=== PATIENT | female | born 1980 | race Caucasian/White ===

== ENCOUNTER 2023-03-17 10:43 | Outpatient (OUT) | payer BC, SELFPAY ==
--- NOTE | 2023-03-17 10:52 | XR_ITS ---
The [address] [address] Patient Name: CHASTITY GASPAR MRN: [id number] date: 1980 Sex: F Assigned Patient Location: [facility] Current Patient Location: [facility] Accession/Order Number: [id number] Exam Date: 03/17/2023 10:52 Report Date: 03/17/2023 15:25 At the request of: DAMON LINDER Procedure: XR foot LT min 3V EXAM: XR ankle LT min 3V, XR foot LT min 3V HISTORY: LEFT ANKLE PAIN COMPARISON: 02/04/2023. 01/28/2023. TECHNIQUE: 3 views left ankle. 4 views left foot. FINDINGS: 4 mm wire-like curvilinear metallic foreign body over the medial distal lower leg and similar. Diffuse edema left distal lower leg and ankle with no acute fracture or dislocation. There is mild to moderate degenerative change of the tibiotalar joint. 14 mm metallic wire-like foreign body over the second interspace at the level of the metatarsal shafts is present and similar to prior. Diffuse soft tissue swelling and edema of the left foot. Severe Charcot arthropathy of the left foot is again seen with disruption of the Lisfranc ligament and collapse of the midfoot arch. Findings are overall similar compared to prior. Mild to moderate degenerative change of the great toe MTP joint. IMPRESSION: Marked Charcot arthropathy changes of the foot are similar compared to January and February 2023. Metallic foreign bodies of the foot and distal lower leg similar to prior. Diffuse soft tissue swelling and edema. Electronically authenticated by: KARYN ANTHONY Date: 03/17/2023 15:25
--- NOTE | 2023-03-17 10:53 | XR_ITS ---
The [address] [address] Patient Name: CHASTITY GASPAR MRN: [id number] date: 1980 Sex: F Assigned Patient Location: [facility] Current Patient Location: [facility] Accession/Order Number: [id number] Exam Date: 03/17/2023 10:52 Report Date: 03/17/2023 15:25 At the request of: DAMON LINDER Procedure: XR ankle LT min 3V EXAM: XR ankle LT min 3V, XR foot LT min 3V HISTORY: LEFT ANKLE PAIN COMPARISON: 02/04/2023. 01/28/2023. TECHNIQUE: 3 views left ankle. 4 views left foot. FINDINGS: 4 mm wire-like curvilinear metallic foreign body over the medial distal lower leg and similar. Diffuse edema left distal lower leg and ankle with no acute fracture or dislocation. There is mild to moderate degenerative change of the tibiotalar joint. 14 mm metallic wire-like foreign body over the second interspace at the level of the metatarsal shafts is present and similar to prior. Diffuse soft tissue swelling and edema of the left foot. Severe Charcot arthropathy of the left foot is again seen with disruption of the Lisfranc ligament and collapse of the midfoot arch. Findings are overall similar compared to prior. Mild to moderate degenerative change of the great toe MTP joint. IMPRESSION: Marked Charcot arthropathy changes of the foot are similar compared to January and February 2023. Metallic foreign bodies of the foot and distal lower leg similar to prior. Diffuse soft tissue swelling and edema. Electronically authenticated by: KARYN ANTHONY Date: 03/17/2023 15:25
== END 2023-03-17 10:44 ==
LOC: RAD 10:43
PROVIDERS: PCP Physician Assistant; Visit Provider Physician Assistant
DX: M14.672 Charcot's joint, left ankle and foot (principal)
CPT/HCPCS: 73610; 73630

== ENCOUNTER 2023-04-15 12:53 | Outpatient (OUT) | payer BC, SELFPAY ==
--- NOTE | 2023-04-15 | XR_ITS ---
The [address] [address] Patient Name: CHASTITY GASPAR MRN: [id number] date: 1980 Sex: F Assigned Patient Location: [facility] Current Patient Location: Accession/Order Number: [id number] Exam Date: 04/15/2023 13:10 Report Date: 04/16/2023 07:15 At the request of: FRANCES HARRIS Procedure: XR foot LT min 3V PROCEDURE: XR foot LT min 3V HISTORY: LEFT FOOT PAIN COMPARISON: XR foot left 03/17/2023 FINDINGS: BONES:Advanced degenerative changes the midfoot with fracture or partial obstruction of the navicular bone along with marked widening of the interspace between the medial and middle cuneiforms and the first and second metatarsals seen with Lisfranc fractures. Collapse of the midfoot arch. SOFT TISSUES:Soft tissue swelling surrounding the foot and ankle. Stable thin wire-like metallic foreign body in the soft tissues between the second and third metatarsals. EFFUSION:None visible. OTHER: Negative. XR/XR foot LT min 3V IMPRESSION: 1. Grossly stable advanced degenerative changes consistent with Charcot joint and Lisfranc fracture. Electronically authenticated by: PIPER MERCEDES Date: 04/16/2023 07:15
== END 2023-04-15 12:54 | disposition home or self-care (01) ==
LOC: RAD 12:53
PROVIDERS: Visit Provider Podiatrist Foot & Ankle Surgery
DX: M14.672 Charcot's joint, left ankle and foot (principal)
CPT/HCPCS: 73630

== ENCOUNTER 2023-05-20 13:41 | Outpatient (OUT) | payer BC, SELFPAY ==
--- NOTE | 2023-05-20 | XR_ITS ---
The [address] [address] Patient Name: CHASTITY GASPAR MRN: [id number] date: 1980 Sex: F Assigned Patient Location: [facility] Current Patient Location: [facility] Accession/Order Number: [id number] Exam Date: 05/20/2023 13:57 Report Date: 05/20/2023 22:16 At the request of: FRANCES HARRIS Procedure: XR foot LT min 3V PROCEDURE: XR foot LT min 3V COMPARISON: 04/15/2023 HISTORY: LEFT FOOT PAIN FINDINGS: BONES:Severe degenerative changes of the midfoot extending into the forefoot. Periosteal reaction noted along the diaphysis of the third through fifth metatarsals. Enthesopathic spurring plantar calcaneus. Stable lateral subluxation of the second through fifth metatarsals in relation to the tarsal bones, Lisfranc type dislocation SOFT TISSUES:Soft tissue swelling EFFUSION:None visible. OTHER: Negative. XR/XR foot LT min 3V IMPRESSION: Stable severe degenerative changes of the midfoot consistent with neuropathic osteoarthropathy Electronically authenticated by: EMILY ELY Date: 05/20/2023 22:16
== END 2023-05-20 13:42 | disposition home or self-care (01) ==
LOC: RAD 13:41
PROVIDERS: Visit Provider Podiatrist Foot & Ankle Surgery
DX: M79.672 Pain in left foot (principal)
CPT/HCPCS: 73630

== ENCOUNTER 2023-07-29 14:27 | Outpatient (OUT) | payer BC, SELFPAY ==
--- NOTE | 2023-07-29 | XR_ITS ---
The [address] [address] Patient Name: CHASTITY GASPAR MRN: [id number] date: 1980 Sex: F Assigned Patient Location: [facility] Current Patient Location: Accession/Order Number: [id number] Exam Date: 07/29/2023 14:36 Report Date: 07/30/2023 15:05 At the request of: FRANCES HARRIS Procedure: XR foot LT min 3V PROCEDURE: XR foot LT min 3V HISTORY: LEFT FOOT PAIN COMPARISON: XR foot left 05/20/2023 FINDINGS: BONES:Advanced degenerative changes the midfoot with osseous destruction and stable separate fracture fragments. Collapse of plantar arch. SOFT TISSUES:Stable Thin wire-like metallic foreign body within soft tissues between the second third metatarsals. EFFUSION:None visible. OTHER: Negative. XR/XR foot LT min 3V IMPRESSION: 1. Stable advanced degenerative changes consistent with neuropathic joint. Electronically authenticated by: PIPER MERCEDES Date: 07/30/2023 15:05
== END 2023-07-29 14:28 | disposition home or self-care (01) ==
LOC: RAD 14:27
PROVIDERS: Visit Provider Podiatrist Foot & Ankle Surgery
DX: M14.672 Charcot's joint, left ankle and foot (principal)
CPT/HCPCS: 73630

== ENCOUNTER 2023-09-30 15:04 | Outpatient (OUT) | payer BC, SELFPAY ==
--- NOTE | 2023-09-30 | XR_ITS ---
The [address] [address] Patient Name: CHASTITY GASPAR MRN: [id number] date: 1980 Sex: F Assigned Patient Location: [facility] Current Patient Location: Accession/Order Number: [id number] Exam Date: 09/30/2023 15:40 Report Date: 10/02/2023 07:22 At the request of: FRANCES HARRIS Procedure: XR foot LT min 3V PROCEDURE: XR foot LT min 3V HISTORY: LEFT FOOT PAIN COMPARISON: XR foot left 07/29/2023 FINDINGS: BONES:Advanced degenerative and destructive changes of the bones of the midfoot. Complete loss of plantar arch. SOFT TISSUES:Soft tissue swelling surrounding the ankle and proximal foot. Thin wire-like metallic foreign body within soft tissues between the second third metatarsals, unchanged. EFFUSION:None visible. OTHER: Negative. XR/XR foot LT min 3V IMPRESSION: 1. Stable advanced midfoot degenerative changes compatible with neuropathic joint. Electronically authenticated by: PIPER MERCEDES Date: 10/02/2023 07:22
== END 2023-09-30 15:05 | disposition home or self-care (01) ==
LOC: RAD 15:04
PROVIDERS: Visit Provider Podiatrist Foot & Ankle Surgery
DX: M14.672 Charcot's joint, left ankle and foot (principal)
CPT/HCPCS: 73630

== ENCOUNTER 2023-12-01 10:02 | Outpatient (OUT) | payer BC, SELFPAY ==
--- NOTE | 2023-12-01 | XR_ITS ---
The [address] [address] Patient Name: CHASTITY GASPAR MRN: [id number] date: 1980 Sex: F Assigned Patient Location: Current Patient Location: Accession/Order Number: [id number] Exam Date: 12/01/2023 10:05 Report Date: 12/01/2023 10:50 At the request of: FRANCES HARRIS Procedure: XR foot LT min 3V PROCEDURE: XR foot LT min 3V COMPARISON: 09/30/2023 HISTORY: LEFT FOOT PAIN FINDINGS: BONES:Marked destructive changes of the midfoot and midfoot forefoot junction with bony remodeling and lateral subluxation of the metatarsals in relation to the tarsal bones, grossly stable. Fracture of the medial cuneiform. Moderate enthesopathic spurring plantar calcaneus SOFT TISSUES:Linear radiopaque foreign body projects over the medial third metatarsal EFFUSION:None visible. OTHER: Negative. XR/XR foot LT min 3V IMPRESSION: Severe degenerative changes of the midfoot with bony remodeling consistent with neuropathic osteoarthropathy Electronically authenticated by: EMILY ELY Date: 12/01/2023 10:50
--- OUTSIDE RECORDS SUMMARY | 2023-12-01 10:08 | XMS_ITS | CCD ---
Author Name Unknown Address [address] [place] [address] Organization [facility] Care Team Providers [facility] Manager Name Role Phone Back, Felipe Unavailable Unavailable DAKSHA KING Unavailable Unavailable SHANICE JUARES Unavailable Unava ilable GHAZOUL, GAYE Unavailable Unavailable GHAZOUL, GAYE Unavailable Unavailable GHAZOUL, GAYE Unavailable Unavailable GHAZOUL, GAYE Unavailable Unavailable Back, Bill Unavailable SYSTEM, PROVIDER NOT IN Unavailable Unavaila ble HARTMAN, GOSIA Unavailable Unavailable SYSTEM, PROVIDER NOT IN Unavailable Unavaila ble HARTMAN, GOSIA Unavailable Unavailable GHAZOUL, GAYE Unavailable Unavailable SELF, SELF Unavailable Unavailable GHAZOUL, GAYE Unavailable Unavailable GHAZOUL, GAYE Unavailable Unavailable GHAZOUL, GAYE Unavailable Unavailable GHAZOUL, GAYE Unavailable Unavailable BACK, BILL Unavailable Unavailable HARTMAN, GOSIA Unavailable Unavailable HARTMAN, GOSIA Unavailable Unavailable GHAZOUL, GAYE Unavailable Unavailable BACK, BILL Unavailable Unavailable Hartman, Gosia Unavailable Unavailable Hartman, Gosia Unavailable Unavailable Hartman, Gosia Unavailable Unavailable Hartman, Gosia Unavailable Unavailable Hartman, Gosia Unavailable Unavailable Hartman, Gosia Unavailable Unavailable JV APPLE Admitting Unavailable CURT SUMMERS Referring Unavailable BACK, FELIPE Primary Care Unavailable MORGAN LUIS Consulting Unavailable NANY HOLLIS Attending Unavailable KIERA TERRY Consulting Unavailable LITA MCCRAY Consulting Unavailable Hartman, Dav Admitting Unavailable Hartman, Dav Attending Unavailable Andrey Early Admitting Unavailable Andrey Early Attending Unavailable Mor, Shanice Admitting Unavailable Mor, Shanice Attending Unavailable Melchor Calderon Admitting Unavailable Melchor Calderon Attending Unavailable TIFFANIE CASAS Attending Unavailable TIFFANIE CASAS Referring Unavailable BACK, FELIPE Primary Care Unavailable Back, Felipe Primary Care Provider Back, Felipe Primary Care Provider [phone] Back, Felipe Primary Care Provider Unavailabl e Back , Felipe Primary Care Provider Back , Felipe Primary Care Provider Back , Felipe Primary Care Provider [phone] BACK, FELIPE Primary Care Unavailable MUTNAL, AMAR Admitting Unavailable MUTNAL, AMAR Attending Unavailable Back , Felipe Primary Care Provider [phone] NON STAFF Primary Care Provider UnavailMD Tiffanie Mixon. Attending Provider Back , Felipe Primary Care Provider [phone] YOON COBB Referring Unavailable BACK, FELIPE Primary Care Unavailable Back , Felipe Primary Care Provider KALPESH ARENAS Attending Unavail able BACK, FELIPE Primary Care Unavailable Back , Felipe Primary Care Provider [phone] FRANCES HARRIS Admitting Unavailable FRANCES HARRIS Attending Unavailable FRANCES HARRIS Consulting Unavailable HIGHLFRANCES HERNANDEZ Admitting Unavailable HIGHLFRANCES HERNANDEZ Attending Unavailable [facility], DR PIPER Ackerman Consulting Unavailable HIGHLANDERFRANCES Consulting Unavailable HIGHLANDERFRANCES Admitting Unavailable HIGHLANDERFRANCES Attending Unavailable MARKHAM, DR EMILY Riojas Consulting Unavailable HIGHLFRANCES HERNANDEZ Consulting Unavailable Back , Felipe Primary Care Provider [phone] ROBBIN SHOOK II Admitting Un available HASSMANN II, ROBBIN DAHL Referring Un available BACK, FELIPE Primary Care Unavailable HASSMANN II, ROBBIN DAHL Attending Un available BACK, FELIPE Primary Care Unavailable BACK, FELIPE Primary Care Unavailable HASSMANN II, ROBBIN DAHL Attending Un available Back Felipe MELENDREZ Primary Care Provider [phone] BACKFELIPE Referring Unavailable BACK, FELIPE Primary Care Unavailable BACK, FELIPE Primary Care Unavailable TIFFANIE CASAS Referring Unavailable BACK, FELIPE Primary Care Unavailable ERIK LYMAN Referring Unavailable TIFFANIE CASAS Referring Unavailable BACK, FELIPE Primary Care Unavailable BACK, FELIPE Primary Care Unavailable JERICA KRISHNAMURTHY Referring Unavailable BACK, FELIPE Referring Unavailable BACK, FELIPE Primary Care Unavailable TIFFANIE CASAS Attending Unavailable TIFFANIE CASAS Attending Unavailable Allergies Allergy Classification Reported Allergen(s) Allergy Type Date of Onset Reaction(s) Facility (3 sources) Chlorhexidine; Translations: [CHLORHEXIDINE] Drug Allergy 03-03-2023 Rash [facility] Medications Current Medications Medication Drug Class(es) Dates Sig (Normalized) Sig (Original) acetaminophen 325 mg / HYDROcodone bitartrate 5 mg oral tablet (10 sources) Opioid Agonist Start: 03-12-2019 HYDROcodone-acetam inophen (NORCO) 5-325 MG per tablet take 1 tablet by prabhjot every eight hours as needed hydroCODone-acetaminophen 5-325 MG Tab t ablet take 1 tablet by mouth every 8 hours as needed. Active amoxicillin 875 mg / clavulanate 125 mg oral tablet (1 source) Penicillin-class Antibacterial Start: 08-08-2020 End: 08-15-2020 take 1 tablet by mouth twice daily amoxicillin-clavulanate (AUGMENTIN) 875-125 MG per tablet Indications: Bacterial sinusitis Take 1 tablet by mouth 2 times daily for 7 days 14 tablet 0 08/08/2020 08/15/2020 Active 24 hr amphetamine aspartate 5 mg / amphetamine sulfate 5 mg / dextroamphetamine saccharate 5 mg / dextroamphetamine sulfate 5 mg extended release oral capsule (2 sources) Central Nervous System Stimulant Start: 02-25-2023 dextroamphetamine-ampheta mine (ADDERALL XR) 20 MG 24 hr capsule Start: 01-14-2023 take 1 capsule by mo uth once daily in the morning amphetamine-dextroamphetamine (ADDERALL XR) 20 MG extended release capsule Take 1 capsule by mouth every morning. 0 01/14/2023 Active b complex vitamins (Vitamins B Complex) capsule (1 source) take 1 capsule by mouth once daily b complex vitamins (Vitamins B Complex) capsule Take 1 (one) capsule by mouth daily . 0 Active b complex vitamins capsule (20 sources) take 1 capsule by mouth once daily b complex vitamins capsule Take 1 capsule by mouth daily 0 Active baclofen 10 mg oral tablet (9 sources) gamma-Aminobutyric Acid-ergic Agonist Start: 02-26-2023 take 2 tablets by mouth at bedtime baclofen (LIORESAL) 10 MG tablet TAKE 2 TABLETS BY MOUTH AT BEDTIME FOR 30 DAYS 0 02/26/2023 Active Start: 04-19-2022 baclofen (DORA ESAL) 10 MG tablet biotin 1 mg oral tablet (9 sources) Start: 02-26-2022 Biotin 1000 MC G TABS busPIRone hydrochloride 10 mg oral tablet (6 sources) take 1 tablet by mouth three times daily busPIRone (BUSPAR) 10 MG tablet Take 10 mg by mouth 3 times daily 0 Active calcium carbonate 500 mg oral tablet (3 sources) take 1 tablet by mouth twice daily calcium carbonate (OSCAL) 500 MG TABS tablet Take 1 tablet by mouth 2 times daily 0 Active calcium carbonat e (CALCIUM 500 ORAL) Take by mouth . 0 Active cephalexin 250 mg oral capsule (2 sources) Cephalosporin Antibacterial Start: 08-07-2022 take 1 capsule by mouth once daily as needed for urinary tract infection cephALEXin (KEFLEX) 250 MG capsule Indications: Frequent UTI Take 1 capsule by mouth daily as needed (post-coital UTI prophylaxis) 30 capsule 1 08/07/2022 Active cholecalciferol 0.05 mg oral capsule (20 sources) Vitamin D Start: 09-11-2014 take 1 capsule by mouth once daily Cholecalciferol (VITAMIN D) 2000 UNITS CAPS capsule Indications: Vitamin D deficiency Take 1 capsule by mouth daily. 30 capsule 12 09/11/2014 Active cholecalciferol, vitamin D3, (VITAMIN D3) 2,000 unit Tab Take by mouth. 0 Active ciprofloxacin 250 mg oral tablet (1 source) Quinolone Antimicrobial Start: 04-13-2021 End: 04-16-2021 take 1 tablet by mouth twice daily ciprofloxacin (CIPRO) 250 MG tablet Indications: Acute cystitis with hematuria Take 1 tablet by mouth 2 times daily for 3 days 6 tablet 0 04/13/2021 04/16/2021 Active clindamycin 150 mg oral capsule (6 sources) Lincosamide Antibacterial Start: 07-26-2019 clindamycin (CLEOCIN) 150 MG capsule cyclobenzaprine hydrochloride 5 mg oral tablet (16 sources) Muscle Relaxant take 0.5 tablet by mouth once daily cyclobenzaprine (FLEXERIL) 5 MG tablet Take 5 mg by mouth nightly 1/2 tablet every night 0 Active 24 hr desvenlafaxine succinate 25 mg extended release oral tablet (1 source) Serotonin and Norepinephrine Reuptake Inhibitor Start: 07-29-2021 desvenlafaxine succinate (PRISTIQ) 25 MG TB24 extended release tablet 25 mg daily 0 07/29/2021 Active dextromethorphan hydrobromide 15 mg / guaiFENesin 400 mg / pseudoephedrine hydrochloride 60 mg oral tablet (1 source) alpha-Adrenergic Agonist, Uncompetitive C-zrbujm-[id number]-aspartat e Receptor Antagonist, Sigma-1 Agonist Start: 02-13-2021 End: 02-20-2021 take 1 tablet by mouth every six hours as needed Pseudoephedrine-DM- GG (CAPMIST DM) 60-15-400 MG TABS Take 1 tablet by mouth every 6 hours as needed (Sinus pressure) 28 tablet 0 02/13/2021 02/20/2021 Active diclofenac sodium 0.01 mg/mg topical gel (20 sources) Nonsteroidal Anti-inflammatory Drug Start: 01-06-2023 diclofenac sodium (VOLTAREN) 1 % GEL Start: 05-19-2019 diclofenac sod ium 1 % GEL doxycycline hyclate 100 mg oral capsule (15 sources) Tetracycline-class Drug Start: 09-20-2018 End: 12-12-2020 take 1 capsule by mouth twice daily doxycycline hyclate (VIBRAMYCIN) 100 MG capsule Indications: MRSA (methicillin resistant Staphylococcus aureus) septicemia (HCC) Take 1 capsule by mouth 2 times daily 180 capsule 3 07/28/2019 07/27/2020 Active DULoxetine 30 mg delayed release oral capsule (6 sources) Serotonin and Norepinephrine Reuptake Inhibitor Start: 04-19-2022 DULoxetine (CYMBALTA) 30 MG extended release capsule take 1 capsule by mouth once allen ly DULoxetine (CYMBALTA) 60 MG capsule Take 60 mg by mouth daily. 0 Active erythromycin 0.005 mg/mg ophthalmic ointment (2 sources) Macrolide, Macrolide Antimicrobial Start: 08-19-2017 erythromycin 5 MG/GM Ointment ophthalmic ointment Apply to eye incisions 2 x a day 1 Tube 0 08/19/2017 Active famotidine 20 mg oral tablet (6 sources) Histamine-2 Receptor Antagonist Start: 05-26-2023 take 1 tablet by mouth twice daily famotidine (PEPCID) 20 MG tablet Indications: Gastroesophageal reflux disease without esophagitis Take 1 tablet by mouth 2 times daily 60 tablet 5 05/26/2023 Active Start: 2022 take 1 tablet by prabhjot th twice daily famotidine (PEPCID) 20 MG tablet Indications: Gastroesophageal reflux disease without esophagitis Take 1 tablet by mouth 2 times daily 60 tablet 3 2022 Active fluconazole 150 mg oral tablet (1 source) Azole Antifungal Start: 06-06-2021 fluconazole (DIFLUCAN) 150 MG tablet Indications: Antibiotic-induced yeast infection Take 1 tablet by mouth at first sign of yeast infection and repeat in 72 hours for severe infection. 2 tablet 0 06/06/2021 Active fluticasone propionate 0.05 mg/actuat metered dose nasal spray (20 sources) Corticosteroid Start: 09-22-2022 take 2 spray(s) nasal route once daily fluticasone (FLONASE) 50 MCG/ACT nasal spray Indications: Seasonal allergies USE 2 SPRAYS IN EACH NOSTRIL DAILY 48 g 3 09/22/2022 Active Start: 04-11-2022 take 2 spray(s) nasa l route once daily fluticasone (FLONASE) 50 MCG/ACT nasal spray Indications: Seasonal allergies 2 sprays by Each Nostril route daily 3 each 1 04/11/2022 Active Start: 02-13-2021 take 2 spray(s) nasa l route once daily fluticasone (FLONASE) 50 MCG/ACT nasal spray 2 sprays by Each Nostril route daily 3 Bottle 1 02/13/2021 Active fluticasone 50 M CG/ACT Suspension nasal spray 2 sprays by Nasal route daily. Active gabapentin 600 mg oral tablet (2 sources) Anti-epileptic Agent Start: 06-09-2017 take 1 tablet by mouth twice daily gabapentin 600 MG Tab take 600 mg by mouth 2 times daily. 06/09/2017 Active gemfibrozil 600 mg oral tablet (20 sources) Peroxisome Proliferator Receptor alpha Agonist Start: 02-12-2023 gemfibrozil (LOPID) 600 MG tablet Indications: Mixed hyperlipidemia TAKE 1 TABLET TWICE A DAY 30 MINUTES BEFORE BREAKFAST AND SUPPER 180 tablet 3 02/12/2023 Active Start: 04-11-2022 gemfibrozil (L OPID) 600 MG tablet Indications: Mixed hyperlipidemia TAKE 1 TABLET TWICE A DAY 30 MINUTES BEFORE BREAKFAST AND SUPPER 180 tablet 1 04/11/2022 Active Start: 01-02-2022 gemfibrozil (L OPID) 600 MG tablet Indications: Mixed hyperlipidemia TAKE 1 TABLET TWICE A DAY 30 MINUTES BEFORE BREAKFAST AND SUPPER 180 tablet 1 01/02/2022 Active Start: 10-09-2020 gemfibrozil (L OPID) 600 MG tablet Indications: Mixed hyperlipidemia TAKE 1 TABLET TWICE A DAY 30 MINUTES BEFORE BREAKFAST AND SUPPER 180 tablet 1 10/09/2020 Active Start: 01-31-2020 gemfibrozil (L OPID) 600 MG tablet Indications: Mixed hyperlipidemia TAKE 1 TABLET TWICE A DAY 30 MINUTES BEFORE BREAKFAST AND SUPPER 180 tablet 1 01/31/2020 Active Start: 06-09-2017 gemfibrozil (L OPID) 600 MG tablet Indications: Mixed hyperlipidemia TAKE 1 TABLET TWICE A DAY 30 MINUTES BEFORE BREAKFAST AND SUPPER 180 tablet 1 05/18/2019 Active lansoprazole 30 mg delayed release oral capsule (5 sources) Proton Pump Inhibitor take 1 capsule by mouth once daily lansoprazole (PREVACID) 30 MG capsule Take 30 mg by mouth daily. 0 Active lisdexamfetamine dimesylate 40 mg oral capsule (20 sources) Central Nervous System Stimulant Start: 03-04-20 VYVANSE 40 MG CAPS Start: 05-06-2021 VYVANSE 40 MG CAPS daily. 0 05/06/2021 Active Start: 01-10-2021 VYVANSE 20 MG CAPS loperamide hydrochloride 2 mg oral capsule (1 source) Opioid Agonist Start: 01-21-2021 End: 01-26-2021 take 1 capsule by mouth four times daily as needed for diarrhea loperamide (RA ANTI-DIARRHEAL) 2 MG capsule Indications: Diarrhea in adult patient Take 1 capsule by mouth 4 times daily as needed for Diarrhea 20 capsule 0 01/21/2021 01/26/2021 Active melatonin 3 mg oral tablet (15 sources) melatonin 3 mg T ab Take by mouth nightly. 0 Active methocarbamol 500 mg oral tablet (2 sources) Muscle Relaxant Start: 02-08-2019 methocarbamol (ROBAXIN) 500 MG tablet montelukast 10 mg oral tablet (20 sources) Leukotriene Receptor Antagonist Start: 09-22-2022 montelukast (SINGULAIR) 10 MG tablet Indications: Seasonal allergies TAKE 1 TABLET NIGHTLY 90 tablet 3 09/22/2022 Active Start: 04-11-2022 take 1 tablet by prabhjot th once daily montelukast (SINGULAIR) 10 MG tablet Indications: Seasonal allergies Take 1 tablet by mouth nightly 90 tablet 1 04/11/2022 Active Start: 02-22-2020 montelukast (S INGULAIR) 10 MG tablet nitrofurantoin, macrocrystals 25 mg / nitrofurantoin, monohydrate 75 mg oral capsule (1 source) Nitrofuran Antibacterial Start: 06-11-2021 End: 06-16-2021 take 1 capsule by mouth twice daily nitrofurantoin, macrocrystal-monohydrate, (MACROBID) 100 MG capsule Indications: Acute cystitis with hematuria Take 1 capsule by mouth 2 times daily for 5 days 10 capsule 0 06/11/2021 06/16/2021 Active PARoxetine hydrochloride 20 mg oral tablet (5 sources) Serotonin Reuptake Inhibitor Start: 06-09-2017 take 1 tablet by mouth once daily paroxetine 20 MG Tab take 20 mg by mouth daily. 06/09/2017 Active phentermine hydrochloride 37.5 mg oral tablet (3 sources) Sympathomimetic Amine Anorectic Start: 05-26-2023 End: 06-25-2023 take 1 tablet by mouth once daily before breakfast phentermine (ADIPEX-P) 37.5 MG tablet Indications: Class 2 severe obesity due to excess calories with serious comorbidity and body mass index (BMI) of 38.0 to 38.9 in adult ([facility]) Take 1 tablet by mouth every morning (before breakfast) for 30 days. Max Daily Amount: 37.5 mg 30 tablet 0 05/26/2023 06/25/2023 Active Start: 05-27-2019 End: 06-26-2019 take 40-44.9 capsules by mouth once daily in the morning phentermine (ADIPEX-P) 37.5 MG capsule Indications: Class 3 severe obesity due to excess calories without serious comorbidity with body mass index (BMI) of 40.0 to 44.9 in adult ([facility]) Take 1 capsule by mouth every morning for 30 days. 30 capsule 0 05/27/2019 06/26/2019 Active predniSONE 20 mg oral tablet (1 source) Start: 09-16-2020 End: 09-21-2020 take 3 tablets by mouth once daily predniSONE (DELTASONE) 20 MG tablet Take 3 tablets by mouth daily for 5 days 15 tablet 0 09/16/2020 09/21/2020 Active pregabalin 300 mg oral capsule (19 sources) Start: 02-20-2022 take 1 capsule by mouth twice daily pregabalin (LYRICA) 300 MG capsule Take 1 capsule by mouth 2 times daily. 0 02/20/2022 Active Start: 08-25-2018 take 1 capsule by mo [facility] three times daily pregabalin (LYRICA) 150 MG capsule Indications: Epidural abscess , Discitis of thoracic region , Infection of thoracic spine (HCC) , Peripheral polyneuropathy Take 1 capsule by mouth 3 times daily for 30 days.. 90 capsule 0 08/25/2018 Active raNITIdine 150 mg oral tablet (1 source) Histamine-2 Receptor Antagonist Start: 12-09-2019 take 1 tablet by mouth twice daily raNITIdine (ZANTAC) 150 MG tablet Indications: Epigastric abdominal pain Take 1 tablet by mouth 2 times daily 60 tablet 3 12/09/2019 Active rimegepant 75 mg disintegrating oral tablet (9 sources) Start: 01-02-[address] 1 TABLET ON OR UNDER THE TONGUE EVERY OTHER DAY 0 01/02/2022 Active rOPINIRole 0.5 mg oral tablet (20 sources) Nonergot Dopamine Agonist Start: 02-10-2023 rOPINIRole (REQUIP) 0.5 MG tablet Start: 04-02-2021 take 1 tablet by prabhjot th three times daily rOPINIRole (REQUIP) 1 MG tablet Take 1 tablet by mouth 3 times daily 0 04/02/2021 Active Start: 12-26-2020 rOPINIRole (RE QUIP) 0.5 MG tablet take 1 tablet by prabhjot twice daily rOPINIRole (REQUIP) 0.5 MG tablet Take 0.5 mg by mouth 2 times daily 0 Active sertraline 100 mg oral tablet (20 sources) Serotonin Reuptake Inhibitor Start: 02-25-2023 sertraline (ZOLOFT) 100 MG tablet Start: 07-30-2020 take 2 tablets by mo ut once daily sertraline (ZOLOFT) 100 MG tablet Take 2 tablets by mouth daily Currently decreasing this medication 0 07/30/2020 Active Start: 07-30-2020 take 1 tablet by prabhjot th once daily sertraline (ZOLOFT) 100 MG tablet Take 100 mg by mouth daily Currently decreasing this medication 0 07/30/2020 Active Start: 07-06-2019 take 2 tablets by mo dch once daily sertraline (ZOLOFT) 50 MG tablet Take 100 mg by mouth daily 2 QD 0 07/06/2019 Active Start: 07-06-2019 sertraline (ZO LOFT) 50 MG tablet sucralfate 1000 mg oral tablet (1 source) Aluminum Complex Start: 12-09-2019 take 1 tablet by mouth four times daily before mealtime sucralfate (CARAFATE) 1 GM tablet Indications: Epigastric abdominal pain Take 1 tablet by mouth 4 times daily (before meals and nightly) 120 tablet 0 12/09/2019 Active sulfamethoxazole 800 mg / trimethoprim 160 mg oral tablet (5 sources) Dihydrofolate Reductase Inhibitor Antibacterial, Sulfonamide Antimicrobial Start: 04-28-2022 End: 05-05-2022 take 1 tablet by mouth once in the morning, then take 1 tablet by mouth once at bedtime sulfamethoxazole- trimethoprim (BACTRIM DS) 800-160 MG per tablet Indications: Acute cystitis with hematuria Take 1 tablet by mouth in the morning and 1 tablet before bedtime. Do all this for 7 days. 14 tablet 0 04/28/2022 05/05/2022 Active Start: 01-22-2022 End: 01-29-2022 take 1 tablet by mouth twice daily sulfamethoxazole-trimethoprim (BACTRIM DS;SEPTRA DS) 800-160 MG per tablet Take 1 tablet by mouth 2 times daily for 7 days 14 tablet 0 01/22/2022 01/29/2022 Active Start: 08-01-2021 End: 10-30-2021 take 1 tablet by mouth once daily sulfamethoxazole-trimethoprim (BACTRIM) 400-80 MG per tablet Indications: Frequent UTI , Urinary urgency , Urinary frequency Take 1 tablet by mouth daily Take one tablet after intercourse 30 tablet 2 08/01/2021 10/30/2021 Active tiZANidine 4 mg oral tablet (14 sources) Central alpha-2 Adrenergic Agonist Start: 05-05-2020 tiZANidine (ZANAFLEX) 4 MG tablet Take by mouth nightly 0 05/05/2020 Active topiramate 25 mg oral tablet (6 sources) Start: 06-27-2019 topiramate (TOPAMAX) 25 MG tablet vilazodone hydrochloride 40 mg oral tablet (8 sources) Start: 05-27-2019 take 1 tablet by mouth once daily vilazodone HCl (VIIBRYD) 40 MG TABS Indications: Depression with anxiety Take 1 tablet by mouth daily 30 tablet 3 05/27/2019 Active Completed/Discontinued Medications Medication Drug Class(es) Dates Sig (Normalized) Sig (Original) cetirizine hydrochloride 10 mg oral capsule (18 sources) Histamine-1 Receptor Antagonist Start: 06-09-2017 End: 03-03-2023 cetirizine 10 mg cap Start: 06-09-2017 Cetirizine HCl (ALL DAY ALLERGY) 10 MG Cap Start: 02-11-2016 take 1 tablet by prabhjot th once daily cetirizine (ZYRTEC) 10 MG tablet TAKE 1 TABLET BY MOUTH DAILY. 30 tablet 4 02/11/2016 Active gadobenate dimeglumine (MULTIHANCE) injection 10 mL (1 source) Start: 06-25-2022 End: 06-25-2022 gadobenate dimeglumine (MULTIHANCE) injection 10 mL icosapent ethyl 1000 mg oral capsule (15 sources) Start: 05-17-2019 End: 09-16-2020 take 2 capsules by mouth twice daily, then take 1 capsule by mouth Icosapent Ethyl (VASCEPA) 1 g CAPS capsule Indications: Mixed hyperlipidemia Take 2 capsules by mouth 2 times daily 120 capsule 5 05/17/2019 09/16/2020 Discontinued (LIST CLEANUP) methylPREDNISolone 125 mg injection (1 source) Corticosteroid Start: 09-16-2020 End: 09-16-2020 methylPREDNISolone sodium (SOLU-MEDROL) injection 125 mg Start: 09-16-2020 End: 09-16-2020 methylPREDNISolone sodium (S RON-MEDROL) injection 125 mg 2 ml orphenadrine citrate 30 mg/ml injection (1 source) Muscle Relaxant Start: 09-16-2020 End: 09-16-2020 orphenadrine (NORFLEX) injection 30 mg Problems Active Problems Problem Classification Problem Date Documented Date Episodic/Chronic Anxiety disorders (20 sources) Anxiety; Translations: [Mixed anxiety and depressive disorder] Onset: 3 08-15-2018 Chronic Chronic kidney disease (20 sources) Chronic kidney disease stage 3; Translations: [Chronic renal insufficiency] Onset: 4 07-05-2019 Chronic Chronic kidney disease (15 sources) Chronic renal insufficiency; Translations: [Chronic kidney disease] Onset: 4 10-25-2013 Disorders of lipid metabolism (20 sources) Mixed hypercholesterolemia and hypertriglyceridemia; Translations: [Mixed hyperlipidemia] Onset: 3 Resolved: 7 03-19-2017 Chronic Esophageal disorders (20 sources) Gastroesophageal reflux disease; Translations: [Gastro-esophageal reflux disease without esophagitis] Onset: 4 09-08-2014 Chronic Fracture of lower limb (2 sources) Closed fracture of second metatarsal bone; Translations: [Nondisplaced fracture of second metatarsal bone, left foot, initial encounter for closed fracture] Episodic Genitourinary symptoms and ill-defined conditions (5 sources) Dysuria; Translations: [Dysuria] Episodic Immunizations and screening for infectious disease (2 sources) Suspected disease caused by 2019-nCoV; Translations: [Suspected COVID-19 virus infection] Episodic Infective arthritis and osteomyelitis (except that caused by tuberculosis or sexually transmitted disease) (20 sources) Osteomyelitis, unspecified; Translations: [Infection of thoracic spine] Onset: 8 08-24-2018 Chronic Malaise and fatigue (20 sources) Fatigue; Translations: [Chronic fatigue, unspecified] Onset: 2 07-20-2012 Chronic Nephritis; nephrosis; renal sclerosis (20 sources) Chronic glomerulonephritis; Translations: [Chronic nephritic syndrome with unspecified morphologic changes] Onset: 4 07-05-2019 Chronic Nutritional deficiencies (20 sources) Vitamin D deficiency; Translations: [Vitamin D deficiency, unspecified] Onset: 4 08-15-2018 Chronic Other acquired deformities (1 source) Deformity of lower limb; Translations: [Other specified acquired deformities of unspecified lower leg] 03-03-2023 Episodic Other acquired deformities (2 sources) Other specified acquired deformities of unspecified lower leg; Translations: [Other specified acquired deformities of unspecified lower leg] Onset: 05-30-202 3 Episodic Other circulatory disease (4 sources) Other specified symptoms and signs involving the circulatory and respiratory systems; Translations: [OTH SPEC SX SIGNS INVLV CIRC RS] Onset: 3 Episodic Other connective tissue disease (2 sources) Other muscle spasm; Translations: [Other muscle spasm] Onset: 9 Episodic Other connective tissue disease (1 source) Foot pain; Translations: [Pain in unspecified foot] Episodic Other connective tissue disease (1 source) Foreign body; Translations: [Residual foreign body in soft tissue] Episodic Other connective tissue disease (2 sources) Pain in left leg; Translations: [Pain in left leg] Onset: 3 Episodic Other connective tissue disease (7 sources) Pain in left foot; Translations: [PAIN IN LEFT FOOT] Onset: 3 Episodic Other connective tissue disease (1 source) Pain in left foot; Translations: [Pain in left foot] 03-03-2023 Episodic Other hereditary and degenerative nervous system conditions (20 sources) Restless legs; Translations: [Restless legs syndrome] Onset: 1 05-13-2021 Chronic Other lower respiratory disease (1 source) Dyspnea; Translations: [SOB (shortness of breath)] Episodic Other nervous system disorders (3 sources) Polyneuropathy, unspecified; Translations: [Polyneuropathy, unspecified] Onset: 8 Chronic Other nervous system disorders (20 sources) Peripheral nerve disease ; Translations: [Polyneuropathy, unspecified] Onset: 8 12-01-2017 Chronic Other nervous system disorders (20 sources) Carpal tunnel syndrome of right wrist; Translations: [Carpal tunnel syndrome, right upper limb] Onset: 7 03-05-2017 Chronic Other nervous system disorders (13 sources) Carpal tunnel syndrome of right wrist; Translations: [Carpal tunnel syndrome on right] Onset: 7 03-05-2017 Other non-epithelial cancer of skin (15 sources) Basal cell carcinoma of face; Translations: [Basal cell carcinoma of skin of face] Onset: 7 09-16-2017 Chronic Other non-traumatic joint disorders (4 sources) Charcot's joint, left ankle and foot; Translations: [CHARCOTS JOINT LEFT ANKLE AND FO] Onset: 3 Chronic Other non-traumatic joint disorders (1 source) Charcot arthropathy of midfoot; Translations: [Charcot's joint, unspecified ankle and foot] 03-03-2023 Chronic Other non-traumatic joint disorders (2 sources) Charcot's joint, unspecified ankle and foot; Translations: [Charcot's joint, unspecified ankle and foot] Onset: 3 Chronic Other non-traumatic joint disorders (1 source) Pain in left ankle and joints of left foot; Translations: [PAIN IN LEFT ANKLE] Onset: 3 Episodic Other non-traumatic joint disorders (2 sources) Pain in right wrist; Translations: [Pain in right wrist] Onset: 3 Episodic Other screening for suspected conditions (not mental disorders or infectious disease) (20 sources) Elevated C-reactive protein; Translations: [Elevated C-reactive protein (CRP)] 08-18-2018 Episodic Other screening for suspected conditions (not mental disorders or infectious disease) (13 sources) Elevated C-reactive protein; Translations: [Elevated C-reactive protein (CRP)] 08-18-2018 Other skin disorders (1 source) Mass of neck; Translations: [Localized swelling, mass and lump, neck] Episodic Other upper respiratory disease (20 sources) Seasonal allergy; Translations: [Other seasonal allergic rhinitis] Onset: 4 08-15-2018 Chronic Residual codes; unclassified (20 sources) Obstructive sleep apnea syndrome; Translations: [Obstructive sleep apnea (adult) (pediatric)] Onset: 0 05-11-2020 Chronic Residual codes; unclassified (2 sources) Localized edema; Translations: [Localized edema] Onset: 3 Episodic Residual codes; unclassified (1 source) Pain, unspecified; Translations: [Pain, unspecified] Onset: 3 Episodic Septicemia (except in labor) (20 sources) Sepsis; Translations: [Methicillin resistant Staphylococcus aureus infection] Onset: 8 Resolved: 0 08-15-2018 Episodic Spondylosis; intervertebral disc disorders; other back problems (20 sources) Discitis, unspecified, thoracic region; Translations: [Degeneration of thoracic intervertebral disc] Onset: 4 08-15-2018 Chronic Spondylosis; intervertebral disc disorders; other back problems (4 sources) Radiculopathy, cervical region; Translations: [Acute thoracic back pain] Onset: 9 Episodic Thyroid disorders (8 sources) Thyroid nodule; Translations: [Nontoxic single thyroid nodule] Onset: 2 05-27-2022 Chronic Viral infection (1 source) Viral disease; Translations: [Viral infection, unspecified] Episodic Past or Other Problems Problem Classification Problem Date Documented Date Episodic/Chronic Abdominal pain (2 sources) Female genital organ symptoms; Translations: [Pelvic and perineal pain] Onset: 02-05-2023 Episodic Bacterial infection; unspecified site (20 sources) Methicillin resistant Staphylococcus aureus infection; Translations: [Bacteremia due to Methicillin resistant Staphylococcus aureus] Resolved: 05-11-2020 08-18-2018 Episodic Deficiency and other anemia (7 sources) Anemia; Translations: [Anemia, unspecified] Onset: 2022 2022 Episodic Diabetes mellitus without complication (20 sources) Hyperglycemia; Translations: [Hyperglycemia, unspecified] Onset: 06-24-2013 06-24-2013 Episodic Fluid and electrolyte disorders (20 sources) Lactic acidosis; Translations: [Acidosis] Onset: 08-15-2018 Resolved: 05-11-2020 08-15-2018 Episodic Infective arthritis and osteomyelitis (except that caused by tuberculosis or sexually transmitted disease) (20 sources) Suppurative arthritis; Translations: [Infective arthritis] Onset: 08-20-2018 08-20-2018 Episodic Malaise and fatigue (20 sources) Fatigue; Translations: [Other fatigue] Onset: 07-20-2012 07-20-2012 Episodic Medical examination/evaluatio n (2 sources) Encounter for general adult medical examination without abnormal findings; Translations: [Encounter for general adult medical examination without abnormal findings] Onset: 10-20-2017 Episodic Mood disorders (20 sources) Depressive disorder; Translations: [Major depressive disorder, single episode, unspecified] Onset: 07-20-2012 Resolved: 06-24-2013 06-24-2013 Chronic Neoplasms of unspecified nature or uncertain behavior (20 sources) Neoplasm of uncertain behavior of skin; Translations: [Neoplasm of uncertain behavior of skin] Onset: 02-05-2018 08-03-2017 Episodic Other 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 infection and poliomyelitis (20 sources) Extradural and subdural abscess, unspecified; Translations: [Epidural abscess] Onset: 08-20-2018 08-20-2018 Episodic Other connective tissue disease (1 source) Spasm; Translations: [Spasm of muscle] Episodic Other nervous system disorders (20 sources) Metabolic encephalopathy; Translations: [Metabolic encephalopathy] Resolved: 05-11-2020 08-16-2018 Chronic Other non-epithelial cancer of skin (20 sources) Basal cell carcinoma of skin; Translations: [Basal cell carcinoma of skin, unspecified] Onset: 09-16-2017 09-29-2017 Episodic Urinary tract infections (8 sources) Acute cystitis; Translations: [Acute cystitis with hematuria] Onset: 05-17-2023 Episodic Results Test Name Value Interpretation Reference Range Facility XR WRIST RIGHT (MIN 3 VIEWS) on 08-24-2023 XR WRIST RIGHT (MIN 3 VIEWS) EXAM: XR WRIST RIGHT (MIN 3 VIEWS) HISTORY: Pain COMPARISON: None. IMPRESSION: FINDINGS/IMPRESSION: 1. For age there is moderate degenerative change at the STT joint. 2. Otherwise normal for age. 3. No chondrocalcinosis. 4. Early degenerative change at the 1st metacarpophalangeal joint (thumb). Interpreted by: Micky Lauren Jr., MD Signed by: Micky Lauren Jr., MD 08/24/23 Final result Normal [facility] Lipid Panelon 06-15-2023 Cholesterol [Mass/Vol] 174 mg/dL NINF - 200 mg/dL [facility] Comment on above: Cholesterol Guidelines: <200 Desirable 200-240 Borderline >240 Undesirable Cholesterol in HDL [Mass/Vol] 30 mg/dL Low 40 - PINF mg/dL [facility] Comment on above: HDL Guidelines: <40 Undesirable 40-59 Borderline >59 Desirable Cholesterol in LDL [Mass/Vol] 77 mg/dL 0 - 130 mg/dL [facility] [employer] Comment on above: LDL Guidelines: <100 Desirable 100-129 Near to/above Desirable 130-159 Borderline >159 Undesirable Direct (measured) LDL and calculated LDL are not interchangeable tests. Cholesterol.total/Cho lesterol in HDL [Mass ratio] 5.8 {ratio} High NINF - 5 [facility] [employer] Interpretation and review of laboratory results Abnormal [facility] Triglyceride [Mass/Vol] 334 mg/dL High NINF - 150 mg/dL [facility] Comment on above: Triglyceride Guidelines: <150 Desirable 150-199 Borderline 200-499 High >499 Very high Based on AHA Guidelines for fasting triglyceride, July 2012. [facility] Lipid Profileon 06-15-2023 Cholesterol [Mass/Vol] 174 mg/dL Normal <200 [facility] Comment on above: Result Comment: Cholesterol Guidelines: <200 Desirable 200-240 Borderline >240 Undesirable Performed By: #### L IPR #### [employer] [address] [place] [id number] Parking Garage Manager: Placido Pierce MD Cholesterol in HDL [Mass/Vol] 30 mg/dL Low >40 [facility] Comment on above: Result Comment: HDL Guidelines: <40 Undesirable 40-59 Borderline >59 Desirable Performed By: #### L IPR #### [employer] [address] [place] [address] [id number] Parking Garage Manager: Placido Pierce MD Cholesterol in LDL [Mass/Vol] 77 mg/dL Normal 0-130 [facility] Comment on above: Result Comment: LDL Guidelines: <100 Desirable 100-129 Near to/above Desirable 130-159 Borderline >159 Undesirable Direct (measured) LDL and calculated LDL are not interchangeable tests. Performed By: #### L IPR #### [employer] [address] [place] [address] Parking Garage Manager: Placido Pierce MD Cholesterol.total/Cho lesterol in HDL [Mass ratio] 5.8 {ratio} High <5 [facility] Comment on above: Performed By: #### L IPR #### [employer] [address] [place] [address] Parking Garage Manager: Placido Pierce MD Triglyceride [Mass/Vol] 334 mg/dL High <150 [facility] Comment on above: Result Comment: Triglyceride Guidelines: <150 Desirable 150-199 Borderline 200-499 High >499 Very high Based on AHA Guidelines for fasting triglyceride, July 2012. Performed By: #### L IPR #### [employer] [address] [place] [address] [place] [phone] Parking Garage Manager: Placido Pierce MD US THYROIDon 06-15-2023 US THYROID EXAM: US THYROID HISTORY: Thyroid nodule COMPARISON: 05/27/2022 thyroid ultrasound. FINDINGS: The hypoechoic nodule with macrocalcification, taller than wide in the right lobe measures 6 x 6 x 5 mm and is stable. TI-RADS 5. A benign nodule in the inferior left lobe, solid, wider than tall, nearly isoechoic is stable. Right lobe: 4.9 x 1.3 x 1.7 cm. Isthmus: 4 mm. Left lobe: 4.9 x 1.2 x 1.4 cm. IMPRESSION: Stable subcentimeter right thyroid nodule (less than 1 cm diameter-meets criteria for follow-up, not biopsy). Continued yearly follow-up is recommended. Interpreted by: Micky Lauren Jr., MD Signed by: Micky Lauren Jr., MD 06/15/23 Final result Normal [facility] PTH, Intacton 05-17-2023 PTH, Intact 47.1 pg/mL Normal 14.0-72.0 [facility] Comment on above: Result Comment: SAMP LES FROM PATIENTS ROUTINELY RECEIVING HIGH DOSE BIOTIN THERAPY MAY SHOW FALSELY DEPRESSED RESULTS. ADDITIONAL INFORMATION MAY BE REQUIRED FOR DIAGNOSIS. Performed By: #### B UNCRT, K, NA, GLU, CL, CDP #### [facility] [address] [place] [address] Parking Garage Manager: Emily George MD #### GLYHGB #### [facility] [address] [place], [place] [phone] Parking Garage Manager: Placido Pierce MD Protein,Tot,[place] 2022 Creatinine [Mass/Vol] 146.1 mg/dL Normal 28.0-217.0 [facility] Comment on above: Performed By: #### B UNCRT, K, NA, GLU, CL, CDP #### [facility] [address] [place] [address] Parking Garage Manager: Emily George MD #### GLYHGB #### [address] [address] Parking Garage Manager: Placido Pierce MD Tot Prot. Conc. 10 mg/dL Normal [facility] Comment on above: Result Comment: No n ormal range established. Performed By: #### B UNCRT, K, NA, GLU, CL, CDP #### [facility] [address] [place] [address] Parking Garage Manager: Emily George MD #### GLYHGB #### [address] [address] Parking Garage Manager: Placido Pierce MD TP/Cre Ratio 0.07 Normal 0.00-0.20 [facility] Comment on above: Performed By: #### B UNCRT, K, NA, GLU, CL, CDP #### [facility] [address] [place] [phone] ( Parking Garage Manager: Emily George MD #### GLYHGB #### [address] [phone] Parking Garage Manager: Placido Pierce MD Renal Function Panelon 05-17 Albumin [Mass/Vol] 4.1 g/dL Normal 3.5-5.2 [facility] Comment on above: Performed By: #### B UNCRT, K, NA, GLU, CL, CDP #### [facility] [address] [place] [phone] Parking Garage Manager: Emily George MD #### GLYHGB #### [address] [phone] Parking Garage Manager: Placido Pierce MD Anion gap [Moles/Vol] 7 mmol/L Low 9-17 [facility] Comment on above: Performed By: #### B UNCRT, K, NA, GLU, CL, CDP #### [facility] [address] [place] [address] ( Parking Garage Manager: Emily George MD #### GLYHGB #### [address] [phone] Parking Garage Manager: Placido Pierce MD BUN/CRE Ratio 15 Normal 9-20 [facility] Comment on above: Performed By: #### B UNCRT, K, NA, GLU, CL, CDP #### [facility] [address] [place] [phone] ( Parking Garage Manager: Emily George MD #### GLYHGB #### [place] [phone] Parking Garage Manager: Placido Pierce MD Calcium [Mass/Vol] 9.5 mg/dL Normal 8.6-10.4 [facility] Comment on above: Performed By: #### B UNCRT, K, NA, GLU, CL, CDP #### [facility] [address] [place] [address] Parking Garage Manager: Emily George MD #### GLYHGB #### [address] [phone] Parking Garage Manager: Placido Pierce MD Chloride [Moles/Vol] 101 mmol/L Normal 98-107 [facility] Comment on above: Performed By: #### B UNCRT, K, NA, GLU, CL, CDP #### [facility] [address] [place] [address] Parking Garage Manager: Emily George MD #### GLYHGB #### [address] [phone] Parking Garage Manager: Placido Pierce MD CO2 [Moles/Vol] 29 mmol/L Normal 20-31 [facility] Comment on above: Performed By: #### B UNCRT, K, NA, GLU, CL, CDP #### [facility] [address] [place], [place] [phone] Parking Garage Manager: Emily George MD #### GLYHGB #### [place] [id number] [place], [place] [phone] Parking Garage Manager: Placido Pierce MD Creatinine [Mass/Vol] 1.1 mg/dL High 0.5-0.9 [facility] Comment on above: Performed By: #### B UNCRT, K, NA, GLU, CL, CDP #### [facility] [address] [place] [address] Parking Garage Manager: Emily George MD #### GLYHGB #### [place] [address] [place] [address] Parking Garage Manager: Placido Pierce MD GFR/1.73 sq M.predicted among non-blacks MDRD (S/P/Bld) [Vol rate/Area] mL/min/{1.73_m2} Normal >60 [facility] Comment on above: Result Comment: These results are not intended for use in patients <18 years of age. eGFR results are calculated without a race factor using the 2020 CKD-EPI equation. Careful clinical correlation is recommended, particularly when comparing to results calculated using previous equations. The CKD-EPI equation is less accurate in patients with extremes of muscle mass, extra-renal metabolism of creatine, excessive creatine ingestion, or following therapy that affects renal tubular secretion. Performed By: #### B UNCRT, K, NA, GLU, CL, CDP #### [facility] [address] [place], [place] [phone] Parking Garage Manager: Emily George MD #### GLYHGB #### [place] [address] [place], [place] [phone] Parking Garage Manager: Placido Pierce MD Glucose [Mass/Vol] 105 mg/dL High 70-99 [facility] Comment on above: Performed By: #### B UNCRT, K, NA, GLU, CL, CDP #### [facility] [address] [place], [place] [phone] Parking Garage Manager: Emily George MD #### GLYHGB #### [address] [phone] Parking Garage Manager: Placido Pierce MD Phosphorus, Inorg. 3.0 mg/dL Normal 2.6-4.5 [facility] Comment on above: Performed By: #### B UNCRT, K, NA, GLU, CL, CDP #### [facility] [address] [place] [address] Parking Garage Manager: Emily George MD #### GLYHGB #### [address] [phone] Parking Garage Manager: Placido Pierce MD Potassium [Moles/Vol] 4.3 mmol/L Normal 3.7-5.3 [facility] Comment on above: Performed By: #### B UNCRT, K, NA, GLU, CL, CDP #### [facility] [address] [place] [address] Parking Garage Manager: Emily George MD #### GLYHGB #### [address] [phone] Parking Garage Manager: Placido Pierce MD Sodium [Moles/Vol] 137 mmol/L Normal 135-144 [facility] Comment on above: Performed By: #### B UNCRT, K, NA, GLU, CL, CDP #### [facility] [address] [place] [address] Parking Garage Manager: Emily George MD #### GLYHGB #### [address] [phone] Parking Garage Manager: Placido Pierce MD Urea nitrogen [Mass/Vol] 17 mg/dL Normal 6-20 [facility] Comment on above: Performed By: #### B UNCRT, K, NA, GLU, CL, CDP #### [facility] [address] [place], [place] [phone] Parking Garage Manager: Emily George MD #### GLYHGB #### [facility] [address] [place], [place] [phone] Parking Garage Manager: Placido Pierce MD Vitamin D 25 OHon 05-17-2023 Vitamin D 25 [place] 53.1 ng/mL Normal >29.9 [facility] Comment on above: Result Comment: Reference Range: Vitamin D status Range Deficiency <20 ng/mL Mild Deficiency 20-30 ng/mL Sufficiency 30-100 ng/mL Toxicity >100 ng/mL Performed By: #### B UNCRT, K, NA, GLU, CL, CDP #### [facility] [address] [place] [address] Parking Garage Manager: Emily George MD #### GLYHGB #### [facility] [employer] [address] [place], [place] [phone] Parking Garage Manager: Placido Pierce MD XR ORTHO FOOT LEFTon 023 XR ORTHO FOOT LEFT 3 views of the left foot reviewed today AP MO and lateral. 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 Collapse at the naviculocuneiform joint. Decrease in calcaneal inclination angle and extremely negative Meary's angle. Patient does have some plantar prominence noted that appears to be the cuboid. Dorsal fragmentation present within the space. Also there is a foreign body that appears to be in the second intermetatarsal space close to the third metatarsal that lies deep within the central aspect of the foot. Dictated by: MASSIMO SHOOK on ThuMarch 04, 2023 4:22:25 PM EDT Transcribed by: MASSIMO SHOOK on ThuMarch 04, 2023 4:22:25 PM EDT Finalized by: MASSIMO SHOOK on ThuMarch 04, 2023 4:22:25 PM EDT Normal [facility] Comment on above: Order Comment: Injur y/Trauma or Illness?:Illness/Other How long have you had these symptoms (acute/chronic)?:Chronic Reason for exam?:Left foot charcot History of cancer?:Unknown Surgeries, chemotherapy, or radiation?:Unknown Type of Exam?:Initial Additional signs and symptoms?:Left foot charcot Cult,Urineon 02-07-2023 Cult,Urine Specimen Description .CLEAN CATCH URINE Culture ESCHERICHIA COLI >[id number] CFU/ML Report Status FINAL 02/07/2023 SUSCEPTIBILITY Organism ESCHERICHIA COLI Method SONIA Ampicillin >=32 RESISTANT Cefazolin <=4 SUSCEPTIBLE Cefazolin sensitivity results can be used to predict the effectiveness of oral cephalosporins (eg. Cephalexin) in uncomplicated Urinary Tract Infections due to E. coli, K. pneumoniae, and P. mirabilis Ceftriaxone <=0.25 SUSCEPTIBLE ESBL NEGATIVE Gentamicin <=1 SUSCEPTIBLE Levofloxacin >=8 RESISTANT Nitrofurantoin <=16 SUSCEPTIBLE Piperacillin/Tazobact am <=4 SUSCEPTIBLE Tobramycin <=1 SUSCEPTIBLE Trimethoprim/Sulfa >=320 RESISTANT Resistant [facility] Comment on above: Performed By: #### B UNCRT, K, NA, GLU, CL, CDP #### [facility] [address] [place] [address] Parking Garage Manager: Emily George MD #### GLYHGB #### [facility] [employer] [facility] [place], [place] [phone] Parking Garage Manager: Placdio Pierce MD Hemoglobin A1Con 02-06-2023 Glucose [Mass/Vol] 103 mg/dL Normal [facility] Comment on above: Result Comment: The ADA and AACC recommend providing the estimated average glucose result to permit better patient understanding of their HBA1c result. Performed By: #### B UNCRT, K, NA, GLU, CL, CDP #### [facility] [address] [place] [address] Parking Garage Manager: Emily George MD #### GLYHGB #### [facility] [employer] [facility] [place], [place] [phone] Parking Garage Manager: Placido Pierce MD HbA1c (Bld) [Mass fraction] 5.2 % Normal 4.0-6.0 [facility] Comment on above: Performed By: #### B UNCRT, K, NA, GLU, CL, CDP #### [facility] [address] [place] [address] Parking Garage Manager: Emily George MD #### GLYHGB #### [facility] [address] [place] [address] Parking Garage Manager: Placido Pierce MD BUN & Creatinineon 3 Creatinine [Mass/Vol] 1.08 mg/dL High 0.50 - 0.90 mg/dL [facility] GFR/1.73 sq M.predicted MDRD (S/P/Bld) [Vol rate/Area] - PINF [facility] Comment on above: These results are not intended for use in patients <18 years of age. eGFR results are calculated without a race factor using the 2020 CKD-EPI equation. Careful clinical correlation is recommended, particularly when comparing to results calculated using previous equations. The CKD-EPI equation is less accurate in patients with extremes of muscle mass, extra-renal metabolism of creatine, excessive creatine ingestion, or following therapy that affects renal tubular secretion. Urea nitrogen [Mass/Vol] 21 mg/dL High 6 - 20 mg/dL [facility] BUN + Creatinineon 3 Creatinine [Mass/Vol] 1.08 mg/dL High 0.50-0.90 [facility] Comment on above: Performed By: #### B UNCRT, K, NA, GLU, CL, CDP #### [facility] [address] [place] [address] Parking Garage Manager: Emily George MD #### GLYHGB #### [facility] [address] [place] [address] Parking Garage Manager: Placido Pierce MD GFR/1.73 sq M.predicted among non-blacks MDRD (S/P/Bld) [Vol rate/Area] mL/min/{1.73_m2} Normal >60 [facility] Comment on above: Result Comment: These results are not intended for use in patients <18 years of age. eGFR results are calculated without a race factor using the 2020 CKD-EPI equation. Careful clinical correlation is recommended, particularly when comparing to results calculated using previous equations. The CKD-EPI equation is less accurate in patients with extremes of muscle mass, extra-renal metabolism of creatine, excessive creatine ingestion, or following therapy that affects renal tubular secretion. Performed By: #### B UNCRT, K, NA, GLU, CL, CDP #### [facility] [address] [place], [place] [phone] Parking Garage Manager: Emily George MD #### GLYHGB #### [facility] [address] [place], [place] [phone] Parking Garage Manager: Placido Pierce MD Urea nitrogen [Mass/Vol] 21 mg/dL High 6-20 [facility] Comment on above: Performed By: #### B UNCRT, K, NA, GLU, CL, CDP #### [facility] [address] [place] [address] Parking Garage Manager: Emily George MD #### GLYHGB #### [facility] [address] [place], [place] [phone] Parking Garage Manager: Placido Pierce MD CBC with Auto Differentialon 02-05-2023 Absolute Eos # 0.10 [place] [facility] Absolute Lymph [facility] 1.70 [facility] Absolute [place] # 0.50 [facility] RS [facility] Basophils (Bld) [#/Vol] 0.00 10*3/uL [facility] Basophils/100 WBC (Bld) 1 % 0 - 2 % [facility] Differential Type YES [facility] Eosinophils/100 WBC (Bld) 1 % 0 - 5 % [facility] Hematocrit (Bld) [Volume fraction] 36.2 % 36 - 46 % [facility] Hemoglobin (Bld) [Mass/Vol] 12.2 g/dL 12.0 - 16.0 g/dL [facility] Interpretation and review of laboratory results Abnormal [facility] Lymphocytes/100 WBC (Bld) 23 % 15 - 40 % [facility] MCH (RBC) [Entitic mass] 28.7 pg 26 - 34 pg [facility] MCHC (RBC) [Mass/Vol] 33.7 g/dL 31 - 37 g/dL B [facility] MCV (RBC) [Entitic vol] 85.3 fL 80 - 100 fL [facility] Monocytes/100 WBC (Bld) 7 % 4 - 8 % [facility] Platelet distribution width (Bld) [Ratio] 18.1 % High 12.1 - 15.2 % [facility] Platelets (Bld) [#/Vol] 150 10*3/uL [facility] RBC (Bld) [#/Vol] 4.25 10*6/uL 4.0 - 5.2 m/uL [facility] Segmented neutrophils/100 WBC (Bld) 68 % 47 - 75 % [facility] Segs Absolute 5.30 [facility] WBC (Bld) [#/Vol] 7.6 10*3/uL [facility] SE [facility] CBC with Diffon 02-05-2023 Abs. Basophil 0.00 k/uL Normal 0.0-0.2 [facility] Comment on above: Performed By: #### B UNCRT, K, NA, GLU, CL, CDP #### [facility] [address] [place] [address] Parking Garage Manager: Emily George MD #### GLYHGB #### [facility] [employer] [address] [place] [id number] Parking Garage Manager: Placido Pierce MD Abs.Neutrophil (Seg) 5.30 k/uL Normal 2.5-7.0 [facility] Comment on above: Performed By: #### B UNCRT, K, NA, GLU, CL, CDP #### [facility] [address] [place] [address] Parking Garage Manager: Emily George MD #### GLYHGB #### [facility] [employer] [address] [place] [address] Parking Garage Manager: Placido Pierce MD Auto Diff Performed YES Normal [facility] Comment on above: Performed By: #### B UNCRT, K, NA, GLU, CL, CDP #### [facility] [address] [place], [place] [phone] Parking Garage Manager: Emily George MD #### GLYHGB #### [address] [phone] Parking Garage Manager: Placido Pierce MD Basophils/100 WBC (Bld) 1 % Normal 0-2 [facility] Comment on above: Performed By: #### B UNCRT, K, NA, GLU, CL, CDP #### [facility] [address] [place], [place] [phone] Parking Garage Manager: Emily George MD #### GLYHGB #### [address] [phone] Parking Garage Manager: Placido Pierce MD Eosinophils (Bld) [#/Vol] 0.10 10*3/uL Normal 0.0-0.4 [facility] Comment on above: Performed By: #### B UNCRT, K, NA, GLU, CL, CDP #### [facility] [address] [place], [place] [phone] Parking Garage Manager: Emily George MD #### GLYHGB #### [address] [address] Parking Garage Manager: Placido Pierce MD Eosinophils/100 WBC (Bld) 1 % Normal 0-5 [facility] Comment on above: Performed By: #### B UNCRT, K, NA, GLU, CL, CDP #### [facility] [address] [place], [place] [phone] Parking Garage Manager: Emily George MD #### GLYHGB #### [address] [phone] Parking Garage Manager: Placido Pierce MD Erythrocyte distribution width (RBC) [Ratio] 18.1 % High 12.1-15.2 [facility] Comment on above: Performed By: #### B UNCRT, K, NA, GLU, CL, CDP #### [facility] [address] [place], [place] [phone] Parking Garage Manager: Emily George MD #### GLYHGB #### [address] [phone] Parking Garage Manager: Placido Pierce MD Hematocrit (Bld) [Volume fraction] 36.2 % Normal 36-46 [facility] Comment on above: Performed By: #### B UNCRT, K, NA, GLU, CL, CDP #### [facility] [address] [place] [phone] Parking Garage Manager: Emliy George MD #### GLYHGB #### [address] [phone] Parking Garage Manager: Placido Pierce MD Hemoglobin (Bld) [Mass/Vol] 12.2 g/dL Normal 12.0-16.0 [facility] Comment on above: Performed By: #### B UNCRT, K, NA, GLU, CL, CDP #### [facility] [address] [place] [phone] Parking Garage Manager: Emily George MD #### GLYHGB #### [address] [phone] Parking Garage Manager: Placido Pierce MD Lymphocytes (Bld) [#/Vol] 1.70 10*3/uL Normal 1.0-4.8 [facility] Comment on above: Performed By: #### B UNCRT, K, NA, GLU, CL, CDP #### [facility] [address] [place] [phone] Parking Garage Manager: Emily George MD #### GLYHGB #### [place] [id number] [place], [place] [phone] Parking Garage Manager: Placido Pierce MD Lymphocytes/100 WBC (Bld) 23 % Normal 15-40 [facility] Comment on above: Performed By: #### B UNCRT, K, NA, GLU, CL, CDP #### [facility] [address] [place] [address] ( Parking Garage Manager: Emily George MD #### GLYHGB #### [place] [phone] Parking Garage Manager: Placido Pierce MD MCH (RBC) [Entitic mass] 28.7 pg Normal 26-34 [facility] Comment on above: Performed By: #### B UNCRT, K, NA, GLU, CL, CDP #### [facility] [address] [place] [phone] ( Parking Garage Manager: Emily George MD #### GLYHGB #### [place] [phone] Parking Garage Manager: Placido Pierce MD MCHC (RBC) [Mass/Vol] 33.7 g/dL Normal 31-37 [facility] Comment on above: Performed By: #### B UNCRT, K, NA, GLU, CL, CDP #### [facility] [address] [place] [address] ( Parking Garage Manager: Emily George MD #### GLYHGB #### [place] [phone] Parking Garage Manager: Placido Pierce MD MCV (RBC) [Entitic vol] 85.3 fL Normal 80-100 [facility] Comment on above: Performed By: #### B UNCRT, K, NA, GLU, CL, CDP #### [facility] [address] [place] [address] ( Parking Garage Manager: Emily George MD #### GLYHGB #### [place] [phone] Parking Garage Manager: Placido Pierce MD Monocytes (Bld) [#/Vol] 0.50 10*3/uL Normal 0.0-1.0 [facility] Comment on above: Performed By: #### B UNCRT, K, NA, GLU, CL, CDP #### [facility] [address] [place] [address] ( Parking Garage Manager: Emily George MD #### GLYHGB #### [place] [phone] Parking Garage Manager: Placido Pierce MD Monocytes/100 WBC (Bld) 7 % Normal 4-8 [facility] Comment on above: Performed By: #### B UNCRT, K, NA, GLU, CL, CDP #### [facility] [address] [place] [phone] ( Parking Garage Manager: Emily George MD #### GLYHGB #### [place] [address] Parking Garage Manager: Placido Pierce MD Neutrophil (Seg) 68 % Normal 47-75 [facility] Comment on above: Performed By: #### B UNCRT, K, NA, GLU, CL, CDP #### [facility] [address] [place] [address] Parking Garage Manager: Emily George MD #### GLYHGB #### [place] [address] Parking Garage Manager: Placido Pierce MD Platelets (Bld) [#/Vol] 150 10*3/uL Normal 140-450 [facility] Comment on above: Performed By: #### B UNCRT, K, NA, GLU, CL, CDP #### [facility] [address] [place], [place] [phone] Parking Garage Manager: Emily George MD #### GLYHGB #### [address] [phone] Parking Garage Manager: Placido Pierce MD RBC (Bld) [#/Vol] 4.25 10*6/uL Normal 4.0-5.2 [facility] Comment on above: Performed By: #### B UNCRT, K, NA, GLU, CL, CDP #### [facility] [address] [place], [place] [phone] Parking Garage Manager: Emily George MD #### GLYHGB #### [address] [address] Parking Garage Manager: Placido Pierce MD WBC (Bld) [#/Vol] 7.6 10*3/uL Normal 3.5-11.0 [facility] Comment on above: Performed By: #### B UNCRT, K, NA, GLU, CL, CDP #### [facility] [address] [place], [place] [phone] Parking Garage Manager: Emily George MD #### GLYHGB #### [address] [address] Parking Garage Manager: Placido Pierce MD Chlorideon 02-05-2023 Chloride [Moles/Vol] 99 mmol/L Normal 98-107 [facility] Comment on above: Performed By: #### B UNCRT, K, NA, GLU, CL, CDP #### [facility] [address] [place], [place] [phone] Parking Garage Manager: Emily George MD #### GLYHGB #### [address] [address] Parking Garage Manager: Placido Pierce MD Chloride [Moles/Vol] 99 mmol/L 98 - 10 7 mmol/L [facility] Glucoseon 02-05-2023 Glucose [Mass/Vol] 107 mg/dL High 70-99 [facility] Comment on above: Performed By: #### B UNCRT, K, NA, GLU, CL, CDP #### [facility] [address] [place] [address] Parking Garage Manager: Emily George MD #### GLYHGB #### [facility] [employer] [address] [place] [address] Parking Garage Manager: Placido Pierce MD Glucose, Randomon 02-05-2023 Glucose [Mass/Vol] 107 mg/dL High 70 - 99 mg/dL [facility] K (Potassium)on 02-05-2023 Potassium [Moles/Vol] 4.6 mmol/L Normal 3.7-5.3 [facility] Comment on above: Performed By: #### B UNCRT, K, NA, GLU, CL, CDP #### [facility] [address] [place] [address] Parking Garage Manager: Emily George MD #### GLYHGB #### [facility] [employer] [facility] [place] [address] Parking Garage Manager: Placido Pierce MD NA (Sodium)on 02-05-2023 Sodium [Moles/Vol] 134 mmol/L Low 135-144 [facility] Comment on above: Performed By: #### B UNCRT, K, NA, GLU, CL, CDP #### [facility] [address] [place] [address] Parking Garage Manager: Emily George MD #### GLYHGB #### [facility] [employer] [facility] [place] [address] Parking Garage Manager: Placido Pierce MD No Panel Informationon 02-05 Interpretation and review of laboratory results Abnormal [facility] Potassiumon 02-05-2023 Potassium [Moles/Vol] 4.6 mmol/L 3.7 - 5.3 mmol/L [facility] Sodiumon 02-05-2023 Sodium [Moles/Vol] 134 mmol/L Low 135 - 144 mmol/L [facility] [employer] Trichomonas/Wet Prepon 02-05 Trichomonas/Wet Prep Specimen Descriptio n .VAGINA Direct Exam FEW WBC MODERATE EPITHELIAL CELLS MODERATE BACTERIA NO TRICHOMONAS SEEN NO FUNGAL ELEMENTS SEEN NO CLUECELL SEEN Report Status FINAL 02/05/2023 Normal [facility] Comment on above: Performed By: #### B UNCRT, K, NA, GLU, CL, CDP #### [facility] [address] [place] [address] Parking Garage Manager: Emily George MD #### GLYHGB #### [facility] [employer] [address] [place], [place] [phone] Parking Garage Manager: Placido Pierce MD Wet Prep, Genitalon 02-06-20 Interpretation and review of laboratory results Abnormal [facility] [employer] Microorganism or agent identified Nom (Unsp spec) FEW WBC Abnormal [facility] [employer] Microorganism or agent identified Nom (Unsp spec) MODERATE EPITHELIAL CELLS Abnormal [facility] [employer] Microorganism or agent identified Nom (Unsp spec) MODERATE BACTERIA Abnormal [facility] [employer] Microorganism or agent identified Nom (Unsp spec) NO TRICHOMONAS SEEN [facility] [employer] Microorganism or agent identified Nom (Unsp spec) NO FUNGAL ELEMENTS SEEN [facility] [employer] Microorganism or agent identified Nom (Unsp spec) NO CLUECELL SEEN [facility] [employer] Specimen Description .VAGINA [facility] [employer] CT FOOT LT WO CONon 02-05-[address] FOOT LT WO CON EXAMINATION: CT FOOT LT WO CON HISTORY: Charcot arthropathy of joint of ankle COMPARISON: No relevant comparison available. TECHNIQUE: Multi-planar CT images were created without IV contrast. Dose reduction techniques were achieved by using automated exposure control and/or adjustment of mA and/or kV according to patient size and/or use of iterative reconstruction technique. Multiplanar reformats performed on the local workstation FINDINGS: BONES: Severe lytic destructive changes of the midfoot involving the navicular cuboid and tarsal bones extending into the base of the metatarsals. There is lateral subluxation of the fifth metatarsal relation to the cuboid. SOFT TISSUES: Extensive soft tissue swelling centered at the midfoot EFFUSION: None visible. OTHER: Negative. IMPRESSION: Lytic destructive changes of the midfoot extending into the base of the metatarsals of unknown etiology. 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 Electronically authenticated by: EMILY ELY Date: 2023-02-04 20:14 Normal [facility] XR ANKLE LEFT 3+ VIEWS (ABDOULAYE GALVAN)on 01-06-2023 XR ANKLE LEFT 3+ VIEWS (STANDARD) EXAMINATION: XR ANKLE LEFT 3+ VIEWS (STANDARD) 01/06/2023 4:49 pm HISTORY: ORDERING SYSTEM PROVIDED HISTORY: Pain, injury, TECHNOLOGIST PROVIDED HISTORY: Injury/Trauma Reason for exam: left lateral ankle pain Cancer History: Surgery, RadiationHistory: Encounter Type: Initial Mechanism of injury: rolled ankle 4 days ago ORDERING SYSTEM PROVIDED DIAGNOSIS CODES: IMPRESSION: FINDINGS/ There is collapse of the midfoot which should be better evaluated with dedicated foot radiographs. No ankle fracture identified. 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 [facility] RIS CONSOLIDATED EXAM: MRI FOOT LEFT W WO CONTRAST 10 mL MultiHance. HISTORY: The patient is a 42-year-old female. COMPARISON: Radiographs from 11:17 AM. TECHNIQUE: Sagittal T1, STIR; long axis T1, STIR, postcontrast T1; short axis T1, T2, postcontrast T1. FINDINGS: The metallic foreign body between the second and third metatarsals seen on the accompanying radiographs causes considerable susceptibility artifacts obscuring visualization of the second and third metatarsals. There is fragmentation of the navicular bone as well as of all 3 cuneiforms, particularly the medial cuneiform. This is perhaps better demonstrated on the radiographs and on the current MRI scan. There is mild edema within all of the bones of the midfoot, and the appearance is more that of Charcot neuropathy rather than of osteomyelitis. No abnormal bone marrow signal or edema is seen within the distal tibia, distal fibula, all within the talus or calcaneus indicate the presence of a fracture, stress fracture, bone contusion, or osteomyelitis. No nonenhancing abscess pockets are identified. [facility] Mike Montgomery M D - 06/25/2022 EXAM: MRI FOOT LEFT W WO CONTRAST 10 mL MultiHance. HISTORY: The patient is a 42-year-old female. COMPARISON: Radiographs from 11:17 AM. TECHNIQUE: Sagittal T1, STIR; long axis T1, STIR, postcontrast T1; short axis T1, T2, postcontrast T1. FINDINGS: The metallic foreign body between the second and third metatarsals seen on the accompanying radiographs causes considerable susceptibility artifacts obscuring visualization of the second and third metatarsals. There is fragmentation of the navicular bone as well as of all 3 cuneiforms, particularly the medial cuneiform. This is perhaps better demonstrated on the radiographs and on the current MRI scan. There is mild edema within all of the bones of the midfoot, and the appearance is more that of Charcot neuropathy rather than of osteomyelitis. No abnormal bone marrow signal or edema is seen within the distal tibia, distal fibula, all within the talus or calcaneus indicate the presence of a fracture, stress fracture, bone contusion, or osteomyelitis. No nonenhancing abscess pockets are identified. IMPRESSION: Combined with the accompanying radiographs, 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 [facility] Work Phone: Radiology Study observation (narrative) [employer] Phone: MRI FOOT LEFT W WO CONTRASTO rdered By: Mike Villavicencio on 06-25-2022 [employer] Phone: XR FOOT LEFT (2 VIEWS)on There is a linear metallic foreign body projecting between the second and third metatarsals. There is also a metallic foreign body within the lower leg. There is fragmentation of the navicular as well as of all 3 cuneiforms. The appearance is consistent with the patient's history of neuropathy. [facility] CONSOLIDATED EXAM: XR FOOT LEFT ( 2 VIEWS) HISTORY: M79.5. The patient is a 42-year-old female. Evaluate for foreign body. COMPARISON: None. [facility] CONSOLIDATED Mike Villavicencio M D - 06/25/2022 EXAM: XR FOOT LEFT (2 VIEWS) HISTORY: M79.5. The patient is a 42-year-old female. Evaluate for foreign body. COMPARISON: None. IMPRESSION: There is a linear metallic foreign body projecting between the second and third metatarsals. There is also a metallic foreign body within the lower leg. There is fragmentation of the navicular as well as of all 3 cuneiforms. The appearance is consistent with the patient's history of neuropathy. [employer] Phone: Radiology Study observation (narrative) [employer] Phone: XR FOOT LEFT (2 VIEWS)Ordere d By: Mike Villavicencio on 06-25-2022 [employer] Phone: US HEAD NECK SOFT TISSUE THY ROIDon 05-27-2022 Likely lipoma base of the neck on the right. Clinical follow up recommended. Subcentimeter highly suspicious nodule in the right thyroid lobe 7 mm in greatest dimension. This meets criteria for annual follow up for 5 years. It does not meet criteria for FNA. [facility] CONSOLIDATED EXAM: US HEAD NECK SOFT TISSUE THYROID HISTORY: 41-year-old female palpable lump inferior right neck, 3 weeks. COMPARISON: None. TECHNIQUE: Soft tissue neck/thyroid ultrasound. FINDINGS: Right lobe thyroid: 5.1 x 1.7 x 1.7 cm. A small hypoechoic, solid, nodule in the mid right thyroid lobe measures 7 x 7 x 6 mm with a small amount of macroscopic calcification. Meets criteria for yearly follow up for 5 years. Isthmus: 3 mm. Left lobe: 5.3 x 1.5 x 1.5 cm. Inferior left thyroid lobe nodule, isoechoic with no echogenic foci, wider than tall with smooth margins, solid 1.1 x 1.0 x 0.7 cm. No follow up needed. Scanning over the palpable area of concern shows a 2.2 x 1.6 x 0.9 cm wider than tall smoothly marginated solid nodule, isoechoic to adjacent subcutaneous fat without shadowing, suggestive of a lipoma. [facility] RIS CONSOLIDATED Micky Lauren Jr., MD - 05/27/2022 EXAM: US HEAD NECK SOFT TISSUE THYROID HISTORY: 41-year-old female palpable lump inferior right neck, 3 weeks. COMPARISON: None. TECHNIQUE: Soft tissue neck/thyroid ultrasound. FINDINGS: Right lobe thyroid: 5.1 x 1.7 x 1.7 cm. A small hypoechoic, solid, nodule in the mid right thyroid lobe measures 7 x 7 x 6 mm with a small amount of macroscopic calcification. Meets criteria for yearly follow up for 5 years. Isthmus: 3 mm. Left lobe: 5.3 x 1.5 x 1.5 cm. Inferior left thyroid lobe nodule, isoechoic with no echogenic foci, wider than tall with smooth margins, solid 1.1 x 1.0 x 0.7 cm. No follow up needed. Scanning over the palpable area of concern shows a 2.2 x 1.6 x 0.9 cm wider than tall smoothly marginated solid nodule, isoechoic to adjacent subcutaneous fat without shadowing, suggestive of a lipoma. IMPRESSION: Likely lipoma base of the neck on the right. Clinical follow up recommended. Subcentimeter highly suspicious nodule in the right thyroid lobe 7 mm in greatest dimension. This meets criteria for annual follow up for 5 years. It does not meet criteria for FNA. [employer] Phone: Radiology Study observation (narrative) [facility] [employer] Work Phone: US HEAD NECK SOFT TISSUE THY ROIDOrdered By: Micky Lauren on 05-27-2022 [facility] [employer] Work Phone: Rejection Notificationon Reason see below [facility] Comment on above: Result Comment: Unab le to perform testing; no specimen received. To perform testing the specimen will need to be recollected. No spec Performed By: #### R EJEC #### [facility] [address] [facility] [address] Rejected Test CXURN Normal [facility] Comment on above: Performed By: #### R EJEC #### [facility] [address] [facility] [address] LDL Cholesterol, Directon Cholesterol in LDL [Mass/Vol] 84 mg/dL <100 [facility] CBC with Auto Differentialon 04-12-2022 Absolute E[facility] # 0.[facility] Absolute Lymph # 1.40 [facility] Absolute [place] # 0.30 [facility] RS [facility] Basophils (Bld) [#/Vol] 0.00 10*3/uL [facility] Basophils/100 WBC (Bld) 1 % 0 - 2 % [facility] Differential Type YES [facility] Eosinophils/100 WBC (Bld) 1 % 0 - 5 % [facility] Hematocrit (Bld) [Volume fraction] 35.7 % Low 36 - 46 % [facility] Hemoglobin (Bld) [Mass/Vol] 12.0 g/dL 12.0 - 16.0 g/dL [facility] Interpretation and review of laboratory results Abnormal [facility] Lymphocytes/100 WBC (Bld) 25 % 15 - 40 % [facility] MCH (RBC) [Entitic mass] 28.0 pg 26 - 34 pg [facility] MCHC (RBC) [Mass/Vol] 33.7 g/dL 31 - 37 g/dL [facility] MCV (RBC) [Entitic vol] 83.3 fL 80 - 100 fL [facility] Monocytes/100 WBC (Bld) 5 % 4 - 8 % [facility] Platelet distribution width (Bld) [Ratio] 16.4 % High 12.1 - 15.2 % [facility] Platelets (Bld) [#/Vol] 168 10*3/uL [facility] RBC (Bld) [#/Vol] 4.29 10*6/uL 4.0 - 5.2 m/uL [facility] Segmented neutrophils/100 WBC (Bld) 68 % 47 - 75 % [facility] Segs Absolute 3.90 [facility] WBC (Bld) [#/Vol] 5.7 10*3/uL [facility] Comprehensive Metabolic Pane lyn 04-12-2022 Albumin [Mass/Vol] 4.2 g/dL 3.5 - 5.2 g/dL [facility] ALP (Bld) [Catalytic activity/Vol] 88 U/L 35 - 104 U/L [facility] ALT [Catalytic activity/Vol] 29 U/L 5 - 33 U/L [facility] Anion gap [Moles/Vol] 11 mmol/L 9 - 17 mmol/L [facility] AST [Catalytic activity/Vol] 27 U/L <32 [facility] Bilirubin [Mass/Vol] 0.65 mg/dL 0.30 - 1.20 mg/dL [facility] Calcium [Mass/Vol] 9.1 mg/dL 8.6 - 10. 4 mg/dL [facility] Chloride [Moles/Vol] 101 mmol/L 98 - 10 7 mmol/L [facility] CO2 [Moles/Vol] 28 mmol/L 20 - 31 mmol/L [facility] Creatinine [Mass/Vol] 1.04 mg/dL High 0.50 - 0.90 mg/dL [facility] Free PSA/Total PSA [Mass fraction] 6.8 g/dL 6.4 - 8.3 g/dL [facility] GFR >60 >60 mL/min [facility] GFR Non- 58 mL/min Low >60 [facility] GFR/1.73 sq M.predicted MDRD (S/P/Bld) [Vol rate/Area] [facility] Comment on above: Average GFR for 40-4 9 years old: 99 mL/min/1.73sq m Chronic Kidney Disease: <60 mL/min/1.73sq m Kidney failure: <15 mL/min/1.73sq m eGFR calculated using average adult body mass. Additional eGFR calculator available at: http://www.GHash.IO/multiple_crcl_2012.htm Glucose [Mass/Vol] 103 mg/dL High 70 - 99 mg/dL [facility] Interpretation and review of laboratory results Abnormal [facility] Potassium [Moles/Vol] 3.9 mmol/L 3.7 - 5.3 mmol/L [facility] Sodium [Moles/Vol] 140 mmol/L 135 - 144 mmol/L [facility] Urea nitrogen (BldV) [Mass/Vol] 13 mg/dL 6 - 20 mg/dL [facility] Urea nitrogen/Creatinine (Bld) [Mass ratio] 13 [facility] HIV Screenon 04-12-2022 HIV Ag/Ab Non-Reactive NONREACTIVE [facility] [facility] Comment on above: No laboratory eviden ce of HIV infection. If acute HIV infection is suspected, consider testing for HIV-1 RNA. [facility] Lipid Panelon 04-12-2022 Cholesterol [Mass/Vol] 184 mg/dL <200 [facility] Comment on above: Cholesterol Guidelines: <200 Desirable 200-240 Borderline >240 Undesirable Cholesterol in HDL [Mass/Vol] 30 mg/dL Low >40 [facility] Comment on above: HDL Guidelines: <40 Undesirable 40-59 Borderline >59 Desirable Cholesterol.total/Cho lesterol in HDL [Mass ratio] 6.1 {ratio} High <5 [facility] Interpretation and review of laboratory results Abnormal [facility] LDL Cholesterol 0 - 130 mg/dL [facility] Comment on above: Calculation not jacqueline d for Triglyceride value greater than 400 mg/dL. Direct LDL reflexed LDL Guidelines: <100 Desirable 100-129 Near to/above Desirable 130-159 Borderline >159 Undesirable Direct (measured) LDL and calculated LDL are not interchangeable tests. Triglyceride [Mass/Vol] 460 mg/dL High <150 Appear Comment on above: Triglyceride Guidelines: <150 Desirable 150-199 Borderline 200-499 High >499 Very high Based on AHA Guidelines for fasting triglyceride, July 2012. Appear No Panel Informationon 04-12 Appear TSH with Reflexon 04-12-2022 TSH Qn 0.99 m[IU]/L Appear XR pre/post mri xrayon 02-04 XR pre/post mri xray [facility] Main [place] [address] [place] [address] MRI Report Signed Patient: Celina Gaspar MR#: [id number] 90 : 1980 Acct:[id number] Age/Sex: 41 / F ADM Date: 02/04/22 Loc: [facility] Room: Type: [facility] Attending Dr: Tiffanie Casas MD Ordering Provider: Tiffanie Casas MD Date of Service: 02/04/22 MR/MR lumbar spine wo con: M54.16, M79.10, M79.609, R20.9 ([id number]) XR/XR pre/post mri xray: M54.16, M79.10, M79.609, R20.9 Copies to: Tiffanie Casas MD MR lumbar spine wo con, XR pre/post mri xray 02/04/2022 8:49 AM SIGNS AND SYMPTOMS: Chronic low back pain with bilateral lower extremity weakness PROTOCOL: Multiplanar multisequence MR images of the lumbar spine were obtained without IV contrast. Frontal and lateral radiograph the lumbar spine were obtained. COMPARISON: 04/06/2017 FINDINGS: Radiographs of the lumbar spine: The bones are in anatomic alignment. There is preservation of vertebral body heights and intervertebral discs. There is no fracture or subluxation. Surgical clips are present in the right upper quadrant consistent with prior cholecystectomy. MRI lumbar spine: The bones of the lumbar spine are in anatomic alignment. There is preservation of vertebral body heights and intervertebral disc spaces. The marrow signal is within normal limits. The conus terminates at the T12-L1 intervertebral disc level. No epidural or paraspinous fluid collection is appreciated. At T12-L1: There is a normal disc, central canal, and neural foramen. At L1-L2: There is a normal disc, central canal, and neural foramen. At L2-L3: There is a normal disc, central canal, and neural foramen. At L3-L4: There is a normal disc, central canal, and neural foramen. At L4-L5: There is a normal disc, central canal, and neural foramen. There is a mild right-sided facet effusion. At L5-S1: There is a normal disc, central canal, and neural foramen. MR/MR lumbar spine wo con IMPRESSION: Mild facet degenerative changes are noted with a right-sided facet effusion at L4-5. This is similar to the prior exam. No significant spinal canal or neural foraminal narrowing. Impression dictated by: Nash Doyle M.D.02/04/2022 11:43 AM Dictation Location: [place] [address] Transcribed By: [facility] 02/04/22 1143 Dictated By: Nash Doyle II, MD 02/04/22 1136 Signed By: 02/04/22 1143 [facility] Urinalysis with MicroscopicO rdered By: Lita Weeks on 08-01-2021 - [employer] Work Phone: Amorphous, UA NOT REPORTED None [employer] Work Phone: Bacteria, UA RARE Abnormal None [employer] Work Phone: Bilirubin Urine Negative NEGATIVE [employer] Work Phone: Casts UA NOT REPORTED /LPF [employer] Work Phone: Color, UA Yellow Yellow [employer] Work Phone: Crystals, UA NOT REPORTED None /HPF [employer] [facility] Work Phone: Epithelial Cells UA 2 TO 5 /HPF [employer] Work Phone: Glucose, Ur Negative NEGATIVE [employer] Work Phone: Interpretation and review of laboratory results Abnormal [facility] Work Phone: Ketones Ql (U) Negative NEGATIVE [facility] Work Phone: Leukocyte esterase Test strip Ql (U) Negative NEGATIVE [facility] [employer] Work Phone: Mucus, UA NOT REPORTED None [facility] Work Phone: Nitrite, Urine Negative NEGATIVE [facility] Work Phone: Other Observations UA NOT REPORTED NOT REQ. M [facility] [employer] Work Phone: pH, UA 6.0 [facility] [employer] Work Phone: Protein, UA Negative NEGATIVE [facility] [employer] Work Phone: RBC, UA NOT REPORTED [facility] [employer] Phone: Renal Epithelial, UA NOT REPORTED 0 /HPF [facility] [employer] Work Phone: Specific [place], UA 1.[address] [facility] [employer] Work Phone: Trichomonas, UA NOT REPORTED None [facility] CenterCapt[facility] Media H ealt Work Phone: Turbidity UA Clear Clear [facility] Work Phone: Urinalysis Comments [facility] Work Phone: Urine Hgb Negative NEGATIVE [facility] CenterDailyDigital Phone: Urobilinogen, Urine Normal Normal [facility] [employer] Phone: WBC, UA NOT REPORTED 0 /HPF [facility] Work Phone: Yeast, UA NOT REPORTED None [facility] CenterDaily[facility] Phone: [facility] Work Phone: Urinalysis with MicroscopicO rdered By: Lita Weeks on 07-11-2021 - [facility] Work Phone: Amorphous, UA NOT REPORTED None [employer] [facility] Work Phone: Bacteria, UA 3+ Abnormal None [facility] Work Phone: Bilirubin Urine Negative NEGATIVE [facility] Work Phone: Casts UA NOT REPORTED /LPF [facility] Work Phone: Color, UA Yellow Yellow [facility] Work Phone: Crystals, UA NOT REPORTED None /HPF [facility] Work Phone: Epithelial Cells UA 2 TO 5 /HPF [facility] Work Phone: Glucose, Ur Negative NEGATIVE [facility] [employer] Work Phone: Interpretation and review of laboratory results Abnormal [facility] Work Phone: Ketones Ql (U) Negative NEGATIVE [facility] Work Phone: Leukocyte esterase Test strip Ql (U) 2+ Abnormal NEGATIVE [facility] [employer] Work Phone: Mucus, UA NOT REPORTED None [facility] [employer] Work Phone: Nitrite, Urine Positive Abnormal NEGATIVE [facility] Work Phone: Other Observations UA NOT REPORTED NOT REQ. M [facility] [employer] Work Phone: pH, UA 6.0 [facility] [employer] Work Phone: Protein, UA Negative NEGATIVE [facility] [employer] Work Phone: RBC, UA NOT REPORTED [facility] Work Phone: Renal Epithelial, UA NOT REPORTED 0 /HPF [facility] Work Phone: Specific [place], UA 1.025 [facility] Work Phone: Trichomonas, UA NOT REPORTED None [facility] H ealth Work Phone: Turbidity UA Hazy Abnormal Clear [facility] [employer] Work Phone: Urinalysis Comments [facility] Work Phone: Urine Hgb Negative NEGATIVE [facility] Work Phone: Urobilinogen, Urine Normal Normal [employer] Phone: WBC, UA 20 TO 50 0 /HPF [employer] Phone: Yeast, UA NOT REPORTED None [employer] Phone: [employer] Phone: AlbuminOrdered By: Gregory stevens on 05-20-2021 Albumin [Mass/Vol] 4.2 g/dL 3.5 - 5.2 g/dL [employer] Phone: BUN & CreatinineOrdered By: Gregory Forbes on 05-20-2021 Creatinine [Mass/Vol] 1.18 mg/dL High 0.50 - 0.90 mg/dL [employer] Phone: GFR >60 >60 mL/min [employer] Phone: GFR Non- 50 mL/min Low >60 [employer] Phone: GFR/1.73 sq M.predicted MDRD (S/P/Bld) [Vol rate/Area] [employer] Phone: Comment on above: Average GFR for 40-4 9 years old: 99 mL/min/1.73sq m Chronic Kidney Disease: <60 mL/min/1.73sq m Kidney failure: <15 mL/min/1.73sq m eGFR calculated using average adult body mass. Additional eGFR calculator available at: http://www.ProPlan.Mangia/multiple_crcl_2012.htm GFR/1.73 sq M.predicted MDRD (S/P/Bld) [Vol rate/Area] NOT REPORTED [employer] Phone: Interpretation and review of laboratory results Abnormal [employer] Phone: Urea nitrogen (BldV) [Mass/Vol] 19 mg/dL 6 - 20 mg/dL [employer] Phone: CalciumOrdered By: Gregory stevens on 05-20-2021 Calcium [Mass/Vol] 9.2 mg/dL 8.6 - 10. 4 mg/dL [facility] CenterDailyDigital Phone: Electrolyte PanelOrdered By: Gregory Forbes on 05-20-2021 Anion gap [Moles/Vol] 10 mmol/L 9 - 17 mmol/L [facility] CenterDaily[facility] Phone: Chloride [Moles/Vol] 103 mmol/L 98 - 10 7 mmol/L [facility] Work Phone: CO2 [Moles/Vol] 25 mmol/L 20 - 31 mmol/L [facility] CenterDaily[facility] Phone: Potassium [Moles/Vol] 4.2 mmol/L 3.7 - 5.3 mmol/L [facility] CenterDailyDigital Phone: Sodium [Moles/Vol] 138 mmol/L 135 - 144 mmol/L [facility] CenterDaily[facility] Phone: MagnesiumOrdered By: Gregory high on 05-20-2021 Magnesium [Mass/Vol] 2.2 mg/dL 1.6 - 2 .6 mg/dL [facility] CenterDailyDigital Phone: No Panel InformationOrdered By: Gregory Forbes on 05-20-[address] [facility] CenterDaily[facility] Phone: PhosphorusOrdered By: Gregory Forbes on 05-20-2021 Phosphate [Mass/Vol] 3.7 mg/dL 2.6 - 4 .5 mg/dL [facility] CenterDaily[facility] Phone: UrinalysisOrdered By: Gregory Forbes on 05-20-2021 Bilirubin Urine Negative NEGATIVE [facility] CenterCaptive Media [facility] Work Phone: Color, UA YELLOW YELLOW [facility] Center[facility] Work Phone: Glucose, Ur Negative NEGATIVE [facility] CenterDailyDigital Phone: Interpretation and review of laboratory results Abnormal [facility] Work Phone: Ketones Ql (U) Negative NEGATIVE [employer] Work Phone: Leukocyte esterase Test strip Ql (U) Negative NEGATIVE [employer] Phone: Nitrite, Urine Negative NEGATIVE [employer] Work Phone: pH, UA 5.0 [employer] Phone: Protein, UA TRACE Abnormal NEGATIVE [employer] Phone: Specific [place], UA 1.020 [facility] Work Phone: Turbidity UA CLEAR CLEAR [employer] Work Phone: Urinalysis Comments [employer] Phone: Urine Hgb Negative NEGATIVE [employer] Phone: Urobilinogen, Urine Normal Normal [employer] Phone: [employer] Phone: COVID-19Ordered By: Pattie smith on 01-22-2021 SARS-CoV-2 (COVID-19) RNA SHARMIN+probe Ql (Unsp spec) [employer] Phone: SARS-CoV-2 (COVID-19) RNA SHARMIN+probe Ql (Unsp spec) Not detected Not Detected [employer] Phone: Comment on above: The specimen is NEGATIVE for SARS-CoV-2, the novel coronavirus associated with COVID-19. A negative result does not rule out COVID-19. Twin SARS-CoV-2 for use on the Twin [employer] is a real-time RT-PCR test intended for the qualitative detection of nucleic acids from SARS-CoV-2 in clinician-collected nasal, nasopharyngeal, and oropharyngeal swab specimens from individuals who meet COVID-19 clinical and/or epidemiological criteria. Twin SARS-CoV-2 is for use only under Emergency Use Authorization (EUA) in laboratories certified under Clinical Laboratory Improvement Amendments of 1988 (CLIA), 42 U.S.C. 263a, that meet requirements to perform high or moderate complexity tests. An individual without symptoms of COVID-19 and who is not shedding SARS-CoV-2 virus would expect to have a negative (not detected) result in this assay. Fact sheet for Healthcare Providers: https://www.[employer].gov/media/161623/download Fact sheet for Patients: https://www.[employer].gov/media/919717/download METHODOLOGY: RT-PCR Source .THROAT [facility] [employer] Phone: COVID-19, PCRon 11-15-2020 SARS-CoV-2, Rapid Not Detected Not Detected [facility] [employer] Phone: Comment on above: Rapid NAAT: The specimen is NEGATIVE for SARS-CoV-2, the novel coronavirus associated with COVID-19. The Somewhere NOW COVID-19 assay is designed to detect the virus that causes COVID-19 in patients with signs and symptoms of infection who are suspected of COVID-19. An individual without symptoms of COVID-19 and who is not shedding SARS-CoV-2 virus would expect to have a negative (not detected) result in this assay. Negative results should be treated as presumptive and, if inconsistent with clinical signs and symptoms or necessary for patient management, should be tested with an alternative molecular assay. Negative results do not preclude SARS-CoV-2 infection and should not be used as the sole basis for patient management decisions. Fact sheet for Healthcare Providers: https://www.[employer].gov/media/909263/download Fact sheet for Patients: https://www.fda.gov/media/934165/download Methodology: Isothermal Nucleic Acid Amplification Source .THROAT [facility] [employer] Phone: Otheron 11-15-2020 SARS-CoV-2 [facility] [employer] Phone: CBC Auto Differentialon - Basophils (Bld) [#/Vol] 0.10 10*3/uL [facility], [place] Basophils/100 WBC (Bld) 1 % 0 - 2 % [facility] [place] Differential Type YES [facility] [place] Eosinophils (Bld) [#/Vol] 0.10 10*3/uL [place] Eosinophils/100 WBC (Bld) 1 % 0 - 5 % [place] Erythrocyte distribution width (RBC) [Ratio] 16.3 % High 12.1 - 15.2 % [place] Hematocrit (Bld) [Volume fraction] 36.5 % 36 - 46 % [place] Hemoglobin (Bld) [Mass/Vol] 12.5 g/dL 12 - 16 g/dL [place] Interpretation and review of laboratory results Abnormal [place] Lymphocytes (Bld) [#/Vol] 1.90 10*3/uL [place] Lymphocytes/100 WBC (Bld) 25 % 15 - 40 % [place] MCH (RBC) [Entitic mass] 28.8 pg 26 - 34 pg [place] MCHC (RBC) [Mass/Vol] 34.3 g/dL 31 - 37 g/dL M [place] MCV (RBC) [Entitic vol] 84.0 fL 80 - 100 fL [place] Monocytes (Bld) [#/Vol] 0.40 10*3/uL [place] Monocytes/100 WBC (Bld) 5 % 4 - 8 % [place] Platelet mean volume (Bld) [Entitic vol] NOT REPORTED 6 - 12 fL [place] Platelets (Bld) [#/Vol] 167 10*3/uL [place] Platelets (Bld) [#/Vol] NOT REPORTED [place] RBC (Bld) [#/Vol] 4.35 10*6/uL 4 - 5.2 m/uL [place] RBC morphology finding Nom (Bld) NOT REPORTED [place] Segmented neutrophils/100 WBC (Bld) 68 % 47 - 75 % [place] Segs Absolute 5.40 [place] WBC (Bld) [#/Vol] 7.8 10*3/uL [place] WBC (Bld) [#/Vol] NOT REPORTED per 100 WBC [place] WBC Morphology NOT REPORTED [place] Comprehensive Metabolic Pane l w/ Reflex to MGon 09-16-2020 Albumin [Mass/Vol] 4.4 g/dL 3.5 - 5.2 g/dL [place] Albumin/Globulin [Mass ratio] NOT REPORTED [place] ALP [Catalytic activity/Vol] 117 U/L High 35 - 104 U/L [place] ALT [Catalytic activity/Vol] 41 U/L High 5 - 33 U/L [place] Anion gap [Moles/Vol] 10 mmol/L 9 - 17 mmol/L [place] AST [Catalytic activity/Vol] 39 U/L High <32 [place] Bilirubin Ql (U) 0.52 mg/dL 0.3 - 1.2 mg/dL [place] Bun/Cre Ratio 11 [place] Calcium [Mass/Vol] 9.0 mg/dL 8.6 - 10. 4 mg/dL [place] Chloride [Moles/Vol] 101 mmol/L 98 - 10 7 mmol/L [place] CO2 [Moles/Vol] 26 mmol/L 20 - 31 mmol/L [place] Creatinine [Mass/Vol] 1.32 mg/dL High 0.5 - 0.9 mg/dL [place] GFR 54 mL/min Low >60 [place] GFR Non- 44 mL/min Low >60 [place] GFR/1.73 sq M predicted among non-blacks MDRD (S/P/Bld) [Vol rate/Area] [place] Comment on above: Average GFR for 40-4 9 years old: 99 mL/min/1.73sq m Chronic Kidney Disease: <60 mL/min/1.73sq m Kidney failure: <15 mL/min/1.73sq m eGFR calculated using average adult body mass. Additional eGFR calculator available at: http://www.GHash.IO/multiple_crcl_2012.htm GFR/1.73 sq M predicted among non-blacks MDRD (S/P/Bld) [Vol rate/Area] NOT REPORTED [place] Glucose [Mass/Vol] 173 mg/dL High 70 - 99 mg/dL [place] Interpretation and review of laboratory results Abnormal [place] Potassium [Moles/Vol] 3.9 mmol/L 3.7 - 5.3 mmol/L [place] Protein [Mass/Vol] 7.3 g/dL 6.4 - 8.3 g/dL [place] Sodium [Moles/Vol] 137 mmol/L 135 - 144 mmol/L [place] Urea nitrogen [Mass/Vol] 15 mg/dL 6 - 20 mg/dL [place] Otheron 09-16-2020 Immature granulocytes (Bld) [#/Vol] NOT REPORTED [place] Sedimentation Rateon 020 Sed Rate 15 mm 0 - 20 mm [place] Urinalysis, reflex to micros copicon 09-16-2020 Bilirubin Urine Negative NEGATIVE [place] Color, UA YELLOW YELLOW [place] Glucose, Ur Negative NEGATIVE [place] Interpretation and review of laboratory results Abnormal [place] Ketones Ql (U) Negative NEGATIVE [place] Leukocyte esterase Test strip Ql (U) Negative NEGATIVE [place] Nitrite, Urine Negative NEGATIVE [place] pH, UA 5.0 [place] Protein (U) [Mass/Vol] TRACE Abnormal NEGATIVE [place] Specific [place], UA 1.025 [place] Turbidity UA CLEAR CLEAR [place] Urinalysis Comments [place] Urine Hgb Negative NEGATIVE [place] Urobilinogen, Urine Normal Normal [place] C-Reactive Proteinon 020 CRP [Mass/Vol] 6 mg/L High 0 - 5 mg/L [place] Interpretation and review of laboratory results Abnormal [place] CBC With Auto Differentialon 08-24-2020 Basophils (Bld) [#/Vol] 0.00 10*3/uL [place] Basophils/100 WBC (Bld) 1 % 0 - 2 % [place] Differential Type YES [place] Eosinophils (Bld) [#/Vol] 0.10 10*3/uL [place] Eosinophils/100 WBC (Bld) 1 % 0 - 5 % [place] Erythrocyte distribution width (RBC) [Ratio] 16.2 % High 12.1 - 15.2 % [place] Hematocrit (Bld) [Volume fraction] 35.4 % Low 36 - 46 % [place] Hemoglobin (Bld) [Mass/Vol] 12.2 g/dL 12 - 16 g/dL [place] Interpretation and review of laboratory results Abnormal [place] Lymphocytes (Bld) [#/Vol] 1.60 10*3/uL [place] Lymphocytes/100 WBC (Bld) 28 % 15 - 40 % [place] MCH (RBC) [Entitic mass] 29.1 pg 26 - 34 pg [place] MCHC (RBC) [Mass/Vol] 34.5 g/dL 31 - 37 g/dL M [place] MCV (RBC) [Entitic vol] 84.2 fL 80 - 100 fL [place] Monocytes (Bld) [#/Vol] 0.40 10*3/uL [place] Monocytes/100 WBC (Bld) 6 % 4 - 8 % [place] Platelet mean volume (Bld) [Entitic vol] NOT REPORTED 6 - 12 fL [place] Platelets (Bld) [#/Vol] 160 10*3/uL [place] Platelets (Bld) [#/Vol] NOT REPORTED [place] RBC (Bld) [#/Vol] 4.20 10*6/uL 4 - 5.2 m/uL [place] RBC morphology finding Nom (Bld) NOT REPORTED [place] Segmented neutrophils/100 WBC (Bld) 64 % 47 - 75 % [place] Segs Absolute 3.80 [place] WBC (Bld) [#/Vol] 5.8 10*3/uL [place] WBC (Bld) [#/Vol] NOT REPORTED per 100 WBC [place] WBC Morphology NOT REPORTED [place] Otheron 08-24-2020 Immature granulocytes (Bld) [#/Vol] NOT REPORTED 0 % [place] Sedimentation Rateon 020 Sed Rate 10 mm 0 - 20 mm [place] C-Reactive Proteinon 020 CRP [Mass/Vol] 2 mg/L 0 - 5 mg/L [place] CBC With Auto Differentialon 07-24-2020 Basophils (Bld) [#/Vol] 0.10 10*3/uL [place] Basophils/100 WBC (Bld) 1 % 0 - 2 % [place] Differential Type YES [place] Eosinophils (Bld) [#/Vol] 0.10 10*3/uL [place] Eosinophils/100 WBC (Bld) 1 % 0 - 5 % [place] Erythrocyte distribution width (RBC) [Ratio] 16.8 % High 12.1 - 15.2 % [place] Hematocrit (Bld) [Volume fraction] 40.0 % 36 - 46 % [place] Hemoglobin (Bld) [Mass/Vol] 13.5 g/dL 12 - 16 g/dL [place] Interpretation and review of laboratory results Abnormal [place] Lymphocytes (Bld) [#/Vol] 1.70 10*3/uL [place] Lymphocytes/100 WBC (Bld) 17 % 15 - 40 % [place] MCH (RBC) [Entitic mass] 29.1 pg 26 - 34 pg [place] MCHC (RBC) [Mass/Vol] 33.8 g/dL 31 - 37 g/dL [place] MCV (RBC) [Entitic vol] 86.0 fL 80 - 100 fL [place] Monocytes (Bld) [#/Vol] 0.50 10*3/uL [place] Monocytes/100 WBC (Bld) 5 % 4 - 8 % [place] Platelet mean volume (Bld) [Entitic vol] NOT REPORTED 6 - 12 fL [place] Platelets (Bld) [#/Vol] NOT REPORTED [place] Platelets (Bld) [#/Vol] 208 10*3/uL [place] RBC (Bld) [#/Vol] 4.65 10*6/uL 4 - 5.2 m/uL [place] RBC morphology finding Nom (Bld) NOT REPORTED [place] Segmented neutrophils/100 WBC (Bld) 76 % High 47 - 75 % [place] Segs Absolute 7.70 High [place] WBC (Bld) [#/Vol] NOT REPORTED per 100 WBC [place] WBC (Bld) [#/Vol] 10.0 10*3/uL [place] WBC Morphology NOT REPORTED [place] Otheron 07-24-2020 Immature granulocytes (Bld) [#/Vol] NOT REPORTED 0 % [place] Sedimentation Rateon 020 Sed Rate 6 mm 0 - 20 mm [place] Protein / creatinine ratio, urineon 06-07-2020 Creatinine, Ur 101.2 mg/dL 28 - 217 mg/dL [place] Protein (U) [Mass/Vol] 8 mg/dL [place] Comment on above: No normal range esta blished. Urine Total Protein Creatinine Ratio 0.08 [place] Urinalysison 06-07-2020 Bilirubin Urine Negative NEGATIVE [place] Color, UA YELLOW YELLOW [place] Glucose, Ur 100 mg/dL Abnormal NEGATIVE [place] Interpretation and review of laboratory results Abnormal [place] Ketones Ql (U) Negative NEGATIVE [place] Leukocyte esterase Test strip Ql (U) Negative NEGATIVE [place] Nitrite, Urine Negative NEGATIVE [place] pH, UA 6.0 [place] Protein (U) [Mass/Vol] Negative NEGATIVE [place] Specific [place], UA 1.020 [place] Turbidity UA CLEAR CLEAR [place] Urinalysis Comments [place] Urine Hgb Negative NEGATIVE [place] Urobilinogen, Urine Normal Normal [place] Comprehensive Metabolic Pane lyn 05-25-2020 Albumin [Mass/Vol] 4.4 g/dL 3.5 - 5.2 g/dL [place] Albumin/Globulin [Mass ratio] NOT REPORTED [place] ALP [Catalytic activity/Vol] 87 U/L 35 - 104 U/L [place] ALT [Catalytic activity/Vol] 21 U/L 5 - 33 U/L [place] Anion gap [Moles/Vol] 10 mmol/L 9 - 17 mmol/L [place] AST [Catalytic activity/Vol] 22 U/L <32 [place] Bilirubin Ql (U) 0.32 mg/dL 0.3 - 1.2 mg/dL [place] Bun/Cre Ratio 18 [place] Calcium [Mass/Vol] 10.1 mg/dL 8.6 - 10. 4 mg/dL [place] Chloride [Moles/Vol] 104 mmol/L 98 - 10 7 mmol/L [place] CO2 [Moles/Vol] 26 mmol/L 20 - 31 mmol/L [place] Creatinine [Mass/Vol] 1.37 mg/dL High 0.5 - 0.9 mg/dL [place] GFR 52 mL/min Low >60 [place] GFR Non- 43 mL/min Low >60 [place] GFR/1.73 sq M predicted among non-blacks MDRD (S/P/Bld) [Vol rate/Area] NOT REPORTED [place] GFR/1.73 sq M predicted among non-blacks MDRD (S/P/Bld) [Vol rate/Area] [place] Comment on above: Average GFR for 40-4 9 years old: 99 mL/min/1.73sq m Chronic Kidney Disease: <60 mL/min/1.73sq m Kidney failure: <15 mL/min/1.73sq m eGFR calculated using average adult body mass. Additional eGFR calculator available at: http://www.GHash.IO/multiple_crcl_2012.htm Glucose [Mass/Vol] 160 mg/dL High 70 - 99 mg/dL [place] Interpretation and review of laboratory results Abnormal [place] Potassium [Moles/Vol] 4.6 mmol/L 3.7 - 5.3 mmol/L [place] Protein [Mass/Vol] 7.4 g/dL 6.4 - 8.3 g/dL [place] Sodium [Moles/Vol] 140 mmol/L 135 - 144 mmol/L [place] Urea nitrogen [Mass/Vol] 24 mg/dL High 6 - 20 mg/dL [place] Hemoglobin A1Con 05-25-2020 Glucose [Mass/Vol] 123 mg/dL [place] Comment on above: The ADA and AACC rec ommend providing the estimated average glucose result to permit better patient understanding of their HBA1c result. HbA1c (Bld) [Mass fraction] 5.9 % 4 - 6 % [place] LDL Cholesterol, Directon Cholesterol in LDL [Mass/Vol] 58 mg/dL <100 [place] Lipid Panelon 05-25-2020 Cholesterol [Mass/Vol] 194 mg/dL <200 [place] Comment on above: Cholesterol Guidelines: <200 Desirable 200-240 Borderline >240 Undesirable Cholesterol in HDL [Mass/Vol] 27 mg/dL Low >40 [place] Comment on above: HDL Guidelines: <40 Undesirable 40-59 Borderline >59 Desirable Cholesterol in LDL [Mass/Vol] 0 - 130 mg/dL [place] Comment on above: Calculation not jacqueline d for Triglyceride value greater than 400 mg/dL. Direct LDL reflexed LDL Guidelines: <100 Desirable 100-129 Near to/above Desirable 130-159 Borderline >159 Undesirable Direct (measured) LDL and calculated LDL are not interchangeable tests. Cholesterol in VLDL [Mass/Vol] NOT REPORTED 1 - 30 mg/dL [place], [place] Cholesterol.total/Cho lesterol in HDL [Mass ratio] 7.2 {ratio} High <5 [place] Interpretation and review of laboratory results Abnormal [place] Triglyceride [Mass/Vol] 1112 mg/dL High <150 [place] Comment on above: Triglyceride Guidelines: <150 Desirable 150-199 Borderline 200-499 High >499 Very high Based on AHA Guidelines for fasting triglyceride, July 2012. Patient Fasting?on 0 Patient Fasting? YES [place] Vitamin D 25 Hydroxyon 05-25 Vit D, 25-Hydroxy 30.2 ng/mL 30 - 100 ng/mL [place] Comment on above: Reference Range: Vitamin D status Range Deficiency <20 ng/mL Mild Deficiency 20-30 ng/mL Sufficiency 30-100 ng/mL Toxicity >100 ng/mL C-Reactive Proteinon 020 CRP [Mass/Vol] 6.2 mg/L High 0 - 5 mg/L [place] Interpretation and review of laboratory results Abnormal [place] Hemoglobin [id number] By: Kevin Allen on 09-24-2019 Glucose [Mass/Vol] 108 mg/dL [facility] [employer] Phone: Comment on above: The ADA and AACC rec ommend providing the estimated average glucose result to permit better patient understanding of their HBA1c result. HbA1c (Bld) [Mass fraction] 5.4 % 4.8 - 5.9 % [employer] Phone: Homocysteine, SerumOrdered B y: Janel Allen on 09-24-2019 Homocysteine 9 umol/L <15.0 [employer] Phone: TSH without ReflexOrdered By : Janel Allen on 09-24-2019 TSH Qn 1.03 m[IU]/L [facility]: Vitamin B12 & FolateOrdered By: Janel Allen on 09-24-2019 Cobalamin (Vitamin B12) [Mass/Vol] 292 pg/mL 232 - 1245 pg/mL [employer] Work Phone: Folate 13.8 ng/mL >4.8 [employer] Phone: XR CERVICAL SPINE (4-5 VIEWS )on 07-29-2019 Mild degenerative changes cervical spine not unusual for age. Refer to the [facility] services 02/03/2019 with some of the findings discussed above. [place] EXAM: XR CERVICAL SPINE (4-5 VIEWS) HISTORY: Reason for exam:->history MRSA discitis of thoracic region. New tingling and numbness of fingers COMPARISON: MRI cervical spine [facility] 02/03/2019, cervical spine series 04/03/2010. The MRI 02/03/2019 demonstrated multilevel disc-osteophyte complexes most prominently at C6-C7. Central disc protrusion at C6-C7 with disc-osteophyte complex caused mild canal stenosis with possible myelomalacia or cord edema at C6-C7. TECHNIQUE: Cervical spine series 6 views, 7 images. FINDINGS: Mild degenerative change at C5-C6 and C6-C7 unchanged. No fracture, lytic or blastic lesion. No bony foraminal narrowing. The odontoid is normal. Swimmer's lateral view shows no additional abnormality. 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 New tingling and numbness of fingers COMPARISON: MRI cervical spine [facility] 02/03/2019, cervical spine series 04/03/2010. The MRI 02/03/2019 demonstrated multilevel disc-osteophyte complexes most prominently at C6-C7. Central disc protrusion at C6-C7 with disc-osteophyte complex caused mild canal stenosis with possible myelomalacia or cord edema at C6-C7. TECHNIQUE: Cervical spine series 6 views, 7 images. FINDINGS: Mild degenerative change at C5-C6 and C6-C7 unchanged. No fracture, lytic or blastic lesion. No bony foraminal narrowing. The odontoid is normal. Swimmer's lateral view shows no additional abnormality. IMPRESSION: Mild degenerative changes cervical spine not unusual for age. Refer to the [facility] services 02/03/2019 with some of the findings discussed above. [place] C-Reactive ProteinOrdered By : Azalea Knight on 07-28-2019 CRP [Mass/Vol] 6.4 mg/L High 0 - 5 mg/L [place] Interpretation and review of laboratory results Abnormal [place] CBC With Auto DifferentialOr dered By: Azalea Knight on 07-28-2019 Absolute Eos # 0.10 [place] Absolute Immature Granulocyte NOT REPORTED [place] Absolute Lymph # 2.10 [place] Absolute [place] # 0.50 [place] Basophils (Bld) [#/Vol] 0.00 10*3/uL [place] Basophils/100 WBC (Bld) 1 % 0 - 2 % [place] Differential Type YES [place] Eosinophils/100 WBC (Bld) 1 % 0 - 5 % [place] Erythrocyte distribution width (RBC) [Ratio] 14.5 % 12.1 - 15.2 % [place] Hematocrit (Bld) [Volume fraction] 38.1 % 36 - 46 % [place] Hemoglobin (Bld) [Mass/Vol] 12.9 g/dL 12 - 16 g/dL [place] Immature Granulocytes NOT REPORTED 0 % M [place] Lymphocytes/100 WBC (Bld) 34 % 15 - 40 % [place] MCH (RBC) [Entitic mass] 29.5 pg 26 - 34 pg [place] MCHC (RBC) [Mass/Vol] 33.9 g/dL 31 - 37 g/dL M [place] MCV (RBC) [Entitic vol] 87.1 fL 80 - 100 fL [place] Monocytes/100 WBC (Bld) 8 % 4 - 8 % [place] MPV NOT REPORTED 6 - 12 fL [place] NRBC Automated NOT REPORTED per 100 WBC [place] Platelet Estimate NOT REPORTED [place] Platelets (Bld) [#/Vol] 222 10*3/uL [place] RBC (Bld) [#/Vol] 4.38 10*6/uL 4 - 5.2 m/uL [place] RBC morphology finding Nom (Bld) NOT REPORTED [place] Segmented neutrophils/100 WBC (Bld) 56 % 47 - 75 % [place] Segs Absolute 3.50 [place] WBC (Bld) [#/Vol] 6.2 10*3/uL [place] WBC Morphology NOT REPORTED [place] Sedimentation RateOrdered By : Azalea Knight on 07-28-2019 Sed Rate 19 mm 0 - 30 mm [place] C-Reactive Proteinon 019 CRP [Mass/Vol] 7.3 mg/L High 0 - 5 mg/L [place] Interpretation and review of laboratory results Abnormal [place] Albuminon 06-17-2019 Albumin [Mass/Vol] 4.3 g/dL 3.5 - 5.2 g/dL [place], [place] BUN & Creatinineon 9 Creatinine [Mass/Vol] 1.27 mg/dL High 0.5 - 0.9 mg/dL [place] GFR 56 mL/min Low >60 [place] GFR Non- 47 mL/min Low >60 [place] GFR/1.73 sq M predicted among non-blacks MDRD (S/P/Bld) [Vol rate/Area] NOT REPORTED [place] GFR/1.73 sq M predicted among non-blacks MDRD (S/P/Bld) [Vol rate/Area] [place], [place] Comment on above: Average GFR for 40-4 9 years old: 99 mL/min/1.73sq m Chronic Kidney Disease: <60 mL/min/1.73sq m Kidney failure: <15 mL/min/1.73sq m eGFR calculated using average adult body mass. Additional eGFR calculator available at: http://www.ProPlan.Mangia/multiple_crcl_2011.htm Interpretation and review of laboratory results Abnormal [place] Urea nitrogen [Mass/Vol] 18 mg/dL 6 - 20 mg/dL [place] Calciumon 06-17-2019 Calcium [Mass/Vol] 10.4 mg/dL 8.6 - 10. 4 mg/dL [place] Electrolyte Panelon 06-17-20 19 Anion gap [Moles/Vol] 13 mmol/L 9 - 17 mmol/L [place] Chloride [Moles/Vol] 103 mmol/L 98 - 10 7 mmol/L [place] CO2 [Moles/Vol] 24 mmol/L 20 - 31 mmol/L [place] Potassium [Moles/Vol] 3.8 mmol/L 3.7 - 5.3 mmol/L [place] Sodium [Moles/Vol] 140 mmol/L 135 - 144 mmol/L [place] Hemoglobin and Hematocrit, B loodon 06-17-2019 Hematocrit (Bld) [Volume fraction] 35.4 % Low 36 - 46 % [place] Hemoglobin (Bld) [Mass/Vol] 12.1 g/dL 12 - 16 g/dL [place] Interpretation and review of laboratory results Abnormal [place] Magnesiumon 06-17-2019 Magnesium [Mass/Vol] 2.3 mg/dL 1.6 - 2 .6 mg/dL [place] Microscopic Urinalysison Amorphous, UA NOT REPORTED None [place], [place] Bacteria, UA 1+ Abnormal None [place] Casts UA NOT REPORTED /LPF [place] Crystals UA NOT REPORTED None /HPF [place] Epithelial Cells UA 2 TO 5 /HPF [place] Interpretation and review of laboratory results Abnormal [place] Mucus, UA NOT REPORTED None [place] Other Observations UA NOT REPORTED NOT REQ. M [place] RBC (U) [#/Vol] NOT REPORTED [facility] [place] Renal Epithelial, Urine NOT REPORTED 0 /HPF [place] Trichomonas, UA NOT REPORTED None [place] WBC, UA 0 TO 2 0 /HPF [place] Yeast, UA NOT REPORTED None [place], [place] - [place] Phosphoruson 06-17-2019 Phosphate [Mass/Vol] 3.0 mg/dL 2.6 - 4 .5 mg/dL [place] Protein / creatinine ratio, urineon 06-17-2019 Creatinine, Ur 228.2 mg/dL High 28 - 217 mg/dL [place] Interpretation and review of laboratory results Abnormal [place] Protein (U) [Mass/Vol] 18 mg/dL [place] Comment on above: No normal range esta blished. Urine Total Protein Creatinine Ratio 0.08 [place], [place] Sedimentation Rateon 019 Sed Rate 24 mm 0 - 30 mm [place] Urinalysison 06-17-2019 Bilirubin Urine Negative NEGATIVE [place] Color, UA YELLOW YELLOW [place], [place] Glucose, Ur Negative NEGATIVE [place] Interpretation and review of laboratory results Abnormal [place] Ketones Ql (U) Negative NEGATIVE [place] Leukocyte esterase Test strip Ql (U) Negative NEGATIVE [place] Nitrite, Urine Negative NEGATIVE [place] pH, UA 6.0 [place], [place] Protein (U) [Mass/Vol] TRACE Abnormal NEGATIVE [place] Specific [place], UA 1.025 [place] Turbidity UA HAZY Abnormal CLEAR [place] Urinalysis Comments [place] Urine Hgb Negative NEGATIVE [place] Urobilinogen, Urine Normal Normal [place] MR CERVICAL SPINE WITHOUT CO NTRASTon 02-03-2019 Motion artifact on essentially all of the sequences, somewhat degrading evaluation, particularly fine osseous and soft tissue detail. Disc-osteophyte complexes at C4-C5, C5-C6 and most prominently at C6-C7. At C6-C7, there is a disc-osteophyte complex with central disc protrusion creating effacement of the ventral aspect of the thecal sac, overall mild spinal canal stenosis and probable mild mass effect/impression on the ventral spinal cord. There is possible focal hyperintense intramedullary STIR/T2 signal at the C6-C7 level which may be due to myelomalacia or cord edema. /[facility] Workstation ID: [id number] [facility] EXAMINATION: MR CERVICAL SPINE WITHOUT CONTRAST HISTORY: ORDERING SYSTEM PROVIDED HISTORY: Brachial neuritis, TECHNOLOGIST PROVIDED HISTORY: Reason for exam: neck pain Illness/Other Encounter Type: Initial Additional signs and symptoms: neck pain, chronic hx of multiple old injuries ORDERING SYSTEM PROVIDED DIAGNOSIS CODES: M54.12 Brachial neuritis G62.9 Peripheral nerve disorder M62.838 Spasm of muscle COMPARISON: Cervical spine radiographs from April 03, 2010. TECHNIQUE: Multiplanar, multisequential MR images were performed of the cervical spine without intravenous contrast. FINDINGS: There is motion artifact on essentially all of the sequences, somewhat degrading evaluation. Limited visualization of the structures of the posterior fossa are unremarkable. The craniocervical junction is unremarkable. The vertebral bodies and facets are anatomically aligned. The disc spaces appear relatively maintained. No acute fracture is present. At C2-C3, there is no significant spinal canal or neural foraminal stenosis. At C3-C4, there is no significant spinal canal or neural foraminal stenosis. At C4-C5, there appears to be a disc-osteophyte complex, partially effacing the ventral aspect of the thecal sac without significant spinal canal or neural foraminal stenosis. At C5-C6, there is a disc-osteophyte complex creating effacement of the ventral aspect of the thecal sac and overall mild spinal canal stenosis. It is difficult to definitively characterize whether there is mild impression on the ventral aspect of the spinal cord given the degree of motion artifact. There is left-sided uncovertebral joint and facet hypertrophy creating mild left neural foraminal stenosis. At C6-C7, there is a disc-osteophyte complex with central disc protrusion creating effacement of the ventral aspect of the thecal sac, overall mild spinal canal stenosis and probable mass effect/impression on the ventral spinal cord (series 5, image 8 and series 7, image 18). There is mild bilateral uncovertebral joint and facet hypertrophy creating mild bilateral neural foraminal stenosis. There may be focal hyperintense intramedullary STIR/T2 signal at the C6-C7 level as on series 8, image 9 and series 10 images 18-21). At C7-T1, there is no significant spinal canal stenosis. There is left-sided uncovertebral joint and facet hypertrophy creating probable mild left-sided neural foraminal stenosis. [facility], Prasad In Aric Mohanq - 02/03/2019 11:02 AM EDT EXAMINATION: MR CERVICAL SPINE WITHOUT CONTRAST HISTORY: ORDERING SYSTEM PROVIDED HISTORY: Brachial neuritis, TECHNOLOGIST PROVIDED HISTORY: Reason for exam: neck pain Illness/Other Encounter Type: Initial Additional signs and symptoms: neck pain, chronic hx of multiple old injuries ORDERING SYSTEM PROVIDED DIAGNOSIS CODES: M54.12 Brachial neuritis G62.9 Peripheral nerve disorder M62.838 Spasm of muscle COMPARISON: Cervical spine radiographs from April 03, 2010. TECHNIQUE: Multiplanar, multisequential MR images were performed of the cervical spine without intravenous contrast. FINDINGS: There is motion artifact on essentially all of the sequences, somewhat degrading evaluation. Limited visualization of the structures of the posterior fossa are unremarkable. The craniocervical junction is unremarkable. The vertebral bodies and facets are anatomically aligned. The disc spaces appear relatively maintained. No acute fracture is present. At C2-C3, there is no significant spinal canal or neural foraminal stenosis. At C3-C4, there is no significant spinal canal or neural foraminal stenosis. At C4-C5, there appears to be a disc-osteophyte complex, partially effacing the ventral aspect of the thecal sac without significant spinal canal or neural foraminal stenosis. At C5-C6, there is a disc-osteophyte complex creating effacement of the ventral aspect of the thecal sac and overall mild spinal canal stenosis. It is difficult to definitively characterize whether there is mild impression on the ventral aspect of the spinal cord given the degree of motion artifact. There is left-sided uncovertebral joint and facet hypertrophy creating mild left neural foraminal stenosis. At C6-C7, there is a disc-osteophyte complex with central disc protrusion creating effacement of the ventral aspect of the thecal sac, overall mild spinal canal stenosis and probable mass effect/impression on the ventral spinal cord (series 5, image 8 and series 7, image 18). There is mild bilateral uncovertebral joint and facet hypertrophy creating mild bilateral neural foraminal stenosis. There may be focal hyperintense intramedullary STIR/T2 signal at the C6-C7 level as on series 8, image 9 and series 10 images 18-21). At C7-T1, there is no significant spinal canal stenosis. There is left-sided uncovertebral joint and facet hypertrophy creating probable mild left-sided neural foraminal stenosis. IMPRESSION: Motion artifact on essentially all of the sequences, somewhat degrading evaluation, particularly fine osseous and soft tissue detail. Disc-osteophyte complexes at C4-C5, C5-C6 and most prominently at C6-C7. At C6-C7, there is a disc-osteophyte complex with central disc protrusion creating effacement of the ventral aspect of the thecal sac, overall mild spinal canal stenosis and probable mild mass effect/impression on the ventral spinal cord. There is possible focal hyperintense intramedullary STIR/T2 signal at the C6-C7 level which may be due to myelomalacia or cord edema. /[employer] Workstation ID: [id number] [facility] MR CERVICAL SPINE WITHOUT CONTRAST EXAMINATION: MR CERVICAL SPINE WITHOUT CONTRAST HISTORY: ORDERING SYSTEM PROVIDED HISTORY: Brachial neuritis, TECHNOLOGIST PROVIDED HISTORY: Reason for exam: neck pain Illness/Other Encounter Type: Initial Additional signs and symptoms: neck pain, chronic hx of multiple old injuries ORDERING SYSTEM PROVIDED DIAGNOSIS CODES: M54.12 Brachial neuritis G62.9 Peripheral nerve disorder M62.838 Spasm of muscle COMPARISON: Cervical spine radiographs from April 03, 2010. TECHNIQUE: Multiplanar, multisequential MR images were performed of the cervical spine without intravenous contrast. FINDINGS: There is motion artifact on essentially all of the sequences, somewhat degrading evaluation. Limited visualization of the structures of the posterior fossa are unremarkable. The craniocervical junction is unremarkable. The vertebral bodies and facets are anatomically aligned. The disc spaces appear relatively maintained. No acute fracture is present. At C2-C3, there is no significant spinal canal or neural foraminal stenosis. At C3-C4, there is no significant spinal canal or neural foraminal stenosis. At C4-C5, there appears to be a disc-osteophyte complex, partially effacing the ventral aspect of the thecal sac without significant spinal canal or neural foraminal stenosis. At C5-C6, there is a disc-osteophyte complex creating effacement of the ventral aspect of the thecal sac and overall mild spinal canal stenosis. It is difficult to definitively characterize whether there is mild impression on the ventral aspect of the spinal cord given the degree of motion artifact. There is left-sided uncovertebral joint and facet hypertrophy creating mild left neural foraminal stenosis. At C6-C7, there is a disc-osteophyte complex with central disc protrusion creating effacement of the ventral aspect of the thecal sac, overall mild spinal canal stenosis and probable mass effect/impression on the ventral spinal cord (series 5, image 8 and series 7, image 18). There is mild bilateral uncovertebral joint and facet hypertrophy creating mild bilateral neural foraminal stenosis. There may be focal hyperintense intramedullary STIR/T2 signal at the C6-C7 level as on series 8, image 9 and series 10 images 18-21). At C7-T1, there is no significant spinal canal stenosis. There is left-sided uncovertebral joint and facet hypertrophy creating probable mild left-sided neural foraminal stenosis. IMPRESSION: Motion artifact on essentially all of the sequences, somewhat degrading evaluation, particularly fine osseous and soft tissue detail. Disc-osteophyte complexes at C4-C5, C5-C6 and most prominently at C6-C7. At C6-C7, there is a disc-osteophyte complex with central disc protrusion creating effacement of the ventral aspect of the thecal sac, overall mild spinal canal stenosis and probable mild mass effect/impression on the ventral spinal cord. There is possible focal hyperintense intramedullary STIR/T2 signal at the C6-C7 level which may be due to myelomalacia or cord edema. /[facility] Workstation ID: [id number] Dictated by: RONALD MCCRAY on ThuFebruary 03, 2019 10:34:16 AM EDT Transcribed by: FELICITY DE JESUS on ThuFebruary 03, 2019 10:58:51 AM EDT Finalized by: RONALD MCCRAY on ThuFebruary 03, 2019 10:59:35 AM EDT [facility] Comment on above: Order Comment: Reaso n for exam?:neck pain Injury/Trauma or Illness?:Illness/Other How long have you had these symptoms (acute/chronic)?:Chronic Type of Exam?:Initial Additional signs and symptoms?:neck pain, chronic hx of multiple old injuries Cult,Mycobacteriaon 10-11-19 19 Cult,Mycobacteria Specimen Description .TISSUE EPIDURAL TISSUE Special Requests NOT REPORTED Direct Exam NO ACID FAST BACILLI SEEN (DIRECT SMEAR) Culture NO GROWTH 48 DAYS Report Status FINAL 10/11/2018 [facility] Comment on above: Performed By: #### T ROPI #### [facility] [address] [place] [address] Cult,Mycobacteria Specimen Description .SPINE .TISSUE T4 LAMINA Special Requests NOT REPORTED Direct Exam NO ACID FAST BACILLI SEEN (DIRECT SMEAR) Culture NO GROWTH 48 DAYS Report Status FINAL 10/11/2018 [facility] Comment on above: Performed By: #### L ACWB #### [id number] [place] [address] Cult,Funguson 09-27-2018 Cult,Fungus Specimen Description .TISSUE EPIDURAL TISSUE Special Requests NOT REPORTED Culture NO GROWTH 34 DAYS Report Status FINAL 09/27/2018 [facility] Comment on above: Performed By: #### L ACWB #### [address] [address] Cult,Fungus Specimen Description .SPINE .TISSUE T4 LAMINA Special Requests NOT REPORTED Culture NO GROWTH 34 DAYS Report Status FINAL 09/27/2018 [facility] Comment on above: Performed By: #### L ACWB #### [address] [address] BUNon 09-23-2018 Urea nitrogen mass conc 20 mg/dL Normal - [facility] Comment on above: Performed By: #### 2 [id number] ####[id number] [place] [address] Creatinineon 09-23-2018 Creatinine mass conc 1.3 mg/dL High 0.5-1.1 [facility] Comment on above: Performed By: #### 2 [id number] ####[id number] [place] [address] eGFRon 09-23-2018 eGFR AA 54 mL/min/1.73 m2 Normal [facility] Comment on above: Order Comment: Order added by Discern Expert. Performed By: #### 2 [id number] ####[id number] [place] [address] GFR/1.73 sq M predicted among non-blacks MDRD vol rate/area (S/P/Bld) 45 mL/min/1.73 m2 Normal [facility] Comment on above: Order Comment: Order added by Discern Expert. Performed By: #### 2 [id number] ####[id number] [place] [address] Auto Diffon 09-20-2018 Basophils Auto #/vol (Bld) 0.0 E3/mcL Normal 0.0-0.2 [facility] Comment on above: Order Comment: Order Added by Discern Expert. Performed By: #### 2 [id number] ####[id number] [place] [address] Basophils/100 WBC Auto (Bld) 1.1 % Normal 0.0-2.0 [facility] Comment on above: Order Comment: Order Added by Discern Expert. Performed By: #### 2 [id number] ####[id number] [place] [address] Eos Absolute 0.0 E3/mcL Normal 0.0-0.7 [facility] Comment on above: Order Comment: Order Added by Discern Expert. Performed By: #### 2 [id number] ####[id number] [place] [address] Eosinophils/100 WBC Auto (Bld) 0.3 % Normal 0.0-11.0 [facility] Comment on above: Order Comment: Order Added by Discern Expert. Performed By: #### 2 [id number] ####[id number] [place] [address] Lymphocytes Auto #/vol (Bld) 1.2 E3/mcL Normal 1.2-3.4 [facility] Comment on above: Order Comment: Order Added by Discern Expert. Performed By: #### 2 [id number] ####[id number] [place] [address] Lymphocytes/100 WBC Auto (Bld) 30.6 % Normal 20.0-55.0 [facility] Comment on above: Order Comment: Order Added by Discern Expert. Performed By: #### 2 [id number] ####[id number] [place] [address] [place] Absolute 0.4 E3/mcL Normal 0.0-0.7 [facility] Comment on above: Order Comment: Order Added by Discern Expert. Performed By: #### 2 [id number] ####[id number] [place] [address] Monocytes/100 WBC Auto (Bld) 10.2 % High 0.0-10.0 [facility] Comment on above: Order Comment: Order Added by Discern Expert. Performed By: #### 2 [id number] ####OVIDIO [address] [place] [address] Neutro Absolute 2.3 E3/mcL Normal 1.4-6.5 [facility] Comment on above: Order Comment: Order Added by Discern Expert. Performed By: #### 2 [id number] ####OVIDIO [address] [place] [address] Neutro Auto 57.8 % Normal 37.0-75.0 [facility] Comment on above: Order Comment: Order Added by Discern Expert. Performed By: #### 2 [id number] ####OVIDIO [address] [place] [id number] CBC w/ Auto Diffon 8 Erythrocyte distribution width Auto Ratio (RBC) 19.9 % High 11.5-14.5 [facility] Comment on above: Performed By: #### 2 [id number] ####OVIDIO [address] [place] [id number] Hematocrit Auto Volume Fraction (Bld) 26.5 % Low 36.0-48.0 [facility] Comment on above: Performed By: #### 2 [id number] ####OVIDIO [address] [place] [address] Hemoglobin mass conc (Bld) 8.7 g/dL Low 12.0-16.0 [facility] Comment on above: Performed By: #### 2 [id number] ####OVIDIO [address] [place] [address] MCH Auto Entitic mass (RBC) 29.6 pg Normal 27.0-31.0 [facility] Comment on above: Performed By: #### 2 [id number] ####OVID[address] [place] [address] MCHC Auto mass conc (RBC) 32.9 g/dL Low 33.0-37.0 [facility] Comment on above: Performed By: #### 2 [id number] ####OVIDIO [address] [place] [id number] MCV Auto Entitic volume (RBC) 89.8 fL Normal 78.0-100.0 [facility] Comment on above: Performed By: #### 2 [id number] ####OVIDIO [address] [place] [id number] Platelet mean volume Auto Entitic volume (Bld) 10.5 fL Normal 7.4-11.0 [facility] Comment on above: Performed By: #### 2 [id number] ####OVIDIO [address] [place] [address] Platelets Auto #/vol (Bld) 117 E3/mcL Low 130-400 [facility] Comment on above: Performed By: #### 2 [id number] ####OVIDIO [address] [place] [address] RBC Auto #/vol (Bld) 2.95 E6/mcL Low 3.90-5.40 [facility] Comment on above: Performed By: #### 2 [id number] ####OVIDIO [address] [place] [id number] WBC Auto #/vol (Bld) 4.0 E3/mcL Normal 3.6-11.0 [facility] Comment on above: Performed By: #### 2 [id number] ####OVIDIO [address] [place] [id number] CRPon 09-20-2018 CRP mass conc 0.83 mg/dL Normal 0.00-1.00 [facility] Comment on above: Performed By: #### 2 [id number] ####OVIDIO [address] [place] [id number] Morphon 09-20-2018 Anisocytosis Auto Ql (Bld) 1+ Normal [facility] Comment on above: Order Comment: Order Added by Discern Expert. Performed By: #### 1 [id number] ####OVIDIO [address] [place] [id number] Hypochromasia 1+ Normal [facility] Comment on above: Order Comment: Order Added by Discern Expert. Performed By: #### 1 [id number] ####OVIDIO [address] [place] [id number] RBC morphology finding Nom (Bld) SEE MORPHOLOGY Normal [facility] Comment on above: Order Comment: Order Added by Discern Expert. Performed By: #### 1 [id number] ####OVIDIO [address] [place] [address] Sed Rate Automatedon 018 Sed Rate Automated 15 mm/hr Normal [facility] Comment on above: Result Comment: AGE- SPECIFIC REFERENCE RANGES FOR SEDIMENTATION RATE AUTOMATED REFERENCE RANGE - MM/HR AGE MEN WOMEN 0-2 0-2 - PUBERTY 3-13 3-13 PUBERTY - 50 YRS 0-15 0-20 > 50 YRS 0-20 0-30 Performed By: #### 1 [id number] ####OVIDIO Hematology Manual [address] [place] [id number] zzplt morphon 09-20-2018 Platelet morphology finding Nom (Bld) NORMAL Normal [facility] Comment on above: Performed By: #### 9 [id number] ####OVIDIO [address] [place] [id number] Platelets Auto #/vol (Bld) NORMAL Normal [facility] Comment on above: Performed By: #### 9 [id number] ####OVIDIO [address] [place] [address] BLOOD UREA NITROGENon 2017 Urea nitrogen mass conc (Bld) 19 mg/dL Normal 7-20 [facility] Comment on above: Performed By: #### A CBC, ESR, BUN, CREAT, CREACT, FX ####Testing performed at [address] [address] C REACTIVE PROTEINon 018 CRP mass conc 18.5 mg/L High 0-10.0 [facility] Comment on above: Performed By: #### A CBC, ESR, BUN, CREAT, CREACT, FX ####Testing performed at [address] [address] CBCon 09-13-2018 ABSOLUTE BAS 0.1 X10 Normal [facility] Comment on above: Performed By: #### A CBC, ESR, BUN, CREAT, CREACT, FX ####Testing performed at [address] [address] ABSOLUTE EOS 0.20 X10 Normal [facility] Comment on above: Performed By: #### A CBC, ESR, BUN, CREAT, CREACT, FX ####Testing performed at [address] [address] ABSOLUTE NEUTROPHIL COUNT 2.5 x10 Normal 1.0-7.0 [facility] Comment on above: Performed By: #### A CBC, ESR, BUN, CREAT, CREACT, FX ####Testing performed at [address] [address] Basophils/100 WBC Auto (Bld) 1.4 % Normal 0.0-2.0 [facility] Comment on above: Performed By: #### A CBC, ESR, BUN, CREAT, CREACT, FX ####Testing performed at [address] [address] DTYPE AUTO DIFF Normal [facility] Comment on above: Performed By: #### A CBC, ESR, BUN, CREAT, CREACT, FX ####Testing performed at [address] [address] Eosinophils/100 WBC Auto (Bld) 3.5 % Normal 0.0-11.0 [facility] Comment on above: Performed By: #### A CBC, ESR, BUN, CREAT, CREACT, FX ####Testing performed at [address] [address] Lymphocytes Auto #/vol (Bld) 1.10 X10 Normal [facility] Comment on above: Performed By: #### A CBC, ESR, BUN, CREAT, CREACT, FX ####Testing performed at [address] [address] Lymphocytes/100 WBC Auto (Bld) 27.0 % Normal 20.0-55.0 [facility] Comment on above: Performed By: #### A CBC, ESR, BUN, CREAT, CREACT, FX ####[place] [address] Monocytes Auto #/vol (Bld) 0.4 X10 Normal [facility] Comment on above: Performed By: #### A CBC, ESR, BUN, CREAT, CREACT, FX ####[place] [address] Monocytes/100 WBC Auto (Bld) 9.4 % Normal 0.0-10.0 [facility] Comment on above: Performed By: #### A CBC, ESR, BUN, CREAT, CREACT, FX ####[place] [address] Neutrophils/100 WBC Auto (Bld) 58.7 % Normal 37.0-75.0 [facility] Comment on above: Performed By: #### A CBC, ESR, BUN, CREAT, CREACT, FX ####[place] [address] Erythrocyte distribution width Auto Ratio (RBC) 17.6 % High 11.5-14.5 [facility] Comment on above: Performed By: #### A CBC, ESR, BUN, CREAT, CREACT, FX ####[place] [address] Hematocrit Auto Volume Fraction (Bld) 26.2 % Low 36.0-48.0 [facility] Comment on above: Performed By: #### A CBC, ESR, BUN, CREAT, CREACT, FX ####[place] [address] Hemoglobin mass conc (Bld) 8.8 g/dL Low 12.0-16.0 [facility] Comment on above: Performed By: #### A CBC, ESR, BUN, CREAT, CREACT, FX ####[place] [address] MCH Auto Entitic mass (RBC) 29.3 pg Normal 26.0-35.0 [facility] Comment on above: Performed By: #### A CBC, ESR, BUN, CREAT, CREACT, FX ####[place] [address] MCHC Auto mass conc (RBC) 33.7 g/dL Normal 27.0-37.0 [facility] Comment on above: Performed By: #### A CBC, ESR, BUN, CREAT, CREACT, FX ####[place] [address] MCV Auto Entitic volume (RBC) 86.9 fL Normal 80.0-100.0 [facility] Comment on above: Performed By: #### A CBC, ESR, BUN, CREAT, CREACT, FX ####[place] [address] Platelet mean volume Auto Entitic volume (Bld) 10.1 fL Normal 7.4-11.0 [facility] Comment on above: Performed By: #### A CBC, ESR, BUN, CREAT, CREACT, FX ####[place] [address] Platelets Auto #/vol (Bld) 130 /cmm Normal 130.0-400.0 [facility] Comment on above: Performed By: #### A CBC, ESR, BUN, CREAT, CREACT, FX ####[place] [address] RBC Auto #/vol (Bld) 3.01 /cmm Low 4.0-5.4 [facility] Comment on above: Performed By: #### A CBC, ESR, BUN, CREAT, CREACT, FX ####[place] [address] WBC Auto #/vol (Bld) 4.2 /cmm Normal 3.6-11.0 [facility] Comment on above: Performed By: #### A CBC, ESR, BUN, CREAT, CREACT, FX ####[place] [address] CREATININE,SERUMon 8 Creatinine mass conc 1.5 mg/dL High 0.52-1.04 [facility] Comment on above: Performed By: #### A CBC, ESR, BUN, CREAT, CREACT, FX ####[place] [address] EST. GFR, 50 ml/min/1.73sq.m [facility] Comment on above: Performed By: #### A CBC, ESR, BUN, CREAT, CREACT, FX ####Testing performed at [place] [id number] EST. GFR,Non 41 ml/min/1.73sq.m [facility] Comment on above: Performed By: #### A CBC, ESR, BUN, CREAT, CREACT, FX ####[place] [address] GFR/1.73 sq M predicted among non-blacks MDRD vol rate/area (S/P/Bld) Average GFR for 30-39 years old = 109. [facility] Comment on above: Result Comment: Culinary Arts Instructor vasu Kidney disease, GFR = <60.Kidney failure, GFR = <15.The GFR estimate is not adjusted for extreme body surface area or acute process, nor has it been validated for women or ethnic groups other than and . Performed By: #### A CBC, ESR, BUN, CREAT, CREACT, FX ####[place] [address] ESRon 09-13-2018 ESR Velocity (Bld) 49 mm/h High 0-15 [facility] Comment on above: Performed By: #### A CBC, ESR, BUN, CREAT, CREACT, FX ####Testing performed at [place] [id number] FAX REQUESTon 09-13-2018 FAX TO FAX TO DR DEVAN Bernal [phone] AND TO [facility] AT [phone] [facility] Comment on above: Performed By: #### P HY, BUN, CREAT, FX ####Testing performed at [place] [id number] FAX REQUESTon 09-06-2018 FAX TO [phone] [facility] Comment on above: Performed By: #### F X ####Testing performed at [address] [address] BLOOD UREA NITROGENon 2017 Urea nitrogen mass conc (Bld) 21 mg/dL High 7-20 [facility] Comment on above: Performed By: #### P HY, BUN, CREAT, FX ####Testing performed at [place] [id number] CREATININE,SERUMon 8 Creatinine mass conc 1.4 mg/dL High 0.52-1.04 [facility] Comment on above: Performed By: #### P HY, BUN, CREAT, FX ####Testing performed at [place] [id number] EST. GFR, 54 ml/min/1.73sq.m [facility] Comment on above: Performed By: #### P HY, BUN, CREAT, FX ####Testing performed at [place] [id number] EST. GFR,Non 44 ml/min/1.73sq.m [facility] Comment on above: Performed By: #### P HY, BUN, CREAT, FX ####[place] [address] GFR/1.73 sq M predicted among non-blacks MDRD vol rate/area (S/P/Bld) Average GFR for 30-39 years old = 109. [facility] Comment on above: Result Comment: Culinary Arts Instructor vasu Kidney disease, GFR = <60.Kidney failure, GFR = <15.The GFR estimate is not adjusted for extreme body surface area or acute process, nor has it been validated for women or ethnic groups other than and . Performed By: #### P HY, BUN, CREAT, FX ####Testing performed at [address] [address] FAX REQUESTon 08-31-2018 FAX TO [phone] [facility] Comment on above: Performed By: #### P HY, BUN, CREAT, FX ####Testing performed at [address] [address] GAL NEW PHYSICIANon 08-31-20 18 GAL [facility] PH[facility]IC[facility] DEVAN UP [facility] Comment on above: Performed By: #### P HY, BUN, CREAT, FX ####Testing performed at [address] [address] BUNon 08-27-2018 Urea nitrogen mass conc 24 mg/dL High 03-27 [facility] Comment on above: Performed By: #### 2 [id number] ####OVIDIO [address] [place] [address] Creatinineon 08-27-2018 Creatinine mass conc 1.6 mg/dL High 0.5-1.1 [facility] Comment on above: Performed By: #### 2 [id number] ####VOIDIO [address] [place] [address] eGFRon 08-27-2018 eGFR AA 43 mL/min/1.73 m2 [facility] Comment on above: Order Comment: Order added by Discern Expert. Performed By: #### 1 [id number] ####OVIDIO [address] [place] [id number] GFR/1.73 sq M predicted among non-blacks MDRD vol rate/area (S/P/Bld) 36 mL/min/1.73 m2 [facility] Comment on above: Order Comment: Order added by Discern Expert. Performed By: #### 1 [id number] ####OVIDIO [address] [place] [address] Cult,Tissueon 08-26-2018 Cult,Tissue Specimen Description .TISSUE EPIDURAL TISSUE Special Requests NOT REPORTED Direct Exam RARE NEUTROPHILS NO BACTERIA SEEN Culture METHICILLIN RESISTANT STAPHYLOCOCCUS AUREUS LIGHT GROWTH NO ANAEROBIC ORGANISMS ISOLATED AT 5 DAYS Report Status FINAL 08/29/2018 SUSCEPTIBILITY Organism METHICILLIN RESISTANT STAPHYLOCOCCUS AUREUS Method SONIA Penicillin >=0.5 RESISTANT Cefoxitin Screen NOT REPORTED Ciprofloxacin NOT REPORTED Clindamycin <=0.25 SUSCEPTIBLE Erythromycin >=8 RESISTANT Gentamicin <=0.5 SUSCEPTIBLE Induced Clind Resist NEGATIVE Levofloxacin 4 INTERMEDIATE Linezolid NOT REPORTED Moxifloxacin NOT REPORTED Nitrofurantoin NOT REPORTED Oxacillin >=4 RESISTANT Synercid NOT REPORTED Rifampin NOT REPORTED Tetracycline <=1 SUSCEPTIBLE Tigecycline NOT REPORTED Trimethoprim/Sulfa <=10 SUSCEPTIBLE Vancomycin <=0.5 SUSCEPTIBLE Normal [facility] Comment on above: Performed By: #### L ACWB #### [facility] [employer] [address] [place] [address] [id number] Cult,Tissue Specimen Description .SPINE .TISSUE T4 LAMINA Special Requests NOT REPORTED Direct Exam RARE NEUTROPHILS NO BACTERIA SEEN Culture METHICILLIN RESISTANT STAPHYLOCOCCUS AUREUS SCANT GROWTH NO ANAEROBIC ORGANISMS ISOLATED AT 5 DAYS Report Status FINAL 08/29/2018 SUSCEPTIBILITY Organism METHICILLIN RESISTANT STAPHYLOCOCCUS AUREUS Method SONIA Penicillin >=0.5 RESISTANT Cefoxitin Screen NOT REPORTED Ciprofloxacin NOT REPORTED Clindamycin <=0.25 SUSCEPTIBLE Erythromycin >=8 RESISTANT Gentamicin <=0.5 SUSCEPTIBLE Induced Clind Resist NEGATIVE Levofloxacin 4 INTERMEDIATE Linezolid NOT REPORTED Moxifloxacin NOT REPORTED Nitrofurantoin NOT REPORTED Oxacillin >=4 RESISTANT Synercid NOT REPORTED Rifampin NOT REPORTED Tetracycline <=1 SUSCEPTIBLE Tigecycline NOT REPORTED Trimethoprim/Sulfa <=10 SUSCEPTIBLE Vancomycin <=0.5 SUSCEPTIBLE Normal [facility] Comment on above: Performed By: #### L ACWB #### [address] [id number] Basic Metabolic Profon 08-25 (cont.) Normal [facility] Comment on above: Result Comment: Aver age GFR for 30-39 years old: 107 mL/min/1.73sq m Chronic Kidney Disease: <60 mL/min/1.73sq m Kidney failure: <15 mL/min/1.73sq m eGFR calculated using average adult body mass. Additional eGFR calculator available at: http://www.ProPlan.com/multiple_crcl_2012.htm Performed By: #### L ACWB #### [facility] [employer] [address] [place] [address] [id number] Anion gap molar conc 14 mmol/L Normal -17 [facility] Comment on above: Performed By: #### L ACWB #### [address] [place] [address] Calcium mass conc 9.1 mg/dL Normal 8.6-10.4 [facility] Comment on above: Performed By: #### L ACWB #### [facility] [address] [place] [address] Chloride molar conc 96 mmol/L Low 98-107 [facility] Comment on above: Performed By: #### L ACWB #### [facility] [address] [place] [address] CO2 molar conc 23 mmol/L Normal 20-31 [facility] Comment on above: Performed By: #### L ACWB #### [facility] [address] [place] [address] Creatinine mass conc 1.52 mg/dL High 0.50-0.90 [facility] Comment on above: Performed By: #### L ACWB #### [facility] [employer] [address] [place] [address] GFR, Amer 46 mL/min Low >60 [facility] Comment on above: Performed By: #### L ACWB #### [facility] [address] [place] [address] GFR,non Amer 38 mL/min Low >60 [facility] Comment on above: Performed By: #### L ACWB #### [facility] [address] [place] [address] Glucose mass conc 95 mg/dL Normal 70-99 [facility] Comment on above: Performed By: #### L ACWB #### [facility] [address] [place] [address] Potassium molar conc 4.5 mmol/L Normal 3.7-5.3 [facility] Comment on above: Performed By: #### L ACWB #### [facility] [employer] [address] [place] [address] Sodium molar conc 133 mmol/L Low 135-144 [facility] Comment on above: Performed By: #### L ACWB #### [facility] [employer] [address] [place] [address] Urea nitrogen mass conc 43 mg/dL High 6-20 [facility] Comment on above: Performed By: #### L ACWB #### [facility] [employer] [address] [place] [address] BUN/CRE Ratio NOT REPORTED Normal - [facility] Comment on above: Performed By: #### L ACWB #### [facility] [employer] [address] [place] [address] Staging: NOT REPORTED Normal [facility] Comment on above: Performed By: #### L ACWB #### [facility] [employer] [address] [place] [address] CBC with Diffon 08-25-2018 Abs. Basophil 0.07 k/uL Normal 0.00-0.20 [facility] Comment on above: Performed By: #### L ACWB #### [facility] [employer] [address] [place] [address] Abs.Imm.Granulocyte 0.08 k/uL Normal 0.00-0.30 [facility] Comment on above: Performed By: #### L ACWB #### [facility] [employer] [address] [place] [address] Abs.Neutrophil (Seg) 5.77 k/uL Normal 1.50-8.10 [facility] Comment on above: Performed By: #### L ACWB #### [facility] [employer] [address] [place] [address] Basophils/100 WBC (Bld) 1 % Normal 0-2 [facility] Comment on above: Performed By: #### L ACWB #### [address] [address] Eosinophils #/vol (Bld) 0.12 10*3/uL Normal 0.00-0.44 [facility] Comment on above: Performed By: #### L ACWB #### [address] [address] Eosinophils/100 WBC (Bld) 1 % Normal 1-4 [facility] Comment on above: Performed By: #### L ACWB #### [address] [address] Immature granulocytes #/vol (Bld) 1 % High 0 [facility] Comment on above: Performed By: #### L ACWB #### [address] [address] Lymphocytes #/vol (Bld) 1.83 10*3/uL Normal 1.10-3.70 [facility] Comment on above: Performed By: #### L ACWB #### [address] [address] Lymphocytes/100 WBC (Bld) 21 % Low 24-43 [facility] Comment on above: Performed By: #### L ACWB #### [address] [address] Monocytes #/vol (Bld) 0.92 10*3/uL Normal 0.10-1.20 [facility] Comment on above: Performed By: #### L ACWB #### [address] [address] Monocytes/100 WBC (Bld) 11 % Normal 3-12 [facility] Comment on above: Performed By: #### L ACWB #### [facility] [employer] [address] [place] [address] Neutrophil (Seg) 66 % High 36-65 [facility] Comment on above: Performed By: #### L ACWB #### [facility] [employer] [address] [place] [address] Erythrocyte distribution width Ratio (RBC) 14.6 % High 11.8-14.4 [facility] Comment on above: Performed By: #### L ACWB #### [facility] [employer] [address] [place] [address] Hematocrit Volume Fraction (Bld) 32.6 % Low 36.3-47.1 [facility] Comment on above: Performed By: #### L ACWB #### [facility] [employer] [address] [place] [address] Hemoglobin mass conc (Bld) 10.0 g/dL Low 11.9-15.1 [facility] Comment on above: Performed By: #### L ACWB #### [address] [address] MCH Entitic mass (RBC) 28.2 pg Normal 25.2-33.5 [facility] Comment on above: Performed By: #### L ACWB #### [facility] [employer] [address] [place] [address] MCHC mass conc (RBC) 30.7 g/dL Normal 28.4-34.8 [facility] Comment on above: Performed By: #### L ACWB #### [facility] [employer] [address] [place] [address] MCV Entitic volume (RBC) 91.8 fL Normal 82.6-102.9 [facility] Comment on above: Performed By: #### L ACWB #### [facility] [employer] [address] [place] [address] NRBC Automated 0.0 per 100 WBC Normal 0.0 [facility] Comment on above: Performed By: #### L ACWB #### [address] [address] Platelet mean volume Entitic volume (Bld) 10.4 fL Normal 8.1-13.5 [facility] Comment on above: Performed By: #### L ACWB #### [address] [address] Platelets #/vol (Bld) 292 10*3/uL Normal 138-453 [facility] Comment on above: Performed By: #### L ACWB #### [address] [address] RBC #/vol (Bld) 3.55 10*6/uL Low 3.95-5.11 [facility] Comment on above: Performed By: #### L ACWB #### [address] [address] RBC morphology finding Nom (Bld) ANISOCYTOSIS PRESENT Normal [facility] Comment on above: Performed By: #### L ACWB #### [address] [address] WBC #/vol (Bld) 8.8 10*3/uL Normal 3.5-11.3 [facility] Comment on above: Performed By: #### L ACWB #### [address] [address] Auto Diff Performed NOT REPORTED Normal [facility] Comment on above: Performed By: #### L ACWB #### [address] [address] Platelets #/vol (Bld) NOT REPORTED Normal [facility] Comment on above: Performed By: #### L ACWB #### [place] [address] [place] [address] WBC Morphology NOT REPORTED Normal [facility] Comment on above: Performed By: #### L ACWB #### [place] [address] [place] [address] Fungi,Direct Examon 08-25-20 18 Fungi,Direct Exam Specimen Description .SPINE .TISSUE T4 LAMINA Special Requests NOT REPORTED Direct Exam NO FUNGAL ELEMENTS SEEN Report Status FINAL 08/25/2018 Normal [facility] Comment on above: Performed By: #### L ACWB #### [address] [address] Magnesiumon 08-25-2018 Magnesium mass conc 2.4 mg/dL Normal 1.6-2.6 [facility] Comment on above: Performed By: #### L ACWB #### [address] [address] Procalcitoninon 08-25-2018 Protein mass conc 0.13 ng/mL High <0.09 [facility] Comment on above: Result Comment: Suspected Sepsis: 0.09-0.49 ng/mL Low likelihood of sepsis. 0.50-2.00 ng/mL Increased likelihood of sepsis. Antibiotics encouraged. >2.00 ng/mL High risk of sepsis/shock. Antibiotics strongly encouraged. Suspected Lower Resp Tract Infections: 0.09-0.24 ng/mL Low likelihood of bacterial infection. >0.24 ng/mL Increased likelihood of bacterial infection. Antibiotics encouraged. With successful antibiotic therapy, PCT levels should decrease rapidly. (Half-life of 24 to 36 hours.) Procalcitonin values from samples collected within the first 6 hours of systemic infection may still be low. Retesting may be indicated. Values from day 1 and day 4 can be entered into the Change in Procalcitonin Calculator (www.irdkjh-mft-ssyzztsbvp.com) to determine the patient's Mortality Risk Prognosis Performed By: #### L ACWB #### [address] [address] Cult,Aerobe/Anaerobeon 08-24 Cult,Aerobe/Anaerobe Specimen Descriptio n .SPINE Special Requests NOT REPORTED Direct Exam DUPLICATE ORDER SEE RESULTS FOR TISSUE CULTURE Culture NOT REPORTED Report Status FINAL 08/24/2018 Normal [facility] Comment on above: Performed By: #### S PAG #### [address] [address] Cult,Aerobe/Anaerobe Specimen Descriptio n .SPINE Special Requests NOT REPORTED Direct Exam DUPLICATE ORDER SEE RESUULTS FOR TISSUE CULTURE Culture NOT REPORTED Report Status FINAL 08/24/2018 Normal [facility] Comment on above: Performed By: #### S PAG #### [address] [address] FLUORO FOR SURGICAL PROCEDUR ESon 08-24-2018 FLUORO FOR SURGICAL PROCEDURES Radiology exam is complete. No Radiologist dictation. Please follow up with ordering provider. Final result Normal [facility] OPERATIVE REPORTon 8 OPERATIVE REPORT [address] [id number] OPERATIVE REPORT PATIENT NAME: CELINA GASPAR : 1980 MED REC NO: [id number] ROOM: [facility] ACCOUNT NO: [id number] ADMIT DATE: 08/15/2018 PROVIDER: Lita Mccray MD DATE OF PROCEDURE: 08/23/2018 SURGEON: Lita Mccray MD [employer] INSTRUCTOR: Eliel Larios DO PREOPERATIVE DIAGNOSIS: Epidural abscess, T3, T4, T5. POSTOPERATIVE DIAGNOSES: Epidural abscess, T3, T4, T5 with chronic granulation, T3, T4, T5. OPERATIONS/PROCEDURES : Decompressive laminectomy, T4, with partial T3 and T5 and decompression of spinal cord and evacuation of chronic inflammatory mass. 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 Due to her significant neural compression, pain across that segment with radiating rib pain, and numbness and tingling across the lower extremities, concern for epidural abscess with posterior fluid collection. Significant edema on MRI imaging identified the mass and counseled her on surgical decompression. The procedure, risks, benefits, and complications were discussed with good comprehension and informed consent obtained. NARRATIVE OF PROCEDURE: The patient was brought into the operating room, placed under appropriate general anesthesia; turned prone onto the Jovanni frame and stabilized and secured. Bony prominences, axilla, and eyes were all protected. Perioperative antibiotics were given prior to incision time. VTE prophylaxis was done intraoperatively through SCD cuffs. The back was prepped and draped in the usual fashion. Time-out was performed. We did a localization x-ray, identifying the level proximally along the T4 segment. This was marked. Skin was incised and down across the segment. We dissected down to the spinous processes, identifying the T3 and T4 spinous processes and the lamina at that space. We placed our Ale retractor. We then elevated on both sides and then did a laminotomy at the T4-T5 interval. This would get us to the bulk of the mass based on imaging. As we burred down with the 3-mm bur, we took the ligamentum flavum down across the segment, and we got to a very fibrous scarred granulation-type mass with no purulence. So, due to the thickened nature, this could not be flushed or irrigated out, so we then did a complete laminectomy of T4. We did an inferior laminotomy of T3 and superior laminectomy of T5. This got us down to the epidural space. We found normal fat proximal up at T3 and then distally got normal dura below. We then were able to gently tease off and peel the fibrous peel off of the dura, continually freeing that up. Epidural bleeders were coagulated with bipolar cautery. There was a significant vascular response in that segment showing more chronic subacute process. So, at this point, all that tissue was sent for cultures along some of the necrotic-appearing bone on T4. We did cut down along the facets at T4 to send that off also as it appeared to show some inflammatory change. Once that was well opened up, we placed a Gelfoam lee over the dura to minimize any scarring. We placed a drain, brought out through proximal stab incision on the right. We then closed the fascia directly in the midline using #1 Vicryl interrupted sutures. Subcutaneous sutures were closed using 0 and 2-0 Vicryl and traci in the skin. The drain was attached. The patient was then transferred to the bed, awoken from anesthesia, and brought to the recovery room in satisfactory condition. LITA MCCRAY MD [id number] Doc#: [id number] CC: Lita Mccray MD [facility] Procalcitoninon 08-24-2018 Protein mass conc 0.16 ng/mL High <0.09 [facility] Comment on above: Result Comment: Suspected Sepsis: 0.09-0.49 ng/mL Low likelihood of sepsis. 0.50-2.00 ng/mL Increased likelihood of sepsis. Antibiotics encouraged. >2.00 ng/mL High risk of sepsis/shock. Antibiotics strongly encouraged. Suspected Lower Resp Tract Infections: 0.09-0.24 ng/mL Low likelihood of bacterial infection. >0.24 ng/mL Increased likelihood of bacterial infection. Antibiotics encouraged. With successful antibiotic therapy, PCT levels should decrease rapidly. (Half-life of 24 to 36 hours.) Procalcitonin values from samples collected within the first 6 hours of systemic infection may still be low. Retesting may be indicated. Values from day 1 and day 4 can be entered into the Change in Procalcitonin Calculator (www.nkfxfs-mqj-iodbgvpnzb.Mangia) to determine the patient's Mortality Risk Prognosis Performed By: #### S PAG #### [facility] [address] [place] [address] Basic Metab w/rfx MGon 08-23 (cont.) [facility] Comment on above: Result Comment: Aver age GFR for 30-39 years old: 107 mL/min/1.73sq m Chronic Kidney Disease: <60 mL/min/1.73sq m Kidney failure: <15 mL/min/1.73sq m eGFR calculated using average adult body mass. Additional eGFR calculator available at: http://www.ProPlan.Mangia/multiple_crcl_2012.htm Performed By: #### S PAG #### [facility] [employer] [address] [place] [address] Anion gap molar conc 14 mmol/L Normal 9-17 [facility] Comment on above: Performed By: #### S PAG #### [facility] [employer] [address] [place] [address] Calcium mass conc 9.9 mg/dL Normal 8.6-10.4 [facility] Comment on above: Performed By: #### S PAG #### [facility] [employer] [address] [place] [address] Chloride molar conc 99 mmol/L Normal 98-107 [facility] Comment on above: Performed By: #### S PAG #### [facility] [employer] [address] [place] [address] CO2 molar conc 26 mmol/L Normal 20-31 [facility] Comment on above: Performed By: #### S PAG #### [facility] [employer] [address] [place] [address] Creatinine mass conc 1.42 mg/dL High 0.50-0.90 [facility] Comment on above: Performed By: #### S PAG #### [facility] [employer] [address] [place] [address] GFR, Amer 50 mL/min Low >60 [facility] Comment on above: Performed By: #### S PAG #### [facility] [employer] [address] [place] [address] GFR,non Amer 41 mL/min Low >60 [facility] Comment on above: Performed By: #### S PAG #### [facility] [employer] [address] [place] [address] Glucose mass conc 95 mg/dL Normal 70-99 [facility] Comment on above: Performed By: #### S PAG #### [facility] [employer] [facility] [place] [address] Potassium molar conc 4.9 mmol/L Normal 3.7-5.3 [facility] Comment on above: Result Comment: SPEC IMEN SLIGHTLY HEMOLYZED, RESULTS MAY BE ADVERSELY AFFECTED. Performed By: #### S PAG #### [facility] [employer] [address] [place] [address] Sodium molar conc 139 mmol/L Normal 135-144 [facility] Comment on above: Performed By: #### S PAG #### [facility] [employer] [address] [place] [address] Urea nitrogen mass conc 31 mg/dL High - [facility] Comment on above: Performed By: #### S PAG #### [address] [address] BUN/CRE Ratio NOT REPORTED Normal - [facility] Comment on above: Performed By: #### S PAG #### [address] [address] Staging: NOT REPORTED Normal [facility] Comment on above: Performed By: #### S PAG #### [address] [address] CBC with Diffon 08-23-2018 Abs. Basophil 0.06 k/uL Normal 0.00-0.20 [facility] Comment on above: Performed By: #### S PAG #### [facility] [employer] [address] [place] [address] Abs.Imm.Granulocyte 0.22 k/uL Normal 0.00-0.30 [facility] Comment on above: Performed By: #### S PAG #### [address] [address] Abs.Neutrophil (Seg) 4.43 k/uL Normal 1.50-8.10 [facility] Comment on above: Performed By: #### S PAG #### [address] [address] Basophils/100 WBC (Bld) 1 % Normal 0-2 [facility] Comment on above: Performed By: #### S PAG #### [address] [address] Eosinophils #/vol (Bld) 0.15 10*3/uL Normal 0.00-0.44 [facility] Comment on above: Performed By: #### S PAG #### [address] [address] Eosinophils/100 WBC (Bld) 2 % Normal 1-4 [facility] Comment on above: Performed By: #### S PAG #### [address] [address] Erythrocyte distribution width Ratio (RBC) 14.4 % Normal 11.8-14.4 [facility] Comment on above: Performed By: #### S PAG #### [address] [address] Hematocrit Volume Fraction (Bld) 33.2 % Low 36.3-47.1 [facility] Comment on above: Performed By: #### S PAG #### [address] [address] Hemoglobin mass conc (Bld) 10.4 g/dL Low 11.9-15.1 [facility] Comment on above: Performed By: #### S PAG #### [address] [address] Immature granulocytes #/vol (Bld) 3 % High 0 [facility] Comment on above: Performed By: #### S PAG #### [address] [address] Lymphocytes #/vol (Bld) 2.22 10*3/uL Normal 1.10-3.70 [facility] Comment on above: Performed By: #### S PAG #### [address] [address] Lymphocytes/100 WBC (Bld) 29 % Normal 24-43 [facility] Comment on above: Performed By: #### S PAG #### [address] [address] MCH Entitic mass (RBC) 27.7 pg Normal 25.2-33.5 [facility] Comment on above: Performed By: #### S PAG #### [address] [address] MCHC mass conc (RBC) 31.3 g/dL Normal 28.4-34.8 [facility] Comment on above: Performed By: #### S PAG #### [address] [address] MCV Entitic volume (RBC) 88.3 fL Normal 82.6-102.9 [facility] Comment on above: Performed By: #### S PAG #### [address] [address] Monocytes #/vol (Bld) 0.63 10*3/uL Normal 0.10-1.20 [facility] Comment on above: Performed By: #### S PAG #### [address] [address] Monocytes/100 WBC (Bld) 8 % Normal 3-12 [facility] Comment on above: Performed By: #### S PAG #### [address] [address] Neutrophil (Seg) 57 % Normal 36-65 [facility] Comment on above: Performed By: #### S PAG #### [address] [address] NRBC Automated 0.0 per 100 WBC Normal 0.0 [facility] Comment on above: Performed By: #### S PAG #### [address] [address] Platelets #/vol (Bld) See Reflexed IPF Result Normal 138-453 [facility] Comment on above: Performed By: #### S PAG #### [address] [address] RBC #/vol (Bld) 3.76 10*6/uL Low 3.95-5.11 [facility] Comment on above: Performed By: #### S PAG #### [address] [address] WBC #/vol (Bld) 7.7 10*3/uL Normal 3.5-11.3 [facility] Comment on above: Performed By: #### S PAG #### [address] [address] Auto Diff Performed NOT REPORTED Normal [facility] Comment on above: Performed By: #### S PAG #### [address] [address] Platelet mean volume Entitic volume (Bld) NOT REPORTED Normal 8.1-13.5 [facility] Comment on above: Performed By: #### S PAG #### [address] [address] Platelets #/vol (Bld) NOT REPORTED Normal [facility] Comment on above: Performed By: #### S PAG #### [address] [address] RBC morphology finding Nom (Bld) NOT REPORTED Normal [facility] Comment on above: Performed By: #### S PAG #### [address] [address] WBC Morphology NOT REPORTED Normal [facility] Comment on above: Performed By: #### S PAG #### [address] [address] Cult,Bloodon 08-23-2018 Cult,Blood Specimen Description .BLOOD Special Requests L AC 6ML Culture NO GROWTH 6 DAYS Report Status FINAL 08/23/2018 Normal [facility] Comment on above: Performed By: #### S PAG #### [address] [address] Cult,Blood Specimen Description .BLOOD Special Requests L FOREARM 6ML Culture NO GROWTH 6 DAYS Report Status FINAL 08/23/2018 Normal [facility] Comment on above: Performed By: #### S PAG #### [address] [address] PLT, Immature Fract.on 08-23 Platelet, Fluoresc. 113 k/uL Low 138-453 [facility] Comment on above: Performed By: #### S PAG #### [address] [address] PLT, Immature Fract. 3.7 % Normal 1.1-10.3 [facility] Comment on above: Performed By: #### S PAG #### [address] [address] CBC with Diffon 08-22-2018 Abs. Basophil 0.00 k/uL Normal 0.0-0.2 [facility] Comment on above: Performed By: #### U LAG #### [address] [address] Abs.Imm.Granulocyte 0.30 k/uL Normal 0.00-0.30 [facility] Comment on above: Performed By: #### U LAG #### [address] [address] Abs.Neutrophil (Seg) 4.87 k/uL Normal 1.8-7.7 [facility] Comment on above: Performed By: #### U LAG #### [address] [address] Basophils/100 WBC (Bld) 0 % Normal 0-2 [facility] Comment on above: Performed By: #### U LAG #### [address] [address] Eosinophils #/vol (Bld) 0.00 10*3/uL Normal 0.0-0.4 [facility] Comment on above: Performed By: #### U LAG #### [address] [address] Eosinophils/100 WBC (Bld) 0 % Low 1-4 [facility] Comment on above: Performed By: #### U LAG #### [address] [address] Immature granulocytes #/vol (Bld) 4 % High 0 [facility] Comment on above: Performed By: #### U LAG #### [address] [address] Lymphocytes #/vol (Bld) 1.88 10*3/uL Normal 1.0-4.8 [facility] Comment on above: Performed By: #### U LAG #### [address] [address] Lymphocytes/100 WBC (Bld) 25 % Normal 24-44 [facility] Comment on above: Performed By: #### U LAG #### [address] [address] Monocytes #/vol (Bld) 0.45 10*3/uL Normal 0.1-0.8 [facility] Comment on above: Performed By: #### U LAG #### [facility] [employer] [address] [place] [address] Monocytes/100 WBC (Bld) 6 % Normal 1-7 [facility] Comment on above: Performed By: #### U LAG #### [facility] [employer] [address] [place] [address] Morphology Interp Rehan (Bld) ANISOCYTOSIS PRESENT Normal [facility] Comment on above: Performed By: #### U LAG #### [facility] [employer] [address] [place] [address] Neutrophil (Seg) 65 % Normal 36-66 [facility] Comment on above: Performed By: #### U LAG #### [facility] [employer] [address] [place] [address] Erythrocyte distribution width Ratio (RBC) 14.5 % High 11.8-14.4 [facility] Comment on above: Performed By: #### U LAG #### [facility] [employer] [address] [place] [address] Hematocrit Volume Fraction (Bld) 38.1 % Normal 36.3-47.1 [facility] Comment on above: Performed By: #### U LAG #### [facility] [employer] [address] [place] [address] Hemoglobin mass conc (Bld) 11.5 g/dL Low 11.9-15.1 [facility] Comment on above: Performed By: #### U LAG #### [facility] [employer] [address] [place] [address] MCH Entitic mass (RBC) 28.3 pg Normal 25.2-33.5 [facility] Comment on above: Performed By: #### U LAG #### [address] [address] MCHC mass conc (RBC) 30.2 g/dL Normal 28.4-34.8 [facility] Comment on above: Performed By: #### U LAG #### [address] [address] MCV Entitic volume (RBC) 93.6 fL Normal 82.6-102.9 [facility] Comment on above: Performed By: #### U LAG #### [address] [address] NRBC Automated 0.0 per 100 WBC Normal 0.0 [facility] Comment on above: Performed By: #### U LAG #### [address] [address] Platelet mean volume Entitic volume (Bld) 10.7 fL Normal 8.1-13.5 [facility] Comment on above: Performed By: #### U LAG #### [address] [address] Platelets #/vol (Bld) 265 10*3/uL Normal 138-453 [facility] Comment on above: Performed By: #### U LAG #### [address] [address] RBC #/vol (Bld) 4.07 10*6/uL Normal 3.95-5.11 [facility] Comment on above: Performed By: #### U LAG #### [address] [address] WBC #/vol (Bld) 7.5 10*3/uL Normal 3.5-11.3 [facility] Comment on above: Performed By: #### U LAG #### [address] [address] Auto Diff Performed NOT REPORTED Normal [facility] Comment on above: Performed By: #### U LAG #### [address] [address] Platelets #/vol (Bld) NOT REPORTED Normal [facility] Comment on above: Performed By: #### U LAG #### [facility] [employer] [address] [place] [address] RBC morphology finding Nom (Bld) NOT REPORTED Normal [facility] Comment on above: Performed By: #### U LAG #### [facility] [employer] [address] [place] [address] WBC Morphology NOT REPORTED Normal [facility] Comment on above: Performed By: #### U LAG #### [address] [address] Comp Metabolic Pr/rfx MGon 1 10-22-2017 Albumin mass conc 3.2 g/dL Low 3.5-5.2 [facility] Comment on above: Performed By: #### U LAG #### [facility] [employer] [address] [place] [address] Albumin/Globulin mass ratio 0.8 {ratio} Low 1.0-2.5 [facility] Comment on above: Performed By: #### U LAG #### [facility] [employer] [address] [place] [address] Alkaline Phos 90 U/L Normal 35-104 [facility] Comment on above: Performed By: #### U LAG #### [facility] [employer] [address] [place] [address] ALT enzyme act/vol 18 U/L Normal 5-33 [facility] Comment on above: Performed By: #### U LAG #### [facility] [employer] [address] [place] [address] AST enzyme act/vol 16 U/L Normal <32 [facility] Comment on above: Performed By: #### U LAG #### [employer] [facility] [place] [address] Protein mass conc 7.0 g/dL Normal 6.4-8.3 [facility] Comment on above: Performed By: #### U LAG #### [employer] [address] [place] [address] (cont.) Normal [facility] Comment on above: Result Comment: Aver age GFR for 30-39 years old: 107 mL/min/1.73sq m Chronic Kidney Disease: <60 mL/min/1.73sq m Kidney failure: <15 mL/min/1.73sq m eGFR calculated using average adult body mass. Additional eGFR calculator available at: http://www.GHash.IO/multiple_crcl_2012.htm Performed By: #### U LAG #### [employer] [address] [place] [address] Anion gap molar conc 15 mmol/L Normal 9-17 [facility] Comment on above: Performed By: #### U LAG #### [employer] [address] [place] [address] Bilirubin Ql (U) 0.34 mg/dL Normal 0.3-1.2 [facility] Comment on above: Performed By: #### U LAG #### [employer] [address] [place] [address] Calcium mass conc 9.7 mg/dL Normal 8.6-10.4 [facility] Comment on above: Performed By: #### U LAG #### [employer] [address] [place] [address] Chloride molar conc 100 mmol/L Normal 98-107 [facility] Comment on above: Performed By: #### U LAG #### [employer] [facility] [place] [address] CO2 molar conc 24 mmol/L Normal 20-31 [facility] Comment on above: Performed By: #### U LAG #### [facility] [employer] [address] [place] [address] Creatinine mass conc 1.02 mg/dL High 0.50-0.90 [facility] Comment on above: Performed By: #### U LAG #### [facility] [employer] [address] [place] [address] GFR, Amer >60 Normal >60 [facility] Comment on above: Performed By: #### U LAG #### [facility] [employer] [address] [place] [address] GFR,non Amer >60 Normal >60 [facility] Comment on above: Performed By: #### U LAG #### [facility] [employer] [address] [place] [address] Glucose mass conc 101 mg/dL High 70-99 [facility] Comment on above: Performed By: #### U LAG #### [facility] [employer] [address] [place] [address] Potassium molar conc 4.5 mmol/L Normal 3.7-5.3 [facility] Comment on above: Performed By: #### U LAG #### [facility] [employer] [address] [place] [address] Sodium molar conc 139 mmol/L Normal 135-144 [facility] Comment on above: Performed By: #### U LAG #### [facility] [employer] [address] [place] [address] Urea nitrogen mass conc 19 mg/dL Normal 6-20 [facility] Comment on above: Performed By: #### U LAG #### [facility] [employer] [address] [place] [address] BUN/CRE Ratio NOT REPORTED Normal - [facility] Comment on above: Performed By: #### U LAG #### [address] [address] Staging: NOT REPORTED Normal [facility] Comment on above: Performed By: #### U LAG #### [facility] [employer] [address] [place] [address] Magnesiumon 08-22-2018 Magnesium mass conc 2.4 mg/dL Normal 1.6-2.6 [facility] Comment on above: Performed By: #### U LAG #### [facility] [employer] [address] [place] [address] Vancomycin Troughon 08-22-20 18 Vancomycin Trough 20.2 ug/mL Critically high 10.0-20.0 [facility] Comment on above: Result Comment: High er trough serum vancomycin concentrations of 15-20 ug/mL are recommended for complicated infections such as bacteremia, endocarditis, osteomyelitis, meningitis, and hospital acquired pneumonia. ADDED ON Performed By: #### U LAG #### [facility] [employer] [address] [place] [address] Date last dose, NOT REPORTED Normal [facility] Comment on above: Performed By: #### U LAG #### [facility] [employer] [address] [place] [address] Dose amount, NOT REPORTED Normal [facility] Comment on above: Performed By: #### U LAG #### [facility] [employer] [address] [place] [address] Time last dose, NOT REPORTED Normal [facility] Comment on above: Performed By: #### U LAG #### [facility] [employer] [address] [place] [address] CBC with Diffon 08-21-2018 Abs. Basophil 0.08 k/uL Normal 0.00-0.20 [facility] Comment on above: Performed By: #### U LAG #### [address] [address] Abs.Imm.Granulocyte 0.50 k/uL High 0.00-0.30 [facility] Comment on above: Performed By: #### U LAG #### [address] [address] Abs.Neutrophil (Seg) 4.73 k/uL Normal 1.50-8.10 [facility] Comment on above: Performed By: #### U LAG #### [address] [address] Basophils/100 WBC (Bld) 1 % Normal 0-2 [facility] Comment on above: Performed By: #### U LAG #### [address] [address] Eosinophils #/vol (Bld) 0.17 10*3/uL Normal 0.00-0.44 [facility] Comment on above: Performed By: #### U LAG #### [address] [address] Eosinophils/100 WBC (Bld) 2 % Normal 1-4 [facility] Comment on above: Performed By: #### U LAG #### [address] [address] Immature granulocytes #/vol (Bld) 6 % High 0 [facility] Comment on above: Performed By: #### U LAG #### [address] [address] Lymphocytes #/vol (Bld) 2.24 10*3/uL Normal 1.10-3.70 [facility] Comment on above: Performed By: #### U LAG #### [address] [address] Lymphocytes/100 WBC (Bld) 27 % Normal 24-43 [facility] Comment on above: Performed By: #### U LAG #### [facility] [employer] [address] [place] [address] 55612 Monocytes #/vol (Bld) 0.58 10*3/uL Normal 0.10-1.20 [facility] Comment on above: Performed By: #### U LAG #### [facility] [employer] [address] [place] [address] 85584 Monocytes/100 WBC (Bld) 7 % Normal 3-12 [facility] Comment on above: Performed By: #### U LAG #### [facility] [employer] [address] [place] [address] 07172 Morphology Interp Rehan (Bld) ANISOCYTOSIS PRESENT Normal [facility] Comment on above: Performed By: #### U LAG #### [facility] [employer] [address] [place] [address] 65459 Neutrophil (Seg) 57 % Normal 36-65 [facility] Comment on above: Performed By: #### U LAG #### [facility] [employer] [address] [place] [address] 45718 Erythrocyte distribution width Ratio (RBC) 14.6 % High 11.8-14.4 [facility] Comment on above: Performed By: #### U LAG #### [facility] [employer] [address] [place] [address] 82716 Hematocrit Volume Fraction (Bld) 38.5 % Normal 36.3-47.1 [facility] Comment on above: Performed By: #### U LAG #### [facility] [employer] [address] [place] [address] 17530 Hemoglobin mass conc (Bld) 11.5 g/dL Low 11.9-15.1 [facility] Comment on above: Performed By: #### U LAG #### [address] [address] MCH Entitic mass (RBC) 28.2 pg Normal 25.2-33.5 [facility] Comment on above: Performed By: #### U LAG #### [address] 11387 MCHC mass conc (RBC) 29.9 g/dL Normal 28.4-34.8 [facility] Comment on above: Performed By: #### U LAG #### [address] [address]455 MCV Entitic volume (RBC) 94.4 fL Normal 82.6-102.9 [facility] Comment on above: Performed By: #### U LAG #### [address] [address] NRBC Automated 0.0 per 100 WBC Normal 0.0 [facility] Comment on above: Performed By: #### U LAG #### [address] [address] Platelet mean volume Entitic volume (Bld) 10.5 fL Normal 8.1-13.5 [facility] Comment on above: Performed By: #### U LAG #### [address] 67969 Platelets #/vol (Bld) 264 10*3/uL Normal 138-453 [facility] Comment on above: Performed By: #### U LAG #### [address] [address] RBC #/vol (Bld) 4.08 10*6/uL Normal 3.95-5.11 [facility] Comment on above: Performed By: #### U LAG #### [address] [address] WBC #/vol (Bld) 8.3 10*3/uL Normal 3.5-11.3 [facility] Comment on above: Performed By: #### U LAG #### [facility] [employer] [address] [place] [address] 77736 Auto Diff Performed NOT REPORTED Normal [facility] Comment on above: Performed By: #### U LAG #### [facility] [employer] [address] [place] [address] 08114 Platelets #/vol (Bld) NOT REPORTED Normal [facility] Comment on above: Performed By: #### U LAG #### [facility] [employer] [address] [place] [address] 15933 RBC morphology finding Nom (Bld) NOT REPORTED Normal [facility] Comment on above: Performed By: #### U LAG #### [facility] [employer] [address] [place] [address] 45518 WBC Morphology NOT REPORTED Normal [facility] Comment on above: Performed By: #### U LAG #### [facility] [employer] [address] [place] [address] 92687 Comp Metabolic Pr/rfx MGon 1 10-21-2017 (cont.) Normal [facility] Comment on above: Result Comment: Aver age GFR for 30-39 years old: 107 mL/min/1.73sq m Chronic Kidney Disease: <60 mL/min/1.73sq m Kidney failure: <15 mL/min/1.73sq m eGFR calculated using average adult body mass. Additional eGFR calculator available at: http://www.ProPlan.com/multiple_crcl_2012.htm Performed By: #### U LAG #### [facility] [employer] [address] [place] [address] 13640 Albumin mass conc 2.9 g/dL Low 3.5-5.2 [facility] Comment on above: Performed By: #### U LAG #### [employer] [address] [place] [address] Albumin/Globulin mass ratio 0.7 {ratio} Low 1.0-2.5 [facility] Comment on above: Performed By: #### U LAG #### [employer] [address] [place] [address] Alkaline Phos 98 U/L Normal 35-104 [facility] Comment on above: Performed By: #### U LAG #### [employer] [facility] [place] [address] ALT enzyme act/vol 19 U/L Normal 5-33 [facility] Comment on above: Performed By: #### U LAG #### [facility] [place] [address] Anion gap molar conc 14 mmol/L Normal 9-17 [facility] Comment on above: Performed By: #### U LAG #### [employer] [facility] [place] [address] AST enzyme act/vol 21 U/L Normal <32 [facility] Comment on above: Performed By: #### U LAG #### [facility] [place] [address] Bilirubin Ql (U) 0.32 mg/dL Normal 0.3-1.2 [facility] Comment on above: Performed By: #### U LAG #### [employer] [facility] [place] [address] Calcium mass conc 9.1 mg/dL Normal 8.6-10.4 [facility] Comment on above: Performed By: #### U LAG #### [employer] [facility] [place] [address] Chloride molar conc 102 mmol/L Normal 98-107 [facility] Comment on above: Performed By: #### U LAG #### [employer] [facility] [place] [address] CO2 molar conc 23 mmol/L Normal 20-31 [facility] Comment on above: Performed By: #### U LAG #### [facility] [address] [place] [address] 07359 Creatinine mass conc 0.90 mg/dL Normal 0.50-0.90 [facility] Comment on above: Performed By: #### U LAG #### [facility] [address] [place] [address] 95083 GFR, Amer >60 Normal >60 [facility] Comment on above: Performed By: #### U LAG #### [facility] [address] [place] [address] 17407 GFR,non Amer >60 Normal >60 [facility] Comment on above: Performed By: #### U LAG #### [facility] [employer] [address] [place] [address] 08969 Glucose mass conc 108 mg/dL High 70-99 [facility] Comment on above: Performed By: #### U LAG #### [facility] [employer] [address] [place] [address] 29561 Potassium molar conc 4.6 mmol/L Normal 3.7-5.3 [facility] Comment on above: Performed By: #### U LAG #### [facility] [address] [place] [address] 86554 Protein mass conc 6.9 g/dL Normal 6.4-8.3 [facility] Comment on above: Performed By: #### U LAG #### [facility] [employer] [address] [place] [address] 31884 Sodium molar conc 139 mmol/L Normal 135-144 [facility] Comment on above: Performed By: #### U LAG #### [facility] [address] [place] [address] 64398 Urea nitrogen mass conc 17 mg/dL Normal 6-20 [facility] Comment on above: Performed By: #### U LAG #### [facility] [employer] [address] [place] [address] 38592 BUN/CRE Ratio NOT REPORTED Normal 9-20 [facility] Comment on above: Performed By: #### U LAG #### [employer] [address] [place] [address] 74662 Staging: NOT REPORTED Normal [facility] Comment on above: Performed By: #### U LAG #### [facility] [employer] [address] [place] [address] 81995 Cult,Bloodon 08-21-2018 Cult,Blood Specimen Description .BLOOD Special Requests L AC 20ML Culture POSITIVE Blood Culture CALLED TO MIS Medina [phone] [id number] DIRECT GRAM STAIN FROM BOTTLE: GRAM POSITIVE COCCI IN CLUSTERS METHICILLIN RESISTANT STAPHYLOCOCCUS AUREUS For susceptibility, refer to previous culture. Report Status FINAL 08/21/2018 Normal [facility] Comment on above: Performed By: #### U LAG #### [address] [address] MRI FOOT LEFT W WO CONTRASTo n 08-21-2018 MRI FOOT LEFT W WO CONTRAST EXAMINATION: MRI OF THE LEFT FOOT WITH AND WITHOUT CONTRAST, 08/21/2018 10:35 am TECHNIQUE: Multiplanar multisequence MRI of the left foot was performed with and without the administration of intravenous contrast. COMPARISON: Left foot plain radiographs from 08/20/2018. HISTORY: ORDERING SYSTEM PROVIDED HISTORY: BONE PAIN, FOOT 38-year-old female with left foot pain. FINDINGS: LISFRANC JOINT: Lisfranc ligament complex appears grossly intact. BONE MARROW: Osseous alignment is normal. No marginal erosions. No acute fracture or gross dislocation. Marrow edema is seen within the proximal 2nd through 5th metatarsals, cuboid, middle and lateral cuneiforms centered about the tarsal metatarsal joints. Mild marrow edema is seen in the inferior navicular. There is mild corresponding low T1 signal and postcontrast enhancement in these areas of high STIR signal. No aggressive osseous destruction is evident. GREATER AND LESSER MTP JOINTS: Mild degenerative change at the 1st MTP/MTS joints. SOFT TISSUES: Mild to moderate diffuse edema throughout the visualized intertarsal musculature. Moderate edema throughout the dorsal/lateral aspect of the left forefoot. There is post contrast enhancement in the soft tissues surrounding the tarsal metatarsal joints primarily the 2nd through 5th tarsal metatarsal joints. No soft tissue ulceration is identified. Preservation of the sinus tarsi fat. No discrete organized fluid collection or abscess formation identified within the visualized soft tissues. TENDONS: Visualized peroneal, flexor, and extensor tendons appear grossly intact without evidence of tearing or tenosynovitis. IMPRESSION: 1. No discrete abscess formation identified. 2. Signal changes in post contrast enhancement in the soft tissues and centered about the 2nd through 5th tarsal metatarsal joints can be seen with infection/osteomyelit is from a hematogenous source in the appropriate clinical setting. No adjacent ulceration is identified to suggest a direct contiguous source. 3. Avid myositis of the soft tissues surrounding the 2nd through 5th tarsal metatarsal joints. Myositis of the remaining intertarsal musculature also noted. 4. Moderate cellulitis of the forefoot primarily at the dorsal/lateral left forefoot. 5. Mild degenerative changes of the 1st MTP/MTS joints. The findings were sent to the Radiology Results Communication Center at 10:52 am on 08/21/2018to be communicated to a licensed caregiver. Interpreted by: Murali Goff MD Signed by: Murali Goff MD 08/21/18 Final result Normal [facility] Magnesiumon 08-21-2018 Magnesium mass conc 2.4 mg/dL Normal 1.6-2.6 [facility] Comment on above: Performed By: #### U LAG #### [facility] [employer] [address] [place], [place] [phone] Procalcitoninon 08-21-2018 Protein mass conc 0.27 ng/mL High <0.09 [facility] Comment on above: Result Comment: Suspected Sepsis: 0.09-0.49 ng/mL Low likelihood of sepsis. 0.50-2.00 ng/mL Increased likelihood of sepsis. Antibiotics encouraged. >2.00 ng/mL High risk of sepsis/shock. Antibiotics strongly encouraged. Suspected Lower Resp Tract Infections: 0.09-0.24 ng/mL Low likelihood of bacterial infection. >0.24 ng/mL Increased likelihood of bacterial infection. Antibiotics encouraged. With successful antibiotic therapy, PCT levels should decrease rapidly. (Half-life of 24 to 36 hours.) Procalcitonin values from samples collected within the first 6 hours of systemic infection may still be low. Retesting may be indicated. Values from day 1 and day 4 can be entered into the Change in Procalcitonin Calculator ([email or web address]) to determine the patient's Mortality Risk Prognosis Performed By: #### U LAG #### [facility] [employer] [address] [place] [address] 36168 C-Reactive Proteinon 018 CRP mass conc 50.4 mg/L High 0.0-5.0 [facility] Comment on above: Performed By: #### L ACDS, TROPI, PRCAL, MYCM #### [employer] [address] [place] [address] 68163 CBC with Diffon 08-20-2018 Abs. Basophil 0.08 k/uL Normal 0.0-0.2 [facility] Comment on above: Performed By: #### L ACDS, TROPI, PRCAL, MYCM #### [employer] [address] [place] [address] 31463 Abs.Imm.Granulocyte 0.42 k/uL High 0.00-0.30 [facility] Comment on above: Performed By: #### L ACDS, TROPI, PRCAL, MYCM #### [employer] [address] [place] [address] 18246 Abs.Neutrophil (Seg) 4.57 k/uL Normal 1.8-7.7 [facility] Comment on above: Performed By: #### L ACDS, TROPI, PRCAL, MYCM #### [employer] [address] [place] [address] 03537 Basophils/100 WBC (Bld) 1 % Normal 0-2 [facility] Comment on above: Performed By: #### L ACDS, TROPI, PRCAL, MYCM #### [address] [address] Eosinophils #/vol (Bld) 0.25 10*3/uL Normal 0.0-0.4 [facility] Comment on above: Performed By: #### L ACDS, TROPI, PRCAL, MYCM #### [facility] [employer] [address] [place] [address] 08489 Eosinophils/100 WBC (Bld) 3 % Normal 1-4 [facility] Comment on above: Performed By: #### L ACDS, TROPI, PRCAL, MYCM #### [address] [address] Immature granulocytes #/vol (Bld) 5 % High 0 [facility] Comment on above: Performed By: #### L ACDS, TROPI, PRCAL, MYCM #### [address] 8[address] Lymphocytes #/vol (Bld) 2.32 10*3/uL Normal 1.0-4.8 [facility] Comment on above: Performed By: #### L ACDS, TROPI, PRCAL, MYCM #### [address] 47097 Lymphocytes/100 WBC (Bld) 28 % Normal 24-44 [facility] Comment on above: Performed By: #### L ACDS, TROPI, PRCAL, MYCM #### [address] [address] Monocytes #/vol (Bld) 0.66 10*3/uL Normal 0.1-0.8 [facility] Comment on above: Performed By: #### L ACDS, TROPI, PRCAL, MYCM #### [facility] [employer] [address] [place] [address] 75830 Monocytes/100 WBC (Bld) 8 % High 1-7 [facility] Comment on above: Performed By: #### L ACDS, TROPI, PRCAL, MYCM #### [facility] [employer] [address] [place] [address] 49671 Morphology Interp Rehan (Bld) ANISOCYTOSIS PRESENT Normal [facility] Comment on above: Performed By: #### L ACDS, TROPI, PRCAL, MYCM #### [facility] [employer] [address] [place] [address] 23780 Neutrophil (Seg) 55 % Normal 36-66 [facility] Comment on above: Performed By: #### L ACDS, TROPI, PRCAL, MYCM #### [facility] [employer] [address] [place] [address] 09631 Erythrocyte distribution width Ratio (RBC) 14.6 % High 11.8-14.4 [facility] Comment on above: Performed By: #### L ACDS, TROPI, PRCAL, MYCM #### [facility] [employer] [address] [place] [address] 37109 Hematocrit Volume Fraction (Bld) 33.5 % Low 36.3-47.1 [facility] Comment on above: Performed By: #### L ACDS, TROPI, PRCAL, MYCM #### [facility] [employer] [address] [place] [address] 98916 Hemoglobin mass conc (Bld) 10.2 g/dL Low 11.9-15.1 [facility] Comment on above: Performed By: #### L ACDS, TROPI, PRCAL, MYCM #### [facility] [employer] [address] [place] [address] 43295 MCH Entitic mass (RBC) 27.9 pg Normal 25.2-33.5 [facility] Comment on above: Performed By: #### L ACDS, TROPI, PRCAL, MYCM #### [address] [address]854 MCHC mass conc (RBC) 30.4 g/dL Normal 28.4-34.8 [facility] Comment on above: Performed By: #### L ACDS, TROPI, PRCAL, MYCM #### [address] [address]182 MCV Entitic volume (RBC) 91.5 fL Normal 82.6-102.9 [facility] Comment on above: Performed By: #### L ACDS, TROPI, PRCAL, MYCM #### [address] [address] NRBC Automated 0.0 per 100 WBC Normal 0.0 [facility] Comment on above: Performed By: #### L ACDS, TROPI, PRCAL, MYCM #### [address] [address]498 Platelet mean volume Entitic volume (Bld) 11.0 fL Normal 8.1-13.5 [facility] Comment on above: Performed By: #### L ACDS, TROPI, PRCAL, MYCM #### [address] 9[address]27 Platelets #/vol (Bld) 211 10*3/uL Normal 138-453 [facility] Comment on above: Performed By: #### L ACDS, TROPI, PRCAL, MYCM #### [address] [address] RBC #/vol (Bld) 3.66 10*6/uL Low 3.95-5.11 [facility] Comment on above: Performed By: #### L ACDS, TROPI, PRCAL, MYCM #### [address] [address] WBC #/vol (Bld) 8.3 10*3/uL Normal 3.5-11.3 [facility] Comment on above: Performed By: #### L ACDS, TROPI, PRCAL, MYCM #### [address] 29908 Auto Diff Performed NOT REPORTED Normal [facility] Comment on above: Performed By: #### L ACDS, TROPI, PRCAL, MYCM #### [address] [address] Platelets #/vol (Bld) NOT REPORTED Normal [facility] Comment on above: Performed By: #### L ACDS, TROPI, PRCAL, MYCM #### [address] [address] RBC morphology finding Nom (Bld) NOT REPORTED Normal [facility] Comment on above: Performed By: #### L ACDS, TROPI, PRCAL, MYCM #### [address] [address] WBC Morphology NOT REPORTED Normal [facility] Comment on above: Performed By: #### L ACDS, TROPI, PRCAL, MYCM #### [address] [address] Comp Metabolic Pr/rfx MGon 1 10-20-2017 (cont.) Normal [facility] Comment on above: Result Comment: Aver age GFR for 30-39 years old: 107 mL/min/1.73sq m Chronic Kidney Disease: <60 mL/min/1.73sq m Kidney failure: <15 mL/min/1.73sq m eGFR calculated using average adult body mass. Additional eGFR calculator available at: http://www.ProPlan.Mangia/multiple_crcl_2011.htm Performed By: #### L ACDS, TROPI, PRCAL, MYCM #### [facility] [employer] [address] [place] [address] 87672 Albumin mass conc 3.1 g/dL Low 3.5-5.2 [facility] Comment on above: Performed By: #### L ACDS, TROPI, PRCAL, MYCM #### [facility] [employer] [address] [place] [address] 70223 Albumin/Globulin mass ratio 0.9 {ratio} Low 1.0-2.5 [facility] Comment on above: Performed By: #### L ACDS, TROPI, PRCAL, MYCM #### [facility] [employer] [address] [place] [address] 22164 Alkaline Phos 83 U/L Normal 35-104 [facility] Comment on above: Performed By: #### L ACDS, TROPI, PRCAL, MYCM #### [facility] [employer] [address] [place] [address] 04273 ALT enzyme act/vol 17 U/L Normal 5-33 [facility] Comment on above: Performed By: #### L ACDS, TROPI, PRCAL, MYCM #### [facility] [employer] [address] [place] [address] 76085 Anion gap molar conc 11 mmol/L Normal 9-17 [facility] Comment on above: Performed By: #### L ACDS, TROPI, PRCAL, MYCM #### [facility] [employer] [address] [place] [address] 06052 AST enzyme act/vol 18 U/L Normal <32 [facility] Comment on above: Performed By: #### L ACDS, TROPI, PRCAL, MYCM #### [facility] [employer] [address] [place] [address] 87751 Bilirubin Ql (U) 0.29 mg/dL Low 0.3-1.2 [facility] Comment on above: Performed By: #### L ACDS, TROPI, PRCAL, MYCM #### [facility] [employer] [address] [place] [address] 90521 Calcium mass conc 9.0 mg/dL Normal 8.6-10.4 [facility] Comment on above: Performed By: #### L ACDS, TROPI, PRCAL, MYCM #### [facility] [employer] [address] [place] [address] 30900 Chloride molar conc 101 mmol/L Normal 98-107 [facility] Comment on above: Performed By: #### L ACDS, TROPI, PRCAL, MYCM #### [facility] [employer] [address] [place] [address] 72551 CO2 molar conc 27 mmol/L Normal 20-31 [facility] Comment on above: Performed By: #### L ACDS, TROPI, PRCAL, MYCM #### [facility] [employer] [address] [place] [address] 85279 Creatinine mass conc 0.97 mg/dL High 0.50-0.90 [facility] Comment on above: Performed By: #### L ACDS, TROPI, PRCAL, MYCM #### [facility] [address] [place] [address] 88786 GFR, Amer >60 Normal >60 [facility] Comment on above: Performed By: #### L ACDS, TROPI, PRCAL, MYCM #### [facility] [address] [place] [address] 74144 GFR,non Amer >60 Normal >60 [facility] Comment on above: Performed By: #### L ACDS, TROPI, PRCAL, MYCM #### [facility] [address] [place] [address] 06689 Glucose mass conc 105 mg/dL High 70-99 [facility] Comment on above: Performed By: #### L ACDS, TROPI, PRCAL, MYCM #### [facility] [employer] [address] [place] [address] 23991 Potassium molar conc 4.4 mmol/L Normal 3.7-5.3 [facility] Comment on above: Performed By: #### L ACDS, TROPI, PRCAL, MYCM #### [facility] [employer] [address] [place] [address] 65120 Protein mass conc 6.6 g/dL Normal 6.4-8.3 [facility] Comment on above: Performed By: #### L ACDS, TROPI, PRCAL, MYCM #### [facility] [employer] [address] [place] [address] 24915 Sodium molar conc 139 mmol/L Normal 135-144 [facility] Comment on above: Performed By: #### L ACDS, TROPI, PRCAL, MYCM #### [facility] [employer] [address] [place] [address] 80679 Urea nitrogen mass conc 15 mg/dL Normal 6-20 [facility] Comment on above: Performed By: #### L ACDS, TROPI, PRCAL, MYCM #### [facility] [employer] [address] [place] [address] 77142 BUN/CRE Ratio NOT REPORTED Normal -20 [facility] Comment on above: Performed By: #### L ACDS, TROPI, PRCAL, MYCM #### [facility] [employer] [address] [place] [address] 88433 Staging: NOT REPORTED Normal [facility] Comment on above: Performed By: #### L ACDS, TROPI, PRCAL, MYCM #### [facility] [employer] [address] [place] [address] 89330 Magnesiumon 08-20-2018 Magnesium mass conc 2.2 mg/dL Normal 1.6-2.6 [facility] Comment on above: Performed By: #### L ACDS, TROPI, PRCAL, MYCM #### [facility] [employer] [address] [place] [address] 83648 Sedimentation Rateon 018 Sedimentation Rate 100 mm High 0-20 [facility] Comment on above: Performed By: #### L ACDS, TROPI, PRCAL, MYCM #### [address] [address] XR FOOT LEFT (MIN 3 VIEWS)on 08-20-2018 XR FOOT LEFT (MIN 3 VIEWS) EXAMINATION: 3 XRAY VIEWS OF THE LEFT FOOT 08/20/2018 6:08 pm COMPARISON: None. HISTORY: ORDERING SYSTEM PROVIDED HISTORY: Foot pain and swelling TECHNOLOGIST PROVIDED HISTORY: Foot pain and swelling FINDINGS: There is no evidence of acute fracture. There is normal alignment of the tarsometatarsal joints. No acute joint abnormality. No focal osseous lesion. No focal soft tissue abnormality. IMPRESSION: No acute osseous abnormality. Interpreted by: Andrey Angelo MD Signed by: Andrey Angelo MD 08/20/18 Final result Normal [facility] CBC with Diffon 08-19-2018 Abs. Basophil 0.00 k/uL Normal 0.0-0.2 [facility] Comment on above: Performed By: #### L ACDS, TROPI, PRCAL, MYCM #### [facility] [employer] [address] [place] [address] 98059 Abs.Imm.Granulocyte 0.42 k/uL High 0.00-0.30 [facility] Comment on above: Performed By: #### L ACDS, TROPI, PRCAL, MYCM #### [facility] [employer] [address] [place] [address] 67163 Abs.Neutrophil (Seg) 2.70 k/uL Normal 1.8-7.7 [facility] Comment on above: Performed By: #### L ACDS, TROPI, PRCAL, MYCM #### [facility] [employer] [address] [place] [address] 57527 Basophils/100 WBC (Bld) 0 % Normal 0-2 [facility] Comment on above: Performed By: #### L ACDS, TROPI, PRCAL, MYCM #### [address] [address] Eosinophils #/vol (Bld) 0.30 10*3/uL Normal 0.0-0.4 [facility] Comment on above: Performed By: #### L ACDS, TROPI, PRCAL, MYCM #### [address] [address] Eosinophils/100 WBC (Bld) 5 % High 1-4 [facility] Comment on above: Performed By: #### L ACDS, TROPI, PRCAL, MYCM #### [address] [address] Immature granulocytes #/vol (Bld) 7 % High 0 [facility] Comment on above: Performed By: #### L ACDS, TROPI, PRCAL, MYCM #### [address] [address] Lymphocytes #/vol (Bld) 2.22 10*3/uL Normal 1.0-4.8 [facility] Comment on above: Performed By: #### L ACDS, TROPI, PRCAL, MYCM #### [address] [address] Lymphocytes/100 WBC (Bld) 37 % Normal 24-44 [facility] Comment on above: Performed By: #### L ACDS, TROPI, PRCAL, MYCM #### [address] [address] Monocytes #/vol (Bld) 0.36 10*3/uL Normal 0.1-0.8 [facility] Comment on above: Performed By: #### L ACDS, TROPI, PRCAL, MYCM #### [facility] [employer] [address] [place] [address] 23532 Monocytes/100 WBC (Bld) 6 % Normal 1-7 [facility] Comment on above: Performed By: #### L ACDS, TROPI, PRCAL, MYCM #### [facility] [employer] [address] [place] [address] 31741 Morphology Interp Rehan (Bld) ANISOCYTOSIS PRESENT Normal [facility] Comment on above: Performed By: #### L ACDS, TROPI, PRCAL, MYCM #### [facility] [employer] [address] [place] [address] 47455 Neutrophil (Seg) 45 % Normal 36-66 [facility] Comment on above: Performed By: #### L ACDS, TROPI, PRCAL, MYCM #### [facility] [employer] [address] [place] [address] 48685 Erythrocyte distribution width Ratio (RBC) 14.6 % High 11.8-14.4 [facility] Comment on above: Performed By: #### L ACDS, TROPI, PRCAL, MYCM #### [facility] [employer] [address] [place] [address] 18163 Hematocrit Volume Fraction (Bld) 34.4 % Low 36.3-47.1 [facility] Comment on above: Performed By: #### L ACDS, TROPI, PRCAL, MYCM #### [facility] [employer] [address] [place] [address] 51142 Hemoglobin mass conc (Bld) 10.4 g/dL Low 11.9-15.1 [facility] Comment on above: Performed By: #### L ACDS, TROPI, PRCAL, MYCM #### [facility] [employer] [address] [place] [address] 79769 MCH Entitic mass (RBC) 28.0 pg Normal 25.2-33.5 [facility] Comment on above: Performed By: #### L ACDS, TROPI, PRCAL, MYCM #### [address] [address] MCHC mass conc (RBC) 30.2 g/dL Normal 28.4-34.8 [facility] Comment on above: Performed By: #### L ACDS, TROPI, PRCAL, MYCM #### [address] [address] MCV Entitic volume (RBC) 92.7 fL Normal 82.6-102.9 [facility] Comment on above: Performed By: #### L ACDS, TROPI, PRCAL, MYCM #### [address] [address] NRBC Automated 0.3 per 100 WBC High 0.0 [facility] Comment on above: Performed By: #### L ACDS, TROPI, PRCAL, MYCM #### [address] [address] Platelet mean volume Entitic volume (Bld) 10.5 fL Normal 8.1-13.5 [facility] Comment on above: Performed By: #### L ACDS, TROPI, PRCAL, MYCM #### [address] [address] Platelets #/vol (Bld) 168 10*3/uL Normal 138-453 [facility] Comment on above: Performed By: #### L ACDS, TROPI, PRCAL, MYCM #### [address] [address] RBC #/vol (Bld) 3.71 10*6/uL Low 3.95-5.11 [facility] Comment on above: Performed By: #### L ACDS, TROPI, PRCAL, MYCM #### [address] [address] WBC #/vol (Bld) 6.0 10*3/uL Normal 3.5-11.3 [facility] Comment on above: Performed By: #### L ACDS, TROPI, PRCAL, MYCM #### [address] [address] Auto Diff Performed NOT REPORTED Normal [facility] Comment on above: Performed By: #### L ACDS, TROPI, PRCAL, MYCM #### [address] [address] Platelets #/vol (Bld) NOT REPORTED Normal [facility] Comment on above: Performed By: #### L ACDS, TROPI, PRCAL, MYCM #### [facility] [employer] [address] [place] [address] 70483 RBC morphology finding Nom (Bld) NOT REPORTED Normal [facility] Comment on above: Performed By: #### L ACDS, TROPI, PRCAL, MYCM #### [address] [address] WBC Morphology NOT REPORTED Normal [facility] Comment on above: Performed By: #### L ACDS, TROPI, PRCAL, MYCM #### [facility] [employer] [address] [place] [address]291 Comp Metabolic Pr/rfx MGon 1 10-19-2017 (cont.) Normal [facility] Comment on above: Result Comment: Aver age GFR for 30-39 years old: 107 mL/min/1.73sq m Chronic Kidney Disease: <60 mL/min/1.73sq m Kidney failure: <15 mL/min/1.73sq m eGFR calculated using average adult body mass. Additional eGFR calculator available at: http://www.ProPlan.Mangia/multiple_crcl_2011.htm Performed By: #### L ACDS, TROPI, PRCAL, MYCM #### [facility] [employer] [address] [place] [address] 34965 Albumin mass conc 2.7 g/dL Low 3.5-5.2 [facility] Comment on above: Performed By: #### L ACDS, TROPI, PRCAL, MYCM #### [facility] [employer] [address] [place] [address] Albumin/Globulin mass ratio 0.8 {ratio} Low 1.0-2.5 [facility] Comment on above: Performed By: #### L ACDS, TROPI, PRCAL, MYCM #### [facility] [employer] [address] [place] [address] 03200 Alkaline Phos 78 U/L Normal 35-104 [facility] Comment on above: Performed By: #### L ACDS, TROPI, PRCAL, MYCM #### [facility] [employer] [address] [place] [address] 35605 ALT enzyme act/vol 16 U/L Normal 5-33 [facility] Comment on above: Performed By: #### L ACDS, TROPI, PRCAL, MYCM #### [facility] [employer] [address] [place] [address] 16623 Anion gap molar conc 10 mmol/L Normal 9-17 [facility] Comment on above: Performed By: #### L ACDS, TROPI, PRCAL, MYCM #### [facility] [employer] [address] [place] [address] 56531 AST enzyme act/vol 16 U/L Normal <32 [facility] Comment on above: Performed By: #### L ACDS, TROPI, PRCAL, MYCM #### [facility] [employer] [address] [place] [address] 26028 Bilirubin Ql (U) 0.21 mg/dL Low 0.3-1.2 [facility] Comment on above: Performed By: #### L ACDS, TROPI, PRCAL, MYCM #### [facility] [employer] [address] [place] [address] 54592 Calcium mass conc 8.5 mg/dL Low 8.6-10.4 [facility] Comment on above: Performed By: #### L ACDS, TROPI, PRCAL, MYCM #### [facility] [employer] [address] [place] [address]37 Chloride molar conc 103 mmol/L Normal 98-107 [facility] Comment on above: Performed By: #### L ACDS, TROPI, PRCAL, MYCM #### [facility] [employer] [address] [place] [address] 90085 CO2 molar conc 24 mmol/L Normal 20-31 [facility] Comment on above: Performed By: #### L ACDS, TROPI, PRCAL, MYCM #### [facility] [employer] [address] [place] [address]182 Creatinine mass conc 0.88 mg/dL Normal 0.50-0.90 [facility] Comment on above: Performed By: #### L ACDS, TROPI, PRCAL, MYCM #### [facility] [employer] [address] [place] [address]1781 GFR, Amer >60 Normal >60 [facility] Comment on above: Performed By: #### L ACDS, TROPI, PRCAL, MYCM #### [facility] [employer] [address] [place] [address] 29955 GFR,non Amer >60 Normal >60 [facility] Comment on above: Performed By: #### L ACDS, TROPI, PRCAL, MYCM #### [facility] [employer] [address] [place] [address]1792 Glucose mass conc 104 mg/dL High 70-99 [facility] Comment on above: Performed By: #### L ACDS, TROPI, PRCAL, MYCM #### [facility] [employer] [address] [place] [address] 30417 Potassium molar conc 4.0 mmol/L Normal 3.7-5.3 [facility] Comment on above: Performed By: #### L ACDS, TROPI, PRCAL, MYCM #### [facility] [employer] [address] [place] [address]8434 Protein mass conc 6.3 g/dL Low 6.4-8.3 [facility] Comment on above: Performed By: #### L ACDS, TROPI, PRCAL, MYCM #### [facility] [employer] [address] [place] [address]64 Sodium molar conc 137 mmol/L Normal 135-144 [facility] Comment on above: Performed By: #### L ACDS, TROPI, PRCAL, MYCM #### [facility] [employer] [address] [place] [address] 13787 Urea nitrogen mass conc 16 mg/dL Normal -20 [facility] Comment on above: Performed By: #### L ACDS, TROPI, PRCAL, MYCM #### [facility] [employer] [address] [place] [address] BUN/CRE Ratio NOT REPORTED Normal -20 [facility] Comment on above: Performed By: #### L ACDS, TROPI, PRCAL, MYCM #### [facility] [address] [place] [address] Staging: NOT REPORTED Normal [facility] Comment on above: Performed By: #### L ACDS, TROPI, PRCAL, MYCM #### [facility] [address] [place] [address] Cult, Bloodon 08-19-2018 Cult, Blood Specimen Description .BLOOD Special Requests L HAND 6ML Culture POSITIVE BLOOD CULTURE, RN NOTIFIED: ELMER Lino ON 08/17/18 AT 1107 DIRECT GRAM STAIN FROM BOTTLE: GRAM POSITIVE COCCI IN CLUSTERS ID by PNAFISH: STAPHYLOCOCCUS AUREUS METHICILLIN RESISTANT STAPHYLOCOCCUS AUREUS Report Status FINAL 08/18/2018 SUSCEPTIBILITY Organism METHICILLIN RESISTANT STAPHYLOCOCCUS AUREUS Method SONIA Penicillin >=0.5 RESISTANT Cefoxitin Screen NOT REPORTED Ciprofloxacin NOT REPORTED Clindamycin <=0.25 SUSCEPTIBLE Erythromycin >=8 RESISTANT Gentamicin <=0.5 SUSCEPTIBLE Induced Clind Resist NEGATIVE Levofloxacin 4 RESISTANT Linezolid NOT REPORTED Moxifloxacin NOT REPORTED Nitrofurantoin NOT REPORTED Oxacillin >=4 RESISTANT Synercid NOT REPORTED Rifampin NOT REPORTED Tetracycline <=1 SUSCEPTIBLE Tigecycline NOT REPORTED Trimethoprim/Sulfa <=10 SUSCEPTIBLE Vancomycin 1 SUSCEPTIBLE Normal [facility] Comment on above: Performed By: #### L ACDS, TROPI, PRCAL, MYCM #### [employer] [facility] [place] [address] MRI CERVICAL SPINE W WO CONT RASTon 08-19-2018 MRI CERVICAL SPINE W WO CONTRAST EXAMINATION: MRI OF THE THORACIC SPINE WITHOUT AND WITH CONTRAST; MRI OF THE CERVICAL SPINE WITHOUT AND WITH CONTRAST; MRI OF THE LUMBAR SPINE WITHOUT AND WITH CONTRAST 08/19/2018 3:13 pm TECHNIQUE: Multiplanar multisequence MRI of the thoracic spine was performed without and with the administration of intravenous contrast.; Multiplanar multisequence MRI of the cervical spine was performed without and with the administration of intravenous contrast.; Multiplanar multisequence MRI of the lumbar spine was performed without and with the administration of intravenous contrast. COMPARISON: None HISTORY: ORDERING SYSTEM PROVIDED HISTORY: MYELOPATHY, INFECTIOUS ETIOL SUSPECTED TECHNOLOGIST PROVIDED HISTORY: Ordering Physician Provided Reason for Exam: r/o abcess in spine Acuity: Unknown Type of Exam: Unknown; ORDERING SYSTEM PROVIDED HISTORY: SPINE INFECTION FINDINGS: MRI cervical spine: There is a normal cervical lordosis. No acute fracture or traumatic subluxation is identified. The images are degraded by motion artifact but there is no conclusive evidence of osteodiscitis within the cervical spine. There is mild degenerative disc disease of the lower cervical spine characterized by disc desiccation, disc height loss and osteophyte formation. Normal expected signal voids are present within the vertebral arteries. No abnormal enhancement of the cervical spine is identified after contrast administration. The cervical cord is grossly normal in size and signal. MRI thoracic spine: There is a normal thoracic curvature. No acute fracture or traumatic subluxation is identified. A rounded T1 and T2 bright lesion within the T5 vertebral body suppresses on STIR and is compatible with an osseous hemangioma. There is no imaging evidence of osteodiscitis. There is mild multilevel degenerative disc disease characterized by disc desiccation, disc height loss, and osteophyte formation. There is fluid within the facet joints at T4-T5 bilaterally with adjacent marrow edema, worse on the left hand side and best seen on STIR, worrisome for septic arthritis. There is also a collection within the posterior epidural space measuring up to 8 mm in AP thickness and spanning a length of approximately 7.9 cm in length, consistent with epidural abscess/phlegmon. This results in significant focal narrowing of the thecal sac with mild mass-effect on the cord. No definite associated cord signal abnormality is identified at this time. There is a moderate left pleural effusion. MRI lumbar spine: There is a normal lumbar lordosis. No acute fracture or traumatic subluxation is identified. There is no imaging evidence of osteodiscitis. No epidural collection or mass is identified within the lumbar spine. There is mild facet hypertrophy at L4-5 and L5-S1. IMPRESSION: Epidural phlegmon/abscess within the posterior aspect of the thoracic canal with suggestion of adjacent septic arthritis. Moderate left pleural effusion. The findings were sent to the Radiology Results Communication Center at 3:42 pm on 08/19/2018to be communicated to a licensed caregiver. RECOMMENDATIONS: Noncontrast CT of the thoracic spine could be helpful in further characterization. Interpreted by: Bo Rodrigues MD Signed by: Bo Rodrigues MD 08/19/18 Final result Normal [facility] MRI LUMBAR SPINE W WO CONTRA STon 08-19-2018 MRI LUMBAR SPINE W WO CONTRAST EXAMINATION: MRI OF THE THORACIC SPINE WITHOUT AND WITH CONTRAST; MRI OF THE CERVICAL SPINE WITHOUT AND WITH CONTRAST; MRI OF THE LUMBAR SPINE WITHOUT AND WITH CONTRAST 08/19/2018 3:13 pm TECHNIQUE: Multiplanar multisequence MRI of the thoracic spine was performed without and with the administration of intravenous contrast.; Multiplanar multisequence MRI of the cervical spine was performed without and with the administration of intravenous contrast.; Multiplanar multisequence MRI of the lumbar spine was performed without and with the administration of intravenous contrast. COMPARISON: None HISTORY: ORDERING SYSTEM PROVIDED HISTORY: MYELOPATHY, INFECTIOUS ETIOL SUSPECTED TECHNOLOGIST PROVIDED HISTORY: Ordering Physician Provided Reason for Exam: r/o abcess in spine Acuity: Unknown Type of Exam: Unknown; ORDERING SYSTEM PROVIDED HISTORY: SPINE INFECTION FINDINGS: MRI cervical spine: There is a normal cervical lordosis. No acute fracture or traumatic subluxation is identified. The images are degraded by motion artifact but there is no conclusive evidence of osteodiscitis within the cervical spine. There is mild degenerative disc disease of the lower cervical spine characterized by disc desiccation, disc height loss and osteophyte formation. Normal expected signal voids are present within the vertebral arteries. No abnormal enhancement of the cervical spine is identified after contrast administration. The cervical cord is grossly normal in size and signal. MRI thoracic spine: There is a normal thoracic curvature. No acute fracture or traumatic subluxation is identified. A rounded T1 and T2 bright lesion within the T5 vertebral body suppresses on STIR and is compatible with an osseous hemangioma. There is no imaging evidence of osteodiscitis. There is mild multilevel degenerative disc disease characterized by disc desiccation, disc height loss, and osteophyte formation. There is fluid within the facet joints at T4-T5 bilaterally with adjacent marrow edema, worse on the left hand side and best seen on STIR, worrisome for septic arthritis. There is also a collection within the posterior epidural space measuring up to 8 mm in AP thickness and spanning a length of approximately 7.9 cm in length, consistent with epidural abscess/phlegmon. This results in significant focal narrowing of the thecal sac with mild mass-effect on the cord. No definite associated cord signal abnormality is identified at this time. There is a moderate left pleural effusion. MRI lumbar spine: There is a normal lumbar lordosis. No acute fracture or traumatic subluxation is identified. There is no imaging evidence of osteodiscitis. No epidural collection or mass is identified within the lumbar spine. There is mild facet hypertrophy at L4-5 and L5-S1. IMPRESSION: Epidural phlegmon/abscess within the posterior aspect of the thoracic canal with suggestion of adjacent septic arthritis. Moderate left pleural effusion. The findings were sent to the Radiology Results Communication Center at 3:42 pm on 08/19/2018to be communicated to a licensed caregiver. RECOMMENDATIONS: Noncontrast CT of the thoracic spine could be helpful in further characterization. Interpreted by: Bo Rodrigues MD Signed by: Bo Rodrigues MD 08/19/18 Final result Normal [facility] MRI THORACIC SPINE W WO CONT Arianna 08-19-2018 MRI THORACIC SPINE W WO CONTRAST EXAMINATION: MRI OF THE THORACIC SPINE WITHOUT AND WITH CONTRAST; MRI OF THE CERVICAL SPINE WITHOUT AND WITH CONTRAST; MRI OF THE LUMBAR SPINE WITHOUT AND WITH CONTRAST 08/19/2018 3:13 pm TECHNIQUE: Multiplanar multisequence MRI of the thoracic spine was performed without and with the administration of intravenous contrast.; Multiplanar multisequence MRI of the cervical spine was performed without and with the administration of intravenous contrast.; Multiplanar multisequence MRI of the lumbar spine was performed without and with the administration of intravenous contrast. COMPARISON: None HISTORY: ORDERING SYSTEM PROVIDED HISTORY: MYELOPATHY, INFECTIOUS ETIOL SUSPECTED TECHNOLOGIST PROVIDED HISTORY: Ordering Physician Provided Reason for Exam: r/o abcess in spine Acuity: Unknown Type of Exam: Unknown; ORDERING SYSTEM PROVIDED HISTORY: SPINE INFECTION FINDINGS: MRI cervical spine: There is a normal cervical lordosis. No acute fracture or traumatic subluxation is identified. The images are degraded by motion artifact but there is no conclusive evidence of osteodiscitis within the cervical spine. There is mild degenerative disc disease of the lower cervical spine characterized by disc desiccation, disc height loss and osteophyte formation. Normal expected signal voids are present within the vertebral arteries. No abnormal enhancement of the cervical spine is identified after contrast administration. The cervical cord is grossly normal in size and signal. MRI thoracic spine: There is a normal thoracic curvature. No acute fracture or traumatic subluxation is identified. A rounded T1 and T2 bright lesion within the T5 vertebral body suppresses on STIR and is compatible with an osseous hemangioma. There is no imaging evidence of osteodiscitis. There is mild multilevel degenerative disc disease characterized by disc desiccation, disc height loss, and osteophyte formation. There is fluid within the facet joints at T4-T5 bilaterally with adjacent marrow edema, worse on the left hand side and best seen on STIR, worrisome for septic arthritis. There is also a collection within the posterior epidural space measuring up to 8 mm in AP thickness and spanning a length of approximately 7.9 cm in length, consistent with epidural abscess/phlegmon. This results in significant focal narrowing of the thecal sac with mild mass-effect on the cord. No definite associated cord signal abnormality is identified at this time. There is a moderate left pleural effusion. MRI lumbar spine: There is a normal lumbar lordosis. No acute fracture or traumatic subluxation is identified. There is no imaging evidence of osteodiscitis. No epidural collection or mass is identified within the lumbar spine. There is mild facet hypertrophy at L4-5 and L5-S1. IMPRESSION: Epidural phlegmon/abscess within the posterior aspect of the thoracic canal with suggestion of adjacent septic arthritis. Moderate left pleural effusion. The findings were sent to the Radiology Results Communication Center at 3:42 pm on 08/19/2018to be communicated to a licensed caregiver. RECOMMENDATIONS: Noncontrast CT of the thoracic spine could be helpful in further characterization. Interpreted by: Bo Rodrigues MD Signed by: Bo Rodrigues MD 08/19/18 Final result Normal [facility] Magnesiumon 08-19-2018 Magnesium mass conc 2.3 mg/dL Normal 1.6-2.6 [facility] Comment on above: Performed By: #### L ACDS, TROPI, PRCAL, MYCM #### [employer] [address] [place] [address] Procalcitoninon 08-19-2018 Protein mass conc 0.57 ng/mL High <0.09 [facility] Comment on above: Result Comment: Suspected Sepsis: 0.09-0.49 ng/mL Low likelihood of sepsis. 0.50-2.00 ng/mL Increased likelihood of sepsis. Antibiotics encouraged. >2.00 ng/mL High risk of sepsis/shock. Antibiotics strongly encouraged. Suspected Lower Resp Tract Infections: 0.09-0.24 ng/mL Low likelihood of bacterial infection. >0.24 ng/mL Increased likelihood of bacterial infection. Antibiotics encouraged. With successful antibiotic therapy, PCT levels should decrease rapidly. (Half-life of 24 to 36 hours.) Procalcitonin values from samples collected within the first 6 hours of systemic infection may still be low. Retesting may be indicated. Values from day 1 and day 4 can be entered into the Change in Procalcitonin Calculator (www.xsxban-lkg-hxepsviwnr.com) to determine the patient's Mortality Risk Prognosis Performed By: #### L ACDS, TROPI, PRCAL, MYCM #### [address] [address] CBC with Diffon 08-18-2018 Abs. Basophil <0.03 Normal 0.00-0.20 [facility] Comment on above: Performed By: #### L ACDS, TROPI, PRCAL, MYCM #### [facility] [employer] [address] [place] [address] 13245 Abs.Imm.Granulocyte 0.28 k/uL Normal 0.00-0.30 [facility] Comment on above: Performed By: #### L ACDS, TROPI, PRCAL, MYCM #### [facility] [employer] [address] [place] [address]245 Abs.Neutrophil (Seg) 3.23 k/uL Normal 1.50-8.10 [facility] Comment on above: Performed By: #### L ACDS, TROPI, PRCAL, MYCM #### [facility] [employer] [address] [place] [address] 06767 Basophils/100 WBC (Bld) 0 % Normal 0-2 [facility] Comment on above: Performed By: #### L ACDS, TROPI, PRCAL, MYCM #### [facility] [employer] [address] [place] [address] 94037 Eosinophils #/vol (Bld) 0.15 10*3/uL Normal 0.00-0.44 [facility] Comment on above: Performed By: #### L ACDS, TROPI, PRCAL, MYCM #### [facility] [employer] [address] [place] [address] 45921 Eosinophils/100 WBC (Bld) 3 % Normal 1-4 [facility] Comment on above: Performed By: #### L ACDS, TROPI, PRCAL, MYCM #### [facility] [employer] [address] [place] [address] 21299 Erythrocyte distribution width Ratio (RBC) 14.7 % High 11.8-14.4 [facility] Comment on above: Performed By: #### L ACDS, TROPI, PRCAL, MYCM #### [address] [address] Hematocrit Volume Fraction (Bld) 32.7 % Low 36.3-47.1 [facility] Comment on above: Performed By: #### L ACDS, TROPI, PRCAL, MYCM #### [facility] [employer] [address] [place] [address] 11074 Hemoglobin mass conc (Bld) 10.1 g/dL Low 11.9-15.1 [facility] Comment on above: Performed By: #### L ACDS, TROPI, PRCAL, MYCM #### [address] [address] Immature granulocytes #/vol (Bld) 5 % High 0 [facility] Comment on above: Performed By: #### L ACDS, TROPI, PRCAL, MYCM #### [address] [address] Lymphocytes #/vol (Bld) 1.58 10*3/uL Normal 1.10-3.70 [facility] Comment on above: Performed By: #### L ACDS, TROPI, PRCAL, MYCM #### [address] [address] Lymphocytes/100 WBC (Bld) 28 % Normal 24-43 [facility] Comment on above: Performed By: #### L ACDS, TROPI, PRCAL, MYCM #### [facility] [employer] [address] [place] [address] 23359 MCH Entitic mass (RBC) 28.2 pg Normal 25.2-33.5 [facility] Comment on above: Performed By: #### L ACDS, TROPI, PRCAL, MYCM #### [address] [address] MCHC mass conc (RBC) 30.9 g/dL Normal 28.4-34.8 [facility] Comment on above: Performed By: #### L ACDS, TROPI, PRCAL, MYCM #### [address] [address] MCV Entitic volume (RBC) 91.3 fL Normal 82.6-102.9 [facility] Comment on above: Performed By: #### L ACDS, TROPI, PRCAL, MYCM #### [address] [address] Monocytes #/vol (Bld) 0.47 10*3/uL Normal 0.10-1.20 [facility] Comment on above: Performed By: #### L ACDS, TROPI, PRCAL, MYCM #### [address] [address] Monocytes/100 WBC (Bld) 8 % Normal 3-12 [facility] Comment on above: Performed By: #### L ACDS, TROPI, PRCAL, MYCM #### [address] [address] Neutrophil (Seg) 56 % Normal 36-65 [facility] Comment on above: Performed By: #### L ACDS, TROPI, PRCAL, MYCM #### [address] [address] NRBC Automated 0.0 per 100 WBC Normal 0.0 [facility] Comment on above: Performed By: #### L ACDS, TROPI, PRCAL, MYCM #### [facility] [employer] [address] [place] [address] 26571 Platelet mean volume Entitic volume (Bld) 11.4 fL Normal 8.1-13.5 [facility] Comment on above: Performed By: #### L ACDS, TROPI, PRCAL, MYCM #### [address] [address] Platelets #/vol (Bld) 153 10*3/uL Normal 138-453 [facility] Comment on above: Performed By: #### L ACDS, TROPI, PRCAL, MYCM #### [address] [address] RBC #/vol (Bld) 3.58 10*6/uL Low 3.95-5.11 [facility] Comment on above: Performed By: #### L ACDS, TROPI, PRCAL, MYCM #### [address] [address] RBC morphology finding Nom (Bld) ANISOCYTOSIS PRESENT Normal [facility] Comment on above: Performed By: #### L ACDS, TROPI, PRCAL, MYCM #### [address] [address] WBC #/vol (Bld) 5.7 10*3/uL Normal 3.5-11.3 [facility] Comment on above: Performed By: #### L ACDS, TROPI, PRCAL, MYCM #### [address] [address] Auto Diff Performed NOT REPORTED Normal [facility] Comment on above: Performed By: #### L ACDS, TROPI, PRCAL, MYCM #### [address] [address] Platelets #/vol (Bld) NOT REPORTED Normal [facility] Comment on above: Performed By: #### L ACDS, TROPI, PRCAL, MYCM #### [address] [id number] WBC Morphology NOT REPORTED Normal [facility] Comment on above: Performed By: #### L ACDS, TROPI, PRCAL, MYCM #### [facility] [address] [place] [address]93 Comp Metabolic Pr/rfx MGon 1 10-18-2017 (cont.) Normal [facility] Comment on above: Result Comment: Aver age GFR for 30-39 years old: 107 mL/min/1.73sq m Chronic Kidney Disease: <60 mL/min/1.73sq m Kidney failure: <15 mL/min/1.73sq m eGFR calculated using average adult body mass. Additional eGFR calculator available at: http://www.GHash.IO/multiple_crcl_2011.htm Performed By: #### L ACDS, TROPI, PRCAL, MYCM #### [employer] [address] [place] [address] 62474 Albumin mass conc 2.7 g/dL Low 3.5-5.2 [facility] Comment on above: Performed By: #### L ACDS, TROPI, PRCAL, MYCM #### [employer] [address] [place] [address] [phone] Albumin/Globulin mass ratio 0.8 {ratio} Low 1.0-2.5 [facility] Comment on above: Performed By: #### L ACDS, TROPI, PRCAL, MYCM #### [employer] [address] [place] [address] 73245 Alkaline Phos 82 U/L Normal 35-104 [facility] Comment on above: Performed By: #### L ACDS, TROPI, PRCAL, MYCM #### [employer] [address] [place] [address] [id number] ALT enzyme act/vol 19 U/L Normal 5-33 [facility] Comment on above: Performed By: #### L ACDS, TROPI, PRCAL, MYCM #### [facility] [employer] [address] [place] [address] 19495 Anion gap molar conc 8 mmol/L Low 9-17 [facility] Comment on above: Performed By: #### L ACDS, TROPI, PRCAL, MYCM #### [facility] [employer] [address] [place] [address] 60862 AST enzyme act/vol 17 U/L Normal <32 [facility] Comment on above: Performed By: #### L ACDS, TROPI, PRCAL, MYCM #### [facility] [employer] [address] [place] [address] 60252 Bilirubin Ql (U) 0.24 mg/dL Low 0.3-1.2 [facility] Comment on above: Performed By: #### L ACDS, TROPI, PRCAL, MYCM #### [facility] [employer] [address] [place] [address] 91614 Calcium mass conc 8.2 mg/dL Low 8.6-10.4 [facility] Comment on above: Performed By: #### L ACDS, TROPI, PRCAL, MYCM #### [facility] [employer] [address] [place] [address] Chloride molar conc 103 mmol/L Normal 98-107 [facility] Comment on above: Performed By: #### L ACDS, TROPI, PRCAL, MYCM #### [facility] [employer] [address] [place] [address] 33297 CO2 molar conc 25 mmol/L Normal 20-31 [facility] Comment on above: Performed By: #### L ACDS, TROPI, PRCAL, MYCM #### [facility] [employer] [address] [place] [address] 08891 Creatinine mass conc 0.94 mg/dL High 0.50-0.90 [facility] Comment on above: Performed By: #### L ACDS, TROPI, PRCAL, MYCM #### [facility] [employer] [address] [place] [address]291 GFR, Amer >60 Normal >60 [facility] Comment on above: Performed By: #### L ACDS, TROPI, PRCAL, MYCM #### [facility] [employer] [address] [place] [address] 03846 GFR,non Amer >60 Normal >60 [facility] Comment on above: Performed By: #### L ACDS, TROPI, PRCAL, MYCM #### [address] [address] Glucose mass conc 107 mg/dL High 70-99 [facility] Comment on above: Performed By: #### L ACDS, TROPI, PRCAL, MYCM #### [address] [address] Potassium molar conc 4.1 mmol/L Normal 3.7-5.3 [facility] Comment on above: Performed By: #### L ACDS, TROPI, PRCAL, MYCM #### [address] [address] Protein mass conc 6.2 g/dL Low 6.4-8.3 [facility] Comment on above: Performed By: #### L ACDS, TROPI, PRCAL, MYCM #### [facility] [employer] [address] [place] [address] 97791 Sodium molar conc 136 mmol/L Normal 135-144 [facility] Comment on above: Performed By: #### L ACDS, TROPI, PRCAL, MYCM #### [facility] [employer] [address] [place] [address] 31905 Urea nitrogen mass conc 14 mg/dL Normal 6-20 [facility] Comment on above: Performed By: #### L ACDS, TROPI, PRCAL, MYCM #### [facility] [address] [place] [address] 21298 BUN/CRE Ratio NOT REPORTED Normal 06-24 [facility] Comment on above: Performed By: #### L ACDS, TROPI, PRCAL, MYCM #### [employer] [address] [place] [address] 29769 Staging: NOT REPORTED Normal [facility] Comment on above: Performed By: #### L ACDS, TROPI, PRCAL, MYCM #### [facility] [address] [place] [address] Magnesiumon 08-18-2018 Magnesium mass conc 2.3 mg/dL Normal 1.6-2.6 [facility] Comment on above: Performed By: #### L ACDS, TROPI, PRCAL, MYCM #### [facility] [address] [place] [address] 11894 Vancomycin Troughon 08-18-20 18 Vancomycin Trough 14.7 ug/mL Normal 10.0-20.0 [facility] Comment on above: Result Comment: High er trough serum vancomycin concentrations of 15-20 ug/mL are recommended for complicated infections such as bacteremia, endocarditis, osteomyelitis, meningitis, and hospital acquired pneumonia. Performed By: #### L ACDS, TROPI, PRCAL, MYCM #### [employer] [address] [place] [address] 48124 Date last dose, NOT REPORTED Normal [facility] Comment on above: Performed By: #### L ACDS, TROPI, PRCAL, MYCM #### [employer] [address] [place] [address] 57624 Dose amount, NOT REPORTED Normal [facility] Comment on above: Performed By: #### L ACDS, TROPI, PRCAL, MYCM #### [employer] [address] [place] [address] Time last dose, NOT REPORTED Normal [facility] Comment on above: Performed By: #### L ACDS, TROPI, PRCAL, MYCM #### [address] [address] C-Reactive Proteinon 018 CRP mass conc 188.1 mg/L High 0.0-5.0 [facility] Comment on above: Performed By: #### L ACDS, TROPI, PRCAL, MYCM #### [address] [address] CBC with Diffon 08-17-2018 Abs. Basophil 0.00 k/uL Normal 0.0-0.2 [facility] Comment on above: Performed By: #### L ACDS, TROPI, PRCAL, MYCM #### [address] [address] Abs.Imm.Granulocyte 0.13 k/uL Normal 0.00-0.30 [facility] Comment on above: Performed By: #### L ACDS, TROPI, PRCAL, MYCM #### [address] [address] Abs.Neutrophil (Seg) 4.35 k/uL Normal 1.8-7.7 [facility] Comment on above: Performed By: #### L ACDS, TROPI, PRCAL, MYCM #### [facility] [employer] [address] [place] [address]2311 Basophils/100 WBC (Bld) 0 % Normal 0-2 [facility] Comment on above: Performed By: #### L ACDS, TROPI, PRCAL, MYCM #### [facility] [employer] [address] [place] [address] 62521 Eosinophils #/vol (Bld) 0.06 10*3/uL Normal 0.0-0.4 [facility] Comment on above: Performed By: #### L ACDS, TROPI, PRCAL, MYCM #### [address] [address] Eosinophils/100 WBC (Bld) 1 % Normal 1-4 [facility] Comment on above: Performed By: #### L ACDS, TROPI, PRCAL, MYCM #### [address] [address] Immature granulocytes #/vol (Bld) 2 % High 0 [facility] Comment on above: Performed By: #### L ACDS, TROPI, PRCAL, MYCM #### [address] [address] Lymphocytes #/vol (Bld) 1.32 10*3/uL Normal 1.0-4.8 [facility] Comment on above: Performed By: #### L ACDS, TROPI, PRCAL, MYCM #### [address] [address] Lymphocytes/100 WBC (Bld) 21 % Low 24-44 [facility] Comment on above: Performed By: #### L ACDS, TROPI, PRCAL, MYCM #### [address] [address] Monocytes #/vol (Bld) 0.44 10*3/uL Normal 0.1-0.8 [facility] Comment on above: Performed By: #### L ACDS, TROPI, PRCAL, MYCM #### [address] [address] Monocytes/100 WBC (Bld) 7 % Normal 1-7 [facility] Comment on above: Performed By: #### L ACDS, TROPI, PRCAL, MYCM #### [address] [address] Morphology Interp Rehan (Bld) ANISOCYTOSIS PRESENT Normal [facility] Comment on above: Result Comment: INCR EASED BANDS PRESENT 1+ TEARDROPS Performed By: #### L ACDS, TROPI, PRCAL, MYCM #### [facility] [employer] [address] [place] [address] Neutrophil (Seg) 69 % High 36-66 [facility] Comment on above: Performed By: #### L ACDS, TROPI, PRCAL, MYCM #### [facility] [employer] [address] [place] [address]10 Erythrocyte distribution width Ratio (RBC) 14.8 % High 11.8-14.4 [facility] Comment on above: Performed By: #### L ACDS, TROPI, PRCAL, MYCM #### [facility] [employer] [address] [place] [address] 66083 Hematocrit Volume Fraction (Bld) 33.3 % Low 36.3-47.1 [facility] Comment on above: Performed By: #### L ACDS, TROPI, PRCAL, MYCM #### [facility] [employer] [address] [place] [address]85 Hemoglobin mass conc (Bld) 10.2 g/dL Low 11.9-15.1 [facility] Comment on above: Performed By: #### L ACDS, TROPI, PRCAL, MYCM #### [facility] [employer] [address] [place] [address] 28420 MCH Entitic mass (RBC) 28.3 pg Normal 25.2-33.5 [facility] Comment on above: Performed By: #### L ACDS, TROPI, PRCAL, MYCM #### [facility] [employer] [address] [place] [address]347 MCHC mass conc (RBC) 30.6 g/dL Normal 28.4-34.8 [facility] Comment on above: Performed By: #### L ACDS, TROPI, PRCAL, MYCM #### [address] [address] MCV Entitic volume (RBC) 92.2 fL Normal 82.6-102.9 [facility] Comment on above: Performed By: #### L ACDS, TROPI, PRCAL, MYCM #### [address] [address] NRBC Automated 0.0 per 100 WBC Normal 0.0 [facility] Comment on above: Performed By: #### L ACDS, TROPI, PRCAL, MYCM #### [address] [address] Platelet mean volume Entitic volume (Bld) 11.5 fL Normal 8.1-13.5 [facility] Comment on above: Performed By: #### L ACDS, TROPI, PRCAL, MYCM #### [address] [address] Platelets #/vol (Bld) 149 10*3/uL Normal 138-453 [facility] Comment on above: Performed By: #### L ACDS, TROPI, PRCAL, MYCM #### [address] [address] RBC #/vol (Bld) 3.61 10*6/uL Low 3.95-5.11 [facility] Comment on above: Performed By: #### L ACDS, TROPI, PRCAL, MYCM #### [address] [address] WBC #/vol (Bld) 6.3 10*3/uL Normal 3.5-11.3 [facility] Comment on above: Performed By: #### L ACDS, TROPI, PRCAL, MYCM #### [address] [address] Auto Diff Performed NOT REPORTED Normal [facility] Comment on above: Performed By: #### L ACDS, TROPI, PRCAL, MYCM #### [address] [address] Platelets #/vol (Bld) NOT REPORTED Normal [facility] Comment on above: Performed By: #### L ACDS, TROPI, PRCAL, MYCM #### [address] [address] RBC morphology finding Nom (Bld) NOT REPORTED Normal [facility] Comment on above: Performed By: #### L ACDS, TROPI, PRCAL, MYCM #### [address] [address] WBC Morphology NOT REPORTED Normal [facility] Comment on above: Performed By: #### L ACDS, TROPI, PRCAL, MYCM #### [address] [address] Comp Metabolic Pr/rfx MGon 1 10-17-2017 (cont.) Normal [facility] Comment on above: Result Comment: Aver age GFR for 30-39 years old: 107 mL/min/1.73sq m Chronic Kidney Disease: <60 mL/min/1.73sq m Kidney failure: <15 mL/min/1.73sq m eGFR calculated using average adult body mass. Additional eGFR calculator available at: http://www.ProPlan.Mangia/multiple_crcl_2012.htm Performed By: #### L ACDS, TROPI, PRCAL, MYCM #### [address] [address] Albumin mass conc 2.4 g/dL Low 3.5-5.2 [facility] Comment on above: Performed By: #### L ACDS, TROPI, PRCAL, MYCM #### [address] [address] Albumin/Globulin mass ratio 0.7 {ratio} Low 1.0-2.5 [facility] Comment on above: Performed By: #### L ACDS, TROPI, PRCAL, MYCM #### [facility] [address] [place] [address]24 Alkaline Phos 76 U/L Normal 35-104 [facility] Comment on above: Performed By: #### L ACDS, TROPI, PRCAL, MYCM #### [facility] [employer] [address] [place] [address] 14658 ALT enzyme act/vol 25 U/L Normal 5-33 [facility] Comment on above: Performed By: #### L ACDS, TROPI, PRCAL, MYCM #### [facility] [employer] [address] [place] [address]20 Anion gap molar conc 8 mmol/L Low 9-17 [facility] Comment on above: Performed By: #### L ACDS, TROPI, PRCAL, MYCM #### [facility] [employer] [address] [place] [address] 40235 AST enzyme act/vol 26 U/L Normal <32 [facility] Comment on above: Performed By: #### L ACDS, TROPI, PRCAL, MYCM #### [facility] [employer] [address] [place] [address] 41303 Bilirubin Ql (U) 0.34 mg/dL Normal 0.3-1.2 [facility] Comment on above: Performed By: #### L ACDS, TROPI, PRCAL, MYCM #### [facility] [employer] [address] [place] [address]492 Calcium mass conc 7.8 mg/dL Low 8.6-10.4 [facility] Comment on above: Performed By: #### L ACDS, TROPI, PRCAL, MYCM #### [address] [address] Chloride molar conc 99 mmol/L Normal 98-107 [facility] Comment on above: Performed By: #### L ACDS, TROPI, PRCAL, MYCM #### [address] [address] CO2 molar conc 23 mmol/L Normal 20-31 [facility] Comment on above: Performed By: #### L ACDS, TROPI, PRCAL, MYCM #### [address] [address] Creatinine mass conc 1.04 mg/dL High 0.50-0.90 [facility] Comment on above: Performed By: #### L ACDS, TROPI, PRCAL, MYCM #### [address] [address] GFR, Amer >60 Normal >60 [facility] Comment on above: Performed By: #### L ACDS, TROPI, PRCAL, MYCM #### [address] [address] GFR,non Amer 59 mL/min Low >60 [facility] Comment on above: Performed By: #### L ACDS, TROPI, PRCAL, MYCM #### [address] [address] Glucose mass conc 109 mg/dL High 70-99 [facility] Comment on above: Performed By: #### L ACDS, TROPI, PRCAL, MYCM #### [address] [address] Potassium molar conc 3.8 mmol/L Normal 3.7-5.3 [facility] Comment on above: Performed By: #### L ACDS, TROPI, PRCAL, MYCM #### [address] [address] Protein mass conc 5.8 g/dL Low 6.4-8.3 [facility] Comment on above: Performed By: #### L ACDS, TROPI, PRCAL, MYCM #### [facility] [employer] [address] [place] [address]994 Sodium molar conc 130 mmol/L Low 135-144 [facility] Comment on above: Performed By: #### L ACDS, TROPI, PRCAL, MYCM #### [facility] [employer] [address] [place] [address] 08853 Urea nitrogen mass conc 15 mg/dL Normal - [facility] Comment on above: Performed By: #### L ACDS, TROPI, PRCAL, MYCM #### [facility] [employer] [address] [place] [address] 26339 BUN/CRE Ratio NOT REPORTED Normal 06-24 [facility] Comment on above: Performed By: #### L ACDS, TROPI, PRCAL, MYCM #### [facility] [employer] [address] [place] [address] 64118 Staging: NOT REPORTED Normal [facility] Comment on above: Performed By: #### L ACDS, TROPI, PRCAL, MYCM #### [facility] [employer] [address] [place] [address] 94828 Magnesiumon 08-17-2018 Magnesium mass conc 2.2 mg/dL Normal 1.6-2.6 [facility] Comment on above: Performed By: #### L ACDS, TROPI, PRCAL, MYCM #### [facility] [employer] [address] [place] [address] 39818 Procalcitoninon 08-17-2018 Protein mass conc 1.48 ng/mL High <0.09 [facility] Comment on above: Result Comment: Suspected Sepsis: 0.09-0.49 ng/mL Low likelihood of sepsis. 0.50-2.00 ng/mL Increased likelihood of sepsis. Antibiotics encouraged. >2.00 ng/mL High risk of sepsis/shock. Antibiotics strongly encouraged. Suspected Lower Resp Tract Infections: 0.09-0.24 ng/mL Low likelihood of bacterial infection. >0.24 ng/mL Increased likelihood of bacterial infection. Antibiotics encouraged. With successful antibiotic therapy, PCT levels should decrease rapidly. (Half-life of 24 to 36 hours.) Procalcitonin values from samples collected within the first 6 hours of systemic infection may still be low. Retesting may be indicated. Values from day 1 and day 4 can be entered into the Change in Procalcitonin Calculator (www.azptbk-mlt-nhexejwvhp.com) to determine the patient's Mortality Risk Prognosis Performed By: #### L ACDS, TROPI, PRCAL, MYCM #### [facility] [employer] [address] [place] [address] 76810 Sedimentation Rateon 018 Sedimentation Rate 97 mm High 0-20 [facility] Comment on above: Performed By: #### L ACDS, TROPI, PRCAL, MYCM #### [employer] [address] [place] [address] CBC with Diffon 08-16-2018 Abs. Basophil 0.00 k/uL Normal 0.00-0.20 [facility] Comment on above: Performed By: #### L ACDS, TROPI, PRCAL, MYCM #### [employer] [address] [place] [address] 57045 Abs.Imm.Granulocyte 0.11 k/uL Normal 0.00-0.30 [facility] Comment on above: Performed By: #### L ACDS, TROPI, PRCAL, MYCM #### [employer] [address] [place] [address] 97745 Abs.Neutrophil (Seg) 4.60 k/uL Normal 1.50-8.10 [facility] Comment on above: Performed By: #### L ACDS, TROPI, PRCAL, MYCM #### [facility] [employer] [address] [place] [address] 71261 Basophils/100 WBC (Bld) 0 % Normal 0-2 [facility] Comment on above: Performed By: #### L ACDS, TROPI, PRCAL, MYCM #### [address] [address] Eosinophils #/vol (Bld) 0.00 10*3/uL Normal 0.00-0.44 [facility] Comment on above: Performed By: #### L ACDS, TROPI, PRCAL, MYCM #### [address] [address] Eosinophils/100 WBC (Bld) 0 % Low 1-4 [facility] Comment on above: Performed By: #### L ACDS, TROPI, PRCAL, MYCM #### [address] [address] Immature granulocytes #/vol (Bld) 2 % High 0 [facility] Comment on above: Performed By: #### L ACDS, TROPI, PRCAL, MYCM #### [address] [address] Lymphocytes #/vol (Bld) 0.67 10*3/uL Low 1.10-3.70 [facility] Comment on above: Performed By: #### L ACDS, TROPI, PRCAL, MYCM #### [facility] [employer] [address] [place] [address] 19229 Lymphocytes/100 WBC (Bld) 12 % Low 24-43 [facility] Comment on above: Performed By: #### L ACDS, TROPI, PRCAL, MYCM #### [address] [address] Monocytes #/vol (Bld) 0.22 10*3/uL Normal 0.10-1.20 [facility] Comment on above: Performed By: #### L ACDS, TROPI, PRCAL, MYCM #### [facility] [employer] [address] [place] [address] 62747 Monocytes/100 WBC (Bld) 4 % Normal 3-12 [facility] Comment on above: Performed By: #### L ACDS, TROPI, PRCAL, MYCM #### [facility] [employer] [address] [place] [address] 20907 Morphology Interp Rehan (Bld) ANISOCYTOSIS PRESENT Normal [facility] Comment on above: Result Comment: INCR EASED BANDS PRESENT 1+ TEARDROPS Performed By: #### L ACDS, TROPI, PRCAL, MYCM #### [facility] [employer] [address] [place] [address] 24881 Neutrophil (Seg) 82 % High 36-65 [facility] Comment on above: Performed By: #### L ACDS, TROPI, PRCAL, MYCM #### [address] [address] Erythrocyte distribution width Ratio (RBC) 15.1 % High 11.8-14.4 [facility] Comment on above: Performed By: #### L ACDS, TROPI, PRCAL, MYCM #### [facility] [employer] [address] [place] [address] 47108 Hematocrit Volume Fraction (Bld) 34.1 % Low 36.3-47.1 [facility] Comment on above: Performed By: #### L ACDS, TROPI, PRCAL, MYCM #### [facility] [employer] [address] [place] [address] 05727 Hemoglobin mass conc (Bld) 10.0 g/dL Low 11.9-15.1 [facility] Comment on above: Performed By: #### L ACDS, TROPI, PRCAL, MYCM #### [address] [address] MCH Entitic mass (RBC) 28.7 pg Normal 25.2-33.5 [facility] Comment on above: Performed By: #### L ACDS, TROPI, PRCAL, MYCM #### [address] [address] MCHC mass conc (RBC) 29.3 g/dL Normal 28.4-34.8 [facility] Comment on above: Performed By: #### L ACDS, TROPI, PRCAL, MYCM #### [address] [address] MCV Entitic volume (RBC) 98.0 fL Normal 82.6-102.9 [facility] Comment on above: Performed By: #### L ACDS, TROPI, PRCAL, MYCM #### [address] [address] NRBC Automated 0.0 per 100 WBC Normal 0.0 [facility] Comment on above: Performed By: #### L ACDS, TROPI, PRCAL, MYCM #### [address] [address] Platelet mean volume Entitic volume (Bld) 11.1 fL Normal 8.1-13.5 [facility] Comment on above: Performed By: #### L ACDS, TROPI, PRCAL, MYCM #### [address] [address] Platelets #/vol (Bld) 119 10*3/uL Low 138-453 [facility] Comment on above: Performed By: #### L ACDS, TROPI, PRCAL, MYCM #### [address] [address] RBC #/vol (Bld) 3.48 10*6/uL Low 3.95-5.11 [facility] Comment on above: Performed By: #### L ACDS, TROPI, PRCAL, MYCM #### [address] [address] WBC #/vol (Bld) 5.6 10*3/uL Normal 3.5-11.3 [facility] Comment on above: Performed By: #### L ACDS, TROPI, PRCAL, MYCM #### [facility] [employer] [address] [place] [address] Auto Diff Performed NOT REPORTED Normal [facility] Comment on above: Performed By: #### L ACDS, TROPI, PRCAL, MYCM #### [facility] [employer] [address] [place] [address] Platelets #/vol (Bld) NOT REPORTED Normal [facility] Comment on above: Performed By: #### L ACDS, TROPI, PRCAL, MYCM #### [facility] [employer] [address] [place] [address] RBC morphology finding Nom (Bld) NOT REPORTED Normal [facility] Comment on above: Performed By: #### L ACDS, TROPI, PRCAL, MYCM #### [address] [address] WBC Morphology NOT REPORTED Normal [facility] Comment on above: Performed By: #### L ACDS, TROPI, PRCAL, MYCM #### [facility] [employer] [address] [place] [address] HEAD WO CONTRASTon 2017 CT HEAD WO CONTRAST EXAMINATION: CT OF THE HEAD WITHOUT CONTRAST 08/16/2018 8:48 am TECHNIQUE: CT of the head was performed without the administration of intravenous contrast. Dose modulation, iterative reconstruction, and/or weight based adjustment of the mA/kV was utilized to reduce the radiation dose to as low as reasonably achievable. COMPARISON: None. HISTORY: ORDERING SYSTEM PROVIDED HISTORY: encephalopathy TECHNOLOGIST PROVIDED HISTORY: FINDINGS: BRAIN/VENTRICLES: There is no acute intracranial hemorrhage, mass effect or midline shift. No abnormal extra-axial fluid collection. The padilla-white differentiation is maintained without evidence of an acute infarct. There is no evidence of hydrocephalus. ORBITS: The visualized portion of the orbits demonstrate no acute abnormality. SINUSES: The visualized paranasal sinuses and mastoid air cells demonstrate no acute abnormality. Mild mucoperiosteal thickening along the dillon of the sphenoid sinus. SOFT TISSUES/SKULL: No acute abnormality of the visualized skull or soft tissues. IMPRESSION: No acute intracranial abnormality. Interpreted by: Erica Angeles MD Signed by: Erica Angeles MD 08/16/18 Final result Normal [facility] Calcium, Ionicon 08-16-2018 Calcium mass conc 0.99 mmol/L Low 1.13-1.33 [facility] Comment on above: Performed By: #### L ACDS, TROPI, PRCAL, MYCM #### [facility] [employer] [address] [place] [address] [id number] Comp Metabolic Pr/rfx MGon 1 10-16-2017 (cont.) Normal [facility] Comment on above: Result Comment: Aver age GFR for 30-39 years old: 107 mL/min/1.73sq m Chronic Kidney Disease: <60 mL/min/1.73sq m Kidney failure: <15 mL/min/1.73sq m eGFR calculated using average adult body mass. Additional eGFR calculator available at: http://www.ProPlan.Mangia/multiple_crcl_2012.htm Performed By: #### P T, CMPX, MG, CDP #### [employer] [address] [place] [address] Albumin mass conc 2.3 g/dL Low 3.5-5.2 [facility] Comment on above: Performed By: #### P T, CMPX, MG, CDP #### [facility] [employer] [address] [place] [address] Albumin/Globulin mass ratio 0.7 {ratio} Low 1.0-2.5 [facility] Comment on above: Performed By: #### P T, CMPX, MG, CDP #### [address] [address] Alkaline Phos 67 U/L Normal 35-104 [facility] Comment on above: Performed By: #### P T, CMPX, MG, CDP #### [address] [address] ALT enzyme act/vol 33 U/L Normal 5-33 [facility] Comment on above: Performed By: #### P T, CMPX, MG, CDP #### [facility] [employer] [address] [place] [address] Anion gap molar conc 11 mmol/L Normal 9-17 [facility] Comment on above: Performed By: #### P T, CMPX, MG, CDP #### [facility] [employer] [address] [place] [address]48 AST enzyme act/vol 41 U/L High <32 [facility] Comment on above: Performed By: #### P T, CMPX, MG, CDP #### [facility] [employer] [address] [place] [address] Bilirubin Ql (U) 0.40 mg/dL Normal 0.3-1.2 [facility] Comment on above: Performed By: #### P T, CMPX, MG, CDP #### [facility] [employer] [address] [place] [address] Calcium mass conc 7.3 mg/dL Low 8.6-10.4 [facility] Comment on above: Performed By: #### P T, CMPX, MG, CDP #### [facility] [employer] [address] [place] [address] Chloride molar conc 105 mmol/L Normal 98-107 [facility] Comment on above: Performed By: #### P T, CMPX, MG, CDP #### [address] [address] CO2 molar conc 18 mmol/L Low 20-31 [facility] Comment on above: Performed By: #### P T, CMPX, MG, CDP #### [facility] [employer] [address] [place] [address] Creatinine mass conc 1.09 mg/dL High 0.50-0.90 [facility] Comment on above: Performed By: #### P T, CMPX, MG, CDP #### [facility] [employer] [address] [place] [address] GFR, Amer >60 Normal >60 [facility] Comment on above: Performed By: #### P T, CMPX, MG, CDP #### [facility] [employer] [address] [place] [address] GFR,non Amer 56 mL/min Low >60 [facility] Comment on above: Performed By: #### P T, CMPX, MG, CDP #### [facility] [employer] [address] [place] [address] Glucose mass conc 128 mg/dL High 70-99 [facility] Comment on above: Performed By: #### P T, CMPX, MG, CDP #### [facility] [employer] [address] [place] [address] Potassium molar conc 3.6 mmol/L Low 3.7-5.3 [facility] Comment on above: Performed By: #### P T, CMPX, MG, CDP #### [facility] [employer] [address] [place] [address] Protein mass conc 5.5 g/dL Low 6.4-8.3 [facility] Comment on above: Performed By: #### P T, CMPX, MG, CDP #### [employer] [address] [place] [address] Sodium molar conc 134 mmol/L Low 135-144 [facility] Comment on above: Performed By: #### P T, CMPX, MG, CDP #### [facility] [address] [place] [address] Urea nitrogen mass conc 17 mg/dL Normal 6-20 [facility] Comment on above: Performed By: #### P T, CMPX, MG, CDP #### [facility] [employer] [address] [place] [address] BUN/CRE Ratio NOT REPORTED Normal - [facility] Comment on above: Performed By: #### P T, CMPX, MG, CDP #### [facility] [employer] [address] [place] [address] Staging: NOT REPORTED Normal [facility] Comment on above: Performed By: #### P T, CMPX, MG, CDP #### [facility] [employer] [address] [place] [address] Lactic Acid,Whole Blon 08-16 Lactic Acid,Whole Bl 1.2 mmol/L Normal 0.7-2.1 [facility] Comment on above: Performed By: #### L ACDS, TROPI, PRCAL, MYCM #### [facility] [employer] [address] [place] [address] Lactic Acid,Whole Bl 1.2 mmol/L Normal 0.7-2.1 [facility] Comment on above: Performed By: #### L ACWB #### [facility] [employer] [address] [place] [address] Magnesiumon 08-16-2018 Magnesium mass conc 2.0 mg/dL Normal 1.6-2.6 [facility] Comment on above: Performed By: #### L ACDS, TROPI, PRCAL, MYCM #### [address] [phone] Mycoplasma Ab,IgMon 08-16-20 18 Mycoplasma Ab,IgM 0.22 Normal <0.91 [facility] Comment on above: Result Comment: Reference Range: <=0.90 Negative 0.91-1.09 Equivocal >=1.10 Positive Performed By: #### L ACDS, TROPI, PRCAL, MYCM #### [address] [id number] PTon 08-16-2018 INR Coag RelTime (PPP) 1.0 {INR} Normal [facility] Comment on above: Result Comment: Therapeutic Range: Moderate Anticoagulant Intensity: INR = 2.0-3.0 High Anticoagulant Intensity: INR = 2.5-3.5 Performed By: #### P T, CMPX, MG, CDP #### [address] [phone] Prothrombin time (PT) Coag time (PPP) 11.0 s Normal 9.0-12.0 [facility] Comment on above: Performed By: #### P T, CMPX, MG, CDP #### [address] [id number] Troponinon 08-16-2018 Troponin I.cardiac mass conc Normal [facility] Comment on above: Result Comment: Refe rence Range: <0.03 Within reference range. 0.03-0.09 Possible myocardial damage. Repeat at appropriate intervals to rule out chronic elevation. >= 0.10 Indicative of myocardial damage. Patients with high levels of Biotin oral intake (i.e >5mg/day) may have falsely decreased Troponin T levels. Samples collected within 8 hours of biotin intake may require additional information for diagnosis. Performed By: #### T ROPI #### [address] [phone] Troponin I.cardiac mass conc ng/mL Normal <0.03 [facility] Comment on above: Result Comment: Trop onin T results cannot be compared to Troponin-I results. Performed By: #### T ROPI #### [address] [phone] XR CHEST (2 VW)on 08-16-2018 XR CHEST (2 VW) EXAMINATION: TWO VIEWS OF THE CHEST 08/16/2018 8:35 am COMPARISON: 08/05/2018 HISTORY: ORDERING SYSTEM PROVIDED HISTORY: cough TECHNOLOGIST PROVIDED HISTORY: cough FINDINGS: Cardiac silhouette is normal in size. Generalized interstitial prominence, at least partially due to hypoaeration. No definite superimposed focal airspace consolidation or pleural effusion, or pneumothorax. Trachea is midline. IMPRESSION: Generalized interstitial prominence. No focal airspace consolidation. Interpreted by: Noe Mitchell MD Signed by: Noe Mitchell MD 08/16/18 Final result Normal [facility] Lactate, Sepsison 08-15-2018 Lactic Acid,Sep Wbld 3.5 mmol/L High 0.5-1.9 [facility] Comment on above: Performed By: #### L ACDS, TROPI, PRCAL, MYCM #### [address] [phone] Lactic Acid, Sepsis NOT REPORTED Normal 0.5-1.9 [facility] Comment on above: Performed By: #### L ACDS, TROPI, PRCAL, MYCM #### [address] [phone] Legionella Ag, Uron 08-15-20 Legionella Ag, Ur Specimen Description .CLEAN CATCH URINE Special Requests NOT REPORTED Direct Exam Urine negative for L. pneumophilia serogroup 1 antigen. Infection due to Legionella cannot be ruled out since (1) other L. pneumophilia serogroups and other Legionella species may cause disease, (2) antigen may not be present in early infection (<3 days). and (3) the level of antigen present in the urine may be below the detectable levels of this test. Report Status FINAL 08/15/2018 Normal [facility] Comment on above: Performed By: #### U LAG #### [address] [place] [address] Procalcitoninon 08-15-2018 Protein mass conc 3.39 ng/mL High <0.09 [facility] Comment on above: Result Comment: Suspected Sepsis: 0.09-0.49 ng/mL Low likelihood of sepsis. 0.50-2.00 ng/mL Increased likelihood of sepsis. Antibiotics encouraged. >2.00 ng/mL High risk of sepsis/shock. Antibiotics strongly encouraged. Suspected Lower Resp Tract Infections: 0.09-0.24 ng/mL Low likelihood of bacterial infection. >0.24 ng/mL Increased likelihood of bacterial infection. Antibiotics encouraged. With successful antibiotic therapy, PCT levels should decrease rapidly. (Half-life of 24 to 36 hours.) Procalcitonin values from samples collected within the first 6 hours of systemic infection may still be low. Retesting may be indicated. Values from day 1 and day 4 can be entered into the Change in Procalcitonin Calculator (www.flirhn-quu-xhxnziwjty.Mangia) to determine the patient's Mortality Risk Prognosis Performed By: #### L ACDS, TROPI, PRCAL, MYCM #### [facility] [employer] [address] [place] [address] Strep pneum Ag,CSF/Uron 08-05 Strep pneum Ag,CSF/Ur Specimen Descripti on .CLEAN CATCH URINE Special Requests NOT REPORTED Direct Exam NEGATIVE: Strep pneumoniae antigen not detected Report Status FINAL 08/15/2018 Normal [facility] Comment on above: Performed By: #### S PAG #### [facility] [employer] [address] [place] [address] Troponinon 08-15-2018 Troponin I.cardiac mass conc ng/mL Normal <0.03 [facility] Comment on above: Result Comment: Trop onin T results cannot be compared to Troponin-I results. Performed By: #### L ACDS, TROPI, PRCAL, MYCM #### [facility] [employer] [address] [place] [address] Troponin I.cardiac mass conc Normal [facility] Comment on above: Result Comment: Refe rence Range: <0.03 Within reference range. 0.03-0.09 Possible myocardial damage. Repeat at appropriate intervals to rule out chronic elevation. >= 0.10 Indicative of myocardial damage. Patients with high levels of Biotin oral intake (i.e >5mg/day) may have falsely decreased Troponin T levels. Samples collected within 8 hours of biotin intake may require additional information for diagnosis. Performed By: #### L ACDS, TROPI, PRCAL, MYCM #### [employer] [facility] [place] [address] Urinalysison 11-18-2017 Bilirubin, Urine Negative Invalid Interpretation Code NEG;NEGATIVE [facility] Blood, Urine Moderate Abnormal NEG;NEGATIVE [facility] Interpretation and review of laboratory results Abnormal Invalid Interpretation Code [facility] Nitrite, Urine Negative Invalid Interpretation Code NEG;NEGATIVE [facility] Protein, Urine Negative Invalid Interpretation Code NEG;NEGATIVE mg/dL [facility] RBCs, Urine 1 /HPF Invalid Interpretation Code 0 - 5 [facility] Squamous Epithelial < 1 Invalid Interpretation Code 0 - 40 /HPF [facility] Urine, bacteria in sediment Rare Invalid Interpretation Code NS;RARE /HPF [facility] Urine, character Hazy Invalid Interpretation Code [facility] Urine, color Yellow Invalid Interpretation Code [facility] Urine, glucose presence Negative Invalid Interpretation Code NEG;NEGATIVE mg/dL [facility] Urine, ketones presence Negative Invalid Interpretation Code NEG;NEGATIVE mg/dL [facility] Urine, leukocyte esterase presence Small Abnormal Negative [facility] Urine, pH 6.0 [pH] Invalid Interpretation Code 4.5 - 8.0 [facility] Urine, specific gravity 1.014 1 Invalid Interpretation Code 1.003 - 1.029 [facility] Urobilinogen, Urine < 2.0 Invalid Interpretation Code <2 mg/dL [facility] WBCs, Urine 6 /HPF High 0 - 5 [facility] CBC and Differentialon 11-17 Basophils 0.7 % Invalid Interpretation Code [facility] Basophils 0.1 K/mcL Invalid Interpretation Code 0 - 0.2 [facility] Eosinophils 0.2 K/mcL Invalid Interpretation Code 0 - 0.5 [facility] Erythrocytes (RBC) 3.97 M/mcL Invalid Interpretation Code 3.7 - 5.0 [facility] Hematocrit (HCT) 35.7 % Invalid Interpretation Code 34.4 - 44.8 % [facility] Hemoglobin (HGB) 12.2 g/dL Invalid Interpretation Code 11.6 - 15.4 g/dL [facility] Interpretation and review of laboratory results Abnormal Invalid Interpretation Code [facility] Lymphocytes 2.1 K/mcL Invalid Interpretation Code 1.0 - 3.7 [facility] MCH 30.6 pg Invalid Interpretation Code 27.9 - 33.9 pg [facility] MCHC 34.0 g/dL Invalid Interpretation Code 33.1 - 35.1 g/dL [facility] MCV 89.8 fL Invalid Interpretation Code 82.6 - 98.9 [facility] Monocytes 0.6 K/mcL Invalid Interpretation Code 0.1 - 0.6 [facility] Neutrophils 6.6 K/mcL Invalid Interpretation Code 1.2 - 6.9 [facility] Platelet mean volume (PMV) 8.6 fL Invalid Interpretation Code 7.0 - 10.6 [facility] Platelets 196 K/mcL Invalid Interpretation Code 162 - 402 [facility] RDW-CA 15.0 % High 10 - 14.4 % [facility] Segmented Neut 69.6 % Invalid Interpretation Code [facility] T8 suppressor/100 cells 1.8 10*3/uL Invalid Interpretation Code [facility] T8 suppressor/100 cells 21.8 10*3/uL Invalid Interpretation Code [facility] T8 suppressor/100 cells 6.1 10*3/uL Invalid Interpretation Code [facility] WBC (Leukocytes) 9.5 K/mcL Invalid Interpretation Code 3.4 - 10.6 [facility] Comprehensive Metabolic Pane lyn 11-17-2017 Alanine aminotransferase (ALT) 18 U/L Invalid Interpretation Code 14 - 65 U/L [facility] Albumin 3.1 g/dL Low 3.2 - 5.2 g/dL [facility] Alkaline phosphatase (ALP) 78 U/L Invalid Interpretation Code 40 - 140 U/L [facility] Aspartate aminotransferase (AST) 7 U/L Invalid Interpretation Code 0 - 45 U/L [facility] Calcium 8.6 mg/dL Invalid Interpretation Code 8.4 - 10.2 mg/dL [facility] Chloride 106 mmol/L Invalid Interpretation Code 98 - 108 mmol/L [facility] CO2 27 mmol/L Invalid Interpretation Code 21 - 32 mmol/L [facility] Creatinine 1.13 mg/dL High 0.4 - 1.1 mg/dL [facility] eGFR (black) mL/min/{1.73_m2} Invalid Interpretation Code ml/min/1.73sq .m [facility] eGFR (non-black) 54 mL/min/{1.73_m2} Low >60 [facility] Glucose 113 mg/dL High 70 - 99 mg/dL [facility] Interpretation and review of laboratory results Abnormal Invalid Interpretation Code [facility] Potassium 3.7 mmol/L Invalid Interpretation Code 3.5 - 5.1 mmol/L [facility] Protein 6.8 g/dL Invalid Interpretation Code 6 - 8 g/dL [facility] Sodium 140 mmol/L Invalid Interpretation Code 135 - 145 mmol/L [facility] Urea nitrogen 17 mg/dL Invalid Interpretation Code 8 - 25 mg/dL [facility] Urine, bilirubin presence 0.4 mg/dL Invalid Interpretation Code 0.3 - 1.2 mg/dL [facility] Lipaseon 11-17-2017 Lipase 167 U/L Invalid Interpretation Code 73 - 393 U/L [facility] Vital Signs Date Time Vital Sign Value Performing Clinician Yovani wolfey 03-03-2023 14:44-0400 Body temperature 98.49 [degF] MASSIMO Shook DPM Work Phone: [facility] 03-03-2023 14:44-0400 Diastolic blood pressure 87 mm[Hg] MASSIMO Shook DPM Work Phone: [facility] 03-03-2023 14:44-0400 Heart rate 94 /min MASSIMO Shook DPM Work Phone: [facility] 03-03-2023 14:44-0400 Systolic blood pressure 139 mm[Hg] MASSIMO Shook DPM Work Phone: [facility] 07-02-2022 09:36-0400 Body height 157.5 cm [employer] Work Phone: [facility] 07-02-2022 09:36-0400 Body mass index (BMI) [Ratio] 38.67 kg/m2 [employer] Work Phone: [facility] 07-02-2022 09:36-0400 Body weight 95.89 kg [employer] Work Phone: [facility] 09-16-2020 20:53-0500 BMI (Body Mass Index) 39.32 kg/m2 [place] 09-16-2020 20:53-0500 Body Temperature 99.5 [degF] [place] 09-16-2020 20:53-0500 Body weight 97.52 kg [place] 09-16-2020 20:53-0500 BP Diastolic 109 mm[Hg] [place] 09-16-2020 20:53-0500 BP Systolic 189 mm[Hg] [place] 09-16-2020 20:53-0500 Height 157.5 cm [place] 09-16-2020 20:53-0500 Pulse (Heart Rate) 99 /min [place], [place] 09-16-2020 20:53-0500 Pulse Oximetry 96 % [place] 09-16-2020 20:53-0500 Respiratory Rate 18 /min [place] Encounters Encounter Date Encounter Type Care Provider Facility Start: 10-29-2023 End: 10-29-2023 ambulatory TIFFANIE CASAS Not Available Start: 08-23-2023 End: 08-26-2023 [facility] Start: 08-20-2023 End: 08-20-2023 ambulatory TIFFANIE CASAS Not Available Start: 06-15-2023 End: 06-18-2023 ambulatory [facility] Start: 06-15-2023 End: 06-15-2023 Subsequent hospital visit by physician Felipe Adam MD Work Phone: [facility] Laboratory Comment on above: Mixed hyperlipidemia Start: 05-17-2023 End: 05-18-2023 ambulatory [facility] Start: 04-03-2023 ambulatory FELIPE BACK [facility] Start: 03-03-2023 End: 03-07-2023 ambulatory ROBBIN SHOOK [facility] Start: 03-03-2023 End: 03-03-2023 Office outpatient new 45 minutes MASSIMO Shook DPM Work Phone: [facility] Comment on above: Charcot arthropathy of midfoot (Primary Dx); Gastrocnemius equinus, unspecified laterality; Foot pain, left Start: 02-11-2023 End: 02-12-2023 ambulatory [facility] Facility: Start: 02-05-2023 End: 02-06-2023 ambulatory [facility] Start: 02-05-2023 End: 02-05-2023 Subsequent hospital visit by physician Felipe Adam MD Work Phone: [facility] Laboratory Comment on above: Pelvic pressure in f emale Start: 02-04-2023 End: 02-05-2023 ambulatory [facility] Facility:H1 Start: 01-28-2023 End: 01-29-2023 ambulatory [facility] Facility:[facility]1 Start: 01-06-2023 End: 01-06-2023 Emergency department patient visit [facility] Start: 07-09-2022 End: 07-09-2022 Subsequent hospital visit by physician Samantha Lino RD, LD Work Phone: [facility] Diet and Nutrition Comment on above: Arrived Start: 07-02-2022 End: 07-02-2022 Subsequent hospital visit by physician [facility] Work Phone: [facility] Diabetic Education Start: 06-25-2022 End: 06-27-2022 Subsequent hospital visit by physician Se[facility] Additional Xray [facility] Comment on above: Foreign body (FB) in soft tissue Start: 06-25-2022 End: 06-27-2022 Subsequent hospital visit by physician [facility]ri [facility]anner [facility] Comment on above: Pain of foot, unspec ified laterality; Closed nondisplaced fracture of second metatarsal bone of left foot, initial encounter; Closed nondisplaced fracture of lateral cuneiform of left foot, initial encounter Start: 05-27-2022 End: 2022 Subsequent hospital visit by physician [facility] Ultrasound Room [facility] Comment on above: Neck mass Start: 04-28-2022 End: 04-29-2022 ambulatory [facility] Start: 04-28-2022 End: 04-28-2022 Subsequent hospital visit by physician Felipe Adam MD Work Phone: [facility] Comment on above: Acute cystitis with hematuria Start: 04-12-2022 End: 04-12-2022 Subsequent hospital visit by physician Felipe Adam MD Work Phone: [facility] Comment on above: Fatigue, unspecified type; Encounter for screening for HIV; Mixed hyperlipidemia; Hyperglycemia; Chronic renal impairment, stage 3b (HCC) Start: 02-05-2022 End: 02-05-2022 Subsequent hospital visit by physician Christel Donohue PT [facility] Start: 02-04-2022 End: 02-04-2022 Patient encounter procedure [facility] [address] Start: 02-03-2022 End: 02-03-2022 Subsequent hospital visit by physician Hilaria Trujillo [facility] Start: 01-29-2022 End: 01-29-2022 Subsequent hospital visit by physician Beverly Rangel [employer] [facility] Comment on above: Arrived Start: 01-27-2022 End: 01-27-2022 Subsequent hospital visit by physician Christel Donohue PT [facility] Comment on above: Arrived Start: 01-24-2022 End: 01-24-2022 Subsequent hospital visit by physician Vanessa Garcia PT [facility] Comment on above: Arrived Start: 01-22-2022 End: 01-22-2022 Subsequent hospital visit by physician Beverly Rangel [employer] [facility] Start: 01-17-2022 End: 01-17-2022 Subsequent hospital visit by physician Beverly Rangel [employer] [facility] Comment on above: Arrived Start: 01-13-2022 End: 01-13-2022 Subsequent hospital visit by physician Christel Donohue PT [facility] Start: 01-03-2022 End: 01-03-2022 Subsequent hospital visit by physician Beverly Rangel [employer] [facility] Comment on above: Arrived Start: 12-31-2021 End: 12-31-2021 Subsequent hospital visit by physician Cheryl Herman OT [facility] Comment on above: Arrived Start: 12-30-2021 End: 12-30-2021 Subsequent hospital visit by physician Cheryl Herman OT [facility] Comment on above: Arrived Start: 12-23-2021 End: 12-23-2021 Subsequent hospital visit by physician Cheryl Herman OT [facility] Comment on above: Arrived Start: 11-29-2021 End: 11-29-2021 ambulatory FELIPE ADAM [facility] Start: 08-01-2021 End: 08-01-2021 Subsequent hospital visit by physician Felipe Adam MD Work Phone: [facility] Comment on above: Frequent UTI; Urinary urgency; Urinary frequency Start: 07-11-2021 End: 07-11-2021 Subsequent hospital visit by physician Felipe Adam MD Work Phone: [facility] Comment on above: Frequent UTI; Urinary urgency; Urinary frequency Start: 06-11-2021 End: 06-11-2021 Subsequent hospital visit by physician Felipe Adam MD Work Phone: [facility] Comment on above: Acute cystitis with hematuria; Recurrent UTI Start: 05-27-2021 End: 05-27-2021 Subsequent hospital visit by physician Felipe Adam MD Work Phone: [facility] Comment on above: Difficult or painful urination Start: 05-20-2021 End: 05-20-2021 Subsequent hospital visit by physician Felipe Adam MD Work Phone: [facility] Start: 04-13-2021 End: 04-13-2021 Subsequent hospital visit by physician Felipe Adam MD Work Phone: [facility] Comment on above: Acute cystitis with hematuria Start: 02-13-2021 End: 02-13-2021 Subsequent hospital visit by physician [facility] Covid19 Pat Screening Schedule [facility] Comment on above: Suspected COVID-19 v irus infection Start: 01-21-2021 End: 01-21-2021 Subsequent hospital visit by physician [facility] Covid19 Pat Screening Schedule [facility] Comment on above: Viral illness Start: 11-15-2020 End: 11-15-2020 Subsequent hospital visit by physician [facility] Covid19 Pat Screening Schedule [facility] Comment on above: Arrived Start: 09-16-2020 End: 09-16-2020 Emergency department patient visit Robbin Sales Toribio Work Phone: [facility] ED Comment on above: Acute thoracic back pain, unspecified back pain laterality (Primary Dx) Start: 08-24-2020 End: 08-24-2020 Subsequent hospital visit by physician Felipe Adam [facility] Comment on above: Epidural abscess Start: 08-08-2020 End: 08-08-2020 Subsequent hospital visit by physician Felipe Adam [facility] Comment on above: SOB (shortness of br eath) Start: 07-24-2020 End: 07-24-2020 Subsequent hospital visit by physician Felipe Back [facility] Comment on above: Epidural abscess Start: 06-07-2020 End: 06-07-2020 Subsequent hospital visit by physician Felipe Back [facility] Start: 05-25-2020 End: 05-25-2020 Subsequent hospital visit by physician Felipe Adam [facility] Comment on above: Vitamin D deficiency ; Mixed hyperlipidemia; Hyperglycemia Start: 12-14-2019 End: 12-14-2019 Subsequent hospital visit by physician Felipe Back [facility] Comment on above: MRSA (methicillin re sistant Staphylococcus aureus) septicemia (HCC) Start: 09-24-2019 End: 09-24-2019 Subsequent hospital visit by physician Felipe Adam MD Work Phone: [facility] Start: 09-12-2019 End: 09-12-2019 Subsequent hospital visit by physician Felipe Adam MD Work Phone: [facility] Start: 08-29-2019 End: 08-29-2019 Subsequent hospital visit by physician [facility] Schedule [facility] Comment on above: Arrived Start: 07-28-2019 End: 07-30-2019 Subsequent hospital visit by physician Tennille Additional Xray At [facility] Radiology Comment on above: MRSA (methicillin re sistant Staphylococcus aureus) septicemia (HCC) Start: 06-17-2019 End: 06-17-2019 Subsequent hospital visit by physician Felipe Adam [facility] Laboratory Comment on above: MRSA (methicillin re sistant Staphylococcus aureus) infection Start: 02-03-2019 End: 02-04-2019 Patient encounter procedure TIFFANIE CASAS [facility] Start: 02-03-2019 End: 02-03-2019 Subsequent hospital visit by physician Tiffanie Casas Work Phone: [facility] MRI Comment on above: Brachial neuritis; Peripheral nerve disorder; Spasm of muscle Start: 11-10-2018 End: 11-10-2018 Patient encounter procedure Andrey Early Facility:[facility] Start: 10-18-2018 End: 10-18-2018 Patient encounter procedure Andrey Early Work Phone: [facility] Start: 10-03-2018 Patient encounter procedure Dav Hartman Facility:[facility] Start: 10-03-2018 End: 10-03-2018 Patient encounter procedure [facility] Start: 09-20-2018 End: 09-21-2018 Patient encounter procedure Gosia Hartman Facility:[facility] Start: 09-20-2018 Patient encounter procedure Facility:[id number] Start: 09-13-2018 Patient encounter procedure GOSIA HARTMAN [facility] Start: 09-06-2018 End: 09-06-2018 Patient encounter procedure Historical Provider [facility] Start: 08-31-2018 End: 08-31-2018 Patient encounter procedure Historical Provider [facility] Start: 08-27-2018 End: 08-28-2018 Patient encounter procedure Gosia Hartman Facility:[facility] Start: 08-27-2018 Patient encounter procedure Facility:[id number] Start: 08-15-2018 End: 08-25-2018 Evaluation and management of inpatient [facility] Start: 04-02-2018 End: 04-02-2018 Patient encounter procedure Melchor Kvng Facility:[facility] Start: 03-23-2018 Patient encounter procedure Shanice Juares Facility:[facility] Start: 02-04-2018 End: 02-04-2018 Ambulatory Melchor Weston Kvng [facility] Start: 11-24-[address] [facility] Start: 11-17-2017 End: 11-17-2017 Ambulatory Ceferino Jory Work Phone: [facility] Start: 10-20-2017 End: 10-20-2017 Ambulatory DAKSHA BETANCOURT [facility] Start: 10-20-[address] [facility] Start: 10-09-2017 Ambulatory [facility] Start: 10-09-2017 End: 10-09-[address] [facility] Start: 09-16-[address] [facility] Start: 08-03-2017 Ambulatory [facility] Start: 03-31-2017 End: 03-31-2017 Ambulatory SHANICE GOLDSTEIN M[facility] Procedures Date Procedure Procedure Detail Performing Clinician Start: 06-15-2023 Lipid panel Felipe Adam MD Work Phone: Start: 02-05-2023 Chloride bld Erik Lyman DPM Work Phone: Start: 02-05-2023 Smr prim src wet prabhjot nt nfct agt Luis Mclean PA-C Work Phone: Start: 06-25-2022 Mri lower extrem oth /thn jt w/o & w/contr matr Robbin Sánchez DPM Work Phone: Start: 06-25-2022 Radiologic examinati on foot 2 views Micky Lauren MD Work Phone: Start: 05-27-2022 Us soft tissue head & neck real time imge docm Felipe Adam MD Work Phone: Start: 04-12-2022 Comprehensive metabo lic panel Felipe Adam MD Work Phone: Start: 04-12-2022 Lipid panel Felipe Adam MD Work Phone: Start: 02-04-2022 MR lumbar spine wo con Start: 02-04-2022 XR pre/post mri xray Start: 09-24-2021 Microscopic observat ion [Identifier] in Cervix by Cyto stain [facility] Work Phone: Start: 08-01-2021 Urnls dip stick/tabl et reagent auto microscopy Lita Weeks MD Work Phone: Start: 07-11-2021 Urnls dip stick/tabl et reagent auto microscopy Lita Weeks MD Work Phone: Start: 05-20-2021 Electrolyte panel Gregory Forbes MD Work Phone: Start: 05-20-2021 Urnls dip stick/tabl et rgnt auto w/o microscopy Gregory Forbes MD Work Phone: Start: 01-21-2021 COVID-19 Pattiesebastian Tafoya lliams HELICOPTER ENGINEER - CLINICAL MICROBIOLOGIST Work Phone: Start: 11-15-2020 COVID-19 Gosia Kevinu garcíaui Work Phone: Start: 09-16-2020 Urnls dip stick/tabl et rgnt auto w/o microscopy Robbin Rooney Work Phone: Start: 09-16-2020 End: 09-16-2020 Blood count complete auto&auto difrntl wbc Robbin Rooney Work Phone: Start: 09-16-2020 Sedimentation rate r bc automated Robbin Rooney Work Phone: Start: 08-24-2020 Blood count complete auto&auto difrntl wbc Gosia Hartman Work Phone: Start: 08-24-2020 C-reactive protein Gosia Hartman Work Phone: Start: 08-24-2020 Sedimentation rate r bc automated Gosia Hartman Work Phone: Start: 07-24-2020 Blood count complete auto&auto difrntl wbc GosiaTae Pembertoni Work Phone: Start: 07-24-2020 C-reactive protein GosiaTae NunnHartman Work Phone: Start: 07-24-2020 Sedimentation rate r bc automated Gosia Hartman Work Phone: Start: 06-07-2020 Protein total xcpt refractometry urine Heather Forbes Work Phone: Start: 06-07-2020 Urnls dip stick/tabl et rgnt auto w/o microscopy Heather Forbes Work Phone: Start: 05-25-2020 25 hydroxy includes fractions if performed Felipe Back Work Phone: Start: 05-25-2020 Comprehensive metabo lic panel Felipe Back Work Phone: Start: 05-25-2020 Hemoglobin glycosyla jamia a1c Felipe Back Work Phone: Start: 05-25-2020 Lipid panel Felipe Back Work Phone: Start: 05-25-2020 Lipoprotein direct measurement ldl cholesterol Felipe Back Work Phone: Start: 05-25-2020 PATIENT FASTING? Felipe Back Work Phone: Start: 12-14-2019 C-reactive protein Azalea Longthorne Work Phone: Start: 09-24-2019 Hemoglobin glycosyla jamia a1c Janel Allen HELICOPTER ENGINEER - CLINICAL MICROBIOLOGIST Work Phone: Start: 09-24-2019 VITAMIN B12 & FOLATE Ja danny Allen HELICOPTER ENGINEER - CLINICAL MICROBIOLOGIST Work Phone: Start: 07-28-2019 Radex spine cervical 4 or 5 views Azalea Longthorne Work Phone: Start: 07-28-2019 Blood count complete auto&auto difrntl wbc Azalea Longthorne HELICOPTER ENGINEER - CLINICAL MICROBIOLOGIST Work Phone: Start: 07-28-2019 C-reactive protein Azalea Knight HELICOPTER ENGINEER - CLINICAL MICROBIOLOGIST Work Phone: Start: 06-17-2019 Albumin serum plasma /whole blood Heather Forbes Work Phone: Start: 06-17-2019 Assay of magnesium Soumyaap na Andrei Work Phone: Start: 06-17-2019 Assay of phosphorus inorganic Heather Andrei Work Phone: Start: 06-17-2019 Assay of urea nitrog en quantitative Heather Andrei Work Phone: Start: 06-17-2019 Blood count hemoglobin Heather Forbes Work Phone: Start: 06-17-2019 Calcium total Heather Mark king Work Phone: Start: 06-17-2019 Electrolyte panel Ashelyn a Andrei Work Phone: Start: 06-17-2019 Protein total xcpt refractometry urine Heather Forbes Work Phone: Start: 06-17-2019 Urinalysis microscop ic only Heather Forbes Work Phone: Start: 06-17-2019 Urnls dip stick/tabl et rgnt auto w/o microscopy Heather Forbes Work Phone: Start: 06-17-2019 C-reactive protein Gosia Hartman Work Phone: Start: 06-17-2019 Sedimentation rate r bc automated Gosia Hartman Work Phone: Start: 02-03-2019 MRI of cervical spin e without contrast External Transcribed Start: 10-03-2018 End: 10-03-2018 Microscopic examination of blood, culture Dav Hartman Comment on above: Performed By: #### B C #### Unless otherwise noted, all testing performed by [place] [address] [address] [place] [address] CLIA: [id number] [employer] Engine Operator: Harshad Solano M.D. Start: 09-06-2018 End: 09-06-2018 LABS (OUTSIDE) Historical Provider Start: 08-31-2018 End: 08-31-2018 LABS (OUTSIDE) Historical Provider Start: 08-25-2018 IP CONSULT TO HOME C ARE NEEDS [facility] Start: 08-25-2018 Assay of magnesium WASTae APPLE Start: 08-25-2018 Basic metabolic pane l calcium total JVMARISABEL APPLE Start: 08-25-2018 Blood count complete auto&auto difrntl wbc JV AP[facility] Start: 08-25-2018 Procalcitonin (pct) WAS MARISABEL CASASAN Start: 08-25-2018 DISCHARGE PATIENT JUJU APPLE Start: 08-25-2018 PULSE OXIMETRY, CONTINUOUS JVMARISABEL APPLE Start: 08-25-2018 INSERT PICC LINE JV CASASAN Start: 08-25-2018 MISCELLANEOUS NURSIN G CARE ORDER (SPECIFY) JV CASASAN Start: 08-25-2018 DME ORDER FOR WALKER OP JVMARISABEL APPLE Start: 08-25-2018 PULSE OXIMETRY, CONTINUOUS JVMARISABEL APPLE Start: 08-25-2018 NOTIFY PHYSICIAN (SPECIFY) JV AP[facility] Start: 08-25-2018 NURSING COMMUNICATION W MITCHEL APPLE Start: 08-25-2018 NASAL CANNULA OXYGEN BRITTA APPLE Start: 08-25-2018 INCENTIVE SPIROMETRY RT JV APPLE Start: 08-25-2018 INITIATE OXYGEN THER APY PROTOCOL JV CASASAN Start: 08-25-2018 PULSE OXIMETRY, CONTINUOUS JVMARISABEL APPLE Start: 08-25-2018 Assay of magnesium WASTae APPLE Start: 08-25-2018 Basic metabolic pane l calcium total JVMARISABEL APPLE Start: 08-25-2018 Blood count complete auto&auto difrntl wbc JV APPLE Start: 08-25-2018 PULSE OXIMETRY, CONTINUOUS JVMARISABEL APPLE Start: 08-25-2018 PULSE OXIMETRY, CONTINUOUS JVMARISABEL APPLE Start: 08-24-2018 PULSE OXIMETRY, CONTINUOUS JVMARISABEL APPLE Start: 08-24-2018 DIET GENERAL JV EDWARD N Start: 08-24-2018 OT EVAL AND TREAT WASSAMIR APPLE Start: 08-24-2018 PT EVAL AND TREAT JUJU APPLE Start: 08-24-2018 PULSE OXIMETRY, CONTINUOUS JV APPLE Start: 08-24-2018 PULSE OXIMETRY, CONTINUOUS JV APPLE Start: 08-24-2018 INCENTIVE SPIROMETRY RT JV APPLE Start: 08-24-2018 INITIATE OXYGEN THER APY PROTOCOL JV APPLE Start: 08-24-2018 PULSE OXIMETRY, CONTINUOUS JV APPLE Start: 08-24-2018 ACID FAST CULTURE WI TH SMEAR JV APPLE Start: 08-24-2018 FUNGAL STAIN JV Carreon Start: 08-24-2018 TISSUE CULTURE JV LANG Start: 08-24-2018 FUNGUS CULTURE JV LANG Start: 08-24-2018 PULSE OXIMETRY, CONTINUOUS JV APPLE Start: 08-24-2018 Procalcitonin (pct) WAS MARISABEL APPLE Start: 08-24-2018 PULSE OXIMETRY, CONTINUOUS JV APPLE Start: 08-24-2018 DRAIN CARE JV LEON Velma Start: 08-24-2018 MISCELLANEOUS NURSIN G CARE ORDER (SPECIFY) JV APPLE Start: 08-24-2018 TRANSFER PATIENT JV APPLE Start: 08-24-2018 FLUORO FOR SURGICAL PROCEDURES JV APPLE Start: 08-23-2018 ANAEROBIC AND AEROBI C CULTURE JV APPLE Start: 08-23-2018 PULSE OXIMETRY, CONTINUOUS JV APPLE Start: 08-23-2018 PULSE OXIMETRY, CONTINUOUS JV APPLE Start: 08-23-2018 PULSE OXIMETRY, CONTINUOUS JV APPLE Start: 08-23-2018 IP CONSULT TO IV TEAM Jone APPLE Start: 08-23-2018 INCENTIVE SPIROMETRY RT JV APPLE Start: 08-23-2018 INITIATE OXYGEN THER APY PROTOCOL JV APPLE Start: 08-23-2018 PULSE OXIMETRY, CONTINUOUS JV APPLE Start: 08-23-2018 Blood count complete auto&auto difrntl wbc JV APPLE Start: 08-23-2018 Comprehensive metabo lic panel JV APPLE Start: 08-23-2018 Reticulated platelet assay JV APPLE Start: 08-23-2018 PULSE OXIMETRY, CONTINUOUS JV APPLE Start: 08-23-2018 PULSE OXIMETRY, CONTINUOUS JVMARISABEL APPLE Start: 08-22-2018 PULSE OXIMETRY, CONTINUOUS JVMARISABEL APPLE Start: 08-22-2018 PULSE OXIMETRY, CONTINUOUS JVMARISABEL APPLE Start: 08-22-2018 PULSE OXIMETRY, CONTINUOUS JVMARISABEL APPLE Start: 08-22-2018 INCENTIVE SPIROMETRY RT JVMARISABEL APPLE Start: 08-22-2018 INITIATE OXYGEN THER APY PROTOCOL JVMARISAEBL APPLE Start: 08-22-2018 PULSE OXIMETRY, CONTINUOUS JVMARISABEL APPLE Start: 08-22-2018 Assay of magnesium SHOAIB APPLE Start: 08-22-2018 Blood count complete auto&auto difrntl wbc JV APPLE Start: 08-22-2018 VANCOMYCIN, TROUGH SHOAIB APPLE Start: 08-22-2018 PULSE OXIMETRY, CONTINUOUS JV APPLE Start: 08-22-2018 PULSE OXIMETRY, CONTINUOUS JVMARISABEL APPLE Start: 08-21-2018 PULSE OXIMETRY, CONTINUOUS JV APPLE Start: 08-21-2018 Procalcitonin (pct) WAS MARISABEL APPLE Start: 08-21-2018 PULSE OXIMETRY, CONTINUOUS JV APPLE Start: 08-21-2018 PULSE OXIMETRY, CONTINUOUS JV APPLE Start: 08-21-2018 Mri lower extrem oth /thn jt w/o & w/contr matr JVMARISABEL APPLE Start: 08-21-2018 INCENTIVE SPIROMETRY RT JV APPLE Start: 08-21-2018 INITIATE OXYGEN THER APY PROTOCOL JV APPLE Start: 08-21-2018 PULSE OXIMETRY, CONTINUOUS JV APPLE Start: 08-21-2018 Assay of magnesium SHOAIB APPLE Start: 08-21-2018 Blood count complete auto&auto difrntl wbc VJ APPLE Start: 08-21-2018 PULSE OXIMETRY, CONTINUOUS VJMARISABEL APPLE Start: 08-21-2018 PULSE OXIMETRY, CONTINUOUS JV APPLE Start: 08-20-2018 PULSE OXIMETRY, CONTINUOUS JVMARISABEL APPLE Start: 08-20-2018 MISCELLANEOUS NURSIN G CARE ORDER (SPECIFY) JV APPLE Start: 08-20-2018 Radex foot complete minimum 3 views JVMARISABEL APPLE Start: 08-20-2018 PULSE OXIMETRY, CONTINUOUS JVMARISABEL APPLE Start: 08-20-2018 C-reactive protein SHOAIB APPLE Start: 08-20-2018 SEDIMENTATION RATE SHOAIB APPLE Start: 08-20-2018 PULSE OXIMETRY, CONTINUOUS JV APPLE Start: 08-20-2018 INCENTIVE SPIROMETRY RT JV APPLE Start: 08-20-2018 INITIATE OXYGEN THER APY PROTOCOL JV APPLE Start: 08-20-2018 PULSE OXIMETRY, CONTINUOUS JV APPLE Start: 08-20-2018 Assay of magnesium SHOAIB APPLE Start: 08-20-2018 Blood count complete auto&auto difrntl wbc JV APPLE Start: 08-20-2018 PULSE OXIMETRY, CONTINUOUS JV APPLE Start: 08-20-2018 PULSE OXIMETRY, CONTINUOUS JV APPLE Start: 08-19-2018 PULSE OXIMETRY, CONTINUOUS JV APPLE Start: 08-19-2018 IP CONSULT TO ORTHOP EDIC SURGERY JV APPLE Start: 08-19-2018 Procalcitonin (pct) WAS MARISABEL APPLE Start: 08-19-2018 PULSE OXIMETRY, CONTINUOUS JV APPLE Start: 08-19-2018 Mri spinal canal cer vical w/o & w/contr matrl JV APPLE Start: 08-19-2018 Mri spinal canal lum bar w/o & w/contr matrl JV APPLE Start: 08-19-2018 Mri spinal canal tho racic w/o & w/contr matrl JV APPLE Start: 08-19-2018 PULSE OXIMETRY, CONTINUOUS JV APPLE Start: 08-19-2018 INCENTIVE SPIROMETRY RT JV APPLE Start: 08-19-2018 INITIATE OXYGEN THER APY PROTOCOL JV APPLE Start: 08-19-2018 PULSE OXIMETRY, CONTINUOUS JV APPLE Start: 08-19-2018 IP CONSULT TO IV TEAM W MITCHEL APPLE Start: 08-19-2018 Assay of magnesium SHOAIB APPLE Start: 08-19-2018 Blood count complete auto&auto difrntl wbc JV APPLE Start: 08-19-2018 PULSE OXIMETRY, CONTINUOUS JV APPLE Start: 08-19-2018 PULSE OXIMETRY, CONTINUOUS JV APPLE Start: 08-18-2018 PULSE OXIMETRY, CONTINUOUS JV APPLE Start: 08-18-2018 PULSE OXIMETRY, CONTINUOUS JV APPLE Start: 08-18-2018 PULSE OXIMETRY, CONTINUOUS JV APPLE Start: 08-18-2018 TELEMETRY MONITORING NM BRENDA APPLE Start: 08-18-2018 INCENTIVE SPIROMETRY RT JV APPLE Start: 08-18-2018 INITIATE OXYGEN THER APY PROTOCOL JV APPLE Start: 08-18-2018 PULSE OXIMETRY, CONTINUOUS JV APPLE Start: 08-18-2018 Assay of magnesium SHOAIB APPLE Start: 08-18-2018 Blood count complete auto&auto difrntl wbc JV APPLE Start: 08-18-2018 VANCOMYCIN, TROUGH SHOAIB APPLE Start: 08-18-2018 PULSE OXIMETRY, CONTINUOUS JV APPLE Start: 08-18-2018 PULSE OXIMETRY, CONTINUOUS JV APPLE Start: 08-17-2018 PULSE OXIMETRY, CONTINUOUS JV APPLE Start: 08-17-2018 Procalcitonin (pct) WAS MARISABEL APPLE Start: 08-17-2018 PULSE OXIMETRY, CONTINUOUS JV APPLE Start: 08-17-2018 CULTURE BLOOD #1 JV APPLE Start: 08-17-2018 PULSE OXIMETRY, CONTINUOUS JV APPLE Start: 08-17-2018 Echo tthrc r-t 2d w/wom-mode compl spec&colr d JV APPLE Start: 08-17-2018 INCENTIVE SPIROMETRY RT JV APPLE Start: 08-17-2018 INITIATE OXYGEN THER APY PROTOCOL JV APPLE Start: 08-17-2018 PULSE OXIMETRY, CONTINUOUS JV APPLE Start: 08-17-2018 Assay of magnesium SHOAIB APPLE Start: 08-17-2018 Blood count complete auto&auto difrntl wbc JV APPLE Start: 08-17-2018 C-reactive protein SHOAIB APPLE Start: 08-17-2018 SEDIMENTATION RATE SHOAIB APPLE Start: 08-17-2018 PULSE OXIMETRY, CONTINUOUS JV APPLE Start: 08-17-2018 Echo tthrc r-t 2d w/wom-mode compl spec&colr d JV APPLE Start: 08-17-2018 PULSE OXIMETRY, CONTINUOUS JV APPLE Start: 08-16-2018 PULSE OXIMETRY, CONTINUOUS JV APPLE Start: 08-16-2018 PULSE OXIMETRY, CONTINUOUS JV APPLE Start: 08-16-2018 PULSE OXIMETRY, CONTINUOUS JV APPLE Start: 08-16-2018 Dup-scan xtr veins complete bilateral study JV APPLE Start: 08-16-2018 Echo tthrc r-t 2d w/wom-mode compl spec&colr d JV APPLE Start: 08-16-2018 Ct head/brain w/o co ntrast material JV APPLE Start: 08-16-2018 Radiologic exam ches t 2 views JV APPLE Start: 08-16-2018 INCENTIVE SPIROMETRY RT JV APPLE Start: 08-16-2018 INITIATE OXYGEN THER APY PROTOCOL JV APPLE Start: 08-16-2018 PULSE OXIMETRY, CONTINUOUS JV APPLE Start: 08-16-2018 CONTACT ISOLATION JUJU APPLE Start: 08-16-2018 Assay of lactate JV APPLE Start: 08-16-2018 CALCIUM, IONIZED JV APPLE Start: 08-16-2018 IP CONSULT TO IV TEAM W MITCHEL APPLE Start: 08-16-2018 Assay of magnesium SHOAIB APPLE Start: 08-16-2018 Blood count complete auto&auto difrntl wbc JV APPLE Start: 08-16-2018 Prothrombin time JV APPLE Start: 08-16-2018 PULSE OXIMETRY, CONTINUOUS JV APPLE Start: 08-16-2018 DAILY WEIGHTS JV CANTRELL Start: 08-16-2018 PULSE OXIMETRY, CONTINUOUS JV APPLE Start: 08-16-2018 EKG 12-LEAD JV LEON N Start: 08-16-2018 Assay of lactate JV APPLE Start: 08-16-2018 Troponin I.cardiac m ass conc JV APPLE Start: 08-15-2018 PULSE OXIMETRY, CONTINUOUS JV APPLE Start: 08-15-2018 INITIATE RT PROTOCOL BRITTA GUTIERREZ APPLE Start: 08-15-2018 LEGIONELLA ANTIGEN, URINE JV APPLE Start: 08-15-2018 STREP PNEUMONIAE ANTIGEN JV APPLE Start: 08-15-2018 IP CONSULT TO NEUROLOGY JV APPLE Start: 08-15-2018 Assay of lactate JV APPLE Start: 08-15-2018 Culture bacterial bl ood aerobic w/id isolates JV APPLE Start: 08-15-2018 CULTURE BLOOD #1 JV APPLE Start: 08-15-2018 MYCOPLASMA PNEUMONIA E ANTIBODY, IGM JV APPLE Start: 08-15-2018 Procalcitonin (pct) WAS MARISABEL APPLE Start: 08-15-2018 Troponin I.cardiac m ass conc JV APPLE Start: 08-15-2018 BATHROOM PRIVILEGES WITH ASSISTANCE JV APPLE Start: 08-15-2018 TELEMETRY MONITORING BRITTA APPLE Start: 08-15-2018 Cul bact xcpt urine blood/stool aerobic isol JV APPLE Start: 08-15-2018 ENCOURAGE DEEP BREAT KIERRA AND COUGHING JV APPLE Start: 08-15-2018 FULL CODE JV LEON Velma Start: 08-15-2018 INCENTIVE SPIROMETRY RT JV APPLE Start: 08-15-2018 INITIATE OXYGEN THER APY PROTOCOL JV APPLE Start: 08-15-2018 INTAKE AND OUTPUT JUJU APPLE Start: 08-15-2018 IP CONSULT TO INFECT IOUS DISEASES JV APPLE Start: 08-15-2018 Microscopic observat ion Gram stain Nom (Unsp spec) JV APPLE Start: 08-15-2018 NOTIFY PHYSICIAN (SPECIFY) JV APPLE Start: 08-15-2018 PHARMACY TO DOSE VANCOMYCIN JV AP[facility] Start: 08-15-2018 PLACE INTERMITTENT PNEUMATIC COMPRESSION DEVICE JV AP[facility] Start: 08-15-2018 PULSE OXIMETRY, CONTINUOUS JV APPLE Start: 08-15-2018 VITAL SIGNS JV LEON Velma Start: 08-15-2018 PATIENT STATUS (DIRECT) JV APPLE Start: 03-20-2017 Microscopic observat ion [Identifier] in Cervix by Cyto stain Tiffanie Casas Plan of Treatment Date Care Activity Detail Author Start: 2029 Shingles Vaccine (1 of 2) Shingles Vaccine (1 of 2) [facility] [place] Start: 04-12-2027 Lipid panel Lipids [facility] [employer] Start: 05-14-2026 Lipid panel [employer] Start: 05-25-2025 Lipid panel Lipid screen [facility] [place] Start: 09-24-2024 Screening for malignant neoplasm of cervix [facility] Start: 09-08-2024 DTaP/Tdap/Td vaccine (2 - Td or Tdap) DTaP/Tdap/Td vaccine (2 - Td or Tdap) [facility] Start: 09-08-2024 DTaP/Tdap/Td vaccine (2 - Td) DTaP/Tdap/Td vaccine (2 - Td) [place], [place] Start: 09-08-2024 Tetanus vaccination [facility] Start: 05-17-2024 GFR test (Diabetes, CKD 3-4, OR last GFR 15-59) GFR test (Diabetes, CKD 3-4, OR last GFR 15-59) [facility] Start: 05-14-2024 Diabetes screen Diabetes screen [facility] Start: 05-11-2024 Lipid panel Lipid screen [place], [place] Start: 05-11-2024 Lipid screen Lipid screen [place], [place] Start: 03-23-2024 Depression Monitoring Depression Monitoring [facility] Start: 02-06-2024 GFR test (Diabetes, CKD 3-4, OR last GFR 15-59) GFR test (Diabetes, CKD 3-4, OR last GFR 15-59) [facility] Start: 02-06-2024 Hemoglobin A1c measurement A1C test (Diabetic or Prediabetic) [facility] Start: 08-13-2023 End: 08-13-2023 Patient encounter procedure [facility] Start: 06-22-2023 End: 06-22-2023 Patient encounter procedure 06/22/2023 11:15 AM EDT Office Visit [facility] [address] [place] [id number] Felipe Adam MD [address] [place] [address] [facility] Start: 06-05-2023 Influenza vaccination Sequential Influenza Vaccine (Season Ended) [facility] Start: 05-05-2023 Influenza vaccination [facility] Start: 04-14-2023 End: 04-14-2023 Patient encounter procedure 04/14/2023 Office Visit Family Medicine Felipe Adam MD [address] [place] [id number] [facility] Start: 04-12-2023 Hemoglobin A1c measurement A1C test (Diabetic or Prediabetic) [facility] [employer] Start: 04-11-2023 Depression Monitoring Depression Monitoring [facility] [employer] Start: 04-11-2023 History and physical examination, annual for health maintenance Wellness Visit [facility] Start: 12-25-2022 End: 12-25-2022 Patient encounter procedure 12/25/2022 Office Visit Infectious Diseases Dav Hartman MD [address] [facility] [place] [address] [facility]. Start: 09-24-2022 Diabetes screen Diabetes screen [place], [place] Start: 08-07-2022 End: 08-07-2022 Patient encounter procedure 08/07/2022 Office Visit Urology Luis Mclean, PA-C [address] [facility] [address] [address] [facility] Start: 07-15-2022 End: 07-15-2022 Nursing evaluation of patient and report 07/15/2022 Nurse Only Family Medicine [facility] Start: 07-09-2022 End: 07-09-2022 Patient encounter procedure 07/09/2022 Appointment IP Unit Samantha Lino RD, LD [facility] Diet and Nutrition Start: 06-05-2022 Influenza vaccination [facility] Start: 05-20-2022 Creatinine measurement [facility] [email or web address] Start: 05-20-2022 Potassium [Moles/volume] in Serum or Plasma Potassium [employer] Start: 05-20-2022 Potassium monitoring Potassium monitoring [employer] Start: 05-14-2022 Creatinine measurement [facility] Work [facility]: Start: 05-14-2022 Potassium monitoring Potassium monitoring [employer] Work Phone: Start: 05-05-2022 Influenza vaccination Flu vaccine (#1) [facility] Start: 02-05-2022 End: 02-05-2022 Patient encounter procedure 02/05/2022 Appointment Physical Therapy Christel Donohue, PT [facility] Start: 02-03-2022 End: 02-03-2022 Patient encounter procedure [facility] Start: 01-30-2022 End: 01-30-2022 Patient encounter procedure [facility] Start: 01-29-2022 End: 01-29-2022 Patient encounter procedure 01/29/2022 Appointment Physical Therapy Beverly Rangel [employer] [facility] Start: 01-27-2022 End: 01-27-2022 Patient encounter procedure 01/27/2022 Appointment Physical Therapy Christel Donohue, PT [facility] Start: 01-24-2022 End: 01-24-2022 Patient encounter procedure 01/24/2022 Appointment Physical Therapy Vanessa Garcia, PT [facility] Start: 01-22-2022 End: 01-22-2022 Patient encounter procedure 01/22/2022 Appointment Physical Therapy Beverly Rangel, [employer] [facility] Start: 01-17-2022 End: 01-17-2022 Patient encounter procedure 01/17/2022 Appointment Physical Therapy Beverly Rangel [employer] [facility] Start: 01-10-2022 End: 01-10-2022 Patient encounter procedure 01/10/2022 Appointment Physical Therapy Christel Donohue PT [facility] Start: 01-08-2022 End: 01-08-2022 Patient encounter procedure 01/08/2022 Appointment Physical Therapy Beverly Rangel [employer] [facility] Start: 01-02-2022 End: 01-02-2022 Patient encounter procedure 01/02/2022 Appointment Occupational Therapy Judi Marie OTA [address] [place] [address] [facility] Start: 12-31-2021 Diabetes screen Diabetes screen [facility] [place], [place] Start: 12-31-2021 End: 12-31-2021 Patient encounter procedure [facility] Start: 12-30-2021 End: 12-30-2021 Patient encounter procedure 12/30/2021 Appointment Occupational Therapy Cheryl Herman OT [facility] Start: 12-27-2021 End: 12-27-2021 Patient encounter procedure 12/27/2021 Appointment Occupational Therapy Eve Gaspar OTA [facility] Start: 11-14-2021 End: 11-14-2021 Patient encounter procedure 11/14/2021 Office Visit Felipe Hampton MD [address] [place] [address] [phone] [facility] Start: 10-29-2021 Depression Monitoring Depression Monitoring [employer] Start: 09-16-2021 Creatinine measurement Creatinine monitoring [employer] Phone: Start: 09-16-2021 Potassium monitoring Potassium monitoring [employer] Phone: Start: 08-01-2021 End: 08-01-2021 Patient encounter procedure 08/01/2021 Office Visit Urology Lita Weeks MD [address] [place] [address], [address] [place] [address] [employer] [facility] Start: 06-05-2021 Influenza vaccination [employer] Start: 05-25-2021 Creatinine measurement Creatinine monitoring [facility] [place] Start: 05-25-2021 HbA1c (Bld) [Mass fraction] A1C test (Diabetic or Prediabetic) [facility] [place], [place] Start: 05-25-2021 Hemoglobin A1c measurement A1C test (Diabetic or Prediabetic) [employer] Phone: Start: 05-25-2021 Potassium monitoring Potassium monitoring [facility] [place], [place] Start: 11-13-2020 End: 11-13-2020 Office Visit 11/13/2020 Office Visit Felipe Hampton MD [address] [place] [address] [phone] [facility] Start: 11-02-2020 Potassium monitoring Potassium monitoring [facility] [place], [place] Start: 10-23-2020 End: 10-23-2020 Office Visit 10/23/2020 Office Visit Infectious Diseases Dav Hartman MD [address] [place], [place] [id number] [facility] Start: 09-24-2020 HbA1c (Bld) [Mass fraction] A1C test (Diabetic or Prediabetic) [place], [place] Start: 06-17-2020 Creatinine measurement Creatinine monitoring [place], [place] Start: 06-17-2020 Creatinine monitoring Creatinine monitoring [place], [place] Start: 06-17-2020 Potassium monitoring Potassium monitoring [place], [place] Start: 06-12-2020 End: 06-12-2020 Office Visit 06/12/2020 Office Visit Infectious Diseases Dav Hartman MD [address] [place] [address] [phone] [facility] Start: 06-05-2020 Influenza vaccination Flu vaccine (#1) [place], [place] Start: 03-20-2020 Cervical cancer screen Cervical cancer screen [place], [place] Start: 03-20-2020 Screening for malignant neoplasm of cervix [facility] Start: 11-01-2019 End: 11-01-2019 Office Visit 11/01/2019 Office Visit Infectious Diseases Dav Hartman MD [address] [place], [place] [id number] [facility] Start: 07-28-2019 End: 07-28-2019 Office Visit 07/28/2019 Office Visit Infectious Dav Beaver MD [address] [place], [place] [id number] [facility] [place]. Start: 06-27-2019 End: 06-27-2019 Nurse Only 06/27/2019 Nurse Only Family Medicine [facility] Start: 06-05-2019 Influenza vaccination Flu vaccine (#1) [place], [place] Start: 06-05-2019 Influenza vaccination given SEQUENTIAL INFLUENZA VACCINE (Season Ended) [facility] Start: 2019 Screening for malignant neoplasm of breast Mammogram [facility] Start: 06-05-2018 Influenza vaccination INFLUENZA VACCINE (#1) [facility] Work Phone: Start: 03-23-2018 End: 03-23-2018 Ambulatory [facility] Start: 2009 Screening for malignant neoplasm of cervix HPV (without or with Pap) [facility] Start: 2000 Screening for malignant neoplasm of cervix PAP SMEAR DISCUSSION [facility] Work Phone: Start: 1998 Third diphtheria, tetanus and acellular pertussis (DTaP) vaccination TDAP (ADULT) [facility] Work Phone: Start: 1997 Hepatitis C screening Hepatitis C Screening [facility] Start: [address] [facility] Work Phone: Start: 1995 COVID-19 Vaccine (1) COVID-19 Vaccine (1) [facility] Work Phone: Start: 1994 HIV screen HIV screen [place], [place] Start: 1994 HIV screening HIV screen [facility] Start: 1992 HIV screening HIV SCREENING DISCUSSION [facility] Work Phone: Start: 1991 COVID-19 Vaccine (1) COVID-19 Vaccine (1) [facility] Work Phone: Start: 1991 Depression Monitoring Depression Monitoring [facility] Start: 1991 Depression screening using PHQ-9 (Patient Health Questionnaire 9) score Depression Screening (PHQ-2/9) [facility] Start: 1989 Urine screening for protein Urine Microalbumin [facility] Start: 1985 Pneumococcal Vaccine: Ped or At-Risk (1 - PCV) Pneumococcal Vaccine: Ped or At-Risk (1 - PCV) [facility] Start: 1984 COVID-19 Vaccine (1) COVID-19 Vaccine (1) [employer] Start: 1982 History and physical examination, annual for health maintenance Wellness Visit [facility] Start: 1979 COVID-19 Vaccine (#1) COVID-19 Vaccine (#1) [facility] [employer] Start: 1979 Hepatitis B vaccine (1 of 3 - 3-dose series) Hepatitis B vaccine (1 of 3 - 3-dose series) [facility] End: 02-13-2021 COVID-19 COVID-19 Lab Routine Suspected COVID-19 virus infection 1 Occurrences starting 02/13/2021 until 02/13/2021 [employer] Phone: Comment on above: 1 Occurrences starting 02/13/2021 until 02/13/2021 COVID-19 COVID-19 Lab Rou luis Suspected COVID-19 virus infection 02/13/2021 3:06 PM EDT [employer] Phone: End: 08-08-2020 COVID-19 Ambulatory COVID-19 Ambulatory Lab Routine SOB (shortness of breath) 1 Occurrences starting 08/08/2020 until 08/08/2020 [facility] [employer] [place] Comment on above: 1 Occurrences starting 08/08/2020 until 08/08/2020 COVID-19 Ambulatory COVID-19 Amb ulatory Lab Routine SOB (shortness of breath) 08/08/2020 4:02 PM [facility] End: 05-20-2021 Creatinine [Mass/volume] in Urine Creatinine, Random Urine Lab Routine Once for 1 Occurrences starting 05/20/2021 until 05/20/2021 [employer] Phone: Comment on above: Once for 1 Occurrences starting 05/20/20 21 until 05/20/2021 Creatinine [Mass/vol ume] in Urine Creatinine, Random Urine Lab Routine 05/20/2021 7:57 PM EDT [employer] Phone: End: 04-13-2021 Culture, Urine Culture, Urine Microbiology Routine Acute cystitis with hematuria 1 Occurrences starting 04/13/2021 until 04/13/2021 [employer] Phone: Comment on above: 1 Occurrences starting 04/13/2021 until 04/13/2021 Culture, Urine [employer] Phone: End: 05-27-2021 Culture, Urine Culture, Urine Microbiology Routine Difficult or painful urination 1 Occurrences starting 05/27/2021 until 05/27/2021 [employer] Phone: Comment on above: 1 Occurrences starting 05/27/2021 until 05/27/2021 End: 06-11-2021 Culture, Urine Culture, Urine Microbiology Routine Acute cystitis with hematuria Recurrent UTI 1 Occurrences starting 06/11/2021 until 06/11/2021 [employer] Phone: Comment on above: 1 Occurrences starting 06/11/2021 until 06/11/2021 End: 07-11-2021 Culture, Urine Culture, Urine Microbiology Routine Frequent UTI Urinary urgency Urinary frequency 1 Occurrences starting 07/11/2021 until 07/11/2021 [employer] Phone: Comment on above: 1 Occurrences starting 07/11/2021 until 07/11/2021 End: 08-01-2021 Culture, Urine Culture, Urine Microbiology Routine Frequent UTI Urinary urgency Urinary frequency 1 Occurrences starting 08/01/2021 until 08/01/2021 [employer] Phone: Comment on above: 1 Occurrences starting 08/01/2021 until 08/01/2021 End: 04-28-2022 Culture, Urine Culture, Urine Microbiology Routine Acute cystitis with hematuria 1 Occurrences starting 04/28/2022 until 04/28/2022 [employer] Phone: Comment on above: 1 Occurrences starting 04/28/2022 until 04/28/2022 End: 02-05-2023 Culture, Urine [employer] Phone: Comment on above: 1 Occurrences starting 02/05/2023 until 02/05/2023 End: 04-12-2022 Hemoglobin A1c/Hemoglobin.total in Blood [employer] Phone: Comment on above: 1 Occurrences starting 04/12/2022 until 04/12/2022 End: 02-05-2023 Hemoglobin A1c/Hemoglobin.total in Blood [facility] [employer] Phone: Comment on above: Once for 1 Occurrences starting 02/06/20 until 02/05/2023 End: 08-29-2019 Home Sleep Study Home Sleep Study Sleep Center Routine One Time for 1 Occurrences starting 08/29/2019 until 08/29/2019 [facility] [place] Comment on above: One Time for 1 Occurrences starting 08/06 until 08/29/2019 End: 09-24-2019 Methylmalonic Acid, Serum Methylmalonic Acid, Serum Lab Routine Once for 1 Occurrences starting 09/24/2019 until 09/24/2019 [employer] Phone: Comment on above: Once for 1 Occurrences starting 09/24/20 until 09/24/2019 Methylmalonic Acid, Serum Methyl malonic Acid, Serum Lab Routine 09/24/2019 9:33 AM [employer] Phone: End: 09-24-2019 Nuclear Ab [Titer] in Serum by Immunofluorescence ALICJA Lab Routine Once for 1 Occurrences starting 09/24/2019 until 09/24/2019 [employer] Phone: Comment on above: Once for 1 Occurrences starting 09/24/20 until 09/24/2019 Nuclear Ab [Titer] i n Serum by Immunofluorescence [facility] Lab Routine 09/24/2019 9:33 AM [employer] Phone: End: 05-20-2021 Protein, urine, random Protein, urine, random Lab Routine Once for 1 Occurrences starting 05/20/2021 until 05/20/2021 [employer] Phone: Comment on above: Once for 1 Occurrences starting 05/20/20 until 05/20/2021 Protein, urine, random Protein, urine, random Lab Routine 05/20/2021 7:57 PM EDT [employer] Phone: End: 12-14-2019 Sedimentation Rate Sedimentation Rate Lab Routine MRSA (methicillin resistant Staphylococcus aureus) septicemia (HCC) 1 Occurrences starting 12/14/2019 until 12/14/2019 [employer] [place] Comment on above: 1 Occurrences starting 12/14/2019 until 12/14/2019 Sedimentation Rate Sedimentation Rate Lab Routine MRSA (methicillin resistant Staphylococcus aureus) septicemia (HCC) 12/14/2019 12:39 PM EDT [facility] End: 09-24-2019 Sjogrens syndrome-A extractable nuclear antibody Sjogrens syndrome-A extractable nuclear antibody Lab Routine Once for 1 Occurrences starting 09/24/2019 until 09/24/2019 [employer] Phone: Comment on above: Once for 1 Occurrences starting 09/24/20 until 09/24/2019 Sjogrens syndrome-A extractable nuclear antibody Sjogrens syndrome-A extractable nuclear antibody Lab Routine 09/24/2019 9:33 AM [employer] Phone: End: 09-24-2019 Sjogrens syndrome-B extractable nuclear antibody Sjogrens syndrome-B extractable nuclear antibody Lab Routine Once for 1 Occurrences starting 09/24/2019 until 09/24/2019 [employer] Phone: Comment on above: Once for 1 Occurrences starting 09/24/20 until 09/24/2019 Sjogrens syndrome-B extractable nuclear antibody Sjogrens syndrome-B extractable nuclear antibody Lab Routine 09/24/2019 9:33 AM [employer] Phone: End: 09-12-2019 Sleep Study with PAP Titration Sleep Study with PAP Titration Sleep Center Routine One Time for 1 Occurrences starting 09/12/2019 until 09/12/2019 [employer] Phone: Comment on above: One Time for 1 Occurrences starting 06/2019 until 09/12/2019 End: 09-24-2019 Vitamin B6 Vitamin B6 Lab Routine Once for 1 Occurrences starting 09/24/2019 until 09/24/2019 [employer] Phone: Comment on above: Once for 1 Occurrences starting 09/24/20 19 until 09/24/2019 Vitamin B6 Vitamin B6 Lab R outine 09/24/2019 9:33 AM [employer] Phone: Immunizations Immunization Date Immunization Notes Care Provider Yair dai 09-08-2014 tetanus toxoid, redu gaby diphtheria toxoid, and acellular pertussis vaccine, [facility] [place] [place] Payers Date Payer Category Payer Unknown 2016 Unknown [id number] 2016 Unknown xxxxxxxxxxxxxxx [id number] 2014 Medicaid [id number] 2014 Medicaid [employer] xxxxxxxxxxx 2014-Present xxxxxxxxxxx [id number] 1979 Unknown [id number] 2.16.840.1.090434.3.579.2.356 1979 Unknown [id number] 2.16.840.1.418902.3.579.2.356 1979 Unknown [id number] 2.16.840.1.677593.3.579.2.717 1979 Unknown [id number] 2.16.840.1.613898.3.579.2.717 1979 Unknown [id number] 2.16.840.1.419955.3.579.2.175 1979 Unknown [id number] 2.16.840.1.929589.3.579.2.903 1979 Unknown [id number] 2.16.840.1.798203.3.579.2.182 1979 Unknown [id number] 2.16.840.1.185313.3.579.2.185 1979 Unknown [id number] 2.16.840.1.375121.3.579.2.903 1979 Unknown [id number] 2.16.840.1.259314.3.579.2.593 1979 Unknown [id number] 2.16.840.1.237887.3.579.2.593 1979 Unknown [id number] 2.16.840.1.381987.3.579.2.593 1979 Unknown [id number] 2.16.840.1.152048.3.579.2.903 1979 Unknown [id number] 2.16.840.1.300672.3.579.2.903 1979 Unknown [id number] 2.16.840.1.735177.3.579.2.903 1979 Unknown [id number] 2.16.840.1.410789.3.579.2.174 1979 Unknown [id number] 2.16.840.1.568220.3.579.2.174 1979 Unknown [id number] 2.16.840.1.504876.3.579.2.174 1979 Unknown [id number] 2.16.840.1.607068.3.579.2.174 1979 Unknown [id number] 2.16.840.1.789773.3.579.2.174 1979 Unknown [id number] 2.16.840.1.075102.3.579.2.174 1979 Unknown [id number] 2.16.840.1.126551.3.579.2.1259 1979 Unknown [id number] 2.16.840.1.143454.3.579.2.1259 1959 Unknown [id number] [id number] Self-pay Self Pay [id number] Unknown [id number] Social History Date Type Detail Facility Start: 05-01-2015 End: 04-28-2022 Tobacco smoking status NHIS Never smoker [facility] Work Phone: Start: 1980 Sex Assigned At Not on file [facility] Work Phone: Start: 05-27-2019 End: 03-23-2023 Alcohol intake No [place], [place] Start: 12-13-2019 End: 05-26-2023 Alcohol intake Current non-drinker of alcohol (finding) [facility], [place] Start: 12-09-2019 End: 05-13-2021 History SDOH Financial 4 [facility], [place] Start: 12-09-2019 End: 05-20-2022 History SDOH Food Worry 1 [facility] [place] , [place] Start: 12-09-2019 History SDOH Transport Med 2 [facility] [place] Start: 05-11-2020 End: 04-28-2022 Tobacco use and exposure Never used [employer] [place], [place] Start: 10-30-2021 End: 03-02-2023 Exposure to SARS-CoV-2 (event) Not sure [facility] [place], [place] Start: 1980 Sex Assigned At Female [facility] Start: 05-20-2022 History SDOH Financial 3 [employer] Work Phone: Start: 01-06-2023 End: 03-23-2023 History of Social function [facility] How hard is it for y ou to pay for the very basics like food, housing, medical care, and heating Not very hard [facility] Patient Health Questionnaire 9 item (PHQ-9) total score [Reported] 0 Appear (I/We) worried wheth er (my/our) food would run out before (I/we) got money to buy more. Never true [facility] [employer] At any time in the p ast 12 months, were you homeless or living in [place] [facility] [including now]? No [facility] Start: 10-09-2020 Gender identity Identifies as female gender (finding) [facility] Start: 10-09-2020 Sexual orientation Heterosexual (finding) [facility] Clinical Notes 12-23-2021 to 03-03-2023 MASSIMO Shook DPM - 03/03/2023 3:[address], LD - 07/09/2022 10:00 AM Ajit Donohue, PT - 02/05/2022 9:45 AM Ajit Donohue, PT - 02/05/2022 9:45 AM EDT Note Date & Type Note Facility 03-03-2023 History of Present illness Narrative Images from the original note were not included. NEW Patient Visit MASSIMO Shook DPM Patient Name: Celina Gaspar. . Date of : 1980, 42 y.o.. Gender: female. Subjective: Patient is a pleasant 42-year-old female who presents to clinic today with complaints of left foot pain. 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 She follows with an outside provider in [place] and was immobilized for an extended period of time. When patient started ambulating in the boot she was found to have increased deformity throughout the midfoot with almost essentially complete collapse. She has not had ulceration of the foot nor is it ever been open. Patient is here for a second opinion. Patient is a nondiabetic. She has been neuropathic for over 10 years and does not know why. She does have have multiple back issues with pinched nerves. Patient denies any current fever, chills, nausea vomiting or chest pain or shortness of breath. Patient with no acute complaints this time. Past Medical History: Diagnosis Date GERD (gastroesophageal reflux disease) Gout Hyperlipidemia Past Surgical History: Procedure Laterality Date CHOLECYSTECTOMY 2005 COLONOSCOPY February 2014 TONSILLECTOMY 1985 Social History Socioeconomic History Marital status: Tobacco Use Smoking status: Never Smokeless tobacco: Never Substance and Sexual Activity Alcohol use: No Drug use: Yes Types: Marijuana Physical Examination: BP 139/87 (BP Location: Left arm, Patient Position: Sitting, BP Cuff Size: Adult) Pulse 94 Temp 98.5 F (36.9 C) (Infrared) General Appearance: Alert, cooperative, no distress, appears stated age. Podiatric Exam Vascular: DP and PT pulses are easily palpable, 2/4. Capillary refill time is brisk to distal digits, less than 3 seconds. Skin temperature is warm to warm from proximal tibial tuberosity to distal digits. No dependent rubor. Neurological: Epicritic and protopathic sensation grossly diminished to bilateral lower extremities. Dermatologic: Skin is overall supple. No hyperkeratotic lesions or hyperpigmented lesions of note. No breakdown noted to the plantar aspect of the foot. Musculoskeletal: Right foot and ankle overall rectus alignment. Left ankle is overall rectus with foot in a somewhat rocker-bottom appearance of the foot. Ankle joint range of motion limited with knee extended and slightly increased with knee flexed. Subtalar joint and midtarsal joint on the right overall within normal limits. Overall somewhat limited subtalar joint on the left and absent midtarsal joint range of motion. Midfoot is overall fairly stable. Pain on palpation diffusely to the dorsal lateral aspect of the left foot overlying the lesser TMT's. Mild discomfort to the plantar aspect of the foot. Diagnoses: 1. Charcot arthropathy of midfoot [facility] Bilateral 2. Gastrocnemius equinus, unspecified laterality [facility] Bilateral 3. Foot pain, left [facility] Bilateral Imagin views of the left foot reviewed today AP [place] and lateral. 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 Collapse at the naviculocuneiform joint. Decrease in calcaneal inclination angle and extremely negative Meary's angle. Patient does have some plantar prominence noted that appears to be the cuboid. Dorsal fragmentation present within the space. Also there is a foreign body that appears to be in the second intermetatarsal space close to the third metatarsal that lies deep within the central aspect of the foot. Assessment/Plan: Patient was seen and evaluated. Discussed all clinical and radiographic findings. Extensive discussion today with patient with regards to status of the foot. Educated patient on etiology and pathophysiology associated with Charcot neuroarthropathy. Discussed various conservative and surgical interventions with this patient. Discussed with patient the high risk associated with any type of Charcot reconstruction. Patient currently has a plantigrade foot that is not ulcerated and I believe this to be continuing to remodel. Patient does have mild pain on occasion with ambulation. Rx for 3 pairs of accommodative inserts. Patient is a nondiabetic but would benefit from multiple pairs of accommodative orthotics secondary to the severe deformity of her foot. This would be integral in preventing any type of ulceration or amputation. Discussed with patient that any type of formal Charcot reconstruction should be held to the last resort as there is a 50-50 chance for worsening of pain and potential infection and amputation. Being that patient is a nondiabetic and hemoglobin A1c is within normal limits would likely put this patient in a more favorable category should she need any type of formal reconstruction. Should patient have any issues or need intervention she can call to make an appointment. Patient to follow-up in 6 months or as needed at this point. This note was partially created using voice recognition software and is inherently subject to errors including those of syntax and sound-alike substitutions which may escape proofreading. In such instances, original meaning may be extrapolated by contextual derivation. MASSIMO Shook DPM Podiatric Foot & Ankle Surgery documented in this encounter [facility] 01-29-2023 Note PROCEDURE: XR ANKLE LT MIN 3 V, XR FOOT LT MIN 3 VIEWS HISTORY: Pain ; left foot and ankle pain for one month; no known injury COMPARISON: XR ankle left 01/06/2023 FINDINGS: BONES:Advanced degenerative changes the midfoot and complete collapse of plantar arch. No significant degenerative changes of the metatarsophalangeal or the interphalangeal joints. Calcaneal plantar spur. SOFT TISSUES:Moderate soft tissue swelling surrounding the ankle and proximal foot. EFFUSION:None visible. OTHER: Negative. IMPRESSION: 1. Stable advanced degenerative changes the midfoot consistent with Charcot joint. 2. No appreciable acute abnormality. Electronically authenticated by: PIPER MERCEDES Date: 2023-01-29 07:05 [facility] 01-29-2023 Note PROCEDURE: XR ANKLE LT MIN 3 V, XR FOOT LT MIN 3 VIEWS HISTORY: Pain ; left foot and ankle pain for one month; no known injury COMPARISON: XR ankle left 01/06/2023 FINDINGS: BONES:Advanced degenerative changes the midfoot and complete collapse of plantar arch. No significant degenerative changes of the metatarsophalangeal or the interphalangeal joints. Calcaneal plantar spur. SOFT TISSUES:Moderate soft tissue swelling surrounding the ankle and proximal foot. EFFUSION:None visible. OTHER: Negative. IMPRESSION: 1. Stable advanced degenerative changes the midfoot consistent with Charcot joint. 2. No appreciable acute abnormality. Electronically authenticated by: PIPER MERCEDES Date: 2023-01-29 07:05 [facility] 07-09-2022 History of Present illness Narrative MNT provided for Prediabetes Food and nutrition-related knowledge deficit related to Lack of previous MNT/currently undergoing MNT as evidenced by Conditions associated with a diagnosis or treatment: prediabetes, Lab Results Component Value Date/Time LABA1C 6.0 04/12/2022 02:09 PM Client data Ht: 5'2 Wt: 211# 6.4 oz BMI: 38.67 (obesity class II) Weight changes: 9# weight loss x 2 months CBW: 95.9 kg BMR: 1573 calories Est. total calorie needs: ~0127-3319 Lab Results Component Value Date/Time TRIG 460 04/12/2022 02:09 PM HDL 30 04/12/2022 02:09 PM LDLCALC 102 08/07/2016 12:00 AM LDLDIRECT 84 04/12/2022 02:09 PM Client overall goal for weight is for weight loss trend towards a healthier diet. Current eating pattern is with errors in meal timing, skips breakfast at times, did not have breakfast this morning. Celina reports she has been trying to not skip meals.. Use of whole grains, whole fruits and vegetables appear less than recommended quantities. Celina has been trying to incorporate more fruits and vegetables into her diet. A barrier for her is she hates to cook. There is an excess of carbohydrates (used to drink regular Pepsi, states she has been drinking it since she was a baby-family put it in her sippy cup, likes carbs per recall. She switched to natural peanut butter. States she tried the Keto diet. Activity is limited with boot and knee cart due to foot Fx Client presents for MNT today with herself. Celina is interested in a meal plan to help guide her. Food recall Breakfast: sweetened cereal or peanut butter toast or Keto pancakes Lunch: ham or turkey sandwich on wheat bread Supper: pork chop or chicken, homemade welsh fries, mashed, or baked potato with broccoli HS snack: strawberries, cantaloupe, or left over from supper such as baked potato Client was educated on carbohydrate counting with the following goals at meals and snacks: Breakfast: 45 grams Lunch: 45 grams Afternoon snack: 15 grams Supper: 45 grams Bedtime Snack: 15 grams Client received information on limiting fat in diet to lessen heart disease risk, with goals of: Total Fat: 48 grams Saturated Fat: 10 grams Trans Fat: 0 grams daily Discussed and provided literature on: Reading food labels, carbohydrate counting, importance of consistency of meal timing (eating meals every 4.5-5 hours), importance of carbohydrate consistency (carbohydrate recommendations as noted above), importance of physical activity with a minimum goal of 30 minutes 5 days per week, healthy snack options (fruit, vegetables, lite popcorn, wheat thins, etc.), plate method (half of 9 plate with non starchy vegetables such as broccoli or cauliflower, with protein item such as chicken and ,starch option such as a potato sharing a quarter of the plate each) importance of consuming protein and carbohydrate foods together (for meal and snack satiety), cooking methods (baking broiling, grilling), importance of eating meals slowly, and importance of not eating in front of a TV or computer were discussed with Celina. Celina asked numerous questions during appointment which were answered. She was engaged in conversation and attentive to discussions. Celina is interested in making diet and lifestyle modifications. Reports she is drinking more water. Celina received the following diet instruction materials: Choose Your Foods, Diabetes Food Label, Between Meal Snack Ideas, Choose MyPlate, 1200 calorie meal plan for 7 days, and a refrigerator paper. Client goals: Eat 3 well balanced meals with a variety of lean meats, fresh fruits, vegetables, whole grains and low fat dairy. Have meals at consistent times, with a consistent amount of carbohydrate. Read food labels and measure food portions. Include 150 minutes of PA weekly/21 minutes daily. Increase fruits and vegetables in daily diet. Expected compliance: good Client appears to be in a contemplative phase of change. Recommend follow up as needed. RD name and phone number provided. Thank you for the referral. Education session duration: 55 minutes. documented in this encounter [facility] [employer] Phone: 02-05-2022 History of Present illness Narrative [facility] Date: 02/05/2022 Patient Name: Celina Gaspar : 1980 Pt No Showed Appt- Follow up call, left message on voicemail that patient discharged, but to call if has questions or concerns. Christel Donohue, PT Date: 02/05/2022 documented in this encounter [employer] Phone: 02-05-2022 Hospital course Narrative Images from the original note were not included. [facility] Discharge Summary Patient: Celina Gaspar : 1980 Referring Practitioner: Liliane Sawyer APRN, CNP Referral Date : 12/19/21 Diagnosis: Lumbar radiculopathy Treatment Diagnosis: Back Pain Onset Date: 12/19/21 (Referral) PT Insurance Information: BCBS Total # of Visits Approved: 10 Per Physician Order Total # of Visits to Date: 8 No Show / Canceled Appointment: 3 Date Treatment Initiated: 12/31/21 Date of Last Treatment: 01/29/22 Frequency/Duration 2 times per week 5 weeks Treatment Received Patient Education/HEP, Back Education, Therapeutic Exercise, Manual Therapy: Myofacial Release/Cupping and Manual Therapy: Mobilization/Manipulation Assessment Patient rates pain in back at 5/10 with c/o neuropathy in foot causing minor limp. Trunk ROM left rotation 25% limited; R rotation WFL. Strength B hip abd 4+/5. Patient educated on HEP. Reason for Discharge Completion of Prescribed visits and Optimal Function Achieved Comments: Thank you for this referral Christel Donohue, PT Date: 02/05/2022 documented in this encounter [employer] Phone: 02-03-2022 History of Present illness Narrative [facility] Date: 02/03/2022 Patient Name: Celina Gaspar : 1980 Pt Cancelled Appt due to no reason for cancel. Jerica Melgar Date: 02/03/2022 documented in this encounter [employer] Phone: 01-29-2022 History of Present illness Narrative Images from the original note were not included. [facility] Daily Note Date: 01/29/2022 Patient Name: Celina Gaspar : 1980 (41 y.o.) Referring Practitioner: Liliane Sawyer APRN, CNP Referral Date : 12/19/21 Diagnosis: Lumbar radiculopathy Treatment Diagnosis: Back Pain Onset Date: 12/19/21 (Referral) PT Insurance Information: BCBS Total # of Visits Approved: 10 Per Physician Order Total # of Visits to Date: 8 No Show: 0 Canceled Appointment: 0 Plan of Care/Certification Expiration Date: 02/07/22 Pre-Treatment Pain: 5/10 Assessment Assessment: Patient rates pain in back at 5/10 with c/o neuropathy in foot causing minor limp. Pt reports on good day pain 4/10 and has c/o constant stiffness and soreness. Pt completed exercises per log, added planks of side of plinth to promote core strength to support back. Ended session with manual therapy for muscle tightness. Pt with 2 more visits scheduled then plan to discharge to home program. Chart Reviewed: Yes Plan Exercises/Modalities/Manual: See DocFlow Sheet Education: Goals (Total # of Visits to Date: 8) Short Term Goals - Time Frame for Short term goals: 6 Short Term Goals Time Frame for Short term goals: 6 Short term goal 1: Patient to be independent with HEP=Met Short term goal 2: Decrease pain low back 4/10 at worst x3 days-Not Met Short term goal 3: Increase strength L hip abd 4+/5 for good pelvic stability-Met Short term goal 4: Increase trunk ROM B rotation WFL-Not Met Dietitian Teaching Goals - Time Frame for termite inspector goals : 10 Penitentiary Goals Time Frame for correction goals : 10 termite inspector goal 1: Decrease pain low back 2/10 at worst x3 days for completing normal activities correction goal 2: Patient to report 50% decrease in radicular symptoms L LE Post Treatment Pain: 10 Time In: 0859 Time Out: 0947 Timed Code Treatment Minutes: 48 Minutes Total Treatment Time: 48 Minutes Beverly Rangel, JENNIFER Date: 01/29/2022 documented in this encounter [facility] [employer] Phone: 01-27-2022 History of Present illness Narrative Images from the original note were not included. [facility] Daily Note Date: 01/27/2022 Patient Name: Celina Gaspar : 1980 (41 y.o.) Referring Practitioner: Liliane Sawyer APRN, CLINICAL MICROBIOLOGIST Referral Date : 12/19/21 Diagnosis: Lumbar radiculopathy Treatment Diagnosis: Back Pain Onset Date: 12/19/21 (Referral) PT Insurance Information: BCBS Total # of Visits Approved: 10 Per Physician Order Total # of Visits to Date: 7 No Show: 0 Canceled Appointment: 0 Plan of Care/Certification Expiration Date: 02/07/22 Pre-Treatment Pain: 3/10 Assessment Assessment: Pain 3/10 low back today, but has been sedantary today. Pain fluctuates 3-6/10. Completed therex and manual therapy per Doc Flow. Trunk ROM left rotation 25% limited; R rotation WFL. Strength B hip abd 4+/5. Gait WFL. Continue per plan for remaining 3 visits. Chart Reviewed: Yes Plan Plan: Continue with current plan Exercises/Modalities/Manual: See DocFlow Sheet Education: Goals (Total # of Visits to Date: 7) Short Term Goals - Time Frame for Short term goals: 6 Short Term Goals Time Frame for Short term goals: 6 Short term goal 1: Patient to be independent with HEP=Met Short term goal 2: Decrease pain low back 4/10 at worst x3 days-Not Met Short term goal 3: Increase strength L hip abd 4+/5 for good pelvic stability-Met Short term goal 4: Increase trunk ROM B rotation WFL-Not Met Penitentiary Goals - Time Frame for correction goals : 10 Penitentiary Goals Time Frame for correction goals : 10 termite inspector goal 1: Decrease pain low back 2/10 at worst x3 days for completing normal activities correction goal 2: Patient to report 50% decrease in radicular symptoms L LE Post Treatment Pain: 4/10 Time In: 15:50 Time Out : 16:19 Timed Code Treatment Minutes: 34 Minutes Total Treatment Time: 34 Minutes Christel Donohue PT Date: 01/27/2022 documented in this encounter [employer] Phone: 01-24-2022 History of Present illness Narrative Images from the original note were not included. [facility] Daily Note Date: 01/24/2022 Patient Name: Celina Gaspar : 1980 (41 y.o.) Referring Practitioner: Liliane Sawyer APRN CLINICAL MICROBIOLOGIST Referral Date : 12/19/21 Diagnosis: Lumbar radiculopathy Treatment Diagnosis: Back Pain Onset Date: 12/19/21 (Referral) PT Insurance Information: BCBS Total # of Visits Approved: 10 Per Physician Order Total # of Visits to Date: 6 No Show: 0 Canceled Appointment: 0 Plan of Care/Certification Expiration Date: 02/07/22 Pre-Treatment Pain: 3-4/10 Assessment Assessment: Pt arrives this AM with 3-4/10 pain. Pt states she does not feel a stretch in her lumbar with Qped Ex's, pt did not mention this until post ther ex. Plan to modify stretches to try and encorporate lumbar stretch. Pt with decreased thoracic mobility throughtout. Pt reports at this time no sig change noted with regard to pain. Chart Reviewed: Yes Plan Plan: Continue with current plan Exercises/Modalities/Manual: See DocFlow Sheet Education: Pt educated to use heating pad post session to reduce discomfort and muscle soreness. Goals (Total # of Visits to Date: 6) Short Term Goals - Time Frame for Short term goals: 6 Short Term Goals Time Frame for Short term goals: 6 Short term goal 1: Patient to be independent with HEP=Met Short term goal 2: Decrease pain low back 4/10 at worst x3 days Short term goal 3: Increase strength L hip abd 4+/5 for good pelvic stability Short term goal 4: Increase trunk ROM B rotation WFL Dietitian Teaching Goals - Time Frame for correction goals : 10 Dietitian Teaching Goals Time Frame for termite inspector goals : 10 correction goal 1: Decrease pain low back 2/10 at worst x3 days for completing normal activities correction goal 2: Patient to report 50% decrease in radicular symptoms L LE Post Treatment Pain: 5/10 Time In: 0952 Time Out: 1030 Timed Code Treatment Minutes: 38 Minutes Total Treatment Time: 38 Minutes Vanessa Garcia, PT Date: 01/24/2022 documented in this encounter [employer] Phone: 01-22-2022 History of Present illness Narrative [facility] Date: 01/22/2022 Patient Name: Celina Gaspar : 1980 Patient did not show up for her appointment. Message left on answering machine with a reminder of her next appointment on Thursday. Beverly Rangel, MATRIX DRIER TENDER Date: 01/22/2022 documented in this encounter [employer] Phone: 01-17-2022 History of Present illness Narrative Images from the original note were not included. [facility] Daily Note Date: 01/17/2022 Patient Name: Celina Gaspar : 1980 (41 y.o.) Referring Practitioner: Liliane Sawyer APRN, CNP Referral Date : 12/19/21 Diagnosis: Lumbar radiculopathy Treatment Diagnosis: Back Pain Onset Date: 12/19/21 (Referral) PT Insurance Information: BCBS Total # of Visits Approved: 10 Per Physician Order Total # of Visits to Date: 5 Plan of Care/Certification Expiration Date: 02/07/22 Pre-Treatment Pain: 5/10 Assessment Assessment: Patient arrives with pain 5/10. Pt on lifting restriction d/t carpal tunnel surgery so did not initiate crate lifts today. Pt reports she continues to have increased pain when completing chores and or long terp sitting. Pt reports she can stand for 30 minutes on a good day. Chart Reviewed: Yes Plan Plan: Continue with current plan Exercises/Modalities/Manual: See DocFlow Sheet Education: Goals (Total # of Visits to Date: 5) Short Term Goals - Time Frame for Short term goals: 6 Short term goal 1: Patient to be independent with HEP=Met Short term goal 2: Decrease pain low back 4/10 at worst x3 days Short term goal 3: Increase strength L hip abd 4+/5 for good pelvic stability Short term goal 4: Increase trunk ROM B rotation WFL Penitentiary Goals - Time Frame for termite inspector goals : 10 termite inspector goal 1: Decrease pain low back 2/10 at worst x3 days for completing normal activities correction goal 2: Patient to report 50% decrease in radicular symptoms L LE Post Treatment Pain: 5/10 Time In: 1037 Time Out: 1107 Timed Code Treatment Minutes: 30 Minutes Total Treatment Time: 30 Minutes Beverly Rangel PTA Date: 01/17/2022 documented in this encounter [employer] Phone: 01-13-2022 History of Present illness Narrative [facility] Date: 01/13/2022 Patient Name: Celina Gaspar : 1980 Pt Cancelled Appt due to no reason given. PRESTON Metzger/Matthew Date: 01/13/2022 documented in this encounter [employer] Phone: 01-03-2022 History of Present illness Narrative Images from the original note were not included. [facility] Daily Note Date: 01/03/2022 Patient Name: Celina Gaspar : 1980 (41 y.o.) Referring Practitioner: Liliane Sawyer APRN, CNP Referral Date : 12/19/21 Diagnosis: Lumbar radiculopathy Treatment Diagnosis: Back Pain Onset Date: 12/19/21 (Referral) PT Insurance Information: BCBS Total # of Visits Approved: 10 Per Physician Order Total # of Visits to Date: 2 Plan of Care/Certification Expiration Date: 02/07/22 Pre-Treatment Pain: 7/10 Assessment Assessment: Patient arrived reporting pain 7/10 with c/o icreased soreness post last session. Pt repoorts completing HEP with good understanding and demonstrated in clinic with proper form. Pt educated on proper form when transitioning from supine to sit to stand. Plan to continue with current POC. Chart Reviewed: Yes Plan Plan: Continue with current plan Exercises/Modalities/Manual: See DocFlow Sheet Education: Goals (Total # of Visits to Date: 2) Short Term Goals - Time Frame for Short term goals: 6 Short term goal 1: Patient to be independent with HEP Short term goal 2: Decrease pain low back 4/10 at worst x3 days Short term goal 3: Increase strength L hip abd 4+/5 for good pelvic stability Short term goal 4: Increase trunk ROM B rotation WFL Dietitian Teaching Goals - Time Frame for termite inspector goals : 10 termite inspector goal 1: Decrease pain low back 2/10 at worst x3 days for completing normal activities correction goal 2: Patient to report 50% decrease in radicular symptoms L LE Post Treatment Pain: /10 Time In: 0948 Time Out: 1028 Timed Code Treatment Minutes: 40 Minutes Total Treatment Time: 40 Minutes Beverly Rangel, MATRIX DRIER TENDER Date: 01/03/2022 documented in this encounter [facility] [employer] Phone: 12-31-2021 History of Present illness Narrative Images from the original note were not included. [facility] Daily Note Date: 12/31/2021 Patient: Celina Gaspar : 1980 Referring Practitioner: Keenan Lozano MD Diagnosis: Rt Carpal Tunnel Release Onset Date: 12/23/21 Total # of Visits Approved: 12 Per Physician Order Total # of Visits to Date: 4 No Show: 0 Canceled Appointment: 0 Pre-Treament Pain: 0 Subjective: Pt states she feels her hand is back to normal function galindo Assessment Assessment: Last OT session. Tolerates session well. Encouraged to continue to complete HEP handouts and scar massage to incision site, pt v/u. D/C from OT at this time. Prognosis: Fair Post Treatment Pain: 0 Goals Short Term Goals Time Frame for Short term goals: STG=LTG Penitentiary Goals Time Frame for correction goals : 12 visits (01/24/2022) correction goal 1: pt to be indepenent in HEP-MET correction goal 2: Pt to demonstrate R wrist flexion to 65 degrees or more in order to engage in daily tasks-MET correction goal 3: Pt to demonstrate R wrist extension to 60 degrees or more in order to engage in daily tasks-MET correction goal 4: Pt to be educated on carpal tunnel do's & dont's in order to prevent further repetitive injury to wrist-MET Timed Code Treatment Minutes: 30 Minutes Time In: 915 Time Out: 945 Timed Coded Minutes: 30 Total Treatment Time: 30 THERESA Houser, OTR/L Date: 12/31/2021 documented in this encounter [employer] Phone: 12-31-2021 Hospital course Narrative Images from the original note were not included. [facility] Discharge Summary Patient: Celina Gaspar : 1980 Referring Practitioner: Keenan Lozano MD Diagnosis: Rt Carpal Tunnel Release Date Treatment Initiated: 12/23/2021 Date of Last Treatment: 12/31/2021 Frequency: 2-3 times/wk Duration: 12 visits Onset Date: 12/23/21 Total # of Visits Approved: 12 Per Physician Order Current Treatment: [x] HP/CP [] Electrical Stimulation [x] Strengthening [x] Active/Passive ROM [] Muscle Re-education [x] Fine Motor Coordination [] Ultrasound [] Splinting [] Developmental Therapy [] Sensory Integration [x] Patient Education/HEP [] Visual Perception Retraining [] ADL Training [] Cognitive Retraining [] Fluidotherapy [x] Paraffin [x] Therapeutic Exercise [x] Therapeutic Activity [] Other: Objective RUE AROM (degrees) R Wrist Flexion 0-80: 0-65 R Wrist Extension 0-70: 0-60 Assessment Comment: Pt presented with minimal deficits at evaluation. Pt's only deficit was decreased R wrist ROM when compared to L wrist. Pt's ROM improved after heat, stretching & STM. Currently, pt has met all OT goals and demonstrates no further deficits. Plan to D/C OT at this time. Pt has been provided w/ HEP for continued pinch/sash finisher strengthening & stretching. Therapist provided pt with handout on Carpal Tunnel Dos & Dont's to avoid re-injury. Prognosis: Fair Goals Short Term Goals Time Frame for Short term goals: STG=LTG Dietitian Teaching Goals Time Frame for correction goals : 12 visits (01/24/2022) correction goal 1: pt to be indepenent in HEP-MET correction goal 2: Pt to demonstrate R wrist flexion to 65 degrees or more in order to engage in daily tasks-MET correction goal 3: Pt to demonstrate R wrist extension to 60 degrees or more in order to engage in daily tasks-MET termite inspector goal 4: Pt to be educated on carpal tunnel do's & dont's in order to prevent further repetitive injury to wrist-MET Reason for Discharge [] Poor Follow Through [] Completion of Prescribed Sessions [x] Optimal Function Achieved [] Patient Discharged Self [x] Goals Achieved Comments: Thank you for this referral THERESA Houser, OTR/L Date: 12/31/2021 [facility]: 12-31-[facility]21 History of Present illness Narrative Images from the original note were not included. [facility] Evaluation Date: 12/31/2021 Patient: Celina Gaspar : 1980 Referring Practitioner: Liliane Sawyer APRN, CNP Referral Date : 12/19/21 Diagnosis: Lumbar radiculopathy Treatment Diagnosis: Back Pain Onset Date: 12/19/21 (Referral) PT Insurance Information: BCBS Total # of Visits Approved: 10 Per Physician Order Total # of Visits to Date: 1 Subjective Additional Pertinent Hx: Patient c/o low back pain for at least 5 years. Patient had Pt in past, nerve block that worked fro about 9 months. Pain radiates down left leg intermittent. Pain 7/10 low back.Unemployed, applying for disability. Hx- bilateral carpal tunnel surgery and therapy on wrist, neuropathy in both hands and feet, tonsils removed, MRSA (hospitalized 2 weeks), had surgery upper thoracic to remove scar tissue. Patient c/o decreased balance and several falls. Pain Screening Patient Currently in Pain: Yes Pain Assessment Pain Assessment: 0-10 Pain Level: 7 Pain Location: Back,Leg,Neck Social/Functional History Lives With: Spouse Occupation: Unemployed Objective Spine Lumbar: Limited 25% all planes Joint Mobility Spine: tightness in muscles across low back, decrease mobility in mid thoracic spine Strength RLE Strength RLE: WFL AROM RLE (degrees) RLE AROM: WFL Strength LLE Strength LLE: Exception L Hip Flexion: 4-/5 L Hip ADduction: 4-/5 L Knee Flexion: 5/5 L Knee Extension: 5/5 L Ankle Dorsiflexion: 5/5 AROM LLE (degrees) LLE AROM : WFL AROM RLE (degrees) RLE AROM: WFL AROM LLE (degrees) LLE AROM : WFL PROM LLE (degrees) LLE PROM: WFL PROM RLE (degrees) RLE PROM: WFL Additional Measures Special Tests: SLR- positive on L LE Ambulation 1 Quality of Gait: WFL Assessment Body structures, Functions, Activity limitations: Decreased functional mobility ,Decreased ROM,Decreased strength,Increased pain,Decreased posture Assessment: Patient presents with chronic back pain, radiculopathy L LE. Completed manual therapy and therex per Doc Flow. Educated patient on and issued HEP handout. Plan for therex, HEP, back ed, manual therapy. Prognosis: Good Decision Making: Medium Complexity History: as above Clinical Presentation: Evolving The Following Comorbities will impact the patient s progression and Plan of Care: Obesity, Previous Orthopedic Injury/Surgery and Neuropathy Education: On POC and HEP handout Goals Short term goals Time Frame for Short term goals: 6 Short term goal 1: Patient to be independent with HEP Short term goal 2: Decrease pain low back 4/10 at worst x3 days Short term goal 3: Increase strength L hip abd 4+/5 for good pelvic stability Short term goal 4: Increase trunk ROM B rotation WFL correction goals Time Frame for correction goals : 10 correction goal 1: Decrease pain low back 2/10 at worst x3 days for completing normal activities correction goal 2: Patient to report 50% decrease in radicular symptoms L LE Patient's Goal: Decrease back pain to complete normal activities Timed Code Treatment Minutes: 15 Minutes Total Treatment Time: 45 Time In: 8:30 Time Out: 9:15 Christel Donohue PT Date: 12/31/2021 documented in this encounter [employer] Phone: 12-30-2021 History of Present illness Narrative Images from the original note were not included. [facility] Outpatient Occupational Therapy Daily Note Date: 12/30/2021 Patient: Celina Gaspar : 1980 Referring Practitioner: Keenan Lozano MD Diagnosis: Rt Carpal Tunnel Release Onset Date: 12/23/21 Total # of Visits Approved: 12 Per Physician Order Total # of Visits to Date: 3 No Show: 0 Canceled Appointment: 0 Pre-Treament Pain: 0 Subjective: Pt c/o achy feeling at incision site Objective RUE AROM (degrees) R Wrist Flexion 0-80: 0-65 R Wrist Extension 0-70: 0-60 Assessment Comment: Continued w/ heat/scar massage & P/AROM. Reassessed pt's wrist ROM this date. Pt demo's improvement with both flexion & extension as compared to evaluation date. Currently, pt has met all OT goals and demonstrates no further deficits. Plan to see pt for 1 additional session then D/C OT. Pt & therapist agreeable. Prognosis: Fair Post Treatment Pain: 0 Goals Short Term Goals Time Frame for Short term goals: STG=LTG Dietitian Teaching Goals Time Frame for termite inspector goals : 12 visits (01/24/2022) termite inspector goal 1: pt to be indepenent in HEP-MET termite inspector goal 2: Pt to demonstrate R wrist flexion to 65 degrees or more in order to engage in daily tasks-MET correction goal 3: Pt to demonstrate R wrist extension to 60 degrees or more in order to engage in daily tasks-MET correction goal 4: Pt to be educated on carpal tunnel do's & dont's in order to prevent further repetitive injury to wrist-MET Time In: 835 Time Out: 915 Timed Coded Minutes: 40 Total Treatment Time: 40 THERESA Houser, OTR/L Date: 12/30/2021 documented in this encounter [employer] Phone: 12-23-2021 History of Present illness Narrative Images from the original note were not included. [facility] Outpatient Occupational Therapy Evaluation Date: 12/23/2021 Patient: Celina Gaspar : 1980 Referring Practitioner: Keenan Lozano MD Diagnosis: Rt Carpal Tunnel Release Additional Pertinent Hx: Pt had Rt Carpal Tunnel Release on 11/29/2021- this was pt's revision surgery. The first surgery was approx 4-5 years ago and went well but over time the symptoms came back and she had another surgery 11/29/2021. - Pt's incision became infected w/ MRSA this time around and still has an open area on the incision site so pt is keeping it covered. Pt still wearing splint at night. Treatment Diagnosis: Lt CTR Onset Date: 12/23/21 Total # of Visits Approved: 12 Per Physician Order Total # of Visits to Date: 1 Subjective Subjective: Pt states an overall feeling of stiffness/tightness in R hand and states that now she is noticing the buring & tingling she had post surgery has returned. Hand Dominance: Right Comments: Pt has follow up appt w/ surgeon within the next month- Around the middle of January Objective Fine Motor Skills Left 9 Hole Peg Test Time (secs): 27 Right 9 Hole Peg Test Time (secs): 24 LUE AROM (degrees) L Forearm Pron 0-90: 0-85 L Forearm Supination 0-90: 0-90 L Wrist Flexion 0-80: 0-65 L Wrist Extension 0-70: 0-60 L Wrist Radial Deviation 0-20: 0-25 L Wrist Ulnar Deviation 0-45: 0-30 Left Hand AROM (degrees) Left Hand General AROM: Pt can make full fist, touch all digits to DPC & complete thumb opposition to each digit RUE AROM (degrees) R Forearm Pron 0-90: 0-85 R Forearm Supination 0-90: 0-75 R Wrist Flexion 0-80: 0-60 R Wrist Extension 0-70: 0-55 R Wrist Radial Deviation 0-20: 0-25 R Wrist Ulnar Deviation 0-45: 0-30 Right Hand AROM (degrees) Right Hand General AROM: Pt can make full fist, touch all digits to DPC & complete thumb opposition to each digit- Does state some tightness/stiffness when completing these mvmts Left Hand Strength - Health Data Administrator (lbs) Handle Setting 2: 54#, 50#, 53# (52.3# ave) Left Hand Strength - Pinch (lbs) Lateral: 13.5# Tip: 8# Palmar 3 point: 11# Right Hand Strength - Health Data Administrator (lbs) Handle Setting 2: 53#, 54#, 53# (53.3# ave) Right Hand Strength - Pinch (lbs) Lateral: 14# Tip: 9.5# Palmar 3 point: 12.5# Assessment Performance deficits / Impairments: Decreased ROM,Decreased high-level IADLs Assessment: OT evaluation completed. Pt demonstrates the above deficits regarding L wrist ROM. Overall, pt presents with very limited deficits s/p CTR surgery. No strength or dexerity deficits noted, pts only deficits w/ ROM involved wrist flexion & extension. Pt does c/o overall stiffness/tightness of L hand but also states she feels that in R hand as well- pt may have some sx of arthritis in the joints of the hand. Pt also states she feels burning/tingling sensations in both hands s/p CTR surgeries as pt has had R CTR surgery as well a few years ago. Pt feels sx are being to come back in SHAHEEN hands despite having a revision done on Lt hand a month ago. Pt would benefit from short outpatient OT intervention to address identified ROM goals. Prognosis: Fair Short term goals Time Frame for Short term goals: STG=LTG termite inspector goals Time Frame for termite inspector goals : 12 visits (01/24/2022) termite inspector goal 1: pt to be indepenent in HEP termite inspector goal 2: Pt to demonstrate R wrist flexion to 65 degrees or more in order to engage in daily tasks correction goal 3: Pt to demonstrate R wrist extension to 60 degrees or more in order to engage in daily tasks correction goal 4: Pt to be educated on carpal tunnel do's & dont's in order to prevent further repetitive injury to wrist Patient's Goal: pt wishes to return to prior function Time In: 830 Time Out: 924 Timed Coded Minutes: 0 Total Treatment Time: 54 THERESA Houser, OTR/L 12/23/2021 documented in this encounter [employer] Phone: Evaluation note Diagnosis Viral illness Unspecified viral infection, in conditions classified elsewhere and of unspecified site documented in this encounter [employer] Phone: evaluation note* Diagnosis Suspected COVID-19 virus infection documented in this encounter [employer] Phone: evalvzdwlh note* Diagnosis Acute cystitis with hematuria Acute cystitis documented in this encounter [employer] Phone: evaluation note* Diagnosis Difficult or painful urination Dysuria documented in this encounter [employer] Phone: evalnmxyvt note* Diagnosis Acute cystitis with hematuria Acute cystitis Recurrent UTI Urinary tract infection, site not specified documented in this encounter [employer] Phone: evaliabyzp note* Diagnosis Frequent UTI Urinary tract infection, site not specified Urinary urgency Urgency of urination Urinary frequency documented in this encounter [employer] Phone: evaluation note* Diagnosis Frequent UTI Urinary tract infection, site not specified Urinary urgency Urgency of urination Urinary frequency documented in this encounter [employer] Phone: evaldvpeuo note* Diagnosis MRSA (methicillin resistant Staphylococcus aureus) septicemia ([facility]) Methicillin resistant staphylococcus aureus septicemia documented in this encounter [facility] noteNo assessment information availableWyandot [facility] Hospital Work Phone: Evaluation note* Diagnosis Fatigue, unspecified type Encounter for screening for HIV Mixed hyperlipidemia Hyperglycemia Other abnormal glucose Chronic renal impairment, stage 3b (HCC) documented in this encounter [employer] Phone: evaluation note* Diagnosis Acute cystitis with hematuria Acute cystitis documented in this encounter [employer] Phone: evallcmrcv note* Diagnosis Neck mass Swelling, mass, or lump in head and neck documented in this encounter [employer] Phone: evaluation note* Diagnosis Pain of foot, unspecified laterality Closed nondisplaced fracture of second metatarsal bone of left foot, initial encounter Closed nondisplaced fracture of lateral cuneiform of left foot, initial encounter documented in this encounter [employer] Phone: evallfkgds note* Diagnosis Foreign body (FB) in soft tissue Residual foreign body in soft tissue documented in this encounter [employer] Phone: evaluation note* Diagnosis Pelvic pressure in female Other specified symptom associated with female genital organs documented in this encounter [employer] Phone: evaluation note* Diagnosis Charcot arthropathy of midfoot- Primary Gastrocnemius equinus, unspecified laterality Foot pain, left Pain in soft tissues of limb [facility] Diagnosis Mixed hyperlipidemia documented in this encounter [employer] Summary Purpose Family History No Family History Records FoundNo Family History Records FoundNo Family History Records FoundNo Family History Records FoundNo Family History Records FoundNo Family History Records FoundNo Family History Records FoundNo Family History Records FoundNo Family History Records FoundNo Family History Records FoundNo Family History Records FoundNo Family History Records FoundNo Family History Records FoundNo Family History Records FoundNo Family History Records FoundNo Family History Records FoundNo Family History Records FoundNo Family History Records Found Advance Directives No Advanced Directives Records FoundDocuments on File Type Date Recorded 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 Advance Directives and Living Will Power of Fire Captain Marine Latest Code Status on File Code Status Date Activated Date Inactivated Comments Full Code 08/15/2018 4:17 PM 08/25/2018 8:55 PM Full Code 03/19/2017 1:37 PM 03/19/2017 4:32 PM Full Code 03/19/2017 10:57 AM 03/19/2017 1:37 PM Full Code 03/05/2017 12:56 PM 03/05/2017 3:55 PM Full Code 03/05/2017 10:05 AM 03/05/2017 12:56 PM Documents on File Type Date Recorded 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 ACP-Advance Directive ACP-Power of Fire Captain Marine Documents on File Type Date Recorded 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 ACP-Advance Directive ACP-Power of Fire Captain Marine Latest Code Status on File Code Status Date Activated Date Inactivated Comments Full Code 08/15/2018 4:17 PM 08/25/2018 8:55 PM Full Code 03/19/2017 1:37 PM 03/19/2017 4:32 PM Full Code 03/19/2017 10:57 AM 03/19/2017 1:37 PM Full Code 03/05/2017 12:56 PM 03/05/2017 3:55 PM Full Code 03/05/2017 10:05 AM 03/05/2017 12:56 PM Advance Directive Response Recorded Date/ Time Advance Directives No January 24, 2 022 10:40am Latest Code Status on File Code Status Date Activated Date Inactivated Comments Full Code 08/15/2018 4:17 PM 08/25/2018 8:55 PM Code Status History Code Status Date Activated Date Inactivated Comments Full Code 03/19/2017 1:37 PM 03/19/2017 4:32 PM Full Code 03/19/2017 10:57 AM 03/19/2017 1:37 PM Full Code 03/05/2017 12:56 PM 03/05/2017 3:55 PM Full Code 03/05/2017 10:05 AM 03/05/2017 12:56 PM Assessments Diagnosis MRSA (methicillin resistant Staphylococcus aureus) septicemia (HCC) Methicillin resistant staphylococcus aureus septicemia Diagnosis Vitamin D deficiency Unspecified vitamin D deficiency Mixed hyperlipidemia Hyperglycemia Other abnormal glucose 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 Diagnosis SOB (shortness of breath) Shortness of breath Diagnosis Acute thoracic back pain, unspecified back pain laterality- Primary Diagnosis MRSA (methicillin resistant Staphylococcus aureus) infection Methicillin resistant Staphylococcus aureus in conditions classified elsewhere and of unspecified site Diagnosis MRSA (methicillin resistant Staphylococcus aureus) septicemia (HCC) Methicillin resistant staphylococcus aureus septicemia 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 * Back Care Basics: General Info (Nepalese) * Back: Preventing Injuries (Nepalese) documented in this encounter Reason for Referral Status Reason Specialty Diagnoses / Procedures Referre d By Contact Referred To Contact Closed Radiology Diagnoses Brachial neuritis Peripheral nerve disorder Spasm of muscle Procedures MR Cervical Spine Without Contrast Tiffanie Casas MD [address] [place] [address] Specialty Diagnoses / Procedures Referred By Contac t Referred To Contact Radiology Diagnoses Neck mass Procedures US HEAD NECK SOFT TISSUE THYROID Felipe Adam MD [address] [place] [address] Referral ID Status Reason Start Date Expiration Date Visits Re quested Visits Authorized [id number] Closed 05/27/2022 05/27/2023 1 1 Chief Complaint and Reason for Visit Chief Complaint M54.16 M79.10 M79.60 9 R20.9 Additional Source Comments INFORMATION SOURCE (unrecogn ized section and content) DATE CREATED AUTHOR 03/30/2018 [facility] DATE CREATED AUTHOR AUTHOR'S ORGANIZ ATION 03/30/2018 [facility] DATE CREATED AUTHOR AUTHOR'S ORGANIZ ATION 09/15/2018 [facility] DATE CREATED AUTHOR AUTHOR'S ORGANIZ ATION 09/23/2018 [facility] DATE CREATED AUTHOR AUTHOR'S ORGANIZ ATION 09/26/2018 [facility] DATE CREATED AUTHOR AUTHOR'S ORGANIZ ATION 12/10/2018 [facility] DATE CREATED AUTHOR AUTHOR'S ORGANIZ ATION 12/18/2018 [facility] DATE CREATED AUTHOR AUTHOR'S ORGANIZ ATION 02/11/2019 [facility] DATE CREATED AUTHOR AUTHOR'S ORGANIZ ATION 11/30/2021 [facility] DATE CREATED AUTHOR AUTHOR'S ORGANIZ ATION 02/21/2022 [facility] DATE CREATED AUTHOR AUTHOR'S ORGANIZ ATION 05/01/2022 [facility] DATE CREATED AUTHOR AUTHOR'S ORGANIZ ATION 08/22/2022 [facility] DATE CREATED AUTHOR AUTHOR'S ORGANIZ ATION 01/12/2023 [facility] DATE CREATED AUTHOR AUTHOR'S ORGANIZ ATION 02/15/2023 [facility] DATE CREATED AUTHOR AUTHOR'S ORGANIZ ATION 03/14/2023 [facility] DATE CREATED AUTHOR AUTHOR'S ORGANIZ ATION 04/04/2023 [facility] DATE CREATED AUTHOR AUTHOR'S ORGANIZ ATION 08/26/2023 [facility] DATE CREATED AUTHOR AUTHOR'S ORGANIZ ATION 10/30/2023 [facility] EPIC Reason for Visit (unrecogniz ed section and content) Status Reason Specialty Diagnoses / Procedures Referre d By Contact Referred To Contact Closed Radiology Diagnoses Brachial neuritis Peripheral nerve disorder Spasm of muscle Procedures MR Cervical Spine Without Contrast Tiffanie Casas MD [address] [place] [id number] Specialty Diagnoses / Procedures Referred By Contac t Referred To Contact Occupational Therapy Diagnoses Carpal tunnel syndrome Carpal Tunnel Syndrome Procedures Eval and treat Keenan Lozano MD [address] [address] [facility] [address] [place] [address] Referral ID Status Reason Start Date Expiration Date Visits Re quested Visits Authorized [id number] Open 12/19/2021 12/19/2022 1 1 Specialty Diagnoses / Procedures Referred By Contac t Referred To Contact Physical Therapy Diagnoses Radiculopathy, lumbar region Lumbar Radiculopathy Procedures Eval and treat Janel Allen, HELICOPTER ENGINEER - CLINICAL MICROBIOLOGIST [address] [place] [address] [facility] [address] [place] [address] Referral ID Status Reason Start Date Expiration Date Visits Re quested Visits Authorized [id number] Open 12/19/2021 12/19/2022 1 1 Specialty Diagnoses / Procedures Referred By Contac t Referred To Contact Radiology Diagnoses Neck mass Procedures US HEAD NECK SOFT TISSUE THYROID Back, MD Felipe [address] [place] [address] Referral ID Status Reason Start Date Expiration Date Visits Re quested Visits Authorized [id number] Closed 05/27/2022 05/27/2023 1 1 Specialty Diagnoses / Procedures Referred By Thor t Referred To Contact Radiology Diagnoses Pain of foot, unspecified laterality Closed nondisplaced fracture of lateral cuneiform of left foot, initial encounter Procedures MRI FOOT LEFT W WO CONTRAST MRI FOOT LEFT W WO CONTRAST Robbin Sánchez, DPM [address] [facility] [place], [address] [place] [id number] Referral ID Status Reason Start Date Expiration Date Visits Re quested Visits Authorized [id number] Closed 06/20/2022 06/20/2023 1 1 Reason Comments Education Class Specialty Diagnoses / Procedures Referred By Thor bernal Referred To Contact Diabetes Services Diagnoses Pre-diabetes Felipe Adam MD [address] [place] [address] [facility] [address] [place] [phone] Referral ID Status Reason Start Date Expiration Date V isits Requested Visits Authorized [id number] Open Specialty Services Required 06/30/2022 06/30/2023 2 2 Specialty Diagnoses / Procedures Referred By Thor bernal Referred To Contact Diabetes Services Diagnoses Pre-diabetes Felipe Adam MD [address] [place] [address] [facility] [address] [place] [address] Reason Comments Other Left foot charcot on -going since 06/2022. New x-rays today. 2nd of opinion. Care Teams (unrecognized sec tion and content) Garden Center Manager Relationship Specialty Start Date End Date Felipe Adam MD [address] [place] [address] PCP - General Internal Medicine 11/14/11 Garden Center Manager Relationship Specialty Start Date End Date Felipe Adam MD [address] [place] [address] PCP - General Internal Medicine 11/14/11 Garden Center Manager Relationship Specialty Start Date End Date Back, MD Felipe [address] [place] [id number] PCP - General Internal Medicine 11/14/11 Garden Center Manager Relationship Specialty Start Date End Date Back, MD Felipe [address] [place] [address] PCP - General Internal Medicine 11/14/11 Garden Center Manager Relationship Specialty Start Date End Date Back, MD Felipe [address] [place] [id number] PCP - General Internal Medicine 11/14/11 Garden Center Manager Relationship Specialty Start Date End Date Back, MD Felipe [address] [place] [address] PCP - General Internal Medicine 11/14/11 Garden Center Manager Relationship Specialty Start Date End Date Back, MD Felipe [address] [place] [id number] PCP - General Internal Medicine 11/14/11 Team Status: Inactive Member Role Status Dates NON STAFF Primary Care Provider Active Tiffanie Casas MD Attending Provider Active Team Status: Active Member Role Status Dates NON STAFF Primary Care Provider Active Garden Center Manager Relationship Specialty Start Date End Date Back, MD Felipe [address] [place] [id number] PCP - General Internal Medicine 11/14/11 Garden Center Manager Relationship Specialty Start Date End Date Back, MD Felipe [address] [place] [id number] PCP - General Internal Medicine 11/14/11 Garden Center Manager Relationship Specialty Start Date End Date Back, MD Felipe [address] [place] [id number] PCP - General Internal Medicine 11/14/11 Garden Center Manager Relationship Specialty Start Date End Date Back, MD Felipe [address] [id number] PCP - General Internal Medicine 11/14/11 Garden Center Manager Relationship Specialty Start Date End Date Back, MD Felipe [address] [place] [facility] [place] [address] PCP - General Internal Medicine 11/14/11 Garden Center Manager Relationship Specialty Start Date End Date Back, MD Felipe [address] [place] [facility] [place] [address] PCP - General Internal Medicine 11/14/11 Garden Center Manager Relationship Specialty Start Date End Date Back, MD Felipe [address] [place] [facility] [place] [address] PCP - General Internal Medicine 11/14/11 Garden Center Manager Relationship Specialty Start Date End Date Back, MD Felipe [address] [place] [address] PCP - General Internal Medicine 11/14/11 Garden Center Manager Relationship Specialty Start Date End Date Back, MD Felipe [address] [place] [id number] PCP - General Internal Medicine 03/26/15 Garden Center Manager Relationship Specialty Start Date End Date Back, MD Felipe [address] [place] [id number] PCP - General Internal Medicine 11/14/11 Goals (unrecognized section and content) Goals may be documented in a n alternate section FOR RECORDS PERTAINING TO PATIENTS WHO ARE OR HAVE BEEN ENROLLED IN A CHEMICAL DEPENDENCY/SUBSTANCEABUSE PROGRAM, SOME INFORMATION MAY BE OMITTED. This clinical summary was aggregated from multiple sources. Caution should be exercised in using it in the provision of clinical care. This summary normalizes information from multiple sources, and as a consequence, information in this document may materially change the coding, format and clinical context of patient data. In addition, data may be omitted in some cases. CLINICAL DECISIONS SHOULD BE BASED ON THE PRIMARY CLINICAL RECORDS. [facility] [employer] [facility] provides no warranty or guarantee of the accuracy or completeness of information in this document.
== END 2023-12-01 10:03 | disposition home or self-care (01) ==
LOC: EC 10:02
PROVIDERS: Visit Provider Podiatrist Foot & Ankle Surgery
DX: M14.672 Charcot's joint, left ankle and foot (principal)
CPT/HCPCS: 73630

== ENCOUNTER 2023-12-10 12:41 | Outpatient (OUT) | payer BC, SELFPAY ==
--- NOTE | 2023-12-10 12:49 | CT_ITS ---
[address] [address] Patient Name: CHASTITY GASPAR MRN: [id number] date: 1980 Sex: F Assigned Patient Location: CT Current Patient Location: CT Accession/Order Number: [id number] Exam Date: 12/10/2023 12:55 Report Date: 12/12/2023 06:33 At the request of: FRANCES HARRIS Procedure: CT foot LT wo con EXAMINATION: CT foot LT wo con HISTORY: Charcot Midfoot COMPARISON: No relevant comparison available. TECHNIQUE: Multi-planar CT images were created without and/or with IV contrast according to examination type. Dose reduction techniques were achieved by using automated exposure control and/or adjustment of mA and/or kV according to patient size and/or use of iterative reconstruction technique. FINDINGS: BONES: Advanced degenerative and erosive changes of the bones the midfoot with subsequent loss of plantar arch. No acute fracture. SOFT TISSUES: Soft tissue swelling surrounding the bones of the midfoot. Generalized subcutaneous edema of the foot and ankle. EFFUSION: None visible. OTHER: Negative. CT/CT foot LT wo con IMPRESSION: 1. Advanced degenerative changes of the midfoot compatible with Charcot joint. 2. No appreciable acute abnormality. Electronically authenticated by: PIPER MECREDES Date: 12/12/2023 06:33
--- OUTSIDE RECORDS SUMMARY | 2023-12-10 12:56 | XMS_ITS | CCD ---
Author Name Unknown Address [id number] [place] [address] Organization [facility] Care Team Providers Care Audio Visual Tech Name Role Phone Back, Felipe Unavailable Unavailable [...] Care Unavailable Back, Felipe Primary Care Provider [phone] Back, Felipe Primary Care Provider [phone] Back, Felipe Primary Care Provider Unavailabl e Back , Felipe Primary Care Provider Back , Felipe Primary Care Provider Back , Felipe Primary Care Provider [phone] BACK, FELIPE Primary Care Unavailable MUTNAL, AMAR Admitting Unavailable MUTNAL, AMAR Attending Unavailable Back , Felipe Primary Care Provider [phone] NON STAFF Primary Care Provider UnavailMD Tiffanie Mixon. Attending Provider Back , Felipe Primary Care Provider [phone] YOON COBB Referring Unavailable BACK, FELIPE Primary Care Unavailable Back , Felipe Primary Care Provider [phone] [employer] Attending Unavail able BACK, FELIPE Primary Care Unavailable Back , Felipe Primary Care Provider [phone] FRANCES HARRIS Admitting Unavailable FRANCES HARRIS Attending Unavailable FRANCES HARRIS Consulting Unavailable HIGHLFRANCES HERNANDEZ Admitting Unavailable HIGHLFRANCES HERNANDEZ Attending Unavailable [facility], DR PIPER Ackerman Consulting Unavailable HIGHLANDERFRANCES Consulting Unavailable HIGHLANDERFRANCES Admitting Unavailable HIGHLANDERFRANCES Attending Unavailable COLLINS, DR EMILY Riojas Consulting Unavailable HIGHLFRANCES HERNANDEZ Consulting Unavailable Back , Felipe Primary Care Provider ROBBIN SHOOK II Admitting Un available HASSMANN II, ROBBIN DAHL Referring Un available BACK, FELIPE Primary Care Unavailable HASSMANN II, ROBBIN DAHL Attending Un available BACK, FELIPE Primary Care Unavailable BACK, FELIPE Primary Care Unavailable HASSMANN II, ROBBIN DAHL Attending Un available Back Felipe MELENDREZ Primary Care Provider [phone] BACKFELIPE Referring Unavailable BACK, FELIPE Primary Care [...] Chlorhexidine; Translations: [CHLORHEXIDINE] Drug Allergy 03-03-2023 Rash [facility] Medications Current Medications Medication Drug Class(es) Dates [...] oral tablet (1 source) alpha-Adrenergic Agonist, Uncompetitive O-npvemg-L-aspartat e Receptor Antagonist, Sigma-1 Agonist Start: 02-13-2021 [...] 38.0 to 38.9 in adult ([facility]) Take 1 tablet by mouth [...] 40.0 to 44.9 in adult ([facility]) Take 1 capsule by mouth [...] 08-25-2018 take 1 capsule by mo [facility] three times daily pregabalin (LYRICA) 150 MG [...] Start: 07-06-2019 take 2 tablets by mo [facility] once daily sertraline (ZOLOFT) 50 MG tablet [...] of skin] Onset: 02-05-2018 08-03-2017 Episodic 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 infection and poliomyelitis (20 sources) Extradural and [...] Lauren Jr., MD 08/24/23 Final result Normal [facility] Lipid Panelon 06-15-2023 Cholesterol [Mass/Vol] 174 mg/dL NINF - 200 mg/dL [facility] Comment on above: Cholesterol Guidelines: <200 Desirable 200-240 Borderline >240 Undesirable Cholesterol in HDL [Mass/Vol] 30 mg/dL Low 40 - PINF mg/dL [facility] Comment on above: HDL Guidelines: <40 Undesirable 40-59 Borderline >59 Desirable Cholesterol in LDL [Mass/Vol] 77 mg/dL 0 - 130 mg/dL [facility] [employer] Comment on above: LDL Guidelines: <100 Desirable 100-129 Near to/above Desirable 130-159 Borderline >159 Undesirable Direct (measured) LDL and calculated LDL are not interchangeable tests. Cholesterol.total/Cho lesterol in HDL [Mass ratio] 5.8 {ratio} High NINF - 5 [facility] [employer] Interpretation and review of laboratory results Abnormal [facility] Triglyceride [Mass/Vol] 334 mg/dL High NINF - 150 mg/dL [facility] Comment on above: Triglyceride Guidelines: <150 Desirable 150-199 Borderline 200-499 High >499 Very high Based on AHA Guidelines for fasting triglyceride, July 2012. [facility] Lipid Profileon 06-15-2023 Cholesterol [Mass/Vol] 174 mg/dL Normal <200 [facility] Comment on above: Result Comment: Cholesterol Guidelines: <200 Desirable 200-240 Borderline >240 Undesirable Performed By: #### L IPR #### [employer] [address] [place] [phone] [employer] Operator: Placido Pierce MD Cholesterol in HDL [Mass/Vol] 30 mg/dL Low >40 [facility] Comment on above: Result Comment: HDL Guidelines: <40 Undesirable 40-59 Borderline >59 Desirable Performed By: #### L IPR #### [email or web address] [facility] [address] [place] [address] [phone] [employer] Operator: Placido Pierce MD Cholesterol in LDL [Mass/Vol] 77 mg/dL Normal 0-130 [facility] Comment on above: Result Comment: LDL Guidelines: <100 Desirable 100-129 Near to/above Desirable 130-159 Borderline >159 Undesirable Direct (measured) LDL and calculated LDL are not interchangeable tests. Performed By: #### L IPR #### [employer] [facility] [address] [place] [address] [employer] Operator: Placido Pierce MD Cholesterol.total/Cho lesterol in HDL [Mass ratio] 5.8 {ratio} High <5 [facility] Comment on above: Performed By: #### L IPR #### [employer] [address] [place] [phone] [employer] Operator: Placido Pierce MD Triglyceride [Mass/Vol] 334 mg/dL High <150 [facility] Comment on above: Result Comment: Triglyceride Guidelines: <150 Desirable 150-199 Borderline 200-499 High >499 Very high Based on AHA Guidelines for fasting triglyceride, July 2012. Performed By: #### L IPR #### [employer] [address] [place] [address] [place] [phone] [employer] Operator: Placido Pierce MD US THYROIDon 06-15-2023 US [...] Lauren Jr., MD 06/15/23 Final result Normal [facility] PTH, Intacton 05-17-2023 PTH, Intact 47.1 pg/mL Normal 14.0-72.0 [facility] Comment on above: Result Comment: SAMP LES FROM PATIENTS ROUTINELY RECEIVING HIGH DOSE BIOTIN THERAPY MAY SHOW FALSELY DEPRESSED RESULTS. ADDITIONAL INFORMATION MAY BE REQUIRED FOR DIAGNOSIS. Performed By: #### B UNCRT, K, NA, GLU, CL, CDP #### [facility] [address] [place] [address] [employer] Operator: Emily George MD #### GLYHGB #### [facility] [address] [place], [place] [phone] [employer] Operator: Placido Pierce MD Protein,Tot,[place] [employer] 2022 Creatinine [Mass/Vol] 146.1 mg/dL Normal 28.0-217.0 [facility] Comment on above: Performed By: #### B UNCRT, K, NA, GLU, CL, CDP #### [facility] [address] [place] [address] [employer] Operator: Emily George MD #### GLYHGB #### [address] [address] [employer] Operator: Placido Pierce MD Tot Prot. Conc. 10 mg/dL Normal [facility] Comment on above: Result Comment: No n ormal range established. Performed By: #### B UNCRT, K, NA, GLU, CL, CDP #### [facility] [address] [place] [address] [employer] Operator: Emily George MD #### GLYHGB #### [address] [address] [employer] Operator: Placido Pierce MD TP/Cre Ratio 0.07 Normal 0.00-0.20 [facility] Comment on above: Performed By: #### B UNCRT, K, NA, GLU, CL, CDP #### [facility] [address] [place] [phone] ( [employer] Operator: Emily George MD #### GLYHGB #### [address] [phone] [employer] Operator: Placido Pierce MD Renal Function Panelon 05-17 Albumin [Mass/Vol] 4.1 g/dL Normal 3.5-5.2 [facility] Comment on above: Performed By: #### B UNCRT, K, NA, GLU, CL, CDP #### [facility] [address] [place] [phone] [employer] Operator: Emily George MD #### GLYHGB #### [address] [phone] [employer] Operator: Placido Pierce MD Anion gap [Moles/Vol] 7 mmol/L Low 9-17 [facility] Comment on above: Performed By: #### B UNCRT, K, NA, GLU, CL, CDP #### [facility] [address] [place] [address] ( [employer] Operator: Emily George MD #### GLYHGB #### [address] [phone] [employer] Operator: Placido Pierce MD BUN/CRE Ratio 15 Normal 9-20 [facility] Comment on above: Performed By: #### B UNCRT, K, NA, GLU, CL, CDP #### [facility] [address] [place] [phone] ( [employer] Operator: Emily George MD #### GLYHGB #### [place] [phone] [employer] Operator: Placido Pierce MD Calcium [Mass/Vol] 9.5 mg/dL Normal 8.6-10.4 [facility] Comment on above: Performed By: #### B UNCRT, K, NA, GLU, CL, CDP #### [facility] [address] [place] [address] [employer] Operator: Emily George MD #### GLYHGB #### [address] [phone] [employer] Operator: Placido Pierce MD Chloride [Moles/Vol] 101 mmol/L Normal 98-107 [facility] Comment on above: Performed By: #### B UNCRT, K, NA, GLU, CL, CDP #### [facility] [address] [place] [address] [employer] Operator: Emily George MD #### GLYHGB #### [address] [phone] [employer] Operator: Placido Pierce MD CO2 [Moles/Vol] 29 mmol/L Normal 20-31 [facility] Comment on above: Performed By: #### B UNCRT, K, NA, GLU, CL, CDP #### [facility] [address] [place], [place] [phone] [employer] Operator: Emily George MD #### GLYHGB #### [address] [place], [place] 3050008 [employer] Operator: Placido Pierce MD Creatinine [Mass/Vol] 1.1 mg/dL High 0.5-0.9 [facility] Comment on above: Performed By: #### B UNCRT, K, NA, GLU, CL, CDP #### [facility] [address] [place] [address] [employer] Operator: Emily George MD #### GLYHGB #### [address] [place] [address] [employer] Operator: Placido Pierce MD GFR/1.73 sq M.predicted among non-blacks MDRD (S/P/Bld) [Vol rate/Area] mL/min/{1.73_m2} Normal >60 [facility] Comment on above: Result Comment: These results [...] UNCRT, K, NA, GLU, CL, CDP #### [facility] [address] [place], [place] [phone] [employer] Operator: Emily George MD #### GLYHGB #### [address] [place], [place] [phone] [employer] Operator: Placido Pierce MD Glucose [Mass/Vol] 105 mg/dL High 70-99 [facility] Comment on above: Performed By: #### B UNCRT, K, NA, GLU, CL, CDP #### [facility] [address] [place], [place] [phone] [employer] Operator: Emily George MD #### GLYHGB #### [address] [phone] [employer] Operator: Placido Pierce MD Phosphorus, Inorg. 3.0 mg/dL Normal 2.6-4.5 [facility] Comment on above: Performed By: #### B UNCRT, K, NA, GLU, CL, CDP #### [facility] [address] [place] [address] [employer] Operator: Emily George MD #### GLYHGB #### [address] [phone] [employer] Operator: Placido Pierce MD Potassium [Moles/Vol] 4.3 mmol/L Normal 3.7-5.3 [facility] Comment on above: Performed By: #### B UNCRT, K, NA, GLU, CL, CDP #### [facility] [address] [place] [address] [employer] Operator: Emily George MD #### GLYHGB #### [address] [phone] [employer] Operator: Placido Pierce MD Sodium [Moles/Vol] 137 mmol/L Normal 135-144 [facility] Comment on above: Performed By: #### B UNCRT, K, NA, GLU, CL, CDP #### [facility] [address] [place] [address] [employer] Operator: Emily George MD #### GLYHGB #### [address] [phone] [employer] Operator: Placido Pierce MD Urea nitrogen [Mass/Vol] 17 mg/dL Normal 6-20 [facility] Comment on above: Performed By: #### B UNCRT, K, NA, GLU, CL, CDP #### [facility] [address] [place], [place] [phone] [employer] Operator: Emily George MD #### GLYHGB #### [facility] [employer] [address] [place], [place] [phone] [employer] Operator: Placido Pierce MD Vitamin D 25 OHon 05-17-2023 Vitamin D 25 [place] 53.1 ng/mL Normal >29.9 [facility] Comment on above: Result Comment: Reference Range: Vitamin D status Range Deficiency <20 ng/mL Mild Deficiency 20-30 ng/mL Sufficiency 30-100 ng/mL Toxicity >100 ng/mL Performed By: #### B UNCRT, K, NA, GLU, CL, CDP #### [facility] [address] [place] [address] [employer] Operator: Emily George MD #### GLYHGB #### [facility] [facility] [address] [place], [place] [phone] [employer] Operator: Placido Pierce MD XR ORTHO FOOT LEFTon [...] ThuMarch 04, 2023 4:22:25 PM EDT Normal [facility] Comment on above: Order Comment: Injur y/Trauma or Illness?:Illness/Other How long have you had these symptoms (acute/chronic)?:Chronic Reason for exam?:Left foot charcot History of cancer?:Unknown Surgeries, chemotherapy, or radiation?:Unknown Type of Exam?:Initial Additional signs and symptoms?:Left foot charcot Cult,Urineon 02-07-2023 Cult,Urine Specimen Description .CLEAN CATCH URINE Culture ESCHERICHIA COLI >[id number] CFU/ML Report Status FINAL 02/07/2023 SUSCEPTIBILITY Organism [...] Tobramycin <=1 SUSCEPTIBLE Trimethoprim/Sulfa >=320 RESISTANT Resistant [facility] Comment on above: Performed By: #### B UNCRT, K, NA, GLU, CL, CDP #### [facility] [address] [place] [address] [employer] Operator: Emily George MD #### GLYHGB #### [facility] [place], [place] 2475108 [employer] Operator: Placido Pierce MD Hemoglobin A1Con 02-06-2023 Glucose [Mass/Vol] 103 mg/dL Normal [facility] Comment on above: Result Comment: The ADA and AACC recommend providing the estimated average glucose result to permit better patient understanding of their HBA1c result. Performed By: #### B UNCRT, K, NA, GLU, CL, CDP #### [facility] [address] [place] [address] [employer] Operator: Emily George MD #### GLYHGB #### [facility] [place], [place] [phone] [employer] Operator: Placido Pierce MD HbA1c (Bld) [Mass fraction] 5.2 % Normal 4.0-6.0 [facility] Comment on above: Performed By: #### B UNCRT, K, NA, GLU, CL, CDP #### [facility] [address] [place] [address] [employer] Operator: Emily George MD #### GLYHGB #### [facility] [address] [place] [address] [employer] Operator: Placido Pierce MD BUN & Creatinineon 3 Creatinine [Mass/Vol] 1.08 mg/dL High 0.50 - 0.90 mg/dL [facility] GFR/1.73 sq M.predicted MDRD (S/P/Bld) [Vol rate/Area] - PINF [facility] Comment on above: These results are not [...] 21 mg/dL High 6 - 20 mg/dL [facility] BUN + Creatinineon 3 Creatinine [Mass/Vol] 1.08 mg/dL High 0.50-0.90 [facility] Comment on above: Performed By: #### B UNCRT, K, NA, GLU, CL, CDP #### [facility] [address] [place] [address] [employer] Operator: Emily George MD #### GLYHGB #### [facility] [address] [place] [address] [employer] Operator: Placido Pierce MD GFR/1.73 sq M.predicted among non-blacks MDRD (S/P/Bld) [Vol rate/Area] mL/min/{1.73_m2} Normal >60 [facility] Comment on above: Result Comment: These results [...] UNCRT, K, NA, GLU, CL, CDP #### [facility] [address] [place], [place] [phone] [employer] Operator: Emily George MD #### GLYHGB #### [facility] [address] [place], [place] [phone] [employer] Operator: Placido Pierce MD Urea nitrogen [Mass/Vol] 21 mg/dL High 6-20 [facility] Comment on above: Performed By: #### B UNCRT, K, NA, GLU, CL, CDP #### [facility] [address] [place] [address] [employer] Operator: Emily George MD #### GLYHGB #### [facility] [address] [place], [place] [phone] [employer] Operator: Placido Pierce MD CBC with Auto Differentialon 02-05-2023 Absolute Eos # 0.10 [facility] Absolute Lymph # 1.70 [facility] Absolute [place] # 0.50 [facility] Basophils (Bld) [#/Vol] 0.00 10*3/uL [facility] Basophils/100 WBC (Bld) 1 % 0 - 2 % [facility] Differential Type YES [facility] Eosinophils/100 WBC (Bld) 1 % 0 - 5 % [facility] Hematocrit (Bld) [Volume fraction] 36.2 % 36 - 46 % [facility] Hemoglobin (Bld) [Mass/Vol] 12.2 g/dL 12.0 - 16.0 g/dL [facility] Interpretation and review of laboratory results Abnormal [facility] Lymphocytes/100 WBC (Bld) 23 % 15 - 40 % [facility] MCH (RBC) [Entitic mass] 28.7 pg 26 - 34 pg [facility] MCHC (RBC) [Mass/Vol] 33.7 g/dL 31 - 37 g/dL B [facility] MCV (RBC) [Entitic vol] 85.3 fL 80 - 100 fL [facility] Monocytes/100 WBC (Bld) 7 % 4 - 8 % [facility] Platelet distribution width (Bld) [Ratio] 18.1 % High 12.1 - 15.2 % [facility] Platelets (Bld) [#/Vol] 150 10*3/uL [facility] RBC (Bld) [#/Vol] 4.25 10*6/uL 4.0 - 5.2 m/uL [facility] Segmented neutrophils/100 WBC (Bld) 68 % 47 - 75 % [facility] Segs Absolute 5.30 [facility] WBC (Bld) [#/Vol] 7.6 10*3/uL [facility] CBC with Diffon 02-05-2023 Abs. Basophil 0.00 k/uL Normal 0.0-0.2 [facility] Comment on above: Performed By: #### B UNCRT, K, NA, GLU, CL, CDP #### [facility] [address] [place] [address] [employer] Operator: Emily George MD #### GLYHGB #### [facility] [address] [place] [address] [employer] Operator: Placido Pierce MD Abs.Neutrophil (Seg) 5.30 k/uL Normal 2.5-7.0 [facility] Comment on above: Performed By: #### B UNCRT, K, NA, GLU, CL, CDP #### [facility] [address] [place] [address] [employer] Operator: Emily George MD #### GLYHGB #### [facility] [address] [place] [address] [employer] Operator: Placido Pierce MD Auto Diff Performed YES Normal [facility] Comment on above: Performed By: #### B UNCRT, K, NA, GLU, CL, CDP #### [facility] [address] [place], [place] [phone] [employer] Operator: Emily George MD #### GLYHGB #### [address] [phone] [employer] Operator: Placido Pierce MD Basophils/100 WBC (Bld) 1 % Normal 0-2 [facility] Comment on above: Performed By: #### B UNCRT, K, NA, GLU, CL, CDP #### [facility] [address] [place], [place] [phone] [employer] Operator: Emily George MD #### GLYHGB #### [address] [phone] [employer] Operator: Placido Pierce MD Eosinophils (Bld) [#/Vol] 0.10 10*3/uL Normal 0.0-0.4 [facility] Comment on above: Performed By: #### B UNCRT, K, NA, GLU, CL, CDP #### [facility] [address] [place], [place] [phone] [employer] Operator: Emily George MD #### GLYHGB #### [address] [address] [employer] Operator: Placido Pierce MD Eosinophils/100 WBC (Bld) 1 % Normal 0-5 [facility] Comment on above: Performed By: #### B UNCRT, K, NA, GLU, CL, CDP #### [facility] [address] [place], [place] [phone] [employer] Operator: Emily George MD #### GLYHGB #### [address] [phone] [employer] Operator: Placido Pierce MD Erythrocyte distribution width (RBC) [Ratio] 18.1 % High 12.1-15.2 [facility] Comment on above: Performed By: #### B UNCRT, K, NA, GLU, CL, CDP #### [facility] [address] [place], [place] [phone] [employer] Operator: Emily George MD #### GLYHGB #### [address] [phone] [employer] Operator: Placido Pierce MD Hematocrit (Bld) [Volume fraction] 36.2 % Normal 36-46 [facility] Comment on above: Performed By: #### B UNCRT, K, NA, GLU, CL, CDP #### [facility] [address] [place] [phone] [employer] Operator: Emily George MD #### GLYHGB #### [address] [phone] [employer] Operator: Placido Pierce MD Hemoglobin (Bld) [Mass/Vol] 12.2 g/dL Normal 12.0-16.0 [facility] Comment on above: Performed By: #### B UNCRT, K, NA, GLU, CL, CDP #### [facility] [address] [place] [phone] [employer] Operator: Emily George MD #### GLYHGB #### [address] [phone] [employer]: Placido Pierce MD Lymphocytes (Bld) [#/Vol] 1.70 10*3/uL Normal 1.0-4.8 [facility] Comment on above: Performed By: #### B UNCRT, K, NA, GLU, CL, CDP #### [facility] [address] [place] [phone] [employer] Operator: Emily George MD #### GLYHGB #### [address] [place], [place] 5022408 [employer] Operator: Placido Pierce MD Lymphocytes/100 WBC (Bld) 23 % Normal 15-40 [facility] Comment on above: Performed By: #### B UNCRT, K, NA, GLU, CL, CDP #### [facility] [address] [place] [address] ( [employer] Operator: Emily George MD #### GLYHGB #### [place] [phone] [employer] Operator: Placido Pierce MD MCH (RBC) [Entitic mass] 28.7 pg Normal 26-34 [facility] Comment on above: Performed By: #### B UNCRT, K, NA, GLU, CL, CDP #### [facility] [address] [place] [id number] ( [employer] Operator: Emily George MD #### GLYHGB #### [place] [id number] [employer] Operator: Placido Pierce MD MCHC (RBC) [Mass/Vol] 33.7 g/dL Normal 31-37 [facility] Comment on above: Performed By: #### B UNCRT, K, NA, GLU, CL, CDP #### [facility] [address] [place] [address] ( [employer] Operator: Emily George MD #### GLYHGB #### [place] [id number] [employer] Operator: Placido Pierce MD MCV (RBC) [Entitic vol] 85.3 fL Normal 80-100 [facility] Comment on above: Performed By: #### B UNCRT, K, NA, GLU, CL, CDP #### [facility] [address] [place] [address] ( [employer] Operator: Emily George MD #### GLYHGB #### [place] [id number] [employer] Operator: Placido Pierce MD Monocytes (Bld) [#/Vol] 0.50 10*3/uL Normal 0.0-1.0 [facility] Comment on above: Performed By: #### B UNCRT, K, NA, GLU, CL, CDP #### [facility] [address] [place] [address] ( [employer] Operator: Emily George MD #### GLYHGB #### [place] [id number] [employer] Operator: Placido Pierce MD Monocytes/100 WBC (Bld) 7 % Normal 4-8 [facility] Comment on above: Performed By: #### B UNCRT, K, NA, GLU, CL, CDP #### [facility] [address] [place] [id number] ( [employer] Operator: Emily George MD #### GLYHGB #### [place] [address] [employer] Operator: Placido Pierce MD Neutrophil (Seg) 68 % Normal 47-75 [facility] Comment on above: Performed By: #### B UNCRT, K, NA, GLU, CL, CDP #### [facility] [address] [place] [address] [employer] Operator: Emily George MD #### GLYHGB #### [place] [address] [employer] Operator: Placido Pierce MD Platelets (Bld) [#/Vol] 150 10*3/uL Normal 140-450 [facility] Comment on above: Performed By: #### B UNCRT, K, NA, GLU, CL, CDP #### [facility] [address] [place], [place] [id number] [employer] Operator: Emily George MD #### GLYHGB #### [address] [id number] [employer] Operator: Placido Pierce MD RBC (Bld) [#/Vol] 4.25 10*6/uL Normal 4.0-5.2 [facility] Comment on above: Performed By: #### B UNCRT, K, NA, GLU, CL, CDP #### [facility] [address] [place], [place] [phone] [employer] Operator: Emily George MD #### GLYHGB #### [address] [address] [employer] Operator: Placido Pierce MD WBC (Bld) [#/Vol] 7.6 10*3/uL Normal 3.5-11.0 [facility] Comment on above: Performed By: #### B UNCRT, K, NA, GLU, CL, CDP #### [facility] [address] [place], [place] [phone] [employer] Operator: Emily George MD #### GLYHGB #### [address] [address] [employer] Operator: Placido Pierce MD Chlorideon 02-05-2023 Chloride [Moles/Vol] 99 mmol/L Normal 98-107 [facility] Comment on above: Performed By: #### B UNCRT, K, NA, GLU, CL, CDP #### [facility] [address] [place], [place] [id number] [employer] Operator: Emily George MD #### GLYHGB #### [address] [address] [employer] Operator: Placido Pierce MD Chloride [Moles/Vol] 99 mmol/L 98 - 10 7 mmol/L [facility] Glucoseon 02-05-2023 Glucose [Mass/Vol] 107 mg/dL High 70-99 [facility] Comment on above: Performed By: #### B UNCRT, K, NA, GLU, CL, CDP #### [facility] [address] [place] [address] [employer] Operator: Emily George MD #### GLYHGB #### [facility] [address] [place] [address] [employer] Operator: Placido Pierce MD Glucose, Randomon 02-05-2023 Glucose [Mass/Vol] 107 mg/dL High 70 - 99 mg/dL [facility] K (Potassium)on 02-05-2023 Potassium [Moles/Vol] 4.6 mmol/L Normal 3.7-5.3 [facility] Comment on above: Performed By: #### B UNCRT, K, NA, GLU, CL, CDP #### [facility] [address] [place] [address] [employer] Operator: Emily George MD #### GLYHGB #### [facility] [place] [address] [employer] Operator: Placido Pierce MD NA (Sodium)on 02-05-2023 Sodium [Moles/Vol] 134 mmol/L Low 135-144 [facility] Comment on above: Performed By: #### B UNCRT, K, NA, GLU, CL, CDP #### [facility] [address] [place] [address] [employer] Operator: Emily George MD #### GLYHGB #### [facility] [place] [address] [employer] Operator: Placido Pierce MD No Panel Informationon 02-05 Interpretation and review of laboratory results Abnormal [facility] Potassiumon 02-05-2023 Potassium [Moles/Vol] 4.6 mmol/L 3.7 - 5.3 mmol/L [facility] Sodiumon 02-05-2023 Sodium [Moles/Vol] 134 mmol/L Low 135 - 144 mmol/L [facility] [employer] Trichomonas/Wet Prepon 02-05 Trichomonas/Wet Prep Specimen Descriptio n .VAGINA Direct Exam FEW WBC MODERATE EPITHELIAL CELLS MODERATE BACTERIA NO TRICHOMONAS SEEN NO FUNGAL ELEMENTS SEEN NO CLUECELL SEEN Report Status FINAL 02/05/2023 Normal [facility] Comment on above: Performed By: #### B UNCRT, K, NA, GLU, CL, CDP #### [facility] [address] [place] [address] [employer] Operator: Emily George MD #### GLYHGB #### [facility] [address] [place], [place] [phone] [employer] Operator: Placido Pierce MD Wet Prep, Genitalon 02-06-20 Interpretation and review of laboratory results Abnormal [facility] [employer] Microorganism or agent identified Nom (Unsp spec) FEW WBC Abnormal [facility] [employer] Microorganism or agent identified Nom (Unsp spec) MODERATE EPITHELIAL CELLS Abnormal [facility] [employer] Microorganism or agent identified Nom (Unsp spec) MODERATE BACTERIA Abnormal [facility] [employer] Microorganism or agent identified Nom (Unsp spec) NO TRICHOMONAS SEEN [facility] [employer] Microorganism or agent identified Nom (Unsp spec) NO FUNGAL ELEMENTS SEEN [facility] [employer] Microorganism or agent identified Nom (Unsp spec) NO CLUECELL SEEN [facility] [employer] Specimen Description .VAGINA [facility] CT FOOT LT WO CONon 02-05-20 23 [...] by: EMILY ELY Date: 2023-02-04 20:14 Normal [facility] XR ANKLE LEFT 3+ VIEWS (ABDOULAYE GALVAN)on [...] ThuJan 06, 2023 6:11:26 PM EDT Normal 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 [facility] RIS CONSOLIDATED EXAM: MRI FOOT LEFT [...] osteomyelitis. No nonenhancing abscess pockets are identified. [facility] Mike Montgomery M D - 06/25/2022 [...] fragmentation of the navicular and cuneiform bones. [facility] Work Phone: Radiology Study observation (narrative) [employer] Phone: MRI FOOT LEFT W WO CONTRASTO rdered By: Mike Villavicencio on 06-25-2022 [employer] Phone: XR FOOT LEFT (2 VIEWS)on There is a linear metallic foreign body projecting between the second and third metatarsals. There is also a metallic foreign body within the lower leg. There is fragmentation of the navicular as well as of all 3 cuneiforms. The appearance is consistent with the patient's history of neuropathy. [facility] CONSOLIDATED EXAM: XR FOOT LEFT ( 2 VIEWS) HISTORY: M79.5. The patient is a 42-year-old female. Evaluate for foreign body. COMPARISON: None. [facility] CONSOLIDATED Mike Villavicencio M D - 06/25/2022 [...] consistent with the patient's history of neuropathy. 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 Clinical follow up recommended. Subcentimeter highly suspicious nodule in the right thyroid lobe 7 mm in greatest dimension. This meets criteria for annual follow up for 5 years. It does not meet criteria for FNA. [facility] CONSOLIDATED EXAM: US HEAD NECK SOFT TISSUE [...] fat without shadowing, suggestive of a lipoma. [facility]IS CONSOLIDATED Micky Lauren Jr., MD [...] It does not meet criteria for FNA. [employer] Phone: Radiology Study observation (narrative) [facility] [employer] Work Phone: US HEAD NECK SOFT TISSUE THY ROIDOrdered By: Micky Lauren on 05-27-2022 [facility] [employer] Work Phone: Rejection Notificationon Reason see below [facility] Comment on above: Result Comment: Unab le to perform testing; no specimen received. To perform testing the specimen will need to be recollected. No spec Performed By: #### R EJEC #### [facility] [address] [facility] [address] Rejected Test CXURN Normal [facility] Comment on above: Performed By: #### R EJEC #### [facility] [address] [facility] [address] LDL Cholesterol, Directon Cholesterol in LDL [Mass/Vol] 84 mg/dL <100 [facility] CBC with Auto Differentialon 04-12-2022 Absolute Eos # 0.10 [facility] Absolute Lymph # 1.40 [facility] Absolute [place] # 0.30 [facility] RS [facility] Basophils (Bld) [#/Vol] 0.00 10*3/uL [facility] Basophils/100 WBC (Bld) 1 % 0 - 2 % [facility] Differential Type YES [facility] Eosinophils/100 WBC (Bld) 1 % 0 - 5 % [facility] Hematocrit (Bld) [Volume fraction] 35.7 % Low 36 - 46 % [facility] Hemoglobin (Bld) [Mass/Vol] 12.0 g/dL 12.0 - 16.0 g/dL [facility] Interpretation and review of laboratory results Abnormal [facility] Lymphocytes/100 WBC (Bld) 25 % 15 - 40 % [facility] MCH (RBC) [Entitic mass] 28.0 pg 26 - 34 pg [facility] MCHC (RBC) [Mass/Vol] 33.7 g/dL 31 - 37 g/dL [facility] MCV (RBC) [Entitic vol] 83.3 fL 80 - 100 fL [facility] Monocytes/100 WBC (Bld) 5 % 4 - 8 % [facility] Platelet distribution width (Bld) [Ratio] 16.4 % High 12.1 - 15.2 % [facility] Platelets (Bld) [#/Vol] 168 10*3/uL [facility] RBC (Bld) [#/Vol] 4.29 10*6/uL 4.0 - 5.2 m/uL [facility] Segmented neutrophils/100 WBC (Bld) 68 % 47 - 75 % [facility] Segs Absolute 3.90 [facility] WBC (Bld) [#/Vol] 5.7 10*3/uL [facility] Comprehensive Metabolic Pane lyn 04-12-2022 Albumin [Mass/Vol] 4.2 g/dL 3.5 - 5.2 g/dL [facility] ALP (Bld) [Catalytic activity/Vol] 88 U/L 35 - 104 U/L [facility] ALT [Catalytic activity/Vol] 29 U/L 5 - 33 U/L [facility] Anion gap [Moles/Vol] 11 mmol/L 9 - 17 mmol/L [facility] AST [Catalytic activity/Vol] 27 U/L <32 [facility] Bilirubin [Mass/Vol] 0.65 mg/dL 0.30 - 1.20 mg/dL [facility] Calcium [Mass/Vol] 9.1 mg/dL 8.6 - 10. 4 mg/dL [facility] Chloride [Moles/Vol] 101 mmol/L 98 - 10 7 mmol/L [facility] CO2 [Moles/Vol] 28 mmol/L 20 - 31 mmol/L [facility] Creatinine [Mass/Vol] 1.04 mg/dL High 0.50 - 0.90 mg/dL [facility] Free PSA/Total PSA [Mass fraction] 6.8 g/dL 6.4 - 8.3 g/dL [facility] GFR >60 >60 mL/min [facility] GFR Non- 58 mL/min Low >60 [facility] GFR/1.73 sq M.predicted MDRD (S/P/Bld) [Vol rate/Area] [facility] Comment on above: Average GFR for 40-4 9 years old: 99 mL/min/1.73sq m Chronic Kidney Disease: <60 mL/min/1.73sq m Kidney failure: <15 mL/min/1.73sq m eGFR calculated using average adult body mass. Additional eGFR calculator available at: http://www.Sabesim/multiple_crcl_2012.htm Glucose [Mass/Vol] 103 mg/dL High 70 - 99 mg/dL [facility] Interpretation and review of laboratory results Abnormal [facility] Potassium [Moles/Vol] 3.9 mmol/L 3.7 - 5.3 mmol/L [facility] Sodium [Moles/Vol] 140 mmol/L 135 - 144 mmol/L [facility] Urea nitrogen (BldV) [Mass/Vol] 13 mg/dL 6 - 20 mg/dL [facility] Urea nitrogen/Creatinine (Bld) [Mass ratio] 13 [facility] HIV Screenon 04-12-2022 HIV Ag/Ab Non-Reactive NONREACTIVE [facility] Comment on above: No laboratory eviden ce of HIV infection. If acute HIV infection is suspected, consider testing for HIV-1 RNA. [facility] Lipid Panelon 04-12-2022 Cholesterol [Mass/Vol] 184 mg/dL <200 [facility]ITALBasho TechnologiesK[facility] Comment on above: Cholesterol Guidelines: <200 Desirable 200-240 Borderline >240 Undesirable Cholesterol in HDL [Mass/Vol] 30 mg/dL Low >40 [facility] Comment on above: HDL Guidelines: <40 Undesirable 40-59 Borderline >59 Desirable Cholesterol.total/Cho lesterol in HDL [Mass ratio] 6.1 {ratio} High <5 [facility]ITALFeedgen [facility]ITALMetooo [facility] Interpretation and review of laboratory results Abnormal [facility] [employer] GmbHKETTERING HEALTH PREBLE LDL Cholesterol 0 - 130 mg/dL [facility] Comment on above: Calculation not jacqueline d for Triglyceride value greater than 400 mg/dL. Direct LDL reflexed LDL Guidelines: <100 Desirable 100-129 Near to/above Desirable 130-159 Borderline >159 Undesirable Direct (measured) LDL and calculated LDL are not interchangeable tests. Triglyceride [Mass/Vol] 460 mg/dL High <150 [employer] Comment on above: Triglyceride Guidelines: <150 Desirable 150-199 Borderline 200-499 High >499 Very high Based on AHA Guidelines for fasting triglyceride, July 2012. [facility] No Panel Informationon 04-12 [facility] TSH with Reflexon 04-12-2022 TSH Qn 0.99 m[IU]/L [facility] XR pre/post mri xrayon 02-04 XR pre/post mri xray [facility] [place] [address] [place] [address] MRI Report Signed Patient: Celina Gaspar MR#: [id number] 90 : 1980 Acct:[id number] Age/Sex: 41 / F ADM Date: 02/04/22 Loc: [facility] Room: Type: [facility] Attending Dr: Tiffanie Casas MD Ordering Provider: Tiffanie Casas MD Date of Service: 02/04/22 MR/MR lumbar spine wo con: M54.16, M79.10, M79.609, R20.9 ([id number]) XR/XR pre/post mri xray: M54.16, M79.10, M79.609, [...] Nash Doyle M.D.02/04/2022 11:43 AM Dictation Location: [place] [address] Transcribed By: [facility] 02/04/22 1143 Dictated By: Nash Doyle II, MD 02/04/22 1136 Signed By: 02/04/22 1143 [facility] Urinalysis with MicroscopicO rdered By: Lita Weeks on 08-01-2021 - [employer] Work Phone: Amorphous, UA NOT REPORTED None [employer] Work Phone: Bacteria, UA RARE Abnormal None [employer] Work Phone: Bilirubin Urine Negative NEGATIVE [employer] Work Phone: Casts UA NOT REPORTED /LPF [employer] Work Phone: Color, UA Yellow Yellow [employer] Work Phone: Crystals, UA NOT REPORTED None /HPF [employer] [facility] Work Phone: Epithelial Cells UA 2 TO 5 /HPF [employer] Work Phone: Glucose, Ur Negative NEGATIVE [employer] Work Phone: Interpretation and review of laboratory results Abnormal [facility] Work Phone: Ketones Ql (U) Negative NEGATIVE [facility] Hospital[facility] Work Phone: Leukocyte esterase Test strip Ql (U) Negative NEGATIVE [facility] [employer] Work Phone: Mucus, UA NOT REPORTED None [facility] Work Phone: Nitrite, Urine Negative NEGATIVE [facility] Work Phone: Other Observations UA NOT REPORTED NOT REQ. [facility] [employer] Work Phone: pH, UA 6.0 [facility] [employer] Work Phone: Protein, UA Negative NEGATIVE [facility] [employer] Work Phone: RBC, UA NOT REPORTED [facility] [employer] Phone: Renal Epithelial, UA NOT REPORTED 0 /HPF Me [facility] [employer] Work Phone: Specific [place], UA 1.020 [facility] [employer] Work Phone: Trichomonas, UA NOT REPORTED None [facility] Hospital[facility] Work Phone: Turbidity UA Clear Clear [facility] Work Phone: Urinalysis Comments [facility] Work Phone: Urine Hgb Negative NEGATIVE [facility] HospitalDale[facility] Phone: Urobilinogen, Urine Normal Normal [facility] [employer] Phone: WBC, UA NOT REPORTED 0 /HPF [facility] Work Phone: Yeast, UA NOT REPORTED None [facility] Hospital[facility] Phone: [facility] Work Phone: Urinalysis with MicroscopicO rdered By: Lita Weeks on 07-11-2021 - [facility] Work Phone: Amorphous, UA NOT REPORTED None [employer] [facility] Work Phone: Bacteria, UA 3+ Abnormal None [facility] Work Phone: Bilirubin Urine Negative NEGATIVE [facility] Hea lth Work Phone: Casts UA NOT REPORTED /LPF [facility] Work Phone: Color, UA Yellow Yellow [facility] Work Phone: Crystals, UA NOT REPORTED None /HPF [facility] Work Phone: Epithelial Cells UA 2 TO 5 /HPF [facility] Work Phone: Glucose, Ur Negative NEGATIVE [facility] [employer] Work Phone: Interpretation and review of laboratory results Abnormal [facility] Work Phone: Ketones Ql (U) Negative NEGATIVE [facility] Work Phone: Leukocyte esterase Test strip Ql (U) 2+ Abnormal NEGATIVE [facility] [employer] Work Phone: Mucus, UA NOT REPORTED None [facility] [employer] Work Phone: Nitrite, Urine Positive Abnormal NEGATIVE [facility] Work Phone: Other Observations UA NOT REPORTED NOT REQ. [facility] [employer] Work Phone: pH, UA 6.0 [facility] [employer] Work Phone: Protein, UA Negative NEGATIVE [facility] [employer] Work Phone: RBC, UA NOT REPORTED [facility] Health Work Phone: Renal Epithelial, UA NOT REPORTED 0 /HPF Me [facility] Health Work Phone: Specific [place], UA 1.025 [facility] Work Phone: Trichomonas, UA NOT REPORTED None [facility] H ealth Work Phone: Turbidity UA Hazy Abnormal Clear [facility] [employer] Work Phone: Urinalysis Comments [facility] Work Phone: Urine Hgb Negative NEGATIVE [facility] Work Phone: Urobilinogen, Urine Normal Normal [employer] Phone: WBC, UA 20 TO 50 0 /HPF [employer] Phone: Yeast, UA NOT REPORTED None [employer] Phone: [employer] Phone: AlbuminOrdered By: Gregory stevens on 05-20-2021 Albumin [Mass/Vol] 4.2 g/dL 3.5 - 5.2 g/dL [employer] Phone: BUN & CreatinineOrdered By: Gregory Forbes on 05-20-2021 Creatinine [Mass/Vol] 1.18 mg/dL High 0.50 - 0.90 mg/dL [employer] Phone: GFR >60 >60 mL/min [employer] Phone: GFR Non- 50 mL/min Low >60 [employer] Phone: GFR/1.73 sq M.predicted MDRD (S/P/Bld) [Vol rate/Area] [employer] Phone: Comment on above: Average GFR for 40-4 9 years old: 99 mL/min/1.73sq m Chronic Kidney Disease: <60 mL/min/1.73sq m Kidney failure: <15 mL/min/1.73sq m eGFR calculated using average adult body mass. Additional eGFR calculator available at: http://www.We R Interactive.S[employer] Systems/multiple_crcl_2012.htm GFR/1.73 sq M.predicted MDRD (S/P/Bld) [Vol rate/Area] NOT REPORTED [employer] Phone: Interpretation and review of laboratory results Abnormal [employer] Phone: Urea nitrogen (BldV) [Mass/Vol] 19 mg/dL 6 - 20 mg/dL [employer] Phone: CalciumOrdered By: Gregory stevens on 05-20-2021 Calcium [Mass/Vol] 9.2 mg/dL 8.6 - 10. 4 mg/dL [facility] Phone: Electrolyte PanelOrdered By: Gregory Forbes on 05-20-2021 Anion gap [Moles/Vol] 10 mmol/L 9 - 17 mmol/L [facility] Phone: Chloride [Moles/Vol] 103 mmol/L 98 - 10 7 mmol/L [facility] Work Phone: CO2 [Moles/Vol] 25 mmol/L 20 - 31 mmol/L [facility] Phone: Potassium [Moles/Vol] 4.2 mmol/L 3.7 - 5.3 mmol/L [facility] Phone: Sodium [Moles/Vol] 138 mmol/L 135 - 144 mmol/L [facility] Phone: MagnesiumOrdered By: Gregory high on 05-20-2021 Magnesium [Mass/Vol] 2.2 mg/dL 1.6 - 2 .6 mg/dL [facility] Phone: No Panel InformationOrdered By: Gregory Forbes on 05-20-2021 [facility] Phone: PhosphorusOrdered By: Gregory Forbes on 05-20-2021 Phosphate [Mass/Vol] 3.7 mg/dL 2.6 - 4 .5 mg/dL [facility] Phone: UrinalysisOrdered By: Gregory Forbes on 05-20-2021 Bilirubin Urine Negative NEGATIVE [facility] HospitalPlanet Payment [facility] Work Phone: Color, UA YELLOW YELLOW [facility] HospitalF[facility] Work Phone: Glucose, Ur Negative NEGATIVE [facility] HospitalDale[facility] Phone: Interpretation and review of laboratory results [facility]normal [facility] Phone: Ketones Ql (U) Negative NEGATIVE [employer] Work Phone: Leukocyte esterase Test strip Ql (U) Negative NEGATIVE [employer] Phone: Nitrite, Urine Negative NEGATIVE [employer] Work Phone: pH, UA 5.0 [employer] Phone: Protein, UA TRACE Abnormal NEGATIVE [employer] Phone: Specific [place], UA 1.020 [employer] Work Phone: Turbidity UA CLEAR CLEAR [employer] Work Phone: Urinalysis Comments [employer] Phone: Urine Hgb Negative NEGATIVE [employer] Phone: Urobilinogen, Urine Normal Normal [employer] Phone: [employer] Phone: COVID-19Ordered By: Pattie smith on 01-22-2021 SARS-CoV-2 (COVID-19) RNA SHARMIN+probe Ql (Unsp spec) [employer] Phone: SARS-CoV-2 (COVID-19) RNA SHARMIN+probe Ql (Unsp spec) Not detected Not Detected [employer] Phone: Comment on above: The specimen is NEGATIVE for SARS-CoV-2, the novel coronavirus associated with COVID-19. A negative result does not rule out COVID-19. Twin SARS-CoV-2 for use on the Twin Munetrix0/8800 Systems is a real-time RT-PCR test intended [...] this assay. Fact sheet for Healthcare Providers: https://www.[employer].gov/media/733622/download Fact sheet for Patients: https://www.[employer].gov/media/934119/download METHODOLOGY: RT-PCR Source .THROAT [facility] [employer] Phone: COVID-19, PCRon 11-15-2020 SARS-CoV-2, Rapid Not Detected Not Detected [facility] [employer] Phone: Comment on above: Rapid NAAT: The specimen is NEGATIVE for SARS-CoV-2, the novel coronavirus associated with COVID-19. The [employer] NOW COVID-19 assay is designed to detect [...] management decisions. Fact sheet for Healthcare Providers: https://www.[employer].gov/media/260663/download Fact sheet for Patients: https://www.fda.gov/media/226192/download Methodology: Isothermal Nucleic Acid Amplification Source .THROAT [facility] [employer] Phone: Otheron 11-15-2020 SARS-CoV-2 [facility] [employer] Phone: CBC Auto Differentialon - Basophils (Bld) [#/Vol] 0.10 10*3/uL [facility], [place] Basophils/100 WBC (Bld) 1 % 0 - 2 % [facility], [place] Differential Type YES [facility] [employer], [place] Eosinophils (Bld) [#/Vol] 0.10 10*3/uL [place] Eosinophils/100 WBC (Bld) 1 % 0 - 5 % [place] Erythrocyte distribution width (RBC) [Ratio] 16.3 % High 12.1 - 15.2 % [place] Hematocrit (Bld) [Volume fraction] 36.5 % 36 - 46 % [place] Hemoglobin (Bld) [Mass/Vol] 12.5 g/dL 12 - 16 g/dL [place] Interpretation and review of laboratory results Abnormal [place] Lymphocytes (Bld) [#/Vol] 1.90 10*3/uL [place] Lymphocytes/100 WBC (Bld) 25 % 15 - 40 % [place] MCH (RBC) [Entitic mass] 28.8 pg 26 - 34 pg [place] MCHC (RBC) [Mass/Vol] 34.3 g/dL 31 - 37 g/dL [place] MCV (RBC) [Entitic vol] 84.0 fL 80 - 100 fL [place] Monocytes (Bld) [#/Vol] 0.40 10*3/uL [place] Monocytes/100 WBC (Bld) 5 % 4 - 8 % [place] Platelet mean volume (Bld) [Entitic vol] NOT REPORTED 6 - 12 fL [place] Platelets (Bld) [#/Vol] 167 10*3/uL [place] Platelets (Bld) [#/Vol] NOT REPORTED [place] RBC (Bld) [#/Vol] 4.35 10*6/uL 4 - 5.2 m/uL [place], [place] RBC morphology finding Nom (Bld) NOT REPORTED [place] Segmented neutrophils/100 WBC (Bld) 68 % 47 - 75 % [place] Segs Absolute 5.40 [place] WBC (Bld) [#/Vol] 7.8 10*3/uL [place] WBC (Bld) [#/Vol] NOT REPORTED per 100 WBC [place] WBC Morphology NOT REPORTED [place], [place] Comprehensive Metabolic Pane l w/ Reflex to MGon 09-16-2020 Albumin [Mass/Vol] 4.4 g/dL 3.5 - 5.2 g/dL [place] Albumin/Globulin [Mass ratio] NOT REPORTED [place] ALP [Catalytic activity/Vol] 117 U/L High 35 - 104 U/L [place] ALT [Catalytic activity/Vol] 41 U/L High 5 - 33 U/L [place] Anion gap [Moles/Vol] 10 mmol/L 9 - 17 mmol/L [place] AST [Catalytic activity/Vol] 39 U/L High <32 [place] Bilirubin Ql (U) 0.52 mg/dL 0.3 - 1.2 mg/dL [place] Bun/Cre Ratio 11 [place], [place] Calcium [Mass/Vol] 9.0 mg/dL 8.6 - 10. 4 mg/dL [place] Chloride [Moles/Vol] 101 mmol/L 98 - 10 7 mmol/L [place] CO2 [Moles/Vol] 26 mmol/L 20 - 31 mmol/L [place] Creatinine [Mass/Vol] 1.32 mg/dL High 0.5 - 0.9 mg/dL [place] GFR 54 mL/min Low >60 [place] GFR Non- 44 mL/min Low >60 [place] GFR/1.73 sq M predicted among non-blacks MDRD (S/P/Bld) [Vol rate/Area] [place], [place] Comment on above: Average GFR for 40-4 9 years old: 99 mL/min/1.73sq m Chronic Kidney Disease: <60 mL/min/1.73sq m Kidney failure: <15 mL/min/1.73sq m eGFR calculated using average adult body mass. Additional eGFR calculator available at: http://www.[employer]ab[employer]im/multiple_crcl_2012.htm GFR/1.73 sq M predicted among non-blacks MDRD (S/P/Bld) [Vol rate/Area] NOT REPORTED [place] Glucose [Mass/Vol] 173 mg/dL High 70 - 99 mg/dL [place], [place] Interpretation and review of laboratory results Abnormal [place], [place] Potassium [Moles/Vol] 3.9 mmol/L 3.7 - 5.3 mmol/L [place] Protein [Mass/Vol] 7.3 g/dL 6.4 - 8.3 g/dL [place] Sodium [Moles/Vol] 137 mmol/L 135 - 144 mmol/L [place], [place] Urea nitrogen [Mass/Vol] 15 mg/dL 6 - 20 mg/dL [place] Otheron 09-16-2020 Immature granulocytes (Bld) [#/Vol] NOT REPORTED [place] Sedimentation Rateon 020 Sed Rate 15 mm 0 - 20 mm [place] Urinalysis, reflex to micros copicon 09-16-2020 Bilirubin Urine Negative NEGATIVE [place], [place] Color, UA YELLOW YELLOW [place] Glucose, Ur Negative NEGATIVE [place] Interpretation and review of laboratory results Abnormal [place] Ketones Ql (U) Negative NEGATIVE [place] Leukocyte esterase Test strip Ql (U) Negative NEGATIVE [place] Nitrite, Urine Negative NEGATIVE [place] pH, UA 5.0 [place], [place] Protein (U) [Mass/Vol] TRACE Abnormal NEGATIVE [place] Specific [place], UA 1.025 [place], [place] Turbidity UA CLEAR CLEAR [place] Urinalysis Comments [place] Urine Hgb Negative NEGATIVE [place] Urobilinogen, Urine Normal Normal [place], [place] C-Reactive Proteinon 020 CRP [Mass/Vol] 6 mg/L High 0 - 5 mg/L [place], [place] Interpretation and review of laboratory results Abnormal [place], [place] CBC With Auto Differentialon 08-24-2020 Basophils (Bld) [#/Vol] 0.00 10*3/uL [place] Basophils/100 WBC (Bld) 1 % 0 - 2 % [place], [place] Differential Type YES [place] Eosinophils (Bld) [#/Vol] 0.10 10*3/uL [place] Eosinophils/100 WBC (Bld) 1 % 0 - 5 % [place] Erythrocyte distribution width (RBC) [Ratio] 16.2 % High 12.1 - 15.2 % [place] Hematocrit (Bld) [Volume fraction] 35.4 % Low 36 - 46 % [place] Hemoglobin (Bld) [Mass/Vol] 12.2 g/dL 12 - 16 g/dL [place] Interpretation and review of laboratory results Abnormal [place] Lymphocytes (Bld) [#/Vol] 1.60 10*3/uL [place] Lymphocytes/100 WBC (Bld) 28 % 15 - 40 % [place] MCH (RBC) [Entitic mass] 29.1 pg 26 - 34 pg [place] MCHC (RBC) [Mass/Vol] 34.5 g/dL 31 - 37 g/dL [place] MCV (RBC) [Entitic vol] 84.2 fL 80 - 100 fL [place], [place] Monocytes (Bld) [#/Vol] 0.40 10*3/uL [place] Monocytes/100 WBC (Bld) 6 % 4 - 8 % [place] Platelet mean volume (Bld) [Entitic vol] NOT REPORTED 6 - 12 fL [place] Platelets (Bld) [#/Vol] 160 10*3/uL [place] Platelets (Bld) [#/Vol] NOT REPORTED [place] RBC (Bld) [#/Vol] 4.20 10*6/uL 4 - 5.2 m/uL [place], [place] RBC morphology finding Nom (Bld) NOT REPORTED [place] Segmented neutrophils/100 WBC (Bld) 64 % 47 - 75 % [place] Segs Absolute 3.80 [place] WBC (Bld) [#/Vol] 5.8 10*3/uL [place] WBC (Bld) [#/Vol] NOT REPORTED per 100 WBC [place] WBC Morphology NOT REPORTED [place], [place] Otheron 08-24-2020 Immature granulocytes (Bld) [#/Vol] NOT REPORTED 0 % [place], [place] Sedimentation Rateon 020 Sed Rate 10 mm 0 - 20 mm [place] C-Reactive Proteinon 020 CRP [Mass/Vol] 2 mg/L 0 - 5 mg/L [place], [place] CBC With Auto Differentialon 07-24-2020 Basophils (Bld) [#/Vol] 0.10 10*3/uL [place] Basophils/100 WBC (Bld) 1 % 0 - 2 % [place], [place] Differential Type YES [place] Eosinophils (Bld) [#/Vol] 0.10 10*3/uL [place] Eosinophils/100 WBC (Bld) 1 % 0 - 5 % [place] Erythrocyte distribution width (RBC) [Ratio] 16.8 % High 12.1 - 15.2 % [place] Hematocrit (Bld) [Volume fraction] 40.0 % 36 - 46 % [place] Hemoglobin (Bld) [Mass/Vol] 13.5 g/dL 12 - 16 g/dL [place] Interpretation and review of laboratory results Abnormal [place] Lymphocytes (Bld) [#/Vol] 1.70 10*3/uL [place] Lymphocytes/100 WBC (Bld) 17 % 15 - 40 % [place] MCH (RBC) [Entitic mass] 29.1 pg 26 - 34 pg [place] MCHC (RBC) [Mass/Vol] 33.8 g/dL 31 - 37 g/dL [place] MCV (RBC) [Entitic vol] 86.0 fL 80 - 100 fL [place], [place] Monocytes (Bld) [#/Vol] 0.50 10*3/uL [place], [place] Monocytes/100 WBC (Bld) 5 % 4 - 8 % [place] Platelet mean volume (Bld) [Entitic vol] NOT REPORTED 6 - 12 fL [place], [place] Platelets (Bld) [#/Vol] NOT REPORTED [place] Platelets (Bld) [#/Vol] 208 10*3/uL [place] RBC (Bld) [#/Vol] 4.65 10*6/uL 4 - 5.2 m/uL [place], [place] RBC morphology finding Nom (Bld) NOT REPORTED [place] Segmented neutrophils/100 WBC (Bld) 76 % High 47 - 75 % [place] Segs Absolute 7.70 High [place] WBC (Bld) [#/Vol] NOT REPORTED per 100 WBC [place] WBC (Bld) [#/Vol] 10.0 10*3/uL [place] WBC Morphology NOT REPORTED [place], [place] Otheron 07-24-2020 Immature granulocytes (Bld) [#/Vol] NOT REPORTED 0 % [place], [place] Sedimentation Rateon 020 Sed Rate 6 mm 0 - 20 mm [place] Protein / creatinine ratio, urineon 06-07-2020 Creatinine, Ur 101.2 mg/dL 28 - 217 mg/dL [place] Protein (U) [Mass/Vol] 8 mg/dL [place], [place] Comment on above: No normal range esta blished. Urine Total Protein Creatinine Ratio 0.08 [place] Urinalysison 06-07-2020 Bilirubin Urine Negative NEGATIVE [place], [place] Color, UA YELLOW YELLOW [place], [place] Glucose, Ur 100 mg/dL Abnormal NEGATIVE [place] Interpretation and review of laboratory results Abnormal [place] Ketones Ql (U) Negative NEGATIVE [place] Leukocyte esterase Test strip Ql (U) Negative NEGATIVE [place] Nitrite, Urine Negative NEGATIVE [place] pH, UA 6.0 [place], [place] Protein (U) [Mass/Vol] Negative NEGATIVE [place] Specific [place], UA 1.020 [place], [place] Turbidity UA CLEAR CLEAR [place] Urinalysis Comments [place] Urine Hgb Negative NEGATIVE [place] Urobilinogen, Urine Normal Normal [place] Comprehensive Metabolic Pane lyn 05-25-2020 Albumin [Mass/Vol] 4.4 g/dL 3.5 - 5.2 g/dL [place] Albumin/Globulin [Mass ratio] NOT REPORTED [place] ALP [Catalytic activity/Vol] 87 U/L 35 - 104 U/L [place] ALT [Catalytic activity/Vol] 21 U/L 5 - 33 U/L [place] Anion gap [Moles/Vol] 10 mmol/L 9 - 17 mmol/L [place] AST [Catalytic activity/Vol] 22 U/L <32 [place] Bilirubin Ql (U) 0.32 mg/dL 0.3 - 1.2 mg/dL [place] Bun/Cre Ratio 18 [place], [place] Calcium [Mass/Vol] 10.1 mg/dL 8.6 - 10. 4 mg/dL [place] Chloride [Moles/Vol] 104 mmol/L 98 - 10 7 mmol/L [place] CO2 [Moles/Vol] 26 mmol/L 20 - 31 mmol/L [place] Creatinine [Mass/Vol] 1.37 mg/dL High 0.5 - 0.9 mg/dL [place] GFR 52 mL/min Low >60 [place] GFR Non- 43 mL/min Low >60 [place] GFR/1.73 sq M predicted among non-blacks MDRD (S/P/Bld) [Vol rate/Area] NOT REPORTED [place] GFR/1.73 sq M predicted among non-blacks MDRD (S/P/Bld) [Vol rate/Area] [place] Comment on above: Average GFR for 40-4 9 years old: 99 mL/min/1.73sq m Chronic Kidney Disease: <60 mL/min/1.73sq m Kidney failure: <15 mL/min/1.73sq m eGFR calculated using average adult body mass. Additional eGFR calculator available at: http://www.Sab[employer]im/multiple_crcl_2012.htm Glucose [Mass/Vol] 160 mg/dL High 70 - 99 mg/dL [place], [place] Interpretation and review of laboratory results Abnormal [place] Potassium [Moles/Vol] 4.6 mmol/L 3.7 - 5.3 mmol/L [place] Protein [Mass/Vol] 7.4 g/dL 6.4 - 8.3 g/dL [place] Sodium [Moles/Vol] 140 mmol/L 135 - 144 mmol/L [place] Urea nitrogen [Mass/Vol] 24 mg/dL High 6 - 20 mg/dL [place] Hemoglobin A1Con 05-25-2020 Glucose [Mass/Vol] 123 mg/dL [place], [place] Comment on above: The ADA and AACC rec ommend providing the estimated average glucose result to permit better patient understanding of their HBA1c result. HbA1c (Bld) [Mass fraction] 5.9 % 4 - 6 % [place] LDL Cholesterol, Directon Cholesterol in LDL [Mass/Vol] 58 mg/dL <100 [place] Lipid Panelon 05-25-2020 Cholesterol [Mass/Vol] 194 mg/dL <200 [place], [place] Comment on above: Cholesterol Guidelines: <200 Desirable 200-240 Borderline >240 Undesirable Cholesterol in HDL [Mass/Vol] 27 mg/dL Low >40 [place], [place] Comment on above: HDL Guidelines: <40 Undesirable 40-59 Borderline >59 Desirable Cholesterol in LDL [Mass/Vol] 0 - 130 mg/dL [place] Comment on above: Calculation not jacqueline d for Triglyceride value greater than 400 mg/dL. Direct LDL reflexed LDL Guidelines: <100 Desirable 100-129 Near to/above Desirable 130-159 Borderline >159 Undesirable Direct (measured) LDL and calculated LDL are not interchangeable tests. Cholesterol in VLDL [Mass/Vol] NOT REPORTED 1 - 30 mg/dL [place] Cholesterol.total/Cho lesterol in HDL [Mass ratio] 7.2 {ratio} High <5 [place] Interpretation and review of laboratory results Abnormal [place] Triglyceride [Mass/Vol] 1112 mg/dL High <150 [place], [place] Comment on above: Triglyceride Guidelines: <150 Desirable 150-199 Borderline 200-499 High >499 Very high Based on AHA Guidelines for fasting triglyceride, July 2012. Patient Fasting?on 0 Patient Fasting? YES [place], [place] Vitamin D 25 Hydroxyon 05-25 Vit D, 25-Hydroxy 30.2 ng/mL 30 - 100 ng/mL [place] Comment on above: Reference Range: Vitamin D status Range Deficiency <20 ng/mL Mild Deficiency 20-30 ng/mL Sufficiency 30-100 ng/mL Toxicity >100 ng/mL C-Reactive Proteinon 020 CRP [Mass/Vol] 6.2 mg/L High 0 - 5 mg/L [place] Interpretation and review of laboratory results Abnormal [place] Hemoglobin [id number] By: Kevin Allen on 09-24-2019 Glucose [Mass/Vol] 108 mg/dL [facility] [employer] Phone: Comment on above: The ADA and AACC rec ommend providing the estimated average glucose result to permit better patient understanding of their HBA1c result. HbA1c (Bld) [Mass fraction] 5.4 % 4.8 - 5.9 % [employer] Phone: Homocysteine, SerumOrdered B y: Janel Allen on 09-24-2019 Homocysteine 9 umol/L <15.0 [employer] Phone: TSH without ReflexOrdered By : Janel Allen on 09-24-2019 TSH Qn 1.03 m[IU]/L [facility] Phone: Vitamin B12 & FolateOrdered By: Janel Allen on 09-24-2019 Cobalamin (Vitamin B12) [Mass/Vol] 292 pg/mL 232 - 1245 pg/mL [employer] Work Phone: Folate 13.8 ng/mL >4.8 [employer] Phone: XR CERVICAL SPINE (4-5 VIEWS )on 07-29-2019 Mild degenerative changes cervical spine not unusual for age. Refer to the [facility] Imaging services 02/03/2019 with some of the findings discussed above. [place] EXAM: XR CERVICAL SPINE (4-5 VIEWS) HISTORY: Reason for exam:->history MRSA discitis of thoracic region. New tingling and numbness of fingers COMPARISON: MRI cervical spine [facility] 02/03/2019, cervical spine series 04/03/2010. The [...] Swimmer's lateral view shows no additional abnormality. [place], [place] Lior, pn Incoming Radiant Results From [facility] - 07/29/2019 10:05 AM EDT EXAM: XR CERVICAL SPINE (4-5 VIEWS) HISTORY: Reason for exam:->history MRSA discitis of thoracic region. New tingling and numbness of fingers COMPARISON: MRI cervical spine [facility] 02/03/2019, cervical spine series 04/03/2010. The [...] not unusual for age. Refer to the [facility] Imaging services 02/03/2019 with some of the findings discussed above. [place] C-Reactive ProteinOrdered By : Azalea Knight on 07-28-2019 CRP [Mass/Vol] 6.4 mg/L High 0 - 5 mg/L [place] Interpretation and review of laboratory results Abnormal [place] CBC With Auto DifferentialOr dered By: Azalea Knight on 07-28-2019 Absolute Eos # 0.10 [place], [place] Absolute Immature Granulocyte NOT REPORTED [place] Absolute Lymph # 2.10 [place], [place] Absolute [place] # 0.50 [place], [place] Basophils (Bld) [#/Vol] 0.00 10*3/uL [place] Basophils/100 WBC (Bld) 1 % 0 - 2 % [place], [place] Differential Type YES [place] Eosinophils/100 WBC (Bld) 1 % 0 - 5 % [place] Erythrocyte distribution width (RBC) [Ratio] 14.5 % 12.1 - 15.2 % [place] Hematocrit (Bld) [Volume fraction] 38.1 % 36 - 46 % [place] Hemoglobin (Bld) [Mass/Vol] 12.9 g/dL 12 - 16 g/dL [place] Immature Granulocytes NOT REPORTED 0 % [place] Lymphocytes/100 WBC (Bld) 34 % 15 - 40 % [place] MCH (RBC) [Entitic mass] 29.5 pg 26 - 34 pg [place] MCHC (RBC) [Mass/Vol] 33.9 g/dL 31 - 37 g/dL [place] MCV (RBC) [Entitic vol] 87.1 fL 80 - 100 fL [place] Monocytes/100 WBC (Bld) 8 % 4 - 8 % [place] MPV NOT REPORTED 6 - 12 fL [place] NRBC Automated NOT REPORTED per 100 WBC [place] Platelet Estimate NOT REPORTED [place] Platelets (Bld) [#/Vol] 222 10*3/uL [place] RBC (Bld) [#/Vol] 4.38 10*6/uL 4 - 5.2 m/uL [place], [place] RBC morphology finding Nom (Bld) NOT REPORTED [place] Segmented neutrophils/100 WBC (Bld) 56 % 47 - 75 % [place] Segs Absolute 3.50 [place] WBC (Bld) [#/Vol] 6.2 10*3/uL [place] WBC Morphology NOT REPORTED [place], [place] Sedimentation RateOrdered By : Azalea Knight on 07-28-2019 Sed Rate 19 mm 0 - 30 mm [place] C-Reactive Proteinon 019 CRP [Mass/Vol] 7.3 mg/L High 0 - 5 mg/L [place] Interpretation and review of laboratory results Abnormal [place] Albuminon 06-17-2019 Albumin [Mass/Vol] 4.3 g/dL 3.5 - 5.2 g/dL [place] BUN & Creatinineon 9 Creatinine [Mass/Vol] 1.27 mg/dL High 0.5 - 0.9 mg/dL [place] GFR 56 mL/min Low >60 [place] GFR Non- 47 mL/min Low >60 [place] GFR/1.73 sq M predicted among non-blacks MDRD (S/P/Bld) [Vol rate/Area] NOT REPORTED [place] GFR/1.73 sq M predicted among non-blacks MDRD (S/P/Bld) [Vol rate/Area] [place] Comment on above: Average GFR for 40-4 9 years old: 99 mL/min/1.73sq m Chronic Kidney Disease: <60 mL/min/1.73sq m Kidney failure: <15 mL/min/1.73sq m eGFR calculated using average adult body mass. Additional eGFR calculator available at: http://www.[employer] Systems/multiple_crcl_2011.htm Interpretation and review of laboratory results Abnormal [place] Urea nitrogen [Mass/Vol] 18 mg/dL 6 - 20 mg/dL [place] Calciumon 06-17-2019 Calcium [Mass/Vol] 10.4 mg/dL 8.6 - 10. 4 mg/dL [place] Electrolyte Panelon 06-17-20 19 Anion gap [Moles/Vol] 13 mmol/L 9 - 17 mmol/L [place] Chloride [Moles/Vol] 103 mmol/L 98 - 10 7 mmol/L [place] CO2 [Moles/Vol] 24 mmol/L 20 - 31 mmol/L [place] Potassium [Moles/Vol] 3.8 mmol/L 3.7 - 5.3 mmol/L [place] Sodium [Moles/Vol] 140 mmol/L 135 - 144 mmol/L [place] Hemoglobin and Hematocrit, B loodon 06-17-2019 Hematocrit (Bld) [Volume fraction] 35.4 % Low 36 - 46 % [place] Hemoglobin (Bld) [Mass/Vol] 12.1 g/dL 12 - 16 g/dL [place] Interpretation and review of laboratory results Abnormal [place] Magnesiumon 06-17-2019 Magnesium [Mass/Vol] 2.3 mg/dL 1.6 - 2 .6 mg/dL [place] Microscopic Urinalysison Amorphous, UA NOT REPORTED None [place], [place] Bacteria, UA 1+ Abnormal None [place] Casts UA NOT REPORTED /LPF [place] Crystals UA NOT REPORTED None /HPF [place] Epithelial Cells UA 2 TO 5 /HPF [place] Interpretation and review of laboratory results Abnormal [place] Mucus, UA NOT REPORTED None [place] Other Observations UA NOT REPORTED NOT REQ. [place] RBC (U) [#/Vol] [facility] [place] Renal Epithelial, Urine NOT REPORTED 0 /HPF [place] Trichomonas, UA NOT REPORTED None [place] WBC, UA 0 TO 2 0 /HPF [place] Yeast, UA NOT REPORTED None [place], [place] - [place] Phosphoruson 06-17-2019 Phosphate [Mass/Vol] 3.0 mg/dL 2.6 - 4 .5 mg/dL [place] Protein / creatinine ratio, urineon 06-17-2019 Creatinine, Ur 228.2 mg/dL High 28 - 217 mg/dL [place] Interpretation and review of laboratory results Abnormal [place] Protein (U) [Mass/Vol] 18 mg/dL [place] Comment on above: No normal range esta blished. Urine Total Protein Creatinine Ratio 0.08 [place] Sedimentation Rateon 019 Sed Rate 24 mm 0 - 30 mm [place] Urinalysison 06-17-2019 Bilirubin Urine Negative NEGATIVE [place], [place] Color, UA YELLOW YELLOW [place], [place] Glucose, Ur Negative NEGATIVE [place] Interpretation and review of laboratory results Abnormal [place] Ketones Ql (U) Negative NEGATIVE [place] Leukocyte esterase Test strip Ql (U) Negative NEGATIVE [place] Nitrite, Urine Negative NEGATIVE [place] pH, UA 6.0 [place], [place] Protein (U) [Mass/Vol] TRACE Abnormal NEGATIVE [place] Specific [place], UA 1.025 [place] Turbidity UA HAZY Abnormal CLEAR [place] Urinalysis Comments [place] Urine Hgb Negative NEGATIVE [place] Urobilinogen, Urine Normal Normal [place] MR CERVICAL SPINE WITHOUT CO NTRASTon [...] be due to myelomalacia or cord edema. /[employer] Workstation ID: [id number] [facility] EXAMINATION: MR CERVICAL SPINE WITHOUT CONTRAST HISTORY: [...] creating probable mild left-sided neural foraminal stenosis. [facility], Prasad In Aric Mohanq - 02/03/2019 11:02 [...] be due to myelomalacia or cord edema. /[employer] Workstation ID: [id number] [facility] MR CERVICAL SPINE WITHOUT CONTRAST EXAMINATION: MR [...] be due to myelomalacia or cord edema. /[employer] Workstation ID: [id number] Dictated by: RONALD MCCRAY on ThuFebruary 03, 2019 10:34:16 AM EDT Transcribed by: FELICITY DE JESUS on ThuFebruary 03, 2019 10:58:51 AM EDT Finalized by: RONALD MCCRAY on ThuFebruary 03, 2019 10:59:35 AM EDT [facility] Comment on above: Order Comment: Reaso n [...] GROWTH 48 DAYS Report Status FINAL 10/11/2018 [facility] Comment on above: Performed By: #### T ROPI #### [facility] [address] [place] [address] Cult,Mycobacteria Specimen Description .SPINE .TISSUE T4 LAMINA Special Requests NOT REPORTED Direct Exam NO ACID FAST BACILLI SEEN (DIRECT SMEAR) Culture NO GROWTH 48 DAYS Report Status FINAL 10/11/2018 [facility] Comment on above: Performed By: #### L ACWB #### [id number] [place] [address] Cult,Funguson 09-27-2018 Cult,Fungus Specimen Description .TISSUE EPIDURAL TISSUE Special Requests NOT REPORTED Culture NO GROWTH 34 DAYS Report Status FINAL 09/27/2018 [facility] Comment on above: Performed By: #### L ACWB #### [address] [address] Cult,Fungus Specimen Description .SPINE .TISSUE T4 LAMINA Special Requests NOT REPORTED Culture NO GROWTH 34 DAYS Report Status FINAL 09/27/2018 [facility] Comment on above: Performed By: #### L ACWB #### [address] [address] BUNon 09-23-2018 Urea nitrogen mass conc 20 mg/dL Normal - [facility] Comment on above: Performed By: #### [id number] ####[address] [id number] [place] [address] Creatinineon 09-23-2018 Creatinine mass conc 1.3 mg/dL High 0.5-1.1 [facility] Comment on above: Performed By: #### [id number] ####[employer] [id number] [place] [address] eGFRon 09-23-2018 eGFR AA 54 mL/min/1.73 m2 Normal [facility] Comment on above: Order Comment: Order added by Discern Expert. Performed By: #### [id number] ####OVIDIO [id number] [place] [address] GFR/1.73 sq M predicted among non-blacks MDRD vol rate/area (S/P/Bld) 45 mL/min/1.73 m2 Normal [facility] Comment on above: Order Comment: Order added by Discern Expert. Performed By: #### 2 [id number] ####OVIDIO [id number] [place] [address] Auto Diffon 09-20-2018 Basophils Auto #/vol (Bld) 0.0 E3/mcL Normal 0.0-0.2 [facility] Comment on above: Order Comment: Order Added by Discern Expert. Performed By: #### 2 [id number] ####OVIDIO HnoRfit1029 [place] [address] Basophils/100 WBC Auto (Bld) 1.1 % Normal 0.0-2.0 [facility] Comment on above: Order Comment: Order Added by Discern Expert. Performed By: #### 2 [id number] ####OVIDIO UqbTuqz5915 [place] [address] Eos Absolute 0.0 E3/mcL Normal 0.0-0.7 [facility] Comment on above: Order Comment: Order Added by Discern Expert. Performed By: #### 2 [id number] ####OVIDIO ImjFguw1315 [place] [address] Eosinophils/100 WBC Auto (Bld) 0.3 % Normal 0.0-11.0 [facility] Comment on above: Order Comment: Order Added by Discern Expert. Performed By: #### 2 [id number] ####OVIDIO EruShjr9510 [place] [address] Lymphocytes Auto #/vol (Bld) 1.2 E3/mcL Normal 1.2-3.4 [facility] Comment on above: Order Comment: Order Added by Discern Expert. Performed By: #### 2 [id number] ####OVIDIO XmzYnpf2573 [place] [address] Lymphocytes/100 WBC Auto (Bld) 30.6 % Normal 20.0-55.0 [facility] Comment on above: Order Comment: Order Added by Discern Expert. Performed By: #### 2 [id number] ####OVIDIO VjvJwra0612 [place] [address] [place] Absolute 0.4 E3/mcL Normal 0.0-0.7 [facility] Comment on above: Order Comment: Order Added by Discern Expert. Performed By: #### 2 [id number] ####OVIDIO Valleo1025 [place] [address] Monocytes/100 WBC Auto (Bld) 10.2 % High 0.0-10.0 [facility] Comment on above: Order Comment: Order Added by Discern Expert. Performed By: #### 2 [id number] ####OVIDIO [address] [place] [address] Neutro Absolute 2.3 E3/mcL Normal 1.4-6.5 [facility] Comment on above: Order Comment: Order Added by Discern Expert. Performed By: #### 2 [id number] ####OVIDIO [address] [place] [address] Neutro Auto 57.8 % Normal 37.0-75.0 [facility] Comment on above: Order Comment: Order Added by Discern Expert. Performed By: #### 2 [id number] ####OVIDIO [address] [place] [id number] CBC w/ Auto Diffon 8 Erythrocyte distribution width Auto Ratio (RBC) 19.9 % High 11.5-14.5 [facility] Comment on above: Performed By: #### 2 [id number] ####OVIDIO [address] [place] [id number] Hematocrit Auto Volume Fraction (Bld) 26.5 % Low 36.0-48.0 [facility] Comment on above: Performed By: #### 2 [id number] ####OVIDIO [address] [place] [address] Hemoglobin mass conc (Bld) 8.7 g/dL Low 12.0-16.0 [facility] Comment on above: Performed By: #### 2 [id number] ####OVIDIO [address] [place] [address] MCH Auto Entitic mass (RBC) 29.6 pg Normal 27.0-31.0 [facility] Comment on above: Performed By: #### 2 [id number] ####OVIDIO [address] [place] [address] MCHC Auto mass conc (RBC) 32.9 g/dL Low 33.0-37.0 [facility] Comment on above: Performed By: #### 2 [id number] ####OVIDIO AvalosVqtDrcw5229 [place] [id number] MCV Auto Entitic volume (RBC) 89.8 fL Normal 78.0-100.0 [facility] Comment on above: Performed By: #### 2 [id number] ####OVIDIO AvalosKobCigk0874 [place] [id number] Platelet mean volume Auto Entitic volume (Bld) 10.5 fL Normal 7.4-11.0 [facility] Comment on above: Performed By: #### 2 [id number] ####OVIDIO AvalosUutCpax4364 [place] [address] Platelets Auto #/vol (Bld) 117 E3/mcL Low 130-400 [facility] Comment on above: Performed By: #### 2 [id number] ####OVIDIO A[address]osTldFudi0635 [place] [address] RBC Auto #/vol (Bld) 2.95 E6/mcL Low 3.90-5.40 [facility] Comment on above: Performed By: #### 2 246504 ####OVIDIO AvalosLdiCcbn1827 [place] [id number] WBC Auto #/vol (Bld) 4.0 E3/mcL Normal 3.6-11.0 [facility] Comment on above: Performed By: #### 2 145150 ####OVIDIO A[address]osIhhHtyb2156 [place] [id number] CRPon 09-20-2018 CRP mass conc 0.83 mg/dL Normal 0.00-1.00 [facility] Comment on above: Performed By: #### 2 325186 ####OVIDIO AvalosNbqConn8801 [place] [id number] Morphon 09-20-2018 Anisocytosis Auto Ql (Bld) 1+ Normal [facility] Comment on above: Order Comment: Order Added by Discern Expert. Performed By: #### 1 [id number] ####OVIDIO AvalosOsdGpyp2381 [place] [id number] Hypochromasia 1+ Normal [facility] Comment on above: Order Comment: Order Added by Discern Expert. Performed By: #### 1 [id number] ####OVIDIO ChsNwsq5545 [place] [id number] RBC morphology finding Nom (Bld) SEE MORPHOLOGY Normal [facility] Comment on above: Order Comment: Order Added by Discern Expert. Performed By: #### 1 [id number] ####OVIDIO JhdIuaq5375 [place] [address] Sed Rate Automatedon 018 Sed Rate Automated 15 mm/hr Normal [facility] Comment on above: Result Comment: AGE- SPECIFIC REFERENCE RANGES FOR SEDIMENTATION RATE AUTOMATED REFERENCE RANGE - MM/HR AGE MEN WOMEN 0-2 0-2 - PUBERTY 3-13 3-13 PUBERTY - 50 YRS 0-15 0-20 > 50 YRS 0-20 0-30 Performed By: #### 1 [id number] ####OVIDIO Hematology Manual Pfvicodopy0663 [place] [id number] zzplt morphon 09-20-2018 Platelet morphology finding Nom (Bld) NORMAL Normal [facility] Comment on above: Performed By: #### 9 [id number] ####OVIDIO GvbWzjh6512 [place] [id number] Platelets Auto #/vol (Bld) NORMAL Normal [facility] Comment on above: Performed By: #### 9 [id number] ####OVIDIO SwrZqip9192 [place] [address] BLOOD UREA NITROGENon 2017 Urea nitrogen mass conc (Bld) 19 mg/dL Normal 7-20 [facility] Comment on above: Performed By: #### A CBC, ESR, BUN, CREAT, CREACT, FX ####Testing performed at [address] [address] C REACTIVE PROTEINon 018 CRP mass conc 18.5 mg/L High 0-10.0 [facility] Comment on above: Performed By: #### A CBC, ESR, BUN, CREAT, CREACT, FX ####Testing performed at [address] [address] CBCon 09-13-2018 ABSOLUTE BAS 0.1 X10 Normal [facility] Comment on above: Performed By: #### A CBC, ESR, BUN, CREAT, CREACT, FX ####Testing performed at [address] [address] ABSOLUTE EOS 0.20 X10 Normal [facility] Comment on above: Performed By: #### A CBC, ESR, BUN, CREAT, CREACT, FX ####Testing performed at [address] [address] ABSOLUTE NEUTROPHIL COUNT 2.5 x10 Normal 1.0-7.0 [facility] Comment on above: Performed By: #### A CBC, ESR, BUN, CREAT, CREACT, FX ####Testing performed at [address] [address] Basophils/100 WBC Auto (Bld) 1.4 % Normal 0.0-2.0 [facility] Comment on above: Performed By: #### A CBC, ESR, BUN, CREAT, CREACT, FX ####Testing performed at [address] [address] DTYPE AUTO DIFF Normal [facility] Comment on above: Performed By: #### A CBC, ESR, BUN, CREAT, CREACT, FX ####Testing performed at [address] [address] Eosinophils/100 WBC Auto (Bld) 3.5 % Normal 0.0-11.0 [facility] Comment on above: Performed By: #### A CBC, ESR, BUN, CREAT, CREACT, FX ####Testing performed at [address] [address] Lymphocytes Auto #/vol (Bld) 1.10 X10 Normal [facility] Comment on above: Performed By: #### A CBC, ESR, BUN, CREAT, CREACT, FX ####Testing performed at [address] [address] Lymphocytes/100 WBC Auto (Bld) 27.0 % Normal 20.0-55.0 [facility] Comment on above: Performed By: #### A CBC, ESR, BUN, CREAT, CREACT, FX ####[place] [address] Monocytes Auto #/vol (Bld) 0.4 X10 Normal [facility] Comment on above: Performed By: #### A CBC, ESR, BUN, CREAT, CREACT, FX ####[place] [address] Monocytes/100 WBC Auto (Bld) 9.4 % Normal 0.0-10.0 [facility] Comment on above: Performed By: #### A CBC, ESR, BUN, CREAT, CREACT, FX ####[place] [address] Neutrophils/100 WBC Auto (Bld) 58.7 % Normal 37.0-75.0 [facility] Comment on above: Performed By: #### A CBC, ESR, BUN, CREAT, CREACT, FX ####[place] [address] Erythrocyte distribution width Auto Ratio (RBC) 17.6 % High 11.5-14.5 [facility] Comment on above: Performed By: #### A CBC, ESR, BUN, CREAT, CREACT, FX ####[place] [address] Hematocrit Auto Volume Fraction (Bld) 26.2 % Low 36.0-48.0 [facility] Comment on above: Performed By: #### A CBC, ESR, BUN, CREAT, CREACT, FX ####[place] [address] Hemoglobin mass conc (Bld) 8.8 g/dL Low 12.0-16.0 [facility] Comment on above: Performed By: #### A CBC, ESR, BUN, CREAT, CREACT, FX ####[place] [address] MCH Auto Entitic mass (RBC) 29.3 pg Normal 26.0-35.0 [facility] Comment on above: Performed By: #### A CBC, ESR, BUN, CREAT, CREACT, FX ####[place] [address] MCHC Auto mass conc (RBC) 33.7 g/dL Normal 27.0-37.0 [facility] Comment on above: Performed By: #### A CBC, ESR, BUN, CREAT, CREACT, FX ####[place] [address] MCV Auto Entitic volume (RBC) 86.9 fL Normal 80.0-100.0 [facility] Comment on above: Performed By: #### A CBC, ESR, BUN, CREAT, CREACT, FX ####[place] [address] Platelet mean volume Auto Entitic volume (Bld) 10.1 fL Normal 7.4-11.0 [facility] Comment on above: Performed By: #### A CBC, ESR, BUN, CREAT, CREACT, FX ####[place] [address] Platelets Auto #/vol (Bld) 130 /cmm Normal 130.0-400.0 [facility] Comment on above: Performed By: #### A CBC, ESR, BUN, CREAT, CREACT, FX ####[place] [address] RBC Auto #/vol (Bld) 3.01 /cmm Low 4.0-5.4 [facility] Comment on above: Performed By: #### A CBC, ESR, BUN, CREAT, CREACT, FX ####[place] [address] WBC Auto #/vol (Bld) 4.2 /cmm Normal 3.6-11.0 [facility] Comment on above: Performed By: #### A CBC, ESR, BUN, CREAT, CREACT, FX ####[place] [address] CREATININE,SERUMon 8 Creatinine mass conc 1.5 mg/dL High 0.52-1.04 [facility] Comment on above: Performed By: #### A CBC, ESR, BUN, CREAT, CREACT, FX ####[place] [address] EST. GFR, 50 ml/min/1.73sq.m [facility] Comment on above: Performed By: #### A CBC, ESR, BUN, CREAT, CREACT, FX ####Testing performed at [place] [id number] EST. GFR,Non 41 ml/min/1.73sq.m [facility] Comment on above: Performed By: #### A CBC, ESR, BUN, CREAT, CREACT, FX ####[place] [address] GFR/1.73 sq M predicted among non-blacks MDRD vol rate/area (S/P/Bld) Average GFR for 30-39 years old = 109. [facility] Comment on above: Result Comment: Cardiac Specialist vasu Kidney disease, GFR = <60.Kidney failure, GFR = <15.The GFR estimate is not adjusted for extreme body surface area or acute process, nor has it been validated for women or ethnic groups other than and . Performed By: #### A CBC, ESR, BUN, CREAT, CREACT, FX ####[place] [address] ESRon 09-13-2018 ESR Velocity (Bld) 49 mm/h High 0-15 [facility] Comment on above: Performed By: #### A CBC, ESR, BUN, CREAT, CREACT, FX ####Testing performed at [place] [id number] FAX REQUESTon 09-13-2018 FAX TO FAX TO DR DEVAN Bernal [phone] AND TO [facility] AT [phone] [facility] Comment on above: Performed By: #### P HY, BUN, CREAT, FX ####Testing performed at [place] [id number] FAX REQUESTon 09-06-2018 FAX TO [phone] [facility] Comment on above: Performed By: #### F X ####Testing performed at [address] [address] BLOOD UREA NITROGENon 2017 Urea nitrogen mass conc (Bld) 21 mg/dL High 7-20 [facility] Comment on above: Performed By: #### P HY, BUN, CREAT, FX ####Testing performed at [place] [id number] CREATININE,SERUMon 8 Creatinine mass conc 1.4 mg/dL High 0.52-1.04 [facility] Comment on above: Performed By: #### P HY, BUN, CREAT, FX ####Testing performed at [place] [id number] EST. GFR, 54 ml/min/1.73sq.m [facility] Comment on above: Performed By: #### P HY, BUN, CREAT, FX ####Testing performed at [place] [id number] EST. GFR,Non 44 ml/min/1.73sq.m [facility] Comment on above: Performed By: #### P HY, BUN, CREAT, FX ####[place] [address] GFR/1.73 sq M predicted among non-blacks MDRD vol rate/area (S/P/Bld) Average GFR for 30-39 years old = 109. [facility] Comment on above: Result Comment: Cardiac Specialist vasu Kidney disease, GFR = <60.Kidney failure, GFR = <15.The GFR estimate is not adjusted for extreme body surface area or acute process, nor has it been validated for women or ethnic groups other than and . Performed By: #### P HY, BUN, CREAT, FX ####Testing performed at [address] [address] FAX REQUESTon 08-31-2018 FAX TO [phone] [facility] Comment on above: Performed By: #### P HY, BUN, CREAT, FX ####Testing performed at [address] [address] GAL NEW PHYSICIANon 08-31-20 [address] [facility] PHYSICIAN DEVAN UP [facility] Comment on above: Performed By: #### P HY, BUN, CREAT, FX ####Testing performed at [address] [address] BUNon 08-27-2018 Urea nitrogen mass conc 24 mg/dL High 03-27 [facility] Comment on above: Performed By: #### 2 [id number] ####OVIDIO Icdqkdhv6688 [place] [address] Creatinineon 08-27-2018 Creatinine mass conc 1.6 mg/dL High 0.5-1.1 [facility] Comment on above: Performed By: #### 2 [id number] ####OVIDIO Mdsofhip8786 [place] [address] eGFRon 08-27-2018 eGFR AA 43 mL/min/1.73 m2 [facility] Comment on above: Order Comment: Order added by Discern Expert. Performed By: #### 1 [id number] ####OVIDIO VlgNlgf8020 [place] [id number] GFR/1.73 sq M predicted among non-blacks MDRD vol rate/area (S/P/Bld) 36 mL/min/1.73 m2 [facility] Comment on above: Order Comment: Order added by Discern Expert. Performed By: #### 1 [id number] ####OVIDIO IpxVuek4905 [place] [address] Cult,Tissueon 08-26-2018 Cult,Tissue Specimen Description .TISSUE EPIDURAL [...] Trimethoprim/Sulfa <=10 SUSCEPTIBLE Vancomycin <=0.5 SUSCEPTIBLE Normal [facility] Comment on above: Performed By: #### L ACWB #### [facility] [address] [place] [address] [id number] Cult,Tissue Specimen Description .SPINE .TISSUE T4 LAMINA [...] Trimethoprim/Sulfa <=10 SUSCEPTIBLE Vancomycin <=0.5 SUSCEPTIBLE Normal [facility] Comment on above: Performed By: #### L ACWB #### [address] [id number] Basic Metabolic Profon 08-25 (cont.) Normal [facility] Comment on above: Result Comment: Aver age GFR for 30-39 years old: 107 mL/min/1.73sq m Chronic Kidney Disease: <60 mL/min/1.73sq m Kidney failure: <15 mL/min/1.73sq m eGFR calculated using average adult body mass. Additional eGFR calculator available at: http://www.[employer].com/multiple_crcl_2012.htm Performed By: #### L ACWB #### [facility] [address] [place] [address] [phone] Anion gap molar conc 14 mmol/L Normal -17 [facility] Comment on above: Performed By: #### L ACWB #### [facility] [address] [place] [address] Calcium mass conc 9.1 mg/dL Normal 8.6-10.4 [facility] Comment on above: Performed By: #### L ACWB #### [facility] [address] [place] [address] Chloride molar conc 96 mmol/L Low 98-107 [facility] Comment on above: Performed By: #### L ACWB #### [facility] [address] [place] [address] CO2 molar conc 23 mmol/L Normal 20-31 [facility] Comment on above: Performed By: #### L ACWB #### [facility] [address] [place] [address] Creatinine mass conc 1.52 mg/dL High 0.50-0.90 [facility] Comment on above: Performed By: #### L ACWB #### [facility] [address] [place] [address] GFR, Amer 46 mL/min Low >60 [facility] Comment on above: Performed By: #### L ACWB #### [facility] [address] [place] [address] GFR,non Amer 38 mL/min Low >60 [facility] Comment on above: Performed By: #### L ACWB #### [facility] [address] [place] [address] Glucose mass conc 95 mg/dL Normal 70-99 [facility] Comment on above: Performed By: #### L ACWB #### [facility] [address] [place] [address] Potassium molar conc 4.5 mmol/L Normal 3.7-5.3 [facility] Comment on above: Performed By: #### L ACWB #### [facility] [address] [place] [address] Sodium molar conc 133 mmol/L Low 135-144 [facility] Comment on above: Performed By: #### L ACWB #### [facility] [address] [place] [address] Urea nitrogen mass conc 43 mg/dL High 6-20 [facility] Comment on above: Performed By: #### L ACWB #### [facility] [address] [place] [address] BUN/CRE Ratio NOT REPORTED Normal - [facility] Comment on above: Performed By: #### L ACWB #### [facility] [address] [place] [address] Staging: NOT REPORTED Normal [facility] Comment on above: Performed By: #### L ACWB #### [facility] [address] [place] [address] CBC with Diffon 08-25-2018 Abs. Basophil 0.07 k/uL Normal 0.00-0.20 [facility] Comment on above: Performed By: #### L ACWB #### [facility] [address] [place] [address] Abs.Imm.Granulocyte 0.08 k/uL Normal 0.00-0.30 [facility] Comment on above: Performed By: #### L ACWB #### [facility] [address] [place] [address] Abs.Neutrophil (Seg) 5.77 k/uL Normal 1.50-8.10 [facility] Comment on above: Performed By: #### L ACWB #### [facility] [address] [place] [address] Basophils/100 WBC (Bld) 1 % Normal 0-2 [facility] Comment on above: Performed By: #### L ACWB #### [address] [address] Eosinophils #/vol (Bld) 0.12 10*3/uL Normal 0.00-0.44 [facility] Comment on above: Performed By: #### L ACWB #### [address] [address] Eosinophils/100 WBC (Bld) 1 % Normal 1-4 [facility] Comment on above: Performed By: #### L ACWB #### [address] [address] Immature granulocytes #/vol (Bld) 1 % High 0 [facility] Comment on above: Performed By: #### L ACWB #### [address] [address] Lymphocytes #/vol (Bld) 1.83 10*3/uL Normal 1.10-3.70 [facility] Comment on above: Performed By: #### L ACWB #### [address] [address] Lymphocytes/100 WBC (Bld) 21 % Low 24-43 [facility] Comment on above: Performed By: #### L ACWB #### [address] [address] Monocytes #/vol (Bld) 0.92 10*3/uL Normal 0.10-1.20 [facility] Comment on above: Performed By: #### L ACWB #### [address] [address] Monocytes/100 WBC (Bld) 11 % Normal 3-12 [facility] Comment on above: Performed By: #### L ACWB #### [facility] [address] [place] [address] Neutrophil (Seg) 66 % High 36-65 [facility] Comment on above: Performed By: #### L ACWB #### [facility] [address] [place] [address] Erythrocyte distribution width Ratio (RBC) 14.6 % High 11.8-14.4 [facility] Comment on above: Performed By: #### L ACWB #### [facility] [address] [place] [address] Hematocrit Volume Fraction (Bld) 32.6 % Low 36.3-47.1 [facility] Comment on above: Performed By: #### L ACWB #### [facility] [address] [place] [address] Hemoglobin mass conc (Bld) 10.0 g/dL Low 11.9-15.1 [facility] Comment on above: Performed By: #### L ACWB #### [address] [address] MCH Entitic mass (RBC) 28.2 pg Normal 25.2-33.5 [facility] Comment on above: Performed By: #### L ACWB #### [facility] [address] [place] [address] MCHC mass conc (RBC) 30.7 g/dL Normal 28.4-34.8 [facility] Comment on above: Performed By: #### L ACWB #### [facility] [address] [place] [address] MCV Entitic volume (RBC) 91.8 fL Normal 82.6-102.9 [facility] Comment on above: Performed By: #### L ACWB #### [facility] [address] [place] [address] NRBC Automated 0.0 per 100 WBC Normal 0.0 [facility] Comment on above: Performed By: #### L ACWB #### [address] [address] Platelet mean volume Entitic volume (Bld) 10.4 fL Normal 8.1-13.5 [facility] Comment on above: Performed By: #### L ACWB #### [address] [address] Platelets #/vol (Bld) 292 10*3/uL Normal 138-453 [facility] Comment on above: Performed By: #### L ACWB #### [address] [address] RBC #/vol (Bld) 3.55 10*6/uL Low 3.95-5.11 [facility] Comment on above: Performed By: #### L ACWB #### [address] [address] RBC morphology finding Nom (Bld) ANISOCYTOSIS PRESENT Normal [facility] Comment on above: Performed By: #### L ACWB #### [address] [address] WBC #/vol (Bld) 8.8 10*3/uL Normal 3.5-11.3 [facility] Comment on above: Performed By: #### L ACWB #### [address] [address] Auto Diff Performed NOT REPORTED Normal [facility] Comment on above: Performed By: #### L ACWB #### [address] [address] Platelets #/vol (Bld) NOT REPORTED Normal [facility] Comment on above: Performed By: #### L ACWB #### [place] [address] [place] [address] WBC Morphology NOT REPORTED Normal [facility] Comment on above: Performed By: #### L ACWB #### [place] [address] [place] [address] Fungi,Direct Examon 08-25-20 18 Fungi,Direct Exam Specimen Description .SPINE .TISSUE T4 LAMINA Special Requests NOT REPORTED Direct Exam NO FUNGAL ELEMENTS SEEN Report Status FINAL 08/25/2018 Normal [facility] Comment on above: Performed By: #### L ACWB #### [address] [address] Magnesiumon 08-25-2018 Magnesium mass conc 2.4 mg/dL Normal 1.6-2.6 [facility] Comment on above: Performed By: #### L ACWB #### [address] [address] Procalcitoninon 08-25-2018 Protein mass conc 0.13 ng/mL High <0.09 [facility] Comment on above: Result Comment: Suspected [...] entered into the Change in Procalcitonin Calculator (www.vqzqvx-jll-irrddkbgja.com) to determine the patient's Mortality Risk Prognosis Performed By: #### L ACWB #### [address] [address] Cult,Aerobe/Anaerobeon 08-24 Cult,Aerobe/Anaerobe Specimen Descriptio n .SPINE Special Requests NOT REPORTED Direct Exam DUPLICATE ORDER SEE RESULTS FOR TISSUE CULTURE Culture NOT REPORTED Report Status FINAL 08/24/2018 Normal [facility] Comment on above: Performed By: #### S PAG #### [address] [address] Cult,Aerobe/Anaerobe Specimen Descriptio n .SPINE Special Requests NOT REPORTED Direct Exam DUPLICATE ORDER SEE RESUULTS FOR TISSUE CULTURE Culture NOT REPORTED Report Status FINAL 08/24/2018 Normal [facility] Comment on above: Performed By: #### S PAG #### [address] [address] FLUORO FOR SURGICAL PROCEDUR ESon 08-24-2018 FLUORO FOR SURGICAL PROCEDURES Radiology exam is complete. No Radiologist dictation. Please follow up with ordering provider. Final result Normal [facility] OPERATIVE REPORTon 8 OPERATIVE REPORT [address] [address] OPERATIVE REPORT PATIENT NAME: CELINA GASPAR : 1980 MED REC NO: [id number] ROOM: [facility] ACCOUNT NO: [id number] ADMIT DATE: 08/15/2018 PROVIDER: Lita Mccray MD DATE OF PROCEDURE: 08/23/2018 SURGEON: Lita Mccray MD FAIR[employer] OPERATOR: Eliel Larios DO PREOPERATIVE DIAGNOSIS: Epidural abscess, [...] satisfactory condition. LITA MCCRAY MD [id number] Doc#: [id number] CC: Lita Mccray MD [facility] Procalcitoninon 08-24-2018 Protein mass conc 0.16 ng/mL High <0.09 [facility] Comment on above: Result Comment: Suspected [...] entered into the Change in Procalcitonin Calculator (www.jwjtku-uek-vzowzowhks.Sensity Systems) to determine the patient's Mortality Risk Prognosis Performed By: #### S PAG #### [facility] [address] [place] [address] Basic Metab w/rfx MGon 08-23 (cont.) [facility] Comment on above: Result Comment: Aver age GFR for 30-39 years old: 107 mL/min/1.73sq m Chronic Kidney Disease: <60 mL/min/1.73sq m Kidney failure: <15 mL/min/1.73sq m eGFR calculated using average adult body mass. Additional eGFR calculator available at: http://www.[employer].Sensity Systems/multiple_crcl_2012.htm Performed By: #### S PAG #### [facility] [address] [place] [address] Anion gap molar conc 14 mmol/L Normal 9-17 [facility] Comment on above: Performed By: #### S PAG #### [facility] [address] [place] [address] Calcium mass conc 9.9 mg/dL Normal 8.6-10.4 [facility] Comment on above: Performed By: #### S PAG #### [facility] [address] [place] [address] Chloride molar conc 99 mmol/L Normal 98-107 [facility] Comment on above: Performed By: #### S PAG #### [facility] [address] [place] [address] CO2 molar conc 26 mmol/L Normal 20-31 [facility] Comment on above: Performed By: #### S PAG #### [facility] [address] [place] [address] Creatinine mass conc 1.42 mg/dL High 0.50-0.90 [facility] Comment on above: Performed By: #### S PAG #### [facility] [address] [place] [address] GFR, Amer 50 mL/min Low >60 [facility] Comment on above: Performed By: #### S PAG #### [facility] [address] [place] [address] GFR,non Amer 41 mL/min Low >60 [facility] Comment on above: Performed By: #### S PAG #### [facility] [address] [place] [address] Glucose mass conc 95 mg/dL Normal 70-99 [facility] Comment on above: Performed By: #### S PAG #### [facility] [place] [address] Potassium molar conc 4.9 mmol/L Normal 3.7-5.3 [facility] Comment on above: Result Comment: SPEC IMEN SLIGHTLY HEMOLYZED, RESULTS MAY BE ADVERSELY AFFECTED. Performed By: #### S PAG #### [facility] [address] [place] [address] Sodium molar conc 139 mmol/L Normal 135-144 [facility] Comment on above: Performed By: #### S PAG #### [facility] [address] [place] [address] Urea nitrogen mass conc 31 mg/dL High - [facility] Comment on above: Performed By: #### S PAG #### [address] [address] BUN/CRE Ratio NOT REPORTED Normal - [facility] Comment on above: Performed By: #### S PAG #### [address] [address] Staging: NOT REPORTED Normal [facility] Comment on above: Performed By: #### S PAG #### [address] [address] CBC with Diffon 08-23-2018 Abs. Basophil 0.06 k/uL Normal 0.00-0.20 [facility] Comment on above: Performed By: #### S PAG #### [facility] [address] [place] [address] Abs.Imm.Granulocyte 0.22 k/uL Normal 0.00-0.30 [facility] Comment on above: Performed By: #### S PAG #### [address] [address] Abs.Neutrophil (Seg) 4.43 k/uL Normal 1.50-8.10 [facility] Comment on above: Performed By: #### S PAG #### [address] [address] Basophils/100 WBC (Bld) 1 % Normal 0-2 [facility] Comment on above: Performed By: #### S PAG #### [address] [address] Eosinophils #/vol (Bld) 0.15 10*3/uL Normal 0.00-0.44 [facility] Comment on above: Performed By: #### S PAG #### [address] [address] Eosinophils/100 WBC (Bld) 2 % Normal 1-4 [facility] Comment on above: Performed By: #### S PAG #### [address] [address] Erythrocyte distribution width Ratio (RBC) 14.4 % Normal 11.8-14.4 [facility] Comment on above: Performed By: #### S PAG #### [address] [address] Hematocrit Volume Fraction (Bld) 33.2 % Low 36.3-47.1 [facility] Comment on above: Performed By: #### S PAG #### [address] [address] Hemoglobin mass conc (Bld) 10.4 g/dL Low 11.9-15.1 [facility] Comment on above: Performed By: #### S PAG #### [address] [address] Immature granulocytes #/vol (Bld) 3 % High 0 [facility] Comment on above: Performed By: #### S PAG #### [address] [address] Lymphocytes #/vol (Bld) 2.22 10*3/uL Normal 1.10-3.70 [facility] Comment on above: Performed By: #### S PAG #### [address] [address] Lymphocytes/100 WBC (Bld) 29 % Normal 24-43 [facility] Comment on above: Performed By: #### S PAG #### [address] [address] MCH Entitic mass (RBC) 27.7 pg Normal 25.2-33.5 [facility] Comment on above: Performed By: #### S PAG #### [address] [address] MCHC mass conc (RBC) 31.3 g/dL Normal 28.4-34.8 [facility] Comment on above: Performed By: #### S PAG #### [address] [address] MCV Entitic volume (RBC) 88.3 fL Normal 82.6-102.9 [facility] Comment on above: Performed By: #### S PAG #### [address] [address] Monocytes #/vol (Bld) 0.63 10*3/uL Normal 0.10-1.20 [facility] Comment on above: Performed By: #### S PAG #### [address] [address] Monocytes/100 WBC (Bld) 8 % Normal 3-12 [facility] Comment on above: Performed By: #### S PAG #### [address] [address] Neutrophil (Seg) 57 % Normal 36-65 [facility] Comment on above: Performed By: #### S PAG #### [address] [address] NRBC Automated 0.0 per 100 WBC Normal 0.0 [facility] Comment on above: Performed By: #### S PAG #### [address] [address] Platelets #/vol (Bld) See Reflexed IPF Result Normal 138-453 [facility] Comment on above: Performed By: #### S PAG #### [address] [address] RBC #/vol (Bld) 3.76 10*6/uL Low 3.95-5.11 [facility] Comment on above: Performed By: #### S PAG #### [address] [address] WBC #/vol (Bld) 7.7 10*3/uL Normal 3.5-11.3 [facility] Comment on above: Performed By: #### S PAG #### [address] [address] Auto Diff Performed NOT REPORTED Normal [facility] Comment on above: Performed By: #### S PAG #### [address] [address] Platelet mean volume Entitic volume (Bld) NOT REPORTED Normal 8.1-13.5 [facility] Comment on above: Performed By: #### S PAG #### [address] [address] Platelets #/vol (Bld) NOT REPORTED Normal [facility] Comment on above: Performed By: #### S PAG #### [address] [address] RBC morphology finding Nom (Bld) NOT REPORTED Normal [facility] Comment on above: Performed By: #### S PAG #### [address] [address] WBC Morphology NOT REPORTED Normal [facility] Comment on above: Performed By: #### S PAG #### [address] [address] Cult,Bloodon 08-23-2018 Cult,Blood Specimen Description .BLOOD Special Requests L AC 6ML Culture NO GROWTH 6 DAYS Report Status FINAL 08/23/2018 Normal [facility] Comment on above: Performed By: #### S PAG #### [address] [address] Cult,Blood Specimen Description .BLOOD Special Requests L FOREARM 6ML Culture NO GROWTH 6 DAYS Report Status FINAL 08/23/2018 Normal [facility] Comment on above: Performed By: #### S PAG #### [address] [address] PLT, Immature Fract.on 08-23 Platelet, Fluoresc. 113 k/uL Low 138-453 [facility] Comment on above: Performed By: #### S PAG #### [address] [address] PLT, Immature Fract. 3.7 % Normal 1.1-10.3 [facility] Comment on above: Performed By: #### S PAG #### [address] [address] CBC with Diffon 08-22-2018 Abs. Basophil 0.00 k/uL Normal 0.0-0.2 [facility] Comment on above: Performed By: #### U LAG #### [address] [address] Abs.Imm.Granulocyte 0.30 k/uL Normal 0.00-0.30 [facility] Comment on above: Performed By: #### U LAG #### [address] [address] Abs.Neutrophil (Seg) 4.87 k/uL Normal 1.8-7.7 [facility] Comment on above: Performed By: #### U LAG #### [address] [address] Basophils/100 WBC (Bld) 0 % Normal 0-2 [facility] Comment on above: Performed By: #### U LAG #### [address] [address] Eosinophils #/vol (Bld) 0.00 10*3/uL Normal 0.0-0.4 [facility] Comment on above: Performed By: #### U LAG #### [address] [address] Eosinophils/100 WBC (Bld) 0 % Low 1-4 [facility] Comment on above: Performed By: #### U LAG #### [address] [address] Immature granulocytes #/vol (Bld) 4 % High 0 [facility] Comment on above: Performed By: #### U LAG #### [address] [address] Lymphocytes #/vol (Bld) 1.88 10*3/uL Normal 1.0-4.8 [facility] Comment on above: Performed By: #### U LAG #### [address] [address] Lymphocytes/100 WBC (Bld) 25 % Normal 24-44 [facility] Comment on above: Performed By: #### U LAG #### [address] [address] Monocytes #/vol (Bld) 0.45 10*3/uL Normal 0.1-0.8 [facility] Comment on above: Performed By: #### U LAG #### [facility] [address] [place] [address] Monocytes/100 WBC (Bld) 6 % Normal 1-7 [facility] Comment on above: Performed By: #### U LAG #### [facility] [address] [place] [address] Morphology Interp Rehan (Bld) ANISOCYTOSIS PRESENT Normal [facility] Comment on above: Performed By: #### U LAG #### [facility] [address] [place] [address] Neutrophil (Seg) 65 % Normal 36-66 [facility] Comment on above: Performed By: #### U LAG #### [facility] [address] [place] [address] Erythrocyte distribution width Ratio (RBC) 14.5 % High 11.8-14.4 [facility] Comment on above: Performed By: #### U LAG #### [facility] [address] [place] [address] Hematocrit Volume Fraction (Bld) 38.1 % Normal 36.3-47.1 [facility] Comment on above: Performed By: #### U LAG #### [facility] [address] [place] [address] Hemoglobin mass conc (Bld) 11.5 g/dL Low 11.9-15.1 [facility] Comment on above: Performed By: #### U LAG #### [facility] [address] [place] [address] MCH Entitic mass (RBC) 28.3 pg Normal 25.2-33.5 [facility] Comment on above: Performed By: #### U LAG #### [address] [address] MCHC mass conc (RBC) 30.2 g/dL Normal 28.4-34.8 [facility] Comment on above: Performed By: #### U LAG #### [address] [address] MCV Entitic volume (RBC) 93.6 fL Normal 82.6-102.9 [facility] Comment on above: Performed By: #### U LAG #### [address] [address] NRBC Automated 0.0 per 100 WBC Normal 0.0 [facility] Comment on above: Performed By: #### U LAG #### [address] [address] Platelet mean volume Entitic volume (Bld) 10.7 fL Normal 8.1-13.5 [facility] Comment on above: Performed By: #### U LAG #### [address] [address] Platelets #/vol (Bld) 265 10*3/uL Normal 138-453 [facility] Comment on above: Performed By: #### U LAG #### [address] [address] RBC #/vol (Bld) 4.07 10*6/uL Normal 3.95-5.11 [facility] Comment on above: Performed By: #### U LAG #### [address] [address] WBC #/vol (Bld) 7.5 10*3/uL Normal 3.5-11.3 [facility] Comment on above: Performed By: #### U LAG #### [address] [address] Auto Diff Performed NOT REPORTED Normal [facility] Comment on above: Performed By: #### U LAG #### [address] [address] Platelets #/vol (Bld) NOT REPORTED Normal [facility] Comment on above: Performed By: #### U LAG #### [facility] [address] [place] [address] RBC morphology finding Nom (Bld) NOT REPORTED Normal [facility] Comment on above: Performed By: #### U LAG #### [facility] [address] [place] [address] WBC Morphology NOT REPORTED Normal [facility] Comment on above: Performed By: #### U LAG #### [address] [address] Comp Metabolic Pr/rfx MGon 1 10-22-2017 Albumin mass conc 3.2 g/dL Low 3.5-5.2 [facility] Comment on above: Performed By: #### U LAG #### [facility] [address] [place] [address] Albumin/Globulin mass ratio 0.8 {ratio} Low 1.0-2.5 [facility] Comment on above: Performed By: #### U LAG #### [facility] [address] [place] [address] Alkaline Phos 90 U/L Normal 35-104 [facility] Comment on above: Performed By: #### U LAG #### [facility] [address] [place] [address] 61669 ALT enzyme act/vol 18 U/L Normal 5-33 [facility] Comment on above: Performed By: #### U LAG #### [facility] [address] [place] [address] 19808 AST enzyme act/vol 16 U/L Normal <32 [facility] Comment on above: Performed By: #### U LAG #### [employer] [facility] [place] [address] Protein mass conc 7.0 g/dL Normal 6.4-8.3 [facility] Comment on above: Performed By: #### U LAG #### [employer] [address] [place] [address] (cont.) Normal [facility] Comment on above: Result Comment: Aver age GFR for 30-39 years old: 107 mL/min/1.73sq m Chronic Kidney Disease: <60 mL/min/1.73sq m Kidney failure: <15 mL/min/1.73sq m eGFR calculated using average adult body mass. Additional eGFR calculator available at: http://www.[employer]/multiple_crcl_2012.htm Performed By: #### U LAG #### [employer] [address] [place] [address] Anion gap molar conc 15 mmol/L Normal 9-17 [facility] Comment on above: Performed By: #### U LAG #### [employer] [address] [place] [address] Bilirubin Ql (U) 0.34 mg/dL Normal 0.3-1.2 [facility] Comment on above: Performed By: #### U LAG #### [employer] [address] [place] [address] Calcium mass conc 9.7 mg/dL Normal 8.6-10.4 [facility] Comment on above: Performed By: #### U LAG #### [employer] [address] [place] [address] Chloride molar conc 100 mmol/L Normal 98-107 [facility] Comment on above: Performed By: #### U LAG #### [employer] [facility] [place] [address] CO2 molar conc 24 mmol/L Normal 20-31 [facility] Comment on above: Performed By: #### U LAG #### [facility] [address] [place] [address] Creatinine mass conc 1.02 mg/dL High 0.50-0.90 [facility] Comment on above: Performed By: #### U LAG #### [facility] [address] [place] [address] GFR, Amer >60 Normal >60 [facility] Comment on above: Performed By: #### U LAG #### [facility] [address] [place] [address] GFR,non Amer >60 Normal >60 [facility] Comment on above: Performed By: #### U LAG #### [facility] [address] [place] [address]26 Glucose mass conc 101 mg/dL High 70-99 [facility] Comment on above: Performed By: #### U LAG #### [facility] [address] [place] [address] Potassium molar conc 4.5 mmol/L Normal 3.7-5.3 [facility] Comment on above: Performed By: #### U LAG #### [facility] [address] [place] [address] Sodium molar conc 139 mmol/L Normal 135-144 [facility] Comment on above: Performed By: #### U LAG #### [facility] [address] [place] [address] Urea nitrogen mass conc 19 mg/dL Normal 6-20 [facility] Comment on above: Performed By: #### U LAG #### [facility] [address] [place] [address] 216[address] BUN/CRE Ratio NOT REPORTED Normal - [facility] Comment on above: Performed By: #### U LAG #### [address] [address] Staging: NOT REPORTED Normal [facility] Comment on above: Performed By: #### U LAG #### [facility] [address] [place] [address] Magnesiumon 08-22-2018 Magnesium mass conc 2.4 mg/dL Normal 1.6-2.6 [facility] Comment on above: Performed By: #### U LAG #### [facility] [address] [place] [address] Vancomycin Troughon 08-22-20 18 Vancomycin Trough 20.2 ug/mL Critically high 10.0-20.0 [facility] Comment on above: Result Comment: High er trough serum vancomycin concentrations of 15-20 ug/mL are recommended for complicated infections such as bacteremia, endocarditis, osteomyelitis, meningitis, and hospital acquired pneumonia. ADDED ON Performed By: #### U LAG #### [facility] [address] [place] [address]20 Date last dose, NOT REPORTED Normal [facility] Comment on above: Performed By: #### U LAG #### [facility] [address] [place] [address] Dose amount, NOT REPORTED Normal [facility] Comment on above: Performed By: #### U LAG #### [facility] [address] [place] [address] 9[address]71 Time last dose, NOT REPORTED Normal [facility] Comment on above: Performed By: #### U LAG #### [facility] [address] [place] [address] CBC with Diffon 08-21-2018 Abs. Basophil 0.08 k/uL Normal 0.00-0.20 [facility] Comment on above: Performed By: #### U LAG #### [address] [address] Abs.Imm.Granulocyte 0.50 k/uL High 0.00-0.30 [facility] Comment on above: Performed By: #### U LAG #### [address] [address] Abs.Neutrophil (Seg) 4.73 k/uL Normal 1.50-8.10 [facility] Comment on above: Performed By: #### U LAG #### [address] [address] Basophils/100 WBC (Bld) 1 % Normal 0-2 [facility] Comment on above: Performed By: #### U LAG #### [address] [address] Eosinophils #/vol (Bld) 0.17 10*3/uL Normal 0.00-0.44 [facility] Comment on above: Performed By: #### U LAG #### [address] [address] Eosinophils/100 WBC (Bld) 2 % Normal 1-4 [facility] Comment on above: Performed By: #### U LAG #### [address] [address] Immature granulocytes #/vol (Bld) 6 % High 0 [facility] Comment on above: Performed By: #### U LAG #### [address] [address] Lymphocytes #/vol (Bld) 2.24 10*3/uL Normal 1.10-3.70 [facility] Comment on above: Performed By: #### U LAG #### [address] [address] Lymphocytes/100 WBC (Bld) 27 % Normal 24-43 [facility] Comment on above: Performed By: #### U LAG #### [facility] [address] [place] [address] Monocytes #/vol (Bld) 0.58 10*3/uL Normal 0.10-1.20 [facility] Comment on above: Performed By: #### U LAG #### [facility] [address] [place] [address] 9[address] Monocytes/100 WBC (Bld) 7 % Normal 3-12 [facility] Comment on above: Performed By: #### U LAG #### [facility] [address] [place] [address] Morphology Interp Rehan (Bld) ANISOCYTOSIS PRESENT Normal [facility] Comment on above: Performed By: #### U LAG #### [facility] [address] [place] [address] Neutrophil (Seg) 57 % Normal 36-65 [facility] Comment on above: Performed By: #### U LAG #### [facility] [address] [place] [address] 94808 Erythrocyte distribution width Ratio (RBC) 14.6 % High 11.8-14.4 [facility] Comment on above: Performed By: #### U LAG #### [facility] [address] [place] [address] Hematocrit Volume Fraction (Bld) 38.5 % Normal 36.3-47.1 [facility] Comment on above: Performed By: #### U LAG #### [facility] [address] [place] [address] Hemoglobin mass conc (Bld) 11.5 g/dL Low 11.9-15.1 [facility] Comment on above: Performed By: #### U LAG #### [address] [address] MCH Entitic mass (RBC) 28.2 pg Normal 25.2-33.5 [facility] Comment on above: Performed By: #### U LAG #### [address] [address] MCHC mass conc (RBC) 29.9 g/dL Normal 28.4-34.8 [facility] Comment on above: Performed By: #### U LAG #### [address] [address] MCV Entitic volume (RBC) 94.4 fL Normal 82.6-102.9 [facility] Comment on above: Performed By: #### U LAG #### [address] [address] NRBC Automated 0.0 per 100 WBC Normal 0.0 [facility] Comment on above: Performed By: #### U LAG #### [address] [address] Platelet mean volume Entitic volume (Bld) 10.5 fL Normal 8.1-13.5 [facility] Comment on above: Performed By: #### U LAG #### [address] [address] Platelets #/vol (Bld) 264 10*3/uL Normal 138-453 [facility] Comment on above: Performed By: #### U LAG #### [address] [address] RBC #/vol (Bld) 4.08 10*6/uL Normal 3.95-5.11 [facility] Comment on above: Performed By: #### U LAG #### [address] [address] WBC #/vol (Bld) 8.3 10*3/uL Normal 3.5-11.3 [facility] Comment on above: Performed By: #### U LAG #### [facility] [address] [place] [address] 68265 Auto Diff Performed NOT REPORTED Normal [facility] Comment on above: Performed By: #### U LAG #### [facility] [address] [place] [address] 16909 Platelets #/vol (Bld) NOT REPORTED Normal [facility] Comment on above: Performed By: #### U LAG #### [facility] [address] [place] [address] 85059 RBC morphology finding Nom (Bld) NOT REPORTED Normal [facility] Comment on above: Performed By: #### U LAG #### [facility] [address] [place] [address] 99099 WBC Morphology NOT REPORTED Normal [facility] Comment on above: Performed By: #### U LAG #### [facility] [address] [place] [address] 48348 Comp Metabolic Pr/rfx MGon 1 10-21-2017 (cont.) Normal [facility] Comment on above: Result Comment: Aver age GFR for 30-39 years old: 107 mL/min/1.73sq m Chronic Kidney Disease: <60 mL/min/1.73sq m Kidney failure: <15 mL/min/1.73sq m eGFR calculated using average adult body mass. Additional eGFR calculator available at: http://www.[employer].com/multiple_crcl_2012.htm Performed By: #### U LAG #### [facility] [address] [place] [address] 74771 Albumin mass conc 2.9 g/dL Low 3.5-5.2 [facility] Comment on above: Performed By: #### U LAG #### [employer] [address] [place] [address] Albumin/Globulin mass ratio 0.7 {ratio} Low 1.0-2.5 [facility] Comment on above: Performed By: #### U LAG #### [employer] [address] [place] [address] Alkaline Phos 98 U/L Normal 35-104 [facility] Comment on above: Performed By: #### U LAG #### [employer] [facility] [place] [address] ALT enzyme act/vol 19 U/L Normal 5-33 [facility] Comment on above: Performed By: #### U LAG #### [facility] [place] [address] Anion gap molar conc 14 mmol/L Normal 9-17 [facility] Comment on above: Performed By: #### U LAG #### [employer] [facility] [place] [address] AST enzyme act/vol 21 U/L Normal <32 [facility] Comment on above: Performed By: #### U LAG #### [facility] [place] [address] Bilirubin Ql (U) 0.32 mg/dL Normal 0.3-1.2 [facility] Comment on above: Performed By: #### U LAG #### [employer] [facility] [place] [address] Calcium mass conc 9.1 mg/dL Normal 8.6-10.4 [facility] Comment on above: Performed By: #### U LAG #### [employer] [facility] [place] [address] Chloride molar conc 102 mmol/L Normal 98-107 [facility] Comment on above: Performed By: #### U LAG #### [employer] [facility] [place] [address] CO2 molar conc 23 mmol/L Normal 20-31 [facility] Comment on above: Performed By: #### U LAG #### [facility] [address] [place] [address] 90896 Creatinine mass conc 0.90 mg/dL Normal 0.50-0.90 [facility] Comment on above: Performed By: #### U LAG #### [facility] [address] [place] [address] 77673 GFR, Amer >60 Normal >60 [facility] Comment on above: Performed By: #### U LAG #### [facility] [address] [place] [address] 67223 GFR,non Amer >60 Normal >60 [facility] Comment on above: Performed By: #### U LAG #### [facility] [address] [place] [address] 96628 Glucose mass conc 108 mg/dL High 70-99 [facility] Comment on above: Performed By: #### U LAG #### [facility] [address] [place] [address] 96276 Potassium molar conc 4.6 mmol/L Normal 3.7-5.3 [facility] Comment on above: Performed By: #### U LAG #### [facility] [address] [place] [address] 55527 Protein mass conc 6.9 g/dL Normal 6.4-8.3 [facility] Comment on above: Performed By: #### U LAG #### [facility] [address] [place] [address] 64329 Sodium molar conc 139 mmol/L Normal 135-144 [facility] Comment on above: Performed By: #### U LAG #### [facility] [address] [place] [address] 71330 Urea nitrogen mass conc 17 mg/dL Normal 6-20 [facility] Comment on above: Performed By: #### U LAG #### [facility] [address] [place] [address] 72344 BUN/CRE Ratio NOT REPORTED Normal 9-20 [facility] Comment on above: Performed By: #### U LAG #### [facility] [address] [place] [address]40 Staging: NOT REPORTED Normal [facility] Comment on above: Performed By: #### U LAG #### [facility] [address] [place] [address] 67285 Cult,Bloodon 08-21-2018 Cult,Blood Specimen Description .BLOOD Special Requests L AC 20ML Culture POSITIVE Blood Culture CALLED TO MIS Medina [phone] DIRECT GRAM STAIN FROM BOTTLE: GRAM POSITIVE COCCI IN CLUSTERS METHICILLIN RESISTANT STAPHYLOCOCCUS AUREUS For susceptibility, refer to previous culture. Report Status FINAL 08/21/2018 Normal [facility] Comment on above: Performed By: #### U LAG #### [address] [address] MRI FOOT LEFT W WO CONTRASTo n [...] Murali Goff MD 08/21/18 Final result Normal [facility] Magnesiumon 08-21-2018 Magnesium mass conc 2.4 mg/dL Normal 1.6-2.6 [facility] Comment on above: Performed By: #### U LAG #### [facility] [address] [place], [place] [phone] Procalcitoninon 08-21-2018 Protein mass conc 0.27 ng/mL High <0.09 [facility] Comment on above: Result Comment: Suspected [...] entered into the Change in Procalcitonin Calculator (www.sjhbkj-tcd-kakajijjke.[employer]) to determine the patient's Mortality Risk Prognosis Performed By: #### U LAG #### [facility] [address] [place] [address] 32853 C-Reactive Proteinon 018 CRP mass conc 50.4 mg/L High 0.0-5.0 [facility] Comment on above: Performed By: #### L ACDS, TROPI, PRCAL, MYCM #### [employer] [address] [place] [address] CBC with Diffon 08-20-2018 Abs. Basophil 0.08 k/uL Normal 0.0-0.2 [facility] Comment on above: Performed By: #### L ACDS, TROPI, PRCAL, MYCM #### [employer] [address] [place] [address] 43752 Abs.Imm.Granulocyte 0.42 k/uL High 0.00-0.30 [facility] Comment on above: Performed By: #### L ACDS, TROPI, PRCAL, MYCM #### [employer] [address] [place] [address]157 Abs.Neutrophil (Seg) 4.57 k/uL Normal 1.8-7.7 [facility] Comment on above: Performed By: #### L ACDS, TROPI, PRCAL, MYCM #### [employer] [address] [place] [address] 35297 Basophils/100 WBC (Bld) 1 % Normal 0-2 [facility] Comment on above: Performed By: #### L ACDS, TROPI, PRCAL, MYCM #### [address] [address] Eosinophils #/vol (Bld) 0.25 10*3/uL Normal 0.0-0.4 [facility] Comment on above: Performed By: #### L ACDS, TROPI, PRCAL, MYCM #### [facility] [address] [place] [address] 32841 Eosinophils/100 WBC (Bld) 3 % Normal 1-4 [facility] Comment on above: Performed By: #### L ACDS, TROPI, PRCAL, MYCM #### [address] [address] Immature granulocytes #/vol (Bld) 5 % High 0 [facility] Comment on above: Performed By: #### L ACDS, TROPI, PRCAL, MYCM #### [address] [address] Lymphocytes #/vol (Bld) 2.32 10*3/uL Normal 1.0-4.8 [facility] Comment on above: Performed By: #### L ACDS, TROPI, PRCAL, MYCM #### [address] [address] Lymphocytes/100 WBC (Bld) 28 % Normal 24-44 [facility] Comment on above: Performed By: #### L ACDS, TROPI, PRCAL, MYCM #### [address] [address] Monocytes #/vol (Bld) 0.66 10*3/uL Normal 0.1-0.8 [facility] Comment on above: Performed By: #### L ACDS, TROPI, PRCAL, MYCM #### [facility] [address] [place] [address] 57645 Monocytes/100 WBC (Bld) 8 % High 1-7 [facility] Comment on above: Performed By: #### L ACDS, TROPI, PRCAL, MYCM #### [facility] [address] [place] [address] 80117 Morphology Interp Rehan (Bld) ANISOCYTOSIS PRESENT Normal [facility] Comment on above: Performed By: #### L ACDS, TROPI, PRCAL, MYCM #### [facility] [address] [place] [address] 24859 Neutrophil (Seg) 55 % Normal 36-66 [facility] Comment on above: Performed By: #### L ACDS, TROPI, PRCAL, MYCM #### [facility] [address] [place] [address]134 Erythrocyte distribution width Ratio (RBC) 14.6 % High 11.8-14.4 [facility] Comment on above: Performed By: #### L ACDS, TROPI, PRCAL, MYCM #### [facility] [address] [place] [address]649 Hematocrit Volume Fraction (Bld) 33.5 % Low 36.3-47.1 [facility] Comment on above: Performed By: #### L ACDS, TROPI, PRCAL, MYCM #### [facility] [address] [place] [address]183 Hemoglobin mass conc (Bld) 10.2 g/dL Low 11.9-15.1 [facility] Comment on above: Performed By: #### L ACDS, TROPI, PRCAL, MYCM #### [facility] [address] [place] [address] 33851 MCH Entitic mass (RBC) 27.9 pg Normal 25.2-33.5 [facility] Comment on above: Performed By: #### L ACDS, TROPI, PRCAL, MYCM #### [address] [address] MCHC mass conc (RBC) 30.4 g/dL Normal 28.4-34.8 [facility] Comment on above: Performed By: #### L ACDS, TROPI, PRCAL, MYCM #### [address] [address] MCV Entitic volume (RBC) 91.5 fL Normal 82.6-102.9 [facility] Comment on above: Performed By: #### L ACDS, TROPI, PRCAL, MYCM #### [address] [address] NRBC Automated 0.0 per 100 WBC Normal 0.0 [facility] Comment on above: Performed By: #### L ACDS, TROPI, PRCAL, MYCM #### [address] [address] Platelet mean volume Entitic volume (Bld) 11.0 fL Normal 8.1-13.5 [facility] Comment on above: Performed By: #### L ACDS, TROPI, PRCAL, MYCM #### [address] [address] Platelets #/vol (Bld) 211 10*3/uL Normal 138-453 [facility] Comment on above: Performed By: #### L ACDS, TROPI, PRCAL, MYCM #### [address] [address] RBC #/vol (Bld) 3.66 10*6/uL Low 3.95-5.11 [facility] Comment on above: Performed By: #### L ACDS, TROPI, PRCAL, MYCM #### [address] [address] WBC #/vol (Bld) 8.3 10*3/uL Normal 3.5-11.3 [facility] Comment on above: Performed By: #### L ACDS, TROPI, PRCAL, MYCM #### [address] [address] Auto Diff Performed NOT REPORTED Normal [facility] Comment on above: Performed By: #### L ACDS, TROPI, PRCAL, MYCM #### [address] [address] Platelets #/vol (Bld) NOT REPORTED Normal [facility] Comment on above: Performed By: #### L ACDS, TROPI, PRCAL, MYCM #### [address] [address] RBC morphology finding Nom (Bld) NOT REPORTED Normal [facility] Comment on above: Performed By: #### L ACDS, TROPI, PRCAL, MYCM #### [address] [address] WBC Morphology NOT REPORTED Normal [facility] Comment on above: Performed By: #### L ACDS, TROPI, PRCAL, MYCM #### [address] [address] Comp Metabolic Pr/rfx MGon 1 10-20-2017 (cont.) Normal [facility] Comment on above: Result Comment: Aver age GFR for 30-39 years old: 107 mL/min/1.73sq m Chronic Kidney Disease: <60 mL/min/1.73sq m Kidney failure: <15 mL/min/1.73sq m eGFR calculated using average adult body mass. Additional eGFR calculator available at: http://www.[employer]/multiple_crcl_2011.htm Performed By: #### L ACDS, TROPI, PRCAL, MYCM #### [facility] [address] [place] [address] 61280 Albumin mass conc 3.1 g/dL Low 3.5-5.2 [facility] Comment on above: Performed By: #### L ACDS, TROPI, PRCAL, MYCM #### [facility] [address] [place] [address]1978 Albumin/Globulin mass ratio 0.9 {ratio} Low 1.0-2.5 [facility] Comment on above: Performed By: #### L ACDS, TROPI, PRCAL, MYCM #### [facility] [address] [place] [address] 12449 Alkaline Phos 83 U/L Normal 35-104 [facility] Comment on above: Performed By: #### L ACDS, TROPI, PRCAL, MYCM #### [facility] [address] [place] [address] 99772 ALT enzyme act/vol 17 U/L Normal 5-33 [facility] Comment on above: Performed By: #### L ACDS, TROPI, PRCAL, MYCM #### [facility] [address] [place] [address] 35618 Anion gap molar conc 11 mmol/L Normal 9-17 [facility] Comment on above: Performed By: #### L ACDS, TROPI, PRCAL, MYCM #### [facility] [address] [place] [address] 78477 AST enzyme act/vol 18 U/L Normal <32 [facility] Comment on above: Performed By: #### L ACDS, TROPI, PRCAL, MYCM #### [facility] [address] [place] [address] 11120 Bilirubin Ql (U) 0.29 mg/dL Low 0.3-1.2 [facility] Comment on above: Performed By: #### L ACDS, TROPI, PRCAL, MYCM #### [facility] [address] [place] [address] 33115 Calcium mass conc 9.0 mg/dL Normal 8.6-10.4 [facility] Comment on above: Performed By: #### L ACDS, TROPI, PRCAL, MYCM #### [facility] [address] [place] [address] 04164 Chloride molar conc 101 mmol/L Normal 98-107 [facility] Comment on above: Performed By: #### L ACDS, TROPI, PRCAL, MYCM #### [facility] [address] [place] [address] 62838 CO2 molar conc 27 mmol/L Normal 20-31 [facility] Comment on above: Performed By: #### L ACDS, TROPI, PRCAL, MYCM #### [facility] [address] [place] [address] 20806 Creatinine mass conc 0.97 mg/dL High 0.50-0.90 [facility] Comment on above: Performed By: #### L ACDS, TROPI, PRCAL, MYCM #### [facility] [address] [place] [address] 54735 GFR, Amer >60 Normal >60 [facility] Comment on above: Performed By: #### L ACDS, TROPI, PRCAL, MYCM #### [facility] [address] [place] [address] 94106 GFR,non Amer >60 Normal >60 [facility] Comment on above: Performed By: #### L ACDS, TROPI, PRCAL, MYCM #### [facility] [address] [place] [address] 32136 Glucose mass conc 105 mg/dL High 70-99 [facility] Comment on above: Performed By: #### L ACDS, TROPI, PRCAL, MYCM #### [facility] [address] [place] [address] 22484 Potassium molar conc 4.4 mmol/L Normal 3.7-5.3 [facility] Comment on above: Performed By: #### L ACDS, TROPI, PRCAL, MYCM #### [facility] [address] [place] [address] 47231 Protein mass conc 6.6 g/dL Normal 6.4-8.3 [facility] Comment on above: Performed By: #### L ACDS, TROPI, PRCAL, MYCM #### [facility] [address] [place] [address] 99971 Sodium molar conc 139 mmol/L Normal 135-144 [facility] Comment on above: Performed By: #### L ACDS, TROPI, PRCAL, MYCM #### [facility] [address] [place] [address] 74331 Urea nitrogen mass conc 15 mg/dL Normal 6-20 [facility] Comment on above: Performed By: #### L ACDS, TROPI, PRCAL, MYCM #### [facility] [address] [place] [address] 43396 BUN/CRE Ratio NOT REPORTED Normal -20 [facility] Comment on above: Performed By: #### L ACDS, TROPI, PRCAL, MYCM #### [facility] [address] [place] [address] 38179 Staging: NOT REPORTED Normal [facility] Comment on above: Performed By: #### L ACDS, TROPI, PRCAL, MYCM #### [facility] [address] [place] [address] 93209 Magnesiumon 08-20-2018 Magnesium mass conc 2.2 mg/dL Normal 1.6-2.6 [facility] Comment on above: Performed By: #### L ACDS, TROPI, PRCAL, MYCM #### [facility] [address] [place] [address] 97707 Sedimentation Rateon 018 Sedimentation Rate 100 mm High 0-20 [facility] Comment on above: Performed By: #### L ACDS, TROPI, PRCAL, MYCM #### [address] [address] XR FOOT LEFT (MIN 3 VIEWS)on 08-20-2018 [...] Andrey Angelo MD 08/20/18 Final result Normal [facility] CBC with Diffon 08-19-2018 Abs. Basophil 0.00 k/uL Normal 0.0-0.2 [facility] Comment on above: Performed By: #### L ACDS, TROPI, PRCAL, MYCM #### [facility] [address] [place] [address] 40155 Abs.Imm.Granulocyte 0.42 k/uL High 0.00-0.30 [facility] Comment on above: Performed By: #### L ACDS, TROPI, PRCAL, MYCM #### [facility] [address] [place] [address] 11475 Abs.Neutrophil (Seg) 2.70 k/uL Normal 1.8-7.7 [facility] Comment on above: Performed By: #### L ACDS, TROPI, PRCAL, MYCM #### [facility] [address] [place] [address] 93868 Basophils/100 WBC (Bld) 0 % Normal 0-2 [facility] Comment on above: Performed By: #### L ACDS, TROPI, PRCAL, MYCM #### [address] [address] Eosinophils #/vol (Bld) 0.30 10*3/uL Normal 0.0-0.4 [facility] Comment on above: Performed By: #### L ACDS, TROPI, PRCAL, MYCM #### [address] [address] Eosinophils/100 WBC (Bld) 5 % High 1-4 [facility] Comment on above: Performed By: #### L ACDS, TROPI, PRCAL, MYCM #### [address] [address] Immature granulocytes #/vol (Bld) 7 % High 0 [facility] Comment on above: Performed By: #### L ACDS, TROPI, PRCAL, MYCM #### [address] [address] Lymphocytes #/vol (Bld) 2.22 10*3/uL Normal 1.0-4.8 [facility] Comment on above: Performed By: #### L ACDS, TROPI, PRCAL, MYCM #### [address] [address] Lymphocytes/100 WBC (Bld) 37 % Normal 24-44 [facility] Comment on above: Performed By: #### L ACDS, TROPI, PRCAL, MYCM #### [address] [address] Monocytes #/vol (Bld) 0.36 10*3/uL Normal 0.1-0.8 [facility] Comment on above: Performed By: #### L ACDS, TROPI, PRCAL, MYCM #### [facility] [address] [place] [address] 91906 Monocytes/100 WBC (Bld) 6 % Normal 1-7 [facility] Comment on above: Performed By: #### L ACDS, TROPI, PRCAL, MYCM #### [facility] [address] [place] [address] 37239 Morphology Interp Rehan (Bld) ANISOCYTOSIS PRESENT Normal [facility] Comment on above: Performed By: #### L ACDS, TROPI, PRCAL, MYCM #### [facility] [address] [place] [address] 53348 Neutrophil (Seg) 45 % Normal 36-66 [facility] Comment on above: Performed By: #### L ACDS, TROPI, PRCAL, MYCM #### [facility] [address] [place] [address] 54865 Erythrocyte distribution width Ratio (RBC) 14.6 % High 11.8-14.4 [facility] Comment on above: Performed By: #### L ACDS, TROPI, PRCAL, MYCM #### [facility] [address] [place] [address] 53867 Hematocrit Volume Fraction (Bld) 34.4 % Low 36.3-47.1 [facility] Comment on above: Performed By: #### L ACDS, TROPI, PRCAL, MYCM #### [facility] [address] [place] [address] 86085 Hemoglobin mass conc (Bld) 10.4 g/dL Low 11.9-15.1 [facility] Comment on above: Performed By: #### L ACDS, TROPI, PRCAL, MYCM #### [facility] [address] [place] [address] 43790 MCH Entitic mass (RBC) 28.0 pg Normal 25.2-33.5 [facility] Comment on above: Performed By: #### L ACDS, TROPI, PRCAL, MYCM #### [address] [address] MCHC mass conc (RBC) 30.2 g/dL Normal 28.4-34.8 [facility] Comment on above: Performed By: #### L ACDS, TROPI, PRCAL, MYCM #### [address] [address] MCV Entitic volume (RBC) 92.7 fL Normal 82.6-102.9 [facility] Comment on above: Performed By: #### L ACDS, TROPI, PRCAL, MYCM #### [address] [address] NRBC Automated 0.3 per 100 WBC High 0.0 [facility] Comment on above: Performed By: #### L ACDS, TROPI, PRCAL, MYCM #### [address] [address] Platelet mean volume Entitic volume (Bld) 10.5 fL Normal 8.1-13.5 [facility] Comment on above: Performed By: #### L ACDS, TROPI, PRCAL, MYCM #### [address] [address] Platelets #/vol (Bld) 168 10*3/uL Normal 138-453 [facility] Comment on above: Performed By: #### L ACDS, TROPI, PRCAL, MYCM #### [address] [address] RBC #/vol (Bld) 3.71 10*6/uL Low 3.95-5.11 [facility] Comment on above: Performed By: #### L ACDS, TROPI, PRCAL, MYCM #### [address] [address] WBC #/vol (Bld) 6.0 10*3/uL Normal 3.5-11.3 [facility] Comment on above: Performed By: #### L ACDS, TROPI, PRCAL, MYCM #### [address] [address] Auto Diff Performed NOT REPORTED Normal [facility] Comment on above: Performed By: #### L ACDS, TROPI, PRCAL, MYCM #### [address] [address] Platelets #/vol (Bld) NOT REPORTED Normal [facility] Comment on above: Performed By: #### L ACDS, TROPI, PRCAL, MYCM #### [facility] [address] [place] [address] 85694 RBC morphology finding Nom (Bld) NOT REPORTED Normal [facility] Comment on above: Performed By: #### L ACDS, TROPI, PRCAL, MYCM #### [address] [address] WBC Morphology NOT REPORTED Normal [facility] Comment on above: Performed By: #### L ACDS, TROPI, PRCAL, MYCM #### [facility] [address] [place] [address] 08234 Comp Metabolic Pr/rfx MGon 1 10-19-2017 (cont.) Normal [facility] Comment on above: Result Comment: Aver age GFR for 30-39 years old: 107 mL/min/1.73sq m Chronic Kidney Disease: <60 mL/min/1.73sq m Kidney failure: <15 mL/min/1.73sq m eGFR calculated using average adult body mass. Additional eGFR calculator available at: http://www.[employer]/multiple_crcl_2011.htm Performed By: #### L ACDS, TROPI, PRCAL, MYCM #### [facility] [address] [place] [address] 25775 Albumin mass conc 2.7 g/dL Low 3.5-5.2 [facility] Comment on above: Performed By: #### L ACDS, TROPI, PRCAL, MYCM #### [facility] [address] [place] [address] 06444 Albumin/Globulin mass ratio 0.8 {ratio} Low 1.0-2.5 [facility] Comment on above: Performed By: #### L ACDS, TROPI, PRCAL, MYCM #### [facility] [address] [place] [address] 25473 Alkaline Phos 78 U/L Normal 35-104 [facility] Comment on above: Performed By: #### L ACDS, TROPI, PRCAL, MYCM #### [facility] [address] [place] [address] 53570 ALT enzyme act/vol 16 U/L Normal 5-33 [facility] Comment on above: Performed By: #### L ACDS, TROPI, PRCAL, MYCM #### [facility] [address] [place] [address] 07140 Anion gap molar conc 10 mmol/L Normal 9-17 [facility] Comment on above: Performed By: #### L ACDS, TROPI, PRCAL, MYCM #### [facility] [address] [place] [address] 35253 AST enzyme act/vol 16 U/L Normal <32 [facility] Comment on above: Performed By: #### L ACDS, TROPI, PRCAL, MYCM #### [facility] [address] [place] [address] 10507 Bilirubin Ql (U) 0.21 mg/dL Low 0.3-1.2 [facility] Comment on above: Performed By: #### L ACDS, TROPI, PRCAL, MYCM #### [facility] [address] [place] [address] 17790 Calcium mass conc 8.5 mg/dL Low 8.6-10.4 [facility] Comment on above: Performed By: #### L ACDS, TROPI, PRCAL, MYCM #### [facility] [address] [place] [address] 98902 Chloride molar conc 103 mmol/L Normal 98-107 [facility] Comment on above: Performed By: #### L ACDS, TROPI, PRCAL, MYCM #### [facility] [address] [place] [address] 39154 CO2 molar conc 24 mmol/L Normal 20-31 [facility] Comment on above: Performed By: #### L ACDS, TROPI, PRCAL, MYCM #### [facility] [address] [place] [address] 36872 Creatinine mass conc 0.88 mg/dL Normal 0.50-0.90 [facility] Comment on above: Performed By: #### L ACDS, TROPI, PRCAL, MYCM #### [facility] [address] [place] [address] 47411 GFR, Amer >60 Normal >60 [facility] Comment on above: Performed By: #### L ACDS, TROPI, PRCAL, MYCM #### [facility] [address] [place] [address] 26210 GFR,non Amer >60 Normal >60 [facility] Comment on above: Performed By: #### L ACDS, TROPI, PRCAL, MYCM #### [facility] [address] [place] [address] 60579 Glucose mass conc 104 mg/dL High 70-99 [facility] Comment on above: Performed By: #### L ACDS, TROPI, PRCAL, MYCM #### [facility] [address] [place] [address] 78719 Potassium molar conc 4.0 mmol/L Normal 3.7-5.3 [facility] Comment on above: Performed By: #### L ACDS, TROPI, PRCAL, MYCM #### [facility] [address] [place] [address] 73952 Protein mass conc 6.3 g/dL Low 6.4-8.3 [facility] Comment on above: Performed By: #### L ACDS, TROPI, PRCAL, MYCM #### [facility] [address] [place] [address] 60216 Sodium molar conc 137 mmol/L Normal 135-144 [facility] Comment on above: Performed By: #### L ACDS, TROPI, PRCAL, MYCM #### [facility] [address] [place] [address] 15405 Urea nitrogen mass conc 16 mg/dL Normal -20 [facility] Comment on above: Performed By: #### L ACDS, TROPI, PRCAL, MYCM #### [facility] [address] [place] [address] 17394 BUN/CRE Ratio NOT REPORTED Normal -20 [facility] Comment on above: Performed By: #### L ACDS, TROPI, PRCAL, MYCM #### [facility] [address] [place] [address]120 Staging: NOT REPORTED Normal [facility] Comment on above: Performed By: #### L ACDS, TROPI, PRCAL, MYCM #### [facility] [address] [place] [address] 08553 Cult, Bloodon 08-19-2018 Cult, Blood Specimen Description [...] Trimethoprim/Sulfa <=10 SUSCEPTIBLE Vancomycin 1 SUSCEPTIBLE Normal [facility] Comment on above: Performed By: #### L ACDS, TROPI, PRCAL, MYCM #### [employer] [facility] [place] [address] MRI CERVICAL SPINE W WO CONT RASTon [...] Bo Rodrigues MD 08/19/18 Final result Normal [facility] MRI LUMBAR SPINE W WO CONTRA STon [...] Bo Rodrigues MD 08/19/18 Final result Normal [facility] MRI THORACIC SPINE W WO CONT Arianna [...] Bo Rodrigues MD 08/19/18 Final result Normal [facility] Magnesiumon 08-19-2018 Magnesium mass conc 2.3 mg/dL Normal 1.6-2.6 [facility] Comment on above: Performed By: #### L ACDS, TROPI, PRCAL, MYCM #### [employer] [address] [place] [address] Procalcitoninon 08-19-2018 Protein mass conc 0.57 ng/mL High <0.09 [facility] Comment on above: Result Comment: Suspected [...] entered into the Change in Procalcitonin Calculator ([email or web address]-grs-onynshdsrz.com) to determine the patient's Mortality Risk Prognosis Performed By: #### L ACDS, TROPI, PRCAL, MYCM #### [address] [address] CBC with Diffon 08-18-2018 Abs. Basophil <0.03 Normal 0.00-0.20 [facility] Comment on above: Performed By: #### L ACDS, TROPI, PRCAL, MYCM #### [facility] [address] [place] [address] 16136 Abs.Imm.Granulocyte 0.28 k/uL Normal 0.00-0.30 [facility] Comment on above: Performed By: #### L ACDS, TROPI, PRCAL, MYCM #### [facility] [address] [place] [address] 82668 Abs.Neutrophil (Seg) 3.23 k/uL Normal 1.50-8.10 [facility] Comment on above: Performed By: #### L ACDS, TROPI, PRCAL, MYCM #### [facility] [address] [place] [address] 37554 Basophils/100 WBC (Bld) 0 % Normal 0-2 [facility] Comment on above: Performed By: #### L ACDS, TROPI, PRCAL, MYCM #### [facility] [address] [place] [address] 16852 Eosinophils #/vol (Bld) 0.15 10*3/uL Normal 0.00-0.44 [facility] Comment on above: Performed By: #### L ACDS, TROPI, PRCAL, MYCM #### [facility] [address] [place] [address] 68694 Eosinophils/100 WBC (Bld) 3 % Normal 1-4 [facility] Comment on above: Performed By: #### L ACDS, TROPI, PRCAL, MYCM #### [facility] [address] [place] [address] 37899 Erythrocyte distribution width Ratio (RBC) 14.7 % High 11.8-14.4 [facility] Comment on above: Performed By: #### L ACDS, TROPI, PRCAL, MYCM #### [address] [address] Hematocrit Volume Fraction (Bld) 32.7 % Low 36.3-47.1 [facility] Comment on above: Performed By: #### L ACDS, TROPI, PRCAL, MYCM #### [facility] [address] [place] [address] 10540 Hemoglobin mass conc (Bld) 10.1 g/dL Low 11.9-15.1 [facility] Comment on above: Performed By: #### L ACDS, TROPI, PRCAL, MYCM #### [address] [address] Immature granulocytes #/vol (Bld) 5 % High 0 [facility] Comment on above: Performed By: #### L ACDS, TROPI, PRCAL, MYCM #### [address] [address] Lymphocytes #/vol (Bld) 1.58 10*3/uL Normal 1.10-3.70 [facility] Comment on above: Performed By: #### L ACDS, TROPI, PRCAL, MYCM #### [address] [address] Lymphocytes/100 WBC (Bld) 28 % Normal 24-43 [facility] Comment on above: Performed By: #### L ACDS, TROPI, PRCAL, MYCM #### [facility] [address] [place] [address] 80127 MCH Entitic mass (RBC) 28.2 pg Normal 25.2-33.5 [facility] Comment on above: Performed By: #### L ACDS, TROPI, PRCAL, MYCM #### [address] [address] MCHC mass conc (RBC) 30.9 g/dL Normal 28.4-34.8 [facility] Comment on above: Performed By: #### L ACDS, TROPI, PRCAL, MYCM #### [address] [address] MCV Entitic volume (RBC) 91.3 fL Normal 82.6-102.9 [facility] Comment on above: Performed By: #### L ACDS, TROPI, PRCAL, MYCM #### [address] [address] Monocytes #/vol (Bld) 0.47 10*3/uL Normal 0.10-1.20 [facility] Comment on above: Performed By: #### L ACDS, TROPI, PRCAL, MYCM #### [address] [address] Monocytes/100 WBC (Bld) 8 % Normal 3-12 [facility] Comment on above: Performed By: #### L ACDS, TROPI, PRCAL, MYCM #### [address] [address] Neutrophil (Seg) 56 % Normal 36-65 [facility] Comment on above: Performed By: #### L ACDS, TROPI, PRCAL, MYCM #### [address] [address] NRBC Automated 0.0 per 100 WBC Normal 0.0 [facility] Comment on above: Performed By: #### L ACDS, TROPI, PRCAL, MYCM #### [facility] [address] [place] [address]36 Platelet mean volume Entitic volume (Bld) 11.4 fL Normal 8.1-13.5 [facility] Comment on above: Performed By: #### L ACDS, TROPI, PRCAL, MYCM #### [address] [address] Platelets #/vol (Bld) 153 10*3/uL Normal 138-453 [facility] Comment on above: Performed By: #### L ACDS, TROPI, PRCAL, MYCM #### [address] [address] RBC #/vol (Bld) 3.58 10*6/uL Low 3.95-5.11 [facility] Comment on above: Performed By: #### L ACDS, TROPI, PRCAL, MYCM #### [address] [address] RBC morphology finding Nom (Bld) ANISOCYTOSIS PRESENT Normal [facility] Comment on above: Performed By: #### L ACDS, TROPI, PRCAL, MYCM #### [address] [address] WBC #/vol (Bld) 5.7 10*3/uL Normal 3.5-11.3 [facility] Comment on above: Performed By: #### L ACDS, TROPI, PRCAL, MYCM #### [address] [address] Auto Diff Performed NOT REPORTED Normal [facility] Comment on above: Performed By: #### L ACDS, TROPI, PRCAL, MYCM #### [address] [address] Platelets #/vol (Bld) NOT REPORTED Normal [facility] Comment on above: Performed By: #### L ACDS, TROPI, PRCAL, MYCM #### [address] [id number] WBC Morphology NOT REPORTED Normal [facility] Comment on above: Performed By: #### L ACDS, TROPI, PRCAL, MYCM #### [facility] [address] [place] [address] Comp Metabolic Pr/rfx MGon 1 10-18-2017 (cont.) Normal [facility] Comment on above: Result Comment: Aver age GFR for 30-39 years old: 107 mL/min/1.73sq m Chronic Kidney Disease: <60 mL/min/1.73sq m Kidney failure: <15 mL/min/1.73sq m eGFR calculated using average adult body mass. Additional eGFR calculator available at: http://www.[employer]/multiple_crcl_2011.htm Performed By: #### L ACDS, TROPI, PRCAL, MYCM #### [employer] [address] [place] [address] 34678 Albumin mass conc 2.7 g/dL Low 3.5-5.2 [facility] Comment on above: Performed By: #### L ACDS, TROPI, PRCAL, MYCM #### [employer] [address] [place] [address] [phone] Albumin/Globulin mass ratio 0.8 {ratio} Low 1.0-2.5 [facility] Comment on above: Performed By: #### L ACDS, TROPI, PRCAL, MYCM #### [employer] [address] [place] [address] 35763 Alkaline Phos 82 U/L Normal 35-104 [facility] Comment on above: Performed By: #### L ACDS, TROPI, PRCAL, MYCM #### [employer] [address] [place] [address] [phone] ALT enzyme act/vol 19 U/L Normal 5-33 [facility] Comment on above: Performed By: #### L ACDS, TROPI, PRCAL, MYCM #### [facility] [address] [place] [address] 88670 Anion gap molar conc 8 mmol/L Low 9-17 [facility] Comment on above: Performed By: #### L ACDS, TROPI, PRCAL, MYCM #### [facility] [address] [place] [address] 77321 AST enzyme act/vol 17 U/L Normal <32 [facility] Comment on above: Performed By: #### L ACDS, TROPI, PRCAL, MYCM #### [facility] [address] [place] [address] 69254 Bilirubin Ql (U) 0.24 mg/dL Low 0.3-1.2 [facility] Comment on above: Performed By: #### L ACDS, TROPI, PRCAL, MYCM #### [facility] [address] [place] [address] 96705 Calcium mass conc 8.2 mg/dL Low 8.6-10.4 [facility] Comment on above: Performed By: #### L ACDS, TROPI, PRCAL, MYCM #### [facility] [address] [place] [address] 64727 Chloride molar conc 103 mmol/L Normal 98-107 [facility] Comment on above: Performed By: #### L ACDS, TROPI, PRCAL, MYCM #### [facility] [address] [place] [address] 00871 CO2 molar conc 25 mmol/L Normal 20-31 [facility] Comment on above: Performed By: #### L ACDS, TROPI, PRCAL, MYCM #### [facility] [address] [place] [address] 52385 Creatinine mass conc 0.94 mg/dL High 0.50-0.90 [facility] Comment on above: Performed By: #### L ACDS, TROPI, PRCAL, MYCM #### [facility] [address] [place] [address] 69534 GFR, Amer >60 Normal >60 [facility] Comment on above: Performed By: #### L ACDS, TROPI, PRCAL, MYCM #### [facility] [address] [place] [address] 98470 GFR,non Amer >60 Normal >60 [facility] Comment on above: Performed By: #### L ACDS, TROPI, PRCAL, MYCM #### [address] [address] Glucose mass conc 107 mg/dL High 70-99 [facility] Comment on above: Performed By: #### L ACDS, TROPI, PRCAL, MYCM #### [address] [address] Potassium molar conc 4.1 mmol/L Normal 3.7-5.3 [facility] Comment on above: Performed By: #### L ACDS, TROPI, PRCAL, MYCM #### [address] [address] Protein mass conc 6.2 g/dL Low 6.4-8.3 [facility] Comment on above: Performed By: #### L ACDS, TROPI, PRCAL, MYCM #### [facility] [address] [place] [address] 77887 Sodium molar conc 136 mmol/L Normal 135-144 [facility] Comment on above: Performed By: #### L ACDS, TROPI, PRCAL, MYCM #### [facility] [address] [place] [address] 80553 Urea nitrogen mass conc 14 mg/dL Normal 6-20 [facility] Comment on above: Performed By: #### L ACDS, TROPI, PRCAL, MYCM #### [facility] [address] [place] [address] 51767 BUN/CRE Ratio NOT REPORTED Normal 06-24 [facility] Comment on above: Performed By: #### L ACDS, TROPI, PRCAL, MYCM #### [employer] [address] [place] [address] 07096 Staging: NOT REPORTED Normal [facility] Comment on above: Performed By: #### L ACDS, TROPI, PRCAL, MYCM #### [facility] [address] [place] [address] 58973 Magnesiumon 08-18-2018 Magnesium mass conc 2.3 mg/dL Normal 1.6-2.6 [facility] Comment on above: Performed By: #### L ACDS, TROPI, PRCAL, MYCM #### [facility] [address] [place] [address] 28139 Vancomycin Troughon 08-18-20 18 Vancomycin Trough 14.7 ug/mL Normal 10.0-20.0 [facility] Comment on above: Result Comment: High er trough serum vancomycin concentrations of 15-20 ug/mL are recommended for complicated infections such as bacteremia, endocarditis, osteomyelitis, meningitis, and hospital acquired pneumonia. Performed By: #### L ACDS, TROPI, PRCAL, MYCM #### [employer] [address] [place] [address] 76684 Date last dose, NOT REPORTED Normal [facility] Comment on above: Performed By: #### L ACDS, TROPI, PRCAL, MYCM #### [employer] [address] [place] [address] 95667 Dose amount, NOT REPORTED Normal [facility] Comment on above: Performed By: #### L ACDS, TROPI, PRCAL, MYCM #### [employer] [address] [place] [address] 07654 Time last dose, NOT REPORTED Normal [facility] Comment on above: Performed By: #### L ACDS, TROPI, PRCAL, MYCM #### [address] [address] C-Reactive Proteinon 018 CRP mass conc 188.1 mg/L High 0.0-5.0 [facility] Comment on above: Performed By: #### L ACDS, TROPI, PRCAL, MYCM #### [address] [address] CBC with Diffon 08-17-2018 Abs. Basophil 0.00 k/uL Normal 0.0-0.2 [facility] Comment on above: Performed By: #### L ACDS, TROPI, PRCAL, MYCM #### [address] [address] Abs.Imm.Granulocyte 0.13 k/uL Normal 0.00-0.30 [facility] Comment on above: Performed By: #### L ACDS, TROPI, PRCAL, MYCM #### [address] [address] Abs.Neutrophil (Seg) 4.35 k/uL Normal 1.8-7.7 [facility] Comment on above: Performed By: #### L ACDS, TROPI, PRCAL, MYCM #### [facility] [address] [place] [address] 34642 Basophils/100 WBC (Bld) 0 % Normal 0-2 [facility] Comment on above: Performed By: #### L ACDS, TROPI, PRCAL, MYCM #### [facility] [address] [place] [address] 23063 Eosinophils #/vol (Bld) 0.06 10*3/uL Normal 0.0-0.4 [facility] Comment on above: Performed By: #### L ACDS, TROPI, PRCAL, MYCM #### [address] [address] Eosinophils/100 WBC (Bld) 1 % Normal 1-4 [facility] Comment on above: Performed By: #### L ACDS, TROPI, PRCAL, MYCM #### [address] [address] Immature granulocytes #/vol (Bld) 2 % High 0 [facility] Comment on above: Performed By: #### L ACDS, TROPI, PRCAL, MYCM #### [address] [address] Lymphocytes #/vol (Bld) 1.32 10*3/uL Normal 1.0-4.8 [facility] Comment on above: Performed By: #### L ACDS, TROPI, PRCAL, MYCM #### [address] [address] Lymphocytes/100 WBC (Bld) 21 % Low 24-44 [facility] Comment on above: Performed By: #### L ACDS, TROPI, PRCAL, MYCM #### [address] [address] Monocytes #/vol (Bld) 0.44 10*3/uL Normal 0.1-0.8 [facility] Comment on above: Performed By: #### L ACDS, TROPI, PRCAL, MYCM #### [address] [address] Monocytes/100 WBC (Bld) 7 % Normal 1-7 [facility] Comment on above: Performed By: #### L ACDS, TROPI, PRCAL, MYCM #### [address] [address] Morphology Interp Rehan (Bld) ANISOCYTOSIS PRESENT Normal [facility] Comment on above: Result Comment: INCR EASED BANDS PRESENT 1+ TEARDROPS Performed By: #### L ACDS, TROPI, PRCAL, MYCM #### [facility] [address] [place] [address] 63440 Neutrophil (Seg) 69 % High 36-66 [facility] Comment on above: Performed By: #### L ACDS, TROPI, PRCAL, MYCM #### [facility] [address] [place] [address] 13329 Erythrocyte distribution width Ratio (RBC) 14.8 % High 11.8-14.4 [facility] Comment on above: Performed By: #### L ACDS, TROPI, PRCAL, MYCM #### [facility] [address] [place] [address] 32999 Hematocrit Volume Fraction (Bld) 33.3 % Low 36.3-47.1 [facility] Comment on above: Performed By: #### L ACDS, TROPI, PRCAL, MYCM #### [facility] [facility] [address] [place] [address] 98231 Hemoglobin mass conc (Bld) 10.2 g/dL Low 11.9-15.1 [facility] Comment on above: Performed By: #### L ACDS, TROPI, PRCAL, MYCM #### [facility] [address] [place] [address] 08444 MCH Entitic mass (RBC) 28.3 pg Normal 25.2-33.5 [facility] Comment on above: Performed By: #### L ACDS, TROPI, PRCAL, MYCM #### [facility] [address] [place] [address] 46134 MCHC mass conc (RBC) 30.6 g/dL Normal 28.4-34.8 [facility] Comment on above: Performed By: #### L ACDS, TROPI, PRCAL, MYCM #### [address] [address] MCV Entitic volume (RBC) 92.2 fL Normal 82.6-102.9 [facility] Comment on above: Performed By: #### L ACDS, TROPI, PRCAL, MYCM #### [address] [address] NRBC Automated 0.0 per 100 WBC Normal 0.0 [facility] Comment on above: Performed By: #### L ACDS, TROPI, PRCAL, MYCM #### [address] [address] Platelet mean volume Entitic volume (Bld) 11.5 fL Normal 8.1-13.5 [facility] Comment on above: Performed By: #### L ACDS, TROPI, PRCAL, MYCM #### [address] [address] Platelets #/vol (Bld) 149 10*3/uL Normal 138-453 Me [facility] Comment on above: Performed By: #### L ACDS, TROPI, PRCAL, MYCM #### [address] [address] RBC #/vol (Bld) 3.61 10*6/uL Low 3.95-5.11 [facility] Comment on above: Performed By: #### L ACDS, TROPI, PRCAL, MYCM #### [address] [address] WBC #/vol (Bld) 6.3 10*3/uL Normal 3.5-11.3 [facility] Comment on above: Performed By: #### L ACDS, TROPI, PRCAL, MYCM #### [address] [address] Auto Diff Performed NOT REPORTED Normal [facility] Comment on above: Performed By: #### L ACDS, TROPI, PRCAL, MYCM #### [address] [address] Platelets #/vol (Bld) NOT REPORTED Normal M [facility] Comment on above: Performed By: #### L ACDS, TROPI, PRCAL, MYCM #### [address] [address] RBC morphology finding Nom (Bld) NOT REPORTED Normal [facility] Comment on above: Performed By: #### L ACDS, TROPI, PRCAL, MYCM #### [address] [address] WBC Morphology NOT REPORTED Normal [facility] Comment on above: Performed By: #### L ACDS, TROPI, PRCAL, MYCM #### [address] [address] Comp Metabolic Pr/rfx MGon 1 10-17-2017 (cont.) Normal [facility] Comment on above: Result Comment: Aver age GFR for 30-39 years old: 107 mL/min/1.73sq m Chronic Kidney Disease: <60 mL/min/1.73sq m Kidney failure: <15 mL/min/1.73sq m eGFR calculated using average adult body mass. Additional eGFR calculator available at: http://www.[employer] R Interactive.Sensity Systems/multiple_crcl_2012.htm Performed By: #### L ACDS, TROPI, PRCAL, MYCM #### [address] [address]186 Albumin mass conc 2.4 g/dL Low 3.5-5.2 [facility] Comment on above: Performed By: #### L ACDS, TROPI, PRCAL, MYCM #### [address] [address] Albumin/Globulin mass ratio 0.7 {ratio} Low 1.0-2.5 [facility] Comment on above: Performed By: #### L ACDS, TROPI, PRCAL, MYCM #### [facility] [address] [place] [address] 11442 Alkaline Phos 76 U/L Normal 35-104 [facility] Comment on above: Performed By: #### L ACDS, TROPI, PRCAL, MYCM #### [facility] [address] [place] [address] 41061 ALT enzyme act/vol 25 U/L Normal 5-33 [facility] Comment on above: Performed By: #### L ACDS, TROPI, PRCAL, MYCM #### [facility] [address] [place] [address] 26020 Anion gap molar conc 8 mmol/L Low 9-17 [facility] Comment on above: Performed By: #### L ACDS, TROPI, PRCAL, MYCM #### [facility] [address] [place] [address] 41070 AST enzyme act/vol 26 U/L Normal <32 [facility] Comment on above: Performed By: #### L ACDS, TROPI, PRCAL, MYCM #### [facility] [address] [place] [address] 11078 Bilirubin Ql (U) 0.34 mg/dL Normal 0.3-1.2 [facility] Comment on above: Performed By: #### L ACDS, TROPI, PRCAL, MYCM #### [facility] [address] [place] [address] 07762 Calcium mass conc 7.8 mg/dL Low 8.6-10.4 [facility] Comment on above: Performed By: #### L ACDS, TROPI, PRCAL, MYCM #### [address] [address] Chloride molar conc 99 mmol/L Normal 98-107 [facility] Comment on above: Performed By: #### L ACDS, TROPI, PRCAL, MYCM #### [address] [address] CO2 molar conc 23 mmol/L Normal 20-31 [facility] Comment on above: Performed By: #### L ACDS, TROPI, PRCAL, MYCM #### [address] 24845 Creatinine mass conc 1.04 mg/dL High 0.50-0.90 [facility] Comment on above: Performed By: #### L ACDS, TROPI, PRCAL, MYCM #### [address] [address] GFR, Amer >60 Normal >60 [facility] Comment on above: Performed By: #### L ACDS, TROPI, PRCAL, MYCM #### [address] [address] GFR,non Amer 59 mL/min Low >60 [facility] Comment on above: Performed By: #### L ACDS, TROPI, PRCAL, MYCM #### [address] [address] Glucose mass conc 109 mg/dL High 70-99 [facility] Comment on above: Performed By: #### L ACDS, TROPI, PRCAL, MYCM #### [address] 996[address] Potassium molar conc 3.8 mmol/L Normal 3.7-5.3 [facility] Comment on above: Performed By: #### L ACDS, TROPI, PRCAL, MYCM #### [address] [address] Protein mass conc 5.8 g/dL Low 6.4-8.3 [facility] Comment on above: Performed By: #### L ACDS, TROPI, PRCAL, MYCM #### [facility] [address] [place] [address] 35263 Sodium molar conc 130 mmol/L Low 135-144 [facility] Comment on above: Performed By: #### L ACDS, TROPI, PRCAL, MYCM #### [facility] [address] [place] [address] 80932 Urea nitrogen mass conc 15 mg/dL Normal - [facility] Comment on above: Performed By: #### L ACDS, TROPI, PRCAL, MYCM #### [facility] [address] [place] [address] 36624 BUN/CRE Ratio NOT REPORTED Normal 06-24 [facility] Comment on above: Performed By: #### L ACDS, TROPI, PRCAL, MYCM #### [facility] [address] [place] [address] 75150 Staging: NOT REPORTED Normal [facility] Comment on above: Performed By: #### L ACDS, TROPI, PRCAL, MYCM #### [facility] [address] [place] [address] 31875 Magnesiumon 08-17-2018 Magnesium mass conc 2.2 mg/dL Normal 1.6-2.6 [facility] Comment on above: Performed By: #### L ACDS, TROPI, PRCAL, MYCM #### [facility] [address] [place] [address] 39812 Procalcitoninon 08-17-2018 Protein mass conc 1.48 ng/mL High <0.09 [facility] Comment on above: Result Comment: Suspected [...] entered into the Change in Procalcitonin Calculator (www.wemmal-sbd-lvglwsweue.com) to determine the patient's Mortality Risk Prognosis Performed By: #### L ACDS, TROPI, PRCAL, MYCM #### [facility] [address] [place] [address] 42835 Sedimentation Rateon 018 Sedimentation Rate 97 mm High 0-20 [facility] Comment on above: Performed By: #### L ACDS, TROPI, PRCAL, MYCM #### [employer] [address] [place] [address] CBC with Diffon 08-16-2018 Abs. Basophil 0.00 k/uL Normal 0.00-0.20 [facility] Comment on above: Performed By: #### L ACDS, TROPI, PRCAL, MYCM #### [employer] [address] [place] [address] 24460 Abs.Imm.Granulocyte 0.11 k/uL Normal 0.00-0.30 [facility] Comment on above: Performed By: #### L ACDS, TROPI, PRCAL, MYCM #### [employer] [address] [place] [address] 06744 Abs.Neutrophil (Seg) 4.60 k/uL Normal 1.50-8.10 [facility] Comment on above: Performed By: #### L ACDS, TROPI, PRCAL, MYCM #### [facility] [address] [place] [address] 38041 Basophils/100 WBC (Bld) 0 % Normal 0-2 [facility] Comment on above: Performed By: #### L ACDS, TROPI, PRCAL, MYCM #### [address] [address] Eosinophils #/vol (Bld) 0.00 10*3/uL Normal 0.00-0.44 [facility] Comment on above: Performed By: #### L ACDS, TROPI, PRCAL, MYCM #### [address] [address] Eosinophils/100 WBC (Bld) 0 % Low 1-4 [facility] Comment on above: Performed By: #### L ACDS, TROPI, PRCAL, MYCM #### [address] [address] Immature granulocytes #/vol (Bld) 2 % High 0 [facility] Comment on above: Performed By: #### L ACDS, TROPI, PRCAL, MYCM #### [address] [address] Lymphocytes #/vol (Bld) 0.67 10*3/uL Low 1.10-3.70 [facility] Comment on above: Performed By: #### L ACDS, TROPI, PRCAL, MYCM #### [facility] [address] [place] [address] 37690 Lymphocytes/100 WBC (Bld) 12 % Low 24-43 [facility] Comment on above: Performed By: #### L ACDS, TROPI, PRCAL, MYCM #### [address] [address] Monocytes #/vol (Bld) 0.22 10*3/uL Normal 0.10-1.20 [facility] Comment on above: Performed By: #### L ACDS, TROPI, PRCAL, MYCM #### [facility] [address] [place] [address] 64147 Monocytes/100 WBC (Bld) 4 % Normal 3-12 [facility] Comment on above: Performed By: #### L ACDS, TROPI, PRCAL, MYCM #### [facility] [address] [place] [address] 50174 Morphology Interp Rehan (Bld) ANISOCYTOSIS PRESENT Normal [facility] Comment on above: Result Comment: INCR EASED BANDS PRESENT 1+ TEARDROPS Performed By: #### L ACDS, TROPI, PRCAL, MYCM #### [facility] [address] [place] [address] 82045 Neutrophil (Seg) 82 % High 36-65 [facility] Comment on above: Performed By: #### L ACDS, TROPI, PRCAL, MYCM #### [address] [address] Erythrocyte distribution width Ratio (RBC) 15.1 % High 11.8-14.4 [facility] Comment on above: Performed By: #### L ACDS, TROPI, PRCAL, MYCM #### [facility] [address] [place] [address] 19319 Hematocrit Volume Fraction (Bld) 34.1 % Low 36.3-47.1 [facility] Comment on above: Performed By: #### L ACDS, TROPI, PRCAL, MYCM #### [facility] [address] [place] [address] 80501 Hemoglobin mass conc (Bld) 10.0 g/dL Low 11.9-15.1 [facility] Comment on above: Performed By: #### L ACDS, TROPI, PRCAL, MYCM #### [address] [address]85 MCH Entitic mass (RBC) 28.7 pg Normal 25.2-33.5 [facility] Comment on above: Performed By: #### L ACDS, TROPI, PRCAL, MYCM #### [address] [address] MCHC mass conc (RBC) 29.3 g/dL Normal 28.4-34.8 [facility] Comment on above: Performed By: #### L ACDS, TROPI, PRCAL, MYCM #### [address] 10049 MCV Entitic volume (RBC) 98.0 fL Normal 82.6-102.9 [facility] Comment on above: Performed By: #### L ACDS, TROPI, PRCAL, MYCM #### [address] [address]146 NRBC Automated 0.0 per 100 WBC Normal 0.0 [facility] Comment on above: Performed By: #### L ACDS, TROPI, PRCAL, MYCM #### [address] [address] Platelet mean volume Entitic volume (Bld) 11.1 fL Normal 8.1-13.5 [facility] Comment on above: Performed By: #### L ACDS, TROPI, PRCAL, MYCM #### [address] [address] Platelets #/vol (Bld) 119 10*3/uL Low 138-453 Me [facility] Comment on above: Performed By: #### L ACDS, TROPI, PRCAL, MYCM #### [address] [address] RBC #/vol (Bld) 3.48 10*6/uL Low 3.95-5.11 [facility] Comment on above: Performed By: #### L ACDS, TROPI, PRCAL, MYCM #### [address] [address] WBC #/vol (Bld) 5.6 10*3/uL Normal 3.5-11.3 [facility] Comment on above: Performed By: #### L ACDS, TROPI, PRCAL, MYCM #### [facility] [address] [place] [address] 49375 Auto Diff Performed NOT REPORTED Normal [facility] Comment on above: Performed By: #### L ACDS, TROPI, PRCAL, MYCM #### [facility] [address] [place] [address] 01460 Platelets #/vol (Bld) NOT REPORTED Normal [facility] Comment on above: Performed By: #### L ACDS, TROPI, PRCAL, MYCM #### [facility] [address] [place] [address] 35011 RBC morphology finding Nom (Bld) NOT REPORTED Normal [facility] Comment on above: Performed By: #### L ACDS, TROPI, PRCAL, MYCM #### [address] [address] WBC Morphology NOT REPORTED Normal [facility] Comment on above: Performed By: #### L ACDS, TROPI, PRCAL, MYCM #### [facility] [address] [place] [address] HEAD WO CONTRASTon 2017 CT HEAD [...] Erica Angeles MD 08/16/18 Final result Normal [facility] Calcium, [employer] 08-16-2018 Calcium mass conc 0.99 mmol/L Low 1.13-1.33 [facility] Comment on above: Performed By: #### L ACDS, TROPI, PRCAL, MYCM #### [facility] [address] [place] [address] [phone] Comp Metabolic Pr/rfx MGon 1 10-16-2017 (cont.) Normal [facility] Comment on above: Result Comment: Aver age GFR for 30-39 years old: 107 mL/min/1.73sq m Chronic Kidney Disease: <60 mL/min/1.73sq m Kidney failure: <15 mL/min/1.73sq m eGFR calculated using average adult body mass. Additional eGFR calculator available at: http://www.[employer] Systems/multiple_crcl_2012.htm Performed By: #### P T, CMPX, MG, CDP #### [employer] [address] [place] [address] Albumin mass conc 2.3 g/dL Low 3.5-5.2 [facility] Comment on above: Performed By: #### P T, CMPX, MG, CDP #### [facility] [address] [place] [address] 43608 Albumin/Globulin mass ratio 0.7 {ratio} Low 1.0-2.5 [facility] Comment on above: Performed By: #### P T, CMPX, MG, CDP #### [address] [address] Alkaline Phos 67 U/L Normal 35-104 [facility] Comment on above: Performed By: #### P T, CMPX, MG, CDP #### [address] [address]86[address] ALT enzyme act/vol 33 U/L Normal 5-33 [facility] Comment on above: Performed By: #### P T, CMPX, MG, CDP #### [facility] [address] [place] [address] 85933 Anion gap molar conc 11 mmol/L Normal 9-17 [facility] Comment on above: Performed By: #### P T, CMPX, MG, CDP #### [facility] [address] [place] [address] 85603 AST enzyme act/vol 41 U/L High <32 [facility] Comment on above: Performed By: #### P T, CMPX, MG, CDP #### [facility] [address] [place] [address] 12907 Bilirubin Ql (U) 0.40 mg/dL Normal 0.3-1.2 [facility] Comment on above: Performed By: #### P T, CMPX, MG, CDP #### [facility] [address] [place] [address] 65318 Calcium mass conc 7.3 mg/dL Low 8.6-10.4 [facility] Comment on above: Performed By: #### P T, CMPX, MG, CDP #### [facility] [address] [place] [address] 80389 Chloride molar conc 105 mmol/L Normal 98-107 [facility] Comment on above: Performed By: #### P T, CMPX, MG, CDP #### [address] [address] CO2 molar conc 18 mmol/L Low 20-31 [facility] Comment on above: Performed By: #### P T, CMPX, MG, CDP #### [facility] [address] [place] [address] 88763 Creatinine mass conc 1.09 mg/dL High 0.50-0.90 [facility] Comment on above: Performed By: #### P T, CMPX, MG, CDP #### [facility] [address] [place] [address] 24595 GFR, Amer >60 Normal >60 [facility] Comment on above: Performed By: #### P T, CMPX, MG, CDP #### [facility] [address] [place] [address] 58897 GFR,non Amer 56 mL/min Low >60 [facility] Comment on above: Performed By: #### P T, CMPX, MG, CDP #### [facility] [address] [place] [address] 26033 Glucose mass conc 128 mg/dL High 70-99 [facility] Comment on above: Performed By: #### P T, CMPX, MG, CDP #### [facility] [address] [place] [address] 86978 Potassium molar conc 3.6 mmol/L Low 3.7-5.3 [facility] Comment on above: Performed By: #### P T, CMPX, MG, CDP #### [facility] [address] [place] [address] 00002 Protein mass conc 5.5 g/dL Low 6.4-8.3 [facility] Comment on above: Performed By: #### P T, CMPX, MG, CDP #### [employer] [facility] [address] [place] [address] 59862 Sodium molar conc 134 mmol/L Low 135-144 [facility] Comment on above: Performed By: #### P T, CMPX, MG, CDP #### [facility] [address] [place] [address] 24467 Urea nitrogen mass conc 17 mg/dL Normal 6-20 [facility] Comment on above: Performed By: #### P T, CMPX, MG, CDP #### [facility] [address] [place] [address] 40621 BUN/CRE Ratio NOT REPORTED Normal - [facility] Comment on above: Performed By: #### P T, CMPX, MG, CDP #### [facility] [address] [place] [address] 52771 Staging: NOT REPORTED Normal [facility] Comment on above: Performed By: #### P T, CMPX, MG, CDP #### [facility] [address] [place] [address] 95490 Lactic Acid,Whole Blon 08-16 Lactic Acid,Whole Bl 1.2 mmol/L Normal 0.7-2.1 [facility] Comment on above: Performed By: #### L ACDS, TROPI, PRCAL, MYCM #### [facility] [address] [place] [address] 97765 Lactic Acid,Whole Bl 1.2 mmol/L Normal 0.7-2.1 [facility] Comment on above: Performed By: #### L ACWB #### [facility] [address] [place] [address] 37279 Magnesiumon 08-16-2018 Magnesium mass conc 2.0 mg/dL Normal 1.6-2.6 [facility] Comment on above: Performed By: #### L ACDS, TROPI, PRCAL, MYCM #### [address] [phone] Mycoplasma Ab,IgMon 08-16-20 18 Mycoplasma Ab,IgM 0.22 Normal <0.91 [facility] Comment on above: Result Comment: Reference Range: <=0.90 Negative 0.91-1.09 Equivocal >=1.10 Positive Performed By: #### L ACDS, TROPI, PRCAL, MYCM #### [address] [id number] PTon 08-16-2018 INR Coag RelTime (PPP) 1.0 {INR} Normal [facility] Comment on above: Result Comment: Therapeutic Range: Moderate Anticoagulant Intensity: INR = 2.0-3.0 High Anticoagulant Intensity: INR = 2.5-3.5 Performed By: #### P T, CMPX, MG, CDP #### [address] [id number] Prothrombin time (PT) Coag time (PPP) 11.0 s Normal 9.0-12.0 [facility] Comment on above: Performed By: #### P T, CMPX, MG, CDP #### [address] [phone] Troponinon 08-16-2018 Troponin I.cardiac mass conc Normal [facility] Comment on above: Result Comment: Refe rence [...] diagnosis. Performed By: #### T ROPI #### [address] [id number] Troponin I.cardiac mass conc ng/mL Normal <0.03 [facility] Comment on above: Result Comment: Trop onin T results cannot be compared to Troponin-I results. Performed By: #### T ROPI #### [address] [id number] XR CHEST (2 VW)on 08-16-2018 XR CHEST [...] Noe Mitchell MD 08/16/18 Final result Normal [facility] Lactate, Sepsison 08-15-2018 Lactic Acid,Sep Wbld 3.5 mmol/L High 0.5-1.9 [facility] Comment on above: Performed By: #### L ACDS, TROPI, PRCAL, MYCM #### [address] [id number] Lactic Acid, Sepsis NOT REPORTED Normal 0.5-1.9 [facility] Comment on above: Performed By: #### L ACDS, TROPI, PRCAL, MYCM #### [address] [id number] Legionella Ag, Uron 08-15-20 Legionella Ag, Ur [...] this test. Report Status FINAL 08/15/2018 Normal [facility] Comment on above: Performed By: #### U LAG #### [address] [place] [address] Procalcitoninon 08-15-2018 Protein mass conc 3.39 ng/mL High <0.09 [facility] Comment on above: Result Comment: Suspected [...] entered into the Change in Procalcitonin Calculator (www.onsqgv-ibj-qcxhobwezz.Sensity Systems) to determine the patient's Mortality Risk Prognosis Performed By: #### L ACDS, TROPI, PRCAL, MYCM #### [facility] [address] [place] [address] 91683 Strep pneum Ag,CSF/Uron 08-05 Strep pneum Ag,CSF/Ur Specimen Descripti on .CLEAN CATCH URINE Special Requests NOT REPORTED Direct Exam NEGATIVE: Strep pneumoniae antigen not detected Report Status FINAL 08/15/2018 Normal [facility] Comment on above: Performed By: #### S PAG #### [facility] [address] [place] [address] 89469 Troponinon 08-15-2018 Troponin I.cardiac mass conc ng/mL Normal <0.03 [facility] Comment on above: Result Comment: Trop onin T results cannot be compared to Troponin-I results. Performed By: #### L ACDS, TROPI, PRCAL, MYCM #### [facility] [address] [place] [address] 95497 Troponin I.cardiac mass conc Normal [facility] Comment on above: Result Comment: Refe rence [...] #### L ACDS, TROPI, PRCAL, MYCM #### [employer] [facility] [place] [address] Urinalysison 11-18-2017 Bilirubin, Urine Negative Invalid Interpretation Code NEG;NEGATIVE [facility] Blood, Urine Moderate Abnormal NEG;NEGATIVE [facility] Interpretation and review of laboratory results Abnormal Invalid Interpretation Code [facility] Nitrite, Urine Negative Invalid Interpretation Code NEG;NEGATIVE [facility] Protein, Urine Negative Invalid Interpretation Code NEG;NEGATIVE mg/dL [facility] RBCs, Urine 1 /HPF Invalid Interpretation Code 0 - 5 [facility] Squamous Epithelial < 1 Invalid Interpretation Code 0 - 40 /HPF [facility] Urine, bacteria in sediment Rare Invalid Interpretation Code NS;RARE /HPF [facility] Urine, character Hazy Invalid Interpretation Code [facility] Urine, color Yellow Invalid Interpretation Code [facility] Urine, glucose presence Negative Invalid Interpretation Code NEG;NEGATIVE mg/dL [facility] Urine, ketones presence Negative Invalid Interpretation Code NEG;NEGATIVE mg/dL [facility] Urine, leukocyte esterase presence Small Abnormal Negative [facility] Urine, pH 6.0 [pH] Invalid Interpretation Code 4.5 - 8.0 [facility] Urine, specific gravity 1.014 1 Invalid Interpretation Code 1.003 - 1.029 [facility] Urobilinogen, Urine < 2.0 Invalid Interpretation Code <2 mg/dL [facility] WBCs, Urine 6 /HPF High 0 - 5 [facility] CBC and Differentialon 11-17 Basophils 0.7 % Invalid Interpretation Code [facility] Basophils 0.1 K/mcL Invalid Interpretation Code 0 - 0.2 [facility] Eosinophils 0.2 K/mcL Invalid Interpretation Code 0 - 0.5 [facility] Erythrocytes (RBC) 3.97 M/mcL Invalid Interpretation Code 3.7 - 5.0 [facility] Hematocrit (HCT) 35.7 % Invalid Interpretation Code 34.4 - 44.8 % [facility] Hemoglobin (HGB) 12.2 g/dL Invalid Interpretation Code 11.6 - 15.4 g/dL [facility] Interpretation and review of laboratory results Abnormal Invalid Interpretation Code [facility] Lymphocytes 2.1 K/mcL Invalid Interpretation Code 1.0 - 3.7 [facility] MCH 30.6 pg Invalid Interpretation Code 27.9 - 33.9 pg [facility] MCHC 34.0 g/dL Invalid Interpretation Code 33.1 - 35.1 g/dL [facility] MCV 89.8 fL Invalid Interpretation Code 82.6 - 98.9 [facility] Monocytes 0.6 K/mcL Invalid Interpretation Code 0.1 - 0.6 [facility] Neutrophils 6.6 K/mcL Invalid Interpretation Code 1.2 - 6.9 [facility] Platelet mean volume (PMV) 8.6 fL Invalid Interpretation Code 7.0 - 10.6 [facility] Platelets 196 K/mcL Invalid Interpretation Code 162 - 402 [facility] RDW-CA 15.0 % High 10 - 14.4 % [facility] Segmented Neut 69.6 % Invalid Interpretation Code [facility] T8 suppressor/100 cells 1.8 10*3/uL Invalid Interpretation Code [facility] T8 suppressor/100 cells 21.8 10*3/uL Invalid Interpretation Code [facility] T8 suppressor/100 cells 6.1 10*3/uL Invalid Interpretation Code [facility] WBC (Leukocytes) 9.5 K/mcL Invalid Interpretation Code 3.4 - 10.6 [facility] Comprehensive Metabolic Pane lyn 11-17-2017 Alanine aminotransferase (ALT) 18 U/L Invalid Interpretation Code 14 - 65 U/L [facility] Albumin 3.1 g/dL Low 3.2 - 5.2 g/dL [facility] Alkaline phosphatase (ALP) 78 U/L Invalid Interpretation Code 40 - 140 U/L [facility] Aspartate aminotransferase (AST) 7 U/L Invalid Interpretation Code 0 - 45 U/L [facility] Calcium 8.6 mg/dL Invalid Interpretation Code 8.4 - 10.2 mg/dL [facility] Chloride 106 mmol/L Invalid Interpretation Code 98 - 108 mmol/L [facility] CO2 27 mmol/L Invalid Interpretation Code 21 - 32 mmol/L [facility] Creatinine 1.13 mg/dL High 0.4 - 1.1 mg/dL [facility] eGFR (black) mL/min/{1.73_m2} Invalid Interpretation Code ml/min/1.73sq .m [facility] eGFR (non-black) 54 mL/min/{1.73_m2} Low >60 [facility] Glucose 113 mg/dL High 70 - 99 mg/dL [facility] Interpretation and review of laboratory results Abnormal Invalid Interpretation Code [facility] Potassium 3.7 mmol/L Invalid Interpretation Code 3.5 - 5.1 mmol/L [facility] Protein 6.8 g/dL Invalid Interpretation Code 6 - 8 g/dL [facility] Sodium 140 mmol/L Invalid Interpretation Code 135 - 145 mmol/L [facility] Urea nitrogen 17 mg/dL Invalid Interpretation Code 8 - 25 mg/dL [facility] Urine, bilirubin presence 0.4 mg/dL Invalid Interpretation Code 0.3 - 1.2 mg/dL [facility] Lipaseon 11-17-2017 Lipase 167 U/L Invalid Interpretation Code 73 - 393 U/L [facility] Vital Signs Date Time Vital Sign Value Performing Clinician Yovani wolfey 03-03-2023 14:44-0400 Body temperature 98.49 [degF] MASSIMO Shook DPM Work Phone: [facility] 03-03-2023 14:44-0400 Diastolic blood pressure 87 mm[Hg] MASSIMO Shook DPM Work Phone: [facility] 03-03-2023 14:44-0400 Heart rate 94 /min MASSIMO Shook DPM Work Phone: [facility] 03-03-2023 14:44-0400 Systolic blood pressure 139 mm[Hg] MASSIMO Shook DPM Work Phone: [facility] 07-02-2022 09:36-0400 Body height 157.5 cm [facility] Work Phone: [facility] 07-02-2022 09:36-0400 Body mass index (BMI) [Ratio] 38.67 kg/m2 [facility] Work Phone: [facility] 07-02-2022 09:36-0400 Body weight 95.89 kg [employer] Work Phone: [facility] 09-16-2020 20:53-0500 BMI (Body Mass Index) 39.32 kg/m2 [place] 09-16-2020 20:53-0500 Body Temperature 99.5 [degF] [place] 09-16-2020 20:53-0500 Body weight 97.52 kg [place] 09-16-2020 20:53-0500 BP Diastolic 109 mm[Hg] [place] 09-16-2020 20:53-0500 BP Systolic 189 mm[Hg] [place] 09-16-2020 20:53-0500 Height 157.5 cm [place] 09-16-2020 20:53-0500 Pulse (Heart Rate) 99 /min [place] 09-16-2020 20:53-0500 Pulse Oximetry 96 % [place] 09-16-2020 20:53-0500 Respiratory Rate 18 /min [place] Encounters Encounter Date Encounter Type Care Provider Facility Start: 10-29-2023 End: 10-29-2023 ambulatory TIFFANIE CASAS Not Available Start: 08-23-2023 End: 08-26-2023 amb[facility] Start: 08-20-2023 End: 08-20-2023 ambulatory TIFFANIE CASAS Not Available Start: 06-15-2023 End: 06-18-2023 ambulatory [facility] Start: 06-15-2023 End: 06-15-2023 Subsequent hospital visit by physician Felipe Adam MD Work Phone: [facility] Laboratory Comment on above: Mixed hyperlipidemia Start: 05-17-2023 End: 05-18-2023 ambulatory [facility] Start: 04-03-2023 ambulatory FELIPE BACK [facility] Start: 03-03-2023 End: 03-07-2023 ambulatory ROBBIN SHOOK [facility] Start: 03-03-2023 End: 03-03-2023 Office outpatient new 45 minutes MASSIMO Shook DPM Work Phone: [facility] Comment on above: Charcot arthropathy of midfoot (Primary Dx); Gastrocnemius equinus, unspecified laterality; Foot pain, left Start: 02-11-2023 End: 02-12-2023 ambulatory [facility] Facility: Start: 02-05-2023 End: 02-06-2023 ambulatory [facility] Start: 02-05-2023 End: 02-05-2023 Subsequent hospital visit by physician Felipe Adam MD Work Phone: [facility] Laboratory Comment on above: Pelvic pressure in f emale Start: 02-04-2023 End: 02-05-2023 ambulatory [facility] Facility:H1 Start: 01-28-2023 End: 01-29-2023 ambulatory [facility] Facility:H1 Start: 01-06-2023 End: 01-06-2023 Emergency department patient visit [facility] Start: 07-09-2022 End: 07-09-2022 Subsequent hospital visit by physician Samantha Lino RD, LD Work Phone: [facility] Diet and Nutrition Comment on above: Arrived Start: 07-02-2022 End: 07-02-2022 Subsequent hospital visit by physician [facility] Education Work Phone: [facility] Diabetic Education Start: 06-25-2022 End: 06-27-2022 Subsequent hospital visit by physician Serenity Additional Xray At [facility] Radiology Comment on above: Foreign body (FB) in soft tissue Start: 06-25-2022 End: 06-27-2022 Subsequent hospital visit by physician [facility] Mri Scanner [facility] MRI Comment on above: Pain of foot, unspec ified laterality; Closed nondisplaced fracture of second metatarsal bone of left foot, initial encounter; Closed nondisplaced fracture of lateral cuneiform of left foot, initial encounter Start: 05-27-2022 End: 2022 Subsequent hospital visit by physician [facility] Ultrasound Room [facility] Ultrasound Comment on above: Neck mass Start: 04-28-2022 End: 04-29-2022 amb[address] [facility] Start: 04-28-2022 End: 04-28-2022 Subsequent hospital visit by physician Feilpe Adam MD Work Phone: [facility] Comment [...] Start: 02-04-2022 End: 02-04-2022 Patient encounter procedure [facility] [address] Start: 02-03-2022 End: 02-03-2022 Subsequent hospital visit by physician Hilaria Trujillo [facility] Start: 01-29-2022 End: 01-29-2022 Subsequent hospital visit by physician Beverly Rangel [employer] [facility] Comment on above: Arrived Start: 01-27-2022 End: 01-27-2022 Subsequent hospital visit by physician Christel Donohue PT [facility] Comment on above: Arrived Start: 01-24-2022 End: 01-24-2022 Subsequent hospital visit by physician Vanessa Garcia PT [facility] Comment on above: Arrived Start: 01-22-2022 End: 01-22-2022 Subsequent hospital visit by physician Beverly Rangel [employer] [facility] Start: 01-17-2022 End: 01-17-2022 Subsequent hospital visit by physician Beverly Rangel [employer] [facility] Comment on above: Arrived Start: 01-13-2022 End: 01-13-2022 Subsequent hospital visit by physician Christel Donohue PT [facility] Start: 01-03-2022 End: 01-03-2022 Subsequent hospital visit by physician Beverly Rangel [employer] [facility] Comment on above: Arrived [...] Start: 11-29-2021 End: 11-29-2021 ambulatory FELIPE ADAM [facility] Start: 08-01-2021 End: 08-01-2021 Subsequent hospital visit by physician Felipe Adam MD Work Phone: [facility] Comment on above: Frequent UTI; Urinary urgency; Urinary frequency Start: 07-11-2021 End: 07-11-2021 Subsequent hospital visit by physician Felipe Adam MD Work Phone: [facility] Comment on above: Frequent UTI; Urinary [...] by physician Felipe Adam MD Work Phone: [facility] Start: 04-13-2021 End: 04-13-2021 Subsequent hospital visit by physician Felipe Adam MD Work Phone: [facility] Comment on above: Acute cystitis with hematuria Start: 02-13-2021 End: 02-13-2021 Subsequent hospital visit by physician [facility] Covid19 Pat Screening Schedule [facility] Comment on above: Suspected COVID-19 v irus infection Start: 01-21-2021 End: 01-21-2021 Subsequent hospital visit by physician [facility] Covid19 Pat Screening Schedule [facility] Comment on above: Viral illness Start: 11-15-2020 End: 11-15-2020 Subsequent hospital visit by physician [facility] Covid19 Pat Screening Schedule [facility] Comment on above: Arrived Start: 09-16-2020 End: 09-16-2020 Emergency department patient visit Robbin Sales Toribio Work Phone: [facility] ED Comment on above: Acute thoracic back [...] End: 08-29-2019 Subsequent hospital visit by physician [facility] Schedule [facility]EP [facility] Comment on above: Arrived Start: 07-28-2019 End: 07-30-2019 Subsequent hospital visit by physician Tennille Additional Xray At [facility] Radiology Comment on above: MRSA (methicillin re sistant Staphylococcus aureus) septicemia (HCC) Start: 06-17-2019 End: 06-17-2019 Subsequent hospital visit by physician Felipe Adam [facility] Laboratory Comment on above: MRSA (methicillin re sistant Staphylococcus aureus) infection Start: 02-03-2019 End: 02-04-2019 Patient encounter procedure TIFFANIE CASAS [facility] Start: 02-03-2019 End: 02-03-2019 Subsequent hospital visit by physician Tiffanie Casas Work Phone: [facility] MRI Comment on above: Brachial neuritis; Peripheral nerve disorder; Spasm of muscle Start: 11-10-2018 End: 11-10-2018 Patient encounter procedure Andrey Early Facility:[place] Start: 10-18-2018 End: 10-18-2018 Patient encounter procedure Andrey Early Work Phone: [facility] Start: 10-03-2018 Patient encounter procedure Dav Hartman Facility:[place] Start: 10-03-2018 End: 10-03-2018 Patient encounter procedure [facility] Start: 09-20-2018 End: 09-21-2018 Patient encounter procedure Gosia Hartman Facility:[facility] Start: 09-20-2018 Patient encounter procedure Facility:[id number] Start: 09-13-2018 Patient encounter procedure GOSIA HARTMAN [facility] Start: 09-06-2018 End: 09-06-2018 Patient encounter procedure Historical Provider [facility] Start: 08-31-2018 End: 08-31-2018 Patient encounter procedure Historical Provider [facility] Start: 08-27-2018 End: 08-28-2018 Patient encounter procedure Gosia Hartman Facility:[facility] Start: 08-27-2018 Patient encounter procedure Facility:[id number] Start: 08-15-2018 End: 08-25-2018 Evaluation and management of inpatient [facility] Start: 04-02-2018 End: 04-02-2018 Patient encounter procedure Melchor Kvng Facility:[place] Start: 03-23-2018 Patient encounter procedure Shanice Juares Facility:[place] Start: 02-04-2018 End: 02-04-2018 Ambulatory Melchor Weston Kvng [facility] Start: 11-24-2017 Patient encounter procedure [facility] Start: 11-17-2017 End: 11-17-2017 Ambulatory Ceferino Jory Work Phone: [facility] Start: 10-20-2017 End: 10-20-2017 Ambulatory DAKSHA BETANCOURT [facility] Start: 10-20-2017 Patient encounter procedure [facility] Start: 10-09-2017 Ambulatory [facility] Start: 10-09-2017 End: 10-09-2017 Patient encounter procedure [facility] Start: 09-16-2017 Patient encounter procedure [facility] Start: 08-03-2017 Ambulatory [facility] Start: 03-31-2017 End: 03-31-2017 Ambulatory SHANICE GOLDSTEIN MOR [facility] Procedures Date Procedure Procedure Detail Performing [...] Phone: Start: 01-21-2021 COVID-19 Pattiesebastian Tafoya lliams [employer] Work Phone: Start: 11-15-2020 COVID-19 Gosia Kevinu [...] 09-24-2019 Hemoglobin glycosyla jamia a1c Janel Allen [employer] Work Phone: Start: 09-24-2019 VITAMIN B12 & FOLATE Ja danny Allen [employer] Work Phone: Start: 07-28-2019 Radex spine cervical 4 or 5 views Azalea Longthorne Work Phone: Start: 07-28-2019 Blood count complete auto&auto difrntl wbc Azalea Longthorne [employer] Work Phone: Start: 07-28-2019 C-reactive protein Azalea Knight [employer] Work Phone: Start: 06-17-2019 Albumin serum plasma [...] Unless otherwise noted, all testing performed by [place] [address] [address] [place] [address] CLIA: [id number] [employer] Machine Operator: Harshad Solano M.D. Start: 09-06-2018 End: [...] Start: 08-22-2018 INITIATE OXYGEN THER APY PROTOCOL [facility] Start: 08-22-2018 PULSE OXIMETRY, CONTINUOUS [...] 08-21-2018 Blood count complete auto&auto difrntl wbc [facility] Start: 08-21-2018 PULSE OXIMETRY, CONTINUOUS [facility] Start: 08-21-2018 [...] CONTINUOUS JV [facility] Start: 08-18-2018 TELEMETRY MONITORING [place] [facility] Start: 08-18-2018 INCENTIVE SPIROMETRY RT [...] LEON Velma Start: 08-15-2018 INCENTIVE SPIROMETRY RT [facility]J [facility] Start: 08-15-2018 INITIATE OXYGEN THER APY [...] of 2) Shingles Vaccine (1 of 2) [facility] [place] Start: 04-12-2027 Lipid panel Lipids [facility] [employer] Start: 05-14-2026 Lipid panel [facility] Start: 05-25-2025 Lipid panel Lipid screen [facility] [place] Start: 09-24-2024 Screening for malignant neoplasm of cervix [facility] [employer] [facility] Start: 09-08-2024 DTaP/Tdap/Td vaccine (2 - Td or Tdap) DTaP/Tdap/Td vaccine (2 - Td or Tdap) [facility] Start: 09-08-2024 DTaP/Tdap/Td vaccine (2 - Td) DTaP/Tdap/Td vaccine (2 - Td) [place], [place] Start: 09-08-2024 Tetanus vaccination [facility] Start: 05-17-2024 GFR test (Diabetes, CKD 3-4, OR last GFR 15-59) GFR test (Diabetes, CKD 3-4, OR last GFR 15-59) [facility] Start: 05-14-2024 Diabetes screen Diabetes screen [facility] Start: 05-11-2024 Lipid panel Lipid screen [place], [place] Start: 05-11-2024 Lipid screen Lipid screen [place] Start: 03-23-2024 Depression Monitoring Depression Monitoring [facility] Start: 02-06-2024 GFR test (Diabetes, CKD 3-4, OR last GFR 15-59) GFR test (Diabetes, CKD 3-4, OR last GFR 15-59) [facility] Start: 02-06-2024 Hemoglobin A1c measurement A1C test (Diabetic or Prediabetic) [facility] Start: 08-13-2023 End: 08-13-2023 Patient encounter procedure [facility] Start: 06-22-2023 End: 06-22-2023 Patient encounter procedure 06/22/2023 11:15 AM EDT Office Visit [facility] [address] [place] [id number] Felipe Adam MD [address] [place] [address] [facility] Start: 06-05-2023 Influenza vaccination Sequential Influenza Vaccine (Season Ended) [facility] Start: 05-05-2023 Influenza vaccination [facility] Start: 04-14-2023 End: 04-14-2023 Patient encounter procedure 04/14/2023 Office Visit Family Medicine Felipe Adam MD [address] [place] [id number] [facility] Start: 04-12-2023 Hemoglobin A1c measurement A1C test (Diabetic or Prediabetic) [facility] [employer] Start: 04-11-2023 Depression Monitoring Depression Monitoring [facility] [employer] Start: 04-11-2023 History and physical examination, annual for health maintenance Wellness Visit [facility] Start: 12-25-2022 End: 12-25-2022 Patient encounter procedure 12/25/2022 Office Visit Infectious Diseases Dav Hartman MD [address] [place] [address] [facility] Start: 09-24-2022 Diabetes screen Diabetes screen [place], [place] Start: 08-07-2022 End: 08-07-2022 Patient encounter procedure 08/07/2022 Office Visit Urology Luis Mclean, PA-C [address] [facility] [address] [address] [facility] Start: 07-15-2022 End: 07-15-2022 Nursing evaluation of patient and report 07/15/2022 Nurse Only Family Medicine [facility] Start: 07-09-2022 End: 07-09-2022 Patient encounter procedure 07/09/2022 Appointment IP Unit Samantha Lnio RD, LD [facility] Diet and Nutrition Start: 06-05-2022 Influenza vaccination [facility] Start: 05-20-2022 Creatinine measurement [facility] [employer] Start: 05-20-2022 Potassium [Moles/volume] in Serum or Plasma Potassium [facility] Start: 05-20-2022 Potassium monitoring Potassium monitoring [facility] Start: 05-14-2022 Creatinine measurement [facility] Start: 05-14-2022 Potassium monitoring Potassium monitoring [employer] Work Phone: Start: 05-05-2022 Influenza vaccination Flu vaccine (#1) [employer] Start: 02-05-2022 End: 02-05-2022 Patient encounter procedure 02/05/2022 Appointment Physical Therapy Christel Donohue, PT [facility] Start: 02-03-2022 End: 02-03-2022 Patient encounter procedure [facility] Start: 01-30-2022 End: 01-30-2022 Patient encounter procedure [facility] Start: 01-29-2022 End: 01-29-2022 Patient encounter procedure 01/29/2022 Appointment Physical Therapy Beverly Rangel [employer] [facility] Start: 01-27-2022 End: 01-27-2022 Patient encounter procedure 01/27/2022 Appointment Physical Therapy Christel Donohue, PT [facility] Start: 01-24-2022 End: 01-24-2022 Patient encounter procedure 01/24/2022 Appointment Physical Therapy Vanessa Garcia, PT [facility] Start: 01-22-2022 End: 01-22-2022 Patient encounter procedure 01/22/2022 Appointment Physical Therapy Beverly Rangel, [employer] [facility] Start: 01-17-2022 End: 01-17-2022 Patient encounter procedure 01/17/2022 Appointment Physical Therapy Beverly Rangel [employer] DIRECT[employer] [facility] Start: 01-10-2022 End: 01-10-2022 Patient encounter procedure 01/10/2022 Appointment Physical Therapy Christel Donohue PT [facility] Start: 01-08-2022 End: 01-08-2022 Patient encounter procedure 01/08/2022 Appointment Physical Therapy Beverly Rangel [employer] DIRECT[employer] [facility] Start: 01-02-2022 End: 01-02-2022 Patient encounter procedure 01/02/2022 Appointment Occupational Therapy Judi Marie OTA [address] [place] [address] [facility] Start: 12-31-2021 Diabetes screen Diabetes screen [facility] [place], [place] Start: 12-31-2021 End: 12-31-2021 Patient encounter procedure [facility] Start: 12-30-2021 End: 12-30-2021 Patient encounter procedure 12/30/2021 Appointment Occupational Therapy Cheryl Herman OT [facility] Start: 12-27-2021 End: 12-27-2021 Patient encounter procedure 12/27/2021 Appointment Occupational Therapy vEe Gaspar OTA [facility] Start: 11-14-2021 End: 11-14-2021 Patient encounter procedure 11/14/2021 Office Visit Felipe Hampton MD [address] [place] [address] [phone] [facility] Start: 10-29-2021 Depression Monitoring Depression Monitoring [facility] Start: 09-16-2021 Creatinine measurement Creatinine monitoring [employer] Phone: Start: 09-16-2021 Potassium monitoring Potassium monitoring [employer] Phone: Start: 08-01-2021 End: 08-01-2021 Patient encounter procedure 08/01/2021 Office Visit Urology Lita Weeks MD [address] [place] [address], [address] [place] [address] [facility] Start: 06-05-2021 Influenza vaccination [facility] Start: 05-25-2021 Creatinine measurement Creatinine monitoring [place] Start: 05-25-2021 HbA1c (Bld) [Mass fraction] A1C test (Diabetic or Prediabetic) [employer] [place], [place] Start: 05-25-2021 Hemoglobin A1c measurement A1C test (Diabetic or Prediabetic) [employer] Phone: Start: 05-25-2021 Potassium monitoring Potassium monitoring [employer] [place] Start: 11-13-2020 End: 11-13-2020 Office Visit 11/13/2020 Office Visit Felipe Hampton MD [address] [place] [address] [phone] [facility] Start: 11-02-2020 Potassium monitoring Potassium monitoring [employer] [place] Start: 10-23-2020 End: 10-23-2020 Office Visit 10/23/2020 Office Visit Infectious Diseases Dav Hartman MD [address] [place], [place] [id number] [facility] Start: 09-24-2020 HbA1c (Bld) [Mass fraction] A1C test (Diabetic or Prediabetic) [place] Start: 06-17-2020 Creatinine measurement Creatinine monitoring [place], [place] Start: 06-17-2020 Creatinine monitoring Creatinine monitoring [place], [place] Start: 06-17-2020 Potassium monitoring Potassium monitoring [place] Start: 06-12-2020 End: 06-12-2020 Office Visit 06/12/2020 Office Visit Infectious Diseases Dav Hartman MD [address] [place] [address] [phone] [facility] Start: 06-05-2020 Influenza vaccination Flu vaccine (#1) [place], [place] Start: 03-20-2020 Cervical cancer screen Cervical cancer screen [place], [place] Start: 03-20-2020 Screening for malignant neoplasm of cervix [facility] Start: 11-01-2019 End: 11-01-2019 Office Visit 11/01/2019 Office Visit Infectious Diseases Dav Hartman MD [address] [place], [place] [id number] [facility] Start: 07-28-2019 End: 07-28-2019 Office Visit 07/28/2019 Office Visit Infectious Dav Beaver MD [address] [place], [place] [id number] [facility] [employer]. Start: 06-27-2019 End: 06-27-2019 Nurse Only 06/27/2019 Nurse Only Family Medicine [facility] Start: 06-05-2019 Influenza vaccination Flu vaccine (#1) [place], [place] Start: 06-05-2019 Influenza vaccination given SEQUENTIAL INFLUENZA VACCINE (Season Ended) [facility] Start: 2019 Screening for malignant neoplasm of breast Mammogram [facility] Start: 06-05-2018 Influenza vaccination INFLUENZA VACCINE (#1) [facility] Work Phone: Start: 03-23-2018 End: 03-23-2018 Ambulatory [facility] Start: 2009 Screening for malignant neoplasm of cervix HPV (without or with Pap) [facility] Start: 2000 Screening for malignant neoplasm of cervix PAP SMEAR DISCUSSION [facility] Work Phone: Start: 1998 Third diphtheria, tetanus and acellular pertussis (DTaP) vaccination TDAP (ADULT) [facility] Work Phone: Start: 1997 Hepatitis C screening Hepatitis C Screening [facility] Start: 1997 Tetanus vaccination TETANUS [facility] Work Phone: Start: 1995 COVID-19 Vaccine (1) COVID-19 Vaccine (1) [facility] Work Phone: Start: 1994 HIV screen HIV screen [place], [place] Start: 1994 HIV screening HIV screen [facility] Start: 1992 HIV screening HIV SCREENING DISCUSSION [facility] Work Phone: Start: 1991 COVID-19 Vaccine (1) COVID-19 Vaccine (1) [facility] Work Phone: Start: 1991 Depression Monitoring Depression Monitoring [facility] Start: 1991 Depression screening using PHQ-9 (Patient Health Questionnaire 9) score Depression Screening (PHQ-2/9) [facility] Start: 1989 Urine screening for protein Urine Microalbumin [facility] Start: 1985 Pneumococcal Vaccine: Ped or At-Risk (1 - PCV) Pneumococcal Vaccine: Ped or At-Risk (1 - PCV) [facility] Start: 1984 COVID-19 Vaccine (1) COVID-19 Vaccine (1) [facility] Start: 1982 History and physical examination, annual for health maintenance Wellness Visit [facility] Start: 1979 COVID-19 Vaccine (#1) COVID-19 Vaccine (#1) [facility] [employer] Start: 1979 Hepatitis B vaccine (1 of 3 - 3-dose series) Hepatitis B vaccine (1 of 3 - 3-dose series) [facility] End: 02-13-2021 COVID-19 COVID-19 Lab Routine Suspected COVID-19 virus infection 1 Occurrences starting 02/13/2021 until 02/13/2021 [employer] Phone: Comment on above: 1 Occurrences starting 02/13/2021 until 02/13/2021 COVID-19 COVID-19 Lab Rou luis Suspected COVID-19 virus infection 02/13/2021 3:06 PM EDT [employer] Phone: End: 08-08-2020 COVID-19 Ambulatory COVID-19 Ambulatory Lab Routine SOB (shortness of breath) 1 Occurrences starting 08/08/2020 until 08/08/2020 [facility] [place] Comment on above: 1 Occurrences starting 08/08/2020 until 08/08/2020 COVID-19 Ambulatory COVID-19 Amb ulatory Lab Routine SOB (shortness of breath) 08/08/2020 4:02 PM [facility] [place] End: 05-20-2021 Creatinine [Mass/volume] in Urine Creatinine, Random Urine Lab Routine Once for 1 Occurrences starting 05/20/2021 until 05/20/2021 [employer] Phone: Comment on above: Once for 1 Occurrences starting 05/20/20 21 until 05/20/2021 Creatinine [Mass/vol ume] in Urine Creatinine, Random Urine Lab Routine 05/20/2021 7:57 PM EDT [employer] Phone: End: 04-13-2021 Culture, Urine Culture, Urine Microbiology Routine Acute cystitis with hematuria 1 Occurrences starting 04/13/2021 until 04/13/2021 [employer] Phone: Comment on above: 1 Occurrences starting 04/13/2021 until 04/13/2021 Culture, Urine [employer] Phone: End: 05-27-2021 Culture, Urine Culture, Urine Microbiology Routine Difficult or painful urination 1 Occurrences starting 05/27/2021 until 05/27/2021 [employer] Phone: Comment on above: 1 Occurrences starting 05/27/2021 until 05/27/2021 End: 06-11-2021 Culture, Urine Culture, Urine Microbiology Routine Acute cystitis with hematuria Recurrent UTI 1 Occurrences starting 06/11/2021 until 06/11/2021 [employer] Phone: Comment on above: 1 Occurrences starting 06/11/2021 until 06/11/2021 End: 07-11-2021 Culture, Urine Culture, Urine Microbiology Routine Frequent UTI Urinary urgency Urinary frequency 1 Occurrences starting 07/11/2021 until 07/11/2021 [employer] Phone: Comment on above: 1 Occurrences starting 07/11/2021 until 07/11/2021 End: 08-01-2021 Culture, Urine Culture, Urine Microbiology Routine Frequent UTI Urinary urgency Urinary frequency 1 Occurrences starting 08/01/2021 until 08/01/2021 [employer] Phone: Comment on above: 1 Occurrences starting 08/01/2021 until 08/01/2021 End: 04-28-2022 Culture, Urine Culture, Urine Microbiology Routine Acute cystitis with hematuria 1 Occurrences starting 04/28/2022 until 04/28/2022 [employer] Phone: Comment on above: 1 Occurrences starting 04/28/2022 until 04/28/2022 End: 02-05-2023 Culture, Urine [employer] Phone: Comment on above: 1 Occurrences starting 02/05/2023 until 02/05/2023 End: 04-12-2022 Hemoglobin A1c/Hemoglobin.total in Blood [employer] Phone: Comment on above: 1 Occurrences starting 04/12/2022 until 04/12/2022 End: 02-05-2023 Hemoglobin A1c/Hemoglobin.total in Blood [facility] [employer] Phone: Comment on above: Once for 1 Occurrences starting 02/06/20 until 02/05/2023 End: 08-29-2019 Home Sleep Study Home Sleep Study Sleep Center Routine One Time for 1 Occurrences starting 08/29/2019 until 08/29/[facility] [place] [place] Comment on above: One Time for 1 Occurrences starting 08/06 until 08/29/2019 End: 09-24-2019 Methylmalonic Acid, Serum Methylmalonic Acid, Serum Lab Routine Once for 1 Occurrences starting 09/24/2019 until 09/24/2019 [employer] Phone: Comment on above: Once for 1 Occurrences starting 09/24/20 until 09/24/2019 Methylmalonic Acid, Serum Methyl malonic Acid, Serum Lab Routine 09/24/2019 9:33 AM [employer] Phone: End: 09-24-2019 Nuclear Ab [Titer] in Serum by Immunofluorescence ALICJA Lab Routine Once for 1 Occurrences starting 09/24/2019 until 09/24/2019 [employer] Phone: Comment on above: Once for 1 Occurrences starting 09/24/20 until 09/24/2019 Nuclear Ab [Titer] i n Serum by Immunofluorescence ALICJA Lab Routine 09/24/2019 9:33 AM [employer] Phone: End: 05-20-2021 Protein, urine, random Protein, urine, random Lab Routine Once for 1 Occurrences starting 05/20/2021 until 05/20/2021 [employer] Phone: Comment on above: Once for 1 Occurrences starting 05/20/20 until 05/20/2021 Protein, urine, random Protein, urine, random Lab Routine 05/20/2021 7:57 PM EDT [employer] Phone: End: 12-14-2019 Sedimentation Rate Sedimentation Rate Lab Routine MRSA (methicillin resistant Staphylococcus aureus) septicemia (HCC) 1 Occurrences starting 12/14/2019 until 12/14/2019 [employer] [place] Comment on above: 1 Occurrences starting 12/14/2019 until 12/14/2019 Sedimentation Rate Sedimentation Rate Lab Routine MRSA (methicillin resistant Staphylococcus aureus) septicemia (HCC) 12/14/2019 12:39 PM EDT [facility] [place] End: 09-24-2019 Sjogrens syndrome-A extractable nuclear antibody Sjogrens syndrome-A extractable nuclear antibody Lab Routine Once for 1 Occurrences starting 09/24/2019 until 09/24/2019 [employer] Phone: Comment on above: Once for 1 Occurrences starting 09/24/20 until 09/24/2019 Sjogrens syndrome-A extractable nuclear antibody Sjogrens syndrome-A extractable nuclear antibody Lab Routine 09/24/2019 9:33 AM [employer] Phone: End: 09-24-2019 Sjogrens syndrome-B extractable nuclear antibody Sjogrens syndrome-B extractable nuclear antibody Lab Routine Once for 1 Occurrences starting 09/24/2019 until 09/24/2019 [employer] Phone: Comment on above: Once for 1 Occurrences starting 09/24/20 until 09/24/2019 Sjogrens syndrome-B extractable nuclear antibody Sjogrens syndrome-B extractable nuclear antibody Lab Routine 09/24/2019 9:33 AM [employer] Phone: End: 09-12-2019 Sleep Study with PAP Titration Sleep Study with PAP Titration Sleep Center Routine One Time for 1 Occurrences starting 09/12/2019 until 09/12/2019 [employer] Phone: Comment on above: One Time for 1 Occurrences starting 06/2019 until 09/12/2019 End: 09-24-2019 Vitamin B6 Vitamin B6 Lab Routine Once for 1 Occurrences starting 09/24/2019 until 09/24/2019 [employer] Phone: Comment on above: Once for 1 Occurrences starting 09/24/20 19 until 09/24/2019 Vitamin B6 Vitamin B6 Lab R outine 09/24/2019 9:33 AM [employer] Phone: Immunizations Immunization Date Immunization Notes Care Provider Yair dai 09-08-2014 tetanus toxoid, redu gaby diphtheria toxoid, and acellular pertussis vaccine, [facility] [place] [place] Payers Date Payer Category Payer Unknown 2016 Unknown [id number] 2016 Unknown xxxxxxxxxxxxxxx [id number] 2014 Medicaid [id number] 2014 Medicaid [employer] xxxxxxxxxxx 2014-Present xxxxxxxxxxx [id number] 1979 Unknown [id number] [id number] 1979 Unknown [id number] 2.16.840.1.797289.3.579.2.356 1979 Unknown [id number] 2.16.840.1.250897.3.579.2.717 1979 Unknown [id number] 2.16.840.1.971895.3.579.2.717 1979 Unknown [id number] 2.16.840.1.321761.3.579.2.175 1979 Unknown [id number] 2.16.840.1.931377.3.579.2.903 1979 Unknown [id number] 2.16.840.1.301866.3.579.2.182 1979 Unknown [id number] 2.16.840.1.622377.3.579.2.185 1979 Unknown [id number] 2.16.840.1.942730.3.579.2.903 1979 Unknown [id number] 2.16.840.1.969161.3.579.2.593 1979 Unknown [id number] 2.16.840.1.237055.3.579.2.593 1979 Unknown [id number] 2.16.840.1.159791.3.579.2.593 1979 Unknown [id number] 2.16.840.1.805504.3.579.2.903 1979 Unknown [id number] 2.16.840.1.291902.3.579.2.903 1979 Unknown [id number] 2.16.840.1.101862.3.579.2.903 1979 Unknown [id number] 2.16.840.1.189355.3.579.2.174 1979 Unknown [id number] 2.16.840.1.169556.3.579.2.174 1979 Unknown [id number] 2.16.840.1.402331.3.579.2.174 1979 Unknown [id number] 2.16.840.1.939648.3.579.2.174 1979 Unknown [id number] 2.16.840.1.511819.3.579.2.174 1979 Unknown [id number] 2.16.840.1.251613.3.579.2.174 1979 Unknown [id number] 2.16.840.1.359221.3.579.2.1259 1979 Unknown [id number] 2.16.840.1.151917.3.579.2.1259 1959 Unknown [id number] [id number] Self-pay Self Pay [id number] Unknown [id number] Social History Date Type Detail Facility Start: 05-01-2015 End: 04-28-2022 Tobacco smoking status NHIS Never smoker [facility] Work Phone: Start: 1980 Sex Assigned At Not on file [facility] Work Phone: Start: 05-27-2019 End: 03-23-2023 Alcohol intake No [employer], [place] Start: 12-13-2019 End: 05-26-2023 Alcohol intake Current non-drinker of alcohol (finding) [employer] Start: 12-09-2019 End: 05-13-2021 History SDOH Financial 4 [employer], [place] Start: 12-09-2019 End: 05-20-2022 History SDOH Food Worry 1 [employer] [place] , [place] Start: 12-09-2019 History SDOH Transport Med 2 [employer] [place] Start: 05-11-2020 End: 04-28-2022 Tobacco use and exposure Never used [facility] [place] Start: 10-30-2021 End: 03-02-2023 Exposure to SARS-CoV-2 (event) Not sure [facility] [place] [place] Start: 1980 Sex Assigned At Female [facility] Start: 05-20-2022 History SDOH Financial 3 [employer] Work Phone: Start: 01-06-2023 End: 03-23-2023 History of Social function [facility] How hard is it for y ou to pay for the very basics like food, housing, medical care, and heating Not very hard [employer] Patient Health Questionnaire 9 item (PHQ-9) total score [Reported] 0 [employer] (I/We) worried wheth er (my/our) food would run out before (I/we) got money to buy more. Never true [employer] At any time in the p ast 12 months, were you homeless or living in care home [including now]? No [employer] Start: 10-09-2020 Gender identity Identifies as female gender (finding) [employer] Start: 10-09-2020 Sexual orientation Heterosexual (finding) BON [...] She follows with an outside provider in [place] and was immobilized for an extended period [...] & Ankle Surgery documented in this encounter [facility] 01-29-2023 Note PROCEDURE: XR ANKLE LT MIN [...] authenticated by: PIPER MERCEDES Date: 2023-01-29 07:05 [facility] 01-29-2023 Note PROCEDURE: XR ANKLE LT MIN [...] authenticated by: PIPER MERCEDES Date: 2023-01-29 07:05 [facility] 07-09-2022 History of Present illness Narrative MNT [...] BMR: 1573 calories Est. total calorie needs: ~6269-3262 Lab Results Component Value Date/Time TRIG 460 [...] bread Supper: pork chop or chicken, homemade guamanian fries, mashed, or baked potato with broccoli [...] minutes. documented in this encounter [employer] Phone: 02-05-2022 History of Present illness Narrative [facility] Rehab and Wellness Date: 02/05/2022 Patient Name: Celina Gaspar : 1980 Pt No Showed Appt- Follow up call, left message on voicemail that patient discharged, but to call if has questions or concerns. Christel Donohue, PT Date: 02/05/2022 documented in this encounter [employer] Phone: 02-05-2022 Hospital course Narrative Images from the original note were not included. [facility] Outpatient Physical Therapy Discharge Summary Patient: Celina [...] PT Date: 02/05/2022 documented in this encounter [employer] Phone: 02-03-2022 History of Present illness Narrative [facility] Date: 02/03/2022 Patient Name: Celina Gaspar : 1980 Pt Cancelled Appt due to no reason for cancel. Jerica Melgar Date: 02/03/2022 documented in this encounter [employer] Phone: 01-29-2022 History of Present illness Narrative Images from the original note were not included. 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 [facility] Outpatient Physical Therapy Daily Note Date: 01/27/2022 Patient Name: Celina Gaspar : 1980 (41 y.o.) Referring Practitioner: Liliane Sawyer APRN, OLD COIN DEALER Referral Date : 12/19/21 Diagnosis: Lumbar radiculopathy [...] Met Penitentiary Goals - Time Frame for retirement goals : 10 Penitentiary Goals Time Frame for retirement goals : 10 retirement goal 1: Decrease pain low back 2/10 at worst x3 days for completing normal activities retirement goal 2: Patient to report 50% decrease in radicular symptoms L LE Post Treatment Pain: 4/10 Time In: 15:50 Time Out : 16:19 Timed Code Treatment Minutes: 34 Minutes Total Treatment Time: 34 Minutes Christel Donohue PT Date: 01/27/2022 documented in this encounter [employer] Phone: 01-24-2022 History of Present illness Narrative Images from the original note were not included. 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 1: Decrease pain low back 2/10 at worst x3 days for completing normal activities retirement goal 2: Patient to report 50% decrease in radicular symptoms L LE Post Treatment Pain: 5/10 Time In: 0952 Time Out: 1030 Timed Code Treatment Minutes: 38 Minutes Total Treatment Time: 38 Minutes Vanessa Garcia, PT Date: 01/24/2022 documented in this encounter [employer] Phone: 01-22-2022 History of Present illness Narrative [facility] Re[facility]ness Date: 01/22/2022 Patient Name: Celina Gaspar : 1980 Patient did not show up for her appointment. Message left on answering machine with a reminder of her next appointment on Thursday. Beverly Rangel, DEPUTY DISTRICT CUSTOMS DIRECTOR Date: 01/22/2022 documented in this encounter [employer] Phone: 01-17-2022 History of Present illness Narrative Images from the original note were not included. 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 PRESTON Metzger/Matthew Date: 01/13/2022 documented in this encounter [employer] Phone: 01-03-2022 History of Present illness Narrative Images from the original note were not included. 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 2: Pt to demonstrate R wrist flexion to 65 degrees or more in order to engage in daily tasks-MET retirement goal 3: Pt to demonstrate R wrist extension to 60 degrees or more in order to engage in daily tasks-MET retirement goal 4: Pt to be educated on carpal tunnel do's & dont's in order to prevent further repetitive injury to wrist-MET Timed Code Treatment Minutes: 30 Minutes Time In: 915 Time Out: 945 Timed Coded Minutes: 30 Total Treatment Time: 30 THERESA Houser, OTR/L Date: 12/31/2021 documented in this encounter [employer] Phone: 12-31-2021 Hospital course Narrative Images from the original note were not included. 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 Therapist provided pt with handout on Carpal Tunnel Dos & Dont's to avoid re-injury. 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 2: Pt to demonstrate R wrist flexion to 65 degrees or more in order to engage in daily tasks 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 3: Pt to demonstrate R wrist extension to 60 degrees or more in order to engage in daily tasks retirement goal 4: Pt to be educated on carpal tunnel do's & dont's in order to prevent further repetitive injury to wrist Patient's Goal: pt wishes to return to prior function Time In: 830 Time Out: 924 Timed Coded Minutes: 0 Total Treatment Time: 54 THERESA Houser, OTR/L 12/23/2021 documented in this encounter [employer] Phone: Evaluation note Diagnosis Viral illness Unspecified viral infection, in conditions classified elsewhere and of unspecified site documented in this encounter [employer] Phone: evaluation note* Diagnosis Suspected COVID-19 virus infection documented in this encounter [employer] Phone: [email or web address] note* Diagnosis Acute cystitis with hematuria Acute cystitis documented in this encounter [employer] Phone: evaluation note* Diagnosis Difficult or painful urination Dysuria documented in this encounter [employer] Phone: [email or web address] note* Diagnosis Acute cystitis with hematuria Acute cystitis Recurrent UTI Urinary tract infection, site not specified documented in this encounter [employer] Phone: [email or web address] note* Diagnosis Frequent UTI Urinary tract infection, site not specified Urinary urgency Urgency of urination Urinary frequency documented in this encounter [employer] Phone: evaluation note* Diagnosis Frequent UTI Urinary tract infection, site not specified Urinary urgency Urgency of urination Urinary frequency documented in this encounter [employer] Phone: [email or web address] note* Diagnosis MRSA (methicillin resistant Staphylococcus aureus) septicemia ([facility]) Methicillin resistant staphylococcus aureus septicemia documented in this encounter [facility] [place] noteNo assessment information availableCorey [facility] Work Phone: Evaluation note* Diagnosis Fatigue, unspecified type Encounter for screening for HIV Mixed hyperlipidemia Hyperglycemia Other abnormal glucose Chronic renal impairment, stage 3b (HCC) documented in this encounter [employer] Phone: evaluation note* Diagnosis Acute cystitis with hematuria Acute cystitis documented in this encounter [employer] Phone: [email or web address] note* Diagnosis Neck mass Swelling, mass, or lump in head and neck documented in this encounter [employer] Phone: evaluation note* Diagnosis Pain of foot, unspecified laterality Closed nondisplaced fracture of second metatarsal bone of left foot, initial encounter Closed nondisplaced fracture of lateral cuneiform of left foot, initial encounter documented in this encounter [employer] Phone: evalkkqipl note* Diagnosis Foreign body (FB) in soft tissue Residual foreign body in soft tissue documented in this encounter [employer] Phone: evaluation note* Diagnosis Pelvic pressure in female Other specified symptom associated with female genital organs documented in this encounter [employer] Phone: evaluation note* Diagnosis Charcot arthropathy of midfoot- Primary Gastrocnemius equinus, unspecified laterality Foot pain, left Pain in soft tissues of limb [facility] Mixed hyperlipidemia documented in this encounter [employer] Summary Purpose Family History No Family History [...] FoundDocuments on File Type Date Recorded 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 Advance Directives and Living Will 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 Latest Code Status on File Code Status Date Activated Date Inactivated Comments Full Code 08/15/2018 4:17 PM 08/25/2018 8:55 PM Full Code 03/19/2017 1:37 PM 03/19/2017 4:32 PM Full Code 03/19/2017 10:57 AM 03/19/2017 1:37 PM Full Code 03/05/2017 12:56 PM 03/05/2017 3:55 PM Full Code 03/05/2017 10:05 AM 03/05/2017 12:56 PM Documents on File Type Date Recorded 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 * Back Care Basics: General Info (Sami) * Back: Preventing Injuries (Sami) documented in this encounter Reason for Referral Status Reason Specialty Diagnoses / Procedures Referre d By Contact Referred To Contact Closed Radiology Diagnoses Brachial neuritis Peripheral nerve disorder Spasm of muscle Procedures MR Cervical Spine Without Contrast Tiffanie Casas MD [address] [place] [address] Specialty Diagnoses / Procedures Referred By Contac t Referred To Contact Radiology Diagnoses Neck mass Procedures US HEAD NECK SOFT TISSUE THYROID Felipe Adam MD [address] [place] [address] Referral ID Status Reason Start Date Expiration Date Visits Re quested Visits Authorized [id number] Closed 05/27/2022 05/27/2023 1 1 Chief Complaint and Reason for Visit Chief Complaint M54.16 M79.10 M79.60 9 R20.9 Additional Source Comments INFORMATION SOURCE (unrecogn ized section and content) DATE CREATED AUTHOR 03/30/2018 [facility] DATE CREATED AUTHOR AUTHOR'S ORGANIZ ATION 03/30/2018 [facility] DATE CREATED AUTHOR AUTHOR'S ORGANIZ ATION 09/15/[facility] DATE CREATED AUTHOR AUTHOR'S ORGANIZ ATION 09/23/2018 [facility] DATE CREATED AUTHOR AUTHOR'S ORGANIZ ATION 09/26/2018 [facility] DATE CREATED AUTHOR AUTHOR'S ORGANIZ ATION 12/10/2018 [facility] DATE CREATED AUTHOR AUTHOR'S ORGANIZ ATION 12/18/[address] [facility] DATE CREATED AUTHOR AUTHOR'S ORGANIZ ATION 02/11/2019 [facility] DATE CREATED AUTHOR AUTHOR'S ORGANIZ ATION 11/30/2021 [facility] DATE CREATED AUTHOR AUTHOR'S ORGANIZ ATION 02/21/2022 [facility] DATE CREATED AUTHOR AUTHOR'S ORGANIZ ATION 05/01/2022 [facility] DATE CREATED AUTHOR AUTHOR'S ORGANIZ ATION 08/22/2022 [facility] DATE CREATED AUTHOR AUTHOR'S ORGANIZ ATION 01/12/2023 [facility] DATE CREATED AUTHOR AUTHOR'S ORGANIZ ATION 02/15/2023 [facility] DATE CREATED AUTHOR AUTHOR'S ORGANIZ ATION [facility]20[facility] DATE CREATED AUTHOR AUTHOR'S ORGANIZ ATION 04/04/2023 [facility] DATE CREATED AUTHOR AUTHOR'S ORGANIZ ATION 08/26/2023 [facility] DATE CREATED AUTHOR AUTHOR'S ORGANIZ ATION 10/30/2023 [facility] EPIC Reason for Visit (unrecogniz ed section and content) Status Reason Specialty Diagnoses / Procedures Referre d By Contact Referred To Contact Closed Radiology Diagnoses Brachial neuritis Peripheral nerve disorder Spasm of muscle Procedures MR Cervical Spine Without Contrast Tiffanie Casas MD [address] [place] [id number] Specialty Diagnoses / Procedures Referred By Contac t Referred To Contact Occupational Therapy Diagnoses Carpal tunnel syndrome Carpal Tunnel Syndrome Procedures Eval and treat Keenan Lozano MD [address] [address] [facility] [address] [place] [address] Referral ID Status Reason Start Date Expiration Date Visits Re quested Visits Authorized [id number] Open 12/19/2021 12/19/2022 1 1 Specialty Diagnoses / Procedures Referred By Contac t Referred To Contact Physical Therapy Diagnoses Radiculopathy, lumbar region Lumbar Radiculopathy Procedures Eval and treat Janel Allen, OYSTER FLOATER - OLD COIN DEALER [address] [place] [address] [facility] [address] [place] [address] Referral ID Status Reason Start Date Expiration Date Visits Re quested Visits Authorized [id number] Open 12/19/2021 12/19/2022 1 1 Specialty Diagnoses / Procedures Referred By Contac t Referred To Contact Radiology Diagnoses Neck mass Procedures US HEAD NECK SOFT TISSUE THYROID Back, MD Felipe [address] [place] [address] Referral ID Status Reason Start Date Expiration Date Visits Re quested Visits Authorized [id number] Closed 05/27/2022 05/27/2023 1 1 Specialty Diagnoses / Procedures Referred By Thor t Referred To Contact Radiology Diagnoses Pain of foot, unspecified laterality Closed nondisplaced fracture of lateral cuneiform of left foot, initial encounter Procedures MRI FOOT LEFT W WO CONTRAST MRI FOOT LEFT W WO CONTRAST Robbin Sánchez, DPM [address] [facility], [address] [place] [id number] Referral ID Status Reason Start Date Expiration Date Visits Re quested Visits Authorized [id number] Closed 06/20/2022 06/20/2023 1 1 Reason Comments Education Class Specialty Diagnoses / Procedures Referred By Thor bernal Referred To Contact Diabetes Services Diagnoses Pre-diabetes Felipe Adam MD [address] [place] [address] [facility] [address] [place] [phone] Referral ID Status Reason Start Date Expiration Date V isits Requested Visits Authorized [id number] Open Specialty Services Required 06/30/2022 06/30/2023 2 2 Specialty Diagnoses / Procedures Referred By Thor bernal Referred To Contact Diabetes Services Diagnoses Pre-diabetes Felipe dAam MD [address] [place] [address] [facility] [address] [place] [address] Reason Comments Other Left foot charcot on -going since 06/2022. New x-rays today. 2nd of opinion. Care Teams (unrecognized sec tion and content) Audio Visual Tech Relationship Specialty Start Date End Date Felipe Adam MD [address] [place] [address] PCP - General Internal Medicine 11/14/11 Audio Visual Tech Relationship Specialty Start Date End Date Felipe Adam MD [address] [place] [address] PCP - General Internal Medicine 11/14/11 Audio Visual Tech Relationship Specialty Start Date End Date Back, MD Felipe [address] [place] [phone] PCP - General Internal Medicine 11/14/11 Audio Visual Tech Relationship Specialty Start Date End Date Back, MD Felipe [address] [place] [address] PCP - General Internal Medicine 11/14/11 Audio Visual Tech Relationship Specialty Start Date End Date Back, MD Felipe [address] [place] [phone] PCP - General Internal Medicine 11/14/11 Audio Visual Tech Relationship Specialty Start Date End Date Back, MD Felipe [address] [place] [address] PCP - General Internal Medicine 11/14/11 Audio Visual Tech Relationship Specialty Start Date End Date Back, MD Felipe [address] [place] [phone] PCP - General Internal Medicine 11/14/11 Team Status: Inactive Member Role Status Dates NON STAFF Primary Care Provider Active Tiffanie Casas MD Attending Provider Active Team Status: Active Member Role Status Dates NON STAFF Primary Care Provider Active Audio Visual Tech Relationship Specialty Start Date End Date Back, MD Felipe [address] [place] [phone] PCP - General Internal Medicine 11/14/11 Audio Visual Tech Relationship Specialty Start Date End Date Back, MD Felipe [address] [place] [id number] PCP - General Internal Medicine 11/14/11 Audio Visual Tech Relationship Specialty Start Date End Date Back, MD Felipe [address] [place] [id number] PCP - General Internal Medicine 11/14/11 Audio Visual Tech Relationship Specialty Start Date End Date Back, MD Felipe [address] [id number] PCP - General Internal Medicine 11/14/11 Audio Visual Tech Relationship Specialty Start Date End Date Back, MD Felipe [address] [facility] [place] [address] PCP - General Internal Medicine 11/14/11 Audio Visual Tech Relationship Specialty Start Date End Date Back, MD Felipe [address] [facility] [place] [address] PCP - General Internal Medicine 11/14/11 Audio Visual Tech Relationship Specialty Start Date End Date Back, MD Felipe [address] [facility] [place] [address] PCP - General Internal Medicine 11/14/11 Audio Visual Tech Relationship Specialty Start Date End Date Back, MD Felipe [address] [place] [address] PCP - General Internal Medicine 11/14/11 Audio Visual Tech Relationship Specialty Start Date End Date Back, MD Felipe [address] [place] [id number] PCP - General Internal Medicine 03/26/15 Audio Visual Tech Relationship Specialty Start Date End Date Back, MD Felipe [address] [place] [id number] PCP - General Internal Medicine 11/14/11 Goals [...] BE BASED ON THE PRIMARY CLINICAL RECORDS. [facility] [employer] [facility]. provides no warranty or guarantee of the accuracy or completeness of information in this document.
== END 2023-12-10 12:42 | disposition home or self-care (01) ==
LOC: CT 12:41
PROVIDERS: Visit Provider Podiatrist Foot & Ankle Surgery
DX: A52.16 Charcot's arthropathy (tabetic) (principal)
CPT/HCPCS: 73700

== ENCOUNTER 2023-12-30 13:20 | Outpatient (OUT) | payer BC, SELFPAY ==
--- NOTE | 2023-12-30 | XR_ITS ---
The [address] [address] Patient Name: CHASTITY GASPAR MRN: [id number] date: 1980 Sex: F Assigned Patient Location: Current Patient Location: Accession/Order Number: [id number] Exam Date: 12/30/2023 13:25 Report Date: 12/31/2023 07:14 At the request of: FRANCES HARRIS Procedure: XR foot LT min 3V PROCEDURE: XR foot LT min 3V HISTORY: LEFT FOOT PAIN COMPARISON: XR foot left 12/01/2023 FINDINGS: BONES:Advanced destructive osseous changes of the midfoot, unchanged. No appreciable acute fracture or bone lesion. Small calcaneal plantar spur. SOFT TISSUES:Stable wire-like metallic foreign body projecting between second and third metatarsals. EFFUSION:None visible. OTHER: Negative. XR/XR foot LT min 3V IMPRESSION: 1. No appreciable acute abnormality. 2. Grossly stable advanced degenerative changes of the midfoot suggestive of neuropathic joint. Electronically authenticated by: PIPER MERCEDES Date: 12/31/2023 07:14
== END 2023-12-30 13:21 | disposition home or self-care (01) ==
LOC: EC 13:20
PROVIDERS: Visit Provider Podiatrist Foot & Ankle Surgery
DX: M79.672 Pain in left foot (principal)
CPT/HCPCS: 73630

== ENCOUNTER 2024-02-09 15:20 | Outpatient (OUT) | payer BC, SELFPAY | END 2024-02-09 15:21 | disposition home or self-care (01) | LOC: PST 15:22 → LAB 15:23 | PROVIDERS: Visit Provider Podiatrist Foot & Ankle Surgery | DX: Z01.812 Encounter for preprocedural laboratory examination (principal); M21.172 Varus deformity, not elsewhere classified, left ankle; M14.672 Charcot's joint, left ankle and foot | CPT/HCPCS: 87081; 87150; 87186 ==

== ENCOUNTER 2024-02-11 14:25 | Outpatient (OUT) | payer BC, SELFPAY ==
--- NOTE | 2024-02-11 14:39 | ECG_ITS ---
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
--- NOTE | 2024-02-11 15:13 | P.GSHP_ITS ---
History of Present Illness History of Present Illness Chief complaint: varus deformity left ankle, charcot joint left Narrative: Patient presents for preadmission testing. The patient reports a long history of foot deformity and neuropathy. She states her foot is mostly numb, but after long periods of standing it does feel like she is walking on a rock. She takes several medications and uses cannabis Gummies to help with her pain. Review of Systems ROS Narrative REVIEW OF SYSTEMS: Negative except as stated in HPI, ten or more systems reviewed. Constitutional: No fever , chills, weakness ENT: No sore throat or epistaxis Cardiovascular: No edema, chest pain, palpitations, or activity intolerance Respiratory: No shortness of breath, cough, or wheezing Gastrointestinal: No abdominal pain, constipation, diarrhea, or vomiting Genitourinary: No dysuria or hematuria Neurological: No new numbness, tingling, weakness, or headache Psychiatric: No mood changes. [facility] Medical History (Updated 02/11/24 @ 14:58 by Jerica Moran NP) Arthritis ?M19.90 - Unspecified osteoarthritis, unspecified site (ICD-10) Neck pain ?M54.2 - Cervicalgia (ICD-10) Back pain ?M54.9 - Dorsalgia, unspecified (ICD-10) PTSD (post-traumatic stress disorder) ?F43.10 - Post-traumatic stress disorder, unspecified (ICD-10) Panic attacks ?F41.0 - Panic disorder [episodic paroxysmal anxiety] (ICD-10) Depression ?F32.A - Depression, unspecified (ICD-10) Anxiety ?F41.9 - Anxiety disorder, unspecified (ICD-10) Binge eating disorder ?F50.81 - Binge eating disorder (ICD-10) Snoring ?R06.83 - Snoring (ICD-10) Migraine ?G43.909 - Migraine, unspecified, not intractable, without status migrainosus (ICD-10) Urinary tract infection ?N39.0 - Urinary tract infection, site not specified (ICD-10) GERD (gastroesophageal reflux disease) ?K21.9 - Gastro-esophageal reflux disease without esophagitis (ICD-10) Hypertriglyceridemia, essential ?E78.1 - Pure hyperglyceridemia (ICD-10) Prediabetes ?R73.03 - Prediabetes (ICD-10) Thyroid nodule ?E04.1 - Nontoxic single thyroid nodule (ICD-10) Back pain with history of spinal surgery ?M54.9 - Dorsalgia, unspecified (ICD-10) ?Z98.890 - Other specified postprocedural states (ICD-10) Carpal tunnel syndrome ?G56.00 - Carpal tunnel syndrome, unspecified upper limb (ICD-10) Radiculopathy ?M54.10 - Radiculopathy, site unspecified (ICD-10) Spondylitis ?M46.90 - Unspecified inflammatory spondylopathy, site unspecified (ICD-10) Chronic kidney disease ?N18.9 - Chronic kidney disease, unspecified (ICD-10) Gout ?M10.9 - Gout, unspecified (ICD-10) Diabetic polyneuropathy ?E11.42 - Type 2 diabetes mellitus with diabetic polyneuropathy (ICD-10) Ankle contracture ?M24.573 - Contracture, unspecified ankle (ICD-10) Foot deformity ?M21.969 - Unspecified acquired deformity of unspecified lower leg (ICD-10) Diabetes ?E11.9 - Type 2 diabetes mellitus without complications (ICD-10) Neuropathy ?G62.9 - Polyneuropathy, unspecified (ICD-10) Osteoarthritis of ankle and foot ?M19.079 - Primary osteoarthritis, unspecified ankle and foot (ICD-10) Ankle pain ?M25.579 - Pain in unspecified ankle and joints of unspecified foot (ICD-10) Foot pain ?M79.673 - Pain in unspecified foot (ICD-10) Charcot's joint, left ankle and foot ?M14.672 - Charcot's joint, left ankle and foot (ICD-10) Varus deformity, not elsewhere classified, left ankle ?M21.172 - Varus deformity, not elsewhere classified, left ankle (ICD-10) Surgical History (Updated 02/11/24 @ 14:58 by Jerica Moran NP) S/P epidural steroid injection ?Z92.241 - Personal history of systemic steroid therapy (ICD-10) History of spinal surgery ?Z98.890 - Other specified postprocedural states (ICD-10) History of tonsillectomy ?Z90.89 - Acquired absence of other organs (ICD-10) History of cholecystectomy ?Z90.49 - Acquired absence of other specified parts of digestive tract (ICD- 10) History of hysterectomy ?Z90.710 - Acquired absence of both cervix and uterus (ICD-10) History of carpal tunnel surgery ?Z98.890 - Other specified postprocedural states (ICD-10) Family History (Updated 02/11/24 @ 14:22 by Jerica Moran NP) Other Family history of cancer Family history of diabetes mellitus Family history of hypertension Heart disease Social History (Updated 02/11/24 @ 14:50 by Jerica Moran NP) Within the past year, how often did you have a drink containing alcohol: never Score interpretation: A score less than 3 is consistent with normal alcohol consumption. Smoking status: Never smoker Non-prescribed substance use: cannabis (any form) Highest level of school completed/degree received: high school graduate Meds Home Medications and Allergies Home Medications ?Medication ?Instructions ?Recorded ?Confirmed ?Type baclofen 10 mg tablet 20 mg PO QPM 02/11/24 02/11/24 History biotin 1 mg capsule 1 mg PO DAILY 02/11/24 02/11/24 History calcium 100 mg capsule mg PO 02/11/24 History cephalexin 500 mg capsule 500 mg PO BID PRN UTI 02/11/24 02/11/24 History cholecalciferol (vitamin D3) 10 10 mcg PO DAILY 02/11/24 02/11/24 History mcg (400 unit) capsule famotidine 20 mg tablet 20 mg PO BID 02/11/24 02/11/24 History gemfibrozil 600 mg tablet 600 mg PO BID 02/11/24 02/11/24 History hydroxyzine HCl 25 mg tablet 25 mg PO Q8H PRN anxiety 02/11/24 02/11/24 History lisdexamfetamine 50 mg capsule 50 mg PO DAILY 02/11/24 02/11/24 History montelukast 10 mg tablet 10 mg PO DAILY 02/11/24 02/11/24 History nortriptyline 25 mg capsule 25 mg PO QPM 02/11/24 02/11/24 History pregabalin 300 mg capsule 300 mg PO BID 02/11/24 02/11/24 History propranolol 10 mg tablet 10 mg PO Q12H 02/11/24 02/11/24 History rimegepant 75 mg disintegrating 75 mg PO DAILY PRN migraine 02/11/24 02/11/24 History tablet (Nurtec ODT) headache ropinirole 0.5 mg tablet 0.5 mg PO QPM 02/11/24 02/11/24 History sertraline 100 mg tablet 200 mg PO Q24H 02/11/24 02/11/24 History thiamine mononitrate (vit B1) 100 100 mg PO DAILY 02/11/24 02/11/24 History mg tablet (Vitamin B-1 (mononitrate)) Allergies Allergy/AdvReac Type Severity Reaction Status Date / Time chlorhexidine Allergy Rash Verified 02/11/24 14:40 [From ChloraPrep Clear] isopropyl alcohol Allergy Rash Verified 02/11/24 14:40 [From ChloraPrep Clear] Exam Narrative Exam Narrative: Constitutional: Awake, alert, comfortable, well-appearing, nontoxic, interactive, vital signs as charted Head: Normocephalic, atraumatic Neck: Supple, normal appearance, normal range of motion, no meningeal signs, no lymphadenopathy Respiratory: No respiratory distress, breath sounds clear Cardiovascular: Regular rate and rhythm, strong and regular heart tones Musculoskeletal: Obvious deformity left foot with deformity noted in the plantar aspect, tenderness with palpation to the area, limited range of motion, decreased sensation to the foot and toes Skin: No rashes or induration, no lesions, only visible skin inspected Psychiatric: Oriented ?3, normal affect. Assessment and Plan Assessment and Plan (1) Varus deformity, not elsewhere classified, left ankle: (2) Charcot's joint, left ankle and foot: (3) Foot pain: (4) Ankle pain: (5) Osteoarthritis of ankle and foot: (6) Foot deformity: (7) Ankle contracture: Plan Left midfoot fusion with ostectomy, TNJ fusion, subtalar joint fusion, esperanza rocnemius recession and bone graft as needed scheduled with Dr. Chase February 15, 2024.
[2024-02-11 15:20] LABS: Basophils Absolute Auto 0.1 10^3/uL (0.0-0.1); Basophils Percent Auto 1.1 % (0.2-2.0); Eosinophils Absolute Auto 0.1 10^3/uL (0.0-0.7); Eosinophils Percent Auto 1.4 % (0.9-7.0); Hematocrit 34.3 % (36.0-48.0); Hemoglobin 11.3 g/dL (12.0-16.0); Immature Granulocytes Abs Auto 0.13 10^3/uL (0.00-0.03); Lymphocytes Absolute Auto 1.8 10^3/uL (1.2-3.8); Lymphocytes Percent Auto 27.4 % (20.5-60.0); Mean Corpuscular HGB Conc 32.9 g/dL (29.9-35.2); Mean Corpuscular Volume 84.9 fL (81.0-99.0); Mean Platelet Volume 11.4 fL (9.5-13.5); Monocytes Absolute Auto 0.5 10^3/uL (0.3-0.8); Monocytes Percent Auto 7.3 % (1.7-12.0); Neutrophils Percent Auto 60.8 % (43.0-75.0); Platelet Count 154 10^3/uL (150-450); Red Blood Count 4.04 10^6/uL (4.20-5.40); Red Cell Distribution Width 15.2 % (11.0-15.0); White Blood Count 6.6 10^3/uL (4.0-11.0)
[2024-02-11 16:05] LABS: Anion Gap 13.5; BUN Creatinine Ratio 14.3; Calcium 9.3 mg/dL (8.5-10.1); Carbon Dioxide 27.3 mmol/L (21.0-32.0); Chloride 105 mmol/L (98-107); Estimated GFR (African America 60 (>=60); Estimated GFR (Non-African Ame 49 (>=60); Glucose 104 mg/dL (74-106); Potassium 3.8 mmol/L (3.5-5.1); Sodium 142 mmol/L (136-145)
== END 2024-02-11 14:26 | disposition home or self-care (01) ==
PROVIDERS: Visit Provider Podiatrist Foot & Ankle Surgery
DX: Z01.810 Encounter for preprocedural cardiovascular examination (principal); Z01.812 Encounter for preprocedural laboratory examination; Z01.818 Encounter for other preprocedural examination; M21.172 Varus deformity, not elsewhere classified, left ankle; M14.672 Charcot's joint, left ankle and foot
CPT/HCPCS: 80048; 85025; 93005; G0463

== ENCOUNTER 2024-02-15 13:20 | Inpatient (IN) | payer BC, SELFPAY ==
[2024-02-11 15:07] VITALS: BP 118/78; PULSE 86; TEMP 36.2; O2SAT 96; BMI 38.2
[2024-02-15] VITALS (26 sets, daily range): BP systolic 113–229; BP diastolic 72–184; PULSE 62–104; TEMP 35.9–37.2; O2SAT 91–98; BMI 38.5; BMI 41.6; BMI 37.8
--- NOTE | 2024-02-15 | FL_ITS ---
[address] [address] Patient Name: CHASTITY GASPAR MRN: [id number] date: 1980 Sex: F Assigned Patient Location: SURGOUT Current Patient Location: [facility] Accession/Order Number: [id number] Exam Date: 02/15/2024 08:00 Report Date: 02/17/2024 08:31 At the request of: FRANCES HARRIS Procedure: FL fluoroscopy <1hr NON-READ EXAM: FL fluoroscopy <1hr NON-READ HISTORY: TECHNIQUE: FINDINGS: Please see Operative Report. Electronically authenticated by: RADIOLOGIST NO Date: 02/17/2024 08:31
--- OUTSIDE RECORDS SUMMARY | 2024-02-15 06:06 | XMS_ITS | CCD ---
Author Organization [facility] Care Team Providers Care Dispatcher Service Chief Name Role Phone Back, Felipe Unavailable Unavailable [...] Gosia Unavailable Unavailable Hartman, Gosia Unavailable Unavailable ZECHARIAH JV Admitting Unavailable CURT SUMMERS Referring Unavailable BACK, FELIPE Primary Care Unavailable MORGAN LUIS Consulting Unavailable NANY HOLLIS Attending Unavailable KIERA TERRY Consulting Unavailable LITA MCCRAY Consulting Unavailable Hartman, Dav Admitting Unavailable Hartman, Dav Attending Unavailable Andrey Early Admitting Unavailable Andrey Early Attending Unavailable Shanice Juares Admitting Unavailable Shanice Juares Attending Unavailable Melchor Calderon Admitting Unavailable Melchor Calderon Attending Unavailable TIFFANIE CASAS Attending Unavailable TIFFANIE CASAS Referring Unavailable BACK, FELIPE Primary Care Unavailable Back, Felipe Primary Care Provider Back, Felipe Primary Care Provider Back, Felipe Primary Care Provider Unavailabl e Back , Felipe Primary Care Provider Back , Felipe Primary Care Provider [phone] Back , Felipe Primary Care Provider BACK, FELIPE Primary Care Unavailable MUTNAL, AMAR Admitting Unavailable MUTNAL, AMAR Attending Unavailable Back , Felipe Primary Care Provider [phone] NON STAFF Primary Care Provider UnavailMD Tiffanie Mixon. Attending Provider Back , Felipe Primary Care Provider [phone] YOON COBB Referring Unavailable BACK, FELIPE Primary Care Unavailable Back , Felipe Primary Care Provider KALPESH ARENAS Attending Unavail able BACK, FELIPE Primary Care Unavailable Back , Felipe Primary Care Provider FRANCES HARRIS Admitting Unavailable HIGHLANDER, FRANCES Weston Attending Unavailable HIGHLANDERFRANCES Consulting Unavailable HIGHLANDERFRANCES Admitting Unavailable HIGHLANDER, FRANCES Weston Attending Unavailable [facility], DR PIPER Ackerman Consulting Unavailable HIGHLANDERFRANCES Consulting Unavailable HIGHLANDERFRANCES Admitting Unavailable HIGHLANDER, FRANCES Weston Attending Unavailable [facility], DR EMILY Riojas Consulting Unavailable HIGHLANDERFRANCES Consulting Unavailable Back , Felipe Primary Care Provider [phone] ROBBIN SHOOK II Admitting Un available HASSMANN II, ROBBIN DAHL Referring Un available BACK, FELIPE Primary Care Unavailable HASSMANN II, ROBBIN DAHL Attending Un available BACK, FELIPE Primary Care Unavailable BACK, FELIPE Primary Care Unavailable HASSMANN II, ROBBIN DAHL Attending Un available Back , Felipe Primary Care Provider TIFFANIE CASAS Attending Unavailable TIFFANIE CASAS Attending Unavailable BACK, FELIPE Referring Unavailable BACK, FELIPE Primary Care Unavailable BACK, FELIPE Referring Unavailable BACK, FELIPE Primary Care Unavailable BACK, FELIPE Primary Care Unavailable CASASTIFFANIE Referring Unavailable BACK, FELIPE Primary Care Unavailable BACK, FELIPE Referring Unavailable BACK, FELIPE Primary Care Unavailable BACK, FELIPE Referring Unavailable BACK, FELIPE Primary Care Unavailable CASASTIFFANIE Referring Unavailable JERICA KRISHNAMURTHY Referring Unavailable BACK, FELIPE Primary Care Unavailable Allergies Allergy Classification Reported Allergen(s) Allergy Type Date of Onset Reaction(s) Facility (3 sources) Chlorhexidine; Translations: [CHLORHEXIDINE] Drug Allergy 03-03-2023 Rash [facility] Medications Current Medications Medication Drug Class(es) Dates Sig (Normalized) Sig (Original) acetaminophen 325 mg / HYDROcodone bitartrate 5 mg oral tablet (10 sources) Opioid Agonist Start: 03-12-2019 HYDROcodone-acetam inophen (NORCO) 5-325 MG per tablet take 1 tablet by prabhjot th every eight hours as needed hydroCODone-acetaminophen 5-325 [...] oral tablet (1 source) alpha-Adrenergic Agonist, Uncompetitive M-rmjdpx-V-aspartat e Receptor Antagonist, Sigma-1 Agonist Start: 02-13-2021 [...] Start: 2022 take 1 tablet by prabhjot twice daily famotidine (PEPCID) 20 MG tablet [...] Start: 04-11-2022 take 1 tablet by prabhjot once daily montelukast (SINGULAIR) 10 MG tablet [...] (BMI) of 38.0 to 38.9 in adult ([facility]) Take 1 tablet by mouth every morning [...] (BMI) of 40.0 to 44.9 in adult ([facility]) Take 1 capsule by mouth every morning [...] Start: 08-25-2018 take 1 capsule by mo [facility] three times daily pregabalin (LYRICA) 150 MG [...] Start: 04-02-2021 take 1 tablet by prabhjot three times daily rOPINIRole (REQUIP) 1 MG [...] Start: 07-30-2020 take 2 tablets by mo [facility] once daily sertraline (ZOLOFT) 100 MG tablet Take 2 tablets by mouth daily Currently decreasing this medication 0 07/30/2020 Active Start: 07-30-2020 take 1 tablet by prabhjot once daily sertraline (ZOLOFT) 100 MG tablet Take 100 mg by mouth daily Currently decreasing this medication 0 07/30/2020 Active Start: 07-06-2019 take 2 tablets by mo [facility] once daily sertraline (ZOLOFT) 50 MG tablet [...] Problem Date Documented Date Episodic/Chronic Abdominal pain (1 source) Female genital organ symptoms; Translations: [Pelvic and perineal pain] Episodic Anxiety disorders (20 sources) Anxiety; Translations: [Mixed [...] IN LEFT ANKLE] Onset: 3 Episodic Other screening for suspected [...] Onset: 0 05-11-2020 Chronic Residual codes; unclassified (1 source) Obstructive sleep apnea (adult) (pediatric); Translations: [Obstructive sleep apnea (adult) (pediatric)] Onset: 4 Chronic Residual codes; unclassified (2 sources) Localized edema; Translations: [Localized edema] Onset: 3 Episodic Septicemia (except in labor) [...] Problem Classification Problem Date Documented Date Episodic/Chronic Bacterial infection; unspecified site (20 sources) Methicillin [...] of skin] Onset: 02-05-2018 08-03-2017 Episodic Other SOUND ASSISTANT infection and poliomyelitis (20 sources) Extradural and [...] of skin, unspecified] Onset: 09-16-2017 09-29-2017 Episodic Other non-traumatic joint disorders (2 sources) Pain in right wrist; Translations: [Pain in right wrist] Onset: 08-23-2023 Episodic Residual codes; unclassified (1 source) Pain, unspecified; Translations: [Pain, unspecified] Onset: 08-23-2023 Episodic Urinary tract infections (8 sources) Acute cystitis; Translations: [Acute cystitis with hematuria] Onset: 05-17-2023 Episodic Results Test Name Value Interpretation Reference Range Facility CBC with Diffon 01-29-2024 Abs. Basophil 0.04 k/uL Normal 0.00-0.20 [facility] Comment on above: Performed By: #### L DLDIR, LIPR, GLYHGB #### [place] [address] Management And Budget Analyst: Placido Pierce MD #### NANCY BECERRA ZFAST, TSHX #### [facility] [address] [place] [address] Management And Budget Analyst: Emily George MD Abs.Imm.Granulocyte 0.12 k/uL Normal 0.00-0.30 [facility] Comment on above: Performed By: #### L DLDIR, LIPR, GLYHGB #### [place] [id number] Management And Budget Analyst: Placido Pierce MD #### NANCY BECERRA ZFAST, TSHX #### [facility] [address] [place] [phone] Management And Budget Analyst: Emily George MD Abs.Neutrophil (Seg) 3.26 k/uL Normal 2.5-7.0 [facility] Comment on above: Performed By: #### L DLDIR, LIPR, GLYHGB #### [facility] [address] [place] [address] Management And Budget Analyst: Placido Pierce MD #### CDP, CP, ZFAST, TSHX #### [facility] [address] [place], [place] [phone] Management And Budget Analyst: Emily George MD Basophils/100 WBC (Bld) 1 % Normal 0-2 [facility] Comment on above: Performed By: #### L DLDIR, LIPR, GLYHGB #### [place] [address] [place] [address] Management And Budget Analyst: Placido Pierce MD #### CDP, CP, ZFAST, TSHX #### [facility] [address] [place], [place] [phone] Management And Budget Analyst: Emily George MD Eosinophils (Bld) [#/Vol] 0.06 10*3/uL Normal 0.00-0.40 [facility] Comment on above: Performed By: #### L DLDIR, LIPR, GLYHGB #### [address] [address] Management And Budget Analyst: Placido Pierce MD #### CDP, CP, ZFAST, TSHX #### [facility] [address] [place], [place] [id number] Management And Budget Analyst: Emily George MD Eosinophils/100 WBC (Bld) 1 % Normal 0-5 [facility] Comment on above: Performed By: #### L DLDIR, LIPR, GLYHGB #### [address] [phone] Management And Budget Analyst: Placido Pierce MD #### CDP, CP, ZFAST, TSHX #### [facility] [address] [place], [place] [phone] Management And Budget Analyst: Emily George MD Erythrocyte distribution width (RBC) [Ratio] 15.2 % Normal 12.1-15.2 [facility] Comment on above: Performed By: #### L DLDIR, LIPR, GLYHGB #### [address] [phone] Management And Budget Analyst: Placido Pierce MD #### CDP, CP, ZFAST, TSHX #### [facility] [address] [place] [phone] Management And Budget Analyst: Emily George MD Hematocrit (Bld) [Volume fraction] 35.5 % Low 36.0-46.0 [facility] Comment on above: Performed By: #### L DLDIR, LIPR, GLYHGB #### [address] [id number] Management And Budget Analyst: Placido Pierce MD #### CDP, CP, ZFAST, TSHX #### [facility] [address] [place] [phone] Management And Budget Analyst: Emily George MD Hemoglobin (Bld) [Mass/Vol] 11.9 g/dL Low 12.0-16.0 [facility] Comment on above: Performed By: #### L DLDIR, LIPR, GLYHGB #### [address] [phone] Management And Budget Analyst: Placido Pierce MD #### CDP, CP, ZFAST, TSHX #### [facility] [address] [place] [phone] Management And Budget Analyst: Emily George MD Immature granulocytes/100 WBC (Bld) 2 % Normal 0-5 [facility] Comment on above: Performed By: #### L DLDIR, LIPR, GLYHGB #### [address] [phone] Management And Budget Analyst: Placido Pierce MD #### CDP, CP, ZFAST, TSHX #### [facility] [address] [place], [place] [phone] Management And Budget Analyst: Emily George MD Lymphocytes (Bld) [#/Vol] 1.66 10*3/uL Normal 1.00-4.80 [facility] Comment on above: Performed By: #### L DLDIR, LIPR, GLYHGB #### [address] [phone] Management And Budget Analyst: Placido Pierce MD #### CDP, CP, ZFAST, TSHX #### [facility] [address] [place], [place] [phone] Management And Budget Analyst: Emily George MD Lymphocytes/100 WBC (Bld) 30 % Normal 15-40 [facility] Comment on above: Performed By: #### L DLDIR, LIPR, GLYHGB #### [address] [id number] Management And Budget Analyst: Placido Pierce MD #### CDP, CP, ZFAST, TSHX #### [facility] [address] [place], [place] [phone] Management And Budget Analyst: Emily George MD MCH (RBC) [Entitic mass] 28.4 pg Normal 26.0-34.0 [facility] Comment on above: Performed By: #### L DLDIR, LIPR, GLYHGB #### [address] [phone] Management And Budget Analyst: Placido Pierce MD #### CDP, CP, ZFAST, TSHX #### [facility] [address] [place] [address] Management And Budget Analyst: Emily George MD MCHC (RBC) [Mass/Vol] 33.5 g/dL Normal 31.0-37.0 [facility] Comment on above: Performed By: #### L DLDIR, LIPR, GLYHGB #### [address] [phone] Management And Budget Analyst: Placido Pierce MD #### CDP, CP, ZFAST, TSHX #### [facility] [address] [place] [address] Management And Budget Analyst: Emily George MD MCV (RBC) [Entitic vol] 84.7 fL Normal 80.0-100.0 [facility] Comment on above: Performed By: #### L DLDIR, LIPR, GLYHGB #### [address] [address] Management And Budget Analyst: Placido Pierce MD #### CDP, CP, ZFAST, TSHX #### [facility] [address] [place], [place] [phone] Management And Budget Analyst: Emily George MD Monocytes (Bld) [#/Vol] 0.43 10*3/uL Normal 0.00-1.00 [facility] Comment on above: Performed By: #### L DLDIR, LIPR, GLYHGB #### [address] [address] Management And Budget Analyst: Placido Pierce MD #### CDP, CP, ZFAST, TSHX #### [facility] [address] [place], [place] [phone] Management And Budget Analyst: Emily George MD Monocytes/100 WBC (Bld) 8 % Normal 4-8 [facility] Comment on above: Performed By: #### L DLDIR, LIPR, GLYHGB #### [address] [address] Management And Budget Analyst: Placido Pierce MD #### CDP, CP, ZFAST, TSHX #### [facility] [address] [place], [place] [phone] Management And Budget Analyst: Emily George MD Neutrophil (Seg) 58 % Normal 47-75 [facility] Comment on above: Performed By: #### L DLDIR, LIPR, GLYHGB #### [facility] [address] [place] [address] Management And Budget Analyst: Placido Pierce MD #### CDP, CP, ZFAST, TSHX #### [facility] [address] [place] [address] Management And Budget Analyst: Emily George MD Platelet mean volume (Bld) [Entitic vol] 10.8 fL Normal 6.0-12.0 [facility] Comment on above: Performed By: #### L DLDIR, LIPR, GLYHGB #### [address] [address] Management And Budget Analyst: Placido Pierce MD #### CDP, CP, ZFAST, TSHX #### [facility] [address] [place], [place] [phone] Management And Budget Analyst: Emily George MD Platelets (Bld) [#/Vol] 151 10*3/uL Normal 140-450 [facility] Comment on above: Performed By: #### L DLDIR, LIPR, GLYHGB #### [address] [address] Management And Budget Analyst: Placido Pierce MD #### CDP, CP, ZFAST, TSHX #### [facility] [address] [place], [place] [phone] Management And Budget Analyst: Emily George MD RBC (Bld) [#/Vol] 4.19 10*6/uL Normal 4.00-5.20 [facility] Comment on above: Performed By: #### L DLDIR, LIPR, GLYHGB #### [address] [address] Management And Budget Analyst: Placido Pierce MD #### CDP, CP, ZFAST, TSHX #### [facility] [address] [place], [place] [phone] Management And Budget Analyst: Emily George MD WBC (Bld) [#/Vol] 5.6 10*3/uL Normal 3.5-11.0 [facility] Comment on above: Performed By: #### L DLDIR, LIPR, GLYHGB #### [place] [address] [place], [place] [phone] Management And Budget Analyst: Placido Pierce MD #### CDP, CP, ZFAST, TSHX #### [facility] [address] [place], [place] [phone] Management And Budget Analyst: Emily George MD Comp Metabolic Profon 2023 Albumin [Mass/Vol] 4.4 g/dL Normal 3.5-5.2 [facility] Comment on above: Performed By: #### L DLDIR, LIPR, GLYHGB #### [address] [phone] Management And Budget Analyst: Placido Pierce MD #### CDP, CP, ZFAST, TSHX #### [facility] [address] [place], [place] [phone] Management And Budget Analyst: Emily George MD Alkaline Phos 95 U/L Normal 35-104 [facility] Comment on above: Performed By: #### L DLDIR, LIPR, GLYHGB #### [address] [phone] Management And Budget Analyst: Placido Pierce MD #### CDP, CP, ZFAST, TSHX #### [facility] [address] [place], [place] [phone] Management And Budget Analyst: Emily George MD ALT [Catalytic activity/Vol] 19 U/L Normal 5-33 [facility] Comment on above: Performed By: #### L DLDIR, LIPR, GLYHGB #### [address] [phone] Management And Budget Analyst: Placido Pierce MD #### CDP, CP, ZFAST, TSHX #### [facility] [address] [place], [place] [phone] Management And Budget Analyst: Emily George MD Anion gap [Moles/Vol] 16 mmol/L Normal 9-17 [facility] Comment on above: Performed By: #### L DLDIR, LIPR, GLYHGB #### [address] [phone] Management And Budget Analyst: Placido Pierce MD #### CDP, CP, ZFAST, TSHX #### [facility] [address] [place], [place] [phone] Management And Budget Analyst: Emily George MD AST [Catalytic activity/Vol] 22 U/L Normal <32 [facility] Comment on above: Performed By: #### L DLDIR, LIPR, GLYHGB #### [address] [phone] Management And Budget Analyst: Placido Pierce MD #### CDP, CP, ZFAST, TSHX #### [facility] [address] [place], [place] [phone] Management And Budget Analyst: Emily George MD Bilirubin [Mass/Vol] 0.5 mg/dL Normal 0.3-1.2 [facility] Comment on above: Performed By: #### L DLDIR, LIPR, GLYHGB #### [address] [phone] Management And Budget Analyst: Placido Pierce MD #### CDP, CP, ZFAST, TSHX #### [facility] [address] [place], [place] [phone] Management And Budget Analyst: Emily George MD BUN/CRE Ratio 21 High 9-20 [facility] Comment on above: Performed By: #### L DLDIR, LIPR, GLYHGB #### [address] [phone] Management And Budget Analyst: Placido Pierce MD #### CDP, CP, ZFAST, TSHX #### [facility] [address] [place], [place] [phone] Management And Budget Analyst: Emily George MD Calcium [Mass/Vol] 9.3 mg/dL Normal 8.6-10.4 [facility] Comment on above: Performed By: #### L DLDIR, LIPR, GLYHGB #### [address] [phone] Management And Budget Analyst: Placido Pierce MD #### CDP, CP, ZFAST, TSHX #### [facility] [address] [place], [place] [phone] Management And Budget Analyst: Emily George MD Chloride [Moles/Vol] 99 mmol/L Normal 98-107 [facility] Comment on above: Performed By: #### L DLDIR, LIPR, GLYHGB #### [address] [phone] Management And Budget Analyst: Placido Pierce MD #### CDP, CP, ZFAST, TSHX #### [facility] [address] [place], [place] [phone] Management And Budget Analyst: Emily George MD CO2 [Moles/Vol] 21 mmol/L Normal 20-31 [facility] Comment on above: Performed By: #### L DLDIR, LIPR, GLYHGB #### [address] [phone] Management And Budget Analyst: Placido Pierce MD #### CDP, CP, ZFAST, TSHX #### [facility] [address] [place], [place] [phone] Management And Budget Analyst: Emily George MD Creatinine [Mass/Vol] 1.2 mg/dL High 0.5-0.9 [facility] Comment on above: Performed By: #### L DLDIR, LIPR, GLYHGB #### [facility] [address] [place], [place] [phone] Management And Budget Analyst: Placido Pierce MD #### NANCY BECERRA ZFAST, TSHX #### [facility] [address] [place] [address] Management And Budget Analyst: Emily George MD GFR/1.73 sq M.predicted among non-blacks MDRD (S/P/Bld) [Vol rate/Area] 57 mL/min/{1.73_m2} Low >60 [facility] Comment on above: Result Comment: These results [...] affects renal tubular secretion. Performed By: #### L DLDIR, LIPR, GLYHGB #### [place] [address] [place], [place] [phone] Management And Budget Analyst: Placido Pierce MD #### NANCY BECERRA ZFAST, TSHX #### [facility] [address] [place] [address] Management And Budget Analyst: Emily George MD Glucose [Mass/Vol] 152 mg/dL High 70-99 [facility] Comment on above: Performed By: #### L DLDIR, LIPR, GLYHGB #### [place] [address] [place], [place] [phone] Management And Budget Analyst: Placido Pierce MD #### NANCY BECERRA ZFAST, TSHX #### [facility] [address] [place] [address] Management And Budget Analyst: Emily George MD Potassium [Moles/Vol] 3.6 mmol/L Low 3.7-5.3 [facility] Comment on above: Performed By: #### L VIRGINIAIR, LIPR, GLYHGB #### [facility] [address] [place] [address] Management And Budget Analyst: Placido Pierce MD #### CDP, CP, ZFAST, TSHX #### [facility] [address] [place] [address] Management And Budget Analyst: Emily George MD Protein [Mass/Vol] 7.5 g/dL Normal 6.4-8.3 [facility] Comment on above: Performed By: #### L DLDIR, LIPR, GLYHGB #### [address] [address] Management And Budget Analyst: Placido Pierce MD #### CDP, CP, ZFAST, TSHX #### [facility] [address] [place], [place] [phone] Management And Budget Analyst: Emily George MD Sodium [Moles/Vol] 136 mmol/L Normal 135-144 [facility] Comment on above: Performed By: #### L DLDIR, LIPR, GLYHGB #### [address] [address] Management And Budget Analyst: Placido Pierce MD #### CDP, CP, ZFAST, TSHX #### [facility] [address] [place], [place] [phone] Management And Budget Analyst: Emily George MD Urea nitrogen [Mass/Vol] 25 mg/dL High 6-20 [facility] Comment on above: Performed By: #### L DLDIR, LIPR, GLYHGB #### [address] [address] Management And Budget Analyst: Placido Pierce MD #### CDP, CP, ZFAST, TSHX #### [facility] [address] [place], [place] [phone] Management And Budget Analyst: Emily George MD Hemoglobin A1Con 01-29-2024 Glucose [Mass/Vol] 123 mg/dL Normal [facility] Comment on above: Result Comment: The ADA and AACC recommend providing the estimated average glucose result to permit better patient understanding of their HBA1c result. Performed By: #### L DLDIR, LIPR, GLYHGB #### [address] [address] Management And Budget Analyst: Placido Pierce MD #### CDP, CP, ZFAST, TSHX #### [facility] [address] [place] [address] Management And Budget Analyst: Emily George MD HbA1c (Bld) [Mass fraction] 5.9 % Normal 4.0-6.0 [facility] Comment on above: Performed By: #### L DLDIR, LIPR, GLYHGB #### [address] [phone] Management And Budget Analyst: Placido Pierce MD #### HERNAN, CP, ZFAST, TSHX #### [facility] [address] [place], [place] [phone] Management And Budget Analyst: Emily George MD LDL Chol, Directon LDL Chol, Direct 114 mg/dL Normal [facility] Comment on above: Performed By: #### L DLDIR, LIPR, GLYHGB #### [facility] [address] [place] [id number] Management And Budget Analyst: Placido Pierce MD #### CDP, CP, ZFAST, TSHX #### [facility] [address] [place], [place] [phone] Management And Budget Analyst: Emily George MD Lipid Profileon 01-29-2024 Cholesterol [Mass/Vol] 190 mg/dL Normal 0-199 [facility] Comment on above: Result Comment: Cholesterol Guidelines: <200 Desirable 200-240 Borderline >240 Undesirable Performed By: #### L DLDIR, LIPR, GLYHGB #### [address] [address] Management And Budget Analyst: Placido Pierce MD #### CDP, CP, ZFAST, TSHX #### [facility] [address] [place], [place] [phone] Management And Budget Analyst: Emily George MD Cholesterol in HDL [Mass/Vol] 30 mg/dL Low >40 [facility] Comment on above: Result Comment: HDL Guidelines: <40 Undesirable 40-59 Borderline >59 Desirable Performed By: #### L DLDIR, LIPR, GLYHGB #### [facility] [address] [place] [address] Management And Budget Analyst: Placido Pierce MD #### CDP, CP, ZFAST, TSHX #### [facility] [address] [place], [place] [phone] Management And Budget Analyst: Emily George MD Cholesterol,LDL Can not be calculated Normal 0-100 [facility] Comment on above: Result Comment: LDL Guidelines: <100 Desirable 100-129 Near to/above Desirable 130-159 Borderline >159 Undesirable Direct (measured) LDL and calculated LDL are not interchangeable tests. Performed By: #### L DLDIR, LIPR, GLYHGB #### [place] [address] [place] [address] Management And Budget Analyst: Placido Pierce MD #### CDP, CP, ZFAST, TSHX #### [facility] [address] [place], [place] [id number] Management And Budget Analyst: Emily George MD Cholesterol,VLDL Can not be calculated Normal [facility] Comment on above: Performed By: #### L DLDIR, LIPR, GLYHGB #### [address] [address] Management And Budget Analyst: Placido Pierce MD #### CDP, CP, ZFAST, TSHX #### [facility] Lab [address] [place], [place] [phone] Management And Budget Analyst: Emily George MD Cholesterol.total/Cho lesterol in HDL [Mass ratio] 6.0 {ratio} Normal [facility] Comment on above: Performed By: #### L DLDIR, LIPR, GLYHGB #### [address] [address] Management And Budget Analyst: Placido Pierce MD #### CDP, CP, ZFAST, TSHX #### [facility] Lab [address] [place], [place] [id number] Management And Budget Analyst: Emily George MD Triglyceride [Mass/Vol] 443 mg/dL High <150 [facility] Comment on above: Result Comment: Triglyceride Guidelines: <150 Desirable 150-199 Borderline 200-499 High >499 Very high Based on AHA Guidelines for fasting triglyceride, July 2012. Performed By: #### L DLDIR, LIPR, GLYHGB #### [address] [address] Management And Budget Analyst: Placido Pierce MD #### CDP, CP, ZFAST, TSHX #### [facility] Lab [address] [place], [place] [phone] Management And Budget Analyst: Emily George MD Patient fasting?on 4 Patient fasting? YES Normal [facility] Comment on above: Performed By: #### L DLDIR, LIPR, GLYHGB #### [address] [phone] Management And Budget Analyst: Placido Pierce MD #### CDP, CP, ZFAST, TSHX #### [facility] Lab [address] [place], [place] [phone] Management And Budget Analyst: Emily George MD TSH w/reflex to FT4on 2023 Thyroid Stim. Horm. 1.77 uIU/mL Normal 0.30-5.00 [facility] Comment on above: Performed By: #### L DLDIR, LIPR, GLYHGB #### [address] [address] Management And Budget Analyst: Placido Pierce MD #### CDP, CP, ZFAST, TSHX #### [facility] Lab [address] [place] [address] Management And Budget Analyst: Emily George MD XR WRIST RIGHT (MIN 3 VIEWS) on [...] Lauren Jr., MD 08/24/23 Final result Normal [facility] Lipid Panelon 06-15-2023 Cholesterol [Mass/Vol] 174 mg/dL NINF - 200 mg/dL [facility] Comment on above: Cholesterol Guidelines: <200 Desirable 200-240 Borderline >240 Undesirable Cholesterol in HDL [Mass/Vol] 30 mg/dL Low 40 - PINF mg/dL [facility] Comment on above: HDL Guidelines: <40 Undesirable 40-59 Borderline >59 Desirable Cholesterol in LDL [Mass/Vol] 77 mg/dL 0 - 130 mg/dL [facility] Comment on above: LDL Guidelines: <100 Desirable 100-129 Near to/above Desirable 130-159 Borderline >159 Undesirable Direct (measured) LDL and calculated LDL are not interchangeable tests. Cholesterol.total/Cho lesterol in HDL [Mass ratio] 5.8 {ratio} High NINF - 5 [facility] Interpretation and review of laboratory results Abnormal [facility] Triglyceride [Mass/Vol] 334 mg/dL High NINF - 150 mg/dL [facility] Comment on above: Triglyceride Guidelines: <150 Desirable 150-199 Borderline 200-499 High >499 Very high Based on AHA Guidelines for fasting triglyceride, July 2012. [facility] Lipid Profileon 06-15-2023 Cholesterol [Mass/Vol] 174 mg/dL Normal <200 [facility] Comment on above: Result Comment: Cholesterol Guidelines: <200 Desirable 200-240 Borderline >240 Undesirable Performed By: #### L IPR ####[address] [address] Lab Director: Placido Pierce MD Cholesterol in HDL [Mass/Vol] 30 mg/dL Low >40 [facility] Comment on above: Result Comment: HDL Guidelines: <40 Undesirable 40-59 Borderline >59 Desirable Performed By: #### L IPR ####[address] [address] Lab Director: Placido Pierce MD Cholesterol in LDL [Mass/Vol] 77 mg/dL Normal 0-130 [facility] Comment on above: Result Comment: LDL Guidelines: <100 Desirable 100-129 Near to/above Desirable 130-159 Borderline >159 Undesirable Direct (measured) LDL and calculated LDL are not interchangeable tests. Performed By: #### L IPR ####[address] [address] Lab Director: Placido Pierce MD Cholesterol.total/Cho lesterol in HDL [Mass ratio] 5.8 {ratio} High <5 [facility] Comment on above: Performed By: #### L IPR ####[address] [address] Lab Director: Placido Pierce MD Triglyceride [Mass/Vol] 334 mg/dL High <150 [facility] Comment on above: Result Comment: Triglyceride Guidelines: <150 Desirable 150-199 Borderline 200-499 High >499 Very high Based on AHA Guidelines for fasting triglyceride, July 2012. Performed By: #### L IPR ####[address] [address] Lab Director: Placido Pierce MD US THYROIDon 06-15-2023 US [...] Lauren Jr., MD 06/15/23 Final result Normal [facility] PTH, Intacton 05-17-2023 PTH, Intact 47.1 pg/mL Normal 14.0-72.0 [facility] Comment on above: Result Comment: SAMP LES FROM PATIENTS ROUTINELY RECEIVING HIGH DOSE BIOTIN THERAPY MAY SHOW FALSELY DEPRESSED RESULTS. ADDITIONAL INFORMATION MAY BE REQUIRED FOR DIAGNOSIS. Performed By: #### R ENP ####[facility] [id number] [place], [place] [address])[phone] Director: Emily George MD#### VD25, PTHNCA, URTPRT ####[address] [place] [address] Lab Director: Placido Pierce MD Protein,Tot,[place] Uron 2022 Creatinine [Mass/Vol] 146.1 mg/dL Normal 28.0-217.0 [facility] Comment on above: Performed By: #### R ENP ####[facility] [address] [place] [address] Lab Director: Emily George MD#### VD25, PTHNCA, URTPRT ####[address] [place] [address] Lab Director: Placido Pierce MD Tot Prot. Conc. 10 mg/dL Normal [facility] Comment on above: Result Comment: No n ormal range established. Performed By: #### R ENP ####[facility] [address] [place], [place] [id number] Lab Director: Emily George MD#### VD25, PTHNCA, URTPRT ####[facility] [place], [place] [id number] Lab Director: Placido Pierce MD TP/Cre Ratio 0.07 Normal 0.00-0.20 [facility] Comment on above: Performed By: #### R ENP ####[facility] [address] [place], [place] [phone] Lab Director: Emily George MD#### VD25, PTHNCA, URTPRT ####[address] [place], [place] 8861608 Lab Director: Placido Pierce MD Renal Function Panelon 05-17 Albumin [Mass/Vol] 4.1 g/dL Normal 3.5-5.2 [facility] Comment on above: Performed By: #### R ENP #### [facility] Lab [address] [place], [place] [phone] Management And Budget Analyst: Emily George MD #### VD25, PTHEMILYA, URTPRT #### [address] [place], [place] 9757108 Management And Budget Analyst: Placido Pierce MD Anion gap [Moles/Vol] 7 mmol/L Low 9-17 [facility] Comment on above: Performed By: #### R ENP #### [facility] Lab [address] [place], [place] [phone] Management And Budget Analyst: Emily George MD #### VD25, PTHNCA, URTPRT #### [facility] [address] [place], [place] [phone] Management And Budget Analyst: Placido Pierce MD BUN/CRE Ratio 15 Normal 9-20 [facility] Comment on above: Performed By: #### R ENP #### [facility] Lab [address] [place], [place] [phone] Management And Budget Analyst: Emily George MD #### VD25, PTHNCA, URTPRT #### [address] [place], [place] 6277608 Management And Budget Analyst: Placido Pierce MD Calcium [Mass/Vol] 9.5 mg/dL Normal 8.6-10.4 [facility] Comment on above: Performed By: #### R ENP #### [facility] Lab [address] [place], [place] [phone] Management And Budget Analyst: Emily George MD #### VD25, PTHNCA, URTPRT #### [address] [place], [place] 1639208 Management And Budget Analyst: Placido Pierce MD Chloride [Moles/Vol] 101 mmol/L Normal 98-107 [facility] Comment on above: Performed By: #### R ENP #### [facility] Lab [address] [place], [place] [phone] Management And Budget Analyst: Emily George MD #### JEZ25, PTHNCA, URTPRT #### [address] [place], [place] 7736708 Management And Budget Analyst: Placido Pierce MD CO2 [Moles/Vol] 29 mmol/L Normal 20-31 [facility] Comment on above: Performed By: #### R ENP #### [facility] [address] [place], [place] [phone] Management And Budget Analyst: Emily George MD #### VD25, PTHNCA, URTPRT #### [address] [place], [place] 7549408 Management And Budget Analyst: Placido Pierce MD Creatinine [Mass/Vol] 1.1 mg/dL High 0.5-0.9 [facility] Comment on above: Performed By: #### R ENP #### [facility] Lab [address] [place], [place] [phone] Management And Budget Analyst: Emily George MD #### VD25, PTHEMILYA, URTPRT #### [id number] [place], [place] [id number] Management And Budget Analyst: Placido Pierce MD GFR/1.73 sq M.predicted among non-blacks MDRD (S/P/Bld) [Vol rate/Area] mL/min/{1.73_m2} Normal >60 [facility] Comment on above: Result Comment: These results [...] affects renal tubular secretion. Performed By: #### R ENP #### [facility] Lab [address] [place], [place] [phone] Management And Budget Analyst: Emily George MD #### JOSE, PTHEMILYA, URTPRT #### [address] [address] Management And Budget Analyst: Placido Pierce MD Glucose [Mass/Vol] 105 mg/dL High 70-99 [facility] Comment on above: Performed By: #### R ENP #### [facility] Lab [address] [place], [place] [phone] Management And Budget Analyst: Emily George MD #### VD25, PTHNCA, URTPRT #### [address] [place] [address] Management And Budget Analyst: Placido Pierce MD Phosphorus, Inorg. 3.0 mg/dL Normal 2.6-4.5 [facility] Comment on above: Performed By: #### R ENP #### [facility] Lab [address] [place], [place] [phone] Management And Budget Analyst: Emily George MD #### VD25, PTHNCA, URTPRT #### [address] [place], [place] 4269108 Management And Budget Analyst: Placido Pierce MD Potassium [Moles/Vol] 4.3 mmol/L Normal 3.7-5.3 [facility] Comment on above: Performed By: #### R ENP #### [facility] Lab [address] [place], [place] [phone] Management And Budget Analyst: Emily George MD #### VD25, PTHNCA, URTPRT #### [address] [id number] Management And Budget Analyst: Placido Pierce MD Sodium [Moles/Vol] 137 mmol/L Normal 135-144 [facility] Comment on above: Performed By: #### R ENP #### [facility] Lab [address] [place], [place] [phone] Management And Budget Analyst: Emily George MD #### VD25, PTHEMILYA, URTPRT #### [address] [id number] Management And Budget Analyst: Placido Pierce MD Urea nitrogen [Mass/Vol] 17 mg/dL Normal 6-20 [facility] Comment on above: Performed By: #### R ENP #### [facility] Lab [address] [place], [place] [phone] Management And Budget Analyst: Emily George MD #### VD25, PTHNCA, URTPRT #### [address] [phone] Management And Budget Analyst: Placido Pierce MD Vitamin D 25 OHon 05-17-2023 Vitamin D 25 [place] 53.1 ng/mL Normal >29.9 [facility] Comment on above: Result Comment: Reference Range: Vitamin D status Range Deficiency <20 ng/mL Mild Deficiency 20-30 ng/mL Sufficiency 30-100 ng/mL Toxicity >100 ng/mL Performed By: #### R ENP ####[employer] [facility] [id number] [place] [address] lab Director: Emily George MD#### VD25, PTHNCA, URTPRT ####[facility] [place], [place] 4933708 lab Director: Placido Pierce MD XR ORTHO FOOT LEFTon [...] ThuMarch 04, 2023 4:22:25 PM EDT Normal [facility] Comment on above: Order Comment: Injur y/Trauma or Illness?:Illness/Other How long have you had these symptoms (acute/chronic)?:Chronic Reason for exam?:Left foot charcot History of cancer?:Unknown Surgeries, chemotherapy, or radiation?:Unknown Type of Exam?:Initial Additional signs and symptoms?:Left foot charcot BUN & Creatinineon 3 Creatinine [Mass/Vol] 1.08 mg/dL High 0.50 - 0.90 mg/dL [facility] GFR/1.73 sq M.predicted MDRD (S/P/Bld) [Vol rate/Area] - PINF [facility] [employer] Comment on above: These results are not [...] 21 mg/dL High 6 - 20 mg/dL [facility] CBC with Auto Differentialon 02-05-2023 Absolute Eos # 0.10 [place] [facility] Absolute Lymph # 1.70 [facility] SECO URS [facility] Absolute Sampson # 0.50 [facility] RS [facility] Basophils (Bld) [#/Vol] 0.00 10*3/uL [facility] Basophils/100 WBC (Bld) 1 % 0 - 2 % [facility] Differential Type YES [facility] Eosinophils/100 WBC (Bld) 1 % 0 - 5 % [facility] Hematocrit (Bld) [Volume fraction] 36.2 % 36 - 46 % [facility] Hemoglobin (Bld) [Mass/Vol] 12.2 g/dL 12.0 - 16.0 g/dL [facility] Interpretation and review of laboratory results Abnormal [facility] Lymphocytes/100 WBC (Bld) 23 % 15 - 40 % [facility] MCH (RBC) [Entitic mass] 28.7 pg 26 - 34 pg [facility] MCHC (RBC) [Mass/Vol] 33.7 g/dL 31 - 37 g/dL B [facility] MCV (RBC) [Entitic vol] 85.3 fL 80 - 100 fL [facility] Monocytes/100 WBC (Bld) 7 % 4 - 8 % [facility] Platelet distribution width (Bld) [Ratio] 18.1 % High 12.1 - 15.2 % [facility] Platelets (Bld) [#/Vol] 150 10*3/uL [facility] RBC (Bld) [#/Vol] 4.25 10*6/uL 4.0 - 5.2 m/uL [facility] Segmented neutrophils/100 WBC (Bld) 68 % 47 - 75 % [facility] Segs Absolute 5.30 [facility] WBC (Bld) [#/Vol] 7.6 10*3/uL [facility] Chlorideon 02-05-2023 Chloride [Moles/Vol] 99 mmol/L 98 - 10 7 mmol/L [facility] Glucose, Randomon 02-05-2023 Glucose [Mass/Vol] 107 mg/dL High 70 - 99 mg/dL [facility] No Panel Informationon 02-05 Interpretation and review of laboratory results Abnormal [facility] Potassiumon 02-05-2023 Potassium [Moles/Vol] 4.6 mmol/L 3.7 - 5.3 mmol/L [facility] Sodiumon 02-05-2023 Sodium [Moles/Vol] 134 mmol/L Low 135 - 144 mmol/L [facility] Wet Prep, Genitalon 02-06-20 Interpretation and review of laboratory results Abnormal [facility] Microorganism or agent identified Nom (Unsp spec) FEW WBC Abnormal [facility] Microorganism or agent identified Nom (Unsp spec) MODERATE EPITHELIAL CELLS Abnormal [facility] Microorganism or agent identified Nom (Unsp spec) MODERATE BACTERIA Abnormal [facility] Microorganism or agent identified Nom (Unsp spec) NO TRICHOMONAS SEEN [facility] Microorganism or agent identified Nom (Unsp spec) NO FUNGAL ELEMENTS SEEN [facility] Microorganism or agent identified Nom (Unsp spec) NO CLUECELL SEEN [facility] Specimen Description .VAGINA [facility] CT FOOT LT WO CONon 02-05-20 CT FOOT LT WO CON EXAMINATION: CT [...] by: EMILY ELY Date: 2023-02-04 20:14 Normal [facility] XR ANKLE LEFT 3+ VIEWS (ABDOULAYE GALVAN)on [...] dedicated foot radiographs. No ankle fracture identified. JUNIOR/elena Workstation ID: [id number] Dictated by: KITTY RODRIGUEZ on ThuJan 06, 2023 5:39:58 PM EDT Transcribed by: SHOBHA JEAN on ThuJan 06, 2023 6:06:04 PM EDT Finalized by: KITTY RODRIGUEZ on ThuJan 06, 2023 6:11:26 PM EDT Normal [facility] Comment on above: Order Comment: Injur y/Trauma or Illness?:Injury/Trauma How long have you had these symptoms (acute/chronic)?:Acute Reason for exam?:left lateral ankle pain History of cancer?: Surgeries, chemotherapy, or radiation?: Type of Exam?:Initial Mechanism of injury?:rolled ankle 4 days ago Radiology Outside Office Manager Psychology yon 08-21-2022 Radiology Outside Office Copy [id number]# 1.00CD:127 Normal [facility] MRI FOOT LEFT W WO CONTRASTo n 06-25-2022 Combined with the accompanying radiographs, 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 [facility] RIS CONSOLIDATED EXAM: MRI FOOT LEFT W [...] osteomyelitis. No nonenhancing abscess pockets are identified. [facility] Mike Montgomery M D - 06/25/2022 EXAM: [...] fragmentation of the navicular and cuneiform bones. [facility] [employer] Work Phone: Radiology Study observation (narrative) [employer] Phone: MRI FOOT LEFT W WO CONTRASTO rdered By: Mike Villavicencio on 06-25-2022 [employer] Phone: XR FOOT LEFT (2 VIEWS)on There is a linear metallic foreign body projecting between the second and third metatarsals. There is also a metallic foreign body within the lower leg. There is fragmentation of the navicular as well as of all 3 cuneiforms. The appearance is consistent with the patient's history of neuropathy. [facility] CONSOL[facility] EXAM: XR FOOT LEFT ( 2 VIEWS) HISTORY: M79.5. The patient is a 42-year-old female. Evaluate for foreign body. COMPARISON: None. [facility] Mike Villavicencio M D - 06/25/2022 [...] consistent with the patient's history of neuropathy. 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 Clinical follow up recommended. Subcentimeter highly suspicious nodule in the right thyroid lobe 7 mm in greatest dimension. This meets criteria for annual follow up for 5 years. It does not meet criteria for FNA. [facility] CONSOL[facility] EXAM: US HEAD NECK SOFT TISSUE [...] fat without shadowing, suggestive of a lipoma. [facility] R[facility] Micky Lauren Jr., MD - [...] It does not meet criteria for FNA. [employer] Phone: Radiology Study observation (narrative) [employer] Phone: HEAD NECK SOFT TISSUE THY ROIDOrdered By: Micky Lauren on 05-27-2022 [facility] [employer] Work Phone: Rejection Notificationon Reason see below [facility] Comment on above: Result Comment: Unab le to perform testing; no specimen received. To perform testing the specimen will need to be recollected. No spec Performed By: #### R EJEC #### [facility] [address] [facility] [address] Rejected Test CXURN Normal [facility] Comment on above: Performed By: #### R EJEC #### [facility] [address] [facility] [address] LDL Cholesterol, Directon Cholesterol in LDL [Mass/Vol] 84 mg/dL <100 [facility] CBC with Auto Differentialon 04-12-2022 Absolute Eos # 0.10 [place] [facility] Absolute Lymph # 1.40 [facility] Absolute Sampson # 0.30 [facility] Basophils (Bld) [#/Vol] 0.00 10*3/uL [facility] Basophils/100 WBC (Bld) 1 % 0 - 2 % [facility] Differential Type YES [facility] Eosinophils/100 WBC (Bld) 1 % 0 - 5 % [facility] Hematocrit (Bld) [Volume fraction] 35.7 % Low 36 - 46 % [facility] Hemoglobin (Bld) [Mass/Vol] 12.0 g/dL 12.0 - 16.0 g/dL [facility] Interpretation and review of laboratory results Abnormal [facility] Lymphocytes/100 WBC (Bld) 25 % 15 - 40 % [facility] MCH (RBC) [Entitic mass] 28.0 pg 26 - 34 pg [facility] MCHC (RBC) [Mass/Vol] 33.7 g/dL 31 - 37 g/dL B ON [facility] MCV (RBC) [Entitic vol] 83.3 fL 80 - 100 fL [facility] Monocytes/100 WBC (Bld) 5 % 4 - 8 % [facility] Platelet distribution width (Bld) [Ratio] 16.4 % High 12.1 - 15.2 % [facility] Platelets (Bld) [#/Vol] 168 10*3/uL [facility] RBC (Bld) [#/Vol] 4.29 10*6/uL 4.0 - 5.2 m/uL [facility] Segmented neutrophils/100 WBC (Bld) 68 % 47 - 75 % [facility] Segs Absolute 3.90 [facility] WBC (Bld) [#/Vol] 5.7 10*3/uL [facility] Comprehensive Metabolic Pane lyn 04-12-2022 Albumin [Mass/Vol] 4.2 g/dL 3.5 - 5.2 g/dL [facility] ALP (Bld) [Catalytic activity/Vol] 88 U/L 35 - 104 U/L [facility] ALT [Catalytic activity/Vol] 29 U/L 5 - 33 U/L [facility] Anion gap [Moles/Vol] 11 mmol/L 9 - 17 mmol/L [facility] AST [Catalytic activity/Vol] 27 U/L <32 [facility] Bilirubin [Mass/Vol] 0.65 mg/dL 0.30 - 1.20 mg/dL [facility] Calcium [Mass/Vol] 9.1 mg/dL 8.6 - 10. 4 mg/dL [facility] Chloride [Moles/Vol] 101 mmol/L 98 - 10 7 mmol/L [facility] CO2 [Moles/Vol] 28 mmol/L 20 - 31 mmol/L [facility] Creatinine [Mass/Vol] 1.04 mg/dL High 0.50 - 0.90 mg/dL [facility] Free PSA/Total PSA [Mass fraction] 6.8 g/dL 6.4 - 8.3 g/dL [facility] GFR >60 >60 mL/min [facility] GFR Non- 58 mL/min Low >60 [facility] GFR/1.73 sq M.predicted MDRD (S/P/Bld) [Vol rate/Area] [facility] Comment on above: Average GFR for 40-4 9 years old: 99 mL/min/1.73sq m Chronic Kidney Disease: <60 mL/min/1.73sq m Kidney failure: <15 mL/min/1.73sq m eGFR calculated using average adult body mass. Additional eGFR calculator available at: http://www.[employer]/multiple_crcl_2012.htm Glucose [Mass/Vol] 103 mg/dL High 70 - 99 mg/dL [facility] Interpretation and review of laboratory results Abnormal [facility] [employer] [facility] Potassium [Moles/Vol] 3.9 mmol/L 3.7 - 5.3 mmol/L [facility] [employer] [facility] Sodium [Moles/Vol] 140 mmol/L 135 - 144 mmol/L [facility] Close Urea nitrogen (BldV) [Mass/Vol] 13 mg/dL 6 - 20 mg/dL [facility] Close Urea nitrogen/Creatinine (Bld) [Mass ratio] 13 [facility] HIV Screenon 04-12-2022 HIV Ag/Ab Non-Reactive NONREACTIVE [facility] Comment on above: No laboratory eviden ce of HIV infection. If acute HIV infection is suspected, consider testing for HIV-1 RNA. [facility] Lipid Panelon 04-12-2022 Cholesterol [Mass/Vol] 184 mg/dL <200 [facility] Comment on above: Cholesterol Guidelines: <200 Desirable 200-240 Borderline >240 Undesirable Cholesterol in HDL [Mass/Vol] 30 mg/dL Low >40 [facility] Comment on above: HDL Guidelines: <40 Undesirable 40-59 Borderline >59 Desirable Cholesterol.total/Cho lesterol in HDL [Mass ratio] 6.1 {ratio} High <5 [facility] Interpretation and review of laboratory results Abnormal [facility] LDL Cholesterol 0 - 130 mg/dL [facility] Close Comment on above: Calculation not jacqueline d for Triglyceride value greater than 400 mg/dL. Direct LDL reflexed LDL Guidelines: <100 Desirable 100-129 Near to/above Desirable 130-159 Borderline >159 Undesirable Direct (measured) LDL and calculated LDL are not interchangeable tests. Triglyceride [Mass/Vol] 460 mg/dL High <150 [facility] Comment on above: Triglyceride Guidelines: <150 Desirable 150-199 Borderline 200-499 High >499 Very high Based on AHA Guidelines for fasting triglyceride, July 2012. [facility] No Panel Informationon 04-12 [facility] TSH with Reflexon 04-12-2022 TSH Qn 0.99 m[IU]/L [facility] XR pre/post mri xrayon 02-04 XR pre/post mri xray [facility] [place] [address] [place] [address] MRI Report Signed Patient: Celina Gaspar MR#: [id number] 90 : 1980 Acct:[id number] Age/Sex: 41 / F ADM Date: 02/04/22 Loc: [facility] Room: Type: [facility] Attending Dr: Tiffanie Casas MD Ordering Provider: Tiffanie Casas MD Date of Service: 02/04/22 MR/MR lumbar spine wo con: M54.16, M79.10, M79.609, R20.9 ([id number]) XR/XR pre/post mri xray: M54.16, M79.10, M79.609, [...] Nash Doyle M.D.02/04/2022 11:43 AM Dictation Location: [place] [address] Transcribed By: KERRIE 02/04/22 1143 Dictated By: Nash Doyle II, MD 02/04/22 1136 Signed By: 02/04/22 1143 [facility] Urinalysis with MicroscopicO rdered By: Lita Weeks on 08-01-2021 - [employer] Work Phone: Amorphous, UA NOT REPORTED None [employer] Work Phone: Bacteria, UA RARE Abnormal None [employer] Work Phone: Bilirubin Urine Negative NEGATIVE [employer] Work Phone: Casts UA NOT REPORTED /LPF [employer] Work Phone: Color, UA Yellow Yellow [employer] Work Phone: Crystals, UA NOT REPORTED None /HPF [employer] [facility] Work Phone: Epithelial Cells UA 2 TO 5 /HPF [employer] Work Phone: Glucose, Ur Negative NEGATIVE [employer] Work Phone: Interpretation and review of laboratory results Abnormal [facility] Work Phone: Ketones Ql (U) Negative NEGATIVE [facility] Work Phone: Leukocyte esterase Test strip Ql (U) Negative NEGATIVE [facility] Work Phone: Mucus, UA NOT REPORTED None [facility] Work Phone: Nitrite, Urine Negative NEGATIVE [facility] Work Phone: Other Observations UA NOT REPORTED NOT REQ. [facility] Phone: pH, UA 6.0 [facility] Work Phone: Protein, UA Negative NEGATIVE [facility] Work Phone: RBC, UA NOT REPORTED [facility] Work Phone: Renal Epithelial, UA NOT REPORTED 0 /HPF Me [facility] [employer] Work Phone: Specific [place], UA 1.020 [facility] Work Phone: Trichomonas, UA NOT REPORTED None [facility] Work Phone: Turbidity UA Clear Clear [facility] Work Phone: Urinalysis Comments [facility] Work Phone: Urine Hgb Negative NEGATIVE [facility] Phone: Urobilinogen, Urine Normal Normal [facility] Phone: WBC, UA NOT REPORTED 0 /HPF [facility] Work Phone: Yeast, UA NOT REPORTED None [facility] Work Phone: [facility] Work Phone: Urinalysis with MicroscopicO rdered By: Lita Weeks on 07-11-2021 - [employer]Event Work Phone: Amorphous, UA NOT REPORTED None [employer] [facility] Work Phone: Bacteria, UA 3+ Abnormal None [facility] Work Phone: Bilirubin Urine Negative NEGATIVE [facility] Work Phone: Casts UA NOT REPORTED /LPF [facility] [employer] Work Phone: Color, UA Yellow Yellow [facility] Work Phone: Crystals, UA NOT REPORTED None /HPF [facility] Work Phone: Epithelial Cells UA 2 TO 5 /HPF [facility] Work Phone: Glucose, Ur Negative NEGATIVE [facility] [employer] Work Phone: Interpretation and review of laboratory results Abnormal [facility] Work Phone: Ketones Ql (U) Negative NEGATIVE [facility] Work Phone: Leukocyte esterase Test strip Ql (U) 2+ Abnormal NEGATIVE [facility] [employer] Work Phone: Mucus, UA NOT REPORTED None [facility] [employer] Work Phone: Nitrite, Urine Positive Abnormal NEGATIVE [facility] Work Phone: Other Observations UA NOT REPORTED NOT REQ. M [facility] [employer] Work Phone: pH, UA 6.0 [facility] Work Phone: Protein, UA Negative NEGATIVE [facility] [employer] Work Phone: RBC, UA NOT REPORTED [facility] Work Phone: Renal Epithelial, UA NOT REPORTED 0 /HPF [facility] Work Phone: Specific [place], UA 1.025 [facility] [employer] Work Phone: Trichomonas, UA NOT REPORTED None [facility] Work Phone: Turbidity UA Hazy Abnormal Clear [facility] [employer] Work Phone: Urinalysis Comments [facility] [employer] Work Phone: Urine Hgb Negative NEGATIVE [facility] Work Phone: Urobilinogen, Urine Normal Normal [employer] Phone: WBC, UA 20 TO 50 0 /HPF [employer] Phone: Yeast, UA NOT REPORTED None [employer] Phone: [employer] Phone: AlbuminOrdered By: Gregory stevens on 05-20-2021 Albumin [Mass/Vol] 4.2 g/dL 3.5 - 5.2 g/dL [employer] Phone: BUN & CreatinineOrdered By: Gregory Forbes on 05-20-2021 Creatinine [Mass/Vol] 1.18 mg/dL High 0.50 - 0.90 mg/dL [employer] Phone: GFR >60 >60 mL/min [employer] Phone: GFR Non- 50 mL/min Low >60 [employer] Phone: GFR/1.73 sq M.predicted MDRD (S/P/Bld) [Vol rate/Area] [employer] Phone: Comment on above: Average GFR for 40-4 9 years old: 99 mL/min/1.73sq m Chronic Kidney Disease: <60 mL/min/1.73sq m Kidney failure: <15 mL/min/1.73sq m eGFR calculated using average adult body mass. Additional eGFR calculator available at: http://www.[employer]/multiple_crcl_2012.htm GFR/1.73 sq M.predicted MDRD (S/P/Bld) [Vol rate/Area] NOT REPORTED [employer] Phone: Interpretation and review of laboratory results Abnormal [employer] Phone: Urea nitrogen (BldV) [Mass/Vol] 19 mg/dL 6 - 20 mg/dL [employer] Phone: CalciumOrdered By: Gregory stevens on 05-20-2021 Calcium [Mass/Vol] 9.2 mg/dL 8.6 - 10. 4 mg/dL [employer] Phone: Electrolyte PanelOrdered By: Gregory Forbes on 05-20-2021 Anion gap [Moles/Vol] 10 mmol/L 9 - 17 mmol/L [employer] Phone: Chloride [Moles/Vol] 103 mmol/L 98 - 10 7 mmol/L [facility] Work Phone: CO2 [Moles/Vol] 25 mmol/L 20 - 31 mmol/L [facility] Phone: Potassium [Moles/Vol] 4.2 mmol/L 3.7 - 5.3 mmol/L [employer] Phone: Sodium [Moles/Vol] 138 mmol/L 135 - 144 mmol/L [employer] Phone: MagnesiumOrdered By: Gregory high on 05-20-2021 Magnesium [Mass/Vol] 2.2 mg/dL 1.6 - 2 .6 mg/dL [employer] Phone: No Panel InformationOrdered By: Gregory Forbes on 05-20-2021 [employer]Event Work Phone: PhosphorusOrdered By: Gregory Forbes on 05-20-2021 Phosphate [Mass/Vol] 3.7 mg/dL 2.6 - 4 .5 mg/dL [employer] Phone: UrinalysisOrdered By: Gregory Forbes on 05-20-2021 Bilirubin Urine Negative NEGATIVE [employer] [facility] Work Phone: Color, UA YELLOW YELLOW [facility] Work Phone: Glucose, Ur Negative NEGATIVE [employer] Work Phone: Interpretation and review of laboratory results Abnormal [employer] Work Phone: Ketones Ql (U) Negative NEGATIVE [employer] Work Phone: Leukocyte esterase Test strip Ql (U) Negative NEGATIVE [employer] Phone: Nitrite, Urine Negative NEGATIVE [employer] Work Phone: pH, UA 5.0 [employer] Phone: Protein, UA TRACE Abnormal NEGATIVE [employer] Phone: Specific [place], UA 1.020 [employer] Phone: Turbidity UA CLEAR CLEAR [employer] Work Phone: Urinalysis Comments [employer] Phone: Urine Hgb Negative NEGATIVE [employer] Phone: Urobilinogen, Urine Normal Normal [employer] Phone: [employer] Phone: COVID-19Ordered By: Pattie smith on 01-22-2021 SARS-CoV-2 (COVID-19) RNA SHARMIN+probe Ql (Unsp spec) [employer] Phone: SARS-CoV-2 (COVID-19) RNA SHARMIN+probe Ql (Unsp spec) Not detected Not Detected [employer] Phone: Comment on above: The specimen is NEGATIVE for SARS-CoV-2, the novel coronavirus associated with COVID-19. A negative result does not rule out COVID-19. Twin SARS-CoV-2 for use on the Twin [employer] is a real-time RT-PCR test intended [...] this assay. Fact sheet for Healthcare Providers: https://www.[facility].gov/media/088573/download Fact sheet for Patients: https://www.fda.gov/media/904782/download METHODOLOGY: RT-PCR Source .THROAT [facility] Phone: COVID-19, PCRon 11-15-2020 SARS-CoV-2, Rapid Not Detected Not Detected [facility] [employer] Phone: Comment on above: Rapid NAAT: The specimen is NEGATIVE for SARS-CoV-2, the novel coronavirus associated with COVID-19. The [employer] NOW COVID-19 assay is designed to detect [...] management decisions. Fact sheet for Healthcare Providers: https://www.[employer].gov/media/660864/download Fact sheet for Patients: https://www.fda.gov/media/517472/download Methodology: Isothermal Nucleic Acid Amplification Source .THROAT [facility] [employer] Phone: Otheron 11-15-2020 SARS-CoV-2 [facility] [employer] Phone: CBC Auto Differentialon - Basophils (Bld) [#/Vol] 0.10 10*3/uL [place] Basophils/100 WBC (Bld) 1 % 0 - 2 % [place] Differential Type YES [facility] [place] Eosinophils (Bld) [#/Vol] 0.10 10*3/uL [place] Eosinophils/100 WBC (Bld) 1 % 0 - 5 % [place] Erythrocyte distribution width (RBC) [Ratio] 16.3 % High 12.1 - 15.2 % [place] Hematocrit (Bld) [Volume fraction] 36.5 % 36 - 46 % [place] Hemoglobin (Bld) [Mass/Vol] 12.5 g/dL 12 - 16 g/dL [place] Interpretation and review of laboratory results Abnormal [place] Lymphocytes (Bld) [#/Vol] 1.90 10*3/uL [place] Lymphocytes/100 WBC (Bld) 25 % 15 - 40 % [place] MCH (RBC) [Entitic mass] 28.8 pg 26 - 34 pg [place] MCHC (RBC) [Mass/Vol] 34.3 g/dL 31 - 37 g/dL [place] MCV (RBC) [Entitic vol] 84.0 fL 80 - 100 fL [place] Monocytes (Bld) [#/Vol] 0.40 10*3/uL [place] Monocytes/100 WBC (Bld) 5 % 4 - 8 % [place] Platelet mean volume (Bld) [Entitic vol] NOT REPORTED 6 - 12 fL [place] Platelets (Bld) [#/Vol] 167 10*3/uL [place] Platelets (Bld) [#/Vol] NOT REPORTED [place] RBC (Bld) [#/Vol] 4.35 10*6/uL 4 - 5.2 m/uL [place] RBC morphology finding Nom (Bld) NOT REPORTED [place] Segmented neutrophils/100 WBC (Bld) 68 % 47 - 75 % [place] Segs Absolute 5.40 [place] WBC (Bld) [#/Vol] 7.8 10*3/uL [place] WBC (Bld) [#/Vol] NOT REPORTED per 100 WBC [place] WBC Morphology NOT REPORTED [place], [place] Comprehensive Metabolic Pane l w/ Reflex to MGon 12-13-2020 Albumin [Mass/Vol] 4.4 g/dL 3.5 - 5.2 g/dL [place] Albumin/Globulin [Mass ratio] NOT REPORTED [place] ALP [Catalytic activity/Vol] 117 U/L High 35 - 104 U/L [place] ALT [Catalytic activity/Vol] 41 U/L High 5 - 33 U/L [place] Anion gap [Moles/Vol] 10 mmol/L 9 - 17 mmol/L [place] AST [Catalytic activity/Vol] 39 U/L High <32 [place] Bilirubin Ql (U) 0.52 mg/dL 0.3 - 1.2 mg/dL [place] Bun/Cre Ratio 11 [place], [place] Calcium [Mass/Vol] 9.0 mg/dL 8.6 - 10. 4 mg/dL [place] Chloride [Moles/Vol] 101 mmol/L 98 - 10 7 mmol/L [place] CO2 [Moles/Vol] 26 mmol/L 20 - 31 mmol/L [place] Creatinine [Mass/Vol] 1.32 mg/dL High 0.5 - 0.9 mg/dL [place] GFR 54 mL/min Low >60 [place] GFR Non- 44 mL/min Low >60 [place] GFR/1.73 sq M predicted among non-blacks MDRD (S/P/Bld) [Vol rate/Area] [place] Comment on above: Average GFR for 40-4 9 years old: 99 mL/min/1.73sq m Chronic Kidney Disease: <60 mL/min/1.73sq m Kidney failure: <15 mL/min/1.73sq m eGFR calculated using average adult body mass. Additional eGFR calculator available at: http://www.[employer]/multiple_crcl_2012.htm GFR/1.73 sq M predicted among non-blacks MDRD (S/P/Bld) [Vol rate/Area] NOT REPORTED [place] Glucose [Mass/Vol] 173 mg/dL High 70 - 99 mg/dL [place] Interpretation and review of laboratory results Abnormal [place] Potassium [Moles/Vol] 3.9 mmol/L 3.7 - 5.3 mmol/L [place] Protein [Mass/Vol] 7.3 g/dL 6.4 - 8.3 g/dL [place] Sodium [Moles/Vol] 137 mmol/L 135 - 144 mmol/L [place] Urea nitrogen [Mass/Vol] 15 mg/dL 6 - 20 mg/dL [place] Otheron 09-16-2020 Immature granulocytes (Bld) [#/Vol] NOT REPORTED [place] Sedimentation Rateon 020 Sed Rate 15 mm 0 - 20 mm [place] Urinalysis, reflex to micros copicon 09-16-2020 Bilirubin Urine Negative NEGATIVE [place] Color, UA YELLOW YELLOW [place] Glucose, Ur Negative NEGATIVE [place] Interpretation and review of laboratory results Abnormal [place] Ketones Ql (U) Negative NEGATIVE [place] Leukocyte esterase Test strip Ql (U) Negative NEGATIVE [place] Nitrite, Urine Negative NEGATIVE [place] pH, UA 5.0 [place] Protein (U) [Mass/Vol] TRACE Abnormal NEGATIVE [place] Specific [place], UA 1.025 [place] Turbidity UA CLEAR CLEAR [place] Urinalysis Comments [place] Urine Hgb Negative NEGATIVE [place] Urobilinogen, Urine Normal Normal [place] C-Reactive Proteinon 020 CRP [Mass/Vol] 6 mg/L High 0 - 5 mg/L [place] Interpretation and review of laboratory results Abnormal [place], [place] CBC With Auto Differentialon 08-24-2020 Basophils (Bld) [#/Vol] 0.00 10*3/uL [place] Basophils/100 WBC (Bld) 1 % 0 - 2 % [place] Differential Type YES [place] Eosinophils (Bld) [#/Vol] 0.10 10*3/uL [place] Eosinophils/100 WBC (Bld) 1 % 0 - 5 % [place] Erythrocyte distribution width (RBC) [Ratio] 16.2 % High 12.1 - 15.2 % [place] Hematocrit (Bld) [Volume fraction] 35.4 % Low 36 - 46 % [place] Hemoglobin (Bld) [Mass/Vol] 12.2 g/dL 12 - 16 g/dL [place] Interpretation and review of laboratory results Abnormal [place] Lymphocytes (Bld) [#/Vol] 1.60 10*3/uL [place] Lymphocytes/100 WBC (Bld) 28 % 15 - 40 % [place] MCH (RBC) [Entitic mass] 29.1 pg 26 - 34 pg [place] MCHC (RBC) [Mass/Vol] 34.5 g/dL 31 - 37 g/dL [place] MCV (RBC) [Entitic vol] 84.2 fL 80 - 100 fL [place] Monocytes (Bld) [#/Vol] 0.40 10*3/uL [place] Monocytes/100 WBC (Bld) 6 % 4 - 8 % [place] Platelet mean volume (Bld) [Entitic vol] NOT REPORTED 6 - 12 fL [place] Platelets (Bld) [#/Vol] 160 10*3/uL [place] Platelets (Bld) [#/Vol] NOT REPORTED [place] RBC (Bld) [#/Vol] 4.20 10*6/uL 4 - 5.2 m/uL [place] RBC morphology finding Nom (Bld) NOT REPORTED [place] Segmented neutrophils/100 WBC (Bld) 64 % 47 - 75 % [place] Segs Absolute 3.80 [place] WBC (Bld) [#/Vol] 5.8 10*3/uL [place] WBC (Bld) [#/Vol] NOT REPORTED per 100 WBC [place] WBC Morphology NOT REPORTED [place] Otheron 08-24-2020 Immature granulocytes (Bld) [#/Vol] NOT REPORTED 0 % [place] Sedimentation Rateon 020 Sed Rate 10 mm 0 - 20 mm [place] C-Reactive Proteinon 020 CRP [Mass/Vol] 2 mg/L 0 - 5 mg/L [place] CBC With Auto Differentialon 07-24-2020 Basophils (Bld) [#/Vol] 0.10 10*3/uL [place] Basophils/100 WBC (Bld) 1 % 0 - 2 % [place] Differential Type YES [place] Eosinophils (Bld) [#/Vol] 0.10 10*3/uL [place] Eosinophils/100 WBC (Bld) 1 % 0 - 5 % [place] Erythrocyte distribution width (RBC) [Ratio] 16.8 % High 12.1 - 15.2 % [place] Hematocrit (Bld) [Volume fraction] 40.0 % 36 - 46 % [place] Hemoglobin (Bld) [Mass/Vol] 13.5 g/dL 12 - 16 g/dL [place] Interpretation and review of laboratory results Abnormal [place] Lymphocytes (Bld) [#/Vol] 1.70 10*3/uL [place] Lymphocytes/100 WBC (Bld) 17 % 15 - 40 % [place] MCH (RBC) [Entitic mass] 29.1 pg 26 - 34 pg [place] MCHC (RBC) [Mass/Vol] 33.8 g/dL 31 - 37 g/dL [place] MCV (RBC) [Entitic vol] 86.0 fL 80 - 100 fL [place], [place] Monocytes (Bld) [#/Vol] 0.50 10*3/uL [place] Monocytes/100 WBC (Bld) 5 % 4 - 8 % [place] Platelet mean volume (Bld) [Entitic vol] NOT REPORTED 6 - 12 fL [place] Platelets (Bld) [#/Vol] NOT REPORTED [place] Platelets (Bld) [#/Vol] 208 10*3/uL [place] RBC (Bld) [#/Vol] 4.65 10*6/uL 4 - 5.2 m/uL [place] RBC morphology finding Nom (Bld) NOT REPORTED [place] Segmented neutrophils/100 WBC (Bld) 76 % High 47 - 75 % [place] Segs Absolute 7.70 [place] WBC (Bld) [#/Vol] NOT REPORTED per 100 WBC [place] WBC (Bld) [#/Vol] 10.0 10*3/uL [place] WBC Morphology NOT REPORTED [place] Otheron 07-24-2020 Immature granulocytes (Bld) [#/Vol] NOT REPORTED 0 % [place] Sedimentation Rateon 020 Sed Rate 6 mm 0 - 20 mm [place] Protein / creatinine ratio, urineon 06-07-2020 Creatinine, Ur 101.2 mg/dL 28 - 217 mg/dL [place] Protein (U) [Mass/Vol] 8 mg/dL [place] Comment on above: No normal range esta blished. Urine Total Protein Creatinine Ratio 0.08 [place] Urinalysison 06-07-2020 Bilirubin Urine Negative NEGATIVE [place] Color, UA YELLOW YELLOW [place], [place] Glucose, Ur 100 mg/dL Abnormal NEGATIVE [place] Interpretation and review of laboratory results Abnormal [place] Ketones Ql (U) Negative NEGATIVE [place] Leukocyte esterase Test strip Ql (U) Negative NEGATIVE [place] Nitrite, Urine Negative NEGATIVE [place] pH, UA 6.0 [place] Protein (U) [Mass/Vol] Negative NEGATIVE [place] Specific [place], UA 1.020 [place] Turbidity UA CLEAR CLEAR [place] Urinalysis Comments [place] Urine Hgb Negative NEGATIVE [place] Urobilinogen, Urine Normal Normal [place] Comprehensive Metabolic Pane lyn 05-25-2020 Albumin [Mass/Vol] 4.4 g/dL 3.5 - 5.2 g/dL [place] Albumin/Globulin [Mass ratio] NOT REPORTED [place] ALP [Catalytic activity/Vol] 87 U/L 35 - 104 U/L [place] ALT [Catalytic activity/Vol] 21 U/L 5 - 33 U/L [place] Anion gap [Moles/Vol] 10 mmol/L 9 - 17 mmol/L [place] AST [Catalytic activity/Vol] 22 U/L <32 [place] Bilirubin Ql (U) 0.32 mg/dL 0.3 - 1.2 mg/dL [place] Bun/Cre Ratio 18 [place], [place] Calcium [Mass/Vol] 10.1 mg/dL 8.6 - 10. 4 mg/dL [place] Chloride [Moles/Vol] 104 mmol/L 98 - 10 7 mmol/L [place] CO2 [Moles/Vol] 26 mmol/L 20 - 31 mmol/L [place] Creatinine [Mass/Vol] 1.37 mg/dL High 0.5 - 0.9 mg/dL [place] GFR 52 mL/min Low >60 [place] GFR Non- 43 mL/min Low >60 [place] GFR/1.73 sq M predicted among non-blacks MDRD (S/P/Bld) [Vol rate/Area] NOT REPORTED [place] GFR/1.73 sq M predicted among non-blacks MDRD (S/P/Bld) [Vol rate/Area] [place] Comment on above: Average GFR for 40-4 9 years old: 99 mL/min/1.73sq m Chronic Kidney Disease: <60 mL/min/1.73sq m Kidney failure: <15 mL/min/1.73sq m eGFR calculated using average adult body mass. Additional eGFR calculator available at: http://www.[employer]Union/multiple_crcl_2012.htm Glucose [Mass/Vol] 160 mg/dL High 70 - 99 mg/dL [place] Interpretation and review of laboratory results Abnormal [place] Potassium [Moles/Vol] 4.6 mmol/L 3.7 - 5.3 mmol/L [place] Protein [Mass/Vol] 7.4 g/dL 6.4 - 8.3 g/dL [place] Sodium [Moles/Vol] 140 mmol/L 135 - 144 mmol/L [place] Urea nitrogen [Mass/Vol] 24 mg/dL High 6 - 20 mg/dL [place] Hemoglobin A1Con 05-25-2020 Glucose [Mass/Vol] 123 mg/dL [place] Comment on above: The ADA and AACC rec ommend providing the estimated average glucose result to permit better patient understanding of their HBA1c result. HbA1c (Bld) [Mass fraction] 5.9 % 4 - 6 % [place] LDL Cholesterol, Directon Cholesterol in LDL [Mass/Vol] 58 mg/dL <100 [place] Lipid Panelon 05-25-2020 Cholesterol [Mass/Vol] 194 mg/dL <200 [place], [place] Comment on above: Cholesterol Guidelines: <200 Desirable 200-240 Borderline >240 Undesirable Cholesterol in HDL [Mass/Vol] 27 mg/dL Low >40 [place] Comment on above: HDL Guidelines: <40 Undesirable 40-59 Borderline >59 Desirable Cholesterol in LDL [Mass/Vol] 0 - 130 mg/dL [place] Comment on above: Calculation not jacqueline d for Triglyceride value greater than 400 mg/dL. Direct LDL reflexed LDL Guidelines: <100 Desirable 100-129 Near to/above Desirable 130-159 Borderline >159 Undesirable Direct (measured) LDL and calculated LDL are not interchangeable tests. Cholesterol in VLDL [Mass/Vol] NOT REPORTED 1 - 30 mg/dL [place] Cholesterol.total/Cho lesterol in HDL [Mass ratio] 7.2 {ratio} High <5 [place] Interpretation and review of laboratory results Abnormal [place] Triglyceride [Mass/Vol] 1112 mg/dL High <150 [place], [place] Comment on above: Triglyceride Guidelines: <150 Desirable 150-199 Borderline 200-499 High >499 Very high Based on AHA Guidelines for fasting triglyceride, July 2012. Patient Fasting?on 0 Patient Fasting? YES [place] Vitamin D 25 Hydroxyon 05-25 Vit D, 25-Hydroxy 30.2 ng/mL 30 - 100 ng/mL [place] Comment on above: Reference Range: Vitamin D status Range Deficiency <20 ng/mL Mild Deficiency 20-30 ng/mL Sufficiency 30-100 ng/mL Toxicity >100 ng/mL C-Reactive Proteinon 020 CRP [Mass/Vol] 6.2 mg/L High 0 - 5 mg/L [place] Interpretation and review of laboratory results Abnormal [place] Hemoglobin [id number] By: Kevin Allen on 09-24-2019 Glucose [Mass/Vol] 108 mg/dL [facility] [employer] Phone: Comment on above: The ADA and AACC rec ommend providing the estimated average glucose result to permit better patient understanding of their HBA1c result. HbA1c (Bld) [Mass fraction] 5.4 % 4.8 - 5.9 % [facility] Phone: Homocysteine, SerumOrdered B y: Janel Allen on 09-24-2019 Homocysteine 9 umol/L <15.0 [employer] Phone: TSH without ReflexOrdered By : Janel Allen on 09-24-2019 TSH Qn 1.03 m[IU]/L [facility] Phone: Vitamin B12 & FolateOrdered By: Janel Allen on 09-24-2019 Cobalamin (Vitamin B12) [Mass/Vol] 292 pg/mL 232 - 1245 pg/mL [facility] Work Phone: Folate 13.8 ng/mL >4.8 [employer] Phone: XR CERVICAL SPINE (4-5 VIEWS )on 07-29-2019 Mild degenerative changes cervical spine not unusual for age. Refer to the [facility] Imaging services 02/03/2019 with some of the findings discussed above. [place] EXAM: XR CERVICAL SPINE (4-5 VIEWS) HISTORY: Reason for exam:->history MRSA discitis of thoracic region. New tingling and numbness of fingers COMPARISON: MRI cervical spine [facility] 02/03/2019, cervical spine series 04/03/2010. The [...] Swimmer's lateral view shows no additional abnormality. 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 New tingling and numbness of fingers COMPARISON: MRI cervical spine [facility] 02/03/2019, cervical spine series 04/03/2010. The [...] not unusual for age. Refer to the [facility] Imaging services 02/03/2019 with some of the findings discussed above. [place] C-Reactive ProteinOrdered By : Azalea Knight on 07-28-2019 CRP [Mass/Vol] 6.4 mg/L High 0 - 5 mg/L [place] Interpretation and review of laboratory results Abnormal [place] CBC With Auto DifferentialOr dered By: Azalea Knight on 07-28-2019 Absolute Eos # 0.10 [place] Absolute Immature Granulocyte NOT REPORTED [place] Absolute Lymph # 2.10 [place], [place] Absolute Sampson # 0.50 [place] Basophils (Bld) [#/Vol] 0.00 10*3/uL [place] Basophils/100 WBC (Bld) 1 % 0 - 2 % [place] [place] Differential Type YES [place], [place] Eosinophils/100 WBC (Bld) 1 % 0 - 5 % [place] Erythrocyte distribution width (RBC) [Ratio] 14.5 % 12.1 - 15.2 % [place] Hematocrit (Bld) [Volume fraction] 38.1 % 36 - 46 % [place] Hemoglobin (Bld) [Mass/Vol] 12.9 g/dL 12 - 16 g/dL [place] Immature Granulocytes NOT REPORTED 0 % [place] Lymphocytes/100 WBC (Bld) 34 % 15 - 40 % [place] MCH (RBC) [Entitic mass] 29.5 pg 26 - 34 pg [place] MCHC (RBC) [Mass/Vol] 33.9 g/dL 31 - 37 g/dL [place] MCV (RBC) [Entitic vol] 87.1 fL 80 - 100 fL [place] Monocytes/100 WBC (Bld) 8 % 4 - 8 % [place] MPV NOT REPORTED 6 - 12 fL [place] NRBC Automated NOT REPORTED per 100 WBC [place] Platelet Estimate NOT REPORTED [place] Platelets (Bld) [#/Vol] 222 10*3/uL [place] RBC (Bld) [#/Vol] 4.38 10*6/uL 4 - 5.2 m/uL [place] RBC morphology finding Nom (Bld) NOT REPORTED [place] Segmented neutrophils/100 WBC (Bld) 56 % 47 - 75 % [place] Segs Absolute 3.50 [place], [place] WBC (Bld) [#/Vol] 6.2 10*3/uL [place] WBC Morphology NOT REPORTED [place], [place] Sedimentation RateOrdered By : Azalea Knight on 07-28-2019 Sed Rate 19 mm 0 - 30 mm [place] C-Reactive Proteinon 019 CRP [Mass/Vol] 7.3 mg/L High 0 - 5 mg/L [place] Interpretation and review of laboratory results Abnormal [place] Albuminon 06-17-2019 Albumin [Mass/Vol] 4.3 g/dL 3.5 - 5.2 g/dL [place] BUN & Creatinineon 9 Creatinine [Mass/Vol] 1.27 mg/dL High 0.5 - 0.9 mg/dL [place] GFR 56 mL/min Low >60 [place] GFR Non- 47 mL/min Low >60 [place] GFR/1.73 sq M predicted among non-blacks MDRD (S/P/Bld) [Vol rate/Area] NOT REPORTED [place] GFR/1.73 sq M predicted among non-blacks MDRD (S/P/Bld) [Vol rate/Area] [place] Comment on above: Average GFR for 40-4 9 years old: 99 mL/min/1.73sq m Chronic Kidney Disease: <60 mL/min/1.73sq m Kidney failure: <15 mL/min/1.73sq m eGFR calculated using average adult body mass. Additional eGFR calculator available at: http://www.[employer].Auto Secure/multiple_crcl_2011.htm Interpretation and review of laboratory results Abnormal [place] Urea nitrogen [Mass/Vol] 18 mg/dL 6 - 20 mg/dL [place] Calciumon 06-17-2019 Calcium [Mass/Vol] 10.4 mg/dL 8.6 - 10. 4 mg/dL [place] Electrolyte Panelon 06-17-20 19 Anion gap [Moles/Vol] 13 mmol/L 9 - 17 mmol/L [place] Chloride [Moles/Vol] 103 mmol/L 98 - 10 7 mmol/L [place] CO2 [Moles/Vol] 24 mmol/L 20 - 31 mmol/L [place] Potassium [Moles/Vol] 3.8 mmol/L 3.7 - 5.3 mmol/L [place] Sodium [Moles/Vol] 140 mmol/L 135 - 144 mmol/L [place] Hemoglobin and Hematocrit, B loodon 06-17-2019 Hematocrit (Bld) [Volume fraction] 35.4 % Low 36 - 46 % [place] Hemoglobin (Bld) [Mass/Vol] 12.1 g/dL 12 - 16 g/dL [place] Interpretation and review of laboratory results Abnormal [place] Magnesiumon 06-17-2019 Magnesium [Mass/Vol] 2.3 mg/dL 1.6 - 2 .6 mg/dL [place] Microscopic Urinalysison Amorphous, UA NOT REPORTED None [place], [place] Bacteria, UA 1+ Abnormal None [place] Casts UA NOT REPORTED /LPF [place] Crystals UA NOT REPORTED None /HPF [place] Epithelial Cells UA 2 TO 5 /HPF [place] Interpretation and review of laboratory results Abnormal [place] Mucus, UA NOT REPORTED None [place] Other Observations UA NOT REPORTED NOT REQ. [place] RBC (U) [#/Vol] NOT REPORTED [place], [place] Renal Epithelial, Urine NOT REPORTED 0 /HPF [place] Trichomonas, UA NOT REPORTED None [place], [place] WBC, UA 0 TO 2 0 /HPF [place] Yeast, UA NOT REPORTED None [place] - [place] Phosphoruson 06-17-2019 Phosphate [Mass/Vol] 3.0 mg/dL 2.6 - 4 .5 mg/dL [place] Protein / creatinine ratio, urineon 06-17-2019 Creatinine, Ur 228.2 mg/dL High 28 - 217 mg/dL [place] Interpretation and review of laboratory results Abnormal [place] Protein (U) [Mass/Vol] 18 mg/dL [place], [place] Comment on above: No normal range esta blished. Urine Total Protein Creatinine Ratio 0.08 [place] Sedimentation Rateon 019 Sed Rate 24 mm 0 - 30 mm [place] Urinalysison 06-17-2019 Bilirubin Urine Negative NEGATIVE [place], [place] Color, UA YELLOW YELLOW [place], [place] Glucose, Ur Negative NEGATIVE [place] Interpretation and review of laboratory results Abnormal [place] Ketones Ql (U) Negative NEGATIVE [place] Leukocyte esterase Test strip Ql (U) Negative NEGATIVE [place] Nitrite, Urine Negative NEGATIVE [place] pH, UA 6.0 [place] Protein (U) [Mass/Vol] TRACE Abnormal NEGATIVE [place] Specific [place], UA 1.025 [place], [place] Turbidity UA HAZY Abnormal CLEAR [place] Urinalysis Comments [place] Urine Hgb Negative NEGATIVE [place] Urobilinogen, Urine Normal Normal [place] MR CERVICAL SPINE WITHOUT CO NTRASTon [...] be due to myelomalacia or cord edema. /[facility] Workstation ID: [id number] [facility] EXAMINATION: MR CERVICAL SPINE WITHOUT CONTRAST HISTORY: [...] creating probable mild left-sided neural foraminal stenosis. [facility], Rad In Aric Mohanq - 02/03/2019 11:02 AM [...] be due to myelomalacia or cord edema. /[employer] Workstation ID: [id number] [facility] MR CERVICAL SPINE WITHOUT CONTRAST EXAMINATION: MR [...] be due to myelomalacia or cord edema. /cdr Workstation ID: [id number] Dictated by: RONALD MCCRAY on ThuFebruary 03, 2019 10:34:16 AM EDT Transcribed by: FELICITY DE JESUS on ThuFebruary 03, 2019 10:58:51 AM EDT Finalized by: RONALD MCCRAY on ThuFebruary 03, 2019 10:59:35 AM EDT [facility] Comment on above: Order Comment: Reaso [...] GROWTH 48 DAYS Report Status FINAL 10/11/2018 Normal [facility] Comment on above: Performed By: #### T ROPI #### videoNEXT [address] [place] [address] Cult,Mycobacteria Specimen Description .SPINE .TISSUE T4 LAMINA Special Requests NOT REPORTED Direct Exam NO ACID FAST BACILLI SEEN (DIRECT SMEAR) Culture NO GROWTH 48 DAYS Report Status FINAL 10/11/2018 [facility] Comment on above: Performed By: #### L ACWB #### [address] [address] Cult,Funguson 09-27-2018 Cult,Fungus Specimen Description .TISSUE EPIDURAL TISSUE Special Requests NOT REPORTED Culture NO GROWTH 34 DAYS Report Status FINAL 09/27/2018 [facility] Comment on above: Performed By: #### L ACWB #### [address] [address] Cult,Fungus Specimen Description .SPINE .TISSUE T4 LAMINA Special Requests NOT REPORTED Culture NO GROWTH 34 DAYS Report Status FINAL 09/27/2018 [facility] Comment on above: Performed By: #### L ACWB #### [address] [address] BUNon 09-23-2018 Urea nitrogen mass conc 20 mg/dL Normal - [facility] Comment on above: Performed By: #### 2 [id number] ####OVIDIO ExpYhpx5307 [place] [address] Creatinineon 09-23-2018 Creatinine mass conc 1.3 mg/dL High 0.5-1.1 [facility] Comment on above: Performed By: #### 2 [id number] ####OVIDIO Vmfsdwrt5660 [place] [address] eGFRon 09-23-2018 eGFR AA 54 mL/min/1.73 m2 [facility] Comment on above: Order Comment: Order added by Discern Expert. Performed By: #### 2 [id number] ####OVIDIO Sykuzwyz2816 [place] [address] GFR/1.73 sq M predicted among non-blacks MDRD vol rate/area (S/P/Bld) 45 mL/min/1.73 m2 Normal [facility] Comment on above: Order Comment: Order added by Discern Expert. Performed By: #### 2 [id number] ####OVIDIO Jlyiygre2905 [place] [address] Auto Diffon 09-20-2018 Basophils Auto #/vol (Bld) 0.0 E3/mcL Normal 0.0-0.2 [facility] Comment on above: Order Comment: Order Added by Discern Expert. Performed By: #### 2 [id number] ####OVIDIO HtuVapl3624 [place] [address] Basophils/100 WBC Auto (Bld) 1.1 % Normal 0.0-2.0 [facility] Comment on above: Order Comment: Order Added by Nicole Expert. Performed By: #### 2 [id number] ####OVIDIO ZpuIewe7951 [place] [address] Eos Absolute 0.0 E3/mcL Normal 0.0-0.7 [facility] Comment on above: Order Comment: Order Added by Discern Expert. Performed By: #### 2 [id number] ####OVIDIO JksCjxu6716 [place] [address] Eosinophils/100 WBC Auto (Bld) 0.3 % Normal 0.0-11.0 [facility] Comment on above: Order Comment: Order Added by Nicole Expert. Performed By: #### 2 [id number] ####OVIDIO IxlUzoc6090 [place] [address] Lymphocytes Auto #/vol (Bld) 1.2 E3/mcL Normal 1.2-3.4 [facility] Comment on above: Order Comment: Order Added by Nicole Expert. Performed By: #### 2 [id number] ####OVIDIO ZdoHdjb3361 [place] [address] Lymphocytes/100 WBC Auto (Bld) 30.6 % Normal 20.0-55.0 [facility] Comment on above: Order Comment: Order Added by Nicole Expert. Performed By: #### 2 [id number] ####OVIDIO NggSdhj2673 [place] [address] Sampson Absolute 0.4 E3/mcL Normal 0.0-0.7 [facility] Comment on above: Order Comment: Order Added by Discern Expert. Performed By: #### 2 [id number] ####OVIDIO [address] [place] [address] Monocytes/100 WBC Auto (Bld) 10.2 % High 0.0-10.0 [facility] Comment on above: Order Comment: Order Added by Discern Expert. Performed By: #### 2 [id number] ####OVIDIO [address] [place] [id number] Neutro Absolute 2.3 E3/mcL Normal 1.4-6.5 [facility] Comment on above: Order Comment: Order Added by Discern Expert. Performed By: #### 2 [id number] ####OVIDIO [address] [place] [address] Neutro Auto 57.8 % Normal 37.0-75.0 [facility] Comment on above: Order Comment: Order Added by Discern Expert. Performed By: #### 2 [id number] ####OVIDIO [address] [place] 7125[address] CBC w/ Auto Diffon 8 Erythrocyte distribution width Auto Ratio (RBC) 19.9 % High 11.5-14.5 [facility] Comment on above: Performed By: #### 2 [id number] ####OVIDIO [address] [place] [address]125[address] Hematocrit Auto Volume Fraction (Bld) 26.5 % Low 36.0-48.0 [facility] Comment on above: Performed By: #### 2 [id number] ####OVIDIO [address] [place] [address]125[address] Hemoglobin mass conc (Bld) 8.7 g/dL Low 12.0-16.0 [facility] Comment on above: Performed By: #### 2 [id number] ####OVIDIO [address] [place] [address]125[address] MCH Auto Entitic mass (RBC) 29.6 pg Normal 27.0-31.0 [facility] Comment on above: Performed By: #### 2 [id number] ####OVIDIO [address] [place] [address] MCHC Auto mass conc (RBC) 32.9 g/dL Low 33.0-37.0 [facility] Comment on above: Performed By: #### 2 956805 ####OVIDIO [address]os[address]eiGixu1575 [place] [address] MCV Auto Entitic volume (RBC) 89.8 fL Normal 78.0-100.0 [facility] Comment on above: Performed By: #### 2 [id number] ####OVIDIO [address]os[address]bzXjcf7390 [place] [address] Platelet mean volume Auto Entitic volume (Bld) 10.5 fL Normal 7.4-11.0 [facility] Comment on above: Performed By: #### 2 [id number] ####OVIDIO [address]os[address]fjDgnj3888 [place] [address] Platelets Auto #/vol (Bld) 117 E3/mcL Low 130-400 [facility] Comment on above: Performed By: #### 2 [id number] ####OVIDIO [address]FoaLuef[address]754 [place] [address]125[address] RBC Auto #/vol (Bld) 2.95 E6/mcL Low 3.90-5.40 [facility] Comment on above: Performed By: #### 2 [id number] ####OVIDIO [address]lr[address] [place] [address]125[address] WBC Auto #/vol (Bld) 4.0 E3/mcL Normal 3.6-11.0 [facility] Comment on above: Performed By: #### 2 [id number] ####OVIDIO [address]osRskVwsg6531 [place] [address] CRPon 09-20-2018 CRP mass conc 0.83 mg/dL Normal 0.00-1.00 [facility] Comment on above: Performed By: #### 2 [id number] ####OVIDIO [address]SnnMdkc[address]240 [place] [id number] Morphon 09-20-2018 Anisocytosis Auto Ql (Bld) 1+ Normal [facility] Comment on above: Order Comment: Order Added by Discern Expert. Performed By: #### 1 [id number] ####OVIDIO [address]CodFfxh[address] [place] [address] Hypochromasia 1+ Normal [facility] Comment on above: Order Comment: Order Added by Discern Expert. Performed By: #### 1 [id number] ####OVIDIO ElvYqvz4097 [place] [address] RBC morphology finding Nom (Bld) SEE MORPHOLOGY Normal [facility] Comment on above: Order Comment: Order Added by Discern Expert. Performed By: #### 1 [id number] ####OVIDIO EcgRnky3551 [place] [address] Sed Rate Automatedon 018 Sed Rate Automated 15 mm/hr Normal [facility] Comment on above: Result Comment: AGE- SPECIFIC REFERENCE RANGES FOR SEDIMENTATION RATE AUTOMATED REFERENCE RANGE - MM/HR AGE MEN WOMEN 0-2 0-2 - PUBERTY 3-13 3-13 PUBERTY - 50 YRS 0-15 0-20 > 50 YRS 0-20 0-30 Performed By: #### 1 [id number] ####OVIDIO Hematology Manual Jch[address]eacd4523 [place] [address] zzplt morphon 09-20-2018 Platelet morphology finding Nom (Bld) NORMAL Normal [facility] Comment on above: Performed By: #### 9 [id number] ####OVIDIO QrcNjun6691 [place] [address] Platelets Auto #/vol (Bld) NORMAL Normal [facility] Comment on above: Performed By: #### 9 [id number] ####OVIDIO HtaCdjr0788 [place] [address] BLOOD UREA NITROGENon 2017 Urea nitrogen mass conc (Bld) 19 mg/dL Normal 7-20 [facility] Comment on above: Performed By: #### A CBC, ESR, BUN, CREAT, CREACT, FX ####Testing performed at [address] [address] C REACTIVE PROTEINon 018 CRP mass conc 18.5 mg/L High 0-10.0 [facility] Comment on above: Performed By: #### A CBC, ESR, BUN, CREAT, CREACT, FX ####Testing performed at [address] [address] CBCon 09-13-2018 ABSOLUTE BAS 0.1 X10 Normal [facility] Comment on above: Performed By: #### A CBC, ESR, BUN, CREAT, CREACT, FX ####Testing performed at [address] [address] ABSOLUTE EOS 0.20 X10 Normal [facility] Comment on above: Performed By: #### A CBC, ESR, BUN, CREAT, CREACT, FX ####Testing performed at [address] [address] ABSOLUTE NEUTROPHIL COUNT 2.5 x10 Normal 1.0-7.0 [facility] Comment on above: Performed By: #### A CBC, ESR, BUN, CREAT, CREACT, FX ####Testing performed at [address] [address] Basophils/100 WBC Auto (Bld) 1.4 % Normal 0.0-2.0 [facility] Comment on above: Performed By: #### A CBC, ESR, BUN, CREAT, CREACT, FX ####Testing performed at [address] [place] [address] DTYPE AUTO DIFF Normal [facility] Comment on above: Performed By: #### A CBC, ESR, BUN, CREAT, CREACT, FX ####Testing performed at [address] [address] Eosinophils/100 WBC Auto (Bld) 3.5 % Normal 0.0-11.0 [facility] Comment on above: Performed By: #### A CBC, ESR, BUN, CREAT, CREACT, FX ####Testing performed at [address] [address] Lymphocytes Auto #/vol (Bld) 1.10 X10 Normal [facility] Comment on above: Performed By: #### A CBC, ESR, BUN, CREAT, CREACT, FX ####Testing performed at [address] [address] Lymphocytes/100 WBC Auto (Bld) 27.0 % Normal 20.0-55.0 [facility] Comment on above: Performed By: #### A CBC, ESR, BUN, CREAT, CREACT, FX ####[place] [address] Monocytes Auto #/vol (Bld) 0.4 X10 Normal [facility] Comment on above: Performed By: #### A CBC, ESR, BUN, CREAT, CREACT, FX ####[place] [address] Monocytes/100 WBC Auto (Bld) 9.4 % Normal 0.0-10.0 [facility] Comment on above: Performed By: #### A CBC, ESR, BUN, CREAT, CREACT, FX ####[place] [address] Neutrophils/100 WBC Auto (Bld) 58.7 % Normal 37.0-75.0 [facility] Comment on above: Performed By: #### A CBC, ESR, BUN, CREAT, CREACT, FX ####[place] [address] Erythrocyte distribution width Auto Ratio (RBC) 17.6 % High 11.5-14.5 [facility] Comment on above: Performed By: #### A CBC, ESR, BUN, CREAT, CREACT, FX ####[place] [address] Hematocrit Auto Volume Fraction (Bld) 26.2 % Low 36.0-48.0 [facility] Comment on above: Performed By: #### A CBC, ESR, BUN, CREAT, CREACT, FX ####[place] [address] Hemoglobin mass conc (Bld) 8.8 g/dL Low 12.0-16.0 [facility] Comment on above: Performed By: #### A CBC, ESR, BUN, CREAT, CREACT, FX ####[place] [address] MCH Auto Entitic mass (RBC) 29.3 pg Normal 26.0-35.0 [facility] Comment on above: Performed By: #### A CBC, ESR, BUN, CREAT, CREACT, FX ####[place] [address] MCHC Auto mass conc (RBC) 33.7 g/dL Normal 27.0-37.0 [facility] Comment on above: Performed By: #### A CBC, ESR, BUN, CREAT, CREACT, FX ####[place] [address] MCV Auto Entitic volume (RBC) 86.9 fL Normal 80.0-100.0 [facility] Comment on above: Performed By: #### A CBC, ESR, BUN, CREAT, CREACT, FX ####[place] [address] Platelet mean volume Auto Entitic volume (Bld) 10.1 fL Normal 7.4-11.0 [facility] Comment on above: Performed By: #### A CBC, ESR, BUN, CREAT, CREACT, FX ####[place] [address] Platelets Auto #/vol (Bld) 130 /cmm Normal 130.0-400.0 [facility] Comment on above: Performed By: #### A CBC, ESR, BUN, CREAT, CREACT, FX ####[place] [address] RBC Auto #/vol (Bld) 3.01 /cmm Low 4.0-5.4 [facility] Comment on above: Performed By: #### A CBC, ESR, BUN, CREAT, CREACT, FX ####Testing performed at [place] [id number] WBC Auto #/vol (Bld) 4.2 /cmm Normal 3.6-11.0 [facility] Comment on above: Performed By: #### A CBC, ESR, BUN, CREAT, CREACT, FX ####[place] [address] CREATININE,SERUMon 8 Creatinine mass conc 1.5 mg/dL High 0.52-1.04 [facility] Comment on above: Performed By: #### A CBC, ESR, BUN, CREAT, CREACT, FX ####[place] [address] EST. GFR, 50 ml/min/1.73sq.m [facility] Comment on above: Performed By: #### A CBC, ESR, BUN, CREAT, CREACT, FX ####Testing performed at [place] [id number] EST. GFR,Non 41 ml/min/1.73sq.m [facility] Comment on above: Performed By: #### A CBC, ESR, BUN, CREAT, CREACT, FX ####[place] [address] GFR/1.73 sq M predicted among non-blacks MDRD vol rate/area (S/P/Bld) Average GFR for 30-39 years old = 109. [facility] Comment on above: Result Comment: Unindentured Apprentice vasu Kidney disease, GFR = <60.Kidney failure, GFR = <15.The GFR estimate is not adjusted for extreme body surface area or acute process, nor has it been validated for women or ethnic groups other than and . Performed By: #### A CBC, ESR, BUN, CREAT, CREACT, FX ####[place] [address] ESRon 09-13-2018 ESR Velocity (Bld) 49 mm/h High 0-15 [facility] Comment on above: Performed By: #### A CBC, ESR, BUN, CREAT, CREACT, FX ####Testing performed at [place] [id number] FAX REQUESTon 09-13-2018 FAX TO FAX TO DR DEVAN Perez [phone] AND TO [facility] AT [phone] [facility] Comment on above: Performed By: #### P HY, BUN, CREAT, FX ####Testing performed at [place] [id number] FAX REQUESTon 09-06-[phone] [facility] Comment on above: Performed By: #### F X ####[place] [address] BLOOD UREA NITROGENon 2017 Urea nitrogen mass conc (Bld) 21 mg/dL High 7-20 [facility] Comment on above: Performed By: #### P HY, BUN, CREAT, FX ####[place] [address] CREATININE,SERUMon 8 Creatinine mass conc 1.4 mg/dL High 0.52-1.04 [facility] Comment on above: Performed By: #### P HY, BUN, CREAT, FX ####Testing performed at [place] [id number] EST. GFR, 54 ml/min/1.73sq.m [facility] Comment on above: Performed By: #### P HY, BUN, CREAT, FX ####[place] [address] EST. GFR,Non 44 ml/min/1.73sq.m [facility] Comment on above: Performed By: #### P HY, BUN, CREAT, FX ####[place] [address] GFR/1.73 sq M predicted among non-blacks MDRD vol rate/area (S/P/Bld) Average GFR for 30-39 years old = 109. [facility] Comment on above: Result Comment: Unindentured Apprentice vasu Kidney disease, GFR = <60.Kidney failure, GFR = <15.The GFR estimate is not adjusted for extreme body surface area or acute process, nor has it been validated for women or ethnic groups other than and . Performed By: #### P HY, BUN, CREAT, FX ####[place] [address] FAX REQUESTon 08-31-2018 FAX TO [phone] [facility] Comment on above: Performed By: #### P HY, BUN, CREAT, FX ####Testing performed at [address] [address] GAL NEW PHYSICIANon 08-31-[address] [facility] Comment on above: Performed By: #### P HY, BUN, CREAT, FX ####Testing performed at [address] [address] BUNon 08-27-2018 Urea nitrogen mass conc 24 mg/dL High 03-27 [facility] Comment on above: Performed By: #### 2 [id number] ####OVIDIO [address]xj[address] [place] [address] Creatinineon 08-27-2018 Creatinine mass conc 1.6 mg/dL High 0.5-1.1 [facility] Comment on above: Performed By: #### 2 [id number] ####OVIDIO [address]ccd0[address] [place] [address] eGFRon 08-27-2018 eGFR AA 43 mL/min/1.73 m2 [facility] Comment on above: Order Comment: Order added by Discern Expert. Performed By: #### 1 [id number] ####OVIDIO EnzNlmc[address] [place] [id number] GFR/1.73 sq M predicted among non-blacks MDRD vol rate/area (S/P/Bld) 36 mL/min/1.73 m2 [facility] Comment on above: Order Comment: Order added by Discern Expert. Performed By: #### 1 [id number] ####OVIDIO UyaNcpe[address] [place] [address] Cult,Tissueon 08-26-2018 Cult,Tissue Specimen Description .TISSUE EPIDURAL [...] Trimethoprim/Sulfa <=10 SUSCEPTIBLE Vancomycin <=0.5 SUSCEPTIBLE Normal [facility] Comment on above: Performed By: #### L ACWB #### [address] [id number] Cult,Tissue Specimen Description .SPINE .TISSUE T4 LAMINA [...] Trimethoprim/Sulfa <=10 SUSCEPTIBLE Vancomycin <=0.5 SUSCEPTIBLE Normal [facility] Comment on above: Performed By: #### L ACWB #### [address] [id number] Basic Metabolic Profon 08-25 (cont.) Normal [facility] Comment on above: Result Comment: Aver age GFR for 30-39 years old: 107 mL/min/1.73sq m Chronic Kidney Disease: <60 mL/min/1.73sq m Kidney failure: <15 mL/min/1.73sq m eGFR calculated using average adult body mass. Additional eGFR calculator available at: http://www.[employer].com/multiple_crcl_2012.htm Performed By: #### L ACWB #### [address] [id number] Anion gap molar conc 14 mmol/L Normal 9-17 [facility] Comment on above: Performed By: #### L ACWB #### [facility] [employer] [address] [place] [address] Calcium mass conc 9.1 mg/dL Normal 8.6-10.4 [facility] Comment on above: Performed By: #### L ACWB #### [facility] [address] [place] [address] Chloride molar conc 96 mmol/L Low 98-107 [facility] Comment on above: Performed By: #### L ACWB #### [facility] [address] [place] [address] CO2 molar conc 23 mmol/L Normal 20-31 [facility] Comment on above: Performed By: #### L ACWB #### [facility] [address] [place] [address] Creatinine mass conc 1.52 mg/dL High 0.50-0.90 [facility] Comment on above: Performed By: #### L ACWB #### [facility] [address] [place] [address] GFR, Amer 46 mL/min Low >60 [facility] Comment on above: Performed By: #### L ACWB #### [facility] [place] [address] GFR,non Amer 38 mL/min Low >60 [facility] Comment on above: Performed By: #### L ACWB #### [facility] [address] [place] [address] Glucose mass conc 95 mg/dL Normal 70-99 [facility] Comment on above: Performed By: #### L ACWB #### [facility] [address] [place] [address] Potassium molar conc 4.5 mmol/L Normal 3.7-5.3 [facility] Comment on above: Performed By: #### L ACWB #### [facility] [address] [place] [address] Sodium molar conc 133 mmol/L Low 135-144 [facility] Comment on above: Performed By: #### L ACWB #### [facility] [employer] [address] [place] [address]21 Urea nitrogen mass conc 43 mg/dL High 6-20 [facility] Comment on above: Performed By: #### L ACWB #### [facility] [employer] [address] [place] [address]017 BUN/CRE Ratio NOT REPORTED Normal -20 [facility] Comment on above: Performed By: #### L ACWB #### [facility] [employer] [address] [place] [address]22 Staging: NOT REPORTED Normal [facility] Comment on above: Performed By: #### L ACWB #### [facility] [employer] [address] [place] [address] 42575 CBC with Diffon 08-25-2018 Abs. Basophil 0.07 k/uL Normal 0.00-0.20 [facility] Comment on above: Performed By: #### L ACWB #### [facility] [employer] [address] [place] [address] 80659 Abs.Imm.Granulocyte 0.08 k/uL Normal 0.00-0.30 [facility] Comment on above: Performed By: #### L ACWB #### [facility] [employer] [address] [place] [address] 88388 Abs.Neutrophil (Seg) 5.77 k/uL Normal 1.50-8.10 [facility] Comment on above: Performed By: #### L ACWB #### [facility] [employer] [address] [place] [address] 60678 Basophils/100 WBC (Bld) 1 % Normal 0-2 [facility] Comment on above: Performed By: #### L ACWB #### [address] [address] Eosinophils #/vol (Bld) 0.12 10*3/uL Normal 0.00-0.44 [facility] Comment on above: Performed By: #### L ACWB #### [address] [address] Eosinophils/100 WBC (Bld) 1 % Normal 1-4 [facility] Comment on above: Performed By: #### L ACWB #### [address] [address] Immature granulocytes #/vol (Bld) 1 % High 0 [facility] Comment on above: Performed By: #### L ACWB #### [address] [address] Lymphocytes #/vol (Bld) 1.83 10*3/uL Normal 1.10-3.70 [facility] Comment on above: Performed By: #### L ACWB #### [address] [address] Lymphocytes/100 WBC (Bld) 21 % Low 24-43 [facility] Comment on above: Performed By: #### L ACWB #### [address] [address] Monocytes #/vol (Bld) 0.92 10*3/uL Normal 0.10-1.20 [facility] Comment on above: Performed By: #### L ACWB #### [address] [address] Monocytes/100 WBC (Bld) 11 % Normal 3-12 [facility] Comment on above: Performed By: #### L ACWB #### [address] [place] [address] Neutrophil (Seg) 66 % High 36-65 [facility] Comment on above: Performed By: #### L ACWB #### [facility] [employer] [address] [place] [address] 95987 Erythrocyte distribution width Ratio (RBC) 14.6 % High 11.8-14.4 [facility] Comment on above: Performed By: #### L ACWB #### [facility] [employer] [address] [place] [address] 87781 Hematocrit Volume Fraction (Bld) 32.6 % Low 36.3-47.1 [facility] Comment on above: Performed By: #### L ACWB #### [facility] [employer] [address] [place] [address] 41381 Hemoglobin mass conc (Bld) 10.0 g/dL Low 11.9-15.1 [facility] Comment on above: Performed By: #### L ACWB #### [facility] [employer] [address] [place] [address] 72558 MCH Entitic mass (RBC) 28.2 pg Normal 25.2-33.5 [facility] Comment on above: Performed By: #### L ACWB #### [facility] [employer] [address] [place] [address] 26619 MCHC mass conc (RBC) 30.7 g/dL Normal 28.4-34.8 [facility] Comment on above: Performed By: #### L ACWB #### [facility] [employer] [address] [place] [address] 63020 MCV Entitic volume (RBC) 91.8 fL Normal 82.6-102.9 [facility] Comment on above: Performed By: #### L ACWB #### [facility] [employer] [address] [place] [address] 36375 NRBC Automated 0.0 per 100 WBC Normal 0.0 [facility] Comment on above: Performed By: #### L ACWB #### [address] [address] Platelet mean volume Entitic volume (Bld) 10.4 fL Normal 8.1-13.5 [facility] Comment on above: Performed By: #### L ACWB #### [address] [address] Platelets #/vol (Bld) 292 10*3/uL Normal 138-453 [facility] Comment on above: Performed By: #### L ACWB #### [address] [address] RBC #/vol (Bld) 3.55 10*6/uL Low 3.95-5.11 [facility] Comment on above: Performed By: #### L ACWB #### [address] [address] RBC morphology finding Nom (Bld) ANISOCYTOSIS PRESENT Normal [facility] Comment on above: Performed By: #### L ACWB #### [address] [address] WBC #/vol (Bld) 8.8 10*3/uL Normal 3.5-11.3 [facility] Comment on above: Performed By: #### L ACWB #### [address] [address] Auto Diff Performed NOT REPORTED Normal [facility] Comment on above: Performed By: #### L ACWB #### [address] [address] Platelets #/vol (Bld) NOT REPORTED Normal [facility] Comment on above: Performed By: #### L ACWB #### [place] [place] [address] WBC Morphology NOT REPORTED Normal [facility] Comment on above: Performed By: #### L ACWB #### [facility] [employer] [address] [place] [address] Fungi,Direct Examon 08-25-20 18 Fungi,Direct Exam Specimen Description .SPINE .TISSUE T4 LAMINA Special Requests NOT REPORTED Direct Exam NO FUNGAL ELEMENTS SEEN Report Status FINAL 08/25/2018 Normal [facility] Comment on above: Performed By: #### L ACWB #### [facility] [employer] [facility] [place] [address] Magnesiumon 08-25-2018 Magnesium mass conc 2.4 mg/dL Normal 1.6-2.6 [facility] Comment on above: Performed By: #### L ACWB #### [address] [address] Procalcitoninon 08-25-2018 Protein mass conc 0.13 ng/mL High <0.09 [facility] Comment on above: Result Comment: Suspected [...] entered into the Change in Procalcitonin Calculator (www.nqifrm-gnl-nujahoowmy.com) to determine the patient's Mortality Risk Prognosis Performed By: #### L ACWB #### [facility] [employer] [address] [place] [address] [id number] Cult,Aerobe/Anaerobeon 08-24 Cult,Aerobe/Anaerobe Specimen Descriptio n .SPINE Special Requests NOT REPORTED Direct Exam DUPLICATE ORDER SEE RESULTS FOR TISSUE CULTURE Culture NOT REPORTED Report Status FINAL 08/24/2018 Normal [facility] Comment on above: Performed By: #### S PAG #### [facility] [address] [place], [place] [id number] Cult,Aerobe/Anaerobe Specimen Descriptio n .SPINE Special Requests NOT REPORTED Direct Exam DUPLICATE ORDER SEE RESUULTS FOR TISSUE CULTURE Culture NOT REPORTED Report Status FINAL 08/24/2018 Normal [facility] Comment on above: Performed By: #### S PAG #### [facility] [address] [place] [address] FLUORO FOR SURGICAL PROCEDUR ESon 08-24-2018 FLUORO FOR SURGICAL PROCEDURES Radiology exam is complete. No Radiologist dictation. Please follow up with ordering provider. Final result Normal [facility] OPERATIVE REPORTon 8 OPERATIVE REPORT [facility] [address] [place] [address] OPERATIVE REPORT PATIENT NAME: CELINA GASPAR : 1980 MED REC NO: [id number] ROOM: [facility] ACCOUNT NO: [id number] ADMIT DATE: 08/15/2018 PROVIDER: Lita Mccray MD DATE OF PROCEDURE: 08/23/2018 SURGEON: Lita Mccray MD DELIVERY RN: Eliel Larios DO PREOPERATIVE DIAGNOSIS: Epidural abscess, [...] satisfactory condition. LITA MCCRAY MD [id number] Doc#: [id number] CC: Lita Mccray MD [facility] Procalcitoninon 08-24-2018 Protein mass conc 0.16 ng/mL High <0.09 [facility] Comment on above: Result Comment: Suspected [...] entered into the Change in Procalcitonin Calculator (www.htpkha-bvi-honppvecea.Auto Secure) to determine the patient's Mortality Risk Prognosis Performed By: #### S PAG #### [facility] [address] [place] [address] Basic Metab w/rfx MGon 08-23 (cont.) [facility] Comment on above: Result Comment: Aver age GFR for 30-39 years old: 107 mL/min/1.73sq m Chronic Kidney Disease: <60 mL/min/1.73sq m Kidney failure: <15 mL/min/1.73sq m eGFR calculated using average adult body mass. Additional eGFR calculator available at: http://www.[employer].Auto Secure/multiple_crcl_2012.htm Performed By: #### S PAG #### [facility] [address] [place] [address] Anion gap molar conc 14 mmol/L Normal 9-17 [facility] Comment on above: Performed By: #### S PAG #### [facility] [employer] [address] [place] [address] Calcium mass conc 9.9 mg/dL Normal 8.6-10.4 [facility] Comment on above: Performed By: #### S PAG #### [facility] [employer] [address] [place] [address] 9[address]3 Chloride molar conc 99 mmol/L Normal 98-107 [facility] Comment on above: Performed By: #### S PAG #### [facility] [employer] [address] [place] [address] 79061 CO2 molar conc 26 mmol/L Normal 20-31 [facility] Comment on above: Performed By: #### S PAG #### [facility] [employer] [address] [place] [address] 45163 Creatinine mass conc 1.42 mg/dL High 0.50-0.90 [facility] Comment on above: Performed By: #### S PAG #### [facility] [employer] [facility] [place] [address] GFR, Amer 50 mL/min Low >60 [facility] Comment on above: Performed By: #### S PAG #### [facility] [employer] [address] [place] [address]63 GFR,non Amer 41 mL/min Low >60 [facility] Comment on above: Performed By: #### S PAG #### [facility] [employer] [address] [place] [address] Glucose mass conc 95 mg/dL Normal 70-99 [facility] Comment on above: Performed By: #### S PAG #### [place] [place] [address] Potassium molar conc 4.9 mmol/L Normal 3.7-5.3 [facility] Comment on above: Result Comment: SPEC IMEN SLIGHTLY HEMOLYZED, RESULTS MAY BE ADVERSELY AFFECTED. Performed By: #### S PAG #### [address] [address] Sodium molar conc 139 mmol/L Normal 135-144 [facility] Comment on above: Performed By: #### S PAG #### [address] [address] Urea nitrogen mass conc 31 mg/dL High 03-24 [facility] Comment on above: Performed By: #### S PAG #### [address] [address] BUN/CRE Ratio NOT REPORTED Normal 06-24 [facility] Comment on above: Performed By: #### S PAG #### [address] [address] Staging: NOT REPORTED Normal [facility] Comment on above: Performed By: #### S PAG #### [address] [address] CBC with Diffon 08-23-2018 Abs. Basophil 0.06 k/uL Normal 0.00-0.20 [facility] Comment on above: Performed By: #### S PAG #### [facility] [employer] [address] [place] [address] 07929 Abs.Imm.Granulocyte 0.22 k/uL Normal 0.00-0.30 [facility] Comment on above: Performed By: #### S PAG #### [facility] [employer] [address] [place] [address] Abs.Neutrophil (Seg) 4.43 k/uL Normal 1.50-8.10 [facility] Comment on above: Performed By: #### S PAG #### [address] [address] Basophils/100 WBC (Bld) 1 % Normal 0-2 [facility] Comment on above: Performed By: #### S PAG #### [address] [address] Eosinophils #/vol (Bld) 0.15 10*3/uL Normal 0.00-0.44 [facility] Comment on above: Performed By: #### S PAG #### [address] [address] Eosinophils/100 WBC (Bld) 2 % Normal 1-4 [facility] Comment on above: Performed By: #### S PAG #### [address] [address] Erythrocyte distribution width Ratio (RBC) 14.4 % Normal 11.8-14.4 [facility] Comment on above: Performed By: #### S PAG #### [address] [address] Hematocrit Volume Fraction (Bld) 33.2 % Low 36.3-47.1 [facility] Comment on above: Performed By: #### S PAG #### [address] [address] Hemoglobin mass conc (Bld) 10.4 g/dL Low 11.9-15.1 [facility] Comment on above: Performed By: #### S PAG #### [address] [address] Immature granulocytes #/vol (Bld) 3 % High 0 [facility] Comment on above: Performed By: #### S PAG #### [address] [address] Lymphocytes #/vol (Bld) 2.22 10*3/uL Normal 1.10-3.70 [facility] Comment on above: Performed By: #### S PAG #### [address] [address] Lymphocytes/100 WBC (Bld) 29 % Normal 24-43 [facility] Comment on above: Performed By: #### S PAG #### [address] [address] MCH Entitic mass (RBC) 27.7 pg Normal 25.2-33.5 [facility] Comment on above: Performed By: #### S PAG #### [address] [address] MCHC mass conc (RBC) 31.3 g/dL Normal 28.4-34.8 [facility] Comment on above: Performed By: #### S PAG #### [address] [address] MCV Entitic volume (RBC) 88.3 fL Normal 82.6-102.9 [facility] Comment on above: Performed By: #### S PAG #### [address] [address] Monocytes #/vol (Bld) 0.63 10*3/uL Normal 0.10-1.20 [facility] Comment on above: Performed By: #### S PAG #### [address] [address] Monocytes/100 WBC (Bld) 8 % Normal 3-12 [facility] Comment on above: Performed By: #### S PAG #### [address] [address] Neutrophil (Seg) 57 % Normal 36-65 [facility] Comment on above: Performed By: #### S PAG #### [address] [address] NRBC Automated 0.0 per 100 WBC Normal 0.0 [facility] Comment on above: Performed By: #### S PAG #### [address] [address] Platelets #/vol (Bld) See Reflexed IPF Result Normal 138-453 [facility] Comment on above: Performed By: #### S PAG #### [address] [address] RBC #/vol (Bld) 3.76 10*6/uL Low 3.95-5.11 [facility] Comment on above: Performed By: #### S PAG #### [address] [address] WBC #/vol (Bld) 7.7 10*3/uL Normal 3.5-11.3 [facility] Comment on above: Performed By: #### S PAG #### [address] [address] Auto Diff Performed NOT REPORTED Normal [facility] Comment on above: Performed By: #### S PAG #### [address] [address] Platelet mean volume Entitic volume (Bld) NOT REPORTED Normal 8.1-13.5 [facility] Comment on above: Performed By: #### S PAG #### [address] [address] Platelets #/vol (Bld) NOT REPORTED Normal [facility] Comment on above: Performed By: #### S PAG #### [address] [address] RBC morphology finding Nom (Bld) NOT REPORTED Normal [facility] Comment on above: Performed By: #### S PAG #### [address] [address] WBC Morphology NOT REPORTED Normal [facility] Comment on above: Performed By: #### S PAG #### [address] [address] Cult,Bloodon 08-23-2018 Cult,Blood Specimen Description .BLOOD Special Requests L AC 6ML Culture NO GROWTH 6 DAYS Report Status FINAL 08/23/2018 Normal [facility] Comment on above: Performed By: #### S PAG #### [address] [address] Cult,Blood Specimen Description .BLOOD Special Requests L FOREARM 6ML Culture NO GROWTH 6 DAYS Report Status FINAL 08/23/2018 Normal [facility] Comment on above: Performed By: #### S PAG #### [address] [address] PLT, Immature Fract.on 08-23 Platelet, Fluoresc. 113 k/uL Low 138-453 [facility] Comment on above: Performed By: #### S PAG #### [address] [address] PLT, Immature Fract. 3.7 % Normal 1.1-10.3 [facility] Comment on above: Performed By: #### S PAG #### [address] [address] CBC with Diffon 08-22-2018 Abs. Basophil 0.00 k/uL Normal 0.0-0.2 [facility] Comment on above: Performed By: #### U LAG #### [address] [address] Abs.Imm.Granulocyte 0.30 k/uL Normal 0.00-0.30 [facility] Comment on above: Performed By: #### U LAG #### [address] [address] Abs.Neutrophil (Seg) 4.87 k/uL Normal 1.8-7.7 [facility] Comment on above: Performed By: #### U LAG #### [address] [address] Basophils/100 WBC (Bld) 0 % Normal 0-2 [facility] Comment on above: Performed By: #### U LAG #### [address] [address] Eosinophils #/vol (Bld) 0.00 10*3/uL Normal 0.0-0.4 [facility] Comment on above: Performed By: #### U LAG #### [address] [address] Eosinophils/100 WBC (Bld) 0 % Low 1-4 [facility] Comment on above: Performed By: #### U LAG #### [address] [address] Immature granulocytes #/vol (Bld) 4 % High 0 [facility] Comment on above: Performed By: #### U LAG #### [address] [address] Lymphocytes #/vol (Bld) 1.88 10*3/uL Normal 1.0-4.8 [facility] Comment on above: Performed By: #### U LAG #### [address] [address] Lymphocytes/100 WBC (Bld) 25 % Normal 24-44 [facility] Comment on above: Performed By: #### U LAG #### [address] [address] Monocytes #/vol (Bld) 0.45 10*3/uL Normal 0.1-0.8 [facility] Comment on above: Performed By: #### U LAG #### [facility] [employer] [address] [place] [address] Monocytes/100 WBC (Bld) 6 % Normal 1-7 [facility] Comment on above: Performed By: #### U LAG #### [facility] [employer] [address] [place] [address] Morphology Interp Rehan (Bld) ANISOCYTOSIS PRESENT Normal [facility] Comment on above: Performed By: #### U LAG #### [facility] [employer] [address] [place] [address] 464[address] Neutrophil (Seg) 65 % Normal 36-66 [facility] Comment on above: Performed By: #### U LAG #### [facility] [employer] [address] [place] [address] Erythrocyte distribution width Ratio (RBC) 14.5 % High 11.8-14.4 [facility] Comment on above: Performed By: #### U LAG #### [facility] [employer] [address] [place] [address] Hematocrit Volume Fraction (Bld) 38.1 % Normal 36.3-47.1 [facility] Comment on above: Performed By: #### U LAG #### [facility] [employer] [address] [place] [address] 27[address] Hemoglobin mass conc (Bld) 11.5 g/dL Low 11.9-15.1 [facility] Comment on above: Performed By: #### U LAG #### [facility] [employer] [address] [place] [address] 20984 MCH Entitic mass (RBC) 28.3 pg Normal 25.2-33.5 [facility] Comment on above: Performed By: #### U LAG #### [address] [address] MCHC mass conc (RBC) 30.2 g/dL Normal 28.4-34.8 [facility] Comment on above: Performed By: #### U LAG #### [address] [address] MCV Entitic volume (RBC) 93.6 fL Normal 82.6-102.9 [facility] Comment on above: Performed By: #### U LAG #### [address] [address] NRBC Automated 0.0 per 100 WBC Normal 0.0 [facility] Comment on above: Performed By: #### U LAG #### [address] [address] Platelet mean volume Entitic volume (Bld) 10.7 fL Normal 8.1-13.5 [facility] Comment on above: Performed By: #### U LAG #### [address] [address] Platelets #/vol (Bld) 265 10*3/uL Normal 138-453 [facility] Comment on above: Performed By: #### U LAG #### [address] [address] RBC #/vol (Bld) 4.07 10*6/uL Normal 3.95-5.11 [facility] Comment on above: Performed By: #### U LAG #### [address] [address] WBC #/vol (Bld) 7.5 10*3/uL Normal 3.5-11.3 [facility] Comment on above: Performed By: #### U LAG #### [address] [address] Auto Diff Performed NOT REPORTED Normal [facility] Comment on above: Performed By: #### U LAG #### [address] [address] Platelets #/vol (Bld) NOT REPORTED Normal [facility] Comment on above: Performed By: #### U LAG #### [facility] [employer] [address] [place] [address] RBC morphology finding Nom (Bld) NOT REPORTED Normal [facility] Comment on above: Performed By: #### U LAG #### [address] [address] WBC Morphology NOT REPORTED Normal [facility] Comment on above: Performed By: #### U LAG #### [address] [address] Comp Metabolic Pr/rfx MGon 1 10-22-2017 Albumin mass conc 3.2 g/dL Low 3.5-5.2 [facility] Comment on above: Performed By: #### U LAG #### [address] [address] Albumin/Globulin mass ratio 0.8 {ratio} Low 1.0-2.5 [facility] Comment on above: Performed By: #### U LAG #### [address] [address] Alkaline Phos 90 U/L Normal 35-104 [facility] Comment on above: Performed By: #### U LAG #### [facility] [employer] [address] [place] [address] 87058 ALT enzyme act/vol 18 U/L Normal 5-33 [facility] Comment on above: Performed By: #### U LAG #### [address] [address] AST enzyme act/vol 16 U/L Normal <32 [facility] Comment on above: Performed By: #### U LAG #### [facility] [address] [place] [address]287 Protein mass conc 7.0 g/dL Normal 6.4-8.3 [facility] Comment on above: Performed By: #### U LAG #### [facility] [employer] [address] [place] [address]80 (cont.) Normal [facility] Comment on above: Result Comment: Aver age GFR for 30-39 years old: 107 mL/min/1.73sq m Chronic Kidney Disease: <60 mL/min/1.73sq m Kidney failure: <15 mL/min/1.73sq m eGFR calculated using average adult body mass. Additional eGFR calculator available at: http://www.[employer]/multiple_crcl_2011.htm Performed By: #### U LAG #### [facility] [employer] [address] [place] [address] Anion gap molar conc 15 mmol/L Normal 9-17 [facility] Comment on above: Performed By: #### U LAG #### [facility] [employer] [address] [place] [address]06 Bilirubin Ql (U) 0.34 mg/dL Normal 0.3-1.2 [facility] Comment on above: Performed By: #### U LAG #### [employer] [address] [place] [address] 37821 Calcium mass conc 9.7 mg/dL Normal 8.6-10.4 [facility] Comment on above: Performed By: #### U LAG #### [facility] [employer] [address] [place] [address] 87124 Chloride molar conc 100 mmol/L Normal 98-107 [facility] Comment on above: Performed By: #### U LAG #### [facility] [address] [address] CO2 molar conc 24 mmol/L Normal 20-31 [facility] Comment on above: Performed By: #### U LAG #### [facility] [employer] [address] [place] [address] 89038 Creatinine mass conc 1.02 mg/dL High 0.50-0.90 [facility] Comment on above: Performed By: #### U LAG #### [facility] [employer] [address] [place] [address] 79359 GFR, Amer >60 Normal >60 [facility] Comment on above: Performed By: #### U LAG #### [facility] [employer] [address] [place] [address] 14502 GFR,non Amer >60 Normal >60 [facility] Comment on above: Performed By: #### U LAG #### [facility] [employer] [address] [place] [address] 18773 Glucose mass conc 101 mg/dL High 70-99 [facility] Comment on above: Performed By: #### U LAG #### [facility] [employer] [address] [place] [address] 93006 Potassium molar conc 4.5 mmol/L Normal 3.7-5.3 [facility] Comment on above: Performed By: #### U LAG #### [facility] [employer] [address] [place] [address] 71659 Sodium molar conc 139 mmol/L Normal 135-144 [facility] Comment on above: Performed By: #### U LAG #### [facility] [employer] [address] [place] [address] 46374 Urea nitrogen mass conc 19 mg/dL Normal 6-20 [facility] Comment on above: Performed By: #### U LAG #### [facility] [employer] [address] [place] [address] 72330 BUN/CRE Ratio NOT REPORTED Normal - [facility] Comment on above: Performed By: #### U LAG #### [facility] [employer] [address] [place] [address] 12921 Staging: NOT REPORTED Normal [facility] Comment on above: Performed By: #### U LAG #### [facility] [employer] [address] [place] [address] 91304 Magnesiumon 08-22-2018 Magnesium mass conc 2.4 mg/dL Normal 1.6-2.6 [facility] Comment on above: Performed By: #### U LAG #### [facility] [employer] [address] [place] [address] 52324 Vancomycin Troughon 08-22-20 18 Vancomycin Trough 20.2 ug/mL Critically high 10.0-20.0 [facility] Comment on above: Result Comment: High er trough serum vancomycin concentrations of 15-20 ug/mL are recommended for complicated infections such as bacteremia, endocarditis, osteomyelitis, meningitis, and hospital acquired pneumonia. ADDED ON Performed By: #### U LAG #### [facility] [employer] [address] [place] [address] 55414 Date last dose, NOT REPORTED Normal [facility] Comment on above: Performed By: #### U LAG #### [facility] [employer] [address] [place] [address] 51236 Dose amount, NOT REPORTED Normal [facility] Comment on above: Performed By: #### U LAG #### [facility] [employer] [address] [place] [address] 95356 Time last dose, NOT REPORTED Normal [facility] Comment on above: Performed By: #### U LAG #### [facility] [employer] [address] [place] [address] 54038 CBC with Diffon 08-21-2018 Abs. Basophil 0.08 k/uL Normal 0.00-0.20 [facility] Comment on above: Performed By: #### U LAG #### [address] [address] Abs.Imm.Granulocyte 0.50 k/uL High 0.00-0.30 [facility] Comment on above: Performed By: #### U LAG #### [address] [address] Abs.Neutrophil (Seg) 4.73 k/uL Normal 1.50-8.10 [facility] Comment on above: Performed By: #### U LAG #### [address] [address]120 Basophils/100 WBC (Bld) 1 % Normal 0-2 [facility] Comment on above: Performed By: #### U LAG #### [address] 07124 Eosinophils #/vol (Bld) 0.17 10*3/uL Normal 0.00-0.44 [facility] Comment on above: Performed By: #### U LAG #### [address] 25[address] Eosinophils/100 WBC (Bld) 2 % Normal 1-4 [facility] Comment on above: Performed By: #### U LAG #### [address] 37298 Immature granulocytes #/vol (Bld) 6 % High 0 [facility] Comment on above: Performed By: #### U LAG #### [address] 61047 Lymphocytes #/vol (Bld) 2.24 10*3/uL Normal 1.10-3.70 [facility] Comment on above: Performed By: #### U LAG #### [address] 41622 Lymphocytes/100 WBC (Bld) 27 % Normal 24-43 [facility] Comment on above: Performed By: #### U LAG #### [facility] [employer] [address] [place] [address] 43529 Monocytes #/vol (Bld) 0.58 10*3/uL Normal 0.10-1.20 [facility] Comment on above: Performed By: #### U LAG #### [facility] [employer] [address] [place] [address] 41667 Monocytes/100 WBC (Bld) 7 % Normal 3-12 [facility] Comment on above: Performed By: #### U LAG #### [facility] [employer] [address] [place] [address] 76833 Morphology Interp Rehan (Bld) ANISOCYTOSIS PRESENT Normal [facility] Comment on above: Performed By: #### U LAG #### [facility] [employer] [address] [place] [address] 24279 Neutrophil (Seg) 57 % Normal 36-65 [facility] Comment on above: Performed By: #### U LAG #### [facility] [employer] [address] [place] [address] 82632 Erythrocyte distribution width Ratio (RBC) 14.6 % High 11.8-14.4 [facility] Comment on above: Performed By: #### U LAG #### [facility] [employer] [address] [place] [address] 71986 Hematocrit Volume Fraction (Bld) 38.5 % Normal 36.3-47.1 [facility] Comment on above: Performed By: #### U LAG #### [facility] [employer] [address] [place] [address] 47123 Hemoglobin mass conc (Bld) 11.5 g/dL Low 11.9-15.1 [facility] Comment on above: Performed By: #### U LAG #### [address] [address] MCH Entitic mass (RBC) 28.2 pg Normal 25.2-33.5 [facility] Comment on above: Performed By: #### U LAG #### [address] 32356 MCHC mass conc (RBC) 29.9 g/dL Normal 28.4-34.8 [facility] Comment on above: Performed By: #### U LAG #### [address] 40702 MCV Entitic volume (RBC) 94.4 fL Normal 82.6-102.9 [facility] Comment on above: Performed By: #### U LAG #### [address] [address]176 NRBC Automated 0.0 per 100 WBC Normal 0.0 [facility] Comment on above: Performed By: #### U LAG #### [address] 85083 Platelet mean volume Entitic volume (Bld) 10.5 fL Normal 8.1-13.5 [facility] Comment on above: Performed By: #### U LAG #### [address] 27957 Platelets #/vol (Bld) 264 10*3/uL Normal 138-453 [facility] Comment on above: Performed By: #### U LAG #### [address] [address] RBC #/vol (Bld) 4.08 10*6/uL Normal 3.95-5.11 [facility] Comment on above: Performed By: #### U LAG #### [address] 716[address] WBC #/vol (Bld) 8.3 10*3/uL Normal 3.5-11.3 [facility] Comment on above: Performed By: #### U LAG #### [address] 94774 Auto Diff Performed NOT REPORTED Normal [facility] Comment on above: Performed By: #### U LAG #### [facility] [employer] [address] [place] [address] 25074 Platelets #/vol (Bld) NOT REPORTED Normal [facility] Comment on above: Performed By: #### U LAG #### [address] 10288 RBC morphology finding Nom (Bld) NOT REPORTED Normal [facility] Comment on above: Performed By: #### U LAG #### [address] 18999 WBC Morphology NOT REPORTED Normal [facility] Comment on above: Performed By: #### U LAG #### [address] 85743 Comp Metabolic Pr/rfx MGon 1 10-21-2017 (cont.) Normal [facility] Comment on above: Result Comment: Aver age GFR for 30-39 years old: 107 mL/min/1.73sq m Chronic Kidney Disease: <60 mL/min/1.73sq m Kidney failure: <15 mL/min/1.73sq m eGFR calculated using average adult body mass. Additional eGFR calculator available at: http://www.[employer].com/multiple_crcl_2012.htm Performed By: #### U LAG #### [address] 31427 Albumin mass conc 2.9 g/dL Low 3.5-5.2 [facility] Comment on above: Performed By: #### U LAG #### [address] [place] [address] Albumin/Globulin mass ratio 0.7 {ratio} Low 1.0-2.5 [facility] Comment on above: Performed By: #### U LAG #### [facility] [employer] [address] [place] [address] 36317 Alkaline Phos 98 U/L Normal 35-104 [facility] Comment on above: Performed By: #### U LAG #### [facility] [employer] [address] [place] [address] 25695 ALT enzyme act/vol 19 U/L Normal 5-33 [facility] Comment on above: Performed By: #### U LAG #### [facility] [employer] [address] [place] [address] 61094 Anion gap molar conc 14 mmol/L Normal 9-17 [facility] Comment on above: Performed By: #### U LAG #### [facility] [employer] [address] [place] [address] 03546 AST enzyme act/vol 21 U/L Normal <32 [facility] Comment on above: Performed By: #### U LAG #### [facility] [employer] [address] [place] [address] 67360 Bilirubin Ql (U) 0.32 mg/dL Normal 0.3-1.2 [facility] Comment on above: Performed By: #### U LAG #### [facility] [employer] [address] [place] [address] 29617 Calcium mass conc 9.1 mg/dL Normal 8.6-10.4 [facility] Comment on above: Performed By: #### U LAG #### [facility] [employer] [address] [place] [address] 54336 Chloride molar conc 102 mmol/L Normal 98-107 [facility] Comment on above: Performed By: #### U LAG #### [facility] [employer] [address] [place] [address] 28617 CO2 molar conc 23 mmol/L Normal 20-31 [facility] Comment on above: Performed By: #### U LAG #### [facility] [employer] [address] [place] [address] 29831 Creatinine mass conc 0.90 mg/dL Normal 0.50-0.90 [facility] Comment on above: Performed By: #### U LAG #### [facility] [employer] [address] [place] [address] 02870 GFR, Amer >60 Normal >60 [facility] Comment on above: Performed By: #### U LAG #### [facility] [employer] [address] [place] [address] 76341 GFR,non Amer >60 Normal >60 [facility] Comment on above: Performed By: #### U LAG #### [facility] [employer] [address] [place] [address] 29541 Glucose mass conc 108 mg/dL High 70-99 [facility] Comment on above: Performed By: #### U LAG #### [facility] [employer] [address] [place] [address] 98930 Potassium molar conc 4.6 mmol/L Normal 3.7-5.3 [facility] Comment on above: Performed By: #### U LAG #### [facility] [employer] [address] [place] [address] 28432 Protein mass conc 6.9 g/dL Normal 6.4-8.3 [facility] Comment on above: Performed By: #### U LAG #### [facility] [employer] [address] [place] [address] 72624 Sodium molar conc 139 mmol/L Normal 135-144 [facility] Comment on above: Performed By: #### U LAG #### [facility] [employer] [address] [place] [address] [phone] Urea nitrogen mass conc 17 mg/dL Normal 6-20 [facility] Comment on above: Performed By: #### U LAG #### [facility] [employer] [facility] [place], [place] [phone] BUN/CRE Ratio NOT REPORTED Normal 9-20 [facility] Comment on above: Performed By: #### U LAG #### [employer] [facility] [place] [address] Staging: NOT REPORTED Normal [facility] Comment on above: Performed By: #### U LAG #### [facility] [employer] [address] [place] [address] 02887 Cult,Bloodon 08-21-2018 Cult,Blood Specimen Description .BLOOD Special Requests L AC 20ML Culture POSITIVE Blood Culture CALLED TO MIS Medina [phone] [id number] DIRECT GRAM STAIN FROM BOTTLE: GRAM POSITIVE COCCI IN CLUSTERS METHICILLIN RESISTANT STAPHYLOCOCCUS AUREUS For susceptibility, refer to previous culture. Report Status FINAL 08/21/2018 Normal [facility] Comment on above: Performed By: #### U LAG #### [address] [address] MRI FOOT LEFT W WO CONTRASTo n [...] Murali Goff MD 08/21/18 Final result Normal [facility] Magnesiumon 08-21-2018 Magnesium mass conc 2.4 mg/dL Normal 1.6-2.6 [facility] Comment on above: Performed By: #### U LAG #### [facility] [employer] [address] [place] [address] 61981 Procalcitoninon 08-21-2018 Protein mass conc 0.27 ng/mL High <0.09 [facility] Comment on above: Result Comment: Suspected [...] entered into the Change in Procalcitonin Calculator (www.wjrevc-oxr-tmbpdperpz.Auto Secure) to determine the patient's Mortality Risk Prognosis Performed By: #### U LAG #### [facility] [employer] [address] [place] [address] 38869 C-Reactive Proteinon 018 CRP mass conc 50.4 mg/L High 0.0-5.0 [facility] Comment on above: Performed By: #### L ACDS, TROPI, PRCAL, MYCM #### [employer] [address] [place] [address] 90167 CBC with Diffon 08-20-2018 Abs. Basophil 0.08 k/uL Normal 0.0-0.2 [facility] Comment on above: Performed By: #### L ACDS, TROPI, PRCAL, MYCM #### [employer] [address] [place] [address] 41527 Abs.Imm.Granulocyte 0.42 k/uL High 0.00-0.30 [facility] Comment on above: Performed By: #### L ACDS, TROPI, PRCAL, MYCM #### [facility] [facility] [place] [address] Abs.Neutrophil (Seg) 4.57 k/uL Normal 1.8-7.7 [facility] Comment on above: Performed By: #### L ACDS, TROPI, PRCAL, MYCM #### [employer] [address] [place] [address] 22436 Basophils/100 WBC (Bld) 1 % Normal 0-2 [facility] Comment on above: Performed By: #### L ACDS, TROPI, PRCAL, MYCM #### [address] [address] Eosinophils #/vol (Bld) 0.25 10*3/uL Normal 0.0-0.4 [facility] Comment on above: Performed By: #### L ACDS, TROPI, PRCAL, MYCM #### [address] 93623 Eosinophils/100 WBC (Bld) 3 % Normal 1-4 [facility] Comment on above: Performed By: #### L ACDS, TROPI, PRCAL, MYCM #### [address] [address]889 Immature granulocytes #/vol (Bld) 5 % High 0 [facility] Comment on above: Performed By: #### L ACDS, TROPI, PRCAL, MYCM #### [address] 785[address] Lymphocytes #/vol (Bld) 2.32 10*3/uL Normal 1.0-4.8 [facility] Comment on above: Performed By: #### L ACDS, TROPI, PRCAL, MYCM #### [address] 53462 Lymphocytes/100 WBC (Bld) 28 % Normal 24-44 [facility] Comment on above: Performed By: #### L ACDS, TROPI, PRCAL, MYCM #### [address] [address] Monocytes #/vol (Bld) 0.66 10*3/uL Normal 0.1-0.8 [facility] Comment on above: Performed By: #### L ACDS, TROPI, PRCAL, MYCM #### [facility] [address] [place] [address] 12054 Monocytes/100 WBC (Bld) 8 % High 1-7 [facility] Comment on above: Performed By: #### L ACDS, TROPI, PRCAL, MYCM #### [facility] [employer] [address] [place] [address] 42076 Morphology Interp Rehan (Bld) ANISOCYTOSIS PRESENT Normal [facility] Comment on above: Performed By: #### L ACDS, TROPI, PRCAL, MYCM #### [facility] [employer] [address] [place] [address] 47939 Neutrophil (Seg) 55 % Normal 36-66 [facility] Comment on above: Performed By: #### L ACDS, TROPI, PRCAL, MYCM #### [facility] [employer] [address] [place] [address] 63947 Erythrocyte distribution width Ratio (RBC) 14.6 % High 11.8-14.4 [facility] Comment on above: Performed By: #### L ACDS, TROPI, PRCAL, MYCM #### [facility] [employer] [address] [place] [address] 49487 Hematocrit Volume Fraction (Bld) 33.5 % Low 36.3-47.1 [facility] Comment on above: Performed By: #### L ACDS, TROPI, PRCAL, MYCM #### [facility] [employer] [address] [place] [address] 43452 Hemoglobin mass conc (Bld) 10.2 g/dL Low 11.9-15.1 [facility] Comment on above: Performed By: #### L ACDS, TROPI, PRCAL, MYCM #### [facility] [employer] [address] [place] [address] 89165 MCH Entitic mass (RBC) 27.9 pg Normal 25.2-33.5 [facility] Comment on above: Performed By: #### L ACDS, TROPI, PRCAL, MYCM #### [address] 37540 MCHC mass conc (RBC) 30.4 g/dL Normal 28.4-34.8 [facility] Comment on above: Performed By: #### L ACDS, TROPI, PRCAL, MYCM #### [address] 30017 MCV Entitic volume (RBC) 91.5 fL Normal 82.6-102.9 [facility] Comment on above: Performed By: #### L ACDS, TROPI, PRCAL, MYCM #### [address] 91320 NRBC Automated 0.0 per 100 WBC Normal 0.0 [facility] Comment on above: Performed By: #### L ACDS, TROPI, PRCAL, MYCM #### [address] [address]657 Platelet mean volume Entitic volume (Bld) 11.0 fL Normal 8.1-13.5 [facility] Comment on above: Performed By: #### L ACDS, TROPI, PRCAL, MYCM #### [address] 05633 Platelets #/vol (Bld) 211 10*3/uL Normal 138-453 [facility] Comment on above: Performed By: #### L ACDS, TROPI, PRCAL, MYCM #### [address] [address] RBC #/vol (Bld) 3.66 10*6/uL Low 3.95-5.11 [facility] Comment on above: Performed By: #### L ACDS, TROPI, PRCAL, MYCM #### [address] 78498 WBC #/vol (Bld) 8.3 10*3/uL Normal 3.5-11.3 [facility] Comment on above: Performed By: #### L ACDS, TROPI, PRCAL, MYCM #### [employer] [address] [place] [address] 46883 Auto Diff Performed NOT REPORTED Normal [facility] Comment on above: Performed By: #### L ACDS, TROPI, PRCAL, MYCM #### [employer] [address] [place] [address] 08448 Platelets #/vol (Bld) NOT REPORTED Normal [facility] Comment on above: Performed By: #### L ACDS, TROPI, PRCAL, MYCM #### [facility] [address] [place] [address] 08238 RBC morphology finding Nom (Bld) NOT REPORTED Normal [facility] Comment on above: Performed By: #### L ACDS, TROPI, PRCAL, MYCM #### [facility] [address] [place] [address] 42070 WBC Morphology NOT REPORTED Normal [facility] Comment on above: Performed By: #### L ACDS, TROPI, PRCAL, MYCM #### [facility] [employer] [address] [place] [address] 86927 Comp Metabolic Pr/rfx MGon 1 10-20-2017 (cont.) Normal [facility] Comment on above: Result Comment: Aver age GFR for 30-39 years old: 107 mL/min/1.73sq m Chronic Kidney Disease: <60 mL/min/1.73sq m Kidney failure: <15 mL/min/1.73sq m eGFR calculated using average adult body mass. Additional eGFR calculator available at: http://www.[employer].Auto Secure/multiple_crcl_2012.htm Performed By: #### L ACDS, TROPI, PRCAL, MYCM #### [facility] [employer] [address] [place] [address] 63028 Albumin mass conc 3.1 g/dL Low 3.5-5.2 [facility] Comment on above: Performed By: #### L ACDS, TROPI, PRCAL, MYCM #### [facility] [employer] [address] [place] [address] 06885 Albumin/Globulin mass ratio 0.9 {ratio} Low 1.0-2.5 [facility] Comment on above: Performed By: #### L ACDS, TROPI, PRCAL, MYCM #### [facility] [employer] [address] [place] [address] 05627 Alkaline Phos 83 U/L Normal 35-104 [facility] Comment on above: Performed By: #### L ACDS, TROPI, PRCAL, MYCM #### [facility] [employer] [address] [place] [address] 37620 ALT enzyme act/vol 17 U/L Normal 5-33 [facility] Comment on above: Performed By: #### L ACDS, TROPI, PRCAL, MYCM #### [facility] [employer] [address] [place] [address] 46008 Anion gap molar conc 11 mmol/L Normal 9-17 [facility] Comment on above: Performed By: #### L ACDS, TROPI, PRCAL, MYCM #### [facility] [employer] [address] [place] [address] 00514 AST enzyme act/vol 18 U/L Normal <32 [facility] Comment on above: Performed By: #### L ACDS, TROPI, PRCAL, MYCM #### [facility] [employer] [address] [place] [address] 50039 Bilirubin Ql (U) 0.29 mg/dL Low 0.3-1.2 [facility] Comment on above: Performed By: #### L ACDS, TROPI, PRCAL, MYCM #### [address] [address] Calcium mass conc 9.0 mg/dL Normal 8.6-10.4 [facility] Comment on above: Performed By: #### L ACDS, TROPI, PRCAL, MYCM #### [facility] [employer] [address] [place] [address] 55859 Chloride molar conc 101 mmol/L Normal 98-107 [facility] Comment on above: Performed By: #### L ACDS, TROPI, PRCAL, MYCM #### [facility] [employer] [address] [place] [address] 76753 CO2 molar conc 27 mmol/L Normal 20-31 [facility] Comment on above: Performed By: #### L ACDS, TROPI, PRCAL, MYCM #### [facility] [employer] [address] [place] [address] 09553 Creatinine mass conc 0.97 mg/dL High 0.50-0.90 [facility] Comment on above: Performed By: #### L ACDS, TROPI, PRCAL, MYCM #### [facility] [employer] [address] [place] [address] 34262 GFR, Amer >60 Normal >60 [facility] Comment on above: Performed By: #### L ACDS, TROPI, PRCAL, MYCM #### [facility] [employer] [address] [place] [address] 40399 GFR,non Amer >60 Normal >60 [facility] Comment on above: Performed By: #### L ACDS, TROPI, PRCAL, MYCM #### [facility] [employer] [address] [place] [address] 36671 Glucose mass conc 105 mg/dL High 70-99 [facility] Comment on above: Performed By: #### L ACDS, TROPI, PRCAL, MYCM #### [facility] [employer] [address] [place] [address] 05188 Potassium molar conc 4.4 mmol/L Normal 3.7-5.3 [facility] Comment on above: Performed By: #### L ACDS, TROPI, PRCAL, MYCM #### [facility] [facility] [address] [place] [address] 52104 Protein mass conc 6.6 g/dL Normal 6.4-8.3 [facility] Comment on above: Performed By: #### L ACDS, TROPI, PRCAL, MYCM #### [facility] [address] [place] [address] 36394 Sodium molar conc 139 mmol/L Normal 135-144 [facility] Comment on above: Performed By: #### L ACDS, TROPI, PRCAL, MYCM #### [facility] [address] [place] [address] 70089 Urea nitrogen mass conc 15 mg/dL Normal 6-20 [facility] Comment on above: Performed By: #### L ACDS, TROPI, PRCAL, MYCM #### [facility] [address] [place] [address] 19536 BUN/CRE Ratio NOT REPORTED Normal -20 [facility] Comment on above: Performed By: #### L ACDS, TROPI, PRCAL, MYCM #### [facility] [address] [place] [address] 23394 Staging: NOT REPORTED Normal [facility] Comment on above: Performed By: #### L ACDS, TROPI, PRCAL, MYCM #### [facility] [address] [place] [address] 56985 Magnesiumon 08-20-2018 Magnesium mass conc 2.2 mg/dL Normal 1.6-2.6 [facility] Comment on above: Performed By: #### L ACDS, TROPI, PRCAL, MYCM #### [facility] [place] [address] Sedimentation Rateon 018 Sedimentation Rate 100 mm High 0-20 [facility] Comment on above: Performed By: #### L ACDS, TROPI, PRCAL, MYCM #### [address] [address] XR FOOT LEFT (MIN 3 VIEWS)on 08-20-2018 [...] Andrey Angelo MD 08/20/18 Final result Normal [facility] CBC with Diffon 08-19-2018 Abs. Basophil 0.00 k/uL Normal 0.0-0.2 [facility] Comment on above: Performed By: #### L ACDS, TROPI, PRCAL, MYCM #### [facility] [address] [place] [address] 24679 Abs.Imm.Granulocyte 0.42 k/uL High 0.00-0.30 [facility] Comment on above: Performed By: #### L ACDS, TROPI, PRCAL, MYCM #### [facility] [address] [place] [address] 36987 Abs.Neutrophil (Seg) 2.70 k/uL Normal 1.8-7.7 [facility] Comment on above: Performed By: #### L ACDS, TROPI, PRCAL, MYCM #### [facility] [address] [place] [address] 35751 Basophils/100 WBC (Bld) 0 % Normal 0-2 [facility] Comment on above: Performed By: #### L ACDS, TROPI, PRCAL, MYCM #### [address] [address] Eosinophils #/vol (Bld) 0.30 10*3/uL Normal 0.0-0.4 [facility] Comment on above: Performed By: #### L ACDS, TROPI, PRCAL, MYCM #### [facility] [address] [place] [address] 11442 Eosinophils/100 WBC (Bld) 5 % High 1-4 [facility] Comment on above: Performed By: #### L ACDS, TROPI, PRCAL, MYCM #### [address] [address] Immature granulocytes #/vol (Bld) 7 % High 0 [facility] Comment on above: Performed By: #### L ACDS, TROPI, PRCAL, MYCM #### [address] [address] Lymphocytes #/vol (Bld) 2.22 10*3/uL Normal 1.0-4.8 [facility] Comment on above: Performed By: #### L ACDS, TROPI, PRCAL, MYCM #### [address] [address] Lymphocytes/100 WBC (Bld) 37 % Normal 24-44 [facility] Comment on above: Performed By: #### L ACDS, TROPI, PRCAL, MYCM #### [address] [address] Monocytes #/vol (Bld) 0.36 10*3/uL Normal 0.1-0.8 [facility] Comment on above: Performed By: #### L ACDS, TROPI, PRCAL, MYCM #### [facility] [address] [place] [address] 07074 Monocytes/100 WBC (Bld) 6 % Normal 1-7 [facility] Comment on above: Performed By: #### L ACDS, TROPI, PRCAL, MYCM #### [facility] [address] [place] [address] 66642 Morphology Interp Rehan (Bld) ANISOCYTOSIS PRESENT Normal [facility] Comment on above: Performed By: #### L ACDS, TROPI, PRCAL, MYCM #### [facility] [address] [place] [address] 76870 Neutrophil (Seg) 45 % Normal 36-66 [facility] Comment on above: Performed By: #### L ACDS, TROPI, PRCAL, MYCM #### [facility] [address] [place] [address] 09565 Erythrocyte distribution width Ratio (RBC) 14.6 % High 11.8-14.4 [facility] Comment on above: Performed By: #### L ACDS, TROPI, PRCAL, MYCM #### [facility] [address] [place] [address] 27366 Hematocrit Volume Fraction (Bld) 34.4 % Low 36.3-47.1 [facility] Comment on above: Performed By: #### L ACDS, TROPI, PRCAL, MYCM #### [facility] [address] [place] [address] 09231 Hemoglobin mass conc (Bld) 10.4 g/dL Low 11.9-15.1 [facility] Comment on above: Performed By: #### L ACDS, TROPI, PRCAL, MYCM #### [facility] [address] [place] [address] 79146 MCH Entitic mass (RBC) 28.0 pg Normal 25.2-33.5 [facility] Comment on above: Performed By: #### L ACDS, TROPI, PRCAL, MYCM #### [address] 058[address] MCHC mass conc (RBC) 30.2 g/dL Normal 28.4-34.8 [facility] Comment on above: Performed By: #### L ACDS, TROPI, PRCAL, MYCM #### [address] [address] MCV Entitic volume (RBC) 92.7 fL Normal 82.6-102.9 [facility] Comment on above: Performed By: #### L ACDS, TROPI, PRCAL, MYCM #### [address] 9[address] NRBC Automated 0.3 per 100 WBC High 0.0 [facility] Comment on above: Performed By: #### L ACDS, TROPI, PRCAL, MYCM #### [address] [address] Platelet mean volume Entitic volume (Bld) 10.5 fL Normal 8.1-13.5 [facility] Comment on above: Performed By: #### L ACDS, TROPI, PRCAL, MYCM #### [address] [address]96 Platelets #/vol (Bld) 168 10*3/uL Normal 138-453 [facility] Comment on above: Performed By: #### L ACDS, TROPI, PRCAL, MYCM #### [address] 7[address] RBC #/vol (Bld) 3.71 10*6/uL Low 3.95-5.11 [facility] Comment on above: Performed By: #### L ACDS, TROPI, PRCAL, MYCM #### [address] [address] WBC #/vol (Bld) 6.0 10*3/uL Normal 3.5-11.3 [facility] Comment on above: Performed By: #### L ACDS, TROPI, PRCAL, MYCM #### [address] 18218 Auto Diff Performed NOT REPORTED Normal [facility] Comment on above: Performed By: #### L ACDS, TROPI, PRCAL, MYCM #### [address] [address] Platelets #/vol (Bld) NOT REPORTED Normal [facility] Comment on above: Performed By: #### L ACDS, TROPI, PRCAL, MYCM #### [address] 55143 RBC morphology finding Nom (Bld) NOT REPORTED Normal [facility] Comment on above: Performed By: #### L ACDS, TROPI, PRCAL, MYCM #### [address] [address] WBC Morphology NOT REPORTED Normal [facility] Comment on above: Performed By: #### L ACDS, TROPI, PRCAL, MYCM #### [address] [address] Comp Metabolic Pr/rfx MGon 1 10-19-2017 (cont.) Normal [facility] Comment on above: Result Comment: Aver age GFR for 30-39 years old: 107 mL/min/1.73sq m Chronic Kidney Disease: <60 mL/min/1.73sq m Kidney failure: <15 mL/min/1.73sq m eGFR calculated using average adult body mass. Additional eGFR calculator available at: http://www.[employer]/multiple_crcl_2011.htm Performed By: #### L ACDS, TROPI, PRCAL, MYCM #### [facility] [address] [place] [address] 02721 Albumin mass conc 2.7 g/dL Low 3.5-5.2 [facility] Comment on above: Performed By: #### L ACDS, TROPI, PRCAL, MYCM #### [facility] [address] [place] [address] 59212 Albumin/Globulin mass ratio 0.8 {ratio} Low 1.0-2.5 [facility] Comment on above: Performed By: #### L ACDS, TROPI, PRCAL, MYCM #### [facility] [address] [place] [address] 10967 Alkaline Phos 78 U/L Normal 35-104 [facility] Comment on above: Performed By: #### L ACDS, TROPI, PRCAL, MYCM #### [facility] [address] [place] [address] 33874 ALT enzyme act/vol 16 U/L Normal 5-33 [facility] Comment on above: Performed By: #### L ACDS, TROPI, PRCAL, MYCM #### [facility] [address] [place] [address] 06564 Anion gap molar conc 10 mmol/L Normal 9-17 [facility] Comment on above: Performed By: #### L ACDS, TROPI, PRCAL, MYCM #### [facility] [address] [place] [address] 26355 AST enzyme act/vol 16 U/L Normal <32 [facility] Comment on above: Performed By: #### L ACDS, TROPI, PRCAL, MYCM #### [facility] [address] [place] [address] 19227 Bilirubin Ql (U) 0.21 mg/dL Low 0.3-1.2 [facility] Comment on above: Performed By: #### L ACDS, TROPI, PRCAL, MYCM #### [facility] [address] [place] [address] 03543 Calcium mass conc 8.5 mg/dL Low 8.6-10.4 [facility] Comment on above: Performed By: #### L ACDS, TROPI, PRCAL, MYCM #### [facility] [address] [place] [address] 06147 Chloride molar conc 103 mmol/L Normal 98-107 [facility] Comment on above: Performed By: #### L ACDS, TROPI, PRCAL, MYCM #### [facility] [address] [place] [address] 27379 CO2 molar conc 24 mmol/L Normal 20-31 [facility] Comment on above: Performed By: #### L ACDS, TROPI, PRCAL, MYCM #### [facility] [address] [place] [address] 96586 Creatinine mass conc 0.88 mg/dL Normal 0.50-0.90 [facility] Comment on above: Performed By: #### L ACDS, TROPI, PRCAL, MYCM #### [facility] [address] [place] [address] 75240 GFR, Amer >60 Normal >60 [facility] Comment on above: Performed By: #### L ACDS, TROPI, PRCAL, MYCM #### [facility] [address] [place] [address] 04835 GFR,non Amer >60 Normal >60 [facility] Comment on above: Performed By: #### L ACDS, TROPI, PRCAL, MYCM #### [employer] [address] [place] [address] 03105 Glucose mass conc 104 mg/dL High 70-99 [facility] Comment on above: Performed By: #### L ACDS, TROPI, PRCAL, MYCM #### [address] [address] Potassium molar conc 4.0 mmol/L Normal 3.7-5.3 [facility] Comment on above: Performed By: #### L ACDS, TROPI, PRCAL, MYCM #### [address] [address]405 Protein mass conc 6.3 g/dL Low 6.4-8.3 [facility] Comment on above: Performed By: #### L ACDS, TROPI, PRCAL, MYCM #### [facility] [address] [place] [address] 79342 Sodium molar conc 137 mmol/L Normal 135-144 [facility] Comment on above: Performed By: #### L ACDS, TROPI, PRCAL, MYCM #### [facility] [address] [place] [address] 60583 Urea nitrogen mass conc 16 mg/dL Normal 6-20 [facility] Comment on above: Performed By: #### L ACDS, TROPI, PRCAL, MYCM #### [facility] [address] [place] [address] 42013 BUN/CRE Ratio NOT REPORTED Normal -20 [facility] Comment on above: Performed By: #### L ACDS, TROPI, PRCAL, MYCM #### [facility] [address] [place] [address] 69879 Staging: NOT REPORTED Normal [facility] Comment on above: Performed By: #### L ACDS, TROPI, PRCAL, MYCM #### [facility] [address] [place] [address] 08348 Cult, Bloodon 08-19-2018 Cult, Blood Specimen Description [...] Trimethoprim/Sulfa <=10 SUSCEPTIBLE Vancomycin 1 SUSCEPTIBLE Normal [facility] Comment on above: Performed By: #### L ACDS, TROPI, PRCAL, MYCM #### [facility] [place] [address] MRI CERVICAL SPINE W WO CONT RASTon [...] Bo Rodrigues MD 08/19/18 Final result Normal [facility] MRI LUMBAR SPINE W WO CONTRA STon [...] Bo Rodrigues MD 08/19/18 Final result Normal [facility] MRI THORACIC SPINE W WO CONT Arianna [...] Bo Rodrigues MD 08/19/18 Final result Normal [facility] Magnesiumon 08-19-2018 Magnesium mass conc 2.3 mg/dL Normal 1.6-2.6 [facility] Comment on above: Performed By: #### L ACDS, TROPI, PRCAL, MYCM #### [facility] [place] [address] Procalcitoninon 08-19-2018 Protein mass conc 0.57 ng/mL High <0.09 [facility] Comment on above: Result Comment: Suspected [...] entered into the Change in Procalcitonin Calculator ([email or web address]-hde-cwsjheuzqu.com) to determine the patient's Mortality Risk Prognosis Performed By: #### L ACDS, TROPI, PRCAL, MYCM #### [address] [address] CBC with Diffon 08-18-2018 Abs. Basophil <0.03 Normal 0.00-0.20 [facility] Comment on above: Performed By: #### L ACDS, TROPI, PRCAL, MYCM #### [address] 07034 Abs.Imm.Granulocyte 0.28 k/uL Normal 0.00-0.30 [facility] Comment on above: Performed By: #### L ACDS, TROPI, PRCAL, MYCM #### [address] 6[address] Abs.Neutrophil (Seg) 3.23 k/uL Normal 1.50-8.10 [facility] Comment on above: Performed By: #### L ACDS, TROPI, PRCAL, MYCM #### [address] 9[address]07 Basophils/100 WBC (Bld) 0 % Normal 0-2 [facility] Comment on above: Performed By: #### L ACDS, TROPI, PRCAL, MYCM #### [address] 79919 Eosinophils #/vol (Bld) 0.15 10*3/uL Normal 0.00-0.44 [facility] Comment on above: Performed By: #### L ACDS, TROPI, PRCAL, MYCM #### [facility] [address] [place] [address] 06862 Eosinophils/100 WBC (Bld) 3 % Normal 1-4 [facility] Comment on above: Performed By: #### L ACDS, TROPI, PRCAL, MYCM #### [facility] [address] [place] [address] 18622 Erythrocyte distribution width Ratio (RBC) 14.7 % High 11.8-14.4 [facility] Comment on above: Performed By: #### L ACDS, TROPI, PRCAL, MYCM #### [facility] [address] [place] [address] 52272 Hematocrit Volume Fraction (Bld) 32.7 % Low 36.3-47.1 [facility] Comment on above: Performed By: #### L ACDS, TROPI, PRCAL, MYCM #### [facility] [address] [place] [address] 71459 Hemoglobin mass conc (Bld) 10.1 g/dL Low 11.9-15.1 [facility] Comment on above: Performed By: #### L ACDS, TROPI, PRCAL, MYCM #### [facility] [address] [place] [address] 04518 Immature granulocytes #/vol (Bld) 5 % High 0 [facility] Comment on above: Performed By: #### L ACDS, TROPI, PRCAL, MYCM #### [address] [address] Lymphocytes #/vol (Bld) 1.58 10*3/uL Normal 1.10-3.70 [facility] Comment on above: Performed By: #### L ACDS, TROPI, PRCAL, MYCM #### [address] 62699 Lymphocytes/100 WBC (Bld) 28 % Normal 24-43 [facility] Comment on above: Performed By: #### L ACDS, TROPI, PRCAL, MYCM #### [facility] [address] [place] [address] 25849 MCH Entitic mass (RBC) 28.2 pg Normal 25.2-33.5 [facility] Comment on above: Performed By: #### L ACDS, TROPI, PRCAL, MYCM #### [facility] [address] [place] [address] 13072 MCHC mass conc (RBC) 30.9 g/dL Normal 28.4-34.8 [facility] Comment on above: Performed By: #### L ACDS, TROPI, PRCAL, MYCM #### [address] 40448 MCV Entitic volume (RBC) 91.3 fL Normal 82.6-102.9 [facility] Comment on above: Performed By: #### L ACDS, TROPI, PRCAL, MYCM #### [address] 8[address]76 Monocytes #/vol (Bld) 0.47 10*3/uL Normal 0.10-1.20 [facility] Comment on above: Performed By: #### L ACDS, TROPI, PRCAL, MYCM #### [address] 88565 Monocytes/100 WBC (Bld) 8 % Normal 3-12 [facility] Comment on above: Performed By: #### L ACDS, TROPI, PRCAL, MYCM #### [address] 77856 Neutrophil (Seg) 56 % Normal 36-65 [facility] Comment on above: Performed By: #### L ACDS, TROPI, PRCAL, MYCM #### [address] 9[address]99 NRBC Automated 0.0 per 100 WBC Normal 0.0 [facility] Comment on above: Performed By: #### L ACDS, TROPI, PRCAL, MYCM #### [facility] [address] [place] [address] 31272 Platelet mean volume Entitic volume (Bld) 11.4 fL Normal 8.1-13.5 [facility] Comment on above: Performed By: #### L ACDS, TROPI, PRCAL, MYCM #### [facility] [address] [place] [address] 39999 Platelets #/vol (Bld) 153 10*3/uL Normal 138-453 [facility] Comment on above: Performed By: #### L ACDS, TROPI, PRCAL, MYCM #### [address] 43698 RBC #/vol (Bld) 3.58 10*6/uL Low 3.95-5.11 [facility] Comment on above: Performed By: #### L ACDS, TROPI, PRCAL, MYCM #### [facility] [address] [place] [address] 19329 RBC morphology finding Nom (Bld) ANISOCYTOSIS PRESENT Normal [facility] Comment on above: Performed By: #### L ACDS, TROPI, PRCAL, MYCM #### [address] 9[address]61 WBC #/vol (Bld) 5.7 10*3/uL Normal 3.5-11.3 [facility] Comment on above: Performed By: #### L ACDS, TROPI, PRCAL, MYCM #### [address] [address]75 Auto Diff Performed NOT REPORTED Normal [facility] Comment on above: Performed By: #### L ACDS, TROPI, PRCAL, MYCM #### [facility] [address] [place] [address] 25186 Platelets #/vol (Bld) NOT REPORTED Normal [facility] Comment on above: Performed By: #### L ACDS, TROPI, PRCAL, MYCM #### [address] [address] WBC Morphology NOT REPORTED Normal [facility] Comment on above: Performed By: #### L ACDS, TROPI, PRCAL, MYCM #### [facility] [address] [place] [address] Comp Metabolic Pr/rfx MGon 1 10-18-2017 (cont.) Normal [facility] Comment on above: Result Comment: Aver age GFR for 30-39 years old: 107 mL/min/1.73sq m Chronic Kidney Disease: <60 mL/min/1.73sq m Kidney failure: <15 mL/min/1.73sq m eGFR calculated using average adult body mass. Additional eGFR calculator available at: http://www.[employer]/multiple_crcl_2011.htm Performed By: #### L ACDS, TROPI, PRCAL, MYCM #### [facility] [address] [place] [address] 76454 Albumin mass conc 2.7 g/dL Low 3.5-5.2 [facility] Comment on above: Performed By: #### L ACDS, TROPI, PRCAL, MYCM #### [facility] [address] [place] [address] 57611 Albumin/Globulin mass ratio 0.8 {ratio} Low 1.0-2.5 [facility] Comment on above: Performed By: #### L ACDS, TROPI, PRCAL, MYCM #### [facility] [address] [place] [address] 96763 Alkaline Phos 82 U/L Normal 35-104 [facility] Comment on above: Performed By: #### L ACDS, TROPI, PRCAL, MYCM #### [facility] [address] [place] [address] 13954 ALT enzyme act/vol 19 U/L Normal 5-33 [facility] Comment on above: Performed By: #### L ACDS, TROPI, PRCAL, MYCM #### [employer] [address] [place] [address] 91778 Anion gap molar conc 8 mmol/L Low 9-17 [facility] Comment on above: Performed By: #### L ACDS, TROPI, PRCAL, MYCM #### [facility] [address] [place] [address] 10333 AST enzyme act/vol 17 U/L Normal <32 [facility] Comment on above: Performed By: #### L ACDS, TROPI, PRCAL, MYCM #### [facility] [address] [place] [address] 50545 Bilirubin Ql (U) 0.24 mg/dL Low 0.3-1.2 [facility] Comment on above: Performed By: #### L ACDS, TROPI, PRCAL, MYCM #### [facility] [address] [place] [address] 05922 Calcium mass conc 8.2 mg/dL Low 8.6-10.4 [facility] Comment on above: Performed By: #### L ACDS, TROPI, PRCAL, MYCM #### [facility] [address] [place] [address] 85641 Chloride molar conc 103 mmol/L Normal 98-107 [facility] Comment on above: Performed By: #### L ACDS, TROPI, PRCAL, MYCM #### [facility] [address] [place] [address] 71980 CO2 molar conc 25 mmol/L Normal 20-31 [facility] Comment on above: Performed By: #### L ACDS, TROPI, PRCAL, MYCM #### [facility] [address] [place] [address] 83785 Creatinine mass conc 0.94 mg/dL High 0.50-0.90 [facility] Comment on above: Performed By: #### L ACDS, TROPI, PRCAL, MYCM #### [facility] [address] [place] [address] 05771 GFR, Amer >60 Normal >60 [facility] Comment on above: Performed By: #### L ACDS, TROPI, PRCAL, MYCM #### [facility] [address] [place] [address] 71469 GFR,non Amer >60 Normal >60 [facility] Comment on above: Performed By: #### L ACDS, TROPI, PRCAL, MYCM #### [facility] [address] [place] [address] 50178 Glucose mass conc 107 mg/dL High 70-99 [facility] Comment on above: Performed By: #### L ACDS, TROPI, PRCAL, MYCM #### [facility] [address] [place] [address] 78781 Potassium molar conc 4.1 mmol/L Normal 3.7-5.3 [facility] Comment on above: Performed By: #### L ACDS, TROPI, PRCAL, MYCM #### [facility] [address] [place] [address] 41374 Protein mass conc 6.2 g/dL Low 6.4-8.3 [facility] Comment on above: Performed By: #### L ACDS, TROPI, PRCAL, MYCM #### [facility] [address] [place] [address] 46429 Sodium molar conc 136 mmol/L Normal 135-144 [facility] Comment on above: Performed By: #### L ACDS, TROPI, PRCAL, MYCM #### [facility] [address] [place] [address] 64814 Urea nitrogen mass conc 14 mg/dL Normal 6-20 [facility] Comment on above: Performed By: #### L ACDS, TROPI, PRCAL, MYCM #### [employer] [facility] [address] [place] [address] 26022 BUN/CRE Ratio NOT REPORTED Normal 06-24 [facility] Comment on above: Performed By: #### L ACDS, TROPI, PRCAL, MYCM #### [facility] [address] [place] [address] 82946 Staging: NOT REPORTED Normal [facility] Comment on above: Performed By: #### L ACDS, TROPI, PRCAL, MYCM #### [facility] [address] [place] [address] 13903 Magnesiumon 08-18-2018 Magnesium mass conc 2.3 mg/dL Normal 1.6-2.6 [facility] Comment on above: Performed By: #### L ACDS, TROPI, PRCAL, MYCM #### [facility] [employer] [address] [place] [address] 67782 Vancomycin Troughon 08-18-20 18 Vancomycin Trough 14.7 ug/mL Normal 10.0-20.0 [facility] Comment on above: Result Comment: High er trough serum vancomycin concentrations of 15-20 ug/mL are recommended for complicated infections such as bacteremia, endocarditis, osteomyelitis, meningitis, and hospital acquired pneumonia. Performed By: #### L ACDS, TROPI, PRCAL, MYCM #### [facility] [address] [place] [address] [phone] Date last dose, NOT REPORTED Normal [facility] Comment on above: Performed By: #### L ACDS, TROPI, PRCAL, MYCM #### [facility] [address] [place] [address] 09890 Dose amount, NOT REPORTED Normal [facility] Comment on above: Performed By: #### L ACDS, TROPI, PRCAL, MYCM #### [employer] [address] [place] [address] [phone] Time last dose, NOT REPORTED Normal [facility] Comment on above: Performed By: #### L ACDS, TROPI, PRCAL, MYCM #### [facility] [employer] [address] [place] [address] 03170 C-Reactive Proteinon 018 CRP mass conc 188.1 mg/L High 0.0-5.0 [facility] Comment on above: Performed By: #### L ACDS, TROPI, PRCAL, MYCM #### [facility] [employer] [address] [place] [address] CBC with Diffon 08-17-2018 Abs. Basophil 0.00 k/uL Normal 0.0-0.2 [facility] Comment on above: Performed By: #### L ACDS, TROPI, PRCAL, MYCM #### [facility] [employer] [address] [place] [address] 61532 Abs.Imm.Granulocyte 0.13 k/uL Normal 0.00-0.30 [facility] Comment on above: Performed By: #### L ACDS, TROPI, PRCAL, MYCM #### [facility] [employer] [address] [place] [address] 99509 Abs.Neutrophil (Seg) 4.35 k/uL Normal 1.8-7.7 [facility] Comment on above: Performed By: #### L ACDS, TROPI, PRCAL, MYCM #### [facility] [employer] [address] [place] [address] 75175 Basophils/100 WBC (Bld) 0 % Normal 0-2 [facility] Comment on above: Performed By: #### L ACDS, TROPI, PRCAL, MYCM #### [facility] [employer] [address] [place] [address] 99980 Eosinophils #/vol (Bld) 0.06 10*3/uL Normal 0.0-0.4 [facility] Comment on above: Performed By: #### L ACDS, TROPI, PRCAL, MYCM #### [address] [address] Eosinophils/100 WBC (Bld) 1 % Normal 1-4 [facility] Comment on above: Performed By: #### L ACDS, TROPI, PRCAL, MYCM #### [address] [address] Immature granulocytes #/vol (Bld) 2 % High 0 [facility] Comment on above: Performed By: #### L ACDS, TROPI, PRCAL, MYCM #### [address] 9[address] Lymphocytes #/vol (Bld) 1.32 10*3/uL Normal 1.0-4.8 [facility] Comment on above: Performed By: #### L ACDS, TROPI, PRCAL, MYCM #### [address] 07302 Lymphocytes/100 WBC (Bld) 21 % Low 24-44 [facility] Comment on above: Performed By: #### L ACDS, TROPI, PRCAL, MYCM #### [address] [address] Monocytes #/vol (Bld) 0.44 10*3/uL Normal 0.1-0.8 [facility] Comment on above: Performed By: #### L ACDS, TROPI, PRCAL, MYCM #### [address] 26654 Monocytes/100 WBC (Bld) 7 % Normal 1-7 [facility] Comment on above: Performed By: #### L ACDS, TROPI, PRCAL, MYCM #### [address] 9[address] Morphology Interp Rehan (Bld) ANISOCYTOSIS PRESENT Normal [facility] Comment on above: Result Comment: INCR EASED BANDS PRESENT 1+ TEARDROPS Performed By: #### L ACDS, TROPI, PRCAL, MYCM #### [facility] [employer] [address] [place] [address] 23412 Neutrophil (Seg) 69 % High 36-66 [facility] Comment on above: Performed By: #### L ACDS, TROPI, PRCAL, MYCM #### [facility] [employer] [address] [place] [address] 22287 Erythrocyte distribution width Ratio (RBC) 14.8 % High 11.8-14.4 [facility] Comment on above: Performed By: #### L ACDS, TROPI, PRCAL, MYCM #### [facility] [employer] [address] [place] [address] 38532 Hematocrit Volume Fraction (Bld) 33.3 % Low 36.3-47.1 [facility] Comment on above: Performed By: #### L ACDS, TROPI, PRCAL, MYCM #### [facility] [employer] [address] [place] [address] 60401 Hemoglobin mass conc (Bld) 10.2 g/dL Low 11.9-15.1 [facility] Comment on above: Performed By: #### L ACDS, TROPI, PRCAL, MYCM #### [facility] [employer] [address] [place] [address] 95370 MCH Entitic mass (RBC) 28.3 pg Normal 25.2-33.5 [facility] Comment on above: Performed By: #### L ACDS, TROPI, PRCAL, MYCM #### [facility] [employer] [address] [place] [address] 89187 MCHC mass conc (RBC) 30.6 g/dL Normal 28.4-34.8 [facility] Comment on above: Performed By: #### L ACDS, TROPI, PRCAL, MYCM #### [address] 56851 MCV Entitic volume (RBC) 92.2 fL Normal 82.6-102.9 [facility] Comment on above: Performed By: #### L ACDS, TROPI, PRCAL, MYCM #### [address] 93762 NRBC Automated 0.0 per 100 WBC Normal 0.0 [facility] Comment on above: Performed By: #### L ACDS, TROPI, PRCAL, MYCM #### [address] 72721 Platelet mean volume Entitic volume (Bld) 11.5 fL Normal 8.1-13.5 [facility] Comment on above: Performed By: #### L ACDS, TROPI, PRCAL, MYCM #### [address] 89482 Platelets #/vol (Bld) 149 10*3/uL Normal 138-453 [facility] Comment on above: Performed By: #### L ACDS, TROPI, PRCAL, MYCM #### [address] 8[address] RBC #/vol (Bld) 3.61 10*6/uL Low 3.95-5.11 [facility] Comment on above: Performed By: #### L ACDS, TROPI, PRCAL, MYCM #### [address] 35682 WBC #/vol (Bld) 6.3 10*3/uL Normal 3.5-11.3 [facility] Comment on above: Performed By: #### L ACDS, TROPI, PRCAL, MYCM #### [address] 05192 Auto Diff Performed NOT REPORTED Normal [facility] Comment on above: Performed By: #### L ACDS, TROPI, PRCAL, MYCM #### [facility] [employer] [address] [place] [address] 18493 Platelets #/vol (Bld) NOT REPORTED Normal [facility] Comment on above: Performed By: #### L ACDS, TROPI, PRCAL, MYCM #### [address] 46892 RBC morphology finding Nom (Bld) NOT REPORTED Normal [facility] Comment on above: Performed By: #### L ACDS, TROPI, PRCAL, MYCM #### [address] 83107 WBC Morphology NOT REPORTED Normal [facility] Comment on above: Performed By: #### L ACDS, TROPI, PRCAL, MYCM #### [address] [address] Comp Metabolic Pr/rfx MGon 1 10-17-2017 (cont.) Normal [facility] Comment on above: Result Comment: Aver age GFR for 30-39 years old: 107 mL/min/1.73sq m Chronic Kidney Disease: <60 mL/min/1.73sq m Kidney failure: <15 mL/min/1.73sq m eGFR calculated using average adult body mass. Additional eGFR calculator available at: http://www.[employer].com/multiple_crcl_2012.htm Performed By: #### L ACDS, TROPI, PRCAL, MYCM #### [address] 99461 Albumin mass conc 2.4 g/dL Low 3.5-5.2 [facility] Comment on above: Performed By: #### L ACDS, TROPI, PRCAL, MYCM #### [address] 55268 Albumin/Globulin mass ratio 0.7 {ratio} Low 1.0-2.5 [facility] Comment on above: Performed By: #### L ACDS, TROPI, PRCAL, MYCM #### [facility] [employer] [address] [place] [address] 03197 Alkaline Phos 76 U/L Normal 35-104 [facility] Comment on above: Performed By: #### L ACDS, TROPI, PRCAL, MYCM #### [facility] [employer] [address] [place] [address] 09764 ALT enzyme act/vol 25 U/L Normal 5-33 [facility] Comment on above: Performed By: #### L ACDS, TROPI, PRCAL, MYCM #### [facility] [employer] [address] [place] [address] 80699 Anion gap molar conc 8 mmol/L Low 9-17 [facility] Comment on above: Performed By: #### L ACDS, TROPI, PRCAL, MYCM #### [facility] [employer] [address] [place] [address] 14072 AST enzyme act/vol 26 U/L Normal <32 [facility] Comment on above: Performed By: #### L ACDS, TROPI, PRCAL, MYCM #### [facility] [employer] [address] [place] [address] 10949 Bilirubin Ql (U) 0.34 mg/dL Normal 0.3-1.2 [facility] Comment on above: Performed By: #### L ACDS, TROPI, PRCAL, MYCM #### [facility] [employer] [address] [place] [address] 76875 Calcium mass conc 7.8 mg/dL Low 8.6-10.4 [facility] Comment on above: Performed By: #### L ACDS, TROPI, PRCAL, MYCM #### [facility] [employer] [address] [place] [address] 21285 Chloride molar conc 99 mmol/L Normal 98-107 [facility] Comment on above: Performed By: #### L ACDS, TROPI, PRCAL, MYCM #### [facility] [employer] [address] [place] [address] 63127 CO2 molar conc 23 mmol/L Normal 20-31 [facility] Comment on above: Performed By: #### L ACDS, TROPI, PRCAL, MYCM #### [facility] [employer] [address] [place] [address] 22900 Creatinine mass conc 1.04 mg/dL High 0.50-0.90 [facility] Comment on above: Performed By: #### L ACDS, TROPI, PRCAL, MYCM #### [facility] [employer] [address] [place] [address] 10561 GFR, Amer >60 Normal >60 [facility] Comment on above: Performed By: #### L ACDS, TROPI, PRCAL, MYCM #### [facility] [address] [place] [address] 76156 GFR,non Amer 59 mL/min Low >60 [facility] Comment on above: Performed By: #### L ACDS, TROPI, PRCAL, MYCM #### [address] 02753 Glucose mass conc 109 mg/dL High 70-99 [facility] Comment on above: Performed By: #### L ACDS, TROPI, PRCAL, MYCM #### [facility] [employer] [address] [place] [address] [phone] Potassium molar conc 3.8 mmol/L Normal 3.7-5.3 [facility] Comment on above: Performed By: #### L ACDS, TROPI, PRCAL, MYCM #### [facility] [employer] [address] [place] [address] 03085 Protein mass conc 5.8 g/dL Low 6.4-8.3 [facility] Comment on above: Performed By: #### L ACDS, TROPI, PRCAL, MYCM #### [facility] [address] [place] [address] 33772 Sodium molar conc 130 mmol/L Low 135-144 [facility] Comment on above: Performed By: #### L ACDS, TROPI, PRCAL, MYCM #### [facility] [employer] [address] [place] [address] 67897 Urea nitrogen mass conc 15 mg/dL Normal 03-24 [facility] Comment on above: Performed By: #### L ACDS, TROPI, PRCAL, MYCM #### [facility] [employer] [address] [place] [address] 19156 BUN/CRE Ratio NOT REPORTED Normal 06-24 [facility] Comment on above: Performed By: #### L ACDS, TROPI, PRCAL, MYCM #### [facility] [employer] [address] [place] [address] 28977 Staging: NOT REPORTED Normal [facility] Comment on above: Performed By: #### L ACDS, TROPI, PRCAL, MYCM #### [facility] [employer] [address] [place] [address] 24522 Magnesiumon 08-17-2018 Magnesium mass conc 2.2 mg/dL Normal 1.6-2.6 [facility] Comment on above: Performed By: #### L ACDS, TROPI, PRCAL, MYCM #### [facility] [employer] [address] [place] [address] 75887 Procalcitoninon 08-17-2018 Protein mass conc 1.48 ng/mL High <0.09 [facility] Comment on above: Result Comment: Suspected [...] entered into the Change in Procalcitonin Calculator ([email or web address]-[email or web address]) to determine the patient's Mortality Risk Prognosis Performed By: #### L ACDS, TROPI, PRCAL, MYCM #### [facility] [address] [place] [address] 52696 Sedimentation Rateon 018 Sedimentation Rate 97 mm High 0-20 [facility] Comment on above: Performed By: #### L ACDS, TROPI, PRCAL, MYCM #### [facility] [address] [place] [address] 63834 CBC with Diffon 08-16-2018 Abs. Basophil 0.00 k/uL Normal 0.00-0.20 [facility] Comment on above: Performed By: #### L ACDS, TROPI, PRCAL, MYCM #### [employer] [address] [place] [address] 85526 Abs.Imm.Granulocyte 0.11 k/uL Normal 0.00-0.30 [facility] Comment on above: Performed By: #### L ACDS, TROPI, PRCAL, MYCM #### [employer] [address] [place] [address] 47868 Abs.Neutrophil (Seg) 4.60 k/uL Normal 1.50-8.10 [facility] Comment on above: Performed By: #### L ACDS, TROPI, PRCAL, MYCM #### [address] 04240 Basophils/100 WBC (Bld) 0 % Normal 0-2 [facility] Comment on above: Performed By: #### L ACDS, TROPI, PRCAL, MYCM #### [address] 7[address] Eosinophils #/vol (Bld) 0.00 10*3/uL Normal 0.00-0.44 [facility] Comment on above: Performed By: #### L ACDS, TROPI, PRCAL, MYCM #### [address] 18279 Eosinophils/100 WBC (Bld) 0 % Low 1-4 [facility] Comment on above: Performed By: #### L ACDS, TROPI, PRCAL, MYCM #### [address] 71385 Immature granulocytes #/vol (Bld) 2 % High 0 [facility] Comment on above: Performed By: #### L ACDS, TROPI, PRCAL, MYCM #### [address] 03231 Lymphocytes #/vol (Bld) 0.67 10*3/uL Low 1.10-3.70 [facility] Comment on above: Performed By: #### L ACDS, TROPI, PRCAL, MYCM #### [address] 54061 Lymphocytes/100 WBC (Bld) 12 % Low 24-43 [facility] Comment on above: Performed By: #### L ACDS, TROPI, PRCAL, MYCM #### [address] [address]157 Monocytes #/vol (Bld) 0.22 10*3/uL Normal 0.10-1.20 [facility] Comment on above: Performed By: #### L ACDS, TROPI, PRCAL, MYCM #### [address] 12545 Monocytes/100 WBC (Bld) 4 % Normal 3-12 [facility] Comment on above: Performed By: #### L ACDS, TROPI, PRCAL, MYCM #### [facility] [address] [place] [address] 33072 Morphology Interp Rehan (Bld) ANISOCYTOSIS PRESENT Normal [facility] Comment on above: Result Comment: INCR EASED BANDS PRESENT 1+ TEARDROPS Performed By: #### L ACDS, TROPI, PRCAL, MYCM #### [facility] [address] [place] [address] 10451 Neutrophil (Seg) 82 % High 36-65 [facility] Comment on above: Performed By: #### L ACDS, TROPI, PRCAL, MYCM #### [facility] [employer] [address] [place] [address] 05538 Erythrocyte distribution width Ratio (RBC) 15.1 % High 11.8-14.4 [facility] Comment on above: Performed By: #### L ACDS, TROPI, PRCAL, MYCM #### [facility] [employer] [address] [place] [address] 69346 Hematocrit Volume Fraction (Bld) 34.1 % Low 36.3-47.1 [facility] Comment on above: Performed By: #### L ACDS, TROPI, PRCAL, MYCM #### [facility] [employer] [address] [place] [address] 63873 Hemoglobin mass conc (Bld) 10.0 g/dL Low 11.9-15.1 [facility] Comment on above: Performed By: #### L ACDS, TROPI, PRCAL, MYCM #### [facility] [employer] [address] [place] [address] 03415 MCH Entitic mass (RBC) 28.7 pg Normal 25.2-33.5 [facility] Comment on above: Performed By: #### L ACDS, TROPI, PRCAL, MYCM #### [facility] [address] [place] [address] 51856 MCHC mass conc (RBC) 29.3 g/dL Normal 28.4-34.8 [facility] Comment on above: Performed By: #### L ACDS, TROPI, PRCAL, MYCM #### [facility] [address] [place] [address] 13091 MCV Entitic volume (RBC) 98.0 fL Normal 82.6-102.9 [facility] Comment on above: Performed By: #### L ACDS, TROPI, PRCAL, MYCM #### [facility] [address] [place] [address] 80617 NRBC Automated 0.0 per 100 WBC Normal 0.0 [facility] Comment on above: Performed By: #### L ACDS, TROPI, PRCAL, MYCM #### [facility] [address] [place] [address] 58584 Platelet mean volume Entitic volume (Bld) 11.1 fL Normal 8.1-13.5 [facility] Comment on above: Performed By: #### L ACDS, TROPI, PRCAL, MYCM #### [facility] [address] [place] [address] 37690 Platelets #/vol (Bld) 119 10*3/uL Low 138-453 [facility] Comment on above: Performed By: #### L ACDS, TROPI, PRCAL, MYCM #### [facility] [address] [place] [address] 44451 RBC #/vol (Bld) 3.48 10*6/uL Low 3.95-5.11 [facility] Comment on above: Performed By: #### L ACDS, TROPI, PRCAL, MYCM #### [address] 09331 WBC #/vol (Bld) 5.6 10*3/uL Normal 3.5-11.3 [facility] Comment on above: Performed By: #### L ACDS, TROPI, PRCAL, MYCM #### [address] 98513 Auto Diff Performed NOT REPORTED Normal [facility] Comment on above: Performed By: #### L ACDS, TROPI, PRCAL, MYCM #### [facility] [address] [place] [address] 17611 Platelets #/vol (Bld) NOT REPORTED Normal [facility] Comment on above: Performed By: #### L ACDS, TROPI, PRCAL, MYCM #### [facility] [employer] [address] [place] [address] 59969 RBC morphology finding Nom (Bld) NOT REPORTED Normal [facility] Comment on above: Performed By: #### L ACDS, TROPI, PRCAL, MYCM #### [address] 32300 WBC Morphology NOT REPORTED Normal [facility] Comment on above: Performed By: #### L ACDS, TROPI, PRCAL, MYCM #### [facility] [address] [place] [address] HEAD WO CONTRASTon 2017 CT HEAD [...] Erica Angeles MD 08/16/18 Final result Normal [facility] Calcium, Ionicon 08-16-2018 Calcium mass conc 0.99 mmol/L Low 1.13-1.33 [facility] Comment on above: Performed By: #### L ACDS, TROPI, PRCAL, MYCM #### [facility] [address] [place] [address] [phone] Comp Metabolic Pr/rfx MGon 1 10-16-2017 (cont.) Normal [facility] Comment on above: Result Comment: Aver age GFR for 30-39 years old: 107 mL/min/1.73sq m Chronic Kidney Disease: <60 mL/min/1.73sq m Kidney failure: <15 mL/min/1.73sq m eGFR calculated using average adult body mass. Additional eGFR calculator available at: http://www.[employer]/multiple_crcl_2012.htm Performed By: #### P T, CMPX, MG, CDP #### [facility] [address] [place] [address] Albumin mass conc 2.3 g/dL Low 3.5-5.2 [facility] Comment on above: Performed By: #### P T, CMPX, MG, CDP #### [facility] [address] [place] [address] Albumin/Globulin mass ratio 0.7 {ratio} Low 1.0-2.5 [facility] Comment on above: Performed By: #### P T, CMPX, MG, CDP #### [address] [address]16 Alkaline Phos 67 U/L Normal 35-104 [facility] Comment on above: Performed By: #### P T, CMPX, MG, CDP #### [address] 92529 ALT enzyme act/vol 33 U/L Normal 5-33 [facility] Comment on above: Performed By: #### P T, CMPX, MG, CDP #### [address] 60341 Anion gap molar conc 11 mmol/L Normal 9-17 [facility] Comment on above: Performed By: #### P T, CMPX, MG, CDP #### [facility] [address] [place] [address] 24903 AST enzyme act/vol 41 U/L High <32 [facility] Comment on above: Performed By: #### P T, CMPX, MG, CDP #### [facility] [address] [place] [address] 93816 Bilirubin Ql (U) 0.40 mg/dL Normal 0.3-1.2 [facility] Comment on above: Performed By: #### P T, CMPX, MG, CDP #### [facility] [address] [place] [address] 44822 Calcium mass conc 7.3 mg/dL Low 8.6-10.4 [facility] Comment on above: Performed By: #### P T, CMPX, MG, CDP #### [facility] [address] [place] [address] 41456 Chloride molar conc 105 mmol/L Normal 98-107 [facility] Comment on above: Performed By: #### P T, CMPX, MG, CDP #### [address] 28196 CO2 molar conc 18 mmol/L Low 20-31 [facility] Comment on above: Performed By: #### P T, CMPX, MG, CDP #### [facility] [address] [place] [address] 14688 Creatinine mass conc 1.09 mg/dL High 0.50-0.90 [facility] Comment on above: Performed By: #### P T, CMPX, MG, CDP #### [facility] [address] [place] [address] 41067 GFR, Amer >60 Normal >60 [facility] Comment on above: Performed By: #### P T, CMPX, MG, CDP #### [facility] [address] [place] [address] 50468 GFR,non Amer 56 mL/min Low >60 [facility] Comment on above: Performed By: #### P T, CMPX, MG, CDP #### [address] 50907 Glucose mass conc 128 mg/dL High 70-99 [facility] Comment on above: Performed By: #### P T, CMPX, MG, CDP #### [facility] [address] [place] [address] 46380 Potassium molar conc 3.6 mmol/L Low 3.7-5.3 [facility] Comment on above: Performed By: #### P T, CMPX, MG, CDP #### [facility] [address] [place] [address] 09184 Protein mass conc 5.5 g/dL Low 6.4-8.3 [facility] Comment on above: Performed By: #### P T, CMPX, MG, CDP #### [facility] [address] [place] [address] 06131 Sodium molar conc 134 mmol/L Low 135-144 [facility] Comment on above: Performed By: #### P T, CMPX, MG, CDP #### [employer] [address] [place] [address] 53193 Urea nitrogen mass conc 17 mg/dL Normal 6-20 [facility] Comment on above: Performed By: #### P T, CMPX, MG, CDP #### [facility] [address] [place] [address] 20281 BUN/CRE Ratio NOT REPORTED Normal - [facility] Comment on above: Performed By: #### P T, CMPX, MG, CDP #### [facility] [address] [place] [address] 66365 Staging: NOT REPORTED Normal [facility] Comment on above: Performed By: #### P T, CMPX, MG, CDP #### [facility] [address] [place] [address] 41312 Lactic Acid,Whole Blon 08-16 Lactic Acid,Whole Bl 1.2 mmol/L Normal 0.7-2.1 [facility] Comment on above: Performed By: #### L ACDS, TROPI, PRCAL, MYCM #### [facility] [address] [place] [address] 86748 Lactic Acid,Whole Bl 1.2 mmol/L Normal 0.7-2.1 [facility] Comment on above: Performed By: #### L ACWB #### [facility] [employer] [address] [place] [id number] Magnesiumon 08-16-2018 Magnesium mass conc 2.0 mg/dL Normal 1.6-2.6 [facility] Comment on above: Performed By: #### L ACDS, TROPI, PRCAL, MYCM #### [facility] [address] [place] [address] [id number] Mycoplasma Ab,IgMon 08-16-20 18 Mycoplasma Ab,IgM 0.22 Normal <0.91 [facility] Comment on above: Result Comment: Reference Range: <=0.90 Negative 0.91-1.09 Equivocal >=1.10 Positive Performed By: #### L ACDS, TROPI, PRCAL, MYCM #### [address] [id number] PTon 08-16-2018 INR Coag RelTime (PPP) 1.0 {INR} Normal [facility] Comment on above: Result Comment: Therapeutic Range: Moderate Anticoagulant Intensity: INR = 2.0-3.0 High Anticoagulant Intensity: INR = 2.5-3.5 Performed By: #### P T, CMPX, MG, CDP #### [address] [id number] Prothrombin time (PT) Coag time (PPP) 11.0 s Normal 9.0-12.0 [facility] Comment on above: Performed By: #### P T, CMPX, MG, CDP #### [address] [id number] Troponinon 08-16-2018 Troponin I.cardiac mass conc Normal [facility] Comment on above: Result Comment: Refe rence [...] diagnosis. Performed By: #### T ROPI #### [address] [id number] Troponin I.cardiac mass conc ng/mL Normal <0.03 [facility] Comment on above: Result Comment: Trop onin T results cannot be compared to Troponin-I results. Performed By: #### T ROPI #### [address] [id number] XR CHEST (2 VW)on 08-16-2018 XR CHEST [...] Noe Mitchell MD 08/16/18 Final result Normal [facility] Lactate, Sepsison 08-15-2018 Lactic Acid,Sep Wbld 3.5 mmol/L High 0.5-1.9 [facility] Comment on above: Performed By: #### L ACDS, TROPI, PRCAL, MYCM #### [address] [phone] Lactic Acid, Sepsis NOT REPORTED Normal 0.5-1.[address] [facility] Comment on above: Performed By: #### L ACDS, TROPI, PRCAL, MYCM #### [address] [id number] Legionella Ag, Uron 08-15-20 18 Legionella Ag, Ur Specimen Description .CLEAN CATCH [...] this test. Report Status FINAL 08/15/2018 Normal [facility] Comment on above: Performed By: #### U LAG #### [address] [id number] Procalcitoninon 08-15-2018 Protein mass conc 3.39 ng/mL High <0.09 [facility] Comment on above: Result Comment: Suspected [...] entered into the Change in Procalcitonin Calculator (www.gsdioc-zsc-jcvttrgmlv.Auto Secure) to determine the patient's Mortality Risk Prognosis Performed By: #### L ACDS, TROPI, PRCAL, MYCM #### [employer] [address] [place] [id number] Strep pneum Ag,CSF/Uron 08-05 Strep pneum Ag,CSF/Ur Specimen Descripti on .CLEAN CATCH URINE Special Requests NOT REPORTED Direct Exam NEGATIVE: Strep pneumoniae antigen not detected Report Status FINAL 08/15/2018 Normal [facility] Comment on above: Performed By: #### S PAG #### [employer] [address] [place] [id number] Troponinon 08-15-2018 Troponin I.cardiac mass conc ng/mL Normal <0.03 [facility] Comment on above: Result Comment: Trop onin T results cannot be compared to Troponin-I results. Performed By: #### L ACDS, TROPI, PRCAL, MYCM #### [employer] [address] [place] [id number] Troponin I.cardiac mass conc Normal [facility] Comment on above: Result Comment: Refe rence [...] #### L ACDS, TROPI, PRCAL, MYCM #### [facility] [facility] [place] [address] Urinalysison 11-18-2017 Bilirubin, Urine Negative Invalid Interpretation Code NEG;NEGATIVE [facility] Blood, Urine Moderate Abnormal NEG;NEGATIVE [facility] Interpretation and review of laboratory results Abnormal Invalid Interpretation Code [facility] Nitrite, Urine Negative Invalid Interpretation Code NEG;NEGATIVE [facility] Protein, Urine Negative Invalid Interpretation Code NEG;NEGATIVE mg/dL [facility] RBCs, Urine 1 /HPF Invalid Interpretation Code 0 - 5 [facility] Squamous Epithelial < 1 Invalid Interpretation Code 0 - 40 /HPF [facility] Urine, bacteria in sediment Rare Invalid Interpretation Code NS;RARE /HPF [facility] Urine, character Hazy Invalid Interpretation Code [facility] Urine, color Yellow Invalid Interpretation Code [facility] Urine, glucose presence Negative Invalid Interpretation Code NEG;NEGATIVE mg/dL [facility] Urine, ketones presence Negative Invalid Interpretation Code NEG;NEGATIVE mg/dL [facility] Urine, leukocyte esterase presence Small Abnormal Negative [facility] Urine, pH 6.0 [pH] Invalid Interpretation Code 4.5 - 8.0 [facility] Urine, specific gravity 1.014 1 Invalid Interpretation Code 1.003 - 1.029 [facility] Urobilinogen, Urine < 2.0 Invalid Interpretation Code <2 mg/dL [facility] WBCs, Urine 6 /HPF High 0 - 5 [facility] CBC and Differentialon 11-17 Basophils 0.7 % Invalid Interpretation Code [facility] Basophils 0.1 K/mcL Invalid Interpretation Code 0 - 0.2 [facility] Eosinophils 0.2 K/mcL Invalid Interpretation Code 0 - 0.5 [facility] Erythrocytes (RBC) 3.97 M/mcL Invalid Interpretation Code 3.7 - 5.0 [facility] Hematocrit (HCT) 35.7 % Invalid Interpretation Code 34.4 - 44.8 % [facility] Hemoglobin (HGB) 12.2 g/dL Invalid Interpretation Code 11.6 - 15.4 g/dL [facility] Interpretation and review of laboratory results Abnormal Invalid Interpretation Code [facility] Lymphocytes 2.1 K/mcL Invalid Interpretation Code 1.0 - 3.7 [facility] MCH 30.6 pg Invalid Interpretation Code 27.9 - 33.9 pg [facility] MCHC 34.0 g/dL Invalid Interpretation Code 33.1 - 35.1 g/dL [facility] MCV 89.8 fL Invalid Interpretation Code 82.6 - 98.9 [facility] Monocytes 0.6 K/mcL Invalid Interpretation Code 0.1 - 0.6 [facility] Neutrophils 6.6 K/mcL Invalid Interpretation Code 1.2 - 6.9 [facility] Platelet mean volume (PMV) 8.6 fL Invalid Interpretation Code 7.0 - 10.6 [facility] Platelets 196 K/mcL Invalid Interpretation Code 162 - 402 [facility] RDW-CA 15.0 % High 10 - 14.4 % [facility] Segmented Neut 69.6 % Invalid Interpretation Code [facility] T8 suppressor/100 cells 1.8 10*3/uL Invalid Interpretation Code [facility] T8 suppressor/100 cells 21.8 10*3/uL Invalid Interpretation Code [facility] T8 suppressor/100 cells 6.1 10*3/uL Invalid Interpretation Code [facility] WBC (Leukocytes) 9.5 K/mcL Invalid Interpretation Code 3.4 - 10.6 [facility] Comprehensive Metabolic Pane lyn 11-17-2017 Alanine aminotransferase (ALT) 18 U/L Invalid Interpretation Code 14 - 65 U/L [facility] Albumin 3.1 g/dL Low 3.2 - 5.2 g/dL [facility] Alkaline phosphatase (ALP) 78 U/L Invalid Interpretation Code 40 - 140 U/L [facility] Aspartate aminotransferase (AST) 7 U/L Invalid Interpretation Code 0 - 45 U/L [facility] Calcium 8.6 mg/dL Invalid Interpretation Code 8.4 - 10.2 mg/dL [facility] Chloride 106 mmol/L Invalid Interpretation Code 98 - 108 mmol/L [facility] CO2 27 mmol/L Invalid Interpretation Code 21 - 32 mmol/L [facility] Creatinine 1.13 mg/dL High 0.4 - 1.1 mg/dL [facility] eGFR (black) mL/min/{1.73_m2} Invalid Interpretation Code ml/min/1.73sq .m [facility] eGFR (non-black) 54 mL/min/{1.73_m2} Low >60 [facility] Glucose 113 mg/dL High 70 - 99 mg/dL [facility] Interpretation and review of laboratory results Abnormal Invalid Interpretation Code [facility] Potassium 3.7 mmol/L Invalid Interpretation Code 3.5 - 5.1 mmol/L [facility] Protein 6.8 g/dL Invalid Interpretation Code 6 - 8 g/dL [facility] Sodium 140 mmol/L Invalid Interpretation Code 135 - 145 mmol/L [facility] Urea nitrogen 17 mg/dL Invalid Interpretation Code 8 - 25 mg/dL [facility] Urine, bilirubin presence 0.4 mg/dL Invalid Interpretation Code 0.3 - 1.2 mg/dL [facility] Lipaseon 11-17-2017 Lipase 167 U/L Invalid Interpretation Code 73 - 393 U/L [facility] Vital Signs Date Time Vital Sign Value Performing Clinician Yovani mclaughlin 03-03-2023 14:44-0400 Body temperature 98.49 [degF] MASSIMO Shook DPM Work Phone: [facility] 03-03-2023 14:44-0400 Diastolic blood pressure 87 mm[Hg] MASSIMO Shook DPM Work Phone: [facility] 03-03-2023 14:44-0400 Heart rate 94 /min MASSIMO Shook DPM Work Phone: [facility] 03-03-2023 14:44-0400 Systolic blood pressure 139 mm[Hg] MASSIMO Shook DPM Work Phone: [facility] 07-02-2022 09:36-0400 Body height 157.5 cm [facility] Work Phone: [facility] 07-02-2022 09:36-0400 Body mass index (BMI) [Ratio] 38.67 kg/m2 [facility] Work Phone: [facility] 07-02-2022 09:36-0400 Body weight 95.89 kg [facility] Work Phone: [facility] 09-16-2020 20:53-0500 BMI (Body Mass Index) 39.32 kg/m2 [place] 09-16-2020 20:53-0500 Body Temperature 99.5 [degF] [place] 09-16-2020 20:53-0500 Body weight 97.52 kg [place] 09-16-2020 20:53-0500 BP Diastolic 109 mm[Hg] [place] 09-16-2020 20:53-0500 BP Systolic 189 mm[Hg] [place] 09-16-2020 20:53-0500 Height 157.5 cm [place] 09-16-2020 20:53-0500 Pulse (Heart Rate) 99 /min [facility] [place] 09-16-2020 20:53-0500 Pulse Oximetry 96 % [place] 09-16-2020 20:53-0500 Respiratory Rate 18 /min [place] Encounters Encounter Date Encounter Type Care Provider Facility Start: 02-10-2024 End: 02-11-2024 ambulatory [facility]IPE BACK [facility] Start: 01-29-2024 End: 01-30-2024 ambulatory [facility] Start: 10-29-2023 End: 10-29-2023 ambulatory TIFFANIE CASAS Not Available Start: 08-23-2023 End: 08-26-2023 ambulatory [facility] Start: 08-20-2023 End: 08-20-2023 ambulatory TIFFANIE CASAS Not Available Start: 06-15-2023 End: 06-18-2023 ambulatory [facility] BACK [facility] Start: 06-15-2023 End: 06-15-2023 Subsequent hospital visit by physician Felipe Adam MD Work Phone: [facility] Comment on above: Mixed hyperlipidemia Start: 05-17-2023 End: 05-18-2023 [facility]ulatory [facility] Start: 04-03-2023 ambulatory FELIPE BACK [facility] Start: 03-03-2023 End: 03-07-2023 ambulatory ROBBIN SHOOK [facility] Start: 03-03-2023 End: 03-03-2023 Office outpatient new 45 minutes MASSIMO Shook DP Work Phone: [facility] Comment on above: Charcot arthropathy of midfoot (Primary Dx); Gastrocnemius equinus, unspecified laterality; Foot pain, left Start: 02-11-2023 End: 02-12-2023 ambulatory [facility] Facility:H1 Start: 02-05-2023 End: 02-05-2023 Subsequent hospital visit by physician Felipe Adam MD Work Phone: [facility] Comment on above: Pelvic pressure in f emale Start: 02-04-2023 End: 02-05-2023 ambulatory [facility] Facility:H1 Start: 01-28-2023 End: 01-29-2023 ambulatory [facility] Facility:H1 Start: 01-06-2023 End: 01-06-2023 Emergency department patient visit KALPESH DAKSHA [facility] Start: 07-09-2022 End: 07-09-2022 Subsequent hospital visit by physician JOE Cameron RD Work Phone: [facility] Comment on above: Arrived Start: 07-02-2022 End: 07-02-2022 Subsequent hospital visit by physician [facility] Work Phone: [facility] Start: 06-25-2022 End: 06-27-2022 Subsequent hospital visit by physician Serenity Additional Xray At [facility] Radiology Comment on above: Foreign body (FB) in soft tissue Start: 06-25-2022 End: 06-27-2022 Subsequent hospital visit by physician [facility] Mri Scanner [facility] MRI Comment on above: Pain of foot, unspec ified laterality; Closed nondisplaced fracture of second metatarsal bone of left foot, initial encounter; Closed nondisplaced fracture of lateral cuneiform of left foot, initial encounter Start: 05-27-2022 End: 2022 Subsequent hospital visit by physician [facility] Comment on above: Neck mass Start: 04-28-2022 End: 04-29-2022 ambulatory [facility] Start: 04-28-2022 End: 04-28-2022 Subsequent [...] Start: 02-04-2022 End: 02-04-2022 Patient encounter procedure [facility] [address] Start: 02-03-2022 End: 02-03-2022 Subsequent hospital visit by physician Hilaria Trujillo [facility] Start: 01-29-2022 End: 01-29-2022 Subsequent hospital visit by physician Beverly Rangel PSYCHOLOGIST DEVELOPMENTAL [facility] Comment on above: Arrived Start: 01-27-2022 End: 01-27-2022 Subsequent hospital visit by physician Christel Donohue PT [facility] Comment on above: Arrived Start: 01-24-2022 End: 01-24-2022 Subsequent hospital visit by physician Vanessa Garcia PT [facility] Comment on above: Arrived Start: 01-22-2022 End: 01-22-2022 Subsequent hospital visit by physician Beverly Rangel PSYCHOLOGIST DEVELOPMENTAL [facility] Start: 01-17-2022 End: 01-17-2022 Subsequent hospital visit by physician Beverly Rangel PSYCHOLOGIST DEVELOPMENTAL [facility] Comment on above: Arrived Start: 01-13-2022 End: 01-13-2022 Subsequent hospital visit by physician Christel Donohue PT [facility] Start: 01-03-2022 End: 01-03-2022 Subsequent hospital visit by physician Beverly Rangel PSYCHOLOGIST DEVELOPMENTAL [facility] Comment on above: Arrived [...] 11-29-2021 End: 11-29-2021 ambulatory FELIPE ADAM [facility] Start: 08-01-2021 End: 08-01-2021 Subsequent hospital visit [...] Adam MD Work Phone: [facility] Start: 04-13-2021 End: 04-13-2021 Subsequent hospital visit by physician Felipe Adam MD Work Phone: [facility] Comment on above: Acute cystitis with hematuria Start: 02-13-2021 End: 02-13-2021 Subsequent hospital visit by physician [facility] Covid19 Pat Screening Schedule [facility] Comment on above: Suspected COVID-19 v irus infection Start: 01-21-2021 End: 01-21-2021 Subsequent hospital visit by physician [facility] Covnj19 Pat Screening Schedule [facility] Comment on above: Viral illness Start: 11-15-2020 End: 11-15-2020 Subsequent hospital visit by physician [facility] Comment on above: Arrived Start: 09-16-2020 End: 09-16-2020 Emergency department patient visit Phillipdipak Sales Toribio Work Phone: [facility] ED Comment on above: Acute thoracic back pain, unspecified back pain laterality (Primary Dx) Start: 08-24-2020 End: 08-24-2020 Subsequent hospital visit by physician Felipe Adam [facility] Comment on above: Epidural abscess Start: 08-08-2020 End: 08-08-2020 Subsequent hospital visit by physician Felipe Adam [facility] Comment on above: SOB (shortness of br eath) Start: 07-24-2020 End: 07-24-2020 Subsequent hospital visit by physician Felipe Adam [facility] Comment on above: Epidural abscess Start: 06-07-2020 End: 06-07-2020 Subsequent hospital visit by physician Felipe Adam [facility] Start: 05-25-2020 End: 05-25-2020 Subsequent hospital visit by physician Felipe Adam [facility] Comment on above: Vitamin D deficiency ; Mixed hyperlipidemia; Hyperglycemia Start: 12-14-2019 End: 12-14-2019 Subsequent hospital visit by physician Felipe Adam [facility] Comment on above: MRSA (methicillin re sistant Staphylococcus aureus) septicemia (HCC) Start: 09-24-2019 End: 09-24-2019 Subsequent hospital visit by physician Felipe Adam MD Work Phone: [facility] Start: 09-12-2019 End: 09-12-2019 Subsequent hospital visit by physician Felipe Adam MD Work Phone: [facility] Start: 08-29-2019 End: 08-29-2019 Subsequent hospital visit by physician [facility] Schedule [facility] Comment on above: Arrived Start: 07-28-2019 End: 07-30-2019 Subsequent hospital visit by physician Tennille Additional Xray At [facility] Radiology Comment on above: MRSA (methicillin re sistant Staphylococcus aureus) septicemia (HCC) Start: 06-17-2019 End: 06-17-2019 Subsequent hospital visit by physician Felipe Adam [facility] Laboratory Comment on above: MRSA (methicillin re sistant Staphylococcus aureus) infection Start: 02-03-2019 End: 02-04-2019 Patient encounter procedure TIFFANIE W CASAS [facility] Start: 02-03-2019 End: 02-03-2019 Subsequent hospital visit by physician Tiffanie Casas Work Phone: [facility]ated [facility] MRI Comment on above: Brachial neuritis; Peripheral nerve disorder; Spasm of muscle Start: 11-10-2018 End: 11-10-2018 Patient encounter procedure Andrey Early Facility:[place] [facility] Start: 10-18-2018 End: 10-18-2018 Patient encounter procedure Andrey Early Work Phone: [facility] Start: 10-03-2018 Patient encounter procedure Dav Hartman Facility:[place] [facility] Start: 10-03-2018 End: 10-03-2018 Patient encounter procedure [facility] Start: 09-20-2018 End: 09-21-2018 Patient encounter procedure Gosia Hartman Facility:[facility] Start: 09-20-2018 Patient encounter procedure Facility:[id number] Start: 09-13-2018 Patient encounter procedure GOSIA HARTMAN [facility] Start: 09-06-2018 End: 09-06-2018 Patient encounter procedure [facility] Provider [facility] Start: 08-31-2018 End: 08-31-2018 Patient encounter procedure [facility] Start: 08-27-2018 End: 08-28-2018 Patient encounter procedure Gosia Hartman Facility:[facility] Start: 08-27-2018 Patient encounter procedure Facility:[id number] Start: 08-15-2018 End: 08-25-2018 Evaluation and management of inpatient [facility] Start: 04-02-2018 End: 04-02-2018 Patient encounter procedure Melchor Calderon Facility:[place] Start: 03-23-2018 Patient encounter procedure Shanice Juares Facility:[place] Start: 02-04-2018 End: 02-04-2018 Ambulatory Melchor Weston [facility] Start: 11-24-2017 [facility] Start: 11-17-2017 End: 11-17-2017 Ambulatory Ceferino Jory Work Phone: [facility] Start: 10-20-2017 End: 10-20-2017 Ambulatory DAKSHA BETANCOURT [facility] Start: 10-20-2017 [facility] Start: 10-09-2017 Ambulatory [facility] Start: 10-09-2017 End: 10-09-2017 [facility] Start: 09-16-2017 [facility] Start: 08-03-2017 [facility] Start: 03-31-2017 End: 03-31-2017 Ambulatory SHANICE GOLDSTEIN MOR [facility] [place] [facility] Procedures Date Procedure Procedure Detail Performing Clinician Start: 06-15-2023 Lipid panel Felipe Adam MD Work Phone: Start: 02-05-2023 Chloride bld Nikhil Cassidy DPM Work Phone: Start: 02-05-2023 Smr prim src wet prabhjot nt nfct agt Luis Mclean PA-C Work Phone: Start: 06-25-2022 Mri lower extrem oth /thn jt w/o & w/contr matr Robbin Sánchez DPM Work Phone: Start: 06-25-2022 Radiologic examinati on foot 2 views Micky Lauren MD Work Phone: Start: 05-27-2022 Us soft tissue head & neck real time imge haven Adam MD Work Phone: Start: 04-12-2022 Comprehensive [...] Forbes MD Work Phone: Start: 01-21-2021 COVID-19 Pattie benderms DRUG PURCHASER - PASSENGER LOCOMOTIVE ENGINEER Work Phone: Start: 11-15-2020 COVID-19 Dav flores Work Phone: Start: 09-16-2020 Urnls dip stick/tabl [...] Start: 08-24-2020 Sedimentation rate r bc automated GosiaTae Hartman Work Phone: Start: 07-24-2020 Blood count complete auto&auto difrntl wbc Gosiachasity Hartman Work Phone: Start: 07-24-2020 C-reactive protein GosiaTae Hartman Work Phone: Start: 07-24-2020 Sedimentation rate r bc automated GosiaTae Hartman Work Phone: Start: 06-07-2020 Protein total [...] Work Phone: Start: 12-14-2019 C-reactive protein Azalea Longyaritzaorne Work Phone: Start: 09-24-2019 Hemoglobin glycosyla jamia a1c Janel Allen DRUG PURCHASER - PASSENGER LOCOMOTIVE ENGINEER Work Phone: Start: 09-24-2019 VITAMIN B12 & FOLATE Ja danny Allen DRUG PURCHASER - PASSENGER LOCOMOTIVE ENGINEER Work Phone: Start: 07-28-2019 Radex spine cervical 4 or 5 views Azalea Longthorne Work Phone: Start: 07-28-2019 Blood count complete auto&auto difrntl wbc Azalea Knight DRUG PURCHASER - PASSENGER LOCOMOTIVE ENGINEER Work Phone: Start: 07-28-2019 C-reactive protein Azalea Knight DRUG PURCHASER - PASSENGER LOCOMOTIVE ENGINEER Work Phone: Start: 06-17-2019 Albumin serum plasma /whole blood Heather Forbes Work Phone: Start: 06-17-2019 Assay of magnesium Soumyaap na Andrei Work Phone: Start: 06-17-2019 Assay of phosphorus inorganic Heather Forbes Work Phone: Start: 06-17-2019 Assay of urea nitrog en quantitative Heather Forbes Work Phone: Start: 06-17-2019 Blood count hemoglobin Heather Forbes Work Phone: Start: 06-17-2019 Calcium total Heather king Work Phone: Start: 06-17-2019 Electrolyte panel [...] Unless otherwise noted, all testing performed by [facility] [address] [place], [place] [address] CLIA: [id number] Title Department Manager: Harshad Solano M.D. Start: 09-06-2018 End: 09-06-2018 LABS (OUTSIDE) Historical Provider Start: 08-31-2018 End: 08-31-2018 LABS (OUTSIDE) Historical Provider Start: 08-25-2018 IP CONSULT TO HOME C ARE NEEDS JV APPLE Start: 08-25-2018 Assay of magnesium WASE EM APPLE Start: 08-25-2018 Basic metabolic pane l calcium total JVMARISABEL APPLE Start: 08-25-2018 Blood count complete auto&auto difrntl wbc JV APPLE Start: 08-25-2018 Procalcitonin (pct) WAS MARISABEL APPLE Start: 08-25-2018 DISCHARGE PATIENT WASSAMIR APPLE Start: 08-25-2018 PULSE OXIMETRY, CONTINUOUS JV AP[facility] Start: 08-25-2018 INSERT PICC LINE JV APPLE Start: 08-25-2018 MISCELLANEOUS NURSIN G CARE ORDER (SPECIFY) JV APPLE Start: 08-25-2018 DME ORDER FOR WALKER OP JV APPLE Start: 08-25-2018 PULSE OXIMETRY, CONTINUOUS JVMARISABEL APPLE Start: 08-25-2018 NOTIFY PHYSICIAN (SPECIFY) JV AP[facility] Start: 08-25-2018 NURSING COMMUNICATION W MITCHEL APPLE Start: 08-25-2018 NASAL CANNULA OXYGEN WA BRENDA APPLE Start: 08-25-2018 INCENTIVE SPIROMETRY RT JV ZECHARIAH Start: 08-25-2018 INITIATE OXYGEN THER APY PROTOCOL JV APPLE Start: 08-25-2018 PULSE OXIMETRY, CONTINUOUS JVMARISABEL APPLE Start: 08-25-2018 Assay of magnesium WASE EM APPLE Start: 08-25-2018 Basic metabolic pane l calcium total JV APPLE Start: 08-25-2018 Blood count complete auto&auto difrntl wbc JV AP[facility] Start: 08-25-2018 PULSE OXIMETRY, CONTINUOUS JV APPLE Start: 08-25-2018 PULSE OXIMETRY, CONTINUOUS JV AP[facility] Start: 08-24-2018 PULSE OXIMETRY, CONTINUOUS JV AP[facility] Start: 08-24-2018 DIET GENERAL JV EDWARD Velma Start: 08-24-2018 OT EVAL AND TREAT JUJU APPLE Start: 08-24-2018 PT EVAL AND TREAT JUJU APPLE Start: 08-24-2018 PULSE OXIMETRY, CONTINUOUS JV APPLE Start: 08-24-2018 PULSE OXIMETRY, CONTINUOUS JV APPLE Start: 08-24-2018 INCENTIVE SPIROMETRY RT JV APPLE Start: 08-24-2018 INITIATE OXYGEN THER APY PROTOCOL JV APPLE Start: 08-24-2018 PULSE OXIMETRY, CONTINUOUS JV APPLE Start: 08-24-2018 ACID FAST CULTURE WI TH SMEAR JV APPLE Start: 08-24-2018 FUNGAL STAIN JV CASASBrock Carreon Start: 08-24-2018 TISSUE CULTURE JV LANG Start: 08-24-2018 FUNGUS CULTURE JV LANG Start: 08-24-2018 PULSE OXIMETRY, CONTINUOUS JV APPLE Start: 08-24-2018 Procalcitonin (pct) WAS MARISABEL CASASAN Start: 08-24-2018 PULSE OXIMETRY, CONTINUOUS JV APPLE Start: 08-24-2018 DRAIN CARE JV CASASBrock Carreon Start: 08-24-2018 MISCELLANEOUS NURSIN G CARE ORDER (SPECIFY) JV CASASAN Start: 08-24-2018 TRANSFER PATIENT JV APPLE Start: 08-24-2018 FLUORO FOR SURGICAL PROCEDURES JV APPLE Start: 08-23-2018 ANAEROBIC AND AEROBI C CULTURE JV APPLE Start: 08-23-2018 PULSE OXIMETRY, CONTINUOUS JV APPLE Start: 08-23-2018 PULSE OXIMETRY, CONTINUOUS JV APPLE Start: 08-23-2018 PULSE OXIMETRY, CONTINUOUS JV APPLE Start: 08-23-2018 IP CONSULT TO IV TEAM Jone APPLE Start: 08-23-2018 INCENTIVE SPIROMETRY RT JV CASASAN Start: 08-23-2018 INITIATE OXYGEN THER APY PROTOCOL JV CASASAN Start: 08-23-2018 PULSE OXIMETRY, CONTINUOUS JV APPLE Start: 08-23-2018 Blood count complete auto&auto difrntl wbc JV APPLE Start: 08-23-2018 Comprehensive metabo lic panel JV ZECHARIAH Start: 08-23-2018 Reticulated platelet assay JVMARISABEL APPLE Start: 08-23-2018 PULSE OXIMETRY, CONTINUOUS JVMARISABEL APPLE Start: 08-23-2018 PULSE OXIMETRY, CONTINUOUS JVMARISABEL APPLE Start: 08-22-2018 PULSE OXIMETRY, CONTINUOUS JVMARISABEL APPLE Start: 08-22-2018 PULSE OXIMETRY, CONTINUOUS JVMARISABEL APPLE Start: 08-22-2018 PULSE OXIMETRY, CONTINUOUS JVMARISABEL APPLE Start: 08-22-2018 INCENTIVE SPIROMETRY RT JVMARISABEL APPLE Start: 08-22-2018 INITIATE OXYGEN THER APY PROTOCOL JVMARISABEL APPLE Start: 08-22-2018 PULSE OXIMETRY, CONTINUOUS JVMARISABEL APPLE Start: 08-22-2018 Assay of magnesium WASTae APPLE Start: 08-22-2018 Blood count complete auto&auto difrntl wbc JV APPLE Start: 08-22-2018 VANCOMYCIN, TROUGH WASTae APPLE Start: 08-22-2018 PULSE OXIMETRY, CONTINUOUS JV APPLE Start: 08-22-2018 PULSE OXIMETRY, CONTINUOUS JV APPLE Start: 08-21-2018 PULSE OXIMETRY, CONTINUOUS JVMARISABEL APPLE Start: 08-21-2018 Procalcitonin (pct) WAS MARISABEL APPLE Start: 08-21-2018 PULSE OXIMETRY, CONTINUOUS JV APPLE Start: 08-21-2018 PULSE OXIMETRY, CONTINUOUS JV APPLE Start: 08-21-2018 Mri lower extrem oth /thn jt w/o & w/contr matr JV APPLE Start: 08-21-2018 INCENTIVE SPIROMETRY RT JV APPLE Start: 08-21-2018 INITIATE OXYGEN THER APY PROTOCOL JV APPLE Start: 08-21-2018 PULSE OXIMETRY, CONTINUOUS JV APPLE Start: 08-21-2018 Assay of magnesium SHOAIB APPLE Start: 08-21-2018 Blood count complete auto&auto difrntl wbc JV APPLE Start: 08-21-2018 PULSE OXIMETRY, CONTINUOUS JV APPLE Start: 08-21-2018 PULSE OXIMETRY, CONTINUOUS JVMARISABEL APPLE Start: 08-20-2018 PULSE OXIMETRY, CONTINUOUS JVMARISABEL APPLE Start: 08-20-2018 MISCELLANEOUS NURSIN G CARE ORDER (SPECIFY) JV APPLE Start: 08-20-2018 Radex foot complete minimum 3 views JV APPLE Start: 08-20-2018 PULSE OXIMETRY, CONTINUOUS JV APPLE Start: 08-20-2018 C-reactive protein SHOAIB APPLE [...] Start: 08-19-2018 IP CONSULT TO IV TEAM Jone APPLE Start: 08-19-2018 Assay of magnesium SHOAIB APPLE Start: 08-19-2018 Blood count complete auto&auto difrntl wbc JV APPLE Start: 08-19-2018 PULSE OXIMETRY, CONTINUOUS JV APPLE Start: 08-19-2018 PULSE OXIMETRY, CONTINUOUS JV APPLE Start: 08-18-2018 PULSE OXIMETRY, CONTINUOUS JV APPLE Start: 08-18-2018 PULSE OXIMETRY, CONTINUOUS VJ APPLE Start: 08-18-2018 PULSE OXIMETRY, CONTINUOUS JV APPLE Start: 08-18-2018 TELEMETRY MONITORING NC BRENDA APPLE Start: 08-18-2018 INCENTIVE SPIROMETRY RT [...] CONTINUOUS JV APPLE Start: 08-16-2018 CONTACT ISOLATION TEOSAMIR Mónica APPLE Start: 08-16-2018 Assay of lactate JV APPLE Start: 08-16-2018 CALCIUM, IONIZED JV APPLE Start: 08-16-2018 IP CONSULT TO IV TEAM W MITCHEL APPLE Start: 08-16-2018 Assay of magnesium TEOTae JESUS APPLE Start: 08-16-2018 Blood count complete auto&auto difrntl wbc JV APPLE Start: 08-16-2018 Prothrombin time JV APPLE Start: 08-16-2018 PULSE OXIMETRY, CONTINUOUS JV APPLE Start: 08-16-2018 DAILY WEIGHTS JV KH AN Start: 08-16-2018 PULSE OXIMETRY, CONTINUOUS JV APPLE Start: 08-16-2018 EKG 12-LEAD JV LEON N Start: 08-16-2018 Assay of lactate JV APPLE Start: 08-16-2018 Troponin I.cardiac m ass conc JV APPLE Start: 08-15-2018 PULSE OXIMETRY, CONTINUOUS JV APPLE Start: 08-15-2018 INITIATE RT PROTOCOL BRITTA APPLE Start: 08-15-2018 LEGIONELLA ANTIGEN, URINE JV KHAN Start: 08-15-2018 STREP PNEUMONIAE ANTIGEN JV APPLE Start: 08-15-2018 IP CONSULT TO NEUROLOGY JV ZECHARIAH Start: 08-15-2018 Assay of lactate JV APPLE Start: 08-15-2018 Culture bacterial bl ood aerobic w/id isolates JV APPLE Start: 08-15-2018 CULTURE BLOOD #1 JV APPLE Start: 08-15-2018 MYCOPLASMA PNEUMONIA E ANTIBODY, IGM JV APPLE Start: 08-15-2018 Procalcitonin (pct) WAS MARISABEL APLPE Start: 08-15-2018 Troponin I.cardiac m ass conc JV APPLE Start: 08-15-2018 BATHROOM PRIVILEGES WITH ASSISTANCE JV APPLE Start: 08-15-2018 TELEMETRY MONITORING BRITTA APPLE Start: 08-15-2018 Cul bact xcpt urine blood/stool aerobic isol JV APPLE Start: 08-15-2018 ENCOURAGE DEEP BREAT KIERRA AND COUGHING JV APPLE Start: 08-15-2018 FULL CODE JV Carreon Start: 08-15-2018 INCENTIVE SPIROMETRY RT JV APPLE [...] JV APPLE Start: 08-15-2018 VITAL SIGNS JV Carreon Start: 08-15-2018 PATIENT STATUS (DIRECT) JV APPLE Start: 03-20-2017 Microscopic observat ion [Identifier] in Cervix by Cyto stain Tiffanie Casas Plan of Treatment Date Care Activity Detail Author Start: 2029 Shingles Vaccine (1 of 2) Shingles Vaccine (1 of 2) [facility] [place] Start: 04-12-2027 Lipid panel Lipids [facility] [employer] Start: 05-14-2026 Lipid panel [email or web address] Start: 05-25-2025 Lipid panel Lipid screen [place], [place] Start: 09-24-2024 Screening for malignant neoplasm of cervix [facility] Start: 09-08-2024 DTaP/Tdap/Td vaccine (2 - Td or Tdap) DTaP/Tdap/Td vaccine (2 - Td or Tdap) [facility] Start: 09-08-2024 DTaP/Tdap/Td vaccine (2 - Td) DTaP/Tdap/Td vaccine (2 - Td) [place] Start: 09-08-2024 Tetanus vaccination [facility] Start: 05-17-2024 GFR test (Diabetes, CKD 3-4, OR last GFR 15-59) GFR test (Diabetes, CKD 3-4, OR last GFR 15-59) [facility] Start: 05-14-[address] screen [facility] Start: 05-11-2024 Lipid panel Lipid screen [place] Start: 05-11-2024 Lipid screen Lipid screen [place] Start: 03-23-2024 Depression Monitoring Depression Monitoring [facility] Start: 02-06-2024 GFR test (Diabetes, CKD 3-4, OR last GFR 15-59) GFR test (Diabetes, CKD 3-4, OR last GFR 15-59) [facility] Start: 02-06-2024 Hemoglobin A1c measurement A1C test (Diabetic or Prediabetic) [facility] Start: 08-13-2023 End: 08-13-2023 Patient encounter procedure [facility] Start: 06-22-2023 End: 06-22-2023 Patient encounter procedure 06/22/2023 11:15 AM EDT Office Visit [facility] [address] [place] [address] [place] [address] [facility] Start: 06-05-2023 Influenza vaccination Sequential Influenza Vaccine (Season Ended) [facility] Start: 05-05-2023 Influenza vaccination [facility] Start: 04-14-2023 End: 04-14-2023 Patient encounter procedure 04/14/2023 Office Visit Family Medicine Felipe Adam MD [address] [place] [address] [facility] Start: 04-12-2023 Hemoglobin A1c measurement A1C test (Diabetic or Prediabetic) [facility] Start: 04-11-2023 Depression Monitoring Depression Monitoring [facility] [employer] [facility] Start: 04-11-2023 History and physical examination, annual for health maintenance Wellness Visit [facility] Start: 12-25-2022 End: 12-25-2022 Patient encounter procedure 12/25/2022 Office Visit Infectious Diseases Dav Hartman MD [address] [address] [facility] Start: 09-24-2022 Diabetes screen Diabetes screen [place], [place] Start: 08-07-2022 End: 08-07-2022 Patient encounter procedure 08/07/2022 Office Visit Urology Luis Mclean, PA-C 27 [facility] [address] [address] [facility] Start: 07-15-2022 End: 07-15-2022 Nursing evaluation of patient and report 07/15/2022 Nurse Only Family Medicine [facility] Start: 07-09-2022 End: 07-09-2022 Patient encounter procedure 07/09/2022 Appointment IP Unit Samantha Lino RD, LD [facility] Diet and Nutrition Start: 06-05-[address] [facility] Start: 05-20-2022 Creatinine measurement [email or web address] Start: 05-20-2022 Potassium [Moles/volume] in Serum or [facility] Start: 05-20-2022 Potassium monitoring Potassium monitoring [facility] Start: 05-14-2022 Creatinine measurement Creatinine monitoring [email or web address] Work Phone: Start: 05-14-2022 Potassium monitoring Potassium monitoring [email or web address] Work Phone: Start: 05-05-2022 Influenza vaccination Flu vaccine (#1) [facility] Start: 02-05-2022 End: 02-05-2022 Patient encounter procedure 02/05/2022 Appointment Physical Therapy Christel Donohue, PT [facility] Start: 02-03-2022 End: 02-03-2022 Patient encounter procedure [facility] Start: 01-30-2022 End: 01-30-2022 Patient encounter procedure [facility] Start: 01-29-2022 End: 01-29-2022 Patient encounter procedure 01/29/2022 Appointment Physical Therapy Beverly Rangel PSYCHOLOGIST DEVELOPMENTAL [facility] Start: 01-27-2022 End: 01-27-2022 Patient encounter procedure 01/27/2022 Appointment Physical Therapy Christel Donohue, PT [facility] Start: 01-24-2022 End: 01-24-2022 Patient encounter procedure 01/24/2022 Appointment Physical Therapy Vanessa Garcia PT [facility] Start: 01-22-2022 End: 01-22-2022 Patient encounter procedure 01/22/2022 Appointment Physical Therapy Beverly Rangel, PSYCHOLOGIST DEVELOPMENTAL [facility] Start: 01-17-2022 End: 01-17-2022 Patient encounter procedure 01/17/2022 Appointment Physical Therapy Beverly Rangel, PSYCHOLOGIST DEVELOPMENTAL [facility] Start: 01-10-2022 End: 01-10-2022 Patient encounter procedure 01/10/2022 Appointment Physical Therapy Christel Donohue PT [facility] Start: 01-08-2022 End: 01-08-2022 Patient encounter procedure 01/08/2022 Appointment Physical Therapy Beverly Rangel PSYCHOLOGIST DEVELOPMENTAL [facility] Start: 01-02-2022 End: 01-02-2022 Patient encounter procedure 01/02/2022 Appointment Occupational Therapy Judi Marie OTA [address] [place] [address] [facility] Start: 12-31-[address] [facility] [place], [place] Start: 12-31-2021 End: 12-31-2021 Patient encounter procedure [facility] Start: 12-30-2021 End: 12-30-2021 Patient encounter procedure 12/30/2021 Appointment Occupational Therapy Cheryl Herman OT [facility] Start: 12-27-2021 End: 12-27-2021 Patient encounter procedure 12/27/2021 Appointment Occupational Therapy Eve Gaspar OTA [facility] Start: 11-14-2021 End: 11-14-2021 Patient encounter procedure 11/14/2021 Office Visit Family Felipe Banerjee MD [address] [place] [address] [phone] [facility] Start: 10-29-2021 Depression Monitoring Depression Monitoring [employer] Start: 09-16-2021 Creatinine measurement Creatinine monitoring [employer] Phone: Start: 09-16-2021 Potassium monitoring Potassium monitoring [employer] Phone: Start: 08-01-2021 End: 08-01-2021 Patient encounter procedure 08/01/2021 Office Visit Urology Lita Weeks MD [address] [facility], [address] [place] [address] [employer] [facility] Start: 06-05-2021 Influenza vaccination [employer] Start: 05-25-2021 Creatinine measurement Creatinine monitoring [employer] [place] Start: 05-25-2021 HbA1c (Bld) [Mass fraction] A1C test (Diabetic or Prediabetic) [employer] [place], [place] Start: 05-25-2021 Hemoglobin A1c measurement A1C test (Diabetic or Prediabetic) [employer] Phone: Start: 05-25-2021 Potassium monitoring Potassium monitoring [employer] [place], [place] Start: 11-13-2020 End: 11-13-2020 Office Visit 11/13/2020 Office Visit Felipe Hampton MD [address] [place] [address] [phone] [facility] Start: 11-02-2020 Potassium monitoring Potassium monitoring [place], [place] Start: 10-23-2020 End: 10-23-2020 Office Visit 10/23/2020 Office Visit Infectious Diseases Dav Hartman MD [address] [place], [place] [id number] [facility] Start: 09-24-2020 HbA1c (Bld) [Mass fraction] A1C test (Diabetic or Prediabetic) [place] Start: 06-17-2020 Creatinine measurement Creatinine monitoring [place], [place] Start: 06-17-2020 Creatinine monitoring Creatinine monitoring [place], [place] Start: 06-17-2020 Potassium monitoring Potassium monitoring [place] Start: 06-12-2020 End: 06-12-2020 Office Visit 06/12/2020 Office Visit Infectious Diseases Dav Hartman MD [address] [place] [address] [phone] [facility] Start: 06-05-2020 Influenza vaccination Flu vaccine (#1) [place] Start: 03-20-2020 Cervical cancer screen Cervical cancer screen [place], [place] Start: 03-20-2020 Screening for malignant neoplasm of cervix [facility] Start: 11-01-2019 End: 11-01-2019 Office Visit 11/01/2019 Office Visit Infectious Dav Beaver MD [address] [place] [address] [phone] [facility] Start: 07-28-2019 End: 07-28-2019 Office Visit 07/28/2019 Office Visit Infectious Dav Beaver MD [address] [place] [phone] [facility] Start: 06-27-2019 End: 06-27-2019 Nurse Only 06/27/2019 Nurse Only Family Medicine [facility] Start: 06-05-2019 Influenza vaccination Flu vaccine (#1) [place] Start: 06-05-2019 Influenza vaccination given SEQUENTIAL INFLUENZA VACCINE (Season Ended) [facility] Start: 2019 Screening for malignant neoplasm of breast Mammogram [facility] Start: 06-05-2018 Influenza vaccination INFLUENZA VACCINE (#1) [facility] Work Phone: Start: 03-23-2018 End: 03-23-2018 Ambulatory [facility] Start: 2009 Screening for malignant neoplasm of cervix HPV (without or with Pap) [facility] Start: 2000 Screening for malignant neoplasm of cervix PAP SMEAR DISCUSSION [facility] Work Phone: Start: 1998 Third diphtheria, tetanus and acellular pertussis (DTaP) vaccination TDAP (ADULT) [facility] Work Phone: Start: 1997 Hepatitis C screening Hepatitis C Screening [facility] Start: 1997 Tetanus vaccination TETANUS [facility] Work Phone: Start: 1995 COVID-19 Vaccine (1) COVID-19 Vaccine (1) [facility] Work Phone: Start: 1994 HIV screen HIV screen [place], [place] Start: [address] [facility] Start: 1992 HIV screening HIV SCREENING DISCUSSION [facility] Work Phone: Start: 1991 COVID-19 Vaccine (1) COVID-19 Vaccine (1) [facility] [employer] Phone: Start: 1991 Depression Monitoring Depression Monitoring [facility] Start: 1991 Depression screening using PHQ-9 (Patient Health Questionnaire 9) score Depression Screening (PHQ-2/9) [facility] Start: 1989 Urine screening for protein Urine Microalbumin [facility] Start: 1985 Pneumococcal Vaccine: Ped or At-Risk (1 - PCV) Pneumococcal Vaccine: Ped or At-Risk (1 - PCV) [facility] Start: 1984 COVID-19 Vaccine (1) COVID-19 Vaccine (1) [employer] Start: 1982 History and physical examination, annual for health maintenance Wellness Visit [facility] Start: 1979 COVID-19 Vaccine (#1) COVID-19 Vaccine (#1) [facility] [employer] Start: 1979 Hepatitis B vaccine (1 of 3 - 3-dose series) Hepatitis B vaccine (1 of 3 - 3-dose series) [facility] End: 02-13-2021 COVID-19 COVID-19 Lab Routine Suspected COVID-19 virus infection 1 Occurrences starting 02/13/2021 until 02/13/2021 [employer] Phone: Comment on above: 1 Occurrences starting 02/13/2021 until 02/13/2021 COVID-19 COVID-19 Lab Rou luis Suspected COVID-19 virus infection 02/13/2021 3:06 PM EDT [employer] Phone: End: 08-08-2020 COVID-19 Ambulatory COVID-19 Ambulatory Lab Routine SOB (shortness of breath) 1 Occurrences starting 08/08/2020 until 08/08/2020 [facility] [place] Comment on above: 1 Occurrences starting 08/08/2020 until 08/08/2020 COVID-19 Ambulatory COVID-19 Amb ulatory Lab Routine SOB (shortness of breath) 08/08/2020 4:02 PM EST [place] End: 05-20-2021 Creatinine [Mass/volume] in Urine Creatinine, Random Urine Lab Routine Once for 1 Occurrences starting 05/20/2021 until 05/20/2021 [employer] Phone: Comment on above: Once for 1 Occurrences starting 05/20/20 21 until 05/20/2021 Creatinine [Mass/vol ume] in Urine Creatinine, Random Urine Lab Routine 05/20/2021 7:57 PM EDT [employer] Phone: End: 04-13-2021 Culture, Urine Culture, Urine Microbiology Routine Acute cystitis with hematuria 1 Occurrences starting 04/13/2021 until 04/13/2021 [employer] Phone: Comment on above: 1 Occurrences starting 04/13/2021 until 04/13/2021 Culture, Urine [employer] Phone: End: 05-27-2021 Culture, Urine Culture, Urine Microbiology Routine Difficult or painful urination 1 Occurrences starting 05/27/2021 until 05/27/2021 [employer] Phone: Comment on above: 1 Occurrences starting 05/27/2021 until 05/27/2021 End: 06-11-2021 Culture, Urine Culture, Urine Microbiology Routine Acute cystitis with hematuria Recurrent UTI 1 Occurrences starting 06/11/2021 until 06/11/2021 [employer] Phone: Comment on above: 1 Occurrences starting 06/11/2021 until 06/11/2021 End: 07-11-2021 Culture, Urine Culture, Urine Microbiology Routine Frequent UTI Urinary urgency Urinary frequency 1 Occurrences starting 07/11/2021 until 07/11/2021 [employer] Phone: Comment on above: 1 Occurrences starting 07/11/2021 until 07/11/2021 End: 08-01-2021 Culture, Urine Culture, Urine Microbiology Routine Frequent UTI Urinary urgency Urinary frequency 1 Occurrences starting 08/01/2021 until 08/01/2021 [employer] Phone: Comment on above: 1 Occurrences starting 08/01/2021 until 08/01/2021 End: 04-28-2022 Culture, Urine Culture, Urine Microbiology Routine Acute cystitis with hematuria 1 Occurrences starting 04/28/2022 until 04/28/2022 [employer] Phone: Comment on above: 1 Occurrences starting 04/28/2022 until 04/28/2022 End: 02-05-2023 Culture, Urine [employer] Phone: Comment on above: 1 Occurrences starting 02/05/2023 until 02/05/2023 End: 04-12-2022 Hemoglobin A1c/Hemoglobin.total in Blood [employer] Phone: Comment on above: 1 Occurrences starting 04/12/2022 until 04/12/2022 End: 02-05-2023 Hemoglobin A1c/Hemoglobin.total in Blood [employer] Phone: Comment on above: Once for 1 Occurrences starting 02/06/20 until 02/05/2023 End: 08-29-2019 Home Sleep Study Home Sleep Study Sleep Center Routine One Time for 1 Occurrences starting 08/29/2019 until 08/29/2019 [employer] [place], [place] Comment on above: One Time for 1 Occurrences starting 08/06 until 08/29/2019 End: 09-24-2019 Methylmalonic Acid, Serum Methylmalonic Acid, Serum Lab Routine Once for 1 Occurrences starting 09/24/2019 until 09/24/2019 [employer] Phone: Comment on above: Once for 1 Occurrences starting 09/24/20 until 09/24/2019 Methylmalonic Acid, Serum Methyl malonic Acid, Serum Lab Routine 09/24/2019 9:33 AM [employer] Phone: End: 09-24-2019 Nuclear Ab [Titer] in Serum by Immunofluorescence ALICJA Lab Routine Once for 1 Occurrences starting 09/24/2019 until 09/24/2019 [employer] Phone: Comment on above: Once for 1 Occurrences starting 09/24/20 until 09/24/2019 Nuclear Ab [Titer] i n Serum by Immunofluorescence ALICJA Lab Routine 09/24/2019 9:33 AM [employer] Phone: End: 05-20-2021 Protein, urine, random Protein, urine, random Lab Routine Once for 1 Occurrences starting 05/20/2021 until 05/20/2021 [employer] Phone: Comment on above: Once for 1 Occurrences starting 05/20/20 until 05/20/2021 Protein, urine, random Protein, urine, random Lab Routine 05/20/2021 7:57 PM EDT [employer] Phone: End: 12-14-2019 Sedimentation Rate Sedimentation Rate Lab Routine MRSA (methicillin resistant Staphylococcus aureus) septicemia (HCC) 1 Occurrences starting 12/14/2019 until 12/14/2019 [facility] Comment on above: 1 Occurrences starting 12/14/2019 until 12/14/2019 Sedimentation Rate Sedimentation Rate Lab Routine MRSA (methicillin resistant Staphylococcus aureus) septicemia (HCC) 12/14/2019 12:39 PM EDT [facility] [place] End: 09-24-2019 Sjogrens syndrome-A extractable nuclear antibody Sjogrens syndrome-A extractable nuclear antibody Lab Routine Once for 1 Occurrences starting 09/24/2019 until 09/24/2019 [employer] Phone: Comment on above: Once for 1 Occurrences starting 09/24/20 until 09/24/2019 Sjogrens syndrome-A extractable nuclear antibody Sjogrens syndrome-A extractable nuclear antibody Lab Routine 09/24/2019 9:33 AM EST [employer] Phone: End: 09-24-2019 Sjogrens syndrome-B extractable nuclear antibody Sjogrens syndrome-B extractable nuclear antibody Lab Routine Once for 1 Occurrences starting 09/24/2019 until 09/24/2019 [employer] Phone: Comment on above: Once for 1 Occurrences starting 09/24/20 until 09/24/2019 Sjogrens syndrome-B extractable nuclear antibody Sjogrens syndrome-B extractable nuclear antibody Lab Routine 09/24/2019 9:33 AM EST [employer] Phone: End: 09-12-2019 Sleep Study with PAP Titration Sleep Study with PAP Titration Sleep Center Routine One Time for 1 Occurrences starting 09/12/2019 until 09/12/2019 [employer] Phone: Comment on above: One Time for 1 Occurrences starting 06/2019 until 09/12/2019 End: 09-24-2019 Vitamin B6 Vitamin B6 Lab Routine Once for 1 Occurrences starting 09/24/2019 until 09/24/2019 [employer] Phone: Comment on above: Once for 1 Occurrences starting 09/24/20 19 until 09/24/2019 Vitamin B6 Vitamin B6 Lab R outine 09/24/2019 9:33 AM EST [employer] Work Phone: Immunizations Immunization Date Immunization Notes Care Provider Yair dai 09-08-2014 tetanus toxoid, redu gaby diphtheria toxoid, and acellular pertussis vaccine, adsorbed Felipe Back [employer] [facility] [place], [place] Payers Date Payer Category Payer Unknown 2016 Unknown [id number] 2016 Unknown xxxxxxxxxxxxxxx [id number] 2014 Medicaid [id number] 2014 Medicaid [employer] xxxxxxxxxxx 2014-Present xxxxxxxxxxx [id number] 1979 Unknown [id number] 1979 Unknown [id number] [id number] 1979 Unknown [id number] 1979 Unknown [id number] 1979 Unknown [id number] [id number] 1979 Unknown [id number] [id number] 1979 Unknown [id number] [id number] 1979 Unknown [id number] [id number] 1979 Unknown [id number] [id number] 1979 Unknown [id number] [id number] 1979 Unknown [id number] [id number] 1979 Unknown [id number] [id number] 1979 Unknown [id number] [id number] 1979 Unknown [id number] [id number] 1979 Unknown [id number] 1980 Unknown [id number] 1980 Unknown [id number] 1979 Unknown [id number] 1979 Unknown [id number] 1979 Unknown [id number] 1979 Unknown [id number] 1979 Unknown [id number] 1979 Unknown [id number] 1979 Unknown [id number] 1959 Unknown [id number] Self-pay Self Pay [id number] Unknown [id number] Social History Date Type Detail Facility Start: 05-01-2015 End: 04-28-2022 Tobacco smoking status NHIS Never smoker [facility] Work Phone: Start: 1980 Sex Assigned At Not on file [facility] Work Phone: Start: 05-27-2019 End: 03-23-2023 Alcohol intake No [employer] [place] Start: 12-13-2019 End: 05-26-2023 Alcohol intake Current non-drinker of alcohol (finding) [employer] [place] Start: 12-09-2019 End: 05-13-2021 History SDOH Financial 4 [employer] [place] Start: 12-09-2019 End: 05-20-2022 History SDOH Food Worry 1 [employer] [place] Start: 12-09-2019 History SDOH Transport Med 2 [employer] [facility] [place] Start: 05-11-2020 End: 04-28-2022 Tobacco use and exposure Never used [facility] [place] Start: 10-30-2021 End: 03-02-2023 Exposure to SARS-CoV-2 (event) [facility] sure [facility] [place] Start: 1980 Sex Assigned At Female [facility] Start: 05-20-2022 History SDOH Financial 3 [employer] [employer] Work Phone: Start: 01-06-2023 End: 03-23-2023 History of Social function [facility] How hard is it for y ou to pay for the very basics like food, housing, medical care, and heating Not very hard [facility] Patient Health Questionnaire 9 item (PHQ-9) total score [Reported] 0 [facility] (I/We) worried wheth er (my/our) food would run out before (I/we) got money to buy more. Never true [facility] [employer] At any time in the p ast 12 months, were you homeless or living in group home [including now]? No [facility] Start: 10-09-2020 Gender identity Identifies as female gender (finding) [facility] Start: 10-09-2020 Sexual orientation Heterosexual (finding) [facility] Clinical Notes 12-23-2021 to 03-03-2023 MASSIMO Shook DPM - 03/03/2023 3:[address], LD - 07/09/2022 10:00 AM [...] She follows with an outside provider in [place] and was immobilized for an extended period [...] & Ankle Surgery documented in this encounter [facility] 01-29-2023 Note PROCEDURE: XR ANKLE LT MIN [...] authenticated by: PIPER MERCEDES Date: 2023-01-29 07:05 [facility] 01-29-2023 Note PROCEDURE: XR ANKLE LT [...] authenticated by: PIPER MERCEDES Date: 2023-01-29 07:05 [facility] 07-09-2022 History of Present illness Narrative MNT [...] BMR: 1573 calories Est. total calorie needs: ~4968-4723 Lab Results Component Value Date/Time TRIG 460 [...] bread Supper: pork chop or chicken, homemade liberian fries, mashed, or baked potato with broccoli [...] 55 minutes. documented in this encounter [facility] [employer] Phone: 02-05-2022 History of Present illness Narrative [facility] Date: 02/05/2022 Patient Name: Celina Gaspar : 1980 Pt No Showed Appt- Follow up call, left message on voicemail that patient discharged, but to call if has questions or concerns. Christel Donohue, PT Date: 02/05/2022 documented in this encounter [employer] Phone: 02-05-2022 Hospital course Narrative Images from the original note were not included. [facility] Discharge Summary Patient: Celina [...] PT Date: 02/05/2022 documented in this encounter [employer] Phone: 02-03-2022 History of Present illness Narrative [facility] Date: 02/03/2022 Patient Name: Celina Gaspar : 1980 Pt Cancelled Appt due to no reason for cancel. Jerica Marino Talia Date: 02/03/2022 documented in this encounter [employer] Phone: 01-29-2022 History of Present illness Narrative Images from the original note were not included. [facility] Daily Note Date: 01/29/2022 [...] Increase trunk ROM B rotation WFL-Not Met Care Home Goals - Time Frame for detention goals : 10 Care Home Goals Time Frame for detention goals : 10 detention goal 1: Decrease pain low back 2/10 at worst x3 days for completing normal activities detention goal 2: Patient to report 50% decrease in radicular symptoms L LE Post Treatment Pain: 5/10 Time In: 0859 Time Out: 0947 Timed Code Treatment Minutes: 48 Minutes Total Treatment Time: 48 Minutes Beverly Rangel, JENNIFER Date: 01/29/2022 documented in this encounter [employer] Phone: 01-27-2022 History of Present illness Narrative Images from the original note were not included. [facility] Daily Note Date: 01/27/2022 Patient Name: Celina Gaspar : 1980 (41 y.o.) Referring Practitioner: Liliane Sawyer APRN, PASSENGER LOCOMOTIVE ENGINEER Referral Date : 12/19/21 Diagnosis: Lumbar radiculopathy [...] Increase trunk ROM B rotation WFL-Not Met Care Home Goals - Time Frame for termite control servicer goals : 10 Care Home Goals Time Frame for termite control servicer goals : 10 termite control servicer goal 1: Decrease pain low back 2/10 at worst x3 days for completing normal activities detention goal 2: Patient to report 50% decrease in radicular symptoms L LE Post Treatment Pain: 4/10 Time In: 15:50 Time Out : 16:19 Timed Code Treatment Minutes: 34 Minutes Total Treatment Time: 34 Minutes Christel Donohue PT Date: 01/27/2022 documented in this encounter [employer] Phone: 01-24-2022 History of Present illness Narrative Images from the original note were not included. [facility] Daily Note Date: 01/24/2022 Patient Name: Celina Gaspar : 1980 (41 y.o.) Referring Practitioner: Liliane Sawyer APRN, PASSENGER LOCOMOTIVE ENGINEER Referral Date : 12/19/21 Diagnosis: Lumbar radiculopathy Treatment Diagnosis: Back Pain Onset Date: 12/19/21 (Referral) PT Insurance Information: [facility] Total # of Visits Approved: 10 Per [...] 4: Increase trunk ROM B rotation WFL Real Estate Operations Manager Goals - Time Frame for termite control servicer goals : 10 Real Estate Operations Manager Goals Time Frame for detention goals : 10 detention goal 1: Decrease pain low back 2/10 at worst x3 days for completing normal activities detention goal 2: Patient to report 50% decrease in radicular symptoms L LE Post Treatment Pain: 5/10 Time In: 0952 Time Out: 1030 Timed Code Treatment Minutes: 38 Minutes Total Treatment Time: 38 Minutes Vanessa Garcia, PT Date: 01/24/2022 documented in this encounter [employer] Phone: 01-22-2022 History of Present illness Narrative [facility] Date: 01/22/2022 Patient Name: Celina Sales Gaspar : 1980 Patient did not show up for her appointment. Message left on answering machine with a reminder of her next appointment on Thursday. Beverly Gutiérrez Claire, PSYCHOLOGIST DEVELOPMENTAL Date: 01/22/2022 documented in this encounter [employer] Phone: 01-17-2022 History of Present illness Narrative Images from the original note were not included. [facility] Daily Note Date: 01/17/2022 [...] 4: Increase trunk ROM B rotation WFL Care Home Goals - Time Frame for termite control servicer goals : 10 detention goal 1: Decrease pain low back 2/10 at worst x3 days for completing normal activities termite control servicer goal 2: Patient to report 50% decrease in radicular symptoms L LE Post Treatment Pain: 02/11 Time In: 1037 Time Out: 1107 Timed Code Treatment Minutes: 30 Minutes Total Treatment Time: 30 Minutes Beverly Rangel PTA Date: 01/17/2022 documented in this encounter [employer] Phone: 01-13-2022 History of Present illness Narrative [facility] Date: 01/13/2022 Patient Name: Celina Gaspar : 1980 Pt Cancelled Appt due to no reason given. NABILA Metzger Date: 01/13/2022 documented in this encounter [employer] Phone: 01-03-2022 History of Present illness Narrative Images from the original note were not included. [facility] Daily Note Date: 01/03/2022 [...] of Care/Certification Expiration Date: 02/07/22 Pre-Treatment Pain: 7 Assessment Assessment: Patient arrived reporting pain 10 with c/o icreased soreness post last session. [...] 4: Increase trunk ROM B rotation WFL Care Home Goals - Time Frame for termite control servicer goals : 10 detention goal 1: Decrease pain low back 2/10 at worst x3 days for completing normal activities detention goal 2: Patient to report 50% decrease in radicular symptoms L LE Post Treatment Pain: 5/10 Time In: 0948 Time Out: 1028 Timed Code Treatment Minutes: 40 Minutes Total Treatment Time: 40 Minutes Beverly Rangel PTA Date: 01/03/2022 documented in this encounter [facility] [employer] Phone: 12-31-2021 History of Present illness Narrative Images from the original note were not included. [facility] Daily Note Date: 12/31/2021 [...] Time Frame for Short term goals: STG=LTG Care Home Goals Time Frame for termite control servicer goals : 12 visits (01/24/2022) termite control servicer goal 1: pt to be indepenent in HEP-MET detention goal 2: Pt to demonstrate R wrist flexion to 65 degrees or more in order to engage in daily tasks-MET termite control servicer goal 3: Pt to demonstrate R wrist extension to 60 degrees or more in order to engage in daily tasks-MET termite control servicer goal 4: Pt to be educated on carpal tunnel do's & dont's in order to prevent further repetitive injury to wrist-MET Timed Code Treatment Minutes: 30 Minutes Time In: 915 Time Out: 945 Timed Coded Minutes: 30 Total Treatment Time: 30 THERESA Houser, OTR/L Date: 12/31/2021 documented in this encounter [employer] Phone: 12-31-2021 Hospital course Narrative Images from the original note were not included. 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 Therapist provided pt with handout on Carpal Tunnel Dos & Dont's to avoid re-injury. Prognosis: Fair Goals Short Term Goals Time Frame for Short term goals: STG=LTG Real Estate Operations Manager Goals Time Frame for detention goals : 12 visits (01/24/2022) termite control servicer goal 1: pt to be indepenent in HEP-MET detention goal 2: Pt to demonstrate R wrist flexion to 65 degrees or more in order to engage in daily tasks-MET detention goal 3: Pt to demonstrate R wrist extension to 60 degrees or more in order to engage in daily tasks-MET termite control servicer goal 4: Pt to be educated on carpal tunnel do's & dont's in order to prevent further repetitive injury to wrist-MET Reason for Discharge [] Poor Follow Through [] Completion of Prescribed Sessions [x] Optimal Function Achieved [] Patient Discharged Self [x] Goals Achieved Comments: Thank you for this referral THERESA Houser, OTR/L Date: 12/31/2021 documented in this encounter [employer] Phone: 12-31-2021 History of Present illness Narrative Images from the original note were not included. [facility] Evaluation Date: 12/31/2021 Patient: Celina Gaspar : 1980 Referring Practitioner: Liliane Sawyer APRN, GRETEL Referral Date : 12/19/21 Diagnosis: Lumbar radiculopathy [...] 4: Increase trunk ROM B rotation WFL detention goals Time Frame for detention goals : 10 detention goal 1: Decrease pain low back 2/10 at worst x3 days for completing normal activities detention goal 2: Patient to report 50% decrease in radicular symptoms L EILJAH Patient's Goal: Decrease back pain to complete normal activities Timed Code Treatment Minutes: 15 Minutes Total Treatment Time: 45 Time In: 8:30 Time Out: 9:15 Christel Donohue, PT Date: 12/31/2021 documented in this encounter [facility] Phone: 12-30-2021 History of Present illness Narrative Images from the original note were not included. [facility] Daily Note Date: 12/30/2021 [...] Time Frame for Short term goals: STG=LTG Care Home Goals Time Frame for detention goals : 12 visits (01/24/2022) termite control servicer goal 1: pt to be indepenent in HEP-MET detention goal 2: Pt to demonstrate R wrist flexion to 65 degrees or more in order to engage in daily tasks-MET detention goal 3: Pt to demonstrate R wrist extension to 60 degrees or more in order to engage in daily tasks-MET detention goal 4: Pt to be educated on carpal tunnel do's & dont's in order to prevent further repetitive injury to wrist-MET Time In: 835 Time Out: 915 Timed Coded Minutes: 40 Total Treatment Time: 40 THERESA Houser, OTR/L Date: 12/30/2021 documented in this encounter [employer] Phone: 12-23-2021 History of Present illness Narrative Images from the original note were not included. [facility] Evaluation Date: 12/23/2021 Patient: [...] completing these mvmts Left Hand Strength - Office Asst (lbs) Handle Setting 2: 54#, 50#, 53# (52.3# ave) Left Hand Strength - Pinch (lbs) Lateral: 13.5# Tip: 8# Palmar 3 point: 11# Right Hand Strength - Office Asst (lbs) Handle Setting 2: 53#, 54#, 53# [...] Time Frame for Short term goals: STG=LTG detention goals Time Frame for detention goals : 12 visits (01/24/2022) termite control servicer goal 1: pt to be indepenent in HEP detention goal 2: Pt to demonstrate R wrist flexion to 65 degrees or more in order 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 3: Pt to demonstrate R wrist extension to 60 degrees or more in order 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 4: Pt to be educated on carpal tunnel do's & dont's in order to prevent further repetitive injury to wrist Patient's Goal: pt wishes to return to prior function Time In: 830 Time Out: 924 Timed Coded Minutes: 0 Total Treatment Time: 54 THERESA Houser, OTR/L 12/23/2021 documented in this encounter [employer] Phone: Evaluation note Diagnosis Viral illness Unspecified viral infection, in conditions classified elsewhere and of unspecified site documented in this encounter [employer] Phone: evaluation note* Diagnosis Suspected COVID-19 virus infection documented in this encounter [employer] Phone: evaluation note* Diagnosis Acute cystitis with hematuria Acute cystitis documented in this encounter [employer] Phone: evaluation note* Diagnosis Difficult or painful urination Dysuria documented in this encounter [employer] Phone: evaluation note* Diagnosis Acute cystitis with hematuria Acute cystitis Recurrent UTI Urinary tract infection, site not specified documented in this encounter [employer] Phone: evaluation note* Diagnosis Frequent UTI Urinary tract infection, site not specified Urinary urgency Urgency of urination Urinary frequency documented in this encounter [employer] Phone: evaluation note* Diagnosis Frequent UTI Urinary tract infection, site not specified Urinary urgency Urgency of urination Urinary frequency documented in this encounter [employer] Phone: evaluation note* Diagnosis MRSA (methicillin resistant Staphylococcus aureus) septicemia (HCC) Methicillin resistant staphylococcus aureus septicemia documented [facility] this [facility] noteNo assessment information [facility] Work Phone: Evaluation note* Diagnosis Fatigue, unspecified type Encounter for screening for HIV Mixed hyperlipidemia Hyperglycemia Other abnormal glucose Chronic renal impairment, stage 3b (HCC) documented in this encounter [employer] Phone: evalmqthsw note* Diagnosis Acute cystitis with hematuria Acute cystitis documented in this encounter [employer] Phone: evaliwvhrh note* Diagnosis Neck mass Swelling, mass, or lump in head and neck documented in this encounter [employer] Phone: evalbnxaea note* Diagnosis Pain of foot, unspecified laterality Closed nondisplaced fracture of second metatarsal bone of left foot, initial encounter Closed nondisplaced fracture of lateral cuneiform of left foot, initial encounter documented in this encounter [employer] Phone: evalvzzhkj note* Diagnosis Foreign body (FB) in soft tissue Residual foreign body in soft tissue documented in this encounter [employer] Phone: evaltigyhd note* Diagnosis Pelvic pressure in female Other specified symptom associated with female genital organs documented in this encounter [employer] Phone: evalfdncau note* Diagnosis Charcot arthropathy of midfoot- Primary Gastrocnemius equinus, unspecified laterality Foot pain, left Pain in soft tissues of limb [facility] Diagnosis Mixed hyperlipidemia documented in this encounter [facility] Summary Purpose Family History No Family History [...] FoundDocuments on File Type Date Recorded Patient Spear Fisher Expl anation Advance Directives and Living Will Power of Plate Cutter Latest Code Status on File Code Status Date Activated Date Inactivated Comments Full Code 08/15/2018 4:17 PM 08/25/2018 8:55 PM Full Code 03/19/2017 1:37 PM 03/19/2017 4:32 PM Full Code 03/19/2017 10:57 AM 03/19/2017 1:37 PM Full Code 03/05/2017 12:56 PM 03/05/2017 3:55 PM Full Code 03/05/2017 10:05 AM 03/05/2017 12:56 PM Documents on File Type Date Recorded Patient Spear Fisher Expl anation ACP-Advance Directive ACP-Power of Plate Cutter Documents on File Type Date Recorded Patient Spear Fisher Expl anation ACP-Advance Directive ACP-Power of Plate Cutter Latest Code Status on File Code Status [...] Everywhere. * Back Care Basics: General Info ([place] Ver[place]an) * Back: Preventing Injuries ([place]) documented in this encounter Reason for Referral Status Reason Specialty Diagnoses / Procedures Referre d By Contact Referred To Contact Closed Radiology Diagnoses Brachial neuritis Peripheral nerve disorder Spasm of muscle Procedures MR Cervical Spine Without Contrast Tiffanie Casas MD [address] [address] Specialty Diagnoses / Procedures Referred By Contac t Referred To Contact Radiology Diagnoses Neck mass Procedures US HEAD NECK SOFT TISSUE THYROID Felipe Adam MD [address] [place] [address] Referral ID Status Reason Start Date Expiration Date Visits Re quested Visits Authorized [id number] Closed 05/27/2022 05/27/2023 1 1 Chief Complaint and Reason for Visit Chief Complaint M54.16 M79.10 M79.60 9 R20.9 Additional Source Comments INFORMATION SOURCE (unrecogn ized section and content) DATE CREATED AUTHOR 03/30/2018 [facility] DATE CREATED AUTHOR AUTHOR'S ORGANIZ ATION 03/30/2018 [facility] DATE CREATED AUTHOR AUTHOR'S ORGANIZ ATION 09/15/2018 [facility] DATE CREATED AUTHOR AUTHOR'S ORGANIZ ATION 09/23/2018 [facility] DATE CREATED AUTHOR AUTHOR'S ORGANIZ ATION 09/26/2018 [facility] DATE CREATED AUTHOR AUTHOR'S ORGANIZ ATION 12/10/2018 [facility] DATE CREATED AUTHOR AUTHOR'S ORGANIZ ATION 12/18/2018 [facility] DATE CREATED AUTHOR AUTHOR'S ORGANIZ ATION 02/11/2019 [facility] DATE CREATED AUTHOR AUTHOR'S ORGANIZ ATION 11/30/2021 [facility] DATE CREATED AUTHOR AUTHOR'S ORGANIZ ATION 02/21/2022 [facility] DATE CREATED AUTHOR AUTHOR'S ORGANIZ ATION 05/01/2022 Laurie Arias [facility] DATE CREATED AUTHOR AUTHOR'S ORGANIZ ATION 08/22/2022 [facility] DATE CREATED AUTHOR AUTHOR'S ORGANIZ ATION 01/12/2023 [facility] DATE CREATED AUTHOR AUTHOR'S ORGANIZ ATION 02/15/2023 [facility] DATE CREATED AUTHOR AUTHOR'S ORGANIZ ATION [facility] CREATED AUTHOR AUTHOR'S ORGANIZ ATION 04/04/2023 [facility] DATE CREATED AUTHOR AUTHOR'S ORGANIZ ATION 10/30/2023 [facility] EPIC DATE CREATED AUTHOR AUTHOR'S ORGANIZ ATION 02/12/2024 [facility] Reason for Visit (unrecogniz ed section and content) Status Reason Specialty Diagnoses / Procedures Referre d By Contact Referred To Contact Closed Radiology Diagnoses Brachial neuritis Peripheral nerve disorder Spasm of muscle Procedures MR Cervical Spine Without Contrast Tiffanie Casas MD [address] [place] [address] Specialty Diagnoses / Procedures Referred By Contac t Referred To Contact Occupational Therapy Diagnoses Carpal tunnel syndrome Carpal Tunnel Syndrome Procedures Eval and treat Keenan Lozano MD [address] [place] [id number] [facility] [address] [place] [address] Referral ID Status Reason Start Date Expiration Date Visits Re quested Visits Authorized [id number] Open 12/19/2021 12/19/2022 1 1 Specialty Diagnoses / Procedures Referred By Contac t Referred To Contact Physical Therapy Diagnoses Radiculopathy, lumbar region Lumbar Radiculopathy Procedures Eval and treat Janel Allen, DRUG PURCHASER - PASSENGER LOCOMOTIVE ENGINEER [address] [place] [address] [facility] [address] [place] [address] Referral ID Status Reason Start Date Expiration Date Visits Re quested Visits Authorized [id number] Open 12/19/2021 12/19/2022 1 1 Specialty Diagnoses / Procedures Referred By Contac t Referred To Contact Radiology Diagnoses Neck mass Procedures US HEAD NECK SOFT TISSUE THYROID Felipe Adam MD [address] [place] [phone] Referral ID Status Reason Start Date Expiration Date Visits Re quested Visits Authorized [id number] Closed 05/27/2022 05/27/2023 1 1 Specialty Diagnoses / Procedures Referred By Contac t Referred To Contact Radiology Diagnoses Pain of foot, unspecified laterality Closed nondisplaced fracture of lateral cuneiform of left foot, initial encounter Procedures MRI FOOT LEFT W WO CONTRAST MRI FOOT LEFT W WO CONTRAST Robbin Sánchez, DPM [address] [facility], [place] [address] Referral ID Status Reason Start Date Expiration Date Visits Re quested Visits Authorized [id number] Closed 06/20/2022 06/20/2023 1 1 Reason Comments Education Class Specialty Diagnoses / Procedures Referred By Thor t Referred To Contact Diabetes Services Diagnoses Pre-diabetes Felipe Adam MD [address] [place] [phone] [facility] [address] [place] [address] Referral ID Status Reason Start Date Expiration Date V isits Requested Visits Authorized [id number] Open Specialty Services Required 06/30/2022 06/30/2023 2 2 Specialty Diagnoses / Procedures Referred By Contac t Referred To Contact Diabetes Services Diagnoses Pre-diabetes Felipe Adam MD [address] [place] [address] [facility] [address] [place] [address] Reason Comments Other Left foot charcot on -going since 06/2022. New x-rays today. 2nd of opinion. Care Teams (unrecognized sec tion and content) Dispatcher Service Chief Relationship Specialty Start Date End Date Felipe Adam MD [address] [place] [phone] PCP - General Internal Medicine 11/14/11 Dispatcher Service Chief Relationship Specialty Start Date End Date Back, MD Felipe [address] [place] [address] PCP - General Internal Medicine 11/14/11 Dispatcher Service Chief Relationship Specialty Start Date End Date Back, MD Felipe [address] [place] [address] PCP - General Internal Medicine 11/14/11 Dispatcher Service Chief Relationship Specialty Start Date End Date Back, MD Felipe [address] [place] [phone] PCP - General Internal Medicine 11/14/11 Dispatcher Service Chief Relationship Specialty Start Date End Date Back, MD Felipe [address] [place] [address] PCP - General Internal Medicine 11/14/11 Dispatcher Service Chief Relationship Specialty Start Date End Date Back, MD Felipe [address] [place] [id number] PCP - General Internal Medicine 11/14/11 Dispatcher Service Chief Relationship Specialty Start Date End Date Back, MD Fel[address] [place] [id number] PCP - General Internal Medicine 11/14/11 Team Status: Inactive Member Role Status Dates NON STAFF Primary Care Provider Active Tiffanie Casas MD Attending Provider Active Team Status: Active Member Role Status Dates NON STAFF Primary Care Provider Active Dispatcher Service Chief Relationship Specialty Start Date End Date Back, MD Felipe [address] [place] [id number] PCP - General Internal Medicine 11/14/11 Dispatcher Service Chief Relationship Specialty Start Date End Date Back, MD Felipe [address] [place] [id number] PCP - General Internal Medicine 11/14/11 Dispatcher Service Chief Relationship Specialty Start Date End Date Back, MD [address] [place] [address] PCP - General Internal Medicine 11/14/11 Dispatcher Service Chief Relationship Specialty Start Date End Date Back, MD [address] [place] [address] PCP - General Internal Medicine 11/14/11 Dispatcher Service Chief Relationship Specialty Start Date End Date Back, MD Felipe [address] [facility], [place] [id number] PCP - General Internal Medicine 11/14/11 Dispatcher Service Chief Relationship Specialty Start Date End Date Back, MD [address]ipe [address] [place] [address] PCP - General Internal Medicine 11/14/11 Dispatcher Service Chief Relationship Specialty Start Date End Date Back, MD Felipe [address] [place] [id number] PCP - General Internal Medicine 11/14/11 Dispatcher Service Chief Relationship Specialty Start Date End Date Back, MD Felipe [address] [place] [id number] PCP - General Internal Medicine 11/14/11 Dispatcher Service Chief Relationship Specialty Start Date End Date Back, MD [address]ipe [address] [place] [address] PCP - General Internal Medicine 03/26/15 Dispatcher Service Chief Relationship Specialty Start Date End Date Back, MD Felipe [address] [place] [id number] PCP - General Internal Medicine 11/14/11 Goals [...] BE BASED ON THE PRIMARY CLINICAL RECORDS. [facility] provides no warranty or guarantee of the accuracy or completeness of information in this document.
[2024-02-15 06:13] LABS: Basophils Absolute Auto 0.1 10^3/uL (0.0-0.1); Basophils Percent Auto 0.9 % (0.2-2.0); Eosinophils Absolute Auto 0.1 10^3/uL (0.0-0.7); Eosinophils Percent Auto 1.2 % (0.9-7.0); Hematocrit 34.1 % (36.0-48.0); Hemoglobin 11.2 g/dL (12.0-16.0); Immature Granulocytes Abs Auto 0.12 10^3/uL (0.00-0.03); Immature Granulocytes Pct Auto 2.1 % (0.0-0.5); Lymphocytes Absolute Auto 1.8 10^3/uL (1.2-3.8); Lymphocytes Percent Auto 31.3 % (20.5-60.0); Mean Corpuscular HGB Conc 32.8 g/dL (29.9-35.2); Mean Corpuscular Hemoglobin 28.5 pg (26.7-34.0); Mean Corpuscular Volume 86.8 fL (81.0-99.0); Mean Platelet Volume 11.3 fL (9.5-13.5); Monocytes Absolute Auto 0.5 10^3/uL (0.3-0.8); Monocytes Percent Auto 8.2 % (1.7-12.0); Neutrophils Absolute Auto 3.3 10^3/uL (1.4-6.5); Neutrophils Percent Auto 56.3 % (43.0-75.0); Platelet Count 128 10^3/uL (150-450); Red Blood Count 3.93 10^6/uL (4.20-5.40); Red Cell Distribution Width 15.6 % (11.0-15.0); White Blood Count 5.8 10^3/uL (4.0-11.0)
[2024-02-15 06:22] LABS: Glucometer 143 mg/dL (74-106)
[2024-02-15] MEDS: LACTATED RINGER'S SOLUTION 1,000 ML 50 ML IV ×2 (06:55→10:19)
[2024-02-15] MEDS: VANCOMYCIN HCL 1,500 MG in 0.9 % SODIUM CHLORIDE 500 ML 250 MG IV ×2 (07:38→20:08)
[2024-02-15] MEDS: SURGIFOAM GEL SPONGE SIZE 100 1 EACH TOPICAL (10:20)
[2024-02-15] MEDS: VANCOMYCIN HCL 1,000 MG VIAL 1000 MG TOPICAL (11:25)
--- NOTE | 2024-02-15 11:28 | PM.ORONB ---
Brief Operative Note Date of procedure: 02/15/24 Pre-op diagnosis general: left midfoot Charcot, forefoot varus, rearfoot valgus, equinus, lateral rocker-bottom foot deformity with medial column subluxation Post-op diagnosis: same as pre-op Procedure: PROCEDURES PERFORMED: fusion of left midfoot with osteotomy, talonavicular and subtalar joints, tendo Achilles lengthening, ostectomy of 5th metatarsal base INDICATION FOR PROCEDURE: Patient is a 43-year-old female with idiopathic peripheral neuropathy and history of MRSA infection. She was referred to me for surgical consultation sometime ago at which time it was noted that she had a complex midfoot deformity with slight prominence of the cuboid plantarly. She hope to avoid surgery however her deformity only worsened and she was beginning to have pain on the plantar aspect of the cuboid. Fortunately her skin has remained intact and she did not have any history of ulceration. Most recent radiographs showed dorsal subluxation of the medial column consistent with a bayonet-type deformity as well as significant plantarflexion of the talus and negative cuboid height. Her radiographic findings were all highly concerning for ulceration development in addition to her instability noted clinically along the medial column. I discussed the potential risks and benefits of continued nonsurgical treatment and compared that to surgical treatment. She related to me that ideally she did not want to have to wear a [place] boot for her entire life time therefore elected to undergo the above procedures. Due to her history of MRSA in nares were cultured and were positive therefore Bactroban head and placed into her nostrils for the last four days as well as preoperative antibiotics were changed to vancomycin. She was educated on the postoperative course including timed nonweightbearing which will likely be anywhere from 10-12 weeks. INTRAOPERATIVE FINDINGS: findings consistent with diagnosis. Ankle joint dorsiflexionwas to neutral with the knee flexed and extended. Hindfoot valgus with plantar flexion of the talus and calcaneus. Instability and subluxation of the medial column. Non-plantigrade foot with lateral rocker bottom type deformity due to cuboid subluxation. Portions of the cuneiforms were soft and consistent with Charcot however much of the remaining bone after the biplanar resection had bone of reasonable quality and hardness. There is no signs of infection. PROCEDURE IN DETAIL: Patient was identified in pre op and consent was reviewed. Correct side and site were identified and marked. Pre-op antibiotics were started. Patient was brought to OR suite and place on table in a supine position. General anesthesia was administered. Tourniquet applied. Operative extremity was prepped and draped in usual sterile fashion. Formal time-out was performed and the foot/ankle were exsanguinated and tourniquet inflated. a triple hemisection tendo Achilles lengthening was performed with three separate stab incisions. Starting distal to the insertion stab incision was placed in the mid substance of the Achilles tendon in the medial half of the Achilles was released. Then the central stab incision was placed in the watershed area of the Achilles and the lateral half the Achilles was released. Finally an additional stab incision was placed just proximal to the 2nd and the medial half was released again. Ankle joint is able to be dorsiflexed to ten degrees past neutral. An incision from fibular malleolus to the cuboid was undertaken. Combination of sharp and blunt dissection gained access to the sinus tarsi. All bleeders were tied off or cauterized. EDB muscle was reflected and tagged for later approximation. Sinus tarsectomy was then performed. Hintermann distractor was used to access the subtalar joint which was prepped with curettes, osteotomes, rongeurs and drill with 2.0 mm drill.The posterior and the middle facet was thoroughly prepped. surggical site was irrigated with copious saline then Sparc bone allograft was packing into the joint. A longitudinal incision was placed on the posterior aspect of the calcaneal tuberosity as well as on the plantar central heel. A Steinmann pin was placed into the tuberosity and used as a joystick to reduce the talus and calcaneus. While I held reduction my special event assistant placed another Steinmann pin from the plantar aspect of the calcaneus across the talus and into the distal tibia to hold that the hindfoot out of equinus and valgus. Then the guidepin was placed accordingly under fluoroscopic guidance and an 8.0 mm headless fully threaded was placed according to manufacture's direction noting compression at the subtalar joint. A Steinmann pin that was used as a joystick was removed. incision was placed on the medial aspect of the hindfoot extending the length of the medial column to the 1st metatarsal base taking care to preserve the tibialis anterior tendon insertion. Comminution sharp and blunt dissection gained access to the talonavicular joint in the posterior tibial tendon was excised from the navicular tuberosity. Further dissection allowed all soft tissue to be removed from the medial aspect of the navicular and medial cuneiform. A patient specifically three printed cut guide was provisionally placed to ensure adequate exposure. Then dissection was taken both dorsally and plantarly laterally across the midfoot. The subtalar joint incision was extended past the 4th and 5th metatarsal bases and meticulous dissection was performed bluntly dorsally and plantarly to allow the medial and lateral incisions to communicate. Revision retractors were placed to protect the soft tissues dorsally and plantarly. Cut guide was then placed in the ideal position and was confirmed on preoperative planning. Cut guide was then pinned with K wires all of which were placed bicortically exiting the lateral incision. The cut guide was removed and then a sagittal saw was used to perform an osteotomy along the distal row of wires. Then an additional osteotomy was placed along the proximal row of wires creating a biplanar wedge. The osteotomy was finished with osteotomes. The wedge was then removed and passed the back table to be sent as specimen. The medial and central columns could be now reduced with good bony apposition. there was some remaining cartilage noted on the medial aspect of the talar head which was removed with curettes and osteotomes. The incision along the medial column was then extended over the 1st metatarsal phalangeal joint. Dissection allowed the capsule to be opened and the 1st metatarsal head to be exposed by plantar flexing the great toe. A guidewire was placed from the 1st metatarsal head with fluoroscopic guidance and was drilled proximally through the canal of the 1st metatarsal. I then held the medial and central columns reduced noting plantigrade foot alignment on the table and good bony apposition noted on fluoroscopy at which time my special event assistant advanced the wire into the talus. Then a 6.5 mm partially-threaded double was placed accordingly spanning the entire medial column. Stability was achieved. surgical sites were irrigated with copious saline and the tourniquet was deflated with a prompt hyperemic response. Incisions were temporarily closed with traci. While the limb was reperfusing the Steinmann pin from the plantar heel was removed surgical site was irrigated this incision was closed in a single layer. The subtalar screw was then advanced to void being prominent on the calcaneal tuberosity. The surgical site was also irrigated then closed in a single layer. Next, two stab incisions were placed over the dorsal central and dorsal lateral foot and blunt dissection was taken down to the 2nd and 3rd metatarsal bases respectively. A guidewire was placed from the 2nd met base across the osteotomy and into the talar body and was confirmed on fluoroscopy. A 5.0 mm fully threaded beam was then placed accordingly adding stability to the central column. Similarly an additional 5.0 mm fully threaded beam was placed from the 3rd metatarsal base and into the talar head over the guidewire accordingly. the medial column and central columns were stressed were notably stable. The foot was plantigrade on the table and there is good bony apposition noted on fluoroscopy across the medial and central columns. The stab incisions were irrigated then closed in a single layer. At this point in time adequate time had passed to allow for the tourniquet. Reinflated therefore the extremity was exsanguinated and tourniquet reinflated. D Hanis allow for temporary closure were removed and the surgical sites were irrigated. The 5th metatarsal base was then contoured to avoid any prominence with a sagittal saw. Any remaining bone graft was then packed along the medial head of the talus and over the osteotomy site. Similarly bone graft was packed from the lateral incision into the sinus tarsi and around the osteotomy site. The incisions were then closed in layers and a tourniquet was dropped noting a prompt hyperemic response. The tourniquet was dropped and a prompt hyperemic response was noted. A dry sterile dressing consisting of Xeroform on the incisions followed by 4 x 4 gauze, ABDs, and Kerlix were applied. Multiple layers of cast padding were then applied to ensure all bony prominences were well-padded. A plaster posterior splint was then applied which was held in place by Jose Luis wraps. Capillary refill time to all digits was evaluated and had appropriate response. Patient tolerated the procedure and anesthesia well and was transported to the recovery room with vital signs stable. 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
--- NOTE | 2024-02-15 12:37 | XR_ITS ---
The [address] [address] Patient Name: CHASTITY GASPAR MRN: [id number] date: 1980 Sex: F Assigned Patient Location: [facility] Current Patient Location: [place] Accession/Order Number: [id number] Exam Date: 02/15/2024 12:57 Report Date: 02/15/2024 15:05 At the request of: TAMMI QUIÑONES Procedure: XR foot LT min 3V PROCEDURE: XR ankle LT min 3V, XR foot LT min 3V COMPARISON: 03/17/2023 HISTORY: postop xr pacu FINDINGS: BONES:Marked degenerative changes of the midfoot with extensive bony remodeling consistent with neuropathic osteoarthropathy. Interval subtalar fusion with a single screw. Interval fusion of the first second and third digits with screws extending from the metatarsals into the talus. SOFT TISSUES:Soft tissue swelling. Postsurgical subcutaneous emphysema EFFUSION:None visible. OTHER: Negative. XR/XR foot LT min 3V IMPRESSION: Postsurgical changes Electronically authenticated by: EMILY ELY Date: 02/15/2024 15:05
--- NOTE | 2024-02-15 12:37 | XR_ITS ---
The [address] [address] Patient Name: CHASTITY GASPAR MRN: [id number] date: 1980 Sex: F Assigned Patient Location: [facility] Current Patient Location: [place] Accession/Order Number: [id number] Exam Date: 02/15/2024 12:57 Report Date: 02/15/2024 15:05 At the request of: TAMMI QUIÑONES Procedure: XR ankle LT min 3V PROCEDURE: XR ankle LT min 3V, XR foot LT min 3V COMPARISON: 03/17/2023 HISTORY: postop xr pacu FINDINGS: BONES:Marked degenerative changes of the midfoot with extensive bony remodeling consistent with neuropathic osteoarthropathy. Interval subtalar fusion with a single screw. Interval fusion of the first second and third digits with screws extending from the metatarsals into the talus. SOFT TISSUES:Soft tissue swelling. Postsurgical subcutaneous emphysema EFFUSION:None visible. OTHER: Negative. XR/XR ankle LT min 3V IMPRESSION: Postsurgical changes Electronically authenticated by: EMILY ELY Date: 02/15/2024 15:05
[2024-02-15 12:41] LABS: Glucometer 177 mg/dL (74-106)
[2024-02-15 16:52] LABS: Glucometer 141 mg/dL (74-106)
[2024-02-15] MEDS: NORTRIPTYLINE HCL 25 MG CAPSULE PO (20:07)
[2024-02-15] MEDS: PREGABALIN 100 MG CAPSULE 300 MG PO (20:07)
[2024-02-15] MEDS: BACLOFEN 10 MG TABLET 20 MG PO (20:07)
[2024-02-15] MEDS: ROPINIROLE HCL 0.25 MG TABLET 0.5 MG PO (20:07)
[2024-02-15] MEDS: GEMFIBROZIL 600 MG TABLET PO (20:07)
[2024-02-15] MEDS: CALCIUM CARBONATE 600 MG/VITAMIN D3 400 IU TABLET 1 TAB PO (20:07)
[2024-02-15] MEDS: FAMOTIDINE 20 MG TABLET PO (20:08)
[2024-02-15 20:12] LABS: Glucometer 136 mg/dL (74-106)
[2024-02-15] MEDS: ENOXAPARIN SODIUM 40 MG/0.4 ML SYRINGE SUBQ (21:29)
[2024-02-15] MEDS: PROPRANOLOL HCL 20 MG TABLET 10 MG PO (21:29)
[2024-02-15] MEDS: MONTELUKAST SODIUM 10 MG TABLET PO (21:29)
[2024-02-15] MEDS: SERTRALINE HCL 100 MG TABLET 200 MG PO (21:29)
[2024-02-16 03:50] VITALS: O2SAT 96
[2024-02-16 04:11] VITALS: BP 133/73; PULSE 74; TEMP 36.8; O2SAT 96
[2024-02-16 07:54] LABS: Glucometer 113 mg/dL (74-106)
[2024-02-16 07:59] VITALS: BP 120/80; PULSE 80; TEMP 36.7; O2SAT 96
[2024-02-16] MEDS: VANCOMYCIN HCL 1,500 MG in 0.9 % SODIUM CHLORIDE 500 ML 250 MG IV (08:25)
[2024-02-16] MEDS: OXYCODONE HCL 5 MG TABLET PO ×2 (08:26→14:28)
[2024-02-16] MEDS: GEMFIBROZIL 600 MG TABLET PO (08:26)
[2024-02-16] MEDS: PREGABALIN 100 MG CAPSULE 300 MG PO (08:26)
[2024-02-16] MEDS: FAMOTIDINE 20 MG TABLET PO (08:26)
[2024-02-16] MEDS: CALCIUM CARBONATE 600 MG/VITAMIN D3 400 IU TABLET 1 TAB PO (08:26)
[2024-02-16] MEDS: ROPINIROLE HCL 0.25 MG TABLET 0.5 MG PO (08:26)
[2024-02-16] MEDS: THIAMINE MONONITRATE (VIT B1) 100 MG TABLET PO (08:27)
[2024-02-16] MEDS: ALENDRONATE SODIUM 70 MG TABLET PO (08:29)
--- NOTE | 2024-02-16 09:04 | P.PN_ITS ---
Progress Note: Subjective Subjective Interval history: Patient seen resting comfortably bedside chair this a.m. POD #1 s/p left Charcot reconstruction with midfoot fusion and osteotomy, tendo Achilles lengthening and fifth metatarsal exostectomy, DOS 02/15/2024. Denies any acute events overnight. States her pain was well-controlled, however this morning after getting to the chair she began experiencing increased tenderness to the CARL site, denies pain in the mid or forefoot. Denies any other acute lower extremity complaints denies any constitutional symptoms at time of visit. Exam Narrative Exam Narrative: LLE splint left CDI. CFT intact to digits. No erythema or edema proximal distal dressing. Light touch sensation absent to digits, active range of motion of digits absent. Compartments soft compressible, no pain with calf or thigh compression. Constitutional Vital Signs, click to edit/add: Last Vital Signs Temp 98.1 F 02/16/24 07:59 Pulse 80 02/16/24 07:59 Resp 16 02/16/24 07:59 BP 120/80 02/16/24 07:59 Pulse Ox 96 02/16/24 07:59 O2 Del Method Room Air 02/16/24 07:59 O2 Flow Rate 0.5 02/15/24 20:13 Progress Note: A&P Assessment and Plan (1) Charcot arthropathy of midfoot: (2) History of MRSA infection: (3) Risk for falls: (4) Idiopathic peripheral neuropathy: Plan Patient examined and evaluated. All findings discussed with patient all questions answered to patient's satisfaction. . Pertinent labs and imaging reviewed. Left lower extremity splint left CDI. Leave until follow-up. Continue nonweightbearing left lower extremity. Patient has knee scooter, requesting wheelchair prescription as well. Anticipate DC home. Postop scripts sent to patient's pharmacy on file. Nerve block still appears to be effective, discussed that as the block begins to wear off today, may experience some rebound pain. If her pain is well- controlled with oral medication she may discharge this evening or tomorrow. Rest per primary, please call questions or concerns. Urinary Catheter Management Urinary Catheter Management Urethral: Cath placed during this visit: no
--- NOTE | 2024-02-16 10:05 | PM.PN ---
Progress Note: Subjective Subjective Interval history: Patient seen resting comfortably bedside chair this a.m. POD #1 s/p left Charcot reconstruction with midfoot fusion and osteotomy, tendo Achilles lengthening and fifth metatarsal exostectomy, DOS 02/15/2024. Denies any acute events overnight. States her pain was well-controlled, however this morning after getting to the chair she began experiencing increased tenderness to the CARL site, denies pain in the mid or forefoot. Denies any other acute lower extremity complaints denies any constitutional symptoms at time of visit. Exam Constitutional Vital Signs, click to edit/add: Last Vital Signs Temp 98.1 F 02/16/24 07:59 Pulse 80 02/16/24 07:59 Resp 16 02/16/24 07:59 BP 120/80 02/16/24 07:59 Pulse Ox 96 02/16/24 07:59 O2 Del Method Room Air 02/16/24 07:59 O2 Flow Rate 0.5 02/15/24 20:13 Progress Note: A&P Assessment and Plan (1) History of MRSA infection: (2) Risk for falls: (3) Idiopathic peripheral neuropathy: Urinary Catheter Management Urinary Catheter Management Urethral: Cath placed during this visit: no
--- NOTE | 2024-02-16 10:19 | SWNOTE1 ---
SW received a call from podiatry, Holland Ray, and he asked about a wheelchair for pt and if he should print a script off [employer] or write a script for chart. SW let him know to leave a script and that he will have to document need for wheelchair. He voiced understanding.
--- NOTE | 2024-02-16 10:55 | CM.NOTE ---
Rounds made with Dr. Freeman. Potential discharge later today depending on pain control. Ms. Egan verbalizes understanding.
[2024-02-16 11:15] LABS: Glucometer 121 mg/dL (74-106)
[2024-02-16] MEDS: ACETAMINOPHEN 500 MG TABLET 1000 MG PO (11:20)
--- NOTE | 2024-02-16 11:50 | SWNOTE1 ---
SW met with pt to discuss dc needs. Pt's daughter in room as well. Pt lives at home with her and her 2 kids who are 16 and 19. Pt will be staying on the first floor and has bathroom and bed downstairs. Pt had surgery last year and was NWB as well. She has used knee scooter in past and is familiar with it. SW and pt/daughter spoke about wheelchair. They voiced wheelchair was recommended just to get her in home. SW offered to pt and daughter guidelines from [employer] (pt's insurance) in regards to qualifying for wheelchair and having insurance pay. At this time pt does not qualify for insurance to pay for wheelchair. SW voiced that we can attempt, but it is likely no. Pt and family voiced they do not need SW to do that and they are reaching out to family and friends in regards to wheelchair. Pt's went to [facility] to check and they have reached out to [facility] as well. Pt and daughter stated they would have just used it to get her in and once she is in she will stay inside and family is all going to assist at home. SW did let pt and daughter know that nurse practitioner will be back in later today to re-assess in regards to discharge today. They voiced understanding and had no other needs.
--- NOTE | 2024-02-16 12:19 | P.PN_ITS ---
<Statement entered by Augusto Freeman MD - 02/16/24 21:10> Patient seen and examined, agree with assessment and plan below. Developed Charcot deformity causing increased pain and elected to have surgical repair. Admitted after surgery and did well. Worked with PT and ambualted well. Pain tolerable. Discharged home in stable condition. Resume home medication as directed. Follow up with podiatry in 1-2 weeks. Diagnosis: 1. Charcot deformity left foot 2. Neuropathy 3. Prediabetes 4. CKD 3a 5. History of MRSA 6. Fall risk Progress Note: Subjective Subjective Interval history: 02/16/24 [id number] The patient is resting comfortably in bed at the time of my exam, having just completed working with PT successfully. She is able to use her scooter without difficulty. She has POD #1 after left Charcot reconstruction with midfoot fusion and osteotomy, tendo Achilles lengthening, and fifth metatarsal exostectomy per Dr Chase. She denies any other complaints such as chest pain, shortness of breath, or N/V/D. Her pain is minimal at this time and she notes chronic peripheral neuropathy with little to no sensation of her bilateral feet at baseline. There is still a possibility that a nerve block is not completely worn off. If she remains with well-controlled pain on oral medications this afternoon, she will likely be discharged home. Exam Constitutional Vital Signs, click to edit/add: Last Vital Signs Temp 98.1 F 02/16/24 07:59 Pulse 80 02/16/24 07:59 Resp 16 02/16/24 07:59 BP 120/80 02/16/24 07:59 Pulse Ox 96 02/16/24 07:59 O2 Del Method Room Air 02/16/24 07:59 O2 Flow Rate 0.5 02/15/24 20:13 Common normals: no apparent distress, oriented x3 and alert General appearance: cooperative Orientation/consciousness: Yes awake HENSD Common normals: normocephalic, head/scalp atraumatic and hearing grossly normal bilaterally Eye Common normals: PERRL, EOMs intact bilaterally, conjunctivae normal and no scleral icterus General eye: normal appearance of both eyes Chest Common normals: inspection of chest normal Chest: symmetrical chest wall rise Respiratory Common normals: normal respiratory effort, no use of accessory muscles and clear to auscultation bilaterally Effort & inspection: able to speak in complete sentences Cardio Common normals: regular rate, regular rhythm, S1 normal heart sound, S2 normal heart sound and peripheral pulses 2+ throughout Heart sounds: murmur (HSm 2/6) GI Common normals: Normal to inspection, nondistended, normoactive bowel sounds present, soft to palpation, non-tender and no hepatosplenomegaly Bladder/kidney exam: bladder normal to palpation Extremity Common normals: normal to inspection and no calf tenderness General: no clubbing, no cyanosis and no edema Neuro Common normals: CN's II-XII intact bilaterally, moves all extremities, no focal motor deficits and no sensory deficits noted Sensory exam: extremities (BLE mid patel to toes w/ chronic paresthesias d/t PN) Psych Common normals: mental status grossly normal Progress Note: A&P Assessment and Plan (1) Status post left foot surgery: Assessment and Plan: Acute * Adm inpatient to the hospitalist service * POD #[address] Chase for charcot foot * See operative note and H&P for surgical details and clinical course leading to this operative repair * Defer pain management, PT/OT orders, WB status, post op IVF & ABX to the podiatry team * Possible D/C later today as pt recovering faster than expected and has adequate pain control and mobility (2) Idiopathic peripheral neuropathy: Assessment and Plan: Chronic * Continue home gabapentin (3) GERD (gastroesophageal reflux disease): Assessment and Plan: Chronic * Continue home famotidine (4) Migraine: Assessment and Plan: Chronic * Continue home nortriptyline (5) Back pain with history of spinal surgery: Assessment and Plan: Chronic * Continue home baclofen, tizanidine, requip, propranolol (6) PTSD (post-traumatic stress disorder): Assessment and Plan: Chronic * Continue home sertraline Urinary Catheter Management Urinary Catheter Management Urethral: Cath placed during this visit: no
[2024-02-16 14:27] VITALS: BP 115/79; PULSE 91; TEMP 36.7; O2SAT 93
--- NOTE | 2024-02-17 12:34 | CM.DCFOLLOWU ---
1st attempt, no answer 02/17/24
--- NOTE | 2024-02-18 11:47 | CM.DCFOLLOWU ---
2nd attempt, no answer 02/18/24
--- NOTE | 2024-02-19 15:09 | CM.DCFOLLOWU ---
Person spoke with: patient How are you feeling? well How is your pain? no pain Did you understand your discharge instructions? yes Do you have any questions about your discharge instructions? no Were you given any prescriptions at discharge? yes Were you able to get your prescriptions filled? yes Do you understand how to take your medications as ordered? yes Do you have any questions about your follow up appointment and do you plan to keep your follow up appointment? No questions, Follow up 02/23/[address] Chase Is there anything else that you would like to discuss? no Questions/Comments/Concerns/Other: N/A
== END 2024-02-16 14:40 | disposition home or self-care (01) | DRG 42 ==
LOC: MS 13:31
PROVIDERS: Podiatrist Foot & Ankle Surgery; Admitting Provider Family Medicine; Visit Provider Nurse Practitioner
PROC: 0QBP0ZZ Excision of Left Metatarsal, Open Approach (ICD-10-PCS; principal; 2024-02-15 07:30)
DX: A52.16 Charcot's arthropathy (tabetic) (principal); G60.9 Hereditary and idiopathic neuropathy, unspecified; M21.172 Varus deformity, not elsewhere classified, left ankle; N18.31 Chronic kidney disease, stage 3a; R73.03 Prediabetes; E78.1 Pure hyperglyceridemia; F32.A Depression, unspecified; K21.9 Gastro-esophageal reflux disease without esophagitis; G43.909 Migraine, unspecified, not intractable, without status migrainosus; F43.10 Post-traumatic stress disorder, unspecified; M54.9 Dorsalgia, unspecified; G89.29 Other chronic pain; F41.0 Panic disorder [episodic paroxysmal anxiety]; M19.072 Primary osteoarthritis, left ankle and foot; M24.572 Contracture, left ankle; Z87.440 Personal history of urinary (tract) infections; Z86.14 Personal history of Methicillin resistant Staphylococcus aureus infection; Z83.3 Family history of diabetes mellitus; Z79.899 Other long term (current) drug therapy; Z88.8 Allergy status to other drugs, medicaments and biological substances; Z91.81 History of falling
CPT/HCPCS: 36415; 64445; 64447; 73610; 73630; 76000; 82948; 85025; 88305; 94761; 96365; 96366; 96372; 97162; C1713; J1094; J1170; J2704; J3370

== ENCOUNTER 2024-03-07 13:16 | Outpatient (OUT) | payer BC, SELFPAY ==
--- NOTE | 2024-03-07 | XR_ITS ---
The [address] [address] Patient Name: CHASTITY GASPAR MRN: [id number] date: 1980 Sex: F Assigned Patient Location: Current Patient Location: Accession/Order Number: [id number] Exam Date: 03/07/2024 13:20 Report Date: 03/08/2024 11:57 At the request of: FRANCES HARRIS Procedure: XR foot LT min 3V PROCEDURE: XR foot LT min 3V HISTORY: LEFT FOOT PAIN COMPARISON: XR foot left 02/15/2024 FINDINGS: BONES:Advanced degenerative changes the midfoot with partial resection and subsequent mechanical fusion of the hindfoot and forefoot. No appreciable hardware fracture or loosening. No appreciable change in alignment. SOFT TISSUES:Prominent soft tissue swelling surrounding the foot. EFFUSION:None visible. OTHER: Negative. XR/XR foot LT min 3V IMPRESSION: 1. Stable surgical changes without evidence of hardware failure or change in alignment. 2. Prominent soft tissue swelling. Electronically authenticated by: PIPER MERCEDES Date: 03/08/2024 11:57
== END 2024-03-07 13:17 | disposition home or self-care (01) ==
LOC: EC 13:20
PROVIDERS: Visit Provider Podiatrist Foot & Ankle Surgery
DX: M79.672 Pain in left foot (principal); Z98.890 Other specified postprocedural states; M25.475 Effusion, left foot
CPT/HCPCS: 73630

== ENCOUNTER 2024-03-23 12:57 | Outpatient (OUT) | payer BC, SELFPAY ==
--- NOTE | 2024-03-23 | XR_ITS ---
The [address] [address] Patient Name: CHASTITY GASPAR MRN: [id number] date: 1980 Sex: F Assigned Patient Location: Current Patient Location: Accession/Order Number: [id number] Exam Date: 03/23/2024 13:05 Report Date: 03/28/2024 06:59 At the request of: TAMMI QUIÑONES Procedure: XR foot LT min 3V PROCEDURE: XR foot LT min 3V COMPARISON: 03/07/2024 HISTORY: LEFT FOOT PAIN FINDINGS: BONES:Stable severe degenerative and postsurgical changes of the midfoot with marked bony remodeling. Fusion hardware with screw across the posterior subtalar joint across the first second and third tarsometatarsal joints distally proximal. No change in angulation or evidence of mechanical failure SOFT TISSUES:Negative. No visible soft tissue swelling. EFFUSION:None visible. OTHER: Negative. XR/XR foot LT min 3V IMPRESSION: Stable severe degenerative postsurgical changes Electronically authenticated by: EMILY ELY Date: 03/28/2024 06:59
== END 2024-03-23 12:58 | disposition home or self-care (01) ==
LOC: EC 12:57
PROVIDERS: Visit Provider Podiatrist Foot & Ankle Surgery
DX: M79.672 Pain in left foot (principal); Z98.890 Other specified postprocedural states
CPT/HCPCS: 73630

== ENCOUNTER 2024-04-06 10:30 | Outpatient (OUT) | payer BC, SELFPAY ==
--- NOTE | 2024-04-06 | XR_ITS ---
The [address] [address] Patient Name: CHASTITY GASPAR MRN: [id number] date: 1980 Sex: F Assigned Patient Location: Current Patient Location: Accession/Order Number: [id number] Exam Date: 04/06/2024 10:40 Report Date: 04/08/2024 09:45 At the request of: FRANCES HARRIS Procedure: XR foot LT min 3V PROCEDURE: XR foot LT min 3V HISTORY: LEFT FOOT PAIN COMPARISON: XR foot left 03/23/2024 FINDINGS: BONES:Advanced degenerative changes of the midfoot with prior midfoot and hindfoot fusion. Prominent lucency around the posterior aspect of the calcaneal screw compatible with movement. SOFT TISSUES:No visible soft tissue swelling. EFFUSION:None visible. OTHER: Negative. XR/XR foot LT min 3V IMPRESSION: 1. Stable advanced degenerative changes and stable surgical changes. 2. No appreciable change or increase in lucency surrounding posterior aspect of the calcaneal screw. Electronically authenticated by: PIPER MERCEDES Date: 04/08/2024 09:45
== END 2024-04-06 10:31 | disposition home or self-care (01) ==
LOC: EC 10:30
PROVIDERS: Visit Provider Podiatrist Foot & Ankle Surgery
DX: M79.672 Pain in left foot (principal); Z98.890 Other specified postprocedural states
CPT/HCPCS: 73630

== ENCOUNTER 2024-04-12 15:40 | Outpatient (OUT) | payer BC, SELFPAY | END 2024-04-12 15:41 | disposition home or self-care (01) | LOC: WC 15:40 | PROVIDERS: Visit Provider Podiatrist Foot & Ankle Surgery | DX: E11.622 Type 2 diabetes mellitus with other skin ulcer (principal); L97.325 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 without evidence of necrosis; T81.31XA Disruption of external operation (surgical) wound, not elsewhere classified, initial encounter | CPT/HCPCS: 11043; 29445; G0463 ==

== ENCOUNTER 2024-04-14 08:00 | Outpatient (OUT) | payer BC, SELFPAY | END 2024-04-14 08:01 | disposition home or self-care (01) | LOC: WC 04-19 09:28 | PROVIDERS: Visit Provider Physician Assistant | DX: E11.622 Type 2 diabetes mellitus with other skin ulcer (principal); L97.325 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 without evidence of necrosis; T81.31XA Disruption of external operation (surgical) wound, not elsewhere classified, initial encounter | CPT/HCPCS: 29445 ==

== ENCOUNTER 2024-04-20 15:03 | Outpatient (OUT) | payer BC, SELFPAY | END 2024-04-20 15:04 | disposition home or self-care (01) | LOC: WC 15:04 | PROVIDERS: Visit Provider Podiatrist Foot & Ankle Surgery | DX: E11.622 Type 2 diabetes mellitus with other skin ulcer (principal); L97.325 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 without evidence of necrosis; T81.31XA Disruption of external operation (surgical) wound, not elsewhere classified, initial encounter | CPT/HCPCS: 11043; 29445 ==

== ENCOUNTER 2024-04-27 10:35 | Outpatient (OUT) | payer BC, SELFPAY ==
--- NOTE | 2024-04-27 | XR_ITS ---
The [address] [address] Patient Name: CHASTITY GASPAR MRN: [id number] date: 1980 Sex: F Assigned Patient Location: Current Patient Location: Accession/Order Number: [id number] Exam Date: 04/27/2024 10:35 Report Date: 04/28/2024 07:26 At the request of: FRANCES HARRIS Procedure: XR foot LT min 3V PROCEDURE: XR foot LT min 3V COMPARISON: 04/06/2024 HISTORY: LEFT FOOT PAIN FINDINGS: BONES:Marked degenerative postsurgical changes of the midfoot with bony destruction. Stable fusion with a single screw across the first second and third tarsometatarsal joints with the first metatarsal screw extending into the talus. Subtalar fusion. Plantar enthesopathic spurring of the calcaneus. No significant bone formation is observed SOFT TISSUES:Negative. No visible soft tissue swelling. EFFUSION:None visible. OTHER: Negative. XR/XR foot LT min 3V IMPRESSION: Stable neuropathic osteoarthropathy and postsurgical changes with no interval bone formation Electronically authenticated by: EMILY ELY Date: 04/28/2024 07:26
--- OUTSIDE RECORDS SUMMARY | 2024-04-27 10:50 | XMS_ITS | CCD ---
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 Attending Provider [phone] Back , Felipe Primary Care Provider YOON COBB Referring Unavailable BACK, FELIPE Primary Care Unavailable Back , Felipe Primary Care Provider KALPESH ARENAS Attending Unavail able BACK, FELIPE Primary Care Unavailable Back , Felipe Primary Care Provider FRANCES HARRIS Admitting Unavailable HIGHLFRANCES HERNANDEZ Attending Unavailable FRANCES HARRIS Consulting Unavailable FRANCES HARRIS Admitting Unavailable HIGHLFRANCES HERNANDEZ Attending Unavailable [facility], DR PIPER Ackerman Consulting Unavailable HIGHLANDERFRANCES Consulting Unavailable HIGHLFRANCES HERNANDEZ Admitting Unavailable HIGHLFRANCES HERNANDEZ Attending Unavailable [facility], DR EMILY Riojas Consulting Unavailable HIGHLANDERFRANCES Consulting Unavailable Back , Felipe Primary Care Provider [phone] ROBBIN SHOOK II Admitting Un available HASSMANN II, ROBBIN DAHL Referring Un available BACK, FELIPE Primary Care Unavailable HASSMANN IIROBBIN Attending Un available BACK, FELIPE Primary Care Unavailable BACK, FELIPE Primary Care Unavailable HASSMANN II, ROBBIN DAHL Attending Un available Back , Felipe Primary Care Provider [phone] TIFFANIE CASAS Attending Unavailable TIFFANIE CASAS Attending Unavailable Highlander, INDER Weston Attending Provider [phone] Frances Harris Attending Unavailable Frances Harris Admitting Unavailable CAPO TIFFANIE Referring Unavailable BACK, FELIPE Primary Care Unavailable BACK, FELIPE Referring Unavailable BACK, FELIPE Primary Care Unavailable JERICA KRISHNAMURTHY Referring Unavailable BACK, FELIPE Primary Care Unavailable BACK, FELIPE Referring Unavailable BACK, FELIPE Primary Care Unavailable BACK, FELIPE Referring Unavailable BACK, FELIPE Primary Care Unavailable CASASCLAUDIATIFFANIE Referring Unavailable BACK, FELIPE Primary Care Unavailable BACK, FELIPE Referring Unavailable BACK, FELIPE Primary Care Unavailable BACK, FELIPE Referring Unavailable BACK, FELIPE Primary Care Unavailable Allergies Allergy Classification Reported Allergen(s) Allergy Type Date of Onset Reaction(s) Facility (3 sources) Chlorhexidine; Translations: [CHLORHEXIDINE] Drug Allergy 03-03-2023 Rash [facility] Medications Current Medications Medication Drug Class(es) [...] Start: 01-14-2023 take 1 capsule by mo ut once daily in the morning amphetamine-dextroamphetamine (ADDERALL [...] oral tablet (1 source) alpha-Adrenergic Agonist, Uncompetitive Y-hoflao-C-aspartat e Receptor Antagonist, Sigma-1 Agonist Start: 02-13-2021 [...] Start: 08-25-2018 take 1 capsule by [facility] three times daily pregabalin (LYRICA) 150 MG [...] Start: 07-30-2020 take 2 tablets by [facility] once daily sertraline (ZOLOFT) 100 MG tablet Take 2 tablets by mouth daily Currently decreasing this medication 0 07/30/2020 Active Start: 07-30-2020 [facility] sertraline (ZOLOFT) 100 MG tablet Take 100 mg by mouth daily Currently decreasing this medication 0 07/30/2020 Active Start: 07-06-2019 take 2 tablets by mo [facility] once daily sertraline (ZOLOFT) 50 MG tablet [...] acquired deformities of unspecified lower leg] Onset: 3 Episodic Other circulatory disease (4 sources) [...] of skin] Onset: 02-05-2018 08-03-2017 Episodic 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 infection and poliomyelitis (20 sources) Extradural [...] Test Name Value Interpretation Reference Range Facility [facility] 02-15-2024 L Specimen: [id number] Received: 02/16/24 Status: ARLEN Dumont Num: [id number] Spec Type: Surgical Subm Dr: Frances Harris DPM, MS Tissues: A Soft Tissue/Surgical Margin-Other than Tumor,Mass,Lip or Becka (LT MID FOOT CH Procedures: HE/2, Gross/Micro L4 Age/ Patient Sex Location Account Attending Physician Celina Gaspar 43/F LABELL [id number] Frances Harris DPM, MS SPEC NUM: [id number] RECD: 02/16/24 STATUS: [facility] NUM: [id number] MAYTE: 02/15/[address]: Frances Harris DPM, MS ENTERED: 02/16/24 [facility] DR: Ursula,Lab SPEC TYPE: Surgical DEPT: DEANA YEAGER ORDERED: HE/2, Gross/Micro L4 ORDERED: HE/2, Gross/Micro L4 Pathological Diagnosis Left midfoot, resection: Bone and soft tissue, unremarkable. Gross Description Received in formalin, labeled with the patient's name, date of and left midfoot charcot are 3 fragments of irregularly-shaped bone with adherent diaz-white soft tissue altogether measuring 6.9 x 5.2 x 1.3 cm. The articular cartilage present is unremarkable. Cut sections reveal firm, yellow spongy bone matrix. Plant Operator Helper sections are submitted following decalcification in A1?A2. Clinical history: varus deformity left ankle, charcot join left ankle and foot. CPT Codes 68817 -------- -------- Specimen: [id number] Received: 02/16/24 Status: ARLEN Dumont Num: [id number] Spec Type: Surgical Subm Dr: Frances Harris,DPMónica, MS Tissues: A Soft Tissue/Surgical Margin-Other than Tumor,Mass,Lip or Becka (LT MID FOOT CH Procedures: HE/Stefan, Gross/Micro L4 -------- Patient: Gaspar,Amy M [id number] (Continued) -------- Signed (signature on file) Juan José Yu MD 02/17/24 1549 Normal [facility] CBC with Diffon 01-29-2024 Abs. Basophil 0.04 k/uL Normal 0.00-0.20 [facility] Comment on above: Performed By: #### L DLDIR, LIPR, GLYHGB #### [address] [id number] Operations Manager/Coordinator: Placido Pierce MD #### CDP, CP, ZFAST, TSHX #### [facility] [address] [place] [address] Operations Manager/Coordinator: Emily George MD Abs.Imm.Granulocyte 0.12 k/uL Normal 0.00-0.30 [facility] Comment on above: Performed By: #### L DLDIR, LIPR, GLYHGB #### [place] [id number] Operations Manager/Coordinator: Placido Pierce MD #### CDP, CP, ZFAST, TSHX #### [facility] [address] [place] [address] Operations Manager/Coordinator: Emily George MD Abs.Neutrophil (Seg) 3.26 k/uL Normal 2.5-7.0 [facility] Comment on above: Performed By: #### L DLDIR, LIPR, GLYHGB #### [place] [id number] Operations Manager/Coordinator: Placido Pierce MD #### CDP, CP, ZFAST, TSHX #### [facility] [address] [place] [address] Operations Manager/Coordinator: Emily George MD Basophils/100 WBC (Bld) 1 % Normal 0-2 [facility] Comment on above: Performed By: #### L DLDIR, LIPR, GLYHGB #### [address] [phone] Operations Manager/Coordinator: Placido Pierce MD #### CDP, CP, ZFAST, TSHX #### [facility] [address] [place] [phone] Operations Manager/Coordinator: Emily George MD Eosinophils (Bld) [#/Vol] 0.06 10*3/uL Normal 0.00-0.40 [facility] Comment on above: Performed By: #### L DLDIR, LIPR, GLYHGB #### [address] [id number] Operations Manager/Coordinator: Placido Pierce MD #### CDP, CP, ZFAST, TSHX #### [facility] [address] [place] [id number] Operations Manager/Coordinator: Emily George MD Eosinophils/100 WBC (Bld) 1 % Normal 0-5 [facility] Comment on above: Performed By: #### L DLDIR, LIPR, GLYHGB #### [address] [id number] Operations Manager/Coordinator: Placido Pierce MD #### CDP, CP, ZFAST, TSHX #### [facility] [address] [place] [phone] Operations Manager/Coordinator: Emily George MD Erythrocyte distribution width (RBC) [Ratio] 15.2 % Normal 12.1-15.2 [facility] Comment on above: Performed By: #### L DLDIR, LIPR, GLYHGB #### [address] [id number] Operations Manager/Coordinator: Placido Pierce MD #### CDP, CP, ZFAST, TSHX #### [facility] [address] [place], [place] 0274290 Operations Manager/Coordinator: Emily George MD Hematocrit (Bld) [Volume fraction] 35.5 % Low 36.0-46.0 [facility] Comment on above: Performed By: #### L DLDIR, LIPR, GLYHGB #### [address] [id number] Operations Manager/Coordinator: Placido Pierce MD #### CDP, CP, ZFAST, TSHX #### [facility] [address] [place], [place] [phone] Operations Manager/Coordinator: Emily George MD Hemoglobin (Bld) [Mass/Vol] 11.9 g/dL Low 12.0-16.0 [facility] Comment on above: Performed By: #### L DLDIR, LIPR, GLYHGB #### [address] [id number] Operations Manager/Coordinator: Placido Pierce MD #### CDP, CP, ZFAST, TSHX #### [facility] [address] [place], [place] 3008190 Operations Manager/Coordinator: Emily George MD Immature granulocytes/100 WBC (Bld) 2 % Normal 0-5 [facility] Comment on above: Performed By: #### L DLDIR, LIPR, GLYHGB #### [address] [id number] Operations Manager/Coordinator: Placido Pierce MD #### CDP, CP, ZFAST, TSHX #### [facility] [address] [place], [place] [phone] Operations Manager/Coordinator: Emily George MD Lymphocytes (Bld) [#/Vol] 1.66 10*3/uL Normal 1.00-4.80 [facility] Comment on above: Performed By: #### L DLDIR, LIPR, GLYHGB #### [address] [id number] Operations Manager/Coordinator: Placido Pierce MD #### CDP, CP, ZFAST, TSHX #### [facility] [address] [place] [address] Operations Manager/Coordinator: Emily George MD Lymphocytes/100 WBC (Bld) 30 % Normal 15-40 [facility] Comment on above: Performed By: #### L DLDIR, LIPR, GLYHGB #### [address] [id number] Operations Manager/Coordinator: Placido Pierce MD #### CDP, CP, ZFAST, TSHX #### [facility] [address] [place] [phone] Operations Manager/Coordinator: Emily George MD MCH (RBC) [Entitic mass] 28.4 pg Normal 26.0-34.0 [facility] Comment on above: Performed By: #### L DLDIR, LIPR, GLYHGB #### [address] [phone] Operations Manager/Coordinator: Placido Pierce MD #### CDP, CP, ZFAST, TSHX #### [facility] [address] [place] [phone] Operations Manager/Coordinator: Emily George MD MCHC (RBC) [Mass/Vol] 33.5 g/dL Normal 31.0-37.0 [facility] Comment on above: Performed By: #### L DLDIR, LIPR, GLYHGB #### [address] [phone] Operations Manager/Coordinator: Placido Pierce MD #### CDP, CP, ZFAST, TSHX #### [facility] [address] [place] [phone] Operations Manager/Coordinator: Emily George MD MCV (RBC) [Entitic vol] 84.7 fL Normal 80.0-100.0 [facility] Comment on above: Performed By: #### L DLDIR, LIPR, GLYHGB #### [address] [phone] Operations Manager/Coordinator: Placido Pierce MD #### CDP, CP, ZFAST, TSHX #### [facility] [address] [place], [place] [phone] Operations Manager/Coordinator: Emily George MD Monocytes (Bld) [#/Vol] 0.43 10*3/uL Normal 0.00-1.00 [facility] Comment on above: Performed By: #### L DLDIR, LIPR, GLYHGB #### [address] [address] Operations Manager/Coordinator: Placido Pierce MD #### CDP, CP, ZFAST, TSHX #### [facility] [address] [place] [phone] ( Operations Manager/Coordinator: Emily George MD Monocytes/100 WBC (Bld) 8 % Normal 4-8 [facility] Comment on above: Performed By: #### L DLDIR, LIPR, GLYHGB #### [address] [phone] Operations Manager/Coordinator: Placido Pierce MD #### CDP, CP, ZFAST, TSHX #### [facility] [address] [place] [phone] Operations Manager/Coordinator: Emily Geroge MD Neutrophil (Seg) 58 % Normal 47-75 [facility] Comment on above: Performed By: #### L DLDIR, LIPR, GLYHGB #### [address] [phone] Operations Manager/Coordinator: Placido Pierce MD #### CDP, CP, ZFAST, TSHX #### [facility] [address] [place], [place] 1332390 Operations Manager/Coordinator: Emily George MD Platelet mean volume (Bld) [Entitic vol] 10.8 fL Normal 6.0-12.0 [facility] Comment on above: Performed By: #### L DLDIR, LIPR, GLYHGB #### [address] [address] Operations Manager/Coordinator: Placido Pierce MD #### CDP, CP, ZFAST, TSHX #### [facility] [address] [place], [place] [phone] Operations Manager/Coordinator: Emily George MD Platelets (Bld) [#/Vol] 151 10*3/uL Normal 140-450 [facility] Comment on above: Performed By: #### L DLDIR, LIPR, GLYHGB #### [address] [phone] Operations Manager/Coordinator: Placido Pierce MD #### CDP, CP, ZFAST, TSHX #### [facility] [address] [place], [place] [phone] Operations Manager/Coordinator: Emily George MD RBC (Bld) [#/Vol] 4.19 10*6/uL Normal 4.00-5.20 [facility] Comment on above: Performed By: #### L DLDIR, LIPR, GLYHGB #### [address] [phone] Operations Manager/Coordinator: Placido Pierce MD #### CDP, CP, ZFAST, TSHX #### [facility] [address] [place], [place] [phone] Operations Manager/Coordinator: Emily George MD WBC (Bld) [#/Vol] 5.6 10*3/uL Normal 3.5-11.0 [facility] Comment on above: Performed By: #### L DLDIR, LIPR, GLYHGB #### [address] [id number] Operations Manager/Coordinator: Placido Pierce MD #### CDP, CP, ZFAST, TSHX #### [facility] [address] [place] [address] Operations Manager/Coordinator: Emily George MD Comp Metabolic Profon 2023 Albumin [Mass/Vol] 4.4 g/dL Normal 3.5-5.2 [facility] Comment on above: Performed By: #### L DLDIR, LIPR, GLYHGB #### [address] [phone] Operations Manager/Coordinator: Placido Pierce MD #### CDP, CP, ZFAST, TSHX #### [facility] [address] [place] [address] Operations Manager/Coordinator: Emily George MD Alkaline Phos 95 U/L Normal 35-104 [facility] Comment on above: Performed By: #### L DLDIR, LIPR, GLYHGB #### [address] [phone] Operations Manager/Coordinator: Placido Pierce MD #### HERNAN, CP, ZFAST, TSHX #### [facility] [address] [place] [address] Operations Manager/Coordinator: Emily George MD ALT [Catalytic activity/Vol] 19 U/L Normal 5-33 [facility] Comment on above: Performed By: #### L DLDIR, LIPR, GLYHGB #### [address] [id number] Operations Manager/Coordinator: Placido Pierce MD #### CDP, CP, ZFAST, TSHX #### [facility] [address] [place] [address] Operations Manager/Coordinator: Emily George MD Anion gap [Moles/Vol] 16 mmol/L Normal 9-17 [facility] Comment on above: Performed By: #### L DLDIR, LIPR, GLYHGB #### [address] [place] [address] Operations Manager/Coordinator: Placido Pierce MD #### CDP, CP, ZFAST, TSHX #### [facility] [address] [place], [place] [phone] Operations Manager/Coordinator: Emily George MD AST [Catalytic activity/Vol] 22 U/L Normal <32 [facility] Comment on above: Performed By: #### L DLDIR, LIPR, GLYHGB #### [address] [address] Operations Manager/Coordinator: Placido Pierce MD #### NANCY BECERRA, ZFAST, TSHX #### [facility] [address] [place], [place] [id number] Operations Manager/Coordinator: Emily George MD Bilirubin [Mass/Vol] 0.5 mg/dL Normal 0.3-1.2 [facility] Comment on above: Performed By: #### L DLDIR, LIPR, GLYHGB #### [address] [address] Operations Manager/Coordinator: Placido Pierce MD #### NANCY BECERRA, ZFAST, TSHX #### [facility] [address] [place], [place] 9573290 Operations Manager/Coordinator: Emily George MD BUN/CRE Ratio 21 High 9-20 [facility] Comment on above: Performed By: #### L DLDIR, LIPR, GLYHGB #### [address] [address] Operations Manager/Coordinator: Placido Pierce MD #### CDP, CP, ZFAST, TSHX #### [facility] [address] [place], [place] [phone] Operations Manager/Coordinator: Emily George MD Calcium [Mass/Vol] 9.3 mg/dL Normal 8.6-10.4 [facility] Comment on above: Performed By: #### L DLDIR, LIPR, GLYHGB #### [facility] [address] [place] [address] Operations Manager/Coordinator: Placido Pierce MD #### CDP, CP, ZFAST, TSHX #### [facility] [address] [place] [address] Operations Manager/Coordinator: Emily George MD Chloride [Moles/Vol] 99 mmol/L Normal 98-107 [facility] Comment on above: Performed By: #### L DLDIR, LIPR, GLYHGB #### [address] [address] Operations Manager/Coordinator: Placido Pierce MD #### CDP, CP, ZFAST, TSHX #### [facility] [address] [place], [place] [phone] Operations Manager/Coordinator: Emily George MD CO2 [Moles/Vol] 21 mmol/L Normal 20-31 [facility] Comment on above: Performed By: #### L DLDIR, LIPR, GLYHGB #### [address] [address] Operations Manager/Coordinator: Placido Pierce MD #### CDP, CP, ZFAST, TSHX #### [facility] [address] [place], [place] [phone] Operations Manager/Coordinator: Emily George MD Creatinine [Mass/Vol] 1.2 mg/dL High 0.5-0.9 [facility] Comment on above: Performed By: #### L DLDIR, LIPR, GLYHGB #### [address] [address] Operations Manager/Coordinator: Placido Pierce MD #### CDP, CP, ZFAST, TSHX #### [facility] [address] [place], [place] [phone] Operations Manager/Coordinator: Emily George MD GFR/1.73 sq M.predicted among non-blacks MDRD (S/P/Bld) [Vol rate/Area] 57 mL/min/{1.73_m2} Low >60 [facility] Comment on above: Result Comment: These [...] By: #### L DLDIR, LIPR, GLYHGB #### [address] [id number] Operations Manager/Coordinator: Placido Pierce MD #### CDP, CP, ZFAST, TSHX #### [facility] [address] [place] [address] Operations Manager/Coordinator: Emily George MD Glucose [Mass/Vol] 152 mg/dL High 70-99 [facility] Comment on above: Performed By: #### L DLDIR, LIPR, GLYHGB #### [address] [phone] Operations Manager/Coordinator: Placido Pierce MD #### CDP, CP, ZFAST, TSHX #### [facility] [address] [place] [address] Operations Manager/Coordinator: Emily George MD Potassium [Moles/Vol] 3.6 mmol/L Low 3.7-5.3 [facility] Comment on above: Performed By: #### L DLDIR, LIPR, GLYHGB #### [address] [phone] Operations Manager/Coordinator: Placido Pierce MD #### CDP, CP, ZFAST, TSHX #### [facility] [address] [place] [address] Operations Manager/Coordinator: Emily George MD Protein [Mass/Vol] 7.5 g/dL Normal 6.4-8.3 [facility] Comment on above: Performed By: #### L DLDIR, LIPR, GLYHGB #### [place] [address] [place] [address] Operations Manager/Coordinator: Placido Pierce MD #### CDP, CP, ZFAST, TSHX #### [facility] [address] [place], [place] [phone] Operations Manager/Coordinator: Emily George MD Sodium [Moles/Vol] 136 mmol/L Normal 135-144 [facility] Comment on above: Performed By: #### L DLDIR, LIPR, GLYHGB #### [address] [phone] Operations Manager/Coordinator: Placido Pierce MD #### HERNAN, NANCY, ZFAST, TSHX #### [facility] [address] [place], [place] [phone] Operations Manager/Coordinator: Emily George MD Urea nitrogen [Mass/Vol] 25 mg/dL High 6-20 [facility] Comment on above: Performed By: #### L DLDIR, LIPR, GLYHGB #### [address] [address] Operations Manager/Coordinator: Placido Pierce MD #### CDP, CP, ZFAST, TSHX #### [facility] [address] [place], [place] [phone] Operations Manager/Coordinator: Emily George MD Hemoglobin A1Con 01-29-2024 Glucose [Mass/Vol] 123 mg/dL Normal [facility] Comment on above: Result Comment: The ADA and AACC recommend providing the estimated average glucose result to permit better patient understanding of their HBA1c result. Performed By: #### L DLDIR, LIPR, GLYHGB #### [address] [phone] Operations Manager/Coordinator: Placido Pierce MD #### CDP, CP, ZFAST, TSHX #### [facility] [address] [place] [address] Operations Manager/Coordinator: Emily George MD HbA1c (Bld) [Mass fraction] 5.9 % Normal 4.0-6.0 [facility] Comment on above: Performed By: #### L DLDIR, LIPR, GLYHGB #### [facility] [place] [facility] [place], [place] 8262008 Operations Manager/Coordinator: Placido Pierce MD #### CDP, CP, ZFAST, TSHX #### [facility] [address] [place], [place] [phone] Operations Manager/Coordinator: Emily George MD LDL Chol, Directon LDL Chol, Direct 114 mg/dL Normal [facility] Comment on above: Performed By: #### L DLDIR, LIPR, GLYHGB #### [facility] [address] [place], [place] 9708008 Operations Manager/Coordinator: Placido Pierce MD #### CDP, CP, ZFAST, TSHX #### [facility] [address] [place] [address] Operations Manager/Coordinator: Emily George MD Lipid Profileon 01-29-2024 Cholesterol [Mass/Vol] 190 mg/dL Normal 0-199 [facility] Comment on above: Result Comment: Cholesterol Guidelines: <200 Desirable 200-240 Borderline >240 Undesirable Performed By: #### L DLDIR, LIPR, GLYHGB #### [facility] [address] [place] [address] Operations Manager/Coordinator: Placido Pierce MD #### CDP, CP, ZFAST, TSHX #### [facility] [address] [place] [address] Operations Manager/Coordinator: Emily George MD Cholesterol in HDL [Mass/Vol] 30 mg/dL Low >40 [facility] Comment on above: Result Comment: HDL Guidelines: <40 Undesirable 40-59 Borderline >59 Desirable Performed By: #### L DLDIR, LIPR, GLYHGB #### [address] [address] Operations Manager/Coordinator: Placido Pierce MD #### CDP, CP, ZFAST, TSHX #### [facility] [address] [place], [place] [phone] Operations Manager/Coordinator: Emily George MD Cholesterol,LDL Can not be calculated Normal 0-100 [facility] Comment on above: Result Comment: LDL Guidelines: <100 Desirable 100-129 Near to/above Desirable 130-159 Borderline >159 Undesirable Direct (measured) LDL and calculated LDL are not interchangeable tests. Performed By: #### L DLDIR, LIPR, GLYHGB #### [address] [address] Operations Manager/Coordinator: Placido Pierce MD #### CDP, CP, ZFAST, TSHX #### [facility] [address] [place], [place] 8460090 Operations Manager/Coordinator: Emily George MD Cholesterol,VLDL Can not be calculated Normal [facility] Comment on above: Performed By: #### L DLDIR, LIPR, GLYHGB #### [address] [address] Operations Manager/Coordinator: Placido Pierce MD #### CDP, CP, ZFAST, TSHX #### [facility] [address] [place], [place] [phone] Operations Manager/Coordinator: Emily George MD Cholesterol.total/Cho lesterol in HDL [Mass ratio] 6.0 {ratio} Normal [facility] Comment on above: Performed By: #### L DLDIR, LIPR, GLYHGB #### [address] [address] Operations Manager/Coordinator: Placido Pierce MD #### CDP, CP, ZFAST, TSHX #### [facility] [address] [place], [place] 9663890 Operations Manager/Coordinator: Emily George MD Triglyceride [Mass/Vol] 443 mg/dL High <150 [facility] Comment on above: Result Comment: Triglyceride Guidelines: <150 Desirable 150-199 Borderline 200-499 High >499 Very high Based on AHA Guidelines for fasting triglyceride, July 2012. Performed By: #### L DLDIR, LIPR, GLYHGB #### [address] [phone] Operations Manager/Coordinator: Placido Pierce MD #### CDP, CP, ZFAST, TSHX #### [facility] [address] [place], [place] [phone] Operations Manager/Coordinator: Emily George MD Patient fasting?on 4 Patient fasting? YES Normal [facility] Comment on above: Performed By: #### L DLDIR, LIPR, GLYHGB #### [address] [phone] Operations Manager/Coordinator: Placido Pierce MD #### NANCY BECERRA, ZFAST, TSHX #### [facility] [address] [place], [place] [phone] Operations Manager/Coordinator: Emily George MD TSH w/reflex to FT4on 2023 Thyroid Stim. Horm. 1.77 uIU/mL Normal 0.30-5.00 [facility] Comment on above: Performed By: #### L DLDIR, LIPR, GLYHGB #### [address] [phone] Operations Manager/Coordinator: Placido Pierce MD #### CDP, CP, ZFAST, TSHX #### [facility] [address] [place], [place] [phone] Operations Manager/Coordinator: Emily George MD XR WRIST RIGHT (MIN [...] Lauren Jr., MD 08/24/23 Final result Normal [facility] Lipid Panelon 06-15-2023 Interpretation and review of laboratory results Abnormal [facility] Lipid Profileon 06-15-2023 Cholesterol [Mass/Vol] 174 mg/dL Normal <200 [facility] [facility] Comment on above: Cholesterol Guidelines: <200 Desirable 200-240 Borderline >240 Undesirable Result Comment: Cholesterol Guidelines: <200 Desirable 200-240 Borderline >240 Undesirable Performed By: #### L DLDIR, LIPR, GLYHGB #### [facility] [place] [address] [place] [address] [phone] Operations Manager/Coordinator: Placido Pierce MD #### CDP, CP, ZFAST, TSHX #### [facility] [address] [place], [place] [phone] Operations Manager/Coordinator: Emily George MD Cholesterol in HDL [Mass/Vol] 30 mg/dL Low >40 [facility] Comment on above: HDL Guidelines: <40 Undesirable 40-59 Borderline >59 Desirable Result Comment: HDL Guidelines: <40 Undesirable 40-59 Borderline >59 Desirable Performed By: #### L DLDIR, LIPR, GLYHGB #### [facility] [address] [place], [place] [phone] Operations Manager/Coordinator: Placido Pierce MD #### CDP, CP, ZFAST, TSHX #### [facility] [address] [place] [address] Operations Manager/Coordinator: Emily George MD Cholesterol in LDL [Mass/Vol] 77 mg/dL Normal 0-130 [facility] Comment on above: LDL Guidelines: <100 Desirable 100-129 Near to/above Desirable 130-159 Borderline >159 Undesirable Direct (measured) LDL and calculated LDL are not interchangeable tests. Result Comment: LDL Guidelines: <100 Desirable 100-129 Near to/above Desirable 130-159 Borderline >159 Undesirable Direct (measured) LDL and calculated LDL are not interchangeable tests. Performed By: #### L DLDIR, LIPR, GLYHGB #### [facility] [place] [address] [place] [address] Operations Manager/Coordinator: Placido Pierce MD #### CDP, CP, ZFAST, TSHX #### [facility] [address] [place], [place] [phone] Operations Manager/Coordinator: Emily George MD Cholesterol.total/Cho lesterol in HDL [Mass ratio] 5.8 {ratio} High <5 [facility] Comment on above: Performed By: #### L DLDIR, LIPR, GLYHGB #### [address] [phone] Operations Manager/Coordinator: Placido Pierce MD #### CDP, CP, ZFAST, TSHX #### [facility] [address] [place], [place] [phone] Operations Manager/Coordinator: Emily George MD Triglyceride [Mass/Vol] 334 mg/dL High <150 [facility] Comment on above: Triglyceride Guidelines: <150 Desirable 150-199 Borderline 200-499 High >499 Very high Based on AHA Guidelines for fasting triglyceride, July 2012. Result Comment: Triglyceride Guidelines: <150 Desirable 150-199 Borderline 200-499 High >499 Very high Based on AHA Guidelines for fasting triglyceride, July 2012. Performed By: #### L DLDIR, LIPR, GLYHGB #### [facility] [address] [place] [address] Operations Manager/Coordinator: Placido Pierce MD #### CDP, CP, ZFAST, TSHX #### [facility] [address] [place], [place] [phone] Operations Manager/Coordinator: Emily George MD US THYROIDon 06-15-2023 US THYROID EXAM: [...] Lauren Jr., MD 06/15/23 Final result Normal [facility] PTH, Intacton 05-17-2023 PTH, Intact 47.1 pg/mL Normal 14.0-72.0 [facility] Comment on above: Result Comment: SAMP LES FROM PATIENTS ROUTINELY RECEIVING HIGH DOSE BIOTIN THERAPY MAY SHOW FALSELY DEPRESSED RESULTS. ADDITIONAL INFORMATION MAY BE REQUIRED FOR DIAGNOSIS. Performed By: #### R ENP #### [facility] [address] [place] [address] Operations Manager/Coordinator: Emily George MD #### VD25, PTHNCA, URTPRT #### [id number] [place], [place] [phone] Operations Manager/Coordinator: Placido Pierce MD Protein,Tot,[place] [facility] 2022 Creatinine [Mass/Vol] 146.1 mg/dL Normal 28.0-217.0 [facility] Comment on above: Performed By: #### L DLDIR, LIPR, GLYHGB #### [facility] [address] [place], [place] [phone] Operations Manager/Coordinator: Placido Pierce MD #### CDP, CP, ZFAST, TSHX #### [facility] [address] [place] [address] Operations Manager/Coordinator: Emily George MD Tot Prot. Conc. 10 mg/dL Normal [facility] Comment on above: Result Comment: No n ormal range established. Performed By: #### L DLDIR, LIPR, GLYHGB #### [id number] [place], [place] [phone] Operations Manager/Coordinator: Placido Pierce MD #### NANCY BECERRA, ZFAST, TSHX #### [facility] [address] [place], [place] [phone] Operations Manager/Coordinator: Emily George MD TP/Cre Ratio 0.07 Normal 0.00-0.20 [facility] Comment on above: Performed By: #### L DLDIR, LIPR, GLYHGB #### [address] [phone] Operations Manager/Coordinator: Placido Pierce MD #### NANCY BECERRA, ZFAST, TSHX #### [facility] [address] [place], [place] [phone] Operations Manager/Coordinator: Emily George MD Renal Function Panelon 05-17 Albumin [Mass/Vol] 4.1 g/dL Normal 3.5-5.2 [facility] Comment on above: Performed By: #### R ENP #### [facility] [address] [place], [place] [phone] Operations Manager/Coordinator: Emily George MD #### VD25, PTHNCA, URTPRT #### [address] [phone] Operations Manager/Coordinator: Placido Pierce MD Anion gap [Moles/Vol] 7 mmol/L Low 9-17 [facility] Comment on above: Performed By: #### R ENP #### [facility] [address] [place], [place] [phone] Operations Manager/Coordinator: Emily George MD #### VD25, PTHNCA, URTPRT #### [facility] [address] [place], [place] [phone] Operations Manager/Coordinator: Placido iPerce MD BUN/CRE Ratio 15 Normal 9-20 [facility] Comment on above: Performed By: #### R ENP #### [facility] [address] [place] [address] Operations Manager/Coordinator: Emily George MD #### VD25, PTHNCA, URTPRT #### [facility] [address] [place], [place] [phone] Operations Manager/Coordinator: Placido Pierce MD Calcium [Mass/Vol] 9.5 mg/dL Normal 8.6-10.4 [facility] Comment on above: Performed By: #### R ENP #### [facility] [address] [place], [place] [phone] Operations Manager/Coordinator: Emily George MD #### VD25, PTHNCA, URTPRT #### [address] [place], [place] [phone] Operations Manager/Coordinator: Placido Pierce MD Chloride [Moles/Vol] 101 mmol/L Normal 98-107 [facility] Comment on above: Performed By: #### R ENP #### [facility] [address] [place], [place] [phone] Operations Manager/Coordinator: Emily George MD #### VD25, PTHNCA, URTPRT #### [facility] [address] [place] [address] Operations Manager/Coordinator: Placido Pierce MD CO2 [Moles/Vol] 29 mmol/L Normal 20-31 [facility] Comment on above: Performed By: #### R ENP #### [facility] [address] [place] [address] Operations Manager/Coordinator: Emily George MD #### VD25, PTHNCA, URTPRT #### [address] [place] [address] Operations Manager/Coordinator: Placido Pierce MD Creatinine [Mass/Vol] 1.1 mg/dL High 0.5-0.9 [facility] Comment on above: Performed By: #### R ENP #### [facility] [address] [place] [address] Operations Manager/Coordinator: Emily George MD #### VD25, PTHEMILYA, URTPRT #### [address] [place], [place] [phone] Operations Manager/Coordinator: Placido Pierce MD GFR/1.73 sq M.predicted among non-blacks MDRD (S/P/Bld) [Vol rate/Area] mL/min/{1.73_m2} Normal >60 [facility] Comment on above: Result Comment: These [...] secretion. Performed By: #### R ENP #### [facility] [address] [place] [address] Operations Manager/Coordinator: Emily George MD #### VD25, PTHEMILYA, URTPRT #### [address] [address] Operations Manager/Coordinator: Placido Pierce MD Glucose [Mass/Vol] 105 mg/dL High 70-99 [facility] Comment on above: Performed By: #### R ENP #### [facility] [address] [place], [place] [phone] Operations Manager/Coordinator: Emily George MD #### VD25, PTHEMILYA, URTPRT #### [address] [phone] Operations Manager/Coordinator: Placido Pierce MD Phosphorus, Inorg. 3.0 mg/dL Normal 2.6-4.5 [facility] Comment on above: Performed By: #### R ENP #### [facility] [address] [place], [place] [phone] Operations Manager/Coordinator: Emily George MD #### VD25, PTHEMILYA, URTPRT #### [address] [place], [place] [phone] Operations Manager/Coordinator: Placido Pierce MD Potassium [Moles/Vol] 4.3 mmol/L Normal 3.7-5.3 [facility] Comment on above: Performed By: #### R ENP #### [facility] [address] [place], [place] [phone] Operations Manager/Coordinator: Emily George MD #### VD25, STANTON, URTPRT #### [address] [phone] Operations Manager/Coordinator: Placido Pierce MD Sodium [Moles/Vol] 137 mmol/L Normal 135-144 [facility] Comment on above: Performed By: #### R ENP #### [facility] [address] [place], [place] [phone] Operations Manager/Coordinator: Emily George MD #### VD25, PTHELENA, URTPRT #### [address] [phone] Operations Manager/Coordinator: Placido Pierce MD Urea nitrogen [Mass/Vol] 17 mg/dL Normal 6-20 [facility] Comment on above: Performed By: #### R ENP #### [facility] [address] [place], [place] [phone] Operations Manager/Coordinator: Emily George MD #### VD25, PTHEMILYA, URTPRT #### [address] [phone] Operations Manager/Coordinator: Placido Pierce MD Vitamin D 25 OHon 05-17-2023 Vitamin D 25 [place] 53.1 ng/mL Normal >29.9 [facility] Comment on above: Result Comment: Reference Range: Vitamin D status Range Deficiency <20 ng/mL Mild Deficiency 20-30 ng/mL Sufficiency 30-100 ng/mL Toxicity >100 ng/mL Performed By: #### R ENP #### [facility] [address] [place] [address] Operations Manager/Coordinator: Emily George MD #### VD25, PTHNCA, URTPRT #### [facility] [address] [place] [address] Operations Manager/Coordinator: Placido Pierce MD XR ORTHO FOOT LEFTon [...] ThuMarch 04, 2023 4:22:25 PM EDT Normal [facility] Comment on above: Order Comment: Injur y/Trauma or Illness?:Illness/Other How long have you had these symptoms (acute/chronic)?:Chronic Reason for exam?:Left foot charcot History of cancer?:Unknown Surgeries, chemotherapy, or radiation?:Unknown Type of Exam?:Initial Additional signs and symptoms?:Left foot charcot BUN & Creatinineon 3 Creatinine [Mass/Vol] 1.08 mg/dL High 0.50 - 0.90 mg/dL [facility] GFR/1.73 sq M.predicted MDRD (S/P/Bld) [Vol rate/Area] - PINF [facility] Comment on above: These results are not [...] 21 mg/dL High 6 - 20 mg/dL [facility] CBC with Auto Differentialon 02-05-2023 Absolute Eos # 0.10 [facility] Absolute Lymph # 1.70 [facility] Absolute [place] # 0.50 [facility] RS [facility] Basophils (Bld) [#/Vol] 0.00 10*3/uL [facility] Basophils/100 WBC (Bld) 1 % 0 - 2 % [facility] Differential Type YES [facility] Eosinophils/100 WBC (Bld) 1 % 0 - 5 % [facility] Hematocrit (Bld) [Volume fraction] 36.2 % 36 - 46 % [facility] Hemoglobin (Bld) [Mass/Vol] 12.2 g/dL 12.0 - 16.0 g/dL [facility] Interpretation and review of laboratory results Abnormal [facility] Lymphocytes/100 WBC (Bld) 23 % 15 - 40 % [facility] MCH (RBC) [Entitic mass] 28.7 pg 26 - 34 pg [facility] MCHC (RBC) [Mass/Vol] 33.7 g/dL 31 - 37 g/dL B [facility] MCV (RBC) [Entitic vol] 85.3 fL 80 - 100 fL [facility] Monocytes/100 WBC (Bld) 7 % 4 - 8 % [facility] Platelet distribution width (Bld) [Ratio] 18.1 % High 12.1 - 15.2 % [facility] Platelets (Bld) [#/Vol] 150 10*3/uL [facility] RBC (Bld) [#/Vol] 4.25 10*6/uL 4.0 - 5.2 m/uL [facility] Segmented neutrophils/100 WBC (Bld) 68 % 47 - 75 % [facility] Segs Absolute 5.30 [facility] WBC (Bld) [#/Vol] 7.6 10*3/uL [facility] Chlorideon 02-05-2023 Chloride [Moles/Vol] 99 mmol/L 98 - 10 7 mmol/L [facility] Glucose, Randomon 02-05-2023 Glucose [Mass/Vol] 107 mg/dL High 70 - 99 mg/dL [facility] No Panel Informationon 02-05 Interpretation and review of laboratory results Abnormal [facility] Potassiumon 02-05-2023 Potassium [Moles/Vol] 4.6 mmol/L 3.7 - 5.3 mmol/L [facility] Sodiumon 02-05-2023 Sodium [Moles/Vol] 134 mmol/L Low 135 - 144 mmol/L [facility] Wet Prep, Genitalon 02-06-20 Interpretation and review of laboratory results Abnormal [facility] Microorganism or agent identified Nom (Unsp spec) FEW WBC Abnormal [facility] Microorganism or agent identified Nom (Unsp spec) MODERATE EPITHELIAL CELLS Abnormal [facility] Microorganism or agent identified Nom (Unsp spec) MODERATE BACTERIA Abnormal [facility] Microorganism or agent identified Nom (Unsp spec) NO TRICHOMONAS SEEN [facility] Microorganism or agent identified Nom (Unsp spec) NO FUNGAL ELEMENTS SEEN [facility] Microorganism or agent identified Nom (Unsp spec) NO CLUECELL SEEN [facility] Specimen Description .[facility] CT FOOT LT WO CONon 02-05-20 [...] by: EMILY ELY Date: 2023-02-04 20:14 Normal 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 [facility] EXAM: MRI FOOT LEFT W WO [...] osteomyelitis. No nonenhancing abscess pockets are identified. [facility] Mike Villavicencio M D - 06/25/2022 EXAM: MRI FOOT [...] fragmentation of the navicular and cuneiform bones. [facility] [employer] Phone: Radiology Study observation (narrative) [facility] Phone: MRI FOOT LEFT W WO CONTRASTO rdered By: Mike Villavicencio on 06-25-2022 [facility] Phone: XR FOOT LEFT (2 VIEWS)on There is a linear metallic foreign body projecting between the second and third metatarsals. There is also a metallic foreign body within the lower leg. There is fragmentation of the navicular as well as of all 3 cuneiforms. The appearance is consistent with the patient's history of neuropathy. [facility] EXAM: XR FOOT LEFT ( 2 VIEWS) HISTORY: M79.5. The patient is a 42-year-old female. Evaluate for foreign body. COMPARISON: None. [facility] Mike Villavicencio M D [...] consistent with the patient's history of neuropathy. 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 Clinical follow up recommended. Subcentimeter highly suspicious nodule in the right thyroid lobe 7 mm in greatest dimension. This meets criteria for annual follow up for 5 years. It does not meet criteria for FNA. [facility] EXAM: US HEAD NECK [...] fat without shadowing, suggestive of a lipoma. [facility] Micky Lauren Jr., MD - 05/27/2022 [...] It does not meet criteria for FNA. [facility] [employer] Work Phone: Radiology Study observation (narrative) [facility] [employer] Work Phone: US HEAD NECK SOFT TISSUE THY ROIDOrdered By: Micky Lauren on 05-27-2022 [facility] [employer] Work Phone: Rejection Notificationon Reason see below Normal [facility] Comment on above: Result Comment: Unab le to perform testing; no specimen received. To perform testing the specimen will need to be recollected. No spec Performed By: #### R EJEC #### [facility] ([place], [place]) [address] [id number] Rejected Test CXURN Normal [facility] Comment on above: Performed By: #### R EJEC #### [facility] ([place], [place]) [address] [id number] LDL Cholesterol, Directon Cholesterol in LDL [Mass/Vol] 84 mg/dL <100 [facility] CBC with Auto Differentialon 04-12-2022 Absolute Eos # 0.10 [facility] Absolute Lymph # 1.40 [facility] [employer] Absolute [place] # 0.30 [facility] RS [facility] [employer] Basophils (Bld) [#/Vol] 0.00 10*3/uL [facility] Basophils/100 WBC (Bld) 1 % 0 - 2 % [facility] [employer] Differential Type YES [facility] Eosinophils/100 WBC (Bld) 1 % 0 - 5 % [facility] Hematocrit (Bld) [Volume fraction] 35.7 % Low 36 - 46 % [facility] Hemoglobin (Bld) [Mass/Vol] 12.0 g/dL 12.0 - 16.0 g/dL [facility] [employer] Interpretation and review of laboratory results Abnormal [facility] Lymphocytes/100 WBC (Bld) 25 % 15 - 40 % [facility] MCH (RBC) [Entitic mass] 28.0 pg 26 - 34 pg [facility] MCHC (RBC) [Mass/Vol] 33.7 g/dL 31 - 37 g/dL B ON [facility] MCV (RBC) [Entitic vol] 83.3 fL 80 - 100 fL [facility] Monocytes/100 WBC (Bld) 5 % 4 - 8 % [facility] Platelet distribution width (Bld) [Ratio] 16.4 % High 12.1 - 15.2 % [facility] Platelets (Bld) [#/Vol] 168 10*3/uL [facility] RBC (Bld) [#/Vol] 4.29 10*6/uL 4.0 - 5.2 m/uL [facility] Segmented neutrophils/100 WBC (Bld) 68 % 47 - 75 % [facility] Segs Absolute 3.90 [facility] WBC (Bld) [#/Vol] 5.7 10*3/uL [facility] Comprehensive Metabolic Pane lyn 04-12-2022 Albumin [Mass/Vol] 4.2 g/dL 3.5 - 5.2 g/dL [facility] ALP (Bld) [Catalytic activity/Vol] 88 U/L 35 - 104 U/L [facility] ALT [Catalytic activity/Vol] 29 U/L 5 - 33 U/L [facility] Anion gap [Moles/Vol] 11 mmol/L 9 - 17 mmol/L [facility] AST [Catalytic activity/Vol] 27 U/L <32 [facility] Bilirubin [Mass/Vol] 0.65 mg/dL 0.30 - 1.20 mg/dL [facility] Calcium [Mass/Vol] 9.1 mg/dL 8.6 - 10. 4 mg/dL [facility] Chloride [Moles/Vol] 101 mmol/L 98 - 10 7 mmol/L [facility] CO2 [Moles/Vol] 28 mmol/L 20 - 31 mmol/L [facility] Creatinine [Mass/Vol] 1.04 mg/dL High 0.50 - 0.90 mg/dL [facility] Free PSA/Total PSA [Mass fraction] 6.8 g/dL 6.4 - 8.3 g/dL [facility] GFR >60 >60 mL/min [facility] GFR Non- 58 mL/min Low >60 [facility] GFR/1.73 sq M.predicted MDRD (S/P/Bld) [Vol rate/Area] [facility] Comment on above: Average GFR for 40-4 9 years old: 99 mL/min/1.73sq m Chronic Kidney Disease: <60 mL/min/1.73sq m Kidney failure: <15 mL/min/1.73sq m eGFR calculated using average adult body mass. Additional eGFR calculator available at: http://www.[employer]/multiple_crcl_2012.htm Glucose [Mass/Vol] 103 mg/dL High 70 - 99 mg/dL [facility] Interpretation and review of laboratory results Abnormal [facility] Potassium [Moles/Vol] 3.9 mmol/L 3.7 - 5.3 mmol/L [facility] Sodium [Moles/Vol] 140 mmol/L 135 - 144 mmol/L [facility] Urea nitrogen (BldV) [Mass/Vol] 13 mg/dL 6 - 20 mg/dL [facility] Urea nitrogen/Creatinine (Bld) [Mass ratio] 13 [facility] HIV Screenon 04-12-2022 HIV Ag/Ab Non-Reactive NONREACTIVE [facility] Comment on above: No laboratory eviden ce of HIV infection. If acute HIV infection is suspected, consider testing for HIV-1 RNA. [facility] Lipid Panelon 04-12-2022 Cholesterol [Mass/Vol] 184 mg/dL <200 [facility] Comment on above: Cholesterol Guidelines: <200 Desirable 200-240 Borderline >240 Undesirable Cholesterol in HDL [Mass/Vol] 30 mg/dL Low >40 [facility] Comment on above: HDL Guidelines: <40 Undesirable 40-59 Borderline >59 Desirable Cholesterol.total/Cho lesterol in HDL [Mass ratio] 6.1 {ratio} High <5 [facility] [employer] [facility] Interpretation and review of laboratory results Abnormal [facility] [employer] LDL Cholesterol 0 - 130 mg/dL [facility] [employer] Comment on above: Calculation not jacqueline d for Triglyceride value greater than 400 mg/dL. Direct LDL reflexed LDL Guidelines: <100 Desirable 100-129 Near to/above Desirable 130-159 Borderline >159 Undesirable Direct (measured) LDL and calculated LDL are not interchangeable tests. Triglyceride [Mass/Vol] 460 mg/dL High <150 [facility] [employer] [facility] Comment on above: Triglyceride Guidelines: <150 Desirable 150-199 Borderline 200-499 High >499 Very high Based on AHA Guidelines for fasting triglyceride, July 2012. [facility] [employer] No Panel Informationon 04-12 [facility] TSH with Reflexon 04-12-2022 TSH Qn 0.99 m[IU]/L [facility] [employer] Urinalysis with MicroscopicO rdered By: Lita Weeks on 08-01-2021 - [employer] Work Phone: Amorphous, UA NOT REPORTED None [facility] Work Phone: Bacteria, UA RARE Abnormal None [employer] [facility] Work Phone: Bilirubin Urine Negative NEGATIVE [facility] Work Phone: Casts UA NOT REPORTED /LPF [employer] [facility] Work Phone: Color, UA Yellow Yellow [facility] [employer] Work Phone: Crystals, UA NOT REPORTED None /HPF [facility] Work Phone: Epithelial Cells UA 2 TO 5 /HPF [facility] [facility] Work Phone: Glucose, Ur Negative NEGATIVE [facility] Work Phone: Interpretation and review of laboratory results Abnormal [facility] [facility] Work Phone: Ketones Ql (U) Negative NEGATIVE [facility] Work Phone: Leukocyte esterase Test strip Ql (U) Negative NEGATIVE [facility] Work Phone: Mucus, UA NOT REPORTED None [facility] [facility] Work Phone: Nitrite, Urine Negative NEGATIVE [facility] Work Phone: Other Observations UA NOT REPORTED NOT REQ. M [facility] Work Phone: pH, UA 6.0 [facility] [employer] Work Phone: Protein, UA Negative NEGATIVE [facility] [employer] Work Phone: RBC, UA NOT REPORTED [facility] [employer] Work Phone: Renal Epithelial, UA NOT REPORTED 0 /HPF [facility] Work Phone: Specific [place], UA 1.020 [facility] [employer] Work Phone: Trichomonas, UA NOT REPORTED None [facility] Work Phone: Turbidity UA Clear Clear [facility] [employer] Work Phone: Urinalysis Comments [facility] [employer] Work Phone: Urine Hgb Negative NEGATIVE [facility] [employer] Work Phone: Urobilinogen, Urine Normal Normal [facility] [employer] Work Phone: WBC, UA NOT REPORTED 0 /HPF [facility] [employer] Work Phone: Yeast, UA NOT REPORTED None [facility] [employer] Work Phone: [facility] [employer] Work Phone: Urinalysis with MicroscopicO rdered By: Lita Weeks on 07-11-2021 - [facility] [employer] Work Phone: Amorphous, UA NOT REPORTED None [facility] Work Phone: Bacteria, UA 3+ Abnormal None [facility] [employer] Work Phone: Bilirubin Urine Negative NEGATIVE [facility] Work Phone: Casts UA NOT REPORTED /LPF [facility] [employer] Work Phone: Color, UA Yellow Yellow [facility] [employer] Work Phone: Crystals, UA NOT REPORTED None /HPF [facility] [employer] Work Phone: Epithelial Cells UA 2 TO 5 /HPF [facility] [employer] Work Phone: Glucose, Ur Negative NEGATIVE [facility] [employer] Work Phone: Interpretation and review of laboratory results Abnormal [facility] [employer] Work Phone: Ketones Ql (U) Negative NEGATIVE [employer] Work Phone: Leukocyte esterase Test strip Ql (U) 2+ Abnormal NEGATIVE [facility] [employer] Work Phone: Mucus, UA NOT REPORTED None [facility] [employer] Work Phone: Nitrite, Urine Positive Abnormal NEGATIVE [facility] Work Phone: Other Observations UA NOT REPORTED NOT REQ. [facility] [employer] Work Phone: pH, UA 6.0 [facility] [employer] Work Phone: Protein, UA Negative NEGATIVE [facility] [employer] Work Phone: RBC, UA NOT REPORTED [facility] [employer] Work Phone: Renal Epithelial, UA NOT REPORTED 0 /HPF [facility] [employer] Work Phone: Specific [place], UA 1.025 [place] [employer] Work Phone: Trichomonas, UA NOT REPORTED None [facility] Work Phone: Turbidity UA Hazy Abnormal Clear [facility] [employer] Work Phone: Urinalysis Comments [facility] [employer] Work Phone: Urine Hgb Negative NEGATIVE [facility] [employer] Work Phone: Urobilinogen, Urine Normal Normal [facility] [employer] Work Phone: WBC, UA 20 TO 50 0 /HPF [facility] [employer] Work Phone: Yeast, UA NOT REPORTED None [facility] [employer] Work Phone: [employer] Phone: AlbuminOrdered By: Gregory stevens on 05-20-2021 Albumin [Mass/Vol] 4.2 g/dL 3.5 - 5.2 g/dL [employer] Phone: BUN & CreatinineOrdered By: Gregory Forbes on 05-20-2021 Creatinine [Mass/Vol] 1.18 mg/dL High 0.50 - 0.90 mg/dL [employer] Phone: GFR >60 >60 mL/min [employer] Phone: GFR Non- 50 mL/min Low >60 [employer] Phone: GFR/1.73 sq M.predicted MDRD (S/P/Bld) [Vol rate/Area] [employer] Phone: Comment on above: Average GFR for 40-4 9 years old: 99 mL/min/1.73sq m Chronic Kidney Disease: <60 mL/min/1.73sq m Kidney failure: <15 mL/min/1.73sq m eGFR calculated using average adult body mass. Additional eGFR calculator available at: http://www.[employer]/multiple_crcl_2012.htm GFR/1.73 sq M.predicted MDRD (S/P/Bld) [Vol rate/Area] NOT REPORTED [employer] Phone: Interpretation and review of laboratory results Abnormal [employer] Phone: Urea nitrogen (BldV) [Mass/Vol] 19 mg/dL 6 - 20 mg/dL [employer] Phone: CalciumOrdered By: Gregory stevens on 05-20-2021 Calcium [Mass/Vol] 9.2 mg/dL 8.6 - 10. 4 mg/dL [employer] Phone: Electrolyte PanelOrdered By: Gregory Forbes on 05-20-2021 Anion gap [Moles/Vol] 10 mmol/L 9 - 17 mmol/L [facility] Work Phone: Chloride [Moles/Vol] 103 mmol/L 98 - 10 7 mmol/L [facility] [employer] Work Phone: CO2 [Moles/Vol] 25 mmol/L 20 - 31 mmol/L [facility] [employer] Work Phone: Potassium [Moles/Vol] 4.2 mmol/L 3.7 - 5.3 mmol/L [facility] [employer] Work Phone: Sodium [Moles/Vol] 138 mmol/L 135 - 144 mmol/L [facility] [employer] Work Phone: MagnesiumOrdered By: Gregory high on 05-20-2021 Magnesium [Mass/Vol] 2.2 mg/dL 1.6 - 2 .6 mg/dL [employer] Phone: No Panel InformationOrdered By: Gregory Forbes on 05-20-2021 [facility] [employer] Work Phone: PhosphorusOrdered By: Gregory Forbes on 05-20-2021 Phosphate [Mass/Vol] 3.7 mg/dL 2.6 - 4 .5 mg/dL [facility] [employer] Work Phone: UrinalysisOrdered By: Gregory Forbes on 05-20-2021 Bilirubin Urine Negative NEGATIVE [facility] Work Phone: Color, UA YELLOW YELLOW [facility] [employer] Work Phone: Glucose, Ur Negative NEGATIVE [facility] [facility] Work Phone: Interpretation and review of laboratory results Abnormal [facility] Work Phone: Ketones Ql (U) Negative NEGATIVE [facility] Work Phone: Leukocyte esterase Test strip Ql (U) Negative NEGATIVE [facility] Work Phone: Nitrite, Urine Negative NEGATIVE [facility] Work Phone: pH, UA 5.0 [facility] [employer] Work Phone: Protein, UA TRACE Abnormal NEGATIVE [employer] Phone: Specific [place], UA 1.020 [employer] Phone: Turbidity UA CLEAR CLEAR [employer] Phone: Urinalysis Comments [employer] Phone: Urine Hgb Negative NEGATIVE [employer] Phone: Urobilinogen, Urine Normal Normal [employer] Phone: [employer] Phone: COVID-19Ordered By: Pattie smith on 01-22-2021 SARS-CoV-2 (COVID-19) RNA SHARMIN+probe Ql (Unsp spec) [employer] Phone: SARS-CoV-2 (COVID-19) RNA SHARMIN+probe Ql (Unsp spec) Not detected Not Detected [employer] Phone: Comment on above: The specimen is NEGATIVE for SARS-CoV-2, the novel coronavirus associated with COVID-19. A negative result does not rule out COVID-19. Twin SARS-CoV-2 for use on the [employer]8800 [employer] is a real-time RT-PCR test intended [...] this assay. Fact sheet for Healthcare Providers: https://www.fda.gov/media/693047/download Fact sheet for Patients: https://www.fda.gov/media/718589/download METHODOLOGY: RT-PCR Source .THROAT [place] Phone: COVID-19, PCRon 11-15-2020 SARS-CoV-2, Rapid Not Detected Not Detected [facility] [employer] Phone: Comment on above: Rapid NAAT: The specimen is NEGATIVE for SARS-CoV-2, the novel coronavirus associated with COVID-19. The ID NOW COVID-19 assay is designed to detect [...] management decisions. Fact sheet for Healthcare Providers: https://www.fda.gov/media/035187/download Fact sheet for Patients: https://www.fda.gov/media/858020/download Methodology: Isothermal Nucleic Acid Amplification Source .THROAT [facility] [employer] Phone: Otheron 11-15-2020 SARS-CoV-2 [facility] [employer] Phone: CBC Auto Differentialon 09-04 Basophils (Bld) [#/Vol] 0.10 10*3/uL [place] Basophils/100 WBC (Bld) 1 % 0 - 2 % [place] Differential Type YES [place], [place] Eosinophils (Bld) [#/Vol] 0.10 10*3/uL [place] Eosinophils/100 WBC (Bld) 1 % 0 - 5 % [place] Erythrocyte distribution width (RBC) [Ratio] 16.3 % High 12.1 - 15.2 % [place] Hematocrit (Bld) [Volume fraction] 36.5 % 36 - 46 % [place] Hemoglobin (Bld) [Mass/Vol] 12.5 g/dL 12 - 16 g/dL [place] Interpretation and review of laboratory results Abnormal [place] Lymphocytes (Bld) [#/Vol] 1.90 10*3/uL [place] Lymphocytes/100 WBC (Bld) 25 % 15 - 40 % [place] MCH (RBC) [Entitic mass] 28.8 pg 26 - 34 pg [place] MCHC (RBC) [Mass/Vol] 34.3 g/dL 31 - 37 g/dL M [place] MCV (RBC) [Entitic vol] 84.0 fL 80 - 100 fL [place] Monocytes (Bld) [#/Vol] 0.40 10*3/uL [place] Monocytes/100 WBC (Bld) 5 % 4 - 8 % [place] Platelet mean volume (Bld) [Entitic vol] NOT REPORTED 6 - 12 fL [place], [place] Platelets (Bld) [#/Vol] 167 10*3/uL [place] Platelets (Bld) [#/Vol] NOT REPORTED [place] RBC (Bld) [#/Vol] 4.35 10*6/uL 4 - 5.2 m/uL [place] RBC morphology finding Nom (Bld) NOT REPORTED [place] Segmented neutrophils/100 WBC (Bld) 68 % 47 - 75 % [place] Segs Absolute 5.40 [place] WBC (Bld) [#/Vol] 7.8 10*3/uL [place] WBC (Bld) [#/Vol] NOT REPORTED per 100 WBC [place] WBC Morphology NOT REPORTED [place] Comprehensive Metabolic Pane l w/ Reflex to MGon 09-16-2020 Albumin [Mass/Vol] 4.4 g/dL 3.5 - 5.2 g/dL [place] Albumin/Globulin [Mass ratio] NOT REPORTED [place] ALP [Catalytic activity/Vol] 117 U/L High 35 - 104 U/L [place] ALT [Catalytic activity/Vol] 41 U/L High 5 - 33 U/L [place] Anion gap [Moles/Vol] 10 mmol/L 9 - 17 mmol/L [place] AST [Catalytic activity/Vol] 39 U/L High <32 [place] Bilirubin Ql (U) 0.52 mg/dL 0.3 - 1.2 mg/dL [place] Bun/Cre Ratio 11 [place], [place] Calcium [Mass/Vol] 9.0 mg/dL 8.6 - 10. 4 mg/dL [place] Chloride [Moles/Vol] 101 mmol/L 98 - 10 7 mmol/L [place] CO2 [Moles/Vol] 26 mmol/L 20 - 31 mmol/L [place] Creatinine [Mass/Vol] 1.32 mg/dL High 0.5 - 0.9 mg/dL [place] GFR 54 mL/min Low >60 [place] GFR Non- 44 mL/min Low >60 [place] GFR/1.73 sq M predicted among non-blacks MDRD (S/P/Bld) [Vol rate/Area] [place], [place] Comment on above: Average GFR for 40-4 9 years old: 99 mL/min/1.73sq m Chronic Kidney Disease: <60 mL/min/1.73sq m Kidney failure: <15 mL/min/1.73sq m eGFR calculated using average adult body mass. Additional eGFR calculator available at: http://www.[employer]ogi[employer]/multiple_crcl_2012.htm GFR/1.73 sq M predicted among non-blacks MDRD (S/P/Bld) [Vol rate/Area] NOT REPORTED [place] Glucose [Mass/Vol] 173 mg/dL High 70 - 99 mg/dL [place] Interpretation and review of laboratory results Abnormal [place] Potassium [Moles/Vol] 3.9 mmol/L 3.7 - 5.3 mmol/L [place] Protein [Mass/Vol] 7.3 g/dL 6.4 - 8.3 g/dL [place] Sodium [Moles/Vol] 137 mmol/L 135 - 144 mmol/L [place] Urea nitrogen [Mass/Vol] 15 mg/dL 6 - 20 mg/dL [place] Otheron 09-16-2020 Immature granulocytes (Bld) [#/Vol] NOT REPORTED [place] Sedimentation Rateon 020 Sed Rate 15 mm 0 - 20 mm [place] Urinalysis, reflex to micros copicon 09-16-2020 Bilirubin Urine Negative NEGATIVE [place] Color, UA YELLOW YELLOW [place], [place] Glucose, Ur Negative NEGATIVE [place] Interpretation and review of laboratory results Abnormal [place] Ketones Ql (U) Negative NEGATIVE [place], [place] Leukocyte esterase Test strip Ql (U) Negative NEGATIVE [place] Nitrite, Urine Negative NEGATIVE [place], [place] pH, UA 5.0 [place], [place] Protein (U) [Mass/Vol] TRACE Abnormal NEGATIVE [place] Specific [place], UA 1.025 [place], [place] Turbidity UA CLEAR CLEAR [place], [place] Urinalysis Comments [place] Urine Hgb Negative NEGATIVE [place] Urobilinogen, Urine Normal Normal [place], [place] C-Reactive Proteinon 020 CRP [Mass/Vol] 6 mg/L High 0 - 5 mg/L [place], [place] Interpretation and review of laboratory results Abnormal [place], [place] CBC With Auto Differentialon 08-24-2020 Basophils (Bld) [#/Vol] 0.00 10*3/uL [place], [place] Basophils/100 WBC (Bld) 1 % 0 - 2 % [place] Differential Type YES [place], [place] Eosinophils (Bld) [#/Vol] 0.10 10*3/uL [place] Eosinophils/100 WBC (Bld) 1 % 0 - 5 % [place] Erythrocyte distribution width (RBC) [Ratio] 16.2 % High 12.1 - 15.2 % [place] Hematocrit (Bld) [Volume fraction] 35.4 % Low 36 - 46 % [place] Hemoglobin (Bld) [Mass/Vol] 12.2 g/dL 12 - 16 g/dL [place] Interpretation and review of laboratory results Abnormal [place] Lymphocytes (Bld) [#/Vol] 1.60 10*3/uL [place], [place] Lymphocytes/100 WBC (Bld) 28 % 15 - 40 % [place] MCH (RBC) [Entitic mass] 29.1 pg 26 - 34 pg [place] MCHC (RBC) [Mass/Vol] 34.5 g/dL 31 - 37 g/dL [place] MCV (RBC) [Entitic vol] 84.2 fL 80 - 100 fL [place], [place] Monocytes (Bld) [#/Vol] 0.40 10*3/uL [place], [place] Monocytes/100 WBC (Bld) 6 % 4 - 8 % [place] Platelet mean volume (Bld) [Entitic vol] NOT REPORTED 6 - 12 fL [place], [place] Platelets (Bld) [#/Vol] 160 10*3/uL [place] Platelets (Bld) [#/Vol] NOT REPORTED [place] RBC (Bld) [#/Vol] 4.20 10*6/uL 4 - 5.2 m/uL [place] RBC morphology finding Nom (Bld) NOT REPORTED [place] Segmented neutrophils/100 WBC (Bld) 64 % 47 - 75 % [place] Segs Absolute 3.80 [place], [place] WBC (Bld) [#/Vol] 5.8 10*3/uL [place] WBC (Bld) [#/Vol] NOT REPORTED per 100 WBC [place] WBC Morphology NOT REPORTED [place], [place] Otheron 08-24-2020 Immature granulocytes (Bld) [#/Vol] NOT REPORTED 0 % [place] Sedimentation Rateon 020 Sed Rate 10 mm 0 - 20 mm [place] C-Reactive Proteinon 020 CRP [Mass/Vol] 2 mg/L 0 - 5 mg/L [place], [place] CBC With Auto Differentialon 07-24-2020 Basophils (Bld) [#/Vol] 0.10 10*3/uL [place], [place] Basophils/100 WBC (Bld) 1 % 0 - 2 % [place] Differential Type YES [place], [place] Eosinophils (Bld) [#/Vol] 0.10 10*3/uL [place] Eosinophils/100 WBC (Bld) 1 % 0 - 5 % [place] Erythrocyte distribution width (RBC) [Ratio] 16.8 % High 12.1 - 15.2 % [place] Hematocrit (Bld) [Volume fraction] 40.0 % 36 - 46 % [place] Hemoglobin (Bld) [Mass/Vol] 13.5 g/dL 12 - 16 g/dL [place] Interpretation and review of laboratory results Abnormal [place] Lymphocytes (Bld) [#/Vol] 1.70 10*3/uL [place] Lymphocytes/100 WBC (Bld) 17 % 15 - 40 % [place] MCH (RBC) [Entitic mass] 29.1 pg 26 - 34 pg [place] MCHC (RBC) [Mass/Vol] 33.8 g/dL 31 - 37 g/dL [place] MCV (RBC) [Entitic vol] 86.0 fL 80 - 100 fL [place], [place] Monocytes (Bld) [#/Vol] 0.50 10*3/uL [place], [place] Monocytes/100 WBC (Bld) 5 % 4 - 8 % [place] Platelet mean volume (Bld) [Entitic vol] NOT REPORTED 6 - 12 fL [place], [place] Platelets (Bld) [#/Vol] NOT REPORTED [place] Platelets (Bld) [#/Vol] 208 10*3/uL [place] RBC (Bld) [#/Vol] 4.65 10*6/uL 4 - 5.2 m/uL [place] RBC morphology finding Nom (Bld) NOT REPORTED [place] Segmented neutrophils/100 WBC (Bld) 76 % High 47 - 75 % [place], [place] Segs Absolute 7.70 High [place], [place] WBC (Bld) [#/Vol] NOT REPORTED per 100 WBC [place] WBC (Bld) [#/Vol] 10.0 10*3/uL [place] WBC Morphology NOT REPORTED [place], [place] Otheron 07-24-2020 Immature granulocytes (Bld) [#/Vol] NOT REPORTED 0 % [place] Sedimentation Rateon 020 Sed Rate 6 mm 0 - 20 mm [place], [place] Protein / creatinine ratio, urineon 06-07-2020 Creatinine, Ur 101.2 mg/dL 28 - 217 mg/dL [place] Protein (U) [Mass/Vol] 8 mg/dL [place], [place] Comment on above: No normal range esta blished. Urine Total Protein Creatinine Ratio 0.08 [place] Urinalysison 06-07-2020 Bilirubin Urine Negative NEGATIVE [place] Color, UA YELLOW YELLOW [place] Glucose, Ur 100 mg/dL Abnormal NEGATIVE [place] Interpretation and review of laboratory results Abnormal [place] Ketones Ql (U) Negative NEGATIVE [place], [place] Leukocyte esterase Test strip Ql (U) Negative NEGATIVE [place] Nitrite, Urine Negative NEGATIVE [place], [place] pH, UA 6.0 [place] Protein (U) [Mass/Vol] Negative NEGATIVE [place] Specific [place], UA 1.020 [place], [place] Turbidity UA CLEAR CLEAR [place], [place] Urinalysis Comments [place] Urine Hgb Negative NEGATIVE [place] Urobilinogen, Urine Normal Normal [place] Comprehensive Metabolic Pane lyn 05-25-2020 Albumin [Mass/Vol] 4.4 g/dL 3.5 - 5.2 g/dL [place] Albumin/Globulin [Mass ratio] NOT REPORTED [place] ALP [Catalytic activity/Vol] 87 U/L 35 - 104 U/L [place] ALT [Catalytic activity/Vol] 21 U/L 5 - 33 U/L [place] Anion gap [Moles/Vol] 10 mmol/L 9 - 17 mmol/L [place] AST [Catalytic activity/Vol] 22 U/L <32 [place] Bilirubin Ql (U) 0.32 mg/dL 0.3 - 1.2 mg/dL [place] Bun/Cre Ratio 18 [place], [place] Calcium [Mass/Vol] 10.1 mg/dL 8.6 - 10. 4 mg/dL [place] Chloride [Moles/Vol] 104 mmol/L 98 - 10 7 mmol/L [place] CO2 [Moles/Vol] 26 mmol/L 20 - 31 mmol/L [place] Creatinine [Mass/Vol] 1.37 mg/dL High 0.5 - 0.9 mg/dL [place] GFR 52 mL/min Low >60 [place], [place] GFR Non- 43 mL/min Low >60 [place] GFR/1.73 sq M predicted among non-blacks MDRD (S/P/Bld) [Vol rate/Area] NOT REPORTED [place] GFR/1.73 sq M predicted among non-blacks MDRD (S/P/Bld) [Vol rate/Area] [place], [place] Comment on above: Average GFR for 40-4 9 years old: 99 mL/min/1.73sq m Chronic Kidney Disease: <60 mL/min/1.73sq m Kidney failure: <15 mL/min/1.73sq m eGFR calculated using average adult body mass. Additional eGFR calculator available at: http://www.[employer]ight[employer].Yogiyo/multiple_crcl_2011.htm Glucose [Mass/Vol] 160 mg/dL High 70 - 99 mg/dL [place] Interpretation and review of laboratory results Abnormal [place] Potassium [Moles/Vol] 4.6 mmol/L 3.7 - 5.3 mmol/L [place] Protein [Mass/Vol] 7.4 g/dL 6.4 - 8.3 g/dL [place] Sodium [Moles/Vol] 140 mmol/L 135 - 144 mmol/L [place] Urea nitrogen [Mass/Vol] 24 mg/dL High 6 - 20 mg/dL [place] Hemoglobin A1Con 05-25-2020 Glucose [Mass/Vol] 123 mg/dL [place] Comment on above: The ADA and AACC rec ommend providing the estimated average glucose result to permit better patient understanding of their HBA1c result. HbA1c (Bld) [Mass fraction] 5.9 % 4 - 6 % [place] LDL Cholesterol, Directon Cholesterol in LDL [Mass/Vol] 58 mg/dL <100 [place] Lipid Panelon 05-25-2020 Cholesterol [Mass/Vol] 194 mg/dL <200 [place], [place] Comment on above: Cholesterol Guidelines: <200 Desirable 200-240 Borderline >240 Undesirable Cholesterol in HDL [Mass/Vol] 27 mg/dL Low >40 [place] Comment on above: HDL Guidelines: <40 Undesirable 40-59 Borderline >59 Desirable Cholesterol in LDL [Mass/Vol] 0 - 130 mg/dL [place] Comment on above: Calculation not jacqueline d for Triglyceride value greater than 400 mg/dL. Direct LDL reflexed LDL Guidelines: <100 Desirable 100-129 Near to/above Desirable 130-159 Borderline >159 Undesirable Direct (measured) LDL and calculated LDL are not interchangeable tests. Cholesterol in VLDL [Mass/Vol] NOT REPORTED 1 - 30 mg/dL [place] Cholesterol.total/Cho lesterol in HDL [Mass ratio] 7.2 {ratio} High <5 [place] Interpretation and review of laboratory results Abnormal [place] Triglyceride [Mass/Vol] 1112 mg/dL High <150 [place], [place] Comment on above: Triglyceride Guidelines: <150 Desirable 150-199 Borderline 200-499 High >499 Very high Based on AHA Guidelines for fasting triglyceride, July 2012. Patient Fasting?on 0 Patient Fasting? YES [facility] [facility] TIFF Vitamin D 25 Hydroxyon 05-25 Vit D, 25-Hydroxy 30.2 ng/mL 30 - 100 ng/mL [place] Comment on above: Reference Range: Vitamin D status Range Deficiency <20 ng/mL Mild Deficiency 20-30 ng/mL Sufficiency 30-100 ng/mL Toxicity >100 ng/mL C-Reactive Proteinon 020 CRP [Mass/Vol] 6.2 mg/L High 0 - 5 mg/L [place] Interpretation and review of laboratory results Abnormal [place] Hemoglobin [id number] By: Kevin Allen on 09-24-2019 Glucose [Mass/Vol] 108 mg/dL [employer] Phone: Comment on above: The ADA and AACC rec ommend providing the estimated average glucose result to permit better patient understanding of their HBA1c result. HbA1c (Bld) [Mass fraction] 5.4 % 4.8 - 5.9 % [employer] Phone: Homocysteine, SerumOrdered B y: Janel Allen on 09-24-2019 Homocysteine 9 umol/L <15.0 [employer] Phone: TSH without ReflexOrdered By : Janel Allen on 09-24-2019 TSH Qn 1.03 m[IU]/L [employer] Phone: Vitamin B12 & FolateOrdered By: Janel Allen on 09-24-2019 Cobalamin (Vitamin B12) [Mass/Vol] 292 pg/mL 232 - 1245 pg/mL [employer] Phone: Folate 13.8 ng/mL >4.8 [employer] Phone: XR CERVICAL SPINE (4-5 VIEWS )on 07-29-2019 Mild degenerative changes cervical spine not unusual for age. Refer to the [facility] 02/03/2019 with some of the findings discussed above. [place] EXAM: XR CERVICAL SPINE (4-5 VIEWS) HISTORY: Reason for exam:->history MRSA discitis of thoracic region. New tingling and numbness of fingers COMPARISON: MRI cervical spine [facility] 02/03/2019, cervical spine series 04/03/2010. The [...] Swimmer's lateral view shows no additional abnormality. 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 New tingling and numbness of fingers COMPARISON: MRI cervical spine [facility] 02/03/2019, cervical spine series 04/03/2010. The [...] not unusual for age. Refer to the [facility] services 02/03/2019 with some of the findings discussed above. [place] C-Reactive ProteinOrdered By : Azalea Knight on 07-28-2019 CRP [Mass/Vol] 6.4 mg/L High 0 - 5 mg/L [place] Interpretation and review of laboratory results Abnormal [place] CBC With Auto DifferentialOr dered By: Azalea Knight on 07-28-2019 Absolute Eos # 0.10 [place], [place] Absolute Immature Granulocyte NOT REPORTED [place] Absolute Lymph # 2.10 [place] Absolute [place] # 0.50 [facility] [place] Basophils (Bld) [#/Vol] 0.00 10*3/uL [place] Basophils/100 WBC (Bld) 1 % 0 - 2 % [place] Differential Type YES [place], [place] Eosinophils/100 WBC (Bld) 1 % 0 - 5 % [place] Erythrocyte distribution width (RBC) [Ratio] 14.5 % 12.1 - 15.2 % [place] Hematocrit (Bld) [Volume fraction] 38.1 % 36 - 46 % [place] Hemoglobin (Bld) [Mass/Vol] 12.9 g/dL 12 - 16 g/dL [place] Immature Granulocytes NOT REPORTED 0 % [place] Lymphocytes/100 WBC (Bld) 34 % 15 - 40 % [place] MCH (RBC) [Entitic mass] 29.5 pg 26 - 34 pg [place] MCHC (RBC) [Mass/Vol] 33.9 g/dL 31 - 37 g/dL [place] MCV (RBC) [Entitic vol] 87.1 fL 80 - 100 fL [place] Monocytes/100 WBC (Bld) 8 % 4 - 8 % [place] MPV NOT REPORTED 6 - 12 fL [place] NRBC Automated NOT REPORTED per 100 WBC [place] Platelet Estimate NOT REPORTED [place] Platelets (Bld) [#/Vol] 222 10*3/uL [place] RBC (Bld) [#/Vol] 4.38 10*6/uL 4 - 5.2 m/uL [place] RBC morphology finding Nom (Bld) NOT REPORTED [place] Segmented neutrophils/100 WBC (Bld) 56 % 47 - 75 % [place] Segs Absolute 3.50 [place] WBC (Bld) [#/Vol] 6.2 10*3/uL [place] WBC Morphology NOT REPORTED [place] Sedimentation RateOrdered By : Azalea Knight on 07-28-2019 Sed Rate 19 mm 0 - 30 mm [place] C-Reactive Proteinon 019 CRP [Mass/Vol] 7.3 mg/L High 0 - 5 mg/L [place] Interpretation and review of laboratory results Abnormal [place] Albuminon 06-17-2019 Albumin [Mass/Vol] 4.3 g/dL 3.5 - 5.2 g/dL [place] BUN & Creatinineon 9 Creatinine [Mass/Vol] 1.27 mg/dL High 0.5 - 0.9 mg/dL [place] GFR 56 mL/min Low >60 [place] GFR Non- 47 mL/min Low >60 [place] GFR/1.73 sq M predicted among non-blacks MDRD (S/P/Bld) [Vol rate/Area] NOT REPORTED [place] GFR/1.73 sq M predicted among non-blacks MDRD (S/P/Bld) [Vol rate/Area] [place], [place] Comment on above: Average GFR for 40-4 9 years old: 99 mL/min/1.73sq m Chronic Kidney Disease: <60 mL/min/1.73sq m Kidney failure: <15 mL/min/1.73sq m eGFR calculated using average adult body mass. Additional eGFR calculator available at: http://www.InsightETE.Yogiyo/multiple_crcl_2012.htm Interpretation and review of laboratory results Abnormal [place] Urea nitrogen [Mass/Vol] 18 mg/dL 6 - 20 mg/dL [place] Calciumon 06-17-2019 Calcium [Mass/Vol] 10.4 mg/dL 8.6 - 10. 4 mg/dL [place] Electrolyte Panelon 06-17-20 19 Anion gap [Moles/Vol] 13 mmol/L 9 - 17 mmol/L [place] Chloride [Moles/Vol] 103 mmol/L 98 - 10 7 mmol/L [place] CO2 [Moles/Vol] 24 mmol/L 20 - 31 mmol/L [place] Potassium [Moles/Vol] 3.8 mmol/L 3.7 - 5.3 mmol/L [place] Sodium [Moles/Vol] 140 mmol/L 135 - 144 mmol/L [place] Hemoglobin and Hematocrit, B loodon 06-17-2019 Hematocrit (Bld) [Volume fraction] 35.4 % Low 36 - 46 % [place] Hemoglobin (Bld) [Mass/Vol] 12.1 g/dL 12 - 16 g/dL [place] Interpretation and review of laboratory results Abnormal [place] Magnesiumon 06-17-2019 Magnesium [Mass/Vol] 2.3 mg/dL 1.6 - 2 .6 mg/dL [place] Microscopic Urinalysison Amorphous, UA NOT REPORTED None [place] Bacteria, UA 1+ Abnormal None [place] Casts UA NOT REPORTED /LPF [place] Crystals UA NOT REPORTED None /HPF [place] Epithelial Cells UA 2 TO 5 /HPF [place] Interpretation and review of laboratory results Abnormal [place] Mucus, UA NOT REPORTED None [place] Other Observations UA NOT REPORTED NOT REQ. M [place] RBC (U) [#/Vol] NOT REPORTED [place] Renal Epithelial, Urine NOT REPORTED 0 /HPF [place] Trichomonas, UA NOT REPORTED None [place] WBC, UA 0 TO 2 0 /HPF [place] Yeast, UA NOT REPORTED None [place] Phosphoruson 06-17-2019 Phosphate [Mass/Vol] 3.0 mg/dL 2.6 - 4 .5 mg/dL [place] Protein / creatinine ratio, urineon 06-17-2019 Creatinine, Ur 228.2 mg/dL High 28 - 217 mg/dL [place] Interpretation and review of laboratory results Abnormal [place] Protein (U) [Mass/Vol] 18 mg/dL [place] Comment on above: No normal range esta blished. Urine Total Protein Creatinine Ratio 0.08 [place] Sedimentation Rateon 019 Sed Rate 24 mm 0 - 30 mm [place] Urinalysison 06-17-2019 Bilirubin Urine Negative NEGATIVE [place] Color, UA YELLOW YELLOW [place] Glucose, Ur Negative NEGATIVE [place] Interpretation and review of laboratory results Abnormal [place] Ketones Ql (U) Negative NEGATIVE [place], [place] Leukocyte esterase Test strip Ql (U) Negative NEGATIVE [place] Nitrite, Urine Negative NEGATIVE [place] pH, UA 6.0 [place] Protein (U) [Mass/Vol] TRACE Abnormal NEGATIVE [place] Specific [place], UA 1.025 [place], [place] Turbidity UA HAZY Abnormal CLEAR [place] Urinalysis Comments [place] Urine Hgb Negative NEGATIVE [place] Urobilinogen, Urine Normal Normal [place] MR CERVICAL SPINE WITHOUT CO NTRASTon [...] be due to myelomalacia or cord edema. SS/cdr Workstation ID: [id number] [facility] EXAMINATION: MR CERVICAL SPINE WITHOUT CONTRAST [...] creating probable mild left-sided neural foraminal stenosis. [facility], Rad In [employer] - 02/03/2019 11:02 AM EDT EXAMINATION: MR [...] or cord edema. /cdr Workstation ID: [id number] [facility] MR CERVICAL SPINE WITHOUT CONTRAST EXAMINATION: [...] be due to myelomalacia or cord edema. /[facility] Workstation ID: [id number] Dictated by: ORNALD MCCRAY on ThuFebruary 03, 2019 10:34:16 AM EDT Transcribed by: FELICITY DE JESUS on ThuFebruary 03, 2019 10:58:51 AM EDT Finalized by: RONALD MCCRAY on ThuFebruary 03, 2019 10:59:35 AM EDT [facility] Comment on above: Order Comment: Reaso [...] GROWTH 48 DAYS Report Status FINAL 10/11/2018 [facility] Comment on above: Performed By: #### T FIOR #### [employer] [address] [place] [address] [id number] Cult,Mycobacteria Specimen Description .SPINE .TISSUE T4 LAMINA Special Requests NOT REPORTED Direct Exam NO ACID FAST BACILLI SEEN (DIRECT SMEAR) Culture NO GROWTH 48 DAYS Report Status FINAL 10/11/2018 [facility] Comment on above: Performed By: #### L ACWB #### [place] [address] [place] [address] Cult,Funguson 09-27-2018 Cult,Fungus Specimen Description .TISSUE EPIDURAL TISSUE Special Requests NOT REPORTED Culture NO GROWTH 34 DAYS Report Status FINAL 09/27/2018 Normal [facility] Comment on above: Performed By: #### L ACWB #### [facility] [place] [facility] [place] [address] Cult,Fungus Specimen Description .SPINE .TISSUE T4 LAMINA Special Requests NOT REPORTED Culture NO GROWTH 34 DAYS Report Status FINAL 09/27/2018 Normal [facility] Comment on above: Performed By: #### L ACWB #### [facility] [place] [address] [place] [address] BUNon 09-23-2018 Urea nitrogen mass conc 20 mg/dL Normal 03-27 [facility] Comment on above: Performed By: #### 2 [id number] ####OVID[facility] CmwIizp4008 [place] [address] Creatinineon 09-23-2018 Creatinine mass conc 1.3 mg/dL High 0.5-1.1 [facility] Comment on above: Performed By: #### 2 [id number] ####OVID[facility] [address]segqvjm6941 [place] [address] eGFRon 09-23-2018 eGFR AA 54 mL/min/1.73 m2 [facility] Comment on above: Order Comment: Order added by Discern Expert. Performed By: #### 2 [id number] ####OVIDIO [address]pmobgk1956 [place] [address] GFR/1.73 sq M predicted among non-blacks MDRD vol rate/area (S/P/Bld) 45 mL/min/1.73 m2 [facility] Comment on above: Order Comment: Order added by Discern Expert. Performed By: #### 2 [id number] ####OVID[facility] Dveoagfv4785 [place] [address] Auto Diffon 09-20-2018 Basophils Auto #/vol (Bld) 0.0 E3/mcL Normal 0.0-0.2 [facility] Comment on above: Order Comment: Order Added by Discern Expert. Performed By: #### 2 [id number] ####OVID[facility] [address] [place] [address] Basophils/100 WBC Auto (Bld) 1.1 % Normal 0.0-2.0 [facility] Comment on above: Order Comment: Order Added by Discern Expert. Performed By: #### 2 [id number] ####OVID[facility] [address] [place] [address] Eos Absolute 0.0 E3/mcL Normal 0.0-0.7 [facility] Comment on above: Order Comment: Order Added by Discern Expert. Performed By: #### 2 [id number] ####OVID[facility] [address] [place] [address] Eosinophils/100 WBC Auto (Bld) 0.3 % Normal 0.0-11.0 [facility] Comment on above: Order Comment: Order Added by Nicole Expert. Performed By: #### 2 [id number] ####OVID[facility] NdzJgqg4247 [place] [address] Lymphocytes Auto #/vol (Bld) 1.2 E3/mcL Normal 1.2-3.4 [facility] Comment on above: Order Comment: Order Added by Nicole Expert. Performed By: #### 2 [id number] ####OVID[facility] [address] [place] [address] Lymphocytes/100 WBC Auto (Bld) 30.6 % Normal 20.0-55.0 [facility] Comment on above: Order Comment: Order Added by Discern Expert. Performed By: #### 2 [id number] ####OVIDIO A[address]FdsMmek[address]648 [place] [address] [place] Absolute 0.4 E3/mcL Normal 0.0-0.7 [facility] Comment on above: Order Comment: Order Added by Discern Expert. Performed By: #### 2 [id number] ####OVIDIO [address]QmrVjhs9913 [place] [address] Monocytes/100 WBC Auto (Bld) 10.2 % High 0.0-10.0 [facility] Comment on above: Order Comment: Order Added by Discern Expert. Performed By: #### 2 [id number] ####OVIDIO [address]hrTeaq[address]50 [place] [address] Neutro Absolute 2.3 E3/mcL Normal 1.4-6.5 [facility] Comment on above: Order Comment: Order Added by Discern Expert. Performed By: #### 2 608130 ####[facility] [address] [place] [address] Neutro Auto 57.8 % Normal 37.0-75.0 [facility] Comment on above: Order Comment: Order Added by Discern Expert. Performed By: #### 2 [id number] ####OVID[facility] [address] [place] [address] CBC w/ Auto Diffon 8 Erythrocyte distribution width Auto Ratio (RBC) 19.9 % High 11.5-14.5 [facility] Comment on above: Performed By: #### 2 [id number] ####[address] [place] [address] Hematocrit Auto Volume Fraction (Bld) 26.5 % Low 36.0-48.0 [facility] Comment on above: Performed By: #### 2 832411 ####OVID[address] [place] [address] Hemoglobin mass conc (Bld) 8.7 g/dL Low 12.0-16.0 [facility] Comment on above: Performed By: #### 2 [id number] ####OVID[address] [place] [address] MCH Auto Entitic mass (RBC) 29.6 pg Normal 27.0-31.0 [facility] Comment on above: Performed By: #### 2 [id number] ####OVIDIO [address]caXbfy[address] [place] [address] MCHC Auto mass conc (RBC) 32.9 g/dL Low 33.0-37.0 [facility] Comment on above: Performed By: #### 2 754810 ####OVIDIO [address]CemVvwc3598 [place] [address] MCV Auto Entitic volume (RBC) 89.8 fL Normal 78.0-100.0 [facility] Comment on above: Performed By: #### 2 [id number] ####OVIDIO OvwUckr8711 [place] [address] Platelet mean volume Auto Entitic volume (Bld) 10.5 fL Normal 7.4-11.0 [facility] Comment on above: Performed By: #### 2 [id number] ####OVIDIO BqxTpap9788 [place] [address] Platelets Auto #/vol (Bld) 117 E3/mcL Low 130-400 [facility] Comment on above: Performed By: #### 2 485476 ####OVIDIO FjgCyrd5145 [place] [address] RBC Auto #/vol (Bld) 2.95 E6/mcL Low 3.90-5.40 [facility] Comment on above: Performed By: #### 2 876170 ####OVIDIO [address]gySfik[address] [place] [address] WBC Auto #/vol (Bld) 4.0 E3/mcL Normal 3.6-11.0 [facility] Comment on above: Performed By: #### 2 363534 ####OVIDIO KfaHlfz[address] [place] [address] CRPon 09-20-2018 CRP mass conc 0.83 mg/dL Normal 0.00-1.00 [facility] Comment on above: Performed By: #### 2 [id number] ####OVIDIO [address]qe[address] [place] [address] Morphon 09-20-2018 Anisocytosis Auto Ql (Bld) 1+ Normal [facility] Comment on above: Order Comment: Order Added by Discern Expert. Performed By: #### 1 [id number] ####OVIDIO PngUwlt4593 [place] [address] Hypochromasia 1+ Normal [facility] Comment on above: Order Comment: Order Added by Discern Expert. Performed By: #### 1 [id number] ####OVIDIO TksPvsz3631 [place] [address] RBC morphology finding Nom (Bld) SEE MORPHOLOGY Normal [facility] Comment on above: Order Comment: Order Added by Discern Expert. Performed By: #### 1 [id number] ####OVIDIO XjeUibn4087 [place] [address] Sed Rate Automatedon 018 Sed Rate Automated 15 mm/hr Normal [facility] Comment on above: Result Comment: AGE- SPECIFIC REFERENCE RANGES FOR SEDIMENTATION RATE AUTOMATED REFERENCE RANGE - MM/HR AGE MEN WOMEN 0-2 0-2 - PUBERTY 3-13 3-13 PUBERTY - 50 YRS 0-15 0-20 > 50 YRS 0-20 0-30 Performed By: #### 1 [id number] ####OVIDIO Hematology Manual [address] [place] [address] zzplt morphon 09-20-2018 Platelet morphology finding Nom (Bld) NORMAL [facility] Comment on above: Performed By: #### 9 [id number] ####OVIDIO MspZvny4956 [place] [address] Platelets Auto #/vol (Bld) NORMAL Normal [facility] Comment on above: Performed By: #### 9 [id number] ####OVIDIO GvcAcxb6849 [place] [address] BLOOD UREA NITROGENon 2017 Urea nitrogen mass conc (Bld) 19 mg/dL Normal 7-20 [facility] Comment on above: Performed By: #### A CBC, ESR, BUN, CREAT, CREACT, FX ####Testing performed at [address] [address] C REACTIVE PROTEINon 018 CRP mass conc 18.5 mg/L High 0-10.0 [facility] Comment on above: Performed By: #### A CBC, ESR, BUN, CREAT, CREACT, FX ####Testing performed at [address] [address] CBCon 09-13-2018 ABSOLUTE BAS 0.1 X10 Normal [facility] Comment on above: Performed By: #### A CBC, ESR, BUN, CREAT, CREACT, FX ####Testing performed at [address] [address] ABSOLUTE EOS 0.20 X10 Normal [facility] Comment on above: Performed By: #### A CBC, ESR, BUN, CREAT, CREACT, FX ####Testing performed at [address] [address] ABSOLUTE NEUTROPHIL COUNT 2.5 x10 Normal 1.0-7.0 [facility] Comment on above: Performed By: #### A CBC, ESR, BUN, CREAT, CREACT, FX ####Testing performed at [address] [address] Basophils/100 WBC Auto (Bld) 1.4 % Normal 0.0-2.0 [facility] Comment on above: Performed By: #### A CBC, ESR, BUN, CREAT, CREACT, FX ####Testing performed at [address] [address] DTYPE AUTO DIFF Normal [facility] Comment on above: Performed By: #### A CBC, ESR, BUN, CREAT, CREACT, FX ####Testing performed at [address] [address] Eosinophils/100 WBC Auto (Bld) 3.5 % Normal 0.0-11.0 [facility] Comment on above: Performed By: #### A CBC, ESR, BUN, CREAT, CREACT, FX ####Testing performed at [address] [address] Lymphocytes Auto #/vol (Bld) 1.10 X10 Normal [facility] Comment on above: Performed By: #### A CBC, ESR, BUN, CREAT, CREACT, FX ####Testing performed at [address] [address] Lymphocytes/100 WBC Auto (Bld) 27.0 % Normal 20.0-55.0 [facility] Comment on above: Performed By: #### A CBC, ESR, BUN, CREAT, CREACT, FX ####Testing performed at [address] [address] Monocytes Auto #/vol (Bld) 0.4 X10 Normal [facility] Comment on above: Performed By: #### A CBC, ESR, BUN, CREAT, CREACT, FX ####Testing performed at [place] [id number] Monocytes/100 WBC Auto (Bld) 9.4 % Normal 0.0-10.0 [facility] Comment on above: Performed By: #### A CBC, ESR, BUN, CREAT, CREACT, FX ####Testing performed at [place] [id number] Neutrophils/100 WBC Auto (Bld) 58.7 % Normal 37.0-75.0 [facility] Comment on above: Performed By: #### A CBC, ESR, BUN, CREAT, CREACT, FX ####[place] [address] Erythrocyte distribution width Auto Ratio (RBC) 17.6 % High 11.5-14.5 [facility] Comment on above: Performed By: #### A CBC, ESR, BUN, CREAT, CREACT, FX ####[place] [address] Hematocrit Auto Volume Fraction (Bld) 26.2 % Low 36.0-48.0 [facility] Comment on above: Performed By: #### A CBC, ESR, BUN, CREAT, CREACT, FX ####[place] [address] Hemoglobin mass conc (Bld) 8.8 g/dL Low 12.0-16.0 [facility] Comment on above: Performed By: #### A CBC, ESR, BUN, CREAT, CREACT, FX ####Testing performed at [place] [id number] MCH Auto Entitic mass (RBC) 29.3 pg Normal 26.0-35.0 [facility] Comment on above: Performed By: #### A CBC, ESR, BUN, CREAT, CREACT, FX ####Testing performed at [place] [id number] MCHC Auto mass conc (RBC) 33.7 g/dL Normal 27.0-37.0 [facility] Comment on above: Performed By: #### A CBC, ESR, BUN, CREAT, CREACT, FX ####[place] [address] MCV Auto Entitic volume (RBC) 86.9 fL Normal 80.0-100.0 [facility] Comment on above: Performed By: #### A CBC, ESR, BUN, CREAT, CREACT, FX ####[place] [address] Platelet mean volume Auto Entitic volume (Bld) 10.1 fL Normal 7.4-11.0 [facility] Comment on above: Performed By: #### A CBC, ESR, BUN, CREAT, CREACT, FX ####[place] [address] Platelets Auto #/vol (Bld) 130 /cmm Normal 130.0-400.0 [facility] Comment on above: Performed By: #### A CBC, ESR, BUN, CREAT, CREACT, FX ####[place] [address] RBC Auto #/vol (Bld) 3.01 /cmm Low 4.0-5.4 [facility] Comment on above: Performed By: #### A CBC, ESR, BUN, CREAT, CREACT, FX ####[place] [address] WBC Auto #/vol (Bld) 4.2 /cmm Normal 3.6-11.0 [facility] Comment on above: Performed By: #### A CBC, ESR, BUN, CREAT, CREACT, FX ####[place] [address] CREATININE,SERUMon 8 Creatinine mass conc 1.5 mg/dL High 0.52-1.04 [facility] Comment on above: Performed By: #### A CBC, ESR, BUN, CREAT, CREACT, FX ####[place] [address] EST. GFR, 50 ml/min/1.73sq.m Normal [facility] Comment on above: Performed By: #### A CBC, ESR, BUN, CREAT, CREACT, FX ####Testing performed at [place] [id number] EST. GFR,Non 41 ml/min/1.73sq.m [facility] Comment on above: Performed By: #### A CBC, ESR, BUN, CREAT, CREACT, FX ####[place] [address] GFR/1.73 sq M predicted among non-blacks MDRD vol rate/area (S/P/Bld) Average GFR for 30-39 years old = 109. [facility] Comment on above: Result Comment: Risk And Compliance Analytics Director vasu Kidney disease, GFR = <60.Kidney failure, GFR = <15.The GFR estimate is not adjusted for extreme body surface area or acute process, nor has it been validated for women or ethnic groups other than and . Performed By: #### A CBC, ESR, BUN, CREAT, CREACT, FX ####[place] [address] ESRon 09-13-2018 ESR Velocity (Bld) 49 mm/h High 0-15 [facility] Comment on above: Performed By: #### A CBC, ESR, BUN, CREAT, CREACT, FX ####Testing performed at [place] [id number] FAX REQUESTon 09-13-2018 FAX TO FAX TO DR DEVAN Gutiérrez T [phone] AND TO [facility] AT [phone] [facility] Comment on above: Performed By: #### P HY, BUN, CREAT, FX ####Testing performed at [address] [address] FAX REQUESTon 09-06-2018 FAX TO [phone] [facility] Comment on above: Performed By: #### F X ####Testing performed at [address] [address] BLOOD UREA NITROGENon 2017 Urea nitrogen mass conc (Bld) 21 mg/dL High 7-20 [facility] Comment on above: Performed By: #### P HY, BUN, CREAT, FX ####[place] [address] CREATININE,SERUMon 8 Creatinine mass conc 1.4 mg/dL High 0.52-1.04 [facility] Comment on above: Performed By: #### P HY, BUN, CREAT, FX ####[place] [address] EST. GFR, 54 ml/min/1.73sq.m [facility] Comment on above: Performed By: #### P HY, BUN, CREAT, FX ####[place] [address] EST. GFR,Non 44 ml/min/1.73sq.m [facility] Comment on above: Performed By: #### P HY, BUN, CREAT, FX ####[place] [address] GFR/1.73 sq M predicted among non-blacks MDRD vol rate/area (S/P/Bld) Average GFR for 30-39 years old = 109. [facility] Comment on above: Result Comment: Risk And Compliance Analytics Director vasu Kidney disease, GFR = <60.Kidney failure, GFR = <15.The GFR estimate is not adjusted for extreme body surface area or acute process, nor has it been validated for women or ethnic groups other than and . Performed By: #### P HY, BUN, CREAT, FX ####[place] [address] FAX REQUESTon 08-31-2018 FAX TO [phone] [facility] Comment on above: Performed By: #### P HY, BUN, CREAT, FX ####Testing performed at [place] [id number] GAL MELISA PHYSICIANmateo 08-31-20 18 GAL NEW PHYSICIAN DEVAN UP [facility] Comment on above: Performed By: #### P HY, BUN, CREAT, FX ####Testing performed at [facility] [place] [address] BUNon 08-27-2018 Urea nitrogen mass conc 24 mg/dL High 03-27 [facility] Comment on above: Performed By: #### 2 [id number] ####OVIDIO [address]jh[address] [place] [address] Creatinineon 08-27-2018 Creatinine mass conc 1.6 mg/dL High 0.5-1.1 [facility] Comment on above: Performed By: #### 2 [id number] ####OVIDIO V[address]rcmnc5232 [place] [address] eGFRon 08-27-2018 eGFR AA 43 mL/min/1.73 m2 [facility] Comment on above: Order Comment: Order added by Discern Expert. Performed By: #### 1 [id number] ####OVIDIO PhrCnka6824 [place] [address] GFR/1.73 sq M predicted among non-blacks MDRD vol rate/area (S/P/Bld) 36 mL/min/1.73 m2 [facility] Comment on above: Order Comment: Order added by Discern Expert. Performed By: #### 1 [id number] ####OVIDIO DudGwww2912 [place] [address] Cult,Tissueon 08-26-2018 Cult,Tissue Specimen Description .TISSUE EPIDURAL [...] Trimethoprim/Sulfa <=10 SUSCEPTIBLE Vancomycin <=0.5 SUSCEPTIBLE Normal [facility] Comment on above: Performed By: #### L ACWB #### [facility] [address] [place] [address] Cult,Tissue Specimen Description .SPINE .TISSUE T4 LAMINA [...] Trimethoprim/Sulfa <=10 SUSCEPTIBLE Vancomycin <=0.5 SUSCEPTIBLE Normal [facility] Comment on above: Performed By: #### L ACWB #### [address] [address] Basic Metabolic Profon 08-25 (cont.) Normal [facility] Comment on above: Result Comment: Aver age GFR for 30-39 years old: 107 mL/min/1.73sq m Chronic Kidney Disease: <60 mL/min/1.73sq m Kidney failure: <15 mL/min/1.73sq m eGFR calculated using average adult body mass. Additional eGFR calculator available at: http://www.InsightETE.Yogiyo/multiple_crcl_2012.htm Performed By: #### L ACWB #### [facility] [place] [address] [place] [address] Anion gap molar conc 14 mmol/L Normal 9-17 [facility] Comment on above: Performed By: #### L ACWB #### [facility] [place] [address] [place] [address] Calcium mass conc 9.1 mg/dL Normal 8.6-10.4 [facility] Comment on above: Performed By: #### L ACWB #### [facility] [place] [address] [place] [address] Chloride molar conc 96 mmol/L Low 98-107 [facility] Comment on above: Performed By: #### L ACWB #### [address] [address] CO2 molar conc 23 mmol/L Normal 20-31 [facility] Comment on above: Performed By: #### L ACWB #### [facility] [place] [address] [place] [address] Creatinine mass conc 1.52 mg/dL High 0.50-0.90 [facility] Comment on above: Performed By: #### L ACWB #### [facility] [place] [address] [place] [address] GFR, Amer 46 mL/min Low >60 [facility] Comment on above: Performed By: #### L ACWB #### [facility] [place] [address] [place] [address] GFR,non Amer 38 mL/min Low >60 [facility] Comment on above: Performed By: #### L ACWB #### [address] [address] Glucose mass conc 95 mg/dL Normal 70-99 [facility] Comment on above: Performed By: #### L ACWB #### [facility] [place] [address] [place] [address] Potassium molar conc 4.5 mmol/L Normal 3.7-5.3 [facility] Comment on above: Performed By: #### L ACWB #### [address] [address] Sodium molar conc 133 mmol/L Low 135-144 [facility] Comment on above: Performed By: #### L ACWB #### [facility] [place] [address] [place] [address] Urea nitrogen mass conc 43 mg/dL High 6-20 [facility] Comment on above: Performed By: #### L ACWB #### [address] [address] BUN/CRE Ratio NOT REPORTED Normal 9-20 [facility] Comment on above: Performed By: #### L ACWB #### [address] [address] Staging: NOT REPORTED Normal [facility] Comment on above: Performed By: #### L ACWB #### [address] [address] CBC with Diffon 08-25-2018 Abs. Basophil 0.07 k/uL Normal 0.00-0.20 [facility] Comment on above: Performed By: #### L ACWB #### [address] [address] Abs.Imm.Granulocyte 0.08 k/uL Normal 0.00-0.30 [facility] Comment on above: Performed By: #### L ACWB #### [address] [address] Abs.Neutrophil (Seg) 5.77 k/uL Normal 1.50-8.10 [facility] Comment on above: Performed By: #### L ACWB #### [facility] [facility] [address] [place] [address] 72448 Basophils/100 WBC (Bld) 1 % Normal 0-2 [facility] Comment on above: Performed By: #### L ACWB #### [facility] [address] [place] [address]305 Eosinophils #/vol (Bld) 0.12 10*3/uL Normal 0.00-0.44 [facility] Comment on above: Performed By: #### L ACWB #### [facility] [place] [address] Eosinophils/100 WBC (Bld) 1 % Normal 1-4 [facility] Comment on above: Performed By: #### L ACWB #### [address] [address] Immature granulocytes #/vol (Bld) 1 % High 0 [facility] Comment on above: Performed By: #### L ACWB #### [address] [address] Lymphocytes #/vol (Bld) 1.83 10*3/uL Normal 1.10-3.70 [facility] Comment on above: Performed By: #### L ACWB #### [facility] [address] [place] [address] 61328 Lymphocytes/100 WBC (Bld) 21 % Low 24-43 [facility] Comment on above: Performed By: #### L ACWB #### [address] [address] Monocytes #/vol (Bld) 0.92 10*3/uL Normal 0.10-1.20 [facility] Comment on above: Performed By: #### L ACWB #### [facility] [address] [place] [address] 13887 Monocytes/100 WBC (Bld) 11 % Normal 3-12 [facility] Comment on above: Performed By: #### L ACWB #### [facility] [address] [place] [address] 58982 Neutrophil (Seg) 66 % High 36-65 [facility] Comment on above: Performed By: #### L ACWB #### [facility] [address] [place] [address] 26703 Erythrocyte distribution width Ratio (RBC) 14.6 % High 11.8-14.4 [facility] Comment on above: Performed By: #### L ACWB #### [facility] [address] [place] [address] 16209 Hematocrit Volume Fraction (Bld) 32.6 % Low 36.3-47.1 [facility] Comment on above: Performed By: #### L ACWB #### [facility] [address] [place] [address] 30267 Hemoglobin mass conc (Bld) 10.0 g/dL Low 11.9-15.1 [facility] Comment on above: Performed By: #### L ACWB #### [facility] [address] [place] [address] 77612 MCH Entitic mass (RBC) 28.2 pg Normal 25.2-33.5 [facility] Comment on above: Performed By: #### L ACWB #### [facility] [address] [place] [address] 26066 MCHC mass conc (RBC) 30.7 g/dL Normal 28.4-34.8 [facility] Comment on above: Performed By: #### L ACWB #### [address] [address] MCV Entitic volume (RBC) 91.8 fL Normal 82.6-102.9 [facility] Comment on above: Performed By: #### L ACWB #### [facility] [address] [place] [address] 26269 NRBC Automated 0.0 per 100 WBC Normal 0.0 [facility] Comment on above: Performed By: #### L ACWB #### [facility] [address] [place] [address] 32553 Platelet mean volume Entitic volume (Bld) 10.4 fL Normal 8.1-13.5 [facility] Comment on above: Performed By: #### L ACWB #### [address] [address] Platelets #/vol (Bld) 292 10*3/uL Normal 138-453 [facility] Comment on above: Performed By: #### L ACWB #### [address] [address] RBC #/vol (Bld) 3.55 10*6/uL Low 3.95-5.11 [facility] Comment on above: Performed By: #### L ACWB #### [address] [address] RBC morphology finding Nom (Bld) ANISOCYTOSIS PRESENT Normal [facility] Comment on above: Performed By: #### L ACWB #### [address] [address] WBC #/vol (Bld) 8.8 10*3/uL Normal 3.5-11.3 [facility] Comment on above: Performed By: #### L ACWB #### [address] [address] Auto Diff Performed NOT REPORTED Normal [facility] Comment on above: Performed By: #### L ACWB #### [address] [address] Platelets #/vol (Bld) NOT REPORTED Normal [facility] Comment on above: Performed By: #### L ACWB #### [address] [address] WBC Morphology NOT REPORTED Normal [facility] Comment on above: Performed By: #### L ACWB #### [address] [id number] Fungi,Direct Examon 08-25-20 18 Fungi,Direct Exam Specimen Description .SPINE .TISSUE T4 LAMINA Special Requests NOT REPORTED Direct Exam NO FUNGAL ELEMENTS SEEN Report Status FINAL 08/25/2018 Normal [facility] Comment on above: Performed By: #### L ACWB #### [facility] [address] [place] [address] Magnesiumon 08-25-2018 Magnesium mass conc 2.4 mg/dL Normal 1.6-2.6 [facility] Comment on above: Performed By: #### L ACWB #### [facility] [address] [place], [place] [id number] Procalcitoninon 08-25-2018 Protein mass conc 0.13 ng/mL High <0.09 [facility] Comment on above: Result Comment: Suspected Sepsis: [...] entered into the Change in Procalcitonin Calculator (www.onaboi-xal-pnbwyjglrw.com) to determine the patient's Mortality Risk Prognosis Performed By: #### L ACWB #### [facility] [address] [place], [place] [id number] Cult,Aerobe/Anaerobeon 08-24 Cult,Aerobe/Anaerobe Specimen Descriptio n .SPINE Special Requests NOT REPORTED Direct Exam DUPLICATE ORDER SEE RESULTS FOR TISSUE CULTURE Culture NOT REPORTED Report Status FINAL 08/24/2018 Normal [facility] Comment on above: Performed By: #### S PAG #### [facility] [address] [place] [address] 96528 Cult,Aerobe/Anaerobe Specimen Descriptio n .SPINE Special Requests NOT REPORTED Direct Exam DUPLICATE ORDER SEE RESUULTS FOR TISSUE CULTURE Culture NOT REPORTED Report Status FINAL 08/24/2018 Normal [facility] Comment on above: Performed By: #### S PAG #### [address] [address] FLUORO FOR SURGICAL PROCEDUR ESon 08-24-2018 FLUORO FOR SURGICAL PROCEDURES Radiology exam is complete. No Radiologist dictation. Please follow up with ordering provider. Final result Normal [facility] OPERATIVE REPORTon 8 OPERATIVE REPORT [address] [id number] OPERATIVE REPORT PATIENT NAME: CELINA GASPAR : 1980 MED REC NO: [id number] ROOM: [facility] ACCOUNT NO: [id number] ADMIT DATE: 08/15/2018 PROVIDER: Lita Mccray MD DATE OF PROCEDURE: 08/23/2018 SURGEON: Lita Mccray MD BACKBREAKER: Eliel Larios DO PREOPERATIVE DIAGNOSIS: Epidural abscess, [...] satisfactory condition. LITA MCCRAY MD [id number] Doc#: [id number] CC: Lita Mccray MD [facility] Procalcitoninon 08-24-2018 Protein mass conc 0.16 ng/mL High <0.09 [facility] Comment on above: Result Comment: Suspected Sepsis: [...] entered into the Change in Procalcitonin Calculator (www.ikabhx-eya-kgcsrszzzs.Yogiyo) to determine the patient's Mortality Risk Prognosis Performed By: #### S PAG #### [facility] [address] [place] [address] Basic Metab w/rfx MGon 08-23 (cont.) Normal [facility] Comment on above: Result Comment: Aver age GFR for 30-39 years old: 107 mL/min/1.73sq m Chronic Kidney Disease: <60 mL/min/1.73sq m Kidney failure: <15 mL/min/1.73sq m eGFR calculated using average adult body mass. Additional eGFR calculator available at: http://www.InsightETE.Yogiyo/multiple_crcl_2012.htm Performed By: #### S PAG #### [facility] [address] [place] [address] Anion gap molar conc 14 mmol/L Normal 9-17 [facility] Comment on above: Performed By: #### S PAG #### [facility] [address] [place] [address] Calcium mass conc 9.9 mg/dL Normal 8.6-10.4 [facility] Comment on above: Performed By: #### S PAG #### [facility] [place] [address] Chloride molar conc 99 mmol/L Normal 98-107 [facility] Comment on above: Performed By: #### S PAG #### [facility] [address] [place] [address]26 CO2 molar conc 26 mmol/L Normal 20-31 [facility] Comment on above: Performed By: #### S PAG #### [facility] [address] [place] [address] Creatinine mass conc 1.42 mg/dL High 0.50-0.90 [facility] Comment on above: Performed By: #### S PAG #### [facility] [address] [place] [address] 70031 GFR, Amer 50 mL/min Low >60 [facility] Comment on above: Performed By: #### S PAG #### [facility] [address] [place] [address] GFR,non Amer 41 mL/min Low >60 [facility] Comment on above: Performed By: #### S PAG #### [facility] [address] [place] [address]386 Glucose mass conc 95 mg/dL Normal 70-99 [facility] Comment on above: Performed By: #### S PAG #### [facility] [address] [place] [address]852 Potassium molar conc 4.9 mmol/L Normal 3.7-5.3 [facility] Comment on above: Result Comment: SPEC IMEN SLIGHTLY HEMOLYZED, RESULTS MAY BE ADVERSELY AFFECTED. Performed By: #### S PAG #### [address] [address] Sodium molar conc 139 mmol/L Normal 135-144 [facility] Comment on above: Performed By: #### S PAG #### [address] [address] Urea nitrogen mass conc 31 mg/dL High - [facility] Comment on above: Performed By: #### S PAG #### [address] [address] BUN/CRE Ratio NOT REPORTED Normal - [facility] Comment on above: Performed By: #### S PAG #### [address] [address] Staging: NOT REPORTED Normal [facility] Comment on above: Performed By: #### S PAG #### [address] [address] CBC with Diffon 08-23-2018 Abs. Basophil 0.06 k/uL Normal 0.00-0.20 [facility] Comment on above: Performed By: #### S PAG #### [address] [address] Abs.Imm.Granulocyte 0.22 k/uL Normal 0.00-0.30 [facility] Comment on above: Performed By: #### S PAG #### [address] [address] Abs.Neutrophil (Seg) 4.43 k/uL Normal 1.50-8.10 [facility] Comment on above: Performed By: #### S PAG #### [address] [address] Basophils/100 WBC (Bld) 1 % Normal 0-2 [facility] Comment on above: Performed By: #### S PAG #### [address] [address] Eosinophils #/vol (Bld) 0.15 10*3/uL Normal 0.00-0.44 [facility] Comment on above: Performed By: #### S PAG #### [address] [address] Eosinophils/100 WBC (Bld) 2 % Normal 1-4 [facility] Comment on above: Performed By: #### S PAG #### [address] [address] Erythrocyte distribution width Ratio (RBC) 14.4 % Normal 11.8-14.4 [facility] Comment on above: Performed By: #### S PAG #### [address] [address] Hematocrit Volume Fraction (Bld) 33.2 % Low 36.3-47.1 [facility] Comment on above: Performed By: #### S PAG #### [address] [address] Hemoglobin mass conc (Bld) 10.4 g/dL Low 11.9-15.1 [facility] Comment on above: Performed By: #### S PAG #### [address] [address] Immature granulocytes #/vol (Bld) 3 % High 0 [facility] Comment on above: Performed By: #### S PAG #### [address] [address] Lymphocytes #/vol (Bld) 2.22 10*3/uL Normal 1.10-3.70 [facility] Comment on above: Performed By: #### S PAG #### [address] [address] Lymphocytes/100 WBC (Bld) 29 % Normal 24-43 [facility] Comment on above: Performed By: #### S PAG #### [address] [address] MCH Entitic mass (RBC) 27.7 pg Normal 25.2-33.5 [facility] Comment on above: Performed By: #### S PAG #### [address] [address] MCHC mass conc (RBC) 31.3 g/dL Normal 28.4-34.8 [facility] Comment on above: Performed By: #### S PAG #### [address] [address] MCV Entitic volume (RBC) 88.3 fL Normal 82.6-102.9 [facility] Comment on above: Performed By: #### S PAG #### [address] [address] Monocytes #/vol (Bld) 0.63 10*3/uL Normal 0.10-1.20 [facility] Comment on above: Performed By: #### S PAG #### [address] [address] Monocytes/100 WBC (Bld) 8 % Normal 3-12 [facility] Comment on above: Performed By: #### S PAG #### [facility] [address] [place] [address]226 Neutrophil (Seg) 57 % Normal 36-65 [facility] Comment on above: Performed By: #### S PAG #### [address] [address] NRBC Automated 0.0 per 100 WBC Normal 0.0 [facility] Comment on above: Performed By: #### S PAG #### [address] [place] [address] Platelets #/vol (Bld) See Reflexed IPF Result Normal 138-453 [facility] Comment on above: Performed By: #### S PAG #### [facility] [address] [place] [address] 20773 RBC #/vol (Bld) 3.76 10*6/uL Low 3.95-5.11 [facility] Comment on above: Performed By: #### S PAG #### [facility] [address] [place] [address]84 WBC #/vol (Bld) 7.7 10*3/uL Normal 3.5-11.3 [facility] Comment on above: Performed By: #### S PAG #### [facility] [address] [place] [address] 90457 Auto Diff Performed NOT REPORTED Normal [facility] Comment on above: Performed By: #### S PAG #### [facility] [address] [place] [address] 7[address]45 Platelet mean volume Entitic volume (Bld) NOT REPORTED Normal 8.1-13.5 [facility] Comment on above: Performed By: #### S PAG #### [facility] [address] [place] [address] 47782 Platelets #/vol (Bld) NOT REPORTED Normal [facility] Comment on above: Performed By: #### S PAG #### [facility] [address] [place] [address] 63778 RBC morphology finding Nom (Bld) NOT REPORTED Normal [facility] Comment on above: Performed By: #### S PAG #### [facility] [address] [place] [address] WBC Morphology NOT REPORTED Normal [facility] Comment on above: Performed By: #### S PAG #### [address] [address] Cult,Bloodon 08-23-2018 Cult,Blood Specimen Description .BLOOD Special Requests L AC 6ML Culture NO GROWTH 6 DAYS Report Status FINAL 08/23/2018 Normal [facility] Comment on above: Performed By: #### S PAG #### [address] [address] Cult,Blood Specimen Description .BLOOD Special Requests L FOREARM 6ML Culture NO GROWTH 6 DAYS Report Status FINAL 08/23/2018 Normal [facility] Comment on above: Performed By: #### S PAG #### [address] [address] PLT, Immature Fract.on 08-23 Platelet, Fluoresc. 113 k/uL Low 138-453 [facility] Comment on above: Performed By: #### S PAG #### [address] [address] PLT, Immature Fract. 3.7 % Normal 1.1-10.3 [facility] Comment on above: Performed By: #### S PAG #### [address] [address] CBC with Diffon 08-22-2018 Abs. Basophil 0.00 k/uL Normal 0.0-0.2 [facility] Comment on above: Performed By: #### U LAG #### [address] [address] Abs.Imm.Granulocyte 0.30 k/uL Normal 0.00-0.30 [facility] Comment on above: Performed By: #### U LAG #### [address] [address] Abs.Neutrophil (Seg) 4.87 k/uL Normal 1.8-7.7 [facility] Comment on above: Performed By: #### U LAG #### [address] [address] Basophils/100 WBC (Bld) 0 % Normal 0-2 [facility] Comment on above: Performed By: #### U LAG #### [address] [address] Eosinophils #/vol (Bld) 0.00 10*3/uL Normal 0.0-0.4 [facility] Comment on above: Performed By: #### U LAG #### [address] [address] Eosinophils/100 WBC (Bld) 0 % Low 1-4 [facility] Comment on above: Performed By: #### U LAG #### [address] [address] Immature granulocytes #/vol (Bld) 4 % High 0 [facility] Comment on above: Performed By: #### U LAG #### [address] [address] Lymphocytes #/vol (Bld) 1.88 10*3/uL Normal 1.0-4.8 [facility] Comment on above: Performed By: #### U LAG #### [address] [address] Lymphocytes/100 WBC (Bld) 25 % Normal 24-44 [facility] Comment on above: Performed By: #### U LAG #### [address] [address] Monocytes #/vol (Bld) 0.45 10*3/uL Normal 0.1-0.8 [facility] Comment on above: Performed By: #### U LAG #### [address] [address] Monocytes/100 WBC (Bld) 6 % Normal 1-7 [facility] Comment on above: Performed By: #### U LAG #### [address] [address] Morphology Interp Rehan (Bld) ANISOCYTOSIS PRESENT Normal [facility] Comment on above: Performed By: #### U LAG #### [facility] [address] [place] [address]15 Neutrophil (Seg) 65 % Normal 36-66 [facility] Comment on above: Performed By: #### U LAG #### [address] [address] Erythrocyte distribution width Ratio (RBC) 14.5 % High 11.8-14.4 [facility] Comment on above: Performed By: #### U LAG #### [address] [address] Hematocrit Volume Fraction (Bld) 38.1 % Normal 36.3-47.1 [facility] Comment on above: Performed By: #### U LAG #### [address] [address] Hemoglobin mass conc (Bld) 11.5 g/dL Low 11.9-15.1 [facility] Comment on above: Performed By: #### U LAG #### [facility] [address] [place] [address] 39912 MCH Entitic mass (RBC) 28.3 pg Normal 25.2-33.5 [facility] Comment on above: Performed By: #### U LAG #### [facility] [address] [place] [address] 99049 MCHC mass conc (RBC) 30.2 g/dL Normal 28.4-34.8 [facility] Comment on above: Performed By: #### U LAG #### [address] [address] MCV Entitic volume (RBC) 93.6 fL Normal 82.6-102.9 [facility] Comment on above: Performed By: #### U LAG #### [facility] [address] [place] [address]755 NRBC Automated 0.0 per 100 WBC Normal 0.0 [facility] Comment on above: Performed By: #### U LAG #### [facility] [address] [place] [address]998 Platelet mean volume Entitic volume (Bld) 10.7 fL Normal 8.1-13.5 [facility] Comment on above: Performed By: #### U LAG #### [address] [address] Platelets #/vol (Bld) 265 10*3/uL Normal 138-453 [facility] Comment on above: Performed By: #### U LAG #### [address] [address] RBC #/vol (Bld) 4.07 10*6/uL Normal 3.95-5.11 [facility] Comment on above: Performed By: #### U LAG #### [facility] [address] [place] [address]994 WBC #/vol (Bld) 7.5 10*3/uL Normal 3.5-11.3 [facility] Comment on above: Performed By: #### U LAG #### [address] [address] Auto Diff Performed NOT REPORTED Normal [facility] Comment on above: Performed By: #### U LAG #### [facility] [address] [place] [address] 9[address]88 Platelets #/vol (Bld) NOT REPORTED Normal [facility] Comment on above: Performed By: #### U LAG #### [facility] [facility] [place] [address] RBC morphology finding Nom (Bld) NOT REPORTED Normal [facility] Comment on above: Performed By: #### U LAG #### [facility] [address] [place] [address] WBC Morphology NOT REPORTED Normal [facility] Comment on above: Performed By: #### U LAG #### [facility] [address] [place] [address] Comp Metabolic Pr/rfx MGon 1 10-22-2017 Albumin mass conc 3.2 g/dL Low 3.5-5.2 [facility] Comment on above: Performed By: #### U LAG #### [facility] [address] [place] [address]1477 Albumin/Globulin mass ratio 0.8 {ratio} Low 1.0-2.5 [facility] Comment on above: Performed By: #### U LAG #### [facility] [address] [place] [address]158 Alkaline Phos 90 U/L Normal 35-104 [facility] Comment on above: Performed By: #### U LAG #### [facility] [address] [place] [address] 39878 ALT enzyme act/vol 18 U/L Normal 5-33 [facility] Comment on above: Performed By: #### U LAG #### [facility] [address] [place] [address]12 AST enzyme act/vol 16 U/L Normal <32 [facility] Comment on above: Performed By: #### U LAG #### [facility] [address] [place] [address]84 Protein mass conc 7.0 g/dL Normal 6.4-8.3 [facility] Comment on above: Performed By: #### U LAG #### [facility] [address] [place] [address]37 (cont.) Normal [facility] Comment on above: Result Comment: Aver age GFR for 30-39 years old: 107 mL/min/1.73sq m Chronic Kidney Disease: <60 mL/min/1.73sq m Kidney failure: <15 mL/min/1.73sq m eGFR calculated using average adult body mass. Additional eGFR calculator available at: http://www.InsightETE.Yogiyo/multiple_crcl_2012.htm Performed By: #### U LAG #### [facility] [address] [place] [address] Anion gap molar conc 15 mmol/L Normal 9-17 [facility] Comment on above: Performed By: #### U LAG #### [facility] [address] [place] [address]266 Bilirubin Ql (U) 0.34 mg/dL Normal 0.3-1.2 [facility] Comment on above: Performed By: #### U LAG #### [facility] [address] [place] [address] 06771 Calcium mass conc 9.7 mg/dL Normal 8.6-10.4 [facility] Comment on above: Performed By: #### U LAG #### [facility] [address] [place] [address] Chloride molar conc 100 mmol/L Normal 98-107 [facility] Comment on above: Performed By: #### U LAG #### [facility] [address] [place] [address] 28841 CO2 molar conc 24 mmol/L Normal 20-31 [facility] Comment on above: Performed By: #### U LAG #### [facility] [address] [place] [address]51 Creatinine mass conc 1.02 mg/dL High 0.50-0.90 [facility] Comment on above: Performed By: #### U LAG #### [facility] [address] [place] [address]32 GFR, Amer >60 Normal >60 [facility] Comment on above: Performed By: #### U LAG #### [facility] [address] [place] [address] 01275 GFR,non Amer >60 Normal >60 [facility] Comment on above: Performed By: #### U LAG #### [facility] [address] [place] [address] 6[address]30 Glucose mass conc 101 mg/dL High 70-99 [facility] Comment on above: Performed By: #### U LAG #### [facility] [address] [place] [address] 79868 Potassium molar conc 4.5 mmol/L Normal 3.7-5.3 [facility] Comment on above: Performed By: #### U LAG #### [facility] [address] [place] [address] 14483 Sodium molar conc 139 mmol/L Normal 135-144 [facility] Comment on above: Performed By: #### U LAG #### [facility] [address] [place] [address] Urea nitrogen mass conc 19 mg/dL Normal 6-20 [facility] Comment on above: Performed By: #### U LAG #### [facility] [address] [place] [address]56 BUN/CRE Ratio NOT REPORTED Normal 9-20 [facility] Comment on above: Performed By: #### U LAG #### [facility] [place] [address] [place] [address]804 Staging: NOT REPORTED Normal [facility] Comment on above: Performed By: #### U LAG #### [employer] [address] [place] [address] 33472 Magnesiumon 08-22-2018 Magnesium mass conc 2.4 mg/dL Normal 1.6-2.6 [facility] Comment on above: Performed By: #### U LAG #### [facility] [place] [address] [place] [address] 28858 Vancomycin Troughon 08-22-20 18 Vancomycin Trough 20.2 ug/mL Critically high 10.0-20.0 [facility] Comment on above: Result Comment: High er trough serum vancomycin concentrations of 15-20 ug/mL are recommended for complicated infections such as bacteremia, endocarditis, osteomyelitis, meningitis, and hospital acquired pneumonia. ADDED ON Performed By: #### U LAG #### [employer] [address] [place] [address] 22988 Date last dose, NOT REPORTED Normal [facility] Comment on above: Performed By: #### U LAG #### [place] [address] [place] [address] 83473 Dose amount, NOT REPORTED Normal [facility] Comment on above: Performed By: #### U LAG #### [place] [address] [place] [address] 49799 Time last dose, NOT REPORTED Normal [facility] Comment on above: Performed By: #### U LAG #### [place] [address] [place] [address] 36159 CBC with Diffon 08-21-2018 Abs. Basophil 0.08 k/uL Normal 0.00-0.20 [facility] Comment on above: Performed By: #### U LAG #### [place] [address] [place] [address] 30567 Abs.Imm.Granulocyte 0.50 k/uL High 0.00-0.30 [facility] Comment on above: Performed By: #### U LAG #### [address] [address] Abs.Neutrophil (Seg) 4.73 k/uL Normal 1.50-8.10 [facility] Comment on above: Performed By: #### U LAG #### [address] [address] Basophils/100 WBC (Bld) 1 % Normal 0-2 [facility] Comment on above: Performed By: #### U LAG #### [address] [address] Eosinophils #/vol (Bld) 0.17 10*3/uL Normal 0.00-0.44 [facility] Comment on above: Performed By: #### U LAG #### [address] [address] Eosinophils/100 WBC (Bld) 2 % Normal 1-4 [facility] Comment on above: Performed By: #### U LAG #### [address] [address] Immature granulocytes #/vol (Bld) 6 % High 0 [facility] Comment on above: Performed By: #### U LAG #### [address] [address] Lymphocytes #/vol (Bld) 2.24 10*3/uL Normal 1.10-3.70 [facility] Comment on above: Performed By: #### U LAG #### [address] [address] Lymphocytes/100 WBC (Bld) 27 % Normal 24-43 [facility] Comment on above: Performed By: #### U LAG #### [address] [address] Monocytes #/vol (Bld) 0.58 10*3/uL Normal 0.10-1.20 [facility] Comment on above: Performed By: #### U LAG #### [address] [address] Monocytes/100 WBC (Bld) 7 % Normal 3-12 [facility] Comment on above: Performed By: #### U LAG #### [address] [address] Morphology Interp Rehan (Bld) ANISOCYTOSIS PRESENT Normal [facility] Comment on above: Performed By: #### U LAG #### [address] 13902 Neutrophil (Seg) 57 % Normal 36-65 [facility] Comment on above: Performed By: #### U LAG #### [address] [address] Erythrocyte distribution width Ratio (RBC) 14.6 % High 11.8-14.4 [facility] Comment on above: Performed By: #### U LAG #### [address] [address]51 Hematocrit Volume Fraction (Bld) 38.5 % Normal 36.3-47.1 [facility] Comment on above: Performed By: #### U LAG #### [address] [address] Hemoglobin mass conc (Bld) 11.5 g/dL Low 11.9-15.1 [facility] Comment on above: Performed By: #### U LAG #### [address] [address]60 MCH Entitic mass (RBC) 28.2 pg Normal 25.2-33.5 [facility] Comment on above: Performed By: #### U LAG #### [address] [address]2280 MCHC mass conc (RBC) 29.9 g/dL Normal 28.4-34.8 [facility] Comment on above: Performed By: #### U LAG #### [address] [address]21 MCV Entitic volume (RBC) 94.4 fL Normal 82.6-102.9 [facility] Comment on above: Performed By: #### U LAG #### [facility] [place] [address] [place] [address] 88035 NRBC Automated 0.0 per 100 WBC Normal 0.0 [facility] Comment on above: Performed By: #### U LAG #### [address] 76547 Platelet mean volume Entitic volume (Bld) 10.5 fL Normal 8.1-13.5 [facility] Comment on above: Performed By: #### U LAG #### [address] [address] Platelets #/vol (Bld) 264 10*3/uL Normal 138-453 [facility] Comment on above: Performed By: #### U LAG #### [address] [address] RBC #/vol (Bld) 4.08 10*6/uL Normal 3.95-5.11 [facility] Comment on above: Performed By: #### U LAG #### [address] [address] WBC #/vol (Bld) 8.3 10*3/uL Normal 3.5-11.3 [facility] Comment on above: Performed By: #### U LAG #### [address] [address] Auto Diff Performed NOT REPORTED Normal [facility] Comment on above: Performed By: #### U LAG #### [place] [facility] [place] [address] Platelets #/vol (Bld) NOT REPORTED Normal [facility] Comment on above: Performed By: #### U LAG #### [facility] [place] [address] [place] [address] 62780 RBC morphology finding Nom (Bld) NOT REPORTED Normal [facility] Comment on above: Performed By: #### U LAG #### [facility] [place] [address] [place] [address] 62902 WBC Morphology NOT REPORTED Normal [facility] Comment on above: Performed By: #### U LAG #### [facility] [place] [address] [place] [address] 38940 Comp Metabolic Pr/rfx MGon 1 10-21-2017 (cont.) Normal [facility] Comment on above: Result Comment: Aver age GFR for 30-39 years old: 107 mL/min/1.73sq m Chronic Kidney Disease: <60 mL/min/1.73sq m Kidney failure: <15 mL/min/1.73sq m eGFR calculated using average adult body mass. Additional eGFR calculator available at: http://www.InsightETE.Yogiyo/multiple_crcl_2012.htm Performed By: #### U LAG #### [facility] [address] [place] [address] 81542 Albumin mass conc 2.9 g/dL Low 3.5-5.2 [facility] Comment on above: Performed By: #### U LAG #### [facility] [place] [address] [place] [address] 40301 Albumin/Globulin mass ratio 0.7 {ratio} Low 1.0-2.5 [facility] Comment on above: Performed By: #### U LAG #### [facility] [place] [address] [place] [address] 35605 Alkaline Phos 98 U/L Normal 35-104 [facility] Comment on above: Performed By: #### U LAG #### [facility] [address] [place] [address] 57290 ALT enzyme act/vol 19 U/L Normal 5-33 [facility] Comment on above: Performed By: #### U LAG #### [facility] [place] [address] [place] [address] 78199 Anion gap molar conc 14 mmol/L Normal 9-17 [facility] Comment on above: Performed By: #### U LAG #### [facility] [place] [address] [place] [address] 01958 AST enzyme act/vol 21 U/L Normal <32 [facility] Comment on above: Performed By: #### U LAG #### [facility] [place] [address] [place] [address] 35508 Bilirubin Ql (U) 0.32 mg/dL Normal 0.3-1.2 [facility] Comment on above: Performed By: #### U LAG #### [facility] [place] [address] [place] [address] 20688 Calcium mass conc 9.1 mg/dL Normal 8.6-10.4 [facility] Comment on above: Performed By: #### U LAG #### [facility] [place] [address] [place] [address] 71542 Chloride molar conc 102 mmol/L Normal 98-107 [facility] Comment on above: Performed By: #### U LAG #### [facility] [place] [address] [place] [address] 25515 CO2 molar conc 23 mmol/L Normal 20-31 [facility] Comment on above: Performed By: #### U LAG #### [facility] [place] [address] [place] [address] 86336 Creatinine mass conc 0.90 mg/dL Normal 0.50-0.90 [facility] Comment on above: Performed By: #### U LAG #### [place] [address] [place] [address] 62561 GFR, Amer >60 Normal >60 [facility] Comment on above: Performed By: #### U LAG #### [place] [address] [place] [address] 48279 GFR,non Amer >60 Normal >60 [facility] Comment on above: Performed By: #### U LAG #### [facility] [address] [place] [address] 32979 Glucose mass conc 108 mg/dL High 70-99 [facility] Comment on above: Performed By: #### U LAG #### [facility] [address] [place] [address] 28483 Potassium molar conc 4.6 mmol/L Normal 3.7-5.3 [facility] Comment on above: Performed By: #### U LAG #### [facility] [address] [place] [address] 70339 Protein mass conc 6.9 g/dL Normal 6.4-8.3 [facility] Comment on above: Performed By: #### U LAG #### [facility] [address] [place] [address] 49606 Sodium molar conc 139 mmol/L Normal 135-144 [facility] Comment on above: Performed By: #### U LAG #### [place] [address] [place] [address] 80310 Urea nitrogen mass conc 17 mg/dL Normal 6-20 [facility] Comment on above: Performed By: #### U LAG #### [facility] [address] [place] [address] 78404 BUN/CRE Ratio NOT REPORTED Normal 9-20 [facility] Comment on above: Performed By: #### U LAG #### [facility] [address] [place] [address] Staging: NOT REPORTED Normal [facility] Comment on above: Performed By: #### U LAG #### [facility] [address] [place] [address] Cult,Bloodon 08-21-2018 Cult,Blood Specimen Description .BLOOD Special Requests L AC 20ML Culture POSITIVE Blood Culture CALLED TO MIS Medina [id number] [id number] DIRECT GRAM STAIN FROM BOTTLE: GRAM POSITIVE COCCI IN CLUSTERS METHICILLIN RESISTANT STAPHYLOCOCCUS AUREUS For susceptibility, refer to previous culture. Report Status FINAL 08/21/2018 Normal [facility] Comment on above: Performed By: #### U LAG #### [facility] [address] [place] [address] 46205 MRI FOOT LEFT W WO CONTRASTo n [...] Murali Goff MD 08/21/18 Final result Normal [facility] Magnesiumon 08-21-2018 Magnesium mass conc 2.4 mg/dL Normal 1.6-2.6 [facility] Comment on above: Performed By: #### U LAG #### [place] [address] Procalcitoninon 08-21-2018 Protein mass conc 0.27 ng/mL High <0.09 [facility] Comment on above: Result Comment: Suspected Sepsis: [...] entered into the Change in Procalcitonin Calculator ([email or web address]-ycy-[email or web address].com) to determine the patient's Mortality Risk Prognosis Performed By: #### U LAG #### [address] [address] C-Reactive Proteinon 018 CRP mass conc 50.4 mg/L High 0.0-5.0 [facility] Comment on above: Performed By: #### L ACDS, TROPI, PRCAL, MYCM #### [address] [address] CBC with Diffon 08-20-2018 Abs. Basophil 0.08 k/uL Normal 0.0-0.2 [facility] Comment on above: Performed By: #### L ACDS, TROPI, PRCAL, MYCM #### [address] [address] Abs.Imm.Granulocyte 0.42 k/uL High 0.00-0.30 [facility] Comment on above: Performed By: #### L ACDS, TROPI, PRCAL, MYCM #### [address] [address] Abs.Neutrophil (Seg) 4.57 k/uL Normal 1.8-7.7 [facility] Comment on above: Performed By: #### L ACDS, TROPI, PRCAL, MYCM #### [facility] [address] [place] [address] 23309 Basophils/100 WBC (Bld) 1 % Normal 0-2 [facility] Comment on above: Performed By: #### L ACDS, TROPI, PRCAL, MYCM #### [address] [address] Eosinophils #/vol (Bld) 0.25 10*3/uL Normal 0.0-0.4 [facility] Comment on above: Performed By: #### L ACDS, TROPI, PRCAL, MYCM #### [address] [address]257 Eosinophils/100 WBC (Bld) 3 % Normal 1-4 [facility] Comment on above: Performed By: #### L ACDS, TROPI, PRCAL, MYCM #### [address] [address]66 Immature granulocytes #/vol (Bld) 5 % High 0 [facility] Comment on above: Performed By: #### L ACDS, TROPI, PRCAL, MYCM #### [address] [address] Lymphocytes #/vol (Bld) 2.32 10*3/uL Normal 1.0-4.8 [facility] Comment on above: Performed By: #### L ACDS, TROPI, PRCAL, MYCM #### [address] [address] Lymphocytes/100 WBC (Bld) 28 % Normal 24-44 [facility] Comment on above: Performed By: #### L ACDS, TROPI, PRCAL, MYCM #### [address] [address] Monocytes #/vol (Bld) 0.66 10*3/uL Normal 0.1-0.8 [facility] Comment on above: Performed By: #### L ACDS, TROPI, PRCAL, MYCM #### [address] [address] Monocytes/100 WBC (Bld) 8 % High 1-7 [facility] Comment on above: Performed By: #### L ACDS, TROPI, PRCAL, MYCM #### [address] [place] [address] Morphology Interp Rehan (Bld) ANISOCYTOSIS PRESENT Normal [facility] Comment on above: Performed By: #### L ACDS, TROPI, PRCAL, MYCM #### [facility] [address] [place] [address] 16809 Neutrophil (Seg) 55 % Normal 36-66 [facility] Comment on above: Performed By: #### L ACDS, TROPI, PRCAL, MYCM #### [facility] [address] [place] [address] 19205 Erythrocyte distribution width Ratio (RBC) 14.6 % High 11.8-14.4 [facility] Comment on above: Performed By: #### L ACDS, TROPI, PRCAL, MYCM #### [facility] [address] [place] [address] 36425 Hematocrit Volume Fraction (Bld) 33.5 % Low 36.3-47.1 [facility] Comment on above: Performed By: #### L ACDS, TROPI, PRCAL, MYCM #### [facility] [address] [place] [address] 03242 Hemoglobin mass conc (Bld) 10.2 g/dL Low 11.9-15.1 [facility] Comment on above: Performed By: #### L ACDS, TROPI, PRCAL, MYCM #### [facility] [address] [place] [address] 36446 MCH Entitic mass (RBC) 27.9 pg Normal 25.2-33.5 [facility] Comment on above: Performed By: #### L ACDS, TROPI, PRCAL, MYCM #### [facility] [address] [place] [address] 76807 MCHC mass conc (RBC) 30.4 g/dL Normal 28.4-34.8 [facility] Comment on above: Performed By: #### L ACDS, TROPI, PRCAL, MYCM #### [address] [address] MCV Entitic volume (RBC) 91.5 fL Normal 82.6-102.9 [facility] Comment on above: Performed By: #### L ACDS, TROPI, PRCAL, MYCM #### [address] 8[address]84 NRBC Automated 0.0 per 100 WBC Normal 0.0 [facility] Comment on above: Performed By: #### L ACDS, TROPI, PRCAL, MYCM #### [address] [address]54 Platelet mean volume Entitic volume (Bld) 11.0 fL Normal 8.1-13.5 [facility] Comment on above: Performed By: #### L ACDS, TROPI, PRCAL, MYCM #### [address] [address] Platelets #/vol (Bld) 211 10*3/uL Normal 138-453 [facility] Comment on above: Performed By: #### L ACDS, TROPI, PRCAL, MYCM #### [address] [address] RBC #/vol (Bld) 3.66 10*6/uL Low 3.95-5.11 [facility] Comment on above: Performed By: #### L ACDS, TROPI, PRCAL, MYCM #### [address] [address] WBC #/vol (Bld) 8.3 10*3/uL Normal 3.5-11.3 [facility] Comment on above: Performed By: #### L ACDS, TROPI, PRCAL, MYCM #### [address] [address] Auto Diff Performed NOT REPORTED Normal [facility] Comment on above: Performed By: #### L ACDS, TROPI, PRCAL, MYCM #### [place] [address] [place] [address] 98867 Platelets #/vol (Bld) NOT REPORTED Normal [facility] Comment on above: Performed By: #### L ACDS, TROPI, PRCAL, MYCM #### [place] [address] [place] [address] 12751 RBC morphology finding Nom (Bld) NOT REPORTED Normal [facility] Comment on above: Performed By: #### L ACDS, TROPI, PRCAL, MYCM #### [place] [address] [place] [address] 48464 WBC Morphology NOT REPORTED Normal [facility] Comment on above: Performed By: #### L ACDS, TROPI, PRCAL, MYCM #### [facility] [address] [place] [address] 30367 Comp Metabolic Pr/rfx MGon 1 10-20-2017 (cont.) Normal [facility] Comment on above: Result Comment: Aver age GFR for 30-39 years old: 107 mL/min/1.73sq m Chronic Kidney Disease: <60 mL/min/1.73sq m Kidney failure: <15 mL/min/1.73sq m eGFR calculated using average adult body mass. Additional eGFR calculator available at: http://www.InsightETE.com/multiple_crcl_2012.htm Performed By: #### L ACDS, TROPI, PRCAL, MYCM #### [place] [address] [place] [address] 81315 Albumin mass conc 3.1 g/dL Low 3.5-5.2 [facility] Comment on above: Performed By: #### L ACDS, TROPI, PRCAL, MYCM #### [facility] [address] [place] [address] 54836 Albumin/Globulin mass ratio 0.9 {ratio} Low 1.0-2.5 [facility] Comment on above: Performed By: #### L ACDS, TROPI, PRCAL, MYCM #### [address] [address] Alkaline Phos 83 U/L Normal 35-104 [facility] Comment on above: Performed By: #### L ACDS, TROPI, PRCAL, MYCM #### [facility] [address] [place] [address] 71675 ALT enzyme act/vol 17 U/L Normal 5-33 [facility] Comment on above: Performed By: #### L ACDS, TROPI, PRCAL, MYCM #### [facility] [address] [place] [address] 24343 Anion gap molar conc 11 mmol/L Normal 9-17 [facility] Comment on above: Performed By: #### L ACDS, TROPI, PRCAL, MYCM #### [facility] [address] [place] [address] 51314 AST enzyme act/vol 18 U/L Normal <32 [facility] Comment on above: Performed By: #### L ACDS, TROPI, PRCAL, MYCM #### [facility] [address] [place] [address] 60648 Bilirubin Ql (U) 0.29 mg/dL Low 0.3-1.2 [facility] Comment on above: Performed By: #### L ACDS, TROPI, PRCAL, MYCM #### [facility] [address] [place] [address] 70030 Calcium mass conc 9.0 mg/dL Normal 8.6-10.4 [facility] Comment on above: Performed By: #### L ACDS, TROPI, PRCAL, MYCM #### [address] [address] Chloride molar conc 101 mmol/L Normal 98-107 [facility] Comment on above: Performed By: #### L ACDS, TROPI, PRCAL, MYCM #### [address] [address]51 CO2 molar conc 27 mmol/L Normal 20-31 [facility] Comment on above: Performed By: #### L ACDS, TROPI, PRCAL, MYCM #### [address] [address] Creatinine mass conc 0.97 mg/dL High 0.50-0.90 [facility] Comment on above: Performed By: #### L ACDS, TROPI, PRCAL, MYCM #### [facility] [address] [place] [address] 25707 GFR, Amer >60 Normal >60 [facility] Comment on above: Performed By: #### L ACDS, TROPI, PRCAL, MYCM #### [facility] [address] [place] [address] 12547 GFR,non Amer >60 Normal >60 [facility] Comment on above: Performed By: #### L ACDS, TROPI, PRCAL, MYCM #### [facility] [address] [place] [address] 24186 Glucose mass conc 105 mg/dL High 70-99 [facility] Comment on above: Performed By: #### L ACDS, TROPI, PRCAL, MYCM #### [facility] [address] [place] [address] 68307 Potassium molar conc 4.4 mmol/L Normal 3.7-5.3 [facility] Comment on above: Performed By: #### L ACDS, TROPI, PRCAL, MYCM #### [facility] [address] [place] [address] 70367 Protein mass conc 6.6 g/dL Normal 6.4-8.3 [facility] Comment on above: Performed By: #### L ACDS, TROPI, PRCAL, MYCM #### [facility] [address] [place] [address] 22935 Sodium molar conc 139 mmol/L Normal 135-144 [facility] Comment on above: Performed By: #### L ACDS, TROPI, PRCAL, MYCM #### [facility] [address] [place] [address] 74295 Urea nitrogen mass conc 15 mg/dL Normal 6-20 [facility] Comment on above: Performed By: #### L ACDS, TROPI, PRCAL, MYCM #### [facility] [address] [place] [address] 21525 BUN/CRE Ratio NOT REPORTED Normal - [facility] Comment on above: Performed By: #### L ACDS, TROPI, PRCAL, MYCM #### [facility] [address] [place] [address] 54560 Staging: NOT REPORTED Normal [facility] Comment on above: Performed By: #### L ACDS, TROPI, PRCAL, MYCM #### [facility] [address] [place] [address] 85996 Magnesiumon 08-20-2018 Magnesium mass conc 2.2 mg/dL Normal 1.6-2.6 [facility] Comment on above: Performed By: #### L ACDS, TROPI, PRCAL, MYCM #### [place] [address] [place] [address]508 Sedimentation Rateon 018 Sedimentation Rate 100 mm High 0-20 [facility] Comment on above: Performed By: #### L ACDS, TROPI, PRCAL, MYCM #### [address] [address] XR FOOT LEFT (MIN 3 VIEWS)on 08-20-2018 [...] Andrey Angelo MD 08/20/18 Final result Normal [facility] CBC with Diffon 08-19-2018 Abs. Basophil 0.00 k/uL Normal 0.0-0.2 [facility] Comment on above: Performed By: #### L ACDS, TROPI, PRCAL, MYCM #### [address] [address] Abs.Imm.Granulocyte 0.42 k/uL High 0.00-0.30 [facility] Comment on above: Performed By: #### L ACDS, TROPI, PRCAL, MYCM #### [facility] [address] [place] [address] 43335 Abs.Neutrophil (Seg) 2.70 k/uL Normal 1.8-7.7 [facility] Comment on above: Performed By: #### L ACDS, TROPI, PRCAL, MYCM #### [facility] [address] [place] [address] 36515 Basophils/100 WBC (Bld) 0 % Normal 0-2 [facility] Comment on above: Performed By: #### L ACDS, TROPI, PRCAL, MYCM #### [facility] [address] [place] [address] 49843 Eosinophils #/vol (Bld) 0.30 10*3/uL Normal 0.0-0.4 [facility] Comment on above: Performed By: #### L ACDS, TROPI, PRCAL, MYCM #### [address] [address] Eosinophils/100 WBC (Bld) 5 % High 1-4 [facility] Comment on above: Performed By: #### L ACDS, TROPI, PRCAL, MYCM #### [address] [address] Immature granulocytes #/vol (Bld) 7 % High 0 [facility] Comment on above: Performed By: #### L ACDS, TROPI, PRCAL, MYCM #### [address] [address] Lymphocytes #/vol (Bld) 2.22 10*3/uL Normal 1.0-4.8 [facility] Comment on above: Performed By: #### L ACDS, TROPI, PRCAL, MYCM #### [address] [address] Lymphocytes/100 WBC (Bld) 37 % Normal 24-44 [facility] Comment on above: Performed By: #### L ACDS, TROPI, PRCAL, MYCM #### [address] [address] Monocytes #/vol (Bld) 0.36 10*3/uL Normal 0.1-0.8 [facility] Comment on above: Performed By: #### L ACDS, TROPI, PRCAL, MYCM #### [address] [address] Monocytes/100 WBC (Bld) 6 % Normal 1-7 [facility] Comment on above: Performed By: #### L ACDS, TROPI, PRCAL, MYCM #### [address] [address] Morphology Interp Rehan (Bld) ANISOCYTOSIS PRESENT Normal [facility] Comment on above: Performed By: #### L ACDS, TROPI, PRCAL, MYCM #### [facility] [address] [place] [address] Neutrophil (Seg) 45 % Normal 36-66 [facility] Comment on above: Performed By: #### L ACDS, TROPI, PRCAL, MYCM #### [facility] [address] [place] [address] Erythrocyte distribution width Ratio (RBC) 14.6 % High 11.8-14.4 [facility] Comment on above: Performed By: #### L ACDS, TROPI, PRCAL, MYCM #### [address] [address] Hematocrit Volume Fraction (Bld) 34.4 % Low 36.3-47.1 [facility] Comment on above: Performed By: #### L ACDS, TROPI, PRCAL, MYCM #### [address] [address] Hemoglobin mass conc (Bld) 10.4 g/dL Low 11.9-15.1 [facility] Comment on above: Performed By: #### L ACDS, TROPI, PRCAL, MYCM #### [facility] [address] [place] [address] MCH Entitic mass (RBC) 28.0 pg Normal 25.2-33.5 [facility] Comment on above: Performed By: #### L ACDS, TROPI, PRCAL, MYCM #### [facility] [address] [place] [address] 27794 MCHC mass conc (RBC) 30.2 g/dL Normal 28.4-34.8 [facility] Comment on above: Performed By: #### L ACDS, TROPI, PRCAL, MYCM #### [address] [address] MCV Entitic volume (RBC) 92.7 fL Normal 82.6-102.9 [facility] Comment on above: Performed By: #### L ACDS, TROPI, PRCAL, MYCM #### [address] [address] NRBC Automated 0.3 per 100 WBC High 0.0 [facility] Comment on above: Performed By: #### L ACDS, TROPI, PRCAL, MYCM #### [facility] [address] [place] [address]658 Platelet mean volume Entitic volume (Bld) 10.5 fL Normal 8.1-13.5 [facility] Comment on above: Performed By: #### L ACDS, TROPI, PRCAL, MYCM #### [address] [address] Platelets #/vol (Bld) 168 10*3/uL Normal 138-453 [facility] Comment on above: Performed By: #### L ACDS, TROPI, PRCAL, MYCM #### [address] [address] RBC #/vol (Bld) 3.71 10*6/uL Low 3.95-5.11 [facility] Comment on above: Performed By: #### L ACDS, TROPI, PRCAL, MYCM #### [address] [address] WBC #/vol (Bld) 6.0 10*3/uL Normal 3.5-11.3 [facility] Comment on above: Performed By: #### L ACDS, TROPI, PRCAL, MYCM #### [address] [place] [address] Auto Diff Performed NOT REPORTED Normal [facility] Comment on above: Performed By: #### L ACDS, TROPI, PRCAL, MYCM #### [address] [address] Platelets #/vol (Bld) NOT REPORTED Normal [facility] Comment on above: Performed By: #### L ACDS, TROPI, PRCAL, MYCM #### [facility] [address] [place] [address] RBC morphology finding Nom (Bld) NOT REPORTED Normal [facility] Comment on above: Performed By: #### L ACDS, TROPI, PRCAL, MYCM #### [address] [address] WBC Morphology NOT REPORTED Normal [facility] Comment on above: Performed By: #### L ACDS, TROPI, PRCAL, MYCM #### [address] [address] Comp Metabolic Pr/rfx MGon 1 10-19-2017 (cont.) Normal [facility] Comment on above: Result Comment: Aver age GFR for 30-39 years old: 107 mL/min/1.73sq m Chronic Kidney Disease: <60 mL/min/1.73sq m Kidney failure: <15 mL/min/1.73sq m eGFR calculated using average adult body mass. Additional eGFR calculator available at: http://www.[employer].com/multiple_crcl_2012.htm Performed By: #### L ACDS, TROPI, PRCAL, MYCM #### [facility] [address] [place] [address] Albumin mass conc 2.7 g/dL Low 3.5-5.2 [facility] Comment on above: Performed By: #### L ACDS, TROPI, PRCAL, MYCM #### [facility] [address] [place] [address] Albumin/Globulin mass ratio 0.8 {ratio} Low 1.0-2.5 [facility] Comment on above: Performed By: #### L ACDS, TROPI, PRCAL, MYCM #### [address] [address] Alkaline Phos 78 U/L Normal 35-104 [facility] Comment on above: Performed By: #### L ACDS, TROPI, PRCAL, MYCM #### [facility] [address] [place] [address] ALT enzyme act/vol 16 U/L Normal 5-33 [facility] Comment on above: Performed By: #### L ACDS, TROPI, PRCAL, MYCM #### [facility] [address] [place] [address] Anion gap molar conc 10 mmol/L Normal 9-17 [facility] Comment on above: Performed By: #### L ACDS, TROPI, PRCAL, MYCM #### [facility] [address] [place] [address]353 AST enzyme act/vol 16 U/L Normal <32 [facility] Comment on above: Performed By: #### L ACDS, TROPI, PRCAL, MYCM #### [facility] [address] [place] [address] Bilirubin Ql (U) 0.21 mg/dL Low 0.3-1.2 [facility] Comment on above: Performed By: #### L ACDS, TROPI, PRCAL, MYCM #### [facility] [address] [place] [address] Calcium mass conc 8.5 mg/dL Low 8.6-10.4 [facility] Comment on above: Performed By: #### L ACDS, TROPI, PRCAL, MYCM #### [address] [address] Chloride molar conc 103 mmol/L Normal 98-107 [facility] Comment on above: Performed By: #### L ACDS, TROPI, PRCAL, MYCM #### [address] [address] CO2 molar conc 24 mmol/L Normal 20-31 [facility] Comment on above: Performed By: #### L ACDS, TROPI, PRCAL, MYCM #### [address] [address] Creatinine mass conc 0.88 mg/dL Normal 0.50-0.90 [facility] Comment on above: Performed By: #### L ACDS, TROPI, PRCAL, MYCM #### [address] [address] GFR, Amer >60 Normal >60 [facility] Comment on above: Performed By: #### L ACDS, TROPI, PRCAL, MYCM #### [address] [address] GFR,non Amer >60 Normal >60 [facility] Comment on above: Performed By: #### L ACDS, TROPI, PRCAL, MYCM #### [address] [address] Glucose mass conc 104 mg/dL High 70-99 [facility] Comment on above: Performed By: #### L ACDS, TROPI, PRCAL, MYCM #### [address] [address] Potassium molar conc 4.0 mmol/L Normal 3.7-5.3 [facility] Comment on above: Performed By: #### L ACDS, TROPI, PRCAL, MYCM #### [facility] [place] [address] Protein mass conc 6.3 g/dL Low 6.4-8.3 [facility] Comment on above: Performed By: #### L ACDS, TROPI, PRCAL, MYCM #### [facility] [address] [place] [address] Sodium molar conc 137 mmol/L Normal 135-144 [facility] Comment on above: Performed By: #### L ACDS, TROPI, PRCAL, MYCM #### [facility] [address] [place] [address] Urea nitrogen mass conc 16 mg/dL Normal 6-20 [facility] Comment on above: Performed By: #### L ACDS, TROPI, PRCAL, MYCM #### [facility] [address] [place] [address] BUN/CRE Ratio NOT REPORTED Normal -20 [facility] Comment on above: Performed By: #### L ACDS, TROPI, PRCAL, MYCM #### [facility] [address] [place] [address] Staging: NOT REPORTED Normal [facility] Comment on above: Performed By: #### L ACDS, TROPI, PRCAL, MYCM #### [facility] [address] [place] [address] Cult, Bloodon 08-19-2018 Cult, Blood Specimen Description [...] Trimethoprim/Sulfa <=10 SUSCEPTIBLE Vancomycin 1 SUSCEPTIBLE Normal [facility] Comment on above: Performed By: #### L ACDS, TROPI, PRCAL, MYCM #### [facility] [address] [place] [address] MRI CERVICAL SPINE W WO CONT RASTon [...] Bo Rodrigues MD 08/19/18 Final result Normal [facility] MRI LUMBAR SPINE W WO CONTRA [...] Bo Rodrigues MD 08/19/18 Final result Normal [facility] MRI THORACIC SPINE W WO CONT [...] Bo Rodrigues MD 08/19/18 Final result Normal [facility] Magnesiumon 08-19-2018 Magnesium mass conc 2.3 mg/dL Normal 1.6-2.6 [facility] Comment on above: Performed By: #### L ACDS, TROPI, PRCAL, MYCM #### [facility] [address] [place] [address] Procalcitoninon 08-19-2018 Protein mass conc 0.57 ng/mL High <0.09 [facility] Comment on above: Result Comment: Suspected Sepsis: [...] entered into the Change in Procalcitonin Calculator ([email or web address]-gkq-dboxuaymqn.[email or web address]) to determine the patient's Mortality Risk Prognosis Performed By: #### L ACDS, TROPI, PRCAL, MYCM #### [address] [place] [address] CBC with Diffon 08-18-2018 Abs. Basophil <0.03 Normal 0.00-0.20 [facility] Comment on above: Performed By: #### L ACDS, TROPI, PRCAL, MYCM #### [facility] [address] [place] [address] Abs.Imm.Granulocyte 0.28 k/uL Normal 0.00-0.30 [facility] Comment on above: Performed By: #### L ACDS, TROPI, PRCAL, MYCM #### [address] [address] Abs.Neutrophil (Seg) 3.23 k/uL Normal 1.50-8.10 [facility] Comment on above: Performed By: #### L ACDS, TROPI, PRCAL, MYCM #### [address] [address] Basophils/100 WBC (Bld) 0 % Normal 0-2 [facility] Comment on above: Performed By: #### L ACDS, TROPI, PRCAL, MYCM #### [address] [address] Eosinophils #/vol (Bld) 0.15 10*3/uL Normal 0.00-0.44 [facility] Comment on above: Performed By: #### L ACDS, TROPI, PRCAL, MYCM #### [address] [address] Eosinophils/100 WBC (Bld) 3 % Normal 1-4 [facility] Comment on above: Performed By: #### L ACDS, TROPI, PRCAL, MYCM #### [facility] [address] [place] [address] Erythrocyte distribution width Ratio (RBC) 14.7 % High 11.8-14.4 [facility] Comment on above: Performed By: #### L ACDS, TROPI, PRCAL, MYCM #### [facility] [address] [place] [address] Hematocrit Volume Fraction (Bld) 32.7 % Low 36.3-47.1 [facility] Comment on above: Performed By: #### L ACDS, TROPI, PRCAL, MYCM #### [address] [address] Hemoglobin mass conc (Bld) 10.1 g/dL Low 11.9-15.1 [facility] Comment on above: Performed By: #### L ACDS, TROPI, PRCAL, MYCM #### [address] [address] Immature granulocytes #/vol (Bld) 5 % High 0 [facility] Comment on above: Performed By: #### L ACDS, TROPI, PRCAL, MYCM #### [address] [address] Lymphocytes #/vol (Bld) 1.58 10*3/uL Normal 1.10-3.70 [facility] Comment on above: Performed By: #### L ACDS, TROPI, PRCAL, MYCM #### [address] [address] Lymphocytes/100 WBC (Bld) 28 % Normal 24-43 [facility] Comment on above: Performed By: #### L ACDS, TROPI, PRCAL, MYCM #### [address] [address] MCH Entitic mass (RBC) 28.2 pg Normal 25.2-33.5 [facility] Comment on above: Performed By: #### L ACDS, TROPI, PRCAL, MYCM #### [address] [address] MCHC mass conc (RBC) 30.9 g/dL Normal 28.4-34.8 [facility] Comment on above: Performed By: #### L ACDS, TROPI, PRCAL, MYCM #### [address] [address] MCV Entitic volume (RBC) 91.3 fL Normal 82.6-102.9 [facility] Comment on above: Performed By: #### L ACDS, TROPI, PRCAL, MYCM #### [address] [address] Monocytes #/vol (Bld) 0.47 10*3/uL Normal 0.10-1.20 [facility] Comment on above: Performed By: #### L ACDS, TROPI, PRCAL, MYCM #### [address] [address] Monocytes/100 WBC (Bld) 8 % Normal 3-12 [facility] Comment on above: Performed By: #### L ACDS, TROPI, PRCAL, MYCM #### [address] [address] Neutrophil (Seg) 56 % Normal 36-65 [facility] Comment on above: Performed By: #### L ACDS, TROPI, PRCAL, MYCM #### [address] [address] NRBC Automated 0.0 per 100 WBC Normal 0.0 [facility] Comment on above: Performed By: #### L ACDS, TROPI, PRCAL, MYCM #### [address] [address] Platelet mean volume Entitic volume (Bld) 11.4 fL Normal 8.1-13.5 [facility] Comment on above: Performed By: #### L ACDS, TROPI, PRCAL, MYCM #### [address] [address] Platelets #/vol (Bld) 153 10*3/uL Normal 138-453 [facility] Comment on above: Performed By: #### L ACDS, TROPI, PRCAL, MYCM #### [facility] [address] [place] [address] RBC #/vol (Bld) 3.58 10*6/uL Low 3.95-5.11 [facility] Comment on above: Performed By: #### L ACDS, TROPI, PRCAL, MYCM #### [facility] [address] [place] [address] RBC morphology finding Nom (Bld) ANISOCYTOSIS PRESENT Normal [facility] Comment on above: Performed By: #### L ACDS, TROPI, PRCAL, MYCM #### [facility] [address] [place] [address] WBC #/vol (Bld) 5.7 10*3/uL Normal 3.5-11.3 [facility] Comment on above: Performed By: #### L ACDS, TROPI, PRCAL, MYCM #### [facility] [address] [place] [address] Auto Diff Performed NOT REPORTED Normal [facility] Comment on above: Performed By: #### L ACDS, TROPI, PRCAL, MYCM #### [facility] [address] [place] [address] Platelets #/vol (Bld) NOT REPORTED Normal [facility] Comment on above: Performed By: #### L ACDS, TROPI, PRCAL, MYCM #### [facility] [address] [place] [address] WBC Morphology NOT REPORTED Normal [facility] Comment on above: Performed By: #### L ACDS, TROPI, PRCAL, MYCM #### [facility] [address] [place] [address] Comp Metabolic Pr/rfx MGon 1 10-18-2017 (cont.) Normal [facility] Comment on above: Result Comment: Aver age GFR for 30-39 years old: 107 mL/min/1.73sq m Chronic Kidney Disease: <60 mL/min/1.73sq m Kidney failure: <15 mL/min/1.73sq m eGFR calculated using average adult body mass. Additional eGFR calculator available at: http://www.[employer]/multiple_crcl_2012.htm Performed By: #### L ACDS, TROPI, PRCAL, MYCM #### [facility] [address] [place] [address] Albumin mass conc 2.7 g/dL Low 3.5-5.2 [facility] Comment on above: Performed By: #### L ACDS, TROPI, PRCAL, MYCM #### [facility] [address] [place] [address] Albumin/Globulin mass ratio 0.8 {ratio} Low 1.0-2.5 [facility] Comment on above: Performed By: #### L ACDS, TROPI, PRCAL, MYCM #### [facility] [address] [place] [address] Alkaline Phos 82 U/L Normal 35-104 [facility] Comment on above: Performed By: #### L ACDS, TROPI, PRCAL, MYCM #### [facility] [address] [place] [address] ALT enzyme act/vol 19 U/L Normal 5-33 [facility] Comment on above: Performed By: #### L ACDS, TROPI, PRCAL, MYCM #### [facility] [address] [place] [address] Anion gap molar conc 8 mmol/L Low 9-17 [facility] Comment on above: Performed By: #### L ACDS, TROPI, PRCAL, MYCM #### [facility] [address] [place] [address]43 AST enzyme act/vol 17 U/L Normal <32 [facility] Comment on above: Performed By: #### L ACDS, TROPI, PRCAL, MYCM #### [facility] [address] [place] [address] Bilirubin Ql (U) 0.24 mg/dL Low 0.3-1.2 [facility] Comment on above: Performed By: #### L ACDS, TROPI, PRCAL, MYCM #### [facility] [address] [place] [address]68 Calcium mass conc 8.2 mg/dL Low 8.6-10.4 [facility] Comment on above: Performed By: #### L ACDS, TROPI, PRCAL, MYCM #### [facility] [address] [place] [address] Chloride molar conc 103 mmol/L Normal 98-107 [facility] Comment on above: Performed By: #### L ACDS, TROPI, PRCAL, MYCM #### [facility] [address] [place] [address] CO2 molar conc 25 mmol/L Normal 20-31 [facility] Comment on above: Performed By: #### L ACDS, TROPI, PRCAL, MYCM #### [facility] [address] [place] [address] Creatinine mass conc 0.94 mg/dL High 0.50-0.90 [facility] Comment on above: Performed By: #### L ACDS, TROPI, PRCAL, MYCM #### [facility] [address] [place] [address] GFR, Amer >60 Normal >60 [facility] Comment on above: Performed By: #### L ACDS, TROPI, PRCAL, MYCM #### [facility] [address] [place] [address] GFR,non Amer >60 Normal >60 [facility] Comment on above: Performed By: #### L ACDS, TROPI, PRCAL, MYCM #### [facility] [address] [place] [address] Glucose mass conc 107 mg/dL High 70-99 [facility] Comment on above: Performed By: #### L ACDS, TROPI, PRCAL, MYCM #### [facility] [address] [place] [address] Potassium molar conc 4.1 mmol/L Normal 3.7-5.3 [facility] Comment on above: Performed By: #### L ACDS, TROPI, PRCAL, MYCM #### [facility] [address] [place] [address] Protein mass conc 6.2 g/dL Low 6.4-8.3 [facility] Comment on above: Performed By: #### L ACDS, TROPI, PRCAL, MYCM #### [facility] [address] [place] [address]446 Sodium molar conc 136 mmol/L Normal 135-144 [facility] Comment on above: Performed By: #### L ACDS, TROPI, PRCAL, MYCM #### [facility] [address] [place] [address]121 Urea nitrogen mass conc 14 mg/dL Normal 6-20 [facility] Comment on above: Performed By: #### L ACDS, TROPI, PRCAL, MYCM #### [facility] [address] [place] [address] BUN/CRE Ratio NOT REPORTED Normal 9-20 [facility] Comment on above: Performed By: #### L ACDS, TROPI, PRCAL, MYCM #### [facility] [address] [place] [address]64 Staging: NOT REPORTED Normal [facility] Comment on above: Performed By: #### L ACDS, TROPI, PRCAL, MYCM #### [facility] [address] [place] [address] Magnesiumon 08-18-2018 Magnesium mass conc 2.3 mg/dL Normal 1.6-2.6 [facility] Comment on above: Performed By: #### L ACDS, TROPI, PRCAL, MYCM #### [facility] [address] [place] [address] Vancomycin Troughon 08-18-20 18 Vancomycin Trough 14.7 ug/mL Normal 10.0-20.0 [facility] Comment on above: Result Comment: High er trough serum vancomycin concentrations of 15-20 ug/mL are recommended for complicated infections such as bacteremia, endocarditis, osteomyelitis, meningitis, and hospital acquired pneumonia. Performed By: #### L ACDS, TROPI, PRCAL, MYCM #### [facility] [address] [place] [address]79 Date last dose, NOT REPORTED Normal [facility] Comment on above: Performed By: #### L ACDS, TROPI, PRCAL, MYCM #### [facility] [address] [place] [address]876 Dose amount, NOT REPORTED Normal [facility] Comment on above: Performed By: #### L ACDS, TROPI, PRCAL, MYCM #### [facility] [address] [place] [address]854 Time last dose, NOT REPORTED Normal [facility] Comment on above: Performed By: #### L ACDS, TROPI, PRCAL, MYCM #### [facility] [address] [place] [address] C-Reactive Proteinon 018 CRP mass conc 188.1 mg/L High 0.0-5.0 [facility] Comment on above: Performed By: #### L ACDS, TROPI, PRCAL, MYCM #### [place] [address] CBC with Diffon 08-17-2018 Abs. Basophil 0.00 k/uL Normal 0.0-0.2 [facility] Comment on above: Performed By: #### L ACDS, TROPI, PRCAL, MYCM #### [address] [address] Abs.Imm.Granulocyte 0.13 k/uL Normal 0.00-0.30 [facility] Comment on above: Performed By: #### L ACDS, TROPI, PRCAL, MYCM #### [address] [address] Abs.Neutrophil (Seg) 4.35 k/uL Normal 1.8-7.7 [facility] Comment on above: Performed By: #### L ACDS, TROPI, PRCAL, MYCM #### [address] [address] Basophils/100 WBC (Bld) 0 % Normal 0-2 [facility] Comment on above: Performed By: #### L ACDS, TROPI, PRCAL, MYCM #### [address] [address] Eosinophils #/vol (Bld) 0.06 10*3/uL Normal 0.0-0.4 [facility] Comment on above: Performed By: #### L ACDS, TROPI, PRCAL, MYCM #### [address] [address] Eosinophils/100 WBC (Bld) 1 % Normal 1-4 [facility] Comment on above: Performed By: #### L ACDS, TROPI, PRCAL, MYCM #### [address] [address] Immature granulocytes #/vol (Bld) 2 % High 0 [facility] Comment on above: Performed By: #### L ACDS, TROPI, PRCAL, MYCM #### [address] [address] Lymphocytes #/vol (Bld) 1.32 10*3/uL Normal 1.0-4.8 [facility] Comment on above: Performed By: #### L ACDS, TROPI, PRCAL, MYCM #### [address] [address] Lymphocytes/100 WBC (Bld) 21 % Low 24-44 [facility] Comment on above: Performed By: #### L ACDS, TROPI, PRCAL, MYCM #### [address] [address] Monocytes #/vol (Bld) 0.44 10*3/uL Normal 0.1-0.8 [facility] Comment on above: Performed By: #### L ACDS, TROPI, PRCAL, MYCM #### [address] [address] Monocytes/100 WBC (Bld) 7 % Normal 1-7 [facility] Comment on above: Performed By: #### L ACDS, TROPI, PRCAL, MYCM #### [facility] [address] [place] [address] Morphology Interp Rehan (Bld) ANISOCYTOSIS PRESENT Normal [facility] Comment on above: Result Comment: INCR EASED BANDS PRESENT 1+ TEARDROPS Performed By: #### L ACDS, TROPI, PRCAL, MYCM #### [address] [address] Neutrophil (Seg) 69 % High 36-66 [facility] Comment on above: Performed By: #### L ACDS, TROPI, PRCAL, MYCM #### [address] [address] Erythrocyte distribution width Ratio (RBC) 14.8 % High 11.8-14.4 [facility] Comment on above: Performed By: #### L ACDS, TROPI, PRCAL, MYCM #### [facility] [address] [place] [address] Hematocrit Volume Fraction (Bld) 33.3 % Low 36.3-47.1 [facility] Comment on above: Performed By: #### L ACDS, TROPI, PRCAL, MYCM #### [facility] [address] [place] [address] Hemoglobin mass conc (Bld) 10.2 g/dL Low 11.9-15.1 [facility] Comment on above: Performed By: #### L ACDS, TROPI, PRCAL, MYCM #### [address] [address] MCH Entitic mass (RBC) 28.3 pg Normal 25.2-33.5 [facility] Comment on above: Performed By: #### L ACDS, TROPI, PRCAL, MYCM #### [address] [address] MCHC mass conc (RBC) 30.6 g/dL Normal 28.4-34.8 [facility] Comment on above: Performed By: #### L ACDS, TROPI, PRCAL, MYCM #### [facility] [facility] [address] [place] [address] 31824 MCV Entitic volume (RBC) 92.2 fL Normal 82.6-102.9 [facility] Comment on above: Performed By: #### L ACDS, TROPI, PRCAL, MYCM #### [address] [address] NRBC Automated 0.0 per 100 WBC Normal 0.0 [facility] Comment on above: Performed By: #### L ACDS, TROPI, PRCAL, MYCM #### [address] [address] Platelet mean volume Entitic volume (Bld) 11.5 fL Normal 8.1-13.5 [facility] Comment on above: Performed By: #### L ACDS, TROPI, PRCAL, MYCM #### [address] [address] Platelets #/vol (Bld) 149 10*3/uL Normal 138-453 [facility] Comment on above: Performed By: #### L ACDS, TROPI, PRCAL, MYCM #### [address] [address] RBC #/vol (Bld) 3.61 10*6/uL Low 3.95-5.11 [facility] Comment on above: Performed By: #### L ACDS, TROPI, PRCAL, MYCM #### [address] [address] WBC #/vol (Bld) 6.3 10*3/uL Normal 3.5-11.3 [facility] Comment on above: Performed By: #### L ACDS, TROPI, PRCAL, MYCM #### [address] [address] Auto Diff Performed NOT REPORTED Normal [facility] Comment on above: Performed By: #### L ACDS, TROPI, PRCAL, MYCM #### [address] [address] Platelets #/vol (Bld) NOT REPORTED Normal [facility] Comment on above: Performed By: #### L ACDS, TROPI, PRCAL, MYCM #### [place] [address] [place] [address] 29088 RBC morphology finding Nom (Bld) NOT REPORTED Normal [facility] Comment on above: Performed By: #### L ACDS, TROPI, PRCAL, MYCM #### [facility] [address] [place] [address] 38845 WBC Morphology NOT REPORTED Normal [facility] Comment on above: Performed By: #### L ACDS, TROPI, PRCAL, MYCM #### [facility] [address] [place] [address] 39273 Comp Metabolic Pr/rfx MGon 1 10-17-2017 (cont.) Normal [facility] Comment on above: Result Comment: Aver age GFR for 30-39 years old: 107 mL/min/1.73sq m Chronic Kidney Disease: <60 mL/min/1.73sq m Kidney failure: <15 mL/min/1.73sq m eGFR calculated using average adult body mass. Additional eGFR calculator available at: http://www.[employer]/multiple_crcl_2012.htm Performed By: #### L ACDS, TROPI, PRCAL, MYCM #### [facility] [address] [place] [address] 85818 Albumin mass conc 2.4 g/dL Low 3.5-5.2 [facility] Comment on above: Performed By: #### L ACDS, TROPI, PRCAL, MYCM #### [facility] [address] [place] [address] 71439 Albumin/Globulin mass ratio 0.7 {ratio} Low 1.0-2.5 [facility] Comment on above: Performed By: #### L ACDS, TROPI, PRCAL, MYCM #### [facility] [address] [place] [address] 50462 Alkaline Phos 76 U/L Normal 35-104 [facility] Comment on above: Performed By: #### L ACDS, TROPI, PRCAL, MYCM #### [facility] [address] [place] [address] 67088 ALT enzyme act/vol 25 U/L Normal 5-33 [facility] Comment on above: Performed By: #### L ACDS, TROPI, PRCAL, MYCM #### [facility] [address] [place] [address] 63137 Anion gap molar conc 8 mmol/L Low 9-17 [facility] Comment on above: Performed By: #### L ACDS, TROPI, PRCAL, MYCM #### [facility] [address] [place] [address] 54598 AST enzyme act/vol 26 U/L Normal <32 [facility] Comment on above: Performed By: #### L ACDS, TROPI, PRCAL, MYCM #### [facility] [address] [place] [address] 67838 Bilirubin Ql (U) 0.34 mg/dL Normal 0.3-1.2 [facility] Comment on above: Performed By: #### L ACDS, TROPI, PRCAL, MYCM #### [facility] [address] [place] [address] 57066 Calcium mass conc 7.8 mg/dL Low 8.6-10.4 [facility] Comment on above: Performed By: #### L ACDS, TROPI, PRCAL, MYCM #### [facility] [address] [place] [address] 33598 Chloride molar conc 99 mmol/L Normal 98-107 [facility] Comment on above: Performed By: #### L ACDS, TROPI, PRCAL, MYCM #### [facility] [address] [place] [address] 18060 CO2 molar conc 23 mmol/L Normal 20-31 [facility] Comment on above: Performed By: #### L ACDS, TROPI, PRCAL, MYCM #### [address] [address] Creatinine mass conc 1.04 mg/dL High 0.50-0.90 [facility] Comment on above: Performed By: #### L ACDS, TROPI, PRCAL, MYCM #### [facility] [address] [place] [address] 92876 GFR, Amer >60 Normal >60 [facility] Comment on above: Performed By: #### L ACDS, TROPI, PRCAL, MYCM #### [facility] [address] [place] [address] 13983 GFR,non Amer 59 mL/min Low >60 [facility] Comment on above: Performed By: #### L ACDS, TROPI, PRCAL, MYCM #### [facility] [address] [place] [address] 65138 Glucose mass conc 109 mg/dL High 70-99 [facility] Comment on above: Performed By: #### L ACDS, TROPI, PRCAL, MYCM #### [address] [address] Potassium molar conc 3.8 mmol/L Normal 3.7-5.3 [facility] Comment on above: Performed By: #### L ACDS, TROPI, PRCAL, MYCM #### [facility] [address] [place] [address] 43877 Protein mass conc 5.8 g/dL Low 6.4-8.3 [facility] Comment on above: Performed By: #### L ACDS, TROPI, PRCAL, MYCM #### [facility] [address] [place] [address] 12516 Sodium molar conc 130 mmol/L Low 135-144 [facility] Comment on above: Performed By: #### L ACDS, TROPI, PRCAL, MYCM #### [facility] [address] [place] [address] 88163 Urea nitrogen mass conc 15 mg/dL Normal 6-20 [facility] Comment on above: Performed By: #### L ACDS, TROPI, PRCAL, MYCM #### [facility] [address] [place] [address] 04943 BUN/CRE Ratio NOT REPORTED Normal -20 [facility] Comment on above: Performed By: #### L ACDS, TROPI, PRCAL, MYCM #### [facility] [address] [place] [address] 01090 Staging: NOT REPORTED Normal [facility] Comment on above: Performed By: #### L ACDS, TROPI, PRCAL, MYCM #### [facility] [address] [place] [address]205 Magnesiumon 08-17-2018 Magnesium mass conc 2.2 mg/dL Normal 1.6-2.6 [facility] Comment on above: Performed By: #### L ACDS, TROPI, PRCAL, MYCM #### [place] [address] [place] [address] 23760 Procalcitoninon 08-17-2018 Protein mass conc 1.48 ng/mL High <0.09 [facility] Comment on above: Result Comment: Suspected Sepsis: [...] entered into the Change in Procalcitonin Calculator (www.nehnpc-lnp-krqvpxqoue.Yogiyo) to determine the patient's Mortality Risk Prognosis Performed By: #### L ACDS, TROPI, PRCAL, MYCM #### [facility] [address] [place] [address] 78545 Sedimentation Rateon 018 Sedimentation Rate 97 mm High 0-20 [facility] Comment on above: Performed By: #### L ACDS, TROPI, PRCAL, MYCM #### [facility] [address] [place] [address] 30285 CBC with Diffon 08-16-2018 Abs. Basophil 0.00 k/uL Normal 0.00-0.20 [facility] Comment on above: Performed By: #### L ACDS, TROPI, PRCAL, MYCM #### [facility] [address] [place] [address] 36959 Abs.Imm.Granulocyte 0.11 k/uL Normal 0.00-0.30 [facility] Comment on above: Performed By: #### L ACDS, TROPI, PRCAL, MYCM #### [address] [address] Abs.Neutrophil (Seg) 4.60 k/uL Normal 1.50-8.10 [facility] Comment on above: Performed By: #### L ACDS, TROPI, PRCAL, MYCM #### [facility] [address] [place] [address] 84589 Basophils/100 WBC (Bld) 0 % Normal 0-2 [facility] Comment on above: Performed By: #### L ACDS, TROPI, PRCAL, MYCM #### [facility] [address] [place] [address] 47215 Eosinophils #/vol (Bld) 0.00 10*3/uL Normal 0.00-0.44 [facility] Comment on above: Performed By: #### L ACDS, TROPI, PRCAL, MYCM #### [address] [address] Eosinophils/100 WBC (Bld) 0 % Low 1-4 [facility] Comment on above: Performed By: #### L ACDS, TROPI, PRCAL, MYCM #### [address] [address] Immature granulocytes #/vol (Bld) 2 % High 0 [facility] Comment on above: Performed By: #### L ACDS, TROPI, PRCAL, MYCM #### [address] [address] Lymphocytes #/vol (Bld) 0.67 10*3/uL Low 1.10-3.70 [facility] Comment on above: Performed By: #### L ACDS, TROPI, PRCAL, MYCM #### [address] [address] Lymphocytes/100 WBC (Bld) 12 % Low 24-43 [facility] Comment on above: Performed By: #### L ACDS, TROPI, PRCAL, MYCM #### [address] [address] Monocytes #/vol (Bld) 0.22 10*3/uL Normal 0.10-1.20 [facility] Comment on above: Performed By: #### L ACDS, TROPI, PRCAL, MYCM #### [address] [address] Monocytes/100 WBC (Bld) 4 % Normal 3-12 [facility] Comment on above: Performed By: #### L ACDS, TROPI, PRCAL, MYCM #### [place] [address] [place] [address]403 Morphology Interp Rehan (Bld) ANISOCYTOSIS PRESENT Normal [facility] Comment on above: Result Comment: INCR EASED BANDS PRESENT 1+ TEARDROPS Performed By: #### L ACDS, TROPI, PRCAL, MYCM #### [place] [address] [place] [address] 33850 Neutrophil (Seg) 82 % High 36-65 [facility] Comment on above: Performed By: #### L ACDS, TROPI, PRCAL, MYCM #### [facility] [address] [place] [address] 98842 Erythrocyte distribution width Ratio (RBC) 15.1 % High 11.8-14.4 [facility] Comment on above: Performed By: #### L ACDS, TROPI, PRCAL, MYCM #### [facility] [address] [place] [address] 23362 Hematocrit Volume Fraction (Bld) 34.1 % Low 36.3-47.1 [facility] Comment on above: Performed By: #### L ACDS, TROPI, PRCAL, MYCM #### [place] [address] [place] [address] 03172 Hemoglobin mass conc (Bld) 10.0 g/dL Low 11.9-15.1 [facility] Comment on above: Performed By: #### L ACDS, TROPI, PRCAL, MYCM #### [facility] [address] [place] [address] 36947 MCH Entitic mass (RBC) 28.7 pg Normal 25.2-33.5 [facility] Comment on above: Performed By: #### L ACDS, TROPI, PRCAL, MYCM #### [facility] [address] [place] [address] 06262 MCHC mass conc (RBC) 29.3 g/dL Normal 28.4-34.8 [facility] Comment on above: Performed By: #### L ACDS, TROPI, PRCAL, MYCM #### [facility] [address] [place] [address] 95247 MCV Entitic volume (RBC) 98.0 fL Normal 82.6-102.9 [facility] Comment on above: Performed By: #### L ACDS, TROPI, PRCAL, MYCM #### [address] [address] NRBC Automated 0.0 per 100 WBC Normal 0.0 [facility] Comment on above: Performed By: #### L ACDS, TROPI, PRCAL, MYCM #### [address] [address] Platelet mean volume Entitic volume (Bld) 11.1 fL Normal 8.1-13.5 [facility] Comment on above: Performed By: #### L ACDS, TROPI, PRCAL, MYCM #### [address] [address]349 Platelets #/vol (Bld) 119 10*3/uL Low 138-453 [facility] Comment on above: Performed By: #### L ACDS, TROPI, PRCAL, MYCM #### [address] [address] RBC #/vol (Bld) 3.48 10*6/uL Low 3.95-5.11 [facility] Comment on above: Performed By: #### L ACDS, TROPI, PRCAL, MYCM #### [address] [address] WBC #/vol (Bld) 5.6 10*3/uL Normal 3.5-11.3 [facility] Comment on above: Performed By: #### L ACDS, TROPI, PRCAL, MYCM #### [address] [address] Auto Diff Performed NOT REPORTED Normal [facility] Comment on above: Performed By: #### L ACDS, TROPI, PRCAL, MYCM #### [address] [address] Platelets #/vol (Bld) NOT REPORTED Normal [facility] Comment on above: Performed By: #### L ACDS, TROPI, PRCAL, MYCM #### [address] [address]83 RBC morphology finding Nom (Bld) NOT REPORTED Normal [facility] Comment on above: Performed By: #### L ACDS, TROPI, PRCAL, MYCM #### [facility] [address] [place] [address] 79307 WBC Morphology NOT REPORTED Normal [facility] Comment on above: Performed By: #### L ACDS, TROPI, PRCAL, MYCM #### [address] [address] [address] HEAD WO CONTRASTon 2017 CT HEAD [...] Erica Angeles MD 08/16/18 Final result Normal [facility] Calcium, Ionicon 08-16-2018 Calcium mass conc 0.99 mmol/L Low 1.13-1.33 [facility] Comment on above: Performed By: #### L ACDS, TROPI, PRCAL, MYCM #### [facility] [address] [place] [address] 54593 Comp Metabolic Pr/rfx MGon 1 10-16-2017 (cont.) Normal [facility] Comment on above: Result Comment: Aver age GFR for 30-39 years old: 107 mL/min/1.73sq m Chronic Kidney Disease: <60 mL/min/1.73sq m Kidney failure: <15 mL/min/1.73sq m eGFR calculated using average adult body mass. Additional eGFR calculator available at: http://www.[employer]ogiyo/multiple_crcl_2012.htm Performed By: #### P T, CMPX, MG, CDP #### [facility] [address] [place] [address] 59378 Albumin mass conc 2.3 g/dL Low 3.5-5.2 [facility] Comment on above: Performed By: #### P T, CMPX, MG, CDP #### [place] [address] [place] [address] 17921 Albumin/Globulin mass ratio 0.7 {ratio} Low 1.0-2.5 [facility] Comment on above: Performed By: #### P T, CMPX, MG, CDP #### [place] [address] [place] [address] 86363 Alkaline Phos 67 U/L Normal 35-104 [facility] Comment on above: Performed By: #### P T, CMPX, MG, CDP #### [facility] [address] [place] [address] 17536 ALT enzyme act/vol 33 U/L Normal 5-33 [facility] Comment on above: Performed By: #### P T, CMPX, MG, CDP #### [facility] [address] [place] [address] 34667 Anion gap molar conc 11 mmol/L Normal 9-17 [facility] Comment on above: Performed By: #### P T, CMPX, MG, CDP #### [facility] [address] [place] [address] 34305 AST enzyme act/vol 41 U/L High <32 [facility] Comment on above: Performed By: #### P T, CMPX, MG, CDP #### [facility] [address] [place] [address] 37584 Bilirubin Ql (U) 0.40 mg/dL Normal 0.3-1.2 [facility] Comment on above: Performed By: #### P T, CMPX, MG, CDP #### [facility] [address] [place] [address] 37616 Calcium mass conc 7.3 mg/dL Low 8.6-10.4 [facility] Comment on above: Performed By: #### P T, CMPX, MG, CDP #### [facility] [address] [place] [address] 91801 Chloride molar conc 105 mmol/L Normal 98-107 [facility] Comment on above: Performed By: #### P T, CMPX, MG, CDP #### [facility] [address] [place] [address] 86663 CO2 molar conc 18 mmol/L Low 20-31 [facility] Comment on above: Performed By: #### P T, CMPX, MG, CDP #### [place] [address] [place] [address] 21597 Creatinine mass conc 1.09 mg/dL High 0.50-0.90 [facility] Comment on above: Performed By: #### P T, CMPX, MG, CDP #### [place] [address] [place] [address] 59814 GFR, Amer >60 Normal >60 [facility] Comment on above: Performed By: #### P T, CMPX, MG, CDP #### [place] [address] [place] [address] 47240 GFR,non Amer 56 mL/min Low >60 [facility] Comment on above: Performed By: #### P T, CMPX, MG, CDP #### [facility] [address] [place] [address] 57467 Glucose mass conc 128 mg/dL High 70-99 [facility] Comment on above: Performed By: #### P T, CMPX, MG, CDP #### [place] [address] [place] [address] 30798 Potassium molar conc 3.6 mmol/L Low 3.7-5.3 [facility] Comment on above: Performed By: #### P T, CMPX, MG, CDP #### [place] [address] [place] [address] 25148 Protein mass conc 5.5 g/dL Low 6.4-8.3 [facility] Comment on above: Performed By: #### P T, CMPX, MG, CDP #### [place] [address] [place] [address] 67092 Sodium molar conc 134 mmol/L Low 135-144 [facility] Comment on above: Performed By: #### P T, CMPX, MG, CDP #### [place] [address] [place] [address] 52600 Urea nitrogen mass conc 17 mg/dL Normal - [facility] Comment on above: Performed By: #### P T, CMPX, MG, CDP #### [facility] [address] [place] [address] 59816 BUN/CRE Ratio NOT REPORTED Normal 06-24 [facility] Comment on above: Performed By: #### P T, CMPX, MG, CDP #### [facility] [address] [place] [address] 09945 Staging: NOT REPORTED Normal [facility] Comment on above: Performed By: #### P T, CMPX, MG, CDP #### [facility] [address] [place] [address] 65921 Lactic Acid,Whole Blon 08-16 Lactic Acid,Whole Bl 1.2 mmol/L Normal 0.7-2.1 [facility] Comment on above: Performed By: #### L ACDS, TROPI, PRCAL, MYCM #### [facility] [address] [place] [address] 90574 Lactic Acid,Whole Bl 1.2 mmol/L Normal 0.7-2.1 [facility] Comment on above: Performed By: #### L ACWB #### [facility] [address] [place] [address] 33199 Magnesiumon 08-16-2018 Magnesium mass conc 2.0 mg/dL Normal 1.6-2.6 [facility] Comment on above: Performed By: #### L ACDS, TROPI, PRCAL, MYCM #### [place] [address] [place] [address] 70072 Mycoplasma Ab,IgMon 08-16-20 18 Mycoplasma Ab,IgM 0.22 Normal <0.91 [facility] Comment on above: Result Comment: Reference Range: <=0.90 Negative 0.91-1.09 Equivocal >=1.10 Positive Performed By: #### L ACDS, TROPI, PRCAL, MYCM #### [address] [phone] PTon 08-16-2018 INR Coag RelTime (PPP) 1.0 {INR} Normal [facility] Comment on above: Result Comment: Therapeutic Range: Moderate Anticoagulant Intensity: INR = 2.0-3.0 High Anticoagulant Intensity: INR = 2.5-3.5 Performed By: #### P T, CMPX, MG, CDP #### [facility] [address] [place] [address] 88557 Prothrombin time (PT) Coag time (PPP) 11.0 s Normal 9.0-12.0 [facility] Comment on above: Performed By: #### P T, CMPX, MG, CDP #### [address] [phone] Troponinon 08-16-2018 Troponin I.cardiac mass conc Normal [facility] Comment on above: Result Comment: Refe [...] diagnosis. Performed By: #### T ROPI #### [address] [phone] Troponin I.cardiac mass conc ng/mL Normal <0.03 [facility] Comment on above: Result Comment: Trop onin T results cannot be compared to Troponin-I results. Performed By: #### T ROPI #### [address] [phone] XR CHEST (2 VW)on 08-16-2018 XR CHEST [...] Noe Mitchell MD 08/16/18 Final result Normal [facility] Lactate, Sepsison 08-15-2018 Lactic Acid,Sep Wbld 3.5 mmol/L High 0.5-1.9 [facility] Comment on above: Performed By: #### L ACDS, TROPI, PRCAL, MYCM #### [facility] [address] [place] [address] 1865208 Lactic Acid, Sepsis NOT REPORTED Normal 0.5-1.9 [facility] Comment on above: Performed By: #### L ACDS, TROPI, PRCAL, MYCM #### [place] [address] [place] [address] [phone] Legionella Ag, Uron 08-15-20 18 Legionella Ag, [...] this test. Report Status FINAL 08/15/2018 Normal [facility] Comment on above: Performed By: #### U LAG #### [address] [phone] Procalcitoninon 08-15-2018 Protein mass conc 3.39 ng/mL High <0.09 [facility] Comment on above: Result Comment: Suspected Sepsis: [...] entered into the Change in Procalcitonin Calculator (www.eiakvl-fmp-bpztpcnstd.[email or web address]) to determine the patient's Mortality Risk Prognosis Performed By: #### L ACDS, TROPI, PRCAL, MYCM #### [facility] [address] [place] [address] [phone] Strep pneum Ag,CSF/Uron 08-05 Strep pneum Ag,CSF/Ur Specimen Descripti on .CLEAN CATCH URINE Special Requests NOT REPORTED Direct Exam NEGATIVE: Strep pneumoniae antigen not detected Report Status FINAL 08/15/2018 Normal [facility] Comment on above: Performed By: #### S PAG #### [facility] [address] [place] [address] [phone] Troponinon 08-15-2018 Troponin I.cardiac mass conc ng/mL Normal <0.03 [facility] Comment on above: Result Comment: Trop onin T results cannot be compared to Troponin-I results. Performed By: #### L ACDS, TROPI, PRCAL, MYCM #### [facility] [address] [place] [address] [phone] Troponin I.cardiac mass conc Normal [facility] Comment on above: Result Comment: Refe [...] #### L ACDS, TROPI, PRCAL, MYCM #### [facility] [place] [address] Urinalysison 11-18-2017 Bilirubin, Urine Negative Invalid Interpretation Code NEG;NEGATIVE [facility] Blood, Urine Moderate Abnormal NEG;NEGATIVE [facility] Interpretation and review of laboratory results Abnormal Invalid Interpretation Code [facility] Nitrite, Urine Negative Invalid Interpretation Code NEG;NEGATIVE [facility] Protein, Urine Negative Invalid Interpretation Code NEG;NEGATIVE mg/dL [facility] RBCs, Urine 1 /HPF Invalid Interpretation Code 0 - 5 [facility] Squamous Epithelial < 1 Invalid Interpretation Code 0 - 40 /HPF [facility] Urine, bacteria in sediment Rare Invalid Interpretation Code NS;RARE /HPF [facility] Urine, character Hazy Invalid Interpretation Code [facility] Urine, color Yellow Invalid Interpretation Code [facility] Urine, glucose presence Negative Invalid Interpretation Code NEG;NEGATIVE mg/dL [facility] Urine, ketones presence Negative Invalid Interpretation Code NEG;NEGATIVE mg/dL [facility] Urine, leukocyte esterase presence Small Abnormal Negative [facility] Urine, pH 6.0 [pH] Invalid Interpretation Code 4.5 - 8.0 [facility] Urine, specific gravity 1.014 1 Invalid Interpretation Code 1.003 - 1.029 [facility] Urobilinogen, Urine < 2.0 Invalid Interpretation Code <2 mg/dL [facility] WBCs, Urine 6 /HPF High 0 - 5 [facility] CBC and Differentialon 11-17 Basophils 0.7 % Invalid Interpretation Code [facility] Basophils 0.1 K/mcL Invalid Interpretation Code 0 - 0.2 [facility] Eosinophils 0.2 K/mcL Invalid Interpretation Code 0 - 0.5 [facility] Erythrocytes (RBC) 3.97 M/mcL Invalid Interpretation Code 3.7 - 5.0 [facility] Hematocrit (HCT) 35.7 % Invalid Interpretation Code 34.4 - 44.8 % [facility] Hemoglobin (HGB) 12.2 g/dL Invalid Interpretation Code 11.6 - 15.4 g/dL [facility] Interpretation and review of laboratory results Abnormal Invalid Interpretation Code [facility] Lymphocytes 2.1 K/mcL Invalid Interpretation Code 1.0 - 3.7 [facility] MCH 30.6 pg Invalid Interpretation Code 27.9 - 33.9 pg [facility] MCHC 34.0 g/dL Invalid Interpretation Code 33.1 - 35.1 g/dL [facility] MCV 89.8 fL Invalid Interpretation Code 82.6 - 98.9 [facility] Monocytes 0.6 K/mcL Invalid Interpretation Code 0.1 - 0.6 [facility] Neutrophils 6.6 K/mcL Invalid Interpretation Code 1.2 - 6.9 [facility] Platelet mean volume (PMV) 8.6 fL Invalid Interpretation Code 7.0 - 10.6 [facility] Platelets 196 K/mcL Invalid Interpretation Code 162 - 402 [facility] RDW-CA 15.0 % High 10 - 14.4 % [facility] Segmented Neut 69.6 % Invalid Interpretation Code [facility] T8 suppressor/100 cells 1.8 10*3/uL Invalid Interpretation Code [facility] T8 suppressor/100 cells 21.8 10*3/uL Invalid Interpretation Code [facility] T8 suppressor/100 cells 6.1 10*3/uL Invalid Interpretation Code [facility] WBC (Leukocytes) 9.5 K/mcL Invalid Interpretation Code 3.4 - 10.6 [facility] Comprehensive Metabolic Pane lyn 11-17-2017 Alanine aminotransferase (ALT) 18 U/L Invalid Interpretation Code 14 - 65 U/L [facility] Albumin 3.1 g/dL Low 3.2 - 5.2 g/dL [facility] Alkaline phosphatase (ALP) 78 U/L Invalid Interpretation Code 40 - 140 U/L [facility] Aspartate aminotransferase (AST) 7 U/L Invalid Interpretation Code 0 - 45 U/L [facility] Calcium 8.6 mg/dL Invalid Interpretation Code 8.4 - 10.2 mg/dL [facility] Chloride 106 mmol/L Invalid Interpretation Code 98 - 108 mmol/L [facility] CO2 27 mmol/L Invalid Interpretation Code 21 - 32 mmol/L [facility] Creatinine 1.13 mg/dL High 0.4 - 1.1 mg/dL [facility] eGFR (black) mL/min/{1.73_m2} Invalid Interpretation Code ml/min/1.73sq .m [facility] eGFR (non-black) 54 mL/min/{1.73_m2} Low >60 [facility] Glucose 113 mg/dL High 70 - 99 mg/dL [facility] Interpretation and review of laboratory results Abnormal Invalid Interpretation Code [facility] Potassium 3.7 mmol/L Invalid Interpretation Code 3.5 - 5.1 mmol/L [facility] Protein 6.8 g/dL Invalid Interpretation Code 6 - 8 g/dL [facility] Sodium 140 mmol/L Invalid Interpretation Code 135 - 145 mmol/L [facility] Urea nitrogen 17 mg/dL Invalid Interpretation Code 8 - 25 mg/dL [facility] Urine, bilirubin presence 0.4 mg/dL Invalid Interpretation Code 0.3 - 1.2 mg/dL [facility] Lipaseon 11-17-2017 Lipase 167 U/L Invalid Interpretation Code 73 - 393 U/L [facility] Vital Signs Date Time Vital Sign Value Performing Clinician Faci lity 03-03-2023 14:44-0400 Body temperature 98.49 [degF] Hassmann DPM Work Phone: [facility] 03-03-2023 14:44-0400 Diastolic blood pressure 87 mm[Hg] 2C2P Hassmann DPM Work Phone: [facility] 03-03-2023 14:44-0400 Heart rate 94 /min Hassmann DPM Work Phone: [facility] 03-03-2023 14:44-0400 Systolic blood pressure 139 mm[Hg] Hassmann DPM Work Phone: [facility] 07-02-2022 09:36-0400 Body height 157.5 cm [employer] [employer] Work Phone: [facility] 07-02-2022 09:36-0400 Body mass index (BMI) [Ratio] 38.67 kg/m2 [employer] Work Phone: [facility] 07-02-2022 09:36-0400 Body weight 95.89 kg [employer] Work Phone: [facility] 09-16-2020 20:53-0500 BMI (Body Mass Index) 39.32 kg/m2 [facility] [place] 09-16-2020 20:53-0500 Body Temperature 99.5 [degF] [place], [place] 09-16-2020 20:53-0500 Body weight 97.52 kg [place] 09-16-2020 20:53-0500 BP Diastolic 109 mm[Hg] [facility] 09-16-2020 20:53-0500 BP Systolic 189 mm[Hg] [facility] 09-16-2020 20:53-0500 Height 157.5 cm [place], [place] 09-16-2020 20:53-0500 Pulse (Heart Rate) 99 /min [place], [place] 09-16-2020 20:53-0500 Pulse Oximetry 96 % [facility] 09-16-2020 20:53-0500 Respiratory Rate 18 /min [place] Encounters Encounter Date Encounter Type Care Provider Facility Start: 03-02-2024 End: 03-02-2024 ambulatory [facility] Start: 02-15-2024 End: 02-15-2024 ambulatory Frances Harris Facility:[facility] Start: 02-15-2024 End: 02-15-2024 ambulatory DPM Frances Harris Work Phone: [facility] Work Phone: Start: 02-15-2024 End: 02-15-2024 Departed Referred DPM Frances Harris Work Phone: [facility] Start: 02-10-2024 End: 02-10-2024 ambulatory [facility] Start: 01-29-2024 End: 01-29-2024 ambulatory [facility] Start: 10-29-2023 End: 10-29-2023 ambulatory TIFFANIE CASAS Not Available Start: 08-23-2023 End: 08-25-2023 ambulatory [facility] Start: 08-20-2023 End: 08-20-2023 ambulatory TIFFANIE CASAS Not Available Start: 06-15-2023 End: 06-15-2023 Subsequent hospital visit by physician Felipe Adam MD Work Phone: [facility] Comment on above: Mixed hyperlipidemia Start: 06-15-2023 End: 06-17-2023 ambulatory [facility] Start: 05-17-2023 End: 05-17-2023 [facility] Start: 04-03-2023 ambulatory FELIPE BACK [facility] Start: 03-03-2023 End: 03-07-2023 ambulatory ROBBIN SHOOK [facility] Ambulatory Start: 03-03-2023 End: 03-03-2023 Office outpatient new 45 minutes MASSIMO Shook DPM Work Phone: [facility] Comment on above: Charcot arthropathy of midfoot (Primary Dx); Gastrocnemius equinus, unspecified laterality; Foot pain, left Start: 02-11-2023 End: 02-12-2023 ambulatory FRANCES Weston [facility] Facility:H1 Start: 02-05-2023 End: 02-05-2023 Subsequent hospital visit by physician Felipe Adam MD Work Phone: [facility] Comment on above: Pelvic pressure in f emale Start: 02-04-2023 End: 02-05-2023 ambulatory FRANCES Weston [facility] Facility:H1 Start: 01-28-2023 End: 01-29-2023 ambulatory [facility] Trista [facility] Facility:H1 Start: 01-06-2023 End: 01-06-2023 Emergency department patient visit [facility] Start: 07-09-2022 End: 07-09-2022 Subsequent hospital visit by physician JOE Cameron RD Work Phone: [facility] Comment on above: Arrived Start: 07-02-2022 End: 07-02-2022 Subsequent hospital visit by physician Kendall [facility] Work Phone: [facility] Diabetic Education Start: 06-25-2022 End: 06-27-2022 Subsequent hospital visit by physician Tennille Additional Xray At [facility] Radiology Comment on above: Foreign body (FB) in soft tissue Start: 06-25-2022 End: 06-27-2022 Subsequent hospital visit by [facility] MRI Comment on above: Pain of foot, unspec ified laterality; Closed nondisplaced fracture of second metatarsal bone of left foot, initial encounter; Closed nondisplaced fracture of lateral cuneiform of left foot, initial encounter Start: 05-27-2022 End: 2022 Subsequent hospital visit by physician [facility] Ultrasound Room [facility] Ultrasound Comment on above: Neck mass Start: 04-28-2022 End: 04-29-2022 ambulatory [facility] Start: 04-28-2022 End: 04-28-2022 Subsequent hospital visit by physician Felipe Adam MD Work Phone: [facility] Comment on above: Acute cystitis with hematuria Start: 04-12-2022 End: 04-12-2022 Subsequent hospital visit by physician Felipe Adam MD Work Phone: [facility] Laboratory Comment on above: Fatigue, unspecified type; Encounter for screening for HIV; Mixed hyperlipidemia; Hyperglycemia; Chronic renal impairment, stage 3b (HCC) Start: 02-05-2022 End: 02-05-2022 Subsequent hospital visit by physician Christel Donohue PT [facility] Physical Therapy Start: 02-04-2022 End: 02-04-2022 Patient encounter procedure [facility] [address] Start: 02-03-2022 End: 02-03-2022 Subsequent hospital visit by physician Hilaria Trujillo [facility] Physical Therapy Start: 01-29-2022 End: 01-29-2022 Subsequent hospital visit by physician Beverly Rangel PTA [facility] Physical Therapy Comment on above: Arrived Start: 01-27-2022 End: 01-27-2022 Subsequent hospital visit by physician Christel Donohue PT [facility] Comment on above: Arrived Start: 01-24-2022 End: 01-24-2022 Subsequent hospital visit by physician Vanessa Garcia PT [facility] Comment on above: Arrived Start: 01-22-2022 End: 01-22-2022 Subsequent hospital visit by physician Beverly Rangel VISUALIZATION DEVELOPER [facility] Start: 01-17-2022 End: 01-17-2022 Subsequent hospital visit by physician Beverly Rangel VISUALIZATION DEVELOPER [facility] Therapy Comment on above: Arrived Start: 01-13-2022 End: 01-13-2022 Subsequent hospital visit by physician Christel Donohue PT [facility] Start: 01-03-2022 End: 01-03-2022 Subsequent hospital visit by physician Beverly Rangel VISUALIZATION DEVELOPER [facility] Comment on above: Arrived [...] Start: 11-29-2021 End: 11-29-2021 ambulatory FELIPE ADAM [facility] Start: 08-01-2021 End: 08-01-2021 Subsequent hospital visit by physician Felipe Adam MD Work Phone: [facility] Comment on above: Frequent UTI; Urinary urgency; Urinary frequency Start: 07-11-2021 End: 07-11-2021 Subsequent hospital visit by physician Felipe Adam MD Work Phone: [facility] Comment on above: Frequent UTI; Urinary urgency; Urinary frequency Start: 06-11-2021 End: 06-11-2021 Subsequent hospital visit by physician Felipe Adam MD Work Phone: [facility] Comment on above: Acute cystitis with [...] End: 02-13-2021 Subsequent hospital visit by [facility] Scre[facility] Comment on above: Suspected COVID-19 v irus infection Start: 01-21-2021 End: 01-21-2021 Subsequent hospital visit by physician [facility] Cov[facility] Pat Screening Schedule [facility] Comment on above: Viral illness Start: 11-15-2020 End: 11-15-2020 Subsequent hospital visit by physician [facility] Screening Schedule [facility] Comment on above: Arrived Start: 09-16-2020 End: 09-16-2020 Emergency department patient visit Robbin Rooney Work Phone: [facility] ED Comment on above: Acute thoracic back [...] 05-25-2020 Subsequent hospital visit by physician Felipe Back [facility] Comment on above: Vitamin D deficiency ; Mixed hyperlipidemia; Hyperglycemia Start: 12-14-2019 End: 12-14-2019 Subsequent hospital visit by physician Felipe Back [facility] Comment on above: MRSA (methicillin re sistant Staphylococcus aureus) septicemia (HCC) Start: 09-24-2019 End: 09-24-2019 Subsequent hospital visit by physician Felipe Adam MD Work Phone: [facility] Start: 09-12-2019 End: 09-12-2019 Subsequent hospital visit by physician Felipe Adam MD Work Phone: [facility] Start: 08-29-2019 End: 08-29-2019 Subsequent hospital visit by physician [facility] Schedule [facility] SLEEP LAB Comment on above: Arrived Start: 07-28-2019 End: 07-30-2019 Subsequent hospital visit by physician Tennille Additional Xray At [facility] Radiology Comment on above: MRSA (methicillin re sistant Staphylococcus aureus) septicemia (HCC) Start: 06-17-2019 End: 06-17-2019 Subsequent hospital visit by physician Felipe Adam [facility] Laboratory Comment on above: MRSA (methicillin re sistant Staphylococcus aureus) infection Start: 02-03-2019 End: 02-04-2019 Patient encounter procedure TIFFANIE [facility] Start: 02-03-2019 End: 02-03-2019 Subsequent hospital visit by physician Tiffanie Casas Work Phone: [facility] MRI Comment on above: Brachial neuritis; Peripheral nerve disorder; Spasm of muscle Start: 11-10-2018 End: 11-10-2018 Patient encounter procedure Andrey Early Facility:[place] Start: 10-18-2018 End: 10-18-2018 Patient encounter procedure Andrey Early Work Phone: [facility] Start: 10-03-2018 Patient encounter procedure Dav Pembertoni Facility:[place] Start: 10-03-2018 End: 10-03-2018 Patient encounter procedure Felipe Jair [facility] Start: 09-20-2018 End: 09-21-2018 Patient encounter procedure Gosia Hartman [facility] Start: 09-20-2018 Patient encounter procedure Facility:[id number] Start: 09-13-2018 Patient encounter procedure GOSIA HARTMAN [facility] Start: 09-06-2018 End: 09-06-2018 Patient encounter procedure [facility] Start: 08-31-2018 End: 08-31-2018 Patient encounter procedure Historical Provider [facility] Start: 08-27-2018 End: 08-28-2018 Patient encounter procedure Dav Hartman Facility:[facility] Start: 08-27-2018 Patient encounter procedure Facility:[id number] Start: 08-15-2018 End: 08-25-2018 Evaluation and management of inpatient JV Sullivan [facility] Start: 04-02-2018 End: 04-02-2018 Patient encounter procedure Melchor Calderon Facility:[place] Start: 03-23-2018 Patient encounter procedure Shanice Juares Facility:[place] Start: 02-04-2018 End: 02-04-2018 Ambulatory [facility] Start: 11-24-2017 Patient encounter procedure [facility] Start: 11-17-2017 End: 11-17-2017 Ambulatory Ceferino Jory Work Phone: [facility] Start: 10-20-2017 End: 10-20-2017 Ambulatory [facility] Start: 10-20-2017 Patient encounter procedure [facility] Start: 10-09-2017 Ambulatory [facility] Start: 10-09-2017 End: 10-09-2017 Patient encounter procedure [facility] Start: 09-16-2017 Patient encounter procedure [facility] Start: 08-03-2017 Ambulatory [facility] Start: 03-31-2017 End: 03-31-2017 Ambulatory SHANICE GOLDSTEIN MOR [facility] Procedures Date Procedure Procedure Detail Performing [...] ion [Identifier] in Cervix by Cyto stain [employer] Work Phone: Start: 08-01-2021 Urnls dip stick/tabl et reagent auto microscopy Lita Weeks MD Work Phone: Start: 07-11-2021 Urnls dip stick/tabl et reagent auto microscopy Lita Weeks MD Work Phone: Start: 05-20-2021 Electrolyte panel Gregory Forbes MD Work Phone: Start: 05-20-2021 Urnls dip stick/tabl et rgnt auto w/o microscopy Gregory Forbes MD Work Phone: Start: 01-21-2021 COVID-19 Pattie benderms FEED PREPARATION OPERATOR - POWER DIGGER OPERATOR Work Phone: Start: 11-15-2020 COVID-19 Dav flores [...] 07-24-2020 Blood count complete auto&auto difrntl wbc Gosia Hartman Work Phone: Start: 07-24-2020 C-reactive protein Gosia Hartman Work Phone: Start: 07-24-2020 Sedimentation rate [...] Phone: Start: 05-25-2020 Hemoglobin glycosyla jamia a1c Felpie Back Work Phone: Start: 05-25-2020 Lipid panel Felipe Back Work Phone: Start: 05-25-2020 Lipoprotein direct measurement ldl cholesterol Felipe Back Work Phone: Start: 05-25-2020 PATIENT FASTING? Felipe Back Work Phone: Start: 12-14-2019 C-reactive protein Azalea Longthorne Work Phone: Start: 09-24-2019 Hemoglobin glycosyla jamia a1c Janel Allen FEED PREPARATION OPERATOR - POWER DIGGER OPERATOR Work Phone: Start: 09-24-2019 VITAMIN B12 & FOLATE Kevin delgado Mónica Edendyanharinder FEED PREPARATION OPERATOR - POWER DIGGER OPERATOR Work Phone: Start: 07-28-2019 Radex spine cervical 4 or 5 views Azalea Knight Work Phone: Start: 07-28-2019 Blood count complete auto&auto difrntl wbc Azalea Knight FEED PREPARATION OPERATOR - POWER DIGGER OPERATOR Work Phone: Start: 07-28-2019 C-reactive protein Azalea Knight FEED PREPARATION OPERATOR - POWER DIGGER OPERATOR Work Phone: Start: 06-17-2019 Albumin serum plasma /whole blood Heather Forbes Work Phone: Start: 06-17-2019 Assay of magnesium Soumyaap na Andrei Work Phone: Start: 06-17-2019 Assay of phosphorus inorganic Heather Forbes Work Phone: Start: 06-17-2019 Assay of urea nitrog en quantitative Heatherwoody Forbes Work Phone: Start: 06-17-2019 Blood count hemoglobin Heather Andrei Work Phone: Start: 06-17-2019 Calcium total Heather Ka madalicja Work Phone: Start: 06-17-2019 Electrolyte panel Ashelyn a Andrei Work Phone: Start: 06-17-2019 Protein total xcpt refractometry urine Heather Andrei Work Phone: Start: 06-17-2019 Urinalysis microscop ic only Heather Andrei Work Phone: Start: 06-17-2019 Urnls dip stick/tabl et rgnt auto w/o microscopy Heather Benjaminadawoody Work Phone: Start: 06-17-2019 C-reactive protein Gosia Hartman Work Phone: Start: 06-17-2019 Sedimentation rate r bc automated Gosia Hartman Work Phone: Start: 02-03-2019 MRI of cervical spin e without contrast External Transcribed Start: 10-03-2018 End: 10-03-2018 Microscopic examination of blood, culture Dav Hartman Comment on above: Performed By: #### B C #### Unless otherwise noted, all testing performed by [facility] Piter Ceballos [place] [id number] CLIA: [id number] Youth [address] Judge: Harshad Solano M.D. Start: 09-06-2018 End: 09-06-2018 LABS (OUTSIDE) Historical Provider Start: 08-31-2018 End: 08-31-2018 LABS (OUTSIDE) Historical Provider Start: 08-25-2018 IP CONSULT TO HOME C ARE NEEDS [facility] Start: 08-25-2018 Assay of magnesium SHOAIB AP[facility] Start: 08-25-2018 Basic metabolic pane l calcium total [facility]AR[facility] Start: 08-25-2018 Blood count complete auto&auto difrntl wbc [facility] Start: 08-25-2018 Procalcitonin (pct) WAS MARISABEL APPLE Start: 08-25-2018 DISCHARGE PATIENT WASSAMIR Mónica ZECHARIAH Start: 08-25-2018 PULSE OXIMETRY, CONTINUOUS [facility] Start: 08-25-2018 INSERT PICC LINE [facility] Start: 08-25-2018 MISCELLANEOUS NURSIN G CARE ORDER (SPECIFY) [facility] Start: 08-25-2018 DME ORDER FOR WALKER OP [facility] Start: 08-25-2018 PULSE OXIMETRY, CONTINUOUS [facility] Start: 08-25-2018 NOTIFY PHYSICIAN (SPECIFY) [facility] Start: 08-25-2018 NURSING COMMUNICATION W MITCHEL [facility] Start: 08-25-2018 NASAL CANNULA OXYGEN BRITTA [facility] Start: 08-25-2018 INCENTIVE SPIROMETRY RT [facility] Start: 08-25-2018 INITIATE OXYGEN THER APY PROTOCOL [facility] Start: 08-25-2018 PULSE OXIMETRY, CONTINUOUS [facility] Start: 08-25-2018 Assay of magnesium WASE EDIN [facility] Start: 08-25-2018 Basic metabolic pane l calcium total [facility] Start: 08-25-2018 Blood count complete auto&auto difrntl wbc [facility] Start: 08-25-2018 PULSE OXIMETRY, CONTINUOUS JV [facility] Start: 08-25-2018 PULSE OXIMETRY, CONTINUOUS [facility]V [facility] Start: 08-24-2018 PULSE OXIMETRY, CONTINUOUS [facility]V [facility] Start: 08-24-2018 DIET GENERAL JV Carreon Start: 08-24-2018 OT EVAL AND TREAT JUJU [...] JV [facility] Start: 08-24-2018 FUNGAL STAIN JV LEON Velma Start: 08-24-2018 TISSUE CULTURE JV LANG Start: 08-24-2018 FUNGUS CULTURE JV LANG Start: 08-24-2018 PULSE OXIMETRY, CONTINUOUS [facility]V [facility] Start: 08-24-2018 Procalcitonin (pct) WAS MARISABEL APPLE Start: 08-24-2018 PULSE OXIMETRY, CONTINUOUS [facility]V [facility] Start: 08-24-2018 DRAIN CARE JV Carreon Start: 08-24-2018 MISCELLANEOUS NURSIN G CARE [...] 08-23-2018 PULSE OXIMETRY, CONTINUOUS [facility]V [facility] Start: 08-22-2018 PULSE OXIMETRY, CONTINUOUS [facility] Start: 08-22-2018 PULSE OXIMETRY, CONTINUOUS [facility]V [facility] Start: 08-22-2018 PULSE OXIMETRY, CONTINUOUS JV [facility] Start: 08-22-2018 INCENTIVE SPIROMETRY RT JV [facility] Start: 08-22-2018 INITIATE OXYGEN THER APY PROTOCOL JV [facility] Start: 08-22-2018 PULSE OXIMETRY, CONTINUOUS [facility] Start: 08-22-2018 Assay of magnesium SHOAIB [...] PULSE OXIMETRY, CONTINUOUS [facility] Start: 08-20-2018 MISCELLANEOUS NURSIN G CARE ORDER (SPECIFY) [facility] Start: 08-20-2018 Radex foot complete minimum 3 views JV [facility] Start: 08-20-2018 PULSE OXIMETRY, CONTINUOUS JV [facility] Start: 08-20-2018 C-reactive protein SHOAIB APPLE Start: 08-20-2018 SEDIMENTATION RATE SHOAIB APPLE Start: 08-20-2018 PULSE OXIMETRY, CONTINUOUS JV [facility] Start: 08-20-2018 INCENTIVE SPIROMETRY RT VJ AP[facility] Start: 08-20-2018 INITIATE OXYGEN THER APY [...] JV [facility] Start: 08-19-2018 PULSE OXIMETRY, CONTINUOUS [facility]ARIS[facility]EL [facility] Start: 08-18-2018 PULSE OXIMETRY, CONTINUOUS [facility]V [facility] Start: 08-18-2018 PULSE OXIMETRY, CONTINUOUS JV [facility] Start: 08-18-2018 PULSE OXIMETRY, CONTINUOUS JV [facility] Start: 08-18-2018 TELEMETRY MONITORING BRITTA AP[facility] Start: 08-18-2018 INCENTIVE SPIROMETRY RT JV [...] wbc JV AP[facility] Start: 08-17-2018 C-reactive protein SOHAIB AP[facility] Start: 08-17-2018 SEDIMENTATION RATE SHOAIB AP[facility] [...] 08-16-2018 IP CONSULT TO IV TEAM W MITCHELEDIN APPLE Start: 08-16-2018 Assay of magnesium SHOAIB AP[facility] Start: 08-16-2018 Blood count complete auto&auto difrntl wbc JV [facility] Start: 08-16-2018 Prothrombin time JV [facility] Start: 08-16-2018 PULSE OXIMETRY, CONTINUOUS JV [facility] Start: 08-16-2018 DAILY WEIGHTS JVMARISABEL CANTRELL Start: 08-16-2018 PULSE OXIMETRY, CONTINUOUS JV [facility] Start: 08-16-2018 EKG 12-LEAD JV CASASA N Start: 08-16-2018 Assay of lactate JV [...] Cul bact xcpt urine blood/stool aerobic isol VJ APPLE Start: 08-15-2018 ENCOURAGE DEEP BREAT KIERRA [...] Treatment Date Care Activity Detail Author Start: 08-25-2029 Shingles Vaccine (1 of 2) Shingles Vaccine (1 of 2) [place], [place] Start: 04-12-2027 Lipid panel Lipids [facility] Start: 05-14-2026 Lipid panel [facility] Start: 05-25-2025 Lipid panel Lipid screen [place] Start: 09-24-2024 Screening for malignant neoplasm of cervix [facility] Start: 09-08-2024 DTaP/Tdap/Td vaccine (2 - Td or Tdap) DTaP/Tdap/Td vaccine (2 - Td or Tdap) [facility] Start: 09-08-2024 DTaP/Tdap/Td vaccine (2 - Td) DTaP/Tdap/Td vaccine (2 - Td) [place] Start: 09-08-2024 Tetanus vaccination [facility] Start: 05-17-2024 GFR test (Diabetes, CKD 3-4, OR last GFR 15-59) GFR test (Diabetes, CKD 3-4, OR last GFR 15-59) [facility] Start: 05-14-2024 Diabetes screen Diabetes screen [facility] Start: 05-11-2024 Lipid panel Lipid screen [place] Start: 05-11-2024 Lipid screen Lipid screen [place] Start: 03-23-2024 Depression Monitoring Depression Monitoring [facility] Start: 02-06-2024 GFR test (Diabetes, CKD 3-4, OR last GFR 15-59) GFR test (Diabetes, CKD 3-4, OR last GFR 15-59) [facility] Start: 02-06-2024 Hemoglobin A1c measurement A1C test (Diabetic or Prediabetic) [facility] Start: 08-13-2023 End: 08-13-2023 [facility] Start: 06-22-2023 End: 06-22-2023 Patient encounter procedure 06/22/2023 11:15 AM EDT Office Visit [facility] [address] [place] [address] Felipe Adam MD [address] [place] [address] [facility] Start: 06-05-2023 Influenza vaccination Sequential Influenza Vaccine (Season Ended) [facility] Start: 05-05-2023 Influenza vaccination [facility] Start: 04-14-2023 End: 04-14-2023 Patient encounter procedure 04/14/2023 Office Visit Family Medicine Felipe Adam MD [address] [place] [address] [facility] Start: 04-12-2023 Hemoglobin A1c measurement A1C test (Diabetic or Prediabetic) [facility] Start: 04-11-2023 Depression Monitoring Depression Monitoring [facility] Start: 04-11-2023 History and physical examination, annual for health maintenance Wellness Visit [facility] Start: 12-25-2022 End: 12-25-2022 Patient encounter procedure 12/25/2022 Office Visit Infectious Diseases Dav Hartman MD [address] [address] [facility]. Start: 09-24-2022 Diabetes screen Diabetes screen [place], [place] Start: 08-07-2022 End: 08-07-2022 Patient encounter procedure 08/07/2022 Office Visit Urology Luis Mclean, PACharitoC [facility] [address] [address] [facility] Start: 07-15-2022 End: 07-15-2022 Nursing evaluation of patient and report 07/15/2022 Nurse Only Family Medicine [facility] Start: 07-09-2022 End: 07-09-2022 Patient encounter procedure 07/09/2022 Appointment IP Unit Samantha Lino, RD, LD [facility] Start: 06-05-2022 Influenza vaccination [facility] Start: 05-20-2022 Creatinine measurement [facility] Start: 05-20-2022 Potassium [Moles/volume] in Serum or Plasma Potassium [facility] Start: 05-20-2022 Potassium monitoring Potassium monitoring [facility] Start: 05-14-2022 Creatinine measurement Creatinine monitoring [facility] Work Phone: Start: 05-14-2022 Potassium monitoring Potassium monitoring [facility] Work Phone: Start: 05-05-2022 Influenza vaccination Flu vaccine (#1) [facility] [employer] Start: 02-05-2022 End: 02-05-2022 Patient encounter procedure 02/05/2022 Appointment Physical Therapy Christel Donohue, PT [facility] Start: 02-03-2022 End: 02-03-2022 Patient encounter procedure [facility] Start: 01-30-2022 End: 01-30-2022 Patient encounter procedure [facility] Start: 01-29-2022 End: 01-29-2022 Patient encounter procedure 01/29/2022 Appointment Physical Therapy Beverly Rangel VISUALIZATION DEVELOPER [facility] Start: 01-27-2022 End: 01-27-2022 Patient encounter procedure 01/27/2022 Appointment Physical Therapy Christel Donohue, PT [facility] Start: 01-24-2022 End: 01-24-2022 Patient encounter procedure 01/24/2022 Appointment Physical Therapy Vanessa Garcia PT [facility] Start: 01-22-2022 End: 01-22-2022 Patient encounter procedure 01/22/2022 Appointment Physical Therapy Beverly Rangel VISUALIZATION DEVELOPER [facility] Start: 01-17-2022 End: 01-17-2022 Patient encounter procedure 01/17/2022 Appointment Physical Therapy Beverly Rangel VISUALIZATION DEVELOPER [facility] Start: 01-10-2022 End: 01-10-2022 Patient encounter procedure 01/10/2022 Appointment Physical Therapy Christel Donohue, PT [facility] Start: 01-08-2022 End: 01-08-2022 Patient encounter procedure 01/08/2022 Appointment Physical Therapy Beverly Rangel VISUALIZATION DEVELOPER [facility] Start: 01-02-2022 End: 01-02-2022 Patient encounter procedure 01/02/2022 Appointment Occupational Therapy Judi Marie OTA [address] [place] [address] [facility] Start: 12-31-2021 Diabetes screen Diabetes screen [facility] Start: 12-31-2021 End: 12-31-2021 Patient encounter procedure [facility] Start: 12-30-2021 End: 12-30-2021 Patient encounter procedure 12/30/2021 Appointment Occupational Therapy Cheryl Herman OT [facility] Start: 12-27-2021 End: 12-27-2021 Patient encounter procedure 12/27/2021 Appointment Occupational Therapy Eve Gaspar OTA [facility] Start: 11-14-2021 End: 11-14-2021 Patient encounter procedure 11/14/2021 Office Visit Family [place] [address] [phone] [facility] Start: 10-29-2021 Depression Monitoring Depression Monitoring [facility] Start: 09-16-2021 Creatinine measurement Creatinine monitoring [facility] Phone: Start: 09-16-2021 Potassium monitoring Potassium monitoring [facility] Phone: Start: 08-01-2021 End: 08-01-2021 Patient encounter procedure 08/01/2021 Office Visit Urology Lita Weeks MD [address] [facility], [address] [place] [address] [facility] Start: 06-05-2021 Influenza vaccination [facility] Start: 05-25-2021 Creatinine measurement Creatinine monitoring [place] Start: 05-25-2021 HbA1c (Bld) [Mass fraction] A1C test (Diabetic or Prediabetic) [facility] [employer] [facility] Start: 05-25-2021 Hemoglobin A1c measurement A1C test (Diabetic or Prediabetic) [facility] Phone: Start: 05-25-2021 Potassium monitoring Potassium monitoring [facility] [place] Start: 11-13-2020 End: 11-13-2020 Office Visit 11/13/2020 Office Visit Family Medicine BackFelipe MD [address] [place] [address] [phone] [facility] Start: 11-02-2020 Potassium monitoring Potassium monitoring [place], [place] Start: 10-23-2020 End: 10-23-2020 Office Visit 10/23/2020 Office Visit Infectious Diseases Dav Hartman MD [address] [place], [place] [id number] [facility] Start: 09-24-2020 HbA1c (Bld) [Mass fraction] A1C test (Diabetic or Prediabetic) [place], [place] Start: 06-17-2020 Creatinine measurement Creatinine monitoring [place], [place] Start: 06-17-2020 Creatinine monitoring Creatinine monitoring [place], [place] Start: 06-17-2020 Potassium monitoring Potassium monitoring [place], [place] Start: 06-12-2020 End: 06-12-2020 Office Visit 06/12/2020 Office Visit Infectious Diseases Dav Hartman MD [address] [place], [place] [id number] [facility] Start: 06-05-2020 Influenza vaccination Flu vaccine (#1) [place] Start: 03-20-2020 Cervical cancer screen Cervical cancer screen [place], [place] Start: 03-20-2020 Screening for malignant neoplasm of cervix [facility] Start: 11-01-2019 End: 11-01-2019 Office Visit 11/01/2019 Office Visit Infectious Dav Be[place]re MD [address] [place], [place] [id number] [facility] Start: 07-28-2019 End: 07-28-2019 Office Visit 07/28/2019 Office Visit Infectious Dav [place] MD [address] [place] [address] [phone] [facility] Start: 06-27-2019 End: 06-27-2019 Nurse Only 06/27/2019 Nurse Only Family Medicine [facility] Start: 06-05-2019 Influenza vaccination Flu vaccine (#1) [place], [place] Start: 06-05-2019 Influenza vaccination given SEQUENTIAL INFLUENZA VACCINE (Season Ended) [facility] Start: 2019 Screening for malignant neoplasm of breast Mammogram [facility] Start: 06-05-2018 Influenza vaccination INFLUENZA VACCINE (#1) [facility] Work Phone: Start: 03-23-2018 End: 03-23-2018 Ambulatory [facility] Start: 2009 Screening for malignant neoplasm of cervix HPV (without or with Pap) [facility] Start: 2000 Screening for malignant neoplasm of cervix PAP SMEAR DISCUSSION [facility] Work Phone: Start: 1998 Third diphtheria, tetanus and acellular pertussis (DTaP) vaccination TDAP (ADULT) [facility] Work Phone: Start: 1997 Hepatitis C screening Hepatitis C Screening [facility] Start: 1997 Tetanus vaccination TETANUS [facility] Work Phone: Start: 1995 COVID-19 Vaccine (1) COVID-19 Vaccine (1) [facility] Work Phone: Start: 1994 HIV screen HIV screen [place], [place] Start: 1994 HIV screening HIV screen [facility] Start: 1992 HIV screening HIV SCREENING DISCUSSION [facility] Work Phone: Start: 1991 COVID-19 Vaccine (1) COVID-19 Vaccine (1) [facility] Work Phone: Start: 1991 Depression Monitoring Depression Monitoring [facility] Start: 1991 Depression screening using PHQ-9 (Patient Health Questionnaire 9) score Depression Screening (PHQ-2/9) [facility] Start: 1989 Urine screening for protein Urine Microalbumin [facility] Start: 1985 Pneumococcal Vaccine: Ped or At-Risk (1 - PCV) Pneumococcal Vaccine: Ped or At-Risk (1 - PCV) [facility] Start: 1984 COVID-19 Vaccine (1) COVID-19 Vaccine (1) [facility] Start: 1982 History and physical examination, annual for health maintenance Wellness Visit [facility] Start: 1979 COVID-19 Vaccine (#1) COVID-19 Vaccine (#1) [facility] [employer] Start: 1979 Hepatitis B vaccine (1 of 3 - 3-dose series) Hepatitis B vaccine (1 of 3 - 3-dose series) [facility] [employer] End: 02-13-2021 COVID-19 COVID-19 Lab Routine Suspected COVID-19 virus infection 1 Occurrences starting 02/13/2021 until 02/13/2021 [facility] Phone: Comment on above: 1 Occurrences starting 02/13/2021 until 02/13/2021 COVID-19 COVID-19 Lab Rou luis Suspected COVID-19 virus infection 02/13/2021 3:06 PM EDT [facility] Phone: End: 08-08-2020 COVID-19 Ambulatory COVID-19 Ambulatory Lab Routine SOB (shortness of breath) 1 Occurrences starting 08/08/2020 until 08/08/2020 [place] Comment on above: 1 Occurrences starting 08/08/2020 until 08/08/2020 COVID-19 Ambulatory COVID-19 Amb ulatory Lab Routine SOB (shortness of breath) 08/08/2020 4:02 PM EST [facility] [place] End: 05-20-2021 Creatinine [Mass/volume] in Urine Creatinine, Random Urine Lab Routine Once for 1 Occurrences starting 05/20/2021 until 05/20/2021 [facility] Phone: Comment on above: Once for 1 Occurrences starting 05/20/20 21 until 05/20/2021 Creatinine [Mass/vol ume] in Urine Creatinine, Random Urine Lab Routine 05/20/2021 7:57 PM EDT [facility] Phone: End: 04-13-2021 Culture, Urine Culture, Urine Microbiology Routine Acute cystitis with hematuria 1 Occurrences starting 04/13/2021 until 04/13/2021 [facility] Phone: Comment on above: 1 Occurrences starting 04/13/2021 until 04/13/2021 Culture, Urine [facility] Phone: End: 05-27-2021 Culture, Urine Culture, Urine Microbiology Routine Difficult or painful urination 1 Occurrences starting 05/27/2021 until 05/27/2021 [facility] Phone: Comment on above: 1 Occurrences starting 05/27/2021 until 05/27/2021 End: 06-11-2021 Culture, Urine Culture, Urine Microbiology Routine Acute cystitis with hematuria Recurrent UTI 1 Occurrences starting 06/11/2021 until 06/11/2021 [facility] Phone: Comment on above: 1 Occurrences starting 06/11/2021 until 06/11/2021 End: 07-11-2021 Culture, Urine Culture, Urine Microbiology Routine Frequent UTI Urinary urgency Urinary frequency 1 Occurrences starting 07/11/2021 until 07/11/2021 [facility] Phone: Comment on above: 1 Occurrences starting 07/11/2021 until 07/11/2021 End: 08-01-2021 Culture, Urine Culture, Urine Microbiology Routine Frequent UTI Urinary urgency Urinary frequency 1 Occurrences starting 08/01/2021 until 08/01/2021 [facility] Phone: Comment on above: 1 Occurrences starting 08/01/2021 until 08/01/2021 End: 04-28-2022 Culture, Urine Culture, Urine Microbiology Routine Acute cystitis with hematuria 1 Occurrences starting 04/28/2022 until 04/28/2022 [employer] Phone: Comment on above: 1 Occurrences starting 04/28/2022 until 04/28/2022 End: 02-05-2023 Culture, Urine [employer] Phone: Comment on above: 1 Occurrences starting 02/05/2023 until 02/05/2023 End: 04-12-2022 Hemoglobin A1c/Hemoglobin.total in Blood [facility] Phone: Comment on above: 1 Occurrences starting 04/12/2022 until 04/12/2022 End: 02-05-2023 Hemoglobin A1c/Hemoglobin.total in Blood [facility] Phone: Comment on above: Once for 1 Occurrences starting 02/06/20 until 02/05/2023 End: 08-29-2019 Home Sleep Study Home Sleep Study Sleep Center Routine One Time for 1 Occurrences starting 08/29/2019 until 08/29/2019 [place] Comment on above: One Time for 1 Occurrences starting 08/06 until 08/29/2019 End: 09-24-2019 Methylmalonic Acid, Serum Methylmalonic Acid, Serum Lab Routine Once for 1 Occurrences starting 09/24/2019 until 09/24/2019 [facility] Phone: Comment on above: Once for 1 Occurrences starting 09/24/20 until 09/24/2019 Methylmalonic Acid, Serum Methyl malonic Acid, Serum Lab Routine 09/24/2019 9:33 AM [employer] Phone: End: 09-24-2019 Nuclear Ab [Titer] in Serum by Immunofluorescence [facility] Lab Routine Once for 1 Occurrences starting 09/24/2019 until 09/24/2019 [facility] Phone: Comment on above: Once for 1 Occurrences starting 09/24/20 19 until 09/24/2019 Nuclear Ab [Titer] i n Serum by Immunofluorescence [facility] Lab Routine 09/24/2019 9:33 AM [employer] Phone: End: 05-20-2021 Protein, urine, random Protein, urine, random Lab Routine Once for 1 Occurrences starting 05/20/2021 until 05/20/2021 [employer] Phone: Comment on above: Once for 1 Occurrences starting 05/20/20 21 until 05/20/2021 Protein, urine, random Protein, urine, random Lab Routine 05/20/2021 7:57 PM EDT [facility] Phone: End: 12-14-2019 Sedimentation Rate Sedimentation Rate Lab Routine MRSA (methicillin resistant Staphylococcus aureus) septicemia (HCC) 1 Occurrences starting 12/14/2019 until 12/14/2019 [employer] [place] Comment on above: 1 Occurrences starting 12/14/2019 until 12/14/2019 Sedimentation Rate Sedimentation Rate Lab Routine MRSA (methicillin resistant Staphylococcus aureus) septicemia (HCC) 12/14/2019 12:39 PM EDT [facility] [place] End: 09-24-2019 Sjogrens syndrome-A extractable nuclear antibody Sjogrens syndrome-A extractable nuclear antibody Lab Routine Once for 1 Occurrences starting 09/24/2019 until 09/24/2019 [employer] Phone: Comment on above: Once for 1 Occurrences starting 09/24/20 19 until 09/24/2019 Sjogrens syndrome-A extractable nuclear antibody Sjogrens syndrome-A extractable nuclear antibody Lab Routine 09/24/2019 9:33 AM [employer] Phone: End: 09-24-2019 Sjogrens syndrome-B extractable nuclear antibody Sjogrens syndrome-B extractable nuclear antibody Lab Routine Once for 1 Occurrences starting 09/24/2019 until 09/24/2019 [facility] Phone: Comment on above: Once for 1 Occurrences starting 09/24/20 19 until 09/24/2019 Sjogrens syndrome-B extractable nuclear antibody Sjogrens syndrome-B extractable nuclear antibody Lab Routine 09/24/2019 9:33 AM [employer] Phone: End: 09-12-2019 Sleep Study with PAP Titration Sleep Study with PAP Titration Sleep Center Routine One Time for 1 Occurrences starting 09/12/2019 until 09/12/2019 [facility] Phone: Comment on above: One Time for 1 Occurrences starting 06/2019 until 09/12/2019 End: 09-24-2019 Vitamin B6 Vitamin B6 Lab Routine Once for 1 Occurrences starting 09/24/2019 until 09/24/2019 [employer] Phone: Comment on above: Once for 1 Occurrences starting 09/24/20 19 until 09/24/2019 Vitamin B6 Vitamin B6 Lab R outine 09/24/2019 9:33 AM EST [facility] Phone: Immunizations Immunization Date Immunization Notes Care Provider Fa silviaty 09-08-2014 tetanus toxoid, redu gaby diphtheria toxoid, and acellular pertussis vaccine, adsorbed Felipe Back [facility] [place], [place] Payers Date Payer Category Payer Self-pay [id number] 2017 Unknown 2016 Unknown [id number] 2016 Unknown xxxxxxxxxxxxxxx [id number] 2014 Medicaid [id number] [id number] 2014 Medicaid [facility] MEDICAID [facility] MEDICAID xxxxxxxxxxx 2014-Present xxxxxxxxxxx [id number] 1979 Unknown [id number] 2.16.840.1.065101.3.579.2.356 1979 Unknown [id number] 2.16.840.1.496779.3.579.2.356 1979 Unknown [id number] 2.16.840.1.899630.3.579.2.717 1979 Unknown [id number] 2.16.840.1.084387.3.579.2.717 1979 Unknown [id number] 2.16.840.1.836054.3.579.2.175 1979 Unknown [id number] 2.16.840.1.023811.3.579.2.903 1979 Unknown [id number] 2.16.840.1.010913.3.579.2.182 1979 Unknown [id number] 2.16.840.1.651122.3.579.2.185 1979 Unknown [id number] 2.16.840.1.996498.3.579.2.903 1979 Unknown [id number] 2.16.840.1.574666.3.579.2.593 1979 Unknown [id number] 2.16.840.1.442943.3.579.2.593 1979 Unknown [id number] 2.16.840.1.164277.3.579.2.593 1979 Unknown [id number] 2.16.840.1.912198.3.579.2.903 1979 Unknown [id number] 2.16.840.1.826249.3.579.2.903 1979 Unknown [id number] 2.16.840.1.282945.3.579.2.903 1979 Unknown [id number] 2.16.840.1.968708.3.579.2.1259 1979 Unknown [id number] 2.16.840.1.844190.3.579.2.1259 1979 Unknown [id number] 2.16.840.1.115545.3.579.2.174 1979 Unknown [id number] 2.16.840.1.289711.3.579.2.174 1979 Unknown [id number] 2.16.840.1.175755.3.579.2.174 1979 Unknown [id number] 2.16.840.1.503275.3.579.2.174 1979 Unknown [id number] 2.16.840.1.107514.3.579.2.174 1979 Unknown [id number] 2.16.840.1.511490.3.579.2.174 1979 Unknown [id number] 2.16.840.1.291004.3.579.2.174 1979 Unknown [id number] 2.16.840.1.310445.3.579.2.174 1959 Unknown [id number] 1.2.840.530004.1.13.239.2.7.3.6 [id number] Unknown 114 Unknown [id number] 2.16.840.1.773144.3.579.2.531 Social History Date Type Detail Facility Start: 05-01-2015 End: 04-28-2022 Tobacco smoking status [facility] Never smoker [employer] Phone: Start: 1980 Sex Assigned At Not on file [employer] Phone: Start: 05-27-2019 End: 03-23-2023 Alcohol intake No [place] Start: 12-13-2019 End: 05-26-2023 Alcohol intake Current non-drinker of alcohol (finding) [place] Start: 12-09-2019 End: 05-13-2021 History SDOH Financial 4 [place] Start: 12-09-2019 End: 05-20-2022 History SDOH Food Worry 1 [place] Start: 12-09-2019 History SDOH Transport Med 2 [place] Start: 05-11-2020 End: 04-28-2022 Tobacco use and exposure Never used [place], [place] Start: 10-30-2021 End: 03-02-2023 Exposure to SARS-CoV-2 (event) Not sure [place], [place] Start: 1980 Sex Assigned At Female [facility] Start: 05-20-2022 History SDOH Financial 3 [facility] [employer] Phone: Start: 01-06-2023 End: 03-23-2023 History of Social function [facility] How hard is it for y ou to pay for the very basics like food, housing, medical care, and heating Not very hard [facility] Patient Health Questionnaire 9 item (PHQ-9) total score [Reported] 0 [facility] (I/We) worried wheth er (my/our) food would run out before (I/we) got money to buy more. Never true Thounds At any time in the p ast 12 months, were you homeless or living in fdc [including now]? No [facility] Start: 10-09-2020 Gender identity Identifies as female gender (finding) [facility] Start: 10-09-2020 Sexual orientation Heterosexual (finding) [facility] Clinical Notes 12-23-2021 to 03-03-2023 MASSIMO Shook [...] She follows with an outside provider in [place] and was immobilized for an extended period [...] & Ankle Surgery documented in this encounter [facility] 01-29-2023 Note PROCEDURE: XR ANKLE LT [...] authenticated by: PIPER MERCEDES Date: 2023-01-29 07:05 [facility] 01-29-2023 Note PROCEDURE: XR ANKLE LT MIN [...] authenticated by: PIPER MERCEDES Date: 2023-01-29 07:05 [facility] 07-09-2022 History of Present illness Narrative MNT [...] BMR: 1573 calories Est. total calorie needs: ~4040-2917 Lab Results Component Value Date/Time TRIG 460 [...] bread Supper: pork chop or chicken, homemade uruguayan fries, mashed, or baked potato with broccoli [...] minutes. documented in this encounter [facility] [employer] Phone: 02-05-2022 History of Present illness Narrative [facility] Date: 02/05/2022 Patient Name: Celina Gaspar : 1980 Pt No Showed Appt- Follow up call, left message on voicemail that patient discharged, but to call if has questions or concerns. Christel Donohue, PT Date: 02/05/2022 documented in this encounter [facility] Phone: 02-05-2022 Hospital course Narrative Images from the original note were not included. [facility] Discharge Summary Patient: Celina Gaspar : 1980 Referring Practitioner: Liliane Sawyer APRN, POWER DIGGER OPERATOR Referral Date : 12/19/21 Diagnosis: Lumbar radiculopathy [...] PT Date: 02/05/2022 documented in this encounter [facility] Phone: 02-03-2022 History of Present illness Narrative [facility] Date: 02/03/2022 Patient Name: Celina Gaspar : 1980 Pt Cancelled Appt due to no reason for cancel. Jerica Melgar Date: 02/03/2022 documented in this encounter [facility] Phone: 01-29-2022 History of Present illness Narrative Images from the original note were not included. [facility] Daily Note Date: 01/29/2022 Patient Name: Celina Gaspar : 1980 (41 y.o.) Referring Practitioner: Liliane Sawyer APRN, POWER DIGGER OPERATOR Referral Date : 12/19/21 Diagnosis: Lumbar radiculopathy [...] Increase trunk ROM B rotation WFL-Not Met [facility] Goals - Time Frame for penitentiary goals : 10 [facility] Goals Time Frame for intermission coordinator goals : 10 penitentiary goal 1: Decrease pain low back 2/10 at worst x3 days for completing normal activities intermission coordinator goal 2: Patient to report 50% decrease in radicular symptoms L LE Post Treatment Pain: 5/10 Time In: 0859 Time Out: 0947 Timed Code Treatment Minutes: 48 Minutes Total Treatment Time: 48 Minutes Beverly Rangel, JENNIFER Date: 01/29/2022 documented in this encounter [facility] Phone: 01-27-2022 History of Present illness Narrative Images from the original note were not included. 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 Goals - Time Frame for penitentiary goals : 10 [facility] Goals Time Frame for intermission coordinator goals : 10 intermission coordinator goal 1: Decrease pain low back 2/10 at worst x3 days for completing normal activities penitentiary goal 2: Patient to report 50% decrease in radicular symptoms L LE Post Treatment Pain: 5/10 Time In: 0952 Time Out: 1030 Timed Code Treatment Minutes: 38 Minutes Total Treatment Time: 38 Minutes Vanessa Garcia, PT Date: 01/24/2022 documented in this encounter [facility] Phone: 01-22-2022 History of Present illness Narrative [facility] Date: 01/22/2022 Patient Name: Celina Gaspar : 1980 Patient did not show up for her appointment. Message left on answering machine with a reminder of her next appointment on Thursday. Beverly Rangel, VISUALIZATION DEVELOPER Date: 01/22/2022 documented in this encounter [facility] Phone: 01-17-2022 History of Present illness Narrative Images from the original note were not included. [facility] Daily Note Date: 01/17/2022 Patient Name: Celina Gaspar : 1980 (41 y.o.) Referring Practitioner: Liliane Sawyer APRN, CNP Referral Date : 12/19/21 Diagnosis: Lumbar radiculopathy Treatment Diagnosis: Back Pain Onset Date: 12/19/21 (Referral) PT Insurance Information: BS Total # of Visits Approved: 10 Per Physician Order Total # of Visits to Date: 5 Plan of Care/Certification Expiration Date: 02/07/22 Pre-Treatment Pain: 5/10 Assessment Assessment: Patient arrives with pain 02/11. Pt on lifting restriction d/t carpal tunnel [...] 4: Increase trunk ROM B rotation WFL Usp Goals - Time Frame for penitentiary goals : 10 penitentiary goal 1: Decrease pain low back 2/10 at worst x3 days for completing normal activities intermission coordinator goal 2: Patient to report 50% decrease in radicular symptoms L LE Post Treatment Pain: 5/10 Time In: 1037 Time Out: 1107 Timed Code Treatment Minutes: 30 Minutes Total Treatment Time: 30 Minutes Beverly Rangel PTA Date: 01/17/2022 documented in this encounter [facility] Phone: 01-13-2022 History of Present illness Narrative [facility] Date: 01/13/2022 Patient Name: Celina Gaspar : 1980 Pt Cancelled Appt due to no reason given. NABILA Metzger Date: 01/13/2022 documented in this encounter [facility] Phone: 01-03-2022 History of Present illness Narrative Images from the original note were not included. 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 [facility] Occupational Therapy Daily Note Date: 12/31/2021 [...] Time Frame for Short term goals: STG=LTG Usp Goals Time Frame for intermission coordinator goals : 12 visits (01/24/2022) penitentiary goal 1: pt to be indepenent in HEP-MET intermission coordinator goal 2: Pt to demonstrate R wrist flexion to 65 degrees or more in order to engage in daily tasks-MET intermission coordinator goal 3: Pt to demonstrate R wrist extension to 60 degrees or more in order to engage in daily tasks-MET intermission coordinator goal 4: Pt to be educated on carpal tunnel do's & dont's in order to prevent further repetitive injury to wrist-MET Timed Code Treatment Minutes: 30 Minutes Time In: 915 Time Out: 945 Timed Coded Minutes: 30 Total Treatment Time: 30 THERESA Houser, OTR/L Date: 12/31/2021 documented in this encounter [facility] Phone: 12-31-2021 Hospital course Narrative Images from the original note were not included. [facility] Discharge Summary Patient: Celina [...] has been provided w/ HEP for continued pinch/shoe stitcher odd strengthening & stretching. Therapist provided pt with handout on Carpal Tunnel Dos & Dont's to avoid re-injury. Prognosis: Fair Goals Short Term Goals Time Frame for Short term goals: STG=LTG Usp Goals Time Frame for intermission coordinator goals : 12 visits (01/24/2022) penitentiary goal 1: pt to be indepenent in HEP-MET intermission coordinator goal 2: Pt to demonstrate R wrist flexion to 65 degrees or more in order to engage in daily tasks-MET intermission coordinator goal 3: Pt to demonstrate R wrist extension to 60 degrees or more in order to engage in daily tasks-MET penitentiary goal 4: Pt to be educated on carpal tunnel do's & dont's in order to prevent further repetitive injury to wrist-MET Reason for Discharge [] Poor Follow Through [] Completion of Prescribed Sessions [x] Optimal Function Achieved [] Patient Discharged Self [x] Goals Achieved Comments: Thank you for this referral THERESA Houser, OTR/L Date: 12/31/2021 documented in this encounter [facility] Phone: 12-31-2021 History of Present illness Narrative Images from the original note were not included. [facility] Evaluation Date: 12/31/2021 Patient: [...] 4: Increase trunk ROM B rotation WFL penitentiary goals Time Frame for intermission coordinator goals : 10 penitentiary goal 1: Decrease pain low back 2/10 at worst x3 days for completing normal activities penitentiary goal 2: Patient to report 50% decrease in radicular symptoms L LE Patient's Goal: Decrease back pain to complete normal activities Timed Code Treatment Minutes: 15 Minutes Total Treatment Time: 45 Time In: 8:30 Time Out: 9:15 Christel Donohue PT Date: 12/31/2021 documented in this encounter [facility] Phone: 12-30-2021 History of Present illness Narrative Images from the original note were not included. [facility] Daily Note Date: 12/30/2021 [...] Time Frame for Short term goals: STG=LTG Usp Goals Time Frame for intermission coordinator goals : 12 visits (01/24/2022) intermission coordinator goal 1: pt to be indepenent in HEP-MET penitentiary goal 2: Pt to demonstrate R wrist flexion to 65 degrees or more in order to engage in daily tasks-MET intermission coordinator goal 3: Pt to demonstrate R wrist extension to 60 degrees or more in order to engage in daily tasks-MET intermission coordinator goal 4: Pt to be educated on carpal tunnel do's & dont's in order to prevent further repetitive injury to wrist-MET Time In: 835 Time Out: 915 Timed Coded Minutes: 40 Total Treatment Time: 40 THERESA Houser, OTR/L Date: 12/30/2021 documented in this encounter [facility] Phone: 12-23-2021 History of Present illness Narrative Images from the original note were not included. [facility] Evaluation Date: 12/23/2021 Patient: [...] completing these mvmts Left Hand Strength - Carton Marker Machine (lbs) Handle Setting 2: 54#, 50#, 53# (52.3# ave) Left Hand Strength - Pinch (lbs) Lateral: 13.5# Tip: 8# Palmar 3 point: 11# Right Hand Strength - Carton Marker Machine (lbs) Handle Setting 2: 53#, 54#, 53# [...] Time Frame for Short term goals: STG=LTG intermission coordinator goals Time Frame for penitentiary goals : 12 visits (01/24/2022) penitentiary goal 1: pt to be indepenent in HEP intermission coordinator goal 2: Pt to demonstrate R wrist flexion to 65 degrees or more in order to engage in daily tasks penitentiary goal 3: Pt to demonstrate R wrist extension to 60 degrees or more in order to engage in daily tasks intermission coordinator goal 4: Pt to be educated on carpal tunnel do's & dont's in order to prevent further repetitive injury to wrist Patient's Goal: pt wishes to return to prior function Time In: 830 Time Out: 924 Timed Coded Minutes: 0 Total Treatment Time: 54 THERESA Houser, OTR/L 12/23/2021 documented in this encounter [facility] Phone: Evaluation note Diagnosis Viral illness Unspecified viral infection, in conditions classified elsewhere and of unspecified site documented in this encounter [facility] Phone: evaluation note* Diagnosis Suspected COVID-19 virus infection documented in this encounter [facility] Phone: evaluation note* Diagnosis Acute cystitis with hematuria Acute cystitis documented in this encounter [facility] Phone: evaluation note* Diagnosis Difficult or painful urination Dysuria documented in this encounter [facility] Phone: evaluation note* Diagnosis Acute cystitis with hematuria Acute cystitis Recurrent UTI Urinary tract infection, site not specified documented in this encounter [facility] Phone: evalrlfciw note* Diagnosis Frequent UTI Urinary tract infection, site not specified Urinary urgency Urgency of urination Urinary frequency documented in this encounter [facility] Phone: evaluation note* Diagnosis Frequent UTI Urinary tract infection, site not specified Urinary urgency Urgency of urination Urinary frequency documented in this encounter [employer] Work Phone: evaluation note* Diagnosis MRSA (methicillin resistant Staphylococcus aureus) septicemia ([facility]) Methicillin resistant staphylococcus aureus septicemia documented in this encounter [facility] noteNo assessment information [facility] Work Phone: Evaluation note* Diagnosis Fatigue, unspecified type Encounter for screening for HIV Mixed hyperlipidemia Hyperglycemia Other abnormal glucose Chronic renal impairment, stage 3b (HCC) documented in this encounter [employer] Work Phone: evaluation note* Diagnosis Acute cystitis with hematuria Acute cystitis documented in this encounter [employer] Work Phone: evaluation note* Diagnosis Neck mass Swelling, mass, or lump in head and neck documented in this encounter [facility] Phone: evaluation note* Diagnosis Pain of foot, unspecified laterality Closed nondisplaced fracture of second metatarsal bone of left foot, initial encounter Closed nondisplaced fracture of lateral cuneiform of left foot, initial encounter documented in this encounter [employer] Work Phone: evaluation note* Diagnosis Foreign body (FB) in soft tissue Residual foreign body in soft tissue documented in this encounter [employer] Work Phone: evaluation note* Diagnosis Pelvic pressure in female Other specified symptom associated with female genital organs documented in this encounter [facility] Phone: evaluation note* Diagnosis Charcot arthropathy of midfoot- Primary Gastrocnemius equinus, unspecified laterality Foot pain, left Pain in soft tissues of limb documented in this encounter [facility] note* Diagnosis Mixed hyperlipidemia documented in this encounter [facility] [facility] Purpose Family History No Family History Records [...] FoundDocuments on File Type Date Recorded 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 Advance Directives and Living Will Power of [employer] Latest Code Status on File Code Status Date Activated Date Inactivated Comments Full Code 08/15/2018 4:17 PM 08/25/2018 8:55 PM Full Code 03/19/2017 1:37 PM 03/19/2017 4:32 PM Full Code 03/19/2017 10:57 AM 03/19/2017 1:37 PM Full Code 03/05/2017 12:56 PM 03/05/2017 3:55 PM Full Code 03/05/2017 10:05 AM 03/05/2017 12:56 PM Documents on File Type Date Recorded 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 * Back Care Basics: General Info (Yi) * Back: Preventing Injuries (Yi) documented in this encounter Reason for Referral Status Reason Specialty Diagnoses / Procedures Referre d By Contact Referred To Contact Closed Radiology Diagnoses Brachial neuritis Peripheral nerve disorder Spasm of muscle Procedures MR Cervical Spine Without Contrast Tiffanie Casas MD [address] [id number] Specialty Diagnoses / Procedures Referred By Contac t Referred To Contact Radiology Diagnoses Neck mass Procedures US HEAD NECK SOFT TISSUE THYROID Back, MD [address] [place] [address] Referral ID Status Reason Start Date Expiration Date Visits Re quested Visits Authorized [id number] Closed 05/27/2022 05/27/2023 1 1 Chief Complaint and Reason for Visit Chief Complaint M54.16 M79.10 M79.60 9 R20.9 Chief Complaint Unknown Additional Source Comments INFORMATION SOURCE (unrecogn ized section and content) DATE CREATED AUTHOR 03/30/2018 [facility] DATE CREATED AUTHOR AUTHOR'S ORGANIZ ATION 03/30/2018 [facility] DATE CREATED AUTHOR AUTHOR'S ORGANIZ ATION 09/15/[address] [facility] DATE CREATED AUTHOR AUTHOR'S ORGANIZ ATION 09/23/2018 [facility] DATE CREATED AUTHOR AUTHOR'S ORGANIZ ATION 09/26/2018 [facility] DATE CREATED AUTHOR AUTHOR'S ORGANIZ ATION 12/10/2018 [facility] DATE CREATED AUTHOR AUTHOR'S ORGANIZ ATION 12/18/2018 [facility] DATE CREATED AUTHOR AUTHOR'S ORGANIZ ATION 02/11/2019 [facility] DATE CREATED AUTHOR AUTHOR'S ORGANIZ ATION 11/30/2021 [facility] DATE CREATED AUTHOR AUTHOR'S ORGANIZ ATION 05/01/2022 [facility] DATE CREATED AUTHOR AUTHOR'S ORGANIZ ATION 08/22/2022 [facility] DATE CREATED AUTHOR AUTHOR'S ORGANIZ ATION 01/12/2023 [facility] DATE CREATED AUTHOR AUTHOR'S ORGANIZ ATION 02/15/[address] [facility] DATE CREATED AUTHOR AUTHOR'S ORGANIZ ATION 03/14/2023 [facility] DATE CREATED AUTHOR AUTHOR'S ORGANIZ ATION 04/04/2023 [facility] DATE CREATED AUTHOR AUTHOR'S ORGANIZ ATION 10/30/2023 [facility] DATE CREATED AUTHOR AUTHOR'S ORGANIZ ATION 02/20/2024 [facility] DATE CREATED AUTHOR AUTHOR'S ORGANIZ ATION 03/08/2024 [facility] Reason for Visit (unrecogniz ed section and content) Status Reason Specialty Diagnoses / Procedures Referre d By Contact Referred To Contact Closed Radiology Diagnoses Brachial neuritis Peripheral nerve disorder Spasm of muscle Procedures MR Cervical Spine Without Contrast Tiffanie Casas MD [address] [place] [address] Specialty Diagnoses / Procedures Referred By Contac t Referred To Contact Occupational Therapy Diagnoses Carpal tunnel syndrome Carpal Tunnel Syndrome Procedures Eval and treat Keenan Lozano MD [address] [address] [facility] [address] [place] [address] Referral ID Status Reason Start Date Expiration Date Visits Re quested Visits Authorized [id number] Open 12/19/2021 12/19/2022 1 1 Specialty Diagnoses / Procedures Referred By Contac t Referred To Contact Physical Therapy Diagnoses Radiculopathy, lumbar region Lumbar Radiculopathy Procedures Eval and treat Janel Allen, FEED PREPARATION OPERATOR - POWER DIGGER OPERATOR [address] [id number] [facility] [address] [place] [phone] Referral ID Status Reason Start Date Expiration Date Visits Re quested Visits Authorized [id number] Open 12/19/2021 12/19/2022 1 1 Specialty Diagnoses / Procedures Referred By Contac t Referred To Contact Radiology Diagnoses Neck mass Procedures US HEAD NECK SOFT TISSUE THYROID Back, MD [address] [place] [address] Referral ID Status Reason Start Date Expiration Date Visits Re quested Visits Authorized [id number] Closed 05/27/2022 05/27/2023 1 1 Specialty Diagnoses / Procedures Referred By Contac t Referred To Contact Radiology Diagnoses Pain of foot, unspecified laterality Closed nondisplaced fracture of lateral cuneiform of left foot, initial encounter Procedures MRI FOOT LEFT W WO CONTRAST MRI FOOT LEFT W WO CONTRAST Robbin Sánchez, DPM [address] [facility], [address] [place] [id number] Referral ID Status Reason Start Date Expiration Date Visits Re quested Visits Authorized [id number] Closed 06/20/2022 06/20/2023 1 1 Reason Comments Education Class Specialty Diagnoses / Procedures Referred By Contac t Referred To Contact Diabetes Services Diagnoses Pre-diabetes Jair, MD [address] [place] [address] [facility] [address] [place] [address] Referral ID Status Reason Start Date Expiration Date V isits Requested Visits Authorized [id number] Open Specialty Services Required 06/30/2022 06/30/2023 2 2 Specialty Diagnoses / Procedures Referred By Contac t Referred To Contact Diabetes Services Diagnoses Pre-diabetes Back, MD [address] [phone] [facility] [address] [place] [address] Reason Comments Other Left foot charcot on -going since 06/2022. New x-rays today. 2nd of opinion. Care Teams (unrecognized sec tion and content) Plasterer Spray Gun Relationship Specialty Start Date End Date Back, MD [address] [place] [address] PCP - General Internal Medicine 11/14/11 Plasterer Spray Gun Relationship Specialty Start Date End Date Back, MD [address] [place] [address] PCP - General Internal Medicine 11/14/11 Plasterer Spray Gun Relationship Specialty Start Date End Date Back, MD [address] [place] [address] PCP - General Internal Medicine 11/14/11 Plasterer Spray Gun Relationship Specialty Start Date End Date Back, MD [address] [place] [address] PCP - General Internal Medicine 11/14/11 Plasterer Spray Gun Relationship Specialty Start Date End Date Back, MD [address] [place] [address] PCP - General Internal Medicine 11/14/11 Plasterer Spray Gun Relationship Specialty Start Date End Date Back, MD [address] [place] [address] PCP - General Internal Medicine 11/14/11 Plasterer Spray Gun Relationship Specialty Start Date End Date Back, MD [address] [place] [address] PCP - General Internal Medicine 11/14/11 Team Status: Inactive Member Role Status Dates NON STAFF Primary Care Provider Active Tiffanie Casas MD Attending Provider Active Team Status: Active Member Role Status Dates NON STAFF Primary Care Provider Active Plasterer Spray Gun Relationship Specialty Start Date End Date Back, MD [address] [place] [address] PCP - General Internal Medicine 11/14/11 Plasterer Spray Gun Relationship Specialty Start Date End Date Back, MD [address] [place] [address] PCP - General Internal Medicine 11/14/11 Plasterer Spray Gun Relationship Specialty Start Date End Date Back, MD [address] [place] [address] PCP - General Internal Medicine 11/14/11 Plasterer Spray Gun Relationship Specialty Start Date End Date Back, MD [address] [place] [address] PCP - General Internal Medicine 11/14/11 Plasterer Spray Gun Relationship Specialty Start Date End Date Back, MD [address] [place] [address] PCP - General Internal Medicine 11/14/11 Plasterer Spray Gun Relationship Specialty Start Date End Date Back, MD [address] [place] [address] PCP - General Internal Medicine 11/14/11 Plasterer Spray Gun Relationship Specialty Start Date End Date Back, MD [address] [place] [address] PCP - General Internal Medicine 11/14/11 Plasterer Spray Gun Relationship Specialty Start Date End Date Back, MD [address] [place] [address] PCP - General Internal Medicine 11/14/11 Plasterer Spray Gun Relationship Specialty Start Date End Date Back, MD [address] [place] [address] PCP - General Internal Medicine 03/26/15 Plasterer Spray Gun Relationship Specialty Start Date End Date Jair, MD [address] [place] [address] PCP - General Internal Medicine 11/14/11 Team Status: Inactive Member Role Status Dates Frances Harris DPM MS Attending Provider Active Start: February 15, 2024 End: February 15, 2024 Goals (unrecognized section and content) Goals may be documented in a n alternate sectionGoals may be documented in an alternate section FOR RECORDS PERTAINING TO PATIENTS [...] BE BASED ON THE PRIMARY CLINICAL RECORDS. [employer] provides no warranty or guarantee of the accuracy or completeness of information in this document.
== END 2024-04-27 10:36 | disposition home or self-care (01) ==
LOC: WC 10:35
PROVIDERS: Visit Provider Podiatrist Foot & Ankle Surgery
DX: T81.31XA Disruption of external operation (surgical) wound, not elsewhere classified, initial encounter (principal); L97.428 Non-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 with other specified severity
CPT/HCPCS: 11042; 73630

== ENCOUNTER 2024-05-13 10:50 | Outpatient (OUT) | payer BC, SELFPAY | END 2024-05-13 10:51 | disposition home or self-care (01) | LOC: WC 10:51 | PROVIDERS: Visit Provider Podiatrist Foot & Ankle Surgery | DX: L97.428 Non-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 with other specified severity (principal) | CPT/HCPCS: 11042; 29445 ==

== ENCOUNTER 2024-05-19 13:32 | Outpatient (OUT) | payer BC, SELFPAY ==
--- OUTSIDE RECORDS SUMMARY | 2024-05-19 13:54 | XMS_ITS | CCD ---
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 Name Role Phone Back, Felipe Unavailable Unavailable DAKSHA KING Unavailable Unavailable SHANICE JUARES Unavailable Unava ilable GHAZOUL, GAYE Unavailable Unavailable GHAZOUL, GAYE Unavailable Unavailable GHAZOUL, GAEY Unavailable Unavailable GHAZOUL, GAYE Unavailable Unavailable Back, [...] Care Provider Back, Felipe Primary Care Provider [phone] Back, Felipe Primary Care Provider Unavailabl e Back , Felipe Primary Care Provider Back MD, Felipe Primary Care Provider Back MD, Felipe Primary Care Provider BACK, FELIPE Primary Care Unavailable MUTNAL, AMAR Admitting Unavailable MUTNAL, AMAR Attending Unavailable Back , Felipe Primary Care Provider [phone] NON STAFF Primary Care Provider UnavailMD Tiffanie Mixon. Attending Provider [phone] Back , Felipe Primary Care Provider YOON COBB Referring Unavailable BACK, FELIPE Primary Care Unavailable Back , Felipe Primary Care Provider KALPESH ARENAS Attending Unavail able BACK, FELIPE Primary Care Unavailable Back , Felipe Primary Care Provider [phone] FRANCES HARRIS Admitting Unavailable FRANCES HARRIS Attending Unavailable FRANCES HARRIS Consulting Unavailable FRANCES HARRIS Admitting Unavailable HIGHLFRANCES HERNANDEZ Attending Unavailable [facility], DR PIPER Ackerman Consulting Unavailable HIGHLFRANCES HERNANDEZ Consulting Unavailable HIGHLFRANCES HERNANDEZ Admitting Unavailable HIGHLFRANCES HERNANDEZ Attending Unavailable ROMNEY, DR EMILY Riojas Consulting Unavailable HIGHLANDERFRANCES Consulting Unavailable Back , Felipe Primary Care Provider ROBBIN SHOOK II Admitting Un available HASSMANN IIROBBIN Referring Un available BACK, FELIPE Primary Care Unavailable HASSMANN II, ROBBIN DAHL Attending Un available BACK, FELIPE Primary Care Unavailable BACK, FELIPE Primary Care Unavailable HASSMANN II, ROBBIN DAHL Attending Un available Back , Felipe Primary Care Provider INDER Harris Attending Provider Frances Harris Attending Unavailable Frances Harris Admitting Unavailable TIFFANIE CASAS Attending Unavailable TIFFANIE CASAS Attending Unavailable LORE VARGAS Attending Unavailable BACK, FELIPE Referring Unavailable BACK, FELIPE Primary Care Unavailable TIFFANIE CASAS Referring Unavailable BACK, FELIPE Primary Care Unavailable TAMMI QUIÑONES Referring Unavailabl e BACK, FELIPE Primary Care Unavailable BACK, FELIPE Referring Unavailable BACK, FELIPE Primary Care Unavailable BACK, FELIPE Referring Unavailable BACK, FELIPE Primary Care Unavailable TIFFANIE CASAS Referring Unavailable BACK, FELIPE Primary Care Unavailable BACK, FELIPE Referring Unavailable BACK, FELIPE Primary Care Unavailable BACK, FELIPE Referring Unavailable BACK, FELIPE Primary Care Unavailable JERICA KRISHNAMURTHY Referring Unavailable BACK, FELIPE Primary Care Unavailable JEAN MARIEADANA, HEATHER Referring Unavailable BACK, FELIPE Primary Care Unavailable BACK, FELIPE Referring Unavailable BACK, FELIPE Primary Care Unavailable Allergies Allergy Classification Reported Allergen(s) Allergy Type Date of Onset Reaction(s) Facility (3 sources) Chlorhexidine; Translations: [CHLORHEXIDINE] Drug Allergy 03-03-2023 Rash [facility] (1 source) topiramate Drug Allergy 10-29-2023 [facility] Medications Current Medications Medication Drug Class(es) Dates [...] Start: 01-14-2023 take 1 capsule by mo [facility] once daily in the morning amphetamine-dextroamphetamine (ADDERALL [...] 0 Active baclofen 10 mg oral tablet (10 sources) gamma-Aminobutyric Acid-ergic Agonist Start: 02-26-2023 take 2 tablets by mouth at bedtime baclofen (LIORESAL) 10 MG tablet TAKE 2 TABLETS BY MOUTH AT BEDTIME FOR 30 DAYS 0 02/26/2023 Active Start: 04-19-2022 baclofen (DORA ESAL) 10 MG tablet biotin 1 mg oral tablet (10 sources) Start: 02-26-2022 Biotin 1000 MC G TABS busPIRone hydrochloride 10 mg oral tablet (6 sources) take 1 tablet by mouth three times daily busPIRone (BUSPAR) 10 MG tablet Take 10 mg by mouth 3 times daily 0 Active calcium carbonate 500 mg oral tablet (4 sources) take 1 tablet by mouth twice daily calcium carbonate (OSCAL) 500 MG TABS tablet Take 1 tablet by mouth 2 times daily 0 Active calcium carbonat e (CALCIUM 500 ORAL) Take by mouth . 0 Active cephalexin 250 mg oral capsule (3 sources) Cephalosporin Antibacterial Start: 08-13-2023 take 1 capsule by mouth once daily as needed for urinary tract infection cephALEXin (KEFLEX) 250 MG capsule Indications: Frequent UTI Take 1 capsule by mouth daily as needed (post-coital UTI prophylaxis) 30 capsule 1 08/13/2023 Active Start: 08-07-2022 take 1 capsule by [facility] once daily as needed for urinary tract [...] oral tablet (1 source) alpha-Adrenergic Agonist, Uncompetitive Y-umkwhf-I-aspartat e Receptor Antagonist, Sigma-1 Agonist Start: 02-13-2021 [...] 08/19/2017 Active famotidine 20 mg oral tablet (7 sources) Histamine-2 Receptor Antagonist Start: 03-08-2024 take 1 tablet by mouth twice daily famotidine (PEPCID) 20 MG tablet Indications: Gastroesophageal reflux disease without esophagitis Take 1 tablet by mouth 2 times daily 180 tablet 1 03/08/2024 Active Start: 05-26-2023 take 1 tablet by prabhjot th twice [...] sources) Peroxisome Proliferator Receptor alpha Agonist Start: 03-08-2024 gemfibrozil (LOPID) 600 MG tablet Indications: Mixed hyperlipidemia TAKE 1 TABLET TWICE A DAY 30 MINUTES BEFORE BREAKFAST AND SUPPER 180 tablet 1 03/08/2024 Active Start: 02-12-2023 gemfibrozil (L OPID) 600 MG tablet Indications: [...] SUPPER 180 tablet 1 10/09/2020 Active Start: 06-09-2017 gemfibrozil (L OPID) 600 MG tablet Indications: Mixed hyperlipidemia TAKE 1 TABLET TWICE A DAY 30 MINUTES BEFORE BREAKFAST AND SUPPER 180 tablet 1 01/31/2020 Active lansoprazole 30 mg delayed release oral capsule (5 sources) Proton Pump Inhibitor take 1 capsule by mouth once daily lansoprazole (PREVACID) 30 MG capsule Take 30 mg by mouth daily. 0 Active linaclotide 0.145 mg oral capsule (1 source) Guanylate Cyclase-C Agonist Start: 05-09-20 take 1 capsule by mouth once daily linaclotide (LINZESS) 145 MCG capsule Indications: Drug-induced constipation Take 1 capsule by mouth daily 90 capsule 1 05/09/2024 Active lisdexamfetamine dimesylate 40 mg oral capsule (20 sources) Central Nervous System Stimulant Start: 03-04-20 VYVANSE 40 MG CAPS Take 50 mg by mouth daily. 0 03/04/2023 Active Start: 03-04-2023 VYVANSE 40 MG CAPS Start: 05-06-2021 VYVANSE [...] 38.0 to 38.9 in adult ([facility]) Take 1 tablet by mouth every [...] 40.0 to 44.9 in adult ([facility]) Take 1 capsule by mouth every morning for 30 days. 30 capsule 0 05/27/2019 06/26/2019 Active predniSONE 20 mg oral tablet (1 source) Start: 09-16-2020 End: 09-21-2020 take 3 tablets by mouth once daily predniSONE (DELTASONE) 20 MG tablet Take 3 tablets by mouth daily for 5 days 15 tablet 0 09/16/2020 09/21/2020 Active pregabalin 300 mg oral capsule (20 sources) Start: 02-20-2022 take 1 capsule by mouth twice daily pregabalin (LYRICA) 300 MG capsule Take 1 capsule by mouth 2 times daily. 0 02/20/2022 Active Start: 08-25-2018 take 1 capsule by mo ut three times daily pregabalin (LYRICA) 150 MG [...] Active rimegepant 75 mg disintegrating oral tablet (10 sources) Start: 01-02-[address] 1 TABLET ON OR UNDER THE TONGUE EVERY OTHER DAY 0 01/02/2022 Active rOPINIRole 1 mg oral tablet (20 sources) Nonergot Dopamine Agonist Start: 05-09-2024 take 1 tablet by mouth three times daily rOPINIRole (REQUIP) 1 MG tablet Indications: Restless legs Take 1 tablet by mouth 3 times daily 270 tablet 1 05/09/2024 Active Start: 02-10-2023 rOPINIRole (RE QUIP) 0.5 MG tablet Start: 04-02-2021 take 1 [...] Start: 07-30-2020 take 2 tablets by mo [facility] once daily sertraline (ZOLOFT) 100 MG tablet Take 2 tablets by mouth daily Currently decreasing this medication 0 07/30/2020 Active Start: 07-30-2020 take 1 tablet by prabhjot once daily sertraline (ZOLOFT) 100 MG tablet Take 100 mg by mouth daily Currently decreasing this medication 0 07/30/2020 Active Start: 07-06-2019 take 2 tablets by mo [facility] once daily sertraline (ZOLOFT) 50 MG [...] Onset: 4 07-05-2019 Chronic Chronic kidney disease (17 sources) Chronic renal insufficiency; Translations: [Chronic kidney [...] 7 09-16-2017 Chronic Other non-traumatic joint disorders (5 sources) Charcot's joint, left ankle and foot; [...] back pain] Onset: 9 Episodic Thyroid disorders (9 sources) Thyroid nodule; Translations: [Nontoxic single thyroid nodule] Onset: 2 05-27-2022 Chronic Viral infection (1 source) Viral disease; Translations: [Viral infection, unspecified] Episodic Past or Other Problems Problem Classification Problem Date Documented Date Episodic/Chronic Bacterial infection; unspecified site (20 sources) Methicillin resistant Staphylococcus aureus infection; Translations: [Bacteremia due to Methicillin resistant Staphylococcus aureus] Resolved: 05-11-2020 08-18-2018 Episodic Deficiency and other anemia (8 sources) Anemia; Translations: [Anemia, unspecified] Onset: 2022 [...] of skin] Onset: 02-05-2018 08-03-2017 Episodic Other [employer] OPER[employer] infection and poliomyelitis (20 sources) Extradural [...] Test Name Value Interpretation Reference Range Facility CT FOOT LEFT WO CONTRASTon 0 05-10-2024 CT FOOT LEFT WO CONTRAST EXAMINATION: CT FOOT LEFT WO CONTRAST HISTORY: Charcot's joint of left foot. Charcot arthropathy with reconstruction 12 weeks ago. Midfoot Charcot arthropathy status post midfoot fusion. COMPARISON: Left foot x-rays from 04/27/[address] from 12/10/2023. TECHNIQUE: 2.5 mm thick axial images were obtained through the left foot and ankle without contrast. 2-D reformatted images were created in the coronal and sagittal planes. Dose reduction techniques were achieved by using automated exposure control and/or adjustment of mA and/or kV according to patient size and/or use of iterative reconstruction technique. FINDINGS: Extensive advanced changes of neuropathic joint disease are again identified throughout the midfoot with extensive bony fragmentation and debris with subluxation/dislocati on of multiple joints consistent with Charcot arthropathy. When compared to the prior CT, there has been interval surgery with placement of several screws. There is also a screw track in the distal tibia and a small area of lucency likely related to a screw track within the talar dome anteriorly. There is mild joint space narrowing with the tibiotalar joint more pronounced anteriorly with mild spurring. A screw extends from the posterior aspect of the calcaneus inferiorly through the posterior facet of the subtalar joint. There is partial osseous fusion across the posterior facet of the subtalar joint with suspected osseous fusion across approximately 30% of the posterior facet of the subtalar joint. There is also a screw which extends from the talus into the first metatarsal bone traversing what appears to be a portion of the medial cuneiform bone which is fragmented. The navicular bone is highly fragmented and difficult to confidently visualize in the region of the screw. There is no solid osseous fusion across the first tarsometatarsal joint. There are 2 additional screws which extend from the region of the talus into the base of the second and third metatarsal bones. There is marked irregularity and bony loss along the base of the second through fourth metatarsal bones and to a lesser extent base of the fifth metatarsal. There is likely bone graft material in the region of the midfoot which is difficult to differentiate from adjacent bony fragmentation. Additional screw tracks are present in the calcaneus and talus. There is a curvilinear foreign body within the soft tissues along the medial and plantar margin of the third metatarsal bone also seen on multiple prior x-rays. No new fracture is identified although an acute fracture may be difficult to identify superimposed upon the extensive fragmentation and changes of neuropathic joint disease. There is thickening of the Achilles tendon with at least moderate tendinopathy. There is a vdtbxjux-oz-xboiz plantar calcaneal spur. CT is not sensitive for evaluation of the tendinous and ligamentous structures of the ankle and foot. IMPRESSION: 1. Extensive changes of neuropathic joint disease/Charcot arthropathy are again identified throughout the midfoot with bony fragmentation and debris as well as bony loss in the metatarsal bases. 2. Interval surgery with placement of multiple screws traversing the first through third tarsometatarsal joints extending anteriorly from the talus. No solid osseous fusion is identified across the tarsometatarsal joints. There is extensive fragmentation of the navicular bone and cuneiform bones as well as the cuboid. 3. Surgical fusion of the posterior facet of the subtalar joint with a screw traversing the joint. There is partial fusion across the posterior facet of the subtalar joint estimated at approximately 30%. 4. Postsurgical change with surgical tracks in the distal tibia and talus. There is mild to moderate degenerative change of the tibiotalar joint more pronounced anteriorly. Interpreted by: Robin Mcarthur MD Signed by: Robin Mcarthur MD 05/10/24 Final result Normal [facility] Magnesiumon 05-10-2024 Magnesium [Mass/Vol] 2.2 mg/dL 1.6 - 2 .6 mg/dL [facility] Magnesium [Mass/Vol] 2.2 mg/dL Normal 1.6-2.6 [facility] Comment on above: Performed By: #### U RTPRT #### [facility] [place] [facility] [place] [address] Sales Developer: Placido Pierce MD #### BENJI SPENCER UA #### [facility] [address] [place] [address] Sales Developer: Emily George MD No Panel Informationon 05-10 [facility] Protein / creatinine ratio, urineon 05-10-2024 Creatinine (U) [Mass/Vol] 132.0 mg/dL 28.0 - 217.0 mg/dL [facility] Protein (U) [Mass/Vol] 9 mg/dL [facility] Comment on above: No normal range esta blished. Urine Total Protein Creatinine Ratio 0.07 [facility] Protein,Tot,[place] 2023 Creatinine [Mass/Vol] 132.0 mg/dL Normal 28.0-217.0 [facility] Comment on above: Performed By: #### U RTPRT #### [address] [id number] Sales Developer: Placido Pierce MD #### MG, RENP, UA #### [facility] [address] [place] [address] Sales Developer: Emily George MD Tot Prot. Conc. 9 mg/dL [facility] Comment on above: Result Comment: No n ormal range established. Performed By: #### U RTPRT #### [address] [id number] Sales Developer: Placido Pierce MD #### MG, RENP, UA #### [facility] [address] [place] [address] Sales Developer: Emily George MD TP/Cre Ratio 0.07 [facility] Comment on above: Performed By: #### U RTPRT #### [address] [id number] Sales Developer: Placido Pierce MD #### MG, RENP, UA #### [facility] [address] [place] [address] Sales Developer: Emily George MD Renal Function Panelon 05-10 Albumin [Mass/Vol] 4.2 g/dL 3.5 - 5.2 g/dL [facility] Anion gap [Moles/Vol] 15 mmol/L 9 - 17 mmol/L [facility] Calcium [Mass/Vol] 9.2 mg/dL 8.6 - 10. 4 mg/dL [facility] Chloride [Moles/Vol] 101 mmol/L 98 - 10 7 mmol/L [facility] CO2 [Moles/Vol] 25 mmol/L 20 - 31 mmol/L [facility] Creatinine [Mass/Vol] 1.3 mg/dL High 0.5 - 0.9 mg/dL [facility] Est, Sariah Sonwt Rate 52 Low - [facility] Comment on above: These results are not [...] following therapy that affects renal tubular secretion. Glucose [Mass/Vol] 141 mg/dL High 70 - 99 mg/dL [facility] Interpretation and review of laboratory results Abnormal [facility] Phosphate [Mass/Vol] 3.8 mg/dL 2.6 - 4 .5 mg/dL [facility] Potassium [Moles/Vol] 4.0 mmol/L 3.7 - 5.3 mmol/L [facility] Sodium [Moles/Vol] 141 mmol/L 135 - 144 mmol/L [facility] Urea nitrogen [Mass/Vol] 19 mg/dL 6 - 20 mg/dL [facility] Urea nitrogen/Creatinine [Mass ratio] 15 mg/mg 9 - 20 [facility] Albumin [Mass/Vol] 4.2 g/dL Normal 3.5-5.2 [facility] Comment on above: Performed By: #### U RTPRT #### [address] [address] Sales Developer: Placido Pierce MD #### MGMOREP, UA #### [facility] [address] [place], [place] [phone] Sales Developer: Emily George MD Anion gap [Moles/Vol] 15 mmol/L Normal 9-17 [facility] Comment on above: Performed By: #### U RTPRT #### [address] [address] Sales Developer: Placido Pierce MD #### MGMOREP, UA #### [facility] [address] [place], [place] [id number] Sales Developer: Emily George MD BUN/CRE Ratio 15 Normal 9-20 [facility] Comment on above: Performed By: #### U RTPRT #### [address] [address] Sales Developer: Placido Pierce MD #### MGMOREP, UA #### [facility] [address] [place], [place] [phone] Sales Developer: Emily George MD Calcium [Mass/Vol] 9.2 mg/dL Normal 8.6-10.4 [facility] Comment on above: Performed By: #### U RTPRT #### [address] [address] Sales Developer: Placido Pierce MD #### MG, RENP, UA #### [facility] [address] [place], [place] [phone] Sales Developer: Emily George MD Chloride [Moles/Vol] 101 mmol/L Normal 98-107 [facility] Comment on above: Performed By: #### U RTPRT #### [address] [id number] Sales Developer: Placido Pierce MD #### MG, RENP, UA #### [facility] [address] [place] [address] Sales Developer: Emily George MD CO2 [Moles/Vol] 25 mmol/L Normal 20-31 [facility] Comment on above: Performed By: #### U RTPRT #### [facility] [address] [place], [place] [phone] Sales Developer: Placido Pierce MD #### MG, RENP, UA #### [facility] [address] [place] [address] Sales Developer: Emily George MD Creatinine [Mass/Vol] 1.3 mg/dL High 0.5-0.9 [facility] Comment on above: Performed By: #### U RTPRT #### [facility] [address] [place], [place] [phone] Sales Developer: Placido Pierce MD #### MG, RENP, UA #### [facility] [address] [place] [address] Sales Developer: Emily George MD GFR/1.73 sq M.predicted among non-blacks MDRD (S/P/Bld) [Vol rate/Area] 52 mL/min/{1.73_m2} Low >60 [facility] Comment on above: Result Comment: These results [...] affects renal tubular secretion. Performed By: #### U RTPRT #### [facility] [address] [place], [place] [phone] Sales Developer: Placido Pierce MD #### MG, RENP, UA #### [facility] [address] [place], [place] [phone] Sales Developer: Emily George MD Glucose [Mass/Vol] 141 mg/dL High 70-99 [facility] Comment on above: Performed By: #### U RTPRT #### [id number] [place], [place] [phone] Sales Developer: Placido Pierce MD #### MG, RENP, UA #### [facility] [address] [place], [place] [phone] Sales Developer: Emily George MD Phosphorus, Inorg. 3.8 mg/dL Normal 2.6-4.5 [facility] Comment on above: Performed By: #### U RTPRT #### [address] [phone] Sales Developer: Placido Pierce MD #### MG, RENP, UA #### [facility] [address] [place], [place] [phone] Sales Developer: Emily George MD Potassium [Moles/Vol] 4.0 mmol/L Normal 3.7-5.3 [facility] Comment on above: Performed By: #### U RTPRT #### [address] [phone] Sales Developer: Placido Pierce MD #### MG, RENP, UA #### [facility] [address] [place], [place] [phone] Sales Developer: Emily George MD Sodium [Moles/Vol] 141 mmol/L Normal 135-144 [facility] Comment on above: Performed By: #### U RTPRT #### [address] [address] Sales Developer: Placido Pierce MD #### MG, RENP, UA #### [facility] [address] [place] [address] Sales Developer: Emily George MD Urea nitrogen [Mass/Vol] 19 mg/dL Normal 6-20 [facility] Comment on above: Performed By: #### U RTPRT #### [facility] [place] [address] [place], [place] [phone] Sales Developer: Placido Pierce MD #### MG, RENP, UA #### [facility] [address] [place], [place] [phone] Sales Developer: Emily George MD Urinalysison 05-10-2024 Bilirubin Ql (U) Negative NEGATIVE [facility] Clarity (U) Clear Clear [facility] Color (U) Yellow Yellow [facility] Comment [facility] Glucose Test strip (U) [Mass/Vol] Negative NEGATIVE mg/dL [facility] Hemoglobin Auto test strip Ql (U) Negative NEGATIVE [facility] Interpretation and review of laboratory results Abnormal [facility] Ketones (U) [Mass/Vol] Negative NEGATIVE mg/dL [facility] Leukocyte esterase Test strip Ql (U) Negative NEGATIVE [facility] Nitrite Ql (U) Negative NEGATIVE [facility] pH (U) 5.0 [pH] 5.0 - 8.0 [facility] Protein (U) [Mass/Vol] TRACE Abnormal NEGATIVE mg/dL [facility] Specific gravity (U) [Rel density] 1.020 1.005 - 1.030 [facility] Urobilinogen Qn (U) Normal 0.0 - 1. 0 EU/dL [facility] Urinalysis, Routineon 2023 Bilirubin, SemiQt,Ur Negative Normal NEG [facility] Comment on above: Performed By: #### U RTPRT #### [facility] [place] [address] [place], [place] [phone] Sales Developer: Placido Pierce MD #### MG, RENP, UA #### [facility] [address] [place] [address] Sales Developer: Emily George MD Blood, Urine Negative Normal NEG [facility] Comment on above: Performed By: #### U RTPRT #### [facility] [address] [place] [address] Sales Developer: Placido Pierce MD #### MG, RENP, UA #### [facility] [address] [place] [address] Sales Developer: Emily George MD Clarity (U) Clear Normal CLEAR [facility] Comment on above: Performed By: #### U RTPRT #### [address] [address] Sales Developer: Placido Pierce MD #### MG, RENP, UA #### [facility] [address] [place] [address] Sales Developer: Emily George MD Color (U) Yellow Normal YEL [facility] Comment on above: Performed By: #### U RTPRT #### [address] [address] Sales Developer: Placido Pierce MD #### MG, RENP, UA #### [facility] [address] [place] [address] Sales Developer: Emily George MD Comment Normal [facility] Comment on above: Performed By: #### U RTPRT #### [address] [address] Sales Developer: Placido Pierce MD #### MG, RENP, UA #### [facility] [address] [place] [address] Sales Developer: Emily George MD Glucose Ql (U) Negative Normal NEG [facility] Comment on above: Performed By: #### U RTPRT #### [address] [address] Sales Developer: Placido Pierce MD #### MG, RENP, UA #### [facility] [address] [place] [address] Sales Developer: Emily George MD Ketones Ql (U) Negative Normal NEG [facility] Comment on above: Performed By: #### U RTPRT #### [address] [address] Sales Developer: Placido Pierce MD #### MG, RENP, UA #### [facility] [address] [place] [address] Sales Developer: Emily George MD Leukocyte esterase Test strip Ql (U) Negative Normal NEG [facility] Comment on above: Performed By: #### U RTPRT #### [address] [address] Sales Developer: Placido Pierce MD #### MG, RENP, UA #### [facility] [address] [place] [address] Sales Developer: Emily George MD Nitrite,Ur Negative Normal NEG [facility] Comment on above: Performed By: #### U RTPRT #### [address] [address] Sales Developer: Placido Pierce MD #### MG, RENP, UA #### [facility] [address] [place] [address] Sales Developer: Emily George MD PH,Ur 5.0 Normal 5.0-8.0 [facility] Comment on above: Performed By: #### U RTPRT #### [address] [phone] Sales Developer: Placido Pierce MD #### MG, RENP, UA #### [facility] [address] [place] [address] Sales Developer: Emily George MD Protein Ql (U) TRACE Abnormal NEG [facility] Comment on above: Performed By: #### U RTPRT #### [address] [phone] Sales Developer: Placido Pierce MD #### MG, RENP, UA #### [facility] [address] [place] [address] Sales Developer: Emily George MD Spec. [place],Ur 1.020 Normal 1.005-1.030 [facility] Comment on above: Performed By: #### U RTPRT #### [address] [phone] Sales Developer: Placido Pierce MD #### MG, RENP, UA #### [facility] [address] [place] [address] Sales Developer: Emily George MD Urobilinogen,Ur Normal Normal 0.0-1.0 [facility] Comment on above: Performed By: #### U RTPRT #### [address] [id number] Sales Developer: Placido Pierce MD #### MG, RENP, UA #### [facility] [address] [place] [address] Sales Developer: Emily George MD Basic Metabolic Profon 05-02 Anion gap [Moles/Vol] 11 mmol/L Normal 9-17 [facility] Comment on above: Performed By: #### U RTPRT #### [address] [id number] Sales Developer: Placido Pierce MD #### MG, RENP, UA #### [facility] [address] [place], [place] [phone] Sales Developer: Emily George MD BUN/CRE Ratio 18 Normal 9-20 [facility] Comment on above: Performed By: #### U RTPRT #### [facility] [address] [place], [place] [phone] Sales Developer: Placido Pierce MD #### MG, RENP, UA #### [facility] [address] [place], [place] [phone] Sales Developer: Emily George MD Calcium [Mass/Vol] 9.1 mg/dL Normal 8.6-10.4 [facility] Comment on above: Performed By: #### U RTPRT #### [address] [id number] Sales Developer: Placido Pierce MD #### MG, RENP, UA #### [facility] [address] [place], [place] [phone] Sales Developer: Emily George MD Chloride [Moles/Vol] 103 mmol/L Normal 98-107 [facility] Comment on above: Performed By: #### U RTPRT #### [address] [address] Sales Developer: Placido Pierce MD #### MG, RENP, UA #### [facility] [address] [place], [place] [phone] Sales Developer: Emily George MD CO2 [Moles/Vol] 28 mmol/L Normal 20-31 [facility] Comment on above: Performed By: #### U RTPRT #### [address] [address] Sales Developer: Placido Pierce MD #### MG, RENP, UA #### [facility] [address] [place], [place] [phone] Sales Developer: Emily George MD Creatinine [Mass/Vol] 1.1 mg/dL High 0.5-0.9 [facility] Comment on above: Performed By: #### U RTPRT #### [address] [phone] Sales Developer: Placido Pierce MD #### MG, RENP, UA #### [facility] [address] [place], [place] [phone] Sales Developer: Emily George MD GFR/1.73 sq M.predicted among non-blacks MDRD (S/P/Bld) [Vol rate/Area] 64 mL/min/{1.73_m2} Normal >60 [facility] Comment on above: Result Comment: These results [...] affects renal tubular secretion. Performed By: #### U RTPRT #### [address] [id number] Sales Developer: Placido Pierce MD #### MG, RENP, UA #### [facility] [address] [place], [place] [phone] Sales Developer: Emily George MD Glucose [Mass/Vol] 122 mg/dL High 70-99 [facility] Comment on above: Performed By: #### U RTPRT #### [address] [address] Sales Developer: Placido Pierce MD #### MG, RENP, UA #### [facility] [address] [place], [place] [phone] Sales Developer: Emily George MD Potassium [Moles/Vol] 4.1 mmol/L Normal 3.7-5.3 [facility] Comment on above: Performed By: #### U RTPRT #### [address] [place] [address] Sales Developer: Placido Pierce MD #### MG, RENP, UA #### [facility] [address] [place], [place] [phone] Sales Developer: Emily George MD Sodium [Moles/Vol] 142 mmol/L Normal 135-144 [facility] Comment on above: Performed By: #### U RTPRT #### [address] [phone] Sales Developer: Placido Pierce MD #### MG, RENP, UA #### [facility] [address] [place], [place] [phone] Sales Developer: Emily George MD Urea nitrogen [Mass/Vol] 20 mg/dL Normal 6-20 [facility] Comment on above: Performed By: #### U RTPRT #### [address] [phone] Sales Developer: Placido Pierce MD #### MG, RENP, UA #### [facility] [address] [place], [place] [phone] Sales Developer: Emily George MD Hemoglobin A1Con 05-02-2024 Glucose [Mass/Vol] 105 mg/dL Normal [facility] Comment on above: Result Comment: The ADA and AACC recommend providing the estimated average glucose result to permit better patient understanding of their HBA1c result. Performed By: #### U RTPRT #### [address] [phone] Sales Developer: Placido Pierce MD #### MG, RENP, UA #### [facility] [address] [place], [place] [phone] Sales Developer: Emily George MD HbA1c (Bld) [Mass fraction] 5.3 % Normal 4.0-6.0 [facility] Comment on above: Performed By: #### U RTPRT #### [address] [phone] Sales Developer: Placido Pierce MD #### MG, RENP, UA #### [facility] [address] [place] [address] Sales Developer: Emily George MD Lipid Profileon 05-02-2024 Cholesterol [Mass/Vol] 170 mg/dL Normal 0-199 [facility] Comment on above: Result Comment: Cholesterol Guidelines: <200 Desirable 200-240 Borderline >240 Undesirable Performed By: #### U RTPRT #### [address] [phone] Sales Developer: Placido Pierce MD #### MG, RENP, UA #### [facility] [address] [place] [address] Sales Developer: Emily George MD Cholesterol in HDL [Mass/Vol] 28 mg/dL Low >40 [facility] Comment on above: Result Comment: HDL Guidelines: <40 Undesirable 40-59 Borderline >59 Desirable Performed By: #### U RTPRT #### [address] [phone] Sales Developer: Placido Pierce MD #### MG, RENP, UA #### [facility] [address] [place] [address] Sales Developer: Emily George MD Cholesterol in LDL [Mass/Vol] 77 mg/dL Normal 0-100 [facility] Comment on above: Result Comment: LDL Guidelines: <100 Desirable 100-129 Near to/above Desirable 130-159 Borderline >159 Undesirable Direct (measured) LDL and calculated LDL are not interchangeable tests. Performed By: #### U RTPRT #### [facility] [address] [place] [address] Sales Developer: Placido Pierce MD #### BENJI SPENCER, UA #### [facility] [address] [place] [address] Sales Developer: Emily George MD Cholesterol in VLDL [Mass/Vol] 65 mg/dL Normal [facility] Comment on above: Performed By: #### U RTPRT #### [facility] [address] [place] [address] Sales Developer: Placido Pierce MD #### BENJI SPENCER, UA #### [facility] [address] [place] [address] Sales Developer: Emily George MD Cholesterol.total/Cho lesterol in HDL [Mass ratio] 6.0 {ratio} Normal [facility] Comment on above: Performed By: #### U RTPRT #### [facility] [address] [place] [address] Sales Developer: Placido Pierce MD #### BENJI SPENCER, UA #### [facility] [address] [place] [address] Sales Developer: Emily George MD Triglyceride [Mass/Vol] 323 mg/dL High <150 [facility] Comment on above: Result Comment: Triglyceride Guidelines: <150 Desirable 150-199 Borderline 200-499 High >499 Very high Based on AHA Guidelines for fasting triglyceride, July 2012. Performed By: #### U RTPRT #### [facility] [address] [place] [address] Sales Developer: Placido Pierce MD #### MGMOREP, UA #### [facility] [address] [place] [address] Sales Developer: Emily George MD Ananda 02-15-2024 L Specimen: [id number] Received: 02/16/24 Status: ARLEN So Num: [id number] Spec Type: Surgical Subm Dr: Frances Harris DPM, [place] Tissues: A Soft Tissue/Surgical Margin-Other than Tumor,Mass,Lip or Becka (LT MID FOOT CH Procedures: HE/2, Gross/Micro L4 Age/ Patient Sex Location Account Attending Physician Gaspar,Amy M 43/F [facility] [id number] Frances Harris DPM, MS SPEC NUM: [id number] RECD: 02/16/24 STATUS: ARLEN SO NUM: [id number] MAYTE: 02/15/24 [facility] DR: Frances Harris DPM, MS ENTERED: 02/16/24 [facility] DR: Darwin Vergara SPEC TYPE: Surgical DEPT: DEANA YEAGER ORDERED: [...] sections reveal firm, yellow spongy bone matrix. Manager Supply Chain Planning sections are submitted following decalcification in A1?A2. Clinical history: varus deformity left ankle, charcot join left ankle and foot. CPT Codes 86273 -------- -------- Specimen: [id number] Received: 02/16/24 Status: ARLEN So Num: [id number] Spec Type: Surgical Subm Dr: Frances Harris,DPM, MS Tissues: A Soft Tissue/Surgical Margin-Other than Tumor,Mass,Lip or Becka (LT MID FOOT CH Procedures: HE/2, Gross/Micro L4 -------- Patient: Celina Gaspar [id number] (Continued) -------- Signed (signature on file) Juan José Yu MD 02/17/24 1549 Normal [facility] CBC with Diffon 01-29-2024 Abs. Basophil 0.04 k/uL Normal 0.00-0.20 [facility] Comment on above: Performed By: #### U RTPRT #### [employer] [address] [place] [address] Sales Developer: Placido Pierce MD #### BENJI SPENCER UA #### [facility] [address] [place] [address] Sales Developer: Emily George MD Abs.Imm.Granulocyte 0.12 k/uL Normal 0.00-0.30 [facility] Comment on above: Performed By: #### U RTPRT #### [facility] [address] [place], [place] [phone] Sales Developer: Placido Pierce MD #### MG, RENP, UA #### [facility] [address] [place], [place] [phone] Sales Developer: Emily George MD Abs.Neutrophil (Seg) 3.26 k/uL Normal 2.5-7.0 [facility] Comment on above: Performed By: #### U RTPRT #### [facility] [address] [place], [place] [phone] Sales Developer: Placido Pierce MD #### MG, RENP, UA #### [facility] [address] [place], [place] 8200490 Sales Developer: Emily George MD Basophils/100 WBC (Bld) 1 % Normal 0-2 [facility] Comment on above: Performed By: #### U RTPRT #### [facility] [address] [place], [place] 5378108 Sales Developer: Placido Pierce MD #### MG, RENP, UA #### [facility] [address] [place], [place] [phone] Sales Developer: Emily George MD Eosinophils (Bld) [#/Vol] 0.06 10*3/uL Normal 0.00-0.40 [facility] Comment on above: Performed By: #### U RTPRT #### [facility] [address] [place], [place] [phone] Sales Developer: Placido Pierce MD #### MG, RENP, UA #### [facility] [address] [place], [place] [phone] Sales Developer: Emily George MD Eosinophils/100 WBC (Bld) 1 % Normal 0-5 [facility] Comment on above: Performed By: #### U RTPRT #### [facility] [address] [place], [place] 5179408 Sales Developer: Placido Pierce MD #### MG, MOREP, UA #### [facility] [address] [place], [place] 1312690 Sales Developer: Emily George MD Erythrocyte distribution width (RBC) [Ratio] 15.2 % Normal 12.1-15.2 [facility] Comment on above: Performed By: #### U RTPRT #### [facility] [address] [place], [place] 9188508 Sales Developer: Placido Pierce MD #### MG, MOREP, UA #### [facility] [address] [place] [address] Sales Developer: Emily George MD Hematocrit (Bld) [Volume fraction] 35.5 % Low 36.0-46.0 [facility] Comment on above: Performed By: #### U RTPRT #### [facility] [address] [place], [place] [phone] Sales Developer: Placido Pierce MD #### MG, MOREP, UA #### [facility] [address] [place], [place] 8887090 Sales Developer: Emily George MD Hemoglobin (Bld) [Mass/Vol] 11.9 g/dL Low 12.0-16.0 [facility] Comment on above: Performed By: #### U RTPRT #### [facility] [address] [place], [place] 0377908 Sales Developer: Placido Pierce MD #### MG, RENP, UA #### [facility] [address] [place], [place] 2375390 Sales Developer: Emily George MD Immature granulocytes/100 WBC (Bld) 2 % Normal 0-5 [facility] Comment on above: Performed By: #### U RTPRT #### [facility] [address] [place], [place] 5791808 Sales Developer: Placido Pierce MD #### MG, BENJI, UA #### [facility] [address] [place], [place] [phone] Sales Developer: Emily George MD Lymphocytes (Bld) [#/Vol] 1.66 10*3/uL Normal 1.00-4.80 [facility] Comment on above: Performed By: #### U RTPRT #### [address] [phone] Sales Developer: Placido Pierce MD #### MGBENJI, UA #### [facility] [address] [place] [address] Sales Developer: Emily George MD Lymphocytes/100 WBC (Bld) 30 % Normal 15-40 [facility] Comment on above: Performed By: #### U RTPRT #### [address] [phone] Sales Developer: Placido Pierce MD #### MGBENJI, UA #### [facility] [address] [place], [place] [phone] Sales Developer: Emily George MD MCH (RBC) [Entitic mass] 28.4 pg Normal 26.0-34.0 [facility] Comment on above: Performed By: #### U RTPRT #### [facility] [address] [place], [place] 0519808 Sales Developer: Placido Pierce MD #### MG, MOREP, UA #### [facility] [address] [place], [place] 7108090 Sales Developer: Emily George MD MCHC (RBC) [Mass/Vol] 33.5 g/dL Normal 31.0-37.0 [facility] Comment on above: Performed By: #### U RTPRT #### [address] [place], [place] 9495308 Sales Developer: Placido Pierce MD #### MG, RENP, UA #### [facility] [address] [place], [place] 0307590 Sales Developer: Emily George MD MCV (RBC) [Entitic vol] 84.7 fL Normal 80.0-100.0 [facility] Comment on above: Performed By: #### U RTPRT #### [address] [phone] Sales Developer: Placido Pierce MD #### MG, MOREP, UA #### [facility] [address] [place] [address] ( Sales Developer: Emily George MD Monocytes (Bld) [#/Vol] 0.43 10*3/uL Normal 0.00-1.00 [facility] Comment on above: Performed By: #### U RTPRT #### [place] [address] Sales Developer: Placido Pierce MD #### MG, MOREP, UA #### [facility] [address] [place], [place] 3032090 Sales Developer: Emily George MD Monocytes/100 WBC (Bld) 8 % Normal 4-8 [facility] Comment on above: Performed By: #### U RTPRT #### [address] [phone] Sales Developer: Placido Pierce MD #### MG, RENP, UA #### [facility] [address] [place], [place] [phone] Sales Developer: Emily George MD Neutrophil (Seg) 58 % Normal 47-75 [facility] Comment on above: Performed By: #### U RTPRT #### [facility] [address] [place] [address] Sales Developer: Placido Pierce MD #### MG, MOREP, UA #### [facility] [address] [place], [place] [phone] Sales Developer: Emily George MD Platelet mean volume (Bld) [Entitic vol] 10.8 fL Normal 6.0-12.0 [facility] Comment on above: Performed By: #### U RTPRT #### [address] [phone] Sales Developer: Placido Pierce MD #### MG, MOREP, UA #### [facility] [address] [place], [place] 9950090 Sales Developer: Emily George MD Platelets (Bld) [#/Vol] 151 10*3/uL Normal 140-450 [facility] Comment on above: Performed By: #### U RTPRT #### [address] [address] Sales Developer: Placido Pierce MD #### MGMOREP, UA #### [facility] [address] [place], [place] [phone] Sales Developer: Emily George MD RBC (Bld) [#/Vol] 4.19 10*6/uL Normal 4.00-5.20 [facility] Comment on above: Performed By: #### U RTPRT #### [address] [phone] Sales Developer: Placido Pierce MD #### MG, RENP, UA #### [facility] [address] [place], [place] [phone] Sales Developer: Emily George MD WBC (Bld) [#/Vol] 5.6 10*3/uL Normal 3.5-11.0 [facility] Comment on above: Performed By: #### U RTPRT #### [address] [address] Sales Developer: Placido Pierce MD #### MG, RENP, UA #### [facility] [address] [place], [place] [phone] Sales Developer: Emily George MD Comp Metabolic Profon 2023 Albumin [Mass/Vol] 4.4 g/dL Normal 3.5-5.2 [facility] Comment on above: Performed By: #### U RTPRT #### [address] [address] Sales Developer: Placido Pierce MD #### MG, RENP, UA #### [facility] [address] [place] [phone] ( Sales Developer: Emily George MD Alkaline Phos 95 U/L Normal 35-104 [facility] Comment on above: Performed By: #### U RTPRT #### [address] [address] Sales Developer: Placido Pierce MD #### MG, RENP, UA #### [facility] [address] [place] [phone] Sales Developer: Emily George MD ALT [Catalytic activity/Vol] 19 U/L Normal 5-33 [facility] Comment on above: Performed By: #### U RTPRT #### [address] [address] Sales Developer: Placido Pierce MD #### MG, RENP, UA #### [facility] [address] [place], [place] 1800090 Sales Developer: Emily George MD Anion gap [Moles/Vol] 16 mmol/L Normal 9-17 [facility] Comment on above: Performed By: #### U RTPRT #### [facility] [address] [place] [address] Sales Developer: Placido Pierce MD #### MG, RENP, UA #### [facility] [address] [place] [address] Sales Developer: Emily George MD AST [Catalytic activity/Vol] 22 U/L Normal <32 [facility] Comment on above: Performed By: #### U RTPRT #### [facility] [address] [place] [address] Sales Developer: Placido Pierce MD #### MG, RENP, UA #### [facility] [address] [place], [place] 5225190 Sales Developer: Emily George MD Bilirubin [Mass/Vol] 0.5 mg/dL Normal 0.3-1.2 [facility] Comment on above: Performed By: #### U RTPRT #### [facility] [address] [place] [address] Sales Developer: Placido Pierce MD #### MG, RENP, UA #### [facility] [address] [place], [place] 1419590 Sales Developer: Emily George MD BUN/CRE Ratio 21 High 9-20 [facility] Comment on above: Performed By: #### U RTPRT #### [facility] [address] [place] [address] Sales Developer: Placido Pierce MD #### MG, RENP, UA #### [facility] [address] [place] [address] Sales Developer: Emily George MD Calcium [Mass/Vol] 9.3 mg/dL Normal 8.6-10.4 [facility] Comment on above: Performed By: #### U RTPRT #### [facility] [address] [place] [address] Sales Developer: Placido Pierce MD #### MG, RENP, UA #### [facility] [address] [place], [place] [phone] Sales Developer: Emily George MD Chloride [Moles/Vol] 99 mmol/L Normal 98-107 [facility] Comment on above: Performed By: #### U RTPRT #### [address] [place] [address] Sales Developer: Placido Pierce MD #### MG, RENP, UA #### [facility] [address] [place], [place] 5387390 Sales Developer: Emily George MD CO2 [Moles/Vol] 21 mmol/L Normal 20-31 [facility] Comment on above: Performed By: #### U RTPRT #### [facility] [address] [place] [address] Sales Developer: Placido Pierce MD #### MG, RENP, UA #### [facility] [address] [place], [place] 1408890 Sales Developer: Emily George MD Creatinine [Mass/Vol] 1.2 mg/dL High 0.5-0.9 [facility] Comment on above: Performed By: #### U RTPRT #### [facility] [address] [place] [address] Sales Developer: Placido Pierce MD #### MG, RENP, UA #### [facility] [address] [place], [place] [phone] Sales Developer: Emily George MD GFR/1.73 sq M.predicted among non-blacks MDRD (S/P/Bld) [Vol rate/Area] 57 mL/min/{1.73_m2} Low >60 [facility] Comment on above: Result Comment: These results [...] affects renal tubular secretion. Performed By: #### U RTPRT #### [address] [address] Sales Developer: Placido Pierce MD #### MG, RENP, UA #### [facility] [address] [place], [place] [phone] Sales Developer: Emily George MD Glucose [Mass/Vol] 152 mg/dL High 70-99 [facility] Comment on above: Performed By: #### U RTPRT #### [address] [address] Sales Developer: Placido Pierce MD #### MG, RENP, UA #### [facility] [address] [place] [address] Sales Developer: Emily George MD Potassium [Moles/Vol] 3.6 mmol/L Low 3.7-5.3 [facility] Comment on above: Performed By: #### U RTPRT #### [address] [address] Sales Developer: Placido Pierce MD #### MG, RENP, UA #### [facility] [address] [place] [address] Sales Developer: Emily George MD Protein [Mass/Vol] 7.5 g/dL Normal 6.4-8.3 [facility] Comment on above: Performed By: #### U RTPRT #### [address] [phone] Sales Developer: Placido Pierce MD #### MG, RENP, UA #### [facility] [address] [place], [place] 3325190 Sales Developer: Emily George MD Sodium [Moles/Vol] 136 mmol/L Normal 135-144 [facility] Comment on above: Performed By: #### U RTPRT #### [facility] [address] [place], [place] 4517308 Sales Developer: Placido Pierce MD #### MG, RENP, UA #### [facility] [address] [place], [place] [phone] Sales Developer: Emily George MD Urea nitrogen [Mass/Vol] 25 mg/dL High 6-20 [facility] Comment on above: Performed By: #### U RTPRT #### [address] [place], [place] 1709908 Sales Developer: Placido Pierce MD #### MG, RENP, UA #### [facility] [address] [place], [place] [phone] Sales Developer: Emily George MD Hemoglobin A1Con 01-29-2024 Glucose [Mass/Vol] 123 mg/dL Normal [facility] Comment on above: Result Comment: The ADA and AACC recommend providing the estimated average glucose result to permit better patient understanding of their HBA1c result. Performed By: #### U RTPRT #### [facility] [address] [place], [place] [id number] Sales Developer: Placido Pierce MD #### MG, RENP, UA #### [facility] [address] [place], [place] [phone] Sales Developer: Emily George MD HbA1c (Bld) [Mass fraction] 5.9 % Normal 4.0-6.0 [facility] Comment on above: Performed By: #### U RTPRT #### [facility] [address] [place] [address] Sales Developer: Placido Pierce MD #### MG, RENP, UA #### [facility] [address] [place], [place] [phone] Sales Developer: Emily George MD LDL Chol, Directon LDL Chol, Direct 114 mg/dL Normal [facility] Comment on above: Performed By: #### U RTPRT #### [facility] [address] [place] [address] Sales Developer: Placido Pierce MD #### MG, RENP, UA #### [facility] [address] [place], [place] [phone] Sales Developer: Emily George MD Lipid Profileon 01-29-2024 Cholesterol [Mass/Vol] 190 mg/dL Normal 0-199 [facility] Comment on above: Result Comment: Cholesterol Guidelines: <200 Desirable 200-240 Borderline >240 Undesirable Performed By: #### U RTPRT #### [address] [address] Sales Developer: Placido Pierce MD #### MG, RENP, UA #### [facility] [address] [place], [place] [phone] Sales Developer: Emily George MD Cholesterol in HDL [Mass/Vol] 30 mg/dL Low >40 [facility] Comment on above: Result Comment: HDL Guidelines: <40 Undesirable 40-59 Borderline >59 Desirable Performed By: #### U RTPRT #### [facility] [address] [place] [address] Sales Developer: Placido Pierce MD #### MG, RENP, UA #### [facility] [address] [place], [place] [phone] Sales Developer: Emily George MD Cholesterol,LDL Can not be calculated Normal 0-100 [facility] Comment on above: Result Comment: LDL Guidelines: <100 Desirable 100-129 Near to/above Desirable 130-159 Borderline >159 Undesirable Direct (measured) LDL and calculated LDL are not interchangeable tests. Performed By: #### U RTPRT #### [address] [address] Sales Developer: Placido Pierce MD #### BENJI SPENCER, UA #### [facility] [address] [place], [place] [phone] Sales Developer: Emily George MD Cholesterol,VLDL Can not be calculated Normal [facility] Comment on above: Performed By: #### U RTPRT #### [address] [address] Sales Developer: Placido Pierce MD #### BENJI SPENCER, UA #### [facility] [address] [place], [place] [phone] Sales Developer: Emily George MD Cholesterol.total/Cho lesterol in HDL [Mass ratio] 6.0 {ratio} Normal [facility] Comment on above: Performed By: #### U RTPRT #### [address] [address] Sales Developer: Placido Pierce MD #### BENJI SPENCER, UA #### [facility] [address] [place], [place] [phone] Sales Developer: Emily George MD Triglyceride [Mass/Vol] 443 mg/dL High <150 [facility] Comment on above: Result Comment: Triglyceride Guidelines: <150 Desirable 150-199 Borderline 200-499 High >499 Very high Based on AHA Guidelines for fasting triglyceride, July 2012. Performed By: #### U RTPRT #### [address] [address] Sales Developer: Placido Pierce MD #### BENJI SPENCER, UA #### [facility] [address] [place], [place] [phone] Sales Developer: Emily George MD Patient fasting?on 4 Patient fasting? YES Normal [facility] Comment on above: Performed By: #### U RTPRT #### [facility] [address] [place], [place] [phone] Sales Developer: Placido Pierce MD #### MG, MOREP, UA #### [facility] [address] [place], [place] [phone] Sales Developer: Emily George MD TSH w/reflex to FT4on 2023 Thyroid Stim. Horm. 1.77 uIU/mL Normal 0.30-5.00 [facility] Comment on above: Performed By: #### U RTPRT #### [address] [phone] Sales Developer: Placido Pierce MD #### MG, RENP, UA #### [facility] [address] [place], [place] [phone] Sales Developer: Emily George MD XR WRIST RIGHT (MIN [...] result Normal [facility] Lipid Panelon 06-15-2023 Interpretation and review of laboratory results Abnormal [facility] Lipid Profileon 06-15-2023 Cholesterol [Mass/Vol] 174 mg/dL Normal <200 [facility] Comment on above: Cholesterol Guidelines: <200 Desirable 200-240 Borderline >240 Undesirable Result Comment: Cholesterol Guidelines: <200 Desirable 200-240 Borderline >240 Undesirable Performed By: #### U RTPRT #### [id number] [place], [place] [phone] Sales Developer: Placido Pierce MD #### BENJI SPENCER, UA #### [facility] [address] [place], [place] [phone] Sales Developer: Emily George MD Cholesterol in HDL [Mass/Vol] 30 mg/dL Low >40 [facility] Comment on above: HDL Guidelines: <40 Undesirable 40-59 Borderline >59 Desirable Result Comment: HDL Guidelines: <40 Undesirable 40-59 Borderline >59 Desirable Performed By: #### U RTPRT #### [address] [phone] Sales Developer: Placido Pierce MD #### BENJI SPENCER, UA #### [facility] [address] [place], [place] [phone] Sales Developer: Emily George MD Cholesterol in LDL [Mass/Vol] 77 mg/dL Normal 0-130 [facility] Comment on above: LDL Guidelines: <100 Desirable 100-129 Near to/above Desirable 130-159 Borderline >159 Undesirable Direct (measured) LDL and calculated LDL are not interchangeable tests. Result Comment: LDL Guidelines: <100 Desirable 100-129 Near to/above Desirable 130-159 Borderline >159 Undesirable Direct (measured) LDL and calculated LDL are not interchangeable tests. Performed By: #### U RTPRT #### [address] [phone] Sales Developer: Placido Pierce MD #### BENJI SPENCER, UA #### [facility] [address] [place] [address] Sales Developer: Emily George MD Cholesterol.total/Cho lesterol in HDL [Mass ratio] 5.8 {ratio} High <5 [facility] Comment on above: Performed By: #### U RTPRT #### [facility] [address] [place] [address] Sales Developer: Placido Pierce MD #### BENJI SPENCER UA #### [facility] [address] [place], [place] [phone] Sales Developer: Emily George MD Triglyceride [Mass/Vol] 334 mg/dL High <150 [facility] Comment on above: Triglyceride Guidelines: <150 Desirable 150-199 Borderline 200-499 High >499 Very high Based on AHA Guidelines for fasting triglyceride, July 2012. Result Comment: Triglyceride Guidelines: <150 Desirable 150-199 Borderline 200-499 High >499 Very high Based on AHA Guidelines for fasting triglyceride, July 2012. Performed By: #### U RTPRT #### [facility] [address] [place] [address] Sales Developer: Placido Pierce MD #### BENJI SPENCER UA #### [facility] [address] [place], [place] [phone] Sales Developer: Emily George MD US THYROIDon 06-15-2023 US [...] result Normal [facility] PTH, Intacton 05-17-2023 PTH, Intact 47.1 pg/mL Normal 14.0-72.0 [facility] Comment on above: Result Comment: SAMP LES FROM PATIENTS ROUTINELY RECEIVING HIGH DOSE BIOTIN THERAPY MAY SHOW FALSELY DEPRESSED RESULTS. ADDITIONAL INFORMATION MAY BE REQUIRED FOR DIAGNOSIS. Performed By: #### P THNCA, VD25, URTPRT #### [address] [phone] Sales Developer: Placido Pierce MD #### RENP #### [facility] [address] [place], [place] [phone] Sales Developer: Emily George MD Protein,Tot,[place] 2022 Creatinine [Mass/Vol] 146.1 mg/dL Normal 28.0-217.0 [facility] Comment on above: Performed By: #### U RTPRT #### [address] [phone] Sales Developer: Placido Pierce MD #### BENJI SPENCER, UA #### [facility] [address] [place], [place] [phone] Sales Developer: Emily George MD Tot Prot. Conc. 10 mg/dL Normal [facility] Comment on above: Result Comment: No n ormal range established. Performed By: #### U RTPRT #### [address] [id number] Sales Developer: Placido Pierce MD #### MGBENJI, UA #### [facility] [address] [place], [place] [phone] Sales Developer: Emily George MD TP/Cre Ratio 0.07 Normal 0.00-0.20 [facility] Comment on above: Performed By: #### U RTPRT #### [address] [phone] Sales Developer: Placido Pierce MD #### MG RENP, UA #### [facility] [address] [place], [place] [phone] Sales Developer: Emily George MD Renal Function Panelon 05-17 Albumin [Mass/Vol] 4.1 g/dL Normal 3.5-5.2 [facility] Comment on above: Performed By: #### P THNCA, VD25, URTPRT #### [address] [place], [place] 6495808 Sales Developer: Placido Pierce MD #### RENP #### [facility] [address] [place], [place] [phone] Sales Developer: Emily George MD Anion gap [Moles/Vol] 7 mmol/L Low 9-17 [facility] Comment on above: Performed By: #### P THNCA, VD25, URTPRT #### [address] [phone] Sales Developer: Placido Pierce MD #### RENP #### [facility] [address] [place], [place] [phone] Sales Developer: Emily George MD BUN/CRE Ratio 15 Normal 9-20 [facility] Comment on above: Performed By: #### P THNCA, VD25, URTPRT #### [address] [address] Sales Developer: Placido Pierce MD #### RENP #### [facility] [address] [place], [place] [phone] Sales Developer: Emily George MD Calcium [Mass/Vol] 9.5 mg/dL Normal 8.6-10.4 [facility] Comment on above: Performed By: #### P THNCA, VD25, URTPRT #### [address] [phone] Sales Developer: Placido Pierce MD #### RENP #### [facility] [address] [place], [place] [phone] Sales Developer: Emily George MD Chloride [Moles/Vol] 101 mmol/L Normal 98-107 [facility] Comment on above: Performed By: #### P THNCA, VD25, URTPRT #### [address] [phone] Sales Developer: Placido Pierce MD #### RENP #### [facility] [address] [place], [place] [phone] Sales Developer: Emily George MD CO2 [Moles/Vol] 29 mmol/L Normal 20-31 [facility] Comment on above: Performed By: #### P BIBIA, VD25, URTPRT #### [address] [phone] Sales Developer: Placido Pierce MD #### RENP #### [facility] [address] [place], [place] [phone] Sales Developer: Emily George MD Creatinine [Mass/Vol] 1.1 mg/dL High 0.5-0.9 [facility] Comment on above: Performed By: #### P THNCA, VD25, URTPRT #### [address] [phone] Sales Developer: Placido Pierce MD #### RENP #### [facility] [address] [place], [place] [phone] Sales Developer: Emily George MD GFR/1.73 sq M.predicted among non-blacks MDRD (S/P/Bld) [Vol rate/Area] mL/min/{1.73_m2} Normal >60 [facility] Comment on above: Result Comment: These results [...] affects renal tubular secretion. Performed By: #### P THNCA, VD25, URTPRT #### [address] [phone] Sales Developer: Placido Pierce MD #### RENP #### [facility] [address] [place], [place] [phone] Sales Developer: Emily George MD Glucose [Mass/Vol] 105 mg/dL High 70-99 [facility] Comment on above: Performed By: #### P THEMILYA, VD25, URTPRT #### [address] [phone] Sales Developer: Placido Pierce MD #### RENP #### [facility] [address] [place], [place] [phone] Sales Developer: Emily George MD Phosphorus, Inorg. 3.0 mg/dL Normal 2.6-4.5 [facility] Comment on above: Performed By: #### P BIBIA, VD25, URTPRT #### [address] [phone] Sales Developer: Placido Pierce MD #### RENP #### [facility] [address] [place], [place] [phone] Sales Developer: Emily George MD Potassium [Moles/Vol] 4.3 mmol/L Normal 3.7-5.3 [facility] Comment on above: Performed By: #### P THNCA, VD25, URTPRT #### [address] [phone] Sales Developer: Placido Pierce MD #### RENP #### [facility] [address] [place], [place] [phone] Sales Developer: Emily George MD Sodium [Moles/Vol] 137 mmol/L Normal 135-144 [facility] Comment on above: Performed By: #### P THEMILYA, VD25, URTPRT #### [facility] [address] [place], [place] [phone] Sales Developer: Placido Pierce MD #### RENP #### [facility] [address] [facility] [place], [place] [phone] Sales Developer: Emily George MD Urea nitrogen [Mass/Vol] 17 mg/dL Normal 6-20 [facility] Comment on above: Performed By: #### P FELIPE, VD25, URTPRT #### [address] [place], [place] 8061908 Sales Developer: Placido Pierce MD #### RENP #### [facility] [address] [place], [place] [phone] Sales Developer: Emily George MD Vitamin D 25 OHon 05-17-2023 Vitamin D 25 [place] 53.1 ng/mL Normal >29.9 [facility] Comment on above: Result Comment: Reference Range: Vitamin D status Range Deficiency <20 ng/mL Mild Deficiency 20-30 ng/mL Sufficiency 30-100 ng/mL Toxicity >100 ng/mL Performed By: #### P FELIPE, VD25, URTPRT #### [address] [phone] Sales Developer: Placido Pierce MD #### RENP #### [facility] [address] [facility] [address] Sales Developer: Emily George MD XR ORTHO FOOT LEFTon 023 XR [...] ThuMarch 04, 2023 4:22:25 PM EDT Normal [facility] Comment on above: Order Comment: Injur y/Trauma or Illness?:Illness/Other How long have you had these symptoms (acute/chronic)?:Chronic Reason for exam?:Left foot charcot History of cancer?:Unknown Surgeries, chemotherapy, or radiation?:Unknown Type of Exam?:Initial Additional signs and symptoms?:Left foot charcot BUN & Creatinineon Creatinine [Mass/Vol] 1.08 mg/dL High 0.50 - 0.90 mg/dL [facility] [employer] GFR/1.73 sq M.predicted MDRD (S/P/Bld) [Vol rate/Area] - [facility] Comment on above: These results are not [...] 21 mg/dL High 6 - 20 mg/dL [employer] CBC with Auto Differentialon 02-05-2023 Absolute Eos # 0.10 [facility] [employer] Absolute Lymph # 1.70 [facility] [employer] Absolute Braxton # 0.50 [facility] [employer] Basophils (Bld) [#/Vol] 0.00 10*3/uL [facility] [employer] Basophils/100 WBC (Bld) 1 % 0 - 2 % [facility] Differential Type [facility] Eosinophils/100 WBC (Bld) 1 % 0 - 5 % [facility] Hematocrit (Bld) [Volume fraction] 36.2 % 36 - 46 % [facility] Hemoglobin (Bld) [Mass/Vol] 12.2 g/dL 12.0 - 16.0 g/dL [facility] Interpretation and review of laboratory results Abnormal [facility] Lymphocytes/100 WBC (Bld) 23 % 15 - 40 % [facility] MCH (RBC) [Entitic mass] 28.7 pg 26 - 34 pg [facility] MCHC (RBC) [Mass/Vol] 33.7 g/dL 31 - 37 g/dL B [facility] MCV (RBC) [Entitic vol] 85.3 fL 80 - 100 fL [facility] Monocytes/100 WBC (Bld) 7 % 4 - 8 % [facility] Platelet distribution width (Bld) [Ratio] 18.1 % High 12.1 - 15.2 % [facility] Platelets (Bld) [#/Vol] 150 10*3/uL [facility] RBC (Bld) [#/Vol] 4.25 10*6/uL 4.0 - 5.2 m/uL [facility] Segmented neutrophils/100 WBC (Bld) 68 % 47 - 75 % [facility] Segs Absolute 5.30 [facility] WBC (Bld) [#/Vol] 7.6 10*3/uL [facility] Chlorideon 02-05-2023 Chloride [Moles/Vol] 99 mmol/L 98 - 10 7 mmol/L [facility] Glucose, Randomon 02-05-2023 Glucose [Mass/Vol] 107 mg/dL High 70 - 99 mg/dL [facility] No Panel Informationon 02-05 Interpretation and review of laboratory results Abnormal [facility] Potassiumon 02-05-2023 Potassium [Moles/Vol] 4.6 mmol/L 3.7 - 5.3 mmol/L [facility] Sodiumon 02-05-2023 Sodium [Moles/Vol] 134 mmol/L Low 135 - 144 mmol/L [facility] Wet Prep, Genitalon 02-06-20 Interpretation and review of laboratory results Abnormal [facility] Microorganism or agent identified Nom (Unsp spec) FEW WBC Abnormal [facility] [employer] [facility] Microorganism or agent identified Nom (Unsp spec) MODERATE EPITHELIAL CELLS Abnormal [facility] [facility] Microorganism or agent identified Nom (Unsp spec) MODERATE BACTERIA Abnormal [employer] Microorganism or agent identified Nom (Unsp spec) NO TRICHOMONAS SEEN [facility] [facility] Microorganism or agent identified Nom (Unsp spec) NO FUNGAL ELEMENTS SEEN [facility] Microorganism or agent identified Nom (Unsp spec) NO CLUECELL SEEN [facility] Specimen Description .VAGINA [facility] [facility] FOOT LT WO CONon 02-05-20 CT [...] EMILY ELY Date: 2023-02-04 20:[address] [facility] XR ANKLE LEFT 3+ VIEWS (ABDOULAYE [...] ThuJan 06, 2023 6:11:26 PM EDT Normal [facility] Comment on above: Order Comment: Injur y/Trauma or Illness?:Injury/Trauma How long have you had these symptoms (acute/chronic)?:Acute Reason for exam?:left lateral ankle pain History of cancer?: Surgeries, chemotherapy, or radiation?: Type of Exam?:Initial Mechanism of injury?:rolled ankle 4 days ago Radiology Outside Office [employer] yon 08-21-2022 Radiology Outside Office Copy [id number]# 1.00CD:127 Normal [facility] MRI FOOT LEFT W WO CONTRASTo n 06-25-2022 Combined with the accompanying radiographs, 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 [facility] EXAM: MRI FOOT LEFT [...] osteomyelitis. No nonenhancing abscess pockets are identified. [facility] Mike Villavicencio M D - 06/25/2022 [...] fragmentation of the navicular and cuneiform bones. [employer] Phone: Radiology Study observation (narrative) [employer] Phone: MRI FOOT LEFT W WO CONTRASTO rdered By: Mike Villavicencio on 06-25-2022 [employer] Phone: XR FOOT LEFT (2 VIEWS)on There is a linear metallic foreign body projecting between the second and third metatarsals. There is also a metallic foreign body within the lower leg. There is fragmentation of the navicular as well as of all 3 cuneiforms. The appearance is consistent with the patient's history of neuropathy. [facility] EXAM: XR FOOT LEFT ( 2 VIEWS) HISTORY: M79.5. The patient is a 42-year-old female. Evaluate for foreign body. COMPARISON: None. [facility] Mike Villavicencio M D - 06/25/2022 [...] consistent with the patient's history of neuropathy. 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 Clinical follow up recommended. Subcentimeter highly suspicious nodule in the right thyroid lobe 7 mm in greatest dimension. This meets criteria for annual follow up for 5 years. It does not meet criteria for FNA. [facility] EXAM: US HEAD NECK SOFT TISSUE [...] fat without shadowing, suggestive of a lipoma. [facility] TraMicky espinosa Jr., MD - 05/27/2022 EXAM: US HEAD [...] It does not meet criteria for FNA. [employer] Phone: Radiology Study observation (narrative) [employer] Phone: US HEAD NECK SOFT TISSUE THY ROIDOrdered By: Micky Lauren on 05-27-2022 [facility] [employer] Phone: Rejection Notificationon Reason see below Normal [facility] Comment on above: Result Comment: Unab le to perform testing; no specimen received. To perform testing the specimen will need to be recollected. No spec Performed By: #### R EJEC #### [facility] [address] [facility] [id number] Rejected Test [facility] Comment on above: Performed By: #### R EJEC #### [facility] [address] [facility] [id number] LDL Cholesterol, Directon Cholesterol in LDL [Mass/Vol] 84 mg/dL <100 [facility] CBC with Auto Differentialon 04-12-2022 Absolute Eos # 0.10 [facility] Absolute Lymph # 1.40 [facility] Absolute Braxton # 0.30 [facility] Basophils (Bld) [#/Vol] 0.00 10*3/uL [facility] Basophils/100 WBC (Bld) 1 % 0 - 2 % [facility] Differential Type [facility] Eosinophils/100 WBC (Bld) 1 % 0 - 5 % [facility] Hematocrit (Bld) [Volume fraction] 35.7 % Low 36 - 46 % [facility] Hemoglobin (Bld) [Mass/Vol] 12.0 g/dL 12.0 - 16.0 g/dL [facility] Interpretation and review of laboratory results Abnormal [facility] Lymphocytes/100 WBC (Bld) 25 % 15 - 40 % [facility] MCH (RBC) [Entitic mass] 28.0 pg 26 - 34 pg [facility] MCHC (RBC) [Mass/Vol] 33.7 g/dL 31 - 37 g/dL B ON [facility] MCV (RBC) [Entitic vol] 83.3 fL 80 - 100 fL [facility] Monocytes/100 WBC (Bld) 5 % 4 - 8 % [facility] Platelet distribution width (Bld) [Ratio] 16.4 % High 12.1 - 15.2 % [facility] Platelets (Bld) [#/Vol] 168 10*3/uL [facility] RBC (Bld) [#/Vol] 4.29 10*6/uL 4.0 - 5.2 m/uL [facility] Segmented neutrophils/100 WBC (Bld) 68 % 47 - 75 % [facility] Segs Absolute 3.90 [facility] WBC (Bld) [#/Vol] 5.7 10*3/uL [facility] 04-12-2022 Albumin [Mass/Vol] 4.2 g/dL 3.5 - 5.2 g/dL [facility] ALP (Bld) [Catalytic activity/Vol] 88 U/L 35 - 104 U/L [facility] ALT [Catalytic activity/Vol] 29 U/L 5 - 33 U/L [facility] Anion gap [Moles/Vol] 11 mmol/L 9 - 17 mmol/L [facility] AST [Catalytic activity/Vol] 27 U/L <32 [facility] Bilirubin [Mass/Vol] 0.65 mg/dL 0.30 - 1.20 mg/dL [facility] Calcium [Mass/Vol] 9.1 mg/dL 8.6 - 10. 4 mg/dL [facility] Chloride [Moles/Vol] 101 mmol/L 98 - 10 7 mmol/L [facility] CO2 [Moles/Vol] 28 mmol/L 20 - 31 mmol/L [facility] Creatinine [Mass/Vol] 1.04 mg/dL High 0.50 - 0.90 mg/dL [facility] Free PSA/Total PSA [Mass fraction] 6.8 g/dL 6.4 - 8.3 g/dL [facility] GFR >60 >60 mL/min [facility] GFR Non- 58 mL/min Low >60 [facility] GFR/1.73 sq M.predicted MDRD (S/P/Bld) [Vol rate/Area] [facility] Comment on above: Average GFR for 40-4 9 years old: 99 mL/min/1.73sq m Chronic Kidney Disease: <60 mL/min/1.73sq m Kidney failure: <15 mL/min/1.73sq m eGFR calculated using average adult body mass. Additional eGFR calculator available at: http://www.[employer]/multiple_crcl_2012.htm Glucose [Mass/Vol] 103 mg/dL High 70 - 99 mg/dL [facility] Interpretation and review of laboratory results Abnormal [facility] Potassium [Moles/Vol] 3.9 mmol/L 3.7 - 5.3 mmol/L [facility] Sodium [Moles/Vol] 140 mmol/L 135 - 144 mmol/L [facility] Urea nitrogen (BldV) [Mass/Vol] 13 mg/dL 6 - 20 mg/dL [facility] Urea nitrogen/Creatinine (Bld) [Mass ratio] 13 [facility] HIV Screenon 04-12-2022 HIV Ag/Ab Non-Reactive NONREACTIVE [facility] Comment on above: No laboratory eviden ce of HIV infection. If acute HIV infection is suspected, consider testing for HIV-1 RNA. [facility] Lipid Panelon 04-12-2022 Cholesterol [Mass/Vol] 184 mg/dL <200 [facility] Comment on above: Cholesterol Guidelines: <200 Desirable 200-240 Borderline >240 Undesirable Cholesterol in HDL [Mass/Vol] 30 mg/dL Low >40 [facility] Comment on above: HDL Guidelines: <40 Undesirable 40-59 Borderline >59 Desirable Cholesterol.total/Cho lesterol in HDL [Mass ratio] 6.1 {ratio} High <5 [facility] Interpretation and review of laboratory results Abnormal [facility] LDL Cholesterol 0 - 130 mg/dL [facility] Comment on above: Calculation not jacqueline d for Triglyceride value greater than 400 mg/dL. Direct LDL reflexed LDL Guidelines: <100 Desirable 100-129 Near to/above Desirable 130-159 Borderline >159 Undesirable Direct (measured) LDL and calculated LDL are not interchangeable tests. Triglyceride [Mass/Vol] 460 mg/dL High <150 [facility] Comment on above: Triglyceride Guidelines: <150 Desirable 150-199 Borderline 200-499 High >499 Very high Based on AHA Guidelines for fasting triglyceride, July 2012. [facility] No Panel Informationon 04-12 [facility] TSH with Reflexon 04-12-2022 TSH Qn 0.99 m[IU]/L [facility] Urinalysis with MicroscopicO rdered By: Lita Weeks on 08-01-2021 - [facility] Work Phone: Amorphous, UA NOT REPORTED None [facility] Work Phone: Bacteria, UA RARE Abnormal None [facility] Work Phone: Bilirubin Urine Negative NEGATIVE [facility] Work Phone: Casts UA NOT REPORTED /LPF [facility] [employer] Work Phone: Color, UA Yellow Yellow [facility] Work Phone: Crystals, UA NOT REPORTED None /HPF [facility] Work Phone: Epithelial Cells UA 2 TO 5 /HPF [facility] Work Phone: Glucose, Ur Negative NEGATIVE [facility] [employer] Work Phone: Interpretation and review of laboratory results Abnormal [facility] [employer] Work Phone: Ketones Ql (U) Negative NEGATIVE [facility] Work Phone: Leukocyte esterase Test strip Ql (U) Negative NEGATIVE [facility] [employer] Work Phone: Mucus, UA NOT REPORTED None [facility] [employer] Work Phone: Nitrite, Urine Negative NEGATIVE [facility] Work Phone: Other Observations UA NOT REPORTED NOT REQ. [facility] [employer] Work Phone: pH, UA 6.0 [facility] [employer] Work Phone: Protein, UA Negative NEGATIVE [facility] Work Phone: RBC, UA NOT REPORTED [facility] Work Phone: Renal Epithelial, UA NOT REPORTED 0 /HPF [facility] Work Phone: Specific [place], UA 1.020 [facility] [employer] Work Phone: Trichomonas, UA NOT REPORTED None [facility] Work Phone: Turbidity UA Clear Clear [facility] [employer] Work Phone: Urinalysis Comments [facility] [employer] Work Phone: Urine Hgb Negative NEGATIVE [facility] [employer] Work Phone: Urobilinogen, Urine Normal Normal [facility] Phone: WBC, UA NOT REPORTED 0 /HPF [facility] Work Phone: Yeast, UA NOT REPORTED None [facility] Work Phone: [facility] Work Phone: Urinalysis with MicroscopicO rdered By: Lita Weeks on 07-11-2021 - [employer] Work Phone: Amorphous, UA NOT REPORTED None [facility] Work Phone: Bacteria, UA 3+ Abnormal None [facility] Work Phone: Bilirubin Urine Negative NEGATIVE [facility] Work Phone: Casts UA NOT REPORTED /LPF [facility] Work Phone: Color, UA Yellow Yellow [facility] Work Phone: Crystals, UA NOT REPORTED None /HPF [employer] Work Phone: Epithelial Cells UA 2 TO 5 /HPF [facility] Work Phone: Glucose, Ur Negative NEGATIVE [employer] Phone: Interpretation and review of laboratory results Abnormal [employer] Work Phone: Ketones Ql (U) Negative NEGATIVE [facility] Work Phone: Leukocyte esterase Test strip Ql (U) 2+ Abnormal NEGATIVE [employer] Work Phone: Mucus, UA NOT REPORTED None [facility] Work Phone: Nitrite, Urine Positive Abnormal NEGATIVE [employer] Work Phone: Other Observations UA NOT REPORTED NOT REQ. [facility] Work Phone: pH, UA 6.0 [facility] Work Phone: Protein, UA Negative NEGATIVE [facility] Work Phone: RBC, UA NOT REPORTED [employer] Phone: Renal Epithelial, UA NOT REPORTED 0 /HPF [employer] Work Phone: Specific [place], UA 1.025 [employer] Phone: Trichomonas, UA NOT REPORTED None [facility] Work Phone: Turbidity UA Hazy Abnormal Clear [employer] Work Phone: Urinalysis Comments [employer] Phone: Urine Hgb Negative NEGATIVE [employer] Phone: Urobilinogen, Urine Normal Normal [employer] Phone: WBC, UA 20 TO 50 0 /HPF [facility] Phone: Yeast, UA NOT REPORTED None [facility] Phone: [employer] Phone: AlbuminOrdered By: Gregory stevens on 05-20-2021 Albumin [Mass/Vol] 4.2 g/dL 3.5 - 5.2 g/dL [employer] Phone: BUN & CreatinineOrdered By: Gregory Forbes on 05-20-2021 Creatinine [Mass/Vol] 1.18 mg/dL High 0.50 - 0.90 mg/dL [employer] Phone: GFR >60 >60 mL/min [employer] Phone: GFR Non- 50 mL/min Low >60 [employer] Phone: GFR/1.73 sq M.predicted MDRD (S/P/Bld) [Vol rate/Area] [employer] Phone: Comment on above: Average GFR for 40-4 9 years old: 99 mL/min/1.73sq m Chronic Kidney Disease: <60 mL/min/1.73sq m Kidney failure: <15 mL/min/1.73sq m eGFR calculated using average adult body mass. Additional eGFR calculator available at: http://www.[employer]/multiple_crcl_2012.htm GFR/1.73 sq M.predicted MDRD (S/P/Bld) [Vol rate/Area] NOT REPORTED [employer] Phone: Interpretation and review of laboratory results Abnormal [employer] Phone: Urea nitrogen (BldV) [Mass/Vol] 19 mg/dL 6 - 20 mg/dL [employer] Phone: CalciumOrdered By: Gregory stevens on 05-20-2021 Calcium [Mass/Vol] 9.2 mg/dL 8.6 - 10. 4 mg/dL [employer] Phone: Electrolyte PanelOrdered By: Gregory Forbes on 05-20-2021 Anion gap [Moles/Vol] 10 mmol/L 9 - 17 mmol/L [employer] Phone: Chloride [Moles/Vol] 103 mmol/L 98 - 10 7 mmol/L [employer] Phone: CO2 [Moles/Vol] 25 mmol/L 20 - 31 mmol/L [employer] Phone: Potassium [Moles/Vol] 4.2 mmol/L 3.7 - 5.3 mmol/L [employer] Phone: Sodium [Moles/Vol] 138 mmol/L 135 - 144 mmol/L [employer] Phone: MagnesiumOrdered By: Gregory high on 05-20-2021 Magnesium [Mass/Vol] 2.2 mg/dL 1.6 - 2 .6 mg/dL [employer] Phone: No Panel InformationOrdered By: Gregory Forbes on 05-20-2021 [employer] Phone: PhosphorusOrdered By: Gregory Forbes on 05-20-2021 Phosphate [Mass/Vol] 3.7 mg/dL 2.6 - 4 .5 mg/dL [employer] Phone: UrinalysisOrdered By: Gregory Forbes on 05-20-2021 Bilirubin Urine Negative NEGATIVE [employer] [facility] Work Phone: Color, UA YELLOW YELLOW [employer] Work Phone: Glucose, Ur Negative NEGATIVE [employer] Work Phone: Interpretation and review of laboratory results Abnormal [employer] Work Phone: Ketones Ql (U) Negative NEGATIVE [employer] Work Phone: Leukocyte esterase Test strip Ql (U) Negative NEGATIVE [employer] Phone: Nitrite, Urine Negative NEGATIVE [employer] Work Phone: pH, UA 5.0 [facility] Work Phone: Protein, UA TRACE Abnormal NEGATIVE [employer] Phone: Specific [place], UA 1.020 [employer] Phone: Turbidity UA CLEAR CLEAR [employer] Phone: Urinalysis Comments [employer] Phone: Urine Hgb Negative NEGATIVE [employer] Phone: Urobilinogen, Urine Normal Normal [employer] Phone: [employer] Phone: COVID-19Ordered By: Pattie smith on 01-22-2021 SARS-CoV-2 (COVID-19) RNA SHARMIN+probe Ql (Unsp spec) [employer] Phone: SARS-CoV-2 (COVID-19) RNA SHARMIN+probe Ql (Unsp spec) Not detected Not Detected [employer] Phone: Comment on above: The specimen is NEGATIVE for SARS-CoV-2, the novel coronavirus associated with COVID-19. A negative result does not rule out COVID-19. Twin SARS-CoV-2 for use on the [employer] is a real-time RT-PCR test intended [...] this assay. Fact sheet for Healthcare Providers: https://www.fda.gov/media/533168/download Fact sheet for Patients: https://www.fda.gov/media/313171/download METHODOLOGY: RT-PCR Source .THROAT [facility] [employer] Phone: COVID-19, PCRon 11-15-2020 SARS-CoV-2, Rapid Not Detected Not Detected [facility] [employer] Phone: Comment on above: Rapid NAAT: The [...] management decisions. Fact sheet for Healthcare Providers: https://www.fda.gov/media/142040/download Fact sheet for Patients: https://www.fda.gov/media/076255/download Methodology: Isothermal Nucleic Acid Amplification Source .THROAT [facility] [employer] Work Phone: Otheron 11-15-2020 SARS-CoV-2 [facility] [employer] Work Phone: CBC Auto Differentialon 09-04 Basophils (Bld) [#/Vol] 0.10 10*3/uL [place] Basophils/100 WBC (Bld) 1 % 0 - 2 % [place] Differential Type YES [facility] [place] Eosinophils (Bld) [#/Vol] 0.10 10*3/uL [place] Eosinophils/100 WBC (Bld) 1 % 0 - 5 % [place] Erythrocyte distribution width (RBC) [Ratio] 16.3 % High 12.1 - 15.2 % [place] Hematocrit (Bld) [Volume fraction] 36.5 % 36 - 46 % [place] Hemoglobin (Bld) [Mass/Vol] 12.5 g/dL 12 - 16 g/dL [place] Interpretation and review of laboratory results Abnormal [place] Lymphocytes (Bld) [#/Vol] 1.90 10*3/uL [place] Lymphocytes/100 WBC (Bld) 25 % 15 - 40 % [place] MCH (RBC) [Entitic mass] 28.8 pg 26 - 34 pg [place] MCHC (RBC) [Mass/Vol] 34.3 g/dL 31 - 37 g/dL [place] MCV (RBC) [Entitic vol] 84.0 fL 80 - 100 fL [place] Monocytes (Bld) [#/Vol] 0.40 10*3/uL [place] Monocytes/100 WBC (Bld) 5 % 4 - 8 % [place] Platelet mean volume (Bld) [Entitic vol] NOT REPORTED 6 - 12 fL [place] Platelets (Bld) [#/Vol] 167 10*3/uL [place] Platelets (Bld) [#/Vol] NOT REPORTED [place] RBC (Bld) [#/Vol] 4.35 10*6/uL 4 - 5.2 m/uL [place] RBC morphology finding Nom (Bld) NOT REPORTED [place] Segmented neutrophils/100 WBC (Bld) 68 % 47 - 75 % [place] Segs Absolute 5.40 [place] WBC (Bld) [#/Vol] 7.8 10*3/uL [place] WBC (Bld) [#/Vol] NOT REPORTED per 100 WBC [place] WBC Morphology NOT REPORTED [place] Comprehensive Metabolic Pane l w/ Reflex to MGon 09-16-2020 Albumin [Mass/Vol] 4.4 g/dL 3.5 - 5.2 g/dL [place] Albumin/Globulin [Mass ratio] NOT REPORTED [place] ALP [Catalytic activity/Vol] 117 U/L High 35 - 104 U/L [place] ALT [Catalytic activity/Vol] 41 U/L High 5 - 33 U/L [place] Anion gap [Moles/Vol] 10 mmol/L 9 - 17 mmol/L [place] AST [Catalytic activity/Vol] 39 U/L High <32 [place] Bilirubin Ql (U) 0.52 mg/dL 0.3 - 1.2 mg/dL [place] Bun/Cre Ratio 11 [place] Calcium [Mass/Vol] 9.0 mg/dL 8.6 - 10. 4 mg/dL [place] Chloride [Moles/Vol] 101 mmol/L 98 - 10 7 mmol/L [place] CO2 [Moles/Vol] 26 mmol/L 20 - 31 mmol/L [place] Creatinine [Mass/Vol] 1.32 mg/dL High 0.5 - 0.9 mg/dL [place] GFR 54 mL/min Low >60 [place] GFR Non- 44 mL/min Low >60 [place] GFR/1.73 sq M predicted among non-blacks MDRD (S/P/Bld) [Vol rate/Area] [place] Comment on above: Average GFR for 40-4 9 years old: 99 mL/min/1.73sq m Chronic Kidney Disease: <60 mL/min/1.73sq m Kidney failure: <15 mL/min/1.73sq m eGFR calculated using average adult body mass. Additional eGFR calculator available at: http://www.[employer]/multiple_crcl_2012.htm GFR/1.73 sq M predicted among non-blacks MDRD (S/P/Bld) [Vol rate/Area] NOT REPORTED [place] Glucose [Mass/Vol] 173 mg/dL High 70 - 99 mg/dL [place] Interpretation and review of laboratory results Abnormal [place] Potassium [Moles/Vol] 3.9 mmol/L 3.7 - 5.3 mmol/L [place] Protein [Mass/Vol] 7.3 g/dL 6.4 - 8.3 g/dL [place] Sodium [Moles/Vol] 137 mmol/L 135 - 144 mmol/L [place] Urea nitrogen [Mass/Vol] 15 mg/dL 6 - 20 mg/dL [place] Otheron 09-16-2020 Immature granulocytes (Bld) [#/Vol] NOT REPORTED [place] Sedimentation Rateon 020 Sed Rate 15 mm 0 - 20 mm [place] Urinalysis, reflex to micros copicon 09-16-2020 Bilirubin Urine Negative NEGATIVE [place] Color, UA YELLOW YELLOW [place] Glucose, Ur Negative NEGATIVE [place] Interpretation and review of laboratory results Abnormal [place] Ketones Ql (U) Negative NEGATIVE [place], [place] Leukocyte esterase Test strip Ql (U) Negative NEGATIVE [place] Nitrite, Urine Negative NEGATIVE [place] pH, UA 5.0 [place] Protein (U) [Mass/Vol] TRACE Abnormal NEGATIVE [place] Specific [place], UA 1.025 [place], [place] Turbidity UA CLEAR CLEAR [place] Urinalysis Comments [place] Urine Hgb Negative NEGATIVE [place] Urobilinogen, Urine Normal Normal [place] C-Reactive Proteinon 020 CRP [Mass/Vol] 6 mg/L High 0 - 5 mg/L [place], [place] Interpretation and review of laboratory results Abnormal [place] CBC With Auto Differentialon 08-24-2020 Basophils (Bld) [#/Vol] 0.00 10*3/uL [place] Basophils/100 WBC (Bld) 1 % 0 - 2 % [place] Differential Type YES [place] Eosinophils (Bld) [#/Vol] 0.10 10*3/uL [place] Eosinophils/100 WBC (Bld) 1 % 0 - 5 % [place] Erythrocyte distribution width (RBC) [Ratio] 16.2 % High 12.1 - 15.2 % [place] Hematocrit (Bld) [Volume fraction] 35.4 % Low 36 - 46 % [place] Hemoglobin (Bld) [Mass/Vol] 12.2 g/dL 12 - 16 g/dL [place] Interpretation and review of laboratory results Abnormal [place] Lymphocytes (Bld) [#/Vol] 1.60 10*3/uL [place] Lymphocytes/100 WBC (Bld) 28 % 15 - 40 % [place] MCH (RBC) [Entitic mass] 29.1 pg 26 - 34 pg [place] MCHC (RBC) [Mass/Vol] 34.5 g/dL 31 - 37 g/dL [place] MCV (RBC) [Entitic vol] 84.2 fL 80 - 100 fL [place] Monocytes (Bld) [#/Vol] 0.40 10*3/uL [place] Monocytes/100 WBC (Bld) 6 % 4 - 8 % [place] Platelet mean volume (Bld) [Entitic vol] NOT REPORTED 6 - 12 fL [place] Platelets (Bld) [#/Vol] 160 10*3/uL [place] Platelets (Bld) [#/Vol] NOT REPORTED [place] RBC (Bld) [#/Vol] 4.20 10*6/uL 4 - 5.2 m/uL [place] RBC morphology finding Nom (Bld) NOT REPORTED [place] Segmented neutrophils/100 WBC (Bld) 64 % 47 - 75 % [place] Segs Absolute 3.80 [place] WBC (Bld) [#/Vol] 5.8 10*3/uL [place] WBC (Bld) [#/Vol] NOT REPORTED per 100 WBC [place], [place] WBC Morphology NOT REPORTED [place] Otheron 08-24-2020 Immature granulocytes (Bld) [#/Vol] NOT REPORTED 0 % [place] Sedimentation Rateon 020 Sed Rate 10 mm 0 - 20 mm [place] C-Reactive Proteinon 020 CRP [Mass/Vol] 2 mg/L 0 - 5 mg/L [place], [place] CBC With Auto Differentialon 07-24-2020 Basophils (Bld) [#/Vol] 0.10 10*3/uL [place] Basophils/100 WBC (Bld) 1 % 0 - 2 % [place] Differential Type YES [place] Eosinophils (Bld) [#/Vol] 0.10 10*3/uL [place] Eosinophils/100 WBC (Bld) 1 % 0 - 5 % [place] Erythrocyte distribution width (RBC) [Ratio] 16.8 % High 12.1 - 15.2 % [place] Hematocrit (Bld) [Volume fraction] 40.0 % 36 - 46 % [place] Hemoglobin (Bld) [Mass/Vol] 13.5 g/dL 12 - 16 g/dL [place] Interpretation and review of laboratory results Abnormal [place] Lymphocytes (Bld) [#/Vol] 1.70 10*3/uL [place] Lymphocytes/100 WBC (Bld) 17 % 15 - 40 % [place] MCH (RBC) [Entitic mass] 29.1 pg 26 - 34 pg [place] MCHC (RBC) [Mass/Vol] 33.8 g/dL 31 - 37 g/dL [place] MCV (RBC) [Entitic vol] 86.0 fL 80 - 100 fL [place] Monocytes (Bld) [#/Vol] 0.50 10*3/uL [place] Monocytes/100 WBC (Bld) 5 % 4 - 8 % [place] Platelet mean volume (Bld) [Entitic vol] NOT REPORTED 6 - 12 fL [place] Platelets (Bld) [#/Vol] NOT REPORTED [place] Platelets (Bld) [#/Vol] 208 10*3/uL [place] RBC (Bld) [#/Vol] 4.65 10*6/uL 4 - 5.2 m/uL [place] RBC morphology finding Nom (Bld) NOT REPORTED [place] Segmented neutrophils/100 WBC (Bld) 76 % High 47 - 75 % [place] Segs Absolute 7.70 High [place] WBC (Bld) [#/Vol] NOT REPORTED per 100 WBC [place] WBC (Bld) [#/Vol] 10.0 10*3/uL [place] WBC Morphology NOT REPORTED [place] Otheron 07-24-2020 Immature granulocytes (Bld) [#/Vol] NOT REPORTED 0 % [place] Sedimentation Rateon 020 Sed Rate 6 mm 0 - 20 mm [place] Protein / creatinine ratio, urineon 06-07-2020 Creatinine, Ur 101.2 mg/dL 28 - 217 mg/dL [place] Protein (U) [Mass/Vol] 8 mg/dL [place] Comment on above: No normal range esta blished. Urine Total Protein Creatinine Ratio 0.08 [place] Urinalysison 06-07-2020 Bilirubin Urine Negative NE[facility]IVE [facility] [place] [place] Color, UA YELLOW YELLOW [place] Glucose, Ur 100 mg/dL Abnormal NEGATIVE [place] Interpretation and review of laboratory results Abnormal [place] Ketones Ql (U) Negative NEGATIVE [place], [place] Leukocyte esterase Test strip Ql (U) Negative NEGATIVE [place] Nitrite, Urine Negative NEGATIVE [place] pH, UA 6.0 [place] Protein (U) [Mass/Vol] Negative NEGATIVE [place] Specific [place], UA 1.020 [place], [place] Turbidity UA CLEAR CLEAR [place] Urinalysis Comments [place] Urine Hgb Negative NEGATIVE [place] Urobilinogen, Urine Normal Normal [place] Comprehensive Metabolic Pane ananda 05-25-2020 Albumin [Mass/Vol] 4.4 g/dL 3.5 - 5.2 g/dL [place] Albumin/Globulin [Mass ratio] NOT REPORTED [place] ALP [Catalytic activity/Vol] 87 U/L 35 - 104 U/L [place] ALT [Catalytic activity/Vol] 21 U/L 5 - 33 U/L [place] Anion gap [Moles/Vol] 10 mmol/L 9 - 17 mmol/L [place] AST [Catalytic activity/Vol] 22 U/L <32 [place] Bilirubin Ql (U) 0.32 mg/dL 0.3 - 1.2 mg/dL [place] Bun/Cre Ratio 18 [place] Calcium [Mass/Vol] 10.1 mg/dL 8.6 - 10. 4 mg/dL [place] Chloride [Moles/Vol] 104 mmol/L 98 - 10 7 mmol/L [place] CO2 [Moles/Vol] 26 mmol/L 20 - 31 mmol/L [place] Creatinine [Mass/Vol] 1.37 mg/dL High 0.5 - 0.9 mg/dL [place] GFR 52 mL/min Low >60 [place] GFR Non- 43 mL/min Low >60 [place] GFR/1.73 sq M predicted among non-blacks MDRD (S/P/Bld) [Vol rate/Area] NOT REPORTED [place] GFR/1.73 sq M predicted among non-blacks MDRD (S/P/Bld) [Vol rate/Area] [place] Comment on above: Average GFR for 40-4 9 years old: 99 mL/min/1.73sq m Chronic Kidney Disease: <60 mL/min/1.73sq m Kidney failure: <15 mL/min/1.73sq m eGFR calculated using average adult body mass. Additional eGFR calculator available at: http://www.[employer]/multiple_crcl_2012.htm Glucose [Mass/Vol] 160 mg/dL High 70 - 99 mg/dL [place] Interpretation and review of laboratory results Abnormal [place] Potassium [Moles/Vol] 4.6 mmol/L 3.7 - 5.3 mmol/L [place] Protein [Mass/Vol] 7.4 g/dL 6.4 - 8.3 g/dL [place] Sodium [Moles/Vol] 140 mmol/L 135 - 144 mmol/L [place] Urea nitrogen [Mass/Vol] 24 mg/dL High 6 - 20 mg/dL [place] Hemoglobin A1Con 05-25-2020 Glucose [Mass/Vol] 123 mg/dL [place] Comment on above: The ADA and AACC rec ommend providing the estimated average glucose result to permit better patient understanding of their HBA1c result. HbA1c (Bld) [Mass fraction] 5.9 % 4 - 6 % [place] LDL Cholesterol, Directon Cholesterol in LDL [Mass/Vol] 58 mg/dL <100 [place] Lipid Panelon 05-25-2020 Cholesterol [Mass/Vol] 194 mg/dL <200 [place] Comment on above: Cholesterol Guidelines: <200 Desirable 200-240 Borderline >240 Undesirable Cholesterol in HDL [Mass/Vol] 27 mg/dL Low >40 [place] Comment on above: HDL Guidelines: <40 Undesirable 40-59 Borderline >59 Desirable Cholesterol in LDL [Mass/Vol] 0 - 130 mg/dL [place] Comment on above: Calculation not jacqueline d for Triglyceride value greater than 400 mg/dL. Direct LDL reflexed LDL Guidelines: <100 Desirable 100-129 Near to/above Desirable 130-159 Borderline >159 Undesirable Direct (measured) LDL and calculated LDL are not interchangeable tests. Cholesterol in VLDL [Mass/Vol] NOT REPORTED 1 - 30 mg/dL [place] Cholesterol.total/Cho lesterol in HDL [Mass ratio] 7.2 {ratio} High <5 [place] Interpretation and review of laboratory results Abnormal [place] Triglyceride [Mass/Vol] 1112 mg/dL High <150 [place] Comment on above: Triglyceride Guidelines: <150 Desirable 150-199 Borderline 200-499 High >499 Very high Based on AHA Guidelines for fasting triglyceride, July 2012. Patient Fasting?on 0 Patient Fasting? YES [place] Vitamin D 25 Hydroxyon 05-25 Vit D, 25-Hydroxy 30.2 ng/mL 30 - 100 ng/mL [place] Comment on above: Reference Range: Vitamin D status Range Deficiency <20 ng/mL Mild Deficiency 20-30 ng/mL Sufficiency 30-100 ng/mL Toxicity >100 ng/mL C-Reactive Proteinon 020 CRP [Mass/Vol] 6.2 mg/L High 0 - 5 mg/L [place] Interpretation and review of laboratory results Abnormal [place] Hemoglobin [id number] By: Kevin Allen on 09-24-2019 Glucose [Mass/Vol] 108 mg/dL [facility] Work Phone: Comment on above: The ADA and AACC rec ommend providing the estimated average glucose result to permit better patient understanding of their HBA1c result. HbA1c (Bld) [Mass fraction] 5.4 % 4.8 - 5.9 % [employer] Phone: Homocysteine, SerumOrdered B y: Janel Allen on 09-24-2019 Homocysteine 9 umol/L <15.0 [employer] Phone: TSH without ReflexOrdered By : Janel Allen on 09-24-2019 TSH Qn 1.03 m[IU]/L [employer] Phone: Vitamin B12 & FolateOrdered By: Janel Allen on 09-24-2019 Cobalamin (Vitamin B12) [Mass/Vol] 292 pg/mL 232 - 1245 pg/mL [employer] Phone: Folate 13.8 ng/mL >4.8 [employer] Phone: XR CERVICAL SPINE (4-5 VIEWS )on 07-29-2019 Mild degenerative changes cervical spine not unusual for age. Refer to the MRI [facility] 02/03/2019 with some of the findings discussed above. [facility] [place] [place] EXAM: XR CERVICAL SPINE (4-5 VIEWS) HISTORY: Reason for exam:->history MRSA discitis of thoracic region. New tingling and numbness of fingers COMPARISON: MRI cervical spine [facility] 02/03/2019, cervical spine series 04/03/2010. The [...] Swimmer's lateral view shows no additional abnormality. 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 New tingling and numbness of fingers COMPARISON: MRI cervical spine [facility] 02/03/2019, cervical spine series 04/03/2010. The MRI [...] unusual for age. Refer to the MRI [facility] 02/03/2019 with some of the findings discussed above. [place] C-Reactive ProteinOrdered By : Azalea Knight on 07-28-2019 CRP [Mass/Vol] 6.4 mg/L High 0 - 5 mg/L [place] Interpretation and review of laboratory results Abnormal [place] CBC With Auto DifferentialOr dered By: Azalea Knight on 07-28-2019 Absolute Eos # 0.10 [place], [place] Absolute Immature Granulocyte NOT REPORTED [place] Absolute Lymph # 2.10 [place] Absolute Braxton # 0.50 [place] Basophils (Bld) [#/Vol] 0.00 10*3/uL [place] Basophils/100 WBC (Bld) 1 % 0 - 2 % [place] Differential Type YES [facility] [place] Eosinophils/100 WBC (Bld) 1 % 0 - 5 % [place] Erythrocyte distribution width (RBC) [Ratio] 14.5 % 12.1 - 15.2 % [place] Hematocrit (Bld) [Volume fraction] 38.1 % 36 - 46 % [place] Hemoglobin (Bld) [Mass/Vol] 12.9 g/dL 12 - 16 g/dL [place] Immature Granulocytes NOT REPORTED 0 % [place] Lymphocytes/100 WBC (Bld) 34 % 15 - 40 % [place] MCH (RBC) [Entitic mass] 29.5 pg 26 - 34 pg [place] MCHC (RBC) [Mass/Vol] 33.9 g/dL 31 - 37 g/dL [place] MCV (RBC) [Entitic vol] 87.1 fL 80 - 100 fL [place] Monocytes/100 WBC (Bld) 8 % 4 - 8 % [place] MPV NOT REPORTED 6 - 12 fL [place] NRBC Automated NOT REPORTED per 100 WBC [place] Platelet Estimate NOT REPORTED [place] Platelets (Bld) [#/Vol] 222 10*3/uL [place] RBC (Bld) [#/Vol] 4.38 10*6/uL 4 - 5.2 m/uL [place] RBC morphology finding Nom (Bld) NOT REPORTED [place] Segmented neutrophils/100 WBC (Bld) 56 % 47 - 75 % [place] Segs Absolute 3.50 [place] WBC (Bld) [#/Vol] 6.2 10*3/uL [place] WBC Morphology NOT REPORTED [place] Sedimentation RateOrdered By : Azalea Knight on 07-28-2019 Sed Rate 19 mm 0 - 30 [place] C-Reactive Proteinon 019 CRP [Mass/Vol] 7.3 mg/L High 0 - 5 mg/L [place] Interpretation and review of laboratory results Abnormal [place] Albuminon 06-17-2019 Albumin [Mass/Vol] 4.3 g/dL 3.5 - 5.2 g/dL [place] BUN & Creatinineon 9 Creatinine [Mass/Vol] 1.27 mg/dL High 0.5 - 0.9 mg/dL [place] GFR 56 mL/min Low >60 [place] GFR Non- 47 mL/min Low >60 [place] GFR/1.73 sq M predicted among non-blacks MDRD (S/P/Bld) [Vol rate/Area] NOT REPORTED [place] GFR/1.73 sq M predicted among non-blacks MDRD (S/P/Bld) [Vol rate/Area] [place] Comment on above: Average GFR for 40-4 9 years old: 99 mL/min/1.73sq m Chronic Kidney Disease: <60 mL/min/1.73sq m Kidney failure: <15 mL/min/1.73sq m eGFR calculated using average adult body mass. Additional eGFR calculator available at: http://www.[employer]/multiple_crcl_2012.htm Interpretation and review of laboratory results [place] Urea nitrogen [Mass/Vol] 18 mg/dL 6 - 20 mg/dL [place] Calciumon 06-17-2019 Calcium [Mass/Vol] 10.4 mg/dL 8.6 - 10. 4 mg/dL [place] Electrolyte Panelon 06-17-20 19 Anion gap [Moles/Vol] 13 mmol/L 9 - 17 mmol/L [place] Chloride [Moles/Vol] 103 mmol/L 98 - 10 7 mmol/L [place] CO2 [Moles/Vol] 24 mmol/L 20 - 31 mmol/L [place] Potassium [Moles/Vol] 3.8 mmol/L 3.7 - 5.3 mmol/L [place] Sodium [Moles/Vol] 140 mmol/L 135 - 144 mmol/L [place] Hemoglobin and Hematocrit, B loodon 06-17-2019 Hematocrit (Bld) [Volume fraction] 35.4 % Low 36 - 46 % [place] Hemoglobin (Bld) [Mass/Vol] 12.1 g/dL 12 - 16 g/dL [place] Interpretation and review of laboratory results [place]normal [place] Magnesiumon 06-17-2019 Magnesium [Mass/Vol] 2.3 mg/dL 1.6 - 2 .6 mg/dL [place] Microscopic Urinalysison Amorphous, UA NOT REPORTED None [place] Bacteria, UA 1+ Abnormal None [place] Casts UA NOT REPORTED /LPF [place] Crystals UA NOT REPORTED None /HPF [place] Epithelial Cells UA 2 TO 5 /HPF [place] Interpretation and review of laboratory results [place]normal [place] Mucus, UA NOT REPORTED None [place] Other Observations UA NOT REPORTED NOT REQ. [place] RBC (U) [#/Vol] NOT REPORTED [place] Renal Epithelial, Urine NOT REPORTED 0 /HPF [place] Trichomonas, UA NOT REPORTED None [place] WBC, UA 0 TO 2 0 /HPF [place] Yeast, UA NOT REPORTED None [place] - [place] Phosphoruson 06-17-2019 Phosphate [Mass/Vol] 3.0 mg/dL 2.6 - 4 .5 mg/dL [place] Protein / creatinine ratio, urineon 06-17-2019 Creatinine, Ur 228.2 mg/dL High 28 - 217 mg/dL [place] Interpretation and review of laboratory results [place]normal [place] Protein (U) [Mass/Vol] 18 mg/dL [place] Comment on above: No normal range esta blished. Urine Total Protein Creatinine Ratio 0.08 [place] Sedimentation Rateon 019 Sed Rate 24 mm 0 - 30 mm [place] Urinalysison 06-17-2019 Bilirubin Urine Negative NEGATIVE [place] Color, UA YELLOW YELLOW [place] Glucose, Ur Negative NEGATIVE [place] Interpretation and review of laboratory results Abnormal [place] Ketones Ql (U) Negative NEGATIVE [place], [place] Leukocyte esterase Test strip Ql (U) Negative NEGATIVE [place] Nitrite, Urine Negative NEGATIVE [place], [place] pH, UA 6.0 [place] Protein (U) [Mass/Vol] TRACE Abnormal NEGATIVE [place] Specific [place], UA 1.025 [place], [place] Turbidity UA HAZY Abnormal CLEAR [place] Urinalysis Comments [place] Urine Hgb Negative NEGATIVE [place] Urobilinogen, Urine Normal [place] MR CERVICAL SPINE WITHOUT CO NTRASTon [...] be due to myelomalacia or cord edema. [employer] Workstation ID: [id number] [facility] EXAMINATION: MR CERVICAL SPINE WITHOUT CONTRAST HISTORY: [...] creating probable mild left-sided neural foraminal stenosis. [facility], Rad In Aric Speechq - 02/03/2019 11:02 AM EDT EXAMINATION: [...] be due to myelomalacia or cord edema. /[facility] Workstation ID: [id number] [facility] MR CERVICAL SPINE WITHOUT CONTRAST EXAMINATION: MR [...] be due to myelomalacia or cord edema. /[facility] Workstation ID: [id number] Dictated by: RONALD MCCRAY on ThuFebruary 03, 2019 10:34:16 AM EDT Transcribed by: FELICITY DE JESUS on ThuFebruary 03, 2019 10:58:51 AM EDT Finalized by: RONALD MCCRAY on ThuFebruary 03, 2019 10:59:35 AM EDT [facility] Comment on above: Order Comment: Reaso n [...] GROWTH 48 DAYS Report Status FINAL 10/11/2018 [facility] Comment on above: Performed By: #### T ROPI #### [address] [address] Cult,Mycobacteria Specimen Description .SPINE .TISSUE T4 LAMINA Special Requests NOT REPORTED Direct Exam NO ACID FAST BACILLI SEEN (DIRECT SMEAR) Culture NO GROWTH 48 DAYS Report Status FINAL 10/11/2018 [facility] Comment on above: Performed By: #### L ACWB #### [facility] [place] [address] [place] [address] Cult,Funguson 09-27-2018 Cult,Fungus Specimen Description .TISSUE EPIDURAL TISSUE Special Requests NOT REPORTED Culture NO GROWTH 34 DAYS Report Status FINAL 09/27/2018 [facility] Comment on above: Performed By: #### L ACWB #### [facility] [place] [address] [place] [address] Cult,Fungus Specimen Description .SPINE .TISSUE T4 LAMINA Special Requests NOT REPORTED Culture NO GROWTH 34 DAYS Report Status FINAL 09/27/2018 [facility] Comment on above: Performed By: #### L ACWB #### [facility] [place] [address] [place] [address] BUNon 09-23-2018 Urea nitrogen mass conc 20 mg/dL Normal 6- [facility] Comment on above: Performed By: #### 2 [id number] ####[facility] VenEyqf4240 [place] [address] Creatinineon 09-23-2018 Creatinine mass conc 1.3 mg/dL High 0.5-1.1 [facility] Comment on above: Performed By: #### 2 [id number] ####[facility] Zsamtjif9080 [place] [address] eGFRon 09-23-2018 eGFR AA 54 mL/min/1.73 m2 Normal [facility] Comment on above: Order Comment: Order added by Discern Expert. Performed By: #### 2 [id number] ####[facility] Pjwysdtr5461 [place] [address] GFR/1.73 sq M predicted among non-blacks MDRD vol rate/area (S/P/Bld) 45 mL/min/1.73 m2 Normal [facility] Comment on above: Order Comment: Order added by Discern Expert. Performed By: #### 2 [id number] ####[facility] Ycuncaom8736 [place] [address] Auto Diffon 09-20-2018 Basophils Auto #/vol (Bld) 0.0 E3/mcL Normal 0.0-0.2 [facility] Comment on above: Order Comment: Order Added by Nicole Expert. Performed By: #### 2 [id number] ####[facility] XeyKepo0896 [place] [address] Basophils/100 WBC Auto (Bld) 1.1 % Normal 0.0-2.0 [facility] Comment on above: Order Comment: Order Added by Discern Expert. Performed By: #### 2 [id number] ####[facility] VcoPjtc0620 [place] [address] Eos Absolute 0.0 E3/mcL Normal 0.0-0.7 [facility] Comment on above: Order Comment: Order Added by Nicole Expert. Performed By: #### 2 [id number] ####[facility] KilAnsl[address] [place] [address] Eosinophils/100 WBC Auto (Bld) 0.3 % Normal 0.0-11.0 [facility] Comment on above: Order Comment: Order Added by Discern Expert. Performed By: #### 2 [id number] ####OVIDIO[facility]rock AvalosIwqHvwc1210 [place] [address] Lymphocytes Auto #/vol (Bld) 1.2 E3/mcL Normal 1.2-3.4 [facility] Comment on above: Order Comment: Order Added by Discern Expert. Performed By: #### 2 [id number] ####[facility] Valleo[address]25 [place] [address] Lymphocytes/100 WBC Auto (Bld) 30.6 % Normal 20.0-55.0 [facility] Comment on above: Order Comment: Order Added by Discern Expert. Performed By: #### 2 [id number] ####[facility]IO AvalosRqgQahd7466 [place] [address] Braxton Absolute 0.4 E3/mcL Normal 0.0-0.7 [facility] Comment on above: Order Comment: Order Added by Nicole Expert. Performed By: #### 2 [id number] ####[facility] [address] [place] [address] Monocytes/100 WBC Auto (Bld) 10.2 % High 0.0-10.0 [facility] Comment on above: Order Comment: Order Added by Discern Expert. Performed By: #### 2 858832 ####[facility] [address] [place] [address] Neutro Absolute 2.3 E3/mcL Normal 1.4-6.5 [facility] Comment on above: Order Comment: Order Added by Nicole Expert. Performed By: #### 2 873792 ####[facility] [address] [place] [address] Neutro Auto 57.8 % Normal 37.0-75.0 [facility] Comment on above: Order Comment: Order Added by Discern Expert. Performed By: #### 2 [id number] ####[facility] [address] [place] [address] CBC w/ Auto Diffon 8 Erythrocyte distribution width Auto Ratio (RBC) 19.9 % High 11.5-14.5 [facility] Comment on above: Performed By: #### 2 [id number] ####[facility] [address] [place] [address] Hematocrit Auto Volume Fraction (Bld) 26.5 % Low 36.0-48.0 [facility] Comment on above: Performed By: #### 2 209133 ####[address] A[address]osNxvPlqk0151 [place] [address] Hemoglobin mass conc (Bld) 8.7 g/dL Low 12.0-16.0 [facility] Comment on above: Performed By: #### 2 856058 ####[facility] AvalosXtmZgzp4410 [place] [address] MCH Auto Entitic mass (RBC) 29.6 pg Normal 27.0-31.0 [facility] Comment on above: Performed By: #### 2 [id number] ####[facility] AvalosJdpZulm2355 [place] [address] MCHC Auto mass conc (RBC) 32.9 g/dL Low 33.0-37.0 [facility] Comment on above: Performed By: #### 2 451681 ####[facility] AvalosZaoVpwv3486 [place] [address] MCV Auto Entitic volume (RBC) 89.8 fL Normal 78.0-100.0 [facility] Comment on above: Performed By: #### 2 113383 ####OVID[facility] PxtXooc9114 [place] [address] Platelet mean volume Auto Entitic volume (Bld) 10.5 fL Normal 7.4-11.0 [facility] Comment on above: Performed By: #### 2 133851 ####OVID[facility] AbwBsdz7569 [place] [address] Platelets Auto #/vol (Bld) 117 E3/mcL Low 130-400 [facility] Comment on above: Performed By: #### 2 [id number] ####OVID[facility] DhkJvbs8415 [place] [address] RBC Auto #/vol (Bld) 2.95 E6/mcL Low 3.90-5.40 [facility] Comment on above: Performed By: #### 2 589041 ####[facility] BmsOvgx4130 [place] [address] WBC Auto #/vol (Bld) 4.0 E3/mcL Normal 3.6-11.0 [facility] Comment on above: Performed By: #### 2 174714 ####OVID[facility] SliBccj6750 [place] [address] CRPon 09-20-2018 CRP mass conc 0.83 mg/dL Normal 0.00-1.00 [facility] Comment on above: Performed By: #### 2 [id number] ####OVID[facility] GbiQmhw1960 [place] [address] Morphon 09-20-2018 Anisocytosis Auto Ql (Bld) 1+ Normal [facility] Comment on above: Order Comment: Order Added by Discern Expert. Performed By: #### 1 [id number] ####OVIDIO NaaQcic0959 [place] 1413005 Hypochromasia 1+ Normal [facility] Comment on above: Order Comment: Order Added by Discern Expert. Performed By: #### 1 [id number] ####OVID[facility] NthTdpj3400 [place] 1413005 RBC morphology finding Nom (Bld) SEE MORPHOLOGY Normal [facility] Comment on above: Order Comment: Order Added by Discern Expert. Performed By: #### 1 [id number] ####OVIDIO OqcJpzl4886 [place] [address] Sed Rate Automatedon 018 Sed Rate Automated 15 mm/hr Normal [facility] Comment on above: Result Comment: AGE- SPECIFIC REFERENCE RANGES FOR SEDIMENTATION RATE AUTOMATED REFERENCE RANGE - MM/HR AGE MEN WOMEN 0-2 0-2 - PUBERTY 3-13 3-13 PUBERTY - 50 YRS 0-15 0-20 > 50 YRS 0-20 0-30 Performed By: #### 1 [id number] ####OVIDIO Hematology Manual Wkitobkksy4292 [place] [address] zzplt morphon 09-20-2018 Platelet morphology finding Nom (Bld) NORMAL Normal [facility] Comment on above: Performed By: #### 9 [id number] ####[facility] ImgFlka7740 [place] [address] Platelets Auto #/vol (Bld) NORMAL Normal [facility] Comment on above: Performed By: #### 9 [id number] ####OVIDIO CftNazs5557 [place] [address] BLOOD UREA NITROGENon 2017 Urea nitrogen mass conc (Bld) 19 mg/dL Normal 7-20 [facility] Comment on above: Performed By: #### A CBC, ESR, BUN, CREAT, CREACT, FX ####Testing performed at [address] [address] C REACTIVE PROTEINon 018 CRP mass conc 18.5 mg/L High 0-10.0 [facility] Comment on above: Performed By: #### A CBC, ESR, BUN, CREAT, CREACT, FX ####Testing performed at [address] [address] CBCon 09-13-2018 ABSOLUTE BAS 0.1 X10 Normal [facility] Comment on above: Performed By: #### A CBC, ESR, BUN, CREAT, CREACT, FX ####Testing performed at [address] [address] ABSOLUTE EOS 0.20 X10 Normal [facility] Comment on above: Performed By: #### A CBC, ESR, BUN, CREAT, CREACT, FX ####Testing performed at [address] [address] ABSOLUTE NEUTROPHIL COUNT 2.5 x10 Normal 1.0-7.0 [facility] Comment on above: Performed By: #### A CBC, ESR, BUN, CREAT, CREACT, FX ####Testing performed at [address] [address] Basophils/100 WBC Auto (Bld) 1.4 % Normal 0.0-2.0 [facility] Comment on above: Performed By: #### A CBC, ESR, BUN, CREAT, CREACT, FX ####Testing performed at [address] [address] DTYPE AUTO DIFF Normal [facility] Comment on above: Performed By: #### A CBC, ESR, BUN, CREAT, CREACT, FX ####Testing performed at [address] [address] Eosinophils/100 WBC Auto (Bld) 3.5 % Normal 0.0-11.0 [facility] Comment on above: Performed By: #### A CBC, ESR, BUN, CREAT, CREACT, FX ####Testing performed at [address] [address] Lymphocytes Auto #/vol (Bld) 1.10 X10 Normal [facility] Comment on above: Performed By: #### A CBC, ESR, BUN, CREAT, CREACT, FX ####Testing performed at [address] [address] Lymphocytes/100 WBC Auto (Bld) 27.0 % Normal 20.0-55.0 [facility] Comment on above: Performed By: #### A CBC, ESR, BUN, CREAT, CREACT, FX ####Testing performed at [address] [address] Monocytes Auto #/vol (Bld) 0.4 X10 Normal [facility] Comment on above: Performed By: #### A CBC, ESR, BUN, CREAT, CREACT, FX ####Testing performed at [address] [address] Monocytes/100 WBC Auto (Bld) 9.4 % Normal 0.0-10.0 [facility] Comment on above: Performed By: #### A CBC, ESR, BUN, CREAT, CREACT, FX ####Testing performed at [address] [address] Neutrophils/100 WBC Auto (Bld) 58.7 % Normal 37.0-75.0 [facility] Comment on above: Performed By: #### A CBC, ESR, BUN, CREAT, CREACT, FX ####Testing performed at [address] [address] Erythrocyte distribution width Auto Ratio (RBC) 17.6 % High 11.5-14.5 [facility] Comment on above: Performed By: #### A CBC, ESR, BUN, CREAT, CREACT, FX ####Testing performed at [address] [address] Hematocrit Auto Volume Fraction (Bld) 26.2 % Low 36.0-48.0 [facility] Comment on above: Performed By: #### A CBC, ESR, BUN, CREAT, CREACT, FX ####[place] [address] Hemoglobin mass conc (Bld) 8.8 g/dL Low 12.0-16.0 [facility] Comment on above: Performed By: #### A CBC, ESR, BUN, CREAT, CREACT, FX ####[place] [address] MCH Auto Entitic mass (RBC) 29.3 pg Normal 26.0-35.0 [facility] Comment on above: Performed By: #### A CBC, ESR, BUN, CREAT, CREACT, FX ####[place] [address] MCHC Auto mass conc (RBC) 33.7 g/dL Normal 27.0-37.0 [facility] Comment on above: Performed By: #### A CBC, ESR, BUN, CREAT, CREACT, FX ####[place] [address] MCV Auto Entitic volume (RBC) 86.9 fL Normal 80.0-100.0 [facility] Comment on above: Performed By: #### A CBC, ESR, BUN, CREAT, CREACT, FX ####[place] [address] Platelet mean volume Auto Entitic volume (Bld) 10.1 fL Normal 7.4-11.0 [facility] Comment on above: Performed By: #### A CBC, ESR, BUN, CREAT, CREACT, FX ####[place] [address] Platelets Auto #/vol (Bld) 130 /cmm Normal 130.0-400.0 [facility] Comment on above: Performed By: #### A CBC, ESR, BUN, CREAT, CREACT, FX ####[place] [address] RBC Auto #/vol (Bld) 3.01 /cmm Low 4.0-5.4 [facility] Comment on above: Performed By: #### A CBC, ESR, BUN, CREAT, CREACT, FX ####[place] [address] WBC Auto #/vol (Bld) 4.2 /cmm Normal 3.6-11.0 [facility] Comment on above: Performed By: #### A CBC, ESR, BUN, CREAT, CREACT, FX ####[place] [address] CREATININE,SERUMon 8 Creatinine mass conc 1.5 mg/dL High 0.52-1.04 [facility] Comment on above: Performed By: #### A CBC, ESR, BUN, CREAT, CREACT, FX ####[place] [address] EST. GFR, 50 ml/min/1.73sq.m [facility] Comment on above: Performed By: #### A CBC, ESR, BUN, CREAT, CREACT, FX ####[place] [address] EST. GFR,Non 41 ml/min/1.73sq.m [facility] Comment on above: Performed By: #### A CBC, ESR, BUN, CREAT, CREACT, FX ####[place] [address] GFR/1.73 sq M predicted among non-blacks MDRD vol rate/area (S/P/Bld) Average GFR for 30-39 years old = 109. [facility] Comment on above: Result Comment: Continuous Drier Operator vasu Kidney disease, GFR = <60.Kidney failure, GFR = <15.The GFR estimate is not adjusted for extreme body surface area or acute process, nor has it been validated for women or ethnic groups other than and . Performed By: #### A CBC, ESR, BUN, CREAT, CREACT, FX ####[place] [address] ESRon 12-10-2018 ESR Velocity (Bld) 49 mm/h High 0-15 [facility] Comment on above: Performed By: #### A CBC, ESR, BUN, CREAT, CREACT, FX ####Testing performed at [address] [address] FAX REQUESTon 09-13-2018 FAX TO FAX TO DR DEVAN Gutiérrez T [phone] [facility] AT [phone] [facility] Comment on above: Performed By: #### P HY, BUN, CREAT, FX ####Testing performed at [address] [address] FAX REQUESTon 09-06-2018 FAX TO [phone] [facility] Comment on above: Performed By: #### F X ####Testing performed at [place] [id number] BLOOD UREA NITROGENon 2017 Urea nitrogen mass conc (Bld) 21 mg/dL High 7-20 [facility] Comment on above: Performed By: #### P HY, BUN, CREAT, FX ####Testing performed at [place] [id number] CREATININE,SERUMon 8 Creatinine mass conc 1.4 mg/dL High 0.52-1.04 [facility] Comment on above: Performed By: #### P HY, BUN, CREAT, FX ####Testing performed at [place] [id number] EST. GFR, 54 ml/min/1.73sq.m [facility] Comment on above: Performed By: #### P HY, BUN, CREAT, FX ####Testing performed at [place] [id number] EST. GFR,Non 44 ml/min/1.73sq.m [facility] Comment on above: Performed By: #### P HY, BUN, CREAT, FX ####Testing performed at [place] [id number] GFR/1.73 sq M predicted among non-blacks MDRD vol rate/area (S/P/Bld) Average GFR for 30-39 years old = 109. [facility] Comment on above: Result Comment: Continuous Drier Operator vasu Kidney disease, GFR = <60.Kidney failure, GFR = <15.The GFR estimate is not adjusted for extreme body surface area or acute process, nor has it been validated for women or ethnic groups other than and . Performed By: #### P HY, BUN, CREAT, FX ####Testing performed at [address] [address] FAX REQUESTon 08-31-2018 FAX TO [phone] [facility] Comment on above: Performed By: #### P HY, BUN, CREAT, FX ####Testing performed at [address] [address] GAL NEW PHYSICIANon 08-31-20 18 [facility] PHYSICIAN DEVAN UP [facility] Comment on above: Performed By: #### P HY, BUN, CREAT, FX ####Testing performed at [address] [address] BUNon 08-27-2018 Urea nitrogen mass conc 24 mg/dL High 03-27 [facility] Comment on above: Performed By: #### 2 [id number] ####OVIDIO Eumuwndq4263 [place] [address] Creatinineon 08-27-2018 Creatinine mass conc 1.6 mg/dL High 0.5-1.1 [facility] Comment on above: Performed By: #### 2 [id number] ####OVIDIO Agyuetiy4257 [place] [address] eGFRon 08-27-2018 eGFR AA 43 mL/min/1.73 m2 [facility] Comment on above: Order Comment: Order added by Nicole Expert. Performed By: #### 1 [id number] ####OVIDIO AfhGoqo2892 [place] [address] GFR/1.73 sq M predicted among non-blacks MDRD vol rate/area (S/P/Bld) 36 mL/min/1.[address] [facility] Comment on above: Order Comment: Order added by Discern Expert. Performed By: #### 1 [id number] ####OVIDIO HsjSqdz6611 [place] [address] Cult,Tissueon 08-26-2018 Cult,Tissue Specimen Description .TISSUE EPIDURAL [...] REPORTED Trimethoprim/Sulfa <=10 SUSCEPTIBLE Vancomycin <=0.5 SUSCEPTIBLE [facility] Comment on above: Performed By: #### L ACWB #### [employer] [address] [place] [address] Cult,Tissue Specimen Description .SPINE .TISSUE T4 LAMINA [...] REPORTED Trimethoprim/Sulfa <=10 SUSCEPTIBLE Vancomycin <=0.5 SUSCEPTIBLE [facility] Comment on above: Performed By: #### L ACWB #### [employer] [address] [place], [place] [id number] Basic Metabolic Profon 08-25 (cont.) [facility] Comment on above: Result Comment: Aver age GFR for 30-39 years old: 107 mL/min/1.73sq m Chronic Kidney Disease: <60 mL/min/1.73sq m Kidney failure: <15 mL/min/1.73sq m eGFR calculated using average adult body mass. Additional eGFR calculator available at: http://www.[employer]/multiple_crcl_2012.htm Performed By: #### L ACWB #### [facility] [address] [place] [address] Anion gap molar conc 14 mmol/L Normal 9-17 [facility] Comment on above: Performed By: #### L ACWB #### [facility] [place] [address] [place] [address] Calcium mass conc 9.1 mg/dL Normal 8.6-10.4 [facility] Comment on above: Performed By: #### L ACWB #### [facility] [place] [address] [place] [address] Chloride molar conc 96 mmol/L Low 98-107 [facility] Comment on above: Performed By: #### L ACWB #### [facility] [address] [place] [address] CO2 molar conc 23 mmol/L Normal 20-31 [facility] Comment on above: Performed By: #### L ACWB #### [facility] [place] [address] [place] [address] Creatinine mass conc 1.52 mg/dL High 0.50-0.90 [facility] Comment on above: Performed By: #### L ACWB #### [facility] [address] [place] [address] GFR, Amer 46 mL/min Low >60 [facility] Comment on above: Performed By: #### L ACWB #### [facility] [place] [address] [place] [address] GFR,non Amer 38 mL/min Low >60 [facility] Comment on above: Performed By: #### L ACWB #### [facility] [place] [address] [place] [address] Glucose mass conc 95 mg/dL Normal 70-99 [facility] Comment on above: Performed By: #### L ACWB #### [facility] [place] [address] [place] [address] Potassium molar conc 4.5 mmol/L Normal 3.7-5.3 [facility] Comment on above: Performed By: #### L ACWB #### [facility] [place] [address] [place] [address] Sodium molar conc 133 mmol/L Low 135-144 [facility] Comment on above: Performed By: #### L ACWB #### [facility] [place] [address] [place] [address] 75941 Urea nitrogen mass conc 43 mg/dL High 6-20 [facility] Comment on above: Performed By: #### L ACWB #### [facility] [place] [address] [place] [address] 40475 BUN/CRE Ratio NOT REPORTED Normal 9-20 [facility] Comment on above: Performed By: #### L ACWB #### [facility] [place] [address] [place] [address] 98109 Staging: NOT REPORTED Normal [facility] Comment on above: Performed By: #### L ACWB #### [facility] [place] [address] [place] [address] 22253 CBC with Diffon 08-25-2018 Abs. Basophil 0.07 k/uL Normal 0.00-0.20 [facility] Comment on above: Performed By: #### L ACWB #### [facility] [place] [address] [place] [address] 40168 Abs.Imm.Granulocyte 0.08 k/uL Normal 0.00-0.30 [facility] Comment on above: Performed By: #### L ACWB #### [address] [address] Abs.Neutrophil (Seg) 5.77 k/uL Normal 1.50-8.10 [facility] Comment on above: Performed By: #### L ACWB #### [address] [address] Basophils/100 WBC (Bld) 1 % Normal 0-2 [facility] Comment on above: Performed By: #### L ACWB #### [address] [address] Eosinophils #/vol (Bld) 0.12 10*3/uL Normal 0.00-0.44 [facility] Comment on above: Performed By: #### L ACWB #### [address] [address] Eosinophils/100 WBC (Bld) 1 % Normal 1-4 [facility] Comment on above: Performed By: #### L ACWB #### [address] [address]66 Immature granulocytes #/vol (Bld) 1 % High 0 [facility] Comment on above: Performed By: #### L ACWB #### [address] [address] Lymphocytes #/vol (Bld) 1.83 10*3/uL Normal 1.10-3.70 [facility] Comment on above: Performed By: #### L ACWB #### [address] [address] Lymphocytes/100 WBC (Bld) 21 % Low 24-43 [facility] Comment on above: Performed By: #### L ACWB #### [address] [address] Monocytes #/vol (Bld) 0.92 10*3/uL Normal 0.10-1.20 [facility] Comment on above: Performed By: #### L ACWB #### [address] [address] Monocytes/100 WBC (Bld) 11 % Normal 3-12 [facility] Comment on above: Performed By: #### L ACWB #### [address] 34941 Neutrophil (Seg) 66 % High 36-65 [facility] Comment on above: Performed By: #### L ACWB #### [address] [address] Erythrocyte distribution width Ratio (RBC) 14.6 % High 11.8-14.4 [facility] Comment on above: Performed By: #### L ACWB #### [address] 96420 Hematocrit Volume Fraction (Bld) 32.6 % Low 36.3-47.1 [facility] Comment on above: Performed By: #### L ACWB #### [address] 077[address] Hemoglobin mass conc (Bld) 10.0 g/dL Low 11.9-15.1 [facility] Comment on above: Performed By: #### L ACWB #### [address] [address]55 MCH Entitic mass (RBC) 28.2 pg Normal 25.2-33.5 [facility] Comment on above: Performed By: #### L ACWB #### [address] [address] MCHC mass conc (RBC) 30.7 g/dL Normal 28.4-34.8 [facility] Comment on above: Performed By: #### L ACWB #### [address] 81973 MCV Entitic volume (RBC) 91.8 fL Normal 82.6-102.9 [facility] Comment on above: Performed By: #### L ACWB #### [address] [address]49 NRBC Automated 0.0 per 100 WBC Normal 0.0 [facility] Comment on above: Performed By: #### L ACWB #### [address] [address] Platelet mean volume Entitic volume (Bld) 10.4 fL Normal 8.1-13.5 [facility] Comment on above: Performed By: #### L ACWB #### [address] 8[address] Platelets #/vol (Bld) 292 10*3/uL Normal 138-453 [facility] Comment on above: Performed By: #### L ACWB #### [address] [address] RBC #/vol (Bld) 3.55 10*6/uL Low 3.95-5.11 [facility] Comment on above: Performed By: #### L ACWB #### [facility] [place] [address] [place] [address] 60304 RBC morphology finding Nom (Bld) ANISOCYTOSIS PRESENT Normal [facility] Comment on above: Performed By: #### L ACWB #### [address] [address] WBC #/vol (Bld) 8.8 10*3/uL Normal 3.5-11.3 [facility] Comment on above: Performed By: #### L ACWB #### [address] 9[address] Auto Diff Performed NOT REPORTED Normal [facility] Comment on above: Performed By: #### L ACWB #### [address] [address] Platelets #/vol (Bld) NOT REPORTED Normal [facility] Comment on above: Performed By: #### L ACWB #### [address] [address]402 WBC Morphology NOT REPORTED Normal [facility] Comment on above: Performed By: #### L ACWB #### [address] [address] Fungi,Direct Examon 08-25-20 18 Fungi,Direct Exam Specimen Description .SPINE .TISSUE T4 LAMINA Special Requests NOT REPORTED Direct Exam NO FUNGAL ELEMENTS SEEN Report Status FINAL 08/25/2018 Normal [facility] Comment on above: Performed By: #### L ACWB #### [address] [address] Magnesiumon 08-25-2018 Magnesium mass conc 2.4 mg/dL Normal 1.6-2.6 [facility] Comment on above: Performed By: #### L ACWB #### [address] [address] Procalcitoninon 08-25-2018 Protein mass conc 0.13 ng/mL High <0.09 [facility] Comment on above: Result Comment: Suspected Sepsis: [...] entered into the Change in Procalcitonin Calculator (www.kdsvgd-kjr-fecwwaihww.TheBlogTV) to determine the patient's Mortality Risk Prognosis Performed By: #### L ACWB #### [address] [id number] Cult,Aerobe/Anaerobeon 08-24 Cult,Aerobe/Anaerobe Specimen Descriptio n .SPINE Special Requests NOT REPORTED Direct Exam DUPLICATE ORDER SEE RESULTS FOR TISSUE CULTURE Culture NOT REPORTED Report Status FINAL 08/24/2018 [facility] Comment on above: Performed By: #### S PAG #### [address] [id number] Cult,Aerobe/Anaerobe Specimen Descriptio n .SPINE Special Requests NOT REPORTED Direct Exam DUPLICATE ORDER SEE RESUULTS FOR TISSUE CULTURE Culture NOT REPORTED Report Status FINAL 08/24/2018 [facility] Comment on above: Performed By: #### S PAG #### [address] [id number] FLUORO FOR SURGICAL PROCEDUR ESon 08-24-2018 FLUORO FOR SURGICAL PROCEDURES Radiology exam is complete. No Radiologist dictation. Please follow up with ordering provider. Final result Normal [facility] OPERATIVE REPORTon 8 OPERATIVE REPORT [address] [address] OPERATIVE REPORT PATIENT NAME: CELINA GASPAR : 1980 MED REC NO: [id number] ROOM: 0431 ACCOUNT NO: [id number] ADMIT DATE: 08/15/2018 PROVIDER: Lita Mccray MD DATE OF PROCEDURE: 08/23/2018 SURGEON: Lita Mccray MD GREEN MARKETER: Eliel Larios DO PREOPERATIVE DIAGNOSIS: Epidural abscess, [...] room in satisfactory condition. LITA MCCRAY MD CAT/[id number] Doc#: [id number] CC: Lita Mccray MD Normal [facility] Procalcitoninon 08-24-2018 Protein mass conc 0.16 ng/mL High <0.09 [facility] Comment on above: Result Comment: Suspected Sepsis: [...] entered into the Change in Procalcitonin Calculator (www.wwswid-sbb-vyxwhdkchv.com) to determine the patient's Mortality Risk Prognosis Performed By: #### S PAG #### [facility] [place] [address] [place] [address] 84074 Basic Metab w/rfx MGon 08-23 (cont.) Normal [facility] Comment on above: Result Comment: Aver age GFR for 30-39 years old: 107 mL/min/1.73sq m Chronic Kidney Disease: <60 mL/min/1.73sq m Kidney failure: <15 mL/min/1.73sq m eGFR calculated using average adult body mass. Additional eGFR calculator available at: http://www.Traction.TheBlogTV/multiple_crcl_2011.htm Performed By: #### S PAG #### [facility] [place] [address] [place] [address] 78998 Anion gap molar conc 14 mmol/L Normal 9-17 [facility] Comment on above: Performed By: #### S PAG #### [facility] [place] [address] [place] [address] 83334 Calcium mass conc 9.9 mg/dL Normal 8.6-10.4 [facility] Comment on above: Performed By: #### S PAG #### [facility] [place] [address] [place] [address] 29309 Chloride molar conc 99 mmol/L Normal 98-107 [facility] Comment on above: Performed By: #### S PAG #### [facility] [place] [address] [place] [address] 58264 CO2 molar conc 26 mmol/L Normal 20-31 [facility] Comment on above: Performed By: #### S PAG #### [facility] [place] [address] [place] [address] 72793 Creatinine mass conc 1.42 mg/dL High 0.50-0.90 [facility] Comment on above: Performed By: #### S PAG #### [facility] [place] [address] [place] [address] 61621 GFR, Amer 50 mL/min Low >60 [facility] Comment on above: Performed By: #### S PAG #### [facility] [place] [address] [place] [address] 47970 GFR,non Amer 41 mL/min Low >60 [facility] Comment on above: Performed By: #### S PAG #### [facility] [place] [address] [place] [address] 50547 Glucose mass conc 95 mg/dL Normal 70-99 [facility] Comment on above: Performed By: #### S PAG #### [facility] [place] [address] [place] [address] 55529 Potassium molar conc 4.9 mmol/L Normal 3.7-5.3 [facility] Comment on above: Result Comment: SPEC IMEN SLIGHTLY HEMOLYZED, RESULTS MAY BE ADVERSELY AFFECTED. Performed By: #### S PAG #### [facility] [place] [address] [place] [address] 98633 Sodium molar conc 139 mmol/L Normal 135-144 [facility] Comment on above: Performed By: #### S PAG #### [facility] [place] [address] [place] [address] 95830 Urea nitrogen mass conc 31 mg/dL High 6-20 [facility] Comment on above: Performed By: #### S PAG #### [facility] [place] [address] [place] [address] 52766 BUN/CRE Ratio NOT REPORTED Normal 9-20 [facility] Comment on above: Performed By: #### S PAG #### [facility] [place] [address] [place] [address] 24243 Staging: NOT REPORTED Normal [facility] Comment on above: Performed By: #### S PAG #### [facility] [place] [address] [place] [address] 72322 CBC with Diffon 08-23-2018 Abs. Basophil 0.06 k/uL Normal 0.00-0.20 [facility] Comment on above: Performed By: #### S PAG #### [address] [address] Abs.Imm.Granulocyte 0.22 k/uL Normal 0.00-0.30 [facility] Comment on above: Performed By: #### S PAG #### [address] [address] Abs.Neutrophil (Seg) 4.43 k/uL Normal 1.50-8.10 [facility] Comment on above: Performed By: #### S PAG #### [address] [address] Basophils/100 WBC (Bld) 1 % Normal 0-2 [facility] Comment on above: Performed By: #### S PAG #### [address] [address]89 Eosinophils #/vol (Bld) 0.15 10*3/uL Normal 0.00-0.44 [facility] Comment on above: Performed By: #### S PAG #### [address] [address] Eosinophils/100 WBC (Bld) 2 % Normal 1-4 [facility] Comment on above: Performed By: #### S PAG #### [address] [address] Erythrocyte distribution width Ratio (RBC) 14.4 % Normal 11.8-14.4 [facility] Comment on above: Performed By: #### S PAG #### [address] [address] Hematocrit Volume Fraction (Bld) 33.2 % Low 36.3-47.1 [facility] Comment on above: Performed By: #### S PAG #### [address] 82531 Hemoglobin mass conc (Bld) 10.4 g/dL Low 11.9-15.1 [facility] Comment on above: Performed By: #### S PAG #### [address] [address] Immature granulocytes #/vol (Bld) 3 % High 0 [facility] Comment on above: Performed By: #### S PAG #### [address] 9[address] Lymphocytes #/vol (Bld) 2.22 10*3/uL Normal 1.10-3.70 [facility] Comment on above: Performed By: #### S PAG #### [address] [address] Lymphocytes/100 WBC (Bld) 29 % Normal 24-43 [facility] Comment on above: Performed By: #### S PAG #### [address] [address] MCH Entitic mass (RBC) 27.7 pg Normal 25.2-33.5 [facility] Comment on above: Performed By: #### S PAG #### [address] [address]205 MCHC mass conc (RBC) 31.3 g/dL Normal 28.4-34.8 [facility] Comment on above: Performed By: #### S PAG #### [address] [address]682 MCV Entitic volume (RBC) 88.3 fL Normal 82.6-102.9 [facility] Comment on above: Performed By: #### S PAG #### [address] [address] Monocytes #/vol (Bld) 0.63 10*3/uL Normal 0.10-1.20 [facility] Comment on above: Performed By: #### S PAG #### [facility] [place] [address] [place] [address] 25869 Monocytes/100 WBC (Bld) 8 % Normal 3-12 [facility] Comment on above: Performed By: #### S PAG #### [facility] [place] [address] [place] [address] 39681 Neutrophil (Seg) 57 % Normal 36-65 [facility] Comment on above: Performed By: #### S PAG #### [address] [address] NRBC Automated 0.0 per 100 WBC Normal 0.0 [facility] Comment on above: Performed By: #### S PAG #### [address] [address] Platelets #/vol (Bld) See Reflexed IPF Result Normal 138-453 [facility] Comment on above: Performed By: #### S PAG #### [facility] [place] [address] [place] [address] 59145 RBC #/vol (Bld) 3.76 10*6/uL Low 3.95-5.11 [facility] Comment on above: Performed By: #### S PAG #### [facility] [place] [address] [place] [address] 62889 WBC #/vol (Bld) 7.7 10*3/uL Normal 3.5-11.3 [facility] Comment on above: Performed By: #### S PAG #### [address] [address] Auto Diff Performed NOT REPORTED Normal [facility] Comment on above: Performed By: #### S PAG #### [address] [address] Platelet mean volume Entitic volume (Bld) NOT REPORTED Normal 8.1-13.5 [facility] Comment on above: Performed By: #### S PAG #### [address] [address] Platelets #/vol (Bld) NOT REPORTED Normal [facility] Comment on above: Performed By: #### S PAG #### [address] [address]807 RBC morphology finding Nom (Bld) NOT REPORTED Normal [facility] Comment on above: Performed By: #### S PAG #### [address] [address] WBC Morphology NOT REPORTED Normal [facility] Comment on above: Performed By: #### S PAG #### [address] [address] Cult,Bloodon 08-23-2018 Cult,Blood Specimen Description .BLOOD Special Requests L AC 6ML Culture NO GROWTH 6 DAYS Report Status FINAL 08/23/2018 [facility] Comment on above: Performed By: #### S PAG #### [address] [address] Cult,Blood Specimen Description .BLOOD Special Requests L FOREARM 6ML Culture NO GROWTH 6 DAYS Report Status FINAL 08/23/2018 [facility] Comment on above: Performed By: #### S PAG #### [address] [address] PLT, Immature Fract.on 08-23 Platelet, Fluoresc. 113 k/uL Low 138-453 [facility] Comment on above: Performed By: #### S PAG #### [address] [address] PLT, Immature Fract. 3.7 % Normal 1.1-10.3 [facility] Comment on above: Performed By: #### S PAG #### [address] [address] CBC with Diffon 08-22-2018 Abs. Basophil 0.00 k/uL Normal 0.0-0.2 [facility] Comment on above: Performed By: #### U LAG #### [address] [address] Abs.Imm.Granulocyte 0.30 k/uL Normal 0.00-0.30 [facility] Comment on above: Performed By: #### U LAG #### [address] [address] Abs.Neutrophil (Seg) 4.87 k/uL Normal 1.8-7.7 [facility] Comment on above: Performed By: #### U LAG #### [address] [address]702 Basophils/100 WBC (Bld) 0 % Normal 0-2 [facility] Comment on above: Performed By: #### U LAG #### [address] 140[address] Eosinophils #/vol (Bld) 0.00 10*3/uL Normal 0.0-0.4 [facility] Comment on above: Performed By: #### U LAG #### [address] [address] Eosinophils/100 WBC (Bld) 0 % Low 1-4 [facility] Comment on above: Performed By: #### U LAG #### [address] 816[address] Immature granulocytes #/vol (Bld) 4 % High 0 [facility] Comment on above: Performed By: #### U LAG #### [address] 068[address] Lymphocytes #/vol (Bld) 1.88 10*3/uL Normal 1.0-4.8 [facility] Comment on above: Performed By: #### U LAG #### [address] [address] Lymphocytes/100 WBC (Bld) 25 % Normal 24-44 [facility] Comment on above: Performed By: #### U LAG #### [address] [address] Monocytes #/vol (Bld) 0.45 10*3/uL Normal 0.1-0.8 [facility] Comment on above: Performed By: #### U LAG #### [address] [address] Monocytes/100 WBC (Bld) 6 % Normal 1-7 [facility] Comment on above: Performed By: #### U LAG #### [address] [address] Morphology Interp Rehan (Bld) ANISOCYTOSIS PRESENT Normal [facility] Comment on above: Performed By: #### U LAG #### [address] [address] Neutrophil (Seg) 65 % Normal 36-66 [facility] Comment on above: Performed By: #### U LAG #### [address] [address] Erythrocyte distribution width Ratio (RBC) 14.5 % High 11.8-14.4 [facility] Comment on above: Performed By: #### U LAG #### [address] [address] Hematocrit Volume Fraction (Bld) 38.1 % Normal 36.3-47.1 [facility] Comment on above: Performed By: #### U LAG #### [address] [address] Hemoglobin mass conc (Bld) 11.5 g/dL Low 11.9-15.1 [facility] Comment on above: Performed By: #### U LAG #### [address] 18234 MCH Entitic mass (RBC) 28.3 pg Normal 25.2-33.5 [facility] Comment on above: Performed By: #### U LAG #### [address] [address]448 MCHC mass conc (RBC) 30.2 g/dL Normal 28.4-34.8 [facility] Comment on above: Performed By: #### U LAG #### [address] [address] MCV Entitic volume (RBC) 93.6 fL Normal 82.6-102.9 [facility] Comment on above: Performed By: #### U LAG #### [address] 9[address] NRBC Automated 0.0 per 100 WBC Normal 0.0 [facility] Comment on above: Performed By: #### U LAG #### [address] [address] Platelet mean volume Entitic volume (Bld) 10.7 fL Normal 8.1-13.5 [facility] Comment on above: Performed By: #### U LAG #### [address] [address] Platelets #/vol (Bld) 265 10*3/uL Normal 138-453 [facility] Comment on above: Performed By: #### U LAG #### [address] [address] RBC #/vol (Bld) 4.07 10*6/uL Normal 3.95-5.11 [facility] Comment on above: Performed By: #### U LAG #### [address] [address] WBC #/vol (Bld) 7.5 10*3/uL Normal 3.5-11.3 [facility] Comment on above: Performed By: #### U LAG #### [address] [address] Auto Diff Performed NOT REPORTED Normal [facility] Comment on above: Performed By: #### U LAG #### [address] [address] Platelets #/vol (Bld) NOT REPORTED Normal [facility] Comment on above: Performed By: #### U LAG #### [facility] [place] [address] [place] [address] 74627 RBC morphology finding Nom (Bld) NOT REPORTED Normal [facility] Comment on above: Performed By: #### U LAG #### [facility] [place] [address] [place] [address] WBC Morphology NOT REPORTED Normal [facility] Comment on above: Performed By: #### U LAG #### [address] [address] Comp Metabolic Pr/rfx MGon 1 10-22-2017 Albumin mass conc 3.2 g/dL Low 3.5-5.2 [facility] Comment on above: Performed By: #### U LAG #### [facility] [place] [address] [place] [address] 20195 Albumin/Globulin mass ratio 0.8 {ratio} Low 1.0-2.5 [facility] Comment on above: Performed By: #### U LAG #### [facility] [place] [facility] [place] [address] Alkaline Phos 90 U/L Normal 35-104 [facility] Comment on above: Performed By: #### U LAG #### [facility] [place] [facility] [place] [address] ALT enzyme act/vol 18 U/L Normal 5-33 [facility] Comment on above: Performed By: #### U LAG #### [facility] [place] [address] [place] [address] 23754 AST enzyme act/vol 16 U/L Normal <32 [facility] Comment on above: Performed By: #### U LAG #### [facility] [place] [address] [place] [address] 10850 Protein mass conc 7.0 g/dL Normal 6.4-8.3 [facility] Comment on above: Performed By: #### U LAG #### [address] [address] (cont.) Normal [facility] Comment on above: Result Comment: Aver age GFR for 30-39 years old: 107 mL/min/1.73sq m Chronic Kidney Disease: <60 mL/min/1.73sq m Kidney failure: <15 mL/min/1.73sq m eGFR calculated using average adult body mass. Additional eGFR calculator available at: http://www.Traction.TheBlogTV/multiple_crcl_2012.htm Performed By: #### U LAG #### [address] [address] Anion gap molar conc 15 mmol/L Normal 9-17 [facility] Comment on above: Performed By: #### U LAG #### [facility] [place] [facility] [place] [address] Bilirubin Ql (U) 0.34 mg/dL Normal 0.3-1.2 [facility] Comment on above: Performed By: #### U LAG #### [facility] [address] [place] [address] 6[address] Calcium mass conc 9.7 mg/dL Normal 8.6-10.4 [facility] Comment on above: Performed By: #### U LAG #### [employer] [address] [place] [address] 58857 Chloride molar conc 100 mmol/L Normal 98-107 [facility] Comment on above: Performed By: #### U LAG #### [facility] [place] [address] [place] [address] 67671 CO2 molar conc 24 mmol/L Normal 20-31 [facility] Comment on above: Performed By: #### U LAG #### [facility] [address] [place] [address] 42498 Creatinine mass conc 1.02 mg/dL High 0.50-0.90 [facility] Comment on above: Performed By: #### U LAG #### [employer] [address] [place] [address] 97880 GFR, Amer >60 Normal >60 [facility] Comment on above: Performed By: #### U LAG #### [employer] [address] [place] [address] 18667 GFR,non Amer >60 Normal >60 [facility] [facility] Comment on above: Performed By: #### U LAG #### [employer] [address] [place] [address] 25512 Glucose mass conc 101 mg/dL High 70-99 [facility] Comment on above: Performed By: #### U LAG #### [facility] [address] [place] [address] 70373 Potassium molar conc 4.5 mmol/L Normal 3.7-5.3 [facility] Comment on above: Performed By: #### U LAG #### [facility] [address] [place] [address] 03210 Sodium molar conc 139 mmol/L Normal 135-144 [facility] Comment on above: Performed By: #### U LAG #### [facility] [address] [place] [address] 00883 Urea nitrogen mass conc 19 mg/dL Normal - [facility] Comment on above: Performed By: #### U LAG #### [facility] [address] [place] [address] 61543 BUN/CRE Ratio NOT REPORTED Normal 06-24 [facility] Comment on above: Performed By: #### U LAG #### [facility] [address] [place] [address] 58206 Staging: NOT REPORTED Normal [facility] Comment on above: Performed By: #### U LAG #### [facility] [address] [place] [address] 15645 Magnesiumon 08-22-2018 Magnesium mass conc 2.4 mg/dL Normal 1.6-2.6 [facility] Comment on above: Performed By: #### U LAG #### [facility] [address] [place] [address] 10167 Vancomycin Troughon 08-22-20 18 Vancomycin Trough 20.2 ug/mL Critically high 10.0-20.0 [facility] Comment on above: Result Comment: High er trough serum vancomycin concentrations of 15-20 ug/mL are recommended for complicated infections such as bacteremia, endocarditis, osteomyelitis, meningitis, and hospital acquired pneumonia. ADDED ON Performed By: #### U LAG #### [facility] [address] [place] [address] 38092 Date last dose, NOT REPORTED Normal [facility] Comment on above: Performed By: #### U LAG #### [facility] [address] [place] [address] 26045 Dose amount, NOT REPORTED Normal [facility] Comment on above: Performed By: #### U LAG #### [address] [address] Time last dose, NOT REPORTED Normal [facility] Comment on above: Performed By: #### U LAG #### [address] [address] CBC with Diffon 08-21-2018 Abs. Basophil 0.08 k/uL Normal 0.00-0.20 [facility] Comment on above: Performed By: #### U LAG #### [address] 04418 Abs.Imm.Granulocyte 0.50 k/uL High 0.00-0.30 [facility] Comment on above: Performed By: #### U LAG #### [address] 73496 Abs.Neutrophil (Seg) 4.73 k/uL Normal 1.50-8.10 [facility] Comment on above: Performed By: #### U LAG #### [address] 75007 Basophils/100 WBC (Bld) 1 % Normal 0-2 [facility] Comment on above: Performed By: #### U LAG #### [address] 90[address] Eosinophils #/vol (Bld) 0.17 10*3/uL Normal 0.00-0.44 [facility] Comment on above: Performed By: #### U LAG #### [address] 33136 Eosinophils/100 WBC (Bld) 2 % Normal 1-4 [facility] Comment on above: Performed By: #### U LAG #### [address] 20774 Immature granulocytes #/vol (Bld) 6 % High 0 [facility] Comment on above: Performed By: #### U LAG #### [address] 81297 Lymphocytes #/vol (Bld) 2.24 10*3/uL Normal 1.10-3.70 [facility] Comment on above: Performed By: #### U LAG #### [address] 40197 Lymphocytes/100 WBC (Bld) 27 % Normal 24-43 [facility] Comment on above: Performed By: #### U LAG #### [address] 93548 Monocytes #/vol (Bld) 0.58 10*3/uL Normal 0.10-1.20 [facility] Comment on above: Performed By: #### U LAG #### [address] 17971 Monocytes/100 WBC (Bld) 7 % Normal 3-12 [facility] Comment on above: Performed By: #### U LAG #### [address] 78609 Morphology Interp Rehan (Bld) ANISOCYTOSIS PRESENT Normal [facility] Comment on above: Performed By: #### U LAG #### [address] 91961 Neutrophil (Seg) 57 % Normal 36-65 [facility] Comment on above: Performed By: #### U LAG #### [address] 77497 Erythrocyte distribution width Ratio (RBC) 14.6 % High 11.8-14.4 [facility] Comment on above: Performed By: #### U LAG #### [address] 63027 Hematocrit Volume Fraction (Bld) 38.5 % Normal 36.3-47.1 [facility] Comment on above: Performed By: #### U LAG #### [address] 72652 Hemoglobin mass conc (Bld) 11.5 g/dL Low 11.9-15.1 [facility] Comment on above: Performed By: #### U LAG #### [address] 39371 MCH Entitic mass (RBC) 28.2 pg Normal 25.2-33.5 [facility] Comment on above: Performed By: #### U LAG #### [address] 39806 MCHC mass conc (RBC) 29.9 g/dL Normal 28.4-34.8 [facility] Comment on above: Performed By: #### U LAG #### [address] 04852 MCV Entitic volume (RBC) 94.4 fL Normal 82.6-102.9 [facility] Comment on above: Performed By: #### U LAG #### [address] 05751 NRBC Automated 0.0 per 100 WBC Normal 0.0 [facility] Comment on above: Performed By: #### U LAG #### [address] 11937 Platelet mean volume Entitic volume (Bld) 10.5 fL Normal 8.1-13.5 [facility] Comment on above: Performed By: #### U LAG #### [address] [place] [address] Platelets #/vol (Bld) 264 10*3/uL Normal 138-453 [facility] Comment on above: Performed By: #### U LAG #### [address] 57340 RBC #/vol (Bld) 4.08 10*6/uL Normal 3.95-5.11 [facility] Comment on above: Performed By: #### U LAG #### [facility] [address] [place] [address] 47890 WBC #/vol (Bld) 8.3 10*3/uL Normal 3.5-11.3 [facility] Comment on above: Performed By: #### U LAG #### [address] 039[address] Auto Diff Performed NOT REPORTED Normal [facility] Comment on above: Performed By: #### U LAG #### [facility] [address] [place] [address] 39914 Platelets #/vol (Bld) NOT REPORTED Normal [facility] Comment on above: Performed By: #### U LAG #### [facility] [address] [place] [address] 05605 RBC morphology finding Nom (Bld) NOT REPORTED Normal [facility] Comment on above: Performed By: #### U LAG #### [facility] [address] [place] [address] 85501 WBC Morphology NOT REPORTED Normal [facility] Comment on above: Performed By: #### U LAG #### [address] [address] Comp Metabolic Pr/rfx MGon 1 10-21-2017 (cont.) Normal [facility] Comment on above: Result Comment: Aver age GFR for 30-39 years old: 107 mL/min/1.73sq m Chronic Kidney Disease: <60 mL/min/1.73sq m Kidney failure: <15 mL/min/1.73sq m eGFR calculated using average adult body mass. Additional eGFR calculator available at: http://www.[employer]/multiple_crcl_2012.htm Performed By: #### U LAG #### [facility] [address] [place] [address] 53152 Albumin mass conc 2.9 g/dL Low 3.5-5.2 [facility] Comment on above: Performed By: #### U LAG #### [facility] [address] [place] [address] 77568 Albumin/Globulin mass ratio 0.7 {ratio} Low 1.0-2.5 [facility] Comment on above: Performed By: #### U LAG #### [facility] [address] [place] [address] 03675 Alkaline Phos 98 U/L Normal 35-104 [facility] Comment on above: Performed By: #### U LAG #### [facility] [address] [place] [address] 16557 ALT enzyme act/vol 19 U/L Normal 5-33 [facility] Comment on above: Performed By: #### U LAG #### [facility] [place] [address] [place] [address] 43408 Anion gap molar conc 14 mmol/L Normal 9-17 [facility] Comment on above: Performed By: #### U LAG #### [facility] [address] [place] [address] 81226 AST enzyme act/vol 21 U/L Normal <32 [facility] Comment on above: Performed By: #### U LAG #### [facility] [address] [place] [address] 99523 Bilirubin Ql (U) 0.32 mg/dL Normal 0.3-1.2 [facility] Comment on above: Performed By: #### U LAG #### [employer] [address] [place] [address] 79699 Calcium mass conc 9.1 mg/dL Normal 8.6-10.4 [facility] Comment on above: Performed By: #### U LAG #### [employer] [address] [place] [address] 80401 Chloride molar conc 102 mmol/L Normal 98-107 [facility] Comment on above: Performed By: #### U LAG #### [facility] [address] [place] [address] 89033 CO2 molar conc 23 mmol/L Normal 20-31 [facility] Comment on above: Performed By: #### U LAG #### [facility] [address] [place] [address] 41880 Creatinine mass conc 0.90 mg/dL Normal 0.50-0.90 [facility] Comment on above: Performed By: #### U LAG #### [employer] [address] [place] [address] 86557 GFR, Amer >60 Normal >60 [facility] Comment on above: Performed By: #### U LAG #### [employer] [address] [place] [address] 35156 GFR,non Amer >60 Normal >60 [facility] Comment on above: Performed By: #### U LAG #### [employer] [address] [place] [address] 71897 Glucose mass conc 108 mg/dL High 70-99 [facility] Comment on above: Performed By: #### U LAG #### [employer] [place] [address] [place] [address] 09132 Potassium molar conc 4.6 mmol/L Normal 3.7-5.3 [facility] Comment on above: Performed By: #### U LAG #### [employer] [facility] [place] [address] Protein mass conc 6.9 g/dL Normal 6.4-8.3 [facility] Comment on above: Performed By: #### U LAG #### [facility] [address] [place] [address] 69676 Sodium molar conc 139 mmol/L Normal 135-144 [facility] Comment on above: Performed By: #### U LAG #### [employer] [address] [place] [address] 16628 Urea nitrogen mass conc 17 mg/dL Normal - [facility] Comment on above: Performed By: #### U LAG #### [employer] [address] [place] [address] 27005 BUN/CRE Ratio NOT REPORTED Normal 06-24 [facility] Comment on above: Performed By: #### U LAG #### [employer] [address] [place] [address] 72809 Staging: NOT REPORTED Normal [facility] Comment on above: Performed By: #### U LAG #### [employer] [address] [place] [address] 22195 Cult,Bloodon 08-21-2018 Cult,Blood Specimen Description .BLOOD Special Requests L AC 20ML Culture POSITIVE Blood Culture CALLED TO MIS Medina [phone] DIRECT GRAM STAIN FROM BOTTLE: GRAM POSITIVE COCCI IN CLUSTERS METHICILLIN RESISTANT STAPHYLOCOCCUS AUREUS For susceptibility, refer to previous culture. Report Status FINAL 08/21/2018 Normal [facility] Comment on above: Performed By: #### U LAG #### [employer] [address] [place] [address] 31154 MRI FOOT LEFT W WO CONTRASTo n [...] Murali Goff MD 08/21/18 Final result Normal [facility] Magnesiumon 08-21-2018 Magnesium mass conc 2.4 mg/dL Normal 1.6-2.6 [facility] Comment on above: Performed By: #### U LAG #### [facility] [place] [address] [place] [address] 19078 Procalcitoninon 08-21-2018 Protein mass conc 0.27 ng/mL High <0.09 [facility] Comment on above: Result Comment: Suspected Sepsis: [...] entered into the Change in Procalcitonin Calculator ([email or web address]-hwm-ntftwbfgak.TheBlogTV) to determine the patient's Mortality Risk Prognosis Performed By: #### U LAG #### [facility] [address] [place] [address] 35193 C-Reactive Proteinon 018 CRP mass conc 50.4 mg/L High 0.0-5.0 [facility] Comment on above: Performed By: #### L ACDS, TROPI, PRCAL, MYCM #### [employer] [address] [place] [address] 18026 CBC with Diffon 08-20-2018 Abs. Basophil 0.08 k/uL Normal 0.0-0.2 [facility] Comment on above: Performed By: #### L ACDS, TROPI, PRCAL, MYCM #### [employer] [address] [place] [address] 34103 Abs.Imm.Granulocyte 0.42 k/uL High 0.00-0.30 [facility] Comment on above: Performed By: #### L ACDS, TROPI, PRCAL, MYCM #### [address] [address] Abs.Neutrophil (Seg) 4.57 k/uL Normal 1.8-7.7 [facility] Comment on above: Performed By: #### L ACDS, TROPI, PRCAL, MYCM #### [address] 68735 Basophils/100 WBC (Bld) 1 % Normal 0-2 [facility] Comment on above: Performed By: #### L ACDS, TROPI, PRCAL, MYCM #### [place] [address] Eosinophils #/vol (Bld) 0.25 10*3/uL Normal 0.0-0.4 [facility] Comment on above: Performed By: #### L ACDS, TROPI, PRCAL, MYCM #### [place] [address] Eosinophils/100 WBC (Bld) 3 % Normal 1-4 [facility] Comment on above: Performed By: #### L ACDS, TROPI, PRCAL, MYCM #### [address] 21489 Immature granulocytes #/vol (Bld) 5 % High 0 [facility] Comment on above: Performed By: #### L ACDS, TROPI, PRCAL, MYCM #### [address] [address] Lymphocytes #/vol (Bld) 2.32 10*3/uL Normal 1.0-4.8 [facility] Comment on above: Performed By: #### L ACDS, TROPI, PRCAL, MYCM #### [address] 55288 Lymphocytes/100 WBC (Bld) 28 % Normal 24-44 [facility] Comment on above: Performed By: #### L ACDS, TROPI, PRCAL, MYCM #### [address] 8[address]43 Monocytes #/vol (Bld) 0.66 10*3/uL Normal 0.1-0.8 [facility] Comment on above: Performed By: #### L ACDS, TROPI, PRCAL, MYCM #### [address] 93767 Monocytes/100 WBC (Bld) 8 % High 1-7 [facility] Comment on above: Performed By: #### L ACDS, TROPI, PRCAL, MYCM #### [address] [address] Morphology Interp Rehan (Bld) ANISOCYTOSIS PRESENT Normal [facility] Comment on above: Performed By: #### L ACDS, TROPI, PRCAL, MYCM #### [address] [address]39 Neutrophil (Seg) 55 % Normal 36-66 [facility] Comment on above: Performed By: #### L ACDS, TROPI, PRCAL, MYCM #### [address] 02503 Erythrocyte distribution width Ratio (RBC) 14.6 % High 11.8-14.4 [facility] Comment on above: Performed By: #### L ACDS, TROPI, PRCAL, MYCM #### [facility] [address] [place] [address] 07133 Hematocrit Volume Fraction (Bld) 33.5 % Low 36.3-47.1 [facility] Comment on above: Performed By: #### L ACDS, TROPI, PRCAL, MYCM #### [facility] [address] [place] [address] 61056 Hemoglobin mass conc (Bld) 10.2 g/dL Low 11.9-15.1 [facility] Comment on above: Performed By: #### L ACDS, TROPI, PRCAL, MYCM #### [facility] [address] [place] [address] 33798 MCH Entitic mass (RBC) 27.9 pg Normal 25.2-33.5 [facility] Comment on above: Performed By: #### L ACDS, TROPI, PRCAL, MYCM #### [facility] [address] [place] [address] 10241 MCHC mass conc (RBC) 30.4 g/dL Normal 28.4-34.8 [facility] Comment on above: Performed By: #### L ACDS, TROPI, PRCAL, MYCM #### [facility] [address] [place] [address] 77953 MCV Entitic volume (RBC) 91.5 fL Normal 82.6-102.9 [facility] Comment on above: Performed By: #### L ACDS, TROPI, PRCAL, MYCM #### [address] [address]52 NRBC Automated 0.0 per 100 WBC Normal 0.0 [facility] Comment on above: Performed By: #### L ACDS, TROPI, PRCAL, MYCM #### [facility] [address] [place] [address] 12391 Platelet mean volume Entitic volume (Bld) 11.0 fL Normal 8.1-13.5 [facility] Comment on above: Performed By: #### L ACDS, TROPI, PRCAL, MYCM #### [facility] [address] [place] [address] 81657 Platelets #/vol (Bld) 211 10*3/uL Normal 138-453 [facility] Comment on above: Performed By: #### L ACDS, TROPI, PRCAL, MYCM #### [facility] [address] [place] [address] 33056 RBC #/vol (Bld) 3.66 10*6/uL Low 3.95-5.11 [facility] Comment on above: Performed By: #### L ACDS, TROPI, PRCAL, MYCM #### [address] [address] WBC #/vol (Bld) 8.3 10*3/uL Normal 3.5-11.3 [facility] Comment on above: Performed By: #### L ACDS, TROPI, PRCAL, MYCM #### [facility] [address] [place] [address] 50066 Auto Diff Performed NOT REPORTED Normal [facility] Comment on above: Performed By: #### L ACDS, TROPI, PRCAL, MYCM #### [address] 7[address] Platelets #/vol (Bld) NOT REPORTED Normal [facility] Comment on above: Performed By: #### L ACDS, TROPI, PRCAL, MYCM #### [facility] [address] [place] [address] 27182 RBC morphology finding Nom (Bld) NOT REPORTED Normal [facility] Comment on above: Performed By: #### L ACDS, TROPI, PRCAL, MYCM #### [facility] [address] [place] [address] 32887 WBC Morphology NOT REPORTED Normal [facility] Comment on above: Performed By: #### L ACDS, TROPI, PRCAL, MYCM #### [address] 91238 Comp Metabolic Pr/rfx MGon 1 10-20-2017 (cont.) Normal [facility] Comment on above: Result Comment: Aver age GFR for 30-39 years old: 107 mL/min/1.73sq m Chronic Kidney Disease: <60 mL/min/1.73sq m Kidney failure: <15 mL/min/1.73sq m eGFR calculated using average adult body mass. Additional eGFR calculator available at: http://www.[employer]/multiple_crcl_2012.htm Performed By: #### L ACDS, TROPI, PRCAL, MYCM #### [address] 16657 Albumin mass conc 3.1 g/dL Low 3.5-5.2 [facility] Comment on above: Performed By: #### L ACDS, TROPI, PRCAL, MYCM #### [facility] [address] [place] [address] 24887 Albumin/Globulin mass ratio 0.9 {ratio} Low 1.0-2.5 [facility] Comment on above: Performed By: #### L ACDS, TROPI, PRCAL, MYCM #### [facility] [address] [place] [address] 98412 Alkaline Phos 83 U/L Normal 35-104 [facility] Comment on above: Performed By: #### L ACDS, TROPI, PRCAL, MYCM #### [facility] [address] [place] [address] 81684 ALT enzyme act/vol 17 U/L Normal 5-33 [facility] Comment on above: Performed By: #### L ACDS, TROPI, PRCAL, MYCM #### [facility] [address] [place] [address] 55454 Anion gap molar conc 11 mmol/L Normal 9-17 [facility] Comment on above: Performed By: #### L ACDS, TROPI, PRCAL, MYCM #### [facility] [address] [place] [address] 63470 AST enzyme act/vol 18 U/L Normal <32 [facility] Comment on above: Performed By: #### L ACDS, TROPI, PRCAL, MYCM #### [facility] [address] [place] [address] 03281 Bilirubin Ql (U) 0.29 mg/dL Low 0.3-1.2 [facility] Comment on above: Performed By: #### L ACDS, TROPI, PRCAL, MYCM #### [facility] [address] [place] [address] 71736 Calcium mass conc 9.0 mg/dL Normal 8.6-10.4 [facility] Comment on above: Performed By: #### L ACDS, TROPI, PRCAL, MYCM #### [facility] [address] [place] [address] 29519 Chloride molar conc 101 mmol/L Normal 98-107 [facility] Comment on above: Performed By: #### L ACDS, TROPI, PRCAL, MYCM #### [facility] [address] [place] [address] 12806 CO2 molar conc 27 mmol/L Normal 20-31 [facility] Comment on above: Performed By: #### L ACDS, TROPI, PRCAL, MYCM #### [facility] [address] [place] [address] 29482 Creatinine mass conc 0.97 mg/dL High 0.50-0.90 [facility] Comment on above: Performed By: #### L ACDS, TROPI, PRCAL, MYCM #### [facility] [address] [place] [address] 48885 GFR, Amer >60 Normal >60 [facility] Comment on above: Performed By: #### L ACDS, TROPI, PRCAL, MYCM #### [facility] [address] [place] [address] 35582 GFR,non Amer >60 Normal >60 [facility] Comment on above: Performed By: #### L ACDS, TROPI, PRCAL, MYCM #### [facility] [address] [place] [address] 37316 Glucose mass conc 105 mg/dL High 70-99 [facility] Comment on above: Performed By: #### L ACDS, TROPI, PRCAL, MYCM #### [facility] [address] [place] [address] 62396 Potassium molar conc 4.4 mmol/L Normal 3.7-5.3 [facility] Comment on above: Performed By: #### L ACDS, TROPI, PRCAL, MYCM #### [facility] [address] [place] [address] 85905 Protein mass conc 6.6 g/dL Normal 6.4-8.3 [facility] Comment on above: Performed By: #### L ACDS, TROPI, PRCAL, MYCM #### [facility] [address] [place] [address] 27006 Sodium molar conc 139 mmol/L Normal 135-144 [facility] Comment on above: Performed By: #### L ACDS, TROPI, PRCAL, MYCM #### [facility] [address] [place] [address] 44352 Urea nitrogen mass conc 15 mg/dL Normal 6-20 [facility] Comment on above: Performed By: #### L ACDS, TROPI, PRCAL, MYCM #### [facility] [address] [place] [address] 83758 BUN/CRE Ratio NOT REPORTED Normal 9-20 [facility] Comment on above: Performed By: #### L ACDS, TROPI, PRCAL, MYCM #### [facility] [place] [facility] [place] [address] Staging: NOT REPORTED Normal [facility] Comment on above: Performed By: #### L ACDS, TROPI, PRCAL, MYCM #### [facility] [place] [facility] [place] [address] Magnesiumon 08-20-2018 Magnesium mass conc 2.2 mg/dL Normal 1.6-2.6 [facility] Comment on above: Performed By: #### L ACDS, TROPI, PRCAL, MYCM #### [facility] [place] [address] [place] [address] 96574 Sedimentation Rateon 018 Sedimentation Rate 100 mm High 0-20 [facility] Comment on above: Performed By: #### L ACDS, TROPI, PRCAL, MYCM #### [facility] [place] [address] [place] [address] [id number] XR FOOT LEFT (MIN 3 VIEWS)on 08-20-2018 [...] Andrey Angelo MD 08/20/18 Final result Normal [facility] CBC with Diffon 08-19-2018 Abs. Basophil 0.00 k/uL Normal 0.0-0.2 [facility] Comment on above: Performed By: #### L ACDS, TROPI, PRCAL, MYCM #### [facility] [place] [address] [place] [address] 47180 Abs.Imm.Granulocyte 0.42 k/uL High 0.00-0.30 [facility] Comment on above: Performed By: #### L ACDS, TROPI, PRCAL, MYCM #### [address] [address] Abs.Neutrophil (Seg) 2.70 k/uL Normal 1.8-7.7 [facility] Comment on above: Performed By: #### L ACDS, TROPI, PRCAL, MYCM #### [facility] [place] [address] [place] [address] 02513 Basophils/100 WBC (Bld) 0 % Normal 0-2 [facility] Comment on above: Performed By: #### L ACDS, TROPI, PRCAL, MYCM #### [address] [address] Eosinophils #/vol (Bld) 0.30 10*3/uL Normal 0.0-0.4 [facility] Comment on above: Performed By: #### L ACDS, TROPI, PRCAL, MYCM #### [address] [address] Eosinophils/100 WBC (Bld) 5 % High 1-4 [facility] Comment on above: Performed By: #### L ACDS, TROPI, PRCAL, MYCM #### [address] [address] Immature granulocytes #/vol (Bld) 7 % High 0 [facility] Comment on above: Performed By: #### L ACDS, TROPI, PRCAL, MYCM #### [address] [address] Lymphocytes #/vol (Bld) 2.22 10*3/uL Normal 1.0-4.8 [facility] Comment on above: Performed By: #### L ACDS, TROPI, PRCAL, MYCM #### [address] [address] Lymphocytes/100 WBC (Bld) 37 % Normal 24-44 [facility] Comment on above: Performed By: #### L ACDS, TROPI, PRCAL, MYCM #### [address] [address] Monocytes #/vol (Bld) 0.36 10*3/uL Normal 0.1-0.8 [facility] Comment on above: Performed By: #### L ACDS, TROPI, PRCAL, MYCM #### [address] [address] Monocytes/100 WBC (Bld) 6 % Normal 1-7 [facility] Comment on above: Performed By: #### L ACDS, TROPI, PRCAL, MYCM #### [address] [address] Morphology Interp Rehan (Bld) ANISOCYTOSIS PRESENT Normal [facility] Comment on above: Performed By: #### L ACDS, TROPI, PRCAL, MYCM #### [address] [address] Neutrophil (Seg) 45 % Normal 36-66 [facility] Comment on above: Performed By: #### L ACDS, TROPI, PRCAL, MYCM #### [facility] [place] [address] [place] [address] 76464 Erythrocyte distribution width Ratio (RBC) 14.6 % High 11.8-14.4 [facility] Comment on above: Performed By: #### L ACDS, TROPI, PRCAL, MYCM #### [facility] [place] [address] [place] [address] 00605 Hematocrit Volume Fraction (Bld) 34.4 % Low 36.3-47.1 [facility] Comment on above: Performed By: #### L ACDS, TROPI, PRCAL, MYCM #### [address] [address] Hemoglobin mass conc (Bld) 10.4 g/dL Low 11.9-15.1 [facility] Comment on above: Performed By: #### L ACDS, TROPI, PRCAL, MYCM #### [address] [address] MCH Entitic mass (RBC) 28.0 pg Normal 25.2-33.5 [facility] Comment on above: Performed By: #### L ACDS, TROPI, PRCAL, MYCM #### [address] [address] MCHC mass conc (RBC) 30.2 g/dL Normal 28.4-34.8 [facility] Comment on above: Performed By: #### L ACDS, TROPI, PRCAL, MYCM #### [address] [address] MCV Entitic volume (RBC) 92.7 fL Normal 82.6-102.9 [facility] Comment on above: Performed By: #### L ACDS, TROPI, PRCAL, MYCM #### [address] [address] NRBC Automated 0.3 per 100 WBC High 0.0 [facility] Comment on above: Performed By: #### L ACDS, TROPI, PRCAL, MYCM #### [address] [address] Platelet mean volume Entitic volume (Bld) 10.5 fL Normal 8.1-13.5 [facility] Comment on above: Performed By: #### L ACDS, TROPI, PRCAL, MYCM #### [address] [address] Platelets #/vol (Bld) 168 10*3/uL Normal 138-453 [facility] Comment on above: Performed By: #### L ACDS, TROPI, PRCAL, MYCM #### [facility] [place] [address] [place] [address] RBC #/vol (Bld) 3.71 10*6/uL Low 3.95-5.11 [facility] Comment on above: Performed By: #### L ACDS, TROPI, PRCAL, MYCM #### [address] [address] WBC #/vol (Bld) 6.0 10*3/uL Normal 3.5-11.3 [facility] Comment on above: Performed By: #### L ACDS, TROPI, PRCAL, MYCM #### [facility] [place] [address] [place] [address] 04206 Auto Diff Performed NOT REPORTED Normal [facility] Comment on above: Performed By: #### L ACDS, TROPI, PRCAL, MYCM #### [facility] [place] [address] [place] [address] Platelets #/vol (Bld) NOT REPORTED Normal [facility] Comment on above: Performed By: #### L ACDS, TROPI, PRCAL, MYCM #### [facility] [place] [address] [place] [address] 53624 RBC morphology finding Nom (Bld) NOT REPORTED Normal [facility] Comment on above: Performed By: #### L ACDS, TROPI, PRCAL, MYCM #### [facility] [place] [address] [place] [address] 94189 WBC Morphology NOT REPORTED Normal [facility] Comment on above: Performed By: #### L ACDS, TROPI, PRCAL, MYCM #### [facility] [place] [address] [place] [address] 87380 Comp Metabolic Pr/rfx MGon 1 10-19-2017 (cont.) Normal [facility] Comment on above: Result Comment: Aver age GFR for 30-39 years old: 107 mL/min/1.73sq m Chronic Kidney Disease: <60 mL/min/1.73sq m Kidney failure: <15 mL/min/1.73sq m eGFR calculated using average adult body mass. Additional eGFR calculator available at: http://www.[employer]/multiple_crcl_2012.htm Performed By: #### L ACDS, TROPI, PRCAL, MYCM #### [facility] [place] [address] [place] [address] 32971 Albumin mass conc 2.7 g/dL Low 3.5-5.2 [facility] Comment on above: Performed By: #### L ACDS, TROPI, PRCAL, MYCM #### [facility] [place] [address] [place] [address] 44783 Albumin/Globulin mass ratio 0.8 {ratio} Low 1.0-2.5 [facility] Comment on above: Performed By: #### L ACDS, TROPI, PRCAL, MYCM #### [facility] [place] [address] [place] [address] 00427 Alkaline Phos 78 U/L Normal 35-104 [facility] Comment on above: Performed By: #### L ACDS, TROPI, PRCAL, MYCM #### [facility] [place] [facility] [place] [address] ALT enzyme act/vol 16 U/L Normal 5-33 [facility] Comment on above: Performed By: #### L ACDS, TROPI, PRCAL, MYCM #### [facility] [place] [address] [place] [address] 14811 Anion gap molar conc 10 mmol/L Normal 9-17 [facility] Comment on above: Performed By: #### L ACDS, TROPI, PRCAL, MYCM #### [facility] [place] [address] [place] [address] 55174 AST enzyme act/vol 16 U/L Normal <32 [facility] Comment on above: Performed By: #### L ACDS, TROPI, PRCAL, MYCM #### [address] [address] Bilirubin Ql (U) 0.21 mg/dL Low 0.3-1.2 [facility] Comment on above: Performed By: #### L ACDS, TROPI, PRCAL, MYCM #### [facility] [place] [address] [place] [address] 52312 Calcium mass conc 8.5 mg/dL Low 8.6-10.4 [facility] Comment on above: Performed By: #### L ACDS, TROPI, PRCAL, MYCM #### [facility] [place] [address] [place] [address] 87854 Chloride molar conc 103 mmol/L Normal 98-107 [facility] Comment on above: Performed By: #### L ACDS, TROPI, PRCAL, MYCM #### [address] [address] CO2 molar conc 24 mmol/L Normal 20-31 [facility] Comment on above: Performed By: #### L ACDS, TROPI, PRCAL, MYCM #### [facility] [place] [address] [place] [address] 82169 Creatinine mass conc 0.88 mg/dL Normal 0.50-0.90 [facility] Comment on above: Performed By: #### L ACDS, TROPI, PRCAL, MYCM #### [facility] [place] [address] [place] [address] 56116 GFR, Amer >60 Normal >60 [facility] Comment on above: Performed By: #### L ACDS, TROPI, PRCAL, MYCM #### [facility] [place] [address] [place] [address] 33636 GFR,non Amer >60 Normal >60 [facility] Comment on above: Performed By: #### L ACDS, TROPI, PRCAL, MYCM #### [facility] [place] [address] [place] [address] 01976 Glucose mass conc 104 mg/dL High 70-99 [facility] Comment on above: Performed By: #### L ACDS, TROPI, PRCAL, MYCM #### [facility] [place] [address] [place] [address] 14845 Potassium molar conc 4.0 mmol/L Normal 3.7-5.3 [facility] Comment on above: Performed By: #### L ACDS, TROPI, PRCAL, MYCM #### [facility] [place] [address] [place] [address] 87971 Protein mass conc 6.3 g/dL Low 6.4-8.3 [facility] Comment on above: Performed By: #### L ACDS, TROPI, PRCAL, MYCM #### [facility] [place] [address] [place] [address] 46926 Sodium molar conc 137 mmol/L Normal 135-144 [facility] Comment on above: Performed By: #### L ACDS, TROPI, PRCAL, MYCM #### [facility] [address] [place] [address] Urea nitrogen mass conc 16 mg/dL Normal 6-20 [facility] Comment on above: Performed By: #### L ACDS, TROPI, PRCAL, MYCM #### [facility] [place] [address] [place] [address] 90326 BUN/CRE Ratio NOT REPORTED Normal 9-20 [facility] Comment on above: Performed By: #### L ACDS, TROPI, PRCAL, MYCM #### [employer] [facility] [place], [place] [id number] Staging: NOT REPORTED Normal [facility] Comment on above: Performed By: #### L ACDS, TROPI, PRCAL, MYCM #### [employer] [address] [place] [address] [id number] Cult, Bloodon 08-19-2018 Cult, Blood Specimen Description .BLOOD Special Requests L HAND 6ML Culture POSITIVE BLOOD CULTURE, RN NOTIFIED: ELMRE Lino ON 08/17/18 AT 1107 DIRECT GRAM [...] Trimethoprim/Sulfa <=10 SUSCEPTIBLE Vancomycin 1 SUSCEPTIBLE Normal [facility] Comment on above: Performed By: #### L ACDS, TROPI, PRCAL, MYCM #### [employer] [address] [place] [address] [id number] MRI CERVICAL SPINE W WO CONT RASTon [...] Bo Rodrigues MD 08/19/18 Final result Normal [facility] MRI LUMBAR SPINE W WO ALEXY [place] 08-19-2018 MRI LUMBAR SPINE W WO CONTRAST [...] Bo Rodrigues MD 08/19/18 Final result Normal [facility] MRI THORACIC SPINE W WO CONT [...] Bo Rodrigues MD 08/19/18 Final result Normal [facility] Magnesiumon 08-19-2018 Magnesium mass conc 2.3 mg/dL Normal 1.6-2.6 [facility] Comment on above: Performed By: #### L ACDS, TROPI, PRCAL, MYCM #### [facility] [place] [address] Procalcitoninon 08-19-2018 Protein mass conc 0.57 ng/mL High <0.09 [facility] Comment on above: Result Comment: Suspected Sepsis: [...] entered into the Change in Procalcitonin Calculator (www.damfux-zlh-eqwsjewdlx.[employer]Blog[employer]) to determine the patient's Mortality Risk Prognosis Performed By: #### L ACDS, TROPI, PRCAL, MYCM #### [facility] [place] [address] [place] [address] CBC with Diffon 08-18-2018 Abs. Basophil <0.03 Normal 0.00-0.20 [facility] Comment on above: Performed By: #### L ACDS, TROPI, PRCAL, MYCM #### [facility] [place] [address] [place] [address] 92430 Abs.Imm.Granulocyte 0.28 k/uL Normal 0.00-0.30 [facility] Comment on above: Performed By: #### L ACDS, TROPI, PRCAL, MYCM #### [facility] [place] [address] [place] [address]239 Abs.Neutrophil (Seg) 3.23 k/uL Normal 1.50-8.10 [facility] Comment on above: Performed By: #### L ACDS, TROPI, PRCAL, MYCM #### [facility] [place] [address] [place] [address] 57694 Basophils/100 WBC (Bld) 0 % Normal 0-2 [facility] Comment on above: Performed By: #### L ACDS, TROPI, PRCAL, MYCM #### [facility] [place] [address] [place] [address] 78326 Eosinophils #/vol (Bld) 0.15 10*3/uL Normal 0.00-0.44 [facility] Comment on above: Performed By: #### L ACDS, TROPI, PRCAL, MYCM #### [address] [address] Eosinophils/100 WBC (Bld) 3 % Normal 1-4 [facility] Comment on above: Performed By: #### L ACDS, TROPI, PRCAL, MYCM #### [facility] [place] [address] [place] [address]370 Erythrocyte distribution width Ratio (RBC) 14.7 % High 11.8-14.4 [facility] Comment on above: Performed By: #### L ACDS, TROPI, PRCAL, MYCM #### [address] [address] Hematocrit Volume Fraction (Bld) 32.7 % Low 36.3-47.1 [facility] Comment on above: Performed By: #### L ACDS, TROPI, PRCAL, MYCM #### [address] [address] Hemoglobin mass conc (Bld) 10.1 g/dL Low 11.9-15.1 [facility] Comment on above: Performed By: #### L ACDS, TROPI, PRCAL, MYCM #### [address] [address] Immature granulocytes #/vol (Bld) 5 % High 0 [facility] Comment on above: Performed By: #### L ACDS, TROPI, PRCAL, MYCM #### [facility] [place] [address] [place] [address] 64676 Lymphocytes #/vol (Bld) 1.58 10*3/uL Normal 1.10-3.70 [facility] Comment on above: Performed By: #### L ACDS, TROPI, PRCAL, MYCM #### [address] [address] Lymphocytes/100 WBC (Bld) 28 % Normal 24-43 [facility] Comment on above: Performed By: #### L ACDS, TROPI, PRCAL, MYCM #### [address] [address] MCH Entitic mass (RBC) 28.2 pg Normal 25.2-33.5 [facility] Comment on above: Performed By: #### L ACDS, TROPI, PRCAL, MYCM #### [address] [address] MCHC mass conc (RBC) 30.9 g/dL Normal 28.4-34.8 [facility] Comment on above: Performed By: #### L ACDS, TROPI, PRCAL, MYCM #### [address] [address] MCV Entitic volume (RBC) 91.3 fL Normal 82.6-102.9 [facility] Comment on above: Performed By: #### L ACDS, TROPI, PRCAL, MYCM #### [address] [address] Monocytes #/vol (Bld) 0.47 10*3/uL Normal 0.10-1.20 [facility] Comment on above: Performed By: #### L ACDS, TROPI, PRCAL, MYCM #### [address] [address] Monocytes/100 WBC (Bld) 8 % Normal 3-12 [facility] Comment on above: Performed By: #### L ACDS, TROPI, PRCAL, MYCM #### [address] [address] Neutrophil (Seg) 56 % Normal 36-65 [facility] Comment on above: Performed By: #### L ACDS, TROPI, PRCAL, MYCM #### [address] [address] NRBC Automated 0.0 per 100 WBC Normal 0.0 [facility] Comment on above: Performed By: #### L ACDS, TROPI, PRCAL, MYCM #### [address] [address] Platelet mean volume Entitic volume (Bld) 11.4 fL Normal 8.1-13.5 [facility] Comment on above: Performed By: #### L ACDS, TROPI, PRCAL, MYCM #### [address] [address] Platelets #/vol (Bld) 153 10*3/uL Normal 138-453 [facility] Comment on above: Performed By: #### L ACDS, TROPI, PRCAL, MYCM #### [address] [address] RBC #/vol (Bld) 3.58 10*6/uL Low 3.95-5.11 [facility] Comment on above: Performed By: #### L ACDS, TROPI, PRCAL, MYCM #### [address] [address] RBC morphology finding Nom (Bld) ANISOCYTOSIS PRESENT Normal [facility] Comment on above: Performed By: #### L ACDS, TROPI, PRCAL, MYCM #### [address] [address] WBC #/vol (Bld) 5.7 10*3/uL Normal 3.5-11.3 [facility] Comment on above: Performed By: #### L ACDS, TROPI, PRCAL, MYCM #### [address] [place] [address] Auto Diff Performed NOT REPORTED Normal [facility] Comment on above: Performed By: #### L ACDS, TROPI, PRCAL, MYCM #### [address] [address] Platelets #/vol (Bld) NOT REPORTED Normal [facility] Comment on above: Performed By: #### L ACDS, TROPI, PRCAL, MYCM #### [facility] [place] [address] [place] [address] 12852 WBC Morphology NOT REPORTED Normal [facility] Comment on above: Performed By: #### L ACDS, TROPI, PRCAL, MYCM #### [address] [address] Comp Metabolic Pr/rfx MGon 1 10-18-2017 (cont.) Normal [facility] Comment on above: Result Comment: Aver age GFR for 30-39 years old: 107 mL/min/1.73sq m Chronic Kidney Disease: <60 mL/min/1.73sq m Kidney failure: <15 mL/min/1.73sq m eGFR calculated using average adult body mass. Additional eGFR calculator available at: http://www.[employer]TV/multiple_crcl_2012.htm Performed By: #### L ACDS, TROPI, PRCAL, MYCM #### [facility] [place] [address] [place] [address] 9[address]12 Albumin mass conc 2.7 g/dL Low 3.5-5.2 [facility] Comment on above: Performed By: #### L ACDS, TROPI, PRCAL, MYCM #### [facility] [place] [address] [place] [address] 14265 Albumin/Globulin mass ratio 0.8 {ratio} Low 1.0-2.5 [facility] Comment on above: Performed By: #### L ACDS, TROPI, PRCAL, MYCM #### [facility] [place] [address] [place] [address] 23778 Alkaline Phos 82 U/L Normal 35-104 [facility] Comment on above: Performed By: #### L ACDS, TROPI, PRCAL, MYCM #### [facility] [place] [address] [place] [address] 79047 ALT enzyme act/vol 19 U/L Normal 5-33 [facility] Comment on above: Performed By: #### L ACDS, TROPI, PRCAL, MYCM #### [facility] [place] [address] [place] [address] 68487 Anion gap molar conc 8 mmol/L Low 9-17 [facility] Comment on above: Performed By: #### L ACDS, TROPI, PRCAL, MYCM #### [facility] [place] [address] [place] [address] 67920 AST enzyme act/vol 17 U/L Normal <32 [facility] Comment on above: Performed By: #### L ACDS, TROPI, PRCAL, MYCM #### [facility] [place] [address] [place] [address] 56911 Bilirubin Ql (U) 0.24 mg/dL Low 0.3-1.2 [facility] Comment on above: Performed By: #### L ACDS, TROPI, PRCAL, MYCM #### [facility] [place] [address] [place] [address] 54364 Calcium mass conc 8.2 mg/dL Low 8.6-10.4 [facility] Comment on above: Performed By: #### L ACDS, TROPI, PRCAL, MYCM #### [facility] [place] [address] [place] [address] 15837 Chloride molar conc 103 mmol/L Normal 98-107 [facility] Comment on above: Performed By: #### L ACDS, TROPI, PRCAL, MYCM #### [facility] [place] [address] [place] [address] 15914 CO2 molar conc 25 mmol/L Normal 20-31 [facility] Comment on above: Performed By: #### L ACDS, TROPI, PRCAL, MYCM #### [facility] [place] [address] [place] [address] 39925 Creatinine mass conc 0.94 mg/dL High 0.50-0.90 [facility] Comment on above: Performed By: #### L ACDS, TROPI, PRCAL, MYCM #### [facility] [place] [address] [place] [address] 16665 GFR, Amer >60 Normal >60 [facility] Comment on above: Performed By: #### L ACDS, TROPI, PRCAL, MYCM #### [facility] [place] [address] [place] [address] 27588 GFR,non Amer >60 Normal >60 [facility] Comment on above: Performed By: #### L ACDS, TROPI, PRCAL, MYCM #### [facility] [place] [address] [place] [address] 12018 Glucose mass conc 107 mg/dL High 70-99 [facility] Comment on above: Performed By: #### L ACDS, TROPI, PRCAL, MYCM #### [facility] [place] [address] [place] [address] 97090 Potassium molar conc 4.1 mmol/L Normal 3.7-5.3 [facility] Comment on above: Performed By: #### L ACDS, TROPI, PRCAL, MYCM #### [facility] [place] [address] [place] [address] 99346 Protein mass conc 6.2 g/dL Low 6.4-8.3 [facility] Comment on above: Performed By: #### L ACDS, TROPI, PRCAL, MYCM #### [facility] [address] [place] [address] 55577 Sodium molar conc 136 mmol/L Normal 135-144 [facility] Comment on above: Performed By: #### L ACDS, TROPI, PRCAL, MYCM #### [facility] [address] [place] [address] 35746 Urea nitrogen mass conc 14 mg/dL Normal -20 [facility] Comment on above: Performed By: #### L ACDS, TROPI, PRCAL, MYCM #### [facility] [address] [place] [address] 75191 BUN/CRE Ratio NOT REPORTED Normal 06-24 [facility] Comment on above: Performed By: #### L ACDS, TROPI, PRCAL, MYCM #### [facility] [address] [place] [address] 38500 Staging: NOT REPORTED Normal [facility] Comment on above: Performed By: #### L ACDS, TROPI, PRCAL, MYCM #### [facility] [address] [place] [address] 24576 Magnesiumon 08-18-2018 Magnesium mass conc 2.3 mg/dL Normal 1.6-2.6 [facility] Comment on above: Performed By: #### L ACDS, TROPI, PRCAL, MYCM #### [employer] [address] [place] [address] 27492 Vancomycin Troughon 08-18-20 18 Vancomycin Trough 14.7 ug/mL Normal 10.0-20.0 [facility] [facility] Comment on above: Result Comment: High er trough serum vancomycin concentrations of 15-20 ug/mL are recommended for complicated infections such as bacteremia, endocarditis, osteomyelitis, meningitis, and hospital acquired pneumonia. Performed By: #### L ACDS, TROPI, PRCAL, MYCM #### [employer] [address] [place] [address] 91323 Date last dose, NOT REPORTED Normal [facility] Comment on above: Performed By: #### L ACDS, TROPI, PRCAL, MYCM #### [address] [address] Dose amount, NOT REPORTED Normal [facility] Comment on above: Performed By: #### L ACDS, TROPI, PRCAL, MYCM #### [facility] [address] [place] [address] 80979 Time last dose, NOT REPORTED Normal [facility] Comment on above: Performed By: #### L ACDS, TROPI, PRCAL, MYCM #### [facility] [address] [place] [address] 39949 C-Reactive Proteinon 018 CRP mass conc 188.1 mg/L High 0.0-5.0 [facility] Comment on above: Performed By: #### L ACDS, TROPI, PRCAL, MYCM #### [address] [address] CBC with Diffon 08-17-2018 Abs. Basophil 0.00 k/uL Normal 0.0-0.2 [facility] Comment on above: Performed By: #### L ACDS, TROPI, PRCAL, MYCM #### [facility] [address] [place] [address] 27787 Abs.Imm.Granulocyte 0.13 k/uL Normal 0.00-0.30 [facility] Comment on above: Performed By: #### L ACDS, TROPI, PRCAL, MYCM #### [facility] [address] [place] [address] 46810 Abs.Neutrophil (Seg) 4.35 k/uL Normal 1.8-7.7 [facility] Comment on above: Performed By: #### L ACDS, TROPI, PRCAL, MYCM #### [facility] [address] [place] [address] 47574 Basophils/100 WBC (Bld) 0 % Normal 0-2 [facility] Comment on above: Performed By: #### L ACDS, TROPI, PRCAL, MYCM #### [address] [address] Eosinophils #/vol (Bld) 0.06 10*3/uL Normal 0.0-0.4 [facility] Comment on above: Performed By: #### L ACDS, TROPI, PRCAL, MYCM #### [facility] [address] [place] [address] 40820 Eosinophils/100 WBC (Bld) 1 % Normal 1-4 [facility] Comment on above: Performed By: #### L ACDS, TROPI, PRCAL, MYCM #### [address] [address] Immature granulocytes #/vol (Bld) 2 % High 0 [facility] Comment on above: Performed By: #### L ACDS, TROPI, PRCAL, MYCM #### [facility] [address] [place] [address] 32619 Lymphocytes #/vol (Bld) 1.32 10*3/uL Normal 1.0-4.8 [facility] Comment on above: Performed By: #### L ACDS, TROPI, PRCAL, MYCM #### [facility] [address] [place] [address] 41096 Lymphocytes/100 WBC (Bld) 21 % Low 24-44 [facility] Comment on above: Performed By: #### L ACDS, TROPI, PRCAL, MYCM #### [facility] [address] [place] [address] 50367 Monocytes #/vol (Bld) 0.44 10*3/uL Normal 0.1-0.8 [facility] Comment on above: Performed By: #### L ACDS, TROPI, PRCAL, MYCM #### [address] [address] Monocytes/100 WBC (Bld) 7 % Normal 1-7 [facility] Comment on above: Performed By: #### L ACDS, TROPI, PRCAL, MYCM #### [address] [address] Morphology Interp Rehan (Bld) ANISOCYTOSIS PRESENT Normal [facility] Comment on above: Result Comment: INCR EASED BANDS PRESENT 1+ TEARDROPS Performed By: #### L ACDS, TROPI, PRCAL, MYCM #### [address] [address] Neutrophil (Seg) 69 % High 36-66 [facility] Comment on above: Performed By: #### L ACDS, TROPI, PRCAL, MYCM #### [address] [address] Erythrocyte distribution width Ratio (RBC) 14.8 % High 11.8-14.4 [facility] Comment on above: Performed By: #### L ACDS, TROPI, PRCAL, MYCM #### [address] [address] Hematocrit Volume Fraction (Bld) 33.3 % Low 36.3-47.1 [facility] Comment on above: Performed By: #### L ACDS, TROPI, PRCAL, MYCM #### [facility] [address] [place] [address] 43385 Hemoglobin mass conc (Bld) 10.2 g/dL Low 11.9-15.1 [facility] Comment on above: Performed By: #### L ACDS, TROPI, PRCAL, MYCM #### [address] [address] MCH Entitic mass (RBC) 28.3 pg Normal 25.2-33.5 [facility] Comment on above: Performed By: #### L ACDS, TROPI, PRCAL, MYCM #### [address] [address] MCHC mass conc (RBC) 30.6 g/dL Normal 28.4-34.8 [facility] Comment on above: Performed By: #### L ACDS, TROPI, PRCAL, MYCM #### [address] [address] MCV Entitic volume (RBC) 92.2 fL Normal 82.6-102.9 [facility] Comment on above: Performed By: #### L ACDS, TROPI, PRCAL, MYCM #### [address] [address] NRBC Automated 0.0 per 100 WBC Normal 0.0 [facility] Comment on above: Performed By: #### L ACDS, TROPI, PRCAL, MYCM #### [address] [address] Platelet mean volume Entitic volume (Bld) 11.5 fL Normal 8.1-13.5 [facility] Comment on above: Performed By: #### L ACDS, TROPI, PRCAL, MYCM #### [address] [address] Platelets #/vol (Bld) 149 10*3/uL Normal 138-453 [facility] Comment on above: Performed By: #### L ACDS, TROPI, PRCAL, MYCM #### [address] [address] RBC #/vol (Bld) 3.61 10*6/uL Low 3.95-5.11 [facility] Comment on above: Performed By: #### L ACDS, TROPI, PRCAL, MYCM #### [address] [address] WBC #/vol (Bld) 6.3 10*3/uL Normal 3.5-11.3 [facility] Comment on above: Performed By: #### L ACDS, TROPI, PRCAL, MYCM #### [facility] [address] [place] [address] 28791 Auto Diff Performed NOT REPORTED Normal [facility] Comment on above: Performed By: #### L ACDS, TROPI, PRCAL, MYCM #### [facility] [address] [place] [address] 08126 Platelets #/vol (Bld) NOT REPORTED Normal [facility] Comment on above: Performed By: #### L ACDS, TROPI, PRCAL, MYCM #### [facility] [address] [place] [address] 93696 RBC morphology finding Nom (Bld) NOT REPORTED Normal [facility] Comment on above: Performed By: #### L ACDS, TROPI, PRCAL, MYCM #### [address] [address] WBC Morphology NOT REPORTED Normal [facility] Comment on above: Performed By: #### L ACDS, TROPI, PRCAL, MYCM #### [facility] [address] [place] [address] 75510 Comp Metabolic Pr/rfx MGon 1 10-17-2017 (cont.) Normal [facility] Comment on above: Result Comment: Aver age GFR for 30-39 years old: 107 mL/min/1.73sq m Chronic Kidney Disease: <60 mL/min/1.73sq m Kidney failure: <15 mL/min/1.73sq m eGFR calculated using average adult body mass. Additional eGFR calculator available at: http://www.Traction.TheBlogTV/multiple_crcl_2011.htm Performed By: #### L ACDS, TROPI, PRCAL, MYCM #### [facility] [address] [place] [address] 47629 Albumin mass conc 2.4 g/dL Low 3.5-5.2 [facility] Comment on above: Performed By: #### L ACDS, TROPI, PRCAL, MYCM #### [facility] [address] [place] [address] 11826 Albumin/Globulin mass ratio 0.7 {ratio} Low 1.0-2.5 [facility] Comment on above: Performed By: #### L ACDS, TROPI, PRCAL, MYCM #### [facility] [address] [place] [address] 53333 Alkaline Phos 76 U/L Normal 35-104 [facility] Comment on above: Performed By: #### L ACDS, TROPI, PRCAL, MYCM #### [facility] [address] [place] [address] 21204 ALT enzyme act/vol 25 U/L Normal 5-33 [facility] Comment on above: Performed By: #### L ACDS, TROPI, PRCAL, MYCM #### [facility] [address] [place] [address] 04433 Anion gap molar conc 8 mmol/L Low 9-17 [facility] Comment on above: Performed By: #### L ACDS, TROPI, PRCAL, MYCM #### [facility] [address] [place] [address] 97347 AST enzyme act/vol 26 U/L Normal <32 [facility] Comment on above: Performed By: #### L ACDS, TROPI, PRCAL, MYCM #### [facility] [address] [place] [address] 58304 Bilirubin Ql (U) 0.34 mg/dL Normal 0.3-1.2 [facility] Comment on above: Performed By: #### L ACDS, TROPI, PRCAL, MYCM #### [facility] [address] [place] [address] 52269 Calcium mass conc 7.8 mg/dL Low 8.6-10.4 [facility] Comment on above: Performed By: #### L ACDS, TROPI, PRCAL, MYCM #### [facility] [address] [place] [address] 68974 Chloride molar conc 99 mmol/L Normal 98-107 [facility] Comment on above: Performed By: #### L ACDS, TROPI, PRCAL, MYCM #### [facility] [address] [place] [address] 53565 CO2 molar conc 23 mmol/L Normal 20-31 [facility] Comment on above: Performed By: #### L ACDS, TROPI, PRCAL, MYCM #### [facility] [address] [place] [address] 12648 Creatinine mass conc 1.04 mg/dL High 0.50-0.90 [facility] Comment on above: Performed By: #### L ACDS, TROPI, PRCAL, MYCM #### [facility] [address] [place] [address] 75128 GFR, Amer >60 Normal >60 [facility] Comment on above: Performed By: #### L ACDS, TROPI, PRCAL, MYCM #### [facility] [address] [place] [address] 86190 GFR,non Amer 59 mL/min Low >60 [facility] Comment on above: Performed By: #### L ACDS, TROPI, PRCAL, MYCM #### [facility] [address] [place] [address] 45990 Glucose mass conc 109 mg/dL High 70-99 [facility] Comment on above: Performed By: #### L ACDS, TROPI, PRCAL, MYCM #### [facility] [address] [place] [address] 68463 Potassium molar conc 3.8 mmol/L Normal 3.7-5.3 [facility] Comment on above: Performed By: #### L ACDS, TROPI, PRCAL, MYCM #### [facility] [address] [place] [address] 91290 Protein mass conc 5.8 g/dL Low 6.4-8.3 [facility] Comment on above: Performed By: #### L ACDS, TROPI, PRCAL, MYCM #### [facility] [address] [place] [address] 53257 Sodium molar conc 130 mmol/L Low 135-144 [facility] Comment on above: Performed By: #### L ACDS, TROPI, PRCAL, MYCM #### [address] [address] Urea nitrogen mass conc 15 mg/dL Normal 6-20 [facility] Comment on above: Performed By: #### L ACDS, TROPI, PRCAL, MYCM #### [facility] [address] [place] [address] 12205 BUN/CRE Ratio NOT REPORTED Normal 9-20 [facility] Comment on above: Performed By: #### L ACDS, TROPI, PRCAL, MYCM #### [facility] [address] [place] [address] 20749 Staging: NOT REPORTED Normal [facility] Comment on above: Performed By: #### L ACDS, TROPI, PRCAL, MYCM #### [facility] [address] [place] [address] 55133 Magnesiumon 08-17-2018 Magnesium mass conc 2.2 mg/dL Normal 1.6-2.6 [facility] Comment on above: Performed By: #### L ACDS, TROPI, PRCAL, MYCM #### [facility] [address] [place] [address] 43830 Procalcitoninon 08-17-2018 Protein mass conc 1.48 ng/mL High <0.09 [facility] Comment on above: Result Comment: Suspected Sepsis: [...] entered into the Change in Procalcitonin Calculator (www.wnqtpt-ucc-gmawgabssb.TheBlogTV) to determine the patient's Mortality Risk Prognosis Performed By: #### L ACDS, TROPI, PRCAL, MYCM #### [facility] [address] [place] [address] 69761 Sedimentation Rateon 018 Sedimentation Rate 97 mm High 0-20 [facility] Comment on above: Performed By: #### L ACDS, TROPI, PRCAL, MYCM #### [facility] [address] [place] [address] 63283 CBC with Diffon 08-16-2018 Abs. Basophil 0.00 k/uL Normal 0.00-0.20 [facility] Comment on above: Performed By: #### L ACDS, TROPI, PRCAL, MYCM #### [address] [address] Abs.Imm.Granulocyte 0.11 k/uL Normal 0.00-0.30 [facility] Comment on above: Performed By: #### L ACDS, TROPI, PRCAL, MYCM #### [address] [address] Abs.Neutrophil (Seg) 4.60 k/uL Normal 1.50-8.10 [facility] Comment on above: Performed By: #### L ACDS, TROPI, PRCAL, MYCM #### [address] [address] Basophils/100 WBC (Bld) 0 % Normal 0-2 [facility] Comment on above: Performed By: #### L ACDS, TROPI, PRCAL, MYCM #### [address] [address] Eosinophils #/vol (Bld) 0.00 10*3/uL Normal 0.00-0.44 [facility] Comment on above: Performed By: #### L ACDS, TROPI, PRCAL, MYCM #### [address] [address] Eosinophils/100 WBC (Bld) 0 % Low 1-4 [facility] Comment on above: Performed By: #### L ACDS, TROPI, PRCAL, MYCM #### [address] [address] Immature granulocytes #/vol (Bld) 2 % High 0 [facility] Comment on above: Performed By: #### L ACDS, TROPI, PRCAL, MYCM #### [address] [address] Lymphocytes #/vol (Bld) 0.67 10*3/uL Low 1.10-3.70 [facility] Comment on above: Performed By: #### L ACDS, TROPI, PRCAL, MYCM #### [address] [address] Lymphocytes/100 WBC (Bld) 12 % Low 24-43 [facility] Comment on above: Performed By: #### L ACDS, TROPI, PRCAL, MYCM #### [address] [address] Monocytes #/vol (Bld) 0.22 10*3/uL Normal 0.10-1.20 [facility] Comment on above: Performed By: #### L ACDS, TROPI, PRCAL, MYCM #### [address] [address]86 Monocytes/100 WBC (Bld) 4 % Normal 3-12 [facility] Comment on above: Performed By: #### L ACDS, TROPI, PRCAL, MYCM #### [address] [address] Morphology Interp Rehan (Bld) ANISOCYTOSIS PRESENT Normal [facility] Comment on above: Result Comment: INCR EASED BANDS PRESENT 1+ TEARDROPS Performed By: #### L ACDS, TROPI, PRCAL, MYCM #### [address] [address] Neutrophil (Seg) 82 % High 36-65 [facility] Comment on above: Performed By: #### L ACDS, TROPI, PRCAL, MYCM #### [facility] [address] [place] [address] 31010 Erythrocyte distribution width Ratio (RBC) 15.1 % High 11.8-14.4 [facility] Comment on above: Performed By: #### L ACDS, TROPI, PRCAL, MYCM #### [address] [address] Hematocrit Volume Fraction (Bld) 34.1 % Low 36.3-47.1 [facility] Comment on above: Performed By: #### L ACDS, TROPI, PRCAL, MYCM #### [facility] [address] [place] [address] 75521 Hemoglobin mass conc (Bld) 10.0 g/dL Low 11.9-15.1 [facility] Comment on above: Performed By: #### L ACDS, TROPI, PRCAL, MYCM #### [facility] [address] [place] [address] 30573 MCH Entitic mass (RBC) 28.7 pg Normal 25.2-33.5 [facility] Comment on above: Performed By: #### L ACDS, TROPI, PRCAL, MYCM #### [facility] [address] [place] [address] 47669 MCHC mass conc (RBC) 29.3 g/dL Normal 28.4-34.8 [facility] Comment on above: Performed By: #### L ACDS, TROPI, PRCAL, MYCM #### [facility] [address] [place] [address] 55271 MCV Entitic volume (RBC) 98.0 fL Normal 82.6-102.9 [facility] Comment on above: Performed By: #### L ACDS, TROPI, PRCAL, MYCM #### [facility] [address] [place] [address] 45399 NRBC Automated 0.0 per 100 WBC Normal 0.0 [facility] Comment on above: Performed By: #### L ACDS, TROPI, PRCAL, MYCM #### [facility] [address] [place] [address] 74846 Platelet mean volume Entitic volume (Bld) 11.1 fL Normal 8.1-13.5 [facility] Comment on above: Performed By: #### L ACDS, TROPI, PRCAL, MYCM #### [facility] [address] [place] [address] 54299 Platelets #/vol (Bld) 119 10*3/uL Low 138-453 [facility] Comment on above: Performed By: #### L ACDS, TROPI, PRCAL, MYCM #### [address] [address] RBC #/vol (Bld) 3.48 10*6/uL Low 3.95-5.11 [facility] Comment on above: Performed By: #### L ACDS, TROPI, PRCAL, MYCM #### [facility] [address] [place] [address] 06359 WBC #/vol (Bld) 5.6 10*3/uL Normal 3.5-11.3 [facility] Comment on above: Performed By: #### L ACDS, TROPI, PRCAL, MYCM #### [address] [address]992 Auto Diff Performed NOT REPORTED Normal [facility] Comment on above: Performed By: #### L ACDS, TROPI, PRCAL, MYCM #### [address] [address] Platelets #/vol (Bld) NOT REPORTED Normal [facility] Comment on above: Performed By: #### L ACDS, TROPI, PRCAL, MYCM #### [facility] [address] [place] [address] 33315 RBC morphology finding Nom (Bld) NOT REPORTED Normal [facility] Comment on above: Performed By: #### L ACDS, TROPI, PRCAL, MYCM #### [facility] [address] [place] [address] 93734 WBC Morphology NOT REPORTED Normal [facility] Comment on above: Performed By: #### L ACDS, TROPI, PRCAL, MYCM #### [employer] [address] [place] [address] CT HEAD WO CONTRASTon 2017 CT HEAD [...] Erica Angeles MD 08/16/18 Final result Normal [facility] Calcium, [employer] 08-16-2018 Calcium mass conc 0.99 mmol/L Low 1.13-1.33 [facility] Comment on above: Performed By: #### L ACDS, TROPI, PRCAL, MYCM #### [employer] [address] [place] [address] Comp Metabolic Pr/rfx MGon 1 10-16-2017 (cont.) Normal [facility] Comment on above: Result Comment: Aver age GFR for 30-39 years old: 107 mL/min/1.73sq m Chronic Kidney Disease: <60 mL/min/1.73sq m Kidney failure: <15 mL/min/1.73sq m eGFR calculated using average adult body mass. Additional eGFR calculator available at: http://www.globalrph.TheBlogTV/multiple_crcl_2012.htm Performed By: #### P T, CMPX, MG, CDP #### [facility] [address] [place] [address] 42637 Albumin mass conc 2.3 g/dL Low 3.5-5.2 [facility] Comment on above: Performed By: #### P T, CMPX, MG, CDP #### [facility] [address] [place] [address] 93868 Albumin/Globulin mass ratio 0.7 {ratio} Low 1.0-2.5 [facility] Comment on above: Performed By: #### P T, CMPX, MG, CDP #### [facility] [address] [place] [address] 92528 Alkaline Phos 67 U/L Normal 35-104 [facility] Comment on above: Performed By: #### P T, CMPX, MG, CDP #### [facility] [address] [place] [address] 88972 ALT enzyme act/vol 33 U/L Normal 5-33 [facility] Comment on above: Performed By: #### P T, CMPX, MG, CDP #### [facility] [address] [place] [address] 65329 Anion gap molar conc 11 mmol/L Normal 9-17 [facility] Comment on above: Performed By: #### P T, CMPX, MG, CDP #### [facility] [address] [place] [address] 79546 AST enzyme act/vol 41 U/L High <32 [facility] Comment on above: Performed By: #### P T, CMPX, MG, CDP #### [facility] [address] [place] [address] 04793 Bilirubin Ql (U) 0.40 mg/dL Normal 0.3-1.2 [facility] Comment on above: Performed By: #### P T, CMPX, MG, CDP #### [facility] [address] [place] [address] 75228 Calcium mass conc 7.3 mg/dL Low 8.6-10.4 [facility] Comment on above: Performed By: #### P T, CMPX, MG, CDP #### [address] [address] Chloride molar conc 105 mmol/L Normal 98-107 [facility] Comment on above: Performed By: #### P T, CMPX, MG, CDP #### [facility] [address] [place] [address] 92587 CO2 molar conc 18 mmol/L Low 20-31 [facility] Comment on above: Performed By: #### P T, CMPX, MG, CDP #### [facility] [address] [place] [address] 74288 Creatinine mass conc 1.09 mg/dL High 0.50-0.90 [facility] Comment on above: Performed By: #### P T, CMPX, MG, CDP #### [facility] [address] [place] [address] 66294 GFR, Amer >60 Normal >60 [facility] Comment on above: Performed By: #### P T, CMPX, MG, CDP #### [facility] [address] [place] [address] 04430 GFR,non Amer 56 mL/min Low >60 [facility] Comment on above: Performed By: #### P T, CMPX, MG, CDP #### [facility] [address] [place] [address] 53603 Glucose mass conc 128 mg/dL High 70-99 [facility] Comment on above: Performed By: #### P T, CMPX, MG, CDP #### [facility] [address] [place] [address] 23251 Potassium molar conc 3.6 mmol/L Low 3.7-5.3 [facility] Comment on above: Performed By: #### P T, CMPX, MG, CDP #### [facility] [address] [place] [address] 13495 Protein mass conc 5.5 g/dL Low 6.4-8.3 [facility] Comment on above: Performed By: #### P T, CMPX, MG, CDP #### [facility] [address] [place] [address] 22691 Sodium molar conc 134 mmol/L Low 135-144 [facility] Comment on above: Performed By: #### P T, CMPX, MG, CDP #### [facility] [address] [place] [address] 27280 Urea nitrogen mass conc 17 mg/dL Normal 6-20 [facility] Comment on above: Performed By: #### P T, CMPX, MG, CDP #### [facility] [address] [place] [address] 35733 BUN/CRE Ratio NOT REPORTED Normal -20 [facility] Comment on above: Performed By: #### P T, CMPX, MG, CDP #### [facility] [place] [address] [place] [id number] Staging: NOT REPORTED Normal [facility] Comment on above: Performed By: #### P T, CMPX, MG, CDP #### [facility] [place] [address] [place] [address] Lactic Acid,Whole Blon 08-16 Lactic Acid,Whole Bl 1.2 mmol/L Normal 0.7-2.1 [facility] Comment on above: Performed By: #### L ACDS, TROPI, PRCAL, MYCM #### [address] [address] Lactic Acid,Whole Bl 1.2 mmol/L Normal 0.7-2.1 [facility] Comment on above: Performed By: #### L ACWB #### [address] [address] Magnesiumon 08-16-2018 Magnesium mass conc 2.0 mg/dL Normal 1.6-2.6 [facility] Comment on above: Performed By: #### L ACDS, TROPI, PRCAL, MYCM #### [address] [address] Mycoplasma Ab,IgMon 08-16-20 18 Mycoplasma Ab,IgM 0.22 Normal <0.91 [facility] Comment on above: Result Comment: Reference Range: <=0.90 Negative 0.91-1.09 Equivocal >=1.10 Positive Performed By: #### L ACDS, TROPI, PRCAL, MYCM #### [address] [address] PTon 08-16-2018 INR Coag RelTime (PPP) 1.0 {INR} Normal [facility] Comment on above: Result Comment: Therapeutic Range: Moderate Anticoagulant Intensity: INR = 2.0-3.0 High Anticoagulant Intensity: INR = 2.5-3.5 Performed By: #### P T, CMPX, MG, CDP #### [address] [address] Prothrombin time (PT) Coag time (PPP) 11.0 s Normal 9.0-12.0 [facility] Comment on above: Performed By: #### P T, CMPX, MG, CDP #### [address] [address] Troponinon 08-16-2018 Troponin I.cardiac mass conc Normal [facility] Comment on above: Result Comment: Refe [...] diagnosis. Performed By: #### T ROPI #### [facility] [place] [address] [place] [address] Troponin I.cardiac mass conc ng/mL Normal <0.03 [facility] Comment on above: Result Comment: Trop onin T results cannot be compared to Troponin-I results. Performed By: #### T ROPI #### [address] [id number] XR CHEST (2 VW)on 08-16-2018 XR CHEST [...] Noe Mitchell MD 08/16/18 Final result Normal [facility] Lactate, Sepsison 08-15-2018 Lactic Acid,Sep Wbld 3.5 mmol/L High 0.5-1.9 [facility] Comment on above: Performed By: #### L ACDS, TROPI, PRCAL, MYCM #### [facility] [place] [address] [place] [address] Lactic Acid, Sepsis NOT REPORTED Normal 0.5-1.9 [facility] Comment on above: Performed By: #### L ACDS, TROPI, PRCAL, MYCM #### [facility] [place] [address] [place] [address] [id number] Legionella Ag, Uron 08-15-20 18 Legionella Ag, [...] this test. Report Status FINAL 08/15/2018 Normal [facility] Comment on above: Performed By: #### U LAG #### [employer] [address] [place] [address] Procalcitoninon 08-15-2018 Protein mass conc 3.39 ng/mL High <0.09 [facility] Comment on above: Result Comment: Suspected Sepsis: [...] entered into the Change in Procalcitonin Calculator ([email or web address]) to determine the patient's Mortality Risk Prognosis Performed By: #### L ACDS, TROPI, PRCAL, MYCM #### [employer] [facility] [place] [address] Strep pneum Ag,CSF/Uron 08-05 Strep pneum Ag,CSF/Ur Specimen Descripti on .CLEAN CATCH URINE Special Requests NOT REPORTED Direct Exam NEGATIVE: Strep pneumoniae antigen not detected Report Status FINAL 08/15/2018 Normal [facility] Comment on above: Performed By: #### S PAG #### [facility] [address] [place], [place] [id number] Troponinon 08-15-2018 Troponin I.cardiac mass conc ng/mL Normal <0.03 [facility] Comment on above: Result Comment: Trop onin T results cannot be compared to Troponin-I results. Performed By: #### L ACDS, TROPI, PRCAL, MYCM #### [employer] [address] [place], [place] [id number] Troponin I.cardiac mass conc Normal [facility] Comment on above: Result Comment: Refe [...] #### L ACDS, TROPI, PRCAL, MYCM #### [facility] [address] [place], [place] [phone] Urinalysison 11-18-2017 Bilirubin, Urine Negative Invalid Interpretation Code NEG;NEGATIVE [facility] Blood, Urine Moderate Abnormal NEG;NEGATIVE [facility] Interpretation and review of laboratory results Abnormal Invalid Interpretation Code [facility] Nitrite, Urine Negative Invalid Interpretation Code NEG;NEGATIVE [facility] Protein, Urine Negative Invalid Interpretation Code NEG;NEGATIVE mg/dL [facility] RBCs, Urine 1 /HPF Invalid Interpretation Code 0 - 5 [facility] Squamous Epithelial < 1 Invalid Interpretation Code 0 - 40 /HPF [facility] Urine, bacteria in sediment Rare Invalid Interpretation Code NS;RARE /HPF [facility] Urine, character Hazy Invalid Interpretation Code [facility] Urine, color Yellow Invalid Interpretation Code [facility] Urine, glucose presence Negative Invalid Interpretation Code NEG;NEGATIVE mg/dL [facility] Urine, ketones presence Negative Invalid Interpretation Code NEG;NEGATIVE mg/dL [facility] Urine, leukocyte esterase presence Small Abnormal Negative [facility] Urine, pH 6.0 [pH] Invalid Interpretation Code 4.5 - 8.0 [facility] Urine, specific gravity 1.014 1 Invalid Interpretation Code 1.003 - 1.029 [facility] Urobilinogen, Urine < 2.0 Invalid Interpretation Code <2 mg/dL [facility] WBCs, Urine 6 /HPF High 0 - 5 [facility] CBC and Differentialon 11-17 Basophils 0.7 % Invalid Interpretation Code [facility] Basophils 0.1 K/mcL Invalid Interpretation Code 0 - 0.2 [facility] Eosinophils 0.2 K/mcL Invalid Interpretation Code 0 - 0.5 [facility] Erythrocytes (RBC) 3.97 M/mcL Invalid Interpretation Code 3.7 - 5.0 [facility] Hematocrit (HCT) 35.7 % Invalid Interpretation Code 34.4 - 44.8 % [facility] Hemoglobin (HGB) 12.2 g/dL Invalid Interpretation Code 11.6 - 15.4 g/dL [facility] Interpretation and review of laboratory results Abnormal Invalid Interpretation Code [facility] Lymphocytes 2.1 K/mcL Invalid Interpretation Code 1.0 - 3.7 [facility] MCH 30.6 pg Invalid Interpretation Code 27.9 - 33.9 pg [facility] MCHC 34.0 g/dL Invalid Interpretation Code 33.1 - 35.1 g/dL [facility] MCV 89.8 fL Invalid Interpretation Code 82.6 - 98.9 [facility] Monocytes 0.6 K/mcL Invalid Interpretation Code 0.1 - 0.6 [facility] Neutrophils 6.6 K/mcL Invalid Interpretation Code 1.2 - 6.9 [facility] Platelet mean volume (PMV) 8.6 fL Invalid Interpretation Code 7.0 - 10.6 [facility] Platelets 196 K/mcL Invalid Interpretation Code 162 - 402 [facility] RDW-CA 15.0 % High 10 - 14.4 % [facility] Segmented Neut 69.6 % Invalid Interpretation Code [facility] T8 suppressor/100 cells 1.8 10*3/uL Invalid Interpretation Code [facility] T8 suppressor/100 cells 21.8 10*3/uL Invalid Interpretation Code [facility] T8 suppressor/100 cells 6.1 10*3/uL Invalid Interpretation Code [facility] WBC (Leukocytes) 9.5 K/mcL Invalid Interpretation Code 3.4 - 10.6 [facility] Comprehensive Metabolic Pane ananda 11-17-2017 Alanine aminotransferase (ALT) 18 U/L Invalid Interpretation Code 14 - 65 U/L [facility] Albumin 3.1 g/dL Low 3.2 - 5.2 g/dL [facility] Alkaline phosphatase (ALP) 78 U/L Invalid Interpretation Code 40 - 140 U/L [facility] Aspartate aminotransferase (AST) 7 U/L Invalid Interpretation Code 0 - 45 U/L [facility] Calcium 8.6 mg/dL Invalid Interpretation Code 8.4 - 10.2 mg/dL [facility] Chloride 106 mmol/L Invalid Interpretation Code 98 - 108 mmol/L [facility] CO2 27 mmol/L Invalid Interpretation Code 21 - 32 mmol/L [facility] Creatinine 1.13 mg/dL High 0.4 - 1.1 mg/dL [facility] eGFR (black) mL/min/{1.73_m2} Invalid Interpretation Code ml/min/1.73sq .m [facility] eGFR (non-black) 54 mL/min/{1.73_m2} Low >60 [facility] Glucose 113 mg/dL High 70 - 99 mg/dL [facility] Interpretation and review of laboratory results Abnormal Invalid Interpretation Code [facility] Potassium 3.7 mmol/L Invalid Interpretation Code 3.5 - 5.1 mmol/L [facility] Protein 6.8 g/dL Invalid Interpretation Code 6 - 8 g/dL [facility] Sodium 140 mmol/L Invalid Interpretation Code 135 - 145 mmol/L [facility] Urea nitrogen 17 mg/dL Invalid Interpretation Code 8 - 25 mg/dL [facility] Urine, bilirubin presence 0.4 mg/dL Invalid Interpretation Code 0.3 - 1.2 mg/dL [facility] Lipaseon 11-17-2017 Lipase 167 U/L Invalid Interpretation Code 73 - 393 U/L [facility] Vital Signs Date Time Vital Sign Value Performing Clinician Faci lity 03-03-2023 14:44-0400 Body temperature 98.49 [degF] MASSIMO Shook DPM Work Phone: [facility] 03-03-2023 14:44-0400 Diastolic blood pressure 87 mm[Hg] MASSIMO Shook DPM Work Phone: [facility] 03-03-2023 14:44-0400 Heart rate 94 /min MASSIMO Shook DPM Work Phone: [facility] 03-03-2023 14:44-0400 Systolic blood pressure 139 mm[Hg] MASSIMO Shook DPM Work Phone: [facility] 07-02-2022 09:36-0400 Body height 157.5 cm [employer] Work Phone: [facility] 07-02-2022 09:36-0400 Body mass index (BMI) [Ratio] 38.67 kg/m2 [employer] Work Phone: [facility] 07-02-2022 09:36-0400 Body weight 95.89 kg [employer] Work Phone: [facility] 09-16-2020 20:53-0500 BMI (Body Mass Index) 39.32 kg/m2 [facility] [place] 09-16-2020 20:53-0500 Body Temperature 99.5 [degF] [place], [place] 09-16-2020 20:53-0500 Body weight 97.52 kg [facility] 09-16-2020 20:53-0500 BP Diastolic 109 mm[Hg] [facility] 09-16-2020 20:53-0500 BP Systolic 189 mm[Hg] [facility] [place] 09-16-2020 20:53-0500 Height 157.5 cm [facility] [place] 09-16-2020 20:53-0500 Pulse (Heart Rate) 99 /min [facility] 09-16-2020 20:53-0500 Pulse Oximetry 96 % [facility] [place] 09-16-2020 20:53-0500 Respiratory Rate 18 /min [facility] [place] [place] Encounters Encounter Date Encounter Type Care Provider Facility Start: 05-10-2024 End: 05-10-2024 ambulatory HEATHER [facility] Start: 05-10-2024 End: 05-10-2024 Subsequent hospital visit by physician Felipe Adam MD Work Phone: [facility] Start: 05-10-2024 End: 05-10-2024 ambulatory LORE VARGAS Not Available Start: 05-06-2024 End: 05-08-2024 ambulatory [facility] Start: 05-02-2024 End: 05-02-2024 ambulatory [facility]ELIPE BACK [facility] Start: 03-02-2024 End: 03-02-2024 ambulatory [facility] Start: 02-15-2024 End: 02-15-2024 ambulatory Frances Harris Facility:[facility] Start: 02-15-2024 End: 02-15-2024 ambulatory DPM Frances [facility] Work Phone: [facility] Work Phone: Start: 02-15-2024 End: 02-15-2024 Departed Referred DPM Frances [facility] Work Phone: [facility] Start: 02-10-2024 End: 02-10-2024 ambulatory [facility]ELIPE BACK [facility] Start: 01-29-2024 End: 01-29-2024 ambulatory [facility]ELIPE BACK [facility] Start: 10-29-2023 End: 10-29-2023 ambulatory TIFFANIE CASAS Not Available Start: 08-23-2023 End: 08-25-2023 ambulatory TIFFANIE CASAS [facility] Start: 08-20-2023 End: 08-20-2023 ambulatory TIFFANIE CASAS Not Available Start: 06-15-2023 End: 06-15-2023 Subsequent hospital visit by physician Felipe Adam MD Work Phone: [facility] Comment on above: Mixed hyperlipidemia Start: 06-15-2023 End: 06-17-2023 ambulatory [facility] Start: 05-17-2023 End: 05-17-2023 ambulatory [facility] Start: 04-03-2023 ambulatory FELIPE BACK [facility] Start: 03-03-2023 End: 03-07-2023 ambulatory ROBBIN SHOOK [facility] Ambulatory Start: 03-03-2023 End: 03-03-2023 Office outpatient new 45 minutes MASSIMO Shook DPM Work Phone: [facility] Comment on above: Charcot arthropathy of midfoot (Primary Dx); Gastrocnemius equinus, unspecified laterality; Foot pain, left Start: 02-11-2023 End: 02-12-2023 ambulatory FRANCES Weston [facility] Facility:[facility]1 Start: 02-05-2023 End: 02-05-2023 Subsequent hospital visit by physician Felipe Adam MD Work Phone: [facility] Laboratory Comment on above: Pelvic pressure in f emale Start: 02-04-2023 End: 02-05-2023 ambulatory FRANCES [facility] Facility:[facility]1 Start: 01-28-2023 End: 01-29-2023 ambulatory [facility] Facility:H1 Start: 01-06-2023 End: 01-06-2023 Emergency department patient visit [facility] Start: 07-09-2022 End: 07-09-2022 Subsequent hospital visit by physician Samantha Lino RD, LD Work Phone: [facility] Diet and Nutrition Comment on above: Arrived Start: 07-02-2022 End: 07-02-2022 Subsequent hospital visit by physician [facility] Work Phone: [facility] Diabetic Education Start: 06-25-2022 End: 06-27-2022 Subsequent hospital visit by physician [facility] Additional Xray [facility] Comment on above: Foreign body (FB) in soft tissue Start: 06-25-2022 End: 06-27-2022 Subsequent hospital visit by physician [facility] MRI Comment on above: Pain of foot, unspec ified laterality; Closed nondisplaced fracture of second metatarsal bone of left foot, initial encounter; Closed nondisplaced fracture of lateral cuneiform of left foot, initial encounter Start: 05-27-2022 End: 2022 Subsequent hospital visit by physician [facility] Comment on above: Neck mass Start: 04-28-2022 End: 04-29-2022 ambulatory [facility] Start: 04-28-2022 End: 04-28-2022 Subsequent hospital [...] Start: 02-04-2022 End: 02-04-2022 Patient encounter procedure [facility] [address] Start: 02-03-2022 End: 02-03-2022 Subsequent hospital visit by physician Hilaria Trujillo [facility] Start: 01-29-2022 End: 01-29-2022 Subsequent hospital visit by physician Beverly Rangel [employer] [facility] Comment on above: Arrived Start: 01-27-2022 End: 01-27-2022 Subsequent hospital visit by physician Christel Donohue PT [facility] Comment on above: Arrived Start: 01-24-2022 End: 01-24-2022 Subsequent hospital visit by physician Vanessa Garcia PT [facility] Comment on above: Arrived Start: 01-22-2022 End: 01-22-2022 Subsequent hospital visit by physician Beverly Rangel [facility] [employer] Start: 01-17-2022 End: 01-17-2022 Subsequent hospital visit by physician Beverly Rangel [facility] [facility] Comment on above: Arrived Start: 01-13-2022 End: 01-13-2022 Subsequent hospital visit by physician Christel Donohue PT [facility] Start: 01-03-2022 End: 01-03-2022 Subsequent hospital visit by physician Beverly Rangel [employer] [facility] Comment on above: Arrived Start: 12-31-2021 End: 12-31-2021 Subsequent hospital visit by physician Lore Herman OT [facility] Comment on above: Arrived Start: 12-30-2021 End: 12-30-2021 Subsequent hospital visit by physician Lore Herman OT [facility] Comment on above: Arrived Start: 12-23-2021 End: 12-23-2021 Subsequent hospital visit by physician Lore Herman OT [facility] Comment on above: Arrived Start: 11-29-2021 End: 11-29-2021 ambulatory FELIPE [facility] Start: 08-01-2021 End: 08-01-2021 Subsequent hospital visit by physician Felipe Adam MD Work Phone: [facility] Comment on above: Frequent UTI; Urinary urgency; Urinary frequency Start: 07-11-2021 End: 07-11-2021 Subsequent hospital visit by physician Felipe Adam MD Work Phone: [facility] Comment on above: Frequent UTI; Urinary urgency; Urinary frequency Start: 06-11-2021 End: 06-11-2021 Subsequent hospital visit by physician Felipe Adam MD Work Phone: [facility] Comment on above: Acute cystitis with hematuria; Recurrent UTI Start: 05-27-2021 End: 05-27-2021 Subsequent hospital visit by physician Felipe Adam MD Work Phone: [facility] Comment on above: Difficult or painful urination Start: 05-20-2021 End: 05-20-2021 Subsequent hospital visit by physician Felipe Adam MD Work Phone: [facility] Start: 04-13-2021 End: 04-13-2021 Subsequent hospital visit by physician Felipe Adam MD Work Phone: [facility] Comment on above: Acute cystitis with hematuria Start: 02-13-2021 End: 02-13-2021 Subsequent hospital visit by physician [facility] Andriy19 Pat Screening Schedule [facility] Comment on above: Suspected COVID-19 v irus infection Start: 01-21-2021 End: 01-21-2021 Subsequent hospital visit by physician [facility] Bryantpr19 Pat Screening Schedule [facility] Comment on above: Viral illness Start: 11-15-2020 End: 11-15-2020 Subsequent hospital visit by physician [place] [id number] Pat Screening Schedule [facility] Comment on above: Arrived Start: 09-16-2020 End: 09-16-2020 Emergency department patient visit Robbin Rooney Work Phone: [facility] ED Comment on above: Acute thoracic back pain, unspecified back pain laterality (Primary Dx) Start: 08-24-2020 End: 08-24-2020 Subsequent hospital visit by physician Felipe Adam [facility] Comment on above: Epidural abscess Start: 08-08-2020 End: 08-08-2020 Subsequent hospital visit by physician Felipe Adam [facility] Comment on above: SOB (shortness of br eath) Start: 07-24-2020 End: 07-24-2020 Subsequent hospital visit by physician Felipe Adam [facility] Comment on above: Epidural abscess Start: 06-07-2020 End: 06-07-2020 Subsequent hospital visit by physician Felipe Adam [facility] Start: 05-25-2020 End: 05-25-2020 Subsequent hospital visit by physician Felipe Adam [facility] Comment on above: Vitamin D deficiency ; Mixed hyperlipidemia; Hyperglycemia Start: 12-14-2019 End: 12-14-2019 Subsequent hospital visit by physician Felipe Adam [facility] Comment on above: MRSA (methicillin re sistant Staphylococcus aureus) septicemia ([facility]) Start: 09-24-2019 End: 09-24-2019 Subsequent hospital visit by physician Feliep Adam MD Work Phone: [facility] Start: 09-12-2019 End: 09-12-2019 Subsequent hospital visit by physician Felipe Adam MD Work Phone: [facility] Start: 08-29-2019 End: 08-29-2019 Subsequent hospital visit by physician [facility] Schedule [facility] Comment on above: Arrived Start: 07-28-2019 End: 07-30-2019 Subsequent hospital visit by physician [place] Additional [facility] Comment on above: MRSA (methicillin re sistant Staphylococcus aureus) septicemia (HCC) Start: 06-17-2019 End: 06-17-2019 Subsequent hospital visit by physician Felipe Adam [facility] Laboratory Comment on above: MRSA (methicillin re sistant Staphylococcus aureus) infection Start: 02-03-2019 End: 02-04-2019 Patient encounter procedure TIFFANIE CASAS [facility] Start: 02-03-2019 End: 02-03-2019 Subsequent hospital visit by physician Tiffanie Casas Work Phone: [facility] MRI Comment on above: Brachial neuritis; Peripheral nerve disorder; Spasm of muscle Start: 11-10-2018 End: 11-10-2018 Patient encounter procedure Andrey Early Facility:[facility] Start: 10-18-2018 End: 10-18-2018 Patient encounter procedure Andrey Early Work Phone: [facility] Start: 10-03-2018 Patient encounter procedure Dav [place] Facility:[facility] Start: 10-03-2018 End: 10-03-2018 Patient encounter procedure [facility] Start: 09-20-2018 End: 09-21-2018 Patient encounter procedure Gosia [place] Facility:[facility] Start: 09-20-2018 Patient encounter procedure Facility:[id number] Start: 09-13-2018 Patient encounter procedure GOSIA H[place]MAN [facility] Start: 09-06-2018 End: 09-06-2018 Patient encounter procedure Historical Provider [facility] Start: 08-31-2018 End: 08-31-2018 Patient encounter procedure Historical [facility] Start: 08-27-2018 End: 08-28-2018 Patient encounter procedure Gosia [place] Facility:[facility] Start: 08-27-2018 Patient encounter procedure Facility:[id number] Start: 08-15-2018 End: 08-25-2018 Evaluation and management of inpatient JV APPLE [facility] Start: 04-02-2018 End: 04-02-2018 Patient encounter procedure Melchor Calderon Facility:[facility] Start: 03-23-2018 Patient encounter procedure Shanice Juares Facility:[facility] Start: 02-04-2018 End: 02-04-2018 Ambulatory Melchor Weston [facility] Start: 11-24-2017 Patient encounter procedure [facility] Start: 11-17-2017 End: 11-17-2017 Ambulatory Ceferino Corley Work Phone: [facility] Start: 10-20-2017 End: 10-20-2017 Ambulatory [facility] Start: 10-20-2017 Patient encounter procedure [facility] Start: 10-09-2017 Ambulatory [facility] Start: 10-09-2017 End: 10-09-2017 Patient encounter procedure [facility] Start: 09-16-2017 Patient encounter procedure [facility] Start: 08-03-2017 Ambulatory [facility] Start: 03-31-2017 End: 03-31-2017 Ambulatory SHANICE GOLDSTEIN MOR [facility] Procedures Date Procedure Procedure Detail Performing Clinician Start: 05-10-2024 Renal function panel Soumya Forbes MD Work Phone: Start: 05-10-2024 Urnls dip stick/tabl et rgnt auto w/o microscopy Heather Forbes MD Work Phone: Start: 06-15-2023 Lipid panel Felipe Adam MD [...] MD Work Phone: Start: 01-21-2021 COVID-19 Pattie Tafoya lliams [employer] - [employer] DES[employer] Work Phone: Start: 11-15-2020 COVID-19 GosiaTae flores Work Phone: Start: 09-16-2020 Urnls dip [...] [place] Work Phone: Start: 09-24-2019 Hemoglobin glycosyla jmaia a1c Janel Allen [employer]AF[employer] TE[employer]ER - [employer] DES[employer] Work Phone: Start: 09-24-2019 VITAMIN B12 & FOLATE Kevin Allen [employer]AF[employer] TE[employer]ER - [employer] DES[employer]ER Work Phone: Start: 07-28-2019 Radex spine cervical 4 or 5 views Azalea Knight Work Phone: Start: 07-28-2019 Blood count complete auto&auto difrntl wbc Azalea Knight [employer]AF[employer] TE[employer]ER - [employer] DES[employer]ER Work Phone: Start: 07-28-2019 C-reactive protein Azalea Knight [employer]AF[employer] TE[employer]ER - [employer] DES[employer]ER Work Phone: Start: 06-17-2019 Albumin serum plasma [...] Unless otherwise noted, all testing performed by [facility] [address] [place], [place] [address] CLIA: [id number] [employer] Inspector: Harshad Solano M.D. Start: 09-06-2018 End: 09-06-2018 LABS (OUTSIDE) Historical Provider Start: 08-31-2018 End: 08-31-2018 LABS (OUTSIDE) Historical Provider Start: 08-25-2018 IP CONSULT TO HOME C ARE NEEDS JVMARISABEL APPLE Start: 08-25-2018 Assay of magnesium WASE EM APPLE Start: 08-25-2018 Basic metabolic pane l calcium total JV APPLE Start: 08-25-2018 Blood count complete auto&auto difrntl wbc JV APPLE Start: 08-25-2018 Procalcitonin (pct) WAS MARISABEL CASASAN Start: 08-25-2018 DISCHARGE PATIENT WASSAMIR APPLE Start: 08-25-2018 PULSE OXIMETRY, CONTINUOUS JVMARISABEL [...] JV ZECHARIAH Start: 08-23-2018 Reticulated platelet assay JV APPLE Start: 08-23-2018 PULSE OXIMETRY, CONTINUOUS JV APPLE Start: 08-23-2018 PULSE OXIMETRY, CONTINUOUS JVMARISABEL APPLE Start: 08-22-2018 PULSE OXIMETRY, CONTINUOUS JV APPLE Start: 08-22-2018 PULSE OXIMETRY, CONTINUOUS JVMARISABEL APPLE Start: 08-22-2018 PULSE OXIMETRY, CONTINUOUS JVMARISABEL APPLE Start: 08-22-2018 INCENTIVE SPIROMETRY RT JV ZECHARIAH Start: 08-22-2018 INITIATE OXYGEN THER APY PROTOCOL JV ZECHARIAH Start: 08-22-2018 PULSE OXIMETRY, CONTINUOUS JV APPLE Start: 08-22-2018 Assay of magnesium SHOAIB APPLE Start: 08-22-2018 Blood count complete auto&auto difrntl wbc JV ZECHARIAH Start: 08-22-2018 VANCOMYCIN, TROUGH SHOAIB APPLE Start: 08-22-2018 PULSE OXIMETRY, CONTINUOUS JV APPLE Start: 08-22-2018 PULSE OXIMETRY, CONTINUOUS JV APPLE Start: 08-21-2018 PULSE OXIMETRY, CONTINUOUS JV APPLE Start: 08-21-2018 Procalcitonin (pct) WAS [facility] ZECHARIAH Start: 08-21-2018 PULSE OXIMETRY, CONTINUOUS JV ZECHARIAH Start: 08-21-2018 PULSE OXIMETRY, CONTINUOUS JV ZECHARIAH Start: 08-21-2018 Mri lower extrem oth /thn jt w/o & w/contr matr JV ZECHARIAH Start: 08-21-2018 INCENTIVE SPIROMETRY RT JV ZECHARIAH Start: 08-21-2018 INITIATE OXYGEN THER APY PROTOCOL JV ZECHARIAH Start: 08-21-2018 PULSE OXIMETRY, CONTINUOUS JV ZECHARIAH Start: 08-21-2018 Assay of magnesium SHOAIB APPLE Start: 08-21-2018 Blood count complete auto&auto difrntl wbc JV ZECHARIAH Start: 08-21-2018 PULSE OXIMETRY, CONTINUOUS JV APPLE [...] canal lum bar w/o & w/contr matrl VJ APPLE Start: 08-19-2018 Mri spinal canal tho racic w/o & w/contr matrl JV APPLE Start: 08-19-2018 PULSE OXIMETRY, CONTINUOUS JV APPLE Start: 08-19-2018 INCENTIVE SPIROMETRY RT JV APPLE Start: 08-19-2018 INITIATE OXYGEN THER APY PROTOCOL JV APPLE Start: 08-19-2018 PULSE OXIMETRY, CONTINUOUS JV APPLE Start: 08-19-2018 IP CONSULT TO IV TEAM W MITCHEL APPLE Start: 08-19-2018 Assay of magnesium SHOAIB CASASAN Start: 08-19-2018 Blood count complete auto&auto difrntl wbc JV APPLE Start: 08-19-2018 PULSE OXIMETRY, CONTINUOUS JV APPLE Start: 08-19-2018 PULSE OXIMETRY, CONTINUOUS JV APPLE Start: 08-18-2018 PULSE OXIMETRY, CONTINUOUS JV APPLE Start: 08-18-2018 PULSE OXIMETRY, CONTINUOUS JV APPLE Start: 08-18-2018 PULSE OXIMETRY, CONTINUOUS JV APPLE Start: 08-18-2018 TELEMETRY MONITORING ME BRENDA APPLE Start: 08-18-2018 INCENTIVE SPIROMETRY RT [...] Start: 08-16-2018 IP CONSULT TO IV TEAM Jone APPLE Start: 08-16-2018 Assay of magnesium SHOAIB [...] JV Carreon Start: 08-15-2018 INCENTIVE SPIROMETRY RT JVMARISABEL APPLE Start: 08-15-2018 INITIATE OXYGEN THER APY [...] of 2) Shingles Vaccine (1 of 2) [facility] [place] Start: 05-02-2029 Lipid panel Lipids [facility] Start: 04-12-2027 Lipid panel Lipids [facility] Start: 05-14-2026 Lipid panel [facility] Start: 05-25-2025 Lipid panel Lipid screen [place] Start: 05-10-2025 GFR test (Diabetes, CKD 3-4, OR last GFR 15-59) GFR test (Diabetes, CKD 3-4, OR last GFR 15-59) [facility] Start: 05-02-2025 Hemoglobin A1c measurement A1C test (Diabetic or Prediabetic) [facility] Start: 01-27-2025 Depression Monitoring Depression Monitoring [facility] Start: 11-11-2024 End: 11-11-2024 Patient encounter procedure 11/11/2024 1:00 PM EST Office Visit [address] [address] Felipe Adam MD [address] [place] [id number] 6 mo [facility] Comment on above: 6 mo Start: 09-24-2024 Screening for malignant neoplasm of cervix [facility] Start: 09-08-2024 DTaP/Tdap/Td vaccine (2 - Td or Tdap) DTaP/Tdap/Td vaccine (2 - Td or Tdap) [facility] Start: 09-08-2024 DTaP/Tdap/Td vaccine (2 - Td) DTaP/Tdap/Td vaccine (2 - Td) [place] Start: 09-08-2024 Tetanus vaccination [facility] Start: 08-18-2024 End: 08-18-2024 Patient encounter procedure 08/18/2024 1:30 PM EST Office Visit [facility] [address] [facility] [address] [place] [address] Luis Mclean, PA-C [address] [place] [address] [place] [address] 1 yr med chk [facility] Comment on above: 1 yr med chk Start: 05-17-2024 GFR test (Diabetes, CKD 3-4, OR last GFR 15-59) GFR test (Diabetes, CKD 3-4, OR last GFR 15-59) [facility] Start: 05-14-2024 Diabetes screen Diabetes screen [facility] Start: 05-12-2024 End: 05-12-2024 Patient encounter procedure 05/12/2024 11:00 AM EDT Office Visit [facility] Part of [address] [address] Lina Echols MD [address] [address] BUCK (obstructive sleep apnea) [facility] Part of [facility] Comment on above: BUCK (obstructive sleep apnea) Start: 05-11-2024 Lipid panel Lipid screen [place] Start: 05-11-2024 Lipid screen Lipid screen [place] Start: 05-05-2024 Influenza vaccination Flu vaccine (#1) [facility] Start: 03-23-2024 Depression Monitoring Depression Monitoring [facility] Start: 02-06-2024 GFR test (Diabetes, CKD 3-4, OR last GFR 15-59) GFR test (Diabetes, CKD 3-4, OR last GFR 15-59) [facility] Start: 02-06-2024 Hemoglobin A1c measurement A1C test (Diabetic or Prediabetic) [facility] Start: 08-13-2023 End: 08-13-2023 [facility] Start: 06-22-2023 End: 06-22-2023 Patient encounter procedure 06/22/2023 11:15 AM EDT Office Visit [facility] [address] [place] [address] Felipe Adam MD [address] [place] [address] [facility] Start: 06-05-2023 Influenza vaccination Sequential Influenza Vaccine (Season Ended) [facility] Start: 05-05-2023 Influenza vaccination [facility] Start: 04-14-2023 End: 04-14-2023 Patient encounter procedure 04/14/2023 Office Visit Family Medicine Felipe Adam MD [address] [place] [address] [facility] Start: 04-12-2023 Hemoglobin A1c measurement A1C test (Diabetic or Prediabetic) [facility] Start: 04-11-2023 Depression Monitoring Depression Monitoring [facility] Start: 04-11-2023 History and physical examination, annual for health maintenance Wellness Visit [facility] Start: 12-25-2022 End: 12-25-2022 Patient encounter procedure 12/25/2022 Office Visit Infectious Diseases Dav Hartman MD [address] [address] [facility], [facility]. Start: 09-24-2022 Diabetes screen Diabetes screen [place] Start: 08-07-2022 End: 08-07-2022 Patient encounter procedure 08/07/2022 Office Visit Urology Luis Mclean, PA-C [address] [place] [address] [facility] [place] [address] [facility] Start: 07-15-2022 End: 07-15-2022 Nursing evaluation of patient and report 07/15/2022 Nurse Only Family Medicine [facility] Start: 07-09-2022 End: 07-09-2022 Patient encounter procedure 07/09/2022 Appointment IP Unit Samantha Lino RD, LD [facility] Diet and Nutrition Start: 06-05-2022 Influenza vaccination [facility] Start: 05-20-2022 Creatinine measurement [facility] Start: 05-20-2022 Potassium [Moles/volume] in Serum or Plasma Potassium [facility] Start: 05-20-2022 Potassium monitoring Potassium monitoring [facility] Start: 05-14-2022 Creatinine measurement Creatinine monitoring [facility] Work Phone: Start: 05-14-2022 Potassium monitoring Potassium monitoring [facility] Work Phone: Start: 05-05-2022 Influenza vaccination Flu vaccine (#1) [facility] Start: 02-05-2022 End: 02-05-2022 Patient encounter procedure 02/05/2022 Appointment Physical Therapy Christel Donohue, PT [facility] Start: 02-03-2022 End: 02-03-2022 Patient encounter procedure [facility] Start: 01-30-2022 End: 01-30-2022 Patient encounter procedure [facility] Start: 01-29-2022 End: 01-29-2022 Patient encounter procedure 01/29/2022 Appointment Physical Therapy Bevelry Rangel MALE MODEL [facility] Start: 01-27-2022 End: 01-27-2022 Patient encounter procedure 01/27/2022 Appointment Physical Therapy Christel Donohue, PT [facility] Start: 01-24-2022 End: 01-24-2022 Patient encounter procedure 01/24/2022 Appointment Physical Therapy Vanessa Garcia, PT [facility] Start: 01-22-2022 End: 01-22-2022 Patient encounter procedure 01/22/2022 Appointment Physical Therapy Beverly Rangel, MALE [employer]DEL [facility] Start: 01-17-2022 End: 01-17-2022 Patient encounter procedure 01/17/2022 Appointment Physical Therapy Beverly Rangel [facility] [facility] Start: 01-10-2022 End: 01-10-2022 Patient encounter procedure 01/10/2022 Appointment Physical Therapy Christel Donohue, PT [facility] Start: 01-08-2022 End: 01-08-2022 Patient encounter procedure 01/08/2022 Appointment Physical Therapy Beverly Rangel, MALE [employer]DEL [facility] Start: 01-02-2022 End: 01-02-2022 Patient encounter procedure 01/02/2022 Appointment Occupational Therapy Judi Marie OTA [address] [place] [address] [facility] Start: 12-31-2021 Diabetes screen [facility] screen [facility] Start: 12-31-2021 End: 12-31-2021 Patient encounter procedure [facility] Start: 12-30-2021 End: 12-30-2021 Patient encounter procedure 12/30/2021 Appointment Occupational Therapy Lore Herman OT [facility] Start: 12-27-2021 End: 12-27-2021 Patient encounter procedure 12/27/2021 Appointment Occupational Therapy Eve Gaspar OTA [facility] Start: 11-14-2021 End: 11-14-2021 Patient encounter procedure 11/14/2021 Office Visit Felipe Hampton MD [address] [place] [address] [facility] Start: 10-29-2021 Depression Monitoring Depression Monitoring [employer] Start: 09-16-2021 Creatinine measurement Creatinine monitoring [employer] Phone: Start: 09-16-2021 Potassium monitoring Potassium monitoring [employer] Phone: Start: 08-01-2021 End: 08-01-2021 Patient encounter procedure 08/01/2021 Office Visit Urology Lita Weeks MD [address] [place] [address], [facility] [address] [place] [address] [facility] Start: 06-05-2021 Influenza vaccination [employer] Start: 05-25-2021 Creatinine measurement Creatinine monitoring [facility] [place] Start: 05-25-2021 HbA1c (Bld) [Mass fraction] A1C test (Diabetic or Prediabetic) [facility], [place] Start: 05-25-2021 Hemoglobin A1c measurement A1C test (Diabetic or Prediabetic) [employer] Phone: Start: 05-25-2021 Pot[facility] Start: 11-13-2020 End: 11-13-2020 Office Visit 11/13/2020 Office Visit Felipe Hampton MD [address] [place] [address] [phone] [facility] Start: 11-02-2020 Potassium monitoring Potassium monitoring [place] Start: 10-23-2020 End: 10-23-2020 Office Visit 10/23/2020 Office Visit Infectious Diseases Dav Hartman MD [address] [place], [place] [id number] [facility], [employer]. Start: 09-24-2020 HbA1c (Bld) [Mass fraction] A1C test (Diabetic or Prediabetic) [place] Start: 06-17-2020 Creatinine measurement Creatinine monitoring [place], [place] Start: 06-17-2020 Creatinine monitoring Creatinine monitoring [place], [place] Start: 06-17-2020 Potassium monitoring Potassium monitoring [place] Start: 06-12-2020 End: 06-12-2020 Office Visit 06/12/2020 Office Visit Infectious Diseases Dav Hartman MD [address] [place] [address] [phone] [facility] Start: 06-05-2020 Influenza vaccination Flu vaccine (#1) [place] Start: 03-20-2020 Cervical cancer screen Cervical cancer screen [place] Start: 03-20-2020 Screening for malignant neoplasm of cervix [facility] Start: 11-01-2019 End: 11-01-2019 Office Visit 11/01/2019 Office Visit Infectious Diseases Dav Hartman MD [address] [place] [address] [phone] [facility] Start: 07-28-2019 End: 07-28-2019 Office Visit 07/28/2019 Office Visit Dav Gay MD [address] [place], [place] [id number] [facility] Start: 06-27-2019 End: 06-27-2019 Nurse Only 06/27/2019 Nurse Only Family Medicine [facility] Start: 06-05-2019 Influenza vaccination Flu vaccine (#1) [place] Start: 06-05-2019 Influenza vaccination given SEQUENTIAL INFLUENZA VACCINE (Season Ended) [facility] Start: 2019 Screening for malignant neoplasm of breast [facility] Start: 06-05-2018 Influenza vaccination INFLUENZA VACCINE (#1) [facility] Work Phone: Start: 03-23-2018 End: 03-23-2018 Ambulatory [facility] Start: 2009 Screening for malignant neoplasm of cervix HPV (without or with Pap) [facility] Start: 2000 Screening for malignant neoplasm of cervix PAP SMEAR DISCUSSION [facility] Work Phone: Start: 1998 Third diphtheria, tetanus and acellular pertussis (DTaP) vaccination TDAP (ADULT) [facility] Work Phone: Start: 1997 Hepatitis C screening Hepatitis C Screening [facility] Start: 1997 Tetanus vaccination TETANUS [facility] Work Phone: Start: 1995 COVID-19 Vaccine (1) COVID-19 Vaccine (1) [facility] Work Phone: Start: 1994 HIV screen HIV screen [place] Start: 1994 HIV screening HIV screen [facility] Start: 1992 HIV screening HIV SCREENING DISCUSSION [facility] Work Phone: Start: 1991 COVID-19 Vaccine (1) COVID-19 Vaccine (1) [facility] Work Phone: Start: 1991 Depression Monitoring Depression Monitoring [facility] Start: 1991 Depression screening using PHQ-9 (Patient Health Questionnaire 9) score Depression Screening (PHQ-2/9) [facility] Start: 1989 Urine screening for protein Urine Microalbumin [facility] Start: 1985 Pneumococcal Vaccine: Ped or At-Risk (1 - PCV) Pneumococcal Vaccine: Ped or At-Risk (1 - PCV) [facility] Start: 1984 COVID-19 Vaccine (1) COVID-19 Vaccine (1) [facility] [employer] Start: 1982 History and physical examination, annual for health maintenance Wellness Visit [facility] Start: 1979 COVID-19 Vaccine (#1) COVID-19 Vaccine (#1) [facility] Start: 1979 Hepatitis B vaccine (1 of 3 - 3-dose series) Hepatitis B vaccine (1 of 3 - 3-dose series) [facility] [employer] End: 02-13-2021 COVID-19 COVID-19 Lab Routine Suspected COVID-19 virus infection 1 Occurrences starting 02/13/2021 until 02/13/2021 [employer] Phone: Comment on above: 1 Occurrences starting 02/13/2021 until 02/13/2021 COVID-19 COVID-19 Lab Rou luis Suspected COVID-19 virus infection 02/13/2021 3:06 PM EDT [employer] Phone: End: 08-08-2020 COVID-19 Ambulatory COVID-19 Ambulatory Lab Routine SOB (shortness of breath) 1 Occurrences starting 08/08/2020 until 08/08/2020 [facility] [employer] [place] Comment on above: 1 Occurrences starting 08/08/2020 until 08/08/2020 COVID-19 Ambulatory COVID-19 Amb ulatory Lab Routine SOB (shortness of breath) 08/08/2020 4:02 PM EST [facility] [place] End: 05-20-2021 Creatinine [Mass/volume] in Urine Creatinine, Random Urine Lab Routine Once for 1 Occurrences starting 05/20/2021 until 05/20/2021 [employer] Phone: Comment on above: Once for 1 Occurrences starting 05/20/20 21 until 05/20/2021 Creatinine [Mass/vol ume] in Urine Creatinine, Random Urine Lab Routine 05/20/2021 7:57 PM EDT [employer] Phone: End: 04-13-2021 Culture, Urine Culture, Urine Microbiology Routine Acute cystitis with hematuria 1 Occurrences starting 04/13/2021 until 04/13/2021 [employer] Phone: Comment on above: 1 Occurrences starting 04/13/2021 until 04/13/2021 Culture, Urine [employer] Phone: End: 05-27-2021 Culture, Urine Culture, Urine Microbiology Routine Difficult or painful urination 1 Occurrences starting 05/27/2021 until 05/27/2021 [employer] Phone: Comment on above: 1 Occurrences starting 05/27/2021 until 05/27/2021 End: 06-11-2021 Culture, Urine Culture, Urine Microbiology Routine Acute cystitis with hematuria Recurrent UTI 1 Occurrences starting 06/11/2021 until 06/11/2021 [employer] Phone: Comment on above: 1 Occurrences starting 06/11/2021 until 06/11/2021 End: 07-11-2021 Culture, Urine Culture, Urine Microbiology Routine Frequent UTI Urinary urgency Urinary frequency 1 Occurrences starting 07/11/2021 until 07/11/2021 [employer] Phone: Comment on above: 1 Occurrences starting 07/11/2021 until 07/11/2021 End: 08-01-2021 Culture, Urine Culture, Urine Microbiology Routine Frequent UTI Urinary urgency Urinary frequency 1 Occurrences starting 08/01/2021 until 08/01/2021 [employer] Phone: Comment on above: 1 Occurrences starting 08/01/2021 until 08/01/2021 End: 04-28-2022 Culture, Urine Culture, Urine Microbiology Routine Acute cystitis with hematuria 1 Occurrences starting 04/28/2022 until 04/28/2022 [employer] Phone: Comment on above: 1 Occurrences starting 04/28/2022 until 04/28/2022 End: 02-05-2023 Culture, Urine [employer] Phone: Comment on above: 1 Occurrences starting 02/05/2023 until 02/05/2023 End: 04-12-2022 Hemoglobin A1c/Hemoglobin.total in Blood [employer] Phone: Comment on above: 1 Occurrences starting 04/12/2022 until 04/12/2022 End: 02-05-2023 Hemoglobin A1c/Hemoglobin.total in Blood [employer] Phone: Comment on above: Once for 1 Occurrences starting 02/06/20 until 02/05/2023 End: 08-29-2019 Home Sleep Study Home Sleep Study Sleep Center Routine One Time for 1 Occurrences starting 08/29/2019 until 08/29/[address] [facility] [address] [place] Comment on above: One Time for 1 Occurrences starting 08/06 until 08/29/2019 End: 09-24-2019 Methylmalonic Acid, Serum Methylmalonic Acid, Serum Lab Routine Once for 1 Occurrences starting 09/24/2019 until 09/24/2019 [employer] Phone: Comment on above: Once for 1 Occurrences starting 09/24/20 until 09/24/2019 Methylmalonic Acid, Serum Methyl malonic Acid, Serum Lab Routine 09/24/2019 9:33 AM [employer] Phone: End: 09-24-2019 Nuclear Ab [Titer] in Serum by Immunofluorescence ALICJA Lab Routine Once for 1 Occurrences starting 09/24/2019 until 09/24/2019 [employer] Phone: Comment on above: Once for 1 Occurrences starting 09/24/20 until 09/24/2019 Nuclear Ab [Titer] i n Serum by Immunofluorescence ALICJA Lab Routine 09/24/2019 9:33 AM [employer] Phone: End: 05-20-2021 Protein, urine, random Protein, urine, random Lab Routine Once for 1 Occurrences starting 05/20/2021 until 05/20/2021 [employer] Phone: Comment on above: Once for 1 Occurrences starting 05/20/20 until 05/20/2021 Protein, urine, random Protein, urine, random Lab Routine 05/20/2021 7:57 PM EDT [employer] Phone: End: 12-14-2019 Sedimentation Rate Sedimentation Rate Lab Routine MRSA (methicillin resistant Staphylococcus aureus) septicemia (HCC) 1 Occurrences starting 12/14/2019 until 12/14/2019 [employer] Comment on above: 1 Occurrences starting 12/14/2019 until 12/14/2019 Sedimentation Rate Sedimentation Rate Lab Routine MRSA (methicillin resistant Staphylococcus aureus) septicemia (HCC) 12/14/2019 12:39 PM EDT [employer] End: 09-24-2019 Sjogrens syndrome-A extractable nuclear antibody Sjogrens syndrome-A extractable nuclear antibody Lab Routine Once for 1 Occurrences starting 09/24/2019 until 09/24/2019 [employer] Phone: Comment on above: Once for 1 Occurrences starting 09/24/20 19 until 09/24/2019 Sjogrens syndrome-A extractable nuclear antibody Sjogrens syndrome-A extractable nuclear antibody Lab Routine 09/24/2019 9:33 AM [employer] Phone: End: 09-24-2019 Sjogrens syndrome-B extractable nuclear antibody Sjogrens syndrome-B extractable nuclear antibody Lab Routine Once for 1 Occurrences starting 09/24/2019 until 09/24/2019 [employer] Phone: Comment on above: Once for 1 Occurrences starting 09/24/20 19 until 09/24/2019 Sjogrens syndrome-B extractable nuclear antibody Sjogrens syndrome-B extractable nuclear antibody Lab Routine 09/24/2019 9:33 AM [employer] Phone: End: 09-12-2019 Sleep Study with PAP Titration Sleep Study with PAP Titration Sleep Center Routine One Time for 1 Occurrences starting 09/12/2019 until 09/12/2019 [employer] Phone: Comment on above: One Time for 1 Occurrences starting 06/2019 until 09/12/2019 End: 09-24-2019 Vitamin B6 Vitamin B6 Lab Routine Once for 1 Occurrences starting 09/24/2019 until 09/24/2019 [employer] Phone: Comment on above: Once for 1 Occurrences starting 09/24/20 19 until 09/24/2019 Vitamin B6 Vitamin B6 Lab R outine 09/24/2019 9:33 AM EST [employer] Phone: Immunizations Immunization Date Immunization Notes Care Provider Yair dai 09-08-2014 tetanus toxoid, redu gaby diphtheria toxoid, and acellular pertussis vaccine, adsorbed Felipe Back [employer] [place], [place] Payers Date Payer Category Payer Self-pay [id number] [phone] 2017 Unknown 2016 Unknown [id number] 2016 Unknown xxxxxxxxxxxxxxx [id number] 2014 Medicaid [id number] [id number] 2014 Medicaid [facility] MEDICAID [employer] xxxxxxxxxxx 2014-Present xxxxxxxxxxx [id number] 1979 Unknown [id number] 2.16.840.1.201517.3.579.2.356 1979 Unknown [id number] 2.16840.1.732405.3.579.2.356 1979 Unknown [id number] 2.16.840.1.004955.3.579.2.717 1979 Unknown [id number] 2.16.840.1.836275.3.579.2.717 1979 Unknown [id number] 2.16.840.1.775212.3.579.2.175 1979 Unknown [id number] 2.16.840.1.886097.3.579.2.903 1979 Unknown [id number] 2.16.840.1.723301.3.579.2.182 1979 Unknown [id number] 2.16.840.1.286774.3.579.2.185 1979 Unknown [id number] 2.16.840.1.608723.3.579.2.903 1979 Unknown [id number] 2.16.840.1.967084.3.579.2.593 1979 Unknown [id number] 2.16.840.1.896192.3.579.2.593 1979 Unknown [id number] 2.16.840.1.178869.3.579.2.593 1979 Unknown [id number] 2.16.840.1.383259.3.579.2.903 1979 Unknown [id number] 2.16.840.1.289346.3.579.2.903 1979 Unknown [id number] 2.16.840.1.503134.3.579.2.903 1979 Unknown [id number] 2.16.840.1.118488.3.579.2.1259 1979 Unknown [id number] 2.16.840.1.319545.3.579.2.1259 1979 Unknown [id number] 2.16.840.1.008681.3.579.2.1259 1979 Unknown [id number] 2.16.840.1.322196.3.579.2.174 1979 Unknown [id number] 2.16.840.1.370636.3.579.2.174 1979 Unknown [id number] 2.16.840.1.726446.3.579.2.174 1979 Unknown [id number] 2.16.840.1.135002.3.579.2.174 1979 Unknown [id number] 2.16.840.1.291056.3.579.2.174 1979 Unknown [id number] 2.16.840.1.027421.3.579.2.174 1979 Unknown [id number] 1980 Unknown [id number] 1980 Unknown [id number] 1980 Unknown [id number] 1980 Unknown [id number] 1960 Unknown [id number] Unknown 114 Unknown [id number] Social History Date Type Detail Facility Start: 05-01-2015 End: 08-13-2023 Tobacco smoking status UTIS Never smoker [facility] Work Phone: Start: 1980 Sex Assigned At Not on file O [facility] Work Phone: Start: 05-27-2019 End: 05-08-2024 Alcohol intake [place] Start: 12-13-2019 End: 05-09-2024 Alcohol intake Current non-drinker of alcohol (finding) [place] Start: 12-09-2019 End: 05-13-2021 History SDOH Financial 4 [place] Start: 12-09-2019 End: 05-20-2022 History SDOH Food Worry 1 [place], [place] Start: 12-09-2019 History SDOH Transpo rt Med 2 [place] Start: 05-11-2020 End: 08-13-2023 Tobacco use and exposure Never used [employer] [employer] [facility] [place] Start: 10-30-2021 End: 03-02-2023 Exposure to SARS-CoV-2 (event) Not sure [employer] [place], [place] Start: 1980 Sex Assigned At Female F [facility] Start: 05-20-2022 History SDOH Financial 3 [employer] Work Phone: Start: 01-06-2023 End: 05-08-2024 History of Social function [facility] How hard is it for y ou to pay for the very basics like food, housing, medical care, and heating Not very hard [employer] Patient Health Questionnaire 9 item (PHQ-9) total score [Reported] 0 [employer] (I/We) worried wheyaritza er (my/our) food would run out before (I/we) got money to buy more. Never true [employer] At any time in the p ast 12 months, were you homeless or living in [facility] [including now]? No [facility] Start: 10-09-2020 Gender identity Identifies as female gender (finding) [employer] Start: 10-09-2020 Sexual orientation Heterosexual (fin ding) [employer] How hard is it for y ou to pay for the very basics like food, housing, medical care, and heating Somewhat hard [employer] NEGATED: Highlighted rowStart: NINF History of tobacco use Passive smoker [employer] Clinical Notes 12-23-2021 to 03-03-2023 MASSIMO Shook [...] She follows with an outside provider in [place] and was immobilized for an extended period [...] Date CHOLECYSTECTOMY 2005 COLONOSCOPY February 2014 TONSILLECTOMY 1984 Social History Socioeconomic History Marital status: Tobacco [...] & Ankle Surgery documented in this encounter [facility] 01-29-2023 Note PROCEDURE: XR ANKLE LT MIN [...] by: PIPER MERCEDES Date: 2023-01-29 07:05 [facility] 01-29-2023 Note PROCEDURE: XR ANKLE LT [...] by: PIPER MERCEDES Date: 2023-01-29 07:05 [facility] 07-09-2022 History of Present illness Narrative [...] BMR: 1573 calories Est. total calorie needs: ~4507-1683 Lab Results Component Value Date/Time TRIG 460 [...] bread Supper: pork chop or chicken, homemade serbian fries, mashed, or baked potato with broccoli [...] minutes. documented in this encounter [facility] [employer] Phone: 02-05-2022 History of Present illness Narrative [facility] Date: 02/05/2022 Patient Name: Celina Gaspar : 1980 Pt No Showed Appt- Follow up call, left message on voicemail that patient discharged, but to call if has questions or concerns. Christel Donohue, PT Date: 02/05/2022 documented in this encounter [employer] Phone: 02-05-2022 Hospital course Narrative Images from the original note were not included. [facility] Discharge Summary Patient: Celina [...] PT Date: 02/05/2022 [facility]22 History of Present illness Narrative [facility] Date: 02/03/2022 Patient Name: Celina Gaspar : 1980 Pt Cancelled Appt due to no reason for cancel. Jerica Melgar Date: 02/03/2022 [facility]: 01-29-2022 History of Present illness Narrative Images from the original note were not included. [facility] Daily Note Date: 01/29/2022 [...] Increase trunk ROM B rotation WFL-Not Met Failure Analysis Engineer Goals - Time Frame for [facility] goals : 10 Failure Analysis Engineer Goals Time Frame for [facility] goals : 10 intermediate designer goal 1: Decrease pain low back 2/10 at worst x3 days for completing normal activities [facility] goal 2: Patient to report 50% decrease in radicular symptoms L LE Post Treatment Pain: 5/10 Time In: 0859 Time Out: 09 Timed Code Treatment Minutes: 48 Minutes Total Treatment Time: 48 Minutes Beverlyglimar Rangel, MALE MODEL Date: 01/29/2022 documented in this encounter [employer] Phone: 01-27-2022 History of Present illness Narrative Images from the original note were not included. [facility] Daily Note Date: 01/27/2022 [...] Increase trunk ROM B rotation WFL-Not Met [facility] Goals - Time Frame for intermediate designer goals : 10 Failure Analysis Engineer Goals Time Frame for intermediate designer goals : 10 intermediate designer goal 1: Decrease pain low back 2/10 at worst x3 days for completing normal activities [facility] goal 2: Patient to report 50% decrease in radicular symptoms L LE Post Treatment Pain: 4/10 Time In: 15:50 Time Out : 16:19 Timed Code Treatment Minutes: 34 Minutes Total Treatment Time: 34 Minutes Christel Donohue PT Date: 01/27/2022 documented in this encounter [facility] [employer] Phone: 01-24-2022 History of Present illness Narrative Images from the original note were not included. [facility] Daily Note Date: 01/24/2022 [...] 4: Increase trunk ROM B rotation WFL Failure Analysis Engineer Goals - Time Frame for [facility] goals : 10 [facility] Goals Time Frame for intermediate designer goals : 10 [facility] goal 1: Decrease pain low back 2/10 at worst x3 days for completing normal activities intermediate designer goal 2: Patient to report 50% decrease in radicular symptoms L LE Post Treatment Pain: 5/10 Time In: 0952 Time Out: 1030 Timed Code Treatment Minutes: 38 Minutes Total Treatment Time: 38 Minutes Vanessa Garcia, PT Date: 01/24/2022 documented in this encounter [employer] Phone: 01-22-2022 History of Present illness Narrative [facility] Date: 01/22/2022 Patient Name: Celina Gaspar : 1980 Patient did not show up for her appointment. Message left on answering machine with a reminder of her next appointment on Thursday. Beverly Rangel, JENNIFER Date: 01/22/2022 documented in this encounter [employer] Phone: 01-17-2022 History of Present illness Narrative Images from the original note were not included. [facility] Daily Note Date: 01/17/2022 Patient Name: Celina Gaspar : 1980 (41 y.o.) Referring Practitioner: Liliane Sawyer APRN, PCB DESIGNER Referral Date : 12/19/21 Diagnosis: Lumbar radiculopathy [...] 4: Increase trunk ROM B rotation WFL [facility] Goals - Time Frame for intermediate designer goals : 10 intermediate designer goal 1: Decrease pain low back 2/10 at worst x3 days for completing normal activities [facility] goal 2: Patient to report 50% decrease in radicular symptoms L LE Post Treatment Pain: 5/10 Time In: 1037 Time Out: 1107 Timed Code Treatment Minutes: 30 Minutes Total Treatment Time: 30 Minutes Beverly Rangel PTA Date: 01/17/2022 documented in this encounter [employer] Phone: 01-13-2022 History of Present illness Narrative [facility] Date: 01/13/2022 Patient Name: Celina Phand : 1980 Pt Cancelled Appt due to no reason given. NABILA Metzger Date: 01/13/2022 documented in this encounter [employer] Phone: 01-03-2022 History of Present illness Narrative Images from the original note were not included. [facility] Daily Note Date: 01/03/2022 [...] 4: Increase trunk ROM B rotation WFL [facility] Goals - Time Frame for [facility] goals : 10 [facility] goal 1: Decrease pain low back 2/10 at worst x3 days for completing normal activities [facility] goal 2: Patient to report 50% decrease in radicular symptoms L LE Post Treatment Pain: 5/10 Time In: 0948 Time Out: 1028 Timed Code Treatment Minutes: 40 Minutes Total Treatment Time: 40 Minutes Beverly Rangel, JENNIFER Date: 01/03/2022 documented in this encounter [employer] Phone: 12-31-2021 History of Present illness Narrative Images from the original note were not included. [facility] Therapy Daily Note Date: 12/31/2021 [...] Time Frame for Short term goals: STG=LTG Failure Analysis Engineer Goals Time Frame for intermediate designer goals : 12 visits (01/24/2022) intermediate designer goal 1: pt to be indepenent in HEP-MET intermediate designer goal 2: Pt to demonstrate R wrist flexion to 65 degrees or more in order to engage in daily tasks-MET [facility] goal 3: Pt to demonstrate R wrist extension to 60 degrees or more in order to engage in daily tasks-MET intermediate designer goal 4: Pt to be educated on carpal tunnel do's & dont's in order to prevent further repetitive injury to wrist-MET Timed Code Treatment Minutes: 30 Minutes Time In: 915 Time Out: 945 Timed Coded Minutes: 30 Total Treatment Time: 30 THERESA Houser, OTR/L Date: 12/31/2021 documented in this encounter [employer] Phone: 12-31-2021 Hospital course Narrative Images from the original note were not included. [facility] Discharge Summary Patient: Celina [...] has been provided w/ HEP for continued pinch/dust collector treater strengthening & stretching. Therapist provided pt with handout on Carpal Tunnel Dos & Dont's to avoid re-injury. Prognosis: Fair Goals Short Term Goals Time Frame for Short term goals: STG=LTG [facility] Goals Time Frame for intermediate designer goals : 12 visits (01/24/2022) intermediate designer goal 1: pt to be indepenent in HEP-MET intermediate designer goal 2: Pt to demonstrate R wrist flexion to 65 degrees or more in order to engage in daily tasks-MET [facility] goal 3: Pt to demonstrate R wrist extension to 60 degrees or more in order to engage in daily tasks-MET [facility] goal 4: Pt to be educated on carpal tunnel do's & dont's in order to prevent further repetitive injury to wrist-MET Reason for Discharge [] Poor Follow Through [] Completion of Prescribed Sessions [x] Optimal Function Achieved [] Patient Discharged Self [x] Goals Achieved Comments: Thank you for this referral THERESA Houser, OTR/L Date: 12/31/2021 documented in this encounter [employer] Phone: 12-31-2021 History of Present illness Narrative Images from the original note were not included. [facility] Evaluation Date: 12/31/2021 Patient: [...] 4: Increase trunk ROM B rotation WFL intermediate designer goals Time Frame for intermediate designer goals : 10 [facility] goal 1: Decrease pain low back 2/10 at worst x3 days for completing normal activities [facility] goal 2: Patient to report 50% decrease in radicular symptoms L LE Patient's Goal: Decrease back pain to complete normal activities Timed Code Treatment Minutes: 15 Minutes Total Treatment Time: 45 Time In: 8:30 Time Out: 9:15 Christel Donohue, PT Date: 12/31/2021 documented in this encounter [employer] Phone: 12-30-2021 History of Present illness Narrative Images from the original note were not included. [facility] Daily Note Date: 12/30/2021 [...] Time Frame for Short term goals: STG=LTG [facility] Goals Time Frame for intermediate designer goals : 12 visits (01/24/2022) intermediate designer goal 1: pt to be indepenent in HEP-MET [facility] goal 2: Pt to demonstrate R wrist flexion to 65 degrees or more in order to engage in daily tasks-MET [facility] goal 3: Pt to demonstrate R wrist extension to 60 degrees or more in order to engage in daily tasks-MET intermediate designer goal 4: Pt to be educated on carpal tunnel do's & dont's in order to prevent further repetitive injury to wrist-MET Time In: 835 Time Out: 915 Timed Coded Minutes: 40 Total Treatment Time: 40 THERESA Houser, OTR/L Date: 12/30/2021 documented in this encounter [employer] Phone: 12-23-2021 History of Present illness Narrative Images from the original note were not included. [facility] Evaluation Date: 12/23/2021 [facility]: [facility] 1980 [id number] Referring Practitioner: Keenan Lozano MD Diagnosis: Rt [...] completing these mvmts Left Hand Strength - Dairy Farm Operator (lbs) Handle Setting 2: 54#, 50#, 53# (52.3# ave) Left Hand Strength - Pinch (lbs) Lateral: 13.5# Tip: 8# Palmar 3 point: 11# Right Hand Strength - Dairy Farm Operator (lbs) Handle Setting 2: 53#, 54#, 53# [...] Time Frame for Short term goals: STG=LTG [facility] goals Time Frame for [facility] goals : 12 visits (01/24/2022) [facility] goal 1: pt to be indepenent in HEP [facility] goal 2: Pt to demonstrate R wrist flexion to 65 degrees or more in order to engage in daily tasks [facility] goal 3: Pt to demonstrate R wrist extension to 60 degrees or more in order to engage in daily tasks [facility] goal 4: Pt to be educated on carpal tunnel do's & dont's in order to prevent further repetitive injury to wrist Patient's Goal: pt wishes to return to prior function Time In: 830 Time Out: 924 Timed Coded Minutes: 0 Total Treatment Time: 54 THERESA Houser, OTR/Matthew 12/23/2021 documented in this encounter [employer] Phone: Evaluation note Diagnosis Viral illness Unspecified viral infection, in conditions classified elsewhere and of unspecified site documented in this encounter [employer] Phone: [email or web address] note* Diagnosis Suspected COVID-19 virus infection documented in this encounter [employer] Phone: evaluation note* Diagnosis Acute cystitis with hematuria Acute cystitis documented in this encounter [employer] Phone: evaluation note* Diagnosis Difficult or painful urination Dysuria documented in this encounter [employer] Phone: evaluation note* Diagnosis Acute cystitis with hematuria Acute cystitis Recurrent UTI Urinary tract infection, site not specified documented in this encounter [employer] Phone: evaluation note* Diagnosis Frequent UTI Urinary tract infection, site not specified Urinary urgency Urgency of urination Urinary frequency documented in this encounter [employer] Phone: evaluation note* Diagnosis Frequent UTI Urinary tract infection, site not specified Urinary urgency Urgency of urination Urinary frequency documented in this encounter [employer] Phone: evaluation note* Diagnosis MRSA (methicillin resistant Staphylococcus aureus) septicemia ([facility]) Methicillin resistant staphylococcus aureus septicemia [facility]No assessment information [facility] Work Phone: Evaluation note* Diagnosis Fatigue, unspecified type Encounter for screening for HIV Mixed hyperlipidemia Hyperglycemia Other abnormal glucose Chronic renal impairment, stage 3b (HCC) documented in this encounter [employer] Phone: evaluation note* Diagnosis Acute cystitis with hematuria Acute cystitis documented in this encounter [employer] Phone: evaluation note* Diagnosis Neck mass Swelling, mass, or lump in head and neck documented in this encounter [employer] Phone: evalveisws note* Diagnosis Pain of foot, unspecified laterality Closed nondisplaced fracture of second metatarsal bone of left foot, initial encounter Closed nondisplaced fracture of lateral cuneiform of left foot, initial encounter documented in this encounter [employer] Phone: evaluation note* Diagnosis Foreign body (FB) in soft tissue Residual foreign body in soft tissue documented in this encounter [employer] Phone: evaluation note* Diagnosis Pelvic pressure in female Other specified symptom associated with female genital organs documented in this encounter [employer] Phone: evaluation note* Diagnosis Charcot arthropathy of midfoot- Primary Gastrocnemius equinus, unspecified laterality Foot pain, left Pain in soft tissues of limb [facility] Mixed hyperlipidemia documented in this encounter [employer] Summary Purpose Family History No Family History [...] FoundDocuments on File Type Date Recorded Patient Manager Supply Chain Planning Expl anation Advance Directives and Living Will Power of Bicycle Courier Latest Code Status on File Code Status Date Activated Date Inactivated Comments Full Code 08/15/2018 4:17 PM 08/25/2018 8:55 PM Full Code 03/19/2017 1:37 PM 03/19/2017 4:32 PM Full Code 03/19/2017 10:57 AM 03/19/2017 1:37 PM Full Code 03/05/2017 12:56 PM 03/05/2017 3:55 PM Full Code 03/05/2017 10:05 AM 03/05/2017 12:56 PM Documents on File Type Date Recorded Patient Manager Supply Chain Planning Expl anation ACP-Advance Directive ACP-Power of Bicycle Courier Documents on File Type Date Recorded Patient Manager Supply Chain Planning Expl anation ACP-Advance Directive ACP-Power of Bicycle Courier Latest Code Status on File Code Status [...] Everywhere. * Back Care Basics: General Info ([place]) * Back: Preventing Injuries ([place]) documented in this encounter Reason for Referral Status Reason Specialty Diagnoses / Procedures Referre d By Contact Referred To Contact Closed Radiology Diagnoses Brachial neuritis Peripheral nerve disorder Spasm of muscle Procedures MR Cervical Spine Without Contrast Tiffanie Casas MD [address] [place] [address] Specialty Diagnoses / Procedures Referred By Thor bernal Referred To Contact Radiology Diagnoses Neck mass Procedures US HEAD NECK SOFT TISSUE THYROID Felipe Adam MD [address] [place] [address] Referral ID Status Reason Start Date Expiration Date Visits Re quested Visits Authorized [id number] Closed 05/27/2022 05/27/2023 1 1 Chief Complaint and Reason for Visit Chief Complaint M54.16 M79.10 M79.60 9 R20.9 Chief Complaint Unknown Additional Source Comments INFORMATION SOURCE (unrecogn ized section and content) DATE CREATED AUTHOR 03/30/2018 [facility] DATE CREATED AUTHOR AUTHOR'S ORGANIZ ATION 03/30/2018 [facility] DATE CREATED AUTHOR AUTHOR'S ORGANIZ ATION 09/15/2018 [facility] DATE CREATED AUTHOR AUTHOR'S ORGANIZ ATION 09/23/2018 [facility] DATE CREATED AUTHOR AUTHOR'S ORGANIZ ATION 09/26/2018 [facility] DATE CREATED AUTHOR AUTHOR'S ORGANIZ ATION 12/10/2018 [facility] DATE CREATED AUTHOR AUTHOR'S ORGANIZ ATION 12/18/2018 [facility] DATE CREATED AUTHOR AUTHOR'S ORGANIZ ATION 02/11/2019 [facility] DATE CREATED AUTHOR AUTHOR'S ORGANIZ ATION 11/30/2021 [facility] DATE CREATED AUTHOR AUTHOR'S ORGANIZ ATION 05/01/2022 [facility] DATE CREATED AUTHOR AUTHOR'S ORGANIZ ATION 08/22/2022 [facility] DATE CREATED AUTHOR AUTHOR'S ORGANIZ ATION 01/12/2023 [facility] DATE CREATED AUTHOR AUTHOR'S ORGANIZ ATION 02/15/2023 [facility] DATE CREATED AUTHOR AUTHOR'S ORGANIZ ATION 03/14/2023 [facility] DATE CREATED AUTHOR AUTHOR'S ORGANIZ ATION 04/04/2023 [facility] DATE CREATED AUTHOR AUTHOR'S ORGANIZ ATION 02/20/2024 [facility] DATE CREATED AUTHOR AUTHOR'S ORGANIZ ATION 05/12/2024 [facility] DATE CREATED AUTHOR AUTHOR'S ORGANIZ ATION 05/12/2024 [facility] Reason for Visit (unrecogniz ed section and content) Status Reason Specialty Diagnoses / Procedures Referre d By Contact Referred To Contact Closed Radiology Diagnoses Brachial neuritis Peripheral nerve disorder Spasm of muscle Procedures MR Cervical Spine Without Contrast Tiffanie Casas MD [address] [place] [address] Specialty Diagnoses / Procedures Referred By Contac t Referred To Contact Occupational Therapy Diagnoses Carpal tunnel syndrome Carpal Tunnel Syndrome Procedures Eval and treat Keenan Lozano MD [address] [place] [address] [facility] [address] [place] [address] Referral ID Status Reason Start Date Expiration Date Visits Re quested Visits Authorized [id number] Open 12/19/2021 12/19/2022 1 1 Specialty Diagnoses / Procedures Referred By Contac t Referred To Contact Physical Therapy Diagnoses Radiculopathy, lumbar region Lumbar Radiculopathy Procedures Eval and treat Janel Allen, TAFE TEACHER - PCB DESIGNER [address] [place] [id number] [facility] [address] [place] [address] Referral ID Status Reason Start Date Expiration Date Visits Re quested Visits Authorized [id number] Open 12/19/2021 12/19/2022 1 1 Specialty Diagnoses / Procedures Referred By Contac t Referred To Contact Radiology Diagnoses Neck mass Procedures US HEAD NECK SOFT TISSUE THYROID Back, MD Felipe [address] [place] [address] Referral ID Status Reason Start Date Expiration Date Visits Re quested Visits Authorized [id number] Closed 05/27/2022 05/27/2023 1 1 Specialty Diagnoses / Procedures Referred By Contac t Referred To Contact Radiology Diagnoses Pain of foot, unspecified laterality Closed nondisplaced fracture of lateral cuneiform of left foot, initial encounter Procedures MRI FOOT LEFT W WO CONTRAST MRI FOOT LEFT W WO CONTRAST Robbin Sánchez, DPM [address], [place] [address] Referral ID Status Reason Start Date Expiration Date Visits Re quested Visits Authorized [id number] Closed 06/20/2022 06/20/2023 1 1 Reason Comments Education Class Specialty Diagnoses / Procedures Referred By Thor bernal Referred To Contact Diabetes Services Diagnoses Pre-diabetes Felipe Adam MD [address] [place] [phone] [facility] [address] [place] [address] Referral ID Status Reason Start Date Expiration Date V isits Requested Visits Authorized [id number] Open Specialty Services Required 06/30/2022 06/30/2023 2 2 Specialty Diagnoses / Procedures Referred By Thor bernal Referred To Contact Diabetes Services Diagnoses Pre-diabetes Felipe Adam MD [address] [place] [address] [facility] [address] [place] [address] Reason Comments Other Left foot charcot on -going since 06/2022. New x-rays today. 2nd of opinion. Care Teams (unrecognized sec tion and content) Ceramics Engineer Relationship Specialty Start Date End Date Back, MD Fel[place] [address] [place] [address] PCP - General Internal Medicine 11/14/11 Ceramics Engineer Relationship Specialty Start Date End Date Back, MD Felipe [address] [place] [address] PCP - General Internal Medicine 11/14/11 Ceramics Engineer Relationship Specialty Start Date End Date Back, MD Felipe [address] [phone] PCP - General Internal Medicine 11/14/11 Ceramics Engineer Relationship Specialty Start Date End Date Back, MD Felipe [address] [id number] PCP - General Internal Medicine 11/14/11 Ceramics Engineer Relationship Specialty Start Date End Date Back, MD Felipe [address] [place] [id number] PCP - General Internal Medicine 11/14/11 Ceramics Engineer Relationship Specialty Start Date End Date Back, MD Felipe [address] [place] [id number] PCP - General Internal Medicine 11/14/11 Ceramics Engineer Relationship Specialty Start Date End Date Back, MD Felipe [address] [place] [address] PCP - General Internal Medicine 11/14/11 Team Status: Inactive Member Role Status Dates NON STAFF Primary Care Provider Active Tiffanie Casas MD Attending Provider Active Team Status: Active Member Role Status Dates NON STAFF Primary Care Provider Active Ceramics Engineer Relationship Specialty Start Date End Date Back, MD Felipe [address] [place] [id number] PCP - General Internal Medicine 11/14/11 Ceramics Engineer Relationship Specialty Start Date End Date Back, MD Felipe [address] [place] [address] PCP - General Internal Medicine 11/14/11 Ceramics Engineer Relationship Specialty Start Date End Date Back, MD Felipe [address] [place] [address] PCP - General Internal Medicine 11/14/11 Ceramics Engineer Relationship Specialty Start Date End Date Back, MD Felipe [address] [place] [address] PCP - General Internal Medicine 11/14/11 Ceramics Engineer Relationship Specialty Start Date End Date Back, MD Felipe [address] [place] [address] PCP - General Internal Medicine 11/14/11 Ceramics Engineer Relationship Specialty Start Date End Date Back, MD Felipe [address] [place] [address] PCP - General Internal Medicine 11/14/11 Ceramics Engineer Relationship Specialty Start Date End Date Back, MD Felipe [address] [facility] [place] [id number] PCP - General Internal Medicine 11/14/11 Ceramics Engineer Relationship Specialty Start Date End Date Back, MD Felipe [address] [facility] [place] [address] PCP - General Internal Medicine 11/14/11 Ceramics Engineer Relationship Specialty Start Date End Date Back, MD Felipe [address] [facility] [place] [address] PCP - General Internal Medicine 03/26/15 Ceramics Engineer Relationship Specialty Start Date End Date Back, MD Felipe [address] [facility] [place] [address] PCP - General Internal Medicine 11/14/11 Team Status: Inactive Member Role Status Dates Frances Harris DPM MS Attending Provider Active Start: February 15, 2024 End: February 15, 2024 Ceramics Engineer Relationship Specialty Start Date End Date Back, MD Felipe [address] [place] [address] PCP - General Internal Medicine 11/14/11 Goals [...] BE BASED ON THE PRIMARY CLINICAL RECORDS. [facility]. provides no warranty or guarantee of the accuracy or completeness of information in this document.
== END 2024-05-19 13:33 | disposition home or self-care (01) ==
LOC: WC 13:33
PROVIDERS: Visit Provider Podiatrist Foot & Ankle Surgery
DX: L97.428 Non-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 with other specified severity (principal)
CPT/HCPCS: 29445

== ENCOUNTER 2024-05-27 10:49 | Outpatient (OUT) | payer BC, SELFPAY ==
--- NOTE | 2024-05-27 | XR_ITS ---
The [address] [address] Patient Name: CHASTITY GASPAR MRN: [id number] date: 1980 Sex: F Assigned Patient Location: Current Patient Location: Accession/Order Number: [id number] Exam Date: 05/27/2024 10:54 Report Date: 05/29/2024 20:43 At the request of: FRANCES HARRIS Procedure: XR foot LT min 3V PROCEDURE: XR foot LT min 3V COMPARISON: 04/27/2024 HISTORY: LEFT FOOT PAIN FINDINGS: BONES:Marked degenerative changes of the foot with fusion of the first second and third tarsometatarsal joints. There appears to be significant resection of the midfoot. Subtalar fusion. No significant bony bridging is observed. Subchondral cystic changes likely represent osteopenia. SOFT TISSUES:Soft tissue swelling EFFUSION:None visible. OTHER: Negative. XR/XR foot LT min 3V IMPRESSION: Stable neuropathic osteoarthropathy and postsurgical changes with no significant bony bridging Electronically authenticated by: EMILY ELY Date: 05/29/2024 20:43
--- OUTSIDE RECORDS SUMMARY | 2024-05-27 11:04 | XMS_ITS | CCD ---
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 Name Role Phone Back, Felipe Unavailable Unavailable [...] Juares Admitting Unavailable Shanice Juares Attending Unavailable eMlchor Calderon Admitting Unavailable Melchor Calderon Attending Unavailable TIFFANIE CASAS Attending Unavailable TIFFANIE CASAS Referring Unavailable BACK, FELIPE Primary Care Unavailable Back, Felipe Primary Care Provider [phone] Back, Felipe Primary Care Provider [phone] Back, Felipe Primary Care Provider Unavailabl e Back , Felipe Primary Care Provider Back MD, Felipe Primary Care Provider [phone] Back MD, Felipe Primary Care Provider [phone] BACK, FELIPE Primary Care Unavailable MUTNAL, AMAR Admitting Unavailable MUTNAL, AMAR Attending Unavailable Back , Felipe Primary Care Provider NON STAFF Primary Care Provider UnavailMD Tiffanie Mixon. Attending Provider Back , Felipe Primary Care Provider [phone] YOON COBB Referring Unavailable BACK, FELIPE Primary Care Unavailable Back , Felipe Primary Care Provider KALPESH ARENAS Attending Unavail able BACK, FELIPE Primary Care Unavailable Back , Felipe Primary Care Provider FRANCES HARRIS Admitting Unavailable FRANCES HARRIS Attending Unavailable FRANCES HARRIS Consulting Unavailable FRANCES HARRIS Admitting Unavailable HIGHLFRANCES HERNANDEZ Attending Unavailable [facility], DR PIPER Ackerman Consulting Unavailable HIGHLFRANCES HERNANDEZ Consulting Unavailable HIGHLFRANCES HERNANDEZ Admitting Unavailable HIGHLFRANCES HERNANDEZ Attending Unavailable [place], DR EMILY Riojas Consulting Unavailable HIGHLANDERFRANCES Consulting Unavailable Back , Felipe Primary Care Provider [phone] ROBBIN SHOOK II Admitting Un available HASSMANN IIROBBIN Referring Un available BACK, FELIPE Primary Care Unavailable HASSMANN II, ROBBIN DAHL Attending Un available BACK, FELIPE Primary Care Unavailable BACK, FELIPE Primary Care Unavailable HASSMANN II, ROBBIN DAHL Attending Un available Back , Felipe Primary Care Provider [phone] INDER Harris Attending Provider Frances Harris Attending [...] Chlorhexidine; Translations: [CHLORHEXIDINE] Drug Allergy 03-03-2023 Rash [facility] (1 source) topiramate Drug Allergy 10-29-2023 [facility] Medications Current Medications Medication Drug Class(es) Dates [...] Start: 01-14-2023 take 1 capsule by mo [facility] once daily in the morning amphetamine-dextroamphetamine (ADDERALL [...] Active Start: 08-07-2022 take 1 capsule by [facility] once daily as needed for urinary tract [...] oral tablet (1 source) alpha-Adrenergic Agonist, Uncompetitive R-fmkixr-Z-aspartat e Receptor Antagonist, Sigma-1 Agonist Start: 02-13-2021 [...] (BMI) of 38.0 to 38.9 in adult ([facility]) Take 1 tablet by mouth every [...] (BMI) of 40.0 to 44.9 in adult ([facility]) Take 1 capsule by mouth every [...] Start: 07-30-2020 take 2 tablets by mo [facility] once daily sertraline (ZOLOFT) 100 MG tablet Take 2 tablets by mouth daily Currently decreasing this medication 0 07/30/2020 Active Start: 07-30-2020 take 1 tablet by prabhjot once daily sertraline (ZOLOFT) 100 MG tablet Take 100 mg by mouth daily Currently decreasing this medication 0 07/30/2020 Active Start: 07-06-2019 take 2 tablets by mo [facility] once daily sertraline (ZOLOFT) 50 MG tablet [...] of skin] Onset: 02-05-2018 08-03-2017 Episodic Other 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 There is a lrpgflbq-lu-givee plantar calcaneal spur. CT is not sensitive [...] Robin Mcarthur MD 05/10/24 Final result Normal [facility] Magnesiumon 05-10-2024 Magnesium [Mass/Vol] 2.2 mg/dL 1.6 - 2 .6 mg/dL [facility] Magnesium [Mass/Vol] 2.2 mg/dL Normal 1.6-2.6 [facility] Comment on above: Performed By: #### U RTPRT #### [facility] [employer] [facility] [place] [address] Binitrotoluene Operator: Placido Pierce MD #### BENJI SPENCER UA #### [facility] [address] [place] [address] Binitrotoluene Operator: Emily George MD No Panel Informationon 05-10 [facility] Protein / creatinine ratio, urineon 05-10-2024 Creatinine (U) [Mass/Vol] 132.0 mg/dL 28.0 - 217.0 mg/dL [facility] Protein (U) [Mass/Vol] 9 mg/dL [facility] Comment on above: No normal range esta blished. Urine Total Protein Creatinine Ratio 0.07 [facility] Protein,Tot,[place] 2023 Creatinine [Mass/Vol] 132.0 mg/dL Normal 28.0-217.0 [facility] Comment on above: Performed By: #### U RTPRT #### [address] [id number] Binitrotoluene Operator: Placido Pierce MD #### MG, RENP, UA #### [facility] [address] [place] [address] Binitrotoluene Operator: Emily George MD Tot Prot. Conc. 9 mg/dL [facility] Comment on above: Result Comment: No n ormal range established. Performed By: #### U RTPRT #### [address] [id number] Binitrotoluene Operator: Placido Pierce MD #### MG, RENP, UA #### [facility] [address] [place] [address] Binitrotoluene Operator: Emily George MD TP/Cre Ratio 0.07 [facility] Comment on above: Performed By: #### U RTPRT #### [address] [id number] Binitrotoluene Operator: Placido Pierce MD #### MG, RENP, UA #### [facility] [address] [place] [address] Binitrotoluene Operator: Emily George MD Renal Function Panelon 05-10 Albumin [Mass/Vol] 4.2 g/dL 3.5 - 5.2 g/dL [facility] Anion gap [Moles/Vol] 15 mmol/L 9 - 17 mmol/L [facility] Calcium [Mass/Vol] 9.2 mg/dL 8.6 - 10. 4 mg/dL [facility] Chloride [Moles/Vol] 101 mmol/L 98 - 10 7 mmol/L [facility] CO2 [Moles/Vol] 25 mmol/L 20 - 31 mmol/L [facility] Creatinine [Mass/Vol] 1.3 mg/dL High 0.5 - 0.9 mg/dL [facility] Est, Sariah Snowt Rate 52 Low - [facility] Comment on above: These results are [...] 141 mg/dL High 70 - 99 mg/dL [facility] Interpretation and review of laboratory results Abnormal [facility] Phosphate [Mass/Vol] 3.8 mg/dL 2.6 - 4 .5 mg/dL [facility] Potassium [Moles/Vol] 4.0 mmol/L 3.7 - 5.3 mmol/L [facility] Sodium [Moles/Vol] 141 mmol/L 135 - 144 mmol/L [facility] Urea nitrogen [Mass/Vol] 19 mg/dL 6 - 20 mg/dL [facility] Urea nitrogen/Creatinine [Mass ratio] 15 mg/mg 9 - 20 [facility] Albumin [Mass/Vol] 4.2 g/dL Normal 3.5-5.2 [facility] Comment on above: Performed By: #### U RTPRT #### [address] [address] Binitrotoluene Operator: Placido Pierce MD #### MGMOREP, UA #### [facility] [address] [place], [place] [id number] Binitrotoluene Operator: Emily George MD Anion gap [Moles/Vol] 15 mmol/L Normal 9-17 [facility] Comment on above: Performed By: #### U RTPRT #### [address] [address] Binitrotoluene Operator: Placido Pierce MD #### MGMOREP, UA #### [facility] [address] [place], [place] [phone] Binitrotoluene Operator: Emily George MD BUN/CRE Ratio 15 Normal 9-[address] [facility] Comment on above: Performed By: #### U RTPRT #### [address] [address] Binitrotoluene Operator: Placido Pierce MD #### MGMOREP, UA #### [facility] [address] [place], [place] [id number] Binitrotoluene Operator: Emily George MD Calcium [Mass/Vol] 9.2 mg/dL Normal 8.6-10.4 [facility] Comment on above: Performed By: #### U RTPRT #### [address] [address] Binitrotoluene Operator: Placido Pierce MD #### MG, RENP, UA #### [facility] [address] [place], [place] [id number] Binitrotoluene Operator: Emily George MD Chloride [Moles/Vol] 101 mmol/L Normal 98-107 [facility] Comment on above: Performed By: #### U RTPRT #### [address] [id number] Binitrotoluene Operator: Placido Pierce MD #### MG, RENP, UA #### [facility] [address] [place] [address] Binitrotoluene Operator: Emily George MD CO2 [Moles/Vol] 25 mmol/L Normal 20-31 [facility] Comment on above: Performed By: #### U RTPRT #### [facility] [address] [place], [place] [id number] Binitrotoluene Operator: Placido Pierce MD #### MG, RENP, UA #### [facility] [address] [place] [address] Binitrotoluene Operator: Emily George MD Creatinine [Mass/Vol] 1.3 mg/dL High 0.5-0.9 [facility] Comment on above: Performed By: #### U RTPRT #### [facility] [address] [place], [place] [phone] Binitrotoluene Operator: Placido Pierce MD #### MG, RENP, UA #### [facility] [address] [place] [address] Binitrotoluene Operator: Emily George MD GFR/1.73 sq M.predicted among non-blacks MDRD (S/P/Bld) [Vol rate/Area] 52 mL/min/{1.73_m2} Low >60 [facility] Comment on above: Result Comment: These results [...] secretion. Performed By: #### U RTPRT #### [facility] [address] [place], [place] [id number] Binitrotoluene Operator: Placido Pierce MD #### MG, RENP, UA #### [facility] [address] [place], [place] [phone] Binitrotoluene Operator: Emily George MD Glucose [Mass/Vol] 141 mg/dL High 70-99 [facility] Comment on above: Performed By: #### U RTPRT #### [address] [place], [place] 7420[address] Binitrotoluene Operator: Placido Pirece MD #### MG, RENP, UA #### [facility] [address] [place], [place] 0367[address] Binitrotoluene Operator: Emily George MD Phosphorus, Inorg. 3.8 mg/dL Normal 2.6-4.5 [facility] Comment on above: Performed By: #### U RTPRT #### [address] [id number] Binitrotoluene Operator: Placido Pierce MD #### MG, RENP, UA #### [facility] [address] [place], [place] [phone] Binitrotoluene Operator: Emily George MD Potassium [Moles/Vol] 4.0 mmol/L Normal 3.7-5.3 [facility] Comment on above: Performed By: #### U RTPRT #### [address] [id number] Binitrotoluene Operator: Placido Pierce MD #### MG, RENP, UA #### [facility] [address] [place], [place] [phone] Binitrotoluene Operator: Emily George MD Sodium [Moles/Vol] 141 mmol/L Normal 135-144 [facility] Comment on above: Performed By: #### U RTPRT #### [address] [address] Binitrotoluene Operator: Placido Pierce MD #### MG, RENP, UA #### [facility] [address] [place] [address] Binitrotoluene Operator: Emily George MD Urea nitrogen [Mass/Vol] 19 mg/dL Normal 6-20 [facility] Comment on above: Performed By: #### U RTPRT #### [facility] [employer] [address] [place], [place] [phone] Binitrotoluene Operator: Placido Pierce MD #### MG, RENP, UA #### [facility] [address] [place], [place] 14[address] Binitrotoluene Operator: Emily George MD Urinalysison 05-10-2024 Bilirubin Ql (U) Negative NEGATIVE [facility] Clarity (U) Clear Clear [facility] Color (U) Yellow Yellow [facility] Comment [facility] Glucose Test strip (U) [Mass/Vol] Negative NEGATIVE mg/dL [facility] Hemoglobin Auto test strip Ql (U) Negative NEGATIVE [facility] Interpretation and review of laboratory results Abnormal [facility] Ketones (U) [Mass/Vol] Negative NEGATIVE mg/dL [facility] Leukocyte esterase Test strip Ql (U) Negative NEGATIVE [facility] Nitrite Ql (U) Negative NEGATIVE [facility] pH (U) 5.0 [pH] 5.0 - 8.0 [facility] Protein (U) [Mass/Vol] TRACE Abnormal NEGATIVE mg/dL [facility] Specific gravity (U) [Rel density] 1.020 1.005 - 1.030 [facility] Urobilinogen Qn (U) Normal 0.0 - 1. 0 EU/dL [facility] Urinalysis, Routineon 2023 Bilirubin, SemiQt,Ur Negative Normal NEG [facility] Comment on above: Performed By: #### U RTPRT #### [facility] [employer] [address] [place], [place] [phone] Binitrotoluene Operator: Placido Pierce MD #### MG, RENP, UA #### [facility] [address] [place] [address] Binitrotoluene Operator: Emily George MD Blood, Urine Negative Normal NEG [facility] Comment on above: Performed By: #### U RTPRT #### [facility] [address] [place] [address] Binitrotoluene Operator: Placido Pierce MD #### MG, RENP, UA #### [facility] [address] [place] [address] Binitrotoluene Operator: Emily George MD Clarity (U) Clear Normal CLEAR [facility] Comment on above: Performed By: #### U RTPRT #### [address] [address] Binitrotoluene Operator: Placido Pierce MD #### MG, RENP, UA #### [facility] [address] [place] [address] Binitrotoluene Operator: Emily George MD Color (U) Yellow Normal YEL [facility] Comment on above: Performed By: #### U RTPRT #### [address] [address] Binitrotoluene Operator: Placido Pierce MD #### MG, RENP, UA #### [facility] [address] [place] [address] Binitrotoluene Operator: Emily George MD Comment Normal [facility] Comment on above: Performed By: #### U RTPRT #### [address] [address] Binitrotoluene Operator: Placido Pierce MD #### MG, RENP, UA #### [facility] [address] [place] [address] Binitrotoluene Operator: Emily George MD Glucose Ql (U) Negative Normal NEG [facility] Comment on above: Performed By: #### U RTPRT #### [address] [address] Binitrotoluene Operator: Placido Pierce MD #### MG, RENP, UA #### [facility] [address] [place] [address] Binitrotoluene Operator: Emily George MD Ketones Ql (U) Negative Normal NEG [facility] Comment on above: Performed By: #### U RTPRT #### [address] [address] Binitrotoluene Operator: Placido Pierce MD #### MG, RENP, UA #### [facility] [address] [place] [address] Binitrotoluene Operator: Emily George MD Leukocyte esterase Test strip Ql (U) Negative Normal NEG [facility] Comment on above: Performed By: #### U RTPRT #### [address] [address] Binitrotoluene Operator: Placido Pierce MD #### MG, RENP, UA #### [facility] [address] [place] [address] Binitrotoluene Operator: Emily George MD Nitrite,Ur Negative Normal NEG [facility] Comment on above: Performed By: #### U RTPRT #### [address] [address] Binitrotoluene Operator: Placido Pierce MD #### MG, RENP, UA #### [facility] [address] [place] [address] Binitrotoluene Operator: Emily eGorge MD PH,Ur 5.0 Normal 5.0-8.0 [facility] Comment on above: Performed By: #### U RTPRT #### [address] [id number] Binitrotoluene Operator: Placido Pierce MD #### MG, RENP, UA #### [facility] [address] [place] [address] Binitrotoluene Operator: Emily George MD Protein Ql (U) TRACE Abnormal NEG [facility] Comment on above: Performed By: #### U RTPRT #### [address] [id number] Binitrotoluene Operator: Placido Pierce MD #### MG, RENP, UA #### [facility] [address] [place] [address] Binitrotoluene Operator: Emily George MD Spec. [place],Ur 1.020 Normal 1.005-1.030 [facility] Comment on above: Performed By: #### U RTPRT #### [address] [id number] Binitrotoluene Operator: Placido Pierce MD #### MG, RENP, UA #### [facility] [address] [place] [address] Binitrotoluene Operator: Emily George MD Urobilinogen,Ur Normal Normal 0.0-1.0 [facility] Comment on above: Performed By: #### U RTPRT #### [address] [id number] Binitrotoluene Operator: Placido Pierce MD #### MG, RENP, UA #### [facility] [address] [place] [address] Binitrotoluene Operator: Emily George MD Basic Metabolic Profon 05-02 Anion gap [Moles/Vol] 11 mmol/L Normal 9-17 [facility] Comment on above: Performed By: #### U RTPRT #### [address] [id number] Binitrotoluene Operator: Placido Pierce MD #### MG, RENP, UA #### [facility] [address] [place], [place] [address] Binitrotoluene Operator: Emily George MD BUN/CRE Ratio 18 Normal 9-[address] [facility] Comment on above: Performed By: #### U RTPRT #### [facility] [address] [place], [place] 2754[address] Binitrotoluene Operator: Placido Pierce MD #### MG, RENP, UA #### [facility] [address] [place], [place] 27[address] Binitrotoluene Operator: Emily George MD Calcium [Mass/Vol] 9.1 mg/dL Normal 8.6-10.4 [facility] Comment on above: Performed By: #### U RTPRT #### [address] [id number] Binitrotoluene Operator: Placido Pierce MD #### MG, RENP, UA #### [facility] [address] [place], [place] 0[address] Binitrotoluene Operator: Emily George MD Chloride [Moles/Vol] 103 mmol/L Normal 98-107 [facility] Comment on above: Performed By: #### U RTPRT #### [address] [address] Binitrotoluene Operator: Placido Pierce MD #### MG, RENP, UA #### [facility] [address] [place], [place] 30044[address] Binitrotoluene Operator: Emily George MD CO2 [Moles/Vol] 28 mmol/L Normal 20-31 [facility] Comment on above: Performed By: #### U RTPRT #### [address] [address] Binitrotoluene Operator: Placido Pierce MD #### MG, RENP, UA #### [facility] [address] [place], [place] [address]158[address] Binitrotoluene Operator: Emily George MD Creatinine [Mass/Vol] 1.1 mg/dL High 0.5-0.9 [facility] Comment on above: Performed By: #### U RTPRT #### [address] 1884908 Binitrotoluene Operator: Placido Pierce MD #### MG, RENP, UA #### [facility] [address] [place], [place] 9[address] Binitrotoluene Operator: Emily George MD GFR/1.73 sq M.predicted among non-blacks MDRD (S/P/Bld) [Vol rate/Area] 64 mL/min/{1.73_m2} Normal >60 [facility] Comment on above: Result Comment: These results [...] secretion. Performed By: #### U RTPRT #### [address] [id number] Binitrotoluene Operator: Placido Pierce MD #### MG, RENP, UA #### [facility] [address] [place], [place] 2736[address] Binitrotoluene Operator: Emily George MD Glucose [Mass/Vol] 122 mg/dL High 70-99 [facility] Comment on above: Performed By: #### U RTPRT #### [address] [address] Binitrotoluene Operator: Placido Pierce MD #### MG, RENP, UA #### [facility] [address] [place], [place] 29[address] Binitrotoluene Operator: Emily George MD Potassium [Moles/Vol] 4.1 mmol/L Normal 3.7-5.3 [facility] Comment on above: Performed By: #### U RTPRT #### [address] [place] [address] Binitrotoluene Operator: Placido Pierce MD #### MG, RENP, UA #### [facility] [address] [place], [place] 1588690 Binitrotoluene Operator: Emily George MD Sodium [Moles/Vol] 142 mmol/L Normal 135-144 [facility] Comment on above: Performed By: #### U RTPRT #### [address] 9056508 Binitrotoluene Operator: Placido Pierce MD #### MG, RENP, UA #### [facility] [address] [place], [place] 429[address] Binitrotoluene Operator: Emily George MD Urea nitrogen [Mass/Vol] 20 mg/dL Normal 6-20 [facility] Comment on above: Performed By: #### U RTPRT #### [address] [id number] Binitrotoluene Operator: Placido Pierce MD #### MG, RENP, UA #### [facility] [address] [place], [place] 8046[address] Binitrotoluene Operator: Emily George MD Hemoglobin A1Con 05-02-2024 Glucose [Mass/Vol] 105 mg/dL Normal [facility] Comment on above: Result Comment: The ADA and AACC recommend providing the estimated average glucose result to permit better patient understanding of their HBA1c result. Performed By: #### U RTPRT #### [address] [id number] Binitrotoluene Operator: Placido Pierce MD #### MG, RENP, UA #### [facility] [address] [place], [place] 5566[address] Binitrotoluene Operator: Emily George MD HbA1c (Bld) [Mass fraction] 5.3 % Normal 4.0-6.0 [facility] Comment on above: Performed By: #### U RTPRT #### [address] [id number] Binitrotoluene Operator: Placido Pierce MD #### MG, RENP, UA #### [facility] [address] [place] [address] Binitrotoluene Operator: Emily George MD Lipid Profileon 05-02-2024 Cholesterol [Mass/Vol] 170 mg/dL Normal 0-199 [facility] Comment on above: Result Comment: Cholesterol Guidelines: <200 Desirable 200-240 Borderline >240 Undesirable Performed By: #### U RTPRT #### [address] [id number] Binitrotoluene Operator: Placido Pierce MD #### MG, RENP, UA #### [facility] [address] [place] [address] Binitrotoluene Operator: Emily George MD Cholesterol in HDL [Mass/Vol] 28 mg/dL Low >40 [facility] Comment on above: Result Comment: HDL Guidelines: <40 Undesirable 40-59 Borderline >59 Desirable Performed By: #### U RTPRT #### [address] [id number] Binitrotoluene Operator: Placido Pierce MD #### MG, RENP, UA #### [facility] [address] [place] [address] Binitrotoluene Operator: Emily George MD Cholesterol in LDL [Mass/Vol] 77 mg/dL Normal 0-100 [facility] Comment on above: Result Comment: LDL Guidelines: <100 Desirable 100-129 Near to/above Desirable 130-159 Borderline >159 Undesirable Direct (measured) LDL and calculated LDL are not interchangeable tests. Performed By: #### U RTPRT #### [facility] [address] [place] [address] Binitrotoluene Operator: Placido Pierce MD #### BENJI SPENCER, UA #### [facility] [address] [place] [address] Binitrotoluene Operator: Emily George MD Cholesterol in VLDL [Mass/Vol] 65 mg/dL Normal [facility] Comment on above: Performed By: #### U RTPRT #### [facility] [address] [place] [address] Binitrotoluene Operator: Placido Pierce MD #### BENJI SPENCER, UA #### [facility] [address] [place] [address] Binitrotoluene Operator: Emily George MD Cholesterol.total/Cho lesterol in HDL [Mass ratio] 6.0 {ratio} Normal [facility] Comment on above: Performed By: #### U RTPRT #### [facility] [address] [place] [address] Binitrotoluene Operator: Placido Pierce MD #### BENJI SPENCER, UA #### [facility] [address] [place] [address] Binitrotoluene Operator: Emily George MD Triglyceride [Mass/Vol] 323 mg/dL High <150 [facility] Comment on above: Result Comment: Triglyceride Guidelines: <150 Desirable 150-199 Borderline 200-499 High >499 Very high Based on AHA Guidelines for fasting triglyceride, July 2012. Performed By: #### U RTPRT #### [facility] [address] [place] [address] Binitrotoluene Operator: Placido Pierce MD #### MGMOREP, UA #### [facility] [address] [place] [address] Binitrotoluene Operator: Emily George MD Ananda 02-15-2024 L Specimen: [id number] Received: 02/16/24 Status: ARLEN So Num: [id number] Spec Type: Surgical Subm Dr: Frances Harris DPM, MS Tissues: A Soft Tissue/Surgical Margin-Other than Tumor,Mass,Lip or Becka (LT MID FOOT CH Procedures: HE/2, Gross/Micro L4 Age/ Patient Sex Location Account Attending Physician Gaspar,Amy M 43/F [facility] [id number] Frances Harris DPM, MS SPEC NUM: [id number] RECD: 02/16/24 STATUS: ARLEN SO NUM: [id number] MAYTE: 02/15/[address] [facility] [address]: Frances Harris DPM, MS ENTERED: 02/16/[address] [facility] [address]: Darwin Vergara SPEC TYPE: Surgical DEPT: [...] sections reveal firm, yellow spongy bone matrix. Warehouse Operator sections are submitted following decalcification in A1?A2. Clinical history: varus deformity left ankle, charcot join left ankle and foot. CPT Codes 06871 -------- -------- Specimen: [id number] Received: 02/16/24 Status: ARLEN So Num: [id number] Spec Type: Surgical Subm Dr: Frances Harris,DPM, MS Tissues: A Soft Tissue/Surgical Margin-Other than Tumor,Mass,Lip or Becka (LT MID FOOT CH Procedures: HE/2, Gross/Micro L4 -------- Patient: Celina Gaspar [id number] (Continued) -------- Signed (signature on file) Juan José Yu MD 02/17/24 1549 Normal [facility] CBC with Diffon 01-29-2024 Abs. Basophil 0.04 k/uL Normal 0.00-0.[address] [facility] Comment on above: Performed By: #### U RTPRT #### [address] [place] [address] Binitrotoluene Operator: Placido Pierce MD #### BENJI SPENCER UA #### [facility] [address] [place] [address] Binitrotoluene Operator: Emily George MD Abs.Imm.Granulocyte 0.12 k/uL Normal 0.00-0.30 [facility] Comment on above: Performed By: #### U RTPRT #### [facility] [address] [place], [place] [id number] Binitrotoluene Operator: Placido Pierce MD #### MG, RENP, UA #### [facility] [address] [place], [place] [phone] Binitrotoluene Operator: Emily George MD Abs.Neutrophil (Seg) 3.26 k/uL Normal 2.5-7.0 [facility] Comment on above: Performed By: #### U RTPRT #### [facility] [address] [place], [place] [id number] Binitrotoluene Operator: Placido Pierce MD #### MG, RENP, UA #### [facility] [address] [place], [place] [phone] Binitrotoluene Operator: Emily George MD Basophils/100 WBC (Bld) 1 % Normal 0-2 [facility] Comment on above: Performed By: #### U RTPRT #### [facility] [address] [place], [place] 5362808 Binitrotoluene Operator: Placido Pierce MD #### MG, RENP, UA #### [facility] [address] [place], [place] [phone] Binitrotoluene Operator: Emily George MD Eosinophils (Bld) [#/Vol] 0.06 10*3/uL Normal 0.00-0.40 [facility] Comment on above: Performed By: #### U RTPRT #### [facility] [address] [place], [place] 0640008 Binitrotoluene Operator: Placido Pierce MD #### MG, RENP, UA #### [facility] [address] [place], [place] [phone] Binitrotoluene Operator: Emily George MD Eosinophils/100 WBC (Bld) 1 % Normal 0-5 [facility] Comment on above: Performed By: #### U RTPRT #### [facility] [address] [place], [place] 0085208 Binitrotoluene Operator: Placido Pierce MD #### MG, MOREP, UA #### [facility] [address] [place], [place] [phone] Binitrotoluene Operator: Emily George MD Erythrocyte distribution width (RBC) [Ratio] 15.2 % Normal 12.1-15.2 [facility] Comment on above: Performed By: #### U RTPRT #### [facility] [address] [place], [place] 2533208 Binitrotoluene Operator: Placido Pierce MD #### MG, MOREP, UA #### [facility] [address] [place] [address] Binitrotoluene Operator: Emily George MD Hematocrit (Bld) [Volume fraction] 35.5 % Low 36.0-46.0 [facility] Comment on above: Performed By: #### U RTPRT #### [facility] [address] [place], [place] 5940108 Binitrotoluene Operator: Placido Pierce MD #### MG, MOREP, UA #### [facility] [address] [place], [place] 7263890 Binitrotoluene Operator: Emily George MD Hemoglobin (Bld) [Mass/Vol] 11.9 g/dL Low 12.0-16.0 [facility] Comment on above: Performed By: #### U RTPRT #### [facility] [address] [place], [place] 5501408 Binitrotoluene Operator: Placdio Pierce MD #### MG, RENP, UA #### [facility] [address] [place], [place] 7882890 Binitrotoluene Operator: Emily George MD Immature granulocytes/100 WBC (Bld) 2 % Normal 0-5 [facility] Comment on above: Performed By: #### U RTPRT #### [facility] [address] [place], [place] 1599708 Binitrotoluene Operator: Placido Pierce MD #### MG, BENJI, UA #### [facility] [address] [place], [place] 0082190 Binitrotoluene Operator: Emily George MD Lymphocytes (Bld) [#/Vol] 1.66 10*3/uL Normal 1.00-4.80 [facility] Comment on above: Performed By: #### U RTPRT #### [address] [id number] Binitrotoluene Operator: Placido Pierce MD #### MGBENJI, UA #### [facility] [address] [place] [address] Binitrotoluene Operator: Emily George MD Lymphocytes/100 WBC (Bld) 30 % Normal 15-40 [facility] Comment on above: Performed By: #### U RTPRT #### [address] 1696108 Binitrotoluene Operator: Placido Pierce MD #### MGBENJI, UA #### [facility] [address] [place], [place] 3336690 Binitrotoluene Operator: Emily George MD MCH (RBC) [Entitic mass] 28.4 pg Normal 26.0-34.0 [facility] Comment on above: Performed By: #### U RTPRT #### [facility] [address] [place], [place] 4542008 Binitrotoluene Operator: Placido Pierce MD #### MG, MOREP, UA #### [facility] [address] [place], [place] 4326290 Binitrotoluene Operator: Emily George MD MCHC (RBC) [Mass/Vol] 33.5 g/dL Normal 31.0-37.0 [facility] Comment on above: Performed By: #### U RTPRT #### [address] [place], [place] 3808208 Binitrotoluene Operator: Placido Pierce MD #### MG, RENP, UA #### [facility] [address] [place], [place] 7802790 Binitrotoluene Operator: Emily George MD MCV (RBC) [Entitic vol] 84.7 fL Normal 80.0-100.0 [facility] Comment on above: Performed By: #### U RTPRT #### [address] [phone] Binitrotoluene Operator: Placido Pierce MD #### MG, MOREP, UA #### [facility] [address] [place] [address] ( Binitrotoluene Operator: Emily George MD Monocytes (Bld) [#/Vol] 0.43 10*3/uL Normal 0.00-1.00 [facility] Comment on above: Performed By: #### U RTPRT #### [place] [address] Binitrotoluene Operator: Placido Pierce MD #### MG, MOREP, UA #### [facility] [address] [place], [place] 6685190 Binitrotoluene Operator: Emily George MD Monocytes/100 WBC (Bld) 8 % Normal 4-8 [facility] Comment on above: Performed By: #### U RTPRT #### [address] [id number] Binitrotoluene Operator: Placido Pierce MD #### MG, RENP, UA #### [facility] [address] [place], [place] 0626290 Binitrotoluene Operator: Emily George MD Neutrophil (Seg) 58 % Normal 47-75 [facility] Comment on above: Performed By: #### U RTPRT #### [facility] [address] [place] [address] Binitrotoluene Operator: Placido Pierce MD #### MG, MOREP, UA #### [facility] [address] [place], [place] 1428890 Binitrotoluene Operator: Emily George MD Platelet mean volume (Bld) [Entitic vol] 10.8 fL Normal 6.0-12.0 [facility] Comment on above: Performed By: #### U RTPRT #### [address] [phone] Binitrotoluene Operator: Placido Pierce MD #### MG, MOREP, UA #### [facility] [address] [place], [place] 5442190 Binitrotoluene Operator: Emily George MD Platelets (Bld) [#/Vol] 151 10*3/uL Normal 140-450 [facility] Comment on above: Performed By: #### U RTPRT #### [address] [address] Binitrotoluene Operator: Placido Pierce MD #### MGMOREP, UA #### [facility] [address] [place], [place] 8187690 Binitrotoluene Operator: Emily George MD RBC (Bld) [#/Vol] 4.19 10*6/uL Normal 4.00-5.20 [facility] Comment on above: Performed By: #### U RTPRT #### [address] [phone] Binitrotoluene Operator: Placido Pierce MD #### MG, RENP, UA #### [facility] [address] [place], [place] 1491190 Binitrotoluene Operator: Emily George MD WBC (Bld) [#/Vol] 5.6 10*3/uL Normal 3.5-11.0 [facility] Comment on above: Performed By: #### U RTPRT #### [address] [address] Binitrotoluene Operator: Placido Pierce MD #### MG, RENP, UA #### [facility] [address] [place], [place] 4879190 Binitrotoluene Operator: Emily George MD Comp Metabolic Profon 2023 Albumin [Mass/Vol] 4.4 g/dL Normal 3.5-5.2 [facility] Comment on above: Performed By: #### U RTPRT #### [address] [address] Binitrotoluene Operator: Placido Pierce MD #### MG, RENP, UA #### [facility] [address] [place] [phone] ( Binitrotoluene Operator: Emily George MD Alkaline Phos 95 U/L Normal 35-[address] [facility] Comment on above: Performed By: #### U RTPRT #### [address] [address] Binitrotoluene Operator: Placido Pierce MD #### MG, RENP, UA #### [facility] [address] [place] [phone] Binitrotoluene Operator: Emily George MD ALT [Catalytic activity/Vol] 19 U/L Normal 5-33 [facility] Comment on above: Performed By: #### U RTPRT #### [address] [address] Binitrotoluene Operator: Placido Pierce MD #### MG, RENP, UA #### [facility] [address] [place], [place] 1772890 Binitrotoluene Operator: Emily George MD Anion gap [Moles/Vol] 16 mmol/L Normal 9-17 [facility] Comment on above: Performed By: #### U RTPRT #### [facility] [address] [place] [address] Binitrotoluene Operator: Placido Pierce MD #### MG, RENP, UA #### [facility] [address] [place] [address] Binitrotoluene Operator: Emily George MD AST [Catalytic activity/Vol] 22 U/L Normal <32 [facility] Comment on above: Performed By: #### U RTPRT #### [facility] [address] [place] [address] Binitrotoluene Operator: Placido Pierce MD #### MG, RENP, UA #### [facility] [address] [place], [place] 2998990 Binitrotoluene Operator: Emily George MD Bilirubin [Mass/Vol] 0.5 mg/dL Normal 0.3-1.2 [facility] Comment on above: Performed By: #### U RTPRT #### [facility] [address] [place] [address] Binitrotoluene Operator: Placido Pierce MD #### MG, RENP, UA #### [facility] [address] [place], [place] 6954990 Binitrotoluene Operator: Emily George MD BUN/CRE Ratio 21 High 9-[address] [facility] Comment on above: Performed By: #### U RTPRT #### [facility] [address] [place] [address] Binitrotoluene Operator: Placido Pierce MD #### MG, RENP, UA #### [facility] [address] [place] [address] Binitrotoluene Operator: Emily George MD Calcium [Mass/Vol] 9.3 mg/dL Normal 8.6-10.4 [facility] Comment on above: Performed By: #### U RTPRT #### [facility] [address] [place] [address] Binitrotoluene Operator: Placido Pierce MD #### MG, RENP, UA #### [facility] [address] [place], [place] 1884390 Binitrotoluene Operator: Emily George MD Chloride [Moles/Vol] 99 mmol/L Normal 98-107 [facility] Comment on above: Performed By: #### U RTPRT #### [address] [place] [address] Binitrotoluene Operator: Placido Pierce MD #### MG, RENP, UA #### [facility] [address] [place], [place] 5398790 Binitrotoluene Operator: Emily George MD CO2 [Moles/Vol] 21 mmol/L Normal 20-31 [facility] Comment on above: Performed By: #### U RTPRT #### [facility] [address] [place] [address] Binitrotoluene Operator: Placido Pierce MD #### MG, RENP, UA #### [facility] [address] [place], [place] 3100390 Binitrotoluene Operator: Emily George MD Creatinine [Mass/Vol] 1.2 mg/dL High 0.5-0.9 [facility] Comment on above: Performed By: #### U RTPRT #### [facility] [address] [place] [address] Binitrotoluene Operator: Placido Pierce MD #### MG, RENP, UA #### [facility] [address] [place], [place] 6195190 Binitrotoluene Operator: Emily George MD GFR/1.73 sq M.predicted among non-blacks MDRD (S/P/Bld) [Vol rate/Area] 57 mL/min/{1.73_m2} Low >60 [facility] Comment on above: Result Comment: These results [...] secretion. Performed By: #### U RTPRT #### [address] [address] Binitrotoluene Operator: Placido Pierce MD #### MG, RENP, UA #### [facility] [address] [place], [place] 0642490 Binitrotoluene Operator: Emily George MD Glucose [Mass/Vol] 152 mg/dL High 70-99 [facility] Comment on above: Performed By: #### U RTPRT #### [address] [address] Binitrotoluene Operator: Placido Pierce MD #### MG, RENP, UA #### [facility] [address] [place] [address] Binitrotoluene Operator: Emily George MD Potassium [Moles/Vol] 3.6 mmol/L Low 3.7-5.3 [facility] Comment on above: Performed By: #### U RTPRT #### [address] [address] Binitrotoluene Operator: Placido Pierce MD #### MG, RENP, UA #### [facility] [address] [place] [address] Binitrotoluene Operator: Emily George MD Protein [Mass/Vol] 7.5 g/dL Normal 6.4-8.3 [facility] Comment on above: Performed By: #### U RTPRT #### [address] [phone] Binitrotoluene Operator: Placido Pierce MD #### MG, RENP, UA #### [facility] [address] [place], [place] 5750490 Binitrotoluene Operator: Emily George MD Sodium [Moles/Vol] 136 mmol/L Normal 135-144 [facility] Comment on above: Performed By: #### U RTPRT #### [facility] [address] [place], [place] 2985008 Binitrotoluene Operator: Placido Pierce MD #### MG, RENP, UA #### [facility] [address] [place], [place] 6081990 Binitrotoluene Operator: Emily George MD Urea nitrogen [Mass/Vol] 25 mg/dL High 6-20 [facility] Comment on above: Performed By: #### U RTPRT #### [address] [place], [place] 9141408 Binitrotoluene Operator: Placido Pierce MD #### MG, RENP, UA #### [facility] [address] [place], [place] 6847490 Binitrotoluene Operator: Emily George MD Hemoglobin A1Con 01-29-2024 Glucose [Mass/Vol] 123 mg/dL Normal [facility] Comment on above: Result Comment: The ADA and AACC recommend providing the estimated average glucose result to permit better patient understanding of their HBA1c result. Performed By: #### U RTPRT #### [facility] [address] [place], [place] 8129708 Binitrotoluene Operator: Placido Pierce MD #### MG, RENP, UA #### [facility] [address] [place], [place] 2854290 Binitrotoluene Operator: Emily George MD HbA1c (Bld) [Mass fraction] 5.9 % Normal 4.0-6.0 [facility] Comment on above: Performed By: #### U RTPRT #### [facility] [address] [place] [address] Binitrotoluene Operator: Placido Pierce MD #### MG, RENP, UA #### [facility] [address] [place], [place] 1014290 Binitrotoluene Operator: Emily George MD LDL Chol, Directon LDL Chol, Direct 114 mg/dL Normal [facility] Comment on above: Performed By: #### U RTPRT #### [facility] [address] [place] [address] Binitrotoluene Operator: Placido Pierce MD #### MG, RENP, UA #### [facility] [address] [place], [place] 7400190 Binitrotoluene Operator: Emily George MD Lipid Profileon 01-29-2024 Cholesterol [Mass/Vol] 190 mg/dL Normal 0-199 [facility] Comment on above: Result Comment: Cholesterol Guidelines: <200 Desirable 200-240 Borderline >240 Undesirable Performed By: #### U RTPRT #### [address] [address] Binitrotoluene Operator: Placido Pierce MD #### MG, RENP, UA #### [facility] [address] [place], [place] 4833490 Binitrotoluene Operator: Emily George MD Cholesterol in HDL [Mass/Vol] 30 mg/dL Low >40 [facility] Comment on above: Result Comment: HDL Guidelines: <40 Undesirable 40-59 Borderline >59 Desirable Performed By: #### U RTPRT #### [facility] [address] [place] [address] Binitrotoluene Operator: Placido Pierce MD #### MG, RENP, UA #### [facility] [address] [place], [place] 6428890 Binitrotoluene Operator: Emily George MD Cholesterol,LDL Can not be calculated Normal 0-100 [facility] Comment on above: Result Comment: LDL Guidelines: <100 Desirable 100-129 Near to/above Desirable 130-159 Borderline >159 Undesirable Direct (measured) LDL and calculated LDL are not interchangeable tests. Performed By: #### U RTPRT #### [address] [address] Binitrotoluene Operator: Placido Pierce MD #### BENJI SPENCER, UA #### [facility] [address] [place], [place] 0643290 Binitrotoluene Operator: Emily George MD Cholesterol,VLDL Can not be calculated Normal [facility] Comment on above: Performed By: #### U RTPRT #### [address] [address] Binitrotoluene Operator: Placido Pierce MD #### BENJI SPENCER, UA #### [facility] [address] [place], [place] 0485590 Binitrotoluene Operator: Emily George MD Cholesterol.total/Cho lesterol in HDL [Mass ratio] 6.0 {ratio} Normal [facility] Comment on above: Performed By: #### U RTPRT #### [address] [address] Binitrotoluene Operator: Placido Pierce MD #### BENJI SPENCER, UA #### [facility] [address] [place], [place] 6048890 Binitrotoluene Operator: Emily George MD Triglyceride [Mass/Vol] 443 mg/dL High <150 [facility] Comment on above: Result Comment: Triglyceride Guidelines: <150 Desirable 150-199 Borderline 200-499 High >499 Very high Based on AHA Guidelines for fasting triglyceride, July 2012. Performed By: #### U RTPRT #### [address] [address] Binitrotoluene Operator: Placido Pierce MD #### BENJI SPENCER, UA #### [facility] [address] [place], [place] 4869590 Binitrotoluene Operator: Emily George MD Patient fasting?on 4 Patient fasting? YES Normal [facility] Comment on above: Performed By: #### U RTPRT #### [facility] [address] [place], [place] 8702308 Binitrotoluene Operator: Placido Pierce MD #### MG, MOREP, UA #### [facility] [address] [place], [place] 1884190 Binitrotoluene Operator: Emily George MD TSH w/reflex to FT4on 2023 Thyroid Stim. Horm. 1.77 uIU/mL Normal 0.30-5.00 [facility] Comment on above: Performed By: #### U RTPRT #### [address] [id number] Binitrotoluene Operator: Placido Pierce MD #### MG, RENP, UA #### [facility] [address] [place], [place] 4557390 Binitrotoluene Operator: Emily George MD XR WRIST RIGHT (MIN [...] Lauren Jr., MD 08/24/23 Final result Normal [facility] Lipid Panelon 06-15-2023 Interpretation and review of laboratory results Abnormal [facility] Lipid Profileon 06-15-2023 Cholesterol [Mass/Vol] 174 mg/dL Normal <200 [facility] Comment on above: Cholesterol Guidelines: <200 Desirable 200-240 Borderline >240 Undesirable Result Comment: Cholesterol Guidelines: <200 Desirable 200-240 Borderline >240 Undesirable Performed By: #### U RTPRT #### [address] [place], [place] 0075108 Binitrotoluene Operator: Placido Pierce MD #### BENJI SPENCER, UA #### [facility] [address] [place], [place] 6823790 Binitrotoluene Operator: Emily George MD Cholesterol in HDL [Mass/Vol] 30 mg/dL Low >40 [facility] Comment on above: HDL Guidelines: <40 Undesirable 40-59 Borderline >59 Desirable Result Comment: HDL Guidelines: <40 Undesirable 40-59 Borderline >59 Desirable Performed By: #### U RTPRT #### [address] [id number] Binitrotoluene Operator: Placido Pierce MD #### BENJI SPENCER, UA #### [facility] [address] [place], [place] 1972490 Binitrotoluene Operator: Emily George MD Cholesterol in LDL [Mass/Vol] 77 mg/dL Normal 0-130 [facility] Comment on above: LDL Guidelines: <100 Desirable 100-129 Near to/above Desirable 130-159 Borderline >159 Undesirable Direct (measured) LDL and calculated LDL are not interchangeable tests. Result Comment: LDL Guidelines: <100 Desirable 100-129 Near to/above Desirable 130-159 Borderline >159 Undesirable Direct (measured) LDL and calculated LDL are not interchangeable tests. Performed By: #### U RTPRT #### [address] [id number] Binitrotoluene Operator: Placido Pierce MD #### BENJI PSENCER, UA #### [facility] [address] [place] [address] Binitrotoluene Operator: Emily George MD Cholesterol.total/Cho lesterol in HDL [Mass ratio] 5.8 {ratio} High <5 [facility] Comment on above: Performed By: #### U RTPRT #### [facility] [address] [place] [address] Binitrotoluene Operator: Placido Pierce MD #### BENJI SPENCER UA #### [facility] [address] [place], [place] 3684890 Binitrotoluene Operator: Emily George MD Triglyceride [Mass/Vol] 334 mg/dL High <150 [facility] Comment on above: Triglyceride Guidelines: <150 Desirable 150-199 Borderline 200-499 High >499 Very high Based on AHA Guidelines for fasting triglyceride, July 2012. Result Comment: Triglyceride Guidelines: <150 Desirable 150-199 Borderline 200-499 High >499 Very high Based on AHA Guidelines for fasting triglyceride, July 2012. Performed By: #### U RTPRT #### [facility] [address] [place] [address] Binitrotoluene Operator: Placido Pierce MD #### BENJI SPENCER UA #### [facility] [address] [place], [place] 0612[address] Binitrotoluene Operator: Emily George MD US THYROIDon 06-15-2023 US [...] Lauren Jr., MD 06/15/23 Final result Normal [facility] PTH, Intacton 05-17-2023 PTH, Intact 47.1 pg/mL Normal 14.0-72.0 [facility] Comment on above: Result Comment: SAMP LES FROM PATIENTS ROUTINELY RECEIVING HIGH DOSE BIOTIN THERAPY MAY SHOW FALSELY DEPRESSED RESULTS. ADDITIONAL INFORMATION MAY BE REQUIRED FOR DIAGNOSIS. Performed By: #### P THNCA, VD25, URTPRT #### [address] [id number] Binitrotoluene Operator: Placido Pierce MD #### RENP #### [facility] [address] [place], [place] 1494590 Binitrotoluene Operator: Emily George MD Protein,Tot,[place] 2022 Creatinine [Mass/Vol] 146.1 mg/dL Normal 28.0-217.0 [facility] Comment on above: Performed By: #### U RTPRT #### [address] [id number] Binitrotoluene Operator: Placido Pierce MD #### BENJI SPENCER, UA #### [facility] [address] [place], [place] 6197190 Binitrotoluene Operator: Emily George MD Tot Prot. Conc. 10 mg/dL Normal [facility] Comment on above: Result Comment: No n ormal range established. Performed By: #### U RTPRT #### [address] [id number] Binitrotoluene Operator: Placido Pierce MD #### MGBENJI, UA #### [facility] [address] [place], [place] 9985290 Binitrotoluene Operator: Emily George MD TP/Cre Ratio 0.07 Normal 0.00-0.20 [facility] Comment on above: Performed By: #### U RTPRT #### [address] [id number] Binitrotoluene Operator: Placido Pierce MD #### MG RENP, UA #### [facility] [address] [place], [place] 1972090 Binitrotoluene Operator: Emily George MD Renal Function Panelon 05-17 Albumin [Mass/Vol] 4.1 g/dL Normal 3.5-5.2 [facility] Comment on above: Performed By: #### P THNCA, VD25, URTPRT #### [address] [place], [place] 0751708 Binitrotoluene Operator: Placido Pierce MD #### RENP #### [facility] [address] [place], [place] 3815190 Binitrotoluene Operator: Emily George MD Anion gap [Moles/Vol] 7 mmol/L Low 9-17 [facility] Comment on above: Performed By: #### P THNCA, VD25, URTPRT #### [address] 0327608 Binitrotoluene Operator: Placido Pierce MD #### RENP #### [facility] [address] [place], [place] 2043990 Binitrotoluene Operator: Emily George MD BUN/CRE Ratio 15 Normal 9-[address] [facility] Comment on above: Performed By: #### P THNCA, VD25, URTPRT #### [address] [address] Binitrotoluene Operator: Placido Pierce MD #### RENP #### [facility] [address] [place], [place] 9912490 Binitrotoluene Operator: Emily George MD Calcium [Mass/Vol] 9.5 mg/dL Normal 8.6-10.4 [facility] Comment on above: Performed By: #### P THNCA, VD25, URTPRT #### [address] 1109508 Binitrotoluene Operator: Placido Pierce MD #### RENP #### [facility] [address] [place], [place] 4947990 Binitrotoluene Operator: Emily George MD Chloride [Moles/Vol] 101 mmol/L Normal 98-107 [facility] Comment on above: Performed By: #### P THNCA, VD25, URTPRT #### [address] [id number] Binitrotoluene Operator: Placido Pierce MD #### RENP #### [facility] [address] [place], [place] 8724190 Binitrotoluene Operator: Emily George MD CO2 [Moles/Vol] 29 mmol/L Normal 20-31 [facility] Comment on above: Performed By: #### P BIBIA, VD25, URTPRT #### [address] [id number] Binitrotoluene Operator: Placido Pierce MD #### RENP #### [facility] [address] [place], [place] 7417690 Binitrotoluene Operator: Emily George MD Creatinine [Mass/Vol] 1.1 mg/dL High 0.5-0.9 [facility] Comment on above: Performed By: #### P THNCA, VD25, URTPRT #### [address] [phone] Binitrotoluene Operator: Placido Pierce MD #### RENP #### [facility] [address] [place], [place] 7095390 Binitrotoluene Operator: Emily George MD GFR/1.73 sq M.predicted among non-blacks MDRD (S/P/Bld) [Vol rate/Area] mL/min/{1.73_m2} Normal >60 [facility] Comment on above: Result Comment: These [...] By: #### P THNCA, VD25, URTPRT #### [address] [id number] Binitrotoluene Operator: Placido Pierce MD #### RENP #### [facility] [address] [place], [place] [id number] Binitrotoluene Operator: Emily George MD Glucose [Mass/Vol] 105 mg/dL High 70-99 [facility] Comment on above: Performed By: #### P THEMILYA, VD25, URTPRT #### [address] [id number] Binitrotoluene Operator: Placido Pierce MD #### RENP #### [facility] [address] [place], [place] [id number] Binitrotoluene Operator: Emily George MD Phosphorus, Inorg. 3.0 mg/dL Normal 2.6-4.5 [facility] Comment on above: Performed By: #### P BIBIA, VD25, URTPRT #### [address] [id number] Binitrotoluene Operator: Placido Pierce MD #### RENP #### [facility] [address] [place], [place] [id number] Binitrotoluene Operator: Emily George MD Potassium [Moles/Vol] 4.3 mmol/L Normal 3.7-5.3 [facility] Comment on above: Performed By: #### P THNCA, VD25, URTPRT #### [address] [id number] Binitrotoluene Operator: Placido Pierce MD #### RENP #### [facility] [address] [place], [place] [id number] Binitrotoluene Operator: Emily George MD Sodium [Moles/Vol] 137 mmol/L Normal 135-144 [facility] Comment on above: Performed By: #### P THEMILYA, VD25, URTPRT #### [facility] [address] [place], [place] [id number] Binitrotoluene Operator: Placido Pierce MD #### RENP #### [facility] [address] [facility] [place], [place] [id number] Binitrotoluene Operator: Emiyl George MD Urea nitrogen [Mass/Vol] 17 mg/dL Normal 6-20 [facility] Comment on above: Performed By: #### P FELIPE, VD25, URTPRT #### [address] [place], [place] [id number] Binitrotoluene Operator: Placido Pierce MD #### RENP #### [facility] [address] [place], [place] [id number] Binitrotoluene Operator: Emily George MD Vitamin D 25 OHon 05-17-2023 Vitamin D 25 [place] 53.1 ng/mL Normal >29.9 [facility] Comment on above: Result Comment: Reference Range: Vitamin D status Range Deficiency <20 ng/mL Mild Deficiency 20-30 ng/mL Sufficiency 30-100 ng/mL Toxicity >100 ng/mL Performed By: #### P FELIPE, VD25, URTPRT #### [address] [id number] Binitrotoluene Operator: Placido Pierec MD #### RENP #### [facility] [address] [facility] [place] [address] Binitrotoluene Operator: Emily George MD XR ORTHO FOOT LEFTon [...] ThuMarch 04, 2023 4:22:25 PM EDT Normal [facility] Comment on above: Order Comment: Injur y/Trauma or Illness?:Illness/Other How long have you had these symptoms (acute/chronic)?:Chronic Reason for exam?:Left foot charcot History of cancer?:Unknown Surgeries, chemotherapy, or radiation?:Unknown Type of Exam?:Initial Additional signs and symptoms?:Left foot charcot BUN & Creatinineon Creatinine [Mass/Vol] 1.08 mg/dL High 0.50 - 0.90 mg/dL [facility] [employer] GFR/1.73 sq M.predicted MDRD (S/P/Bld) [Vol rate/Area] - [facility] Comment on above: These results are not [...] 21 mg/dL High 6 - 20 mg/dL [employer] CBC with Auto Differentialon 02-05-2023 Absolute Eos # 0.10 [facility] [employer] Absolute Lymph # 1.70 [facility] [employer] [employer] Absolute [place] # 0.50 [facility] Basophils (Bld) [#/Vol] 0.00 10*3/uL [facility] [employer] Basophils/100 WBC (Bld) 1 % 0 - 2 % [facility] Differential Type YES [facility] Eosinophils/100 WBC (Bld) 1 % 0 - 5 % [facility] Hematocrit (Bld) [Volume fraction] 36.2 % 36 - 46 % [facility] Hemoglobin (Bld) [Mass/Vol] 12.2 g/dL 12.0 - 16.0 g/dL [facility] Interpretation and review of laboratory results Abnormal [facility] Lymphocytes/100 WBC (Bld) 23 % 15 - 40 % [facility] MCH (RBC) [Entitic mass] 28.7 pg 26 - 34 pg [facility] MCHC (RBC) [Mass/Vol] 33.7 g/dL 31 - 37 g/dL [facility] MCV (RBC) [Entitic vol] 85.3 fL 80 - 100 fL [facility] Monocytes/100 WBC (Bld) 7 % 4 - 8 % [facility] Platelet distribution width (Bld) [Ratio] 18.1 % High 12.1 - 15.2 % [facility] Platelets (Bld) [#/Vol] 150 10*3/uL [facility] RBC (Bld) [#/Vol] 4.25 10*6/uL 4.0 - 5.2 m/uL [facility] Segmented neutrophils/100 WBC (Bld) 68 % 47 - 75 % [facility] Segs Absolute 5.30 [facility] WBC (Bld) [#/Vol] 7.6 10*3/uL [facility] Chlorideon 02-05-2023 Chloride [Moles/Vol] 99 mmol/L 98 - 10 7 mmol/L [facility] Glucose, Randomon 02-05-2023 Glucose [Mass/Vol] 107 mg/dL High 70 - 99 mg/dL [facility] No Panel Informationon 02-05 Interpretation and review of laboratory results Abnormal [facility] Potassiumon 02-05-2023 Potassium [Moles/Vol] 4.6 mmol/L 3.7 - 5.3 mmol/L [facility] Sodiumon 02-05-2023 Sodium [Moles/Vol] 134 mmol/L Low 135 - 144 mmol/L [facility] Wet Prep, Genitalon 02-06-20 Interpretation and review of laboratory results Abnormal [facility] Microorganism or agent identified Nom (Unsp spec) FEW WBC Abnormal [facility] [employer] Microorganism or agent identified Nom (Unsp spec) MODERATE EPITHELIAL CELLS Abnormal [facility] [employer] Microorganism or agent identified Nom (Unsp spec) MODERATE BACTERIA Abnormal [facility] Microorganism or agent identified Nom (Unsp spec) NO TRICHOMONAS SEEN [facility] [employer] Microorganism or agent identified Nom (Unsp spec) NO FUNGAL ELEMENTS SEEN [facility] Microorganism or agent identified Nom (Unsp spec) NO CLUECELL SEEN [facility] Specimen Description .VAGINA [facility] FOOT LT WO CONon 02-05-20 CT [...] ELY Date: 2023-02-04 20:[address] [facility] XR ANKLE LEFT 3+ VIEWS (ABDOULAYE [...] ThuJan 06, 2023 6:11:26 PM EDT Normal [facility] Comment on above: Order Comment: Injur y/Trauma or Illness?:Injury/Trauma How long have you had these symptoms (acute/chronic)?:Acute Reason for exam?:left lateral ankle pain History of cancer?: Surgeries, chemotherapy, or radiation?: Type of Exam?:Initial Mechanism of injury?:rolled ankle 4 days ago Radiology Outside Office Clinical Rehabilitation Liaison yon 08-21-2022 Radiology Outside Office Copy [id number]# 1.00CD:127 Normal [facility] MRI FOOT LEFT W WO CONTRASTo n 06-25-2022 Combined with the accompanying radiographs, 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 [facility] RIS CONSOLIDATED EXAM: MRI [...] osteomyelitis. No nonenhancing abscess pockets are identified. [facility] CONSOLIDATED Mike Villavicencio M D - [...] fragmentation of the navicular and cuneiform bones. [email or web address] Phone: Radiology Study observation (narrative) [email or web address] Phone: MRI FOOT LEFT W WO CONTRASTO rdered By: Mike Villavicencio on 06-25-2022 [email or web address] Phone: XR FOOT LEFT (2 VIEWS)on There is a linear metallic foreign body projecting between the second and third metatarsals. There is also a metallic foreign body within the lower leg. There is fragmentation of the navicular as well as of all 3 cuneiforms. The appearance is consistent with the patient's history of neuropathy. [facility] CONSOLIDATED EXAM: XR FOOT LEFT ( 2 VIEWS) HISTORY: M79.5. The patient is a 42-year-old female. Evaluate for foreign body. COMPARISON: None. [facility] CONSOLID[facility] Mike Villavicencio M D - [...] consistent with the patient's history of neuropathy. 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 Clinical follow up recommended. Subcentimeter highly suspicious nodule in the right thyroid lobe 7 mm in greatest dimension. This meets criteria for annual follow up for 5 years. It does not meet criteria for FNA. [facility] CONSOLIDATED EXAM: US HEAD NECK SOFT [...] fat without shadowing, suggestive of a lipoma. [facility] CONSOLID[facility] TraMicky espinosa Jr., MD - 05/27/2022 [...] It does not meet criteria for FNA. [email or web address] Phone: Radiology Study observation (narrative) [email or web address] Phone: US HEAD NECK SOFT TISSUE THY ROIDOrdered By: Micky Lauren on 05-27-2022 [facility] [email or web address] Phone: Rejection Notificationon Reason see below Normal [facility] Comment on above: Result Comment: Unab le to perform testing; no specimen received. To perform testing the specimen will need to be recollected. No spec Performed By: #### R EJEC #### [facility] [address] [facility] [id number] Rejected Test CXURN [facility] Comment on above: Performed By: #### R EJEC #### [facility] [address] [facility] [id number] LDL Cholesterol, Directon Cholesterol in LDL [Mass/Vol] 84 mg/dL <100 [facility] CBC with Auto Differentialon 04-12-2022 Absolute Eos # 0.10 [facility] SECOUR S [facility] Absolute Lymph # 1.40 [facility] Absolute [place] # 0.30 [facility] Basophils (Bld) [#/Vol] 0.00 10*3/uL [facility] Basophils/100 WBC (Bld) 1 % 0 - 2 % [facility] Differential Type YES [facility] Eosinophils/100 WBC (Bld) 1 % 0 - 5 % [facility] Hematocrit (Bld) [Volume fraction] 35.7 % Low 36 - 46 % [facility] Hemoglobin (Bld) [Mass/Vol] 12.0 g/dL 12.0 - 16.0 g/dL [facility] Interpretation and review of laboratory results Abnormal [facility] Lymphocytes/100 WBC (Bld) 25 % 15 - 40 % [facility] MCH (RBC) [Entitic mass] 28.0 pg 26 - 34 pg [facility] MCHC (RBC) [Mass/Vol] 33.7 g/dL 31 - 37 g/dL [facility] MCV (RBC) [Entitic vol] 83.3 fL 80 - 100 fL [facility] Monocytes/100 WBC (Bld) 5 % 4 - 8 % [facility] Platelet distribution width (Bld) [Ratio] 16.4 % High 12.1 - 15.2 % [facility] Platelets (Bld) [#/Vol] 168 10*3/uL [facility] RBC (Bld) [#/Vol] 4.29 10*6/uL 4.0 - 5.2 m/uL [facility] Segmented neutrophils/100 WBC (Bld) 68 % 47 - 75 % [facility] Segs Absolute 3.90 [facility] WBC (Bld) [#/Vol] 5.7 10*3/uL [facility] 04-12-2022 Albumin [Mass/Vol] 4.2 g/dL 3.5 - 5.2 g/dL [facility] ALP (Bld) [Catalytic activity/Vol] 88 U/L 35 - 104 U/L [facility] ALT [Catalytic activity/Vol] 29 U/L 5 - 33 U/L [facility] Anion gap [Moles/Vol] 11 mmol/L 9 - 17 mmol/L [facility] AST [Catalytic activity/Vol] 27 U/L <32 [facility] Bilirubin [Mass/Vol] 0.65 mg/dL 0.30 - 1.20 mg/dL [facility] Calcium [Mass/Vol] 9.1 mg/dL 8.6 - 10. 4 mg/dL [facility] Chloride [Moles/Vol] 101 mmol/L 98 - 10 7 mmol/L [facility] CO2 [Moles/Vol] 28 mmol/L 20 - 31 mmol/L [facility] Creatinine [Mass/Vol] 1.04 mg/dL High 0.50 - 0.90 mg/dL [facility] Free PSA/Total PSA [Mass fraction] 6.8 g/dL 6.4 - 8.3 g/dL [facility] GFR >60 >60 mL/min [facility] GFR Non- 58 mL/min Low >60 [facility] GFR/1.73 sq M.predicted MDRD (S/P/Bld) [Vol rate/Area] [facility] Comment on above: Average GFR for 40-4 9 years old: 99 mL/min/1.73sq m Chronic Kidney Disease: <60 mL/min/1.73sq m Kidney failure: <15 mL/min/1.73sq m eGFR calculated using average adult body mass. Additional eGFR calculator available at: http://www.Roomixer/multiple_crcl_2012.htm Glucose [Mass/Vol] 103 mg/dL High 70 - 99 mg/dL [facility] Interpretation and review of laboratory results Abnormal [facility] Potassium [Moles/Vol] 3.9 mmol/L 3.7 - 5.3 mmol/L [facility] Sodium [Moles/Vol] 140 mmol/L 135 - 144 mmol/L [facility] Urea nitrogen (BldV) [Mass/Vol] 13 mg/dL 6 - 20 mg/dL [facility] Urea nitrogen/Creatinine (Bld) [Mass ratio] 13 [facility] HIV Screenon 04-12-2022 HIV Ag/Ab Non-Reactive NONREACTIVE [facility] Comment on above: No laboratory eviden ce of HIV infection. If acute HIV infection is suspected, consider testing for HIV-1 RNA. [facility] Lipid Panelon 04-12-2022 Cholesterol [Mass/Vol] 184 mg/dL <200 [facility] Comment on above: Cholesterol Guidelines: <200 Desirable 200-240 Borderline >240 Undesirable Cholesterol in HDL [Mass/Vol] 30 mg/dL Low >40 [facility] Comment on above: HDL Guidelines: <40 Undesirable 40-59 Borderline >59 Desirable Cholesterol.total/Cho lesterol in HDL [Mass ratio] 6.1 {ratio} High <5 [facility] Interpretation and review of laboratory results Abnormal [facility] LDL Cholesterol 0 - 130 mg/dL [facility] Comment on above: Calculation not jacqueline d for Triglyceride value greater than 400 mg/dL. Direct LDL reflexed LDL Guidelines: <100 Desirable 100-129 Near to/above Desirable 130-159 Borderline >159 Undesirable Direct (measured) LDL and calculated LDL are not interchangeable tests. Triglyceride [Mass/Vol] 460 mg/dL High <150 [facility] Comment on above: Triglyceride Guidelines: <150 Desirable 150-199 Borderline 200-499 High >499 Very high Based on AHA Guidelines for fasting triglyceride, July 2012. [facility] No Panel Informationon 04-12 [facility] TSH with Reflexon 04-12-2022 TSH Qn 0.99 m[IU]/L [facility] Urinalysis with MicroscopicO rdered By: Lita Weeks on 08-01-2021 - [facility] Work Phone: Amorphous, UA NOT REPORTED None [facility] Work Phone: Bacteria, UA RARE Abnormal None [facility] Work Phone: Bilirubin Urine Negative NEGATIVE [facility] Work Phone: Casts UA NOT REPORTED /LPF [facility] [employer] Work Phone: Color, UA Yellow Yellow [facility] Work Phone: Crystals, UA NOT REPORTED None /HPF [facility] Work Phone: Epithelial Cells UA 2 TO 5 /HPF [facility] Work Phone: Glucose, Ur Negative NEGATIVE [facility] [employer] Work Phone: Interpretation and review of laboratory results Abnormal [facility] [employer] Work Phone: Ketones Ql (U) Negative NEGATIVE [facility] Work Phone: Leukocyte esterase Test strip Ql (U) Negative NEGATIVE [facility] [employer] Work Phone: Mucus, UA NOT REPORTED None [facility] [employer] Work Phone: Nitrite, Urine Negative NEGATIVE [facility] Work Phone: Other Observations UA NOT REPORTED NOT REQ. M [facility] [employer] Work Phone: pH, UA 6.0 [facility] [employer] Work Phone: Protein, UA Negative NEGATIVE [facility] Work Phone: RBC, UA NOT REPORTED [facility] Work Phone: Renal Epithelial, UA NOT REPORTED 0 /HPF [facility] Work Phone: Specific [place], UA 1.020 [facility] [employer] Work Phone: Trichomonas, UA NOT REPORTED None [facility] Work Phone: Turbidity UA Clear Clear [facility] [employer] Work Phone: Urinalysis Comments [facility] [employer] Work Phone: Urine Hgb Negative NEGATIVE [facility] [employer] Work Phone: Urobilinogen, Urine Normal Normal [facility] Phone: WBC, UA NOT REPORTED 0 /HPF [facility] Work Phone: Yeast, UA NOT REPORTED None [facility] Work Phone: [facility] Work Phone: Urinalysis with MicroscopicO rdered By: Lita Weeks on 07-11-2021 - [employer] Work Phone: Amorphous, UA NOT REPORTED None [facility] Work Phone: Bacteria, UA 3+ Abnormal None [facility] Work Phone: Bilirubin Urine Negative NEGATIVE [facility] Work Phone: Casts UA NOT REPORTED /LPF [facility] Work Phone: Color, UA Yellow Yellow [facility] Work Phone: Crystals, UA NOT REPORTED None /HPF [facility] Work Phone: Epithelial Cells UA 2 TO 5 /HPF [facility] Work Phone: Glucose, Ur Negative NEGATIVE [employer] Phone: Interpretation and review of laboratory results Abnormal [employer] Work Phone: Ketones Ql (U) Negative NEGATIVE [facility] Work Phone: Leukocyte esterase Test strip Ql (U) 2+ Abnormal NEGATIVE [employer] Work Phone: Mucus, UA NOT REPORTED None [facility] Work Phone: Nitrite, Urine Positive Abnormal NEGATIVE [facility] Work Phone: Other Observations UA NOT REPORTED NOT REQ. [facility] Work Phone: pH, UA 6.0 [facility] Work Phone: Protein, UA Negative NEGATIVE [facility] Work Phone: RBC, UA NOT REPORTED [employer] Phone: Renal Epithelial, UA NOT REPORTED 0 /HPF [facility] [employer] Work Phone: Specific [place], UA 1.025 [employer] Phone: Trichomonas, UA NOT REPORTED None [employer] [facility] Work Phone: Turbidity UA Hazy Abnormal Clear [employer] Work Phone: Urinalysis Comments [employer] Phone: Urine Hgb Negative NEGATIVE [employer] Phone: Urobilinogen, Urine Normal Normal [employer] Phone: WBC, UA 20 TO 50 0 /HPF [facility] Phone: Yeast, UA NOT REPORTED None [facility] Phone: [employer] Phone: AlbuminOrdered By: Gregory stevens on 05-20-2021 Albumin [Mass/Vol] 4.2 g/dL 3.5 - 5.2 g/dL [employer] Phone: BUN & CreatinineOrdered By: Gregory Forbes on 05-20-2021 Creatinine [Mass/Vol] 1.18 mg/dL High 0.50 - 0.90 mg/dL [employer] Phone: GFR >60 >60 mL/min [employer] Phone: GFR Non- 50 mL/min Low >60 [employer] Phone: GFR/1.73 sq M.predicted MDRD (S/P/Bld) [Vol rate/Area] [employer] Phone: Comment on above: Average GFR for 40-4 9 years old: 99 mL/min/1.73sq m Chronic Kidney Disease: <60 mL/min/1.73sq m Kidney failure: <15 mL/min/1.73sq m eGFR calculated using average adult body mass. Additional eGFR calculator available at: http://www.Parudi.CloSys/multiple_crcl_2012.htm GFR/1.73 sq M.predicted MDRD (S/P/Bld) [Vol rate/Area] NOT REPORTED [employer] Phone: Interpretation and review of laboratory results Abnormal [employer] Phone: Urea nitrogen (BldV) [Mass/Vol] 19 mg/dL 6 - 20 mg/dL [employer] Phone: CalciumOrdered By: Gregory stevens on 05-20-2021 Calcium [Mass/Vol] 9.2 mg/dL 8.6 - 10. 4 mg/dL [employer] Phone: Electrolyte PanelOrdered By: Gregory Forbes on 05-20-2021 Anion gap [Moles/Vol] 10 mmol/L 9 - 17 mmol/L [employer] Phone: Chloride [Moles/Vol] 103 mmol/L 98 - 10 7 mmol/L [employer] Phone: CO2 [Moles/Vol] 25 mmol/L 20 - 31 mmol/L [employer] Phone: Potassium [Moles/Vol] 4.2 mmol/L 3.7 - 5.3 mmol/L [employer] Phone: Sodium [Moles/Vol] 138 mmol/L 135 - 144 mmol/L [employer] Phone: MagnesiumOrdered By: Gregory high on 05-20-2021 Magnesium [Mass/Vol] 2.2 mg/dL 1.6 - 2 .6 mg/dL [employer] Phone: No Panel InformationOrdered By: Gregory Forbes on 05-20-2021 [employer] Phone: PhosphorusOrdered By: Gregory Forbes on 05-20-2021 Phosphate [Mass/Vol] 3.7 mg/dL 2.6 - 4 .5 mg/dL [employer] Phone: UrinalysisOrdered By: Gregory Forbes on 05-20-2021 Bilirubin Urine Negative NEGATIVE [employer] [facility] Work Phone: Color, UA YELLOW YELLOW [employer] Work Phone: Glucose, Ur Negative NEGATIVE [employer] Work Phone: Interpretation and review of laboratory results Abnormal [employer] Work Phone: Ketones Ql (U) Negative NEGATIVE [facility] Work Phone: Leukocyte esterase Test strip Ql (U) Negative NEGATIVE [employer] Phone: Nitrite, Urine Negative NEGATIVE [facility] Work Phone: pH, UA 5.0 [facility] Work Phone: Protein, UA TRACE Abnormal NEGATIVE [employer] Phone: Specific [place], UA 1.020 [employer] Phone: Turbidity UA CLEAR CLEAR [employer] Phone: Urinalysis Comments [employer] Phone: Urine Hgb Negative NEGATIVE [employer] Phone: Urobilinogen, Urine Normal Normal [employer] Phone: [employer] Phone: COVID-19Ordered By: Pattie smith on 01-22-2021 SARS-CoV-2 (COVID-19) RNA SHARMIN+probe Ql (Unsp spec) [employer] Phone: SARS-CoV-2 (COVID-19) RNA SHARMIN+probe Ql (Unsp spec) Not detected Not Detected [employer] Phone: Comment on above: The specimen is NEGATIVE for SARS-CoV-2, the novel coronavirus associated with COVID-19. A negative result does not rule out COVID-19. Twin SARS-CoV-2 for use on the Twin [employer] is a real-time RT-PCR test intended [...] this assay. Fact sheet for Healthcare Providers: https://www.fda.gov/media/866128/download Fact sheet for Patients: https://www.fda.gov/media/611340/download METHODOLOGY: RT-PCR Source .THROAT [facility] [employer] Phone: COVID-19, PCRon 11-15-2020 SARS-CoV-2, Rapid Not Detected Not Detected [facility] [employer] Phone: Comment on above: Rapid NAAT: The [...] management decisions. Fact sheet for Healthcare Providers: https://www.fda.gov/media/863938/download Fact sheet for Patients: https://www.fda.gov/media/285360/download Methodology: Isothermal Nucleic Acid Amplification Source .THROAT [facility] [employer] Work Phone: Otheron 11-15-2020 SARS-CoV-2 [facility] [employer] Work Phone: CBC Auto Differentialon 09-04 Basophils (Bld) [#/Vol] 0.10 10*3/uL [place], [place] Basophils/100 WBC (Bld) 1 % 0 - 2 % [place] Differential Type YES [facility] [place] Eosinophils (Bld) [#/Vol] 0.10 10*3/uL [place] Eosinophils/100 WBC (Bld) 1 % 0 - 5 % [place] Erythrocyte distribution width (RBC) [Ratio] 16.3 % High 12.1 - 15.2 % [place] Hematocrit (Bld) [Volume fraction] 36.5 % 36 - 46 % [place] Hemoglobin (Bld) [Mass/Vol] 12.5 g/dL 12 - 16 g/dL [place] Interpretation and review of laboratory results Abnormal [place] Lymphocytes (Bld) [#/Vol] 1.90 10*3/uL [place] Lymphocytes/100 WBC (Bld) 25 % 15 - 40 % [place] MCH (RBC) [Entitic mass] 28.8 pg 26 - 34 pg [place] MCHC (RBC) [Mass/Vol] 34.3 g/dL 31 - 37 g/dL [place] MCV (RBC) [Entitic vol] 84.0 fL 80 - 100 fL [place] Monocytes (Bld) [#/Vol] 0.40 10*3/uL [place] Monocytes/100 WBC (Bld) 5 % 4 - 8 % [place] Platelet mean volume (Bld) [Entitic vol] NOT REPORTED 6 - 12 fL [place], [place] Platelets (Bld) [#/Vol] 167 10*3/uL [place] Platelets (Bld) [#/Vol] NOT REPORTED [place] RBC (Bld) [#/Vol] 4.35 10*6/uL 4 - 5.2 m/uL [place], [place] RBC morphology finding Nom (Bld) NOT REPORTED [place] Segmented neutrophils/100 WBC (Bld) 68 % 47 - 75 % [place] Segs Absolute 5.40 [place] WBC (Bld) [#/Vol] 7.8 10*3/uL [place] WBC (Bld) [#/Vol] NOT REPORTED per 100 WBC [place], [place] WBC Morphology NOT REPORTED [place], [place] Comprehensive Metabolic Pane l w/ Reflex to MGon 09-16-2020 Albumin [Mass/Vol] 4.4 g/dL 3.5 - 5.2 g/dL [place] Albumin/Globulin [Mass ratio] NOT REPORTED [place] ALP [Catalytic activity/Vol] 117 U/L High 35 - 104 U/L [place] ALT [Catalytic activity/Vol] 41 U/L High 5 - 33 U/L [place] Anion gap [Moles/Vol] 10 mmol/L 9 - 17 mmol/L [place] AST [Catalytic activity/Vol] 39 U/L High <32 [place] Bilirubin Ql (U) 0.52 mg/dL 0.3 - 1.2 mg/dL [place] Bun/Cre Ratio 11 [place] Calcium [Mass/Vol] 9.0 mg/dL 8.6 - 10. 4 mg/dL [place] Chloride [Moles/Vol] 101 mmol/L 98 - 10 7 mmol/L [place] CO2 [Moles/Vol] 26 mmol/L 20 - 31 mmol/L [place] Creatinine [Mass/Vol] 1.32 mg/dL High 0.5 - 0.9 mg/dL [place] GFR 54 mL/min Low >60 [place] GFR Non- 44 mL/min Low >60 [place] GFR/1.73 sq M predicted among non-blacks MDRD (S/P/Bld) [Vol rate/Area] [place], [place] Comment on above: Average GFR for 40-4 9 years old: 99 mL/min/1.73sq m Chronic Kidney Disease: <60 mL/min/1.73sq m Kidney failure: <15 mL/min/1.73sq m eGFR calculated using average adult body mass. Additional eGFR calculator available at: http://www.Roomixer/multiple_crcl_2012.htm GFR/1.73 sq M predicted among non-blacks MDRD (S/P/Bld) [Vol rate/Area] NOT REPORTED [place], [place] Glucose [Mass/Vol] 173 mg/dL High 70 - 99 mg/dL [place] Interpretation and review of laboratory results Abnormal [place], [place] Potassium [Moles/Vol] 3.9 mmol/L 3.7 - 5.3 mmol/L [place] Protein [Mass/Vol] 7.3 g/dL 6.4 - 8.3 g/dL [place] Sodium [Moles/Vol] 137 mmol/L 135 - 144 mmol/L [place] Urea nitrogen [Mass/Vol] 15 mg/dL 6 - 20 mg/dL [place] Otheron 09-16-2020 Immature granulocytes (Bld) [#/Vol] NOT REPORTED [place] Sedimentation Rateon 020 Sed Rate 15 mm 0 - 20 mm [place] Urinalysis, reflex to micros copicon 09-16-2020 Bilirubin Urine Negative NEGATIVE [place] Color, UA YELLOW YELLOW [place], [place] Glucose, Ur Negative NEGATIVE [place] Interpretation and review of laboratory results Abnormal [place], [place] Ketones Ql (U) Negative NEGATIVE [place] Leukocyte esterase Test strip Ql (U) Negative NEGATIVE [place] Nitrite, Urine Negative NEGATIVE [place] pH, UA 5.0 [place], [place] Protein (U) [Mass/Vol] TRACE Abnormal NEGATIVE [place] Specific [place], UA 1.025 [place], [place] Turbidity UA CLEAR CLEAR [place] Urinalysis Comments [place] Urine Hgb Negative NEGATIVE [place] Urobilinogen, Urine Normal Normal [place] C-Reactive Proteinon 020 CRP [Mass/Vol] 6 mg/L High 0 - 5 mg/L [place] Interpretation and review of laboratory results Abnormal [place], [place] CBC With Auto Differentialon 08-24-2020 Basophils (Bld) [#/Vol] 0.00 10*3/uL [place] Basophils/100 WBC (Bld) 1 % 0 - 2 % [place] Differential Type YES [place] Eosinophils (Bld) [#/Vol] 0.10 10*3/uL [place] Eosinophils/100 WBC (Bld) 1 % 0 - 5 % [place] Erythrocyte distribution width (RBC) [Ratio] 16.2 % High 12.1 - 15.2 % [place] Hematocrit (Bld) [Volume fraction] 35.4 % Low 36 - 46 % [place] Hemoglobin (Bld) [Mass/Vol] 12.2 g/dL 12 - 16 g/dL [place] Interpretation and review of laboratory results Abnormal [place] Lymphocytes (Bld) [#/Vol] 1.60 10*3/uL [place] Lymphocytes/100 WBC (Bld) 28 % 15 - 40 % [place] MCH (RBC) [Entitic mass] 29.1 pg 26 - 34 pg [place] MCHC (RBC) [Mass/Vol] 34.5 g/dL 31 - 37 g/dL [place] MCV (RBC) [Entitic vol] 84.2 fL 80 - 100 fL [place] Monocytes (Bld) [#/Vol] 0.40 10*3/uL [place] Monocytes/100 WBC (Bld) 6 % 4 - 8 % [place] Platelet mean volume (Bld) [Entitic vol] NOT REPORTED 6 - 12 fL [place] Platelets (Bld) [#/Vol] 160 10*3/uL [place] Platelets (Bld) [#/Vol] NOT REPORTED [place] RBC (Bld) [#/Vol] 4.20 10*6/uL 4 - 5.2 m/uL [place] RBC morphology finding Nom (Bld) NOT REPORTED [place] Segmented neutrophils/100 WBC (Bld) 64 % 47 - 75 % [place] Segs Absolute 3.80 [place] WBC (Bld) [#/Vol] 5.8 10*3/uL [place] WBC (Bld) [#/Vol] NOT REPORTED per 100 WBC [place] WBC Morphology NOT REPORTED [place] Otheron 08-24-2020 Immature granulocytes (Bld) [#/Vol] NOT REPORTED 0 % [place] Sedimentation Rateon 020 Sed Rate 10 mm 0 - 20 mm [place] C-Reactive Proteinon 020 CRP [Mass/Vol] 2 mg/L 0 - 5 mg/L [place], [place] CBC With Auto Differentialon 07-24-2020 Basophils (Bld) [#/Vol] 0.10 10*3/uL [place] Basophils/100 WBC (Bld) 1 % 0 - 2 % [place] Differential Type YES [place] Eosinophils (Bld) [#/Vol] 0.10 10*3/uL [place] Eosinophils/100 WBC (Bld) 1 % 0 - 5 % [place] Erythrocyte distribution width (RBC) [Ratio] 16.8 % High 12.1 - 15.2 % [place] Hematocrit (Bld) [Volume fraction] 40.0 % 36 - 46 % [place] Hemoglobin (Bld) [Mass/Vol] 13.5 g/dL 12 - 16 g/dL [place] Interpretation and review of laboratory results Abnormal [place] Lymphocytes (Bld) [#/Vol] 1.70 10*3/uL [place] Lymphocytes/100 WBC (Bld) 17 % 15 - 40 % [place] MCH (RBC) [Entitic mass] 29.1 pg 26 - 34 pg [place] MCHC (RBC) [Mass/Vol] 33.8 g/dL 31 - 37 g/dL [place] MCV (RBC) [Entitic vol] 86.0 fL 80 - 100 fL [place] Monocytes (Bld) [#/Vol] 0.50 10*3/uL [place] Monocytes/100 WBC (Bld) 5 % 4 - 8 % [place] Platelet mean volume (Bld) [Entitic vol] NOT REPORTED 6 - 12 fL [place] Platelets (Bld) [#/Vol] NOT REPORTED [place] Platelets (Bld) [#/Vol] 208 10*3/uL [place] RBC (Bld) [#/Vol] 4.65 10*6/uL 4 - 5.2 m/uL [place] RBC morphology finding Nom (Bld) NOT REPORTED [place] Segmented neutrophils/100 WBC (Bld) 76 % High 47 - 75 % [place] Segs Absolute 7.70 [place] WBC (Bld) [#/Vol] NOT REPORTED per 100 WBC [place] WBC (Bld) [#/Vol] 10.0 10*3/uL [place] WBC Morphology NOT REPORTED [place] Otheron 07-24-2020 Immature granulocytes (Bld) [#/Vol] NOT REPORTED 0 % [place] Sedimentation Rateon 020 Sed Rate 6 mm 0 - 20 mm [place] Protein / creatinine ratio, urineon 06-07-2020 Creatinine, Ur 101.2 mg/dL 28 - 217 mg/dL [place] Protein (U) [Mass/Vol] 8 mg/dL [place] Comment on above: No normal range esta blished. Urine Total Protein Creatinine Ratio 0.08 [place] Urinalysison 06-07-2020 Bilirubin Urine Negative NEGATIVE [facility] [place] Color, UA YELLOW YELLOW [place], [place] Glucose, Ur 100 mg/dL Abnormal NEGATIVE [place] Interpretation and review of laboratory results Abnormal [place] Ketones Ql (U) Negative NEGATIVE [place] Leukocyte esterase Test strip Ql (U) Negative NEGATIVE [place] Nitrite, Urine Negative NEGATIVE [place] pH, UA 6.0 [place], [place] Protein (U) [Mass/Vol] Negative NEGATIVE [place] Specific [place], UA 1.020 [place], [place] Turbidity UA CLEAR CLEAR [place] Urinalysis Comments [place] Urine Hgb Negative NEGATIVE [place] Urobilinogen, Urine Normal Normal [place], [place] Comprehensive Metabolic Pane ananda 05-25-2020 Albumin [Mass/Vol] 4.4 g/dL 3.5 - 5.2 g/dL [place] Albumin/Globulin [Mass ratio] NOT REPORTED [place] ALP [Catalytic activity/Vol] 87 U/L 35 - 104 U/L [place] ALT [Catalytic activity/Vol] 21 U/L 5 - 33 U/L [place] Anion gap [Moles/Vol] 10 mmol/L 9 - 17 mmol/L [place] AST [Catalytic activity/Vol] 22 U/L <32 [place] Bilirubin Ql (U) 0.32 mg/dL 0.3 - 1.2 mg/dL [place] Bun/Cre Ratio 18 [place] Calcium [Mass/Vol] 10.1 mg/dL 8.6 - 10. 4 mg/dL [place] Chloride [Moles/Vol] 104 mmol/L 98 - 10 7 mmol/L [place] CO2 [Moles/Vol] 26 mmol/L 20 - 31 mmol/L [place] Creatinine [Mass/Vol] 1.37 mg/dL High 0.5 - 0.9 mg/dL [place] GFR 52 mL/min Low >60 [place], [place] GFR Non- 43 mL/min Low >60 [place] GFR/1.73 sq M predicted among non-blacks MDRD (S/P/Bld) [Vol rate/Area] NOT REPORTED [place] GFR/1.73 sq M predicted among non-blacks MDRD (S/P/Bld) [Vol rate/Area] [place] Comment on above: Average GFR for 40-4 9 years old: 99 mL/min/1.73sq m Chronic Kidney Disease: <60 mL/min/1.73sq m Kidney failure: <15 mL/min/1.73sq m eGFR calculated using average adult body mass. Additional eGFR calculator available at: http://www.Roomixer/multiple_crcl_2012.htm Glucose [Mass/Vol] 160 mg/dL High 70 - 99 mg/dL [place] Interpretation and review of laboratory results Abnormal [place] Potassium [Moles/Vol] 4.6 mmol/L 3.7 - 5.3 mmol/L [place] Protein [Mass/Vol] 7.4 g/dL 6.4 - 8.3 g/dL [place] Sodium [Moles/Vol] 140 mmol/L 135 - 144 mmol/L [place] Urea nitrogen [Mass/Vol] 24 mg/dL High 6 - 20 mg/dL [place] Hemoglobin A1Con 05-25-2020 Glucose [Mass/Vol] 123 mg/dL [place] Comment on above: The ADA and AACC rec ommend providing the estimated average glucose result to permit better patient understanding of their HBA1c result. HbA1c (Bld) [Mass fraction] 5.9 % 4 - 6 % [place] LDL Cholesterol, Directon Cholesterol in LDL [Mass/Vol] 58 mg/dL <100 [place] Lipid Panelon 05-25-2020 Cholesterol [Mass/Vol] 194 mg/dL <200 [place], [place] Comment on above: Cholesterol Guidelines: <200 Desirable 200-240 Borderline >240 Undesirable Cholesterol in HDL [Mass/Vol] 27 mg/dL Low >40 [place] Comment on above: HDL Guidelines: <40 Undesirable 40-59 Borderline >59 Desirable Cholesterol in LDL [Mass/Vol] 0 - 130 mg/dL [place] Comment on above: Calculation not jacqueline d for Triglyceride value greater than 400 mg/dL. Direct LDL reflexed LDL Guidelines: <100 Desirable 100-129 Near to/above Desirable 130-159 Borderline >159 Undesirable Direct (measured) LDL and calculated LDL are not interchangeable tests. Cholesterol in VLDL [Mass/Vol] NOT REPORTED 1 - 30 mg/dL [place] Cholesterol.total/Cho lesterol in HDL [Mass ratio] 7.2 {ratio} High <5 [place] Interpretation and review of laboratory results Abnormal [place] Triglyceride [Mass/Vol] 1112 mg/dL High <150 [place], [place] Comment on above: Triglyceride Guidelines: <150 Desirable 150-199 Borderline 200-499 High >499 Very high Based on AHA Guidelines for fasting triglyceride, July 2012. Patient Fasting?on 0 Patient Fasting? YES [place] Vitamin D 25 Hydroxyon 05-25 Vit D, 25-Hydroxy 30.2 ng/mL 30 - 100 ng/mL [place] Comment on above: Reference Range: Vitamin D status Range Deficiency <20 ng/mL Mild Deficiency 20-30 ng/mL Sufficiency 30-100 ng/mL Toxicity >100 ng/mL C-Reactive Proteinon 020 CRP [Mass/Vol] 6.2 mg/L High 0 - 5 mg/L [place] Interpretation and review of laboratory results Abnormal [place] Hemoglobin [id number] By: Kevin Allen on 09-24-2019 Glucose [Mass/Vol] 108 mg/dL [facility] Work Phone: Comment on above: The ADA and AACC rec ommend providing the estimated average glucose result to permit better patient understanding of their HBA1c result. HbA1c (Bld) [Mass fraction] 5.4 % 4.8 - 5.9 % [employer] Phone: Homocysteine, SerumOrdered B y: Janel Allen on 09-24-2019 Homocysteine 9 umol/L <15.0 [employer] Phone: TSH without ReflexOrdered By : Janel Allen on 09-24-2019 TSH Qn 1.03 m[IU]/L [employer] Phone: Vitamin B12 & FolateOrdered By: Janel Allen on 09-24-2019 Cobalamin (Vitamin B12) [Mass/Vol] 292 pg/mL 232 - 1245 pg/mL [employer] Phone: Folate 13.8 ng/mL >4.8 [employer] Phone: XR CERVICAL SPINE (4-5 VIEWS )on 07-29-2019 Mild degenerative changes cervical spine not unusual for age. Refer to the MRI [facility] 02/03/2019 with some of the findings discussed above. [facility] [place] EXAM: XR CERVICAL SPINE (4-5 VIEWS) HISTORY: Reason for exam:->history MRSA discitis of thoracic region. New tingling and numbness of fingers COMPARISON: MRI cervical spine [facility] 02/03/2019, cervical spine series 04/03/2010. The [...] Swimmer's lateral view shows no additional abnormality. [place] [facility], [facility] Incoming Radiant Results From [facility] - 07/29/2019 10:05 AM EDT EXAM: XR CERVICAL SPINE (4-5 VIEWS) HISTORY: Reason for exam:->history MRSA discitis of thoracic region. New tingling and numbness of fingers COMPARISON: MRI cervical spine [facility] 02/03/2019, cervical spine series 04/03/2010. The MRI [...] unusual for age. Refer to the MRI [facility] services 02/03/2019 with some of the findings discussed above. [place] C-Reactive ProteinOrdered By : Azalea Knight on 07-28-2019 CRP [Mass/Vol] 6.4 mg/L High 0 - 5 mg/L [place] Interpretation and review of laboratory results Abnormal [place] CBC With Auto DifferentialOr dered By: Azalea Knight on 07-28-2019 Absolute Eos # 0.10 [place], [place] Absolute Immature Granulocyte NOT REPORTED [place], [place] Absolute Lymph # 2.10 [place] Absolute [place] # 0.50 [place] Basophils (Bld) [#/Vol] 0.00 10*3/uL [place] Basophils/100 WBC (Bld) 1 % 0 - 2 % [place] Differential Type YES [facility] [place] Eosinophils/100 WBC (Bld) 1 % 0 - 5 % [place] Erythrocyte distribution width (RBC) [Ratio] 14.5 % 12.1 - 15.2 % [place] Hematocrit (Bld) [Volume fraction] 38.1 % 36 - 46 % [place] Hemoglobin (Bld) [Mass/Vol] 12.9 g/dL 12 - 16 g/dL [place] Immature Granulocytes NOT REPORTED 0 % [place] Lymphocytes/100 WBC (Bld) 34 % 15 - 40 % [place] MCH (RBC) [Entitic mass] 29.5 pg 26 - 34 pg [place] MCHC (RBC) [Mass/Vol] 33.9 g/dL 31 - 37 g/dL [place] MCV (RBC) [Entitic vol] 87.1 fL 80 - 100 fL [place] Monocytes/100 WBC (Bld) 8 % 4 - 8 % [place] MPV NOT REPORTED 6 - 12 fL [place] NRBC Automated NOT REPORTED per 100 WBC [place], [place] Platelet Estimate NOT REPORTED [place] Platelets (Bld) [#/Vol] 222 10*3/uL [place] RBC (Bld) [#/Vol] 4.38 10*6/uL 4 - 5.2 m/uL [place] RBC morphology finding Nom (Bld) NOT REPORTED [place] Segmented neutrophils/100 WBC (Bld) 56 % 47 - 75 % [place] Segs Absolute 3.50 [place] WBC (Bld) [#/Vol] 6.2 10*3/uL [place] WBC Morphology NOT REPORTED [place] Sedimentation RateOrdered By : Azalea Knight on 07-28-2019 Sed Rate 19 mm 0 - 30 mm [place] C-Reactive Proteinon 019 CRP [Mass/Vol] 7.3 mg/L High 0 - 5 mg/L [place] Interpretation and review of laboratory results Abnormal [place] Albuminon 06-17-2019 Albumin [Mass/Vol] 4.3 g/dL 3.5 - 5.2 g/dL [place], [place] BUN & Creatinineon 9 Creatinine [Mass/Vol] 1.27 mg/dL High 0.5 - 0.9 mg/dL [place] GFR 56 mL/min Low >60 [place] GFR Non- 47 mL/min Low >60 [place] GFR/1.73 sq M predicted among non-blacks MDRD (S/P/Bld) [Vol rate/Area] NOT REPORTED [place] GFR/1.73 sq M predicted among non-blacks MDRD (S/P/Bld) [Vol rate/Area] [place] Comment on above: Average GFR for 40-4 9 years old: 99 mL/min/1.73sq m Chronic Kidney Disease: <60 mL/min/1.73sq m Kidney failure: <15 mL/min/1.73sq m eGFR calculated using average adult body mass. Additional eGFR calculator available at: http://www.Roomixer/multiple_crcl_2012.htm Interpretation and review of laboratory results Abnormal [place] Urea nitrogen [Mass/Vol] 18 mg/dL 6 - 20 mg/dL [place] Calciumon 06-17-2019 Calcium [Mass/Vol] 10.4 mg/dL 8.6 - 10. 4 mg/dL [place] Electrolyte Panelon 06-17-20 19 Anion gap [Moles/Vol] 13 mmol/L 9 - 17 mmol/L [place] Chloride [Moles/Vol] 103 mmol/L 98 - 10 7 mmol/L [place] CO2 [Moles/Vol] 24 mmol/L 20 - 31 mmol/L [place] Potassium [Moles/Vol] 3.8 mmol/L 3.7 - 5.3 mmol/L [place] Sodium [Moles/Vol] 140 mmol/L 135 - 144 mmol/L [place] Hemoglobin and Hematocrit, B loodon 06-17-2019 Hematocrit (Bld) [Volume fraction] 35.4 % Low 36 - 46 % [place] Hemoglobin (Bld) [Mass/Vol] 12.1 g/dL 12 - 16 g/dL [place] Interpretation and review of laboratory results Abnormal [place] Magnesiumon 06-17-2019 Magnesium [Mass/Vol] 2.3 mg/dL 1.6 - 2 .6 mg/dL [place] Microscopic Urinalysison Amorphous, UA NOT REPORTED None [place], [place] Bacteria, UA 1+ Abnormal None [place], [place] Casts UA NOT REPORTED /LPF [place] Crystals UA NOT REPORTED None /HPF [place] Epithelial Cells UA 2 TO 5 /HPF [place] Interpretation and review of laboratory results Abnormal [place] Mucus, UA NOT REPORTED None [place], [place] Other Observations UA NOT REPORTED NOT REQ. [place] RBC (U) [#/Vol] NOT REPORTED [place], [place] Renal Epithelial, Urine NOT REPORTED 0 /HPF [place], [place] Trichomonas, UA NOT REPORTED None [place], [place] WBC, UA 0 TO 2 0 /HPF [place] Yeast, UA NOT REPORTED None [place], [place] - [place] Phosphoruson 06-17-2019 Phosphate [Mass/Vol] 3.0 mg/dL 2.6 - 4 .5 mg/dL [place] Protein / creatinine ratio, urineon 06-17-2019 Creatinine, Ur 228.2 mg/dL High 28 - 217 mg/dL [place] Interpretation and review of laboratory results Abnormal [place] Protein (U) [Mass/Vol] 18 mg/dL [place], [place] Comment on above: No normal range esta blished. Urine Total Protein Creatinine Ratio 0.08 [place], [place] Sedimentation Rateon 019 Sed Rate 24 mm 0 - 30 mm [place] Urinalysison 06-17-2019 Bilirubin Urine Negative NEGATIVE [place] Color, UA YELLOW YELLOW [place], [place] Glucose, Ur Negative NEGATIVE [place] Interpretation and review of laboratory results Abnormal [place], [place] Ketones Ql (U) Negative NEGATIVE [place] Leukocyte esterase Test strip Ql (U) Negative NEGATIVE [place], [place] Nitrite, Urine Negative NEGATIVE [place], [place] pH, UA 6.0 [place], [place] Protein (U) [Mass/Vol] TRACE Abnormal NEGATIVE [place] Specific [place], UA 1.025 [place], [place] Turbidity UA HAZY Abnormal CLEAR [place] Urinalysis Comments [place] Urine Hgb Negative NEGATIVE [place] Urobilinogen, Urine Normal Normal [place] MR CERVICAL SPINE WITHOUT CO NTRASTon [...] be due to myelomalacia or cord edema. [employer] Workstation ID: [id number] [facility] EXAMINATION: MR CERVICAL SPINE WITHOUT CONTRAST HISTORY: [...] creating probable mild left-sided neural foraminal stenosis. [facility], Rad In [employer] - 02/03/2019 11:02 [...] be due to myelomalacia or cord edema. /[facility] Workstation ID: [id number] [facility] MR CERVICAL SPINE WITHOUT CONTRAST EXAMINATION: MR [...] be due to myelomalacia or cord edema. /[facility] Workstation ID: [id number] Dictated by: RONALD MCCRAY on ThuFebruary 03, 2019 10:34:16 AM EDT Transcribed by: FELICITY DE JESUS on ThuFebruary 03, 2019 10:58:51 AM EDT Finalized by: RONALD MCCRAY on ThuFebruary 03, 2019 10:59:35 AM EDT [facility] Comment on above: Order Comment: Reaso n [...] GROWTH 48 DAYS Report Status FINAL 10/11/2018 [facility] Comment on above: Performed By: #### T ROPI #### [address] [address] Cult,Mycobacteria Specimen Description .SPINE .TISSUE T4 LAMINA Special Requests NOT REPORTED Direct Exam NO ACID FAST BACILLI SEEN (DIRECT SMEAR) Culture NO GROWTH 48 DAYS Report Status FINAL 10/11/2018 [facility] Comment on above: Performed By: #### L ACWB #### [facility] [employer] [address] [place] [id number] Cult,Funguson 09-27-2018 Cult,Fungus Specimen Description .TISSUE EPIDURAL TISSUE Special Requests NOT REPORTED Culture NO GROWTH 34 DAYS Report Status FINAL 09/27/2018 [facility] Comment on above: Performed By: #### L ACWB #### [facility] [employer] [address] [place] [id number] Cult,Fungus Specimen Description .SPINE .TISSUE T4 LAMINA Special Requests NOT REPORTED Culture NO GROWTH 34 DAYS Report Status FINAL 09/27/2018 [facility] Comment on above: Performed By: #### L ACWB #### [facility] [employer] [address] [place] [id number] BUNon 09-23-2018 Urea nitrogen mass conc 20 mg/dL Normal 6- [facility] Comment on above: Performed By: #### 2 [id number] ####OVIDIO [id number] [place] [address] Creatinineon 09-23-2018 Creatinine mass conc 1.3 mg/dL High 0.5-1.1 [facility] Comment on above: Performed By: #### 2 [id number] ####OVIDIO [id number] [place] [address] eGFRon 09-23-2018 eGFR AA 54 mL/min/1.73 m2 Normal [facility] Comment on above: Order Comment: Order added by Discern Expert. Performed By: #### 2 [id number] ####OVIDIO [id number] [place] [address] GFR/1.73 sq M predicted among non-blacks MDRD vol rate/area (S/P/Bld) 45 mL/min/1.73 m2 Normal [facility] Comment on above: Order Comment: Order added by Discern Expert. Performed By: #### 2 [id number] ####OVIDIO [id number] [place] [address] Auto Diffon 09-20-2018 Basophils Auto #/vol (Bld) 0.0 E3/mcL Normal 0.0-0.2 [facility] Comment on above: Order Comment: Order Added by Nicole Expert. Performed By: #### 2 [id number] ####OVIDIO [id number] [place] [address] Basophils/100 WBC Auto (Bld) 1.1 % Normal 0.0-2.0 [facility] Comment on above: Order Comment: Order Added by Discern Expert. Performed By: #### 2 [id number] ####OVIDIO [id number] [place] [address] Eos Absolute 0.0 E3/mcL Normal 0.0-0.7 [facility] Comment on above: Order Comment: Order Added by Nicole Expert. Performed By: #### 2 [id number] ####OVIDIO [id number] [place] [address] Eosinophils/100 WBC Auto (Bld) 0.3 % Normal 0.0-11.0 [facility] Comment on above: Order Comment: Order Added by Discern Expert. Performed By: #### 2 [id number] ####OVIDIOBrock A[address]osEvxSjgg3212 [place] [address] Lymphocytes Auto #/vol (Bld) 1.2 E3/mcL Normal 1.2-3.4 [facility] Comment on above: Order Comment: Order Added by Discern Expert. Performed By: #### 2 [id number] ####OVIDIO [address] [place] [address] Lymphocytes/100 WBC Auto (Bld) 30.6 % Normal 20.0-55.0 [facility] Comment on above: Order Comment: Order Added by Discern Expert. Performed By: #### 2 [id number] ####OVIDIO [address]oyRnes[address] [place] [address] [place] Absolute 0.4 E3/mcL Normal 0.0-0.7 [facility] Comment on above: Order Comment: Order Added by Nicole Expert. Performed By: #### 2 [id number] ####OVIDIO [address] [place] [address] Monocytes/100 WBC Auto (Bld) 10.2 % High 0.0-10.0 [facility] Comment on above: Order Comment: Order Added by Discern Expert. Performed By: #### 2 [id number] ####OVIDIO [address] [place] [address] Neutro Absolute 2.3 E3/mcL Normal 1.4-6.5 [facility] Comment on above: Order Comment: Order Added by Nicole Expert. Performed By: #### 2 [id number] ####OVIDIO [address] [place] [address] Neutro Auto 57.8 % Normal 37.0-75.0 [facility] Comment on above: Order Comment: Order Added by Discern Expert. Performed By: #### 2 [id number] ####OVIDIO [address] [place] [address] CBC w/ Auto Diffon 8 Erythrocyte distribution width Auto Ratio (RBC) 19.9 % High 11.5-14.5 [facility] Comment on above: Performed By: #### 2 [id number] ####OVIDIO [address] [place] [address] Hematocrit Auto Volume Fraction (Bld) 26.5 % Low 36.0-48.0 [facility] Comment on above: Performed By: #### 2 [id number] ####OVIDIO [address]znDbxn7425 [place] [address] Hemoglobin mass conc (Bld) 8.7 g/dL Low 12.0-16.0 [facility] Comment on above: Performed By: #### 2 [id number] ####OVIDIO [address]MbdZmku2926 [place] [address] MCH Auto Entitic mass (RBC) 29.6 pg Normal 27.0-31.0 [facility] Comment on above: Performed By: #### 2 [id number] ####OVIDIO [address]olYyos[address]708 [place] [address] MCHC Auto mass conc (RBC) 32.9 g/dL Low 33.0-37.0 [facility] Comment on above: Performed By: #### 2 [id number] ####OVIDIO [address]irPiyx[address] [place] [address] MCV Auto Entitic volume (RBC) 89.8 fL Normal 78.0-100.0 [facility] Comment on above: Performed By: #### 2 [id number] ####OVIDIO QetRskk2597 [place] [address] Platelet mean volume Auto Entitic volume (Bld) 10.5 fL Normal 7.4-11.0 [facility] Comment on above: Performed By: #### 2 [id number] ####OVIDIO UkrQqlv4745 [place] [address] Platelets Auto #/vol (Bld) 117 E3/mcL Low 130-400 [facility] Comment on above: Performed By: #### 2 [id number] ####OVIDIO ZljQvpp9568 [place] [address] RBC Auto #/vol (Bld) 2.95 E6/mcL Low 3.90-5.40 [facility] Comment on above: Performed By: #### 2 [id number] ####OVIDIO EzyPihq4477 [place] [address] WBC Auto #/vol (Bld) 4.0 E3/mcL Normal 3.6-11.0 [facility] Comment on above: Performed By: #### 2 [id number] ####OVIDIO [id number] [place] [id number] CRPon 09-20-2018 CRP mass conc 0.83 mg/dL Normal 0.00-1.00 [facility] Comment on above: Performed By: #### 2 [id number] ####OVIDIO [id number] [place] [address] Morphon 09-20-2018 Anisocytosis Auto Ql (Bld) 1+ Normal [facility] Comment on above: Order Comment: Order Added by Discern Expert. Performed By: #### 1 [id number] ####OVIDIO [id number] [place] [id number] Hypochromasia 1+ Normal [facility] Comment on above: Order Comment: Order Added by Discern Expert. Performed By: #### 1 [id number] ####OVIDIO [id number] [place] [id number] RBC morphology finding Nom (Bld) SEE MORPHOLOGY Normal [facility] Comment on above: Order Comment: Order Added by Discern Expert. Performed By: #### 1 [id number] ####OVIDIO [id number] [place] [address] Sed Rate Automatedon 018 Sed Rate Automated 15 mm/hr Normal [facility] Comment on above: Result Comment: AGE- SPECIFIC REFERENCE RANGES FOR SEDIMENTATION RATE AUTOMATED REFERENCE RANGE - MM/HR AGE MEN WOMEN 0-2 0-2 - PUBERTY 3-13 3-13 PUBERTY - 50 YRS 0-15 0-20 > 50 YRS 0-20 0-30 Performed By: #### 1 [id number] ####OVIDIO Hematology Manual [id number] [place] [address] zzplt morphon 09-20-2018 Platelet morphology finding Nom (Bld) NORMAL Normal [facility] Comment on above: Performed By: #### 9 [id number] ####OVIDIO [id number] [place] [address] Platelets Auto #/vol (Bld) NORMAL Normal [facility] Comment on above: Performed By: #### 9 [id number] ####OVIDIO [id number] [place] [address] BLOOD UREA NITROGENon 2017 Urea nitrogen mass conc (Bld) 19 mg/dL Normal 7-20 [facility] Comment on above: Performed By: #### A CBC, ESR, BUN, CREAT, CREACT, FX ####Testing performed at [address] [address] C REACTIVE PROTEINon 018 CRP mass conc 18.5 mg/L High 0-10.0 [facility] Comment on above: Performed By: #### A CBC, ESR, BUN, CREAT, CREACT, FX ####Testing performed at [address] [address] CBCon 09-13-2018 ABSOLUTE BAS 0.1 X10 Normal [facility] Comment on above: Performed By: #### A CBC, ESR, BUN, CREAT, CREACT, FX ####Testing performed at [address] [address] ABSOLUTE EOS 0.20 X10 Normal [facility] Comment on above: Performed By: #### A CBC, ESR, BUN, CREAT, CREACT, FX ####Testing performed at [address] [address] ABSOLUTE NEUTROPHIL COUNT 2.5 x10 Normal 1.0-7.0 [facility] Comment on above: Performed By: #### A CBC, ESR, BUN, CREAT, CREACT, FX ####Testing performed at [address] [address] Basophils/100 WBC Auto (Bld) 1.4 % Normal 0.0-2.0 [facility] Comment on above: Performed By: #### A CBC, ESR, BUN, CREAT, CREACT, FX ####Testing performed at [address] [address] DTYPE AUTO DIFF Normal [facility] Comment on above: Performed By: #### A CBC, ESR, BUN, CREAT, CREACT, FX ####Testing performed at [address] [address] Eosinophils/100 WBC Auto (Bld) 3.5 % Normal 0.0-11.0 [facility] Comment on above: Performed By: #### A CBC, ESR, BUN, CREAT, CREACT, FX ####Testing performed at [address] [address] Lymphocytes Auto #/vol (Bld) 1.10 X10 Normal [facility] Comment on above: Performed By: #### A CBC, ESR, BUN, CREAT, CREACT, FX ####Testing performed at [address] [address] Lymphocytes/100 WBC Auto (Bld) 27.0 % Normal 20.0-55.0 [facility] Comment on above: Performed By: #### A CBC, ESR, BUN, CREAT, CREACT, FX ####Testing performed at [address] [address] Monocytes Auto #/vol (Bld) 0.4 X10 Normal [facility] Comment on above: Performed By: #### A CBC, ESR, BUN, CREAT, CREACT, FX ####Testing performed at [address] [address] Monocytes/100 WBC Auto (Bld) 9.4 % Normal 0.0-10.0 [facility] Comment on above: Performed By: #### A CBC, ESR, BUN, CREAT, CREACT, FX ####Testing performed at [address] [address] Neutrophils/100 WBC Auto (Bld) 58.7 % Normal 37.0-75.0 [facility] Comment on above: Performed By: #### A CBC, ESR, BUN, CREAT, CREACT, FX ####Testing performed at [address] [address] Erythrocyte distribution width Auto Ratio (RBC) 17.6 % High 11.5-14.5 [facility] Comment on above: Performed By: #### A CBC, ESR, BUN, CREAT, CREACT, FX ####Testing performed at [address] [address] Hematocrit Auto Volume Fraction (Bld) 26.2 % Low 36.0-48.0 [facility] Comment on above: Performed By: #### A CBC, ESR, BUN, CREAT, CREACT, FX ####[place] [address] Hemoglobin mass conc (Bld) 8.8 g/dL Low 12.0-16.0 [facility] Comment on above: Performed By: #### A CBC, ESR, BUN, CREAT, CREACT, FX ####[place] [address] MCH Auto Entitic mass (RBC) 29.3 pg Normal 26.0-35.0 [facility] Comment on above: Performed By: #### A CBC, ESR, BUN, CREAT, CREACT, FX ####[place] [address] MCHC Auto mass conc (RBC) 33.7 g/dL Normal 27.0-37.0 [facility] Comment on above: Performed By: #### A CBC, ESR, BUN, CREAT, CREACT, FX ####[place] [address] MCV Auto Entitic volume (RBC) 86.9 fL Normal 80.0-100.0 [facility] Comment on above: Performed By: #### A CBC, ESR, BUN, CREAT, CREACT, FX ####[place] [address] Platelet mean volume Auto Entitic volume (Bld) 10.1 fL Normal 7.4-11.0 [facility] Comment on above: Performed By: #### A CBC, ESR, BUN, CREAT, CREACT, FX ####[place] [address] Platelets Auto #/vol (Bld) 130 /cmm Normal 130.0-400.0 [facility] Comment on above: Performed By: #### A CBC, ESR, BUN, CREAT, CREACT, FX ####[place] [address] RBC Auto #/vol (Bld) 3.01 /cmm Low 4.0-5.4 [facility] Comment on above: Performed By: #### A CBC, ESR, BUN, CREAT, CREACT, FX ####[place] [address] WBC Auto #/vol (Bld) 4.2 /cmm Normal 3.6-11.0 [facility] Comment on above: Performed By: #### A CBC, ESR, BUN, CREAT, CREACT, FX ####[place] [address] CREATININE,SERUMon 8 Creatinine mass conc 1.5 mg/dL High 0.52-1.04 [facility] Comment on above: Performed By: #### A CBC, ESR, BUN, CREAT, CREACT, FX ####[place] [address] EST. GFR, 50 ml/min/1.73sq.m [facility] Comment on above: Performed By: #### A CBC, ESR, BUN, CREAT, CREACT, FX ####[place] [address] EST. GFR,Non 41 ml/min/1.73sq.m [facility] Comment on above: Performed By: #### A CBC, ESR, BUN, CREAT, CREACT, FX ####[place] [address] GFR/1.73 sq M predicted among non-blacks MDRD vol rate/area (S/P/Bld) Average GFR for 30-39 years old = 109. [facility] Comment on above: Result Comment: Insurance Examining Clerk vasu Kidney disease, GFR = <60.Kidney failure, GFR = <15.The GFR estimate is not adjusted for extreme body surface area or acute process, nor has it been validated for women or ethnic groups other than and . Performed By: #### A CBC, ESR, BUN, CREAT, CREACT, FX ####[place] [address] ESRon 12-10-2018 ESR Velocity (Bld) 49 mm/h High 0-15 [facility] Comment on above: Performed By: #### A CBC, ESR, BUN, CREAT, CREACT, FX ####Testing performed at [address] [address] FAX REQUESTon 09-13-2018 FAX TO FAX TO DR DEVAN Gutiérrez T [phone] AND TO [facility] AT [phone] [facility] Comment on above: Performed By: #### P HY, BUN, CREAT, FX ####Testing performed at [address] [address] FAX REQUESTon 09-06-2018 FAX TO [phone] [facility] Comment on above: Performed By: #### F X ####Testing performed at [place] [id number] BLOOD UREA NITROGENon 2017 Urea nitrogen mass conc (Bld) 21 mg/dL High 7-20 [facility] Comment on above: Performed By: #### P HY, BUN, CREAT, FX ####Testing performed at [place] [id number] CREATININE,SERUMon 8 Creatinine mass conc 1.4 mg/dL High 0.52-1.04 [facility] Comment on above: Performed By: #### P HY, BUN, CREAT, FX ####Testing performed at [place] [id number] EST. GFR, 54 ml/min/1.73sq.m [facility] Comment on above: Performed By: #### P HY, BUN, CREAT, FX ####Testing performed at [place] [id number] EST. GFR,Non 44 ml/min/1.73sq.m [facility] Comment on above: Performed By: #### P HY, BUN, CREAT, FX ####Testing performed at [place] [id number] GFR/1.73 sq M predicted among non-blacks MDRD vol rate/area (S/P/Bld) Average GFR for 30-39 years old = 109. [facility] Comment on above: Result Comment: Insurance Examining Clerk vasu Kidney disease, GFR = <60.Kidney failure, GFR = <15.The GFR estimate is not adjusted for extreme body surface area or acute process, nor has it been validated for women or ethnic groups other than and . Performed By: #### P HY, BUN, CREAT, FX ####Testing performed at [address] [address] FAX REQUESTon 08-31-2018 FAX TO [phone] [facility] Comment on above: Performed By: #### P HY, BUN, CREAT, FX ####Testing performed at [address] [address] GAL NEW PHYSICIANon 08-31-20 18 [facility] PHYSICIAN DEVAN UP [facility] Comment on above: Performed By: #### P HY, BUN, CREAT, FX ####Testing performed at [address] [address] BUNon 08-27-2018 Urea nitrogen mass conc 24 mg/dL High 03-27 [facility] Comment on above: Performed By: #### 2 [id number] ####OVIDIO [id number] [place] [address] Creatinineon 08-27-2018 Creatinine mass conc 1.6 mg/dL High 0.5-1.1 [facility] Comment on above: Performed By: #### 2 [id number] ####OVIDIO [id number] [place] [address] eGFRon 08-27-2018 eGFR AA 43 mL/min/1.73 m2 [facility] Comment on above: Order Comment: Order added by Nicole Expert. Performed By: #### 1 [id number] ####OVIDIO WozVduc1106 [place] [address] GFR/1.73 sq M predicted among non-blacks MDRD vol rate/area (S/P/Bld) 36 mL/min/1.73 m2 [facility] Comment on above: Order Comment: Order added by Discern Expert. Performed By: #### 1 [id number] ####OVIDIO [id number] [place] [address] Cult,Tissueon 08-26-2018 Cult,Tissue Specimen Description .TISSUE EPIDURAL [...] REPORTED Trimethoprim/Sulfa <=10 SUSCEPTIBLE Vancomycin <=0.5 SUSCEPTIBLE [facility] Comment on above: Performed By: #### L ACWB #### [employer] [address] [place] [address] Cult,Tissue Specimen Description .SPINE .TISSUE T4 [...] REPORTED Trimethoprim/Sulfa <=10 SUSCEPTIBLE Vancomycin <=0.5 SUSCEPTIBLE [facility] Comment on above: Performed By: #### L ACWB #### [employer] [address] [place], [place] [id number] Basic Metabolic Profon 08-25 (cont.) [facility] Comment on above: Result Comment: Aver age GFR for 30-39 years old: 107 mL/min/1.73sq m Chronic Kidney Disease: <60 mL/min/1.73sq m Kidney failure: <15 mL/min/1.73sq m eGFR calculated using average adult body mass. Additional eGFR calculator available at: http://www.Parudi.CloSys/multiple_crcl_2012.htm Performed By: #### L ACWB #### [facility] [address] [place] [address] Anion gap molar conc 14 mmol/L Normal 9-17 [facility] Comment on above: Performed By: #### L ACWB #### [facility] [employer] [address] [place] [address] Calcium mass conc 9.1 mg/dL Normal 8.6-10.4 [facility] Comment on above: Performed By: #### L ACWB #### [facility] [employer] [address] [place] [address] Chloride molar conc 96 mmol/L Low 98-107 [facility] Comment on above: Performed By: #### L ACWB #### [facility] [address] [place] [address] CO2 molar conc 23 mmol/L Normal 20-31 [facility] Comment on above: Performed By: #### L ACWB #### [facility] [employer] [address] [place] [address] Creatinine mass conc 1.52 mg/dL High 0.50-0.90 [facility] Comment on above: Performed By: #### L ACWB #### [facility] [address] [place] [address] GFR, Amer 46 mL/min Low >60 [facility] Comment on above: Performed By: #### L ACWB #### [facility] [employer] [address] [place] [address] GFR,non Amer 38 mL/min Low >60 [facility] Comment on above: Performed By: #### L ACWB #### [facility] [employer] [address] [place] [address] Glucose mass conc 95 mg/dL Normal 70-99 [facility] Comment on above: Performed By: #### L ACWB #### [facility] [employer] [address] [place] [address] Potassium molar conc 4.5 mmol/L Normal 3.7-5.3 [facility] Comment on above: Performed By: #### L ACWB #### [facility] [employer] [address] [place] [address] Sodium molar conc 133 mmol/L Low 135-144 [facility] Comment on above: Performed By: #### L ACWB #### [facility] [employer] [address] [place] [address] Urea nitrogen mass conc 43 mg/dL High 6-20 [facility] Comment on above: Performed By: #### L ACWB #### [facility] [employer] [address] [place] [address] BUN/CRE Ratio NOT REPORTED Normal 9-20 [facility] Comment on above: Performed By: #### L ACWB #### [facility] [employer] [address] [place] [address] Staging: NOT REPORTED Normal [facility] Comment on above: Performed By: #### L ACWB #### [facility] [employer] [address] [place] [address] CBC with Diffon 08-25-2018 Abs. Basophil 0.07 k/uL Normal 0.00-0.20 [facility] Comment on above: Performed By: #### L ACWB #### [facility] [employer] [address] [place] [address] Abs.Imm.Granulocyte 0.08 k/uL Normal 0.00-0.30 [facility] Comment on above: Performed By: #### L ACWB #### [address] [address] Abs.Neutrophil (Seg) 5.77 k/uL Normal 1.50-8.10 [facility] Comment on above: Performed By: #### L ACWB #### [address] [address] Basophils/100 WBC (Bld) 1 % Normal 0-2 [facility] Comment on above: Performed By: #### L ACWB #### [address] [address] Eosinophils #/vol (Bld) 0.12 10*3/uL Normal 0.00-0.44 [facility] Comment on above: Performed By: #### L ACWB #### [address] [address] Eosinophils/100 WBC (Bld) 1 % Normal 1-4 [facility] Comment on above: Performed By: #### L ACWB #### [address] [address] Immature granulocytes #/vol (Bld) 1 % High 0 [facility] Comment on above: Performed By: #### L ACWB #### [address] [address] Lymphocytes #/vol (Bld) 1.83 10*3/uL Normal 1.10-3.70 [facility] Comment on above: Performed By: #### L ACWB #### [address] [address] Lymphocytes/100 WBC (Bld) 21 % Low 24-43 [facility] Comment on above: Performed By: #### L ACWB #### [address] [address] Monocytes #/vol (Bld) 0.92 10*3/uL Normal 0.10-1.20 [facility] Comment on above: Performed By: #### L ACWB #### [address] [address] Monocytes/100 WBC (Bld) 11 % Normal 3-12 [facility] Comment on above: Performed By: #### L ACWB #### [address] [address] Neutrophil (Seg) 66 % High 36-65 [facility] Comment on above: Performed By: #### L ACWB #### [address] [address] Erythrocyte distribution width Ratio (RBC) 14.6 % High 11.8-14.4 [facility] Comment on above: Performed By: #### L ACWB #### [address] [address] Hematocrit Volume Fraction (Bld) 32.6 % Low 36.3-47.1 [facility] Comment on above: Performed By: #### L ACWB #### [address] [address] Hemoglobin mass conc (Bld) 10.0 g/dL Low 11.9-15.1 [facility] Comment on above: Performed By: #### L ACWB #### [address] [address] MCH Entitic mass (RBC) 28.2 pg Normal 25.2-33.5 [facility] Comment on above: Performed By: #### L ACWB #### [address] [address] MCHC mass conc (RBC) 30.7 g/dL Normal 28.4-34.8 [facility] Comment on above: Performed By: #### L ACWB #### [address] [address] MCV Entitic volume (RBC) 91.8 fL Normal 82.6-102.9 [facility] Comment on above: Performed By: #### L ACWB #### [address] [address] NRBC Automated 0.0 per 100 WBC Normal 0.0 [facility] Comment on above: Performed By: #### L ACWB #### [address] [address] Platelet mean volume Entitic volume (Bld) 10.4 fL Normal 8.1-13.5 [facility] Comment on above: Performed By: #### L ACWB #### [address] [address] Platelets #/vol (Bld) 292 10*3/uL Normal 138-453 Me [facility] Comment on above: Performed By: #### L ACWB #### [address] [address] RBC #/vol (Bld) 3.55 10*6/uL Low 3.95-5.11 [facility] Comment on above: Performed By: #### L ACWB #### [facility] [employer] [address] [place] [address] RBC morphology finding Nom (Bld) ANISOCYTOSIS PRESENT Normal [facility] Comment on above: Performed By: #### L ACWB #### [address] [address] WBC #/vol (Bld) 8.8 10*3/uL Normal 3.5-11.3 [facility] Comment on above: Performed By: #### L ACWB #### [address] [address] Auto Diff Performed NOT REPORTED Normal [facility] Comment on above: Performed By: #### L ACWB #### [address] [address] Platelets #/vol (Bld) NOT REPORTED Normal [facility] Comment on above: Performed By: #### L ACWB #### [address] [address] WBC Morphology NOT REPORTED Normal [facility] Comment on above: Performed By: #### L ACWB #### [address] [address] Fungi,Direct Examon 08-25-20 18 Fungi,Direct Exam Specimen Description .SPINE .TISSUE T4 LAMINA Special Requests NOT REPORTED Direct Exam NO FUNGAL ELEMENTS SEEN Report Status FINAL 08/25/2018 Normal [facility] Comment on above: Performed By: #### L ACWB #### [address] [address] Magnesiumon 08-25-2018 Magnesium mass conc 2.4 mg/dL Normal 1.6-2.6 [facility] Comment on above: Performed By: #### L ACWB #### [address] [address] Procalcitoninon 08-25-2018 Protein mass conc 0.13 ng/mL High <0.09 [facility] Comment on above: Result Comment: Suspected Sepsis: [...] entered into the Change in Procalcitonin Calculator (www.znpwve-ktq-hrzdmyyjbi.CloSys) to determine the patient's Mortality Risk Prognosis Performed By: #### L ACWB #### [address] [id number] Cult,Aerobe/Anaerobeon 08-24 Cult,Aerobe/Anaerobe Specimen Descriptio n .SPINE Special Requests NOT REPORTED Direct Exam DUPLICATE ORDER SEE RESULTS FOR TISSUE CULTURE Culture NOT REPORTED Report Status FINAL 08/24/2018 [facility] Comment on above: Performed By: #### S PAG #### [address] [id number] Cult,Aerobe/Anaerobe Specimen Descriptio n .SPINE Special Requests NOT REPORTED Direct Exam DUPLICATE ORDER SEE RESUULTS FOR TISSUE CULTURE Culture NOT REPORTED Report Status FINAL 08/24/2018 [facility] Comment on above: Performed By: #### S PAG #### [address] [id number] FLUORO FOR SURGICAL PROCEDUR ESon 08-24-2018 FLUORO FOR SURGICAL PROCEDURES Radiology exam is complete. No Radiologist dictation. Please follow up with ordering provider. Final result Normal [facility] OPERATIVE REPORTon 8 OPERATIVE REPORT [address] [address] OPERATIVE REPORT PATIENT NAME: CELINA GASPAR : 1980 MED REC NO: [id number] ROOM: 0431 ACCOUNT NO: [id number] ADMIT DATE: 08/15/2018 PROVIDER: Lita Mccray MD DATE OF PROCEDURE: 08/23/2018 SURGEON: Lita Mccray MD HYBRID POWERTRAIN DEVELOPMENT ENGINEER: Eliel Larios DO PREOPERATIVE DIAGNOSIS: Epidural abscess, [...] satisfactory condition. LITA MCCRAY MD CAT/[id number] Doc#: [id number] CC: Lita Mccray MD Normal [facility] Procalcitoninon 08-24-2018 Protein mass conc 0.16 ng/mL High <0.09 [facility] Comment on above: Result Comment: Suspected Sepsis: [...] entered into the Change in Procalcitonin Calculator (www.zuoiwn-lqq-bynfzgwtyw.com) to determine the patient's Mortality Risk Prognosis Performed By: #### S PAG #### [facility] [employer] [address] [place] [address] Basic Metab w/rfx MGon 08-23 (cont.) Normal [facility] Comment on above: Result Comment: Aver age GFR for 30-39 years old: 107 mL/min/1.73sq m Chronic Kidney Disease: <60 mL/min/1.73sq m Kidney failure: <15 mL/min/1.73sq m eGFR calculated using average adult body mass. Additional eGFR calculator available at: http://www.Parudi.CloSys/multiple_crcl_2011.htm Performed By: #### S PAG #### [facility] [employer] [address] [place] [address] Anion gap molar conc 14 mmol/L Normal 9-17 [facility] Comment on above: Performed By: #### S PAG #### [facility] [employer] [address] [place] [address] Calcium mass conc 9.9 mg/dL Normal 8.6-10.4 [facility] Comment on above: Performed By: #### S PAG #### [facility] [employer] [address] [place] [address] Chloride molar conc 99 mmol/L Normal 98-107 [facility] Comment on above: Performed By: #### S PAG #### [facility] [employer] [address] [place] [address] CO2 molar conc 26 mmol/L Normal 20-31 [facility] Comment on above: Performed By: #### S PAG #### [facility] [employer] [address] [place] [address] Creatinine mass conc 1.42 mg/dL High 0.50-0.90 [facility] Comment on above: Performed By: #### S PAG #### [facility] [employer] [address] [place] [address] GFR, Amer 50 mL/min Low >60 [facility] Comment on above: Performed By: #### S PAG #### [facility] [employer] [address] [place] [address] GFR,non Amer 41 mL/min Low >60 [facility] Comment on above: Performed By: #### S PAG #### [facility] [employer] [address] [place] [address] Glucose mass conc 95 mg/dL Normal 70-99 [facility] Comment on above: Performed By: #### S PAG #### [facility] [employer] [address] [place] [address] Potassium molar conc 4.9 mmol/L Normal 3.7-5.3 [facility] Comment on above: Result Comment: SPEC IMEN SLIGHTLY HEMOLYZED, RESULTS MAY BE ADVERSELY AFFECTED. Performed By: #### S PAG #### [facility] [employer] [address] [place] [address]199 Sodium molar conc 139 mmol/L Normal 135-144 [facility] Comment on above: Performed By: #### S PAG #### [facility] [employer] [address] [place] [address] 99290 Urea nitrogen mass conc 31 mg/dL High 6-20 [facility] Comment on above: Performed By: #### S PAG #### [facility] [employer] [address] [place] [address] 50008 BUN/CRE Ratio NOT REPORTED Normal 9-20 [facility] Comment on above: Performed By: #### S PAG #### [facility] [employer] [address] [place] [address] 88175 Staging: NOT REPORTED Normal [facility] Comment on above: Performed By: #### S PAG #### [facility] [employer] [address] [place] [address] 89122 CBC with Diffon 08-23-2018 Abs. Basophil 0.06 k/uL Normal 0.00-0.20 [facility] Comment on above: Performed By: #### S PAG #### [address] [address] Abs.Imm.Granulocyte 0.22 k/uL Normal 0.00-0.30 [facility] Comment on above: Performed By: #### S PAG #### [address] [address] Abs.Neutrophil (Seg) 4.43 k/uL Normal 1.50-8.10 [facility] Comment on above: Performed By: #### S PAG #### [address] 79383 Basophils/100 WBC (Bld) 1 % Normal 0-2 [facility] Comment on above: Performed By: #### S PAG #### [address] 29099 Eosinophils #/vol (Bld) 0.15 10*3/uL Normal 0.00-0.44 [facility] Comment on above: Performed By: #### S PAG #### [address] 90984 Eosinophils/100 WBC (Bld) 2 % Normal 1-4 [facility] Comment on above: Performed By: #### S PAG #### [address] 58325 Erythrocyte distribution width Ratio (RBC) 14.4 % Normal 11.8-14.4 [facility] Comment on above: Performed By: #### S PAG #### [address] 20168 Hematocrit Volume Fraction (Bld) 33.2 % Low 36.3-47.1 [facility] Comment on above: Performed By: #### S PAG #### [address] 70618 Hemoglobin mass conc (Bld) 10.4 g/dL Low 11.9-15.1 [facility] Comment on above: Performed By: #### S PAG #### [address] 85852 Immature granulocytes #/vol (Bld) 3 % High 0 [facility] Comment on above: Performed By: #### S PAG #### [address] 82316 Lymphocytes #/vol (Bld) 2.22 10*3/uL Normal 1.10-3.70 [facility] Comment on above: Performed By: #### S PAG #### [address] 95185 Lymphocytes/100 WBC (Bld) 29 % Normal 24-43 [facility] Comment on above: Performed By: #### S PAG #### [address] 55405 MCH Entitic mass (RBC) 27.7 pg Normal 25.2-33.5 [facility] Comment on above: Performed By: #### S PAG #### [address] 24142 MCHC mass conc (RBC) 31.3 g/dL Normal 28.4-34.8 [facility] Comment on above: Performed By: #### S PAG #### [address] 14669 MCV Entitic volume (RBC) 88.3 fL Normal 82.6-102.9 [facility] Comment on above: Performed By: #### S PAG #### [address] [address] Monocytes #/vol (Bld) 0.63 10*3/uL Normal 0.10-1.20 [facility] Comment on above: Performed By: #### S PAG #### [facility] [employer] [address] [place] [address] 16725 Monocytes/100 WBC (Bld) 8 % Normal 3-12 [facility] Comment on above: Performed By: #### S PAG #### [facility] [employer] [address] [place] [address] 67631 Neutrophil (Seg) 57 % Normal 36-65 [facility] Comment on above: Performed By: #### S PAG #### [address] [address]84 NRBC Automated 0.0 per 100 WBC Normal 0.0 [facility] Comment on above: Performed By: #### S PAG #### [address] 30790 Platelets #/vol (Bld) See Reflexed IPF Result Normal 138-453 [facility] Comment on above: Performed By: #### S PAG #### [facility] [employer] [address] [place] [address] 39195 RBC #/vol (Bld) 3.76 10*6/uL Low 3.95-5.11 [facility] Comment on above: Performed By: #### S PAG #### [facility] [employer] [address] [place] [address] 75488 WBC #/vol (Bld) 7.7 10*3/uL Normal 3.5-11.3 [facility] Comment on above: Performed By: #### S PAG #### [address] 60221 Auto Diff Performed NOT REPORTED Normal [facility] Comment on above: Performed By: #### S PAG #### [address] [address]128 Platelet mean volume Entitic volume (Bld) NOT REPORTED Normal 8.1-13.5 [facility] Comment on above: Performed By: #### S PAG #### [address] 74651 Platelets #/vol (Bld) NOT REPORTED Normal [facility] Comment on above: Performed By: #### S PAG #### [address] 85951 RBC morphology finding Nom (Bld) NOT REPORTED Normal [facility] Comment on above: Performed By: #### S PAG #### [address] 53625 WBC Morphology NOT REPORTED Normal [facility] Comment on above: Performed By: #### S PAG #### [address] [address]507 Cult,Bloodon 08-23-2018 Cult,Blood Specimen Description .BLOOD Special Requests L AC 6ML Culture NO GROWTH 6 DAYS Report Status FINAL 08/23/2018 [facility] Comment on above: Performed By: #### S PAG #### [address] [address]678 Cult,Blood Specimen Description .BLOOD Special Requests L FOREARM 6ML Culture NO GROWTH 6 DAYS Report Status FINAL 08/23/2018 [facility] Comment on above: Performed By: #### S PAG #### [address] 86056 PLT, Immature Fract.on 08-23 Platelet, Fluoresc. 113 k/uL Low 138-453 [facility] Comment on above: Performed By: #### S PAG #### [address] [address]497 PLT, Immature Fract. 3.7 % Normal 1.1-10.3 [facility] Comment on above: Performed By: #### S PAG #### [address] 21687 CBC with Diffon 08-22-2018 Abs. Basophil 0.00 k/uL Normal 0.0-0.2 [facility] Comment on above: Performed By: #### U LAG #### [address] 52572 Abs.Imm.Granulocyte 0.30 k/uL Normal 0.00-0.30 [facility] Comment on above: Performed By: #### U LAG #### [address] 03408 Abs.Neutrophil (Seg) 4.87 k/uL Normal 1.8-7.7 [facility] Comment on above: Performed By: #### U LAG #### [address] 90319 Basophils/100 WBC (Bld) 0 % Normal 0-2 [facility] Comment on above: Performed By: #### U LAG #### [address] 28169 Eosinophils #/vol (Bld) 0.00 10*3/uL Normal 0.0-0.4 [facility] Comment on above: Performed By: #### U LAG #### [address] 49084 Eosinophils/100 WBC (Bld) 0 % Low 1-4 [facility] Comment on above: Performed By: #### U LAG #### [address] 05223 Immature granulocytes #/vol (Bld) 4 % High 0 [facility] Comment on above: Performed By: #### U LAG #### [address] [address]33 Lymphocytes #/vol (Bld) 1.88 10*3/uL Normal 1.0-4.8 [facility] Comment on above: Performed By: #### U LAG #### [address] 70286 Lymphocytes/100 WBC (Bld) 25 % Normal 24-44 [facility] Comment on above: Performed By: #### U LAG #### [address] 53734 Monocytes #/vol (Bld) 0.45 10*3/uL Normal 0.1-0.8 [facility] Comment on above: Performed By: #### U LAG #### [address] 76569 Monocytes/100 WBC (Bld) 6 % Normal 1-7 [facility] Comment on above: Performed By: #### U LAG #### [address] 75740 Morphology Interp Rehan (Bld) ANISOCYTOSIS PRESENT Normal [facility] Comment on above: Performed By: #### U LAG #### [address] 27866 Neutrophil (Seg) 65 % Normal 36-66 [facility] Comment on above: Performed By: #### U LAG #### [address] [address]79 Erythrocyte distribution width Ratio (RBC) 14.5 % High 11.8-14.4 [facility] Comment on above: Performed By: #### U LAG #### [address] 78231 Hematocrit Volume Fraction (Bld) 38.1 % Normal 36.3-47.1 [facility] Comment on above: Performed By: #### U LAG #### [address] 21685 Hemoglobin mass conc (Bld) 11.5 g/dL Low 11.9-15.1 [facility] Comment on above: Performed By: #### U LAG #### [address] 04381 MCH Entitic mass (RBC) 28.3 pg Normal 25.2-33.5 [facility] Comment on above: Performed By: #### U LAG #### [address] 48861 MCHC mass conc (RBC) 30.2 g/dL Normal 28.4-34.8 [facility] Comment on above: Performed By: #### U LAG #### [address] 08583 MCV Entitic volume (RBC) 93.6 fL Normal 82.6-102.9 [facility] Comment on above: Performed By: #### U LAG #### [address] [address]87 NRBC Automated 0.0 per 100 WBC Normal 0.0 [facility] Comment on above: Performed By: #### U LAG #### [address] 00116 Platelet mean volume Entitic volume (Bld) 10.7 fL Normal 8.1-13.5 [facility] Comment on above: Performed By: #### U LAG #### [address] [address]38 Platelets #/vol (Bld) 265 10*3/uL Normal 138-453 [facility] Comment on above: Performed By: #### U LAG #### [address] 05875 RBC #/vol (Bld) 4.07 10*6/uL Normal 3.95-5.11 [facility] Comment on above: Performed By: #### U LAG #### [address] 75928 WBC #/vol (Bld) 7.5 10*3/uL Normal 3.5-11.3 [facility] Comment on above: Performed By: #### U LAG #### [address] 08840 Auto Diff Performed NOT REPORTED Normal [facility] Comment on above: Performed By: #### U LAG #### [address] 83624 Platelets #/vol (Bld) NOT REPORTED Normal [facility] Comment on above: Performed By: #### U LAG #### [facility] [employer] [address] [place] [address] 19652 RBC morphology finding Nom (Bld) NOT REPORTED Normal [facility] Comment on above: Performed By: #### U LAG #### [facility] [employer] [address] [place] [address] 83947 WBC Morphology NOT REPORTED Normal [facility] Comment on above: Performed By: #### U LAG #### [address] [address] Comp Metabolic Pr/rfx MGon 1 10-22-2017 Albumin mass conc 3.2 g/dL Low 3.5-5.2 [facility] Comment on above: Performed By: #### U LAG #### [facility] [employer] [address] [place] [address] 05370 Albumin/Globulin mass ratio 0.8 {ratio} Low 1.0-2.5 [facility] Comment on above: Performed By: #### U LAG #### [facility] [employer] [facility] [place] [address] Alkaline Phos 90 U/L Normal 35-104 [facility] Comment on above: Performed By: #### U LAG #### [facility] [employer] [facility] [place] [address] ALT enzyme act/vol 18 U/L Normal 5-33 [facility] Comment on above: Performed By: #### U LAG #### [facility] [employer] [address] [place] [address] 17236 AST enzyme act/vol 16 U/L Normal <32 [facility] Comment on above: Performed By: #### U LAG #### [facility] [employer] [address] [place] [address] 48677 Protein mass conc 7.0 g/dL Normal 6.4-8.3 [facility] Comment on above: Performed By: #### U LAG #### [address] [address] (cont.) Normal [facility] Comment on above: Result Comment: Aver age GFR for 30-39 years old: 107 mL/min/1.73sq m Chronic Kidney Disease: <60 mL/min/1.73sq m Kidney failure: <15 mL/min/1.73sq m eGFR calculated using average adult body mass. Additional eGFR calculator available at: http://[email or web address].CloSys/multiple_crcl_2012.htm Performed By: #### U LAG #### [address] 6[address] Anion gap molar conc 15 mmol/L Normal 9-17 [facility] Comment on above: Performed By: #### U LAG #### [facility] [employer] [facility] [place] [address] Bilirubin Ql (U) 0.34 mg/dL Normal 0.3-1.2 [facility] Comment on above: Performed By: #### U LAG #### [facility] [address] [place] [address] 82433 Calcium mass conc 9.7 mg/dL Normal 8.6-10.4 [facility] Comment on above: Performed By: #### U LAG #### [employer] [address] [place] [address] 62606 Chloride molar conc 100 mmol/L Normal 98-107 [facility] Comment on above: Performed By: #### U LAG #### [facility] [employer] [address] [place] [address] 15240 CO2 molar conc 24 mmol/L Normal 20-31 [facility] Comment on above: Performed By: #### U LAG #### [facility] [address] [place] [address] 92525 Creatinine mass conc 1.02 mg/dL High 0.50-0.90 [facility] Comment on above: Performed By: #### U LAG #### [employer] [address] [place] [address] 14573 GFR, Amer >60 Normal >60 [facility] Comment on above: Performed By: #### U LAG #### [employer] [address] [place] [address] 48113 GFR,non Amer >60 Normal >60 [facility] Comment on above: Performed By: #### U LAG #### [employer] [address] [place] [address] 44737 Glucose mass conc 101 mg/dL High 70-99 [facility] Comment on above: Performed By: #### U LAG #### [facility] [address] [place] [address] 51683 Potassium molar conc 4.5 mmol/L Normal 3.7-5.3 [facility] Comment on above: Performed By: #### U LAG #### [facility] [employer] [address] [place] [address] 13764 Sodium molar conc 139 mmol/L Normal 135-144 [facility] Comment on above: Performed By: #### U LAG #### [facility] [employer] [address] [place] [address] 28663 Urea nitrogen mass conc 19 mg/dL Normal - [facility] Comment on above: Performed By: #### U LAG #### [facility] [employer] [address] [place] [address] 96773 BUN/CRE Ratio NOT REPORTED Normal 06-24 [facility] Comment on above: Performed By: #### U LAG #### [facility] [employer] [address] [place] [address] 28954 Staging: NOT REPORTED Normal [facility] Comment on above: Performed By: #### U LAG #### [facility] [employer] [address] [place] [address] 70772 Magnesiumon 08-22-2018 Magnesium mass conc 2.4 mg/dL Normal 1.6-2.6 [facility] Comment on above: Performed By: #### U LAG #### [facility] [employer] [address] [place] [address] 54582 Vancomycin Troughon 08-22-20 18 Vancomycin Trough 20.2 ug/mL Critically high 10.0-20.0 [facility] Comment on above: Result Comment: High er trough serum vancomycin concentrations of 15-20 ug/mL are recommended for complicated infections such as bacteremia, endocarditis, osteomyelitis, meningitis, and hospital acquired pneumonia. ADDED ON Performed By: #### U LAG #### [facility] [employer] [address] [place] [address] 14813 Date last dose, NOT REPORTED Normal [facility] Comment on above: Performed By: #### U LAG #### [facility] [employer] [address] [place] [address] 88422 Dose amount, NOT REPORTED Normal [facility] Comment on above: Performed By: #### U LAG #### [address] [address] Time last dose, NOT REPORTED Normal [facility] Comment on above: Performed By: #### U LAG #### [address] [address]62 CBC with Diffon 08-21-2018 Abs. Basophil 0.08 k/uL Normal 0.00-0.20 [facility] Comment on above: Performed By: #### U LAG #### [address] 11552 Abs.Imm.Granulocyte 0.50 k/uL High 0.00-0.30 [facility] Comment on above: Performed By: #### U LAG #### [address] [address] Abs.Neutrophil (Seg) 4.73 k/uL Normal 1.50-8.10 [facility] Comment on above: Performed By: #### U LAG #### [address] 89030 Basophils/100 WBC (Bld) 1 % Normal 0-2 [facility] Comment on above: Performed By: #### U LAG #### [address] 82909 Eosinophils #/vol (Bld) 0.17 10*3/uL Normal 0.00-0.44 [facility] Comment on above: Performed By: #### U LAG #### [address] 26263 Eosinophils/100 WBC (Bld) 2 % Normal 1-4 [facility] Comment on above: Performed By: #### U LAG #### [address] 5[address] Immature granulocytes #/vol (Bld) 6 % High 0 [facility] Comment on above: Performed By: #### U LAG #### [address] [address]93 Lymphocytes #/vol (Bld) 2.24 10*3/uL Normal 1.10-3.70 [facility] Comment on above: Performed By: #### U LAG #### [address] 24546 Lymphocytes/100 WBC (Bld) 27 % Normal 24-43 [facility] Comment on above: Performed By: #### U LAG #### [address] [address]145 Monocytes #/vol (Bld) 0.58 10*3/uL Normal 0.10-1.20 [facility] Comment on above: Performed By: #### U LAG #### [address] 18621 Monocytes/100 WBC (Bld) 7 % Normal 3-12 [facility] Comment on above: Performed By: #### U LAG #### [address] [address]87 Morphology Interp Rehan (Bld) ANISOCYTOSIS PRESENT Normal [facility] Comment on above: Performed By: #### U LAG #### [address] 95658 Neutrophil (Seg) 57 % Normal 36-65 [facility] Comment on above: Performed By: #### U LAG #### [address] 03367 Erythrocyte distribution width Ratio (RBC) 14.6 % High 11.8-14.4 [facility] Comment on above: Performed By: #### U LAG #### [address] 23989 Hematocrit Volume Fraction (Bld) 38.5 % Normal 36.3-47.1 [facility] Comment on above: Performed By: #### U LAG #### [address] [address]95 Hemoglobin mass conc (Bld) 11.5 g/dL Low 11.9-15.1 [facility] Comment on above: Performed By: #### U LAG #### [address] 03297 MCH Entitic mass (RBC) 28.2 pg Normal 25.2-33.5 [facility] Comment on above: Performed By: #### U LAG #### [address] [address]36 MCHC mass conc (RBC) 29.9 g/dL Normal 28.4-34.8 [facility] Comment on above: Performed By: #### U LAG #### [address] 28270 MCV Entitic volume (RBC) 94.4 fL Normal 82.6-102.9 [facility] Comment on above: Performed By: #### U LAG #### [address] 35761 NRBC Automated 0.0 per 100 WBC Normal 0.0 [facility] Comment on above: Performed By: #### U LAG #### [address] 87598 Platelet mean volume Entitic volume (Bld) 10.5 fL Normal 8.1-13.5 [facility] Comment on above: Performed By: #### U LAG #### [address] [place] [address] Platelets #/vol (Bld) 264 10*3/uL Normal 138-453 [facility] Comment on above: Performed By: #### U LAG #### [address] 9[address]20 RBC #/vol (Bld) 4.08 10*6/uL Normal 3.95-5.11 [facility] Comment on above: Performed By: #### U LAG #### [facility] [employer] [address] [place] [address] 91998 WBC #/vol (Bld) 8.3 10*3/uL Normal 3.5-11.3 [facility] Comment on above: Performed By: #### U LAG #### [address] [address]387 Auto Diff Performed NOT REPORTED Normal [facility] Comment on above: Performed By: #### U LAG #### [facility] [employer] [address] [place] [address] 25151 Platelets #/vol (Bld) NOT REPORTED Normal [facility] Comment on above: Performed By: #### U LAG #### [facility] [employer] [address] [place] [address] 25453 RBC morphology finding Nom (Bld) NOT REPORTED Normal [facility] Comment on above: Performed By: #### U LAG #### [facility] [employer] [address] [place] [address] 67653 WBC Morphology NOT REPORTED Normal [facility] Comment on above: Performed By: #### U LAG #### [address] [address] Comp Metabolic Pr/rfx MGon 1 10-21-2017 (cont.) Normal [facility] Comment on above: Result Comment: Aver age GFR for 30-39 years old: 107 mL/min/1.73sq m Chronic Kidney Disease: <60 mL/min/1.73sq m Kidney failure: <15 mL/min/1.73sq m eGFR calculated using average adult body mass. Additional eGFR calculator available at: http://[email or web address]/multiple_crcl_2012.htm Performed By: #### U LAG #### [facility] [address] [place] [address] 38001 Albumin mass conc 2.9 g/dL Low 3.5-5.2 [facility] Comment on above: Performed By: #### U LAG #### [facility] [employer] [address] [place] [address] 24863 Albumin/Globulin mass ratio 0.7 {ratio} Low 1.0-2.5 [facility] Comment on above: Performed By: #### U LAG #### [facility] [employer] [address] [place] [address] 70230 Alkaline Phos 98 U/L Normal 35-104 [facility] Comment on above: Performed By: #### U LAG #### [facility] [employer] [address] [place] [address] 90930 ALT enzyme act/vol 19 U/L Normal 5-33 [facility] Comment on above: Performed By: #### U LAG #### [facility] [employer] [address] [place] [address] 14954 Anion gap molar conc 14 mmol/L Normal 9-17 [facility] Comment on above: Performed By: #### U LAG #### [facility] [employer] [address] [place] [address] 02984 AST enzyme act/vol 21 U/L Normal <32 [facility] Comment on above: Performed By: #### U LAG #### [facility] [employer] [address] [place] [address] 78783 Bilirubin Ql (U) 0.32 mg/dL Normal 0.3-1.2 [facility] Comment on above: Performed By: #### U LAG #### [employer] [address] [place] [address] 10380 Calcium mass conc 9.1 mg/dL Normal 8.6-10.4 [facility] Comment on above: Performed By: #### U LAG #### [employer] [address] [place] [address] 62294 Chloride molar conc 102 mmol/L Normal 98-107 [facility] Comment on above: Performed By: #### U LAG #### [facility] [employer] [address] [place] [address] 34399 CO2 molar conc 23 mmol/L Normal 20-31 [facility] Comment on above: Performed By: #### U LAG #### [facility] [address] [place] [address] 35949 Creatinine mass conc 0.90 mg/dL Normal 0.50-0.90 [facility] Comment on above: Performed By: #### U LAG #### [employer] [address] [place] [address] 87364 GFR, Amer >60 Normal >60 [facility] Comment on above: Performed By: #### U LAG #### [employer] [address] [place] [address] 50504 GFR,non Amer >60 Normal >60 [facility] Comment on above: Performed By: #### U LAG #### [employer] [address] [place] [address] 43656 Glucose mass conc 108 mg/dL High 70-99 [facility] Comment on above: Performed By: #### U LAG #### [employer] [address] [place] [address] 46318 Potassium molar conc 4.6 mmol/L Normal 3.7-5.3 [facility] Comment on above: Performed By: #### U LAG #### [employer] [facility] [place] [address] Protein mass conc 6.9 g/dL Normal 6.4-8.3 [facility] Comment on above: Performed By: #### U LAG #### [facility] [address] [place] [address] 17560 Sodium molar conc 139 mmol/L Normal 135-144 [facility] Comment on above: Performed By: #### U LAG #### [employer] [address] [place] [address] 09056 Urea nitrogen mass conc 17 mg/dL Normal - [facility] Comment on above: Performed By: #### U LAG #### [employer] [address] [place] [address] 37140 BUN/CRE Ratio NOT REPORTED Normal 06-24 [facility] Comment on above: Performed By: #### U LAG #### [employer] [address] [place] [address] 61103 Staging: NOT REPORTED Normal [facility] Comment on above: Performed By: #### U LAG #### [employer] [address] [place] [address] 36819 Cult,Bloodon 08-21-2018 Cult,Blood Specimen Description .BLOOD Special Requests L AC 20ML Culture POSITIVE Blood Culture CALLED TO MIS Medina [phone] DIRECT GRAM STAIN FROM BOTTLE: GRAM POSITIVE COCCI IN CLUSTERS METHICILLIN RESISTANT STAPHYLOCOCCUS AUREUS For susceptibility, refer to previous culture. Report Status FINAL 08/21/2018 Normal [facility] Comment on above: Performed By: #### U LAG #### [employer] [address] [place] [address] 00335 MRI FOOT LEFT W WO CONTRASTo n [...] Murali Goff MD 08/21/18 Final result Normal [facility] Magnesiumon 08-21-2018 Magnesium mass conc 2.4 mg/dL Normal 1.6-2.6 [facility] Comment on above: Performed By: #### U LAG #### [facility] [employer] [address] [place] [address] 85119 Procalcitoninon 08-21-2018 Protein mass conc 0.27 ng/mL High <0.09 [facility] Comment on above: Result Comment: Suspected Sepsis: [...] entered into the Change in Procalcitonin Calculator (www.ocnhzu-cjq-ugstcrdyzr.CloSys) to determine the patient's Mortality Risk Prognosis Performed By: #### U LAG #### [facility] [address] [place] [address] 01332 C-Reactive Proteinon 018 CRP mass conc 50.4 mg/L High 0.0-5.0 [facility] Comment on above: Performed By: #### L ACDS, TROPI, PRCAL, MYCM #### [employer] [address] [place] [address] 90752 CBC with Diffon 08-20-2018 Abs. Basophil 0.08 k/uL Normal 0.0-0.2 [facility] Comment on above: Performed By: #### L ACDS, TROPI, PRCAL, MYCM #### [employer] [address] [place] [address] 92353 Abs.Imm.Granulocyte 0.42 k/uL High 0.00-0.30 [facility] Comment on above: Performed By: #### L ACDS, TROPI, PRCAL, MYCM #### [address] [address] Abs.Neutrophil (Seg) 4.57 k/uL Normal 1.8-7.7 [facility] Comment on above: Performed By: #### L ACDS, TROPI, PRCAL, MYCM #### [address] 764[address] Basophils/100 WBC (Bld) 1 % Normal 0-2 [facility] Comment on above: Performed By: #### L ACDS, TROPI, PRCAL, MYCM #### [place] [address] Eosinophils #/vol (Bld) 0.25 10*3/uL Normal 0.0-0.4 [facility] Comment on above: Performed By: #### L ACDS, TROPI, PRCAL, MYCM #### [place] [address] Eosinophils/100 WBC (Bld) 3 % Normal 1-4 [facility] Comment on above: Performed By: #### L ACDS, TROPI, PRCAL, MYCM #### [address] [address] Immature granulocytes #/vol (Bld) 5 % High 0 [facility] Comment on above: Performed By: #### L ACDS, TROPI, PRCAL, MYCM #### [address] 835[address] Lymphocytes #/vol (Bld) 2.32 10*3/uL Normal 1.0-4.8 [facility] Comment on above: Performed By: #### L ACDS, TROPI, PRCAL, MYCM #### [address] 399[address] Lymphocytes/100 WBC (Bld) 28 % Normal 24-44 [facility] Comment on above: Performed By: #### L ACDS, TROPI, PRCAL, MYCM #### [address] [address] Monocytes #/vol (Bld) 0.66 10*3/uL Normal 0.1-0.8 [facility] Comment on above: Performed By: #### L ACDS, TROPI, PRCAL, MYCM #### [address] [address] Monocytes/100 WBC (Bld) 8 % High 1-7 [facility] Comment on above: Performed By: #### L ACDS, TROPI, PRCAL, MYCM #### [address] [address] Morphology Interp Rehan (Bld) ANISOCYTOSIS PRESENT Normal [facility] Comment on above: Performed By: #### L ACDS, TROPI, PRCAL, MYCM #### [address] 07499 Neutrophil (Seg) 55 % Normal 36-66 [facility] Comment on above: Performed By: #### L ACDS, TROPI, PRCAL, MYCM #### [address] 815[address] Erythrocyte distribution width Ratio (RBC) 14.6 % High 11.8-14.4 [facility] Comment on above: Performed By: #### L ACDS, TROPI, PRCAL, MYCM #### [facility] [employer] [address] [place] [address] 71291 Hematocrit Volume Fraction (Bld) 33.5 % Low 36.3-47.1 [facility] Comment on above: Performed By: #### L ACDS, TROPI, PRCAL, MYCM #### [facility] [employer] [address] [place] [address] 64661 Hemoglobin mass conc (Bld) 10.2 g/dL Low 11.9-15.1 [facility] Comment on above: Performed By: #### L ACDS, TROPI, PRCAL, MYCM #### [facility] [employer] [address] [place] [address] 23955 MCH Entitic mass (RBC) 27.9 pg Normal 25.2-33.5 [facility] Comment on above: Performed By: #### L ACDS, TROPI, PRCAL, MYCM #### [facility] [employer] [address] [place] [address] 88146 MCHC mass conc (RBC) 30.4 g/dL Normal 28.4-34.8 [facility] Comment on above: Performed By: #### L ACDS, TROPI, PRCAL, MYCM #### [facility] [employer] [address] [place] [address] 45545 MCV Entitic volume (RBC) 91.5 fL Normal 82.6-102.9 [facility] Comment on above: Performed By: #### L ACDS, TROPI, PRCAL, MYCM #### [address] [address] NRBC Automated 0.0 per 100 WBC Normal 0.0 [facility] Comment on above: Performed By: #### L ACDS, TROPI, PRCAL, MYCM #### [facility] [employer] [address] [place] [address] 24433 Platelet mean volume Entitic volume (Bld) 11.0 fL Normal 8.1-13.5 [facility] Comment on above: Performed By: #### L ACDS, TROPI, PRCAL, MYCM #### [facility] [employer] [address] [place] [address] 85409 Platelets #/vol (Bld) 211 10*3/uL Normal 138-453 [facility] Comment on above: Performed By: #### L ACDS, TROPI, PRCAL, MYCM #### [facility] [employer] [address] [place] [address] 90245 RBC #/vol (Bld) 3.66 10*6/uL Low 3.95-5.11 [facility] Comment on above: Performed By: #### L ACDS, TROPI, PRCAL, MYCM #### [address] [address] WBC #/vol (Bld) 8.3 10*3/uL Normal 3.5-11.3 [facility] Comment on above: Performed By: #### L ACDS, TROPI, PRCAL, MYCM #### [facility] [employer] [address] [place] [address] 29058 Auto Diff Performed NOT REPORTED Normal [facility] Comment on above: Performed By: #### L ACDS, TROPI, PRCAL, MYCM #### [address] [address] Platelets #/vol (Bld) NOT REPORTED Normal [facility] Comment on above: Performed By: #### L ACDS, TROPI, PRCAL, MYCM #### [facility] [employer] [address] [place] [address] 75812 RBC morphology finding Nom (Bld) NOT REPORTED Normal [facility] Comment on above: Performed By: #### L ACDS, TROPI, PRCAL, MYCM #### [facility] [employer] [address] [place] [address] 43155 WBC Morphology NOT REPORTED Normal [facility] Comment on above: Performed By: #### L ACDS, TROPI, PRCAL, MYCM #### [address] [address] Comp Metabolic Pr/rfx MGon 1 10-20-2017 (cont.) Normal [facility] Comment on above: Result Comment: Aver age GFR for 30-39 years old: 107 mL/min/1.73sq m Chronic Kidney Disease: <60 mL/min/1.73sq m Kidney failure: <15 mL/min/1.73sq m eGFR calculated using average adult body mass. Additional eGFR calculator available at: http://www.Roomixer/multiple_crcl_2012.htm Performed By: #### L ACDS, TROPI, PRCAL, MYCM #### [address] [address]85 Albumin mass conc 3.1 g/dL Low 3.5-5.2 [facility] Comment on above: Performed By: #### L ACDS, TROPI, PRCAL, MYCM #### [facility] [employer] [address] [place] [address] 98569 Albumin/Globulin mass ratio 0.9 {ratio} Low 1.0-2.5 [facility] Comment on above: Performed By: #### L ACDS, TROPI, PRCAL, MYCM #### [facility] [employer] [address] [place] [address] 99850 Alkaline Phos 83 U/L Normal 35-104 [facility] Comment on above: Performed By: #### L ACDS, TROPI, PRCAL, MYCM #### [facility] [employer] [address] [place] [address] 55404 ALT enzyme act/vol 17 U/L Normal 5-33 [facility] Comment on above: Performed By: #### L ACDS, TROPI, PRCAL, MYCM #### [facility] [employer] [address] [place] [address] 61244 Anion gap molar conc 11 mmol/L Normal 9-17 [facility] Comment on above: Performed By: #### L ACDS, TROPI, PRCAL, MYCM #### [facility] [employer] [address] [place] [address] 65728 AST enzyme act/vol 18 U/L Normal <32 [facility] Comment on above: Performed By: #### L ACDS, TROPI, PRCAL, MYCM #### [facility] [employer] [address] [place] [address] 20844 Bilirubin Ql (U) 0.29 mg/dL Low 0.3-1.2 [facility] Comment on above: Performed By: #### L ACDS, TROPI, PRCAL, MYCM #### [facility] [employer] [address] [place] [address] 80694 Calcium mass conc 9.0 mg/dL Normal 8.6-10.4 [facility] Comment on above: Performed By: #### L ACDS, TROPI, PRCAL, MYCM #### [facility] [employer] [address] [place] [address] 49369 Chloride molar conc 101 mmol/L Normal 98-107 [facility] Comment on above: Performed By: #### L ACDS, TROPI, PRCAL, MYCM #### [facility] [employer] [address] [place] [address] 19078 CO2 molar conc 27 mmol/L Normal 20-31 [facility] Comment on above: Performed By: #### L ACDS, TROPI, PRCAL, MYCM #### [facility] [employer] [address] [place] [address] 68689 Creatinine mass conc 0.97 mg/dL High 0.50-0.90 [facility] Comment on above: Performed By: #### L ACDS, TROPI, PRCAL, MYCM #### [facility] [employer] [address] [place] [address] 20843 GFR, Amer >60 Normal >60 [facility] Comment on above: Performed By: #### L ACDS, TROPI, PRCAL, MYCM #### [facility] [employer] [address] [place] [address] 99056 GFR,non Amer >60 Normal >60 [facility] Comment on above: Performed By: #### L ACDS, TROPI, PRCAL, MYCM #### [facility] [employer] [address] [place] [address] 45958 Glucose mass conc 105 mg/dL High 70-99 [facility] Comment on above: Performed By: #### L ACDS, TROPI, PRCAL, MYCM #### [facility] [employer] [address] [place] [address] 36049 Potassium molar conc 4.4 mmol/L Normal 3.7-5.3 [facility] Comment on above: Performed By: #### L ACDS, TROPI, PRCAL, MYCM #### [facility] [employer] [address] [place] [address] 46855 Protein mass conc 6.6 g/dL Normal 6.4-8.3 [facility] Comment on above: Performed By: #### L ACDS, TROPI, PRCAL, MYCM #### [facility] [employer] [address] [place] [address] 96248 Sodium molar conc 139 mmol/L Normal 135-144 [facility] Comment on above: Performed By: #### L ACDS, TROPI, PRCAL, MYCM #### [facility] [employer] [address] [place] [address] 83763 Urea nitrogen mass conc 15 mg/dL Normal 6-20 [facility] Comment on above: Performed By: #### L ACDS, TROPI, PRCAL, MYCM #### [facility] [employer] [address] [place] [address] 16630 BUN/CRE Ratio NOT REPORTED Normal 9-20 [facility] Comment on above: Performed By: #### L ACDS, TROPI, PRCAL, MYCM #### [facility] [employer] [facility] [place] [address] Staging: NOT REPORTED Normal [facility] Comment on above: Performed By: #### L ACDS, TROPI, PRCAL, MYCM #### [facility] [employer] [facility] [place] [address] Magnesiumon 08-20-2018 Magnesium mass conc 2.2 mg/dL Normal 1.6-2.6 [facility] Comment on above: Performed By: #### L ACDS, TROPI, PRCAL, MYCM #### [facility] [employer] [address] [place] [address] 81764 Sedimentation Rateon 018 Sedimentation Rate 100 mm High 0-20 [facility] Comment on above: Performed By: #### L ACDS, TROPI, PRCAL, MYCM #### [facility] [employer] [address] [place] [address] [phone] XR FOOT LEFT (MIN 3 VIEWS)on 08-20-2018 [...] Andrey Angelo MD 08/20/18 Final result Normal [facility] CBC with Diffon 08-19-2018 Abs. Basophil 0.00 k/uL Normal 0.0-0.2 [facility] Comment on above: Performed By: #### L ACDS, TROPI, PRCAL, MYCM #### [facility] [employer] [address] [place] [address] 87827 Abs.Imm.Granulocyte 0.42 k/uL High 0.00-0.30 [facility] Comment on above: Performed By: #### L ACDS, TROPI, PRCAL, MYCM #### [address] [address] Abs.Neutrophil (Seg) 2.70 k/uL Normal 1.8-7.7 [facility] Comment on above: Performed By: #### L ACDS, TROPI, PRCAL, MYCM #### [facility] [employer] [address] [place] [address] 28473 Basophils/100 WBC (Bld) 0 % Normal 0-2 [facility] Comment on above: Performed By: #### L ACDS, TROPI, PRCAL, MYCM #### [address] [address] Eosinophils #/vol (Bld) 0.30 10*3/uL Normal 0.0-0.4 [facility] Comment on above: Performed By: #### L ACDS, TROPI, PRCAL, MYCM #### [address] [address] Eosinophils/100 WBC (Bld) 5 % High 1-4 [facility] Comment on above: Performed By: #### L ACDS, TROPI, PRCAL, MYCM #### [address] [address]66 Immature granulocytes #/vol (Bld) 7 % High 0 [facility] Comment on above: Performed By: #### L ACDS, TROPI, PRCAL, MYCM #### [address] [address]841 Lymphocytes #/vol (Bld) 2.22 10*3/uL Normal 1.0-4.8 [facility] Comment on above: Performed By: #### L ACDS, TROPI, PRCAL, MYCM #### [address] 18165 Lymphocytes/100 WBC (Bld) 37 % Normal 24-44 [facility] Comment on above: Performed By: #### L ACDS, TROPI, PRCAL, MYCM #### [address] [address] Monocytes #/vol (Bld) 0.36 10*3/uL Normal 0.1-0.8 [facility] Comment on above: Performed By: #### L ACDS, TROPI, PRCAL, MYCM #### [address] 98312 Monocytes/100 WBC (Bld) 6 % Normal 1-7 [facility] Comment on above: Performed By: #### L ACDS, TROPI, PRCAL, MYCM #### [address] [address]244 Morphology Interp Rehan (Bld) ANISOCYTOSIS PRESENT Normal [facility] Comment on above: Performed By: #### L ACDS, TROPI, PRCAL, MYCM #### [address] [address]138 Neutrophil (Seg) 45 % Normal 36-66 [facility] Comment on above: Performed By: #### L ACDS, TROPI, PRCAL, MYCM #### [facility] [employer] [address] [place] [address] 73047 Erythrocyte distribution width Ratio (RBC) 14.6 % High 11.8-14.4 [facility] Comment on above: Performed By: #### L ACDS, TROPI, PRCAL, MYCM #### [facility] [employer] [address] [place] [address] 56513 Hematocrit Volume Fraction (Bld) 34.4 % Low 36.3-47.1 [facility] Comment on above: Performed By: #### L ACDS, TROPI, PRCAL, MYCM #### [address] [address] Hemoglobin mass conc (Bld) 10.4 g/dL Low 11.9-15.1 [facility] Comment on above: Performed By: #### L ACDS, TROPI, PRCAL, MYCM #### [address] 66167 MCH Entitic mass (RBC) 28.0 pg Normal 25.2-33.5 [facility] Comment on above: Performed By: #### L ACDS, TROPI, PRCAL, MYCM #### [address] 01017 MCHC mass conc (RBC) 30.2 g/dL Normal 28.4-34.8 [facility] Comment on above: Performed By: #### L ACDS, TROPI, PRCAL, MYCM #### [address] 03946 MCV Entitic volume (RBC) 92.7 fL Normal 82.6-102.9 [facility] Comment on above: Performed By: #### L ACDS, TROPI, PRCAL, MYCM #### [address] [address]279 NRBC Automated 0.3 per 100 WBC High 0.0 [facility] Comment on above: Performed By: #### L ACDS, TROPI, PRCAL, MYCM #### [address] [address]145 Platelet mean volume Entitic volume (Bld) 10.5 fL Normal 8.1-13.5 [facility] Comment on above: Performed By: #### L ACDS, TROPI, PRCAL, MYCM #### [address] [address]223 Platelets #/vol (Bld) 168 10*3/uL Normal 138-453 [facility] Comment on above: Performed By: #### L ACDS, TROPI, PRCAL, MYCM #### [facility] [employer] [address] [place] [address] 07919 RBC #/vol (Bld) 3.71 10*6/uL Low 3.95-5.11 [facility] Comment on above: Performed By: #### L ACDS, TROPI, PRCAL, MYCM #### [address] [address]65 WBC #/vol (Bld) 6.0 10*3/uL Normal 3.5-11.3 [facility] Comment on above: Performed By: #### L ACDS, TROPI, PRCAL, MYCM #### [facility] [employer] [address] [place] [address] 65876 Auto Diff Performed NOT REPORTED Normal [facility] Comment on above: Performed By: #### L ACDS, TROPI, PRCAL, MYCM #### [facility] [employer] [address] [place] [address] 34096 Platelets #/vol (Bld) NOT REPORTED Normal [facility] Comment on above: Performed By: #### L ACDS, TROPI, PRCAL, MYCM #### [facility] [employer] [address] [place] [address] 55375 RBC morphology finding Nom (Bld) NOT REPORTED Normal [facility] Comment on above: Performed By: #### L ACDS, TROPI, PRCAL, MYCM #### [facility] [employer] [address] [place] [address] 98457 WBC Morphology NOT REPORTED Normal [facility] Comment on above: Performed By: #### L ACDS, TROPI, PRCAL, MYCM #### [facility] [employer] [address] [place] [address] 22266 Comp Metabolic Pr/rfx MGon 1 10-19-2017 (cont.) Normal [facility] Comment on above: Result Comment: Aver age GFR for 30-39 years old: 107 mL/min/1.73sq m Chronic Kidney Disease: <60 mL/min/1.73sq m Kidney failure: <15 mL/min/1.73sq m eGFR calculated using average adult body mass. Additional eGFR calculator available at: http://www.[employer]/multiple_crcl_2012.htm Performed By: #### L ACDS, TROPI, PRCAL, MYCM #### [facility] [employer] [address] [place] [address] 80207 Albumin mass conc 2.7 g/dL Low 3.5-5.2 [facility] Comment on above: Performed By: #### L ACDS, TROPI, PRCAL, MYCM #### [facility] [employer] [address] [place] [address] 57917 Albumin/Globulin mass ratio 0.8 {ratio} Low 1.0-2.5 [facility] Comment on above: Performed By: #### L ACDS, TROPI, PRCAL, MYCM #### [facility] [employer] [address] [place] [address] 91093 Alkaline Phos 78 U/L Normal 35-104 [facility] Comment on above: Performed By: #### L ACDS, TROPI, PRCAL, MYCM #### [facility] [employer] [facility] [place] [address] ALT enzyme act/vol 16 U/L Normal 5-33 [facility] Comment on above: Performed By: #### L ACDS, TROPI, PRCAL, MYCM #### [facility] [employer] [address] [place] [address] 91279 Anion gap molar conc 10 mmol/L Normal 9-17 [facility] Comment on above: Performed By: #### L ACDS, TROPI, PRCAL, MYCM #### [facility] [employer] [address] [place] [address] 08777 AST enzyme act/vol 16 U/L Normal <32 [facility] Comment on above: Performed By: #### L ACDS, TROPI, PRCAL, MYCM #### [address] [address] Bilirubin Ql (U) 0.21 mg/dL Low 0.3-1.2 [facility] Comment on above: Performed By: #### L ACDS, TROPI, PRCAL, MYCM #### [facility] [employer] [address] [place] [address] 64240 Calcium mass conc 8.5 mg/dL Low 8.6-10.4 [facility] Comment on above: Performed By: #### L ACDS, TROPI, PRCAL, MYCM #### [facility] [employer] [address] [place] [address] 09581 Chloride molar conc 103 mmol/L Normal 98-107 [facility] Comment on above: Performed By: #### L ACDS, TROPI, PRCAL, MYCM #### [address] [address]19 CO2 molar conc 24 mmol/L Normal 20-31 [facility] Comment on above: Performed By: #### L ACDS, TROPI, PRCAL, MYCM #### [facility] [employer] [address] [place] [address] 60077 Creatinine mass conc 0.88 mg/dL Normal 0.50-0.90 [facility] Comment on above: Performed By: #### L ACDS, TROPI, PRCAL, MYCM #### [facility] [employer] [address] [place] [address] 60302 GFR, Amer >60 Normal >60 [facility] Comment on above: Performed By: #### L ACDS, TROPI, PRCAL, MYCM #### [facility] [employer] [address] [place] [address] 82970 GFR,non Amer >60 Normal >60 [facility] Comment on above: Performed By: #### L ACDS, TROPI, PRCAL, MYCM #### [facility] [employer] [address] [place] [address] 01313 Glucose mass conc 104 mg/dL High 70-99 [facility] Comment on above: Performed By: #### L ACDS, TROPI, PRCAL, MYCM #### [facility] [employer] [address] [place] [address] 22492 Potassium molar conc 4.0 mmol/L Normal 3.7-5.3 [facility] Comment on above: Performed By: #### L ACDS, TROPI, PRCAL, MYCM #### [facility] [employer] [address] [place] [address] 20347 Protein mass conc 6.3 g/dL Low 6.4-8.3 [facility] Comment on above: Performed By: #### L ACDS, TROPI, PRCAL, MYCM #### [facility] [employer] [address] [place] [address] 09634 Sodium molar conc 137 mmol/L Normal 135-144 [facility] Comment on above: Performed By: #### L ACDS, TROPI, PRCAL, MYCM #### [facility] [address] [place] [address] 39949 Urea nitrogen mass conc 16 mg/dL Normal 6-20 [facility] Comment on above: Performed By: #### L ACDS, TROPI, PRCAL, MYCM #### [facility] [employer] [address] [place] [address] 34412 BUN/CRE Ratio NOT REPORTED Normal 9-20 [facility] Comment on above: Performed By: #### L ACDS, TROPI, PRCAL, MYCM #### [facility] [place], [place] [id number] Staging: NOT REPORTED Normal [facility] Comment on above: Performed By: #### L ACDS, TROPI, PRCAL, MYCM #### [employer] [address] [place] [address] [id number] Cult, Bloodon 08-19-2018 Cult, Blood Specimen Description [...] Trimethoprim/Sulfa <=10 SUSCEPTIBLE Vancomycin 1 SUSCEPTIBLE Normal [facility] Comment on above: Performed By: #### L ACDS, TROPI, PRCAL, MYCM #### [employer] [address] [place] [address] [phone] MRI CERVICAL SPINE W WO CONT RASTon [...] Bo Rodrigues MD 08/19/18 Final result Normal [facility] MRI LUMBAR SPINE W WO ALEXY [...] Bo Rodrigues MD 08/19/18 Final result Normal [facility] MRI THORACIC SPINE W WO CONT [...] Bo Rodrigues MD 08/19/18 Final result Normal [facility] Magnesiumon 08-19-2018 Magnesium mass conc 2.3 mg/dL Normal 1.6-2.6 [facility] Comment on above: Performed By: #### L ACDS, TROPI, PRCAL, MYCM #### [facility] [place] [address] Procalcitoninon 08-19-2018 Protein mass conc 0.57 ng/mL High <0.09 [facility] Comment on above: Result Comment: Suspected Sepsis: [...] entered into the Change in Procalcitonin Calculator (www.wqhyok-ofe-uluznrjuqw.CloSys) to determine the patient's Mortality Risk Prognosis Performed By: #### L ACDS, TROPI, PRCAL, MYCM #### [facility] [employer] [address] [place] [address] CBC with Diffon 08-18-2018 Abs. Basophil <0.03 Normal 0.00-0.20 [facility] Comment on above: Performed By: #### L ACDS, TROPI, PRCAL, MYCM #### [facility] [employer] [address] [place] [address] 90564 Abs.Imm.Granulocyte 0.28 k/uL Normal 0.00-0.30 [facility] Comment on above: Performed By: #### L ACDS, TROPI, PRCAL, MYCM #### [facility] [employer] [address] [place] [address] 28659 Abs.Neutrophil (Seg) 3.23 k/uL Normal 1.50-8.10 [facility] Comment on above: Performed By: #### L ACDS, TROPI, PRCAL, MYCM #### [facility] [employer] [address] [place] [address] 29000 Basophils/100 WBC (Bld) 0 % Normal 0-2 [facility] Comment on above: Performed By: #### L ACDS, TROPI, PRCAL, MYCM #### [facility] [employer] [address] [place] [address] 17221 Eosinophils #/vol (Bld) 0.15 10*3/uL Normal 0.00-0.44 [facility] Comment on above: Performed By: #### L ACDS, TROPI, PRCAL, MYCM #### [address] [address] Eosinophils/100 WBC (Bld) 3 % Normal 1-4 [facility] Comment on above: Performed By: #### L ACDS, TROPI, PRCAL, MYCM #### [facility] [employer] [address] [place] [address] 62896 Erythrocyte distribution width Ratio (RBC) 14.7 % High 11.8-14.4 [facility] Comment on above: Performed By: #### L ACDS, TROPI, PRCAL, MYCM #### [address] [address] Hematocrit Volume Fraction (Bld) 32.7 % Low 36.3-47.1 [facility] Comment on above: Performed By: #### L ACDS, TROPI, PRCAL, MYCM #### [address] 644[address] Hemoglobin mass conc (Bld) 10.1 g/dL Low 11.9-15.1 [facility] Comment on above: Performed By: #### L ACDS, TROPI, PRCAL, MYCM #### [address] 969[address] Immature granulocytes #/vol (Bld) 5 % High 0 [facility] Comment on above: Performed By: #### L ACDS, TROPI, PRCAL, MYCM #### [facility] [employer] [address] [place] [address] 41696 Lymphocytes #/vol (Bld) 1.58 10*3/uL Normal 1.10-3.70 [facility] Comment on above: Performed By: #### L ACDS, TROPI, PRCAL, MYCM #### [address] 27830 Lymphocytes/100 WBC (Bld) 28 % Normal 24-43 [facility] Comment on above: Performed By: #### L ACDS, TROPI, PRCAL, MYCM #### [address] [address] MCH Entitic mass (RBC) 28.2 pg Normal 25.2-33.5 [facility] Comment on above: Performed By: #### L ACDS, TROPI, PRCAL, MYCM #### [address] [address]84 MCHC mass conc (RBC) 30.9 g/dL Normal 28.4-34.8 [facility] Comment on above: Performed By: #### L ACDS, TROPI, PRCAL, MYCM #### [address] [address] MCV Entitic volume (RBC) 91.3 fL Normal 82.6-102.9 [facility] Comment on above: Performed By: #### L ACDS, TROPI, PRCAL, MYCM #### [address] [address] Monocytes #/vol (Bld) 0.47 10*3/uL Normal 0.10-1.20 [facility] Comment on above: Performed By: #### L ACDS, TROPI, PRCAL, MYCM #### [address] [address]271 Monocytes/100 WBC (Bld) 8 % Normal 3-12 [facility] Comment on above: Performed By: #### L ACDS, TROPI, PRCAL, MYCM #### [address] [address]27 Neutrophil (Seg) 56 % Normal 36-65 [facility] Comment on above: Performed By: #### L ACDS, TROPI, PRCAL, MYCM #### [address] [address] NRBC Automated 0.0 per 100 WBC Normal 0.0 [facility] Comment on above: Performed By: #### L ACDS, TROPI, PRCAL, MYCM #### [address] [address] Platelet mean volume Entitic volume (Bld) 11.4 fL Normal 8.1-13.5 [facility] Comment on above: Performed By: #### L ACDS, TROPI, PRCAL, MYCM #### [address] [address] Platelets #/vol (Bld) 153 10*3/uL Normal 138-453 [facility] Comment on above: Performed By: #### L ACDS, TROPI, PRCAL, MYCM #### [address] [address] RBC #/vol (Bld) 3.58 10*6/uL Low 3.95-5.11 [facility] Comment on above: Performed By: #### L ACDS, TROPI, PRCAL, MYCM #### [address] [address] RBC morphology finding Nom (Bld) ANISOCYTOSIS PRESENT Normal [facility] Comment on above: Performed By: #### L ACDS, TROPI, PRCAL, MYCM #### [address] [address] WBC #/vol (Bld) 5.7 10*3/uL Normal 3.5-11.3 [facility] Comment on above: Performed By: #### L ACDS, TROPI, PRCAL, MYCM #### [address] [place] [address] Auto Diff Performed NOT REPORTED Normal [facility] Comment on above: Performed By: #### L ACDS, TROPI, PRCAL, MYCM #### [address] [address] Platelets #/vol (Bld) NOT REPORTED Normal [facility] Comment on above: Performed By: #### L ACDS, TROPI, PRCAL, MYCM #### [facility] [employer] [address] [place] [address] 11522 WBC Morphology NOT REPORTED Normal [facility] Comment on above: Performed By: #### L ACDS, TROPI, PRCAL, MYCM #### [address] [address] Comp Metabolic Pr/rfx MGon 1 10-18-2017 (cont.) Normal [facility] Comment on above: Result Comment: Aver age GFR for 30-39 years old: 107 mL/min/1.73sq m Chronic Kidney Disease: <60 mL/min/1.73sq m Kidney failure: <15 mL/min/1.73sq m eGFR calculated using average adult body mass. Additional eGFR calculator available at: http://www.Parudi.CloSys/multiple_crcl_2012.htm Performed By: #### L ACDS, TROPI, PRCAL, MYCM #### [facility] [employer] [address] [place] [address] 72510 Albumin mass conc 2.7 g/dL Low 3.5-5.2 [facility] Comment on above: Performed By: #### L ACDS, TROPI, PRCAL, MYCM #### [facility] [employer] [address] [place] [address] 77727 Albumin/Globulin mass ratio 0.8 {ratio} Low 1.0-2.5 [facility] Comment on above: Performed By: #### L ACDS, TROPI, PRCAL, MYCM #### [facility] [employer] [address] [place] [address] 23689 Alkaline Phos 82 U/L Normal 35-104 [facility] Comment on above: Performed By: #### L ACDS, TROPI, PRCAL, MYCM #### [facility] [employer] [address] [place] [address] 54668 ALT enzyme act/vol 19 U/L Normal 5-33 [facility] Comment on above: Performed By: #### L ACDS, TROPI, PRCAL, MYCM #### [facility] [employer] [address] [place] [address] 31957 Anion gap molar conc 8 mmol/L Low 9-17 [facility] Comment on above: Performed By: #### L ACDS, TROPI, PRCAL, MYCM #### [facility] [employer] [address] [place] [address] 65529 AST enzyme act/vol 17 U/L Normal <32 [facility] Comment on above: Performed By: #### L ACDS, TROPI, PRCAL, MYCM #### [facility] [employer] [address] [place] [address] 00203 Bilirubin Ql (U) 0.24 mg/dL Low 0.3-1.2 [facility] Comment on above: Performed By: #### L ACDS, TROPI, PRCAL, MYCM #### [facility] [employer] [address] [place] [address] 82411 Calcium mass conc 8.2 mg/dL Low 8.6-10.4 [facility] Comment on above: Performed By: #### L ACDS, TROPI, PRCAL, MYCM #### [facility] [employer] [address] [place] [address] 39298 Chloride molar conc 103 mmol/L Normal 98-107 [facility] Comment on above: Performed By: #### L ACDS, TROPI, PRCAL, MYCM #### [facility] [employer] [address] [place] [address] 10016 CO2 molar conc 25 mmol/L Normal 20-31 [facility] Comment on above: Performed By: #### L ACDS, TROPI, PRCAL, MYCM #### [facility] [employer] [address] [place] [address] 39871 Creatinine mass conc 0.94 mg/dL High 0.50-0.90 [facility] Comment on above: Performed By: #### L ACDS, TROPI, PRCAL, MYCM #### [facility] [employer] [address] [place] [address] 88775 GFR, Amer >60 Normal >60 [facility] Comment on above: Performed By: #### L ACDS, TROPI, PRCAL, MYCM #### [facility] [employer] [address] [place] [address] 57287 GFR,non Amer >60 Normal >60 [facility] Comment on above: Performed By: #### L ACDS, TROPI, PRCAL, MYCM #### [facility] [employer] [address] [place] [address] 66358 Glucose mass conc 107 mg/dL High 70-99 [facility] Comment on above: Performed By: #### L ACDS, TROPI, PRCAL, MYCM #### [facility] [employer] [address] [place] [address] 90365 Potassium molar conc 4.1 mmol/L Normal 3.7-5.3 [facility] Comment on above: Performed By: #### L ACDS, TROPI, PRCAL, MYCM #### [facility] [employer] [address] [place] [address] 70306 Protein mass conc 6.2 g/dL Low 6.4-8.3 [facility] Comment on above: Performed By: #### L ACDS, TROPI, PRCAL, MYCM #### [facility] [address] [place] [address] 60594 Sodium molar conc 136 mmol/L Normal 135-144 [facility] Comment on above: Performed By: #### L ACDS, TROPI, PRCAL, MYCM #### [facility] [address] [place] [address] 45689 Urea nitrogen mass conc 14 mg/dL Normal -20 [facility] Comment on above: Performed By: #### L ACDS, TROPI, PRCAL, MYCM #### [facility] [address] [place] [address] 78143 BUN/CRE Ratio NOT REPORTED Normal 06-24 [facility] Comment on above: Performed By: #### L ACDS, TROPI, PRCAL, MYCM #### [facility] [address] [place] [address] 52611 Staging: NOT REPORTED Normal [facility] Comment on above: Performed By: #### L ACDS, TROPI, PRCAL, MYCM #### [facility] [address] [place] [address] 04605 Magnesiumon 08-18-2018 Magnesium mass conc 2.3 mg/dL Normal 1.6-2.6 [facility] Comment on above: Performed By: #### L ACDS, TROPI, PRCAL, MYCM #### [employer] [address] [place] [address] 61645 Vancomycin Troughon 08-18-20 18 Vancomycin Trough 14.7 ug/mL Normal 10.0-20.0 [facility] Comment on above: Result Comment: High er trough serum vancomycin concentrations of 15-20 ug/mL are recommended for complicated infections such as bacteremia, endocarditis, osteomyelitis, meningitis, and hospital acquired pneumonia. Performed By: #### L ACDS, TROPI, PRCAL, MYCM #### [employer] [address] [place] [address] 35692 Date last dose, NOT REPORTED Normal [facility] Comment on above: Performed By: #### L ACDS, TROPI, PRCAL, MYCM #### [address] [address] Dose amount, NOT REPORTED Normal [facility] Comment on above: Performed By: #### L ACDS, TROPI, PRCAL, MYCM #### [facility] [employer] [address] [place] [address] 93186 Time last dose, NOT REPORTED Normal [facility] Comment on above: Performed By: #### L ACDS, TROPI, PRCAL, MYCM #### [facility] [employer] [address] [place] [address] 45740 C-Reactive Proteinon 018 CRP mass conc 188.1 mg/L High 0.0-5.0 [facility] Comment on above: Performed By: #### L ACDS, TROPI, PRCAL, MYCM #### [address] [address] CBC with Diffon 08-17-2018 Abs. Basophil 0.00 k/uL Normal 0.0-0.2 [facility] Comment on above: Performed By: #### L ACDS, TROPI, PRCAL, MYCM #### [facility] [employer] [address] [place] [address] 56782 Abs.Imm.Granulocyte 0.13 k/uL Normal 0.00-0.30 [facility] Comment on above: Performed By: #### L ACDS, TROPI, PRCAL, MYCM #### [facility] [employer] [address] [place] [address] 71794 Abs.Neutrophil (Seg) 4.35 k/uL Normal 1.8-7.7 [facility] Comment on above: Performed By: #### L ACDS, TROPI, PRCAL, MYCM #### [facility] [employer] [address] [place] [address] 07710 Basophils/100 WBC (Bld) 0 % Normal 0-2 [facility] Comment on above: Performed By: #### L ACDS, TROPI, PRCAL, MYCM #### [address] [address] Eosinophils #/vol (Bld) 0.06 10*3/uL Normal 0.0-0.4 [facility] Comment on above: Performed By: #### L ACDS, TROPI, PRCAL, MYCM #### [facility] [employer] [address] [place] [address] 84087 Eosinophils/100 WBC (Bld) 1 % Normal 1-4 [facility] Comment on above: Performed By: #### L ACDS, TROPI, PRCAL, MYCM #### [address] [address] Immature granulocytes #/vol (Bld) 2 % High 0 [facility] Comment on above: Performed By: #### L ACDS, TROPI, PRCAL, MYCM #### [facility] [employer] [address] [place] [address] 80090 Lymphocytes #/vol (Bld) 1.32 10*3/uL Normal 1.0-4.8 [facility] Comment on above: Performed By: #### L ACDS, TROPI, PRCAL, MYCM #### [facility] [employer] [address] [place] [address] 50967 Lymphocytes/100 WBC (Bld) 21 % Low 24-44 [facility] Comment on above: Performed By: #### L ACDS, TROPI, PRCAL, MYCM #### [facility] [employer] [address] [place] [address] 73579 Monocytes #/vol (Bld) 0.44 10*3/uL Normal 0.1-0.8 [facility] Comment on above: Performed By: #### L ACDS, TROPI, PRCAL, MYCM #### [address] [address] Monocytes/100 WBC (Bld) 7 % Normal 1-7 [facility] Comment on above: Performed By: #### L ACDS, TROPI, PRCAL, MYCM #### [address] [address] Morphology Interp Rehan (Bld) ANISOCYTOSIS PRESENT Normal [facility] Comment on above: Result Comment: INCR EASED BANDS PRESENT 1+ TEARDROPS Performed By: #### L ACDS, TROPI, PRCAL, MYCM #### [address] [address] Neutrophil (Seg) 69 % High 36-66 [facility] Comment on above: Performed By: #### L ACDS, TROPI, PRCAL, MYCM #### [address] 84072 Erythrocyte distribution width Ratio (RBC) 14.8 % High 11.8-14.4 [facility] Comment on above: Performed By: #### L ACDS, TROPI, PRCAL, MYCM #### [address] [address]69 Hematocrit Volume Fraction (Bld) 33.3 % Low 36.3-47.1 [facility] Comment on above: Performed By: #### L ACDS, TROPI, PRCAL, MYCM #### [facility] [employer] [address] [place] [address] 98542 Hemoglobin mass conc (Bld) 10.2 g/dL Low 11.9-15.1 [facility] Comment on above: Performed By: #### L ACDS, TROPI, PRCAL, MYCM #### [address] [address]1997 MCH Entitic mass (RBC) 28.3 pg Normal 25.2-33.5 [facility] Comment on above: Performed By: #### L ACDS, TROPI, PRCAL, MYCM #### [address] 93925 MCHC mass conc (RBC) 30.6 g/dL Normal 28.4-34.8 [facility] Comment on above: Performed By: #### L ACDS, TROPI, PRCAL, MYCM #### [address] [address]12 MCV Entitic volume (RBC) 92.2 fL Normal 82.6-102.9 [facility] Comment on above: Performed By: #### L ACDS, TROPI, PRCAL, MYCM #### [address] [address]37 NRBC Automated 0.0 per 100 WBC Normal 0.0 [facility] Comment on above: Performed By: #### L ACDS, TROPI, PRCAL, MYCM #### [address] [address]63 Platelet mean volume Entitic volume (Bld) 11.5 fL Normal 8.1-13.5 [facility] Comment on above: Performed By: #### L ACDS, TROPI, PRCAL, MYCM #### [address] [address] Platelets #/vol (Bld) 149 10*3/uL Normal 138-453 [facility] Comment on above: Performed By: #### L ACDS, TROPI, PRCAL, MYCM #### [address] [address] RBC #/vol (Bld) 3.61 10*6/uL Low 3.95-5.11 [facility] Comment on above: Performed By: #### L ACDS, TROPI, PRCAL, MYCM #### [address] [address] WBC #/vol (Bld) 6.3 10*3/uL Normal 3.5-11.3 [facility] Comment on above: Performed By: #### L ACDS, TROPI, PRCAL, MYCM #### [facility] [employer] [address] [place] [address] 08694 Auto Diff Performed NOT REPORTED Normal [facility] Comment on above: Performed By: #### L ACDS, TROPI, PRCAL, MYCM #### [facility] [employer] [address] [place] [address] 22078 Platelets #/vol (Bld) NOT REPORTED Normal [facility] Comment on above: Performed By: #### L ACDS, TROPI, PRCAL, MYCM #### [facility] [employer] [address] [place] [address] 28061 RBC morphology finding Nom (Bld) NOT REPORTED Normal [facility] Comment on above: Performed By: #### L ACDS, TROPI, PRCAL, MYCM #### [address] [address] WBC Morphology NOT REPORTED Normal [facility] Comment on above: Performed By: #### L ACDS, TROPI, PRCAL, MYCM #### [facility] [employer] [address] [place] [address] 97454 Comp Metabolic Pr/rfx MGon 1 10-17-2017 (cont.) Normal [facility] Comment on above: Result Comment: Aver age GFR for 30-39 years old: 107 mL/min/1.73sq m Chronic Kidney Disease: <60 mL/min/1.73sq m Kidney failure: <15 mL/min/1.73sq m eGFR calculated using average adult body mass. Additional eGFR calculator available at: http://www.Parudi.CloSys/multiple_crcl_2011.htm Performed By: #### L ACDS, TROPI, PRCAL, MYCM #### [facility] [employer] [address] [place] [address] 74195 Albumin mass conc 2.4 g/dL Low 3.5-5.2 [facility] Comment on above: Performed By: #### L ACDS, TROPI, PRCAL, MYCM #### [facility] [employer] [address] [place] [address] 33507 Albumin/Globulin mass ratio 0.7 {ratio} Low 1.0-2.5 [facility] Comment on above: Performed By: #### L ACDS, TROPI, PRCAL, MYCM #### [facility] [employer] [address] [place] [address] 36576 Alkaline Phos 76 U/L Normal 35-104 [facility] Comment on above: Performed By: #### L ACDS, TROPI, PRCAL, MYCM #### [facility] [employer] [address] [place] [address] 63137 ALT enzyme act/vol 25 U/L Normal 5-33 [facility] Comment on above: Performed By: #### L ACDS, TROPI, PRCAL, MYCM #### [facility] [employer] [address] [place] [address] 64466 Anion gap molar conc 8 mmol/L Low 9-17 [facility] Comment on above: Performed By: #### L ACDS, TROPI, PRCAL, MYCM #### [facility] [employer] [address] [place] [address] 69602 AST enzyme act/vol 26 U/L Normal <32 [facility] Comment on above: Performed By: #### L ACDS, TROPI, PRCAL, MYCM #### [facility] [employer] [address] [place] [address] 64619 Bilirubin Ql (U) 0.34 mg/dL Normal 0.3-1.2 [facility] Comment on above: Performed By: #### L ACDS, TROPI, PRCAL, MYCM #### [facility] [employer] [address] [place] [address] 83726 Calcium mass conc 7.8 mg/dL Low 8.6-10.4 [facility] Comment on above: Performed By: #### L ACDS, TROPI, PRCAL, MYCM #### [facility] [employer] [address] [place] [address] 55465 Chloride molar conc 99 mmol/L Normal 98-107 [facility] Comment on above: Performed By: #### L ACDS, TROPI, PRCAL, MYCM #### [facility] [employer] [address] [place] [address] 59874 CO2 molar conc 23 mmol/L Normal 20-31 [facility] Comment on above: Performed By: #### L ACDS, TROPI, PRCAL, MYCM #### [facility] [employer] [address] [place] [address] 49099 Creatinine mass conc 1.04 mg/dL High 0.50-0.90 [facility] Comment on above: Performed By: #### L ACDS, TROPI, PRCAL, MYCM #### [facility] [employer] [address] [place] [address] 17036 GFR, Amer >60 Normal >60 [facility] Comment on above: Performed By: #### L ACDS, TROPI, PRCAL, MYCM #### [facility] [employer] [address] [place] [address] 78795 GFR,non Amer 59 mL/min Low >60 [facility] Comment on above: Performed By: #### L ACDS, TROPI, PRCAL, MYCM #### [facility] [employer] [address] [place] [address] 22586 Glucose mass conc 109 mg/dL High 70-99 [facility] Comment on above: Performed By: #### L ACDS, TROPI, PRCAL, MYCM #### [facility] [employer] [address] [place] [address] 90993 Potassium molar conc 3.8 mmol/L Normal 3.7-5.3 [facility] Comment on above: Performed By: #### L ACDS, TROPI, PRCAL, MYCM #### [facility] [employer] [address] [place] [address] 33767 Protein mass conc 5.8 g/dL Low 6.4-8.3 [facility] Comment on above: Performed By: #### L ACDS, TROPI, PRCAL, MYCM #### [facility] [address] [place] [address] 77418 Sodium molar conc 130 mmol/L Low 135-144 [facility] Comment on above: Performed By: #### L ACDS, TROPI, PRCAL, MYCM #### [address] [address] Urea nitrogen mass conc 15 mg/dL Normal 6-20 [facility] Comment on above: Performed By: #### L ACDS, TROPI, PRCAL, MYCM #### [facility] [employer] [address] [place] [address] 97788 BUN/CRE Ratio NOT REPORTED Normal 9-20 [facility] Comment on above: Performed By: #### L ACDS, TROPI, PRCAL, MYCM #### [facility] [employer] [address] [place] [address] 84493 Staging: NOT REPORTED Normal [facility] Comment on above: Performed By: #### L ACDS, TROPI, PRCAL, MYCM #### [facility] [address] [place] [address] 40803 Magnesiumon 08-17-2018 Magnesium mass conc 2.2 mg/dL Normal 1.6-2.6 [facility] Comment on above: Performed By: #### L ACDS, TROPI, PRCAL, MYCM #### [facility] [address] [place] [address] 64835 Procalcitoninon 08-17-2018 Protein mass conc 1.48 ng/mL High <0.09 [facility] Comment on above: Result Comment: Suspected Sepsis: [...] entered into the Change in Procalcitonin Calculator (www.jiuzug-udf-bgbmauxtle.CloSys) to determine the patient's Mortality Risk Prognosis Performed By: #### L ACDS, TROPI, PRCAL, MYCM #### [facility] [address] [place] [address] 42919 Sedimentation Rateon 018 Sedimentation Rate 97 mm High 0-20 [facility] Comment on above: Performed By: #### L ACDS, TROPI, PRCAL, MYCM #### [facility] [address] [place] [address] 04700 CBC with Diffon 08-16-2018 Abs. Basophil 0.00 k/uL Normal 0.00-0.20 [facility] Comment on above: Performed By: #### L ACDS, TROPI, PRCAL, MYCM #### [address] [address] Abs.Imm.Granulocyte 0.11 k/uL Normal 0.00-0.30 [facility] Comment on above: Performed By: #### L ACDS, TROPI, PRCAL, MYCM #### [address] [address] Abs.Neutrophil (Seg) 4.60 k/uL Normal 1.50-8.10 [facility] Comment on above: Performed By: #### L ACDS, TROPI, PRCAL, MYCM #### [address] [address] Basophils/100 WBC (Bld) 0 % Normal 0-2 [facility] Comment on above: Performed By: #### L ACDS, TROPI, PRCAL, MYCM #### [address] [address] Eosinophils #/vol (Bld) 0.00 10*3/uL Normal 0.00-0.44 [facility] Comment on above: Performed By: #### L ACDS, TROPI, PRCAL, MYCM #### [address] 93068 Eosinophils/100 WBC (Bld) 0 % Low 1-4 [facility] Comment on above: Performed By: #### L ACDS, TROPI, PRCAL, MYCM #### [address] [address] Immature granulocytes #/vol (Bld) 2 % High 0 [facility] Comment on above: Performed By: #### L ACDS, TROPI, PRCAL, MYCM #### [address] [address] Lymphocytes #/vol (Bld) 0.67 10*3/uL Low 1.10-3.70 [facility] Comment on above: Performed By: #### L ACDS, TROPI, PRCAL, MYCM #### [address] [address] Lymphocytes/100 WBC (Bld) 12 % Low 24-43 [facility] Comment on above: Performed By: #### L ACDS, TROPI, PRCAL, MYCM #### [address] [address] Monocytes #/vol (Bld) 0.22 10*3/uL Normal 0.10-1.20 [facility] Comment on above: Performed By: #### L ACDS, TROPI, PRCAL, MYCM #### [address] [address] Monocytes/100 WBC (Bld) 4 % Normal 3-12 [facility] Comment on above: Performed By: #### L ACDS, TROPI, PRCAL, MYCM #### [address] [address] Morphology Interp Rehan (Bld) ANISOCYTOSIS PRESENT Normal [facility] Comment on above: Result Comment: INCR EASED BANDS PRESENT 1+ TEARDROPS Performed By: #### L ACDS, TROPI, PRCAL, MYCM #### [address] [address] Neutrophil (Seg) 82 % High 36-65 [facility] Comment on above: Performed By: #### L ACDS, TROPI, PRCAL, MYCM #### [facility] [employer] [address] [place] [address] 97414 Erythrocyte distribution width Ratio (RBC) 15.1 % High 11.8-14.4 [facility] Comment on above: Performed By: #### L ACDS, TROPI, PRCAL, MYCM #### [address] [address] Hematocrit Volume Fraction (Bld) 34.1 % Low 36.3-47.1 [facility] Comment on above: Performed By: #### L ACDS, TROPI, PRCAL, MYCM #### [facility] [address] [place] [address] 54046 Hemoglobin mass conc (Bld) 10.0 g/dL Low 11.9-15.1 [facility] Comment on above: Performed By: #### L ACDS, TROPI, PRCAL, MYCM #### [facility] [address] [place] [address] 91277 MCH Entitic mass (RBC) 28.7 pg Normal 25.2-33.5 [facility] Comment on above: Performed By: #### L ACDS, TROPI, PRCAL, MYCM #### [facility] [address] [place] [address] 32210 MCHC mass conc (RBC) 29.3 g/dL Normal 28.4-34.8 [facility] Comment on above: Performed By: #### L ACDS, TROPI, PRCAL, MYCM #### [facility] [address] [place] [address] 07144 MCV Entitic volume (RBC) 98.0 fL Normal 82.6-102.9 [facility] Comment on above: Performed By: #### L ACDS, TROPI, PRCAL, MYCM #### [facility] [address] [place] [address] 44908 NRBC Automated 0.0 per 100 WBC Normal 0.0 [facility] Comment on above: Performed By: #### L ACDS, TROPI, PRCAL, MYCM #### [facility] [address] [place] [address] 11702 Platelet mean volume Entitic volume (Bld) 11.1 fL Normal 8.1-13.5 [facility] Comment on above: Performed By: #### L ACDS, TROPI, PRCAL, MYCM #### [facility] [address] [place] [address] 26335 Platelets #/vol (Bld) 119 10*3/uL Low 138-453 [facility] Comment on above: Performed By: #### L ACDS, TROPI, PRCAL, MYCM #### [address] [address] RBC #/vol (Bld) 3.48 10*6/uL Low 3.95-5.11 [facility] Comment on above: Performed By: #### L ACDS, TROPI, PRCAL, MYCM #### [facility] [address] [place] [address] 87528 WBC #/vol (Bld) 5.6 10*3/uL Normal 3.5-11.3 [facility] Comment on above: Performed By: #### L ACDS, TROPI, PRCAL, MYCM #### [address] [address] Auto Diff Performed NOT REPORTED Normal [facility] Comment on above: Performed By: #### L ACDS, TROPI, PRCAL, MYCM #### [address] [address] Platelets #/vol (Bld) NOT REPORTED Normal [facility] Comment on above: Performed By: #### L ACDS, TROPI, PRCAL, MYCM #### [facility] [address] [place] [address] 87522 RBC morphology finding Nom (Bld) NOT REPORTED Normal [facility] Comment on above: Performed By: #### L ACDS, TROPI, PRCAL, MYCM #### [facility] [address] [place] [address] 91485 WBC Morphology NOT REPORTED Normal [facility] Comment on above: Performed By: #### L ACDS, TROPI, PRCAL, MYCM #### [facility] [address] [place] [address] CT HEAD WO CONTRASTon 2017 CT HEAD [...] IMPRESSION: No acute intracranial abnormality. Interpreted by: Eriac Angeles MD Signed by: Erica Angeles MD 08/16/18 Final result Normal [facility] Calcium, Ionicon 08-16-2018 Calcium mass conc 0.99 mmol/L Low 1.13-1.33 [facility] Comment on above: Performed By: #### L ACDS, TROPI, PRCAL, MYCM #### [facility] [address] [place] [address] Comp Metabolic Pr/rfx MGon 1 10-16-2017 (cont.) Normal [facility] Comment on above: Result Comment: Aver age GFR for 30-39 years old: 107 mL/min/1.73sq m Chronic Kidney Disease: <60 mL/min/1.73sq m Kidney failure: <15 mL/min/1.73sq m eGFR calculated using average adult body mass. Additional eGFR calculator available at: http://www.globalrph.CloSys/multiple_crcl_2012.htm Performed By: #### P T, CMPX, MG, CDP #### [facility] [address] [place] [address] 75574 Albumin mass conc 2.3 g/dL Low 3.5-5.2 [facility] Comment on above: Performed By: #### P T, CMPX, MG, CDP #### [facility] [address] [place] [address] 20167 Albumin/Globulin mass ratio 0.7 {ratio} Low 1.0-2.5 [facility] Comment on above: Performed By: #### P T, CMPX, MG, CDP #### [facility] [address] [place] [address] 56832 Alkaline Phos 67 U/L Normal 35-104 [facility] Comment on above: Performed By: #### P T, CMPX, MG, CDP #### [facility] [address] [place] [address] 72923 ALT enzyme act/vol 33 U/L Normal 5-33 [facility] Comment on above: Performed By: #### P T, CMPX, MG, CDP #### [facility] [address] [place] [address] 87446 Anion gap molar conc 11 mmol/L Normal 9-17 [facility] Comment on above: Performed By: #### P T, CMPX, MG, CDP #### [facility] [address] [place] [address] 09139 AST enzyme act/vol 41 U/L High <32 [facility] Comment on above: Performed By: #### P T, CMPX, MG, CDP #### [facility] [address] [place] [address] 42873 Bilirubin Ql (U) 0.40 mg/dL Normal 0.3-1.2 [facility] Comment on above: Performed By: #### P T, CMPX, MG, CDP #### [facility] [address] [place] [address] 83728 Calcium mass conc 7.3 mg/dL Low 8.6-10.4 [facility] Comment on above: Performed By: #### P T, CMPX, MG, CDP #### [address] [address] Chloride molar conc 105 mmol/L Normal 98-107 [facility] Comment on above: Performed By: #### P T, CMPX, MG, CDP #### [facility] [address] [place] [address] 06941 CO2 molar conc 18 mmol/L Low 20-31 [facility] Comment on above: Performed By: #### P T, CMPX, MG, CDP #### [facility] [address] [place] [address] 30513 Creatinine mass conc 1.09 mg/dL High 0.50-0.90 [facility] Comment on above: Performed By: #### P T, CMPX, MG, CDP #### [facility] [address] [place] [address] 53870 GFR, Amer >60 Normal >60 [facility] Comment on above: Performed By: #### P T, CMPX, MG, CDP #### [facility] [address] [place] [address] 59777 GFR,non Amer 56 mL/min Low >60 [facility] Comment on above: Performed By: #### P T, CMPX, MG, CDP #### [facility] [address] [place] [address] 70763 Glucose mass conc 128 mg/dL High 70-99 [facility] Comment on above: Performed By: #### P T, CMPX, MG, CDP #### [facility] [address] [place] [address] 24346 Potassium molar conc 3.6 mmol/L Low 3.7-5.3 [facility] Comment on above: Performed By: #### P T, CMPX, MG, CDP #### [facility] [address] [place] [address] 35532 Protein mass conc 5.5 g/dL Low 6.4-8.3 [facility] Comment on above: Performed By: #### P T, CMPX, MG, CDP #### [facility] [address] [place] [address] 76664 Sodium molar conc 134 mmol/L Low 135-144 [facility] Comment on above: Performed By: #### P T, CMPX, MG, CDP #### [facility] [address] [place] [address] 32812 Urea nitrogen mass conc 17 mg/dL Normal 6-20 [facility] Comment on above: Performed By: #### P T, CMPX, MG, CDP #### [facility] [address] [place] [address] 48636 BUN/CRE Ratio NOT REPORTED Normal -20 [facility] Comment on above: Performed By: #### P T, CMPX, MG, CDP #### [facility] [address] [place] [address] 31942 Staging: NOT REPORTED Normal [facility] Comment on above: Performed By: #### P T, CMPX, MG, CDP #### [facility] [address] [place] [address] 34530 Lactic Acid,Whole Blon 08-16 Lactic Acid,Whole Bl 1.2 mmol/L Normal 0.7-2.1 [facility] Comment on above: Performed By: #### L ACDS, TROPI, PRCAL, MYCM #### [address] [address] Lactic Acid,Whole Bl 1.2 mmol/L Normal 0.7-2.1 [facility] Comment on above: Performed By: #### L ACWB #### [address] [address] Magnesiumon 08-16-2018 Magnesium mass conc 2.0 mg/dL Normal 1.6-2.6 [facility] Comment on above: Performed By: #### L ACDS, TROPI, PRCAL, MYCM #### [address] [address] Mycoplasma Ab,IgMon 08-16-20 18 Mycoplasma Ab,IgM 0.22 Normal <0.91 [facility] Comment on above: Result Comment: Reference Range: <=0.90 Negative 0.91-1.09 Equivocal >=1.10 Positive Performed By: #### L ACDS, TROPI, PRCAL, MYCM #### [address] [address] PTon 08-16-2018 INR Coag RelTime (PPP) 1.0 {INR} Normal [facility] Comment on above: Result Comment: Therapeutic Range: Moderate Anticoagulant Intensity: INR = 2.0-3.0 High Anticoagulant Intensity: INR = 2.5-3.5 Performed By: #### P T, CMPX, MG, CDP #### [address] [address] Prothrombin time (PT) Coag time (PPP) 11.0 s Normal 9.0-12.0 [facility] Comment on above: Performed By: #### P T, CMPX, MG, CDP #### [address] [address] Troponinon 08-16-2018 Troponin I.cardiac mass conc Normal [facility] Comment on above: Result Comment: Refe [...] diagnosis. Performed By: #### T ROPI #### [facility] [address] [place] [address] 16723 Troponin I.cardiac mass conc ng/mL Normal <0.03 [facility] Comment on above: Result Comment: Trop onin T results cannot be compared to Troponin-I results. Performed By: #### T ROPI #### [address] [id number] XR CHEST (2 VW)on 08-16-2018 XR CHEST [...] Noe Mitchell MD 08/16/18 Final result Normal [facility] Lactate, Sepsison 08-15-2018 Lactic Acid,Sep Wbld 3.5 mmol/L High 0.5-1.9 [facility] Comment on above: Performed By: #### L ACDS, TROPI, PRCAL, MYCM #### [facility] [address] [place] [address] 34320 Lactic Acid, Sepsis NOT REPORTED Normal 0.5-1.9 [facility] Comment on above: Performed By: #### L ACDS, TROPI, PRCAL, MYCM #### [facility] [address] [place] [address] [id number] Legionella Ag, Uron 08-15-20 18 Legionella Ag, [...] this test. Report Status FINAL 08/15/2018 Normal [facility] Comment on above: Performed By: #### U LAG #### [facility] [address] [place] [address]608 Procalcitoninon 08-15-2018 Protein mass conc 3.39 ng/mL High <0.09 [facility] Comment on above: Result Comment: Suspected Sepsis: [...] entered into the Change in Procalcitonin Calculator (www.xcklsz-hud-rbwzruulay.com) to determine the patient's Mortality Risk Prognosis Performed By: #### L ACDS, TROPI, PRCAL, MYCM #### [facility] [place] [address] Strep pneum Ag,CSF/Uron 08-05 Strep pneum Ag,CSF/Ur Specimen Descripti on .CLEAN CATCH URINE Special Requests NOT REPORTED Direct Exam NEGATIVE: Strep pneumoniae antigen not detected Report Status FINAL 08/15/2018 Normal [facility] Comment on above: Performed By: #### S PAG #### [facility] [address] [place], [place] [id number] Troponinon 08-15-2018 Troponin I.cardiac mass conc ng/mL Normal <0.03 [facility] Comment on above: Result Comment: Trop onin T results cannot be compared to Troponin-I results. Performed By: #### L ACDS, TROPI, PRCAL, MYCM #### [facility] [address] [place], [place] [phone] Troponin I.cardiac mass conc Normal [facility] Comment on above: Result Comment: Refe [...] #### L ACDS, TROPI, PRCAL, MYCM #### [facility] [address] [place], [place] [id number] Urinalysison 11-18-2017 Bilirubin, Urine Negative Invalid Interpretation Code NEG;NEGATIVE [facility] Blood, Urine Moderate Abnormal NEG;NEGATIVE [facility] Interpretation and review of laboratory results Abnormal Invalid Interpretation Code [facility] Nitrite, Urine Negative Invalid Interpretation Code NEG;NEGATIVE [facility] Protein, Urine Negative Invalid Interpretation Code NEG;NEGATIVE mg/dL [facility] RBCs, Urine 1 /HPF Invalid Interpretation Code 0 - 5 [facility] Squamous Epithelial < 1 Invalid Interpretation Code 0 - 40 /HPF [facility] Urine, bacteria in sediment Rare Invalid Interpretation Code NS;RARE /HPF [facility] Urine, character Hazy Invalid Interpretation Code [facility] Urine, color Yellow Invalid Interpretation Code [facility] Urine, glucose presence Negative Invalid Interpretation Code NEG;NEGATIVE mg/dL [facility] Urine, ketones presence Negative Invalid Interpretation Code NEG;NEGATIVE mg/dL [facility] Urine, leukocyte esterase presence Small Abnormal Negative [facility] Urine, pH 6.0 [pH] Invalid Interpretation Code 4.5 - 8.0 [facility] Urine, specific gravity 1.014 1 Invalid Interpretation Code 1.003 - 1.029 [facility] Urobilinogen, Urine < 2.0 Invalid Interpretation Code <2 mg/dL [facility] WBCs, Urine 6 /HPF High 0 - 5 [facility] CBC and Differentialon 11-17 Basophils 0.7 % Invalid Interpretation Code [facility] Basophils 0.1 K/mcL Invalid Interpretation Code 0 - 0.2 [facility] Eosinophils 0.2 K/mcL Invalid Interpretation Code 0 - 0.5 [facility] Erythrocytes (RBC) 3.97 M/mcL Invalid Interpretation Code 3.7 - 5.0 [facility] Hematocrit (HCT) 35.7 % Invalid Interpretation Code 34.4 - 44.8 % [facility] Hemoglobin (HGB) 12.2 g/dL Invalid Interpretation Code 11.6 - 15.4 g/dL [facility] Interpretation and review of laboratory results Abnormal Invalid Interpretation Code [facility] Lymphocytes 2.1 K/mcL Invalid Interpretation Code 1.0 - 3.7 [facility] MCH 30.6 pg Invalid Interpretation Code 27.9 - 33.9 pg [facility] MCHC 34.0 g/dL Invalid Interpretation Code 33.1 - 35.1 g/dL [facility] MCV 89.8 fL Invalid Interpretation Code 82.6 - 98.9 [facility] Monocytes 0.6 K/mcL Invalid Interpretation Code 0.1 - 0.6 [facility] Neutrophils 6.6 K/mcL Invalid Interpretation Code 1.2 - 6.9 [facility] Platelet mean volume (PMV) 8.6 fL Invalid Interpretation Code 7.0 - 10.6 [facility] Platelets 196 K/mcL Invalid Interpretation Code 162 - 402 [facility] RDW-CA 15.0 % High 10 - 14.4 % [facility] Segmented Neut 69.6 % Invalid Interpretation Code [facility] T8 suppressor/100 cells 1.8 10*3/uL Invalid Interpretation Code [facility] T8 suppressor/100 cells 21.8 10*3/uL Invalid Interpretation Code [facility] T8 suppressor/100 cells 6.1 10*3/uL Invalid Interpretation Code [facility] WBC (Leukocytes) 9.5 K/mcL Invalid Interpretation Code 3.4 - 10.6 [facility] Comprehensive Metabolic Pane ananda 11-17-2017 Alanine aminotransferase (ALT) 18 U/L Invalid Interpretation Code 14 - 65 U/L [facility] Albumin 3.1 g/dL Low 3.2 - 5.2 g/dL [facility] Alkaline phosphatase (ALP) 78 U/L Invalid Interpretation Code 40 - 140 U/L [facility] Aspartate aminotransferase (AST) 7 U/L Invalid Interpretation Code 0 - 45 U/L [facility] Calcium 8.6 mg/dL Invalid Interpretation Code 8.4 - 10.2 mg/dL [facility] Chloride 106 mmol/L Invalid Interpretation Code 98 - 108 mmol/L [facility] CO2 27 mmol/L Invalid Interpretation Code 21 - 32 mmol/L [facility] Creatinine 1.13 mg/dL High 0.4 - 1.1 mg/dL [facility] eGFR (black) mL/min/{1.73_m2} Invalid Interpretation Code ml/min/1.73sq .m [facility] eGFR (non-black) 54 mL/min/{1.73_m2} Low >60 [facility] Glucose 113 mg/dL High 70 - 99 mg/dL [facility] Interpretation and review of laboratory results Abnormal Invalid Interpretation Code [facility] Potassium 3.7 mmol/L Invalid Interpretation Code 3.5 - 5.1 mmol/L [facility] Protein 6.8 g/dL Invalid Interpretation Code 6 - 8 g/dL [facility] Sodium 140 mmol/L Invalid Interpretation Code 135 - 145 mmol/L [facility] Urea nitrogen 17 mg/dL Invalid Interpretation Code 8 - 25 mg/dL [facility] Urine, bilirubin presence 0.4 mg/dL Invalid Interpretation Code 0.3 - 1.2 mg/dL [facility] Lipaseon 11-17-2017 Lipase 167 U/L Invalid Interpretation Code 73 - 393 U/L [facility] Vital Signs Date Time Vital Sign Value Performing Clinician Faci lity 03-03-2023 14:44-0400 Body temperature 98.49 [degF] MASSIMO Shook DPM Work Phone: [facility] 03-03-2023 14:44-0400 Diastolic blood pressure 87 mm[Hg] MASSIMO Shook DPM Work Phone: [facility] 03-03-2023 14:44-0400 Heart rate 94 /min MASSIMO Shook DPM Work Phone: [facility] 03-03-2023 14:44-0400 Systolic blood pressure 139 mm[Hg] MASSIMO Shook DPM Work Phone: [facility] 07-02-2022 09:36-0400 Body height 157.5 cm [facility] Work Phone: [facility] 07-02-2022 09:36-0400 Body mass index (BMI) [Ratio] 38.67 kg/m2 [facility] Work Phone: [facility] 07-02-2022 09:36-0400 Body weight 95.89 kg [facility] Work Phone: [facility] 09-16-2020 20:53-0500 BMI (Body Mass Index) 39.32 kg/m2 [facility] 09-16-2020 20:53-0500 Body Temperature 99.5 [degF] [place], [place] 09-16-2020 20:53-0500 Body weight 97.52 kg [facility] 09-16-2020 20:53-0500 BP Diastolic 109 mm[Hg] [facility] 09-16-2020 20:53-0500 BP Systolic 189 mm[Hg] [facility] 09-16-2020 20:53-0500 Height 157.5 cm [facility] 09-16-2020 20:53-0500 Pulse (Heart Rate) 99 /min [facility], [place] 09-16-2020 20:53-0500 Pulse Oximetry 96 % [facility] 09-16-2020 20:53-0500 Respiratory Rate 18 /min Robbin [facility] [place], [place] Encounters Encounter Date Encounter Type Care Provider Facility Start: 05-10-2024 End: 05-10-2024 ambulatory HEATHER [facility] Start: 05-10-2024 End: 05-10-2024 Subsequent hospital visit by physician Felipe Adam MD Work Phone: [facility] Start: 05-10-2024 End: 05-10-2024 ambulatory LORE VARGAS Not Available Start: 05-06-2024 End: 05-08-2024 ambulatory [facility] Start: 05-02-2024 End: 05-02-2024 ambulatory [facility]IPE BACK [facility] Start: 03-02-2024 End: 03-02-2024 ambulatory [facility] Start: 02-15-2024 End: 02-15-2024 ambulatory Frances Harris Facility:[facility] Start: 02-15-2024 End: 02-15-2024 ambulatory DPM Frances [facility] Work Phone: [facility] Work Phone: Start: 02-15-2024 End: 02-15-2024 Departed Referred DPM Frances [facility] Work Phone: [facility] Start: 02-10-2024 End: 02-10-2024 ambulatory [facility]IPE BACK [facility] Start: 01-29-2024 End: 01-29-2024 ambulatory [facility]IPE BACK [facility] Start: 10-29-2023 End: 10-29-2023 ambulatory TIFFANIE CASAS Not Available Start: 08-23-2023 End: 08-25-2023 ambulatory TIFFANIE CASAS [facility] Start: 08-20-2023 End: 08-20-2023 ambulatory TIFFANIE CASAS Not Available Start: 06-15-2023 End: 06-15-2023 Subsequent hospital visit by physician Felipe Adam MD Work Phone: [facility] Comment on above: Mixed hyperlipidemia Start: 06-15-2023 End: 06-17-2023 ambulatory [facility] Start: 05-17-2023 End: 05-17-2023 ambulatory [facility]ER[facility] Start: 04-03-2023 ambulatory FELIPE BACK [facility] Start: 03-03-2023 End: 03-07-2023 ambulatory ROBBIN SHOOK [facility] Ambulatory Start: 03-03-2023 End: 03-03-2023 Office outpatient new 45 minutes MASSIMO Shook DPM Work Phone: [facility] Comment on above: Charcot arthropathy of midfoot (Primary Dx); Gastrocnemius equinus, unspecified laterality; Foot pain, left Start: 02-11-2023 End: 02-12-2023 ambulatory FRANCES Weston [facility] Facility:H1 Start: 02-05-2023 End: 02-05-2023 Subsequent hospital visit by physician Felipe Adam MD Work Phone: [facility] Laboratory Comment on above: Pelvic pressure in f emale Start: 02-04-2023 End: 02-05-2023 ambulatory [facility]ES [facility] Facility:H1 Start: 01-28-2023 End: 01-29-2023 ambulatory [facility] Facility:H1 Start: 01-06-2023 End: 01-06-2023 Emergency department patient visit [facility] Start: 07-09-2022 End: 07-09-2022 Subsequent hospital visit by physician Samantha Lino RD, LD Work Phone: [facility] Diet and Nutrition Comment on above: Arrived Start: 07-02-2022 End: 07-02-2022 Subsequent hospital visit by physician [facility] Education Work Phone: [facility] Diabetic Education Start: 06-25-2022 End: 06-27-2022 Subsequent hospital visit by [facility] Additional Xray At [facility] Radiology Comment on above: Foreign body (FB) in soft tissue Start: 06-25-2022 End: 06-27-2022 Subsequent hospital visit by physician [facility] Mri Scanner [facility] MRI Comment on above: Pain of foot, unspec ified laterality; Closed nondisplaced fracture of second metatarsal bone of left foot, initial encounter; Closed nondisplaced fracture of lateral cuneiform of left foot, initial encounter Start: 05-27-2022 End: 2022 Subsequent hospital visit by physician [facility] Comment on above: Neck mass [...] Start: 02-04-2022 End: 02-04-2022 Patient encounter procedure [facility] [address] Start: 02-03-2022 End: 02-03-2022 Subsequent hospital visit by physician Hilaria Trujillo [facility] Start: 01-29-2022 End: 01-29-2022 Subsequent hospital visit by physician Beverly Rangel SAND MOLDER [facility] Comment on above: Arrived Start: 01-27-2022 End: 01-27-2022 Subsequent hospital visit by physician Christel Donohue PT [facility] Comment on above: Arrived Start: 01-24-2022 End: 01-24-2022 Subsequent hospital visit by physician Vanessa Garcia PT [facility] Comment on above: Arrived Start: 01-22-2022 End: 01-22-2022 Subsequent hospital visit by physician Beverly Rangel S[facility] MOLDER [facility] Start: 01-17-2022 End: 01-17-2022 Subsequent hospital visit by physician Beverly Rangel S[facility] MOLDER [facility] Comment on above: Arrived Start: 01-13-2022 End: 01-13-2022 Subsequent hospital visit by physician Christel Donohue PT [facility] Start: 01-03-2022 End: 01-03-2022 Subsequent hospital visit by physician Beverly Rangel S[facility] MOLDER [facility] Comment on above: Arrived [...] Arrived Start: 11-29-2021 End: 11-29-2021 ambulatory FELIPE [facility] Start: 08-01-2021 End: 08-01-2021 Subsequent hospital visit by physician Felipe Adam MD Work Phone: [facility] Comment on above: Frequent UTI; Urinary urgency; Urinary frequency Start: 07-11-2021 End: 07-11-2021 Subsequent hospital visit by physician Felipe Adam MD Work Phone: [facility] Comment on above: Frequent UTI; Urinary urgency; Urinary frequency Start: 06-11-2021 End: 06-11-2021 Subsequent hospital visit by physician Felipe Adam MD Work Phone: [facility] Comment on above: Acute cystitis with hematuria; Recurrent UTI Start: 05-27-2021 End: 05-27-2021 Subsequent hospital visit by physician Felipe Adam MD Work Phone: [facility] Comment on above: Difficult or painful urination Start: 05-20-2021 End: 05-20-2021 Subsequent hospital visit by physician Felipe Adam MD Work Phone: [facility] Start: 04-13-2021 End: 04-13-2021 Subsequent hospital visit by physician Felipe Adam MD Work Phone: [facility] Comment on above: Acute cystitis with hematuria Start: 02-13-2021 End: 02-13-2021 Subsequent hospital visit by physician [facility] Andriy19 Pat Screening Schedule [facility] Comment on above: Suspected COVID-19 v irus infection Start: 01-21-2021 End: 01-21-2021 Subsequent hospital visit by physician [facility] Bryantco19 Pat Screening Schedule [facility] Comment on above: Viral illness Start: 11-15-2020 End: 11-15-2020 Subsequent hospital visit by physician [place] [id number] Pat Screening Schedule [facility] Comment on above: Arrived Start: 09-16-2020 End: 09-16-2020 Emergency department patient visit Robbin Rooney Work Phone: [facility] ED Comment on above: Acute thoracic [...] MRSA (methicillin re sistant Staphylococcus aureus) septicemia ([facility]) Start: 09-24-2019 End: 09-24-2019 Subsequent hospital visit by physician Felipe Adam MD Work Phone: [facility] Start: 09-12-2019 End: 09-12-2019 Subsequent hospital visit by physician Felipe Aadm MD Work Phone: [facility] Start: 08-29-2019 End: 08-29-2019 Subsequent hospital visit by physician [facility] Schedule [facility] Comment on above: Arrived Start: 07-28-2019 End: 07-30-2019 Subsequent hospital visit by physician [place] Additional Xray [facility] Radiology Comment on above: MRSA (methicillin re sistant Staphylococcus aureus) septicemia (HCC) Start: 06-17-2019 End: 06-17-2019 Subsequent hospital visit by physician Felipe Adam [facility] Laboratory Comment on above: MRSA (methicillin re sistant Staphylococcus aureus) infection Start: 02-03-2019 End: 02-04-2019 Patient encounter procedure TIFFANIE CASAS [facility] Start: 02-03-2019 End: 02-03-2019 Subsequent hospital visit by physician Tiffanie Casas Work Phone: [facility] MRI Comment on above: Brachial neuritis; Peripheral nerve disorder; Spasm of muscle Start: 11-10-2018 End: 11-10-2018 Patient encounter procedure Andrey Early Facility:[facility] Start: 10-18-2018 End: 10-18-2018 Patient encounter procedure Andrey Early Work Phone: [facility] Start: 10-03-2018 Patient encounter procedure Dav Hartman Facility:[facility] Start: 10-03-2018 End: 10-03-2018 Patient encounter procedure [facility] Start: 09-20-2018 End: 09-21-2018 Patient encounter procedure Gosia Hartman Facility:[facility] Start: 09-20-2018 Patient encounter procedure Facility:[id number] Start: 09-13-2018 Patient encounter procedure GOSIA HARTMAN [facility] Start: 09-06-2018 End: 09-06-2018 Patient encounter procedure Historical Provider [facility] Start: 08-31-2018 End: 08-31-2018 Patient encounter procedure Historical [facility] Start: 08-27-2018 End: 08-28-2018 Patient encounter procedure Gosia Hartman Facility:[facility] Start: 08-27-2018 Patient encounter procedure Facility:[id number] Start: 08-15-2018 End: 08-25-2018 Evaluation and management of inpatient JV APPLE [facility] Start: 04-02-2018 End: 04-02-2018 Patient encounter procedure Melchor Calderon Facility:[facility] Start: 03-23-2018 Patient encounter procedure Shanice Juares Facility:[facility] Start: 02-04-2018 End: 02-04-2018 Ambulatory Melchor Weston K[facility] Start: 11-24-2017 Patient encounter procedure [facility] Start: 11-17-2017 End: 11-17-2017 Ambulatory Ceferino Corley Work Phone: [facility] Start: 10-20-2017 End: 10-20-2017 [facility] Start: 10-20-2017 Patient encounter procedure [facility] Start: 10-09-2017 Ambulatory [facility] Start: 10-09-2017 End: 10-09-2017 Patient encounter procedure [facility] Start: 09-16-2017 Patient encounter procedure [facility] Start: 08-03-2017 Ambulatory [facility] Start: 03-31-2017 End: 03-31-2017 Ambulatory SHANICE GOLDSTEIN MOR [facility] Procedures Date Procedure Procedure Detail [...] stick/tabl et rgnt auto w/o microscopy Gregory Fobres MD Work Phone: Start: 01-21-2021 COVID-19 Pattie Tafoya lliams MANAGER HOSPICE - FLIGHT ATTENDANT Work Phone: Start: 11-15-2020 COVID-19 GosiaTae flores [...] 09-24-2019 Hemoglobin glycosyla jamia a1c Janel Allen MANAGER HOSPICE - FLIGHT ATTENDANT Work Phone: Start: 09-24-2019 VITAMIN B12 & FOLATE Kevin Allen MANAGER HOSPICE - FLIGHT ATTENDANT Work Phone: Start: 07-28-2019 Radex spine cervical 4 or 5 views Azalea Knight Work Phone: Start: 07-28-2019 Blood count complete auto&auto difrntl wbc Azalea Knight MANAGER HOSPICE - FLIGHT ATTENDANT Work Phone: Start: 07-28-2019 C-reactive protein Azalea Knight MANAGER HOSPICE - FLIGHT ATTENDANT Work Phone: Start: 06-17-2019 Albumin serum plasma [...] Unless otherwise noted, all testing performed by [facility] Laboratories [facility] [address] [place], [place] [address] CLIA: [id number] [employer]: Harshad Solano M.D. Start: 09-06-2018 End: 09-06-2018 LABS (OUTSIDE) Historical Provider Start: 08-31-2018 End: 08-31-2018 LABS (OUTSIDE) Historical Provider Start: 08-25-2018 IP CONSULT TO HOME C ARE NEEDS JVMARISABEL APPLE Start: 08-25-2018 Assay of magnesium WASE EM APPLE Start: 08-25-2018 Basic metabolic pane l calcium total JV APPEL Start: 08-25-2018 Blood count complete auto&auto difrntl [...] APPLE Start: 08-22-2018 INCENTIVE SPIROMETRY RT JV EZCHARIAH Start: 08-22-2018 INITIATE OXYGEN THER APY PROTOCOL [...] JV APPLE Start: 08-21-2018 Procalcitonin (pct) WAS [facility] ZECHARIAH Start: 08-21-2018 PULSE OXIMETRY, CONTINUOUS JV [...] CONTINUOUS JV APPLE Start: 08-18-2018 TELEMETRY MONITORING [place] BRENDA APPLE Start: 08-18-2018 INCENTIVE SPIROMETRY RT [...] of 2) Shingles Vaccine (1 of 2) [facility] [place] [place] Start: 05-02-2029 Lipid panel Lipids [facility] Start: 04-12-2027 Lipid panel Lipids [facility] Start: 05-14-2026 Lipid panel [facility] Start: 05-25-2025 Lipid panel Lipid screen [place], [place] Start: 05-10-2025 GFR test (Diabetes, CKD 3-4, OR last GFR 15-59) GFR test (Diabetes, CKD 3-4, OR last GFR 15-59) [facility] Start: 05-02-2025 Hemoglobin A1c measurement A1C test (Diabetic or Prediabetic) [facility] Start: 01-27-2025 Depression Monitoring Depression Monitoring [facility] Start: 11-11-2024 End: 11-11-2024 Patient encounter procedure 11/11/2024 1:00 PM EST Office Visit [address] [phone] Felipe Adam MD [address] [place] [phone] [facility] Comment on above: 6 mo Start: 09-24-2024 Screening for malignant neoplasm of cervix [facility] Start: 09-08-2024 DTaP/Tdap/Td vaccine (2 - Td or Tdap) DTaP/Tdap/Td vaccine (2 - Td or Tdap) [facility] Start: 09-08-2024 DTaP/Tdap/Td vaccine (2 - Td) DTaP/Tdap/Td vaccine (2 - Td) [place], [place] Start: 09-08-2024 Tetanus vaccination [facility] Start: 08-18-2024 End: 08-18-2024 Patient encounter procedure 08/18/2024 1:30 PM EST Office Visit [facility] [address] [facility] [address] [place] [address] Luis Mclean, PA-C [address] [place] [address] [place] [address] 1 yr med chk [facility] Comment on above: 1 yr med chk Start: 05-17-2024 GFR test (Diabetes, CKD 3-4, OR last GFR 15-59) GFR test (Diabetes, CKD 3-4, OR last GFR 15-59) [facility] Start: 05-14-2024 Diabetes screen Diabetes screen [facility] Start: 05-12-2024 End: 05-12-2024 Patient encounter procedure 05/12/2024 11:00 AM EDT Office Visit [facility] Part of [address] [address] Lina Echols MD [address] [address] BUCK (obstructive sleep apnea) [facility] Part of [facility] Comment on above: BUCK (obstructive sleep apnea) Start: 05-11-2024 Lipid panel Lipid screen [place], [place] Start: 05-11-2024 Lipid screen Lipid screen [place], [place] Start: 05-05-2024 Influenza vaccination Flu vaccine (#1) [facility] Start: 03-23-2024 Depression Monitoring Depression Monitoring [facility] Start: 02-06-2024 GFR test (Diabetes, CKD 3-4, OR last GFR 15-59) GFR test (Diabetes, CKD 3-4, OR last GFR 15-59) [facility] Start: 02-06-2024 Hemoglobin A1c measurement A1C test (Diabetic or Prediabetic) [facility] Start: 08-13-2023 End: 08-13-2023 [facility] Start: 06-22-2023 End: 06-22-2023 Patient encounter procedure 06/22/2023 11:15 AM EDT Office Visit [facility] [address] [place] [address] Felipe Adam MD [address] [place] [address] [facility] Start: 06-05-2023 Influenza vaccination Sequential Influenza Vaccine (Season Ended) [facility] Start: 05-05-2023 Influenza vaccination [facility] Start: 04-14-2023 End: 04-14-2023 Patient encounter procedure 04/14/2023 Office Visit Family Medicine Felipe Adam MD [address] [place] [address] [facility] Start: 04-12-2023 Hemoglobin A1c measurement A1C test (Diabetic or Prediabetic) [facility] Start: 04-11-2023 Depression Monitoring Depression Monitoring [facility] Start: 04-11-2023 History and physical examination, annual for health maintenance Wellness Visit [facility] Start: 12-25-2022 End: 12-25-2022 Patient encounter procedure 12/25/2022 Office Visit Infectious Diseases Dav Hartman MD [address] [address] [facility]. Start: 09-24-2022 Diabetes screen Diabetes screen [place], [place] Start: 08-07-2022 End: 08-07-2022 Patient encounter procedure 08/07/2022 Office Visit Urology Luis Mclean, PA-C [address] [place] [address] [facility] [place] [address] [facility] Start: 07-15-2022 End: 07-15-2022 Nursing evaluation of patient and report 07/15/2022 Nurse Only Family Medicine [facility] Start: 07-09-2022 End: 07-09-2022 Patient encounter procedure 07/09/2022 Appointment IP Unit Samantha Lino RD, LD [facility] Diet and Nutrition Start: 06-05-2022 Influenza vaccination [facility] Start: 05-20-2022 Creatinine measurement [facility] Start: 05-20-2022 Potassium [Moles/volume] in Serum or Plasma Potassium [facility] Start: 05-20-2022 Potassium monitoring Potassium monitoring [facility] Start: 05-14-2022 Creatinine measurement Creatinine monitoring [facility] Work Phone: Start: 05-14-2022 Potassium monitoring Potassium monitoring [facility] Work Phone: Start: 05-05-2022 Influenza vaccination Flu vaccine (#1) [facility] Start: 02-05-2022 End: 02-05-2022 Patient encounter procedure 02/05/2022 Appointment Physical Therapy Christel Donohue, PT [facility] Start: 02-03-2022 End: 02-03-2022 Patient encounter procedure [facility] Start: 01-30-2022 End: 01-30-2022 Patient encounter procedure [facility] Start: 01-29-2022 End: 01-29-2022 Patient encounter procedure 01/29/2022 Appointment Physical Therapy Beverly Rangel SAND MOLDER [facility] Start: 01-27-2022 End: 01-27-2022 Patient encounter procedure 01/27/2022 Appointment Physical Therapy Christel Donohue, PT [facility] Start: 01-24-2022 End: 01-24-2022 Patient encounter procedure 01/24/2022 Appointment Physical Therapy Vanessa Garcia, PT [facility] Start: 01-22-2022 End: 01-22-2022 Patient encounter procedure 01/22/2022 Appointment Physical Therapy Beverly Rangel, SAND MOLDER [facility] Start: 01-17-2022 End: 01-17-2022 Patient encounter procedure 01/17/2022 Appointment Physical Therapy Beverly Rangel S[facility] MOLDER [facility] Start: 01-10-2022 End: 01-10-2022 Patient encounter procedure 01/10/2022 Appointment Physical Therapy Christel Donohue, PT [facility] Start: 01-08-2022 End: 01-08-2022 Patient encounter procedure 01/08/2022 Appointment Physical Therapy Beverly Rangel, SAND MOLDER [facility] Start: 01-02-2022 End: 01-02-2022 Patient encounter procedure 01/02/2022 Appointment Occupational Therapy Judi Marie OTA [address] [place] [address] [facility] Start: 12-31-2021 Diabetes screen Diabetes screen [facility] Start: 12-31-2021 End: 12-31-2021 Patient encounter procedure [facility] Physica l Therapy Start: 12-30-2021 End: 12-30-2021 Patient encounter procedure 12/30/2021 Appointment Occupational Therapy Lore Herman OT [facility] Start: 12-27-2021 End: 12-27-2021 Patient encounter procedure 12/27/2021 Appointment Occupational Therapy Eve Gaspar OTA [facility] Start: 11-14-2021 End: 11-14-2021 Patient encounter procedure 11/14/2021 Office Visit Felipe Hampton MD [address] [place] [address] [facility] Start: 10-29-2021 Depression Monitoring Depression Monitoring [employer] Start: 09-16-2021 Creatinine measurement Creatinine monitoring [employer] Phone: Start: 09-16-2021 Potassium monitoring Potassium monitoring [employer] Phone: Start: 08-01-2021 End: 08-01-2021 Patient encounter procedure 08/01/2021 Office Visit Urology Lita Weeks MD [address] [place] [address], [facility] [address] [place] [address] [facility] Start: 06-05-2021 Influenza vaccination [employer] Start: 05-25-2021 Creatinine measurement Creatinine monitoring [email or web address] [place] Start: 05-25-2021 HbA1c (Bld) [Mass fraction] A1C test (Diabetic or Prediabetic) [email or web address] [place], [place] Start: 05-25-2021 Hemoglobin A1c measurement A1C test (Diabetic or Prediabetic) [employer] Phone: Start: 05-25-2021 Potassium monitoring Potassium monitoring [facility] [place], [place] Start: 11-13-2020 End: 11-13-2020 Office Visit 11/13/2020 Office Visit Felipe Hampton MD [address] [place] [address] [phone] [facility] Start: 11-02-2020 Potassium monitoring Potassium monitoring [place], [place] Start: 10-23-2020 End: 10-23-2020 Office Visit 10/23/2020 Office Visit Infectious Diseases Dav Hartman MD [address] [place], [place] [id number] [facility], [employer] [facility]. Start: 09-24-2020 HbA1c (Bld) [Mass fraction] A1C test (Diabetic or Prediabetic) [place], [place] Start: 06-17-2020 Creatinine measurement Creatinine monitoring [place], [place] Start: 06-17-2020 Creatinine monitoring Creatinine monitoring [place], [place] Start: 06-17-2020 Potassium monitoring Potassium monitoring [place], [place] Start: 06-12-2020 End: 06-12-2020 Office Visit 06/12/2020 Office Visit Infectious Diseases Dav Hartman MD [address] [place] [address] [phone] [facility] Start: 06-05-2020 Influenza vaccination Flu vaccine (#1) [place] Start: 03-20-2020 Cervical cancer screen Cervical cancer screen [place], [place] Start: 03-20-2020 Screening for malignant neoplasm of cervix [facility] Start: 11-01-2019 End: 11-01-2019 Office Visit 11/01/2019 Office Visit Infectious Diseases Dav Hartman MD [address] [place] [address] [phone] [facility] Start: 07-28-2019 End: 07-28-2019 Office Visit 07/28/2019 Office Visit Dav Gay MD [address] [place], [place] [id number] [facility] Start: 06-27-2019 End: 06-27-2019 Nurse Only 06/27/2019 Nurse Only Family Medicine [facility] Start: 06-05-2019 Influenza vaccination Flu vaccine (#1) [place], [place] Start: 06-05-2019 Influenza vaccination given SEQUENTIAL INFLUENZA VACCINE (Season Ended) [facility] Start: 2019 Screening for malignant neoplasm of breast [facility] Start: 06-05-2018 Influenza vaccination INFLUENZA VACCINE (#1) [facility] Work Phone: Start: 03-23-2018 End: 03-23-2018 Ambulatory [facility] Start: 2009 Screening for malignant neoplasm of cervix HPV (without or with Pap) [facility] Start: 2000 Screening for malignant neoplasm of cervix PAP SMEAR DISCUSSION [facility] Work Phone: Start: 1998 Third diphtheria, tetanus and acellular pertussis (DTaP) vaccination TDAP (ADULT) [facility] Work Phone: Start: 1997 Hepatitis C screening [facility]atitis C Screening [facility] [facility] Start: 1997 Tetanus vaccination TETANUS [facility] Work Phone: Start: 1995 COVID-19 Vaccine (1) COVID-19 Vaccine (1) [facility] Work Phone: Start: 1994 HIV screen HIV screen [place], [place] Start: 1994 HIV screening HIV screen [facility] Start: 1992 HIV screening HIV SCREENING DISCUSSION [facility] Work Phone: Start: 1991 COVID-19 Vaccine (1) COVID-19 Vaccine (1) [facility] Work Phone: Start: 1991 Depression Monitoring Depression Monitoring [facility] Start: 1991 Depression screening using PHQ-9 (Patient Health Questionnaire 9) score Depression Screening (PHQ-2/9) [facility] Start: 1989 Urine screening for protein Urine Microalbumin [facility] Start: 1985 Pneumococcal Vaccine: Ped or At-Risk (1 - PCV) Pneumococcal Vaccine: Ped or At-Risk (1 - PCV) [facility] Start: 1984 COVID-19 Vaccine (1) COVID-19 Vaccine (1) [facility] [employer] Start: 1982 History and physical examination, annual for health maintenance Wellness Visit [facility] Start: 1979 COVID-19 Vaccine (#1) COVID-19 [facility]ine (#1) [facility]: [facility] Hepatitis B vaccine (1 of 3 - 3-dose series) Hepatitis B vaccine (1 of 3 - 3-dose series) [facility] [employer] End: 02-13-2021 COVID-19 COVID-19 Lab Routine Suspected COVID-19 virus infection 1 Occurrences starting 02/13/2021 until 02/13/2021 [employer] Phone: Comment on above: 1 Occurrences starting 02/13/2021 until 02/13/2021 COVID-19 COVID-19 Lab Rou luis Suspected COVID-19 virus infection 02/13/2021 3:06 PM EDT [employer] Phone: End: 08-08-2020 COVID-19 Ambulatory COVID-19 Ambulatory Lab Routine SOB (shortness of breath) 1 Occurrences starting 08/08/2020 until 08/08/2020 [facility] [place] Comment on above: 1 Occurrences starting 08/08/2020 until 08/08/2020 COVID-19 Ambulatory COVID-19 Amb ulatory Lab Routine SOB (shortness of breath) 08/08/2020 4:02 PM EST [facility] [place] [place] End: 05-20-2021 Creatinine [Mass/volume] in Urine Creatinine, Random Urine Lab Routine Once for 1 Occurrences starting 05/20/2021 until 05/20/2021 [employer] Phone: Comment on above: Once for 1 Occurrences starting 05/20/20 21 until 05/20/2021 Creatinine [Mass/vol ume] in Urine Creatinine, Random Urine Lab Routine 05/20/2021 7:57 PM EDT [employer] Phone: End: 04-13-2021 Culture, Urine Culture, Urine Microbiology Routine Acute cystitis with hematuria 1 Occurrences starting 04/13/2021 until 04/13/2021 [employer] Phone: Comment on above: 1 Occurrences starting 04/13/2021 until 04/13/2021 Culture, Urine [employer] Phone: End: 05-27-2021 Culture, Urine Culture, Urine Microbiology Routine Difficult or painful urination 1 Occurrences starting 05/27/2021 until 05/27/2021 [employer] Phone: Comment on above: 1 Occurrences starting 05/27/2021 until 05/27/2021 End: 06-11-2021 Culture, Urine Culture, Urine Microbiology Routine Acute cystitis with hematuria Recurrent UTI 1 Occurrences starting 06/11/2021 until 06/11/2021 [employer] Phone: Comment on above: 1 Occurrences starting 06/11/2021 until 06/11/2021 End: 07-11-2021 Culture, Urine Culture, Urine Microbiology Routine Frequent UTI Urinary urgency Urinary frequency 1 Occurrences starting 07/11/2021 until 07/11/2021 [employer] Phone: Comment on above: 1 Occurrences starting 07/11/2021 until 07/11/2021 End: 08-01-2021 Culture, Urine Culture, Urine Microbiology Routine Frequent UTI Urinary urgency Urinary frequency 1 Occurrences starting 08/01/2021 until 08/01/2021 [employer] Phone: Comment on above: 1 Occurrences starting 08/01/2021 until 08/01/2021 End: 04-28-2022 Culture, Urine Culture, Urine Microbiology Routine Acute cystitis with hematuria 1 Occurrences starting 04/28/2022 until 04/28/2022 [email or web address] Phone: Comment on above: 1 Occurrences starting 04/28/2022 until 04/28/2022 End: 02-05-2023 Culture, Urine [email or web address] Phone: Comment on above: 1 Occurrences starting 02/05/2023 until 02/05/2023 End: 04-12-2022 Hemoglobin A1c/Hemoglobin.total in Blood [email or web address] Phone: Comment on above: 1 Occurrences starting 04/12/2022 until 04/12/2022 End: 02-05-2023 Hemoglobin A1c/Hemoglobin.total in Blood [email or web address] Phone: Comment on above: Once for 1 Occurrences starting 02/06/20 until 02/05/2023 End: 08-29-2019 Home Sleep Study Home Sleep Study Sleep Center Routine One Time for 1 Occurrences starting 08/29/2019 until 08/29/2019 [email or web address] Comment on above: One Time for 1 Occurrences starting 08/06 until 08/29/2019 End: 09-24-2019 Methylmalonic Acid, Serum Methylmalonic Acid, Serum Lab Routine Once for 1 Occurrences starting 09/24/2019 until 09/24/2019 [employer] Phone: Comment on above: Once for 1 Occurrences starting 09/24/20 until 09/24/2019 Methylmalonic Acid, Serum Methyl malonic Acid, Serum Lab Routine 09/24/2019 9:33 AM [employer] Phone: End: 09-24-2019 Nuclear Ab [Titer] in Serum by Immunofluorescence ALICJA Lab Routine Once for 1 Occurrences starting 09/24/2019 until 09/24/2019 [employer] Phone: Comment on above: Once for 1 Occurrences starting 09/24/20 until 09/24/2019 Nuclear Ab [Titer] i n Serum by Immunofluorescence ALICJA Lab Routine 09/24/2019 9:33 AM [employer] Phone: End: 05-20-2021 Protein, urine, random Protein, urine, random Lab Routine Once for 1 Occurrences starting 05/20/2021 until 05/20/2021 [employer] Phone: Comment on above: Once for 1 Occurrences starting 05/20/20 until 05/20/2021 Protein, urine, random Protein, urine, random Lab Routine 05/20/2021 7:57 PM EDT [employer] Phone: End: 12-14-2019 Sedimentation Rate Sedimentation Rate Lab Routine MRSA (methicillin resistant Staphylococcus aureus) septicemia (HCC) 1 Occurrences starting 12/14/2019 until 12/14/2019 [employer] Comment on above: 1 Occurrences starting 12/14/2019 until 12/14/2019 Sedimentation Rate Sedimentation Rate Lab Routine MRSA (methicillin resistant Staphylococcus aureus) septicemia (HCC) 12/14/2019 12:39 PM EDT [employer] [place] End: 09-24-2019 Sjogrens syndrome-A extractable nuclear antibody Sjogrens syndrome-A extractable nuclear antibody Lab Routine Once for 1 Occurrences starting 09/24/2019 until 09/24/2019 [employer] Phone: Comment on above: Once for 1 Occurrences starting 09/24/20 19 until 09/24/2019 Sjogrens syndrome-A extractable nuclear antibody Sjogrens syndrome-A extractable nuclear antibody Lab Routine 09/24/2019 9:33 AM [employer] Phone: End: 09-24-2019 Sjogrens syndrome-B extractable nuclear antibody Sjogrens syndrome-B extractable nuclear antibody Lab Routine Once for 1 Occurrences starting 09/24/2019 until 09/24/2019 [employer] Phone: Comment on above: Once for 1 Occurrences starting 09/24/20 19 until 09/24/2019 Sjogrens syndrome-B extractable nuclear antibody Sjogrens syndrome-B extractable nuclear antibody Lab Routine 09/24/2019 9:33 AM [employer] Phone: End: 09-12-2019 Sleep Study with PAP Titration Sleep Study with PAP Titration Sleep Center Routine One Time for 1 Occurrences starting 09/12/2019 until 09/12/2019 [employer] Phone: Comment on above: One Time for 1 Occurrences starting 06/2019 until 09/12/2019 End: 09-24-2019 Vitamin B6 Vitamin B6 Lab Routine Once for 1 Occurrences starting 09/24/2019 until 09/24/2019 [employer] Phone: Comment on above: Once for 1 Occurrences starting 09/24/20 19 until 09/24/2019 Vitamin B6 Vitamin B6 Lab R outine 09/24/2019 9:33 AM EST [employer] Phone: Immunizations Immunization Date Immunization Notes Care Provider Yair dai 09-08-2014 tetanus toxoid, redu gaby diphtheria toxoid, and acellular pertussis vaccine, adsorbed Felipe Back [employer] [place] Payers Date Payer Category Payer Self-pay [id number] 2017 Unknown 2016 Unknown [id number] 2016 Unknown xxxxxxxxxxxxxxx [id number] 2014 Medicaid [id number] [id number] 2014 Medicaid [employer] [facility] MEDICA[facility] [employer] xxxxxxxxxxx 2014-Present xxxxxxxxxxx [id number] [id number] 1979 Unknown [id number] 2.16.840.1.216046.3.579.2.356 1979 Unknown [id number] 2.16840.1.555684.3.579.2.356 1979 Unknown [id number] 2.16.840.1.960500.3.579.2.717 1979 Unknown [id number] 2.16.840.1.754182.3.579.2.717 1979 Unknown [id number] 2.16.840.1.558632.3.579.2.175 1979 Unknown [id number] 2.16.840.1.741663.3.579.2.903 1979 Unknown [id number] 2.16.840.1.975847.3.579.2.182 1979 Unknown [id number] 2.16.840.1.582260.3.579.2.185 1979 Unknown [id number] 2.16.840.1.547267.3.579.2.903 1979 Unknown [id number] 2.16.840.1.838101.3.579.2.593 1979 Unknown [id number] 2.16.840.1.015035.3.579.2.593 1979 Unknown [id number] 2.16.840.1.322356.3.579.2.593 1979 Unknown [id number] 2.16.840.1.968562.3.579.2.903 1979 Unknown [id number] 2.16.840.1.244146.3.579.2.903 1979 Unknown [id number] 2.16.840.1.833889.3.579.2.903 1979 Unknown [id number] 2.16.840.1.275213.3.579.2.1259 1979 Unknown [id number] 2.16.840.1.301960.3.579.2.1259 1979 Unknown [id number] 2.16.840.1.549090.3.579.2.1259 1979 Unknown [id number] 2.16.840.1.066629.3.579.2.174 1979 Unknown [id number] 2.16.840.1.905596.3.579.2.174 1979 Unknown [id number] 2.16.840.1.141471.3.579.2.174 1979 Unknown [id number] 2.16.840.1.533062.3.579.2.174 1979 Unknown [id number] 2.16.840.1.324499.3.579.2.174 1979 Unknown [id number] 2.16.840.1.787877.3.579.2.174 1979 Unknown [id number] 2.16.840.1.848808.3.579.2.174 1979 Unknown [id number] 2.16.840.1.207385.3.579.2.174 1979 Unknown [id number] 2.16.840.1.445240.3.579.2.174 1979 Unknown [id number] 2.16.840.1.462402.3.579.2.174 1979 Unknown [id number] 2.16.840.1.501842.3.579.2.174 1959 Unknown [id number] 1.2.840.687145.1.13.239.2.7.3.6 [id number] Unknown 114 Unknown [id number] 2.16.840.1.342834.3.579.2.531 Social History Date Type Detail Facility Start: 05-01-2015 End: 08-13-2023 Tobacco smoking status MEIS Never smoker [employer] Work Phone: Start: 1980 Sex Assigned At Not on file O [facility] Work Phone: Start: 05-27-2019 End: 05-08-2024 Alcohol intake No [place], [place] Start: 12-13-2019 End: 05-09-2024 Alcohol intake Current non-drinker of alcohol (finding) [place], [place] Start: 12-09-2019 End: 05-13-2021 History SDOH Financial 4 [place], [place] Start: 12-09-2019 End: 05-20-2022 History SDOH Food Worry 1 [place], [place] Start: 12-09-2019 History SDOH Transpo rt Med 2 [place], [place] Start: 05-11-2020 End: 08-13-2023 Tobacco use and exposure Never used [employer] [place] [place] Start: 10-30-2021 End: 03-02-2023 Exposure to SARS-CoV-2 (event) Not sure [employer] [place] Start: 1980 Sex Assigned At Female F [facility] Start: 05-20-2022 History SDOH Financial 3 [facility] Work Phone: Start: 01-06-2023 End: 05-08-2024 History of Social function [facility] How hard is it for y ou to pay for the very basics like food, housing, medical care, and heating Not very hard [facility] Patient Health Questionnaire 9 item (PHQ-9) total score [Reported] 0 [facility] (I/We) worried wheyaritza er (my/our) food would run out before (I/we) got money to buy more. Never true [facility] At any time in the p ast 12 months, were you homeless or living in correction [including now]? No [facility] Start: 10-09-2020 Gender identity Identifies as female gender (finding) [facility] Start: 10-09-2020 Sexual orientation Heterosexual (fin ding) [facility] How hard is it for y ou to pay for the very basics like food, housing, medical care, and heating Somewhat hard [facility] NEGATED: Highlighted rowStart: NINF History of tobacco use Passive smoker [facility] Clinical Notes 12-23-2021 to 03-03-2023 MASSIMO Shook [...] She follows with an outside provider in [place] and was immobilized for an extended period [...] & Ankle Surgery documented in this encounter [facility] 01-29-2023 Note PROCEDURE: XR ANKLE LT [...] authenticated by: PIPER MERCEDES Date: 2023-01-29 07:05 [facility] 01-29-2023 Note PROCEDURE: XR ANKLE LT MIN [...] authenticated by: PIPER MERCEDES Date: 2023-01-29 07:05 [facility] 07-09-2022 History of Present illness Narrative MNT [...] BMR: 1573 calories Est. total calorie needs: ~5073-0995 Lab Results Component Value Date/Time TRIG 460 [...] minutes. documented in this encounter [employer] Phone: 02-05-2022 History of Present illness Narrative [facility] Date: 02/05/2022 Patient Name: Celina Gaspar : 1980 Pt No Showed Appt- Follow up call, left message on voicemail that patient discharged, but to call if has questions or concerns. Christel Donohue, PT Date: 02/05/2022 documented in this encounter [employer] Phone: 02-05-2022 Hospital course Narrative Images from the original note were not included. [facility] Discharge Summary Patient: [...] PT Date: 02/05/2022 [facility] Phone: 02-03-2022 History of Present illness Narrative [facility] Date: 02/03/2022 Patient Name: Celina Gaspar : 1980 Pt Cancelled Appt due to no reason for cancel. Jerica Melgar Date: 02/03/2022 documented [facility] this encounter [facility] Phone: 01-29-2022 History of Present illness Narrative Images from the original note were not included. 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 Message left on answering machine with a reminder of her next appointment on Thursday. Beverly Rangel, JENNIFER Date: 01/22/2022 documented in this encounter [employer] Phone: 01-17-2022 History of Present illness Narrative Images from the original note were not included. [facility] Daily Note Date: 01/17/2022 Patient Name: Celina Gaspar : 1980 (41 y.o.) Referring Practitioner: Liliane Sawyer APRN, FLIGHT ATTENDANT Referral Date : 12/19/21 Diagnosis: Lumbar radiculopathy [...] 4: Increase trunk ROM B rotation WFL Halfway Goals - Time Frame for terminal clerk goals : 10 terminal clerk goal 1: Decrease pain low back 2/10 at worst x3 days for completing normal activities alf goal 2: Patient to report 50% decrease in radicular symptoms L LE Post Treatment Pain: 5/10 Time In: 1037 Time Out: 1107 Timed Code Treatment Minutes: 30 Minutes Total Treatment Time: 30 Minutes Beverly Rangel PTA Date: 01/17/2022 documented in this encounter [employer] Phone: 01-13-2022 History of Present illness Narrative [facility] Date: 01/13/2022 Patient Name: Celina Phand : 1980 Pt Cancelled Appt due to no reason given. NABILA Metzger Date: 01/13/2022 documented in this encounter [employer] Phone: 01-03-2022 History of Present illness Narrative Images from the original note were not included. [facility] Daily Note Date: [...] 4: Increase trunk ROM B rotation WFL Halfway Goals - Time Frame for alf goals : 10 alf goal 1: Decrease pain low back 2/10 at worst x3 days for completing normal activities alf goal 2: Patient to report 50% decrease in radicular symptoms L LE Post Treatment Pain: 5/10 Time In: 0948 Time Out: 1028 Timed Code Treatment Minutes: 40 Minutes Total Treatment Time: 40 Minutes Beverly Rangel, JENNIFER Date: 01/03/2022 documented in this encounter [employer] Phone: 12-31-2021 History of Present illness Narrative Images from the original note were not included. 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 Time Frame for terminal clerk goals : 12 visits (01/24/2022) terminal clerk goal 1: pt to be indepenent in HEP-MET terminal clerk goal 2: Pt to demonstrate R wrist flexion to 65 degrees or more in order to engage in daily tasks-MET alf goal 3: Pt to demonstrate R wrist extension to 60 degrees or more in order to engage in daily tasks-MET terminal clerk goal 4: Pt to be educated on carpal tunnel do's & dont's in order to prevent further repetitive injury to wrist-MET Timed Code Treatment Minutes: 30 Minutes Time In: 915 Time Out: 945 Timed Coded Minutes: 30 Total Treatment Time: 30 THERESA Houser, OTR/L Date: 12/31/2021 documented in this encounter [employer] Phone: 12-31-2021 Hospital course Narrative Images from the original note were not included. 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 Therapist provided pt with handout on Carpal Tunnel Dos & Dont's to avoid re-injury. Prognosis: Fair Goals Short Term Goals Time Frame for Short term goals: STG=LTG Halfway Goals Time Frame for terminal clerk goals : 12 visits (01/24/2022) terminal clerk goal 1: pt to be indepenent in HEP-MET terminal clerk goal 2: Pt to demonstrate R wrist flexion to 65 degrees or more in order to engage in daily tasks-MET alf goal 3: Pt to demonstrate R wrist extension to 60 degrees or more in order to engage in daily tasks-MET alf goal 4: Pt to be educated on carpal tunnel do's & dont's in order to prevent further repetitive injury to wrist-MET Reason for Discharge [] Poor Follow Through [] Completion of Prescribed Sessions [x] Optimal Function Achieved [] Patient Discharged Self [x] Goals Achieved Comments: Thank you for this referral THERESA Houser, OTR/L Date: 12/31/2021 documented in this encounter [employer] Phone: 12-31-2021 History of Present illness Narrative Images from the original note were not included. [facility] Evaluation Date: 12/31/2021 [...] 4: Increase trunk ROM B rotation WFL terminal clerk goals Time Frame for terminal clerk goals : 10 alf goal 1: Decrease pain low back 2/10 at worst x3 days for completing normal activities alf goal 2: Patient to report 50% decrease in radicular symptoms L LE Patient's Goal: Decrease back pain to complete normal activities Timed Code Treatment Minutes: 15 Minutes Total Treatment Time: 45 Time In: 8:30 Time Out: 9:15 Christel Donohue, PT Date: 12/31/2021 documented in this encounter [employer] Phone: 12-30-2021 History of Present illness Narrative Images from the original note were not included. [facility] Daily Note Date: [...] Time Frame for Short term goals: STG=LTG Halfway Goals Time Frame for terminal clerk goals : 12 visits (01/24/2022) terminal clerk goal 1: pt to be indepenent in HEP-MET alf goal 2: Pt to demonstrate R wrist flexion to 65 degrees or more in order to engage in daily tasks-MET alf goal 3: Pt to demonstrate R wrist extension to 60 degrees or more in order to engage in daily tasks-MET terminal clerk goal 4: Pt to be educated on carpal tunnel do's & dont's in order to prevent further repetitive injury to wrist-MET Time In: 835 Time Out: 915 Timed Coded Minutes: 40 Total Treatment Time: 40 THERESA Houser, OTR/L Date: 12/30/2021 documented in this encounter [employer] Phone: 12-23-2021 History of Present illness Narrative Images from the original note were not included. [facility] Evaluation Date: 12/23/2021 [facility] 1980 [id number] Referring Practitioner: Keenan Lozano MD Diagnosis: Rt [...] completing these mvmts Left Hand Strength - Grain Buyer (lbs) Handle Setting 2: 54#, 50#, 53# (52.3# ave) Left Hand Strength - Pinch (lbs) Lateral: 13.5# Tip: 8# Palmar 3 point: 11# Right Hand Strength - Grain Buyer (lbs) Handle Setting 2: 53#, 54#, 53# [...] Time Frame for Short term goals: STG=LTG alf goals Time Frame for alf goals : 12 visits (01/24/2022) alf goal 1: pt to be indepenent in HEP alf goal 2: Pt to demonstrate R wrist flexion to 65 degrees or more in order to engage in daily tasks alf goal 3: Pt to demonstrate R wrist extension to 60 degrees or more in order to engage in daily tasks alf goal 4: Pt to be educated on carpal tunnel do's & dont's in order to prevent further repetitive injury to wrist Patient's Goal: pt wishes to return to prior function Time In: 830 Time Out: 924 Timed Coded Minutes: 0 Total Treatment Time: 54 THERESA Houser, OTR/Matthew 12/23/2021 documented in this encounter [employer] Phone: Evaluation note Diagnosis Viral illness Unspecified viral infection, in conditions classified elsewhere and of unspecified site documented in this encounter [employer] Phone: evalsqwzej note* Diagnosis Suspected COVID-19 virus infection documented in this encounter [employer] Phone: evaluation note* Diagnosis Acute cystitis with hematuria Acute cystitis documented in this encounter [employer] Phone: evaluation note* Diagnosis Difficult or painful urination Dysuria documented in this encounter [employer] Phone: evaluation note* Diagnosis Acute cystitis with hematuria Acute cystitis Recurrent UTI Urinary tract infection, site not specified documented in this encounter [employer] Phone: evaluation note* Diagnosis Frequent UTI Urinary tract infection, site not specified Urinary urgency Urgency of urination Urinary frequency documented in this encounter [employer] Phone: evaluation note* Diagnosis Frequent UTI Urinary tract infection, site not specified Urinary urgency Urgency of urination Urinary frequency documented in this encounter [employer] Phone: evaluation note* Diagnosis MRSA (methicillin resistant Staphylococcus aureus) septicemia ([facility]) Methicillin resistant staphylococcus aureus septicemia [facility]No assessment [facility] Work Phone: Evaluation note* Diagnosis Fatigue, unspecified type Encounter for screening for HIV Mixed hyperlipidemia Hyperglycemia Other abnormal glucose Chronic renal impairment, stage 3b (HCC) documented in this encounter [email or web address] Phone: evaluation note* Diagnosis Acute cystitis with hematuria Acute cystitis documented in this encounter [email or web address] Phone: evaluation note* Diagnosis Neck mass Swelling, mass, or lump in head and neck documented in this encounter [email or web address] Phone: evalrfrckm note* Diagnosis Pain of foot, unspecified laterality Closed nondisplaced fracture of second metatarsal bone of left foot, initial encounter Closed nondisplaced fracture of lateral cuneiform of left foot, initial encounter documented in this encounter [email or web address] Phone: evaluation note* Diagnosis Foreign body (FB) in soft tissue Residual foreign body in soft tissue documented in this encounter [email or web address] Phone: evaluation note* Diagnosis Pelvic pressure in female Other specified symptom associated with female genital organs documented in this encounter [email or web address] Phone: evaluation note* Diagnosis Charcot arthropathy of midfoot- Primary Gastrocnemius equinus, unspecified laterality Foot pain, left Pain in soft tissues of limb [facility] Mixed hyperlipidemia documented in this encounter [facility] Summary Purpose Family History No Family History [...] FoundDocuments on File Type Date Recorded 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 Advance Directives and Living Will Power of Milled Lumber Grader Latest Code Status on File Code Status Date Activated Date Inactivated Comments Full Code 08/15/2018 4:17 PM 08/25/2018 8:55 PM Full Code 03/19/2017 1:37 PM 03/19/2017 4:32 PM Full Code 03/19/2017 10:57 AM 03/19/2017 1:37 PM Full Code 03/05/2017 12:56 PM 03/05/2017 3:55 PM Full Code 03/05/2017 10:05 AM 03/05/2017 12:56 PM Documents on File Type Date Recorded 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 * Back Care Basics: General Info (Lao) * Back: Preventing Injuries (Lao) documented in this encounter Reason for Referral Status Reason Specialty Diagnoses / Procedures Referre d By Contact Referred To Contact Closed Radiology Diagnoses Brachial neuritis Peripheral nerve disorder Spasm of muscle Procedures MR Cervical Spine Without Contrast Tiffanie Casas MD [address] [place] [address] Specialty Diagnoses / Procedures Referred By Thor bernal Referred To Contact Radiology Diagnoses Neck mass Procedures US HEAD NECK SOFT TISSUE THYROID Felipe Adam MD [address] [place] [address] Referral ID Status Reason Start Date Expiration Date Visits Re quested Visits Authorized [id number] Closed 05/27/2022 05/27/2023 1 1 Chief Complaint and Reason for Visit Chief Complaint M54.16 M79.10 M79.60 9 R20.9 Chief Complaint Unknown Additional Source Comments INFORMATION SOURCE (unrecogn ized section and content) DATE CREATED AUTHOR 03/30/2018 [facility] DATE CREATED AUTHOR AUTHOR'S ORGANIZ ATION 03/30/2018 [facility] DATE CREATED AUTHOR AUTHOR'S ORGANIZ ATION 09/15/2018 [facility] DATE CREATED AUTHOR AUTHOR'S ORGANIZ ATION 09/23/2018 [facility] DATE CREATED AUTHOR AUTHOR'S ORGANIZ ATION 09/26/2018 [facility] DATE CREATED AUTHOR AUTHOR'S ORGANIZ ATION 12/10/2018 [facility] DATE CREATED AUTHOR AUTHOR'S ORGANIZ ATION 12/18/2018 [facility] DATE CREATED AUTHOR AUTHOR'S ORGANIZ ATION 02/11/2019 [facility] DATE CREATED AUTHOR AUTHOR'S ORGANIZ ATION 11/30/2021 [facility] DATE CREATED AUTHOR AUTHOR'S ORGANIZ ATION 05/01/2022 [facility] DATE CREATED AUTHOR AUTHOR'S ORGANIZ ATION 08/22/2022 [facility] DATE CREATED AUTHOR AUTHOR'S ORGANIZ ATION 01/12/2023 [facility] DATE CREATED AUTHOR AUTHOR'S ORGANIZ ATION 02/15/2023 [facility] DATE CREATED AUTHOR AUTHOR'S ORGANIZ ATION 03/14/2023 [facility] DATE CREATED AUTHOR AUTHOR'S ORGANIZ ATION 04/04/2023 [facility] DATE CREATED AUTHOR AUTHOR'S ORGANIZ ATION 02/20/2024 [facility] DATE CREATED AUTHOR AUTHOR'S ORGANIZ ATION 05/12/2024 [facility] DATE CREATED AUTHOR AUTHOR'S ORGANIZ ATION 05/12/2024 [facility] Reason for Visit (unrecogniz ed section and content) Status Reason Specialty Diagnoses / Procedures Referre d By Contact Referred To Contact Closed Radiology Diagnoses Brachial neuritis Peripheral nerve disorder Spasm of muscle Procedures MR Cervical Spine Without Contrast Tiffanie Casas MD [address] [place] [address] Specialty Diagnoses / Procedures Referred By Contac t Referred To Contact Occupational Therapy Diagnoses Carpal tunnel syndrome Carpal Tunnel Syndrome Procedures Eval and treat Keenan Lozano MD [address] [place] [address] [facility] [address] [place] [address] Referral ID Status Reason Start Date Expiration Date Visits Re quested Visits Authorized [id number] Open 12/19/2021 12/19/2022 1 1 Specialty Diagnoses / Procedures Referred By Contac t Referred To Contact Physical Therapy Diagnoses Radiculopathy, lumbar region Lumbar Radiculopathy Procedures Eval and treat Janel Allen, MANAGER HOSPICE - FLIGHT ATTENDANT [address] [place] [id number] [facility] [address] [place] [address] Referral ID Status Reason Start Date Expiration Date Visits Re quested Visits Authorized [id number] Open 12/19/2021 12/19/2022 1 1 Specialty Diagnoses / Procedures Referred By Contac t Referred To Contact Radiology Diagnoses Neck mass Procedures US HEAD NECK SOFT TISSUE THYROID Back, MD Felipe [address] [place] [address] Referral ID Status Reason Start Date Expiration Date Visits Re quested Visits Authorized [id number] Closed 05/27/2022 05/27/2023 1 1 Specialty Diagnoses / Procedures Referred By Contac t Referred To Contact Radiology Diagnoses Pain of foot, unspecified laterality Closed nondisplaced fracture of lateral cuneiform of left foot, initial encounter Procedures MRI FOOT LEFT W WO CONTRAST MRI FOOT LEFT W WO CONTRAST Robbin Sánchez, DPM [address] [facility], [place] [address] Referral ID Status Reason Start Date Expiration Date Visits Re quested Visits Authorized [id number] Closed 06/20/2022 06/20/2023 1 1 Reason Comments Education Class Specialty Diagnoses / Procedures Referred By Thor bernal Referred To Contact Diabetes Services Diagnoses Pre-diabetes Felipe Adam MD [address] [place] [id number] [facility] [address] [place] [address] Referral ID Status Reason Start Date Expiration Date V isits Requested Visits Authorized [id number] Open Specialty Services Required 06/30/2022 06/30/2023 2 2 Specialty Diagnoses / Procedures Referred By Thor bernal Referred To Contact Diabetes Services Diagnoses Pre-diabetes Felipe Adam MD [address] [place] [address] [facility] [address] [place] [address] Reason Comments Other Left foot charcot on -going since 06/2022. New x-rays today. 2nd of opinion. Care Teams (unrecognized sec tion and content) Asphalt Worker Relationship Specialty Start Date End Date Back, MD Felipe [address] [place] [address] PCP - General Internal Medicine 11/14/11 Asphalt Worker Relationship Specialty Start Date End Date Back, MD Felipe [address] [place] [address] PCP - General Internal Medicine 11/14/11 Asphalt Worker Relationship Specialty Start Date End Date Back, MD Felipe [address] [place] [id number] PCP - General Internal Medicine 11/14/11 Asphalt Worker Relationship Specialty Start Date End Date Back, MD Felipe [address] [place] [id number] PCP - General Internal Medicine 11/14/11 Asphalt Worker Relationship Specialty Start Date End Date Back, MD Felipe [address] [place] [address] PCP - General Internal Medicine 11/14/11 Asphalt Worker Relationship Specialty Start Date End Date Back, MD Felipe [address] [place] [address] PCP - General Internal Medicine 11/14/11 Asphalt Worker Relationship Specialty Start Date End Date Back, MD Felipe [address] [place] [address] PCP - General Internal Medicine 11/14/11 Team Status: Inactive Member Role Status Dates NON STAFF Primary Care Provider Active Tiffanie Casas MD Attending Provider Active Team Status: Active Member Role Status Dates NON STAFF Primary Care Provider Active Asphalt Worker Relationship Specialty Start Date End Date Back, MD Felipe [address] [place] [address] PCP - General Internal Medicine 11/14/11 Asphalt Worker Relationship Specialty Start Date End Date Back, MD Felipe [address] [place] [address] PCP - General Internal Medicine 11/14/11 Asphalt Worker Relationship Specialty Start Date End Date Back, MD Felipe [address] [place] [address] PCP - General Internal Medicine 11/14/11 Asphalt Worker Relationship Specialty Start Date End Date Back, MD Felipe [address] [place] [address] PCP - General Internal Medicine 11/14/11 Asphalt Worker Relationship Specialty Start Date End Date Back, MD Felipe [address] [place] [address] PCP - General Internal Medicine 11/14/11 Asphalt Worker Relationship Specialty Start Date End Date Back, MD Felipe [address] [place] [address] PCP - General Internal Medicine 11/14/11 Asphalt Worker Relationship Specialty Start Date End Date Back, MD Felipe [address] [facility] [place] [address] PCP - General Internal Medicine 11/14/11 Asphalt Worker Relationship Specialty Start Date End Date Back, MD Felipe [address] [facility] [place] [address] PCP - General Internal Medicine 11/14/11 Asphalt Worker Relationship Specialty Start Date End Date Back, MD Felipe [address] [place] [facility] [place] [address] PCP - General Internal Medicine 03/26/15 Asphalt Worker Relationship Specialty Start Date End Date Back, MD Felipe [address] [facility] [place] [address] PCP - General Internal Medicine 11/14/11 Team Status: Inactive Member Role Status Dates Frances Harris DPM MS Attending Provider Active Start: February 15, 2024 End: February 15, 2024 Asphalt Worker Relationship Specialty Start Date End Date Back, MD Felipe [address] [place] [address] PCP - General Internal Medicine 11/14/11 Goals [...] BE BASED ON THE PRIMARY CLINICAL RECORDS. [employer] [facility]. provides no warranty or guarantee of the accuracy or completeness of information in this document.
== END 2024-05-27 10:50 | disposition home or self-care (01) ==
LOC: WC 10:49
PROVIDERS: Visit Provider Podiatrist Foot & Ankle Surgery
DX: M79.672 Pain in left foot (principal); L97.428 Non-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 with other specified severity
CPT/HCPCS: 11042; 73630

== ENCOUNTER 2024-07-01 10:56 | Outpatient (OUT) | payer BC, SELFPAY ==
--- NOTE | 2024-07-01 | XR_ITS ---
The [address] [address] Patient Name: CHASTITY GASPAR MRN: [id number] date: 1980 Sex: F Assigned Patient Location: Current Patient Location: Accession/Order Number: [id number] Exam Date: 07/01/2024 10:58 Report Date: 07/02/2024 06:09 At the request of: FRANCES HARRIS Procedure: XR foot LT min 3V PROCEDURE: XR foot LT min 3V HISTORY: LEFT FOOT PAIN COMPARISON: XR foot left 05/27/2024 FINDINGS: BONES:Stable partial resection of the cuneiforms and cuboid. Fusion of the midfoot and hindfoot via multiple screws. Lucency adjacent the posterior aspect of the calcaneal screw may indicate some movement. SOFT TISSUES:Distal dorsal soft tissue swelling. EFFUSION:None visible. OTHER: Negative. XR/XR foot LT min 3V IMPRESSION: 1. Stable surgical changes without evidence of hardware fracture. 2. Artifact versus movement creating lucency adjacent the posterior aspect of the calcaneal screw. 3. New dorsal soft tissue swelling. Electronically authenticated by: PIPER MERCEDES Date: 07/02/2024 06:09
== END 2024-07-01 10:57 | disposition home or self-care (01) ==
LOC: WC 10:56
PROVIDERS: Visit Provider Podiatrist Foot & Ankle Surgery
DX: M79.672 Pain in left foot (principal); L97.428 Non-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 with other specified severity; M14.672 Charcot's joint, left ankle and foot
CPT/HCPCS: 73630; G0463

== ENCOUNTER 2024-07-27 10:46 | Outpatient (OUT) | payer BC, SELFPAY ==
--- NOTE | 2024-07-27 | XR_ITS ---
The [address] [address] Patient Name: CHASTITY GASPAR MRN: [id number] date: 1980 Sex: F Assigned Patient Location: [facility] Current Patient Location: Accession/Order Number: [id number] Exam Date: 07/27/2024 10:48 Report Date: 07/31/2024 07:19 At the request of: FRANCES HARRIS Procedure: XR foot LT min 3V PROCEDURE: XR foot LT min 3V HISTORY: LEFT FOOT PAIN COMPARISON: XR foot left 07/01/2024 FINDINGS: BONES:Stable Charcot joints with mechanical fusion via multiple screws. Stable lateral subluxation and complete loss of plantar arch. Stable separate small fracture fragments along anterior margin of the tibial plafond. SOFT TISSUES:Mild-moderate soft tissue swelling; stable to slightly improved. EFFUSION:None visible. OTHER: Negative. XR/XR foot LT min 3V IMPRESSION: 1. Stable surgical changes and advanced degenerative changes. Electronically authenticated by: PIPER MERCEDES Date: 07/31/2024 07:19
== END 2024-07-27 10:47 | disposition home or self-care (01) ==
LOC: RAD 10:46
PROVIDERS: Visit Provider Podiatrist Foot & Ankle Surgery
DX: M79.672 Pain in left foot (principal); M24.675 Ankylosis, left foot; Z98.890 Other specified postprocedural states
CPT/HCPCS: 73630

== ENCOUNTER 2024-08-23 10:37 | Outpatient (OUT) | payer BC, SELFPAY ==
--- NOTE | 2024-08-23 | XR_ITS ---
The [address] [address] Patient Name: CHASTITY GASPAR MRN: [id number] date: 1980 Sex: F Assigned Patient Location: [facility] Current Patient Location: Accession/Order Number: [id number] Exam Date: 08/23/2024 10:38 Report Date: 08/25/2024 06:14 At the request of: FRANCES HARRIS Procedure: XR foot LT min 3V PROCEDURE: XR foot LT min 3V HISTORY: LEFT FOOT PAIN ; recent fall COMPARISON: XR foot left 07/27/2024 FINDINGS: BONES:Stable advanced degenerative changes the midfoot and surgical resection of several mid foot bones and mechanical fusion of the talocalcaneal and medial aspect of the midfoot. No appreciable hardware fracture loosening. No bone fracture dislocation. SOFT TISSUES:Mild soft tissue swelling. EFFUSION:None visible. OTHER: Negative. XR/XR foot LT min 3V IMPRESSION: 1. Grossly stable advanced degenerative changes consistent with Charcot joint. 2. Stable surgical changes without evidence of hardware failure or change in alignment. Electronically authenticated by: PIPER MERCEDES Date: 08/25/2024 06:14
== END 2024-08-23 10:38 | disposition home or self-care (01) ==
LOC: RAD 10:37
PROVIDERS: Visit Provider Podiatrist Foot & Ankle Surgery
DX: M79.672 Pain in left foot (principal); M14.672 Charcot's joint, left ankle and foot; M24.675 Ankylosis, left foot
CPT/HCPCS: 73630

== ENCOUNTER 2024-09-20 10:32 | Outpatient (OUT) | payer OTHER, SELFPAY ==
--- NOTE | 2024-09-20 10:35 | XR_ITS ---
The [address] [address] Patient Name: CHASTITY GASPAR MRN: [id number] date: 1980 Sex: F Assigned Patient Location: [facility] Current Patient Location: Accession/Order Number: [id number] Exam Date: 09/20/2024 10:45 Report Date: 09/21/2024 06:56 At the request of: FRANCES HARRIS Procedure: XR foot LT min 3V PROCEDURE: XR foot LT min 3V HISTORY: Left Foot Pain COMPARISON: XR foot left 08/23/2024 FINDINGS: BONES:Stable midfoot surgical changes and fusion of the midfoot and hindfoot. No appreciable hardware fracture or loosening or change in alignment. SOFT TISSUES:Mild soft tissue swelling. EFFUSION:None visible. OTHER: Negative. XR/XR foot LT min 3V IMPRESSION: 1. Stable chronic changes of Charcot joint and subsequent osseous resections and fusion. No appreciable hardware failure or change in alignment. Electronically authenticated by: PIPER MERCEDES Date: 09/21/2024 06:56
== END 2024-09-20 10:33 | disposition home or self-care (01) ==
LOC: RAD 10:32
PROVIDERS: Visit Provider Podiatrist Foot & Ankle Surgery
DX: M79.672 Pain in left foot (principal); M24.675 Ankylosis, left foot; M14.672 Charcot's joint, left ankle and foot
CPT/HCPCS: 73630

== ENCOUNTER 2024-11-01 10:35 | Outpatient (OUT) | payer OTHER, SELFPAY ==
--- OUTSIDE RECORDS SUMMARY | 2024-11-01 10:45 | XMS_ITS | CCD ---
Author Organization [facility] Care Team Providers Care Junior Analyst Name Role Phone Back, Felipe Unavailable Unavailable DAKSHA KING Unavailable Unavailable SHANICE JUARES Unavailable Unava ilable GHAZOUL, GAYE Unavailable Unavailable GHAZOUL, AGYE Unavailable Unavailable GHAZOUL, GAYE Unavailable Unavailable GHAZOUL, [...] Provider Back , Felipe Primary Care Provider [phone] BACK, FELIPE Primary Care Unavailable MUTNAL, AMAR Admitting Unavailable MUTNAL, AMAR Attending Unavailable Back , Felipe Primary Care Provider NON STAFF Primary Care Provider UnavailMD Tiffanie Mixon. Attending Provider Back , Felipe Primary Care Provider [phone] YOON COBB Referring Unavailable BACK, FELIPE Primary Care Unavailable Back , Felipe Primary Care Provider [phone] [address] Attending Unavail able BACK, FELIPE Primary Care Unavailable Back , Felipe Primary Care Provider FRANCES HARRIS Admitting Unavailable FRANCES HARRIS Attending Unavailable FRANCES HARRIS Consulting Unavailable FRANCES HARRIS Admitting Unavailable HIGHLFRANCES HERNANDEZ Attending Unavailable [facility], DR PIPER Ackerman Consulting Unavailable HIGHLFRANCES HERNANDEZ Consulting Unavailable HIGHLFRANCES HERNANDEZ Admitting Unavailable FRANCES HARRIS Attending Unavailable [place], DR EMILY Riojas Consulting Unavailable FRANCES HARRIS Consulting Unavailable Back , Felipe Primary Care Provider [phone] BACK, FELIPE Primary Care Unavailable ROBBIN SHOOK II Attending Un available Back , Felipe Primary Care Provider INDER Harris Attending Provider [phone] Frances Harris Attending Unavailable Frances Harris Admitting Unavailable Unavailable Primary Care Provider Unavailabl e BACK, FELIPE Referring Unavailable BACK, FELIPE Attending Unavailable BACK, FELIPE Primary Care Unavailable KAMADANA, HEATHER Referring Unavailable BACK, FELIPE Primary Care Unavailable BACK, FELIPE Referring Unavailable BACK, FELIPE Primary Care Unavailable BACK, FELIPE Referring Unavailable BACK, FELIPE Primary Care Unavailable BACK, FELIPE Referring Unavailable BACK, FELIPE Primary Care Unavailable BACK, FELIPE Primary Care Unavailable BACK, FELIPE Referring Unavailable TAMMI QUIÑONES Referring Unavailabl e BACK, FELIPE Primary Care Unavailable TIFFANIE CASAS Attending Unavailable LORE MILES Attending Unavailable TIFFANIE CASAS Attending Unavailable FOZIA MENG Attending Unavailable BACK, FELIPE Referring Unavailable BACK, FELIPE Primary Care Unavailable BACK, FELIPE Admitting Unavailable SHERMAN ADAIR Attending Unavailable Allergies Allergy Classification Reported Allergen(s) Allergy Type Date of Onset Reaction(s) Facility (16 sources) Chlorhexidine; Translations: [CHLORHEXIDINE] Drug Allergy 3 Rash [facility] (4 sources) topiramate; Translations: [TOPIRAMATE] Drug Allergy 4 Other (See Comments) [facility] (11 sources) Topiramate Propensity to adverse reactions 4 [facility] Medications Current Medications Medication Drug Class(es) Dates [...] sulfate 5 mg extended release oral capsule (4 sources) Central Nervous System Stimulant Start: 02-25-2023 End: 10-11-2024 dextroamphetamine-ampheta mine (ADDERALL XR) 20 MG 24 hr capsule 02/25/2023 10/11/2024 Discontinued (Patient Discharge) Start: 01-14-2023 take 1 capsule by mo uth once daily in the morning amphetamine-dextroamphetamine (ADDERALL XR) 20 MG extended release capsule Take 1 capsule by mouth every morning. 0 01/14/2023 Active b complex vitamins (Vitamins B Complex) capsule (3 sources) take 1 capsule by mo uth once daily b complex vitamins (Vitamins B Complex) capsule Take 1 (one) capsule by mouth daily . Active take 1 capsule by mouth once [place]en [place] b complex vitamins (Vitamins B Complex) capsule Take 1 (one) capsule by mouth daily . 0 Active b complex vitamins capsule (20 sources) take 1 capsule by mo uth once daily b complex vitamins capsule Take 1 capsule by mouth daily Active take 1 capsule by mouth in the m orning b complex vitamins capsule Take 1 capsule by mouth in the morning. Active take 1 capsule by mouth once [place] [address] b complex vitamins capsule Take 1 capsule by mouth daily 0 Active baclofen 10 mg oral tablet (20 sources) gamma-Aminobutyric Acid-ergic Agonist Start: 02-26-2023 take 2 tablets by mouth at bedtime baclofen (LIORESAL) 10 MG tablet TAKE 2 TABLETS BY MOUTH AT BEDTIME FOR 30 DAYS 02/26/2023 Active Start: 04-19-2022 baclofen (DORA ESAL) 10 MG tablet 04/19/2022 Active biotin 1 mg oral tablet (20 sources) Start: 02-26-2022 Biotin 1000 MC G TABS 02/26/2022 Active biotin 10 MG tab let 1 (one) time each day at the same time. Active busPIRone hydrochloride 10 mg oral tablet (6 sources) take 1 tablet by mouth three times daily busPIRone (BUSPAR) 10 MG tablet Take 10 mg by mouth 3 times daily 0 Active Calcium (11 sources) Phosphate Binder, Calcium take 1 tablet by mouth in the morning calcium 500 MG tablet Take 1 tablet by mouth in the morning and 1 tablet before bedtime. Active Calcium Carbonate (7 sources) calcium carbonat e (CALCIUM 500 ORAL) Take by mouth . Active take 1 tablet by mouth twice allen ly calcium carbonate (OSCAL) 500 MG TABS tablet Take 1 tablet by mouth 2 times daily Active calcium carbonat e (CALCIUM 500 ORAL) Take by mouth . 0 Active cephalexin 250 mg oral capsule (9 sources) Cephalosporin Antibacterial Start: 08-13-2023 End: 06-10-2024 take 1 capsule by mouth once daily as needed for urinary tract infection cephALEXin (KEFLEX) 250 MG capsule Indications: Frequent UTI Take 1 capsule by mouth daily as needed (post-coital UTI prophylaxis) 30 capsule 1 08/13/2023 Active Start: 08-07-2022 take 1 capsule by mo uth once daily as needed for urinary tract [...] D3) 2,000 unit Tab Take by mouth. Active cholecalciferol (Vitamin D-3) 50 MCG (2000 UT) tablet Take by mouth. Active ciprofloxacin 250 mg oral tablet (1 [...] oral tablet (1 source) alpha-Adrenergic Agonist, Uncompetitive B-xuazva-Z-aspartat e Receptor Antagonist, Sigma-1 Agonist Start: 02-13-2021 End: 02-20-2021 take 1 tablet by mouth every six hours as needed Pseudoephedrine-DM- GG (CAPMIST DM) 60-15-400 MG TABS Take 1 tablet by mouth every 6 hours as needed (Sinus pressure) 28 tablet 0 02/13/2021 02/20/2021 Active diclofenac sodium 0.01 mg/mg topical gel (20 sources) Nonsteroidal Anti-inflammatory Drug Start: 01-06-2023 diclofenac sodium 1 % gel 01/06/2023 Active Start: 05-19-2019 diclofenac sod ium 1 % [...] 08/19/2017 Active famotidine 20 mg oral tablet (19 sources) Histamine-2 Receptor Antagonist Start: 07-13-2023 take 1 tablet by mouth in the morning famotidine (Pepcid) 20 MG tablet Take 20 mg by mouth in the morning and 20 mg before bedtime. 07/13/2023 Active Start: 05-26-2023 take 1 tablet by [...] Start: 09-22-2022 take 2 spray(s) nasal route in the morning fluticasone (Flonase) 50 MCG/ACT nasal spray Administer 2 sprays into each nostril in the morning. 09/22/2022 Active Start: 09-22-2022 take 2 spray(s) nasa l route once [...] sources) Peroxisome Proliferator Receptor alpha Agonist Start: 06-09-2017 gemfibrozil (Lopid) 600 MG tablet TAKE 1 TABLET TWICE A DAY 30 MINUTES BEFORE BREAKFAST AND SUPPER 02/12/2023 Active hydrOXYzine pamoate 50 mg oral capsule (10 sources) Antihistamine Start: 03-06-2023 hydrOXYzine pamoate (Vistaril) 50 MG capsule Indications: Allergy, subsequent encounter Take 1 capsule (50 mg) by mouth as needed at bedtime for itching. 90 capsule 1 03/06/2023 Active lansoprazole 30 mg delayed release oral capsule (5 sources) Proton Pump Inhibitor take 1 capsule by mouth once daily lansoprazole (PREVACID) 30 MG capsule Take 30 mg by mouth daily. 0 Active linaclotide 0.145 mg oral capsule (2 sources) Guanylate Cyclase-C Agonist Start: 05-09-2024 take 1 capsule by mouth once daily linaclotide (LINZESS) 145 MCG capsule Indications: Drug-induced constipation Take 1 capsule by mouth daily 90 capsule 1 05/09/2024 Active lisdexamfetamine dimesylate 40 mg oral capsule (20 sources) Central Nervous System Stimulant Start: 03-04-2023 VYVANSE 40 MG CAPS Take 50 mg by mouth daily. 03/04/2023 Active Start: 03-04-2023 VYVANSE 40 MG CAPS Start: 05-06-2021 VYVANSE 40 MG CAPS daily. 0 05/06/2021 Active Start: 01-10-2021 VYVANSE 20 MG CAPS End: 09-14-2024 take 1 capsule by mouth in the morning lisdexamfetamine (Vyvanse) 50 MG capsule Take 50 mg by mouth in the morning. 09/14/2024 Discontinued (Ineffective) loperamide hydrochloride 2 mg oral capsule (1 source) Opioid Agonist Start: 01-21-2021 End: 01-26-2021 take 1 capsule by mouth four times daily as needed for diarrhea loperamide (RA ANTI-DIARRHEAL) 2 MG capsule Indications: Diarrhea in adult patient Take 1 capsule by mouth 4 times daily as needed for Diarrhea 20 capsule 0 01/21/2021 01/26/2021 Active melatonin 3 mg oral tablet (17 sources) End: 10-11-2024 melatonin 3 mg Tab Take by mouth nightly. 10/11/2024 Discontinued (Patient Discharge) methocarbamol 500 mg oral tablet (2 sources) Muscle Relaxant Start: 02-08-2019 methocarbamol (ROBAXIN) 500 MG tablet montelukast 10 mg oral tablet (20 sources) Leukotriene Receptor Antagonist Start: 09-22-2022 End: 10-28-2024 take 1 tablet by mouth once daily montelukast (SINGULAIR) 10 mg tablet Take 1 (one) tablet (10 mg total) by mouth nightly . 09/22/2022 Active Start: 04-11-2022 take 1 tablet by once daily montelukast (SINGULAIR) 10 MG tablet [...] days 10 capsule 0 06/11/2021 06/16/2021 Active nortriptyline 50 mg oral capsule (15 sources) Tricyclic Antidepressant Start: 09-14-2024 End: 12-13-2024 take 2 capsules by mouth at bedtime nortriptyline (Pamelor) 50 MG capsule Indications: Idiopathic progressive polyneuropathy , Intractable 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 (CMS/HCC) Take 2 capsules (100 mg) by mouth at bedtime Take two capsules by mouth at bedtime. Total of 50 mg. 60 capsule 2 09/14/2024 12/13/2024 Active Start: 06-10-2024 End: 09-14-2024 take 2 capsules by mouth at bedtime nortriptyline (Pamelor) 25 MG capsule Indications: Idiopathic progressive polyneuropathy , Bilateral carpal tunnel syndrome , Restless legs , Intractable 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 (CMS/HCC) Take two capsules by mouth at bedtime. Total of 50 mg. 90 capsule 3 06/10/2024 09/14/2024 Discontinued (Reorder) Start: 11-12-2023 End: 06-10-2024 take 1 capsule by mouth at bedtime nortriptyline (Pamelor) 25 MG capsule Indications: Idiopathic progressive polyneuropathy , Bilateral carpal tunnel syndrome , Restless legs , Intractable 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 (CMS/HCC) Take 1 capsule (25 mg) by mouth at bedtime 90 capsule 3 11/12/2023 06/10/2024 Discontinued (Reorder) PARoxetine hydrochloride 20 mg oral tablet (5 [...] (BMI) of 38.0 to 38.9 in adult (HCC) Take 1 tablet by mouth every morning [...] (BMI) of 40.0 to 44.9 in adult (HCC) Take 1 capsule by mouth every morning for 30 days. 30 capsule 0 05/27/2019 06/26/2019 Active predniSONE 20 mg oral tablet (1 source) Start: 09-16-2020 End: 09-21-2020 take 3 tablets by mouth once daily predniSONE (DELTASONE) 20 MG tablet Take 3 tablets by mouth daily for 5 days 15 tablet 0 09/16/2020 09/21/2020 Active raNITIdine 150 mg oral tablet (1 source) Histamine-2 Receptor Antagonist Start: 12-09-2019 take 1 tablet by mouth twice daily raNITIdine (ZANTAC) 150 MG tablet Indications: Epigastric abdominal pain Take 1 tablet by mouth 2 times daily 60 tablet 3 12/09/2019 Active rimegepant 75 mg disintegrating oral tablet (20 sources) Start: 09-07-2024 Rimegepant Sulfate (Nurtec) 75 MG tablet dispersible Indications: Intractable 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 (CMS/HCC) Take 75 mg by mouth See administration instructions Take 1- 75mg tablet by mouth as needed at the onset of migraine. 16 tablet 11 09/07/2024 Active Start: 08-20-2023 Rimegepant Sul fate (Nurtec) 75 MG tablet dispersible Indications: Intractable 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 (CMS/HCC) Take 75 mg by mouth See administration instructions. Take 1- 75mg tablet by mouth as needed at the onset of migraine. 16 tablet 11 08/20/2023 Active Start: 01-02-2022 [address]EC [address] 1 TABLET ON OR UNDER THE TONGUE EVERY OTHER DAY 01/02/2022 Active rOPINIRole 0.5 mg oral tablet (20 sources) Nonergot Dopamine Agonist Start: 08-24-2023 rOPINIRole (Requip) 0.5 MG tablet Indications: Restless legs TAKE 1 TABLET THREE TIMES A DAY 270 tablet 3 08/24/2023 Active Start: 02-10-2023 rOPINIRole (RE QUIP) 0.5 MG tablet Start: 04-02-2021 take 1 tablet by prabhjot three times daily rOPINIRole (REQUIP) 1 MG tablet Take 1 (one) tablet (1 mg total) by mouth 3 (three) times a day . 04/02/2021 Active Start: 12-26-2020 rOPINIRole (RE QUIP) 0.5 MG tablet take 1 tablet by prabhjot twice daily rOPINIRole (REQUIP) 0.5 MG tablet Take 0.5 mg by mouth 2 times daily 0 Active sertraline 100 mg oral tablet (20 sources) Serotonin Reuptake Inhibitor Start: 02-25-2023 sertraline (ZOLOFT) 100 MG tablet 02/25/2023 Active Start: 07-30-2020 take 2 tablets by mo [facility] once daily sertraline (ZOLOFT) 100 MG tablet Take 2 tablets by mouth daily Currently decreasing this medication 07/30/2020 Active Start: 07-30-2020 take 1 tablet by prabhjot once daily sertraline (ZOLOFT) 100 MG tablet Take 100 mg by mouth daily Currently decreasing this medication 0 07/30/2020 Active Start: 07-06-2019 take 2 tablets by mo [facility] once daily sertraline (ZOLOFT) 50 MG [...] intercourse 30 tablet 2 08/01/2021 10/30/2021 Active thiamine 100 mg oral tablet (6 sources) Start: 08-20-2023 End: 08-19-2024 take 1 tablet by mouth in the morning thiamine (Vitamin B-1) 100 MG tablet Indications: Bilateral carpal tunnel syndrome , Idiopathic progressive polyneuropathy , Restless legs Take 1 tablet (100 mg) by mouth in the morning. 30 tablet 11 08/20/2023 08/19/2024 Active tiZANidine 4 mg oral tablet (14 sources) Central alpha-2 Adrenergic Agonist Start: 05-05-2020 tiZANidine (ZANAFLEX) 4 MG tablet Take by mouth nightly 0 05/05/2020 Active topiramate 50 mg oral tablet (15 sources) Start: 09-22-2023 End: 09-14-2024 topiramate 50 MG tablet 09/22/2023 09/14/2024 Discontinued (Side effects) Start: 06-27-2019 topiramate (TO PAMAX) 25 MG tablet vilazodone hydrochloride 40 mg oral tablet (8 sources) Start: 05-27-2019 take 1 tablet by mouth once daily vilazodone HCl (VIIBRYD) 40 MG TABS Indications: Depression with anxiety Take 1 tablet by mouth daily 30 tablet 3 05/27/2019 Active Completed/Discontinued Medications Medication Drug Class(es) Dates Sig (Normalized) Sig (Original) cetirizine hydrochloride 10 mg oral capsule (20 sources) Histamine-1 Receptor Antagonist Start: 06-09-2017 End: [...] End: 09-16-2020 orphenadrine (NORFLEX) injection 30 mg pregabalin 300 mg oral capsule (20 sources) Start: 02-20-2022 End: 01-11-2025 take 1 capsule by mouth in the morning pregabalin (Lyrica) 300 MG capsule Indications: Idiopathic progressive polyneuropathy , Non-seasonal allergic rhinitis due to pollen Take 1 capsule (300 mg) by mouth in the morning and 1 capsule (300 mg) before bedtime. 60 capsule 2 09/07/2024 10/05/2024 Discontinued (Reorder) Start: 08-25-2018 take 1 capsule by mo ut three times daily pregabalin (LYRICA) 150 MG capsule Indications: Epidural abscess , Discitis of thoracic region , Infection of thoracic spine (HCC) , Peripheral polyneuropathy Take 1 capsule by mouth 3 times daily for 30 days.. 90 capsule 0 08/25/2018 Active Problems Active Problems Problem Classification Problem Date Documented Date Episodic/Chronic Anxiety disorders (20 sources) Anxiety; Translations: [Mixed anxiety and depressive disorder] Onset: 3 08-15-2018 Chronic Chronic kidney disease (20 sources) Chronic kidney disease stage 3; Translations: [Chronic renal insufficiency] Onset: 4 07-05-2019 Chronic Chronic kidney disease (17 sources) Chronic renal insufficiency; Translations: [Chronic kidney disease] Onset: 4 10-25-2013 Diabetes mellitus with complications (20 sources) Polyneuropathy due to type 2 diabetes mellitus; Translations: [Type 2 diabetes mellitus with diabetic polyneuropathy] Onset: 3 03-08-2023 Chronic Disorders of lipid metabolism (20 sources) Mixed hypercholesterolemia and hypertriglyceridemia; Translations: [Mixed hyperlipidemia] Onset: 3 Resolved: 7 03-19-2017 Chronic Esophageal disorders (20 sources) Gastroesophageal reflux disease; Translations: [Gastro-esophageal reflux disease without esophagitis] Onset: 4 09-08-2014 Chronic Genitourinary symptoms and ill-defined conditions (5 sources) Dysuria; Translations: [Dysuria] Episodic Headache; including migraine (20 sources) Migraine without aura, not refractory ; Translations: [Chronic migraine without aura, not intractable, without status migrainosus] Onset: 3 03-08-2023 Chronic Immunizations and screening for infectious disease (2 [...] D deficiency, unspecified] Onset: 4 08-15-2018 Chronic Osteoarthritis (11 sources) Degenerative joint disease of ankle AND/OR foot; Translations: [Primary osteoarthritis, unspecified ankle and foot] Onset: 3 03-08-2023 Chronic Other acquired deformities (11 sources) Contracture of joint of left ankle; Translations: [Contracture, left ankle] Onset: 3 03-08-2023 Chronic Other acquired deformities (1 source) Deformity of lower limb; Translations: [Other specified acquired deformities of unspecified lower leg] 03-03-2023 Episodic Other and unspecified benign neoplasm (1 source) Lipoma of skin and subcutaneous tissue of neck; Translations: [Benign lipomatous neoplasm of skin and subcutaneous tissue of head, face and neck] 10-11-2024 Episodic Other and unspecified benign neoplasm (2 sources) Benign lipomatous neoplasm of skin and subcutaneous tissue of head, face and neck; Translations: [Benign lipomatous neoplasm of skin and subcutaneous tissue of head, face and neck] Onset: 5 Episodic Other circulatory disease (4 sources) Other [...] Onset: 3 Episodic Other connective tissue disease (5 sources) Pain in left foot; Translations: [PAIN IN LEFT FOOT] Onset: 3 Episodic Other hereditary and degenerative nervous system conditions (20 sources) Restless legs; Translations: [Restless legs syndrome] Onset: 1 05-13-2021 Chronic Other lower respiratory disease (1 source) Dyspnea; Translations: [SOB (shortness of breath)] Episodic Other lower respiratory disease (2 sources) Snoring; Translations: [Snoring] 06-13-2024 Episodic Other nervous system disorders (3 sources) Polyneuropathy, unspecified; Translations: [Polyneuropathy, unspecified] Onset: 8 Chronic Other nervous system disorders (20 sources) Peripheral nerve disease ; Translations: [Polyneuropathy, unspecified] Onset: 8 12-01-2017 Chronic Other nervous system disorders (20 sources) Carpal tunnel syndrome of right wrist; Translations: [Carpal tunnel syndrome, right upper limb] Onset: 7 03-05-2017 Chronic Other nervous system disorders (17 sources) Idiopathic progressive polyneuropathy; Translations: [Idiopathic progressive neuropathy] Onset: 3 08-11-2024 Chronic Other nervous system disorders (15 sources) Bilateral carpal tunnel syndrome; Translations: [Carpal tunnel syndrome, bilateral upper limbs] Onset: 3 03-08-2023 Chronic Other nervous system disorders (11 sources) Carpal tunnel syndrome of left wrist; Translations: [Carpal tunnel syndrome, left upper limb] Onset: 3 03-08-2023 Chronic Other nervous system disorders (11 sources) Inattention; Translations: [Attention and concentration deficit] Onset: 3 03-08-2023 Chronic Other nervous system disorders (11 sources) Disorder of the peripheral nervous system; Translations: [Hereditary and idiopathic neuropathy, unspecified] Onset: 3 03-08-2023 Chronic Other nervous system disorders (11 sources) Tarsal tunnel syndrome; Translations: [Tarsal tunnel syndrome, unspecified lower limb] Onset: 3 03-08-2023 Chronic Other nervous system disorders (13 sources) [...] foot] 03-03-2023 Chronic Other non-traumatic joint disorders (11 sources) Acute arthropathy; Translations: [Arthropathy, unspecified] Onset: 3 03-08-2023 Chronic Other non-traumatic joint disorders (11 sources) Charcot's arthropathy; Translations: [Charcot's joint, left ankle and foot] Onset: 3 03-08-2023 Chronic Other non-traumatic joint disorders (1 source) Pain in left ankle and joints of left foot; Translations: [PAIN IN LEFT ANKLE] Onset: 3 Episodic Other nutritional; endocrine; and metabolic disorders (2 sources) Obesity caused by energy imbalance; Translations: [Other obesity due to excess calories] 06-13-2024 Chronic Other screening for suspected conditions (not mental disorders or infectious disease) (13 sources) Elevated C-reactive protein; Translations: [Elevated C-reactive protein (CRP)] 08-18-2018 Other skin disorders (1 source) Mass of neck; Translations: [Localized swelling, mass and lump, neck] Episodic Other upper respiratory disease (20 sources) Seasonal allergy; Translations: [Other seasonal allergic rhinitis] Onset: 4 08-15-2018 Chronic Other upper respiratory disease (2 sources) Allergic rhinitis due to pollen; Translations: [Allergic rhinitis due to pollen] 08-11-2024 Chronic Residual codes; unclassified (20 sources) Obstructive sleep apnea syndrome; Translations: [Obstructive sleep apnea (adult) (pediatric)] Onset: 0 05-11-2020 Chronic Residual codes; unclassified (13 sources) Hypersomnia; Translations: [Hypersomnia, unspecified] Onset: 3 05-20-2023 Chronic Residual codes; unclassified (1 source) Obstructive sleep apnea (adult) (pediatric); Translations: [Obstructive sleep apnea (adult) (pediatric)] Onset: 4 Chronic Residual codes; unclassified (2 sources) Localized edema; Translations: [Localized edema] Onset: 3 Episodic Spondylosis; intervertebral disc disorders; other back problems (20 sources) Discitis, unspecified, thoracic region; Translations: [Degeneration of thoracic intervertebral disc] Onset: 4 08-15-2018 Chronic Thyroid disorders (20 sources) Thyroid nodule; Translations: [Nontoxic single thyroid nodule] Onset: 2 05-27-2022 Chronic Viral infection (1 source) Viral disease; Translations: [Viral infection, unspecified] Episodic Past or Other Problems Problem Classification Problem Date Documented Date Episodic/Chronic Abdominal pain (12 sources) Female genital organ symptoms; Translations: [Pelvic and perineal pain] Onset: 05-04-2018 Episodic Bacterial infection; unspecified site (20 sources) Methicillin resistant Staphylococcus aureus infection; Translations: [Bacteremia due to Methicillin resistant Staphylococcus aureus] Resolved: 05-11-2020 08-18-2018 Episodic Deficiency and other anemia (20 sources) Anemia; Translations: [Anemia, unspecified] Onset: 2022 2022 Episodic Diabetes mellitus without complication (20 sources) Hyperglycemia; Translations: [Hyperglycemia, unspecified] Onset: 06-24-2013 06-24-2013 Episodic Fluid and electrolyte disorders (20 sources) Lactic acidosis; Translations: [Acidosis] Onset: 08-15-2018 Resolved: 05-11-2020 08-15-2018 Episodic Fracture of lower limb (20 sources) Closed fracture of second metatarsal bone; Translations: [Nondisplaced fracture of second metatarsal bone, left foot, initial encounter for closed fracture] Onset: 03-08-2023 Episodic Infective arthritis and osteomyelitis (except that [...] of skin] Onset: 02-05-2018 08-03-2017 Episodic Other COORDINATING PRODUCER infection and poliomyelitis (20 sources) Extradural and subdural abscess, unspecified; Translations: [Epidural abscess] Onset: 08-20-2018 08-20-2018 Episodic Other connective tissue disease (1 source) Spasm; Translations: [Spasm of muscle] Episodic Other connective tissue disease (12 sources) Pain in left foot; Translations: [Pain in left foot] Onset: 05-19-2023 03-03-2023 Episodic Other connective tissue disease (11 sources) Pain in limb; Translations: [Pain in unspecified limb] Onset: 03-08-2023 03-08-2023 Episodic Other connective tissue disease (11 sources) Muscle pain; Translations: [Myalgia, unspecified site] Onset: 03-08-2023 03-08-2023 Episodic Other connective tissue disease (11 sources) Spasm of cervical paraspinous muscle; Translations: [Other muscle spasm] Onset: 05-20-2023 05-20-2023 Episodic Other connective tissue disease (11 sources) Bilateral trochanteric bursitis; Translations: [Trochanteric bursitis, right hip] Onset: 08-24-2023 08-24-2023 Episodic Other nervous system disorders (20 sources) Metabolic encephalopathy; Translations: [Metabolic encephalopathy] Resolved: 05-11-2020 08-16-2018 Chronic Other nervous system disorders (11 sources) Skin sensation disturbance; Translations: [Unspecified disturbances of skin sensation] Onset: 03-08-2023 03-08-2023 Episodic Other non-epithelial cancer of skin (20 sources) Basal cell carcinoma of skin; Translations: [Basal cell carcinoma of skin, unspecified] Onset: 09-16-2017 09-29-2017 Episodic Other screening for suspected conditions (not mental disorders or infectious disease) (20 sources) Elevated C-reactive protein; Translations: [Elevated C-reactive protein (CRP)] Onset: 03-08-2023 08-18-2018 Episodic Residual codes; unclassified (11 sources) Insomnia; Translations: [Insomnia, unspecified] Onset: 03-08-2023 03-08-2023 Episodic Septicemia (except in labor) (20 sources) Sepsis; Translations: [Methicillin resistant Staphylococcus aureus infection] Onset: 08-15-2018 Resolved: 05-11-2020 08-15-2018 Episodic Spondylosis; intervertebral disc disorders; other back problems (15 sources) Radiculopathy, cervical region; Translations: [Acute thoracic back pain] Onset: 02-03-2019 03-08-2023 Episodic Urinary tract infections (17 sources) Acute cystitis; Translations: [Acute cystitis with hematuria] Onset: 05-04-2018 Episodic Results Test Name Value Interpretation Reference Range Facility US THYROIDon 09-07-2024 US THYROID EXAM: US THYROID HISTORY: Thyroid nodule COMPARISON: Prior ultrasounds 05/27/2022, 06/15/2023. FINDINGS: The hypoechoic 7 mm in greatest diameter nodule in the middle one-third right lobe, slightly posteriorly, wider than tall with echogenic foci is stable. An isoechoic nodule 10 x 5 x 7 mm in the inferior left lobe is stable. Right lobe: 4.4 x 1.5 x 1.7 cm. Left lobe: 5.0 x 1.7 x 1.3 cm. Isthmus: 0.2 cm IMPRESSION: TI-RADS 5, highly suspicious subcentimeter nodule in the right lobe remains stable. (Follow if greater than or equal to 0.5 cm annually until 5 years according to ACR TI-RADS recommendations). Continued follow-up annually is recommended through 2026. Interpreted by: Micky Lauren Jr., MD Signed by: Micky Lauren Jr., MD 09/07/24 Final result Normal [facility] US Thyroid glandon TI-RADS 5, highly suspicious subcentimeter nodule in the right lobe remains stable. (Follow if greater than or equal to 0.5 cm annually until 5 years according to ACR TI-RADS recommendations). Continued follow-up annually is recommended through 2026. [facility] EXAM: US THYROID HISTORY: Thyroid nodule COMPARISON: Prior ultrasounds 05/27/2022, 06/15/2023. FINDINGS: The hypoechoic 7 mm in greatest diameter nodule in the middle one-third right lobe, slightly posteriorly, wider than tall with echogenic foci is stable. An isoechoic nodule 10 x 5 x 7 mm in the inferior left lobe is stable. Right lobe: 4.4 x 1.5 x 1.7 cm. Left lobe: 5.0 x 1.7 x 1.3 cm. Isthmus: 0.2 cm [facility] Micky Lauren Jr., MD - 09/07/2024 EXAM: US THYROID HISTORY: Thyroid nodule COMPARISON: Prior ultrasounds 05/27/2022, 06/15/2023. FINDINGS: The hypoechoic 7 mm in greatest diameter nodule in the middle one-third right lobe, slightly posteriorly, wider than tall with echogenic foci is stable. An isoechoic nodule 10 x 5 x 7 mm in the inferior left lobe is stable. Right lobe: 4.4 x 1.5 x 1.7 cm. Left lobe: 5.0 x 1.7 x 1.3 cm. Isthmus: 0.2 cm IMPRESSION: TI-RADS 5, highly suspicious subcentimeter nodule in the right lobe remains stable. (Follow if greater than or equal to 0.5 cm annually until 5 years according to ACR TI-RADS recommendations). Continued follow-up annually is recommended through 2026. [facility] US Thyroid glandOrdered By: Micky Lauren on 09-07-2024 [facility] Work Phone: US Thyroid glandon Radiology Study observation (narrative) [facility] [facility] CT FOOT LEFT WO CONTRASTon 0 05-10-2024 [...] with extensive bony fragmentation and debris with subluxation/disloca tion of multiple joints consistent with Charcot arthropathy. [...] at least moderate tendinopathy. There is a [id number] plantar calcaneal spur. CT is not sensitive [...] tibiotalar joint more pronounced anteriorly. Interpreted by: Hesham Mcarthur MD Signed by: Hesham Mcarthur MD 05/10/24 Final result Normal [facility] Magnesiumon 05-10-2024 Magnesium [Mass/Vol] 2.2 mg/dL 1.6 - 2 .6 mg/dL [facility] Magnesium [Mass/Vol] 2.2 mg/dL Normal 1.6-2.6 [facility] Comment on above: Performed By: #### U BENJI Gutiérrez, MG #### [facility] [address] [place] [address] Distance Education Director: Emily George MD #### URTPRT #### [facility] [address] [place] [address] Distance Education Director: Placido Pierce MD No Panel Informationon 05-10 [facility] Protein / creatinine ratio, urineon 05-10-2024 Creatinine (U) [Mass/Vol] 132.0 mg/dL 28.0 - 217.0 mg/dL [facility] Protein (U) [Mass/Vol] 9 mg/dL [facility] Comment on above: No normal range esta blished. Urine Total Protein Creatinine Ratio 0.07 [facility] Protein,Tot,[place] Uron 2023 Creatinine [Mass/Vol] 132.0 mg/dL Normal 28.0-217.0 [facility] Comment on above: Performed By: #### U A, RENP, MG #### [facility] [address] [place] [address] Distance Education Director: Emily George MD #### URTPRT #### [address] [id number] Distance Education Director: Placido Pierce MD Tot Prot. Conc. 9 mg/dL Normal [facility] Comment on above: Result Comment: No n ormal range established. Performed By: #### U A, RENP, MG #### [facility] [address] [place] [address] Distance Education Director: Emily George MD #### URTPRT #### [id number] [place], [place] [id number] Distance Education Director: Placido Pierce MD TP/Cre Ratio 0.07 Normal [facility] Comment on above: Performed By: #### U A, RENP, MG #### [facility] [address] [place] [address] Distance Education Director: Emily George MD #### URTPRT #### [address] [id number] Distance Education Director: Placido Pierce MD Renal Function Panelon 05-10 Albumin [Mass/Vol] 4.2 g/dL 3.5 - 5.2 g/dL [facility] Anion gap [Moles/Vol] 15 mmol/L 9 - 17 mmol/L [facility] Calcium [Mass/Vol] 9.2 mg/dL 8.6 - 10. 4 mg/dL [facility] Chloride [Moles/Vol] 101 mmol/L 98 - 10 7 mmol/L [facility] CO2 [Moles/Vol] 25 mmol/L 20 - 31 mmol/L [facility] Creatinine [Mass/Vol] 1.3 mg/dL High 0.5 - 0.9 mg/dL [facility] Sariah Hahn Rate 52 Low - PIN[facility] Comment on above: These results are [...] 141 mg/dL High 70 - 99 mg/dL [facility] Interpretation and review of laboratory results Abnormal [facility] Phosphate [Mass/Vol] 3.8 mg/dL 2.6 - 4 .5 mg/dL [facility] Potassium [Moles/Vol] 4.0 mmol/L 3.7 - 5.3 mmol/L [facility] Sodium [Moles/Vol] 141 mmol/L 135 - 144 mmol/L [facility] Urea nitrogen [Mass/Vol] 19 mg/dL 6 - 20 mg/dL [facility] Urea nitrogen/Creatinine [Mass ratio] 15 mg/mg 9 - 20 [facility] Albumin [Mass/Vol] 4.2 g/dL Normal 3.5-5.2 [facility] Comment on above: Performed By: #### U BENJI Gutiérrez MG #### [facility] [address] [place] [address] Distance Education Director: Emily George MD #### URTPRT #### [facility] [address] [place] [address] Distance Education Director: Placido Pierce MD Anion gap [Moles/Vol] 15 mmol/L Normal 9-17 [facility] Comment on above: Performed By: #### U BENJI Gutiérrez MG #### [facility] [address] [place], [place] [id number] Distance Education Director: Emily George MD #### URTPRT #### [address] [id number] Distance Education Director: Placido Pierce MD BUN/CRE Ratio 15 Normal 9-20 [facility] Comment on above: Performed By: #### BENJI Garcia, MG #### [facility] [address] [place], [place] [phone] Distance Education Director: Emily George MD #### URTPRT #### [address] [phone] Distance Education Director: Placido Pierce MD Calcium [Mass/Vol] 9.2 mg/dL Normal 8.6-10.4 [facility] Comment on above: Performed By: #### BENJI Garcia, MG #### [facility] [address] [place], [place] [id number] Distance Education Director: Emily George MD #### URTPRT #### [address] [address] Distance Education Director: Placido Pierce MD Chloride [Moles/Vol] 101 mmol/L Normal 98-107 [facility] Comment on above: Performed By: #### BENJI Garcia, MG #### [facility] [address] [place] [address] Distance Education Director: Emily George MD #### URTPRT #### [address] [address] Distance Education Director: Placido Pierce MD CO2 [Moles/Vol] 25 mmol/L Normal 20-31 [facility] Comment on above: Performed By: #### BENJI Garcia, MG #### [facility] [address] [place] [address] Distance Education Director: Emily George MD #### URTPRT #### [facility] [address] [place], [place] [phone] Distance Education Director: Placido Pierce MD Creatinine [Mass/Vol] 1.3 mg/dL High 0.5-0.9 [facility] Comment on above: Performed By: #### U A, RENP, MG #### [facility] [address] [place], [place] [phone] Distance Education Director: Emily George MD #### URTPRT #### [address] [place], [place] [phone] Distance Education Director: Placido Pierce MD GFR/1.73 sq M.predicted among non-blacks MDRD (S/P/Bld) [Vol rate/Area] 52 mL/min/{1.73_m2} Low >60 [facility] [...] renal tubular secretion. Performed By: #### U A, RENP, MG #### [facility] [address] [place] [address] Distance Education Director: Emily George MD #### URTPRT #### [facility] [address] [place], [place] [phone] Distance Education Director: Placido Pierce MD Glucose [Mass/Vol] 141 mg/dL High 70-99 [facility] Comment on above: Performed By: #### U A, RENP, MG #### [facility] [address] [facility] [place], [place] [phone] Distance Education Director: Emily George MD #### URTPRT #### [facility] [address] [place], [place] [phone] Distance Education Director: Placido Pierce MD Phosphorus, Inorg. 3.8 mg/dL Normal 2.6-4.5 [facility] Comment on above: Performed By: #### U A, RENP, MG #### [facility] [address] [place], [place] [id number] Distance Education Director: Emily George MD #### URTPRT #### [address] [phone] Distance Education Director: Placido Pierce MD Potassium [Moles/Vol] 4.0 mmol/L Normal 3.7-5.3 [facility] Comment on above: Performed By: #### U A, RENP, MG #### [facility] [address] [place], [place] [phone] Distance Education Director: Emily George MD #### URTPRT #### [address] [phone] Distance Education Director: Placido Pierce MD Sodium [Moles/Vol] 141 mmol/L Normal 135-144 [facility] Comment on above: Performed By: #### U A, RENP, MG #### [facility] [address] [place], [place] [phone] Distance Education Director: Emily George MD #### URTPRT #### [address] [id number] Distance Education Director: Placido Pierce MD Urea nitrogen [Mass/Vol] 19 mg/dL Normal 6-20 [facility] Comment on above: Performed By: #### U A, RENP, MG #### [facility] [address] [place], [place] [phone] Distance Education Director: Emily George MD #### URTPRT #### [address] [place], [place] [phone] Distance Education Director: Placido Pierce MD Urinalysison 05-10-2024 Bilirubin Ql (U) Negative NEGATIVE [facility] Clarity (U) Clear Clear [facility] Color (U) Yellow Yellow [facility] Comment [facility] Glucose Test strip (U) [Mass/Vol] Negative NEGATIVE mg/dL [facility] Hemoglobin Auto test strip Ql (U) Negative NEGATIVE [facility] Interpretation and review of laboratory results Abnormal [facility] Ketones (U) [Mass/Vol] Negative NEGAT BEATRIZ mg/dL [facility] Leukocyte esterase Test strip Ql (U) Negative NEGATIVE [facility] Nitrite Ql (U) Negative NEGATIVE [facility] pH (U) 5.0 [pH] 5.0 - 8.0 [facility] Protein (U) [Mass/Vol] TRACE Abnormal NEGAT BEATRIZ mg/dL [facility] Specific gravity (U) [Rel density] 1.020 1.005 - 1.030 [facility] Urobilinogen Qn (U) Normal 0.0 - 1. 0 EU/dL [facility] Urinalysis, Routineon 2023 Bilirubin, SemiQt,Ur Negative Normal NEG [facility] Comment on above: Performed By: #### U A, RENP, MG #### [facility] [address] [place] [address] Distance Education Director: Emily George MD #### URTPRT #### [facility] [address] [place], [place] [phone] Distance Education Director: Placido Pierce MD Blood, Urine Negative Normal NEG [facility] Comment on above: Performed By: #### U A, RENP, MG #### [facility] [address] [place] [address] Distance Education Director: Emily George MD #### URTPRT #### [facility] [address] [place] [address] Distance Education Director: Placido Pierce MD Clarity (U) Clear Normal CLEAR [facility] Comment on above: Performed By: #### U A, RENP, MG #### [facility] [address] [place] [address] Distance Education Director: Emily George MD #### URTPRT #### [facility] [address] [place] [phone] Distance Education Director: Placido Pierce MD Color (U) Yellow Normal YEL [facility] Comment on above: Performed By: #### U A, RENP, MG #### [facility] [address] [place] [address] Distance Education Director: Emily George MD #### URTPRT #### [address] [address] Distance Education Director: Placido Pierce MD Comment Normal [facility] Comment on above: Performed By: #### U A, RENP, MG #### [facility] [address] [place] [address] Distance Education Director: Emily George MD #### URTPRT #### [address] [address] Distance Education Director: Placido Pierce MD Glucose Ql (U) Negative Normal NEG [facility] Comment on above: Performed By: #### U A, RENP, MG #### [facility] [address] [place] [address] Distance Education Director: Emily George MD #### URTPRT #### [address] [address] Distance Education Director: Placido Pierce MD Ketones Ql (U) Negative Normal NEG [facility] Comment on above: Performed By: #### U A, RENP, MG #### [facility] [address] [place], [place] [phone] Distance Education Director: Emily George MD #### URTPRT #### [address] 1936208 Distance Education Director: Placido Pierce MD Leukocyte esterase Test strip Ql (U) Negative Normal NEG [facility] Comment on above: Performed By: #### U A, RENP, MG #### [facility] [address] [place], [place] [phone] Distance Education Director: Emiyl George MD #### URTPRT #### [address] [phone] Distance Education Director: Placido Pierce MD Nitrite,Ur Negative Normal NEG [facility] Comment on above: Performed By: #### U A, RENP, MG #### [facility] [address] [place], [place] [phone] Distance Education Director: Emily George MD #### URTPRT #### [address] [phone] Distance Education Director: Placido Pierce MD PH,Ur 5.0 Normal 5.0-8.0 [facility] Comment on above: Performed By: #### U A, RENP, MG #### [facility] [address] [place], [place] [phone] Distance Education Director: Emily George MD #### URTPRT #### [address] [phone] Distance Education Director: Placido Pierce MD Protein Ql (U) TRACE Abnormal NEG [facility] Comment on above: Performed By: #### U A, RENP, MG #### [facility] [address] [place], [place] 2100490 Distance Education Director: Emily eGorge MD #### URTPRT #### [facility] [address] [place], [place] [phone] Distance Education Director: Placido Pierce MD Spec. [place],Ur 1.020 Normal 1.005-1.030 [facility] Comment on above: Performed By: #### U A, RENP, MG #### [facility] [address] [place] [address] Distance Education Director: Emily George MD #### URTPRT #### [facility] [address] [place], [place] [phone] Distance Education Director: Placido Pierce MD Urobilinogen,Ur Normal Normal 0.0-1.0 [facility] Comment on above: Performed By: #### U A, RENP, MG #### [facility] [address] [place] [address] Distance Education Director: Emily George MD #### URTPRT #### [address] [place], [place] [id number] Distance Education Director: Placido Pierce MD Basic Metabolic Profon 05-02 Anion gap [Moles/Vol] 11 mmol/L Normal 9-17 [facility] Comment on above: Performed By: #### U A, RENP, MG #### [facility] [address] [place] [address] Distance Education Director: Emily George MD #### URTPRT #### [facility] [address] [place], [place] [phone] Distance Education Director: Placido Pierce MD BUN/CRE Ratio 18 Normal 9- [facility] Comment on above: Performed By: #### U A, RENP, MG #### [facility] [address] [place] [address] Distance Education Director: Emily George MD #### URTPRT #### [facility] [address] [place] [address] Distance Education Director: Placido Pierce MD Calcium [Mass/Vol] 9.1 mg/dL Normal 8.6-10.4 [facility] Comment on above: Performed By: #### U A, RENP, MG #### [facility] [address] [place], [place] 2223190 Distance Education Director: Emily George MD #### URTPRT #### [address] [place], [place] 1828608 Distance Education Director: Placido Pierce MD Chloride [Moles/Vol] 103 mmol/L Normal 98-107 [facility] Comment on above: Performed By: #### U A, RENP, MG #### [facility] [address] [place], [place] [phone] Distance Education Director: Emily George MD #### URTPRT #### [address] [place], [place] 2226108 Distance Education Director: Placido Pierce MD CO2 [Moles/Vol] 28 mmol/L Normal 20-31 [facility] Comment on above: Performed By: #### U A, RENP, MG #### [facility] [address] [place], [place] [phone] Distance Education Director: Emily George MD #### URTPRT #### [facility] [address] [place] [address] [phone] Distance Education Director: Placido Pierce MD Creatinine [Mass/Vol] 1.1 mg/dL High 0.5-0.9 [facility] Comment on above: Performed By: #### U A, RENP, MG #### [facility] [address] [place], [place] [phone] Distance Education Director: Emily George MD #### URTPRT #### [address] [phone] Distance Education Director: Placido Pierce MD GFR/1.73 sq M.predicted among non-blacks MDRD (S/P/Bld) [Vol rate/Area] 64 mL/min/{1.73_m2} Normal >60 [facility] Comment on [...] affects renal tubular secretion. Performed By: #### BENJI Garcia, MG #### [facility] [address] [place], [place] [phone] Distance Education Director: Emily George MD #### URTPRT #### [address] [address] Distance Education Director: Placido Pierce MD Glucose [Mass/Vol] 122 mg/dL High 70-99 [facility] Comment on above: Performed By: #### BENJI Garcia, MG #### [facility] [address] [place], [place] 2174690 Distance Education Director: Emily George MD #### URTPRT #### [address] [address] Distance Education Director: Placido Pierce MD Potassium [Moles/Vol] 4.1 mmol/L Normal 3.7-5.3 [facility] Comment on above: Performed By: #### U BENJI Gutiérrez, MG #### [facility] [address] [place], [place] [phone] Distance Education Director: Emily George MD #### URTPRT #### [address] [phone] Distance Education Director: Placido Pierce MD Sodium [Moles/Vol] 142 mmol/L Normal 135-144 [facility] Comment on above: Performed By: #### U A RENP, MG #### [facility] [address] [place], [place] [phone] Distance Education Director: Emily George MD #### URTPRT #### [facility] [address] [place], [place] [phone] Distance Education Director: Placido Pierce MD Urea nitrogen [Mass/Vol] 20 mg/dL Normal 6-20 [facility] Comment on above: Performed By: #### U A RENP, MG #### [facility] [address] [place], [place] [phone] Distance Education Director: Emily George MD #### URTPRT #### [address] [place], [place] [phone] Distance Education Director: Placido Pierce MD Hemoglobin A1Con 05-02-2024 Glucose [Mass/Vol] 105 mg/dL Normal [facility] Comment on above: Result Comment: The ADA and AACC recommend providing the estimated average glucose result to permit better patient understanding of their HBA1c result. Performed By: #### U MORE GutiérrezP, MG #### [facility] [address] [place], [place] [phone] Distance Education Director: Emily George MD #### URTPRT #### [address] [place], [place] [phone] Distance Education Director: Placido Pierce MD HbA1c (Bld) [Mass fraction] 5.3 % Normal 4.0-6.0 [facility] Comment on above: Performed By: #### U A RENP, MG #### [facility] [address] [place], [place] [phone] Distance Education Director: Emily George MD #### URTPRT #### [address] [place], [place] [phone] Distance Education Director: Placido Pierce MD Lipid Profileon 05-02-2024 Cholesterol [Mass/Vol] 170 mg/dL Normal 0-199 [facility] Comment on above: Result Comment: Cholesterol Guidelines: <200 Desirable 200-240 Borderline >240 Undesirable Performed By: #### U A RENP, MG #### [facility] [address] [place] [address] Distance Education Director: Emily George MD #### URTPRT #### [address] [phone] Distance Education Director: Placido Pierce MD Cholesterol in HDL [Mass/Vol] 28 mg/dL Low >40 [facility] Comment on above: Result Comment: HDL Guidelines: <40 Undesirable 40-59 Borderline >59 Desirable Performed By: #### BENJI Garcia, MG #### [facility] [address] [place] [address] Distance Education Director: Emily George MD #### URTPRT #### [address] [phone] Distance Education Director: Placido Pierce MD Cholesterol in LDL [Mass/Vol] 77 mg/dL Normal 0-100 [facility] Comment on above: Result Comment: LDL Guidelines: <100 Desirable 100-129 Near to/above Desirable 130-159 Borderline >159 Undesirable Direct (measured) LDL and calculated LDL are not interchangeable tests. Performed By: #### U A RENP, MG #### [facility] [address] [place], [place] [id number] Distance Education Director: Emily George MD #### URTPRT #### [address] [id number] Distance Education Director: Placido Pierce MD Cholesterol in VLDL [Mass/Vol] 65 mg/dL Normal [facility] Comment on above: Performed By: #### U A, RENP, MG #### [facility] [address] [place], [place] [id number] Distance Education Director: Emily George MD #### URTPRT #### [facility] [address] [place], [place] [id number] Distance Education Director: Placido Pierce MD Cholesterol.total/Chol esterol in HDL [Mass ratio] 6.0 {ratio} Normal [facility] Comment on above: Performed By: #### U A, RENP, MG #### [facility] [address] [place] [address] Distance Education Director: Emily George MD #### URTPRT #### [facility] [address] [place], [place] [id number] Distance Education Director: Placido Pierce MD Triglyceride [Mass/Vol] 323 mg/dL High <150 [facility] Comment on above: Result Comment: Triglyceride Guidelines: <150 Desirable 150-199 Borderline 200-499 High >499 Very high Based on AHA Guidelines for fasting triglyceride, July 2012. Performed By: #### U A, RENP, MG #### [facility] [address] [place], [place] [id number] Distance Education Director: Emily George MD #### URTPRT #### [facility] [address] [place], [place] [id number] Distance Education Director: Placido Pierce MD [facility] 02-15-2024 L Specimen: [id number] Received: 02/16/24 Status: ARLEN Dumont Num: [id number] Spec Type: Surgical Subm Dr: Frances Harris DPM, [place] Tissues: A Soft Tissue/Surgical Margin-Other than Tumor,Mass,Lip or Becka (LT MID FOOT CH Procedures: HE/2, Gross/Micro L4 Age/ Patient Sex Location Account Attending Physician Celina Gaspar 43/F LABELL [id number] Frances Harris DPM, MS SPEC NUM: [id number] RECD: 02/16/24 STATUS: ARLEN LIUZahraa NUM: [id number] MAYTE: 02/15/[address]: Frances Harris,INDER, [place] ENTERED: 02/16/[address] [facility] DR: Darwin Vergara SPEC TYPE: Surgical DEPT: [...] sections reveal firm, yellow spongy bone matrix. Disability Advocate sections are submitted following decalcification in A1?A2. Clinical history: varus deformity left ankle, charcot join left ankle and foot. CPT Codes 01449 Specimen: [id number] Received: 02/16/24 Status: ARLEN Julia Num: [id number] Spec Type: Surgical Subm Dr: Frances Harris,INDER, MS Tissues: A Soft Tissue/Surgical Margin-Other than Tumor,Mass,Lip or Becka (LT MID FOOT CH Procedures: HE/2, Gross/Micro L4 Patient: Celina Gaspar [id number] (Continued) Signed (signatur e on file) Juan José Yu MD 02/17/24 1549 Normal [facility] CBC with Diffon 01-29-2024 Abs. Basophil 0.04 k/uL Normal 0.00-0.20 [facility] Comment on above: Performed By: #### T HERNAN SANDOVAL CP, ZFAST #### [facility] [address] [place] [address] Distance Education Director: Emily George MD #### LDLDIR, LIPR, GLYHGB #### [facility] [place] [address] Distance Education Director: Placido Pierce MD Abs.Imm.Granulocyte 0.12 k/uL Normal 0.00-0.30 [facility] Comment on above: Performed By: #### T HERNAN SANDOVAL CP, ZFAST #### [facility] [address] [place] [address] Distance Education Director: Emily George MD #### LDLDIMeka, LIPR, GLYHGB #### [facility] [place] [address] Distance Education Director: Placido Pierce MD Abs.Neutrophil (Seg) 3.26 k/uL Normal 2.5-7.0 [facility] Comment on above: Performed By: #### T SHX, CDP, CP, ZFAST #### [facility] [address] [place], [place] [phone] Distance Education Director: Emily George MD #### LDLDIR, LIPR, GLYHGB #### [address] [id number] Distance Education Director: Placido Pierce MD Basophils/100 WBC (Bld) 1 % Normal 0-2 [facility] Comment on above: Performed By: #### T SHX, CDP, CP, ZFAST #### [facility] [address] [place] [address] Distance Education Director: Emily George MD #### LDLDIR, LIPR, GLYHGB #### [place] [phone] Distance Education Director: Placido Pierce MD Eosinophils (Bld) [#/Vol] 0.06 10*3/uL Normal 0.00-0.40 [facility] Comment on above: Performed By: #### T SHX, CDP, CP, ZFAST #### [facility] [address] [place] [phone] Distance Education Director: Emily George MD #### LDLDIR, LIPR, GLYHGB #### [address] [id number] Distance Education Director: Placido Pierce MD Eosinophils/100 WBC (Bld) 1 % Normal 0-5 [facility] Comment on above: Performed By: #### T SHX, CDP, CP, ZFAST #### [facility] [address] [place], [place] [phone] Distance Education Director: Emily George MD #### LDLDIR, LIPR, GLYHGB #### [address] [id number] Distance Education Director: Placido Pierce MD Erythrocyte distribution width (RBC) [Ratio] 15.2 % Normal 12.1-15.2 [facility] Comment on above: Performed By: #### T SHX, CDP, CP, ZFAST #### [facility] [address] [place] [phone] Distance Education Director: Emily George MD #### LDLDIR, LIPR, GLYHGB #### [place] [phone] Distance Education Director: Placido Pierce MD Hematocrit (Bld) [Volume fraction] 35.5 % Low 36.0-46.0 [facility] Comment on above: Performed By: #### T SHX, CDP, CP, ZFAST #### [facility] [address] [place] [phone] Distance Education Director: Emily George MD #### LDLDIR, LIPR, GLYHGB #### [place] [address] Distance Education Director: Placido Pierce MD Hemoglobin (Bld) [Mass/Vol] 11.9 g/dL Low 12.0-16.0 [facility] Comment on above: Performed By: #### T SHX, CDP, CP, ZFAST #### [facility] [address] [place] [phone] Distance Education Director: Emily George MD #### LDLDIR, LIPR, GLYHGB #### [place] [phone] Distance Education Director: Placido Pierce MD Immature granulocytes/100 WBC (Bld) 2 % Normal 0-5 [facility] Comment on above: Performed By: #### T SHX, CDP, CP, ZFAST #### [facility] [address] [place] [address] Distance Education Director: Emily George MD #### LDLDIR, LIPR, GLYHGB #### [address] [phone] Distance Education Director: Placido Pierce MD Lymphocytes (Bld) [#/Vol] 1.66 10*3/uL Normal 1.00-4.80 [facility] Comment on above: Performed By: #### T SHX, CDP, CP, ZFAST #### [facility] [address] [place] [address] Distance Education Director: Emily George MD #### LDLDIR, LIPR, GLYHGB #### [address] [phone] Distance Education Director: Placido Pierce MD Lymphocytes/100 WBC (Bld) 30 % Normal 15-40 [facility] Comment on above: Performed By: #### T SHX, CDP, CP, ZFAST #### [facility] [address] [place] [address] Distance Education Director: Emily George MD #### LDLDIR, LIPR, GLYHGB #### [address] [phone] Distance Education Director: Placido Pierce MD MCH (RBC) [Entitic mass] 28.4 pg Normal 26.0-34.0 [facility] Comment on above: Performed By: #### T SHX, CDP, CP, ZFAST #### [facility] [address] [place] [address] Distance Education Director: Emily George MD #### LDLDIR, LIPR, GLYHGB #### [place] [address] [place], [place] [phone] Distance Education Director: Placido Pierce MD MCHC (RBC) [Mass/Vol] 33.5 g/dL Normal 31.0-37.0 [facility] Comment on above: Performed By: #### T SHX, HERNAN, CP, ZFAST #### [facility] [address] [place], [place] [phone] Distance Education Director: Emily George MD #### LDLDIR, LIPR, GLYHGB #### [place] [phone] Distance Education Director: Placido Pierce MD MCV (RBC) [Entitic vol] 84.7 fL Normal 80.0-100.0 [facility] Comment on above: Performed By: #### T SHX, HERNAN, CP, ZFAST #### [facility] [address] [place] [address] Distance Education Director: Emily George MD #### LDLDIR, LIPR, GLYHGB #### [place] [phone] Distance Education Director: Placido Pierce MD Monocytes (Bld) [#/Vol] 0.43 10*3/uL Normal 0.00-1.00 [facility] Comment on above: Performed By: #### T SHX, HERNAN, CP, ZFAST #### [facility] [address] [place] [phone] Distance Education Director: Emily George MD #### LDLDIR, LIPR, GLYHGB #### [place] [phone] Distance Education Director: Placido Pierce MD Monocytes/100 WBC (Bld) 8 % Normal 4-8 [facility] Comment on above: Performed By: #### T SHX, CDP, CP, ZFAST #### [facility] [address] [place] [phone] Distance Education Director: Emily George MD #### LDLDIR, LIPR, GLYHGB #### [facility] [address] [place] [address] Distance Education Director: Placido Pierce MD Neutrophil (Seg) 58 % Normal 47-75 [facility] Comment on above: Performed By: #### T SHX, CDP, CP, ZFAST #### [facility] [address] [place], [place] [phone] Distance Education Director: Emily George MD #### LDLDIR, LIPR, GLYHGB #### [facility] [address] [place], [place] [phone] Distance Education Director: Placido Pirece MD Platelet mean volume (Bld) [Entitic vol] 10.8 fL Normal 6.0-12.0 [facility] Comment on above: Performed By: #### T SHX, CDP, CP, ZFAST #### [facility] [address] [place], [place] 2113890 Distance Education Director: Emily George MD #### LDLDIR, LIPR, GLYHGB #### [facility] [address] [place], [place] [phone] Distance Education Director: Placido Pierce MD Platelets (Bld) [#/Vol] 151 10*3/uL Normal 140-450 [facility] Comment on above: Performed By: #### T SHX, CDP, CP, ZFAST #### [facility] [address] [place], [place] [phone] Distance Education Director: Emily George MD #### LDLDIR, LIPR, GLYHGB #### [facility] [address] [place], [place] 7061408 Distance Education Director: Placido Pierce MD RBC (Bld) [#/Vol] 4.19 10*6/uL Normal 4.00-5.20 [facility] Comment on above: Performed By: #### T SHX, CDP, CP, ZFAST #### [facility] [address] [place], [place] [phone] Distance Education Director: Emily George MD #### LDLDIR, LIPR, GLYHGB #### [facility] [address] [place], [place] 0808508 Distance Education Director: Placido Pierce MD WBC (Bld) [#/Vol] 5.6 10*3/uL Normal 3.5-11.0 [facility] Comment on above: Performed By: #### T SHX, CDP, CP, ZFAST #### [facility] [address] [place], [place] 2175390 Distance Education Director: Emily George MD #### LDLDIR, LIPR, GLYHGB #### [address] [phone] Distance Education Director: Placido Pierce MD Comp Metabolic Profon 2023 Albumin [Mass/Vol] 4.4 g/dL Normal 3.5-5.2 [facility] Comment on above: Performed By: #### T SHX, CDP, CP, ZFAST #### [facility] [address] [place], [place] 6165890 Distance Education Director: Emily George MD #### LDLDIR, LIPR, GLYHGB #### [address] [address] Distance Education Director: Placido Pierce MD Alkaline Phos 95 U/L Normal 35-104 [facility] Comment on above: Performed By: #### T SHX, CDP, CP, ZFAST #### [facility] [address] [place], [place] 2397890 Distance Education Director: Emily George MD #### LDLDIR, LIPR, GLYHGB #### [place] [address] [place] [address] Distance Education Director: Placido Pierce MD ALT [Catalytic activity/Vol] 19 U/L Normal 5-33 [facility] Comment on above: Performed By: #### T SHX, CDP, CP, ZFAST #### [facility] [address] [place], [place] [phone] Distance Education Director: Emily George MD #### LDLDIR, LIPR, GLYHGB #### [address] [phone] Distance Education Director: Placido Pierce MD Anion gap [Moles/Vol] 16 mmol/L Normal 9-17 [facility] Comment on above: Performed By: #### T SHX, CDP, CP, ZFAST #### [facility] [address] [place] [address] Distance Education Director: Emily George MD #### LDLDIR, LIPR, GLYHGB #### [address] [address] Distance Education Director: Placido Pierce MD AST [Catalytic activity/Vol] 22 U/L Normal <32 [facility] Comment on above: Performed By: #### T SHX, CDP, CP, ZFAST #### [facility] [address] [place], [place] [id number] Distance Education Director: Emily George MD #### LDLDIR, LIPR, GLYHGB #### [address] [phone] Distance Education Director: Placido Pierce MD Bilirubin [Mass/Vol] 0.5 mg/dL Normal 0.3-1.2 [facility] Comment on above: Performed By: #### T SHX, CDP, CP, ZFAST #### [facility] [address] [place], [place] [phone] Distance Education Director: Emily George MD #### LDLDIR, LIPR, GLYHGB #### [address] [phone] Distance Education Director: Placido Pierce MD BUN/CRE Ratio 21 High 9-20 [facility] Comment on above: Performed By: #### T SHX, CDP, CP, ZFAST #### [facility] [address] [place] [address] Distance Education Director: Emily George MD #### LDLDIR, LIPR, GLYHGB #### [address] [id number] Distance Education Director: Placido Pierce MD Calcium [Mass/Vol] 9.3 mg/dL Normal 8.6-10.4 [facility] Comment on above: Performed By: #### T SHX, CDP, CP, ZFAST #### [facility] [address] [place], [place] 7177890 Distance Education Director: Emily George MD #### LDLDIR, LIPR, GLYHGB #### [address] [address] Distance Education Director: Placido Pierce MD Chloride [Moles/Vol] 99 mmol/L Normal 98-107 [facility] Comment on above: Performed By: #### T SHX, CDP, CP, ZFAST #### [facility] [address] [place], [place] [phone] Distance Education Director: Emily George MD #### LDLDIR, LIPR, GLYHGB #### [place] [address] [place], [place] 4774908 Distance Education Director: Placido Pierce MD CO2 [Moles/Vol] 21 mmol/L Normal 20-31 [facility] Comment on above: Performed By: #### T SHX, CDP, CP, ZFAST #### [facility] [address] [place], [place] [phone] Distance Education Director: Emily George MD #### LDLDIR, LIPR, GLYHGB #### [facility] [address] [place], [place] 7439508 Distance Education Director: Placido Pierce MD Creatinine [Mass/Vol] 1.2 mg/dL High 0.5-0.9 [facility] Comment on above: Performed By: #### T SHX, CDP, CP, ZFAST #### [facility] [address] [place] [address] Distance Education Director: Emily George MD #### LDLDIR, LIPR, GLYHGB #### [place] [address] [place], [place] [phone] Distance Education Director: Placido Pierce MD GFR/1.73 sq M.predicted among [...] affects renal tubular secretion. Performed By: #### T SHX, CDP, CP, ZFAST #### [facility] [address] [place] [address] Distance Education Director: Emily George MD #### LDLDIR, LIPR, GLYHGB #### [facility] [address] [place], [place] 3365008 Distance Education Director: Placido Pierce MD Glucose [Mass/Vol] 152 mg/dL High 70-99 [facility] Comment on above: Performed By: #### T SHX, CDP, CP, ZFAST #### [facility] [address] [place] [address] Distance Education Director: Emily George MD #### LDLDIR, LIPR, GLYHGB #### [address] [phone] Distance Education Director: Placido Pierce MD Potassium [Moles/Vol] 3.6 mmol/L Low 3.7-5.3 [facility] Comment on above: Performed By: #### T SHX, CDP, CP, ZFAST #### [facility] [address] [place] [address] Distance Education Director: Emily George MD #### LDLDIR, LIPR, GLYHGB #### [address] [phone] Distance Education Director: Placido Pierce MD Protein [Mass/Vol] 7.5 g/dL Normal 6.4-8.3 [facility] Comment on above: Performed By: #### T SHX, CDP, CP, ZFAST #### [facility] [address] [place] [phone] Distance Education Director: Emily George MD #### LDLDIR, LIPR, GLYHGB #### [address] [phone] Distance Education Director: Placido Pierce MD Sodium [Moles/Vol] 136 mmol/L Normal 135-144 [facility] Comment on above: Performed By: #### T SHX, CDP, CP, ZFAST #### [facility] [address] [place], [place] [phone] Distance Education Director: Emily George MD #### LDLDIR, LIPR, GLYHGB #### [address] [phone] Distance Education Director: Placido Pierce MD Urea nitrogen [Mass/Vol] 25 mg/dL High 6-20 [facility] Comment on above: Performed By: #### T SHX, CDP, CP, ZFAST #### [facility] [address] [place], [place] 4491690 Distance Education Director: Emily George MD #### LDLDIR, LIPR, GLYHGB #### [address] [phone] Distance Education Director: Placido Pierce MD Hemoglobin A1Con 01-29-2024 Glucose [Mass/Vol] 123 mg/dL Normal [facility] Comment on above: Result Comment: The ADA and AACC recommend providing the estimated average glucose result to permit better patient understanding of their HBA1c result. Performed By: #### U A, RENP, MG #### [facility] [address] [place] [address] Distance Education Director: Emily George MD #### URTPRT #### [address] [id number] Distance Education Director: Placido Pierce MD HbA1c (Bld) [Mass fraction] 5.9 % Normal 4.0-6.0 [facility] Comment on above: Performed By: #### U A, RENP, MG #### [facility] [address] [place] [address] Distance Education Director: Emily George MD #### URTPRT #### [address] [id number] Distance Education Director: Placido Pierce MD LDL Chol, Directon 4 LDL Chol, Direct 114 mg/dL Normal [facility] Comment on above: Performed By: #### T SHX, CDP, CP, ZFAST #### [facility] [address] [place] [address] Distance Education Director: Emily George MD #### LDLDIR, LIPR, GLYHGB #### [place] [address] [place] [address] Distance Education Director: Placido Pierce MD Lipid Profileon 01-29-2024 Cholesterol [Mass/Vol] 190 mg/dL Normal 0-199 [facility] Comment on above: Result Comment: Cholesterol Guidelines: <200 Desirable 200-240 Borderline >240 Undesirable Performed By: #### T NATHANX, HERNAN, CP, ZFAST #### [facility] [address] [place], [place] 5090390 Distance Education Director: Emily George MD #### LDLDIR, LIPR, GLYHGB #### [facility] [address] [place] [address] [id number] Distance Education Director: Placido Pierce MD Cholesterol in HDL [Mass/Vol] 30 mg/dL Low >40 [facility] Comment on above: Result Comment: HDL Guidelines: <40 Undesirable 40-59 Borderline >59 Desirable Performed By: #### T NATHANX, HERNAN, CP, ZFAST #### [facility] [address] [place] [phone] Distance Education Director: Emily George MD #### LDLDIR, LIPR, GLYHGB #### [address] [phone] Distance Education Director: Placido Pierce MD Cholesterol,LDL Can not be calculated Normal 0-100 [facility] Comment on above: Result Comment: LDL Guidelines: <100 Desirable 100-129 Near to/above Desirable 130-159 Borderline >159 Undesirable Direct (measured) LDL and calculated LDL are not interchangeable tests. Performed By: #### T SHX, HERNAN, CP, ZFAST #### [facility] [address] [place], [place] 1205990 Distance Education Director: Emily George MD #### LDLDIR, LIPR, GLYHGB #### [facility] [address] [place] [address] [phone] Distance Education Director: Placido Pierce MD Cholesterol,VLDL Can not be calculated Normal [facility] Comment on above: Performed By: #### T SHX, HERNAN, CP, ZFAST #### [facility] [address] [place], [place] [phone] Distance Education Director: Emily George MD #### LDLDIR, LIPR, GLYHGB #### [facility] [address] [place], [place] 5142408 Distance Education Director: Placido Pierce MD Cholesterol.total/Chol esterol in HDL [Mass ratio] 6.0 {ratio} Normal [facility] Comment on above: Performed By: #### T HERNAN SANDOVAL CP, ZFAST #### [facility] [address] [place], [place] 0449290 Distance Education Director: Emily George MD #### LDLDIR, LIPR, GLYHGB #### [address] [phone] Distance Education Director: Placido Pierce MD Triglyceride [Mass/Vol] 443 mg/dL High <150 [facility] Comment on above: Result Comment: Triglyceride Guidelines: <150 Desirable 150-199 Borderline 200-499 High >499 Very high Based on AHA Guidelines for fasting triglyceride, July 2012. Performed By: #### T HERNAN SANDOVAL CP, ZFAST #### [facility] [address] [place], [place] [phone] Distance Education Director: Emily George MD #### LDLDIR, LIPR, GLYHGB #### [address] [address] Distance Education Director: Placido Pierce MD Patient fasting?on 4 Patient fasting? YES Normal [facility] Comment on above: Performed By: #### T HERNAN SANDOVAL CP, ZFAST #### [facility] [address] [place], [place] [phone] Distance Education Director: Emily George MD #### LDLDIR, LIPR, GLYHGB #### [address] [phone] Distance Education Director: Placido Pierce MD TSH w/reflex to FT4on 2023 Thyroid Stim. Horm. 1.77 uIU/mL Normal 0.30-5.00 [facility] Comment on above: Performed By: #### T SHX, CDP, CP, ZFAST #### [facility] [address] [place] [address] Distance Education Director: Emily George MD #### LDLDIR, LIPR, GLYHGB #### [facility] [address] [place] [address] Distance Education Director: Placido Pierce MD Lipid Panelon 06-15-2023 Cholesterol [Mass/Vol] 174 mg/dL NINF - 200 mg/dL [facility] Comment on above: Cholesterol Guidelines: <200 Desirable 200-240 Borderline >240 Undesirable Cholesterol in HDL [Mass/Vol] 30 mg/dL Low 40 - PINF mg/dL [facility] Comment on above: HDL Guidelines: <40 Undesirable 40-59 Borderline >59 Desirable Cholesterol in LDL [Mass/Vol] 77 mg/dL 0 - 130 mg/dL [facility] Comment on above: LDL Guidelines: <100 Desirable 100-129 Near to/above Desirable 130-159 Borderline >159 Undesirable Direct (measured) LDL and calculated LDL are not interchangeable tests. Cholesterol.total/Chol esterol in HDL [Mass ratio] 5.8 {ratio} High NINF - 5 [facility] Interpretation and review of laboratory results Abnormal [facility] Triglyceride [Mass/Vol] 334 mg/dL High NINF - 150 mg/dL [facility] Comment on above: Triglyceride Guidelines: <150 Desirable 150-199 Borderline 200-499 High >499 Very high Based on AHA Guidelines for fasting triglyceride, July 2012. [facility] BUN & Creatinineon 3 Creatinine [Mass/Vol] 1.08 mg/dL High 0.50 - 0.90 mg/dL [facility] GFR/1.73 sq M.predicted MDRD (S/P/Bld) [Vol rate/Area] - PINF [facility] Comment on above: These results [...] 21 mg/dL High 6 - 20 mg/dL [facility] CBC with Auto Differentialon 02-05-2023 Absolute Eos # 0.10 [facility] Absolute Lymph # 1.70 [facility] [place] [facility] Absolute [place] # 0.50 [facility] Basophils (Bld) [#/Vol] 0.00 10*3/uL [facility] Basophils/100 WBC (Bld) 1 % 0 - 2 % [facility] Differential Type YES [facility] Eosinophils/100 WBC (Bld) 1 % 0 - 5 % [facility] Hematocrit (Bld) [Volume fraction] 36.2 % 36 - 46 % [facility] Hemoglobin (Bld) [Mass/Vol] 12.2 g/dL 12.0 - 16.0 g/dL [facility] Interpretation and review of laboratory results Abnormal [facility] Lymphocytes/100 WBC (Bld) 23 % 15 - 40 % [facility] MCH (RBC) [Entitic mass] 28.7 pg 26 - 34 pg [facility] MCHC (RBC) [Mass/Vol] 33.7 g/dL 31 - 37 g/dL B [facility] MCV (RBC) [Entitic vol] 85.3 fL 80 - 100 fL [facility] Monocytes/100 WBC (Bld) 7 % 4 - 8 % [facility] Platelet distribution width (Bld) [Ratio] 18.1 % High 12.1 - 15.2 % [facility] Platelets (Bld) [#/Vol] 150 10*3/uL [facility] RBC (Bld) [#/Vol] 4.25 10*6/uL 4.0 - 5.2 m/uL [facility] Segmented neutrophils/100 WBC (Bld) 68 % 47 - 75 % [facility] Segs Absolute 5.30 [facility] WBC (Bld) [#/Vol] 7.6 10*3/uL [facility] Chlorideon 02-05-2023 Chloride [Moles/Vol] 99 mmol/L 98 - 10 7 mmol/L [facility] Glucose, Randomon 02-05-2023 Glucose [Mass/Vol] 107 mg/dL High 70 - 99 mg/dL [facility] No Panel Informationon 02-05 Interpretation and review of laboratory results Abnormal [facility] Potassiumon 02-05-2023 Potassium [Moles/Vol] 4.6 mmol/L 3.7 - 5.3 mmol/L [facility] Sodiumon 02-05-2023 Sodium [Moles/Vol] 134 mmol/L Low 135 - 144 mmol/L [facility] Wet Prep, Genitalon 02-06-20 Interpretation and review of laboratory results Abnormal [facility] Microorganism or agent identified Nom (Unsp spec) FEW WBC Abnormal [facility] Microorganism or agent identified Nom (Unsp spec) MODERATE EPITHELIAL CELLS Abnormal [facility] Microorganism or agent identified Nom (Unsp spec) MODERATE BACTERIA Abnormal [facility] Microorganism or agent identified Nom (Unsp spec) NO TRICHOMONAS SEEN [facility] Microorganism or agent identified Nom (Unsp spec) NO FUNGAL ELEMENTS SEEN [facility] Microorganism or agent identified Nom (Unsp spec) NO CLUECELL SEEN [facility] Specimen Description .VAGINA [facility] CT FOOT LT WO CONon 02-05-20 CT [...] by: EMILY ELY Date: 2023-02-04 20:14 Normal [facility] XR ANKLE LEFT 3+ VIEWS (ABDOULAYE [...] ThuJan 06, 2023 6:11:26 PM EDT Normal [facility] Comment on above: Order Comment: Injur y/Trauma or Illness?:Injury/Trauma How long have you had these symptoms (acute/chronic)?:Acute Reason for exam?:left lateral ankle pain History of cancer?: Surgeries, chemotherapy, or radiation?: Type of Exam?:Initial Mechanism of injury?:rolled ankle 4 days ago Radiology Outside Office Net C Developer yon 08-21-2022 Radiology Outside Office Copy [id number] [id number]#[id number]:127 Normal [facility] MRI FOOT LEFT W WO CONTRASTo n 06-25-2022 Combined with the accompanying radiographs, 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 [facility] RIS CONSOLIDATED EXAM: MRI FOOT [...] osteomyelitis. No nonenhancing abscess pockets are identified. [facility] Mike Montgomery MD - 06/25/2022 EXAM: MRI FOOT LEFT W [...] fragmentation of the navicular and cuneiform bones. [facility] [employer] Work Phone: Radiology Study observation (narrative) [employer] Phone: MRI FOOT LEFT W WO CONTRASTO rdered By: Mike Villavicencio on 06-25-[address]22 [employer] Phone: XR FOOT LEFT (2 VIEWS)on There is a linear metallic foreign body projecting between the second and third metatarsals. There is also a metallic foreign body within the lower leg. There is fragmentation of the navicular as well as of all 3 cuneiforms. The appearance is consistent with the patient's history of neuropathy. [facility] CONSOLIDATED EXAM: XR FOOT LEFT (2 VIEWS) HISTORY: M79.5. The patient is a 42-year-old female. Evaluate for foreign body. COMPARISON: None. [facility] CONSOLIDATED Mike Villavicencio MD - 06/25/2022 EXAM: XR FOOT LEFT (2 [...] consistent with the patient's history of neuropathy. 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 Clinical follow up recommended. Subcentimeter highly suspicious nodule in the right thyroid lobe 7 mm in greatest dimension. This meets criteria for annual follow up for 5 years. It does not meet criteria for FNA. [facility] CONSOLIDATED EXAM: US HEAD NECK [...] fat without shadowing, suggestive of a lipoma. [facility] RIS OMAR Lauren, Micky Felix Jr., MD - 05/27/2022 EXAM: US HEAD [...] It does not meet criteria for FNA. [employer] Phone: Radiology Study observation (narrative) [employer] Phone: HEAD NECK SOFT TISSUE THY ROIDOrdered By: Micky Lauren on 05-27-2022 [facility] [employer] [facility] Work Phone: Rejection Notificationon Reason see below [facility] Comment on above: Result Comment: Unab le to perform testing; no specimen received. To perform testing the specimen will need to be recollected. No spec Performed By: #### R EJEC #### [facility] [address] [place] [address] Rejected Test CXURN Normal [facility] Comment on above: Performed By: #### R EJEC #### [facility] [address] [place] [address] LDL Cholesterol, [employer] Cholesterol in LDL [Mass/Vol] 84 mg/dL <100 [facility] CBC with Auto Differentialon 04-12-2022 Absolute Eos # 0.10 [facility] Absolute Lymph # 1.40 [facility] Absolute [place] # 0.30 [facility] Basophils (Bld) [#/Vol] 0.00 10*3/uL [facility] Basophils/100 WBC (Bld) 1 % 0 - 2 % [facility] Differential Type YES [facility] Eosinophils/100 WBC (Bld) 1 % 0 - 5 % [facility] Hematocrit (Bld) [Volume fraction] 35.7 % Low 36 - 46 % [facility] Hemoglobin (Bld) [Mass/Vol] 12.0 g/dL 12.0 - 16.0 g/dL [facility] Interpretation and review of laboratory results Abnormal [facility] Lymphocytes/100 WBC (Bld) 25 % 15 - 40 % [facility] MCH (RBC) [Entitic mass] 28.0 pg 26 - 34 pg [facility] MCHC (RBC) [Mass/Vol] 33.7 g/dL 31 - 37 g/dL B ON [facility] MCV (RBC) [Entitic vol] 83.3 fL 80 - 100 fL [facility] Monocytes/100 WBC (Bld) 5 % 4 - 8 % [facility] Platelet distribution width (Bld) [Ratio] 16.4 % High 12.1 - 15.2 % [facility] Platelets (Bld) [#/Vol] 168 10*3/uL [facility] RBC (Bld) [#/Vol] 4.29 10*6/uL 4.0 - 5.2 m/uL [facility] Segmented neutrophils/100 WBC (Bld) 68 % 47 - 75 % [facility] Segs Absolute 3.90 [facility] WBC (Bld) [#/Vol] 5.7 10*3/uL [facility] Comprehensive Metabolic Pane lyn 04-12-2022 Albumin [Mass/Vol] 4.2 g/dL 3.5 - 5.2 g/dL [facility] ALP (Bld) [Catalytic activity/Vol] 88 U/L 35 - 104 U/L [facility] ALT [Catalytic activity/Vol] 29 U/L 5 - 33 U/L [facility] Anion gap [Moles/Vol] 11 mmol/L 9 - 17 mmol/L [facility] AST [Catalytic activity/Vol] 27 U/L <32 [facility] Bilirubin [Mass/Vol] 0.65 mg/dL 0.30 - 1.20 mg/dL [facility] Calcium [Mass/Vol] 9.1 mg/dL 8.6 - 10. 4 mg/dL [facility] Chloride [Moles/Vol] 101 mmol/L 98 - 10 7 mmol/L [facility] CO2 [Moles/Vol] 28 mmol/L 20 - 31 mmol/L [facility] Creatinine [Mass/Vol] 1.04 mg/dL High 0.50 - 0.90 mg/dL [facility] Free PSA/Total PSA [Mass fraction] 6.8 g/dL 6.4 - 8.3 g/dL [facility] GFR >60 >60 mL/min [facility] GFR Non- 58 mL/min Low >60 [facility] [employer] [facility] GFR/1.73 sq M.predicted MDRD (S/P/Bld) [Vol rate/Area] [facility] [employer] Comment on above: Average GFR for 40-4 9 years old: 99 mL/min/1.73sq m Chronic Kidney Disease: <60 mL/min/1.73sq m Kidney failure: <15 mL/min/1.73sq m eGFR calculated using average adult body mass. Additional eGFR calculator available at: http://www.Priccut/multiple_crcl_2012.htm Glucose [Mass/Vol] 103 mg/dL High 70 - 99 mg/dL [facility] [employer] Interpretation and review of laboratory results Abnormal [facility] [employer] [facility] Potassium [Moles/Vol] 3.9 mmol/L 3.7 - 5.3 mmol/L [facility] Sodium [Moles/Vol] 140 mmol/L 135 - 144 mmol/L [facility] [employer] [facility] Urea nitrogen (BldV) [Mass/Vol] 13 mg/dL 6 - 20 mg/dL [facility] [employer] [facility] Urea nitrogen/Creatinine (Bld) [Mass ratio] 13 [facility] HIV Screenon 04-12-2022 HIV Ag/Ab Non-Reactive NONREACTIVE [facility] [employer] [facility] Comment on above: No laboratory eviden ce of HIV infection. If acute HIV infection is suspected, consider testing for HIV-1 RNA. [facility] [employer] [facility] Lipid Panelon 04-12-2022 Cholesterol [Mass/Vol] 184 mg/dL <200 [facility] [employer] Comment on above: Cholesterol Guidelines: <200 Desirable 200-240 Borderline >240 Undesirable Cholesterol in HDL [Mass/Vol] 30 mg/dL Low >40 [facility] [employer] Comment on above: HDL Guidelines: <40 Undesirable 40-59 Borderline >59 Desirable Cholesterol.total/Chol esterol in HDL [Mass ratio] 6.1 {ratio} High <5 [facility] Interpretation and review of laboratory results Abnormal [facility] LDL Cholesterol 0 - 130 mg/dL [facility] [employer] Comment on above: Calculation not jacqueline d for Triglyceride value greater than 400 mg/dL. Direct LDL reflexed LDL Guidelines: <100 Desirable 100-129 Near to/above Desirable 130-159 Borderline >159 Undesirable Direct (measured) LDL and calculated LDL are not interchangeable tests. Triglyceride [Mass/Vol] 460 mg/dL High <150 [employer] Comment on above: Triglyceride Guidelines: <150 Desirable 150-199 Borderline 200-499 High >499 Very high Based on AHA Guidelines for fasting triglyceride, July 2012. [employer] No Panel Informationon 04-12 [employer] [facility] TSH with Reflexon 04-12-2022 TSH Qn 0.99 m[IU]/L [employer] [facility] Urinalysis with MicroscopicO rdered By: Lita Weeks on 08-01-2021 - [employer] Work Phone: Amorphous, UA NOT REPORTED None [employer] [facility] Work Phone: Bacteria, UA RARE Abnormal None [facility] Work Phone: Bilirubin Urine Negative NEGATIVE [facility] Work Phone: Casts UA NOT REPORTED /LPF [facility] Work Phone: Color, UA Yellow Yellow [facility] Work Phone: Crystals, UA NOT REPORTED None /HPF [employer] Work Phone: Epithelial Cells UA 2 TO 5 /HPF [employer] Work Phone: Glucose, Ur Negative NEGATIVE [employer] Work Phone: Interpretation and review of laboratory results Abnormal [employer] Work Phone: Ketones Ql (U) Negative NEGATIVE [facility] HospitalSavvySource [facility] Work Phone: Leukocyte esterase Test strip Ql (U) Negative NEGATIVE [employer] Work Phone: Mucus, UA NOT REPORTED None [facility] Work Phone: Nitrite, Urine Negative NEGATIVE [employer] Work Phone: Other Observations UA NOT REPORTED NOT REQ. M [email or web address] Work Phone: pH, UA 6.0 [facility] Work Phone: Protein, UA Negative NEGATIVE [facility] Work Phone: RBC, UA NOT REPORTED [facility] Work Phone: Renal Epithelial, UA NOT REPORTED 0 /HPF Me [facility] Work Phone: Specific [place], UA 1.020 [facility] [employer] Work Phone: Trichomonas, UA NOT REPORTED None [facility] HospitalMarco Pol[facility] [employer] Work Phone: Turbidity UA Clear Clear [facility] Work Phone: Urinalysis Comments [employer] Work Phone: Urine Hgb Negative NEGATIVE [facility] Work Phone: Urobilinogen, Urine Normal Normal [facility] Work Phone: WBC, UA NOT REPORTED 0 /HPF [facility] Work Phone: Yeast, UA NOT REPORTED None [facility] Work Phone: [facility] Work Phone: Urinalysis with MicroscopicO rdered By: Lita Weeks on 07-11-2021 - [employer] Work Phone: Amorphous, UA NOT REPORTED None [employer] [facility] Work Phone: Bacteria, UA 3+ Abnormal None [employer] Work Phone: Bilirubin Urine Negative NEGATIVE [employer] [facility] Work Phone: Casts UA NOT REPORTED /LPF [facility] Work Phone: Color, UA Yellow Yellow [facility] Work Phone: Crystals, UA NOT REPORTED None /HPF [facility] Work Phone: Epithelial Cells UA 2 TO 5 /HPF [facility] Work Phone: Glucose, Ur Negative NEGATIVE [facility] Work Phone: Interpretation and review of laboratory results Abnormal [facility] Work Phone: Ketones Ql (U) Negative NEGATIVE [facility] HospitalSav[facility] Work Phone: Leukocyte esterase Test strip Ql (U) 2+ Abnormal NEGATIVE [facility] Work Phone: Mucus, UA NOT REPORTED None [facility] Work Phone: Nitrite, Urine Positive Abnormal NEGATIVE [facility] Hospital[facility] Work Phone: Other Observations UA NOT REPORTED NOT REQ. [facility] Work Phone: pH, UA 6.0 [facility] Work Phone: Protein, UA Negative NEGATIVE [facility] HospitalJob[facility] Phone: RBC, UA NOT REPORTED [facility] Phone: Renal Epithelial, UA NOT REPORTED 0 /HPF Me [email or web address] Work Phone: Specific [place], UA 1.025 [facility] [employer] Work Phone: Trichomonas, UA NOT REPORTED None [facility] HospitalMarco [facility] [employer] [facility] [employer] Work Phone: Turbidity UA Hazy Abnormal Clear [facility] HospitalJob[facility] Phone: Urinalysis Comments [facility] Phone: Urine Hgb Negative NEGATIVE [facility] Phone: Urobilinogen, Urine Normal Normal [facility] Phone: WBC, UA 20 TO 50 0 /HPF [facility] Work Phone: Yeast, UA NOT REPORTED None [facility] Phone: [facility] Work Phone: AlbuminOrdered By: Gregory stevens on 05-20-2021 Albumin [Mass/Vol] 4.2 g/dL 3.5 - 5.2 g/dL [facility] HospitalJob[facility] Phone: BUN & CreatinineOrdered By: Gregory Forbes on 05-20-2021 Creatinine [Mass/Vol] 1.18 mg/dL High 0.50 - 0.90 mg/dL [employer] Phone: GFR >60 >60 mL/min [employer] Phone: GFR Non- 50 mL/min Low >60 [employer] Phone: GFR/1.73 sq M.predicted MDRD (S/P/Bld) [Vol rate/Area] [employer] Phone: Comment on above: Average GFR for 40-4 9 years old: 99 mL/min/1.73sq m Chronic Kidney Disease: <60 mL/min/1.73sq m Kidney failure: <15 mL/min/1.73sq m eGFR calculated using average adult body mass. Additional eGFR calculator available at: http://www.Priccut/[employer]_crcl_2012.htm GFR/1.73 sq M.predicted MDRD (S/P/Bld) [Vol rate/Area] NOT REPORTED [employer] Phone: Interpretation and review of laboratory results Abnormal [employer] Phone: Urea nitrogen (BldV) [Mass/Vol] 19 mg/dL 6 - 20 mg/dL [employer] Phone: CalciumOrdered By: Gregory stevens on 05-20-2021 Calcium [Mass/Vol] 9.2 mg/dL 8.6 - 10. 4 mg/dL [employer] Phone: Electrolyte PanelOrdered By: Gregory Forbes on 05-20-2021 Anion gap [Moles/Vol] 10 mmol/L 9 - 17 mmol/L [employer] Phone: Chloride [Moles/Vol] 103 mmol/L 98 - 10 7 mmol/L [employer] Phone: CO2 [Moles/Vol] 25 mmol/L 20 - 31 mmol/L [employer] Phone: Potassium [Moles/Vol] 4.2 mmol/L 3.7 - 5.3 mmol/L [email or web address] Work Phone: Sodium [Moles/Vol] 138 mmol/L 135 - 144 mmol/L [email or web address] Work Phone: MagnesiumOrdered By: Gregory high on 05-20-2021 Magnesium [Mass/Vol] 2.2 mg/dL 1.6 - 2 .6 mg/dL [email or web address] Work Phone: No Panel InformationOrdered By: Gregory Forbes on 05-20-2021 [facility] Work Phone: PhosphorusOrdered By: Gregory Forbes on 05-20-2021 Phosphate [Mass/Vol] 3.7 mg/dL 2.6 - 4 .5 mg/dL [email or web address] Work Phone: UrinalysisOrdered By: Gregory Forbes on 05-20-2021 Bilirubin Urine Negative NEGATIVE [facility] Work Phone: Color, UA YELLOW YELLOW [email or web address] Work Phone: Glucose, Ur Negative NEGATIVE [facility] Work Phone: Interpretation and review of laboratory results Abnormal [email or web address] Work Phone: Ketones Ql (U) Negative NEGATIVE [facility] Work Phone: Leukocyte esterase Test strip Ql (U) Negative NEGATIVE [email or web address] Work Phone: Nitrite, Urine Negative NEGATIVE [facility] Work Phone: pH, UA 5.0 [email or web address] Work Phone: Protein, UA TRACE Abnormal NEGATIVE [facility] Work Phone: Specific [place], UA 1.020 [facility] [employer] Work Phone: Turbidity UA CLEAR CLEAR [facility] [email or web address] Work Phone: Urinalysis Comments [employer] Phone: Urine Hgb Negative NEGATIVE [facility] Phone: Urobilinogen, Urine Normal Normal [facility] Phone: [facility] Phone: COVID-19Ordered By: Pattie smith on 01-22-2021 SARS-CoV-2 (COVID-19) RNA SHARMNI+probe Ql (Unsp spec) [employer] Phone: SARS-CoV-2 (COVID-19) RNA SHARMIN+probe Ql (Unsp spec) Not detected Not Detected [facility] Phone: Comment on above: The specimen is NEGATIVE for SARS-CoV-2, the novel coronavirus associated with COVID-19. A negative result does not rule out COVID-19. Twin SARS-CoV-2 for use on the [employer] is a real-time RT-PCR test intended [...] this assay. Fact sheet for Healthcare Providers: https://www.fda.gov/media/718605/download Fact sheet for Patients: https://www.fda.gov/media/521727/download METHODOLOGY: RT-PCR Source .THROAT [facility] Hospital[facility] Phone: COVID-19, PCRon 11-15-2020 SARS-CoV-2, Rapid Not Detected Not Detected [facility] [employer] Phone: Comment on above: Rapid NAAT: The [...] management decisions. Fact sheet for Healthcare Providers: https://www.fda.gov/media/649449/download Fact sheet for Patients: https://www.[employer].gov/media/370932/download Methodology: Isothermal Nucleic Acid Amplification Source .THROAT [facility] [employer] Phone: Otheron 11-15-2020 SARS-CoV-2 [facility] [employer] Phone: CBC Auto Differentialon 09-04 Basophils (Bld) [#/Vol] 0.10 10*3/uL [place] Basophils/100 WBC (Bld) 1 % 0 - 2 % [place] Differential Type YES [place] Eosinophils (Bld) [#/Vol] 0.10 10*3/uL [place] Eosinophils/100 WBC (Bld) 1 % 0 - 5 % [place] Erythrocyte distribution width (RBC) [Ratio] 16.3 % High 12.1 - 15.2 % [place] Hematocrit (Bld) [Volume fraction] 36.5 % 36 - 46 % [place] Hemoglobin (Bld) [Mass/Vol] 12.5 g/dL 12 - 16 g/dL [place] Interpretation and review of laboratory results Abnormal [place] Lymphocytes (Bld) [#/Vol] 1.90 10*3/uL [place] Lymphocytes/100 WBC (Bld) 25 % 15 - 40 % [place] MCH (RBC) [Entitic mass] 28.8 pg 26 - 34 pg [place] MCHC (RBC) [Mass/Vol] 34.3 g/dL 31 - 37 g/dL [place] MCV (RBC) [Entitic vol] 84.0 fL 80 - 100 fL [place] Monocytes (Bld) [#/Vol] 0.40 10*3/uL [place] Monocytes/100 WBC (Bld) 5 % 4 - 8 % [place] Platelet mean volume (Bld) [Entitic vol] NOT REPORTED 6 - 12 fL [place] Platelets (Bld) [#/Vol] 167 10*3/uL [place] Platelets (Bld) [#/Vol] NOT REPORTED [place] RBC (Bld) [#/Vol] 4.35 10*6/uL 4 - 5.2 m/uL [place] RBC morphology finding Nom (Bld) NOT REPORTED [place] Segmented neutrophils/100 WBC (Bld) 68 % 47 - 75 % [place] Segs Absolute 5.40 [place] WBC (Bld) [#/Vol] 7.8 10*3/uL [place] WBC (Bld) [#/Vol] NOT REPORTED per 100 WBC [place] WBC Morphology NOT REPORTED [place] Comprehensive Metabolic Pane l w/ Reflex to MGon 09-16-2020 Albumin [Mass/Vol] 4.4 g/dL 3.5 - 5.2 g/dL [place] Albumin/Globulin [Mass ratio] NOT REPORTED [place] ALP [Catalytic activity/Vol] 117 U/L High 35 - 104 U/L [place] ALT [Catalytic activity/Vol] 41 U/L High 5 - 33 U/L [place] Anion gap [Moles/Vol] 10 mmol/L 9 - 17 mmol/L [place] AST [Catalytic activity/Vol] 39 U/L High <32 [place] Bilirubin Ql (U) 0.52 mg/dL 0.3 - 1.2 mg/dL [place] Bun/Cre Ratio 11 [place] Calcium [Mass/Vol] 9.0 mg/dL 8.6 - 10. 4 mg/dL [place] Chloride [Moles/Vol] 101 mmol/L 98 - 10 7 mmol/L [place] CO2 [Moles/Vol] 26 mmol/L 20 - 31 mmol/L [place] Creatinine [Mass/Vol] 1.32 mg/dL High 0.5 - 0.9 mg/dL [place] GFR 54 mL/min Low >60 [place] GFR Non- 44 mL/min Low >60 [place] GFR/1.73 sq M predicted among non-blacks MDRD (S/P/Bld) [Vol rate/Area] [place] Comment on above: Average GFR for 40-4 9 years old: 99 mL/min/1.73sq m Chronic Kidney Disease: <60 mL/min/1.73sq m Kidney failure: <15 mL/min/1.73sq m eGFR calculated using average adult body mass. Additional eGFR calculator available at: http://www.Priccut/multiple_crcl_2012.htm GFR/1.73 sq M predicted among non-blacks MDRD (S/P/Bld) [Vol rate/Area] NOT REPORTED [place] Glucose [Mass/Vol] 173 mg/dL High 70 - 99 mg/dL [place] Interpretation and review of laboratory results Abnormal [place] Potassium [Moles/Vol] 3.9 mmol/L 3.7 - 5.3 mmol/L [place] Protein [Mass/Vol] 7.3 g/dL 6.4 - 8.3 g/dL [place] Sodium [Moles/Vol] 137 mmol/L 135 - 144 mmol/L [place] Urea nitrogen [Mass/Vol] 15 mg/dL 6 - 20 mg/dL [place] Otheron 09-16-2020 Immature granulocytes (Bld) [#/Vol] NOT REPORTED [place] Sedimentation Rateon 020 Sed Rate 15 mm 0 - 20 mm [place] Urinalysis, reflex to micros copicon 09-16-2020 Bil[facility] [place] Color, UA YELLOW YELLOW [place] Glucose, Ur Negative NEGATIVE [place] Interpretation and review of laboratory results Abnormal [place] Ketones Ql (U) Negative NEGATIVE [place] Leukocyte esterase Test strip Ql (U) Negative NEGATIVE [place] Nitrite, Urine Negative NEGATIVE [place] pH, UA 5.0 [place] Protein (U) [Mass/Vol] TRACE Abnormal NEGATIVE [place], [place] Specific [place], UA 1.025 [place], [place] Turbidity UA CLEAR CLEAR [place] Urinalysis Comments [place] Urine Hgb Negative NEGATIVE [place] Urobilinogen, Urine Normal Normal [place] C-Reactive Proteinon 020 CRP [Mass/Vol] 6 mg/L High 0 - 5 mg/L [place] Interpretation and review of laboratory results Abnormal [place] CBC With Auto Differentialon 08-24-2020 Basophils (Bld) [#/Vol] 0.00 10*3/uL [place] Basophils/100 WBC (Bld) 1 % 0 - 2 % [place] Differential Type YES [place] Eosinophils (Bld) [#/Vol] 0.10 10*3/uL [place] Eosinophils/100 WBC (Bld) 1 % 0 - 5 % [place] Erythrocyte distribution width (RBC) [Ratio] 16.2 % High 12.1 - 15.2 % [place] Hematocrit (Bld) [Volume fraction] 35.4 % Low 36 - 46 % [place] Hemoglobin (Bld) [Mass/Vol] 12.2 g/dL 12 - 16 g/dL [place] Interpretation and review of laboratory results Abnormal [place] Lymphocytes (Bld) [#/Vol] 1.60 10*3/uL [place] Lymphocytes/100 WBC (Bld) 28 % 15 - 40 % [place] MCH (RBC) [Entitic mass] 29.1 pg 26 - 34 pg [place] MCHC (RBC) [Mass/Vol] 34.5 g/dL 31 - 37 g/dL [place] MCV (RBC) [Entitic vol] 84.2 fL 80 - 100 fL [place] Monocytes (Bld) [#/Vol] 0.40 10*3/uL [place] Monocytes/100 WBC (Bld) 6 % 4 - 8 % [place] Platelet mean volume (Bld) [Entitic vol] NOT REPORTED 6 - 12 fL [place] Platelets (Bld) [#/Vol] 160 10*3/uL [place] Platelets (Bld) [#/Vol] NOT REPORTED [place] RBC (Bld) [#/Vol] 4.20 10*6/uL 4 - 5.2 m/uL [place] RBC morphology finding Nom (Bld) NOT REPORTED [place] Segmented neutrophils/100 WBC (Bld) 64 % 47 - 75 % [place] Segs Absolute 3.80 [place] WBC (Bld) [#/Vol] 5.8 10*3/uL [place] WBC (Bld) [#/Vol] NOT REPORTED per 100 WBC [place] WBC Morphology NOT REPORTED [place] Otheron 08-24-2020 Immature granulocytes (Bld) [#/Vol] NOT REPORTED 0 % [place] Sedimentation Rateon 020 Sed Rate 10 mm 0 - 20 mm [place] C-Reactive Proteinon 020 CRP [Mass/Vol] 2 mg/L 0 - 5 mg/L [place] CBC With Auto Differentialon 07-24-2020 Basophils (Bld) [#/Vol] 0.10 10*3/uL [place] Basophils/100 WBC (Bld) 1 % 0 - 2 % [place] Differential Type [facility] [place] Eosinophils (Bld) [#/Vol] 0.10 10*3/uL [place] Eosinophils/100 WBC (Bld) 1 % 0 - 5 % [place] Erythrocyte distribution width (RBC) [Ratio] 16.8 % High 12.1 - 15.2 % [place] Hematocrit (Bld) [Volume fraction] 40.0 % 36 - 46 % [place] Hemoglobin (Bld) [Mass/Vol] 13.5 g/dL 12 - 16 g/dL [place] Interpretation and review of laboratory results Abnormal [place] Lymphocytes (Bld) [#/Vol] 1.70 10*3/uL [place] Lymphocytes/100 WBC (Bld) 17 % 15 - 40 % [place] MCH (RBC) [Entitic mass] 29.1 pg 26 - 34 pg [place] MCHC (RBC) [Mass/Vol] 33.8 g/dL 31 - 37 g/dL [place] MCV (RBC) [Entitic vol] 86.0 fL 80 - 100 fL [place] Monocytes (Bld) [#/Vol] 0.50 10*3/uL [place] Monocytes/100 WBC (Bld) 5 % 4 - 8 % [place] Platelet mean volume (Bld) [Entitic vol] NOT REPORTED 6 - 12 fL [place] Platelets (Bld) [#/Vol] NOT REPORTED [place] Platelets (Bld) [#/Vol] 208 10*3/uL [place] RBC (Bld) [#/Vol] 4.65 10*6/uL 4 - 5.2 m/uL [place] RBC morphology finding Nom (Bld) NOT REPORTED [place] Segmented neutrophils/100 WBC (Bld) 76 % High 47 - 75 % [place] Segs Absolute 7.70 [place] WBC (Bld) [#/Vol] NOT REPORTED per 100 WBC [place] WBC (Bld) [#/Vol] 10.0 10*3/uL [place] WBC Morphology NOT REPORTED [place] Otheron 07-24-2020 Immature granulocytes (Bld) [#/Vol] NOT REPORTED 0 % [place] Sedimentation Rateon 020 Sed Rate 6 mm 0 - 20 mm [place] Protein / creatinine ratio, urineon 06-07-2020 Creatinine, Ur 101.2 mg/dL 28 - 217 mg/dL [place] Protein (U) [Mass/Vol] 8 mg/dL [place], [place] Comment on above: No normal range esta blished. Urine Total Protein Creatinine Ratio 0.08 [place] Urinalysison 06-07-2020 Bilirubin Urine Negative NEGATIVE [place] Color, UA YELLOW YELLOW [place] Glucose, Ur 100 mg/dL Abnormal NEGATIVE [place] Interpretation and review of laboratory results Abnormal [place] Ketones Ql (U) Negative NEGATIVE [place] Leukocyte esterase Test strip Ql (U) Negative NEGATIVE [place] Nitrite, Urine Negative NEGATIVE [place] pH, UA 6.0 [place] Protein (U) [Mass/Vol] Negative NEGATIVE [place], [place] Specific [place], UA 1.020 [place], [place] Turbidity UA CLEAR CLEAR [place] Urinalysis Comments [place] Urine Hgb Negative NEGATIVE [place] Urobilinogen, Urine Normal Normal [place] Comprehensive Metabolic Pane lyn 05-25-2020 Albumin [Mass/Vol] 4.4 g/dL 3.5 - 5.2 g/dL [place] Albumin/Globulin [Mass ratio] NOT REPORTED [place] ALP [Catalytic activity/Vol] 87 U/L 35 - 104 U/L [place] ALT [Catalytic activity/Vol] 21 U/L 5 - 33 U/L [place] Anion gap [Moles/Vol] 10 mmol/L 9 - 17 mmol/L [place] AST [Catalytic activity/Vol] 22 U/L <32 [place] Bilirubin Ql (U) 0.32 mg/dL 0.3 - 1.2 mg/dL [place] Bun/Cre Ratio 18 [place] Calcium [Mass/Vol] 10.1 mg/dL 8.6 - 10. 4 mg/dL [place] Chloride [Moles/Vol] 104 mmol/L 98 - 10 7 mmol/L [place] CO2 [Moles/Vol] 26 mmol/L 20 - 31 mmol/L [place] Creatinine [Mass/Vol] 1.37 mg/dL High 0.5 - 0.9 mg/dL [place] GFR 52 mL/min Low >60 [place] GFR Non- 43 mL/min Low >60 [place] GFR/1.73 sq M predicted among non-blacks MDRD (S/P/Bld) [Vol rate/Area] NOT REPORTED [place] GFR/1.73 sq M predicted among non-blacks MDRD (S/P/Bld) [Vol rate/Area] [place] Comment on above: Average GFR for 40-4 9 years old: 99 mL/min/1.73sq m Chronic Kidney Disease: <60 mL/min/1.73sq m Kidney failure: <15 mL/min/1.73sq m eGFR calculated using average adult body mass. Additional eGFR calculator available at: http://www.Apieron.Medic Trace/multiple_crcl_2012.htm Glucose [Mass/Vol] 160 mg/dL High 70 - 99 mg/dL [place] Interpretation and review of laboratory results Abnormal [place] Potassium [Moles/Vol] 4.6 mmol/L 3.7 - 5.3 mmol/L [place] Protein [Mass/Vol] 7.4 g/dL 6.4 - 8.3 g/dL [place] Sodium [Moles/Vol] 140 mmol/L 135 - 144 mmol/L [place] Urea nitrogen [Mass/Vol] 24 mg/dL High 6 - 20 mg/dL [place] Hemoglobin A1Con 05-25-2020 Glucose [Mass/Vol] 123 mg/dL [place] Comment on above: The ADA and AACC rec ommend providing the estimated average glucose result to permit better patient understanding of their HBA1c result. HbA1c (Bld) [Mass fraction] 5.9 % 4 - 6 % [place] LDL Cholesterol, Directon Cholesterol in LDL [Mass/Vol] 58 mg/dL <100 [place] Lipid Panelon 05-25-2020 Cholesterol [Mass/Vol] 194 mg/dL <200 [place] Comment on above: Cholesterol Guidelines: <200 Desirable 200-240 Borderline >240 Undesirable Cholesterol in HDL [Mass/Vol] 27 mg/dL Low >40 [place] Comment on above: HDL Guidelines: <40 Undesirable 40-59 Borderline >59 Desirable Cholesterol in LDL [Mass/Vol] 0 - 130 mg/dL [place] Comment on above: Calculation not jacqueline d for Triglyceride value greater than 400 mg/dL. Direct LDL reflexed LDL Guidelines: <100 Desirable 100-129 Near to/above Desirable 130-159 Borderline >159 Undesirable Direct (measured) LDL and calculated LDL are not interchangeable tests. Cholesterol in VLDL [Mass/Vol] NOT REPORTED 1 - 30 mg/dL [place] Cholesterol.total/Chol esterol in HDL [Mass ratio] 7.2 {ratio} High <5 [place] Interpretation and review of laboratory results Abnormal [place] Triglyceride [Mass/Vol] 1112 mg/dL High <150 [place] Comment on above: Triglyceride Guidelines: <150 Desirable 150-199 Borderline 200-499 High >499 Very high Based on AHA Guidelines for fasting triglyceride, July 2012. Patient Fasting?on 0 Patient Fasting? YES [place] Vitamin D 25 Hydroxyon 05-25 Vit D, 25-Hydroxy 30.2 ng/mL 30 - 100 ng/mL [place] Comment on above: Reference Range: Vitamin D status Range Deficiency <20 ng/mL Mild Deficiency 20-30 ng/mL Sufficiency 30-100 ng/mL Toxicity >100 ng/mL C-Reactive Proteinon 020 CRP [Mass/Vol] 6.2 mg/L High 0 - 5 mg/L [place] Interpretation and review of laboratory results Abnormal [place] Hemoglobin [id number] By: Kevin delgado Edentemi on 09-24-2019 Glucose [Mass/Vol] 108 mg/dL [employer] Phone: Comment on above: The ADA and AACC rec ommend providing the estimated average glucose result to permit better patient understanding of their HBA1c result. HbA1c (Bld) [Mass fraction] 5.4 % 4.8 - 5.9 % [employer] Phone: Homocysteine, SerumOrdered B y: Janel Allen on 09-24-2019 Homocysteine 9 umol/L <15.0 [employer] Phone: TSH without ReflexOrdered By : Janel Allen on 09-24-2019 TSH Qn 1.03 m[IU]/L [employer] Phone: Vitamin B12 & FolateOrdered By: Janel Tiffany on 09-24-2019 Cobalamin (Vitamin B12) [Mass/Vol] 292 pg/mL 232 - 1245 pg/mL [employer] Phone: Folate 13.8 ng/mL >4.8 [employer] Phone: XR CERVICAL SPINE (4-5 VIEWS )on 07-29-2019 Mild degenerative changes cervical spine not unusual for age. Refer to the MRI [facility] services 02/03/2019 with some of the findings discussed above. [place] EXAM: XR CERVICAL SPINE (4-5 VIEWS) HISTORY: Reason for exam:->history MRSA discitis of thoracic region. New tingling and numbness of fingers COMPARISON: MRI cervical spine [facility] 02/03/2019, cervical spine series 04/03/2010. The [...] Swimmer's lateral view shows no additional abnormality. 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 New tingling and numbness of fingers COMPARISON: MRI cervical spine [facility] 02/03/2019, cervical spine series 04/03/2010. The [...] unusual for age. Refer to the [facility] services 02/03/2019 with some of the findings discussed above. [place] C-Reactive ProteinOrdered By : Azalea Knight on 07-28-2019 CRP [Mass/Vol] 6.4 mg/L High 0 - 5 mg/L [place] Interpretation and review of laboratory results Abnormal [place] CBC With Auto DifferentialOr dered By: Azalea Knight on 07-28-2019 Absolute Eos # 0.10 [place] Absolute Immature Granulocyte NOT REPORTED [place] Absolute Lymph # 2.10 [place] Absolute [place] # 0.50 [place], [place] Basophils (Bld) [#/Vol] 0.00 10*3/uL [place] Basophils/100 WBC (Bld) 1 % 0 - 2 % [place] Differential Type YES [place], [place] Eosinophils/100 WBC (Bld) 1 % 0 - 5 % [place] Erythrocyte distribution width (RBC) [Ratio] 14.5 % 12.1 - 15.2 % [place] Hematocrit (Bld) [Volume fraction] 38.1 % 36 - 46 % [place] Hemoglobin (Bld) [Mass/Vol] 12.9 g/dL 12 - 16 g/dL [place] Immature Granulocytes NOT REPORTED 0 % [place], [place] Lymphocytes/100 WBC (Bld) 34 % 15 - 40 % [place] MCH (RBC) [Entitic mass] 29.5 pg 26 - 34 pg [place] MCHC (RBC) [Mass/Vol] 33.9 g/dL 31 - 37 g/dL [place], [place] MCV (RBC) [Entitic vol] 87.1 fL 80 - 100 fL [place] Monocytes/100 WBC (Bld) 8 % 4 - 8 % [place] MPV NOT REPORTED 6 - 12 fL [place] NRBC Automated NOT REPORTED per 100 WBC [place] Platelet Estimate NOT REPORTED [place] Platelets (Bld) [#/Vol] 222 10*3/uL [place] RBC (Bld) [#/Vol] 4.38 10*6/uL 4 - 5.2 m/uL [place] RBC morphology finding Nom (Bld) NOT REPORTED [place] Segmented neutrophils/100 WBC (Bld) 56 % 47 - 75 % [place] Segs Absolute 3.50 [place] WBC (Bld) [#/Vol] 6.2 10*3/uL [place] WBC Morphology NOT REPORTED [place] Sedimentation RateOrdered By : Azalea Knight on 07-28-2019 Sed Rate 19 mm 0 - 30 mm [place] C-Reactive Proteinon 019 CRP [Mass/Vol] 7.3 mg/L High 0 - 5 mg/L [place] Interpretation and review of laboratory results Abnormal [place] Albuminon 06-17-2019 Albumin [Mass/Vol] 4.3 g/dL 3.5 - 5.2 g/dL [place] BUN & Creatinineon 9 Creatinine [Mass/Vol] 1.27 mg/dL High 0.5 - 0.9 mg/dL [place] GFR 56 mL/min Low >60 [place] GFR Non- 47 mL/min Low >60 [place] GFR/1.73 sq M predicted among non-blacks MDRD (S/P/Bld) [Vol rate/Area] NOT REPORTED [place] GFR/1.73 sq M predicted among non-blacks MDRD (S/P/Bld) [Vol rate/Area] [place] Comment on above: Average GFR for 40-4 9 years old: 99 mL/min/1.73sq m Chronic Kidney Disease: <60 mL/min/1.73sq m Kidney failure: <15 mL/min/1.73sq m eGFR calculated using average adult body mass. Additional eGFR calculator available at: http://www.Priccut/multiple_crcl_2012.htm Interpretation and review of laboratory results Abnormal [place] Urea nitrogen [Mass/Vol] 18 mg/dL 6 - 20 mg/dL [place] Calciumon 06-17-2019 Calcium [Mass/Vol] 10.4 mg/dL 8.6 - 10. 4 mg/dL [place] Electrolyte Panelon 06-17-20 19 Anion gap [Moles/Vol] 13 mmol/L 9 - 17 mmol/L [place] Chloride [Moles/Vol] 103 mmol/L 98 - 10 7 mmol/L [place] CO2 [Moles/Vol] 24 mmol/L 20 - 31 mmol/L [place] Potassium [Moles/Vol] 3.8 mmol/L 3.7 - 5.3 mmol/L [place] Sodium [Moles/Vol] 140 mmol/L 135 - 144 mmol/L [place] Hemoglobin and Hematocrit, B loodon 06-17-2019 Hematocrit (Bld) [Volume fraction] 35.4 % Low 36 - 46 % [place] Hemoglobin (Bld) [Mass/Vol] 12.1 g/dL 12 - 16 g/dL [place] Interpretation and review of laboratory results Abnormal [place] Magnesiumon 06-17-2019 Magnesium [Mass/Vol] 2.3 mg/dL 1.6 - 2 .6 mg/dL [place] Microscopic Urinalysison Amorphous, UA NOT REPORTED None [place] Bacteria, UA 1+ Abnormal None [place] Casts UA NOT REPORTED /LPF [place] Crystals UA NOT REPORTED None /HPF [place] Epithelial Cells UA 2 TO 5 /HPF [place] Interpretation and review of laboratory results Abnormal [place] Mucus, UA NOT REPORTED None [place] Other Observations UA NOT REPORTED NOT REQ. M [place] RBC (U) [#/Vol] NOT REPORTED [place], [place] Renal Epithelial, Urine NOT REPORTED 0 /HPF [place] Trichomonas, UA NOT REPORTED None [place], [place] WBC, UA 0 TO 2 0 /HPF [place] Yeast, UA NOT REPORTED None [place], [place] - [place] Phosphoruson 06-17-2019 Phosphate [Mass/Vol] 3.0 mg/dL 2.6 - 4 .5 mg/dL [place] Protein / creatinine ratio, urineon 06-17-2019 Creatinine, Ur 228.2 mg/dL High 28 - 217 mg/dL [place] Interpretation and review of laboratory results Abnormal [place] Protein (U) [Mass/Vol] 18 mg/dL [place], [place] Comment on above: No normal range esta blished. Urine Total Protein Creatinine Ratio 0.08 [place] Sedimentation Rateon 019 Sed Rate 24 mm 0 - 30 mm [place] Urinalysison 06-17-2019 Bilirubin Urine Negative NEGATIVE [place] Color, UA YELLOW YELLOW [place] Glucose, Ur Negative NEGATIVE [place] Interpretation and review of laboratory results Abnormal [place] Ketones Ql (U) Negative NEGATIVE [place] Leukocyte esterase Test strip Ql (U) Negative NEGATIVE [place] Nitrite, Urine Negative NEGATIVE [place] pH, UA 6.0 [place] Protein (U) [Mass/Vol] TRACE Abnormal NEGATIVE [place] Specific [place], UA 1.025 [place], [place] Turbidity UA HAZY Abnormal CLEAR [place] Urinalysis Comments [place] Urine Hgb Negative NEGATIVE [place] Urobilinogen, Urine Normal Normal [place] MR CERVICAL SPINE WITHOUT CO NTRASTon [...] be due to myelomalacia or cord edema. /[facility] [place] Workstation ID: [id number] [facility] EXAMINATION: MR CERVICAL SPINE WITHOUT CONTRAST HISTORY: [...] creating probable mild left-sided neural foraminal stenosis. [facility] [employer] - 02/03/2019 [...] be due to myelomalacia or cord edema. /[facility] [place] Workstation ID: [id number] [facility] MR CERVICAL SPINE WITHOUT CONTRAST EXAMINATION: MR [...] be due to myelomalacia or cord edema. /[facility] [place] Workstation ID: [id number] Dictated by: RONALD MCCRAY on ThuFebruary 03, 2019 10:34:16 AM EDT Transcribed by: FELICITY DE JESUS on ThuFebruary 03, 2019 10:58:51 AM EDT Finalized by: RONALD MCCRAY on ThuFebruary 03, 2019 10:59:35 AM EDT [facility] Comment on above: Order Comment: Reaso [...] GROWTH 48 DAYS Report Status FINAL 10/11/2018 [facility] Comment on above: Performed By: #### T ROPI #### [employer] [address] [place] [address] [id number] Cult,Mycobacteria Specimen Description .SPINE .TISSUE T4 LAMINA Special Requests NOT REPORTED Direct Exam NO ACID FAST BACILLI SEEN (DIRECT SMEAR) Culture NO GROWTH 48 DAYS Report Status FINAL 10/11/2018 [facility] Comment on above: Performed By: #### L ACWB #### [employer] [address] [place] [address] [id number] Cult,Funguson 09-27-2018 Cult,Fungus Specimen Description .TISSUE EPIDURAL TISSUE Special Requests NOT REPORTED Culture NO GROWTH 34 DAYS Report Status FINAL 09/27/2018 [facility] Comment on above: Performed By: #### L ACWB #### [facility] [address] [place], [place] [id number] Cult,Fungus Specimen Description .SPINE .TISSUE T4 LAMINA Special Requests NOT REPORTED Culture NO GROWTH 34 DAYS Report Status FINAL 09/27/2018 [facility] Comment on above: Performed By: #### L ACWB #### [facility] [address] [place] [address] BUNon 09-23-2018 Urea nitrogen mass conc 20 mg/dL Normal - [facility] Comment on above: Performed By: #### 2 [id number] ####[employer] [id number] [place] [address] Creatinineon 09-23-2018 Creatinine mass conc 1.3 mg/dL High 0.5-1.1 [facility] Comment on above: Performed By: #### 2 [id number] ####[employer] [address] [place] [address] eGFRon 09-23-2018 eGFR AA 54 mL/min/1.73 m2 [facility] Comment on above: Order Comment: Order added by Discern Expert. Performed By: #### 2 [id number] ####[employer] [address] [place] [address] GFR/1.73 sq M predicted among non-blacks MDRD vol rate/area (S/P/Bld) 45 mL/min/1.73 m2 [facility] Comment on above: Order Comment: Order added by Discern Expert. Performed By: #### 2 [id number] ####[employer] [address] [place] [address] Auto Diffon 09-20-2018 Basophils Auto #/vol (Bld) 0.0 E3/mcL Normal 0.0-0.2 [facility] Comment on above: Order Comment: Order Added by Discern Expert. Performed By: #### 2 [id number] ####[employer] [address] [place] [address] Basophils/100 WBC Auto (Bld) 1.1 % Normal 0.0-2.0 [facility] Comment on above: Order Comment: Order Added by Discern Expert. Performed By: #### 2 [id number] ####[employer] [address] [place] [address] Eos Absolute 0.0 E3/mcL Normal 0.0-0.7 [facility] Comment on above: Order Comment: Order Added by Discern Expert. Performed By: #### 2 [id number] ####[employer] [address] [place] [address] Eosinophils/100 WBC Auto (Bld) 0.3 % Normal 0.0-11.0 [facility] Comment on above: Order Comment: Order Added by Discern Expert. Performed By: #### 2 [id number] ####[employer] [address] [place] [address] Lymphocytes Auto #/vol (Bld) 1.2 E3/mcL Normal 1.2-3.4 [facility] Comment on above: Order Comment: Order Added by Discern Expert. Performed By: #### 2 [id number] ####[employer] [address] [place] [address] Lymphocytes/100 WBC Auto (Bld) 30.6 % Normal 20.0-55.0 [facility] Comment on above: Order Comment: Order Added by Discern Expert. Performed By: #### 2 [id number] ####[employer] [address] [place] [address] [place] Absolute 0.4 E3/mcL Normal 0.0-0.7 [facility] Comment on above: Order Comment: Order Added by Discern Expert. Performed By: #### 2 [id number] ####[employer] [address] [place] [address] Monocytes/100 WBC Auto (Bld) 10.2 % High 0.0-10.0 [facility] Comment on above: Order Comment: Order Added by Discern Expert. Performed By: #### 2 [id number] ####[employer] [address] [place] [address] Neutro Absolute 2.3 E3/mcL Normal 1.4-6.5 [facility] Comment on above: Order Comment: Order Added by Discern Expert. Performed By: #### 2 [id number] ####[employer] [address] [place] [address] Neutro Auto 57.8 % Normal 37.0-75.0 [facility] Comment on above: Order Comment: Order Added by Discern Expert. Performed By: #### 2 [id number] ####[employer] [address] [place] [address] CBC w/ Auto Diffon 8 Erythrocyte distribution width Auto Ratio (RBC) 19.9 % High 11.5-14.5 [facility] Comment on above: Performed By: #### 2 [id number] ####[employer] [address] [place] [address] Hematocrit Auto Volume Fraction (Bld) 26.5 % Low 36.0-48.0 [facility] Comment on above: Performed By: #### 2 [id number] ####[employer] [address] [place] [address] Hemoglobin mass conc (Bld) 8.7 g/dL Low 12.0-16.0 [facility] Comment on above: Performed By: #### 2 [id number] ####[employer] [address]msPalt[address] [place] [address] MCH Auto Entitic mass (RBC) 29.6 pg Normal 27.0-31.0 [facility] Comment on above: Performed By: #### 2 [id number] ####[employer] [address] [place] [address] MCHC Auto mass conc (RBC) 32.9 g/dL Low 33.0-37.0 [facility] Comment on above: Performed By: #### 2 [id number] ####[employer] [address] [place] [address] MCV Auto Entitic volume (RBC) 89.8 fL Normal 78.0-100.0 [facility] Comment on above: Performed By: #### 2 [id number] ####[employer] [address] [place] [address] Platelet mean volume Auto Entitic volume (Bld) 10.5 fL Normal 7.4-11.0 [facility] Comment on above: Performed By: #### 2 [id number] ####[employer] [address] [place] [address] Platelets Auto #/vol (Bld) 117 E3/mcL Low 130-400 [facility] Comment on above: Performed By: #### 2 [id number] ####[employer] [address] [place] [address] RBC Auto #/vol (Bld) 2.95 E6/mcL Low 3.90-5.40 [facility] Comment on above: Performed By: #### 2 [id number] ####[employer] [address] [place] [address] WBC Auto #/vol (Bld) 4.0 E3/mcL Normal 3.6-11.0 [facility] Comment on above: Performed By: #### 2 [id number] ####[employer] [address] [place] [address] CRPon 09-20-2018 CRP mass conc 0.83 mg/dL Normal 0.00-1.00 [facility] Comment on above: Performed By: #### 2 [id number] ####[employer] [address] [place] [address] Morphon 09-20-2018 Anisocytosis Auto Ql (Bld) 1+ Normal [facility] Comment on above: Order Comment: Order Added by Discern Expert. Performed By: #### 1 [id number] ####[employer] [address] [place] [address] Hypochromasia 1+ Normal [facility] Comment on above: Order Comment: Order Added by Discern Expert. Performed By: #### 1 [id number] ####[employer] [address] [place] [address] RBC morphology finding Nom (Bld) SEE MORPHOLOGY Normal [facility] Comment on above: Order Comment: Order Added by Discern Expert. Performed By: #### 1 [id number] ####OVIDIO [id number] [place] [address] Sed Rate Automatedon 018 Sed Rate Automated 15 mm/hr Normal [facility] Comment on above: Result Comment: AGE- SPECIFIC REFERENCE RANGES FOR SEDIMENTATION RATE AUTOMATED REFERENCE RANGE - MM/HR AGE MEN WOMEN 0-2 0-2 - PUBERTY 3-13 3-13 PUBERTY - 50 YRS 0-15 0-20 > 50 YRS 0-20 0-30 Performed By: #### 1 [id number] ####OVIDIO Hematology Manual [id number] [place] [address] zzplt morphon 09-20-2018 Platelet morphology finding Nom (Bld) NORMAL Normal [facility] Comment on above: Performed By: #### [id number] ####OVIDIO [id number] [place] [address] Platelets Auto #/vol (Bld) NORMAL Normal [facility] Comment on above: Performed By: #### 9 [id number] ####OVIDIO [id number] [place] [address] BLOOD UREA NITROGENon 2017 Urea nitrogen mass conc (Bld) 19 mg/dL Normal 7-20 [facility] Comment on above: Performed By: #### A CBC, ESR, BUN, CREAT, CREACT, FX ####Testing performed at [address] [address] C REACTIVE PROTEINon 018 CRP mass conc 18.5 mg/L High 0-10.0 [facility] Comment on above: Performed By: #### A CBC, ESR, BUN, CREAT, CREACT, FX ####Testing performed at [address] [address] CBCon 09-13-2018 ABSOLUTE BAS 0.1 X10 Normal [facility] Comment on above: Performed By: #### A CBC, ESR, BUN, CREAT, CREACT, FX ####Testing performed at [address] [address] ABSOLUTE EOS 0.20 X10 Normal [facility] Comment on above: Performed By: #### A CBC, ESR, BUN, CREAT, CREACT, FX ####Testing performed at [address] [address] ABSOLUTE NEUTROPHIL COUNT 2.5 x10 Normal 1.0-7.0 [facility] Comment on above: Performed By: #### A CBC, ESR, BUN, CREAT, CREACT, FX ####Testing performed at [address] [address] Basophils/100 WBC Auto (Bld) 1.4 % Normal 0.0-2.0 [facility] Comment on above: Performed By: #### A CBC, ESR, BUN, CREAT, CREACT, FX ####Testing performed at [address] [address] DTYPE AUTO DIFF Normal [facility] Comment on above: Performed By: #### A CBC, ESR, BUN, CREAT, CREACT, FX ####Testing performed at [address] [address] Eosinophils/100 WBC Auto (Bld) 3.5 % Normal 0.0-11.0 [facility] Comment on above: Performed By: #### A CBC, ESR, BUN, CREAT, CREACT, FX ####Testing performed at [address] [address] Lymphocytes Auto #/vol (Bld) 1.10 X10 Normal [facility] Comment on above: Performed By: #### A CBC, ESR, BUN, CREAT, CREACT, FX ####Testing performed at [address] [address] Lymphocytes/100 WBC Auto (Bld) 27.0 % Normal 20.0-55.0 [facility] Comment on above: Performed By: #### A CBC, ESR, BUN, CREAT, CREACT, FX ####Testing performed at [address] [address] Monocytes Auto #/vol (Bld) 0.4 X10 Normal [facility] Comment on above: Performed By: #### A CBC, ESR, BUN, CREAT, CREACT, FX ####Testing performed at [address] [address] Monocytes/100 WBC Auto (Bld) 9.4 % Normal 0.0-10.0 [facility] Comment on above: Performed By: #### A CBC, ESR, BUN, CREAT, CREACT, FX ####[place] [address] Neutrophils/100 WBC Auto (Bld) 58.7 % Normal 37.0-75.0 [facility] Comment on above: Performed By: #### A CBC, ESR, BUN, CREAT, CREACT, FX ####[place] [address] Erythrocyte distribution width Auto Ratio (RBC) 17.6 % High 11.5-14.5 [facility] Comment on above: Performed By: #### A CBC, ESR, BUN, CREAT, CREACT, FX ####[place] [address] Hematocrit Auto Volume Fraction (Bld) 26.2 % Low 36.0-48.0 [facility] Comment on above: Performed By: #### A CBC, ESR, BUN, CREAT, CREACT, FX ####[place] [address] Hemoglobin mass conc (Bld) 8.8 g/dL Low 12.0-16.0 [facility] Comment on above: Performed By: #### A CBC, ESR, BUN, CREAT, CREACT, FX ####[place] [address] MCH Auto Entitic mass (RBC) 29.3 pg Normal 26.0-35.0 [facility] Comment on above: Performed By: #### A CBC, ESR, BUN, CREAT, CREACT, FX ####[place] [address] MCHC Auto mass conc (RBC) 33.7 g/dL Normal 27.0-37.0 [facility] Comment on above: Performed By: #### A CBC, ESR, BUN, CREAT, CREACT, FX ####[place] [address] MCV Auto Entitic volume (RBC) 86.9 fL Normal 80.0-100.0 [facility] Comment on above: Performed By: #### A CBC, ESR, BUN, CREAT, CREACT, FX ####[place] [address] Platelet mean volume Auto Entitic volume (Bld) 10.1 fL Normal 7.4-11.0 [facility] Comment on above: Performed By: #### A CBC, ESR, BUN, CREAT, CREACT, FX ####[place] [address] Platelets Auto #/vol (Bld) 130 /cmm Normal 130.0-400.0 [facility] Comment on above: Performed By: #### A CBC, ESR, BUN, CREAT, CREACT, FX ####[place] [address] RBC Auto #/vol (Bld) 3.01 /cmm Low 4.0-5.4 [facility] Comment on above: Performed By: #### A CBC, ESR, BUN, CREAT, CREACT, FX ####[place] [address] WBC Auto #/vol (Bld) 4.2 /cmm Normal 3.6-11.0 [facility] Comment on above: Performed By: #### A CBC, ESR, BUN, CREAT, CREACT, FX ####[place] [address] CREATININE,SERUMon 8 Creatinine mass conc 1.5 mg/dL High 0.52-1.04 [facility] Comment on above: Performed By: #### A CBC, ESR, BUN, CREAT, CREACT, FX ####Testing performed at [place] [id number] EST. GFR, 50 ml/min/1.73sq.m [facility] Comment on above: Performed By: #### A CBC, ESR, BUN, CREAT, CREACT, FX ####Testing performed at [place] [id number] EST. GFR,Non 41 ml/min/1.73sq.m [facility] Comment on above: Performed By: #### A CBC, ESR, BUN, CREAT, CREACT, FX ####[place] [address] GFR/1.73 sq M predicted among non-blacks MDRD vol rate/area (S/P/Bld) Average GFR for 30-39 years old = 109. [facility] Comment on above: Result Comment: Mutuel Teller vasu Kidney disease, GFR = <60.Kidney failure, GFR = <15.The GFR estimate is not adjusted for extreme body surface area or acute process, nor has it been validated for women or ethnic groups other than and . Performed By: #### A CBC, ESR, BUN, CREAT, CREACT, FX ####[place] [address] ESRon 09-13-2018 ESR Velocity (Bld) 49 mm/h High 0-15 [facility] Comment on above: Performed By: #### A CBC, ESR, BUN, CREAT, CREACT, FX ####[place] [address] FAX REQUESTon 09-13-2018 FAX TO FAX TO DR HARTMAN AT [phone] AND TO [facility] AT [phone] [facility] Comment on above: Performed By: #### P HY, BUN, CREAT, FX ####Testing performed at [place] [id number] FAX REQUESTon 09-06-2018 FAX TO [phone] [facility] Comment on above: Performed By: #### F X ####Testing performed at [address] [address] BLOOD UREA NITROGENon 2017 Urea nitrogen mass conc (Bld) 21 mg/dL High 7-20 [facility] Comment on above: Performed By: #### P HY, BUN, CREAT, FX ####Testing performed at [address] [address] CREATININE,SERUMon 8 Creatinine mass conc 1.4 mg/dL High 0.52-1.04 [facility] Comment on above: Performed By: #### P HY, BUN, CREAT, FX ####Testing performed at [place] [id number] EST. GFR, 54 ml/min/1.73sq.m [facility] Comment on above: Performed By: #### P HY, BUN, CREAT, FX ####[place] [address] EST. GFR,Non 44 ml/min/1.73sq.m [facility] Comment on above: Performed By: #### P HY, BUN, CREAT, FX ####[place] [address] GFR/1.73 sq M predicted among non-blacks MDRD vol rate/area (S/P/Bld) Average GFR for 30-39 years old = 109. [facility] Comment on above: Result Comment: Mutuel Teller vasu Kidney disease, GFR = <60.Kidney failure, GFR = <15.The GFR estimate is not adjusted for extreme body surface area or acute process, nor has it been validated for women or ethnic groups other than and . Performed By: #### P HY, BUN, CREAT, FX ####Testing performed at [place] [id number] FAX REQUESTon 08-31-2018 FAX TO [phone] [facility] Comment on above: Performed By: #### P HY, BUN, CREAT, FX ####Testing performed at [address] [address] GAL MELISA PHYSICIANon 08-31-20 18 GAL [facility] PHYSICIAN DEVAN UP [facility] Comment on above: Performed By: #### P HY, BUN, CREAT, FX ####Testing performed at [address] [address] BUNon 08-27-2018 Urea nitrogen mass conc 24 mg/dL High - [facility] Comment on above: Performed By: #### 2 [id number] ####OVIDIO [id number] [place] [address] Creatinineon 08-27-2018 Creatinine mass conc 1.6 mg/dL High 0.5-1.1 [facility] Comment on above: Performed By: #### 2 [id number] ####OVIDIO [id number] [place] [address] eGFRon 08-27-2018 eGFR AA 43 mL/min/1.73 m2 [facility] Comment on above: Order Comment: Order added by Discern Expert. Performed By: #### 1 [id number] ####OVIDIO [id number] [place] [address] GFR/1.73 sq M predicted among non-blacks MDRD vol rate/area (S/P/Bld) 36 mL/min/1.73 m2 [facility] Comment on above: Order Comment: Order added by Discern Expert. Performed By: #### 1 [id number] ####OVIDIO [id number] [place] [address] Cult,Tissueon 08-26-2018 Cult,Tissue Specimen Description .TISSUE EPIDURAL [...] Trimethoprim/Sulfa <=10 SUSCEPTIBLE Vancomycin <=0.5 SUSCEPTIBLE Normal [facility] Comment on above: Performed By: #### L ACWB #### [facility] [address] [place] [address] Cult,Tissue Specimen Description .SPINE .TISSUE T4 [...] Trimethoprim/Sulfa <=10 SUSCEPTIBLE Vancomycin <=0.5 SUSCEPTIBLE Normal [facility] Comment on above: Performed By: #### L ACWB #### [address] [address] Basic Metabolic Profon 08-25 (cont.) Normal [facility] Comment on above: Result Comment: Aver age GFR for 30-39 years old: 107 mL/min/1.73sq m Chronic Kidney Disease: <60 mL/min/1.73sq m Kidney failure: <15 mL/min/1.73sq m eGFR calculated using average adult body mass. Additional eGFR calculator available at: http://www.Priccut/multiple_crcl_2012.htm Performed By: #### L ACWB #### [facility] [address] [place] [address] Anion gap molar conc 14 mmol/L Normal 9-17 [facility] Comment on above: Performed By: #### L ACWB #### [facility] [address] [place] [address] Calcium mass conc 9.1 mg/dL Normal 8.6-10.4 [facility] Comment on above: Performed By: #### L ACWB #### [facility] [address] [place] [address] Chloride molar conc 96 mmol/L Low 98-107 [facility] Comment on above: Performed By: #### L ACWB #### [facility] [address] [place] [address] CO2 molar conc 23 mmol/L Normal 20-31 [facility] Comment on above: Performed By: #### L ACWB #### [facility] [address] [place] [address] Creatinine mass conc 1.52 mg/dL High 0.50-0.90 [facility] Comment on above: Performed By: #### L ACWB #### [facility] [address] [place] [address] GFR, Amer 46 mL/min Low >60 [facility] Comment on above: Performed By: #### L ACWB #### [facility] [address] [place] [address] GFR,non Amer 38 mL/min Low >60 [facility] Comment on above: Performed By: #### L ACWB #### [facility] [address] [place] [address] Glucose mass conc 95 mg/dL Normal 70-99 [facility] Comment on above: Performed By: #### L ACWB #### [facility] [address] [place] [address] Potassium molar conc 4.5 mmol/L Normal 3.7-5.3 [facility] Comment on above: Performed By: #### L ACWB #### [facility] [address] [place] [address] Sodium molar conc 133 mmol/L Low 135-144 [facility] Comment on above: Performed By: #### L ACWB #### [facility] [address] [place] [address] Urea nitrogen mass conc 43 mg/dL High 6-20 [facility] Comment on above: Performed By: #### L ACWB #### [facility] [address] [place] [address] BUN/CRE Ratio NOT REPORTED Normal 9- [facility] Comment on above: Performed By: #### L ACWB #### [address] [address] Staging: NOT REPORTED Normal [facility] Comment on above: Performed By: #### L ACWB #### [address] [address] CBC with Diffon 08-25-2018 Abs. Basophil 0.07 k/uL Normal 0.00-0.20 [facility] Comment on above: Performed By: #### L ACWB #### [address] [address] Abs.Imm.Granulocyte 0.08 k/uL Normal 0.00-0.30 [facility] Comment on above: Performed By: #### L ACWB #### [address] [address] Abs.Neutrophil (Seg) 5.77 k/uL Normal 1.50-8.10 [facility] Comment on above: Performed By: #### L ACWB #### [address] [address] Basophils/100 WBC (Bld) 1 % Normal 0-2 [facility] Comment on above: Performed By: #### L ACWB #### [address] [address] Eosinophils #/vol (Bld) 0.12 10*3/uL Normal 0.00-0.44 [facility] Comment on above: Performed By: #### L ACWB #### [address] [address] Eosinophils/100 WBC (Bld) 1 % Normal 1-4 [facility] Comment on above: Performed By: #### L ACWB #### [address] [address] Immature granulocytes #/vol (Bld) 1 % High 0 [facility] Comment on above: Performed By: #### L ACWB #### [address] [address] Lymphocytes #/vol (Bld) 1.83 10*3/uL Normal 1.10-3.70 [facility] Comment on above: Performed By: #### L ACWB #### [facility] [address] [place] [address] Lymphocytes/100 WBC (Bld) 21 % Low 24-43 [facility] Comment on above: Performed By: #### L ACWB #### [address] [address] Monocytes #/vol (Bld) 0.92 10*3/uL Normal 0.10-1.20 [facility] Comment on above: Performed By: #### L ACWB #### [facility] [address] [place] [address] Monocytes/100 WBC (Bld) 11 % Normal 3-12 [facility] Comment on above: Performed By: #### L ACWB #### [facility] [address] [place] [address] Neutrophil (Seg) 66 % High 36-65 [facility] Comment on above: Performed By: #### L ACWB #### [facility] [address] [place] [address] Erythrocyte distribution width Ratio (RBC) 14.6 % High 11.8-14.4 [facility] Comment on above: Performed By: #### L ACWB #### [address] [address] Hematocrit Volume Fraction (Bld) 32.6 % Low 36.3-47.1 [facility] Comment on above: Performed By: #### L ACWB #### [address] [address] Hemoglobin mass conc (Bld) 10.0 g/dL Low 11.9-15.1 [facility] Comment on above: Performed By: #### L ACWB #### [address] [address] MCH Entitic mass (RBC) 28.2 pg Normal 25.2-33.[address] [facility] Comment on above: Performed By: #### L ACWB #### [address] [address] MCHC mass conc (RBC) 30.7 g/dL Normal 28.4-34.8 [facility] Comment on above: Performed By: #### L ACWB #### [address] [address] MCV Entitic volume (RBC) 91.8 fL Normal 82.6-102.9 [facility] Comment on above: Performed By: #### L ACWB #### [address] [address] NRBC Automated 0.0 per 100 WBC Normal 0.0 [facility] Comment on above: Performed By: #### L ACWB #### [address] [address] Platelet mean volume Entitic volume (Bld) 10.4 fL Normal 8.1-13.5 [facility] Comment on above: Performed By: #### L ACWB #### [address] [address] Platelets #/vol (Bld) 292 10*3/uL Normal 138-[address] [facility] Comment on above: Performed By: #### L ACWB #### [address] [address] RBC #/vol (Bld) 3.55 10*6/uL Low 3.95-5.11 [facility] Comment on above: Performed By: #### L ACWB #### [address] [address] RBC morphology finding Nom (Bld) ANISOCYTOSIS PRESENT Normal [facility] Comment on above: Performed By: #### L ACWB #### [address] [address] WBC #/vol (Bld) 8.8 10*3/uL Normal 3.5-11.3 [facility] Comment on above: Performed By: #### L ACWB #### [address] [address] Auto Diff Performed NOT REPORTED Normal [facility] Comment on above: Performed By: #### L ACWB #### [address] [address] Platelets #/vol (Bld) NOT REPORTED Normal [facility] Comment on above: Performed By: #### L ACWB #### [address] [address] WBC Morphology NOT REPORTED Normal [facility] Comment on above: Performed By: #### L ACWB #### [address] [address] Fungi,Direct Examon 08-25-20 18 Fungi,Direct Exam Specimen Description .SPINE .TISSUE T4 LAMINA Special Requests NOT REPORTED Direct Exam NO FUNGAL ELEMENTS SEEN Report Status FINAL 08/25/2018 Normal [facility] Comment on above: Performed By: #### L ACWB #### [facility] [place] [address] Magnesiumon 08-25-2018 Magnesium mass conc 2.4 mg/dL Normal 1.6-2.6 [facility] Comment on above: Performed By: #### L ACWB #### [facility] [address] [place] [address] Procalcitoninon 08-25-2018 Protein mass conc 0.13 ng/mL High <0.09 [facility] Comment on above: Result Comment: Suspected [...] entered into the Change in Procalcitonin Calculator (www.ukdqex-xok-ugfklordyr.Medic Trace) to determine the patient's Mortality Risk Prognosis Performed By: #### L ACWB #### [address] [address] Cult,Aerobe/Anaerobeon 08-24 Cult,Aerobe/Anaerobe Specimen Description .SPINE Special Requests NOT REPORTED Direct Exam DUPLICATE ORDER SEE RESULTS FOR TISSUE CULTURE Culture NOT REPORTED Report Status FINAL 08/24/2018 Normal [facility] Comment on above: Performed By: #### S PAG #### [facility] [address] [place] [address] Cult,Aerobe/Anaerobe Specimen Description .SPINE Special Requests NOT REPORTED Direct Exam DUPLICATE ORDER SEE RESUULTS FOR TISSUE CULTURE Culture NOT REPORTED Report Status FINAL 08/24/2018 Normal [facility] Comment on above: Performed By: #### S PAG #### [facility] [address] [place] [address] FLUORO FOR SURGICAL PROCEDUR ESon 08-24-2018 FLUORO FOR SURGICAL PROCEDURES Radiology exam is complete. No Radiologist dictation. Please follow up with ordering provider. Final result Normal [facility] OPERATIVE REPORTon 8 OPERATIVE REPORT [facility] [address] [place] [address] OPERATIVE REPORT PATIENT NAME: CELINA GASPAR : 1980 MED REC NO: [id number] ROOM: 0431 ACCOUNT NO: [id number] ADMIT DATE: 08/15/2018 PROVIDER: Lita Mccray MD DATE OF PROCEDURE: 08/23/2018 SURGEON: Lita Mccray MD REBAR WORKER: Eliel Larios DO PREOPERATIVE DIAGNOSIS: Epidural abscess, T3, T4, T5. POSTOPERATIVE DIAGNOSES: Epidural abscess, T3, T4, T5 with chronic granulation, T3, T4, T5. OPERATIONS/PROCEDUR ES: Decompressive laminectomy, T4, with partial T3 and [...] room in satisfactory condition. LITA MCCRAY MD CAT/Beulah_SSNCK_I Doc#: [id number] CC: Lita Mccray MD Normal [facility] Procalcitoninon 08-24-2018 Protein mass conc 0.16 ng/mL High <0.09 [facility] Comment on above: Result Comment: Suspected [...] entered into the Change in Procalcitonin Calculator (www.pzxemi-aiu-wtaqpgtbht.Medic Trace) to determine the patient's Mortality Risk Prognosis Performed By: #### S PAG #### [facility] [address] [place] [address] Basic Metab w/rfx MGon 08-23 (cont.) Normal [facility] Comment on above: Result Comment: Aver age GFR for 30-39 years old: 107 mL/min/1.73sq m Chronic Kidney Disease: <60 mL/min/1.73sq m Kidney failure: <15 mL/min/1.73sq m eGFR calculated using average adult body mass. Additional eGFR calculator available at: http://www.Apieron.Medic Trace/multiple_crcl_2012.htm Performed By: #### S PAG #### [employer] [address] [place] [address] Anion gap molar conc 14 mmol/L Normal 9-17 [facility] Comment on above: Performed By: #### S PAG #### [employer] [facility] [place], [place] [id number] Calcium mass conc 9.9 mg/dL Normal 8.6-10.4 [facility] Comment on above: Performed By: #### S PAG #### [employer] [address] [place] [address] Chloride molar conc 99 mmol/L Normal 98-107 [facility] Comment on above: Performed By: #### S PAG #### [address] [address] CO2 molar conc 26 mmol/L Normal 20-31 [facility] Comment on above: Performed By: #### S PAG #### [facility] [address] [place] [address] Creatinine mass conc 1.42 mg/dL High 0.50-0.90 [facility] Comment on above: Performed By: #### S PAG #### [address] [address] GFR, Amer 50 mL/min Low >60 [facility] Comment on above: Performed By: #### S PAG #### [facility] [address] [place] [address] GFR,non Amer 41 mL/min Low >60 [facility] Comment on above: Performed By: #### S PAG #### [address] [address] Glucose mass conc 95 mg/dL Normal 70-99 [facility] Comment on above: Performed By: #### S PAG #### [facility] [address] [place] [address] Potassium molar conc 4.9 mmol/L Normal 3.7-5.3 [facility] Comment on above: Result Comment: SPEC IMEN SLIGHTLY HEMOLYZED, RESULTS MAY BE ADVERSELY AFFECTED. Performed By: #### S PAG #### [address] [address] Sodium molar conc 139 mmol/L Normal 135-144 [facility] Comment on above: Performed By: #### S PAG #### [address] [address] Urea nitrogen mass conc 31 mg/dL High 6-20 [facility] Comment on above: Performed By: #### S PAG #### [address] [address] BUN/CRE Ratio NOT REPORTED Normal 9-20 [facility] Comment on above: Performed By: #### S PAG #### [address] [address] Staging: NOT REPORTED Normal [facility] Comment on above: Performed By: #### S PAG #### [address] [address] CBC with Diffon 08-23-2018 Abs. Basophil 0.06 k/uL Normal 0.00-0.20 [facility] Comment on above: Performed By: #### S PAG #### [address] [address] Abs.Imm.Granulocyte 0.22 k/uL Normal 0.00-0.30 [facility] Comment on above: Performed By: #### S PAG #### [address] [address] Abs.Neutrophil (Seg) 4.43 k/uL Normal 1.50-8.10 [facility] Comment on above: Performed By: #### S PAG #### [address] [address] Basophils/100 WBC (Bld) 1 % Normal 0-2 [facility] Comment on above: Performed By: #### S PAG #### [address] [address] Eosinophils #/vol (Bld) 0.15 10*3/uL Normal 0.00-0.44 [facility] Comment on above: Performed By: #### S PAG #### [address] [address] Eosinophils/100 WBC (Bld) 2 % Normal 1-4 [facility] Comment on above: Performed By: #### S PAG #### [address] [address] Erythrocyte distribution width Ratio (RBC) 14.4 % Normal 11.8-14.4 [facility] Comment on above: Performed By: #### S PAG #### [address] [address] Hematocrit Volume Fraction (Bld) 33.2 % Low 36.3-47.1 [facility] Comment on above: Performed By: #### S PAG #### [address] [address] Hemoglobin mass conc (Bld) 10.4 g/dL Low 11.9-15.1 [facility] Comment on above: Performed By: #### S PAG #### [address] [address] Immature granulocytes #/vol (Bld) 3 % High 0 [facility] Comment on above: Performed By: #### S PAG #### [address] [address] Lymphocytes #/vol (Bld) 2.22 10*3/uL Normal 1.10-3.70 [facility] Comment on above: Performed By: #### S PAG #### [address] [address] Lymphocytes/100 WBC (Bld) 29 % Normal 24-43 [facility] Comment on above: Performed By: #### S PAG #### [address] [address] MCH Entitic mass (RBC) 27.7 pg Normal 25.2-33.[address] [facility] Comment on above: Performed By: #### S PAG #### [address] [address] MCHC mass conc (RBC) 31.3 g/dL Normal 28.4-34.8 [facility] Comment on above: Performed By: #### S PAG #### [address] [address] MCV Entitic volume (RBC) 88.3 fL Normal 82.6-102.9 [facility] Comment on above: Performed By: #### S PAG #### [address] [address] Monocytes #/vol (Bld) 0.63 10*3/uL Normal 0.10-1.20 [facility] Comment on above: Performed By: #### S PAG #### [address] [address] Monocytes/100 WBC (Bld) 8 % Normal 3-12 [facility] Comment on above: Performed By: #### S PAG #### [address] [address] Neutrophil (Seg) 57 % Normal 36-65 [facility] Comment on above: Performed By: #### S PAG #### [address] [address] NRBC Automated 0.0 per 100 WBC Normal 0.0 [facility] Comment on above: Performed By: #### S PAG #### [address] [address] Platelets #/vol (Bld) See Reflexed IPF Result Normal 138-453 [facility] Comment on above: Performed By: #### S PAG #### [address] [address] RBC #/vol (Bld) 3.76 10*6/uL Low 3.95-5.11 [facility] Comment on above: Performed By: #### S PAG #### [address] [address] WBC #/vol (Bld) 7.7 10*3/uL Normal 3.5-11.3 [facility] Comment on above: Performed By: #### S PAG #### [address] [address] Auto Diff Performed NOT REPORTED Normal [facility] Comment on above: Performed By: #### S PAG #### [address] [address] Platelet mean volume Entitic volume (Bld) NOT REPORTED Normal 8.1-13.5 [facility] Comment on above: Performed By: #### S PAG #### [address] [address] Platelets #/vol (Bld) NOT REPORTED Normal [facility] Comment on above: Performed By: #### S PAG #### [address] [address] RBC morphology finding Nom (Bld) NOT REPORTED Normal [facility] Comment on above: Performed By: #### S PAG #### [address] [address] WBC Morphology NOT REPORTED Normal [facility] Comment on above: Performed By: #### S PAG #### [address] [address] Cult,Bloodon 08-23-2018 Cult,Blood Specimen Description .BLOOD Special Requests L AC 6ML Culture NO GROWTH 6 DAYS Report Status FINAL 08/23/2018 Normal [facility] Comment on above: Performed By: #### S PAG #### [address] [address] Cult,Blood Specimen Description .BLOOD Special Requests L FOREARM 6ML Culture NO GROWTH 6 DAYS Report Status FINAL 08/23/2018 Normal [facility] Comment on above: Performed By: #### S PAG #### [address] [address] PLT, Immature Fract.on 08-23 Platelet, Fluoresc. 113 k/uL Low 138-453 [facility] Comment on above: Performed By: #### S PAG #### [address] [address] PLT, Immature Fract. 3.7 % Normal 1.1-10.3 [facility] Comment on above: Performed By: #### S PAG #### [address] [address] CBC with Diffon 08-22-2018 Abs. Basophil 0.00 k/uL Normal 0.0-0.2 [facility] Comment on above: Performed By: #### U LAG #### [address] [address] Abs.Imm.Granulocyte 0.30 k/uL Normal 0.00-0.30 [facility] Comment on above: Performed By: #### U LAG #### [address] [address] Abs.Neutrophil (Seg) 4.87 k/uL Normal 1.8-7.7 [facility] Comment on above: Performed By: #### U LAG #### [address] [address] Basophils/100 WBC (Bld) 0 % Normal 0-2 [facility] Comment on above: Performed By: #### U LAG #### [address] [address] Eosinophils #/vol (Bld) 0.00 10*3/uL Normal 0.0-0.4 [facility] Comment on above: Performed By: #### U LAG #### [address] [address] Eosinophils/100 WBC (Bld) 0 % Low 1-4 [facility] Comment on above: Performed By: #### U LAG #### [address] [address] Immature granulocytes #/vol (Bld) 4 % High 0 [facility] Comment on above: Performed By: #### U LAG #### [address] [address] Lymphocytes #/vol (Bld) 1.88 10*3/uL Normal 1.0-4.8 [facility] Comment on above: Performed By: #### U LAG #### [address] [address] Lymphocytes/100 WBC (Bld) 25 % Normal 24-44 [facility] Comment on above: Performed By: #### U LAG #### [address] [address] Monocytes #/vol (Bld) 0.45 10*3/uL Normal 0.1-0.8 [facility] Comment on above: Performed By: #### U LAG #### [address] [address] Monocytes/100 WBC (Bld) 6 % Normal 1-7 [facility] Comment on above: Performed By: #### U LAG #### [address] [address] Morphology Interp Rehan (Bld) ANISOCYTOSIS PRESENT Normal [facility] Comment on above: Performed By: #### U LAG #### [address] [address] Neutrophil (Seg) 65 % Normal 36-66 [facility] Comment on above: Performed By: #### U LAG #### [address] [address] Erythrocyte distribution width Ratio (RBC) 14.5 % High 11.8-14.4 [facility] Comment on above: Performed By: #### U LAG #### [address] [address] Hematocrit Volume Fraction (Bld) 38.1 % Normal 36.3-47.1 [facility] Comment on above: Performed By: #### U LAG #### [address] [address] Hemoglobin mass conc (Bld) 11.5 g/dL Low 11.9-15.1 [facility] Comment on above: Performed By: #### U LAG #### [address] [address] MCH Entitic mass (RBC) 28.3 pg Normal 25.2-33.[address] [facility] Comment on above: Performed By: #### U LAG #### [address] [address] MCHC mass conc (RBC) 30.2 g/dL Normal 28.4-34.8 [facility] Comment on above: Performed By: #### U LAG #### [address] [address] MCV Entitic volume (RBC) 93.6 fL Normal 82.6-102.9 [facility] Comment on above: Performed By: #### U LAG #### [address] [address] NRBC Automated 0.0 per 100 WBC Normal 0.0 [facility] Comment on above: Performed By: #### U LAG #### [address] [address] Platelet mean volume Entitic volume (Bld) 10.7 fL Normal 8.1-13.5 [facility] Comment on above: Performed By: #### U LAG #### [address] [address] Platelets #/vol (Bld) 265 10*3/uL Normal 138-453 [facility] Comment on above: Performed By: #### U LAG #### [address] [address] RBC #/vol (Bld) 4.07 10*6/uL Normal 3.95-5.11 [facility] Comment on above: Performed By: #### U LAG #### [facility] [address] [place] [address] WBC #/vol (Bld) 7.5 10*3/uL Normal 3.5-11.3 [facility] Comment on above: Performed By: #### U LAG #### [address] [address] Auto Diff Performed NOT REPORTED Normal [facility] Comment on above: Performed By: #### U LAG #### [facility] [address] [place] [address] Platelets #/vol (Bld) NOT REPORTED Normal [facility] Comment on above: Performed By: #### U LAG #### [facility] [address] [place] [address] RBC morphology finding Nom (Bld) NOT REPORTED Normal [facility] Comment on above: Performed By: #### U LAG #### [employer] [address] [place] [address] WBC Morphology NOT REPORTED Normal [facility] Comment on above: Performed By: #### U LAG #### [facility] [address] [place] [address] Comp Metabolic Pr/rfx MGon 1 10-22-2017 Albumin mass conc 3.2 g/dL Low 3.5-5.2 [facility] Comment on above: Performed By: #### U LAG #### [facility] [address] [place] [address] Albumin/Globulin mass ratio 0.8 {ratio} Low 1.0-2.5 [facility] Comment on above: Performed By: #### U LAG #### [facility] [address] [place] [address] Alkaline Phos 90 U/L Normal 35-104 [facility] Comment on above: Performed By: #### U LAG #### [facility] [address] [place] [address] ALT enzyme act/vol 18 U/L Normal 5-33 [facility] Comment on above: Performed By: #### U LAG #### [facility] [address] [place] [address] AST enzyme act/vol 16 U/L Normal <32 [facility] Comment on above: Performed By: #### U LAG #### [facility] [address] [place] [address] Protein mass conc 7.0 g/dL Normal 6.4-8.3 [facility] Comment on above: Performed By: #### U LAG #### [facility] [address] [place] [address] (cont.) Normal [facility] Comment on above: Result Comment: Aver age GFR for 30-39 years old: 107 mL/min/1.73sq m Chronic Kidney Disease: <60 mL/min/1.73sq m Kidney failure: <15 mL/min/1.73sq m eGFR calculated using average adult body mass. Additional eGFR calculator available at: http://www.Priccut/multiple_crcl_2012.htm Performed By: #### U LAG #### [facility] [address] [place] [address] Anion gap molar conc 15 mmol/L Normal 9-17 [facility] Comment on above: Performed By: #### U LAG #### [facility] [address] [place] [address] Bilirubin Ql (U) 0.34 mg/dL Normal 0.3-1.2 [facility] Comment on above: Performed By: #### U LAG #### [facility] [address] [place] [address] Calcium mass conc 9.7 mg/dL Normal 8.6-10.4 [facility] Comment on above: Performed By: #### U LAG #### [facility] [address] [place] [address] Chloride molar conc 100 mmol/L Normal 98-107 [facility] Comment on above: Performed By: #### U LAG #### [facility] [address] [place] [address] CO2 molar conc 24 mmol/L Normal 20-31 [facility] Comment on above: Performed By: #### U LAG #### [employer] [address] [place] [address] Creatinine mass conc 1.02 mg/dL High 0.50-0.90 [facility] Comment on above: Performed By: #### U LAG #### [facility] [address] [place] [address] GFR, Amer >60 Normal >60 [facility] Comment on above: Performed By: #### U LAG #### [facility] [place] [address] GFR,non Amer >60 Normal >60 [facility] Comment on above: Performed By: #### U LAG #### [facility] [address] [place] [address] Glucose mass conc 101 mg/dL High 70-99 [facility] Comment on above: Performed By: #### U LAG #### [facility] [address] [place] [address] Potassium molar conc 4.5 mmol/L Normal 3.7-5.3 [facility] Comment on above: Performed By: #### U LAG #### [facility] [address] [place] [address] Sodium molar conc 139 mmol/L Normal 135-144 [facility] Comment on above: Performed By: #### U LAG #### [facility] [address] [place] [address] Urea nitrogen mass conc 19 mg/dL Normal 6-20 [facility] Comment on above: Performed By: #### U LAG #### [facility] [address] [place] [address] BUN/CRE Ratio NOT REPORTED Normal -20 [facility] Comment on above: Performed By: #### U LAG #### [employer] [address] [place] [address] Staging: NOT REPORTED Normal [facility] Comment on above: Performed By: #### U LAG #### [facility] [address] [place] [address] Magnesiumon 08-22-2018 Magnesium mass conc 2.4 mg/dL Normal 1.6-2.6 [facility] Comment on above: Performed By: #### U LAG #### [facility] [address] [place] [address] Vancomycin Troughon 08-22-20 18 Vancomycin Trough 20.2 ug/mL Critically high 10.0-20.[address] [facility] Comment on above: Result Comment: High er trough serum vancomycin concentrations of 15-20 ug/mL are recommended for complicated infections such as bacteremia, endocarditis, osteomyelitis, meningitis, and hospital acquired pneumonia. ADDED ON Performed By: #### U LAG #### [facility] [address] [place] [address] Date last dose, NOT REPORTED Normal [facility] Comment on above: Performed By: #### U LAG #### [facility] [address] [place] [address] Dose amount, NOT REPORTED Normal [facility] Comment on above: Performed By: #### U LAG #### [facility] [address] [place] [address] Time last dose, NOT REPORTED Normal [facility] Comment on above: Performed By: #### U LAG #### [facility] [address] [place] [address] CBC with Diffon 08-21-2018 Abs. Basophil 0.08 k/uL Normal 0.00-0.20 [facility] Comment on above: Performed By: #### U LAG #### [facility] [address] [place] [address] Abs.Imm.Granulocyte 0.50 k/uL High 0.00-0.30 [facility] Comment on above: Performed By: #### U LAG #### [facility] [address] [place] [address] Abs.Neutrophil (Seg) 4.73 k/uL Normal 1.50-8.10 [facility] Comment on above: Performed By: #### U LAG #### [address] [address] Basophils/100 WBC (Bld) 1 % Normal 0-2 [facility] Comment on above: Performed By: #### U LAG #### [address] [address] Eosinophils #/vol (Bld) 0.17 10*3/uL Normal 0.00-0.44 [facility] Comment on above: Performed By: #### U LAG #### [address] [address] Eosinophils/100 WBC (Bld) 2 % Normal 1-4 [facility] Comment on above: Performed By: #### U LAG #### [address] [address] Immature granulocytes #/vol (Bld) 6 % High 0 [facility] Comment on above: Performed By: #### U LAG #### [address] [address] Lymphocytes #/vol (Bld) 2.24 10*3/uL Normal 1.10-3.70 [facility] Comment on above: Performed By: #### U LAG #### [address] [address] Lymphocytes/100 WBC (Bld) 27 % Normal 24-43 [facility] Comment on above: Performed By: #### U LAG #### [address] [address] Monocytes #/vol (Bld) 0.58 10*3/uL Normal 0.10-1.20 [facility] Comment on above: Performed By: #### U LAG #### [address] [address] Monocytes/100 WBC (Bld) 7 % Normal 3-12 [facility] Comment on above: Performed By: #### U LAG #### [address] [address] Morphology Interp Rehan (Bld) ANISOCYTOSIS PRESENT Normal [facility] Comment on above: Performed By: #### U LAG #### [facility] [address] [place] [address] Neutrophil (Seg) 57 % Normal 36-65 [facility] Comment on above: Performed By: #### U LAG #### [address] [address] Erythrocyte distribution width Ratio (RBC) 14.6 % High 11.8-14.4 [facility] Comment on above: Performed By: #### U LAG #### [address] [address] Hematocrit Volume Fraction (Bld) 38.5 % Normal 36.3-47.1 [facility] Comment on above: Performed By: #### U LAG #### [address] [address] Hemoglobin mass conc (Bld) 11.5 g/dL Low 11.9-15.1 [facility] Comment on above: Performed By: #### U LAG #### [address] [address] MCH Entitic mass (RBC) 28.2 pg Normal 25.2-33.[address] [facility] Comment on above: Performed By: #### U LAG #### [address] [address] MCHC mass conc (RBC) 29.9 g/dL Normal 28.4-34.8 [facility] Comment on above: Performed By: #### U LAG #### [facility] [address] [place] [address] MCV Entitic volume (RBC) 94.4 fL Normal 82.6-102.9 [facility] Comment on above: Performed By: #### U LAG #### [address] [address] NRBC Automated 0.0 per 100 WBC Normal 0.0 [facility] Comment on above: Performed By: #### U LAG #### [address] [address] Platelet mean volume Entitic volume (Bld) 10.5 fL Normal 8.1-13.5 [facility] Comment on above: Performed By: #### U LAG #### [address] [address] Platelets #/vol (Bld) 264 10*3/uL Normal 138-[address] [facility] Comment on above: Performed By: #### U LAG #### [address] [address] RBC #/vol (Bld) 4.08 10*6/uL Normal 3.95-5.11 [facility] Comment on above: Performed By: #### U LAG #### [facility] [address] [place] [address] WBC #/vol (Bld) 8.3 10*3/uL Normal 3.5-11.3 [facility] Comment on above: Performed By: #### U LAG #### [facility] [address] [place] [address]68 Auto Diff Performed NOT REPORTED Normal [facility] Comment on above: Performed By: #### U LAG #### [facility] [address] [place] [address] Platelets #/vol (Bld) NOT REPORTED Normal [facility] Comment on above: Performed By: #### U LAG #### [facility] [place] [address] RBC morphology finding Nom (Bld) NOT REPORTED Normal [facility] Comment on above: Performed By: #### U LAG #### [facility] [place] [address] WBC Morphology NOT REPORTED Normal [facility] Comment on above: Performed By: #### U LAG #### [facility] [address] [place] [address] Comp Metabolic Pr/rfx MGon 1 10-21-2017 (cont.) Normal [facility] Comment on above: Result Comment: Aver age GFR for 30-39 years old: 107 mL/min/1.73sq m Chronic Kidney Disease: <60 mL/min/1.73sq m Kidney failure: <15 mL/min/1.73sq m eGFR calculated using average adult body mass. Additional eGFR calculator available at: http://www.Apieron.Medic Trace/multiple_crcl_2012.htm Performed By: #### U LAG #### [facility] [address] [place] [address] Albumin mass conc 2.9 g/dL Low 3.5-5.2 [facility] Comment on above: Performed By: #### U LAG #### [facility] [address] [place] [address] Albumin/Globulin mass ratio 0.7 {ratio} Low 1.0-2.5 [facility] Comment on above: Performed By: #### U LAG #### [facility] [address] [place] [address] Alkaline Phos 98 U/L Normal 35-104 [facility] Comment on above: Performed By: #### U LAG #### [facility] [address] [place] [address] 49162 ALT enzyme act/vol 19 U/L Normal 5-33 [facility] Comment on above: Performed By: #### U LAG #### [facility] [address] [place] [address] 579[address] Anion gap molar conc 14 mmol/L Normal 9-17 [facility] Comment on above: Performed By: #### U LAG #### [facility] [address] [place] [address] 32704 AST enzyme act/vol 21 U/L Normal <32 [facility] Comment on above: Performed By: #### U LAG #### [facility] [address] [place] [address] 12963 Bilirubin Ql (U) 0.32 mg/dL Normal 0.3-1.2 [facility] Comment on above: Performed By: #### U LAG #### [facility] [address] [place] [address]17 Calcium mass conc 9.1 mg/dL Normal 8.6-10.4 [facility] Comment on above: Performed By: #### U LAG #### [facility] [address] [place] [address] Chloride molar conc 102 mmol/L Normal 98-107 [facility] Comment on above: Performed By: #### U LAG #### [facility] [address] [place] [address] 6[address]86 CO2 molar conc 23 mmol/L Normal 20-31 [facility] Comment on above: Performed By: #### U LAG #### [facility] [address] [place] [address] 80714 Creatinine mass conc 0.90 mg/dL Normal 0.50-0.90 [facility] Comment on above: Performed By: #### U LAG #### [facility] [address] [place] [address] 56583 GFR, Amer >60 Normal >60 [facility] Comment on above: Performed By: #### U LAG #### [facility] [address] [place] [address] GFR,non Amer >60 Normal >60 [facility] Comment on above: Performed By: #### U LAG #### [facility] [address] [place] [address] 10524 Glucose mass conc 108 mg/dL High 70-99 [facility] Comment on above: Performed By: #### U LAG #### [facility] [address] [place] [address] 16106 Potassium molar conc 4.6 mmol/L Normal 3.7-5.3 [facility] Comment on above: Performed By: #### U LAG #### [facility] [address] [place] [address] 52237 Protein mass conc 6.9 g/dL Normal 6.4-8.3 [facility] Comment on above: Performed By: #### U LAG #### [facility] [address] [place] [address] 88964 Sodium molar conc 139 mmol/L Normal 135-144 [facility] Comment on above: Performed By: #### U LAG #### [employer] [address] [place] [address] 58378 Urea nitrogen mass conc 17 mg/dL Normal 6-20 [facility] Comment on above: Performed By: #### U LAG #### [employer] [address] [place] [address]1997 BUN/CRE Ratio NOT REPORTED Normal 9-20 [facility] Comment on above: Performed By: #### U LAG #### [employer] [address] [place] [address] 08667 Staging: NOT REPORTED Normal [facility] Comment on above: Performed By: #### U LAG #### [employer] [address] [place] [address] Cult,Bloodon 08-21-2018 Cult,Blood Specimen Description .BLOOD Special Requests L AC 20ML Culture POSITIVE Blood Culture CALLED TO MIS Medina [phone] [id number] DIRECT GRAM STAIN FROM BOTTLE: GRAM POSITIVE COCCI IN CLUSTERS METHICILLIN RESISTANT STAPHYLOCOCCUS AUREUS For susceptibility, refer to previous culture. Report Status FINAL 08/21/2018 Normal [facility] Comment on above: Performed By: #### U LAG #### [employer] [address] [place] [address] MRI FOOT LEFT W WO CONTRASTo n [...] tarsal metatarsal joints can be seen with infection/osteomyel itis from a hematogenous source in the appropriate [...] Murali Goff MD 08/21/18 Final result Normal [facility] Magnesiumon 08-21-2018 Magnesium mass conc 2.4 mg/dL Normal 1.6-2.6 [facility] Comment on above: Performed By: #### U LAG #### [employer] [address] [place] [address] Procalcitoninon 08-21-2018 Protein mass conc 0.27 ng/mL High <0.09 [facility] Comment on above: Result Comment: Suspected [...] entered into the Change in Procalcitonin Calculator (www.knlcpi-itz-vzkerjmokh.com) to determine the patient's Mortality Risk Prognosis Performed By: #### U LAG #### [employer] [address] [place] [address] C-Reactive Proteinon 018 CRP mass conc 50.4 mg/L High 0.0-5.0 [facility] Comment on above: Performed By: #### L ACDS, TROPI, PRCAL, MYCM #### [facility] [address] [place] [address]174 CBC with Diffon 08-20-2018 Abs. Basophil 0.08 k/uL Normal 0.0-0.2 [facility] Comment on above: Performed By: #### L ACDS, TROPI, PRCAL, MYCM #### [facility] [address] [place] [address] 11556 Abs.Imm.Granulocyte 0.42 k/uL High 0.00-0.30 [facility] Comment on above: Performed By: #### L ACDS, TROPI, PRCAL, MYCM #### [facility] [address] [place] [address] 85367 Abs.Neutrophil (Seg) 4.57 k/uL Normal 1.8-7.7 [facility] Comment on above: Performed By: #### L ACDS, TROPI, PRCAL, MYCM #### [facility] [address] [place] [address] 36740 Basophils/100 WBC (Bld) 1 % Normal 0-2 [facility] Comment on above: Performed By: #### L ACDS, TROPI, PRCAL, MYCM #### [facility] [address] [place] [address] 27182 Eosinophils #/vol (Bld) 0.25 10*3/uL Normal 0.0-0.4 [facility] Comment on above: Performed By: #### L ACDS, TROPI, PRCAL, MYCM #### [facility] [address] [place] [address]291 Eosinophils/100 WBC (Bld) 3 % Normal 1-4 [facility] Comment on above: Performed By: #### L ACDS, TROPI, PRCAL, MYCM #### [address] [address] Immature granulocytes #/vol (Bld) 5 % High 0 [facility] Comment on above: Performed By: #### L ACDS, TROPI, PRCAL, MYCM #### [address] [address] Lymphocytes #/vol (Bld) 2.32 10*3/uL Normal 1.0-4.8 [facility] Comment on above: Performed By: #### L ACDS, TROPI, PRCAL, MYCM #### [address] [address] Lymphocytes/100 WBC (Bld) 28 % Normal 24-44 [facility] Comment on above: Performed By: #### L ACDS, TROPI, PRCAL, MYCM #### [address] [address] Monocytes #/vol (Bld) 0.66 10*3/uL Normal 0.1-0.8 [facility] Comment on above: Performed By: #### L ACDS, TROPI, PRCAL, MYCM #### [address] [address] Monocytes/100 WBC (Bld) 8 % High 1-7 [facility] Comment on above: Performed By: #### L ACDS, TROPI, PRCAL, MYCM #### [address] [address] Morphology Interp Rehan (Bld) ANISOCYTOSIS PRESENT Normal [facility] Comment on above: Performed By: #### L ACDS, TROPI, PRCAL, MYCM #### [facility] [address] [place] [address] 73281 Neutrophil (Seg) 55 % Normal 36-66 [facility] Comment on above: Performed By: #### L ACDS, TROPI, PRCAL, MYCM #### [facility] [address] [place] [address] 74097 Erythrocyte distribution width Ratio (RBC) 14.6 % High 11.8-14.4 [facility] Comment on above: Performed By: #### L ACDS, TROPI, PRCAL, MYCM #### [facility] [address] [place] [address] 15138 Hematocrit Volume Fraction (Bld) 33.5 % Low 36.3-47.1 [facility] Comment on above: Performed By: #### L ACDS, TROPI, PRCAL, MYCM #### [facility] [address] [place] [address] 93460 Hemoglobin mass conc (Bld) 10.2 g/dL Low 11.9-15.1 [facility] Comment on above: Performed By: #### L ACDS, TROPI, PRCAL, MYCM #### [address] [address] MCH Entitic mass (RBC) 27.9 pg Normal 25.2-33.[address] [facility] Comment on above: Performed By: #### L ACDS, TROPI, PRCAL, MYCM #### [facility] [address] [place] [address] 16328 MCHC mass conc (RBC) 30.4 g/dL Normal 28.4-34.8 [facility] Comment on above: Performed By: #### L ACDS, TROPI, PRCAL, MYCM #### [facility] [address] [place] [address] 47484 MCV Entitic volume (RBC) 91.5 fL Normal 82.6-102.9 [facility] Comment on above: Performed By: #### L ACDS, TROPI, PRCAL, MYCM #### [address] [address] NRBC Automated 0.0 per 100 WBC Normal 0.0 [facility] Comment on above: Performed By: #### L ACDS, TROPI, PRCAL, MYCM #### [address] [address] Platelet mean volume Entitic volume (Bld) 11.0 fL Normal 8.1-13.5 [facility] Comment on above: Performed By: #### L ACDS, TROPI, PRCAL, MYCM #### [address] [address] Platelets #/vol (Bld) 211 10*3/uL Normal 138-453 [facility] Comment on above: Performed By: #### L ACDS, TROPI, PRCAL, MYCM #### [address] [address] RBC #/vol (Bld) 3.66 10*6/uL Low 3.95-5.11 [facility] Comment on above: Performed By: #### L ACDS, TROPI, PRCAL, MYCM #### [address] [address] WBC #/vol (Bld) 8.3 10*3/uL Normal 3.5-11.3 [facility] Comment on above: Performed By: #### L ACDS, TROPI, PRCAL, MYCM #### [address] [address] Auto Diff Performed NOT REPORTED Normal [facility] Comment on above: Performed By: #### L ACDS, TROPI, PRCAL, MYCM #### [address] [address] Platelets #/vol (Bld) NOT REPORTED Normal [facility] Comment on above: Performed By: #### L ACDS, TROPI, PRCAL, MYCM #### [facility] [address] [place] [address] 15717 RBC morphology finding Nom (Bld) NOT REPORTED Normal [facility] Comment on above: Performed By: #### L ACDS, TROPI, PRCAL, MYCM #### [facility] [address] [place] [address] WBC Morphology NOT REPORTED Normal [facility] Comment on above: Performed By: #### L ACDS, TROPI, PRCAL, MYCM #### [address] [address] Comp Metabolic Pr/rfx MGon 1 10-20-2017 (cont.) Normal [facility] Comment on above: Result Comment: Aver age GFR for 30-39 years old: 107 mL/min/1.73sq m Chronic Kidney Disease: <60 mL/min/1.73sq m Kidney failure: <15 mL/min/1.73sq m eGFR calculated using average adult body mass. Additional eGFR calculator available at: http://www.Apieron.Medic Trace/multiple_crcl_2012.htm Performed By: #### L ACDS, TROPI, PRCAL, MYCM #### [facility] [address] [place] [address] 02532 Albumin mass conc 3.1 g/dL Low 3.5-5.2 [facility] Comment on above: Performed By: #### L ACDS, TROPI, PRCAL, MYCM #### [facility] [address] [place] [address] 10087 Albumin/Globulin mass ratio 0.9 {ratio} Low 1.0-2.5 [facility] Comment on above: Performed By: #### L ACDS, TROPI, PRCAL, MYCM #### [facility] [address] [place] [address] 93035 Alkaline Phos 83 U/L Normal 35-104 [facility] Comment on above: Performed By: #### L ACDS, TROPI, PRCAL, MYCM #### [facility] [address] [place] [address] 78288 ALT enzyme act/vol 17 U/L Normal 5-33 [facility] Comment on above: Performed By: #### L ACDS, TROPI, PRCAL, MYCM #### [facility] [address] [place] [address] 40542 Anion gap molar conc 11 mmol/L Normal 9-17 [facility] Comment on above: Performed By: #### L ACDS, TROPI, PRCAL, MYCM #### [address] [address] AST enzyme act/vol 18 U/L Normal <32 [facility] Comment on above: Performed By: #### L ACDS, TROPI, PRCAL, MYCM #### [facility] [address] [place] [address] 83048 Bilirubin Ql (U) 0.29 mg/dL Low 0.3-1.2 [facility] Comment on above: Performed By: #### L ACDS, TROPI, PRCAL, MYCM #### [facility] [address] [place] [address] 44520 Calcium mass conc 9.0 mg/dL Normal 8.6-10.4 [facility] Comment on above: Performed By: #### L ACDS, TROPI, PRCAL, MYCM #### [facility] [address] [place] [address] 16157 Chloride molar conc 101 mmol/L Normal 98-107 [facility] Comment on above: Performed By: #### L ACDS, TROPI, PRCAL, MYCM #### [address] [address] CO2 molar conc 27 mmol/L Normal 20-31 [facility] Comment on above: Performed By: #### L ACDS, TROPI, PRCAL, MYCM #### [address] [address] Creatinine mass conc 0.97 mg/dL High 0.50-0.90 [facility] Comment on above: Performed By: #### L ACDS, TROPI, PRCAL, MYCM #### [facility] [address] [place] [address] 27812 GFR, Amer >60 Normal >60 [facility] Comment on above: Performed By: #### L ACDS, TROPI, PRCAL, MYCM #### [facility] [address] [place] [address] 88068 GFR,non Amer >60 Normal >60 [facility] Comment on above: Performed By: #### L ACDS, TROPI, PRCAL, MYCM #### [address] [address] Glucose mass conc 105 mg/dL High 70-99 [facility] Comment on above: Performed By: #### L ACDS, TROPI, PRCAL, MYCM #### [facility] [address] [place] [address] 33526 Potassium molar conc 4.4 mmol/L Normal 3.7-5.3 [facility] Comment on above: Performed By: #### L ACDS, TROPI, PRCAL, MYCM #### [facility] [address] [place] [address] 09928 Protein mass conc 6.6 g/dL Normal 6.4-8.3 [facility] Comment on above: Performed By: #### L ACDS, TROPI, PRCAL, MYCM #### [facility] [address] [place] [address] 99911 Sodium molar conc 139 mmol/L Normal 135-144 [facility] Comment on above: Performed By: #### L ACDS, TROPI, PRCAL, MYCM #### [facility] [address] [place] [address] 24072 Urea nitrogen mass conc 15 mg/dL Normal - [facility] Comment on above: Performed By: #### L ACDS, TROPI, PRCAL, MYCM #### [facility] [address] [place] [address] 89931 BUN/CRE Ratio NOT REPORTED Normal 06-24 [facility] Comment on above: Performed By: #### L ACDS, TROPI, PRCAL, MYCM #### [facility] [address] [place] [address] 32976 Staging: NOT REPORTED Normal [facility] Comment on above: Performed By: #### L ACDS, TROPI, PRCAL, MYCM #### [facility] [address] [place] [address] 84899 Magnesiumon 08-20-2018 Magnesium mass conc 2.2 mg/dL Normal 1.6-2.6 [facility] Comment on above: Performed By: #### L ACDS, TROPI, PRCAL, MYCM #### [facility] [address] [place] [address] 25295 Sedimentation Rateon 018 Sedimentation Rate 100 mm High 0-20 [facility] Comment on above: Performed By: #### L ACDS, TROPI, PRCAL, MYCM #### [facility] [address] [place] [address] 36842 XR FOOT LEFT (MIN 3 VIEWS)on 08-20-2018 [...] Andrey Angelo MD 08/20/18 Final result Normal [facility] CBC with Diffon 08-19-2018 Abs. Basophil 0.00 k/uL Normal 0.0-0.2 [facility] Comment on above: Performed By: #### L ACDS, TROPI, PRCAL, MYCM #### [address] [address] Abs.Imm.Granulocyte 0.42 k/uL High 0.00-0.30 [facility] Comment on above: Performed By: #### L ACDS, TROPI, PRCAL, MYCM #### [address] [address] Abs.Neutrophil (Seg) 2.70 k/uL Normal 1.8-7.7 [facility] Comment on above: Performed By: #### L ACDS, TROPI, PRCAL, MYCM #### [address] [address] Basophils/100 WBC (Bld) 0 % Normal 0-2 [facility] Comment on above: Performed By: #### L ACDS, TROPI, PRCAL, MYCM #### [facility] [address] [place] [address] Eosinophils #/vol (Bld) 0.30 10*3/uL Normal 0.0-0.4 [facility] Comment on above: Performed By: #### L ACDS, TROPI, PRCAL, MYCM #### [facility] [address] [place] [address] 66[address] Eosinophils/100 WBC (Bld) 5 % High 1-4 [facility] Comment on above: Performed By: #### L ACDS, TROPI, PRCAL, MYCM #### [address] [address] Immature granulocytes #/vol (Bld) 7 % High 0 [facility] Comment on above: Performed By: #### L ACDS, TROPI, PRCAL, MYCM #### [address] [address] Lymphocytes #/vol (Bld) 2.22 10*3/uL Normal 1.0-4.8 [facility] Comment on above: Performed By: #### L ACDS, TROPI, PRCAL, MYCM #### [address] [address] Lymphocytes/100 WBC (Bld) 37 % Normal 24-44 [facility] Comment on above: Performed By: #### L ACDS, TROPI, PRCAL, MYCM #### [address] [address] Monocytes #/vol (Bld) 0.36 10*3/uL Normal 0.1-0.8 [facility] Comment on above: Performed By: #### L ACDS, TROPI, PRCAL, MYCM #### [address] [address] Monocytes/100 WBC (Bld) 6 % Normal 1-7 [facility] Comment on above: Performed By: #### L ACDS, TROPI, PRCAL, MYCM #### [facility] [address] [place] [address] 24723 Morphology Interp Rehan (Bld) ANISOCYTOSIS PRESENT Normal [facility] Comment on above: Performed By: #### L ACDS, TROPI, PRCAL, MYCM #### [address] [address] Neutrophil (Seg) 45 % Normal 36-66 [facility] Comment on above: Performed By: #### L ACDS, TROPI, PRCAL, MYCM #### [address] [address] Erythrocyte distribution width Ratio (RBC) 14.6 % High 11.8-14.4 [facility] Comment on above: Performed By: #### L ACDS, TROPI, PRCAL, MYCM #### [address] [address] Hematocrit Volume Fraction (Bld) 34.4 % Low 36.3-47.1 [facility] Comment on above: Performed By: #### L ACDS, TROPI, PRCAL, MYCM #### [address] [address] Hemoglobin mass conc (Bld) 10.4 g/dL Low 11.9-15.1 [facility] Comment on above: Performed By: #### L ACDS, TROPI, PRCAL, MYCM #### [address] [address] MCH Entitic mass (RBC) 28.0 pg Normal 25.2-33.[address] [facility] Comment on above: Performed By: #### L ACDS, TROPI, PRCAL, MYCM #### [facility] [address] [place] [address] 57716 MCHC mass conc (RBC) 30.2 g/dL Normal 28.4-34.8 [facility] Comment on above: Performed By: #### L ACDS, TROPI, PRCAL, MYCM #### [facility] [address] [place] [address]402 MCV Entitic volume (RBC) 92.7 fL Normal 82.6-102.9 [facility] Comment on above: Performed By: #### L ACDS, TROPI, PRCAL, MYCM #### [address] [address] NRBC Automated 0.3 per 100 WBC High 0.0 [facility] Comment on above: Performed By: #### L ACDS, TROPI, PRCAL, MYCM #### [address] [address] Platelet mean volume Entitic volume (Bld) 10.5 fL Normal 8.1-13.5 [facility] Comment on above: Performed By: #### L ACDS, TROPI, PRCAL, MYCM #### [address] [address] Platelets #/vol (Bld) 168 10*3/uL Normal 138-[address] [facility] Comment on above: Performed By: #### L ACDS, TROPI, PRCAL, MYCM #### [address] [address] RBC #/vol (Bld) 3.71 10*6/uL Low 3.95-5.11 [facility] Comment on above: Performed By: #### L ACDS, TROPI, PRCAL, MYCM #### [address] [address] WBC #/vol (Bld) 6.0 10*3/uL Normal 3.5-11.3 [facility] Comment on above: Performed By: #### L ACDS, TROPI, PRCAL, MYCM #### [address] [address] Auto Diff Performed NOT REPORTED Normal [facility] Comment on above: Performed By: #### L ACDS, TROPI, PRCAL, MYCM #### [address] [place] [address] Platelets #/vol (Bld) NOT REPORTED Normal [facility] Comment on above: Performed By: #### L ACDS, TROPI, PRCAL, MYCM #### [address] [address] RBC morphology finding Nom (Bld) NOT REPORTED Normal [facility] Comment on above: Performed By: #### L ACDS, TROPI, PRCAL, MYCM #### [facility] [address] [place] [address] 87449 WBC Morphology NOT REPORTED Normal [facility] Comment on above: Performed By: #### L ACDS, TROPI, PRCAL, MYCM #### [address] [address] Comp Metabolic Pr/rfx MGon 1 10-19-2017 (cont.) Normal [facility] Comment on above: Result Comment: Aver age GFR for 30-39 years old: 107 mL/min/1.73sq m Chronic Kidney Disease: <60 mL/min/1.73sq m Kidney failure: <15 mL/min/1.73sq m eGFR calculated using average adult body mass. Additional eGFR calculator available at: http://www.Apieron.Medic Trace/multiple_crcl_2012.htm Performed By: #### L ACDS, TROPI, PRCAL, MYCM #### [facility] [address] [place] [address] 82351 Albumin mass conc 2.7 g/dL Low 3.5-5.2 [facility] Comment on above: Performed By: #### L ACDS, TROPI, PRCAL, MYCM #### [facility] [address] [place] [address] 70201 Albumin/Globulin mass ratio 0.8 {ratio} Low 1.0-2.5 [facility] Comment on above: Performed By: #### L ACDS, TROPI, PRCAL, MYCM #### [address] [address] Alkaline Phos 78 U/L Normal 35-104 [facility] Comment on above: Performed By: #### L ACDS, TROPI, PRCAL, MYCM #### [facility] [address] [place] [address] 79068 ALT enzyme act/vol 16 U/L Normal 5-33 [facility] Comment on above: Performed By: #### L ACDS, TROPI, PRCAL, MYCM #### [facility] [address] [place] [address] 80431 Anion gap molar conc 10 mmol/L Normal 9-17 [facility] Comment on above: Performed By: #### L ACDS, TROPI, PRCAL, MYCM #### [facility] [address] [place] [address] 51271 AST enzyme act/vol 16 U/L Normal <32 [facility] Comment on above: Performed By: #### L ACDS, TROPI, PRCAL, MYCM #### [facility] [address] [place] [address] 40112 Bilirubin Ql (U) 0.21 mg/dL Low 0.3-1.2 [facility] Comment on above: Performed By: #### L ACDS, TROPI, PRCAL, MYCM #### [facility] [address] [place] [address] 06826 Calcium mass conc 8.5 mg/dL Low 8.6-10.4 [facility] Comment on above: Performed By: #### L ACDS, TROPI, PRCAL, MYCM #### [facility] [address] [place] [address] 85856 Chloride molar conc 103 mmol/L Normal 98-107 [facility] Comment on above: Performed By: #### L ACDS, TROPI, PRCAL, MYCM #### [address] [address] CO2 molar conc 24 mmol/L Normal 20-31 [facility] Comment on above: Performed By: #### L ACDS, TROPI, PRCAL, MYCM #### [address] [address] Creatinine mass conc 0.88 mg/dL Normal 0.50-0.90 [facility] Comment on above: Performed By: #### L ACDS, TROPI, PRCAL, MYCM #### [facility] [address] [place] [address] 78827 GFR, Amer >60 Normal >60 [facility] Comment on above: Performed By: #### L ACDS, TROPI, PRCAL, MYCM #### [facility] [address] [place] [address] 41393 GFR,non Amer >60 Normal >60 [facility] Comment on above: Performed By: #### L ACDS, TROPI, PRCAL, MYCM #### [facility] [address] [place] [address] 56504 Glucose mass conc 104 mg/dL High 70-99 [facility] Comment on above: Performed By: #### L ACDS, TROPI, PRCAL, MYCM #### [facility] [address] [place] [address] 66515 Potassium molar conc 4.0 mmol/L Normal 3.7-5.3 [facility] Comment on above: Performed By: #### L ACDS, TROPI, PRCAL, MYCM #### [facility] [address] [place] [address] 80720 Protein mass conc 6.3 g/dL Low 6.4-8.3 [facility] Comment on above: Performed By: #### L ACDS, TROPI, PRCAL, MYCM #### [employer] [facility] [place] [address] Sodium molar conc 137 mmol/L Normal 135-144 [facility] Comment on above: Performed By: #### L ACDS, TROPI, PRCAL, MYCM #### [employer] [facility] [place] [address] Urea nitrogen mass conc 16 mg/dL Normal - [facility] Comment on above: Performed By: #### L ACDS, TROPI, PRCAL, MYCM #### [facility] [address] [place] [address] 67233 BUN/CRE Ratio NOT REPORTED Normal - [facility] Comment on above: Performed By: #### L ACDS, TROPI, PRCAL, MYCM #### [facility] [address] [place] [address] 43865 Staging: NOT REPORTED Normal [facility] Comment on above: Performed By: #### L ACDS, TROPI, PRCAL, MYCM #### [employer] [address] [place] [address] 96362 Cult, Bloodon 08-19-2018 Cult, Blood Specimen Description [...] Trimethoprim/Sulfa <=10 SUSCEPTIBLE Vancomycin 1 SUSCEPTIBLE Normal [facility] Comment on above: Performed By: #### L ACDS, TROPI, PRCAL, MYCM #### [id number] [place] [address] MRI CERVICAL SPINE W WO CONT Arianna 08-19-2018 MRI CERVICAL SPINE W WO CONTRAST [...] Bo Rodrigues MD 08/19/18 Final result Normal [facility] MRI LUMBAR SPINE W WO CONTRA [...] Bo Rodrigues MD 08/19/18 Final result Normal [facility] MRI THORACIC SPINE W WO CONT [facility] 08-19-2018 MRI THORACIC SPINE W WO CONTRAST [...] Bo Rodrigues MD 08/19/18 Final result Normal [facility] Magnesiumon 08-19-2018 Magnesium mass conc 2.3 mg/dL Normal 1.6-2.6 [facility] Comment on above: Performed By: #### L ACDS, TROPI, PRCAL, MYCM #### [facility] [address] [place] [address] [id number] Procalcitoninon 08-19-2018 Protein mass conc 0.57 ng/mL High <0.09 [facility] Comment on above: Result Comment: Suspected [...] entered into the Change in Procalcitonin Calculator (www.wfbqqi-yiw-zdsiydiwdr.Medic Trace) to determine the patient's Mortality Risk Prognosis Performed By: #### L ACDS, TROPI, PRCKIMBERLI, MYCM #### [facility] [address] [place] [address]13 CBC with Diffon 08-18-2018 Abs. Basophil <0.03 Normal 0.00-0.20 [facility] Comment on above: Performed By: #### L ACDS, TROPI, PRCAL, MYCM #### [facility] [address] [place] [address] 73821 Abs.Imm.Granulocyte 0.28 k/uL Normal 0.00-0.30 [facility] Comment on above: Performed By: #### L ACDS, TROPI, PRCAL, MYCM #### [facility] [address] [place] [address] 61308 Abs.Neutrophil (Seg) 3.23 k/uL Normal 1.50-8.10 [facility] Comment on above: Performed By: #### L ACDS, TROPI, PRCAL, MYCM #### [address] [address] Basophils/100 WBC (Bld) 0 % Normal 0-2 [facility] Comment on above: Performed By: #### L ACDS, TROPI, PRCAL, MYCM #### [address] [address] Eosinophils #/vol (Bld) 0.15 10*3/uL Normal 0.00-0.44 [facility] Comment on above: Performed By: #### L ACDS, TROPI, PRCAL, MYCM #### [address] [address] Eosinophils/100 WBC (Bld) 3 % Normal 1-4 [facility] Comment on above: Performed By: #### L ACDS, TROPI, PRCAL, MYCM #### [facility] [address] [place] [address] 86185 Erythrocyte distribution width Ratio (RBC) 14.7 % High 11.8-14.4 [facility] Comment on above: Performed By: #### L ACDS, TROPI, PRCAL, MYCM #### [facility] [address] [place] [address] 96792 Hematocrit Volume Fraction (Bld) 32.7 % Low 36.3-47.1 [facility] Comment on above: Performed By: #### L ACDS, TROPI, PRCAL, MYCM #### [facility] [address] [place] [address] 97558 Hemoglobin mass conc (Bld) 10.1 g/dL Low 11.9-15.1 [facility] Comment on above: Performed By: #### L ACDS, TROPI, PRCAL, MYCM #### [address] [address] Immature granulocytes #/vol (Bld) 5 % High 0 [facility] Comment on above: Performed By: #### L ACDS, TROPI, PRCAL, MYCM #### [address] [address] Lymphocytes #/vol (Bld) 1.58 10*3/uL Normal 1.10-3.70 [facility] Comment on above: Performed By: #### L ACDS, TROPI, PRCAL, MYCM #### [address] [address] Lymphocytes/100 WBC (Bld) 28 % Normal 24-43 [facility] Comment on above: Performed By: #### L ACDS, TROPI, PRCAL, MYCM #### [address] [address] MCH Entitic mass (RBC) 28.2 pg Normal 25.2-33.[address] [facility] Comment on above: Performed By: #### L ACDS, TROPI, PRCAL, MYCM #### [address] [address] MCHC mass conc (RBC) 30.9 g/dL Normal 28.4-34.8 [facility] Comment on above: Performed By: #### L ACDS, TROPI, PRCAL, MYCM #### [address] [address] MCV Entitic volume (RBC) 91.3 fL Normal 82.6-102.9 [facility] Comment on above: Performed By: #### L ACDS, TROPI, PRCAL, MYCM #### [facility] [address] [place] [address] 34925 Monocytes #/vol (Bld) 0.47 10*3/uL Normal 0.10-1.20 [facility] Comment on above: Performed By: #### L ACDS, TROPI, PRCAL, MYCM #### [address] [address] Monocytes/100 WBC (Bld) 8 % Normal 3-12 [facility] Comment on above: Performed By: #### L ACDS, TROPI, PRCAL, MYCM #### [address] [address] Neutrophil (Seg) 56 % Normal 36-65 [facility] Comment on above: Performed By: #### L ACDS, TROPI, PRCAL, MYCM #### [facility] [address] [place] [address] 58436 NRBC Automated 0.0 per 100 WBC Normal 0.0 [facility] Comment on above: Performed By: #### L ACDS, TROPI, PRCAL, MYCM #### [address] [address] Platelet mean volume Entitic volume (Bld) 11.4 fL Normal 8.1-13.5 [facility] Comment on above: Performed By: #### L ACDS, TROPI, PRCAL, MYCM #### [facility] [address] [place] [address] 69350 Platelets #/vol (Bld) 153 10*3/uL Normal 138-[address] [facility] Comment on above: Performed By: #### L ACDS, TROPI, PRCAL, MYCM #### [facility] [address] [place] [address] 63545 RBC #/vol (Bld) 3.58 10*6/uL Low 3.95-5.11 [facility] Comment on above: Performed By: #### L ACDS, TROPI, PRCAL, MYCM #### [address] [address] RBC morphology finding Nom (Bld) ANISOCYTOSIS PRESENT Normal [facility] Comment on above: Performed By: #### L ACDS, TROPI, PRCAL, MYCM #### [address] [address] WBC #/vol (Bld) 5.7 10*3/uL Normal 3.5-11.3 [facility] Comment on above: Performed By: #### L ACDS, TROPI, PRCAL, MYCM #### [facility] [address] [place] [address] 95314 Auto Diff Performed NOT REPORTED Normal [facility] Comment on above: Performed By: #### L ACDS, TROPI, PRCAL, MYCM #### [facility] [address] [place] [address] 29285 Platelets #/vol (Bld) NOT REPORTED Normal [facility] Comment on above: Performed By: #### L ACDS, TROPI, PRCAL, MYCM #### [facility] [address] [place] [address] 44836 WBC Morphology NOT REPORTED Normal [facility] Comment on above: Performed By: #### L ACDS, TROPI, PRCAL, MYCM #### [facility] [address] [place] [address] 93205 Comp Metabolic Pr/rfx MGon 1 10-18-2017 (cont.) Normal [facility] Comment on above: Result Comment: Aver age GFR for 30-39 years old: 107 mL/min/1.73sq m Chronic Kidney Disease: <60 mL/min/1.73sq m Kidney failure: <15 mL/min/1.73sq m eGFR calculated using average adult body mass. Additional eGFR calculator available at: http://www.Apieron.com/multiple_crcl_2012.htm Performed By: #### L ACDS, TROPI, PRCAL, MYCM #### [facility] [address] [place] [address] 74435 Albumin mass conc 2.7 g/dL Low 3.5-5.2 [facility] Comment on above: Performed By: #### L ACDS, TROPI, PRCAL, MYCM #### [facility] [address] [place] [address] 77688 Albumin/Globulin mass ratio 0.8 {ratio} Low 1.0-2.5 [facility] Comment on above: Performed By: #### L ACDS, TROPI, PRCAL, MYCM #### [facility] [address] [place] [address] 27610 Alkaline Phos 82 U/L Normal 35-104 [facility] Comment on above: Performed By: #### L ACDS, TROPI, PRCAL, MYCM #### [facility] [address] [place] [address] 76674 ALT enzyme act/vol 19 U/L Normal 5-33 [facility] Comment on above: Performed By: #### L ACDS, TROPI, PRCAL, MYCM #### [facility] [address] [place] [address] 50469 Anion gap molar conc 8 mmol/L Low 9-17 [facility] Comment on above: Performed By: #### L ACDS, TROPI, PRCAL, MYCM #### [facility] [address] [place] [address] 10994 AST enzyme act/vol 17 U/L Normal <32 [facility] Comment on above: Performed By: #### L ACDS, TROPI, PRCAL, MYCM #### [facility] [address] [place] [address] 65314 Bilirubin Ql (U) 0.24 mg/dL Low 0.3-1.2 [facility] Comment on above: Performed By: #### L ACDS, TROPI, PRCAL, MYCM #### [facility] [address] [place] [address] 69237 Calcium mass conc 8.2 mg/dL Low 8.6-10.4 [facility] Comment on above: Performed By: #### L ACDS, TROPI, PRCAL, MYCM #### [facility] [address] [place] [address] 76103 Chloride molar conc 103 mmol/L Normal 98-107 [facility] Comment on above: Performed By: #### L ACDS, TROPI, PRCAL, MYCM #### [facility] [address] [place] [address] 02185 CO2 molar conc 25 mmol/L Normal 20-31 [facility] Comment on above: Performed By: #### L ACDS, TROPI, PRCAL, MYCM #### [facility] [address] [place] [address] 23704 Creatinine mass conc 0.94 mg/dL High 0.50-0.90 [facility] Comment on above: Performed By: #### L ACDS, TROPI, PRCAL, MYCM #### [facility] [address] [place] [address] 46710 GFR, Amer >60 Normal >60 [facility] Comment on above: Performed By: #### L ACDS, TROPI, PRCAL, MYCM #### [facility] [address] [place] [address] 85975 GFR,non Amer >60 Normal >60 [facility] Comment on above: Performed By: #### L ACDS, TROPI, PRCAL, MYCM #### [facility] [address] [place] [address] 15136 Glucose mass conc 107 mg/dL High 70-99 [facility] Comment on above: Performed By: #### L ACDS, TROPI, PRCAL, MYCM #### [facility] [address] [place] [address] 24044 Potassium molar conc 4.1 mmol/L Normal 3.7-5.3 [facility] Comment on above: Performed By: #### L ACDS, TROPI, PRCAL, MYCM #### [facility] [address] [place] [address] 28691 Protein mass conc 6.2 g/dL Low 6.4-8.3 [facility] Comment on above: Performed By: #### L ACDS, TROPI, PRCAL, MYCM #### [facility] [address] [place] [address] 53174 Sodium molar conc 136 mmol/L Normal 135-144 [facility] Comment on above: Performed By: #### L ACDS, TROPI, PRCAL, MYCM #### [facility] [address] [place] [address] 06740 Urea nitrogen mass conc 14 mg/dL Normal 6-20 [facility] Comment on above: Performed By: #### L ACDS, TROPI, PRCAL, MYCM #### [facility] [address] [place] [address] 72398 BUN/CRE Ratio NOT REPORTED Normal 9-20 [facility] Comment on above: Performed By: #### L ACDS, TROPI, PRCAL, MYCM #### [facility] [address] [place] [address] 70937 Staging: NOT REPORTED Normal [facility] Comment on above: Performed By: #### L ACDS, TROPI, PRCAL, MYCM #### [facility] [address] [place] [address] 68328 Magnesiumon 08-18-2018 Magnesium mass conc 2.3 mg/dL Normal 1.6-2.6 [facility] Comment on above: Performed By: #### L ACDS, TROPI, PRCAL, MYCM #### [employer] [address] [place] [address] 38569 Vancomycin Troughon 08-18-20 18 Vancomycin Trough 14.7 ug/mL Normal 10.0-20.0 [facility] Comment on above: Result Comment: High er trough serum vancomycin concentrations of 15-20 ug/mL are recommended for complicated infections such as bacteremia, endocarditis, osteomyelitis, meningitis, and hospital acquired pneumonia. Performed By: #### L ACDS, TROPI, PRCAL, MYCM #### [employer] [address] [place] [address] 21276 Date last dose, NOT REPORTED Normal [facility] Comment on above: Performed By: #### L ACDS, TROPI, PRCAL, MYCM #### [employer] [address] [place] [address] 18189 Dose amount, NOT REPORTED Normal [facility] Comment on above: Performed By: #### L ACDS, TROPI, PRCAL, MYCM #### [employer] [address] [place] [address] 68112 Time last dose, NOT REPORTED Normal [facility] Comment on above: Performed By: #### L ACDS, TROPI, PRCAL, MYCM #### [employer] [address] [place] [address] 38011 C-Reactive Proteinon 018 CRP mass conc 188.1 mg/L High 0.0-5.0 [facility] Comment on above: Performed By: #### L ACDS, TROPI, PRCAL, MYCM #### [employer] [address] [place] [address] 67376 CBC with Diffon 11-13-2018 Abs. Basophil 0.00 k/uL Normal 0.0-0.2 [facility] Comment on above: Performed By: #### L ACDS, TROPI, PRCAL, MYCM #### [facility] [address] [place] [address] 85578 Abs.Imm.Granulocyte 0.13 k/uL Normal 0.00-0.30 [facility] Comment on above: Performed By: #### L ACDS, TROPI, PRCAL, MYCM #### [facility] [address] [place] [address] 74331 Abs.Neutrophil (Seg) 4.35 k/uL Normal 1.8-7.7 [facility] Comment on above: Performed By: #### L ACDS, TROPI, PRCAL, MYCM #### [facility] [address] [place] [address] 22750 Basophils/100 WBC (Bld) 0 % Normal 0-2 [facility] Comment on above: Performed By: #### L ACDS, TROPI, PRCAL, MYCM #### [facility] [address] [place] [address] 28584 Eosinophils #/vol (Bld) 0.06 10*3/uL Normal 0.0-0.4 [facility] Comment on above: Performed By: #### L ACDS, TROPI, PRCAL, MYCM #### [facility] [address] [place] [address] 32458 Eosinophils/100 WBC (Bld) 1 % Normal 1-4 [facility] Comment on above: Performed By: #### L ACDS, TROPI, PRCAL, MYCM #### [facility] [address] [place] [address] 97088 Immature granulocytes #/vol (Bld) 2 % High 0 [facility] Comment on above: Performed By: #### L ACDS, TROPI, PRCAL, MYCM #### [employer] [address] [place] [address] 30309 Lymphocytes #/vol (Bld) 1.32 10*3/uL Normal 1.0-4.8 [facility] Comment on above: Performed By: #### L ACDS, TROPI, PRCAL, MYCM #### [address] [address] Lymphocytes/100 WBC (Bld) 21 % Low 24-44 [facility] Comment on above: Performed By: #### L ACDS, TROPI, PRCAL, MYCM #### [address] 48081 Monocytes #/vol (Bld) 0.44 10*3/uL Normal 0.1-0.8 [facility] Comment on above: Performed By: #### L ACDS, TROPI, PRCAL, MYCM #### [facility] [address] [place] [address] 33570 Monocytes/100 WBC (Bld) 7 % Normal 1-7 [facility] Comment on above: Performed By: #### L ACDS, TROPI, PRCAL, MYCM #### [facility] [address] [place] [address] 53837 Morphology Interp Rehan (Bld) ANISOCYTOSIS PRESENT Normal [facility] Comment on above: Result Comment: INCR EASED BANDS PRESENT 1+ TEARDROPS Performed By: #### L ACDS, TROPI, PRCAL, MYCM #### [address] 06311 Neutrophil (Seg) 69 % High 36-66 [facility] Comment on above: Performed By: #### L ACDS, TROPI, PRCAL, MYCM #### [facility] [address] [place] [address] 30169 Erythrocyte distribution width Ratio (RBC) 14.8 % High 11.8-14.4 [facility] Comment on above: Performed By: #### L ACDS, TROPI, PRCAL, MYCM #### [address] 50981 Hematocrit Volume Fraction (Bld) 33.3 % Low 36.3-47.1 [facility] Comment on above: Performed By: #### L ACDS, TROPI, PRCAL, MYCM #### [facility] [address] [place] [address] 73609 Hemoglobin mass conc (Bld) 10.2 g/dL Low 11.9-15.1 [facility] Comment on above: Performed By: #### L ACDS, TROPI, PRCAL, MYCM #### [facility] [address] [place] [address] 86070 MCH Entitic mass (RBC) 28.3 pg Normal 25.2-33.[address] [facility] Comment on above: Performed By: #### L ACDS, TROPI, PRCAL, MYCM #### [address] 79922 MCHC mass conc (RBC) 30.6 g/dL Normal 28.4-34.8 [facility] Comment on above: Performed By: #### L ACDS, TROPI, PRCAL, MYCM #### [address] 37377 MCV Entitic volume (RBC) 92.2 fL Normal 82.6-102.9 [facility] Comment on above: Performed By: #### L ACDS, TROPI, PRCAL, MYCM #### [facility] [address] [place] [address] 42726 NRBC Automated 0.0 per 100 WBC Normal 0.0 [facility] Comment on above: Performed By: #### L ACDS, TROPI, PRCAL, MYCM #### [facility] [address] [place] [address] 96941 Platelet mean volume Entitic volume (Bld) 11.5 fL Normal 8.1-13.5 [facility] Comment on above: Performed By: #### L ACDS, TROPI, PRCAL, MYCM #### [address] 25348 Platelets #/vol (Bld) 149 10*3/uL Normal 138-[address] [facility] Comment on above: Performed By: #### L ACDS, TROPI, PRCAL, MYCM #### [address] 62172 RBC #/vol (Bld) 3.61 10*6/uL Low 3.95-5.11 [facility] Comment on above: Performed By: #### L ACDS, TROPI, PRCAL, MYCM #### [address] 67759 WBC #/vol (Bld) 6.3 10*3/uL Normal 3.5-11.3 [facility] Comment on above: Performed By: #### L ACDS, TROPI, PRCAL, MYCM #### [address] 68679 Auto Diff Performed NOT REPORTED Normal [facility] Comment on above: Performed By: #### L ACDS, TROPI, PRCAL, MYCM #### [facility] [address] [place] [address] 83855 Platelets #/vol (Bld) NOT REPORTED Normal [facility] Comment on above: Performed By: #### L ACDS, TROPI, PRCAL, MYCM #### [facility] [address] [place] [address] 30775 RBC morphology finding Nom (Bld) NOT REPORTED Normal [facility] Comment on above: Performed By: #### L ACDS, TROPI, PRCAL, MYCM #### [employer] [address] [place] [address] 87984 WBC Morphology NOT REPORTED Normal [facility] Comment on above: Performed By: #### L ACDS, TROPI, PRCAL, MYCM #### [facility] [address] [place] [address] 42161 Comp Metabolic Pr/rfx MGon 1 10-17-2017 (cont.) Normal [facility] Comment on above: Result Comment: Aver age GFR for 30-39 years old: 107 mL/min/1.73sq m Chronic Kidney Disease: <60 mL/min/1.73sq m Kidney failure: <15 mL/min/1.73sq m eGFR calculated using average adult body mass. Additional eGFR calculator available at: http://www.Priccut/multiple_crcl_2011.htm Performed By: #### L ACDS, TROPI, PRCAL, MYCM #### [employer] [address] [place] [address] 53483 Albumin mass conc 2.4 g/dL Low 3.5-5.2 [facility] Comment on above: Performed By: #### L ACDS, TROPI, PRCAL, MYCM #### [employer] [address] [place] [address] 71368 Albumin/Globulin mass ratio 0.7 {ratio} Low 1.0-2.5 [facility] Comment on above: Performed By: #### L ACDS, TROPI, PRCAL, MYCM #### [employer] [address] [place] [address] 22956 Alkaline Phos 76 U/L Normal 35-104 [facility] Comment on above: Performed By: #### L ACDS, TROPI, PRCAL, MYCM #### [employer] [address] [place] [address] 73581 ALT enzyme act/vol 25 U/L Normal 5-33 [facility] Comment on above: Performed By: #### L ACDS, TROPI, PRCAL, MYCM #### [facility] [address] [place] [address] 28710 Anion gap molar conc 8 mmol/L Low 9-17 [facility] Comment on above: Performed By: #### L ACDS, TROPI, PRCAL, MYCM #### [facility] [address] [place] [address] 73582 AST enzyme act/vol 26 U/L Normal <32 [facility] Comment on above: Performed By: #### L ACDS, TROPI, PRCAL, MYCM #### [facility] [address] [place] [address] 78462 Bilirubin Ql (U) 0.34 mg/dL Normal 0.3-1.2 [facility] Comment on above: Performed By: #### L ACDS, TROPI, PRCAL, MYCM #### [facility] [address] [place] [address] 54082 Calcium mass conc 7.8 mg/dL Low 8.6-10.4 [facility] Comment on above: Performed By: #### L ACDS, TROPI, PRCAL, MYCM #### [facility] [address] [place] [address] 72445 Chloride molar conc 99 mmol/L Normal 98-107 [facility] Comment on above: Performed By: #### L ACDS, TROPI, PRCAL, MYCM #### [facility] [address] [place] [address] 72655 CO2 molar conc 23 mmol/L Normal 20-31 [facility] Comment on above: Performed By: #### L ACDS, TROPI, PRCAL, MYCM #### [facility] [address] [place] [address] 15190 Creatinine mass conc 1.04 mg/dL High 0.50-0.90 [facility] Comment on above: Performed By: #### L ACDS, TROPI, PRCAL, MYCM #### [facility] [address] [place] [address] 66674 GFR, Amer >60 Normal >60 [facility] Comment on above: Performed By: #### L ACDS, TROPI, PRCAL, MYCM #### [facility] [address] [place] [address] 35671 GFR,non Amer 59 mL/min Low >60 [facility] Comment on above: Performed By: #### L ACDS, TROPI, PRCAL, MYCM #### [facility] [address] [place] [address] 45369 Glucose mass conc 109 mg/dL High 70-99 [facility] Comment on above: Performed By: #### L ACDS, TROPI, PRCAL, MYCM #### [facility] [address] [place] [address] 94236 Potassium molar conc 3.8 mmol/L Normal 3.7-5.3 [facility] Comment on above: Performed By: #### L ACDS, TROPI, PRCAL, MYCM #### [facility] [address] [place] [address] 49990 Protein mass conc 5.8 g/dL Low 6.4-8.3 [facility] Comment on above: Performed By: #### L ACDS, TROPI, PRCAL, MYCM #### [facility] [address] [place] [address] 33021 Sodium molar conc 130 mmol/L Low 135-144 [facility] Comment on above: Performed By: #### L ACDS, TROPI, PRCAL, MYCM #### [facility] [address] [place] [address] 50209 Urea nitrogen mass conc 15 mg/dL Normal 6-20 [facility] Comment on above: Performed By: #### L ACDS, TROPI, PRCAL, MYCM #### [employer] [address] [place] [address] BUN/CRE Ratio NOT REPORTED Normal 9-20 [facility] Comment on above: Performed By: #### L ACDS, TROPI, PRCAL, MYCM #### [employer] [address] [place] [address] Staging: NOT REPORTED Normal [facility] Comment on above: Performed By: #### L ACDS, TROPI, PRCAL, MYCM #### [employer] [address] [place] [address] Magnesiumon 08-17-2018 Magnesium mass conc 2.2 mg/dL Normal 1.6-2.6 [facility] Comment on above: Performed By: #### L ACDS, TROPI, PRCAL, MYCM #### [employer] [address] [place] [address] Procalcitoninon 08-17-2018 Protein mass conc 1.48 ng/mL High <0.09 [facility] Comment on above: Result Comment: Suspected [...] entered into the Change in Procalcitonin Calculator ([email or web address]-kuz-nvztqsvgpu.com) to determine the patient's Mortality Risk Prognosis Performed By: #### L ACDS, TROPI, PRCAL, MYCM #### [place] [address] Sedimentation Rateon 018 Sedimentation Rate 97 mm High 0-20 [facility] Comment on above: Performed By: #### L ACDS, TROPI, PRCAL, MYCM #### [place] [address] CBC with Diffon 08-16-2018 Abs. Basophil 0.00 k/uL Normal 0.00-0.20 [facility] Comment on above: Performed By: #### L ACDS, TROPI, PRCAL, MYCM #### [place] [address] Abs.Imm.Granulocyte 0.11 k/uL Normal 0.00-0.30 [facility] Comment on above: Performed By: #### L ACDS, TROPI, PRCAL, MYCM #### [address] [address] Abs.Neutrophil (Seg) 4.60 k/uL Normal 1.50-8.10 [facility] Comment on above: Performed By: #### L ACDS, TROPI, PRCAL, MYCM #### [address] 46872 Basophils/100 WBC (Bld) 0 % Normal 0-2 [facility] Comment on above: Performed By: #### L ACDS, TROPI, PRCAL, MYCM #### [address] 95188 Eosinophils #/vol (Bld) 0.00 10*3/uL Normal 0.00-0.44 [facility] Comment on above: Performed By: #### L ACDS, TROPI, PRCAL, MYCM #### [address] [address]43 Eosinophils/100 WBC (Bld) 0 % Low 1-4 [facility] Comment on above: Performed By: #### L ACDS, TROPI, PRCAL, MYCM #### [address] 05039 Immature granulocytes #/vol (Bld) 2 % High 0 [facility] Comment on above: Performed By: #### L ACDS, TROPI, PRCAL, MYCM #### [address] [address]36 Lymphocytes #/vol (Bld) 0.67 10*3/uL Low 1.10-3.70 [facility] Comment on above: Performed By: #### L ACDS, TROPI, PRCAL, MYCM #### [address] 69629 Lymphocytes/100 WBC (Bld) 12 % Low 24-43 [facility] Comment on above: Performed By: #### L ACDS, TROPI, PRCAL, MYCM #### [address] 82849 Monocytes #/vol (Bld) 0.22 10*3/uL Normal 0.10-1.20 [facility] Comment on above: Performed By: #### L ACDS, TROPI, PRCAL, MYCM #### [address] [address]91 Monocytes/100 WBC (Bld) 4 % Normal 3-12 [facility] Comment on above: Performed By: #### L ACDS, TROPI, PRCAL, MYCM #### [address] [address]991 Morphology Interp Rehan (Bld) ANISOCYTOSIS PRESENT Normal [facility] Comment on above: Result Comment: INCR EASED BANDS PRESENT 1+ TEARDROPS Performed By: #### L ACDS, TROPI, PRCAL, MYCM #### [address] 74250 Neutrophil (Seg) 82 % High 36-65 [facility] Comment on above: Performed By: #### L ACDS, TROPI, PRCAL, MYCM #### [facility] [address] [place] [address] 55617 Erythrocyte distribution width Ratio (RBC) 15.1 % High 11.8-14.4 [facility] Comment on above: Performed By: #### L ACDS, TROPI, PRCAL, MYCM #### [facility] [address] [place] [address] 39395 Hematocrit Volume Fraction (Bld) 34.1 % Low 36.3-47.1 [facility] Comment on above: Performed By: #### L ACDS, TROPI, PRCAL, MYCM #### [facility] [address] [place] [address] 48527 Hemoglobin mass conc (Bld) 10.0 g/dL Low 11.9-15.1 [facility] Comment on above: Performed By: #### L ACDS, TROPI, PRCAL, MYCM #### [facility] [address] [place] [address] 14957 MCH Entitic mass (RBC) 28.7 pg Normal 25.2-33.[address] [facility] Comment on above: Performed By: #### L ACDS, TROPI, PRCAL, MYCM #### [facility] [address] [place] [address] 06337 MCHC mass conc (RBC) 29.3 g/dL Normal 28.4-34.8 [facility] Comment on above: Performed By: #### L ACDS, TROPI, PRCAL, MYCM #### [address] [address]662 MCV Entitic volume (RBC) 98.0 fL Normal 82.6-102.9 [facility] Comment on above: Performed By: #### L ACDS, TROPI, PRCAL, MYCM #### [address] 37565 NRBC Automated 0.0 per 100 WBC Normal 0.0 [facility] Comment on above: Performed By: #### L ACDS, TROPI, PRCAL, MYCM #### [address] 99138 Platelet mean volume Entitic volume (Bld) 11.1 fL Normal 8.1-13.5 [facility] Comment on above: Performed By: #### L ACDS, TROPI, PRCAL, MYCM #### [address] [address]197 Platelets #/vol (Bld) 119 10*3/uL Low 138-453 [facility] Comment on above: Performed By: #### L ACDS, TROPI, PRCAL, MYCM #### [address] [address] RBC #/vol (Bld) 3.48 10*6/uL Low 3.95-5.11 [facility] Comment on above: Performed By: #### L ACDS, TROPI, PRCAL, MYCM #### [address] [address]25 WBC #/vol (Bld) 5.6 10*3/uL Normal 3.5-11.3 [facility] Comment on above: Performed By: #### L ACDS, TROPI, PRCAL, MYCM #### [address] 7[address]87 Auto Diff Performed NOT REPORTED Normal [facility] Comment on above: Performed By: #### L ACDS, TROPI, PRCAL, MYCM #### [facility] [address] [place] [address] 66629 Platelets #/vol (Bld) NOT REPORTED Normal [facility] Comment on above: Performed By: #### L ACDS, TROPI, PRCAL, MYCM #### [facility] [address] [place] [address] 78601 RBC morphology finding Nom (Bld) NOT REPORTED Normal [facility] Comment on above: Performed By: #### L ACDS, TROPI, PRCAL, MYCM #### [facility] [address] [place] [address] 71552 WBC Morphology NOT REPORTED Normal [facility] Comment on above: Performed By: #### L ACDS, TROPI, PRCAL, MYCM #### [facility] [address] [place] [address] HEAD WO CONTRASTon 2017 CT HEAD [...] Erica Angeles MD 08/16/18 Final result Normal [facility] Calcium, Ionicon 08-16-2018 Calcium mass conc 0.99 mmol/L Low 1.13-1.33 [facility] Comment on above: Performed By: #### L ACDS, TROPI, PRCAL, MYCM #### [address] [address] Comp Metabolic Pr/rfx MGon 1 10-16-2017 (cont.) Normal [facility] Comment on above: Result Comment: Aver age GFR for 30-39 years old: 107 mL/min/1.73sq m Chronic Kidney Disease: <60 mL/min/1.73sq m Kidney failure: <15 mL/min/1.73sq m eGFR calculated using average adult body mass. Additional eGFR calculator available at: http://www.Priccut/multiple_crcl_2012.htm Performed By: #### P T, CMPX, MG, CDP #### [facility] [address] [place] [address] 35477 Albumin mass conc 2.3 g/dL Low 3.5-5.2 [facility] Comment on above: Performed By: #### P T, CMPX, MG, CDP #### [facility] [address] [place] [address] 28870 Albumin/Globulin mass ratio 0.7 {ratio} Low 1.0-2.5 [facility] Comment on above: Performed By: #### P T, CMPX, MG, CDP #### [employer] [address] [place] [address] 77950 Alkaline Phos 67 U/L Normal 35-104 [facility] Comment on above: Performed By: #### P T, CMPX, MG, CDP #### [facility] [address] [place] [address] 57851 ALT enzyme act/vol 33 U/L Normal 5-33 [facility] Comment on above: Performed By: #### P T, CMPX, MG, CDP #### [facility] [address] [place] [address] 00191 Anion gap molar conc 11 mmol/L Normal 9-17 [facility] Comment on above: Performed By: #### P T, CMPX, MG, CDP #### [facility] [address] [place] [address] 68383 AST enzyme act/vol 41 U/L High <32 [facility] Comment on above: Performed By: #### P T, CMPX, MG, CDP #### [facility] [address] [place] [address] 42339 Bilirubin Ql (U) 0.40 mg/dL Normal 0.3-1.2 [facility] Comment on above: Performed By: #### P T, CMPX, MG, CDP #### [facility] [address] [place] [address] 04318 Calcium mass conc 7.3 mg/dL Low 8.6-10.4 [facility] Comment on above: Performed By: #### P T, CMPX, MG, CDP #### [facility] [address] [place] [address] 29974 Chloride molar conc 105 mmol/L Normal 98-107 [facility] Comment on above: Performed By: #### P T, CMPX, MG, CDP #### [facility] [address] [place] [address] 31477 CO2 molar conc 18 mmol/L Low 20-31 [facility] Comment on above: Performed By: #### P T, CMPX, MG, CDP #### [facility] [address] [place] [address] 58319 Creatinine mass conc 1.09 mg/dL High 0.50-0.90 [facility] Comment on above: Performed By: #### P T, CMPX, MG, CDP #### [facility] [address] [place] [address] 07880 GFR, Amer >60 Normal >60 [facility] Comment on above: Performed By: #### P T, CMPX, MG, CDP #### [facility] [address] [place] [address] 02848 GFR,non Amer 56 mL/min Low >60 [facility] Comment on above: Performed By: #### P T, CMPX, MG, CDP #### [facility] [address] [place] [address] 78186 Glucose mass conc 128 mg/dL High 70-99 [facility] Comment on above: Performed By: #### P T, CMPX, MG, CDP #### [facility] [address] [place] [address] 92578 Potassium molar conc 3.6 mmol/L Low 3.7-5.3 [facility] Comment on above: Performed By: #### P T, CMPX, MG, CDP #### [facility] [address] [place] [address] 94529 Protein mass conc 5.5 g/dL Low 6.4-8.3 [facility] Comment on above: Performed By: #### P T, CMPX, MG, CDP #### [facility] [address] [place] [address] 52641 Sodium molar conc 134 mmol/L Low 135-144 [facility] Comment on above: Performed By: #### P T, CMPX, MG, CDP #### [facility] [address] [place] [address] 34478 Urea nitrogen mass conc 17 mg/dL Normal 6-20 [facility] Comment on above: Performed By: #### P T, CMPX, MG, CDP #### [facility] [address] [place] [address] 90470 BUN/CRE Ratio NOT REPORTED Normal 06-24 [facility] Comment on above: Performed By: #### P T, CMPX, MG, CDP #### [address] [address] Staging: NOT REPORTED Normal [facility] Comment on above: Performed By: #### P T, CMPX, MG, CDP #### [address] [address] Lactic Acid,Whole Blon 08-16 Lactic Acid,Whole Bl 1.2 mmol/L Normal 0.7-2.1 [facility] Comment on above: Performed By: #### L ACDS, TROPI, PRCAL, MYCM #### [facility] [address] [place] [address] 37118 Lactic Acid,Whole Bl 1.2 mmol/L Normal 0.7-2.1 [facility] Comment on above: Performed By: #### L ACWB #### [address] [address] Magnesiumon 08-16-2018 Magnesium mass conc 2.0 mg/dL Normal 1.6-2.6 [facility] Comment on above: Performed By: #### L ACDS, TROPI, PRCAL, MYCM #### [address] [address] Mycoplasma Ab,IgMon 08-16-20 18 Mycoplasma Ab,IgM 0.22 Normal <0.91 [facility] Comment on above: Result Comment: Reference Range: <=0.90 Negative 0.91-1.09 Equivocal >=1.10 Positive Performed By: #### L ACDS, TROPI, PRCAL, MYCM #### [facility] [address] [place] [address] 69822 PTon 08-16-2018 INR Coag RelTime (PPP) 1.0 {INR} Normal [facility] Comment on above: Result Comment: Therapeutic Range: Moderate Anticoagulant Intensity: INR = 2.0-3.0 High Anticoagulant Intensity: INR = 2.5-3.5 Performed By: #### P T, CMPX, MG, CDP #### [facility] [address] [place] [address] [phone] Prothrombin time (PT) Coag time (PPP) 11.0 s Normal 9.0-12.0 [facility] Comment on above: Performed By: #### P T, CMPX, MG, CDP #### [facility] [address] [place] [address] 18694 Troponinon 08-16-2018 Troponin I.cardiac mass conc Normal [facility] Comment on above: Result Comment: Refe [...] information for diagnosis. Performed By: #### T ROPJanny #### [facility] [address] [place] [address] [phone] Troponin I.cardiac mass conc ng/mL Normal <0.03 [facility] Comment on above: Result Comment: Trop onin T results cannot be compared to Troponin-I results. Performed By: #### T ROPI #### [facility] [address] [place] [address] [phone] XR CHEST (2 VW)on 08-16-2018 XR CHEST [...] Noe Mitchell MD 08/16/18 Final result Normal [facility] Lactate, Sepsison 08-15-2018 Lactic Acid,Sep Wbld 3.5 mmol/L High 0.5-1.9 [facility] Comment on above: Performed By: #### L ACDS, TROPI, PRCAL, MYCM #### [facility] [address] [place] [address] [phone] Lactic Acid, Sepsis NOT REPORTED Normal 0.5-1.9 [facility] Comment on above: Performed By: #### L ACDS, TROPI, PRCAL, MYCM #### [facility] [address] [place] [address] [phone] Legionella Ag, Uron 08-15-20 18 Legionella Ag, [...] this test. Report Status FINAL 08/15/2018 Normal [facility] Comment on above: Performed By: #### U LAG #### [address] [phone] Procalcitoninon 08-15-2018 Protein mass conc 3.39 ng/mL High <0.09 [facility] Comment on above: Result Comment: Suspected [...] entered into the Change in Procalcitonin Calculator ([email or web address]) to determine the patient's Mortality Risk Prognosis Performed By: #### L ACDS, TROPI, PRCAL, MYCM #### [employer] [address] [place] [address] 72128 Strep pneum Ag,CSF/Uron 08-05 Strep pneum Ag,CSF/Ur Specimen Description .CLEAN CATCH URINE Special Requests NOT REPORTED Direct Exam NEGATIVE: Strep pneumoniae antigen not detected Report Status FINAL 08/15/2018 Normal [facility] Comment on above: Performed By: #### S PAG #### [facility] [address] [place] [address] 33712 Troponinon 08-15-2018 Troponin I.cardiac mass conc ng/mL Normal <0.03 [facility] Comment on above: Result Comment: Trop onin T results cannot be compared to Troponin-I results. Performed By: #### L ACDS, TROPI, PRCAL, MYCM #### [employer] [address] [place] [address] 22419 Troponin I.cardiac mass conc Normal [facility] Comment on above: Result Comment: Refe [...] #### L ACDS, TROPI, PRCAL, MYCM #### [employer] [address] [place] [address] [phone] Urinalysison 11-18-2017 Bilirubin, Urine Negative Invalid Interpretation Code NEG;NEGATIVE [facility] Blood, Urine Moderate Abnormal NEG;NEGATIVE [facility] Interpretation and review of laboratory results Abnormal Invalid Interpretation Code [facility] Nitrite, Urine Negative Invalid Interpretation Code NEG;NEGATIVE [facility] Protein, Urine Negative Invalid Interpretation Code NEG;NEGATIVE mg/dL [facility] RBCs, Urine 1 /HPF Invalid Interpretation Code 0 - 5 [facility] Squamous Epithelial < 1 Invalid Interpretation Code 0 - 40 /HPF [facility] Urine, bacteria in sediment Rare Invalid Interpretation Code NS;RARE /HPF [facility] Urine, character Hazy Invalid Interpretation Code [facility] Urine, color Yellow Invalid Interpretation Code [facility] Urine, glucose presence Negative Invalid Interpretation Code NEG;NEGATIVE mg/dL [facility] Urine, ketones presence Negative Invalid Interpretation Code NEG;NEGATIVE mg/dL [facility] Urine, leukocyte esterase presence Small Abnormal Negative [facility] Urine, pH 6.0 [pH] Invalid Interpretation Code 4.5 - 8.0 [facility] Urine, specific gravity 1.014 1 Invalid Interpretation Code 1.003 - 1.029 [facility] Urobilinogen, Urine < 2.0 Invalid Interpretation Code <2 mg/dL [facility] WBCs, Urine 6 /HPF High 0 - 5 [facility] CBC and Differentialon 11-17 Basophils 0.7 % Invalid Interpretation Code [facility] Basophils 0.1 K/mcL Invalid Interpretation Code 0 - 0.2 [facility] Eosinophils 0.2 K/mcL Invalid Interpretation Code 0 - 0.5 [facility] Erythrocytes (RBC) 3.97 M/mcL Invalid Interpretation Code 3.7 - 5.0 [facility] Hematocrit (HCT) 35.7 % Invalid Interpretation Code 34.4 - 44.8 % [facility] Hemoglobin (HGB) 12.2 g/dL Invalid Interpretation Code 11.6 - 15.4 g/dL [facility] Interpretation and review of laboratory results Abnormal Invalid Interpretation Code [facility] Lymphocytes 2.1 K/mcL Invalid Interpretation Code 1.0 - 3.7 [facility] MCH 30.6 pg Invalid Interpretation Code 27.9 - 33.9 pg [facility] MCHC 34.0 g/dL Invalid Interpretation Code 33.1 - 35.1 g/dL [facility] MCV 89.8 fL Invalid Interpretation Code 82.6 - 98.9 [facility] Monocytes 0.6 K/mcL Invalid Interpretation Code 0.1 - 0.6 [facility] Neutrophils 6.6 K/mcL Invalid Interpretation Code 1.2 - 6.9 [facility] Platelet mean volume (PMV) 8.6 fL Invalid Interpretation Code 7.0 - 10.6 [facility] Platelets 196 K/mcL Invalid Interpretation Code 162 - 402 [facility] RDW-CA 15.0 % High 10 - 14.4 % [facility] Segmented Neut 69.6 % Invalid Interpretation Code [facility] T8 suppressor/100 cells 1.8 10*3/uL Invalid Interpretation Code [facility] T8 suppressor/100 cells 21.8 10*3/uL Invalid Interpretation Code [facility] T8 suppressor/100 cells 6.1 10*3/uL Invalid Interpretation Code [facility] WBC (Leukocytes) 9.5 K/mcL Invalid Interpretation Code 3.4 - 10.6 [facility] Comprehensive Metabolic Pane lyn 11-17-2017 Alanine aminotransferase (ALT) 18 U/L Invalid Interpretation Code 14 - 65 U/L [facility] Albumin 3.1 g/dL Low 3.2 - 5.2 g/dL [facility] Alkaline phosphatase (ALP) 78 U/L Invalid Interpretation Code 40 - 140 U/L [facility] Aspartate aminotransferase (AST) 7 U/L Invalid Interpretation Code 0 - 45 U/L [facility] Calcium 8.6 mg/dL Invalid Interpretation Code 8.4 - 10.2 mg/dL [facility] Chloride 106 mmol/L Invalid Interpretation Code 98 - 108 mmol/L [facility] CO2 27 mmol/L Invalid Interpretation Code 21 - 32 mmol/L [facility] Creatinine 1.13 mg/dL High 0.4 - 1.1 mg/dL [facility] eGFR (black) mL/min/{1.73_m2} Invalid Interpretation Code ml/min/1.73sq .m [facility] eGFR (non-black) 54 mL/min/{1.73_m2} Low >60 [facility] Glucose 113 mg/dL High 70 - 99 mg/dL [facility] Interpretation and review of laboratory results Abnormal Invalid Interpretation Code [facility] Potassium 3.7 mmol/L Invalid Interpretation Code 3.5 - 5.1 mmol/L [facility] Protein 6.8 g/dL Invalid Interpretation Code 6 - 8 g/dL [facility] Sodium 140 mmol/L Invalid Interpretation Code 135 - 145 mmol/L [facility] Urea nitrogen 17 mg/dL Invalid Interpretation Code 8 - 25 mg/dL [facility] Urine, bilirubin presence 0.4 mg/dL Invalid Interpretation Code 0.3 - 1.2 mg/dL [facility] Lipaseon 11-17-2017 Lipase 167 U/L Invalid Interpretation Code 73 - 393 U/L [facility] Vital Signs Date Time Vital Sign Value Performing Clinician Yovani mclaughlin 10-11-2024 09:42-0500 Body height 157.5 cm Sherman Adair MD Work Phone: [facility] 10-11-2024 09:42-0500 Body mass index (BMI) [Ratio] 38.23 kg/m2 Sherman Adair MD Work Phone: [facility] 10-11-2024 09:42-0500 Body temperature 98.29 [degF] Sherman Adair MD Work Phone: [facility] 10-11-2024 09:42-0500 Body weight 94.8 kg Sherman Adair MD Work Phone: [facility] 09-14-2024 11:30-0500 Body height 157.5 cm Fozia Meng [employer] Work Phone: [facility] 09-14-2024 11:30-0500 Body mass index (BMI) [Ratio] 39.91 kg/m2 Fozia Meng [employer] Work Phone: [facility] 09-14-2024 11:30-0500 Body weight 98.97 kg Fozia Meng [employer] Work Phone: [facility] 09-14-2024 11:30-0500 Diastolic blood pressure 70 mm[Hg] Fozia Meng [employer] Work Phone: [facility] 09-14-2024 11:30-0500 Systolic blood pressure 140 mm[Hg] Fozia Meng ONUR Work Phone: [facility] 06-10-2024 10:09-0400 Body height 157.5 cm Tiffanie Casas MD Work Phone: [facility] 06-10-2024 10:09-0400 Body mass index (BMI) [Ratio] 38.96 kg/m2 Tiffanie Casas MD Work Phone: [facility] 06-10-2024 10:09-0400 Body weight 96.62 kg Tiffanie Casas MD Work Phone: [facility] 06-10-2024 10:09-0400 Diastolic blood pressure 84 mm[Hg] Tiffanie Casas MD Work Phone: [facility] 06-10-2024 10:09-0400 Systolic blood pressure 132 mm[Hg] Tiffanie Casas MD Work Phone: [facility] 05-10-2024 14:20-0400 Body height 157.5 cm Lore Ginger DO Work Phone: [facility] 05-10-2024 14:20-0400 Body mass index (BMI) [Ratio] 38.41 kg/m2 Lore Ginger DO Work Phone: [facility] 05-10-2024 14:20-0400 Body weight 95.25 kg Lore Ginger DO Work Phone: [facility] 05-10-2024 14:20-0400 Diastolic blood pressure 74 mm[Hg] Lore Ginger DO Work Phone: [facility] 05-10-2024 14:20-0400 Heart rate 83 /min Lore Ginger DO Work Phone: [facility] 05-10-2024 14:20-0400 SaO2% (BldA) [Mass fraction] 97 % Lore Ginger DO Work Phone: [facility] 05-10-2024 14:20-0400 Systolic blood pressure 118 mm[Hg] Lore Miles DO Work Phone: [facility] 03-03-2023 14:44-0400 Body temperature 98.49 [degF] MASSIMO Moralezmann DPM Work Phone: [facility] 03-03-2023 14:44-0400 Diastolic blood pressure 87 mm[Hg] CJ Hassmann DPM Work Phone: [facility] 03-03-2023 14:44-0400 Heart rate 94 /min CJ Hassmann DPM Work Phone: [facility] 03-03-2023 14:44-0400 Systolic blood pressure 139 mm[Hg] MASSIMO Hassmann DPM Work Phone: [facility] 07-02-2022 09:36-0400 Body height 157.5 cm [employer] Work Phone: [facility] 07-02-2022 09:36-0400 Body mass index (BMI) [Ratio] 38.67 kg/m2 [employer] Work Phone: [facility] 07-02-2022 09:36-0400 Body weight 95.89 kg [employer] Work Phone: [facility] 09-16-2020 20:53-0500 BMI (Body Mass Index) 39.32 kg/m2 [facility] [place] 09-16-2020 20:53-0500 Body Temperature 99.5 [degF] [facility] [place] 09-16-2020 20:53-0500 Body weight 97.52 kg [facility] [place] 09-16-2020 20:53-0500 BP Diastolic 109 mm[Hg] [facility] [place] 09-16-2020 20:53-0500 BP Systolic 189 mm[Hg] [facility] [place] 09-16-2020 20:53-0500 Height 157.5 cm [facility] [place] 09-16-2020 20:53-0500 Pulse (Heart Rate) 99 /min [facility] 09-[facility] 20:53-0500 Pulse Oximetry 96 % Robbin Rooney [place], [place] 09-16-2020 20:53-0500 Respiratory Rate 18 /min Robbin Rooney [place] Encounters Encounter Date Encounter Type Care Provider Facility Start: 10-11-2024 End: 10-11-2024 Office outpatient new 45 minutes Felipe Adam MD Work Phone: [facility] Comment on above: Thyroid nodule (Prim misa Dx); Lipoma of neck Start: 10-11-2024 End: 10-11-2024 ambulatory FELIPE ADAM [facility] Start: 10-05-2024 End: 10-06-2024 Preet Casas MD Work Phone: [facility] Comment on above: Idiopathic progressi ve polyneuropathy; Non-seasonal allergic rhinitis due to pollen Start: 09-14-2024 End: 09-14-2024 Bamboo flowsheet Fozia Jamila Meng [employer] Work Phone: [facility] Start: 09-14-2024 End: 09-14-2024 Bamboo flowsheet Fozia C Windnagel [employer] Work Phone: [facility] Start: 09-14-2024 End: 09-14-2024 Telephone encounter Fozia Meng [employer] Work Phone: [facility] Start: 09-14-2024 End: 09-14-2024 Office outpatient visit 25 minutes Fozia Jamila Meng [employer] Work Phone: [facility] Comment on above: BUCK on CPAP (Primary Dx); Idiopathic progressive polyneuropathy; Intractable 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 (CMS/HCC); Restless legs; Bilateral carpal tunnel syndrome Start: 09-14-2024 End: 09-14-2024 ambulatory FOZIA Jamila MENG Not Available Start: 09-09-2024 End: 09-09-2024 Transcribe Orders Fozia Marcus MA [facility] [place] [facility] Comment on above: Thyroid nodule (Prim misa Dx) Start: 09-06-2024 ambulatory FELIPE ADAM [facility] Start: 09-06-2024 End: 09-08-2024 Subsequent hospital visit by physician Felipe Adam MD Work Phone: [facility] Comment on above: Thyroid nodule Start: 08-11-2024 End: 08-11-2024 Refill Tiffanie Casas MD Work Phone: [facility] Comment on above: Idiopathic progressi ve polyneuropathy; Non-seasonal allergic rhinitis due to pollen Start: 06-10-2024 End: 06-10-2024 Bamhany flowsheet Tiffanie Casas MD Work Phone: [facility] Start: 06-10-2024 End: 06-10-2024 Ashly flowsheet Tiffanie Casas MD Work Phone: [facility] Start: 06-10-2024 End: 06-10-2024 Office outpatient visit 25 minutes Tiffanie Casas MD Work Phone: [facility] Comment on above: Idiopathic progressi ve polyneuropathy (Primary Dx); Bilateral carpal tunnel syndrome; Restless legs; Intractable 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 (CMS/HCC) Start: 06-10-2024 End: 06-10-2024 ambulatory TIFFANIE CASAS Not Available Start: 05-10-2024 End: 05-10-2024 ambulatory HEATHER KAMADANA [facility] Start: 05-10-2024 End: 05-10-2024 Subsequent hospital visit by physician Felipe Adam MD Work Phone: [facility] Start: 05-10-2024 End: 05-10-2024 Office outpatient visit 40 minutes Lore Miles DO Work Phone: [facility] Comment on above: BUCK (obstructive sle ep apnea); Hypersomnia; Snoring; Class 2 obesity due to excess calories with body mass index (BMI) of 38.0 to 38.9 in adult, unspecified whether serious comorbidity present Start: 05-10-2024 End: 05-10-2024 ambulatory LORE MILES Not Available Start: 05-06-2024 End: 05-08-2024 ambulatory [facility] Start: 05-02-2024 End: 05-02-2024 ambulatory FELIPE BACK [facility] Start: 03-02-2024 End: 03-02-2024 ambulatory FELIPE BACK [facility] Start: 02-15-2024 End: 02-15-2024 ambulatory Frances Harris Facility:[facility] Start: 02-15-2024 End: 02-15-2024 ambulatory DPM Frances Harris Work Phone: [facility] Work Phone: Start: 02-15-2024 End: 02-15-2024 Departed Referred DPM rFances Harris Work Phone: [facility] Start: 02-10-2024 End: 02-10-2024 ambulatory FELIPE BACK [facility] Start: 01-29-2024 End: 01-29-2024 ambulatory FELIPE BACK [facility] Start: 10-29-2023 End: 10-29-2023 ambulatory TIFFANIE CASAS Not Available Start: 06-15-2023 End: 06-15-2023 Subsequent hospital visit by physician Felipe Adam MD Work Phone: [facility] Comment on above: Mixed hyperlipidemia Start: 04-03-2023 ambulatory FELIPE BACK [facility] Start: 03-03-2023 End: 03-03-2023 Office outpatient new 45 minutes MASSIMO Shook DPM Work Phone: [facility] Comment on above: Charcot arthropathy of midfoot (Primary Dx); Gastrocnemius equinus, unspecified laterality; Foot pain, left Start: 02-11-2023 End: 02-12-2023 ambulatory FRANCES HARRIS Facility: Start: 02-05-2023 End: 02-05-2023 Subsequent hospital visit by physician Felipe Adam MD Work Phone: [facility] Comment on above: Pelvic pressure in f emale Start: 02-04-2023 End: 02-05-2023 ambulatory [facility] Facility:[facility] Start: 01-28-2023 End: 01-29-2023 ambulatory [facility] Facility:[facility] Start: 01-06-2023 End: 01-06-2023 Emergency department patient visit [facility] Start: 07-09-2022 End: 07-09-2022 Subsequent hospital visit by physician JOE Cameron RD Work Phone: [facility] Comment on above: Arrived Start: 07-02-2022 End: 07-02-2022 Subsequent hospital visit by physician [facility] Work Phone: [facility] Start: 06-25-2022 End: 06-27-2022 Subsequent hospital visit by physician [facility] Additional Xray [facility] Comment on above: Foreign body (FB) in soft tissue Start: 06-25-2022 End: 06-27-2022 Subsequent hospital visit by physician [facility] Mri Scanner [facility] MRI Comment on above: Pain of foot, unspec ified laterality; Closed nondisplaced fracture of second metatarsal bone of left foot, initial encounter; Closed nondisplaced fracture of lateral cuneiform of left foot, initial encounter Start: 05-27-2022 End: 2022 Subsequent hospital visit by physician [facility] Ultrasound Room [facility]trasound Comment on above: Neck mass Start: 04-28-2022 End: 04-29-2022 ambulatory [facility] Start: 04-28-2022 End: 04-28-2022 Subsequent hospital visit by physician Felipe Adam MD Work Phone: [facility] Comment on above: Acute cystitis with hematuria Start: 04-12-2022 End: 04-12-2022 Subsequent hospital visit by physician Felipe Adam MD Work Phone: [facility] Laboratory Comment on above: Fatigue, unspecified type; Encounter for screening for HIV; Mixed hyperlipidemia; Hyperglycemia; Chronic renal impairment, stage 3b (HCC) Start: 02-05-2022 End: 02-05-2022 Subsequent hospital visit by physician Christel Donohue PT [facility] Start: 02-04-2022 End: 02-04-2022 Patient encounter procedure [facility] [address] Start: 02-03-2022 End: 02-03-2022 Subsequent hospital visit by physician Hilaria Trujillo [facility] Start: 01-29-2022 End: 01-29-2022 Subsequent hospital visit by physician Beverly Rangel [employer]IST[employer] TECHNICIAN [facility] Comment on above: Arrived Start: 01-27-2022 End: 01-27-2022 Subsequent hospital visit by physician Christel Donohue PT [facility] Comment on above: Arrived Start: 01-24-2022 End: 01-24-2022 Subsequent hospital visit by physician Vanessa Garcia PT [facility] Comment on above: Arrived Start: 01-22-2022 End: 01-22-2022 Subsequent hospital visit by physician Beverly Rangel VETERINARY ASSISTANT TECHNICIAN [facility] Start: 01-17-2022 End: 01-17-2022 Subsequent hospital visit by physician Beverly Rangel VETERIN[employer] ASSISTANT TECHNICIAN [facility] Comment on above: Arrived Start: 01-13-2022 End: 01-13-2022 Subsequent hospital visit by physician Christel Donohue PT [facility] Start: 01-03-2022 End: 01-03-2022 Subsequent hospital visit by physician Beverly Rangel VETERIN[employer] ASSISTANT TECHNICIAN [facility] Comment on above: Arrived [...] on above: Arrived Start: 11-29-2021 End: 11-29-2021 [facility] Start: 08-01-2021 End: 08-01-2021 Subsequent [...] End: 02-13-2021 Subsequent hospital visit by physician [facility] Andriy19 Pat Screening Schedule [facility] Comment on above: Suspected COVID-19 v irus infection Start: 01-21-2021 End: 01-21-2021 Subsequent hospital visit by physician [facility] Covid19 Pat Screening Schedule [facility] Comment on above: Viral illness Start: 11-15-2020 End: 11-15-2020 Subsequent hospital visit by physician [facility] Covid19 Pat Screening Schedule [facility] Comment on above: Arrived Start: 09-16-2020 End: 09-16-2020 Emergency department patient visit Robbin Rooney Work Phone: [facility] ED Comment on above: Acute thoracic back pain, unspecified back pain laterality (Primary Dx) Start: 08-24-2020 End: 08-24-2020 Subsequent hospital visit by physician Felipe Adam [facility] Laboratory Comment on above: Epidural abscess Start: 08-08-2020 End: 08-08-2020 Subsequent hospital visit by physician Felipe Adam [facility] Laboratory Comment on above: SOB (shortness of br eath) Start: 07-24-2020 End: 07-24-2020 Subsequent hospital visit by physician Felipe Adam [facility] Laboratory Comment on above: Epidural abscess Start: 06-07-2020 End: 06-07-2020 Subsequent hospital visit by physician Felipe Adam [facility] Laboratory Start: 05-25-2020 End: 05-25-2020 Subsequent hospital visit by physician Felipe Adam [facility] Laboratory Comment on above: Vitamin D deficiency ; Mixed hyperlipidemia; Hyperglycemia Start: 12-14-2019 End: 12-14-2019 Subsequent hospital visit by physician Felipe Adam [facility] Laboratory Comment on above: MRSA (methicillin re sistant Staphylococcus aureus) septicemia (HCC) Start: 09-24-2019 End: 09-24-2019 Subsequent hospital visit by physician Felipe Adam MD Work Phone: [facility] Laboratory Start: 09-12-2019 End: 09-12-2019 Subsequent hospital visit by physician Felipe Adam MD Work Phone: [facility] SLEEP [facility] Start: 08-29-2019 End: 08-29-2019 Subsequent hospital visit by physician [facility] Schedule [facility]EP [facility] Comment on above: Arrived Start: 07-28-2019 End: 07-30-2019 Subsequent hospital visit by physician Tennille Additional Xray [facility] Radiology Comment on above: MRSA (methicillin re sistant Staphylococcus aureus) septicemia (HCC) Start: 06-17-2019 End: 06-17-2019 Subsequent hospital visit by physician Felipe Adam [facility] Laboratory Comment on above: MRSA (methicillin re sistant Staphylococcus aureus) infection Start: 02-03-2019 End: 02-04-2019 Patient encounter procedure TIFFANIE CASAS [facility] Start: 02-03-2019 End: 02-03-2019 Subsequent hospital visit by physician Tiffanie Casas Work Phone: [facility] MRI Comment on above: Brachial neuritis; Peripheral nerve disorder; Spasm of muscle Start: 11-10-2018 End: 11-10-2018 Patient encounter procedure Andery Early Facility:[place] Start: 10-18-2018 End: 10-18-2018 Patient encounter procedure Andrey Clarke Sharath Work Phone: [facility] Start: 10-03-2018 Patient encounter procedure Dav Pembertoni Facility:[place] Start: 10-03-2018 End: 10-03-2018 Patient encounter procedure Felipe Adam [facility] Start: 09-20-2018 End: 09-21-2018 Patient encounter procedure Gosia Hartman Facility:[facility] Start: 09-20-2018 Patient encounter procedure Facility:[id number] Start: 09-13-2018 Patient encounter procedure GOSIA HARTMAN [facility] Start: 09-06-2018 End: 09-06-2018 Patient encounter procedure Historical Provider [facility] Start: 08-31-2018 End: 08-31-2018 Patient encounter procedure Historical Provider [facility] Start: 08-27-2018 End: 08-28-2018 Patient encounter procedure Gosia Hartman Facility:[facility] Start: 08-27-2018 Patient encounter procedure Facility:[id number] Start: 08-15-2018 End: 08-25-2018 Evaluation and management of inpatient JV APPLE [facility] Start: 04-02-2018 End: 04-02-2018 Patient encounter procedure Melchortaylor Garcianer Facility:[place] Start: 03-23-2018 Patient encounter procedure Shanice Jose Manuel Facility:[place] Start: 02-04-2018 End: 02-04-2018 Ambulatory Melchor Weston Kvng [facility] Start: 11-24-2017 Patient encounter procedure [facility] Start: 11-17-2017 End: 11-17-2017 Ambulatory Ceferino Corley Work Phone: [facility] Start: 10-20-2017 End: 10-20-2017 Ambulatory DAKSHA BETANCOURT [facility] Start: 10-20-2017 Patient encounter procedure GAYE [facility] Start: 10-09-2017 [facility] Start: 10-09-2017 End: 10-09-2017 Patient encounter procedure GAYE [facility] Start: 09-16-2017 Patient encounter procedure GAYE [facility] Start: 08-03-2017 Ambulatory GAYE [facility] Start: 03-31-2017 End: 03-31-2017 Ambulatory SHANICE JUARES [facility] Procedures Date Procedure Procedure Detail Performing Clinician Start: 09-06-2024 Us soft tissue head & neck real time imge haven Adam MD Work Phone: Start: 05-10-2024 Renal function panel Soumya oFrbes MD Work Phone: Start: 05-10-2024 Urnls dip [...] MD Work Phone: Start: 01-21-2021 COVID-19 Pattie Meka Tafoya lliams MEDICAL ASSISTANT [employer] Work Phone: Start: 11-15-2020 COVID-19 Gosia Jau regui Work Phone: Start: 09-16-2020 Urnls dip stick/tabl [...] 06-07-2020 Protein total xcpt refractometry urine Heather Kamadana Work Phone: Start: 06-07-2020 Urnls dip stick/tabl [...] Start: 09-24-2019 Hemoglobin glycosyla jamia a1c Janel Sales Edeniani MEDICAL ASSISTANT [employer] - [employer] Work Phone: Start: 09-24-2019 VITAMIN B12 & FOLATE Ja danny Sales Graziani MEDICAL ASSISTANT [employer] - [employer] Work Phone: Start: 07-28-2019 Radex spine cervical 4 or 5 views Azalea Longthorne Work Phone: Start: 07-28-2019 Blood count complete auto&auto difrntl wbc Azalea Longthorne MEDICAL ASSISTANT [employer] Work Phone: Start: 07-28-2019 C-reactive protein Azalea Longthorne MEDICAL ASSISTANT [employer] Work Phone: Start: 06-17-2019 Albumin serum plasma /whole blood Heather Forbes Work Phone: Start: 06-17-2019 Assay of magnesium Ashely Forbes Work Phone: Start: 06-17-2019 Assay of phosphorus inorganic Heather Forbes Work Phone: Start: 06-17-2019 Assay of urea nitrog en quantitative Heather Forbes Work Phone: Start: 06-17-2019 Blood count hemoglobin Heather Forbes Work Phone: Start: 06-17-2019 Calcium total Heather king Work Phone: Start: 06-17-2019 Electrolyte panel Polly Forbes Work Phone: Start: 06-17-2019 Protein total xcpt [...] Unless otherwise noted, all testing performed by [facility] [place] [address] [address], [place] [address] CLIA: [id number] [employer]: Harshad Solano M.D. Start: 09-06-2018 End: 09-06-2018 LABS (OUTSIDE) Historical Provider Start: 08-31-2018 End: 08-31-2018 LABS (OUTSIDE) Historical Provider Start: 08-25-2018 IP CONSULT TO HOME C ARE NEEDS JV ZECHARIAH Start: 08-25-2018 Assay of magnesium WASE EM APPLE Start: 08-25-2018 Basic metabolic pane l calcium total JV APPLE Start: 08-25-2018 Blood count complete auto&auto difrntl wbc JV APPLE Start: 08-25-2018 Procalcitonin (pct) WAS MARISABEL APPLE Start: 08-25-2018 DISCHARGE PATIENT JUJU APPLE Start: 08-25-2018 PULSE OXIMETRY, CONTINUOUS JV APPLE Start: 08-25-2018 INSERT PICC LINE JV APPLE Start: 08-25-2018 MISCELLANEOUS NURSIN G CARE ORDER (SPECIFY) JV APPLE Start: 08-25-2018 DME ORDER FOR WALKER OP JV APPLE Start: 08-25-2018 PULSE OXIMETRY, CONTINUOUS JV APPLE Start: 08-25-2018 NOTIFY PHYSICIAN (SPECIFY) JV APPLE Start: 08-25-2018 NURSING COMMUNICATION W MITCHELEDIN APPLE Start: 08-25-2018 NASAL CANNULA OXYGEN BRITTA APPLE Start: 08-25-2018 INCENTIVE SPIROMETRY RT JV APPLE Start: 08-25-2018 INITIATE OXYGEN THER APY PROTOCOL JV APPLE Start: 08-25-2018 PULSE OXIMETRY, CONTINUOUS JV APPLE Start: 08-25-2018 Assay of magnesium SHOAIB APPLE Start: 08-25-2018 Basic metabolic pane l calcium total JV APPLE Start: 08-25-2018 Blood count complete auto&auto difrntl wbc JV APPLE Start: 08-25-2018 PULSE OXIMETRY, CONTINUOUS JV APPLE Start: 08-25-2018 PULSE OXIMETRY, CONTINUOUS JV APPLE Start: 08-24-2018 PULSE OXIMETRY, CONTINUOUS JV APPLE Start: 08-24-2018 DIET GENERAL JV LEON Velma Start: 08-24-2018 OT EVAL AND TREAT [...] Start: 08-23-2018 IP CONSULT TO IV TEAM W MITCHEL APPLE Start: 08-23-2018 INCENTIVE SPIROMETRY RT JV [...] 08-20-2018 PULSE OXIMETRY, CONTINUOUS JVMARISABEL APPLE Start: 08-19-2018 PULSE OXIMETRY, CONTINUOUS JVMARISABEL APPLE Start: 08-19-2018 IP CONSULT TO ORTHOP EDIC SURGERY JV APPLE Start: 08-19-2018 Procalcitonin (pct) WAS EEMónica APPLE Start: 08-19-2018 PULSE OXIMETRY, CONTINUOUS JVMARISABEL APPLE Start: 08-19-2018 Mri spinal canal cer vical w/o & w/contr matrl JVMARISABEL APPLE Start: 08-19-2018 Mri spinal canal lum bar w/o & w/contr matrl JVMARISABEL APPLE Start: 08-19-2018 Mri spinal canal tho racic w/o & w/contr matrl JVMARISABEL APPLE Start: 08-19-2018 PULSE OXIMETRY, CONTINUOUS JV APPLE Start: 08-19-2018 INCENTIVE SPIROMETRY RT JV APPLE Start: 08-19-2018 INITIATE OXYGEN THER APY PROTOCOL VJ APPLE Start: 08-19-2018 PULSE OXIMETRY, CONTINUOUS JV APPLE Start: 08-19-2018 IP CONSULT TO IV TEAM Jone APPLE Start: 08-19-2018 Assay of magnesium TEOTae JESUS APPLE Start: 08-19-2018 Blood count complete auto&auto difrntl wbc JV APPLE Start: 08-19-2018 PULSE OXIMETRY, CONTINUOUS JV APPLE Start: 08-19-2018 PULSE OXIMETRY, CONTINUOUS JV APPLE Start: 08-18-2018 PULSE OXIMETRY, CONTINUOUS JVMARISABEL APPLE Start: 08-18-2018 PULSE OXIMETRY, CONTINUOUS JVMARISABEL APPLE Start: 08-18-2018 PULSE OXIMETRY, CONTINUOUS JVMARISABEL APPLE Start: 08-18-2018 TELEMETRY MONITORING BRITTA APPLE Start: 08-18-2018 INCENTIVE SPIROMETRY RT JVMARISABEL APPLE Start: 08-18-2018 INITIATE OXYGEN THER APY [...] IP CONSULT TO IV TEAM W MITCHEL ZECHARIAH Start: 08-16-2018 Assay of magnesium SHOAIB APPLE [...] JV APPLE Start: 08-15-2018 CULTURE BLOOD #1 JVMARISABEL APPLE Start: 08-15-2018 MYCOPLASMA PNEUMONIA E ANTIBODY, IGM JV APPLE Start: 08-15-2018 Procalcitonin (pct) WAS Mónica APPLE Start: 08-15-2018 Troponin I.cardiac m ass [...] JV APPLE Start: 08-15-2018 PULSE OXIMETRY, CONTINUOUS JVMARISABEL APPLE Start: 08-15-2018 VITAL SIGNS JV Carreon Start: 08-15-2018 PATIENT STATUS (DIRECT) JV APPLE Start: 12-09-2017 Colonoscopy Felipe Adam MD Work Phone: Start: 03-20-2017 Microscopic observat ion [Identifier] in Cervix by Cyto stain Tiffanie Casas Plan of Treatment Date Care Activity Detail Author Start: 2029 Shingles Vaccine (1 of 2) Shingles Vaccine (1 of 2) [facility] [place] Start: 05-02-2029 Lipid [facility] Start: 12-10-2027 [facility]ening for malignant [facility]oplasm [facility] Start: 04-12-2027 Lipid panel Lipids [facility] [employer] Start: 05-14-2026 Lipid panel [employer] Start: 10-12-2025 End: 10-12-2025 Patient encounter procedure 10/12/2025 10:30 AM EST Office Visit [facility] [address] [place] [address] [place] [phone] Sherman Adair MD [address] [place] [id number] [facility] Start: 10-11-2025 End: 10-11-2026 US Head and neck soft tissue US Soft Tissue Neck Imaging Routine Thyroid nodule Expected: 10/11/2025, Expires: 10/11/2026 [facility] Work Phone: Comment on above: Expected: 10/11/2025, Expires: Start: 05-25-2025 Lipid panel Lipid screen [place], [place] Start: 05-10-2025 GFR test (Diabetes, CKD 3-4, OR last GFR 15-59) GFR test (Diabetes, CKD 3-4, OR last GFR 15-59) [facility] Start: 05-02-2025 Hemoglobin A1c measurement A1C test (Diabetic or Prediabetic) [facility] Start: 01-27-2025 Depression Monitoring Depression Monitoring [facility] Start: 11-14-2024 End: 11-14-2024 Patient encounter procedure 11/14/2024 11:20 AM EST Office Visit [facility] [address] [facility] [address] [place] [phone] Fozia Meng, [employer] [address], [address] [phone] [facility] Start: 11-11-2024 End: 11-11-2024 Patient encounter procedure 11/11/2024 1:00 PM EST Office Visit [facility] [address] [place] [address] Felipe Adam MD [address] [place] [address] 6 mo [facility] Comment on above: 6 mo Start: 09-24-2024 Screening for malignant neoplasm of cervix [facility] Start: 09-14-2024 End: 09-14-2024 Patient encounter procedure 09/14/2024 11:20 AM EST Office Visit [facility] [address] [facility] [address] [place] [phone] Fozai Meng [employer] [address], [facility] [address] [place] [phone] Arrived [facility] Comment on above: Arrived Start: 09-08-2024 DTaP/Tdap/Td vaccine (2 - Td or Tdap) DTaP/Tdap/Td vaccine (2 - Td or Tdap) [facility] Start: 09-08-2024 DTaP/Tdap/Td vaccine (2 - Td) DTaP/Tdap/Td vaccine (2 - Td) [place], [place] Start: 09-08-2024 Tetanus vaccination [facility] Start: 09-05-2024 End: 09-05-2024 Patient encounter procedure 09/05/2024 1:00 PM EST Office Visit [facility] [address] [facility] [address] [place] [address] Tiffanie Casas MD [address] [facility] [address] [place], [place] [phone] [facility] Start: 08-18-2024 End: 08-18-2024 Patient encounter procedure 08/18/2024 1:30 PM EST Office Visit [facility] [address] [facility] 2nd [place] [address] Luis Mclean, PA-C [address] [place] [address] [facility] [address] [place] [address] 1 yr med chk [facility] Comment on above: 1 yr med chk Start: 08-02-2024 End: 08-02-2024 Patient encounter procedure 08/02/2024 10:45 AM EDT Office Visit [facility] [address] [place] [phone] Lore Miles DO [address] [place] [address] [facility] Start: 07-11-2024 End: 07-11-2024 Telemedicine consultation with patient 07/11/2024 11:30 AM EDT Telemedicine [facility] [address] [place] [phone] Janel Allen, [employer] [address] [facility] [place] [address] [facility] [address] Start: 06-10-2024 End: 06-10-2024 Patient encounter procedure 06/10/2024 10:20 AM EDT Office Visit [facility] [address] [facility] [address] [place] [address] Tiffanie Casas MD [address], [place] [phone] Arrived [facility] Comment on above: Arrived Start: 06-05-2024 COVID-19 Vaccine ( season) COVID-19 Vaccine ( season) [facility] Start: 06-05-2024 COVID-19 Vaccine ( season) COVID-19 Vaccine ( season) [facility] Start: 06-05-2024 Influenza vaccination Influenza Vaccine (#1) [facility] Start: 2024 Screening for malignant neoplasm of colon [facility] Start: 05-17-2024 GFR test (Diabetes, CKD 3-4, OR last GFR 15-59) GFR test (Diabetes, CKD 3-4, OR last GFR 15-59) [facility] Start: 05-14-2024 Diabetes screen Diabetes screen [facility] Start: 05-12-2024 End: 05-12-2024 Patient encounter procedure 05/12/2024 11:00 AM EDT Office Visit [facility] Part of [address] [address] Lina Echols MD [address] [address] BUCK (obstructive sleep apnea) [facility] Part of [facility] Comment on above: BUCK (obstructive sleep apnea) Start: 05-11-2024 Lipid panel Lipid screen [facility], [place] Start: 05-11-2024 Lipid screen Lipid screen [facility], [place] Start: 05-05-2024 Influenza vaccination Flu vaccine (#1) [facility] Start: 03-23-2024 Depression Monitoring Depression Monitoring [facility] Start: 02-06-2024 GFR test (Diabetes, CKD 3-4, OR last GFR 15-59) GFR test (Diabetes, CKD 3-4, OR last GFR 15-59) [facility] Start: 02-06-2024 Hemoglobin A1c measurement A1C test (Diabetic or Prediabetic) [facility] Start: 08-13-2023 End: 08-13-2023 [facility] Start: 06-22-2023 End: 06-22-2023 Patient encounter procedure 06/22/2023 11:15 AM EDT Office Visit [address] [phone] Felipe Adam MD [address] [place] [address] [facility] Start: 06-05-2023 Influenza vaccination Sequential Influenza Vaccine (Season Ended) [facility] Start: 05-05-2023 Influenza vaccination [facility] Start: 04-14-2023 End: 04-14-2023 Patient encounter procedure 04/14/2023 Office Visit Family Medicine Felipe Adam MD [address] [place] [phone] [facility] Start: 04-12-2023 Hemoglobin A1c measurement A1C test (Diabetic or Prediabetic) [facility] Start: 04-11-2023 Depression Monitoring Depression Monitoring [facility] [employer] [facility] Start: 04-11-2023 History and physical examination, annual for health maintenance Wellness Visit [facility] Start: 12-25-2022 End: 12-25-2022 Patient encounter procedure 12/25/2022 Office Visit Infectious Diseases Dav Hartman MD [address] [facility] [address] [place] [address] [facility]. Start: 09-24-2022 Diabetes screen Diabetes screen [place], [place] Start: 08-07-2022 End: 08-07-2022 Patient encounter procedure 08/07/2022 Office Visit Urology Luis Mclean, PA-C [address] [facility] [address] [address] [facility] Start: 07-15-2022 End: 07-15-2022 Nursing evaluation of patient and report 07/15/2022 Nurse Only Family Medicine [facility] Start: 07-09-2022 End: 07-09-2022 Patient encounter procedure 07/09/2022 Appointment IP Unit Samantha Lino, RD, LD [facility] Start: 06-05-2022 Influenza vaccination [facility] Start: 05-20-2022 Creatinine measurement [facility] Start: 05-20-2022 Potassium [Moles/volume] in Serum or Plasma Potassium [facility] Start: 05-20-2022 Potassium monitoring Potassium monitoring [facility] Start: 05-14-2022 Creatinine measurement Creatinine monitoring [facility] Work Phone: Start: 05-14-2022 Potassium monitoring Potassium monitoring [facility] Work Phone: Start: 05-05-2022 Influenza vaccination Flu vaccine (#1) [facility] Start: 03-20-2022 Screening for malignant neoplasm of cervix [facility] Start: 02-05-2022 End: 02-05-2022 Patient encounter procedure 02/05/2022 Appointment Physical Therapy Christel Donohue, PT [facility] Start: 02-03-2022 End: 02-03-2022 Patient encounter procedure [facility] Start: 01-30-2022 End: 01-30-2022 Patient encounter procedure [facility] Start: 01-29-2022 End: 01-29-2022 Patient encounter procedure 01/29/2022 Appointment Physical Therapy Beverly Rangel VETERINARY ASSISTANT TECHNICIAN [facility] Start: 01-27-2022 End: 01-27-2022 Patient encounter procedure 01/27/2022 Appointment Physical Therapy Christel Donohue, PT [facility] Start: 01-24-2022 End: 01-24-2022 Patient encounter procedure 01/24/2022 Appointment Physical Therapy Vanessa Garcia, PT [facility] Start: 01-22-2022 End: 01-22-2022 Patient encounter procedure 01/22/2022 Appointment Physical Therapy Beverly Rangel VETERINARY ASSISTANT TECHNICIAN [facility] Start: 01-17-2022 End: 01-17-2022 Patient encounter procedure 01/17/2022 Appointment Physical Therapy Beverly Rangel VETERINARY ASSISTANT TECHNICIAN [facility] Start: 01-10-2022 End: 01-10-2022 Patient encounter procedure 01/10/2022 Appointment Physical Therapy Christel Donohue PT [facility] Start: 01-08-2022 End: 01-08-2022 Patient encounter procedure 01/08/2022 Appointment Physical Therapy Beverly Rangel VETERINARY ASSISTANT TECHNICIAN [facility] Start: 01-02-2022 End: 01-02-2022 Patient encounter procedure 01/02/2022 Appointment Occupational Therapy Judi Marie OTA [address] [place] [address] [facility] Start: 12-31-2021 Diabetes screen Diabetes screen [facility], [place] Start: 12-31-2021 End: 12-31-2021 Patient encounter procedure [facility] Start: 12-30-2021 End: 12-30-2021 Patient encounter procedure 12/30/2021 Appointment Occupational Therapy Lore Herman OT [facility] Start: 12-27-2021 End: 12-27-2021 Patient encounter procedure 12/27/2021 Appointment Occupational Therapy Eve Gaspar OTA [facility] Start: 11-14-2021 End: 11-14-2021 Patient encounter procedure 11/14/2021 Office Visit Felipe Hampton MD [address] [place], [place] [phone] [facility] Start: 10-29-2021 Depression Monitoring Depression Monitoring [employer] Start: 09-16-2021 Creatinine measurement Creatinine monitoring [employer] Phone: Start: 09-16-2021 Potassium monitoring Potassium monitoring [employer] Phone: Start: 08-01-2021 End: 08-01-2021 Patient encounter procedure 08/01/2021 Office Visit Urology Lita Weeks MD [address] [facility], [facility] [address] [place] [address] [employer] [facility] Start: 06-05-2021 Influenza vaccination [employer] Start: 05-25-2021 Creatinine measurement Creatinine monitoring [employer], [place] Start: 05-25-2021 HbA1c (Bld) [Mass fraction] A1C test (Diabetic or Prediabetic) [facility] [place] [place] Start: 05-25-2021 Hemoglobin A1c measurement A1C test (Diabetic or Prediabetic) [employer] Phone: Start: 05-25-2021 Potassium monitoring Potassium monitoring [facility] [place] [place] Start: 11-13-2020 End: 11-13-2020 Office Visit 11/13/2020 Office Visit Felipe Hampton MD [address] [place] [address] [phone] [facility] Start: 11-02-2020 Potassium monitoring Potassium monitoring [employer] [place], [place] Start: 10-23-2020 End: 10-23-2020 Office Visit 10/23/2020 Office Visit Infectious Diseases Dav Hartman MD [address] [facility] [address] [place], [place] [phone] [facility] [employer] Start: 09-24-2020 HbA1c (Bld) [Mass fraction] A1C test (Diabetic or Prediabetic) [place] Start: 06-17-2020 Creatinine measurement Creatinine monitoring [facility] [employer] Start: 06-17-2020 Creatinine monitoring Creatinine monitoring [place], [place] Start: 06-17-2020 Potassium monitoring Potassium monitoring [place], [place] Start: 06-12-2020 End: 06-12-2020 Office Visit 06/12/2020 Office Visit Infectious Diseases Dav Hartman MD [address] [place], [place] [address] [facility] [employer] Start: 06-05-2020 Influenza vaccination Flu vaccine (#1) [place], [place] Start: 03-20-2020 Cervical cancer screen Cervical cancer screen [place], [place] Start: 03-20-2020 Screening for malignant neoplasm of cervix [facility] Start: 11-01-2019 End: 11-01-2019 Office Visit 11/01/2019 Office Visit Infectious Diseases Dav Hartman MD [address] [place], [place] [phone] [facility] Start: 07-28-2019 End: 07-28-2019 Office Visit 07/28/2019 Office Visit Infectious Dav Beaver MD [address] [place], [place] [id number] [facility] Start: 06-27-2019 End: 06-27-2019 Nurse Only 06/27/2019 Nurse Only Family Medicine [facility] Start: 06-05-2019 Influenza vaccination Flu vaccine (#1) [place] Start: 06-05-2019 Influenza vaccination given SEQUENTIAL INFLUENZA VACCINE (Season Ended) [facility] Start: 2019 Screening for malignant neoplasm of breast [facility] Start: 06-05-2018 Influenza vaccination INFLUENZA VACCINE (#1) [facility] Work Phone: Start: 03-23-2018 End: 03-23-2018 Ambulatory [facility] Start: 2009 Screening for malignant neoplasm of cervix HPV (without or with Pap) [facility] Start: 2000 Screening for malignant neoplasm of cervix PAP SMEAR DISCUSSION [facility] Work Phone: Start: 1998 Hepatitis B vaccine (1 of 3 - 19+ 3-dose series) Hepatitis B vaccine (1 of 3 - 19+ 3-dose series) [facility] Start: 1998 Third diphtheria, tetanus and acellular pertussis (DTaP) vaccination TDAP (ADULT) [facility] Work Phone: Start: 1997 Hepatitis C screening Hepatitis C Screening [facility] Start: 1997 Tetanus vaccination TETANUS [facility] Work Phone: Start: 1995 COVID-19 Vaccine (1) COVID-19 Vaccine (1) [facility] Work Phone: Start: 1994 HIV screen HIV screen [place] Start: 1994 HIV screening HIV screen [facility] Start: 1992 HIV screening HIV SCREENING DISCUSSION [facility] Work Phone: Start: 1991 COVID-19 Vaccine (1) COVID-19 Vaccine (1) [facility] Work Phone: Start: 1991 Depression Monitoring Depression Monitoring [facility] Start: 1991 Depression screening using PHQ-9 (Patient Health Questionnaire 9) score [facility] Start: 1989 Urine screening for protein Urine Microalbumin [facility] Start: 1985 Pneumococcal Vaccine: Ped or At-Risk (1 - PCV) Pneumococcal Vaccine: Ped or At-Risk (1 - PCV) [facility] Start: 1984 COVID-19 Vaccine (1) COVID-19 Vaccine (1) [facility] Start: 1982 History and physical examination, annual for health maintenance Wellness Visit [facility] Start: 1979 COVID-19 Vaccine (#1) COVID-19 Vaccine (#1) [facility] Start: 1979 Hepatitis B vaccine (1 of 3 - 3-dose series) Hepatitis B vaccine (1 of 3 - 3-dose series) [facility] Start: 1979 Screening for malignant neoplasm of colon [facility] End: 02-13-2021 COVID-19 COVID-19 Lab Routine Suspected COVID-19 virus infection 1 Occurrences starting 02/13/2021 until 02/13/2021 [employer] Phone: Comment on above: 1 Occurrences starting 02/13/2021 until 02/13/2021 COVID-19 COVID-19 Lab Rou luis Suspected COVID-19 virus infection 02/13/2021 3:06 PM EDT [employer] Phone: End: 08-08-2020 COVID-19 Ambulatory COVID-19 Ambulatory Lab Routine SOB (shortness of breath) 1 Occurrences starting 08/08/2020 until 08/08/2020 [facility] [email or web address] Comment on above: 1 Occurrences starting 08/08/2020 until 08/08/2020 COVID-19 Ambulatory COVID-19 Amb ulatory Lab Routine SOB (shortness of breath) 08/08/2020 4:02 PM [facility] [email or web address] End: 05-20-2021 Creatinine [Mass/volume] in Urine Creatinine, Random Urine Lab Routine Once for 1 Occurrences starting 05/20/2021 until 05/20/2021 [employer] Phone: Comment on above: Once for 1 Occurrences starting 05/20/20 21 until 05/20/2021 Creatinine [Mass/vol ume] in Urine Creatinine, Random Urine Lab Routine 05/20/2021 7:57 PM EDT [employer] Phone: End: 04-13-2021 Culture, Urine Culture, Urine Microbiology Routine Acute cystitis with hematuria 1 Occurrences starting 04/13/2021 until 04/13/2021 [employer] Phone: Comment on above: 1 Occurrences starting 04/13/2021 until 04/13/2021 Culture, Urine [employer] Phone: End: 05-27-2021 Culture, Urine Culture, Urine Microbiology Routine Difficult or painful urination 1 Occurrences starting 05/27/2021 until 05/27/2021 [employer] Phone: Comment on above: 1 Occurrences starting 05/27/2021 until 05/27/2021 End: 06-11-2021 Culture, Urine Culture, Urine Microbiology Routine Acute cystitis with hematuria Recurrent UTI 1 Occurrences starting 06/11/2021 until 06/11/2021 [employer] Phone: Comment on above: 1 Occurrences starting 06/11/2021 until 06/11/2021 End: 07-11-2021 Culture, Urine Culture, Urine Microbiology Routine Frequent UTI Urinary urgency Urinary frequency 1 Occurrences starting 07/11/2021 until 07/11/2021 [employer] Phone: Comment on above: 1 Occurrences starting 07/11/2021 until 07/11/2021 End: 08-01-2021 Culture, Urine Culture, Urine Microbiology Routine Frequent UTI Urinary urgency Urinary frequency 1 Occurrences starting 08/01/2021 until 08/01/2021 [employer] Phone: Comment on above: 1 Occurrences starting 08/01/2021 until 08/01/2021 End: 04-28-2022 Culture, Urine Culture, Urine Microbiology Routine Acute cystitis with hematuria 1 Occurrences starting 04/28/2022 until 04/28/[address]22 [employer] Phone: Comment on above: 1 Occurrences starting 04/28/2022 until 04/28/2022 End: 02-05-2023 Culture, Urine [employer] Phone: Comment on above: 1 Occurrences starting 02/05/2023 until 02/05/2023 End: 04-12-2022 Hemoglobin A1c/Hemoglobin.total in Blood [employer] Phone: Comment on above: 1 Occurrences starting 04/12/2022 until 04/12/2022 End: 02-05-2023 Hemoglobin A1c/Hemoglobin.total in Blood [facility] [employer] Phone: Comment on above: Once for 1 Occurrences starting 02/06/20 until 02/05/2023 End: 08-29-2019 Home Sleep Study Home Sleep Study Sleep Center Routine One Time for 1 Occurrences starting 08/29/2019 until 08/29/2019 [employer] Comment on above: One Time for 1 Occurrences starting 08/06 until 08/29/2019 End: 09-24-2019 Methylmalonic Acid, Serum Methylmalonic Acid, Serum Lab Routine Once for 1 Occurrences starting 09/24/2019 until 09/24/2019 [employer] Phone: Comment on above: Once for 1 Occurrences starting 09/24/20 until 09/24/2019 Methylmalonic Acid, Serum Methyl malonic Acid, Serum Lab Routine 09/24/2019 9:33 AM [employer] Phone: End: 09-24-2019 Nuclear Ab [Titer] in Serum by Immunofluorescence ALICJA Lab Routine Once for 1 Occurrences starting 09/24/2019 until 09/24/2019 [employer] Phone: Comment on above: Once for 1 Occurrences starting 09/24/20 until 09/24/2019 Nuclear Ab [Titer] i n Serum by Immunofluorescence ALICJA Lab Routine 09/24/2019 9:33 AM [employer] Phone: End: 05-20-2021 Protein, urine, random Protein, urine, random Lab Routine Once for 1 Occurrences starting 05/20/2021 until 05/20/2021 [employer] Phone: Comment on above: Once for 1 Occurrences starting 05/20/20 until 05/20/2021 Protein, urine, random Protein, urine, random Lab Routine 05/20/2021 7:57 PM EDT [employer] Phone: End: 12-14-2019 Sedimentation Rate Sedimentation Rate Lab Routine MRSA (methicillin resistant Staphylococcus aureus) septicemia (HCC) 1 Occurrences starting 12/14/2019 until 12/14/2019 [employer] Comment on above: 1 Occurrences starting 12/14/2019 until 12/14/2019 Sedimentation Rate Sedimentation Rate Lab Routine MRSA (methicillin resistant Staphylococcus aureus) septicemia ([facility]) 12/14/2019 12:39 PM [facility]T [facility]: 09-24-2019 Sjogrens syndrome-A extractable nuclear antibody Sjogrens syndrome-A extractable nuclear antibody Lab Routine Once for 1 Occurrences starting 09/24/2019 until 09/24/2019 [employer] Phone: Comment on above: Once for 1 Occurrences starting 09/24/20 until 09/24/2019 Sjogrens syndrome-A extractable nuclear antibody Sjogrens syndrome-A extractable nuclear antibody Lab Routine 09/24/2019 9:33 AM [employer] Phone: End: 09-24-2019 Sjogrens syndrome-B extractable nuclear antibody Sjogrens syndrome-B extractable nuclear antibody Lab Routine Once for 1 Occurrences starting 09/24/2019 until 09/24/2019 [employer] Phone: Comment on above: Once for 1 Occurrences starting 09/24/20 until 09/24/2019 Sjogrens syndrome-B extractable nuclear antibody Sjogrens syndrome-B extractable nuclear antibody Lab Routine 09/24/2019 9:33 AM [employer] Phone: End: 09-12-2019 Sleep Study with PAP Titration Sleep Study with PAP Titration Sleep Center Routine One Time for 1 Occurrences starting 09/12/2019 until 09/12/2019 [employer] Phone: Comment on above: One Time for 1 Occurrences starting 06/2019 until 09/12/2019 End: 09-24-2019 Vitamin B6 Vitamin B6 Lab Routine Once for 1 Occurrences starting 09/24/2019 until 09/24/2019 [employer] Phone: Comment on above: Once for 1 Occurrences starting 09/24/20 until 09/24/2019 Vitamin B6 Vitamin B6 Lab R outine 09/24/2019 9:33 AM [employer] Phone: Immunizations Immunization Date Immunization Notes Care Provider Fa cility 09-08-2014 tetanus toxoid, redu gaby diphtheria toxoid, and acellular pertussis vaccine, adsorbed Felipe Back [facility] [place] [place] Payers Date Payer Category Payer Managed Care HMO (unspecified) [facility] HMO/CHOICE PLUS/DULCE/DULCE PLUS [id number] 2024 Private Health Insurance [facility] [id number] 2024 Private Health Insurance [id number] 2024 Self-pay [id number] [phone] [id number] 2017 Blue Cross Blue Shie ld (Indemnity or Managed Care) - Out of State BCBS OUT OF STATE [facility] [id number] 2017 Unknown 2016 Unknown [id number] 2016 Unknown [id number]. [id number] 2014 Medicaid [id number] [id number] 2014 Medicaid [employer] [facility] MED[place] xxxxxxxxxxx 2014-Present xxxxxxxxxxx [id number] 1979 Unknown [id number] 2.16.840.1.771976.3.579.2.35 6 1979 Unknown [id number] 2.16840.1.460415.3.579.2.35 6 1979 Unknown [id number] 2.16.840.1.220686.3.579.2.71 7 1979 Unknown [id number] 2.16.840.1.778035.3.579.2.71 7 1979 Unknown [id number] 2.16.840.1.762566.3.579.2.17 5 1979 Unknown [id number] 2.16.840.1.121972.3.579.2.90 3 1979 Unknown [id number] 2.16.840.1.010469.3.579.2.18 2 1979 Unknown [id number] 2.16.840.1.932021.3.579.2.18 5 1979 Unknown [id number] 2.16.840.1.480960.3.579.2.90 3 1979 Unknown [id number] 2.16.840.1.384071.3.579.2.59 3 1979 Unknown [id number] 2.16.840.1.749844.3.579.2.59 3 1979 Unknown [id number] 2.16.840.1.143574.3.579.2.59 3 1979 Unknown [id number] 2.16.840.1.742783.3.579.2.90 3 1979 Unknown [id number] 2.16.840.1.457291.3.579.2.17 4 1979 Unknown [id number] 2.16.840.1.678895.3.579.2.17 4 1979 Unknown [id number] 2.16.840.1.615760.3.579.2.17 4 1979 Unknown [id number] 2.16.840.1.212380.3.579.2.17 4 1979 Unknown [id number] 2.16.840.1.460148.3.579.2.17 4 1979 Unknown [id number] 2.16.840.1.110744.3.579.2.17 4 1979 Unknown [id number] 2.16.840.1.450388.3.579.2.17 4 1979 Unknown [id number] 2.16.840.1.053159.3.579.2.12 59 1979 Unknown [id number] 2.16.840.1.005441.3.579.2.12 59 1979 Unknown [id number] 2.16.840.1.274608.3.579.2.12 59 1979 Unknown [id number] 2.16.840.1.583435.3.579.2.12 59 1979 Unknown [id number] 2.16.840.1.229641.3.579.2.90 3 1959 Unknown [id number] 1.2.840.280480.1.13.239.2.7. [id number] Unknown 114 Unknown [id number] 2.16.840.1.354061.3.579.2.53 1 Social History Date Type Detail Facility Start: 05-01-2015 End: 03-06-2023 Tobacco smoking status MEIS Never smoker [facility] Work Phone: Start: 1980 Sex Assigned At Not on file O [facility] Work Phone: Start: 05-27-2019 End: 10-11-2024 Alcohol intake No [place] Start: 12-13-2019 End: 10-11-2024 Alcohol intake Current non-drinker of alcohol (finding) [place] Start: 12-09-2019 End: 05-13-2021 History SDOH Financial 4 [place] Start: 12-09-2019 End: 05-20-2022 History SDOH Food Worry 1 [place], [place] Start: 12-09-2019 History SDOH Transpo rt Med 2 [place] Start: 05-11-2020 End: 03-06-2023 Tobacco use and exposure Never used [place] Start: 10-30-2021 End: 03-02-2023 Exposure to SARS-CoV-2 (event) Not sure [place] Start: 1980 Sex Assigned At Female F [facility] Start: 05-20-2022 History SDOH Financial 3 [facility] Work Phone: Start: 01-06-2023 End: 10-11-2024 History of Social function [facility] How hard is it for y ou to pay for the very basics like food, housing, medical care, and heating Not very hard [employer] Patient Health Questionnaire 9 item (PHQ-9) total score [Reported] 0 [employer] (I/We) worried wheyartiza er (my/our) food would run out before (I/we) got money to buy more. Never true [employer] At any time in the p ast 12 months, were you homeless or living in group home [including now]? No [employer] Start: 10-09-2020 Gender identity Identifies as female gender (finding) [employer] Start: 10-09-2020 Sexual orientation Heterosexual (fin ding) [employer] How hard is it for y ou to pay for the very basics like food, housing, medical care, and heating Somewhat hard [employer] Start: 05-10-2024 End: 06-10-2024 Alcoholic beverage intake Lifetime non-drinker (finding) [facility] Start: 08-19-2023 Alcohol Comment Caffeine Intak e: Yes, pop [facility] NEGATED: Highlighted rowStart: NINF History of tobacco use Passive smoker [employer] Clinical Notes 12-23-2021 to 10-11-2024 Sherman Adair MD - 10/11/2024 10:05 AM Oxana Archibald MA - 10/11/2024 9:38 AM ESTTelephone Encounter - Gwen Fan - 09/14/2024 2:18 PM Konstantin Obando MA - 06/10/2024 10:20 AM EDT Note Date & Type Note Facility 10-11-2024 Note [facility] [address] (11) [facility] [address] MEDICAL OFFICE [facility] [address] Dept: [phone] Loc: [phone] MD Celina Browne 44 y.o. female Patient presents with a chief complaint of New Patient (FNA - THYROID NODULE) Temp 98.3 degrees F (36.8 degrees C) (Temporal) Ht 5' 2 Wt 94.8 kg (209 lb) BMI 38.23 kg/m History of Presenting Illness: The patient/caregiver reports a history of complaint with the following features: She presents for evaluation of a suspicious thyroid nodule. There is no neck mass, pain, voice changes noted. There is no family history of thyroid cancer, radiation exposure. This has been followed by ultrasound and has been stable. Her most recent ultrasound identified with as a TR5 lesion and she is sent for consideration of biopsy. Review of systems covering 10 systems is reviewed and pertinent positives and negatives are noted as above. Past Medical History: Diagnosis Date GERD (gastroesophageal reflux disease) Gout Hyperlipidemia Current Outpatient Medications: b complex vitamins (Vitamins B Complex) capsule, Take 1 (one) capsule by mouth daily ., Disp: , Rfl: baclofen (LIORESAL) 10 MG tablet, TAKE 2 TABLETS BY MOUTH AT BEDTIME FOR 30 DAYS, Disp: , Rfl: calcium carbonate (CALCIUM 500 ORAL), Take by mouth ., Disp: , Rfl: cetirizine (ZYRTEC) 10 MG tablet, Take 1 (one) tablet (10 mg total) by mouth daily ., Disp: , Rfl: cholecalciferol, vitamin D3, (VITAMIN D3) 2,000 unit Tab, Take by mouth., Disp: , Rfl: gemfibrozil (LOPID) 600 MG tablet, Take 1 (one) tablet (600 mg total) by mouth 2 (two) times a day before meals ., Disp: , Rfl: montelukast (SINGULAIR) 10 mg tablet, Take 1 (one) tablet (10 mg total) by mouth nightly ., Disp: , Rfl: pregabalin (LYRICA) 300 MG capsule, Take 1 (one) capsule (300 mg total) by mouth 2 (two) times a day ., Disp: , Rfl: rOPINIRole (REQUIP) 1 MG tablet, Take 1 (one) tablet (1 mg total) by mouth 3 (three) times a day ., Disp: , Rfl: sertraline (ZOLOFT) 100 MG tablet, , Disp: , Rfl: dextroamphetamine-amphetamine (ADDERALL XR) 20 MG 24 hr capsule, , Disp: , Rfl: melatonin 3 mg Tab, Take by mouth nightly. (Patient not taking: Reported on 10/11/2024 .), Disp: , Rfl: Allergies Allergen Reactions Topiramate Other (See Comments) Made her feel overly thirsty and caused bad smell and taste. Chlorhexidine Rash Past Surgical History: Procedure Laterality Date CHOLECYSTECTOMY 10/05/2005 COLONOSCOPY 02/02/2014 FOOT SURGERY Left 02/2024 TONSILLECTOMY 10/05/1984 Social History Socioeconomic History Marital status: Tobacco Use Smoking status: Never Smokeless tobacco: Never Substance and Sexual Activity Alcohol use: No Drug use: Yes Types: Marijuana Social Drivers of Health Financial Resource Strain: Medium Risk (05/08/2024) Received from [facility] Overall Financial Resource Strain (CARDIA) Difficulty of Paying Living Expenses: Somewhat hard Food Insecurity: No Food Insecurity (05/08/2024) Re[facility] from [facility] Hunger Vital Sign Worried About Running Out of Food in the Last Year: Never true Ran Out of Food in the Last Year: Never true Transportation Needs: Unknown (05/08/2024) Received from [facility] PRAPARE - Transportation Lack of Transportation (Non-Medical): No Housing Stability: Unknown (05/08/2024) Received from [facility] Housing Stability Vital Sign Unstable Housing in the Last Year: No Family History Problem Relation Age of Onset Hypertension Mother Hyperlipidemia Mother Diabetes Mother Heart disease Mother Irregular heart beat Mother Stroke Mother Asthma Mother Clotting disorder Mother COPD Mother Obesity Mother [place] disease Mother Cancer Mother lung Hyperlipidemia Father Heart disease Father stent, bypass COPD Father PHYSICAL EXAM: The patient was examined today 10/11/2024 with findings as follows: CONSTITUTIONAL: General Appearance: well-appearing, nontoxic, alert, no acute distress Communication: understanding at normal conversational tones, normal voicing, speech intelligible HEAD/FACE: Head: atraumatic, normocephalic, no lesions Facial Inspection: no lesions, healthy skin Facial Strength: motor strength normal, symmetric strength, symmetric movement Sinuses: no sinus tenderness Salivary Glands: no enlargements of parotid glands, no tenderness of parotid glands, no masses of parotid glands, clear salivary flow on palpation from Stensen's ducts, no duct stones of Stensen's duct, no enlargement of submandibular glands, no tenderness of submandibular glands, no masses of submandibular glands, clear salivary flow from Felipe's ducts, no stones of Traverse's ducts Temporomandibular Joint: no crepitus with motion, no tenderness on palpation, no mayo (more content not included)... [facility] 10-11-2024 History of Present illness Narrative [facility] [address] (11) [facility] MED[facility] OFF[facility] [address] Dept: [phone] Loc: [phone] MD Celina Browen 44 y.o. female Patient presents with a chief complaint of New Patient (FNA - THYROID NODULE) Temp 98.3 F (36.8 C) (Temporal) Ht 5' 2 Wt 94.8 kg (209 lb) BMI 38.23 kg/m History of Presenting Illness: The patient/caregiver reports a history of complaint with the following features: She presents for evaluation of a suspicious thyroid nodule. There is no neck mass, pain, voice changes noted. There is no family history of thyroid cancer, radiation exposure. This has been followed by ultrasound and has been stable. Her most recent ultrasound identified with as a TR5 lesion and she is sent for consideration of biopsy. Review of systems covering 10 systems is reviewed and pertinent positives and negatives are noted as above. Past Medical History: Diagnosis Date GERD (gastroesophageal reflux disease) Gout Hyperlipidemia Current Outpatient Medications: b complex vitamins (Vitamins B Complex) capsule, Take 1 (one) capsule by mouth daily ., Disp: , Rfl: baclofen (LIORESAL) 10 MG tablet, TAKE 2 TABLETS BY MOUTH AT BEDTIME FOR 30 DAYS, Disp: , Rfl: calcium carbonate (CALCIUM 500 ORAL), Take by mouth ., Disp: , Rfl: cetirizine (ZYRTEC) 10 MG tablet, Take 1 (one) tablet (10 mg total) by mouth daily ., Disp: , Rfl: cholecalciferol, vitamin D3, (VITAMIN D3) 2,000 unit Tab, Take by mouth., Disp: , Rfl: gemfibrozil (LOPID) 600 MG tablet, Take 1 (one) tablet (600 mg total) by mouth 2 (two) times a day before meals ., Disp: , Rfl: montelukast (SINGULAIR) 10 mg tablet, Take 1 (one) tablet (10 mg total) by mouth nightly ., Disp: , Rfl: pregabalin (LYRICA) 300 MG capsule, Take 1 (one) capsule (300 mg total) by mouth 2 (two) times a day ., Disp: , Rfl: rOPINIRole (REQUIP) 1 MG tablet, Take 1 (one) tablet (1 mg total) by mouth 3 (three) times a day ., Disp: , Rfl: sertraline (ZOLOFT) 100 MG tablet, , Disp: , Rfl: dextroamphetamine-amphetamine (ADDERALL XR) 20 MG 24 hr capsule, , Disp: , Rfl: melatonin 3 mg Tab, Take by mouth nightly. (Patient not taking: Reported on 10/11/2024 .), Disp: , Rfl: Allergies Allergen Reactions Topiramate Other (See Comments) Made her feel overly thirsty and caused bad smell and taste. Chlorhexidine Rash Past Surgical History: Procedure Laterality Date CHOLECYSTECTOMY 10/05/2005 COLONOSCOPY 02/02/2014 FOOT SURGERY Left 02/2024 TONSILLECTOMY 10/05/1984 Social History Socioeconomic History Marital status: Tobacco Use Smoking status: Never Smokeless tobacco: Never Substance and Sexual Activity Alcohol use: No Drug use: Yes Types: Marijuana Social Drivers of Health Financial Resource Strain: Medium Risk (05/08/2024) Received from [facility] Overall Financial Resource Strain (CARDIA) Difficulty of Paying Living Expenses: Somewhat hard Food Insecurity: No Food Insecurity (05/08/2024) Received from [facility] Hunger Vital Sign Worried About Running Out of Food in the Last Year: Never true Ran Out of Food in the Last Year: Never true Transportation Needs: Unknown (05/08/2024) Received from [facility] PRAPARE - Transportation Lack of Transportation (Non-Medical): No Housing Stability: Unknown (05/08/2024) Received from [facility] Housing Stability Vital Sign Unstable Housing in the Last Year: No Family History Problem Relation Age of Onset Hypertension Mother Hyperlipidemia Mother Diabetes Mother Heart disease Mother Irregular heart beat Mother Stroke Mother Asthma Mother Clotting disorder Mother COPD Mother Obesity Mother [place] disease Mother Cancer Mother lung Hyperlipidemia Father Heart disease Father stent, bypass COPD Father PHYSICAL EXAM: The patient was examined today 10/11/2024 with findings as follows: CONSTITUTIONAL: General Appearance: well-appearing, nontoxic, alert, no acute distress Communication: understanding at normal conversational tones, normal voicing, speech intelligible HEAD/FACE: Head: atraumatic, normocephalic, no lesions Facial Inspection: no lesions, healthy skin Facial Strength: motor strength normal, symmetric strength, symmetric movement Sinuses: no sinus tenderness Salivary Glands: no enlargements of parotid glands, no tenderness of parotid glands, no masses of parotid glands, clear salivary flow on palpation from Stensen's ducts, no duct stones of Stensen's duct, no enlargement of submandibular glands, no tenderness of submandibular glands, no masses of submandibular glands, clear salivary flow from Felipe's ducts, no stones of Traverse's ducts Temporomandibular Joint: no crepitus with motion, no tenderness on palpation, no trismus, motion symmetric EYES: Pupils: PERRLA, extra-ocular movements intact, no nystagmus, sclera white, no redness of eyes, no watering of eyes EARS: Bilateral External Ears: no pits, no tags Right External Ear: normally formed, no lesions, no mastoid tenderness Left External Ear: normally formed, no lesions, no mastoid tenderness Right External Auditory Canal: normal, healthy skin, no obstructing cerumen, no discharge Left External Auditory Canal: normal, healthy skin, no obstructing cerumen, no discharge Right Tympanic Membrane: normal landmarks, translucent, mobile to pneumatic otoscopy, no perforation Left Tympanic Membrane: normal landmarks, translucent, mobile to pneumatic otoscopy, no perforation Hearing: intact to spoken voice NOSE: Nasal Skin: no lesions, no lacerations, no scars Nasal Dorsum: symmetric with no visible or palpable deformities Nasal Tip: normal symmetric nasal tip, normal nasal valves Nasal Mucosa: normal, pink and moist Septum: not markedly deformed, midline, no exposed vessels, no bleeding, no septal granuloma Turbinates: normal size and conformation Nasopharynx: normal ORAL CAVITY/MOUTH: Lips, teeth, gums: normal lips, normal gums, dentition intact, no dental pain on palpation Oral Mucosa: normal, moist, no lesions Palate: normal hard palate, normal soft palate, symmetric palatal elevation Floor of Mouth: normal floor of mouth Tongue: normal tongue, no lesions, no edema, no masses, normal mucosa, mobile Tonsils: normal tonsils, symmetric, no lesions Posterior pharynx: normal NECK: Neck: soft mass right supraclavicular area, no masses, trachea midline, normal range of motion, no cysts or pits, no tenderness to palpation Thyroid: normal thyroid, no enlargement, no tenderness, no nodules LYMPH NODES: Cervical: no palpable lymph node enlargement SKIN: General Appearance: no lesions, warm and dry, normal turgor, no bruising NEUROLOGICAL SYSTEM: Orientation: oriented to time, oriented to place, oriented to person Cranial Nerves: Cranial Nerves II-XII intact, normal facial movement PSYCHIATRIC: Mood and affect: normal mood, normal affect Assessment and Plan: She presents with a TR5 7 mm right thyroid nodule. This has been stable on ultrasound with records reviewed form 2021, 2022, and 2023 with no interval growth. TSH is normal at 1.77. It does exhibit features of taller that wide which is an increased risk factor for malignancy. The small size and absence of growth are reassuring. Indications for biopsy would be size over 10 mm, with some studies suggesting irregular borders and hypoechoic features associated with higher malignancy risk in subcentimeter nodules which are not present in this lesion. As the risk of non-diagnostic biopsy is high with very small lesions, ongoing ultrasound surveillance is suggested at this time. She is to notify me for enlargement, new neck nodes, voice change, or ear pain as signs of abnormality. The right supraclavicular mass is consistent with lipoma and prior ultrasound of this area was also consistent with this etiology. No treatment is indicated for this benign lesion. 1. Thyroid nodule Ambulatory referral to ENT US Soft Tissue Neck 2. Lipoma of neck Return in about 1 year (around 10/11/2025). The patient and/or caregiver is to notify the office if no improvement or worsening of symptoms is noted prior to the scheduled follow-up for sooner evaluation. The patient and/or caregiver is able to state an understanding of these recommendations and is agreeable to the treatment plan. --Sherman Adair MD on 10/11/2024 at 10:20 AM An electronic signature was used to authenticate this note. Review of Systems Constitutional: Negative. HENT: Positive for congestion, ear pain, postnasal drip, sinus pressure, sinus pain, tinnitus and trouble swallowing. Eyes: Positive for visual disturbance. Respiratory: Positive for choking. Cardiovascular: Negative. Gastrointestinal: Negative. Endocrine: Negative. Genitourinary: Negative. Musculoskeletal: Negative. Skin: Negative. Allergic/Immunologic: Positive for environmental allergies. Neurological: Positive for dizziness, light-headedness and headaches. Hematological: Negative. Psychiatric/Behavioral: Negative. documented in this encounter [facility] 09-14-2024 Telephone encounter Note Voicemail Received: Our numbers [phone] actually have a question regarding a prescription that was prescribed today, If someone could please call me back. Thank you. Bye. [facility] 09-14-2024 Miscellaneous Notes Voicemail Received: Our numbers [phone] actually have a question regarding a prescription that was prescribed today, If someone could please call me back. Thank you. Bye. documented in this encounter [facility] 08-11-2024 Miscellaneous Notes Patient called and requested refill of Lyrica to be sent to [facility] in [place]. documented in this encounter [facility] 08-11-2024 Telephone encounter Note Patient called and requested refill of Lyrica to be sent to [facility] in [place]. [facility] 06-10-2024 History of Present illness Narrative Images from the original note were not included. CHIEF COMPLAINT REASON FOR VISIT: neuropathy, sleep HPI: Celina Gaspar is a 44 y.o. female who presents for a follow up. 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 She still has boot on. She did see Dr. Miles for sleep consultation. She did get replacement cpap machine. But has not got her sleep mask yet. She states she has called but has not heard anything about it. She states she has not used the machine yet. She wants to be switched back to [place]. She thinks her PCP sent it to Dr. Miles by mistake since she seen her before. She states she still is having neuropathy symptoms since the surgery. She states it has increased. She states she has been burning her hand when she is cooking on accident because she does not even feel it. She states she does get some vertigo episodes. Denies any other concerns. CURRENT MEDICATIONS: ALLERGIES/DISCONTINUE MEDICATIONS Current Outpatient Medications Medication Instructions b complex vitamins capsule 1 capsule, Oral, Daily RT baclofen (Lioresal) 10 MG tablet TAKE 2 TABLETS BY MOUTH AT BEDTIME FOR 30 DAYS biotin 10 MG tablet Every 24 hours calcium 500 MG tablet 1 tablet, Oral, 2 times daily cetirizine (ZYRTEC) 10 mg, Oral, Daily RT cholecalciferol (Vitamin D-3) 50 MCG (1999) tablet Oral diclofenac sodium 1 % gel famotidine (PEPCID) 20 mg, Oral, 2 times daily fluticasone (Flonase) 50 MCG/ACT nasal spray 2 sprays, Each Nostril, Daily gemfibrozil (Lopid) 600 MG tablet TAKE 1 TABLET TWICE A DAY 30 MINUTES BEFORE BREAKFAST AND SUPPER hydrOXYzine pamoate (VISTARIL) 50 mg, Oral, Nightly PRN lisdexamfetamine (VYVANSE) 50 mg, Oral, Every morning montelukast (SINGULAIR) 10 mg, Oral, Nightly nortriptyline (PAMELOR) 25 mg, Oral, Nightly Nurtec 75 mg, Oral, See admin instructions, Take 1- 75mg tablet by mouth as needed at the onset of migraine. pregabalin (LYRICA) 300 mg, Oral, 2 times daily rOPINIRole (REQUIP) 0.5 mg, Oral, 3 times daily sertraline (Zoloft) 100 MG tablet thiamine (VITAMIN B-1) 100 mg, Oral, Daily topiramate 50 MG tablet Allergies Allergen Reactions Topamax [Topiramate] Made her feel overly thirsty and caused bad smell and taste. Chlorhexidine Rash Medications Discontinued During This Encounter Medication Reason cephalexin (Keflex) 250 MG capsule Therapy completed PAST MEDICAL HISTORY: SURGICAL/SOCIAL/FAMILY HISTORY DEPRESSION SCREEN: Past Medical History: Diagnosis Date Back pain Bilateral carpal tunnel syndrome Borderline diabetes Carpal tunnel syndrome Cervical disc displacement Cervical radiculopathy Chronic kidney disease, stage 3 unspecified (HCC) (CMS/HCC) Degenerative disc disease, lumbar Degenerative joint disease of low back Depression (CMS/HCC) GERD (gastroesophageal reflux disease) Gout Hereditary and idiopathic neuropathy, unspecified Idiopathic progressive neuropathy Intractable chronic migraine without aura with status migrainosus (CMS/HCC) Lumbar radiculopathy Lumbosacral spondylosis without myelopathy MRSA infection Muscle spasm Myalgia Neuropathy Numbness BUCK (obstructive sleep apnea) Polyneuropathy associated with underlying disease (CMS/HCC) Primary insomnia Protrusion of cervical intervertebral disc Radiculopathy Restless leg syndrome Spondylosis Tarsal tunnel syndrome of both lower extremities Vitamin B deficiency Vitamin D deficiency Past Surgical History: Procedure Laterality Date CARPAL TUNNEL RELEASE Bilateral once on left, twice on right CHOLECYSTECTOMY 2007 GALLBLADDER SURGERY HYSTERECTOMY TONSILLECTOMY 1985 Social History Tobacco Use Smoking status: Never Smokeless tobacco: Never Substance Use Topics Alcohol use: Never Comment: Caffeine Intake: Yes, pop Drug use: Never Family History Problem Relation Name Age of Onset Hypertension Mother Diabetes Mother Lung disease Mother Lung cancer Mother Stroke Mother Heart disease Mother Hypertension Father Heart attack Father Other (Other) Son Syringomyelia Diabetes Maternal Grandmother Hypertension Maternal Grandmother Heart disease Maternal Grandmother Diabetes Maternal Grandfather Hypertension Maternal Grandfather Heart disease Maternal Grandfather Heart disease Paternal Grandmother Heart disease Paternal Grandfather Depression: At risk (01/28/2024) Received from [facility] PHQ-2 PHQ-9 Total Score: 6 REVIEW OF SYMPTOMS: Review of Systems Constitutional: Negative for chills, diaphoresis, fatigue and fever. HENT: Negative for ear pain, tinnitus and trouble swallowing. Eyes: Negative for photophobia and visual disturbance. Respiratory: Negative for cough and shortness of breath. Cardiovascular: Negative for palpitations and leg swelling. Gastrointestinal: Negative for abdominal pain and nausea. Genitourinary: Negative for difficulty urinating and urgency. Musculoskeletal: Negative for arthralgias, back pain, myalgias, neck pain and neck stiffness. Neurological: Positive for numbness. Negative for tremors, weakness and light-headedness. Psychiatric/Behavioral: Negative for agitation, confusion and suicidal ideas. OBJECTIVE: 06/10/2024 10:09 AM 05/10/2024 2:20 PM 10/29/2023 11:39 AM Vitals BMI 38.96 kg/m2 38.41 kg/m2 37.97 kg/m2 BSA (m2) 2.06 m2 2.04 m2 2.03 m2 Systolic 132 118 125 Diastolic 84 74 80 Heart Rate 83 78 SpO2 97 % Height (in) 5' 2 5' 2 Weight (lb) 213 210 207.6 Visit Report Report Report EXAM: Neurological Exam Mental Status Awake, alert and oriented to person, place and time. Oriented to person, place and time. Recent and remote memory are intact. Speech is normal. Language is fluent with no aphasia. Attention and concentration are normal. Cranial Nerves CN II: Visual acuity is normal. Visual bueno full to confrontation. CN III, IV, : Extraocular movements intact bilaterally. Normal lids and orbits bilaterally. Pupils equal round and reactive to light bilaterally. CN V: Facial sensation is normal. CN VII: Full and symmetric facial movement. CN VIII: Hearing is normal. CN XII: Tongue midline without atrophy or fasciculations. Motor Normal muscle bulk throughout. Normal muscle tone. Right Left Wrist flexion 5 5 Wrist extension 5 5 Right Left Deltoid 5 5 Biceps 5 5 Triceps 5 5 Wrist flexor 5 5 Wrist extensor 5 5 Glutei 5 5 Iliopsoas 5 5 Quadriceps 5 5 Gastrocnemius 5 5 Anterior tibialis 5 5 Posterior tibialis 5 5 Sensory Light touch is normal in upper and lower extremities. Pinprick is normal in upper and lower extremities. Vibration is normal in upper and lower extremities. Reflexes Right Left Brachioradialis 2+ 2+ Biceps 2+ 2+ Patellar 2+ 2+ Achilles 2+ 2+ Right Plantar: downgoing Left Plantar: downgoing Right pathological reflexes: Goyo's absent. Ankle clonus absent. Left pathological reflexes: Goyo's absent. Ankle clonus absent. Coordination [id number], rapid alternating movements and [id number] normal bilaterally without dysmetria. Gait Normal casual, toe, heel and tandem gait. Romberg is absent. PROCEDURE: NONE ASSESSMENT AND PLAN: Diagnoses and all orders for this visit: Idiopathic progressive polyneuropathy Bilateral carpal tunnel syndrome Restless legs Intractable 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 (CMS/HCC) Increase nortriptyline (Pamelor) 25 MG capsule; Take two capsules by mouth at bedtime. Total of 50 mg. Follow up 3 months. documented in this encounter [facility] 05-10-2024 History of Present illness Narrative Images from the original note were not included. Chief Complaint Patient presents with Sleep Apnea Subjective Celina Gaspar, 44 y.o., female Sleep ND 43 year old female being seen in Sleep consultation at the request of Dr. Mitchel Casas for her BUCK. She has a previous diagnosis of BUCK and was using it for a while. She had a recalled machine and was having issues replacing her machine. She was using [employer] and had trouble getting a hold of them. She does have events at night in which she stops breathing. She had a time that her throat closed and she could not talk or get it open for a short time. She has daytime hypersomnia. She does snore. The patient is here to be seen for sleep apnea. She has a cpap machine. She tolerates the machine but is having issues with the cannulas that go into her nose. It comes out of her nose frequently. She has the download with her today. She states since starting the machine she yawns frequently and would like to know if this is normal. Patient Symptoms Snores: YEs Wakes gasping for breath: yes Dozes off if inactive: Sometimes Dozes off with activity: No Wakes a lot through the night: No Witnessed episodes of apnea: No Is sleep restful or restorative: No Bedtime: 12am Is it hard or easy to fall asleep: Easy Takes naps: No Feels better after napping: Yes Sleepwalk: No Sleeptalk: No Vivid Dreams: No Acts out dreams: Yes Sleep related hallucinations: She is unsure Sleep paralysis: No Cataplexy: No Restless Leg: Yes Kicking/Jerking at night: Yes TV on while sleeping: No Smoke before bed: Nonsmoker Caffeine within 3 hours before bed: No She goes to bed around 11:30- 12 am She gets up around 8-9am. She does take the pamelor 25mg at bedtime. She is on Baclofen 2 at bedtime. She does not take it during the day. She has neuropathy, migraines, RLS Past Medical History: Diagnosis Date Back pain Bilateral carpal tunnel syndrome Borderline diabetes Carpal tunnel syndrome Cervical disc displacement Cervical radiculopathy Chronic kidney disease, stage 3 unspecified (HCC) (CMS/HCC) Degenerative disc disease, lumbar Degenerative joint disease of low back Depression (CMS/HCC) GERD (gastroesophageal reflux disease) Gout Hereditary and idiopathic neuropathy, unspecified Idiopathic progressive neuropathy Intractable chronic migraine without aura with status migrainosus (CMS/HCC) Lumbar radiculopathy Lumbosacral spondylosis without myelopathy MRSA infection Muscle spasm Myalgia Neuropathy Numbness BUCK (obstructive sleep apnea) Polyneuropathy associated with underlying disease (CMS/HCC) Primary insomnia Protrusion of cervical intervertebral disc Radiculopathy Restless leg syndrome Spondylosis Tarsal tunnel syndrome of both lower extremities Vitamin B deficiency Vitamin D deficiency Past Surgical History: Procedure Laterality Date CARPAL TUNNEL RELEASE Bilateral once on left, twice on right CHOLECYSTECTOMY 2007 GALLBLADDER SURGERY HYSTERECTOMY TONSILLECTOMY 1985 Family History Problem Relation Name Age of Onset Hypertension Mother Diabetes Mother Lung disease Mother Lung cancer Mother Stroke Mother Heart disease Mother Hypertension Father Heart attack Father Other (Other) Son Syringomyelia Diabetes Maternal Grandmother Hypertension Maternal Grandmother Heart disease Maternal Grandmother Diabetes Maternal Grandfather Hypertension Maternal Grandfather Heart disease Maternal Grandfather Heart disease Paternal Grandmother Heart disease Paternal Grandfather Social History Tobacco Use Smoking status: Never Smokeless tobacco: Never Substance Use Topics Alcohol use: Never Comment: Caffeine Intake: Yes, pop Allergies: Topamax [topiramate] and Chlorhexidine General: No fever or chills HEENT: No nasal congestion or runny nose Pulmonary: No shortness of breath or cough Cardiovascular: No chest pain or palpitations GI: No nausea or vomiting : No dysuria or hematuria Musculoskeletal: No new aches or pains or muscle weakness Infectious: no recurrent fevers or infections Dermatologic: No rashes or skin lesions Neurologic: No new headaches or dizziness Vitals: 05/10/24 1420 BP: 118/74 Pulse: 83 SpO2: 97% Body mass index is 38.41 kg/m . weight: 210 lb Neurologic exam: General: obesity, cooperative, pleasant Mallampati of 3+ with narrow oropharyngeal opening some mild macroglossia Mental status: Awake, alert to person, place and time. Recent and remote memory are intact. Attention and concentration are normal. Fund of knowledge is appropriate for level of education. HEENT: NC/AT Cranial nerves: CN II: Visual bueno full to confrontation. No loss of vision CN III, IV, : pupils equal round and reactive to light. Extraocular movements intact. No ptosis present. CN V: Facial sensation is normal. CN VII: Full and symmetric facial movement. CN VIII: Hearing is normal CN IX and X: Palate elevates symmetrically. CN XI: Shoulder shrug is normal bilaterally. CN XII: Tongue is midline without atrophy or fasciculation. Speech: Clear and fluent no aphasia or dysarthria Pronator drift: Negative bilateral upper extremity Coordination: Intact, no signs of dysmetria Good finger to nose and rapid alternating movements Sensory: Sensation is intact to light, temperature and vibratory touch throughout four extremities. Pinprick intact in all four extremities. Motor: LUE 5/5 RUE 5/5 LLE 5/5 RLE 5/5 Tone: Physiologic, no tremor, bradykinesia or rigidity DTR: Bilateral Biceps 2/4 Bilateral BR 2/4 Bilateral Patellar 2/4 No spasticity Gait: Normal to casual gait Romberg's Negative Review and summary of old records: Assessment/Plan Diagnoses and all orders for this visit: BUCK (obstructive sleep apnea) Hypersomnia Snoring Class 2 obesity due to excess calories with body mass index (BMI) of 38.0 to 38.9 in adult, unspecified whether serious comorbidity present 44-year-old female with an obstructive sleep apnea leading to daytime hypersomnolence and snoring. She previously had obstructive sleep apnea but had recalled machine and was not using it like she should. She got repeat tested in order to get back on treatment. We are trying to track down the results of those studies. She does feel better and benefit from the machine however she is having difficulty with the insert portion that goes into her nares and would like to try a different mask. She may benefit from more of a DreamWear type of mask that does not have the inserts. We do also need to get her compliance download. Obesity would benefit from aggressive weight loss measures. Plan Previous chart was reviewed We are attempting to get her polysomnogram and titration study Tempting to get her compliance data She can try a DreamWear mask and see if that works better for her The patient was counseled on the need for aggressive diet, exercise, and weight loss. The patient was counseled on proper sleep hygiene and adequate hours of sleep. The patient was counseled on the risks of stroke, SC, and sudden with BUCK, along with the need for compliance with the CPAP/BiPAP treatment. The diagnosis was all discussed with the patient. All questions were answered and they agreed with the treatment plan. Patient will call if there are any new issues or questions. Pt has been fully educated on their diagnosis, treatment options, follow up plan, and return instructions Return to clinic: 3-6 months documented in this encounter [facility] 03-03-2023 History of Present illness Narrative Images [...] She follows with an outside provider in [place] and was immobilized for an extended period [...] & Ankle Surgery documented in this encounter [facility] 01-29-2023 Note PROCEDURE: XR ANKLE LT MIN [...] authenticated by: PIPER MERCEDES Date: 2023-01-29 07:05 [facility] 01-29-2023 Note PROCEDURE: XR ANKLE LT [...] authenticated by: PIPER MERCEDES Date: 2023-01-29 07:05 [facility] 07-09-2022 History of Present illness Narrative [...] BMR: 1573 calories Est. total calorie needs: ~9890-6995 Lab Results Component Value Date/Time TRIG 460 [...] bread Supper: pork chop or chicken, homemade solomon islander fries, mashed, or baked potato with broccoli [...] minutes. documented in this encounter [facility] Phone: 02-05-2022 History of Present illness Narrative [facility] Date: 02/05/2022 Patient Name: Celina Gaspar : 1980 Pt No Showed Appt- Follow up call, left message on voicemail that patient discharged, but to call if has questions or concerns. Christel Donohue, PT Date: 02/05/2022 documented in this encounter [employer] Phone: 02-05-2022 Hospital course Narrative Images from the original note were not included. [facility] Discharge Summary Patient: [...] PT Date: 02/05/2022 documented in this encounter [employer] Phone: 02-03-2022 History of Present illness Narrative [facility] Date: 02/03/2022 Patient Name: Celina Gaspar : 1980 Pt Cancelled Appt due to no reason for cancel. Jerica Melgar Date: 02/03/2022 documented in this encounter [employer] Phone: 01-29-2022 History of Present illness Narrative Images from the original note were not included. 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 [employer] Goals - Time Frame for custodial goals : 10 Jail Goals Time Frame for long term care social worker goals : 10 long term care social worker goal 1: Decrease pain low back 2/10 at worst x3 days for completing normal activities custodial goal 2: Patient to report 50% decrease in radicular symptoms L LE Post Treatment Pain: 5/10 Time In: 0859 Time Out: 0947 Timed Code Treatment Minutes: 48 Minutes Total Treatment Time: 48 Minutes Beverly Rangel, VETERINARY ASSISTANT TECHNICIAN Date: 01/29/2022 documented in this encounter [email or web address] Phone: 01-27-2022 History of Present illness Narrative Images from the original note were not included. [facility] Daily Note Date: 01/27/2022 Patient Name: Celina Gaspar : 1980 (41 y.o.) Referring Practitioner: Liliane Sawyer APRN, [employer] Referral Date : 12/19/21 Diagnosis: Lumbar radiculopathy [...] Increase trunk ROM B rotation WFL-Not Met [employer] Goals - Time Frame for long term care social worker goals : 10 [employer] Goals Time Frame for custodial goals : 10 long term care social worker goal 1: Decrease pain low back 2/10 at worst x3 days for completing normal activities long term care social worker goal 2: Patient to report 50% decrease in radicular symptoms L LE Post Treatment Pain: 4/10 Time In: 15:50 Time Out : 16:19 Timed Code Treatment Minutes: 34 Minutes Total Treatment Time: 34 Minutes Christel Donohue, PT Date: 01/27/2022 documented in this encounter [employer] Phone: 01-24-2022 History of Present illness Narrative Images from the original note were not included. 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 Goals Time Frame for long term care social worker goals : 10 custodial goal 1: Decrease pain low back 2/10 at worst x3 days for completing normal activities long term care social worker goal 2: Patient to report 50% decrease in radicular symptoms L LE Post Treatment Pain: 5/10 Time In: 0952 Time Out: 1030 Timed Code Treatment Minutes: 38 Minutes Total Treatment Time: 38 Minutes Vanessa Garcia, PT Date: 01/24/2022 documented in this encounter [employer] Phone: 01-22-2022 History of Present illness Narrative [facility] Date: 01/22/2022 Patient Name: Celina Gaspar : 1980 Patient did not show up for her appointment. Message left on answering machine with a reminder of her next appointment on Thursday. Beverly Rangel, VETERINARY ASSISTANT TECHNICIAN Date: 01/22/2022 documented in this encounter [employer] Phone: 01-17-2022 History of Present illness Narrative Images from the original note were not included. [facility] Outpatient Physical Therapy Daily Note Date: [...] 5/10 Assessment Assessment: Patient arrives with pain /10. 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 Goals - Time Frame for custodial goals : 10 custodial goal 1: Decrease pain low back 2/10 at worst x3 days for completing normal activities custodial goal 2: Patient to report 50% decrease in radicular symptoms L LE Post Treatment Pain: 5/10 Time In: 1037 Time Out: 1107 Timed Code Treatment Minutes: 30 Minutes Total Treatment Time: 30 Minutes Beverly Rangel, JENNIFER Date: 01/17/2022 [facility] 01-13-[facility]22 History of Present illness Narrative [facility] Date: 01/13/2022 Patient Name: Celina Gaspar : 1980 Pt Cancelled Appt due to no reason given. NABILA Metzger Date: 01/13/2022 documented in this encounter [employer] Phone: 01-03-2022 History of Present illness Narrative Images from the original note were not included. 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 [facility] Outpatient Occupational Therapy Daily Note Date: [...] Time Frame for Short term goals: STG=LTG Jail Goals Time Frame for long term care social worker goals : 12 visits (01/24/2022) custodial goal 1: pt to be indepenent in HEP-MET long term care social worker goal 2: Pt to demonstrate R wrist flexion to 65 degrees or more in order to engage in daily tasks-MET long term care social worker goal 3: Pt to demonstrate R wrist extension to 60 degrees or more in order to engage in daily tasks-MET long term care social worker goal 4: Pt to be educated on carpal tunnel do's & dont's in order to prevent further repetitive injury to wrist-MET Timed Code Treatment Minutes: 30 Minutes Time In: 915 Time Out: 945 Timed Coded Minutes: 30 Total Treatment Time: 30 THERESA Houser, OTR/L Date: 12/31/2021 documented in this encounter [employer] Phone: 12-31-2021 Hospital course Narrative Images from the original note were not included. 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 Therapist provided pt with handout on Carpal Tunnel Dos & Dont's to avoid re-injury. Prognosis: Fair Goals Short Term Goals Time Frame for Short term goals: STG=LTG Jail Goals Time Frame for long term care social worker goals : 12 visits (01/24/2022) long term care social worker goal 1: pt to be indepenent in HEP-MET long term care social worker goal 2: Pt to demonstrate R wrist flexion to 65 degrees or more in order to engage in daily tasks-MET long term care social worker goal 3: Pt to demonstrate R wrist extension to 60 degrees or more in order to engage in daily tasks-MET long term care social worker goal 4: Pt to be educated on carpal tunnel do's & dont's in order to prevent further repetitive injury to wrist-MET Reason for Discharge [] Poor Follow Through [] Completion of Prescribed Sessions [x] Optimal Function Achieved [] Patient Discharged Self [x] Goals Achieved Comments: Thank you for this referral THERESA Houser, OTR/L Date: 12/31/2021 documented in this encounter [employer] Phone: 12-31-2021 History of Present illness Narrative Images from the original note were not included. [facility] Therapy Evaluation Date: 12/31/2021 Patient: Celina Gaspar : 1980 Referring Practitioner: Liliane Sawyer APRN, [employer] Referral Date : 12/19/21 Diagnosis: Lumbar radiculopathy Treatment Diagnosis: Back Pain Onset Date: 12/19/21 (Referral) PT Insurance Information: [facility] Total # of Visits Approved: 10 [...] 4: Increase trunk ROM B rotation WFL long term care social worker goals Time Frame for long term care social worker goals : 10 custodial goal 1: Decrease pain low back 2/10 at worst x3 days for completing normal activities custodial goal 2: Patient to report 50% decrease in radicular symptoms L LE Patient's Goal: Decrease back pain to complete normal activities Timed Code Treatment Minutes: 15 Minutes Total Treatment Time: 45 Time In: 8:30 Time Out: 9:15 Christel Donohue PT Date: 12/31/2021 [facility]: 12-30-2021 History of Present illness Narrative Images from the original note were not included. 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 Goals Time Frame for custodial goals : 12 visits (01/24/2022) custodial goal 1: pt to be indepenent in HEP-MET custodial goal 2: Pt to demonstrate R wrist flexion to 65 degrees or more in order to engage in daily tasks-MET long term care social worker goal 3: Pt to demonstrate R wrist extension to 60 degrees or more in order to engage in daily tasks-MET long term care social worker goal 4: Pt to be educated on carpal tunnel do's & dont's in order to prevent further repetitive injury to wrist-MET Time In: 835 Time Out: 915 Timed Coded Minutes: 40 Total Treatment Time: 40 THERESA Houser, OTR/L Date: 12/30/2021 [facility]: 12-23-2021 History of Present illness Narrative Images from the original note were not included. [facility] Out[facility] Occupational Therapy Evaluation Date: 12/23/2021 [...] completing these mvmts Left Hand Strength - Assigner (lbs) Handle Setting 2: 54#, 50#, 53# (52.3# ave) Left Hand Strength - Pinch (lbs) Lateral: 13.5# Tip: 8# Palmar 3 point: 11# Right Hand Strength - Assigner (lbs) Handle Setting 2: 53#, 54#, 53# [...] Time Frame for Short term goals: STG=LTG long term care social worker goals Time Frame for custodial goals : 12 visits (01/24/2022) long term care social worker goal 1: pt to be indepenent in HEP long term care social worker goal 2: Pt to demonstrate R wrist flexion to 65 degrees or more in order to engage in daily tasks long term care social worker goal 3: Pt to demonstrate R wrist extension to 60 degrees or more in order to engage in daily tasks long term care social worker goal 4: Pt to be educated on carpal tunnel do's & dont's in order to prevent further repetitive injury to wrist Patient's Goal: pt wishes to return to prior function Time In: 830 Time Out: 924 Timed Coded Minutes: 0 Total Treatment Time: 54 THERSEA Houser, OTR/L 12/23/2021 documented in this encounter [employer] Phone: Evaluation note Diagnosis Viral illness Unspecified viral infection, in conditions classified elsewhere and of unspecified site documented in this encounter [employer] Phone: evaluation note* Diagnosis Suspected COVID-19 virus infection documented in this encounter [employer] Phone: evaluation note* Diagnosis Acute cystitis with hematuria Acute cystitis documented in this encounter [employer] Phone: evaluation note* Diagnosis Difficult or painful urination Dysuria documented in this encounter [employer] Phone: evaluation note* Diagnosis Acute cystitis with hematuria Acute cystitis Recurrent UTI Urinary tract infection, site not specified documented in this encounter [employer] Phone: evaluation note* Diagnosis Frequent UTI Urinary tract infection, site not specified Urinary urgency Urgency of urination Urinary frequency documented in this encounter [employer] Phone: evaluation note* Diagnosis Frequent UTI Urinary tract infection, site not specified Urinary urgency Urgency of urination Urinary frequency documented in this encounter [employer] Phone: evaluation note* Diagnosis MRSA (methicillin resistant Staphylococcus aureus) septicemia (HCC) Methicillin resistant staphylococcus aureus septicemia [facility] noteNo assessment information availableAden[facility] Work Phone: Evaluation note* Diagnosis Fatigue, unspecified type Encounter for screening for HIV Mixed hyperlipidemia Hyperglycemia Other abnormal glucose Chronic renal impairment, stage 3b (HCC) documented in this encounter [facility] [employer] Phone: evaluation note* Diagnosis Acute cystitis with hematuria Acute cystitis documented in this encounter [employer] Phone: evalnwkpfm note* Diagnosis Neck mass Swelling, mass, or lump in head and neck documented in this encounter [facility] [employer] Phone: evaluation note* Diagnosis Pain of foot, unspecified laterality Closed nondisplaced fracture of second metatarsal bone of left foot, initial encounter Closed nondisplaced fracture of lateral cuneiform of left foot, initial encounter documented in this encounter [employer] Phone: evaluation note* Diagnosis Foreign body (FB) in soft tissue Residual foreign body in soft tissue documented in this encounter [employer] Phone: evaluation note* Diagnosis Pelvic pressure in female Other specified symptom associated with female genital organs documented in this encounter [facility] [employer] Phone: evaluation note* Diagnosis Charcot arthropathy of midfoot- Primary Gastrocnemius equinus, unspecified laterality Foot pain, left Pain in soft tissues of limb [facility] Diagnosis Mixed hyperlipidemia documented in this encounter [facility] [employer] [facility]* Diagnosis Idiopathic progressive polyneuropathy Non-seasonal allergic rhinitis due to pollen [facility] Thyroid nodule Nontoxic uninodular goiter [facility]* Diagnosis Thyroid nodule- Primary Nontoxic uninodular goiter [facility] Diagnosis BUCK on CPAP- Primary 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 (CMS/HCC) Restless legs Restless legs syndrome (RLS) Bilateral carpal tunnel syndrome Carpal tunnel syndrome documented [facility]* Diagnosis Idiopathic progressive polyneuropathy- Primary Bilateral carpal tunnel syndrome Carpal tunnel syndrome Restless legs Restless legs syndrome (RLS) Intractable 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 (CMS/HCC) documented in this encounter [facility]* Diagnosis BUCK (obstructive sleep apnea) Obstructive sleep apnea (adult) (pediatric) Hypersomnia Hypersomnia, unspecified Snoring Other dyspnea and respiratory abnormality Class 2 obesity due to excess calories with body mass index (BMI) of 38.0 to 38.9 in adult, unspecified whether serious comorbidity present documented in this encounter [facility]* Diagnosis Idiopathic progressive polyneuropathy Non-seasonal allergic rhinitis due to pollen documented in this encounter [facility]* Diagnosis Thyroid nodule- Primary Nontoxic uninodular goiter Lipoma of neck documented in this encounter [facility] Purpose Family History No Family History [...] FoundDocuments on File Type Date Recorded Patient Disability Advocate Expl anation Advance Directives and Living Will Power of Automotive Electrician Helper Latest Code Status on File Code Status Date Activated Date Inactivated Comments Full Code 08/15/2018 4:17 PM 08/25/2018 8:55 PM Full Code 03/19/2017 1:37 PM 03/19/2017 4:32 PM Full Code 03/19/2017 10:57 AM 03/19/2017 1:37 PM Full Code 03/05/2017 12:56 PM 03/05/2017 3:55 PM Full Code 03/05/2017 10:05 AM 03/05/2017 12:56 PM Documents on File Type Date Recorded Patient Disability Advocate Expl anation ACP-Advance Directive ACP-Power of Automotive Electrician Helper Documents on File Type Date Recorded Patient Disability Advocate Expl anation ACP-Advance Directive ACP-Power of Automotive Electrician Helper Latest Code Status on File Code Status [...] Code 03/05/2017 10:05 AM 03/05/2017 12:56 PM Date Activated Date Inactivated Comments 08/15/2018 4:17 PM 08/25/2018 8:55 PM Date Activated Date Inactivated Comments 03/19/2017 1:37 PM 03/19/2017 4:32 PM Date Activated Date Inactivated Comments 03/19/2017 10:57 AM 03/19/2017 1:37 PM Date Activated Date Inactivated Comments 03/05/2017 12:56 PM 03/05/2017 3:55 PM Date Activated Date Inactivated Comments 03/05/2017 10:05 AM 03/05/2017 12:56 PM Assessments [...] Everywhere. * Back Care Basics: General Info (Icelandic) * Back: Preventing Injuries (Icelandic) documented in this encounter Reason for Referral Status Reason Specialty Diagnoses / Procedures Referre d By Contact Referred To Contact Closed Radiology Diagnoses Brachial neuritis Peripheral nerve disorder Spasm of muscle Procedures MR Cervical Spine Without Contrast Tiffanie Casas MD [address] [id number] Specialty Diagnoses / Procedures Referred By Contac t Referred To Contact Radiology Diagnoses Neck mass Procedures US HEAD NECK SOFT TISSUE THYROID Felipe Adam MD [address] [place] [address] Referral ID Status Reason Start Date Expiration Date Visits Re quested Visits Authorized [id number] Closed 05/27/2022 05/27/2023 1 1 Specialty Diagnoses / Procedures Referred By Contac t Referred To Contact Radiology Diagnoses Thyroid nodule Procedures US THYROID Back, MD Felipe [address] [place] [address] Referral ID Status Reason Start Date Expiration Date V isits Requested Visits Authorized [id number] Pending Review 09/06/2024 08/26/2025 1 1 Chief Complaint and Reason for Visit Chief Complaint M54.16 M79.10 M79.60 9 R20.9 Chief Complaint Unknown Additional Source Comments INFORMATION SOURCE (unrecogn ized section and content) DATE CREATED AUTHOR 03/30/2018 [facility] DATE CREATED AUTHOR AUTHOR'S ORGANIZ ATION 03/30/2018 [facility] DATE CREATED AUTHOR AUTHOR'S ORGANIZ ATION 09/15/2018 [facility] DATE CREATED AUTHOR AUTHOR'S ORGANIZ ATION 09/23/2018 [facility] DATE CREATED AUTHOR AUTHOR'S ORGANIZ ATION 09/26/2018 [facility] DATE CREATED AUTHOR AUTHOR'S ORGANIZ ATION 12/10/2018 [facility] DATE CREATED AUTHOR AUTHOR'S ORGANIZ ATION 12/18/2018 [facility] DATE CREATED AUTHOR AUTHOR'S ORGANIZ ATION 02/11/2019 [facility] DATE CREATED AUTHOR AUTHOR'S ORGANIZ ATION 11/30/2021 [facility] DATE CREATED AUTHOR AUTHOR'S ORGANIZ ATION 05/01/2022 [facility] DATE CREATED AUTHOR AUTHOR'S ORGANIZ ATION 08/22/2022 [facility] DATE CREATED AUTHOR AUTHOR'S ORGANIZ ATION 01/12/2023 [facility] DATE CREATED AUTHOR AUTHOR'S ORGANIZ ATION 02/15/2023 [facility] DATE CREATED AUTHOR AUTHOR'S ORGANIZ ATION 04/04/2023 [facility] DATE CREATED AUTHOR AUTHOR'S ORGANIZ ATION 02/20/2024 [facility] DATE CREATED AUTHOR AUTHOR'S ORGANIZ ATION 09/08/2024 [facility] DATE CREATED AUTHOR AUTHOR'S ORGANIZ ATION 09/17/2024 [facility] DATE CREATED AUTHOR AUTHOR'S ORGANIZ ATION 10/17/2024 [facility] Reason for Visit (unrecogniz ed section and content) Status Reason Specialty Diagnoses / Procedures Referre d By Contact Referred To Contact Closed Radiology Diagnoses Brachial neuritis Peripheral nerve disorder Spasm of muscle Procedures MR Cervical Spine Without Contrast Tiffanie Casas MD [address] [place] [address] Specialty Diagnoses / Procedures Referred By Contac t Referred To Contact Occupational Therapy Diagnoses Carpal tunnel syndrome Carpal Tunnel Syndrome Procedures Eval and treat Keenan Lozano MD [address] [address] [facility] Therapy [address] [place] [address] Referral ID Status Reason Start Date Expiration Date Visits Re quested Visits Authorized [id number] Open 12/19/2021 12/19/2022 1 1 Specialty Diagnoses / Procedures Referred By Contac t Referred To Contact Physical Therapy Diagnoses Radiculopathy, lumbar region Lumbar Radiculopathy Procedures Eval and treat Janel Allen, MEDICAL ASSISTANT FLOAT - [employer] [address] [facility] [address] [place] [address] [facility] [address] [place] [address] Referral ID Status Reason Start Date Expiration Date Visits Re quested Visits Authorized [id number] Open 12/19/2021 12/19/2022 1 1 Specialty Diagnoses / Procedures Referred By Contac t Referred To Contact Radiology Diagnoses Neck mass Procedures US HEAD NECK SOFT TISSUE THYROID Felipe Adam MD [address] [place] [address] Referral ID Status Reason Start Date Expiration Date Visits Re quested Visits Authorized [id number] Closed 05/27/2022 05/27/2023 1 1 Specialty Diagnoses / Procedures Referred By Contac t Referred To Contact Radiology Diagnoses Pain of foot, unspecified laterality Closed nondisplaced fracture of lateral cuneiform of left foot, initial encounter Procedures MRI FOOT LEFT W WO CONTRAST MRI FOOT LEFT W WO CONTRAST Robbin Sánchez, DPM [address] [facility], [place] [address] Referral ID Status Reason Start Date Expiration Date Visits Re quested Visits Authorized [id number] Closed 06/20/2022 06/20/2023 1 1 Reason Comments Education Class Specialty Diagnoses / Procedures Referred By Contac t Referred To Contact Diabetes Services Diagnoses Pre-diabetes Feilpe Adam MD [address] [place] [address] [facility] [address] [place] [address] Referral ID Status Reason Start Date Expiration Date V isits Requested Visits Authorized [id number] Open Specialty Services Required 06/30/2022 06/30/2023 2 2 Specialty Diagnoses / Procedures Referred By Contac t Referred To Contact Diabetes Services Diagnoses Pre-diabetes Jair, MD Fel[address] [phone] [facility] [address] [place] [address] Reason Comments Other Left foot charcot on -going since 06/2022. New x-rays today. 2nd of opinion. Specialty Diagnoses / Procedures Referred By Thor bernal Referred To Contact Radiology Diagnoses Thyroid nodule Procedures US THYROID Felipe Adam MD [address] [phone] Referral ID Status Reason Start Date Expiration Date V isits Requested Visits Authorized [id number] Pending Review 09/06/2024 08/26/2025 1 1 Reason Comments Sleep Apnea Reason Onset Date Comments Med Refill 10/05/2024 Reason Comments New Patient FNA - THYROID NODULE Specialty Diagnoses / Procedures Referred By Thor bernal Referred To Contact Otolaryngology Diagnoses Thyroid nodule Felipe Adam MD [address] [place] [address] Phone: tel: fax: Sherman Adair MD [address] [phone] Phone: tel: fax: Referral ID Status Reason Start Date Expiration Date V isits Requested Visits Authorized [id number] Pending Review 09/09/2024 09/09/2025 1 1 Care Teams (unrecognized sec tion and content) Junior Analyst Relationship Specialty Start Date End Date Felipe Adam MD [address] [phone] PCP - General Internal Medicine 11/14/11 Junior Analyst Relationship Specialty Start Date End Date Felipe Adam MD [address] [place] [address] PCP - General Internal Medicine 11/14/11 Junior Analyst Relationship Specialty Start Date End Date Felipe Adam MD [address] [place] [address] PCP - General Internal Medicine 11/14/11 Junior Analyst Relationship Specialty Start Date End Date Back, MD Felipe [address] [place] [address] PCP - General Internal Medicine 11/14/11 Junior Analyst Relationship Specialty Start Date End Date Back, MD Felipe [address] [place] [address] PCP - General Internal Medicine 11/14/11 Junior Analyst Relationship Specialty Start Date End Date Back, MD Felipe [address] [place] [address] PCP - General Internal Medicine 11/14/11 Junior Analyst Relationship Specialty Start Date End Date Back, MD Felipe [address] [place] [address] PCP - General Internal Medicine 11/14/11 Team Status: Inactive Member Role Status Dates NON STAFF Primary Care Provider Active Tiffanie Casas MD Attending Provider Active Team Status: Active Member Role Status Dates NON STAFF Primary Care Provider Active Junior Analyst Relationship Specialty Start Date End Date Back, MD Felipe [address] [place] [address] PCP - General Internal Medicine 11/14/11 Junior Analyst Relationship Specialty Start Date End Date Back, MD Felipe [address] [place] [address] PCP - General Internal Medicine 11/14/11 Junior Analyst Relationship Specialty Start Date End Date Back, MD Felipe [address] [place] [address] PCP - General Internal Medicine 11/14/11 Junior Analyst Relationship Specialty Start Date End Date Back, MD Felipe [address] [place] [address] PCP - General Internal Medicine 11/14/11 Junior Analyst Relationship Specialty Start Date End Date Back, MD Felipe [address] [id number] PCP - General Internal Medicine 11/14/11 Junior Analyst Relationship Specialty Start Date End Date Back, MD Felipe [address] [facility], [id number] PCP - General Internal Medicine 11/14/11 Junior Analyst Relationship Specialty Start Date End Date Back, MD eFlipe [address] [facility], [id number] PCP - General Internal Medicine 11/14/11 Junior Analyst Relationship Specialty Start Date End Date Back, MD Felipe [address] [facility], [id number] PCP - General Internal Medicine 11/14/11 Junior Analyst Relationship Specialty Start Date End Date Back, MD Felipe [address] [facility], [id number] PCP - General Internal Medicine 03/26/15 Junior Analyst Relationship Specialty Start Date End Date Back, MD Felipe [address] [facility], [id number] PCP - General Internal Medicine 11/14/11 Team Status: Inactive Member Role Status Dates Frances Harris DPM MS Attending Provider Active Start: February 15, 2024 End: February 15, 2024 Junior Analyst Relationship Specialty Start Date End Date Back, MD Felipe [address] [facility], [id number] PCP - General Internal Medicine 11/14/11 Junior Analyst Relationship Specialty Start Date End Date Back, MD Felipe [address] [place] [id number] PCP - General Internal Medicine 11/14/11 Junior Analyst Relationship Specialty Start Date End Date Back, MD [address] [place] [address] PCP - General Internal Medicine 03/26/15 Junior Analyst Relationship Specialty Start Date End Date Back, MD [address]ipe [address] [place] [address] PCP - General Internal Medicine 03/26/15 Goals (unrecognized section and content) Goals may [...] BE BASED ON THE PRIMARY CLINICAL RECORDS. [employer] provides no warranty or guarantee of the accuracy or completeness of information in this document.
--- NOTE | 2024-11-01 11:00 | XR_ITS ---
The [address] [address] Patient Name: CHASTITY GASPAR MRN: [id number] date: 1980 Sex: F Assigned Patient Location: [facility] Current Patient Location: Accession/Order Number: [id number] Exam Date: 11/01/2024 10:45 Report Date: 11/02/2024 13:09 At the request of: FRANCES HARRIS Procedure: XR foot LT min 3V PROCEDURE: XR foot LT min 3V HISTORY: Left Foot Pain COMPARISON: XR foot left 09/20/2024 FINDINGS: BONES:Prior resection of the majority of the bones of the midfoot with mechanical fusion of the forefoot and hindfoot via multiple screws. Fusion of the posterior talocalcaneal joint with persistent osseous lucencies surrounding the posterior aspect of the calcaneal screw.. SOFT TISSUES:No visible soft tissue swelling. EFFUSION:None visible. OTHER: Negative. XR/XR foot LT min 3V IMPRESSION: 1. Stable surgical resection and fusion of the midfoot and hindfoot. No appreciable hardware failure or change in alignment. Electronically authenticated by: PIPER MERCEDES Date: 11/02/2024 13:09
== END 2024-11-01 10:36 | disposition home or self-care (01) ==
LOC: RAD 10:35
PROVIDERS: Visit Provider Podiatrist Foot & Ankle Surgery
DX: M79.672 Pain in left foot (principal); M24.675 Ankylosis, left foot
CPT/HCPCS: 73630

== ENCOUNTER 2024-11-18 11:06 | Outpatient (OUT) | payer OTHER, SELFPAY ==
--- NOTE | 2024-11-18 | XR_ITS ---
The [address] [address] Patient Name: CHASTITY GASPAR MRN: [id number] date: 1980 Sex: F Assigned Patient Location: Current Patient Location: Accession/Order Number: [id number] Exam Date: 11/18/2024 10:55 Report Date: 11/18/2024 13:44 At the request of: FRANCES HARRIS Procedure: XR foot LT min 3V PROCEDURE: XR foot LT min 3V HISTORY: LEFT FOOT PAIN COMPARISON: XR foot left 11/01/2024 FINDINGS: BONES:Mechanical fusion of the first, second, and third tarsal-metatarsal joints. Fusion of the talocalcaneal and talonavicular joints. No convincing hardware fracture or loosening. Advanced degenerative change of the midfoot and loss of plantar arch. SOFT TISSUES:Mild/moderate soft tissue swelling surrounding the foot. EFFUSION:None visible. OTHER: Negative. XR/XR foot LT min 3V IMPRESSION: 1. Stable surgical changes without evidence of hardware failure or change in alignment. Electronically authenticated by: PIPER MERCEDES Date: 11/18/2024 13:44
--- OUTSIDE RECORDS SUMMARY | 2024-11-18 11:12 | XMS_ITS | CCD ---
Author Organization [facility] Care Team Providers Care Shore Working Supervisor Name Role Phone Back, Felipe Unavailable Unavailable [...] Unavailable Unavailable SELF, SELF Unavailable Unavailable GHAZOUL, GAEY Unavailable Unavailable GHAZOUL, GAYE Unavailable Unavailable GHAZOUL, GAYE Unavailable Unavailable GHAZOUL, GAYE Unavailable Unavailable BACK, BILL Unavailable Unavailable HARTMAN, GOSIA Unavailable Unavailable HARTMAN, GOSIA Unavailable Unavailable GHAZOUL, GAYE Unavailable Unavailable BACK, BILL Unavailable Unavailable Hartman, Gosia Unavailable Unavailable Hartman, Gosia Unavailable Unavailable Hartman, Gosia Unavailable Unavailable Hartman, Gosia Unavailable Unavailable Hartman, Gosia Unavailable Unavailable Hartman, Gosia Unavailable Unavailable ZECHARIAH, JV Admitting Unavailable CURT SUMMERS Referring Unavailable [...] Provider Back , Felipe Primary Care Provider [phone] Back , Felipe Primary Care Provider BACK, FELIPE Primary Care Unavailable MUTNAL, AMAR Admitting Unavailable MUTNAL, AMAR Attending Unavailable Back , Felipe Primary Care Provider NON STAFF Primary Care Provider UnavailMD Tiffanie Mixon. Attending Provider Back , Felipe Primary Care Provider [phone] YOON COBB Referring Unavailable BACK, FELIPE Primary Care Unavailable Back , Felipe Primary Care Provider KALPESH ARENAS Attending Unavail able BACK, FELIPE Primary Care Unavailable Back , Felipe Primary Care Provider FRANCES HARRIS Admitting Unavailable FRANCES HARRIS Attending Unavailable FRANCES HARRIS Consulting Unavailable FRANCES HARRIS Admitting Unavailable HIGHLANDERFRANCES Attending Unavailable [facility], DR PIPER Ackerman Consulting Unavailable HIGHLANDERFRANCES Consulting Unavailable HIGHLFRANCES HERNANDEZ Admitting Unavailable HIGHLFRANCES HERNANDEZ Attending Unavailable [place], DR EMILY Riojas Consulting Unavailable HIGHLFRANCES HERNANDEZ Consulting Unavailable Back , Felipe Primary Care Provider [phone] BACK, FELIPE Primary Care Unavailable ROBBIN SHOOK II Attending Un available Back Felipe MELENDREZ Primary Care Provider INDER Harris Attending Provider Frances Harris Attending Unavailable Frances Harris Admitting Unavailable Unavailable Primary Care Provider Unavailabl e BACK, FELIPE Referring Unavailable BACK, FELIPE Primary Care Unavailable BACK, FELIPE Admitting Unavailable SHERMAN ADAIR Attending Unavailable BACK, FELIPE Attending Unavailable BACK, FELIPE Referring Unavailable BACK, FELIPE Primary Care Unavailable BACK, FELIPE Referring Unavailable BACK, FELIPE Primary Care Unavailable BACK, FELIPE Referring Unavailable BACK, FELIPE Primary Care Unavailable ELLISNA, HEATHER Referring Unavailable BACK, FELIPE Primary Care Unavailable BACK, FELIPE Referring Unavailable BACK, FELIPE Primary Care Unavailable BACK, FELIPE Referring Unavailable BACK, FELIPE Primary Care Unavailable BACK, FELIPE Referring Unavailable BACK, FELIPE Primary Care Unavailable TAMMI QUIÑONES Referring Unavailabl e BACK, FELIPE Primary Care Unavailable FOZIA MENG Attending Unavailable LORE MILES Attending Unavailable TIFFANIE CASAS Attending Unavailable FOZIA MENG Attending Unavailable Allergies Allergy Classification Reported Allergen(s) Allergy Type Date of Onset Reaction(s) Facility (20 sources) Chlorhexidine; Translations: [CHLORHEXIDINE] Drug Allergy 3 Rash [facility] (5 sources) topiramate; Translations: [TOPIRAMATE] Drug Allergy 4 Other (See Comments) [facility] (15 sources) Topiramate Propensity to adverse reactions 4 [...] 2 tablets by mouth at bedtime baclofen (Lioresal) 10 MG tablet Indications: Cervical paraspinal muscle spasm TAKE 2 TABLETS BY MOUTH AT BEDTIME FOR 30 DAYS 60 tablet 3 07/12/2024 Active Start: 04-19-2022 baclofen (DORA ESAL) 10 [...] mouth 3 times daily 0 Active Calcium (15 sources) Phosphate Binder, Calcium take 1 tablet by mouth in the morning calcium 500 MG tablet Take 1 tablet by mouth in the morning and 1 tablet before bedtime. Active calcium carbonate 500 mg oral tablet (8 sources) take 1 tablet by mouth twice daily calcium carbonate (OSCAL) 500 MG TABS tablet Take 1 tablet by mouth 2 times daily Active calcium carbonat e (CALCIUM 500 ORAL) Take by mouth . Active calcium carbonat e (CALCIUM 500 ORAL) Take by mouth . 0 Active cephalexin 250 mg oral capsule (10 sources) Cephalosporin Antibacterial Start: 08-13-2023 End: 06-10-2024 [...] mouth daily. 30 capsule 12 09/11/2014 Active cholecalciferol (Vitamin D-3) 50 MCG (2000 UT) tablet Take by mouth. Active cholecalciferol, vitamin D3, (VITAMIN D3) 2,000 unit Tab Take by mouth. Active ciprofloxacin 250 mg [...] oral tablet (1 source) alpha-Adrenergic Agonist, Uncompetitive C-mlmqjx-A-aspartat e Receptor Antagonist, Sigma-1 Agonist Start: 02-13-2021 [...] 08/19/2017 Active famotidine 20 mg oral tablet (20 sources) Histamine-2 Receptor Antagonist Start: 07-13-2023 famotidine (PEPCID) 20 MG tablet Indications: Gastroesophageal reflux disease without esophagitis TAKE 1 TABLET TWICE A DAY 180 tablet 1 08/17/2024 Active Start: 05-26-2023 take 1 tablet by [...] DAILY 48 g 3 09/22/2022 Active Start: 09-22-2022 take 2 spray(s) nasa l route in the morning fluticasone (Flonase) 50 MCG/ACT nasal spray Administer 2 sprays into each nostril in the morning. 09/22/2022 Active Start: 04-11-2022 take 2 spray(s) [...] Proliferator Receptor alpha Agonist Start: 06-09-2017 gemfibrozil (LOPID) 600 MG tablet Indications: Mixed hyperlipidemia TAKE 1 TABLET TWICE A DAY 30 MINUTES BEFORE BREAKFAST AND SUPPER 180 tablet 1 10/10/2024 Active hydrOXYzine pamoate 50 mg oral capsule (14 sources) Antihistamine Start: 03-06-2023 hydrOXYzine pamoate (Vistaril) [...] 0 Active linaclotide 0.145 mg oral capsule (3 sources) Guanylate Cyclase-C Agonist Start: 05-09-2024 take [...] sources) Leukotriene Receptor Antagonist Start: 09-22-2022 End: 10-31-2025 take 1 tablet by mouth at bedtime montelukast (Singulair) 10 MG tablet Indications: Idiopathic progressive polyneuropathy , Non-seasonal allergic rhinitis due to pollen Take 1 tablet (10 mg) by mouth at bedtime 90 tablet 3 10/31/2024 10/31/2025 Active Start: 04-11-2022 take 1 tablet by [...] 06/16/2021 Active nortriptyline 50 mg oral capsule (20 sources) Tricyclic Antidepressant Start: 09-14-2024 End: 11-02-2025 take 2 capsules by mouth at bedtime nortriptyline (Pamelor) 50 MG capsule Indications: Idiopathic progressive polyneuropathy , Intractable 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 (CMS/HCC) Take 2 capsules (100 mg) by mouth at bedtime 180 capsule 3 11/02/2024 11/02/2025 Active Start: 06-10-2024 End: 09-14-2024 take 2 [...] 38.0 to 38.9 in adult ([facility]) Take 1 tablet by mouth every [...] 40.0 to 44.9 in adult ([facility]) Take 1 capsule by mouth every [...] oral capsule (20 sources) Start: 02-20-2022 End: 10-31-2025 take 1 capsule by mouth twice daily pregabalin (LYRICA) 300 MG capsule Take 1 capsule by mouth 2 times daily. 02/20/2022 Active Start: 08-25-2018 take 1 capsule by [facility] three times daily pregabalin (LYRICA) 150 [...] mg disintegrating oral tablet (20 sources) Start: 10-31-2024 Rimegepant Sulfate (Nurtec) 75 MG tablet dispersible Indications: Intractable 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 (CMS/HCC) Take 75 mg by mouth See administration instructions Take 1- 75mg tablet by mouth as needed at the onset of migraine. 16 tablet 11 10/31/2024 Active Start: 09-07-2024 Rimegepant Sul fate (Nurtec) 75 MG tablet [...] tablet (20 sources) Nonergot Dopamine Agonist Start: 10-31-2024 End: 10-31-2025 take 1 tablet by mouth in the morning, then take 1 tablet by mouth in the evening, then take 1 tablet by mouth at bedtime rOPINIRole (Requip) 0.5 MG tablet Indications: Restless legs Take 1 tablet (0.5 mg) by mouth in the morning and 1 tablet (0.5 mg) in the evening and 1 tablet (0.5 mg) before bedtime. 270 tablet 3 10/31/2024 10/31/2025 Active Start: 08-24-2023 rOPINIRole (Re quip) 0.5 MG tablet Indications: Restless legs TAKE 1 TABLET THREE TIMES A DAY 270 tablet 3 08/24/2023 Active Start: 02-10-2023 rOPINIRole (RE QUIP) 0.5 MG tablet Start: 04-02-2021 take 1 tablet by prabhjot three times daily rOPINIRole (REQUIP) 1 MG tablet Indications: Restless legs Take 1 tablet by mouth 3 times daily 270 tablet 1 10/10/2024 Active Start: 12-26-2020 rOPINIRole (RE QUIP) 0.5 MG tablet take 1 tablet by prabhjot twice daily rOPINIRole (REQUIP) 0.5 MG tablet Take 0.5 mg by mouth 2 times daily 0 Active sertraline 100 mg oral tablet (20 sources) Serotonin Reuptake Inhibitor Start: 02-25-2023 sertraline (Zoloft) 100 MG tablet 02/25/2023 Active Start: 07-30-2020 take [address] [facility] once daily sertraline (ZOLOFT) 100 MG tablet Take 2 tablets by mouth daily Currently decreasing this medication 07/30/2020 Active Start: 07-30-2020 take 1 tablet by prabhjot once daily sertraline (ZOLOFT) 100 MG tablet Take 100 mg by mouth daily Currently decreasing this medication 0 07/30/2020 Active Start: 07-06-2019 take [address] [facility] once daily sertraline (ZOLOFT) 50 MG tablet [...] deficiency, unspecified] Onset: 4 08-15-2018 Chronic Osteoarthritis (15 sources) Degenerative joint disease of ankle AND/OR foot; Translations: [Primary osteoarthritis, unspecified ankle and foot] Onset: 3 03-08-2023 Chronic Other acquired deformities (15 sources) Contracture of joint of left ankle; [...] 7 03-05-2017 Chronic Other nervous system disorders (20 sources) Idiopathic progressive polyneuropathy; Translations: [Idiopathic progressive neuropathy] Onset: 3 08-11-2024 Chronic Other nervous system disorders (19 sources) Bilateral carpal tunnel syndrome; Translations: [Carpal tunnel syndrome, bilateral upper limbs] Onset: 3 03-08-2023 Chronic Other nervous system disorders (15 sources) Carpal tunnel syndrome of left wrist; Translations: [Carpal tunnel syndrome, left upper limb] Onset: 3 03-08-2023 Chronic Other nervous system disorders (15 sources) Inattention; Translations: [Attention and concentration deficit] Onset: 3 03-08-2023 Chronic Other nervous system disorders (15 sources) Disorder of the peripheral nervous system; Translations: [Hereditary and idiopathic neuropathy, unspecified] Onset: 3 03-08-2023 Chronic Other nervous system disorders (15 sources) Tarsal tunnel syndrome; Translations: [Tarsal tunnel [...] foot] 03-03-2023 Chronic Other non-traumatic joint disorders (15 sources) Acute arthropathy; Translations: [Arthropathy, unspecified] Onset: 3 03-08-2023 Chronic Other non-traumatic joint disorders (15 sources) Charcot's arthropathy; Translations: [Charcot's joint, left [...] protein; Translations: [Elevated C-reactive protein (CRP)] Onset: 3 08-18-2018 Episodic Other screening for suspected conditions [...] Onset: 0 05-11-2020 Chronic Residual codes; unclassified (17 sources) Hypersomnia; Translations: [Hypersomnia, unspecified] Onset: 3 [...] Problem Date Documented Date Episodic/Chronic Abdominal pain (16 sources) Female genital organ symptoms; Translations: [Pelvic [...] of skin] Onset: 02-05-2018 08-03-2017 Episodic 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 and poliomyelitis (20 sources) Extradural and subdural abscess, unspecified; Translations: [Epidural abscess] Onset: 08-20-2018 08-20-2018 Episodic Other connective tissue disease (1 source) Spasm; Translations: [Spasm of muscle] Episodic Other connective tissue disease (16 sources) Pain in left foot; Translations: [Pain in left foot] Onset: 05-19-2023 03-03-2023 Episodic Other connective tissue disease (15 sources) Pain in limb; Translations: [Pain in unspecified limb] Onset: 03-08-2023 03-08-2023 Episodic Other connective tissue disease (15 sources) Muscle pain; Translations: [Myalgia, unspecified site] Onset: 03-08-2023 03-08-2023 Episodic Other connective tissue disease (15 sources) Spasm of cervical paraspinous muscle; Translations: [Other muscle spasm] Onset: 05-20-2023 05-20-2023 Episodic Other connective tissue disease (15 sources) Bilateral trochanteric bursitis; Translations: [Trochanteric bursitis, right hip] Onset: 08-24-2023 08-24-2023 Episodic Other nervous system disorders (20 sources) Metabolic encephalopathy; Translations: [Metabolic encephalopathy] Resolved: 05-11-2020 08-16-2018 Chronic Other nervous system disorders (15 sources) Skin sensation disturbance; Translations: [Unspecified disturbances of skin sensation] Onset: 03-08-2023 03-08-2023 Episodic Other non-epithelial cancer of skin (20 sources) Basal cell carcinoma of skin; Translations: [Basal cell carcinoma of skin, unspecified] Onset: 09-16-2017 09-29-2017 Episodic Residual codes; unclassified (15 sources) Insomnia; Translations: [Insomnia, unspecified] Onset: 03-08-2023 03-08-2023 Episodic Spondylosis; intervertebral disc disorders; other back problems (19 sources) Radiculopathy, cervical region; Translations: [Acute thoracic back pain] Onset: 02-03-2019 03-08-2023 Episodic Urinary tract infections (20 sources) Acute cystitis; Translations: [Acute cystitis with hematuria] Onset: 05-04-2018 Episodic Results Test Name Value Interpretation Reference Range Facility Comp Metabolic Profon 2024 Albumin [Mass/Vol] 3.8 g/dL Normal 3.5-5.2 [facility] Comment on above: Performed By: #### G LYHGB, LIPR, LDLDIR #### [facility] [place] [address] Medical Claims Processor: Placido Pierce MD #### CP #### [facility] [address] [place], [place] [id number] Medical Claims Processor: Emily George MD Alkaline Phos 115 U/L High 35-104 [facility] Comment on above: Performed By: #### G LYHGB, LIPR, LDLDIR #### [facility] [address] [place] [address] Medical Claims Processor: Placido Pierce MD #### CP #### [facility] [address] [place], [place] [id number] Medical Claims Processor: Emily George MD ALT [Catalytic activity/Vol] 11 U/L Normal 5-33 [facility] Comment on above: Performed By: #### G LYHGB, LIPR, LDLDIR #### [address] [address] Medical Claims Processor: Placido Pierce MD #### CP #### [facility] [address] [place], [place] [id number] Medical Claims Processor: Emily George MD Anion gap [Moles/Vol] 12 mmol/L Normal 9-17 [facility] Comment on above: Performed By: #### G LYHGB, LIPR, LDLDIR #### [facility] [address] [place] [id number] Medical Claims Processor: Placido Pierce MD #### CP #### [facility] [address] [place], [place] [id number] Medical Claims Processor: Emily George MD AST [Catalytic activity/Vol] 14 U/L Normal <32 [facility] Comment on above: Performed By: #### G LYHGB, LIPR, LDLDIR #### [address] [address] Medical Claims Processor: Placido Pierce MD #### CP #### [facility] [address] [place], [place] [id number] Medical Claims Processor: Emily George MD Bilirubin [Mass/Vol] 0.4 mg/dL Normal 0.3-1.2 [facility] Comment on above: Performed By: #### G LYHGB, LIPR, LDLDIR #### [address] [id number] Medical Claims Processor: Placido Pierce MD #### CP #### [facility] [address] [place], [place] [id number] Medical Claims Processor: Emily George MD BUN/CRE Ratio 19 Normal 9-20 [facility] Comment on above: Performed By: #### G LYHGB, LIPR, LDLDIR #### [address] [id number] Medical Claims Processor: Placido Pierce MD #### CP #### [facility] [address] [place], [place] [id number] Medical Claims Processor: Emily George MD Calcium [Mass/Vol] 9.3 mg/dL Normal 8.6-10.4 [facility] Comment on above: Performed By: #### G LYHGB, LIPR, LDLDIR #### [address] [id number] Medical Claims Processor: Placido Pierce MD #### CP #### [facility] [address] [place], [place] [id number] Medical Claims Processor: Emily George MD Chloride [Moles/Vol] 102 mmol/L Normal 98-107 [facility] Comment on above: Performed By: #### G LYHGB, LIPR, LDLDIR #### [address] [id number] Medical Claims Processor: Placido Pierce MD #### CP #### [facility] [address] [place], [place] [id number] Medical Claims Processor: Emily George MD CO2 [Moles/Vol] 25 mmol/L Normal 20-31 [facility] Comment on above: Performed By: #### G LYHGB, LIPR, LDLDIR #### [facility] [address] [place] [address] Medical Claims Processor: Placido Pierce MD #### CP #### [facility] [address] [place], [place] [id number] Medical Claims Processor: Emily George MD Creatinine [Mass/Vol] 1.1 mg/dL High 0.5-0.9 [facility] Comment on above: Performed By: #### G LYHGB, LIPR, LDLDIR #### [address] [id number] Medical Claims Processor: Placido Pierce MD #### CP #### [facility] [address] [place], [place] [id number] Medical Claims Processor: Emily George MD GFR/1.73 sq M.predicted among non-blacks MDRD (S/P/Bld) [Vol rate/Area] 63 mL/min/{1.73_m2} Normal >60 [facility] Comment on above: Result Comment: [...] affects renal tubular secretion. Performed By: #### G LYHGB, LIPR, LDLDIR #### [facility] [address] [place], [place] [id number] Medical Claims Processor: Placido Pierce MD #### CP #### [facility] [address] [place], [place] [id number] Medical Claims Processor: Emily George MD Glucose [Mass/Vol] 125 mg/dL High 70-99 [facility] Comment on above: Performed By: #### G LYHGB, LIPR, LDLDIR #### [address] [address] Medical Claims Processor: Placido Pierce MD #### CP #### [facility] [address] [place] [address] Medical Claims Processor: Emily George MD Potassium [Moles/Vol] 4.2 mmol/L Normal 3.7-5.3 [facility] Comment on above: Performed By: #### G LYHGB, LIPR, LDLDIR #### [address] [address] Medical Claims Processor: Placido Pierce MD #### CP #### [facility] [address] [place] [address] Medical Claims Processor: Emily George MD Protein [Mass/Vol] 7.2 g/dL Normal 6.4-8.3 [facility] Comment on above: Performed By: #### G LYHGB, LIPR, LDLDIR #### [address] [address] Medical Claims Processor: Placido Pierce MD #### CP #### [facility] [address] [place] [address] Medical Claims Processor: Emily George MD Sodium [Moles/Vol] 139 mmol/L Normal 135-144 [facility] Comment on above: Performed By: #### G LYHGB, LIPR, LDLDIR #### [address] [id number] Medical Claims Processor: Placido Pierce MD #### CP #### [facility] [address] [place] [address] Medical Claims Processor: Emily George MD Urea nitrogen [Mass/Vol] 21 mg/dL High 6-20 [facility] Comment on above: Performed By: #### G LYHGB, LIPR, LDLDIR #### [facility] [address] [place] [address] Medical Claims Processor: Placido Pierce MD #### CP #### [facility] [address] [place] [address] Medical Claims Processor: Emily George MD Comprehensive Metabolic Pane lyn 11-14-2024 Albumin [Mass/Vol] 3.8 g/dL 3.5 - 5.2 g/dL [facility] ALP [Catalytic activity/Vol] 115 U/L High 35 - 104 U/L [facility] ALT [Catalytic activity/Vol] 11 U/L 5 - 33 U/L [facility] Anion gap [Moles/Vol] 12 mmol/L 9 - 17 mmol/L [facility] AST [Catalytic activity/Vol] 14 U/L NINF - 32 U/L [facility] Bilirubin [Mass/Vol] 0.4 mg/dL 0.3 - 1 .2 mg/dL [facility] Calcium [Mass/Vol] 9.3 mg/dL 8.6 - 10. 4 mg/dL [facility] Chloride [Moles/Vol] 102 mmol/L 98 - 10 7 mmol/L [facility] CO2 [Moles/Vol] 25 mmol/L 20 - 31 mmol/L [facility] Creatinine [Mass/Vol] 1.1 mg/dL High 0.5 - 0.9 mg/dL [facility] Est, Glom Filt Rate 63 - PINF [facility] Comment on above: These results are not [...] that affects renal tubular secretion. Glucose [Mass/Vol] 125 mg/dL High 70 - 99 mg/dL [facility] Interpretation and review of laboratory results Abnormal [facility] Potassium [Moles/Vol] 4.2 mmol/L 3.7 - 5.3 mmol/L [facility] Protein [Mass/Vol] 7.2 g/dL 6.4 - 8.3 g/dL [facility] Sodium [Moles/Vol] 139 mmol/L 135 - 144 mmol/L [facility] Urea nitrogen [Mass/Vol] 21 mg/dL High 6 - 20 mg/dL [facility] Urea nitrogen/Creatinine [Mass ratio] 19 mg/mg 9 - 20 [facility] Hemoglobin A1Con 11-14-2024 Average glucose Estimated from glycated hemoglobin (Bld) [Mass/Vol] 103 mg/dL [facility] Comment on above: The ADA and AACC rec ommend providing the estimated average glucose result to permit better patient understanding of their HBA1c result. HbA1c (Bld) [Mass fraction] 5.2 % 4.0 - 6.0 % [facility] Glucose [Mass/Vol] 103 mg/dL Normal [facility] Comment on above: Result Comment: The ADA and AACC recommend providing the estimated average glucose result to permit better patient understanding of their HBA1c result. Performed By: #### G LYHGB, LIPR, LDLDIR #### [facility] [place] [address] Medical Claims Processor: Placido Pierce MD #### CP #### [facility] [address] [place] [address] Medical Claims Processor: Emily George MD HbA1c (Bld) [Mass fraction] 5.2 % Normal 4.0-6.0 [facility] Comment on above: Performed By: #### G LYHGB, LIPR, LDLDIR #### [facility] [address] [place] [id number] Medical Claims Processor: Placido Pierce MD #### CP #### [facility] [address] [place] [address] Medical Claims Processor: Emily George MD LDL Chol, Directon LDL Chol, Direct 94 mg/dL Normal <100 [facility] Comment on above: Performed By: #### U RTPRT #### [facility] [address] [place], [place] [id number] Medical Claims Processor: Placido Pierce MD #### MG, RENP, UA #### [facility] [address] [place] [address] Medical Claims Processor: Emily George MD LDL Cholesterol, Directon Cholesterol in LDL [Mass/Vol] 94 mg/dL NINF - 100 mg/dL [facility] Lipid Panelon 11-14-2024 Cholesterol [Mass/Vol] 179 mg/dL 0 - 199 mg/dL [facility] Comment on above: Cholesterol Guidelines: <200 Desirable 200-240 Borderline >240 Undesirable Cholesterol in HDL [Mass/Vol] 31 mg/dL Low 40 - PINF mg/dL [facility] Comment on above: HDL Guidelines: <40 Undesirable 40-59 Borderline >59 Desirable Cholesterol in LDL [Mass/Vol] Can not be calculated 0 - 100 mg/dL [facility] Comment on above: LDL Guidelines: <100 Desirable 100-129 Near to/above Desirable 130-159 Borderline >159 Undesirable Direct (measured) LDL and calculated LDL are not interchangeable tests. Cholesterol in VLDL [Mass/Vol] Can not be calculated 1 - 30 mg/dL [facility] Cholesterol.total/Chol esterol in HDL [Mass ratio] 5.8 {ratio} [facility] Interpretation and review of laboratory results Abnormal [facility] Triglyceride [Mass/Vol] 407 mg/dL High NINF - 150 mg/dL [facility] Comment on above: Triglyceride Guidelines: <150 Desirable 150-199 Borderline 200-499 High >499 Very high Based on AHA Guidelines for fasting triglyceride, July 2012. [facility] Lipid Profileon 11-14-2024 Cholesterol [Mass/Vol] 179 mg/dL Normal 0-199 [facility] Comment on above: Result Comment: Cholesterol Guidelines: <200 Desirable 200-240 Borderline >240 Undesirable Performed By: #### G LYHGB, LIPR, LDLDIR #### [id number] [place] [address] Medical Claims Processor: Placido Pierce MD #### CP #### [facility] [address] [place], [place] [id number] Medical Claims Processor: Emiyl George MD Cholesterol in HDL [Mass/Vol] 31 mg/dL Low >40 [facility] Comment on above: Result Comment: HDL Guidelines: <40 Undesirable 40-59 Borderline >59 Desirable Performed By: #### G LYHGB, LIPR, LDLDIR #### [address] [address] Medical Claims Processor: Placido Pierce MD #### CP #### [facility] [facility] [address] [place], [place] [id number] Medical Claims Processor: Emily George MD Cholesterol,LDL Can not be calculated Normal 0-100 [facility] Comment on above: Result Comment: LDL Guidelines: <100 Desirable 100-129 Near to/above Desirable 130-159 Borderline >159 Undesirable Direct (measured) LDL and calculated LDL are not interchangeable tests. Performed By: #### G LYHGB, LIPR, LDLDIR #### [address] [address] Medical Claims Processor: Placido Pierce MD #### CP #### [facility] [address] [place], [place] [id number] Medical Claims Processor: Emily George MD Cholesterol,VLDL Can not be calculated Normal 1-30 [facility] Comment on above: Performed By: #### G LYHGB, LIPR, LDLDIR #### [address] [address] Medical Claims Processor: Placido Pierce MD #### CP #### [facility] [address] [place], [place] [id number] Medical Claims Processor: Emily George MD Cholesterol.total/Chol esterol in HDL [Mass ratio] 5.8 {ratio} Normal [facility] Comment on above: Performed By: #### G LYHGB, LIPR, LDLDIR #### [facility] [address] [place], [place] [id number] Medical Claims Processor: Placido Pierce MD #### CP #### [facility] [address] [place], [place] [id number] Medical Claims Processor: Emily George MD Triglyceride [Mass/Vol] 407 mg/dL High <150 [facility] Comment on above: Result Comment: Triglyceride Guidelines: <150 Desirable 150-199 Borderline 200-499 High >499 Very high Based on AHA Guidelines for fasting triglyceride, July 2012. Performed By: #### G LYHGB, LIPR, LDLDIR #### [facility] [address] [place] [address] Medical Claims Processor: Placido Pierce MD #### CP #### [facility] [address] [place], [place] [phone] Medical Claims Processor: Emily George MD US THYROIDon 09-07-2024 US THYROID EXAM: US [...] Lauren Jr., MD 09/07/24 Final result Normal [facility] US Thyroid glandon TI-RADS 5, highly suspicious subcentimeter nodule in the right lobe remains stable. (Follow if greater than or equal to 0.5 cm annually until 5 years according to ACR TI-RADS recommendations). Continued follow-up annually is recommended through 2026. [facility] EXAM: US THYROID HISTORY: Thyroid nodule [...] 1.7 x 1.3 cm. Isthmus: 0.2 cm [facility] Micky Lauren Jr., MD - 09/07/2024 [...] Continued follow-up annually is recommended through 2026. [facility] US Thyroid glandOrdered By: Micky Lauren on 09-07-2024 [facility] Work Phone: US Thyroid glandon Radiology Study observation (narrative) [facility] CT FOOT LEFT WO CONTRASTon 0 05-10-2024 [...] at least moderate tendinopathy. There is a [id number] plantar calcaneal spur. CT is not sensitive [...] Hesham Mcarthur MD 05/10/24 Final result Normal [facility] Magnesiumon 05-10-2024 Magnesium [Mass/Vol] 2.2 mg/dL 1.6 - 2 .6 mg/dL [facility] Magnesium [Mass/Vol] 2.2 mg/dL Normal 1.6-2.6 [facility] Comment on above: Performed By: #### U RTPRT #### [facility] [address] [place] [address] Medical Claims Processor: Placido Pierce MD #### BENJI SPENCER UA #### [facility] [address] [place] [address] Medical Claims Processor: Emily George MD No Panel Informationon 05-10 [facility] Protein / creatinine ratio, urineon 05-10-2024 Creatinine (U) [Mass/Vol] 132.0 mg/dL 28.0 - 217.0 mg/dL [facility] Protein (U) [Mass/Vol] 9 mg/dL [facility] Comment on above: No normal range esta blished. Urine Total Protein Creatinine Ratio 0.07 [facility] Protein,Tot,[place] Uron 2023 Creatinine [Mass/Vol] 132.0 mg/dL Normal 28.0-217.0 [facility] Comment on above: Performed By: #### U RTPRT #### [address] [address] Medical Claims Processor: lPacido Pierce MD #### MG, RENP, UA #### [facility] [address] [place] [address] Medical Claims Processor: Emily George MD Tot Prot. Conc. 9 mg/dL Normal [facility] Comment on above: Result Comment: No n ormal range established. Performed By: #### U RTPRT #### [place] [address] Medical Claims Processor: Placido Pierce MD #### MG, RENP, UA #### [facility] [address] [place] [address] Medical Claims Processor: Emily George MD TP/Cre Ratio 0.07 [facility] Comment on above: Performed By: #### U RTPRT #### [place] [address] Medical Claims Processor: Placido Pierce MD #### MG, RENP, UA #### [facility] [address] [place], [place] [phone] Medical Claims Processor: Emily George MD Renal Function Panelon 05-10 Albumin [Mass/Vol] 4.2 g/dL 3.5 - 5.2 g/dL [facility] Anion gap [Moles/Vol] 15 mmol/L 9 - 17 mmol/L [facility] Calcium [Mass/Vol] 9.2 mg/dL 8.6 - 10. 4 mg/dL [facility] Chloride [Moles/Vol] 101 mmol/L 98 - 10 7 mmol/L [facility] CO2 [Moles/Vol] 25 mmol/L 20 - 31 mmol/L [facility] Creatinine [Mass/Vol] 1.3 mg/dL High 0.5 - 0.9 mg/dL [facility] Est, Glodieudonne Filt Rate 52 Low - [facility] Comment on above: These results are not [...] 141 mg/dL High 70 - 99 mg/dL [facility] Interpretation and review of laboratory results Abnormal [facility] Phosphate [Mass/Vol] 3.8 mg/dL 2.6 - 4 .5 mg/dL [facility] Potassium [Moles/Vol] 4.0 mmol/L 3.7 - 5.3 mmol/L [facility] Sodium [Moles/Vol] 141 mmol/L 135 - 144 mmol/L [facility] Urea nitrogen [Mass/Vol] 19 mg/dL 6 - 20 mg/dL [facility] Urea nitrogen/Creatinine [Mass ratio] 15 mg/mg 9 - 20 [facility] Albumin [Mass/Vol] 4.2 g/dL Normal 3.5-5.2 [facility] Comment on above: Performed By: #### U RTPRT #### [facility] [place] [address] Medical Claims Processor: Placido Pierce MD #### MG, RENP, UA #### [facility] [address] [place], [place] [phone] Medical Claims Processor: Emily George MD Anion gap [Moles/Vol] 15 mmol/L Normal 9-17 [facility] Comment on above: Performed By: #### U RTPRT #### [address] [id number] Medical Claims Processor: Placido Pierce MD #### MG, RENP, UA #### [facility] [address] [place], [place] [phone] Medical Claims Processor: Emily George MD BUN/CRE Ratio 15 Normal 9-20 [facility] Comment on above: Performed By: #### U RTPRT #### [address] [id number] Medical Claims Processor: Placido Pierce MD #### MG, RENP, UA #### [facility] [address] [place], [place] [id number] Medical Claims Processor: Emily George MD Calcium [Mass/Vol] 9.2 mg/dL Normal 8.6-10.4 [facility] Comment on above: Performed By: #### U RTPRT #### [address] [id number] Medical Claims Processor: Placido Pierce MD #### MG, RENP, UA #### [facility] [address] [place], [place] [phone] Medical Claims Processor: Emily George MD Chloride [Moles/Vol] 101 mmol/L Normal 98-107 [facility] Comment on above: Performed By: #### U RTPRT #### [address] [id number] Medical Claims Processor: Placido Pierce MD #### MG, RENP, UA #### [facility] [address] [facility] [place] [phone] Medical Claims Processor: Emily George MD CO2 [Moles/Vol] 25 mmol/L Normal 20-31 [facility] Comment on above: Performed By: #### U RTPRT #### [facility] [address] [place], [place] [phone] Medical Claims Processor: Placido Pierce MD #### MG, RENP, UA #### [facility] [address] [place], [place] [phone] Medical Claims Processor: Emily George MD Creatinine [Mass/Vol] 1.3 mg/dL High 0.5-0.9 [facility] Comment on above: Performed By: #### U RTPRT #### [facility] [address] [place], [place] [id number] Medical Claims Processor: Placido Pierce MD #### MG, RENP, UA #### [facility] [address] [place], [place] [id number] Medical Claims Processor: Emily George MD GFR/1.73 sq M.predicted among non-blacks MDRD (S/P/Bld) [Vol rate/Area] 52 mL/min/{1.73_m2} Low >60 [facility] Comment on above: Result Comment: [...] secretion. Performed By: #### U RTPRT #### [facility] [address] [place], [place] [phone] Medical Claims Processor: Placido Pierce MD #### MG, RENP, UA #### [facility] [address] [place], [place] [phone] Medical Claims Processor: Emily George MD Glucose [Mass/Vol] 141 mg/dL High 70-99 [facility] Comment on above: Performed By: #### U RTPRT #### [address] [id number] Medical Claims Processor: Placido Pierce MD #### MG, RENP, UA #### [facility] [address] [place] [phone] Medical Claims Processor: Emily George MD Phosphorus, Inorg. 3.8 mg/dL Normal 2.6-4.5 [facility] Comment on above: Performed By: #### U RTPRT #### [address] [id number] Medical Claims Processor: Placido Pierce MD #### MG, RENP, UA #### [facility] [address] [place] [phone] Medical Claims Processor: Emily George MD Potassium [Moles/Vol] 4.0 mmol/L Normal 3.7-5.3 [facility] Comment on above: Performed By: #### U RTPRT #### [place] [address] Medical Claims Processor: Placido Pierce MD #### MG, RENP, UA #### [facility] [address] [place] [id number] Medical Claims Processor: Emily George MD Sodium [Moles/Vol] 141 mmol/L Normal 135-144 [facility] Comment on above: Performed By: #### U RTPRT #### [place] [address] Medical Claims Processor: Placido Pierce MD #### MG, RENP, UA #### [facility] [address] [place], [place] [phone] Medical Claims Processor: Emily George MD Urea nitrogen [Mass/Vol] 19 mg/dL Normal 6-20 [facility] Comment on above: Performed By: #### U RTPRT #### [facility] [address] [place], [place] [id number] Medical Claims Processor: Placido Pierce MD #### MG, RENP, UA #### [facility] [address] [place] [address] Medical Claims Processor: Emily George MD Urinalysison 05-10-2024 Bilirubin Ql (U) Negative [facility]GATIVE [facility] Clarity (U) Clear Clear [facility] Color (U) Yellow Yellow [facility] Comment [facility] Glucose Test strip (U) [Mass/Vol] Negative NEGATIVE mg/dL [facility] Hemoglobin Auto test strip Ql (U) Negative NEGATIVE [facility] Interpretation and review of laboratory results Abnormal [facility] Ketones (U) [Mass/Vol] Negative NEGAT BEATRIZ mg/dL [facility] Leukocyte esterase Test strip Ql (U) Negative NEGATIVE [facility] Nitrite Ql (U) Negative NEGATIVE [facility] pH (U) 5.0 [pH] 5.0 - 8.0 [facility] Protein (U) [Mass/Vol] TRACE Abnormal NEGAT BEATRIZ mg/dL [facility] Specific gravity (U) [Rel density] 1.020 1.005 - 1.030 [facility] Urobilinogen Qn (U) Normal 0.0 - 1. 0 EU/dL [facility] Urinalysis, Routineon 2023 Bilirubin, SemiQt,Ur Negative Normal NEG [facility] Comment on above: Performed By: #### U RTPRT #### [facility] [address] [place], [place] [id number] Medical Claims Processor: Placido Pierce MD #### MG, RENP, UA #### [facility] [address] [place] [address] Medical Claims Processor: Emily George MD Blood, Urine Negative Normal NEG [facility] Comment on above: Performed By: #### U RTPRT #### [place] [id number] [place] [address] Medical Claims Processor: Placido Pierce MD #### MG, RENP, UA #### [facility] [address] [place] [address] Medical Claims Processor: Emily George MD Clarity (U) Clear Normal CLEAR [facility] Comment on above: Performed By: #### U RTPRT #### [address] [address] Medical Claims Processor: Placido Pierce MD #### MG, RENP, UA #### [facility] [address] [place] [address] Medical Claims Processor: Emily George MD Color (U) Yellow Normal YEL [facility] Comment on above: Performed By: #### U RTPRT #### [address] [address] Medical Claims Processor: Placido Pierce MD #### MG, RENP, UA #### [facility] [address] [place] [address] Medical Claims Processor: Emily George MD Comment Normal [facility] Comment on above: Performed By: #### U RTPRT #### [address] [address] Medical Claims Processor: Placido Pierce MD #### MG, RENP, UA #### [facility] [address] [place] [address] Medical Claims Processor: mEily George MD Glucose Ql (U) Negative Normal NEG [facility] Comment on above: Performed By: #### U RTPRT #### [address] [address] Medical Claims Processor: Placido Pierce MD #### MG, RENP, UA #### [facility] [address] [place], [place] [id number] Medical Claims Processor: Emily George MD Ketones Ql (U) Negative Normal NEG [facility] Comment on above: Performed By: #### U RTPRT #### [address] [address] Medical Claims Processor: Placido Pierce MD #### MG, RENP, UA #### [facility] [address] [place], [place] [phone] Medical Claims Processor: Emily George MD Leukocyte esterase Test strip Ql (U) Negative Normal NEG [facility] Comment on above: Performed By: #### U RTPRT #### [address] [address] Medical Claims Processor: Placido Pierce MD #### MG, RENP, UA #### [facility] [address] [place], [place] [phone] Medical Claims Processor: Emily George MD Nitrite,Ur Negative Normal NEG [facility] Comment on above: Performed By: #### U RTPRT #### [address] [address] Medical Claims Processor: Placido Pierce MD #### MG, RENP, UA #### [facility] [address] [place], [place] [phone] Medical Claims Processor: Emily George MD PH,Ur 5.0 Normal 5.0-8.0 [facility] Comment on above: Performed By: #### U RTPRT #### [address] [address] Medical Claims Processor: Placido Pierce MD #### MG, RENP, UA #### [facility] [address] [place], [place] [phone] Medical Claims Processor: Emily George MD Protein Ql (U) TRACE Abnormal NEG [facility] Comment on above: Performed By: #### U RTPRT #### [address] [id number] Medical Claims Processor: Placido Pierce MD #### MG, RENP, UA #### [facility] [address] [place], [place] [id number] Medical Claims Processor: Emily George MD Spec. Harrison,Ur 1.020 Normal 1.005-1.030 [facility] Comment on above: Performed By: #### U RTPRT #### [address] [id number] Medical Claims Processor: Placido Pierce MD #### MG, RENP, UA #### [facility] [address] [place], [place] [id number] Medical Claims Processor: Emily George MD Urobilinogen,Ur Normal Normal 0.0-1.0 [facility] Comment on above: Performed By: #### U RTPRT #### [address] [id number] Medical Claims Processor: Placido Pierce MD #### MG, RENP, UA #### [facility] [address] [place], [place] [address] Medical Claims Processor: Emily George MD Basic Metabolic Profon 05-02 Anion gap [Moles/Vol] 11 mmol/L Normal 9-17 [facility] Comment on above: Performed By: #### B MP #### [facility] [address] [place], [place] [id number] Medical Claims Processor: Emily George MD #### GLYHGB, LIPR #### [address] [id number] Medical Claims Processor: Placido Pierce MD BUN/CRE Ratio 18 Normal 9-20 [facility] Comment on above: Performed By: #### B MP #### [facility] [address] [place], [place] [phone] Medical Claims Processor: Emily George MD #### GLYHGB, LIPR #### [address] [id number] Medical Claims Processor: Placido Pierce MD Calcium [Mass/Vol] 9.1 mg/dL Normal 8.6-10.4 [facility] Comment on above: Performed By: #### B MP #### [facility] [address] [place], [place] [id number] Medical Claims Processor: Emily George MD #### GLYHGB, LIPR #### [address] [id number] Medical Claims Processor: Placido Pierce MD Chloride [Moles/Vol] 103 mmol/L Normal 98-107 [facility] Comment on above: Performed By: #### B MP #### [facility] [address] [place], [place] [id number] Medical Claims Processor: Emily George MD #### GLYHGB, LIPR #### [address] [id number] Medical Claims Processor: Placido Pierce MD CO2 [Moles/Vol] 28 mmol/L Normal 20-31 [facility] Comment on above: Performed By: #### B MP #### [facility] [address] [place], [place] [id number] Medical Claims Processor: Emily George MD #### GLYHGB, LIPR #### [address] [id number] Medical Claims Processor: Placido Pierce MD Creatinine [Mass/Vol] 1.1 mg/dL High 0.5-0.9 [facility] Comment on above: Performed By: #### B MP #### [facility] [address] [place] [address] Medical Claims Processor: Emily George MD #### GLYHGMitchel, LIPR #### [address] [id number] Medical Claims Processor: Placido Pierce MD GFR/1.73 sq M.predicted among non-blacks MDRD (S/P/Bld) [Vol rate/Area] 64 mL/min/{1.73_m2} Normal >60 [facility] Comment on above: Result Comment: [...] renal tubular secretion. Performed By: #### B MP #### [facility] [address] [place] [address] Medical Claims Processor: Emily George MD #### KIRILL, LIPR #### [address] [id number] Medical Claims Processor: Placido Pierce MD Glucose [Mass/Vol] 122 mg/dL High 70-99 [facility] Comment on above: Performed By: #### B MP #### [facility] [address] [place], [place] [id number] Medical Claims Processor: Emily George MD #### GLYHGMitchel, LIPR #### [address] [id number] Medical Claims Processor: Placido Pierce MD Potassium [Moles/Vol] 4.1 mmol/L Normal 3.7-5.3 [facility] Comment on above: Performed By: #### B MP #### [facility] [address] [place], [place] [phone] Medical Claims Processor: Emily George MD #### GLYHGB, LIPR #### [facility] [address] [place], [place] [id number] Medical Claims Processor: Placido Pierce MD Sodium [Moles/Vol] 142 mmol/L Normal 135-144 [facility] Comment on above: Performed By: #### B MP #### [facility] [address] [place], [place] [address] Medical Claims Processor: Emily George MD #### GLYHGB, LIPR #### [address] [id number] Medical Claims Processor: Placido Pierce MD Urea nitrogen [Mass/Vol] 20 mg/dL Normal 6-20 [facility] Comment on above: Performed By: #### B MP #### [facility] [address] [place], [place] [phone] Medical Claims Processor: Emily George MD #### GLYHGMitchel, LIPR #### [address] [phone] Medical Claims Processor: Placido Pierce MD Hemoglobin A1Con 05-02-2024 Glucose [Mass/Vol] 105 mg/dL Normal [facility] Comment on above: Result Comment: The ADA and AACC recommend providing the estimated average glucose result to permit better patient understanding of their HBA1c result. Performed By: #### B MP #### [facility] [address] [place], [place] [id number] Medical Claims Processor: Emily George MD #### GLYHGB, LIPR #### [place] [address] [place], [place] 488[address] Medical Claims Processor: Placido Pierce MD HbA1c (Bld) [Mass fraction] 5.3 % Normal 4.0-6.0 [facility] Comment on above: Performed By: #### B MP #### [facility] [address] [place], [place] [id number] Medical Claims Processor: Emily George MD #### GLYHGB, LIPR #### [address] [id number] Medical Claims Processor: Placido Pierce MD Lipid Profileon 05-02-2024 Cholesterol [Mass/Vol] 170 mg/dL Normal 0-199 [facility] Comment on above: Result Comment: Cholesterol Guidelines: <200 Desirable 200-240 Borderline >240 Undesirable Performed By: #### B MP #### [facility] [address] [place], [place] [id number] Medical Claims Processor: Emily George MD #### FEIHGB, LIPR #### [address] [id number] Medical Claims Processor: Placido Pierce MD Cholesterol in HDL [Mass/Vol] 28 mg/dL Low >40 [facility] Comment on above: Result Comment: HDL Guidelines: <40 Undesirable 40-59 Borderline >59 Desirable Performed By: #### B MP #### [facility] [address] [place], [place] [id number] Medical Claims Processor: Emily George MD #### GLYHGMitchel, LIPR #### [address] [id number] Medical Claims Processor: Placido Pierce MD Cholesterol in LDL [Mass/Vol] 77 mg/dL Normal 0-100 [facility] Comment on above: Result Comment: LDL Guidelines: <100 Desirable 100-129 Near to/above Desirable 130-159 Borderline >159 Undesirable Direct (measured) LDL and calculated LDL are not interchangeable tests. Performed By: #### B MP #### [facility] [address] [place], [place] [id number] Medical Claims Processor: Emily George MD #### GLYHGB, LIPR #### [place] [place], [place] [id number] Medical Claims Processor: Placido Pierce MD Cholesterol in VLDL [Mass/Vol] 65 mg/dL Normal [facility] Comment on above: Performed By: #### B MP #### [facility] [address] [place], [place] [id number] Medical Claims Processor: Emily George MD #### GLYHGB, LIPR #### [place] [place], [place] [phone] Medical Claims Processor: Placido Pierce MD Cholesterol.total/Chol esterol in HDL [Mass ratio] 6.0 {ratio} Normal [facility] Comment on above: Performed By: #### B MP #### [facility] [address] [place], [place] [id number] Medical Claims Processor: Emily George MD #### FEIHGMitchel, LIPR #### [facility] [address] [place], [place] [id number] Medical Claims Processor: Placido Pierce MD Triglyceride [Mass/Vol] 323 mg/dL High <150 [facility] Comment on above: Result Comment: Triglyceride Guidelines: <150 Desirable 150-199 Borderline 200-499 High >499 Very high Based on AHA Guidelines for fasting triglyceride, July 2012. Performed By: #### B MP #### [facility] [address] [place], [place] [phone] Medical Claims Processor: Emily George MD #### GLYHGB, LIPR #### [facility] [address] [place], [place] 6[address] Medical Claims Processor: Placido Pierce MD [facility] 02-15-2024 L Specimen: [id number] Received: 02/16/24 Status: ARLEN Liuzahraa Num: [id number] Spec Type: Surgical Subm Dr: Frances Harris,DPM, MS Tissues: A Soft Tissue/Surgical Margin-Other than Tumor,Mass,Lip or Becka (LT MID FOOT CH Procedures: HE/2, Gross/Micro L4 Age/ Patient Sex Location Account Attending Physician JulisaCelina 43/F [place] [id number] Frances Harris DPM, MS SPEC NUM: [id number] RECD: 02/16/24 STATUS: ARLEN LIUZahraa NUM: [id number] MAYTE: 02/15/[address] [facility] DR: Frances Harris DPM, MS ENTERED: 02/16/24 [facility] DR: Ursula,Lab SPEC TYPE: Surgical DEPT: DEANA [...] sections reveal firm, yellow spongy bone matrix. Environmental [employer] sections are submitted following decalcification in A1?A2. Clinical history: varus deformity left ankle, charcot join left ankle and foot. CPT Codes 29876 Specimen: [id number] Received: 02/16/24 Status: ARLEN Julia Num: [id number] Spec Type: Surgical Subm Dr: Frances Harris DPM, MS Tissues: A Soft Tissue/Surgical Margin-Other than Tumor,Mass,Lip or Becka (LT MID FOOT CH Procedures: HE/2, Gross/Micro L4 Patient: Celina Gaspar [id number] (Continued) Signed (signatur e on file) Juan José Yu MD 02/17/24 1549 Normal [facility] CBC with Diffon 01-29-2024 Abs. Basophil 0.04 k/uL Normal 0.00-0.20 [facility] Comment on above: Performed By: #### U RTPRT #### [employer] [facility] [place] [address] Medical Claims Processor: Placido Pierce MD #### BENJI SPENCER UA #### [facility] [address] [place] [address] Medical Claims Processor: Emily George MD Abs.Imm.Granulocyte 0.12 k/uL Normal 0.00-0.30 [facility] Comment on above: Performed By: #### U RTPRT #### [employer] [address] [id number] Medical Claims Processor: Placido Pierce MD #### BENJI SPENCER UA #### [facility] [address] [place] [address] Medical Claims Processor: Emily George MD Abs.Neutrophil (Seg) 3.26 k/uL Normal 2.5-7.0 [facility] Comment on above: Performed By: #### U RTPRT #### [facility] [address] [place], [place] [id number] Medical Claims Processor: Placido Pierce MD #### MGMOREP, UA #### [facility] [address] [place] [address] Medical Claims Processor: Emily George MD Basophils/100 WBC (Bld) 1 % Normal 0-2 [facility] Comment on above: Performed By: #### U RTPRT #### [address] [id number] Medical Claims Processor: Placido Pierce MD #### MGBENJI, UA #### [facility] [address] [place] [address] Medical Claims Processor: Emily George MD Eosinophils (Bld) [#/Vol] 0.06 10*3/uL Normal 0.00-0.40 [facility] Comment on above: Performed By: #### U RTPRT #### [address] [id number] Medical Claims Processor: Placido Pierce MD #### MGMOREP, UA #### [facility] [address] [place], [place] [id number] Medical Claims Processor: Emily George MD Eosinophils/100 WBC (Bld) 1 % Normal 0-5 [facility] Comment on above: Performed By: #### U RTPRT #### [facility] [address] [place] [address] [id number] Medical Claims Processor: Placido Pierce MD #### MGMOREP, UA #### [facility] [address] [place] [address] Medical Claims Processor: Emily George MD Erythrocyte distribution width (RBC) [Ratio] 15.2 % Normal 12.1-15.2 [facility] Comment on above: Performed By: #### U RTPRT #### [address] [id number] Medical Claims Processor: Placido Pierce MD #### MGBENJI, UA #### [facility] [address] [place], [place] [id number] Medical Claims Processor: Emily George MD Hematocrit (Bld) [Volume fraction] 35.5 % Low 36.0-46.0 [facility] Comment on above: Performed By: #### U RTPRT #### [address] [id number] Medical Claims Processor: Placido Pierce MD #### BENJI SPENCER, UA #### [facility] [address] [place] [address] Medical Claims Processor: Emily George MD Hemoglobin (Bld) [Mass/Vol] 11.9 g/dL Low 12.0-16.0 [facility] Comment on above: Performed By: #### U RTPRT #### [address] [id number] Medical Claims Processor: Placido Pierce MD #### MGMOREP, UA #### [facility] [address] [place] [address] Medical Claims Processor: Emily George MD Immature granulocytes/100 WBC (Bld) 2 % Normal 0-5 [facility] Comment on above: Performed By: #### U RTPRT #### [address] [id number] Medical Claims Processor: Placido Pierce MD #### MGMOREP, UA #### [facility] [address] [place] [address] Medical Claims Processor: Emily George MD Lymphocytes (Bld) [#/Vol] 1.66 10*3/uL Normal 1.00-4.80 [facility] Comment on above: Performed By: #### U RTPRT #### [address] [id number] Medical Claims Processor: Placido Pierce MD #### MG, MOREP, UA #### [facility] [address] [place] [address] Medical Claims Processor: Emily George MD Lymphocytes/100 WBC (Bld) 30 % Normal 15-40 [facility] Comment on above: Performed By: #### U RTPRT #### [address] [id number] Medical Claims Processor: Placido Pierce MD #### MGMOREP, UA #### [facility] [address] [place] [address] Medical Claims Processor: Emily George MD MCH (RBC) [Entitic mass] 28.4 pg Normal 26.0-34.0 [facility] Comment on above: Performed By: #### U RTPRT #### [address] [id number] Medical Claims Processor: Placido Pierce MD #### MG, MOREP, UA #### [facility] [address] [place] [address] Medical Claims Processor: Emily George MD MCHC (RBC) [Mass/Vol] 33.5 g/dL Normal 31.0-37.0 [facility] Comment on above: Performed By: #### U RTPRT #### [address] [id number] Medical Claims Processor: Placido Pierce MD #### MG, RENP, UA #### [facility] [address] [place], [place] [id number] Medical Claims Processor: Emily George MD MCV (RBC) [Entitic vol] 84.7 fL Normal 80.0-100.0 [facility] Comment on above: Performed By: #### U RTPRT #### [address] [id number] Medical Claims Processor: Placido Pierce MD #### MG, RENP, UA #### [facility] [address] [place], [place] [phone] Medical Claims Processor: Emily George MD Monocytes (Bld) [#/Vol] 0.43 10*3/uL Normal 0.00-1.00 [facility] Comment on above: Performed By: #### U RTPRT #### [address] [id number] Medical Claims Processor: Placido Pierce MD #### MG, MOREP, UA #### [facility] [address] [place], [place] [id number] Medical Claims Processor: Emily George MD Monocytes/100 WBC (Bld) 8 % Normal 4-8 [facility] Comment on above: Performed By: #### U RTPRT #### [address] [id number] Medical Claims Processor: Placido Pierce MD #### MG, RENP, UA #### [facility] [address] [place], [place] [id number] Medical Claims Processor: Emily George MD Neutrophil (Seg) 58 % Normal 47-75 [facility] Comment on above: Performed By: #### U RTPRT #### [address] [id number] Medical Claims Processor: Placido Pierce MD #### MG, RENP, UA #### [facility] [address] [place] [address] Medical Claims Processor: Emily George MD Platelet mean volume (Bld) [Entitic vol] 10.8 fL Normal 6.0-12.0 [facility] Comment on above: Performed By: #### U RTPRT #### [address] [id number] Medical Claims Processor: Placido Pierce MD #### MGBENJI, UA #### [facility] [address] [place] [address] Medical Claims Processor: Emily George MD Platelets (Bld) [#/Vol] 151 10*3/uL Normal 140-450 [facility] Comment on above: Performed By: #### U RTPRT #### [address] [id number] Medical Claims Processor: Placido Pierce MD #### MGMOREP, UA #### [facility] [address] [place] [address] Medical Claims Processor: Emily George MD RBC (Bld) [#/Vol] 4.19 10*6/uL Normal 4.00-5.20 [facility] Comment on above: Performed By: #### U RTPRT #### [address] [id number] Medical Claims Processor: Placido Pierce MD #### MGMOREP, UA #### [facility] [address] [place] [address] Medical Claims Processor: Emily George MD WBC (Bld) [#/Vol] 5.6 10*3/uL Normal 3.5-11.0 [facility] Comment on above: Performed By: #### U RTPRT #### [address] [id number] Medical Claims Processor: Placido Pierce MD #### MG, RENP, UA #### [facility] [address] [place] [address] Medical Claims Processor: Emily George MD Comp Metabolic Profon 2023 Albumin [Mass/Vol] 4.4 g/dL Normal 3.5-5.2 [facility] Comment on above: Performed By: #### U RTPRT #### [address] [id number] Medical Claims Processor: Placido Pierce MD #### MG, RENP, UA #### [facility] [address] [place] [address] Medical Claims Processor: Emily George MD Alkaline Phos 95 U/L Normal 35-104 [facility] Comment on above: Performed By: #### U RTPRT #### [address] [address] Medical Claims Processor: Placido Pierce MD #### MG, RENP, UA #### [facility] [address] [place], [place] [phone] Medical Claims Processor: Emily George MD ALT [Catalytic activity/Vol] 19 U/L Normal 5-33 [facility] Comment on above: Performed By: #### U RTPRT #### [address] [id number] Medical Claims Processor: Placido Pierce MD #### MG, RENP, UA #### [facility] [address] [place], [place] [phone] Medical Claims Processor: Emily George MD Anion gap [Moles/Vol] 16 mmol/L Normal 9-17 [facility] Comment on above: Performed By: #### U RTPRT #### [address] [id number] Medical Claims Processor: Placido Pierce MD #### MG, RENP, UA #### [facility] [address] [place], [place] [id number] Medical Claims Processor: Emily George MD AST [Catalytic activity/Vol] 22 U/L Normal <32 [facility] Comment on above: Performed By: #### U RTPRT #### [facility] [address] [place], [place] [id number] Medical Claims Processor: Placido Pierce MD #### MG, RENP, UA #### [facility] [address] [place], [place] [id number] Medical Claims Processor: Emily George MD Bilirubin [Mass/Vol] 0.5 mg/dL Normal 0.3-1.2 [facility] Comment on above: Performed By: #### U RTPRT #### [address] [id number] Medical Claims Processor: Placido Pierce MD #### MG, RENP, UA #### [facility] [address] [place], [place] [id number] Medical Claims Processor: Emily George MD BUN/CRE Ratio 21 High 9-20 [facility] Comment on above: Performed By: #### U RTPRT #### [address] [place] [address] Medical Claims Processor: Placido Pierce MD #### MG, RENP, UA #### [facility] [address] [place] [address] Medical Claims Processor: Emily George MD Calcium [Mass/Vol] 9.3 mg/dL Normal 8.6-10.4 [facility] Comment on above: Performed By: #### U RTPRT #### [address] [id number] Medical Claims Processor: Placido Pierce MD #### MG, RENP, UA #### [facility] [address] [place], [place] [id number] Medical Claims Processor: Emily George MD Chloride [Moles/Vol] 99 mmol/L Normal 98-107 [facility] Comment on above: Performed By: #### U RTPRT #### [facility] [address] [place], [place] [id number] Medical Claims Processor: Placido Pierce MD #### MG, RENP, UA #### [facility] [address] [place], [place] [id number] Medical Claims Processor: Emily George MD CO2 [Moles/Vol] 21 mmol/L Normal 20-31 [facility] Comment on above: Performed By: #### U RTPRT #### [facility] [address] [place], [place] [phone] Medical Claims Processor: Placido Pierce MD #### MG, RENP, UA #### [facility] [address] [place], [place] [id number] Medical Claims Processor: Emily George MD Creatinine [Mass/Vol] 1.2 mg/dL High 0.5-0.9 [facility] Comment on above: Performed By: #### U RTPRT #### [facility] [address] [place], [place] [id number] Medical Claims Processor: Placido Pierce MD #### MG, RENP, UA #### [facility] [address] [place], [place] [phone] Medical Claims Processor: Emily George MD GFR/1.73 sq M.predicted among non-blacks MDRD (S/P/Bld) [Vol rate/Area] 57 mL/min/{1.73_m2} Low >60 [facility] Comment on above: Result Comment: [...] secretion. Performed By: #### U RTPRT #### [address] [id number] Medical Claims Processor: Placido Pierce MD #### MG, RENP, UA #### [facility] [address] [place], [place] [phone] Medical Claims Processor: Emily George MD Glucose [Mass/Vol] 152 mg/dL High 70-99 [facility] Comment on above: Performed By: #### U RTPRT #### [address] [id number] Medical Claims Processor: Placido Pierce MD #### MG, RENP, UA #### [facility] [address] [place], [place] [id number] Medical Claims Processor: Emily George MD Potassium [Moles/Vol] 3.6 mmol/L Low 3.7-5.3 [facility] Comment on above: Performed By: #### U RTPRT #### [address] [id number] Medical Claims Processor: Placido Pierce MD #### MG, RENP, UA #### [facility] [address] [place], [place] [id number] Medical Claims Processor: Emily George MD Protein [Mass/Vol] 7.5 g/dL Normal 6.4-8.3 [facility] Comment on above: Performed By: #### U RTPRT #### [address] [phone] Medical Claims Processor: Placido Pierce MD #### MG, RENP, UA #### [facility] [address] [place], [place] [id number] Medical Claims Processor: Emily George MD Sodium [Moles/Vol] 136 mmol/L Normal 135-144 [facility] Comment on above: Performed By: #### U RTPRT #### [address] [place] [address] Medical Claims Processor: Placido Pierce MD #### MG, RENP, UA #### [facility] [address] [place], [place] [id number] Medical Claims Processor: Emily George MD Urea nitrogen [Mass/Vol] 25 mg/dL High 6-20 [facility] Comment on above: Performed By: #### U RTPRT #### [address] [address] Medical Claims Processor: Placido Pierce MD #### MG, RENP, UA #### [facility] [address] [place], [place] [phone] Medical Claims Processor: Emily George MD Hemoglobin A1Con 01-29-2024 Glucose [Mass/Vol] 123 mg/dL Normal [facility] Comment on above: Result Comment: The ADA and AACC recommend providing the estimated average glucose result to permit better patient understanding of their HBA1c result. Performed By: #### U RTPRT #### [address] [id number] Medical Claims Processor: Placido Pierce MD #### MG, RENP, UA #### [facility] [address] [place], [place] [id number] Medical Claims Processor: Emily George MD HbA1c (Bld) [Mass fraction] 5.9 % Normal 4.0-6.0 [facility] Comment on above: Performed By: #### U RTPRT #### [address] [address] Medical Claims Processor: Placido Pierce MD #### MG, RENP, UA #### [facility] [address] [place] [address] Medical Claims Processor: Emily George MD LDL Chol, Directon LDL Chol, Direct 114 mg/dL Normal [facility] Comment on above: Performed By: #### U RTPRT #### [address] [address] Medical Claims Processor: Placido Pierce MD #### MG, MOREP, UA #### [facility] [address] [place], [place] [id number] Medical Claims Processor: Emily George MD Lipid Profileon 01-29-2024 Cholesterol [Mass/Vol] 190 mg/dL Normal 0-199 [facility] Comment on above: Result Comment: Cholesterol Guidelines: <200 Desirable 200-240 Borderline >240 Undesirable Performed By: #### U RTPRT #### [address] [id number] Medical Claims Processor: Placido Pierce MD #### MGMOREP, UA #### [facility] [address] [place], [place] [id number] Medical Claims Processor: Emily George MD Cholesterol in HDL [Mass/Vol] 30 mg/dL Low >40 [facility] Comment on above: Result Comment: HDL Guidelines: <40 Undesirable 40-59 Borderline >59 Desirable Performed By: #### U RTPRT #### [address] [address] Medical Claims Processor: Placido Pierce MD #### MG, RENP, UA #### [facility] [address] [place], [place] [id number] Medical Claims Processor: Emily George MD Cholesterol,LDL Can not be calculated Normal 0-100 [facility] Comment on above: Result Comment: LDL Guidelines: <100 Desirable 100-129 Near to/above Desirable 130-159 Borderline >159 Undesirable Direct (measured) LDL and calculated LDL are not interchangeable tests. Performed By: #### U RTPRT #### [address], [place] [id number] Medical Claims Processor: Placido Pierce MD #### MG, RENP, UA #### [facility] [address] [place], [place] [id number] Medical Claims Processor: Emily George MD Cholesterol,VLDL Can not be calculated Normal [facility] Comment on above: Performed By: #### U RTPRT #### [address] [place] [address] Medical Claims Processor: Placido Pierce MD #### MG, RENP, UA #### [facility] [address] [place], [place] [id number] Medical Claims Processor: Emily George MD Cholesterol.total/Chol esterol in HDL [Mass ratio] 6.0 {ratio} Normal [facility] Comment on above: Performed By: #### U RTPRT #### [address] [address] Medical Claims Processor: Placido Pierce MD #### MG RENP, UA #### [facility] [address] [place], [place] [phone] Medical Claims Processor: Emily George MD Triglyceride [Mass/Vol] 443 mg/dL High <150 [facility] Comment on above: Result Comment: Triglyceride Guidelines: <150 Desirable 150-199 Borderline 200-499 High >499 Very high Based on AHA Guidelines for fasting triglyceride, July 2012. Performed By: #### U RTPRT #### [address] [address] Medical Claims Processor: Placido Pierce MD #### MG, RENP, UA #### [facility] [address] [place], [place] [phone] Medical Claims Processor: Emily George MD Patient fasting?on 4 Patient fasting? YES Normal [facility] Comment on above: Performed By: #### U RTPRT #### [facility] [address] [place], [place] [phone] Medical Claims Processor: Placido Pierce MD #### BENJI SPENCER UA #### [facility] [address] [place], [place] [id number] Medical Claims Processor: Emily George MD TSH w/reflex to FT4on 2023 Thyroid Stim. Horm. 1.77 uIU/mL Normal 0.30-5.00 [facility] Comment on above: Performed By: #### U RTPRT #### [facility] [address] [place], [place] [id number] Medical Claims Processor: Placido Pierce MD #### BENJI SPENCER, UA #### [facility] [address] [place] [address] Medical Claims Processor: Emily George MD Lipid Panelon 06-15-2023 Cholesterol [Mass/Vol] 174 mg/dL NINF - 200 mg/dL [facility] Comment on above: Cholesterol Guidelines: <200 Desirable 200-240 Borderline >240 Undesirable Cholesterol in HDL [Mass/Vol] 30 mg/dL Low 40 - PINF mg/dL [facility] Comment on above: HDL Guidelines: <40 Undesirable 40-59 Borderline >59 Desirable Cholesterol in LDL [Mass/Vol] 77 mg/dL 0 - 130 mg/dL [facility] Comment on above: LDL Guidelines: <100 Desirable 100-129 Near to/above Desirable 130-159 Borderline >159 Undesirable Direct (measured) LDL and calculated LDL are not interchangeable tests. Cholesterol.total/Chol esterol in HDL [Mass ratio] 5.8 {ratio} High NINF - 5 [facility] Interpretation and review of laboratory results Abnormal [facility] Triglyceride [Mass/Vol] 334 mg/dL High NINF - 150 mg/dL [facility] Comment on above: Triglyceride Guidelines: <150 Desirable 150-199 Borderline 200-499 High >499 Very high Based on AHA Guidelines for fasting triglyceride, July 2012. [facility] BUN & Creatinineon Creatinine [Mass/Vol] 1.08 mg/dL High 0.50 - 0.90 mg/dL [facility] GFR/1.73 sq M.predicted MDRD (S/P/Bld) [Vol rate/Area] - PINF [facility] Comment on above: These results [...] 21 mg/dL High 6 - 20 mg/dL [facility] CBC with Auto Differentialon 02-05-2023 Absolute Eos # 0.10 [place] [facility] Absolute [place] # 0.50 [facility] Basophils (Bld) [#/Vol] 0.00 10*3/uL [facility] Basophils/100 WBC (Bld) 1 % 0 - 2 % [facility] Differential Type YES [facility] Eosinophils/100 WBC (Bld) 1 % 0 - 5 % [facility] Hematocrit (Bld) [Volume fraction] 36.2 % 36 - 46 % [facility] Hemoglobin (Bld) [Mass/Vol] 12.2 g/dL 12.0 - 16.0 g/dL [facility] Interpretation and review of laboratory results Abnormal [facility] Lymphocytes/100 WBC (Bld) 23 % 15 - 40 % [facility] MCH (RBC) [Entitic mass] 28.7 pg 26 - 34 pg [facility] MCHC (RBC) [Mass/Vol] 33.7 g/dL 31 - 37 g/dL B [facility] MCV (RBC) [Entitic vol] 85.3 fL 80 - 100 fL [facility] Monocytes/100 WBC (Bld) 7 % 4 - 8 % [facility] Platelet distribution width (Bld) [Ratio] 18.1 % High 12.1 - 15.2 % [facility] Platelets (Bld) [#/Vol] 150 10*3/uL [facility] RBC (Bld) [#/Vol] 4.25 10*6/uL 4.0 - 5.2 m/uL [facility] Segmented neutrophils/100 WBC (Bld) 68 % 47 - 75 % [facility] Segs Absolute 5.30 [facility] WBC (Bld) [#/Vol] 7.6 10*3/uL [facility] Chlorideon 02-05-2023 Chloride [Moles/Vol] 99 mmol/L 98 - 10 7 mmol/L [facility] Glucose, Randomon 02-05-2023 Glucose [Mass/Vol] 107 mg/dL High 70 - 99 mg/dL [facility] No Panel Informationon 02-05 Interpretation and review of laboratory results Abnormal [facility] Potassiumon 02-05-2023 Potassium [Moles/Vol] 4.6 mmol/L 3.7 - 5.3 mmol/L [facility] Sodiumon 02-05-2023 Sodium [Moles/Vol] 134 mmol/L Low 135 - 144 mmol/L [facility] Wet Prep, Genitalon 02-06-20 Interpretation and review of laboratory results Abnormal [facility] Microorganism or agent identified Nom (Unsp spec) FEW WBC Abnormal [facility] Microorganism or agent identified Nom (Unsp spec) MODERATE EPITHELIAL CELLS Abnormal [facility] Microorganism or agent identified Nom (Unsp spec) MODERATE BACTERIA Abnormal [facility] Microorganism or agent identified Nom (Unsp spec) NO TRICHOMONAS SEEN [facility] Microorganism or agent identified Nom (Unsp spec) NO FUNGAL ELEMENTS SEEN [facility] Microorganism or agent identified Nom (Unsp spec) NO CLUECELL SEEN [facility] Specimen Description .[facility] CT FOOT LT WO CONon 02-05-20 23 [...] by: EMILY ELY Date: 2023-02-04 20:14 Normal [facility] XR ANKLE LEFT 3+ VIEWS (ABDOULAYE GALVAN)on [...] on ThuJan 06, 2023 6:11:26 PM EDT [facility] Comment on above: Order Comment: Injur y/Trauma or Illness?:Injury/Trauma How long have you had these symptoms (acute/chronic)?:Acute Reason for exam?:left lateral ankle pain History of cancer?: Surgeries, chemotherapy, or radiation?: Type of Exam?:Initial Mechanism of injury?:rolled ankle 4 days ago Radiology Outside Office Design Assistant yon 08-21-2022 Radiology Outside Office Copy [id number]:[id number] Normal [facility] MRI FOOT LEFT W WO CONTRASTo n 06-25-2022 Combined with the accompanying radiographs, 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 [facility] EXAM: MRI FOOT LEFT W WO [...] No nonenhancing abscess pockets are identified. [facility] Mike Villavicencio MD - 06/25/2022 EXAM: MRI FOOT LEFT [...] fragmentation of the navicular and cuneiform bones. [employer] Phone: Radiology Study observation (narrative) [employer] Phone: MRI FOOT LEFT W WO CONTRASTO rdered By: Mike Villavicencio on 06-25-2022 [employer] Phone: XR FOOT LEFT (2 VIEWS)on There is a linear metallic foreign body projecting between the second and third metatarsals. There is also a metallic foreign body within the lower leg. There is fragmentation of the navicular as well as of all 3 cuneiforms. The appearance is consistent with the patient's history of neuropathy. [facility] EXAM: XR FOOT LEFT (2 VIEWS) HISTORY: M79.5. The patient is a 42-year-old female. Evaluate for foreign body. COMPARISON: None. [facility] Mike Villavicencio MD - 06/25/2022 EXAM: [...] consistent with the patient's history of neuropathy. 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 Clinical follow up recommended. Subcentimeter highly suspicious nodule in the right thyroid lobe 7 mm in greatest dimension. This meets criteria for annual follow up for 5 years. It does not meet criteria for FNA. [facility] EXAM: US HEAD NECK SOFT TISSUE [...] without shadowing, suggestive of a lipoma. [facility] Micky Lauren Jr., MD - 05/27/2022 [...] It does not meet criteria for FNA. [employer] Work Phone: Radiology Study observation (narrative) [facility] [employer] Work Phone: US HEAD NECK SOFT TISSUE THY ROIDOrdered By: Micky Lauren on 05-27-2022 [facility] Work Phone: Rejection Notificationon Reason see below Normal [place] [facility] Comment on above: Result Comment: Unab le to perform testing; no specimen received. To perform testing the specimen will need to be recollected. No spec Performed By: #### R EJEC #### [facility] [address] [facility] [address] Rejected Test CXURN Normal [facility] Comment on above: Performed By: #### R EJEC #### [facility] [address] [facility] [address] LDL Cholesterol, [employer] Cholesterol in LDL [Mass/Vol] 84 mg/dL <100 [facility] CBC with Auto Differentialon 04-12-2022 Absolute Eos # 0.10 [place] [facility] [employer] Absolute Lymph # 1.40 [facility] [employer] Absolute Atlantic # 0.30 [facility] [employer] Basophils (Bld) [#/Vol] 0.00 10*3/uL [facility] Basophils/100 WBC (Bld) 1 % 0 - 2 % [facility] [employer] Differential Type YES [facility] [employer] Eosinophils/100 WBC (Bld) 1 % 0 - 5 % [facility] [employer] [facility] [employer] Hematocrit (Bld) [Volume fraction] 35.7 % Low 36 - 46 % [facility] [employer] Hemoglobin (Bld) [Mass/Vol] 12.0 g/dL 12.0 - 16.0 g/dL [facility] [employer] Interpretation and review of laboratory results Abnormal [facility] [employer] Lymphocytes/100 WBC (Bld) 25 % 15 - 40 % [facility] MCH (RBC) [Entitic mass] 28.0 pg 26 - 34 pg [facility] MCHC (RBC) [Mass/Vol] 33.7 g/dL 31 - 37 g/dL B ON [facility] MCV (RBC) [Entitic vol] 83.3 fL 80 - 100 fL [facility] Monocytes/100 WBC (Bld) 5 % 4 - 8 % [facility] Platelet distribution width (Bld) [Ratio] 16.4 % High 12.1 - 15.2 % [facility] Platelets (Bld) [#/Vol] 168 10*3/uL [facility] RBC (Bld) [#/Vol] 4.29 10*6/uL 4.0 - 5.2 m/uL [facility] Segmented neutrophils/100 WBC (Bld) 68 % 47 - 75 % [facility] Segs Absolute 3.90 [facility] WBC (Bld) [#/Vol] 5.7 10*3/uL [facility] Comprehensive Metabolic Pane lyn 04-12-2022 Albumin [Mass/Vol] 4.2 g/dL 3.5 - 5.2 g/dL [facility] ALP (Bld) [Catalytic activity/Vol] 88 U/L 35 - 104 U/L [facility] ALT [Catalytic activity/Vol] 29 U/L 5 - 33 U/L [facility] Anion gap [Moles/Vol] 11 mmol/L 9 - 17 mmol/L [facility] AST [Catalytic activity/Vol] 27 U/L <32 [facility] Bilirubin [Mass/Vol] 0.65 mg/dL 0.30 - 1.20 mg/dL [facility] Calcium [Mass/Vol] 9.1 mg/dL 8.6 - 10. 4 mg/dL [facility] Chloride [Moles/Vol] 101 mmol/L 98 - 10 7 mmol/L [facility] CO2 [Moles/Vol] 28 mmol/L 20 - 31 mmol/L [facility] Creatinine [Mass/Vol] 1.04 mg/dL High 0.50 - 0.90 mg/dL [facility] Free PSA/Total PSA [Mass fraction] 6.8 g/dL 6.4 - 8.3 g/dL [facility] GFR >60 >60 mL/min [facility] GFR Non- 58 mL/min Low >60 [facility] GFR/1.73 sq M.predicted MDRD (S/P/Bld) [Vol rate/Area] [facility] Comment on above: Average GFR for 40-4 9 years old: 99 mL/min/1.73sq m Chronic Kidney Disease: <60 mL/min/1.73sq m Kidney failure: <15 mL/min/1.73sq m eGFR calculated using average adult body mass. Additional eGFR calculator available at: http://www.Introhive/multiple_crcl_2012.htm Glucose [Mass/Vol] 103 mg/dL High 70 - 99 mg/dL [facility] Interpretation and review of laboratory results Abnormal [facility] Potassium [Moles/Vol] 3.9 mmol/L 3.7 - 5.3 mmol/L [facility] Sodium [Moles/Vol] 140 mmol/L 135 - 144 mmol/L [facility] Urea nitrogen (BldV) [Mass/Vol] 13 mg/dL 6 - 20 mg/dL [facility] Urea nitrogen/Creatinine (Bld) [Mass ratio] 13 [facility] HIV Screenon 04-12-2022 HIV Ag/Ab Non-Reactive NONREACTIVE [facility] Comment on above: No laboratory eviden ce of HIV infection. If acute HIV infection is suspected, consider testing for HIV-1 RNA. [facility] Lipid Panelon 04-12-2022 Cholesterol [Mass/Vol] 184 mg/dL <200 [facility] Comment on above: Cholesterol Guidelines: <200 Desirable 200-240 Borderline >240 Undesirable Cholesterol in HDL [Mass/Vol] 30 mg/dL Low >40 [facility] Comment on above: HDL Guidelines: <40 Undesirable 40-59 Borderline >59 Desirable Cholesterol.total/Chol esterol in HDL [Mass ratio] 6.1 {ratio} High <5 [facility] Interpretation and review of laboratory results Abnormal [facility] LDL Cholesterol 0 - 130 mg/dL [facility] Comment on above: Calculation not jacqueline d for Triglyceride value greater than 400 mg/dL. Direct LDL reflexed LDL Guidelines: <100 Desirable 100-129 Near to/above Desirable 130-159 Borderline >159 Undesirable Direct (measured) LDL and calculated LDL are not interchangeable tests. Triglyceride [Mass/Vol] 460 mg/dL High <150 [facility] Comment on above: Triglyceride Guidelines: <150 Desirable 150-199 Borderline 200-499 High >499 Very high Based on AHA Guidelines for fasting triglyceride, July 2012. [facility] ER[facility]Y No Panel Informationon 04-12 [facility] TSH with Reflexon 04-12-2022 TSH Qn 0.99 m[IU]/L [facility] Urinalysis with MicroscopicO rdered By: Lita Weeks on 08-01-2021 - [employer] Work Phone: Amorphous, UA NOT REPORTED None [facility] Work Phone: Bacteria, UA RARE Abnormal None [employer] Work Phone: Bilirubin Urine Negative NEGATIVE [facility] Work Phone: Casts UA NOT REPORTED /LPF [employer] Work Phone: Color, UA Yellow Yellow [facility] Work Phone: Crystals, UA NOT REPORTED None /HPF [facility] Work Phone: Epithelial Cells UA 2 TO 5 /HPF [employer] Work Phone: Glucose, Ur Negative NEGATIVE [employer] Work Phone: Interpretation and review of laboratory results Abnormal [employer] Work Phone: Ketones Ql (U) Negative NEGATIVE [employer] Work Phone: Leukocyte esterase Test strip Ql (U) Negative NEGATIVE [employer] Work Phone: Mucus, UA NOT REPORTED None [employer] Work Phone: Nitrite, Urine Negative NEGATIVE [facility] Work Phone: Other Observations UA NOT REPORTED NOT REQ. M [facility] [employer] Work Phone: pH, UA 6.0 [facility] [employer] Work Phone: Protein, UA Negative NEGATIVE [facility] [employer] Work Phone: RBC, UA NOT REPORTED [facility] [employer] Work Phone: Renal Epithelial, UA NOT REPORTED 0 /HPF [facility] [employer] Work Phone: Specific [place], UA 1.020 [facility] [employer] Work Phone: Trichomonas, UA NOT REPORTED None [facility] Work Phone: Turbidity UA Clear Clear [facility] [employer] Work Phone: Urinalysis Comments [facility] [employer] Work Phone: Urine Hgb Negative NEGATIVE [facility] [employer] Work Phone: Urobilinogen, Urine Normal Normal [facility] [employer] Work Phone: WBC, UA NOT REPORTED 0 /HPF [facility] [employer] Work Phone: Yeast, UA NOT REPORTED None [facility] [employer] Work Phone: [facility] [employer] Work Phone: Urinalysis with MicroscopicO rdered By: Lita Weeks on 07-11-2021 - [facility] Work Phone: Amorphous, UA NOT REPORTED None [facility] Work Phone: Bacteria, UA 3+ Abnormal None [facility] Work Phone: Bilirubin Urine Negative NEGATIVE [facility] Work Phone: Casts UA NOT REPORTED /LPF [facility] [employer] Work Phone: Color, UA Yellow Yellow [facility] [employer] Work Phone: Crystals, UA NOT REPORTED None /HPF [facility] [employer] Work Phone: Epithelial Cells UA 2 TO 5 /HPF [facility] [employer] Work Phone: Glucose, Ur Negative NEGATIVE [facility] [employer] Work Phone: Interpretation and review of laboratory results Abnormal [facility] [employer] Work Phone: Ketones Ql (U) Negative NEGATIVE [facility] Work Phone: Leukocyte esterase Test strip Ql (U) 2+ Abnormal NEGATIVE [facility] [employer] Work Phone: Mucus, UA NOT REPORTED None [facility] [employer] Work Phone: Nitrite, Urine Positive Abnormal NEGATIVE [facility] Work Phone: Other Observations UA NOT REPORTED NOT REQ. M [facility] [employer] Work Phone: pH, UA 6.0 [facility] [employer] Work Phone: Protein, UA Negative NEGATIVE [facility] [employer] Work Phone: RBC, UA NOT REPORTED [facility] [employer] Work Phone: Renal Epithelial, UA NOT REPORTED 0 /HPF [facility] [employer] Work Phone: Specific [place], UA 1.025 [facility] [employer] Work Phone: Trichomonas, UA NOT REPORTED None [facility] Work Phone: Turbidity UA Hazy Abnormal Clear [facility] [employer] Work Phone: Urinalysis Comments [facility] Work Phone: Urine Hgb Negative NEGATIVE [facility] [employer] Work Phone: Urobilinogen, Urine Normal Normal [facility] [employer] Work Phone: WBC, UA 20 TO 50 0 /HPF [facility] [employer] Work Phone: Yeast, UA NOT REPORTED None [facility] Work Phone: [facility] [employer] Work Phone: AlbuminOrdered By: Gregory stevens on 05-20-2021 Albumin [Mass/Vol] 4.2 g/dL 3.5 - 5.2 g/dL [email or web address] Phone: BUN & CreatinineOrdered By: Gregory Forbes on 05-20-2021 Creatinine [Mass/Vol] 1.18 mg/dL High 0.50 - 0.90 mg/dL [email or web address] Phone: GFR >60 >60 mL/min [employer] Phone: GFR Non- 50 mL/min Low >60 [email or web address] Phone: GFR/1.73 sq M.predicted MDRD (S/P/Bld) [Vol rate/Area] [email or web address] Phone: Comment on above: Average GFR for 40-4 9 years old: 99 mL/min/1.73sq m Chronic Kidney Disease: <60 mL/min/1.73sq m Kidney failure: <15 mL/min/1.73sq m eGFR calculated using average adult body mass. Additional eGFR calculator available at: http://www.Introhive/multiple_crcl_2012.htm GFR/1.73 sq M.predicted MDRD (S/P/Bld) [Vol rate/Area] NOT REPORTED [email or web address] Phone: Interpretation and review of laboratory results Abnormal [email or web address] Phone: Urea nitrogen (BldV) [Mass/Vol] 19 mg/dL 6 - 20 mg/dL [email or web address] Phone: CalciumOrdered By: Gregory stevens on 05-20-2021 Calcium [Mass/Vol] 9.2 mg/dL 8.6 - 10. 4 mg/dL [email or web address] Phone: Electrolyte PanelOrdered By: Gregory Forbes on 05-20-2021 Anion gap [Moles/Vol] 10 mmol/L 9 - 17 mmol/L [email or web address] Phone: Chloride [Moles/Vol] 103 mmol/L 98 - 10 7 mmol/L [facility] Work Phone: CO2 [Moles/Vol] 25 mmol/L 20 - 31 mmol/L [facility] Work Phone: Potassium [Moles/Vol] 4.2 mmol/L 3.7 - 5.3 mmol/L [facility] Work Phone: Sodium [Moles/Vol] 138 mmol/L 135 - 144 mmol/L [facility] Work Phone: MagnesiumOrdered By: Gregory high on 05-20-2021 Magnesium [Mass/Vol] 2.2 mg/dL 1.6 - 2 .6 mg/dL [facility] Phone: No Panel InformationOrdered By: Gregory Forbes on 05-20-2021 [facility] Work Phone: PhosphorusOrdered By: Gregory Forbes on 05-20-2021 Phosphate [Mass/Vol] 3.7 mg/dL 2.6 - 4 .5 mg/dL [facility] Work Phone: UrinalysisOrdered By: Gregory Forbes on 05-20-2021 Bilirubin Urine Negative NEGATIVE [facility] Work Phone: Color, UA YELLOW YELLOW [facility] Work Phone: Glucose, Ur Negative NEGATIVE [facility] Work Phone: Interpretation and review of laboratory results Abnormal [facility] Work Phone: Ketones Ql (U) Negative NEGATIVE [facility] Work Phone: Leukocyte esterase Test strip Ql (U) Negative NEGATIVE [facility] Work Phone: Nitrite, Urine Negative NEGATIVE [facility] Work Phone: pH, UA 5.0 [facility] Work Phone: Protein, UA TRACE Abnormal NEGATIVE [email or web address] Phone: Specific [place], UA 1.020 [employer] Phone: Turbidity UA CLEAR CLEAR [email or web address] Phone: Urinalysis Comments [email or web address] Phone: Urine Hgb Negative NEGATIVE [email or web address] Phone: Urobilinogen, Urine Normal Normal [email or web address] Phone: [email or web address] Phone: COVID-19Ordered By: Pattie smith on 01-22-2021 SARS-CoV-2 (COVID-19) RNA SHARMIN+probe Ql (Unsp spec) [email or web address] Phone: SARS-CoV-2 (COVID-19) RNA SHARMIN+probe Ql (Unsp spec) Not detected Not Detected [email or web address] Phone: Comment on above: The specimen is NEGATIVE for SARS-CoV-2, the novel coronavirus associated with COVID-19. A negative result does not rule out COVID-19. Twin SARS-CoV-2 for use on the [employer] is a real-time RT-PCR test intended [...] this assay. Fact sheet for Healthcare Providers: https://www.fda.gov/media/487271/download Fact sheet for Patients: https://www.fda.gov/media/738250/download METHODOLOGY: RT-PCR Source .THROAT [email or web address] Phone: COVID-19, PCRon 11-15-2020 SARS-CoV-2, Rapid Not Detected Not Detected [facility] [employer] Phone: Comment on above: Rapid NAAT: The [...] management decisions. Fact sheet for Healthcare Providers: https://www.fda.gov/media/109524/download Fact sheet for Patients: https://www.fda.gov/media/675968/download Methodology: Isothermal Nucleic Acid Amplification Source .THROAT [facility] [employer] Phone: Otheron 11-15-2020 SARS-CoV-2 [facility] [employer] Phone: CBC Auto Differentialon - Basophils (Bld) [#/Vol] 0.10 10*3/uL [place] Basophils/100 WBC (Bld) 1 % 0 - 2 % [place] Differential Type YES [place] Eosinophils (Bld) [#/Vol] 0.10 10*3/uL [place] Eosinophils/100 WBC (Bld) 1 % 0 - 5 % [place] Erythrocyte distribution width (RBC) [Ratio] 16.3 % High 12.1 - 15.2 % [place] Hematocrit (Bld) [Volume fraction] 36.5 % 36 - 46 % [place] Hemoglobin (Bld) [Mass/Vol] 12.5 g/dL 12 - 16 g/dL [place] Interpretation and review of laboratory results Abnormal [place] Lymphocytes (Bld) [#/Vol] 1.90 10*3/uL [place] Lymphocytes/100 WBC (Bld) 25 % 15 - 40 % [place] MCH (RBC) [Entitic mass] 28.8 pg 26 - 34 pg [place] MCHC (RBC) [Mass/Vol] 34.3 g/dL 31 - 37 g/dL [place] MCV (RBC) [Entitic vol] 84.0 fL 80 - 100 fL [place] Monocytes (Bld) [#/Vol] 0.40 10*3/uL [place] Monocytes/100 WBC (Bld) 5 % 4 - 8 % [place] Platelet mean volume (Bld) [Entitic vol] NOT REPORTED 6 - 12 fL [place] Platelets (Bld) [#/Vol] 167 10*3/uL [place] Platelets (Bld) [#/Vol] NOT REPORTED [place] RBC (Bld) [#/Vol] 4.35 10*6/uL 4 - 5.2 m/uL [place] RBC morphology finding Nom (Bld) NOT REPORTED [place] Segmented neutrophils/100 WBC (Bld) 68 % 47 - 75 % [place] Segs Absolute 5.40 [place] WBC (Bld) [#/Vol] 7.8 10*3/uL [place] WBC (Bld) [#/Vol] NOT REPORTED per 100 WBC [place] WBC Morphology NOT REPORTED [place] Comprehensive Metabolic Pane l w/ Reflex to MGon 09-16-2020 Albumin [Mass/Vol] 4.4 g/dL 3.5 - 5.2 g/dL [place] Albumin/Globulin [Mass ratio] NOT REPORTED [place] ALP [Catalytic activity/Vol] 117 U/L High 35 - 104 U/L [place] ALT [Catalytic activity/Vol] 41 U/L High 5 - 33 U/L [place] Anion gap [Moles/Vol] 10 mmol/L 9 - 17 mmol/L [place] AST [Catalytic activity/Vol] 39 U/L High <32 [place] Bilirubin Ql (U) 0.52 mg/dL 0.3 - 1.2 mg/dL [place] Bun/Cre Ratio 11 [place] Calcium [Mass/Vol] 9.0 mg/dL 8.6 - 10. 4 mg/dL [place] Chloride [Moles/Vol] 101 mmol/L 98 - 10 7 mmol/L [place] CO2 [Moles/Vol] 26 mmol/L 20 - 31 mmol/L [place] Creatinine [Mass/Vol] 1.32 mg/dL High 0.5 - 0.9 mg/dL [place] GFR 54 mL/min Low >60 [place] GFR Non- 44 mL/min Low >60 [place] GFR/1.73 sq M predicted among non-blacks MDRD (S/P/Bld) [Vol rate/Area] [place] Comment on above: Average GFR for 40-4 9 years old: 99 mL/min/1.73sq m Chronic Kidney Disease: <60 mL/min/1.73sq m Kidney failure: <15 mL/min/1.73sq m eGFR calculated using average adult body mass. Additional eGFR calculator available at: http://www.WorldEscape.OrderBorder/multiple_crcl_2012.htm GFR/1.73 sq M predicted among non-blacks MDRD (S/P/Bld) [Vol rate/Area] NOT REPORTED [place] Glucose [Mass/Vol] 173 mg/dL High 70 - 99 mg/dL [place] Interpretation and review of laboratory results Abnormal [place] Potassium [Moles/Vol] 3.9 mmol/L 3.7 - 5.3 mmol/L [place] Protein [Mass/Vol] 7.3 g/dL 6.4 - 8.3 g/dL [place] Sodium [Moles/Vol] 137 mmol/L 135 - 144 mmol/L [place] Urea nitrogen [Mass/Vol] 15 mg/dL 6 - 20 mg/dL [place] Otheron 09-16-2020 Immature granulocytes (Bld) [#/Vol] NOT REPORTED [place] Sedimentation Rateon 020 Sed Rate 15 mm 0 - 20 mm [place] Urinalysis, reflex to micros copicon 09-16-2020 Bilirubin Urine Negative NEGATIVE [place] Color, UA YELLOW YELLOW [place] Glucose, Ur Negative NEGATIVE [place] Interpretation and review of laboratory results Abnormal [place] Ketones Ql (U) Negative NEGATIVE [place] Leukocyte esterase Test strip Ql (U) Negative NEGATIVE [place] Nitrite, Urine Negative NEGATIVE [place] pH, UA 5.0 [place] Protein (U) [Mass/Vol] TRACE Abnormal NEGATIVE [place], [place] Specific [place], UA 1.025 [place] Turbidity UA CLEAR CLEAR [place] Urinalysis Comments [place] Urine Hgb Negative NEGATIVE [place] Urobilinogen, Urine Normal Normal [place] C-Reactive Proteinon 020 CRP [Mass/Vol] 6 mg/L High 0 - 5 mg/L [place] Interpretation and review of laboratory results Abnormal [place] CBC With Auto Differentialon 08-24-2020 Basophils (Bld) [#/Vol] 0.00 10*3/uL [place] Basophils/100 WBC (Bld) 1 % 0 - 2 % [place] Differential Type YES [place] Eosinophils (Bld) [#/Vol] 0.10 10*3/uL [place] Eosinophils/100 WBC (Bld) 1 % 0 - 5 % [place] Erythrocyte distribution width (RBC) [Ratio] 16.2 % High 12.1 - 15.2 % [place] Hematocrit (Bld) [Volume fraction] 35.4 % Low 36 - 46 % [place] Hemoglobin (Bld) [Mass/Vol] 12.2 g/dL 12 - 16 g/dL [place] Interpretation and review of laboratory results Abnormal [place] Lymphocytes (Bld) [#/Vol] 1.60 10*3/uL [place] Lymphocytes/100 WBC (Bld) 28 % 15 - 40 % [place] MCH (RBC) [Entitic mass] 29.1 pg 26 - 34 pg [place] MCHC (RBC) [Mass/Vol] 34.5 g/dL 31 - 37 g/dL [place] MCV (RBC) [Entitic vol] 84.2 fL 80 - 100 fL [place] Monocytes (Bld) [#/Vol] 0.40 10*3/uL [place] Monocytes/100 WBC (Bld) 6 % 4 - 8 % [place] Platelet mean volume (Bld) [Entitic vol] NOT REPORTED 6 - 12 fL [place] Platelets (Bld) [#/Vol] 160 10*3/uL [place] Platelets (Bld) [#/Vol] NOT REPORTED [place] RBC (Bld) [#/Vol] 4.20 10*6/uL 4 - 5.2 m/uL [place] RBC morphology finding Nom (Bld) NOT REPORTED [place] Segmented neutrophils/100 WBC (Bld) 64 % 47 - 75 % [place] Segs Absolute 3.80 [place] WBC (Bld) [#/Vol] 5.8 10*3/uL [place] WBC (Bld) [#/Vol] NOT REPORTED per 100 WBC [place] WBC Morphology NOT REPORTED [place] Otheron 08-24-2020 Immature granulocytes (Bld) [#/Vol] NOT REPORTED 0 % [place] Sedimentation Rateon 020 Sed Rate 10 mm 0 - 20 mm [place] C-Reactive Proteinon 020 CRP [Mass/Vol] 2 mg/L 0 - 5 mg/L [place] CBC With Auto Differentialon 07-24-2020 Basophils (Bld) [#/Vol] 0.10 10*3/uL [place] Basophils/100 WBC (Bld) 1 % 0 - 2 % [place] Differential Type YES [place] Eosinophils (Bld) [#/Vol] 0.10 10*3/uL [place] Eosinophils/100 WBC (Bld) 1 % 0 - 5 % [place] Erythrocyte distribution width (RBC) [Ratio] 16.8 % High 12.1 - 15.2 % [place] Hematocrit (Bld) [Volume fraction] 40.0 % 36 - 46 % [place] Hemoglobin (Bld) [Mass/Vol] 13.5 g/dL 12 - 16 g/dL [place] Interpretation and review of laboratory results Abnormal [place] Lymphocytes (Bld) [#/Vol] 1.70 10*3/uL [place] Lymphocytes/100 WBC (Bld) 17 % 15 - 40 % [place] MCH (RBC) [Entitic mass] 29.1 pg 26 - 34 pg [place] MCHC (RBC) [Mass/Vol] 33.8 g/dL 31 - 37 g/dL [place] MCV (RBC) [Entitic vol] 86.0 fL 80 - 100 fL [place] Monocytes (Bld) [#/Vol] 0.50 10*3/uL [place] Monocytes/100 WBC (Bld) 5 % 4 - 8 % [place] Platelet mean volume (Bld) [Entitic vol] NOT REPORTED 6 - 12 fL [place] Platelets (Bld) [#/Vol] NOT REPORTED [place] Platelets (Bld) [#/Vol] 208 10*3/uL [place] RBC (Bld) [#/Vol] 4.65 10*6/uL 4 - 5.2 m/uL [place] RBC morphology finding Nom (Bld) NOT REPORTED [place] Segmented neutrophils/100 WBC (Bld) 76 % High 47 - 75 % [place] Segs Absolute 7.70 [place] WBC (Bld) [#/Vol] NOT REPORTED per 100 WBC [place] WBC (Bld) [#/Vol] 10.0 10*3/uL [place] WBC Morphology NOT REPORTED [place] Otheron 07-24-2020 Immature granulocytes (Bld) [#/Vol] NOT REPORTED 0 % [place] Sedimentation Rateon 020 Sed Rate 6 mm 0 - 20 mm [place] Protein / creatinine ratio, urineon 06-07-2020 Creatinine, Ur 101.2 mg/dL 28 - 217 mg/dL [place] Protein (U) [Mass/Vol] 8 mg/dL [place] Comment on above: No normal range esta blished. Urine Total Protein Creatinine Ratio 0.08 [place] Urinalysison 06-07-2020 Bilirubin Urine Negative NEGATIVE [place] Color, UA YELLOW YELLOW [place] Glucose, Ur 100 mg/dL Abnormal NEGATIVE [place] Interpretation and review of laboratory results Abnormal [place] Ketones Ql (U) Negative NEGATIVE [place] Leukocyte esterase Test strip Ql (U) Negative NEGATIVE [place] Nitrite, Urine Negative NEGATIVE [place] pH, UA 6.0 [place] Protein (U) [Mass/Vol] Negative NEGATIVE [place] Specific [place], UA 1.020 [place] Turbidity UA CLEAR CLEAR [place] Urinalysis Comments [place] Urine Hgb Negative NEGATIVE [place] Urobilinogen, Urine Normal Normal [place] Comprehensive Metabolic Pane lyn 05-25-2020 Albumin [Mass/Vol] 4.4 g/dL 3.5 - 5.2 g/dL [place] Albumin/Globulin [Mass ratio] NOT REPORTED [place] ALP [Catalytic activity/Vol] 87 U/L 35 - 104 U/L [place] ALT [Catalytic activity/Vol] 21 U/L 5 - 33 U/L [place] Anion gap [Moles/Vol] 10 mmol/L 9 - 17 mmol/L [place] AST [Catalytic activity/Vol] 22 U/L <32 [place] Bilirubin Ql (U) 0.32 mg/dL 0.3 - 1.2 mg/dL [place] Bun/Cre Ratio 18 [place] Calcium [Mass/Vol] 10.1 mg/dL 8.6 - 10. 4 mg/dL [place] Chloride [Moles/Vol] 104 mmol/L 98 - 10 7 mmol/L [place] CO2 [Moles/Vol] 26 mmol/L 20 - 31 mmol/L [place] Creatinine [Mass/Vol] 1.37 mg/dL High 0.5 - 0.9 mg/dL [place] GFR 52 mL/min Low >60 [place] GFR Non- 43 mL/min Low >60 [place] GFR/1.73 sq M predicted among non-blacks MDRD (S/P/Bld) [Vol rate/Area] NOT REPORTED [place] GFR/1.73 sq M predicted among non-blacks MDRD (S/P/Bld) [Vol rate/Area] [place] Comment on above: Average GFR for 40-4 9 years old: 99 mL/min/1.73sq m Chronic Kidney Disease: <60 mL/min/1.73sq m Kidney failure: <15 mL/min/1.73sq m eGFR calculated using average adult body mass. Additional eGFR calculator available at: http://www.WorldEscape.OrderBorder/multiple_crcl_2012.htm Glucose [Mass/Vol] 160 mg/dL High 70 - 99 mg/dL [place], [place] Interpretation and review of laboratory results Abnormal [place] Potassium [Moles/Vol] 4.6 mmol/L 3.7 - 5.3 mmol/L [place] Protein [Mass/Vol] 7.4 g/dL 6.4 - 8.3 g/dL [place] Sodium [Moles/Vol] 140 mmol/L 135 - 144 mmol/L [place] Urea nitrogen [Mass/Vol] 24 mg/dL High 6 - 20 mg/dL [place] Hemoglobin A1Con 05-25-2020 Glucose [Mass/Vol] 123 mg/dL [place] Comment on above: The ADA and AACC rec ommend providing the estimated average glucose result to permit better patient understanding of their HBA1c result. HbA1c (Bld) [Mass fraction] 5.9 % 4 - 6 % [place] LDL Cholesterol, Directon Cholesterol in LDL [Mass/Vol] 58 mg/dL <100 [place] Lipid Panelon 05-25-2020 Cholesterol [Mass/Vol] 194 mg/dL <200 [place] Comment on above: Cholesterol Guidelines: <200 Desirable 200-240 Borderline >240 Undesirable Cholesterol in HDL [Mass/Vol] 27 mg/dL Low >40 [place] Comment on above: HDL Guidelines: <40 Undesirable 40-59 Borderline >59 Desirable Cholesterol in LDL [Mass/Vol] 0 - 130 mg/dL [place] Comment on above: Calculation not jacqueline d for Triglyceride value greater than 400 mg/dL. Direct LDL reflexed LDL Guidelines: <100 Desirable 100-129 Near to/above Desirable 130-159 Borderline >159 Undesirable Direct (measured) LDL and calculated LDL are not interchangeable tests. Cholesterol in VLDL [Mass/Vol] NOT REPORTED 1 - 30 mg/dL [place] Cholesterol.total/Chol esterol in HDL [Mass ratio] 7.2 {ratio} High <5 [place] Interpretation and review of laboratory results Abnormal [place] Triglyceride [Mass/Vol] 1112 mg/dL High <150 [place] Comment on above: Triglyceride Guidelines: <150 Desirable 150-199 Borderline 200-499 High >499 Very high Based on AHA Guidelines for fasting triglyceride, July 2012. Patient Fasting?on 0 Patient Fasting? YES [facility] TIFF Vitamin D 25 Hydroxyon 05-25 Vit D, 25-Hydroxy 30.2 ng/mL 30 - 100 ng/mL [place] Comment on above: Reference Range: Vitamin D status Range Deficiency <20 ng/mL Mild Deficiency 20-30 ng/mL Sufficiency 30-100 ng/mL Toxicity >100 ng/mL C-Reactive Proteinon 020 CRP [Mass/Vol] 6.2 mg/L High 0 - 5 mg/L [place] Interpretation and review of laboratory results Abnormal [place] Hemoglobin [id number] By: Kevin Allen on 09-24-2019 Glucose [Mass/Vol] 108 mg/dL [email or web address] Phone: Comment on above: The ADA and AACC rec ommend providing the estimated average glucose result to permit better patient understanding of their HBA1c result. HbA1c (Bld) [Mass fraction] 5.4 % 4.8 - 5.9 % [email or web address] Phone: Homocysteine, SerumOrdered B y: Janel Allen on 09-24-2019 Homocysteine 9 umol/L <15.0 [email or web address] Phone: TSH without ReflexOrdered By : Janel Allen on 09-24-2019 TSH Qn 1.03 m[IU]/L [email or web address] Phone: Vitamin B12 & FolateOrdered By: Janel Allen on 09-24-2019 Cobalamin (Vitamin B12) [Mass/Vol] 292 pg/mL 232 - 1245 pg/mL [email or web address] Phone: Folate 13.8 ng/mL >4.8 [email or web address] Phone: XR CERVICAL SPINE (4-5 VIEWS )on 07-29-2019 Mild degenerative changes cervical spine not unusual for age. Refer to the [facility] 02/03/2019 with some of the findings discussed above. [place] EXAM: XR CERVICAL SPINE (4-5 VIEWS) [...] Swimmer's lateral view shows no additional abnormality. [place], [place] Lior, pn Incoming Radiant Results From [employer] - 07/29/2019 10:05 AM EDT EXAM: XR [...] not unusual for age. Refer to the [facility] services 02/03/2019 with some of the findings discussed above. [place] C-Reactive ProteinOrdered By : Azalea Knight on 07-28-2019 CRP [Mass/Vol] 6.4 mg/L High 0 - 5 mg/L [place] Interpretation and review of laboratory results Abnormal [place] CBC With Auto DifferentialOr dered By: Azalea Knight on 07-28-2019 Absolute Eos # 0.10 [place], [place] Absolute Immature Granulocyte NOT REPORTED [place] Absolute Lymph # 2.10 [place], [place] Absolute Atlantic # 0.50 [facility] Dante [place] Basophils (Bld) [#/Vol] 0.00 10*3/uL [place] Basophils/100 WBC (Bld) 1 % 0 - 2 % [place] Differential Type YES [place] Eosinophils/100 WBC (Bld) 1 % 0 - 5 % [place] Erythrocyte distribution width (RBC) [Ratio] 14.5 % 12.1 - 15.2 % [place] Hematocrit (Bld) [Volume fraction] 38.1 % 36 - 46 % [place] Hemoglobin (Bld) [Mass/Vol] 12.9 g/dL 12 - 16 g/dL [place] Immature Granulocytes NOT REPORTED 0 % [place] Lymphocytes/100 WBC (Bld) 34 % 15 - 40 % [place] MCH (RBC) [Entitic mass] 29.5 pg 26 - 34 pg [place] MCHC (RBC) [Mass/Vol] 33.9 g/dL 31 - 37 g/dL [place], [place] MCV (RBC) [Entitic vol] 87.1 fL 80 - 100 fL [place] Monocytes/100 WBC (Bld) 8 % 4 - 8 % [place] MPV NOT REPORTED 6 - 12 fL [place], [place] NRBC Automated NOT REPORTED per 100 WBC [place] Platelet Estimate NOT REPORTED [place] Platelets (Bld) [#/Vol] 222 10*3/uL [place] RBC (Bld) [#/Vol] 4.38 10*6/uL 4 - 5.2 m/uL [place] RBC morphology finding Nom (Bld) NOT REPORTED [place] Segmented neutrophils/100 WBC (Bld) 56 % 47 - 75 % [place] Segs Absolute 3.50 [place], [place] WBC (Bld) [#/Vol] 6.2 10*3/uL [place] WBC Morphology NOT REPORTED [place] Sedimentation RateOrdered By : Azalea Knight on 07-28-2019 Sed Rate 19 mm 0 - 30 mm [place] C-Reactive Proteinon 019 CRP [Mass/Vol] 7.3 mg/L High 0 - 5 mg/L [place] Interpretation and review of laboratory results Abnormal [place] Albuminon 06-17-2019 Albumin [Mass/Vol] 4.3 g/dL 3.5 - 5.2 g/dL [place] BUN & Creatinineon 9 Creatinine [Mass/Vol] 1.27 mg/dL High 0.5 - 0.9 mg/dL [place] GFR 56 mL/min Low >60 [place], [place] GFR Non- 47 mL/min Low >60 [place] GFR/1.73 sq M predicted among non-blacks MDRD (S/P/Bld) [Vol rate/Area] NOT REPORTED [place] GFR/1.73 sq M predicted among non-blacks MDRD (S/P/Bld) [Vol rate/Area] [place] Comment on above: Average GFR for 40-4 9 years old: 99 mL/min/1.73sq m Chronic Kidney Disease: <60 mL/min/1.73sq m Kidney failure: <15 mL/min/1.73sq m eGFR calculated using average adult body mass. Additional eGFR calculator available at: http://www.WorldEscape.OrderBorder/multiple_crcl_2012.htm Interpretation and review of laboratory results Abnormal [place] Urea nitrogen [Mass/Vol] 18 mg/dL 6 - 20 mg/dL [place] Calciumon 06-17-2019 Calcium [Mass/Vol] 10.4 mg/dL 8.6 - 10. 4 mg/dL [place] Electrolyte Panelon 06-17-20 19 Anion gap [Moles/Vol] 13 mmol/L 9 - 17 mmol/L [place] Chloride [Moles/Vol] 103 mmol/L 98 - 10 7 mmol/L [place] CO2 [Moles/Vol] 24 mmol/L 20 - 31 mmol/L [place] Potassium [Moles/Vol] 3.8 mmol/L 3.7 - 5.3 mmol/L [place] Sodium [Moles/Vol] 140 mmol/L 135 - 144 mmol/L [place] Hemoglobin and Hematocrit, B loodon 06-17-2019 Hematocrit (Bld) [Volume fraction] 35.4 % Low 36 - 46 % [place] Hemoglobin (Bld) [Mass/Vol] 12.1 g/dL 12 - 16 g/dL [place] Interpretation and review of laboratory results Abnormal [place] Magnesiumon 06-17-2019 Magnesium [Mass/Vol] 2.3 mg/dL 1.6 - 2 .6 mg/dL [place] Microscopic Urinalysison Amorphous, UA NOT REPORTED None [place], [place] Bacteria, UA 1+ Abnormal None [place], [place] Casts UA NOT REPORTED /LPF [place] Crystals UA NOT REPORTED None /HPF [place] Epithelial Cells UA 2 TO 5 /HPF [place] Interpretation and review of laboratory results Abnormal [place] Mucus, UA NOT REPORTED None [place] Other Observations UA NOT REPORTED NOT REQ. M [place] RBC (U) [#/Vol] NOT REPORTED [place] Renal Epithelial, Urine NOT REPORTED 0 /HPF [place] Trichomonas, UA NOT REPORTED None [place] WBC, UA 0 TO 2 0 /HPF [place] Yeast, UA NOT REPORTED None [place], [place] - [place] Phosphoruson 06-17-2019 Phosphate [Mass/Vol] 3.0 mg/dL 2.6 - 4 .5 mg/dL [place] Protein / creatinine ratio, urineon 06-17-2019 Creatinine, Ur 228.2 mg/dL High 28 - 217 mg/dL [place] Interpretation and review of laboratory results Abnormal [place] Protein (U) [Mass/Vol] 18 mg/dL [place], [place] Comment on above: No normal range esta blished. Urine Total Protein Creatinine Ratio 0.08 [place] Sedimentation Rateon 019 Sed Rate 24 mm 0 - 30 mm [place] Urinalysison 06-17-2019 Bilirubin Urine Negative NEGATIVE [place] Color, UA YELLOW YELLOW [place] Glucose, Ur Negative NEGATIVE [place] Interpretation and review of laboratory results Abnormal [place] Ketones Ql (U) Negative NEGATIVE [place], [place] Leukocyte esterase Test strip Ql (U) Negative NEGATIVE [place] Nitrite, Urine Negative NEGATIVE [place] pH, UA 6.0 [place] Protein (U) [Mass/Vol] TRACE Abnormal NEGATIVE [place], [place] Specific [place], UA 1.025 [place], [place] Turbidity UA HAZY Abnormal CLEAR [place] Urinalysis Comments [place] Urine Hgb Negative NEGATIVE [place] Urobilinogen, Urine Normal Normal [place] MR CERVICAL SPINE WITHOUT CO NTRASTon [...] or cord edema. /cdr Workstation ID: [id number] [facility] EXAMINATION: MR CERVICAL SPINE WITHOUT CONTRAST [...] creating probable mild left-sided neural foraminal stenosis. [facility], Rad In [employer] - 02/03/2019 11:02 [...] be due to myelomalacia or cord edema. /[facility] Workstation ID: [id number] [facility] MR CERVICAL SPINE WITHOUT CONTRAST EXAMINATION: [...] on ThuFebruary 03, 2019 10:59:35 AM EDT [facility] Comment on above: Order Comment: Reaso [...] GROWTH 48 DAYS Report Status FINAL 10/11/2018 [facility] Comment on above: Performed By: #### T FIOR #### [facility] [address] [place] [id number] Cult,Mycobacteria Specimen Description .SPINE .TISSUE T4 LAMINA Special Requests NOT REPORTED Direct Exam NO ACID FAST BACILLI SEEN (DIRECT SMEAR) Culture NO GROWTH 48 DAYS Report Status FINAL 10/11/2018 [facility] Comment on above: Performed By: #### L ACWB #### [facility] [address] [place] [address] Cult,Funguson 09-27-2018 Cult,Fungus Specimen Description .TISSUE EPIDURAL TISSUE Special Requests NOT REPORTED Culture NO GROWTH 34 DAYS Report Status FINAL 09/27/2018 Normal [facility] Comment on above: Performed By: #### L ACWB #### [facility] [place] [address] Cult,Fungus Specimen Description .SPINE .TISSUE T4 LAMINA Special Requests NOT REPORTED Culture NO GROWTH 34 DAYS Report Status FINAL 09/27/2018 Normal [facility] Comment on above: Performed By: #### L ACWB #### [facility] [employer] [address] [place] [id number] BUNon 09-23-2018 Urea nitrogen mass conc 20 mg/dL Normal 03-27 [facility] Comment on above: Performed By: #### 2 [id number] ####[facility] SqeQqhq1308 [place] [address] Creatinineon 09-23-2018 Creatinine mass conc 1.3 mg/dL High 0.5-1.1 [facility] Comment on above: Performed By: #### 2 [id number] ####[facility] Cmpsmmwc2719 [place] [address] eGFRon 09-23-2018 eGFR AA 54 mL/min/1.73 m2 [facility] Comment on above: Order Comment: Order added by Discern Expert. Performed By: #### 2 [id number] ####[facility] Ndrtajrr9811 [place] [address] GFR/1.73 sq M predicted among non-blacks MDRD vol rate/area (S/P/Bld) 45 mL/min/1.73 m2 [facility] Comment on above: Order Comment: Order added by Discern Expert. Performed By: #### 2 [id number] ####[facility] Ijewiduc6874 [place] [address] Auto Diffon 09-20-2018 Basophils Auto #/vol (Bld) 0.0 E3/mcL Normal 0.0-0.2 [facility] Comment on above: Order Comment: Order Added by Discern Expert. Performed By: #### 2 [id number] ####[facility] [address] [place] [address] Basophils/100 WBC Auto (Bld) 1.1 % Normal 0.0-2.0 [facility] Comment on above: Order Comment: Order Added by Discern Expert. Performed By: #### 2 [id number] ####[facility] [address] [place] [address] Eos Absolute 0.0 E3/mcL Normal 0.0-0.7 [facility] Comment on above: Order Comment: Order Added by Discern Expert. Performed By: #### 2 [id number] ####[facility] [address] [place] [address] Eosinophils/100 WBC Auto (Bld) 0.3 % Normal 0.0-11.0 [facility] Comment on above: Order Comment: Order Added by Discern Expert. Performed By: #### 2 [id number] ####OVID[facility] AvalosTyyQymt2516 [place] [address] Lymphocytes Auto #/vol (Bld) 1.2 E3/mcL Normal 1.2-3.4 [facility] Comment on above: Order Comment: Order Added by Discern Expert. Performed By: #### 2 [id number] ####[facility] [address] [place] [address] Lymphocytes/100 WBC Auto (Bld) 30.6 % Normal 20.0-55.0 [facility] Comment on above: Order Comment: Order Added by Discern Expert. Performed By: #### 2 [id number] ####OVIDIO A[address]osRbyCqzd7479 [place] [address] Atlantic Absolute 0.4 E3/mcL Normal 0.0-0.7 [facility] Comment on above: Order Comment: Order Added by Discern Expert. Performed By: #### 2 [id number] ####OVIDIO A[address]osWbnTyyd3079 [place] [address] Monocytes/100 WBC Auto (Bld) 10.2 % High 0.0-10.0 [facility] Comment on above: Order Comment: Order Added by Discern Expert. Performed By: #### 2 [id number] ####OVIDIO A[address]osZzlRuvv4515 [place] [address] Neutro Absolute 2.3 E3/mcL Normal 1.4-6.5 [facility] Comment on above: Order Comment: Order Added by Discern Expert. Performed By: #### 2 [id number] ####OVID[facility] [address] [place] [address] Neutro Auto 57.8 % Normal 37.0-75.0 [facility] Comment on above: Order Comment: Order Added by Discern Expert. Performed By: #### 2 [id number] ####OVID[facility] [address] [place] [address] CBC w/ Auto Diffon 8 Erythrocyte distribution width Auto Ratio (RBC) 19.9 % High 11.5-14.5 [facility] Comment on above: Performed By: #### 2 [id number] ####OVIDIO [address] [place] [id number] Hematocrit Auto Volume Fraction (Bld) 26.5 % Low 36.0-48.0 [facility] Comment on above: Performed By: #### 2 [id number] ####OVID[facility] [address] [place] [address] Hemoglobin mass conc (Bld) 8.7 g/dL Low 12.0-16.0 [facility] Comment on above: Performed By: #### 2 [id number] ####OVID[facility] [address] [place] [address] MCH Auto Entitic mass (RBC) 29.6 pg Normal 27.0-31.0 [facility] Comment on above: Performed By: #### 2 [id number] ####OVIDIO [address]djYahl[address]151 [place] [address] MCHC Auto mass conc (RBC) 32.9 g/dL Low 33.0-37.0 [facility] Comment on above: Performed By: #### 2 [id number] ####OVIDIO [address] [place] [address] MCV Auto Entitic volume (RBC) 89.8 fL Normal 78.0-100.0 [facility] Comment on above: Performed By: #### 2 [id number] ####OVIDIO KyoWbem3098 [place] [address] Platelet mean volume Auto Entitic volume (Bld) 10.5 fL Normal 7.4-11.0 [facility] Comment on above: Performed By: #### 2 [id number] ####OVIDIO ThwMwev9396 [place] [address] Platelets Auto #/vol (Bld) 117 E3/mcL Low 130-400 [facility] Comment on above: Performed By: #### 2 [id number] ####OVIDIO FpvHwvn9014 [place] [address] RBC Auto #/vol (Bld) 2.95 E6/mcL Low 3.90-5.40 [facility] Comment on above: Performed By: #### 2 [id number] ####OVIDIO [address]VebKjrd7183 [place] [address] WBC Auto #/vol (Bld) 4.0 E3/mcL Normal 3.6-11.0 [facility] Comment on above: Performed By: #### 2 [id number] ####OVIDIO PutNppb7297 [place] [address] CRPon 09-20-2018 CRP mass conc 0.83 mg/dL Normal 0.00-1.00 [facility] Comment on above: Performed By: #### 2 [id number] ####OVIDIO [address]osIteLmll9474 [place] [address] Morphon 09-20-2018 Anisocytosis Auto Ql (Bld) 1+ Normal [facility] Comment on above: Order Comment: Order Added by Discern Expert. Performed By: #### 1 [id number] ####OVIDIO BdmIakx9716 [place] [address] Hypochromasia 1+ Normal [facility] Comment on above: Order Comment: Order Added by Discern Expert. Performed By: #### 1 [id number] ####OVIDIO GleKycc4364 [place] [address] RBC morphology finding Nom (Bld) SEE MORPHOLOGY Normal [facility] Comment on above: Order Comment: Order Added by Discern Expert. Performed By: #### 1 [id number] ####OVIDIO BayJevc2287 [place] [address] Sed Rate Automatedon 018 Sed Rate Automated 15 mm/hr Normal [facility] Comment on above: Result Comment: AGE- SPECIFIC REFERENCE RANGES FOR SEDIMENTATION RATE AUTOMATED REFERENCE RANGE - MM/HR AGE MEN WOMEN 0-2 0-2 - PUBERTY 3-13 3-13 PUBERTY - 50 YRS 0-15 0-20 > 50 YRS 0-20 0-30 Performed By: #### 1 [id number] ####OVD[facility] Hematology Manual Ahggyxxddx7516 [place] [address] zzplt morphon 09-20-2018 Platelet morphology finding Nom (Bld) NORMAL Normal [facility] Comment on above: Performed By: #### 9 [id number] ####OVIDIO ZibTivs6872 [place] [address] Platelets Auto #/vol (Bld) NORMAL Normal [facility] Comment on above: Performed By: #### 9 [id number] ####OVIDIO DmhCrfg3034 [place] [address] BLOOD UREA NITROGENon 2017 Urea nitrogen mass conc (Bld) 19 mg/dL Normal 7-20 [facility] Comment on above: Performed By: #### A CBC, ESR, BUN, CREAT, CREACT, FX ####Testing performed at [address] [address] C REACTIVE PROTEINon 018 CRP mass conc 18.5 mg/L High 0-10.0 [facility] Comment on above: Performed By: #### A CBC, ESR, BUN, CREAT, CREACT, FX ####Testing performed at [address] [address] CBCon 09-13-2018 ABSOLUTE BAS 0.1 X10 Normal [facility] Comment on above: Performed By: #### A CBC, ESR, BUN, CREAT, CREACT, FX ####Testing performed at [address] [address] ABSOLUTE EOS 0.20 X10 Normal [facility] Comment on above: Performed By: #### A CBC, ESR, BUN, CREAT, CREACT, FX ####Testing performed at [address] [address] ABSOLUTE NEUTROPHIL COUNT 2.5 x10 Normal 1.0-7.0 [facility] Comment on above: Performed By: #### A CBC, ESR, BUN, CREAT, CREACT, FX ####Testing performed at [address] [address] Basophils/100 WBC Auto (Bld) 1.4 % Normal 0.0-2.0 [facility] Comment on above: Performed By: #### A CBC, ESR, BUN, CREAT, CREACT, FX ####Testing performed at [address] [address] DTYPE AUTO DIFF Normal [facility] Comment on above: Performed By: #### A CBC, ESR, BUN, CREAT, CREACT, FX ####Testing performed at [address] [address] Eosinophils/100 WBC Auto (Bld) 3.5 % Normal 0.0-11.0 [facility] Comment on above: Performed By: #### A CBC, ESR, BUN, CREAT, CREACT, FX ####Testing performed at [address] [address] Lymphocytes Auto #/vol (Bld) 1.10 X10 Normal [facility] Comment on above: Performed By: #### A CBC, ESR, BUN, CREAT, CREACT, FX ####Testing performed at [address] [address] Lymphocytes/100 WBC Auto (Bld) 27.0 % Normal 20.0-55.0 [facility] Comment on above: Performed By: #### A CBC, ESR, BUN, CREAT, CREACT, FX ####Testing performed at [address] [address] Monocytes Auto #/vol (Bld) 0.4 X10 Normal [facility] Comment on above: Performed By: #### A CBC, ESR, BUN, CREAT, CREACT, FX ####Testing performed at [place] [id number] Monocytes/100 WBC Auto (Bld) 9.4 % Normal 0.0-10.0 [facility] Comment on above: Performed By: #### A CBC, ESR, BUN, CREAT, CREACT, FX ####[place] [address] Neutrophils/100 WBC Auto (Bld) 58.7 % Normal 37.0-75.0 [facility] Comment on above: Performed By: #### A CBC, ESR, BUN, CREAT, CREACT, FX ####[place] [address] Erythrocyte distribution width Auto Ratio (RBC) 17.6 % High 11.5-14.5 [facility] Comment on above: Performed By: #### A CBC, ESR, BUN, CREAT, CREACT, FX ####[place] [address] Hematocrit Auto Volume Fraction (Bld) 26.2 % Low 36.0-48.0 [facility] Comment on above: Performed By: #### A CBC, ESR, BUN, CREAT, CREACT, FX ####[place] [address] Hemoglobin mass conc (Bld) 8.8 g/dL Low 12.0-16.0 [facility] Comment on above: Performed By: #### A CBC, ESR, BUN, CREAT, CREACT, FX ####[place] [address] MCH Auto Entitic mass (RBC) 29.3 pg Normal 26.0-35.0 [facility] Comment on above: Performed By: #### A CBC, ESR, BUN, CREAT, CREACT, FX ####Testing performed at [place] [id number] MCHC Auto mass conc (RBC) 33.7 g/dL Normal 27.0-37.0 [facility] Comment on above: Performed By: #### A CBC, ESR, BUN, CREAT, CREACT, FX ####[place] [address] MCV Auto Entitic volume (RBC) 86.9 fL Normal 80.0-100.0 [facility] Comment on above: Performed By: #### A CBC, ESR, BUN, CREAT, CREACT, FX ####[place] [address] Platelet mean volume Auto Entitic volume (Bld) 10.1 fL Normal 7.4-11.0 [facility] Comment on above: Performed By: #### A CBC, ESR, BUN, CREAT, CREACT, FX ####[place] [address] Platelets Auto #/vol (Bld) 130 /cmm Normal 130.0-400.0 [facility] Comment on above: Performed By: #### A CBC, ESR, BUN, CREAT, CREACT, FX ####[place] [address] RBC Auto #/vol (Bld) 3.01 /cmm Low 4.0-5.4 [facility] Comment on above: Performed By: #### A CBC, ESR, BUN, CREAT, CREACT, FX ####[place] [address] WBC Auto #/vol (Bld) 4.2 /cmm Normal 3.6-11.0 [facility] Comment on above: Performed By: #### A CBC, ESR, BUN, CREAT, CREACT, FX ####[place] [address] CREATININE,SERUMon 8 Creatinine mass conc 1.5 mg/dL High 0.52-1.04 [facility] Comment on above: Performed By: #### A CBC, ESR, BUN, CREAT, CREACT, FX ####[place] [address] EST. GFR, 50 ml/min/1.73sq.m Normal [facility] Comment on above: Performed By: #### A CBC, ESR, BUN, CREAT, CREACT, FX ####Testing performed at [place] [id number] EST. GFR,Non 41 ml/min/1.73sq.m [facility] Comment on above: Performed By: #### A CBC, ESR, BUN, CREAT, CREACT, FX ####[place] [address] GFR/1.73 sq M predicted among non-blacks MDRD vol rate/area (S/P/Bld) Average GFR for 30-39 years old = 109. [facility] Comment on above: Result Comment: [employer] vasu Kidney disease, GFR = <60.Kidney failure, GFR = <15.The GFR estimate is not adjusted for extreme body surface area or acute process, nor has it been validated for women or ethnic groups other than and . Performed By: #### A CBC, ESR, BUN, CREAT, CREACT, FX ####[place] [address] ESRon 09-13-2018 ESR Velocity (Bld) 49 mm/h High 0-15 [facility] Comment on above: Performed By: #### A CBC, ESR, BUN, CREAT, CREACT, FX ####Testing performed at [place] [id number] FAX REQUESTon 09-13-2018 FAX TO FAX TO DR HARTMAN AT [phone] AND TO [facility] AT [phone] [facility] Comment on above: Performed By: #### P HY, BUN, CREAT, FX ####Testing performed at [address] [address] FAX REQUESTon 09-06-2018 FAX TO [phone] [facility] Comment on above: Performed By: #### F X ####Testing performed at [address] [address] BLOOD UREA NITROGENon 2017 Urea nitrogen mass conc (Bld) 21 mg/dL High 7-20 [facility] Comment on above: Performed By: #### P HY, BUN, CREAT, FX ####[place] [address] CREATININE,SERUMon 8 Creatinine mass conc 1.4 mg/dL High 0.52-1.04 [facility] Comment on above: Performed By: #### P HY, BUN, CREAT, FX ####[place] [address] EST. GFR, 54 ml/min/1.73sq.m [facility] Comment on above: Performed By: #### P HY, BUN, CREAT, FX ####[place] [address] EST. GFR,Non 44 ml/min/1.73sq.m [facility] Comment on above: Performed By: #### P HY, BUN, CREAT, FX ####[place] [address] GFR/1.73 sq M predicted among non-blacks MDRD vol rate/area (S/P/Bld) Average GFR for 30-39 years old = 109. [facility] Comment on above: Result Comment: Punch Press Setter vasu Kidney disease, GFR = <60.Kidney failure, GFR = <15.The GFR estimate is not adjusted for extreme body surface area or acute process, nor has it been validated for women or ethnic groups other than and . Performed By: #### P HY, BUN, CREAT, FX ####[place] [address] FAX REQUESTon 08-31-2018 FAX TO [phone] [facility] Comment on above: Performed By: #### P HY, BUN, CREAT, FX ####Testing performed at [place] [id number] GAL MELISA PHYSICIANmateo 08-31-20 18 GAL NEW PHYSICIAN DEVAN UP [facility] Comment on above: Performed By: #### P HY, BUN, CREAT, FX ####Testing performed at [facility] [place] [address] BUNon 08-27-2018 Urea nitrogen mass conc 24 mg/dL High 03-27 [facility] Comment on above: Performed By: #### 2 [id number] ####[facility] [id number] [place] [address] Creatinineon 08-27-2018 Creatinine mass conc 1.6 mg/dL High 0.5-1.1 [facility] Comment on above: Performed By: #### 2 [id number] ####OVID[employer] [id number] [place] [address] eGFRon 08-27-2018 eGFR AA 43 mL/min/1.73 m2 [facility] Comment on above: Order Comment: Order added by Discern Expert. Performed By: #### 1 [id number] ####[facility] [id number] [place] [address] GFR/1.73 sq M predicted among non-blacks MDRD vol rate/area (S/P/Bld) 36 mL/min/1.73 m2 [facility] Comment on above: Order Comment: Order added by Discern Expert. Performed By: #### 1 [id number] ####[facility] [id number] [place] [address] Cult,Tissueon 08-26-2018 Cult,Tissue Specimen Description .TISSUE EPIDURAL [...] Trimethoprim/Sulfa <=10 SUSCEPTIBLE Vancomycin <=0.5 SUSCEPTIBLE Normal [facility] Comment on above: Performed By: #### L ACWB #### [facility] [address] [place] [address] Cult,Tissue Specimen Description .SPINE .TISSUE T4 LAMINA [...] Trimethoprim/Sulfa <=10 SUSCEPTIBLE Vancomycin <=0.5 SUSCEPTIBLE Normal [facility] Comment on above: Performed By: #### L ACWB #### [address] [address] Basic Metabolic Profon 08-25 (cont.) Normal [facility] Comment on above: Result Comment: Aver age GFR for 30-39 years old: 107 mL/min/1.73sq m Chronic Kidney Disease: <60 mL/min/1.73sq m Kidney failure: <15 mL/min/1.73sq m eGFR calculated using average adult body mass. Additional eGFR calculator available at: http://www.WorldEscape.OrderBorder/multiple_crcl_2012.htm Performed By: #### L ACWB #### [facility] [address] [place] [address] Anion gap molar conc 14 mmol/L Normal 9-17 [facility] Comment on above: Performed By: #### L ACWB #### [facility] [address] [place] [address] Calcium mass conc 9.1 mg/dL Normal 8.6-10.4 [facility] Comment on above: Performed By: #### L ACWB #### [facility] [address] [place] [address] Chloride molar conc 96 mmol/L Low 98-107 [facility] Comment on above: Performed By: #### L ACWB #### [address] [address] CO2 molar conc 23 mmol/L Normal 20-31 [facility] Comment on above: Performed By: #### L ACWB #### [facility] [address] [place] [address] Creatinine mass conc 1.52 mg/dL High 0.50-0.90 [facility] Comment on above: Performed By: #### L ACWB #### [facility] [address] [place] [address] GFR, Amer 46 mL/min Low >60 [facility] Comment on above: Performed By: #### L ACWB #### [facility] [address] [place] [address] GFR,non Amer 38 mL/min Low >60 [facility] Comment on above: Performed By: #### L ACWB #### [facility] [address] [place] [address] Glucose mass conc 95 mg/dL Normal 70-99 [facility] Comment on above: Performed By: #### L ACWB #### [facility] [address] [place] [address] Potassium molar conc 4.5 mmol/L Normal 3.7-5.3 [facility] Comment on above: Performed By: #### L ACWB #### [address] [address] Sodium molar conc 133 mmol/L Low 135-144 [facility] Comment on above: Performed By: #### L ACWB #### [facility] [address] [place] [address] Urea nitrogen mass conc 43 mg/dL High 6-20 [facility] Comment on above: Performed By: #### L ACWB #### [address] [address] BUN/CRE Ratio NOT REPORTED Normal 9-20 [facility] Comment on above: Performed By: #### L ACWB #### [address] [address] Staging: NOT REPORTED Normal [facility] Comment on above: Performed By: #### L ACWB #### [address] [address] CBC with Diffon 08-25-2018 Abs. Basophil 0.07 k/uL Normal 0.00-0.20 [facility] Comment on above: Performed By: #### L ACWB #### [address] [address] Abs.Imm.Granulocyte 0.08 k/uL Normal 0.00-0.30 [facility] Comment on above: Performed By: #### L ACWB #### [address] [address] Abs.Neutrophil (Seg) 5.77 k/uL Normal 1.50-8.10 [facility] Comment on above: Performed By: #### L ACWB #### [facility] [address] [place] [address] Basophils/100 WBC (Bld) 1 % Normal 0-2 [facility] Comment on above: Performed By: #### L ACWB #### [address] [address] Eosinophils #/vol (Bld) 0.12 10*3/uL Normal 0.00-0.44 [facility] Comment on above: Performed By: #### L ACWB #### [facility] [place] [address] Eosinophils/100 WBC (Bld) 1 % Normal 1-4 [facility] Comment on above: Performed By: #### L ACWB #### [address] [address] Immature granulocytes #/vol (Bld) 1 % High 0 [facility] Comment on above: Performed By: #### L ACWB #### [facility] [address] [place] [address] Lymphocytes #/vol (Bld) 1.83 10*3/uL Normal 1.10-3.70 [facility] Comment on above: Performed By: #### L ACWB #### [facility] [address] [place] [address] Lymphocytes/100 WBC (Bld) 21 % Low 24-43 [facility] Comment on above: Performed By: #### L ACWB #### [address] [address] Monocytes #/vol (Bld) 0.92 10*3/uL Normal 0.10-1.20 [facility] Comment on above: Performed By: #### L ACWB #### [facility] [address] [place] [address] Monocytes/100 WBC (Bld) 11 % Normal 3-12 [facility] Comment on above: Performed By: #### L ACWB #### [facility] [address] [place] [address] Neutrophil (Seg) 66 % High 36-65 [facility] Comment on above: Performed By: #### L ACWB #### [facility] [address] [place] [address] Erythrocyte distribution width Ratio (RBC) 14.6 % High 11.8-14.4 [facility] Comment on above: Performed By: #### L ACWB #### [address] [address] Hematocrit Volume Fraction (Bld) 32.6 % Low 36.3-47.1 [facility] Comment on above: Performed By: #### L ACWB #### [address] [address] Hemoglobin mass conc (Bld) 10.0 g/dL Low 11.9-15.1 [facility] Comment on above: Performed By: #### L ACWB #### [facility] [address] [place] [address] MCH Entitic mass (RBC) 28.2 pg Normal 25.2-33.5 [facility] Comment on above: Performed By: #### L ACWB #### [facility] [address] [place] [address] MCHC mass conc (RBC) 30.7 g/dL Normal 28.4-34.8 [facility] Comment on above: Performed By: #### L ACWB #### [address] [address] MCV Entitic volume (RBC) 91.8 fL Normal 82.6-102.9 [facility] Comment on above: Performed By: #### L ACWB #### [address] [address] NRBC Automated 0.0 per 100 WBC Normal 0.0 [facility] Comment on above: Performed By: #### L ACWB #### [facility] [address] [place] [address] Platelet mean volume Entitic volume (Bld) 10.4 fL Normal 8.1-13.5 [facility] Comment on above: Performed By: #### L ACWB #### [address] [address] Platelets #/vol (Bld) 292 10*3/uL Normal 138-453 [facility] Comment on above: Performed By: #### L ACWB #### [address] [address] RBC #/vol (Bld) 3.55 10*6/uL Low 3.95-5.11 [facility] Comment on above: Performed By: #### L ACWB #### [address] [address] RBC morphology finding Nom (Bld) ANISOCYTOSIS PRESENT Normal [facility] Comment on above: Performed By: #### L ACWB #### [address] [address] WBC #/vol (Bld) 8.8 10*3/uL Normal 3.5-11.3 [facility] Comment on above: Performed By: #### L ACWB #### [address] [address] Auto Diff Performed NOT REPORTED Normal [facility] Comment on above: Performed By: #### L ACWB #### [address] [address] Platelets #/vol (Bld) NOT REPORTED Normal [facility] Comment on above: Performed By: #### L ACWB #### [address] [address] WBC Morphology NOT REPORTED Normal [facility] Comment on above: Performed By: #### L ACWB #### [address] [id number] Fungi,Direct Examon 08-25-20 18 Fungi,Direct Exam Specimen Description .SPINE .TISSUE T4 LAMINA Special Requests NOT REPORTED Direct Exam NO FUNGAL ELEMENTS SEEN Report Status FINAL 08/25/2018 Normal [facility] Comment on above: Performed By: #### L ACWB #### [facility] [address] [place] [address] Magnesiumon 08-25-2018 Magnesium mass conc 2.4 mg/dL Normal 1.6-2.6 [facility] Comment on above: Performed By: #### L ACWB #### [facility] [address] [place], [place] [id number] Procalcitoninon 08-25-2018 Protein mass conc 0.13 ng/mL High <0.09 [facility] Comment on above: Result Comment: [...] entered into the Change in Procalcitonin Calculator (www.zfemuu-pru-vyxztwqsaj.com) to determine the patient's Mortality Risk Prognosis Performed By: #### L ACWB #### [facility] [address] [place], [place] [id number] Cult,Aerobe/Anaerobeon 08-24 Cult,Aerobe/Anaerobe Specimen Description .SPINE Special Requests NOT REPORTED Direct Exam DUPLICATE ORDER SEE RESULTS FOR TISSUE CULTURE Culture NOT REPORTED Report Status FINAL 08/24/2018 Normal [facility] Comment on above: Performed By: #### S PAG #### [facility] [address] [place] [address] Cult,Aerobe/Anaerobe Specimen Description .SPINE Special Requests NOT REPORTED Direct Exam DUPLICATE ORDER SEE RESUULTS FOR TISSUE CULTURE Culture NOT REPORTED Report Status FINAL 08/24/2018 Normal [facility] Comment on above: Performed By: #### S PAG #### [facility] [address] [place] [address] FLUORO FOR SURGICAL PROCEDUR ESon 08-24-2018 FLUORO FOR SURGICAL PROCEDURES Radiology exam is complete. No Radiologist dictation. Please follow up with ordering provider. Final result Normal [facility] OPERATIVE REPORTon 8 OPERATIVE REPORT [address] [address] OPERATIVE REPORT PATIENT NAME: CELINA GASPAR : 1980 MED REC NO: [id number] ROOM: 0431 ACCOUNT NO: [id number] ADMIT DATE: 08/15/2018 PROVIDER: Lita Mccray MD DATE OF PROCEDURE: 08/23/2018 SURGEON: Lita Mccray MD COAGULATING BATH MIXER: Eliel Larios DO PREOPERATIVE DIAGNOSIS: Epidural abscess, [...] satisfactory condition. LITA MCCRAY MD CAT/Beulah_SSNCK_I Doc#: [id number] CC: Lita Mccray MD [facility] Procalcitoninon 08-24-2018 Protein mass conc 0.16 ng/mL High <0.09 [facility] Comment on above: Result Comment: [...] entered into the Change in Procalcitonin Calculator (www.xdbvmc-lhe-lzqikhtirp.OrderBorder) to determine the patient's Mortality Risk Prognosis Performed By: #### S PAG #### [employer] [facility] [address] [place] [address] Basic Metab w/rfx MGon 08-23 (cont.) Normal [facility] Comment on above: Result Comment: Aver age GFR for 30-39 years old: 107 mL/min/1.73sq m Chronic Kidney Disease: <60 mL/min/1.73sq m Kidney failure: <15 mL/min/1.73sq m eGFR calculated using average adult body mass. Additional eGFR calculator available at: http://www.WorldEscape.OrderBorder/multiple_crcl_2012.htm Performed By: #### S PAG #### [employer] [address] [place] [address] Anion gap molar conc 14 mmol/L Normal 9-17 [facility] Comment on above: Performed By: #### S PAG #### [employer] [address] [place] [address] [place] [address] Calcium mass conc 9.9 mg/dL Normal 8.6-10.4 [facility] Comment on above: Performed By: #### S PAG #### [facility] [address] [place] [address] Chloride molar conc 99 mmol/L Normal 98-107 [facility] Comment on above: Performed By: #### S PAG #### [facility] [address] [place] [address] CO2 molar conc 26 mmol/L Normal 20-31 [facility] Comment on above: Performed By: #### S PAG #### [facility] [address] [place] [address] Creatinine mass conc 1.42 mg/dL High 0.50-0.90 [facility] Comment on above: Performed By: #### S PAG #### [facility] [address] [place] [address] GFR, Amer 50 mL/min Low >60 [facility] Comment on above: Performed By: #### S PAG #### [facility] [address] [place] [address] GFR,non Amer 41 mL/min Low >60 [facility] Comment on above: Performed By: #### S PAG #### [facility] [address] [place] [address] Glucose mass conc 95 mg/dL Normal 70-99 [facility] Comment on above: Performed By: #### S PAG #### [facility] [address] [place] [address] Potassium molar conc 4.9 mmol/L Normal 3.7-5.3 [facility] Comment on above: Result Comment: SPEC IMEN SLIGHTLY HEMOLYZED, RESULTS MAY BE ADVERSELY AFFECTED. Performed By: #### S PAG #### [address] [address] Sodium molar conc 139 mmol/L Normal 135-144 [facility] Comment on above: Performed By: #### S PAG #### [facility] [address] [place] [address] Urea nitrogen mass conc 31 mg/dL High 6-20 [facility] Comment on above: Performed By: #### S PAG #### [address] [address] BUN/CRE Ratio NOT REPORTED Normal - [facility] Comment on above: Performed By: #### S PAG #### [address] [address] Staging: NOT REPORTED Normal [facility] Comment on above: Performed By: #### S PAG #### [address] [address] CBC with Diffon 08-23-2018 Abs. Basophil 0.06 k/uL Normal 0.00-0.20 [facility] Comment on above: Performed By: #### S PAG #### [address] [address] Abs.Imm.Granulocyte 0.22 k/uL Normal 0.00-0.30 [facility] Comment on above: Performed By: #### S PAG #### [address] [address] Abs.Neutrophil (Seg) 4.43 k/uL Normal 1.50-8.10 [facility] Comment on above: Performed By: #### S PAG #### [address] [address] Basophils/100 WBC (Bld) 1 % Normal 0-2 [facility] Comment on above: Performed By: #### S PAG #### [address] [address] Eosinophils #/vol (Bld) 0.15 10*3/uL Normal 0.00-0.44 [facility] Comment on above: Performed By: #### S PAG #### [address] [address] Eosinophils/100 WBC (Bld) 2 % Normal 1-4 [facility] Comment on above: Performed By: #### S PAG #### [address] [address] Erythrocyte distribution width Ratio (RBC) 14.4 % Normal 11.8-14.4 [facility] Comment on above: Performed By: #### S PAG #### [address] [address] Hematocrit Volume Fraction (Bld) 33.2 % Low 36.3-47.1 [facility] Comment on above: Performed By: #### S PAG #### [address] [address] Hemoglobin mass conc (Bld) 10.4 g/dL Low 11.9-15.1 [facility] Comment on above: Performed By: #### S PAG #### [address] [address] Immature granulocytes #/vol (Bld) 3 % High 0 [facility] Comment on above: Performed By: #### S PAG #### [address] [address] Lymphocytes #/vol (Bld) 2.22 10*3/uL Normal 1.10-3.70 [facility] Comment on above: Performed By: #### S PAG #### [address] [address] Lymphocytes/100 WBC (Bld) 29 % Normal 24-43 [facility] Comment on above: Performed By: #### S PAG #### [address] [address] MCH Entitic mass (RBC) 27.7 pg Normal 25.2-33.5 [facility] Comment on above: Performed By: #### S PAG #### [address] [address] MCHC mass conc (RBC) 31.3 g/dL Normal 28.4-34.8 [facility] Comment on above: Performed By: #### S PAG #### [address] [address] MCV Entitic volume (RBC) 88.3 fL Normal 82.6-102.9 [facility] Comment on above: Performed By: #### S PAG #### [address] [address] Monocytes #/vol (Bld) 0.63 10*3/uL Normal 0.10-1.20 [facility] Comment on above: Performed By: #### S PAG #### [address] [address] Monocytes/100 WBC (Bld) 8 % Normal 3-12 [facility] Comment on above: Performed By: #### S PAG #### [address] [address] Neutrophil (Seg) 57 % Normal 36-65 [facility] Comment on above: Performed By: #### S PAG #### [address] [address] NRBC Automated 0.0 per 100 WBC Normal 0.0 [facility] Comment on above: Performed By: #### S PAG #### [address] [place] [address] Platelets #/vol (Bld) See Reflexed IPF Result Normal 138-453 [facility] Comment on above: Performed By: #### S PAG #### [facility] [address] [place] [address] RBC #/vol (Bld) 3.76 10*6/uL Low 3.95-5.11 [facility] Comment on above: Performed By: #### S PAG #### [facility] [address] [place] [address] WBC #/vol (Bld) 7.7 10*3/uL Normal 3.5-11.3 [facility] Comment on above: Performed By: #### S PAG #### [facility] [address] [place] [address] Auto Diff Performed NOT REPORTED Normal [facility] Comment on above: Performed By: #### S PAG #### [facility] [address] [place] [address] Platelet mean volume Entitic volume (Bld) NOT REPORTED Normal 8.1-13.5 [facility] Comment on above: Performed By: #### S PAG #### [facility] [address] [place] [address] Platelets #/vol (Bld) NOT REPORTED Normal [facility] Comment on above: Performed By: #### S PAG #### [facility] [address] [place] [address] RBC morphology finding Nom (Bld) NOT REPORTED Normal [facility] Comment on above: Performed By: #### S PAG #### [facility] [address] [place] [address] WBC Morphology NOT REPORTED Normal [facility] Comment on above: Performed By: #### S PAG #### [address] [address] Cult,Bloodon 08-23-2018 Cult,Blood Specimen Description .BLOOD Special Requests L AC 6ML Culture NO GROWTH 6 DAYS Report Status FINAL 08/23/2018 Normal [facility] Comment on above: Performed By: #### S PAG #### [address] [address] Cult,Blood Specimen Description .BLOOD Special Requests L FOREARM 6ML Culture NO GROWTH 6 DAYS Report Status FINAL 08/23/2018 Normal [facility] Comment on above: Performed By: #### S PAG #### [place] [address] PLT, Immature Fract.on 08-23 Platelet, Fluoresc. 113 k/uL Low 138-453 [facility] Comment on above: Performed By: #### S PAG #### [address] [address] PLT, Immature Fract. 3.7 % Normal 1.1-10.3 [facility] Comment on above: Performed By: #### S PAG #### [place] [address] CBC with Diffon 08-22-2018 Abs. Basophil 0.00 k/uL Normal 0.0-0.2 [facility] Comment on above: Performed By: #### U LAG #### [address] [address] Abs.Imm.Granulocyte 0.30 k/uL Normal 0.00-0.30 [facility] Comment on above: Performed By: #### U LAG #### [address] [address] Abs.Neutrophil (Seg) 4.87 k/uL Normal 1.8-7.7 [facility] Comment on above: Performed By: #### U LAG #### [address] [address] Basophils/100 WBC (Bld) 0 % Normal 0-2 [facility] Comment on above: Performed By: #### U LAG #### [address] [address] Eosinophils #/vol (Bld) 0.00 10*3/uL Normal 0.0-0.4 [facility] Comment on above: Performed By: #### U LAG #### [address] [address] Eosinophils/100 WBC (Bld) 0 % Low 1-4 [facility] Comment on above: Performed By: #### U LAG #### [address] [address] Immature granulocytes #/vol (Bld) 4 % High 0 [facility] Comment on above: Performed By: #### U LAG #### [address] [address] Lymphocytes #/vol (Bld) 1.88 10*3/uL Normal 1.0-4.8 [facility] Comment on above: Performed By: #### U LAG #### [address] [address] Lymphocytes/100 WBC (Bld) 25 % Normal 24-44 [facility] Comment on above: Performed By: #### U LAG #### [address] [address] Monocytes #/vol (Bld) 0.45 10*3/uL Normal 0.1-0.8 [facility] Comment on above: Performed By: #### U LAG #### [address] [address] Monocytes/100 WBC (Bld) 6 % Normal 1-7 [facility] Comment on above: Performed By: #### U LAG #### [address] [address] Morphology Interp Rehan (Bld) ANISOCYTOSIS PRESENT Normal [facility] Comment on above: Performed By: #### U LAG #### [address] [address] Neutrophil (Seg) 65 % Normal 36-66 [facility] Comment on above: Performed By: #### U LAG #### [address] [address] Erythrocyte distribution width Ratio (RBC) 14.5 % High 11.8-14.4 [facility] Comment on above: Performed By: #### U LAG #### [address] [address] Hematocrit Volume Fraction (Bld) 38.1 % Normal 36.3-47.1 [facility] Comment on above: Performed By: #### U LAG #### [address] [address] Hemoglobin mass conc (Bld) 11.5 g/dL Low 11.9-15.1 [facility] Comment on above: Performed By: #### U LAG #### [address] [address] MCH Entitic mass (RBC) 28.3 pg Normal 25.2-33.5 [facility] Comment on above: Performed By: #### U LAG #### [address] [address] MCHC mass conc (RBC) 30.2 g/dL Normal 28.4-34.8 [facility] Comment on above: Performed By: #### U LAG #### [facility] [address] [place] [address] 9[address]37 MCV Entitic volume (RBC) 93.6 fL Normal 82.6-102.9 [facility] Comment on above: Performed By: #### U LAG #### [address] [address] NRBC Automated 0.0 per 100 WBC Normal 0.0 [facility] Comment on above: Performed By: #### U LAG #### [facility] [address] [place] [address] 62484 Platelet mean volume Entitic volume (Bld) 10.7 fL Normal 8.1-13.5 [facility] Comment on above: Performed By: #### U LAG #### [address] [address] Platelets #/vol (Bld) 265 10*3/uL Normal 138-453 [facility] Comment on above: Performed By: #### U LAG #### [facility] [address] [place] [address] 43938 RBC #/vol (Bld) 4.07 10*6/uL Normal 3.95-5.11 [facility] Comment on above: Performed By: #### U LAG #### [facility] [address] [place] [address] 13782 WBC #/vol (Bld) 7.5 10*3/uL Normal 3.5-11.3 [facility] Comment on above: Performed By: #### U LAG #### [facility] [address] [place] [address] 26020 Auto Diff Performed NOT REPORTED Normal [facility] Comment on above: Performed By: #### U LAG #### [facility] [address] [place] [address] 97938 Platelets #/vol (Bld) NOT REPORTED Normal [facility] Comment on above: Performed By: #### U LAG #### [facility] [address] [place] [address] 53462 RBC morphology finding Nom (Bld) NOT REPORTED Normal [facility] Comment on above: Performed By: #### U LAG #### [facility] [address] [place] [address] 53368 WBC Morphology NOT REPORTED Normal [facility] Comment on above: Performed By: #### U LAG #### [facility] [address] [place] [address] 89149 Comp Metabolic Pr/rfx MGon 1 10-22-2017 Albumin mass conc 3.2 g/dL Low 3.5-5.2 [facility] Comment on above: Performed By: #### U LAG #### [facility] [address] [place] [address] 50454 Albumin/Globulin mass ratio 0.8 {ratio} Low 1.0-2.5 [facility] Comment on above: Performed By: #### U LAG #### [facility] [address] [place] [address] 18007 Alkaline Phos 90 U/L Normal 35-104 [facility] Comment on above: Performed By: #### U LAG #### [facility] [address] [place] [address] 00338 ALT enzyme act/vol 18 U/L Normal 5-33 [facility] Comment on above: Performed By: #### U LAG #### [facility] [address] [place] [address] 12101 AST enzyme act/vol 16 U/L Normal <32 [facility] Comment on above: Performed By: #### U LAG #### [facility] [address] [place] [address] 53512 Protein mass conc 7.0 g/dL Normal 6.4-8.3 [facility] Comment on above: Performed By: #### U LAG #### [employer] [address] [place] [address]143 (cont.) Normal [facility] Comment on above: Result Comment: Aver age GFR for 30-39 years old: 107 mL/min/1.73sq m Chronic Kidney Disease: <60 mL/min/1.73sq m Kidney failure: <15 mL/min/1.73sq m eGFR calculated using average adult body mass. Additional eGFR calculator available at: http://www.Introhive/multiple_crcl_2012.htm Performed By: #### U LAG #### [employer] [address] [place] [address] Anion gap molar conc 15 mmol/L Normal 9-17 [facility] Comment on above: Performed By: #### U LAG #### [employer] [address] [place] [address] 47776 Bilirubin Ql (U) 0.34 mg/dL Normal 0.3-1.2 [facility] Comment on above: Performed By: #### U LAG #### [employer] [address] [place] [address] 99812 Calcium mass conc 9.7 mg/dL Normal 8.6-10.4 [facility] Comment on above: Performed By: #### U LAG #### [employer] [address] [place] [address] 19033 Chloride molar conc 100 mmol/L Normal 98-107 [facility] Comment on above: Performed By: #### U LAG #### [employer] [address] [place] [address] 90077 CO2 molar conc 24 mmol/L Normal 20-31 [facility] Comment on above: Performed By: #### U LAG #### [employer] [address] [place] [address] 20176 Creatinine mass conc 1.02 mg/dL High 0.50-0.90 [facility] Comment on above: Performed By: #### U LAG #### [facility] [address] [place] [address] 85075 GFR, Amer >60 Normal >60 [facility] Comment on above: Performed By: #### U LAG #### [facility] [address] [place] [address] 02985 GFR,non Amer >60 Normal >60 [facility] Comment on above: Performed By: #### U LAG #### [facility] [address] [place] [address] 61797 Glucose mass conc 101 mg/dL High 70-99 [facility] Comment on above: Performed By: #### U LAG #### [facility] [address] [place] [address] 07633 Potassium molar conc 4.5 mmol/L Normal 3.7-5.3 [facility] Comment on above: Performed By: #### U LAG #### [facility] [address] [place] [address] 52707 Sodium molar conc 139 mmol/L Normal 135-144 [facility] Comment on above: Performed By: #### U LAG #### [facility] [address] [place] [address] 08895 Urea nitrogen mass conc 19 mg/dL Normal 6-20 [facility] Comment on above: Performed By: #### U LAG #### [facility] [address] [place] [address]646 BUN/CRE Ratio NOT REPORTED Normal 9-20 [facility] Comment on above: Performed By: #### U LAG #### [facility] [address] [place] [address] Staging: NOT REPORTED Normal [facility] Comment on above: Performed By: #### U LAG #### [facility] [address] [place] [address] Magnesiumon 08-22-2018 Magnesium mass conc 2.4 mg/dL Normal 1.6-2.6 [facility] Comment on above: Performed By: #### U LAG #### [facility] [address] [place] [address] 62391 Vancomycin Troughon 08-22-20 18 Vancomycin Trough 20.2 ug/mL Critically high 10.0-20.0 [facility] Comment on above: Result Comment: High er trough serum vancomycin concentrations of 15-20 ug/mL are recommended for complicated infections such as bacteremia, endocarditis, osteomyelitis, meningitis, and hospital acquired pneumonia. ADDED ON Performed By: #### U LAG #### [facility] [address] [place] [address]66 Date last dose, NOT REPORTED Normal [facility] Comment on above: Performed By: #### U LAG #### [facility] [address] [place] [address] 15890 Dose amount, NOT REPORTED Normal [facility] Comment on above: Performed By: #### U LAG #### [facility] [address] [place] [address] 16889 Time last dose, NOT REPORTED Normal [facility] Comment on above: Performed By: #### U LAG #### [facility] [address] [place] [address] 19741 CBC with Diffon 08-21-2018 Abs. Basophil 0.08 k/uL Normal 0.00-0.20 [facility] Comment on above: Performed By: #### U LAG #### [facility] [address] [place] [address] 37778 Abs.Imm.Granulocyte 0.50 k/uL High 0.00-0.30 [facility] Comment on above: Performed By: #### U LAG #### [address] [address] Abs.Neutrophil (Seg) 4.73 k/uL Normal 1.50-8.10 [facility] Comment on above: Performed By: #### U LAG #### [address] [address] Basophils/100 WBC (Bld) 1 % Normal 0-2 [facility] Comment on above: Performed By: #### U LAG #### [address] [address] Eosinophils #/vol (Bld) 0.17 10*3/uL Normal 0.00-0.44 [facility] Comment on above: Performed By: #### U LAG #### [address] [address] Eosinophils/100 WBC (Bld) 2 % Normal 1-4 [facility] Comment on above: Performed By: #### U LAG #### [address] [address] Immature granulocytes #/vol (Bld) 6 % High 0 [facility] Comment on above: Performed By: #### U LAG #### [address] [address] Lymphocytes #/vol (Bld) 2.24 10*3/uL Normal 1.10-3.70 [facility] Comment on above: Performed By: #### U LAG #### [address] [address] Lymphocytes/100 WBC (Bld) 27 % Normal 24-43 [facility] Comment on above: Performed By: #### U LAG #### [address] [address] Monocytes #/vol (Bld) 0.58 10*3/uL Normal 0.10-1.20 [facility] Comment on above: Performed By: #### U LAG #### [address] [address] Monocytes/100 WBC (Bld) 7 % Normal 3-12 [facility] Comment on above: Performed By: #### U LAG #### [address] [address] Morphology Interp Rehan (Bld) ANISOCYTOSIS PRESENT Normal [facility] Comment on above: Performed By: #### U LAG #### [address] [address] Neutrophil (Seg) 57 % Normal 36-65 [facility] Comment on above: Performed By: #### U LAG #### [address] [address] Erythrocyte distribution width Ratio (RBC) 14.6 % High 11.8-14.4 [facility] Comment on above: Performed By: #### U LAG #### [address] [address] Hematocrit Volume Fraction (Bld) 38.5 % Normal 36.3-47.1 [facility] Comment on above: Performed By: #### U LAG #### [address] [address] Hemoglobin mass conc (Bld) 11.5 g/dL Low 11.9-15.1 [facility] Comment on above: Performed By: #### U LAG #### [address] [address] MCH Entitic mass (RBC) 28.2 pg Normal 25.2-33.5 [facility] Comment on above: Performed By: #### U LAG #### [address] [address] MCHC mass conc (RBC) 29.9 g/dL Normal 28.4-34.8 [facility] Comment on above: Performed By: #### U LAG #### [address] [address] MCV Entitic volume (RBC) 94.4 fL Normal 82.6-102.9 [facility] Comment on above: Performed By: #### U LAG #### [facility] [address] [place] [address]77 NRBC Automated 0.0 per 100 WBC Normal 0.0 [facility] Comment on above: Performed By: #### U LAG #### [address] [address] Platelet mean volume Entitic volume (Bld) 10.5 fL Normal 8.1-13.5 [facility] Comment on above: Performed By: #### U LAG #### [address] [address] Platelets #/vol (Bld) 264 10*3/uL Normal 138-453 [facility] Comment on above: Performed By: #### U LAG #### [address] [address] RBC #/vol (Bld) 4.08 10*6/uL Normal 3.95-5.11 [facility] Comment on above: Performed By: #### U LAG #### [address] [address] WBC #/vol (Bld) 8.3 10*3/uL Normal 3.5-11.3 [facility] Comment on above: Performed By: #### U LAG #### [address] [address] Auto Diff Performed NOT REPORTED Normal [facility] Comment on above: Performed By: #### U LAG #### [facility] [place] [address] Platelets #/vol (Bld) NOT REPORTED Normal [facility] Comment on above: Performed By: #### U LAG #### [facility] [address] [place] [address] 18809 RBC morphology finding Nom (Bld) NOT REPORTED Normal [facility] Comment on above: Performed By: #### U LAG #### [facility] [address] [place] [address] 99641 WBC Morphology NOT REPORTED Normal [facility] Comment on above: Performed By: #### U LAG #### [facility] [address] [place] [address] 95058 Comp Metabolic Pr/rfx MGon 1 10-21-2017 (cont.) Normal [facility] Comment on above: Result Comment: Aver age GFR for 30-39 years old: 107 mL/min/1.73sq m Chronic Kidney Disease: <60 mL/min/1.73sq m Kidney failure: <15 mL/min/1.73sq m eGFR calculated using average adult body mass. Additional eGFR calculator available at: http://www.WorldEscape.OrderBorder/multiple_crcl_2012.htm Performed By: #### U LAG #### [facility] [address] [place] [address] 02281 Albumin mass conc 2.9 g/dL Low 3.5-5.2 [facility] Comment on above: Performed By: #### U LAG #### [facility] [address] [place] [address] 28078 Albumin/Globulin mass ratio 0.7 {ratio} Low 1.0-2.5 [facility] Comment on above: Performed By: #### U LAG #### [facility] [address] [place] [address] 88023 Alkaline Phos 98 U/L Normal 35-104 [facility] Comment on above: Performed By: #### U LAG #### [facility] [address] [place] [address] 45778 ALT enzyme act/vol 19 U/L Normal 5-33 [facility] Comment on above: Performed By: #### U LAG #### [facility] [address] [place] [address] 56927 Anion gap molar conc 14 mmol/L Normal 9-17 [facility] Comment on above: Performed By: #### U LAG #### [facility] [address] [place] [address] 93099 AST enzyme act/vol 21 U/L Normal <32 [facility] Comment on above: Performed By: #### U LAG #### [facility] [address] [place] [address] 90893 Bilirubin Ql (U) 0.32 mg/dL Normal 0.3-1.2 [facility] Comment on above: Performed By: #### U LAG #### [facility] [address] [place] [address] 80862 Calcium mass conc 9.1 mg/dL Normal 8.6-10.4 [facility] Comment on above: Performed By: #### U LAG #### [facility] [address] [place] [address] 27394 Chloride molar conc 102 mmol/L Normal 98-107 [facility] Comment on above: Performed By: #### U LAG #### [facility] [address] [place] [address] 88830 CO2 molar conc 23 mmol/L Normal 20-31 [facility] Comment on above: Performed By: #### U LAG #### [facility] [address] [place] [address] 76522 Creatinine mass conc 0.90 mg/dL Normal 0.50-0.90 [facility] Comment on above: Performed By: #### U LAG #### [facility] [address] [place] [address] 22664 GFR, Amer >60 Normal >60 [facility] Comment on above: Performed By: #### U LAG #### [facility] [address] [place] [address] 66860 GFR,non Amer >60 Normal >60 [facility] Comment on above: Performed By: #### U LAG #### [facility] [address] [place] [address] 91961 Glucose mass conc 108 mg/dL High 70-99 [facility] Comment on above: Performed By: #### U LAG #### [facility] [address] [place] [address] 51303 Potassium molar conc 4.6 mmol/L Normal 3.7-5.3 [facility] Comment on above: Performed By: #### U LAG #### [facility] [address] [place] [address] 79301 Protein mass conc 6.9 g/dL Normal 6.4-8.3 [facility] Comment on above: Performed By: #### U LAG #### [facility] [address] [place] [address] 18628 Sodium molar conc 139 mmol/L Normal 135-144 [facility] Comment on above: Performed By: #### U LAG #### [employer] [address] [place] [address] 94421 Urea nitrogen mass conc 17 mg/dL Normal 6-20 [facility] Comment on above: Performed By: #### U LAG #### [facility] [address] [place] [address] 70289 BUN/CRE Ratio NOT REPORTED Normal 9-20 [facility] Comment on above: Performed By: #### U LAG #### [facility] [place] [address] Staging: NOT REPORTED Normal [facility] Comment on above: Performed By: #### U LAG #### [facility] [place] [address] Cult,Bloodon 08-21-2018 Cult,Blood Specimen Description .BLOOD Special Requests L AC 20ML Culture POSITIVE Blood Culture CALLED TO MIS Medina [phone] [id number] DIRECT GRAM STAIN FROM BOTTLE: GRAM POSITIVE COCCI IN CLUSTERS METHICILLIN RESISTANT STAPHYLOCOCCUS AUREUS For susceptibility, refer to previous culture. Report Status FINAL 08/21/2018 Normal [facility] Comment on above: Performed By: #### U LAG #### [facility] [address] [place] [address] 63437 MRI FOOT LEFT W WO CONTRASTo n [...] Murali Goff MD 08/21/18 Final result Normal [facility] Magnesiumon 08-21-2018 Magnesium mass conc 2.4 mg/dL Normal 1.6-2.6 [facility] Comment on above: Performed By: #### U LAG #### [place] [address] Procalcitoninon 08-21-2018 Protein mass conc 0.27 ng/mL High <0.09 [facility] Comment on above: Result Comment: [...] entered into the Change in Procalcitonin Calculator (www.iekxiy-hfj-hgofvesiwy.com) to determine the patient's Mortality Risk Prognosis Performed By: #### U LAG #### [address] [address] C-Reactive Proteinon 018 CRP mass conc 50.4 mg/L High 0.0-5.0 [facility] Comment on above: Performed By: #### L ACDS, TROPI, PRCAL, MYCM #### [address] [address] CBC with Diffon 08-20-2018 Abs. Basophil 0.08 k/uL Normal 0.0-0.2 [facility] Comment on above: Performed By: #### L ACDS, TROPI, PRCAL, MYCM #### [address] [address] Abs.Imm.Granulocyte 0.42 k/uL High 0.00-0.30 [facility] Comment on above: Performed By: #### L ACDS, TROPI, PRCAL, MYCM #### [address] [address] Abs.Neutrophil (Seg) 4.57 k/uL Normal 1.8-7.7 [facility] Comment on above: Performed By: #### L ACDS, TROPI, PRCAL, MYCM #### [facility] [address] [place] [address] 78940 Basophils/100 WBC (Bld) 1 % Normal 0-2 [facility] Comment on above: Performed By: #### L ACDS, TROPI, PRCAL, MYCM #### [facility] [address] [place] [address] 94192 Eosinophils #/vol (Bld) 0.25 10*3/uL Normal 0.0-0.4 [facility] Comment on above: Performed By: #### L ACDS, TROPI, PRCAL, MYCM #### [address] [address] Eosinophils/100 WBC (Bld) 3 % Normal 1-4 [facility] Comment on above: Performed By: #### L ACDS, TROPI, PRCAL, MYCM #### [address] [address] Immature granulocytes #/vol (Bld) 5 % High 0 [facility] Comment on above: Performed By: #### L ACDS, TROPI, PRCAL, MYCM #### [address] [address] Lymphocytes #/vol (Bld) 2.32 10*3/uL Normal 1.0-4.8 [facility] Comment on above: Performed By: #### L ACDS, TROPI, PRCAL, MYCM #### [address] [address] Lymphocytes/100 WBC (Bld) 28 % Normal 24-44 [facility] Comment on above: Performed By: #### L ACDS, TROPI, PRCAL, MYCM #### [address] [address] Monocytes #/vol (Bld) 0.66 10*3/uL Normal 0.1-0.8 [facility] Comment on above: Performed By: #### L ACDS, TROPI, PRCAL, MYCM #### [address] [address] Monocytes/100 WBC (Bld) 8 % High 1-7 [facility] Comment on above: Performed By: #### L ACDS, TROPI, PRCAL, MYCM #### [address] [address] Morphology Interp Rehan (Bld) ANISOCYTOSIS PRESENT Normal [facility] Comment on above: Performed By: #### L ACDS, TROPI, PRCAL, MYCM #### [address] [address] Neutrophil (Seg) 55 % Normal 36-66 [facility] Comment on above: Performed By: #### L ACDS, TROPI, PRCAL, MYCM #### [facility] [address] [place] [address] 77975 Erythrocyte distribution width Ratio (RBC) 14.6 % High 11.8-14.4 [facility] Comment on above: Performed By: #### L ACDS, TROPI, PRCAL, MYCM #### [facility] [address] [place] [address] 52050 Hematocrit Volume Fraction (Bld) 33.5 % Low 36.3-47.1 [facility] Comment on above: Performed By: #### L ACDS, TROPI, PRCAL, MYCM #### [address] [address] Hemoglobin mass conc (Bld) 10.2 g/dL Low 11.9-15.1 [facility] Comment on above: Performed By: #### L ACDS, TROPI, PRCAL, MYCM #### [facility] [address] [place] [address] 59711 MCH Entitic mass (RBC) 27.9 pg Normal 25.2-33.5 [facility] Comment on above: Performed By: #### L ACDS, TROPI, PRCAL, MYCM #### [facility] [address] [place] [address] 46796 MCHC mass conc (RBC) 30.4 g/dL Normal 28.4-34.8 [facility] Comment on above: Performed By: #### L ACDS, TROPI, PRCAL, MYCM #### [address] [address] MCV Entitic volume (RBC) 91.5 fL Normal 82.6-102.9 [facility] Comment on above: Performed By: #### L ACDS, TROPI, PRCAL, MYCM #### [address] [address] NRBC Automated 0.0 per 100 WBC Normal 0.0 [facility] Comment on above: Performed By: #### L ACDS, TROPI, PRCAL, MYCM #### [address] [address] Platelet mean volume Entitic volume (Bld) 11.0 fL Normal 8.1-13.5 [facility] Comment on above: Performed By: #### L ACDS, TROPI, PRCAL, MYCM #### [address] [address] Platelets #/vol (Bld) 211 10*3/uL Normal 138-453 [facility] Comment on above: Performed By: #### L ACDS, TROPI, PRCAL, MYCM #### [address] [address] RBC #/vol (Bld) 3.66 10*6/uL Low 3.95-5.11 [facility] Comment on above: Performed By: #### L ACDS, TROPI, PRCAL, MYCM #### [address] [address] WBC #/vol (Bld) 8.3 10*3/uL Normal 3.5-11.3 [facility] Comment on above: Performed By: #### L ACDS, TROPI, PRCAL, MYCM #### [address] [address] Auto Diff Performed NOT REPORTED Normal [facility] Comment on above: Performed By: #### L ACDS, TROPI, PRCAL, MYCM #### [facility] [address] [place] [address] 80465 Platelets #/vol (Bld) NOT REPORTED Normal [facility] Comment on above: Performed By: #### L ACDS, TROPI, PRCAL, MYCM #### [facility] [address] [place] [address] 69077 RBC morphology finding Nom (Bld) NOT REPORTED Normal [facility] Comment on above: Performed By: #### L ACDS, TROPI, PRCAL, MYCM #### [facility] [address] [place] [address] 09513 WBC Morphology NOT REPORTED Normal [facility] Comment on above: Performed By: #### L ACDS, TROPI, PRCAL, MYCM #### [facility] [address] [place] [address] 58153 Comp Metabolic Pr/rfx MGon 1 10-20-2017 (cont.) Normal [facility] Comment on above: Result Comment: Aver age GFR for 30-39 years old: 107 mL/min/1.73sq m Chronic Kidney Disease: <60 mL/min/1.73sq m Kidney failure: <15 mL/min/1.73sq m eGFR calculated using average adult body mass. Additional eGFR calculator available at: http://www.WorldEscape.com/multiple_crcl_2012.htm Performed By: #### L ACDS, TROPI, PRCAL, MYCM #### [facility] [address] [place] [address] 68213 Albumin mass conc 3.1 g/dL Low 3.5-5.2 [facility] Comment on above: Performed By: #### L ACDS, TROPI, PRCAL, MYCM #### [facility] [address] [place] [address] 29519 Albumin/Globulin mass ratio 0.9 {ratio} Low 1.0-2.5 [facility] Comment on above: Performed By: #### L ACDS, TROPI, PRCAL, MYCM #### [address] [address] Alkaline Phos 83 U/L Normal 35-104 [facility] Comment on above: Performed By: #### L ACDS, TROPI, PRCAL, MYCM #### [facility] [address] [place] [address] 34200 ALT enzyme act/vol 17 U/L Normal 5-33 [facility] Comment on above: Performed By: #### L ACDS, TROPI, PRCAL, MYCM #### [facility] [address] [place] [address] 71222 Anion gap molar conc 11 mmol/L Normal 9-17 [facility] Comment on above: Performed By: #### L ACDS, TROPI, PRCAL, MYCM #### [facility] [address] [place] [address] 41512 AST enzyme act/vol 18 U/L Normal <32 [facility] Comment on above: Performed By: #### L ACDS, TROPI, PRCAL, MYCM #### [facility] [address] [place] [address] 95607 Bilirubin Ql (U) 0.29 mg/dL Low 0.3-1.2 [facility] Comment on above: Performed By: #### L ACDS, TROPI, PRCAL, MYCM #### [facility] [address] [place] [address] 37825 Calcium mass conc 9.0 mg/dL Normal 8.6-10.4 [facility] Comment on above: Performed By: #### L ACDS, TROPI, PRCAL, MYCM #### [address] [address] Chloride molar conc 101 mmol/L Normal 98-107 [facility] Comment on above: Performed By: #### L ACDS, TROPI, PRCAL, MYCM #### [address] [address]267 CO2 molar conc 27 mmol/L Normal 20-31 [facility] Comment on above: Performed By: #### L ACDS, TROPI, PRCAL, MYCM #### [address] [address] Creatinine mass conc 0.97 mg/dL High 0.50-0.90 [facility] Comment on above: Performed By: #### L ACDS, TROPI, PRCAL, MYCM #### [facility] [address] [place] [address] 99031 GFR, Amer >60 Normal >60 [facility] Comment on above: Performed By: #### L ACDS, TROPI, PRCAL, MYCM #### [facility] [address] [place] [address] 26554 GFR,non Amer >60 Normal >60 [facility] Comment on above: Performed By: #### L ACDS, TROPI, PRCAL, MYCM #### [facility] [address] [place] [address] 50155 Glucose mass conc 105 mg/dL High 70-99 [facility] Comment on above: Performed By: #### L ACDS, TROPI, PRCAL, MYCM #### [facility] [address] [place] [address] 01377 Potassium molar conc 4.4 mmol/L Normal 3.7-5.3 [facility] Comment on above: Performed By: #### L ACDS, TROPI, PRCAL, MYCM #### [facility] [address] [place] [address] 89706 Protein mass conc 6.6 g/dL Normal 6.4-8.3 [facility] Comment on above: Performed By: #### L ACDS, TROPI, PRCAL, MYCM #### [facility] [address] [place] [address] 29847 Sodium molar conc 139 mmol/L Normal 135-144 [facility] Comment on above: Performed By: #### L ACDS, TROPI, PRCAL, MYCM #### [facility] [address] [place] [address] 76126 Urea nitrogen mass conc 15 mg/dL Normal 6-20 [facility] Comment on above: Performed By: #### L ACDS, TROPI, PRCAL, MYCM #### [facility] [address] [place] [address] 76549 BUN/CRE Ratio NOT REPORTED Normal - [facility] Comment on above: Performed By: #### L ACDS, TROPI, PRCAL, MYCM #### [facility] [address] [place] [address] 53325 Staging: NOT REPORTED Normal [facility] Comment on above: Performed By: #### L ACDS, TROPI, PRCAL, MYCM #### [facility] [address] [place] [address] 89120 Magnesiumon 08-20-2018 Magnesium mass conc 2.2 mg/dL Normal 1.6-2.6 [facility] Comment on above: Performed By: #### L ACDS, TROPI, PRCAL, MYCM #### [facility] [address] [place] [address] 54770 Sedimentation Rateon 018 Sedimentation Rate 100 mm High 0-20 [facility] Comment on above: Performed By: #### L ACDS, TROPI, PRCAL, MYCM #### [address] [address] XR FOOT LEFT (MIN 3 VIEWS)on 08-20-2018 [...] Andrey Angelo MD 08/20/18 Final result Normal [facility] CBC with Diffon 08-19-2018 Abs. Basophil 0.00 k/uL Normal 0.0-0.2 [facility] Comment on above: Performed By: #### L ACDS, TROPI, PRCAL, MYCM #### [address] [address] Abs.Imm.Granulocyte 0.42 k/uL High 0.00-0.30 [facility] Comment on above: Performed By: #### L ACDS, TROPI, PRCAL, MYCM #### [facility] [address] [place] [address] 26680 Abs.Neutrophil (Seg) 2.70 k/uL Normal 1.8-7.7 [facility] Comment on above: Performed By: #### L ACDS, TROPI, PRCAL, MYCM #### [facility] [address] [place] [address] 07093 Basophils/100 WBC (Bld) 0 % Normal 0-2 [facility] Comment on above: Performed By: #### L ACDS, TROPI, PRCAL, MYCM #### [facility] [address] [place] [address] 34233 Eosinophils #/vol (Bld) 0.30 10*3/uL Normal 0.0-0.4 [facility] Comment on above: Performed By: #### L ACDS, TROPI, PRCAL, MYCM #### [address] [address] Eosinophils/100 WBC (Bld) 5 % High 1-4 [facility] Comment on above: Performed By: #### L ACDS, TROPI, PRCAL, MYCM #### [address] [address] Immature granulocytes #/vol (Bld) 7 % High 0 [facility] Comment on above: Performed By: #### L ACDS, TROPI, PRCAL, MYCM #### [address] [address]23[address] Lymphocytes #/vol (Bld) 2.22 10*3/uL Normal 1.0-4.8 [facility] Comment on above: Performed By: #### L ACDS, TROPI, PRCAL, MYCM #### [address] [address]602 Lymphocytes/100 WBC (Bld) 37 % Normal 24-44 [facility] Comment on above: Performed By: #### L ACDS, TROPI, PRCAL, MYCM #### [address] [address] Monocytes #/vol (Bld) 0.36 10*3/uL Normal 0.1-0.8 [facility] Comment on above: Performed By: #### L ACDS, TROPI, PRCAL, MYCM #### [address] 07570 Monocytes/100 WBC (Bld) 6 % Normal 1-7 [facility] Comment on above: Performed By: #### L ACDS, TROPI, PRCAL, MYCM #### [address] [address]66 Morphology Interp Rehan (Bld) ANISOCYTOSIS PRESENT Normal [facility] Comment on above: Performed By: #### L ACDS, TROPI, PRCAL, MYCM #### [address] [address]443 Neutrophil (Seg) 45 % Normal 36-66 [facility] Comment on above: Performed By: #### L ACDS, TROPI, PRCAL, MYCM #### [address] [address] Erythrocyte distribution width Ratio (RBC) 14.6 % High 11.8-14.4 [facility] Comment on above: Performed By: #### L ACDS, TROPI, PRCAL, MYCM #### [address] 26781 Hematocrit Volume Fraction (Bld) 34.4 % Low 36.3-47.1 [facility] Comment on above: Performed By: #### L ACDS, TROPI, PRCAL, MYCM #### [address] [address] Hemoglobin mass conc (Bld) 10.4 g/dL Low 11.9-15.1 [facility] Comment on above: Performed By: #### L ACDS, TROPI, PRCAL, MYCM #### [address] [address] MCH Entitic mass (RBC) 28.0 pg Normal 25.2-33.5 [facility] Comment on above: Performed By: #### L ACDS, TROPI, PRCAL, MYCM #### [address] 71310 MCHC mass conc (RBC) 30.2 g/dL Normal 28.4-34.8 [facility] Comment on above: Performed By: #### L ACDS, TROPI, PRCAL, MYCM #### [address] 83524 MCV Entitic volume (RBC) 92.7 fL Normal 82.6-102.9 [facility] Comment on above: Performed By: #### L ACDS, TROPI, PRCAL, MYCM #### [address] 63550 NRBC Automated 0.3 per 100 WBC High 0.0 [facility] Comment on above: Performed By: #### L ACDS, TROPI, PRCAL, MYCM #### [facility] [address] [place] [address] 64810 Platelet mean volume Entitic volume (Bld) 10.5 fL Normal 8.1-13.5 [facility] Comment on above: Performed By: #### L ACDS, TROPI, PRCAL, MYCM #### [address] [address]07 Platelets #/vol (Bld) 168 10*3/uL Normal 138-453 [facility] Comment on above: Performed By: #### L ACDS, TROPI, PRCAL, MYCM #### [address] [address]99 RBC #/vol (Bld) 3.71 10*6/uL Low 3.95-5.11 [facility] Comment on above: Performed By: #### L ACDS, TROPI, PRCAL, MYCM #### [address] [address] WBC #/vol (Bld) 6.0 10*3/uL Normal 3.5-11.3 [facility] Comment on above: Performed By: #### L ACDS, TROPI, PRCAL, MYCM #### [address] 96779 Auto Diff Performed NOT REPORTED Normal [facility] Comment on above: Performed By: #### L ACDS, TROPI, PRCAL, MYCM #### [address] [address]131 Platelets #/vol (Bld) NOT REPORTED Normal [facility] Comment on above: Performed By: #### L ACDS, TROPI, PRCAL, MYCM #### [facility] [address] [place] [address] 25917 RBC morphology finding Nom (Bld) NOT REPORTED Normal [facility] Comment on above: Performed By: #### L ACDS, TROPI, PRCAL, MYCM #### [address] [address] WBC Morphology NOT REPORTED Normal [facility] Comment on above: Performed By: #### L ACDS, TROPI, PRCAL, MYCM #### [address] [address]367 Comp Metabolic Pr/rfx MGon 1 10-19-2017 (cont.) Normal [facility] Comment on above: Result Comment: Aver age GFR for 30-39 years old: 107 mL/min/1.73sq m Chronic Kidney Disease: <60 mL/min/1.73sq m Kidney failure: <15 mL/min/1.73sq m eGFR calculated using average adult body mass. Additional eGFR calculator available at: http://www.WorldEscape.com/multiple_crcl_2012.htm Performed By: #### L ACDS, TROPI, PRCAL, MYCM #### [facility] [address] [place] [address] 70033 Albumin mass conc 2.7 g/dL Low 3.5-5.2 [facility] Comment on above: Performed By: #### L ACDS, TROPI, PRCAL, MYCM #### [facility] [address] [place] [address] 85485 Albumin/Globulin mass ratio 0.8 {ratio} Low 1.0-2.5 [facility] Comment on above: Performed By: #### L ACDS, TROPI, PRCAL, MYCM #### [facility] [address] [place] [address] 14286 Alkaline Phos 78 U/L Normal 35-104 [facility] Comment on above: Performed By: #### L ACDS, TROPI, PRCAL, MYCM #### [facility] [address] [place] [address] 14276 ALT enzyme act/vol 16 U/L Normal 5-33 [facility] Comment on above: Performed By: #### L ACDS, TROPI, PRCAL, MYCM #### [facility] [address] [place] [address] 54462 Anion gap molar conc 10 mmol/L Normal 9-17 [facility] Comment on above: Performed By: #### L ACDS, TROPI, PRCAL, MYCM #### [facility] [address] [place] [address] 17952 AST enzyme act/vol 16 U/L Normal <32 [facility] Comment on above: Performed By: #### L ACDS, TROPI, PRCAL, MYCM #### [facility] [address] [place] [address] 67610 Bilirubin Ql (U) 0.21 mg/dL Low 0.3-1.2 [facility] Comment on above: Performed By: #### L ACDS, TROPI, PRCAL, MYCM #### [facility] [address] [place] [address] 27677 Calcium mass conc 8.5 mg/dL Low 8.6-10.4 [facility] Comment on above: Performed By: #### L ACDS, TROPI, PRCAL, MYCM #### [address] [address]85 Chloride molar conc 103 mmol/L Normal 98-107 [facility] Comment on above: Performed By: #### L ACDS, TROPI, PRCAL, MYCM #### [address] [address]267 CO2 molar conc 24 mmol/L Normal 20-31 [facility] Comment on above: Performed By: #### L ACDS, TROPI, PRCAL, MYCM #### [address] [address]394 Creatinine mass conc 0.88 mg/dL Normal 0.50-0.90 [facility] Comment on above: Performed By: #### L ACDS, TROPI, PRCAL, MYCM #### [address] [address]316 GFR, Amer >60 Normal >60 [facility] Comment on above: Performed By: #### L ACDS, TROPI, PRCAL, MYCM #### [address] [address] GFR,non Amer >60 Normal >60 [facility] Comment on above: Performed By: #### L ACDS, TROPI, PRCAL, MYCM #### [address] [address]101 Glucose mass conc 104 mg/dL High 70-99 [facility] Comment on above: Performed By: #### L ACDS, TROPI, PRCAL, MYCM #### [address] 81055 Potassium molar conc 4.0 mmol/L Normal 3.7-5.3 [facility] Comment on above: Performed By: #### L ACDS, TROPI, PRCAL, MYCM #### [facility] [address] [place] [address] 57155 Protein mass conc 6.3 g/dL Low 6.4-8.3 [facility] Comment on above: Performed By: #### L ACDS, TROPI, PRCAL, MYCM #### [employer] [address] [place] [address] 86328 Sodium molar conc 137 mmol/L Normal 135-144 [facility] Comment on above: Performed By: #### L ACDS, TROPI, PRCAL, MYCM #### [facility] [address] [place] [address] 85161 Urea nitrogen mass conc 16 mg/dL Normal 6-20 [facility] Comment on above: Performed By: #### L ACDS, TROPI, PRCAL, MYCM #### [employer] [address] [place] [address] 31641 BUN/CRE Ratio NOT REPORTED Normal - [facility] Comment on above: Performed By: #### L ACDS, TROPI, PRCAL, MYCM #### [facility] [address] [place] [address] 55369 Staging: NOT REPORTED Normal [facility] Comment on above: Performed By: #### L ACDS, TROPI, PRCAL, MYCM #### [employer] [address] [place] [address] 07298 Cult, Bloodon 08-19-2018 Cult, Blood Specimen Description [...] Trimethoprim/Sulfa <=10 SUSCEPTIBLE Vancomycin 1 SUSCEPTIBLE Normal [facility] Comment on above: Performed By: #### L ACDS, TROPI, PRCAL, MYCM #### [facility] [address] [place], [place] [id number] MRI CERVICAL SPINE W WO CONT RASTon [...] Bo Rodrigues MD 08/19/18 Final result Normal [facility] MRI LUMBAR SPINE W WO CONTRA [...] Bo Rodrigues MD 08/19/18 Final result Normal [facility] MRI THORACIC SPINE W WO [...] Bo Rodrigues MD 08/19/18 Final result Normal [facility] Magnesiumon 08-19-2018 Magnesium mass conc 2.3 mg/dL Normal 1.6-2.6 [facility] Comment on above: Performed By: #### L ACDS, TROPI, PRCAL, MYCM #### [employer] [address] [place] [address] Procalcitoninon 08-19-2018 Protein mass conc 0.57 ng/mL High <0.09 [facility] Comment on above: Result Comment: [...] entered into the Change in Procalcitonin Calculator (www.cptpap-mcc-gzhfesrlfc.com) to determine the patient's Mortality Risk Prognosis Performed By: #### L ACDS, TROPI, PRCAL, MYCM #### [employer] [address] [place] [address] CBC with Diffon 08-18-2018 Abs. Basophil <0.03 Normal 0.00-0.20 [facility] Comment on above: Performed By: #### L ACDS, TROPI, PRCAL, MYCM #### [employer] [address] [place] [address] 65026 Abs.Imm.Granulocyte 0.28 k/uL Normal 0.00-0.30 [facility] Comment on above: Performed By: #### L ACDS, TROPI, PRCAL, MYCM #### [address] [address] Abs.Neutrophil (Seg) 3.23 k/uL Normal 1.50-8.10 [facility] Comment on above: Performed By: #### L ACDS, TROPI, PRCAL, MYCM #### [address] [address]805 Basophils/100 WBC (Bld) 0 % Normal 0-2 [facility] Comment on above: Performed By: #### L ACDS, TROPI, PRCAL, MYCM #### [address] [address] Eosinophils #/vol (Bld) 0.15 10*3/uL Normal 0.00-0.44 [facility] Comment on above: Performed By: #### L ACDS, TROPI, PRCAL, MYCM #### [facility] [address] [place] [address] 02821 Eosinophils/100 WBC (Bld) 3 % Normal 1-4 [facility] Comment on above: Performed By: #### L ACDS, TROPI, PRCAL, MYCM #### [facility] [address] [place] [address] 99271 Erythrocyte distribution width Ratio (RBC) 14.7 % High 11.8-14.4 [facility] Comment on above: Performed By: #### L ACDS, TROPI, PRCAL, MYCM #### [facility] [address] [place] [address] 55368 Hematocrit Volume Fraction (Bld) 32.7 % Low 36.3-47.1 [facility] Comment on above: Performed By: #### L ACDS, TROPI, PRCAL, MYCM #### [address] [address] Hemoglobin mass conc (Bld) 10.1 g/dL Low 11.9-15.1 [facility] Comment on above: Performed By: #### L ACDS, TROPI, PRCAL, MYCM #### [address] [address] Immature granulocytes #/vol (Bld) 5 % High 0 [facility] Comment on above: Performed By: #### L ACDS, TROPI, PRCAL, MYCM #### [address] [address] Lymphocytes #/vol (Bld) 1.58 10*3/uL Normal 1.10-3.70 [facility] Comment on above: Performed By: #### L ACDS, TROPI, PRCAL, MYCM #### [address] 05578 Lymphocytes/100 WBC (Bld) 28 % Normal 24-43 [facility] Comment on above: Performed By: #### L ACDS, TROPI, PRCAL, MYCM #### [address] [address] MCH Entitic mass (RBC) 28.2 pg Normal 25.2-33.5 [facility] Comment on above: Performed By: #### L ACDS, TROPI, PRCAL, MYCM #### [address] [address]251 MCHC mass conc (RBC) 30.9 g/dL Normal 28.4-34.8 [facility] Comment on above: Performed By: #### L ACDS, TROPI, PRCAL, MYCM #### [address] [address]5763 MCV Entitic volume (RBC) 91.3 fL Normal 82.6-102.9 [facility] Comment on above: Performed By: #### L ACDS, TROPI, PRCAL, MYCM #### [address] [address] Monocytes #/vol (Bld) 0.47 10*3/uL Normal 0.10-1.20 [facility] Comment on above: Performed By: #### L ACDS, TROPI, PRCAL, MYCM #### [address] [address] Monocytes/100 WBC (Bld) 8 % Normal 3-12 [facility] Comment on above: Performed By: #### L ACDS, TROPI, PRCAL, MYCM #### [address] [address]990 Neutrophil (Seg) 56 % Normal 36-65 [facility] Comment on above: Performed By: #### L ACDS, TROPI, PRCAL, MYCM #### [address] [address]65 NRBC Automated 0.0 per 100 WBC Normal 0.0 [facility] Comment on above: Performed By: #### L ACDS, TROPI, PRCAL, MYCM #### [address] [address] Platelet mean volume Entitic volume (Bld) 11.4 fL Normal 8.1-13.5 [facility] Comment on above: Performed By: #### L ACDS, TROPI, PRCAL, MYCM #### [address] [address]367 Platelets #/vol (Bld) 153 10*3/uL Normal 138-453 [facility] Comment on above: Performed By: #### L ACDS, TROPI, PRCAL, MYCM #### [address] [address]758 RBC #/vol (Bld) 3.58 10*6/uL Low 3.95-5.11 [facility] Comment on above: Performed By: #### L ACDS, TROPI, PRCAL, MYCM #### [address] [address]607 RBC morphology finding Nom (Bld) ANISOCYTOSIS PRESENT Normal [facility] Comment on above: Performed By: #### L ACDS, TROPI, PRCAL, MYCM #### [address] [address] WBC #/vol (Bld) 5.7 10*3/uL Normal 3.5-11.3 [facility] Comment on above: Performed By: #### L ACDS, TROPI, PRCAL, MYCM #### [address] 9[address] Auto Diff Performed NOT REPORTED Normal [facility] Comment on above: Performed By: #### L ACDS, TROPI, PRCAL, MYCM #### [address] [address]344 Platelets #/vol (Bld) NOT REPORTED Normal [facility] Comment on above: Performed By: #### L ACDS, TROPI, PRCAL, MYCM #### [address] [address] WBC Morphology NOT REPORTED Normal [facility] Comment on above: Performed By: #### L ACDS, TROPI, PRCAL, MYCM #### [address] [address] Comp Metabolic Pr/rfx MGon 1 10-18-2017 (cont.) Normal [facility] Comment on above: Result Comment: Aver age GFR for 30-39 years old: 107 mL/min/1.73sq m Chronic Kidney Disease: <60 mL/min/1.73sq m Kidney failure: <15 mL/min/1.73sq m eGFR calculated using average adult body mass. Additional eGFR calculator available at: http://www.[employer]/multiple_crcl_2012.htm Performed By: #### L ACDS, TROPI, PRCAL, MYCM #### [facility] [address] [place] [address] 62463 Albumin mass conc 2.7 g/dL Low 3.5-5.2 [facility] Comment on above: Performed By: #### L ACDS, TROPI, PRCAL, MYCM #### [facility] [address] [place] [address] 93796 Albumin/Globulin mass ratio 0.8 {ratio} Low 1.0-2.5 [facility] Comment on above: Performed By: #### L ACDS, TROPI, PRCAL, MYCM #### [facility] [address] [place] [address] 55723 Alkaline Phos 82 U/L Normal 35-104 [facility] Comment on above: Performed By: #### L ACDS, TROPI, PRCAL, MYCM #### [facility] [address] [place] [address] 22236 ALT enzyme act/vol 19 U/L Normal 5-33 [facility] Comment on above: Performed By: #### L ACDS, TROPI, PRCAL, MYCM #### [facility] [address] [place] [address] 32544 Anion gap molar conc 8 mmol/L Low 9-17 [facility] Comment on above: Performed By: #### L ACDS, TROPI, PRCAL, MYCM #### [facility] [address] [place] [address] 45873 AST enzyme act/vol 17 U/L Normal <32 [facility] Comment on above: Performed By: #### L ACDS, TROPI, PRCAL, MYCM #### [facility] [address] [place] [id number] Bilirubin Ql (U) 0.24 mg/dL Low 0.3-1.2 [facility] Comment on above: Performed By: #### L ACDS, TROPI, PRCAL, MYCM #### [facility] [address] [place] [address] 74417 Calcium mass conc 8.2 mg/dL Low 8.6-10.4 [facility] Comment on above: Performed By: #### L ACDS, TROPI, PRCAL, MYCM #### [address] [address] Chloride molar conc 103 mmol/L Normal 98-107 [facility] Comment on above: Performed By: #### L ACDS, TROPI, PRCAL, MYCM #### [facility] [address] [place] [address] 34778 CO2 molar conc 25 mmol/L Normal 20-31 [facility] Comment on above: Performed By: #### L ACDS, TROPI, PRCAL, MYCM #### [facility] [address] [place] [address] 54392 Creatinine mass conc 0.94 mg/dL High 0.50-0.90 [facility] Comment on above: Performed By: #### L ACDS, TROPI, PRCAL, MYCM #### [facility] [address] [place] [address] 28165 GFR, Amer >60 Normal >60 [facility] Comment on above: Performed By: #### L ACDS, TROPI, PRCAL, MYCM #### [facility] [address] [place] [address] 40094 GFR,non Amer >60 Normal >60 [facility] Comment on above: Performed By: #### L ACDS, TROPI, PRCAL, MYCM #### [facility] [address] [place] [address] 72253 Glucose mass conc 107 mg/dL High 70-99 [facility] Comment on above: Performed By: #### L ACDS, TROPI, PRCAL, MYCM #### [facility] [address] [place] [address] 91598 Potassium molar conc 4.1 mmol/L Normal 3.7-5.3 [facility] Comment on above: Performed By: #### L ACDS, TROPI, PRCAL, MYCM #### [facility] [address] [place] [address] 23777 Protein mass conc 6.2 g/dL Low 6.4-8.3 [facility] Comment on above: Performed By: #### L ACDS, TROPI, PRCAL, MYCM #### [facility] [address] [place] [address] 11529 Sodium molar conc 136 mmol/L Normal 135-144 [facility] Comment on above: Performed By: #### L ACDS, TROPI, PRCAL, MYCM #### [facility] [address] [place] [address] 14399 Urea nitrogen mass conc 14 mg/dL Normal 6-20 [facility] Comment on above: Performed By: #### L ACDS, TROPI, PRCAL, MYCM #### [facility] [address] [place] [address] 41627 BUN/CRE Ratio NOT REPORTED Normal 9-20 [facility] Comment on above: Performed By: #### L ACDS, TROPI, PRCAL, MYCM #### [facility] [address] [place] [address] 51846 Staging: NOT REPORTED Normal [facility] Comment on above: Performed By: #### L ACDS, TROPI, PRCAL, MYCM #### [employer] [address] [place] [address] 71139 Magnesiumon 08-18-2018 Magnesium mass conc 2.3 mg/dL Normal 1.6-2.6 [facility] Comment on above: Performed By: #### L ACDS, TROPI, PRCAL, MYCM #### [employer] [address] [place] [address] 67181 Vancomycin Troughon 08-18-20 18 Vancomycin Trough 14.7 ug/mL Normal 10.0-20.0 [facility] Comment on above: Result Comment: High er trough serum vancomycin concentrations of 15-20 ug/mL are recommended for complicated infections such as bacteremia, endocarditis, osteomyelitis, meningitis, and hospital acquired pneumonia. Performed By: #### L ACDS, TROPI, PRCAL, MYCM #### [employer] [address] [place] [address] 78922 Date last dose, NOT REPORTED Normal [facility] Comment on above: Performed By: #### L ACDS, TROPI, PRCAL, MYCM #### [employer] [address] [place] [address] 11411 Dose amount, NOT REPORTED Normal [facility] Comment on above: Performed By: #### L ACDS, TROPI, PRCAL, MYCM #### [employer] [address] [place] [address] 50596 Time last dose, NOT REPORTED Normal [facility] Comment on above: Performed By: #### L ACDS, TROPI, PRCAL, MYCM #### [employer] [address] [place] [address] 35213 C-Reactive Proteinon 018 CRP mass conc 188.1 mg/L High 0.0-5.0 [facility] Comment on above: Performed By: #### L ACDS, TROPI, PRCAL, MYCM #### [place] [address] CBC with Diffon 08-17-2018 Abs. Basophil 0.00 k/uL Normal 0.0-0.2 [facility] Comment on above: Performed By: #### L ACDS, TROPI, PRCAL, MYCM #### [place] [address] Abs.Imm.Granulocyte 0.13 k/uL Normal 0.00-0.30 [facility] Comment on above: Performed By: #### L ACDS, TROPI, PRCAL, MYCM #### [address] [address] Abs.Neutrophil (Seg) 4.35 k/uL Normal 1.8-7.7 [facility] Comment on above: Performed By: #### L ACDS, TROPI, PRCAL, MYCM #### [address] [address] Basophils/100 WBC (Bld) 0 % Normal 0-2 [facility] Comment on above: Performed By: #### L ACDS, TROPI, PRCAL, MYCM #### [address] [address] Eosinophils #/vol (Bld) 0.06 10*3/uL Normal 0.0-0.4 [facility] Comment on above: Performed By: #### L ACDS, TROPI, PRCAL, MYCM #### [facility] [address] [place] [address] 65183 Eosinophils/100 WBC (Bld) 1 % Normal 1-4 [facility] Comment on above: Performed By: #### L ACDS, TROPI, PRCAL, MYCM #### [facility] [address] [place] [address] 05660 Immature granulocytes #/vol (Bld) 2 % High 0 [facility] Comment on above: Performed By: #### L ACDS, TROPI, PRCAL, MYCM #### [address] [address] Lymphocytes #/vol (Bld) 1.32 10*3/uL Normal 1.0-4.8 [facility] Comment on above: Performed By: #### L ACDS, TROPI, PRCAL, MYCM #### [address] [address] Lymphocytes/100 WBC (Bld) 21 % Low 24-44 [facility] Comment on above: Performed By: #### L ACDS, TROPI, PRCAL, MYCM #### [address] [address] Monocytes #/vol (Bld) 0.44 10*3/uL Normal 0.1-0.8 [facility] Comment on above: Performed By: #### L ACDS, TROPI, PRCAL, MYCM #### [facility] [address] [place] [address] 58724 Monocytes/100 WBC (Bld) 7 % Normal 1-7 [facility] Comment on above: Performed By: #### L ACDS, TROPI, PRCAL, MYCM #### [facility] [address] [place] [address] 78234 Morphology Interp Rehan (Bld) ANISOCYTOSIS PRESENT Normal [facility] Comment on above: Result Comment: INCR EASED BANDS PRESENT 1+ TEARDROPS Performed By: #### L ACDS, TROPI, PRCAL, MYCM #### [address] [address] Neutrophil (Seg) 69 % High 36-66 [facility] Comment on above: Performed By: #### L ACDS, TROPI, PRCAL, MYCM #### [address] [address] Erythrocyte distribution width Ratio (RBC) 14.8 % High 11.8-14.4 [facility] Comment on above: Performed By: #### L ACDS, TROPI, PRCAL, MYCM #### [address] [address] Hematocrit Volume Fraction (Bld) 33.3 % Low 36.3-47.1 [facility] Comment on above: Performed By: #### L ACDS, TROPI, PRCAL, MYCM #### [address] [address] Hemoglobin mass conc (Bld) 10.2 g/dL Low 11.9-15.1 [facility] Comment on above: Performed By: #### L ACDS, TROPI, PRCAL, MYCM #### [address] [address] MCH Entitic mass (RBC) 28.3 pg Normal 25.2-33.5 [facility] Comment on above: Performed By: #### L ACDS, TROPI, PRCAL, MYCM #### [address] [address] MCHC mass conc (RBC) 30.6 g/dL Normal 28.4-34.8 [facility] Comment on above: Performed By: #### L ACDS, TROPI, PRCAL, MYCM #### [address] [address] MCV Entitic volume (RBC) 92.2 fL Normal 82.6-102.9 [facility] Comment on above: Performed By: #### L ACDS, TROPI, PRCAL, MYCM #### [address] [address] NRBC Automated 0.0 per 100 WBC Normal 0.0 [facility] Comment on above: Performed By: #### L ACDS, TROPI, PRCAL, MYCM #### [address] [address] Platelet mean volume Entitic volume (Bld) 11.5 fL Normal 8.1-13.5 [facility] Comment on above: Performed By: #### L ACDS, TROPI, PRCAL, MYCM #### [address] [address] Platelets #/vol (Bld) 149 10*3/uL Normal 138-453 [facility] Comment on above: Performed By: #### L ACDS, TROPI, PRCAL, MYCM #### [address] [address] RBC #/vol (Bld) 3.61 10*6/uL Low 3.95-5.11 [facility] Comment on above: Performed By: #### L ACDS, TROPI, PRCAL, MYCM #### [address] [address] WBC #/vol (Bld) 6.3 10*3/uL Normal 3.5-11.3 [facility] Comment on above: Performed By: #### L ACDS, TROPI, PRCAL, MYCM #### [address] [address] Auto Diff Performed NOT REPORTED Normal [facility] Comment on above: Performed By: #### L ACDS, TROPI, PRCAL, MYCM #### [address] [address] Platelets #/vol (Bld) NOT REPORTED Normal [facility] Comment on above: Performed By: #### L ACDS, TROPI, PRCAL, MYCM #### [employer] [address] [place] [address] 15436 RBC morphology finding Nom (Bld) NOT REPORTED Normal [facility] Comment on above: Performed By: #### L ACDS, TROPI, PRCAL, MYCM #### [employer] [address] [place] [address] 08320 WBC Morphology NOT REPORTED Normal [facility] Comment on above: Performed By: #### L ACDS, TROPI, PRCAL, MYCM #### [facility] [address] [place] [address] 08469 Comp Metabolic Pr/rfx MGon 1 10-17-2017 (cont.) Normal [facility] Comment on above: Result Comment: Aver age GFR for 30-39 years old: 107 mL/min/1.73sq m Chronic Kidney Disease: <60 mL/min/1.73sq m Kidney failure: <15 mL/min/1.73sq m eGFR calculated using average adult body mass. Additional eGFR calculator available at: http://www.Introhive/multiple_crcl_2012.htm Performed By: #### L ACDS, TROPI, PRCAL, MYCM #### [employer] [address] [place] [address] 14869 Albumin mass conc 2.4 g/dL Low 3.5-5.2 [facility] Comment on above: Performed By: #### L ACDS, TROPI, PRCAL, MYCM #### [employer] [address] [place] [address] 08592 Albumin/Globulin mass ratio 0.7 {ratio} Low 1.0-2.5 [facility] Comment on above: Performed By: #### L ACDS, TROPI, PRCAL, MYCM #### [employer] [address] [place] [address] 51708 Alkaline Phos 76 U/L Normal 35-104 [facility] Comment on above: Performed By: #### L ACDS, TROPI, PRCAL, MYCM #### [facility] [address] [place] [address] 89408 ALT enzyme act/vol 25 U/L Normal 5-33 [facility] Comment on above: Performed By: #### L ACDS, TROPI, PRCAL, MYCM #### [facility] [address] [place] [address] 12865 Anion gap molar conc 8 mmol/L Low 9-17 [facility] Comment on above: Performed By: #### L ACDS, TROPI, PRCAL, MYCM #### [facility] [address] [place] [address] 47710 AST enzyme act/vol 26 U/L Normal <32 [facility] Comment on above: Performed By: #### L ACDS, TROPI, PRCAL, MYCM #### [facility] [address] [place] [address] 69282 Bilirubin Ql (U) 0.34 mg/dL Normal 0.3-1.2 [facility] Comment on above: Performed By: #### L ACDS, TROPI, PRCAL, MYCM #### [facility] [address] [place] [address] 95819 Calcium mass conc 7.8 mg/dL Low 8.6-10.4 [facility] Comment on above: Performed By: #### L ACDS, TROPI, PRCAL, MYCM #### [facility] [address] [place] [address] 79518 Chloride molar conc 99 mmol/L Normal 98-107 [facility] Comment on above: Performed By: #### L ACDS, TROPI, PRCAL, MYCM #### [facility] [address] [place] [address] 07404 CO2 molar conc 23 mmol/L Normal 20-31 [facility] Comment on above: Performed By: #### L ACDS, TROPI, PRCAL, MYCM #### [facility] [address] [place] [address] 32949 Creatinine mass conc 1.04 mg/dL High 0.50-0.90 [facility] Comment on above: Performed By: #### L ACDS, TROPI, PRCAL, MYCM #### [facility] [address] [place] [address] 95706 GFR, Amer >60 Normal >60 [facility] Comment on above: Performed By: #### L ACDS, TROPI, PRCAL, MYCM #### [facility] [address] [place] [address] 52575 GFR,non Amer 59 mL/min Low >60 [facility] Comment on above: Performed By: #### L ACDS, TROPI, PRCAL, MYCM #### [facility] [address] [place] [address] 61628 Glucose mass conc 109 mg/dL High 70-99 [facility] Comment on above: Performed By: #### L ACDS, TROPI, PRCAL, MYCM #### [facility] [address] [place] [address] 11057 Potassium molar conc 3.8 mmol/L Normal 3.7-5.3 [facility] Comment on above: Performed By: #### L ACDS, TROPI, PRCAL, MYCM #### [facility] [address] [place] [address] 12613 Protein mass conc 5.8 g/dL Low 6.4-8.3 [facility] Comment on above: Performed By: #### L ACDS, TROPI, PRCAL, MYCM #### [facility] [address] [place] [address] 35776 Sodium molar conc 130 mmol/L Low 135-144 [facility] Comment on above: Performed By: #### L ACDS, TROPI, PRCAL, MYCM #### [employer] [facility] [place] [address] Urea nitrogen mass conc 15 mg/dL Normal 6-20 [facility] Comment on above: Performed By: #### L ACDS, TROPI, PRCAL, MYCM #### [employer] [address] [place] [address] 67289 BUN/CRE Ratio NOT REPORTED Normal -20 [facility] Comment on above: Performed By: #### L ACDS, TROPI, PRCAL, MYCM #### [facility] [address] [place] [address] 98508 Staging: NOT REPORTED Normal [facility] Comment on above: Performed By: #### L ACDS, TROPI, PRCAL, MYCM #### [facility] [address] [place] [address] 55715 Magnesiumon 08-17-2018 Magnesium mass conc 2.2 mg/dL Normal 1.6-2.6 [facility] Comment on above: Performed By: #### L ACDS, TROPI, PRCAL, MYCM #### [facility] [address] [place] [address] 93129 Procalcitoninon 08-17-2018 Protein mass conc 1.48 ng/mL High <0.09 [facility] Comment on above: Result Comment: [...] entered into the Change in Procalcitonin Calculator (www.alqqcn-cyt-zyeysrfejw.OrderBorder) to determine the patient's Mortality Risk Prognosis Performed By: #### L ACDS, TROPI, PRCAL, MYCM #### [address] [address] Sedimentation Rateon 018 Sedimentation Rate 97 mm High 0-20 [facility] Comment on above: Performed By: #### L ACDS, TROPI, PRCAL, MYCM #### [facility] [address] [place] [address] 97435 CBC with Diffon 08-16-2018 Abs. Basophil 0.00 k/uL Normal 0.00-0.20 [facility] Comment on above: Performed By: #### L ACDS, TROPI, PRCAL, MYCM #### [address] [address] Abs.Imm.Granulocyte 0.11 k/uL Normal 0.00-0.30 [facility] Comment on above: Performed By: #### L ACDS, TROPI, PRCAL, MYCM #### [facility] [address] [place] [address] 16992 Abs.Neutrophil (Seg) 4.60 k/uL Normal 1.50-8.10 [facility] Comment on above: Performed By: #### L ACDS, TROPI, PRCAL, MYCM #### [facility] [address] [place] [address] 72058 Basophils/100 WBC (Bld) 0 % Normal 0-2 [facility] Comment on above: Performed By: #### L ACDS, TROPI, PRCAL, MYCM #### [facility] [address] [place], [place] [address], [place] [address] Eosinophils #/vol (Bld) 0.00 10*3/uL Normal 0.00-0.44 [facility] Comment on above: Performed By: #### L ACDS, TROPI, PRCAL, MYCM #### [address] [address] Eosinophils/100 WBC (Bld) 0 % Low 1-4 [facility] Comment on above: Performed By: #### L ACDS, TROPI, PRCAL, MYCM #### [address] [address] Immature granulocytes #/vol (Bld) 2 % High 0 [facility] Comment on above: Performed By: #### L ACDS, TROPI, PRCAL, MYCM #### [address] [address] Lymphocytes #/vol (Bld) 0.67 10*3/uL Low 1.10-3.70 [facility] Comment on above: Performed By: #### L ACDS, TROPI, PRCAL, MYCM #### [address] [address] Lymphocytes/100 WBC (Bld) 12 % Low 24-43 [facility] Comment on above: Performed By: #### L ACDS, TROPI, PRCAL, MYCM #### [address] [address] Monocytes #/vol (Bld) 0.22 10*3/uL Normal 0.10-1.20 [facility] Comment on above: Performed By: #### L ACDS, TROPI, PRCAL, MYCM #### [address] [address] Monocytes/100 WBC (Bld) 4 % Normal 3-12 [facility] Comment on above: Performed By: #### L ACDS, TROPI, PRCAL, MYCM #### [address] [address] Morphology Interp Rehan (Bld) ANISOCYTOSIS PRESENT Normal [facility] Comment on above: Result Comment: INCR EASED BANDS PRESENT 1+ TEARDROPS Performed By: #### L ACDS, TROPI, PRCAL, MYCM #### [address] [address] Neutrophil (Seg) 82 % High 36-65 [facility] Comment on above: Performed By: #### L ACDS, TROPI, PRCAL, MYCM #### [address] [address] Erythrocyte distribution width Ratio (RBC) 15.1 % High 11.8-14.4 [facility] Comment on above: Performed By: #### L ACDS, TROPI, PRCAL, MYCM #### [address] [address] Hematocrit Volume Fraction (Bld) 34.1 % Low 36.3-47.1 [facility] Comment on above: Performed By: #### L ACDS, TROPI, PRCAL, MYCM #### [address] [address] Hemoglobin mass conc (Bld) 10.0 g/dL Low 11.9-15.1 [facility] Comment on above: Performed By: #### L ACDS, TROPI, PRCAL, MYCM #### [address] [address] MCH Entitic mass (RBC) 28.7 pg Normal 25.2-33.5 [facility] Comment on above: Performed By: #### L ACDS, TROPI, PRCAL, MYCM #### [facility] [address] [place] [address] 67067 MCHC mass conc (RBC) 29.3 g/dL Normal 28.4-34.8 [facility] Comment on above: Performed By: #### L ACDS, TROPI, PRCAL, MYCM #### [address] [address] MCV Entitic volume (RBC) 98.0 fL Normal 82.6-102.9 [facility] Comment on above: Performed By: #### L ACDS, TROPI, PRCAL, MYCM #### [address] [address] NRBC Automated 0.0 per 100 WBC Normal 0.0 [facility] Comment on above: Performed By: #### L ACDS, TROPI, PRCAL, MYCM #### [address] [address] Platelet mean volume Entitic volume (Bld) 11.1 fL Normal 8.1-13.5 [facility] Comment on above: Performed By: #### L ACDS, TROPI, PRCAL, MYCM #### [address] [address] Platelets #/vol (Bld) 119 10*3/uL Low 138-453 [facility] Comment on above: Performed By: #### L ACDS, TROPI, PRCAL, MYCM #### [address] [address] RBC #/vol (Bld) 3.48 10*6/uL Low 3.95-5.11 [facility] Comment on above: Performed By: #### L ACDS, TROPI, PRCAL, MYCM #### [address] [address] WBC #/vol (Bld) 5.6 10*3/uL Normal 3.5-11.3 [facility] Comment on above: Performed By: #### L ACDS, TROPI, PRCAL, MYCM #### [facility] [address] [place] [address] 75008 Auto Diff Performed NOT REPORTED Normal [facility] Comment on above: Performed By: #### L ACDS, TROPI, PRCAL, MYCM #### [facility] [address] [place] [address] 25679 Platelets #/vol (Bld) NOT REPORTED Normal [facility] Comment on above: Performed By: #### L ACDS, TROPI, PRCAL, MYCM #### [facility] [address] [place] [address] 04377 RBC morphology finding Nom (Bld) NOT REPORTED Normal [facility] Comment on above: Performed By: #### L ACDS, TROPI, PRCAL, MYCM #### [facility] [address] [place] [address] 07538 WBC Morphology NOT REPORTED Normal [facility] Comment on above: Performed By: #### L ACDS, TROPI, PRCAL, MYCM #### [address] [address] [address] HEAD WO CONTRASTon 2017 CT HEAD [...] Erica [place] MD 08/16/18 Final result Normal [facility] Calcium, Ionicon 08-16-2018 Calcium mass conc 0.99 mmol/L Low 1.13-1.33 [facility] Comment on above: Performed By: #### L ACDS, TROPI, PRCAL, MYCM #### [facility] [address] [place] [address] 30989 Comp Metabolic Pr/rfx MGon 1 10-16-2017 (cont.) Normal [facility] Comment on above: Result Comment: Aver age GFR for 30-39 years old: 107 mL/min/1.73sq m Chronic Kidney Disease: <60 mL/min/1.73sq m Kidney failure: <15 mL/min/1.73sq m eGFR calculated using average adult body mass. Additional eGFR calculator available at: http://www.[employer]Escape.OrderBorder/multiple_crcl_2012.htm Performed By: #### P T, CMPX, MG, CDP #### [facility] [address] [place] [address] 64486 Albumin mass conc 2.3 g/dL Low 3.5-5.2 [facility] Comment on above: Performed By: #### P T, CMPX, MG, CDP #### [facility] [address] [place] [address] 22547 Albumin/Globulin mass ratio 0.7 {ratio} Low 1.0-2.5 [facility] Comment on above: Performed By: #### P T, CMPX, MG, CDP #### [facility] [address] [place] [address] 72057 Alkaline Phos 67 U/L Normal 35-104 [facility] Comment on above: Performed By: #### P T, CMPX, MG, CDP #### [address] [address] ALT enzyme act/vol 33 U/L Normal 5-33 [facility] Comment on above: Performed By: #### P T, CMPX, MG, CDP #### [address] [address] Anion gap molar conc 11 mmol/L Normal 9-17 [facility] Comment on above: Performed By: #### P T, CMPX, MG, CDP #### [facility] [address] [place] [address] 15163 AST enzyme act/vol 41 U/L High <32 [facility] Comment on above: Performed By: #### P T, CMPX, MG, CDP #### [facility] [address] [place] [address] 07015 Bilirubin Ql (U) 0.40 mg/dL Normal 0.3-1.2 [facility] Comment on above: Performed By: #### P T, CMPX, MG, CDP #### [address] [address] Calcium mass conc 7.3 mg/dL Low 8.6-10.4 [facility] Comment on above: Performed By: #### P T, CMPX, MG, CDP #### [facility] [address] [place] [address] 08692 Chloride molar conc 105 mmol/L Normal 98-107 [facility] Comment on above: Performed By: #### P T, CMPX, MG, CDP #### [facility] [address] [place] [address] 16002 CO2 molar conc 18 mmol/L Low 20-31 [facility] Comment on above: Performed By: #### P T, CMPX, MG, CDP #### [address] [address] Creatinine mass conc 1.09 mg/dL High 0.50-0.90 [facility] Comment on above: Performed By: #### P T, CMPX, MG, CDP #### [facility] [address] [place] [address] [phone] GFR, Amer >60 Normal >60 [facility] Comment on above: Performed By: #### P T, CMPX, MG, CDP #### [facility] [address] [place] [address] [phone] GFR,non Amer 56 mL/min Low >60 [facility] Comment on above: Performed By: #### P T, CMPX, MG, CDP #### [facility] [address] [place] [address] [phone] Glucose mass conc 128 mg/dL High 70-99 [facility] Comment on above: Performed By: #### P T, CMPX, MG, CDP #### [facility] [address] [place] [address] 98333 Potassium molar conc 3.6 mmol/L Low 3.7-5.3 [facility] Comment on above: Performed By: #### P T, CMPX, MG, CDP #### [facility] [address] [place] [address] 92318 Protein mass conc 5.5 g/dL Low 6.4-8.3 [facility] Comment on above: Performed By: #### P T, CMPX, MG, CDP #### [facility] [address] [place] [address] 08448 Sodium molar conc 134 mmol/L Low 135-144 [facility] Comment on above: Performed By: #### P T, CMPX, MG, CDP #### [facility] [address] [place] [address] [phone] Urea nitrogen mass conc 17 mg/dL Normal 6-20 [facility] Comment on above: Performed By: #### P T, CMPX, MG, CDP #### [facility] [address] [place] [address] [phone] BUN/CRE Ratio NOT REPORTED Normal - [facility] Comment on above: Performed By: #### P T, CMPX, MG, CDP #### [facility] [address] [place] [address] [phone] Staging: NOT REPORTED Normal [facility] Comment on above: Performed By: #### P T, CMPX, MG, CDP #### [facility] [address] [place] [address] [phone] Lactic Acid,Whole Blon 08-16 Lactic Acid,Whole Bl 1.2 mmol/L Normal 0.7-2.1 [facility] Comment on above: Performed By: #### L ACDS, TROPI, PRCAL, MYCM #### [facility] [address] [place] [address] 46032 Lactic Acid,Whole Bl 1.2 mmol/L Normal 0.7-2.1 [facility] Comment on above: Performed By: #### L ACWB #### [facility] [address] [place] [address] [phone] Magnesiumon 08-16-2018 Magnesium mass conc 2.0 mg/dL Normal 1.6-2.6 [facility] Comment on above: Performed By: #### L ACDS, TROPI, PRCAL, MYCM #### [facility] [address] [place] [address] [phone] Mycoplasma Ab,IgMon 08-16-20 18 Mycoplasma Ab,IgM 0.22 Normal <0.91 [facility] Comment on above: Result Comment: Reference Range: <=0.90 Negative 0.91-1.09 Equivocal >=1.10 Positive Performed By: #### L ACDS, TROPI, PRCAL, MYCM #### [address] [phone] PTon 08-16-2018 INR Coag RelTime (PPP) 1.0 {INR} Normal [facility] Comment on above: Result Comment: Therapeutic Range: Moderate Anticoagulant Intensity: INR = 2.0-3.0 High Anticoagulant Intensity: INR = 2.5-3.5 Performed By: #### P T, CMPX, MG, CDP #### [address] [id number] Prothrombin time (PT) Coag time (PPP) 11.0 s Normal 9.0-12.0 [facility] Comment on above: Performed By: #### P T, CMPX, MG, CDP #### [address] [id number] Troponinon 08-16-2018 Troponin I.cardiac mass conc Normal [facility] Comment on above: Result Comment: [...] diagnosis. Performed By: #### T ROPI #### [address] [id number] Troponin I.cardiac mass conc ng/mL Normal <0.03 [facility] Comment on above: Result Comment: Trop onin T results cannot be compared to Troponin-I results. Performed By: #### T ROPI #### [address] [id number] XR CHEST (2 VW)on 08-16-2018 XR CHEST [...] Noe Mitchell MD 08/16/18 Final result Normal [facility] Lactate, Sepsison 08-15-2018 Lactic Acid,Sep Wbld 3.5 mmol/L High 0.5-1.9 [facility] Comment on above: Performed By: #### L ACDS, TROPI, PRCAL, MYCM #### [facility] [address] [place] [address] [phone] Lactic Acid, Sepsis NOT REPORTED Normal 0.5-1.9 [facility] Comment on above: Performed By: #### L ACDS, TROPI, PRCAL, MYCM #### [employer] [address] [place] [address] [phone] Legionella Ag, Uron 08-15-20 18 Legionella Ag, [...] this test. Report Status FINAL 08/15/2018 Normal [facility] Comment on above: Performed By: #### U LAG #### [address] [id number] Procalcitoninon 08-15-2018 Protein mass conc 3.39 ng/mL High <0.09 [facility] Comment on above: Result Comment: [...] entered into the Change in Procalcitonin Calculator ([email or web address]) to determine the patient's Mortality Risk Prognosis Performed By: #### L ACDS, TROPI, PRCAL, MYCM #### [employer] [facility] [place], [place] [phone] Strep pneum Ag,CSF/Uron 08-05 Strep pneum Ag,CSF/Ur Specimen Description .CLEAN CATCH URINE Special Requests NOT REPORTED Direct Exam NEGATIVE: Strep pneumoniae antigen not detected Report Status FINAL 08/15/2018 Normal [facility] Comment on above: Performed By: #### S PAG #### [employer] [address] [place] [address] [phone] Troponinon 08-15-2018 Troponin I.cardiac mass conc ng/mL Normal <0.03 [facility] Comment on above: Result Comment: Trop onin T results cannot be compared to Troponin-I results. Performed By: #### L ACDS, TROPI, PRCAL, MYCM #### [employer] [address] [place] [address] [phone] Troponin I.cardiac mass conc Normal [facility] Comment on above: Result Comment: [...] #### L ACDS, TROPI, PRCAL, MYCM #### [employer] [facility] [place] [address] Urinalysison 11-18-2017 Bilirubin, Urine Negative Invalid Interpretation Code NEG;NEGATIVE [facility] Blood, Urine Moderate Abnormal NEG;NEGATIVE [facility] Interpretation and review of laboratory results Abnormal Invalid Interpretation Code [facility] Nitrite, Urine Negative Invalid Interpretation Code NEG;NEGATIVE [facility] Protein, Urine Negative Invalid Interpretation Code NEG;NEGATIVE mg/dL [facility] RBCs, Urine 1 /HPF Invalid Interpretation Code 0 - 5 [facility] Squamous Epithelial < 1 Invalid Interpretation Code 0 - 40 /HPF [facility] Urine, bacteria in sediment Rare Invalid Interpretation Code NS;RARE /HPF [facility] Urine, character Hazy Invalid Interpretation Code [facility] Urine, color Yellow Invalid Interpretation Code [facility] Urine, glucose presence Negative Invalid Interpretation Code NEG;NEGATIVE mg/dL [facility] Urine, ketones presence Negative Invalid Interpretation Code NEG;NEGATIVE mg/dL [facility] Urine, leukocyte esterase presence Small Abnormal Negative [facility] Urine, pH 6.0 [pH] Invalid Interpretation Code 4.5 - 8.0 [facility] Urine, specific gravity 1.014 1 Invalid Interpretation Code 1.003 - 1.029 [facility] Urobilinogen, Urine < 2.0 Invalid Interpretation Code <2 mg/dL [facility] WBCs, Urine 6 /HPF High 0 - 5 [facility] CBC and Differentialon 11-17 Basophils 0.7 % Invalid Interpretation Code [facility] Basophils 0.1 K/mcL Invalid Interpretation Code 0 - 0.2 [facility] Eosinophils 0.2 K/mcL Invalid Interpretation Code 0 - 0.5 [facility] Erythrocytes (RBC) 3.97 M/mcL Invalid Interpretation Code 3.7 - 5.0 [facility] Hematocrit (HCT) 35.7 % Invalid Interpretation Code 34.4 - 44.8 % [facility] Hemoglobin (HGB) 12.2 g/dL Invalid Interpretation Code 11.6 - 15.4 g/dL [facility] Interpretation and review of laboratory results Abnormal Invalid Interpretation Code [facility] Lymphocytes 2.1 K/mcL Invalid Interpretation Code 1.0 - 3.7 [facility] MCH 30.6 pg Invalid Interpretation Code 27.9 - 33.9 pg [facility] MCHC 34.0 g/dL Invalid Interpretation Code 33.1 - 35.1 g/dL [facility] MCV 89.8 fL Invalid Interpretation Code 82.6 - 98.9 [facility] Monocytes 0.6 K/mcL Invalid Interpretation Code 0.1 - 0.6 [facility] Neutrophils 6.6 K/mcL Invalid Interpretation Code 1.2 - 6.9 [facility] Platelet mean volume (PMV) 8.6 fL Invalid Interpretation Code 7.0 - 10.6 [facility] Platelets 196 K/mcL Invalid Interpretation Code 162 - 402 [facility] RDW-CA 15.0 % High 10 - 14.4 % [facility] Segmented Neut 69.6 % Invalid Interpretation Code [facility] T8 suppressor/100 cells 1.8 10*3/uL Invalid Interpretation Code [facility] T8 suppressor/100 cells 21.8 10*3/uL Invalid Interpretation Code [facility] T8 suppressor/100 cells 6.1 10*3/uL Invalid Interpretation Code [facility] WBC (Leukocytes) 9.5 K/mcL Invalid Interpretation Code 3.4 - 10.6 [facility] Comprehensive Metabolic Pane lyn 11-17-2017 Alanine aminotransferase (ALT) 18 U/L Invalid Interpretation Code 14 - 65 U/L [facility] Albumin 3.1 g/dL Low 3.2 - 5.2 g/dL [facility] Alkaline phosphatase (ALP) 78 U/L Invalid Interpretation Code 40 - 140 U/L [facility] Aspartate aminotransferase (AST) 7 U/L Invalid Interpretation Code 0 - 45 U/L [facility] Calcium 8.6 mg/dL Invalid Interpretation Code 8.4 - 10.2 mg/dL [facility] Chloride 106 mmol/L Invalid Interpretation Code 98 - 108 mmol/L [facility] CO2 27 mmol/L Invalid Interpretation Code 21 - 32 mmol/L [facility] Creatinine 1.13 mg/dL High 0.4 - 1.1 mg/dL [facility] eGFR (black) mL/min/{1.73_m2} Invalid Interpretation Code ml/min/1.73sq .m [facility] eGFR (non-black) 54 mL/min/{1.73_m2} Low >60 [facility] Glucose 113 mg/dL High 70 - 99 mg/dL [facility] Interpretation and review of laboratory results Abnormal Invalid Interpretation Code [facility] Potassium 3.7 mmol/L Invalid Interpretation Code 3.5 - 5.1 mmol/L [facility] Protein 6.8 g/dL Invalid Interpretation Code 6 - 8 g/dL [facility] Sodium 140 mmol/L Invalid Interpretation Code 135 - 145 mmol/L [facility] Urea nitrogen 17 mg/dL Invalid Interpretation Code 8 - 25 mg/dL [facility] Urine, bilirubin presence 0.4 mg/dL Invalid Interpretation Code 0.3 - 1.2 mg/dL [facility] Lipaseon 11-17-2017 Lipase 167 U/L Invalid Interpretation Code 73 - 393 U/L [facility] Vital Signs Date Time Vital Sign Value Performing Clinician Yovani mclaughlin 11-14-2024 11:31-0500 Body height 157.5 cm Fozia Meng PATTERN GRADER Work Phone: [facility] 11-14-2024 11:31-0500 Body mass index (BMI) [Ratio] 37.9 kg/m2 Fozia Meng PATTERN GRADER Work Phone: [facility] 11-14-2024 11:31-0500 Body weight 93.98 kg Fozia Meng PATTERN GRADER Work Phone: [facility] 11-14-2024 11:31-0500 Diastolic blood pressure 80 mm[Hg] Fozia Knutsongel PATTERN GRADER Work Phone: [facility] 11-14-2024 11:31-0500 Systolic blood pressure 134 mm[Hg] Fozia Meng PATTERN GRADER Work Phone: [facility] 10-11-2024 09:42-0500 Body height 157.5 cm Sherman Adair MD Work Phone: [facility] 10-11-2024 09:42-0500 Body mass index (BMI) [Ratio] 38.23 kg/m2 Sherman Adair MD Work Phone: [facility] 10-11-2024 09:42-0500 Body temperature 98.29 [degF] Sherman Adair MD Work Phone: [facility] 10-11-2024 09:42-0500 Body weight 94.8 kg Sherman Adair MD Work Phone: [facility] 09-14-2024 11:30-0500 Body height 157.5 cm Fozia Meng PATTERN GRADER Work Phone: [facility] 09-14-2024 11:30-0500 Body mass index (BMI) [Ratio] 39.91 kg/m2 Fozia Knutsongel PATTERN GRADER Work Phone: [facility] 09-14-2024 11:30-0500 Body weight 98.97 kg Fozia Meng PATTERN GRADER Work Phone: [facility] 09-14-2024 11:30-0500 Diastolic blood pressure 70 mm[Hg] Fozia Knutsongel PATTERN GRADER Work Phone: [facility] 09-14-2024 11:30-0500 Systolic blood pressure 140 mm[Hg] Fozia Knutsongel PATTERN GRADER Work Phone: [facility] 06-10-2024 10:09-0400 Body height 157.5 cm Tiffanie Casas MD Work Phone: [facility] 06-10-2024 10:09-0400 Body mass index (BMI) [Ratio] 38.96 kg/m2 Tiffanie Casas MD Work Phone: [facility] 06-10-2024 10:09-0400 Body weight 96.62 kg Tiffanie Casas MD Work Phone: [facility] 06-10-2024 10:09-0400 Diastolic blood pressure 84 mm[Hg] Tiffanie Casas MD Work Phone: [facility] 06-10-2024 10:09-0400 Systolic blood pressure 132 mm[Hg] Tiffanie Casas MD Work Phone: [facility] 05-10-2024 14:20-0400 Body height 157.5 cm Lore Ginger DO Work Phone: [facility] 05-10-2024 14:20-0400 Body mass index (BMI) [Ratio] 38.41 kg/m2 Lore Ginger DO Work Phone: [facility] 05-10-2024 14:20-0400 Body weight 95.25 kg Lore Ginger DO Work Phone: [facility] 05-10-2024 14:20-0400 Diastolic blood pressure 74 mm[Hg] Lore Ginger DO Work Phone: [facility] 05-10-2024 14:20-0400 Heart rate 83 /min Lore Ginger DO Work Phone: [facility] 05-10-2024 14:20-0400 SaO2% (BldA) [Mass fraction] 97 % Lore Ginger DO Work Phone: [facility] 05-10-2024 14:20-0400 Systolic blood pressure 118 mm[Hg] Lore Ginger DO Work Phone: [facility] 03-03-2023 14:44-0400 Body temperature 98.49 [degF] CJ Hassmann DPM Work Phone: [facility] 03-03-2023 14:44-0400 Diastolic blood pressure 87 mm[Hg] CJ Hassmann DPM Work Phone: [facility] 03-03-2023 14:44-0400 Heart rate 94 /min CJ Hassmann DPM Work Phone: [facility] 03-03-2023 14:44-0400 Systolic blood pressure 139 mm[Hg] CJ Hassmann DPM Work Phone: [facility] 07-02-2022 09:36-0400 Body height 157.5 cm [facility] Work Phone: [facility] 07-02-2022 09:36-0400 Body mass index (BMI) [Ratio] 38.67 kg/m2 [facility] Work Phone: [facility] 07-02-2022 09:36-0400 Body weight 95.89 kg [employer] Work Phone: [facility] 09-16-2020 20:53-0500 BMI (Body Mass Index) 39.32 kg/m2 [place] 09-16-2020 20:53-0500 Body Temperature 99.5 [degF] [place] 09-16-2020 20:53-0500 Body weight 97.52 kg [place] 09-16-2020 20:53-0500 BP Diastolic 109 mm[Hg] [place] 09-16-2020 20:53-0500 BP Systolic 189 mm[Hg] [place] 09-16-2020 20:53-0500 Height 157.5 cm [place] 09-16-2020 20:53-0500 Pulse (Heart Rate) 99 /min [place], [place] 09-16-2020 20:53-0500 Pulse Oximetry 96 % [place] 09-16-2020 20:53-0500 Respiratory Rate 18 /min [place] Encounters Encounter Date Encounter Type Care Provider Facility Start: 11-14-2024 End: 11-14-2024 Bamboo flowsheet Fozia Meng PATTERN GRADER Work Phone: [facility] Start: 11-14-2024 End: 11-14-2024 Bamboo flowsheet Fozia Meng PATTERN GRADER Work Phone: [facility] Start: 11-14-2024 End: 11-14-2024 Office outpatient visit 25 minutes Fozia Meng PATTERN GRADER Work Phone: [facility] Comment on above: BUCK on CPAP (Primary Dx); Idiopathic progressive polyneuropathy; Restless legs; Intractable 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 ([facility]/HCC) Start: 11-14-2024 End: 11-14-2024 ambulatory FOZIA MENG Not Available Start: 11-14-2024 End: 11-14-2024 [facility] Start: 11-14-2024 End: 11-14-2024 Subsequent hospital visit by physician Felipe Adam MD Work Phone: [facility] Laboratory Comment on above: Pre-diabetes; Mixed hyperlipidemia Start: 11-02-2024 End: 11-02-2024 Telephone encounter Janel Allen PATTERN GRADER Work Phone: [facility] [address] Start: 10-11-2024 End: 10-11-2024 Office outpatient new 45 minutes Felipe Adam MD Work Phone: [facility] Comment on above: Thyroid nodule (Prim misa Dx); Lipoma of neck Start: 10-11-2024 End: 10[facility]11[facility] Start: 10-05-2024 End: 10-06-2024 Preet Casas MD Work Phone: [facility] Comment on above: Idiopathic progressi ve polyneuropathy; Non-seasonal allergic rhinitis due to pollen Start: 09-14-2024 End: 09-14-2024 Bamboo flowsheet Fozia Meng PATTERN GRADER Work Phone: [facility] Start: 09-14-2024 End: 09-14-2024 Bamboo flowsheet Fozia Meng PATTERN GRADER Work Phone: [facility] Start: 09-14-2024 End: 09-14-2024 Telephone encounter Fozia Meng PATTERN GRADER Work Phone: [facility] Start: 09-14-2024 End: 09-14-2024 Office outpatient visit 25 minutes Fozia Meng PATTERN GRADER Work Phone: [facility] Comment on above: BUCK on CPAP (Primary Dx); Idiopathic progressive polyneuropathy; Intractable 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 (CMS/HCC); Restless legs; Bilateral carpal tunnel syndrome Start: 09-14-2024 End: 09-14-2024 ambulatory FOZIA Jamila HOWELLPIERCECHANTEL Not Available Start: 09-09-2024 End: 09-09-2024 Transcribe Orders Fozia Marcus [facility] Ashharlan rahman Comment on above: Thyroid nodule (Prim misa Dx) Start: 09-06-2024 End: 09-08-2024 ambulatory FELIPE ADAM [facility] Start: 09-06-2024 End: 09-08-2024 Subsequent hospital visit by physician Felipe Adam MD Work Phone: [facility] Ultrasound Comment on above: Thyroid nodule Start: 08-11-2024 End: 08-11-2024 Refill Tiffanie Casas MD Work Phone: [facility] Comment on above: Idiopathic progressi ve polyneuropathy; Non-seasonal allergic rhinitis due to pollen Start: 06-10-2024 End: 06-10-2024 Bamboo flowsheet Tiffanie Casas MD Work Phone: [facility] Start: 06-10-2024 End: 06-10-2024 Bamboo flowsheet Tiffanie Casas MD Work Phone: [facility] Start: 06-10-2024 End: 06-10-2024 Office outpatient visit 25 minutes Tiffanie Casas MD Work Phone: [facility] Comment on above: Idiopathic progressi ve polyneuropathy (Primary Dx); Bilateral carpal tunnel syndrome; Restless legs; Intractable 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 (CMS/HCC) Start: 06-10-2024 End: 06-10-2024 ambulatory TIFFANIE CASAS Not Available Start: 05-10-2024 End: 05-10-2024 ambulatory HEATHER FORBES [facility] Start: 05-10-2024 End: 05-10-2024 Subsequent hospital visit by physician Felipe Adam MD Work Phone: [facility] Start: 05-10-2024 End: 05-10-2024 Office outpatient [...] Available Start: 05-06-2024 End: 05-08-[address] [facility] Start: 05-02-2024 End: 05-02-2024 ambulatory [facility] Start: 03-02-2024 End: 03-02-2024 ambulatory [facility] BACK [facility] Start: 02-15-2024 End: 02-15-2024 ambulatory Frances Harris Facility:[facility] Start: 02-15-2024 End: 02-15-2024 ambulatory DPM Frances Harris Work Phone: [facility] Work Phone: Start: 02-15-2024 End: 02-15-2024 Departed Referred DPDieudonne Harris Work Phone: [facility] Start: 02-10-2024 End: 02-10-2024 ambulatory [facility] Start: 01-29-2024 End: 01-29-2024 ambulatory [facility]IPE BACK [facility] Start: 06-15-2023 End: 06-15-2023 Subsequent hospital visit by physician Felipe Adam MD Work Phone: [facility] Comment on above: Mixed hyperlipidemia Start: 04-03-2023 ambulatory FELIPE BACK [facility] Start: 03-03-2023 End: 03-03-2023 Office outpatient new 45 minutes MASSIMO GARCIAM Work Phone: [facility] Comment on above: Charcot arthropathy of midfoot (Primary Dx); Gastrocnemius equinus, unspecified laterality; Foot pain, left Start: 02-11-2023 End: 02-12-2023 ambulatory [facility] Facility:H1 Start: 02-05-2023 End: 02-05-2023 Subsequent hospital visit by physician Felipe Adam MD Work Phone: [facility] Laboratory Comment on above: Pelvic pressure in f cleole Start: 02-04-2023 End: 02-05-2023 ambulatory [facility] Facility:[facility]1 Start: 01-28-2023 End: 01-29-2023 ambulatory [facility] Facility:[facility]1 Start: 01-06-2023 End: 01-06-2023 Emergency department patient visit [facility] Start: 07-09-2022 End: 07-09-2022 Subsequent hospital visit by physician Samantha Lino RD, LD Work Phone: [facility] Diet and Nutrition Comment on above: Arrived Start: 07-02-2022 End: 07-02-2022 Subsequent hospital visit by physician [facility] Diabetes Education Work Phone: [facility] Diabetic Education Start: 06-25-2022 End: 06-27-2022 Subsequent hospital visit by physician [facility] Additional Xray At [facility] Radiology Comment on above: Foreign body (FB) in soft tissue Start: 06-25-2022 End: 06-27-2022 Subsequent hospital visit by physician [facility] Mri Scanner [facility] MRI Comment on above: Pain of foot, unspec ified laterality; Closed nondisplaced fracture of second metatarsal bone of left foot, initial encounter; Closed nondisplaced fracture of lateral cuneiform of left foot, initial encounter Start: 05-27-2022 End: 2022 Subsequent hospital visit by physician [facility] Ultrasound Room [facility]ound Comment on above: Neck mass Start: 04-28-2022 End: 04-29-2022 ambulatory [facility] Start: 04-28-2022 End: 04-28-2022 Subsequent hospital [...] Start: 02-04-2022 End: 02-04-2022 Patient encounter procedure [facility] [address] Start: 02-03-2022 End: 02-03-2022 Subsequent hospital visit by physician Hilaria Trujillo [facility] Start: 01-29-2022 End: 01-29-2022 Subsequent hospital visit by physician Beverly Rangel EQUIPMENT SPECIALIST [facility] Comment on above: Arrived Start: 01-27-2022 End: 01-27-2022 Subsequent hospital visit by physician Christel Donohue PT [facility] Comment on above: Arrived Start: 01-24-2022 End: 01-24-2022 Subsequent hospital visit by physician Vanessa Garcia PT [facility] Comment on above: Arrived Start: 01-22-2022 End: 01-22-2022 Subsequent hospital visit by physician Beverly Rangel EQUIPMENT SPECIALIST [facility] Start: 01-17-2022 End: 01-17-2022 Subsequent hospital visit by physician Beverly Rangel EQUIPMENT SPECIALIST [facility] Comment on above: Arrived Start: 01-13-2022 End: 01-13-2022 Subsequent hospital visit by physician Christel Donohue PT [facility] Start: 01-03-2022 End: 01-03-2022 Subsequent hospital visit by physician Beverly Rangel EQUIPMENT SPECIALIST [facility] Comment on above: Arrived [...] Start: 11-29-2021 End: 11-29-2021 ambulatory FELIPE ADAM [facility] Start: 08-01-2021 End: 08-01-2021 Subsequent hospital [...] End: 02-13-2021 Subsequent hospital visit by physician Tennille Carbone Pat Screening Schedule [facility] Comment on above: Suspected COVID-19 v irus infection Start: 01-21-2021 End: 01-21-2021 Subsequent hospital visit by physician Tennille Ashraf19 Pat Screening Schedule [facility] Comment on above: Viral illness Start: 11-15-2020 End: 11-15-2020 Subsequent hospital visit by physician Tennille Ashraf19 Pat Screening Schedule [facility] PRE ADMIT Comment on above: Arrived Start: 09-16-2020 End: 09-16-2020 Emergency department patient visit Robbin Rooney Work Phone: [facility] ED Comment on above: Acute thoracic back pain, unspecified back pain laterality (Primary Dx) Start: 08-24-2020 End: 08-24-2020 Subsequent hospital visit by physician Felipe Adam [facility] Laboratory Comment on above: Epidural abscess Start: 08-08-2020 End: 08-08-2020 Subsequent hospital visit by physician Felipe Adam [facility] Laboratory Comment on above: SOB (shortness of br eath) Start: 07-24-2020 End: 07-24-2020 Subsequent hospital visit by physician Felipeabril Adam [facility] Laboratory Comment on above: Epidural abscess Start: 06-07-2020 End: 06-07-2020 Subsequent hospital visit by physician Felipe Adam [facility] Start: 05-25-2020 End: 05-25-2020 Subsequent hospital visit by physician Felipe Back [facility] Laboratory Comment on above: Vitamin D deficiency ; Mixed hyperlipidemia; Hyperglycemia Start: 12-14-2019 End: 12-14-2019 Subsequent hospital visit by physician Felipe Adam [facility] Laboratory Comment on above: MRSA (methicillin re sistant Staphylococcus aureus) septicemia (HCC) Start: 09-24-2019 End: 09-24-2019 Subsequent hospital visit by physician Felipe Adam MD Work Phone: [facility] Start: 09-12-2019 End: 09-12-2019 Subsequent hospital visit by physician Felipe Adam MD Work Phone: [facility] SLEEP LAB Start: 08-29-2019 End: 08-29-2019 Subsequent hospital visit by physician [facility] Schedule [facility] SLEEP LAB Comment on above: Arrived Start: 07-28-2019 End: 07-30-2019 Subsequent hospital visit by physician Serenity Additional X[facility] Radiology Comment on above: MRSA (methicillin re sistant Staphylococcus aureus) septicemia (HCC) Start: 06-17-2019 End: 06-17-2019 Subsequent hospital visit by physician Felipe Adam [facility] Laboratory Comment on above: MRSA (methicillin re sistant Staphylococcus aureus) infection Start: 02-03-2019 End: 02-04-2019 Patient encounter procedure [facility] Start: 02-03-2019 End: 02-03-2019 Subsequent hospital visit by physician Tiffanie Casas Work Phone: [facility] MRI Comment on above: Brachial neuritis; Peripheral nerve disorder; Spasm of muscle Start: 11-10-2018 End: 11-10-2018 Patient encounter procedure Andrey Early Facility:[facility] Start: 10-18-2018 End: 10-18-2018 Patient encounter procedure Andrey Early Work Phone: [facility] Start: 10-03-2018 Patient encounter procedure Dav Hartman Facility:[facility] Start: 10-03-2018 End: 10-03-2018 Patient encounter procedure Felipe Back [facility] Start: 09-20-2018 End: 09-21-2018 Patient encounter procedure Gosia Hartman Facility:[facility] Start: 09-20-2018 Patient encounter procedure Facility:[id number] Start: 09-13-2018 Patient encounter procedure GOSIA HARTMAN [facility] Start: 09-06-2018 End: 09-06-2018 Patient encounter procedure Historical Provider [facility] Start: 08-31-2018 End: 08-31-2018 Patient encounter procedure [facility] Provider [facility] Start: 08-27-2018 End: 08-28-2018 Patient encounter procedure Gosia Hartman Facility:[facility] Start: 08-27-2018 Patient encounter procedure Facility:[id number] Start: 08-15-2018 End: 08-25-2018 [facility] Start: 04-02-2018 End: 04-02-2018 Patient encounter procedure Melchor Calderon Facility:[facility] Start: 03-23-2018 Patient encounter procedure Shanice Juares Facility:[facility] Start: 02-04-2018 End: 02-04-2018 Ambulatory Melchor Calderon [facility] Start: 11-24-2017 Patient encounter procedure GAYE KYLESEB [facility] Start: 11-17-2017 End: 11-17-2017 Ambulatory Ceferino Corley Work Phone: [facility] Start: 10-20-2017 End: 10-20-2017 Ambulatory DAKSHA BETANCOURT [facility] Start: 10-20-2017 Patient encounter procedure [facility] Start: 10-09-2017 Ambulatory [facility] Start: 10-09-2017 End: 10-09-2017 Patient encounter procedure [facility] Start: 09-16-2017 Patient encounter procedure [facility] Start: 08-03-2017 Ambulatory [facility] Start: 03-31-2017 End: 03-31-2017 Ambulatory SHANICE GOLDSTEIN [facility] Procedures Date Procedure Procedure Detail Performing Clinician Start: 11-14-2024 Comprehensive metabo lic panel Felipe Adam MD Work Phone: Start: 11-14-2024 Lipid panel Felipe Adam MD Work Phone: Start: 09-06-2024 Us soft tissue head & neck real time imge haven Adam MD Work Phone: Start: 05-10-2024 Renal function panel Soumya Forbes [...] Work Phone: Start: 01-21-2021 COVID-19 Pattie benderms SUPERVISOR BUFFING AND PASTING - RETAIL PHARMACY MANAGER Work Phone: Start: 11-15-2020 COVID-19 Dav flores Work Phone: Start: 09-16-2020 Urnls dip stick/tabl et rgnt auto w/o microscopy Robbin Rooney Work Phone: Start: 09-16-2020 End: 09-16-2020 Blood count complete auto&auto difrntl wbc Robbin Rooney Work Phone: Start: 09-16-2020 Sedimentation rate r bc automated Robbin Rooney Work Phone: Start: 08-24-2020 Blood count complete auto&auto difrntl wbc Gosia Hratman Work Phone: Start: 08-24-2020 C-reactive protein Gosia Hartman Work Phone: Start: 08-24-2020 Sedimentation rate r bc automated GosiaTae Hartman Work Phone: Start: 07-24-2020 Blood count complete auto&auto difrntl wbc Ogsiachasity Hartman Work Phone: Start: 07-24-2020 C-reactive protein [...] 09-24-2019 Hemoglobin glycosyla jamia a1c Janel Allen SUPERVISOR BUFFING AND PASTING - RETAIL PHARMACY MANAGER Work Phone: Start: 09-24-2019 VITAMIN B12 & FOLATE Ja danny Allen SUPERVISOR BUFFING AND PASTING - RETAIL PHARMACY MANAGER Work Phone: Start: 07-28-2019 Radex spine cervical 4 or 5 views Azalea Longthorne Work Phone: Start: 07-28-2019 Blood count complete auto&auto difrntl wbc Azalea Knight SUPERVISOR BUFFING AND PASTING - RETAIL PHARMACY MANAGER Work Phone: Start: 07-28-2019 C-reactive protein Azalea Knight SUPERVISOR BUFFING AND PASTING - RETAIL PHARMACY MANAGER Work Phone: Start: 06-17-2019 Albumin serum plasma /whole blood Heather Forbes Work Phone: Start: 06-17-2019 Assay of magnesium Soumyaap na nAdrei Work Phone: Start: 06-17-2019 Assay of phosphorus [...] Unless otherwise noted, all testing performed by [facility] [address] [place], [place] [address] CLIA: [id number] Aluminum Polisher: Harshad Solaon M.D. Start: 09-06-2018 End: 09-06-2018 LABS (OUTSIDE) [...] CONTINUOUS JV APPLE Start: 08-18-2018 TELEMETRY MONITORING DC BRENDA APPLE Start: 08-18-2018 INCENTIVE SPIROMETRY RT [...] Start: 08-17-2018 INITIATE OXYGEN THER APY PROTOCOL VJ APPLE Start: 08-17-2018 PULSE OXIMETRY, CONTINUOUS JV [...] CONTINUOUS JV APPLE Start: 08-16-2018 CONTACT ISOLATION TOESAMIR Dieudonne APPLE Start: 08-16-2018 Assay of lactate JV [...] Treatment Date Care Activity Detail Author Start: 11-14-2029 Lipid panel Lipids [facility] [employer] Start: 2029 Shingles Vaccine (1 of 2) Shingles Vaccine (1 of 2) [facility] [place] Start: 05-02-2029 Lipid panel Lipids [facility] [employer] Start: 12-10-2027 Screening for malignant neoplasm of colon [facility] Start: 04-12-2027 Lipid panel Lipids [facility] [employer] [facility] Start: 05-14-2026 Lipid panel [facility] Start: 11-14-2025 GFR test (Diabetes, CKD 3-4, OR last GFR 15-59) GFR test (Diabetes, CKD 3-4, OR last GFR 15-59) [facility] Start: 11-14-2025 Hemoglobin A1c measurement A1C test (Diabetic or Prediabetic) [facility] Start: 10-12-2025 End: 10-12-2025 Patient encounter procedure 10/12/2025 10:30 AM EST Office Visit [facility] [address] [place] [address] [place] [address] Sherman Adair MD [address] [place] [address] [facility] Start: 10-11-2025 End: 10-11-2026 US Head and neck soft tissue US Soft Tissue Neck Imaging Routine Thyroid nodule Expected: 10/11/2025, Expires: 10/11/2026 [facility] Work Phone: Comment on above: Expected: 10/11/2025, Expires: Start: 05-25-2025 Lipid panel Lipid screen [facility], [place] Start: 05-10-2025 GFR test (Diabetes, CKD 3-4, OR last GFR 15-59) GFR test (Diabetes, CKD 3-4, OR last GFR 15-59) [facility] Start: 05-02-2025 Hemoglobin A1c measurement A1C test (Diabetic or Prediabetic) [facility] Start: 02-13-2025 End: 02-13-2025 Patient encounter procedure 02/13/2025 1:00 PM EDT Office Visit [facility] [address] [place] [address] Tiffanie Casas MD [address] [place] [address] [facility] Start: 01-27-2025 Depression Monitoring Depression Monitoring [facility] Start: 11-15-2024 End: 11-15-2024 Patient encounter procedure 11/15/2024 2:45 PM EST Office Visit [facility] [address] [place] [address] Fleipe Adam MD [address] [place] [address] 6 mo [facility] Comment on above: 6 mo Start: 11-14-2024 End: 11-14-2024 Patient encounter procedure [facility] [place] [facility] Comment on above: Arrived Start: 11-11-2024 End: 11-11-2024 Patient encounter procedure 11/11/2024 1:00 PM EST Office Visit [facility] [address] [place] [address] Felipe Adam MD [address] [place] [address] 6 mo [facility] Comment on above: 6 mo Start: 09-24-2024 Screening for malignant neoplasm of cervix [facility] Start: 09-14-2024 End: 09-14-2024 Patient encounter procedure 09/14/2024 11:20 AM EST Office Visit [facility] [address] [place] [address] Fozia Meng, PATTERN GRADER [address], [facility] [address] [place] [phone] Arrived [facility] Comment on above: Arrived Start: 09-08-2024 DTaP/Tdap/Td vaccine (2 - Td or Tdap) DTaP/Tdap/Td vaccine (2 - Td or Tdap) [facility] Start: 09-08-2024 DTaP/Tdap/Td vaccine (2 - Td) DTaP/Tdap/Td vaccine (2 - Td) [facility] [place], [place] Start: 09-08-2024 Tetanus vaccination [facility] Start: 09-05-2024 End: 09-05-2024 Patient encounter procedure 09/05/2024 1:00 PM EST Office Visit [facility] [address] [facility] [address] [place] [phone] Tiffanie Casas MD [address], [place] [address] [facility] Start: 08-18-2024 End: 08-18-2024 Patient encounter procedure 08/18/2024 1:30 PM EST Office Visit [facility] Urology [address] [facility] [address] [place] [address] Luis Mclean, PA-C [address] [place] [address] 1 yr med chk [facility] Comment on above: 1 yr med chk Start: 08-02-2024 End: 08-02-2024 Patient encounter procedure 08/02/2024 10:45 AM EDT Office Visit [facility] [address] [place] [phone] Lore Miles DO [address] [place] [address] [facility] Start: 07-11-2024 End: 07-11-2024 Telemedicine consultation with patient 07/11/2024 11:30 AM EDT Telemedicine [facility] [address], [place] [phone] Janel Allen PATTERN GRADER [address], [place] [address] [facility] [address] Start: 06-10-2024 End: 06-10-2024 Patient encounter procedure 06/10/2024 10:20 AM EDT Office Visit [facility] [address] [facility] [address] [place] [address] Tiffanie Casas MD [address] [place] [address] Arrived [facility] Comment on above: Arrived Start: 06-05-2024 COVID-19 Vaccine ( season) COVID-19 Vaccine ( season) [facility] Start: 06-05-2024 COVID-19 Vaccine () COVID-19 Vaccine ( season) [facility] Start: 06-05-2024 Influenza vaccination Influenza Vaccine (#1) [facility] Start: 2024 Screening for malignant neoplasm of colon [facility] Start: 05-17-2024 GFR test (Diabetes, CKD 3-4, OR last GFR 15-59) GFR test (Diabetes, CKD 3-4, OR last GFR 15-59) [facility] Start: 05-14-2024 Diabetes screen Diabetes screen [facility] Start: 05-12-2024 End: 05-12-2024 Patient encounter procedure 05/12/2024 11:00 AM EDT Office Visit [facility] PUL Part of [place] [id number] Lina Echols MD [address] [facility] [address] [place] [address] BUCK (obstructive sleep apnea) [facility] PUL Part of [facility] Comment on above: BUCK (obstructive sleep apnea) Start: 05-11-2024 Lipid panel Lipid screen [facility] [place] Start: 05-11-2024 Lipid screen Lipid screen [facility] [place] Start: 05-05-2024 Influenza vaccination Flu vaccine (#1) [facility] Start: 03-23-2024 Depression Monitoring Depression Monitoring [facility] Start: 02-06-2024 GFR test (Diabetes, CKD 3-4, OR last GFR 15-59) GFR test (Diabetes, CKD 3-4, OR last GFR 15-59) [facility] Start: 02-06-2024 Hemoglobin A1c measurement A1C test (Diabetic or Prediabetic) [facility] Start: 08-13-2023 End: 08-13-2023 Patient encounter procedure [facility] Start: 06-22-2023 End: 06-22-2023 Patient encounter procedure 06/22/2023 11:15 AM EDT Office Visit [facility] [address] [place] [address] Felipe Adam MD [address] [place] [address] [facility] Start: 06-05-2023 Influenza vaccination Sequential Influenza Vaccine (Season Ended) [facility] Start: 05-05-2023 Influenza vaccination [facility] Start: 04-14-2023 End: 04-14-2023 Patient encounter procedure 04/14/2023 Office Visit Family Medicine Felipe Adam MD [address] [place] [address] [facility] Start: 04-12-2023 Hemoglobin A1c measurement A1C test (Diabetic or Prediabetic) [facility] Start: 04-11-2023 Depression Monitoring Depression Monitoring [facility] Start: 04-11-2023 History and physical examination, annual for health maintenance Wellness Visit [facility] Start: 12-25-2022 End: 12-25-2022 Patient encounter procedure 12/25/2022 Office Visit Infectious Diseases Dav Hartman MD [address] [address] [facility]. Start: 09-24-2022 Diabetes screen Diabetes screen [facility], [place] Start: 08-07-2022 End: 08-07-2022 Patient encounter procedure 08/07/2022 Office Visit Urology Luis Mclean PA-C [address] [place] [address] [facility] Start: 07-15-2022 End: 07-15-2022 Nursing evaluation of patient and report 07/15/2022 Nurse Only Family Medicine [facility] Start: 07-09-2022 End: 07-09-2022 Patient encounter procedure 07/09/2022 Appointment IP Unit Samantha Lino, RD, LD [facility] Start: 06-05-2022 Influenza [facility] Start: 05-20-2022 Creatinine measurement [facility] Start: 05-20-2022 Potassium [Moles/volume] in Serum or Plasma Potassium [employer] Start: 05-20-2022 Potassium monitoring Potassium monitoring [employer] Start: 05-14-2022 Creatinine measurement Creatinine monitoring [facility] Work Phone: Start: 05-14-2022 Potassium monitoring Potassium monitoring [employer] Work Phone: Start: 05-05-2022 Influenza vaccination Flu vaccine (#1) [facility] Start: 03-20-2022 Screening for malignant neoplasm of cervix [facility] Start: 02-05-2022 End: 02-05-2022 Patient encounter procedure 02/05/2022 Appointment Physical Therapy Christel Donohue PT [facility] Start: 02-03-2022 End: 02-03-2022 Patient encounter procedure [facility] Start: 01-30-2022 End: 01-30-2022 Patient encounter procedure [facility] [facility] Start: 01-29-2022 End: 01-29-2022 Patient encounter procedure 01/29/2022 Appointment Physical Therapy Beverly Rangel PTA [facility] Start: 01-27-2022 End: 01-27-2022 Patient encounter procedure 01/27/2022 Appointment Physical Therapy Christel Donohue PT [facility] Start: 01-24-2022 End: 01-24-2022 Patient encounter procedure 01/24/2022 Appointment Physical Therapy Vanessa Garcia, PT [facility] Start: 01-22-2022 End: 01-22-2022 Patient encounter procedure 01/22/2022 Appointment Physical Therapy Beverly Rangel EQUIPMENT SPECIALIST [facility] Start: 01-17-2022 End: 01-17-2022 Patient encounter procedure 01/17/2022 Appointment Physical Therapy Beverly Rangel EQUIPMENT SPECIALIST [facility] Start: 01-10-2022 End: 01-10-2022 Patient encounter procedure 01/10/2022 Appointment Physical Therapy Christel Donohue, PT [facility] Start: 01-08-2022 End: 01-08-2022 Patient encounter procedure 01/08/2022 Appointment Physical Therapy Beverly Rangel EQUIPMENT SPECIALIST [facility] Start: 01-02-2022 End: 01-02-2022 Patient encounter procedure 01/02/2022 Appointment Occupational Therapy Judi Marie OTA [address] [place] [address] [place] [address] [facility] Start: 12-31-2021 Diabetes screen Diabetes screen [place], [place] Start: 12-31-2021 End: 12-31-2021 Patient encounter procedure [facility] Start: 12-30-2021 End: 12-30-2021 Patient encounter procedure 12/30/2021 Appointment Occupational Therapy Lore Herman OT [facility] Start: 12-27-2021 End: 12-27-2021 Patient encounter procedure 12/27/2021 Appointment Occupational Therapy Eve Gaspar OTA [facility] Start: 11-14-2021 End: 11-14-2021 Patient encounter procedure 11/14/2021 Office Visit Family Medicine Felipe Adam MD [address] [place] [address] [phone] [facility] Start: 10-29-2021 Depression Monitoring Depression Monitoring [facility] Start: 09-16-2021 Creatinine measurement Creatinine monitoring [facility] Work Phone: Start: 09-16-2021 Potassium monitoring Potassium monitoring [email or web address] Phone: Start: 08-01-2021 End: 08-01-2021 Patient encounter procedure 08/01/2021 Office Visit Urology Lita Weeks MD [address] [facility], [address] [place] [address] [employer] [facility] Start: 06-05-2021 Influenza vaccination [employer] Start: 05-25-2021 Creatinine measurement Creatinine monitoring [employer] [place], [place] Start: 05-25-2021 HbA1c (Bld) [Mass fraction] A1C test (Diabetic or Prediabetic) [facility] [employer] [place], TIFF Start: 05-25-2021 Hemoglobin A1c measurement A1C test (Diabetic or Prediabetic) [email or web address] Phone: Start: 05-25-2021 Potassium monitoring Potassium monitoring [facility] [employer] [place], TI[place] Start: 11-13-2020 End: 11-13-2020 Office Visit 11/13/2020 Office Visit Family Medicine Felipe Adam MD [address] [place] [address] [phone] [facility] Start: 11-02-2020 Potassium monitoring Potassium monitoring [employer] [place], [place] Start: 10-23-2020 End: 10-23-2020 Office Visit 10/23/2020 Office Visit Infectious Diseases Dav Hartman MD [address] [address] [phone] [facility]. Start: 09-24-2020 HbA1c (Bld) [Mass fraction] A1C test (Diabetic or Prediabetic) [employer] [place], TI[place] Start: 06-17-2020 Creatinine measurement Creatinine monitoring [employer] [place], [place] Start: 06-17-2020 Creatinine monitoring Creatinine monitoring [employer] [place] , [place] Start: 06-17-2020 Potassium monitoring Potassium monitoring [employer] [place], [place] Start: 06-12-2020 End: 06-12-2020 Office Visit 06/12/2020 Office Visit Infectious Diseases Dav Hartman MD [address] [place] [address] [phone] [facility] Start: 06-05-2020 Influenza vaccination Flu vaccine (#1) [place], [place] Start: 03-20-2020 Cervical cancer screen Cervical cancer screen [place] Start: 03-20-2020 Screening for malignant neoplasm of cervix [facility] Start: 11-01-2019 End: 11-01-2019 Office Visit 11/01/2019 Office Visit Infectious Diseases aDv Hartman MD [address] [place] [address] [phone] [facility] Start: 07-28-2019 End: 07-28-2019 Office Visit 07/28/2019 Office Visit Infectious Diseases Dav Hartman MD [address] [place] [address] [phone] [facility] Start: 06-27-2019 End: 06-27-2019 Nurse Only 06/27/2019 Nurse Only Family Medicine [facility] Start: 06-05-2019 Influenza vaccination Flu vaccine (#1) [place] Start: 06-05-2019 Influenza vaccination given SEQUENTIAL INFLUENZA VACCINE (Season Ended) [facility] Start: 2019 Screening for malignant neoplasm of breast [facility] Start: 06-05-2018 Influenza vaccination INFLUENZA VACCINE (#1) [facility] Work Phone: Start: 03-23-2018 End: 03-23-2018 Ambulatory [facility] Start: 2009 Screening for malignant neoplasm of cervix HPV (without or with Pap) [facility] Start: 2000 Screening for malignant neoplasm of cervix PAP SMEAR DISCUSSION [facility] Work Phone: Start: 1998 Hepatitis B vaccine (1 of 3 - 19+ 3-dose series) Hepatitis B vaccine (1 of 3 - 19+ 3-dose series) [facility] Start: 1998 Third diphtheria, tetanus and acellular pertussis (DTaP) vaccination TDAP (ADULT) [facility] Work Phone: Start: 1997 Hepatitis C screening Hepatitis C Screening [facility] Start: 1997 Tetanus vaccination TETANUS [facility] Work Phone: Start: 1995 COVID-19 Vaccine (1) COVID-19 Vaccine (1) [employer] Work Phone: Start: 1994 HIV screen HIV screen [employer] [place] Start: 1994 HIV screening HIV screen [facility] Start: 1992 HIV screening HIV SCREENING DISCUSSION [facility] Work Phone: Start: 1991 COVID-19 Vaccine (1) COVID-19 Vaccine (1) [employer] Work Phone: Start: 1991 Depression Monitoring Depression Monitoring [facility] [employer] Start: 1991 Depression screening using PHQ-9 (Patient Health Questionnaire 9) score [facility] Start: 1989 Urine screening for protein Urine Microalbumin [facility] Start: 1985 Pneumococcal Vaccine: Ped or At-Risk (1 - PCV) Pneumococcal Vaccine: Ped or At-Risk (1 - PCV) [facility] Start: 1984 COVID-19 Vaccine (1) COVID-19 Vaccine (1) [employer] Start: 1982 History and physical examination, annual for health maintenance Wellness Visit [facility] Start: 1979 COVID-19 Vaccine (#1) COVID-19 Vaccine (#1) [employer] Start: 1979 Hepatitis B vaccine (1 of 3 - 3-dose series) Hepatitis B vaccine (1 of 3 - 3-dose series) [facility] [employer] Start: 1979 Screening for malignant neoplasm of colon [facility] End: 02-13-2021 COVID-19 COVID-19 Lab Routine Suspected COVID-19 virus infection 1 Occurrences starting 02/13/2021 until 02/13/2021 [facility] Work Phone: Comment on above: 1 Occurrences starting 02/13/2021 until 02/13/2021 COVID-19 COVID-19 Lab [place] l[place] Suspected COVID-19 virus infection 02/13/2021 3:06 PM EDT [email or web address] Phone: End: 08-08-2020 COVID-19 Ambulatory COVID-19 Ambulatory Lab Routine SOB (shortness of breath) 1 Occurrences starting 08/08/2020 until 08/08/2020 [employer] Comment on above: 1 Occurrences starting 08/08/2020 until 08/08/2020 COVID-19 Ambulatory COVID-19 Amb ulatory Lab Routine SOB (shortness of breath) 08/08/2020 4:02 PM EST [facility] [place] [place] End: 05-20-2021 Creatinine [Mass/volume] in Urine Creatinine, Random Urine Lab Routine Once for 1 Occurrences starting 05/20/2021 until 05/20/2021 [email or web address] Phone: Comment on above: Once for 1 Occurrences starting 05/20/20 21 until 05/20/2021 Creatinine [Mass/vol ume] in Urine Creatinine, Random Urine Lab Routine 05/20/2021 7:57 PM EDT [email or web address] Phone: End: 04-13-2021 Culture, Urine Culture, Urine Microbiology Routine Acute cystitis with hematuria 1 Occurrences starting 04/13/2021 until 04/13/2021 [email or web address] Phone: Comment on above: 1 Occurrences starting 04/13/2021 until 04/13/2021 Culture, Urine [email or web address] Phone: End: 05-27-2021 Culture, Urine Culture, Urine Microbiology Routine Difficult or painful urination 1 Occurrences starting 05/27/2021 until 05/27/2021 [email or web address] Phone: Comment on above: 1 Occurrences starting 05/27/2021 until 05/27/2021 End: 06-11-2021 Culture, Urine Culture, Urine Microbiology Routine Acute cystitis with hematuria Recurrent UTI 1 Occurrences starting 06/11/2021 until 06/11/2021 [email or web address] Phone: Comment on above: 1 Occurrences starting 06/11/2021 until 06/11/2021 End: 07-11-2021 Culture, Urine Culture, Urine Microbiology Routine Frequent UTI Urinary urgency Urinary frequency 1 Occurrences starting 07/11/2021 until 07/11/2021 [email or web address] Phone: Comment on above: 1 Occurrences starting 07/11/2021 until 07/11/2021 End: 08-01-2021 Culture, Urine Culture, Urine Microbiology Routine Frequent UTI Urinary urgency Urinary frequency 1 Occurrences starting 08/01/2021 until 08/01/2021 [email or web address] Phone: Comment on above: 1 Occurrences starting 08/01/2021 until 08/01/2021 End: 04-28-2022 Culture, Urine Culture, Urine Microbiology Routine Acute cystitis with hematuria 1 Occurrences starting 04/28/2022 until 04/28/2022 [employer] Phone: Comment on above: 1 Occurrences starting 04/28/2022 until 04/28/2022 End: 02-05-2023 Culture, Urine [employer] Phone: Comment on above: 1 Occurrences starting 02/05/2023 until 02/05/2023 End: 04-12-2022 Hemoglobin A1c/Hemoglobin.total in Blood [employer] Phone: Comment on above: 1 Occurrences starting 04/12/2022 until 04/12/2022 End: 02-05-2023 Hemoglobin A1c/Hemoglobin.total in Blood [employer] Phone: Comment on above: Once for 1 Occurrences starting 02/06/20 until 02/05/2023 End: 08-29-2019 Home Sleep Study Home Sleep Study Sleep Center Routine One Time for 1 Occurrences starting 08/29/2019 until 08/29/2019 [facility] [place] Comment on above: One Time for 1 Occurrences starting 08/06 until 08/29/2019 End: 09-24-2019 Methylmalonic Acid, Serum Methylmalonic Acid, Serum Lab Routine Once for 1 Occurrences starting 09/24/2019 until 09/24/2019 [email or web address] Phone: Comment on above: Once for 1 Occurrences starting 09/24/20 until 09/24/2019 Methylmalonic Acid, Serum Methyl malonic Acid, Serum Lab Routine 09/24/2019 9:33 AM [email or web address] Phone: End: 09-24-2019 Nuclear Ab [Titer] in Serum by Immunofluorescence ALICJA Lab Routine Once for 1 Occurrences starting 09/24/2019 until 09/24/2019 [email or web address] Phone: Comment on above: Once for 1 Occurrences starting 09/24/20 until 09/24/2019 Nuclear Ab [Titer] i n Serum by Immunofluorescence ALICJA Lab Routine 09/24/2019 9:33 AM [email or web address] Phone: End: 05-20-2021 Protein, urine, random Protein, urine, random Lab Routine Once for 1 Occurrences starting 05/20/2021 until 05/20/2021 [email or web address] Phone: Comment on above: Once for 1 Occurrences starting 05/20/20 until 05/20/2021 Protein, urine, random Protein, urine, random Lab Routine 05/20/2021 7:57 PM EDT [email or web address] Phone: End: 12-14-2019 Sedimentation Rate Sedimentation Rate Lab Routine MRSA (methicillin resistant Staphylococcus aureus) septicemia (HCC) 1 Occurrences starting 12/14/2019 until 12/14/2019 [employer] Comment on above: 1 Occurrences starting 12/14/2019 until 12/14/2019 Sedimentation Rate Sedimentation Rate Lab Routine MRSA (methicillin resistant Staphylococcus aureus) septicemia (HCC) 12/14/2019 12:39 PM EDT [employer] End: 09-24-2019 Sjogrens syndrome-A extractable nuclear antibody Sjogrens syndrome-A extractable nuclear antibody Lab Routine Once for 1 Occurrences starting 09/24/2019 until 09/24/2019 [email or web address] Phone: Comment on above: Once for 1 Occurrences starting 09/24/20 until 09/24/2019 Sjogrens syndrome-A extractable nuclear antibody Sjogrens syndrome-A extractable nuclear antibody Lab Routine 09/24/2019 9:33 AM [email or web address] Phone: End: 09-24-2019 Sjogrens syndrome-B extractable nuclear antibody Sjogrens syndrome-B extractable nuclear antibody Lab Routine Once for 1 Occurrences starting 09/24/2019 until 09/24/2019 [email or web address] Phone: Comment on above: Once for 1 Occurrences starting 09/24/20 until 09/24/2019 Sjogrens syndrome-B extractable nuclear antibody Sjogrens syndrome-B extractable nuclear antibody Lab Routine 09/24/2019 9:33 AM [email or web address] Phone: End: 09-12-2019 Sleep Study with PAP Titration Sleep Study with PAP Titration Sleep Center Routine One Time for 1 Occurrences starting 09/12/2019 until 09/12/2019 [email or web address] Phone: Comment on above: One Time for 1 Occurrences starting 06/2019 until 09/12/2019 End: 09-24-2019 Vitamin B6 Vitamin B6 Lab Routine Once for 1 Occurrences starting 09/24/2019 until 09/24/2019 [email or web address] Phone: Comment on above: Once for 1 Occurrences starting 09/24/20 until 09/24/2019 Vitamin B6 Vitamin B6 Lab R outine 09/24/2019 9:33 AM [email or web address] Phone: Immunizations Immunization Date Immunization Notes Care Provider Fa malaika 09-08-2014 tetanus toxoid, redu gaby diphtheria toxoid, and acellular pertussis vaccine, adsorbed Felipe Back [facility] [place] Payers Date Payer Category Payer Managed Care HMO (unspecified) [facility] HMO/CHOICE PLUS/DULCE/DULCE PLUS [id number] 2024 Private Health Insurance [id number] 2024 Private Health Insurance [id number]. [id number] 2024 Self-pay [id number] [phone] [id number] 2017 Blue Cross Blue Shie ld (Indemnity or Managed Care) - Out of State BCBS OUT OF STATE [facility] [place] [facility] [place] [id number] 2017 Unknown 2016 Unknown [id number] 2016 Unknown xxxxxxxxxxxxxxx [id number]. [id number] 2014 Medicaid [id number] 2.16.840.1.856582.3.249.13 2014 Medicaid [employer] MEDICAID [employer] MEDICAID xxxxxxxxxxx 2014-Present xxxxxxxxxxx [id number]. [id number] 1979 Unknown [id number] 2.16.840.1.197564.3.579.2.35 6 1979 Unknown [id number] 2.16.840.1.036610.3.579.2.35 6 1979 Unknown [id number] 2.16.840.1.277710.3.579.2.71 7 1979 Unknown [id number] 2.16.840.1.332486.3.579.2.71 7 1979 Unknown [id number] 2.16.840.1.382761.3.579.2.17 5 1979 Unknown [id number] 2.16.840.1.993657.3.579.2.90 3 1979 Unknown [id number] 2.16.840.1.742882.3.579.2.18 2 1979 Unknown [id number] 2.16.840.1.525918.3.579.2.18 5 1979 Unknown [id number] 2.16.840.1.886876.3.579.2.90 3 1979 Unknown [id number] 2.16.840.1.838723.3.579.2.59 3 1979 Unknown [id number] 2.16.840.1.103983.3.579.2.59 3 1979 Unknown [id number] 2.16.840.1.574861.3.579.2.59 3 1979 Unknown [id number] 2.16.840.1.789577.3.579.2.90 3 1979 Unknown [id number] 2.16.840.1.020255.3.579.2.90 3 1979 Unknown [id number] 2.16.840.1.435056.3.579.2.17 4 1979 Unknown [id number] 2.16.840.1.592916.3.579.2.17 4 1979 Unknown [id number] 2.16.840.1.278923.3.579.2.17 4 1979 Unknown [id number] 2.16.840.1.935431.3.579.2.17 4 1979 Unknown [id number] 2.16.840.1.074625.3.579.2.17 4 1979 Unknown [id number] 2.16.840.1.936424.3.579.2.17 4 1979 Unknown [id number] 2.16.840.1.125341.3.579.2.17 4 1979 Unknown [id number] 2.16.840.1.902220.3.579.2.17 4 1979 Unknown [id number] 2.16.840.1.518078.3.579.2.12 59 1979 Unknown [id number] 2.16.840.1.991898.3.579.2.12 59 1979 Unknown [id number] 2.16.840.1.119810.3.579.2.12 59 1979 Unknown [id number] 2.16.840.1.902625.3.579.2.12 59 1959 Unknown [id number] 1.2.840.519801.1.13.239.2.7. 3.256039.315 Unknown 114 Unknown [id number] 2.16.840.1.832545.3.579.2.53 1 Social History Date Type Detail Facility Start: 05-01-2015 End: 08-13-2023 Tobacco smoking status NHIS Never smoker [facility] Phone: Start: 1980 [facility] Start: 05-27-2019 End: 05-08-2024 Alcohol intake No [employer], [place] Start: 12-13-2019 End: 05-09-2024 Alcohol intake Current non-drinker of alcohol (finding) [employer], [place] Start: 12-09-2019 End: 05-13-2021 History SDOH Financial 4 [employer] [place], [place] Start: 12-09-2019 End: 05-20-2022 History SDOH Food Worry 1 [employer] [place] , [place] Start: 12-09-2019 History SD[facility] [place] [place] Start: 05-11-2020 End: 08-13-2023 Tobacco use and exposure [facility] used [facility] [place] [place] Start: 10-30-2021 End: 03-02-2023 Exposure to SARS-CoV-2 (event) Not sure [facility] [place] Start: 1980 Sex Assigned At Female F [facility] Start: 05-20-2022 History SDOH Financial 3 [employer] Work Phone: Start: 01-06-2023 End: 05-08-2024 History of Social function [facility] How hard is it for y ou to pay for the very basics like food, housing, medical care, and heating Not very hard [facility] Patient Health Questionnaire 9 item (PHQ-9) total score [Reported] 0 [facility] (I/We) worried wheth er (my/our) food would run out before (I/we) got money to buy more. Never true [facility] At any time in the p ast 12 months, were you homeless or living in fpc [including now]? No [facility] Start: 10-09-2020 Gender identity Identifies as female gender (finding) [facility] Start: 10-09-2020 Sexual orientation Heterosexual (brooklynn siddiqui) [facility] How hard is it for y ou to pay for the very basics like food, housing, medical care, and heating Somewhat hard [facility] Start: 05-10-2024 End: 06-10-2024 Alcoholic beverage intake Lifetime non-drinker (finding) [facility] Start: 08-19-2023 Alcohol Comment Caffeine Intak e: Yes, pop [facility] NEGATED: Highlighted rowStart: NINF History of tobacco use Passive smoker [facility] Clinical Notes 12-23-2021 to 11-02-2024 Telephone Encounter - Janel Allen NP - 11/02/2024 9:16 PM ESTTelephone Encounter - Janel Allen NP - 11/02/2024 9:16 PM Sherman Wing MD - 10/11/2024 10:05 AM EST Note Date & Type Note Facility 11-02-2024 Telephone encounter Note Pharmacy sends medication clarification for nortriptyline as there are two directions on one received. Per ONUR Gunderson plan increase nortriptyline 50 mg 2 daily/bedtime total of 100 mg. [facility] 11-02-2024 Miscellaneous Notes Pharmacy sends medication clarification for nortriptyline as there are two directions on one received. Per ONUR Gunderson plan increase nortriptyline 50 mg 2 daily/bedtime total of 100 mg. documented in this encounter [facility] 10-11-2024 Note [facility] [address] (11) [facility] [address] MEDICAL OFFICE BUILDING [facility] [address] Dept: [phone] Loc: [phone] MD Celina Browne 44 y.o. female Patient [...] Resource Strain: Medium Risk (05/08/2024) Received from [facility] Overall Financial Resource Strain (CARDIA) Difficulty of Paying Living Expenses: Somewhat hard Food Insecurity: No Food Insecurity (05/08/2024) Received from [facility] Hunger Vital Sign Worried About Running Out of Food in the Last Year: Never true Ran Out of Food in the Last Year: Never true Transportation Needs: Unknown (05/08/2024) Received from [facility] PRAPARE - Transportation Lack of Transportation (Non-Medical): No Housing Stability: Unknown (05/08/2024) Received from [facility] Housing Stability Vital Sign Unstable Housing [...] of submandibular glands, clear salivary flow from Pickett's ducts, no stones of Pickett's ducts Temporomandibular Joint: no crepitus with motion, no tenderness on palpation, no mayo (more content not included)... [facility] 10-11-2024 History of Present illness Narrative [facility] [address] (11) [facility] [address] MEDICAL OFFICE BUILDING [facility] [address] Dept: [phone] Loc: [phone] MD Celina Browne 44 y.o. female Patient [...] Resource Strain: Medium Risk (05/08/2024) Received from [facility] Overall Financial Resource Strain (CARDIA) Difficulty of Paying Living Expenses: Somewhat hard Food Insecurity: No Food Insecurity (05/08/2024) Received from [facility] Hunger Vital Sign Worried About Running Out of Food in the Last Year: Never true Ran Out of Food in the Last Year: Never true Transportation Needs: Unknown (05/08/2024) Received from [facility] PRAPARE - Transportation Lack of Transportation (Non-Medical): No Housing Stability: Unknown (05/08/2024) Received from [facility] Housing Stability Vital Sign Unstable Housing [...] of submandibular glands, clear salivary flow from Pickett's ducts, no stones of Pickett's ducts Temporomandibular Joint: no crepitus with motion, [...] Negative. Psychiatric/Behavioral: Negative. documented in this encounter [facility] 09-14-2024 Telephone encounter Note Voicemail Received: Our numbers [phone] actually have a question regarding a prescription that was prescribed today, If someone could please call me back. Thank you. Bye. [facility] 09-14-2024 Miscellaneous Notes Voicemail Received: Our numbers [phone] actually have a question regarding a prescription that was prescribed today, If someone could please call me back. Thank you. Rosa Isela. documented in this encounter [facility] 08-11-2024 Miscellaneous Notes Patient called and requested refill of Lyrica to be sent to [facility] in [place]. documented in this encounter [facility] 08-11-2024 Telephone encounter Note Patient called and requested refill of Lyrica to be sent to [facility] in [place]. [facility] 06-10-2024 History of Present illness Narrative [...] reflexes: Goyo's absent. Ankle clonus absent. Coordination Lycgdn-bo-ulxw, rapid alternating movements and dxks-xr-tifl normal bilaterally without dysmetria. Gait Normal casual, [...] up 3 months. documented in this encounter [facility] 05-10-2024 History of Present illness Narrative Images from the original note were not included. Chief Complaint Patient presents with Sleep Apnea Subjective Celina Sales Julisa, 44 y.o., female Sleep ND 43 year [...] was counseled on the risks of stroke, MS, and sudden with BUCK, along with the [...] clinic: 3-6 months documented in this encounter [facility] 03-03-2023 History of Present illness Narrative [...] She follows with an outside provider in [place] and was immobilized for an extended period [...] & Ankle Surgery documented in this encounter [facility] 01-29-2023 Note PROCEDURE: XR ANKLE LT [...] by: PIPER MERCEDES Date: 2023-01-29 07:05 [facility] 01-29-2023 Note PROCEDURE: XR ANKLE LT MIN [...] authenticated by: PIPER MERCEDES Date: 2023-01-29 07:05 [facility] 07-09-2022 History of Present illness Narrative MNT [...] BMR: 1573 calories Est. total calorie needs: ~2405-3879 Lab Results Component Value Date/Time TRIG 460 [...] bread Supper: pork chop or chicken, homemade czech fries, mashed, or baked potato with broccoli [...] minutes. documented in this encounter [facility] Phone: 02-05-2022 History of Present illness Narrative [facility] Date: 02/05/2022 Patient Name: Celina Gaspar : 1980 Pt No Showed Appt- Follow up call, left message on voicemail that patient discharged, but to call if has questions or concerns. Christel Donohue, PT Date: 02/05/2022 documented in this encounter [email or web address] Phone: 02-05-2022 Hospital course Narrative Images from the original note were not included. [facility] Discharge Summary Patient: Celina Gaspar : 1980 Referring Practitioner: Liliane Sawyer APRN, RETAIL PHARMACY MANAGER Referral Date : 12/19/21 Diagnosis: Lumbar radiculopathy [...] PT Date: 02/05/2022 documented in this encounter [email or web address] Phone: 02-03-2022 History of Present illness Narrative [facility] Date: 02/03/2022 Patient Name: Celina Gaspar : 1980 Pt Cancelled Appt due to no reason for cancel. Jerica Melgar Date: 02/03/2022 documented in this encounter [email or web address] Phone: 01-29-2022 History of Present illness Narrative Images from the original note were not included. 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 [facility] Daily Note Date: [...] 4: Increase trunk ROM B rotation WFL Chcf Goals - Time Frame for longterm goals : 10 Chcf Goals Time Frame for longterm goals : 10 vermin exterminator goal 1: Decrease pain low back 2/10 at worst x3 days for completing normal activities vermin exterminator goal 2: Patient to report 50% decrease in radicular symptoms L LE Post Treatment Pain: 5/10 Time In: 951 Time Out: 1030 Timed Code Treatment Minutes: 38 Minutes Total Treatment Time: 38 Minutes Vanessa Garcia, PT Date: 01/24/2022 documented in this encounter [employer] Phone: 01-22-2022 History of Present illness Narrative [facility] Date: 01/22/2022 Patient Name: Celina Gaspar : 1980 Patient did not show up for her appointment. Message left on answering machine with a reminder of her next appointment on Thursday. Beverly Rangel PTA Date: 01/22/2022 documented in this encounter [email or web address] Phone: 01-17-2022 History of Present illness Narrative Images from the original note were not included. [facility] Daily Note Date: [...] 4: Increase trunk ROM B rotation WFL Chcf Goals - Time Frame for vermin exterminator goals : 10 vermin exterminator goal 1: Decrease pain low back 2/10 at worst x3 days for completing normal activities longterm goal 2: Patient to report 50% decrease in radicular symptoms L LE Post Treatment Pain: 5/10 Time In: 1037 Time Out: 1107 Timed Code Treatment Minutes: 30 Minutes Total Treatment Time: 30 Minutes Beverly Rangel PTA Date: 01/17/2022 documented in this encounter [email or web address] Phone: 01-13-2022 History of Present illness Narrative [facility] Date: 01/13/2022 Patient Name: Celina Gaspar : 1980 Pt Cancelled Appt due to no reason given. NABILA Metzger Date: 01/13/2022 documented in this encounter [email or web address] Phone: 01-03-2022 History of Present illness Narrative Images from the original note were not included. 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 [facility] Out[facility] Occupational Therapy Daily Note Date: [...] Time Frame for Short term goals: STG=LTG [facility] Goals Time Frame for vermin exterminator goals : 12 visits (01/24/2022) longterm goal 1: pt to be indepenent in HEP-MET longterm goal 2: Pt to demonstrate R wrist flexion to 65 degrees or more in order to engage in daily tasks-MET vermin exterminator goal 3: Pt to demonstrate R wrist extension to 60 degrees or more in order to engage in daily tasks-MET longterm goal 4: Pt to be educated on carpal tunnel do's & dont's in order to prevent further repetitive injury to wrist-MET Timed Code Treatment Minutes: 30 Minutes Time In: 915 Time Out: 945 Timed Coded Minutes: 30 Total Treatment Time: 30 THERESA Houser, OTR/L Date: 12/31/2021 [facility]: 12-31-2021 Hospital course Narrative Images from the original note were not included. 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 Therapist provided pt with handout on Carpal Tunnel Dos & Dont's to avoid re-injury. 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 Goals Time Frame for longterm goals : 12 visits (01/24/2022) longterm goal 1: pt to be indepenent in HEP-MET vermin exterminator goal 2: Pt to demonstrate R wrist flexion to 65 degrees or more in order to engage in daily tasks-MET vermin exterminator goal 3: Pt to demonstrate R wrist extension to 60 degrees or more in order to engage in daily tasks-MET vermin exterminator goal 4: Pt to be educated on carpal tunnel do's & dont's in order to prevent further repetitive injury to wrist-MET Reason for Discharge [] Poor Follow Through [] Completion of Prescribed Sessions [x] Optimal Function Achieved [] Patient Discharged Self [x] Goals Achieved Comments: Thank you for this referral THERESA Houser, OTR/L Date: 12/31/2021 [facility] History of Present illness Narrative Images from the original note were not included. [facility] Outpatient Physical Therapy Evaluation Date: 12/31/2021 Patient: Celina Gaspar : 1980 Referring Practitioner: Liliane Sawyer APRN, RETAIL PHARMACY MANAGER Referral Date : 12/19/21 Diagnosis: Lumbar radiculopathy Treatment Diagnosis: Back Pain Onset Date: 12/19/21 (Referral) PT Insurance Information: [facility] Total # of Visits Approved: 10 Per [...] 4: Increase trunk ROM B rotation WFL longterm goals Time Frame for vermin exterminator goals : 10 vermin exterminator goal 1: Decrease pain low back 2/10 at worst x3 days for completing normal activities vermin exterminator goal 2: Patient to report 50% decrease in radicular symptoms L LE Patient's Goal: Decrease back pain to complete normal activities Timed Code Treatment Minutes: 15 Minutes Total Treatment Time: 45 Time In: 8:30 Time Out: 9:15 Christel Donohue PT Date: 12/31/2021 documented in this encounter [email or web address] Phone: 12-30-2021 History of Present illness Narrative Images from the original note were not included. [facility] Outpatient Occupational Therapy Daily Note Date: [...] Time Frame for Short term goals: STG=LTG [facility] Goals Time Frame for vermin exterminator goals : 12 visits (01/24/2022) vermin exterminator goal 1: pt to be indepenent in HEP-MET longterm goal 2: Pt to demonstrate R wrist flexion to 65 degrees or more in order to engage in daily tasks-MET vermin exterminator goal 3: Pt to demonstrate R wrist extension to 60 degrees or more in order to engage in daily tasks-MET vermin exterminator goal 4: Pt to be educated on carpal tunnel do's & dont's in order to prevent further repetitive injury to wrist-MET Time In: 835 Time Out: 915 Timed Coded Minutes: 40 Total Treatment Time: 40 THERESA Houser, OTR/L Date: 12/30/2021 documented in this encounter [email or web address] Phone: 12-23-2021 History of Present illness Narrative Images from the original note were not included. [facility] Outpatient Occupational Therapy Evaluation Date: 12/23/2021 [...] completing these mvmts Left Hand Strength - Research Intern (lbs) Handle Setting 2: 54#, 50#, 53# (52.3# ave) Left Hand Strength - Pinch (lbs) Lateral: 13.5# Tip: 8# Palmar 3 point: 11# Right Hand Strength - Research Intern (lbs) Handle Setting 2: 53#, 54#, 53# [...] Time Frame for Short term goals: STG=LTG longterm goals Time Frame for vermin exterminator goals : 12 visits (01/24/2022) vermin exterminator goal 1: pt to be indepenent in HEP longterm goal 2: Pt to demonstrate R wrist flexion to 65 degrees or more in order to engage in daily tasks vermin exterminator goal 3: Pt to demonstrate R wrist extension to 60 degrees or more in order to engage in daily tasks longterm goal 4: Pt to be educated on carpal tunnel do's & dont's in order to prevent further repetitive injury to wrist Patient's Goal: pt wishes to return to prior function Time In: 830 Time Out: 924 Timed Coded Minutes: 0 Total Treatment Time: 54 THERESA Houser, OTR/L 12/23/2021 documented in this encounter [email or web address] Phone: Evaluation note Diagnosis Viral illness Unspecified viral infection, in conditions classified elsewhere and of unspecified site documented in this encounter [email or web address] Phone: evaluation note* Diagnosis Suspected COVID-19 virus infection documented in this encounter [email or web address] Phone: evaluation note* Diagnosis Acute cystitis with hematuria Acute cystitis documented in this encounter [email or web address] Phone: evaluation note* Diagnosis Difficult or painful urination Dysuria documented in this encounter [email or web address] Phone: evaluation note* Diagnosis Acute cystitis with hematuria Acute cystitis Recurrent UTI Urinary tract infection, site not specified documented in this encounter [email or web address] Phone: evaluation note* Diagnosis Frequent UTI Urinary tract infection, site not specified Urinary urgency Urgency of urination Urinary frequency documented in this encounter [email or web address] Phone: evaluation note* Diagnosis Frequent UTI Urinary tract infection, site not specified Urinary urgency Urgency of urination Urinary frequency documented in this encounter [email or web address] Phone: evaluation note* Diagnosis MRSA (methicillin resistant Staphylococcus aureus) septicemia (HCC) Methicillin resistant staphylococcus aureus septicemia [facility] noteNo assessment information availableWilson Memorial Hospital Work Phone: Evaluation note* Diagnosis Fatigue, unspecified type Encounter for screening for HIV Mixed hyperlipidemia Hyperglycemia Other abnormal glucose Chronic renal impairment, stage 3b (HCC) documented in this encounter [facility] [employer] Phone: [email or web address] note* Diagnosis Acute cystitis with hematuria Acute cystitis documented in this encounter [facility] [employer] Phone: [email or web address] note* Diagnosis Neck mass Swelling, mass, or lump in head and neck documented in this encounter [facility] [employer] Phone: evaluation note* Diagnosis Pain of foot, unspecified laterality Closed nondisplaced fracture of second metatarsal bone of left foot, initial encounter Closed nondisplaced fracture of lateral cuneiform of left foot, initial encounter documented in this encounter [facility] [employer] Phone: [email or web address] note* Diagnosis Foreign body (FB) in soft tissue Residual foreign body in soft tissue documented in this encounter [facility] [employer] Phone: evaluation note* Diagnosis Pelvic pressure in female Other specified symptom associated with female genital organs documented in this encounter [facility] [employer] Phone: evaluation note* Diagnosis Charcot arthropathy of midfoot- Primary Gastrocnemius equinus, unspecified laterality Foot pain, left Pain in soft tissues of limb [facility] Diagnosis Mixed hyperlipidemia documented in this encounter [facility] Play[facility]arttidal[facility] note* Diagnosis Idiopathic progressive polyneuropathy Non-seasonal allergic rhinitis due to pollen [facility] Diagnosis Thyroid nodule Nontoxic uninodular goiter documented in this encounter [facility] note* Diagnosis Thyroid nodule- Primary Nontoxic uninodular goiter [facility] Diagnosis BUCK on CPAP- Primary 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 (CMS/HCC) Restless legs Restless legs syndrome (RLS) Bilateral carpal tunnel syndrome Carpal tunnel syndrome [facility]* Diagnosis Idiopathic progressive polyneuropathy- Primary Bilateral carpal tunnel syndrome Carpal tunnel syndrome Restless legs Restless legs syndrome (RLS) Intractable 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 (CMS/HCC) documented in this encounter [facility]* Diagnosis BUCK (obstructive sleep apnea) Obstructive sleep apnea (adult) (pediatric) Hypersomnia Hypersomnia, unspecified Snoring Other dyspnea and respiratory abnormality Class 2 obesity due to excess calories with body mass index (BMI) of 38.0 to 38.9 in adult, unspecified whether serious comorbidity present documented in this encounter [facility]* Diagnosis Idiopathic progressive polyneuropathy Non-seasonal allergic rhinitis due to pollen documented in this encounter [facility]* Diagnosis Thyroid nodule- Primary Nontoxic uninodular goiter Lipoma of neck [facility] Diagnosis 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 (CMS/HCC) documented in this encounter [facility]* Diagnosis BUCK on CPAP- Primary Idiopathic progressive polyneuropathy Restless legs Restless legs syndrome (RLS) Intractable 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 (CMS/HCC) documented in this encounter [facility]* Diagnosis Pre-diabetes Other abnormal glucose Mixed hyperlipidemia documented in this encounter [facility] Summary Purpose Family History No Family History [...] FoundDocuments on File Type Date Recorded 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 Advance Directives and Living Will Power of Cafe Associate Latest Code Status on File Code Status Date Activated Date Inactivated Comments Full Code 08/15/2018 4:17 PM 08/25/2018 8:55 PM Full Code 03/19/2017 1:37 PM 03/19/2017 4:32 PM Full Code 03/19/2017 10:57 AM 03/19/2017 1:37 PM Full Code 03/05/2017 12:56 PM 03/05/2017 3:55 PM Full Code 03/05/2017 10:05 AM 03/05/2017 12:56 PM Documents on File Type Date Recorded 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 * Back Care Basics: General Info (Greek) * Back: Preventing Injuries (Greek) documented in this encounter Reason for Referral Status Reason Specialty Diagnoses / Procedures Referre d By Contact Referred To Contact Closed Radiology Diagnoses Brachial neuritis Peripheral nerve disorder Spasm of muscle Procedures MR Cervical Spine Without Contrast Tiffanie Casas MD [facility] [place] [address] Specialty Diagnoses / Procedures Referred By Contac t Referred To Contact Radiology Diagnoses Neck mass Procedures US HEAD NECK SOFT TISSUE THYROID Felipe Adam MD [address] [place] [address] Referral ID Status Reason Start Date Expiration Date Visits Re quested Visits Authorized [id number] Closed 05/27/2022 05/27/2023 1 1 Specialty Diagnoses / Procedures Referred By Thor t Referred To Contact Radiology Diagnoses Thyroid nodule Procedures US THYROID Felipe Adam MD [address] [place] [address] Referral ID Status Reason Start Date Expiration Date V isits Requested Visits Authorized [id number] Pending Review 09/06/2024 08/26/2025 1 1 Chief Complaint and Reason for Visit Chief Complaint M54.16 M79.10 M79.60 9 R20.9 Chief Complaint Unknown Additional Source Comments INFORMATION SOURCE (unrecogn ized section and content) DATE CREATED AUTHOR 03/30/2018 [facility] DATE CREATED AUTHOR AUTHOR'S ORGANIZ ATION 03/30/2018 [facility] DATE CREATED AUTHOR AUTHOR'S ORGANIZ ATION 09/15/2018 [facility] DATE CREATED AUTHOR AUTHOR'S ORGANIZ ATION 09/23/2018 [facility] DATE CREATED AUTHOR AUTHOR'S ORGANIZ ATION 09/26/2018 [facility] DATE CREATED AUTHOR AUTHOR'S ORGANIZ ATION 12/10/2018 [facility] DATE CREATED AUTHOR AUTHOR'S ORGANIZ ATION 12/18/2018 [facility] DATE CREATED AUTHOR AUTHOR'S ORGANIZ ATION 02/11/2019 [facility] DATE CREATED AUTHOR AUTHOR'S ORGANIZ ATION 11/30/2021 [facility] DATE CREATED AUTHOR AUTHOR'S ORGANIZ ATION 05/01/2022 [facility] DATE CREATED AUTHOR AUTHOR'S ORGANIZ ATION 08/22/2022 [facility] DATE CREATED AUTHOR AUTHOR'S ORGANIZ ATION 01/12/2023 [facility] DATE CREATED AUTHOR AUTHOR'S ORGANIZ ATION 02/15/2023 [facility] DATE CREATED AUTHOR AUTHOR'S ORGANIZ ATION 04/04/2023 [facility] DATE CREATED AUTHOR AUTHOR'S ORGANIZ ATION 02/20/2024 [facility] DATE CREATED AUTHOR AUTHOR'S ORGANIZ ATION 10/17/20[facility] DATE CREATED AUTHOR AUTHOR'S ORGANIZ ATION 11/15/2024 [facility] DATE CREATED AUTHOR AUTHOR'S ORGANIZ ATION 11/15/2024 [facility] EPIC Reason for Visit (unrecogniz ed section and content) Status Reason Specialty Diagnoses / Procedures Referre d By Contact Referred To Contact Closed Radiology Diagnoses Brachial neuritis Peripheral nerve disorder Spasm of muscle Procedures MR Cervical Spine Without Contrast Tiffanie Casas MD [address] [facility] [address] [place] [address] Specialty Diagnoses / Procedures Referred By Contac t Referred To Contact Occupational Therapy Diagnoses Carpal tunnel syndrome Carpal Tunnel Syndrome Procedures Eval and treat Keenan Lozano MD [address] [place] [address] [facility] [address] [place] [address] Referral ID Status Reason Start Date Expiration Date Visits Re quested Visits Authorized [id number] Open 12/19/2021 12/19/2022 1 1 Specialty Diagnoses / Procedures Referred By Contac t Referred To Contact Physical Therapy Diagnoses Radiculopathy, lumbar region Lumbar Radiculopathy Procedures Eval and treat Janel Allen, SUPERVISOR BUFFING AND PASTING - RETAIL PHARMACY MANAGER [address] [facility] [address] [place] [address] [facility] [address] [place] [address] Referral ID Status Reason Start Date Expiration Date Visits Re quested Visits Authorized [id number] Open 12/19/2021 12/19/2022 1 1 Specialty Diagnoses / Procedures Referred By Contac t Referred To Contact Radiology Diagnoses Neck mass Procedures US HEAD NECK SOFT TISSUE THYROID Back, MD Felipe [address] [place] [address] Referral ID Status Reason Start Date Expiration Date Visits Re quested Visits Authorized [id number] Closed 05/27/2022 05/27/2023 1 1 Specialty Diagnoses / Procedures Referred By Contac t Referred To Contact Radiology Diagnoses Pain of foot, unspecified laterality Closed nondisplaced fracture of lateral cuneiform of left foot, initial encounter Procedures MRI FOOT LEFT W WO CONTRAST MRI FOOT LEFT W WO CONTRAST Robbin Sánchez, DPDieudonne [address] [facility], [place] [address] Referral ID Status Reason Start Date Expiration Date Visits Re quested Visits Authorized [id number] Closed 06/20/2022 06/20/2023 1 1 Reason Comments Education Class Specialty Diagnoses / Procedures Referred By Thor bernal Referred To Contact Diabetes Services Diagnoses Pre-diabetes Felipe Adam MD [id number] [facility] Diabetic Education [address] [place] [address] Referral ID Status Reason Start Date Expiration Date V isits Requested Visits Authorized [id number] Open Specialty Services Required 06/30/2022 06/30/2023 2 2 Specialty Diagnoses / Procedures Referred By Thor bernal Referred To Contact Diabetes Services Diagnoses Pre-diabetes Felipe Adam MD [phone] [facility] Diabetic Education [address] [place] [address] Reason Comments Other Left foot charcot on -going since 06/2022. New x-rays today. 2nd of opinion. Specialty Diagnoses / Procedures Referred By Thor bernal Referred To Contact Radiology Diagnoses Thyroid nodule Procedures US THYROID Felipe Adam MD [address] [phone] Referral ID Status Reason Start Date Expiration Date V isits Requested Visits Authorized [id number] Pending Review 09/06/2024 08/26/2025 1 1 Reason Comments Sleep Apnea Reason Onset Date Comments Med Refill 10/05/2024 Reason Comments New Patient FNA - THYROID NODULE Specialty Diagnoses / Procedures Referred By Thor bernal Referred To Contact Otolaryngology Diagnoses Thyroid nodule Felipe Adam MD [address] [place] [address] Phone: tel: fax: Sherman Adair MD [address] [place] [address] Phone: tel: fax: Referral ID Status Reason Start Date Expiration Date V isits Requested Visits Authorized [id number] Pending Review 09/09/2024 09/09/2025 1 1 Care Teams (unrecognized sec tion and content) Shore Working Supervisor Relationship Specialty Start Date End Date Back, MD Felipe [address] [place] [address] PCP - General Internal Medicine 11/14/11 Shore Working Supervisor Relationship Specialty Start Date End Date Back, MD Felipe [address] [place] [address] PCP - General Internal Medicine 11/14/11 Shore Working Supervisor Relationship Specialty Start Date End Date Back, MD Felipe [address] [place] [address] PCP - General Internal Medicine 11/14/11 Shore Working Supervisor Relationship Specialty Start Date End Date Back, MD Felipe [address] [place] [address] PCP - General Internal Medicine 11/14/11 Shore Working Supervisor Relationship Specialty Start Date End Date Back, MD Felipe [address] [place] [address] PCP - General Internal Medicine 11/14/11 Shore Working Supervisor Relationship Specialty Start Date End Date Back, MD Felipe [address] [place] [address] PCP - General Internal Medicine 11/14/11 Shore Working Supervisor Relationship Specialty Start Date End Date Back, MD Felipe [address] [place] [address] PCP - General Internal Medicine 11/14/11 Team Status: Inactive Member Role Status Dates NON STAFF Primary Care Provider Active Tiffanie Casas MD Attending Provider Active Team Status: Active Member Role Status Dates NON STAFF Primary Care Provider Active Shore Working Supervisor Relationship Specialty Start Date End Date Back, MD Felipe [address] [place] [address] PCP - General Internal Medicine 11/14/11 Shore Working Supervisor Relationship Specialty Start Date End Date Back, MD Felipe [address] [place] [address] PCP - General Internal Medicine 11/14/11 Shore Working Supervisor Relationship Specialty Start Date End Date Back, MD Felipe [address] [place] [address] PCP - General Internal Medicine 11/14/11 Shore Working Supervisor Relationship Specialty Start Date End Date Back, MD Felipe [address] [place] [address] PCP - General Internal Medicine 11/14/11 Shore Working Supervisor Relationship Specialty Start Date End Date Back, MD Felipe [address] [place] [address] PCP - General Internal Medicine 11/14/11 Shore Working Supervisor Relationship Specialty Start Date End Date Back, MD Felipe [address] [place] [address] PCP - General Internal Medicine 11/14/11 Shore Working Supervisor Relationship Specialty Start Date End Date Back, MD Felipe [address] [place] [address] PCP - General Internal Medicine 11/14/11 Shore Working Supervisor Relationship Specialty Start Date End Date Back, MD Felipe [address] [place] [address] PCP - General Internal Medicine 11/14/11 Shore Working Supervisor Relationship Specialty Start Date End Date Back, MD Felipe [address] [place] [address] PCP - General Internal Medicine 03/26/15 Shore Working Supervisor Relationship Specialty Start Date End Date Back, MD Felipe [address] [place] [address] PCP - General Internal Medicine 11/14/11 Team Status: Inactive Member Role Status Dates Frances Harris DPM MS Attending Provider Active Start: February 15, 2024 End: February 15, 2024 Shore Working Supervisor Relationship Specialty Start Date End Date Back, MD Felipe [address] [place] [address] PCP - General Internal Medicine 11/14/11 Shore Working Supervisor Relationship Specialty Start Date End Date Back, MD Felipe [address] [place] [address] PCP - General Internal Medicine 11/14/11 Shore Working Supervisor Relationship Specialty Start Date End Date Back, MD Felipe [address] [place] [address] PCP - General Internal Medicine 03/26/15 Shore Working Supervisor Relationship Specialty Start Date End Date Back, MD Felipe [address] [place] [address] PCP - General Internal Medicine 03/26/15 Shore Working Supervisor Relationship Specialty Start Date End Date Back, MD Felipe [address] [place] [address] PCP - General Internal Medicine 11/14/11 Goals [...] BE BASED ON THE PRIMARY CLINICAL RECORDS. [employer] [facility]. provides no warranty or guarantee of the accuracy or completeness of information in this document.
== END 2024-11-18 11:07 | disposition home or self-care (01) ==
LOC: EC 11:06
PROVIDERS: Visit Provider Podiatrist Foot & Ankle Surgery
DX: M79.672 Pain in left foot (principal); M24.675 Ankylosis, left foot
CPT/HCPCS: 73630

== ENCOUNTER 2025-04-25 09:49 | Outpatient (OUT) | payer OTHER, SELFPAY ==
--- OUTSIDE RECORDS SUMMARY | 2025-04-20 12:45 | XMS_ITS | Encounter Summary ---
Author Organization [facility] Address [address] [place] [address] Care Team Providers Care Tractor Technician Name Role Phone Alcides Adam MD Primary Care Provider [phone] Reason for Visit * Reason Comments Follow-up RT foot pain/Review MRI results Encounter Details Date Type Department Care Team (Late st Contact Info) Description 04/20/2025 12:45 PM EDT Office Visit [facility] [address] [place] [phone] Dandy Sánchez, DPMónica [address] [place] [address] MRSA (methicillin resistant staph aureus) culture positive (Primary Dx); Right foot pain; Skin ulcer of toe of right foot with fat layer exposed (HCC); Idiopathic progressive polyneuropathy; Infection of toe; Charcot arthropathy of midfoot; Ulcer of left foot, limited to breakdown of skin (HCC); Closed nondisplaced fracture of second metatarsal bone of right foot, initial encounter Social History Tobacco Use Types Packs/Day Years Used Date Smoking Tobacco: Never Smokeless Tobacco: Never Tobacco Cessation:Counseling Given: Not Answered Alcohol Use Standard Drinks/Week Comments Not Currently 0 (1 standard drink = 0.6 oz pur e alcohol) 1-2 times a year Comments Unknown Sex and Gender Information Value Date Recorded Sex Assigned at Not on file Legal Sex Female 7:36 PM EDT Gender Identity Not on file Sexual Orientation Not on file documented as of this encounter Last Filed Vital Signs Vital Sign Reading Time Taken Comments Blood Pressure 128/89 04/20/2025 12:32 PM EDT Pulse 101 04/20/2025 12:32 PM EDT Temperature - - Respiratory Rate - - Oxygen Saturation - - Inhaled Oxygen Concentration - - Weight 95.3 kg (210 lb) 04/20/2025 12:32 PM EDT Height 157.5 cm (5' 2 ) 04/20/2025 12:32 PM EDT Body Mass Index 38.41 04/20/2025 12:32 PM EDT documented in this encounter Progress Notes * Dandy Sánchez DPM - 04/20/2025 12:45 PM EDT Celina Egan is a 44 y.o. female presents with chief complaint of Follow-up (RT foot pain/Review MRI results) HPI: HPI Review MRI results. Recheck RT toe 2 ulcer. She thinks it is improving and applies peroxide, neosporin and bandaid BID.She fell off knee scooter x 4 times without boot on and sees a cut on RT toe 5. She also noticed a callus on LT plantar midfoot today. States its blistered and draining. Admits not always wearing shoes on left foot. Meds tolerated well SUBJECTIVE: Review of Systems General: Chillsdenies. Feverdenies. Musculoskeletal: muscle weaknessdenies. Bone/joint symptomsdenies. Peripheral Vascular: Edemadenies. Hx of blood clots in legsdenies. Raynaud'sdenies. Rest pain denies. Ulceration of feetdenies. Varicose veinsdenies. Skin: Hyperpigmentationdenies. Nail changesdenies. Rashdenies. Skin lesion(s)denies. Neurologic: Gait abnormalitydenies. Tingling/Numbnessdenies. MEDICATIONS: Current Outpatient Medications Medication Instructions ALPRAZolam (Xanax) 0.25 MG tablet Take 1 tab 30-45 min before PAP therapy nightly b complex vitamins capsule 1 capsule, Daily RT baclofen (Lioresal) 10 MG tablet TAKE 2 TABLETS BY MOUTH AT BEDTIME FOR 30 DAYS biotin 10 MG tablet Every 24 hours calcium 500 MG tablet 1 tablet, 2 times daily cetirizine (ZYRTEC) 10 mg, Daily RT cholecalciferol (Vitamin D-3) 50 MCG (1999) tablet Take by mouth diclofenac sodium 1 % gel famotidine (PEPCID) 20 mg, 2 times daily fluticasone (Flonase) 50 MCG/ACT nasal spray 2 sprays, Daily gemfibrozil (Lopid) 600 MG tablet montelukast (SINGULAIR) 10 mg, Oral, Nightly nortriptyline (PAMELOR) 150 mg, Oral, Nightly Nurtec 75 mg, Oral, See admin instructions, Take 1- 75mg tablet by mouth as needed at the onset of migraine. pregabalin (LYRICA) 300 mg, Oral, 2 times daily rOPINIRole (REQUIP) 1 mg, Oral, 3 times daily sertraline (Zoloft) 100 MG tablet ALLERGIES: Allergies Allergen Reactions Topamax [Topiramate] Made her feel overly thirsty and caused bad smell and taste. Chlorhexidine Rash REVIEW OF SYMPTOMS: Review of Systems OBJECTIVE: Visit Vitals Smoking Status Never Physical Exam General General Appearance: appears stated age and healthy Orientation: alert and oriented to person, place, and time Right Foot/Ankle Inspection and Palpation Ecchymosis: none Tenderness: none Swelling: none Arch: normal Hammertoes: second toe, third toe, fourth toe and fifth toe Hallux valgus: no Hallux limitus: no Skin Exam: skin intact; 1cm full thickness wound 2nd toe, red and swelling reduced. Central sub q base, serous fluid reducing. Atrophic skin and neg digital hair Neurovascular Dorsalis pedis: 3+ Posterior tibial: 3+ absent sharp sensation all toes and 3 areas 5.07 monofilament Achilles reflex: 2+ Babinski reflex: 2+ Muscle Strength Ankle dorsiflexion: 5 Ankle plantar flexion: 5 Ankle inversion: 5 Ankle eversion: 5 Great toe extension: 5 Great toe flexion: 5 Range of Motion Normal right ankle ROM- midfoot reduced warm with reduced edema foot . ROM without crepitus. No newdeformity Left Foot/Ankle Inspection and Palpation Ecchymosis: none Tenderness: none Swelling: none Arch: rockerbottom,cuboid prominence Hammertoes: second toe, third toe, fourth toe and fifth toe Claw toes: absent Hallux valgus: no Hallux limitus: no Skin Exam: skin intact; plantar 2cm intact blister communicating with 1.5cm blister, open with minimal serous fluid and superficial depth. No redness/swelling,odor Atrophic skin and neg digital hair Neurovascular Dorsalis pedis: 3+ Posterior tibial: 3+ absent sharp sensation all toes and 3 areas 5.07 monofilament Achilles reflex: 2+ Babinski reflex: 2+ Muscle Strength Ankle dorsiflexion: 5 Ankle plantar flexion: 5 Ankle inversion: 5 Ankle eversion: 5 Great toe extension: 5 Great toe flexion: 5 Range of Motion Normal left ankle ROM ASSESSMENT AND PLAN: Assessment/Plan - infection improving 2nd toe with distal ulcer. Severe neuropathy bilat. MRI pos for osteo DP 3rd toe. And pos for midfoot Acute Neuropathic Joint changes multiple joints Left foot new blister plantar cuboid, superficial Diagnoses and all orders for this visit: Right foot pain Skin ulcer of toe of right foot with fat layer exposed (HCC) Infection of toe Idiopathic progressive polyneuropathy Generalized edema Charcot Rt Ulcer left PWB planned with immobilization until inflammation resolved. Sugar control and calcium intake reviewed for improvement. Healing risks reviwed with poss toe or foot deformity and future wound difficulty and amputation mentioned in detail. 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 Call if any incr redness, swelling, pain or drainage. Risk of infection entering deep tissues or bone leading to amputation reviewed Rest needed and every day drsg with wound care reviewed. Caution with wound irritation reviewed Risks of infection and amputation discussed. Spreading infection possible to cause bone infection and vascular compromise Cultures reviewed- 1wk of clinda remaining New left foot wound needing rest/protection more and must stop NWB rt Daily cleanse and AB drsg planned. Call if any incr redness, swelling, pain or drainage. Risk of infection entering deep tissues or bone leading to amputation reviewed Wound debrided left Distal amp 2 rt sugg but will decide on next visit with xra documented in this encounter Plan of Treatment Upcoming Encounters Date Type Department Care Team (Late st Contact Info) Description 05/01/2025 4:00 PM EDT Office Visit [facility] [address] [place] [phone] Dandy Sánchez DPM [address] [place] [address] 05/02/2025 2:00 PM EDT Office Visit [facility] [address] [facility] [address] [place] [address] Jalyn Meng, TIRE CURER [address] [address] 05/17/2025 1:20 PM EDT Office Visit [facility] [address] [facility] [address] [place] [address] Trace Casas MD [address] [facility] [address], [place] [phone] documented as of this encounter Visit Diagnoses Diagnosis MRSA (methicillin resistant staph aureus) culture positive- Primary Carrier or suspected carrier of Methicillin resistant Staphylococcus aureus Right foot pain Pain in soft tissues of limb Skin ulcer of toe of right foot with fat layer exposed (HCC) Idiopathic progressive polyneuropathy Infection of toe Unspecified local infection of skin and subcutaneous tissue Charcot arthropathy of midfoot Ulcer of left foot, limited to breakdown of skin (HCC) Closed nondisplaced fracture of second metatarsal bone of right foot, initial encounter documented in this encounter Care Teams Tractor Technician Relationship Specialty Start Date End Date Back, MD Alcides [address] [place] [address] PCP - General Family Medicine 12/08/24 documented as of this encounter
--- OUTSIDE RECORDS SUMMARY | 2025-04-25 09:52 | XMS_ITS | Encounter Summary ---
Author Organization [facility] Address [address] [place] [address] Care Team Providers Care Education Instructor Name Role Phone Alcides Adam MD Primary Care Provider [phone] Encounter Details Date Type Department Care Team (Late Contact Info) Description 04/11/2025 Clinisync Result Encounter [facility] External Department Unsolicited Dandy Wasserman DPM [address] [place] [address] Social History Tobacco Use Types Packs/Day Years Used Date Smoking Tobacco: Never Smokeless Tobacco: Never Alcohol Use Standard Drinks/Week Comments Never 0 (1 standard drink = 0.6 oz pur e alcohol) Caffeine Intake: Yes, pop Comments Unknown Sex and Gender Information Value Date Recorded Sex Assigned at Not on file Legal Sex Female 7:36 PM EDT Gender Identity Not on file Sexual Orientation Not on file documented as of this encounter Plan of Treatment Upcoming Encounters Date Type Department Care Team (Late st Contact Info) Description 05/01/2025 4:00 PM EDT Office Visit [facility] [address] [place] [phone] Dandy Wasserman DPM [address] [place] [address] 05/02/2025 2:00 PM EDT Office Visit [facility] [address] [phone] Jalyn Meng NP [address], [address] [place] [address] 05/17/2025 1:20 PM EDT Office Visit [facility] [address] [facility] [address] [place] [address] Trace Casas MD [address] [facility] [address] [place], [place] [phone] documented as of this encounter Procedures Procedure Name Priority Date/Time Associated Diagnosis Comments MHPT BUN + CREATININE Routine 04/11/2025 11:16 AM EDT documented in this encounter Results * (ABNORMAL) MHPT BUN + CREATININE (04/11/2025 11:16 AM EDT) MHPT BUN (UREA N) 15 6 - 20 mg/dL MHPT MHPT CREATININE 1.3(H) 0.5 - 0.9 mg/dL MHPT MHPT EGFR 52(L) >60 mL/min/1.7 3m2 MHPT Comment: These results are not intended for [...] following therapy that affects renal tubular secretion. 04/11/2025 11:1 6 AM EDT 04/11/2025 11:17 AM EDT Narrative [facility] - 04/11/2025 11:39 AM EDT Original Ordering Provider: DANDY WASSERMAN us Dandy Wasserman DPM [facility] Final R esult [facility] MHPT documented in this encounter Visit Diagnoses Not on filedocumented in this encounter Care Teams Education Instructor Relationship Specialty Start Date End Date Back, MD ONUR McgrathI: [id number] [address] [place] [address] PCP - General Family Medicine 12/08/24 documented as of this encounter
--- OUTSIDE RECORDS SUMMARY | 2025-04-25 09:52 | XMS_ITS | Encounter Summary ---
Author Organization [facility] Address [address] [place] [address] Care Team Providers Care Inside Sales Coordinator Name Role Phone Alcides Adam MD Primary Care Provider [phone] Encounter Details Date Type Department Care Team (Latest Contact Info) Description 04/19/2025 Travel Social History Tobacco Use Types Packs/Day Years [...] Office Visit [facility] [address] [place] [address] Dandy Sánchez, DPMónica [address] [place] [address] 05/02/2025 2:00 PM EDT Office Visit [facility] [address] [address] Jalyn Meng, GOODYEAR WELTER [address], [address] [phone] 05/17/2025 1:20 PM EDT Office Visit [facility] [address] [facility] [address] [place] [address] Trace Casas MD [address] [facility] [address] [phone] documented as of this encounter Visit Diagnoses Not on filedocumented in this encounter Care Teams Inside Sales Coordinator Relationship Specialty Start Date End Date Back[place] [address] PCP - General Family Medicine 12/08/24 documented as of this encounter
--- OUTSIDE RECORDS SUMMARY | 2025-04-25 09:52 | XMS_ITS | Encounter Summary ---
Author Organization [facility] Address [address] [facility] [place] [address] Care Team Providers Care Rehabilitation Construction Specialist Name Role Phone Alcides Adam MD Primary Care Provider [phone] Encounter Details Date Type Department Care Team (Late Contact Info) Description 04/20/2025 Bamboo flowsheet [facility] [address] [place] [address] Dandy Sánchez DPM [address] [place] [address] Social History Tobacco Use Types Packs/Day Years Used Date Smoking Tobacco: Never Smokeless Tobacco: Never Alcohol Use Standard Drinks/Week Comments Not Currently [...] Encounters Date Type Department Care Team (Late Contact Info) Description 05/01/2025 4:00 PM EDT Office Visit [facility] [address] [place] [address] Dandy Sánchez DPM [address] [place] [address] 05/02/2025 2:00 PM EDT Office Visit [facility] [address] [facility] [address] [place] [address] Jalyn Meng, UC ARCHITECT [address] [facility] [address] [place] [phone] 05/17/2025 1:20 PM EDT Office Visit [facility] [address] [facility] [address] [place] [address] Trace Casas MD [address] [facility] 210[facility], [place] [phone] documented as of this encounter Visit Diagnoses Not on filedocumented in this encounter Care Teams Rehabilitation Construction Specialist Relationship Specialty Start Date End Date Back, MD Alcides [address] [place] [address] PCP - General Family Medicine 12/08/24 documented as of this encounter
--- OUTSIDE RECORDS SUMMARY | 2025-04-25 09:52 | XMS_ITS | Encounter Summary ---
Author Organization [facility] Address [address] [place] [address] Care Team Providers Care Knotting Machine Operator Name Role Phone Alcides Adam MD Primary Care Provider [phone] Encounter Details Date Type Department Care Team (Late st Contact Info) Description 04/11/2025 Telephone [facility] [address] [place] [phone] Dandy Sánchez, DPMónica [address] [place] [address] Social History Tobacco Use Types Packs/Day Years [...] on file documented as of this encounter Miscellaneous Notes * Telephone Encounter - Sherie Bui LPN - 04/11/2025 2:35 PM EDT Pt notified and is improving, not as red or swollen. She had already started probiotic without any issues. Rx sent in. * Telephone Encounter - Sherie Bui LPN - 04/11/2025 2:20 PM EDT LM to call office for results. * Telephone Encounter - Anisa Broussardbobby - 04/11/2025 11:57 AM EDT MRSA with clinda sensitivity - no other organisms. If improving, may just need clinda 1wk extra. Probiotic if any GI complaints. If this conflicts with any other medical advice(Dr Adam or XOCHILT Sullivan) then we'd like to know their recommendations. documented in this encounter Plan of Treatment Upcoming Encounters Date Type Department Care Team (Late st Contact Info) Description 05/01/2025 4:00 PM EDT Office Visit [facility] [address] [place] [address] Dandy Sánchez DPM [address] [place] [address] 05/02/2025 2:00 PM EDT Office Visit [facility] [address] [address] Jalyn Meng, QUALITY COMPLIANCE CONSULTANT [address] [phone] 05/17/2025 1:20 PM EDT Office Visit [facility] [address] [facility] [address] [place] [address] Trace Casas MD [address] [facility] [address], [place] [address] documented as of this encounter Visit Diagnoses Diagnosis MRSA (methicillin resistant staph aureus) culture positive Carrier or suspected carrier of Methicillin resistant Staphylococcus aureus documented in this encounter Care Teams Knotting Machine Operator Relationship Specialty Start Date End Date Alcides Adam MD [address] [place] [id number] PCP - General Family Medicine 12/08/24 documented as of this encounter
--- OUTSIDE RECORDS SUMMARY | 2025-04-25 09:52 | XMS_ITS | Encounter Summary ---
Author Organization [facility] Address [address] [place] [address] Care Team Providers Care Solids Control Technician Name Role Phone Alcides Adam MD Primary Care Provider [phone] Reason for Visit * Reason Comments Med Refill Encounter Details Date Type Department Care Team (Late st Contact Info) Description 07/20/2023 Refill [facility] [address] [facility] [address] [place] [address] Trace Casas MD [address] [facility] [address] [address] Idiopathic progressive polyneuropathy Social History Tobacco Use Types Packs/Day Years Used Date Smoking Tobacco: Never Smokeless Tobacco: Never Alcohol Use Standard Drinks/Week Comments Never 0 (1 standard drink = 0.6 oz pur e alcohol) Comments Unknown Sex and Gender Information Value Date Recorded Sex Assigned at Not on file Legal Sex Female 7:36 PM EDT Gender Identity Not on file Sexual Orientation Not on file documented as of this encounter Miscellaneous Notes * Telephone Encounter - Janel Allen NP - 07/20/2023 1:07 PM EDT Already was sent when patient called today for refill. documented in this encounter Plan of Treatment Upcoming Encounters Date Type Department Care Team (Late Contact Info) Description 05/01/2025 4:00 PM EDT Office Visit [facility] [address] [place] [address] Dandy Sánchez, DPM [address] [place] [address] 05/02/2025 2:00 PM EDT Office Visit [facility] [address] [facility] [address] [place] [address] Jalyn Meng, FANCY NEEDLEWORKER [address] [facility] [address] [place] [phone] 05/17/2025 1:20 PM EDT Office Visit [facility] [address] [facility] [address] [place] [address] Trace Casas MD [address] [facility] [address], [place] [phone] documented as of this encounter Visit Diagnoses Diagnosis Idiopathic progressive polyneuropathy documented in this encounter Care Teams Solids Control Technician Relationship Specialty Start Date End Date Back, MD Alcides [address] [place] [address] PCP - General Family Medicine 12/08/24 documented as of this encounter
--- OUTSIDE RECORDS SUMMARY | 2025-04-25 09:52 | XMS_ITS | Clinical Summary ---
Author Organization [facility] Address [address] [place] [id number] Care Team Providers Care High Risk Case Manager Name Role Phone Felipe Adam MD Primary Care Provider [phone] Allergies Active Allergy Reactions Criticality Noted Date Comments Chlorhexidine Rash Low 03/03/2023 Topiramate Other (See Comments) 10/29/2023 Made her feel overly thirsty and caused bad smell and taste. Medications gemfibrozil (LOPID) 600 MG tablet Take 1 (one) tablet (600 mg total) by mouth 2 (two) times a day before meals . Active cetirizine (ZYRTEC) 10 MG tablet Take 1 (one) tablet (10 mg total) by mouth daily . Active cholecalciferol , vitamin D3, (VITAMIN D3) 2,000 unit Tab Take by mouth. Active b complex vitamins (Vitamins B Complex) capsule Take 1 (one) capsule by mouth daily . Active baclofen (LIORESAL) 10 MG tablet TAKE 2 TABLETS BY MOUTH AT BEDTIME FOR 30 DAYS 02/26/2023 Active montelukast (SINGULAIR) 10 mg tablet Take 1 (one) tablet (10 mg total) by mouth nightly . 09/22/2022 Active rOPINIRole (REQUIP) 1 MG tablet Take 1 (one) tablet (1 mg total) by mouth 3 (three) times a day . 04/02/2021 Active sertraline (ZOLOFT) 100 MG tablet 02/25/2023 Active pregabalin (LYRICA) 300 MG capsule Take 1 (one) capsule (300 mg total) by mouth 2 (two) times a day . Active calcium carbonate (CALCIUM 500 ORAL) Take by mouth . Active Active Problems No known active problems Family History Medical History Relation Comments COPD Father Heart disease Father stent, bypass Hyperlipidemia Father Asthma Mother COPD Mother Cancer Mother lung Clotting disorder Mother Diabetes Mother [place] disease Mother Heart disease Mother Hyperlipidemia Mother Hypertension Mother Irregular heart beat Mother Obesity Mother Stroke Mother Relation Status Comments Father Mother Social History Tobacco Use Types Packs/Day Years Used Date Smoking Tobacco: Never Smokeless Tobacco: Never Alcohol Use Standard Drinks/Week Comments No 0 (1 standard drink = 0.6 oz pur e alcohol) Comments No Sex and Gender Information Value Date Recorded Sex Assigned at Not on file Legal Sex Female 10:22 AM EDT Gender Identity Female 10/11/2024 9:28 AM EST Sexual Orientation Straight 10/11/2024 9: 28 AM EST Last Filed Vital Signs Vital Sign Reading Time Taken Comments Blood Pressure 139/87 03/03/2023 2:44 PM EDT Pulse 94 03/03/2023 2:44 PM EDT Temperature 36.8 C (98.3 F) 10/11/2024 9:42 AM EST Respiratory Rate 18 01/06/2023 5:48 PM EDT Oxygen Saturation 97% 01/06/2023 4:22 PM EDT Inhaled Oxygen Concentration - - Weight 94.8 kg (209 lb) 10/11/2024 9:42 AM EST Height 157.5 cm (5' 2 ) 10/11/2024 9:42 AM EST Body Mass Index 38.23 10/11/2024 9:42 AM EST Plan of Treatment Upcoming Encounters Date Type Department Care Team (Late st Contact Info) Description 10/12/2025 10:30 AM EST Office Visit [facility] [address] [facility] [place] [address] Dimas Adair MD [address] [place] [phone] Health Maintenance Due Date Last Done Comments CT Colonography 1979 Fecal DNA 1979 Fecal occult blood test (FOBT,FIT) 1979 Flexible sigmoidoscopy 1979 Depression Screening/Follow- Up (PHQ-2/9) 1991 Hepatitis C Screening 1997 Mammogram 2019 Pap Smear 03/20/2020 03/20/2017 Cervical Cancer Screening 03/20/2022 HPV/Cotest 03/20/2022 03/20/2017 Wellness Visit 04/11/2023 04/11/2022 COVID-19 Vaccine ( - 2023-2 5 season) 2024 Tetanus: Every 10yrs 09/08/2024 09/08/2014 Influenza Vaccine (#1) 2025 Colonoscopy 12/10/2027 12/09/2017 Colorectal Cancer Screening/Monitoring 12/10/2027 HIV Screening Completed 10/20/2017 Pneumococcal Vaccine: Ped or At-Risk Aged Out No longer eligible b ased on patient's age to complete this topic Procedures Procedure Name Priority Date/Time Associated Diagnosis Comments HIV 1/2 SCREEN (4TH GENERATION) Routine 10/20/2017 5:25 PM EST Encounter for general adult medical examination without abnormal findings THINPREP PAP SMEAR Routine 03/20/2017 12 :00 AM EDT HIGH RISK HPV WITH GENOTYPE 16,18 Routine 03/20/2017 12:00 AM EDT Encounter for general adult medical examination without abnormal findings from Last 3 Months or Most Recently Relevant to Health Maintenance Results * HIV Antibody (HIV1/HIV2) (10/20/2017 5:25 PM EST) HIV 1-2 Screen Negative Negative 10/21/2017 9:47 AM EST [facility] Blood BLOOD SPECIMEN / Unknown 10/20/2017 5:25 PM EST 10/20/2017 10:58 PM EST Narrative [facility] - 10/21/2017 9:47 AM EST Test performed using [employer] Immunodiagnostic system. us Edu Parry MD LAB BLOOD ORDERABLES Lou l Result [facility] [address] [place] [address] * High Risk HPV with Genotype 16,18 (03/20/2017 12:00 AM EDT) HPV 16 Negative Negative 04/01/2017 2:01 PM EDT [facility] HPV 18 Negative Negative 04/01/2017 2:01 PM EDT [facility] HPV, Other HR Types Negative Negative 04/01/2017 2:01 PM EDT [facility] Pap, Liquid Based CERVIX UTERI STRUCTURE / Unknown 03/20/2017 03/31/2017 9:32 PM EDT Narrative [facility] - 04/01/2017 2:01 PM EDT Assay performed using [employer] 4800 system utilizing Real-Time PCR to amplify target HPV DNA. This system specifically identifies HPV16 and HPV18 while concurrently detecting the other twelve high risk types (31,33,35,39,45,51,52,56,58,59,66,68). Shanice Richard DO BODY FLUIDS AND STO OLS ORDERABLES Final Result [facility] [address] [place] [id number] * Thinprep Pap Smear (03/20/2017 12:00 AM EDT) 03/20/2017 Narrative [facility] - 03/20/2017 12:00 AM EDT Patient Name: CELINA GASPAR Source Thin Prep Cervical/Endocervical-Pap Smear Clinical History None given Specimen Adequacy Satisfactory Transformation zone component identified. Diagnosis Negative for Intraepithelial Lesion or Malignancy. HPV Results HPV 16/18/Other HPV16: Negative HPV18: Negative HPVOTHER: Negative Assay performed using [employer] 4800 system utilizing Real-Time PCR toamplify target HPV DNA. This system specifically identifies HPV16 [id number] while concurrently detecting the other twelve high risk types(31,33,35,39,45,51,52,56,58,59,66,68). Completed by on 2017-04-02 Electronically Signed By Arielle NEFF (ASCP) , [employer] (Case signed 03/30/2017) The Papanicolaou smear is a screening tool, and like any screen, has an inherent false negative rate. Interpretation of results should be made in the context of patient history and clinical findings. Shanice Leemary Jose Manuel DO PATHOLOGY/CYTOLOGY ORDERABLES Final Result [facility] from Last 3 Months or Most Recently Relevant to Health Maintenance Insurance [facility] HMO/CHOICE PLUS/DULCE/DULCE PLUS Care Teams High Risk Case Manager Relationship Specialty Start Date End Date Back, MD Felipe [address] [place] [address] PCP - General Internal Medicine 03/26/15
--- OUTSIDE RECORDS SUMMARY | 2025-04-25 09:52 | XMS_ITS | Clinical Summary ---
Author Organization [facility] Address [address] [place] [address] Care Team Providers Care Special Event Assistant Name Role Phone Alcides Adam MD Primary Care Provider [phone] Allergies Active Allergy Reactions Criticality Noted Date Comments Chlorhexidine Rash Low 03/03/2023 Topiramate 10/29/2023 Made her feel overly thirsty and caused bad smell and taste. Medications sertraline (Zoloft) 100 MG tablet 02/26/20 23 Active gemfibrozil (Lopid) 600 MG tablet 02/13/20 23 Active fluticasone (Flonase) 50 MCG/ACT nasal spray Administer 2 sprays into each nostril Daily 09/22/20 22 Active diclofenac sodium 1 % gel 01/07/20 23 Active cholecalciferol (Vitamin D-3) 50 MCG (1999) tablet Take by mouth Activ e cetirizine (ZyrTEC) 10 MG tablet Take 10 mg by mouth in the morning. Active calcium 500 MG tablet Take 1 tablet by mouth in the morning and 1 tablet before bedtime. Active b complex vitamins capsule Take 1 capsule by mouth in the morning. Active biotin 10 MG tablet 1 (one) time each day at the same time Active famotidine (Pepcid) 20 MG tablet Take 20 mg by mouth in the morning and 20 mg before bedtime. 07/13/20 23 Active montelukast (Singulair) 10 MG tabletIndicatio ns:Idiopathic progressive polyneuropathy, Non-seasonal allergic rhinitis due to pollen Take 1 tablet (10 mg) by mouth at bedtime 90 tablet 3 10/31/19 25 026 Active pregabalin (Lyrica) 300 MG capsuleIndicati ons:Idiopathic progressive polyneuropathy, Non-seasonal allergic rhinitis due to pollen Take 1 capsule (300 mg) by mouth in the morning and 1 capsule (300 mg) before bedtime. 180 capsule 3 10/31/19 25 026 Active Rimegepant Sulfate (Nurtec) 75 MG tablet dispersibleIndi cations:Intract able 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 Take 75 mg by mouth See administration instructions Take 1- 75mg tablet by mouth as needed at the onset of migraine. 16 tablet 11 10/31/19 25 Active baclofen (Lioresal) 10 MG tabletIndicatio ns:Cervical paraspinal muscle spasm TAKE 2 TABLETS BY MOUTH AT BEDTIME FOR 30 DAYS 60 tablet 3 12/17/19 25 Active nortriptyline (Pamelor) 50 MG capsuleIndicati ons:Idiopathic progressive polyneuropathy, Intractable 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 Take 3 capsules (150 mg) by mouth at bedtime 270 capsule 3 02/14/20 25 026 Active rOPINIRole (Requip) 1 MG tabletIndicatio ns:Restless Leg Syndrome Take 1 tablet (1 mg) by mouth in the morning and 1 tablet (1 mg) in the evening and 1 tablet (1 mg) before bedtime. 270 tablet 3 02/14/20 25 026 Active ALPRAZolam (Xanax) 0.25 MG tabletIndicatio ns:Claustrophob ia Take 1 tab 30-45 min before PAP therapy nightly 90 tablet 1 03/14/20 25 Active clindamycin (Cleocin) 300 MG capsuleIndicati ons:MRSA (methicillin resistant staph aureus) culture positive Take 1 capsule (300 mg) by mouth in the morning and 1 capsule (300 mg) in the evening and 1 capsule (300 mg) before bedtime. Do all this for 7 days. 21 capsule 04/11/20 25 025 Active Problems Problem Noted Date Diagnosed Date Claustrophobia 12/06/2024 Assessment & Plan (03/14/2025 5:41 PM EDT): Add alprazolam 0.25 ahs. Orders: ALPRAZolam (Xanax) 0.25 MG tablet; Take 1 tab 30-45 min before PAP therapy nightly Assessment & Plan (12/06/2024 1:26 PM EST): Once machine is received, pt to call for Rx alprazolam 0.25 hs for better tolerance of mask on face. Trochanteric bursitis of both hips 08/24/2023 Polyneuropathy due to type 2 diabetes mellitus 1 10/20/2022 Obstructive sleep apnea 05/20/2023 Hypersomnia 05/20/2023 Assessment & Plan (03/14/2025 5:41 PM EDT): Discussed modafinil. May start 100 qam if/when desired., but first optimize PAP use. Cervical paraspinal muscle spasm 05/20/2023 MRSA (methicillin resistant Staphylococcus aureus) septicemia 05/19/2023 Pain in left foot 05/19/2023 Acute arthropathy 03/08/2023 Bilateral carpal tunnel syndrome 03/08/2023 Carpal tunnel syndrome of left wrist 03/08/2023 Cervical disc displacement 03/08/2023 Charcot's joint, left ankle and foot 03/08/2023 Chronic migraine without aur a, not intractable, without status migrainosus 03/08/2023 Closed fracture of metatarsal bone 03/08/2023 Closed nondisplaced fracture of second metatarsal bone of left foot 03/08/2023 Closed fracture of navicular bone of foot 2022 Closed nondisplaced fracture of intermediate cuneiform of left foot 03/08/2023 Contracture, left ankle 03/08/2023 Discitis of thoracic region 03/08/2023 Disturbance of skin sensation 03/08/2023 Elevated C-reactive protein (CRP) 03/08/2023 Idiopathic progressive polyneuropathy 03/08/2023 Inattention 03/08/2023 Infection of thoracic spine 03/08/2023 Insomnia 03/08/2023 Limb pain 03/08/2023 Lumbar radiculopathy 03/08/2023 Lumbosacral spondylosis without myelopathy 03/08 Migraine 03/08/2023 Myalgia 03/08/2023 Hereditary and idiopathic neuropathy, unspecifie d 03/08/2023 Primary osteoarthritis, unspecified ankle and fo ot 03/08/2023 Tarsal tunnel syndrome 03/08/2023 Type 2 diabetes mellitus with diabetic polyneuro alyssia 03/08/2023 Pre-diabetes 06/30/2022 Anemia 2022 Thyroid nodule 05/27/2022 Restless legs 05/13/2021 BUCK (obstructive sleep apnea) 05/11/2020 Assessment & Plan (03/14/2025 5:41 PM EDT): (Continue PAP.) Discussed options, including BiPAP. Not clear at the moment that BiPAP is needed. Get data sheets for both 2023 sleep studies (NOT faxed). Get full reports for both 2018 sleep studies (NOT faxed). Assessment & Plan (12/06/2024 1:26 PM EST): Submit for warranty replacement machine - pt's machine is recalled. Pt may need to ask [facility] Would continue with current (Dreamwear) mask. See below. Get all [facility] sleep studies (full). Weight loss. Assessment & Plan (12/06/2024 1:26 PM EST): Orders: Ambulatory referral to Neurology Epidural abscess ([facility]) 08/20/2018 Septic arthritis 08/20/2018 Abdominal pain 05/04/2018 Pure hyperglyceridemia 05/04/2018 Pyelonephritis 05/04/2018 Neoplasm of uncertain behavior of skin 8 Peripheral neuropathy 12/01/2017 Basal cell carcinoma of skin of face 09/16/2017 Overview (03/08/2023): Added automatically from request for surgery [id number] Overview: Added automatically from request for surgery [id number] Mixed hyperlipidemia 03/19/2017 Carpal tunnel syndrome of right wrist 03/05/2017 Vitamin D deficiency 09/11/2014 GERD (gastroesophageal reflux disease) 4 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 06/09/2014 Chronic renal impairment, stage 3 (moderate) 02/2014 Thoracic degenerative disc disease 05/09/2014 Seasonal allergies 01/13/2014 CRI (chronic renal insufficiency) 10/25/2013 Depression with anxiety 06/24/2013 Hyperglycemia 06/24/2013 Fatigue 07/20/2012 Encounters Date Type Department Care Team Description 04/20/2025 12:45 PM EDT Office Visit [facility] [address] [place] [phone] Dandy Wasserman, DPMónica MRSA (methicillin resistant staph aureus) culture positive (Primary Dx); Right foot pain; Skin ulcer of toe of right foot with fat layer exposed (HCC); Idiopathic progressive polyneuropathy; Infection of toe; Charcot arthropathy of midfoot; Ulcer of left foot, limited to breakdown of skin (HCC); Closed nondisplaced fracture of second metatarsal bone of right foot, initial encounter 04/20/2025 Bamboo flowsheet [facility] [address] [place] [phone] Dandy Wasserman, DPMónica 04/20/2025 Travel 04/19/2025 Travel 04/12/2025 Results Follow-Up [facility] [address] [place] [phone] Dandy Wasserman, INDER 04/12/2025 Clinisync Result Encounter [facility] External Department Unsolicited Dandy Wasserman DPM 04/11/2025 Telephone [facility] [address] [place] [phone] Dandy Wasserman, DPM 04/11/2025 Clinisync Result Encounter [facility] External Department Unsolicited Dandy Wasserman DPM 04/06/2025 5:10 PM EDT Ancillary Procedure [facility] [address] [place] [phone] 04/06/2025 4:30 PM EDT Office Visit [facility] [address] [place] [phone] Dandy Wasserman DPM Right foot pain (Primary Dx); Skin ulcer of toe of right foot with fat layer exposed (HCC); Infection of toe; Idiopathic progressive polyneuropathy; Generalized edema 04/06/2025 Bamboo flowsheet [facility] [address] [place] [address] Dandy Wasserman DPM 04/06/2025 Travel 03/14/2025 12:00 PM EDT Office Visit [facility] [address] [phone] Nash Block MD BUCK (obstructive sleep apnea) (Primary Dx); Claustrophobia ; Hypersomnia 03/14/2025 Bamboo flowsheet [facility] [address] [place] [phone] Nash Block MD 03/14/2025 Travel 02/13/2025 1:00 PM EDT Office Visit [facility] [address] [phone] Trace Casas MD Charcot's joint, left ankle and foot (Primary Dx); Gait instability; Idiopathic progressive polyneuropathy; Intractable 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 ; Restless legs; Carpal tunnel syndrome, bilateral; BUCK (obstructive sleep apnea) 02/13/2025 Bamboo flowsheet [facility] [address] [place] [phone] Trace Casas MD 02/13/2025 Travel from Last 3 Months Family History Medical History Relation Name Comments Heart attack Father Hypertension Father Diabetes Maternal Grandfather Heart disease Maternal Grandfather Hypertension Maternal Grandfather Diabetes Maternal Grandmother Heart disease Maternal Grandmother Hypertension Maternal Grandmother Diabetes Mother Heart disease Mother Hypertension Mother Lung cancer Mother Lung disease Mother Stroke Mother Heart disease Paternal Grandfather Heart disease Paternal Grandmother Other Son Syringomyelia Relation Name Status Comments Father Alive Maternal Grandfather Maternal Grandmother Mother Paternal Grandfather Paternal Grandmother Son Alive Social History Tobacco Use Types Packs/Day Years [...] on file Sexual Orientation Not on file Last Filed Vital Signs Vital Sign Reading Time Taken Comments Blood Pressure 128/89 04/20/2025 12:32 PM EDT Pulse 101 04/20/2025 12:32 PM EDT Temperature - - Respiratory Rate - - Oxygen Saturation 97% 05/10/2024 2:20 PM EDT Inhaled Oxygen Concentration - - Weight 95.3 kg (210 lb) 04/20/2025 12:32 PM EDT Height 157.5 cm (5' 2 ) 04/20/2025 12:32 PM EDT Body Mass Index 38.41 04/20/2025 12:32 PM EDT Plan of Treatment Upcoming Encounters Date Type Department Care Team (Late st Contact Info) Description 05/01/2025 4:00 PM EDT Office Visit [facility] [address] [place] [address] Dandy Wasserman, DPMónica [address] [place] [address] 05/02/2025 2:00 PM EDT Office Visit [facility] [address] [address] Jalyn Meng, WINDOW AND SIDING CRAFTSMAN [address], [facility] [address] [place] [address] 05/17/2025 1:20 PM EDT Office Visit [facility] [address] [facility] [address] [place] [address] Trace Casas MD [address] [facility] [address] [address] Procedures Procedure Name Priority Date/Time Associated Diagnosis Comments MRI FOOT RIGHT W WO CONTRAST 04/12/2025 6:48 AM EDT MHPT BUN + CREATININE Routine 04/11/2025 11:16 AM EDT XR FOOT 1-2 VIEWS RIGHT Routine 04/06/2025 5:06 PM EDT Right foot pain from Last 3 Months Results * MRI FOOT RIGHT W WO CONTRAST (04/12/2025 6:48 AM EDT) Anatomical Region Laterality Modality Other 04/12/2025 6:48 AM EDT Narrative 04/12/2025 6:51 AM EDT EXAM: MRI FOOT RIGHT W WO CONTRAST COMPARISON: Right toe x-rays from 04/04/2025. HISTORY: History of Charcot arthropathy in the left foot status post surgery. Infected right second toe with MRSA. Neuropathy and restless leg syndrome. TECHNIQUE: Multiplanar and multisequence imaging of the right foot was performed before and after administration of 15 mL of Dotarem. FINDINGS: There is an ulcer along the distal aspect of the second toe with moderate to marked subcutaneous edema and soft tissue swelling along the dorsal aspect of the foot extending into the second toe consistent with associated cellulitis. There is bone marrow edema and enhancement throughout the distal phalanx of the second toe including decreased T1 signal consistent with osteomyelitis in the distal phalanx of the second toe. Moderate to marked joint space narrowing involves the second and third tarsometatarsal joints as well as the medial aspect of the naviculocuneiform joint with mild to moderate generative change involving the midfoot and tarsometatarsal joints otherwise. There is moderate to marked bone marrow edema and enhancement within the cuneiform bones, cuboid bones and navicular bone. There is also moderate to marked bone marrow edema in the second through fifth metatarsals extending from the metatarsal bases into the distal diaphysis. There is mild bone marrow edema in the base of the first metatarsal. Findings likely relate to a combination of osteoarthritis and Charcot arthropathy/neuropathic joint disease. Superimposed infection is difficult to entirely exclude. An area of mildly heterogeneous increased T2 and STIR signal is present along the dorsal margin of the third tarsometatarsal joint. This measures 1.8 x 1.3 x 1.2 cm suspicious for a ganglion cyst. There also appears to be a ganglion cyst with an area of fluid signal along the dorsal margin of the base of the fifth metatarsal measuring 9 mm in diameter. Again superimposed infection is difficult to exclude in these areas. Flexor and extensor tendons in the midfoot and forefoot appear intact with no focal tendon tear or tenosynovitis. There is edema in the interosseous and plantar muscles and the midfoot and forefoot which is nonspecific. There is associated atrophic change likely related to chronic neuropathy. IMPRESSION: 1. There is an ulcer along the distal aspect of the second toe with moderate to marked cellulitis involving the second toe and dorsal aspect of the foot. 2. There is osteomyelitis involving the distal phalanx of the second toe as described above with bone marrow edema enhancement. 3. There is extensive bone marrow edema in the metatarsal bones and in the tarsal bones with joint space narrowing in the midfoot and tarsometatarsal joints more pronounced involving the second and third tarsometatarsal joints as well as the medial aspect of the naviculocuneiform joint. This likely represents a combination of osteoarthritis and neuropathic joint disease/Charcot arthropathy. Superimposed infection would be difficult to exclude in this area. 4. Areas of fluid signal present along the dorsal margin of the third tarsometatarsal joint base in the base of the fifth metatarsal as described above suspicious for ganglion cyst although again superimposed infection be difficult to include. Interpreted by: Hesham Mcarthur MD Signed by: Hesham Mcarthur MD 04/12/25 Final result Procedure Note Radiology, Radiologist, MD - 04/12/2025 EXAM: MRI FOOT RIGHT W WO CONTRAST COMPARISON: Right toe x-rays from 04/04/2025. HISTORY: History of Charcot arthropathy in the left foot status postsurgery. Infected right second toe with MRSA. Neuropathy and restless leg syndrome. TECHNIQUE: Multiplanar and multisequence imaging of the right foot was performed before and after administration of 15 mL of Dotarem. FINDINGS: There is an ulcer along the distal aspect of the second toe with moderate to marked subcutaneous edema and soft tissue swelling along thedorsal aspect of the foot extending into the second toe consistent withassociated cellulitis. There is bone marrow edema and enhancement throughout thedistal phalanx of the second toe including decreased T1 signal consistent with osteomyelitis in the distal phalanx of the second toe. Moderate to marked joint space narrowing involves the second and third tarsometatarsal joints as well as the medial aspect of thenaviculocuneiform joint with mild to moderate generative change involving the midfoot and tarsometatarsal joints otherwise. There is moderate to marked bone marrowedema and enhancement within the cuneiform bones, cuboid bones and navicularbone. There is also moderate to marked bone marrow edema in the second throughfifth metatarsals extending from the metatarsal bases into the distal diaphysis. There is mild bone marrow edema in the base of the first metatarsal.Findings likely relate to a combination of osteoarthritis and Charcot arthropathy/neuropathic joint disease. Superimposed infection is difficultto entirely exclude. An area of mildly heterogeneous increased T2 and STIR signal is presentalong the dorsal margin of the third tarsometatarsal joint. This measures 1.8 x1.3 x 1.2 cm suspicious for a ganglion cyst. There also appears to be a ganglioncyst with an area of fluid signal along the dorsal margin of the base of thefifth metatarsal measuring 9 mm in diameter. Again superimposed infection is difficult to exclude in these areas. Flexor and extensor tendons in the midfoot and forefoot appear intact withno focal tendon tear or tenosynovitis. There is edema in the interosseous and plantar muscles and the midfoot and forefoot which is nonspecific. There is associated atrophic change likely related to chronic neuropathy. IMPRESSION: 1. There is an ulcer along the distal aspect of the second toe withmoderate to marked cellulitis involving the second toe and dorsal aspect of thefoot. 2. There is osteomyelitis involving the distal phalanx of the second toeas described above with bone marrow edema enhancement. 3. There is extensive bone marrow edema in the metatarsal bones and in the tarsal bones with joint space narrowing in the midfoot and tarsometatarsal joints more pronounced involving the second and third tarsometatarsaljoints as well as the medial aspect of the naviculocuneiform joint. This likely represents a combination of osteoarthritis and neuropathic joint disease/Charcot arthropathy. Superimposed infection would be difficult to exclude in this area. 4. Areas of fluid signal present along the dorsal margin of the third tarsometatarsal joint base in the base of the fifth metatarsal asdescribed above suspicious for ganglion cyst although again superimposed infectionbe difficult to include. Interpreted by: Hesham Mcarthur MD Signed by: Hesham Mcarthur MD 04/12/25 Final result Dandy Wasserman DPM [facility] Final Result * (ABNORMAL) MHPT BUN + CREATININE (04/11/2025 [...] AM EDT Original Ordering Provider: DANDY WASSERMAN Dandy Wasserman DPM [facility] Final R esult [facility] * XR foot 1 or 2 views right (04/06/2025 5:06 PM EDT) Anatomical Region Laterality Modality Lower Extremities, Foot Right Radiogra phic Imaging Narrative 04/10/2025 9:41 AM EDT Imaging Result: XRAY RIGHT FOOT: AP/OBL- No fx. Lis franc diastasis concern with deformity. DP 2 mild cortical disruption 1-2mm possible. No bone density changes Dandy Wasserman DPM IMG XR PROCEDURES Final Result from Last 3 Months Insurance [facility] Care Teams Special Event Assistant Relationship Specialty Start Date End Date Back, MD Alcides [address] [place] [phone] PCP - General Family Medicine 12/08/24
--- OUTSIDE RECORDS SUMMARY | 2025-04-25 09:52 | XMS_ITS | Encounter Summary ---
Author Organization [facility] Address [address] [place] [address] Care Team Providers Care Petroleum Geologist Name Role Phone Alcides Adam MD Primary Care Provider [phone] Encounter Details Date Type Department Care Team (Latest Contact Info) Description 04/20/2025 Travel Social History Tobacco Use Types Packs/Day [...] Office Visit [facility] [address] [place] [address] Dandy Sánchez, DPMónica [address] [place] [address] 05/02/2025 2:00 PM EDT Office Visit [facility] [address] [address] Jalyn Meng, COMMERCIAL LOAN UNDERWRITER [address], [address] [phone] 05/17/2025 1:20 PM EDT Office Visit [facility] [address] [place] [address] Trace Casas MD [address] [facility] [address] [phone] documented as of this encounter Visit Diagnoses Not on filedocumented in this encounter Care Teams Petroleum Geologist Relationship Specialty Start Date End Date [place] [address] PCP - General Family Medicine 12/08/24 documented as of this encounter
--- OUTSIDE RECORDS SUMMARY | 2025-04-25 09:52 | XMS_ITS | Encounter Summary ---
Author Organization [facility] Address [address] [place] [address] Care Team Providers Care Scale Installer Name Role Phone Alcides Adam MD Primary Care Provider [phone] Reason for Visit * Reason Onset Date Comments MRI results 04/12/2025 Encounter Details Date Type Department Care Team (Late st Contact Info) Description 04/12/2025 Results Follow-Up [facility] [address] [place] [phone] Dandy Sánchez DPM [address] [place] [address] Social History Tobacco Use Types Packs/Day Years [...] Telephone Encounter - Sherie Bui LPN - 04/13/2025 9:07 AM EDT Pt notified. documented in this encounter Plan of Treatment Upcoming Encounters Date Type Department Care Team (Late st Contact Info) Description 05/01/2025 4:00 PM EDT Office Visit [facility] [address] [place] [address] Dandy Sánchez, DPM [address] [place] [address] 05/02/2025 2:00 PM EDT Office Visit [facility] [address] [facility] [address] [place] [address] Jalyn Meng, INVESTIGATION DIVISION SERGEANT [address] [facility] [address] [place] [phone] 05/17/2025 1:20 PM EDT Office Visit [facility] [address] [facility] [address] [place] [address] Trace Casas MD [address] [facility] [address], [place] [phone] documented as of this encounter Visit Diagnoses Not on filedocumented in this encounter Care Teams Scale Installer Relationship Specialty Start Date End Date Back, MD Alcides [address] [place] [phone] PCP - General Family Medicine 12/08/24 documented as of this encounter
--- OUTSIDE RECORDS SUMMARY | 2025-04-25 09:52 | XMS_ITS | Encounter Summary ---
Author Organization [facility] Address [address] [place] [address] Care Team Providers Care Sales Appointment Coordinator Name Role Phone Alcides Adam MD Primary Care Provider [phone] Encounter Details Date Type Department Care Team (Late Contact Info) Description 04/12/2025 Clinisync Result Encounter [facility] External Department Unsolicited Dandy Sánchez DPM [address] [place] [address] Social History Tobacco Use Types [...] Office Visit [facility] [address] [place] [phone] Dandy Sánchez DPM [address] [place] [address] 05/02/2025 2:00 PM EDT Office Visit [facility] [address] [phone] Jalyn Meng NP [address], [address] [place] [phone] 05/17/2025 1:20 PM EDT Office Visit [facility] [address] [place] [address] Trace Casas MD [address] [facility] [address] [place], [place] [phone] documented as of this encounter Procedures Procedure Name Priority Date/Time Associated Diagnosis Comments MRI FOOT RIGHT W WO CONTRAST 04/12/2025 6:48 AM EDT documented in this encounter Results * MRI FOOT RIGHT W WO [...] infection be difficult to include. Interpreted by: Robin Mcarthur MD Signed by: Robin Mcarthur MD 04/12/25 Final result Procedure Note Radiology, Radiologist, - 04/12/2025 EXAM: MRI FOOT RIGHT W [...] superimposed infectionbe difficult to include. Interpreted by: Robin Mcarthur MD Signed by: Robin Mcarthur MD 04/12/25 Final result us Dandy Sánchez DPM [facility] Final Result documented in this encounter Visit Diagnoses Not on filedocumented in this encounter Care Teams Sales Appointment Coordinator Relationship Specialty Start Date End Date Back, MD Alcides [address] [place] [phone] PCP - General Family Medicine 12/08/24 documented as of this encounter
--- OUTSIDE RECORDS SUMMARY | 2025-04-25 09:52 | XMS_ITS ---
Continuity of Care Document (CCD) Created on: April 25, 2025 Julisa Celina Sales External Reference #: [id number] : [id number] Sex: Female Author Organization [facility] Address [address] [place] [address] Phone [phone] Care Team Providers Care Director Channel Name Role Phone Back, Alcides MELENDREZ Care Team Information Claim Agent + [phone] Problems Active Problems Provider Date Chronic kidney disease stage 3 Nate Villar Onset: 06/09/2014 Chronic glomerulonephritis Doug Klein M.D. O nset: 06/09/2014 Non-steroidal anti-inflammatory agent Doug carlson M.D. Onset: 06/09/2014 Pyelonephritis Heather Forbes M.D. Onset: 04/06 Pure hyperglyceridemia Heather Forbes M.D. Onse t: 05/04/2018 Gastroesophageal reflux disease Heather Forbes M.D. Onset: 05/04/2018 Abdominal pain Doug Klein M.D. Onset: 05/04 Family History Date Family Member(s) Observation Comments Mother Lung Cancer Mother Kidney Disease Social History Type Date Description Comments Sex Female Tobacco Use Start: Unknown Patient has never smoked Smoking Status Reviewed: 05/13/24 Patient has never sm oked Results Test Acquired Date Facility Test Result H/L Range Note .Magnesium 05/10/2024 [place], [place] [phone] .Magnesium 2.2 .Urine Protein/Creat. Random 05/10/2024 [place] .Urine Protein Random 9 .Urine Creatini ne Random 132.0 .Urine Prot/Cre at Ratio 0.07 .Renal Panel 05/10/2024 [place] .Albumin 4.2 .Calcium 9.2 .Carbon Dioxide 25 .Chloride 101 .Phosphorus 3.8 .Potassium 4.0 .Sodium 141 .BUN 19 .GFR 52 High 20 .Creatinine-LC 1.3 .Urinalysis-Rout ine 05/10/2024 [place] Ua Specific Hart 1.020 Ua PH Test Strip 5.0 Ua Color yellow Ua Appearance clear Ua Protein trace Ua Glucose negative Ua Ketones negative Ua Bilirubin negative Ua Urobilinogen normal Ua Nitrite negative Ua Occult Blood negative .Renal Panel 05/17/2023 [place] .Albumin 4.1 .Calcium 9.5 .Carbon Dioxide 29 .Chloride 101 .Phosphorus 3.0 .Potassium 4.3 .Sodium 137 .BUN 17 .GFR >60 High 20 .Creatinine-LC 1.1 .Urine Protein/Creat. Random 05/17/2023 [place] .Urine Protein Random 10 .Urine Creatini ne Random 146.1 .Urine Prot/Cre at Ratio 0.07 .Ipth 05/17/2023 [place] .Ipth 47.1 .Vitamin D, 25 Hydroxy 05/17/2023 [place] .Vitamin D, 25 Hydroxy 53.1 .T-Sat-LC 05/20/2022 [place] .T-Sat-LC 0.18 .Tibc-LC 05/20/2022 [place] .Tibc-LC 263 .Ferritin 05/20/2022 [place] .Ferritin 164 .Iron 05/20/2022 [place] .Iron 48 .Transferrin-LC 05/20/2022 [place] .Transferrin-LC 280 .V Ipth-Vitamin D 05/20/2022 [place] .Ipth 39.91 .Vitamin D, 25 Hydroxy 35.3 .Magnesium 05/20/2022 [place], [place] [phone] .Magnesium 2.1 .Urine Protein/Creat. Random 05/20/2022 [place], [place] [phone] .Urine Protein Random 7 .Urine Creatini ne Random 97.1 .Urine Prot/Cre at Ratio 0.07 .Hemoglobin And Hematocrit 05/20/2022 [place], [place] [phone] .Hemoglobin Blood 11.1 .Hematocrit 33.3 .Renal Panel 05/20/2022 [place] .Albumin 4.4 .Calcium 10.0 .Carbon Dioxide 30 .Chloride 105 .Phosphorus 3.8 .Potassium 4.3 .Sodium 144 .BUN 18 .GFR 53 High 20 .GFR 53 High 20 .Creatinine-LC 1.13 .Renal Panel (Other Labs) 05/21/2021 [place], [place] [phone] .Albumin 4.2 .Calcium 9.2 .Carbon Dioxide 25 .Chloride 103 .Creatinine-LC 1.18 .Phosphorus 3.7 .Sodium 138 .BUN 19 .GFR 50 High 20 .Potassium 4.2 .Urine Protein/Creat. Random 05/21/2021 [place], [place] [phone] .Urine Protein Random 7 .Urine Creatini ne Random 115.7 .Magnesium 05/21/2021 [place] .Magnesium 2.2 .Urinalysis-Rout ine 05/21/2021 [place] Ua Specific Hart 1.020 Ua PH Test Strip 5.0 Ua Color YELLOW Ua Appearance CLEAR Ua Protein TRACE Ua Glucose NEGATIVE Ua Ketones NEGATIVE Ua Urobilinogen NORMAL Ua Occult Blood NEGATIVE .Urine Protein/Creat. Random 05/25/2020 [place] .Urine Protein Random 8 .Urine Creatini ne Random 101.2 .Urine Prot/Cre at Ratio 0.08 .Ua 05/25/2020 [place] Ua Appearance clear Ua Bilirubin - Ua Blood - Ua Color yellow Ua Glucose 100mg/dl Ua Leuko - Ua Nitrite - Ua PH Test Strip 6.0 Ua Protein - Ua Specific Hart 1.020 Ua Urobilinogen - .Renal Panel 05/25/2020 [place] .Albumin 4.4 .Calcium 10.1 .Carbon Dioxide 26 .Chloride 104 .Creatinine-LC 1.37 .Phosphorus 87 .Sodium 140 .BUN 24 .GFR-LC 43 High 20 .Potassium 4.6 .Ua 06/17/2019 [place] Ua Appearance HAZY Ua Bacteria 1+ Ua Bilirubin NEG Ua Blood NEG Ua Color YELLOW Ua Epithelial Cells QL 2-5 Ua Glucose NEG Ua Ketones NEG Ua Leuko NEG Ua Nitrite NEG Ua PH Test Strip 6.0 Ua Protein TRACE Ua Specific Hart 1.025 Ua Urobilinogen NORMAL Ua WBC 0-2 .Urine Protein/Creat. Random 06/17/2019 [place] .Urine Protein Random 18 .Urine Creatini ne Random 228.2 .Urine Prot/Cre at Ratio 0.08 .Magnesium 06/17/2019 [place] [phone] .Magnesium 2.3 .Hemoglobin And Hematocrit 06/17/2019 [place] .Hemoglobin Blood 12.1 .Hematocrit 35.4 .Renal Panel 06/17/2019 [place] .Albumin 4.3 .Calcium 10.4 .Carbon Dioxide 24 .Chloride 103 .Creatinine-LC 1.27 .Phosphorus 3.0 .Sodium 140 .BUN 18 .GFR-LC 47 High 20 .Potassium 3.8 .Renal Panel -LC 04/14/2018 [place] .Albumin 3.7 .Calcium 8.9 .Carbon Dioxide 30 .Chloride 101 .Creatinine-LC 1.28 .Phosphorus 3.6 .Sodium 140 .BUN 19 .GFR-LC 47 High 20 .Potassium 4.1 .Urine Protein/Creat. Random 04/14/2018 [place] .Urine Protein Random 7 .Urine Creatini ne Random 100.7 .Urine Prot/Cre at Ratio 0.07 .CBC W/Differential 04/14/2018 [place] .White Blood Count 8.6 .Red Blood Count 4.40 .Hemoglobin Blood 13.3 .Hematocrit 39.4 MCH (Corpuscula r Hemoglobin) 30.2 MCHC (Corpuscul ar Hemog Conc) 33.7 RDW 15.6 .Platelet Count Blood 232 Neutrophils 59 Fluid Lymphocytes 31 Monocytes 6 Fluid Body Eosinophils 3 Basophils % 1 Absolute Basophils 0.10 Absolute Eosinophils 0.20 Absolute Lymphocytes 2.70 Absolute Monocytes 0.50 .Ipth 04/14/2018 [place] .Ipth 63.56 Xray 11/18/[address], Abdomen, W/ Contrast SEE REPORT Xray 11/18/[address], Abdomen, W/ Contrast CORTICAL CYST L KIDY .Urinalysis-Cult ure 11/17/2017 [facility] [phone] Culture Urine NO SIGNIFICANT H .Urinalysis-Rout ine 11/17/2017 [facility] [phone] Ua Specific Hart 1.014 Ua PH Test Strip 6.0 Ua Color YELLOW Ua Appearance HAZY Ua WBC 6 Ua Protein NEG Ua Glucose NEG Ua Ketones NEG Ua Bilirubin NEG Ua Urobilinogen <2.0 Ua Nitrite NEG Ua Occult Blood MOD .CMP 11/17/2017 [facility] [phone] .Albumin 3.1 .Alt 18 .Calcium 8.6 .Carbon Dioxide 27 .Chloride 106 .Creatinine-LC 1.13 .Glucose Serum 113 .Alkaline Phos 78 .Potassium 3.7 .Protein-Total 6.8 .Sodium 140 .Ast 7 .BUN 17 .GFR 54 High 20 .Urine Prot/Creat Ratio 02/17/2017 [place] .Urine Prot/Creat Ratio 0.07 Miscellaneous Other 02/17/2017 [place] Misc Test - Put Test In Order completed .Renal Panel -LC 02/17/2017 [place] [phone] .Albumin 4.1 .Calcium 9.4 .Carbon Dioxide 26 .Chloride 100 .Creatinine-LC 1.31 .Phosphorus 3.4 .Sodium 138 .BUN 21 .GFR-LC 46 High 20 .Potassium 4.1 .BMP W/Egfr-LC 08/07/2016 [facility] [phone] .Sodium 141 .Potassium 4.3 .Chloride 101 .Carbon Dioxide 26 .Calcium 9.5 .Glucose Serum 100 .GFR-LC 52 High 20 .Creatinine-LC 1.17 .BUN 16 .Hemoglobin A1c-LC 08/07/2016 [facility] [phone] .Hemoglobin A1c-MC 5.1 .Lipid Panel 08/07/2016 [facility] [phone] .Cholesterol 216 .Cholester/HDL Ratio 6.2 High Density Lipoprotein 35 .LDL/HDL Ratio 79 .LDL Cholesterol 102 .Triglycerides 396 .CBC W/O Differential 08/07/2016 [facility] [phone] .Hematocrit 37.1 .Hemoglobin Blood 12.6 .Platelet Count Blood 200 .Red Blood Count 4.24 RDW 15.2 .White Blood Count 7.6 MCH (Corpuscula r Hemoglobin) 29.8 MCHC (Corpuscul ar Hemog Conc) 34.1 .Urinalysis-Rout ine 06/08/2015 [place] Ua Specific Hart 1.020 Ua PH Test Strip 5.0 Ua Color yellow Ua Appearance clear Ua Protein negative Ua Glucose negative Ua Bilirubin negative Ua Urobilinogen normal Ua Nitrite negative .Hemoglobin And Hematocrit 06/08/2015 [place] .Hemoglobin Blood 12.8 .Hematocrit 38.2 .Urine Protein/Creat. Random 06/08/2015 [place] .Urine Protein Random 13 .Urine Creatini ne Random 219.4 .Urine Prot/Cre at Ratio 0.05 Urine Culture 06/08/2015 [place] Culture Urine Routine see report .Renal Panel 06/08/2015 [place], [place] [phone] .Albumin 4.0 .Calcium 8.9 .Carbon Dioxide 26 .Chloride 101 .Creatinine-LC 1.29 .Phosphorus 3.0 .Potassium 3.6 .Sodium 139 .BUN 14 .GFR-LC 47 High 20 .Ua 12/29/2014 [place] Ua Appearance clear Ua Bilirubin negative Ua Blood trace Ua Color yellow Ua Epithelial Cells QL 2 to 5 Ua Glucose negative Ua Leuko negative Ua Nitrite negative Ua PH Test Strip 5.0 Ua Protein negative Ua RBC 0 to 2 Ua Specific Hart 1.020 Ua Urobilinogen normal .Renal Panel 12/29/2014 [place] [phone] .Albumin 4.1 .Calcium 9.7 .Carbon Dioxide 30 .Chloride 102 .Creatinine-LC 1.50 .Phosphorus 4.2 .Potassium 4.1 .Sodium 142 .BUN 18 .GFR-LC 40 High 20 .Urine Protein/Creat. Random 12/29/2014 [place] .Urine Protein Random 6 .Urine Creatini ne Random 126.0 .Urine Prot/Cre at Ratio 0.05 .Renal Panel 12/06/2014 [place] .Albumin 4.0 .Calcium 9.2 .Carbon Dioxide 28 .Chloride 101 .Creatinine-LC 1.32 .Phosphorus 3.0 .Potassium 4.3 .Sodium 139 .BUN 17 .GFR-LC 46 High 20 .Urine Protein/Creat. Random 12/06/2014 [place] .Urine Protein Random 7 .Urine Creatini ne Random 196.8 .Urine Prot/Cre at Ratio 0.04 .Ua 12/06/2014 [place] [phone] Ua Appearance clear Ua Bacteria 1+ Ua Bilirubin negative Ua Blood trace Ua Color yellow Ua Epithelial Cells QL 2 to 5 Ua Glucose negative Ua Leuko negative Ua Nitrite negative Ua PH Test Strip 6.0 Ua Protein negative Ua RBC 2 to 5 Ua Specific Hart 1.020 Ua Urobilinogen normal .Complement C3 06/13/2014 [place] [phone] .Complement C3 140 .Magnesium 06/13/2014 [place] .Magnesium 2.3 .Calcium 06/13/2014 [place] .Calcium 9.1 .Phosphorus 06/13/2014 [place] .Phosphorus 3.8 .Urine Protein 24HR 06/13/2014 [place] .Urine Protein Total 24H 63 .Urinalysis-Rout ine 06/13/2014 [place] Ua Specific Hart 1.015 Ua PH Test Strip 6.0 Ua Color YELLOW Ua Appearance CLEAR Ua Protein NEGATIVE Ua Glucose NEGATIVE Ua Bilirubin NEGATIIVE Ua Urobilinogen NORMAL Ua Nitrite NEGATIVE .V Ipth-Vitamin D 06/13/2014 [place] .Ipth 49.31 .Vitamin D, 25 Hydroxy 28.9 .Anca Panel-LC 06/13/2014 [place] .Anca-C 30 .Anca-P 7 .Urine Protein Elect Ran 06/13/2014 [place] Urine Interpretation NORMAL .GBM Antibody-LC 06/13/2014 [place] .Anti-GBM- 4 .Complement Total (CH50) 06/13/2014 [place] .Complement Total (CH50) 115 .Complement C4 06/13/2014 [place] .Complement C4 29 .Ipth 06/13/2014 [place] .Ipth 49.31 .Lipid Panel 06/13/2014 [place] .Cholesterol 41 .Cholester/HDL Ratio 5.6 High Density Lipoprotein 41 .LDL/HDL Ratio 58 .LDL Cholesterol 131 .Triglycerides 289 .Immunofixation- Urine 06/13/2014 [place] .Immunofixation-U rine NEGATIVE .Vitamin D, 25 Hydroxy 06/13/2014 [place] .Vitamin D, 25 Hydroxy 28.9 .Cryoglobulin 06/13/2014 [place] .Cryoglobulin 0 .Hepatitis B-Surface Antigen 06/13/2014 [place] .Hepatitis B-Surface Antigen NON REACTIVE .Hepatitis C 06/13/2014 [place] .Hepatitis C NON REACTIVE .Immunofixation- Serum 06/13/2014 [place] .Immunofixation-S genesis NEGATIVE .Hemoglobin And Hematocrit 06/13/2014 [place] .Hemoglobin Blood 13.0 .Hematocrit 37.9 .Urine Eosinophils Random 06/13/2014 [place] .Urine Eosinophils Random NONE SEEN .BUN 06/13/2014 [place] .BUN 18 .Creatinine-LC 06/13/2014 [place] .Creatinine-LC 1.27 .GFR-LC 06/13/2014 [place] .GFR-LC 58 High 20 .Sodium 06/13/2014 [place] .Sodium 138 .Potassium 06/13/2014 [place] .Potassium 4.4 .Chloride 06/13/2014 [place] .Chloride 103 .Carbon Dioxide 06/13/2014 [place] .Carbon Dioxide 27 .Renal Panel 05/30/2014 [facility] [phone] .Albumin 3.9 .Calcium 9.3 .Carbon Dioxide 27 .Chloride 101 .Creatinine-LC 1.41 .Potassium 3.6 .Sodium 136 .BUN 16 .GFR-LC 42 High 20 .GFR 51 High 20 .GFR 42 High 20 .Urinalysis-Rout ine 05/30/2014 [facility] [phone] Ua Specific Hart 1.030 Ua PH Test Strip 5.0 Ua Color yellow Ua Appearance hazy Ua Protein negative Ua Glucose negative Ua Ketones negative Ua Bilirubin negative Ua Urobilinogen normal Ua Nitrite negative .Renal Panel 05/22/2014 [facility] [phone] .Albumin 4.1 .Calcium 9.1 .Carbon Dioxide 27 .Chloride 102 .Creatinine-LC 1.45 .Potassium 3.8 .Sodium 138 .BUN 19 .GFR-LC 41 High 20 .GFR 50 High 20 .GFR 41 High 20 .Renal Panel 01/13/2014 [facility] [phone] .Albumin 4.1 .Calcium 9.3 .Carbon Dioxide 27 .Chloride 104 .Creatinine-LC 1.26 .Potassium 4.1 .Sodium 140 .BUN 19 .GFR-LC 49 High 20 .GFR 59 High 20 .GFR 49 High 20 Encounters Type Date Location Provider Dx Diagnosis Office Visit 05/13/2024 1:00p On[facility] Office SHUKRI Sebastian N11.9 Chronic tubulo-interstitial nephritis, unspecified N18.31 Chronic kidney disea se, stage 3a Office Visit 05/18/2023 11:00a Onset Office Jerica Stokes N11.9 Chronic tubulo-interstitial nephritis, unspecified N18.31 Chronic kidney disea se, stage 3a D50.9 Iron deficiency anem ia, unspecified E55.9 Vitamin D deficiency , unspecified Office Visit 05/23/2022 11:00a Onset Office Jerica Stokes N11.9 Chronic tubulo-interstitial nephritis, unspecified N18.31 Chronic kidney disea se, stage 3a D50.9 Iron deficiency anem ia, unspecified E55.9 Vitamin D deficiency , unspecified Office Visit 05/22/2021 1:30p Onset Office Tequila Giles NP N11.9 Chronic tubulo-interstitial nephritis, unspecified N18.30 Chronic kidney disea se, stage 3 unspecified Office Visit 06/08/2020 11:20a Onset Office Heather Forbes M.D. N11.9 Chronic tubulo-interstitial nephritis, unspecified N18.3 Chronic kidney disea se, stage 3 (moderate) Office Visit 06/22/2019 10:00a Onset Office Heather Forbes M.D. N11.9 Chronic tubulo-interstitial nephritis, unspecified N18.3 Chronic kidney disea se, stage 3 (moderate) Office Visit 05/04/2018 10:20a [facility] Heather Forbes M.D. N11.9 Chronic tubulo-interstitial nephritis, unspecified N18.3 Chronic kidney disea se, stage 3 (moderate) Office Visit 03/13/2017 2:00p Onset Office Heather Forbes M.D. N11.9 Chronic tubulo-interstitial nephritis, unspecified N18.3 Chronic kidney disea se, stage 3 (moderate) E78.1 Pure hyperglyceridem ia Office Visit 06/15/2015 1:00p Onset Office Heather king M.D. 585.3 Chronic Kidney Disease Stage 3 582.89 Interstitial Nephrit is 530.81 Esophageal Reflux Office Visit 12/15/2014 1:00p Onset Office BRENDEN Boyer 585.3 Chronic Kidney Disease Stage 3 582.89 Interstitial Nephrit is V58.64 Nursing Home (Current)Us e Of Non-Steroid Antiinflammatories 530.81 Esophageal Reflux Office Visit 07/07/2014 11:40a Onset Office Heather high M.D. 585.3 Chronic Kidney Disease Stage 3 582.89 Interstitial Nephrit is V58.64 Nursing Home (Current)Us e Of Non-Steroid Antiinflammatories 530.81 Esophageal Reflux Office Visit 06/09/2014 1:00p Onset Office Doug Elda ngo M.D. 585.3 Chronic Kidney Disease Stage 3 582.89 Interstitial Nephrit is V58.64 Nursing Home (Current)Us e Of Non-Steroid Antiinflammatories 789.00 Pain Abdominal Unspe c Site Assessments Date Code Description Provider 05/13/2024 N11.9 Chronic tubulo-i nterstitial nephritis, unspecified SHUKRI Sebastian 05/13/2024 N18.31 Chronic kidney disease, SHUKRI Tamez 05/18/2023 N11.9 Chronic tubulo-i nterstitial nephritis, unspecified Jerica Stokes 05/18/2023 N18.31 Chronic kidney disease, staenriqueta geronimo 3a Jerica Stokes 05/18/2023 D50.9 Iron deficiency anemia, unsp ecified Kike, Jerica 05/18/2023 E55.9 Vitamin D deficiency, unspec ified Kike, Jerica 05/23/2022 N11.9 Chronic tubulo-i nterstitial nephritis, unspecified [place], Jerica 05/23/2022 N18.31 Chronic kidney disease, stag e 3a Kike, Jerica 05/23/2022 D50.9 Iron deficiency anemia, unsp ecified Kike, Jerica 05/23/2022 E55.9 Vitamin D deficiency, unspec ified Kike, Jerica 05/22/2021 N11.9 Chronic tubulo-i nterstitial nephritis, unspecified Heather Kamadana M.D. 05/22/2021 N11.9 Chronic tubulo-i nterstitial nephritis, unspecified Tequila N Wehr, TABLET COATER 05/22/2021 N18.30 Chronic kidney disease, stag e 3 unspecified Heather Kamadana M.D. 05/22/2021 N18.30 Chronic kidney disease, stag e 3 unspecified Tequila N Wehr, TABLET COATER 06/08/2020 N11.9 Chronic tubulo-i nterstitial nephritis, unspecified Heather Kamadana M.D. 06/08/2020 N18.3 Chronic kidney disease, stag e 3 (moderate) Heather Kamadana M.D. 06/22/2019 N11.9 Chronic tubulo-i nterstitial nephritis, unspecified Heather Kamadana M.D. 06/22/2019 N18.3 Chronic kidney disease, stag e 3 (moderate) Heather Kamadana M.D. 05/04/2018 N11.9 Chronic tubulo-i nterstitial nephritis, unspecified Heather Kamadana M.D. 05/04/2018 N18.3 Chronic kidney disease, stag e 3 (moderate) Heather Kamadana M.D. 03/13/2017 N11.9 Chronic tubulo-i nterstitial nephritis, unspecified Heather Kamadana M.D. 03/13/2017 N18.3 Chronic kidney disease, stag e 3 (moderate) Heather Kamadana M.D. 03/13/2017 E78.1 Pure hyperglyceridemia Polly Forbes M.D. 06/15/2015 585.3 Chronic Kidney Disease Stage 3 Heather Forbes M.D. 06/15/2015 582.89 Interstitial Nephritis Polly Forbes M.D. 06/15/2015 530.81 Esophageal Reflux Heather stevens M.D. 12/15/2014 585.3 Chronic Kidney Disease Stage 3 Cheryl Palomo, DOCUMENTATION LIAISON 12/15/2014 582.89 Interstitial Nephritis Cheryl Palomo, DOCUMENTATION LIAISON 12/15/2014 V58.64 Nursing Home (Curren t)Use Of Non-Steroid Antiinflammatories Cheryl Palomo, DOCUMENTATION LIAISON 12/15/2014 530.81 Esophageal Reflux Cheryl liang, DOCUMENTATION LIAISON 07/07/2014 585.3 Chronic Kidney Disease Stage 3 Heather Forbes M.D. 07/07/2014 582.89 Interstitial Nephritis Polly Forbes M.D. 07/07/2014 V58.64 Nursing Home (Curren t)Use Of Non-Steroid Antiinflammatories Heather Forbes M.D. 07/07/2014 530.81 Esophageal Reflux Heather stevens M.D. 06/09/2014 585.3 Chronic Kidney Disease Stage 3 Doug Klein M.D. 06/09/2014 582.89 Interstitial Nephritis Kenroy Klein M.D. 06/09/2014 V58.64 Nursing Home (Curren t)Use Of Non-Steroid Antiinflammatories Doug Klein M.D. 06/09/2014 789.00 Pain Abdominal Unspec Site S yasmin Klein M.D.
--- OUTSIDE RECORDS SUMMARY | 2025-04-25 09:52 | XMS_ITS | Clinical Summary ---
Author Organization [facility] Address [address] [place] [address] Phone Care Team Providers Care Library Consultant Name Role Phone Unavailable Primary Care Provider Unavailabl e Social History Tobacco Use Types Packs/Day Years Used Date Smoking Tobacco: Never Assessed Comments Unknown Sex and Gender Information Value Date Recorded Sex Assigned at Not on file Legal Sex Female 12:57 PM EST Gender Identity Not on file Sexual Orientation Not on file Plan of Treatment Not on file
--- OUTSIDE RECORDS SUMMARY | 2025-04-25 09:52 | XMS_ITS | Encounter Summary ---
Author Organization [facility] Address [address] [place] [address] Care Team Providers Care Control Officer Name Role Phone Felipe Adam MD Primary Care Provider [phone] Encounter Details Date Type Department Care Team (Late st Contact Info) Description 05/01/2015 Abstract [facility] [address] [place] [phone] Hali Gallegos MA Social History Tobacco Use Types Packs/Day Years [...] Orientation Straight 10/11/2024 9: 28 AM EST documented as of this encounter Plan of Treatment Upcoming Encounters Date Type Department Care Team (Late st Contact Info) Description 10/12/2025 10:30 AM EST Office Visit [facility] [address] [facility] [place] [address] Dimas Adair MD [facility] [address] [place] [phone] documented as of this encounter Visit Diagnoses Not on filedocumented in this encounter Care Teams Control Officer Relationship Specialty Start Date End Date Back, MD Felipe [address] [phone] PCP - General Internal Medicine 03/26/15 documented as of this encounter
--- OUTSIDE RECORDS SUMMARY | 2025-04-25 09:52 | XMS_ITS | Encounter Summary ---
Author Organization [facility] Address [address] [place] [address] Care Team Providers Care Backfiller Name Role Phone Alcides Adam MD Primary Care Provider Encounter Details Date Type Department Care Team (Late Contact Info) Description 08/24/2023 Clinisync Result Encounter [facility] External Department Unsolicited Trace Casas MD [address] [facility] [address] [phone] Social History Tobacco Use Types Packs/Day Years [...] on file Sexual Orientation Not on file COVID-19 Exposure Response Date Recorded In the last 10 days, have yo u been in contact with someone who was confirmed or suspected to have Coronavirus/COVID-19? No / Unsure 08/19/2023 10:53 AM EST documented as of this encounter Plan of Treatment Upcoming Encounters Date Type Department Care Team (Late Contact Info) Description 05/01/2025 4:00 PM EDT Office Visit [facility] [address] [place] [phone] Dandy Sánchez DPM [address] [place], [place] [phone] 05/02/2025 2:00 PM EDT Office Visit [facility] [address] [place] [address] Jalyn Meng [employer] [address], [facility] [address] [facility] [phone] 05/17/2025 1:20 PM EDT Office Visit [facility] [address] [place] [address] Trace Casas MD [address] [facility] [address] [place] [address] documented as of this encounter Procedures Procedure Name Priority Date/Time Associated Diagnosis Comments XR WRIST RIGHT (MIN 3 VIEWS) 08/24/2023 3:55 PM EST documented in this encounter Results * XR WRIST RIGHT (MIN 3 VIEWS) (08/24/2023 3:55 PM EST) Anatomical Region Laterality Modality Other 08/24/2023 3:55 PM EST Narrative 08/24/2023 4:00 PM EST EXAM: XR WRIST RIGHT (MIN 3 VIEWS) HISTORY: Pain COMPARISON: None. IMPRESSION: FINDINGS/IMPRESSION: 1. For age there is moderate degenerative change at the STT joint. 2. Otherwise normal for age. 3. No chondrocalcinosis. 4. Early degenerative change at the 1st metacarpophalangeal joint (thumb). Interpreted by: Micky Lauren Jr., MD Signed by: Micky Lauren Jr., MD 08/24/23 Final result Procedure Note Radiology, Radiologist, MD - 08/24/2023 EXAM: XR WRIST RIGHT (MIN 3 VIEWS) HISTORY: Pain COMPARISON: None. IMPRESSION: FINDINGS/IMPRESSION: 1. For age there is moderate degenerative change at the STT joint. 2. Otherwise normal for age. 3. No chondrocalcinosis. 4. Early degenerative change at the 1st metacarpophalangeal joint(thumb). Interpreted by: Micky Lauren Jr., MD Signed by: Micky Lauren Jr., MD 08/24/23 Final result us Trace Casas MD [facility] Final Resul t documented in this encounter Visit Diagnoses Not on filedocumented in this encounter Care Teams Backfiller Relationship Specialty Start Date End Date Back, MD Alcides [address] [place], [place] [phone] PCP - General Family Medicine 12/08/24 documented as of this encounter
--- OUTSIDE RECORDS SUMMARY | 2025-04-25 09:52 | XMS_ITS | Clinical Summary ---
[facility] Organization [facility] Address [address] [place] [address] Care Team Providers Care Manager Financial Reporting Name Role Phone Back, Alcides MELENDREZ Primary Care Provider [phone] Allergies No known active allergies Medications Cetirizine HCl (ALL DAY ALLERGY) 10 MG Cap 7 Active gabapentin 600 MG Tab take 600 mg by mouth 2 times daily. 7 Active gemfibrozil 600 MG Tab take 600 mg by mouth 2 times daily. 30 minutes before morning and evening meal 7 Active paroxetine 20 MG Tab take 20 mg by mouth daily. 7 Active fluticasone 50 MCG/ACT Suspension nasal spray 2 sprays by Nasal route daily. Active hydroCODone-kat taminophen 5-325 MG Tab tablet take 1 tablet by mouth every 8 hours as needed. Active erythromycin 5 MG/GM Ointment ophthalmic ointment Apply to eye incisions 2 x a day 1 Tube 7 Active Active Problems Problem Noted Date Diagnosed Date Basal cell carcinoma 09/29/2017 Overview (09/29/2017): Added automatically from request for surgery [id number] Basal cell carcinoma of skin of face 09/16/2017 Neoplasm of uncertain behavior of skin Social History Tobacco Use Types Packs/Day Years Used Date Smoking Tobacco: Never Smokeless Tobacco: Never Alcohol Use Standard Drinks/Week Comments No 0 (1 standard drink = 0.6 oz pur e alcohol) Comments Unknown Sex and Gender Information Value Date Recorded Sex Assigned at Not on file Legal Sex Female 7:26 PM EST Gender Identity Female 06/25/2017 9:30 AM EDT Sexual Orientation Not on file Last Filed Vital Signs Vital Sign Reading Time Taken Comments Blood Pressure 117/78 11/24/2017 12:00 PM EST Pulse 65 11/24/2017 12:00 PM EST Temperature 36.6 C (97.9 F) 11/24/2017 12:00 PM EST Respiratory Rate 18 10/09/2017 11:44 AM EST Oxygen Saturation 94% 10/09/2017 11:44 AM EST Inhaled Oxygen Concentration - - Weight 100.5 kg (221 lb 8 oz) 02/26/2022 2:01 PM EDT Height 158.8 cm (5' 2.5 ) 02/26/2022 2:07 PM EDT Body Mass Index 39.87 02/26/2022 2:01 PM EDT Plan of Treatment Health Maintenance Due Date Last Done Comments HEPATITIS C VIRUS SCREENING 1979 HIV SCREENING DISCUSSION 1994 HEP B VACCINE (1 of 3 - 19+ 3-dose series) 1998 CERVICAL CANCER SCREENING DISCUSSION 2000 LIPID SCREENING 2019 MAMMOGRAM SCREENING DISCUSSION 2019 COLORECTAL CANCER SCREENING DISCUSSION 2024 COVID-19 VACCINE (1 - 2023-2 5 season) 2024 TETANUS 09/08/2024 09/08/2014 INFLUENZA VACCINE (#1) 2025 TDAP (ADULT) Completed 09/08/2014 HPV VACCINE Aged Out No longer eligi ble based on patient's age to complete this topic PNEUMOCOCCAL VACCINE SERIES Aged Out No longer eligible based on patient's age to complete this topic Insurance Care Teams Manager Financial Reporting Relationship Specialty Start Date End Date Back, MD Alcides [address] [place] [address] PCP - General Internal Medicine 07/31/17
== END 2025-04-25 09:50 | disposition home or self-care (01) ==
PROVIDERS: Visit Provider Physician Assistant
DX: M14.671 Charcot's joint, right ankle and foot (principal); L97.519 Non-pressure chronic ulcer of other part of right foot with unspecified severity; L97.529 Non-pressure chronic ulcer of other part of left foot with unspecified severity; E11.621 Type 2 diabetes mellitus with foot ulcer; L97.422 Non-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 with fat layer exposed; L97.512 Non-pressure chronic ulcer of other part of right foot with fat layer exposed
CPT/HCPCS: 73630; G0463

== ENCOUNTER 2025-04-25 11:00 | Outpatient (OUT) | payer OTHER, SELFPAY ==
--- NOTE | 2025-04-25 11:45 | XR_ITS ---
The [address] [address] Patient Name: CHASTITY GASPAR MRN: [id number] date: 1980 Sex: F Assigned Patient Location: [facility] Current Patient Location: [facility] Accession/Order Number: [id number] Exam Date: 04/25/2025 12:02 Report Date: 04/25/2025 12:05 At the request of: DAMON PROCTOR Procedure: XR foot SHAHEEN min 3V Bilateral foot series 3 views each Reason for exam: Bilateral feet ulcers. Charcot's foot. Next COMPARISON: Foot series 11/18/2024. FINDINGS: Right foot demonstrates soft tissue swelling without radiopaque foreign body or soft tissue gas. Mild scattered degenerative changes with plantar spurring. Hallux valgus deformity. No bony erosions to suggest osteomyelitis. Left foot: Left foot configuration is grossly unchanged from the prior study with hardware fixation involving the midfoot. No hardware fracture is seen. Diffuse soft tissue swelling is present. No soft tissue gas is noted. A somewhat linear radiopaque foreign body is seen projecting over the region of the second and third metatarsals, unchanged. Plantar spurring is noted. No acute bony process or definitive plain film evidence of osteomyelitis is seen. XR/XR foot SHAHEEN min 3V IMPRESSION: Overall, no significant change in left foot findings when compared to the prior study. No new hardware complication is seen. Right foot demonstrates soft tissue swelling without acute bony process or definitive plain film evidence of osteomyelitis. Impression dictated by: Derick Carr Jr., D.O. 04/25/2025 12:05 PM Dictation Location: [place] [address] Electronically authenticated by: [id number] Y Date: 04/25/2025 12:05
== END 2025-04-25 11:01 | disposition home or self-care (01) ==
LOC: RAD 11:05
PROVIDERS: PCP Internal Medicine; Visit Provider Physician Assistant
DX: M14.671 Charcot's joint, right ankle and foot (principal); L97.519 Non-pressure chronic ulcer of other part of right foot with unspecified severity; L97.529 Non-pressure chronic ulcer of other part of left foot with unspecified severity
CPT/HCPCS: 73630

== ENCOUNTER 2025-05-03 12:51 | Outpatient (OUT) | payer OTHER, SELFPAY ==
--- OUTSIDE RECORDS SUMMARY | 2024-09-20 07:15 | XMS_ITS ---
Author Organization [facility] [place] Address [address] [place] [address] Care Team Providers Care Senior Consumer Insights Consultant Name Role Phone None, Unknown or Primary Care Provider Unavailab Nimesh Plascencia Unavailable [phone] Allergies Allergen (clinical drug ingredient) Drug/Non Drug Allergy documented on EMR Reaction Allergy Type Onset Date Status ChloraPrep One Step Unknown Drug Allergy Active REASON FOR VISIT 4 week f/u Medications Medication SIG (Take, Route, Frequency, Duration) Notes Start Date End Date Status Alendronate Sodium 70 MG 1 tablet 30 min utes before the first food, beverage or medicine of the day with plain water Orally weekly for 94 days 07/01/2024 Active Baclofen Active Vitamin B Complex Ac tive Vitamin D Active Zoloft Active Lisdexamfetamine Dimesylate 50 MG Oral for 30 Days Active Lyrica Active Naltrexone Active Nurtec Active rOPINIRole HCl Activ e Famotidine 20 MG TAKE 1 TABLET BY BLANCA TH 2 TIMES DAILY Oral for 30 Days Active Gemfibrozil Active Biotin Active Calcium Active Social History Tobacco Use: Social History Observation Description Date Details (start date - stop date) Never Smoker NA - NA Tobacco Use/Smoking Question Answer Notes Patient is a nonsmoker Vital Signs Height 62 in 09/20/2024 Temperature 97.3 degrees Fahrenheit 09/20/20 24 Heart Rate 98 /min 09/20/2024 Oximetry 97 % 09/20/2024 Encounters Encounter Location Date Provider Diagnosis [facility] [place] (PODIATRY) [address] [place] [address] [place] [address] 09/20/2024 Nimesh Chase Pseudarthrosis after fusion or arthrodesis M96.0 ; Charcot's joint, left ankle and foot M14.672 ; Hereditary and idiopathic neuropathy, 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 and Pain in left foot M79.672 Assessments Encounter Date Diagnosis (ICD Code) Assessment Notes Treatment Notes Treatment Clinical Notes Section Notes 09/20/2024 Pseudarthrosis after fusion or arthrodesis (ICD-10 - M96.0) Patient should remain in the cam boot when performing any activities out of the house. But she may progress to normal shoes at home as pain allows. I recommended stretching exercises for her Achilles as well as RICE therapy. I recommended bone stimulator and she is to call the rep to see what the status of this is. Prescription for Jobst compression stockings 20 to 30 mmHg was provided for swelling management.I recommended follow-up in 6 weeks and if there is progression of bony healing and maintained stability we may progress her to normal shoes. I would like weightbearing foot x-rays at follow-up 09/20/2024 Charcot's joint, left ankle and foot (ICD-10 - M14.672) 09/20/2024 Hereditary and idiopathic neuropathy, unspecified (ICD-10 - G60.9) 09/20/2024 Pain in left foot (ICD-10 - M79.672) Plan Of Treatment Treatment Notes Assessment Notes Pseudarthrosis after fusion or arthrodes is Patient should remain in the cam boot when performing any activities out of the house. But she may progress to normal shoes at home as pain allows. I recommended stretching exercises for her Achilles as well as RICE therapy. I recommended bone stimulator and she is to call the rep to see what the status of this is. Prescription for Jobst compression stockings 20 to 30 mmHg was provided for swelling management.I recommended follow-up in 6 weeks and if there is progression of bony healing and maintained stability we may progress her to normal shoes. I would like weightbearing foot x-rays at follow-up Pending Test Test Name Order Date XR Foot LT (3 views) * 09/20/2024 Progress Notes * Celina GASPAR MDOB: [birth year] (44 yo F)Acc No.[id number]:09/20/2024 Follow Up Patient: Celina DRAKE Provider: Frank Chase DPM, MS :1980 A ge:44 Y S ex:Female Date:09/20/2024 Address:[address] [place] [address], [phone] Pcp:Unknown or None Check In:10:59 AM ESTCheck O ut:11:40 AM EST Subjective: * Chief Complaints: * 4 week f/u * HPI: G eneral: Patient returns to office today for 4 week follow up. Patient presents herself today fully weight bearing in her camboot. She does state she is ready to try and get out of the boot. She has been taking the boot off at home and even tried fitting her foot into a normal shoe. She states that she has been able to wear a noraml shoe around the house. Today she c/o pain in her achilles tendon region, feeling a tightness and pulling pain. The ulcer on her lateral foot has healed since last visit. She does have swelling around her ankle today. She has not heard back to see if her bone stimulator has been approved. * Active Problem List M79.672 Pain in left foot Modified On:12/30/2023W/U Status:confirmed M25.572 Pain in left ankle a nd joints of left foot Modified On:04/15/2023/U Status:confirmed M14.672 Charcot's joint, lef t ankle and foot Modified On:4Risk:HighW/U Status:confirmed M19.079 Primary osteoarthrit is, unspecified ankle and foot Modified On:04/15/2023W/U Status:confirmed G60.9 Hereditary and idiop athic neuropathy, unspecified Modified On:12/30/2023W/U Status:confirmed E11.42 Type 2 diabetes reid itus with diabetic polyneuropathy Modified On:02/11/2023W/U Status:confirmed M21.6X2 Other acquired defor mities of left foot Modified On:4Risk:HighW/U Status:confirmed M24.572 Contracture, left an kle Modified On:12/30/2023W/U Status:confirmed E11.42 Type 2 diabetes reid itus with diabetic polyneuropathy Modified On:10/02/2023W/U Status:confirmed T81.31XA 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 (surgical) 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, not elsewhere classified, initial encounter Modified On:04/06/2024U Status:confirmed L97.325 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 without evidence of necrosis Modified On:06/10/2024U Status:confirmed E11.622 Controlled type 2 di abetes mellitus with other skin ulcer, without long- term current use of insulin Modified On:06/10/2024U Status:confirmed L97.428 Non-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 with other specified severity Modified On:06/13/2024U Status:confirmed * Medical History: * Surgical History: b ack surgery hysterectomy carpal tunnel bilateral hands cholecystomy left midfoot osteotomy and charcot reconstruction 02/15/2024 * Hospitalization/Major Diagno stic Procedure: s ee above * Family History: M other: alive, diagnosed with Other malignant neoplasm of unspecified site, Diabetes mellitus without mention of complication, type II or unspecified type, not stated as uncontrolled, Unspecified essential hypertension, Unspecified heart disease. * Social History: T obacco Use: T obacco Use/Smoking P atient is a n onsmoker * Medications: T akingAlendronate Sodium 70 MG Tablet 1 tablet 30 minutes before the first food, beverage or medicine of the day with plain water Orally weekly Baclofen Biotin Calcium Famotidine 20 MG Tablet TAKE 1 TABLET BY MOUTH 2 TIMES DAILY Oral Gemfibrozil Lisdexamfetamine Dimesylate 50 MG Capsule Oral Lyrica Naltrexone Nurtec rOPINIRole HCl Vitamin B Complex Vitamin D Zoloft(Sertraline HCl) Taking Alendronate Sodium 70 MG Tablet 1 tablet 30 minutes before the first food, beverage or medicine of the day with plain water Orally weekly Taking Baclofen Taking Biotin Taking Calcium Taking Famotidine 20 MG Tablet TAKE 1 TABLET BY MOUTH 2 TIMES DAILY Oral Taking Gemfibrozil Taking Lisdexamfetamine Dimesylate 50 MG Capsule Oral Taking Lyrica Taking Naltrexone Taking Nurtec Taking rOPINIRole HCl Taking Vitamin B Complex Taking Vitamin D Taking Zoloft(Sertraline HCl) * Allergies: C hloraPrep One Step: Allergyno[Allergies Verified] Objective: * Vitals: H t: 62 in, Temp:97.3F, HR:98/min, Oxygen sat %:97%, Ht-cm: 157.48 cm. * Examination: P odiatry Examination: SKIN: s kin intact, n o sign of infection. MUSCULOSKELETAL: N o pain on palpation. Foot remains plantigrade and stable without range of motion in the midfoot or subtalar joint. Ankle joint dorsiflexion is 5 degrees past neutral with the knee extended. NEUROLOGICAL: l ight touch sensation intact, n egative tinel's sign. VASCULAR: P edal pulses palpable, C apillaryrefill is brisk to toe, mild to moderate foot swelling. X -rays: x-rays were obtained & reviewed in my office. 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 Subtalar joint appears to be stable and fused. All hardware remains stable. Assessment: * Assessment: 1. P seudarthrosis after fusion or arthrodesis - M96.0 (Primary) 2 . C harcot's joint, left ankle and foot - M14.672 R isk :High S pecify :midfoot 3 . H ereditary and idiopathic neuropathy, unspecified - G60.9 4. P ain in left foot - M79.672 Plan: * Treatment: 2. P ain in left foot I maging: XR Foot LT (3 views) * * Procedure Codes: * * Sign off status: Completed Visit Status: C HK (Check Out) true * Provider: Frank Chase DPM, MS Date: 11/21/2023 Generated for Raphael harrington/Henry/Danyellitting on: 0 05/03/2025 12:59 PM EDT History and Physical Notes * HPI (History of Present Illness) Category Sub-Category Detail Notes Category Not es General Patient returns to office today for 4 week follow up. Patient presents herself today fully weight bearing in her camboot. She does state she is ready to try and get out of the boot. She has been taking the boot off at home and even tried fitting her foot into a normal shoe. She states that she has been able to wear a noraml shoe around the house. Today she c/o pain in her achilles tendon region, feeling a tightness and pulling pain. The ulcer on her lateral foot has healed since last visit. She does have swelling around her ankle today. She has not heard back to see if her bone stimulator has been approved. Examination Category Sub-Category Detail Notes Category Not es Podiatry Examination SKIN: skin intact, no sign of infection X-rays: x-rays were obtained & reviewed in my office. 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 Subtalar joint appears to be stable and fused. All hardware remains stable. MUSCULOSKELETAL: No pain on palpation . Foot remains plantigrade and stable without range of motion in the midfoot or subtalar joint. Ankle joint dorsiflexion is 5 degrees past neutral with the knee extended NEUROLOGICAL: light touch sensatio n intact, negative tinel's sign VASCULAR: Pedal pulses palpable, Capillary refill is brisk to toe, mild to moderate foot swelling
--- OUTSIDE RECORDS SUMMARY | 2024-11-01 07:00 | XMS_ITS ---
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8 degrees Fahrenheit 11/01/19 25 Heart Rate 100 /min 11/01/2024 Oximetry 98 % 11/01/2024 Encounters Encounter Location Date Provider Diagnosis [facility] (PODIATRY) [address] [place] [address] [place] [address] 11/01/2024 Nimesh Chase Charcot's joint, lef t [...] Referral Date Details 11/03/2024 11/03/2024, Referral to [employer] Progress Notes * Celina GASPAR MDOB: [birth year] (44 yo F)Acc No.[id number]:11/01/2024 Follow Up Patient: Celina DRAKE Provider: Frank Chase DPM, MS :1980 A ge:44 Y S ex:Female Date:11/01/2024 Address:[address] [place] [address], [id number] Pcp:Unknown or None Check In:11:08 AM ESTCheck [...] polyneuropathy Modified On:10/02/2023/U Status:confirmed T81.31XA 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
--- OUTSIDE RECORDS SUMMARY | 2024-11-18 07:00 | XMS_ITS ---
Author Organization The [facility] in [place] Address [address] [place] [address] Care Team Providers Care Policy Checker Name Role Phone None, Unknown or Primary Care Provider Unavailab Nimesh Plascencia Unavailable [phone] Allergies Allergen (clinical drug ingredient) Drug/Non Drug [...] Encounters Encounter Location Date Provider Diagnosis [facility] (PODIATRY) [address] [place] [address] [place] [address] 11/18/2024 Nimesh Chase Pseudarthrosis after fusion or [...] Celina GASPAR MDOB: [birth year] (44 yo F)Acc No.[id number]:11/18/2024 Follow Up Patient: Celina DRAKE Provider: Frank Chase DPM, MS :1980 A ge:44 Y S ex:Female Date:11/18/2024 Address:[facility] [address] [facility], [id number] Pcp:Unknown or None Check In:10:44 AM ESTCheck [...] usculoskeletal: Bone/Joint Symptoms d enies. C senior care Pain d enies.?Leg cramps d enies. 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
--- OUTSIDE RECORDS SUMMARY | 2025-04-20 12:45 | XMS_ITS | Encounter Summary ---
Author Organization [facility] Address [address] [place] [address] Care Team Providers Care Safety Deposit Supervisor Name Role Phone Alcides Adam MD Primary Care Provider [phone] Reason for Visit * Reason Comments Follow-up RT foot pain/Review MRI results Encounter Details Date Type Department Care Team (Late st Contact Info) Description 04/20/2025 12:45 PM EDT Office Visit [facility] [address] [place] [address] Dandy Sánchez, DPMónica [address] [place] [address] MRSA (methicillin resistant staph aureus) [...] Neurology [address] [facility] [address] [place] [address] Trace Casas MD [address] [place] [address] 05/23/2025 4:00 PM EDT Office Visit [facility] [address] [facility] [address] [place] [address] Nash Block MD [address] [place], [place] [phone] documented as of this encounter Visit Diagnoses [...] encounter documented in this encounter Care Teams Safety Deposit Supervisor Relationship Specialty Start Date End Date Back, MD Alcides [address] [place] [address] PCP - General Family Medicine 12/08/24 documented as of this encounter
--- OUTSIDE RECORDS SUMMARY | 2025-05-03 12:55 | XMS_ITS | Clinical Summary ---
Author Organization [facility] Address [address] [place] [address] Phone Care Team Providers Care Correctional Guard Name Role Phone Unavailable Primary Care Provider [...]
--- OUTSIDE RECORDS SUMMARY | 2025-05-03 12:56 | XMS_ITS | Encounter Summary ---
Author Organization [facility] Address [address], [address] [place] [address] Care Team Providers Care Hose Sprayer Name Role Phone Felipe Adam MD Primary Care Provider [phone] Encounter Details Date Type Department Care Team (Late st Contact Info) Description 04/11/2025 Orders Only [facility] MRI [address] [place] [address] Micky Lauren Jr., MD [address] [place] [address] Ulcer of right foot, unspecified ulcer stage (HCC) (Primary Dx) Social History Tobacco Use Types Packs/Day Years Used Date Smoking Tobacco: Never Passive Smoke Exposure: Never Smokeless Tobacco: Never Alcohol Use Standard Drinks/Week Comments No 0 (1 standard drink = 0.6 oz pur e alcohol) [facility] Utilities Answer Date Recorded In the past 12 months has hulu, gas, oil, or water [employer] threatened to shut off services in your home? No 11/15/2024 AUDIT-C Answer Date Recorded Q1: How often do you have a drink containing alcohol? Never 04/04/2025 Q2: How many drinks containi ng alcohol do you have on a typical day when you are drinking? Patient does not drink Q3: How often do you have si x or more drinks on one occasion? Never 04/04/2025 Overall Financial Resource Strain (CARDIA) Answe r Date Recorded How hard is it for you to pa y for the very basics like food, housing, medical care, and heating? Somewhat hard 05/08/2024 PHQ-2 Answer Date Recorded PHQ-9 Total Score 0 11/15/2024 Hunger Vital Sign Answer Date Recorded Within the past 12 months, y ou worried that your food would run out before you got the money to buy more. Never true 11/15/19 25 Within the past 12 months, t he food you bought just didn't last and you didn't have money to get more. Never true 11/15/2024 PRAPARE - Transportation Answer Date Re corded In the past 12 months, has l ack of transportation kept you from medical appointments or from getting medications? No 11/05 In the past 12 months, has l ack of transportation kept you from meetings, work, or from getting things needed for daily living? No 11/15/2024 Housing Stability Vital Sign Answer Rikki e Recorded Unable to Pay for Housing in the Last Year Not o n file 05/08/2024 Number of Places Lived in the Last Year Not on f ile 05/08/2024 In the last 12 months, was t here a time when you did not have a steady place to sleep or slept in a long-term (including now)? No 05/08/2024 Housing Stability Vital Sign Answer Rikki e Recorded In the last 12 months, was t here a time when you were not able to pay the mortgage or rent on time? No 11/15/2024 In the past 12 months, how m any times have you moved where you were living? 0 11/15/2024 At any time in the past 12 m [place], were you homeless or living in a long-term (including now)? No 11/15/2024 Food Insecurity Answer Date Recorded Within the past 12 months, y ou worried that your food would run out before you got the money to buy more. 1 11/15/2024 Within the past 12 months, t he food you bought just didn't last and you didn't have money to get more. 1 11/15/2024 Comments No Sex and Gender Information Value Date Recorded Sex Assigned at Female 12/15/2024 9:45 AM EDT Legal Sex Female 10:13 AM EST Gender Identity Female 10/09/2020 8:11 AM EST Sexual Orientation Straight 10/09/2020 8: 11 AM EST Occupation Industry Job Start Date Job End Date Not on file Not on file Not on file Not on file documented as of this encounter Plan of Treatment Upcoming Encounters Date Type Department Care Team (Late st Contact Info) Description 07/27/2025 11:00 AM EDT [facility] [address] [place] [address] Felipe Adam MD [address] [place] [address] Return in about 3 months (around 07/19/2025). 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
--- OUTSIDE RECORDS SUMMARY | 2025-05-03 12:57 | XMS_ITS | Encounter Summary ---
Author Organization [facility] Address [address], [address] [place] [address] Care Team Providers Care Floral Arranger Name Role Phone Felipe Adam MD Primary Care Provider [phone] Reason for Visit * Reason Comments Medication Refill Fluconazole Encounter Details Date Type Department Care Team (Late st Contact Info) Description 09/30/2019 [facility]ill [facility]. [address] [place] [address] Dav Moralez MD [address] [place] [address] Medication Refill (Fluconazole) Social History Tobacco Use Types Packs/Day Years Used Date Smoking Tobacco: Never Smokeless Tobacco: Never Alcohol Use Standard Drinks/Week Comments No 0 (1 standard drink = 0.6 oz pur e alcohol) PHQ-2 Answer Date Recorded PHQ-2 Score 1 01/05/2019 Comments No Sex and Gender Information Value Date Recorded Sex Assigned at Female 12/15/2024 9:45 AM EDT Legal Sex Female 10:13 AM EST Gender Identity Female 10/09/2020 8:11 AM EST Sexual Orientation Straight 10/09/2020 8: 11 AM EST documented as of this encounter Plan of Treatment Upcoming Encounters Date Type Department Care Team (Late st Contact Info) Description 07/27/2025 11:00 AM EDT Office Visit [facility] [address] [place] [phone] Felipe Adam MD [address] [place] [address] Return in about 3 months (around 07/19/2025). documented as of this encounter Visit Diagnoses Not on filedocumented in this encounter Additional Health Concerns Infection Onset Date Last Indicated Resolved Time MRSA Comment:Blood and spine 08/201805/16/2016 04/04/2025 COVID-19 (Rule Out) 08/08/2020 08/08/2020 08/11/20 20 7:07 AM EST COVID-19 (Rule Out) 01/21/2021 01/21/2021 01/23/20 21 1:07 PM EDT COVID-19 (Rule Out) 02/13/2021 02/13/2021 02/15/20 21 11:42 AM EDT MDRO (multi-drug resistant organism) Comment:E. Coli urine 02/202305/02/2022 05/02/2022 documented as of this encounter Care Teams Floral Arranger Relationship Specialty Start Date End Date Felipe Adam MD [address] [place] [id number] PCP - General Internal Medicine 11/14/11 documented as of this encounter
--- OUTSIDE RECORDS SUMMARY | 2025-05-03 12:57 | XMS_ITS | Encounter Summary ---
Author Organization [facility] Address [address], [address] [place] [address] Care Team Providers Care Chef Head Name Role Phone Jair, Felipe MELENDREZ Primary Care Provider Encounter Details Date Type Department Care Team (Late st Contact Info) Description 01/26/2014 PAT Telephone [facility] PRE ADMIT [address] [place] [phone] Pushpa Harding, RN Social History Tobacco Use Types Packs/Day Years Used Date Smoking Tobacco: Never Alcohol Use Standard Drinks/Week Comments No 0 (1 standard drink = 0.6 oz pur e alcohol) Comments No Sex and Gender Information Value Date Recorded Sex Assigned at Female 12/15/2024 9:45 AM EDT Legal Sex Female 10:13 AM EST Gender Identity Female 10/09/2020 8:11 AM EST Sexual Orientation Straight 10/09/2020 8: 11 AM EST documented as of this encounter Last Filed Vital Signs Vital Sign Reading Time Taken Comments Blood Pressure - - Pulse - - Temperature - - Respiratory Rate - - Oxygen Saturation - - Inhaled Oxygen Concentration - - Weight 85.7 kg (189 lb) 01/26/2014 11:28 AM EDT Height 157.5 cm (5' 2 ) 01/26/2014 11:28 AM EDT Body Mass Index 34.57 01/26/2014 11:28 AM EDT documented in this encounter Plan of Treatment Upcoming Encounters Date Type Department Care Team (Late st Contact Info) Description 07/27/2025 11:00 AM EDT Office Visit [facility] [address] [place] [address] Felipe Adam MD [address] [place] [phone] Return in about 3 months (around 07/19/2025). [...] documented as of this encounter Care Teams Chef Head Relationship Specialty Start Date End Date Felipe Adam MD [address] [place] [phone] PCP - General Internal Medicine 11/14/11 documented as of this encounter
--- OUTSIDE RECORDS SUMMARY | 2025-05-03 12:57 | XMS_ITS | Encounter Summary ---
Author Organization [facility] Address [address], [address] [place] [address] Care Team Providers Care Policy Issue Clerk Name Role Phone Felipe Adam MD Primary Care Provider [phone] Reason for Visit * Reason Comments Medication Refill Fluconazole Encounter Details Date Type Department Care Team (Late st Contact Info) Description 08/18/2019 [facility]. [address] [place] [address] Dav Moralez MD [address] [place] [address] Medication Refill (Fluconazole) Social History Tobacco Use [...] AM EDT [facility] [address] [place] [phone] Felipe Adam MD [address] [place] [address] Return in about 3 months (around 07/19/2025). [...] documented as of this encounter Care Teams Policy Issue Clerk Relationship Specialty Start Date End Date Felipe Adam MD [address] [place] [phone] PCP - General Internal Medicine 11/14/11 documented as of this encounter
--- OUTSIDE RECORDS SUMMARY | 2025-05-03 12:58 | XMS_ITS | Continuity of Care Document ---
Author Organization [facility] Address [address] [place] [id number] Phone [phone] Care Team Providers Care Collision Repair Technician Name Role Phone Back, Alcides MELENDREZ Care Team Information Investment Manager [phone] Problems Active Problems Provider Date Chronic kidney [...] Test Result H/L Range Note .Magnesium 05/10/2024 [place], [place] [phone] .Magnesium 2.2 .Urine Protein/Creat. Random 05/10/2024 [place] .Urine Protein Random 9 .Urine Creatini ne Random 132.0 .Urine Prot/Cre at Ratio 0.07 .Renal Panel 05/10/2024 [place] .Albumin 4.2 .Calcium 9.2 .Carbon Dioxide 25 .Chloride 101 .Phosphorus 3.8 .Potassium 4.0 .Sodium 141 .BUN 19 .GFR 52 High 20 .Creatinine-LC 1.3 .Urinalysis-Rout ine 05/10/2024 [place] Ua Specific [place] 1.020 Ua PH Test Strip 5.0 Ua Color yellow Ua Appearance clear Ua Protein trace Ua Glucose negative Ua Ketones negative Ua Bilirubin negative Ua Urobilinogen normal Ua Nitrite negative Ua Occult Blood negative .Renal Panel 05/17/2023 [place] .Albumin 4.1 .Calcium 9.5 .Carbon Dioxide 29 .Chloride 101 .Phosphorus 3.0 .Potassium 4.3 .Sodium 137 .BUN 17 .GFR >60 High 20 .Creatinine-LC 1.1 .Urine Protein/Creat. Random 05/17/2023 [place] .Urine Protein Random 10 .Urine Creatini ne Random 146.1 .Urine Prot/Cre at Ratio 0.07 .Ipth 05/17/2023 [place] .Ipth 47.1 .Vitamin D, 25 Hydroxy 05/17/2023 [place] .Vitamin D, 25 Hydroxy 53.1 .T-Sat-LC 05/20/2022 [place] .T-Sat-LC 0.18 .Tibc-LC 05/20/2022 [place] .Tibc-LC 263 .Ferritin 05/20/2022 [place] .Ferritin 164 .Iron 05/20/2022 [place] .Iron 48 .Transferrin-LC 05/20/2022 [place] .Transferrin-LC 280 .V Ipth-Vitamin D 05/20/2022 [place] .Ipth 39.91 .Vitamin D, 25 Hydroxy 35.3 .Magnesium 05/20/2022 [place], [place] [phone] .Magnesium 2.1 .Urine Protein/Creat. Random 05/20/2022 [place], [place] [phone] .Urine Protein Random 7 .Urine Creatini ne Random 97.1 .Urine Prot/Cre at Ratio 0.07 .Hemoglobin And Hematocrit 05/20/2022 [place], [place] [phone] .Hemoglobin Blood 11.1 .Hematocrit 33.3 .Renal Panel 05/20/2022 [place] .Albumin 4.4 .Calcium 10.0 .Carbon Dioxide 30 .Chloride 105 .Phosphorus 3.8 .Potassium 4.3 .Sodium 144 .BUN 18 .GFR 53 High 20 .GFR 53 High 20 .Creatinine-LC 1.13 .Renal Panel (Other Labs) 05/21/2021 [place], [place] [phone] .Albumin 4.2 .Calcium 9.2 .Carbon Dioxide 25 .Chloride 103 .Creatinine-LC 1.18 .Phosphorus 3.7 .Sodium 138 .BUN 19 .GFR 50 High 20 .Potassium 4.2 .Urine Protein/Creat. Random 05/21/2021 [place], [place] [phone] .Urine Protein Random 7 .Urine Creatini ne Random 115.7 .Magnesium 05/21/2021 [place] .Magnesium 2.2 .Urinalysis-Rout ine 05/21/2021 [place] Ua Specific [place] 1.020 Ua PH Test Strip 5.0 Ua Color YELLOW Ua Appearance CLEAR Ua Protein TRACE Ua Glucose NEGATIVE Ua Ketones NEGATIVE Ua Urobilinogen NORMAL Ua Occult Blood NEGATIVE .Urine Protein/Creat. Random 05/25/2020 [place] .Urine Protein Random 8 .Urine Creatini ne Random 101.2 .Urine Prot/Cre at Ratio 0.08 .Ua 05/25/2020 [place], [place] [phone] Ua Appearance clear Ua Bilirubin - Ua Blood - Ua Color yellow Ua Glucose 100mg/dl Ua Leuko - Ua Nitrite - Ua PH Test Strip 6.0 Ua Protein - Ua Specific [place] 1.020 Ua Urobilinogen - .Renal Panel 05/25/2020 [place] .Albumin 4.4 .Calcium 10.1 .Carbon Dioxide 26 .Chloride 104 .Creatinine-LC 1.37 .Phosphorus 87 .Sodium 140 .BUN 24 .GFR-LC 43 High 20 .Potassium 4.6 .Ua 06/17/2019 [place] Ua Appearance HAZY Ua Bacteria 1+ Ua Bilirubin NEG Ua Blood NEG Ua Color YELLOW Ua Epithelial Cells QL 2-5 Ua Glucose NEG Ua Ketones NEG Ua Leuko NEG Ua Nitrite NEG Ua PH Test Strip 6.0 Ua Protein TRACE Ua Specific [place] 1.025 Ua Urobilinogen NORMAL Ua WBC 0-2 .Urine Protein/Creat. Random 06/17/2019 [place], [place] [phone] .Urine Protein Random 18 .Urine Creatini ne Random 228.2 .Urine Prot/Cre at Ratio 0.08 .Magnesium 06/17/2019 [place], [place] [phone] .Magnesium 2.3 .Hemoglobin And Hematocrit 06/17/2019 [place] .Hemoglobin Blood 12.1 .Hematocrit 35.4 .Renal Panel 06/17/2019 [place], [place] [phone] .Albumin 4.3 .Calcium 10.4 .Carbon Dioxide 24 .Chloride 103 .Creatinine-LC 1.27 .Phosphorus 3.0 .Sodium 140 .BUN 18 .GFR-LC 47 High 20 .Potassium 3.8 .Renal Panel -LC 04/14/2018 [place], [place] [phone] .Albumin 3.7 .Calcium 8.9 .Carbon Dioxide 30 .Chloride 101 .Creatinine-LC 1.28 .Phosphorus 3.6 .Sodium 140 .BUN 19 .GFR-LC 47 High 20 .Potassium 4.1 .Urine Protein/Creat. Random 04/14/2018 [place] .Urine Protein Random 7 .Urine Creatini ne Random 100.7 .Urine Prot/Cre at Ratio 0.07 .CBC W/Differential 04/14/2018 [place] .White Blood Count 8.6 .Red Blood Count 4.40 .Hemoglobin Blood 13.3 .Hematocrit 39.4 MCH (Corpuscula r Hemoglobin) 30.2 MCHC (Corpuscul ar Hemog Conc) 33.7 RDW 15.6 .Platelet Count Blood 232 Neutrophils 59 Fluid Lymphocytes 31 Monocytes 6 Fluid Body Eosinophils 3 Basophils % 1 Absolute Basophils 0.10 Absolute Eosinophils 0.20 Absolute Lymphocytes 2.70 Absolute Monocytes 0.50 .Ipth 04/14/2018 [place], [place] [phone] .Ipth 63.56 Xray 11/18/[address], Abdomen, W/ Contrast SEE REPORT Xray 11/18/[address], Abdomen, W/ Contrast CORTICAL CYST L KIDY .Urinalysis-Cult ure 11/17/2017 [facility] [phone] Culture Urine NO SIGNIFICANT H .Urinalysis-Rout ine 11/17/2017 [facility] [phone] Ua Specific [place] 1.014 Ua PH Test Strip 6.0 Ua [...] 54 High 20 .Urine Prot/Creat Ratio 02/17/2017 [place], [place] [phone] .Urine Prot/Creat Ratio 0.07 Miscellaneous Other 02/17/2017 [place] Misc Test - Put Test In Order completed .Renal Panel -LC 02/17/2017 [place] .Albumin 4.1 .Calcium 9.4 .Carbon Dioxide 26 [...] ar Hemog Conc) 34.1 .Urinalysis-Rout ine 06/08/2015 [place], [place] [phone] Ua Specific [place] 1.020 Ua PH Test Strip 5.0 Ua Color yellow Ua Appearance clear Ua Protein negative Ua Glucose negative Ua Bilirubin negative Ua Urobilinogen normal Ua Nitrite negative .Hemoglobin And Hematocrit 06/08/2015 [place] .Hemoglobin Blood 12.8 .Hematocrit 38.2 .Urine Protein/Creat. Random 06/08/2015 [place] .Urine Protein Random 13 .Urine Creatini ne Random 219.4 .Urine Prot/Cre at Ratio 0.05 Urine Culture 06/08/2015 [place], [place] [phone] Culture Urine Routine see report .Renal Panel 06/08/2015 [place] .Albumin 4.0 .Calcium 8.9 .Carbon Dioxide 26 .Chloride 101 .Creatinine-LC 1.29 .Phosphorus 3.0 .Potassium 3.6 .Sodium 139 .BUN 14 .GFR-LC 47 High 20 .Ua 12/29/2014 [place], [place] [phone] Ua Appearance clear Ua Bilirubin negative Ua Blood trace Ua Color yellow Ua Epithelial Cells QL 2 to 5 Ua Glucose negative Ua Leuko negative Ua Nitrite negative Ua PH Test Strip 5.0 Ua Protein negative Ua RBC 0 to 2 Ua Specific [place] 1.020 Ua Urobilinogen normal .Renal Panel 12/29/2014 [place], [place] [phone] .Albumin 4.1 .Calcium 9.7 .Carbon Dioxide 30 .Chloride 102 .Creatinine-LC 1.50 .Phosphorus 4.2 .Potassium 4.1 .Sodium 142 .BUN 18 .GFR-LC 40 High 20 .Urine Protein/Creat. Random 12/29/2014 [place] .Urine Protein Random 6 .Urine Creatini ne Random 126.0 .Urine Prot/Cre at Ratio 0.05 .Renal Panel 12/06/2014 [place] .Albumin 4.0 .Calcium 9.2 .Carbon Dioxide 28 .Chloride 101 .Creatinine-LC 1.32 .Phosphorus 3.0 .Potassium 4.3 .Sodium 139 .BUN 17 .GFR-LC 46 High 20 .Urine Protein/Creat. Random 12/06/2014 [place] .Urine Protein Random 7 .Urine Creatini ne Random 196.8 .Urine Prot/Cre at Ratio 0.04 .Ua 12/06/2014 [place], [place] [phone] Ua Appearance clear Ua Bacteria 1+ Ua Bilirubin negative Ua Blood trace Ua Color yellow Ua Epithelial Cells QL 2 to 5 Ua Glucose negative Ua Leuko negative Ua Nitrite negative Ua PH Test Strip 6.0 Ua Protein negative Ua RBC 2 to 5 Ua Specific [place] 1.020 Ua Urobilinogen normal .Complement C3 06/13/2014 [place] .Complement C3 140 .Magnesium 06/13/2014 [place] .Magnesium 2.3 .Calcium 06/13/2014 [place] .Calcium 9.1 .Phosphorus 06/13/2014 [place] .Phosphorus 3.8 .Urine Protein 24HR 06/13/2014 [place] .Urine Protein Total 24H 63 .Urinalysis-Rout ine 06/13/2014 [place] Ua Specific [place] 1.015 Ua PH Test Strip 6.0 Ua Color YELLOW Ua Appearance CLEAR Ua Protein NEGATIVE Ua Glucose NEGATIVE Ua Bilirubin NEGATIIVE Ua Urobilinogen NORMAL Ua Nitrite NEGATIVE .V Ipth-Vitamin D 06/13/2014 [place] .Ipth 49.31 .Vitamin D, 25 Hydroxy 28.9 .Anca Panel-LC 06/13/2014 [place] .Anca-C 30 .Anca-P 7 .Urine Protein Elect Ran 06/13/2014 [place] Urine Interpretation NORMAL .GBM Antibody-LC 06/13/2014 [place] .Anti-GBM- 4 .Complement Total (CH50) 06/13/2014 [place] .Complement Total (CH50) 115 .Complement C4 06/13/2014 [place] .Complement C4 29 .Ipth 06/13/2014 [place] .Ipth 49.31 .Lipid Panel 06/13/2014 [place] .Cholesterol 41 .Cholester/HDL Ratio 5.6 High Density Lipoprotein 41 .LDL/HDL Ratio 58 .LDL Cholesterol 131 .Triglycerides 289 .Immunofixation- Urine 06/13/2014 [place] .Immunofixation-U rine NEGATIVE .Vitamin D, 25 Hydroxy 06/13/2014 [place] .Vitamin D, 25 Hydroxy 28.9 .Cryoglobulin 06/13/2014 [place] .Cryoglobulin 0 .Hepatitis B-Surface Antigen 06/13/2014 [place] .Hepatitis B-Surface Antigen NON REACTIVE .Hepatitis C 06/13/2014 [place] .Hepatitis C NON REACTIVE .Immunofixation- Serum 06/13/2014 [place] .Immunofixation-S genesis NEGATIVE .Hemoglobin And Hematocrit 06/13/2014 [place] .Hemoglobin Blood 13.0 .Hematocrit 37.9 .Urine Eosinophils Random 06/13/2014 [place] .Urine Eosinophils Random NONE SEEN .BUN 06/13/2014 [place] .BUN 18 .Creatinine-LC 06/13/2014 [place] .Creatinine-LC 1.27 .GFR-LC 06/13/2014 [place] .GFR-LC 58 High 20 .Sodium 06/13/2014 [place], [place] .Sodium 138 .Potassium 06/13/2014 [place] .Potassium 4.4 .Chloride 06/13/2014 [place] .Chloride 103 .Carbon Dioxide 06/13/2014 [place] .Carbon Dioxide 27 .Renal Panel 05/30/2014 [facility] [phone] .Albumin 3.9 .Calcium 9.3 .Carbon Dioxide 27 .Chloride 101 .Creatinine-LC 1.41 .Potassium 3.6 .Sodium 136 .BUN 16 .GFR-LC 42 High 20 .GFR 51 High 20 .GFR 42 High 20 .Urinalysis-Rout ine 05/30/2014 [facility] [phone] Ua Specific [place] 1.030 Ua PH Test Strip 5.0 Ua [...] Provider Dx Diagnosis Office Visit 05/13/2024 1:00p [facility] SHUKRI Sebastian N11.9 Chronic tubulo-interstitial nephritis, unspecified N18.31 Chronic kidney disea se, stage 3a Office Visit 05/18/2023 11:00a [facility] Jerica Stokes N11.9 Chronic tubulo-interstitial nephritis, unspecified N18.31 Chronic kidney disea se, stage 3a D50.9 Iron deficiency anem ia, unspecified E55.9 Vitamin D deficiency , unspecified Office Visit 05/23/2022 11:00a [facility] Jerica Stokes N11.9 Chronic tubulo-interstitial nephritis, unspecified N18.31 Chronic kidney disea se, stage 3a D50.9 Iron deficiency anem ia, unspecified E55.9 Vitamin D deficiency , unspecified Office Visit 05/22/2021 1:30p [facility] Tequila Giles NP N11.9 Chronic tubulo-interstitial nephritis, unspecified N18.30 Chronic kidney disea se, stage 3 unspecified Office Visit 06/08/2020 11:20a [facility] Heather Forbes M.D. N11.9 Chronic tubulo-interstitial nephritis, unspecified N18.3 Chronic kidney disea se, stage 3 (moderate) Office Visit 06/22/2019 10:00a [facility] Heather Forbes M.D. N11.9 Chronic tubulo-interstitial nephritis, unspecified N18.3 Chronic kidney disea se, stage 3 (moderate) Office Visit 05/04/2018 10:20a [facility] Heather Forbes M.D. N11.9 Chronic tubulo-interstitial nephritis, unspecified N18.3 Chronic kidney disea se, stage 3 (moderate) Office Visit 03/13/2017 2:00p [facility] Heather Forbes M.D. N11.9 Chronic tubulo-interstitial nephritis, unspecified N18.3 Chronic kidney disea se, stage 3 (moderate) E78.1 Pure hyperglyceridem ia Office Visit 06/15/2015 1:00p [facility] Heather king M.D. 585.3 Chronic Kidney Disease Stage 3 582.89 Interstitial Nephrit is 530.81 Esophageal Reflux Office Visit 12/15/2014 1:00p [facility] BRENDEN Boyer 585.3 Chronic Kidney Disease Stage 3 582.89 Interstitial Nephrit is V58.64 Long Term (Current)Us e Of Non-Steroid Antiinflammatories 530.81 Esophageal Reflux Office Visit 07/07/2014 11:40a [facility] Heather high M.D. 585.3 Chronic Kidney Disease Stage 3 582.89 Interstitial Nephrit is V58.64 Long Term (Current)Us e Of Non-Steroid Antiinflammatories 530.81 Esophageal Reflux Office Visit 06/09/2014 1:00p [facility] Doug Elda ngo M.D. 585.3 Chronic Kidney Disease Stage 3 582.89 Interstitial Nephrit is V58.64 Long Term (Current)Us e Of Non-Steroid Antiinflammatories 789.00 Pain [...] 05/23/2022 N11.9 Chronic tubulo-i nterstitial nephritis, unspecified [place], Jerica 05/23/2022 N18.31 Chronic kidney disease, stag e 3a Kike, Jerica 05/23/2022 D50.9 Iron deficiency anemia, unsp ecified Kike, Jerica 05/23/2022 E55.9 Vitamin D deficiency, unspec ified Kike, Jerica 05/22/2021 N11.9 Chronic tubulo-i nterstitial nephritis, unspecified Heather Kamadana M.D. 05/22/2021 N11.9 Chronic tubulo-i nterstitial nephritis, unspecified Tequila N Wehr, HOSPICE MUSIC THERAPIST 05/22/2021 N18.30 Chronic kidney disease, stag e 3 unspecified Heather Kamadana M.D. 05/22/2021 N18.30 Chronic kidney disease, stag e 3 unspecified Tequila N Wehr, HOSPICE MUSIC THERAPIST 06/08/2020 N11.9 Chronic tubulo-i nterstitial nephritis, unspecified [...] Chronic Kidney Disease Stage 3 Cheryl Palomo, STRATEGIC ADVISOR 12/15/2014 582.89 Interstitial Nephritis Cheryl Palomo, STRATEGIC ADVISOR 12/15/2014 V58.64 Long Term (Curren t)Use Of Non-Steroid Antiinflammatories Cheryl Palomo, STRATEGIC ADVISOR 12/15/2014 530.81 Esophageal Reflux Cheryl liang, STRATEGIC ADVISOR 07/07/2014 585.3 Chronic Kidney Disease Stage 3 Heather Forbes M.D. 07/07/2014 582.89 Interstitial Nephritis Polly Forbes M.D. 07/07/2014 V58.64 Long Term (Curren t)Use Of Non-Steroid Antiinflammatories Heather Forbes M.D. 07/07/2014 530.81 Esophageal Reflux Heather stevens M.D. 06/09/2014 585.3 Chronic Kidney Disease Stage 3 Doug Klein M.D. 06/09/2014 582.89 Interstitial Nephritis Kenroy Klein M.D. 06/09/2014 V58.64 Long Term (Curren t)Use Of Non-Steroid Antiinflammatories Doug Klein M.D. 06/09/2014 789.00 Pain Abdominal Unspec Site S yasmin Klein M.D.
--- OUTSIDE RECORDS SUMMARY | 2025-05-03 12:58 | XMS_ITS | Encounter Summary ---
Author Organization [facility] Address [address], [address] [place] [address] Care Team Providers Care Lift Driver Name Role Phone Felipe Adam MD Primary Care Provider [phone] Reason for Visit * Reason Comments Medication Refill Encounter Details Date Type Department Care Team ([facility] Contact Info) Description 06/23/[address] [phone] Felipe Adam MD [address] [place] [phone] Medication Refill Social History Tobacco Use Types Packs/Day Years [...] Upcoming Encounters Date Type Department Care Team ([facility] Contact Info) Description 07/27/2025 11:00 AM EDT Office Visit [address] [phone] Felipe Adam MD [address] [place] [phone] Return in about 3 months (around 07/19/2025). documented as of this encounter Visit Diagnoses Diagnosis Depression with anxiety Dysthymic disorder documented in this encounter Additional Health Concerns [...] documented as of this encounter Care Teams Lift Driver Relationship Specialty Start Date End Date Back, MD Felipe [address] [place] [phone] PCP - General Internal Medicine 11/14/11 documented as of this encounter
--- OUTSIDE RECORDS SUMMARY | 2025-05-03 12:58 | XMS_ITS | Encounter Summary ---
Author Organization [facility] Address [address], [address] [place] [address] Care Team Providers Care On Air Talent Name Role Phone Felipe Adam MD Primary Care Provider [phone] Encounter Details Date Type Department Care Team (Latest Contact Info) Description 04/29/2022 Community Orders [facility] Heather Forbes MD [address] [place] [address] Interstitial nephritis chronic (Primary Dx); Stage 3a chronic kidney disease (HCC) Social History Tobacco Use Types Packs/Day Years Used Date Smoking Tobacco: Never Smokeless Tobacco: Never Alcohol Use Standard Drinks/Week Comments No 0 (1 standard drink = 0.6 oz pur e alcohol) Overall Financial Resource Strain (CARDIA) Answe r Date Recorded How hard is it for you to pa y for the very basics like food, housing, medical care, and heating? Not very hard 05/13/2021 PHQ-2 Answer Date Recorded PHQ-9 Total Score 12 04/11/2022 Hunger Vital Sign Answer Date Recorded Within the past 12 months, y ou worried that your food would run out before you got the money to buy more. Never true 05/13/20 21 Within the past 12 months, t he food you bought just didn't last and you didn't have money to get more. Never true 05/13/2021 PRAPARE - Transportation Answer Date Re corded Lack of Transportation (Medical) No 12/09/2019 Lack of Transportation (Non-Medical) No 12/09/2019 Comments No Sex and Gender Information Value [...] Description 07/27/2025 11:00 AM EDT Office Visit [address] [phone] Felipe Adam MD [address] [place] [phone] Return in about 3 months (around 07/19/2025). documented as of this encounter Results * Protein / Creatinine Ratio, Urine (05/20/2022 10:18 AM EDT) Total Protein, Urine 7 mg/dL 05/20/2022 10:18 AM EDT [employer] Comment:No normal range esta blished. Creatinine, Ur 97.1 28.0 - 217.0 mg/dL 05/20/2022 10:18 AM EDT [facility] Urine Total Protein Creatinine Ratio 0.07 0.00 - 0.20 05/20/2022 10:18 AM EDT [facility] URINE SPECIMEN / Unknown 05/20/2022 10:18 AM EDT 05/20/2022 10:19 AM EDT us Heather Forbes MD URINE ORDERABLES Final Result [facility] [address] [place] [address], [facility] [phone] [facility] [address] [place] [address], [facility] [phone] * PTH, Intact (05/20/2022 10:15 AM EDT) Pth Intact 39.91 15.0 - 65.0 pg/mL 05/20/2022 10:15 AM EDT [facility] Comment: SAMPLES FROM PATIENTS ROUTINELY RECEIVING HIGH DOSE BIOTIN THERAPY MAY SHOW FALSELY DEPRESSED RESULTS. ADDITIONAL INFORMATION MAY BE REQUIRED FOR DIAGNOSIS. BLOOD SPECIMEN / Unknown 05/20/2022 10:15 AM EDT 05/20/2022 10:18 AM EDT Heather Forbes MD CHEMISTRY ORDERABLES Final Re sult Performing Organization Address City/[facility]/ZIP Co de Phone Number [facility] [employer] [facility] [address] [place] [address], [facility] [phone] [facility] [address] [place] [address], [facility] [phone] * Vitamin D 25 Hydroxy (05/20/2022 10:15 AM EDT) Vit D, 25-Hydroxy 35.3 >29.9 ng/mL 05/20/2022 10:15 AM EDT [facility] Comment: Reference Range: Vitamin D status Range Deficiency <20 ng/mL Mild Deficiency 20-30 ng/mL Sufficiency 30-100 ng/mL Toxicity >100 ng/mL BLOOD SPECIMEN / Unknown 05/20/2022 10:15 AM EDT 05/20/2022 10:18 AM EDT Heather Forbes MD CHEMISTRY ORDERABLES Final Re sult Performing Organization Address City/[facility]/ZIP Co de Phone Number [facility] [address] [place] [address], [facility] [phone] [facility] [address] [place] [address], [facility] [phone] * Magnesium (05/20/2022 10:15 AM EDT) Magnesium 2.1 1.6 - 2.6 mg/dL 05/20/2022 10:15 AM EDT [facility] BLOOD SPECIMEN / Unknown 05/20/2022 10:15 AM EDT 05/20/2022 10:18 AM EDT Heather Forbes MD CHEMISTRY ORDERABLES Final Re sult Performing Organization Address City/[facility]/ZIP Co de Phone Number [facility] [address] [phone] * (ABNORMAL) Hemoglobin and Hematocrit (05/20/2022 10:15 AM EDT) Hemoglobin 11.1(L) 12.0 - 16.0 g/dL 05/20/2022 10:15 AM EDT [facility] Hematocrit 33.3(L) 36 - 46 % 05/20/2022 10:15 AM EDT [facility] BLOOD SPECIMEN / Unknown 05/20/2022 10:15 AM EDT 05/20/2022 10:18 AM EDT Heather Forbes MD HEMATOLOGY ORDERABLES Final R esult Performing Organization Address [facility]/ZIP Co de Phone Number [facility] [address] [place] [address], [facility] [phone] * (ABNORMAL) Renal Function Panel (05/20/2022 10:15 AM EDT) Glucose 125(H) 70 - 99 mg/dL 05/20/2022 10:15 AM EDT [facility] BUN 18 6 - 20 mg/dL 05/20/2022 10:15 AM EDT [facility] Creatinine 1.13(H) 0.50 - 0.90 mg/dL 05/20/2022 10:15 AM EDT [facility] BUN/Creatinine Ratio 16 9 - 20 05/20/2022 10:15 AM EDT [facility] Calcium 10.0 8.6 - 10.4 mg/dL 05/20/2022 10:15 AM EDT [facility] Albumin 4.4 3.5 - 5.2 g/dL 05/20/2022 10:15 AM EDT [facility] Phosphorus 3.8 2.6 - 4.5 mg/dL 05/20/2022 10:15 AM EDT [facility] Sodium 144 135 - 144 mmol/L 05/20/2022 10:[address] [facility] Potassium 4.3 3.7 - 5.3 mmol/L 05/20/2022 10:15 AM EDT [facility] Chloride 105 98 - 107 mmol/L 05/20/2022 10:[address] [facility] CO2 30 20 - 31 mmol/L 05/20/2022 10:[address] [facility] Anion Gap 9 9 - 17 mmol/L 05/20/2022 10:[address] [facility] GFR Non- 53(L) >60 mL/min 05/20/2022 10:[address] [facility] GFR >60 >60 mL/min 05/20/2022 10:15 AM EDT [facility] GFR Comment 05/20/2022 10:15 AM T [facility] Comment: Average GFR for 40-49 years old: 99 mL/min/1.73sq m Chronic Kidney Disease: <60 mL/min/1.73sq m Kidney failure: <15 mL/min/1.73sq m eGFR calculated using average adult body mass. Additional eGFR calculator available at: http://www.Like.fm.[employer]/multiple_crcl_2012.htm BLOOD SPECIMEN / Unknown 05/20/2022 10:15 AM EDT 05/20/2022 10:18 AM EDT us Heather Forbes MD CHEMISTRY ORDERABLES Final Re sult [facility] [address] 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 Coli urine 02/202305/02/2022 05/02/2022 documented as of this encounter Care Teams On Air Talent Relationship Specialty Start Date End Date Back, MD Felipe [address] [place] [id number] PCP - General Internal Medicine 11/14/11 documented as of this encounter
--- OUTSIDE RECORDS SUMMARY | 2025-05-03 12:59 | XMS_ITS | Clinical Summary ---
Author Organization [facility] Healthcare Address [address] [place] [address] Care Team Providers Care Incubator Machine Operator Name Role Phone Alcides Adam MD Primary Care Provider [phone] Allergies Active Allergy Reactions Criticality Noted Date [...] Orders: Ambulatory referral to Neurology Epidural abscess ([facility]) 08/20/2018 Septic arthritis 08/20/2018 Abdominal pain 05/04/2018 Pure hyperglyceridemia 05/04/2018 Pyelonephritis 05/04/2018 Neoplasm of uncertain behavior of skin 8 Peripheral neuropathy 12/01/2017 Basal cell carcinoma of skin of face 09/16/2017 Overview (03/08/2023): Added automatically from request for surgery [id number] Overview: Added automatically from request for surgery [id number] Mixed hyperlipidemia 03/19/2017 Carpal tunnel syndrome of [...] Office Visit [facility] [address] [place] [address] Dandy Wasserman, DPMónica MRSA (methicillin resistant staph aureus) culture positive (Primary Dx); Right foot pain; Skin ulcer of toe of right foot with fat layer exposed (HCC); Idiopathic progressive polyneuropathy; Infection of toe; Charcot arthropathy of midfoot; Ulcer of left foot, limited to breakdown of skin (HCC); Closed nondisplaced fracture of second metatarsal bone of right foot, initial encounter 04/20/2025 Bamboo flowsheet [facility] [address] [place] [address] Dandy Wasserman, DPM 04/20/2025 Travel 04/19/2025 Travel 04/12/2025 Results Follow-Up [facility] [address] [place] [address] Dandy Wasserman, INDER 04/12/2025 Clinisync Result Encounter [facility] External Department Unsolicited Dandy Wasserman DPM 04/11/2025 Telephone [facility] [address] [place] [address] Dandy Wasserman, INDER 04/11/2025 Clinisync Result Encounter [facility] External Department Unsolicited Dandy Wasserman, INDER 04/06/2025 5:10 PM EDT Ancillary Procedure [facility] [address] [place] [address] 04/06/2025 4:30 PM EDT Office Visit [facility] [address] [place] [address] Dandy Wasserman DPM Right foot pain (Primary Dx); Skin ulcer of toe of right foot with fat layer exposed (HCC); Infection of toe; Idiopathic progressive polyneuropathy; Generalized edema 04/06/2025 [facility]amboo [facility] [address] [facility] [place] [address] Dandy Wasserman DPM 04/06/2025 Travel 03/14/2025 12:00 PM EDT Office Visit [facility] Gutier[facility] Neurology [address] [place] [address] Nash Block MD BUCK (obstructive sleep apnea) (Primary Dx); Claustrophobia ; Hypersomnia 03/14/2025 Bamboo flowsheet [facility]UR[facility]Y [address] [place] [address] Nash Block MD 03/14/2025 Travel 02/13/2025 1:00 PM EDT Office Visit [facility] Gutierrez Neurology [address] [place] [address] Trace Casas MD Charcot's joint, left ankle and foot (Primary Dx); Gait instability; Idiopathic progressive polyneuropathy; Intractable 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 ; Restless legs; Carpal tunnel syndrome, bilateral; BUCK (obstructive sleep apnea) 02/13/2025 Bamboo Basecampheet [facility] NEUROLOGY [address] [place] [address] Trace Casas MD 02/13/2025 Travel from Last [...] Description 05/17/2025 1:20 PM EDT Office Visit [facility] Gutierrez Neurology [address] [address] Trace Casas MD [address] [facility] [address], [place] [phone] 05/23/2025 4:00 PM EDT Office Visit TERRY Gutierrez [facility] Neurology [address] [facility] [address] [place] [address] Nash Block MD [address] [facility] [address] [place] [address] [id number] Procedures Procedure Name Priority Date/Time Associated Diagnosis [...] by: Hesham Mcarthur MD 04/12/25 Final result us Dandy Wasserman [facility] Final Result * (ABNORMAL) MHPT [...] DPM [facility] Final R esult [facility] MHPT * XR foot 1 or 2 [...] Final Result from Last 3 Months Insurance [facility] Care Teams Incubator Machine Operator Relationship Specialty Start Date End Date Back, MD Alcides [address] [place] [address] PCP - General Family Medicine 12/08/24
--- OUTSIDE RECORDS SUMMARY | 2025-05-03 12:59 | XMS_ITS | Encounter Summary ---
Author Organization [facility] Address [address] [place] [address] Care Team Providers Care Clinical Appeals Auditor Name Role Phone Alcides Adam MD Primary Care Provider [phone] Encounter Details Date Type Department Care Team (Late Contact Info) Description 04/20/2025 Bamboo flowsheet [facility] [address] [place] [address] Dandy Sánchez, DPM [address] [place] [address] Social History Tobacco Use Types Packs/Day Years [...] Office Visit [facility] Gut[facility]rez Neurology [address] [facility] [place] [address] Trace Casas MD [address] [facility] [address] [place] [address] 05/23/2025 4:00 PM EDT Office Visit [facility] [address] [facility] [address] [place] [address] Nash Block MD [address] [facility] [address] [place] [address] documented as of this encounter Visit Diagnoses Not on filedocumented in this encounter Care Teams Clinical Appeals Auditor Relationship Specialty Start Date End Date [place] [address] PCP - General Family Medicine 12/08/24 documented as of this encounter
--- OUTSIDE RECORDS SUMMARY | 2025-05-03 12:59 | XMS_ITS | Encounter Summary ---
Author Organization [facility] Address [address] [facility], [address] [place] [address] Care Team Providers Care Billing Control Clerk Name Role Phone Felipe Adam MD Primary Care Provider [phone] Reason for Referral * Imaging (Routine) - Closed Specialty Diagnoses / Procedures Referred By Contac t Referred To Contact Radiology Diagnoses Radiculopathy, thoracic region Procedures MRI THORACIC SPINE WO CONTRAST Deon Mercado MD [address] [facility], [address] [place] [address] Phone: tel: fax: Referral ID Status Reason Start Date Expiration Date Visits Re quested Visits Authorized [id number] Closed 08/18/2022 08/12/2023 1 1 Encounter Details Date Type Department Care Team (Latest Contact Info) Description 08/12/2022 Transcribe Orders [facility] [address] [place] [address] Deon Mercado MD [address] [place] [address] Radiculopathy, thoracic region (Primary Dx) Social History Tobacco Use Types [...] housing, medical care, and heating? Somewhat hard 05/20/2022 PHQ-2 Answer Date Recorded PHQ-9 Total Score 12 04/11/2022 Hunger Vital Sign Answer Date Recorded Within the past 12 months, y ou worried that your food would run out before you got the money to buy more. Never true 05/20/20 22 Within the past 12 months, t he food you bought just didn't last and you didn't have money to get more. Never true 05/20/2022 PRAPARE - Transportation Answer Date Re corded [...] Description 07/27/2025 11:00 AM EDT Office Visit [address] [phone] Felipe Adam MD [address] [place] [address] Return in about 3 months (around 07/19/2025). documented as of this encounter Results * MRI THORACIC SPINE WO CONTRAST (08/18/2022 3:40 PM EST) Anatomical Region Laterality Modality C-spine, T-spine, L-spine, Chest Magnetic Resonance 08/18/2022 4:42 PM EST Impressions 08/21/2022 9:49 AM EST Mild multilevel thoracic discogenic disease without significant spinal canal or foraminal stenosis at any level. No fracture, infection, or neoplastic change. Narrative 08/21/2022 9:49 AM EST EXAM: MRI THORACIC SPINE WO CONTRAST REASON FOR EXAM: Chronic back pain. TECHNIQUE: Multiplanar, multisequence imaging of the thoracic spine without IV contrast. COMPARISON: X-rays performed on 08/18/2022. FINDINGS: Mild multilevel discogenic disease and endplate spurring without significant spinal canal or foraminal stenosis at any level. Bone marrow signal is within normal limits. Small hemangioma in the T5 vertebral body seen. No fracture, infection, or neoplastic change. Allowing for motion constraints, no obvious cord signal abnormality. No paraspinal soft tissue edema. Procedure Note Fazal Muhammad MD - 08/21/2022 EXAM: MRI THORACIC SPINE WO CONTRAST REASON FOR EXAM: Chronic back pain. TECHNIQUE: Multiplanar, multisequence imaging of the thoracic spinewithout IV contrast. COMPARISON: X-rays performed on 08/18/2022. FINDINGS: Mild multilevel discogenic disease and endplate spurring without significant spinal canal or foraminal stenosis at any level. Bone marrowsignal is within normal limits. Small hemangioma in the T5 vertebral body seen.No fracture, infection, or neoplastic change. Allowing for motionconstraints, no obvious cord signal abnormality. No paraspinal soft tissue edema. IMPRESSION: Mild multilevel thoracic discogenic disease without significant spinalcanal or foraminal stenosis at any level. No fracture, infection, or neoplastic change. Deon Mercado MD IMG MRI ORDERABLES Final Result documented in this encounter Visit Diagnoses Diagnosis Radiculopathy, thoracic region- Primary Thoracic or lumbosacral neuritis or radiculitis, unspecified Radiculopathy, thoracic region Thoracic or lumbosacral neuritis or radiculitis, unspecified documented in this encounter Additional Health Concerns Infection Onset Date Last Indicated Resolved Time MRSA Comment:Blood and spine 08/201805/16/2016 04/04/2025 MDRO (multi-drug resistant o rganism) Comment:E. Coli urine 02/202305/02/2022 05/02/2022 documented as of this encounter Care Teams Billing Control Clerk Relationship Specialty Start Date End Date Felipe Adam MD [address] [place] [address] PCP - General Internal Medicine 11/14/11 documented as of this encounter
--- OUTSIDE RECORDS SUMMARY | 2025-05-03 12:59 | XMS_ITS | Encounter Summary ---
Author Organization [facility] Address [address] [facility], [address] [place] [address] Care Team Providers Care Director Of Human Resources Name Role Phone Felipe Adam MD Primary Care Provider [phone] Encounter Details Date Type Department Care Team ([facility] st Contact Info) Description 04/25/2025 Bruce Sullivan [facility] of [address] [address] Felipe Adam MD [address] [place] [address] Social History Tobacco Use Types Packs/Day Years Used Date Smoking Tobacco: Never Passive Smoke Exposure: Never Smokeless Tobacco: Never Alcohol Use Standard Drinks/Week Comments No 0 (1 standard drink = 0.6 oz pur e alcohol) [facility] Utilities Answer Date Recorded In the past 12 months has [employer], gas, oil, or water [employer] threatened to shut off services in your [...] place to sleep or slept in a usp (including now)? No 05/08/2024 Housing Stability Vital Sign Answer Rikki e Recorded In the last 12 months, was t here a time when you were not able to pay the mortgage or rent on time? No 11/15/2024 In the past 12 months, how m any times have you moved where you were living? 0 11/15/2024 At any time in the past 12 m [facility], were you homeless or living in a usp (including now)? No 11/15/2024 Food Insecurity Answer [...] Description 07/27/2025 11:00 AM EDT Office Visit [facility] [address] [place] [address] Felipe Adam MD [address] [place] [address] Return in about 3 months (around 07/19/2025). documented as of this encounter Visit Diagnoses Not on filedocumented in this encounter Additional Health Concerns Infection Onset Date Last Indicated Resolved Time MRSA Comment:Blood and spine 08/201805/16/2016 04/04/2025 MDRO (multi-drug resistant o rganism) Comment:E. Coli urine 02/202305/02/2022 05/02/2022 documented as of this encounter Care Teams Director Of Human Resources Relationship Specialty Start Date End Date Felipe Adam MD [address] [place] [address] PCP - General Internal Medicine 11/14/11 documented as of this encounter
--- OUTSIDE RECORDS SUMMARY | 2025-05-03 12:59 | XMS_ITS | Encounter Summary ---
Author Organization [facility] Address [address] [place] [address] Care Team Providers Care Collar Turner Operator Name Role Phone Alcides Adam MD Primary Care Provider [phone] Reason for Visit * Reason Comments Med Refill Encounter Details Date Type Department Care Team (Late st Contact Info) Description 07/20/2023 Refill [facility] [address] [address] Trace Casas MD [address] [facility] [address] [place] [phone] Idiopathic progressive polyneuropathy Social History Tobacco Use [...] Office Visit [facility]rez Neurology [address] [facility] [address] [place] [address] Trace Casas MD [address] [facility] [address], [place] [phone] 05/23/2025 4:00 PM EDT Office Visit TERRY Gutierrez [facility] Neurology [address] [facility] [address] [place] [address] Nash Block MD [address] [facility] [address] [place] [address] [phone] documented as of this encounter Visit Diagnoses Diagnosis Idiopathic progressive polyneuropathy documented in this encounter Care Teams Collar Turner Operator Relationship Specialty Start Date End Date Back, MD Alcides [address] [place] [address] PCP - General Family Medicine 12/08/24 documented as of this encounter
--- OUTSIDE RECORDS SUMMARY | 2025-05-03 12:59 | XMS_ITS | Encounter Summary ---
Author Organization [facility] Address [address] [facility] [place] [address] Care Team Providers Care Checker Name Role Phone Alcides Adam MD Primary Care Provider [phone] Encounter Details Date Type Department Care Team [...] Department Care Team (Late Contact Info) Description 05/17/2025 1:20 PM EDT Office Visit [facility] Gutierrez Neurology [address] [facility] [place] [address] Trace Casas MD [address] [facility] [address] [address] 05/23/2025 4:00 PM EDT [facility] [address] [facility] [place] [address] Nash Block MD [address] [place] [address] documented as of this encounter Visit Diagnoses Not on filedocumented in this encounter Care Teams Checker Relationship Specialty Start Date End Date Back, MD Alcides [address] [place] [address] PCP - General Family Medicine 12/08/24 documented as of this encounter
--- OUTSIDE RECORDS SUMMARY | 2025-05-03 12:59 | XMS_ITS | Encounter Summary ---
Author Organization [facility] Address [address] [facility] [place] [address] Care Team Providers Care Building Associate Name Role Phone Alcides Adam MD Primary Care Provider [phone] Encounter Details Date Type Department Care Team [...] Office Visit [facility]Y Gutierrez Neurology [address] [facility] [address] [place] [address] Trace Casas MD [address] [facility] [address] [address] 05/23/2025 4:00 PM EDT Office Visit [facility] Neurology [address] [facility] [address] [place] [address] Nash Block MD [address] [place] [address] documented as of this encounter Visit Diagnoses Not on filedocumented in this encounter Care Teams Building Associate Relationship Specialty Start Date End Date Back, MD Alcides [address] [place] [address] PCP - General Family Medicine 12/08/24 documented as of this encounter
--- OUTSIDE RECORDS SUMMARY | 2025-05-03 12:59 | XMS_ITS | Clinical Summary ---
Author Organization [facility] Address [address] [place] [address] Care Team Providers Care Syrup Maker Name Role Phone Felipe Adam MD Primary Care Provider [phone] Allergies Active Allergy Reactions Criticality Noted Date [...] Description 10/12/2025 10:30 AM EST Office Visit [facility] [address] [place] [address] Dimas Adair MD [address] [place] [address] Health Maintenance Due Date Last Done Comments [...] Screen Negative Negative 10/21/2017 9:47 AM EST [facility] Blood BLOOD SPECIMEN / Unknown 10/20/2017 5:25 PM EST 10/20/2017 10:58 PM EST Narrative [facility] - 10/21/2017 9:47 AM EST Test performed using [employer] Immunodiagnostic system. us Edu Parry MD LAB BLOOD ORDERABLES Lou l Result [facility] [address] [place] [address] * High Risk HPV with Genotype 16,18 (03/20/2017 12:00 AM EDT) HPV 16 Negative Negative 04/01/2017 2:01 PM EDT [facility] HPV 18 Negative Negative 04/01/2017 2:01 PM EDT [facility] HPV, Other HR Types Negative Negative 04/01/2017 2:01 PM EDT [facility] Pap, Liquid Based CERVIX UTERI STRUCTURE / Unknown 03/20/2017 03/31/2017 9:32 PM EDT Narrative [facility] - 04/01/2017 2:01 PM EDT Assay performed using [employer] Twin 4800 system utilizing Real-Time PCR to amplify target HPV DNA. This system specifically identifies HPV16 and HPV18 while concurrently detecting the other twelve high risk types (31,33,35,39,45,51,52,56,58,59,66,68). Shanice Richard DO BODY FLUIDS AND STO OLS ORDERABLES Final Result [facility] [address] [place] [address] * Thinprep Pap Smear (03/20/2017 12:00 AM [...] HPV DNA. This system specifically identifies HPV16 [id number] while concurrently detecting the other twelve high risk types(31,33,35,39,45,51,52,56,58,59,66,68). Completed by on 2017-04-02 Electronically Signed By Arielle NEFF (ASCP) , Horticultural Nursery Assistant (Case signed 03/30/2017) The Papanicolaou smear is a screening tool, and like any screen, has an inherent false negative rate. Interpretation of results should be made in the context of patient history and clinical findings. Shanice Leemary Jose Manuel DO PATHOLOGY/CYTOLOGY ORDERABLES Final Result [facility] from Last 3 Months or Most Recently Relevant to Health Maintenance Insurance [employer] H[employer]/CHOICE PLUS/DULCE/DULCE PLUS Care Teams Syrup Maker Relationship Specialty Start Date End Date Back, MD Felipe [address] [place] [address] PCP - General Internal Medicine 03/26/15
--- OUTSIDE RECORDS SUMMARY | 2025-05-03 12:59 | XMS_ITS | Encounter Summary ---
Author Organization [facility] Address [address] [facility] [place] [address] Care Team Providers Care Coiler Operator Name Role Phone Felipe Adam MD Primary Care Provider Reason for Visit * Reason Comments Medication Refill Encounter Details Date Type Department Care Team ([facility] Contact Info) Description 08/25/[address] [address] Felipe Adam MD [address] [place] [address] Medication Refill Social History Tobacco Use Types [...] Upcoming Encounters Date Type Department Care Team ([facility] Contact Info) Description 07/27/2025 11:00 AM EDT Office Visit [address] [address] Felipe Adam MD [address] [place] [address] Return in about 3 months (around 07/19/2025). documented as of this encounter Visit Diagnoses Diagnosis Idiopathic peripheral neuropathy Unspecified hereditary and idiopathic peripheral neuropathy documented in this encounter Additional Health Concerns [...] documented as of this encounter Care Teams Coiler Operator Relationship Specialty Start Date End Date Back, MD Felipe [address] [place] [address] PCP - General Internal Medicine 11/14/11 documented as of this encounter
--- OUTSIDE RECORDS SUMMARY | 2025-05-03 12:59 | XMS_ITS | Encounter Summary ---
Author Organization [facility] Address [address] [place] [address] Care Team Providers Care Director Business Integration Name Role Phone Felipe Adam MD Primary Care Provider [phone] Encounter Details Date Type Department Care Team (Late st Contact Info) Description 05/01/[address] [facility] Bariatrics [address] [place] [address] Hali Gallegos MA Social History Tobacco Use [...] Description 10/12/2025 10:30 AM EST Office Visit [facility] [address] [facility] [place] [address] Dimas Adair MD [facility] [address] [place] [address] documented as of this encounter Visit Diagnoses Not on filedocumented in this encounter Care Teams Director Business Integration Relationship Specialty Start Date End Date Back, MD Felipe [address] [place] [phone] PCP - General Internal Medicine 03/26/15 documented as of this encounter
--- OUTSIDE RECORDS SUMMARY | 2025-05-03 12:59 | XMS_ITS | Encounter Summary ---
Author Organization [facility] Address [address] [facility] [place] [address] Care Team Providers Care Parimutuel Clerk Name Role Phone Alcides Adam MD Primary Care Provider [phone] Encounter Details Date Type Department Care Team (Late Contact Info) Description 08/24/2023 Clinisync Result Encounter [facility] External Department Unsolicited Trace Casas MD [address] [place] [address] [phone] Social History Tobacco Use Types Packs/Day Years [...] Upcoming Encounters Date Type Department Care Team ([facility] Contact Info) Description 05/17/2025 1:20 PM EDT Office Visit [facility]Y [facility]rez Neurology [address] [facility] [address] [place] [address] Trace Casas MD [address] [place] [phone] 05/23/2025 4:00 PM EDT Office Visit [facility] [address] [place] [address] Nash Block MD [address] [facility] [address] [place] [address] documented as of this encounter Procedures [...] Micky Lauren Jr., MD 08/24/23 Final result Trace Casas MD [facility] Final Resul t documented in this encounter Visit Diagnoses Not on filedocumented in this encounter Care Teams Parimutuel Clerk Relationship Specialty Start Date End Date Back, MD Alcides [address] [place] [address] PCP - General Family Medicine 12/08/24 documented as of this encounter
--- OUTSIDE RECORDS SUMMARY | 2025-05-03 13:00 | XMS_ITS | Clinical Summary ---
Author Organization [facility] Address [address], [address] [place] [address] Care Team Providers Care Nurse Discharge Planner Name Role Phone Felipe Adam MD Primary Care Provider Allergies Active Allergy Reactions Criticality Noted Date Comments Topiramate 10/29/2023 Made her feel overly thirsty and caused bad smell and taste. Medications Cholecalciferol (VITAMIN D) 2000 UNITS CAPS capsuleIndications :Vitamin D deficiency Take 1 capsule by mouth daily. 30 capsule 12 09/11/20 14 Active b complex vitamins capsule Take 1 capsule by mouth daily Active sertraline (ZOLOFT) 100 MG tablet Take 2 tablets by mouth daily Currently decreasing this medication 07/30/20 20 Active pregabalin (LYRICA) 300 MG capsule Take 1 capsule by mouth 2 times daily. 02/21/20 22 Active Biotin 1000 MCG TABS Take 1 tablet by mouth daily 02/27/20 22 Active NURTEC [address] 1 TABLET ON OR UNDER THE TONGUE EVERY OTHER DAY 01/03/20 22 Active baclofen (LIORESAL) 10 MG tablet Take 1 tablet by mouth nightly 04/19/20 22 Active montelukast (SINGULAIR) 10 MG tabletIndications: Seasonal allergies TAKE 1 TABLET NIGHTLY 90 tablet 3 09/22/20 22 Active fluticasone (FLONASE) 50 MCG/ACT nasal sprayIndications:S easonal allergies USE 2 SPRAYS IN EACH NOSTRIL DAILY 48 g 3 09/22/20 22 Active calcium carbonate (OSCAL) 500 MG TABS tablet Take 1 tablet by mouth 2 times daily Active cephALEXin (KEFLEX) 250 MG capsuleIndications :Frequent UTI Take 1 capsule by mouth daily as needed (post-coital UTI prophylaxis) 30 capsule 1 08/13/20 23 Active linaclotide (LINZESS) 145 MCG capsuleIndications :Drug-induced constipation Take 1 capsule by mouth daily 90 capsule 1 05/09/20 24 Active rOPINIRole (REQUIP) 1 MG tabletIndications: Restless legs Take 1 tablet by mouth 3 times daily 270 tablet 1 10/10/19 25 Active gemfibrozil (LOPID) 600 MG tabletIndications: Mixed hyperlipidemia TAKE 1 TABLET TWICE A DAY 30 MINUTES BEFORE BREAKFAST AND SUPPER 180 tablet 3 02/07/20 25 Active famotidine (PEPCID) 20 MG tabletIndications: Gastroesophageal reflux disease without esophagitis TAKE 1 TABLET TWICE A DAY 180 tablet 3 04/03/20 25 Active ALPRAZolam (XANAX) 0.25 MG tablet Take 1 tablet by mouth nightly. 03/14/20 25 Active nortriptyline (PAMELOR) 50 MG capsule Take 3 capsules by mouth nightly 02/14/20 25 026 Active clindamycin (CLEOCIN) 300 MG capsule 04/13/20 25 Active dapagliflozin (FARXIGA) 10 MG tabletIndications: Stage 3a chronic kidney disease (HCC),Pre-diabetes Take 1 tablet by mouth every morning 90 tablet 1 04/18/20 25 Active ciprofloxacin (CIPRO) 500 MG tablet Take 1 tablet by mouth 2 times daily for 10 days 20 tablet 04/04/20 25 025 clindamycin (CLEOCIN) 300 MG capsule Take 1 capsule by mouth 3 times daily for 10 days 30 capsule 04/04/20 25 025 fluconazole (DIFLUCAN) 150 MG tabletIndications: Vaginal yeast infection Take 1 tablet by mouth once for 1 dose 1 tablet 04/24/20 25 025 Active Problems Problem Noted Date Diagnosed Date Pre-diabetes 06/30/2022 Assessment & Plan (04/18/2025 9:56 AM EDT): Watch a diabetic diet. Exercise as tolerated. Start on Farxiga 10 mg daily. HgbA1C in 3 months. Orders: dapagliflozin (FARXIGA) 10 MG tablet; Take 1 tablet by mouth every morning Hemoglobin A1C; Future Basic Metabolic Panel; Future Anemia 2022 Thyroid nodule 05/27/2022 Restless legs 05/13/2021 Assessment & Plan (11/15/2024 3:08 PM EST): Controlled on Requip. No changes at this time. BUCK on CPAP 05/11/2020 Assessment & Plan (11/15/2024 3:08 PM EST): Undergoing the process of getting a new machine. Epidural abscess 08/20/2018 Septic arthritis 08/20/2018 Neoplasm of uncertain behavior of skin 8 Peripheral neuropathy 12/01/2017 Basal cell carcinoma of skin 09/29/2017 Overview (02/05/2018): Overview: Added automatically from request for surgery [id number] Basal cell carcinoma of skin of face 09/16/2017 Mixed hyperlipidemia 03/19/2017 Assessment & Plan (11/15/2024 3:08 PM EST): Labs were with her off medication. Start back on medication. Obtain labs approximately one week prior to the office appointment. Please fast for 12 hours prior to obtaining the labs. Water or black coffee (no cream or sugar) is allowed prior to the the labs. Orders: Comprehensive Metabolic Panel; Future Lipid Panel; Future Carpal tunnel syndrome on right 03/05/2017 Vitamin D deficiency 09/11/2014 Assessment & Plan (11/15/2024 3:08 PM EST): Controlled on Vitamin D deficiency. Would recommend taking K2 for bone health. GERD (gastroesophageal reflux disease) 4 Assessment & Plan (11/15/2024 3:08 PM EST): Controlled on Pepcid. No change in medication. 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 Avoid NSAIDS. Follows with Nephrology yearly (Dr. Forbes). Orders: Comprehensive Metabolic Panel; Future Depression with anxiety 06/24/2013 Assessment & Plan (11/15/2024 3:08 PM EST): Has been stable on Zoloft. No change in medication. Hyperglycemia 06/24/2013 Assessment & Plan (11/15/2024 3:08 PM EST): HgbA1C has been normal. Will repeat HgbA1C and Insulin level with next labs. Orders: Hemoglobin A1C; Future Insulin, Total; Future Chronic fatigue 07/20/2012 Fatigue 07/20/2012 Elevated C-reactive protein (CRP) MRSA (methicillin resistant Staphylococcus aureus) septicemia Discitis of thoracic region Infection of thoracic spine Resolved Problems Problem Noted Date Diagnosed Date Resolved Date Sepsis 08/15/2018 05/11/2020 Lactic acidosis 08/15/2018 05/11/2020 Mixed hypercholesterolemia a nd hypertriglyceridemia 06/24/2013 03/19/2017 Depression 07/20/2012 06/24/2013 Acute metabolic encephalopathy 05/11/2020 MRSA bacteremia 05/11/2020 Encounters Date Type Department Care Team Description 04/25/[address] [phone] Felipe Adam MD 04/24/[address] [phone] Felipe Adam MD Yeast Infection 04/18/2025 9:45 AM EDT Office Visit [address] [address] Felipe Adam MD Stage 3a chronic kidney disease (HCC) (Primary Dx); Pre-diabetes 04/17/2025 Results Follow-Up [facility] Internal Medicine [address] [place] [address] Felipe Adam MD 04/14/2025 9:44 AM EDT - 04/14/2025 11:59 PM EDT Hospital Encounter [facility] Laboratory [address] [place] [address] Hyperglycemia; Mixed hyperlipidemia; Chronic renal impairment, stage 3a (HCC) Discharge Disposition: Home or Self Care 04/14/[address] [phone] Felipe Adam MD 04/13/2025 10:00 AM EDT Office Visit [address] [address] Felipe Adam MD 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) (Primary Dx); Cellulitis of right toe; Skin ulcer of second toe of right foot with necrosis of muscle (HCC) 04/11/2025 11:03 AM EDT - 04/13/2025 11:59 PM EDT Hospital Encounter [facility] [address] [place] [address] Dandy Sánchez, DPM Pain in right foot Discharge Disposition: Home or Self Care 04/11/2025 Orders Only [facility] [address] [place] [address] Micky Lauren Jr., MD Ulcer of right foot, unspecified ulcer stage (HCC) (Primary Dx) 04/10/2025 Transcribe Orders [facility] [address] [place] [id number] Dandy Sánchez, DPM Pain in right foot (Primary Dx) 04/06/2025 Results Follow-Up [facility] Emergency Department [address] [place] [address] Jessica Burton RN 04/04/2025 9:07 PM EDT - 04/05/2025 12:14 AM EDT Emergency [facility] Emergency Department [address] [place] [address] Severo Goodwin MD Pressure injury of deep tissue of toe, unspecified laterality (Primary Dx) Discharge Disposition: Home or Self Care 04/04/2025 Travel 04/03/[address] [address] Jasmyne Hays, PHARMACY ASSISTANT - MANAGER IT TRAINING Medication Refill 02/15/2025 11:15 AM EDT - 02/17/2025 11:59 PM EDT Hospital Encounter [facility] [address] [place] [address] Felipe Adam MD Encounter for screening mammogram for malignant neoplasm of breast Discharge Disposition: Home or Self Care 02/04/2025 Refill [facility] [address] [place] [address] Jasmyne Hays, PHARMACY ASSISTANT - MANAGER IT TRAINING Medication Refill from Last 3 Months Immunizations Immunization Administration Dates Next Due TDaP, ADACEL (age 10y-64y), BOOSTRIX (age 10y+), IM, 0.5mL 09/08/2014 Family History Medical History Relation Name Comments Cancer Mother Madyson Forde lung Diabetes Mother Madyson Forde High Blood Pressure Mother Madyson Forde Relation Name Status Comments Mother Madyson Forde Social History Tobacco Use Types Packs/Day Years Used Date Smoking Tobacco: Never Passive Smoke Exposure: Never Smokeless Tobacco: Never Tobacco Cessation:Counseling Given: Not Answered Alcohol Use Standard Drinks/Week Comments No 0 (1 standard drink = 0.6 oz pur e alcohol) [facility] Utilities Answer Date Recorded In the past 12 months has e [employer], gas, oil, or water [employer] threatened to shut off services in your [...] place to sleep or slept in a fdc (including now)? No 05/08/2024 Housing Stability Vital Sign Answer Rikki e Recorded In the last 12 months, was t here a time when you were not able to pay the mortgage or rent on time? No 11/15/2024 In the past 12 months, how m any times have you moved where you were living? 0 11/15/2024 At any time in the past [address] [facility], were you homeless or living in a fdc (including now)? No 11/15/2024 Food Insecurity Answer [...] file Not on file Not on file Last Filed Vital Signs Vital Sign Reading Time Taken Comments Blood Pressure 126/70 04/18/2025 9:32 AM EDT Pulse 85 04/18/2025 9:32 AM EDT Temperature 37.2 C (99 F) 04/04/2025 9:15 PM EDT Respiratory Rate 16 04/04/2025 11:15 PM EDT Oxygen Saturation 95% 04/18/2025 9:32 AM EDT Inhaled Oxygen Concentration - - Weight 98 kg (216 lb) 04/18/2025 9:32 AM EDT Height 152.4 cm (5') 04/04/2025 9:24 PM EDT Body Mass Index 42.18 04/04/2025 9:24 PM EDT Plan of Treatment Upcoming Encounters Date Type Department Care Team (Late st Contact Info) Description 07/27/2025 11:00 AM EDT Office Visit [facility] [address] [phone] Felipe Adam MD [address] [place] [address] Return in about 3 months (around 07/19/2025). Health Maintenance Due Date Last Done Comments Hepatitis B vaccine (1 of 3 - 19+ 3-dose series) 1998 FIT/FOBT: Average risk 2024 Fecal-DNA (Cologuard): Average risk 2024 Sigmoidoscopy/CT colonography 2024 COVID-19 Vaccine ( - season) 2024 DTaP/Tdap/Td vaccine (2 - Td or Tdap) 09/08/2024 09/08/2014 Flu vaccine (#1) 05/05/2025 Depression Monitoring 11/15/2025 11/15/2024, 025 A1C test (Diabetic or Prediabetic) 04/14/2026 04/14/2025, 11/14/2024, 05/02/2024, Additional history exists GFR test (Diabetes, CKD 3-4, OR last GFR 15-59) 04/14/2026 04/14/2025, 04/11/2025, 11/14/2024, Additional history exists Breast cancer screen 02/15/2027 02/15/2025 Colonoscopy 12/10/2027 12/09/2017 Colorectal Cancer Screen 12/10/2027 Lipids 04/14/2030 04/14/2025, 11/05, 11/14/2024, Additional history exists Hepatitis C screen Completed 06/13/2014 Cervical cancer screen Discontinued Pap smear Discontinued 09/24/2021, 03/20/2017 HIV screen Completed 04/12/2022 Diabetes screen Discontinued 04/14/2025, 11/05, 05/02/2024, Additional history exists HPV (without or with Pap) Discontinued HPV vaccine Aged Out No longer eligi ble based on patient's age to complete this topic Hepatitis A vaccine Aged Out No longe r eligible based on patient's age to complete this topic Hib vaccine Aged Out No longer eligi ble based on patient's age to complete this topic Meningococcal (ACWY) vaccine Aged Out No longer eligible based on patient's age to complete this topic Meningococcal B vaccine Aged Out No l onger eligible based on patient's age to complete this topic Pneumococcal 0-49 years Vaccine Aged Out No longer eligible based on patient's age to complete this topic Polio vaccine Aged Out No longer elig ible based on patient's age to complete this topic Procedures Procedure Name Priority Date/Time Associated Diagnosis Comments COMPREHENSIVE METABOLIC PANEL Routine 04/14/2025 9:54 AM EDT Chronic renal impairment, stage 3a (HCC) Mixed hyperlipidemia HEMOGLOBIN A1C Routine 04/14/2025 9:54 AM EDT Hyperglycemia LIPID PANEL Routine 04/14/2025 9:54 AM EDT Mixed hyperlipidemia INSULIN, TOTAL Routine 04/14/2025 9:54 AM EDT Hyperglycemia MRI FOOT RIGHT W WO CONTRAST STAT 04/11/2025 12:45 PM EDT Pain in right foot BUN & CREATININE Routine 04/11/2025 11:16 AM EDT CULTURE, WOUND (WITH GRAM STAIN) Stat [employer] Label print 04/04/2025 10:51 PM EDT XR TOE RIGHT (MIN 2 VIEWS) STAT 04/04/2025 10:36 PM EDT XR TOE LEFT (MIN 2 VIEWS) STAT 04/04/2025 10:36 PM EDT C-REACTIVE PROTEIN STAT 04/04/2025 10:00 PM EDT SEDIMENTATION RATE STAT 04/04/2025 10:00 PM EDT BRAIN NATRIURETIC PEPTIDE STAT 04/04/2025 10:00 PM EDT CBC WITH AUTO DIFFERENTIAL STAT 04/04/2025 9:57 PM EDT [facility] DIGITAL SCREEN BILATERAL Routine 02/15/2025 11:51 AM EDT Encounter for screening mammogram for malignant neoplasm of breast HIV SCREEN Routine 04/12/2022 2:09 PM EDT Encounter for screening for HIV PAP SMEAR Routine 09/24/2021 HM COLONOSCOPY Routine 12/09/2017 HEPATITIS C ANTIBODY Routine 06/13/2014 8:54 AM EDT from Last 3 Months or Most Recently Relevant to Health Maintenance Results * Insulin, Total (04/14/2025 9:54 AM EDT) Insulin Comment FASTING 04/14/2025 9:54 AM EDT [facility] Insulin 25.0 mU/L 04/14/2025 9:54 AM EDT [facility] Insulin Reference Range: 04/14/2025 9:54 AM EDT [facility] Comment: Fastin.6-24.9 30 min: 20-112 60 min: 29-88 90 min: 26-84 120 min: 22-79 Blood BLOOD SPECIMEN / Unknown 04/14/2025 9:54 AM EDT 04/14/2025 9:55 AM EDT us Felipe Adam MD CHEMISTRY ORDERABLES Final Resul t [facility] [address] [place] [address], [facility] [phone] [facility] [address] [place] [address] * Hemoglobin A1C (04/14/2025 9:54 AM EDT) Pathologist [facility] Hemoglobin A1C 5.9 4.0 - 6.0 % 04/14/2025 9:54 AM EDT [facility] Estimated Avg Glucose 123 mg/dL 04/14/2025 9:54 AM EDT [facility] Comment: The ADA and AACC recommend providing the estimated average glucose result to permit better patient understanding of their HBA1c result. Blood BLOOD SPECIMEN / Unknown 04/14/2025 9:54 AM EDT 04/14/2025 9:55 AM EDT us Felipe Adam MD CHEMISTRY ORDERABLES Final Resul t [facility] [address] [place] [id number], [facility] [phone] [facility] [address] [place] [address] * (ABNORMAL) Lipid Panel (04/14/2025 9:54 AM EDT) [facility] Cholesterol, Total 158 0 - 199 mg/dL 04/14/2025 9:54 AM EDT [facility] Comment: Cholesterol Guidelines: <200 Desirable 200-240 Borderline >240 Undesirable HDL 31(L) >40 mg/dL 04/14/2025 9:54 AM EDT [facility] Comment: HDL Guidelines: <40 Undesirable 40-59 Borderline >59 Desirable LDL Cholesterol 59 0 - 100 mg/dL 04/14/2025 9:54 AM EDT [facility] Comment: LDL Guidelines: <100 Desirable 100-129 Near to/above Desirable 130-159 Borderline >159 Undesirable Direct (measured) LDL and calculated LDL are not interchangeable tests. Chol/HDL Ratio 5.1(H) <5.0 04/14/2025 9:54 AM EDT [facility] Triglycerides 341(H) <150 mg/dL 04/14/2025 9:54 AM EDT [facility] Comment: Triglyceride Guidelines: <150 Desirable 150-199 Borderline 200-499 High >499 Very high Based on AHA Guidelines for fasting triglyceride, July 2012. VLDL 68(H) 1 - 30 mg/dL 04/14/2025 9:54 AM EDT [facility] Blood BLOOD SPECIMEN / Unknown 04/14/2025 9:54 AM EDT 04/14/2025 9:55 AM EDT us Felipe Adam MD CHEMISTRY ORDERABLES Final Resul t [facility] [address] [place] [address], [facility] [phone] [facility] [address] [place] [address], [facility] [phone] * (ABNORMAL) Comprehensive Metabolic Panel (04/14/2025 9:54 AM EDT) Sodium 139 135 - 144 mmol/L 04/14/2025 9:54 AM T [facility] Potassium 4.1 3.7 - 5.3 mmol/L 04/14/2025 9:54 AM [facility] Chloride 99 98 - 107 mmol/L 04/14/2025 9:54 AM T [facility] CO2 26 20 - 31 mmol/L 04/14/2025 9:54 AM T [facility] Anion Gap 14 9 - 17 mmol/L 04/14/2025 9:54 AM T [facility] Glucose 114(H) 70 - 99 mg/dL 04/14/2025 9:54 AM [facility] BUN 18 6 - 20 mg/dL 04/14/2025 9:54 AM T [facility] Creatinine 1.4(H) 0.5 - 0.9 mg/dL 04/14/2025 9:54 AM T [facility] Est, Glom Filt Rate 47(L) >60 mL/min/1.7 3m2 04/14/2025 9:54 AM T [facility] Comment: These results are not intended for [...] following therapy that affects renal tubular secretion. Calcium 9.4 8.6 - 10.4 mg/dL 04/14/2025 9:54 AM EDT [facility] Total Protein 7.2 6.4 - 8.3 g/dL 04/14/2025 9:54 AM EDT [facility] Albumin 4.2 3.5 - 5.2 g/dL 04/14/2025 9:54 AM EDT [facility] Albumin/Globulin Ratio 1.4 1.0 - 2.5 04/14/2025 9:54 AM EDT [facility] Total Bilirubin 0.5 0.3 - 1.2 mg/dL 04/14/2025 9:54 AM EDT [facility] Alkaline Phosphatase 109(H) 35 - 104 U/L 04/14/2025 9:54 AM EDT [facility] ALT 23 5 - 33 U/L 04/14/2025 9:54 AM EDT [facility] AST 22 <32 U/L 04/14/2025 9:54 AM EDT [facility] Blood BLOOD SPECIMEN / Unknown 04/14/2025 9:54 AM EDT 04/14/2025 9:55 AM EDT us Felipe Adam MD CHEMISTRY ORDERABLES Final Resul t [facility] [address] [place] [address], [facility] [phone] * MRI FOOT RIGHT W WO CONTRAST (04/11/2025 12:45 PM EDT) Anatomical Region Laterality Modality Hip, Thigh, Knee Magnetic Resona nce 04/11/2025 12:4 5 PM EDT Impressions 04/12/2025 6:48 AM EDT 1. There is an ulcer along the [...] again superimposed infection be difficult to include. Narrative 04/12/2025 6:48 AM EDT EXAM: MRI FOOT RIGHT W [...] atrophic change likely related to chronic neuropathy. Procedure Note Hesham Mcarthur MD - 04/12/2025 EXAM: MRI FOOT RIGHT [...] although again superimposed infectionbe difficult to include. Dandy Sánchez DP IM MRI ORDERABLES [facility] Result * (ABNORMAL) BUN & Creatinine (04/11/2025 11:16 AM EDT) BUN 15 6 - 20 mg/dL 04/11/2025 11:16 AM EDT [facility] Creatinine 1.3(H) 0.5 - 0.9 mg/dL 04/11/2025 11:16 AM EDT [facility] Est, Glom Filt Rate 52(L) >60 mL/min/1.7 3m2 04/11/2025 11:16 AM EDT [facility] Comment: These results are not intended for [...] 6 AM EDT 04/11/2025 11:17 AM EDT Dandy Sánchez DPMónica CHEMISTRY ORDERABLES Fi nal Result [facility] [address] [place] [address], [facility] [phone] * (ABNORMAL) Culture, Wound (with Gram Stain) (04/04/2025 10:51 PM EDT) Specimen Description .TOE 04/04/2025 10:51 PM EDT [facility] NO NEUTROPHILS SEEN 04/04/2025 10:51 PM EDT [facility] Direct Exam NO ORGANISMS SEEN 2024 10:51 PM EDT [facility] Culture METHICILLIN RESISTANT STAPHYLOCOCCUS AUREUS LIGHT GROWTH(A) 04/04/2025 10:51 PM EDT [facility] Culture NORMAL SKIN JOSE 025 10:51 PM EDT [facility] SPECIMEN FROM WOUND / Unknown 04/04/2025 10:51 PM EDT 04/04/2025 10:53 PM EDT Narrative Organism Antibiotic Method Susceptibility Methicillin-Resistant Staphylococcus aureus penicillin BACTERIAL SUSCEPTIBILITY PANEL SONIA >=0.5: Resistant Methicillin-Resistant Staphylococcus aureus clindamycin BACTERIAL SUSCEPTIBILITY PANEL SONIA <=0.25: Sensitive Methicillin-Resistant Staphylococcus aureus erythromycin BACTERIAL SUSCEPTIBILITY PANEL SONIA >=8: Resistant Methicillin-Resistant Staphylococcus aureus gentamicin BACTERIAL SUSCEPTIBILITY PANEL SONIA <=0.5: Sensitive Comment:Gentamicin i s used only in combination with other active agents that test susceptible. Methicillin-Resistant Staphylococcus aureus Induced Clind Resist BACTERIAL SUSCEPTIBILITY PANEL SONIA NEGATIVE: Sensitive Methicillin-Resistant Staphylococcus aureus levofloxacin BACTERIAL SUSCEPTIBILITY PANEL SONIA 4: Intermediate Methicillin-Resistant Staphylococcus aureus oxacillin BACTERIAL SUSCEPTIBILITY PANEL SONIA >=4: Resistant Methicillin-Resistant Staphylococcus aureus tetracycline BACTERIAL SUSCEPTIBILITY PANEL SONIA <=1: Sensitive Methicillin-Resistant Staphylococcus aureus trimethoprim-sulfame thoxazole BACTERIAL SUSCEPTIBILITY PANEL SONIA <=10: Sensitive Methicillin-Resistant Staphylococcus aureus vancomycin BACTERIAL SUSCEPTIBILITY PANEL SONIA 1: Sensitive Severo Goodwin MD MICROBIOLOGY - GENERAL ORDERABL ES Final Result [facility] [address] [place] [address], [facility] [phone] [facility] [address] [place], [place] [address] [phone] * XR TOE RIGHT (MIN 2 VIEWS) (04/04/2025 10:36 PM EDT) Anatomical Region Laterality Modality Ankle, Foot Computed Radiogr aphy 04/04/2025 10:3 6 PM EDT Impressions 04/04/2025 11:32 PM EDT No acute osseous injury. Soft tissue swelling of the left great toe on the right second toe without radiographic evidence of osteomyelitis. Postsurgical changes partially imaged on the left. Narrative 04/04/2025 11:32 PM EDT EXAM: XR TOE LEFT (MIN 2 VIEWS), XR TOE RIGHT (MIN 2 VIEWS) HISTORY: ulcer COMPARISON: None. TECHNIQUE: 3 views of the left great toe and 3 views of the right second toe. FINDINGS: Left great toe: There is no fracture or dislocation. There is mild to moderate soft tissue swelling diffusely. There is no evidence of periostitis or cortical bone destruction to suggest acute osteomyelitis. There is a metallic density projecting over the medial soft tissues of the great toe at the level of the proximal phalanx. Partially imaged is postsurgical change with a partially threaded screw transfixing the first tarsometatarsal joint and 2 partially threaded screws are imaged on the lateral view in indeterminate location. 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 There is a wavy curved linear metallic density projecting along the plantar aspect of the first metatarsal on the lateral view. It is uncertain where this is located on the AP view as it is not included. Right second toe: There is moderate soft tissue swelling. There is no evidence of periostitis or cortical bone destruction to suggest acute osteomyelitis. There is no fracture or dislocation. There are no lytic or blastic bony lesions. There is normal mineralization. Procedure Note Edu Hannah MD - 04/04/2025 EXAM: XR TOE LEFT (MIN 2 VIEWS), XR TOE RIGHT (MIN 2 VIEWS) HISTORY: ulcer COMPARISON: None. TECHNIQUE: 3 views of the left great toe and 3 views of the right secondtoe. FINDINGS: Left great toe: There is no fracture or dislocation. There is mild tomoderate soft tissue swelling diffusely. There is no evidence of periostitis orcortical bone destruction to suggest acute osteomyelitis. There is a metallicdensity projecting over the medial soft tissues of the great toe at the level ofthe proximal phalanx. 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 It is uncertain where this islocated on the AP view as it is not included. Right second toe: There is moderate soft tissue swelling. There is noevidence of periostitis or cortical bone destruction to suggest acuteosteomyelitis. There is no fracture or dislocation. There are no lytic or blastic bony lesions. There is normal mineralization. IMPRESSION: No acute osseous injury. Soft tissue swelling of the left great toe on the right second toe without radiographic evidence of osteomyelitis.Postsurgical changes partially imaged on the left. Severo Goodwin MD IMG DIAGNOSTIC IMAGING ORDERABL ES Final Result * XR TOE LEFT (MIN 2 VIEWS) (04/04/2025 10:36 PM EDT) Anatomical Region Laterality Modality Ankle, Foot Computed Radiogr aphy 04/04/2025 10:3 6 PM EDT Impressions 04/04/2025 11:32 PM EDT No acute osseous injury. Soft tissue swelling of the left great toe on the right second toe without radiographic evidence of osteomyelitis. Postsurgical changes partially imaged on the left. Narrative 04/04/2025 11:32 PM EDT EXAM: XR TOE LEFT (MIN 2 VIEWS), XR TOE RIGHT (MIN 2 VIEWS) HISTORY: ulcer COMPARISON: None. TECHNIQUE: 3 views of the left great toe and 3 views of the right second toe. FINDINGS: Left great toe: There is no fracture or dislocation. There is mild to moderate soft tissue swelling diffusely. There is no evidence of periostitis or cortical bone destruction to suggest acute osteomyelitis. There is a metallic density projecting over the medial soft tissues of the great toe at the level of the proximal phalanx. Partially imaged is postsurgical change with a partially threaded screw transfixing the first tarsometatarsal joint and 2 partially threaded screws are imaged on the lateral view in indeterminate location. 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 There is a wavy curved linear metallic density projecting along the plantar aspect of the first metatarsal on the lateral view. It is uncertain where this is located on the AP view as it is not included. Right second toe: There is moderate soft tissue swelling. There is no evidence of periostitis or cortical bone destruction to suggest acute osteomyelitis. There is no fracture or dislocation. There are no lytic or blastic bony lesions. There is normal mineralization. Procedure Note Edu Hannah MD - 04/04/2025 EXAM: XR TOE LEFT (MIN 2 VIEWS), XR TOE RIGHT (MIN 2 VIEWS) HISTORY: ulcer COMPARISON: None. TECHNIQUE: 3 views of the left great toe and 3 views of the right secondtoe. FINDINGS: Left great toe: There is no fracture or dislocation. There is mild tomoderate soft tissue swelling diffusely. There is no evidence of periostitis orcortical bone destruction to suggest acute osteomyelitis. There is a metallicdensity projecting over the medial soft tissues of the great toe at the level ofthe proximal phalanx. 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 It is uncertain where this islocated on the AP view as it is not included. Right second toe: There is moderate soft tissue swelling. There is noevidence of periostitis or cortical bone destruction to suggest acuteosteomyelitis. There is no fracture or dislocation. There are no lytic or blastic bony lesions. There is normal mineralization. IMPRESSION: No acute osseous injury. Soft tissue swelling of the left great toe on the right second toe without radiographic evidence of osteomyelitis.Postsurgical changes partially imaged on the left. us Severo Goodwin MD IMG DIAGNOSTIC IMAGING ORDERABL ES Final Result * (ABNORMAL) Sedimentation Rate (04/04/2025 10:00 PM EDT) Sed Rate, Automated 32(H) 0 - 20 mm/Hr 04/04/2025 10:00 PM EDT [facility] Blood BLOOD SPECIMEN / Unknown 04/04/2025 10:00 PM EDT 04/04/2025 10:02 PM EDT us Severo Goodwin MD HEMATOLOGY ORDERABLES Final Res ult Performing Organization Address City/[facility]/ZIP Co de Phone Number [facility] [address] [facility]. [address] [phone] * (ABNORMAL) C-Reactive Protein (04/04/2025 10:00 PM EDT) [facility] CRP 46.7(H) 0.0 - 5.0 mg/L 04/04/2025 10:00 PM EDT [facility] BLOOD SPECIMEN / Unknown 04/04/2025 10:00 PM EDT 04/04/2025 10:02 PM EDT us Severo Goodwin MD CHEMISTRY ORDERABLES Final Resu lt Performing Organization Address [facility]/ZIP Co de Phone Number [facility] [address] [facility]. [address] [phone] * Brain Natriuretic Peptide (04/04/2025 10:00 PM EDT) NT Pro-BNP 262 <300 pg/mL 04/04/2025 10:00 PM EDT [facility] Comment: An age-independent cutoff point of 300 pg/ml has a 98% negative predictive value excluding acute heart failure. Blood BLOOD SPECIMEN / Unknown 04/04/2025 10:00 PM EDT 04/04/2025 10:02 PM EDT Severo Goodwin MD CHEMISTRY ORDERABLES Final Resu lt [facility] [address] [place] [address], [facility] [phone] * (ABNORMAL) CBC with Auto Differential (04/04/2025 9:57 PM EDT) WBC 6.1 3.5 - 11.0 k/uL 04/04/2025 9:57 PM EDT [facility] RBC 3.56(L) 4.00 - 5.20 m/uL 04/04/2025 9:57 PM EDT [facility] Hemoglobin 9.6(L) 12.0 - 16.0 g/dL 04/04/2025 9:57 PM EDT [facility] Hematocrit 30.0(L) 36.0 - 46.0 % 04/04/2025 9:57 PM EDT [facility] MCV 84.3 80.0 - 100.0 fL 04/04/2025 9:57 PM EDT [facility] MCH 27.0 26.0 - 34.0 pg 04/04/2025 9:57 PM EDT [facility] MCHC 32.0 31.0 - 37.0 g/dL 04/04/2025 9:57 PM EDT [facility] RDW 18.4(H) 12.1 - 15.2 % 04/04/2025 9:57 PM EDT [facility] Platelets 186 140 - 450 k/uL 04/04/2025 9:57 PM EDT [facility] MPV 11.7 6.0 - 12.0 fL 04/04/2025 9:57 PM EDT [facility] Neutrophils % 68 47 - 75 % 04/04/2025 9:57 PM EDT [facility] Lymphocytes % 23 15 - 40 % 04/04/2025 9:57 PM EDT [facility] Monocytes % 6 4 - 8 % 04/04/2025 9:57 PM EDT [facility] Eosinophils % 1 0 - 5 % 04/04/2025 9:57 PM EDT [facility] Basophils % 0 0 - 2 % 04/04/2025 9:57 PM EDT [facility] Immature Granulocytes % 2 0 - 5 % 04/04/2025 9:57 PM EDT [facility] Neutrophils Absolute 4.09 2.5 - 7.0 k/uL 04/04/2025 9:57 PM EDT [facility] Lymphocytes Absolute 1.39 1.00 - 4.80 k/uL 04/04/2025 9:57 PM EDT [facility] Monocytes Absolute 0.37 0.00 - 1.00 k/uL 04/04/2025 9:57 PM EDT [facility] Eosinophils Absolute 0.07 0.00 - 0.40 k/uL 04/04/2025 9:57 PM EDT [facility] Basophils Absolute 0.02 0.00 - 0.20 k/uL 04/04/2025 9:57 PM EDT [facility] Immature Granulocytes Absolute 0.13 0.00 - 0.30 k/uL 04/04/2025 9:57 PM EDT [facility] Blood BLOOD SPECIMEN / Unknown 04/04/2025 9:57 PM EDT 04/04/2025 10:02 PM EDT us Severo Goodwin MD HEMATOLOGY ORDERABLES Final Res ult [facility] [address] [place] [address], [facility] [phone] * NITA BRIAN DIGITAL SCREEN BILATERAL (02/15/2025 11:51 AM EDT) Anatomical Region Laterality Modality Breast Bilateral Mammography 02/15/2025 11:5 1 AM EDT Impressions 02/28/2025 12:55 PM EDT OVERALL ASSESSMENT: BIRADS: 1 Negative, no evidence of malignancy. A letter of notification will be mailed to the patient. Performing Facility: [facility] [address] [place] [id number] Narrative 02/28/2025 12:55 PM EDT HISTORY: Screening. TECHNIQUE: Bilateral digital screening mammogram with CAD. Digital breast tomosynthesis imaging. FINDINGS: Two views of each breast were obtained. There are scattered areas of fibroglandular density. BREAST DENSITY CODE: S: Scattered No change from no change from prior [facility] 09/06/2021, films were not received. Suspicious calcifications: None. Suspicious mass: None. (If skin markers were applied, circles represent skin lesions and linear markers represent scars.) Felipe Adam MD IMG MAMMOGRAPHY ORDERABLES Final Result * HIV Screen (04/12/2022 2:09 PM EDT) HIV Ag/Ab NONREACTIVE NONREACTIVE 04/12/2022 2:09 PM EDT [facility] Comment: No laboratory evidence of HIV infection. If acute HIV infection is suspected, consider testing for HIV-1 RNA. BLOOD SPECIMEN / Unknown 04/12/2022 2:09 PM EDT 04/12/2022 2:11 PM EDT Result [facility] Felipe Adam MD IMMUNOLOGY ORDERABLES Final Resu lt [facility] [address] [place] [address], [facility] [phone] [place] [address] [place] [address], [facility] [phone] * HM PAP SMEAR (09/24/2021) Historical Provider HEALTH MAINTENANCE Final Result * HM COLONOSCOPY (12/09/2017) Historical Provider HEALTH MAINTENANCE Final Result * Hepatitis C Antibody (06/13/2014 8:54 AM EDT) Hepatitis C Ab NONREACTIVE NR 4 9:44 PM EDT [facility] Comment: The hepatitis C procedure used in our laboratory is a Chemiluminescent test specific for three recombinant HCV antigens. A negative anti-HCV result indicates that the antibodies to hepatitis C virus are not present at this time. Individuals with reactive anti-HCV should be considered infected and infectious until proven otherwise. Confirmation of all equivocal or reactive results is recommended by ordering HCV RNA by PCR. Performed at [address] [address] 06/13/2014 8:54 AM EDT 06/13/2014 8:55 AM EDT us Doug Klein MD IMMUNOLOGY ORDERABLES Final R esult [facility] [address] [facility] 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 02/202305/02/2022 05/02/2022 Insurance Advance Directives * Full Code (Latest Code Status on File) Date Activated Date Inactivated Comments 08/15/2018 4:17 PM 08/25/2018 8:55 PM * Full Code Date Activated Date Inactivated Comments 03/19/2017 1:37 PM 03/19/2017 4:32 PM * Full Code Date Activated Date Inactivated Comments 03/19/2017 10:57 AM 03/19/2017 1:37 PM * Full Code Date Activated Date Inactivated Comments 03/05/2017 12:56 PM 03/05/2017 3:55 PM * Full Code Date Activated Date Inactivated Comments 03/05/2017 10:05 AM 03/05/2017 12:56 PM Care Teams Nurse Discharge Planner Relationship Specialty Start Date End Date Felipe Adam MD [address] [place] [id number] PCP - General Internal Medicine 11/14/11
--- OUTSIDE RECORDS SUMMARY | 2025-05-03 13:00 | XMS_ITS | Encounter Summary ---
Author Organization [facility] Address [address], [address] [place] [address] Care Team Providers Care Insurance And Benefits Clerk Name Role Phone Felipe Adam MD Primary Care Provider [phone] Encounter Details Date Type Department Care Team (Late st Contact Info) Description 06/20/2022 Transcribe Orders [facility] [address] [place], [place] [phone] Dandy Sánchez, DPMónica [address] [facility] [facility], [address] [place] [phone] Pain of foot, unspecified laterality (Primary Dx); Closed nondisplaced fracture of second metatarsal bone of left foot, initial encounter Social History Tobacco Use [...] Description 07/27/2025 11:00 AM EDT Office Visit [address] [phone] Felipe Adam MD [address] [place] [phone] Return in about 3 months (around 07/19/2025). 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
--- OUTSIDE RECORDS SUMMARY | 2025-05-03 13:00 | XMS_ITS | Encounter Summary ---
Author Organization [facility] Address [address], [address] [place] [address] Care Team Providers Care Relief Cook Name Role Phone Felipe Adam MD Primary Care Provider [phone] Encounter Details Date Type Department Care Team ([facility] st Contact Info) Description 04/17/2025 Results Follow-Up [facility] Internal Medicine [address] [place] [address] Felipe Adam MD [address] [place], [place] [phone] Social History Tobacco Use Types Packs/Day Years Used Date Smoking Tobacco: Never Passive Smoke Exposure: Never Smokeless Tobacco: Never Alcohol Use Standard Drinks/Week Comments No 0 (1 standard drink = 0.6 oz pur e alcohol) [facility] Utilities Answer Date Recorded In the past 12 months has [email or web address], gas, oil, or water [employer] threatened to shut off services in your [...] place to sleep or slept in a assisted (including now)? No 05/08/2024 Housing Stability Vital Sign Answer Rikki e Recorded In the last 12 months, was t here a time when you were not able to pay the mortgage or rent on time? No 11/15/2024 In the past 12 months, how m any times have you moved where you were living? 0 11/15/2024 At any time in the past 12 m [facility], were you homeless or living in a assisted (including now)? No 11/15/2024 Food Insecurity Answer [...] Description 07/27/2025 11:00 AM EDT Office Visit [facility] [address] [place] [address] Felipe Adam MD [address] [place] [address] Return in about 3 months (around 07/19/2025). 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
--- OUTSIDE RECORDS SUMMARY | 2025-05-03 13:00 | XMS_ITS | Encounter Summary ---
Author Organization [facility] Address [address], [address] [place] [address] Care Team Providers Care Jigger Artisan Name Role Phone Felipe Adam MD Primary Care Provider [phone] Encounter Details Date Type Department Care Team ([facility] st Contact Info) Description 04/14/2025 [facility] [address] [phone] Felipe Adam MD [address] [place] [phone] Social History Tobacco Use Types Packs/Day Years Used Date Smoking Tobacco: Never Passive Smoke Exposure: Never Smokeless Tobacco: Never Alcohol Use Standard Drinks/Week Comments No 0 (1 standard drink = 0.6 oz pur e alcohol) [facility] Utilities Answer Date Recorded In the past 12 months has [employer], gas, oil, or water [employer] threatened to shut off services in your [...] place to sleep or slept in a fpc (including now)? No 05/08/2024 Housing Stability Vital Sign Answer Rikki e Recorded In the last 12 months, was t here a time when you were not able to pay the mortgage or rent on time? No 11/15/2024 In the past 12 months, how m any times have you moved where you were living? 0 11/15/2024 At any time in the past 12 m [facility], were you homeless or living in a fpc (including now)? No 11/15/2024 Food Insecurity Answer [...] Description 07/27/2025 11:00 AM EDT Office Visit [facility] [address] [place] [address] Felipe Adam MD [address] [place] [phone] Return in about 3 months (around 07/19/2025). 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
--- OUTSIDE RECORDS SUMMARY | 2025-05-03 13:00 | XMS_ITS | Patient Health Record ---
Author Organization [facility] in [place] Address [address] [place] [address] Care Team Providers Care Hotel General Manager Name Role Phone None, Unknown or Primary Care Provider Unavailab Frances Plascencia [phone] Allergies Allergen (clinical drug ingredient) Drug/Non Drug Allergy documented on EMR Reaction Allergy Type Onset Date Status ChloraPrep One Step Unknown Drug Allergy Active Results Component Value Reference Range Notes XR foot LT min 3V (Not yet r eviewed by provider) Interpretation: Performing Lab: Notes/Report: Source Facility: [place] [address] XRay Report Signed Patient: CELINA GASPAR MR#: [id number] : 1980 Acct:[id number] Age/Sex: 44 / F ADM Date: 07/27/24 Loc: RAD Attending Dr: Frances Chase D.P.M. Ordering Physician: Frances Chase D.P.M. Date of Service: 07/27/24 Procedure(s): XR foot LT min 3V Accession Number(s): [id number] cc: Frances Chase D.P.M.; Physician,Non-Staff [facility] [place] [address] Patient Name: CELINA GASPAR MRN: [id number] date: 1980 Sex: F Assigned Patient Location: RAD Current Patient Location: Accession/Order Number: [id number] Exam Date: 07/27/2024 10:48 Report Date: 07/31/2024 07:19 At the request of: FRANCES CHASE Procedure: XR foot LT min 3V PROCEDURE: XR foot LT min 3V HISTORY: LEFT FOOT PAIN COMPARISON: XR foot left 07/01/2024 FINDINGS: BONES:Stable Charcot joints with mechanical fusion via multiple screws. Stable lateral subluxation and complete loss of plantar arch. Stable separate small fracture fragments along anterior margin of the tibial plafond. SOFT TISSUES:Mild-moderate soft tissue swelling; stable to slightly improved. EFFUSION:None visible. OTHER: Negative. XR/XR foot LT min 3V IMPRESSION: 1. Stable surgical changes and advanced degenerative changes. Electronically authenticated by: ROSALES HINSON Date: 07/31/2024 07:19 Dictated By: Rosales Hinson M.D. Signed By: 07/31/24721 DD/ 8 TD/TT: Account Assistant: [place] [address] XRay Report Signed Patient: IAN GASPAR MR#: [id number] : 1980 Acct:[id number] Age/Sex: 44 / F ADM Date: 07/27/24 Loc: RAD Attending Dr: Frances Chase D.P.M. Ordering Physician: Frances Chase D.P.M. Date of Service: 07/27/24 Procedure(s): XR foot LT min 3V Accession Number(s): [id number] cc: Frances Chase D.P.M.; Physician,Non-Staff [facility] [place] [id number] Patient Name: CELINA GASPAR MRN: [id number] date: 1980 Sex: F Assigned Patient Location: RAD Current Patient Location: Accession/Order Numb er: [id number] Exam Date: 10:48 Report Date: 07/31/2024 07:19 At the request of: FRANCES CHASE Procedure: XR foot LT min 3V PROCEDURE: XR foot LT min 3V HISTORY: LEFT FOOT PAIN COMPARISON: XR foot left 07/01/2024 FINDINGS: BONES:Stable Charcot joints with mechanical fusion via multiple screws. Stable lateral subluxation and complete loss of plantar arch. Stable separate small fracture fragments a long anterior margin of the tibial plafond. SOFT TISSUES:Mild-mo derate soft tissue swelling; stable to slightly improved. EFFUSION:None visible. OTHER: Negative. X R/XR foot LT min 3V IMPRESSION: 1. Stable surgical c hanges and advanced degenerative changes. Electronically authe nticated by: ROSALES HINSON Date: 07/31/2024 07:19 Dictated By: Rosales Hinson M.D. Signed By: 07/31/24721 DD/ 8 TD/TT: Account Assistant: XR foot LT min 3V (Not yet r eviewed by provider) Interpretation: Performing Lab: Notes/Report: Source Facility: [place] [address] XRay Report Signed Patient: CELINA GASPAR MR#: [id number] : 1980 Acct:[id number] Age/Sex: 44 / F ADM Date: 11/18/24 Loc: EC Attending Dr: Frances Chase D.P.M. Ordering Physician: Frances Chase D.P.M. Date of Service: 11/18/24 Procedure(s): XR foot LT min 3V Accession Number(s): [id number] cc: Frances Chase D.P.M.; Physician,Non-Staff [facility] [place] [address] Patient Name: CELINA GASPAR MRN: [id number] date: 1980 Sex: F Assigned Patient Location: Current Patient Location: Accession/Order Number: [id number] Exam Date: 11/18/2024 10:55 Report Date: 11/18/2024 13:44 At the request of: FRANCES CHASE Procedure: XR foot LT min 3V PROCEDURE: XR foot LT min 3V HISTORY: LEFT FOOT PAIN COMPARISON: XR foot left 11/01/2024 FINDINGS: BONES:Mechanical fusion of the first, second, and third tarsal-metatarsal joints. Fusion of the talocalcaneal and talonavicular joints. No convincing hardware fracture or loosening. Advanced degenerative change of the midfoot and loss of plantar arch. SOFT TISSUES:Mild/moderate soft tissue swelling surrounding the foot. EFFUSION:None visible. OTHER: Negative. XR/XR foot LT min 3V IMPRESSION: 1. Stable surgical changes without evidence of hardware failure or change in alignment. Electronically authenticated by: ROSALES HINSON Date: 11/18/2024 13:44 Dictated By: Rosales Hinson M.D. Signed By: 11/18/24 1346 DD/ 43 TD/TT: Account Assistant: [place] [address] XRay Report Signed Patient: IAN GASPAR MR#: [id number] : 1980 Acct:[id number] Age/Sex: 44 / F ADM Date: 11/18/24 Loc: EC Attending Dr: Frances Chase D.P.M. Ordering Physician: Frances Chase D.P.M. Date of Service: 11/18/24 Procedure(s): XR foot LT min 3V Accession Number(s): [id number] cc: Frances Chase D.P.M.; Physician,Non-Staff [facility] [place] [address] Patient Name: CELINA GASPAR MRN: [id number] date: 1980 Sex: F Assigned Patient Location: Current Patient Location: Accession/Order Numb er: [id number] Exam Date: 11/18/2024 10:55 Report Date: 11/18/2024 13:44 At the request of: FRANCES CHASE Procedure: XR foot LT min 3V PROCEDURE: XR foot LT min 3V HISTORY: LEFT FOOT PAIN COMPARISON: XR foot left 11/01/2024 FINDINGS: BONES:Mechanical fus ion of the first, second, and third tarsal-metatarsal joints. Fusion of th e talocalcaneal and talonavicular joints. No convincing hardware fracture or loosening. Advanced degenerative change of the midfoot and loss of plantar arch. SOFT TISSUES:Mild/mo derate soft tissue swelling surrounding the foot. EFFUSION:None visible. OTHER: Negative. X R/XR foot LT min 3V IMPRESSION: 1. Stable surgical c hanges without evidence of hardware failure or change in alignment. Electronically authe nticated by: ROSALES HINSON Date: 11/18/2024 13:44 Dictated By: Rosales Hinson M.D. Signed By: 11/18/24 1346 DD/ 1344 TD/TT: Account Assistant: XR foot LT min 3V (Not yet r eviewed by provider) Interpretation: Performing Lab: Notes/Report: Source Facility: [place] [address] XRay Report Signed Patient: CELINA GASPAR MR#: [id number] : 1980 Acct:[id number] Age/Sex: 44 / F ADM Date: 11/01/24 Loc: RAD Attending Dr: Frances Chase D.P.M. Ordering Physician: Frances Chase D.P.M. Date of Service: 11/01/24 Procedure(s): XR foot LT min 3V Accession Number(s): [id number] cc: Frances Chase D.P.M.; Physician,Non-Staff [facility] [place] [address] Patient Name: CELINA GASPAR MRN: [id number] date: 1980 Sex: F Assigned Patient Location: [facility] Current Patient Location: Accession/Order Number: [id number] Exam Date: 11/01/2024 10:45 Report Date: 11/02/2024 13:09 At the request of: FRANCES CHASE Procedure: XR foot LT min 3V PROCEDURE: XR foot LT min 3V HISTORY: Left Foot Pain COMPARISON: XR foot left 09/20/2024 FINDINGS: BONES:Prior resection of the majority of the bones of the midfoot with mechanical fusion of the forefoot and hindfoot via multiple screws. Fusion of the posterior talocalcaneal joint with persistent osseous lucencies surrounding the posterior aspect of the calcaneal screw.. SOFT TISSUES:No visible soft tissue swelling. EFFUSION:None visible. OTHER: Negative. XR/XR foot LT min 3V IMPRESSION: 1. Stable surgical resection and fusion of the midfoot and hindfoot. No appreciable hardware failure or change in alignment. Electronically authenticated by: ROSALES HINSON Date: 11/02/2024 13:09 Dictated By: Rosales Hinson M.D. Signed By: 11/02/24 1312 DD/ 1309 TD/TT: Account Assistant: [place] [address] XRay Report Signed Patient: IAN GASPAR MR#: [id number] : 1980 Acct:[id number] Age/Sex: 44 / F ADM Date: 11/01/24 Loc: RAD Attending Dr: Frances Chase D.P.M. Ordering Physician: Frances Chase D.P.M. Date of Service: 11/01/24 Procedure(s): XR foot LT min 3V Accession Number(s): [id number] cc: Frances Chase D.P.M.; Physician,Non-Staff [facility] [place] [address] Patient Name: CELINA GASPAR MRN: [id number] date: 1980 Sex: F Assigned Patient Location: [facility] Current Patient Location: Accession/Order Numb er: [id number] Exam Date: 11/01/2024 10:45 Report Date: 11/02/2024 13:09 At the request of: FRANCES CHASE Procedure: XR foot LT min 3V PROCEDURE: XR foot LT min 3V HISTORY: Left Foot Pain COMPARISON: XR foot left 09/20/2024 FINDINGS: BONES:Prior resectio n of the majority of the bones of the midfoot with mechanical fusion of the forefoot and hindfoot via multiple screws. Fusion of the posterior taloca lcaneal joint with persistent osseous lucencies surrounding the posterior aspect of the calcaneal screw.. SOFT TISSUES:No visi ble soft tissue swelling. EFFUSION:None visible. OTHER: Negative. X R/XR foot LT min 3V IMPRESSION: 1. Stable surgical r esection and fusion of the midfoot and hindfoot. No appreciable hardware failure or change in alignment. Electronically authe nticated by: ROSALES HINSON Date: 11/02/2024 13:09 Dictated By: Rosales Hinson M.D. Signed By: 11/02/24 1312 DD/ 1309 TD/TT: Account Assistant: XR foot LT min 3V (Not yet r eviewed by provider) Interpretation: Performing Lab: Notes/Report: Source Facility: [place] [address] XRay Report Signed Patient: CELINA GASPAR MR#: [id number] : 1980 Acct:[id number] Age/Sex: 44 / F ADM Date: 09/20/24 Loc: RAD Attending Dr: Frances Chase D.P.M. Ordering Physician: Frances Chase D.P.M. Date of Service: 09/20/24 Procedure(s): XR foot LT min 3V Accession Number(s): [id number] cc: Frances Chase D.P.M.; Physician,Non-Staff [facility] [place] [address] Patient Name: CELINA GASPAR MRN: [id number] date: 1980 Sex: F Assigned Patient Location: [facility] Current Patient Location: Accession/Order Number: [id number] Exam Date: 09/20/2024 10:45 Report Date: 09/21/2024 06:56 At the request of: FRANCES CHASE Procedure: XR foot LT min 3V PROCEDURE: XR foot LT min 3V HISTORY: Left Foot Pain COMPARISON: XR foot left 08/23/2024 FINDINGS: BONES:Stable midfoot surgical changes and fusion of the midfoot and hindfoot. No appreciable hardware fracture or loosening or change in alignment. SOFT TISSUES:Mild soft tissue swelling. EFFUSION:None visible. OTHER: Negative. XR/XR foot LT min 3V IMPRESSION: 1. Stable chronic changes of Charcot joint and subsequent osseous resections and fusion. No appreciable hardware failure or change in alignment. Electronically authenticated by: ROSALES HINSON Date: 09/21/2024 06:56 Dictated By: Rosales Hinson M.D. Signed By: 09/21/2459 DD/ 5 TD/TT: Account Assistant: [place] [address] XRay Report Signed Patient: IAN GASPAR MR#: [id number] : 1980 Acct:[id number] Age/Sex: 44 / F ADM Date: 09/20/24 Loc: RAD Attending Dr: Frances Chase D.P.M. Ordering Physician: Frances Chase D.P.M. Date of Service: 09/20/24 Procedure(s): XR foot LT min 3V Accession Number(s): [id number] cc: Frances Chase D.P.M.; Physician,Non-Staff [facility] [place] [address] Patient Name: CELINA GASPAR MRN: [id number] date: 1980 Sex: F Assigned Patient Location: [facility] Current Patient Location: Accession/Order Numb er: [id number] Exam Date: 10:45 Report Date: 09/21/2024 06:56 At the request of: FRANCES CHASE Procedure: XR foot LT min 3V PROCEDURE: XR foot LT min 3V HISTORY: Left Foot Pain COMPARISON: XR foot left 08/23/2024 FINDINGS: BONES:Stable midfoot surgical changes and fusion of the midfoot and hindfoot. No appreciable hardw are fracture or loosening or change in alignment. SOFT TISSUES:Mild so ft tissue swelling. EFFUSION:None visible. OTHER: Negative. X R/XR foot LT min 3V IMPRESSION: 1. Stable chronic ch anges of Charcot joint and subsequent osseous resections and fusion. No appre ciable hardware failure or change in alignment. Electronically authe nticated by: ROSALES HINSON Date: 09/21/2024 06:56 Dictated By: Rosales Hinson M.D. Signed By: 09/21/2459 DD/ 5 TD/TT: Account Assistant: XR foot LT min 3V (Not yet r eviewed by provider) Interpretation: Performing Lab: Notes/Report: Source Facility: [place] [address] XRay Report Signed Patient: CELINA GASPAR MR#: [id number] : 1980 Acct:[id number] Age/Sex: 44 / F ADM Date: 08/23/24 Loc: RAD Attending Dr: Frances Chase D.P.M. Ordering Physician: Frances Chase D.P.M. Date of Service: 08/23/24 Procedure(s): XR foot LT min 3V Accession Number(s): [id number] cc: Frances Chase D.P.M.; Physician,Non-Staff [facility] [place] [address] Patient Name: CELINA GASPAR MRN: [id number] date: 1980 Sex: F Assigned Patient Location: [facility] Current Patient Location: Accession/Order Number: [id number] Exam Date: 08/23/2024 10:38 Report Date: 08/25/2024 06:14 At the request of: FRANCES CHASE Procedure: XR foot LT min 3V PROCEDURE: XR foot LT min 3V HISTORY: LEFT FOOT PAIN ; recent fall COMPARISON: XR foot left 07/27/2024 FINDINGS: BONES:Stable advanced degenerative changes the midfoot and surgical resection of several mid foot bones and mechanical fusion of the talocalcaneal and medial aspect of the midfoot. No appreciable hardware fracture loosening. No bone fracture dislocation. SOFT TISSUES:Mild soft tissue swelling. EFFUSION:None visible. OTHER: Negative. XR/XR foot LT min 3V IMPRESSION: 1. Grossly stable advanced degenerative changes consistent with Charcot joint. 2. Stable surgical changes without evidence of hardware failure or change in alignment. Electronically authenticated by: ROSALES HINSON Date: 08/25/2024 06:14 Dictated By: Rosales Hinson M.D. Signed By: 08/25/24616 DD/ 3 TD/TT: Account Assistant: [place] [address] XRay Report Signed Patient: IAN GASPAR MR#: [id number] : 1980 Acct:[id number] Age/Sex: 44 / F ADM Date: 08/23/24 Loc: RAD Attending Dr: Frances Chase D.P.M. Ordering Physician: Frances Chase D.P.M. Date of Service: 08/23/24 Procedure(s): XR foot LT min 3V Accession Number(s): [id number] cc: Frances Chase D.P.M.; Physician,Non-Staff [facility] [place] [id number] Patient Name: CELINA GASPAR MRN: [id number] date: 1980 Sex: F Assigned Patient Location: [facility] Current Patient Location: Accession/Order Numb er: [id number] Exam Date: 10:38 Report Date: 08/25/2024 06:14 At the request of: FRANCES CHASE Procedure: XR foot LT min 3V PROCEDURE: XR foot LT min 3V HISTORY: LEFT FOOT P AIN ; recent fall COMPARISON: XR foot left 07/27/2024 FINDINGS: BONES:Stable advance d degenerative changes the midfoot and surgical resection of several mid foot bones and mechanical fusion of the talocalcaneal and medial aspect of the midfoo t. No appreciable hardware fracture loosening. No bone fracture dislocation. SOFT TISSUES:Mild so ft tissue swelling. EFFUSION:None visible. OTHER: Negative. X R/XR foot LT min 3V IMPRESSION: 1. Grossly stable ad vanced degenerative changes consistent with Charcot joint. 2. Stable surgical c hanges without evidence of hardware failure or change in alignment. Electronically authe nticated by: ROSALES HINSON Date: 08/25/2024 06:14 Dictated By: Rosales Hinson M.D. Signed By: 08/25/24616 DD/ 3 TD/TT: Account Assistant: Reason For Referral Reason Referral to [facility] Diagnosis 1 Charcot's joint, lef t ankle and foot (M14.672) Referral Organization [facility] (PODIATRY) Referring Provider First Name Frances Referring Provider Last Name Rena Referring Provider Speciality Podiatry Referred Provider Specialty Podiatry Referral Priority Routine Medications Medication SIG (Take, Route, Frequency, Duration) Notes Start Date End Date Status rOPINIRole HCl Activ e Alendronate Sodium 70 MG 1 tablet 30 min utes before the first food, beverage or medicine of the day with plain water Orally weekly for 94 days 07/01/2024 Active Naltrexone Active Nurtec Active Lisdexamfetamine Dimesylate 50 MG Oral for 30 Days Active Lyrica Active Famotidine 20 MG TAKE 1 TABLET BY BLANCA TH 2 TIMES DAILY Oral for 30 Days Active Gemfibrozil Active Biotin Active Zoloft Active Calcium Active Vitamin B Complex Ac tive Baclofen Active Vitamin D Active Social History Tobacco Use: Social History Observation Description Date Details (start date - stop date) Never Smoker NA - NA Tobacco Use/Smoking Question Answer Notes Patient is a nonsmoker Problems Problem Type SNOMED Code ICD Code Onset Dates Problem Status W/U Status Risk Notes Problem 07244488 Type 2 diabetes mellitus with diabetic polyneuropathy (E11.42) Active confirmed Problem 17485468 Hereditary and idiopathic neuropathy, unspecified (G60.9) Active confirmed Problem 293026713 Charcot's joint, left ankle and foot (M14.672) Active confirmed High Problem 036360745 Primary osteoarthritis, 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) Active confirmed Problem 882938612 Other acquired deformities of left foot (M21.6X2) Active confirmed High Problem 266155092 Contracture, 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) Active confirmed Problem 458091616 Pain in left ankle and joints of left foot (M25.572) Active confirmed Problem 152944716679692 Pain in left mirza t (M79.672) Active confirmed Problem 89012003 Disruption of external operation (surgical) wound, not elsewhere classified, initial encounter (T81.31XA) Active confirmed Problem Polyneuropathy due to type 2 diabetes mellitus (137860906) Type 2 diabetes mellitus with diabetic polyneuropathy (E11.42) Active confirmed Problem Chronic ulcer of ankle (027849987) 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) Active confirmed Problem Non-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 with other specified severity (L97.428) Active confirmed Problem Skin ulcer associated with diabetes mellitus (624720826) Controlled type 2 diabetes mellitus with other skin ulcer, without long-term current use of insulin (E11.622) Active confirmed Vital Signs Heart Rate 88 /min 11/18/2024 Temperature 97.2 degrees Fahrenheit 11/18/2024 Oximetry 96 % 11/18/2024 Height 62 in 11/18/2024 Weight 200 lbs 11/18/2024 BMI 36.58 kg/m2 11/18/2024 Encounters Encounter Location Date Provider Diagnosis [facility] (PODIATRY) [address] [place] [address] [place] [address] 07/27/2024 Frances Chase Pseudarthrosis after fusion or arthrodesis M96.0 ; Charcot's joint, left ankle and foot M14.672 and Pain in left foot M79.672 [facility] (PODIATRY) [address] [place] [address] [place] [address] 08/23/2024 Frances Chase Pain in left foot M79.672 ; Charcot's joint, left ankle and foot M14.672 and 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 [facility] (PODIATRY) [address] [place] [address] [place] [id number] 09/20/2024 Frances Chase Pseudarthrosis after fusion or arthrodesis M96.0 ; Charcot's joint, left ankle and foot M14.672 ; Hereditary and idiopathic neuropathy, 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 and Pain in left foot M79.672 [facility] (PODIATRY) [address] [place] [address] [place] [address] 11/01/2024 Frances Chase Charcot's joint, lef t ankle and foot M14.672 ; Pseudarthrosis after fusion or arthrodesis M96.0 and Pain in left foot M79.672 [facility] ([facility]) [address] [place] [address] [place] [address] 11/18/2024 Frances Chase Pseudarthrosis after fusion or arthrodesis M96.0 ; Charcot's joint, left ankle and foot M14.672 and Pain in left foot M79.672 [facility] ([facility]) [address] [place] [address] [place] [address] 07/01/2024 Frances Chase [facility] ([facility]) [address] [place] [address] 08/04/2024 Frances Chase Assessments Encounter Date Diagnosis (ICD Code) Assessment Notes Treatment Notes Treatment Clinical Notes Section Notes 07/27/2024 Pseudarthrosis after fusion or arthrodesis (ICD-10 - M96.0) Patient status post hindfoot and midfoot fusion for midfoot Charcot on 02/14/2023. Her recovery has been complicated with wound which her skin is now healed and she has been ambulating in a cam boot. 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 Fortunately her hardware remains stable. Therefore I recommended noninvasive bone stimulator which was ordered today. She should remain in the cam boot or surgical shoe for the time being she should limit weightbearing and continue to use cane or crutch. She will follow-up in 4 weeks with weightbearing foot x-rays 07/27/2024 Charcot's joint, left ankle and foot (ICD-10 - M14.672) 09/20/2024 Pseudarthrosis after fusion or arthrodesis (ICD-10 [...] left ankle and foot (ICD-10 - M14.672) 08/23/2024 Pain in left foot (ICD-10 - M79.672) 08/23/2024 Charcot's joint, left ankle and foot (ICD-10 - M14.672) Patient presents for follow-up and has developed recurrent ulceration over her lateral foot however her midfoot remains stable but unfortunately remains nonunited. At last visit I did order a bone stimulator and are waiting back for approval. Her surgery was done back in February therefore 6 months ago and there is less than 1 cm of gap within the osteotomy. Fortunately the hardware does remain stable and I recommended continue partial protected weightbearing in a cam boot. She should have x-rays within 4 to 6 weeks after using the bone stimulator 11/01/2024 Charcot's joint, left ankle and foot [...] after fusion or arthrodesis (ICD-10 - M96.0) 11/18/2024 Pseudarthrosis after fusion or arthrodesis (ICD-10 [...] Pain in left foot (ICD-10 - M79.672) 11/01/2024 Pain in left foot (ICD-10 - M79.672) 08/23/2024 Non-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 with other specified severity (ICD-10 - L97.428) I recommended washing the area with soap and water and daily application of Medihoney with Allevyn. She is to monitor the area for signs of infection. She will follow-up in the wound center within the next 2 weeks 09/20/2024 Hereditary and idiopathic neuropathy, unspecified (ICD-10 - G60.9) 07/27/2024 Pain in left foot (ICD-10 - M79.672) 09/20/2024 Pain in left foot (ICD-10 - M79.672) Plan Of Treatment Pending Test Test Name Order Date XR Foot LT (3 views) * 07/27/2024 XR Foot LT (3 views) * 08/23/2024 XR Foot LT (3 views) * 09/20/2024 XR Foot LT (3 views) * 11/01/2024 XR Foot LT (3 views) * 11/18/2024 XR foot LT min 3V 07/30/2023 XR foot LT min 3V 07/31/2024 XR foot LT min 3V 08/25/2024 XR foot LT min 3V 09/21/2024 XR foot LT min 3V 11/02/2024 XR foot LT min 3V 11/18/2024 Insurance Providers Payer Name Payer Address Payer Phone Subscriber Number Group Number Insured Name Patient Relationship to Insured Coverage Start Date Coverage End Date [facility] [address] [address] [place], [place] [id number] [phone] [id number] Celina Gaspar Self - patient is the insured Medical (General) History Medical History History ICD Code Gout M10.9 MRSA (methicillin resistant Staphylococc us aureus) A49.02 Kidney disease, chronic, stage II (mild, EGFR 60+ ml/min) N18.2 Neuropathy G62.9 Spondylitis M46.90 Radiculopathy M54.10 Charcot''s joint of left ankle M14.672 Charcot''s joint of left foot M14.672 Surgical History Surgery Date(Month/Year) left midfoot osteotomy and charcot recon struction 02/15/2024 cholecystomy carpal tunnel bilateral hands back surgery hysterectomy Hospitalization History Reason Date(Month/Year) see above
--- OUTSIDE RECORDS SUMMARY | 2025-05-03 13:00 | XMS_ITS | Encounter Summary ---
Author Organization [facility] Address [address], [address] [place] [address] Care Team Providers Care Sample Steamer Name Role Phone Felipe Adam MD Primary Care Provider [phone] Reason for Visit * Reason Onset Date Comments Yeast Infection 04/24/2025 Encounter Details Date Type Department Care Team ([facility] st Contact Info) Description 04/24/[address] [facility] [address] [phone] Felipe dAam MD [address] [place] [address] Yeast Infection Social History Tobacco Use Types Packs/Day Years Used Date Smoking Tobacco: Never Passive Smoke Exposure: Never Smokeless Tobacco: Never Alcohol Use Standard Drinks/Week Comments No 0 (1 standard drink = 0.6 oz pur e alcohol) [facility] Utilities Answer Date Recorded In the past 12 months has gripNote, gas, oil, or water [employer] threatened to shut off services in your [...] place to sleep or slept in a penitentiary (including now)? No 05/08/2024 Housing Stability Vital Sign Answer Rikki e Recorded In the last 12 months, was t here a time when you were not able to pay the mortgage or rent on time? No 11/15/2024 In the past 12 months, how m any times have you moved where you were living? 0 11/15/2024 At any time in the past 12 m [facility], were you homeless or living in a penitentiary (including now)? No 11/15/2024 Food Insecurity Answer [...] Description 07/27/2025 11:00 AM EDT Office Visit [facility] [address] [place] [address] Felipe Adam MD [address] [place] [address] Return in about 3 months (around 07/19/2025). 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
== END 2025-05-03 12:52 | disposition home or self-care (01) ==
LOC: WC 12:52
PROVIDERS: PCP Internal Medicine; Visit Provider Podiatrist Foot & Ankle Surgery
DX: M86.171 Other acute osteomyelitis, right ankle and foot (principal)
CPT/HCPCS: 11043

== ENCOUNTER 2025-05-03 13:54 | Outpatient (OUT) | payer OTHER, SELFPAY ==
--- OUTSIDE RECORDS SUMMARY | 2025-04-20 12:45 | XMS_ITS | Encounter Summary ---
Author Organization [facility] Address [address] [place] [address] Care Team Providers Care Window Trimmer Apprentice Name Role Phone Alcides Adam MD Primary Care Provider [phone] Reason for Visit * Reason Comments Follow-up RT foot pain/Review MRI results Encounter Details Date Type Department Care Team (Late st Contact Info) Description 04/20/2025 12:45 PM EDT Office Visit [facility] [address] [place] [address] Dandy Sánchez, DPMónica [address] [place] [address] MRSA (methicillin resistant staph aureus) [...] Care Team (Late st Contact Info) Description 05/17/2025 1:20 PM EDT Office Visit [facility] [address] [facility] [address] [place] [address] Trace Casas MD [address] [place] [address] 05/23/2025 4:00 PM EDT Office Visit [facility] [address] [facility] [address] [place] [address] Nash Block MD [address] [place], [place] [phone] documented as of this encounter Visit Diagnoses [...] encounter documented in this encounter Care Teams Window Trimmer Apprentice Relationship Specialty Start Date End Date Back, MD Alcides [address] [place] [address] PCP - General Family Medicine 12/08/24 documented as of this encounter
--- OUTSIDE RECORDS SUMMARY | 2025-05-03 13:57 | XMS_ITS | Continuity of Care Document ---
Author Organization [facility] Address [address] [place] [address] Phone [phone] Care Team Providers Care Entry Level Lab Technician Name Role Phone Back, Alcides MELENDREZ Care Team Information International Guest Coordinator [phone] Problems Active Problems Provider Date Chronic kidney [...] Test Result H/L Range Note .Magnesium 05/10/2024 [place] .Magnesium 2.2 .Urine Protein/Creat. Random 05/10/2024 [place] .Urine Protein Random 9 .Urine Creatini ne Random 132.0 .Urine Prot/Cre at Ratio 0.07 .Renal Panel 05/10/2024 [place] .Albumin 4.2 .Calcium 9.2 .Carbon Dioxide 25 .Chloride 101 .Phosphorus 3.8 .Potassium 4.0 .Sodium 141 .BUN 19 .GFR 52 High 20 .Creatinine-LC 1.3 .Urinalysis-Rout ine 05/10/2024 [place] Ua Specific Cameron 1.020 Ua PH Test Strip 5.0 Ua Color yellow Ua Appearance clear Ua Protein trace Ua Glucose negative Ua Ketones negative Ua Bilirubin negative Ua Urobilinogen normal Ua Nitrite negative Ua Occult Blood negative .Renal Panel 05/17/2023 [place] .Albumin 4.1 .Calcium 9.5 .Carbon Dioxide 29 .Chloride 101 .Phosphorus 3.0 .Potassium 4.3 .Sodium 137 .BUN 17 .GFR >60 High 20 .Creatinine-LC 1.1 .Urine Protein/Creat. Random 05/17/2023 [place] .Urine Protein Random 10 .Urine Creatini ne Random 146.1 .Urine Prot/Cre at Ratio 0.07 .Ipth 05/17/2023 [place] .Ipth 47.1 .Vitamin D, 25 Hydroxy 05/17/2023 [place] .Vitamin D, 25 Hydroxy 53.1 .T-Sat-LC 05/20/2022 [place] .T-Sat-LC 0.18 .Tibc-LC 05/20/2022 [place] .Tibc-LC 263 .Ferritin 05/20/2022 [place] .Ferritin 164 .Iron 05/20/2022 [place] .Iron 48 .Transferrin-LC 05/20/2022 [place] .Transferrin-LC 280 .V Ipth-Vitamin D 05/20/2022 [place] .Ipth 39.91 .Vitamin D, 25 Hydroxy 35.3 .Magnesium 05/20/2022 [place], [place] [phone] .Magnesium 2.1 .Urine Protein/Creat. Random 05/20/2022 [place], [place] [phone] .Urine Protein Random 7 .Urine Creatini ne Random 97.1 .Urine Prot/Cre at Ratio 0.07 .Hemoglobin And Hematocrit 05/20/2022 [place], [place] [phone] .Hemoglobin Blood 11.1 .Hematocrit 33.3 .Renal Panel 05/20/2022 [place] .Albumin 4.4 .Calcium 10.0 .Carbon Dioxide 30 .Chloride 105 .Phosphorus 3.8 .Potassium 4.3 .Sodium 144 .BUN 18 .GFR 53 High 20 .GFR 53 High 20 .Creatinine-LC 1.13 .Renal Panel (Other Labs) 05/21/2021 [place], [place] [phone] .Albumin 4.2 .Calcium 9.2 .Carbon Dioxide 25 .Chloride 103 .Creatinine-LC 1.18 .Phosphorus 3.7 .Sodium 138 .BUN 19 .GFR 50 High 20 .Potassium 4.2 .Urine Protein/Creat. Random 05/21/2021 [place], [place] [phone] .Urine Protein Random 7 .Urine Creatini ne Random 115.7 .Magnesium 05/21/2021 [place] .Magnesium 2.2 .Urinalysis-Rout ine 05/21/2021 [place] Ua Specific Cameron 1.020 Ua PH Test Strip 5.0 Ua Color YELLOW Ua Appearance CLEAR Ua Protein TRACE Ua Glucose NEGATIVE Ua Ketones NEGATIVE Ua Urobilinogen NORMAL Ua Occult Blood NEGATIVE .Urine Protein/Creat. Random 05/25/2020 [place] .Urine Protein Random 8 .Urine Creatini ne Random 101.2 .Urine Prot/Cre at Ratio 0.08 .Ua 05/25/2020 [place], [place] [phone] Ua Appearance clear Ua Bilirubin - Ua Blood - Ua Color yellow Ua Glucose 100mg/dl Ua Leuko - Ua Nitrite - Ua PH Test Strip 6.0 Ua Protein - Ua Specific Cameron 1.020 Ua Urobilinogen - .Renal Panel 05/25/2020 [place] .Albumin 4.4 .Calcium 10.1 .Carbon Dioxide 26 .Chloride 104 .Creatinine-LC 1.37 .Phosphorus 87 .Sodium 140 .BUN 24 .GFR-LC 43 High 20 .Potassium 4.6 .Ua 06/17/2019 [place] Ua Appearance HAZY Ua Bacteria 1+ Ua Bilirubin NEG Ua Blood NEG Ua Color YELLOW Ua Epithelial Cells QL 2-5 Ua Glucose NEG Ua Ketones NEG Ua Leuko NEG Ua Nitrite NEG Ua PH Test Strip 6.0 Ua Protein TRACE Ua Specific Cameron 1.025 Ua Urobilinogen NORMAL Ua WBC 0-2 .Urine Protein/Creat. Random 06/17/2019 [place], [place] [phone] .Urine Protein Random 18 .Urine Creatini ne Random 228.2 .Urine Prot/Cre at Ratio 0.08 .Magnesium 06/17/2019 [place] .Magnesium 2.3 .Hemoglobin And Hematocrit 06/17/2019 [place] .Hemoglobin Blood 12.1 .Hematocrit 35.4 .Renal Panel 06/17/2019 [place] .Albumin 4.3 .Calcium 10.4 .Carbon Dioxide 24 .Chloride 103 .Creatinine-LC 1.27 .Phosphorus 3.0 .Sodium 140 .BUN 18 .GFR-LC 47 High 20 .Potassium 3.8 .Renal Panel -LC 04/14/2018 [place], [place] [phone] .Albumin 3.7 .Calcium 8.9 .Carbon Dioxide 30 .Chloride 101 .Creatinine-LC 1.28 .Phosphorus 3.6 .Sodium 140 .BUN 19 .GFR-LC 47 High 20 .Potassium 4.1 .Urine Protein/Creat. Random 04/14/2018 [place] .Urine Protein Random 7 .Urine Creatini ne Random 100.7 .Urine Prot/Cre at Ratio 0.07 .CBC W/Differential 04/14/2018 [place], [place] [phone] .White Blood Count 8.6 .Red Blood Count 4.40 .Hemoglobin Blood 13.3 .Hematocrit 39.4 MCH (Corpuscula r Hemoglobin) 30.2 MCHC (Corpuscul ar Hemog Conc) 33.7 RDW 15.6 .Platelet Count Blood 232 Neutrophils 59 Fluid Lymphocytes 31 Monocytes 6 Fluid Body Eosinophils 3 Basophils % 1 Absolute Basophils 0.10 Absolute Eosinophils 0.20 Absolute Lymphocytes 2.70 Absolute Monocytes 0.50 .Ipth 04/14/2018 [place] .Ipth 63.56 Xray 11/18/[address], Abdomen, W/ Contrast SEE REPORT Xray 11/18/[address], Abdomen, W/ Contrast CORTICAL CYST L KIDY .Urinalysis-Cult ure 11/17/2017 [facility] [phone] Culture Urine NO SIGNIFICANT H .Urinalysis-Rout ine 11/17/2017 [facility] [phone] Ua Specific Cameron 1.014 Ua PH Test Strip 6.0 Ua [...] 54 High 20 .Urine Prot/Creat Ratio 02/17/2017 [place] .Urine Prot/Creat Ratio 0.07 Miscellaneous Other 02/17/2017 [place] Misc Test - Put Test In Order completed .Renal Panel -LC 02/17/2017 [place] .Albumin 4.1 .Calcium 9.4 .Carbon Dioxide [...] ar Hemog Conc) 34.1 .Urinalysis-Rout ine 06/08/2015 [place], [place] [phone] Ua Specific Cameron 1.020 Ua PH Test Strip 5.0 Ua Color yellow Ua Appearance clear Ua Protein negative Ua Glucose negative Ua Bilirubin negative Ua Urobilinogen normal Ua Nitrite negative .Hemoglobin And Hematocrit 06/08/2015 [place], [place] [phone] .Hemoglobin Blood 12.8 .Hematocrit 38.2 .Urine Protein/Creat. Random 06/08/2015 [place], [place] [phone] .Urine Protein Random 13 .Urine Creatini ne Random 219.4 .Urine Prot/Cre at Ratio 0.05 Urine Culture 06/08/2015 [place], [place] [phone] Culture Urine Routine see report .Renal Panel 06/08/2015 [place] .Albumin 4.0 .Calcium 8.9 .Carbon Dioxide 26 .Chloride 101 .Creatinine-LC 1.29 .Phosphorus 3.0 .Potassium 3.6 .Sodium 139 .BUN 14 .GFR-LC 47 High 20 .Ua 12/29/2014 [place] Ua Appearance clear Ua Bilirubin negative Ua Blood trace Ua Color yellow Ua Epithelial Cells QL 2 to 5 Ua Glucose negative Ua Leuko negative Ua Nitrite negative Ua PH Test Strip 5.0 Ua Protein negative Ua RBC 0 to 2 Ua Specific Cameron 1.020 Ua Urobilinogen normal .Renal Panel 12/29/2014 [place], [place] [phone] .Albumin 4.1 .Calcium 9.7 .Carbon Dioxide 30 .Chloride 102 .Creatinine-LC 1.50 .Phosphorus 4.2 .Potassium 4.1 .Sodium 142 .BUN 18 .GFR-LC 40 High 20 .Urine Protein/Creat. Random 12/29/2014 [place], [place] [phone] .Urine Protein Random 6 .Urine Creatini ne Random 126.0 .Urine Prot/Cre at Ratio 0.05 .Renal Panel 12/06/2014 [place], [place] [phone] .Albumin 4.0 .Calcium 9.2 .Carbon Dioxide 28 .Chloride 101 .Creatinine-LC 1.32 .Phosphorus 3.0 .Potassium 4.3 .Sodium 139 .BUN 17 .GFR-LC 46 High 20 .Urine Protein/Creat. Random 12/06/2014 [place] .Urine Protein Random 7 .Urine Creatini ne Random 196.8 .Urine Prot/Cre at Ratio 0.04 .Ua 12/06/2014 [place] Ua Appearance clear Ua Bacteria 1+ Ua Bilirubin negative Ua Blood trace Ua Color yellow Ua Epithelial Cells QL 2 to 5 Ua Glucose negative Ua Leuko negative Ua Nitrite negative Ua PH Test Strip 6.0 Ua Protein negative Ua RBC 2 to 5 Ua Specific Cameron 1.020 Ua Urobilinogen normal .Complement C3 06/13/2014 [place] .Complement C3 140 .Magnesium 06/13/2014 [place], [place] [phone] .Magnesium 2.3 .Calcium 06/13/2014 [place] .Calcium 9.1 .Phosphorus 06/13/2014 [place] .Phosphorus 3.8 .Urine Protein 24HR 06/13/2014 [place] .Urine Protein Total 24H 63 .Urinalysis-Rout ine 06/13/2014 [place] Ua Specific Cameron 1.015 Ua PH Test Strip 6.0 Ua Color YELLOW Ua Appearance CLEAR Ua Protein NEGATIVE Ua Glucose NEGATIVE Ua Bilirubin NEGATIIVE Ua Urobilinogen NORMAL Ua Nitrite NEGATIVE .V Ipth-Vitamin D 06/13/2014 [place] .Ipth 49.31 .Vitamin D, 25 Hydroxy 28.9 .Anca Panel-LC 06/13/2014 [place] .Anca-C 30 .Anca-P 7 .Urine Protein Elect Ran 06/13/2014 [place] Urine Interpretation NORMAL .GBM Antibody-LC 06/13/2014 [place] .Anti-GBM- 4 .Complement Total (CH50) 06/13/2014 [place] .Complement Total (CH50) 115 .Complement C4 06/13/2014 [place] .Complement C4 29 .Ipth 06/13/2014 [place] .Ipth 49.31 .Lipid Panel 06/13/2014 [place] .Cholesterol 41 .Cholester/HDL Ratio 5.6 High Density Lipoprotein 41 .LDL/HDL Ratio 58 .LDL Cholesterol 131 .Triglycerides 289 .Immunofixation- Urine 06/13/2014 [place] .Immunofixation-U rine NEGATIVE .Vitamin D, 25 Hydroxy 06/13/2014 [place] .Vitamin D, 25 Hydroxy 28.9 .Cryoglobulin 06/13/2014 [place] .Cryoglobulin 0 .Hepatitis B-Surface Antigen 06/13/2014 [place] .Hepatitis B-Surface Antigen NON REACTIVE .Hepatitis C 06/13/2014 [place] .Hepatitis C NON REACTIVE .Immunofixation- Serum 06/13/2014 [place] .Immunofixation-S genesis NEGATIVE .Hemoglobin And Hematocrit 06/13/2014 [place] .Hemoglobin Blood 13.0 .Hematocrit 37.9 .Urine Eosinophils Random 06/13/2014 [place] .Urine Eosinophils Random NONE SEEN .BUN 06/13/2014 [place] .BUN 18 .Creatinine-LC 06/13/2014 [place] .Creatinine-LC 1.27 .GFR-LC 06/13/2014 [place] .GFR-LC 58 High 20 .Sodium 06/13/2014 [place] .Sodium 138 .Potassium 06/13/2014 [place] .Potassium 4.4 .Chloride 06/13/2014 [place] .Chloride 103 .Carbon Dioxide 06/13/2014 [place] .Carbon Dioxide 27 .Renal Panel 05/30/2014 [facility] [phone] .Albumin 3.9 .Calcium 9.3 .Carbon Dioxide 27 .Chloride 101 .Creatinine-LC 1.41 .Potassium 3.6 .Sodium 136 .BUN 16 .GFR-LC 42 High 20 .GFR 51 High 20 .GFR 42 High 20 .Urinalysis-Rout ine 05/30/2014 [facility] [phone] Ua Specific Cameron 1.030 Ua PH Test Strip 5.0 Ua [...] Provider Dx Diagnosis Office Visit 05/13/2024 1:00p [facility] SHUKRI Sebastian N11.9 Chronic tubulo-interstitial nephritis, unspecified N18.31 Chronic kidney disea se, stage 3a Office Visit 05/18/2023 11:00a [facility] Jerica Stokes N11.9 Chronic tubulo-interstitial nephritis, unspecified N18.31 Chronic kidney disea se, stage 3a D50.9 Iron deficiency anem ia, unspecified E55.9 Vitamin D deficiency , unspecified Office Visit 05/23/2022 11:00a [facility] Jerica Stokes N11.9 Chronic tubulo-interstitial nephritis, unspecified N18.31 Chronic kidney disea se, stage 3a D50.9 Iron deficiency anem ia, unspecified E55.9 Vitamin D deficiency , unspecified Office Visit 05/22/2021 1:30p [facility] Tequila Giles NP N11.9 Chronic tubulo-interstitial nephritis, unspecified N18.30 Chronic kidney disea se, stage 3 unspecified Office Visit 06/08/2020 11:20a [facility] Heather Forbes M.D. N11.9 Chronic tubulo-interstitial nephritis, unspecified N18.3 Chronic kidney disea se, stage 3 (moderate) Office Visit 06/22/2019 10:00a [facility] Heather Forbes M.D. N11.9 Chronic tubulo-interstitial nephritis, unspecified N18.3 Chronic kidney disea se, stage 3 (moderate) Office Visit 05/04/2018 10:20a [facility] Heather Forbes M.D. N11.9 Chronic tubulo-interstitial nephritis, unspecified N18.3 Chronic kidney disea se, stage 3 (moderate) Office Visit 03/13/2017 2:00p [facility] Heather Forbes M.D. N11.9 Chronic tubulo-interstitial nephritis, unspecified N18.3 Chronic kidney disea se, stage 3 (moderate) E78.1 Pure hyperglyceridem ia Office Visit 06/15/2015 1:00p [facility] Heather king M.D. 585.3 Chronic Kidney Disease Stage 3 582.89 Interstitial Nephrit is 530.81 Esophageal Reflux Office Visit 12/15/2014 1:00p [facility] BRENDEN Boyer 585.3 Chronic Kidney Disease Stage 3 582.89 Interstitial Nephrit is V58.64 [facility] (Current)Us e Of Non-Steroid Antiinflammatories 530.81 Esophageal Reflux Office Visit 07/07/2014 11:40a [facility] Heather high M.D. 585.3 Chronic Kidney Disease Stage 3 582.89 Interstitial Nephrit is V58.64 [facility] (Current)Us e Of Non-Steroid Antiinflammatories 530.81 Esophageal Reflux Office Visit 06/09/2014 1:00p [facility] Doug Elda ngo M.D. 585.3 Chronic Kidney Disease Stage 3 582.89 Interstitial Nephrit is V58.64 [facility] (Current)Us e Of Non-Steroid Antiinflammatories 789.00 Pain [...] 05/23/2022 N11.9 Chronic tubulo-i nterstitial nephritis, unspecified [place], Jerica 05/23/2022 N18.31 Chronic kidney disease, stag e 3a Kike, Jerica 05/23/2022 D50.9 Iron deficiency anemia, unsp ecified Kike, Jerica 05/23/2022 E55.9 Vitamin D deficiency, unspec ified Kike, Jerica 05/22/2021 N11.9 Chronic tubulo-i nterstitial nephritis, unspecified Heather Kamadana M.D. 05/22/2021 N11.9 Chronic tubulo-i nterstitial nephritis, unspecified Tequila N Wehr, STRAND GALVANIZER 05/22/2021 N18.30 Chronic kidney disease, stag e 3 unspecified Heather Kamadana M.D. 05/22/2021 N18.30 Chronic kidney disease, stag e 3 unspecified Tequila N Wehr, STRAND GALVANIZER 06/08/2020 N11.9 Chronic tubulo-i nterstitial nephritis, unspecified Heather Kamadana M.D. 06/08/2020 N18.3 Chronic kidney disease, stag e 3 (moderate) Heather Kamadana M.D. 06/22/2019 N11.9 Chronic tubulo-i nterstitial nephritis, unspecified Haether Kamadana M.D. 06/22/2019 N18.3 Chronic kidney disease, [...] 585.3 Chronic Kidney Disease Stage 3 Heather Frobes M.D. 06/15/2015 582.89 Interstitial Nephritis Polly Forbes M.D. 06/15/2015 530.81 Esophageal Reflux Heather stevens M.D. 12/15/2014 585.3 Chronic Kidney Disease Stage 3 Cheryl Palomo, OPERATIONS LIEUTENANT 12/15/2014 582.89 Interstitial Nephritis Cheryl Palomo, [employer]IE[employer]ENANT 12/15/2014 V58.64 [facility] (Curren t)Use Of Non-Steroid Antiinflammatories Cheryl Palomo, [employer]ATIONS LIEUTENANT 12/15/2014 530.81 Esophageal Reflux Cheryl liang, [employer]ATIONS LIEUTENANT 07/07/2014 585.3 Chronic Kidney Disease Stage 3 Heather Forbes M.D. 07/07/2014 582.89 Interstitial Nephritis Polly Forbes M.D. 07/07/2014 V58.64 [facility] (Curren t)Use Of Non-Steroid Antiinflammatories Heather Forbes M.D. 07/07/2014 530.81 Esophageal Reflux Heather stevens M.D. 06/09/2014 585.3 Chronic Kidney Disease Stage 3 Doug Klein M.D. 06/09/2014 582.89 Interstitial Nephritis Kenroy Klein M.D. 06/09/2014 V58.64 [facility] (Curren t)Use Of Non-Steroid Antiinflammatories Doug Klein M.D. 06/09/2014 789.00 Pain Abdominal Unspec Site S yasmin Klein M.D.
--- OUTSIDE RECORDS SUMMARY | 2025-05-03 13:57 | XMS_ITS | Encounter Summary ---
Author Organization [facility] Address [address] [place] [address] Care Team Providers Care Rn Review Name Role Phone Felipe Adam MD Primary Care Provider [phone] Encounter Details Date Type Department Care Team (Late st Contact Info) Description 05/01/2015 Abstract [facility] Bariatrics [address] [place] [phone] Hali Gallegos MA Social History Tobacco Use [...] Description 10/12/2025 10:30 AM EST Office Visit [facility] [address] [facility] [place] [address] Dimas Adair MD [facility] [address] [place] [address] documented as of this encounter Visit Diagnoses Not on filedocumented in this encounter Care Teams Rn Review Relationship Specialty Start Date End Date Back, MD Felipe [address] [id number] PCP - General Internal Medicine 03/26/15 documented as of this encounter
--- OUTSIDE RECORDS SUMMARY | 2025-05-03 13:57 | XMS_ITS | Clinical Summary ---
Author Organization [facility] Address [address] [place] [address] Phone Care Team Providers Care Cartographic Engineer Name Role Phone Unavailable Primary Care Provider [...]
--- OUTSIDE RECORDS SUMMARY | 2025-05-03 13:57 | XMS_ITS | Clinical Summary ---
Author Organization [facility] Address [address] [place] [address] Care Team Providers Care Body Hanger Name Role Phone Back, Alcides MELENDREZ Primary Care Provider [phone] Allergies No known active allergies Medications Cetirizine [...] (09/29/2017): Added automatically from request for surgery [id number] Basal cell carcinoma of skin of face [...] to complete this topic Insurance Care Teams Body Hanger Relationship Specialty Start Date End Date Back, MD Alcides [address] [place] [address] PCP - General Internal Medicine 07/31/17
--- OUTSIDE RECORDS SUMMARY | 2025-05-03 13:57 | XMS_ITS | Encounter Summary ---
Author Organization [facility] Address [address] [facility] [place] [address] Care Team Providers Care Legal Document Specialist Name Role Phone Alcides Adam MD Primary Care Provider [phone] Encounter Details Date Type Department Care Team (Late Contact Info) Description 08/24/2023 Clinisync Result Encounter [facility] External Department Unsolicited Trace Casas MD [address] [place] [address] [phone] Social History Tobacco Use Types Packs/Day Years [...] Upcoming Encounters Date Type Department Care Team ([facility] Contact Info) Description 05/17/2025 1:20 PM EDT Office Visit [facility] [address] [facility] [address] [place] [phone] Trace Casas MD [address] [place] [address] [phone] 05/23/2025 4:00 PM EDT Office Visit [facility] [address] [place] [address] Nash Block MD [address] [facility] [address] [place] [address] documented as of this encounter [...] on filedocumented in this encounter Care Teams Legal Document Specialist Relationship Specialty Start Date End Date Back, MD Alcides [address] [place] [address] PCP - General Family Medicine 12/08/24 documented as of this encounter
--- OUTSIDE RECORDS SUMMARY | 2025-05-03 13:57 | XMS_ITS | Clinical Summary ---
Author Organization [facility] Address [address] [place] [address] Care Team Providers Care Roll Press Operator Name Role Phone Felipe Adam MD Primary Care Provider [phone] Allergies Active Allergy Reactions Criticality Noted Date [...] Description 10/12/2025 10:30 AM EST Office Visit [facility] [address] [place] [address] Dimas Adair MD [address] [place] [address] Health Maintenance Due Date Last Done Comments [...] Screen Negative Negative 10/21/2017 9:47 AM EST [facility] Blood BLOOD SPECIMEN / Unknown 10/20/2017 5:25 PM EST 10/20/2017 10:58 PM EST Narrative [facility] - 10/21/2017 9:47 AM EST Test performed using [employer] Immunodiagnostic system. us Edu Parry MD LAB BLOOD ORDERABLES Lou l Result [facility] [address] [place] [address] * High Risk HPV with Genotype 16,18 (03/20/2017 12:00 AM EDT) HPV 16 Negative Negative 04/01/2017 2:01 PM EDT [facility] HPV 18 Negative Negative 04/01/2017 2:01 PM EDT [facility] HPV, Other HR Types Negative Negative 04/01/2017 2:01 PM EDT [facility] Pap, Liquid Based CERVIX UTERI STRUCTURE / Unknown 03/20/2017 03/31/2017 9:32 PM EDT Narrative [facility] - 04/01/2017 2:01 PM EDT Assay performed using [employer] Twin 4800 system utilizing Real-Time PCR to amplify target HPV DNA. This system specifically identifies HPV16 and HPV18 while concurrently detecting the other twelve high risk types (31,33,35,39,45,51,52,56,58,59,66,68). Shanice Richard DO BODY FLUIDS AND STO OLS ORDERABLES Final Result [facility] [address] [place] [id number] * Thinprep Pap Smear (03/20/2017 12:00 AM [...] HPV DNA. This system specifically identifies HPV16 [id number] while concurrently detecting the other twelve high risk types(31,33,35,39,45,51,52,56,58,59,66,68). Completed by on 2017-04-02 Electronically Signed By Arielle NEFF (ASCP) , Dress Draper (Case signed 03/30/2017) The Papanicolaou smear is a screening tool, and like any screen, has an inherent false negative rate. Interpretation of results should be made in the context of patient history and clinical findings. Shanice Leemary Jose Manuel DO PATHOLOGY/CYTOLOGY ORDERABLES Final Result HORIZON from Last 3 Months or Most Recently Relevant to Health Maintenance Insurance [facility] HMO/CHOICE PLUS/DULCE/DULCE PLUS Care Teams Roll Press Operator Relationship Specialty Start Date End Date Back, MD Felipe [address] [place] [address] PCP - General Internal Medicine 03/26/15
--- OUTSIDE RECORDS SUMMARY | 2025-05-03 13:57 | XMS_ITS | Encounter Summary ---
Author Organization [facility] Address [address] [facility] [place] [address] Care Team Providers Care Farm Management Adviser Name Role Phone Alcides Adam MD Primary Care Provider [phone] Encounter Details Date Type Department Care Team [...] Office Visit TERRY Gutierrez Neurology [address] [facility] [place] [address] Trace Casas MD [address] [facility] [address] [address] 05/23/2025 4:00 PM EDT [facility] [address] [facility] [place] [address] Nash Block MD [address] S[address] Villegas [address] [place] [address] documented as of this encounter Visit Diagnoses Not on filedocumented in this encounter Care Teams Farm Management Adviser Relationship Specialty Start Date End Date Back, MD Alcides [address] [place] [address] PCP - General Family Medicine 12/08/24 documented as of this encounter
--- OUTSIDE RECORDS SUMMARY | 2025-05-03 13:57 | XMS_ITS | Encounter Summary ---
Author Organization [facility] Address [address] [place] [address] Care Team Providers Care Certified Professional Controller Name Role Phone Alcides Adam MD Primary Care Provider [phone] Reason for Visit * Reason Comments Med Refill Encounter Details Date Type Department Care Team (Late st Contact Info) Description 07/20/2023 Refill [facility] Gutierrez Neurology [address] [address] Trcae aCsas MD [address] [facility] [address] Villegas [address] [place] [address] [phone] Idiopathic progressive polyneuropathy Social History Tobacco Use [...] TERRY Gutierrez Neurology [address] [facility] [address] [place] [address] Trace Casas MD 53[address] [facility] [address], [place] [phone] 05/23/2025 4:00 PM EDT Office Visit TERRY Gutierrez [facility] Neurology [address] [facility] [address] [place] [address] Nash Block MD 5319 [facility] [address] Villegas [address] [place] [address] [phone] documented as of this encounter Visit Diagnoses Diagnosis Idiopathic progressive polyneuropathy documented in this encounter Care Teams Certified Professional Controller Relationship Specialty Start Date End Date Back, MD Alcides [address] [place] [address] PCP - General Family Medicine 12/08/24 documented as of this encounter
--- OUTSIDE RECORDS SUMMARY | 2025-05-03 13:58 | XMS_ITS | Encounter Summary ---
Author Organization [facility] Address [address] [place] [address] Care Team Providers Care Barnworker Groom Name Role Phone Alcides Adam MD Primary Care Provider [phone] Encounter Details Date Type Department Care Team (Late Contact Info) Description 04/20/2025 Bamboo flowsheet [facility] [address] [place] [address] Dandy Sánchez, DPM [address] [place] [address] Social History Tobacco Use Types Packs/Day Years [...] TERRY Gutierrez Neurology [address] [facility] [place] [address] Trace Casas MD [address] [facility] [address] Villegas [address] [place] [address] 05/23/2025 4:00 PM EDT Office Visit TERRY Felipe Neurology [address] [facility] [address] [place] [address] Nash Block MD 5326 [facility] [place] [facility] [address] [place] [address] documented as of this encounter Visit Diagnoses Not on filedocumented in this encounter Care Teams Barnworker Groom Relationship Specialty Start Date End Date [place] [address] PCP - General Family Medicine 12/08/24 documented as of this encounter
--- OUTSIDE RECORDS SUMMARY | 2025-05-03 13:58 | XMS_ITS | Encounter Summary ---
Author Organization [facility] Address [address] [facility] [place] [address] Care Team Providers Care Data Entry Name Role Phone Alcides Adam MD Primary Care Provider [phone] Encounter Details Date Type Department Care Team [...] Gutierrez Neurology [address] [facility] [address] [place] [address] Trace Casas MD 3119 [facility] [address], [place] [address] 05/23/2025 4:00 PM EDT Office Visit TERRY Gut[facility]rez [facility] [address] [facility] [address] [place] [address] Nash Block MD [address]as [address] [place] [address] documented as of this encounter Visit Diagnoses Not on filedocumented in this encounter Care Teams Data Entry Relationship Specialty Start Date End Date Back, MD Alcides [address] [place] [address] PCP - General Family Medicine 12/08/24 documented as of this encounter
--- OUTSIDE RECORDS SUMMARY | 2025-05-03 13:58 | XMS_ITS | Clinical Summary ---
Author Organization [facility] Healthcare Address [address] [place] [address] Care Team Providers Care Smelter Liner Name Role Phone Alcides Adam MD Primary Care Provider [phone] Allergies Active Allergy Reactions Criticality Noted Date [...] Orders: Ambulatory referral to Neurology Epidural abscess ([facility]) 08/20/2018 Septic arthritis 08/20/2018 Abdominal pain 05/04/2018 Pure hyperglyceridemia 05/04/2018 Pyelonephritis 05/04/2018 Neoplasm of uncertain behavior of skin 8 Peripheral neuropathy 12/01/2017 Basal cell carcinoma of skin of face 09/16/2017 Overview (03/08/2023): Added automatically from request for surgery [id number] Overview: Added automatically from request for surgery [id number] Mixed hyperlipidemia 03/19/2017 Carpal tunnel syndrome of [...] Office Visit [facility] [address] [place] [address] Dandy Wasserman, DPMónica MRSA (methicillin resistant staph aureus) culture positive (Primary Dx); Right foot pain; Skin ulcer of toe of right foot with fat layer exposed (HCC); Idiopathic progressive polyneuropathy; Infection of toe; Charcot arthropathy of midfoot; Ulcer of left foot, limited to breakdown of skin (HCC); Closed nondisplaced fracture of second metatarsal bone of right foot, initial encounter 04/20/2025 Bamboo flowsheet [facility] [address] [place] [address] Dandy Wasserman, DPM 04/20/2025 Travel 04/19/2025 Travel 04/12/2025 Results Follow-Up [facility] [address] [place] [address] Dandy Wasserman, INDER 04/12/2025 Clinisync Result Encounter [facility] External Department Unsolicited Dandy Wasserman DPM 04/11/2025 Telephone [facility] [address] [place] [address] Dandy Wasserman, INDER 04/11/2025 Clinisync Result Encounter [facility] External Department Unsolicited Dandy Wasserman, INDER 04/06/2025 5:10 PM EDT Ancillary Procedure [facility] [address] [place] [address] 04/06/2025 4:30 PM EDT Office Visit [facility] [address] [place] [address] Dandy Wasserman DPM Right foot pain (Primary Dx); Skin ulcer of toe of right foot with fat layer exposed (HCC); Infection of toe; Idiopathic progressive polyneuropathy; Generalized edema 04/06/2025 Bamboo flowsheet [facility] [address] [facility] [place] [address] Dandy Wasserman DPM 04/06/2025 Travel 03/14/2025 12:00 PM EDT Office Visit TERRY Gutierrez [facility] Neurology [address] [place] [address] [place] [address] Nash Block MD BUCK (obstructive sleep apnea) (Primary Dx); Claustrophobia ; Hypersomnia 03/14/2025 Bamboo flowsheet [facility] [address] [place] [address] Nash Block MD 03/14/2025 Travel 02/13/2025 1:00 PM EDT Office Visit TERRY Gutierrez Neurology [address] [place] [address] [place] [address] Trace Casas MD Charcot's joint, left ankle and foot (Primary Dx); Gait instability; Idiopathic progressive polyneuropathy; Intractable 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 ; Restless legs; Carpal tunnel syndrome, bilateral; BUCK (obstructive sleep apnea) 02/13/2025 Bamboo Cuffed and Wantedheet [facility] [address] [place] [address] Trace Casas MD 02/13/2025 Travel from Last [...] TERRY Gutierrez Neurology [address] [address] Trace Casas MD [address] [facility] [address], [place] [id number] 05/23/2025 4:00 PM EDT Office Visit TERRY Gutierrez [facility] Neurology [address] [facility] [address] [place] [address] Nash Block MD [address] [facility] [address] Villegas [address] [place] [address] [phone] Procedures Procedure Name Priority Date/Time Associated Diagnosis [...] MD 04/12/25 Final result us Dandy Wasserman [facility] Final Result * (ABNORMAL) [...] Final Result from Last 3 Months Insurance [facility] Care Teams Smelter Liner Relationship Specialty Start Date End Date Back, MD Alcides [address] [place] [address] PCP - General Family Medicine 12/08/24
[2025-05-03 14:15] LABS: Hematocrit 31.4 % (36.0-48.0); Hemoglobin 9.9 g/dL (12.0-16.0); Immature Granulocytes Abs Auto 0.08 10^3/uL (0.00-0.03); Immature Granulocytes Pct Auto 1.5 % (0.0-0.5); Lymphocytes Absolute Auto 1.4 10^3/uL (1.2-3.8); Mean Corpuscular HGB Conc 31.5 g/dL (29.9-35.2); Mean Corpuscular Hemoglobin 27.9 pg (26.7-34.0); Mean Corpuscular Volume 88.5 fL (81.0-99.0); Platelet Count 159 10^3/uL (150-450); Red Blood Count 3.55 10^6/uL (4.20-5.40); White Blood Count 5.4 10^3/uL (4.0-11.0)
[2025-05-03 15:10] LABS: Anion Gap 11.4; Blood Urea Nitrogen 18.0 mg/dL (7.0-18.0); Calcium 9.4 mg/dL (8.5-10.1); Carbon Dioxide 29.8 mmol/L (21.0-32.0); Chloride 101 mmol/L (98-107); Estimated GFR (African America 56 (>=60 mL/min/1.73m^2); Estimated GFR (Non-African Ame 46 (>=60 mL/min/1.73m^2); Glucose 123 mg/dL (74-106); Potassium 4.2 mmol/L (3.5-5.1); Sodium 138 mmol/L (136-145)
== END 2025-05-03 13:55 | disposition home or self-care (01) ==
LOC: LAB 13:55
PROVIDERS: PCP Internal Medicine; Visit Provider Physician Assistant
DX: M86.171 Other acute osteomyelitis, right ankle and foot (principal)
CPT/HCPCS: 11043; 36415; 80048; 85025; 87070; 87075; 87077; 87186; 87205

== ENCOUNTER 2025-05-17 10:22 | Outpatient (OUT) | payer OTHER, SELFPAY ==
--- OUTSIDE RECORDS SUMMARY | 2024-09-20 07:15 | XMS_ITS ---
Author Organization The [facility] in [place] Address [address] [place] [address] Care Team Providers Care Horse Race Starter Name Role Phone None, Unknown or Primary Care Provider Unavailab Nimesh Plascencia Unavailable [phone] Allergies Allergen (clinical drug ingredient) Drug/Non Drug [...] Encounters Encounter Location Date Provider Diagnosis [facility] [place] (PODIATRY) [address] [place] [address] [place] [address] 09/20/2024 Nimesh Chase Pseudarthrosis after fusion or [...] Celina GASPAR MDOB: [birth year] (44 yo F)Acc No.[id number]:09/20/2024 Follow Up Patient: Celina DRAKE Provider: Frank Chase DPM, MS :1980 A ge:44 Y S ex:Female Date:09/20/2024 Address:[address] [place] [address], [id number] Pcp:Unknown or None Check In:10:59 AM ESTCheck [...] polyneuropathy Modified On:10/02/2023W/U Status:confirmed 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
--- OUTSIDE RECORDS SUMMARY | 2024-11-18 07:00 | XMS_ITS ---
Author Organization The [facility] in [place] Address [address] [place] [address] Care Team Providers Care Fur Buyer Name Role Phone None, Unknown or Primary Care Provider Unavailab Nimesh Plascencia Unavailable [phone] Allergies Allergen (clinical drug ingredient) Drug/Non Drug Allergy documented on EMR Reaction Allergy Type Onset Date Status ChloraPrep One Step Unknown Drug Allergy Active REASON FOR VISIT order bone stim Medications Medication SIG (Take, Route, Frequency, Duration) Notes Start Date End Date Status Biotin Active Calcium Active Lisdexamfetamine Dimesylate 50 MG Oral for 30 Days Active Famotidine 20 MG TAKE 1 TABLET BY BLANCA TH 2 TIMES DAILY Oral for 30 Days Active Gemfibrozil Active Zoloft Active Vitamin B Complex Ac tive Baclofen Active Vitamin D Active Alendronate Sodium 70 MG 1 tablet 30 min utes before the first food, beverage or medicine of the day with plain water Orally weekly for 94 days 07/01/2024 Active rOPINIRole HCl Activ e Naltrexone Active Nurtec Active Lyrica Active Social History Tobacco Use: Social History Observation Description Date Details (start date - stop date) Never Smoker NA - NA Tobacco Use/Smoking Question Answer Notes Patient is a nonsmoker Vital Signs Weight 200 lbs 11/18/2024 Height 62 in 11/18/2024 Temperature 97.2 degrees Fahrenheit 11/18/19 25 Heart Rate 88 /min 11/18/2024 BMI 36.58 kg/m2 11/18/2024 Oximetry 96 % 11/18/2024 Encounters Encounter Location Date Provider Diagnosis [facility] (PODIATRY) [address] [place] [address] [place] [address] 11/18/2024 Nimesh Chase Pseudarthrosis after fusion or arthrodesis M96.0 ; Charcot's joint, left ankle and foot M14.672 and Pain in left foot M79.672 Assessments Encounter Date Diagnosis (ICD Code) Assessment Notes Treatment Notes Treatment Clinical Notes Section Notes 11/18/2024 Pseudarthrosis after fusion or arthrodesis (ICD-10 - M96.0) Patient is now over 9 months from medial column and subtalar joint fusion performed for midfoot Charcot reconstruction. 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 A bone stimulator was prescribed and she is to use as directed. Fortunately she has not lost any significant correction and her foot remains plantigrade although there is loosening of the hardware. I recommended that she return to her cam boot but may be fitted for diabetic shoes. If she has any issues with her skin or experiences any pain or anything at all concerning she is to call the office immediately for follow-up otherwise she will follow-up in 2 months with foot x-rays 11/18/2024 Charcot's joint, left ankle and foot (ICD-10 - M14.672) 11/18/2024 Pain in left foot (ICD-10 - M79.672) Plan Of Treatment Treatment Notes Assessment Notes Pseudarthrosis after fusion or arthrodes is Patient is now over 9 months from medial column and subtalar joint fusion performed for midfoot Charcot reconstruction. 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 A bone stimulator was prescribed and she is to use as directed. Fortunately she has not lost any significant correction and her foot remains plantigrade although there is loosening of the hardware. I recommended that she return to her cam boot but may be fitted for diabetic shoes. If she has any issues with her skin or experiences any pain or anything at all concerning she is to call the office immediately for follow-up otherwise she will follow-up in 2 months with foot x-rays Pending Test Test Name Order Date XR Foot LT (3 views) * 11/18/2024 Progress Notes * Celina GASPAR MDOB: [birth year] (44 yo F)Acc No.[id number]:11/18/2024 Follow Up Patient: Celina DRAKE Provider: Frank Chase DPM, MS :1980 A ge:44 Y S ex:Female Date:11/18/2024 Address:[facility] [address] [facility], [id number] Pcp:Unknown or None Check In:10:44 AM ESTCheck O ut:11:20 AM EST Subjective: * Chief Complaints: * O rder bone stim * HPI: G eneral: Patient in office today for follow up for her left foot and ankle. She underwent left midfoot Charcot reconstruction on 02/15/2024. Currently wearing normal shoe wear and compression stockings. She states she has an appointment for diabetic shoes on Thursday. She has no new issues or complaints. She denies pain or ulceration. * ROS: G eneral/Constitutional: Chills d enies. F ever d enies. W eight gain?denies. W eight loss d enies. S kin: Skin Ulcers d enies. S kin lesion(s) d enies. ? C ardiovascular: Difficulty breathing on exertion d enies. L eg cramps?denies. E roxy d enies. C hest pain d enies. R espiratory: Difficulty breathing d enies. D yspnea d enies.?Cough d enies. G astrointestinal: Diarrhea d enies. N ausea d enies. V omiting?denies. M usculoskeletal: Bone/Joint Symptoms d enies. C senior living Pain d enies.?Leg cramps d enies. N eurologic: Numbness d enies. T ingling d enies . G ait abnormality d enies. ? H ematology: Anemia D enies. E asy bruising d enies. ? A ll Other Systems: Review of Systems (ROS) S ee HPI for details,All others negative except those mentioned in HPI. * Active Problem List M79.672 Pain in left foot Modified On:12/30/2023W/U Status:confirmed M25.572 Pain in left ankle a nd joints of left foot Modified On:04/15/2023W/U Status:confirmed M14.672 Charcot's joint, lef t ankle and foot Modified On:4Risk:HighW/U Status:confirmed M19.079 Primary osteoarthrit is, unspecified ankle and foot Modified On:04/15/2023U Status:confirmed G60.9 Hereditary and idiop athic neuropathy, unspecified Modified On:12/30/2023U Status:confirmed E11.42 Type 2 diabetes reid itus with diabetic polyneuropathy Modified On:02/11/2023U Status:confirmed M21.6X2 Other acquired defor mities of left foot Modified On:4Risk:HighW/U Status:confirmed M24.572 Contracture, left an kle Modified On:12/30/2023U Status:confirmed E11.42 Type 2 diabetes reid itus with diabetic polyneuropathy Modified On:10/02/2023/U Status:confirmed T81.31XA Disruption of cardiovascular tech al operation (surgical) wound, not elsewhere classified, [...] Family History: M other: alive, diagnosed with Unspecified essential hypertension, Unspecified heart disease, Other malignant neoplasm of unspecified site, Diabetes mellitus without mention of complication, type II or unspecified type, not stated as uncontrolled. * Social History: T obacco Use: T [...] One Step: Allergyno[Allergies Verified] Objective: * Vitals: W t:200lbs, Ht: 62 in, Temp:97.2F, HR:88/min, BMI:36.58Index, Pain scale:31-10, Oxygen sat %:96%, Ht-cm: 157.48 cm, Wt-k.72 kg. * Examination: P odiatry Examination: SKIN: s kin intact, n o sign of infection. No preulcerative lesions or callus. MUSCULOSKELETAL: M idfoot is stable with stress exam noting no range of motion along the medial column midtarsal joint or subtalar joint. Foot remains plantigrade and there is no pain on palpation. NEUROLOGICAL: N egative protective and vibratory sensation,?negative tinel's sign. VASCULAR: P edal pulses palpable, C apillaryrefill is brisk to toe, mild global left foot swelling. No calf pain on squeeze. X -rays: x-rays were obtained & reviewed in my office. Osteotomy along the midfoot is without osseous healing. Joint space along the subtalar joint is also preserved with less than 1 cm of gap. Hardware is intact however there is periprosthetic loosening noted at the leading threads of the subtalar screws within the talus. Hardware has not backed out. Assessment: * Assessment: 1. P seudarthrosis after fusion or arthrodesis - M96.0 (Primary) 2 . C harcot's joint, left ankle and foot - M14.672 R isk :High S pecify :midfoot 3 . P ain in left foot - M79.672 Plan: * Treatment: 2. P ain in left foot I maging: XR Foot LT (3 views) * * Procedure Codes: * * Sign off status: Completed Visit Status: C HK (Check Out) true * Provider: Frank Chase DPM, MS Date: 0 11/18/2024 Generated for [facility] ng/Henry/eTransmitting on: 0 05/17/2025 10:25 AM EDT History and Physical Notes * HPI (History of Present Illness) Category Sub-Category Detail Notes Category Not es General Patient in offi ce today for follow up for her left foot and ankle. She underwent left midfoot Charcot reconstruction on 02/15/2024. Currently wearing normal shoe wear and compression stockings. She states she has an appointment for diabetic shoes on Thursday. She has no new issues or complaints. She denies pain or ulceration Examination Category Sub-Category Detail Notes Category Not es Podiatry Examination SKIN: skin intact, no sign of infe ction. No preulcerative lesions or callus X-rays: x-rays were obtained & reviewed in my office. Osteotomy along the midfoot is without osseous healing. Joint space along the subtalar joint is also preserved with less than 1 cm of gap. Hardware is intact however there is periprosthetic loosening noted at the leading threads of the subtalar screws within the talus. Hardware has not backed out MUSCULOSKELETAL: Midfoot is stable wi th stress exam noting no range of motion along the medial column midtarsal joint or subtalar joint. Foot remains plantigrade and there is no pain on palpation NEUROLOGICAL: Negative protective and vibratory sensation, negative tinel's sign VASCULAR: Pedal pulses palpable, Capillary refill is brisk to toe, mild global left foot swelling. No calf pain on squeeze
--- OUTSIDE RECORDS SUMMARY | 2025-05-15 12:07 | XMS_ITS | Encounter Summary ---
Author Organization [facility] Address [address] [facility], [address] [place] [address] Care Team Providers Care Paper Control Clerk Name Role Phone Felipe Adam MD Primary Care Provider [phone] Encounter Details Date Type Department Care Team (Latest Contact Info) Description 05/15/2025 12:07 PM EDT - 05/15/2025 11:59 PM EDT Hospital Encounter [facility] [address] [place] [address] Arrived Discharge Disposition: Home or Self Care Social History Tobacco Use Types Packs/Day Years Used Date Smoking Tobacco: Never Passive Smoke Exposure: Never Smokeless Tobacco: Never Alcohol Use Standard Drinks/Week Comments No 0 (1 standard drink = 0.6 oz pur e alcohol) [facility] Utilities Answer Date Recorded In the past 12 months has [employer] electric, gas, oil, or water [employer] threatened to shut off services in your [...] place to sleep or slept in a [place] (including now)? No 05/08/2024 Housing Stability Vital Sign Answer Rikki e Recorded In the last 12 months, was t here a time when you were not able to pay the mortgage or rent on time? No 11/15/2024 In the past 12 months, how m any times have you moved where you were living? 0 11/15/2024 At any time in the past 12 m [facility], were you homeless or living in a [place] health [place] facility (including now)? No 11/15/2024 Food Insecurity Answer [...] on file documented as of this encounter Medications at Time of Discharge clindamycin (CLEOCIN) 300 MG capsule 04/13/2025 dapagliflozin (FARXIGA) 10 MG tabletIndications:S lucae 3a chronic kidney disease (HCC),Pre-diabetes Take 1 tablet by mouth every morning 90 tablet 1 04/18/2025 ALPRAZolam (XANAX) 0.25 MG tablet Take 1 tablet by mouth nightly. 03/14/2025 nortriptyline (PAMELOR) 50 MG capsule Take 3 capsules by mouth nightly 02/13/2025 famotidine (PEPCID) 20 MG tabletIndications:G astroesophageal reflux disease without esophagitis TAKE 1 TABLET TWICE A DAY 180 tablet 3 04/03/2025 gemfibrozil (LOPID) 600 MG tabletIndications:M ixed hyperlipidemia TAKE 1 TABLET TWICE A DAY 30 MINUTES BEFORE BREAKFAST AND SUPPER 180 tablet 3 02/06/2025 rOPINIRole (REQUIP) 1 MG tabletIndications:R estless legs Take 1 tablet by mouth 3 times daily 270 tablet 1 10/10/2024 linaclotide (LINZESS) 145 MCG capsuleIndications: Drug-induced constipation Take 1 capsule by mouth daily 90 capsule 1 05/09/2024 cephALEXin (KEFLEX) 250 MG capsuleIndications: Frequent UTI Take 1 capsule by mouth daily as needed (post-coital UTI prophylaxis) 30 capsule 1 08/13/2023 calcium carbonate (OSCAL) 500 MG TABS tablet Take 1 tablet by mouth 2 times daily montelukast (SINGULAIR) 10 MG tabletIndications:S easonal allergies TAKE 1 TABLET NIGHTLY 90 tablet 3 09/22/2022 fluticasone (FLONASE) 50 MCG/ACT nasal sprayIndications:Se asonal allergies USE 2 SPRAYS IN EACH NOSTRIL DAILY 48 g 3 09/22/2022 baclofen (LIORESAL) 10 MG tablet Take 1 tablet by mouth nightly 04/19/2022 pregabalin (LYRICA) 300 MG capsule Take 1 capsule by mouth 2 times daily. 02/20/2022 Biotin 1000 MCG TABS Take 1 tablet by mouth daily 02/26/[address] 1 TABLET ON OR UNDER THE TONGUE EVERY OTHER DAY 01/02/2022 sertraline (ZOLOFT) 100 MG tablet Take 2 tablets by mouth daily Currently decreasing this medication 07/30/2020 b complex vitamins capsule Take 1 capsule by mouth daily Cholecalciferol (VITAMIN D) 2000 UNITS CAPS capsuleIndications: Vitamin D deficiency Take 1 capsule by mouth daily. 30 capsule 12 09/11/2014 documented as of this encounter Plan of Treatment Upcoming Encounters Date Type Department Care Team (Late st Contact Info) Description 07/27/2025 11:00 AM EDT Office Visit [address] [address] Felipe Adam MD [address] [place] [address] Return in about 3 months (around 07/19/2025). documented as of this encounter Procedures Procedure Name Priority Date/Time Associated Diagnosis Comments MORPHOLOGY CHECK Routine 05/15/2025 12:1 1 PM EDT SEDIMENTATION RATE Routine 05/15/2025 12 :11 PM EDT CBC Routine 05/15/2025 12:11 PM EDT C-REACTIVE PROTEIN Routine 05/15/2025 12 :11 PM EDT BASIC METABOLIC PANEL Routine 05/15/2025 12:11 PM EDT documented in this encounter Results * MORPHOLOGY CHECK (05/15/2025 12:11 PM EDT) Morphology MODERATE ANISOCYTOSIS 05/15/2025 12:11 PM EDT [facility] 05/15/2025 12:1 1 PM EDT 05/15/2025 12:12 PM EDT us Nimesh Chase DPM CHEMISTRY ORDERABLES Lou l Result [facility] [address] [place] [address], [facility] [phone] * Sedimentation Rate (05/15/2025 12:11 PM EDT) Pathologist [facility] Sed Rate, Automated 19 0 - 20 mm/Hr 05/15/2025 12:11 PM EDT [facility] 05/15/2025 12:1 1 PM EDT 05/15/2025 12:12 PM EDT Nimesh Chase DP HEMATOLOGY ORDERABLES Fin al Result Performing Organization Address City/[facility]/ZIP Co de Phone Number [facility] [address] [facility] [place] [address], [facility] [phone] * (ABNORMAL) C-Reactive Protein (05/15/2025 12:11 PM EDT) Pathologist [facility] CRP 6.2(H) 0.0 - 5.0 mg/L 05/15/2025 12:11 PM EDT [facility] 05/15/2025 12:1 1 PM EDT 05/15/2025 12:12 PM EDT Nimesh Chase [facility] CHEMISTRY ORDERABLES Lou l Result Performing Organization Address [facility]/ZIP Co de Phone Number [facility] [address] [facility] [place] [address], [facility] [phone] * (ABNORMAL) CBC (05/15/2025 12:11 PM EDT) Pathologist [facility] WBC 3.8 3.5 - 11.0 k/uL 05/15/2025 12:11 PM EDT [facility] RBC 3.54(L) 4.00 - 5.20 m/uL 05/15/2025 12:11 PM EDT [facility] Hemoglobin 9.9(L) 12.0 - 16.0 g/dL 05/15/2025 12:11 PM EDT [facility] Hematocrit 32.3(L) 36.0 - 46.0 % 05/15/2025 12:11 PM EDT [facility] MCV 91.2 80.0 - 100.0 fL 05/15/2025 12:11 PM EDT [facility] MCH 28.0 26.0 - 34.0 pg 05/15/2025 12:11 PM EDT [facility] MCHC 30.7(L) 31.0 - 37.0 g/dL 05/15/2025 12:11 PM EDT [facility] RDW 19.4(H) 12.1 - 15.2 % 05/15/2025 12:11 PM EDT [facility] Platelets 154 140 - 450 k/uL 05/15/2025 12:11 PM EDT [facility] MPV 11.7 6.0 - 12.0 fL 05/15/2025 12:11 PM EDT [facility] 05/15/2025 12:1 1 PM EDT 05/15/2025 12:12 PM EDT Nimesh Chase DP HEMATOLOGY ORDERABLES Fin al Result [facility] [address] [place] [address], [facility] [phone] * (ABNORMAL) Basic Metabolic Panel (05/15/2025 12:11 PM EDT) Sodium 138 135 - 144 mmol/L 05/15/2025 12:11 PM EDT [facility] Potassium 4.4 3.7 - 5.3 mmol/L 05/15/2025 12:11 PM EDT [facility] Chloride 104 98 - 107 mmol/L 05/15/2025 12:11 PM EDT [facility] CO2 22 20 - 31 mmol/L 05/15/2025 12:11 PM EDT [facility] Anion Gap 12 9 - 17 mmol/L 05/15/2025 12:11 PM EDT [facility] Glucose 131(H) 70 - 99 mg/dL 05/15/2025 12:11 PM EDT [facility] BUN 17 6 - 20 mg/dL 05/15/2025 12:11 PM EDT [facility] Creatinine 1.3(H) 0.5 - 0.9 mg/dL 05/15/2025 12:11 PM EDT [facility] Est, Glom Filt Rate 52(L) >60 mL/min/1.7 3m2 05/15/2025 12:11 PM EDT [facility] Comment: These results are not intended [...] therapy that affects renal tubular secretion. Calcium 9.3 8.6 - 10.4 mg/dL 05/15/2025 12:11 PM EDT [facility] 05/15/2025 12:1 1 PM EDT 05/15/2025 12:12 PM EDT Nimesh Chase DPM CHEMISTRY ORDERABLES Lou cole Result [facility] [address] [place] [address], [facility] [phone] documented in this encounter Visit Diagnoses Not on filedocumented in this encounter Additional Health Concerns Infection Onset Date Last Indicated Resolved Time MRSA Comment:Blood and spine 08/201805/16/2016 04/04/2025 MDRO (multi-drug resistant o rganism) Comment:E. Coli urine 02/202305/02/2022 05/02/2022 documented as of this encounter Care Teams Paper Control Clerk Relationship Specialty Start Date End Date Back, MD Felipe [address] [place] [address] PCP - General Internal Medicine 11/14/11 documented as of this encounter
--- OUTSIDE RECORDS SUMMARY | 2025-05-17 10:25 | XMS_ITS | Clinical Summary ---
Author Organization [facility] Address [address] [place] [address] Phone Care Team Providers Care Manager Pest Name Role Phone Unavailable Primary Care Provider [...]
--- OUTSIDE RECORDS SUMMARY | 2025-05-17 10:26 | XMS_ITS | Encounter Summary ---
Author Organization [facility] Address [address] [facility], [address] [place] [address] Care Team Providers Care Manager Of Photography Name Role Phone Felipe Adam MD Primary Care Provider [phone] Encounter Details Date Type Department Care Team (Late st Contact Info) Description 04/06/2025 Results Follow-Up [facility] Emergency Department [address] [place] [address] Jessica Burton RN Social History Tobacco Use Types Packs/Day Years Used Date Smoking Tobacco: Never Passive Smoke Exposure: Never Smokeless Tobacco: Never Alcohol Use Standard Drinks/Week Comments No 0 (1 standard drink = 0.6 oz pur e alcohol) [facility] Utilities Answer Date Recorded In the past 12 months has [employer] electric, gas, oil, or water company threatened to shut off services in your [...] place to sleep or slept in a mcc (including now)? No 05/08/2024 Housing Stability Vital Sign Answer Rikki e Recorded In the last 12 months, was t here a time when you were not able to pay the mortgage or rent on time? No 11/15/2024 In the past 12 months, how m any times have you moved where you were living? 0 11/15/2024 At any time in the past 12 m [facility], were you homeless or living in a mcc (including now)? No 11/15/2024 Food Insecurity Answer [...] Description 07/27/2025 11:00 AM EDT Office Visit [facility] Primary [facility] [address] [place] [address] Felipe Adam MD [address] [place] [address] Return in about 3 months (around 07/19/2025). documented as of this encounter Visit Diagnoses Not on filedocumented in this encounter Additional Health Concerns Infection Onset Date Last Indicated Resolved Time MRSA Comment:Blood and spine 08/201805/16/2016 04/04/2025 MDRO (multi-drug resistant o rganism) Comment:E. Coli urine 02/202305/02/2022 05/02/2022 documented as of this encounter Care Teams Manager Of Photography Relationship Specialty Start Date End Date Felipe Adam MD [address] [place] [address] PCP - General Internal Medicine 11/14/11 documented as of this encounter
--- OUTSIDE RECORDS SUMMARY | 2025-05-17 10:26 | XMS_ITS | Encounter Summary ---
Author Organization [facility] Address [address] [facility], [address] [place] [address] Care Team Providers Care Juvenile Correctional Officer Name Role Phone Jair, Felipe MELENDREZ Primary Care Provider [phone] Encounter Details Date Type Department Care Team (Late st Contact Info) Description 01/26/2014 PAT Telephone [facility] PRE ADMIT [address] [place] [phone] Pushpa Harding, RN Social History Tobacco Use [...] Description 07/27/2025 11:00 AM EDT Office Visit [facility] [address] [place] [address] Felipe Adam MD [address] [place] [address] Return in about 3 months (around 07/19/2025). [...] documented as of this encounter Care Teams Juvenile Correctional Officer Relationship Specialty Start Date End Date Felipe Adam MD [address] [place] [address] PCP - General Internal Medicine 11/14/11 documented as of this encounter
--- OUTSIDE RECORDS SUMMARY | 2025-05-17 10:26 | XMS_ITS | Encounter Summary ---
Author Organization [facility] Address [address], [address] [place] [address] Care Team Providers Care Dress Finisher Name Role Phone Felipe Adam MD Primary Care Provider [phone] Encounter Details Date Type Department Care Team (Latest Contact Info) Description 04/29/2022 Community Orders [facility] Heather Forbes MD [address] [place] [address] Interstitial nephritis chronic (Primary Dx); Stage 3a [...] Description 07/27/2025 11:00 AM EDT Office Visit [address] [address] Felipe Adam MD [address] [place] [address] Return in about 3 months (around 07/19/2025). documented as of this encounter Results * Protein / Creatinine Ratio, Urine (05/20/2022 10:18 AM EDT) Total Protein, Urine 7 mg/dL 05/20/2022 10:18 AM EDT [facility] Comment:No normal range esta blished. Creatinine, Ur 97.1 28.0 - 217.0 mg/dL 05/20/2022 10:18 AM EDT [facility] Urine Total Protein Creatinine Ratio 0.07 0.00 - 0.20 05/20/2022 10:18 AM EDT [facility] URINE SPECIMEN / Unknown 05/20/2022 10:18 AM EDT 05/20/2022 10:19 AM EDT us Heather Forbes MD URINE ORDERABLES Final Result [facility] [address] [place] [address], [facility] [phone] [facility] [address] [place] [address], [facility] [phone] * PTH, Intact (05/20/2022 10:15 AM EDT) Pth Intact 39.91 15.0 - 65.0 pg/mL 05/20/2022 10:15 AM EDT [facility] Comment: SAMPLES FROM PATIENTS ROUTINELY RECEIVING HIGH DOSE BIOTIN THERAPY MAY SHOW FALSELY DEPRESSED RESULTS. ADDITIONAL INFORMATION MAY BE REQUIRED FOR DIAGNOSIS. BLOOD SPECIMEN / Unknown 05/20/2022 10:15 AM EDT 05/20/2022 10:18 AM EDT Heather Forbes MD CHEMISTRY ORDERABLES Final Re sult Performing Organization Address City/[facility]/ZIP Co de Phone Number [facility] [address] [facility] [place] [address], [facility] [phone] [facility] [address] [place] [address], [facility] [phone] * Vitamin D 25 Hydroxy (05/20/2022 10:15 AM EDT) Vit D, 25-Hydroxy 35.3 >29.9 ng/mL 05/20/2022 10:15 AM EDT [facility] Comment: Reference Range: Vitamin D status Range Deficiency <20 ng/mL Mild Deficiency 20-30 ng/mL Sufficiency 30-100 ng/mL Toxicity >100 ng/mL BLOOD SPECIMEN / Unknown 05/20/2022 10:15 AM EDT 05/20/2022 10:18 AM EDT Heather Forbes MD CHEMISTRY ORDERABLES Final Re sult Performing Organization Address City/[facility]/ZIP Co de Phone Number [facility] [address] [facility] [place] [address], [facility] [phone] [facility] [address] [place] [address], [facility] [phone] * Magnesium (05/20/2022 10:15 AM EDT) Magnesium 2.1 1.6 - 2.6 mg/dL 05/20/2022 10:15 AM EDT [facility] BLOOD SPECIMEN / Unknown 05/20/2022 10:15 AM EDT 05/20/2022 10:18 AM EDT Heather Forbes MD CHEMISTRY ORDERABLES Final Re sult Performing Organization Address City/[facility]/ZIP Co de Phone Number [facility] [address] [phone] * (ABNORMAL) Hemoglobin and Hematocrit (05/20/2022 10:15 AM EDT) Hemoglobin 11.1(L) 12.0 - 16.0 g/dL 05/20/2022 10:15 AM EDT [facility] Hematocrit 33.3(L) 36 - 46 % 05/20/2022 10:15 AM EDT [facility] BLOOD SPECIMEN / Unknown 05/20/2022 10:15 AM EDT 05/20/2022 10:18 AM EDT Heather Forbes MD HEMATOLOGY ORDERABLES Final R esult Performing Organization Address [facility]/ZIP Co de Phone Number [facility] [address] [place] [address], [facility] [phone] * (ABNORMAL) Renal Function Panel (05/20/2022 10:15 AM EDT) Glucose 125(H) 70 - 99 mg/dL 05/20/2022 10:15 AM EDT [facility] BUN 18 6 - 20 mg/dL 05/20/2022 10:15 AM EDT [facility] Creatinine 1.13(H) 0.50 - 0.90 mg/dL 05/20/2022 10:15 AM EDT [facility] BUN/Creatinine Ratio 16 9 - 20 05/20/2022 10:15 AM EDT [facility] Calcium 10.0 8.6 - 10.4 mg/dL 05/20/2022 10:15 AM EDT [facility] Albumin 4.4 3.5 - 5.2 g/dL 05/20/2022 10:15 AM EDT [facility] Phosphorus 3.8 2.6 - 4.5 mg/dL 05/20/2022 10:15 AM EDT [facility] Sodium 144 135 - 144 mmol/L 05/20/2022 10:15 AM EDT [facility] Potassium 4.3 3.7 - 5.3 mmol/L 05/20/2022 10:15 AM EDT [facility] Chloride 105 98 - 107 mmol/L 05/20/2022 10:15 AM EDT [facility] CO2 30 20 - 31 mmol/L 05/20/2022 10:15 AM EDT [facility] Anion Gap 9 9 - 17 mmol/L 05/20/2022 10:15 AM EDT [facility] GFR Non- 53(L) >60 mL/min 05/20/2022 10:15 AM EDT [facility] GFR >60 >60 mL/min 05/20/2022 10:15 AM EDT [facility] GFR Comment 05/20/2022 10:15 AM T [facility] Comment: Average GFR for 40-49 years old: 99 mL/min/1.73sq m Chronic Kidney Disease: <60 mL/min/1.73sq m Kidney failure: <15 mL/min/1.73sq m eGFR calculated using average adult body mass. Additional eGFR calculator available at: http://www.[employer].Fluorofinder/multiple_crcl_2012.htm BLOOD SPECIMEN / Unknown 05/20/2022 10:15 AM EDT 05/20/2022 10:18 AM EDT us Heather Forbes MD CHEMISTRY ORDERABLES Final Re sult [facility] [address] 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 Coli urine 02/202305/02/2022 05/02/2022 documented as of this encounter Care Teams Dress Finisher Relationship Specialty Start Date End Date Back, MD Felipe [address] [place] [address] PCP - General Internal Medicine 11/14/11 documented as of this encounter
--- OUTSIDE RECORDS SUMMARY | 2025-05-17 10:26 | XMS_ITS | Encounter Summary ---
Author Organization [facility] Address [address], [address] [place] [address] Care Team Providers Care Supervisor [employer] Name Role Phone Felipe Adam MD Primary Care Provider [phone] Reason for Visit * Reason Comments Medication Refill Encounter Details Date Type Department Care Team ([facility] Contact Info) Description 06/23/[address] [address] Felipe Adam MD [address] [place] [address] Medication Refill Social History Tobacco Use Types [...] Upcoming Encounters Date Type Department Care Team ([facility] Contact Info) Description 07/27/2025 11:00 AM EDT Office Visit [address] [address] Felipe Adam MD [address] [place] [address] Return in about 3 months (around 07/19/2025). [...] documented as of this encounter Care Teams Supervisor [employer]om Relationship Specialty Start Date End Date Back, MD Felipe [address] [place] [phone] PCP - General Internal Medicine 11/14/11 documented as of this encounter
--- OUTSIDE RECORDS SUMMARY | 2025-05-17 10:26 | XMS_ITS | Encounter Summary ---
Author Organization [facility] Address [address], [address] [place] [address] Care Team Providers Care Clinical Laboratory Science Professor Name Role Phone Felipe Adam MD Primary Care Provider [phone] Reason for Visit * Reason Comments Medication Refill Fluconazole Encounter Details Date Type Department Care Team (Late st Contact Info) Description 08/18/2019 [facility] [address] [place] [address] Dav Moralez MD [address] [place] [address] Medication Refill (Fluconazole) Social History Tobacco Use [...] AM EDT Office Visit [facility] [address] [place] [phone] Felipe Adam MD [address] [place] [address] Return in about 3 months (around 07/19/2025). [...] documented as of this encounter Care Teams Clinical Laboratory Science Professor Relationship Specialty Start Date End Date Felipe Adam MD [address] [place] [phone] PCP - General Internal Medicine 11/14/11 documented as of this encounter
--- OUTSIDE RECORDS SUMMARY | 2025-05-17 10:26 | XMS_ITS | Encounter Summary ---
Author Organization [facility] Address [address], [address] [place] [address] Care Team Providers Care Hog Confinement System Manager Name Role Phone Felipe Adam MD Primary Care Provider [phone] Reason for Visit * Reason Comments Medication Refill Fluconazole Encounter Details Date Type Department Care Team (Late st Contact Info) Description 09/30/2019 [facility]. [address] [place] [address] Dav Moralez MD [address] [place] [address] Medication Refill (Fluconazole) Social History Tobacco Use [...] Visit [facility] [address] [place] [phone] Felipe Adam MD [address] [place] [address] Return in about 3 months (around 07/19/2025). [...] documented as of this encounter Care Teams Hog Confinement System Manager Relationship Specialty Start Date End Date Felipe Adam MD [address] [place] [phone] PCP - General Internal Medicine 11/14/11 documented as of this encounter
--- OUTSIDE RECORDS SUMMARY | 2025-05-17 10:27 | XMS_ITS | Encounter Summary ---
Author Organization [facility] Address [address], [address] [place] [address] Care Team Providers Care Conveyor Worker Name Role Phone Felipe Adam MD Primary Care Provider [phone] Encounter Details Date Type Department Care Team ([facility] st Contact Info) Description 04/25/2025 [facility] [address] [address] Felipe Adam MD [address] [place] [phone] Social History Tobacco Use Types Packs/Day Years Used Date Smoking Tobacco: Never Passive Smoke Exposure: Never Smokeless Tobacco: Never Alcohol Use Standard Drinks/Week Comments No 0 (1 standard drink = 0.6 oz pur e alcohol) [facility] Utilities Answer Date Recorded In the past 12 months has [employer], gas, oil, or water [employer] threatened to shut off services in your [...] time in the past 12 m [facility], were you homeless or living [...] Description 07/27/2025 11:00 AM EDT Office Visit [facility] [address] [place] [address] Felipe Adam MD [address] [place] [address] Return in about 3 months (around 07/19/2025). 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
--- OUTSIDE RECORDS SUMMARY | 2025-05-17 10:27 | XMS_ITS | Encounter Summary ---
Author Organization [facility] Address [address] [place] [address] Care Team Providers Care Oracle Financials Developer Name Role Phone Felipe Adam MD Primary Care Provider Reason for Visit * Reason Comments Medication Refill Encounter Details Date Type Department Care Team ([facility] Contact Info) Description 08/25/[address] [address] Felipe Adam MD [address] [place] [address] Medication Refill Social History Tobacco Use Types [...] Upcoming Encounters Date Type Department Care Team ([facility] Contact Info) Description 07/27/2025 11:00 AM EDT Office Visit [address] [address] Felipe Adam MD [address] [place] [address] Return in about 3 months (around 07/19/2025). [...] documented as of this encounter Care Teams [employer] Developer Relationship Specialty Start Date End Date Back, MD Felipe [address] [place] [phone] PCP - General Internal Medicine 11/14/11 documented as of this encounter
--- OUTSIDE RECORDS SUMMARY | 2025-05-17 10:27 | XMS_ITS | Clinical Summary ---
Author Organization [facility] Address [address], [address] [place] [address] Care Team Providers Care Steel Analyst Name Role Phone Felipe Adam MD Primary Care Provider [phone] Allergies Active Allergy Reactions Criticality Noted Date [...] morning 90 tablet 1 04/18/20 25 Active fluconazole (DIFLUCAN) 150 MG tabletIndications: Vaginal yeast [...] Overview: Added automatically from request for surgery [id number] Basal cell carcinoma of skin of face [...] Encounters Date Type Department Care Team Description 05/15/2025 12:07 PM EDT - 05/15/2025 11:59 PM EDT Hospital Encounter [facility] Laboratory [address] [place] [address] Arrived Discharge Disposition: Home or Self Care 05/04/[address] [address] Felipe Adam MD Referral - General (Infectious disease referral canceled) 04/25/[address] [address] Felipe Adam MD 04/24/[address] [address] Felipe Adam MD Yeast Infection 04/18/2025 9:45 AM EDT Office Visit [address] [address] Felipe Adam MD Stage 3a chronic kidney disease (HCC) (Primary Dx); Pre-diabetes 04/17/2025 Results Follow-Up [facility] Internal Medicine [address] [place] [address] Felipe Adam MD 04/14/2025 9:44 AM EDT - 04/14/2025 11:59 PM EDT Hospital Encounter [facility] Laboratory [address] [facility] [address] Hyperglycemia; Mixed hyperlipidemia; Chronic renal impairment, stage 3a (HCC) Discharge Disposition: Home or Self Care 04/14/2025 Abstract [facility] [address] [place] [address] Felipe Adam MD 04/13/2025 10:00 AM EDT Office Visit [facility] [address] [place] [address] Felipe Adam MD 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) (Primary Dx); Cellulitis of right toe; Skin ulcer of second toe of right foot with necrosis of muscle (HCC) 04/11/2025 11:03 AM EDT - 04/13/2025 11:59 PM EDT Hospital Encounter [facility] MRI [address] [place] [address] Dandy Sánchez DPM Pain in right foot Discharge Disposition: Home or Self Care 04/11/2025 Orders Only [facility] MRI [address] [place] [address] Micky Lauren Jr., MD Ulcer of right foot, unspecified ulcer stage (HCC) (Primary Dx) 04/10/2025 Transcribe Orders [facility] [address] [place], [place] [id number] Dandy Sánchez DPM Pain in right foot (Primary Dx) 04/06/2025 Results Follow-Up [facility] Emergency Department [address] [place] [address] Jessica Burton RN 04/04/2025 9:07 PM EDT - 04/05/2025 12:14 AM EDT Emergency [facility] Emergency Department [address] [place] [address] Severo Goodwin MD Pressure injury of deep tissue of toe, unspecified laterality (Primary Dx) Discharge Disposition: Home or Self Care 04/04/2025 Travel 04/03/2025 Refill [facility] [address] [place] [address] Jasmyne Hays APRN - CNP Medication Refill 02/15/2025 11:15 AM EDT - 02/17/2025 11:59 PM EDT Hospital Encounter [facility] Mammography [address] [place] [address] Felipe Adam MD Encounter for screening mammogram for malignant neoplasm of breast Discharge Disposition: Home or Self Care from Last 3 Months Immunizations Immunization Administration [...] = 0.6 oz pur e alcohol) [facility] Utilities Answer Date Recorded In the past 12 months has [employer] gas, oil, or water lifeaction games threatened to shut off services in your [...] place to sleep or slept in a halfway (including now)? No 05/08/2024 Housing Stability Vital Sign Answer Rikki e Recorded In the last 12 months, was t here a time when you were not able to pay the mortgage or rent on time? No 11/15/2024 In the past 12 months, how m any times have you moved where you were living? 0 11/15/2024 At any time in the past 12 m [facility], were you homeless or living in a halfway (including now)? No 11/15/2024 Food Insecurity Answer [...] Description 07/27/2025 11:00 AM EDT Office Visit [address] [address] [place] [address] Return in about 3 months (around 07/19/2025). [...] (Diabetes, CKD 3-4, OR last GFR 15-59) 05/15/2026 05/15/2025, 04/14/2025, 04/11/2025, Additional history exists Breast cancer screen 02/15/2027 02/15/2025 Colonoscopy 12/10/2027 12/09/2017 Colorectal Cancer Screen 12/10/2027 Lipids 04/14/2030 04/14/2025, 11/05, 11/14/2024, Additional history exists Hepatitis C screen Completed 06/13/2014 Cervical cancer screen Discontinued Pap smear Discontinued 09/24/2021, 03/20/2017 HIV screen Completed 04/12/2022 Diabetes screen Discontinued 04/14/2025, 11/05, 05/02/2024, Additional history exists HPV (without or with Pap) Discontinued HPV vaccine (No Doses Required) Completed Hepatitis A vaccine Aged Out No longe [...] Associated Diagnosis Comments MORPHOLOGY CHECK Routine 05/15/2025 12:11 PM EDT SEDIMENTATION RATE Routine 05/15/2025 12:11 PM EDT C-REACTIVE PROTEIN Routine 05/15/2025 12:11 PM EDT CBC Routine 05/15/2025 12:11 PM EDT BASIC METABOLIC PANEL Routine 05/15/2025 12:11 PM EDT COMPREHENSIVE METABOLIC PANEL Routine 04/14/2025 9:54 AM [...] EDT CULTURE, WOUND (WITH GRAM STAIN) Stat [employer] Label print 04/04/2025 10:51 PM EDT XR TOE RIGHT (MIN 2 VIEWS) STAT 04/04/2025 10:36 PM EDT XR TOE LEFT (MIN 2 VIEWS) STAT 04/04/2025 10:36 PM EDT C-REACTIVE PROTEIN STAT 04/04/2025 10:00 PM EDT SEDIMENTATION RATE STAT 04/04/2025 10:00 PM EDT BRAIN NATRIURETIC PEPTIDE STAT 04/04/2025 10:00 PM EDT CBC WITH AUTO DIFFERENTIAL STAT 04/04/2025 9:57 PM EDT [facility] BRIAN DIGITAL SCREEN BILATERAL Routine 02/15/2025 11:51 AM EDT Encounter for screening mammogram for malignant neoplasm of breast HIV SCREEN Routine 04/12/2022 2:09 PM EDT Encounter for screening for HIV PAP SMEAR Routine 09/24/2021 HM COLONOSCOPY Routine 12/09/2017 HEPATITIS C ANTIBODY Routine 06/13/2014 8:54 AM EDT from Last 3 Months or Most Recently Relevant to Health Maintenance Results * MORPHOLOGY CHECK (05/15/2025 12:11 PM EDT) Morphology MODERATE ANISOCYTOSIS 05/15/2025 12:11 PM EDT [facility] 05/15/2025 12:1 1 PM EDT 05/15/2025 12:12 PM EDT Nimesh Chase DPM CHEMISTRY ORDERABLES Lou l Result [facility] [address] [place], [place] [address] [place] [address] * Sedimentation Rate (05/15/2025 12:11 PM EDT) Only the most recent of2 resultswithin the time period is included. Sed Rate, Automated 19 0 - 20 mm/Hr 05/15/2025 12:11 PM EDT [facility] 05/15/2025 12:1 1 PM EDT 05/15/2025 12:12 PM EDT Nimesh Chase DPM HEMATOLOGY ORDERABLES Fin al Result Performing Organization Address [facility]/ZIP Co de Phone Number [facility] [address] [place] [address], [facility] [phone] * (ABNORMAL) CBC (05/15/2025 12:11 PM EDT) WBC 3.8 3.5 - 11.0 k/uL 05/15/2025 12:11 PM EDT [facility] RBC 3.54(L) 4.00 - 5.20 m/uL 05/15/2025 12:11 PM EDT [facility] Hemoglobin 9.9(L) 12.0 - 16.0 g/dL 05/15/2025 12:11 PM EDT [facility] Hematocrit 32.3(L) 36.0 - 46.0 % 05/15/2025 12:11 PM EDT [facility] MCV 91.2 80.0 - 100.0 fL 05/15/2025 12:11 PM EDT [facility] MCH 28.0 26.0 - 34.0 pg 05/15/2025 12:11 PM EDT [facility] MCHC 30.7(L) 31.0 - 37.0 g/dL 05/15/2025 12:11 PM EDT [facility] RDW 19.4(H) 12.1 - 15.2 % 05/15/2025 12:11 PM EDT [facility] Platelets 154 140 - 450 k/uL 05/15/2025 12:11 PM EDT [facility] MPV 11.7 6.0 - 12.0 fL 05/15/2025 12:11 PM EDT [facility] 05/15/2025 12:1 1 PM EDT 05/15/2025 12:12 PM EDT Nimesh Chase DPM HEMATOLOGY ORDERABLES Fin al Result [facility] [address] [place] [address], [facility] [phone] * (ABNORMAL) C-Reactive Protein (05/15/2025 12:11 PM EDT) Only the most recent of2 resultswithin the time period is included. CRP 6.2(H) 0.0 - 5.0 mg/L 05/15/2025 12:11 PM EDT [facility] 05/15/2025 12:1 1 PM EDT 05/15/2025 12:12 PM EDT Nimesh Chase DPM CHEMISTRY ORDERABLES Lou l Result [facility] [address] [place] [address], [facility] [phone] * (ABNORMAL) Basic Metabolic Panel (05/15/2025 12:11 PM EDT) Sodium 138 135 - 144 mmol/L 05/15/2025 12:11 PM EDT [facility] Potassium 4.4 3.7 - 5.3 mmol/L 05/15/2025 12:11 PM EDT [facility] Chloride 104 98 - 107 mmol/L 05/15/2025 12:11 PM EDT [facility] CO2 22 20 - 31 mmol/L 05/15/2025 12:11 PM EDT [employer] [facility] Anion Gap 12 9 - 17 mmol/L 05/15/2025 12:11 PM EDT [facility] Glucose 131(H) 70 - 99 mg/dL 05/15/2025 12:11 PM EDT [facility] BUN 17 6 - 20 mg/dL 05/15/2025 12:11 PM EDT [facility] Creatinine 1.3(H) 0.5 - 0.9 mg/dL 05/15/2025 12:11 PM EDT [facility] Est, Glom Filt Rate 52(L) >60 mL/min/1.7 3m2 05/15/2025 12:11 PM EDT [facility] Comment: These results are not intended [...] - 10.4 mg/dL 05/15/2025 12:11 PM EDT [facility] 05/15/2025 12:1 1 PM EDT 05/15/2025 12:12 PM EDT Nimesh Chase DPM CHEMISTRY ORDERABLES Lou cole Result [facility] [address] [place] [address], [facility] [phone] * Insulin, Total (04/14/2025 9:54 AM EDT) Insulin Comment FASTING 04/14/2025 9:54 AM EDT [employer] [facility] Insulin 25.0 mU/L 04/14/2025 9:54 AM EDT [facility] Insulin Reference Range: 04/14/2025 9:54 AM EDT [facility] Comment: Fastin.6-24.9 30 min: 20-112 60 min: 29-88 90 min: 26-84 120 min: 22-79 Blood BLOOD SPECIMEN / Unknown 04/14/2025 9:54 AM EDT 04/14/2025 9:55 AM EDT Felipe Adam MD CHEMISTRY ORDERABLES Final Resul t Performing Organization Address [facility] Phone Number [facility] [address] [place] [address], [facility] [phone] [address] [place] [address], [facility] [phone] * Hemoglobin A1C (04/14/2025 9:54 AM EDT) Hemoglobin A1C 5.9 4.0 - 6.0 % 04/14/2025 9:54 AM EDT [facility] Estimated Avg Glucose 123 mg/dL 04/14/2025 9:54 AM EDT [facility] Comment: The ADA and AACC recommend providing the estimated average glucose result to permit better patient understanding of their HBA1c result. Blood BLOOD SPECIMEN / Unknown 04/14/2025 9:54 AM EDT 04/14/2025 9:55 AM EDT Felipe Adam MD CHEMISTRY ORDERABLES Final Resul t Performing Organization Address [facility] Phone Number [facility] [address] [place] [address], [facility] [phone] [facility] [address] [place] [address], [facility] [phone] * (ABNORMAL) Lipid Panel (04/14/2025 9:54 AM EDT) Cholesterol, Total 158 0 - 199 mg/dL 04/14/2025 9:54 AM EDT [facility] Comment: Cholesterol Guidelines: <200 Desirable 200-240 Borderline >240 Undesirable HDL 31(L) >40 mg/dL 04/14/2025 9:54 AM EDT [facility] Comment: HDL Guidelines: <40 Undesirable 40-59 Borderline >59 Desirable LDL Cholesterol 59 0 - 100 mg/dL 04/14/2025 9:54 AM EDT [facility] Comment: LDL Guidelines: <100 Desirable 100-129 Near to/above Desirable 130-159 Borderline >159 Undesirable Direct (measured) LDL and calculated LDL are not interchangeable tests. Chol/HDL Ratio 5.1(H) <5.0 04/14/2025 9:54 AM EDT [facility] Triglycerides 341(H) <150 mg/dL 04/14/2025 9:54 AM EDT [facility] Comment: Triglyceride Guidelines: <150 Desirable 150-199 Borderline 200-499 High >499 Very high Based on AHA Guidelines for fasting triglyceride, July 2012. VLDL 68(H) 1 - 30 mg/dL 04/14/2025 9:54 AM EDT [facility] Blood BLOOD SPECIMEN / Unknown 04/14/2025 9:54 AM EDT 04/14/2025 9:55 AM EDT us Felipe Adam MD CHEMISTRY ORDERABLES Final Resul t [facility] [address] [place] [address], [facility] [phone] [place] [address] [place] [id number], [facility] [phone] * (ABNORMAL) Comprehensive Metabolic Panel (04/14/2025 9:54 AM EDT) Sodium 139 135 - 144 mmol/L 04/14/2025 9:54 AM EDT [facility] Potassium 4.1 3.7 - 5.3 mmol/L 04/14/2025 9:54 AM EDT [facility] Chloride 99 98 - 107 mmol/L 04/14/2025 9:54 AM EDT [facility] CO2 26 20 - 31 mmol/L 04/14/2025 9:54 AM EDT [facility] Anion Gap 14 9 - 17 mmol/L 04/14/2025 9:54 AM EDT [facility] Glucose 114(H) 70 - 99 mg/dL 04/14/2025 9:54 AM EDT [facility] BUN 18 6 - 20 mg/dL 04/14/2025 9:54 AM EDT [facility] Creatinine 1.4(H) 0.5 - 0.9 mg/dL 04/14/2025 9:54 AM EDT [facility] Est, Glom Filt Rate 47(L) >60 mL/min/1.7 3m2 04/14/2025 9:54 AM EDT [facility] Comment: These results are not intended [...] - 10.4 mg/dL 04/14/2025 9:54 AM EDT [facility] Total Protein 7.2 6.4 - 8.3 g/dL 04/14/2025 9:54 AM EDT [facility] Albumin 4.2 3.5 - 5.2 g/dL 04/14/2025 9:54 AM T [facility] Albumin/Globulin Ratio 1.4 1.0 - 2.5 04/14/2025 9:54 AM EDT [facility] Total Bilirubin 0.5 0.3 - 1.2 mg/dL 04/14/2025 9:54 AM EDT [facility] Alkaline Phosphatase 109(H) 35 - 104 U/L 04/14/2025 9:54 AM EDT [facility] ALT 23 5 - 33 U/L 04/14/2025 9:54 AM T [facility] AST 22 <32 U/L 04/14/2025 9:54 AM T [facility] Blood BLOOD SPECIMEN / Unknown 04/14/2025 9:54 AM EDT 04/14/2025 9:55 AM EDT us Felipe Adam MD CHEMISTRY ORDERABLES Final Resul t [facility] [address] [place], [place] [address] [phone] * MRI FOOT RIGHT W WO CONTRAST [...] although again superimposed infectionbe difficult to include. us Dandy Sánchez DP IMG MRI ORDERABLES Lou coel Result * (ABNORMAL) BUN & Creatinine (04/11/2025 11:16 AM EDT) BUN 15 6 - 20 mg/dL 04/11/2025 11:16 AM EDT [facility] Creatinine 1.3(H) 0.5 - 0.9 mg/dL 04/11/2025 11:16 AM EDT [facility] Est, Glom Filt Rate 52(L) >60 mL/min/1.7 3m2 04/11/2025 11:16 AM EDT [facility] Comment: These results are not intended [...] 6 AM EDT 04/11/2025 11:17 AM EDT aDndy Sánchez DPM CHEMISTRY ORDERABLES nal Result [facility] [address] [place] [address], [facility] [phone] * (ABNORMAL) Culture, Wound (with Gram Stain) (04/04/2025 10:51 PM EDT) Specimen Description .TOE 04/04/2025 10:51 PM EDT [facility] Direct Exam NO NEUTROPHILS SEEN 04/04/2025 10:51 PM EDT [facility] Direct Exam NO ORGANISMS SEEN 2024 10:51 PM EDT [facility] Culture METHICILLIN RESISTANT STAPHYLOCOCCUS AUREUS LIGHT GROWTH(A) 04/04/2025 10:51 PM EDT [facility] Culture NORMAL SKIN JOSE 025 10:51 PM EDT [facility] SPECIMEN FROM WOUND / Unknown 04/04/2025 10:51 [...] vancomycin BACTERIAL SUSCEPTIBILITY PANEL SONIA 1: Sensitive us Severo Goodwin MD MICROBIOLOGY - GENERAL ORDERABL ES Final Result [facility] [address] [place] [address], [facility] [phone] [facility] [address] [id number] [phone] * XR TOE RIGHT (MIN 2 VIEWS) [...] DIAGNOSTIC IMAGING ORDERABL ES Final Result * Brain Natriuretic Peptide (04/04/2025 10:00 PM EDT) [facility] NT Pro-BNP 262 <300 pg/mL 04/04/2025 10:00 PM EDT [facility] Comment: An age-independent cutoff point of 300 pg/ml has a 98% negative predictive value excluding acute heart failure. Blood BLOOD SPECIMEN / Unknown 04/04/2025 10:00 PM EDT 04/04/2025 10:02 PM EDT us Severo Goodwin MD CHEMISTRY ORDERABLES Final Resu lt [facility] [address] [place] [place] [address], [facility] [phone] * (ABNORMAL) CBC with Auto Differential (04/04/2025 9:57 PM EDT) [facility] WBC 6.1 3.5 - 11.0 k/uL 04/04/2025 9:57 PM EDT [facility] RBC 3.56(L) 4.00 - 5.20 m/uL 04/04/2025 9:57 PM EDT [facility] Hemoglobin 9.6(L) 12.0 - 16.0 g/dL 04/04/2025 9:57 PM T [facility] Hematocrit 30.0(L) 36.0 - 46.0 % 04/04/2025 9:57 PM [facility] MCV 84.3 80.0 - 100.0 fL 04/04/2025 9:57 PM [facility] MCH 27.0 26.0 - 34.0 pg 04/04/2025 9:57 PM T [facility] MCHC 32.0 31.0 - 37.0 g/dL 04/04/2025 9:57 PM [facility] RDW 18.4(H) 12.1 - 15.2 % 04/04/2025 9:57 PM [facility] Platelets 186 140 - 450 k/uL 04/04/2025 9:57 PM [facility] MPV 11.7 6.0 - 12.0 fL 04/04/2025 9:57 PM [facility] Neutrophils % 68 47 - 75 % 04/04/2025 9:57 PM [facility] Lymphocytes % 23 15 - 40 % 04/04/2025 9:57 PM [facility] Monocytes % 6 4 - 8 % 04/04/2025 9:57 PM [facility] Eosinophils % 1 0 - 5 % 04/04/2025 9:57 PM [facility] Basophils % 0 0 - 2 % 04/04/2025 9:57 PM [facility] Immature Granulocytes % 2 0 - 5 % 04/04/2025 9:57 PM [facility] Neutrophils Absolute 4.09 2.5 - 7.0 k/uL 04/04/2025 9:57 [facility] Lymphocytes Absolute 1.39 1.00 - 4.80 k/uL 04/04/2025 9:57 PM [facility] Monocytes Absolute 0.37 0.00 - 1.00 k/uL 04/04/2025 9:57 PM EDT [facility] Eosinophils Absolute 0.07 0.00 - 0.40 k/uL 04/04/2025 9:57 PM EDT [facility] Basophils Absolute 0.02 0.00 - 0.20 k/uL 04/04/2025 9:57 PM EDT [facility] Immature Granulocytes Absolute 0.13 0.00 - 0.30 k/uL 04/04/2025 9:57 PM EDT [facility] Blood BLOOD SPECIMEN / Unknown 04/04/2025 9:57 PM EDT 04/04/2025 10:02 PM EDT Severo Goodwin MD HEMATOLOGY ORDERABLES Final Res ult [facility] [address] [place] [address], [facility] [phone] * [facility] BRIAN DIGITAL SCREEN BILATERAL (02/15/2025 11:51 AM EDT) Anatomical Region Laterality Modality Breast Bilateral Mammography 02/15/2025 11:5 1 AM EDT Impressions 02/28/2025 12:55 PM EDT OVERALL ASSESSMENT: BIRADS: 1 Negative, no evidence of malignancy. A letter of notification will be mailed to the patient. Performing Facility: [facility] [address] [place] [address] Narrative 02/28/2025 12:55 PM EDT HISTORY: Screening. [...] Ag/Ab NONREACTIVE NONREACTIVE 04/12/2022 2:09 PM EDT [facility] Comment: No laboratory evidence of HIV infection. If acute HIV infection is suspected, consider testing for HIV-1 RNA. BLOOD SPECIMEN / Unknown 04/12/2022 2:09 PM EDT 04/12/2022 2:11 PM EDT Result [facility] Felipe Adam MD IMMUNOLOGY ORDERABLES Final Resu lt Performing Organization Address City/[facility]/ZIP Co de Phone Number [facility] [address] [place] [address], [facility] [phone] [address] [phone] * PAP SMEAR (09/24/2021) Result [facility] Historical Provider HEALTH MAINTENANCE Final Result * HM COLONOSCOPY (12/09/2017) Result [facility] Provider HEALTH MAINTENANCE Final Result * Hepatitis C Antibody (06/13/2014 8:54 AM EDT) Hepatitis C Ab NONREACTIVE NR 9:44 PM EDT [facility] Comment: The hepatitis C procedure used [...] ordering HCV RNA by PCR. Performed at [facility] [employer] [address] [place] [address] [id number] [phone] 06/13/2014 8:54 AM EDT 06/13/2014 8:55 AM EDT Result [facility] Doug Klein MD IMMUNOLOGY ORDERABLES Final R esult Performing Organization Address [facility]/ZIP Co de Phone Number [facility] [address] 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 Advance Directives * Full Code (Latest Code [...] 10:05 AM 03/05/2017 12:56 PM Care Teams Steel Analyst Relationship Specialty Start Date End Date Back, MD Felipe [address] [place] [address] PCP - General Internal Medicine 11/14/11
--- OUTSIDE RECORDS SUMMARY | 2025-05-17 10:27 | XMS_ITS | Patient Health Record ---
Author Organization [facility] [place] Address [address] [place] [address] Care Team Providers Care Clinical Data Management Manager Name Role Phone None, Unknown or Primary Care Provider Unavailab Frances Plascencia Unavailable [phone] Allergies Allergen (clinical drug ingredient) Drug/Non Drug Allergy documented on EMR Reaction Allergy Type Onset Date Status ChloraPrep One Step Unknown Drug Allergy Active Results Component Value Reference Range Notes MORPHX (Not yet reviewed by provider) Interpretation: Performing Lab:[facility], [address] [place] [address] PH:[phone] Notes/Report: Morphology MODERATE ANISOCYTOSIS BASIC METABOLIC PANL (Not ye t reviewed by provider) Interpretation: Performing Lab:[facility], [address] [place] [address] PH:[phone] Notes/Report: NA (Sodium) 138 135-144 mmol/L K (Potassium) 4.4 3.7-5.3 mmol/L Chloride 104 98-107 mmol/L CO2 22 20-31 mmol/L Anion Gap 12 9-17 mmol/L Glucose 131 70-99 mg/dL BUN (Urea N) 17 6-20 mg/dL Creatinine 1.3 0.5-0.9 mg/dL eGFR 52 >60 mL/min/1.73m2 These results are not intended for use [...] that affects renal tubular secretion. Calcium 9.3 8.6-10.4 mg/dL ESR (Not yet reviewed by pro vider) Interpretation: Performing Lab:[facility], [address] [place] [address] PH:[phone] Notes/Report: Sedimentation Rate 19 0-20 mm/Hr CRP (Not yet reviewed by pro vider) Interpretation: Performing Lab:[facility], [address] [place] [address] PH:[phone] Notes/Report: C-Reactive Protein 6.2 0.0-5.0 mg/L CBC (COMPLETE BLOOD COUNT) * (Not yet reviewed by provider) Interpretation: Performing Lab:[facility], [address] [place] [address] PH:[phone] Notes/Report: WBC Count 3.8 3.5-11.0 k/uL RBC Count 3.54 4.00-5.20 m/uL Hemoglobin 9.9 12.0-16.0 g/dL Hematocrit 32.3 36.0-46.0 % MCV 91.2 80.0-100.0 fL MCH 28.0 26.0-34.0 pg MCHC 30.7 31.0-37.0 g/dL RDW 19.4 12.1-15.2 % Platelet Count 154 140-450 k/uL MPV 11.7 6.0-12.0 fL XR foot LT min 3V (Not yet r eviewed by provider) Interpretation: Performing Lab: Notes/Report: Source Facility: [place] [address] XRay Report Signed Patient: CELINA GASPAR MR#: [id number] : 1980 Acct:[id number] Age/Sex: 44 / F ADM Date: 11/18/24 Loc: EC Attending Dr: Frances Chase D.P.M. Ordering Physician: Frances Chase D.P.M. Date of Service: 11/18/24 Procedure(s): XR foot LT min 3V Accession Number(s): [id number] cc: Frances Chase D.P.M.; Physician,Non-Staff Matheus [address] [address] Patient Name: CELINA GASPAR MRN: [id number] date: 1980 Sex: F Assigned Patient Location: Current Patient Location: Accession/Order Number: [id number] Exam Date: 11/18/2024 10:55 Report Date: 11/18/2024 [...] Signed By: 11/18/24 1346 DD/ 1344 TD/TT: Data Warehouse Administrator: [place] [address] XRay Report Signed Patient: IAN GASPAR MR#: [id number] : 1980 Acct:[id number] Age/Sex: 44 / F ADM Date: 11/18/24 Loc: EC Attending Dr: Frances Chase D.P.M. Ordering Physician: Frances Chase D.P.M. Date of Service: 11/18/24 Procedure(s): XR mirza t LT min 3V Accession Number(s): [id number] cc: Frances Chase D.P.M.; Physician,Non-Staff Matheus [address] [address] Patient Name: CELINA GASPAR MRN: [id number] date: 1980 Sex: F Assigned Patient Location: Current Patient Location: Accession/Order Numb er: [id number] Exam Date: 11/18/2024 10:55 Report Date: 11/18/2024 13:44 At the request of: FRANCES CHASE Procedure: XR foot L T min 3V PROCEDURE: XR foot L T min 3V HISTORY: LEFT FOOT PAIN COMPARISON: [...] Signed By: 11/18/24 1346 DD/ 1344 TD/TT: Data Warehouse Administrator: XR foot LT min 3V (Not yet r eviewed by provider) Interpretation: Performing Lab: Notes/Report: Source Facility: [place] [address] [place] [address] XRay Report Signed Patient: CELINA GASPAR MR#: [id number] : 1980 Acct:[id number] Age/Sex: 44 / F ADM Date: 11/01/24 Loc: RAD Attending Dr: Frances Chase D.P.M. Ordering Physician: Frances Chase D.P.M. Date of Service: 11/01/24 Procedure(s): XR foot LT min 3V Accession Number(s): [id number] cc: Frances Chase D.P.M.; Physician,Non-Staff Matheus [place] [id number] Patient Name: CELINA GASPAR MRN: [id number] date: 1980 Sex: F Assigned Patient Location: RAD Current Patient Location: Accession/Order Number: [id number] Exam Date: 11/01/2024 10:45 Report Date: 11/02/2024 [...] Signed By: 11/02/24 1312 DD/ 1309 TD/TT: Data Warehouse Administrator: [place] [address] XRay Report Signed Patient: IAN GASPAR MR#: [id number] : 1980 Acct:[id number] Age/Sex: 44 / F ADM Date: 11/01/24 Loc: RAD Attending Dr: Frances Chase D.P.M. Ordering Physician: Frances Chase D.P.M. Date of Service: 11/01/24 Procedure(s): XR mirza t LT min 3V Accession Number(s): [id number] cc: Frances Chase D.P.M.; Physician,Non-Staff Matheus The [address] [address] Patient Name: CELINA GASPAR MRN: [facility]:[id number] date: 1980 Sex: F Assigned Patient Location: [facility] Current Patient Location: Accession/Order Numb er: [id number] Exam Date: 11/01/2024 10:45 Report Date: 11/02/2024 13:09 At the request of: FRANCES CHASE Procedure: XR foot L T min 3V PROCEDURE: XR foot L T min 3V HISTORY: Left Foot Pain COMPARISON: [...] Signed By: 11/02/24 1312 DD/ 1309 TD/TT: Data Warehouse Administrator: XR foot LT min 3V (Not yet r eviewed by provider) Interpretation: Performing Lab: Notes/Report: Source Facility: [place] [address] XRay Report Signed Patient: CELINA GASPAR MR#: [id number] : 1980 Acct:[id number] Age/Sex: 44 / F ADM Date: 09/20/24 Loc: RAD Attending Dr: Frances Chase D.P.M. Ordering Physician: Frances Chase D.P.M. Date of Service: 09/20/24 Procedure(s): XR foot LT min 3V Accession Number(s): [id number] cc: Frances Chase D.P.M.; Physician,Non-Staff Matheus The [place] [address] Patient Name: CELINA GASPAR MRN: [id number] date: 1980 Sex: F Assigned Patient Location: RAD Current Patient Location: Accession/Order Number: [id number] Exam Date: 09/20/2024 10:45 Report Date: 09/21/2024 [...] Rosales Hinson M.D. Signed By: 09/21/2459 DD/ TD/TT: Data Warehouse Administrator: [place] [address] XRay Report Signed Patient: IAN GASPAR MR#: [id number] : 1980 Acct:[id number] Age/Sex: 44 / F ADM Date: 09/20/24 Loc: RAD Attending Dr: Frances Chase D.P.M. Ordering Physician: Frances Chase D.P.M. Date of Service: 09/20/24 Procedure(s): XR mirza t LT min 3V Accession Number(s): [id number] cc: Frances Chase D.P.M.; Physician,Non-Staff Matheus [address] [address] Patient Name: CELINA GASPAR MRN: [facility]:[id number] date: 1980 Sex: F Assigned Patient Location: RAD Current Patient Location: Accession/Order Numb er: [id number] Exam Date: 10:45 Report Date: 09/21/2024 06:56 At the request of: FRANCES CHASE Procedure: XR foot L T min 3V PROCEDURE: XR foot L T min 3V HISTORY: Left Foot Pain COMPARISON: XR foot left 08/23/2024 FINDINGS: BONES:Stable midfoot surgical changes and fusion of the midfoot and hindfoot. No appreciable hardw are fracture or loosening or change in alignment. SOFT TISSUES:Mild so ft tissue swelling. EFFUSION:None visible. OTHER: Negative. XR/XR foot LT min 3V IMPRESSION: 1. Stable chronic changes of Charcot joint and subsequent osseous resections and fusion. No appreciable hardware failure or change in alignment. Electronically authenticated by: ROSALES HINSON Date: 09/21/2024 06:56 Dictated By: Rosales Hinson M.D. Signed By: 09/21/2459 DD/ 5 TD/TT: Data Warehouse Administrator: XR foot LT min 3V (Not yet r eviewed by provider) Interpretation: Performing Lab: Notes/Report: Source Facility: [place] [address] XRay Report Signed Patient: CELINA GASPAR MR#: [id number] : 1980 Acct:[id number] Age/Sex: 44 / F ADM Date: 08/23/24 Loc: RAD Attending Dr: Frances Chase D.P.M. Ordering Physician: Frances Chase D.P.M. Date of Service: 08/23/24 Procedure(s): XR foot LT min 3V Accession Number(s): [id number] cc: Frances Chase D.P.M.; Physician,Non-Staff Matheus The [place] [address] Patient Name: CELINA GASPAR MRN: [id number] date: 1980 Sex: F Assigned Patient Location: RAD Current Patient Location: Accession/Order Number: [id number] Exam Date: 08/23/2024 10:38 Report Date: 08/25/2024 [...] M.D. Signed By: 08/25/24616 DD/ 3 TD/TT: Data Warehouse Administrator: [place] [address] XRay Report Signed Patient: IAN GASPAR MR#: [id number] : 1980 Acct:[id number] Age/Sex: 44 / F ADM Date: 08/23/24 Loc: RAD Attending Dr: Frances Chase D.P.M. Ordering Physician: Frances Chase D.P.M. Date of Service: 08/23/24 Procedure(s): XR mirza t LT min 3V Accession Number(s): [id number] cc: Frances Chase D.P.M.; Physician,Non-Staff Matheus [place] [id number] Patient Name: CELINA GASPAR MRN: [id number] date: 1980 Sex: F Assigned Patient Location: RAD Current Patient Location: Accession/Order Numb er: [id number] Exam Date: 10:38 Report Date: 08/25/2024 06:14 At the request of: FRANCES CHASE Procedure: XR foot L T min 3V PROCEDURE: XR foot L T min 3V HISTORY: LEFT FOOT P AIN ; recent fall COMPARISON: XR foot left 07/27/2024 FINDINGS: BONES:Stable advance d degenerative changes the midfoot and surgical resection of several mid foot bones and mechanical fusion of the talocalcaneal and medial aspect of the midfoo t. No appreciable hardware fracture loosening. No bone fracture dislocation. SOFT TISSUES:Mild so ft tissue swelling. EFFUSION:None visible. OTHER: Negative. XR/XR foot LT min 3V IMPRESSION: 1. Grossly stable advanced degenerative changes consistent with Charcot joint. 2. Stable surgical changes without evidence of hardware failure or change in alignment. Electronically authenticated by: ROSALES HINSON Date: 08/25/2024 06:14 Dictated By: Rosales Hinson M.D. Signed By: 08/25/24616 DD/ 3 TD/TT: Data Warehouse Administrator: XR foot LT min 3V (Not yet r eviewed by provider) Interpretation: Performing Lab: Notes/Report: Source Facility: [place] [address] XRay Report Signed Patient: CELINA GASPAR MR#: [id number] : 1980 Acct:[id number] Age/Sex: 44 / F ADM Date: 07/27/24 Loc: RAD Attending Dr: Frances Chase D.P.M. Ordering Physician: Frances Chase D.P.M. Date of Service: 07/27/24 Procedure(s): XR foot LT min 3V Accession Number(s): [id number] cc: Frances Chase D.P.M.; Physician,Non-Staff Matheus The [place] [address] Patient Name: CELINA GASPAR MRN: [id number] date: 1980 Sex: F Assigned Patient Location: [facility] Current Patient Location: Accession/Order Number: [id number] Exam Date: 07/27/2024 10:48 Report Date: 07/31/2024 [...] M.D. Signed By: 07/31/24721 DD/ 8 TD/TT: Data Warehouse Administrator: [place] [address] XRay Report Signed Patient: IAN GASPAR MR#: [id number] : 1980 Acct:[id number] Age/Sex: 44 / F ADM Date: 07/27/24 Loc: RAD Attending Dr: Frances Chase D.P.M. Ordering Physician: Frances Chase D.P.M. Date of Service: 07/27/24 Procedure(s): XR mirza t LT min 3V Accession Number(s): [id number] cc: Frances Chase D.P.M.; Physician,Non-Staff Matheus [place] [id number] Patient Name: CELINA GASPAR MRN: [id number] date: 1980 Sex: F Assigned Patient Location: RAD Current Patient Location: Accession/Order Numb er: [id number] Exam Date: 10:48 Report Date: 07/31/2024 07:19 At the request of: FRANCES CHASE Procedure: XR foot L T min 3V PROCEDURE: XR foot L T min 3V HISTORY: LEFT FOOT PAIN COMPARISON: [...] M.D. Signed By: 07/31/24721 DD/ 8 TD/TT: Data Warehouse Administrator: Reason For Referral Reason Referral to [facility] Diagnosis 1 Charcot's joint, lef t ankle and foot (M14.672) Referral Organization [facility] (PODIATRY) Referring Provider First Name Frances Referring [...] Problem Status W/U Status Risk Notes Problem 51944981 Type 2 diabetes mellitus with diabetic polyneuropathy (E11.42) Active confirmed Problem 76746682 Hereditary and idiopathic neuropathy, unspecified (G60.9) Active confirmed Problem 599598171 Charcot's joint, left ankle and foot (M14.672) Active confirmed High Problem 391977915 Primary osteoarthritis, 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) Active confirmed Problem 708104738 Other acquired deformities of left foot (M21.6X2) Active confirmed High Problem 543150167 Contracture, 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) Active confirmed Problem 395192896 Pain in left ankle and joints of left foot (M25.572) Active confirmed Problem 738226785089799 Pain in left mirza t (M79.672) Active confirmed Problem 47914719 Disruption of external operation (surgical) wound, not elsewhere classified, initial encounter (T81.31XA) Active confirmed Problem Polyneuropathy due to type 2 diabetes mellitus (719793879) Type 2 diabetes mellitus with diabetic polyneuropathy (E11.42) Active confirmed Problem Chronic ulcer of ankle (683973940) 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) Active confirmed Problem Non-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 with other specified severity (L97.428) Active confirmed Problem Skin ulcer associated with diabetes mellitus (726862955) Controlled type 2 diabetes mellitus with other skin ulcer, without long-term current use of insulin (E11.622) Active confirmed Vital Signs Heart Rate 88 /min 11/18/2024 Temperature 97.2 degrees Fahrenheit 11/18/2024 Oximetry 96 % 11/18/2024 Height 62 in 11/18/2024 Weight 200 lbs 11/18/2024 BMI 36.58 kg/m2 11/18/2024 Encounters Encounter Location Date Provider Diagnosis [facility] ([facility]) [address] [place] [address] [place] [address] 07/01/2024 Frances Chase [facility] ([facility]) [address] [place] [address] 08/04/2024 Frances Chase [facility] ([facility]) [address] [place] [address] [place] [address] 11/18/2024 Frances Chase Pseudarthrosis after fusion or arthrodesis M96.0 ; Charcot's joint, left ankle and foot M14.672 and Pain in left foot M79.672 [facility] ([facility]) [address] [place] [address] [place] [address] 07/27/2024 Frances Chase Pseudarthrosis after fusion or arthrodesis M96.0 ; Charcot's joint, left ankle and foot M14.672 and Pain in left foot M79.672 [facility] ([facility]) [address] [place] [address] [place] [address] 08/23/2024 Frances Chase Pain in left foot M79.672 ; Charcot's joint, left ankle and foot M14.672 and 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 [facility] ([facility]) [address] [place] [address] [place] [address] 09/20/2024 Frances Chase Pseudarthrosis after fusion or arthrodesis M96.0 ; Charcot's joint, left ankle and foot M14.672 ; Hereditary and idiopathic neuropathy, 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 and Pain in left foot M79.672 [facility] ([facility]) [address] [place] [address] [place] [address] 11/01/2024 Frances Velázquezjoanie Charcot's joint, lef t ankle and foot [...] XR Foot LT (3 views) * 11/18/2024 CBC (COMPLETE BLOOD COUNT) * 05/15/2025 CRP 05/15/2025 ESR 05/15/2025 BASIC METABOLIC PANL 05/15/2025 XR foot LT min 3V 07/30/2023 XR foot LT min 3V 07/31/2024 XR foot LT min 3V 08/25/2024 XR foot LT min 3V 09/21/2024 XR foot LT min 3V 11/02/2024 XR foot LT min 3V 11/18/2024 MORPHX 05/15/2025 Insurance Providers Payer Name Payer Address Payer Phone Subscriber Number Group Number Insured Name Patient Relationship to Insured Coverage Start Date Coverage End Date [facility] [id number] [place], [place] [id number] [phone] [id number] Celina Gaspar Self - patient is the [...]
--- OUTSIDE RECORDS SUMMARY | 2025-05-17 10:27 | XMS_ITS | Encounter Summary ---
Author Organization [facility] Address [address] [place] [address] Care Team Providers Care Phototypesetting Equipment Monitor Name Role Phone Alcides Adam MD Primary Care Provider [phone] Reason for Visit * Reason Comments Med Refill Encounter Details Date Type Department Care Team (Late st Contact Info) Description 07/20/2023 Refill [facility] [address] [address] Trace Casas MD [address] [facility] [address] Villegas [address] [place] [place] [phone] Idiopathic progressive polyneuropathy Social History Tobacco Use [...] Care Team (Late st Contact Info) Description 05/23/2025 4:00 PM EDT Office Visit [facility] [address] [facility] [address] [place] [address] Nash Block MD [address] [facility] [address] [id number] 05/24/2025 11:30 AM EDT Office Visit [facility] [address] [facility] [address] [place] [address] Jenine Barajas, SEWER PIPE OFFBEARER-EMPLOYMENT AND CLAIMS AIDE [address] [facility] [place], [place] [phone] documented as of this encounter Visit Diagnoses Diagnosis Idiopathic progressive polyneuropathy documented in this encounter Care Teams Phototypesetting Equipment Monitor Relationship Specialty Start Date End Date Back, MD Alcides [address] [place] [address] PCP - General Family Medicine 12/08/24 documented as of this encounter
--- OUTSIDE RECORDS SUMMARY | 2025-05-17 10:27 | XMS_ITS | Clinical Summary ---
Author Organization [facility] Address [address] [place] [address] Care Team Providers Care Medical Scientific Liaison Name Role Phone Back, Alcides MELENDREZ Primary Care Provider [phone] Allergies No known active allergies Medications Cetirizine [...] (09/29/2017): Added automatically from request for surgery [id number] Basal cell carcinoma of skin of face [...] series) 1998 CERVICAL CANCER SCREENING DISCUSSION 2000 HPV VACCINE (1 - 3-dose SCDM series) 2006 LIPID SCREENING 2019 MAMMOGRAM SCREENING DISCUSSION 2019 COLORECTAL CANCER SCREENING DISCUSSION 2024 COVID-19 VACCINE (1 - 2023-2 5 season) 2024 TETANUS 09/08/2024 09/08/2014 INFLUENZA VACCINE (#1) 2025 TDAP (ADULT) Completed 09/08/2014 PNEUMOCOCCAL VACCINE SERIES Aged Out No longer eligible based on patient's age to complete this topic Insurance Care Teams Medical Scientific Liaison Relationship Specialty Start Date End Date Back, MD Alcides [address] [place] [address] PCP - General Internal Medicine 07/31/17
--- OUTSIDE RECORDS SUMMARY | 2025-05-17 10:27 | XMS_ITS | Encounter Summary ---
Author Organization [facility] Address [address] [facility] [address], [address] [place] [address] Care Team Providers Care Webfocus Developer Name Role Phone Felipe Adam MD Primary Care Provider [phone] Encounter Details Date Type Department Care Team (Late st Contact Info) Description 06/20/2022 Transcribe Orders [facility] [address] [place], [place] [id number] Dandy Sánchez, DPMónica [address] [facility] [place] [phone] Pain of foot, unspecified laterality (Primary Dx); [...] Description 07/27/2025 11:00 AM EDT Office Visit [address] [address] Felipe [place] MD [address] [place] [address] Return in about 3 months (around 07/19/2025). [...] documented as of this encounter Care Teams Webfocus Developer Relationship Specialty Start Date End Date Felipe [place] MD [address] [place] [address] PCP - General Internal Medicine 11/14/11 documented as of this encounter
--- OUTSIDE RECORDS SUMMARY | 2025-05-17 10:27 | XMS_ITS | Clinical Summary ---
Author Organization [facility] Address [address] [place] [address] Care Team Providers Care Service Desk Team Lead Name Role Phone Alcides [place] MD Primary Care Provider [phone] Allergies Active Allergy Reactions Criticality Noted Date [...] Orders: Ambulatory referral to Neurology Epidural abscess ([facility]) 08/20/2018 Septic arthritis 08/20/2018 Abdominal pain 05/04/2018 Pure hyperglyceridemia 05/04/2018 Pyelonephritis 05/04/2018 Neoplasm of uncertain behavior of skin 8 Peripheral neuropathy 12/01/2017 Basal cell carcinoma of skin of face 09/16/2017 Overview (03/08/2023): Added automatically from request for surgery [id number] Overview: Added automatically from request for surgery [id number] Mixed hyperlipidemia 03/19/2017 Carpal tunnel syndrome of [...] Office Visit [facility] [address] [place] [address] Dandy Wasserman, DPMónica MRSA (methicillin resistant staph aureus) culture positive (Primary Dx); Right foot pain; Skin ulcer of toe of right foot with fat layer exposed (HCC); Idiopathic progressive polyneuropathy; Infection of toe; Charcot arthropathy of midfoot; Ulcer of left foot, limited to breakdown of skin (HCC); Closed nondisplaced fracture of second metatarsal bone of right foot, initial encounter 04/20/2025 Bamboo flowsheet [facility] [address] [place] [address] Dandy Wasserman, DPM 04/20/2025 Travel 04/19/2025 Travel 04/12/2025 Results Follow-Up [facility] [address] [place] [address] Dandy Wasserman, INDER 04/12/2025 Clinisync Result Encounter [facility] External Department Unsolicited Dandy Wasserman DPM 04/11/2025 Telephone [facility] [address] [place] [address] Dandy Wasserman, INDER 04/11/2025 Clinisync Result Encounter [facility] External Department Unsolicited Dandy Wasserman, INDER 04/06/2025 5:10 PM EDT Ancillary Procedure [facility] [address] [place] [address] 04/06/2025 4:30 PM EDT Office Visit [facility] [address] [place] [address] Dandy Wasserman DPM Right foot pain (Primary Dx); Skin ulcer of toe of right foot with fat layer exposed (HCC); Infection of toe; Idiopathic progressive polyneuropathy; Generalized edema 04/06/2025 Bamboo flowsheet [facility] [address] [facility] [place] [place] [address] Dandy Wasserman DPM 04/06/2025 Travel 03/14/2025 12:00 PM EDT Office Visit [facility] [address] [facility] [address] [place] [address] Nash Block MD BUCK (obstructive sleep apnea) (Primary Dx); Claustrophobia ; Hypersomnia 03/14/2025 Bamboo flowsheet [facility] [address] [facility] [place] [address] Nash Block MD 03/14/2025 Travel from Last 3 Months Family History [...] PM EDT Office Visit [facility] [place] [facility] [facility] [address] [facility] [address] [place] [address] Nash Block MD [address] [facility] [address] [place] [address] 05/24/2025 11:30 AM EDT Office Visit [facility] [address] [facility] [address] [place] [address] Jennie Barajas APRN-ARMED CUSTOM PROTECTION OFFICER [address] [facility] [place] [address] Procedures Procedure Name Priority Date/Time Associated Diagnosis [...] Mcarthur MD 04/12/25 Final result Dandy Wasserman DP [facility] Final Result * (ABNORMAL) MHPT [...] disruption 1-2mm possible. No bone density changes us Dandy Wasserman DPM IMG XR PROCEDURES Final Result from Last 3 Months Insurance [facility] Care Teams Service Desk Team Lead Relationship Specialty Start Date End Date Jair, MD Alcides [address] [place] [address] PCP - General Family Medicine 12/08/24
--- OUTSIDE RECORDS SUMMARY | 2025-05-17 10:27 | XMS_ITS | Continuity of Care Document ---
Author Organization [facility] Address [address] [place] [address] Phone [phone] Care Team Providers Care Supervisor Ornamental Ironworking Name Role Phone Back, Alcides MELENDREZ Care Team Information Industrial Electrician Journeyman [phone] Problems Active Problems Provider Date Chronic kidney disease stage 3 Nate Villar Onset: 06/09/2014 Chronic glomerulonephritis Doug Klein M.D. O nset: 06/09/2014 Non-steroidal anti-inflammatory agent Duog carlson M.D. Onset: 06/09/2014 Pyelonephritis Heather Forbes [...] Test Result H/L Range Note .Magnesium 05/10/2024 [place] .Magnesium 2.2 .Urine Protein/Creat. Random 05/10/2024 [place] .Urine Protein Random 9 .Urine Creatini ne Random 132.0 .Urine Prot/Cre at Ratio 0.07 .Renal Panel 05/10/2024 [place] .Albumin 4.2 .Calcium 9.2 .Carbon Dioxide 25 .Chloride 101 .Phosphorus 3.8 .Potassium 4.0 .Sodium 141 .BUN 19 .GFR 52 High 20 .Creatinine-LC 1.3 .Urinalysis-Rout ine 05/10/2024 [place] Ua Specific Swan 1.020 Ua PH Test Strip 5.0 Ua Color yellow Ua Appearance clear Ua Protein trace Ua Glucose negative Ua Ketones negative Ua Bilirubin negative Ua Urobilinogen normal Ua Nitrite negative Ua Occult Blood negative .Renal Panel 05/17/2023 [place] .Albumin 4.1 .Calcium 9.5 .Carbon Dioxide 29 .Chloride 101 .Phosphorus 3.0 .Potassium 4.3 .Sodium 137 .BUN 17 .GFR >60 High 20 .Creatinine-LC 1.1 .Urine Protein/Creat. Random 05/17/2023 [place] .Urine Protein Random 10 .Urine Creatini ne Random 146.1 .Urine Prot/Cre at Ratio 0.07 .Ipth 05/17/2023 [place] .Ipth 47.1 .Vitamin D, 25 Hydroxy 05/17/2023 [place] .Vitamin D, 25 Hydroxy 53.1 .T-Sat-LC 05/20/2022 [place] .T-Sat-LC 0.18 .Tibc-LC 05/20/2022 [place] .Tibc-LC 263 .Ferritin 05/20/2022 [place] .Ferritin 164 .Iron 05/20/2022 [place] .Iron 48 .Transferrin-LC 05/20/2022 [place] .Transferrin-LC 280 .V Ipth-Vitamin D 05/20/2022 [place] .Ipth 39.91 .Vitamin D, 25 Hydroxy 35.3 .Magnesium 05/20/2022 [place], [place] [phone] .Magnesium 2.1 .Urine Protein/Creat. Random 05/20/2022 [place], [place] [phone] .Urine Protein Random 7 .Urine Creatini ne Random 97.1 .Urine Prot/Cre at Ratio 0.07 .Hemoglobin And Hematocrit 05/20/2022 [place], [place] [phone] .Hemoglobin Blood 11.1 .Hematocrit 33.3 .Renal Panel 05/20/2022 [place] .Albumin 4.4 .Calcium 10.0 .Carbon Dioxide 30 .Chloride 105 .Phosphorus 3.8 .Potassium 4.3 .Sodium 144 .BUN 18 .GFR 53 High 20 .GFR 53 High 20 .Creatinine-LC 1.13 .Renal Panel (Other Labs) 05/21/2021 [place], [place] [phone] .Albumin 4.2 .Calcium 9.2 .Carbon Dioxide 25 .Chloride 103 .Creatinine-LC 1.18 .Phosphorus 3.7 .Sodium 138 .BUN 19 .GFR 50 High 20 .Potassium 4.2 .Urine Protein/Creat. Random 05/21/2021 [place], [place] [phone] .Urine Protein Random 7 .Urine Creatini ne Random 115.7 .Magnesium 05/21/2021 [place] .Magnesium 2.2 .Urinalysis-Rout ine 05/21/2021 [place] Ua Specific Swan 1.020 Ua PH Test Strip 5.0 Ua Color YELLOW Ua Appearance CLEAR Ua Protein TRACE Ua Glucose NEGATIVE Ua Ketones NEGATIVE Ua Urobilinogen NORMAL Ua Occult Blood NEGATIVE .Urine Protein/Creat. Random 05/25/2020 [place] .Urine Protein Random 8 .Urine Creatini ne Random 101.2 .Urine Prot/Cre at Ratio 0.08 .Ua 05/25/2020 [place] Ua Appearance clear Ua Bilirubin - Ua Blood - Ua Color yellow Ua Glucose 100mg/dl Ua Leuko - Ua Nitrite - Ua PH Test Strip 6.0 Ua Protein - Ua Specific Swan 1.020 Ua Urobilinogen - .Renal Panel 05/25/2020 [place] .Albumin 4.4 .Calcium 10.1 .Carbon Dioxide 26 .Chloride 104 .Creatinine-LC 1.37 .Phosphorus 87 .Sodium 140 .BUN 24 .GFR-LC 43 High 20 .Potassium 4.6 .Ua 06/17/2019 [place] Ua Appearance HAZY Ua Bacteria 1+ Ua Bilirubin NEG Ua Blood NEG Ua Color YELLOW Ua Epithelial Cells QL 2-5 Ua Glucose NEG Ua Ketones NEG Ua Leuko NEG Ua Nitrite NEG Ua PH Test Strip 6.0 Ua Protein TRACE Ua Specific Swan 1.025 Ua Urobilinogen NORMAL Ua WBC 0-2 .Urine Protein/Creat. Random 06/17/2019 [place] .Urine Protein Random 18 .Urine Creatini ne Random 228.2 .Urine Prot/Cre at Ratio 0.08 .Magnesium 06/17/2019 [place], [place] [phone] .Magnesium 2.3 .Hemoglobin And Hematocrit 06/17/2019 [place] .Hemoglobin Blood 12.1 .Hematocrit 35.4 .Renal Panel 06/17/2019 [place] .Albumin 4.3 .Calcium 10.4 .Carbon Dioxide 24 .Chloride 103 .Creatinine-LC 1.27 .Phosphorus 3.0 .Sodium 140 .BUN 18 .GFR-LC 47 High 20 .Potassium 3.8 .Renal Panel -LC 04/14/2018 [place] .Albumin 3.7 .Calcium 8.9 .Carbon Dioxide 30 .Chloride 101 .Creatinine-LC 1.28 .Phosphorus 3.6 .Sodium 140 .BUN 19 .GFR-LC 47 High 20 .Potassium 4.1 .Urine Protein/Creat. Random 04/14/2018 [place] .Urine Protein Random 7 .Urine Creatini ne Random 100.7 .Urine Prot/Cre at Ratio 0.07 .CBC W/Differential 04/14/2018 [place] .White Blood Count 8.6 .Red Blood Count 4.40 .Hemoglobin Blood 13.3 .Hematocrit 39.4 MCH (Corpuscula r Hemoglobin) 30.2 MCHC (Corpuscul ar Hemog Conc) 33.7 RDW 15.6 .Platelet Count Blood 232 Neutrophils 59 Fluid Lymphocytes 31 Monocytes 6 Fluid Body Eosinophils 3 Basophils % 1 Absolute Basophils 0.10 Absolute Eosinophils 0.20 Absolute Lymphocytes 2.70 Absolute Monocytes 0.50 .Ipth 04/14/2018 [place], [place] [phone] .Ipth 63.56 Xray 11/18/[address], Abdomen, W/ Contrast SEE REPORT Xray 11/18/[address], Abdomen, W/ Contrast CORTICAL CYST L KIDY .Urinalysis-Cult ure 11/17/2017 [facility] [phone] Culture Urine NO SIGNIFICANT H .Urinalysis-Rout ine 11/17/2017 [facility] [phone] Ua Specific Swan 1.014 Ua PH Test Strip 6.0 Ua [...] 54 High 20 .Urine Prot/Creat Ratio 02/17/2017 [place] .Urine Prot/Creat Ratio 0.07 Miscellaneous Other 02/17/2017 [place] Misc Test - Put Test In Order completed .Renal Panel -LC 02/17/2017 [place] .Albumin 4.1 .Calcium 9.4 .Carbon Dioxide [...] ar Hemog Conc) 34.1 .Urinalysis-Rout ine 06/08/2015 [place] Ua Specific Swan 1.020 Ua PH Test Strip 5.0 Ua Color yellow Ua Appearance clear Ua Protein negative Ua Glucose negative Ua Bilirubin negative Ua Urobilinogen normal Ua Nitrite negative .Hemoglobin And Hematocrit 06/08/2015 [place] .Hemoglobin Blood 12.8 .Hematocrit 38.2 .Urine Protein/Creat. Random 06/08/2015 [place] .Urine Protein Random 13 .Urine Creatini ne Random 219.4 .Urine Prot/Cre at Ratio 0.05 Urine Culture 06/08/2015 [place] Culture Urine Routine see report .Renal Panel 06/08/2015 [place] .Albumin 4.0 .Calcium 8.9 .Carbon Dioxide 26 .Chloride 101 .Creatinine-LC 1.29 .Phosphorus 3.0 .Potassium 3.6 .Sodium 139 .BUN 14 .GFR-LC 47 High 20 .Ua 12/29/2014 [place], [place] [phone] Ua Appearance clear Ua Bilirubin negative Ua Blood trace Ua Color yellow Ua Epithelial Cells QL 2 to 5 Ua Glucose negative Ua Leuko negative Ua Nitrite negative Ua PH Test Strip 5.0 Ua Protein negative Ua RBC 0 to 2 Ua Specific Swan 1.020 Ua Urobilinogen normal .Renal Panel 12/29/2014 [place], [place] [phone] .Albumin 4.1 .Calcium 9.7 .Carbon Dioxide 30 .Chloride 102 .Creatinine-LC 1.50 .Phosphorus 4.2 .Potassium 4.1 .Sodium 142 .BUN 18 .GFR-LC 40 High 20 .Urine Protein/Creat. Random 12/29/2014 [place] .Urine Protein Random 6 .Urine Creatini ne Random 126.0 .Urine Prot/Cre at Ratio 0.05 .Renal Panel 12/06/2014 [place] .Albumin 4.0 .Calcium 9.2 .Carbon Dioxide 28 .Chloride 101 .Creatinine-LC 1.32 .Phosphorus 3.0 .Potassium 4.3 .Sodium 139 .BUN 17 .GFR-LC 46 High 20 .Urine Protein/Creat. Random 12/06/2014 [place] .Urine Protein Random 7 .Urine Creatini ne Random 196.8 .Urine Prot/Cre at Ratio 0.04 .Ua 12/06/2014 [place] Ua Appearance clear Ua Bacteria 1+ Ua Bilirubin negative Ua Blood trace Ua Color yellow Ua Epithelial Cells QL 2 to 5 Ua Glucose negative Ua Leuko negative Ua Nitrite negative Ua PH Test Strip 6.0 Ua Protein negative Ua RBC 2 to 5 Ua Specific Swan 1.020 Ua Urobilinogen normal .Complement C3 06/13/2014 [place], [place] [phone] .Complement C3 140 .Magnesium 06/13/2014 [place] .Magnesium 2.3 .Calcium 06/13/2014 [place] .Calcium 9.1 .Phosphorus 06/13/2014 [place] .Phosphorus 3.8 .Urine Protein 24HR 06/13/2014 [place] .Urine Protein Total 24H 63 .Urinalysis-Rout ine 06/13/2014 [place] Ua Specific Swan 1.015 Ua PH Test Strip 6.0 Ua Color YELLOW Ua Appearance CLEAR Ua Protein NEGATIVE Ua Glucose NEGATIVE Ua Bilirubin NEGATIIVE Ua Urobilinogen NORMAL Ua Nitrite NEGATIVE .V Ipth-Vitamin D 06/13/2014 [place] .Ipth 49.31 .Vitamin D, 25 Hydroxy 28.9 .Anca Panel-LC 06/13/2014 [place] .Anca-C 30 .Anca-P 7 .Urine Protein Elect Ran 06/13/2014 [place] Urine Interpretation NORMAL .GBM Antibody-LC 06/13/2014 [place] .Anti-GBM- 4 .Complement Total (CH50) 06/13/2014 [place] .Complement Total (CH50) 115 .Complement C4 06/13/2014 [place] .Complement C4 29 .Ipth 06/13/2014 [place] .Ipth 49.31 .Lipid Panel 06/13/2014 [place] .Cholesterol 41 .Cholester/HDL Ratio 5.6 High Density Lipoprotein 41 .LDL/HDL Ratio 58 .LDL Cholesterol 131 .Triglycerides 289 .Immunofixation- Urine 06/13/2014 [place] .Immunofixation-U rine NEGATIVE .Vitamin D, 25 Hydroxy 06/13/2014 [place] .Vitamin D, 25 Hydroxy 28.9 .Cryoglobulin 06/13/2014 [place] .Cryoglobulin 0 .Hepatitis B-Surface Antigen 06/13/2014 [place] .Hepatitis B-Surface Antigen NON REACTIVE .Hepatitis C 06/13/2014 [place] .Hepatitis C NON REACTIVE .Immunofixation- Serum 06/13/2014 [place] .Immunofixation-S genesis NEGATIVE .Hemoglobin And Hematocrit 06/13/2014 [place] .Hemoglobin Blood 13.0 .Hematocrit 37.9 .Urine Eosinophils Random 06/13/2014 [place] .Urine Eosinophils Random NONE SEEN .BUN 06/13/2014 [place] .BUN 18 .Creatinine-LC 06/13/2014 [place] .Creatinine-LC 1.27 .GFR-LC 06/13/2014 [place] .GFR-LC 58 High 20 .Sodium 06/13/2014 [place] .Sodium 138 .Potassium 06/13/2014 [place] .Potassium 4.4 .Chloride 06/13/2014 [place] .Chloride 103 .Carbon Dioxide 06/13/2014 [place] .Carbon Dioxide 27 .Renal Panel 05/30/2014 [facility] [phone] .Albumin 3.9 .Calcium 9.3 .Carbon Dioxide 27 .Chloride 101 .Creatinine-LC 1.41 .Potassium 3.6 .Sodium 136 .BUN 16 .GFR-LC 42 High 20 .GFR 51 High 20 .GFR 42 High 20 .Urinalysis-Rout ine 05/30/2014 [facility] [phone] Ua Specific Swan 1.030 Ua PH Test Strip 5.0 Ua [...] Provider Dx Diagnosis Office Visit 05/13/2024 1:00p [facility] SHUKRI Sebastian N11.9 Chronic tubulo-interstitial nephritis, unspecified N18.31 Chronic kidney disea se, stage 3a Office Visit 05/18/2023 11:00a [facility] Jerica Stokes N11.9 Chronic tubulo-interstitial nephritis, unspecified N18.31 Chronic kidney disea se, stage 3a D50.9 Iron deficiency anem ia, unspecified E55.9 Vitamin D deficiency , unspecified Office Visit 05/23/2022 11:00a [facility] Jerica Stokes N11.9 Chronic tubulo-interstitial nephritis, unspecified N18.31 Chronic kidney disea se, stage 3a D50.9 Iron deficiency anem ia, unspecified E55.9 Vitamin D deficiency , unspecified Office Visit 05/22/2021 1:30p [facility] Tequila Giles NP N11.9 Chronic tubulo-interstitial nephritis, unspecified N18.30 Chronic kidney disea se, stage 3 unspecified Office Visit 06/08/2020 11:20a [facility] Heather Forbes M.D. N11.9 Chronic tubulo-interstitial nephritis, unspecified N18.3 Chronic kidney disea se, stage 3 (moderate) Office Visit 06/22/2019 10:00a [facility] Heather Forbes M.D. N11.9 Chronic tubulo-interstitial nephritis, unspecified N18.3 Chronic kidney disea se, stage 3 (moderate) Office Visit 05/04/2018 10:20a [facility] Heather Forbes M.D. N11.9 Chronic tubulo-interstitial nephritis, unspecified N18.3 Chronic kidney disea se, stage 3 (moderate) Office Visit 03/13/2017 2:00p [facility] Heather Forbes M.D. N11.9 Chronic tubulo-interstitial nephritis, unspecified N18.3 Chronic kidney disea se, stage 3 (moderate) E78.1 Pure hyperglyceridem ia Office Visit 06/15/2015 1:00p [facility] Heather king M.D. 585.3 Chronic Kidney Disease Stage 3 582.89 Interstitial Nephrit is 530.81 Esophageal Reflux Office Visit 12/15/2014 1:00p [facility] BRENDEN Boyer 585.3 Chronic Kidney Disease Stage 3 582.89 Interstitial Nephrit is V58.64 Mc[facility] (Current)Us e Of Non-Steroid Antiinflammatories 530.81 Esophageal Reflux Office Visit 07/07/2014 11:40a [facility] Heather high M.D. 585.3 Chronic Kidney Disease Stage 3 582.89 Interstitial Nephrit is V58.64 Mc[facility] (Current)Us e Of Non-Steroid Antiinflammatories 530.81 Esophageal Reflux Office Visit 06/09/2014 1:00p [facility] Doug Elda ngo M.D. 585.3 Chronic Kidney Disease Stage 3 582.89 Interstitial Nephrit is V58.64 Mc[facility] (Current)Us e Of Non-Steroid Antiinflammatories 789.00 Pain [...] 05/23/2022 N11.9 Chronic tubulo-i nterstitial nephritis, unspecified Kike, Jerica 05/23/2022 N18.31 Chronic kidney disease, stag e 3a Kike, Jerica 05/23/2022 D50.9 Iron deficiency anemia, unsp ecified Kike, Jerica 05/23/2022 E55.9 Vitamin D deficiency, unspec ified Kike, Jerica 05/22/2021 N11.9 Chronic tubulo-i nterstitial nephritis, unspecified Heather Kamadana M.D. 05/22/2021 N11.9 Chronic tubulo-i nterstitial nephritis, unspecified Tequila N Wehr, POWER PLANT OPERATOR APPRENTICE 05/22/2021 N18.30 Chronic kidney disease, stag e 3 unspecified Heather Kamadana M.D. 05/22/2021 N18.30 Chronic kidney disease, stag e 3 unspecified Tequila N Wehr, POWER PLANT OPERATOR APPRENTICE 06/08/2020 N11.9 Chronic tubulo-i nterstitial nephritis, unspecified [...] Chronic Kidney Disease Stage 3 Cheryl Palomo, PATROL AGENT 12/15/2014 582.89 Interstitial Nephritis Cheryl Palomo, PATROL AGENT 12/15/2014 V58.64 Mcfp (Curren t)Use Of Non-Steroid Antiinflammatories Cheryl Palomo, PATROL AGENT 12/15/2014 530.81 Esophageal Reflux Cheryl liang, PATROL AGENT 07/07/2014 585.3 Chronic Kidney Disease Stage 3 Heather Forbes M.D. 07/07/2014 582.89 Interstitial Nephritis Polly Forbes M.D. 07/07/2014 V58.64 [facility] (Curren t)Use Of Non-Steroid Antiinflammatories Heather Forbes M.D. 07/07/2014 530.81 Esophageal Reflux Heather stevens M.D. 06/09/2014 585.3 Chronic Kidney Disease Stage 3 Doug Klein M.D. 06/09/2014 582.89 Interstitial Nephritis Kenroy Kelin M.D. 06/09/2014 V58.64 [facility] (Curren t)Use Of Non-Steroid Antiinflammatories Doug Klein M.D. 06/09/2014 789.00 Pain Abdominal Unspec Site S yasmin Klein M.D.
--- OUTSIDE RECORDS SUMMARY | 2025-05-17 10:27 | XMS_ITS | Encounter Summary ---
Author Organization [facility] Address [address] [place] [address] Care Team Providers Care Negative Notcher Name Role Phone Felipe Adam MD Primary Care Provider [phone] Encounter Details Date Type Department Care Team (Late st Contact Info) Description 05/01/2015 Abstract [facility]ariat[facility] [address] [place] [phone] Hali Gallegos MA Social History Tobacco Use [...] Description 10/12/2025 10:30 AM EST Office Visit [facility] [address] [facility] [place] [address] Dimas Adair MD [facility] [address] [place] [phone] documented as of this encounter Visit Diagnoses Not on filedocumented in this encounter Care Teams Negative Notcher Relationship Specialty Start Date End Date Back, MD Felipe [address] [id number] PCP - General Internal Medicine 03/26/15 documented as of this encounter
--- OUTSIDE RECORDS SUMMARY | 2025-05-17 10:27 | XMS_ITS | Clinical Summary ---
Author Organization [facility] Address [address] [place] [address] Care Team Providers Care Energy Operations Vice President Name Role Phone Felipe Adam MD Primary Care Provider [phone] Allergies Active Allergy Reactions Criticality Noted Date [...] Description 10/12/2025 10:30 AM EST Office Visit [facility] [address] [facility] [facility] [place] [address] Dimas Adair MD [address] [place] [id number] Health Maintenance Due Date Last Done Comments [...] Screen Negative Negative 10/21/2017 9:47 AM EST [facility] Blood BLOOD SPECIMEN / Unknown 10/20/2017 5:25 PM EST 10/20/2017 10:58 PM EST Narrative [facility] - 10/21/2017 9:47 AM EST Test performed using [employer] Immunodiagnostic system. us Edu Parry MD LAB BLOOD ORDERABLES Lou l Result [facility] [address] [place] [address] * High Risk HPV with Genotype 16,18 (03/20/2017 12:00 AM EDT) HPV 16 Negative Negative 04/01/2017 2:01 PM EDT [facility] HPV 18 Negative Negative 04/01/2017 2:01 PM EDT [facility] HPV, Other HR Types Negative Negative 04/01/2017 2:01 PM EDT [facility] Pap, Liquid Based CERVIX UTERI STRUCTURE / Unknown 03/20/2017 03/31/2017 9:32 PM EDT Narrative [facility] - 04/01/2017 2:01 PM EDT Assay performed using [employer]00 system utilizing Real-Time PCR to amplify target HPV DNA. This system specifically identifies HPV16 and HPV18 while concurrently detecting the other twelve high risk types (31,33,35,39,45,51,52,56,58,59,66,68). Shanice Richard DO BODY FLUIDS AND STO OLS ORDERABLES Final Result [facility] [address] [place] [address] * Thinprep Pap Smear (03/20/2017 12:00 AM [...] HPV DNA. This system specifically identifies HPV16 [id number] while concurrently detecting the other twelve high risk types(31,33,35,39,45,51,52,56,58,59,66,68). Completed by on 2017-04-02 Electronically Signed By Arielle NEFF (ASCP) , Manager Service Desk (Case signed 03/30/2017) The Papanicolaou smear is a screening tool, and like any screen, has an inherent false negative rate. Interpretation of results should be made in the context of patient history and clinical findings. Shanice Leemary Jose Manuel DO PATHOLOGY/CYTOLOGY ORDERABLES Final Result [place] from Last 3 Months or Most Recently Relevant to Health Maintenance Insurance [facility] HMO/CHOICE PLUS/DULCE/DULCE PLUS Care Teams Energy Operations Vice President Relationship Specialty Start Date End Date Back, MD Felipe [address] [place] [address] PCP - General Internal Medicine 03/26/15
--- OUTSIDE RECORDS SUMMARY | 2025-05-17 10:27 | XMS_ITS | Encounter Summary ---
Author Organization [facility] Address [address] [place] [facility], [address] [place] [address] Care Team Providers Care Clinical Documentation Nurse Name Role Phone Felipe Adam MD Primary Care Provider Reason for Visit * Reason Onset Date Comments Referral - General 05/04/2025 Infectious di sease referral canceled Encounter Details Date Type Department Care Team (Late st Contact Info) Description 05/04/2025 Telephone [facility] Primary Care [address] [address] Felipe Adam MD [address] [place] [address] Referral - General (Infectious disease referral canceled) Social History Tobacco Use Types Packs/Day Years Used Date Smoking Tobacco: Never Passive Smoke Exposure: Never Smokeless Tobacco: Never Alcohol Use Standard Drinks/Week Comments No 0 (1 standard drink = 0.6 oz pur e alcohol) [facility] Utilities Answer Date Recorded In the past 12 months has [employer], gas, oil, or water [employer] threatened to shut off services in your [...] place to sleep or slept in a custodial (including now)? No 05/08/2024 Housing Stability Vital Sign Answer Rikki e Recorded In the last 12 months, was t here a time when you were not able to pay the mortgage or rent on time? No 11/15/2024 In the past 12 months, how m any times have you moved where you were living? 0 11/15/2024 At any time in the past 12 m [facility], were you homeless or living in a custodial (including now)? No 11/15/2024 Food Insecurity Answer [...] Description 07/27/2025 11:00 AM EDT Office Visit [facility] [address] [place] [address] Felipe Adam MD [address] [place] [address] Return in about 3 months (around 07/19/2025). 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
--- OUTSIDE RECORDS SUMMARY | 2025-05-17 10:27 | XMS_ITS | Encounter Summary ---
Author Organization [facility] Address [address] [facility], [address] [place] [address] Care Team Providers Care Engineer Exhauster Name Role Phone Felipe Adam MD Primary Care Provider [phone] Reason for Referral * Imaging (Routine) - Closed Specialty Diagnoses / Procedures Referred By Contac t Referred To Contact Radiology Diagnoses Radiculopathy, thoracic region Procedures MRI THORACIC SPINE WO CONTRAST Deon Mercado MD [address] [facility], [address] [place] [address] Phone: tel: fax: Referral ID Status Reason Start Date Expiration Date Visits Re quested Visits Authorized [id number] Closed 08/18/2022 08/12/2023 1 1 Encounter Details Date Type Department Care Team (Latest Contact Info) Description 08/12/2022 Transcribe Orders [facility] [address] [place] [address] Deon Mercado MD [address] [place] [address] Radiculopathy, thoracic region (Primary Dx) [...] Description 07/27/2025 11:00 AM EDT Office Visit [address] [phone] Felipe Adam MD [address] [place] [address] Return in about 3 months (around 07/19/2025). [...] documented as of this encounter Care Teams Engineer Exhauster Relationship Specialty Start Date End Date Felipe Adam MD [address] [place] [address] PCP - General Internal Medicine 11/14/11 documented as of this encounter
--- OUTSIDE RECORDS SUMMARY | 2025-05-17 10:27 | XMS_ITS | Encounter Summary ---
Author Organization [facility] Address [address] [place] [address] Care Team Providers Care Service Team Leader Name Role Phone Alcides Adam MD Primary Care Provider [phone] Encounter Details Date Type Department Care Team (Late st Contact Info) Description 08/24/2023 Clinisync Result Encounter [facility] External Department Unsolicited Trace Casas MD [address], [place] [address] Social History Tobacco Use Types Packs/Day Years [...] Upcoming Encounters Date Type Department Care Team ([facility] Contact Info) Description 05/23/2025 4:00 PM EDT Office Visit [facility] [address] [place] [phone] Nash Block MD [address] [place] [address] [phone] 05/24/2025 11:30 AM EDT Office Visit [facility] [address] [place] [address] Jennie Barajas, HAZMAT TRUCK DRIVER-CONVEYOR MAINTENANCE MECHANIC [address] [place], [place] [phone] documented as of this encounter Procedures Procedure [...] on filedocumented in this encounter Care Teams Service Team Leader Relationship Specialty Start Date End Date Back, MD Alcides [address] [place] [address] PCP - General Family Medicine 12/08/24 documented as of this encounter
--- OUTSIDE RECORDS SUMMARY | 2025-05-17 10:27 | XMS_ITS | Encounter Summary ---
Author Organization [facility] Address [address], [address] [place] [address] Care Team Providers Care Pig Sticker Name Role Phone Felipe Adam MD Primary Care Provider [phone] Encounter Details Date Type Department Care Team ([facility] st Contact Info) Description 04/17/2025 Results Follow-Up [facility] Internal Medicine [address] [place] [address] Felipe Adam MD [address], [place] [id number] Social History Tobacco Use Types Packs/Day Years Used Date Smoking Tobacco: Never Passive Smoke Exposure: Never Smokeless Tobacco: Never Alcohol Use Standard Drinks/Week Comments No 0 (1 standard drink = 0.6 oz pur e alcohol) [facility] Utilities Answer Date Recorded In the past 12 months has [employer], gas, oil, or water [employer] threatened to shut off services in your [...] place to sleep or slept in a retirement (including now)? No 05/08/2024 Housing Stability Vital [...] time in the past 12 m [facility] [place], were you homeless or living in a retirement (including now)? No 11/15/2024 Food Insecurity Answer [...] Description 07/27/2025 11:00 AM EDT Office Visit [facility] [address] [place] [address] Felipe Adam MD [address] [place] [phone] Return in about 3 months (around 07/19/2025). 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
--- OUTSIDE RECORDS SUMMARY | 2025-05-17 10:39 | XMS_ITS | CCD ---
Author Organization [facility] Care Team Providers Care Executive Talent Acquisition Consultant Name Role Phone Back, Felipe Unavailable Unavailable [...] Care Unavailable Back, Felipe Primary Care Provider [phone] Back, Felipe Primary Care Provider Back, Felipe Primary Care Provider Unavailabl e Back , Felipe Primary Care Provider Back , Felipe Primary Care Provider Back , Felipe Primary Care Provider BACK, FELIPE Primary Care Unavailable MUTNAL, AMAR Admitting Unavailable MUTNAL, AMAR Attending Unavailable Back , Felipe Primary Care Provider NON STAFF Primary Care Provider UnavailMD Tiffanie Mixon. Attending Provider [phone] Back , Felipe Primary Care Provider [phone] YOON COBB Referring Unavailable BACK, FELIPE Primary Care Unavailable Back , Felipe Primary Care Provider KALPESH ARENAS Attending Unavail able BACK, FELIPE Primary Care Unavailable Back , Felipe Primary Care Provider FRANCES HARRIS Admitting Unavailable FRANCES HARRIS Attending Unavailable FRANCES HARRIS Consulting Unavailable FRANCES HARRIS Admitting Unavailable FRANCES HARRIS Attending Unavailable [facility] [place], DR PIPER Ackerman Consulting Unavailable FRANCES HARRIS Consulting Unavailable FRANCES HARRIS Admitting Unavailable FRANCES HARRIS Attending Unavailable [facility], DR EMILY Riojas Consulting Unavailable FRANCES HARRIS Consulting Unavailable Back , Felipe Primary Care Provider BACK, FELIPE Primary Care Unavailable ROBBIN SHOOK II Attending Un available Back , Felipe Primary Care Provider INDER Harris Attending Provider [phone] Frances Harris Attending Unavailable Frances Harris Admitting Unavailable Unavailable Primary Care Provider Unavailabl e BACK FELIPE Referring Unavailable BACK, FELIPE Primary Care Unavailable BACK, FELIPE Admitting Unavailable SHERMAN ADAIR Attending Unavailable Back , [facility] Primary Care Provider FOZIA MENG Attending Unavailable LYNN BLOCK Attending Unavailable FOZIA MENG Referring Unavailable TIFFANIE CASAS Attending Unavailable LYNN BOLCK Attending Unavailable ROBBIN SÁNCHEZ Attending Unavailabl e ROBBIN SÁNCHEZ Referring Unavailabl e LORE MILES Attending Unavailable TIFFANIE CASAS Attending Unavailable FOZIA MENG Attending Unavailable ROBBIN SÁNCHEZ Attending Unavailabl e BACK, FELIPE Primary Care Unavailable SEVERO CASE Attending Unavailable BACK, FELIPE Referring Unavailable BACK, FELIPE Primary Care Unavailable BACK, FELIPE Referring Unavailable BACK, FELIPE Primary Care Unavailable BACK, FELIPE Attending Unavailable BACK, FELIPE Referring Unavailable BACK, FELIPE Primary Care Unavailable BACK, FELIPE Attending Unavailable BACK, FELIPE Referring Unavailable BACK, FELIPE Primary Care Unavailable ROBBIN SÁNCHEZ Attending Unavailabl e ROBBIN SÁNCHEZ Referring Unavailabl e BACK, FELIPE Primary Care Unavailable BACK, FELIPE Primary Care Unavailable FRANCES HARRIS Referring Unavailable Allergies Allergy Classification Reported Allergen(s) Allergy Type Date of Onset Reaction(s) Facility (20 sources) Chlorhexidine; Translations: [CHLORHEXIDINE] Drug Allergy 3 [facility] (10 sources) topiramate; Translations: [TOPIRAMATE] Drug Allergy 4 Other (See Comments) [facility] (20 sources) Topiramate Propensity to adverse reactions 4 [facility] (1 source) Chlorhexidine; Translations: [Chlorhexidine Gluconate] Drug Allergy [facility] Repository Medications Current Medications Medication Drug Class(es) Dates Sig (Normalized) Sig (Original) acetaminophen 325 mg / HYDROcodone bitartrate 5 mg oral tablet (10 sources) Opioid Agonist Start: 03-12-2019 HYDROcodone-acetam inophen (NORCO) 5-325 MG per tablet take 1 tablet by prabhjot th every eight hours as needed hydroCODone-acetaminophen 5-325 MG Tab t ablet take 1 tablet by mouth every 8 hours as needed. Active ALPRAZolam 0.25 mg oral tablet (14 sources) Benzodiazepine Start: 03-14-2025 take 1 tablet by mouth once daily ALPRAZolam (XANAX) 0.25 MG tablet Take 1 tablet by mouth nightly. 03/14/2025 Active amoxicillin 875 mg / clavulanate 125 mg oral tablet (1 source) Penicillin-class Antibacterial Start: 08-08-2020 End: 08-15-2020 take 1 tablet by mouth twice daily amoxicillin-clavu lanate (AUGMENTIN) 875-125 MG per tablet Indications: Bacterial sinusitis Take 1 tablet by mouth 2 times daily for 7 days 14 tablet 0 08/08/2020 08/15/2020 Active 24 hr amphetamine aspartate 5 mg / amphetamine sulfate 5 mg / dextroamphetamine saccharate 5 mg / dextroamphetamine sulfate 5 mg extended release oral capsule (4 sources) Central Nervous System Stimulant Start: 02-25-2023 End: 10-11-2024 dextroamphetamine -amphetamine (ADDERALL XR) 20 MG 24 hr capsule [...] tablet (20 sources) gamma-Aminobutyric Acid-ergic Agonist Start: 12-16-2024 take 2 tablets by mouth at bedtime baclofen (Lioresal) 10 MG tablet Indications: Cervical paraspinal muscle spasm TAKE 2 TABLETS BY MOUTH AT BEDTIME FOR 30 DAYS 60 tablet 3 12/16/2024 Active Start: 02-26-2023 take 2 tablets by mo uth at bedtime baclofen (Lioresal) 10 MG tablet Indications: Cervical paraspinal muscle spasm TAKE 2 TABLETS BY MOUTH AT BEDTIME FOR 30 DAYS 60 tablet 3 07/12/2024 Active Start: 04-19-2022 take 1 tablet by prabhjot once daily baclofen (LIORESAL) 10 MG tablet Take 1 tablet by mouth nightly 04/19/2022 Active biotin 1 mg oral tablet (20 sources) Start: 02-26-2022 take 1 tablet by mouth once daily Biotin 1000 MCG TABS Take 1 tablet by mouth daily 02/26/2022 Active biotin 10 MG tab let 1 (one) time each day at the same time Active busPIRone hydrochloride 10 mg oral tablet (6 sources) take 1 tablet by mouth three times daily busPIRone (BUSPAR) 10 MG tablet Take 10 mg by mouth 3 times daily 0 Active Calcium (20 sources) Phosphate Binder, Calcium take 1 tablet by mouth in the morning calcium 500 MG tablet Take 1 tablet by mouth in the morning and 1 tablet before bedtime. Active calcium carbonate 500 mg oral tablet (13 sources) take 1 tablet by mouth twice daily calcium carbonate (OSCAL) 500 MG TABS tablet Take 1 tablet by mouth 2 times daily Active calcium carbonat e (CALCIUM 500 ORAL) Take by mouth . Active calcium carbonat e (CALCIUM 500 ORAL) Take by mouth . 0 Active cephalexin 250 mg oral capsule (15 sources) Cephalosporin Antibacterial Start: 08-13-2023 End: 06-10-2024 take 1 capsule by mouth once daily as needed for urinary tract infection cephALEXin (KEFLEX) 250 MG capsule Indications: Frequent UTI Take 1 capsule by mouth daily as needed (post-coital UTI prophylaxis) 30 capsule 1 08/13/2023 Active Start: 08-07-2022 take 1 capsule by mo [facility] once daily as needed for urinary [...] 50 MCG (2000 UT) tablet Take by mouth Active cholecalciferol, vitamin D3, (VITAMIN D3) 2,000 unit Tab Take by mouth. Active clindamycin 300 mg oral capsule (10 sources) Lincosamide Antibacterial Start: 04-04-2025 End: 04-18-2025 clindamycin (CLEOCIN) 300 MG capsule 04/13/2025 Active Start: 07-26-2019 clindamycin (C LEOCIN) 150 MG capsule cyclobenzaprine hydrochloride 5 mg oral tablet (16 sources) Muscle Relaxant take 0.5 tablet by mouth once daily cyclobenzaprine (FLEXERIL) 5 MG tablet Take 5 mg by mouth nightly 1/2 tablet every night 0 Active dapagliflozin 10 mg oral tablet (1 source) Sodium-Glucose Cotransporter 2 Inhibitor Start: take 1 tablet by mouth once daily in the morning dapagliflozin (FARXIGA) 10 MG tablet Indications: Stage 3a chronic kidney disease (HCC) , Pre-diabetes Take 1 tablet by mouth every morning 90 tablet 1 04/18/2025 Active 24 hr desvenlafaxine succinate 25 mg extended release oral tablet (1 source) Serotonin and Norepinephrine Reuptake Inhibitor Start: desvenlafaxine succinate (PRISTIQ) 25 MG TB24 extended release tablet 25 mg daily 0 07/29/2021 Active dextromethorphan hydrobromide 15 mg / guaiFENesin 400 mg / pseudoephedrine hydrochloride 60 mg oral tablet (1 source) alpha-Adrenergic Agonist, Uncompetitive V-qxigys-A-aspartate Receptor Antagonist, Sigma-1 Agonist Start: End: take 1 tablet by mouth every six hours as needed Sdgjqnvsabifkhi-TZ-OD (CAPMIST DM) 60-15-400 MG TABS Take 1 tablet by mouth every 6 hours as needed (Sinus pressure) 28 tablet 0 02/13/2021 02/20/2021 Active diclofenac sodium 0.01 mg/mg topical gel (20 sources) Nonsteroidal Anti-inflammatory Drug Start: 023 diclofenac sodium 1 % gel 01/06/2023 Active [...] TWICE A DAY 180 tablet 3 04/03/2025 Active Start: 05-26-2023 take 1 tablet by [...] spray(s) nasa l route once daily fluticasone (Flonase) 50 MCG/ACT nasal spray Administer 2 sprays into each nostril Daily 09/22/2022 Active Start: 09-22-2022 take 2 spray(s) [...] BREAKFAST AND SUPPER 180 tablet 3 02/06/2025 Active lansoprazole 30 mg delayed release oral capsule (5 sources) Proton Pump Inhibitor take 1 capsule by mouth once daily lansoprazole (PREVACID) 30 MG capsule Take 30 mg by mouth daily. 0 Active linaclotide 0.145 mg oral capsule (8 sources) Guanylate Cyclase-C Agonist Start: 05-09-2024 take [...] Leukotriene Receptor Antagonist Start: 09-22-2022 End: 10-31-2025 montelukast (SINGULAIR) 10 MG tablet Indications: Seasonal [...] oral capsule (20 sources) Tricyclic Antidepressant Start: 02-13-2025 End: 02-13-2026 take 3 capsules by mouth once daily nortriptyline (PAMELOR) 50 MG capsule Take 3 capsules by mouth nightly 02/13/2025 02/13/2026 Active Start: 09-14-2024 End: 11-02-2025 take 2 capsules by mouth at bedtime nortriptyline (Pamelor) 50 MG capsule Indications: Idiopathic progressive polyneuropathy , Intractable 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 (CMS/HCC) Take 2 capsules (100 mg) by mouth at bedtime 180 capsule 3 11/02/2024 02/13/2025 Discontinued (Reorder) Start: 06-10-2024 End: 09-14-2024 take 2 capsules [...] 38.0 to 38.9 in adult ([facility]) Take 1 tablet by mouth every morning [...] 40.0 to 44.9 in adult ([facility]) Take 1 capsule by mouth every morning [...] Active Start: 08-25-2018 take 1 capsule by [facility] three times daily pregabalin (LYRICA) 150 MG capsule Indications: Epidural abscess , Discitis of thoracic region , Infection of thoracic spine ([facility]) , Peripheral polyneuropathy Take 1 capsule by [...] TONGUE EVERY OTHER DAY 01/02/2022 Active rOPINIRole 1 mg oral tablet [...] mg) before bedtime. 270 tablet 3 10/31/2024 02/13/2025 Discontinued (Reorder) Start: 08-24-2023 rOPINIRole (Re quip) 0.5 MG tablet Indications: Restless legs TAKE 1 TABLET THREE TIMES A DAY 270 tablet 3 08/24/2023 Active Start: 02-10-2023 rOPINIRole (RE QUIP) 0.5 MG tablet Start: 04-02-2021 End: 02-13-2026 take 1 tablet by mouth three times [...] Start: 07-30-2020 take 2 tablets by mo uth once daily sertraline (ZOLOFT) 100 MG tablet Take 2 tablets by mouth daily Currently decreasing this medication 07/30/2020 Active Start: 07-30-2020 take 1 tablet by prabhjot once daily sertraline (ZOLOFT) 100 MG tablet Take 100 mg by mouth daily Currently decreasing this medication 0 07/30/2020 Active Start: 07-06-2019 take 2 tablets by mo uth once daily sertraline (ZOLOFT) 50 MG tablet [...] Start: 02-11-2016 take 1 tablet by prabhjot once daily cetirizine (ZYRTEC) 10 MG tablet TAKE 1 TABLET BY MOUTH DAILY. 30 tablet 4 02/11/2016 Active 200 ml ciprofloxacin 2 mg/ml injection (4 sources) Quinolone Antimicrobial Start: 04-04-2025 End: 04-04-2025 400 mg, IntraVENous, ONCE, 1 dose, On Thu04/04/25 at 2200, Antimicrobial Indications: Skin and Soft Tissue Infection Start: 04-04-2025 End: 04-14-2025 take 1 tablet by mouth twice daily ciprofloxacin (CIPRO) 500 MG tablet Take 1 tablet by mouth 2 times daily for 10 days 20 tablet 04/04/2025 04/14/2025 Active Start: 04-13-2021 End: 04-16-2021 take 1 tablet by mouth twice daily ciprofloxacin (CIPRO) 250 MG tablet Indications: Acute cystitis with hematuria Take 1 tablet by mouth 2 times daily for 3 days 6 tablet 0 04/13/2021 04/16/2021 Active clindamycin (CLEOCIN) 600 mg in sodium chloride 0.9 % 50 mL IVPB (1 source) Start: 04-04-2025 End: 04-04-2025 600 mg, IntraVENous, ONCE, 1 dose, On Thu04/04/25 at 2200, Antimicrobial Indications: Skin and Soft Tissue Infection gadobenate dimeglumine (MULTIHANCE) injection 10 mL (2 sources) Start: 04-11-2025 End: 04-11-2025 take 1 dose intravenously once 10 mL, IntraVENous, IMG ONCE PRN, 1 dose, Starting on Thu04/11/25 at 1244, Until Thu04/11/25 at 1245, Other Start: 06-25-2022 End: 06-25-2022 gadobenate dimeglumine (MULT IHANCE) injection 10 mL hydrOXYzine pamoate 50 mg oral capsule (20 sources) Antihistamine Start: 03-06-2023 End: 03-14-2025 hydrOXYzine pamoate (Vistaril) 50 MG capsule Indications: Allergy, subsequent encounter Take 1 capsule (50 mg) by mouth as needed at bedtime for itching. 90 capsule 1 03/06/2023 03/14/2025 Discontinued icosapent ethyl 1000 mg oral capsule (15 [...] End: 09-16-2020 orphenadrine (NORFLEX) injection 30 mg 50 ml sodium chloride 9 mg/ml injection (1 source) Start: 04-04-2025 End: 04-04-2025 1,000 mL (10.3 mL/kg), IntraVENous, at 1,935.5 mL/hr, Administer over 31 Minutes, ONCE, On Thu04/04/25 at 2200, For 1 dose Problems Active Problems Problem Classification Problem Date Documented Date Episodic/Chronic Anxiety disorders (20 sources) Anxiety; Translations: [Mixed anxiety and depressive disorder] Onset: 3 08-15-2018 Chronic Chronic kidney disease (20 sources) Chronic kidney disease stage 3; Translations: [Chronic renal insufficiency] Onset: 4 07-05-2019 Chronic Chronic kidney disease (14 sources) Chronic renal insufficiency; Translations: [Chronic kidney disease] Onset: 4 10-25-2013 Chronic ulcer of skin (9 sources) Deep tissue pressure injury; Translations: [Pressure-induced deep tissue damage of other site] Onset: 5 04-04-2025 Chronic Diabetes mellitus with complications (20 sources) Polyneuropathy [...] Translations: [Nondisplaced fracture of second metatarsal bone, right foot, initial encounter for closed fracture] 04-21-2025 Episodic Genitourinary symptoms and ill-defined conditions (5 sources) Dysuria; Translations: [Dysuria] Episodic Headache; including migraine (20 sources) Migraine without aura, not refractory ; Translations: [Chronic migraine without aura, not intractable, without status migrainosus] Onset: 3 03-08-2023 Chronic Immunizations and screening for infectious disease (4 sources) Suspected disease caused by 2019-nCoV; Translations: [...] deficiency, unspecified] Onset: 4 08-15-2018 Chronic Osteoarthritis (20 sources) Degenerative joint disease of ankle AND/OR foot; Translations: [Primary osteoarthritis, unspecified ankle and foot] Onset: 3 03-08-2023 Chronic Other acquired deformities (20 sources) Contracture of joint of left ankle; [...] Onset: 3 Episodic Other connective tissue disease (8 sources) Pain in right foot; Translations: [Pain in right foot] 04-06-2025 Episodic Other connective tissue disease (1 source) Pain in right foot; Translations: [Pain in right foot] Onset: 5 Episodic Other diseases of kidney and ureters (2 sources) Disorder of kidney and ureter, unspecified; Translations: [Disorder of kidney and ureter, unspecified] Onset: 5 Episodic Other hereditary and degenerative nervous system [...] 3 08-11-2024 Chronic Other nervous system disorders (20 sources) Bilateral carpal tunnel syndrome; Translations: [Carpal tunnel syndrome, bilateral upper limbs] Onset: 3 03-08-2023 Chronic Other nervous system disorders (20 sources) Carpal tunnel syndrome of left wrist; Translations: [Carpal tunnel syndrome, left upper limb] Onset: 3 03-08-2023 Chronic Other nervous system disorders (20 sources) Inattention; Translations: [Attention and concentration deficit] Onset: 3 03-08-2023 Chronic Other nervous system disorders (20 sources) Disorder of the peripheral nervous system; Translations: [Hereditary and idiopathic neuropathy, unspecified] Onset: 3 03-08-2023 Chronic Other nervous system disorders (20 sources) Tarsal tunnel syndrome; Translations: [Tarsal tunnel syndrome, unspecified lower limb] Onset: 3 03-08-2023 Chronic Other nervous system disorders (4 sources) Abnormal gait; Translations: [Unsteadiness on feet] 02-13-2025 Episodic Other nervous system disorders (13 sources) Carpal [...] Onset: 3 Chronic Other non-traumatic joint disorders (3 sources) Charcot arthropathy of midfoot; Translations: [Charcot's joint, unspecified ankle and foot] 03-03-2023 Chronic Other non-traumatic joint disorders (20 sources) Acute arthropathy; Translations: [Arthropathy, unspecified] Onset: 3 03-08-2023 Chronic Other non-traumatic joint disorders (20 sources) Charcot's arthropathy; Translations: [Charcot's joint, left [...] Onset: 0 05-11-2020 Chronic Residual codes; unclassified (20 sources) Hypersomnia; Translations: [Hypersomnia, unspecified] Onset: 3 05-20-2023 Chronic Residual codes; unclassified (2 sources) Localized edema; Translations: [Localized edema] Onset: 3 Episodic Residual codes; unclassified (2 sources) Edema, generalized; Translations: [Generalized edema] 04-10-2025 Episodic Septicemia (except in labor) (20 sources) Sepsis; Translations: [Methicillin resistant Staphylococcus aureus infection] Onset: 8 Resolved: 0 08-15-2018 Episodic Skin and subcutaneous tissue infections (4 sources) Infection of toe ; Translations: [Local infection of the skin and subcutaneous tissue, unspecified] 04-10-2025 Episodic Spondylosis; intervertebral disc disorders; other back problems (20 sources) Discitis, unspecified, thoracic region; Translations: [Degeneration of thoracic intervertebral disc] Onset: 4 08-15-2018 Chronic Thyroid disorders (20 sources) Thyroid nodule; Translations: [Nontoxic single thyroid nodule] Onset: 2 05-27-2022 Chronic Unclassified (1 source) Pressure-induced deep tissue damage of other site; Translations: [Pressure-induced deep tissue damage of other site] Onset: Viral infection (1 source) Viral disease; Translations: [Viral infection, unspecified] Episodic Past or Other Problems Problem Classification Problem Date Documented Date Episodic/Chronic Abdominal pain (20 sources) Female genital organ symptoms; Translations: [Pelvic [...] of skin] Onset: 02-05-2018 08-03-2017 Episodic Other CONTRACTING SPECIALIST infection and poliomyelitis (20 sources) Extradural and subdural abscess, unspecified; Translations: [Epidural abscess] Onset: 08-20-2018 08-20-2018 Episodic Other connective tissue disease (1 source) Spasm; Translations: [Spasm of muscle] Episodic Other connective tissue disease (20 sources) Pain in left foot; Translations: [Pain in left foot] Onset: 05-19-2023 03-03-2023 Episodic Other connective tissue disease (20 sources) Pain in limb; Translations: [Pain in unspecified limb] Onset: 03-08-2023 03-08-2023 Episodic Other connective tissue disease (20 sources) Muscle pain; Translations: [Myalgia, unspecified site] Onset: 03-08-2023 03-08-2023 Episodic Other connective tissue disease (20 sources) Spasm of cervical paraspinous muscle; Translations: [Other muscle spasm] Onset: 05-20-2023 05-20-2023 Episodic Other connective tissue disease (20 sources) Bilateral trochanteric bursitis; Translations: [Trochanteric bursitis, right hip] Onset: 08-24-2023 08-24-2023 Episodic Other nervous system disorders (20 sources) Metabolic encephalopathy; Translations: [Metabolic encephalopathy] Resolved: 05-11-2020 08-16-2018 Chronic Other nervous system disorders (20 sources) Skin sensation disturbance; Translations: [Unspecified disturbances of skin sensation] Onset: 03-08-2023 03-08-2023 Episodic Other non-epithelial cancer of skin (20 sources) Basal cell carcinoma of skin; Translations: [Basal cell carcinoma of skin, unspecified] Onset: 09-16-2017 09-29-2017 Episodic Residual codes; unclassified (20 sources) Insomnia; Translations: [Insomnia, unspecified] Onset: 03-08-2023 03-08-2023 Episodic Spondylosis; intervertebral disc disorders; other back problems (20 sources) Radiculopathy, cervical region; Translations: [Acute thoracic back pain] Onset: 02-03-2019 03-08-2023 Episodic Unclassified (1 source) Patient encounter status 02-15-2025 Urinary tract infections (20 sources) Acute cystitis; Translations: [Acute cystitis with hematuria] Onset: 05-04-2018 Episodic Results Test Name Value Interpretation Reference Range Facility Basic Metabolic Panelon 05-05 Anion gap [Moles/Vol] 12 mmol/L 9 - 17 mmol/L [facility] Calcium [Mass/Vol] 9.3 mg/dL 8.6 - 10. 4 mg/dL [facility] Chloride [Moles/Vol] 104 mmol/L 98 - 10 7 mmol/L [facility] CO2 [Moles/Vol] 22 mmol/L 20 - 31 mmol/L [facility] Creatinine [Mass/Vol] 1.3 mg/dL High 0.5 - 0.9 mg/dL [facility] Est, Glodieudonne Filt Rate 52 Low - PINF [facility] Comment on above: These results are not [...] that affects renal tubular secretion. Glucose [Mass/Vol] 131 mg/dL High 70 - 99 mg/dL [facility] Potassium [Moles/Vol] 4.4 mmol/L 3.7 - 5.3 mmol/L [facility] Sodium [Moles/Vol] 138 mmol/L 135 - 144 mmol/L [facility] Urea nitrogen [Mass/Vol] 17 mg/dL 6 - 20 mg/dL [facility] Basic Metabolic Profon 05-15 Anion gap [Moles/Vol] 12 mmol/L Normal 9-17 [facility] Comment on above: Performed By: #### C BC, SED, MORPHX, CRP, BMP ####[facility] [id number] [place] [address] lab Director: Emily George MD Calcium [Mass/Vol] 9.3 mg/dL Normal 8.6-10.4 [facility] Comment on above: Performed By: #### C BC, SED, MORPHX, CRP, BMP ####[facility] [id number] [place], [place] [id number] lab Director: Emily George MD Chloride [Moles/Vol] 104 mmol/L Normal 98-107 [facility] Comment on above: Performed By: #### C BC, SED, MORPHX, CRP, BMP ####[facility] [id number] [facility] [place] [address] lab Director: Emily George MD CO2 [Moles/Vol] 22 mmol/L Normal 20-31 [facility] Comment on above: Performed By: #### C BC, SED, MORPHX, CRP, BMP ####[facility] [id number] [place] [address] lab Director: Emily George MD Creatinine [Mass/Vol] 1.3 mg/dL High 0.5-0.9 [facility] Comment on above: Performed By: #### C BC, SED, MORPHX, CRP, BMP ####[facility] [id number] [place] [address] lab Director: Emily George MD GFR/1.73 sq M.predicted among non-blacks MDRD (S/P/Bld) [Vol rate/Area] 52 mL/min/{1.73_m2} Low >60 [facility] Comment on above: Result Comment: These [...] affects renal tubular secretion. Performed By: #### C BC, SED, MORPHX, CRP, BMP ####[facility] [id number] [place], [place] [id number] lab Director: Emily George MD Glucose [Mass/Vol] 131 mg/dL High 70-99 [facility] Comment on above: Performed By: #### C BC, SED, MORPHX, CRP, BMP ####[facility] [id number] [place] [address] lab Director: Emily George MD Potassium [Moles/Vol] 4.4 mmol/L Normal 3.7-5.3 [facility] Comment on above: Performed By: #### C BC, SED, MORPHX, CRP, BMP ####[facility] [id number] [place] [address] lab Director: Emily George MD Sodium [Moles/Vol] 138 mmol/L Normal 135-144 [facility] Comment on above: Performed By: #### C BC, SED, MORPHX, CRP, BMP ####[facility] [id number] [place] [address] lab Director: Emily George MD Urea nitrogen [Mass/Vol] 17 mg/dL Normal 6-20 [facility] Comment on above: Performed By: #### C BC, SED, MORPHX, CRP, BMP ####[facility] [id number] [place] [address] lab Director: Emily George MD C-Reactive Proteinon 025 CRP High sensitivity method [Mass/Vol] 6.2 mg/L High 0.0 - 5.0 mg/L [facility] CRP [Mass/Vol] 6.2 mg/L High 0.0-5.0 [facility] Comment on above: Performed By: #### C BC, SED, MORPHX, CRP, BMP ####[facility] [id number] [place] [address] lab Director: Emily George MD CBCon 05-15-2025 Erythrocyte distribution width (RBC) [Ratio] 19.4 % High 12.1 - 15.2 % [facility] Hematocrit (Bld) [Volume fraction] 32.3 % Low 36.0 - 46.0 % [facility] Hemoglobin (Bld) [Mass/Vol] 9.9 g/dL Low 12.0 - 16.0 g/dL [facility] Interpretation and review of laboratory results Abnormal [facility] MCH (RBC) [Entitic mass] 28.0 pg 26.0 - 34.0 pg [facility] MCHC (RBC) [Mass/Vol] 30.7 g/dL Low 31.0 - 37.0 g/dL [facility] MCV (RBC) [Entitic vol] 91.2 fL 80.0 - 100.0 fL [facility] Platelet mean volume (Bld) [Entitic vol] 11.7 fL 6.0 - 12.0 fL [facility] Platelets (Bld) [#/Vol] 154 10*3/uL [facility] RBC (Bld) [#/Vol] 3.54 10*6/uL Low 4.00 - 5.2 0 m/uL [facility] WBC other (Bld) [#/Vol] 3.8 [facility] Erythrocyte distribution width (RBC) [Ratio] 19.4 % High 12.1-15.2 [facility] Comment on above: Performed By: #### C BC, SED, MORPHX, CRP, BMP ####[facility] Gmh4520 [place] [address] lab Director: Emily George MD Hematocrit (Bld) [Volume fraction] 32.3 % Low 36.0-46.0 [facility] Comment on above: Performed By: #### C BC, SED, MORPHX, CRP, BMP ####[facility] Fhf8436 [place] [address] lab Director: Emily George MD Hemoglobin (Bld) [Mass/Vol] 9.9 g/dL Low 12.0-16.0 [facility] Comment on above: Performed By: #### C BC, SED, MORPHX, CRP, BMP ####[facility] Ywy4280 [place] [address] Lab Director: Emily George MD MCH (RBC) [Entitic mass] 28.0 pg Normal 26.0-34.0 [facility] Comment on above: Performed By: #### C BC, SED, MORPHX, CRP, BMP ####[facility] [address] [place] [address] Lab Director: Emily George MD MCHC (RBC) [Mass/Vol] 30.7 g/dL Low 31.0-37.0 [facility] Comment on above: Performed By: #### C BC, SED, MORPHX, CRP, BMP ####[facility] [address] [place] [address] Lab Director: Emily George MD MCV (RBC) [Entitic vol] 91.2 fL Normal 80.0-100.0 [facility] Comment on above: Performed By: #### C BC, SED, MORPHX, CRP, BMP ####[facility] [address] [place] [address] Lab Director: Emily George MD Platelet mean volume (Bld) [Entitic vol] 11.7 fL Normal 6.0-12.0 [facility] Comment on above: Performed By: #### C BC, SED, MORPHX, CRP, BMP ####[facility] Uuf[address] [place], [place] [phone] Director: Emily George MD Platelets (Bld) [#/Vol] 154 10*3/uL Normal 140-450 [facility] Comment on above: Performed By: #### C BC, SED, MORPHX, CRP, BMP ####[facility] Vfi[address] [place], [place] [phone] Director: Emily George MD RBC (Bld) [#/Vol] 3.54 10*6/uL Low 4.00-5.20 [facility] Comment on above: Performed By: #### C BC, SED, MORPHX, CRP, BMP ####[facility] Jse[address] [place], [place] [address] Lab Director: Emily George MD WBC (Bld) [#/Vol] 3.8 10*3/uL Normal 3.5-11.0 [facility] Comment on above: Performed By: #### C BC, SED, MORPHX, CRP, BMP ####[facility] Qsr13[address] [place], [place] [phone] Lab Director: Emily Goerge MD MORPHOLOGY CHECKon 5 Morphology Rehan (Bld) [Interp] MODERATE ANISOCYTOSIS [facility] Morphology Checkon 5 Morphology Rehan (Bld) [Interp] MODERATE Normal [facility] Comment on above: Result Comment: ANIS OCYTOSIS Performed By: #### C BC, SED, MORPHX, CRP, BMP ####[facility] Rhb[address] [place], [place] [phone] lab Director: Emily George MD No Panel Informationon 05-15 Interpretation and review of laboratory results Abnormal [facility] Sedimentation Rateon 025 Sedimentation Rate 19 mm/Hr Normal 0-20 [facility] Comment on above: Performed By: #### C BC, SED, MORPHX, CRP, BMP ####[facility] Eem[address] [place], [place] [id number] Lab Director: Emily George MD ESR Photometric method (Bld) [Velocity] 19 [facility] Comp Metabolic Profon 2024 Albumin [Mass/Vol] 4.2 g/dL Normal 3.5-5.2 [facility] Comment on above: Performed By: #### L IPR, GLYHGB #### [facility] EzLike [address] [place] [address] Supervisor Intelligence Analyst: Placido Pierce MD #### CP #### [facility] [address] [place] [address] Supervisor Intelligence Analyst: Emily George MD #### INSU #### [facility] [address] [place] [address] Supervisor Intelligence Analyst: Placido Pierce MD [facility] [address] [place] [address] Supervisor Intelligence Analyst: Emily George MD Albumin/Glob Ratio 1.4 Normal 1.0-2.5 [facility] Comment on above: Performed By: #### L IPR, GLYHGB #### [facility] [address] [place] [address] Supervisor Intelligence Analyst: Placido Pierce MD #### CP #### [facility] [address] [place] [address] Supervisor Intelligence Analyst: Emily George MD #### INSU #### [address] [address] Supervisor Intelligence Analyst: Placido Pierce MD [facility] [address] [place] [address] Supervisor Intelligence Analyst: Emily George MD Alkaline Phos 109 U/L High 35-104 [facility] Comment on above: Performed By: #### L IPR, GLYHGB #### [facility] [address] [place] [address] Supervisor Intelligence Analyst: Placido Pierce MD #### CP #### [facility] [address] [place] [address] Supervisor Intelligence Analyst: Emily George MD #### INSU #### [facility] [address] [place] [address] Supervisor Intelligence Analyst: Placido Pierce MD [facility] [address] [place] [address] Supervisor Intelligence Analyst: Emily George MD ALT [Catalytic activity/Vol] 23 U/L Normal 5-33 [facility] Comment on above: Performed By: #### L IPR, GLYHGB #### [facility] [address] [place] [address] Supervisor Intelligence Analyst: Placido Pierce MD #### CP #### [facility] [address] [place] [address] Supervisor Intelligence Analyst: Emily George MD #### INSU #### [facility] [address] [place] [address] Supervisor Intelligence Analyst: Placido Pierce MD [facility] [address] [place] [address] Supervisor Intelligence Analyst: Emily George MD Anion gap [Moles/Vol] 14 mmol/L Normal 9-17 [facility] Comment on above: Performed By: #### L IPR, GLYHGB #### [facility] [address] [place] [address] Supervisor Intelligence Analyst: Placido Pierce MD #### CP #### [facility] [address] [place] [address] Supervisor Intelligence Analyst: Emily George MD #### INSU #### [facility] [address] [place] [address] Supervisor Intelligence Analyst: Placido Pierce MD [facility] [address] [place] [address] Supervisor Intelligence Analyst: Emily George MD AST [Catalytic activity/Vol] 22 U/L Normal <32 [facility] Comment on above: Performed By: #### L IPR, GLYHGB #### [facility] [address] [place] [address] Supervisor Intelligence Analyst: Placido Pierce MD #### CP #### [facility] [address] [place] [address] Supervisor Intelligence Analyst: Emily George MD #### INSU #### [facility] [address] [place] [address] Supervisor Intelligence Analyst: Placido Pierce MD [facility] [address] [place] [address] Supervisor Intelligence Analyst: Emily George MD Bilirubin [Mass/Vol] 0.5 mg/dL Normal 0.3-1.2 [facility] Comment on above: Performed By: #### L IPR, GLYHGB #### [address] [address] Supervisor Intelligence Analyst: Placido Pierce MD #### CP #### [facility] [address] [place] [address] Supervisor Intelligence Analyst: Emily George MD #### INSU #### [address] [address] Supervisor Intelligence Analyst: Placido Pierce MD [facility] [address] [place] [address] Supervisor Intelligence Analyst: Emily George MD Calcium [Mass/Vol] 9.4 mg/dL Normal 8.6-10.4 [facility] Comment on above: Performed By: #### L IPR, GLYHGB #### [address] [address] Supervisor Intelligence Analyst: Placido Pierce MD #### CP #### [facility] [address] [place] [address] Supervisor Intelligence Analyst: Emily George MD #### INSU #### [address] [address] Supervisor Intelligence Analyst: Placido Pierce MD [facility] [address] [place] [address] Supervisor Intelligence Analyst: Emily George MD Chloride [Moles/Vol] 99 mmol/L Normal 98-107 [facility] Comment on above: Performed By: #### L IPR, GLYHGB #### [facility] [address] [place] [address] Supervisor Intelligence Analyst: Placido Pierce MD #### CP #### [facility] [address] [place] [address] Supervisor Intelligence Analyst: Emily George MD #### INSU #### [address] [address] Supervisor Intelligence Analyst: Placido Pierce MD [facility] [address] [place] [address] Supervisor Intelligence Analyst: Emily George MD CO2 [Moles/Vol] 26 mmol/L Normal 20-31 [facility] Comment on above: Performed By: #### L IPR, GLYHGB #### [address] [address] Supervisor Intelligence Analyst: Placido Pierce MD #### CP #### [facility] [address] [place] [address] Supervisor Intelligence Analyst: Emily George MD #### INSU #### [address] [address] Supervisor Intelligence Analyst: Placido Pierce MD [facility] [address] [place] [address] Supervisor Intelligence Analyst: Emily George MD Creatinine [Mass/Vol] 1.4 mg/dL High 0.5-0.9 [facility] Comment on above: Performed By: #### L IPR, GLYHGB #### [address] [address] Supervisor Intelligence Analyst: Placido Pierce MD #### CP #### [facility] [address] [facility] [place] [address] Supervisor Intelligence Analyst: Emily George MD #### INSU #### [facility] [address] [place] [address] Supervisor Intelligence Analyst: Placido Pierce MD [facility] [address] [place] [address] Supervisor Intelligence Analyst: Emily George MD GFR/1.73 sq M.predicted among non-blacks MDRD (S/P/Bld) [Vol rate/Area] 47 mL/min/{1.73_m2} Low >60 [facility] Comment on above: Result Comment: These [...] renal tubular secretion. Performed By: #### L IPR, GLYHGB #### [facility] [address] [place] [address] Supervisor Intelligence Analyst: Placido Pierce MD #### CP #### [facility] [address] [place] [address] Supervisor Intelligence Analyst: Emily George MD #### INSU #### [facility] [address] [place] [address] Supervisor Intelligence Analyst: Placido Pierce MD [facility] [address] [place] [address] Supervisor Intelligence Analyst: Emily George MD Glucose [Mass/Vol] 114 mg/dL High 70-99 [facility] Comment on above: Performed By: #### L IPR, GLYHGB #### [facility] [address] [place] [address] Supervisor Intelligence Analyst: Placido Pierce MD #### CP #### [facility] [address] [place] [address] Supervisor Intelligence Analyst: Emily George MD #### INSU #### [facility] [address] [place] [address] Supervisor Intelligence Analyst: Placido Pierce MD [facility] [address] [place] [address] Supervisor Intelligence Analyst: Emily George MD Potassium [Moles/Vol] 4.1 mmol/L Normal 3.7-5.3 [facility] Comment on above: Performed By: #### L IPR, GLYHGB #### [address] [address] Supervisor Intelligence Analyst: Placido Pierce MD #### CP #### [facility] [address] [place] [address] Supervisor Intelligence Analyst: Emily George MD #### INSU #### [address] [address] Supervisor Intelligence Analyst: Placido Pierce MD [facility] [address] [place] [address] Supervisor Intelligence Analyst: Emily George MD Protein [Mass/Vol] 7.2 g/dL Normal 6.4-8.3 [facility] Comment on above: Performed By: #### L IPR, GLYHGB #### [address] [address] Supervisor Intelligence Analyst: Placido Pierce MD #### CP #### [facility] [address] [place] [address] Supervisor Intelligence Analyst: Emily George MD #### INSU #### [address] [address] Supervisor Intelligence Analyst: Placido Pierce MD [facility] [address] [place] [address] Supervisor Intelligence Analyst: Emily George MD Sodium [Moles/Vol] 139 mmol/L Normal 135-144 [facility] Comment on above: Performed By: #### L IPR, GLYHGB #### [facility] [address] [place] [address] Supervisor Intelligence Analyst: Placido Pierce MD #### CP #### [facility] [address] [place] [address] Supervisor Intelligence Analyst: Emily George MD #### INSU #### [facility] [address] [place], [place] [phone] Supervisor Intelligence Analyst: Placido Pierce MD [facility] [address] [place], [place] [phone] Supervisor Intelligence Analyst: Emily George MD Urea nitrogen [Mass/Vol] 18 mg/dL Normal 6-20 [facility] Comment on above: Performed By: #### L IPR, GLYHGB #### [facility] [address] [place] [address] Supervisor Intelligence Analyst: Placido Pierce MD #### CP #### [facility] [address] [place], [place] [id number] Supervisor Intelligence Analyst: Emily George MD #### INSU #### [facility] [address] [place] [address] Supervisor Intelligence Analyst: Placido Pierce MD [facility] [address] [place], [place] [phone] Supervisor Intelligence Analyst: Emily George MD Comprehensive Metabolic Pane [facility] 04-14-2025 Albumin [Mass/Vol] 4.2 g/dL 3.5 - 5.2 g/dL [facility] Albumin/Globulin [Mass ratio] 1.4 {ratio} 1.0 - 2.5 [facility] ALP [Catalytic activity/Vol] 109 U/L High 35 - 104 U/L [facility] ALT [Catalytic activity/Vol] 23 U/L 5 - 33 U/L [facility] Anion gap [Moles/Vol] 14 mmol/L 9 - 17 mmol/L [facility] AST [Catalytic activity/Vol] 22 U/L NINF - 32 U/L [facility] Bilirubin [Mass/Vol] 0.5 mg/dL 0.3 - 1 .2 mg/dL [facility] Calcium [Mass/Vol] 9.4 mg/dL 8.6 - 10. 4 mg/dL [facility] Chloride [Moles/Vol] 99 mmol/L 98 - 10 7 mmol/L [facility] CO2 [Moles/Vol] 26 mmol/L 20 - 31 mmol/L [facility] Creatinine [Mass/Vol] 1.4 mg/dL High 0.5 - 0.9 mg/dL [facility] Est, Glom Filt Rate 47 Low - PINF [facility] Comment on above: These results are not [...] that affects renal tubular secretion. Glucose [Mass/Vol] 114 mg/dL High 70 - 99 mg/dL [facility] Interpretation and review of laboratory results Abnormal [facility] Potassium [Moles/Vol] 4.1 mmol/L 3.7 - 5.3 mmol/L [facility] Protein [Mass/Vol] 7.2 g/dL 6.4 - 8.3 g/dL [facility] Sodium [Moles/Vol] 139 mmol/L 135 - 144 mmol/L [facility] Urea nitrogen [Mass/Vol] 18 mg/dL 6 - 20 mg/dL [facility] Hemoglobin A1Con 04-14-2025 Average glucose Estimated from glycated hemoglobin (Bld) [Mass/Vol] 123 mg/dL [facility] Comment on above: The ADA and AACC rec ommend providing the estimated average glucose result to permit better patient understanding of their HBA1c result. HbA1c (Bld) [Mass fraction] 5.9 % 4.0 - 6.0 % [facility] Glucose [Mass/Vol] 123 mg/dL Normal [facility] Comment on above: Result Comment: The ADA and AACC recommend providing the estimated average glucose result to permit better patient understanding of their HBA1c result. Performed By: #### L IPR, GLYHGB ####[facility] [address] [place], [place] [phone] Director: Placido Pierce MD#### CP ####[facility] Wxg[address] [place], [place] [phone])[phone] Director: Emily George MD#### INSU ####[facility] [place], [place] [phone] Director: Placido Pierce, [facility] Hie[address] [place], [place] [phone] Director: Emily George MD HbA1c (Bld) [Mass fraction] 5.9 % Normal 4.0-6.0 [facility] Comment on above: Performed By: #### L IPR, GLYHGB ####[facility] [address] [place], [place] [phone] Director: Placido Pierce MD#### CP ####[facility] Jfi[address] [place], [place] [phone])[phone] Director: Emily George MD#### INSU ####[facility] [address]dsvy[address] [place], [place] [phone] Director: Placido Pierce, [facility] Zhn9429 [place], [place] [phone] Director: Emily George MD Insulinon 04-14-2025 Insulin 25.0 mU/L Normal [facility] Comment on above: Performed By: #### L IPR, GLYHGB ####[facility] [address]cm[address] [place], [place] [phone] Director: Placido Pierce MD#### CP ####[facility] Zko59[address] [place], [place] [phone] Director: Emily George MD#### INSU ####[facility] [place], [place] [phone] Director: Placido Pierce, [facility] Cbd[address]86 [place], [place] [phone] Director: Emily George MD Reference Range Normal [facility] Comment on above: Result Comment: Fast in.6-24.9 30 min: 20-112 60 min: 29-88 90 min: 26-84 120 min: 22-79 Performed By: #### L IPR, GLYHGB ####[facility] [place], [place] [phone] Director: Placido Pierce MD#### CP ####[facility] Rrt47[address] [place], [place] [phone] Director: Emily George MD#### INSU ####[facility] [place] [address] [phone] Director: Placido Pierce, [facility] Cwm[address]20 [place], [place] [phone] Director: Emily George MD Collection Info. FASTING Normal [facility] Comment on above: Performed By: #### L IPR, GLYHGB ####[facility] [address] [place], [place] [phone] Director: Placido Pierce MD#### CP ####[facility] [address] [place] [address] Lab Director: Emily George MD#### INSU ####[facility] [place], [place] [phone] Director: [facility] [address] [place] [address] Lab Director: Emily George MD Insulin, Totalon 04-14-2025 Insulin 25.0 mU/L [facility] Insulin Comment FASTING [facility] Insulin Reference Range: [facility] Comment on above: Fastin.6-24.9 30 min: 20-112 60 min: 29-88 90 min: 26-84 120 min: 22-79 Lipid Panelon 04-14-2025 Cholesterol [Mass/Vol] 158 mg/dL 0 - 199 mg/dL [facility] Comment on above: Cholesterol Guidelines: <200 Desirable 200-240 Borderline >240 Undesirable Cholesterol in HDL [Mass/Vol] 31 mg/dL Low 40 - PINF mg/dL [facility] Comment on above: HDL Guidelines: <40 Undesirable 40-59 Borderline >59 Desirable Cholesterol in LDL [Mass/Vol] 59 mg/dL 0 - 100 mg/dL [facility] Comment on above: LDL Guidelines: <100 Desirable 100-129 Near to/above Desirable 130-159 Borderline >159 Undesirable Direct (measured) LDL and calculated LDL are not interchangeable tests. Cholesterol in VLDL [Mass/Vol] 68 mg/dL High 1 - 30 mg/dL [facility] Cholesterol.total/Chol esterol in HDL [Mass ratio] 5.1 {ratio} High [facility] - 5.0 [facility] Interpretation and review of laboratory results Abnormal [facility] Triglyceride [Mass/Vol] 341 mg/dL High NINF - 150 mg/dL [facility] Comment on above: Triglyceride Guidelines: <150 Desirable 150-199 Borderline 200-499 High >499 Very high Based on AHA Guidelines for fasting triglyceride, July 2012. Lipid Profileon 04-14-2025 Cholesterol [Mass/Vol] 158 mg/dL Normal 0-199 [facility] Comment on above: Result Comment: Cholesterol Guidelines: <200 Desirable 200-240 Borderline >240 Undesirable Performed By: #### L IPR, GLYHGB ####[facility] [address] [place] [address] Lab Director: Placido Pierce MD#### CP ####[facility] Cdw[address]409 [place] [address] Lab Director: Emily George MD#### INSU ####[facility] [address] [place] [address] Lab Director: Placido Pierce, [facility] Ihj[address]118 [place] [address] Lab Director: Emily George MD Cholesterol in HDL [Mass/Vol] 31 mg/dL Low >40 [facility] Comment on above: Result Comment: HDL Guidelines: <40 Undesirable 40-59 Borderline >59 Desirable Performed By: #### L IPR, GLYHGB ####[facility] [address]ub[address] [place] [address] Lab Director: Placido Pierce MD#### CP ####[facility] Dds[address] [place] [address] Lab Director: Emily George MD#### INSU ####[place] [address] [place] [address] Lab Director: Placido Pierce, [facility] Odv5437 [place] [address] Lab Director: Emily George MD Cholesterol in LDL [Mass/Vol] 59 mg/dL Normal 0-100 [facility] Comment on above: Result Comment: LDL Guidelines: <100 Desirable 100-129 Near to/above Desirable 130-159 Borderline >159 Undesirable Direct (measured) LDL and calculated LDL are not interchangeable tests. Performed By: #### L IPR, GLYHGB ####[facility] [address] [place] [address] Lab Director: Placido Pierce MD#### CP ####[facility] Bco[address] [place], [place] [phone] Director: Emily George MD#### INSU ####[address] [place], [place] [phone] Director: Placido Pierce, [facility] Ibv1815 [place] [address] Lab Director: Emily George MD Cholesterol in VLDL [Mass/Vol] 68 mg/dL High 1-30 [facility] Comment on above: Performed By: #### L IPR, GLYHGB ####[facility] [address] [place] [address] Lab Director: Placido Pierce MD#### CP ####[facility] Ltu1590 [place] [address] Lab Director: Emily George MD#### INSU ####[address] [phone])[phone] Director: Placido Pierce, [facility] [address] [place] [address] 138[address])[phone] Director: Emily George MD Cholesterol.total/Chol esterol in HDL [Mass ratio] 5.1 {ratio} High <5.0 [facility] Comment on above: Performed By: #### L IPR, GLYHGB ####[facility] V[address]ef[address] [place], [place] [phone] Director: Placido Pierce MD#### CP ####[facility] Tly[address] [place] [phone] Director: Emily George MD#### INSU ####[facility] [place] [address] [phone] Director: Placido Pierce, [facility] Hrn6[address] [place], [place] [phone] Director: Emily George MD Triglyceride [Mass/Vol] 341 mg/dL High <150 [facility] Comment on above: Result Comment: Triglyceride Guidelines: <150 Desirable 150-199 Borderline 200-499 High >499 Very high Based on AHA Guidelines for fasting triglyceride, July 2012. Performed By: #### L IPR, GLYHGB ####[facility] [address] [place] [address] Lab Director: Placido Pierce MD#### CP ####[facility] Ugz2836 [place] [address] Lab Director: Emily George MD#### INSU ####[facility] [address] [place] [address] Lab Director: Placido Pierce [facility] Fwt6331 [place] [address] lab Director: Emily George MD No Panel Informationon 04-14 [facility] MR Foot - right WO and W con trast Chay 04-12-2025 1. There is an ulcer along the [...] again superimposed infection be difficult to include. [facility] RIS CONSOLIDATED EXAM: MRI FOOT RIGHT W WO CONTRAST [...] to a combination of osteoarthritis and Charcot arthropathy/neuropat hic joint disease. Superimposed infection is difficult to [...] atrophic change likely related to chronic neuropathy. [facility] RIS CONSOLIDATED Hesham Mcarthur MD - 04/12/2025 EXAM: MRI [...] to a combination of osteoarthritis and Charcot arthropathy/neuropat hic joint disease. Superimposed infection is difficult to [...] again superimposed infection be difficult to include. [facility] MR Foot - right WO and W con trast IVOrdered By: Hesham Mcarthur on 04-12-2025 [facility] Work Phone: MRI FOOT RIGHT W WO CONTRAST on 04-12-2025 EXAM: MRI FOOT RIGHT W WO CONTRAST [...] to a combination of osteoarthritis and Charcot arthropathy/neuropat hic joint disease. Superimposed infection is difficult to [...] by: Hesham Mcarthur MD 04/12/25 Final result [facility] [place] Radiology, Radiologist, - 04/12/2025 EXAM: MRI FOOT [...] to a combination of osteoarthritis and Charcot arthropathy/neuropat hic joint disease. Superimposed infection is difficult to [...] by: Hesham Mcarthur MD 04/12/25 Final result [facility] MRI FOOT RIGHT W WO CONTRAST EXAM: MRI FOOT RIGHT W WO CONTRAST [...] to a combination of osteoarthritis and Charcot arthropathy/neuropat hic joint disease. Superimposed infection is difficult to [...] by: Hesham Mcarthur MD 04/12/[address] [facility] Radiology Study observation (narrative) [facility] MRI FOOT RIGHT W WO CONTRAST Ordered By: Radiologist Radiology on 04-12-2025 [facility] Work Phone: BUN & Creatinineon 5 Creatinine [Mass/Vol] 1.3 mg/dL High 0.5 - 0.9 mg/dL [facility] Est, Glom Filt Rate 52 Low - PINF [facility] Comment on above: These results are not [...] following therapy that affects renal tubular secretion. Interpretation and review of laboratory results Abnormal [facility] Urea nitrogen [Mass/Vol] 15 mg/dL 6 - 20 mg/dL [facility] BUN + Creatinineon 5 Creatinine [Mass/Vol] 1.3 mg/dL High 0.5-0.9 [facility] Comment on above: Performed By: #### B UNCRT #### [facility] [address] [place] [address] Supervisor Intelligence Analyst: Emily George MD GFR/1.73 sq M.predicted among non-blacks MDRD (S/P/Bld) [Vol rate/Area] 52 mL/min/{1.73_m2} Low >60 [facility] Comment on above: Result Comment: These [...] renal tubular secretion. Performed By: #### B UNCRT #### [facility] [address] [place], [place] [phone] Supervisor Intelligence Analyst: Emily George MD Urea nitrogen [Mass/Vol] 15 mg/dL Normal 6-20 [facility] Comment on above: Performed By: #### B UNCRT #### [facility] [address] [place], [place] [phone] Supervisor Intelligence Analyst: Emily George MD MHPT BUN + CREATININEon Creatinine [Mass/Vol] 1.3 mg/dL High 0.5 - 0.9 mg/dL [facility] Interpretation and review of laboratory results Abnormal [facility] Low - PINF [facility] Comment on above: These results are not [...] affects renal tubular secretion. Urea nitrogen [Mass/Vol] 15 mg/dL 6 - 20 mg/dL [facility] Original Ordering Provider[facility] - right WO and W tania trast Chay 04-11-2025 Radiology Study observation (narrative) [facility] XR Foot - right 2 [facility] Result: XRAY RIGHT FOOT: AP/OBL- No fx. Lis franc diastasis concern with deformity. DP 2 mild cortical disruption 1-2mm possible. No bone density changes [facility] Cult,Woundon 04-08-2025 Cult,Wound Specimen Description .TOE Direct Exam NO NEUTROPHILS SEEN NO ORGANISMS SEEN Culture METHICILLIN RESISTANT STAPHYLOCOCCUS AUREUS LIGHT GROWTH NORMAL SKIN JOSE Report Status FINAL 04/08/2025 SUSCEPTIBILITY Organism METHICILLIN RESISTANT STAPHYLOCOCCUS AUREUS Method SONIA Penicillin >=0.5 RESISTANT Clindamycin <=0.25 SUSCEPTIBLE Erythromycin >=8 RESISTANT Gentamicin <=0.5 SUSCEPTIBLE Gentamicin is used only in combination with other active agents that test susceptible. Induced Clind Resist NEGATIVE Levofloxacin 4 INTERMEDIATE Oxacillin >=4 RESISTANT Tetracycline <=1 SUSCEPTIBLE Trimethoprim/Sulfa <=10 SUSCEPTIBLE Vancomycin [address] [facility] Comment on above: Performed By: #### W DC ####[facility] [place], [place] [phone] Lab Director: Placido Pierce [facility] Hvc38[address] [place], [place] [phone] Lab Director: Emily George MD XR Foot - right 2 [facility] Rad[facility] Study observation (narrative) [facility] Brain Natri. Peptideon 04-04 Natriuretic peptide B (Bld) [Mass/Vol] 262 pg/mL Normal <300 [facility] Comment on above: Result Comment: An a ge-independent cutoff point of 300 pg/ml has a 98% negative predictive value excluding acute heart failure. Performed By: #### B EMISSIONS REPAIR TECHNICIAN, SED, CRP #### [facility] [address] [place] [address] Supervisor Intelligence Analyst: Emily George MD Brain Natriuretic Peptideon 04-04-2025 Natriuretic peptide B (Bld) [Mass/Vol] 262 pg/mL NINF - 300 pg/mL [facility] Comment on above: An age-independent c utoff point of 300 pg/ml has a 98% negative predictive value excluding acute heart failure. C-Reactive Proteinon 025 CRP High sensitivity method [Mass/Vol] 46.7 mg/L High 0.0 - 5.0 mg/L [facility] Interpretation and review of laboratory results Abnormal [facility] CRP [Mass/Vol] 46.7 mg/L High 0.0-5.0 [facility] Comment on above: Performed By: #### B EMISSIONS REPAIR TECHNICIAN, SED, CRP #### [facility] [address] [place] [address] Supervisor Intelligence Analyst: Emily George MD CBC with Auto Differentialon 04-04-2025 Basophils (Bld) [#/Vol] 0.02 10*3/uL [facility] Basophils/100 WBC (Bld) 0 % 0 - 2 % [facility] Eosinophils (Bld) [#/Vol] 0.07 10*3/uL [facility] Eosinophils/100 WBC (Bld) 1 % 0 - 5 % [facility] Erythrocyte distribution width (RBC) [Ratio] 18.4 % High 12.1 - 15.2 % [facility] Hematocrit (Bld) [Volume fraction] 30 % Low 36.0 - 46.0 % [facility] Hemoglobin (Bld) [Mass/Vol] 9.6 g/dL Low 12.0 - 16.0 g/dL [facility] Immature granulocytes (Bld) [#/Vol] 0.13 10*3/uL [facility] Immature granulocytes/100 WBC (Bld) 2 % 0 - 5 % [facility] Interpretation and review of laboratory results Abnormal [facility] Lymphocytes/100 WBC (Bld) 23 % 15 - 40 % [facility] Lymphocytes/100 WBC (Bld) 1.39 % [facility] MCH (RBC) [Entitic mass] 27 pg 26.0 - 34.0 pg [facility] MCHC (RBC) [Mass/Vol] 32 g/dL 31.0 - 37.0 g/dL [facility] MCV (RBC) [Entitic vol] 84.3 fL 80.0 - 100.0 fL [facility] Monocytes/100 WBC (Bld) 6 % 4 - 8 % [facility] Monocytes/100 WBC (Bld) 0.37 % [facility] Neutrophils/100 WBC (Bld) 68 % 47 - 75 % [facility] Platelet mean volume (Bld) [Entitic vol] 11.7 fL 6.0 - 12.0 fL [facility] Platelets (Bld) [#/Vol] 186 10*3/uL [facility] RBC (Bld) [#/Vol] 3.56 10*6/uL Low 4.00 - 5.2 0 m/uL [facility] Segmented neutrophils/100 WBC (Bld) 4.09 % [facility] WBC other (Bld) [#/Vol] 6.1 [facility] CBC with Diffon 04-04-2025 Abs. Basophil 0.02 k/uL Normal 0.00-0.20 [facility] Comment on above: Performed By: #### C DP #### [facility] [address] [place] [address] Supervisor Intelligence Analyst: Emily George MD Abs.Imm.Granulocyte 0.13 k/uL Normal 0.00-0.30 [facility] Comment on above: Performed By: #### C DP #### [facility] [address] [place] [address] Supervisor Intelligence Analyst: Emily George MD Abs.Neutrophil (Seg) 4.09 k/uL Normal 2.5-7.0 [facility] Comment on above: Performed By: #### C DP #### [facility] [address] [place] [address] Supervisor Intelligence Analyst: Emily George MD Basophils/100 WBC (Bld) 0 % Normal 0-2 [facility] Comment on above: Performed By: #### C DP #### [facility] [address] [place] [address] Supervisor Intelligence Analyst: Emily George MD Eosinophils (Bld) [#/Vol] 0.07 10*3/uL Normal 0.00-0.40 [facility] Comment on above: Performed By: #### C DP #### [facility] [address] [place] [phone] Supervisor Intelligence Analyst: Emily George MD Eosinophils/100 WBC (Bld) 1 % Normal 0-5 [facility] Comment on above: Performed By: #### C DP #### [facility] [address] [place] [address] Supervisor Intelligence Analyst: Emily George MD Erythrocyte distribution width (RBC) [Ratio] 18.4 % High 12.1-15.2 [facility] Comment on above: Performed By: #### C DP #### [facility] [address] [place] [address] Supervisor Intelligence Analyst: Emily George MD Hematocrit (Bld) [Volume fraction] 30.0 % Low 36.0-46.0 [facility] Comment on above: Performed By: #### C DP #### [facility] [address] [place] [address] Supervisor Intelligence Analyst: Emily George MD Hemoglobin (Bld) [Mass/Vol] 9.6 g/dL Low 12.0-16.0 [facility] Comment on above: Performed By: #### C DP #### [facility] [address] [place] [address] Supervisor Intelligence Analyst: Emily George MD Immature granulocytes/100 WBC (Bld) 2 % Normal 0-5 [facility] Comment on above: Performed By: #### C DP #### [facility] [address] [place] [address] Supervisor Intelligence Analyst: Emily George MD Lymphocytes (Bld) [#/Vol] 1.39 10*3/uL Normal 1.00-4.80 [facility] Comment on above: Performed By: #### C DP #### [facility] [address] [place] [address] Supervisor Intelligence Analyst: Emily George MD Lymphocytes/100 WBC (Bld) 23 % Normal 15-40 [facility] Comment on above: Performed By: #### C DP #### [facility] [address] [place] [address] Supervisor Intelligence Analyst: Emily George MD MCH (RBC) [Entitic mass] 27.0 pg Normal 26.0-34.0 [facility] Comment on above: Performed By: #### C DP #### [facility] [address] [place] [address] Supervisor Intelligence Analyst: Emily George MD MCHC (RBC) [Mass/Vol] 32.0 g/dL Normal 31.0-37.0 [facility] Comment on above: Performed By: #### C DP #### [facility] [address] [place] [address] Supervisor Intelligence Analyst: Emily George MD MCV (RBC) [Entitic vol] 84.3 fL Normal 80.0-100.0 [facility] Comment on above: Performed By: #### C DP #### [facility] [address] [place] [address] Supervisor Intelligence Analyst: Emily George MD Monocytes (Bld) [#/Vol] 0.37 10*3/uL Normal 0.00-1.00 [facility] Comment on above: Performed By: #### C DP #### [facility] [address] [place] [address] Supervisor Intelligence Analyst: Emily George MD Monocytes/100 WBC (Bld) 6 % Normal 4-8 [facility] Comment on above: Performed By: #### C DP #### [facility] [address] [place] [address] Supervisor Intelligence Analyst: Emily George MD Neutrophil (Seg) 68 % Normal 47-75 [facility] Comment on above: Performed By: #### C DP #### [facility] [address] [place] [address] Supervisor Intelligence Analyst: Emily George MD Platelet mean volume (Bld) [Entitic vol] 11.7 fL Normal 6.0-12.0 [facility] Comment on above: Performed By: #### C DP #### [facility] [address] [place], [place] [phone] Supervisor Intelligence Analyst: Emily George MD Platelets (Bld) [#/Vol] 186 10*3/uL Normal 140-450 [facility] Comment on above: Performed By: #### C DP #### [facility] [address] [place] [address] [phone] Supervisor Intelligence Analyst: Emily George MD RBC (Bld) [#/Vol] 3.56 10*6/uL Low 4.00-5.20 [facility] Comment on above: Performed By: #### C DP #### [facility] [address] [place] [address] [phone] Supervisor Intelligence Analyst: Emily George MD WBC (Bld) [#/Vol] 6.1 10*3/uL Normal 3.5-11.0 [facility] Comment on above: Performed By: #### C DP #### [facility] [address] [place] [address] [phone] Supervisor Intelligence Analyst: Emily George MD No Panel Informationon 04-04 No acute osseous injury. Soft tissue swelling of the left great toe on the right second toe without radiographic evidence of osteomyelitis. Postsurgical changes partially imaged on the left. [facility] RIS CONSOLIDATED EXAM: XR TOE LEFT (MIN 2 VIEWS), [...] blastic bony lesions. There is normal mineralization. [facility] Daksha Garcia MD - 04/04/2025 EXAM: XR TOE LEFT [...] Postsurgical changes partially imaged on the left. [facility] Simtrol [facility] No Panel InformationOrdered By: Daksha Hannah on 04-04-2025 [facility] [employer] Work Phone: Sedimentation Rateon 025 ESR Photometric method (Bld) [Velocity] 32 High [facility] Interpretation and review of laboratory results Abnormal [facility] Sedimentation Rate 32 mm/Hr High 0-20 [facility] Comment on above: Performed By: #### B EMISSIONS REPAIR TECHNICIAN, SED, CRP #### [facility] [address] [place] [address] Supervisor Intelligence Analyst: Emily George MD XR TOE LEFT (MIN 2 VIEWS)on 04-04-2025 XR TOE LEFT (MIN 2 VIEWS) EXAM: XR TOE LEFT (MIN 2 VIEWS), [...] Postsurgical changes partially imaged on the left. Interpreted by: Daksha Hannah MD Signed by: Daksha Hannah MD 04/04/[address] [facility] XR TOE RIGHT (MIN 2 VIEWS)on 04-04-2025 XR TOE RIGHT (MIN 2 VIEWS) EXAM: XR TOE LEFT (MIN 2 VIEWS), [...] Postsurgical changes partially imaged on the left. Interpreted by: Daksha Hannah MD Signed by: Daksha Hannah MD 04/04/[address] [facility] XR Toes - left 2 [facility] Study observation (narrative) [facility] XR Toes - right 2 [facility] Rad[facility] Study observation (narrative) [facility] BRIAN DIGITAL SCREEN BILA TERALon 02-28-2025 [facility] BRIAN DIGITAL SCREEN BILATERAL HISTORY: Screening. TECHNIQUE: Bilateral digital screening mammogram [...] skin lesions and linear markers represent scars.) IMPRESSION: OVERALL ASSESSMENT: BIRADS: 1 Negative, no evidence of malignancy. A letter of notification will be mailed to the patient. Performing Facility: [facility] [address] [place] [id number] Interpreted by: Micky Lauren Jr., MD Signed by: Micky Lauren Jr., MD 02/28/[address] [facility] Comp Metabolic Profon 2024 Albumin [Mass/Vol] 3.8 g/dL Normal 3.5-5.2 [facility] Comment on above: Performed By: #### G LYHGB, LIPR, LDLDIR ####[place] [address] [place] [address] Lab Director: Placido Pierce MD#### CP ####[facility] Kpx[address] [place] [address] Lab Director: Emily George MD Alkaline Phos 115 U/L High 35-104 [facility] Comment on above: Performed By: #### G LYHGB, LIPR, LDLDIR ####[facility] [address] [place] [address] Lab Director: Placido Pierce MD#### CP ####[facility] Pbb[address] [place] [address] Lab Director: Emily George MD ALT [Catalytic activity/Vol] 11 U/L Normal 5-33 [facility] Comment on above: Performed By: #### G LYHGB, LIPR, LDLDIR ####[place] [place] [address] Lab Director: Placido Pierce MD#### CP ####[facility] Ydk1808 [place], [place] [phone] Director: Emily George MD Anion gap [Moles/Vol] 12 mmol/L Normal 9-17 [facility] Comment on above: Performed By: #### G LYHGB, LIPR, LDLDIR ####[facility] [place] [address] Lab Director: Placido Pierce MD#### CP ####[facility] Iqd[address] [place] [address] Lab Director: Emily George MD AST [Catalytic activity/Vol] 14 U/L Normal <32 [facility] Comment on above: Performed By: #### G LYHGB, LIPR, LDLDIR ####[facility] [place] [address] Lab Director: Placido Pierce MD#### CP ####[facility] [address] [place] [address] Lab Director: Emily George MD Bilirubin [Mass/Vol] 0.4 mg/dL Normal 0.3-1.2 [facility] Comment on above: Performed By: #### G LYHGB, LIPR, LDLDIR ####[facility] [place] [address] Lab Director: Placido Pierce MD#### CP ####[facility] [address] [place] [address] Lab Director: Emily George MD BUN/CRE Ratio 19 Normal 9-20 [facility] Comment on above: Performed By: #### G LYHGB, LIPR, LDLDIR ####[facility] [place], [place] [phone] Director: Placido Pierce MD#### CP ####[facility] Fus[address] [place], [place] [phone] Director: Emily George MD Calcium [Mass/Vol] 9.3 mg/dL Normal 8.6-10.4 [facility] Comment on above: Performed By: #### G LYHGB, LIPR, LDLDIR ####[facility] [place] [address] Lab Director: Placido Pierce MD#### CP ####[facility] Spq[address] [place] [address] Lab Director: Emily George MD Chloride [Moles/Vol] 102 mmol/L Normal 98-107 [facility] Comment on above: Performed By: #### G LYHGB, LIPR, LDLDIR ####[place] [place] [address] Lab Director: Placido Pierce MD#### CP ####[facility] Dwg28[address] [place] [address] Lab Director: Emily George MD CO2 [Moles/Vol] 25 mmol/L Normal 20-31 [facility] Comment on above: Performed By: #### G LYHGB, LIPR, LDLDIR ####[place] [place] [address] Lab Director: Placido Pierce MD#### CP ####[facility] Zju[address] [place] [address] Lab Director: Emily George MD Creatinine [Mass/Vol] 1.1 mg/dL High 0.5-0.9 [facility] Comment on above: Performed By: #### G LYHGB, LIPR, LDLDIR ####[address] [address] Lab Director: Placido Pierce MD#### CP ####[facility] Uuk[address] [place] [address] Lab Director: Emily George MD GFR/1.73 sq M.predicted among non-blacks MDRD (S/P/Bld) [Vol rate/Area] 63 mL/min/{1.73_m2} Normal >60 [facility] Comment on above: Result Comment: These [...] Performed By: #### G LYHGB, LIPR, LDLDIR ####[place] [place] [address] Lab Director: Placido Pierce MD#### CP ####[facility] Ama[address] [place], [place] [phone] Lab Director: Emily George MD Glucose [Mass/Vol] 125 mg/dL High 70-99 [facility] Comment on above: Performed By: #### G LYHGB, LIPR, LDLDIR ####[address] [address] Lab Director: Placdio Pierce MD#### CP ####[facility] Vih[address] [place], [place] [phone] Lab Director: Emily George MD Potassium [Moles/Vol] 4.2 mmol/L Normal 3.7-5.3 [facility] Comment on above: Performed By: #### G LYHGB, LIPR, LDLDIR ####[address] [address] Lab Director: Placido Pierce MD#### CP ####[facility] [address] [place], [place] [phone] Lab Director: Emily George MD Protein [Mass/Vol] 7.2 g/dL Normal 6.4-8.3 [facility] Comment on above: Performed By: #### G LYHGB, LIPR, LDLDIR ####[facility] [address] [place] [address] Lab Director: Placido Pierce MD#### CP ####[facility] Dxk9[address] [place], [place] [phone] Lab Director: Emily George MD Sodium [Moles/Vol] 139 mmol/L Normal 135-144 [facility] Comment on above: Performed By: #### G LYHGB, LIPR, LDLDIR ####[facility] [address] [place] [address] Lab Director: Placido Pierce MD#### CP ####[facility] Diz[address] [place], [place] [id number] Lab Director: Emily George MD Urea nitrogen [Mass/Vol] 21 mg/dL High 6-20 [facility] Comment on above: Performed By: #### G LYHGB, LIPR, LDLDIR ####[facility] [address]zt[address] [place] [address] Lab Director: Placido Pierce MD#### CP ####[facility] Lza6020 [place], [place] [phone] Lab Director: Emily George MD Comprehensive Metabolic Pane [facility] 11-14-2024 Albumin [Mass/Vol] 3.8 g/dL 3.5 - 5.2 g/dL [facility] ALP [Catalytic activity/Vol] 115 U/L High 35 - 104 U/L [facility] ALT [Catalytic activity/Vol] 11 U/L 5 - 33 U/L [facility] Anion gap [Moles/Vol] 12 mmol/L 9 - 17 mmol/L [facility] AST [Catalytic activity/Vol] 14 U/L NINF - 32 U/L [facility] Bilirubin [Mass/Vol] 0.4 mg/dL 0.3 - 1 .2 mg/dL [facility] Calcium [Mass/Vol] 9.3 mg/dL 8.6 - 10. 4 mg/dL [facility] Chloride [Moles/Vol] 102 mmol/L 98 - 10 7 mmol/L [facility] CO2 [Moles/Vol] 25 mmol/L 20 - 31 mmol/L [facility] Creatinine [Mass/Vol] 1.1 mg/dL High 0.5 - 0.9 mg/dL [facility] Sariah Hahn Filt Rate 63 - PINF [facility] Comment on above: These results are not [...] mg/dL High 70 - 99 mg/dL [facility] Interpretation and review of laboratory results Abnormal [facility] Potassium [Moles/Vol] 4.2 mmol/L 3.7 - 5.3 mmol/L [facility] Protein [Mass/Vol] 7.2 g/dL 6.4 - 8.3 g/dL [facility] Sodium [Moles/Vol] 139 mmol/L 135 - 144 mmol/L [facility] Urea nitrogen [Mass/Vol] 21 mg/dL High 6 - 20 mg/dL [facility] Urea nitrogen/Creatinine [Mass ratio] 19 mg/mg 9 - 20 [facility] Hemoglobin A1Con 11-14-2024 Average glucose Estimated from glycated hemoglobin (Bld) [Mass/Vol] 103 mg/dL [facility] Comment on above: The ADA and AACC rec ommend providing the estimated average glucose result to permit better patient understanding of their HBA1c result. HbA1c (Bld) [Mass fraction] 5.2 % 4.0 - 6.0 % [facility] Glucose [Mass/Vol] 103 mg/dL Normal [facility] Comment on above: Result Comment: The ADA and AACC recommend providing the estimated average glucose result to permit better patient understanding of their HBA1c result. Performed By: #### G LYHGB, LIPR, LDLDIR ####[address] [place] [address] Lab Director: Placido Pierce MD#### CP ####[facility] [address] [place] [address] Lab Director: Emily Geogre MD HbA1c (Bld) [Mass fraction] 5.2 % Normal 4.0-6.0 [facility] Comment on above: Performed By: #### G LYHGB, LIPR, LDLDIR ####[address] [address] Lab Director: Placido Pierce MD#### CP ####[facility] [address] [place] [address] lab Director: Emily George MD LDL Chol, Directon LDL Chol, Direct 94 mg/dL Normal <100 [facility] Comment on above: Performed By: #### G LYHGB, LIPR, LDLDIR ####[address] [address] Lab Director: Placido Pierce MD#### CP ####[facility] [address] [place] [address] Lab Director: Emily George MD LDL Cholesterol, Directon Cholesterol in LDL [Mass/Vol] 94 mg/dL NINF - 100 mg/dL [facility] Lipid Panelon 11-14-2024 Cholesterol [Mass/Vol] 179 mg/dL 0 - 199 mg/dL [facility] Comment on above: Cholesterol Guidelines: <200 Desirable 200-240 Borderline >240 Undesirable Cholesterol in HDL [Mass/Vol] 31 mg/dL Low 40 - PINF mg/dL [facility] Comment on above: HDL Guidelines: <40 Undesirable 40-59 Borderline >59 Desirable Cholesterol in LDL [Mass/Vol] Can not be calculated 0 - 100 mg/dL [facility] Comment on above: LDL Guidelines: <100 Desirable 100-129 Near to/above Desirable 130-159 Borderline >159 Undesirable Direct (measured) LDL and calculated LDL are not interchangeable tests. Cholesterol in VLDL [Mass/Vol] Can not be calculated 1 - 30 mg/dL [facility] Cholesterol.total/Chol esterol in HDL [Mass ratio] 5.8 {ratio} [facility] Interpretation and review of laboratory results Abnormal [facility] Triglyceride [Mass/Vol] 407 mg/dL High NINF - 150 mg/dL [facility] Comment on above: Triglyceride Guidelines: <150 Desirable 150-199 Borderline 200-499 High >499 Very high Based on AHA Guidelines for fasting triglyceride, July 2012. [facility] Lipid Profileon 11-14-2024 Cholesterol [Mass/Vol] 179 mg/dL Normal 0-199 [facility] Comment on above: Result Comment: Cholesterol Guidelines: <200 Desirable 200-240 Borderline >240 Undesirable Performed By: #### G LYHGB, LIPR, LDLDIR ####[facility] [address] [place] [address] Lab Director: Placido Pierce MD#### CP ####[facility] [address] [place] [address] lab Director: Emily George MD Cholesterol in HDL [Mass/Vol] 31 mg/dL Low >40 [facility] Comment on above: Result Comment: HDL Guidelines: <40 Undesirable 40-59 Borderline >59 Desirable Performed By: #### G LYHGB, LIPR, LDLDIR ####[facility] [address] [place] [address] Lab Director: Placido Pierce MD#### CP ####[facility] [address] [place], [place] [phone] Lab Director: Emily George MD Cholesterol,LDL Can not be calculated Normal 0-100 [facility] Comment on above: Result Comment: LDL Guidelines: <100 Desirable 100-129 Near to/above Desirable 130-159 Borderline >159 Undesirable Direct (measured) LDL and calculated LDL are not interchangeable tests. Performed By: #### G LYHGB, LIPR, LDLDIR ####[facility] [place], [place] [phone] Director: Placido Pierce MD#### CP ####[facility] [address] [place], [place] [phone] Director: Emily George MD Cholesterol,VLDL Can not be calculated Normal 1-30 [facility] Comment on above: Performed By: #### G LYHGB, LIPR, LDLDIR ####[address] [phone] Director: Placido Pierce MD#### CP ####[facility] [address] [place], [place] [phone] Director: Emily George MD Cholesterol.total/Chol esterol in HDL [Mass ratio] 5.8 {ratio} Normal [facility] Comment on above: Performed By: #### G LYHGB, LIPR, LDLDIR ####[address] [phone] Director: Placido Pierce MD#### CP ####[facility] [address] [place], [place] [phone] Director: Emily George MD Triglyceride [Mass/Vol] 407 mg/dL High <150 [facility] Comment on above: Result Comment: Triglyceride Guidelines: <150 Desirable 150-199 Borderline 200-499 High >499 Very high Based on AHA Guidelines for fasting triglyceride, July 2012. Performed By: #### G LYHGB, LIPR, LDLDIR ####[address] [place], [place] [phone] Director: Placido Pierce MD#### CP ####[facility] [address] [place] [address] lab Director: Emily George MD US THYROIDon 09-07-2024 US [...] Lauren Jr., MD 09/07/[address] 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 (Follow if greater than or equal to 0.5 cm annually until 5 years according to ACR TI-RADS recommendations). Continued follow-up annually is recommended through 2026. [facility] EXAM: US THYROID HISTORY: [...] 1.7 x 1.3 cm. Isthmus: 0.2 cm [facility] Micky Lauren Jr., MD [...] Continued follow-up annually is recommended through 2026. [facility] [employer] US Thyroid glandOrdered By: Micky Lauren on 09-07-2024 [facility] [employer] Work Phone: US Thyroid glandon Radiology Study observation (narrative) [facility] Magnesiumon 05-10-2024 Magnesium [Mass/Vol] 2.2 mg/dL 1.6 - 2 .6 mg/dL [facility] [employer] No Panel Informationon 05-10 [facility] [employer] Protein / creatinine ratio, urineon 05-10-2024 Creatinine (U) [Mass/Vol] 132.0 mg/dL 28.0 - 217.0 mg/dL [facility]TSMail[facility] Protein (U) [Mass/Vol] 9 mg/dL [facility] Comment on above: No normal range esta blished. Urine Total Protein Creatinine Ratio 0.07 [facility]ETTSMaestrano [facility] CENTERMailTime Renal Function Panelon 05-10 Albumin [Mass/Vol] 4.2 g/dL 3.5 - 5.2 g/dL [facility]TSMail[facility] Anion gap [Moles/Vol] 15 mmol/L 9 - 17 mmol/L [facility] Calcium [Mass/Vol] 9.2 mg/dL 8.6 - 10. 4 mg/dL [facility] Chloride [Moles/Vol] 101 mmol/L 98 - 10 7 mmol/L [facility] CO2 [Moles/Vol] 25 mmol/L 20 - 31 mmol/L [facility] Creatinine [Mass/Vol] 1.3 mg/dL High 0.5 - 0.9 mg/dL [facility] Sariah Hahn Rate 52 Low - PINF [facility] Comment on above: These results are [...] 141 mg/dL High 70 - 99 mg/dL [facility] Interpretation and review of laboratory results Abnormal [facility] Phosphate [Mass/Vol] 3.8 mg/dL 2.6 - 4 .5 mg/dL [facility] Potassium [Moles/Vol] 4.0 mmol/L 3.7 - 5.3 mmol/L [facility] Sodium [Moles/Vol] 141 mmol/L 135 - 144 mmol/L [facility] Urea nitrogen [Mass/Vol] 19 mg/dL 6 - 20 mg/dL [facility] Urea nitrogen/Creatinine [Mass ratio] 15 mg/mg 9 - 20 [facility] Urinalysison 05-10-2024 Bilirubin Ql (U) Negative NEGATIVE [facility] Clarity (U) Clear Clear [facility] Color (U) Yellow Yellow [facility] Comment [facility] Glucose Test strip (U) [Mass/Vol] Negative NEGATIVE mg/dL [facility] Hemoglobin Auto test strip Ql (U) Negative NEGATIVE [facility] Interpretation and review of laboratory results Abnormal [facility] Ketones (U) [Mass/Vol] Negative NEGAT BEATRIZ mg/dL [facility] Leukocyte esterase Test strip Ql (U) Negative NEGATIVE [facility] Nitrite Ql (U) Negative NEGATIVE [facility] pH (U) 5.0 [pH] 5.0 - 8.0 [facility] Protein (U) [Mass/Vol] TRACE Abnormal NEGAT BEATRIZ mg/dL [facility] [employer] Specific gravity (U) [Rel density] 1.020 1.005 - 1.030 [facility] [employer] Urobilinogen Qn (U) Normal 0.0 - 1. 0 EU/dL [facility] [employer] Ananda 02-15-2024 L Specimen: [id number] Received: 02/16/24 Status: ARLEN Dumont Num: [id number] Spec Type: Surgical Subm Dr: Frances Harris DPM, MS Tissues: A Soft Tissue/Surgical Margin-Other than Tumor,Mass,Lip or Becka (LT MID FOOT CH Procedures: HE/2, Gross/Micro L4 Age/ Patient Sex Location Account Attending Physician Celina Gaspar 43/F LABELL [id number] Frances Harris DPM, MS SPEC NUM: [id number] RECD: 02/16/24 STATUS: ARLEN LIUZahraa NUM: [id number] MAYTE: 02/15/[address]: Frances Harris DPM, MS ENTERED: 02/16/[address] [facility] [address]: Ursula,Lab SPEC TYPE: Surgical DEPT: [...] sections reveal firm, yellow spongy bone matrix. [employer] Assistant sections are submitted following decalcification in A1?A2. Clinical history: varus deformity left ankle, charcot join left ankle and foot. CPT Codes 65209 Specimen: [id number] Received: 02/16/24 Status: ARLEN Dumont Num: [id number] Spec Type: Surgical Subm Dr: Frances Harris,INDER, MS Tissues: A Soft Tissue/Surgical Margin-Other than Tumor,Mass,Lip or Becka (LT MID FOOT CH Procedures: HE/Stefan, Gross/Micro L4 Patient: Celina Gaspar [id number] (Continued) Signed (signature on file) Juan José Yu MD 02/17/24 1549 Normal [facility] Lipid Panelon 06-15-2023 Cholesterol [Mass/Vol] 174 mg/dL NINF - 200 mg/dL [facility] Comment on above: Cholesterol Guidelines: <200 Desirable 200-240 Borderline >240 Undesirable Cholesterol in HDL [Mass/Vol] 30 mg/dL Low 40 - PINF mg/dL [facility] Comment on above: HDL Guidelines: <40 Undesirable 40-59 Borderline >59 Desirable Cholesterol in LDL [Mass/Vol] 77 mg/dL 0 - 130 mg/dL [facility]TSMail[facility] Comment on above: LDL Guidelines: <100 Desirable 100-129 Near to/above Desirable 130-159 Borderline >159 Undesirable Direct (measured) LDL and calculated LDL are not interchangeable tests. Cholesterol.total/Chol esterol in HDL [Mass ratio] 5.8 {ratio} High NINF - 5 [facility]TSMailTime Interpretation and review of laboratory results Abnormal [facility]Mail[facility] Triglyceride [Mass/Vol] 334 mg/dL High NINF - 150 mg/dL [facility] Comment on above: Triglyceride Guidelines: <150 Desirable 150-199 Borderline 200-499 High >499 Very high Based on AHA Guidelines for fasting triglyceride, July 2012. [facility]TSMailTime BUN & Creatinineon Creatinine [Mass/Vol] 1.08 mg/dL High 0.50 - 0.90 mg/dL [facility]TSMailTime GFR/1.73 sq M.predicted MDRD (S/P/Bld) [Vol rate/Area] - PINF [facility]TSMailTime Comment on above: These results are not [...] 21 mg/dL High 6 - 20 mg/dL [facility] NoDaysOff CBC with Auto Differentialon 02-05-2023 Absolute Eos # 0.10 [place] [address] 51fanli Absolute Lymph # 1.70 [facility] URS [employer] Absolute Bradley # 0.50 [facility] RS 51fanli Basophils (Bld) [#/Vol] 0.00 10*3/uL [facility] [employer] Basophils/100 WBC (Bld) 1 % 0 - 2 % [facility]ETTSMailTime Differential Type YES [facility] Eosinophils/100 WBC (Bld) 1 % 0 - 5 % [facility] Hematocrit (Bld) [Volume fraction] 36.2 % 36 - 46 % [facility] Hemoglobin (Bld) [Mass/Vol] 12.2 g/dL 12.0 - 16.0 g/dL [facility] Interpretation and review of laboratory results Abnormal [facility] Lymphocytes/100 WBC (Bld) 23 % 15 - 40 % [facility] MCH (RBC) [Entitic mass] 28.7 pg 26 - 34 pg [facility] MCHC (RBC) [Mass/Vol] 33.7 g/dL 31 - 37 g/dL [facility] MCV (RBC) [Entitic vol] 85.3 fL 80 - 100 fL [facility] Monocytes/100 WBC (Bld) 7 % 4 - 8 % [facility] Platelet distribution width (Bld) [Ratio] 18.1 % High 12.1 - 15.2 % [facility] Platelets (Bld) [#/Vol] 150 10*3/uL [facility] RBC (Bld) [#/Vol] 4.25 10*6/uL 4.0 - 5.2 m/uL [facility] Segmented neutrophils/100 WBC (Bld) 68 % 47 - 75 % [facility] Segs Absolute 5.30 [facility] WBC (Bld) [#/Vol] 7.6 10*3/uL [facility] Chlorideon 02-05-2023 Chloride [Moles/Vol] 99 mmol/L 98 - 10 7 mmol/L [facility] Glucose, Randomon 02-05-2023 Glucose [Mass/Vol] 107 mg/dL High 70 - 99 mg/dL [facility] No Panel Informationon 02-05 Interpretation and review of laboratory results Abnormal [facility] Potassiumon 02-05-2023 Potassium [Moles/Vol] 4.6 mmol/L 3.7 - 5.3 mmol/L [facility] Sodiumon 02-05-2023 Sodium [Moles/Vol] 134 mmol/L Low 135 - 144 mmol/L [employer] Wet Prep, Genitalon 02-06-20 23 Interpretation and review of laboratory results Abnormal [facility] NoDaysOff Microorganism or agent identified Nom (Unsp spec) FEW WBC Abnormal [facility] NoDaysOff Microorganism or agent identified Nom (Unsp spec) MODERATE EPITHELIAL CELLS Abnormal [facility]TSMail[facility] Microorganism or agent identified Nom (Unsp spec) MODERATE BACTERIA Abnormal [facility]TSMail[facility] Microorganism or agent identified Nom (Unsp spec) NO TRICHOMONAS SEEN [facility]TSMailTime Microorganism or agent identified Nom (Unsp spec) NO FUNGAL ELEMENTS SEEN [facility]TSMailTime Microorganism or agent identified Nom (Unsp spec) NO CLUECELL SEEN [employer] Specimen Description .VAGINA [facility]TSMailTime [facility]Mail[facility] CT FOOT LT WO CONon 02-05-20 CT [...] EMILY ELY Date: 2023-02-04 20:14 Normal [facility] XR ANKLE LEFT 3+ VIEWS (ABDOULAYE [...] Mechanism of injury?:rolled ankle 4 days ago MRI FOOT LEFT W WO CONTRASTo n 06-25-2022 Combined with the accompanying radiographs, 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 [facility] EXAM: MRI FOOT LEFT [...] osteomyelitis. No nonenhancing abscess pockets are identified. [facility] Mike Villavicencio MD - [...] fragmentation of the navicular and cuneiform bones. [employer] Phone: Radiology Study observation (narrative) [employer] Phone: MRI FOOT LEFT W WO CONTRASTO rdered By: Mike Villavicencio on 06-25-2022 [employer] Phone: XR FOOT LEFT (2 VIEWS)on There is a linear metallic foreign body projecting between the second and third metatarsals. There is also a metallic foreign body within the lower leg. There is fragmentation of the navicular as well as of all 3 cuneiforms. The appearance is consistent with the patient's history of neuropathy. [facility] EXAM: XR FOOT LEFT (2 VIEWS) HISTORY: M79.5. The patient is a 42-year-old female. Evaluate for foreign body. COMPARISON: None. [facility] Mike Villavicencio MD - [...] consistent with the patient's history of neuropathy. 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 Clinical follow up recommended. Subcentimeter highly suspicious nodule in the right thyroid lobe 7 mm in greatest dimension. This meets criteria for annual follow up for 5 years. It does not meet criteria for FNA. [facility] EXAM: US HEAD [...] fat without shadowing, suggestive of a lipoma. [facility] Micky Lauren Jr., MD [...] It does not meet criteria for FNA. [facility] NoDaysOff Work Phone: Radiology Study observation (narrative) [facility]TSMail[facility] Work Phone: US HEAD NECK SOFT TISSUE THY ROIDOrdered By: Micky Lauren on 05-27-2022 [facility] NoDaysOff Work Phone: Rejection Notificationon Reason see below [facility] Comment on above: Result Comment: Unab le to perform testing; no specimen received. To perform testing the specimen will need to be recollected. No spec Performed By: #### R EJEC #### [facility] [address] [facility] [id number] Rejected Test CXURN [facility] Comment on above: Performed By: #### R EJEC #### [facility] [address] [facility] [id number] LDL Cholesterol, Directon Cholesterol in LDL [Mass/Vol] 84 mg/dL <100 [facility]TSReelBox Media Entertainment [facility] CENTERRebelMail [employer] CBC with Auto Differentialon 04-12-2022 Absolute Eos # 0.10 [facility] Absolute Lymph # 1.40 [facility] Absolute Bradley # 0.30 [facility] Basophils (Bld) [#/Vol] 0.00 10*3/uL [facility] Basophils/100 WBC (Bld) 1 % 0 - 2 % [facility] Differential Type YES [facility] Eosinophils/100 WBC (Bld) 1 % 0 - 5 % [facility] Hematocrit (Bld) [Volume fraction] 35.7 % Low 36 - 46 % [facility] Hemoglobin (Bld) [Mass/Vol] 12.0 g/dL 12.0 - 16.0 g/dL [facility] Interpretation and review of laboratory results Abnormal [facility] Lymphocytes/100 WBC (Bld) 25 % 15 - 40 % [facility] MCH (RBC) [Entitic mass] 28.0 pg 26 - 34 pg [facility] MCHC (RBC) [Mass/Vol] 33.7 g/dL 31 - 37 g/dL B [facility] MCV (RBC) [Entitic vol] 83.3 fL 80 - 100 fL [facility] Monocytes/100 WBC (Bld) 5 % 4 - 8 % [facility] Platelet distribution width (Bld) [Ratio] 16.4 % High 12.1 - 15.2 % [facility] Platelets (Bld) [#/Vol] 168 10*3/uL [facility] RBC (Bld) [#/Vol] 4.29 10*6/uL 4.0 - 5.2 m/uL [facility] Segmented neutrophils/100 WBC (Bld) 68 % 47 - 75 % [facility] Segs Absolute 3.90 [facility] WBC (Bld) [#/Vol] 5.7 10*3/uL [facility] SE [facility]RS [facility] Comprehensive Metabolic Pane ananda 04-12-2022 Albumin [Mass/Vol] 4.2 g/dL 3.5 - 5.2 g/dL [facility] ALP (Bld) [Catalytic activity/Vol] 88 U/L 35 - 104 U/L [facility] ALT [Catalytic activity/Vol] 29 U/L 5 - 33 U/L [facility] Anion gap [Moles/Vol] 11 mmol/L 9 - 17 mmol/L [facility] AST [Catalytic activity/Vol] 27 U/L <32 [facility] Bilirubin [Mass/Vol] 0.65 mg/dL 0.30 - 1.20 mg/dL [facility] Calcium [Mass/Vol] 9.1 mg/dL 8.6 - 10. 4 mg/dL [facility] Chloride [Moles/Vol] 101 mmol/L 98 - 10 7 mmol/L [facility] CO2 [Moles/Vol] 28 mmol/L 20 - 31 mmol/L [facility] Creatinine [Mass/Vol] 1.04 mg/dL High 0.50 - 0.90 mg/dL [facility] Free PSA/Total PSA [Mass fraction] 6.8 g/dL 6.4 - 8.3 g/dL [facility] GFR >60 >60 mL/min [facility] GFR Non- 58 mL/min Low >60 [facility] GFR/1.73 sq M.predicted MDRD (S/P/Bld) [Vol rate/Area] [facility] Comment on above: Average GFR for 40-4 9 years old: 99 mL/min/1.73sq m Chronic Kidney Disease: <60 mL/min/1.73sq m Kidney failure: <15 mL/min/1.73sq m eGFR calculated using average adult body mass. Additional eGFR calculator available at: http://www.[employer].SportID/multiple_crcl_2012.htm Glucose [Mass/Vol] 103 mg/dL High 70 - 99 mg/dL [facility] Interpretation and review of laboratory results Abnormal [facility] Potassium [Moles/Vol] 3.9 mmol/L 3.7 - 5.3 mmol/L [facility] Sodium [Moles/Vol] 140 mmol/L 135 - 144 mmol/L [facility] Urea nitrogen (BldV) [Mass/Vol] 13 mg/dL 6 - 20 mg/dL [facility] Urea nitrogen/Creatinine (Bld) [Mass ratio] 13 [facility] HIV Screenon 04-12-2022 HIV Ag/Ab Non-Reactive NONREACTIVE [facility] Comment on above: No laboratory eviden ce of HIV infection. If acute HIV infection is suspected, consider testing for HIV-1 RNA. [facility] Lipid Panelon 04-12-2022 Cholesterol [Mass/Vol] 184 mg/dL <200 [facility] Comment on above: Cholesterol Guidelines: <200 Desirable 200-240 Borderline >240 Undesirable Cholesterol in HDL [Mass/Vol] 30 mg/dL Low >40 [facility] Comment on above: HDL Guidelines: <40 Undesirable 40-59 Borderline >59 Desirable Cholesterol.total/Chol esterol in HDL [Mass ratio] 6.1 {ratio} High <5 [facility] Interpretation and review of laboratory results Abnormal [facility] LDL Cholesterol 0 - 130 mg/dL [facility] Comment on above: Calculation not jacqueline d for Triglyceride value greater than 400 mg/dL. Direct LDL reflexed LDL Guidelines: <100 Desirable 100-129 Near to/above Desirable 130-159 Borderline >159 Undesirable Direct (measured) LDL and calculated LDL are not interchangeable tests. Triglyceride [Mass/Vol] 460 mg/dL High <150 [facility] Comment on above: Triglyceride Guidelines: <150 Desirable 150-199 Borderline 200-499 High >499 Very high Based on AHA Guidelines for fasting triglyceride, July 2012. [facility] No Panel Informationon 04-12 [facility] TSH with Reflexon 04-12-2022 TSH Qn 0.99 m[IU]/L [facility] Urinalysis with MicroscopicO rdered By: Lita Weeks on 08-01-2021 - [employer] Work Phone: Amorphous, UA NOT REPORTED None [facility] HospitalRopateckettering [facility] Work Phone: Bacteria, UA RARE Abnormal None [facility] [employer] Work Phone: Bilirubin Urine Negative NEGATIVE [facility] Work Phone: Casts UA NOT REPORTED /LPF [facility] [employer] Work Phone: Color, UA Yellow Yellow [facility] HospitalPanraven Work Phone: Crystals, UA NOT REPORTED None /HPF [facility] [employer] Work Phone: Epithelial Cells UA 2 TO 5 /HPF [facility] [employer] Work Phone: Glucose, Ur Negative NEGATIVE [facility] Work Phone: Interpretation and review of laboratory results Abnormal [facility] Work Phone: Ketones Ql (U) Negative NEGATIVE [facility] Work Phone: Leukocyte esterase Test strip Ql (U) Negative NEGATIVE [facility] Work Phone: Mucus, UA NOT REPORTED None [facility] Work Phone: Nitrite, Urine Negative NEGATIVE [facility] Hospital[facility] Work Phone: Other Observations UA NOT REPORTED NOT REQ. M [facility] Work Phone: pH, UA 6.0 [facility] Work Phone: Protein, UA Negative NEGATIVE [facility] Work Phone: RBC, UA NOT REPORTED [facility] Work Phone: Renal Epithelial, UA NOT REPORTED 0 /HPF [facility] [employer] Work Phone: Specific [place], UA 1.020 [facility] [employer] Work Phone: Trichomonas, UA NOT REPORTED None [facility] Work Phone: Turbidity UA Clear Clear [facility] Work Phone: Urinalysis Comments [employer] Work Phone: Urine Hgb Negative NEGATIVE [facility] Work Phone: Urobilinogen, Urine Normal Normal [facility] Work Phone: WBC, UA NOT REPORTED 0 /HPF [facility] Work Phone: Yeast, UA NOT REPORTED None [facility] Work Phone: [facility] [employer] Work Phone: Urinalysis with MicroscopicO rdered By: Lita Weeks on 07-11-2021 - [facility] Work Phone: Amorphous, UA NOT REPORTED None [facility] Hospital[facility] Work Phone: Bacteria, UA 3+ Abnormal None [facility] [employer] Work Phone: Bilirubin Urine Negative NEGATIVE [facility] Work Phone: Casts UA NOT REPORTED /LPF [facility] Work Phone: Color, UA Yellow Yellow [facility] [employer] Work Phone: Crystals, UA NOT REPORTED None /HPF [facility] [employer] Work Phone: Epithelial Cells UA 2 TO 5 /HPF [facility] [employer] Work Phone: Glucose, Ur Negative NEGATIVE [facility] [employer] Phone: Interpretation and review of laboratory results Abnormal [facility] [employer] Work Phone: Ketones Ql (U) Negative NEGATIVE [facility] Work Phone: Leukocyte esterase Test strip Ql (U) 2+ Abnormal NEGATIVE [facility] [employer] Phone: Mucus, UA NOT REPORTED None [facility] [employer] Work Phone: Nitrite, Urine Positive Abnormal NEGATIVE [facility] Work Phone: Other Observations UA NOT REPORTED NOT REQ. M [facility] [employer] Work Phone: pH, UA 6.0 [facility] [employer] Work Phone: Protein, UA Negative NEGATIVE [facility] [employer] Work Phone: RBC, UA NOT REPORTED [facility] [employer] Work Phone: Renal Epithelial, UA NOT REPORTED 0 /HPF [facility] [employer] Work Phone: Specific [place], UA 1.025 [facility] Work Phone: Trichomonas, UA NOT REPORTED None [facility] Work Phone: Turbidity UA Hazy Abnormal Clear [employer] Phone: Urinalysis Comments [employer] Phone: Urine Hgb Negative NEGATIVE [employer] Phone: Urobilinogen, Urine Normal Normal [employer] Phone: WBC, UA 20 TO 50 0 /HPF [employer] Phone: Yeast, UA NOT REPORTED None [employer] Phone: [employer] Phone: AlbuminOrdered By: Gregory stevens on 05-20-2021 Albumin [Mass/Vol] 4.2 g/dL 3.5 - 5.2 g/dL [employer] Phone: BUN & CreatinineOrdered By: Gregory Forbes on 05-20-2021 Creatinine [Mass/Vol] 1.18 mg/dL High 0.50 - 0.90 mg/dL [employer] Phone: GFR >60 >60 mL/min [place] Phone: GFR Non- 50 mL/min Low >60 [employer] Phone: GFR/1.73 sq M.predicted MDRD (S/P/Bld) [Vol rate/Area] [employer] Phone: Comment on above: Average GFR for 40-4 9 years old: 99 mL/min/1.73sq m Chronic Kidney Disease: <60 mL/min/1.73sq m Kidney failure: <15 mL/min/1.73sq m eGFR calculated using average adult body mass. Additional eGFR calculator available at: http://www.[employer]™ [employer].SportID/multiple_crcl_2012.htm GFR/1.73 sq M.predicted MDRD (S/P/Bld) [Vol rate/Area] NOT REPORTED [employer] Phone: Interpretation and review of laboratory results Abnormal [employer] Phone: Urea nitrogen (BldV) [Mass/Vol] 19 mg/dL 6 - 20 mg/dL [employer] Phone: CalciumOrdered By: Gregory stevens on 05-20-2021 Calcium [Mass/Vol] 9.2 mg/dL 8.6 - 10. 4 mg/dL [employer] Phone: Electrolyte PanelOrdered By: Gregory Forbes on 05-20-2021 Anion gap [Moles/Vol] 10 mmol/L 9 - 17 mmol/L [employer] Phone: Chloride [Moles/Vol] 103 mmol/L 98 - 10 7 mmol/L [employer] Phone: CO2 [Moles/Vol] 25 mmol/L 20 - 31 mmol/L [employer] Phone: Potassium [Moles/Vol] 4.2 mmol/L 3.7 - 5.3 mmol/L [employer] Phone: Sodium [Moles/Vol] 138 mmol/L 135 - 144 mmol/L [employer] Phone: MagnesiumOrdered By: Gregory high on 05-20-2021 Magnesium [Mass/Vol] 2.2 mg/dL 1.6 - 2 .6 mg/dL [employer] Phone: No Panel InformationOrdered By: Gregory Forbes on 05-20-2021 [employer] Phone: PhosphorusOrdered By: Gregory Forbes on 05-20-2021 Phosphate [Mass/Vol] 3.7 mg/dL 2.6 - 4 .5 mg/dL [employer] Phone: UrinalysisOrdered By: Gregory Forbes on 05-20-2021 Bilirubin Urine Negative NEGATIVE [facility] Work Phone: Color, UA YELLOW YELLOW [facility] Work Phone: Glucose, Ur Negative NEGATIVE [employer] Work Phone: Interpretation and review of laboratory results Abnormal [employer] Work Phone: Ketones Ql (U) Negative NEGATIVE [employer] Work Phone: Leukocyte esterase Test strip Ql (U) Negative NEGATIVE [employer] Work Phone: Nitrite, Urine Negative NEGATIVE [employer] Work Phone: pH, UA 5.0 [facility] Work Phone: Protein, UA TRACE Abnormal NEGATIVE [employer] Phone: Specific [place], UA 1.020 [employer] Work Phone: Turbidity UA CLEAR CLEAR [employer] Work Phone: Urinalysis Comments [employer] Work Phone: Urine Hgb Negative NEGATIVE [employer] Phone: Urobilinogen, Urine Normal Normal [facility] Phone: [employer] Phone: COVID-19Ordered By: Pattie smith on 01-22-2021 SARS-CoV-2 (COVID-19) RNA SHARMIN+probe Ql (Unsp spec) [employer] Phone: SARS-CoV-2 (COVID-19) RNA SHARMIN+probe Ql (Unsp spec) Not detected Not Detected [employer] Phone: Comment on above: The specimen is NEGATIVE for SARS-CoV-2, the novel coronavirus associated with COVID-19. A negative result does not rule out COVID-19. Twin SARS-CoV-2 for use on the Twin Synqera0/8800 Systems is a real-time RT-PCR test intended [...] this assay. Fact sheet for Healthcare Providers: https://www.fda.gov/media/130666/download Fact sheet for Patients: https://www.fda.gov/media/727510/download METHODOLOGY: RT-PCR Source .THROAT [employer] Phone: COVID-19, PCRon 11-15-2020 SARS-CoV-2, Rapid Not Detected Not Detected [facility] Media Phone: Comment on above: Rapid NAAT: The [...] management decisions. Fact sheet for Healthcare Providers: https://www.fda.gov/media/599689/download Fact sheet for Patients: https://www.fda.gov/media/197805/download Methodology: Isothermal Nucleic Acid Amplification Source .THROAT [employer] Phone: Otheron 11-15-2020 SARS-CoV-2 [employer] Phone: CBC Auto Differentialon 09-04 Basophils (Bld) [#/Vol] 0.10 10*3/uL [place] Basophils/100 WBC (Bld) 1 % 0 - 2 % [place] Differential Type YES [place] Eosinophils (Bld) [#/Vol] 0.10 10*3/uL [place] Eosinophils/100 WBC (Bld) 1 % 0 - 5 % [place] Erythrocyte distribution width (RBC) [Ratio] 16.3 % High 12.1 - 15.2 % [place] Hematocrit (Bld) [Volume fraction] 36.5 % 36 - 46 % [place] Hemoglobin (Bld) [Mass/Vol] 12.5 g/dL 12 - 16 g/dL [place] Interpretation and review of laboratory results Abnormal [place] Lymphocytes (Bld) [#/Vol] 1.90 10*3/uL [place] Lymphocytes/100 WBC (Bld) 25 % 15 - 40 % [place] MCH (RBC) [Entitic mass] 28.8 pg 26 - 34 pg [place] MCHC (RBC) [Mass/Vol] 34.3 g/dL 31 - 37 g/dL [place] MCV (RBC) [Entitic vol] 84.0 fL 80 - 100 fL [place] Monocytes (Bld) [#/Vol] 0.40 10*3/uL [place] Monocytes/100 WBC (Bld) 5 % 4 - 8 % [place] Platelet mean volume (Bld) [Entitic vol] NOT REPORTED 6 - 12 fL [place] Platelets (Bld) [#/Vol] 167 10*3/uL [place] Platelets (Bld) [#/Vol] NOT REPORTED [place] RBC (Bld) [#/Vol] 4.35 10*6/uL 4 - 5.2 m/uL [place] RBC morphology finding Nom (Bld) NOT REPORTED [place] Segmented neutrophils/100 WBC (Bld) 68 % 47 - 75 % [place] Segs Absolute 5.40 [place] WBC (Bld) [#/Vol] 7.8 10*3/uL [place] WBC (Bld) [#/Vol] NOT REPORTED per 100 WBC [place] WBC Morphology NOT REPORTED [place] Comprehensive Metabolic Pane l w/ Reflex to MGon 09-16-2020 Albumin [Mass/Vol] 4.4 g/dL 3.5 - 5.2 g/dL [place] Albumin/Globulin [Mass ratio] NOT REPORTED [place] ALP [Catalytic activity/Vol] 117 U/L High 35 - 104 U/L [place] ALT [Catalytic activity/Vol] 41 U/L High 5 - 33 U/L [place] Anion gap [Moles/Vol] 10 mmol/L 9 - 17 mmol/L [place] AST [Catalytic activity/Vol] 39 U/L High <32 [place] Bilirubin Ql (U) 0.52 mg/dL 0.3 - 1.2 mg/dL [place] Bun/Cre Ratio 11 [place] Calcium [Mass/Vol] 9.0 mg/dL 8.6 - 10. 4 mg/dL [place] Chloride [Moles/Vol] 101 mmol/L 98 - 10 7 mmol/L [place] CO2 [Moles/Vol] 26 mmol/L 20 - 31 mmol/L [place] Creatinine [Mass/Vol] 1.32 mg/dL High 0.5 - 0.9 mg/dL [place] GFR 54 mL/min Low >60 [place] GFR Non- 44 mL/min Low >60 [place] GFR/1.73 sq M predicted among non-blacks MDRD (S/P/Bld) [Vol rate/Area] [place] Comment on above: Average GFR for 40-4 9 years old: 99 mL/min/1.73sq m Chronic Kidney Disease: <60 mL/min/1.73sq m Kidney failure: <15 mL/min/1.73sq m eGFR calculated using average adult body mass. Additional eGFR calculator available at: http://www.Mattermark/multiple_crcl_2012.htm GFR/1.73 sq M predicted among non-blacks MDRD (S/P/Bld) [Vol rate/Area] NOT REPORTED [place] Glucose [Mass/Vol] 173 mg/dL High 70 - 99 mg/dL [place] Interpretation and review of laboratory results Abnormal [place] Potassium [Moles/Vol] 3.9 mmol/L 3.7 - 5.3 mmol/L [place] Protein [Mass/Vol] 7.3 g/dL 6.4 - 8.3 g/dL [place] Sodium [Moles/Vol] 137 mmol/L 135 - 144 mmol/L [place] Urea nitrogen [Mass/Vol] 15 mg/dL 6 - 20 mg/dL [place] Otheron 09-16-2020 Immature granulocytes (Bld) [#/Vol] NOT REPORTED [place] Sedimentation Rateon 020 Sed Rate 15 mm 0 - 20 mm [place] Urinalysis, reflex to micros copicon 09-16-2020 Bilirubin Urine Negative NEGATIVE [place] Color, UA YELLOW YELLOW [place] Glucose, Ur Negative NEGATIVE [place] Interpretation and review of laboratory results Abnormal [place] Ketones Ql (U) Negative NEGATIVE [place] Leukocyte esterase Test strip Ql (U) Negative NEGATIVE [place] Nitrite, Urine Negative NEGATIVE [place] pH, UA 5.0 [place] Protein (U) [Mass/Vol] TRACE Abnormal NEGATIVE [place] Specific [place], UA 1.025 [place], [place] Turbidity UA CLEAR CLEAR [place] Urinalysis Comments [place] Urine Hgb Negative NEGATIVE [place] Urobilinogen, Urine Normal Normal [place] C-Reactive Proteinon 020 CRP [Mass/Vol] 6 mg/L High 0 - 5 mg/L [place] Interpretation and review of laboratory results Abnormal [place] CBC With Auto Differentialon 08-24-2020 Basophils (Bld) [#/Vol] 0.00 10*3/uL [place] Basophils/100 WBC (Bld) 1 % 0 - 2 % [place] Differential Type YES [place] Eosinophils (Bld) [#/Vol] 0.10 10*3/uL [place] Eosinophils/100 WBC (Bld) 1 % 0 - 5 % [place] Erythrocyte distribution width (RBC) [Ratio] 16.2 % High 12.1 - 15.2 % [place] Hematocrit (Bld) [Volume fraction] 35.4 % Low 36 - 46 % [place] Hemoglobin (Bld) [Mass/Vol] 12.2 g/dL 12 - 16 g/dL [place] Interpretation and review of laboratory results Abnormal [place] Lymphocytes (Bld) [#/Vol] 1.60 10*3/uL [place] Lymphocytes/100 WBC (Bld) 28 % 15 - 40 % [place] MCH (RBC) [Entitic mass] 29.1 pg 26 - 34 pg [place] MCHC (RBC) [Mass/Vol] 34.5 g/dL 31 - 37 g/dL [place] MCV (RBC) [Entitic vol] 84.2 fL 80 - 100 fL [place] Monocytes (Bld) [#/Vol] 0.40 10*3/uL [place] Monocytes/100 WBC (Bld) 6 % 4 - 8 % [place] Platelet mean volume (Bld) [Entitic vol] NOT REPORTED 6 - 12 fL [place] Platelets (Bld) [#/Vol] 160 10*3/uL [place] Platelets (Bld) [#/Vol] NOT REPORTED [place] RBC (Bld) [#/Vol] 4.20 10*6/uL 4 - 5.2 m/uL [place] RBC morphology finding Nom (Bld) NOT REPORTED [place] Segmented neutrophils/100 WBC (Bld) 64 % 47 - 75 % [place] Segs Absolute 3.80 [place] WBC (Bld) [#/Vol] 5.8 10*3/uL [place] WBC (Bld) [#/Vol] NOT REPORTED per 100 WBC [place], [place] WBC Morphology NOT REPORTED [place] Otheron 08-24-2020 Immature granulocytes (Bld) [#/Vol] NOT REPORTED 0 % [place] Sedimentation Rateon 020 Sed Rate 10 mm 0 - 20 mm [place] C-Reactive Proteinon 020 CRP [Mass/Vol] 2 mg/L 0 - 5 mg/L [place] CBC With Auto Differentialon 07-24-2020 Basophils (Bld) [#/Vol] 0.10 10*3/uL [place] Basophils/100 WBC (Bld) 1 % 0 - 2 % [place] Differential Type YES [place] Eosinophils (Bld) [#/Vol] 0.10 10*3/uL [place] Eosinophils/100 WBC (Bld) 1 % 0 - 5 % [place] Erythrocyte distribution width (RBC) [Ratio] 16.8 % High 12.1 - 15.2 % [place] Hematocrit (Bld) [Volume fraction] 40.0 % 36 - 46 % [place] Hemoglobin (Bld) [Mass/Vol] 13.5 g/dL 12 - 16 g/dL [place] Interpretation and review of laboratory results Abnormal [place] Lymphocytes (Bld) [#/Vol] 1.70 10*3/uL [place] Lymphocytes/100 WBC (Bld) 17 % 15 - 40 % [place] MCH (RBC) [Entitic mass] 29.1 pg 26 - 34 pg [place] MCHC (RBC) [Mass/Vol] 33.8 g/dL 31 - 37 g/dL [place] MCV (RBC) [Entitic vol] 86.0 fL 80 - 100 fL [place] Monocytes (Bld) [#/Vol] 0.50 10*3/uL [place] Monocytes/100 WBC (Bld) 5 % 4 - 8 % [place] Platelet mean volume (Bld) [Entitic vol] NOT REPORTED 6 - 12 fL [place] Platelets (Bld) [#/Vol] NOT REPORTED [place] Platelets (Bld) [#/Vol] 208 10*3/uL [place] RBC (Bld) [#/Vol] 4.65 10*6/uL 4 - 5.2 m/uL [place] RBC morphology finding Nom (Bld) NOT REPORTED [place] Segmented neutrophils/100 WBC (Bld) 76 % High 47 - 75 % [place] Segs Absolute 7.70 [place] WBC (Bld) [#/Vol] NOT REPORTED per 100 WBC [place] WBC (Bld) [#/Vol] 10.0 10*3/uL [place] WBC Morphology NOT REPORTED [place], [place] Otheron 07-24-2020 Immature granulocytes (Bld) [#/Vol] NOT REPORTED 0 % [place] Sedimentation Rateon 020 Sed Rate 6 mm 0 - 20 mm [place] Protein / creatinine ratio, urineon 06-07-2020 Creatinine, Ur 101.2 mg/dL 28 - 217 mg/dL [place] Protein (U) [Mass/Vol] 8 mg/dL [place] Comment on above: No normal range esta blished. Urine Total Protein Creatinine Ratio 0.08 [place] Urinalysison 06-07-2020 Bilirubin Urine Negative NEGATIVE [place] Color, UA YELLOW YELLOW [place] Glucose, Ur 100 mg/dL Abnormal NEGATIVE [place] Interpretation and review of laboratory results Abnormal [place] Ketones Ql (U) Negative NEGATIVE [place] Leukocyte esterase Test strip Ql (U) Negative NEGATIVE [place] Nitrite, Urine Negative NEGATIVE [place] pH, UA 6.0 [place] Protein (U) [Mass/Vol] Negative NEGATIVE [place] Specific [place], UA 1.020 [place], [place] Turbidity UA CLEAR CLEAR [place] Urinalysis Comments [place] Urine Hgb Negative NEGATIVE [place] Urobilinogen, Urine Normal Normal [place] Comprehensive Metabolic Pane ananda 05-25-2020 Albumin [Mass/Vol] 4.4 g/dL 3.5 - 5.2 g/dL [place] Albumin/Globulin [Mass ratio] NOT REPORTED [place] ALP [Catalytic activity/Vol] 87 U/L 35 - 104 U/L [place] ALT [Catalytic activity/Vol] 21 U/L 5 - 33 U/L [place] Anion gap [Moles/Vol] 10 mmol/L 9 - 17 mmol/L [place] AST [Catalytic activity/Vol] 22 U/L <32 [place] Bilirubin Ql (U) 0.32 mg/dL 0.3 - 1.2 mg/dL [place] Bun/Cre Ratio 18 [place] Calcium [Mass/Vol] 10.1 mg/dL 8.6 - 10. 4 mg/dL [place] Chloride [Moles/Vol] 104 mmol/L 98 - 10 7 mmol/L [place] CO2 [Moles/Vol] 26 mmol/L 20 - 31 mmol/L [place] Creatinine [Mass/Vol] 1.37 mg/dL High 0.5 - 0.9 mg/dL [place] GFR 52 mL/min Low >60 [place] GFR Non- 43 mL/min Low >60 [place] GFR/1.73 sq M predicted among non-blacks MDRD (S/P/Bld) [Vol rate/Area] NOT REPORTED [place] GFR/1.73 sq M predicted among non-blacks MDRD (S/P/Bld) [Vol rate/Area] [place] Comment on above: Average GFR for 40-4 9 years old: 99 mL/min/1.73sq m Chronic Kidney Disease: <60 mL/min/1.73sq m Kidney failure: <15 mL/min/1.73sq m eGFR calculated using average adult body mass. Additional eGFR calculator available at: http://www.Mattermark/multiple_crcl_2012.htm Glucose [Mass/Vol] 160 mg/dL High 70 - 99 mg/dL [place] Interpretation and review of laboratory results Abnormal [place] Potassium [Moles/Vol] 4.6 mmol/L 3.7 - 5.3 mmol/L [place] Protein [Mass/Vol] 7.4 g/dL 6.4 - 8.3 g/dL [place] Sodium [Moles/Vol] 140 mmol/L 135 - 144 mmol/L [place] Urea nitrogen [Mass/Vol] 24 mg/dL High 6 - 20 mg/dL [place] Hemoglobin A1Con 05-25-2020 Glucose [Mass/Vol] 123 mg/dL [place] Comment on above: The ADA and AACC rec ommend providing the estimated average glucose result to permit better patient understanding of their HBA1c result. HbA1c (Bld) [Mass fraction] 5.9 % 4 - 6 % [place] LDL Cholesterol, Directon Cholesterol in LDL [Mass/Vol] 58 mg/dL <100 [place] Lipid Panelon 05-25-2020 Cholesterol [Mass/Vol] 194 mg/dL <200 [place] Comment on above: Cholesterol Guidelines: <200 Desirable 200-240 Borderline >240 Undesirable Cholesterol in HDL [Mass/Vol] 27 mg/dL Low >40 [place] Comment on above: HDL Guidelines: <40 Undesirable 40-59 Borderline >59 Desirable Cholesterol in LDL [Mass/Vol] 0 - 130 mg/dL [place] Comment on above: Calculation not jacqueline d for Triglyceride value greater than 400 mg/dL. Direct LDL reflexed LDL Guidelines: <100 Desirable 100-129 Near to/above Desirable 130-159 Borderline >159 Undesirable Direct (measured) LDL and calculated LDL are not interchangeable tests. Cholesterol in VLDL [Mass/Vol] NOT REPORTED 1 - 30 mg/dL [place] Cholesterol.total/Chol esterol in HDL [Mass ratio] 7.2 {ratio} High <5 [place] Interpretation and review of laboratory results Abnormal [place] Triglyceride [Mass/Vol] 1112 mg/dL High <150 [place] Comment on above: Triglyceride Guidelines: <150 Desirable 150-199 Borderline 200-499 High >499 Very high Based on AHA Guidelines for fasting triglyceride, July 2012. Patient Fasting?on 0 Patient Fasting? YES [place] Vitamin D 25 Hydroxyon 05-25 Vit D, 25-Hydroxy 30.2 ng/mL 30 - 100 ng/mL [place] Comment on above: Reference Range: Vitamin D status Range Deficiency <20 ng/mL Mild Deficiency 20-30 ng/mL Sufficiency 30-100 ng/mL Toxicity >100 ng/mL C-Reactive Proteinon 020 CRP [Mass/Vol] 6.2 mg/L High 0 - 5 mg/L [place] Interpretation and review of laboratory results Abnormal [place] Hemoglobin [id number] By: Kevin Allen on 09-24-2019 Glucose [Mass/Vol] 108 mg/dL [facility] Phone: Comment on above: The ADA and AACC rec ommend providing the estimated average glucose result to permit better patient understanding of their HBA1c result. HbA1c (Bld) [Mass fraction] 5.4 % 4.8 - 5.9 % [facility] Phone: Homocysteine, SerumOrdered B y: Janel Allen on 09-24-2019 Homocysteine 9 umol/L <15.0 [facility] Phone: TSH without ReflexOrdered By : Janel Allen on 09-24-2019 TSH Qn 1.03 m[IU]/L [employer] Phone: Vitamin B12 & FolateOrdered By: Janel Allen on 09-24-2019 Cobalamin (Vitamin B12) [Mass/Vol] 292 pg/mL 232 - 1245 pg/mL [employer] Phone: Folate 13.8 ng/mL >4.8 [employer] Phone: XR CERVICAL SPINE (4-5 VIEWS )on 07-29-2019 Mild degenerative changes cervical spine not unusual for age. Refer to the [facility] 02/03/2019 with some of the findings discussed above. [facility] [employer] [place] EXAM: XR CERVICAL SPINE (4-5 VIEWS) HISTORY: Reason for exam:->history MRSA discitis of thoracic region. New tingling and numbness of fingers COMPARISON: MRI cervical spine [facility] 02/03/2019, cervical spine series 04/03/2010. The [...] Swimmer's lateral view shows no additional abnormality. [place] Lior, pn Incoming Radiant Results From [employer] - 07/29/2019 10:05 AM EDT EXAM: XR CERVICAL SPINE (4-5 VIEWS) HISTORY: Reason for exam:->history MRSA discitis of thoracic region. New tingling and numbness of fingers COMPARISON: MRI cervical spine [facility] 02/03/2019, cervical spine series 04/03/2010. The [...] not unusual for age. Refer to the [facility] services 02/03/2019 with some of the findings discussed above. [place] C-Reactive ProteinOrdered By : Azalea Knight on 07-28-2019 CRP [Mass/Vol] 6.4 mg/L High 0 - 5 mg/L [place] Interpretation and review of laboratory results Abnormal [place] CBC With Auto DifferentialOr dered By: Azalea Knight on 07-28-2019 Absolute Eos # 0.10 [place] Absolute Immature Granulocyte NOT REPORTED [place] Absolute Lymph # 2.10 [place], [place] Absolute Bradley # 0.50 [place] Basophils (Bld) [#/Vol] 0.00 10*3/uL [place] Basophils/100 WBC (Bld) 1 % 0 - 2 % [place] Differential Type YES [place] Eosinophils/100 WBC (Bld) 1 % 0 - 5 % [place] Erythrocyte distribution width (RBC) [Ratio] 14.5 % 12.1 - 15.2 % [place] Hematocrit (Bld) [Volume fraction] 38.1 % 36 - 46 % [place] Hemoglobin (Bld) [Mass/Vol] 12.9 g/dL 12 - 16 g/dL [place] Immature Granulocytes NOT REPORTED 0 % [place] Lymphocytes/100 WBC (Bld) 34 % 15 - 40 % [place] MCH (RBC) [Entitic mass] 29.5 pg 26 - 34 pg [place] MCHC (RBC) [Mass/Vol] 33.9 g/dL 31 - 37 g/dL [place] MCV (RBC) [Entitic vol] 87.1 fL 80 - 100 fL [place] Monocytes/100 WBC (Bld) 8 % 4 - 8 % [place] MPV NOT REPORTED 6 - 12 fL [place] NRBC Automated NOT REPORTED per 100 WBC [place] Platelet Estimate NOT REPORTED [place] Platelets (Bld) [#/Vol] 222 10*3/uL [place] RBC (Bld) [#/Vol] 4.38 10*6/uL 4 - 5.2 m/uL [place] RBC morphology finding Nom (Bld) NOT REPORTED [place] Segmented neutrophils/100 WBC (Bld) 56 % 47 - 75 % [place] Segs Absolute 3.50 [place] WBC (Bld) [#/Vol] 6.2 10*3/uL [place] WBC Morphology NOT REPORTED [place], [place] Sedimentation RateOrdered By : Azalea Knight on 07-28-2019 Sed Rate 19 mm 0 - 30 mm [place] C-Reactive Proteinon 019 CRP [Mass/Vol] 7.3 mg/L High 0 - 5 mg/L [place] Interpretation and review of laboratory results Abnormal [place] Albuminon 06-17-2019 Albumin [Mass/Vol] 4.3 g/dL 3.5 - 5.2 g/dL [place] BUN & Creatinineon 9 Creatinine [Mass/Vol] 1.27 mg/dL High 0.5 - 0.9 mg/dL [place] GFR 56 mL/min Low >60 [place] GFR Non- 47 mL/min Low >60 [place] GFR/1.73 sq M predicted among non-blacks MDRD (S/P/Bld) [Vol rate/Area] NOT REPORTED [place] GFR/1.73 sq M predicted among non-blacks MDRD (S/P/Bld) [Vol rate/Area] [place] Comment on above: Average GFR for 40-4 9 years old: 99 mL/min/1.73sq m Chronic Kidney Disease: <60 mL/min/1.73sq m Kidney failure: <15 mL/min/1.73sq m eGFR calculated using average adult body mass. Additional eGFR calculator available at: http://www.Mattermark/multiple_crcl_2012.htm Interpretation and review of laboratory results Abnormal [place] Urea nitrogen [Mass/Vol] 18 mg/dL 6 - 20 mg/dL [place] Calciumon 06-17-2019 Calcium [Mass/Vol] 10.4 mg/dL 8.6 - 10. 4 mg/dL [place] Electrolyte Panelon 06-17-20 19 Anion gap [Moles/Vol] 13 mmol/L 9 - 17 mmol/L [place] Chloride [Moles/Vol] 103 mmol/L 98 - 10 7 mmol/L [place] CO2 [Moles/Vol] 24 mmol/L 20 - 31 mmol/L [place] Potassium [Moles/Vol] 3.8 mmol/L 3.7 - 5.3 mmol/L [place] Sodium [Moles/Vol] 140 mmol/L 135 - 144 mmol/L [place] Hemoglobin and Hematocrit, B loodon 06-17-2019 Hematocrit (Bld) [Volume fraction] 35.4 % Low 36 - 46 % [place] Hemoglobin (Bld) [Mass/Vol] 12.1 g/dL 12 - 16 g/dL [place] Interpretation and review of laboratory results Abnormal [place] Magnesiumon 06-17-2019 Magnesium [Mass/Vol] 2.3 mg/dL 1.6 - 2 .6 mg/dL [place] Microscopic Urinalysison Amorphous, UA NOT REPORTED None [place] Bacteria, UA 1+ Abnormal None [place] Casts UA NOT REPORTED /LPF [place] Crystals UA NOT REPORTED None /HPF [place] Epithelial Cells UA 2 TO 5 /HPF [place] Interpretation and review of laboratory results Abnormal [place] Mucus, UA NOT REPORTED None [place] Other Observations UA NOT REPORTED NOT REQ. M [place] RBC (U) [#/Vol] NOT REPORTED [place] Renal Epithelial, Urine NOT REPORTED 0 /HPF [place] Trichomonas, UA NOT REPORTED None [place] WBC, UA 0 TO 2 0 /HPF [place] Yeast, UA NOT REPORTED None [place] - [place] Phosphoruson 06-17-2019 Phosphate [Mass/Vol] 3.0 mg/dL 2.6 - 4 .5 mg/dL [place] Protein / creatinine ratio, urineon 06-17-2019 Creatinine, Ur 228.2 mg/dL High 28 - 217 mg/dL [place] Interpretation and review of laboratory results Abnormal [place] Protein (U) [Mass/Vol] 18 mg/dL [place] Comment on above: No normal range esta blished. Urine Total Protein Creatinine Ratio 0.08 [place] Sedimentation Rateon 019 Sed Rate 24 mm 0 - 30 mm [place] Urinalysison 06-17-2019 Bilirubin Urine Negative NEGATIVE [place] Color, UA YELLOW YELLOW [place] Glucose, Ur Negative NEGATIVE [place] Interpretation and review of laboratory results Abnormal [place] Ketones Ql (U) Negative NEGATIVE [place] Leukocyte esterase Test strip Ql (U) Negative NEGATIVE [place] Nitrite, Urine Negative NEGATIVE [place] pH, UA 6.0 [place] Protein (U) [Mass/Vol] TRACE Abnormal NEGATIVE [place] Specific [place], UA 1.025 [place], [place] Turbidity UA HAZY Abnormal CLEAR [place] Urinalysis Comments [place] Urine Hgb Negative NEGATIVE [place] Urobilinogen, Urine Normal Normal [place] MR CERVICAL SPINE WITHOUT CO NTRASTon [...] be due to myelomalacia or cord edema. /[employer] Workstation ID: [id number] [facility] EXAMINATION: MR CERVICAL SPINE WITHOUT CONTRAST [...] mild left-sided neural foraminal stenosis. [facility], Rad In Aric Speechq - 02/03/2019 11:02 [...] be due to myelomalacia or cord edema. /[facility] Workstation ID: [id number] [facility] MR CERVICAL SPINE WITHOUT CONTRAST EXAMINATION: [...] on ThuFebruary 03, 2019 10:59:35 AM EDT [facility] Comment on above: Order Comment: Reaso [...] GROWTH 48 DAYS Report Status FINAL 10/11/2018 [facility] Comment on above: Performed By: #### T ROPI #### [address] [address] Cult,Mycobacteria Specimen Description .SPINE .TISSUE T4 LAMINA Special Requests NOT REPORTED Direct Exam NO ACID FAST BACILLI SEEN (DIRECT SMEAR) Culture NO GROWTH 48 DAYS Report Status FINAL 10/11/2018 [facility] Comment on above: Performed By: #### L ACWB #### [address] [address] Cult,Funguson 09-27-2018 Cult,Fungus Specimen Description .TISSUE EPIDURAL TISSUE Special Requests NOT REPORTED Culture NO GROWTH 34 DAYS Report Status FINAL 09/27/2018 [facility] Comment on above: Performed By: #### L ACWB #### [address] [address] Cult,Fungus Specimen Description .SPINE .TISSUE T4 LAMINA Special Requests NOT REPORTED Culture NO GROWTH 34 DAYS Report Status FINAL 09/27/2018 [facility] Comment on above: Performed By: #### L ACWB #### [address] [address] BUNon 09-23-2018 Urea nitrogen mass conc 20 mg/dL Normal 6-23 [facility] Comment on above: Performed By: #### 2 [id number] ####OVIDIO [address]ufFabn7076 [place] [address] Creatinineon 09-23-2018 Creatinine mass conc 1.3 mg/dL High 0.5-1.1 [facility] Comment on above: Performed By: #### 2 [id number] ####OVIDIO Ujfebmjp2234 [place] [address] eGFRon 09-23-2018 eGFR AA 54 mL/min/1.73 m2 Normal [facility] Comment on above: Order Comment: Order added by Discern Expert. Performed By: #### 2 [id number] ####OVIDIO [address]mmdo[address] [place] [address] GFR/1.73 sq M predicted among non-blacks MDRD vol rate/area (S/P/Bld) 45 mL/min/1.73 m2 Normal [facility] Comment on above: Order Comment: Order added by Discern Expert. Performed By: #### 2 [id number] ####OVIDIO Djxoeeha0315 [place] [address] Auto Diffon 09-20-2018 Basophils Auto #/vol (Bld) 0.0 E3/mcL Normal 0.0-0.2 [facility] Comment on above: Order Comment: Order Added by Nicole Expert. Performed By: #### 2 [id number] ####OVIDIOBrock [address]fyL[address]ql[address] [place] [id number] Basophils/100 WBC Auto (Bld) 1.1 % Normal 0.0-2.0 [facility] Comment on above: Order Comment: Order Added by Nicole Expert. Performed By: #### 2 [id number] ####OVIDIOBrock AvalosJhgNyix6761 [place] [address] Eos Absolute 0.0 E3/mcL Normal 0.0-0.7 [facility] Comment on above: Order Comment: Order Added by Nicole Expert. Performed By: #### 2 [id number] ####OVIDIO AfkIfsk3345 [place] [address] Eosinophils/100 WBC Auto (Bld) 0.3 % Normal 0.0-11.0 [facility] Comment on above: Order Comment: Order Added by Discern Expert. Performed By: #### 2 157836 ####OVIDIOBrock AvalosNwdMywf5797 [place] [address] Lymphocytes Auto #/vol (Bld) 1.2 E3/mcL Normal 1.2-3.4 [facility] Comment on above: Order Comment: Order Added by Nicole Expert. Performed By: #### 2 [id number] ####OVIDIOBrock ValleWuyTpqn4127 [place] [address] Lymphocytes/100 WBC Auto (Bld) 30.6 % Normal 20.0-55.0 [facility] Comment on above: Order Comment: Order Added by Discern Expert. Performed By: #### 2 [id number] ####OVIDIO Valleo[address] [place] [address] Bradley Absolute 0.4 E3/mcL Normal 0.0-0.7 [facility] Comment on above: Order Comment: Order Added by Discern Expert. Performed By: #### 2 [id number] ####OVIDIO [address] [place] [address] Monocytes/100 WBC Auto (Bld) 10.2 % High 0.0-10.0 [facility] Comment on above: Order Comment: Order Added by Discern Expert. Performed By: #### 2 [id number] ####OVIDIO [address] [place] [address] Neutro Absolute 2.3 E3/mcL Normal 1.4-6.5 [facility] Comment on above: Order Comment: Order Added by Discern Expert. Performed By: #### 2 [id number] ####OVIDIO [address] [place] [address] Neutro Auto 57.8 % Normal 37.0-75.0 [facility] Comment on above: Order Comment: Order Added by Discern Expert. Performed By: #### 2 206602 ####OVIDIO [address] [place] [address] CBC w/ Auto Diffon 8 Erythrocyte distribution width Auto Ratio (RBC) 19.9 % High 11.5-14.5 [facility] Comment on above: Performed By: #### 2 [id number] ####OVIDIO [address] [place] [address] Hematocrit Auto Volume Fraction (Bld) 26.5 % Low 36.0-48.0 [facility] Comment on above: Performed By: #### 2 [id number] ####OVIDIO [address] [place] [address] Hemoglobin mass conc (Bld) 8.7 g/dL Low 12.0-16.0 [facility] Comment on above: Performed By: #### 2 606240 ####OVIDIO [address]RfyFahf5[address] [place] [address] MCH Auto Entitic mass (RBC) 29.6 pg Normal 27.0-31.0 [facility] Comment on above: Performed By: #### 2 339691 ####OVIDIO [address]DajVhxo5980 [place] [address] MCHC Auto mass conc (RBC) 32.9 g/dL Low 33.0-37.0 [facility] Comment on above: Performed By: #### 2 [id number] ####OVIDIO [address]osKjyEqpr0849 [place] [address] MCV Auto Entitic volume (RBC) 89.8 fL Normal 78.0-100.0 [facility] Comment on above: Performed By: #### 2 710362 ####OVIDIO [address]imDjwe[address] [place] [id number] Platelet mean volume Auto Entitic volume (Bld) 10.5 fL Normal 7.4-11.0 [facility] Comment on above: Performed By: #### 2 [id number] ####OVIDIO [address]osMueKtns4669 [place] [address] Platelets Auto #/vol (Bld) 117 E3/mcL Low 130-400 [facility] Comment on above: Performed By: #### 2 [id number] ####OVIDIO [address]NeyBlru[address] [place] [address] RBC Auto #/vol (Bld) 2.95 E6/mcL Low 3.90-5.40 [facility] Comment on above: Performed By: #### 2 893632 ####OVIDIO AvalosOgvBsow0334 [place] [address] WBC Auto #/vol (Bld) 4.0 E3/mcL Normal 3.6-11.0 [facility] Comment on above: Performed By: #### 2 [id number] ####OVIDIO [address]osKyrSicj[address]95 [place] [address] CRPon 09-20-2018 CRP mass conc 0.83 mg/dL Normal 0.00-1.00 [facility] Comment on above: Performed By: #### 2 [id number] ####OVIDIO LywFlnn4223 [place] [address] Morphon 09-20-2018 Anisocytosis Auto Ql (Bld) 1+ Normal [facility] Comment on above: Order Comment: Order Added by Discern Expert. Performed By: #### 1 [id number] ####OVIDIO [address] [place] [id number] Hypochromasia 1+ Normal [facility] Comment on above: Order Comment: Order Added by Discern Expert. Performed By: #### 1 [id number] ####OVIDIO SskKpdl6268 [place] [address] RBC morphology finding Nom (Bld) SEE MORPHOLOGY Normal [facility] Comment on above: Order Comment: Order Added by Discern Expert. Performed By: #### 1 [id number] ####OVIDIO IxwOgjo3089 [place] [address] Sed Rate Automatedon 018 Sed Rate Automated 15 mm/hr Normal [facility] Comment on above: Result Comment: AGE- SPECIFIC REFERENCE RANGES FOR SEDIMENTATION RATE AUTOMATED REFERENCE RANGE - MM/HR AGE MEN WOMEN 0-2 0-2 - PUBERTY 3-13 3-13 PUBERTY - 50 YRS 0-15 0-20 > 50 YRS 0-20 0-30 Performed By: #### 1 [id number] ####OVIDIO Hematology Manual [address]ir[address] [place] [address] zzplt morphon 09-20-2018 Platelet morphology finding Nom (Bld) NORMAL Normal [facility] Comment on above: Performed By: #### 9 [id number] ####OVIDIO IjyBqss8024 [place] [address] Platelets Auto #/vol (Bld) NORMAL Normal [facility] Comment on above: Performed By: #### 9 [id number] ####OVIDIO IeyOgyo2571 [place] [address] BLOOD UREA NITROGENon 2017 Urea nitrogen mass conc (Bld) 19 mg/dL Normal 7-20 [facility] Comment on above: Performed By: #### A CBC, ESR, BUN, CREAT, CREACT, FX ####Testing performed at [address] [address] C REACTIVE PROTEINon 018 CRP mass conc 18.5 mg/L High 0-10.0 [facility] Comment on above: Performed By: #### A CBC, ESR, BUN, CREAT, CREACT, FX ####Testing performed at [address] [address] CBCon 09-13-2018 ABSOLUTE BAS 0.1 X10 Normal [facility] Comment on above: Performed By: #### A CBC, ESR, BUN, CREAT, CREACT, FX ####Testing performed at [place] [id number] ABSOLUTE EOS 0.20 X10 Normal [facility] Comment on above: Performed By: #### A CBC, ESR, BUN, CREAT, CREACT, FX ####Testing performed at [place] [id number] ABSOLUTE NEUTROPHIL COUNT 2.5 x10 Normal 1.0-7.0 [facility] Comment on above: Performed By: #### A CBC, ESR, BUN, CREAT, CREACT, FX ####Testing performed at [place] [id number] Basophils/100 WBC Auto (Bld) 1.4 % Normal 0.0-2.0 [facility] Comment on above: Performed By: #### A CBC, ESR, BUN, CREAT, CREACT, FX ####Testing performed at [place] [id number] DTYPE AUTO DIFF Normal [facility] Comment on above: Performed By: #### A CBC, ESR, BUN, CREAT, CREACT, FX ####Testing performed at [place] [id number] Eosinophils/100 WBC Auto (Bld) 3.5 % Normal 0.0-11.0 [facility] Comment on above: Performed By: #### A CBC, ESR, BUN, CREAT, CREACT, FX ####Testing performed at [place] [id number] Lymphocytes Auto #/vol (Bld) 1.10 X10 Normal [facility] Comment on above: Performed By: #### A CBC, ESR, BUN, CREAT, CREACT, FX ####Testing performed at [address] [address] Lymphocytes/100 WBC Auto (Bld) 27.0 % Normal 20.0-55.0 [facility] Comment on above: Performed By: #### A CBC, ESR, BUN, CREAT, CREACT, FX ####Testing performed at [address] [address] Monocytes Auto #/vol (Bld) 0.4 X10 Normal [facility] Comment on above: Performed By: #### A CBC, ESR, BUN, CREAT, CREACT, FX ####Testing performed at [address] [address] Monocytes/100 WBC Auto (Bld) 9.4 % Normal 0.0-10.0 [facility] Comment on above: Performed By: #### A CBC, ESR, BUN, CREAT, CREACT, FX ####Testing performed at [address] [address] Neutrophils/100 WBC Auto (Bld) 58.7 % Normal 37.0-75.0 [facility] Comment on above: Performed By: #### A CBC, ESR, BUN, CREAT, CREACT, FX ####Testing performed at [place] [id number] Erythrocyte distribution width Auto Ratio (RBC) 17.6 % High 11.5-14.5 [facility] Comment on above: Performed By: #### A CBC, ESR, BUN, CREAT, CREACT, FX ####Testing performed at [place] [id number] Hematocrit Auto Volume Fraction (Bld) 26.2 % Low 36.0-48.0 [facility] Comment on above: Performed By: #### A CBC, ESR, BUN, CREAT, CREACT, FX ####Testing performed at [address] [address] Hemoglobin mass conc (Bld) 8.8 g/dL Low 12.0-16.0 [facility] Comment on above: Performed By: #### A CBC, ESR, BUN, CREAT, CREACT, FX ####[place] [address] MCH Auto Entitic mass (RBC) 29.3 pg Normal 26.0-35.0 [facility] Comment on above: Performed By: #### A CBC, ESR, BUN, CREAT, CREACT, FX ####[place] [address] MCHC Auto mass conc (RBC) 33.7 g/dL Normal 27.0-37.0 [facility] Comment on above: Performed By: #### A CBC, ESR, BUN, CREAT, CREACT, FX ####[place] [address] MCV Auto Entitic volume (RBC) 86.9 fL Normal 80.0-100.0 [facility] Comment on above: Performed By: #### A CBC, ESR, BUN, CREAT, CREACT, FX ####[place] [address] Platelet mean volume Auto Entitic volume (Bld) 10.1 fL Normal 7.4-11.0 [facility] Comment on above: Performed By: #### A CBC, ESR, BUN, CREAT, CREACT, FX ####[place] [address] Platelets Auto #/vol (Bld) 130 /cmm Normal 130.0-400.0 [facility] Comment on above: Performed By: #### A CBC, ESR, BUN, CREAT, CREACT, FX ####[place] [address] RBC Auto #/vol (Bld) 3.01 /cmm Low 4.0-5.4 [facility] Comment on above: Performed By: #### A CBC, ESR, BUN, CREAT, CREACT, FX ####[place] [address] WBC Auto #/vol (Bld) 4.2 /cmm Normal 3.6-11.0 [facility] Comment on above: Performed By: #### A CBC, ESR, BUN, CREAT, CREACT, FX ####[place] [address] CREATININE,SERUMon 8 Creatinine mass conc 1.5 mg/dL High 0.52-1.04 [facility] Comment on above: Performed By: #### A CBC, ESR, BUN, CREAT, CREACT, FX ####[place] [address] EST. GFR, 50 ml/min/1.73sq.m [facility] Comment on above: Performed By: #### A CBC, ESR, BUN, CREAT, CREACT, FX ####[place] [address] EST. GFR,Non 41 ml/min/1.73sq.m [facility] Comment on above: Performed By: #### A CBC, ESR, BUN, CREAT, CREACT, FX ####[place] [address] GFR/1.73 sq M predicted among non-blacks MDRD vol rate/area (S/P/Bld) Average GFR for 30-39 years old = 109. Normal [facility] Comment on above: Result Comment: Die Cast Supervisor vasu Kidney disease, GFR = <60.Kidney failure, GFR = <15.The GFR estimate is not adjusted for extreme body surface area or acute process, nor has it been validated for women or ethnic groups other than and . Performed By: #### A CBC, ESR, BUN, CREAT, CREACT, FX ####[place] [address] ESRon 09-13-2018 ESR Velocity (Bld) 49 mm/h High 0-15 [facility] Comment on above: Performed By: #### A CBC, ESR, BUN, CREAT, CREACT, FX ####[place] [address] FAX REQUESTon 09-13-2018 FAX TO FAX TO DR HARTMAN AT [phone] AND TO [facility] AT [phone] [facility] Comment on above: Performed By: #### P HY, BUN, CREAT, FX ####Testing performed at [address] [address] FAX REQUESTon 09-06-2018 FAX TO [phone] [facility] Comment on above: Performed By: #### F X ####Testing performed at [place] [id number] BLOOD UREA NITROGENon 2017 Urea nitrogen mass conc (Bld) 21 mg/dL High 7-20 [facility] Comment on above: Performed By: #### P HY, BUN, CREAT, FX ####[place] [address] CREATININE,SERUMon 8 Creatinine mass conc 1.4 mg/dL High 0.52-1.04 [facility] Comment on above: Performed By: #### P HY, BUN, CREAT, FX ####Testing performed at [place] [id number] EST. GFR, 54 ml/min/1.73sq.m [facility] Comment on above: Performed By: #### P HY, BUN, CREAT, FX ####Testing performed at [place] [id number] EST. GFR,Non 44 ml/min/1.73sq.m [facility] Comment on above: Performed By: #### P HY, BUN, CREAT, FX ####Testing performed at [place] [id number] GFR/1.73 sq M predicted among non-blacks MDRD vol rate/area (S/P/Bld) Average GFR for 30-39 years old = 109. [facility] Comment on above: Result Comment: Die Cast Supervisor vasu Kidney disease, GFR = <60.Kidney failure, GFR = <15.The GFR estimate is not adjusted for extreme body surface area or acute process, nor has it been validated for women or ethnic groups other than and . Performed By: #### P HY, BUN, CREAT, FX ####Testing performed at [address] [address] FAX REQUESTon 08-31-2018 FAX TO [phone] [facility] Comment on above: Performed By: #### P HY, BUN, CREAT, FX ####Testing performed at [address] [address] GAL NEW PHYSICIANon 08-31-20 18 GAL BANNER PHYSICIAN DEVAN UP [facility] Comment on above: Performed By: #### P HY, BUN, CREAT, FX ####Testing performed at [address] [address] BUNon 08-27-2018 Urea nitrogen mass conc 24 mg/dL High 03-27 [facility] Comment on above: Performed By: #### 2 [id number] ####OVIDIO [address] [place] [address] Creatinineon 08-27-2018 Creatinine mass conc 1.6 mg/dL High 0.5-1.1 [facility] Comment on above: Performed By: #### 2 [id number] ####OVIDIO [address]fle[address]zn[address]505 [place] [address] eGFRon 08-27-2018 eGFR AA 43 mL/min/1.73 m2 [facility] Comment on above: Order Comment: Order added by Discern Expert. Performed By: #### 1 [id number] ####OVIDIO Fr[address]Zdun0103 [place] [address] GFR/1.73 sq M predicted among non-blacks MDRD vol rate/area (S/P/Bld) 36 mL/min/1.73 m2 [facility] Comment on above: Order Comment: Order added by Discern Expert. Performed By: #### 1 [id number] ####OVIDIO FhsPosm2689 [place] [address] Cult,Tissueon 08-26-2018 Cult,Tissue Specimen Description .TISSUE EPIDURAL [...] REPORTED Trimethoprim/Sulfa <=10 SUSCEPTIBLE Vancomycin <=0.5 SUSCEPTIBLE [facility] Comment on above: Performed By: #### L ACWB #### [employer] [address] [place] [address] Cult,Tissue Specimen Description .SPINE .TISSUE T4 [...] REPORTED Trimethoprim/Sulfa <=10 SUSCEPTIBLE Vancomycin <=0.5 SUSCEPTIBLE [facility] Comment on above: Performed By: #### L ACWB #### [employer] [address] [place] [address] [id number] Basic Metabolic Profon 08-25 (cont.) [facility] Comment on above: Result Comment: Aver age GFR for 30-39 years old: 107 mL/min/1.73sq m Chronic Kidney Disease: <60 mL/min/1.73sq m Kidney failure: <15 mL/min/1.73sq m eGFR calculated using average adult body mass. Additional eGFR calculator available at: http://www.[employer].SportID/multiple_crcl_2011.htm Performed By: #### L ACWB #### [facility] [address] [place] [address] Anion gap molar conc 14 mmol/L Normal 9-17 [facility] Comment on above: Performed By: #### L ACWB #### [facility] [address] [place] [address] Calcium mass conc 9.1 mg/dL Normal 8.6-10.4 [facility] Comment on above: Performed By: #### L ACWB #### [facility] [employer] [address] [place] [address] Chloride molar conc 96 mmol/L Low 98-107 [facility] Comment on above: Performed By: #### L ACWB #### [facility] [address] [place] [address] CO2 molar conc 23 mmol/L Normal 20-31 [facility] Comment on above: Performed By: #### L ACWB #### [facility] [address] [place] [address] Creatinine mass conc 1.52 mg/dL High 0.50-0.90 [facility] Comment on above: Performed By: #### L ACWB #### [facility] [address] [place] [address] GFR, Amer 46 mL/min Low >60 [facility] Comment on above: Performed By: #### L ACWB #### [facility] [address] [place] [address] GFR,non Amer 38 mL/min Low >60 [facility] Comment on above: Performed By: #### L ACWB #### [facility] [employer] [address] [place] [address] Glucose mass conc 95 mg/dL Normal 70-99 [facility] Comment on above: Performed By: #### L ACWB #### [facility] [employer] [address] [place] [address] Potassium molar conc 4.5 mmol/L Normal 3.7-5.3 [facility] Comment on above: Performed By: #### L ACWB #### [facility] [employer] [address] [place] [address] Sodium molar conc 133 mmol/L Low 135-144 [facility] Comment on above: Performed By: #### L ACWB #### [facility] [employer] [address] [place] [address] Urea nitrogen mass conc 43 mg/dL High 6-20 [facility] Comment on above: Performed By: #### L ACWB #### [facility] [employer] [address] [place] [address] BUN/CRE Ratio NOT REPORTED Normal -20 [facility] Comment on above: Performed By: #### L ACWB #### [address] [address] Staging: NOT REPORTED Normal [facility] Comment on above: Performed By: #### L ACWB #### [facility] [employer] [address] [place] [address] CBC with Diffon 08-25-2018 Abs. Basophil 0.07 k/uL Normal 0.00-0.20 [facility] Comment on above: Performed By: #### L ACWB #### [facility] [employer] [address] [place] [address]493 Abs.Imm.Granulocyte 0.08 k/uL Normal 0.00-0.30 [facility] Comment on above: Performed By: #### L ACWB #### [facility] [employer] [address] [place] [address] 67977 Abs.Neutrophil (Seg) 5.77 k/uL Normal 1.50-8.10 [facility] Comment on above: Performed By: #### L ACWB #### [address] [address] Basophils/100 WBC (Bld) 1 % Normal 0-2 [facility] Comment on above: Performed By: #### L ACWB #### [address] [address] Eosinophils #/vol (Bld) 0.12 10*3/uL Normal 0.00-0.44 [facility] Comment on above: Performed By: #### L ACWB #### [address] [address] Eosinophils/100 WBC (Bld) 1 % Normal 1-4 [facility] Comment on above: Performed By: #### L ACWB #### [address] [address] Immature granulocytes #/vol (Bld) 1 % High 0 [facility] Comment on above: Performed By: #### L ACWB #### [address] [address] Lymphocytes #/vol (Bld) 1.83 10*3/uL Normal 1.10-3.70 [facility] Comment on above: Performed By: #### L ACWB #### [address] [address] Lymphocytes/100 WBC (Bld) 21 % Low 24-43 [facility] Comment on above: Performed By: #### L ACWB #### [address] [address] Monocytes #/vol (Bld) 0.92 10*3/uL Normal 0.10-1.20 [facility] Comment on above: Performed By: #### L ACWB #### [address] [address] Monocytes/100 WBC (Bld) 11 % Normal 3-12 [facility] Comment on above: Performed By: #### L ACWB #### [address] [address]55 Neutrophil (Seg) 66 % High 36-65 [facility] Comment on above: Performed By: #### L ACWB #### [address] [address] Erythrocyte distribution width Ratio (RBC) 14.6 % High 11.8-14.4 [facility] Comment on above: Performed By: #### L ACWB #### [address] [address]891 Hematocrit Volume Fraction (Bld) 32.6 % Low 36.3-47.1 [facility] Comment on above: Performed By: #### L ACWB #### [address] 6[address]71 Hemoglobin mass conc (Bld) 10.0 g/dL Low 11.9-15.1 [facility] Comment on above: Performed By: #### L ACWB #### [address] 85827 MCH Entitic mass (RBC) 28.2 pg Normal 25.2-33.5 [facility] Comment on above: Performed By: #### L ACWB #### [address] [address]990 MCHC mass conc (RBC) 30.7 g/dL Normal 28.4-34.8 [facility] Comment on above: Performed By: #### L ACWB #### [address] 92691 MCV Entitic volume (RBC) 91.8 fL Normal 82.6-102.9 [facility] Comment on above: Performed By: #### L ACWB #### [address] 6[address] NRBC Automated 0.0 per 100 WBC Normal 0.0 [facility] Comment on above: Performed By: #### L ACWB #### [facility] [employer] [address] [place] [address] 36364 Platelet mean volume Entitic volume (Bld) 10.4 fL Normal 8.1-13.5 [facility] Comment on above: Performed By: #### L ACWB #### [address] [address] Platelets #/vol (Bld) 292 10*3/uL Normal 138-453 [facility] Comment on above: Performed By: #### L ACWB #### [address] [address]80 RBC #/vol (Bld) 3.55 10*6/uL Low 3.95-5.11 [facility] Comment on above: Performed By: #### L ACWB #### [address] 29[address] RBC morphology finding Nom (Bld) ANISOCYTOSIS PRESENT Normal [facility] Comment on above: Performed By: #### L ACWB #### [address] [address] WBC #/vol (Bld) 8.8 10*3/uL Normal 3.5-11.3 [facility] Comment on above: Performed By: #### L ACWB #### [address] [address] Auto Diff Performed NOT REPORTED Normal [facility] Comment on above: Performed By: #### L ACWB #### [facility] [employer] [address] [place] [address] 50245 Platelets #/vol (Bld) NOT REPORTED Normal [facility] Comment on above: Performed By: #### L ACWB #### [facility] [employer] [address] [place] [address] 95190 WBC Morphology NOT REPORTED Normal [facility] Comment on above: Performed By: #### L ACWB #### [facility] [employer] [address] [place] [address] 39472 Fungi,Direct Examon 08-25-20 18 Fungi,Direct Exam Specimen Description .SPINE .TISSUE T4 LAMINA Special Requests NOT REPORTED Direct Exam NO FUNGAL ELEMENTS SEEN Report Status FINAL 08/25/2018 Normal [facility] Comment on above: Performed By: #### L ACWB #### [facility] [employer] [address] [place] [address] 78532 Magnesiumon 08-25-2018 Magnesium mass conc 2.4 mg/dL Normal 1.6-2.6 [facility] Comment on above: Performed By: #### L ACWB #### [facility] [employer] [address] [place] [address] 58238 Procalcitoninon 08-25-2018 Protein mass conc 0.13 ng/mL High <0.09 [facility] Comment on above: Result Comment: Suspected Sepsis: [...] entered into the Change in Procalcitonin Calculator (www.upxjnw-nof-nxyilyyddg.com) to determine the patient's Mortality Risk Prognosis Performed By: #### L ACWB #### [address] [id number] Cult,Aerobe/Anaerobeon 08-24 Cult,Aerobe/Anaerobe Specimen Descriptio n .SPINE Special Requests NOT REPORTED Direct Exam DUPLICATE ORDER SEE RESULTS FOR TISSUE CULTURE Culture NOT REPORTED Report Status FINAL 08/24/2018 [facility] Comment on above: Performed By: #### S PAG #### [address] [address] Cult,Aerobe/Anaerobe Specimen Descriptio n .SPINE Special Requests NOT REPORTED Direct Exam DUPLICATE ORDER SEE RESUULTS FOR TISSUE CULTURE Culture NOT REPORTED Report Status FINAL 08/24/2018 [facility] Comment on above: Performed By: #### S PAG #### [address] [id number] FLUORO FOR SURGICAL PROCEDUR ESon 08-24-2018 FLUORO FOR SURGICAL PROCEDURES Radiology exam is complete. No Radiologist dictation. Please follow up with ordering provider. Final result Normal [facility] OPERATIVE REPORTon 8 OPERATIVE REPORT [address] [address] OPERATIVE REPORT PATIENT NAME: CELINA GASPAR : 1980 MED REC NO: [id number] ROOM: [id number] ACCOUNT NO: [id number] ADMIT DATE: 08/15/2018 PROVIDER: Lita Mccray MD DATE OF PROCEDURE: 08/23/2018 SURGEON: Lita Mccray MD [employer] COORDINATOR: Eliel Larios DO PREOPERATIVE DIAGNOSIS: Epidural abscess, T3, T4, T5. POSTOPERATIVE DIAGNOSES: Epidural abscess, T3, T4, T5 with chronic granulation, T3, T4, T5. OPERATIONS/PROCEDURE S: Decompressive laminectomy, T4, with partial T3 and [...] satisfactory condition. LITA MCCRAY MD [id number] Doc#: [id number] CC: Lita Mccray MD [facility] Procalcitoninon 08-24-2018 Protein mass conc 0.16 ng/mL High <0.09 [facility] Comment on above: Result Comment: Suspected Sepsis: [...] entered into the Change in Procalcitonin Calculator (www.hwetkb-okz-imscregzuo.com) to determine the patient's Mortality Risk Prognosis Performed By: #### S PAG #### [employer] [address] [place] [address] Basic Metab w/rfx MGon 11-19 -2018 (cont.) Normal [facility] Comment on above: Result Comment: Aver age GFR for 30-39 years old: 107 mL/min/1.73sq m Chronic Kidney Disease: <60 mL/min/1.73sq m Kidney failure: <15 mL/min/1.73sq m eGFR calculated using average adult body mass. Additional eGFR calculator available at: http://www.[employer]attermark/multiple_crcl_2012.htm Performed By: #### S PAG #### [facility] [employer] [address] [place] [address]702 Anion gap molar conc 14 mmol/L Normal 9-17 [facility] Comment on above: Performed By: #### S PAG #### [address] [address] Calcium mass conc 9.9 mg/dL Normal 8.6-10.4 [facility] Comment on above: Performed By: #### S PAG #### [facility] [employer] [address] [place] [address] 71309 Chloride molar conc 99 mmol/L Normal 98-107 [facility] Comment on above: Performed By: #### S PAG #### [facility] [employer] [address] [place] [address] 10805 CO2 molar conc 26 mmol/L Normal 20-31 [facility] Comment on above: Performed By: #### S PAG #### [facility] [employer] [address] [place] [address] 22952 Creatinine mass conc 1.42 mg/dL High 0.50-0.90 [facility] Comment on above: Performed By: #### S PAG #### [facility] [employer] [address] [place] [address] 96383 GFR, Amer 50 mL/min Low >60 [facility] Comment on above: Performed By: #### S PAG #### [facility] [employer] [address] [place] [address] 37759 GFR,non Amer 41 mL/min Low >60 [facility] Comment on above: Performed By: #### S PAG #### [address] [address] Glucose mass conc 95 mg/dL Normal 70-99 [facility] Comment on above: Performed By: #### S PAG #### [facility] [employer] [address] [place] [address] 23023 Potassium molar conc 4.9 mmol/L Normal 3.7-5.3 [facility] Comment on above: Result Comment: SPEC IMEN SLIGHTLY HEMOLYZED, RESULTS MAY BE ADVERSELY AFFECTED. Performed By: #### S PAG #### [facility] [employer] [address] [place] [address] 78720 Sodium molar conc 139 mmol/L Normal 135-144 [facility] Comment on above: Performed By: #### S PAG #### [facility] [employer] [address] [place] [address] 77450 Urea nitrogen mass conc 31 mg/dL High 6-20 [facility] Comment on above: Performed By: #### S PAG #### [facility] [employer] [address] [place] [address] 09747 BUN/CRE Ratio NOT REPORTED Normal 9-20 [facility] Comment on above: Performed By: #### S PAG #### [facility] [employer] [address] [place] [address] 91839 Staging: NOT REPORTED Normal [facility] Comment on above: Performed By: #### S PAG #### [facility] [employer] [address] [place] [address] 94706 CBC with Diffon 08-23-2018 Abs. Basophil 0.06 k/uL Normal 0.00-0.20 [facility] Comment on above: Performed By: #### S PAG #### [facility] [employer] [address] [place] [address] 01891 Abs.Imm.Granulocyte 0.22 k/uL Normal 0.00-0.30 [facility] Comment on above: Performed By: #### S PAG #### [address] [address] Abs.Neutrophil (Seg) 4.43 k/uL Normal 1.50-8.10 [facility] Comment on above: Performed By: #### S PAG #### [address] [address] Basophils/100 WBC (Bld) 1 % Normal 0-2 [facility] Comment on above: Performed By: #### S PAG #### [address] [address] Eosinophils #/vol (Bld) 0.15 10*3/uL Normal 0.00-0.44 [facility] Comment on above: Performed By: #### S PAG #### [address] [address] Eosinophils/100 WBC (Bld) 2 % Normal 1-4 [facility] Comment on above: Performed By: #### S PAG #### [address] [address] Erythrocyte distribution width Ratio (RBC) 14.4 % Normal 11.8-14.4 [facility] Comment on above: Performed By: #### S PAG #### [address] [address] Hematocrit Volume Fraction (Bld) 33.2 % Low 36.3-47.1 [facility] Comment on above: Performed By: #### S PAG #### [facility] [employer] [address] [place] [address] 75829 Hemoglobin mass conc (Bld) 10.4 g/dL Low 11.9-15.1 [facility] Comment on above: Performed By: #### S PAG #### [address] [address]859 Immature granulocytes #/vol (Bld) 3 % High 0 [facility] Comment on above: Performed By: #### S PAG #### [address] [address] Lymphocytes #/vol (Bld) 2.22 10*3/uL Normal 1.10-3.70 [facility] Comment on above: Performed By: #### S PAG #### [address] [address] Lymphocytes/100 WBC (Bld) 29 % Normal 24-43 [facility] Comment on above: Performed By: #### S PAG #### [address] [address] MCH Entitic mass (RBC) 27.7 pg Normal 25.2-33.5 [facility] Comment on above: Performed By: #### S PAG #### [address] [address]54 MCHC mass conc (RBC) 31.3 g/dL Normal 28.4-34.8 [facility] Comment on above: Performed By: #### S PAG #### [address] 90761 MCV Entitic volume (RBC) 88.3 fL Normal 82.6-102.9 [facility] Comment on above: Performed By: #### S PAG #### [address] [address] Monocytes #/vol (Bld) 0.63 10*3/uL Normal 0.10-1.20 [facility] Comment on above: Performed By: #### S PAG #### [address] [place] [address] Monocytes/100 WBC (Bld) 8 % Normal 3-12 [facility] Comment on above: Performed By: #### S PAG #### [address] [address] Neutrophil (Seg) 57 % Normal 36-65 [facility] Comment on above: Performed By: #### S PAG #### [address] [address] NRBC Automated 0.0 per 100 WBC Normal 0.0 [facility] Comment on above: Performed By: #### S PAG #### [address] [address] Platelets #/vol (Bld) See Reflexed IPF Result Normal 138-453 [facility] Comment on above: Performed By: #### S PAG #### [address] [address] RBC #/vol (Bld) 3.76 10*6/uL Low 3.95-5.11 [facility] Comment on above: Performed By: #### S PAG #### [address] [address] WBC #/vol (Bld) 7.7 10*3/uL Normal 3.5-11.3 [facility] Comment on above: Performed By: #### S PAG #### [facility] [employer] [address] [place] [address] 24163 Auto Diff Performed NOT REPORTED Normal [facility] Comment on above: Performed By: #### S PAG #### [address] [address] Platelet mean volume Entitic volume (Bld) NOT REPORTED Normal 8.1-13.5 [facility] Comment on above: Performed By: #### S PAG #### [address] [address] Platelets #/vol (Bld) NOT REPORTED Normal [facility] Comment on above: Performed By: #### S PAG #### [address] [address] RBC morphology finding Nom (Bld) NOT REPORTED Normal [facility] Comment on above: Performed By: #### S PAG #### [address] [address] WBC Morphology NOT REPORTED Normal [facility] Comment on above: Performed By: #### S PAG #### [address] [address] Cult,Bloodon 08-23-2018 Cult,Blood Specimen Description .BLOOD Special Requests L AC 6ML Culture NO GROWTH 6 DAYS Report Status FINAL 08/23/2018 [facility] Comment on above: Performed By: #### S PAG #### [address] [address] Cult,Blood Specimen Description .BLOOD Special Requests L FOREARM 6ML Culture NO GROWTH 6 DAYS Report Status FINAL 08/23/2018 [facility] Comment on above: Performed By: #### S PAG #### [address] [address] PLT, Immature Fract.on 08-23 Platelet, Fluoresc. 113 k/uL Low 138-453 [facility] Comment on above: Performed By: #### S PAG #### [address] [address] PLT, Immature Fract. 3.7 % Normal 1.1-10.3 [facility] Comment on above: Performed By: #### S PAG #### [address] [address] CBC with Diffon 08-22-2018 Abs. Basophil 0.00 k/uL Normal 0.0-0.2 [facility] Comment on above: Performed By: #### U LAG #### [address] [address] Abs.Imm.Granulocyte 0.30 k/uL Normal 0.00-0.30 [facility] Comment on above: Performed By: #### U LAG #### [address] [address] Abs.Neutrophil (Seg) 4.87 k/uL Normal 1.8-7.7 [facility] Comment on above: Performed By: #### U LAG #### [address] [address] Basophils/100 WBC (Bld) 0 % Normal 0-2 [facility] Comment on above: Performed By: #### U LAG #### [address] [address] Eosinophils #/vol (Bld) 0.00 10*3/uL Normal 0.0-0.4 [facility] Comment on above: Performed By: #### U LAG #### [address] [address] Eosinophils/100 WBC (Bld) 0 % Low 1-4 [facility] Comment on above: Performed By: #### U LAG #### [address] [address] Immature granulocytes #/vol (Bld) 4 % High 0 [facility] Comment on above: Performed By: #### U LAG #### [address] [address] Lymphocytes #/vol (Bld) 1.88 10*3/uL Normal 1.0-4.8 [facility] Comment on above: Performed By: #### U LAG #### [address] [place] [address] Lymphocytes/100 WBC (Bld) 25 % Normal 24-44 [facility] Comment on above: Performed By: #### U LAG #### [address] [address] Monocytes #/vol (Bld) 0.45 10*3/uL Normal 0.1-0.8 [facility] Comment on above: Performed By: #### U LAG #### [address] [address] Monocytes/100 WBC (Bld) 6 % Normal 1-7 [facility] Comment on above: Performed By: #### U LAG #### [address] [address] Morphology Interp Rehan (Bld) ANISOCYTOSIS PRESENT Normal [facility] Comment on above: Performed By: #### U LAG #### [address] [address] Neutrophil (Seg) 65 % Normal 36-66 [facility] Comment on above: Performed By: #### U LAG #### [address] [address] Erythrocyte distribution width Ratio (RBC) 14.5 % High 11.8-14.4 [facility] Comment on above: Performed By: #### U LAG #### [address] [address] Hematocrit Volume Fraction (Bld) 38.1 % Normal 36.3-47.1 [facility] Comment on above: Performed By: #### U LAG #### [address] [address] Hemoglobin mass conc (Bld) 11.5 g/dL Low 11.9-15.1 [facility] Comment on above: Performed By: #### U LAG #### [address] [address] MCH Entitic mass (RBC) 28.3 pg Normal 25.2-33.5 [facility] Comment on above: Performed By: #### U LAG #### [address] [address]15 MCHC mass conc (RBC) 30.2 g/dL Normal 28.4-34.8 [facility] Comment on above: Performed By: #### U LAG #### [address] [address] MCV Entitic volume (RBC) 93.6 fL Normal 82.6-102.9 [facility] Comment on above: Performed By: #### U LAG #### [address] [address] NRBC Automated 0.0 per 100 WBC Normal 0.0 [facility] Comment on above: Performed By: #### U LAG #### [address] 8[address]77 Platelet mean volume Entitic volume (Bld) 10.7 fL Normal 8.1-13.5 [facility] Comment on above: Performed By: #### U LAG #### [address] [address] Platelets #/vol (Bld) 265 10*3/uL Normal 138-453 [facility] Comment on above: Performed By: #### U LAG #### [address] [address] RBC #/vol (Bld) 4.07 10*6/uL Normal 3.95-5.11 [facility] Comment on above: Performed By: #### U LAG #### [facility] [address] [place] [address] WBC #/vol (Bld) 7.5 10*3/uL Normal 3.5-11.3 [facility] Comment on above: Performed By: #### U LAG #### [facility] [employer] [address] [place] [address] 8[address] Auto Diff Performed NOT REPORTED Normal [facility] Comment on above: Performed By: #### U LAG #### [facility] [employer] [address] [place] [address] 88457 Platelets #/vol (Bld) NOT REPORTED Normal [facility] Comment on above: Performed By: #### U LAG #### [facility] [employer] [address] [place] [address] 54674 RBC morphology finding Nom (Bld) NOT REPORTED Normal [facility] Comment on above: Performed By: #### U LAG #### [facility] [employer] [address] [place] [address] 58028 WBC Morphology NOT REPORTED Normal [facility] Comment on above: Performed By: #### U LAG #### [facility] [employer] [address] [place] [address] 6[address] Comp Metabolic Pr/rfx MGon 1 10-22-2017 Albumin mass conc 3.2 g/dL Low 3.5-5.2 [facility] Comment on above: Performed By: #### U LAG #### [facility] [employer] [address] [place] [address]28 Albumin/Globulin mass ratio 0.8 {ratio} Low 1.0-2.5 [facility] Comment on above: Performed By: #### U LAG #### [facility] [employer] [address] [place] [address] 88998 Alkaline Phos 90 U/L Normal 35-104 [facility] Comment on above: Performed By: #### U LAG #### [facility] [employer] [facility] [place] [address] ALT enzyme act/vol 18 U/L Normal 5-33 [facility] Comment on above: Performed By: #### U LAG #### [facility] [employer] [address] [place] [address] 66957 AST enzyme act/vol 16 U/L Normal <32 [facility] Comment on above: Performed By: #### U LAG #### [facility] [employer] [address] [place] [address] 51051 Protein mass conc 7.0 g/dL Normal 6.4-8.3 [facility] Comment on above: Performed By: #### U LAG #### [facility] [employer] [address] [place] [address]05 (cont.) Normal [facility] Comment on above: Result Comment: Aver age GFR for 30-39 years old: 107 mL/min/1.73sq m Chronic Kidney Disease: <60 mL/min/1.73sq m Kidney failure: <15 mL/min/1.73sq m eGFR calculated using average adult body mass. Additional eGFR calculator available at: http://www.[employer]ID/multiple_crcl_2012.htm Performed By: #### U LAG #### [facility] [employer] [address] [place] [address] 89155 Anion gap molar conc 15 mmol/L Normal 9-17 [facility] Comment on above: Performed By: #### U LAG #### [facility] [employer] [facility] [place] [address] Bilirubin Ql (U) 0.34 mg/dL Normal 0.3-1.2 [facility] Comment on above: Performed By: #### U LAG #### [facility] [employer] [address] [place] [address] 28268 Calcium mass conc 9.7 mg/dL Normal 8.6-10.4 [facility] Comment on above: Performed By: #### U LAG #### [facility] [address] [place] [address] 5[address]12 Chloride molar conc 100 mmol/L Normal 98-107 [facility] Comment on above: Performed By: #### U LAG #### [facility] [address] [place] [address] 86337 CO2 molar conc 24 mmol/L Normal 20-31 [facility] Comment on above: Performed By: #### U LAG #### [facility] [employer] [address] [place] [address] 03748 Creatinine mass conc 1.02 mg/dL High 0.50-0.90 [facility] Comment on above: Performed By: #### U LAG #### [facility] [address] [place] [address] 91203 GFR, Amer >60 Normal >60 [facility] Comment on above: Performed By: #### U LAG #### [facility] [address] [place] [address] 88253 GFR,non Amer >60 Normal >60 [facility] Comment on above: Performed By: #### U LAG #### [facility] [address] [place] [address]12 Glucose mass conc 101 mg/dL High 70-99 [facility] Comment on above: Performed By: #### U LAG #### [facility] [employer] [address] [place] [address] Potassium molar conc 4.5 mmol/L Normal 3.7-5.3 [facility] [facility] Comment [facility]: Performed By: #### U LAG #### [facility] [employer] [address] [place] [address] 91576 Sodium molar conc 139 mmol/L Normal 135-144 [facility] Comment on above: Performed By: #### U LAG #### [facility] [employer] [facility] [place] [address] Urea nitrogen mass conc 19 mg/dL Normal - [facility] Comment on above: Performed By: #### U LAG #### [facility] [employer] [address] [place] [address] 50101 BUN/CRE Ratio NOT REPORTED Normal 06-24 [facility] Comment on above: Performed By: #### U LAG #### [facility] [employer] [address] [place] [address] 28340 Staging: NOT REPORTED Normal [facility] Comment on above: Performed By: #### U LAG #### [facility] [employer] [address] [place] [address] 73910 Magnesiumon 08-22-2018 Magnesium mass conc 2.4 mg/dL Normal 1.6-2.6 [facility] Comment on above: Performed By: #### U LAG #### [facility] [employer] [address] [place] [address] 10302 Vancomycin Troughon 08-22-20 Vancomycin Trough 20.2 ug/mL Critically high 10.0-20.0 [facility] Comment on above: Result Comment: High er trough serum vancomycin concentrations of 15-20 ug/mL are recommended for complicated infections such as bacteremia, endocarditis, osteomyelitis, meningitis, and hospital acquired pneumonia. ADDED ON Performed By: #### U LAG #### [facility] [address] [place] [address] 38274 Date last dose, NOT REPORTED Normal [facility] Comment on above: Performed By: #### U LAG #### [facility] [employer] [address] [place] [address] 22054 Dose amount, NOT REPORTED Normal [facility] Comment on above: Performed By: #### U LAG #### [facility] [employer] [address] [place] [address] 64274 Time last dose, NOT REPORTED Normal [facility] Comment on above: Performed By: #### U LAG #### [address] [address] CBC with Diffon 08-21-2018 Abs. Basophil 0.08 k/uL Normal 0.00-0.20 [facility] Comment on above: Performed By: #### U LAG #### [address] [address] Abs.Imm.Granulocyte 0.50 k/uL High 0.00-0.30 [facility] Comment on above: Performed By: #### U LAG #### [address] [address] Abs.Neutrophil (Seg) 4.73 k/uL Normal 1.50-8.10 [facility] Comment on above: Performed By: #### U LAG #### [address] [address] Basophils/100 WBC (Bld) 1 % Normal 0-2 [facility] Comment on above: Performed By: #### U LAG #### [address] [address] Eosinophils #/vol (Bld) 0.17 10*3/uL Normal 0.00-0.44 [facility] Comment on above: Performed By: #### U LAG #### [facility] [employer] [address] [place] [address] 31481 Eosinophils/100 WBC (Bld) 2 % Normal 1-4 [facility] Comment on above: Performed By: #### U LAG #### [address] [address] Immature granulocytes #/vol (Bld) 6 % High 0 [facility] Comment on above: Performed By: #### U LAG #### [facility] [employer] [address] [place] [address] 51426 Lymphocytes #/vol (Bld) 2.24 10*3/uL Normal 1.10-3.70 [facility] Comment on above: Performed By: #### U LAG #### [address] [address] Lymphocytes/100 WBC (Bld) 27 % Normal 24-43 [facility] Comment on above: Performed By: #### U LAG #### [facility] [employer] [address] [place] [address] 28929 Monocytes #/vol (Bld) 0.58 10*3/uL Normal 0.10-1.20 [facility] Comment on above: Performed By: #### U LAG #### [facility] [employer] [address] [place] [address] 56647 Monocytes/100 WBC (Bld) 7 % Normal 3-12 [facility] Comment on above: Performed By: #### U LAG #### [facility] [employer] [address] [place] [address] 24958 Morphology Interp Rehan (Bld) ANISOCYTOSIS PRESENT Normal [facility] Comment on above: Performed By: #### U LAG #### [facility] [employer] [address] [place] [address] 65219 Neutrophil (Seg) 57 % Normal 36-65 [facility] Comment on above: Performed By: #### U LAG #### [facility] [employer] [address] [place] [address] 89873 Erythrocyte distribution width Ratio (RBC) 14.6 % High 11.8-14.4 [facility] Comment on above: Performed By: #### U LAG #### [facility] [employer] [address] [place] [address] 24707 Hematocrit Volume Fraction (Bld) 38.5 % Normal 36.3-47.1 [facility] Comment on above: Performed By: #### U LAG #### [facility] [employer] [address] [place] [address] 67618 Hemoglobin mass conc (Bld) 11.5 g/dL Low 11.9-15.1 [facility] Comment on above: Performed By: #### U LAG #### [facility] [employer] [address] [place] [address] 77865 MCH Entitic mass (RBC) 28.2 pg Normal 25.2-33.5 [facility] Comment on above: Performed By: #### U LAG #### [facility] [employer] [address] [place] [address] 51770 MCHC mass conc (RBC) 29.9 g/dL Normal 28.4-34.8 [facility] Comment on above: Performed By: #### U LAG #### [facility] [employer] [address] [place] [address] 29866 MCV Entitic volume (RBC) 94.4 fL Normal 82.6-102.9 [facility] Comment on above: Performed By: #### U LAG #### [facility] [employer] [address] [place] [address] 10606 NRBC Automated 0.0 per 100 WBC Normal 0.0 [facility] Comment on above: Performed By: #### U LAG #### [facility] [employer] [address] [place] [address] 72837 Platelet mean volume Entitic volume (Bld) 10.5 fL Normal 8.1-13.5 [facility] Comment on above: Performed By: #### U LAG #### [address] [address] Platelets #/vol (Bld) 264 10*3/uL Normal 138-453 [facility] Comment on above: Performed By: #### U LAG #### [employer] [address] [place] [address] 94400 RBC #/vol (Bld) 4.08 10*6/uL Normal 3.95-5.11 [facility] Comment on above: Performed By: #### U LAG #### [facility] [employer] [address] [place] [address] 28645 WBC #/vol (Bld) 8.3 10*3/uL Normal 3.5-11.3 [facility] Comment on above: Performed By: #### U LAG #### [facility] [employer] [address] [place] [address] 05041 Auto Diff Performed NOT REPORTED Normal [facility] Comment on above: Performed By: #### U LAG #### [facility] [employer] [address] [place] [address] 96675 Platelets #/vol (Bld) NOT REPORTED Normal [facility] Comment on above: Performed By: #### U LAG #### [facility] [employer] [address] [place] [address] 85986 RBC morphology finding Nom (Bld) NOT REPORTED Normal [facility] Comment on above: Performed By: #### U LAG #### [facility] [employer] [address] [place] [address] 81560 WBC Morphology NOT REPORTED Normal [facility] Comment on above: Performed By: #### U LAG #### [address] [address] Comp Metabolic Pr/rfx MGon 1 10-21-2017 (cont.) Normal [facility] Comment on above: Result Comment: Aver age GFR for 30-39 years old: 107 mL/min/1.73sq m Chronic Kidney Disease: <60 mL/min/1.73sq m Kidney failure: <15 mL/min/1.73sq m eGFR calculated using average adult body mass. Additional eGFR calculator available at: http://www.globalrph.SportID/multiple_crcl_2012.htm Performed By: #### U LAG #### [facility] [employer] [facility] [place] [address] Albumin mass conc 2.9 g/dL Low 3.5-5.2 [facility] Comment on above: Performed By: #### U LAG #### [facility] [employer] [address] [place] [address] 24855 Albumin/Globulin mass ratio 0.7 {ratio} Low 1.0-2.5 [facility] Comment on above: Performed By: #### U LAG #### [facility] [employer] [address] [place] [address] 98571 Alkaline Phos 98 U/L Normal 35-104 [facility] Comment on above: Performed By: #### U LAG #### [facility] [employer] [address] [place] [address] 03470 ALT enzyme act/vol 19 U/L Normal 5-33 [facility] Comment on above: Performed By: #### U LAG #### [facility] [employer] [address] [place] [address] 52408 Anion gap molar conc 14 mmol/L Normal 9-17 [facility] Comment on above: Performed By: #### U LAG #### [facility] [employer] [address] [place] [address] 28144 AST enzyme act/vol 21 U/L Normal <32 [facility] Comment on above: Performed By: #### U LAG #### [facility] [employer] [address] [place] [address] 13208 Bilirubin Ql (U) 0.32 mg/dL Normal 0.3-1.2 [facility] Comment on above: Performed By: #### U LAG #### [facility] [employer] [address] [place] [address] 34690 Calcium mass conc 9.1 mg/dL Normal 8.6-10.4 [facility] Comment on above: Performed By: #### U LAG #### [facility] [address] [place] [address] 68457 Chloride molar conc 102 mmol/L Normal 98-107 [facility] Comment on above: Performed By: #### U LAG #### [facility] [address] [place] [address] 91376 CO2 molar conc 23 mmol/L Normal 20-31 [facility] Comment on above: Performed By: #### U LAG #### [facility] [employer] [address] [place] [address] 48071 Creatinine mass conc 0.90 mg/dL Normal 0.50-0.90 [facility] Comment on above: Performed By: #### U LAG #### [facility] [address] [place] [address] 26595 GFR, Amer >60 Normal >60 [facility] Comment on above: Performed By: #### U LAG #### [facility] [address] [place] [address] 86764 GFR,non Amer >60 Normal >60 [facility] Comment on above: Performed By: #### U LAG #### [employer] [address] [place] [address] 32922 Glucose mass conc 108 mg/dL High 70-99 [facility] Comment on above: Performed By: #### U LAG #### [facility] [address] [place] [address] 80854 Potassium molar conc 4.6 mmol/L Normal 3.7-5.3 [facility] Comment on above: Performed By: #### U LAG #### [facility] [employer] [address] [place] [address] 74780 Protein mass conc 6.9 g/dL Normal 6.4-8.3 [facility] Comment on above: Performed By: #### U LAG #### [facility] [employer] [address] [place] [address] 78252 Sodium molar conc 139 mmol/L Normal 135-144 [facility] Comment on above: Performed By: #### U LAG #### [facility] [address] [place] [address] 36118 Urea nitrogen mass conc 17 mg/dL Normal - [facility] Comment on above: Performed By: #### U LAG #### [facility] [employer] [address] [place] [address] 98365 BUN/CRE Ratio NOT REPORTED Normal - [facility] Comment on above: Performed By: #### U LAG #### [facility] [employer] [address] [place] [address] 26544 Staging: NOT REPORTED Normal [facility] Comment on above: Performed By: #### U LAG #### [facility] [employer] [address] [place] [address] 16718 Cult,Bloodon 08-21-2018 Cult,Blood Specimen Description .BLOOD Special Requests L AC 20ML Culture POSITIVE Blood Culture CALLED TO MIS Medina [phone] [id number] DIRECT GRAM STAIN FROM BOTTLE: GRAM POSITIVE COCCI IN CLUSTERS METHICILLIN RESISTANT STAPHYLOCOCCUS AUREUS For susceptibility, refer to previous culture. Report Status FINAL 08/21/2018 Normal [facility] Comment on above: Performed By: #### U LAG #### [address] [address] MRI FOOT LEFT W WO CONTRASTo n [...] tarsal metatarsal joints can be seen with infection/osteomyeli tis from a hematogenous source in the appropriate [...] Murali Goff MD 08/21/18 Final result Normal [facility] Magnesiumon 08-21-2018 Magnesium mass conc 2.4 mg/dL Normal 1.6-2.6 [facility] Comment on above: Performed By: #### U LAG #### [facility] [address] [place] [address] Procalcitoninon 08-21-2018 Protein mass conc 0.27 ng/mL High <0.09 [facility] Comment on above: Result Comment: Suspected Sepsis: [...] entered into the Change in Procalcitonin Calculator ([email or web address]-asi-axqvxfjyab.SportID) to determine the patient's Mortality Risk Prognosis Performed By: #### U LAG #### [facility] [address] [place] [address] 88613 C-Reactive Proteinon 018 CRP mass conc 50.4 mg/L High 0.0-5.0 [facility] Comment on above: Performed By: #### L ACDS, TROPI, PRCAL, MYCM #### [facility] [employer] [address] [place] [address] 35815 CBC with Diffon 08-20-2018 Abs. Basophil 0.08 k/uL Normal 0.0-0.2 [facility] Comment on above: Performed By: #### L ACDS, TROPI, PRCAL, MYCM #### [employer] [address] [place] [address] 56011 Abs.Imm.Granulocyte 0.42 k/uL High 0.00-0.30 [facility] Comment on above: Performed By: #### L ACDS, TROPI, PRCAL, MYCM #### [facility] [address] [place] [address] 47984 Abs.Neutrophil (Seg) 4.57 k/uL Normal 1.8-7.7 [facility] Comment on above: Performed By: #### L ACDS, TROPI, PRCAL, MYCM #### [address] [address] Basophils/100 WBC (Bld) 1 % Normal 0-2 [facility] Comment on above: Performed By: #### L ACDS, TROPI, PRCAL, MYCM #### [address] [address] Eosinophils #/vol (Bld) 0.25 10*3/uL Normal 0.0-0.4 [facility] Comment on above: Performed By: #### L ACDS, TROPI, PRCAL, MYCM #### [address] [address]35 Eosinophils/100 WBC (Bld) 3 % Normal 1-4 [facility] Comment on above: Performed By: #### L ACDS, TROPI, PRCAL, MYCM #### [address] [address] Immature granulocytes #/vol (Bld) 5 % High 0 [facility] Comment on above: Performed By: #### L ACDS, TROPI, PRCAL, MYCM #### [address] [address] Lymphocytes #/vol (Bld) 2.32 10*3/uL Normal 1.0-4.8 [facility] Comment on above: Performed By: #### L ACDS, TROPI, PRCAL, MYCM #### [address] [address]005 Lymphocytes/100 WBC (Bld) 28 % Normal 24-44 [facility] Comment on above: Performed By: #### L ACDS, TROPI, PRCAL, MYCM #### [address] [address] Monocytes #/vol (Bld) 0.66 10*3/uL Normal 0.1-0.8 [facility] Comment on above: Performed By: #### L ACDS, TROPI, PRCAL, MYCM #### [facility] [employer] [address] [place] [address] 36268 Monocytes/100 WBC (Bld) 8 % High 1-7 [facility] Comment on above: Performed By: #### L ACDS, TROPI, PRCAL, MYCM #### [facility] [employer] [address] [place] [address] 23233 Morphology Interp Rehan (Bld) ANISOCYTOSIS PRESENT Normal [facility] Comment on above: Performed By: #### L ACDS, TROPI, PRCAL, MYCM #### [facility] [employer] [address] [place] [address] 31129 Neutrophil (Seg) 55 % Normal 36-66 [facility] Comment on above: Performed By: #### L ACDS, TROPI, PRCAL, MYCM #### [facility] [employer] [address] [place] [address] 55683 Erythrocyte distribution width Ratio (RBC) 14.6 % High 11.8-14.4 [facility] Comment on above: Performed By: #### L ACDS, TROPI, PRCAL, MYCM #### [facility] [employer] [address] [place] [address] 81857 Hematocrit Volume Fraction (Bld) 33.5 % Low 36.3-47.1 [facility] Comment on above: Performed By: #### L ACDS, TROPI, PRCAL, MYCM #### [facility] [employer] [address] [place] [address] 13704 Hemoglobin mass conc (Bld) 10.2 g/dL Low 11.9-15.1 [facility] Comment on above: Performed By: #### L ACDS, TROPI, PRCAL, MYCM #### [address] [address] MCH Entitic mass (RBC) 27.9 pg Normal 25.2-33.5 [facility] Comment on above: Performed By: #### L ACDS, TROPI, PRCAL, MYCM #### [address] [address] MCHC mass conc (RBC) 30.4 g/dL Normal 28.4-34.8 [facility] Comment on above: Performed By: #### L ACDS, TROPI, PRCAL, MYCM #### [address] [address]32 MCV Entitic volume (RBC) 91.5 fL Normal 82.6-102.9 [facility] Comment on above: Performed By: #### L ACDS, TROPI, PRCAL, MYCM #### [address] [address] NRBC Automated 0.0 per 100 WBC Normal 0.0 [facility] Comment on above: Performed By: #### L ACDS, TROPI, PRCAL, MYCM #### [address] [address]355 Platelet mean volume Entitic volume (Bld) 11.0 fL Normal 8.1-13.5 [facility] Comment on above: Performed By: #### L ACDS, TROPI, PRCAL, MYCM #### [facility] [employer] [address] [place] [address] 52268 Platelets #/vol (Bld) 211 10*3/uL Normal 138-453 [facility] Comment on above: Performed By: #### L ACDS, TROPI, PRCAL, MYCM #### [facility] [employer] [address] [place] [address] 05085 RBC #/vol (Bld) 3.66 10*6/uL Low 3.95-5.11 [facility] Comment on above: Performed By: #### L ACDS, TROPI, PRCAL, MYCM #### [address] [address]993 WBC #/vol (Bld) 8.3 10*3/uL Normal 3.5-11.3 [facility] Comment on above: Performed By: #### L ACDS, TROPI, PRCAL, MYCM #### [address] 7[address]88 Auto Diff Performed NOT REPORTED Normal [facility] Comment on above: Performed By: #### L ACDS, TROPI, PRCAL, MYCM #### [address] [address] Platelets #/vol (Bld) NOT REPORTED Normal [facility] Comment on above: Performed By: #### L ACDS, TROPI, PRCAL, MYCM #### [address] [address]33 RBC morphology finding Nom (Bld) NOT REPORTED Normal [facility] Comment on above: Performed By: #### L ACDS, TROPI, PRCAL, MYCM #### [address] [address]21 WBC Morphology NOT REPORTED Normal [facility] Comment on above: Performed By: #### L ACDS, TROPI, PRCAL, MYCM #### [address] [address] Comp Metabolic Pr/rfx MGon 1 10-20-2017 (cont.) Normal [facility] Comment on above: Result Comment: Aver age GFR for 30-39 years old: 107 mL/min/1.73sq m Chronic Kidney Disease: <60 mL/min/1.73sq m Kidney failure: <15 mL/min/1.73sq m eGFR calculated using average adult body mass. Additional eGFR calculator available at: http://www.Mattermark/multiple_crcl_2012.htm Performed By: #### L ACDS, TROPI, PRCAL, MYCM #### [facility] [employer] [address] [place] [address] 13137 Albumin mass conc 3.1 g/dL Low 3.5-5.2 [facility] Comment on above: Performed By: #### L ACDS, TROPI, PRCAL, MYCM #### [facility] [employer] [address] [place] [address] 02604 Albumin/Globulin mass ratio 0.9 {ratio} Low 1.0-2.5 [facility] Comment on above: Performed By: #### L ACDS, TROPI, PRCAL, MYCM #### [facility] [employer] [address] [place] [address] 22733 Alkaline Phos 83 U/L Normal 35-104 [facility] Comment on above: Performed By: #### L ACDS, TROPI, PRCAL, MYCM #### [facility] [employer] [address] [place] [address] 83534 ALT enzyme act/vol 17 U/L Normal 5-33 [facility] Comment on above: Performed By: #### L ACDS, TROPI, PRCAL, MYCM #### [facility] [employer] [address] [place] [address] 89373 Anion gap molar conc 11 mmol/L Normal 9-17 [facility] Comment on above: Performed By: #### L ACDS, TROPI, PRCAL, MYCM #### [facility] [employer] [address] [place] [address] 84554 AST enzyme act/vol 18 U/L Normal <32 [facility] Comment on above: Performed By: #### L ACDS, TROPI, PRCAL, MYCM #### [address] [address] Bilirubin Ql (U) 0.29 mg/dL Low 0.3-1.2 [facility] Comment on above: Performed By: #### L ACDS, TROPI, PRCAL, MYCM #### [address] [address] Calcium mass conc 9.0 mg/dL Normal 8.6-10.4 [facility] Comment on above: Performed By: #### L ACDS, TROPI, PRCAL, MYCM #### [facility] [employer] [address] [place] [address] 55664 Chloride molar conc 101 mmol/L Normal 98-107 [facility] Comment on above: Performed By: #### L ACDS, TROPI, PRCAL, MYCM #### [facility] [employer] [address] [place] [address] 03831 CO2 molar conc 27 mmol/L Normal 20-31 [facility] Comment on above: Performed By: #### L ACDS, TROPI, PRCAL, MYCM #### [facility] [employer] [address] [place] [address] 60012 Creatinine mass conc 0.97 mg/dL High 0.50-0.90 [facility] Comment on above: Performed By: #### L ACDS, TROPI, PRCAL, MYCM #### [facility] [employer] [address] [place] [address] 85012 GFR, Amer >60 Normal >60 [facility] Comment on above: Performed By: #### L ACDS, TROPI, PRCAL, MYCM #### [facility] [employer] [address] [place] [address] 29123 GFR,non Amer >60 Normal >60 [facility] Comment on above: Performed By: #### L ACDS, TROPI, PRCAL, MYCM #### [facility] [employer] [address] [place] [address] 52359 Glucose mass conc 105 mg/dL High 70-99 [facility] Comment on above: Performed By: #### L ACDS, TROPI, PRCAL, MYCM #### [facility] [employer] [address] [place] [address] 38287 Potassium molar conc 4.4 mmol/L Normal 3.7-5.3 [facility] Comment on above: Performed By: #### L ACDS, TROPI, PRCAL, MYCM #### [facility] [employer] [address] [place] [address] 40162 Protein mass conc 6.6 g/dL Normal 6.4-8.3 [facility] Comment on above: Performed By: #### L ACDS, TROPI, PRCAL, MYCM #### [facility] [employer] [address] [place] [address] 66908 Sodium molar conc 139 mmol/L Normal 135-144 [facility] Comment on above: Performed By: #### L ACDS, TROPI, PRCAL, MYCM #### [facility] [employer] [address] [place] [address] 89208 Urea nitrogen mass conc 15 mg/dL Normal 6-20 [facility] Comment on above: Performed By: #### L ACDS, TROPI, PRCAL, MYCM #### [facility] [employer] [address] [place] [address] 13696 BUN/CRE Ratio NOT REPORTED Normal 9-20 [facility] Comment on above: Performed By: #### L ACDS, TROPI, PRCAL, MYCM #### [facility] [address] [place] [address] Staging: NOT REPORTED Normal [facility] Comment on above: Performed By: #### L ACDS, TROPI, PRCAL, MYCM #### [facility] [address] [place] [address] Magnesiumon 08-20-2018 Magnesium mass conc 2.2 mg/dL Normal 1.6-2.6 [facility] Comment on above: Performed By: #### L ACDS, TROPI, PRCAL, MYCM #### [facility] [place] [address] Sedimentation Rateon 018 Sedimentation Rate 100 mm High 0-20 [facility] Comment on above: Performed By: #### L ACDS, TROPI, PRCAL, MYCM #### [facility] [place], [place] [id number] XR FOOT LEFT (MIN 3 VIEWS)on 08-20-2018 [...] Andrey Angelo MD 08/20/18 Final result Normal [facility] CBC with Diffon 08-19-2018 Abs. Basophil 0.00 k/uL Normal 0.0-0.2 [facility] Comment on above: Performed By: #### L ACDS, TROPI, PRCAL, MYCM #### [facility] [place] [address] Abs.Imm.Granulocyte 0.42 k/uL High 0.00-0.30 [facility] Comment on above: Performed By: #### L ACDS, TROPI, PRCAL, MYCM #### [address] [address] Abs.Neutrophil (Seg) 2.70 k/uL Normal 1.8-7.7 [facility] Comment on above: Performed By: #### L ACDS, TROPI, PRCAL, MYCM #### [address] [address] Basophils/100 WBC (Bld) 0 % Normal 0-2 [facility] Comment on above: Performed By: #### L ACDS, TROPI, PRCAL, MYCM #### [address] [address] Eosinophils #/vol (Bld) 0.30 10*3/uL Normal 0.0-0.4 [facility] Comment on above: Performed By: #### L ACDS, TROPI, PRCAL, MYCM #### [address] [address] Eosinophils/100 WBC (Bld) 5 % High 1-4 [facility] Comment on above: Performed By: #### L ACDS, TROPI, PRCAL, MYCM #### [address] [address] Immature granulocytes #/vol (Bld) 7 % High 0 [facility] Comment on above: Performed By: #### L ACDS, TROPI, PRCAL, MYCM #### [address] [address] Lymphocytes #/vol (Bld) 2.22 10*3/uL Normal 1.0-4.8 [facility] Comment on above: Performed By: #### L ACDS, TROPI, PRCAL, MYCM #### [address] [address] Lymphocytes/100 WBC (Bld) 37 % Normal 24-44 [facility] Comment on above: Performed By: #### L ACDS, TROPI, PRCAL, MYCM #### [address] [address] Monocytes #/vol (Bld) 0.36 10*3/uL Normal 0.1-0.8 [facility] Comment on above: Performed By: #### L ACDS, TROPI, PRCAL, MYCM #### [address] [address] Monocytes/100 WBC (Bld) 6 % Normal 1-7 [facility] Comment on above: Performed By: #### L ACDS, TROPI, PRCAL, MYCM #### [facility] [employer] [address] [place] [address] 30613 Morphology Interp Rehan (Bld) ANISOCYTOSIS PRESENT Normal [facility] Comment on above: Performed By: #### L ACDS, TROPI, PRCAL, MYCM #### [facility] [employer] [address] [place] [address] 89991 Neutrophil (Seg) 45 % Normal 36-66 [facility] Comment on above: Performed By: #### L ACDS, TROPI, PRCAL, MYCM #### [address] [address] Erythrocyte distribution width Ratio (RBC) 14.6 % High 11.8-14.4 [facility] Comment on above: Performed By: #### L ACDS, TROPI, PRCAL, MYCM #### [facility] [employer] [address] [place] [address] 89994 Hematocrit Volume Fraction (Bld) 34.4 % Low 36.3-47.1 [facility] Comment on above: Performed By: #### L ACDS, TROPI, PRCAL, MYCM #### [facility] [employer] [address] [place] [address] 76528 Hemoglobin mass conc (Bld) 10.4 g/dL Low 11.9-15.1 [facility] Comment on above: Performed By: #### L ACDS, TROPI, PRCAL, MYCM #### [facility] [employer] [address] [place] [address] 58643 MCH Entitic mass (RBC) 28.0 pg Normal 25.2-33.5 [facility] Comment on above: Performed By: #### L ACDS, TROPI, PRCAL, MYCM #### [facility] [employer] [address] [place] [address] 29540 MCHC mass conc (RBC) 30.2 g/dL Normal 28.4-34.8 [facility] Comment on above: Performed By: #### L ACDS, TROPI, PRCAL, MYCM #### [facility] [employer] [address] [place] [address] 43877 MCV Entitic volume (RBC) 92.7 fL Normal 82.6-102.9 [facility] Comment on above: Performed By: #### L ACDS, TROPI, PRCAL, MYCM #### [facility] [employer] [address] [place] [address]806 NRBC Automated 0.3 per 100 WBC High 0.0 [facility] Comment on above: Performed By: #### L ACDS, TROPI, PRCAL, MYCM #### [facility] [employer] [address] [place] [address] 82043 Platelet mean volume Entitic volume (Bld) 10.5 fL Normal 8.1-13.5 [facility] Comment on above: Performed By: #### L ACDS, TROPI, PRCAL, MYCM #### [facility] [employer] [address] [place] [address] 55075 Platelets #/vol (Bld) 168 10*3/uL Normal 138-453 [facility] Comment on above: Performed By: #### L ACDS, TROPI, PRCAL, MYCM #### [address] [address] RBC #/vol (Bld) 3.71 10*6/uL Low 3.95-5.11 [facility] Comment on above: Performed By: #### L ACDS, TROPI, PRCAL, MYCM #### [address] [address] WBC #/vol (Bld) 6.0 10*3/uL Normal 3.5-11.3 [facility] Comment on above: Performed By: #### L ACDS, TROPI, PRCAL, MYCM #### [facility] [employer] [address] [place] [address] 19025 Auto Diff Performed NOT REPORTED Normal [facility] Comment on above: Performed By: #### L ACDS, TROPI, PRCAL, MYCM #### [facility] [employer] [address] [place] [address] 04946 Platelets #/vol (Bld) NOT REPORTED Normal [facility] Comment on above: Performed By: #### L ACDS, TROPI, PRCAL, MYCM #### [facility] [employer] [address] [place] [address] 32716 RBC morphology finding Nom (Bld) NOT REPORTED Normal [facility] Comment on above: Performed By: #### L ACDS, TROPI, PRCAL, MYCM #### [facility] [employer] [address] [place] [address] 33101 WBC Morphology NOT REPORTED Normal [facility] Comment on above: Performed By: #### L ACDS, TROPI, PRCAL, MYCM #### [facility] [employer] [address] [place] [address] 42000 Comp Metabolic Pr/rfx MGon 1 10-19-2017 (cont.) Normal [facility] Comment on above: Result Comment: Aver age GFR for 30-39 years old: 107 mL/min/1.73sq m Chronic Kidney Disease: <60 mL/min/1.73sq m Kidney failure: <15 mL/min/1.73sq m eGFR calculated using average adult body mass. Additional eGFR calculator available at: http://www.[employer]/multiple_crcl_2012.htm Performed By: #### L ACDS, TROPI, PRCAL, MYCM #### [facility] [employer] [address] [place] [address] 56801 Albumin mass conc 2.7 g/dL Low 3.5-5.2 [facility] Comment on above: Performed By: #### L ACDS, TROPI, PRCAL, MYCM #### [facility] [address] [place] [address] 70153 Albumin/Globulin mass ratio 0.8 {ratio} Low 1.0-2.5 [facility] Comment on above: Performed By: #### L ACDS, TROPI, PRCAL, MYCM #### [facility] [employer] [address] [place] [address] 92129 Alkaline Phos 78 U/L Normal 35-104 [facility] Comment on above: Performed By: #### L ACDS, TROPI, PRCAL, MYCM #### [facility] [employer] [address] [place] [address] 25969 ALT enzyme act/vol 16 U/L Normal 5-33 [facility] Comment on above: Performed By: #### L ACDS, TROPI, PRCAL, MYCM #### [facility] [employer] [address] [place] [address] 99144 Anion gap molar conc 10 mmol/L Normal 9-17 [facility] Comment on above: Performed By: #### L ACDS, TROPI, PRCAL, MYCM #### [facility] [employer] [address] [place] [address] 48343 AST enzyme act/vol 16 U/L Normal <32 [facility] Comment on above: Performed By: #### L ACDS, TROPI, PRCAL, MYCM #### [address] [address] Bilirubin Ql (U) 0.21 mg/dL Low 0.3-1.2 [facility] Comment on above: Performed By: #### L ACDS, TROPI, PRCAL, MYCM #### [facility] [employer] [address] [place] [address] 32200 Calcium mass conc 8.5 mg/dL Low 8.6-10.4 [facility] Comment on above: Performed By: #### L ACDS, TROPI, PRCAL, MYCM #### [address] [address] Chloride molar conc 103 mmol/L Normal 98-107 [facility] Comment on above: Performed By: #### L ACDS, TROPI, PRCAL, MYCM #### [facility] [employer] [address] [place] [address] 81591 CO2 molar conc 24 mmol/L Normal 20-31 [facility] Comment on above: Performed By: #### L ACDS, TROPI, PRCAL, MYCM #### [address] [address] Creatinine mass conc 0.88 mg/dL Normal 0.50-0.90 [facility] Comment on above: Performed By: #### L ACDS, TROPI, PRCAL, MYCM #### [facility] [employer] [address] [place] [address] 66236 GFR, Amer >60 Normal >60 [facility] Comment on above: Performed By: #### L ACDS, TROPI, PRCAL, MYCM #### [address] [address] GFR,non Amer >60 Normal >60 [facility] Comment on above: Performed By: #### L ACDS, TROPI, PRCAL, MYCM #### [facility] [employer] [address] [place] [address] 79116 Glucose mass conc 104 mg/dL High 70-99 [facility] Comment on above: Performed By: #### L ACDS, TROPI, PRCAL, MYCM #### [facility] [address] [place] [address] 75707 Potassium molar conc 4.0 mmol/L Normal 3.7-5.3 [facility] Comment on above: Performed By: #### L ACDS, TROPI, PRCAL, MYCM #### [facility] [employer] [address] [place] [address] 92430 Protein mass conc 6.3 g/dL Low 6.4-8.3 [facility] Comment on above: Performed By: #### L ACDS, TROPI, PRCAL, MYCM #### [facility] [employer] [address] [place] [address] 02058 Sodium molar conc 137 mmol/L Normal 135-144 [facility] Comment on above: Performed By: #### L ACDS, TROPI, PRCAL, MYCM #### [facility] [employer] [address] [place] [address] 86402 Urea nitrogen mass conc 16 mg/dL Normal 6-20 [facility] Comment on above: Performed By: #### L ACDS, TROPI, PRCAL, MYCM #### [facility] [employer] [address] [place] [address] 88410 BUN/CRE Ratio NOT REPORTED Normal 9-20 [facility] Comment on above: Performed By: #### L ACDS, TROPI, PRCAL, MYCM #### [facility] [address] [place] [address] 72707 Staging: NOT REPORTED Normal [facility] Comment on above: Performed By: #### L ACDS, TROPI, PRCAL, MYCM #### [facility] [place], [place] [id number] Cult, Bloodon 08-19-2018 Cult, Blood Specimen Description [...] Trimethoprim/Sulfa <=10 SUSCEPTIBLE Vancomycin 1 SUSCEPTIBLE Normal [facility] Comment on above: Performed By: #### L ACDS, TROPI, PRCAL, MYCM #### [employer] [address] [place] [address] [phone] MRI CERVICAL SPINE W WO CONT RASTon [...] Bo Rodrigues MD 08/19/18 Final result Normal [facility] MRI LUMBAR SPINE W WO CONTRA [...] Bo Rodrigues MD 08/19/18 Final result Normal [facility] MRI THORACIC SPINE W WO CONT [...] Bo Rodrigues MD 08/19/18 Final result Normal [facility] Magnesiumon 08-19-2018 Magnesium mass conc 2.3 mg/dL Normal 1.6-2.6 [facility] Comment on above: Performed By: #### L ACDS, TROPI, PRCAL, MYCM #### [facility] [employer] [address] [place] [address] Procalcitoninon 08-19-2018 Protein mass conc 0.57 ng/mL High <0.09 [facility] Comment on above: Result Comment: Suspected Sepsis: [...] entered into the Change in Procalcitonin Calculator (www.rdgetk-cyr-etgtejlmvt.com) to determine the patient's Mortality Risk Prognosis Performed By: #### L ACDS, TROPI, PRCAL, MYCM #### [address] [address] CBC with Diffon 08-18-2018 Abs. Basophil <0.03 Normal 0.00-0.20 [facility] Comment on above: Performed By: #### L ACDS, TROPI, PRCAL, MYCM #### [address] [address] Abs.Imm.Granulocyte 0.28 k/uL Normal 0.00-0.30 [facility] Comment on above: Performed By: #### L ACDS, TROPI, PRCAL, MYCM #### [address] [address] Abs.Neutrophil (Seg) 3.23 k/uL Normal 1.50-8.10 [facility] Comment on above: Performed By: #### L ACDS, TROPI, PRCAL, MYCM #### [address] [address] Basophils/100 WBC (Bld) 0 % Normal 0-2 [facility] Comment on above: Performed By: #### L ACDS, TROPI, PRCAL, MYCM #### [address] [address] Eosinophils #/vol (Bld) 0.15 10*3/uL Normal 0.00-0.44 [facility] Comment on above: Performed By: #### L ACDS, TROPI, PRCAL, MYCM #### [address] [address] Eosinophils/100 WBC (Bld) 3 % Normal 1-4 [facility] Comment on above: Performed By: #### L ACDS, TROPI, PRCAL, MYCM #### [facility] [employer] [address] [place] [address] 66921 Erythrocyte distribution width Ratio (RBC) 14.7 % High 11.8-14.4 [facility] Comment on above: Performed By: #### L ACDS, TROPI, PRCAL, MYCM #### [facility] [employer] [address] [place] [address] 65719 Hematocrit Volume Fraction (Bld) 32.7 % Low 36.3-47.1 [facility] Comment on above: Performed By: #### L ACDS, TROPI, PRCAL, MYCM #### [facility] [employer] [address] [place] [address] 78660 Hemoglobin mass conc (Bld) 10.1 g/dL Low 11.9-15.1 [facility] Comment on above: Performed By: #### L ACDS, TROPI, PRCAL, MYCM #### [address] [address] Immature granulocytes #/vol (Bld) 5 % High 0 [facility] Comment on above: Performed By: #### L ACDS, TROPI, PRCAL, MYCM #### [facility] [employer] [address] [place] [address] 84343 Lymphocytes #/vol (Bld) 1.58 10*3/uL Normal 1.10-3.70 [facility] Comment on above: Performed By: #### L ACDS, TROPI, PRCAL, MYCM #### [facility] [employer] [address] [place] [address] 47620 Lymphocytes/100 WBC (Bld) 28 % Normal 24-43 [facility] Comment on above: Performed By: #### L ACDS, TROPI, PRCAL, MYCM #### [address] [address] MCH Entitic mass (RBC) 28.2 pg Normal 25.2-33.5 [facility] Comment on above: Performed By: #### L ACDS, TROPI, PRCAL, MYCM #### [address] [address] MCHC mass conc (RBC) 30.9 g/dL Normal 28.4-34.8 [facility] Comment on above: Performed By: #### L ACDS, TROPI, PRCAL, MYCM #### [address] [address] MCV Entitic volume (RBC) 91.3 fL Normal 82.6-102.9 [facility] Comment on above: Performed By: #### L ACDS, TROPI, PRCAL, MYCM #### [address] [address] Monocytes #/vol (Bld) 0.47 10*3/uL Normal 0.10-1.20 [facility] Comment on above: Performed By: #### L ACDS, TROPI, PRCAL, MYCM #### [address] [address] Monocytes/100 WBC (Bld) 8 % Normal 3-12 [facility] Comment on above: Performed By: #### L ACDS, TROPI, PRCAL, MYCM #### [address] [address] Neutrophil (Seg) 56 % Normal 36-65 [facility] Comment on above: Performed By: #### L ACDS, TROPI, PRCAL, MYCM #### [address] [address] NRBC Automated 0.0 per 100 WBC Normal 0.0 [facility] Comment on above: Performed By: #### L ACDS, TROPI, PRCAL, MYCM #### [address] [address] Platelet mean volume Entitic volume (Bld) 11.4 fL Normal 8.1-13.5 [facility] Comment on above: Performed By: #### L ACDS, TROPI, PRCAL, MYCM #### [address] [address] Platelets #/vol (Bld) 153 10*3/uL Normal 138-453 [facility] Comment on above: Performed By: #### L ACDS, TROPI, PRCAL, MYCM #### [address] [address] RBC #/vol (Bld) 3.58 10*6/uL Low 3.95-5.11 [facility] Comment on above: Performed By: #### L ACDS, TROPI, PRCAL, MYCM #### [address] [address] RBC morphology finding Nom (Bld) ANISOCYTOSIS PRESENT Normal [facility] Comment on above: Performed By: #### L ACDS, TROPI, PRCAL, MYCM #### [address] [address] WBC #/vol (Bld) 5.7 10*3/uL Normal 3.5-11.3 [facility] Comment on above: Performed By: #### L ACDS, TROPI, PRCAL, MYCM #### [address] [address] Auto Diff Performed NOT REPORTED Normal [facility] Comment on above: Performed By: #### L ACDS, TROPI, PRCAL, MYCM #### [facility] [employer] [address] [place] [address] 87382 Platelets #/vol (Bld) NOT REPORTED Normal [facility] Comment on above: Performed By: #### L ACDS, TROPI, PRCAL, MYCM #### [facility] [employer] [address] [place] [address] 98483 WBC Morphology NOT REPORTED Normal [facility] Comment on above: Performed By: #### L ACDS, TROPI, PRCAL, MYCM #### [facility] [employer] [address] [place] [address] 75668 Comp Metabolic Pr/rfx MGon 1 10-18-2017 (cont.) Normal [facility] Comment on above: Result Comment: Aver age GFR for 30-39 years old: 107 mL/min/1.73sq m Chronic Kidney Disease: <60 mL/min/1.73sq m Kidney failure: <15 mL/min/1.73sq m eGFR calculated using average adult body mass. Additional eGFR calculator available at: http://www.[employer]/multiple_crcl_2012.htm Performed By: #### L ACDS, TROPI, PRCAL, MYCM #### [facility] [employer] [address] [place] [address] 81150 Albumin mass conc 2.7 g/dL Low 3.5-5.2 [facility] Comment on above: Performed By: #### L ACDS, TROPI, PRCAL, MYCM #### [facility] [employer] [address] [place] [address] 51647 Albumin/Globulin mass ratio 0.8 {ratio} Low 1.0-2.5 [facility] Comment on above: Performed By: #### L ACDS, TROPI, PRCAL, MYCM #### [facility] [employer] [address] [place] [address] 96368 Alkaline Phos 82 U/L Normal 35-104 [facility] Comment on above: Performed By: #### L ACDS, TROPI, PRCAL, MYCM #### [facility] [employer] [address] [place] [address] 55305 ALT enzyme act/vol 19 U/L Normal 5-33 [facility] Comment on above: Performed By: #### L ACDS, TROPI, PRCAL, MYCM #### [facility] [employer] [address] [place] [address] 40104 Anion gap molar conc 8 mmol/L Low 9-17 [facility] Comment on above: Performed By: #### L ACDS, TROPI, PRCAL, MYCM #### [facility] [employer] [address] [place] [address] 99598 AST enzyme act/vol 17 U/L Normal <32 [facility] Comment on above: Performed By: #### L ACDS, TROPI, PRCAL, MYCM #### [facility] [employer] [address] [place] [address] 25779 Bilirubin Ql (U) 0.24 mg/dL Low 0.3-1.2 [facility] Comment on above: Performed By: #### L ACDS, TROPI, PRCAL, MYCM #### [facility] [employer] [address] [place] [address] 66352 Calcium mass conc 8.2 mg/dL Low 8.6-10.4 [facility] Comment on above: Performed By: #### L ACDS, TROPI, PRCAL, MYCM #### [facility] [employer] [address] [place] [address] 74819 Chloride molar conc 103 mmol/L Normal 98-107 [facility] Comment on above: Performed By: #### L ACDS, TROPI, PRCAL, MYCM #### [facility] [employer] [address] [place] [address] 90486 CO2 molar conc 25 mmol/L Normal 20-31 [facility] Comment on above: Performed By: #### L ACDS, TROPI, PRCAL, MYCM #### [facility] [employer] [address] [place] [address] 82980 Creatinine mass conc 0.94 mg/dL High 0.50-0.90 [facility] Comment on above: Performed By: #### L ACDS, TROPI, PRCAL, MYCM #### [facility] [employer] [address] [place] [address] 18661 GFR, Amer >60 Normal >60 [facility] Comment on above: Performed By: #### L ACDS, TROPI, PRCAL, MYCM #### [facility] [employer] [address] [place] [address] 60021 GFR,non Amer >60 Normal >60 [facility] Comment on above: Performed By: #### L ACDS, TROPI, PRCAL, MYCM #### [facility] [employer] [address] [place] [address] 25125 Glucose mass conc 107 mg/dL High 70-99 [facility] Comment on above: Performed By: #### L ACDS, TROPI, PRCAL, MYCM #### [facility] [employer] [address] [place] [address] 96976 Potassium molar conc 4.1 mmol/L Normal 3.7-5.3 [facility] Comment on above: Performed By: #### L ACDS, TROPI, PRCAL, MYCM #### [facility] [employer] [address] [place] [address] 43488 Protein mass conc 6.2 g/dL Low 6.4-8.3 [facility] Comment on above: Performed By: #### L ACDS, TROPI, PRCAL, MYCM #### [facility] [employer] [address] [place] [address] 86540 Sodium molar conc 136 mmol/L Normal 135-144 [facility] Comment on above: Performed By: #### L ACDS, TROPI, PRCAL, MYCM #### [facility] [address] [place] [address] 32578 Urea nitrogen mass conc 14 mg/dL Normal -20 [facility] Comment on above: Performed By: #### L ACDS, TROPI, PRCAL, MYCM #### [facility] [address] [place] [address] 08624 BUN/CRE Ratio NOT REPORTED Normal - [facility] Comment on above: Performed By: #### L ACDS, TROPI, PRCAL, MYCM #### [facility] [address] [place] [address] 73239 Staging: NOT REPORTED Normal [facility] Comment on above: Performed By: #### L ACDS, TROPI, PRCAL, MYCM #### [facility] [address] [place] [address] 88092 Magnesiumon 08-18-2018 Magnesium mass conc 2.3 mg/dL Normal 1.6-2.6 [facility] Comment on above: Performed By: #### L ACDS, TROPI, PRCAL, MYCM #### [facility] [address] [place] [address] 29824 Vancomycin Troughon 08-18-20 18 Vancomycin Trough 14.7 ug/mL Normal 10.0-20.0 [facility] Comment on above: Result Comment: High er trough serum vancomycin concentrations of 15-20 ug/mL are recommended for complicated infections such as bacteremia, endocarditis, osteomyelitis, meningitis, and hospital acquired pneumonia. Performed By: #### L ACDS, TROPI, PRCAL, MYCM #### [employer] [address] [place] [address] 95020 Date last dose, NOT REPORTED Normal [facility] Comment on above: Performed By: #### L ACDS, TROPI, PRCAL, MYCM #### [facility] [address] [place] [address] 82620 Dose amount, NOT REPORTED Normal [facility] Comment on above: Performed By: #### L ACDS, TROPI, PRCAL, MYCM #### [facility] [address] [place] [address] 02591 Time last dose, NOT REPORTED Normal [facility] Comment on above: Performed By: #### L ACDS, TROPI, PRCAL, MYCM #### [facility] [address] [place] [address] 22260 C-Reactive Proteinon 018 CRP mass conc 188.1 mg/L High 0.0-5.0 [facility] Comment on above: Performed By: #### L ACDS, TROPI, PRCAL, MYCM #### [facility] [employer] [address] [place] [address] 20700 CBC with Diffon 08-17-2018 Abs. Basophil 0.00 k/uL Normal 0.0-0.2 [facility] Comment on above: Performed By: #### L ACDS, TROPI, PRCAL, MYCM #### [facility] [address] [place] [address] 15986 Abs.Imm.Granulocyte 0.13 k/uL Normal 0.00-0.30 [facility] Comment on above: Performed By: #### L ACDS, TROPI, PRCAL, MYCM #### [facility] [address] [place] [address] 61873 Abs.Neutrophil (Seg) 4.35 k/uL Normal 1.8-7.7 [facility] Comment on above: Performed By: #### L ACDS, TROPI, PRCAL, MYCM #### [facility] [employer] [address] [place] [address] 17833 Basophils/100 WBC (Bld) 0 % Normal 0-2 [facility] Comment on above: Performed By: #### L ACDS, TROPI, PRCAL, MYCM #### [address] [address] Eosinophils #/vol (Bld) 0.06 10*3/uL Normal 0.0-0.4 [facility] Comment on above: Performed By: #### L ACDS, TROPI, PRCAL, MYCM #### [address] [address] Eosinophils/100 WBC (Bld) 1 % Normal 1-4 [facility] Comment on above: Performed By: #### L ACDS, TROPI, PRCAL, MYCM #### [address] [address] Immature granulocytes #/vol (Bld) 2 % High 0 [facility] Comment on above: Performed By: #### L ACDS, TROPI, PRCAL, MYCM #### [address] [address] Lymphocytes #/vol (Bld) 1.32 10*3/uL Normal 1.0-4.8 [facility] Comment on above: Performed By: #### L ACDS, TROPI, PRCAL, MYCM #### [address] 14215 Lymphocytes/100 WBC (Bld) 21 % Low 24-44 [facility] Comment on above: Performed By: #### L ACDS, TROPI, PRCAL, MYCM #### [address] [address] Monocytes #/vol (Bld) 0.44 10*3/uL Normal 0.1-0.8 [facility] Comment on above: Performed By: #### L ACDS, TROPI, PRCAL, MYCM #### [address] [place] [address] Monocytes/100 WBC (Bld) 7 % Normal 1-7 [facility] Comment on above: Performed By: #### L ACDS, TROPI, PRCAL, MYCM #### [facility] [address] [place] [address] 11546 Morphology Interp Rehan (Bld) ANISOCYTOSIS PRESENT Normal [facility] Comment on above: Result Comment: INCR EASED BANDS PRESENT 1+ TEARDROPS Performed By: #### L ACDS, TROPI, PRCAL, MYCM #### [address] [address] Neutrophil (Seg) 69 % High 36-66 [facility] Comment on above: Performed By: #### L ACDS, TROPI, PRCAL, MYCM #### [address] [address] Erythrocyte distribution width Ratio (RBC) 14.8 % High 11.8-14.4 [facility] Comment on above: Performed By: #### L ACDS, TROPI, PRCAL, MYCM #### [facility] [address] [place] [address] 58612 Hematocrit Volume Fraction (Bld) 33.3 % Low 36.3-47.1 [facility] Comment on above: Performed By: #### L ACDS, TROPI, PRCAL, MYCM #### [facility] [address] [place] [address] 12829 Hemoglobin mass conc (Bld) 10.2 g/dL Low 11.9-15.1 [facility] Comment on above: Performed By: #### L ACDS, TROPI, PRCAL, MYCM #### [facility] [address] [place] [address] 41401 MCH Entitic mass (RBC) 28.3 pg Normal 25.2-33.5 [facility] Comment on above: Performed By: #### L ACDS, TROPI, PRCAL, MYCM #### [address] 86444 MCHC mass conc (RBC) 30.6 g/dL Normal 28.4-34.8 [facility] Comment on above: Performed By: #### L ACDS, TROPI, PRCAL, MYCM #### [address] 63936 MCV Entitic volume (RBC) 92.2 fL Normal 82.6-102.9 [facility] Comment on above: Performed By: #### L ACDS, TROPI, PRCAL, MYCM #### [address] [address]40[address] NRBC Automated 0.0 per 100 WBC Normal 0.0 [facility] Comment on above: Performed By: #### L ACDS, TROPI, PRCAL, MYCM #### [address] 967[address] Platelet mean volume Entitic volume (Bld) 11.5 fL Normal 8.1-13.5 [facility] Comment on above: Performed By: #### L ACDS, TROPI, PRCAL, MYCM #### [address] [address]48 Platelets #/vol (Bld) 149 10*3/uL Normal 138-453 [facility] Comment on above: Performed By: #### L ACDS, TROPI, PRCAL, MYCM #### [address] [address] RBC #/vol (Bld) 3.61 10*6/uL Low 3.95-5.11 [facility] Comment on above: Performed By: #### L ACDS, TROPI, PRCAL, MYCM #### [address] [address] WBC #/vol (Bld) 6.3 10*3/uL Normal 3.5-11.3 [facility] Comment on above: Performed By: #### L ACDS, TROPI, PRCAL, MYCM #### [address] 71887 Auto Diff Performed NOT REPORTED Normal [facility] Comment on above: Performed By: #### L ACDS, TROPI, PRCAL, MYCM #### [address] [address]88[address] Platelets #/vol (Bld) NOT REPORTED Normal [facility] Comment on above: Performed By: #### L ACDS, TROPI, PRCAL, MYCM #### [address] 776[address] RBC morphology finding Nom (Bld) NOT REPORTED Normal [facility] Comment on above: Performed By: #### L ACDS, TROPI, PRCAL, MYCM #### [address] [address]651 WBC Morphology NOT REPORTED Normal [facility] Comment on above: Performed By: #### L ACDS, TROPI, PRCAL, MYCM #### [address] [address] Comp Metabolic Pr/rfx MGon 1 10-17-2017 (cont.) Normal [facility] Comment on above: Result Comment: Aver age GFR for 30-39 years old: 107 mL/min/1.73sq m Chronic Kidney Disease: <60 mL/min/1.73sq m Kidney failure: <15 mL/min/1.73sq m eGFR calculated using average adult body mass. Additional eGFR calculator available at: http://www.[employer].SportID/multiple_crcl_2011.htm Performed By: #### L ACDS, TROPI, PRCAL, MYCM #### [facility] [employer] [address] [place] [address] 13388 Albumin mass conc 2.4 g/dL Low 3.5-5.2 [facility] Comment on above: Performed By: #### L ACDS, TROPI, PRCAL, MYCM #### [facility] [address] [place] [address] 18893 Albumin/Globulin mass ratio 0.7 {ratio} Low 1.0-2.5 [facility] Comment on above: Performed By: #### L ACDS, TROPI, PRCAL, MYCM #### [facility] [address] [place] [address] 75953 Alkaline Phos 76 U/L Normal 35-104 [facility] Comment on above: Performed By: #### L ACDS, TROPI, PRCAL, MYCM #### [facility] [address] [place] [address] 85481 ALT enzyme act/vol 25 U/L Normal 5-33 [facility] Comment on above: Performed By: #### L ACDS, TROPI, PRCAL, MYCM #### [facility] [address] [place] [address] 27788 Anion gap molar conc 8 mmol/L Low 9-17 [facility] Comment on above: Performed By: #### L ACDS, TROPI, PRCAL, MYCM #### [facility] [address] [place] [address] 47172 AST enzyme act/vol 26 U/L Normal <32 [facility] Comment on above: Performed By: #### L ACDS, TROPI, PRCAL, MYCM #### [facility] [address] [place] [address] 57227 Bilirubin Ql (U) 0.34 mg/dL Normal 0.3-1.2 [facility] Comment on above: Performed By: #### L ACDS, TROPI, PRCAL, MYCM #### [facility] [address] [place] [address] 08925 Calcium mass conc 7.8 mg/dL Low 8.6-10.4 [facility] Comment on above: Performed By: #### L ACDS, TROPI, PRCAL, MYCM #### [facility] [address] [place] [address] 83728 Chloride molar conc 99 mmol/L Normal 98-107 [facility] Comment on above: Performed By: #### L ACDS, TROPI, PRCAL, MYCM #### [facility] [address] [place] [address] 07264 CO2 molar conc 23 mmol/L Normal 20-31 [facility] Comment on above: Performed By: #### L ACDS, TROPI, PRCAL, MYCM #### [facility] [address] [place] [address] 45034 Creatinine mass conc 1.04 mg/dL High 0.50-0.90 [facility] Comment on above: Performed By: #### L ACDS, TROPI, PRCAL, MYCM #### [facility] [address] [place] [address] 41479 GFR, Amer >60 Normal >60 [facility] Comment on above: Performed By: #### L ACDS, TROPI, PRCAL, MYCM #### [facility] [address] [place] [address] 73792 GFR,non Amer 59 mL/min Low >60 [facility] Comment on above: Performed By: #### L ACDS, TROPI, PRCAL, MYCM #### [facility] [address] [place] [address] 68244 Glucose mass conc 109 mg/dL High 70-99 [facility] Comment on above: Performed By: #### L ACDS, TROPI, PRCAL, MYCM #### [facility] [address] [place] [address] 01600 Potassium molar conc 3.8 mmol/L Normal 3.7-5.3 [facility] Comment on above: Performed By: #### L ACDS, TROPI, PRCAL, MYCM #### [facility] [address] [place] [address] 35813 Protein mass conc 5.8 g/dL Low 6.4-8.3 [facility] Comment on above: Performed By: #### L ACDS, TROPI, PRCAL, MYCM #### [facility] [address] [place] [address] 28349 Sodium molar conc 130 mmol/L Low 135-144 [facility] Comment on above: Performed By: #### L ACDS, TROPI, PRCAL, MYCM #### [facility] [address] [place] [address] 61698 Urea nitrogen mass conc 15 mg/dL Normal -20 [facility] Comment on above: Performed By: #### L ACDS, TROPI, PRCAL, MYCM #### [facility] [address] [place] [address] 19501 BUN/CRE Ratio NOT REPORTED Normal - [facility] Comment on above: Performed By: #### L ACDS, TROPI, PRCAL, MYCM #### [facility] [address] [place] [address] 48693 Staging: NOT REPORTED Normal [facility] Comment on above: Performed By: #### L ACDS, TROPI, PRCAL, MYCM #### [facility] [address] [place] [address] 80212 Magnesiumon 08-17-2018 Magnesium mass conc 2.2 mg/dL Normal 1.6-2.6 [facility] Comment on above: Performed By: #### L ACDS, TROPI, PRCAL, MYCM #### [employer] [address] [place] [address] 27533 Procalcitoninon 08-17-2018 Protein mass conc 1.48 ng/mL High <0.09 [facility] Comment on above: Result Comment: Suspected Sepsis: [...] entered into the Change in Procalcitonin Calculator ([email or web address]-lyu-yhglkrsucl.SportID) to determine the patient's Mortality Risk Prognosis Performed By: #### L ACDS, TROPI, PRCAL, MYCM #### [employer] [address] [place] [address] 49923 Sedimentation Rateon 018 Sedimentation Rate 97 mm High 0-20 [facility] Comment on above: Performed By: #### L ACDS, TROPI, PRCAL, MYCM #### [employer] [address] [place] [address] 37127 CBC with Diffon 08-16-2018 Abs. Basophil 0.00 k/uL Normal 0.00-0.20 [facility] Comment on above: Performed By: #### L ACDS, TROPI, PRCAL, MYCM #### [employer] [address] [place] [address] 08346 Abs.Imm.Granulocyte 0.11 k/uL Normal 0.00-0.30 [facility] Comment on above: Performed By: #### L ACDS, TROPI, PRCAL, MYCM #### [address] [address] Abs.Neutrophil (Seg) 4.60 k/uL Normal 1.50-8.10 [facility] Comment on above: Performed By: #### L ACDS, TROPI, PRCAL, MYCM #### [address] [address] Basophils/100 WBC (Bld) 0 % Normal 0-2 [facility] Comment on above: Performed By: #### L ACDS, TROPI, PRCAL, MYCM #### [address] [address] Eosinophils #/vol (Bld) 0.00 10*3/uL Normal 0.00-0.44 [facility] Comment on above: Performed By: #### L ACDS, TROPI, PRCAL, MYCM #### [address] [address] Eosinophils/100 WBC (Bld) 0 % Low 1-4 [facility] Comment on above: Performed By: #### L ACDS, TROPI, PRCAL, MYCM #### [address] [address] Immature granulocytes #/vol (Bld) 2 % High 0 [facility] Comment on above: Performed By: #### L ACDS, TROPI, PRCAL, MYCM #### [address] [address] Lymphocytes #/vol (Bld) 0.67 10*3/uL Low 1.10-3.70 [facility] Comment on above: Performed By: #### L ACDS, TROPI, PRCAL, MYCM #### [address] [address] Lymphocytes/100 WBC (Bld) 12 % Low 24-43 [facility] Comment on above: Performed By: #### L ACDS, TROPI, PRCAL, MYCM #### [address] [address] Monocytes #/vol (Bld) 0.22 10*3/uL Normal 0.10-1.20 [facility] Comment on above: Performed By: #### L ACDS, TROPI, PRCAL, MYCM #### [facility] [employer] [address] [place] [address] 48725 Monocytes/100 WBC (Bld) 4 % Normal 3-12 [facility] Comment on above: Performed By: #### L ACDS, TROPI, PRCAL, MYCM #### [address] [address] Morphology Interp Rehan (Bld) ANISOCYTOSIS PRESENT Normal [facility] Comment on above: Result Comment: INCR EASED BANDS PRESENT 1+ TEARDROPS Performed By: #### L ACDS, TROPI, PRCAL, MYCM #### [facility] [employer] [address] [place] [address] 00864 Neutrophil (Seg) 82 % High 36-65 [facility] Comment on above: Performed By: #### L ACDS, TROPI, PRCAL, MYCM #### [facility] [address] [place] [address] 71270 Erythrocyte distribution width Ratio (RBC) 15.1 % High 11.8-14.4 [facility] Comment on above: Performed By: #### L ACDS, TROPI, PRCAL, MYCM #### [facility] [address] [place] [address] 82082 Hematocrit Volume Fraction (Bld) 34.1 % Low 36.3-47.1 [facility] Comment on above: Performed By: #### L ACDS, TROPI, PRCAL, MYCM #### [address] [address]67 Hemoglobin mass conc (Bld) 10.0 g/dL Low 11.9-15.1 [facility] Comment on above: Performed By: #### L ACDS, TROPI, PRCAL, MYCM #### [address] [address] MCH Entitic mass (RBC) 28.7 pg Normal 25.2-33.5 [facility] Comment on above: Performed By: #### L ACDS, TROPI, PRCAL, MYCM #### [address] [address]92 MCHC mass conc (RBC) 29.3 g/dL Normal 28.4-34.8 [facility] Comment on above: Performed By: #### L ACDS, TROPI, PRCAL, MYCM #### [address] [address] MCV Entitic volume (RBC) 98.0 fL Normal 82.6-102.9 [facility] Comment on above: Performed By: #### L ACDS, TROPI, PRCAL, MYCM #### [address] [address] NRBC Automated 0.0 per 100 WBC Normal 0.0 [facility] Comment on above: Performed By: #### L ACDS, TROPI, PRCAL, MYCM #### [address] [address] Platelet mean volume Entitic volume (Bld) 11.1 fL Normal 8.1-13.5 [facility] Comment on above: Performed By: #### L ACDS, TROPI, PRCAL, MYCM #### [address] [address] Platelets #/vol (Bld) 119 10*3/uL Low 138-453 [facility] Comment on above: Performed By: #### L ACDS, TROPI, PRCAL, MYCM #### [address] [address] RBC #/vol (Bld) 3.48 10*6/uL Low 3.95-5.11 [facility] Comment on above: Performed By: #### L ACDS, TROPI, PRCAL, MYCM #### [address] [address] WBC #/vol (Bld) 5.6 10*3/uL Normal 3.5-11.3 [facility] Comment on above: Performed By: #### L ACDS, TROPI, PRCAL, MYCM #### [facility] [employer] [address] [place] [address] 88604 Auto Diff Performed NOT REPORTED Normal [facility] Comment on above: Performed By: #### L ACDS, TROPI, PRCAL, MYCM #### [address] [address] Platelets #/vol (Bld) NOT REPORTED Normal [facility] Comment on above: Performed By: #### L ACDS, TROPI, PRCAL, MYCM #### [facility] [address] [place] [address] 24090 RBC morphology finding Nom (Bld) NOT REPORTED Normal [facility] Comment on above: Performed By: #### L ACDS, TROPI, PRCAL, MYCM #### [facility] [employer] [address] [place] [address] 65153 WBC Morphology NOT REPORTED Normal [facility] Comment on above: Performed By: #### L ACDS, TROPI, PRCAL, MYCM #### [facility] [address] [place] [address] HEAD WO CONTRASTon 2017 CT HEAD [...] Erica Angeles MD 08/16/18 Final result Normal [facility] Calcium, Ionicon 08-16-2018 Calcium mass conc 0.99 mmol/L Low 1.13-1.33 [facility] Comment on above: Performed By: #### L ACDS, TROPI, PRCAL, MYCM #### [facility] [place] [address] Comp Metabolic Pr/rfx MGon 1 10-16-2017 (cont.) Normal [facility] Comment on above: Result Comment: Aver age GFR for 30-39 years old: 107 mL/min/1.73sq m Chronic Kidney Disease: <60 mL/min/1.73sq m Kidney failure: <15 mL/min/1.73sq m eGFR calculated using average adult body mass. Additional eGFR calculator available at: http://www.[employer].SportID/multiple_crcl_2012.htm Performed By: #### P T, CMPX, MG, CDP #### [employer] [address] [place] [address] Albumin mass conc 2.3 g/dL Low 3.5-5.2 [facility] Comment on above: Performed By: #### P T, CMPX, MG, CDP #### [facility] [address] [place] [address] 71645 Albumin/Globulin mass ratio 0.7 {ratio} Low 1.0-2.5 [facility] Comment on above: Performed By: #### P T, CMPX, MG, CDP #### [facility] [employer] [address] [place] [address] 52764 Alkaline Phos 67 U/L Normal 35-104 [facility] Comment on above: Performed By: #### P T, CMPX, MG, CDP #### [facility] [employer] [address] [place] [address] 22305 ALT enzyme act/vol 33 U/L Normal 5-33 [facility] Comment on above: Performed By: #### P T, CMPX, MG, CDP #### [facility] [address] [place] [address] 20383 Anion gap molar conc 11 mmol/L Normal 9-17 [facility] Comment on above: Performed By: #### P T, CMPX, MG, CDP #### [facility] [address] [place] [address] 40826 AST enzyme act/vol 41 U/L High <32 [facility] Comment on above: Performed By: #### P T, CMPX, MG, CDP #### [facility] [employer] [address] [place] [address] 83011 Bilirubin Ql (U) 0.40 mg/dL Normal 0.3-1.2 [facility] Comment on above: Performed By: #### P T, CMPX, MG, CDP #### [facility] [employer] [address] [place] [address] 26480 Calcium mass conc 7.3 mg/dL Low 8.6-10.4 [facility] Comment on above: Performed By: #### P T, CMPX, MG, CDP #### [facility] [employer] [address] [place] [address] 00470 Chloride molar conc 105 mmol/L Normal 98-107 [facility] Comment on above: Performed By: #### P T, CMPX, MG, CDP #### [facility] [address] [place] [address] 76611 CO2 molar conc 18 mmol/L Low 20-31 [facility] Comment on above: Performed By: #### P T, CMPX, MG, CDP #### [facility] [address] [place] [address] 14586 Creatinine mass conc 1.09 mg/dL High 0.50-0.90 [facility] Comment on above: Performed By: #### P T, CMPX, MG, CDP #### [facility] [address] [place] [address] 94079 GFR, Amer >60 Normal >60 [facility] Comment on above: Performed By: #### P T, CMPX, MG, CDP #### [facility] [address] [place] [address] 64234 GFR,non Amer 56 mL/min Low >60 [facility] Comment on above: Performed By: #### P T, CMPX, MG, CDP #### [facility] [address] [place] [address] 01131 Glucose mass conc 128 mg/dL High 70-99 [facility] Comment on above: Performed By: #### P T, CMPX, MG, CDP #### [facility] [address] [place] [address] 74094 Potassium molar conc 3.6 mmol/L Low 3.7-5.3 [facility] Comment on above: Performed By: #### P T, CMPX, MG, CDP #### [facility] [employer] [address] [place] [address] 24220 Protein mass conc 5.5 g/dL Low 6.4-8.3 [facility] Comment on above: Performed By: #### P T, CMPX, MG, CDP #### [facility] [employer] [address] [place] [address] 59531 Sodium molar conc 134 mmol/L Low 135-144 [facility] Comment on above: Performed By: #### P T, CMPX, MG, CDP #### [facility] [employer] [address] [place] [address] 55857 Urea nitrogen mass conc 17 mg/dL Normal 6-20 [facility] Comment on above: Performed By: #### P T, CMPX, MG, CDP #### [facility] [address] [place] [address] 53381 BUN/CRE Ratio NOT REPORTED Normal -20 [facility] Comment on above: Performed By: #### P T, CMPX, MG, CDP #### [facility] [address] [place] [address] 90652 Staging: NOT REPORTED Normal [facility] Comment on above: Performed By: #### P T, CMPX, MG, CDP #### [facility] [address] [place] [id number] Lactic Acid,Whole Blon 08-16 Lactic Acid,Whole Bl 1.2 mmol/L Normal 0.7-2.1 [facility] Comment on above: Performed By: #### L ACDS, TROPI, PRCAL, MYCM #### [facility] [employer] [address] [place] [address] Lactic Acid,Whole Bl 1.2 mmol/L Normal 0.7-2.1 [facility] Comment on above: Performed By: #### L ACWB #### [address] [address] Magnesiumon 08-16-2018 Magnesium mass conc 2.0 mg/dL Normal 1.6-2.6 [facility] Comment on above: Performed By: #### L ACDS, TROPI, PRCAL, MYCM #### [address] [address] Mycoplasma Ab,IgMon 08-16-20 18 Mycoplasma Ab,IgM 0.22 Normal <0.91 [facility] Comment on above: Result Comment: Reference Range: <=0.90 Negative 0.91-1.09 Equivocal >=1.10 Positive Performed By: #### L ACDS, TROPI, PRCAL, MYCM #### [address] [id number] PTon 08-16-2018 INR Coag RelTime (PPP) 1.0 {INR} Normal [facility] Comment on above: Result Comment: Therapeutic Range: Moderate Anticoagulant Intensity: INR = 2.0-3.0 High Anticoagulant Intensity: INR = 2.5-3.5 Performed By: #### P T, CMPX, MG, CDP #### [address] [address] Prothrombin time (PT) Coag time (PPP) 11.0 s Normal 9.0-12.0 [facility] Comment on above: Performed By: #### P T, CMPX, MG, CDP #### [address] [address] Troponinon 08-16-2018 Troponin I.cardiac mass conc Normal [facility] Comment on above: Result Comment: Refe [...] information for diagnosis. Performed By: #### T FIOR #### [address] [id number] Troponin I.cardiac mass conc ng/mL Normal <0.03 [facility] Comment on above: Result Comment: Trop onin T results cannot be compared to Troponin-I results. Performed By: #### T FIOR #### [address] [id number] XR CHEST (2 VW)on 08-16-2018 XR CHEST [...] Noe Mitchell MD 08/16/18 Final result Normal [facility] Lactate, Sepsison 08-15-2018 Lactic Acid,Sep Wbld 3.5 mmol/L High 0.5-1.9 [facility] Comment on above: Performed By: #### L ACDS, TROPI, PRCAL, MYCM #### [address] [id number] Lactic Acid, Sepsis NOT REPORTED Normal 0.5-1.9 [facility] Comment on above: Performed By: #### L ACDS, TROPI, PRCAL, MYCM #### [address] [id number] Legionella Ag, Uron 08-15-20 Legionella Ag, Ur [...] this test. Report Status FINAL 08/15/2018 Normal [facility] Comment on above: Performed By: #### U LAG #### [address] [id number] Procalcitoninon 08-15-2018 Protein mass conc 3.39 ng/mL High <0.09 [facility] Comment on above: Result Comment: Suspected Sepsis: [...] entered into the Change in Procalcitonin Calculator ([email or web address]) to determine the patient's Mortality Risk Prognosis Performed By: #### L ACDS, TROPI, PRCAL, MYCM #### [facility] [employer] [address] [place] [address] Strep pneum Ag,CSF/Uron 08-05 Strep pneum Ag,CSF/Ur Specimen Descripti on .CLEAN CATCH URINE Special Requests NOT REPORTED Direct Exam NEGATIVE: Strep pneumoniae antigen not detected Report Status FINAL 08/15/2018 Normal [facility] Comment on above: Performed By: #### S PAG #### [facility] [employer] [address] [place] [address] [id number] Troponinon 08-15-2018 Troponin I.cardiac mass conc ng/mL Normal <0.03 [facility] Comment on above: Result Comment: Trop onin T results cannot be compared to Troponin-I results. Performed By: #### L ACDS, TROPI, PRCAL, MYCM #### [employer] [address] [place], [place] [id number] Troponin I.cardiac mass conc Normal [facility] Comment on above: Result Comment: Refe [...] #### L ACDS, TROPI, PRCAL, MYCM #### [facility] [address] [place] [address] Urinalysison 11-18-2017 Bilirubin, Urine Negative Invalid Interpretation Code NEG;NEGATIVE [facility] Blood, Urine Moderate Abnormal NEG;NEGATIVE [facility] Interpretation and review of laboratory results Abnormal Invalid Interpretation Code [facility] Nitrite, Urine Negative Invalid Interpretation Code NEG;NEGATIVE [facility] Protein, Urine Negative Invalid Interpretation Code NEG;NEGATIVE mg/dL [facility] RBCs, Urine 1 /HPF Invalid Interpretation Code 0 - 5 [facility] Squamous Epithelial < 1 Invalid Interpretation Code 0 - 40 /HPF [facility] Urine, bacteria in sediment Rare Invalid Interpretation Code NS;RARE /HPF [facility] Urine, character Hazy Invalid Interpretation Code [facility] Urine, color Yellow Invalid Interpretation Code [facility] Urine, glucose presence Negative Invalid Interpretation Code NEG;NEGATIVE mg/dL [facility] Urine, ketones presence Negative Invalid Interpretation Code NEG;NEGATIVE mg/dL [facility] Urine, leukocyte esterase presence Small Abnormal Negative [facility] Urine, pH 6.0 [pH] Invalid Interpretation Code 4.5 - 8.0 [facility] Urine, specific gravity 1.014 1 Invalid Interpretation Code 1.003 - 1.029 [facility] Urobilinogen, Urine < 2.0 Invalid Interpretation Code <2 mg/dL [facility] WBCs, Urine 6 /HPF High 0 - 5 [facility] CBC and Differentialon 11-17 Basophils 0.7 % Invalid Interpretation Code [facility] Basophils 0.1 K/mcL Invalid Interpretation Code 0 - 0.2 [facility] Eosinophils 0.2 K/mcL Invalid Interpretation Code 0 - 0.5 [facility] Erythrocytes (RBC) 3.97 M/mcL Invalid Interpretation Code 3.7 - 5.0 [facility] Hematocrit (HCT) 35.7 % Invalid Interpretation Code 34.4 - 44.8 % [facility] Hemoglobin (HGB) 12.2 g/dL Invalid Interpretation Code 11.6 - 15.4 g/dL [facility] Interpretation and review of laboratory results Abnormal Invalid Interpretation Code [facility] Lymphocytes 2.1 K/mcL Invalid Interpretation Code 1.0 - 3.7 [facility] MCH 30.6 pg Invalid Interpretation Code 27.9 - 33.9 pg [facility] MCHC 34.0 g/dL Invalid Interpretation Code 33.1 - 35.1 g/dL [facility] MCV 89.8 fL Invalid Interpretation Code 82.6 - 98.9 [facility] Monocytes 0.6 K/mcL Invalid Interpretation Code 0.1 - 0.6 [facility] Neutrophils 6.6 K/mcL Invalid Interpretation Code 1.2 - 6.9 [facility] Platelet mean volume (PMV) 8.6 fL Invalid Interpretation Code 7.0 - 10.6 [facility] Platelets 196 K/mcL Invalid Interpretation Code 162 - 402 [facility] RDW-CA 15.0 % High 10 - 14.4 % [facility] Segmented Neut 69.6 % Invalid Interpretation Code [facility] T8 suppressor/100 cells 1.8 10*3/uL Invalid Interpretation Code [facility] T8 suppressor/100 cells 21.8 10*3/uL Invalid Interpretation Code [facility] T8 suppressor/100 cells 6.1 10*3/uL Invalid Interpretation Code [facility] WBC (Leukocytes) 9.5 K/mcL Invalid Interpretation Code 3.4 - 10.6 [facility] Comprehensive Metabolic Pane ananda 11-17-2017 Alanine aminotransferase (ALT) 18 U/L Invalid Interpretation Code 14 - 65 U/L [facility] Albumin 3.1 g/dL Low 3.2 - 5.2 g/dL [facility] Alkaline phosphatase (ALP) 78 U/L Invalid Interpretation Code 40 - 140 U/L [facility] Aspartate aminotransferase (AST) 7 U/L Invalid Interpretation Code 0 - 45 U/L [facility] Calcium 8.6 mg/dL Invalid Interpretation Code 8.4 - 10.2 mg/dL [facility] Chloride 106 mmol/L Invalid Interpretation Code 98 - 108 mmol/L [facility] CO2 27 mmol/L Invalid Interpretation Code 21 - 32 mmol/L [facility] Creatinine 1.13 mg/dL High 0.4 - 1.1 mg/dL [facility] eGFR (black) mL/min/{1.73_m2} Invalid Interpretation Code ml/min/1.73sq .m [facility] eGFR (non-black) 54 mL/min/{1.73_m2} Low >60 [facility] Glucose 113 mg/dL High 70 - 99 mg/dL [facility] Interpretation and review of laboratory results Abnormal Invalid Interpretation Code [facility] Potassium 3.7 mmol/L Invalid Interpretation Code 3.5 - 5.1 mmol/L [facility] Protein 6.8 g/dL Invalid Interpretation Code 6 - 8 g/dL [facility] Sodium 140 mmol/L Invalid Interpretation Code 135 - 145 mmol/L [facility] Urea nitrogen 17 mg/dL Invalid Interpretation Code 8 - 25 mg/dL [facility] Urine, bilirubin presence 0.4 mg/dL Invalid Interpretation Code 0.3 - 1.2 mg/dL [facility] Lipaseon 11-17-2017 Lipase 167 U/L Invalid Interpretation Code 73 - 393 U/L [facility] Vital Signs Date Time Vital Sign Value Performing Clinician Yovani mclaughlin 04-20-2025 12:32-0400 Body height 157.5 cm Robbin Sánchez DPM Work Phone: [facility] 04-20-2025 12:32-0400 Body mass index (BMI) [Ratio] 38.41 kg/m2 Robbin Sánchez DPM Work Phone: [facility] 04-20-2025 12:32-0400 Body weight 95.25 kg Christopher Bohach DPM Work Phone: [facility] 04-20-2025 12:32-0400 Diastolic blood pressure 89 mm[Hg] Christopher Bohach DPM Work Phone: [facility] 04-20-2025 12:32-0400 Heart rate 101 /min Christopher Bohach DPM Work Phone: [facility] 04-20-2025 12:32-0400 Systolic blood pressure 128 mm[Hg] Christopher Bohach DPM Work Phone: [facility] 04-06-2025 16:21-0400 Body height 157.5 cm Christopher Bohach DPM Work Phone: [facility] 04-06-2025 16:21-0400 Body mass index (BMI) [Ratio] 38.41 kg/m2 Christopher Bohach DPM Work Phone: [facility] 04-06-2025 16:21-0400 Body weight 95.25 kg Christopher Bohach DPM Work Phone: [facility] 04-06-2025 16:21-0400 Diastolic blood pressure 80 mm[Hg] Christopher Bohach DPM Work Phone: [facility] 04-06-2025 16:21-0400 Heart rate 89 /min Christopher Bohach DPM Work Phone: [facility] 04-06-2025 16:21-0400 Systolic blood pressure 118 mm[Hg] Christopher Bohach DPM Work Phone: [facility] 04-04-2025 23:15-0400 Diastolic blood pressure 70 mm[Hg] Severo Case MD Work Phone: [facility] 04-04-2025 23:15-0400 Heart rate 74 /min Severo Case MD Work Phone: [employer] 04-04-2025 23:15-0400 Respiratory rate 16 /min [facility] 04-04-2025 23:15-0400 SaO2% (BldA) [Mass fraction] 97 % Severo Case MD Work Phone: [facility] [employer] 04-04-2025 23:15-0400 Systolic blood pressure 122 mm[Hg] Severo Case MD Work Phone: [facility] [employer] 04-04-2025 21:24-0400 Body height 152.4 cm Severo Case MD Work Phone: [facility] [employer] 04-04-2025 21:24-0400 Body mass index (BMI) [Ratio] 41.99 kg/m2 Severo Case MD Work Phone: [facility] [employer] 04-04-2025 21:24-0400 Body weight 97.52 kg Severo Case MD Work Phone: [facility] [employer] 04-04-2025 21:15-0400 Body temperature 99 [degF] Severo Case MD Work Phone: [facility] [employer] 03-14-2025 12:02-0400 Body height 157.5 cm Lynn Block MD Work Phone: [facility] [employer] 03-14-2025 12:02-0400 Body mass index (BMI) [Ratio] 38.41 kg/m2 Lynn Block MD Work Phone: [facility] [employer] 03-14-2025 12:02-0400 Body weight 95.25 kg Lynn Block MD Work Phone: [facility] 12-06-2024 13:00-0500 Body height 157.5 cm Lynn Block MD Work Phone: [facility] 12-06-2024 13:00-0500 Body mass index (BMI) [Ratio] 38.41 kg/m2 Lynn Block MD Work Phone: [facility] 12-06-2024 13:00-0500 Body weight 95.25 kg Lynn Block MD Work Phone: [facility] 11-14-2024 11:31-0500 Body height 157.5 cm Fozia Meng EMISSIONS REPAIR TECHNICIAN Work Phone: [facility] 11-14-2024 11:31-0500 Body mass index (BMI) [Ratio] 37.9 kg/m2 Fozia Lyndanagel EMISSIONS REPAIR TECHNICIAN Work Phone: [facility] 11-14-2024 11:31-0500 Body weight 93.98 kg Fozia Eamongel EMISSIONS REPAIR TECHNICIAN Work Phone: [facility] 11-14-2024 11:31-0500 Diastolic blood pressure 80 mm[Hg] Fozia Lyndanagel EMISSIONS REPAIR TECHNICIAN Work Phone: [facility] 11-14-2024 11:31-0500 Systolic blood pressure 134 mm[Hg] Fozia Lyndanagel EMISSIONS REPAIR TECHNICIAN Work Phone: [facility] 10-11-2024 09:42-0500 Body height 157.5 cm Sherman Adair MD Work Phone: [facility] 10-11-2024 09:42-0500 Body mass index (BMI) [Ratio] 38.23 kg/m2 Sherman Adair MD Work Phone: [facility] 10-11-2024 09:42-0500 Body temperature 98.29 [degF] Sherman Adair MD Work Phone: [facility] 10-11-2024 09:42-0500 Body weight 94.8 kg Sherman Adair MD Work Phone: [facility] 09-14-2024 11:30-0500 Body height 157.5 cm Fozia Meng EMISSIONS REPAIR TECHNICIAN Work Phone: [facility] 09-14-2024 11:30-0500 Body mass index (BMI) [Ratio] 39.91 kg/m2 Fozia Meng EMISSIONS REPAIR TECHNICIAN Work Phone: [facility] 09-14-2024 11:30-0500 Body weight 98.97 kg Fozia Meng EMISSIONS REPAIR TECHNICIAN Work Phone: [facility] 09-14-2024 11:30-0500 Diastolic blood pressure 70 mm[Hg] Fozia Meng EMISSIONS REPAIR TECHNICIAN Work Phone: [facility] 09-14-2024 11:30-0500 Systolic blood pressure 140 mm[Hg] Fozia Meng EMISSIONS REPAIR TECHNICIAN Work Phone: [facility] 06-10-2024 10:09-0400 Body height 157.5 cm Tiffanie Casas MD Work Phone: [facility] 06-10-2024 10:09-0400 Body mass index (BMI) [Ratio] 38.96 kg/m2 Tiffanie Casas MD Work Phone: [facility] 06-10-2024 10:09-0400 Body weight 96.62 kg Tiffanie Casas MD Work Phone: [facility] 06-10-2024 10:09-0400 Diastolic blood pressure 84 mm[Hg] Tiffanie Casas MD Work Phone: [facility] 06-10-2024 10:09-0400 Systolic blood pressure 132 mm[Hg] Tiffanie Casas MD Work Phone: [facility] 05-10-2024 14:20-0400 Body height 157.5 cm Lore Ginger DO Work Phone: [facility] 05-10-2024 14:20-0400 Body mass index (BMI) [Ratio] 38.41 kg/m2 Lore Ginger DO Work Phone: [facility] 05-10-2024 14:20-0400 Body weight 95.25 kg Lore Ginger DO Work Phone: [facility] 08-06-2024 14:20-0400 Diastolic blood pressure 74 mm[Hg] Lore Ginger DO Work Phone: [facility] 05-10-2024 14:20-0400 Heart rate 83 /min Lore Ginger DO Work Phone: [facility] 05-10-2024 14:20-0400 SaO2% (BldA) [Mass fraction] 97 % Lore Ginger DO Work Phone: [facility] 05-10-2024 14:20-0400 Systolic blood pressure 118 mm[Hg] Lore Ginger DO Work Phone: [facility] 03-03-2023 14:44-0400 Body temperature 98.49 [degF] MASSIMO Hassmann DPM Work Phone: [facility] 03-03-2023 14:44-0400 Diastolic blood pressure 87 mm[Hg] CJ Hassmann DPM Work Phone: [facility] 03-03-2023 14:44-0400 Heart rate 94 /min CJ Hassmann DPM Work Phone: [facility] 03-03-2023 14:44-0400 Systolic blood pressure 139 mm[Hg] CJ Hassmann DPM Work Phone: [facility] 07-02-2022 09:36-0400 Body height 157.5 cm [employer] Work Phone: [facility] [employer] 07-02-2022 09:36-0400 Body mass index (BMI) [Ratio] 38.67 kg/m2 [employer] Work Phone: [facility] 07-02-2022 09:36-0400 Body weight 95.89 kg [employer] Work Phone: [facility] 09-16-2020 20:53-0500 BMI (Body Mass Index) 39.32 kg/m2 Robbin Rooney [facility] [place] 09-16-2020 20:53-0500 Body Temperature 99.5 [degF] Phillipdipak Rooney [facility] [place] 09-16-2020 20:53-0500 Body weight 97.52 kg Robbin Rooney [facility] [place] 09-16-2020 20:53-0500 BP Diastolic 109 mm[Hg] Robbin Rooney [facility] [place] 09-16-2020 20:53-0500 BP Systolic 189 mm[Hg] Robbin Rooney [facility] [place] 09-16-2020 20:53-0500 Height 157.5 cm [facility] 09-16-2020 20:53-0500 Pulse (Heart Rate) 99 /min [facility] [place], [place] 09-16-2020 20:53-0500 Pulse Oximetry 96 % [facility] [place] 09-16-2020 20:53-0500 Respiratory Rate 18 /min [facility] [place] Encounters Encounter Date Encounter Type Care Provider Facility Start: 05-15-2025 End: 05-15-2025 ambulatory [facility] Start: 05-15-2025 End: 05-15-2025 Subsequent hospital visit by physician [facility] Schedule [facility] Comment on above: Arrived Start: 04-20-2025 End: 04-20-2025 Bamboo flowsheet Robbin Sánchez DPM Work Phone: [facility] Start: 04-20-2025 End: 04-20-2025 Raphaelboo flowsheet Robbin Sánchez DPM Work Phone: [facility] Start: 04-20-2025 End: 04-20-2025 Office outpatient visit 25 minutes Robbin Sánchez DPM Work Phone: [facility] Comment on above: MRSA (methicillin re sistant staph aureus) culture positive (Primary Dx); Right foot pain; Skin ulcer of toe of right foot with fat layer exposed (HCC); Idiopathic progressive polyneuropathy; Infection of toe; Charcot arthropathy of midfoot; Ulcer of left foot, limited to breakdown of skin (HCC); Closed nondisplaced fracture of second metatarsal bone of right foot, initial encounter Start: 04-20-2025 End: 04-20-2025 ambulatory ROBBIN SÁNCHEZ Not Available Start: 04-14-2025 End: 04-14-2025 [facility] Start: 04-14-2025 End: 04-14-2025 Subsequent hospital visit by physician Felipe Adam MD Work Phone: [facility] Comment on above: Hyperglycemia; Mixed hyperlipidemia; Chronic renal impairment, stage 3a (HCC) Start: 04-12-2025 End: 04-12-2025 Clinisync Result Encounter Robbin GARCIAM Work Phone: [facility] External Department Unsolicited Start: 04-12-2025 End: 04-12-2025 Clinisync Result Encounter Robbin Sánchez DPM Work Phone: [facility] External Department Unsolicited Start: 04-11-2025 End: 04-11-2025 Clinisync Result Encounter Robbin Sánchez DPM Work Phone: [facility] External Department Unsolicited Start: 04-11-2025 End: 04-11-2025 Clinisync Result Encounter Robbin Sánchez DPM Work Phone: [facility] External Department Unsolicited Start: 04-11-2025 End: 04-13-2025 ambulatory [facility]NCHEZ [facility] Start: 04-11-2025 End: 04-13-2025 Subsequent hospital visit by physician Robbin Sánchez DPM Work Phone: [facility] Comment on above: Pain in right foot Start: 04-06-2025 End: 04-06-2025 Office outpatient visit 25 minutes Robbin GARCIAM Work Phone: [facility] Comment on above: Right foot pain (Vikki baldev Dx); Skin ulcer of toe of right foot with fat layer exposed (HCC); Infection of toe; Idiopathic progressive polyneuropathy; Generalized edema Start: 04-06-2025 End: 04-06-2025 ambulatory ROBBIN SÁNCHEZ Not Available Start: 04-06-2025 End: 04-06-2025 Bamboo flowsheet Robbin Sánchez DPM Work Phone: [facility] Start: 04-06-2025 End: 04-06-2025 Bamboo flowsheet Robbin Sánchez DPM Work Phone: [facility] Start: 04-04-2025 End: 04-05-2025 Emergency department patient visit Severo Case MD Work Phone: [facility] Comment on above: Pressure injury of d eep tissue of toe, unspecified laterality (Primary Dx) Start: 03-14-2025 End: 03-14-2025 Bamboo flowsheet Lynn Block MD Work Phone: [facility] Start: 03-14-2025 End: 03-14-2025 Bamboo flowsheet Lynn Block MD Work Phone: [facility] Start: 03-14-2025 End: 03-14-2025 Office outpatient visit 25 minutes Lynn Block MD Work Phone: [facility] Comment on above: BUCK (obstructive sle ep apnea) (Primary Dx); Claustrophobia ; Hypersomnia Start: 03-14-2025 End: 03-14-2025 ambulatory LYNN BLOCK Not Available Start: 02-15-2025 End: 02-17-2025 ambulatory FELIPE ADAM [facility] Start: 02-15-2025 End: 02-17-2025 Subsequent hospital visit by physician Felipe Adam MD Work Phone: [facility] Comment on above: Encounter for screen ing mammogram for malignant neoplasm of breast Start: 02-13-2025 ambulatory Facility:[facility] Start: 02-13-2025 End: 02-13-2025 Bamboo flowsheet Tiffanie Casas MD Work Phone: [facility] Start: 02-13-2025 End: 02-13-2025 Bamboo flowsheet Tiffanie Casas MD Work Phone: [facility] Start: 02-13-2025 End: 02-13-2025 ambulatory TIFFANIE CASAS Not Available Start: 02-13-2025 End: 02-13-2025 Office outpatient visit 25 minutes Tiffanie Casas MD Work Phone: [facility] Comment on above: Charcot's joint, lef t ankle and foot (Primary Dx); Gait instability; Idiopathic progressive polyneuropathy; Intractable 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 (CMS/HCC); Restless legs; Carpal tunnel syndrome, bilateral; BUCK (obstructive sleep apnea) Start: 12-06-2024 End: 12-06-2024 Bamboo flowsheet Lynn Block MD Work Phone: [facility] Start: 12-06-2024 End: 12-06-2024 Bamboo flowsheet Lynn Block MD Work Phone: [facility] Start: 12-06-2024 End: 12-06-2024 ambulatory LYNN BLOCK Not Available Start: 12-06-2024 End: 12-06-2024 Office outpatient new 60 minutes Lynn Block MD Work Phone: [facility] Comment on above: BUKC (obstructive sle ep apnea) (Primary Dx); BUCK on CPAP; Claustrophobia (CMS/HCC) Start: 11-14-2024 End: 11-14-2024 Bamboo flowsheet Fozia Meng EMISSIONS REPAIR TECHNICIAN Work Phone: [facility] Start: 11-14-2024 End: 11-14-2024 Bamboo flowsheet Fozia Meng EMISSIONS REPAIR TECHNICIAN Work Phone: [facility] Start: 11-14-2024 End: 11-14-2024 Office outpatient visit 25 minutes Fozia Meng EMISSIONS REPAIR TECHNICIAN Work Phone: [facility] Comment on above: BUCK on CPAP (Primary Dx); Idiopathic progressive polyneuropathy; Restless legs; Intractable 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 (CMS/HCC) Start: 11-14-2024 End: 11-14-2024 ambulatory FOZIA Jamila MENG Not Available Start: 11-14-2024 End: 11-14-2024 ambulatory [facility] Start: 11-14-2024 End: 11-14-2024 Subsequent hospital visit by physician Felipe Adam MD Work Phone: [facility] Comment on above: Pre-diabetes; Mixed hyperlipidemia Start: 11-02-2024 End: 11-02-2024 Telephone encounter Janel Allen EMISSIONS REPAIR TECHNICIAN Work Phone: [facility] Start: 10-11-2024 End: 10-11-2024 Office outpatient new 45 minutes Felipe Adam MD Work Phone: [facility] Comment on above: Thyroid nodule (Prim misa Dx); Lipoma of neck Start: 10-11-2024 End: 10-11-2024 ambulatory [facility] Start: 10-05-2024 End: 10-06-2024 Preet Casas MD Work Phone: [facility] Comment on above: Idiopathic progressi ve polyneuropathy; Non-seasonal allergic rhinitis due to pollen Start: 09-14-2024 End: 09-14-2024 Bamboo flowsheet Fozia Jamila Knutsongel EMISSIONS REPAIR TECHNICIAN Work Phone: [facility] Start: 09-14-2024 End: 09-14-2024 Bamboo flowsheet Fozia C Lyndanagel EMISSIONS REPAIR TECHNICIAN Work Phone: [facility] Start: 09-14-2024 End: 09-14-2024 Telephone encounter Fozia Knutsongel EMISSIONS REPAIR TECHNICIAN Work Phone: [facility] Start: 09-14-2024 End: 09-14-2024 Office outpatient visit 25 minutes Fozia Meng EMISSIONS REPAIR TECHNICIAN Work Phone: [facility] Comment on above: BUCK on CPAP (Primary Dx); Idiopathic progressive polyneuropathy; Intractable 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 (CMS/HCC); Restless legs; Bilateral carpal tunnel syndrome Start: 09-14-2024 End: 09-14-2024 ambulatory FOZIA Jamila LYNDAPIERCECHANTEL Not Available Start: 09-09-2024 End: 09-09-2024 Transcribe Orders Fozia Marcus [facility] [facility] [place] Comment on above: Thyroid nodule (Prim misa Dx) Start: 09-06-2024 End: 09-08-2024 ambulatory FELIPE ADAM [facility] Start: 09-06-2024 End: 09-08-2024 Subsequent hospital visit by physician Felipe Adam MD Work Phone: [facility] Ultrasound Comment on above: Thyroid nodule Start: 08-11-2024 End: 08-11-2024 Refill Tiffanie Casas MD Work Phone: [facility] Comment on above: Idiopathic progressi ve polyneuropathy; Non-seasonal allergic rhinitis due to pollen Start: 06-10-2024 End: 06-10-2024 Bamboo flowsheet Tiffanie Casas MD Work Phone: [facility] Start: 06-10-2024 End: 06-10-2024 Bamsarao flowsheet Tiffanie Casas MD Work Phone: [facility] Start: 06-10-2024 End: 06-10-2024 Office outpatient visit 25 minutes Tiffanie Casas MD Work Phone: [facility] Comment on above: Idiopathic progressi ve polyneuropathy (Primary Dx); Bilateral carpal tunnel syndrome; Restless legs; Intractable 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 (CMS/HCC) Start: 06-10-2024 End: 06-10-2024 ambulatory TIFFANIE CASAS Not Available Start: 05-10-2024 End: 05-10-2024 Subsequent hospital visit by physician Felipe Adam MD Work Phone: [facility] Start: 05-10-2024 End: 05-10-2024 Office outpatient visit 40 minutes Lore Miles DO Work Phone: [facility] Comment on above: BUCK (obstructive sle ep apnea); Hypersomnia; Snoring; Class 2 obesity due to excess calories with body mass index (BMI) of 38.0 to 38.9 in adult, unspecified whether serious comorbidity present Start: 05-10-2024 End: 05-10-2024 ambulatory LORE MILES Not Available Start: 02-15-2024 End: 02-15-2024 [facility]ulatory [facility] Start: 02-15-2024 End: 02-15-2024 ambulatory DPM Frances Harris Work Phone: [facility] Work Phone: Start: 02-15-2024 End: 02-15-2024 Departed Referred DP Frances Harris Work Phone: [facility] Start: 06-15-2023 End: 06-15-2023 Subsequent hospital visit by physician Felipe Adam MD Work Phone: [facility] Comment on above: Mixed hyperlipidemia Start: 04-03-2023 ambulatory FELIPE ADAM [facility] Start: 03-03-2023 End: 03-03-2023 Office outpatient new 45 minutes MASSIMO Shook DP Work Phone: [facility] Comment on above: Charcot arthropathy of midfoot (Primary Dx); Gastrocnemius equinus, unspecified laterality; Foot pain, left Start: 02-11-2023 End: 02-12-2023 [facility] Start: 02-05-2023 End: 02-05-2023 Subsequent hospital visit by physician Felipe Adam MD Work Phone: [facility] Comment on above: Pelvic pressure in f emale Start: 02-04-2023 End: 02-05-2023 [facility] Start: 01-28-2023 End: 01-29-2023 ambulatory [facility] Start: 01-06-2023 End: 01-06-2023 Emergency department patient visit [facility] Start: 07-09-2022 End: 07-09-2022 Subsequent hospital visit by physician JOE Cameron RD Work Phone: [facility] Diet and Nutrition Comment on above: Arrived Start: 07-02-2022 End: 07-02-2022 Subsequent hospital visit by physician [facility] Work Phone: [facility] Diabetic Education Start: 06-25-2022 End: 06-27-2022 Subsequent hospital visit by physician [facility] Additional Xray At [facility] [place] [facility] Radiology Comment on above: Foreign body (FB) in soft tissue Start: 06-25-2022 End: 06-27-2022 Subsequent hospital visit by physician [facility] Mri [facility] MRI Comment on above: Pain of foot, unspec ified laterality; Closed nondisplaced fracture of second metatarsal bone of left foot, initial encounter; Closed nondisplaced fracture of lateral cuneiform of left foot, initial encounter Start: 05-27-2022 End: 2022 Subsequent hospital visit by physician [facility] Ultrasound Room [facility] Ultrasound Comment on above: Neck mass Start: 04-28-2022 End: 04-29-2022 ambulatory [facility] Start: 04-28-2022 End: 04-28-2022 Subsequent hospital visit by physician Felipe Adam MD Work Phone: [facility] Comment on above: Acute cystitis with hematuria Start: 04-12-2022 End: 04-12-2022 Subsequent hospital visit by physician Felipe Adam MD Work Phone: [facility] Laboratory Comment on above: Fatigue, unspecified type; Encounter for screening for HIV; Mixed hyperlipidemia; Hyperglycemia; Chronic renal impairment, stage 3b (HCC) Start: 02-05-2022 End: 02-05-2022 Subsequent hospital visit by physician Chrsitel Donohue PT [facility] Physical Therapy Start: 02-04-2022 End: 02-04-2022 Patient encounter procedure [facility] [address] Start: 02-03-2022 End: 02-03-2022 Subsequent hospital visit by physician Hilaria Trujillo [facility] Physical Therapy Start: 01-29-2022 End: 01-29-2022 Subsequent hospital visit by physician Beverly Rangel SALES REPRESENTATIVE [employer] [facility] Physical Therapy Comment on above: Arrived Start: 01-27-2022 End: 01-27-2022 Subsequent hospital visit by physician Christel Donohue PT [facility] Therapy Comment on above: Arrived Start: 01-24-2022 End: 01-24-2022 Subsequent hospital visit by physician Vanessa Garcia PT [facility] Comment on above: Arrived Start: 01-22-2022 End: 01-22-2022 Subsequent hospital visit by physician Beverly Rangel SALES REPRESENTATIVE [employer] [facility] Physical Therapy Start: 01-17-2022 End: 01-17-2022 Subsequent hospital visit by physician Beverly Rangel SALES REPRESENTATIVE [employer] [facility] Physical Therapy Comment on above: Arrived Start: 01-13-2022 End: 01-13-2022 Subsequent hospital visit by physician Christel Donohue PT [facility] Start: 01-03-2022 End: 01-03-2022 Subsequent hospital visit by physician Beverly Rangel SALES REPRESENTATIVE [employer] [facility] Physical Therapy Comment on above: Arrived [...] End: 02-13-2021 Subsequent hospital visit by physician [facility]19 Pat Screening Schedule [facility] Comment on above: Suspected COVID-19 v irus infection Start: 01-21-2021 End: 01-21-2021 Subsequent hospital visit by physician [facility] Pat Screening Schedule [facility] Comment on above: Viral illness Start: 11-15-2020 End: 11-15-2020 Subsequent hospital visit by physician [facility] Pat Screening Schedule [facility] Comment on above: Arrived Start: 09-16-2020 End: 09-16-2020 Emergency department patient visit Phillipdipak Sales Toribio Work Phone: [facility] ED Comment on above: Acute thoracic [...] Subsequent hospital visit by physician Felipe Adam [facility] Laboratory Comment on above: Vitamin D deficiency ; Mixed hyperlipidemia; Hyperglycemia Start: 12-14-2019 End: 12-14-2019 Subsequent hospital visit by physician Felipe Adam [facility] Laboratory Comment on above: MRSA (methicillin re sistant Staphylococcus aureus) septicemia (HCC) Start: 09-24-2019 End: 09-24-2019 Subsequent hospital visit by physician Felipe Adam MD Work Phone: [facility] Start: 09-12-2019 End: 09-12-2019 Subsequent hospital visit by physician Felipe Adam MD Work Phone: [facility] SLEEP LAB Start: 08-29-2019 End: 08-29-2019 Subsequent hospital visit by physician [facility] Schedule [facility] SLEEP LAB Comment on above: Arrived Start: 07-28-2019 End: 07-30-2019 Subsequent hospital visit by physician [place] Additional Xray At [facility] Radiology Comment on above: MRSA (methicillin re sistant Staphylococcus aureus) septicemia (HCC) Start: 06-17-2019 End: 06-17-2019 Subsequent hospital visit by physician Felipe Adam [facility] Laboratory Comment on above: MRSA (methicillin re sistant Staphylococcus aureus) infection Start: 02-03-2019 End: 02-04-2019 Patient encounter procedure TIFFANIE W CASAS [facility] Start: 02-03-2019 End: 02-03-2019 Subsequent hospital visit by physician Tiffanie Casas Work Phone: [facility] MRI Comment on above: Brachial neuritis; Peripheral nerve disorder; Spasm of muscle Start: 11-10-2018 End: 11-10-2018 Patient encounter procedure Andrey Early Facility:[place] Start: 10-18-2018 End: 10-18-2018 Patient encounter procedure Andrey Early Work Phone: [facility] Start: 10-03-2018 Patient encounter procedure Dav Hartman Facility:[facility] Start: 10-03-2018 End: 10-03-2018 Patient encounter procedure [facility] Start: 09-20-2018 End: 09-21-2018 Patient encounter procedure Dav Hartman Facility:[facility] Start: 09-20-2018 Patient encounter procedure Facility:[id number] Start: 09-13-2018 Patient encounter procedure DAV HARTMAN [facility] Start: 09-06-2018 End: 09-06-2018 Patient encounter procedure Historical Provider [facility] Start: 08-31-2018 End: 08-31-2018 Patient encounter procedure Historical Provider [facility] Start: 08-27-2018 End: 08-28-2018 Patient encounter procedure Dav Hartman Facility:[facility] Start: 08-27-2018 Patient encounter procedure Facility:[id number] Start: 08-15-2018 End: 08-25-2018 Evaluation and management of inpatient JV APPLE [facility] Start: 04-02-2018 End: 04-02-2018 Patient encounter procedure Melchor Calderon Facility:[facility] Start: 03-23-2018 Patient encounter procedure Shanice Juares Facility:[facility] Start: 02-04-2018 End: 02-04-2018 Ambulatory Melchor Weston [facility] Start: 11-24-2017 Patient encounter procedure [facility] Start: 11-17-2017 End: 11-17-2017 Ambulatory Ceferino Corley Work Phone: [facility] Start: 10-20-2017 End: 10-20-2017 Ambulatory DAKSHA BETANCOURT [facility] Start: 10-20-2017 Patient encounter procedure [facility] Start: 10-09-2017 Ambulatory [facility] Start: 10-09-2017 End: 10-09-2017 Patient encounter procedure [facility] Start: 09-16-2017 Patient encounter procedure [facility] Start: 08-03-2017 Ambulatory [facility] Start: 03-31-2017 End: 03-31-2017 Ambulatory SHANICE JUARES [facility] Procedures Date Procedure Procedure Detail Performing Clinician Start: 05-15-2025 Basic metabolic pane l calcium total Frances Harris DPM Work Phone: Start: 05-15-2025 C-reactive protein Tyrone garth Harris DPM Work Phone: Start: 05-15-2025 MORPHOLOGY CHECK Frances Harris DPM Work Phone: Start: 04-14-2025 Comprehensive metabo lic panel Felipe Adam MD Work Phone: Start: 04-14-2025 Lipid panel Felipe Adam MD Work Phone: Start: 04-12-2025 MRI FOOT RIGHT W WO CONTRAST Robbin Sánchez DPM Work Phone: Start: 04-11-2025 Mri lower extrem oth /thn jt w/o & w/contr matr Robbin Sánchez DPM Work Phone: Start: 04-11-2025 Assay of urea nitrog en quantitative Robbin Sánchez DPM Work Phone: Start: 04-11-2025 MHPT BUN + CREATININE C hristdipak Sánchez DPM Work Phone: Start: 04-06-2025 Radiologic examinati on foot 2 views Robbin Sánchez DPM Work Phone: Start: 04-04-2025 End: 04-04-2025 Radex toe minimum 2 views Severo Case MD Work Phone: Start: 04-04-2025 C-reactive protein Becky Case MD Work Phone: Start: 04-04-2025 End: 04-04-2025 Natriuretic peptide Severo Case MD Work Phone: Start: 11-14-2024 Comprehensive metabo lic panel Felipe Adam MD Work Phone: Start: 11-14-2024 Lipid panel Felipe Adam MD Work Phone: Start: 09-06-2024 Us soft tissue head & neck real time imge docdieudonne Adam MD Work Phone: Start: 05-10-2024 Renal function panel Sw domenica Forbes MD Work Phone: Start: 05-10-2024 Urnls [...] Phone: Start: 01-21-2021 COVID-19 Pattiesebastian Tafoya lliams STICKER ON - EDUCATIONAL TECHNICIAN Work Phone: Start: 11-15-2020 COVID-19 Gosia Jau regui Work Phone: Start: 09-16-2020 Urnls dip stick/tabl et rgnt auto w/o microscopy Phillipdipak Sales Toribio Work Phone: Start: 09-16-2020 End: 09-16-2020 Blood count complete auto&auto difrntl wbc Robbin Sales Toribio Work Phone: Start: 09-16-2020 Sedimentation rate r [...] stick/tabl et rgnt auto w/o microscopy Heather Andrei Work Phone: Start: 05-25-2020 25 hydroxy includes [...] 09-24-2019 Hemoglobin glycosyla jamia a1c Janel Sales LiBiani STICKER ON - EDUCATIONAL TECHNICIAN Work Phone: Start: 09-24-2019 VITAMIN B12 & FOLATE Ja danny Dieudonne LiBiani STICKER ON - EDUCATIONAL TECHNICIAN Work Phone: Start: 07-28-2019 Radex spine cervical 4 or 5 views Azalea Longthorne Work Phone: Start: 07-28-2019 Blood count complete auto&auto difrntl wbc Azalea Longthorne STICKER ON - EDUCATIONAL TECHNICIAN Work Phone: Start: 07-28-2019 C-reactive protein Azalea Longthorne STICKER ON - EDUCATIONAL TECHNICIAN Work Phone: Start: 06-17-2019 Albumin serum plasma /whole blood Heather Andrei Work Phone: Start: 06-17-2019 Assay of magnesium Swap na Andrei Work Phone: Start: 06-17-2019 Assay of phosphorus inorganic Heather Benjaminadana Work Phone: Start: 06-17-2019 Assay of urea nitrog en quantitative Heather Benjaminadana Work Phone: Start: 06-17-2019 Blood count hemoglobin Heather Kamadana Work Phone: Start: 06-17-2019 Calcium total Heather Ka madana Work Phone: Start: 06-17-2019 Electrolyte panel Swapn a Heidyna Work Phone: Start: 06-17-2019 Protein total xcpt [...] Unless otherwise noted, all testing performed by [facility] [place] [address] [address] [place], [place] [address] CLIA: [id number] [place]: Harshad Solano M.D. Start: 09-06-2018 End: 09-06-2018 LABS (OUTSIDE) Historical Provider Start: 08-31-2018 End: 08-31-2018 LABS (OUTSIDE) Historical Provider Start: 08-25-2018 IP CONSULT TO HOME C ARE NEEDS JV APPLE Start: 08-25-2018 Assay of magnesium SHOAIB APPLE Start: 08-25-2018 Basic metabolic pane l calcium total JV ZECHARIAH Start: 08-25-2018 Blood count complete auto&auto difrntl wbc JV APPLE Start: 08-25-2018 Procalcitonin (pct) WAS SAMIRDieudonne ZECHARIAH Start: 08-25-2018 DISCHARGE PATIENT JUJU APPLE Start: 08-25-2018 PULSE OXIMETRY, CONTINUOUS JVMARISABEL APPLE Start: 08-25-2018 INSERT PICC LINE JV APPLE Start: 08-25-2018 MISCELLANEOUS NURSIN G CARE ORDER (SPECIFY) JV APPLE Start: 08-25-2018 DME ORDER FOR WALKER OP JVMARISABEL APPLE Start: 08-25-2018 PULSE OXIMETRY, CONTINUOUS JV APPLE Start: 08-25-2018 NOTIFY PHYSICIAN (SPECIFY) JV APPLE Start: 08-25-2018 NURSING COMMUNICATION W MITCHELEDIN APPLE Start: 08-25-2018 NASAL CANNULA OXYGEN WA [...] CONTINUOUS JV APPLE Start: 08-24-2018 DIET GENERAL JVMARISABEL LEON Velma Start: 08-24-2018 OT EVAL AND [...] LEON Velma Start: 08-24-2018 TISSUE CULTURE JV Brady LANG Start: 08-24-2018 FUNGUS CULTURE JV Abreu LANG Start: 08-24-2018 PULSE OXIMETRY, CONTINUOUS JV APPLE Start: 08-24-2018 Procalcitonin (pct) WAS MARISABEL APPLE Start: 08-24-2018 PULSE OXIMETRY, CONTINUOUS JV APPLE Start: 08-24-2018 DRAIN CARE JV EDWARD N Start: 08-24-2018 MISCELLANEOUS NURSIN G CARE ORDER (SPECIFY) JV APPLE Start: 08-24-2018 TRANSFER PATIENT JV APPLE Start: 08-24-2018 FLUORO FOR SURGICAL PROCEDURES JVMARISABEL APPLE Start: 08-23-2018 ANAEROBIC AND AEROBI C CULTURE JVMARISABEL APPLE Start: 08-23-2018 PULSE OXIMETRY, CONTINUOUS JV APPLE Start: 08-23-2018 PULSE OXIMETRY, CONTINUOUS JV APPLE Start: 08-23-2018 PULSE OXIMETRY, CONTINUOUS JV APPLE Start: 08-23-2018 IP CONSULT TO IV TEAM W MITCHEL ZECHARIAH Start: 08-23-2018 INCENTIVE SPIROMETRY RT JV APPLE [...] JV APPLE Start: 08-22-2018 VANCOMYCIN, TROUGH WASTae CASASAN Start: 08-22-2018 PULSE OXIMETRY, CONTINUOUS JV APPLE Start: 08-22-2018 PULSE OXIMETRY, CONTINUOUS JVMARISABEL APPLE Start: 08-21-2018 PULSE OXIMETRY, CONTINUOUS JV APPLE Start: 08-21-2018 Procalcitonin (pct) WAS Dieudonne CASASAN Start: 08-21-2018 PULSE OXIMETRY, CONTINUOUS JV APPLE [...] JV APPLE Start: 08-19-2018 Procalcitonin (pct) WAS Dieudonne APPLE Start: 08-19-2018 PULSE OXIMETRY, CONTINUOUS JV [...] 08-18-2018 PULSE OXIMETRY, CONTINUOUS JVMARISABEL APPLE Start: 08-17-2018 PULSE OXIMETRY, CONTINUOUS JVMARISABEL APPLE Start: 08-17-2018 Procalcitonin (pct) WAS MARISABEL [...] JV APPLE Start: 08-15-2018 TELEMETRY MONITORING BRITTA BRENDA APPLE Start: 08-15-2018 Cul bact xcpt urine blood/stool aerobic isol JV APPLE Start: 08-15-2018 ENCOURAGE DEEP BREAT KIERAR AND COUGHING JV APPLE Start: 08-15-2018 FULL CODE JV LEON N Start: 08-15-2018 INCENTIVE SPIROMETRY RT JV APPLE Start: 08-15-2018 INITIATE OXYGEN THER APY PROTOCOL JV APPLE Start: 08-15-2018 INTAKE AND OUTPUT JUJU APPLE Start: 08-15-2018 IP CONSULT TO INFECT IOUS DISEASES JVMARISABEL APPLE Start: 08-15-2018 Microscopic observat ion Gram [...] Treatment Date Care Activity Detail Author Start: 04-14-2030 Lipid panel Lipids [employer] Start: 11-14-2029 Lipid panel Lipids [facility] Start: 2029 Shingles Vaccine (1 of 2) Shingles Vaccine (1 of 2) [place] Start: 05-02-2029 Lipid panel Lipids [facility] [employer] Start: 12-10-2027 Screening for malignant neoplasm of colon [facility] Start: 04-12-2027 Lipid panel Lipids [employer] Start: 02-15-2027 Screening for malignant neoplasm of breast Breast cancer screen [facility] [employer] Start: 05-15-2026 GFR test (Diabetes, CKD 3-4, OR last GFR 15-59) GFR test (Diabetes, CKD 3-4, OR last GFR 15-59) [facility] Start: 05-14-2026 Lipid panel [facility] Start: 04-14-2026 GFR test (Diabetes, CKD 3-4, OR last GFR 15-59) GFR test (Diabetes, CKD 3-4, OR last GFR 15-59) [employer] Start: 04-14-2026 Hemoglobin A1c measurement A1C test (Diabetic or Prediabetic) [employer] Start: 04-11-2026 GFR test (Diabetes, CKD 3-4, OR last GFR 15-59) GFR test (Diabetes, CKD 3-4, OR last GFR 15-59) [employer] Start: 11-15-2025 Depression Monitoring Depression Monitoring [facility] Start: 11-14-2025 GFR test (Diabetes, CKD 3-4, OR last GFR 15-59) GFR test (Diabetes, CKD 3-4, OR last GFR 15-59) [facility] Start: 11-14-2025 Hemoglobin A1c measurement A1C test (Diabetic or Prediabetic) [facility] Start: 10-12-2025 End: 10-12-2025 Patient encounter procedure 10/12/2025 10:30 AM EST Office Visit [facility] [address] [place] [address] [place] [address] Sherman Adair MD [address] [place] [id number] [facility] Start: 10-11-2025 End: 10-11-2026 US Head and neck soft tissue US Soft Tissue Neck Imaging Routine Thyroid nodule Expected: 10/11/2025, Expires: 10/11/2026 [facility] Work Phone: Comment on above: Expected: 10/11/2025, Expires: Start: 07-27-2025 End: 07-27-2025 Patient encounter procedure 07/27/2025 11:00 AM EDT Office Visit [facility] [address] [place] [address] Felipe Adam MD [address] [place] [address] Return in about 3 months (around 07/19/2025). [facility] Comment on above: Return in about 3 months (around ). Start: 05-25-2025 Lipid panel Lipid screen [facility] [place], [place] Start: 05-17-2025 End: 05-17-2025 Patient encounter procedure 05/17/2025 1:20 PM EDT Office Visit [facility] [address] [place] [address] Tiffanie Casas MD [address] [facility] [address] [address] [facility] Start: 05-15-2025 End: 05-15-2025 Patient encounter procedure 05/15/2025 1:15 PM EDT Office Visit [facility] [address] [place] [address] Felipe Adam MD [address] [place] [address] Return in about 6 months (around 05/15/2025). [facility] Comment on above: Return in about 6 months (around 05/15/20). Start: 05-10-2025 GFR test (Diabetes, CKD 3-4, OR last GFR 15-59) GFR test (Diabetes, CKD 3-4, OR last GFR 15-59) [facility] Start: 05-05-2025 Influenza vaccination [facility] Start: 05-02-2025 Hemoglobin A1c measurement A1C test (Diabetic or Prediabetic) [facility] Start: 05-02-2025 End: 05-02-2025 Patient encounter procedure 05/02/2025 2:00 PM EDT Office Visit [facility] [address] [facility] [address] [place] [address] Fozia Meng, EMISSIONS REPAIR TECHNICIAN [address] [facility] [address] [place] [address] [facility] B Start: 05-01-2025 End: 05-01-2025 Patient encounter procedure 05/01/2025 4:00 PM EDT Office Visit [facility] [address] [place] [id number] Robbin Sánchez, DPM [address] [place] [address] [facility] Start: 04-20-2025 End: 04-20-2025 Patient encounter procedure 04/20/2025 12:45 PM EDT Office Visit [facility] [address] [place] [address] Robbin Sánchez, DPM [address] [place] [address] [facility] Comment on above: Arrived Start: 04-06-2025 End: 04-06-2025 Patient encounter procedure 04/06/2025 4:30 PM EDT Office Visit [facility] [address] [place] [address] Robbin Sánchez, DPM [address] [place] [address] [facility] Comment on above: Arrived Start: 04-06-2025 End: 04-06-2026 Creatinine [Mass/volume] in Serum or Plasma Creatinine, Serum Lab Routine Right foot pain Expected: 04/06/2025 (Approximate), Expires: 04/06/2026 [facility] Comment on above: Expected: 04/06/2025 (Approximate), Expi res: 04/06/2026 Start: 04-06-2025 End: 04-06-2026 MR Foot - right WO and W contrast IV MR foot right w and wo IV contrast Imaging STAT Right foot pain Expected: 04/06/2025, Expires: 04/06/2026 [facility] Work Phone: Comment on above: Expected: 04/06/2025, Expires: Start: 03-14-2025 End: 03-14-2025 Patient encounter procedure [facility] Start: 02-13-2025 End: 02-13-2025 Patient encounter procedure 02/13/2025 1:00 PM EDT Office Visit [facility] [address] [place] [address] Tiffanie Casas MD [address] [facility] [address] [facility], [place] [phone] [facility] Start: 01-27-2025 Depression Monitoring Depression Monitoring [facility] Start: 11-15-2024 End: 11-15-2024 Patient encounter procedure 11/15/2024 2:45 PM EST Office Visit [facility] [address] [phone] Felipe Adam MD [address] [phone] 6 mo [facility] Comment on above: 6 mo Start: 11-14-2024 End: 11-14-2024 Patient encounter procedure [facility] Comment on above: Arrived Start: 11-11-2024 End: 11-11-2024 Patient encounter procedure 11/11/2024 1:00 PM EST Office Visit [facility] [address] [phone] Felipe Adam MD [address] [place] [address] 6 mo [facility] Comment on above: 6 mo Start: 09-24-2024 Screening for malignant neoplasm of cervix [facility] Start: 09-14-2024 End: 09-14-2024 Patient encounter procedure 09/14/2024 11:20 AM EST Office Visit [facility] [address] [place] [address] Fozia Meng, EMISSIONS REPAIR TECHNICIAN [address], [facility] [address] [place] [address] Arrived [facility] Comment on above: Arrived Start: 09-08-2024 DTaP/Tdap/Td vaccine (2 - Td or Tdap) DTaP/Tdap/Td vaccine (2 - Td or Tdap) [facility] Start: 09-08-2024 DTaP/Tdap/Td vaccine (2 - Td) DTaP/Tdap/Td vaccine (2 - Td) [place] Start: 09-08-2024 Tetanus vaccination [facility] [facility] Start: 09-05-2024 End: 09-05-2024 Patient encounter procedure 09/05/2024 1:00 PM EST Office Visit [facility] [address] [place] [phone] Tiffanie Casas MD [address] [place] [address] [id number] [facility] Start: 08-18-2024 End: 08-18-2024 Patient encounter procedure 08/18/2024 1:30 PM EST Office Visit [facility] [address] [facility] 2nd [place] [address] Luis Mclean, PA-C [address] [facility] [address] [place] [address] 1 yr med chk [facility] Comment on above: 1 yr med chk Start: 08-02-2024 End: 08-02-2024 Patient encounter procedure 08/02/2024 10:45 AM EDT Office Visit [facility] [address] [place] [address] Lore Miles DO [address] [place] [address] [facility] Start: 07-11-2024 End: 07-11-2024 Telemedicine consultation with patient 07/11/2024 11:30 AM EDT Telemedicine [facility] [address], [place] [phone] Janel Allen, EMISSIONS REPAIR TECHNICIAN [address], [place] [address] [facility] 210 Start: 06-10-2024 End: 06-10-2024 Patient encounter procedure 06/10/2024 10:20 AM EDT Office Visit [facility] [address] [facility] [address] [place] [address] Tiffanie Casas MD [address] [facility] [address] [place], [place] [id number] Arrived [facility] Comment on above: Arrived Start: 06-05-2024 COVID-19 Vaccine ( season) COVID-19 Vaccine ( season) [facility] Start: 06-05-2024 COVID-19 Vaccine () COVID-19 Vaccine ( season) [facility] Start: 06-05-2024 Influenza vaccination Influenza Vaccine (#1) [facility] Start: 2024 Screening for malignant neoplasm of colon [facility] Start: 05-17-2024 GFR test (Diabetes, CKD 3-4, OR last GFR 15-59) GFR test (Diabetes, CKD 3-4, OR last GFR 15-59) [facility] Start: 05-14-2024 Diabetes screen Diabetes screen [facility] Start: 05-12-2024 End: 05-12-2024 Patient encounter procedure 05/12/2024 11:00 AM EDT Office Visit [facility] Part of [address] [address] Lina Echols MD 222 [facility] [address] [place] [address] BUCK (obstructive sleep apnea) [facility] Part of [facility] Comment on above: BUCK (obstructive sleep apnea) Start: 05-11-2024 Lipid panel Lipid screen [facility], [place] Start: 05-11-2024 Lipid screen Lipid screen [facility], [place] Start: 05-05-2024 Influenza vaccination Flu vaccine (#1) [facility] Start: 03-23-2024 Depression Monitoring Depression Monitoring [facility] Start: 02-06-2024 GFR test (Diabetes, CKD 3-4, OR last GFR 15-59) GFR test (Diabetes, CKD 3-4, OR last GFR 15-59) [facility] Start: 02-06-2024 Hemoglobin A1c measurement A1C test (Diabetic or Prediabetic) [facility] Start: 08-13-2023 End: 08-13-2023 [facility] Start: 06-22-2023 End: 06-22-2023 Patient encounter procedure 06/22/2023 11:15 AM EDT Office Visit [facility] [address] [place] [address] Felipe Adam MD [address] [place] [address] [facility] Start: 06-05-2023 Influenza vaccination Sequential Influenza Vaccine (Season Ended) [facility] Start: 05-05-2023 Influenza vaccination [facility] Start: 04-14-2023 End: 04-14-2023 Patient encounter procedure 04/14/2023 Office Visit Family Medicine Felipe Adam MD [address] [place] [id number] [facility] Start: 04-12-2023 Hemoglobin A1c measurement A1C test (Diabetic or Prediabetic) [facility] Start: 04-11-2023 Depression Monitoring Depression Monitoring [facility] Start: 04-11-2023 History and physical examination, annual for health maintenance Wellness Visit [facility] Start: 12-25-2022 End: 12-25-2022 Patient encounter procedure 12/25/2022 Office Visit Infectious Diseases Dav Hartman MD [address] [address] [facility]. Start: 09-24-[address] [facility] [place], [place] Start: 08-07-2022 End: 08-07-2022 Patient encounter procedure 08/07/2022 Office Visit Urology Luis Mclean PA-C [address] [facility] [place] [address] [facility] Start: 07-15-2022 End: 07-15-2022 Nursing evaluation of patient and report 07/15/2022 Nurse Only Family Medicine [facility] Start: 07-09-2022 End: 07-09-2022 Patient encounter procedure 07/09/2022 Appointment IP Unit Samantha Lino RD, LD [facility] Start: 06-05-2022 Influenza vaccination [facility] Start: 05-20-2022 Creatinine measurement [facility] Start: 05-20-2022 Potassium [Moles/volume] in Serum or Plasma Potassium [facility] Start: 05-20-2022 Potassium monitoring Potassium monitoring [facility] Start: 05-14-2022 Creatinine measurement Creatinine monitoring [facility] Work Phone: Start: 05-14-2022 Potassium monitoring Potassium monitoring [facility] Work Phone: Start: 05-05-2022 Influenza vaccination Flu vaccine (#1) [facility] Start: 03-20-2022 Screening for malignant neoplasm of cervix [facility] Start: 02-05-2022 End: 02-05-2022 Patient encounter procedure 02/05/2022 Appointment Physical Therapy Christel Donohue, PT [facility] Start: 02-03-2022 End: 02-03-2022 Patient encounter procedure [facility] Start: 01-30-2022 End: 01-30-2022 Patient encounter procedure [facility] Start: 01-29-2022 End: 01-29-2022 Patient [...] procedure 01/22/2022 Appointment Physical Therapy Beverly Rangel, SALES REPRESENTATIVE [employer] [facility] Start: 01-17-2022 End: 01-17-2022 Patient encounter procedure 01/17/2022 Appointment Physical Therapy Beverly Rangel, SALES REPRESENTATIVE [employer] [facility] Start: 01-10-2022 End: 01-10-2022 Patient encounter procedure 01/10/2022 Appointment Physical Therapy Christel Donohue, PT [facility] Start: 01-08-2022 End: 01-08-2022 Patient encounter procedure 01/08/2022 Appointment Physical Therapy Beverly Rangel, SALES REPRESENTATIVE [employer] [facility] Start: 01-02-2022 End: 01-02-2022 Patient encounter procedure 01/02/2022 Appointment Occupational Therapy Judi Marie OTA [address] [place] [address] [facility] Start: 12-31-2021 Diabetes screen Diabetes screen [place], [place] Start: 12-31-2021 End: 12-31-2021 Patient encounter procedure [facility] Start: 12-30-2021 End: 12-30-2021 Patient encounter procedure 12/30/2021 Appointment Occupational Therapy Lore Herman OT [facility] Start: 12-27-2021 End: 12-27-2021 Patient encounter procedure 12/27/2021 Appointment Occupational Therapy Eve Gaspar OTA [facility] Start: 11-14-2021 End: 11-14-2021 Patient encounter procedure 11/14/2021 Office Visit Family Medicine Felipe Adam MD [address] [place] [address] [phone] [facility] Start: 10-29-2021 Depression Monitoring Depression Monitoring [facility] Start: 09-16-2021 Creatinine measurement Creatinine monitoring [employer] Phone: Start: 09-16-2021 Potassium monitoring Potassium monitoring [employer] Phone: Start: 08-01-2021 End: 08-01-2021 Patient encounter procedure 08/01/2021 Office Visit Urology Lita Weeks MD 27 [facility], [address] [place] [address] [facility] Start: 06-05-2021 Influenza vaccination [facility] Start: 05-25-2021 Creatinine measurement Creatinine monitoring [facility] [place] Start: 05-25-2021 HbA1c (Bld) [Mass fraction] A1C test (Diabetic or Prediabetic) [facility] [place], [place] Start: 05-25-2021 Hemoglobin A1c measurement A1C test (Diabetic or Prediabetic) [employer] Phone: Start: 05-25-2021 Potassium monitoring [facility] [place], [place] Start: 11-13-2020 End: 11-13-2020 Office Visit 11/13/2020 Office Visit Family Medicine Felipe Adam MD [address] [place] [address] [facility] Start: 11-02-2020 Potassium monitoring Potassium monitoring [facility] [place], [place] Start: 10-23-2020 End: 10-23-2020 Office Visit 10/23/2020 Office [place] [address] [place] [address] [address] [place] [address] [phone] [facility]. Start: 09-24-2020 HbA1c (Bld) [Mass fraction] A1C test (Diabetic or Prediabetic) [facility] [place], [place] Start: 06-17-2020 Creatinine measurement Creatinine monitoring [facility] [place] Start: 06-17-2020 Creatinine monitoring Creatinine monitoring [facility] [place] , [place] Start: 06-17-2020 Potassium monitoring Potassium monitoring [facility] [place], [place] Start: 06-12-2020 End: 06-12-2020 Office Visit 06/12/2020 Office Visit Infectious Diseases Dav Hartman MD [address] [place], [place] [phone] [facility]. Start: 06-05-2020 Influenza vaccination Flu vaccine (#1) [place], [place] Start: 03-20-2020 Cervical cancer screen Cervical cancer screen [place], [place] Start: 03-20-2020 Screening for malignant neoplasm of cervix [facility] Start: 11-01-2019 End: 11-01-2019 Office Visit 11/01/2019 Office Visit Infectious Diseases Dav Hartman MD [address] [place] [address] [phone] [facility] Start: 07-28-2019 End: 07-28-2019 Office Visit 07/28/2019 Office Visit Infectious Dav Beaver MD [address] [place] [address] [phone] [facility] Start: 06-27-2019 End: 06-27-2019 Nurse Only 06/27/2019 Nurse Only Family Medicine [facility] Start: 06-05-2019 Influenza vaccination Flu vaccine (#1) [place], [place] Start: 06-05-2019 Influenza vaccination given SEQUENTIAL INFLUENZA VACCINE (Season Ended) [facility] Start: 2019 Screening for malignant neoplasm of breast [facility] Start: 06-05-2018 Influenza vaccination INFLUENZA VACCINE (#1) [facility] Work Phone: Start: 03-23-2018 End: 03-23-2018 Ambulatory [facility] Start: 2009 Screening for malignant neoplasm of cervix HPV (without or with Pap) [facility] Start: 2000 Screening for malignant neoplasm of cervix PAP SMEAR DISCUSSION [facility] Work Phone: Start: 1998 Hepatitis B vaccine (1 of 3 - 19+ 3-dose series) Hepatitis B vaccine (1 of 3 - 19+ 3-dose series) [facility] [employer] Start: 1998 Third diphtheria, tetanus and acellular pertussis (DTaP) vaccination TDAP (ADULT) [facility] Work Phone: Start: 1997 Hepatitis C screening Hepatitis C Screening [facility] Start: 1997 Tetanus vaccination TETANUS [facility] Work Phone: Start: 1995 COVID-19 Vaccine (1) COVID-19 Vaccine (1) [facility] Work Phone: Start: 1994 HIV screen HIV screen [facility] [place] Start: 1994 HIV screening HIV screen [facility] [employer] Start: 1992 HIV screening HIV SCREENING DISCUSSION [facility] Work Phone: Start: 1991 COVID-19 Vaccine (1) COVID-19 Vaccine (1) [facility] Work Phone: Start: 1991 Depression Monitoring Depression Monitoring [facility] [employer] Start: 1991 Depression screening using PHQ-9 (Patient Health Questionnaire 9) score [facility] Start: 1989 Urine screening for protein Urine Microalbumin [facility] Start: 1985 Pneumococcal Vaccine: Ped or At-Risk (1 - PCV) Pneumococcal Vaccine: Ped or At-Risk (1 - PCV) [facility] Start: 1984 COVID-19 Vaccine (1) COVID-19 Vaccine (1) [facility] Start: 1982 History and physical examination, annual for health maintenance Wellness Visit [facility] Start: 1979 COVID-19 Vaccine (#1) COVID-19 Vaccine (#1) [facility] [employer] Start: 1979 Hepatitis B vaccine (1 of 3 - 3-dose series) Hepatitis B vaccine (1 of 3 - 3-dose series) [facility] [employer] Start: 1979 Screening for malignant neoplasm of colon [facility] End: 02-13-2021 COVID-19 COVID-19 Lab Routine Suspected COVID-19 virus infection 1 Occurrences starting 02/13/2021 until 02/13/2021 [employer] Phone: Comment on above: 1 Occurrences starting 02/13/2021 until 02/13/2021 COVID-19 COVID-19 Lab Rou luis Suspected COVID-19 virus infection 02/13/2021 3:06 PM EDT [employer] Phone: End: 08-08-2020 COVID-19 Ambulatory COVID-19 Ambulatory Lab Routine SOB (shortness of breath) 1 Occurrences starting 08/08/2020 until 08/08/2020 [facility] [place] Comment on above: 1 Occurrences starting 08/08/2020 until 08/08/2020 COVID-19 Ambulatory COVID-19 Amb ulatory Lab Routine SOB (shortness of breath) 08/08/2020 4:[address] [facility] [place] End: 05-20-2021 Creatinine [Mass/volume] in Urine Creatinine, Random Urine Lab Routine Once for 1 Occurrences starting 05/20/2021 until 05/20/2021 [employer] Phone: Comment on above: Once for 1 Occurrences starting 05/20/20 21 until 05/20/2021 Creatinine [Mass/vol ume] in Urine Creatinine, Random Urine Lab Routine 05/20/2021 7:57 PM EDT [employer] Phone: End: 04-13-2021 Culture, Urine Culture, Urine Microbiology Routine Acute cystitis with hematuria 1 Occurrences starting 04/13/2021 until 04/13/2021 [employer] Phone: Comment on above: 1 Occurrences starting 04/13/2021 until 04/13/2021 Culture, Urine [employer] Phone: End: 05-27-2021 Culture, Urine Culture, Urine Microbiology Routine Difficult or painful urination 1 Occurrences starting 05/27/2021 until 05/27/2021 [employer] Phone: Comment on above: 1 Occurrences starting 05/27/2021 until 05/27/2021 End: 06-11-2021 Culture, Urine Culture, Urine Microbiology Routine Acute cystitis with hematuria Recurrent UTI 1 Occurrences starting 06/11/2021 until 06/11/2021 [employer] Phone: Comment on above: 1 Occurrences starting 06/11/2021 until 06/11/2021 End: 07-11-2021 Culture, Urine Culture, Urine Microbiology Routine Frequent UTI Urinary urgency Urinary frequency 1 Occurrences starting 07/11/2021 until 07/11/2021 [employer] Phone: Comment on above: 1 Occurrences starting 07/11/2021 until 07/11/2021 End: 08-01-2021 Culture, Urine Culture, Urine Microbiology Routine Frequent UTI Urinary urgency Urinary frequency 1 Occurrences starting 08/01/2021 until 08/01/2021 [employer] Phone: Comment on above: 1 Occurrences starting 08/01/2021 until 08/01/2021 End: 04-28-2022 Culture, Urine Culture, Urine Microbiology Routine Acute cystitis with hematuria 1 Occurrences starting 04/28/2022 until 04/28/2022 [employer] Phone: Comment on above: 1 Occurrences starting 04/28/2022 until 04/28/2022 End: 02-05-2023 Culture, Urine [employer] Phone: Comment on above: 1 Occurrences starting 02/05/2023 until 02/05/2023 End: 04-04-2025 Culture, Wound (with Gram Stain) [employer] Comment on above: One Time for 1 Occurrences starting 10/2024 until 04/04/2025 End: 02-15-2025 DBT Breast - bilateral screening [employer] Comment on above: 1 Occurrences starting 02/15/2025 until 02/15/2025 End: 04-12-2022 Hemoglobin A1c/Hemoglobin.total in Blood [employer] Phone: Comment on above: 1 Occurrences starting 04/12/2022 until 04/12/2022 End: 02-05-2023 Hemoglobin A1c/Hemoglobin.total in Blood [employer] Phone: Comment on above: Once for 1 Occurrences starting 02/06/20 until 02/05/2023 End: 08-29-2019 Home Sleep Study Home Sleep Study Sleep Center Routine One Time for 1 Occurrences starting 08/29/2019 until 08/29/2019 [employer] Comment on above: One Time for 1 Occurrences starting 08/06 until 08/29/2019 End: 09-24-2019 Methylmalonic Acid, Serum Methylmalonic Acid, Serum Lab Routine Once for 1 Occurrences starting 09/24/2019 until 09/24/2019 [employer] Phone: Comment on above: Once for 1 Occurrences starting 09/24/20 until 09/24/2019 Methylmalonic Acid, Serum Methyl malonic Acid, Serum Lab Routine 09/24/2019 9:33 AM [employer] Phone: End: 09-24-2019 Nuclear Ab [Titer] in Serum by Immunofluorescence ALICJA Lab Routine Once for 1 Occurrences starting 09/24/2019 until 09/24/2019 [employer] Phone: Comment on above: Once for 1 Occurrences starting 09/24/20 until 09/24/2019 Nuclear Ab [Titer] i n Serum by Immunofluorescence [facility] Lab Routine 09/24/2019 9:33 AM [employer] Phone: End: 05-20-2021 Protein, urine, random Protein, urine, random Lab Routine Once for 1 Occurrences starting 05/20/2021 until 05/20/2021 [employer] Phone: Comment on above: Once for 1 Occurrences starting 05/20/20 until 05/20/2021 Protein, urine, random Protein, urine, random Lab Routine 05/20/2021 7:57 PM EDT [employer] Phone: End: 12-14-2019 Sedimentation Rate Sedimentation Rate Lab Routine MRSA (methicillin resistant Staphylococcus aureus) septicemia (HCC) 1 Occurrences starting 12/14/2019 until 12/14/2019 [employer] Comment on above: 1 Occurrences starting 12/14/2019 until 12/14/2019 Sedimentation Rate Sedimentation Rate Lab Routine MRSA (methicillin resistant Staphylococcus aureus) septicemia (HCC) 12/14/2019 12:39 PM EDT [facility] [place] End: 09-24-2019 Sjogrens syndrome-A extractable nuclear antibody Sjogrens syndrome-A extractable nuclear antibody Lab Routine Once for 1 Occurrences starting 09/24/2019 until 09/24/2019 [employer] Phone: Comment on above: Once for 1 Occurrences starting 09/24/20 until 09/24/2019 Sjogrens syndrome-A extractable nuclear antibody Sjogrens syndrome-A extractable nuclear antibody Lab Routine 09/24/2019 9:33 AM [employer] Phone: End: 09-24-2019 Sjogrens syndrome-B extractable nuclear antibody Sjogrens syndrome-B extractable nuclear antibody Lab Routine Once for 1 Occurrences starting 09/24/2019 until 09/24/2019 [employer] Phone: Comment on above: Once for 1 Occurrences starting 09/24/20 until 09/24/2019 Sjogrens syndrome-B extractable nuclear antibody Sjogrens syndrome-B extractable nuclear antibody Lab Routine 09/24/2019 9:33 AM [employer] Phone: End: 09-12-2019 Sleep Study with PAP Titration Sleep Study with PAP Titration Sleep Center Routine One Time for 1 Occurrences starting 09/12/2019 until 09/12/2019 [employer] Phone: Comment on above: One Time for 1 Occurrences starting 06/2019 until 09/12/2019 End: 09-24-2019 Vitamin B6 Vitamin B6 Lab Routine Once for 1 Occurrences starting 09/24/2019 until 09/24/2019 [employer] Phone: Comment on above: Once for 1 Occurrences starting 09/24/20 until 09/24/2019 Vitamin B6 Vitamin B6 Lab R outine 09/24/2019 9:33 AM [employer] Phone: Immunizations Immunization Date Immunization Notes Care Provider Fa cilinaheed 12-05-2014 tetanus toxoid, redu gaby diphtheria toxoid, and acellular pertussis vaccine, adsorbed Felipe Back [facility] [place], [place] Payers Date Payer Category Payer Managed Care HMO (unspecified) [facility] HMO/CHOICE PLUS/DULCE/DULCE PLUS [id number] 2024 Private Health Insurance [id number] 2024 Private Health Insurance [id number]. [id number] 2024 Self-pay [id number] [phone] [id number] 2017 Blue Cross Blue Shie ld (Indemnity or Managed Care) - Out of State BCBS OUT OF STATE [facility] [id number] 2017 Unknown 2016 Unknown [id number] 2016 Unknown xxxxxxxxxxxxxxx [id number]. [id number] 2014 Medicaid [id number] 2.16.840.1.011916.3.249.13 2014 Medicaid [facility] MEDICAID [facility] xxxxxxxxxxx 2014-Present xxxxxxxxxxx [id number]. [id number] 1979 Unknown [id number] 2.16.840.1.023701.3.579.2.35 6 1979 Unknown [id number] 2.16.840.1.501208.3.579.2.35 6 1979 Unknown [id number] 2.16.840.1.898082.3.579.2.71 7 1979 Unknown [id number] 2.16.840.1.891454.3.579.2.71 7 1979 Unknown [id number] 2.16.840.1.352383.3.579.2.17 5 1979 Unknown [id number] 2.16.840.1.332628.3.579.2.90 3 1979 Unknown [id number] 2.16.840.1.871390.3.579.2.18 2 1979 Unknown [id number] 2.16.840.1.755717.3.579.2.18 5 1979 Unknown [id number] 2.16.840.1.522385.3.579.2.90 3 1979 Unknown [id number] 2.16.840.1.625322.3.579.2.59 3 1979 Unknown [id number] 2.16.840.1.437406.3.579.2.59 3 1979 Unknown [id number] 2.16.840.1.832089.3.579.2.59 3 1979 Unknown [id number] 2.16.840.1.590139.3.579.2.90 3 1979 Unknown [id number] 2.16.840.1.014652.3.579.2.90 3 1979 Unknown [id number] 2.16.840.1.186032.3.579.2.72 7 1979 Unknown [id number] 2.16.840.1.457189.3.579.2.12 59 1979 Unknown [id number] 2.16.840.1.893131.3.579.2.12 59 1979 Unknown [id number] 2.16.840.1.688841.3.579.2.12 59 1979 Unknown [id number] 2.16.840.1.102955.3.579.2.12 59 1979 Unknown [id number] 2.16.840.1.124053.3.579.2.12 59 1979 Unknown [id number] 2.16.840.1.272966.3.579.2.12 59 1979 Unknown [id number] 2.16.840.1.237010.3.579.2.12 59 1979 Unknown [id number] 2.16.840.1.938711.3.579.2.12 59 1979 Unknown [id number] 2.16.840.1.147171.3.579.2.12 59 1979 Unknown [id number] 2.16.840.1.354687.3.579.2.12 59 1979 Unknown [id number] 2.16.840.1.044240.3.579.2.17 4 1979 Unknown [id number] 2.16.840.1.757577.3.579.2.17 4 1979 Unknown [id number] 2.16.840.1.985808.3.579.2.17 4 1979 Unknown [id number] 2.16.840.1.048975.3.579.2.17 4 1979 Unknown [id number] 2.16.840.1.825350.3.579.2.17 4 1979 Unknown [id number] 2.16.840.1.452831.3.579.2.17 4 1979 Unknown [id number] 2.16.840.1.838833.3.579.2.17 4 1959 Unknown [id number] 1.2.840.359449.1.13.239.2.7. [id number] Unknown 114 Unknown [id number] 2.16.840.1.416551.3.579.2.53 1 Social History Date Type Detail Facility Start: 05-01-2015 End: 08-13-2023 Tobacco smoking status CAIS Never smoker [facility] Work Phone: Start: 1980 Sex Assigned At Not on file O [facility] Work Phone: Start: 05-27-2019 End: 11-15-2024 Alcohol intake No [place] Start: 12-13-2019 End: 04-18-2025 Alcohol intake Current non-drinker of alcohol (finding) [place] Start: 12-09-2019 End: 05-13-2021 History SDOH Financial 4 [place] Start: 12-09-2019 End: 05-20-2022 History SDOH Food Worry 1 [place] Start: 12-09-2019 History SDOH Transpo rt Med 2 [place] Start: 05-11-2020 End: 08-13-2023 Tobacco use and exposure Never used [employer], [employer] Start: 10-30-2021 End: 03-02-2023 Exposure to SARS-CoV-2 (event) Not sure [employer] Start: 1980 Sex Assigned At Female F [facility] Start: 05-20-2022 History SDOH Financial 3 [employer] Work Phone: Start: 01-06-2023 End: 11-15-2024 History of Social function [facility] How hard is it for y ou to pay for the very basics like food, housing, medical care, and heating Not very hard [employer] Patient Health Questionnaire 9 item (PHQ-9) total score [Reported] 0 [employer] (I/We) worried simon er (my/our) food would run out before (I/we) got money to buy more. Never true [employer] At any time in the p ast 12 months, were you homeless or living in fdc [including now]? No [employer] Start: 10-09-2020 Gender identity Identifies as female gender (finding) [employer] Start: 10-09-2020 Sexual orientation Heterosexual (fin artur) [employer] How hard is it for y ou to pay for the very basics like food, housing, medical care, and heating Somewhat hard [employer] Start: 06-10-2024 End: 04-06-2025 Alcoholic beverage intake Lifetime non-drinker (finding) [facility] Start: 08-19-2023 Alcohol Comment Caffeine Intak e: Yes, pop [facility] Start: 11-14-2012 Sex Female (finding) [employer] How often to you hav e a drink containing alcohol? Never [employer] Start: 04-20-2025 Alcoholic beverage intake Ex-drinker (finding) [facility] Start: 04-20-2025 Alcohol Comment 1-2 times a year [facility] NEGATED: Highlighted rowStart: NINF History of tobacco use Passive smoker [employer] Functional Status Date Assessment Result Facility [facility] Clinical Notes 12-23-2021 to 04-20-2025 RADHA GargM - 04/20/2025 12:45 PM EDT Note Date & Type Note Facility 04-20-2025 History of Presen t illness Narrative Celina Gaspar is a 44 y.o. female presents with chief complaint of Follow-up (RT foot pain/Review MRI results) HPI: HPI Review MRI results. Recheck RT toe 2 ulcer. She thinks it is improving and applies peroxide, neosporin and bandaid BID. She fell off knee scooter x 4 times [...] edema foot . ROM without crepitus. No new deformity Left Foot/Ankle Inspection and Palpation Ecchymosis: none [...] visit with xra documented in this encounter [facility] 04-14-2025 Evaluation note Diagnosis Chronic renal impairment, stage 3a (HCC)- Primary Depression with anxiety Dysthymic disorder Gastroesophageal reflux disease without esophagitis Esophageal reflux Vitamin D deficiency Unspecified vitamin D deficiency Mixed hyperlipidemia BUCK on CPAP Obstructive sleep apnea (adult) (pediatric) Restless legs Restless legs syndrome (RLS) Hyperglycemia Other abnormal glucose Hyperglycemia Other abnormal glucose Mixed hyperlipidemia Chronic renal impairment, stage 3a (HCC) documented in this encounter [facility]07-10-2025 Evaluation note* Diagnosis Chronic renal impairment, stage 3a (HCC)- Primary Depression with anxiety Dysthymic disorder Gastroesophageal reflux disease without esophagitis Esophageal reflux Vitamin D deficiency Unspecified vitamin D deficiency Mixed hyperlipidemia BUCK on CPAP Obstructive sleep apnea (adult) (pediatric) Restless legs Restless legs syndrome (RLS) Hyperglycemia Other abnormal glucose Pain in right foot Pain in limb documented in this encounter [facility]07-03-2025 History of Present illness Narrative* Robbin Sánchez DPM - 04/06/2025 4:30 PM EDT Celina Gaspar is a 44 y.o. female presents with chief complaint of Foot Ulcer (RT toe 2 ulcer) HPI: HPI Pt has ulcer on RT toe 2 for about 2 wks. She went to [facility] ER on 04-04-25, xrays, culture and put on Clindamycin 300mg TID x 10 days and Cipro 500mg BID x 10 days. She does not think it is improving. Denies any injury or pain due to neuropathy. It started one day from bad shoes and busy day 2wk ago. Rt foot pain midfoot/ankle at times- swelling incr in last month, denies trauma Resolved and healed left from Reconstruction sx as of october SUBJECTIVE: Review of Systems General: Chillsdenies. Feverdenies. [...] Daily RT cholecalciferol (Vitamin D-3) 50 MCG (1999 [place]) tablet Take by mouth diclofenac sodium 1 [...] SYMPTOMS: Review of Systems OBJECTIVE: Visit Vitals BP 118/80 Pulse 89 Ht 5' 2 Wt 210 lb BMI 38.41 kg/m Smoking Status Never BSA 2.04 m Physical Exam General General Appearance: appears stated age and healthy Orientation: alert and oriented to person, place, and time Right Foot/Ankle Inspection and Palpation Ecchymosis: none Tenderness: none Swelling: none Arch: normal Hammertoes: second toe, third toe, fourth toe and fifth toe Hallux valgus: no Hallux limitus: no Skin Exam: skin intact; 1cm full thickness wound 2nd toe, red and swelling reducing. Central sub q base, serous fluid reducing. [...] of Motion Normal right ankle ROM- midfoot warm with local edema foot more than ankle. ROM without crepitus. No new deformity Left Foot/Ankle Inspection and Palpation Ecchymosis: none Tenderness: none Swelling: none Arch: normal Hammertoes: second toe, third toe, fourth toe and fifth toe Claw toes: absent Hallux valgus: no Hallux limitus: no Skin Exam: skin intact; Atrophic skin and neg digital hair Neurovascular [...] 2nd toe with distal ulcer. Severe neuropathy Diagnoses and all orders for this visit: Right foot pain - XR foot 1 or 2 views right - MR foot right w and wo IV contrast; Future - Creatinine, Serum; Future Skin ulcer of toe of right foot with fat layer exposed (HCC) Infection of toe Idiopathic progressive polyneuropathy Generalized edema Poss Charcot rt midfoot reviewed:CHARCOT ACUTE: NWB planned with immobilization until inflammation resolved. Sugar control and calcium intake reviewed for improvement. Healing risks reviwed with poss toe or foot deformity and future wound difficulty and amputation mentioned in detail. Compliance concerns also addressed Begin Camwalker- MRI ordered w & w/o Risk of infection moving to midfoot also reviewed Daily cleanse and AB drsg planned. Call if any incr redness, swelling, pain or drainage. Risk of infection entering deep tissues or bone leading to amputation reviewed Rest needed and every day drsg with wound care reviewed. Caution with wound irritation reviewed Risks of infectioin and amputation discussed. Spreading infection possible to cause bone infection and vascular compromise Wound Debride: Sterile sharp debridement of wound including loose and necrotic tissue down to healthy viable tissue was performed. Topical lidocaine was not used for pain mngmt. Hemostasis was maintained by pressure and the wound was cleansed and DSD applied. Procedure was tolerated well Cultures pending MRI r/o osteomyelitis toe or midfoot but also Charcot MRI [facility] 04-11-25 11:30 AM, arrive at 11:00 AM. Pt notified. documented in this encounterOzarks Medical [id number] Evaluation note* Diagnosis Chronic renal impairment, stage 3a (HCC)- Primary Depression with anxiety Dysthymic disorder Gastroesophageal reflux disease without esophagitis Esophageal reflux Vitamin D deficiency Unspecified vitamin D deficiency Mixed hyperlipidemia BUCK on CPAP Obstructive sleep apnea (adult) (pediatric) Restless legs Restless legs syndrome (RLS) Hyperglycemia Other abnormal glucose Pressure injury of deep tissue of toe, unspecified laterality- Primary documented in this encounter [facility]06-10-2025 History of Present illness Narrative* Lynn Block MD - 03/14/2025 12:00 PM EDTAssociated Problem(s): BUCK (obstructive sleep apnea) (Continue PAP.) Discussed options, including BiPAP. Not clear at the moment that BiPAP is needed. Get data sheets for both 2023 sleep studies (NOT faxed). Get full reports for both 2018 sleep studies (NOT faxed). * Lynn Block MD - 03/14/2025 12:00 PM EDTAssociated Problem(s): Claustrophobia Add alprazolam 0.25 ahs. Orders: ALPRAZolam (Xanax) 0.25 MG tablet; Take 1 tab 30-45 min before PAP therapy nightly * Lynn Block MD - 03/14/2025 12:00 PM EDTAssociated Problem(s): Hypersomnia Discussed modafinil. May start 100 qam if/when desired., but first optimize PAP use. * Lynn Block MD - 03/14/2025 12:00 PM EDT Images from the original note were not included. Outpatient Progress Note Patient: Celina Dieudonne Julisa Dept: Neurology : 1980 Appt Date: 03/14/2025 Prev Appt: 12/06/2024 Chief Complaint Patient presents with Sleep Apnea Appointment Note -- 3 mo BUCK (obstructive sleep apnea) Submit for warranty replacement machine - pt's machine is recalled. Pt may need to ask [facility] Would continue with current (Dreamwear) mask. See below. Get all [facility] sleep studies (full). Weight loss. Claustrophobia (CMS/HCC) Once machine is received, pt to call for Rx alprazolam 0.25 hs for better tolerance of mask on face. Assessment and Plan - Assessment & Plan BUCK (obstructive sleep apnea) (Continue PAP.) Discussed options, including BiPAP. Not clear at the moment that BiPAP is needed. Get data sheets for both 2023 sleep studies (NOT faxed). Get full reports for both 2018 sleep studies (NOT faxed). Claustrophobia (CMS/HCC) Add alprazolam 0.25 ahs. Orders: ALPRAZolam (Xanax) 0.25 MG tablet; Take 1 tab 30-45 min before PAP therapy nightly Hypersomnia Discussed modafinil. May start 100 qam if/when desired., but first optimize PAP use. No orders of the defined types were placed in this encounter. 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 Lab Frequency Next Occurrence Therapeutic injection carpal tunnel Once 09/29/2024 History of Present Illness, Associated Treatments and Results - Dx BUCK . CLAUSTROPHOBIA . (PN . RLS) Tx OFF CPAP @ 12 (sertraline --psy/anxiety) (ropinirole --Casas) Aes Hx Download - reviewed. Use - good. Mask - tolerated, but sometimes still takes mask off. PAP improves sleep and diurnal wakefulness. Complains of some residual somnolence during the day. (RLS - per primary neurologist - Dr. Casas.) Failed Semeiol Snores. No one has observed for apnoeas. Awakens 2 x/night. Mouth dry AM. Unrested AM and all day. Could nap by 15:00. Weight difficult to control. Circad In bed 2300. Out of bed 0800. Noct oxim PSG (Andre/Suze) (BMI=39.1) - AHI=5.3, REM=21 vs 2.8, all supine; PLMI=3.6, PLMAI=0.6 (Andre, hanover) - MAINE=6.4, position not given PAPT (Andre/MahajanV) - AHI=1.8 @ 12 with REM; PLMI=0 (Andre/Ginger) (BMI=38.4) - AHI=4.6 @ 11 no REM, =4.4 @ 13 with REM; PLMI=12 MSLT MWT Imaging Testing Surgery [Other neurological issues per Dr. Peyman Casas.] Physical Exam - General appearance, mentation, extraocular movements, facial strength and movement, hearing, upper and lower extremity strength and tone, sensation to gross testing, coordination, and gait are normalor at baseline unless noted below. HEENT - ___, unchanged: ___, orig: Tongue tall, ridged ... Mallampati IV ... Jaw narrow, teeth crowded MS - ___, unchanged: ___, orig: ___ CNN - ___, unchanged: ___, orig: ___ Motor - ___, unchanged: ___, orig: ___ Sens - ___, unchanged: ___, orig: ___ Reflex - ___, unchanged: ___, orig: ___ Coord - ___, unchanged: ___, orig: ___ Gait - ___, unchanged: ___, orig: ___ Vestib - ___, unchanged: ___, orig: ___ MSK - ___, unchanged: ___, orig: Legs quite restless Other - ___, unchanged: ___, orig: ___ Vital Signs - Visit Vitals Ht 5' 2 Wt 210 lb BMI 38.41 kg/m Smoking Status Never BSA 2.04 m Review of Systems - . Const: Denies appetite change, fever, chills. Allergy: Denies medication reaction. Ocular: Denies visual acuity change. ENT: Denies hearing change. Endoc: Denies weight loss. Resp: Denies dyspnoea, wheezing. Cardiac: Denies angina, palpitations. GI: Denies nausea, vomiting. Haem: Denies bleeding. : Denies incontinence. MSK: Denies arthralgias, joint oedema. Derm: Denies rash, hair loss. Neuro: Denies ataxia, tremor. Also see HPI for elements of ROS documented therein and for details of positive findings, which shall supersede the foregoing. PMH, PSH, Allergies, FH, SH - Past Medical History: Diagnosis Date Back pain [...] once on left, twice on right CHOLECYSTECTOMY 2006 GALLBLADDER SURGERY HYSTERECTOMY TONSILLECTOMY 1984 Allergies Allergen Reactions Topamax [Topiramate] Made her feel overly thirsty and caused bad smell and taste. Chlorhexidine Rash Family History Problem Relation Name Age of Onset Hypertension Mother Diabetes Mother Lung disease Mother Lung cancer Mother Stroke Mother Heart disease Mother Hypertension Father Heart attack Father Other (Other) Son Syringomyelia Diabetes Maternal Grandmother Hypertension Maternal Grandmother Heart disease Maternal Grandmother Diabetes Maternal Grandfather Hypertension Maternal Grandfather Heart disease Maternal Grandfather Heart disease Paternal Grandmother Heart disease Paternal Grandfather Outpatient Encounter Medications as of 03/14/2025 Medication Sig Dispense Refill b complex vitamins capsule Take 1 capsule by mouth in the morning. baclofen (Lioresal) 10 MG tablet TAKE 2 TABLETS BY MOUTH AT BEDTIME FOR 30 DAYS 60 tablet 3 biotin 10 MG tablet 1 (one) time each day at the same time. calcium 500 MG tablet Take 1 tablet by mouth in the morning and 1 tablet before bedtime. cetirizine (ZyrTEC) 10 MG tablet Take 10 mg by mouth in the morning. cholecalciferol (Vitamin D-3) 50 MCG (1999) tablet Take by mouth. diclofenac sodium 1 % gel famotidine (Pepcid) 20 MG tablet Take 20 mg by mouth in the morning and 20 mg before bedtime. fluticasone (Flonase) 50 MCG/ACT nasal spray Administer 2 sprays into each nostril in the morning. gemfibrozil (Lopid) 600 MG tablet TAKE 1 TABLET TWICE A DAY 30 MINUTES BEFORE BREAKFAST AND SUPPER montelukast (Singulair) 10 MG tablet Take 1 tablet (10 mg) by mouth at bedtime 90 tablet 3 nortriptyline (Pamelor) 50 MG capsule Take 3 capsules (150 mg) by mouth at bedtime 270 capsule 3 pregabalin (Lyrica) 300 MG capsule Take 1 capsule (300 mg) by mouth in the morning and 1 capsule (300 mg) before bedtime. 180 capsule 3 Rimegepant Sulfate (Nurtec) 75 MG tablet dispersible Take 75 mg by mouth See administration instructions Take 1- 75mg tablet by mouth as needed at the onset of migraine. 16 tablet 11 rOPINIRole (Requip) 1 MG tablet Take 1 tablet (1 mg) by mouth in the morning and 1 tablet (1 mg) inthe evening and 1 tablet (1 mg) before bedtime. 270 tablet 3 sertraline (Zoloft) 100 MG tablet [DISCONTINUED] hydrOXYzine pamoate (Vistaril) 50 MG capsule Take 1 capsule (50 mg) by mouth as needed at bedtime for itching. 90 capsule 1 No facility-administered encounter medications on file as of 03/14/2025. Lynn Block M.D. [facility] ? [address] ? [place], [place] [address] ? ? fax Neurology ? Clinical Neurophysiology ? Epilepsy ? Sleep Disorders ? Clinical Informatics documented in this encounterOzarks Medical [id number] Evaluation note* Diagnosis Chronic renal impairment, stage 3a (HCC)- Primary Depression with anxiety Dysthymic disorder Gastroesophageal reflux disease without esophagitis Esophageal reflux Vitamin D deficiency Unspecified vitamin D deficiency Mixed hyperlipidemia BUCK on CPAP Obstructive sleep apnea (adult) (pediatric) Restless legs Restless legs syndrome (RLS) Hyperglycemia Other abnormal glucose Encounter for screening mammogram for malignant neoplasm of breast Other screening mammogram documented in this encounter [facility]05-12-2025 History of Present illness Narrative* Tiffanie Casas MD - 02/13/2025 1:00 PM EDT Images from the original note were not included. CHIEF COMPLAINT REASON FOR VISIT : Follow up HPI: Celina Gaspar is a 44 y.o. female who presents for a follow up. She states she has not had any falls but close calls. She states she is getting more burning, tingling, and numbness in her left foot.Since the surgery the neuropathy has been worse. She states it has been a year since she had her left sharko foot surgery. She states her feet seem to keep swelling. sometimes the neuropathy pains will wake her up at night or make it harder for her to fall asleep. She states sometimes she feels dizzy and unsteady she is afraid she going to fall. She states she does get some vertigo episodes.have been less frequent. Seems to come from her neck. 2 times a week on average has tinnitus & light sensitivity, not so much sound. Denies N/V Nurtec helps with 30 minutes CURRENT MEDICATIONS: ALLERGIES/DISCONTINUE MEDICATIONS Current Outpatient Medications Medication Instructions b complex vitamins capsule 1 capsule, Daily RT baclofen (Lioresal) 10 MG tablet TAKE 2 TABLETS BY MOUTH AT BEDTIME FOR 30 DAYS biotin 10 MG tablet Every 24 hours calcium 500 MG tablet 1 tablet, 2 times daily cetirizine (ZYRTEC) 10 mg, Daily RT cholecalciferol (Vitamin D-3) 50 MCG (1999) tablet Take by mouth. diclofenac sodium 1 % gel famotidine (PEPCID) 20 mg, 2 times daily fluticasone (Flonase) 50 MCG/ACT nasal spray 2 sprays, Daily gemfibrozil (Lopid) 600 MG tablet TAKE 1 TABLET TWICE A DAY 30 MINUTES BEFORE BREAKFAST AND SUPPER hydrOXYzine pamoate (VISTARIL) 50 mg, Oral, Nightly PRN montelukast (SINGULAIR) 10 mg, Oral, Nightly nortriptyline (PAMELOR) 150 mg, Oral, Nightly Nurtec 75 mg, Oral, See admin instructions, Take 1- 75mg tablet by mouth as needed at the onset of migraine. pregabalin (LYRICA) 300 mg, Oral, 2 times daily rOPINIRole (REQUIP) 1 mg, Oral, 3 times daily sertraline (Zoloft) 100 MG tablet Allergies Allergen Reactions Topamax [Topiramate] Made her feel overly thirsty and caused bad smell and taste. Chlorhexidine Rash Medications Discontinued During This Encounter Medication Reason rOPINIRole (Requip) 0.5 MG tablet Reorder nortriptyline (Pamelor) 50 MG capsule Reorder PAST MEDICAL HISTORY: SURGICAL/SOCIAL/FAMILY HISTORY DEPRESSION SCREEN: [...] Paternal Grandmother Heart disease Paternal Grandfather Depression: Not at risk (11/15/2024) Received from [facility] PHQ-2 PHQ-9 Total Score: 0 REVIEW OF SYMPTOMS: Review of Systems Constitutional: Negative for chills, diaphoresis, fatigue and fever. HENT: Negative for ear pain, tinnitus and trouble swallowing. Eyes: Negative for photophobia and visual disturbance. Respiratory: Negative for cough and shortness of breath. Cardiovascular: Negative for palpitations and leg swelling. Gastrointestinal: Negative for abdominal pain and nausea. Genitourinary: Negative for difficulty urinating and urgency. Musculoskeletal: Positive for gait problem. Negative for arthralgias, back pain, myalgias, neck pain and neck stiffness. Neurological: Positive for dizziness, numbness and headaches. Negative for tremors, weakness and light-headedness. Psychiatric/Behavioral: Negative for agitation, confusion and suicidal ideas. OBJECTIVE: 12/06/2024 1:00 PM 11/14/2024 11:31 AM 09/14/2024 11:30 AM Vitals BMI 38.41 kg/m2 37.9 kg/m2 39.91 kg/m2 BSA (m2) 2.04 m2 2.03 m2 2.08 m2 Systolic 134 140 Diastolic 80 70 Height (in) 5' 2 5' 2 5' 2 Weight (lb) 210 207.2 218.2 Visit Report Report Report Report EXAM: Neurological Exam Mental Status Awake, alert and oriented to person, place and time. Oriented to person, place and time. Recent andremote memory are intact. Speech is normal. Language [...] reflexes: Goyo's absent. Ankle clonus absent. Coordination Inmlmm-or-bobj, rapid alternating movements and [id number] normal bilaterally without dysmetria. Gait Normal casual, toe, heel and tandem gait. Romberg is absent. 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 She continues to have significant discomfort in her feet to interrupt her sleep. This is likely worsened by Vctcqsd-Ncava-Osmec for which she had surgery in February of thisyear. She is not having good healing and they are talking about a bone stimulator. She is on Lyricaat max doses due to chronic kidney disease. Pamelor does seem to offer benefit. Patient had bilateral carpal tunnel release which did not offer any significant benefit. She is on pregabalin as well as Pamelor for neuropathic pain. She is not wearing her splints and I recommended that she do this atnight to keep this from getting worse. We could consider carpal tunnel injections. When she wants them. Patient continues to have restless legs syndrome. She takes Requip 3 times a day which does offer some benefit. She thinks this is more due to discomfort in her feet rather than true restlessness. Stable. She has a long history of migraine headaches and still has persistent headaches 2 to 3 times a week but they are less severe. She did not tolerate Topamax. Headaches are likely worsened by untreated sleep apnea. Pamelor does offer some benefit. Hopefully by treating her sleep apnea she will see improvement in this as well. She has tried: topamax (SE), zanaflex( SE), zoloft, Naltrexone. She is on Nurtec, Pamelor, lyrica and baclofen, Patient has a obstructive sleep apnea with AHI 29 on recent CPAP titration study. Recommendation for CPAP with 12 cm H20 and heated humidification. I gave her an order for her CPAP machine and equipment including a DreamWear nasal mask as she did not tolerate nasal pillows. She will take this to [facility] in [place]. We will get the original sleep study from [facility] for review. She is following with Dr. Block for sleep medicine. EVALUATION: PSG 03/2024 - CPAP [id number] w/heated humidification EMG of BUE 11/25 showed moderate to severe CTS. Had release done without benefit. Repeat LUE in 2021unchanged EMG BLE 2019 showed motor > sensory neuropathy, moderate in degree. 2021 BLE showed moderate bilateral L5 radiculopathy MRI thoracic spine 08/2022 multiple level DDD without stenosis. Small hemangioma at T5 MRI lumbar spine 2021 - mild DDD at L4/5 MRI cervical spine 10/2023 - At C5-C6, there is a disc-osteophyte complex creating effacement of theventral aspect of the thecal sac and overall mild spinal canal stenosis. It is difficult to definitively characterize whether there is mild impression on the ventral aspect of the spinal cord given the degree of motion artifact. There is left-sided uncovertebral joint and facet hypertrophy creatingmild left neural foraminal stenosis. At C6-C7, there is a disc-osteophyte complex with central discprotrusion creating effacement of the ventral aspect of the thecal sac, overall mild spinal canal stenosis and probable mass effect/impression on the ventral spinal cord (series 5, image 8 and series7, image 18). There is mild bilateral uncovertebral joint and facet hypertrophy creating mild bilateral neural foraminal stenosis. There may be focal hyperintense intramedullary STIR/T2 signal at theC6-C7 level as on series 8, image 9 and series 10 images 18-21). At C7-T1, there is no significant spinal canal stenosis. There is left-sided uncovertebral joint and facet hypertrophy creating probable mild left-sided neural foraminal stenosis. Diagnoses and all orders for this visit: Charcot's joint, left ankle and foot Gait instability I will place Ambulatory referral to Physical Therapy; Future Idiopathic progressive polyneuropathy Increase nortriptyline (Pamelor) 50 MG capsule; Take 3 capsules (150 mg) by mouth at bedtime for neuropathic pain. Continue Lyrica 300 mg BID-cannot go high due to CKD Obtained [facility] report and personally reviewed and reviewed with the patient Continue biotin 10 mg daily for neuropathy Continue baclofen 10 mg for radiculopathy Intractable 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 (CMS/HCC) Continue nurtec 75 mg once prn for acute treatment of migraines. Samples provided. Restless legs Increase rOPINIRole (Requip) 1 MG tablet; Take 1 tablet (1 mg) by mouth in the morning and 1 tablet(1 mg) in the evening and 1 tablet (1 mg) before bedtime for restless legs. I counseled the patient on the possible side effects and interactions of medications. Obstructive sleep apnea Follows with Dr. Block. Bilateral carpal tunnel syndrome Consider carpal tunnel injections Consider BTX or injectable CGRP Follow up 3 months. This note was scribed by CHILO Hernandez acting under the direction of Tiffanie Casas MD. The content has been reviewed and confirmed for accuracy by Tiffanie Casas MD documented in this encounterOzarks Medical [id number] History of Present illness Narrative* Lynn Block MD - 12/06/2024 12:30 PM ESTAssociated Problem(s): BUCK (obstructive sleep apnea) Orders: Ambulatory referral to Neurology * Lynn Block MD - 12/06/2024 12:30 PM ESTAssociated Problem(s): BUCK (obstructive sleep apnea) Submit for warranty replacement machine - pt's machine is recalled. Pt may need to ask [facility] Would continue with current (Dreamwear) mask. See below. Get all [facility] sleep studies (full). Weight loss. * Lynn Block MD - 12/06/2024 12:30 PM ESTAssociated Problem(s): Claustrophobia (CMS/HCC) Once machine is received, pt to call for Rx alprazolam 0.25 hs for better tolerance of mask on face. * Lynn Block MD - 12/06/2024 12:30 PM EST Images from the original note were not included. Outpatient Progress Note Patient: Celina Gaspar Dept: Neurology : 1980 Appt Date: 12/06/2024 Prev Appt: Visit date not found Chief Complaint Patient presents with Sleep Apnea Appointment Note -- BUCK--On CPAP Assessment and Plan - Assessment & Plan BUCK on CPAP Orders: Ambulatory referral to Neurology BUCK (obstructive sleep apnea) Submit for warranty replacement machine - pt's machine is recalled. Pt may need to ask [facility] Would continue with current (Dreamwear) mask. See below. Get all [facility] sleep studies (full). Weight loss. Claustrophobia (CMS/HCC) Once machine is received, pt to call for Rx alprazolam 0.25 hs for better tolerance of mask on face. No orders of the defined types were placed in this encounter. Follow-Up - Follow up in about 3 months (around 03/08/2025). Lab Frequency Next Occurrence Therapeutic injection carpal tunnel Once 09/29/2024 History of Present Illness, Associated Treatments and Results - Dx BUCK . CLAUSTROPHOBIA . (PN . RLS) Tx OFF CPAP @ 12 since recall (ropinirole --Augusto) Aes Hx Download - not received. Use - none. Mask - not tolerated. PAP improves sleep and diurnal wakefulness. Pt''s CPAP machine is pre-recall, has been unused since recall. PT found the mask aggravating, would push it off her face. (RLS - per primary neurologist - Dr. Casas.) Failed Semeiol Snores. No one has observed for apnoeas. Awakens 2 x/night. Mouth dry AM. Unrested AM and all day. Could nap by 15:00. Weight difficult to control. Circad In bed 2300. Out of bed 0800. Noct oxim PSG (Andre/Suze) (BMI=39.1) - AHI=5.3, REM=21 vs 2.8, all supine; PLMI=3.6, PLMAI=0.6 (Andre, dave) - MAINE=6.4, position not given PAPT (Andre/Suze) - AHI=1.8 @ 12 with REM; PLMI=0 (Andre/Ginger) (BMI=38.4) - AHI=4.6 @ 11 no REM, =4.4 @ 13 with REM; PLMI=12 MSLT MWT Imaging Testing Surgery Physical Exam - General appearance, mentation, extraocular movements, facial strength and movement, hearing, upper and lower extremity strength and tone, sensation to gross testing, coordination, and gait are normalor at baseline unless noted below. HEENT - ___, unchanged: ___, orig: Tongue tall, ridged ... Mallampati IV ... Jaw narrow, teeth crowded MS - ___, unchanged: ___, orig: ___ CNN - ___, unchanged: ___, orig: ___ Motor - ___, unchanged: ___, orig: ___ Sens - ___, unchanged: ___, orig: ___ Reflex - ___, unchanged: ___, orig: ___ Coord - ___, unchanged: ___, orig: ___ Gait - ___, unchanged: ___, orig: ___ Vestib - ___, unchanged: ___, orig: ___ MSK - ___, unchanged: ___, orig: Legs quite restless Other - ___, unchanged: ___, orig: ___ GENERAL EXAMINATION Appearance: in no acute distress, well developed, well nourished. Head: normocephalic, atraumatic. Eyes: pupils equal, round, reactive to light and accommodation. Ears: normal. Mouth: mucosa moist. Throat: clear. Neck: neck supple, full range of motion, no cervical lymphadenopathy. Skin: no suspicious lesions, warm and dry. Heart: no murmurs, regular rate and rhythm, S1, S2 normal. Lungs: clear to auscultation bilaterally. Abdomen: normal, bowel sounds present, soft, nontender, nondistended. Extremities: no clubbing, cyanosis, or edema. NEUROLOGICAL EXAMINATION Mental Status: The patient is alert and oriented to person, place, and time. Except as noted, thought content, form, and comprehension was normal. Phonation, articulation, resonance, and prosody are normal. Cranial Nerves: Pupils were 4.0 millimeters, equal, round, and reactive to light and accommodation,both directly and consensually. Visual bueno were full by confrontation. There was no ptosis; extra-ocular movements were full; and there was no nystagmus. Funduscopic exam is normal. Masseters are of normal strength. Facial movement is normal. Hearing is grossly intact. There is no dysarthria. The gag reflex is equal bilaterally. Sternocleidomastoids and trapezii are of normal strength. The tongue protrudes in the midline. 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 Tone is normal. Muscle bulk is normal. Fasciculations are not seen . Pronator drift was not evident. Sensory: Sensation to touch, temperature, and vibration was normal in the arms, legs and face. Romberg is negative. Reflexes: Biceps, triceps, brachioradialis are 2/4 bilaterally. Patellar and Achilles reflexes are 2/4 bilaterally. Plantar responses were flexor bilaterally. Coordination: Dysmetria and dysdiadochokinesia are absent. Tremor is absent; dystonia is absent; chorea is absent. Gait And Station: Station and gait are normal. Apraxia and spasticity are not evident. Arm swing isnormal. Toe, heel, and tandem walking are performed without difficulty. Musculoskeletal: Trigger-point tenderness was absent. There is no spasm of the trapezii or paraspinals. Vital Signs - Visit Vitals Ht 5' 2 Wt 210 lb BMI 38.41 kg/m Smoking Status Never BSA 2.04 m Review of Systems - . Const: Denies appetite change, fever, chills. Allergy: Denies medication reaction. Ocular: Denies visual acuity change. ENT: Denies hearing change. Endoc: Denies weight loss. Resp: Denies dyspnoea, wheezing. Cardiac: Denies angina, palpitations. GI: Denies nausea, vomiting. Haem: Denies bleeding. : Denies incontinence. MSK: Denies arthralgias, joint oedema. Derm: Denies rash, hair loss. Neuro: Denies ataxia, tremor. Also see HPI for elements of ROS documented therein and for details of positive findings, which shall supersede the foregoing. PMH, PSH, Allergies, FH, SH - Past Medical History: Diagnosis Date Back pain [...] once on left, twice on right CHOLECYSTECTOMY 2006 GALLBLADDER SURGERY HYSTERECTOMY TONSILLECTOMY 1984 Allergies Allergen Reactions Topamax [Topiramate] Made her feel overly thirsty and caused bad smell and taste. Chlorhexidine Rash Family History Problem Relation Name Age of Onset Hypertension Mother Diabetes Mother Lung disease Mother Lung cancer Mother Stroke Mother Heart disease Mother Hypertension Father Heart attack Father Other (Other) Son Syringomyelia Diabetes Maternal Grandmother Hypertension Maternal Grandmother Heart disease Maternal Grandmother Diabetes Maternal Grandfather Hypertension Maternal Grandfather Heart disease Maternal Grandfather Heart disease Paternal Grandmother Heart disease Paternal Grandfather Outpatient Encounter Medications as of 12/06/2024 Medication Sig Dispense Refill b complex vitamins capsule Take 1 capsule by mouth in the morning. baclofen (Lioresal) 10 MG tablet TAKE 2 TABLETS BY MOUTH AT BEDTIME FOR 30 DAYS 60 tablet 3 biotin 10 MG tablet 1 (one) time each day at the same time. calcium 500 MG tablet Take 1 tablet by mouth in the morning and 1 tablet before bedtime. cetirizine (ZyrTEC) 10 MG tablet Take 10 mg by mouth in the morning. cholecalciferol (Vitamin D-3) 50 MCG (2000 UT) tablet Take by mouth. diclofenac sodium 1 % gel famotidine (Pepcid) 20 MG tablet Take 20 mg by mouth in the morning and 20 mg before bedtime. fluticasone (Flonase) 50 MCG/ACT nasal spray Administer 2 sprays into each nostril in the morning. gemfibrozil (Lopid) 600 MG tablet TAKE 1 TABLET TWICE A DAY 30 MINUTES BEFORE BREAKFAST AND SUPPER hydrOXYzine pamoate (Vistaril) 50 MG capsule Take 1 capsule (50 mg) by mouth as needed at bedtime for itching. 90 capsule 1 montelukast (Singulair) 10 MG tablet Take 1 tablet (10 mg) by mouth at bedtime 90 tablet 3 nortriptyline (Pamelor) 50 MG capsule Take 2 capsules (100 mg) by mouth at bedtime 180 capsule 3 pregabalin (Lyrica) 300 MG capsule Take 1 capsule (300 mg) by mouth in the morning and 1 capsule (300 mg) before bedtime. 180 capsule 3 Rimegepant Sulfate (Nurtec) 75 MG tablet dispersible Take 75 mg by mouth See administration instructions Take 1- 75mg tablet by mouth as needed at the onset of migraine. 16 tablet 11 rOPINIRole (Requip) 0.5 MG tablet Take 1 tablet (0.5 mg) by mouth in the morning and 1 tablet (0.5 mg) in the evening and 1 tablet (0.5 mg) before bedtime. 270 tablet 3 sertraline (Zoloft) 100 MG tablet No facility-administered encounter medications on file as of 12/06/2024. Lynn Block M.D. [facility] ? [address] ? [place] [address] ? ? fax Neurology ? Clinical Neurophysiology ? Epilepsy ? Sleep Disorders ? Clinical Informatics documented in this encounterOzarks Medical [id number] Telephone encounter Note* Telephone Encounter - Janel Allen NP - 11/02/2024 9:16 PM EST Pharmacy sends medication clarification for nortriptyline as there are two directions on one received. Per ONUR Gunderson plan increase nortriptyline 50 mg 2 daily/bedtime total of 100 mg. [facility] [id number] Miscellaneous Notes* Telephone Encounter - Janel Allen NP - 11/02/2024 9:16 PM EST Pharmacy sends medication clarification for nortriptyline as there are two directions on one received. Per ONUR Gunderson plan increase nortriptyline 50 mg 2 daily/bedtime total of 100 mg. documented in this encounterOzarks Medical [id number] NoteOPG [address] (11) [facility] [address] [facility] [address] Dept: [phone] Loc: [phone] MD Celina Browne 44 y.o. female Patient [...] Resource Strain: Medium Risk (05/08/2024) Received from [facility] Overall Financial Resource Strain (CARDIA) Difficulty of Paying Living Expenses: Somewhat hard Food Insecurity: No Food Insecurity (05/08/2024) Received from [facility] Hunger Vital Sign Worried About Running Out of Food in the Last Year: Never true Ran Out of Food in the Last Year: Never true Transportation Needs: Unknown (05/08/2024) Received from [facility] PRAPARE - Transportation Lack of Transportation (Non-Medical): No Housing Stability: Unknown (05/08/2024) Received from [facility] Housing Stability Vital Sign Unstable Housing [...] flow from Felipe's ducts, no stones of Loudon's ducts Temporomandibular Joint: no crepitus with motion, no tenderness on palpation, no mayo (more content not included)...[facility] [id number] History of Present illness Narrative* Sherman Adair MD - 10/11/2024 10:05 AM EST [facility] [address] [facility] (11) [facility] [address] [facility] [address] Dept: [phone] Loc: [phone] MD Celina Browne 44 y.o. female Patient [...] mg total) by mouth nightly ., Disp: ,Rfl: pregabalin (LYRICA) 300 MG capsule, Take 1 (one) capsule (300 mg total) by mouth 2 (two) times a day ., Disp: , Rfl: rOPINIRole (REQUIP) 1 MG tablet, Take 1 (one) tablet (1 mg total) by mouth 3 (three) times a day .,Disp: , Rfl: sertraline (ZOLOFT) 100 MG tablet, [...] Resource Strain: Medium Risk (05/08/2024) Received from [facility] Overall Financial Resource Strain (CARDIA) Difficulty of Paying Living Expenses: Somewhat hard Food Insecurity: No Food Insecurity (05/08/2024) Received from [facility] Hunger Vital Sign Worried About Running Out of Food in the Last Year: Never true Ran Out of Food in the Last Year: Never true Transportation Needs: Unknown (05/08/2024) Received from [facility] PRAPARE - Transportation Lack of Transportation (Non-Medical): No Housing Stability: Unknown (05/08/2024) Received from [facility] Housing Stability Vital Sign Unstable Housing [...] tenderness of submandibular glands, no masses of subma ndibular glands, clear salivary flow from Felipe's ducts, no stones of Felipe's ducts Temporomandibular Joint: no crepitus with motion, [...] and prior ultrasound of this area was alsoconsistent with this etiology. No treatment is indicated [...] signature was used to authenticate this note. * Oxana Potts MA - 10/11/2024 9:38 AM EST Review of Systems Constitutional: Negative. HENT: Positive for congestion, ear pain, postnasal drip, sinus pressure, sinus pain, tinnitus and trouble swallowing. Eyes: Positive for visual disturbance. Respiratory: Positive for choking. Cardiovascular: Negative. Gastrointestinal: Negative. Endocrine: Negative. Genitourinary: Negative. Musculoskeletal: Negative. Skin: Negative. Allergic/Immunologic: Positive for environmental allergies. Neurological: Positive for dizziness, light-headedness and headaches. Hematological: Negative. Psychiatric/Behavioral: Negative. documented in this [id number] Telephone encounter Note* Telephone Encounter - Gwen Fan - 09/14/2024 2:18 PM EST Voicemail Received: Our numbers [phone] actually have a question regarding a prescription that was prescribed today, If someone could please call me back. Thank you. Rosa Isela. [facility] [id number] Miscellaneous Notes* Telephone Encounter - Gwen Fan - 09/14/2024 2:18 PM EST Voicemail Received: Our numbers [phone] actually have a question regarding a prescription that was prescribed today, If someone could please call me back. Thank you. Bye. documented in this encounterOzarks Medical CenterWquozcxvxq05-43-2119 Miscellaneous Notes* Telephone Encounter - My Johnson - 08/11/2024 12:03 PM EST Patient called and requested refill of Lyrica to be sent to [facility] in [place]. documented in this encounterOzarks Medical CenterTlmmldlzqd83-07-1694 Telephone encounter Note* Telephone Encounter - My Johnson - 08/11/2024 12:03 PM EST Patient called and requested refill of Lyrica to be sent to [facility] in [place]. [facility] CenterMimwmxcbhd28-18-1772 History of Present illness Narrative* Tequila Obando MA - 06/10/2024 10:20 AM EDT Images from the original note were not included. CHIEF COMPLAINT REASON FOR VISIT: neuropathy, sleep HPI: Celina Gaspar is a 44 y.o. female who presents for a follow up. 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 She still has boot on. She did see Dr. Ginger matt consultation. She did get replacement cpap machine. [...] Grandfather Depression: At risk (01/28/2024) Received from [facility] PHQ-2 PHQ-9 Total Score: 6 REVIEW [...] Oriented to person, place and time. Recent andremote memory are intact. Speech is normal. Language [...] reflexes: Goyo's absent. Ankle clonus absent. Coordination Vbxsqx-ia-lzua, rapid alternating movements and jivu-ox-hapb normal bilaterally without dysmetria. Gait Normal casual, [...] Follow up 3 months. documented in this encounterOzarks Medical CenterCqhqnmnjzj80-94-2552 History of Present illness Narrative* Lore Miles, DO - 05/10/2024 2:00 PM EDT Images from the original note were not [...] a time that her throat closed and shecould not talk or get it open for [...] like to try a different mask. She maybenefit from more of a DreamWear type of [...] was counseled on the risks of stroke, MN, and sudden with BUCK, along with the [...] to clinic: 3-6 months documented in this encounterOzarks Medical CenterFmrpvzekaj66-53-1301 History of Present illness Narrative* MASSIMO Shook DPM - 03/03/2023 3:21 PM EDT Images from the original note were not included. NEW Patient Visit MASSIMO Shook DPM Patient Name: Celina Gaspar. . Date of : 1980, 42 y.o.. Gender: female. Subjective: Patient is a pleasant 42-year-old female who presents to clinic today with complaints of left foot pain. 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 Shefollows with an outside provider in [place] and was immobilized for an extended period [...] vomiting or chest pain or shortness of breath.Patient with no acute complaints this time. Past [...] Sitting, BP Cuff Size: Adult) Pulse 94 Temp98.5 F (36.9 C) (Infrared) General Appearance: Alert, [...] top of the rear foot. Collapse at thenaviculocuneiform joint. Decrease in calcaneal inclination angle and [...] I believe this to be continuing to remodel.Patient does have mild pain on occasion with ambulation. Rx for 3 pairs of accommodative inserts. Patient is a nondiabetic but would benefit from multiple pairs of accommodative orthotics secondaryto the severe deformity of her foot. This [...] can call to make an appointment. Patient tofollow-up in 6 months or as needed at this point. This note was partially created using voice recognition software and is inherently subject to errors including those of syntax and sound-alike substitutions which may escape proofreading. In such instances, original meaning may be extrapolated by contextual derivation. MASSIMO Shook DPM Podiatric Foot & Ankle Surgery documented in this [id number] NotePROCEDURE: XR ANKLE LT MIN 3 V, XR [...] Electronically authenticated by: PIPER MERCEDES Date: 2023-01-29 07:05[facility]04-27-2023 NotePROCEDURE: XR ANKLE LT MIN 3 V, XR [...] Electronically authenticated by: PIPER MERCEDES Date: 2023-01-29 07:05[facility]10-05-2022 History of Present illness Narrative* Samantha Lino RD, LD - 07/09/2022 10:00 AM EDT MNT provided for Prediabetes Food and nutrition-related [...] BMR: 1573 calories Est. total calorie needs: ~0525-1778 Lab Results Component Value Date/Time TRIG 460 [...] Use of whole grains, whole fruits and vegetablesappear less than recommended quantities. Celina has been trying to incorporate more fruits and vegetables into her diet. A barrier for her is she hates to cook. There is an excess of carbohydrates (used to drink regular Pepsi, states she has been drinking it since she was a baby-family put it in hersippy cup, likes carbs per recall. She switched [...] bread Supper: pork chop or chicken, homemade maori fries, mashed, or baked potato with broccoli [...] etc.), plate method (half of 9 plate withnon starchy vegetables such as broccoli or cauliflower, with protein item such as chicken and ,starch option such as a potato sharing a quarter of the plate each) importance of consuming protein and carbohydrate foods together (for meal and snack satiety), cooking methods (baking broiling, grilling), importance of eating meals slowly, and importance of not eating in front of a TV or computer werediscussed with Celina. Celina asked numerous questions during [...] session duration: 55 minutes. documented in this encounterSent[facility] Phone: 1(180) 942-882305-04-2022 History of Present illness Narrative* Christel Donohue, PT - 02/05/2022 9:[address] [facility] Date: 02/05/2022 Patient Name: Celina Gaspar : 1980 Pt No Showed Appt- Follow up call, left message on voicemail that patient discharged, but to call if has questions or concerns. Christel Donohue, PT Date: 02/05/2022 documented in this [facility] Phone: 1(985) 264-614105-04-2022 Hospital course Narrative* Christel Donohue, PT - 02/05/2022 9:45 AM EDT Images from the original note were not included. [facility] Discharge Summary Patient: [...] Donohue, PT Date: 02/05/2022 documented [facility] this [facility] Phone: 1(171) 147-544305-02-2022 History of Present illness Narrative* Jerica Jamila Melgar - 02/03/2022 10:[address] [facility] Date: 02/03/2022 Patient Name: Celina Gaspar : 1980 Pt Cancelled Appt due to no reason for cancel. Jerica Melgar Date: 02/03/2022 documented in this encounterKing[facility] Phone: [phone] 635-672904-27-2022 History of Present illness Narrative* Beverly Rangel, JENNIFER - 01/29/2022 9:00 AM EDT Images from the original note were not included. [facility] Daily Note Date: 01/29/2022 Patient Name: Celina Gaspar : 1980 (41 y.o.) Referring Practitioner: Liliane Sawyer APRN, EDUCATIONAL TECHNICIAN Referral Date : 12/19/21 Diagnosis: Lumbar radiculopathy [...] constant stiffness and soreness. Pt completed exercises perlog, added planks of side of plinth to [...] Met Chcf Goals - Time Frame for middle or intermediate school principal goals : 10 Automatic Centrifugal Station Operator Goals Time Frame for alf goals : 10 alf goal 1: Decrease pain low back 2/10 at worst x3 days for completing normal activities middle or intermediate school principal goal 2: Patient to report 50% decrease in radicular symptoms L LE Post Treatment Pain: 5/10 Time In: 0859 Time Out: 0947 Timed Code Treatment Minutes: 48 Minutes Total Treatment Time: 48 Minutes Beverly Rangel PTA Date: 01/29/2022 documented in this [facility] Phone: 1(705) 965-186804-25-2022 History of Present illness Narrative* Christel Donohue, PT - 01/27/2022 3:45 PM EDT Images from the original note were not included. [facility] Daily Note Date: 01/27/2022 Patient Name: Celina Gaspar : 1980 (41 y.o.) Referring Practitioner: Liliane Sawyer APRN, EDUCATIONAL TECHNICIAN Referral Date : 12/19/21 Diagnosis: Lumbar radiculopathy [...] Increase trunk ROM B rotation WFL-Not Met Automatic Centrifugal Station Operator Goals - Time Frame for alf goals : 10 Automatic Centrifugal Station Operator Goals Time Frame for middle or intermediate school principal goals : 10 alf goal 1: Decrease pain low back 2/10 at worst x3 days for completing normal activities alf goal 2: Patient to report 50% decrease in radicular symptoms L LE Post Treatment Pain: 4/10 Time In: 15:50 Time Out : 16:19 Timed Code Treatment Minutes: 34 Minutes Total Treatment Time: 34 Minutes Christel Donohue, PT Date: 01/27/2022 documented in this [facility] Phone: 1(952) 331-550304-22-2022 History of Present illness Narrative* Vanessa Garcia, PT - 01/24/2022 9:45 AM EDT Images from the original note were not included. [facility] Daily Note Date: [...] WFL Chcf Goals - Time Frame for alf goals : 10 Automatic Centrifugal Station Operator Goals Time Frame for alf goals : 10 alf goal 1: Decrease pain low back 2/10 at worst x3 days for completing normal activities middle or intermediate school principal goal 2: Patient to report 50% decrease in radicular symptoms L LE Post Treatment Pain: 5/10 Time In: 0952 Time Out: 1030 Timed Code Treatment Minutes: 38 Minutes Total Treatment Time: 38 Minutes Vanessa Garcia PT Date: 01/24/2022 documented in this [facility] [employer] Phone: 1(338) 121-843004-20-2022 History of Present illness Narrative* Beverly Rangel, SALES REPRESENTATIVE [employer] - 01/22/2022 4:[address] [facility] Date: 01/22/2022 Patient Name: Celina Gaspar : 1980 Patient did not show up for her appointment. Message left on answering machine with a reminder of her next appointment on Thursday. Beverly Rangel, SALES REPRESENTATIVE [employer] Date: 01/22/2022 documented in this [facility] Phone: 1(422) 431-921104-15-2022 History of Present illness Narrative* Beverly Rangel, SALES REPRESENTATIVE [employer] - 01/17/2022 10:30 AM EDT Images from the original note were not included. [facility] Daily Note Date: [...] WFL Chcf Goals - Time Frame for middle or intermediate school principal goals : 10 alf goal 1: Decrease pain low back 2/10 at worst x3 days for completing normal activities middle or intermediate school principal goal 2: Patient to report 50% decrease in radicular symptoms L LE Post Treatment Pain: 5/10 Time In: 1037 Time Out: 1107 Timed Code Treatment Minutes: 30 Minutes Total Treatment Time: 30 Minutes Beverly Rangel PTA Date: 01/17/2022 documented in this [facility] [employer] Phone: [phone]) 699-206004-11-2022 History of Present illness Narrative* ISAIAH Metzger - 01/13/2022 3:[address] [facility] Date: 01/13/2022 Patient Name: Celina Phand : 1980 Pt Cancelled Appt due to no reason given. NABILA Metzger Date: 01/13/2022 [facility] Phone: 1(318) 103-696704-01-2022 History of Present illness Narrative* Beverly Rangel, JENNIFER - 01/03/2022 9:45 AM EDT Images from the original note were not included. [facility] Daily Note Date: [...] 4: Increase trunk ROM B rotation WFL Automatic Centrifugal Station Operator Goals - Time Frame for middle or intermediate school principal goals : 10 alf goal 1: Decrease pain low back 2/10 at worst x3 days for completing normal activities middle or intermediate school principal goal 2: Patient to report 50% decrease in radicular symptoms L LE Post Treatment Pain: 5/10 Time In: 0948 Time Out: 1028 Timed Code Treatment Minutes: 40 Minutes Total Treatment Time: 40 Minutes Beverly Rangel, JENNIFER Date: 01/03/2022 [facility] Work Phone: 1([phone]) 141-907403-29-2022 History of Present illness Narrative* Lore Herman, OT - 12/31/2021 9:30 AM EDT Images from the original note were not included. [facility] Daily Note Date: [...] Time Frame for Short term goals: STG=LTG Automatic Centrifugal Station Operator Goals Time Frame for middle or intermediate school principal goals : 12 visits (01/24/2022) middle or intermediate school principal goal 1: pt to be indepenent in HEP-MET middle or intermediate school principal goal 2: Pt to demonstrate R wrist [...] Houser, OTR/L Date: 12/31/2021 documented in this [facility] [employer] Work Phone: 1(355) 385-338703-29-2022 Hospital course Narrative* Lore Herman OT - 12/31/2021 9:30 AM EDT Images from the original note were not included. 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 Therapist provided pt with handout on Carpal Tunnel Dos & Dont's to avoid re-injury. Prognosis: Fair Goals Short Term Goals Time Frame for Short term goals: STG=LTG Chcf Goals Time Frame for alf goals : 12 visits (01/24/2022) middle or intermediate school principal goal 1: pt to be indepenent in HEP-MET middle or intermediate school principal goal 2: Pt to demonstrate R wrist [...] Achieved Comments: Thank you for this referral Lore Herman, MOT, OTR/L Date: 12/31/2021 documented in this [facility] Work Phone: [phone]) 424-926603-29-2022 History of Present illness Narrative* Christel Castro Slademichael, PT - 12/31/2021 8:30 AM EDT Images from the original note were not included. [facility] Evaluation Date: 12/31/2021 [...] 4: Increase trunk ROM B rotation WFL alf goals Time Frame for alf goals : 10 [...] Donohue, PT Date: 12/31/2021 [facility] Work Phone: [phone]) 993-932903-28-2022 History of Present illness Narrative* Lore Herman, OT - 12/30/2021 8:30 AM EDT Images from the original note were not included. 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 2: Pt to demonstrate R wrist flexion to 65 degrees or more in order to engage in daily tasks-MET middle or intermediate school principal goal 3: Pt to demonstrate R wrist extension to 60 degrees or more in order to engage in daily tasks-MET middle or intermediate school principal goal 4: Pt to be educated on carpal tunnel do's & dont's in order to prevent further repetitive injury to wrist-MET Time In: 835 Time Out: 915 Timed Coded Minutes: 40 Total Treatment Time: 40 THERESA Houser, OTR/L Date: 12/30/2021 [facility] Work Phone: 1(717) 324-952703-21-2022 History of Present illness Narrative* Lore Herman OT - 12/23/2021 8:30 AM EDT Images from the original note were not included. [facility] Evaluation Date: 12/23/2021 [...] completing these mvmts Left Hand Strength - Inspecting Engineer (lbs) Handle Setting 2: 54#, 50#, 53# (52.3# ave) Left Hand Strength - Pinch (lbs) Lateral: 13.5# Tip: 8# Palmar 3 point: 11# Right Hand Strength - Inspecting Engineer (lbs) Handle Setting 2: 53#, 54#, 53# (53.3# ave) Right Hand Strength - Pinch (lbs) Lateral: 14# Tip: 9.5# Palmar 3 point: 12.5# Assessment Performance deficits / Impairments: Decreased ROM,Decreased high-level IADLs Assessment: OT evaluation completed. Pt demonstrates the above deficits regarding L wrist ROM. Overall, pt presents with very limited deficits s/p CTR surgery. No strength or dexerity deficits noted,pts only deficits w/ ROM involved wrist flexion & extension. Pt does c/o overall stiffness/tightness of L hand but also states she feels that in R hand as well- pt may have some sx of arthritis in the joints of the hand. 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 goal 2: Pt to demonstrate R wrist [...] THERESA Houser, OTR/Matthew 12/23/2021 [facility]: evaluation note* Diagnosis Viral illness Unspecified viral infection, in conditions classified elsewhere and of unspecified site documented in this encounter [employer] Phone: [email or web address] note* Diagnosis Suspected COVID-19 virus infection documented in this encounter [employer] Phone: evalembkwp note* Diagnosis Acute cystitis with hematuria Acute cystitis documented in this encounter [employer] Phone: evalcfcpkj note* Diagnosis Difficult or painful urination Dysuria documented in this encounter [employer] Phone: evaljxtiqz note* Diagnosis Acute cystitis with hematuria Acute cystitis Recurrent UTI Urinary tract infection, site not specified documented in this encounter [employer] Phone: evalyufxyx note* Diagnosis Frequent UTI Urinary tract infection, site not specified Urinary urgency Urgency of urination Urinary frequency documented in this encounter [employer] Phone: evaltububi note* Diagnosis Frequent UTI Urinary tract infection, site not specified Urinary urgency Urgency of urination Urinary frequency documented in this encounter [employer] Phone: [email or web address] note* Diagnosis MRSA (methicillin resistant Staphylococcus aureus) septicemia ([facility]) Methicillin resistant staphylococcus aureus septicemia [facility] noteNo assessment information availableMer[facility] Work Phone: evaluation note* Diagnosis Fatigue, unspecified type Encounter for screening for HIV Mixed hyperlipidemia Hyperglycemia Other abnormal glucose Chronic renal impairment, stage 3b (HCC) documented in this encounter [employer] Phone: [email or web address] note* Diagnosis Acute cystitis with hematuria Acute cystitis documented in this encounter [employer] Phone: evaldnivce note* Diagnosis Neck mass Swelling, mass, or lump in head and neck documented in this encounter [employer] Phone: evaloybsgx note* Diagnosis Pain of foot, unspecified laterality Closed nondisplaced fracture of second metatarsal bone of left foot, initial encounter Closed nondisplaced fracture of lateral cuneiform of left foot, initial encounter documented in this encounter [employer] Phone: evaluation note* Diagnosis Foreign body (FB) in soft tissue Residual foreign body in soft tissue documented in this encounter [facility] [employer] Phone: evaluation note* Diagnosis Pelvic pressure in female Other specified symptom associated with female genital organs documented in this encounter [facility] [employer] Phone: evaluation note* Diagnosis Charcot arthropathy of midfoot- Primary Gastrocnemius equinus, unspecified laterality Foot pain, left Pain in soft tissues of limb [facility] Diagnosis Mixed hyperlipidemia documented in this encounter [facility] NoDaysOffEvaluation note* Diagnosis Idiopathic progressive polyneuropathy Non-seasonal allergic rhinitis due to pollen documented [facility]* Diagnosis Thyroid nodule Nontoxic uninodular goiter documented in this encounter [facility] note* Diagnosis Thyroid nodule- Primary Nontoxic uninodular goiter [facility]* Diagnosis BUCK on CPAP- Primary 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 (CMS/HCC) Restless legs Restless legs syndrome (RLS) Bilateral carpal tunnel syndrome Carpal tunnel syndrome documented in this encounter [facility]* Diagnosis Idiopathic progressive polyneuropathy- Primary Bilateral carpal tunnel syndrome Carpal tunnel syndrome Restless legs Restless legs syndrome (RLS) Intractable 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 (CMS/HCC) documented [facility]* Diagnosis BUCK (obstructive sleep apnea) Obstructive sleep apnea (adult) (pediatric) Hypersomnia Hypersomnia, unspecified Snoring Other dyspnea and respiratory abnormality Class 2 obesity due to excess calories with body mass index (BMI) of 38.0 to 38.9 in adult, unspecified whether serious comorbidity present documented in this encounter [facility]* Diagnosis Idiopathic progressive polyneuropathy Non-seasonal allergic rhinitis due to pollen documented in [facility]* Diagnosis Thyroid nodule- Primary Nontoxic uninodular goiter Lipoma of neck [facility]* Diagnosis 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 (CMS/HCC) documented in [facility]* Diagnosis BUCK on CPAP- Primary Idiopathic progressive polyneuropathy Restless legs Restless legs syndrome (RLS) Intractable 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 (CMS/HCC) documented in this encounter [facility] HealthcareEvaluation note* Diagnosis Pre-diabetes Other abnormal glucose Mixed hyperlipidemia documented [facility]* Diagnosis BUCK (obstructive sleep apnea)- Primary Obstructive sleep apnea (adult) (pediatric) BUCK on CPAP Claustrophobia (CMS/HCC) Other isolated or specific phobias documented in this encounter [facility] HealthcareEvaluation note* Diagnosis BUCK (obstructive sleep apnea)- Primary Obstructive sleep apnea (adult) (pediatric) BUCK on CPAP Claustrophobia (CMS/HCC) Other isolated or specific phobias Charcot's joint, left ankle and foot- Primary Gait instability Abnormality of gait 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 (CMS/HCC) Restless legs Restless legs syndrome (RLS) Carpal tunnel syndrome, bilateral Carpal tunnel syndrome BUCK (obstructive sleep apnea) Obstructive sleep apnea (adult) (pediatric) documented in this encounter [facility] HealthcareEvaluation note* Diagnosis BUCK (obstructive sleep apnea)- Primary Obstructive sleep apnea (adult) (pediatric) BUCK on CPAP Claustrophobia Other isolated or specific phobias BUCK (obstructive sleep apnea)- Primary Obstructive sleep apnea (adult) (pediatric) Claustrophobia Other isolated or specific phobias Hypersomnia Hypersomnia, unspecified documented in this encounter [facility] note* Diagnosis BUCK (obstructive sleep apnea)- Primary Obstructive sleep apnea (adult) (pediatric) BUCK on CPAP Claustrophobia Other isolated or specific phobias BUCK (obstructive sleep apnea)- Primary Obstructive sleep apnea (adult) (pediatric) Claustrophobia Other isolated or specific phobias Hypersomnia Hypersomnia, unspecified Right foot pain- Primary Pain in soft tissues of limb Skin ulcer of toe of right foot with fat layer exposed (HCC) Infection of toe Unspecified local infection of skin and subcutaneous tissue Idiopathic progressive polyneuropathy Generalized edema Edema documented in this encounter [facility] note* Diagnosis BUCK (obstructive sleep apnea)- Primary Obstructive sleep apnea (adult) (pediatric) BUCK on CPAP Claustrophobia Other isolated or specific phobias BUCK (obstructive sleep apnea)- Primary Obstructive sleep apnea (adult) (pediatric) Claustrophobia Other isolated or specific phobias Hypersomnia Hypersomnia, unspecified MRSA (methicillin resistant staph aureus) culture positive- [...] foot, initial encounter documented in this encounter [facility] Discharge instructions* Attachments The following attachments cannot be sent through Care Everywhere. * Diabetic Foot Ulcer (Lao) [facility] N[facility]* Other (Routine) - Closed Specialty Diagnoses / Procedures Referred By Thor bernal Referred To Contact Radiology Diagnoses Encounter for screening mammogram for malignant neoplasm of breast Procedures [facility] BRIAN DIGITAL SCREEN BILATERAL Back, MD Felipe [address] [place] [address] Phone: tel: fax: Referral ID Status Reason Start Date Expiration Date Visits Re quested Visits Authorized [id number] Closed 01/29/2025 01/29/2026 1 1 [facility] for visit Narrative* Imaging (Emergency) - Pending Review Specialty Diagnoses / Procedures Referred By Thor bernal Referred To Contact Radiology Diagnoses Pain in right foot Procedures MRI FOOT RIGHT W WO CONTRAST Robbin Sánchez, DPDieudonne [address] [facility], [address] [place] [id number] Phone: tel: fax: Referral ID Status Reason Start Date Expiration Date V isits Requested Visits Authorized [id number] Pending Review 04/11/2025 04/10/2026 1 1 [facility] [employer] Summary Purpose Family History No Family History [...] FoundDocuments on File Type Date Recorded Patient Media Center Assistant Expl anation Advance Directives and Living Will Power of Supervisor Stage Carpentry Latest Code Status on File Code Status Date Activated Date Inactivated Comments Full Code 08/15/2018 4:17 PM 08/25/2018 8:55 PM Full Code 03/19/2017 1:37 PM 03/19/2017 4:32 PM Full Code 03/19/2017 10:57 AM 03/19/2017 1:37 PM Full Code 03/05/2017 12:56 PM 03/05/2017 3:55 PM Full Code 03/05/2017 10:05 AM 03/05/2017 12:56 PM Documents on File Type Date Recorded Patient Media Center Assistant Expl anation ACP-Advance Directive ACP-Power of Supervisor Stage Carpentry Documents on File Type Date Recorded Patient Media Center Assistant Expl anation ACP-Advance Directive ACP-Power of Supervisor Stage Carpentry Latest Code Status on File Code Status [...] Tiffanie Casas MD [address] [place] [address] Specialty Diagnoses / Procedures Referred By Contac t Referred To Contact Radiology Diagnoses Neck mass Procedures US HEAD NECK SOFT TISSUE THYROID Jair, MD Felipe [address] [place] [address] Referral ID Status Reason Start Date Expiration Date Visits Re quested Visits Authorized [id number] Closed 05/27/2022 05/27/2023 1 1 Specialty Diagnoses / Procedures Referred By Thor bernal Referred To Contact Radiology Diagnoses Thyroid nodule Procedures US THYROID Back, MD [address] [place] [address] Referral ID Status Reason Start Date Expiration Date V isits Requested Visits Authorized [id number] Pending Review 09/06/2024 08/26/2025 1 1 Chief Complaint and Reason for Visit Chief Complaint M54.16 M79.10 M79.60 9 R20.9 Chief Complaint Unknown Additional Source Comments INFORMATION SOURCE (unrecogn ized section and content) DATE CREATED AUTHOR 03/30/2018 [facility] DATE CREATED AUTHOR AUTHOR'S ORGANIZ ATION 03/30/2018 [facility] DATE CREATED AUTHOR AUTHOR'S ORGANIZ ATION 09/15/2018 [facility] DATE CREATED AUTHOR AUTHOR'S ORGANIZ ATION 09/23/2018 [facility] DATE CREATED AUTHOR AUTHOR'S ORGANIZ ATION 09/26/2018 [facility] DATE CREATED AUTHOR AUTHOR'S ORGANIZ ATION 12/10/2018 [facility] DATE CREATED AUTHOR AUTHOR'S ORGANIZ ATION 12/18/2018 [facility] DATE CREATED AUTHOR AUTHOR'S ORGANIZ ATION 02/11/2019 [facility] DATE CREATED AUTHOR AUTHOR'S ORGANIZ ATION 11/30/2021 [facility] DATE CREATED AUTHOR AUTHOR'S ORGANIZ ATION 05/01/2022 [facility] DATE CREATED AUTHOR AUTHOR'S ORGANIZ ATION 01/12/2023 [facility] DATE CREATED AUTHOR AUTHOR'S ORGANIZ ATION 02/15/2023 [facility] DATE CREATED AUTHOR AUTHOR'S ORGANIZ ATION 04/04/2023 [facility] DATE CREATED AUTHOR AUTHOR'S ORGANIZ ATION 02/20/2024 [facility] DATE CREATED AUTHOR AUTHOR'S ORGANIZ ATION 10/17/2024 [facility] DATE CREATED AUTHOR AUTHOR'S ORGANIZ ATION 02/14/2025 [facility] DATE CREATED AUTHOR AUTHOR'S ORGANIZ ATION 04/24/2025 [facility] d[facility] Specialists [facility] DATE CREATED AUTHOR AUTHOR'S ORGANIZ ATION 05/16/2025 Laurie walden Reason for Visit (unrecogniz ed section and content) Reason Comments Sleep Apnea Specialty Diagnoses / Procedures Referred By Contac t Referred To Contact Neurology Diagnoses BUCK on CPAP Procedures [place] OFFICE/OUTPATIENT NEW HIGH MDM 60 MINUTES Fozia Meng, EMISSIONS REPAIR TECHNICIAN [address], [facility] [address] [place] [address] Phone: tel: fax: Lynn Block MD [address] [facility] [address] [place] [address] Phone: tel: fax: Referral ID Status Reason Start Date Expiration Date V isits Requested Visits Authorized [id number] Closed Specialty Services Required 11/14/2024 05/13/2025 1 1 Status Reason Specialty Diagnoses / Procedures Referre d By Contact Referred To Contact Closed Radiology Diagnoses Brachial neuritis Peripheral nerve disorder Spasm of muscle Procedures MR Cervical Spine Without Contrast Tiffanie Casas MD [address] [place] [address] Specialty Diagnoses / Procedures Referred By Contac t Referred To Contact Occupational Therapy Diagnoses Carpal tunnel syndrome Carpal Tunnel Syndrome Procedures Eval and treat Keenan Lozano MD [address] [facility] [address] [place] [address] [facility] [address] [place] [address] Referral ID Status Reason Start Date Expiration Date Visits Re quested Visits Authorized [id number] Open 12/19/2021 12/19/2022 1 1 Specialty Diagnoses / Procedures Referred By Contac t Referred To Contact Physical Therapy Diagnoses Radiculopathy, lumbar region Lumbar Radiculopathy Procedures Eval and treat Janel Allen, STICKER ON - EDUCATIONAL TECHNICIAN [address] [place] [address] [facility] [address] [place] [phone] Referral ID Status Reason Start Date Expiration Date Visits Re quested Visits Authorized [id number] Open 12/19/2021 12/19/2022 1 1 Specialty Diagnoses / Procedures Referred By Thor t Referred To Contact Radiology Diagnoses Neck mass Procedures US HEAD NECK SOFT TISSUE THYROID Felipe Adam MD [address] [place] [address] Referral ID Status Reason Start Date Expiration Date Visits Re quested Visits Authorized [id number] Closed 05/27/2022 05/27/2023 1 1 Specialty Diagnoses / Procedures Referred By Thor t Referred To Contact Radiology Diagnoses Pain of foot, unspecified laterality Closed nondisplaced fracture of lateral cuneiform of left foot, initial encounter Procedures MRI FOOT LEFT W WO CONTRAST MRI FOOT LEFT W WO CONTRAST Robbin Sánchez, DPM [address] [facility], [address] [place] [id number] Referral ID Status Reason Start Date Expiration Date Visits Re quested Visits Authorized [id number] Closed 06/20/2022 06/20/2023 1 1 Reason Comments Education Class Specialty Diagnoses / Procedures Referred By Thor bernal Referred To Contact Diabetes Services Diagnoses Pre-diabetes Felipe Adam MD [address] [place] [address] [facility] [address] [place] [address] Referral ID Status Reason Start Date Expiration Date V isits Requested Visits Authorized [id number] Open Specialty Services Required 06/30/2022 06/30/2023 2 2 Specialty Diagnoses / Procedures Referred By Thor bernal Referred To Contact Diabetes Services Diagnoses Pre-diabetes Felipe Adam MD [address] [place] [address] [facility] [address] [place] [phone] Reason Comments Other Left foot charcot on -going since 06/2022. New x-rays today. 2nd of opinion. Specialty Diagnoses / Procedures Referred By Thor bernal Referred To Contact Radiology Diagnoses Thyroid nodule Procedures US THYROID Felipe Adam MD [address] [place] [address] Referral ID Status Reason Start Date Expiration Date V isits Requested Visits Authorized [id number] Pending Review 09/06/2024 08/26/2025 1 1 Reason Onset Date Comments Med Refill 10/05/2024 Reason Comments New Patient FNA - THYROID NODULE Specialty Diagnoses / Procedures Referred By Thor bernal Referred To Contact Otolaryngology Diagnoses Thyroid nodule Jair, MD [address] [place] [address] Phone: tel: fax: Sherman Adair MD [address] [place] [address] Phone: tel: fax: Referral ID Status Reason Start Date Expiration Date V isits Requested Visits Authorized [id number] Pending Review 09/09/2024 09/09/2025 1 1 Reason Comments Skin Ulcer Pt presents to ER wi th a skin ulcer on her right 2nd digit that she noticed around 2 weeks ago. States she has had swelling in that foot since then, but the swelling has gotten worse even from this AM and has moved up her leg. States she has neuropathy in both feet to mid calf. Hx of Charcot foot and reconstruction in left foot. Reason Comments Foot Ulcer RT toe 2 ulcer Reason Comments Follow-up RT foot pain/Review MRI results Care Teams (unrecognized sec tion and content) Executive Talent Acquisition Consultant Relationship Specialty Start Date End Date Jair, MD [address] [place] [address] PCP - General Internal Medicine 11/14/11 Executive Talent Acquisition Consultant Relationship Specialty Start Date End Date Felipe Adam MD [address] [place] [address] PCP - General Internal Medicine 11/14/11 Executive Talent Acquisition Consultant Relationship Specialty Start Date End Date Back, MD Felipe [address] [place] [phone] PCP - General Internal Medicine 11/14/11 Executive Talent Acquisition Consultant Relationship Specialty Start Date End Date Back, MD Fel[address] [place] [phone] PCP - General Internal Medicine 11/14/11 Executive Talent Acquisition Consultant Relationship Specialty Start Date End Date Back, MD [address] [place] [id number] PCP - General Internal Medicine 11/14/11 Executive Talent Acquisition Consultant Relationship Specialty Start Date End Date Back, MD Felipe [address] [place] [id number] PCP - General Internal Medicine 11/14/11 Executive Talent Acquisition Consultant Relationship Specialty Start Date End Date Back, MD Felipe [address] [place] [id number] PCP - General Internal Medicine 11/14/11 Team Status: Inactive Member Role Status Dates NON STAFF Primary Care Provider Active Tiffanie Casas MD Attending Provider Active Team Status: Active Member Role Status Dates NON STAFF Primary Care Provider Active Executive Talent Acquisition Consultant Relationship Specialty Start Date End Date Back, MD Felipe [address] [place] [id number] PCP - General Internal Medicine 11/14/11 Executive Talent Acquisition Consultant Relationship Specialty Start Date End Date Back, MD Felipe [address] [place] [id number] PCP - General Internal Medicine 11/14/11 Executive Talent Acquisition Consultant Relationship Specialty Start Date End Date Back, MD Felipe [address] [place] [id number] PCP - General Internal Medicine 11/14/11 Executive Talent Acquisition Consultant Relationship Specialty Start Date End Date Back, MD Felipe [address] [facility], [facility] PCP - General Internal Medicine 11/14/11 Executive Talent Acquisition Consultant Relationship Specialty Start Date End Date Back, MD Felipe [address] [facility], [place] [address] PCP - General Internal Medicine 11/14/11 Executive Talent Acquisition Consultant Relationship Specialty Start Date End Date Back, MD Felipe [address] [facility], [place] [address] PCP - General Internal Medicine 11/14/11 Executive Talent Acquisition Consultant Relationship Specialty Start Date End Date Back, MD Felipe [address] [facility], [place] [address] PCP - General Internal Medicine 11/14/11 Executive Talent Acquisition Consultant Relationship Specialty Start Date End Date Back, MD Felipe [address] [facility], [place] [address] PCP - General Internal Medicine 11/14/11 Executive Talent Acquisition Consultant Relationship Specialty Start Date End Date Back, MD Felipe [address] [facility], [place] [address] PCP - General Internal Medicine 03/26/15 Executive Talent Acquisition Consultant Relationship Specialty Start Date End Date Back, MD Felipe [address] [facility], [place] [address] PCP - General Internal Medicine 11/14/11 Team Status: Inactive Member Role Status Dates Frances Harris DPM MS Attending Provider Active Start: February 15, 2024 End: February 15, 2024 Executive Talent Acquisition Consultant Relationship Specialty Start Date End Date Back, MD Felipe [address] [facility], [place] [address] PCP - General Internal Medicine 11/14/11 Executive Talent Acquisition Consultant Relationship Specialty Start Date End Date Back, MD Felipe [address] [place] [id number] PCP - General Internal Medicine 11/14/11 Executive Talent Acquisition Consultant Relationship Specialty Start Date End Date Back, MD Felipe [address] [place] [id number] PCP - General Internal Medicine 03/26/15 Executive Talent Acquisition Consultant Relationship Specialty Start Date End Date Back, MD Felipe [address] [place] [id number] PCP - General Internal Medicine 03/26/15 Executive Talent Acquisition Consultant Relationship Specialty Start Date End Date Back, MD Felipe [address] [place] [address] PCP - General Internal Medicine 11/14/11 Executive Talent Acquisition Consultant Relationship Specialty Start Date End Date Back, MD Alcides [address] [place] [address] PCP - General Family Medicine 12/08/24 Executive Talent Acquisition Consultant Relationship Specialty Start Date End Date Back, MD Alcides [address] [place] [address] PCP - General Family Medicine 12/08/24 Executive Talent Acquisition Consultant Relationship Specialty Start Date End Date Back, MD Felipe [address] [facility], [place] [address] PCP - General Internal Medicine 11/14/11 Executive Talent Acquisition Consultant Relationship Specialty Start Date End Date Back, MD Alcides [address] [facility], [facility] PCP - General Family Medicine 12/08/24 Executive Talent Acquisition Consultant Relationship Specialty Start Date End Date Back, MD Felipe [address] [place] [address] PCP - General Internal Medicine 11/14/11 Executive Talent Acquisition Consultant Relationship Specialty Start Date End Date Back, MD Alcides [address] [place] [address] PCP - General Family Medicine 12/08/24 Executive Talent Acquisition Consultant Relationship Specialty Start Date End Date Back, MD Alcides [address] [place] [address] PCP - General Family Medicine 12/08/24 Executive Talent Acquisition Consultant Relationship Specialty Start Date End Date Back, MD Alcides [address] [place] [address] PCP - General Family Medicine 12/08/24 Executive Talent Acquisition Consultant Relationship Specialty Start Date End Date Back, MD Alcides [address] [place] [address] PCP - General Family Medicine 12/08/24 Executive Talent Acquisition Consultant Relationship Specialty Start Date End Date Back, MD Felipe [address] [place] [address] PCP - General Internal Medicine 11/14/11 Executive Talent Acquisition Consultant Relationship Specialty Start Date End Date Back, MD Felipe [address] [place] [address] PCP - General Internal Medicine 11/14/11 Executive Talent Acquisition Consultant Relationship Specialty Start Date End Date Back, MD Alcides [address] [place] [address] PCP - General Family Medicine 12/08/24 Executive Talent Acquisition Consultant Relationship Specialty Start Date End Date Back, MD Felipe [address] [place] [address] PCP - General Internal Medicine 11/14/11 Goals (unrecognized section and content) Goals may be documented in a n alternate sectionGoals may be documented in an alternate section Ordered Prescriptions (unrec ognized section and content) Prescription Sig Dispense Quantity Refills Last Filled Start Date End Date clindamycin (CLEOCIN) 300 MG capsule Take 1 capsule by mouth 3 times daily for 10 days 30 capsule 04/04/2025 5 ciprofloxacin (CIPRO) 500 MG tablet Take 1 tablet by mouth 2 times daily for 10 days 20 tablet 04/04/2025 5 Scheduled Active and Recently Administ ered Medications (unrecognized section and content) Medication Order 04/03/2025 04/04/2025 04/05/2025 ciprofloxacin (CIPRO) IVPB 400 mg (COMPLETED) 400 mg, IntraVENous, ONCE, 1 dose, On Thu04/04/25 at 2200, Antimicrobial Indications: Skin and Soft Tissue Infection 221 (New Bag - Provider: Rebeca Moore RN)232 (Stopped - Provider: Rebeca Moore RN) clindamycin (CLEOCIN) 600 mg in sodium chloride 0.9 % 50 mL IVPB (COMPLETED) 600 mg, IntraVENous, ONCE, 1 dose, On Thu04/04/25 at 2200, Antimicrobial Indications: Skin and Soft Tissue Infection 232 (New Bag - Provider: Rebeca Moore RN - Comment: right medication, dosage of medication and mixture verified with MANINDER Hoang.)2354 (Stopped - Provider: Rebeca Moore RN) sodium chloride 0.9 % bolus 1,000 mL (COMPLETED) 1,000 mL (10.3 mL/kg), IntraVENous, at 1,935.5 mL/hr, Administer over 31 Minutes, ONCE, On Thu04/04/25 at 2200, For 1 dose 221 (New Bag - Provider: Rebeca Moore RN)2316 (Stopped - Provider: Rebeca Moore RN) FOR RECORDS PERTAINING TO PATIENTS WHO ARE [...] BE BASED ON THE PRIMARY CLINICAL RECORDS. [employer] [facility]. provides no warranty or guarantee of the accuracy or completeness of information in this document.
== END 2025-05-17 10:23 | disposition home or self-care (01) ==
LOC: WC 10:23
PROVIDERS: PCP Internal Medicine; Visit Provider Physician Assistant
DX: E11.621 Type 2 diabetes mellitus with foot ulcer (principal); L97.422 Non-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 with fat layer exposed; L97.515 Non-pressure chronic ulcer of other part of right foot with muscle involvement without evidence of necrosis
CPT/HCPCS: 11043

== ENCOUNTER 2025-05-31 09:09 | Outpatient (OUT) | payer OTHER, SELFPAY ==
--- OUTSIDE RECORDS SUMMARY | 2024-09-20 07:15 | XMS_ITS ---
Author Organization The [facility] in [place] Address [address] [place] [address] Care Team Providers Care Dentist/Owner Name Role Phone None, Unknown or Primary Care Provider Unavailab Nimesh Plascencia Unavailable [phone] Allergies Allergen (clinical drug ingredient) Drug/Non Drug [...] Notes Patient is a nonsmoker Vital Signs Temperature 97.3 degrees Fahrenheit 09/20/20 24 Heart Rate 98 /min 09/20/2024 Height 62 in 09/20/2024 Oximetry 97 % 09/20/2024 Encounters Encounter Location Date Provider Diagnosis [facility] [place] (PODIATRY) [address] [place] [address] [place] [address] 09/20/2024 Nimesh Chase Pseudarthrosis after fusion or [...] Celina GASPAR MDOB: [birth year] (44 yo F)Acc No.[id number]:09/20/2024 Follow Up Patient: Celina DRAKE Provider: Frank Chase DPM, MS :1980 A ge:44 Y S ex:Female Date:09/20/2024 Address:[address] [place] [address], [id number] Pcp:Unknown or None Check In:10:59 AM ESTCheck [...] polyneuropathy Modified On:10/02/2023W/U Status:confirmed T81.31XA 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
--- OUTSIDE RECORDS SUMMARY | 2024-11-01 07:00 | XMS_ITS ---
Author Organization [facility] in [place] Address [address] [place] [address] Care Team Providers Care Nursing Assistants Teacher Name Role Phone None, Unknown or Primary Care Provider Unavailab Nimesh Plascencia Unavailable [phone] Allergies Allergen (clinical drug ingredient) Drug/Non Drug Allergy documented on EMR Reaction Allergy Type Onset Date Status ChloraPrep One Step Unknown Drug Allergy Active Reason For Referral Reason Referral to [facility] Diagnosis 1 Charcot's joint, lef t ankle and foot (M14.672) Referral Organization [facility] (PODIATRY) Referring Provider First Name Nimesh Referring Provider Last Name Rena Referring Provider Speciality Podiatry Referred Provider Specialty Podiatry Referral Priority Routine REASON FOR VISIT 6 week f/u Medications Medication SIG (Take, Route, Frequency, Duration) Notes Start Date End Date Status Zoloft Active Vitamin D Active Vitamin B Complex Ac tive rOPINIRole HCl Activ e Nurtec Active Famotidine 20 MG TAKE 1 TABLET BY BLANCA 2 TIMES DAILY Oral for 30 Days Active Gemfibrozil Active Lyrica Active Lisdexamfetamine Dimesylate 50 MG Oral for 30 Days Active Naltrexone Active Calcium Active Biotin Active Baclofen Active Alendronate Sodium 70 MG 1 tablet 30 min utes before the first food, beverage or medicine of the day with plain water Orally weekly for 94 days 07/01/2024 Active Social History Tobacco Use: Social History Observation Description Date Details (start date - stop date) Never Smoker NA - NA Tobacco Use/Smoking Question Answer Notes Patient is a nonsmoker Vital Signs Temperature 96.8 degrees Fahrenheit 11/01/19 25 Heart Rate 100 /min 11/01/2024 Height 62 in 11/01/2024 Oximetry 98 % 11/01/2024 Encounters Encounter Location Date Provider Diagnosis [facility] (PODIATRY) [address] [place] [address] [place] [address] 11/01/2024 Nimesh Chase Charcot's joint, lef t ankle and foot M14.672 ; Pseudarthrosis after fusion or arthrodesis M96.0 and Pain in left foot M79.672 Assessments Encounter Date Diagnosis (ICD Code) Assessment Notes Treatment Notes Treatment Clinical Notes Section Notes 11/01/2024 Charcot's joint, left ankle and foot (ICD-10 - M14.672) Patient seen and evaluated. Patient education provided. All questions answered to satisfaction. Patient is roughly 8 months status post medial column and midfoot, subtalar joint fusions for midfoot Charcot deformity. She remains ulcer free however there is no significant progression in bony healing therefore I recommend a bone stimulator which has previously been denied by her insurance company. I also ordered diabetic shoes with protective inserts which will prevent ulceration. She should follow-up in a month with weightbearing foot x-rays 11/01/2024 Pseudarthrosis after fusion or arthrodesis (ICD-10 - M96.0) 11/01/2024 Pain in left foot (ICD-10 - M79.672) Plan Of Treatment Treatment Notes Assessment Notes Charcot's joint, left ankle and foot Pat ient seen and evaluated. Patient education provided. All questions answered to satisfaction. Patient is roughly 8 months status post medial column and midfoot, subtalar joint fusions for midfoot Charcot deformity. She remains ulcer free however there is no significant progression in bony healing therefore I recommend a bone stimulator which has previously been denied by her insurance company. I also ordered diabetic shoes with protective inserts which will prevent ulceration. She should follow-up in a month with weightbearing foot x-rays Pending Test Test Name Order Date XR Foot LT (3 views) * 11/01/2024 Referrals Referral Date Details 11/03/2024 11/03/2024, Referral to [facility] Progress Notes * Celina GASPAR MDOB: 9 (44 yo F)Acc No.[id number]:11/01/2024 Follow Up Patient: Celina DRAKE Provider: Frank Chase DPM, MS :1980 A ge:44 Y S ex:Female Date:11/01/2024 Address:[address] [place] [address], [id number] Pcp:Unknown or None Check In:11:08 AM ESTCheck O ut:11:59 AM EST Subjective: * Chief Complaints: * 6 week f/u * HPI: G eneral: Patient in normal shoes shoes today. She is using her new compression stockings. She states that every now and then she has pins and needles in her toes that drive her crazy. She has not heard back from insurance for her bone stimulator. She would like to talk to about getting new diabetic shoes. * Active Problem List M79.672 Pain in left foot Modified On:12/30/2023/U Status:confirmed M25.572 Pain in left ankle a nd joints of left foot Modified On:04/15/2023/U Status:confirmed M14.672 Charcot's joint, lef t ankle and foot Modified On:4Risk:HighW/U Status:confirmed M19.079 Primary osteoarthrit is, unspecified ankle and foot Modified On:04/15/2023U Status:confirmed G60.9 Hereditary and idiop athic neuropathy, unspecified Modified On:12/30/2023/U Status:confirmed E11.42 Type 2 diabetes reid itus with diabetic polyneuropathy Modified On:02/11/2023/U Status:confirmed M21.6X2 Other acquired defor mities of left foot Modified On:4Risk:HighW/U Status:confirmed M24.572 Contracture, left an kle Modified On:12/30/2023/U Status:confirmed E11.42 Type 2 diabetes reid itus with diabetic polyneuropathy Modified On:10/02/2023/U Status:confirmed T81.31XA 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 (surgical) wound, not elsewhere classified, initial encounter Modified On:04/06/2024/U Status:confirmed L97.325 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 without evidence of necrosis Modified On:06/10/2024W/U Status:confirmed E11.622 Controlled type 2 di abetes mellitus with other skin ulcer, without long- term current use of insulin Modified On:06/10/2024W/U Status:confirmed L97.428 Non-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 with other specified severity Modified On:06/13/2024W/U Status:confirmed * Medical History: * Surgical History: [...] Vitamin B Complex Vitamin D Zoloft(Sertraline HCl) Medication List reviewed and reconciled with the patientTaking Alendronate Sodium 70 MG Tablet 1 tablet [...] Complex Taking Vitamin D Taking Zoloft(Sertraline HCl) Medication List reviewed and reconciled with the patient * Allergies: C hloraPrep One Step: Allergyno[Allergies Verified] Objective: * Vitals: H t: 62 in, Temp:96.8F, HR:100/min, Oxygen sat %:98%, Ht-cm: 157.48 cm. * Examination: P odiatry Examination: SKIN: s kin intact, n o sign of infection. MUSCULOSKELETAL: N o pain on palpation. No midfoot instability with stress exam. Small plantar prominence on plantar lateral midfoot but no preulcerative lesion. Strength on dorsiflexion and plantarflexion is equal and symmetric. NEUROLOGICAL: l ight touch sensation intact, n egative tinel's sign. VASCULAR: P edal pulses palpable, C apillaryrefill is brisk to toe, mild dorsal foot swelling, left. 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 Less than 1 cm of nonunion. Assessment: * Assessment: 1. C harcot's joint, left ankle and foot - M14.672 (Primary) R isk :High S pecify :midfoot 2 . P seudarthrosis after fusion or arthrodesis - M96.0 3 .?Pain in left foot - M79.672 Plan: * Treatment: 2. P ain in left foot I maging: XR Foot LT (3 views) * * Procedure Codes: * * Sign off status: Completed Visit Status: C HK (Check Out) true * Provider: Frank Chase DPM, MS Date: 0 11/01/2024 Generated for Raphael harrington/Henry/Danyellitting on: 0 05/31/2025 09:12 AM EDT History and Physical Notes * HPI (History of Present Illness) Category Sub-Category Detail Notes Category Not es General Patient in norm al shoes shoes today. She is using her new compression stockings. She states that every now and then she has pins and needles in her toes that drive her crazy. She has not heard back from insurance for her bone stimulator. She would like to talk to about getting new diabetic shoes. 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 Less than 1 cm of nonunion. MUSCULOSKELETAL: No pain on palpation . No midfoot instability with stress exam. Small plantar prominence on plantar lateral midfoot but no preulcerative lesion. Strength on dorsiflexion and plantarflexion is equal and symmetric NEUROLOGICAL: light touch sensatio n intact, negative tinel's sign VASCULAR: Pedal pulses palpable, Capillary refill is brisk to toe, mild dorsal foot swelling, left Consultation Request Notes Referral Date Referring Provider Referred Provider Not es 11/03/2024 Nimesh Chase , Referral dolores WICKTae [facility]
--- OUTSIDE RECORDS SUMMARY | 2024-11-18 07:00 | XMS_ITS ---
Author Organization The [facility] in [place] Address [address] [place] [address] Care Team Providers Care Project Control Manager Name Role Phone None, Unknown or Primary Care Provider Unavailab Nimesh Plascencia Unavailable [phone] Allergies Allergen (clinical drug ingredient) Drug/Non Drug [...] Patient is a nonsmoker Vital Signs Temperature 97.2 degrees Fahrenheit 11/18/19 25 Heart Rate 88 /min 11/18/2024 Height 62 in 11/18/2024 Weight 200 lbs 11/18/2024 BMI 36.58 kg/m2 11/18/2024 Oximetry 96 % 11/18/2024 Encounters Encounter Location Date Provider Diagnosis [facility] (PODIATRY) [address] [place] [address] [place] [address] 11/18/2024 Nimesh Chase Pseudarthrosis after fusion or [...] Celina GASPAR MDOB: [birth year] (44 yo F)Acc No.[id number]:11/18/2024 Follow Up Patient: Celina DRAKE Provider: Frank Chase DPM, MS :1980 A ge:44 Y S ex:Female Date:11/18/2024 Address:[facility] [address] [facility], [id number] Pcp:Unknown or None Check In:10:44 AM ESTCheck [...] M usculoskeletal: Bone/Joint Symptoms d enies. C longterm Pain d enies.?Leg cramps d enies. 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
--- OUTSIDE RECORDS SUMMARY | 2025-05-24 11:30 | XMS_ITS | Encounter Summary ---
Author Organization [facility] Address [address] [facility] [place] [address] Care Team Providers Care Orchestra Leader Name Role Phone Alcides Adam MD Primary Care Provider [phone] Reason for Referral * Rehabilitation - Outpatient (Routine) - Pending Review Specialty Diagnoses / Procedures Referred By Thor bernal Referred To Contact Physical Therapy Diagnoses Cervical radiculopathy Procedures [place] OFFICE/[facility]PATIENT [facility] 60 MINUTES Jennie Barajas APRN-CNP [address] [place] [address] Phone: tel: fax: [facility] [address] [place] [phone] Phone: tel: fax: Referral ID Status Reason Start Date Expiration Date Visits Requested Visits Authorized [id number] Pending Review Specialty Services Required 05/24/2025 11/20/2025 1 1 Encounter Details Date Type Department Care Team (Latest Contact Info) Description 05/24/2025 11:30 AM EDT Office Visit [facility] [address] [facility] [place] [phone] Jennie Barajas APRN-CNP [address] [place] [address] BUCK (obstructive sleep apnea) (Primary Dx); Cervical [...] this encounter Progress Notes * Jennie Barajas APRN-BUSINESS INTELLIGENCE ADMINISTRATOR - 05/24/2025 11:30 AM EDT Images from [...] reflexes: Goyo's absent. Ankle clonus absent. Coordination Mtzrhr-lh-bmpi, rapid alternating movements and wbwy-ei-qbzu normal bilaterally without dysmetria. Gait Casual gait: [...] Neurology [address] [place] [address] Jennie Baraajs, MANAGER SAS-BUSINESS INTELLIGENCE ADMINISTRATOR [address] [facility] [place] [address] Scheduled Referrals Name Type Priority Associated Diagnoses [...] Gregorio J Lola, DO us Jennie Jenn MANAGER SAS-BUSINESS INTELLIGENCE ADMINISTRATOR IMG XR PROCEDURES Lou l Result documented in this encounter Visit Diagnoses Diagnosis BUCK (obstructive sleep apnea)- Primary Obstructive sleep apnea (adult) (pediatric) Cervical paraspinal muscle spasm Spasm of muscle Cervical radiculopathy Brachial neuritis or radiculitis nos Cervical paraspinal muscle spasm Spasm of muscle documented in this encounter Care Teams Orchestra Leader Relationship Specialty Start Date End Date Back, MD Alcides [address] [place] [address] PCP - General Family Medicine 12/08/24 documented as of this encounter
--- OUTSIDE RECORDS SUMMARY | 2025-05-24 12:30 | XMS_ITS | Encounter Summary ---
Author Organization [facility] Address [address] [place] [address] Care Team Providers Care Environmental Geologist Name Role Phone Alcides Adam MD Primary Care Provider [phone] Encounter Details Date Type Department Care Team (Latest Contact Info) Description 05/24/2025 12:30 PM EDT Ancillary Procedure [facility] [address] [facility] [address] [place] [address] Cervical paraspinal muscle spasm Social History Tobacco Use Types Packs/Day Years [...] PM EST Office Visit [facility] [address] [facility] [address] [place] [address] Jennie Barajas, RECREATION PROGRAM COORDINATOR-ARNP [address] [facility] [address] [place], [place] [id number] documented as of this encounter Procedures Procedure Name Priority Date/Time Associated Diagnosis Comments XR CERVICAL SPINE COMPLETE 4-5 VIEWS Routine 05/24/2025 12:45 PM EDT Cervical paraspinal muscle spasm documented in this encounter Results * XR cervical spine [...] abnormality. ELECTRONICALLY SIGNED BY: Gregorio Davila DO us Jennie Barajas RECREATION PROGRAM COORDINATOR-ARNP IMG XR PROCEDURES Lou l Result documented in this encounter Visit Diagnoses Diagnosis Cervical paraspinal muscle spasm Spasm of muscle documented in this encounter Care Teams Environmental Geologist Relationship Specialty Start Date End Date Jair, MD Alcides [address] [place] [address] PCP - General Family Medicine 12/08/24 documented as of this encounter
--- OUTSIDE RECORDS SUMMARY | 2025-05-31 09:12 | XMS_ITS | Encounter Summary ---
Author Organization [facility] Address [address] [facility] [place] [address] Care Team Providers Care Clerk Typist Name Role Phone Alcides Adam MD Primary Care Provider [phone] Encounter Details Date Type Department Care Team (Late Contact Info) Description 08/24/2023 Clinisync Result Encounter [facility] External Department Unsolicited Trace Casas MD [address] [address] Social History Tobacco Use Types Packs/Day [...] Upcoming Encounters Date Type Department Care Team ([facility] Contact Info) Description 08/23/2025 1:00 PM EST Office Visit [facility] [address] [facility] [place] [address] Jennie Barajas, RN FIELD-ASSISTANT DIRECTOR OF FINANCIAL AID [address] [place], [place] [id number] documented as of this encounter Procedures Procedure [...] on filedocumented in this encounter Care Teams Clerk Typist Relationship Specialty Start Date End Date Back, MD Alcides [address] [place] [address] PCP - General Family Medicine 12/08/24 documented as of this encounter
--- OUTSIDE RECORDS SUMMARY | 2025-05-31 09:12 | XMS_ITS | Clinical Summary ---
Author Organization [facility] Address [address] [place] [address] Phone Care Team Providers Care Middle School English Teacher Name Role Phone Unavailable Primary Care Provider [...]
--- OUTSIDE RECORDS SUMMARY | 2025-05-31 09:12 | XMS_ITS | Patient Health Record ---
Author Organization [facility] [place] Address [address] [place] [address] Care Team Providers Care Copy Machine Operator Name Role Phone None, Unknown or Primary Care Provider Unavailab Frances Plascencia [phone] Allergies Allergen (clinical drug ingredient) Drug/Non Drug Allergy documented on EMR Reaction Allergy Type Onset Date Status ChloraPrep One Step Unknown Drug Allergy Active Results Component Value Reference Range Notes XR foot LT min 3V (Not yet r eviewed by provider) Interpretation: Performing Lab: Notes/Report: Source Facility: [place] [address] XRay Report Signed Patient: CELINA GAPSAR MR#: [id number] : 1980 Acct:[id number] Age/Sex: 44 / F ADM Date: 07/27/24 Loc: RAD Attending Dr: Frances Chase D.P.M. Ordering Physician: Frances Chase D.P.M. Date of Service: 07/27/24 Procedure(s): XR foot LT min 3V Accession Number(s): [id number] cc: Frances Chase D.P.M.; Physician,Non-Staff Matheus [facility] [place] [address] Patient Name: CELINA GASPAR MRN: [id number] date: 1980 Sex: F Assigned Patient Location: RAD Current Patient Location: Accession/Order Number: [id number] Exam Date: 07/27/2024 10:48 Report Date: 07/31/2024 [...] M.D. Signed By: 07/31/24721 DD/ 8 TD/TT: Threat Analyst: [place] [address] XRay Report Signed Patient: IAN GASPAR MR#: [id number] : 1980 Acct:[id number] Age/Sex: 44 / F ADM Date: 07/27/24 Loc: RAD Attending Dr: Frances Chase D.P.M. Ordering Physician: Frances Chase D.P.M. Date of Service: 07/27/24 Procedure(s): XR mirza t LT min 3V Accession Number(s): [id number] cc: Frances Chase D.P.M.; Physician,Non-Staff Matheus [facility] [place] [address] Patient Name: CELINA GASPAR MRN: [id number] date: 1980 Sex: F Assigned Patient Location: RAD Current Patient Location: Accession/Order Numb er: [id number] Exam Date: 10:48 Report Date: 07/31/2024 07:19 [...] M.D. Signed By: 07/31/24721 DD/ 8 TD/TT: Threat Analyst: XR foot LT min 3V (Not yet r eviewed by provider) Interpretation: Performing Lab: Notes/Report: Source Facility: [place] [address] XRay Report Signed Patient: CELINA GASPAR MR#: [id number] : 1980 Acct:[id number] Age/Sex: 44 / F ADM Date: 08/23/24 Loc: RAD Attending Dr: Frances Chase D.P.M. Ordering Physician: Frances Chase D.P.M. Date of Service: 08/23/24 Procedure(s): XR foot LT min 3V Accession Number(s): [id number] cc: Frances Chase D.P.M.; Physician,Non-Staff Matheus [facility] [place] [address] Patient Name: CELINA GASPAR MRN: [id number] date: 1980 Sex: F Assigned Patient Location: [facility] Current Patient Location: Accession/Order Number: [id number] Exam Date: 08/23/2024 10:38 Report Date: 08/25/2024 [...] M.D. Signed By: 08/25/24616 DD/ 3 TD/TT: Threat Analyst: [place] [address] XRay Report Signed Patient: IAN GASPAR MR#: [id number] : 1980 Acct:[id number] Age/Sex: 44 / F ADM Date: 08/23/24 Loc: RAD Attending Dr: Frances Chase D.P.M. Ordering Physician: Frances Chase D.P.M. Date of Service: 08/23/24 Procedure(s): XR mirza t LT min 3V Accession Number(s): [id number] cc: Frances Chase D.P.M.; Physician,Non-Staff Matheus [facility] [place] [address] Patient Name: CELINA GASPAR MRN: [facility]:[id number] date: 1980 Sex: F Assigned Patient Location: RAD Current Patient Location: Accession/Order Numb er: [id number] Exam Date: 10:38 Report Date: 08/25/2024 06:14 [...] M.D. Signed By: 08/25/24616 DD/ 3 TD/TT: Threat Analyst: CBC (COMPLETE BLOOD COUNT) * (Not yet reviewed by provider) Interpretation: Performing Lab:[facility], [address] [place] [address] PH:[phone] Notes/Report: WBC Count 3.8 3.5-11.0 k/uL RBC Count 3.54 4.00-5.20 m/uL Hemoglobin 9.9 12.0-16.0 g/dL Hematocrit 32.3 36.0-46.0 % MCV 91.2 80.0-100.0 fL MCH 28.0 26.0-34.0 pg MCHC 30.7 31.0-37.0 g/dL RDW 19.4 12.1-15.2 % Platelet Count 154 140-450 k/uL MPV 11.7 6.0-12.0 fL CRP (Not yet reviewed by pro vider) Interpretation: Performing Lab:[facility], [address] [place] [address] PH:[phone] Notes/Report: C-Reactive Protein 6.2 0.0-5.0 mg/L ESR (Not yet reviewed by pro vider) Interpretation: Performing Lab:[facility], [address] [place] [address] PH:[phone] Notes/Report: Sedimentation Rate 19 0-20 mm/Hr BASIC METABOLIC PANL (Not ye t reviewed by provider) Interpretation: Performing Lab:[facility] [address] [place] [address] PH:[phone] Notes/Report: NA (Sodium) 138 135-144 mmol/L K (Potassium) 4.4 3.7-5.3 mmol/L Chloride 104 98-107 mmol/L CO2 22 20-31 mmol/L Anion Gap 12 9-17 mmol/L Glucose 131 70-99 mg/dL BUN (Urea N) 17 6-20 mg/dL Creatinine 1.3 0.5-0.9 mg/dL eGFR 52 >60 mL/min/1.73m2 extra-renal metabolism of creatine, excessive creatine ingestion, or following results calculated using previous equations. The CKD-EPI equation is less accurate in patients with extremes of muscle mass, eGFR results are calculated without a race factor using the 2020 CKD-EPI therapy that affects renal tubular secretion. These results are not intended for use in patients <18 years of age. Careful clinical correlation is recommended, particularly when comparing to equation. Calcium 9.3 8.6-10.4 mg/dL MORPHX (Not yet reviewed by provider) Interpretation: Performing Lab:[facility], [address] [place] [address] PH:[phone] Notes/Report: Morphology MODERATE ANISOCYTOSIS XR foot LT min 3V (Not yet r eviewed by provider) Interpretation: Performing Lab: Notes/Report: Source Facility: [place] [address] XRay Report Signed Patient: CELINA GASPAR MR#: [id number] : 1980 Acct:[id number] Age/Sex: 44 / F ADM Date: 11/18/24 Loc: EC Attending Dr: Frances Chase D.P.M. Ordering Physician: Frances Chase D.P.M. Date of Service: 11/18/24 Procedure(s): XR foot LT min 3V Accession Number(s): [id number] cc: Frances Chase D.P.M.; Physician,Non-Staff Matheus [facility] [place] [address] Patient Name: CELINA GASPAR MRN: [id number] date: 1980 Sex: F Assigned Patient Location: EC Current Patient Location: EC Accession/Order Number: [id number] Exam Date: 11/18/2024 10:55 Report Date: 11/18/2024 [...] Signed By: 11/18/24 1346 DD/ 1344 TD/TT: Threat Analyst: [place] [address] XRay Report Signed Patient: IAN GASPAR MR#: [id number] : 1980 Acct:[id number] Age/Sex: 44 / F ADM Date: 11/18/24 Loc: EC Attending Dr: Frances Chase D.P.M. Ordering Physician: Frances Chase D.P.M. Date of Service: 11/18/24 Procedure(s): XR mirza t LT min 3V Accession Number(s): [id number] cc: Frances Chase D.P.M.; Physician,Non-Staff Matheus [address] [address] Patient Name: CELINA GASPAR MRN: [id number] date: 1980 Sex: F Assigned Patient Location: Current Patient Location: Accession/Order Numb er: [id number] Exam Date: 11/18/2024 10:55 Report Date: 11/18/2024 [...] Signed By: 11/18/24 1346 DD/ 1344 TD/TT: Threat Analyst: XR foot LT min 3V (Not yet r eviewed by provider) Interpretation: Performing Lab: Notes/Report: Source Facility: [place] [address] XRay Report Signed Patient: CELINA GASPAR MR#: [id number] : 1980 Acct:[id number] Age/Sex: 44 / F ADM Date: 11/01/24 Loc: RAD Attending Dr: Frances Chase D.P.M. Ordering Physician: Frances Chase D.P.M. Date of Service: 11/01/24 Procedure(s): XR foot LT min 3V Accession Number(s): [id number] cc: Frances Chase D.P.M.; Physician,Non-Staff Matheus [facility] [place] [address] Patient Name: CELINA GASPAR MRN: [id number] date: 1980 Sex: F Assigned Patient Location: RAD Current Patient Location: Accession/Order Number: [id number] Exam Date: 11/01/2024 10:45 Report Date: 11/02/2024 [...] Signed By: 11/02/24 1312 DD/ 1309 TD/TT: Threat Analyst: [place] [address] XRay Report Signed Patient: IAN GASPAR MR#: [id number] : 1980 Acct:[id number] Age/Sex: 44 / F ADM Date: 11/01/24 Loc: RAD Attending Dr: Frances Chase D.P.M. Ordering Physician: Frances Chase D.P.M. Date of Service: 11/01/24 Procedure(s): XR mirza t LT min 3V Accession Number(s): [id number] cc: Frances Chase D.P.M.; Physician,Non-Staff Matheus [address] [address] Patient Name: CELINA GASPAR MRN: [id number] date: 1980 Sex: F Assigned Patient Location: RAD Current Patient Location: Accession/Order Numb er: [id number] Exam Date: 11/01/2024 10:45 Report Date: 11/02/2024 [...] Signed By: 11/02/24 1312 DD/ 1309 TD/TT: Threat Analyst: XR foot LT min 3V (Not yet r eviewed by provider) Interpretation: Performing Lab: Notes/Report: Source Facility: [place] [address] XRay Report Signed Patient: CELINA GASPAR MR#: [id number] : 1980 Acct:[id number] Age/Sex: 44 / F ADM Date: 09/20/24 Loc: RAD Attending Dr: Frances Chase D.P.M. Ordering Physician: Frances Chase D.P.M. Date of Service: 09/20/24 Procedure(s): XR foot LT min 3V Accession Number(s): [id number] cc: Frances Chase D.P.M.; Physician,Non-Staff Matheus [facility] [place] [address] Patient Name: CELINA GASPAR MRN: [id number] date: 1980 Sex: F Assigned Patient Location: [facility] Current Patient Location: Accession/Order Number: [id number] Exam Date: 09/20/2024 10:45 Report Date: 09/21/2024 [...] M.D. Signed By: 09/21/2459 DD/ 5 TD/TT: Threat Analyst: [place] [address] XRay Report Signed Patient: IAN GASPAR MR#: [id number] : 1980 Acct:[id number] Age/Sex: 44 / F ADM Date: 09/20/24 Loc: RAD Attending Dr: Frances Chase D.P.M. Ordering Physician: Frances Chase D.P.M. Date of Service: 09/20/24 Procedure(s): XR mirza t LT min 3V Accession Number(s): [id number] cc: Frances Chase D.P.M.; Physician,Non-Staff Matheus [place] [address] Patient Name: CELINA GASPAR MRN: [id number] date: 1980 Sex: F Assigned Patient Location: RAD Current Patient Location: Accession/Order Numb er: [id number] Exam Date: 10:45 Report Date: 09/21/2024 06:56 [...] Hinson M.D. Signed By: 09/21/2459 DD/ TD/TT: Threat Analyst: Reason For Referral Reason Referral to [facility] Diagnosis 1 Charcot's joint, lef t ankle and foot (M14.672) Referral Organization [facility] ([facility]) Referring Provider First Name Frances Referring [...] Problem Status W/U Status Risk Notes Problem 04474271 Type 2 diabetes mellitus with diabetic polyneuropathy (E11.42) Active confirmed Problem Foot ulcer due to type 2 diabetes mellitus (4704820172592) Type 2 diabetes mellitus with foot ulcer (E11.621) Active confirmed Problem 33230202 Hereditary and idiopathic neuropathy, unspecified (G60.9) Active confirmed Problem 971893581 Charcot's joint, left ankle and foot (M14.672) Active confirmed High Problem 622083885 Primary osteoarthritis, 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) Active confirmed Problem 192494588 Other acquired deformities of left foot (M21.6X2) Active confirmed High Problem 535852047 Contracture, 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) Active confirmed Problem 007553038 Pain in left ankle and joints of left foot (M25.572) Active confirmed Problem 829371808222397 Pain in left mirza t (M79.672) Active confirmed Problem 82569123 Disruption of external operation (surgical) wound, not elsewhere classified, initial encounter (T81.31XA) Active confirmed Problem Polyneuropathy due to type 2 diabetes mellitus (992005688) Type 2 diabetes mellitus with diabetic polyneuropathy (E11.42) Active confirmed Problem Chronic ulcer of ankle (392039042) 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) Active confirmed Problem Non-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 with other specified severity (L97.428) Active confirmed Problem Skin ulcer associated with diabetes mellitus (106880398) Controlled type 2 diabetes mellitus with other skin ulcer, without long-term current use of insulin (E11.622) Active confirmed Problem Chronic ulcer of right foot (disorder) (85859473237987145 ) 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) Active confirmed Problem Ischemic ulcer o f left heel with fat layer exposed (L97.422) Active confirmed Vital Signs Heart Rate 88 /min 11/18/2024 Temperature 97.2 degrees Fahrenheit 11/18/2024 Oximetry 96 % 11/18/2024 Height 62 in 11/18/2024 Weight 200 lbs 11/18/2024 BMI 36.58 kg/m2 11/18/2024 Encounters Encounter Location Date Provider Diagnosis [facility] [address] [place] [address] 07/01/2024 Frances Chase [facility] ([facility]) [address] [place] [address] 08/04/2024 Frances Chase [facility] ([facility]) [address] [place] [address] 11/18/2024 Frances Chase Pseudarthrosis after fusion or arthrodesis M96.0 ; Charcot's joint, left ankle and foot M14.672 and Pain in left foot M79.672 [facility] ([facility]) [address] [place] [address] [place] [address] 07/27/2024 Frances Chase Pseudarthrosis after fusion or arthrodesis M96.0 ; Charcot's joint, left ankle and foot M14.672 and Pain in left foot M79.672 [facility] (PODIATRY) [address] [place] [address] [place] [address] 08/23/2024 Frances Chase Pain in left foot M79.672 ; Charcot's joint, left ankle and foot M14.672 and 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 [facility] (PODIATRY) [address] [place] [address] [place] [address] 09/20/2024 Frances Chase Pseudarthrosis after fusion or arthrodesis M96.0 ; Charcot's joint, left ankle and foot M14.672 ; Hereditary and idiopathic neuropathy, 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 and Pain in left foot M79.672 [facility] ([facility]OD[facility]) [address] [place] [address] [place] [address] 11/01/2024 Frances Chase Charcot's joint, lef t [...] Insured Coverage Start Date Coverage End Date [facility] [address] [address] [place], [place] [id number] Celina Gaspar Self - patient is the insured Medical (General) History Medical History History ICD Code Gout M10.9 MRSA (methicillin resistant Staphylococc us aureus) A49.02 Kidney disease, chronic, stage II (mild, EGFR 60+ ml/min) N18.2 Neuropathy G62.9 Spondylitis M46.90 Radiculopathy M54.10 Charcot''s joint of left ankle M14.672 Charcot''s joint of left foot M14.672 Surgical History Surgery Date(Month/Year) carpal tunnel bilateral hands cholecystomy left midfoot osteotomy and charcot recon struction 02/15/2024 back surgery hysterectomy Hospitalization History Reason Date(Month/Year) see above
--- OUTSIDE RECORDS SUMMARY | 2025-05-31 09:12 | XMS_ITS | Clinical Summary ---
Author Organization [facility] Address [address] [place] [address] Care Team Providers Care Videotape Editor Name Role Phone Back, Alcides MELENDREZ Primary Care Provider [phone] Allergies No known active allergies Medications Cetirizine [...] (09/29/2017): Added automatically from request for surgery [id number] Basal cell carcinoma of skin of face [...] to complete this topic Insurance Care Teams Videotape Editor Relationship Specialty Start Date End Date Back, MD Alcides [address] [place] [address] PCP - General Internal Medicine 07/31/17
--- OUTSIDE RECORDS SUMMARY | 2025-05-31 09:12 | XMS_ITS | Encounter Summary ---
Author Organization [facility] Address [address] [place] [address] Care Team Providers Care Hand Mica Plate Layer Name Role Phone Alcides Adam MD Primary Care Provider [phone] Encounter Details Date Type Department Care Team (Latest Contact Info) Description 05/24/2025 Travel Social History Tobacco Use Types Packs/Day [...] 08/23/2025 1:00 PM EST Office Visit [facility] [address] [address] Jennie Barajas, WARP TESTER-CITY ROUTEMAN [address] [facility] [place] [address] documented as of this encounter Visit Diagnoses Not on filedocumented in this encounter Care Teams Hand Mica Plate Layer Relationship Specialty Start Date End Date Alcides Adam MD [address] [place] [address] PCP - General Family Medicine 12/08/24 documented as of this encounter
--- OUTSIDE RECORDS SUMMARY | 2025-05-31 09:12 | XMS_ITS | Clinical Summary ---
Author Organization [facility] Address [address] [place] [address] Care Team Providers Care Clean Up Supervisor Name Role Phone Felipe Adam MD Primary Care Provider [phone] Allergies Active Allergy Reactions Criticality Noted Date [...] Description 10/12/2025 10:30 AM EST Office Visit [facility] [address] [place] [address] Dimas Adair MD [address] [place] [address] Health Maintenance Due Date Last Done Comments [...] Screen Negative Negative 10/21/2017 9:47 AM EST [facility] Blood BLOOD SPECIMEN / Unknown 10/20/2017 5:25 PM EST 10/20/2017 10:58 PM EST Narrative [facility] - 10/21/2017 9:47 AM EST Test performed using [employer] Immunodiagnostic system. us Edu Parry MD LAB BLOOD ORDERABLES Lou l Result [facility] [address] [place] [address] * High Risk HPV with Genotype 16,18 (03/20/2017 12:00 AM EDT) HPV 16 Negative Negative 04/01/2017 2:01 PM EDT [facility] HPV 18 Negative Negative 04/01/2017 2:01 PM EDT [facility] HPV, Other HR Types Negative Negative 04/01/2017 2:01 PM EDT [facility] Pap, Liquid Based CERVIX UTERI STRUCTURE / Unknown 03/20/2017 03/31/2017 9:32 PM EDT Narrative [facility] - 04/01/2017 2:01 PM EDT Assay performed using [employer] 4800 system utilizing Real-Time PCR to amplify target HPV DNA. This system specifically identifies HPV16 and HPV18 while concurrently detecting the other twelve high risk types (31,33,35,39,45,51,52,56,58,59,66,68). Shanice Richard DO BODY FLUIDS AND STO OLS ORDERABLES Final Result [facility] [address] [place] [address] * Thinprep Pap Smear (03/20/2017 12:00 AM [...] HPV DNA. This system specifically identifies HPV16 [id number] while concurrently detecting the other twelve high risk types(31,33,35,39,45,51,52,56,58,59,66,68). Completed by on 2017-04-02 Electronically Signed By Arielle NEFF (ASCP) , Ultrasound Tester (Case signed 03/30/2017) The Papanicolaou smear is a screening tool, and like any screen, has an inherent false negative rate. Interpretation of results should be made in the context of patient history and clinical findings. Shanice Leemary Jose Manuel DO PATHOLOGY/CYTOLOGY ORDERABLES Final Result [facility] from Last 3 Months or Most Recently Relevant to Health Maintenance Insurance [facility] HMO/CHOICE PLUS/DULCE/DULCE PLUS Care Teams Clean Up Supervisor Relationship Specialty Start Date End Date Back, MD Felipe [address] [place] [address] PCP - General Internal Medicine 03/26/15
--- OUTSIDE RECORDS SUMMARY | 2025-05-31 09:12 | XMS_ITS | Encounter Summary ---
Author Organization [facility] Address [address] [place] [address] Care Team Providers Care Regulatory Attorney Name Role Phone Alcides Adam MD Primary Care Provider [phone] Reason for Visit * Reason Comments Med Refill Encounter Details Date Type Department Care Team (Late st Contact Info) Description 07/20/2023 [facility]ill [facility] [address] [facility] [address] [facility] [address] [place] [address] Trace Casas MD [address] [place] [place] [address] Idiopathic progressive polyneuropathy Social History Tobacco Use [...] Neurology [address] [place] [address] Jennie Barajas, ELECTRIC POWER LINE REPAIRER-COMPUTER SYSTEMS AUDITOR [address] [facility] [place], [place] [id number] documented as of this encounter Visit Diagnoses Diagnosis Idiopathic progressive polyneuropathy documented in this encounter Care Teams Regulatory Attorney Relationship Specialty Start Date End Date Back, MD Alcides [address] [place] [address] PCP - General Family Medicine 12/08/24 documented as of this encounter
--- OUTSIDE RECORDS SUMMARY | 2025-05-31 09:12 | XMS_ITS | Encounter Summary ---
Author Organization [facility] Address [address] [place] [address] Care Team Providers Care Furnace Repair Mechanic Name Role Phone Alcides Adam MD Primary Care Provider [phone] Encounter Details Date Type Department Care Team (Late Contact Info) Description 05/23/2025 Telephone [facility] [address] [place] [phone] Nash Block MD [address] [place] [address] Social History Tobacco Use Types Packs/Day Years [...] encounter Miscellaneous Notes * Telephone Encounter - Paresh Cary - 05/23/2025 9:36 AM EDT Patient same day canceled due to her foot being in a boot and cannot drive by herself. documented in this encounter Plan of Treatment Upcoming Encounters Date Type Department Care Team (Late Contact Info) Description 08/23/2025 1:00 PM EST Office Visit [facility] [address] [place] [address] Jennie Barajas, SOILS ANALYST-PT ESCORT [address] [facility] [place] [address] documented as of this encounter Visit Diagnoses Not on filedocumented in this encounter Care Teams Furnace Repair Mechanic Relationship Specialty Start Date End Date Back, MD Alcides [address] [place] [address] PCP - General Family Medicine 12/08/24 documented as of this encounter
--- OUTSIDE RECORDS SUMMARY | 2025-05-31 09:13 | XMS_ITS | Encounter Summary ---
Author Organization [facility] Address [address] [facility] [place] [address] Care Team Providers Care 4Th Grade Teacher Name Role Phone Alcides Adam MD Primary Care Provider [phone] Reason for Visit * Reason Onset Date Comments TENS 05/24/2025 Encounter Details Date Type Department Care Team (Late Contact Info) Description 05/24/2025 Telephone [facility] [address] [facility] [address] [place] [address] Gauri Jay MA TENS Social History Tobacco Use Types Packs/Day Years [...] encounter Miscellaneous Notes * Telephone Encounter - Gauri Jay MA - 05/24/2025 3:23 PM EDT TENS order faxed to [facility]. documented in this encounter Plan of Treatment Upcoming Encounters Date Type Department Care Team (Late Contact Info) Description 08/23/2025 1:00 PM EST Office Visit [facility] [address] [facility] [address] [place] [address] Jennie Barajas, RETAIL DEPARTMENT MANAGER-CARGO AGENT [address] [place] [address] documented as of this encounter Visit Diagnoses Not on filedocumented in this encounter Care Teams 4Th Grade Teacher Relationship Specialty Start Date End Date Back, MD Alcides [address] [place] [id number] PCP - General Family Medicine 12/08/24 documented as of this encounter
--- OUTSIDE RECORDS SUMMARY | 2025-05-31 09:13 | XMS_ITS | Clinical Summary ---
Author Organization [facility] Address [address] [place] [address] Care Team Providers Care Speech Language Pathologist Name Role Phone Alcides Adam MD Primary Care Provider [phone] Allergies Active Allergy Reactions Criticality Noted Date Comments Chlorhexidine Rash Low 03/03/2023 Topiramate 10/29/2023 Made her feel overly thirsty and caused bad smell and taste. Medications sertraline (Zoloft) 100 MG tablet 02/26/20 23 Active gemfibrozil (Lopid) 600 MG tablet 02/13/20 23 Active fluticasone (Flonase) 50 MCG/ACT nasal spray Administer 2 sprays into each nostril Daily 09/22/20 22 Active cholecalciferol (Vitamin D-3) 50 MCG (2000 UT) tablet Take by mouth Activ e cetirizine [...] migraine. 16 tablet 11 10/31/19 25 Active nortriptyline (Pamelor) 50 MG capsuleIndicati [...] nightly 90 tablet 1 03/14/20 25 Active dapagliflozin (Farxiga) 10 MG Take 10 mg by mouth in the morning. 04/18/20 25 Active sulfamethoxazol e-trimethoprim (Bactrim) 400-80 MG tablet Take by mouth Active clindamycin (Cleocin) 300 MG capsule Take 300 mg by mouth in the morning and 300 mg at noon and 300 mg in the evening and 300 mg before bedtime. Active baclofen (Lioresal) 10 MG tabletIndicatio ns:Cervical paraspinal muscle spasm TAKE 2 TABLETS BY MOUTH AT BEDTIME FOR 30 DAYS 60 tablet 3 05/24/20 25 Active diclofenac sodium 1 % gel 01/07/20 23 025 Discontin ued(Thera py completed ) baclofen (Lioresal) 10 MG tabletIndicatio ns:Cervical paraspinal muscle spasm TAKE 2 TABLETS BY MOUTH AT BEDTIME FOR 30 DAYS 60 tablet 3 12/17/19 25 025 Discontin ued(Reord er) alendronate (Fosamax) 70 MG tablet 1 tablet 30 minutes before the first food, beverage or medicine of the day with plain water Orally weekly for 94 days 07/01/20 24 025 Discontin ued(Thera py completed ) Active Problems Problem Noted Date Diagnosed Date [...] Orders: Ambulatory referral to Neurology Epidural abscess ([facility]) 08/20/2018 Septic arthritis 08/20/2018 Abdominal pain 05/04/2018 Pure hyperglyceridemia 05/04/2018 Pyelonephritis 05/04/2018 Neoplasm of uncertain behavior of skin 8 Peripheral neuropathy 12/01/2017 Basal cell carcinoma of skin of face 09/16/2017 Overview (03/08/2023): Added automatically from request for surgery [id number] Overview: Added automatically from request for surgery [id number] Mixed hyperlipidemia 03/19/2017 Carpal tunnel syndrome of right wrist 03/05/2017 Vitamin D deficiency 09/11/2014 GERD (gastroesophageal reflux disease) 4 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 06/09/2014 Chronic renal impairment, stage 3 (moderate) 02/2014 Thoracic degenerative disc disease 05/09/2014 Seasonal allergies 01/13/2014 CRI (chronic renal insufficiency) 10/25/2013 Depression with anxiety 06/24/2013 Hyperglycemia 06/24/2013 Fatigue 07/20/2012 Encounters Date Type Department Care Team Description 05/24/2025 12:30 PM EDT Ancillary Procedure [facility] [address] [facility] [address] [place] [address] Cervical paraspinal muscle spasm 05/24/2025 11:30 AM EDT Office Visit [facility] [address] [facility] [address] [place] [address] Jennie Barajas, TURRET PUNCH OPERATOR-LOAD OUT SUPERVISOR BUCK (obstructive sleep apnea) (Primary Dx); Cervical paraspinal muscle spasm; Cervical radiculopathy 05/24/2025 Telephone [facility] [address] [facility] [address] [place] [address] Gauri Jay MA TENS 05/24/2025 Bamboo flowsheet [facility] [address] [place] [address] Jennie Barajas, TURRET PUNCH OPERATOR-LOAD OUT SUPERVISOR 05/24/2025 Travel 05/23/2025 Telephone [facility] [address] [facility] [address] [place] [address] Nash Block MD 04/20/2025 12:45 PM EDT Office Visit [facility] [address] [facility] [place] [address] Robbin Wasserman DPM MRSA (methicillin resistant staph aureus) culture positive (Primary Dx); Right foot pain; Skin ulcer of toe of right foot with fat layer exposed (HCC); Idiopathic progressive polyneuropathy; Infection of toe; Charcot arthropathy of midfoot; Ulcer of left foot, limited to breakdown of skin (HCC); Closed nondisplaced fracture of second metatarsal bone of right foot, initial encounter 04/20/2025 Bamboo flowsheet [facility] [address] [place] [address] Robbin Wasserman, INDER 04/20/2025 Travel 04/19/2025 Travel 04/12/2025 Results Follow-Up [facility] [address] [place] [address] Robbin Wasserman DPM MRI FOOT RIGHT W WO CONTRAST 04/12/2025 Clinisync Result Encounter [facility] External Department Unsolicited Robbin Wasserman DPM 04/11/2025 Telephone [facility] [address] [place] [address] Robbin Wasserman DPM 04/11/2025 Clinisync Result Encounter [facility] External Department Unsolicited Robbin Wasserman DPM 04/06/2025 5:10 PM EDT Ancillary Procedure [facility] [address] [place] [address] 04/06/2025 4:30 PM EDT Office Visit [facility] [address] [place] [address] Robbin Wasserman DPM Right foot pain (Primary Dx); Skin ulcer of toe of right foot with fat layer exposed (HCC); Infection of toe; Idiopathic progressive polyneuropathy; Generalized edema 04/06/2025 Bamboo flowsheet [facility] [address] [place] [address] Robbin Wasserman DPM 04/06/2025 Travel 03/14/2025 12:00 PM EDT Office Visit [facility] [address] [place] [address] Nash Block MD BUCK (obstructive sleep apnea) (Primary Dx); Claustrophobia ; Hypersomnia 03/14/2025 Bamboo flowsheet [facility] [address] [place] [address] Nash Block MD 03/14/2025 Travel from Last [...] Pressure 120/80 05/24/2025 11:47 AM EDT Pulse 101 04/20/2025 12:32 PM EDT Temperature - - Respiratory Rate 18 05/24/2025 11:47 AM EDT Oxygen Saturation 98% 05/24/2025 11:47 AM EDT Inhaled Oxygen Concentration - - Weight 95.3 kg (210 lb) 05/24/2025 11:47 AM EDT Height 157.5 cm (5' 2 ) 05/24/2025 11:47 AM EDT Body Mass Index 38.41 05/24/2025 11:47 AM EDT Plan of Treatment Upcoming Encounters Date Type Department Care Team (Late st Contact Info) Description 08/23/2025 1:00 PM EST Office Visit [facility] [address] [place] [address] Jennie Barajas, TURRET PUNCH OPERATOR-LOAD OUT SUPERVISOR [address] [facility] [place] [address] Procedures Procedure Name Priority Date/Time Associated Diagnosis Comments XR CERVICAL SPINE COMPLETE 4-5 VIEWS Routine 05/24/2025 12:45 PM EDT Cervical paraspinal muscle spasm MRI FOOT RIGHT W WO CONTRAST 04/12/2025 6:48 AM EDT MHPT BUN + CREATININE Routine 04/11/2025 11:16 AM EDT XR FOOT 1-2 VIEWS RIGHT Routine 04/06/2025 5:06 PM EDT Right foot pain from Last 3 Months Results * XR cervical spine complete 4 [...] BY: Gregorio Davila DO us Jennie Barajas TURRET PUNCH OPERATOR-LOAD OUT SUPERVISOR IMG XR PROCEDURES Lou l Result * MRI FOOT RIGHT W WO CONTRAST [...] by: Hesham Mcarthur MD 04/12/25 Final result Robbin Wasserman DPM [facility] Final Result * [...] 04/11/2025 11:39 AM EDT Original Ordering Provider: ROBBIN WASSERMAN Robbin Wasserman DPM [facility] Final R esult [facility] * XR foot 1 or 2 views right (04/06/2025 5:06 PM EDT) Anatomical Region Laterality Modality Lower Extremities, Foot Right Radiogra phic Imaging Narrative 04/10/2025 9:41 AM EDT Imaging Result: XRAY RIGHT FOOT: AP/OBL- No fx. Lis franc diastasis concern with deformity. DP 2 mild cortical disruption 1-2mm possible. No bone density changes Robbin Wasserman DPM IMG XR PROCEDURES Final Result from Last [address] [facility] Care Teams Speech Language Pathologist Relationship Specialty Start Date End Date Back, MD Alcides [address] [place], [place] [id number] PCP - General Family Medicine 12/08/24
--- OUTSIDE RECORDS SUMMARY | 2025-05-31 09:13 | XMS_ITS | Encounter Summary ---
Author Organization [facility] Address [address] [place] [address] Care Team Providers Care Dietitian Teaching Name Role Phone Felipe Adam MD Primary Care Provider [phone] Encounter Details Date Type Department Care Team (Late st Contact Info) Description 05/01/2015 Abstract [facility] [address] [place] [address] Hali Gallegos MA Social History Tobacco Use [...] Description 10/12/2025 10:30 AM EST Office [facility] [address] [facility] [place] [address] Dimas Adair MD [facility] [address] [place] [phone] documented as of this encounter Visit Diagnoses Not on filedocumented in this encounter Care Teams Dietitian Teaching Relationship Specialty Start Date End Date Back, MD Felipe [address] [phone] PCP - General Internal Medicine 03/26/15 documented as of this encounter
--- OUTSIDE RECORDS SUMMARY | 2025-05-31 09:13 | XMS_ITS | Encounter Summary ---
Author Organization [facility] Address [address] [place] [address] Care Team Providers Care Tax Staff Accountant Name Role Phone Alcides Adam MD Primary Care Provider [phone] Encounter Details Date Type Department Care Team (Late st Contact Info) Description 05/24/2025 Bamboo flowsheet [facility] [address] [place] [address] Jennie Barajas, PROJECT CONTROLS SPECIALIST-DOCUMENTATION SPEC [address] [place] [address] Social History Tobacco Use Types Packs/Day Years [...] Office Visit [facility] [address] [facility] [place] [address] Jennie Barajas, PROJECT CONTROLS SPECIALIST-DOCUMENTATION SPEC [address] [place] [address] documented as of this encounter Visit Diagnoses Not on filedocumented in this encounter Care Teams Tax Staff Accountant Relationship Specialty Start Date End Date Alcides Adam MD [address] [place] [phone] PCP - General Family Medicine 12/08/24 documented as of this encounter
--- OUTSIDE RECORDS SUMMARY | 2025-05-31 09:16 | XMS_ITS | CCD ---
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 Name Role Phone Back, Felipe Unavailable Unavailable [...] Admitting Unavailable CURT SUMMERS Referring Unavailable BACK, EFLIPE Primary Care Unavailable MORGAN LUIS Consulting Unavailable [...] Care Unavailable Back, Felipe Primary Care Provider [phone] Back, Felipe Primary Care Provider Back, Felipe Primary Care Provider Unavailabl e Back , Felipe Primary Care Provider Back , Felipe Primary Care Provider [phone] Back , Felipe Primary Care Provider BACK, FELIPE Primary Care Unavailable MUTNAL, AMAR Admitting Unavailable MUTNAL, AMAR Attending Unavailable Back , Felipe Primary Care Provider NON STAFF Primary Care Provider UnavailMD Tiffanie Mixon. Attending Provider Back , Felipe Primary Care Provider YOON COBB Referring Unavailable BACK, FELIPE Primary Care Unavailable Back , Felipe Primary Care Provider [phone] [place] Attending Unavail able BACK, FELIPE Primary Care Unavailable Back , Felipe Primary Care Provider [phone] FRANCES HARRIS Admitting Unavailable FRANCES HARRIS Attending Unavailable FRANCES HARRIS Consulting Unavailable FRANCES HARRIS Admitting Unavailable FRANCES HARRIS Attending Unavailable [facility], DR PIPER Ackerman Consulting Unavailable HIGHLFRANCES HERNANDEZ Consulting Unavailable HIGHLFRANCES HERNANDEZ Admitting Unavailable FRANCES HARRIS Attending Unavailable [place], DR EMILY Riojas Consulting Unavailable FRANCES HARRIS Consulting Unavailable Back , Felipe Primary Care Provider [phone] BACK, FELIPE Primary Care Unavailable ROBBIN SHOOK II Attending Un available Back , Felipe Primary Care Provider INDER Harris Attending Provider Frances Harris Attending Unavailable Frances Harris Admitting Unavailable Unavailable Primary Care Provider Unavailabl e BACK FELIPE Referring Unavailable BACK, FELIPE Primary Care Unavailable BACK, FELIPE Admitting Unavailable SHERMAN ADAIR Attending Unavailable Back , Bill Primary Care Provider [phone] BACK, FELIPE Primary Care Unavailable TONGSEVERO OLEA Attending Unavailable BACK, FELIPE Referring Unavailable BACK, [...] Primary Care Unavailable FRANCES HARRIS Referring Unavailable FOZIA MENG Attending Unavailable LYNN BLOCK Attending Unavailable FOZIA MENG Referring Unavailable TIFFANIE CASAS Attending Unavailable LYNN BLOCK Attending Unavailable ROBBIN SÁNCHEZ Attending UnavailROBBIN Otero Referring Unavailabl e ROBBIN SÁNCHEZ Attending Unavailabl e VAN, JENNIE Attending Unavailable REHAN JENNIE Referring Unavailable TIFFANIE CASAS Attending Unavailable FOZIA MENG Attending Unavailable Allergies Allergy Classification Reported Allergen(s) Allergy Type Date of Onset Reaction(s) Facility (20 sources) Chlorhexidine; Translations: [CHLORHEXIDINE] Drug Allergy 3 [facility] (10 sources) topiramate; Translations: [TOPIRAMATE] Drug Allergy 4 Other (See Comments) [facility] (20 sources) Topiramate Propensity to adverse reactions 4 [facility] (1 source) Chlorhexidine; Translations: [Chlorhexidine Gluconate] Drug Allergy [facility] Repository Medications Current Medications Medication Drug Class(es) [...] needed. Active ALPRAZolam 0.25 mg oral tablet (18 sources) Benzodiazepine Start: 03-14-2025 ALPRAZolam (Xanax) 0.25 MG tablet Indications: Claustrophobia Take 1 tab 30-45 min before PAP therapy nightly 90 tablet 1 03/14/2025 Active amoxicillin 875 mg / clavulanate 125 mg oral tablet (1 source) Penicillin-class Antibacterial Start: 08-08-2020 End: 08-15-2020 take 1 tablet by mouth twice daily amoxicillin-clavul anate (AUGMENTIN) 875-125 MG per tablet Indications: Bacterial sinusitis Take 1 tablet by mouth 2 times daily for 7 days 14 tablet 0 08/08/2020 08/15/2020 Active 24 hr amphetamine aspartate 5 mg / amphetamine sulfate 5 mg / dextroamphetamine saccharate 5 mg / dextroamphetamine sulfate 5 mg extended release oral capsule (4 sources) Central Nervous System Stimulant Start: 02-25-2023 End: 10-11-2024 dextroamphetamine- amphetamine (ADDERALL XR) 20 MG 24 hr capsule [...] (20 sources) gamma-Aminobutyric Acid-ergic Agonist Start: 12-16-2024 End: 05-24-2025 take 2 tablets by mouth at bedtime baclofen (Lioresal) 10 MG tablet Indications: Cervical paraspinal muscle spasm TAKE 2 TABLETS BY MOUTH AT BEDTIME FOR 30 DAYS 60 tablet 3 05/24/2025 Active Start: 02-26-2023 take 2 tablets by mo uth at bedtime baclofen (Lioresal) 10 MG tablet Indications: Cervical paraspinal muscle spasm TAKE 2 TABLETS BY MOUTH AT BEDTIME FOR 30 DAYS 60 tablet 3 07/12/2024 Active Start: 04-19-2022 [facility] baclofen (LIORESAL) 10 MG tablet [...] Start: 08-07-2022 take 1 capsule by [facility] once daily as needed for urinary [...] 09/11/2014 Active cholecalciferol (Vitamin D-3) 50 MCG (1999 UT) tablet Take by mouth Active cholecalciferol, vitamin D3, (VITAMIN D3) 2,000 unit Tab Take by mouth. Active clindamycin 300 mg oral capsule (12 sources) Lincosamide Antibacterial Start: 04-04-2025 End: 04-18-2025 clindamycin (CLEOCIN) 300 MG capsule 04/13/2025 Active Start: 07-26-2019 clindamycin (C LEOCIN) 150 MG capsule cyclobenzaprine hydrochloride 5 mg oral tablet (16 sources) Muscle Relaxant take 0.5 tablet by mouth once daily cyclobenzaprine (FLEXERIL) 5 MG tablet Take 5 mg by mouth nightly 1/2 tablet every night 0 Active dapagliflozin 10 mg oral tablet (3 sources) Sodium-Glucose Cotransporter 2 Inhibitor Start: take 10 mg by mouth in the morning dapagliflozin (Farxiga) 10 MG Take 10 mg by mouth in the morning. 04/18/2025 Active 24 hr desvenlafaxine succinate 25 mg extended release oral tablet (1 source) Serotonin and Norepinephrine Reuptake Inhibitor Start: desvenlafaxine succinate (PRISTIQ) 25 MG TB24 extended release tablet 25 mg daily 0 07/29/2021 Active dextromethorphan hydrobromide 15 mg / guaiFENesin 400 mg / pseudoephedrine hydrochloride 60 mg oral tablet (1 source) alpha-Adrenergic Agonist, Uncompetitive D-ujblcn-V-aspartate Receptor Antagonist, Sigma-1 Agonist Start: End: take 1 tablet by mouth every six hours as needed Nbparwxvorskomb-YU-QW (CAPMIST DM) 60-15-400 MG TABS Take 1 tablet by mouth every 6 hours as needed (Sinus pressure) 28 tablet 0 02/13/2021 02/20/2021 Active doxycycline hyclate 100 mg oral capsule (15 sources) Tetracycline-class Drug Start: End: take 1 capsule by mouth twice daily doxycycline hyclate (VIBRAMYCIN) 100 MG capsule Indications: MRSA (methicillin resistant Staphylococcus aureus) septicemia (HCC) Take 1 capsule by mouth 2 times daily 180 capsule 3 07/28/2019 07/27/2020 Active DULoxetine 30 mg delayed release oral capsule (6 sources) Serotonin and Norepinephrine Reuptake Inhibitor Start: 07-16-2 022 DULoxetine (CYMBALTA) 30 MG extended release capsule [...] (20 sources) Histamine-2 Receptor Antagonist Start: 07-13-2023 take [...] 2 spray(s) nasal route once daily fluticasone (Flonase) 50 MCG/ACT [...] Start: 06-09-2017 gemfibrozil (Lopid) 600 MG tablet 02/12/2023 Active lansoprazole 30 mg delayed release oral [...] End: 02-13-2026 take 3 capsules by mouth at bedtime nortriptyline (Pamelor) 50 MG capsule Indications: Idiopathic progressive polyneuropathy , Intractable 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 Take 3 capsules (150 mg) by mouth at bedtime 270 capsule 3 02/13/2025 02/13/2026 Active Start: 09-14-2024 End: 11-02-2025 [...] (BMI) of 38.0 to 38.9 in adult ([facility]) Take 1 tablet by mouth every morning [...] (BMI) of 40.0 to 44.9 in adult ([facility]) Take 1 capsule by mouth every morning [...] End: 10-31-2025 take 1 capsule by mouth in the morning pregabalin (Lyrica) 300 MG capsule Indications: Idiopathic progressive polyneuropathy , Non-seasonal allergic rhinitis due to pollen Take 1 capsule (300 mg) by mouth in the morning and 1 capsule (300 mg) before bedtime. 180 capsule 3 10/31/2024 10/31/2025 Active Start: 08-25-2018 take 1 capsule by mo ut three times daily pregabalin (LYRICA) 150 MG capsule Indications: Epidural abscess , Discitis of thoracic region , Infection of thoracic spine ([facility]) , Peripheral polyneuropathy Take 1 capsule by [...] End: 02-13-2026 take 1 tablet by mouth in the morning, then take 1 tablet by mouth in the evening, then take 1 tablet by mouth at bedtime rOPINIRole (Requip) 1 MG tablet Indications: Restless Leg Syndrome Take 1 tablet (1 mg) by mouth in the morning and 1 tablet (1 mg) in the evening and 1 tablet (1 mg) before bedtime. 270 tablet 3 02/13/2025 02/13/2026 Active Start: 12-26-2020 rOPINIRole (RE QUIP) 0.5 MG tablet take 1 tablet by prabhjot twice daily rOPINIRole (REQUIP) 0.5 MG tablet Take 0.5 mg by mouth 2 times daily 0 Active sertraline 100 mg oral tablet (20 sources) Serotonin Reuptake Inhibitor Start: 02-25-2023 sertraline (Zoloft) 100 MG tablet 02/25/2023 Active Start: 07-30-2020 take 2 tablets by mo [facility] once daily sertraline (ZOLOFT) 100 MG tablet Take 2 tablets by mouth daily Currently decreasing this medication 07/30/2020 Active Start: 07-30-2020 take 1 tablet by [facility] once daily sertraline (ZOLOFT) 100 MG tablet Take 100 mg by mouth daily Currently decreasing this medication 0 07/30/2020 Active Start: 07-06-2019 take 2 tablets by [facility] once daily sertraline (ZOLOFT) 50 MG [...] mg / trimethoprim 160 mg oral tablet (7 sources) Dihydrofolate Reductase Inhibitor Antibacterial, Sulfonamide Antimicrobial [...] intercourse 30 tablet 2 08/01/2021 10/30/2021 Active sulfamethoxazole -trimethoprim (Bactrim) 400-80 MG tablet Take by mouth Active thiamine 100 mg oral tablet (6 [...] Drug Class(es) Dates Sig (Normalized) Sig (Original) alendronic acid 70 mg oral tablet (2 sources) Bisphosphonate Start: 07-01-2024 End: 05-24-2025 take 1 tablet by mouth once daily alendronate (Fosamax) 70 MG tablet 1 tablet 30 minutes before the first food, beverage or medicine of the day with plain water Orally weekly for 94 days 07/01/2024 05/24/2025 Discontinued (Therapy completed) cetirizine hydrochloride 10 mg oral capsule (20 [...] Antimicrobial Indications: Skin and Soft Tissue Infection diclofenac sodium 0.01 mg/mg topical gel (20 sources) Nonsteroidal Anti-inflammatory Drug Start: 01-06-2023 End: 05-24-2025 diclofenac sodium 1 % gel 01/06/2023 05/24/2025 Discontinued (Therapy completed) Start: 05-19-2019 diclofenac sod ium 1 % GEL gadobenate dimeglumine (MULTIHANCE) injection 10 mL (2 [...] Onset: 3 Episodic Other connective tissue disease (20 sources) Spasm of cervical paraspinous muscle; Translations: [Other muscle spasm] Onset: 3 05-20-2023 Episodic Other connective tissue disease (8 sources) [...] Edema, generalized; Translations: [Generalized edema] 04-10-2025 Episodic Skin and subcutaneous tissue infections (4 [...] Translations: [Acute thoracic back pain] Onset: 9 03-08-2023 Episodic Thyroid disorders (20 sources) Thyroid nodule; Translations: [Nontoxic single thyroid nodule] Onset: 2 05-27-2022 Chronic Unclassified (1 source) Pressure-induced deep tissue damage of other site; Translations: [Pressure-induced deep tissue damage of other site] Onset: 5 Viral infection (1 source) Viral disease; Translations: [...] of skin] Onset: 02-05-2018 08-03-2017 Episodic Other WASTE SPECIALIST infection and poliomyelitis (20 sources) Extradural [...] Onset: 03-08-2023 08-18-2018 Episodic Residual codes; unclassified (20 sources) Insomnia; Translations: [Insomnia, unspecified] Onset: 03-08-2023 03-08-2023 Episodic Septicemia (except in labor) (20 sources) Sepsis; Translations: [Methicillin resistant Staphylococcus aureus infection] Onset: 08-15-2018 Resolved: 05-11-2020 08-15-2018 Episodic Unclassified (1 source) Patient encounter status 02-15-2025 Urinary tract infections (20 sources) Acute cystitis; Translations: [Acute cystitis with hematuria] Onset: 05-04-2018 Episodic Results Test Name Value Interpretation Reference Range Facility XR CERVICAL SPINE COMPLETE 4 -5 VIEWSon 05-24-2025 XR CERVICAL SPINE COMPLETE 4-5 VIEWS EXAMINATION: XR CERVICAL SPINE COMPLETE 4-5 VIEWS [...] Prevertebral soft tissues have a normal appearance. IMPRESSION: No acute osseous abnormality. ELECTRONICALLY SIGNED BY: Gregorio Davila, DO Normal Not Available Basic Metabolic Panelon 05-05 Anion gap [Moles/Vol] 12 mmol/L 9 - 17 mmol/L [facility] Calcium [Mass/Vol] 9.3 mg/dL 8.6 - 10. 4 mg/dL [facility] [employer] [facility] Chloride [Moles/Vol] 104 mmol/L 98 - 10 7 mmol/L [facility] CO2 [Moles/Vol] 22 mmol/L 20 - 31 mmol/L [facility] Creatinine [Mass/Vol] 1.3 mg/dL High 0.5 - 0.9 mg/dL [facility] Sariah Hahnt Rate 52 Low - PINF [facility] Comment on above: These results are [...] 131 mg/dL High 70 - 99 mg/dL [facility] Potassium [Moles/Vol] 4.4 mmol/L 3.7 - 5.3 mmol/L [facility] Sodium [Moles/Vol] 138 mmol/L 135 - 144 mmol/L [facility] Urea nitrogen [Mass/Vol] 17 mg/dL 6 - 20 mg/dL [facility] Basic Metabolic Profon 05-15 Anion gap [Moles/Vol] 12 mmol/L Normal 9-17 [facility] Comment on above: Performed By: #### C BC, SED, MORPHX, CRP, BMP ####[facility] [id number] [place], [place] [id number] Lab Director: Emily George MD Calcium [Mass/Vol] 9.3 mg/dL Normal 8.6-10.4 [facility] Comment on above: Performed By: #### C BC, SED, MORPHX, CRP, BMP ####[facility] [id number] [facility] [place], [place] [id number] lab Director: Emily George MD Chloride [Moles/Vol] 104 mmol/L Normal 98-107 [facility] Comment on above: Performed By: #### C BC, SED, MORPHX, CRP, BMP ####[facility] [id number] [place] [address] lab Director: Emily George MD CO2 [Moles/Vol] 22 mmol/L Normal 20-31 [facility] Comment on above: Performed By: #### C BC, SED, MORPHX, CRP, BMP ####[facility] [id number] [place] [address] lab Director: Emily George MD Creatinine [Mass/Vol] 1.3 mg/dL High 0.5-0.9 [facility] Comment on above: Performed By: #### C BC, SED, MORPHX, CRP, BMP ####[facility] [id number] [place] [address] lab Director: Emily George MD GFR/1.73 sq M.predicted among non-blacks MDRD (S/P/Bld) [Vol rate/Area] 52 mL/min/{1.73_m2} Low >60 [facility] Comment on above: Result Comment: [...] #### C BC, SED, MORPHX, CRP, BMP ####[facility] [id number] [place] [address] lab Director: Emily George MD Glucose [Mass/Vol] 131 mg/dL High 70-99 [facility] Comment on above: Performed By: #### C BC, SED, MORPHX, CRP, BMP ####[facility] [id number] [place] [address] lab Director: Emily George MD Potassium [Moles/Vol] 4.4 mmol/L Normal 3.7-5.3 [facility] Comment on above: Performed By: #### C BC, SED, MORPHX, CRP, BMP ####[facility] [id number] [place], [place] [id number] lab Director: Emily George MD Sodium [Moles/Vol] 138 mmol/L Normal 135-144 [facility] Comment on above: Performed By: #### C BC, SED, MORPHX, CRP, BMP ####[facility] [id number] [place] [address] lab Director: Emily George MD Urea nitrogen [Mass/Vol] 17 mg/dL Normal 6-20 [facility] Comment on above: Performed By: #### C BC, SED, MORPHX, CRP, BMP ####[facility] [id number] [place], [place] [id number] lab Director: Emily George MD C-Reactive Proteinon 025 CRP High sensitivity method [Mass/Vol] 6.2 mg/L High 0.0 - 5.0 mg/L [facility] CRP [Mass/Vol] 6.2 mg/L High 0.0-5.0 [facility] Comment on above: Performed By: #### C BC, SED, MORPHX, CRP, BMP ####[facility] [id number] [place], [place] [id number] lab Director: Emily George MD CBCon 05-15-2025 Erythrocyte distribution width (RBC) [Ratio] 19.4 % High 12.1 - 15.2 % [facility] Hematocrit (Bld) [Volume fraction] 32.3 % Low 36.0 - 46.0 % [facility] Hemoglobin (Bld) [Mass/Vol] 9.9 g/dL Low 12.0 - 16.0 g/dL [facility] Interpretation and review of laboratory results Abnormal [facility] MCH (RBC) [Entitic mass] 28.0 pg 26.0 - 34.0 pg [facility] MCHC (RBC) [Mass/Vol] 30.7 g/dL Low 31.0 - 37.0 g/dL [facility] MCV (RBC) [Entitic vol] 91.2 fL 80.0 - 100.0 fL [facility] Platelet mean volume (Bld) [Entitic vol] 11.7 fL 6.0 - 12.0 fL [facility] Platelets (Bld) [#/Vol] 154 10*3/uL [facility] RBC (Bld) [#/Vol] 3.54 10*6/uL Low 4.00 - 5.2 0 m/uL [facility] WBC other (Bld) [#/Vol] 3.8 [facility] Erythrocyte distribution width (RBC) [Ratio] 19.4 % High 12.1-15.2 [facility] Comment on above: Performed By: #### C BC, SED, MORPHX, CRP, BMP ####[facility] [id number] [place] [address] lab Director: Emily George MD Hematocrit (Bld) [Volume fraction] 32.3 % Low 36.0-46.0 [facility] Comment on above: Performed By: #### C BC, SED, MORPHX, CRP, BMP ####[facility] [address] [place] [address] lab Director: Emily George MD Hemoglobin (Bld) [Mass/Vol] 9.9 g/dL Low 12.0-16.0 [facility] Comment on above: Performed By: #### C BC, SED, MORPHX, CRP, BMP ####[facility] [id number] [place] [address] lab Director: Emily George MD MCH (RBC) [Entitic mass] 28.0 pg Normal 26.0-34.0 [facility] Comment on above: Performed By: #### C BC, SED, MORPHX, CRP, BMP ####[facility] [id number] [place] [address] Lab Director: Emily George MD MCHC (RBC) [Mass/Vol] 30.7 g/dL Low 31.0-37.0 [facility] Comment on above: Performed By: #### C BC, SED, MORPHX, CRP, BMP ####[facility] [address] [place], [place] [id number] Director: Emily George MD MCV (RBC) [Entitic vol] 91.2 fL Normal 80.0-100.0 [facility] Comment on above: Performed By: #### C BC, SED, MORPHX, CRP, BMP ####[facility] [address] [place] [address] Lab Director: Emily George MD Platelet mean volume (Bld) [Entitic vol] 11.7 fL Normal 6.0-12.0 [facility] Comment on above: Performed By: #### C BC, SED, MORPHX, CRP, BMP ####[facility] [address] [place] [address] Lab Director: Emily George MD Platelets (Bld) [#/Vol] 154 10*3/uL Normal 140-450 [facility] Comment on above: Performed By: #### C BC, SED, MORPHX, CRP, BMP ####[facility] [id number] [place], [place] [id number] Director: Emily George MD RBC (Bld) [#/Vol] 3.54 10*6/uL Low 4.00-5.20 [facility] Comment on above: Performed By: #### C BC, SED, MORPHX, CRP, BMP ####[facility] [id number] [place] [address] Lab Director: Emily George MD WBC (Bld) [#/Vol] 3.8 10*3/uL Normal 3.5-11.0 [facility] Comment on above: Performed By: #### C BC, SED, MORPHX, CRP, BMP ####[facility] [id number] [place] [place], [place] [id number] Lab Director: Emily George MD MORPHOLOGY CHECKon 5 Morphology Rehan (Bld) [Interp] MODERATE ANISOCYTOSIS [facility] Morphology Checkon 5 Morphology Rehan (Bld) [Interp] MODERATE Normal [facility] Comment on above: Result Comment: ANIS OCYTOSIS Performed By: #### C BC, SED, MORPHX, CRP, BMP ####[facility] [id number] [place], [place] [id number] Lab Director: Emily George MD No Panel Informationon 05-15 Interpretation and review of laboratory results Abnormal [facility] Sedimentation Rateon 025 Sedimentation Rate 19 mm/Hr Normal 0-20 [facility] Comment on above: Performed By: #### C BC, SED, MORPHX, CRP, BMP ####[facility] [id number] [place] [address] Lab Director: Emily George MD ESR Photometric method (Bld) [Velocity] 19 [facility] Comp Metabolic Profon 2024 Albumin [Mass/Vol] 4.2 g/dL Normal 3.5-5.2 [facility] Comment on above: Performed By: #### L IPR, GLYHGB #### [facility] [address] [place] [address] Miniature Set Constructor: Placido Pierce MD #### CP #### [facility] [address] [place] [address] Miniature Set Constructor: Emily George MD #### INSU #### [facility] [address] [place] [address] Miniature Set Constructor: Placido Pierce MD [facility] Lab [address] [place] [address] Miniature Set Constructor: Emily George MD Albumin/Glob Ratio 1.4 Normal 1.0-2.5 [facility] Comment on above: Performed By: #### L IPR, GLYHGB #### [address] [address] Miniature Set Constructor: Placido Pierce MD #### CP #### [facility] [address] [place] [address] Miniature Set Constructor: Emily George MD #### INSU #### [address] [address] Miniature Set Constructor: Placido Pierce MD [facility] [address] [place] [address] Miniature Set Constructor: Emily George MD Alkaline Phos 109 U/L High 35-104 [facility] Comment on above: Performed By: #### L IPR, GLYHGB #### [address] [address] Miniature Set Constructor: Placido Pierce MD #### CP #### [facility] [address] [place] [address] Miniature Set Constructor: Emily George MD #### INSU #### [facility] [address] [place] [address] Miniature Set Constructor: Placido Pierce MD [facility] [address] [place] [address] Miniature Set Constructor: Emily George MD ALT [Catalytic activity/Vol] 23 U/L Normal 5-33 [facility] Comment on above: Performed By: #### L IPR, GLYHGB #### [address] [place] [address] Miniature Set Constructor: Placido Pierce MD #### CP #### [facility] [address] [place] [address] Miniature Set Constructor: Emily George MD #### INSU #### [facility] [address] [place] [address] Miniature Set Constructor: Placido Pierce MD [facility] Lab [address] [place] [address] Miniature Set Constructor: Emily George MD Anion gap [Moles/Vol] 14 mmol/L Normal 9-17 [facility] Comment on above: Performed By: #### L IPR, GLYHGB #### [facility] [address] [place] [address] Miniature Set Constructor: Placido Pierce MD #### CP #### [facility] [facility] [address] [place] [address] Miniature Set Constructor: Emily George MD #### INSU #### [facility] [address] [place] [address] Miniature Set Constructor: Placido Pierce MD [facility] [address] [place] [address] Miniature Set Constructor: Emily George MD AST [Catalytic activity/Vol] 22 U/L Normal <32 [facility] Comment on above: Performed By: #### L IPR, GLYHGB #### [facility] [address] [place] [address] Miniature Set Constructor: Placido Pierce MD #### CP #### [facility] [address] [place] [address] Miniature Set Constructor: Emily George MD #### INSU #### [facility] [address] [place] [address] Miniature Set Constructor: Placido Pierce MD [facility] [address] [place] [address] Miniature Set Constructor: Emily George MD Bilirubin [Mass/Vol] 0.5 mg/dL Normal 0.3-1.2 [facility] Comment on above: Performed By: #### L IPR, GLYHGB #### [facility] [address] [place] [address] Miniature Set Constructor: Placido Pierce MD #### CP #### [facility] [address] [place] [address] Miniature Set Constructor: Emily George MD #### INSU #### [address] [address] Miniature Set Constructor: Placido Pierce MD [facility] [address] [place] [address] Miniature Set Constructor: Emily George MD Calcium [Mass/Vol] 9.4 mg/dL Normal 8.6-10.4 [facility] Comment on above: Performed By: #### L IPR, GLYHGB #### [address] [address] Miniature Set Constructor: Placido Pierce MD #### CP #### [facility] [address] [place] [address] Miniature Set Constructor: Emily George MD #### INSU #### [address] [address] Miniature Set Constructor: Placido Pierce MD [facility] [address] [place] [address] Miniature Set Constructor: Emily George MD Chloride [Moles/Vol] 99 mmol/L Normal 98-107 [facility] Comment on above: Performed By: #### L IPR, GLYHGB #### [facility] [address] [place] [address] Miniature Set Constructor: Placido Pierce MD #### CP #### [facility] [address] [place] [address] Miniature Set Constructor: Emily George MD #### INSU #### [facility] [address] [place] [address] Miniature Set Constructor: Placido Pierce MD [facility] [address] [place] [address] Miniature Set Constructor: Emily George MD CO2 [Moles/Vol] 26 mmol/L Normal 20-31 [facility] Comment on above: Performed By: #### L IPR, GLYHGB #### [address] [address] Miniature Set Constructor: Placido Pierce MD #### CP #### [facility] [address] [place] [address] Miniature Set Constructor: Emily George MD #### INSU #### [address] [address] Miniature Set Constructor: Placido Pierce MD [facility] [address] [place] [address] Miniature Set Constructor: Emily George MD Creatinine [Mass/Vol] 1.4 mg/dL High 0.5-0.9 [facility] Comment on above: Performed By: #### L IPR, GLYHGB #### [facility] [address] [place] [address] Miniature Set Constructor: Placido Pierce MD #### CP #### [facility] [address] [place] [address] Miniature Set Constructor: Emily Georeg MD #### INSU #### [facility] [address] [place] [address] Miniature Set Constructor: Placido Pierce MD [facility] [address] [place] [address] Miniature Set Constructor: Emily George MD GFR/1.73 sq M.predicted among non-blacks MDRD (S/P/Bld) [Vol rate/Area] 47 mL/min/{1.73_m2} Low >60 [facility] Comment on above: Result Comment: [...] Performed By: #### L IPR, GLYHGB #### [address] [address] Miniature Set Constructor: Placido Pierce MD #### CP #### [facility] [address] [place] [address] Miniature Set Constructor: Emily George MD #### INSU #### [address] [address] Miniature Set Constructor: Placido Pierce MD [facility] [address] [place] [address] Miniature Set Constructor: Emily George MD Glucose [Mass/Vol] 114 mg/dL High 70-99 [facility] Comment on above: Performed By: #### L IPR, GLYHGB #### [facility] [address] [place] [address] Miniature Set Constructor: Placido Pierce MD #### CP #### [facility] [address] [place] [address] Miniature Set Constructor: Emily George MD #### INSU #### [address] [address] Miniature Set Constructor: Placido Pierce MD [facility] [address] [place] [address] Miniature Set Constructor: Emily George MD Potassium [Moles/Vol] 4.1 mmol/L Normal 3.7-5.3 [facility] Comment on above: Performed By: #### L IPR, GLYHGB #### [facility] [address] [place] [address] Miniature Set Constructor: Placido Pierce MD #### CP #### [facility] [address] [place] [address] Miniature Set Constructor: Emily George MD #### INSU #### [address] [address] Miniature Set Constructor: Placido Pierce MD [facility] [address] [place] [address] Miniature Set Constructor: Emily George MD Protein [Mass/Vol] 7.2 g/dL Normal 6.4-8.3 [facility] Comment on above: Performed By: #### L IPR, GLYHGB #### [facility] [address] [place] [address] Miniature Set Constructor: Placido Pierce MD #### CP #### [facility] [address] [place] [address] Miniature Set Constructor: Emily George MD #### INSU #### [address] [address] Miniature Set Constructor: Placido Pierce MD [facility] [address] [place] [address] Miniature Set Constructor: Emily George MD Sodium [Moles/Vol] 139 mmol/L Normal 135-144 [facility] Comment on above: Performed By: #### L IPR, GLYHGB #### [facility] [address] [place] [address] Miniature Set Constructor: Placido Pierce MD #### CP #### [facility] [address] [place], [place] [phone] Miniature Set Constructor: Emily George MD #### INSU #### [facility] [address] [place], [place] [phone] Miniature Set Constructor: Placido Pierce MD [facility] [address] [place], [place] [phone] Miniature Set Constructor: Emily George MD Urea nitrogen [Mass/Vol] 18 mg/dL Normal 6-20 [facility] Comment on above: Performed By: #### L IPR, GLYHGB #### [facility] [address] [place], [place] [phone] Miniature Set Constructor: Placido Pierce MD #### CP #### [facility] [address] [place], [place] [phone] Miniature Set Constructor: Emily George MD #### INSU #### [facility] [address] [place], [place] [phone] Miniature Set Constructor: Placido Pierce MD [facility] [address] [place], [place] [phone] Miniature Set Constructor: Emily George MD [facility] Metabolic Pane [facility] 04-14-2025 Albumin [Mass/Vol] 4.2 g/dL 3.5 - 5.2 g/dL [facility] Albumin/Globulin [Mass ratio] 1.4 {ratio} 1.0 - 2.5 [facility] ALP [Catalytic activity/Vol] 109 U/L High 35 - 104 U/L [facility] ALT [Catalytic activity/Vol] 23 U/L 5 - 33 U/L [facility] Anion gap [Moles/Vol] 14 mmol/L 9 - 17 mmol/L [facility] AST [Catalytic activity/Vol] 22 U/L NINF - 32 U/L [facility] Bilirubin [Mass/Vol] 0.5 mg/dL 0.3 - 1 .2 mg/dL [facility] Calcium [Mass/Vol] 9.4 mg/dL 8.6 - 10. 4 mg/dL [facility] Chloride [Moles/Vol] 99 mmol/L 98 - 10 7 mmol/L [facility] CO2 [Moles/Vol] 26 mmol/L 20 - 31 mmol/L [facility] Creatinine [Mass/Vol] 1.4 mg/dL High 0.5 - 0.9 mg/dL [facility] Est, Glom Filt Rate 47 Low - PINF [facility] Comment on above: These results are [...] 114 mg/dL High 70 - 99 mg/dL [facility] Interpretation and review of laboratory results Abnormal [facility] Potassium [Moles/Vol] 4.1 mmol/L 3.7 - 5.3 mmol/L [facility] Protein [Mass/Vol] 7.2 g/dL 6.4 - 8.3 g/dL [facility] Sodium [Moles/Vol] 139 mmol/L 135 - 144 mmol/L [facility] Urea nitrogen [Mass/Vol] 18 mg/dL 6 - 20 mg/dL [facility] Hemoglobin A1Con 04-14-2025 Average glucose Estimated from glycated hemoglobin (Bld) [Mass/Vol] 123 mg/dL [facility] Comment on above: The ADA and AACC rec ommend providing the estimated average glucose result to permit better patient understanding of their HBA1c result. HbA1c (Bld) [Mass fraction] 5.9 % 4.0 - 6.0 % [facility] Glucose [Mass/Vol] 123 mg/dL Normal [facility] Comment on above: Result Comment: The ADA and AACC recommend providing the estimated average glucose result to permit better patient understanding of their HBA1c result. Performed By: #### L IPR, GLYHGB ####[address] [place] [address] Lab Director: Placido Pierce MD#### CP ####[facility] Qoj9822 [place] [address] Lab Director: Emily George MD#### INSU ####[facility] [place] [address] Lab Director: Placido Pierce, [facility] Obz44[address] [place] [address] Lab Director: Emily George MD HbA1c (Bld) [Mass fraction] 5.9 % Normal 4.0-6.0 [facility] Comment on above: Performed By: #### L IPR, GLYHGB ####[facility] [place] [address] Lab Director: Placido Pierce MD#### CP ####[facility] Frk0277 [place] [address] Lab Director: Emily George MD#### INSU ####[address] [address] Lab Director: Placido Pierce, [facility] Xbm9834 [place] [address] Lab Director: Emily George MD Insulinon 04-14-2025 Insulin 25.0 mU/L Normal [facility] Comment on above: Performed By: #### L IPR, GLYHGB ####[facility] [address] [place] [address] Lab Director: Placido Pierce MD#### CP ####[facility] Vcz9514 [place], [place] [phone] Director: Emily George MD#### INSU ####[facility] [place], [place] [phone] Director: Placido Pierce, [facility] [address] [place] [address] Lab Director: Emily George MD Reference Range Normal [facility] Comment on above: Result Comment: Fast in.6-24.9 30 min: 20-112 60 min: 29-88 90 min: 26-84 120 min: 22-79 Performed By: #### L IPR, GLYHGB ####[facility] [address] [place] [address] Lab Director: Placido Pierce MD#### CP ####[facility] Rck2261 [place] [address] Lab Director: Emily George MD#### INSU ####[address] [phone] Director: Placido Pierce, [facility] Nhm8087 [facility] [address] Lab Director: Emily George MD Collection Info. FASTING Normal [facility] Comment on above: Performed By: #### L IPR, GLYHGB ####[facility] [address] [place], [place] [phone] Director: Placido Pierce MD#### CP ####[facility] Uxg6[address] [place], [place] [phone] Director: Emily George MD#### INSU ####[facility] [place] [address] [phone] Director: Placido Pierce, [facility] Llt2262 [place], [place] [phone] Director: Emily George MD Insulin, Totalon 04-14-2025 Insulin 25.0 mU/L [facility] Insulin Comment FASTING [facility] Insulin Reference Range: [facility] Comment on above: Fastin.6-24.9 30 min: 20-112 60 min: 29-88 90 min: 26-84 120 min: 22-79 Lipid Panelon 04-14-2025 Cholesterol [Mass/Vol] 158 mg/dL 0 - 199 mg/dL [facility] Comment on above: Cholesterol Guidelines: <200 Desirable 200-240 Borderline >240 Undesirable Cholesterol in HDL [Mass/Vol] 31 mg/dL Low 40 - PINF mg/dL [facility] Comment on above: HDL Guidelines: <40 Undesirable 40-59 Borderline >59 Desirable Cholesterol in LDL [Mass/Vol] 59 mg/dL 0 - 100 mg/dL [facility] Comment on above: LDL Guidelines: <100 Desirable 100-129 Near to/above Desirable 130-159 Borderline >159 Undesirable Direct (measured) LDL and calculated LDL are not interchangeable tests. Cholesterol in VLDL [Mass/Vol] 68 mg/dL High 1 - 30 mg/dL [facility] Cholesterol.total/Chol esterol in HDL [Mass ratio] 5.1 {ratio} High NINF - 5.0 [facility] Interpretation and review of laboratory results Abnormal [facility] Triglyceride [Mass/Vol] 341 mg/dL High NINF - 150 mg/dL [facility] Comment on above: Triglyceride Guidelines: <150 Desirable 150-199 Borderline 200-499 High >499 Very high Based on AHA Guidelines for fasting triglyceride, July 2012. Lipid Profileon 04-14-2025 Cholesterol [Mass/Vol] 158 mg/dL Normal 0-199 [facility] Comment on above: Result Comment: Cholesterol Guidelines: <200 Desirable 200-240 Borderline >240 Undesirable Performed By: #### L IPR, GLYHGB ####[facility] [address] [place] [address] Lab Director: Palcido Pierce MD#### CP ####[facility] [address] [place], [place] [phone] Lab Director: Emily George MD#### INSU ####[facility] [address] [place] [address] Lab Director: Placido Pierce, [facility] Nrh9706 [place] [address] Lab Director: Emily George MD Cholesterol in HDL [Mass/Vol] 31 mg/dL Low >40 [facility] Comment on above: Result Comment: HDL Guidelines: <40 Undesirable 40-59 Borderline >59 Desirable Performed By: #### L IPR, GLYHGB ####[facility] [place] [address] Lab Director: Placido Pierce MD#### CP ####[facility] Ksf0536 [place] [address] Lab Director: Emily George MD#### INSU ####[address] [address] Lab Director: Placido Pierce, [facility] Zhg2796 [place] [address] Lab Director: Emily George MD Cholesterol in LDL [Mass/Vol] 59 mg/dL Normal 0-100 [facility] Comment on above: Result Comment: LDL Guidelines: <100 Desirable 100-129 Near to/above Desirable 130-159 Borderline >159 Undesirable Direct (measured) LDL and calculated LDL are not interchangeable tests. Performed By: #### L IPR, GLYHGB ####[facility] [address] [place] [address] Lab Director: Placido Pierce MD#### CP ####[facility] Dkh9157 [place] [address] Lab Director: Emily George MD#### INSU ####[address] [phone] Director: Placido Pierce, [facility] Gup2492 [place] [address] Lab Director: Emily George MD Cholesterol in VLDL [Mass/Vol] 68 mg/dL High 1-30 [facility] Comment on above: Performed By: #### L IPR, GLYHGB ####[facility] [address] [place] [address] Lab Director: Placido Pierce MD#### CP ####[facility] Rgr9852 [place], [place] [phone] Director: Emily George MD#### INSU ####[facility]2222 [place], [place] [phone] Director: Placido Pierce, [facility] Ffk6855 [place], [place] [phone] Director: Emily George MD Cholesterol.total/Chol esterol in HDL [Mass ratio] 5.1 {ratio} High <5.0 [facility] Comment on above: Performed By: #### L IPR, GLYHGB ####[facility] [address] [place], [place] [phone] Director: Placido Pierce MD#### CP ####[facility] Oni8258 [place] [address] Lab Director: Emily George MD#### INSU ####[facility]2222 [place], [place] [phone] Director: Placido Pierce, [facility] Cwb7020 [place], [place] [phone] Director: Emily George MD Triglyceride [Mass/Vol] 341 mg/dL High <150 [facility] Comment on above: Result Comment: Triglyceride Guidelines: <150 Desirable 150-199 Borderline 200-499 High >499 Very high Based on AHA Guidelines for fasting triglyceride, July 2012. Performed By: #### L IPR, GLYHGB ####[facility] [address] [place], [place] [phone] Director: Placido Pierce MD#### CP ####[facility] [address] [place], [place] [phone] lab Director: Emily George MD#### INSU ####[facility] [place], [place] [phone] lab Director: Placido Pierce [facility] [address] [place] [address] [facility] Director: Emily George MD No Panel Informationon 04-14 [facility] MR Foot - right WO and W [...] again superimposed infection be difficult to include. [facility] RIS CONSOLIDATED EXAM: MRI FOOT RIGHT W [...] atrophic change likely related to chronic neuropathy. [facility] CONSOLIDATED Hesham Mcarthur MD - 04/12/2025 EXAM: [...] again superimposed infection be difficult to include. [facility] MR Foot - right WO and W con trast IVOrdered By: Hesham Mcarthur on 04-12-2025 [facility] 24/7 Card Work Phone: MRI FOOT RIGHT W WO [...] by: Hesham Mcarthur MD 04/12/25 Final result [facility] Radiology, Radiologist, MD - 04/12/2025 EXAM: MRI [...] by: Hesham Mcarthur MD 04/12/25 Final result [facility] MRI FOOT RIGHT W WO CONTRAST EXAM: [...] Hesham Mcarthur MD 04/12/25 Final result Normal [facility] Radiology Study observation (narrative) [facility] MRI FOOT RIGHT W WO CONTRAST Ordered By: Radiologist Radiology on 04-12-2025 [facility] Work Phone: BUN & Creatinineon 5 Creatinine [Mass/Vol] 1.3 mg/dL High 0.5 - 0.9 mg/dL [facility] Est, Glom Filt Rate 52 Low - PINF [facility] Comment on above: These results are [...] Interpretation and review of laboratory results Abnormal [facility] Urea nitrogen [Mass/Vol] 15 mg/dL 6 - 20 mg/dL [facility] BUN + Creatinineon 5 Creatinine [Mass/Vol] 1.3 mg/dL High 0.5-0.9 [facility] Comment on above: Performed By: #### B UNCRT #### [facility] [address] [place] [address] Miniature Set Constructor: Emily George MD GFR/1.73 sq M.predicted among non-blacks MDRD (S/P/Bld) [Vol rate/Area] 52 mL/min/{1.73_m2} Low >60 [facility] Comment on above: Result Comment: [...] secretion. Performed By: #### B UNCRT #### [facility] [address] [place], [place] [phone] Miniature Set Constructor: Emily George MD Urea nitrogen [Mass/Vol] 15 mg/dL Normal 6-20 [facility] Comment on above: Performed By: #### B UNCRT #### [facility] [address] [place] [address] Miniature Set Constructor: Emily George MD MHPT BUN + CREATININEon Creatinine [Mass/Vol] 1.3 mg/dL High 0.5 - 0.9 mg/dL [facility] Interpretation and review of laboratory results Abnormal [facility] MHPT EGFR 52 Low - PINF [facility] Comment on above: These results are not [...] [Mass/Vol] 15 mg/dL 6 - 20 mg/dL [facility] Original [facility]ing [facility] - right WO and W con trast Chay 04-11-2025 Radiology Study observation (narrative) [facility] XR Foot - right 2 [facility] Result: XRAY RIGHT FOOT: AP/OBL- No fx. Lis franc diastasis concern with deformity. DP 2 mild cortical disruption 1-2mm possible. No bone density changes [facility] Cult,Woundon 04-08-2025 Cult,Wound Specimen Description .TOE Direct [...] Trimethoprim/Sulfa <=10 SUSCEPTIBLE Vancomycin 1 SUSCEPTIBLE Susceptible [facility] Comment on above: Performed By: #### W DC ####[facility] [place] [address] Lab Director: Placido Pierce [facility] [address] [place], [place] [phone] Lab Director: Emily George MD XR Foot - right 2 [facility] Rad[facility] Study observation (narrative) [facility] Brain Natri. Peptideon 04-04 Natriuretic peptide B (Bld) [Mass/Vol] 262 pg/mL Normal <300 [facility] Comment on above: Result Comment: An a ge-independent cutoff point of 300 pg/ml has a 98% negative predictive value excluding acute heart failure. Performed By: #### B LOBBY CONCIERGE, SED, CRP #### [facility] [address] [place] [address] Miniature Set Constructor: Emily George MD Brain Natriuretic Peptideon 04-04-2025 Natriuretic peptide B (Bld) [Mass/Vol] 262 pg/mL NINF - 300 pg/mL [facility] Comment on above: An age-independent c utoff point of 300 pg/ml has a 98% negative predictive value excluding acute heart failure. C-Reactive Proteinon 025 CRP High sensitivity method [Mass/Vol] 46.7 mg/L High 0.0 - 5.0 mg/L [facility] Interpretation and review of laboratory results Abnormal [facility] CRP [Mass/Vol] 46.7 mg/L High 0.0-5.0 [facility] Comment on above: Performed By: #### B LOBBY CONCIERGE, SED, CRP #### [facility] [address] [place], [place] [phone] Miniature Set Constructor: Emily George MD CBC with Auto Differentialon 04-04-2025 Basophils (Bld) [#/Vol] 0.02 10*3/uL [facility] Basophils/100 WBC (Bld) 0 % 0 - 2 % [facility] Eosinophils (Bld) [#/Vol] 0.07 10*3/uL [facility] Eosinophils/100 WBC (Bld) 1 % 0 - 5 % [facility] Erythrocyte distribution width (RBC) [Ratio] 18.4 % High 12.1 - 15.2 % [facility] Hematocrit (Bld) [Volume fraction] 30 % Low 36.0 - 46.0 % [facility] Hemoglobin (Bld) [Mass/Vol] 9.6 g/dL Low 12.0 - 16.0 g/dL [facility] Immature granulocytes (Bld) [#/Vol] 0.13 10*3/uL [facility] Immature granulocytes/100 WBC (Bld) 2 % 0 - 5 % [facility] Interpretation and review of laboratory results Abnormal [facility] Lymphocytes/100 WBC (Bld) 23 % 15 - 40 % [facility] Lymphocytes/100 WBC (Bld) 1.39 % [facility] MCH (RBC) [Entitic mass] 27 pg 26.0 - 34.0 pg [facility] MCHC (RBC) [Mass/Vol] 32 g/dL 31.0 - 37.0 g/dL [facility] MCV (RBC) [Entitic vol] 84.3 fL 80.0 - 100.0 fL [facility] Monocytes/100 WBC (Bld) 6 % 4 - 8 % [facility] Monocytes/100 WBC (Bld) 0.37 % [facility] Neutrophils/100 WBC (Bld) 68 % 47 - 75 % [facility] Platelet mean volume (Bld) [Entitic vol] 11.7 fL 6.0 - 12.0 fL [facility] Platelets (Bld) [#/Vol] 186 10*3/uL [facility] RBC (Bld) [#/Vol] 3.56 10*6/uL Low 4.00 - 5.2 0 m/uL [facility] Segmented neutrophils/100 WBC (Bld) 4.09 % [facility] WBC other (Bld) [#/Vol] 6.1 [facility] CBC with Diffon 04-04-2025 Abs. Basophil 0.02 k/uL Normal 0.00-0.20 [facility] Comment on above: Performed By: #### C DP #### [facility] Lab [address] [place] [address] Miniature Set Constructor: Emily George MD Abs.Imm.Granulocyte 0.13 k/uL Normal 0.00-0.30 [facility] Comment on above: Performed By: #### C DP #### [facility] Lab [address] [place] [address] Miniature Set Constructor: Emily George MD Abs.Neutrophil (Seg) 4.09 k/uL Normal 2.5-7.0 [facility] Comment on above: Performed By: #### C DP #### [facility] Lab [address] [place] [phone] Miniature Set Constructor: Emily George MD Basophils/100 WBC (Bld) 0 % Normal 0-2 [facility] Comment on above: Performed By: #### C DP #### [facility] Lab [address] [place] [phone] Miniature Set Constructor: Emily George MD Eosinophils (Bld) [#/Vol] 0.07 10*3/uL Normal 0.00-0.40 [facility] Comment on above: Performed By: #### C DP #### [facility] Lab [address] [place], [place] [phone] Miniature Set Constructor: Emily George MD Eosinophils/100 WBC (Bld) 1 % Normal 0-5 [facility] Comment on above: Performed By: #### C DP #### [facility] Lab [address] [place] [phone] Miniature Set Constructor: Emily George MD Erythrocyte distribution width (RBC) [Ratio] 18.4 % High 12.1-15.2 [facility] Comment on above: Performed By: #### C DP #### [facility] Lab [address] [place] [address] Miniature Set Constructor: Emily George MD Hematocrit (Bld) [Volume fraction] 30.0 % Low 36.0-46.0 [facility] Comment on above: Performed By: #### C DP #### [facility] Lab [address] [place] [address] Miniature Set Constructor: Emily George MD Hemoglobin (Bld) [Mass/Vol] 9.6 g/dL Low 12.0-16.0 [facility] Comment on above: Performed By: #### C DP #### [facility] Lab [address] [place] [address] Miniature Set Constructor: Emily George MD Immature granulocytes/100 WBC (Bld) 2 % Normal 0-5 [facility] Comment on above: Performed By: #### C DP #### [facility] Lab [address] [place] [address] Miniature Set Constructor: Emily George MD Lymphocytes (Bld) [#/Vol] 1.39 10*3/uL Normal 1.00-4.80 [facility] Comment on above: Performed By: #### C DP #### [facility] Lab [address] [place] [address] Miniature Set Constructor: Emily George MD Lymphocytes/100 WBC (Bld) 23 % Normal 15-40 [facility] Comment on above: Performed By: #### C DP #### [facility] Lab [address] [place] [address] Miniature Set Constructor: Emily George MD MCH (RBC) [Entitic mass] 27.0 pg Normal 26.0-34.0 [facility] Comment on above: Performed By: #### C DP #### [facility] Lab [address] [place] [address] Miniature Set Constructor: Emily George MD MCHC (RBC) [Mass/Vol] 32.0 g/dL Normal 31.0-37.0 [facility] Comment on above: Performed By: #### C DP #### [facility] Lab [address] [place] [address] Miniature Set Constructor: Emily George MD MCV (RBC) [Entitic vol] 84.3 fL Normal 80.0-100.0 [facility] Comment on above: Performed By: #### C DP #### [facility] Lab [address] [place] [address] Miniature Set Constructor: Emily George MD Monocytes (Bld) [#/Vol] 0.37 10*3/uL Normal 0.00-1.00 [facility] Comment on above: Performed By: #### C DP #### [facility] Lab [address] [place] [address] Miniature Set Constructor: Emily George MD Monocytes/100 WBC (Bld) 6 % Normal 4-8 [facility] Comment on above: Performed By: #### C DP #### [facility] Lab [address] [place] [address] Miniature Set Constructor: Emily George MD Neutrophil (Seg) 68 % Normal 47-75 [facility] Comment on above: Performed By: #### C DP #### [facility] Lab [address] [place] [address] Miniature Set Constructor: Emily George MD Platelet mean volume (Bld) [Entitic vol] 11.7 fL Normal 6.0-12.0 [facility] Comment on above: Performed By: #### C DP #### [facility] Lab [address] [place] [address] Miniature Set Constructor: Emily George MD Platelets (Bld) [#/Vol] 186 10*3/uL Normal 140-450 [facility] Comment on above: Performed By: #### C DP #### [facility] Lab [address] [place] [address] Miniature Set Constructor: Emily George MD RBC (Bld) [#/Vol] 3.56 10*6/uL Low 4.00-5.20 [facility] Comment on above: Performed By: #### C DP #### [facility] Lab [address] [place] [address] Miniature Set Constructor: Emily George MD WBC (Bld) [#/Vol] 6.1 10*3/uL Normal 3.5-11.0 [facility] Comment on above: Performed By: #### C DP #### [facility] Lab [address] [place] [address] Miniature Set Constructor: Emily George MD No Panel Informationon 04-04 No acute osseous injury. Soft tissue swelling of the left great toe on the right second toe without radiographic evidence of osteomyelitis. Postsurgical changes partially imaged on the left. [facility] CONSOLIDATED EXAM: XR TOE LEFT (MIN [...] blastic bony lesions. There is normal mineralization. [facility] Daksha Garcai MD - 04/04/2025 EXAM: XR TOE LEFT [...] Postsurgical changes partially imaged on the left. [facility] No Panel InformationOrdered By: Daksha Hannah on 04-04-2025 [facility] Work Phone: Sedimentation Rateon 025 ESR Photometric method (Bld) [Velocity] 32 High [facility] Interpretation and review of laboratory results Abnormal [facility] Sedimentation Rate 32 mm/Hr High 0-20 [facility] Comment on above: Performed By: #### B LOBBY CONCIERGE, SED, CRP #### [facility] Lab [address] [place] [address] Miniature Set Constructor: Emily George MD XR TOE LEFT (MIN [...] Daksha Hannah MD 04/04/25 Final result Normal [facility] XR TOE RIGHT (MIN 2 VIEWS)on 04-04-2025 [...] Daksha Hannah MD 04/04/25 Final result Normal [facility] XR Toes - left 2 [facility] Study observation (narrative) [facility] XR Toes - right 2 [facility] Radiology Study observation (narrative) [facility] BRIAN DIGITAL SCREEN BILA TERALon 02-28-2025 [facility] BRIAN DIGITAL SCREEN BILATERAL HISTORY: Screening. TECHNIQUE: [...] be mailed to the patient. Performing Facility: [place] [address] Interpreted by: Micky Lauren Jr., MD Signed by: Micky Lauren Jr., MD 02/28/25 Final result Normal [facility] Comp Metabolic Profon 2024 Albumin [Mass/Vol] 3.8 g/dL Normal 3.5-5.2 [facility] Comment on above: Performed By: #### G LYHGB, LIPR, LDLDIR ####[facility] [place] [address] Lab Director: Placido Pierce MD#### CP ####[facility] [address] [place] [address] Lab Director: Emily George MD Alkaline Phos 115 U/L High 35-104 [facility] Comment on above: Performed By: #### G LYHGB, LIPR, LDLDIR ####[place] [address] [place] [address] Lab Director: Placido Pierce MD#### CP ####[facility] M[address] [place] [address] Lab Director: Emily George MD ALT [Catalytic activity/Vol] 11 U/L Normal 5- [facility] Comment on above: Performed By: #### G LYHGB, LIPR, LDLDIR ####[place] [address] [place] [address] Lab Director: Placido Pierce MD#### CP ####[facility] Rbg[address] [place] [address] Lab Director: Emily George MD Anion gap [Moles/Vol] 12 mmol/L Normal 9-17 [facility] Comment on above: Performed By: #### G LYHGB, LIPR, LDLDIR ####[address] [address] [place] [address] Lab Director: Placido Pierce MD#### CP ####[facility] Sit[address] [place] [address] Lab Director: Emily George MD AST [Catalytic activity/Vol] 14 U/L Normal <32 [facility] Comment on above: Performed By: #### G LYHGB, LIPR, LDLDIR ####[facility] [place] [address] Lab Director: Placido Pierce MD#### CP ####[facility] Ct[address] [place] [address] Lab Director: Emily George MD Bilirubin [Mass/Vol] 0.4 mg/dL Normal 0.3-1.2 [facility] Comment on above: Performed By: #### G LYHGB, LIPR, LDLDIR ####[address] [address] Lab Director: Placido Pierce MD#### CP ####[facility] [address] [place] [address] Lab Director: Emily George MD BUN/CRE Ratio 19 Normal 9-20 [facility] Comment on above: Performed By: #### G LYHGB, LIPR, LDLDIR ####[address] [address] Lab Director: Placido Pierce MD#### CP ####[facility] Qfh[address]45 [place] [address] Lab Director: Emily George MD Calcium [Mass/Vol] 9.3 mg/dL Normal 8.6-10.4 [facility] Comment on above: Performed By: #### G LYHGB, LIPR, LDLDIR ####[address] [address] Lab Director: Placido Pierce MD#### CP ####[facility] Mph[address] [place], [place] [phone] Lab Director: Emily George MD Chloride [Moles/Vol] 102 mmol/L Normal 98-107 [facility] Comment on above: Performed By: #### G LYHGB, LIPR, LDLDIR ####[place] [address] [place] [address] Lab Director: Placido Pierce MD#### CP ####[facility] J[address] [place], [place] [phone] Lab Director: Emily George MD CO2 [Moles/Vol] 25 mmol/L Normal 20-31 [facility] Comment on above: Performed By: #### G LYHGB, LIPR, LDLDIR ####[address] [address] Lab Director: Placido Pierce MD#### CP ####[facility] H[address] [place], [place] [phone] Lab Director: Emily George MD Creatinine [Mass/Vol] 1.1 mg/dL High 0.5-0.9 [facility] Comment on above: Performed By: #### G LYHGB, LIPR, LDLDIR ####[address] [address] Lab Director: Placido Pierce MD#### CP ####[facility] Uxu[address] [place], [place] 6858[address] Lab Director: Emily George MD GFR/1.73 sq M.predicted among non-blacks MDRD (S/P/Bld) [Vol rate/Area] 63 mL/min/{1.73_m2} Normal >60 [facility] Comment on above: Result Comment: [...] Performed By: #### G LYHGB, LIPR, LDLDIR ####[address] [address] [place] [address] Lab Director: Placido Pierce MD#### CP ####[facility] Xbd3551 [place] [address] Lab Director: Emily George MD Glucose [Mass/Vol] 125 mg/dL High 70-99 [facility] Comment on above: Performed By: #### G LYHGB, LIPR, LDLDIR ####[address] [address] Lab Director: Placido Pierce MD#### CP ####[facility] [address] [place] [address] Lab Director: Emily George MD Potassium [Moles/Vol] 4.2 mmol/L Normal 3.7-5.3 [facility] Comment on above: Performed By: #### G LYHGB, LIPR, LDLDIR ####[address] [address] Lab Director: Placido Pierce MD#### CP ####[facility] [address] [place] [address] Lab Director: Emily George MD Protein [Mass/Vol] 7.2 g/dL Normal 6.4-8.3 [facility] Comment on above: Performed By: #### G LYHGB, LIPR, LDLDIR ####[address] [address] Lab Director: Placido Pierce MD#### CP ####[facility] Mvd[address] [place], [place] [phone] lab Director: Emily George MD Sodium [Moles/Vol] 139 mmol/L Normal 135-144 [facility] Comment on above: Performed By: #### G LYHGB, LIPR, LDLDIR ####[facility] [address] [place], [place] [phone] lab Director: Placido Pierce MD#### CP ####[facility] Mfk[address] [place], [place] [phone] lab Director: Emily George MD Urea nitrogen [Mass/Vol] 21 mg/dL High 6-20 [facility] Comment on above: Performed By: #### G LYHGB, LIPR, LDLDIR ####[facility] [address] [place], [place] 2429[address] lab Director: Placido Pierce MD#### CP ####[facility] Xao[address] [place], [place] [phone] lab Director: Emily George MD Comprehensive Metabolic [facility] 11-14-2024 Albumin [Mass/Vol] 3.8 g/dL 3.5 - 5.2 g/dL [facility] ALP [Catalytic activity/Vol] 115 U/L High 35 - 104 U/L [facility] ALT [Catalytic activity/Vol] 11 U/L 5 - 33 U/L [facility] Anion gap [Moles/Vol] 12 mmol/L 9 - 17 mmol/L [facility] AST [Catalytic activity/Vol] 14 U/L NINF - 32 U/L [facility] Bilirubin [Mass/Vol] 0.4 mg/dL 0.3 - 1 .2 mg/dL [facility] Calcium [Mass/Vol] 9.3 mg/dL 8.6 - 10. 4 mg/dL [facility] Chloride [Moles/Vol] 102 mmol/L 98 - 10 7 mmol/L [facility] CO2 [Moles/Vol] 25 mmol/L 20 - 31 mmol/L [facility] Creatinine [Mass/Vol] 1.1 mg/dL High 0.5 - 0.9 mg/dL [facility] Est, Glodieudonne Filt Rate 63 - PINF [facility] Comment on above: These results are [...] 125 mg/dL High 70 - 99 mg/dL [facility] Interpretation and review of laboratory results Abnormal [facility] Potassium [Moles/Vol] 4.2 mmol/L 3.7 - 5.3 mmol/L [facility] Protein [Mass/Vol] 7.2 g/dL 6.4 - 8.3 g/dL [facility] Sodium [Moles/Vol] 139 mmol/L 135 - 144 mmol/L [facility] Urea nitrogen [Mass/Vol] 21 mg/dL High 6 - 20 mg/dL [facility] Urea nitrogen/Creatinine [Mass ratio] 19 mg/mg 9 - 20 [facility] Hemoglobin A1Con 11-14-2024 Average glucose Estimated from glycated hemoglobin (Bld) [Mass/Vol] 103 mg/dL [facility] Comment on above: The ADA and AACC rec ommend providing the estimated average glucose result to permit better patient understanding of their HBA1c result. HbA1c (Bld) [Mass fraction] 5.2 % 4.0 - 6.0 % [facility] Glucose [Mass/Vol] 103 mg/dL Normal [facility] Comment on above: Result Comment: The ADA and AACC recommend providing the estimated average glucose result to permit better patient understanding of their HBA1c result. Performed By: #### G LYHGB, LIPR, LDLDIR ####[address] [address] [place] [address] [facility] Director: Placido Pierce MD#### CP ####[facility] [address] [place], [place] [phone] lab Director: Emily George MD HbA1c (Bld) [Mass fraction] 5.2 % Normal 4.0-6.0 [facility] Comment on above: Performed By: #### G LYHGB, LIPR, LDLDIR ####[facility] [address] [place], [place] [address]38[address] Lab Director: Placido Pierce MD#### CP ####[facility] [address] [place], [place] [address] lab Director: Emily George MD LDL Chol, Directon LDL Chol, Direct 94 mg/dL Normal <100 [facility] Comment on above: Performed By: #### G LYHGB, LIPR, LDLDIR ####[facility] [address] [place], [place] [phone] lab Director: Placido Pierce MD#### CP ####[facility] [address] [place], [place] [phone] lab Director: Emily George MD LDL Cholesterol, Directon Cholesterol in LDL [Mass/Vol] 94 mg/dL NINF - 100 mg/dL [facility] Lipid Panelon 11-14-2024 Cholesterol [Mass/Vol] 179 mg/dL 0 - 199 mg/dL [facility] Comment on above: Cholesterol Guidelines: <200 Desirable 200-240 Borderline >240 Undesirable Cholesterol in HDL [Mass/Vol] 31 mg/dL Low 40 - PINF mg/dL [facility] Comment on above: HDL Guidelines: <40 Undesirable 40-59 Borderline >59 Desirable Cholesterol in LDL [Mass/Vol] Can not be calculated 0 - 100 mg/dL [facility] Comment on above: LDL Guidelines: <100 Desirable 100-129 Near to/above Desirable 130-159 Borderline >159 Undesirable Direct (measured) LDL and calculated LDL are not interchangeable tests. Cholesterol in VLDL [Mass/Vol] Can not be calculated 1 - 30 mg/dL [facility] Cholesterol.total/Chol esterol in HDL [Mass ratio] 5.8 {ratio} [facility] Interpretation and review of laboratory results Abnormal [facility] Triglyceride [Mass/Vol] 407 mg/dL High NINF - 150 mg/dL [facility] Comment on above: Triglyceride Guidelines: <150 Desirable 150-199 Borderline 200-499 High >499 Very high Based on AHA Guidelines for fasting triglyceride, July 2012. [facility] Lipid Profileon 11-14-2024 Cholesterol [Mass/Vol] 179 mg/dL Normal 0-199 [facility] Comment on above: Result Comment: Cholesterol Guidelines: <200 Desirable 200-240 Borderline >240 Undesirable Performed By: #### G LYHGB, LIPR, LDLDIR ####[facility] [address] [place] [address] Lab Director: Placido Pierce MD#### CP ####[facility] [address] [place], [place] [address])[phone] Director: Emily George MD Cholesterol in HDL [Mass/Vol] 31 mg/dL Low >40 [facility] Comment on above: Result Comment: HDL Guidelines: <40 Undesirable 40-59 Borderline >59 Desirable Performed By: #### G LYHGB, LIPR, LDLDIR ####[facility] [address] [place], [place] [address])[phone] Director: Placido Pierce MD#### CP ####[facility] [address] [place], [place] [phone] Lab Director: Emily George MD Cholesterol,LDL Can not be calculated Normal 0-100 [facility] Comment on above: Result Comment: LDL Guidelines: <100 Desirable 100-129 Near to/above Desirable 130-159 Borderline >159 Undesirable Direct (measured) LDL and calculated LDL are not interchangeable tests. Performed By: #### G LYHGB, LIPR, LDLDIR ####[facility] [address] [place], [place] [phone] Director: Placido Pierce MD#### CP ####[facility] [address] [place], [place] [phone] Director: Emily George MD Cholesterol,VLDL Can not be calculated Normal 1-30 [facility] Comment on above: Performed By: #### G LYHGB, LIPR, LDLDIR ####[facility] [address] [place], [place] [phone] Director: Placido Pierce MD#### CP ####[facility] [address] [place] [address] Lab Director: Emily George MD Cholesterol.total/Chol esterol in HDL [Mass ratio] 5.8 {ratio} Normal [facility] Comment on above: Performed By: #### G LYHGB, LIPR, LDLDIR ####[facility] [place] [address] Lab Director: Placido Pierce MD#### CP ####[facility] [address] [place] [address] Lab Director: Emily George MD Triglyceride [Mass/Vol] 407 mg/dL High <150 [facility] Comment on above: Result Comment: Triglyceride Guidelines: <150 Desirable 150-199 Borderline 200-499 High >499 Very high Based on AHA Guidelines for fasting triglyceride, July 2012. Performed By: #### G LYHGB, LIPR, LDLDIR ####[facility] [address] [place] [address] Lab Director: Placido Pierce MD#### CP ####[facility] [address] [place] [address] Lab Director: Emily George MD US THYROIDon 09-07-2024 [...] Lauren Jr., MD 09/07/24 Final result Normal [facility] US Thyroid glandon TI-RADS 5, highly suspicious subcentimeter nodule in the right lobe remains stable. (Follow if greater than or equal to 0.5 cm annually until 5 years according to ACR TI-RADS recommendations). Continued follow-up annually is recommended through 2026. [facility] CONSOLIDATED EXAM: US THYROID HISTORY: [...] 1.7 x 1.3 cm. Isthmus: 0.2 cm [facility] CONSOLIDATED Micky Lauren Jr., MD [...] Continued follow-up annually is recommended through 2026. [facility] US Thyroid glandOrdered By: Micky Lauren on 09-07-2024 [facility] Work Phone: US Thyroid glandon Radiology Study observation (narrative) [facility] Magnesiumon 05-10-2024 Magnesium [Mass/Vol] 2.2 mg/dL 1.6 - 2 .6 mg/dL [facility] [facility] No Panel Informationon 05-10 [facility] Protein / creatinine ratio, urineon 05-10-2024 Creatinine (U) [Mass/Vol] 132.0 mg/dL 28.0 - 217.0 mg/dL [facility] [employer] Protein (U) [Mass/Vol] 9 mg/dL [facility] Comment on above: No normal range esta blished. Urine Total Protein Creatinine Ratio 0.07 [facility] Renal Function Panelon 05-10 Albumin [Mass/Vol] 4.2 g/dL 3.5 - 5.2 g/dL [facility] Anion gap [Moles/Vol] 15 mmol/L 9 - 17 mmol/L [facility] Calcium [Mass/Vol] 9.2 mg/dL 8.6 - 10. 4 mg/dL [facility] Chloride [Moles/Vol] 101 mmol/L 98 - 10 7 mmol/L [facility] CO2 [Moles/Vol] 25 mmol/L 20 - 31 mmol/L [facility] Creatinine [Mass/Vol] 1.3 mg/dL High 0.5 - 0.9 mg/dL [facility] Est, Glom Filt Rate 52 Low - PINF [facility] Comment on above: These results are [...] 141 mg/dL High 70 - 99 mg/dL [facility] Interpretation and review of laboratory results Abnormal [facility] Phosphate [Mass/Vol] 3.8 mg/dL 2.6 - 4 .5 mg/dL [facility] Potassium [Moles/Vol] 4.0 mmol/L 3.7 - 5.3 mmol/L [facility] Sodium [Moles/Vol] 141 mmol/L 135 - 144 mmol/L [facility] Urea nitrogen [Mass/Vol] 19 mg/dL 6 - 20 mg/dL [facility] Urea nitrogen/Creatinine [Mass ratio] 15 mg/mg 9 - 20 [facility] Urinalysison 05-10-2024 Bilirubin Ql (U) Negative NEGATIVE [facility] Clarity (U) Clear Clear [facility] Color (U) Yellow Yellow [facility] Comment [facility] Glucose Test strip (U) [Mass/Vol] Negative NEGATIVE mg/dL [facility] Hemoglobin Auto test strip Ql (U) Negative NEGATIVE [facility] Interpretation and review of laboratory results Abnormal [facility] Ketones (U) [Mass/Vol] Negative NEGAT BEATRIZ mg/dL [facility] Leukocyte esterase Test strip Ql (U) Negative NEGATIVE [facility] Nitrite Ql (U) Negative NEGATIVE [facility] pH (U) 5.0 [pH] 5.0 - 8.0 [facility] Protein (U) [Mass/Vol] TRACE Abnormal NEGAT BEATRIZ mg/dL [facility] Specific gravity (U) [Rel density] 1.020 1.005 - 1.030 [facility] Urobilinogen Qn (U) Normal 0.0 - 1. 0 EU/dL [facility] SID [facility] Ananda 02-15-2024 L Specimen: [id number] Received: 02/16/24 Status: ARLEN So Num: [id number] Spec Type: Surgical Subm Dr: Frances Harris DPM, MS Tissues: A Soft Tissue/Surgical Margin-Other than Tumor,Mass,Lip or Becka (LT MID FOOT CH Procedures: HE/2, Gross/Micro L4 Age/ Patient Sex Location Account Attending Physician Celina Gaspar 43/F LABE[facility] [id number] Frances Harris DPM, MS SPEC NUM: [id number] RECD: 02/16/24 STATUS: ARLEN SO NUM: [id number] MAYTE: 02/15/[address]: Frances Harris DPM, MS ENTERED: 02/16/[address]: Ursula,Lab SPEC TYPE: Surgical DEPT: DEANA [...] sections reveal firm, yellow spongy bone matrix. Ship Keeper sections are submitted following decalcification in A1?A2. Clinical history: varus deformity left ankle, charcot join left ankle and foot. CPT Codes 55066 Specimen: [id number] Received: 02/16/24 Status: ARLEN So Num: [id number] Spec Type: Surgical Subm Dr: Frances Harris,INDER, MS Tissues: A Soft Tissue/Surgical Margin-Other than Tumor,Mass,Lip or Becka (LT MID FOOT CH Procedures: HE/2, Gross/Micro L4 Patient: Celina Gaspar [id number] (Continued) Signed (signature on file) Juan José Yu MD 02/17/24 1549 Normal [facility] Lipid Panelon 06-15-2023 Cholesterol [Mass/Vol] 174 mg/dL NINF - 200 mg/dL [employer] Comment on above: Cholesterol Guidelines: <200 Desirable 200-240 Borderline >240 Undesirable Cholesterol in HDL [Mass/Vol] 30 mg/dL Low 40 - PINF mg/dL [facility] Comment on above: HDL Guidelines: <40 Undesirable 40-59 Borderline >59 Desirable Cholesterol in LDL [Mass/Vol] 77 mg/dL 0 - 130 mg/dL [facility] [employer] Comment on above: LDL Guidelines: <100 Desirable 100-129 Near to/above Desirable 130-159 Borderline >159 Undesirable Direct (measured) LDL and calculated LDL are not interchangeable tests. Cholesterol.total/Chol esterol in HDL [Mass ratio] 5.8 {ratio} High NINF - 5 [facility] Interpretation and review of laboratory results Abnormal [facility] Triglyceride [Mass/Vol] 334 mg/dL High NINF - 150 mg/dL [facility] Comment on above: Triglyceride Guidelines: <150 Desirable 150-199 Borderline 200-499 High >499 Very high Based on AHA Guidelines for fasting triglyceride, July 2012. [facility] BUN & Creatinineon 3 Creatinine [Mass/Vol] 1.08 mg/dL High 0.50 - 0.90 mg/dL [facility] GFR/1.73 sq M.predicted MDRD (S/P/Bld) [Vol rate/Area] - PINF [facility] Comment on above: These results are [...] 21 mg/dL High 6 - 20 mg/dL [facility] CBC with Auto Differentialon 02-05-2023 Absolute Eos # 0.10 [place] [facility] Absolute Lymph # 1.70 [facility] URS [facility] Absolute Dickenson # 0.50 [facility] RS [facility] Basophils (Bld) [#/Vol] 0.00 10*3/uL [facility] Basophils/100 WBC (Bld) 1 % 0 - 2 % [facility] Differential Type YES [facility] Eosinophils/100 WBC (Bld) 1 % 0 - 5 % [facility] Hematocrit (Bld) [Volume fraction] 36.2 % 36 - 46 % [facility] Hemoglobin (Bld) [Mass/Vol] 12.2 g/dL 12.0 - 16.0 g/dL [facility] Interpretation and review of laboratory results Abnormal [facility] Lymphocytes/100 WBC (Bld) 23 % 15 - 40 % [facility] MCH (RBC) [Entitic mass] 28.7 pg 26 - 34 pg [facility] MCHC (RBC) [Mass/Vol] 33.7 g/dL 31 - 37 g/dL B ON [facility] MCV (RBC) [Entitic vol] 85.3 fL 80 - 100 fL [facility] Monocytes/100 WBC (Bld) 7 % 4 - 8 % [facility] Platelet distribution width (Bld) [Ratio] 18.1 % High 12.1 - 15.2 % [facility] Platelets (Bld) [#/Vol] 150 10*3/uL [facility] RBC (Bld) [#/Vol] 4.25 10*6/uL 4.0 - 5.2 m/uL [facility] Segmented neutrophils/100 WBC (Bld) 68 % 47 - 75 % [facility] Segs Absolute 5.30 [facility] WBC (Bld) [#/Vol] 7.6 10*3/uL [facility] Chlorideon 02-05-2023 Chloride [Moles/Vol] 99 mmol/L 98 - 10 7 mmol/L [facility] Glucose, Randomon 02-05-2023 Glucose [Mass/Vol] 107 mg/dL High 70 - 99 mg/dL [facility] No Panel Informationon 02-05 Interpretation and review of laboratory results Abnormal [facility] Potassiumon 02-05-2023 Potassium [Moles/Vol] 4.6 mmol/L 3.7 - 5.3 mmol/L [facility] Sodiumon 02-05-2023 Sodium [Moles/Vol] 134 mmol/L Low 135 - 144 mmol/L [facility] Wet Prep, Genitalon 02-06-20 Interpretation and review of laboratory results Abnormal [facility] Microorganism or agent identified Nom (Unsp spec) FEW WBC Abnormal [facility] Microorganism or agent identified Nom (Unsp spec) MODERATE EPITHELIAL CELLS Abnormal [facility] Microorganism or agent identified Nom (Unsp spec) MODERATE BACTERIA Abnormal [facility] Microorganism or agent identified Nom (Unsp spec) NO TRICHOMONAS SEEN [facility] Microorganism or agent identified Nom (Unsp spec) NO FUNGAL ELEMENTS SEEN [facility] Microorganism or agent identified Nom (Unsp spec) NO CLUECELL SEEN [facility] Specimen Description .[facility] FOOT LT WO CONon 02-05-20 23 [...] EMILY ELY Date: 2023-02-04 20:14 Normal [facility] XR ANKLE LEFT 3+ VIEWS (ABDOULAYE GALVAN)on [...] ThuJan 06, 2023 6:11:26 PM EDT Normal [facility] Comment on above: Order Comment: Injur [...] fragmentation of the navicular and cuneiform bones. [facility] EXAM: MRI FOOT LEFT [...] osteomyelitis. No nonenhancing abscess pockets are identified. [facility] Mike Villavicencio MD - [...] fragmentation of the navicular and cuneiform bones. [employer] Phone: Radiology Study observation (narrative) [employer] Phone: MRI FOOT LEFT W WO CONTRASTO rdered By: Mike Villavicencio on 06-25-2022 [employer] Phone: XR FOOT LEFT (2 VIEWS)on There is a linear metallic foreign body projecting between the second and third metatarsals. There is also a metallic foreign body within the lower leg. There is fragmentation of the navicular as well as of all 3 cuneiforms. The appearance is consistent with the patient's history of neuropathy. [facility] EXAM: XR FOOT LEFT (2 VIEWS) HISTORY: M79.5. The patient is a 42-year-old female. Evaluate for foreign body. COMPARISON: None. [facility] Mike Villavicencio MD - [...] consistent with the patient's history of neuropathy. 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 Clinical follow up recommended. Subcentimeter highly suspicious nodule in the right thyroid lobe 7 mm in greatest dimension. This meets criteria for annual follow up for 5 years. It does not meet criteria for FNA. [facility] EXAM: US HEAD NECK [...] fat without shadowing, suggestive of a lipoma. [facility] Micky Lauren Jr., MD [...] It does not meet criteria for FNA. [employer] Work Phone: Radiology Study observation (narrative) [employer] Phone: US HEAD NECK SOFT TISSUE THY ROIDOrdered By: Micky Lauren on 05-27-2022 [facility] [employer] Phone: Rejection Notificationon Reason see below [facility] Comment on above: Result Comment: Unab le to perform testing; no specimen received. To perform testing the specimen will need to be recollected. No spec Performed By: #### R EJEC #### [facility] [address] [address] Rejected Test CXURN [facility] Comment on above: Performed By: #### R EJEC #### [facility] [address] [address] LDL Cholesterol, Directon Cholesterol in LDL [Mass/Vol] 84 mg/dL <100 [facility] [employer] CBC with Auto Differentialon 04-12-2022 Absolute Eos # 0.10 [facility] [employer] Absolute Lymph # 1.40 [facility] [employer] Absolute Dickenson # 0.30 [facility] [employer] Basophils (Bld) [#/Vol] 0.00 10*3/uL [employer] Basophils/100 WBC (Bld) 1 % 0 - 2 % [facility] Differential Type YES [facility] Eosinophils/100 WBC (Bld) 1 % 0 - 5 % [facility] Hematocrit (Bld) [Volume fraction] 35.7 % Low 36 - 46 % [facility] Hemoglobin (Bld) [Mass/Vol] 12.0 g/dL 12.0 - 16.0 g/dL [facility] Interpretation and review of laboratory results Abnormal [facility] Lymphocytes/100 WBC (Bld) 25 % 15 - 40 % [facility] MCH (RBC) [Entitic mass] 28.0 pg 26 - 34 pg [facility] MCHC (RBC) [Mass/Vol] 33.7 g/dL 31 - 37 g/dL [facility] MCV (RBC) [Entitic vol] 83.3 fL 80 - 100 fL [facility] Monocytes/100 WBC (Bld) 5 % 4 - 8 % [facility] Platelet distribution width (Bld) [Ratio] 16.4 % High 12.1 - 15.2 % [facility] Platelets (Bld) [#/Vol] 168 10*3/uL [facility] RBC (Bld) [#/Vol] 4.29 10*6/uL 4.0 - 5.2 m/uL [facility] Segmented neutrophils/100 WBC (Bld) 68 % 47 - 75 % [facility] Segs Absolute 3.90 [facility] WBC (Bld) [#/Vol] 5.7 10*3/uL [facility] Comprehensive Metabolic Pane ananda 04-12-2022 Albumin [Mass/Vol] 4.2 g/dL 3.5 - 5.2 g/dL [facility] ALP (Bld) [Catalytic activity/Vol] 88 U/L 35 - 104 U/L [facility] ALT [Catalytic activity/Vol] 29 U/L 5 - 33 U/L [facility] Anion gap [Moles/Vol] 11 mmol/L 9 - 17 mmol/L [facility] AST [Catalytic activity/Vol] 27 U/L <32 [facility] Bilirubin [Mass/Vol] 0.65 mg/dL 0.30 - 1.20 mg/dL [facility] Calcium [Mass/Vol] 9.1 mg/dL 8.6 - 10. 4 mg/dL [facility] Chloride [Moles/Vol] 101 mmol/L 98 - 10 7 mmol/L [facility] CO2 [Moles/Vol] 28 mmol/L 20 - 31 mmol/L [facility] Creatinine [Mass/Vol] 1.04 mg/dL High 0.50 - 0.90 mg/dL [facility] Free PSA/Total PSA [Mass fraction] 6.8 g/dL 6.4 - 8.3 g/dL [facility] GFR >60 >60 mL/min [facility] GFR Non- 58 mL/min Low >60 [facility] GFR/1.73 sq M.predicted MDRD (S/P/Bld) [Vol rate/Area] [facility] Comment on above: Average GFR for 40-4 9 years old: 99 mL/min/1.73sq m Chronic Kidney Disease: <60 mL/min/1.73sq m Kidney failure: <15 mL/min/1.73sq m eGFR calculated using average adult body mass. Additional eGFR calculator available at: http://www.[employer]/multiple_crcl_2012.htm Glucose [Mass/Vol] 103 mg/dL High 70 - 99 mg/dL [facility] Interpretation and review of laboratory results Abnormal [facility] Potassium [Moles/Vol] 3.9 mmol/L 3.7 - 5.3 mmol/L [facility] Sodium [Moles/Vol] 140 mmol/L 135 - 144 mmol/L [facility] Urea nitrogen (BldV) [Mass/Vol] 13 mg/dL 6 - 20 mg/dL [facility] Urea nitrogen/Creatinine (Bld) [Mass ratio] 13 [facility] HIV Screenon 04-12-2022 HIV Ag/Ab Non-Reactive NONREACTIVE [facility] Comment on above: No laboratory eviden ce of HIV infection. If acute HIV infection is suspected, consider testing for HIV-1 RNA. [facility] Lipid Panelon 04-12-2022 Cholesterol [Mass/Vol] 184 mg/dL <[address] [facility] Comment on above: Cholesterol Guidelines: <200 Desirable 200-240 Borderline >240 Undesirable Cholesterol in HDL [Mass/Vol] 30 mg/dL Low >40 [facility] Comment on above: HDL Guidelines: <40 Undesirable 40-59 Borderline >59 Desirable Cholesterol.total/Chol esterol in HDL [Mass ratio] 6.1 {ratio} High <5 [facility] Interpretation and review of laboratory results Abnormal [facility] LDL Cholesterol 0 - 130 mg/dL [facility] Comment on above: Calculation not jacqueline d for Triglyceride value greater than 400 mg/dL. Direct LDL reflexed LDL Guidelines: <100 Desirable 100-129 Near to/above Desirable 130-159 Borderline >159 Undesirable Direct (measured) LDL and calculated LDL are not interchangeable tests. Triglyceride [Mass/Vol] 460 mg/dL High <150 [facility] Comment on above: Triglyceride Guidelines: <150 Desirable 150-199 Borderline 200-499 High >499 Very high Based on AHA Guidelines for fasting triglyceride, July 2012. [facility] No Panel Informationon 04-12 [facility] TSH with Reflexon 04-12-2022 TSH Qn 0.99 m[IU]/L [facility] Urinalysis with MicroscopicO rdered By: Lita Weeks on 08-01-2021 - [employer] Work Phone: Amorphous, UA NOT REPORTED None [facility] Work Phone: Bacteria, UA RARE Abnormal None [facility] Work Phone: Bilirubin Urine Negative NEGATIVE [facility] Work Phone: Casts UA NOT REPORTED /LPF [facility] 24/7 Card Work Phone: Color, UA Yellow Yellow [facility] Work Phone: Crystals, UA NOT REPORTED None /HPF [facility] Work Phone: Epithelial Cells UA 2 TO 5 /HPF [facility] Work Phone: Glucose, Ur Negative NEGATIVE [employer] Work Phone: Interpretation and review of laboratory results Abnormal [facility] Work Phone: Ketones Ql (U) Negative NEGATIVE [facility] [employer] Work Phone: Leukocyte esterase Test strip Ql (U) Negative NEGATIVE [facility] Work Phone: Mucus, UA NOT REPORTED None [facility] Work Phone: Nitrite, Urine Negative NEGATIVE [facility] [employer] Work Phone: Other Observations UA NOT REPORTED NOT REQ. [facility] Work Phone: pH, UA 6.0 [facility] Work Phone: Protein, UA Negative NEGATIVE [facility] Phone: RBC, UA NOT REPORTED [facility] Work Phone: Renal Epithelial, UA NOT REPORTED 0 /HPF [employer] Work Phone: Specific Dimmitt, UA 1.020 [facility] [employer] Work Phone: Trichomonas, UA NOT REPORTED None [employer] [facility] Work Phone: Turbidity UA Clear Clear [facility] Phone: Urinalysis Comments [facility] Phone: Urine Hgb Negative NEGATIVE [facility] Work Phone: Urobilinogen, Urine Normal Normal [facility] Phone: WBC, UA NOT REPORTED 0 /HPF [facility] Work Phone: Yeast, UA NOT REPORTED None [facility] Work Phone: [facility] Work Phone: Urinalysis with MicroscopicO rdered By: Lita Weeks on 07-11-2021 - [employer] Work Phone: Amorphous, UA NOT REPORTED None [employer] [facility] Work Phone: Bacteria, UA 3+ Abnormal None [facility] Work Phone: Bilirubin Urine Negative NEGATIVE [facility] Work Phone: Casts UA NOT REPORTED /LPF [facility] Work Phone: Color, UA Yellow Yellow [facility] Work Phone: Crystals, UA NOT REPORTED None /HPF [facility] Work Phone: Epithelial Cells UA 2 TO 5 /HPF [facility] Work Phone: Glucose, Ur Negative NEGATIVE [facility] Work Phone: Interpretation and review of laboratory results Abnormal [facility] Work Phone: Ketones Ql (U) Negative NEGATIVE [facility] Work Phone: Leukocyte esterase Test strip Ql (U) 2+ Abnormal NEGATIVE [facility] Work Phone: Mucus, UA NOT REPORTED None [facility] Work Phone: Nitrite, Urine Positive Abnormal NEGATIVE [facility] Work Phone: Other Observations UA NOT REPORTED NOT REQ. M [facility] 24[facility]7 Card Work Phone: pH, UA 6.0 [facility] Work Phone: Protein, UA Negative NEGATIVE [facility] Work Phone: RBC, UA NOT REPORTED [facility] Work Phone: Renal Epithelial, UA NOT REPORTED 0 /HPF [facility] Work Phone: Specific Dimmitt, UA 1.025 [facility] 24[facility]7 Card Work Phone: Trichomonas, UA NOT REPORTED None [facility] Work Phone: Turbidity UA Hazy Abnormal Clear [facility] 24/7 Card Work Phone: Urinalysis Comments [employer] Phone: Urine Hgb Negative NEGATIVE [employer] Phone: Urobilinogen, Urine Normal Normal [employer] Phone: WBC, UA 20 TO 50 0 /HPF [employer] Phone: Yeast, UA NOT REPORTED None [employer] Phone: [employer] Phone: AlbuminOrdered By: Gregory stevens on 05-20-2021 Albumin [Mass/Vol] 4.2 g/dL 3.5 - 5.2 g/dL [employer] Phone: BUN & CreatinineOrdered By: Gregory Forbes on 05-20-2021 Creatinine [Mass/Vol] 1.18 mg/dL High 0.50 - 0.90 mg/dL [employer] Phone: GFR >60 >60 mL/min [employer] Phone: GFR Non- 50 mL/min Low >60 [employer] Phone: GFR/1.73 sq M.predicted MDRD (S/P/Bld) [Vol rate/Area] [employer] Phone: Comment on above: Average GFR for 40-4 9 years old: 99 mL/min/1.73sq m Chronic Kidney Disease: <60 mL/min/1.73sq m Kidney failure: <15 mL/min/1.73sq m eGFR calculated using average adult body mass. Additional eGFR calculator available at: http://www.[employer].com/multiple_crcl_2012.htm GFR/1.73 sq M.predicted MDRD (S/P/Bld) [Vol rate/Area] NOT REPORTED [employer] Phone: Interpretation and review of laboratory results Abnormal [employer] Phone: Urea nitrogen (BldV) [Mass/Vol] 19 mg/dL 6 - 20 mg/dL [employer] Phone: CalciumOrdered By: Gregory stevens on 05-20-2021 Calcium [Mass/Vol] 9.2 mg/dL 8.6 - 10. 4 mg/dL [employer] Phone: Electrolyte PanelOrdered By: Gregory Forbes on 05-20-2021 Anion gap [Moles/Vol] 10 mmol/L 9 - 17 mmol/L [facility] Work Phone: Chloride [Moles/Vol] 103 mmol/L 98 - 10 7 mmol/L [employer] Work Phone: CO2 [Moles/Vol] 25 mmol/L 20 - 31 mmol/L [facility] Phone: Potassium [Moles/Vol] 4.2 mmol/L 3.7 - 5.3 mmol/L [facility] Phone: Sodium [Moles/Vol] 138 mmol/L 135 - 144 mmol/L [facility] Phone: MagnesiumOrdered By: Gregory high on 05-20-2021 Magnesium [Mass/Vol] 2.2 mg/dL 1.6 - 2 .6 mg/dL [facility] Phone: No Panel InformationOrdered By: Gregory Forbes on 05-20-2021 [employer] Work Phone: PhosphorusOrdered By: Gregory Forbes on 05-20-2021 Phosphate [Mass/Vol] 3.7 mg/dL 2.6 - 4 .5 mg/dL [employer] Phone: UrinalysisOrdered By: Gregory Forbes on 05-20-2021 Bilirubin Urine Negative NEGATIVE [facility] Work Phone: Color, UA YELLOW YELLOW [facility] Work Phone: Glucose, Ur Negative NEGATIVE [facility] Work Phone: Interpretation and review of laboratory results Abnormal [employer] Phone: Ketones Ql (U) Negative NEGATIVE [employer] Work Phone: Leukocyte esterase Test strip Ql (U) Negative NEGATIVE [employer] Phone: Nitrite, Urine Negative NEGATIVE [employer] Work Phone: pH, UA 5.0 [employer] Phone: Protein, UA TRACE Abnormal NEGATIVE [employer] Phone: Specific Dimmitt, UA 1.020 [employer] Phone: Turbidity UA CLEAR CLEAR [employer] Phone: Urinalysis Comments [employer] Phone: Urine Hgb Negative NEGATIVE [employer] Phone: Urobilinogen, Urine Normal Normal [employer] Phone: [employer] Phone: COVID-19Ordered By: Pattie smith on 01-22-2021 SARS-CoV-2 (COVID-19) RNA SHARMIN+probe Ql (Unsp spec) [employer] Phone: SARS-CoV-2 (COVID-19) RNA SHARMIN+probe Ql (Unsp spec) Not detected Not Detected [employer] Phone: Comment on above: The specimen is NEGATIVE for SARS-CoV-2, the novel coronavirus associated with COVID-19. A negative result does not rule out COVID-19. Twin SARS-CoV-2 for use on the [employer] is a real-time RT-PCR test intended [...] this assay. Fact sheet for Healthcare Providers: https://www.fda.gov/media/345281/download Fact sheet for Patients: https://www.fda.gov/media/439626/download METHODOLOGY: RT-PCR Source .THROAT [facility] Phone: COVID-19, PCRon 11-15-2020 SARS-CoV-2, Rapid Not Detected Not Detected [facility] [employer] Phone: Comment on above: Rapid NAAT: The [...] management decisions. Fact sheet for Healthcare Providers: https://www.fda.gov/media/773603/download Fact sheet for Patients: https://www.fda.gov/media/536940/download Methodology: Isothermal Nucleic Acid Amplification Source .THROAT [facility] Phone: Otheron 11-15-2020 SARS-CoV-2 [facility] Phone: CBC Auto Differentialon 12-10 07-2019 Basophils (Bld) [#/Vol] 0.10 10*3/uL [employer] [facility] [place] Basophils/100 WBC (Bld) 1 % 0 - 2 % [facility], [place] Differential Type YES [facility] [place] Eosinophils (Bld) [#/Vol] 0.10 10*3/uL [place] Eosinophils/100 WBC (Bld) 1 % 0 - 5 % [place] Erythrocyte distribution width (RBC) [Ratio] 16.3 % High 12.1 - 15.2 % [place] Hematocrit (Bld) [Volume fraction] 36.5 % 36 - 46 % [place] Hemoglobin (Bld) [Mass/Vol] 12.5 g/dL 12 - 16 g/dL [place] Interpretation and review of laboratory results Abnormal [place] Lymphocytes (Bld) [#/Vol] 1.90 10*3/uL [place] Lymphocytes/100 WBC (Bld) 25 % 15 - 40 % [place] MCH (RBC) [Entitic mass] 28.8 pg 26 - 34 pg [place] MCHC (RBC) [Mass/Vol] 34.3 g/dL 31 - 37 g/dL [place] MCV (RBC) [Entitic vol] 84.0 fL 80 - 100 fL [place] Monocytes (Bld) [#/Vol] 0.40 10*3/uL [place] Monocytes/100 WBC (Bld) 5 % 4 - 8 % [place] Platelet mean volume (Bld) [Entitic vol] NOT REPORTED 6 - 12 fL [place], [place] Platelets (Bld) [#/Vol] 167 10*3/uL [place] Platelets (Bld) [#/Vol] NOT REPORTED [place] RBC (Bld) [#/Vol] 4.35 10*6/uL 4 - 5.2 m/uL [place] RBC morphology finding Nom (Bld) NOT REPORTED [place] Segmented neutrophils/100 WBC (Bld) 68 % 47 - 75 % [place] Segs Absolute 5.40 [place] WBC (Bld) [#/Vol] 7.8 10*3/uL [place] WBC (Bld) [#/Vol] NOT REPORTED per 100 WBC [place] WBC Morphology NOT REPORTED [place] Comprehensive Metabolic Pane l w/ Reflex to MGon 09-16-2020 Albumin [Mass/Vol] 4.4 g/dL 3.5 - 5.2 g/dL [place] Albumin/Globulin [Mass ratio] NOT REPORTED [place] ALP [Catalytic activity/Vol] 117 U/L High 35 - 104 U/L [place] ALT [Catalytic activity/Vol] 41 U/L High 5 - 33 U/L [place] Anion gap [Moles/Vol] 10 mmol/L 9 - 17 mmol/L [place] AST [Catalytic activity/Vol] 39 U/L High <32 [place] Bilirubin Ql (U) 0.52 mg/dL 0.3 - 1.2 mg/dL [place] Bun/Cre Ratio 11 [place], [place] Calcium [Mass/Vol] 9.0 mg/dL 8.6 - 10. 4 mg/dL [place] Chloride [Moles/Vol] 101 mmol/L 98 - 10 7 mmol/L [place] CO2 [Moles/Vol] 26 mmol/L 20 - 31 mmol/L [place] Creatinine [Mass/Vol] 1.32 mg/dL High 0.5 - 0.9 mg/dL [place] GFR 54 mL/min Low >60 [place] GFR Non- 44 mL/min Low >60 [place] GFR/1.73 sq M predicted among non-blacks MDRD (S/P/Bld) [Vol rate/Area] [place], [place] Comment on above: Average GFR for 40-4 9 years old: 99 mL/min/1.73sq m Chronic Kidney Disease: <60 mL/min/1.73sq m Kidney failure: <15 mL/min/1.73sq m eGFR calculated using average adult body mass. Additional eGFR calculator available at: http://www.[employer]/multiple_crcl_2011.htm GFR/1.73 sq M predicted among non-blacks MDRD (S/P/Bld) [Vol rate/Area] NOT REPORTED [place], [place] Glucose [Mass/Vol] 173 mg/dL High 70 - 99 mg/dL [place], [place] Interpretation and review of laboratory results Abnormal [place] Potassium [Moles/Vol] 3.9 mmol/L 3.7 - 5.3 mmol/L [place] Protein [Mass/Vol] 7.3 g/dL 6.4 - 8.3 g/dL [place] Sodium [Moles/Vol] 137 mmol/L 135 - 144 mmol/L [place] Urea nitrogen [Mass/Vol] 15 mg/dL 6 - 20 mg/dL [place] Otheron 09-16-2020 Immature granulocytes (Bld) [#/Vol] NOT REPORTED [place] Sedimentation Rateon 020 Sed Rate 15 mm 0 - 20 mm [place] Urinalysis, reflex to micros copicon 09-16-2020 Bilirubin Urine Negative NEGATIVE [place] Color, UA YELLOW YELLOW [place], [place] Glucose, Ur Negative NEGATIVE [place] Interpretation and review of laboratory results Abnormal [place] Ketones Ql (U) Negative NEGATIVE [place], [place] Leukocyte esterase Test strip Ql (U) Negative NEGATIVE [place], [place] Nitrite, Urine Negative NEGATIVE [place], [place] pH, UA 5.0 [place], [place] Protein (U) [Mass/Vol] TRACE Abnormal NEGATIVE [place], [place] Specific [place], UA 1.025 [place], [place] Turbidity UA CLEAR CLEAR [place], [place] Urinalysis Comments [place], [place] Urine Hgb Negative NEGATIVE [place] Urobilinogen, Urine Normal Normal [place] C-Reactive Proteinon 020 CRP [Mass/Vol] 6 mg/L High 0 - 5 mg/L [place], [place] Interpretation and review of laboratory results Abnormal [place] CBC With Auto Differentialon 08-24-2020 Basophils (Bld) [#/Vol] 0.00 10*3/uL [place] Basophils/100 WBC (Bld) 1 % 0 - 2 % [place] Differential Type YES [facility] [place] Eosinophils (Bld) [#/Vol] 0.10 10*3/uL [place] Eosinophils/100 WBC (Bld) 1 % 0 - 5 % [place] Erythrocyte distribution width (RBC) [Ratio] 16.2 % High 12.1 - 15.2 % [place] Hematocrit (Bld) [Volume fraction] 35.4 % Low 36 - 46 % [place] Hemoglobin (Bld) [Mass/Vol] 12.2 g/dL 12 - 16 g/dL [place] Interpretation and review of laboratory results Abnormal [place] Lymphocytes (Bld) [#/Vol] 1.60 10*3/uL [place] Lymphocytes/100 WBC (Bld) 28 % 15 - 40 % [place] MCH (RBC) [Entitic mass] 29.1 pg 26 - 34 pg [place] MCHC (RBC) [Mass/Vol] 34.5 g/dL 31 - 37 g/dL [place], [place] MCV (RBC) [Entitic vol] 84.2 fL 80 - 100 fL [place] Monocytes (Bld) [#/Vol] 0.40 10*3/uL [place] Monocytes/100 WBC (Bld) 6 % 4 - 8 % [place] Platelet mean volume (Bld) [Entitic vol] NOT REPORTED 6 - 12 fL [place], [place] Platelets (Bld) [#/Vol] 160 10*3/uL [place] Platelets (Bld) [#/Vol] NOT REPORTED [place] RBC (Bld) [#/Vol] 4.20 10*6/uL 4 - 5.2 m/uL [place] RBC morphology finding Nom (Bld) NOT REPORTED [place] Segmented neutrophils/100 WBC (Bld) 64 % 47 - 75 % [place] Segs Absolute 3.80 [place], [place] WBC (Bld) [#/Vol] 5.8 10*3/uL [place] WBC (Bld) [#/Vol] NOT REPORTED per 100 WBC [place] WBC Morphology NOT REPORTED [place], [place] Otheron 08-24-2020 Immature granulocytes (Bld) [#/Vol] NOT REPORTED 0 % [place], [place] Sedimentation Rateon 020 Sed Rate 10 mm 0 - 20 mm [place] C-Reactive Proteinon 020 CRP [Mass/Vol] 2 mg/L 0 - 5 mg/L [place], [place] CBC With Auto Differentialon 07-24-2020 Basophils (Bld) [#/Vol] 0.10 10*3/uL [place] Basophils/100 WBC (Bld) 1 % 0 - 2 % [place] Differential Type YES [place] Eosinophils (Bld) [#/Vol] 0.10 10*3/uL [place] Eosinophils/100 WBC (Bld) 1 % 0 - 5 % [place] Erythrocyte distribution width (RBC) [Ratio] 16.8 % High 12.1 - 15.2 % [place] Hematocrit (Bld) [Volume fraction] 40.0 % 36 - 46 % [place] Hemoglobin (Bld) [Mass/Vol] 13.5 g/dL 12 - 16 g/dL [place] Interpretation and review of laboratory results Abnormal [place] Lymphocytes (Bld) [#/Vol] 1.70 10*3/uL [place] Lymphocytes/100 WBC (Bld) 17 % 15 - 40 % [place] MCH (RBC) [Entitic mass] 29.1 pg 26 - 34 pg [place] MCHC (RBC) [Mass/Vol] 33.8 g/dL 31 - 37 g/dL [place] MCV (RBC) [Entitic vol] 86.0 fL 80 - 100 fL [place], [place] Monocytes (Bld) [#/Vol] 0.50 10*3/uL [place] Monocytes/100 WBC (Bld) 5 % 4 - 8 % [place] Platelet mean volume (Bld) [Entitic vol] NOT REPORTED 6 - 12 fL [place], [place] Platelets (Bld) [#/Vol] NOT REPORTED [place] Platelets (Bld) [#/Vol] 208 10*3/uL [place] RBC (Bld) [#/Vol] 4.65 10*6/uL 4 - 5.2 m/uL [place] RBC morphology finding Nom (Bld) NOT REPORTED [place] Segmented neutrophils/100 WBC (Bld) 76 % High 47 - 75 % [place] Segs Absolute 7.70 High [place], [place] WBC (Bld) [#/Vol] NOT REPORTED per 100 WBC [place] WBC (Bld) [#/Vol] 10.0 10*3/uL [place] WBC Morphology NOT REPORTED [place] Otheron 07-24-2020 Immature granulocytes (Bld) [#/Vol] NOT REPORTED 0 % [place] Sedimentation Rateon 020 Sed Rate 6 mm 0 - 20 mm [place] Protein / creatinine ratio, urineon 06-07-2020 Creatinine, Ur 101.2 mg/dL 28 - 217 mg/dL [place] Protein (U) [Mass/Vol] 8 mg/dL [place], [place] Comment on above: No normal range esta blished. Urine Total Protein Creatinine Ratio 0.08 [place] Urinalysison 06-07-2020 Bilirubin Urine Negative NEGATIVE [place] Color, UA YELLOW YELLOW [place], [place] Glucose, Ur 100 mg/dL Abnormal NEGATIVE [place] Interpretation and review of laboratory results Abnormal [place] Ketones Ql (U) Negative NEGATIVE [place], [place] Leukocyte esterase Test strip Ql (U) Negative NEGATIVE [place] Nitrite, Urine Negative NEGATIVE [place], [place] pH, UA 6.0 [place] Protein (U) [Mass/Vol] Negative NEGATIVE [place] Specific [place], UA 1.020 [place], [place] Turbidity UA CLEAR CLEAR [place], [place] Urinalysis Comments [place] Urine Hgb Negative NEGATIVE [place] Urobilinogen, Urine Normal Normal [place] Comprehensive Metabolic Pane ananda 05-25-2020 Albumin [Mass/Vol] 4.4 g/dL 3.5 - 5.2 g/dL [place] Albumin/Globulin [Mass ratio] NOT REPORTED [place] ALP [Catalytic activity/Vol] 87 U/L 35 - 104 U/L [place] ALT [Catalytic activity/Vol] 21 U/L 5 - 33 U/L [place] Anion gap [Moles/Vol] 10 mmol/L 9 - 17 mmol/L [place] AST [Catalytic activity/Vol] 22 U/L <32 [place] Bilirubin Ql (U) 0.32 mg/dL 0.3 - 1.2 mg/dL [place] Bun/Cre Ratio 18 [place], [place] Calcium [Mass/Vol] 10.1 mg/dL 8.6 - 10. 4 mg/dL [place] Chloride [Moles/Vol] 104 mmol/L 98 - 10 7 mmol/L [place] CO2 [Moles/Vol] 26 mmol/L 20 - 31 mmol/L [place] Creatinine [Mass/Vol] 1.37 mg/dL High 0.5 - 0.9 mg/dL [place] GFR 52 mL/min Low >60 [place], [place] GFR Non- 43 mL/min Low >60 [place] GFR/1.73 sq M predicted among non-blacks MDRD (S/P/Bld) [Vol rate/Area] NOT REPORTED [place] GFR/1.73 sq M predicted among non-blacks MDRD (S/P/Bld) [Vol rate/Area] [place] Comment on above: Average GFR for 40-4 9 years old: 99 mL/min/1.73sq m Chronic Kidney Disease: <60 mL/min/1.73sq m Kidney failure: <15 mL/min/1.73sq m eGFR calculated using average adult body mass. Additional eGFR calculator available at: http://www.[employer]/multiple_crcl_2012.htm Glucose [Mass/Vol] 160 mg/dL High 70 - 99 mg/dL [place] Interpretation and review of laboratory results Abnormal [place] Potassium [Moles/Vol] 4.6 mmol/L 3.7 - 5.3 mmol/L [place] Protein [Mass/Vol] 7.4 g/dL 6.4 - 8.3 g/dL [place] Sodium [Moles/Vol] 140 mmol/L 135 - 144 mmol/L [place] Urea nitrogen [Mass/Vol] 24 mg/dL High 6 - 20 mg/dL [place] Hemoglobin A1Con 05-25-2020 Glucose [Mass/Vol] 123 mg/dL [place] Comment on above: The ADA and AACC rec ommend providing the estimated average glucose result to permit better patient understanding of their HBA1c result. HbA1c (Bld) [Mass fraction] 5.9 % 4 - 6 % [place] LDL Cholesterol, Directon Cholesterol in LDL [Mass/Vol] 58 mg/dL <100 [place] Lipid Panelon 05-25-2020 Cholesterol [Mass/Vol] 194 mg/dL <200 [place] Comment on above: Cholesterol Guidelines: <200 Desirable 200-240 Borderline >240 Undesirable Cholesterol in HDL [Mass/Vol] 27 mg/dL Low >40 [place], [place] Comment on above: HDL Guidelines: <40 Undesirable 40-59 Borderline >59 Desirable Cholesterol in LDL [Mass/Vol] 0 - 130 mg/dL [place], [place] Comment on above: Calculation not jacqueline d for Triglyceride value greater than 400 mg/dL. Direct LDL reflexed LDL Guidelines: <100 Desirable 100-129 Near to/above Desirable 130-159 Borderline >159 Undesirable Direct (measured) LDL and calculated LDL are not interchangeable tests. Cholesterol in VLDL [Mass/Vol] NOT REPORTED 1 - 30 mg/dL [place] Cholesterol.total/Chol esterol in HDL [Mass ratio] 7.2 {ratio} High <5 [place] Interpretation and review of laboratory results Abnormal [place] Triglyceride [Mass/Vol] 1112 mg/dL High <150 [place], [place] Comment on above: Triglyceride Guidelines: <150 Desirable 150-199 Borderline 200-499 High >499 Very high Based on AHA Guidelines for fasting triglyceride, July 2012. Patient Fasting?on 0 Patient Fasting? YES [place] Vitamin D 25 Hydroxyon 05-25 Vit D, 25-Hydroxy 30.2 ng/mL 30 - 100 ng/mL [place], [place] Comment on above: Reference Range: Vitamin D status Range Deficiency <20 ng/mL Mild Deficiency 20-30 ng/mL Sufficiency 30-100 ng/mL Toxicity >100 ng/mL C-Reactive Proteinon 020 CRP [Mass/Vol] 6.2 mg/L High 0 - 5 mg/L [place] Interpretation and review of laboratory results Abnormal [place] Hemoglobin R4DFcheumd By: Kevin Allen on 09-24-2019 Glucose [Mass/Vol] 108 mg/dL [facility] [employer] Phone: Comment on above: The ADA and AACC rec ommend providing the estimated average glucose result to permit better patient understanding of their HBA1c result. HbA1c (Bld) [Mass fraction] 5.4 % 4.8 - 5.9 % [facility]: Homocysteine, SerumOrdered B y: Janel Allen on 09-24-2019 Homocysteine 9 umol/L <15.0 [employer] Phone: TSH without ReflexOrdered By : Janel Allen on 09-24-2019 TSH Qn 1.03 m[IU]/L [facility] Phone: Vitamin B12 & FolateOrdered By: Janel Allen on 09-24-2019 Cobalamin (Vitamin B12) [Mass/Vol] 292 pg/mL 232 - 1245 pg/mL [employer] Phone: Folate 13.8 ng/mL >4.8 [employer] Phone: XR CERVICAL SPINE (4-5 VIEWS )on 07-29-2019 Mild degenerative changes cervical spine not unusual for age. Refer to the [facility] Imaging services 02/03/2019 with some of the findings discussed above. [employer] EXAM: XR CERVICAL SPINE (4-5 VIEWS) HISTORY: Reason for exam:->history MRSA discitis of thoracic region. New tingling and numbness of fingers COMPARISON: MRI cervical spine [facility] 02/03/2019, cervical spine series 04/03/2010. The [...] Swimmer's lateral view shows no additional abnormality. 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 New tingling and numbness of fingers COMPARISON: MRI cervical spine [facility] 02/03/2019, cervical spine series 04/03/2010. The [...] unusual for age. Refer to the MRI [facility] services 02/03/2019 with some of the findings discussed above. [place] C-Reactive ProteinOrdered By : Azaleabrock Knight on 07-28-2019 CRP [Mass/Vol] 6.4 mg/L High 0 - 5 mg/L [place], [place] Interpretation and review of laboratory results Abnormal [place] CBC With Auto DifferentialOr dered By: Azalea Knight on 07-28-2019 Absolute Eos # 0.10 [place], [place] Absolute Immature Granulocyte NOT REPORTED [place], [place] Absolute Lymph # 2.10 [place], [place] Absolute [place] # 0.50 [place] Basophils (Bld) [#/Vol] 0.00 10*3/uL [place], [place] Basophils/100 WBC (Bld) 1 % 0 - 2 % [place] Differential Type YES [place] Eosinophils/100 WBC (Bld) 1 % 0 - 5 % [place] Erythrocyte distribution width (RBC) [Ratio] 14.5 % 12.1 - 15.2 % [place] Hematocrit (Bld) [Volume fraction] 38.1 % 36 - 46 % [place] Hemoglobin (Bld) [Mass/Vol] 12.9 g/dL 12 - 16 g/dL [place], [place] Immature Granulocytes NOT REPORTED 0 % [place], [place] Lymphocytes/100 WBC (Bld) 34 % 15 - 40 % [place] MCH (RBC) [Entitic mass] 29.5 pg 26 - 34 pg [place] MCHC (RBC) [Mass/Vol] 33.9 g/dL 31 - 37 g/dL [place] MCV (RBC) [Entitic vol] 87.1 fL 80 - 100 fL [place] Monocytes/100 WBC (Bld) 8 % 4 - 8 % [place] MPV NOT REPORTED 6 - 12 fL [place], [place] NRBC Automated NOT REPORTED per 100 WBC [place] Platelet Estimate NOT REPORTED [place] Platelets (Bld) [#/Vol] 222 10*3/uL [place] RBC (Bld) [#/Vol] 4.38 10*6/uL 4 - 5.2 m/uL [place] RBC morphology finding Nom (Bld) NOT REPORTED [place] Segmented neutrophils/100 WBC (Bld) 56 % 47 - 75 % [place] Segs Absolute 3.50 [place], [place] WBC (Bld) [#/Vol] 6.2 10*3/uL [place] WBC Morphology NOT REPORTED [place] Sedimentation RateOrdered By : Azalea Knight on 07-28-2019 Sed Rate 19 mm 0 - 30 mm [place] C-Reactive Proteinon 019 CRP [Mass/Vol] 7.3 mg/L High 0 - 5 mg/L [place], [place] Interpretation and review of laboratory results Abnormal [place] Albuminon 06-17-2019 Albumin [Mass/Vol] 4.3 g/dL 3.5 - 5.2 g/dL [place] BUN & Creatinineon 9 Creatinine [Mass/Vol] 1.27 mg/dL High 0.5 - 0.9 mg/dL [place] GFR 56 mL/min Low >60 [place], [place] GFR Non- 47 mL/min Low >60 [place] GFR/1.73 sq M predicted among non-blacks MDRD (S/P/Bld) [Vol rate/Area] NOT REPORTED [place] GFR/1.73 sq M predicted among non-blacks MDRD (S/P/Bld) [Vol rate/Area] [place], [place] Comment on above: Average GFR for 40-4 9 years old: 99 mL/min/1.73sq m Chronic Kidney Disease: <60 mL/min/1.73sq m Kidney failure: <15 mL/min/1.73sq m eGFR calculated using average adult body mass. Additional eGFR calculator available at: http://www.[employer]/multiple_crcl_2012.htm Interpretation and review of laboratory results Abnormal [place] Urea nitrogen [Mass/Vol] 18 mg/dL 6 - 20 mg/dL [place] Calciumon 06-17-2019 Calcium [Mass/Vol] 10.4 mg/dL 8.6 - 10. 4 mg/dL [place], [place] Electrolyte Panelon 06-17-20 19 Anion gap [Moles/Vol] 13 mmol/L 9 - 17 mmol/L [place] Chloride [Moles/Vol] 103 mmol/L 98 - 10 7 mmol/L [place] CO2 [Moles/Vol] 24 mmol/L 20 - 31 mmol/L [place] Potassium [Moles/Vol] 3.8 mmol/L 3.7 - 5.3 mmol/L [place] Sodium [Moles/Vol] 140 mmol/L 135 - 144 mmol/L [place] Hemoglobin and Hematocrit, B loodon 06-17-2019 Hematocrit (Bld) [Volume fraction] 35.4 % Low 36 - 46 % [place] Hemoglobin (Bld) [Mass/Vol] 12.1 g/dL 12 - 16 g/dL [place] Interpretation and review of laboratory results Abnormal [place] Magnesiumon 06-17-2019 Magnesium [Mass/Vol] 2.3 mg/dL 1.6 - 2 .6 mg/dL [place] Microscopic Urinalysison Amorphous, UA NOT REPORTED None [place] Bacteria, UA 1+ Abnormal None [place], [place] Casts UA NOT REPORTED /LPF [place], [place] Crystals UA NOT REPORTED None /HPF [place], [place] Epithelial Cells UA 2 TO 5 /HPF [place] Interpretation and review of laboratory results Abnormal [place] Mucus, UA NOT REPORTED None [place], [place] Other Observations UA NOT REPORTED NOT REQ. [place] RBC (U) [#/Vol] NOT REPORTED [place], [place] Renal Epithelial, Urine NOT REPORTED 0 /HPF [place], [place] Trichomonas, UA NOT REPORTED None [place], [place] WBC, UA 0 TO 2 0 /HPF [place], [place] Yeast, UA NOT REPORTED None [place], [place] - [place], [place] Phosphoruson 06-17-2019 Phosphate [Mass/Vol] 3.0 mg/dL 2.6 - 4 .5 mg/dL [place], [place] Protein / creatinine ratio, urineon 06-17-2019 Creatinine, Ur 228.2 mg/dL High 28 - 217 mg/dL [place] Interpretation and review of laboratory results Abnormal [place] Protein (U) [Mass/Vol] 18 mg/dL [place], [place] Comment on above: No normal range esta blished. Urine Total Protein Creatinine Ratio 0.08 [place], [place] Sedimentation Rateon 019 Sed Rate 24 mm 0 - 30 mm [place] Urinalysison 06-17-2019 Bilirubin Urine Negative NEGATIVE [place] Color, UA YELLOW YELLOW [place], [place] Glucose, Ur Negative NEGATIVE [place] Interpretation and review of laboratory results Abnormal [place], [place] Ketones Ql (U) Negative NEGATIVE [place], [place] Leukocyte esterase Test strip Ql (U) Negative NEGATIVE [place], [place] Nitrite, Urine Negative NEGATIVE [place], [place] pH, UA 6.0 [place], [place] Protein (U) [Mass/Vol] TRACE Abnormal NEGATIVE [place], [place] Specific [place], UA 1.025 [place], [place] Turbidity UA HAZY Abnormal CLEAR [place], [place] Urinalysis Comments [place] Urine Hgb Negative NEGATIVE [place] Urobilinogen, Urine Normal Normal [place] MR CERVICAL SPINE WITHOUT CO NTRASTon [...] or cord edema. /cdr Workstation ID: [id number] [facility] EXAMINATION: MR CERVICAL SPINE WITHOUT CONTRAST HISTORY: [...] creating probable mild left-sided neural foraminal stenosis. [facility], Rad In Aric Mohanq - 02/03/2019 [...] be due to myelomalacia or cord edema. /[employer] Workstation ID: [id number] [facility] MR CERVICAL SPINE WITHOUT CONTRAST EXAMINATION: MR [...] to myelomalacia or cord edema. /[facility] Workstation ID: [id number] Dictated by: RNOALD MCCRAY on ThuFebruary 03, 2019 10:34:16 AM EDT Transcribed by: FELICITY DE JESUS on ThuFebruary 03, 2019 10:58:51 AM EDT Finalized by: RONALD MCCRAY on ThuFebruary 03, 2019 10:59:35 AM EDT [facility] Comment on above: Order Comment: Reaso n for exam?:neck pain Injury/Trauma or Illness?:Illness/Other How long have you had these symptoms (acute/chronic)?:Chronic Type of Exam?:Initial Additional signs and symptoms?:neck pain, chronic hx of multiple old injuries Cult,Mycobacteriaon 10-11-19 Cult,Mycobacteria Specimen Description .TISSUE EPIDURAL TISSUE Special Requests NOT REPORTED Direct Exam NO ACID FAST BACILLI SEEN (DIRECT SMEAR) Culture NO GROWTH 48 DAYS Report Status FINAL 10/11/2018 [facility] Comment on above: Performed By: #### T ROPI #### [address] [address] Cult,Mycobacteria Specimen Description .SPINE .TISSUE T4 LAMINA Special Requests NOT REPORTED Direct Exam NO ACID FAST BACILLI SEEN (DIRECT SMEAR) Culture NO GROWTH 48 DAYS Report Status FINAL 10/11/2018 [facility] Comment on above: Performed By: #### L ACWB #### [address] [address] Cult,Funguson 09-27-2018 Cult,Fungus Specimen Description .TISSUE EPIDURAL TISSUE Special Requests NOT REPORTED Culture NO GROWTH 34 DAYS Report Status FINAL 09/27/2018 [facility] Comment on above: Performed By: #### L ACWB #### [address] [address] Cult,Fungus Specimen Description .SPINE .TISSUE T4 LAMINA Special Requests NOT REPORTED Culture NO GROWTH 34 DAYS Report Status FINAL 09/27/2018 [facility] Comment on above: Performed By: #### L ACWB #### [address] [address] BUNon 09-23-2018 Urea nitrogen mass conc 20 mg/dL Normal 6-23 [facility] Comment on above: Performed By: #### 2 [id number] ####OVIDIO [id number] [place] [address] Creatinineon 09-23-2018 Creatinine mass conc 1.3 mg/dL High 0.5-1.1 [facility] Comment on above: Performed By: #### 2 [id number] ####OVIDIO [id number] [place] [address] eGFRon 09-23-2018 eGFR AA 54 mL/min/1.73 m2 Normal [facility] Comment on above: Order Comment: Order added by Discern Expert. Performed By: #### 2 [id number] ####OVIDIO [id number] [place] [address] GFR/1.73 sq M predicted among non-blacks MDRD vol rate/area (S/P/Bld) 45 mL/min/1.73 m2 Normal [facility] Comment on above: Order Comment: Order added by Discern Expert. Performed By: #### 2 [id number] ####OVIDIO [id number] [place] [address] Auto Diffon 09-20-2018 Basophils Auto #/vol (Bld) 0.0 E3/mcL Normal 0.0-0.2 [facility] Comment on above: Order Comment: Order Added by Discern Expert. Performed By: #### 2 [id number] ####OVIDIO [id number] [place] [address] Basophils/100 WBC Auto (Bld) 1.1 % Normal 0.0-2.0 [facility] Comment on above: Order Comment: Order Added by Discern Expert. Performed By: #### 2 [id number] ####OVIDIOBrock [id number] [place] [address] Eos Absolute 0.0 E3/mcL Normal 0.0-0.7 [facility] Comment on above: Order Comment: Order Added by Discern Expert. Performed By: #### 2 [id number] ####OVIDIOBrock [id number] [place] [address] Eosinophils/100 WBC Auto (Bld) 0.3 % Normal 0.0-11.0 [facility] Comment on above: Order Comment: Order Added by Discern Expert. Performed By: #### 2 [id number] ####OVIDIO [id number] [place] [address] Lymphocytes Auto #/vol (Bld) 1.2 E3/mcL Normal 1.2-3.4 [facility] Comment on above: Order Comment: Order Added by Discern Expert. Performed By: #### 2 [id number] ####OVIDIOBrock [id number] [place] [address] Lymphocytes/100 WBC Auto (Bld) 30.6 % Normal 20.0-55.0 [facility] Comment on above: Order Comment: Order Added by Discern Expert. Performed By: #### 2 [id number] ####[facility] [address] [place] [address] Dickenson Absolute 0.4 E3/mcL Normal 0.0-0.7 [facility] Comment on above: Order Comment: Order Added by Discern Expert. Performed By: #### 2 [id number] ####[facility] [address] [place] [address] Monocytes/100 WBC Auto (Bld) 10.2 % High 0.0-10.0 [facility] Comment on above: Order Comment: Order Added by Discern Expert. Performed By: #### 2 [id number] ####[facility] [address] [place] [address] Neutro Absolute 2.3 E3/mcL Normal 1.4-6.5 [facility] Comment on above: Order Comment: Order Added by Discern Expert. Performed By: #### 2 [id number] ####[facility] [address] [place] [address] Neutro Auto 57.8 % Normal 37.0-75.0 [facility] Comment on above: Order Comment: Order Added by Discern Expert. Performed By: #### 2 [id number] ####[facility] [address] [place] [address] CBC w/ Auto Diffon 8 Erythrocyte distribution width Auto Ratio (RBC) 19.9 % High 11.5-14.5 [facility] Comment on above: Performed By: #### 2 [id number] ####[facility] [address] [place] [address] Hematocrit Auto Volume Fraction (Bld) 26.5 % Low 36.0-48.0 [facility] Comment on above: Performed By: #### 2 [id number] ####[address] [place] [address] Hemoglobin mass conc (Bld) 8.7 g/dL Low 12.0-16.0 [facility] Comment on above: Performed By: #### 2 [id number] ####OVIDIO [address] [place] [address] MCH Auto Entitic mass (RBC) 29.6 pg Normal 27.0-31.0 [facility] Comment on above: Performed By: #### 2 [id number] ####OVIDIO [address]af[address] [place] [address] MCHC Auto mass conc (RBC) 32.9 g/dL Low 33.0-37.0 [facility] Comment on above: Performed By: #### 2 302919 ####OVIDIO [address] [place] [address] MCV Auto Entitic volume (RBC) 89.8 fL Normal 78.0-100.0 [facility] Comment on above: Performed By: #### 2 [id number] ####OVIDIO [address] [place] [address] Platelet mean volume Auto Entitic volume (Bld) 10.5 fL Normal 7.4-11.0 [facility] Comment on above: Performed By: #### 2 [id number] ####OVIDIO [address] [place] [address] Platelets Auto #/vol (Bld) 117 E3/mcL Low 130-400 [facility] Comment on above: Performed By: #### 2 [id number] ####OVIDIO [address]is[address] [place] [address] RBC Auto #/vol (Bld) 2.95 E6/mcL Low 3.90-5.40 [facility] Comment on above: Performed By: #### 2 [id number] ####OVIDIO [address] [place] [address] WBC Auto #/vol (Bld) 4.0 E3/mcL Normal 3.6-11.0 [facility] Comment on above: Performed By: #### 2 [id number] ####OVIDIO [address] [place] [address] CRPon 09-20-2018 CRP mass conc 0.83 mg/dL Normal 0.00-1.00 [facility] Comment on above: Performed By: #### 2 609235 ####OVIDIO [address] [place] [address] Morphon 09-20-2018 Anisocytosis Auto Ql (Bld) 1+ Normal [facility] Comment on above: Order Comment: Order Added by Discern Expert. Performed By: #### 1 [id number] ####OVIDIO [address] [place] [address] Hypochromasia 1+ Normal [facility] Comment on above: Order Comment: Order Added by Discern Expert. Performed By: #### 1 [id number] ####OVIDIO [address]Insb[address] [place] [address] RBC morphology finding Nom (Bld) SEE MORPHOLOGY Normal [facility] Comment on above: Order Comment: Order Added by Discern Expert. Performed By: #### 1 [id number] ####OVIDIO [address] [place] [address] Sed Rate Automatedon 018 Sed Rate Automated 15 mm/hr Normal [facility] Comment on above: Result Comment: AGE- SPECIFIC REFERENCE RANGES FOR SEDIMENTATION RATE AUTOMATED REFERENCE RANGE - MM/HR AGE MEN WOMEN 0-2 0-2 - PUBERTY 3-13 3-13 PUBERTY - 50 YRS 0-15 0-20 > 50 YRS 0-20 0-30 Performed By: #### 1 [id number] ####OVIDIO Hematology Manual [address] [place] [address] zzplt morphon 09-20-2018 Platelet morphology finding Nom (Bld) NORMAL Normal [facility] Comment on above: Performed By: #### 9 [id number] ####OVIDIO [address]bmt[address] [place] [address] Platelets Auto #/vol (Bld) NORMAL Normal [facility] Comment on above: Performed By: #### 9 [id number] ####OVIDIO [address] [place] [address] BLOOD UREA NITROGENon 2017 Urea nitrogen mass conc (Bld) 19 mg/dL Normal 7-20 [facility] Comment on above: Performed By: #### A CBC, ESR, BUN, CREAT, CREACT, FX ####Testing performed at [facility] [place] [address] C REACTIVE PROTEINon 018 CRP mass conc 18.5 mg/L High 0-10.0 [facility] Comment on above: Performed By: #### A CBC, ESR, BUN, CREAT, CREACT, FX ####Testing performed at [address] [address] CBCon 09-13-2018 ABSOLUTE BAS 0.1 X10 Normal [facility] Comment on above: Performed By: #### A CBC, ESR, BUN, CREAT, CREACT, FX ####Testing performed at [address] [address] ABSOLUTE EOS 0.20 X10 Normal [facility] Comment on above: Performed By: #### A CBC, ESR, BUN, CREAT, CREACT, FX ####Testing performed at [address] [address] ABSOLUTE NEUTROPHIL COUNT 2.5 x10 Normal 1.0-7.0 [facility] Comment on above: Performed By: #### A CBC, ESR, BUN, CREAT, CREACT, FX ####Testing performed at [address] [address] Basophils/100 WBC Auto (Bld) 1.4 % Normal 0.0-2.0 [facility] Comment on above: Performed By: #### A CBC, ESR, BUN, CREAT, CREACT, FX ####Testing performed at [address] [address] DTYPE AUTO DIFF Normal [facility] Comment on above: Performed By: #### A CBC, ESR, BUN, CREAT, CREACT, FX ####Testing performed at [address] [address] Eosinophils/100 WBC Auto (Bld) 3.5 % Normal 0.0-11.0 [facility] Comment on above: Performed By: #### A CBC, ESR, BUN, CREAT, CREACT, FX ####Testing performed at [address] [address] Lymphocytes Auto #/vol (Bld) 1.10 X10 Normal [facility] Comment on above: Performed By: #### A CBC, ESR, BUN, CREAT, CREACT, FX ####Testing performed at [address] [address] Lymphocytes/100 WBC Auto (Bld) 27.0 % Normal 20.0-55.0 [facility] Comment on above: Performed By: #### A CBC, ESR, BUN, CREAT, CREACT, FX ####Testing performed at [place] [id number] Monocytes Auto #/vol (Bld) 0.4 X10 Normal [facility] Comment on above: Performed By: #### A CBC, ESR, BUN, CREAT, CREACT, FX ####Testing performed at [address] [address] Monocytes/100 WBC Auto (Bld) 9.4 % Normal 0.0-10.0 [facility] Comment on above: Performed By: #### A CBC, ESR, BUN, CREAT, CREACT, FX ####Testing performed at [place] 8762406 Neutrophils/100 WBC Auto (Bld) 58.7 % Normal 37.0-75.0 [facility] Comment on above: Performed By: #### A CBC, ESR, BUN, CREAT, CREACT, FX ####[place] [address] Erythrocyte distribution width Auto Ratio (RBC) 17.6 % High 11.5-14.5 [facility] Comment on above: Performed By: #### A CBC, ESR, BUN, CREAT, CREACT, FX ####[place] [address] Hematocrit Auto Volume Fraction (Bld) 26.2 % Low 36.0-48.0 [facility] Comment on above: Performed By: #### A CBC, ESR, BUN, CREAT, CREACT, FX ####[place] [address] Hemoglobin mass conc (Bld) 8.8 g/dL Low 12.0-16.0 [facility] Comment on above: Performed By: #### A CBC, ESR, BUN, CREAT, CREACT, FX ####[place] [address] MCH Auto Entitic mass (RBC) 29.3 pg Normal 26.0-35.0 [facility] Comment on above: Performed By: #### A CBC, ESR, BUN, CREAT, CREACT, FX ####[place] [address] MCHC Auto mass conc (RBC) 33.7 g/dL Normal 27.0-37.0 [facility] Comment on above: Performed By: #### A CBC, ESR, BUN, CREAT, CREACT, FX ####[place] [address] MCV Auto Entitic volume (RBC) 86.9 fL Normal 80.0-100.0 [facility] Comment on above: Performed By: #### A CBC, ESR, BUN, CREAT, CREACT, FX ####[place] [address] Platelet mean volume Auto Entitic volume (Bld) 10.1 fL Normal 7.4-11.0 [facility] Comment on above: Performed By: #### A CBC, ESR, BUN, CREAT, CREACT, FX ####[place] [address] Platelets Auto #/vol (Bld) 130 /cmm Normal 130.0-400.0 [facility] Comment on above: Performed By: #### A CBC, ESR, BUN, CREAT, CREACT, FX ####[place] [address] RBC Auto #/vol (Bld) 3.01 /cmm Low 4.0-5.4 [facility] Comment on above: Performed By: #### A CBC, ESR, BUN, CREAT, CREACT, FX ####[place] [address] WBC Auto #/vol (Bld) 4.2 /cmm Normal 3.6-11.0 [facility] Comment on above: Performed By: #### A CBC, ESR, BUN, CREAT, CREACT, FX ####[place] [address] CREATININE,SERUMon 8 Creatinine mass conc 1.5 mg/dL High 0.52-1.04 [facility] Comment on above: Performed By: #### A CBC, ESR, BUN, CREAT, CREACT, FX ####Testing performed at [place] [id number] EST. GFR, 50 ml/min/1.73sq.m [facility] Comment on above: Performed By: #### A CBC, ESR, BUN, CREAT, CREACT, FX ####Testing performed at [place] 8762406 EST. GFR,Non 41 ml/min/1.73sq.m [facility] Comment on above: Performed By: #### A CBC, ESR, BUN, CREAT, CREACT, FX ####[place] [address] GFR/1.73 sq M predicted among non-blacks MDRD vol rate/area (S/P/Bld) Average GFR for 30-39 years old = 109. [facility] Comment on above: Result Comment: Edge Bander Operator vasu Kidney disease, GFR = <60.Kidney failure, GFR = <15.The GFR estimate is not adjusted for extreme body surface area or acute process, nor has it been validated for women or ethnic groups other than and . Performed By: #### A CBC, ESR, BUN, CREAT, CREACT, FX ####[place] [address] ESRon 09-13-2018 ESR Velocity (Bld) 49 mm/h High 0-15 [facility] Comment on above: Performed By: #### A CBC, ESR, BUN, CREAT, CREACT, FX ####Testing performed at [place] [id number] FAX REQUESTon 09-13-2018 FAX TO FAX TO DR HARTMAN AT [phone] AND TO [facility] AT [phone] [facility] Comment on above: Performed By: #### P HY, BUN, CREAT, FX ####Testing performed at [address] [address] FAX REQUESTon 09-06-2018 FAX TO [phone] [facility] Comment on above: Performed By: #### F X ####Testing performed at [address] [address] BLOOD UREA NITROGENon 2017 Urea nitrogen mass conc (Bld) 21 mg/dL High 7-20 [facility] Comment on above: Performed By: #### P HY, BUN, CREAT, FX ####Testing performed at [place] [id number] CREATININE,SERUMon 8 Creatinine mass conc 1.4 mg/dL High 0.52-1.04 [facility] Comment on above: Performed By: #### P HY, BUN, CREAT, FX ####[place] [address] EST. GFR, 54 ml/min/1.73sq.m [facility] Comment on above: Performed By: #### P HY, BUN, CREAT, FX ####[place] [address] EST. GFR,Non 44 ml/min/1.73sq.m [facility] Comment on above: Performed By: #### P HY, BUN, CREAT, FX ####[place] [address] GFR/1.73 sq M predicted among non-blacks MDRD vol rate/area (S/P/Bld) Average GFR for 30-39 years old = 109. [facility] Comment on above: Result Comment: Edge Bander Operator vasu Kidney disease, GFR = <60.Kidney failure, GFR = <15.The GFR estimate is not adjusted for extreme body surface area or acute process, nor has it been validated for women or ethnic groups other than and . Performed By: #### P HY, BUN, CREAT, FX ####Testing performed at [place] [id number] FAX REQUESTon 08-31-2018 FAX TO [phone] Normal [facility] Comment on above: Performed By: #### P HY, BUN, CREAT, FX ####Testing performed at [address] [address] GAL NEW PHYSICIANon 08-31-20 18 [facility]IAN DEVAN UP Normal [facility] Comment on above: Performed By: #### P HY, BUN, CREAT, FX ####Testing performed at [address] [address] BUNon 08-27-2018 Urea nitrogen mass conc 24 mg/dL High 03-27 [facility] Comment on above: Performed By: #### 2 [id number] ####OVIDIO [address] [place] [address] Creatinineon 08-27-2018 Creatinine mass conc 1.6 mg/dL High 0.5-1.1 [facility] Comment on above: Performed By: #### 2 [id number] ####OVIDIO [address] [place] [address] eGFRon 08-27-2018 eGFR AA 43 mL/min/1.73 m2 [facility] Comment on above: Order Comment: Order added by Discern Expert. Performed By: #### 1 [id number] ####OVIDIO [address] [place] [address] GFR/1.73 sq M predicted among non-blacks MDRD vol rate/area (S/P/Bld) 36 mL/min/1.73 m2 [facility] Comment on above: Order Comment: Order added by Discern Expert. Performed By: #### 1 [id number] ####OVIDIO [address] [place] [address] Cult,Tissueon 08-26-2018 Cult,Tissue Specimen Description .TISSUE EPIDURAL [...] Trimethoprim/Sulfa <=10 SUSCEPTIBLE Vancomycin <=0.5 SUSCEPTIBLE Normal [facility] Comment on above: Performed By: #### L ACWB #### [address] [id number] Cult,Tissue Specimen Description .SPINE .TISSUE T4 LAMINA [...] Trimethoprim/Sulfa <=10 SUSCEPTIBLE Vancomycin <=0.5 SUSCEPTIBLE Normal [facility] Comment on above: Performed By: #### L ACWB #### [address] [id number] Basic Metabolic Profon 08-25 (cont.) Normal [facility] Comment on above: Result Comment: Aver age GFR for 30-39 years old: 107 mL/min/1.73sq m Chronic Kidney Disease: <60 mL/min/1.73sq m Kidney failure: <15 mL/min/1.73sq m eGFR calculated using average adult body mass. Additional eGFR calculator available at: http://www.[employer].com/multiple_crcl_2012.htm Performed By: #### L ACWB #### [address] [id number] Anion gap molar conc 14 mmol/L Normal 9-17 [facility] Comment on above: Performed By: #### L ACWB #### [facility] [address] [place] [address] Calcium mass conc 9.1 mg/dL Normal 8.6-10.4 [facility] Comment on above: Performed By: #### L ACWB #### [facility] [address] [place] [address] Chloride molar conc 96 mmol/L Low 98-107 [facility] Comment on above: Performed By: #### L ACWB #### [facility] [address] [place] [address] CO2 molar conc 23 mmol/L Normal 20-31 [facility] Comment on above: Performed By: #### L ACWB #### [facility] [address] [place] [address] Creatinine mass conc 1.52 mg/dL High 0.50-0.90 [facility] Comment on above: Performed By: #### L ACWB #### [facility] [address] [place] [address] GFR, Amer 46 mL/min Low >60 [facility] Comment on above: Performed By: #### L ACWB #### [facility] [address] [place] [address] GFR,non Amer 38 mL/min Low >60 [facility] Comment on above: Performed By: #### L ACWB #### [facility] [address] [place] [address] Glucose mass conc 95 mg/dL Normal 70-99 [facility] Comment on above: Performed By: #### L ACWB #### [facility] [address] [place] [address] Potassium molar conc 4.5 mmol/L Normal 3.7-5.3 [facility] Comment on above: Performed By: #### L ACWB #### [facility] [address] [place] [address] Sodium molar conc 133 mmol/L Low 135-144 [facility] Comment on above: Performed By: #### L ACWB #### [facility] [address] [place] [address] Urea nitrogen mass conc 43 mg/dL High 6-20 [facility] Comment on above: Performed By: #### L ACWB #### [address] [address] BUN/CRE Ratio NOT REPORTED Normal - [facility] Comment on above: Performed By: #### L ACWB #### [address] [address] Staging: NOT REPORTED Normal [facility] Comment on above: Performed By: #### L ACWB #### [facility] [address] [place] [address] CBC with Diffon 08-25-2018 Abs. Basophil 0.07 k/uL Normal 0.00-0.20 [facility] Comment on above: Performed By: #### L ACWB #### [facility] [address] [place] [address] Abs.Imm.Granulocyte 0.08 k/uL Normal 0.00-0.30 [facility] Comment on above: Performed By: #### L ACWB #### [facility] [address] [place] [address] Abs.Neutrophil (Seg) 5.77 k/uL Normal 1.50-8.10 [facility] Comment on above: Performed By: #### L ACWB #### [facility] [address] [place] [address] Basophils/100 WBC (Bld) 1 % Normal 0-2 [facility] Comment on above: Performed By: #### L ACWB #### [address] [address] Eosinophils #/vol (Bld) 0.12 10*3/uL Normal 0.00-0.44 [facility] Comment on above: Performed By: #### L ACWB #### [address] [address] Eosinophils/100 WBC (Bld) 1 % Normal 1-4 [facility] Comment on above: Performed By: #### L ACWB #### [address] [address] Immature granulocytes #/vol (Bld) 1 % High 0 [facility] Comment on above: Performed By: #### L ACWB #### [address] [address] Lymphocytes #/vol (Bld) 1.83 10*3/uL Normal 1.10-3.70 [facility] Comment on above: Performed By: #### L ACWB #### [address] [address] Lymphocytes/100 WBC (Bld) 21 % Low 24-43 [facility] Comment on above: Performed By: #### L ACWB #### [address] [address] Monocytes #/vol (Bld) 0.92 10*3/uL Normal 0.10-1.20 [facility] Comment on above: Performed By: #### L ACWB #### [address] [address] Monocytes/100 WBC (Bld) 11 % Normal 3-12 [facility] Comment on above: Performed By: #### L ACWB #### [address] [address] Neutrophil (Seg) 66 % High 36-65 [facility] Comment on above: Performed By: #### L ACWB #### [address] [address] Erythrocyte distribution width Ratio (RBC) 14.6 % High 11.8-14.4 [facility] Comment on above: Performed By: #### L ACWB #### [address] [address] Hematocrit Volume Fraction (Bld) 32.6 % Low 36.3-47.1 [facility] Comment on above: Performed By: #### L ACWB #### [address] [address] Hemoglobin mass conc (Bld) 10.0 g/dL Low 11.9-15.1 [facility] Comment on above: Performed By: #### L ACWB #### [address] [address] MCH Entitic mass (RBC) 28.2 pg Normal 25.2-33.5 [facility] Comment on above: Performed By: #### L ACWB #### [address] [address] MCHC mass conc (RBC) 30.7 g/dL Normal 28.4-34.8 [facility] Comment on above: Performed By: #### L ACWB #### [address] [address] MCV Entitic volume (RBC) 91.8 fL Normal 82.6-102.9 [facility] Comment on above: Performed By: #### L ACWB #### [address] [address] NRBC Automated 0.0 per 100 WBC Normal 0.0 [facility] Comment on above: Performed By: #### L ACWB #### [address] [address] Platelet mean volume Entitic volume (Bld) 10.4 fL Normal 8.1-13.5 [facility] Comment on above: Performed By: #### L ACWB #### [address] [address] Platelets #/vol (Bld) 292 10*3/uL Normal 138-453 [facility] Comment on above: Performed By: #### L ACWB #### [address] [address] RBC #/vol (Bld) 3.55 10*6/uL Low 3.95-5.11 [facility] Comment on above: Performed By: #### L ACWB #### [address] [address] RBC morphology finding Nom (Bld) ANISOCYTOSIS PRESENT Normal [facility] Comment on above: Performed By: #### L ACWB #### [address] [address] WBC #/vol (Bld) 8.8 10*3/uL Normal 3.5-11.3 [facility] Comment on above: Performed By: #### L ACWB #### [address] [address] Auto Diff Performed NOT REPORTED Normal [facility] Comment on above: Performed By: #### L ACWB #### [address] [address] Platelets #/vol (Bld) NOT REPORTED Normal [facility] Comment on above: Performed By: #### L ACWB #### [place] [address] [place] [address] WBC Morphology NOT REPORTED Normal [facility] Comment on above: Performed By: #### L ACWB #### [facility] [place] [address] Fungi,Direct Examon 08-25-20 18 Fungi,Direct Exam Specimen Description .SPINE .TISSUE T4 LAMINA Special Requests NOT REPORTED Direct Exam NO FUNGAL ELEMENTS SEEN Report Status FINAL 08/25/2018 Normal [facility] Comment on above: Performed By: #### L ACWB #### [facility] [address] [place] [address] Magnesiumon 08-25-2018 Magnesium mass conc 2.4 mg/dL Normal 1.6-2.6 [facility] Comment on above: Performed By: #### L ACWB #### [address] [address] Procalcitoninon 08-25-2018 Protein mass conc 0.13 ng/mL High <0.09 [facility] Comment on above: Result [...] entered into the Change in Procalcitonin Calculator (www.qeritz-dzo-cvrlurywdv.com) to determine the patient's Mortality Risk Prognosis Performed By: #### L ACWB #### [address] [id number] Cult,Aerobe/Anaerobeon 08-24 Cult,Aerobe/Anaerobe Specimen Descriptio n .SPINE Special Requests NOT REPORTED Direct Exam DUPLICATE ORDER SEE RESULTS FOR TISSUE CULTURE Culture NOT REPORTED Report Status FINAL 08/24/2018 [facility] Comment on above: Performed By: #### S PAG #### [address] [id number] Cult,Aerobe/Anaerobe Specimen Descriptio n .SPINE Special Requests NOT REPORTED Direct Exam DUPLICATE ORDER SEE RESUULTS FOR TISSUE CULTURE Culture NOT REPORTED Report Status FINAL 08/24/2018 [facility] Comment on above: Performed By: #### S PAG #### [address] [id number] FLUORO FOR SURGICAL PROCEDUR ESon 08-24-2018 FLUORO FOR SURGICAL PROCEDURES Radiology exam is complete. No Radiologist dictation. Please follow up with ordering provider. Final result Normal [facility] OPERATIVE REPORTon 8 OPERATIVE REPORT [address] [address] OPERATIVE REPORT PATIENT NAME: CELINA GASPAR : 1980 MED REC NO: [id number] ROOM: 0431 ACCOUNT NO: [id number] ADMIT DATE: 08/15/2018 PROVIDER: Lita Mccray MD DATE OF PROCEDURE: 08/23/2018 SURGEON: Lita Mccray MD DEPENDENCY CASE MANAGER: Eliel Larios DO PREOPERATIVE DIAGNOSIS: Epidural abscess, [...] satisfactory condition. LITA MCCRAY MD [id number]/[id number]_I Doc#: [id number] CC: Lita Mccray MD [facility] Procalcitoninon 08-24-2018 Protein mass conc 0.16 ng/mL High <0.09 [facility] Comment on above: Result [...] entered into the Change in Procalcitonin Calculator (www.pwmqkx-nnl-ugajrigjex.com) to determine the patient's Mortality Risk Prognosis Performed By: #### S PAG #### [phone] [place] [address] Basic Metab w/rfx MGon 08-23 (cont.) [facility] Comment on above: Result Comment: Aver age GFR for 30-39 years old: 107 mL/min/1.73sq m Chronic Kidney Disease: <60 mL/min/1.73sq m Kidney failure: <15 mL/min/1.73sq m eGFR calculated using average adult body mass. Additional eGFR calculator available at: http://www.[employer]/multiple_crcl_2012.htm Performed By: #### S PAG #### [address] [address] Anion gap molar conc 14 mmol/L Normal 9-17 [facility] Comment on above: Performed By: #### S PAG #### [address] [address] Calcium mass conc 9.9 mg/dL Normal 8.6-10.4 [facility] Comment on above: Performed By: #### S PAG #### [address] [address] Chloride molar conc 99 mmol/L Normal 98-107 [facility] Comment on above: Performed By: #### S PAG #### [address] [address] CO2 molar conc 26 mmol/L Normal 20-31 [facility] Comment on above: Performed By: #### S PAG #### [address] [address] Creatinine mass conc 1.42 mg/dL High 0.50-0.90 [facility] Comment on above: Performed By: #### S PAG #### [address] [address] GFR, Amer 50 mL/min Low >60 [facility] Comment on above: Performed By: #### S PAG #### [address] [address] GFR,non Amer 41 mL/min Low >60 [facility] Comment on above: Performed By: #### S PAG #### [address] [address] Glucose mass conc 95 mg/dL Normal 70-99 [facility] Comment on above: Performed By: #### S PAG #### [address] [address] Potassium molar conc 4.9 mmol/L Normal 3.7-5.3 [facility] Comment on above: Result Comment: SPEC IMEN SLIGHTLY HEMOLYZED, RESULTS MAY BE ADVERSELY AFFECTED. Performed By: #### S PAG #### [facility] [address] [place] [address] Sodium molar conc 139 mmol/L Normal 135-144 [facility] Comment on above: Performed By: #### S PAG #### [facility] [address] [place] [address] 28070 Urea nitrogen mass conc 31 mg/dL High 6-20 [facility] Comment on above: Performed By: #### S PAG #### [facility] [address] [place] [address]169 BUN/CRE Ratio NOT REPORTED Normal 9-20 [facility] Comment on above: Performed By: #### S PAG #### [address] [address] Staging: NOT REPORTED Normal [facility] Comment on above: Performed By: #### S PAG #### [facility] [address] [place] [address] CBC with Diffon 08-23-2018 Abs. Basophil 0.06 k/uL Normal 0.00-0.20 [facility] Comment on above: Performed By: #### S PAG #### [facility] [address] [place] [address] Abs.Imm.Granulocyte 0.22 k/uL Normal 0.00-0.30 [facility] Comment on above: Performed By: #### S PAG #### [facility] [address] [place] [address] Abs.Neutrophil (Seg) 4.43 k/uL Normal 1.50-8.10 [facility] Comment on above: Performed By: #### S PAG #### [address] [address] Basophils/100 WBC (Bld) 1 % Normal 0-2 [facility] Comment on above: Performed By: #### S PAG #### [facility] [address] [place] [address]46 Eosinophils #/vol (Bld) 0.15 10*3/uL Normal 0.00-0.44 [facility] Comment on above: Performed By: #### S PAG #### [facility] [address] [place] [address]05 Eosinophils/100 WBC (Bld) 2 % Normal 1-4 [facility] Comment on above: Performed By: #### S PAG #### [address] [address] Erythrocyte distribution width Ratio (RBC) 14.4 % Normal 11.8-14.4 [facility] Comment on above: Performed By: #### S PAG #### [address] [address] Hematocrit Volume Fraction (Bld) 33.2 % Low 36.3-47.1 [facility] Comment on above: Performed By: #### S PAG #### [facility] [address] [place] [address]27 Hemoglobin mass conc (Bld) 10.4 g/dL Low 11.9-15.1 [facility] Comment on above: Performed By: #### S PAG #### [facility] [address] [place] [address] Immature granulocytes #/vol (Bld) 3 % High 0 [facility] Comment on above: Performed By: #### S PAG #### [address] [address] Lymphocytes #/vol (Bld) 2.22 10*3/uL Normal 1.10-3.70 [facility] Comment on above: Performed By: #### S PAG #### [address] [address] Lymphocytes/100 WBC (Bld) 29 % Normal 24-43 [facility] Comment on above: Performed By: #### S PAG #### [address] [address] MCH Entitic mass (RBC) 27.7 pg Normal 25.2-33.5 [facility] Comment on above: Performed By: #### S PAG #### [address] [address] MCHC mass conc (RBC) 31.3 g/dL Normal 28.4-34.8 [facility] Comment on above: Performed By: #### S PAG #### [address] [address] MCV Entitic volume (RBC) 88.3 fL Normal 82.6-102.9 [facility] Comment on above: Performed By: #### S PAG #### [address] [address] Monocytes #/vol (Bld) 0.63 10*3/uL Normal 0.10-1.20 [facility] Comment on above: Performed By: #### S PAG #### [address] [address] Monocytes/100 WBC (Bld) 8 % Normal 3-12 [facility] Comment on above: Performed By: #### S PAG #### [address] [address] Neutrophil (Seg) 57 % Normal 36-65 [facility] Comment on above: Performed By: #### S PAG #### [address] [address] NRBC Automated 0.0 per 100 WBC Normal 0.0 [facility] Comment on above: Performed By: #### S PAG #### [address] [address] Platelets #/vol (Bld) See Reflexed IPF Result Normal 138-453 [facility] Comment on above: Performed By: #### S PAG #### [address] [address] RBC #/vol (Bld) 3.76 10*6/uL Low 3.95-5.11 [facility] Comment on above: Performed By: #### S PAG #### [address] [address] WBC #/vol (Bld) 7.7 10*3/uL Normal 3.5-11.3 [facility] Comment on above: Performed By: #### S PAG #### [address] [address] Auto Diff Performed NOT REPORTED Normal [facility] Comment on above: Performed By: #### S PAG #### [address] [address] Platelet mean volume Entitic volume (Bld) NOT REPORTED Normal 8.1-13.5 [facility] Comment on above: Performed By: #### S PAG #### [address] [address] Platelets #/vol (Bld) NOT REPORTED Normal [facility] Comment on above: Performed By: #### S PAG #### [address] [address] RBC morphology finding Nom (Bld) NOT REPORTED Normal [facility] Comment on above: Performed By: #### S PAG #### [address] [address] WBC Morphology NOT REPORTED Normal [facility] Comment on above: Performed By: #### S PAG #### [address] [address] Cult,Bloodon 08-23-2018 Cult,Blood Specimen Description .BLOOD Special Requests L AC 6ML Culture NO GROWTH 6 DAYS Report Status FINAL 08/23/2018 Normal [facility] Comment on above: Performed By: #### S PAG #### [address] [address] Cult,Blood Specimen Description .BLOOD Special Requests L FOREARM 6ML Culture NO GROWTH 6 DAYS Report Status FINAL 08/23/2018 Normal [facility] Comment on above: Performed By: #### S PAG #### [address] [address] PLT, Immature Fract.on 08-23 Platelet, Fluoresc. 113 k/uL Low 138-453 [facility] Comment on above: Performed By: #### S PAG #### [address] [address] PLT, Immature Fract. 3.7 % Normal 1.1-10.3 [facility] Comment on above: Performed By: #### S PAG #### [address] [address] CBC with Diffon 08-22-2018 Abs. Basophil 0.00 k/uL Normal 0.0-0.2 [facility] Comment on above: Performed By: #### U LAG #### [address] [address] Abs.Imm.Granulocyte 0.30 k/uL Normal 0.00-0.30 [facility] Comment on above: Performed By: #### U LAG #### [address] [address] Abs.Neutrophil (Seg) 4.87 k/uL Normal 1.8-7.7 [facility] Comment on above: Performed By: #### U LAG #### [address] [address] Basophils/100 WBC (Bld) 0 % Normal 0-2 [facility] Comment on above: Performed By: #### U LAG #### [address] [address] Eosinophils #/vol (Bld) 0.00 10*3/uL Normal 0.0-0.4 [facility] Comment on above: Performed By: #### U LAG #### [facility] [address] [place] [address] Eosinophils/100 WBC (Bld) 0 % Low 1-4 [facility] Comment on above: Performed By: #### U LAG #### [address] [address] Immature granulocytes #/vol (Bld) 4 % High 0 [facility] Comment on above: Performed By: #### U LAG #### [facility] [address] [place] [address] Lymphocytes #/vol (Bld) 1.88 10*3/uL Normal 1.0-4.8 [facility] Comment on above: Performed By: #### U LAG #### [address] [address] Lymphocytes/100 WBC (Bld) 25 % Normal 24-44 [facility] Comment on above: Performed By: #### U LAG #### [facility] [address] [place] [address] Monocytes #/vol (Bld) 0.45 10*3/uL Normal 0.1-0.8 [facility] Comment on above: Performed By: #### U LAG #### [facility] [address] [place] [address] Monocytes/100 WBC (Bld) 6 % Normal 1-7 [facility] Comment on above: Performed By: #### U LAG #### [facility] [address] [place] [address] Morphology Interp Rehan (Bld) ANISOCYTOSIS PRESENT Normal [facility] Comment on above: Performed By: #### U LAG #### [facility] [address] [place] [address] Neutrophil (Seg) 65 % Normal 36-66 [facility] Comment on above: Performed By: #### U LAG #### [facility] [address] [place] [address] Erythrocyte distribution width Ratio (RBC) 14.5 % High 11.8-14.4 [facility] Comment on above: Performed By: #### U LAG #### [facility] [address] [place] [address] Hematocrit Volume Fraction (Bld) 38.1 % Normal 36.3-47.1 [facility] Comment on above: Performed By: #### U LAG #### [facility] [address] [place] [address] Hemoglobin mass conc (Bld) 11.5 g/dL Low 11.9-15.1 [facility] Comment on above: Performed By: #### U LAG #### [facility] [address] [place] [address]753 MCH Entitic mass (RBC) 28.3 pg Normal 25.2-33.5 [facility] Comment on above: Performed By: #### U LAG #### [address] [address] MCHC mass conc (RBC) 30.2 g/dL Normal 28.4-34.8 [facility] Comment on above: Performed By: #### U LAG #### [address] [address] MCV Entitic volume (RBC) 93.6 fL Normal 82.6-102.9 [facility] Comment on above: Performed By: #### U LAG #### [address] [address] NRBC Automated 0.0 per 100 WBC Normal 0.0 [facility] Comment on above: Performed By: #### U LAG #### [address] [address] Platelet mean volume Entitic volume (Bld) 10.7 fL Normal 8.1-13.5 [facility] Comment on above: Performed By: #### U LAG #### [address] [address] Platelets #/vol (Bld) 265 10*3/uL Normal 138-453 [facility] Comment on above: Performed By: #### U LAG #### [address] [address] RBC #/vol (Bld) 4.07 10*6/uL Normal 3.95-5.11 [facility] Comment on above: Performed By: #### U LAG #### [address] [address] WBC #/vol (Bld) 7.5 10*3/uL Normal 3.5-11.3 [facility] Comment on above: Performed By: #### U LAG #### [facility] [place] [address] Auto Diff Performed NOT REPORTED Normal [facility] Comment on above: Performed By: #### U LAG #### [facility] [address] [place] [address] Platelets #/vol (Bld) NOT REPORTED Normal [facility] Comment on above: Performed By: #### U LAG #### [facility] [address] [place] [address] RBC morphology finding Nom (Bld) NOT REPORTED Normal [facility] Comment on above: Performed By: #### U LAG #### [facility] [address] [place] [address] WBC Morphology NOT REPORTED Normal [facility] Comment on above: Performed By: #### U LAG #### [facility] [address] [place] [address] Comp Metabolic Pr/rfx MGon 1 10-22-2017 Albumin mass conc 3.2 g/dL Low 3.5-5.2 [facility] Comment on above: Performed By: #### U LAG #### [facility] [address] [place] [address] Albumin/Globulin mass ratio 0.8 {ratio} Low 1.0-2.5 [facility] Comment on above: Performed By: #### U LAG #### [facility] [address] [place] [address] Alkaline Phos 90 U/L Normal 35-104 [facility] Comment on above: Performed By: #### U LAG #### [facility] [address] [place] [address]84 ALT enzyme act/vol 18 U/L Normal 5-33 [facility] Comment on above: Performed By: #### U LAG #### [facility] [facility] [place] [address] AST enzyme act/vol 16 U/L Normal <32 [facility] Comment on above: Performed By: #### U LAG #### [facility] [place] [address] Protein mass conc 7.0 g/dL Normal 6.4-8.3 [facility] Comment on above: Performed By: #### U LAG #### [employer] [address] [place] [address] (cont.) Normal [facility] Comment on above: Result Comment: Aver age GFR for 30-39 years old: 107 mL/min/1.73sq m Chronic Kidney Disease: <60 mL/min/1.73sq m Kidney failure: <15 mL/min/1.73sq m eGFR calculated using average adult body mass. Additional eGFR calculator available at: http://www.[employer]/multiple_crcl_2012.htm Performed By: #### U LAG #### [facility] [address] [place] [address] Anion gap molar conc 15 mmol/L Normal 9-17 [facility] Comment on above: Performed By: #### U LAG #### [employer] [address] [place] [address]85 Bilirubin Ql (U) 0.34 mg/dL Normal 0.3-1.2 [facility] Comment on above: Performed By: #### U LAG #### [employer] [address] [place] [address]84 Calcium mass conc 9.7 mg/dL Normal 8.6-10.4 [facility] Comment on above: Performed By: #### U LAG #### [facility] [place] [address] Chloride molar conc 100 mmol/L Normal 98-107 [facility] Comment on above: Performed By: #### U LAG #### [facility] [address] [place] [address] CO2 molar conc 24 mmol/L Normal 20-31 [facility] Comment on above: Performed By: #### U LAG #### [facility] [address] [place] [address] Creatinine mass conc 1.02 mg/dL High 0.50-0.90 [facility] Comment on above: Performed By: #### U LAG #### [facility] [address] [place] [address] GFR, Amer >60 Normal >60 [facility] Comment on above: Performed By: #### U LAG #### [facility] [address] [place] [address] GFR,non Amer >60 Normal >60 [facility] Comment on above: Performed By: #### U LAG #### [facility] [address] [place] [address]12 Glucose mass conc 101 mg/dL High 70-99 [facility] Comment on above: Performed By: #### U LAG #### [facility] [address] [place] [address] Potassium molar conc 4.5 mmol/L Normal 3.7-5.3 [facility] Comment on above: Performed By: #### U LAG #### [facility] [address] [place] [address]33 Sodium molar conc 139 mmol/L Normal 135-144 [facility] Comment on above: Performed By: #### U LAG #### [facility] [address] [place] [address] Urea nitrogen mass conc 19 mg/dL Normal 6-20 [facility] Comment on above: Performed By: #### U LAG #### [facility] [address] [place] [address] BUN/CRE Ratio NOT REPORTED Normal 06-24 [facility] Comment on above: Performed By: #### U LAG #### [facility] [address] [place] [address]91 Staging: NOT REPORTED Normal [facility] Comment on above: Performed By: #### U LAG #### [facility] [address] [place] [address] Magnesiumon 08-22-2018 Magnesium mass conc 2.4 mg/dL Normal 1.6-2.6 [facility] Comment on above: Performed By: #### U LAG #### [facility] [address] [place] [address] 13681 Vancomycin Troughon 08-22-20 18 Vancomycin Trough 20.2 ug/mL Critically high 10.0-20.0 [facility] Comment on above: Result Comment: High er trough serum vancomycin concentrations of 15-20 ug/mL are recommended for complicated infections such as bacteremia, endocarditis, osteomyelitis, meningitis, and hospital acquired pneumonia. ADDED ON Performed By: #### U LAG #### [facility] [address] [place] [address]773 Date last dose, NOT REPORTED Normal [facility] Comment on above: Performed By: #### U LAG #### [facility] [address] [place] [address] 14051 Dose amount, NOT REPORTED Normal [facility] Comment on above: Performed By: #### U LAG #### [facility] [address] [place] [address] Time last dose, NOT REPORTED Normal [facility] Comment on above: Performed By: #### U LAG #### [facility] [address] [place] [address] CBC with Diffon 08-21-2018 Abs. Basophil 0.08 k/uL Normal 0.00-0.20 [facility] Comment on above: Performed By: #### U LAG #### [address] [address] Abs.Imm.Granulocyte 0.50 k/uL High 0.00-0.30 [facility] Comment on above: Performed By: #### U LAG #### [address] [address] Abs.Neutrophil (Seg) 4.73 k/uL Normal 1.50-8.10 [facility] Comment on above: Performed By: #### U LAG #### [address] [address] Basophils/100 WBC (Bld) 1 % Normal 0-2 [facility] Comment on above: Performed By: #### U LAG #### [address] [address] Eosinophils #/vol (Bld) 0.17 10*3/uL Normal 0.00-0.44 [facility] Comment on above: Performed By: #### U LAG #### [address] [address] Eosinophils/100 WBC (Bld) 2 % Normal 1-4 [facility] Comment on above: Performed By: #### U LAG #### [address] [address] Immature granulocytes #/vol (Bld) 6 % High 0 [facility] Comment on above: Performed By: #### U LAG #### [address] [address] Lymphocytes #/vol (Bld) 2.24 10*3/uL Normal 1.10-3.70 [facility] Comment on above: Performed By: #### U LAG #### [place] [place] [address] Lymphocytes/100 WBC (Bld) 27 % Normal 24-43 [facility] Comment on above: Performed By: #### U LAG #### [address] [address] Monocytes #/vol (Bld) 0.58 10*3/uL Normal 0.10-1.20 [facility] Comment on above: Performed By: #### U LAG #### [address] [address] Monocytes/100 WBC (Bld) 7 % Normal 3-12 [facility] Comment on above: Performed By: #### U LAG #### [address] [address] Morphology Interp Rehan (Bld) ANISOCYTOSIS PRESENT Normal [facility] Comment on above: Performed By: #### U LAG #### [address] [address] Neutrophil (Seg) 57 % Normal 36-65 [facility] Comment on above: Performed By: #### U LAG #### [address] [address] Erythrocyte distribution width Ratio (RBC) 14.6 % High 11.8-14.4 [facility] Comment on above: Performed By: #### U LAG #### [address] [address] Hematocrit Volume Fraction (Bld) 38.5 % Normal 36.3-47.1 [facility] Comment on above: Performed By: #### U LAG #### [address] [address] Hemoglobin mass conc (Bld) 11.5 g/dL Low 11.9-15.1 [facility] Comment on above: Performed By: #### U LAG #### [address] [address] MCH Entitic mass (RBC) 28.2 pg Normal 25.2-33.5 [facility] Comment on above: Performed By: #### U LAG #### [address] [address] MCHC mass conc (RBC) 29.9 g/dL Normal 28.4-34.8 [facility] Comment on above: Performed By: #### U LAG #### [address] [address] MCV Entitic volume (RBC) 94.4 fL Normal 82.6-102.9 [facility] Comment on above: Performed By: #### U LAG #### [address] [address] NRBC Automated 0.0 per 100 WBC Normal 0.0 [facility] Comment on above: Performed By: #### U LAG #### [address] [address] Platelet mean volume Entitic volume (Bld) 10.5 fL Normal 8.1-13.5 [facility] Comment on above: Performed By: #### U LAG #### [address] [address] Platelets #/vol (Bld) 264 10*3/uL Normal 138-453 [facility] Comment on above: Performed By: #### U LAG #### [address] [address] RBC #/vol (Bld) 4.08 10*6/uL Normal 3.95-5.11 [facility] Comment on above: Performed By: #### U LAG #### [facility] [place] [address] WBC #/vol (Bld) 8.3 10*3/uL Normal 3.5-11.3 [facility] Comment on above: Performed By: #### U LAG #### [address] [address] Auto Diff Performed NOT REPORTED Normal [facility] Comment on above: Performed By: #### U LAG #### [facility] [address] [place] [address] 6[address]34 Platelets #/vol (Bld) NOT REPORTED Normal [facility] Comment on above: Performed By: #### U LAG #### [facility] [address] [place] [address] 31059 RBC morphology finding Nom (Bld) NOT REPORTED Normal [facility] Comment on above: Performed By: #### U LAG #### [facility] [address] [place] [address]191 WBC Morphology NOT REPORTED Normal [facility] Comment on above: Performed By: #### U LAG #### [address] [address] Comp Metabolic Pr/rfx MGon 1 10-21-2017 (cont.) Normal [facility] Comment on above: Result Comment: Aver age GFR for 30-39 years old: 107 mL/min/1.73sq m Chronic Kidney Disease: <60 mL/min/1.73sq m Kidney failure: <15 mL/min/1.73sq m eGFR calculated using average adult body mass. Additional eGFR calculator available at: http://www.[employer]/multiple_crcl_2012.htm Performed By: #### U LAG #### [address] [address] Albumin mass conc 2.9 g/dL Low 3.5-5.2 [facility] Comment on above: Performed By: #### U LAG #### [facility] [address] [place] [address]77 Albumin/Globulin mass ratio 0.7 {ratio} Low 1.0-2.5 [facility] Comment on above: Performed By: #### U LAG #### [facility] [address] [place] [address] 52473 Alkaline Phos 98 U/L Normal 35-104 [facility] Comment on above: Performed By: #### U LAG #### [facility] [address] [place] [address] 6[address]18 ALT enzyme act/vol 19 U/L Normal 5-33 [facility] Comment on above: Performed By: #### U LAG #### [facility] [address] [place] [address] 21072 Anion gap molar conc 14 mmol/L Normal 9-17 [facility] Comment on above: Performed By: #### U LAG #### [facility] [address] [place] [address] 66632 AST enzyme act/vol 21 U/L Normal <32 [facility] Comment on above: Performed By: #### U LAG #### [facility] [address] [place] [address]54 Bilirubin Ql (U) 0.32 mg/dL Normal 0.3-1.2 [facility] Comment on above: Performed By: #### U LAG #### [facility] [address] [place] [address] 79521 Calcium mass conc 9.1 mg/dL Normal 8.6-10.4 [facility] [facility] Comment on above: Performed By: #### U LAG #### [facility] [address] [place] [address] 94262 Chloride molar conc 102 mmol/L Normal 98-107 [facility] Comment on above: Performed By: #### U LAG #### [facility] [address] [place] [address] 84089 CO2 molar conc 23 mmol/L Normal 20-31 [facility] Comment on above: Performed By: #### U LAG #### [facility] [address] [place] [address] 39524 Creatinine mass conc 0.90 mg/dL Normal 0.50-0.90 [facility] Comment on above: Performed By: #### U LAG #### [facility] [address] [place] [address] 26250 GFR, Amer >60 Normal >60 [facility] Comment on above: Performed By: #### U LAG #### [facility] [address] [place] [address] 47637 GFR,non Amer >60 Normal >60 [facility] Comment on above: Performed By: #### U LAG #### [facility] [address] [place] [address] 97175 Glucose mass conc 108 mg/dL High 70-99 [facility] Comment on above: Performed By: #### U LAG #### [facility] [address] [place] [address] 30809 Potassium molar conc 4.6 mmol/L Normal 3.7-5.3 [facility] Comment on above: Performed By: #### U LAG #### [facility] [address] [place] [address] 87357 Protein mass conc 6.9 g/dL Normal 6.4-8.3 [facility] Comment on above: Performed By: #### U LAG #### [facility] [address] [place] [address] 80338 Sodium molar conc 139 mmol/L Normal 135-144 [facility] Comment on above: Performed By: #### U LAG #### [facility] [place] [address] Urea nitrogen mass conc 17 mg/dL Normal -20 [facility] Comment on above: Performed By: #### U LAG #### [facility] [place] [address] BUN/CRE Ratio NOT REPORTED Normal - [facility] Comment on above: Performed By: #### U LAG #### [facility] [address] [place] [address] 29517 Staging: NOT REPORTED Normal [facility] Comment on above: Performed By: #### U LAG #### [facility] [address] [place] [address] 33018 Cult,Bloodon 08-21-2018 Cult,Blood Specimen Description .BLOOD Special Requests L AC 20ML Culture POSITIVE Blood Culture CALLED TO MIS Medina [phone] [id number] DIRECT GRAM STAIN FROM BOTTLE: GRAM POSITIVE COCCI IN CLUSTERS METHICILLIN RESISTANT STAPHYLOCOCCUS AUREUS For susceptibility, refer to previous culture. Report Status FINAL 08/21/2018 Normal [facility] Comment on above: Performed By: #### U LAG #### [address] [address] MRI FOOT LEFT W WO CONTRASTo n [...] Murali Goff MD 08/21/18 Final result Normal [facility] Magnesiumon 08-21-2018 Magnesium mass conc 2.4 mg/dL Normal 1.6-2.6 [facility] Comment on above: Performed By: #### U LAG #### [facility] [address] [place] [address] Procalcitoninon 08-21-2018 Protein mass conc 0.27 ng/mL High <0.09 [facility] Comment on above: Result [...] entered into the Change in Procalcitonin Calculator (www.ytxihz-jit-cxgtqdwuns.[employer]) to determine the patient's Mortality Risk Prognosis Performed By: #### U LAG #### [facility] [address] [place] [address] C-Reactive Proteinon 018 CRP mass conc 50.4 mg/L High 0.0-5.0 [facility] Comment on above: Performed By: #### L ACDS, TROPI, PRCAL, MYCM #### [facility] [address] [place] [address] CBC with Diffon 08-20-2018 Abs. Basophil 0.08 k/uL Normal 0.0-0.2 [facility] Comment on above: Performed By: #### L ACDS, TROPI, PRCAL, MYCM #### [facility] [address] [place] [address] 26518 Abs.Imm.Granulocyte 0.42 k/uL High 0.00-0.30 [facility] Comment on above: Performed By: #### L ACDS, TROPI, PRCAL, MYCM #### [facility] [address] [place] [address] 93433 Abs.Neutrophil (Seg) 4.57 k/uL Normal 1.8-7.7 [facility] Comment on above: Performed By: #### L ACDS, TROPI, PRCAL, MYCM #### [facility] [address] [place] [address] 01479 Basophils/100 WBC (Bld) 1 % Normal 0-2 [facility] Comment on above: Performed By: #### L ACDS, TROPI, PRCAL, MYCM #### [address] [address] Eosinophils #/vol (Bld) 0.25 10*3/uL Normal 0.0-0.4 [facility] Comment on above: Performed By: #### L ACDS, TROPI, PRCAL, MYCM #### [address] [address] Eosinophils/100 WBC (Bld) 3 % Normal 1-4 [facility] Comment on above: Performed By: #### L ACDS, TROPI, PRCAL, MYCM #### [address] [address] Immature granulocytes #/vol (Bld) 5 % High 0 [facility] Comment on above: Performed By: #### L ACDS, TROPI, PRCAL, MYCM #### [address] [address] Lymphocytes #/vol (Bld) 2.32 10*3/uL Normal 1.0-4.8 [facility] Comment on above: Performed By: #### L ACDS, TROPI, PRCAL, MYCM #### [facility] [address] [place] [address] 04811 Lymphocytes/100 WBC (Bld) 28 % Normal 24-44 [facility] Comment on above: Performed By: #### L ACDS, TROPI, PRCAL, MYCM #### [address] [address] Monocytes #/vol (Bld) 0.66 10*3/uL Normal 0.1-0.8 [facility] Comment on above: Performed By: #### L ACDS, TROPI, PRCAL, MYCM #### [address] [address] Monocytes/100 WBC (Bld) 8 % High 1-7 [facility] Comment on above: Performed By: #### L ACDS, TROPI, PRCAL, MYCM #### [facility] [address] [place] [address] 90445 Morphology Interp Rehan (Bld) ANISOCYTOSIS PRESENT Normal [facility] Comment on above: Performed By: #### L ACDS, TROPI, PRCAL, MYCM #### [address] [address] Neutrophil (Seg) 55 % Normal 36-66 [facility] Comment on above: Performed By: #### L ACDS, TROPI, PRCAL, MYCM #### [facility] [address] [place] [address] 11247 Erythrocyte distribution width Ratio (RBC) 14.6 % High 11.8-14.4 [facility] Comment on above: Performed By: #### L ACDS, TROPI, PRCAL, MYCM #### [address] [address] Hematocrit Volume Fraction (Bld) 33.5 % Low 36.3-47.1 [facility] Comment on above: Performed By: #### L ACDS, TROPI, PRCAL, MYCM #### [facility] [address] [place] [address] 37135 Hemoglobin mass conc (Bld) 10.2 g/dL Low 11.9-15.1 [facility] Comment on above: Performed By: #### L ACDS, TROPI, PRCAL, MYCM #### [facility] [address] [place] [address] 34009 MCH Entitic mass (RBC) 27.9 pg Normal 25.2-33.5 [facility] Comment on above: Performed By: #### L ACDS, TROPI, PRCAL, MYCM #### [address] [address] MCHC mass conc (RBC) 30.4 g/dL Normal 28.4-34.8 [facility] Comment on above: Performed By: #### L ACDS, TROPI, PRCAL, MYCM #### [facility] [address] [place] [address] 32186 MCV Entitic volume (RBC) 91.5 fL Normal 82.6-102.9 [facility] Comment on above: Performed By: #### L ACDS, TROPI, PRCAL, MYCM #### [address] [address] NRBC Automated 0.0 per 100 WBC Normal 0.0 [facility] Comment on above: Performed By: #### L ACDS, TROPI, PRCAL, MYCM #### [address] [address] Platelet mean volume Entitic volume (Bld) 11.0 fL Normal 8.1-13.5 [facility] Comment on above: Performed By: #### L ACDS, TROPI, PRCAL, MYCM #### [address] [address] Platelets #/vol (Bld) 211 10*3/uL Normal 138-453 [facility] Comment on above: Performed By: #### L ACDS, TROPI, PRCAL, MYCM #### [address] [address] RBC #/vol (Bld) 3.66 10*6/uL Low 3.95-5.11 [facility] Comment on above: Performed By: #### L ACDS, TROPI, PRCAL, MYCM #### [address] [address] WBC #/vol (Bld) 8.3 10*3/uL Normal 3.5-11.3 [facility] Comment on above: Performed By: #### L ACDS, TROPI, PRCAL, MYCM #### [facility] [address] [place] [address] 99502 Auto Diff Performed NOT REPORTED Normal [facility] Comment on above: Performed By: #### L ACDS, TROPI, PRCAL, MYCM #### [facility] [address] [place] [address] 92877 Platelets #/vol (Bld) NOT REPORTED Normal [facility] Comment on above: Performed By: #### L ACDS, TROPI, PRCAL, MYCM #### [facility] [address] [place] [address] 18136 RBC morphology finding Nom (Bld) NOT REPORTED Normal [facility] Comment on above: Performed By: #### L ACDS, TROPI, PRCAL, MYCM #### [facility] [address] [place] [address] 48106 WBC Morphology NOT REPORTED Normal [facility] Comment on above: Performed By: #### L ACDS, TROPI, PRCAL, MYCM #### [facility] [address] [place] [address] 51034 Comp Metabolic Pr/rfx MGon 1 10-20-2017 (cont.) Normal [facility] Comment on above: Result Comment: Aver age GFR for 30-39 years old: 107 mL/min/1.73sq m Chronic Kidney Disease: <60 mL/min/1.73sq m Kidney failure: <15 mL/min/1.73sq m eGFR calculated using average adult body mass. Additional eGFR calculator available at: http://www.globalrp.[employer]/multiple_crcl_2012.htm Performed By: #### L ACDS, TROPI, PRCAL, MYCM #### [facility] [address] [place] [address] 81725 Albumin mass conc 3.1 g/dL Low 3.5-5.2 [facility] Comment on above: Performed By: #### L ACDS, TROPI, PRCAL, MYCM #### [facility] [address] [place] [address] 90677 Albumin/Globulin mass ratio 0.9 {ratio} Low 1.0-2.5 [facility] Comment on above: Performed By: #### L ACDS, TROPI, PRCAL, MYCM #### [facility] [address] [place] [address] 26154 Alkaline Phos 83 U/L Normal 35-104 [facility] Comment on above: Performed By: #### L ACDS, TROPI, PRCAL, MYCM #### [facility] [address] [place] [address] 92155 ALT enzyme act/vol 17 U/L Normal 5-33 [facility] Comment on above: Performed By: #### L ACDS, TROPI, PRCAL, MYCM #### [facility] [address] [place] [address] 89913 Anion gap molar conc 11 mmol/L Normal 9-17 [facility] Comment on above: Performed By: #### L ACDS, TROPI, PRCAL, MYCM #### [facility] [address] [place] [address] 77776 AST enzyme act/vol 18 U/L Normal <32 [facility] Comment on above: Performed By: #### L ACDS, TROPI, PRCAL, MYCM #### [facility] [address] [place] [address] 16212 Bilirubin Ql (U) 0.29 mg/dL Low 0.3-1.2 [facility] Comment on above: Performed By: #### L ACDS, TROPI, PRCAL, MYCM #### [facility] [address] [place] [address] 30536 Calcium mass conc 9.0 mg/dL Normal 8.6-10.4 [facility] Comment on above: Performed By: #### L ACDS, TROPI, PRCAL, MYCM #### [facility] [address] [place] [address] 78411 Chloride molar conc 101 mmol/L Normal 98-107 [facility] Comment on above: Performed By: #### L ACDS, TROPI, PRCAL, MYCM #### [facility] [address] [place] [address] 54228 CO2 molar conc 27 mmol/L Normal 20-31 [facility] Comment on above: Performed By: #### L ACDS, TROPI, PRCAL, MYCM #### [facility] [address] [place] [address] 35902 Creatinine mass conc 0.97 mg/dL High 0.50-0.90 [facility] Comment on above: Performed By: #### L ACDS, TROPI, PRCAL, MYCM #### [facility] [address] [place] [address] 25982 GFR, Amer >60 Normal >60 [facility] Comment on above: Performed By: #### L ACDS, TROPI, PRCAL, MYCM #### [facility] [address] [place] [address] 18113 GFR,non Amer >60 Normal >60 [facility] Comment on above: Performed By: #### L ACDS, TROPI, PRCAL, MYCM #### [facility] [address] [place] [address] 54947 Glucose mass conc 105 mg/dL High 70-99 [facility] Comment on above: Performed By: #### L ACDS, TROPI, PRCAL, MYCM #### [facility] [address] [place] [address] 78694 Potassium molar conc 4.4 mmol/L Normal 3.7-5.3 [facility] Comment on above: Performed By: #### L ACDS, TROPI, PRCAL, MYCM #### [facility] [address] [place] [address] 20563 Protein mass conc 6.6 g/dL Normal 6.4-8.3 [facility] Comment on above: Performed By: #### L ACDS, TROPI, PRCAL, MYCM #### [facility] [address] [place] [address] 60986 Sodium molar conc 139 mmol/L Normal 135-144 [facility] Comment on above: Performed By: #### L ACDS, TROPI, PRCAL, MYCM #### [facility] [address] [place] [address] 84117 Urea nitrogen mass conc 15 mg/dL Normal -20 [facility] Comment on above: Performed By: #### L ACDS, TROPI, PRCAL, MYCM #### [facility] [address] [place] [address] 73777 BUN/CRE Ratio NOT REPORTED Normal - [facility] Comment on above: Performed By: #### L ACDS, TROPI, PRCAL, MYCM #### [facility] [address] [place] [address] 73247 Staging: NOT REPORTED Normal [facility] Comment on above: Performed By: #### L ACDS, TROPI, PRCAL, MYCM #### [facility] [address] [place] [address] 27262 Magnesiumon 08-20-2018 Magnesium mass conc 2.2 mg/dL Normal 1.6-2.6 [facility] Comment on above: Performed By: #### L ACDS, TROPI, PRCAL, MYCM #### [address] [address] Sedimentation Rateon 018 Sedimentation Rate 100 mm High 0-20 [facility] Comment on above: Performed By: #### L ACDS, TROPI, PRCAL, MYCM #### [address] [address] XR FOOT LEFT (MIN 3 VIEWS)on 08-20-2018 [...] Andrey Angelo MD 08/20/18 Final result Normal [facility] CBC with Diffon 08-19-2018 Abs. Basophil 0.00 k/uL Normal 0.0-0.2 [facility] Comment on above: Performed By: #### L ACDS, TROPI, PRCAL, MYCM #### [address] [address] Abs.Imm.Granulocyte 0.42 k/uL High 0.00-0.30 [facility] Comment on above: Performed By: #### L ACDS, TROPI, PRCAL, MYCM #### [address] [address] Abs.Neutrophil (Seg) 2.70 k/uL Normal 1.8-7.7 [facility] Comment on above: Performed By: #### L ACDS, TROPI, PRCAL, MYCM #### [facility] [address] [place] [address] 04163 Basophils/100 WBC (Bld) 0 % Normal 0-2 [facility] Comment on above: Performed By: #### L ACDS, TROPI, PRCAL, MYCM #### [address] [address] Eosinophils #/vol (Bld) 0.30 10*3/uL Normal 0.0-0.4 [facility] Comment on above: Performed By: #### L ACDS, TROPI, PRCAL, MYCM #### [facility] [address] [place] [address] 65861 Eosinophils/100 WBC (Bld) 5 % High 1-4 [facility] Comment on above: Performed By: #### L ACDS, TROPI, PRCAL, MYCM #### [address] [address] Immature granulocytes #/vol (Bld) 7 % High 0 [facility] Comment on above: Performed By: #### L ACDS, TROPI, PRCAL, MYCM #### [address] [address] Lymphocytes #/vol (Bld) 2.22 10*3/uL Normal 1.0-4.8 [facility] Comment on above: Performed By: #### L ACDS, TROPI, PRCAL, MYCM #### [facility] [address] [place] [address] 95545 Lymphocytes/100 WBC (Bld) 37 % Normal 24-44 [facility] Comment on above: Performed By: #### L ACDS, TROPI, PRCAL, MYCM #### [facility] [address] [place] [address] 70330 Monocytes #/vol (Bld) 0.36 10*3/uL Normal 0.1-0.8 M [facility] Comment on above: Performed By: #### L ACDS, TROPI, PRCAL, MYCM #### [address] [address] Monocytes/100 WBC (Bld) 6 % Normal 1-7 [facility] Comment on above: Performed By: #### L ACDS, TROPI, PRCAL, MYCM #### [facility] [address] [place] [address] 70247 Morphology Interp Rehan (Bld) ANISOCYTOSIS PRESENT Normal [facility] Comment on above: Performed By: #### L ACDS, TROPI, PRCAL, MYCM #### [facility] [address] [place] [address] 71029 Neutrophil (Seg) 45 % Normal 36-66 [facility] Comment on above: Performed By: #### L ACDS, TROPI, PRCAL, MYCM #### [facility] [address] [place] [address] 15103 Erythrocyte distribution width Ratio (RBC) 14.6 % High 11.8-14.4 [facility] Comment on above: Performed By: #### L ACDS, TROPI, PRCAL, MYCM #### [address] [address] Hematocrit Volume Fraction (Bld) 34.4 % Low 36.3-47.1 [facility] Comment on above: Performed By: #### L ACDS, TROPI, PRCAL, MYCM #### [facility] [address] [place] [address] 96023 Hemoglobin mass conc (Bld) 10.4 g/dL Low 11.9-15.1 [facility] Comment on above: Performed By: #### L ACDS, TROPI, PRCAL, MYCM #### [facility] [address] [place] [address] 28819 MCH Entitic mass (RBC) 28.0 pg Normal 25.2-33.5 [facility] Comment on above: Performed By: #### L ACDS, TROPI, PRCAL, MYCM #### [facility] [address] [place] [address] 99385 MCHC mass conc (RBC) 30.2 g/dL Normal 28.4-34.8 [facility] Comment on above: Performed By: #### L ACDS, TROPI, PRCAL, MYCM #### [facility] [address] [place] [address] 36225 MCV Entitic volume (RBC) 92.7 fL Normal 82.6-102.9 [facility] Comment on above: Performed By: #### L ACDS, TROPI, PRCAL, MYCM #### [facility] [address] [place] [address] 26222 NRBC Automated 0.3 per 100 WBC High 0.0 [facility] Comment on above: Performed By: #### L ACDS, TROPI, PRCAL, MYCM #### [facility] [address] [place] [address] 48692 Platelet mean volume Entitic volume (Bld) 10.5 fL Normal 8.1-13.5 [facility] Comment on above: Performed By: #### L ACDS, TROPI, PRCAL, MYCM #### [facility] [address] [place] [address] 25039 Platelets #/vol (Bld) 168 10*3/uL Normal 138-453 [facility] Comment on above: Performed By: #### L ACDS, TROPI, PRCAL, MYCM #### [facility] [address] [place] [address] 36301 RBC #/vol (Bld) 3.71 10*6/uL Low 3.95-5.11 [facility] Comment on above: Performed By: #### L ACDS, TROPI, PRCAL, MYCM #### [facility] [address] [place] [address] 42189 WBC #/vol (Bld) 6.0 10*3/uL Normal 3.5-11.3 [facility] Comment on above: Performed By: #### L ACDS, TROPI, PRCAL, MYCM #### [facility] [address] [place] [address] 40335 Auto Diff Performed NOT REPORTED Normal [facility] Comment on above: Performed By: #### L ACDS, TROPI, PRCAL, MYCM #### [facility] [address] [place] [address] 26414 Platelets #/vol (Bld) NOT REPORTED Normal [facility] Comment on above: Performed By: #### L ACDS, TROPI, PRCAL, MYCM #### [facility] [address] [place] [address] 41633 RBC morphology finding Nom (Bld) NOT REPORTED Normal [facility] Comment on above: Performed By: #### L ACDS, TROPI, PRCAL, MYCM #### [facility] [address] [place] [address] 00091 WBC Morphology NOT REPORTED Normal [facility] Comment on above: Performed By: #### L ACDS, TROPI, PRCAL, MYCM #### [facility] [address] [place] [address] 47682 Comp Metabolic Pr/rfx MGon 1 10-19-2017 (cont.) Normal [facility] Comment on above: Result Comment: Aver age GFR for 30-39 years old: 107 mL/min/1.73sq m Chronic Kidney Disease: <60 mL/min/1.73sq m Kidney failure: <15 mL/min/1.73sq m eGFR calculated using average adult body mass. Additional eGFR calculator available at: http://www.[employer]/multiple_crcl_2012.htm Performed By: #### L ACDS, TROPI, PRCAL, MYCM #### [facility] [address] [place] [address] 64338 Albumin mass conc 2.7 g/dL Low 3.5-5.2 [facility] Comment on above: Performed By: #### L ACDS, TROPI, PRCAL, MYCM #### [facility] [address] [place] [address] 68446 Albumin/Globulin mass ratio 0.8 {ratio} Low 1.0-2.5 [facility] Comment on above: Performed By: #### L ACDS, TROPI, PRCAL, MYCM #### [facility] [address] [place] [address] 98344 Alkaline Phos 78 U/L Normal 35-104 [facility] Comment on above: Performed By: #### L ACDS, TROPI, PRCAL, MYCM #### [facility] [address] [place] [address] 06971 ALT enzyme act/vol 16 U/L Normal 5-33 [facility] Comment on above: Performed By: #### L ACDS, TROPI, PRCAL, MYCM #### [facility] [address] [place] [address] 58261 Anion gap molar conc 10 mmol/L Normal 9-17 [facility] Comment on above: Performed By: #### L ACDS, TROPI, PRCAL, MYCM #### [facility] [address] [place] [address] 29014 AST enzyme act/vol 16 U/L Normal <32 [facility] Comment on above: Performed By: #### L ACDS, TROPI, PRCAL, MYCM #### [facility] [address] [place] [address] 53264 Bilirubin Ql (U) 0.21 mg/dL Low 0.3-1.2 [facility] Comment on above: Performed By: #### L ACDS, TROPI, PRCAL, MYCM #### [facility] [address] [place] [address] 61508 Calcium mass conc 8.5 mg/dL Low 8.6-10.4 [facility] Comment on above: Performed By: #### L ACDS, TROPI, PRCAL, MYCM #### [facility] [address] [place] [address] 01206 Chloride molar conc 103 mmol/L Normal 98-107 [facility] Comment on above: Performed By: #### L ACDS, TROPI, PRCAL, MYCM #### [facility] [address] [place] [address] 13993 CO2 molar conc 24 mmol/L Normal 20-31 [facility] Comment on above: Performed By: #### L ACDS, TROPI, PRCAL, MYCM #### [facility] [address] [place] [address] 41936 Creatinine mass conc 0.88 mg/dL Normal 0.50-0.90 [facility] Comment on above: Performed By: #### L ACDS, TROPI, PRCAL, MYCM #### [facility] [address] [place] [address] 76890 GFR, Amer >60 Normal >60 [facility] Comment on above: Performed By: #### L ACDS, TROPI, PRCAL, MYCM #### [facility] [address] [place] [address] [phone] GFR,non Amer >60 Normal >60 [facility] Comment on above: Performed By: #### L ACDS, TROPI, PRCAL, MYCM #### [facility] [address] [place] [address] 93575 Glucose mass conc 104 mg/dL High 70-99 [facility] Comment on above: Performed By: #### L ACDS, TROPI, PRCAL, MYCM #### [facility] [address] [place] [address] 42335 Potassium molar conc 4.0 mmol/L Normal 3.7-5.3 [facility] Comment on above: Performed By: #### L ACDS, TROPI, PRCAL, MYCM #### [facility] [address] [place] [address] 63880 Protein mass conc 6.3 g/dL Low 6.4-8.3 [facility] Comment on above: Performed By: #### L ACDS, TROPI, PRCAL, MYCM #### [facility] [address] [place] [address] 70951 Sodium molar conc 137 mmol/L Normal 135-144 [facility] Comment on above: Performed By: #### L ACDS, TROPI, PRCAL, MYCM #### [facility] [address] [place] [address] 19626 Urea nitrogen mass conc 16 mg/dL Normal 6-20 [facility] Comment on above: Performed By: #### L ACDS, TROPI, PRCAL, MYCM #### [facility] [address] [place] [address] 87202 BUN/CRE Ratio NOT REPORTED Normal 9-20 [facility] Comment on above: Performed By: #### L ACDS, TROPI, PRCAL, MYCM #### [facility] [address] [place] [address] 20746 Staging: NOT REPORTED Normal [facility] Comment on above: Performed By: #### L ACDS, TROPI, PRCAL, MYCM #### [facility] [address] [place] [address] 65850 Cult, Bloodon 11-15-2018 Cult, Blood Specimen Description .BLOOD Special Requests L HAND 6ML Culture POSITIVE BLOOD CULTURE, RN NOTIFIED: ELMER GilmarLori ON 08/17/18 AT 1107 DIRECT GRAM STAIN FROM BOTTLE: GRAM POSITIVE COCCI IN CLUSTERS ID by JORDONFISH: STAPHYLOCOCCUS AUREUS METHICILLIN RESISTANT STAPHYLOCOCCUS AUREUS Report [...] Trimethoprim/Sulfa <=10 SUSCEPTIBLE Vancomycin 1 SUSCEPTIBLE Normal [facility] Comment on above: Performed By: #### L ACDS, TROPI, PRCAL, MYCM #### [facility] [place], [place] [id number] MRI CERVICAL SPINE W WO CONT RASTon [...] Bo Rodrigues MD 08/19/18 Final result Normal [facility] MRI LUMBAR SPINE W WO CONTRA [...] Bo Rodrigues MD 08/19/18 Final result Normal [facility] MRI THORACIC SPINE W WO CONT [...] Bo Rodrigues MD 08/19/18 Final result Normal [facility] Magnesiumon 08-19-2018 Magnesium mass conc 2.3 mg/dL Normal 1.6-2.6 [facility] Comment on above: Performed By: #### L ACDS, TROPI, PRCAL, MYCM #### [facility] [place] [address] Procalcitoninon 08-19-2018 Protein mass conc 0.57 ng/mL High <0.09 [facility] Comment on above: Result [...] entered into the Change in Procalcitonin Calculator (www.uvvcsi-grf-qsickdravz.com) to determine the patient's Mortality Risk Prognosis Performed By: #### L ACDS, TROPI, PRCAL, MYCM #### [place] [address] CBC with Diffon 08-18-2018 Abs. Basophil <0.03 Normal 0.00-0.20 [facility] Comment on above: Performed By: #### L ACDS, TROPI, PRCAL, MYCM #### [place] [address] Abs.Imm.Granulocyte 0.28 k/uL Normal 0.00-0.30 [facility] Comment on above: Performed By: #### L ACDS, TROPI, PRCAL, MYCM #### [place] [address] Abs.Neutrophil (Seg) 3.23 k/uL Normal 1.50-8.10 [facility] Comment on above: Performed By: #### L ACDS, TROPI, PRCAL, MYCM #### [address] [address] Basophils/100 WBC (Bld) 0 % Normal 0-2 [facility] Comment on above: Performed By: #### L ACDS, TROPI, PRCAL, MYCM #### [address] [address] Eosinophils #/vol (Bld) 0.15 10*3/uL Normal 0.00-0.44 [facility] Comment on above: Performed By: #### L ACDS, TROPI, PRCAL, MYCM #### [address] [address] Eosinophils/100 WBC (Bld) 3 % Normal 1-4 [facility] Comment on above: Performed By: #### L ACDS, TROPI, PRCAL, MYCM #### [address] [address] Erythrocyte distribution width Ratio (RBC) 14.7 % High 11.8-14.4 [facility] Comment on above: Performed By: #### L ACDS, TROPI, PRCAL, MYCM #### [address] [address]70 Hematocrit Volume Fraction (Bld) 32.7 % Low 36.3-47.1 [facility] Comment on above: Performed By: #### L ACDS, TROPI, PRCAL, MYCM #### [address] [address]48 Hemoglobin mass conc (Bld) 10.1 g/dL Low 11.9-15.1 [facility] Comment on above: Performed By: #### L ACDS, TROPI, PRCAL, MYCM #### [address] [address] Immature granulocytes #/vol (Bld) 5 % High 0 [facility] Comment on above: Performed By: #### L ACDS, TROPI, PRCAL, MYCM #### [address] [address] Lymphocytes #/vol (Bld) 1.58 10*3/uL Normal 1.10-3.70 [facility] Comment on above: Performed By: #### L ACDS, TROPI, PRCAL, MYCM #### [address] [address] Lymphocytes/100 WBC (Bld) 28 % Normal 24-43 [facility] Comment on above: Performed By: #### L ACDS, TROPI, PRCAL, MYCM #### [address] [address] MCH Entitic mass (RBC) 28.2 pg Normal 25.2-33.5 [facility] Comment on above: Performed By: #### L ACDS, TROPI, PRCAL, MYCM #### [address] [address] MCHC mass conc (RBC) 30.9 g/dL Normal 28.4-34.8 [facility] Comment on above: Performed By: #### L ACDS, TROPI, PRCAL, MYCM #### [address] [address] MCV Entitic volume (RBC) 91.3 fL Normal 82.6-102.9 [facility] Comment on above: Performed By: #### L ACDS, TROPI, PRCAL, MYCM #### [address] [address] Monocytes #/vol (Bld) 0.47 10*3/uL Normal 0.10-1.20 [facility] Comment on above: Performed By: #### L ACDS, TROPI, PRCAL, MYCM #### [address] [address]220[address] Monocytes/100 WBC (Bld) 8 % Normal 3-12 [facility] Comment on above: Performed By: #### L ACDS, TROPI, PRCAL, MYCM #### [address] [address] Neutrophil (Seg) 56 % Normal 36-65 [facility] Comment on above: Performed By: #### L ACDS, TROPI, PRCAL, MYCM #### [address] [address] NRBC Automated 0.0 per 100 WBC Normal 0.0 [facility] Comment on above: Performed By: #### L ACDS, TROPI, PRCAL, MYCM #### [address] [address] Platelet mean volume Entitic volume (Bld) 11.4 fL Normal 8.1-13.5 [facility] Comment on above: Performed By: #### L ACDS, TROPI, PRCAL, MYCM #### [address] [address] Platelets #/vol (Bld) 153 10*3/uL Normal 138-453 [facility] Comment on above: Performed By: #### L ACDS, TROPI, PRCAL, MYCM #### [address] [address] RBC #/vol (Bld) 3.58 10*6/uL Low 3.95-5.11 [facility] Comment on above: Performed By: #### L ACDS, TROPI, PRCAL, MYCM #### [address] [address] RBC morphology finding Nom (Bld) ANISOCYTOSIS PRESENT Normal [facility] Comment on above: Performed By: #### L ACDS, TROPI, PRCAL, MYCM #### [address] [address] WBC #/vol (Bld) 5.7 10*3/uL Normal 3.5-11.3 [facility] Comment on above: Performed By: #### L ACDS, TROPI, PRCAL, MYCM #### [facility] [address] [place] [address] 29592 Auto Diff Performed NOT REPORTED Normal [facility] Comment on above: Performed By: #### L ACDS, TROPI, PRCAL, MYCM #### [address] [address] Platelets #/vol (Bld) NOT REPORTED Normal [facility] Comment on above: Performed By: #### L ACDS, TROPI, PRCAL, MYCM #### [facility] [place] [address] WBC Morphology NOT REPORTED Normal [facility] Comment on above: Performed By: #### L ACDS, TROPI, PRCAL, MYCM #### [facility] [address] [place] [address] 60596 Comp Metabolic Pr/rfx MGon 1 10-18-2017 (cont.) Normal [facility] Comment on above: Result Comment: Aver age GFR for 30-39 years old: 107 mL/min/1.73sq m Chronic Kidney Disease: <60 mL/min/1.73sq m Kidney failure: <15 mL/min/1.73sq m eGFR calculated using average adult body mass. Additional eGFR calculator available at: http://www.[employer]/multiple_crcl_2012.htm Performed By: #### L ACDS, TROPI, PRCAL, MYCM #### [facility] [address] [place] [address] 61935 Albumin mass conc 2.7 g/dL Low 3.5-5.2 [facility] Comment on above: Performed By: #### L ACDS, TROPI, PRCAL, MYCM #### [facility] [address] [place] [address] 86031 Albumin/Globulin mass ratio 0.8 {ratio} Low 1.0-2.5 [facility] Comment on above: Performed By: #### L ACDS, TROPI, PRCAL, MYCM #### [facility] [address] [place] [address] 47237 Alkaline Phos 82 U/L Normal 35-104 [facility] Comment on above: Performed By: #### L ACDS, TROPI, PRCAL, MYCM #### [facility] [address] [place] [address] 23463 ALT enzyme act/vol 19 U/L Normal 5-33 [facility] Comment on above: Performed By: #### L ACDS, TROPI, PRCAL, MYCM #### [facility] [address] [place] [address] 90083 Anion gap molar conc 8 mmol/L Low 9-17 [facility] Comment on above: Performed By: #### L ACDS, TROPI, PRCAL, MYCM #### [facility] [address] [place] [address] 77613 AST enzyme act/vol 17 U/L Normal <32 [facility] Comment on above: Performed By: #### L ACDS, TROPI, PRCAL, MYCM #### [facility] [address] [place] [address] 76576 Bilirubin Ql (U) 0.24 mg/dL Low 0.3-1.2 [facility] Comment on above: Performed By: #### L ACDS, TROPI, PRCAL, MYCM #### [facility] [address] [place] [address] 25152 Calcium mass conc 8.2 mg/dL Low 8.6-10.4 [facility] Comment on above: Performed By: #### L ACDS, TROPI, PRCAL, MYCM #### [facility] [address] [place] [address] 24959 Chloride molar conc 103 mmol/L Normal 98-107 [facility] Comment on above: Performed By: #### L ACDS, TROPI, PRCAL, MYCM #### [facility] [address] [place] [address] 24489 CO2 molar conc 25 mmol/L Normal 20-31 [facility] Comment on above: Performed By: #### L ACDS, TROPI, PRCAL, MYCM #### [facility] [address] [place] [address] 88507 Creatinine mass conc 0.94 mg/dL High 0.50-0.90 [facility] Comment on above: Performed By: #### L ACDS, TROPI, PRCAL, MYCM #### [facility] [address] [place] [address] 18812 GFR, Amer >60 Normal >60 [facility] Comment on above: Performed By: #### L ACDS, TROPI, PRCAL, MYCM #### [facility] [address] [place] [address] 19002 GFR,non Amer >60 Normal >60 [facility] Comment on above: Performed By: #### L ACDS, TROPI, PRCAL, MYCM #### [facility] [address] [place] [address] 53399 Glucose mass conc 107 mg/dL High 70-99 [facility] Comment on above: Performed By: #### L ACDS, TROPI, PRCAL, MYCM #### [facility] [address] [place] [address] 81770 Potassium molar conc 4.1 mmol/L Normal 3.7-5.3 [facility] Comment on above: Performed By: #### L ACDS, TROPI, PRCAL, MYCM #### [facility] [address] [place] [address] 34840 Protein mass conc 6.2 g/dL Low 6.4-8.3 [facility] Comment on above: Performed By: #### L ACDS, TROPI, PRCAL, MYCM #### [facility] [address] [place] [address] 61066 Sodium molar conc 136 mmol/L Normal 135-144 [facility] Comment on above: Performed By: #### L ACDS, TROPI, PRCAL, MYCM #### [facility] [address] [place] [address] 69408 Urea nitrogen mass conc 14 mg/dL Normal 6-20 [facility] Comment on above: Performed By: #### L ACDS, TROPI, PRCAL, MYCM #### [facility] [address] [place] [address] 74750 BUN/CRE Ratio NOT REPORTED Normal 06-24 [facility] Comment on above: Performed By: #### L ACDS, TROPI, PRCAL, MYCM #### [facility] [address] [place] [address] 00092 Staging: NOT REPORTED Normal [facility] Comment on above: Performed By: #### L ACDS, TROPI, PRCAL, MYCM #### [facility] [address] [place] [address] 27341 Magnesiumon 08-18-2018 Magnesium mass conc 2.3 mg/dL Normal 1.6-2.6 [facility] Comment on above: Performed By: #### L ACDS, TROPI, PRCAL, MYCM #### [facility] [address] [place] [address] 59384 Vancomycin Troughon 08-18-20 18 Vancomycin Trough 14.7 ug/mL Normal 10.0-20.0 [facility] Comment on above: Result Comment: High er trough serum vancomycin concentrations of 15-20 ug/mL are recommended for complicated infections such as bacteremia, endocarditis, osteomyelitis, meningitis, and hospital acquired pneumonia. Performed By: #### L ACDS, TROPI, PRCAL, MYCM #### [facility] [address] [place] [address] 90397 Date last dose, NOT REPORTED Normal [facility] Comment on above: Performed By: #### L ACDS, TROPI, PRCAL, MYCM #### [facility] [address] [place] [address] 47388 Dose amount, NOT REPORTED Normal [facility] Comment on above: Performed By: #### L ACDS, TROPI, PRCAL, MYCM #### [facility] [address] [place] [address] 72291 Time last dose, NOT REPORTED Normal [facility] Comment on above: Performed By: #### L ACDS, TROPI, PRCAL, MYCM #### [facility] [address] [place] [address] 03620 C-Reactive Proteinon 018 CRP mass conc 188.1 mg/L High 0.0-5.0 [facility] Comment on above: Performed By: #### L ACDS, TROPI, PRCAL, MYCM #### [facility] [address] [place] [address] 28206 CBC with Diffon 08-17-2018 Abs. Basophil 0.00 k/uL Normal 0.0-0.2 [facility] Comment on above: Performed By: #### L ACDS, TROPI, PRCAL, MYCM #### [facility] [address] [place] [address] 35573 Abs.Imm.Granulocyte 0.13 k/uL Normal 0.00-0.30 [facility] Comment on above: Performed By: #### L ACDS, TROPI, PRCAL, MYCM #### [facility] [address] [place] [address] 61913 Abs.Neutrophil (Seg) 4.35 k/uL Normal 1.8-7.7 [facility] Comment on above: Performed By: #### L ACDS, TROPI, PRCAL, MYCM #### [facility] [address] [place] [address] 92926 Basophils/100 WBC (Bld) 0 % Normal 0-2 [facility] Comment on above: Performed By: #### L ACDS, TROPI, PRCAL, MYCM #### [facility] [address] [place] [address] 98547 Eosinophils #/vol (Bld) 0.06 10*3/uL Normal 0.0-0.4 [facility] Comment on above: Performed By: #### L ACDS, TROPI, PRCAL, MYCM #### [address] [address] Eosinophils/100 WBC (Bld) 1 % Normal 1-4 [facility] Comment on above: Performed By: #### L ACDS, TROPI, PRCAL, MYCM #### [address] [address] Immature granulocytes #/vol (Bld) 2 % High 0 [facility] Comment on above: Performed By: #### L ACDS, TROPI, PRCAL, MYCM #### [address] [address] Lymphocytes #/vol (Bld) 1.32 10*3/uL Normal 1.0-4.8 [facility] Comment on above: Performed By: #### L ACDS, TROPI, PRCAL, MYCM #### [address] [address] Lymphocytes/100 WBC (Bld) 21 % Low 24-44 [facility] Comment on above: Performed By: #### L ACDS, TROPI, PRCAL, MYCM #### [address] [address] Monocytes #/vol (Bld) 0.44 10*3/uL Normal 0.1-0.8 [facility] Comment on above: Performed By: #### L ACDS, TROPI, PRCAL, MYCM #### [address] [address] Monocytes/100 WBC (Bld) 7 % Normal 1-7 [facility] Comment on above: Performed By: #### L ACDS, TROPI, PRCAL, MYCM #### [address] [address] Morphology Interp Rehan (Bld) ANISOCYTOSIS PRESENT Normal [facility] Comment on above: Result Comment: INCR EASED BANDS PRESENT 1+ TEARDROPS Performed By: #### L ACDS, TROPI, PRCAL, MYCM #### [address] [address] Neutrophil (Seg) 69 % High 36-66 [facility] Comment on above: Performed By: #### L ACDS, TROPI, PRCAL, MYCM #### [address] [address] Erythrocyte distribution width Ratio (RBC) 14.8 % High 11.8-14.4 [facility] Comment on above: Performed By: #### L ACDS, TROPI, PRCAL, MYCM #### [address] [address] Hematocrit Volume Fraction (Bld) 33.3 % Low 36.3-47.1 [facility] Comment on above: Performed By: #### L ACDS, TROPI, PRCAL, MYCM #### [facility] [address] [place] [address] 87634 Hemoglobin mass conc (Bld) 10.2 g/dL Low 11.9-15.1 [facility] Comment on above: Performed By: #### L ACDS, TROPI, PRCAL, MYCM #### [facility] [address] [place] [address] 59959 MCH Entitic mass (RBC) 28.3 pg Normal 25.2-33.5 [facility] Comment on above: Performed By: #### L ACDS, TROPI, PRCAL, MYCM #### [facility] [address] [place] [address] 40580 MCHC mass conc (RBC) 30.6 g/dL Normal 28.4-34.8 [facility] Comment on above: Performed By: #### L ACDS, TROPI, PRCAL, MYCM #### [address] [address] MCV Entitic volume (RBC) 92.2 fL Normal 82.6-102.9 [facility] Comment on above: Performed By: #### L ACDS, TROPI, PRCAL, MYCM #### [address] [address] NRBC Automated 0.0 per 100 WBC Normal 0.0 [facility] Comment on above: Performed By: #### L ACDS, TROPI, PRCAL, MYCM #### [address] [address] Platelet mean volume Entitic volume (Bld) 11.5 fL Normal 8.1-13.5 [facility] Comment on above: Performed By: #### L ACDS, TROPI, PRCAL, MYCM #### [address] [address] Platelets #/vol (Bld) 149 10*3/uL Normal 138-453 [facility] Comment on above: Performed By: #### L ACDS, TROPI, PRCAL, MYCM #### [address] [address] RBC #/vol (Bld) 3.61 10*6/uL Low 3.95-5.11 [facility] Comment on above: Performed By: #### L ACDS, TROPI, PRCAL, MYCM #### [address] [address] WBC #/vol (Bld) 6.3 10*3/uL Normal 3.5-11.3 [facility] Comment on above: Performed By: #### L ACDS, TROPI, PRCAL, MYCM #### [facility] [place] [address] Auto Diff Performed NOT REPORTED Normal [facility] Comment on above: Performed By: #### L ACDS, TROPI, PRCAL, MYCM #### [facility] [address] [place] [address] 70166 Platelets #/vol (Bld) NOT REPORTED Normal [facility] Comment on above: Performed By: #### L ACDS, TROPI, PRCAL, MYCM #### [facility] [address] [place] [address] 10227 RBC morphology finding Nom (Bld) NOT REPORTED Normal [facility] Comment on above: Performed By: #### L ACDS, TROPI, PRCAL, MYCM #### [facility] [address] [place] [address] 65080 WBC Morphology NOT REPORTED Normal [facility] Comment on above: Performed By: #### L ACDS, TROPI, PRCAL, MYCM #### [facility] [address] [place] [address] 71389 Comp Metabolic Pr/rfx MGon 1 10-17-2017 (cont.) Normal [facility] Comment on above: Result Comment: Aver age GFR for 30-39 years old: 107 mL/min/1.73sq m Chronic Kidney Disease: <60 mL/min/1.73sq m Kidney failure: <15 mL/min/1.73sq m eGFR calculated using average adult body mass. Additional eGFR calculator available at: http://www.[employer]/multiple_crcl_2012.htm Performed By: #### L ACDS, TROPI, PRCAL, MYCM #### [facility] [address] [place] [address] 87099 Albumin mass conc 2.4 g/dL Low 3.5-5.2 [facility] Comment on above: Performed By: #### L ACDS, TROPI, PRCAL, MYCM #### [facility] [address] [place] [address] 41333 Albumin/Globulin mass ratio 0.7 {ratio} Low 1.0-2.5 [facility] Comment on above: Performed By: #### L ACDS, TROPI, PRCAL, MYCM #### [facility] [address] [place] [address] 70184 Alkaline Phos 76 U/L Normal 35-104 [facility] Comment on above: Performed By: #### L ACDS, TROPI, PRCAL, MYCM #### [facility] [address] [place] [address] 51319 ALT enzyme act/vol 25 U/L Normal 5-33 [facility] Comment on above: Performed By: #### L ACDS, TROPI, PRCAL, MYCM #### [facility] [address] [place] [address] 50188 Anion gap molar conc 8 mmol/L Low 9-17 [facility] Comment on above: Performed By: #### L ACDS, TROPI, PRCAL, MYCM #### [facility] [address] [place] [address] 92813 AST enzyme act/vol 26 U/L Normal <32 [facility] Comment on above: Performed By: #### L ACDS, TROPI, PRCAL, MYCM #### [facility] [address] [place] [address] 46034 Bilirubin Ql (U) 0.34 mg/dL Normal 0.3-1.2 [facility] Comment on above: Performed By: #### L ACDS, TROPI, PRCAL, MYCM #### [facility] [address] [place] [address] 75761 Calcium mass conc 7.8 mg/dL Low 8.6-10.4 [facility] Comment on above: Performed By: #### L ACDS, TROPI, PRCAL, MYCM #### [facility] [address] [place] [address] 88225 Chloride molar conc 99 mmol/L Normal 98-107 [facility] Comment on above: Performed By: #### L ACDS, TROPI, PRCAL, MYCM #### [facility] [address] [place] [address] 79353 CO2 molar conc 23 mmol/L Normal 20-31 [facility] Comment on above: Performed By: #### L ACDS, TROPI, PRCAL, MYCM #### [facility] [address] [place] [address] 21340 Creatinine mass conc 1.04 mg/dL High 0.50-0.90 [facility] Comment on above: Performed By: #### L ACDS, TROPI, PRCAL, MYCM #### [facility] [address] [place] [address] 65239 GFR, Amer >60 Normal >60 [facility] Comment on above: Performed By: #### L ACDS, TROPI, PRCAL, MYCM #### [facility] [address] [place] [address] 50395 GFR,non Amer 59 mL/min Low >60 [facility] Comment on above: Performed By: #### L ACDS, TROPI, PRCAL, MYCM #### [facility] [address] [place] [address] 57357 Glucose mass conc 109 mg/dL High 70-99 [facility] Comment on above: Performed By: #### L ACDS, TROPI, PRCAL, MYCM #### [facility] [address] [place] [address] 63656 Potassium molar conc 3.8 mmol/L Normal 3.7-5.3 [facility] Comment on above: Performed By: #### L ACDS, TROPI, PRCAL, MYCM #### [facility] [address] [place] [address] 22851 Protein mass conc 5.8 g/dL Low 6.4-8.3 [facility] Comment on above: Performed By: #### L ACDS, TROPI, PRCAL, MYCM #### [facility] [facility] [address] [place] [address] [id number] Sodium molar conc 130 mmol/L Low 135-144 [facility] Comment on above: Performed By: #### L ACDS, TROPI, PRCAL, MYCM #### [facility] [address] [place] [address] 13090 Urea nitrogen mass conc 15 mg/dL Normal 6-20 [facility] Comment on above: Performed By: #### L ACDS, TROPI, PRCAL, MYCM #### [facility] [address] [place] [address] 88761 BUN/CRE Ratio NOT REPORTED Normal - [facility] Comment on above: Performed By: #### L ACDS, TROPI, PRCAL, MYCM #### [facility] [address] [place] [address] 37947 Staging: NOT REPORTED Normal [facility] Comment on above: Performed By: #### L ACDS, TROPI, PRCAL, MYCM #### [facility] [address] [place] [address] 84994 Magnesiumon 08-17-2018 Magnesium mass conc 2.2 mg/dL Normal 1.6-2.6 [facility] Comment on above: Performed By: #### L ACDS, TROPI, PRCAL, MYCM #### [facility] [address] [place] [address] 73704 Procalcitoninon 08-17-2018 Protein mass conc 1.48 ng/mL High <0.09 [facility] Comment on above: Result [...] entered into the Change in Procalcitonin Calculator (www.npuxnf-hov-nkvnpzftfq.[employer]) to determine the patient's Mortality Risk Prognosis Performed By: #### L ACDS, TROPI, PRCAL, MYCM #### [facility] [address] [place] [address] 52203 Sedimentation Rateon 08-17- 018 Sedimentation Rate 97 mm High 0-20 [facility] Comment on above: Performed By: #### L ACDS, TROPI, PRCAL, MYCM #### [facility] [address] [place] [address] 11379 CBC with Diffon 08-16-2018 Abs. Basophil 0.00 k/uL Normal 0.00-0.20 [facility] Comment on above: Performed By: #### L ACDS, TROPI, PRCAL, MYCM #### [facility] [address] [place] [address] 62091 Abs.Imm.Granulocyte 0.11 k/uL Normal 0.00-0.30 [facility] Comment on above: Performed By: #### L ACDS, TROPI, PRCAL, MYCM #### [facility] [address] [place] [address] 77311 Abs.Neutrophil (Seg) 4.60 k/uL Normal 1.50-8.10 [facility] Comment on above: Performed By: #### L ACDS, TROPI, PRCAL, MYCM #### [address] [address] Basophils/100 WBC (Bld) 0 % Normal 0-2 [facility] Comment on above: Performed By: #### L ACDS, TROPI, PRCAL, MYCM #### [address] [address] Eosinophils #/vol (Bld) 0.00 10*3/uL Normal 0.00-0.44 [facility] Comment on above: Performed By: #### L ACDS, TROPI, PRCAL, MYCM #### [address] [address] Eosinophils/100 WBC (Bld) 0 % Low 1-4 [facility] Comment on above: Performed By: #### L ACDS, TROPI, PRCAL, MYCM #### [address] [address] Immature granulocytes #/vol (Bld) 2 % High 0 [facility] Comment on above: Performed By: #### L ACDS, TROPI, PRCAL, MYCM #### [address] [address] Lymphocytes #/vol (Bld) 0.67 10*3/uL Low 1.10-3.70 [facility] Comment on above: Performed By: #### L ACDS, TROPI, PRCAL, MYCM #### [address] [address] Lymphocytes/100 WBC (Bld) 12 % Low 24-43 [facility] Comment on above: Performed By: #### L ACDS, TROPI, PRCAL, MYCM #### [address] [address] Monocytes #/vol (Bld) 0.22 10*3/uL Normal 0.10-1.20 [facility] Comment on above: Performed By: #### L ACDS, TROPI, PRCAL, MYCM #### [facility] [address] [place] [address] 54586 Monocytes/100 WBC (Bld) 4 % Normal 3-12 [facility] Comment on above: Performed By: #### L ACDS, TROPI, PRCAL, MYCM #### [facility] [address] [place] [address] 57952 Morphology Interp Rehan (Bld) ANISOCYTOSIS PRESENT Normal [facility] Comment on above: Result Comment: INCR EASED BANDS PRESENT 1+ TEARDROPS Performed By: #### L ACDS, TROPI, PRCAL, MYCM #### [facility] [address] [place] [address] 85441 Neutrophil (Seg) 82 % High 36-65 [facility] Comment on above: Performed By: #### L ACDS, TROPI, PRCAL, MYCM #### [facility] [address] [place] [address] 25343 Erythrocyte distribution width Ratio (RBC) 15.1 % High 11.8-14.4 [facility] Comment on above: Performed By: #### L ACDS, TROPI, PRCAL, MYCM #### [facility] [address] [place] [address] 29352 Hematocrit Volume Fraction (Bld) 34.1 % Low 36.3-47.1 [facility] Comment on above: Performed By: #### L ACDS, TROPI, PRCAL, MYCM #### [facility] [address] [place] [address] 76314 Hemoglobin mass conc (Bld) 10.0 g/dL Low 11.9-15.1 [facility] Comment on above: Performed By: #### L ACDS, TROPI, PRCAL, MYCM #### [address] [address] MCH Entitic mass (RBC) 28.7 pg Normal 25.2-33.5 [facility] Comment on above: Performed By: #### L ACDS, TROPI, PRCAL, MYCM #### [address] [address] MCHC mass conc (RBC) 29.3 g/dL Normal 28.4-34.8 [facility] Comment on above: Performed By: #### L ACDS, TROPI, PRCAL, MYCM #### [address] [address] MCV Entitic volume (RBC) 98.0 fL Normal 82.6-102.9 [facility] Comment on above: Performed By: #### L ACDS, TROPI, PRCAL, MYCM #### [address] [address] NRBC Automated 0.0 per 100 WBC Normal 0.0 [facility] Comment on above: Performed By: #### L ACDS, TROPI, PRCAL, MYCM #### [address] [address] Platelet mean volume Entitic volume (Bld) 11.1 fL Normal 8.1-13.5 [facility] Comment on above: Performed By: #### L ACDS, TROPI, PRCAL, MYCM #### [address] [address] Platelets #/vol (Bld) 119 10*3/uL Low 138-453 [facility] Comment on above: Performed By: #### L ACDS, TROPI, PRCAL, MYCM #### [address] [place] [address] RBC #/vol (Bld) 3.48 10*6/uL Low 3.95-5.11 [facility] Comment on above: Performed By: #### L ACDS, TROPI, PRCAL, MYCM #### [address] [address] WBC #/vol (Bld) 5.6 10*3/uL Normal 3.5-11.3 [facility] Comment on above: Performed By: #### L ACDS, TROPI, PRCAL, MYCM #### [address] [address] Auto Diff Performed NOT REPORTED Normal [facility] Comment on above: Performed By: #### L ACDS, TROPI, PRCAL, MYCM #### [facility] [address] [place] [address] 65257 Platelets #/vol (Bld) NOT REPORTED Normal [facility] Comment on above: Performed By: #### L ACDS, TROPI, PRCAL, MYCM #### [facility] [address] [place] [address] 27858 RBC morphology finding Nom (Bld) NOT REPORTED Normal [facility] Comment on above: Performed By: #### L ACDS, TROPI, PRCAL, MYCM #### [facility] [address] [place] [address] 95806 WBC Morphology NOT REPORTED Normal [facility] Comment on above: Performed By: #### L ACDS, TROPI, PRCAL, MYCM #### [facility] [address] [place] [address] HEAD WO CONTRASTon 2017 CT HEAD [...] Erica Angeles MD 08/16/18 Final result Normal [facility] Calcium, Ionicon 08-16-2018 Calcium mass conc 0.99 mmol/L Low 1.13-1.33 [facility] Comment on above: Performed By: #### L ACDS, TROPI, PRCAL, MYCM #### [facility] [address] [place] [address] [phone] Comp Metabolic Pr/rfx MGon 1 10-16-2017 (cont.) Normal [facility] Comment on above: Result Comment: Aver age GFR for 30-39 years old: 107 mL/min/1.73sq m Chronic Kidney Disease: <60 mL/min/1.73sq m Kidney failure: <15 mL/min/1.73sq m eGFR calculated using average adult body mass. Additional eGFR calculator available at: http://www.[employer].com/multiple_crcl_2012.htm Performed By: #### P T, CMPX, MG, CDP #### [facility] [address] [place] [address] [phone] Albumin mass conc 2.3 g/dL Low 3.5-5.2 [facility] Comment on above: Performed By: #### P T, CMPX, MG, CDP #### [facility] [address] [place] [address] 46050 Albumin/Globulin mass ratio 0.7 {ratio} Low 1.0-2.5 [facility] Comment on above: Performed By: #### P T, CMPX, MG, CDP #### [facility] [address] [place] [address] 53816 Alkaline Phos 67 U/L Normal 35-104 [facility] Comment on above: Performed By: #### P T, CMPX, MG, CDP #### [facility] [address] [place] [address] 64644 ALT enzyme act/vol 33 U/L Normal 5-33 [facility] Comment on above: Performed By: #### P T, CMPX, MG, CDP #### [facility] [address] [place] [address] 22955 Anion gap molar conc 11 mmol/L Normal 9-17 [facility] Comment on above: Performed By: #### P T, CMPX, MG, CDP #### [facility] [address] [place] [address] 26229 AST enzyme act/vol 41 U/L High <32 [facility] Comment on above: Performed By: #### P T, CMPX, MG, CDP #### [facility] [address] [place] [address] 81866 Bilirubin Ql (U) 0.40 mg/dL Normal 0.3-1.2 [facility] Comment on above: Performed By: #### P T, CMPX, MG, CDP #### [facility] [address] [place] [address] 97691 Calcium mass conc 7.3 mg/dL Low 8.6-10.4 [facility] Comment on above: Performed By: #### P T, CMPX, MG, CDP #### [facility] [address] [place] [address] 03001 Chloride molar conc 105 mmol/L Normal 98-107 [facility] Comment on above: Performed By: #### P T, CMPX, MG, CDP #### [facility] [address] [place] [address] 53824 CO2 molar conc 18 mmol/L Low 20-31 [facility] Comment on above: Performed By: #### P T, CMPX, MG, CDP #### [facility] [address] [place] [address] 05898 Creatinine mass conc 1.09 mg/dL High 0.50-0.90 [facility] Comment on above: Performed By: #### P T, CMPX, MG, CDP #### [facility] [address] [place] [address] 15882 GFR, Amer >60 Normal >60 [facility] Comment on above: Performed By: #### P T, CMPX, MG, CDP #### [facility] [address] [place] [address] 61522 GFR,non Amer 56 mL/min Low >60 [facility] Comment on above: Performed By: #### P T, CMPX, MG, CDP #### [facility] [address] [place] [address] 22039 Glucose mass conc 128 mg/dL High 70-99 [facility] Comment on above: Performed By: #### P T, CMPX, MG, CDP #### [facility] [address] [place] [address] 41270 Potassium molar conc 3.6 mmol/L Low 3.7-5.3 [facility] Comment on above: Performed By: #### P T, CMPX, MG, CDP #### [facility] [address] [place] [address] 13090 Protein mass conc 5.5 g/dL Low 6.4-8.3 [facility] Comment on above: Performed By: #### P T, CMPX, MG, CDP #### [facility] [address] [place] [address] 57286 Sodium molar conc 134 mmol/L Low 135-144 [facility] Comment on above: Performed By: #### P T, CMPX, MG, CDP #### [facility] [address] [place] [address] 86832 Urea nitrogen mass conc 17 mg/dL Normal -20 [facility] Comment on above: Performed By: #### P T, CMPX, MG, CDP #### [facility] [address] [place] [address] 03845 BUN/CRE Ratio NOT REPORTED Normal - [facility] Comment on above: Performed By: #### P T, CMPX, MG, CDP #### [facility] [address] [place] [address] 17135 Staging: NOT REPORTED Normal [facility] Comment on above: Performed By: #### P T, CMPX, MG, CDP #### [facility] [address] [place] [address] 88274 Lactic Acid,Whole Blon 08-16 Lactic Acid,Whole Bl 1.2 mmol/L Normal 0.7-2.1 [facility] Comment on above: Performed By: #### L ACDS, TROPI, PRCAL, MYCM #### [facility] [address] [place] [address] 96058 Lactic Acid,Whole Bl 1.2 mmol/L Normal 0.7-2.1 [facility] Comment on above: Performed By: #### L ACWB #### [facility] [address] [place] [address] 65313 Magnesiumon 08-16-2018 Magnesium mass conc 2.0 mg/dL Normal 1.6-2.6 [facility] Comment on above: Performed By: #### L ACDS, TROPI, PRCAL, MYCM #### [facility] [address] [place] [address] 17723 Mycoplasma Ab,IgMon 08-16-20 18 Mycoplasma Ab,IgM 0.22 Normal <0.91 [facility] Comment on above: Result Comment: Reference Range: <=0.90 Negative 0.91-1.09 Equivocal >=1.10 Positive Performed By: #### L ACDS, TROPI, PRCAL, MYCM #### [facility] [address] [place] [address] 53967 PTon 08-16-2018 INR Coag RelTime (PPP) 1.0 {INR} Normal [facility] Comment on above: Result Comment: Therapeutic Range: Moderate Anticoagulant Intensity: INR = 2.0-3.0 High Anticoagulant Intensity: INR = 2.5-3.5 Performed By: #### P T, CMPX, MG, CDP #### [facility] [address] [place] [address] 32216 Prothrombin time (PT) Coag time (PPP) 11.0 s Normal 9.0-12.0 [facility] Comment on above: Performed By: #### P T, CMPX, MG, CDP #### [facility] [address] [place] [address] 84931 Troponinon 08-16-2018 Troponin I.cardiac mass conc Normal [facility] Comment on above: Result Comment: Refe [...] diagnosis. Performed By: #### T ROPI #### [address] [address] Troponin I.cardiac mass conc ng/mL Normal <0.03 [facility] Comment on above: Result Comment: Trop onin T results cannot be compared to Troponin-I results. Performed By: #### T CTI #### [address] [address] XR CHEST (2 VW)on 08-16-2018 XR CHEST [...] Noe Mitchell MD 08/16/18 Final result Normal [facility] Lactate, Sepsison 08-15-2018 Lactic Acid,Sep Wbld 3.5 mmol/L High 0.5-1.9 [facility] Comment on above: Performed By: #### L ACDS, TROPI, PRCAL, MYCM #### [address] [phone] Lactic Acid, Sepsis NOT REPORTED Normal 0.5-1.[address] [facility] Comment on above: Performed By: #### L ACDS, TROPI, PRCAL, MYCM #### [address] [phone] Legionella Ag, Uron 08-15-20 Legionella Ag, Ur [...] this test. Report Status FINAL 08/15/2018 Normal [facility] Comment on above: Performed By: #### U LAG #### [address] [phone] Procalcitoninon 08-15-2018 Protein mass conc 3.39 ng/mL High <0.09 [facility] Comment on above: Result [...] entered into the Change in Procalcitonin Calculator (www.okvmfj-jag-wwmjahhjgs.com) to determine the patient's Mortality Risk Prognosis Performed By: #### L ACDS, TROPI, PRCAL, MYCM #### [facility] [address] [place] [address] [phone] Strep pneum Ag,CSF/Uron 08-05 Strep pneum Ag,CSF/Ur Specimen Descripti on .CLEAN CATCH URINE Special Requests NOT REPORTED Direct Exam NEGATIVE: Strep pneumoniae antigen not detected Report Status FINAL 08/15/2018 Normal [facility] Comment on above: Performed By: #### S PAG #### [facility] [address] [place] [address] [phone] Troponinon 08-15-2018 Troponin I.cardiac mass conc ng/mL Normal <0.03 [facility] Comment on above: Result Comment: Trop onin T results cannot be compared to Troponin-I results. Performed By: #### L ACDS, TROPI, PRCAL, MYCM #### [facility] [address] [place] [address] [place] [phone] Troponin I.cardiac mass conc Normal [facility] Comment on above: Result Comment: Refe [...] ACDS, TROPI, PRCAL, MYCM #### [facility] [address] [place] [address] Urinalysison 11-18-2017 Bilirubin, Urine Negative Invalid Interpretation Code NEG;NEGATIVE [facility] Blood, Urine Moderate Abnormal NEG;NEGATIVE [facility] Interpretation and review of laboratory results Abnormal Invalid Interpretation Code [facility] Nitrite, Urine Negative Invalid Interpretation Code NEG;NEGATIVE [facility] Protein, Urine Negative Invalid Interpretation Code NEG;NEGATIVE mg/dL [facility] RBCs, Urine 1 /HPF Invalid Interpretation Code 0 - 5 [facility] Squamous Epithelial < 1 Invalid Interpretation Code 0 - 40 /HPF [facility] Urine, bacteria in sediment Rare Invalid Interpretation Code NS;RARE /HPF [facility] Urine, character Hazy Invalid Interpretation Code [facility] Urine, color Yellow Invalid Interpretation Code [facility] Urine, glucose presence Negative Invalid Interpretation Code NEG;NEGATIVE mg/dL [facility] Urine, ketones presence Negative Invalid Interpretation Code NEG;NEGATIVE mg/dL [facility] Urine, leukocyte esterase presence Small Abnormal Negative [facility] Urine, pH 6.0 [pH] Invalid Interpretation Code 4.5 - 8.0 [facility] Urine, specific gravity 1.014 1 Invalid Interpretation Code 1.003 - 1.029 [facility] Urobilinogen, Urine < 2.0 Invalid Interpretation Code <2 mg/dL [facility] WBCs, Urine 6 /HPF High 0 - 5 [facility] CBC and Differentialon 11-17 Basophils 0.7 % Invalid Interpretation Code [facility] Basophils 0.1 K/mcL Invalid Interpretation Code 0 - 0.2 [facility] Eosinophils 0.2 K/mcL Invalid Interpretation Code 0 - 0.5 [facility] Erythrocytes (RBC) 3.97 M/mcL Invalid Interpretation Code 3.7 - 5.0 [facility] Hematocrit (HCT) 35.7 % Invalid Interpretation Code 34.4 - 44.8 % [facility] Hemoglobin (HGB) 12.2 g/dL Invalid Interpretation Code 11.6 - 15.4 g/dL [facility] Interpretation and review of laboratory results Abnormal Invalid Interpretation Code [facility] Lymphocytes 2.1 K/mcL Invalid Interpretation Code 1.0 - 3.7 [facility] MCH 30.6 pg Invalid Interpretation Code 27.9 - 33.9 pg [facility] MCHC 34.0 g/dL Invalid Interpretation Code 33.1 - 35.1 g/dL [facility] MCV 89.8 fL Invalid Interpretation Code 82.6 - 98.9 [facility] Monocytes 0.6 K/mcL Invalid Interpretation Code 0.1 - 0.6 [facility] Neutrophils 6.6 K/mcL Invalid Interpretation Code 1.2 - 6.9 [facility] Platelet mean volume (PMV) 8.6 fL Invalid Interpretation Code 7.0 - 10.6 [facility] Platelets 196 K/mcL Invalid Interpretation Code 162 - 402 [facility] RDW-CA 15.0 % High 10 - 14.4 % [facility] Segmented Neut 69.6 % Invalid Interpretation Code [facility] T8 suppressor/100 cells 1.8 10*3/uL Invalid Interpretation Code [facility] T8 suppressor/100 cells 21.8 10*3/uL Invalid Interpretation Code [facility] T8 suppressor/100 cells 6.1 10*3/uL Invalid Interpretation Code [facility] WBC (Leukocytes) 9.5 K/mcL Invalid Interpretation Code 3.4 - 10.6 [facility] Comprehensive Metabolic Pane ananda 11-17-2017 Alanine aminotransferase (ALT) 18 U/L Invalid Interpretation Code 14 - 65 U/L [facility] Albumin 3.1 g/dL Low 3.2 - 5.2 g/dL [facility] Alkaline phosphatase (ALP) 78 U/L Invalid Interpretation Code 40 - 140 U/L [facility] Aspartate aminotransferase (AST) 7 U/L Invalid Interpretation Code 0 - 45 U/L [facility] Calcium 8.6 mg/dL Invalid Interpretation Code 8.4 - 10.2 mg/dL [facility] Chloride 106 mmol/L Invalid Interpretation Code 98 - 108 mmol/L [facility] CO2 27 mmol/L Invalid Interpretation Code 21 - 32 mmol/L [facility] Creatinine 1.13 mg/dL High 0.4 - 1.1 mg/dL [facility] eGFR (black) mL/min/{1.73_m2} Invalid Interpretation Code ml/min/1.73sq .m [facility] eGFR (non-black) 54 mL/min/{1.73_m2} Low >60 [facility] Glucose 113 mg/dL High 70 - 99 mg/dL [facility] Interpretation and review of laboratory results Abnormal Invalid Interpretation Code [facility] Potassium 3.7 mmol/L Invalid Interpretation Code 3.5 - 5.1 mmol/L [facility] Protein 6.8 g/dL Invalid Interpretation Code 6 - 8 g/dL [facility] Sodium 140 mmol/L Invalid Interpretation Code 135 - 145 mmol/L [facility] Urea nitrogen 17 mg/dL Invalid Interpretation Code 8 - 25 mg/dL [facility] Urine, bilirubin presence 0.4 mg/dL Invalid Interpretation Code 0.3 - 1.2 mg/dL [facility] Lipaseon 11-17-2017 Lipase 167 U/L Invalid Interpretation Code 73 - 393 U/L [facility] Vital Signs Date Time Vital Sign Value Performing Clinician Yovani mclaughlin 05-24-2025 11:47-0400 Body height 157.5 cm [employer] Work Phone: [facility] 05-24-2025 11:47-0400 Body mass index (BMI) [Ratio] 38.41 kg/m2 [employer] Work Phone: [facility] 05-24-2025 11:47-0400 Body weight 95.25 kg [employer] Work Phone: [facility] 05-24-2025 11:47-0400 Diastolic blood pressure 80 mm[Hg] Jennie Van [employer] Work Phone: [facility] 05-24-2025 11:47-0400 Respiratory rate 18 /min Jennie Van [employer] Work Phone: [facility] 05-24-2025 11:47-0400 SaO2% (BldA) [Mass fraction] 98 % Jennie Van [employer] Work Phone: [facility] 05-24-2025 11:47-0400 Systolic blood pressure 120 mm[Hg] Jennie Van [employer] Work Phone: [facility] 04-20-2025 12:32-0400 Body height 157.5 cm Christopher Bohach DPM Work Phone: [facility] 04-20-2025 12:32-0400 Body mass index (BMI) [Ratio] 38.41 kg/m2 Christopher Bohach DPM Work Phone: [facility] 04-20-2025 12:32-0400 Body weight 95.25 kg Christopher Bohach DPM Work Phone: [facility] 04-20-2025 12:32-0400 Diastolic blood pressure 89 mm[Hg] Christopher Bohach DPM Work Phone: [facility] 04-20-2025 12:32-0400 Heart rate 101 /min Christopher Bohach DPM Work Phone: [facility] 04-20-2025 12:32-0400 Systolic blood pressure 128 mm[Hg] Christopher Bohach DPM Work Phone: [facility] 04-06-2025 16:21-0400 Body height 157.5 cm Christopher Bohach DPM Work Phone: [facility] 04-06-2025 16:21-0400 Body mass index (BMI) [Ratio] 38.41 kg/m2 Christopher Bohach DPM Work Phone: [facility] 04-06-2025 16:21-0400 Body weight 95.25 kg Christpachecoer Bohach DPM Work Phone: [facility] 04-06-2025 16:21-0400 Diastolic blood pressure 80 mm[Hg] Robbin Bohach DPM Work Phone: [facility] 04-06-2025 16:21-0400 Heart rate 89 /min Robbin Bohach DPM Work Phone: [facility] 04-06-2025 16:21-0400 Systolic blood pressure 118 mm[Hg] Mundoer Bohach DPM Work Phone: [facility] 04-04-2025 23:15-0400 Diastolic blood pressure 70 mm[Hg] Severo Goodwin MD Work Phone: [facility] 04-04-2025 23:15-0400 Heart rate 74 /min Severo Goodwin MD Work Phone: [facility] 04-04-2025 23:15-0400 Respiratory rate 16 /min Severo Goodwin MD Work Phone: [facility] 04-04-2025 23:15-0400 SaO2% (BldA) [Mass fraction] 97 % Severo Goodwin MD Work Phone: MENA PRESTIGE [facility] 04-04-2025 23:15-0400 Systolic blood pressure 122 mm[Hg] Severo Goodwin MD Work Phone: [employer] 04-04-2025 21:24-0400 Body height 152.4 cm Severo Goodwin MD Work Phone: [employer] 04-04-2025 21:24-0400 Body mass index (BMI) [Ratio] 41.99 kg/m2 Severo Goodwin MD Work Phone: [employer] 04-04-2025 21:24-0400 Body weight 97.52 kg Severo Goodwin MD Work Phone: [facility] 04-04-2025 21:15-0400 Body temperature 99 [degF] Severo Goodwin MD Work Phone: [facility] 03-14-2025 12:02-0400 Body height 157.5 cm Lynn Umair MELENDREZ Work Phone: [facility] 03-14-2025 12:02-0400 Body mass index (BMI) [Ratio] 38.41 kg/m2 Lynn Beadam MELENDREZ Work Phone: [facility] 03-14-2025 12:02-0400 Body weight 95.25 kg Lynn Umair MELENDREZ Work Phone: [facility] 12-06-2024 13:00-0500 Body height 157.5 cm Lynn Umair MELENDREZ Work Phone: [facility] 12-06-2024 13:00-0500 Body mass index (BMI) [Ratio] 38.41 kg/m2 Lynn Beadam MELENDREZ Work Phone: [facility] 12-06-2024 13:00-0500 Body weight 95.25 kg Lynn Block MD Work Phone: [facility] 11-14-2024 11:31-0500 Body height 157.5 cm Fozia Meng [employer] Work Phone: [facility] 11-14-2024 11:31-0500 Body mass index (BMI) [Ratio] 37.9 kg/m2 Fozia Meng [employer] Work Phone: [facility] 11-14-2024 11:31-0500 Body weight 93.98 kg Fozia Meng [employer] Work Phone: [facility] 11-14-2024 11:31-0500 Diastolic blood pressure 80 mm[Hg] Fozia Meng [employer] Work Phone: [facility] 11-14-2024 11:31-0500 Systolic blood pressure 134 mm[Hg] Fozia Meng [employer] Work Phone: [facility] 10-11-2024 09:42-0500 Body height 157.5 cm Sherman Adair MD Work Phone: [facility] 10-11-2024 09:42-0500 Body mass index (BMI) [Ratio] 38.23 kg/m2 Sherman Adair MD Work Phone: [facility] 10-11-2024 09:42-0500 Body temperature 98.29 [degF] Sherman Adair MD Work Phone: [facility] 10-11-2024 09:42-0500 Body weight 94.8 kg Sherman Adair MD Work Phone: [facility] 09-14-2024 11:30-0500 Body height 157.5 cm Fozia Knutsongel [employer] Work Phone: [facility] 09-14-2024 11:30-0500 Body mass index (BMI) [Ratio] 39.91 kg/m2 Fozia Knutsongel [employer] Work Phone: [facility] 09-14-2024 11:30-0500 Body weight 98.97 kg Fozia Knutsongel [employer] Work Phone: [facility] 09-14-2024 11:30-0500 Diastolic blood pressure 70 mm[Hg] Fozia Lyndanagel [employer] Work Phone: [facility] 09-14-2024 11:30-0500 Systolic blood pressure 140 mm[Hg] Fozia Lyndanagel [employer] Work Phone: [facility] 06-10-2024 10:09-0400 Body height 157.5 cm Tiffanie Casas MD Work Phone: [facility] 06-10-2024 10:09-0400 Body mass index (BMI) [Ratio] 38.96 kg/m2 Tiffanie Casas MD Work Phone: [facility] 06-10-2024 10:09-0400 Body weight 96.62 kg Tiffanie Casas MD Work Phone: [facility] 06-10-2024 10:09-0400 Diastolic blood pressure 84 mm[Hg] Tiffanie Casas MD Work Phone: [facility] 06-10-2024 10:09-0400 Systolic blood pressure 132 mm[Hg] Tiffanie Casas MD Work Phone: [facility] 05-10-2024 14:20-0400 Body height 157.5 cm Cheryl Ginger DO Work Phone: [facility] 05-10-2024 14:20-0400 Body mass index (BMI) [Ratio] 38.41 kg/m2 Cheryl Ginger DO Work Phone: [facility] 05-10-2024 14:20-0400 Body weight 95.25 kg Cheryl Ginger DO Work Phone: [facility] 05-10-2024 14:20-0400 Diastolic blood pressure 74 mm[Hg] Cheryl Ginger DO Work Phone: [facility] 05-10-2024 14:20-0400 Heart rate 83 /min Cheryl Ginger DO Work Phone: [facility] 05-10-2024 14:20-0400 SaO2% (BldA) [Mass fraction] 97 % Cheryl Ginger DO Work Phone: [facility] 05-10-2024 14:20-0400 Systolic blood pressure 118 mm[Hg] Cheryl Ginger DO Work Phone: [facility] 03-03-2023 14:44-0400 Body temperature 98.49 [degF] MASSIMO Hassmann DPM Work Phone: [facility] 03-03-2023 14:44-0400 Diastolic blood pressure 87 mm[Hg] MASSIMO Moralezmann DPM Work Phone: [facility] 03-03-2023 14:44-0400 Heart rate 94 /min MASSIMO Hassmann DPM Work Phone: [facility] 03-03-2023 14:44-0400 Systolic blood pressure 139 mm[Hg] MASSIMO Shook DPM Work Phone: [facility] 07-02-2022 09:36-0400 Body height 157.5 cm [facility] Work Phone: [facility] 07-02-2022 09:36-0400 Body mass index (BMI) [Ratio] 38.67 kg/m2 [employer] [employer] Work Phone: [facility] 07-02-2022 09:36-0400 Body weight 95.89 kg [employer] [employer] Work Phone: [facility] 09-16-2020 20:53-0500 BMI (Body Mass Index) 39.32 kg/m2 [place] 09-16-2020 20:53-0500 Body Temperature 99.5 [degF] [place] 09-16-2020 20:53-0500 Body weight 97.52 kg [place] 09-16-2020 20:53-0500 BP Diastolic 109 mm[Hg] [place] 09-16-2020 20:53-0500 BP Systolic 189 mm[Hg] [place] 09-16-2020 20:53-0500 Height 157.5 cm [place] 09-16-2020 20:53-0500 Pulse (Heart Rate) 99 /min [place] 09-16-2020 20:53-0500 Pulse Oximetry 96 % [place] 09-16-2020 20:53-0500 Respiratory Rate 18 /min [place] Encounters Encounter Date Encounter Type Care Provider Facility Start: 05-24-2025 End: 05-24-2025 Bamboo flowsheet Jennie Van [employer]IONIST Work Phone: [facility] Start: 05-24-2025 End: 05-24-2025 Bamboo flowsheet Jennie Van [employer] RECEPTIONIST Work Phone: [facility] Start: 05-24-2025 End: 05-24-2025 ambulatory JENNIE VAN Not Available Start: 05-24-2025 End: 05-24-2025 Office outpatient visit 25 minutes Jennie Van [employer] RECEPTIONIST Work Phone: [facility] Comment on above: BUCK (obstructive sle ep apnea) (Primary Dx); Cervical paraspinal muscle spasm; Cervical radiculopathy Start: 05-23-2025 End: 05-23-2025 Telephone encounter Lynn Block MD Work Phone: [facility] Neurology 111 Start: 05-15-2025 End: 05-15-2025 ambulatory FELIPE BACK [facility] Start: 05-15-2025 End: 05-15-2025 Subsequent hospital visit by physician [facility] Schedule [facility] Laboratory Comment on above: Arrived Start: 04-20-2025 End: 04-20-2025 Bamboo flowsheet Robbin Sánchez DPM Work Phone: [facility] Start: 04-20-2025 End: 04-20-2025 Bamboo flowsheet Robbin Sánchez DPM Work Phone: [facility] Start: 04-20-2025 End: 04-20-2025 Office outpatient visit 25 minutes Robbin Sánchez DPM Work Phone: [facility] Comment on above: MRSA (methicillin re [...] Available Start: 04-14-2025 End: 04-14-2025 [facility] Start: 04-14-2025 End: 04-14-2025 Subsequent hospital visit by physician Felipe Adam MD Work Phone: [facility] Comment on above: Hyperglycemia; Mixed hyperlipidemia; Chronic renal impairment, stage 3a (HCC) Start: 04-12-2025 End: 04-12-2025 Clinisync Result Encounter Robbin GARCIAM Work Phone: [facility] External [facility] Unsolicited Start: 04-12-2025 End: 04-12-2025 Clinisync Result Encounter Robbin GARCIAM Work Phone: [facility] External [facility] Unsolicited Start: 04-11-2025 End: 04-11-2025 Clinisync Result Encounter Robbin GARCIAM Work Phone: [facility] External [facility] Unsolicited Start: 04-11-2025 End: 04-11-2025 Clinisync Result Encounter Robbin Sánchez DPM Work Phone: [facility] Unsolicited Start: 04-11-2025 End: 04-13-2025 amb[facility] Start: 04-11-2025 End: 04-13-2025 Subsequent hospital visit by physician Robbin Sánchez DPM Work Phone: [facility] Comment on above: Pain in right foot Start: 04-06-2025 End: 04-06-2025 Office outpatient visit 25 minutes Robbin Sánchez DPDieudonne Work Phone: [facility] Comment on above: Right foot pain (Vikki baldev Dx); Skin ulcer of toe of right foot with fat layer exposed (HCC); Infection of toe; Idiopathic progressive polyneuropathy; Generalized edema Start: 04-06-2025 End: 04-06-2025 ambulatory ROBBIN SÁNCHEZ Not Available Start: 04-06-2025 End: 04-06-2025 Bamboo flowsheet Robbin Sánchez DPM Work Phone: [facility] Start: 04-06-2025 End: 04-06-2025 Bamboo flowsheet Robbin Sánchez DPM Work Phone: [facility] Start: 04-04-2025 End: 04-05-2025 Emergency department patient visit Severo Goodwin MD Work Phone: [facility] Emergency Department Comment on above: Pressure injury of d eep tissue of toe, unspecified laterality (Primary Dx) Start: 03-14-2025 End: 03-14-2025 Bamboo flowsheet Lynn Block MD Work Phone: [facility] NEUROLOG[facility] Start: 03-14-2025 End: 03-14-2025 Bamboo flowsheet Lynn Block MD Work Phone: [facility] Start: 03-14-2025 End: 03-14-2025 Office outpatient visit 25 minutes Lynn Block MD Work Phone: [facility] B Comment on above: BUCK (obstructive sle ep apnea) (Primary Dx); Claustrophobia ; Hypersomnia Start: 03-14-2025 End: 03-14-2025 ambulatory LYNN BLOCK Not Available Start: 02-15-2025 End: 02-17-2025 ambulatory FELIPE ADAM [facility] Start: 02-15-2025 End: 02-17-2025 Subsequent hospital visit by physician Felipe Adam MD Work Phone: [facility] Comment on above: Encounter for screen ing mammogram for malignant neoplasm of breast Start: 02-13-2025 ambulatory Facility:[facility] Start: 02-13-2025 End: 02-13-2025 Bamboo flowsheet Tiffanie Casas MD Work Phone: [facility] NE[facility] Start: 02-13-2025 End: 02-13-2025 Bamboo flowsheet Tiffanie Casas MD Work Phone: [facility] NE[facility] Start: 02-13-2025 End: 02-13-2025 ambulatory TIFFANIE CASAS Not Available Start: 02-13-2025 End: 02-13-2025 Office outpatient visit 25 minutes Tiffanie Casas MD Work Phone: [facility] Comment on above: Charcot's joint, lef t ankle and foot (Primary Dx); Gait instability; Idiopathic progressive polyneuropathy; Intractable 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 (CMS/HCC); Restless legs; Carpal tunnel syndrome, bilateral; BUCK (obstructive sleep apnea) Start: 12-06-2024 End: 12-06-2024 Bamboo flowsheet Lynn Block MD Work Phone: [facility] NE[facility] Start: 12-06-2024 End: 12-06-2024 Bamboo flowsheet Lynn Block MD Work Phone: [facility] NE[facility] Start: 12-06-2024 End: 12-06-2024 ambulatory LYNN BLOCK Not Available Start: 12-06-2024 End: 12-06-2024 Office outpatient new 60 minutes Lynn Block MD Work Phone: [facility] NE[facility] B Comment on above: BUCK (obstructive sle ep apnea) (Primary Dx); BUCK on CPAP; Claustrophobia (CMS/HCC) Start: 11-14-2024 End: 11-14-2024 Bamboo flowsheet Fozia Meng [employer] Work Phone: [facility] NEUROLOG[facility] Start: 11-14-2024 End: 11-14-2024 Bamboo flowsheet Fozia Meng [employer] Work Phone: [facility] NE[facility] Start: 11-14-2024 End: 11-14-2024 Office outpatient visit 25 minutes Fozia Meng [employer] Work Phone: [facility] Comment on above: BUCK on CPAP (Primary Dx); Idiopathic progressive polyneuropathy; Restless legs; Intractable 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 (CMS/HCC) Start: 11-14-2024 End: 11-14-2024 ambulatory FOZIA MENG Not Available Start: 11-14-2024 End: 11-14-2024 ambulatory FELIPE BACK [facility] Start: 11-14-2024 End: 11-14-2024 Subsequent hospital visit by physician Felipe Adam MD Work Phone: [facility] Laboratory Comment on above: Pre-diabetes; Mixed hyperlipidemia Start: 11-02-2024 End: 11-02-2024 Telephone encounter Janel Allen NP Work Phone: [facility] NE[facility] 210 Start: 10-11-2024 End: 10-11-2024 Office outpatient new 45 minutes Felipe Adam MD Work Phone: [facility] Comment on above: Thyroid nodule (Prim misa Dx); Lipoma of neck Start: 10-11-2024 End: 10-11-2024 [facility] Start: 10-05-2024 End: 10-06-2024 Refgunner Casas MD Work Phone: [facility] NEUR Comment on above: Idiopathic progressi ve polyneuropathy; Non-seasonal allergic rhinitis due to pollen Start: 09-14-2024 End: 09-14-2024 Bamboo flowsheet Fozia Meng [employer] Work Phone: [facility] NE[facility] Start: 09-14-2024 End: 09-14-2024 Bamboo flowsheet Fozia Meng [employer] Work Phone: [facility] NE[facility] Start: 09-14-2024 End: 09-14-2024 Telephone encounter Fozia Meng [employer] Work Phone: [facility] 210 Start: 09-14-2024 End: 09-14-2024 Office outpatient visit 25 minutes Fozia Meng [employer] Work Phone: [facility] NEUR Comment on above: BUCK on CPAP (Primary Dx); Idiopathic progressive polyneuropathy; Intractable 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 (CMS/HCC); Restless legs; Bilateral carpal tunnel syndrome Start: 09-14-2024 End: 09-14-2024 ambulatory FOZIA C LYNDAPIERCECHANTEL Not Available Start: 09-09-2024 End: 09-09-2024 Transcribe Orders Fozia Marcus MA [facility] [place] Comment on above: Thyroid nodule (Prim misa Dx) Start: 09-06-2024 End: 09-08-2024 ambulatory [facility] ADAM [facility] Start: 09-06-2024 End: 09-08-2024 Subsequent hospital visit by physician Felipe Adam MD Work Phone: [facility] Comment on above: Thyroid nodule Start: 08-11-2024 End: 08-11-2024 Refill Tiffanie Casas MD Work Phone: [facility] Comment on above: Idiopathic progressi ve polyneuropathy; Non-seasonal allergic rhinitis due to pollen Start: 06-10-2024 End: 06-10-2024 Bamboo flowsheet Tiffanie Casas MD Work Phone: [facility] BM NEUROLOGY Start: 06-10-2024 End: 06-10-2024 Bamboo flowsheet Tiffanie Casas MD Work Phone: [facility] NEUROLOG[facility] Start: 06-10-2024 End: 06-10-2024 Office outpatient visit 25 minutes Tiffanie Casas MD Work Phone: [facility] Comment on above: Idiopathic progressi ve polyneuropathy (Primary Dx); Bilateral carpal tunnel syndrome; Restless legs; Intractable 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 (CMS/HCC) Start: 06-10-2024 End: 06-10-2024 ambulatory TIFFANIE CASAS Not Available Start: 05-10-2024 End: 05-10-2024 Subsequent hospital visit by physician Felipe Adam MD Work Phone: [facility] Start: 05-10-2024 End: 05-10-2024 Office outpatient visit 40 minutes Cheryl Miles DO Work Phone: [facility] Comment on above: BUCK (obstructive sle ep apnea); Hypersomnia; Snoring; Class 2 obesity due to excess calories with body mass index (BMI) of 38.0 to 38.9 in adult, unspecified whether serious comorbidity present Start: 02-15-2024 End: 02-15-2024 ambulatory Frances Weston [facility] Facility:[facility] Start: 02-15-2024 End: 02-15-2024 ambulatory DPM Frances Harris Work Phone: [facility] Work Phone: Start: 02-15-2024 End: 02-15-2024 Departed Referred DPM Frances Harris Work Phone: [facility] Start: 06-15-2023 End: 06-15-2023 Subsequent hospital visit by physician Felipe Adam MD Work Phone: [facility] Comment on above: Mixed hyperlipidemia Start: 04-03-2023 ambulatory FELIPE ADAM [facility] Start: 03-03-2023 End: 03-03-2023 Office outpatient new 45 minutes CJ Adam Shook DPM Work Phone: [facility] Comment on above: Charcot arthropathy of midfoot (Primary Dx); Gastrocnemius equinus, unspecified laterality; Foot pain, left Start: 02-11-2023 End: 02-12-2023 ambulatory FRANCES Weston [facility] Facility: Start: 02-05-2023 End: 02-05-2023 Subsequent hospital visit by physician Felipe Adam MD Work Phone: [facility] Comment on above: Pelvic pressure in f emale Start: 02-04-2023 End: 02-05-2023 ambulatory FRANCES Weston [facility] Facility:H1 Start: 01-28-2023 End: 01-29-2023 ambulatory [facility] Trista [facility] Facility:H1 Start: 01-06-2023 End: 01-06-2023 [facility] Start: 07-09-2022 End: 07-09-2022 Subsequent hospital visit by physician Samantha Lino RD, JOE Work Phone: [facility] Comment on above: Arrived Start: 07-02-2022 End: 07-02-2022 Subsequent hospital visit by physician Kendall Diabetes Education Work Phone: [facility] Diabetic Education Start: 06-25-2022 End: 06-27-2022 Subsequent hospital visit by physician Tennille Additional Xray At [facility] Radiology Comment on above: Foreign body (FB) in soft tissue Start: 06-25-2022 End: 06-27-2022 Subsequent hospital visit by physician [facility] Mri Scanner [facility] MRI Comment on above: Pain of foot, unspec ified laterality; Closed nondisplaced fracture of second metatarsal bone of left foot, initial encounter; Closed nondisplaced fracture of lateral cuneiform of left foot, initial encounter Start: 05-27-2022 End: 2022 Subsequent hospital visit by physician [facility] Ultrasound Room [facility] Ultrasound Comment on above: Neck mass Start: 04-28-2022 End: 04-29-2022 ambulatory [facility] Start: 04-28-2022 End: 04-28-2022 Subsequent hospital visit by physician Felipe Adam MD Work Phone: [facility] Comment on above: Acute cystitis with hematuria Start: 04-12-2022 End: 04-12-2022 Subsequent hospital visit by physician Felipe Adam MD Work Phone: [facility] Laboratory Comment on above: Fatigue, unspecified type; Encounter for screening for HIV; Mixed hyperlipidemia; Hyperglycemia; Chronic renal impairment, stage 3b (HCC) Start: 02-05-2022 End: 02-05-2022 Subsequent hospital visit by physician Christel Donohue PT [facility] Physical Therapy Start: 02-04-2022 End: 02-04-2022 Patient encounter procedure [facility] [address] Start: 02-03-2022 End: 02-03-2022 Subsequent hospital visit by physician Hilaria Trujillo [facility] Physical Therapy Start: 01-29-2022 End: 01-29-2022 Subsequent hospital visit by physician Beverly Rangel PTA [facility] Physical Therapy Comment on above: Arrived Start: 01-27-2022 End: 01-27-2022 Subsequent hospital visit by physician Christel Donohue PT [facility] Physical Therapy Comment on above: Arrived Start: 01-24-2022 End: 01-24-2022 Subsequent hospital visit by physician Vanessa Garcia PT [facility] Physical Therapy Comment on above: Arrived Start: 01-22-2022 End: 01-22-2022 Subsequent hospital visit by physician Beverly Rangel [employer] [facility] Start: 01-17-2022 End: 01-17-2022 Subsequent hospital visit by physician Beverly Rangel [employer] [facility] Therapy Comment on above: Arrived Start: 01-13-2022 End: 01-13-2022 Subsequent hospital visit by physician Christel Donohue PT [facility] Physical Therapy Start: 01-03-2022 End: 01-03-2022 Subsequent hospital visit by physician Beverly Rangel [employer] [facility] Physical Therapy Comment on above: Arrived [...] Start: 11-29-2021 End: 11-29-2021 ambulatory FELIPE ADAM [facility] Start: 08-01-2021 End: 08-01-2021 Subsequent hospital visit by physician Felipe Adam MD Work Phone: [facility] Comment on above: Frequent UTI; Urinary urgency; Urinary frequency Start: 07-11-2021 End: 07-11-2021 Subsequent hospital visit by physician Felipe Adam MD Work Phone: [facility] Laboratory Comment on above: Frequent UTI; Urinary urgency; Urinary frequency Start: 06-11-2021 End: 06-11-2021 Subsequent hospital visit by physician Felipe Adam MD Work Phone: [facility] Laboratory Comment on above: Acute cystitis with [...] End: 02-13-2021 Subsequent hospital visit by physician [facility] Pat Screening Schedule [facility]MIT Comment on above: Suspected COVID-19 v irus infection Start: 01-21-2021 End: 01-21-2021 Subsequent hospital visit by physician [facility] Covid19 Pat Screening Schedule [facility] Comment on above: Viral illness Start: 11-15-2020 End: 11-15-2020 Subsequent hospital visit by physician [facility] Pat Screening Schedule [facility] Comment on above: Arrived Start: 09-16-2020 End: 09-16-2020 Emergency department patient visit Robbin Rooney Work Phone: [facility] ED Comment on above: Acute [...] End: 05-25-2020 Subsequent hospital visit by physician Felipeabril Adam [facility] Comment on above: Vitamin [...] End: 08-29-2019 Subsequent hospital visit by physician [facility] Sleep Center Schedule [facility] SLEEP LAB Comment on above: Arrived Start: 07-28-2019 End: 07-30-2019 Subsequent hospital visit by physician Tennille Additional Xray At [facility] Radiology Comment on above: MRSA (methicillin re sistant Staphylococcus aureus) septicemia (HCC) Start: 06-17-2019 End: 06-17-2019 Subsequent hospital visit by physician Felipe Adam [facility] Laboratory Comment on above: MRSA (methicillin re sistant Staphylococcus aureus) infection Start: 02-03-2019 End: 02-04-2019 Patient encounter procedure TIFFANIE W [facility] Start: 02-03-2019 End: 02-03-2019 Subsequent hospital visit by physician Tiffanie Casas Work Phone: [facility] MRI Comment on above: Brachial neuritis; Peripheral nerve disorder; Spasm of muscle Start: 11-10-2018 End: 11-10-2018 Patient encounter procedure Andrey Early Facility:[place] Start: 10-18-2018 End: 10-18-2018 Patient encounter procedure Andrey Early Work Phone: [facility] Start: 10-03-2018 Patient encounter procedure Dav Pembertoni Facility:[place] Start: 10-03-2018 End: 10-03-2018 Patient encounter procedure Felipe Jair [facility] Start: 09-20-2018 End: 09-21-2018 Patient encounter procedure Gosia Hartman [facility] Start: 09-20-2018 Patient encounter procedure Facility:[id number] Start: 09-13-2018 Patient encounter procedure GOSIA HARTMAN [facility] Start: 09-06-2018 End: 09-06-2018 Patient encounter procedure [facility] Provider [facility] Start: 08-31-2018 End: 08-31-2018 Patient encounter procedure Historical Provider [facility] Start: 08-27-2018 End: 08-28-2018 Patient encounter procedure Dav Hartman Facility:[facility] Start: 08-27-2018 Patient encounter procedure Facility:[id number] Start: 08-15-2018 End: 08-25-2018 Evaluation and management of inpatient JV Sullivan [facility] Start: 04-02-2018 End: 04-02-2018 Patient encounter procedure Melchortaylor Calderon Facility:[place] Start: 03-23-2018 Patient encounter procedure Shanice Juares Facility:[place] Start: 02-04-2018 End: 02-04-2018 Ambulatory Melchor Weston [facility] Start: 11-24-2017 Patient encounter procedure [facility] Start: 11-17-2017 End: 11-17-2017 Ambulatory Ceferino Jory Work Phone: [facility] Start: 10-20-2017 End: 10-20-2017 Ambulatory DAKSHA BETANCOURT [facility], [facility] Start: 10-20-2017 Patient encounter procedure [facility] Start: 10-09-2017 Ambulatory [facility] Start: 10-09-2017 End: 10-09-2017 Patient encounter procedure [facility] Start: 09-16-2017 Patient encounter procedure [facility] Start: 08-03-2017 Ambulatory [facility] Start: 03-31-2017 End: 03-31-2017 Ambulatory [facility]AN[facility] GOLDSTEIN [facility] Procedures Date Procedure Procedure Detail Performing Clinician Start: 05-15-2025 Basic metabolic pane l calcium total Frances Harris DPM Work Phone: Start: 05-15-2025 C-reactive protein Tyrone r Trista Harris DPM Work Phone: Start: 05-15-2025 MORPHOLOGY [...] 04-04-2025 Radex toe minimum 2 views Severo Goodwin MD Work Phone: Start: 04-04-2025 C-reactive protein Becky Goodwin MD Work Phone: Start: 04-04-2025 End: 04-04-2025 Natriuretic peptide Severo Goodwin MD Work Phone: Start: 11-14-2024 Comprehensive metabo lic panel Felipe Adam MD Work Phone: Start: 11-14-2024 Lipid panel Felipe Adam MD Work Phone: Start: 09-06-2024 Us soft tissue head & neck real time imge docm Felipe Adam MD Work Phone: Start: 05-10-2024 Renal function panel Soumya Forbes MD Work Phone: Start: 05-10-2024 Urnls dip stick/tabl et rgnt auto w/o microscopy Heather Forbes MD Work Phone: Start: 06-15-2023 Lipid panel Felipe Adam MD Work Phone: Start: 02-05-2023 Chloride bld Nikhil Hesham Cassidy DPM Work Phone: Start: 02-05-2023 Smr [...] Work Phone: Start: 05-20-2021 Electrolyte panel Gregory Forbse MD Work Phone: Start: 05-20-2021 Urnls dip stick/tabl et rgnt auto w/o microscopy Gregory Forbes MD Work Phone: Start: 01-21-2021 COVID-19 Pattie Tafoya lliams [employer] RE[employer]IONIST Work Phone: Start: 11-15-2020 COVID-19 Gosia Jau [...] Work Phone: Start: 12-14-2019 C-reactive protein Azalea Knight Work Phone: Start: 09-24-2019 Hemoglobin glycosyla jamia a1c Janel Dieudonne [employer] - [employer] TIME RE[employer]IONIST Work Phone: Start: 09-24-2019 VITAMIN B12 & FOLATE Ja danny Dieudonne [employer] - [employer] TIME RECEPTIONIST Work Phone: Start: 07-28-2019 Radex spine cervical 4 or 5 views Azalea Knight Work Phone: Start: 07-28-2019 Blood count complete auto&auto difrntl wbc Azalea Knight [employer] - [employer] TIME RECEPTIONIST Work Phone: Start: 07-28-2019 C-reactive protein Azalea Agudeloe [employer] - [employer] TIME RECEPTIONIST Work Phone: Start: 06-17-2019 Albumin serum plasma /whole blood Heather Heidyna Work Phone: Start: 06-17-2019 Assay of magnesium Swap na Andrei Work Phone: Start: 06-17-2019 Assay of phosphorus inorganic Heather Andrei Work Phone: Start: 06-17-2019 Assay of urea nitrog en quantitative Heather Benjaminadana Work Phone: Start: 06-17-2019 Blood count hemoglobin Heather Benjaminadana Work Phone: Start: 06-17-2019 Calcium total Heather Ka madana Work Phone: Start: 06-17-2019 Electrolyte panel Swapn a Benjaminadana Work Phone: Start: 06-17-2019 Protein total xcpt refractometry urine Heather Benjaminadana Work Phone: Start: 06-17-2019 Urinalysis microscop ic only Heather Benjaminadana Work Phone: Start: 06-17-2019 Urnls dip stick/tabl et rgnt auto w/o microscopy Heatherdomenica Forbes Work Phone: Start: 06-17-2019 C-reactive protein Dav Strong Hartman Work Phone: Start: 06-17-2019 Sedimentation rate r bc automated Dav Hartman Work Phone: Start: 02-03-2019 MRI of cervical spin e without contrast External Transcribed Start: 10-03-2018 End: 10-03-2018 Microscopic examination of blood, culture Dav Hartman Comment on above: Performed By: #### B C #### Unless otherwise noted, all testing performed by [facility] [place] [address] [address], [place] [address] CLIA: [id number] [employer] Supervisor: Harshad Solano M.D. Start: 09-06-2018 End: 09-06-2018 [...] MARISABEL APPLE Start: 08-25-2018 DISCHARGE PATIENT WASSAMIR Dieudonne ZECHARIAH Start: 08-25-2018 PULSE OXIMETRY, CONTINUOUS JVMARISABEL [...] N Start: 08-24-2018 OT EVAL AND TREAT JUJU [...] JV APPLE Start: 08-24-2018 FUNGAL STAIN JV EDWARD Carreon Start: 08-24-2018 TISSUE CULTURE JV Brady RICKEY Start: 08-24-2018 FUNGUS CULTURE JV Abreu LANG Start: 08-24-2018 PULSE OXIMETRY, CONTINUOUS JV APPLE Start: 08-24-2018 Procalcitonin (pct) WAS MARISABEL APPLE Start: 08-24-2018 PULSE OXIMETRY, CONTINUOUS JV APPLE Start: 08-24-2018 DRAIN CARE JVMARISABEL Carreon Start: 08-24-2018 MISCELLANEOUS NURSIN G CARE ORDER (SPECIFY) JV ZECHARIAH Start: 08-24-2018 TRANSFER PATIENT JV ZECHARIAH Start: 08-24-2018 FLUORO FOR SURGICAL PROCEDURES JV ZECHARIAH Start: 08-23-2018 ANAEROBIC AND AEROBI C CULTURE JV ZECHARIAH Start: 08-23-2018 PULSE OXIMETRY, CONTINUOUS JV APPLE [...] wbc JV APPLE Start: 08-22-2018 VANCOMYCIN, TROUGH WASE EDIN APPLE Start: 08-22-2018 PULSE OXIMETRY, CONTINUOUS JV [...] cer vical w/o & w/contr matrl JV CASASAN Start: 08-19-2018 Mri spinal canal lum bar [...] 08-19-2018 IP CONSULT TO IV TEAM W MITCHELEDIN APPLE Start: 08-19-2018 Assay of magnesium SHOAIB APPLE Start: 08-19-2018 Blood count complete auto&auto difrntl wbc JV APPLE Start: 08-19-2018 PULSE OXIMETRY, CONTINUOUS JV APPLE Start: 08-19-2018 PULSE OXIMETRY, CONTINUOUS JV APPLE Start: 08-18-2018 PULSE OXIMETRY, CONTINUOUS JV APPLE Start: 08-18-2018 PULSE OXIMETRY, CONTINUOUS JV APPLE Start: 08-18-2018 PULSE OXIMETRY, CONTINUOUS JV APPLE Start: 08-18-2018 TELEMETRY MONITORING BRITTA GUTIERREZ APPLE Start: 08-18-2018 INCENTIVE SPIROMETRY RT JV [...] JV APPLE Start: 08-15-2018 NOTIFY PHYSICIAN (SPECIFY) JVMARISABEL APPLE Start: 08-15-2018 PHARMACY TO DOSE VANCOMYCIN JV CASASAN Start: 08-15-2018 PLACE INTERMITTENT PNEUMATIC COMPRESSION DEVICE JV APPLE Start: 08-15-2018 PULSE OXIMETRY, CONTINUOUS JV APPLE Start: 08-15-2018 VITAL SIGNS JV Carreon Start: 08-15-2018 PATIENT STATUS (DIRECT) JV APPLE Start: 12-09-2017 Colonoscopy Felipe Adam MD Work Phone: Start: 03-20-2017 Microscopic observat ion [Identifier] in Cervix by Cyto stain Tiffanie Casas Plan of Treatment Date Care Activity Detail Author Start: 04-14-2030 Lipid panel Lipids [facility] Start: 11-14-2029 Lipid panel Lipids [facility] Start: 2029 Shingles Vaccine (1 of 2) Shingles Vaccine (1 of 2) [place] Start: 05-02-2029 Lipid panel Lipids [employer] [facility] Start: 12-10-2027 Screening for malignant neoplasm of colon [facility] Start: 04-12-2027 Lipid panel Lipids [facility] Start: 02-15-2027 Screening for malignant neoplasm of breast Breast cancer screen [facility] Start: 05-15-2026 GFR test (Diabetes, CKD 3-4, OR last GFR 15-59) GFR test (Diabetes, CKD 3-4, OR last GFR 15-59) [facility] Start: 05-14-2026 Lipid panel Kor[facility] Start: 04-14-2026 GFR test (Diabetes, CKD 3-4, OR last GFR 15-59) GFR test (Diabetes, CKD 3-4, OR last GFR 15-59) [facility] Start: 04-14-2026 Hemoglobin A1c measurement A1C test (Diabetic or Prediabetic) [facility] Start: 04-11-2026 GFR test (Diabetes, CKD 3-4, OR last GFR 15-59) GFR test (Diabetes, CKD 3-4, OR last GFR 15-59) [facility] Start: 11-15-2025 Depression Monitoring Depression Monitoring [employer] Start: 11-14-2025 GFR test (Diabetes, CKD 3-4, OR last GFR 15-59) GFR test (Diabetes, CKD 3-4, OR last GFR 15-59) [facility] Start: 11-14-2025 Hemoglobin A1c measurement A1C test (Diabetic or Prediabetic) [facility] Start: 10-12-2025 End: 10-12-2025 Patient encounter procedure 10/12/2025 10:30 AM EST Office Visit [facility] [address] [facility] [address] Sherman Adair MD [address] [address] [facility] Start: 10-11-2025 End: 10-11-2026 US Head and neck soft tissue US Soft Tissue Neck Imaging Routine Thyroid nodule Expected: 10/11/2025, Expires: 10/11/2026 [facility] Work Phone: Comment on above: Expected: 10/11/2025, Expires: Start: 08-23-2025 End: 08-23-2025 Patient encounter procedure 08/23/2025 1:00 PM EST Office Visit [facility] [address] [place] [address] [place] [phone] Jennie Van, [employer] TIME RECEPTIONIST [address] [facility] [place] [address] [facility] Start: 07-27-2025 End: 07-27-2025 Patient encounter procedure 07/27/2025 11:00 AM EDT Office Visit [facility] [address] [place] [address] Felipe Adam MD [address] [place] [address] Return in about 3 months (around 07/19/2025). [facility] Comment on above: Return in about 3 months (around 025). Start: 05-31-2025 End: 05-24-2026 XR Cervical spine 4 or 5 Views XR cervical spine complete 4 to 5 views Imaging Routine Cervical paraspinal muscle spasm Expected: 05/31/2025, Expires: 05/24/2026 [facility] Work Phone: Comment on above: Expected: 05/31/2025, Expires: Start: 05-25-2025 Lipid panel Lipid screen [facility] [place], [place] Start: 05-24-2025 End: 05-24-2025 Patient encounter procedure 05/24/2025 11:30 AM EDT [facility] [address] [place] [phone] Jennie [facility] [address] [facility] [place] [address] [facility] Start: 05-17-2025 End: 05-17-2025 Patient encounter procedure 05/17/2025 1:20 PM EDT Office Visit [facility] [address] [place] [address] Tiffanie Casas MD [address] [facility] [address] [phone] [facility] Start: 05-15-2025 End: 05-15-2025 Patient encounter procedure 05/15/2025 1:15 PM EDT Office Visit [address] [address] Felipe Adam MD [address] [place] [address] Return in about 6 months (around 05/15/2025). [facility] Comment on above: Return in about 6 months (around 05/15/20). Start: 05-10-2025 GFR test (Diabetes, CKD 3-4, OR last GFR 15-59) GFR test (Diabetes, CKD 3-4, OR last GFR 15-59) [facility] Start: 05-05-2025 Influenza vaccination [facility] Start: 05-02-2025 Hemoglobin A1c measurement A1C test (Diabetic or Prediabetic) [facility] Start: 05-02-2025 End: 05-02-2025 Patient encounter procedure 05/02/2025 2:00 PM EDT Office Visit [facility] B [address] [facility] [address] [place] [address] Fozia Meng, LOBBY CONCIERGE [address], [facility] [address] [place] [address] [facility] B Start: 05-01-2025 End: 05-01-2025 Patient encounter procedure 05/01/2025 4:00 PM EDT Office Visit [facility] [address] [place] [address] Robbin Sánchez, DPM [address] [place] [address] [facility] Start: 04-20-2025 End: 04-20-2025 Patient encounter procedure 04/20/2025 12:45 PM EDT Office Visit [facility] [address] [place] [address] Robbin Sánchez, DPM [address] [place], [place] [phone] Arrived [facility] Comment on above: Arrived Start: 04-06-2025 End: 04-06-2025 Patient encounter procedure 04/06/2025 4:30 PM EDT Office Visit [facility] [address] [place] [address] Robbin Sánchez, DPM [address] [place], [place] [phone] Arrived [facility] Comment on above: Arrived Start: 04-06-2025 End: 04-06-2026 Creatinine [Mass/volume] in Serum or Plasma Creatinine, Serum Lab Routine Right foot pain Expected: 04/06/2025 (Approximate), Expires: 04/06/2026 [facility] Comment on above: Expected: 04/06/2025 (Approximate), Expi res: 04/06/2026 Start: 04-06-2025 End: 04-06-2026 MR Foot - right WO and W contrast IV MR foot right w and wo IV contrast Imaging STAT Right foot pain Expected: 04/06/2025, Expires: 04/06/2026 [facility] Work Phone: Comment on above: Expected: 04/06/2025, Expires: Start: 03-14-2025 End: 03-14-2025 Patient encounter procedure [facility]A R B Start: 02-13-2025 End: 02-13-2025 Patient encounter procedure 02/13/2025 1:00 PM EDT Office Visit [facility] [address] [address] Tiffanie Casas MD [address] [facility] [address] [phone] [facility] Start: 01-27-2025 Depression Monitoring Depression Monitoring [facility] Start: 11-15-2024 End: 11-15-2024 Patient encounter procedure 11/15/2024 2:45 PM EST Office Visit [facility] [address] [place] [phone] Felipe Adam MD [address] [place] [address] 6 mo [facility] Comment on above: 6 mo Start: 11-14-2024 End: 11-14-2024 Patient encounter procedure [facility] LAURA R Comment on above: Arrived Start: 11-11-2024 End: 11-11-2024 Patient encounter procedure 11/11/2024 1:00 PM EST Office Visit [facility] [address] [place] [address] Felipe Adam MD [address] [place] [address] 6 mo [facility] Comment on above: 6 mo Start: 09-24-2024 Screening for malignant neoplasm of cervix [facility] Start: 09-14-2024 End: 09-14-2024 Patient encounter procedure 09/14/2024 11:20 AM EST Office Visit [facility] [address] [facility] [address] [place] [address] Fozia Meng LOBBY CONCIERGE [address] [facility] [address] [place] [phone] Arrived [facility] Comment on above: Arrived Start: 09-08-2024 DTaP/Tdap/Td vaccine (2 - Td or Tdap) DTaP/Tdap/Td vaccine (2 - Td or Tdap) [facility] Start: 09-08-2024 DTaP/Tdap/Td vaccine (2 - Td) DTaP/Tdap/Td vaccine (2 - Td) [place], [place] Start: 09-08-2024 Tetanus vaccination [facility] Start: 09-05-2024 End: 09-05-2024 Patient encounter procedure 09/05/2024 1:00 PM EST Office Visit [facility] [address] [facility] [address] [place] [phone] Tiffanie Casas MD [address] [facility] [address], [place] [phone] [facility] Start: 08-18-2024 End: 08-18-2024 Patient encounter procedure 08/18/2024 1:30 PM EST Office Visit [facility] [address] [facility] 2nd Floor [place], [place] [phone] Luis Mclean PA-C [address] [facility] [address] [place] [address] 1 yr [facility] Comment on above: 1 yr [facility] Start: 08-02-2024 End: 08-02-2024 Patient encounter procedure 08/02/2024 10:45 AM EDT Office Visit [facility] [address] [place] [phone] Cheryl Miles DO [address] [place] [address] [facility] Start: 07-11-2024 End: 07-11-2024 Telemedicine consultation with patient 07/11/2024 11:30 AM EDT Telemedicine [facility] [address] [place] [address] Janel Allen, LOBBY CONCIERGE [address] [place] [address] [facility] [address] Start: 06-10-2024 End: 06-10-2024 Patient encounter procedure 06/10/2024 10:20 AM EDT Office Visit [facility] [address] [facility] [address] [place] [phone] Tiffanie Casas MD [address] [place] [address] Arrived [facility] Comment on above: Arrived Start: 06-05-2024 COVID-19 Vaccine ( season) COVID-19 Vaccine ( season) [facility] Start: 06-05-2024 COVID-19 Vaccine ( season) COVID-19 Vaccine ( season) [facility] Start: 06-05-2024 Influenza vaccination Influenza Vaccine (#1) [facility] Start: 2024 Screening for malignant neoplasm of colon [facility] Start: 05-17-2024 GFR test (Diabetes, CKD 3-4, OR last GFR 15-59) GFR test (Diabetes, CKD 3-4, OR last GFR 15-59) [facility] Start: 05-14-2024 Diabetes screen Diabetes screen [facility] Start: 05-12-2024 End: 05-12-2024 Patient encounter procedure 05/12/2024 11:00 AM EDT Office Visit [facility] Part of [address] [phone] Lina Echols MD [facility] [address] [address] BUCK (obstructive sleep apnea) [facility] PUL Part of [facility] Comment on above: BUCK (obstructive sleep apnea) Start: 05-11-2024 Lipid panel Lipid screen [place], [place] Start: 05-11-2024 Lipid screen Lipid screen [place] Start: 05-05-2024 Influenza vaccination Flu vaccine (#1) [facility] Start: 03-23-2024 Depression Monitoring Depression Monitoring [facility] Start: 02-06-2024 GFR test (Diabetes, CKD 3-4, OR last GFR 15-59) GFR test (Diabetes, CKD 3-4, OR last GFR 15-59) [facility] Start: 02-06-2024 Hemoglobin A1c measurement A1C test (Diabetic or Prediabetic) [facility] Start: 08-13-2023 End: 08-13-2023 Patient encounter procedure [facility] Start: 06-22-2023 End: 06-22-2023 Patient encounter procedure 06/22/2023 11:15 AM EDT Office Visit [facility] [address] [place] [address] Felipe Adam MD [address] [place] [address] [facility] Start: 06-05-2023 Influenza vaccination Sequential Influenza Vaccine (Season Ended) [facility] Start: 05-05-2023 Influenza vaccination [facility] Start: 04-14-2023 End: 04-14-2023 Patient encounter procedure 04/14/2023 Office Visit Family Medicine Felipe Adam MD [address] [place] [address] [facility] Start: 04-12-2023 Hemoglobin A1c measurement A1C test (Diabetic or Prediabetic) [facility] Start: 04-11-2023 Depression Monitoring Depression Monitoring [facility] Start: 04-11-2023 History and physical examination, annual for health maintenance Wellness Visit [facility] Start: 12-25-2022 End: 12-25-2022 Patient encounter procedure 12/25/2022 Office Visit Infectious Diseases Dav Hartman MD [address] [address] [facility]. Start: 09-24-2022 Diabetes screen Diabetes screen [place], [place] Start: 08-07-2022 End: 08-07-2022 Patient encounter procedure 08/07/2022 Office Visit Urology Luis Mclean, PACharitoC [address] [facility] [address] [address] [facility] Start: 07-15-2022 End: 07-15-2022 Nursing evaluation of patient and report 07/15/2022 Nurse Only Family Medicine [facility] Start: 07-09-2022 End: 07-09-2022 Patient encounter procedure 07/09/2022 Appointment IP Unit Samantha Lino RD, LD [facility] Diet and Nutrition Start: 06-05-2022 Influenza vaccination [facility] Start: 05-20-2022 Creatinine measurement [facility] Start: 05-20-2022 Potassium [Moles/volume] in Serum or Plasma Potassium [facility] Start: 05-20-2022 Potassium monitoring Potassium monitoring [facility] Start: 05-14-2022 Creatinine measurement Creatinine monitoring [employer] Phone: Start: 05-14-2022 Potassium monitoring Potassium monitoring [employer] Phone: Start: 05-05-2022 Influenza vaccination Flu vaccine (#1) [employer] Start: 03-20-2022 Screening for malignant neoplasm of cervix [facility] Start: 02-05-2022 End: 02-05-2022 Patient encounter procedure 02/05/2022 Appointment Physical Therapy Christel Donohue, PT [facility] Start: 02-03-2022 End: 02-03-2022 Patient encounter procedure [facility] Start: 01-30-2022 End: 01-30-2022 Patient encounter procedure [facility] Start: 01-29-2022 End: 01-29-2022 Patient encounter procedure 01/29/2022 Appointment Physical Therapy eBverly Rangel [employer] [facility] Start: 01-27-2022 End: 01-27-2022 Patient encounter procedure 01/27/2022 Appointment Physical Therapy Christel Donohue, PT [facility] Start: 01-24-2022 End: 01-24-2022 Patient encounter procedure 01/24/2022 Appointment Physical Therapy Vanessa Garcia PT [facility] Start: 01-22-2022 End: 01-22-2022 Patient encounter procedure 01/22/2022 Appointment Physical Therapy Beverly Rangel [employer] [facility] Start: 01-17-2022 End: 01-17-2022 Patient encounter procedure 01/17/2022 Appointment Physical Therapy Beverly Rangel [employer] [facility] Start: 01-10-2022 End: 01-10-2022 Patient encounter procedure 01/10/2022 Appointment Physical Therapy Christel Donohue PT [facility] Start: 01-08-2022 End: 01-08-2022 Patient encounter procedure 01/08/2022 Appointment Physical Therapy Beverly Rangel [employer] [facility] Start: 01-02-2022 End: 01-02-2022 Patient encounter procedure 01/02/2022 Appointment Occupational Therapy Judi Marie OTA [address] [place] [address] [facility] Occupational Therapy Start: 12-31-2021 Diabetes screen Diabetes screen [facility] Start: 12-31-2021 End: 12-31-2021 Patient encounter procedure [facility] Physica l Therapy Start: 12-30-2021 End: 12-30-2021 Patient encounter procedure 12/30/2021 Appointment Occupational Therapy Cheryl Herman OT [facility] Occupational Therapy Start: 12-27-2021 End: 12-27-2021 Patient encounter procedure 12/27/2021 Appointment Occupational Therapy Eve Gaspar OTA [facility] Occupational Therapy Start: 11-14-2021 End: 11-14-2021 Patient encounter procedure 11/14/2021 Office Visit Family Medicine Felipe Adam MD [address] [place] [address] [facility] Start: 10-29-2021 Depression Monitoring Depression Monitoring [facility] Start: 09-16-2021 Creatinine measurement Creatinine monitoring [employer] Phone: Start: 09-16-2021 Potassium monitoring Potassium monitoring [employer] Phone: Start: 08-01-2021 End: 08-01-2021 Patient encounter procedure 08/01/2021 Office Visit Urology Lita Weeks MD [address] [place] [address], [facility] [address] [place] [address] [facility] Start: 06-05-2021 Influenza vaccination [facility] Start: 05-25-2021 Creatinine measurement Creatinine monitoring [place] Start: 05-25-2021 HbA1c (Bld) [Mass fraction] A1C test (Diabetic or Prediabetic) [facility] [place], TIFF Start: 05-25-2021 Hemoglobin A1c measurement A1C test (Diabetic or Prediabetic) [employer] Phone: Start: 05-25-2021 Potassium monitoring Potassium monitoring [place] Start: 11-13-2020 End: 11-13-2020 Office Visit 11/13/2020 Office Visit Family Medicine BackFelipe MD [address] [place] [address] [phone] [facility] Start: 11-02-2020 Potassium monitoring Potassium monitoring [place] Start: 10-23-2020 End: 10-23-2020 Office Visit 10/23/2020 Office Visit Infectious Diseases Dav Hartman MD [address] [place], [place] [phone] [facility] Start: 09-24-2020 HbA1c (Bld) [Mass fraction] A1C test (Diabetic or Prediabetic) [place] Start: 06-17-2020 Creatinine measurement Creatinine monitoring [place], [place] Start: 06-17-2020 Creatinine monitoring Creatinine monitoring [place], [place] Start: 06-17-2020 Potassium monitoring Potassium monitoring [place] Start: 06-12-2020 End: 06-12-2020 Office Visit 06/12/2020 Office Visit Infectious Diseases Dav Hartman MD [address] [place], [place] [address] [facility] Start: 06-05-2020 Influenza vaccination Flu vaccine (#1) [place] Start: 03-20-2020 Cervical cancer screen Cervical cancer screen [place], [place] Start: 03-20-2020 Screening for malignant neoplasm of cervix [facility] Start: 11-01-2019 End: 11-01-2019 Office Visit 11/01/2019 Office Visit Infectious Dav Beaver MD [address] [place], [place] [id number] [facility] Start: 07-28-2019 End: 07-28-2019 Office Visit 07/28/2019 Office Visit Dav Gay MD [address] [place] [address] [phone] [facility] Start: 06-27-2019 End: 06-27-2019 Nurse Only 06/27/2019 Nurse Only Family Medicine [facility] Start: 06-05-2019 Influenza vaccination Flu vaccine (#1) [place] Start: 06-05-2019 Influenza vaccination given SEQUENTIAL INFLUENZA VACCINE (Season Ended) [facility] Start: 2019 Screening for malignant neoplasm of breast [facility] Start: 06-05-2018 Influenza vaccination INFLUENZA VACCINE (#1) [facility] Work Phone: Start: 03-23-2018 End: 03-23-2018 Ambulatory [facility] Primary [facility] Start: 2009 Screening for malignant neoplasm of cervix HPV (without or with Pap) [facility] Start: 2000 Screening for malignant neoplasm of cervix PAP SMEAR DISCUSSION [facility] Work Phone: Start: 1998 Hepatitis B vaccine (1 of 3 - 19+ 3-dose series) Hepatitis B vaccine (1 of 3 - 19+ 3-dose series) [facility] Start: 1998 Third diphtheria, tetanus and acellular pertussis (DTaP) vaccination TDAP (ADULT) [facility] Work Phone: Start: 1997 Hepatitis C screening Hepatitis C Screening [facility] Start: 1997 Tetanus vaccination TETANUS [facility] Work Phone: Start: 1995 COVID-19 Vaccine (1) COVID-19 Vaccine (1) [facility] Work Phone: Start: 1994 HIV screen HIV screen [place], [place] Start: 1994 HIV screening HIV screen [facility] Start: 1992 HIV screening HIV SCREENING DISCUSSION [facility] Work Phone: Start: 1991 COVID-19 Vaccine (1) COVID-19 Vaccine (1) [employer] Phone: Start: 1991 Depression Monitoring Depression Monitoring [facility] Start: 1991 Depression screening using PHQ-9 (Patient Health Questionnaire 9) score [facility] Start: 1989 Urine screening for protein Urine Microalbumin [facility] Start: 1985 Pneumococcal Vaccine: Ped or At-Risk (1 - PCV) Pneumococcal Vaccine: Ped or At-Risk (1 - PCV) [facility] Start: 1984 COVID-19 Vaccine (1) COVID-19 Vaccine (1) [facility] Start: 1982 History and physical examination, annual for health maintenance Wellness Visit [facility] Start: 1979 COVID-19 Vaccine (#1) COVID-19 Vaccine (#1) [facility] [employer] Start: 1979 Hepatitis B vaccine (1 of 3 - 3-dose series) Hepatitis B vaccine (1 of 3 - 3-dose series) [facility] [employer] Start: 1979 Screening for malignant neoplasm of colon [facility] End: 02-13-2021 COVID-19 COVID-19 Lab Routine Suspected COVID-19 virus infection 1 Occurrences starting 02/13/2021 until 02/13/2021 [employer] Phone: Comment on above: 1 Occurrences starting 02/13/2021 until 02/13/2021 COVID-19 COVID-19 Lab Rou luis Suspected COVID-19 virus infection 02/13/2021 3:06 PM EDT [employer] Phone: End: 08-08-2020 COVID-19 Ambulatory COVID-19 Ambulatory Lab Routine SOB (shortness of breath) 1 Occurrences starting 08/08/2020 until 08/08/2020 [facility] [place] Comment on above: 1 Occurrences starting 08/08/2020 until 08/08/2020 COVID-19 Ambulatory COVID-19 Amb ulatory Lab Routine SOB (shortness of breath) 08/08/2020 4[facility]02 PM EST [facility]: 05-20-2021 Creatinine [Mass/volume] in Urine Creatinine, Random Urine Lab Routine Once for 1 Occurrences starting 05/20/2021 until 05/20/2021 [employer] Phone: Comment on above: Once for 1 Occurrences starting 05/20/20 until 05/20/2021 Creatinine [Mass/vol ume] in Urine Creatinine, Random Urine Lab Routine 05/20/2021 7:57 PM EDT [employer] Phone: End: 04-13-2021 Culture, Urine Culture, Urine Microbiology Routine Acute cystitis with hematuria 1 Occurrences starting 04/13/2021 until 04/13/2021 [employer] Phone: Comment on above: 1 Occurrences starting 04/13/2021 until 04/13/2021 Culture, Urine [employer] Phone: End: 05-27-2021 Culture, Urine Culture, Urine Microbiology Routine Difficult or painful urination 1 Occurrences starting 05/27/2021 until 05/27/2021 [employer] Phone: Comment on above: 1 Occurrences starting 05/27/2021 until 05/27/2021 End: 06-11-2021 Culture, Urine Culture, Urine Microbiology Routine Acute cystitis with hematuria Recurrent UTI 1 Occurrences starting 06/11/2021 until 06/11/2021 [employer] Phone: Comment on above: 1 Occurrences starting 06/11/2021 until 06/11/2021 End: 07-11-2021 Culture, Urine Culture, Urine Microbiology Routine Frequent UTI Urinary urgency Urinary frequency 1 Occurrences starting 07/11/2021 until 07/11/2021 [employer] Phone: Comment on above: 1 Occurrences starting 07/11/2021 until 07/11/2021 End: 08-01-2021 Culture, Urine Culture, Urine Microbiology Routine Frequent UTI Urinary urgency Urinary frequency 1 Occurrences starting 08/01/2021 until 08/01/2021 [employer] Phone: Comment on above: 1 Occurrences starting 08/01/2021 until 08/01/2021 End: 04-28-2022 Culture, Urine Culture, Urine Microbiology Routine Acute cystitis with hematuria 1 Occurrences starting 04/28/2022 until 04/28/2022 [employer] Phone: Comment on above: 1 Occurrences starting 04/28/2022 until 04/28/2022 End: 02-05-2023 Culture, Urine [employer] Phone: Comment on above: 1 Occurrences starting 02/05/2023 until 02/05/2023 End: 04-04-2025 Culture, Wound (with Gram Stain) [facility] Comment on above: One Time for 1 Occurrences starting 10/2024 until 04/04/2025 End: 02-15-2025 DBT Breast - bilateral screening [facility] Comment on above: 1 Occurrences starting 02/15/2025 until 02/15/2025 End: 04-12-2022 Hemoglobin A1c/Hemoglobin.total in Blood [employer] Phone: Comment on above: 1 Occurrences starting 04/12/2022 until 04/12/2022 End: 02-05-2023 Hemoglobin A1c/Hemoglobin.total in Blood [employer] Phone: Comment on above: Once for 1 Occurrences starting 02/06/20 23 until 02/05/2023 End: 08-29-2019 Home Sleep Study Home Sleep Study Sleep Center Routine One Time for 1 Occurrences starting 08/29/2019 until 08/29/2019 [facility] [place] Comment on above: One Time for 1 Occurrences starting 08/06 until 08/29/2019 End: 09-24-2019 Methylmalonic Acid, Serum Methylmalonic Acid, Serum Lab Routine Once for 1 Occurrences starting 09/24/2019 until 09/24/2019 [employer] Phone: Comment on above: Once for 1 Occurrences starting 09/24/20 19 until 09/24/2019 Methylmalonic Acid, Serum Methyl malonic Acid, Serum Lab Routine 09/24/2019 9:33 AM EST [employer] Phone: End: 09-24-2019 Nuclear Ab [Titer] in Serum by Immunofluorescence ALICJA Lab Routine Once for 1 Occurrences starting 09/24/2019 until 09/24/2019 [employer] Phone: Comment on above: Once for 1 Occurrences starting 09/24/20 until 09/24/2019 Nuclear Ab [Titer] i n Serum by Immunofluorescence ALICJA Lab Routine 09/24/2019 9:33 AM [employer] Phone: End: 05-20-2021 Protein, urine, random Protein, urine, random Lab Routine Once for 1 Occurrences starting 05/20/2021 until 05/20/2021 [employer] Phone: Comment on above: Once for 1 Occurrences starting 05/20/20 until 05/20/2021 Protein, urine, random Protein, urine, random Lab Routine 05/20/2021 7:57 PM EDT [employer] Phone: End: 12-14-2019 Sedimentation Rate Sedimentation Rate Lab Routine MRSA (methicillin resistant Staphylococcus aureus) septicemia (HCC) 1 Occurrences starting 12/14/2019 until 12/14/2019 [place] Comment on above: 1 Occurrences starting 12/14/2019 until 12/14/2019 Sedimentation Rate Sedimentation Rate Lab Routine MRSA (methicillin resistant Staphylococcus aureus) septicemia (HCC) 12/14/2019 12:39 PM EDT [employer] [place], [place] End: 09-24-2019 Sjogrens syndrome-A extractable nuclear antibody Sjogrens syndrome-A extractable nuclear antibody Lab Routine Once for 1 Occurrences starting 09/24/2019 until 09/24/2019 [employer] Phone: Comment on above: Once for 1 Occurrences starting 09/24/20 until 09/24/2019 Sjogrens syndrome-A extractable nuclear antibody Sjogrens syndrome-A extractable nuclear antibody Lab Routine 09/24/2019 9:33 AM [employer] Phone: End: 09-24-2019 Sjogrens syndrome-B extractable nuclear antibody Sjogrens syndrome-B extractable nuclear antibody Lab Routine Once for 1 Occurrences starting 09/24/2019 until 09/24/2019 [employer] Phone: Comment on above: Once for 1 Occurrences starting 09/24/20 until 09/24/2019 Sjogrens syndrome-B extractable nuclear antibody Sjogrens syndrome-B extractable nuclear antibody Lab Routine 09/24/2019 9:33 AM [employer] Phone: End: 09-12-2019 Sleep Study with PAP Titration Sleep Study with PAP Titration Sleep Center Routine One Time for 1 Occurrences starting 09/12/2019 until 09/12/2019 [employer] Phone: Comment on above: One Time for 1 Occurrences starting 06/2019 until 09/12/2019 End: 09-24-2019 Vitamin B6 Vitamin B6 Lab Routine Once for 1 Occurrences starting 09/24/2019 until 09/24/2019 [employer] Phone: Comment on above: Once for 1 Occurrences starting 09/24/20 until 09/24/2019 Vitamin B6 Vitamin B6 Lab R outine 09/24/2019 9:33 AM [employer] Phone: XR Cervical spine 4 or 5 Views XR cervical spine complete 4 to 5 views Imaging Routine Cervical paraspinal muscle spasm 05/24/2025 12:45 PM EDT [facility] Immunizations Immunization Date Immunization Notes Care Provider Yair dai 09-08-2014 tetanus toxoid, redu gaby diphtheria toxoid, and acellular pertussis vaccine, adsorbed Felipe Back [facility] [place] [place] Payers Date Payer Category Payer Managed Care HMO (unspecified) [facility] HMO/CHOICE PLUS/DULCE/DULCE PLUS [id number] 2024 Private Health Insurance [id number] 2024 Private Health Insurance [id number]. [id number] 2024 Self-pay [id number] 2017 Blue Cross Blue Shie ld (Indemnity or Managed Care) - Out of State BCBS OUT OF STATE [facility] [id number] 2017 Unknown 2016 Unknown [id number] 2016 Unknown [id number]. [id number] 2014 Medicaid [id number] 2.16.840.1.595556.3.249.13 2014 Medicaid [facility] [facility] MEDICAID [employer] MEDICAID xxxxxxxxxxx 2014-Present xxxxxxxxxxx [id number]. [id number] 1979 Unknown [id number] 2.16.840.1.117143.3.579.2.35 6 1979 Unknown [id number] 2.16.840.1.103735.3.579.2.35 6 1979 Unknown [id number] 2.16.840.1.800126.3.579.2.71 7 1979 Unknown [id number] 2.16.840.1.841091.3.579.2.71 7 1979 Unknown [id number] 2.16.840.1.479642.3.579.2.17 5 1979 Unknown [id number] 2.16.840.1.284688.3.579.2.90 3 1979 Unknown [id number] 2.16.840.1.886841.3.579.2.18 2 1979 Unknown [id number] 2.16.840.1.496204.3.579.2.18 5 1979 Unknown [id number] 2.16.840.1.172414.3.579.2.90 3 1979 Unknown [id number] 2.16.840.1.186421.3.579.2.59 3 1979 Unknown [id number] 2.16.840.1.228279.3.579.2.59 3 1979 Unknown [id number] 2.16.840.1.291967.3.579.2.59 3 1979 Unknown [id number] 2.16.840.1.863112.3.579.2.90 3 1979 Unknown [id number] 2.16.840.1.123178.3.579.2.90 3 1979 Unknown [id number] 2.16.840.1.170606.3.579.2.72 7 1979 Unknown [id number] 2.16.840.1.433331.3.579.2.17 4 1979 Unknown [id number] 2.16.840.1.025591.3.579.2.17 4 1979 Unknown [id number] 2.16.840.1.667203.3.579.2.17 4 1979 Unknown [id number] 2.16.840.1.276085.3.579.2.17 4 1979 Unknown [id number] 2.16.840.1.227260.3.579.2.17 4 1979 Unknown [id number] 2.16.840.1.693402.3.579.2.17 4 1979 Unknown [id number] 2.16.840.1.161075.3.579.2.17 4 1979 Unknown [id number] 2.16.840.1.873411.3.579.2.12 59 1979 Unknown [id number] 2.16.840.1.902096.3.579.2.12 59 1979 Unknown [id number] 2.16.840.1.576190.3.579.2.12 59 1979 Unknown [id number] 2.16.840.1.674899.3.579.2.12 59 1979 Unknown [id number] 2.16.840.1.082319.3.579.2.12 59 1979 Unknown [id number] 2.16.840.1.580219.3.579.2.12 59 1979 Unknown [id number] 2.16.840.1.806881.3.579.2.12 59 1979 Unknown [id number] 2.16.840.1.018326.3.579.2.12 59 1979 Unknown [id number] 2.16.840.1.036963.3.579.2.12 59 1979 Unknown [id number] 2.16.840.1.321549.3.579.2.12 59 1979 Unknown [id number] 2.16.840.1.824685.3.579.2.12 59 1959 Unknown [id number] 1.2.840.549192.1.13.239.2.7. [id number] Unknown 114 Unknown [id number] 2.16.840.1.043449.3.579.2.53 1 Social History Date Type Detail Facility Start: 05-01-2015 End: 03-06-2023 Tobacco smoking status NJIS Never smoker [facility] Work Phone: Start: 1980 Sex Assigned At Not on file O [facility] Work Phone: Start: 05-27-2019 End: 05-24-2025 Alcohol intake No [place] Start: 12-13-2019 End: 04-18-2025 Alcohol intake Current non-drinker of alcohol (finding) [place] Start: 12-09-2019 End: 05-13-2021 History SDOH Financial 4 [place] Start: 12-09-2019 End: 05-20-2022 History SDOH Food Worry 1 [place] Start: 12-09-2019 History SDOH Transpo rt Med 2 [place] Start: 05-11-2020 End: 03-06-2023 Tobacco use and exposure Never used [place] Start: 10-30-2021 End: 03-02-2023 Exposure to SARS-CoV-2 (event) Not sure [place] Start: 1980 [facility] Start: 05-20-2022 History SDOH Financial 3 [facility]: Start: 01-06-2023 End: 05-24-2025 History of Social function [facility] How hard is it for y ou to pay for the very basics like food, housing, medical care, and heating Not very hard [employer] Patient Health Questionnaire 9 item (PHQ-9) total score [Reported] 0 [employer] (I/We) worried wheyaritza er (my/our) food would run out before (I/we) got money to buy more. Never true [employer] [facility] At any time in the p ast 12 months, were you homeless or living in half-way [including now]? No [employer] [facility] [employer] [facility] Start: 10-09-2020 Gender identity Identifies as female gender (finding) [employer] [facility] Start: 10-09-2020 Sexual orientation Heterosexual (brooklynn siddiqui) [employer] [facility] How hard is it for y ou to pay for the very basics like food, housing, medical care, and heating Somewhat hard [employer] [facility] Start: 06-10-2024 End: 04-06-2025 Alcoholic beverage intake Lifetime non-drinker (finding) [facility] Start: 08-19-2023 Alcohol Comment Caffeine Intak e: Yes, pop [facility] Start: 11-14-2012 Sex Female (finding) [facility] alfredito Coleman 24/7 Card How often to you hav e a drink containing alcohol? Never [facility] Start: 04-20-2025 End: 05-24-2025 Alcoholic beverage intake Ex-drinker (finding) [facility] Start: 04-20-2025 Alcohol Comment 1-2 times a year [facility] NEGATED: Highlighted rowStart: BECKY History of tobacco use Passive smoker [facility] Functional Status Date Assessment Result Facility [facility] Clinical Notes 12-23-2021 to 05-24-2025 LINH Meyer - 05/24/2025 11:30 AM EDTTelephone Encounter - Paresh Cary - 05/23/2025 9:36 AM EDTTelephone Encounter - Paresh Cary - 05/23/2025 9:36 AM EDT Note Date & Type Note Facility 05-24-2025 History of Presen t illness Narrative Images from the original note were not included. Visit Summary: Celina Gaspar, a pre-diabetic female with Charcot joints in [...] for foot and sleep issues. Subjective Celina Gaspar is a 44 y.o. female who presents for BUCK (uses Cpap) and charcot joint of left ankle/foot. Patient had OV with Dr Block for BUCK 03/14/25 and started on Xanax for claustrophobia. Ms. Celina Gaspar is a pre-diabetic patient with a history [...] ATB's for this. Patient is following alfred Harris for the wound and a reconstruction surgery [...] reflexes: Goyo's absent. Ankle clonus absent. Coordination Ueyysu-lx-kjvk, rapid alternating movements and cbvg-rh-lyup normal bilaterally without dysmetria. Gait Casual gait: Romberg is absent. Currently has elias boot on right foot and wrap on left . Procedures Objective There were no vitals taken for this visit. Diagnostic Test Results: Hemoglobin A1c: 5.8%. Previous results: Hemoglobin A1c: 5.1. MRI and X-rays of neck (2019): Disc osteophyte complexes at C4-C5-6, most prominently at C6-7. Mild spinal canal stenosis. Possible focal hyperintensity at T2 signal at C6-7. Physical Exam Results Assessment & Plan 1. Cervical Spine Issues - Assessment: Patient reports neck spasms and tightness. MRI and X-rays from 2019 show disc osteophyte complexes at C4-C5-6, most prominently at C6-7, with mild spinal canal stenosis and possible focal hyperintensity at T2 signal at C6-7. Patient experiences numbness and tingling from the [...] and muscle spasms in neck, back and legs. Patient has one refill left on pregabalin. - [...] to blister formation. Patient experiences gait instability, describing herself as clumsy, but has been working on improving this. No falls reported. - Plan: - Consider physical therapy for gait improvement and upper body exercises - Educate patient on importance of post-surgical rehabilitation - Follow up with Dr. Harris regarding post-surgical care - Continue current management plan documented in this encounter [facility] 05-23-2025 Telephone encount er Note Patient same day canceled due to her foot being in a boot and cannot drive by herself. [facility] 05-23-2025 Miscellaneous Notes Formattin g of this note might be different from the original. Patient same day canceled due to her foot being in a boot and cannot drive by herself. documented in this encounter [facility] 04-20-2025 History of Presen t illness Narrative [...] visit with xra documented in this encounter [facility] 04-14-2025 Evaluation note Diagnosis Chronic renal impairment, [...] stage 3a (HCC) documented in this encounter [facility]07-10-2025 Evaluation note* Diagnosis Chronic renal impairment, stage 3a (HCC)- Primary Depression with anxiety Dysthymic disorder Gastroesophageal reflux disease without esophagitis Esophageal reflux Vitamin D deficiency Unspecified vitamin D deficiency Mixed hyperlipidemia BUCK on CPAP Obstructive sleep apnea (adult) (pediatric) Restless legs Restless legs syndrome (RLS) Hyperglycemia Other abnormal glucose Pain in right foot Pain in limb documented in this encounter [facility]07-03-2025 History of Present illness Narrative* oRbbin Sánchez DPM - 04/06/2025 4:30 PM EDT Celina Gaspar is a 44 y.o. female presents with chief complaint of Foot Ulcer (RT toe 2 ulcer) HPI: HPI Pt has ulcer on RT toe 2 for about 2 wks. She went to [facility] ER on 04-04-25, xrays, culture and [...] toe or midfoot but also Charcot MRI [facility] 04-11-25 11:30 AM, arrive at 11:00 AM. Pt notified. documented in this encounterCitizens Memorial [id number] Evaluation note* Diagnosis Chronic renal impairment, stage 3a (HCC)- Primary Depression with anxiety Dysthymic disorder Gastroesophageal reflux disease without esophagitis Esophageal reflux Vitamin D deficiency Unspecified vitamin D deficiency Mixed hyperlipidemia BUCK on CPAP Obstructive sleep apnea (adult) (pediatric) Restless legs Restless legs syndrome (RLS) Hyperglycemia Other abnormal glucose Pressure injury of deep tissue of toe, unspecified laterality- Primary documented in this encounter [facility]06-10-2025 History of Present illness Narrative* Lynn Block [...] Gaspar Dept: Neurology : 1980 Appt Date: 03/14/2025 [...] in about 6 weeks (around 04/25/2025), 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 Lab Frequency Next Occurrence Therapeutic injection carpal [...] Out of bed 0800. Noct oxim PSG ([place]) (BMI=39.1) - AHI=5.3, REM=21 vs 2.8, all supine; PLMI=3.6, PLMAI=0.6 ([place] - MAINE=6.4, position not given PAPT ([place]/[facility]) - AHI=1.8 @ 12 with REM; PLMI=0 ([place]/[facility]) (BMI=38.4) - AHI=4.6 @ 11 no REM, [...] Lynn Block M.D. [facility] ? [address] ? [place], [place] [address] ? ? fax Neurology ? Clinical Neurophysiology ? Epilepsy ? Sleep Disorders ? Clinical Informatics documented in this encounterCitizens Memorial [id number] Evaluation note* Diagnosis Chronic renal impairment, stage [...] Other screening mammogram documented in this encounter [facility]05-12-2025 History of Present illness Narrative* Tiffanie Casas [...] Depression: Not at risk (11/15/2024) Received from [facility] PHQ-2 PHQ-9 Total Score: 0 REVIEW [...] reflexes: Goyo's absent. Ankle clonus absent. Coordination Nxclki-dq-jpxj, rapid alternating movements and sqcq-sb-lcei normal bilaterally without dysmetria. Gait Normal casual, toe, heel and tandem gait. Romberg is absent. 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 She continues to have significant discomfort in her feet to interrupt her sleep. This is likely worsened by Bukeaxz-Bkgoc-Cjgbj for which she had surgery in February [...] nasal pillows. She will take this to [facility] in [place]. We will get the original sleep study from [facility] for review. She is following with Dr. Block for sleep medicine. EVALUATION: PSG 03/2024 - CPAP [id number] w/heated humidification EMG of BUE 11/25 showed [...] by Tiffanie Casas MD documented in this encounterCitizens Memorial [id number] History of Present illness Narrative* Lynn Block [...] Out of bed 0800. Noct oxim PSG ([place]) (BMI=39.1) - AHI=5.3, REM=21 vs 2.8, all supine; PLMI=3.6, PLMAI=0.6 ([place]) - MAINE=6.4, position not given PAPT ([place]ina) - AHI=1.8 @ 12 with REM; PLMI=0 ([place]) (BMI=38.4) - AHI=4.6 @ 11 no REM, [...] in all four extremities, including at least art librarian, finger abductors, biceps, triceps, deltoid, toe flexors [...] CHOLECYSTECTOMY 2007 GALLBLADDER SURGERY HYSTERECTOMY TONSILLECTOMY 1985 Allergies Allergen Reactions Topamax [Topiramate] Made her [...] Lynn Block M.D. [facility] ? [address] ? [place], [place] [address] ? ? fax Neurology ? Clinical Neurophysiology ? Epilepsy ? Sleep Disorders ? Clinical Informatics documented in this encounterCitizens Memorial [id number] Telephone encounter Note* Telephone Encounter - Janel Allen NP - 11/02/2024 9:16 PM EST Pharmacy sends medication clarification for nortriptyline as there are two directions on one received. Per ONUR [facility] plan increase nortriptyline 50 mg 2 daily/bedtime total of 100 mg. [facility] [id number] Miscellaneous Notes* Telephone Encounter - Janel Allen NP - 11/02/2024 9:16 PM EST Pharmacy sends medication clarification for nortriptyline as there are two directions on one received. Per ONUR Gunderson plan increase nortriptyline 50 mg 2 daily/bedtime total of 100 mg. documented in this encounterCitizens Memorial [id number] NoteOPG [address] [facility] JAK[facility] (11) [facility] EAR, NOSE AND THROAT PHYSICIANS [address] [facility] MEDICAL OFFICE [facility] [address] Dept: [phone] Loc: [phone] MD Celina Browne 44 y.o. female Patient [...] Resource Strain: Medium Risk (05/08/2024) Received from [facility] Overall Financial Resource Strain (CARDIA) Difficulty of Paying Living Expenses: Somewhat hard Food Insecurity: No Food Insecurity (05/08/2024) Received from [facility] Hunger Vital Sign Worried About Running Out of Food in the Last Year: Never true Ran Out of Food in the Last Year: Never true Transportation Needs: Unknown (05/08/2024) Received from [facility] PRAPARE - Transportation Lack of Transportation (Non-Medical): No Housing Stability: Unknown (05/08/2024) Received from [facility] Housing Stability Vital Sign Unstable Housing [...] of submandibular glands, clear salivary flow from Gren[place]'s ducts, no stones of Felipe's ducts Temporomandibular Joint: no crepitus with motion, no tenderness on palpation, no mayo (more content not included)...[facility] [id number] History of Present illness Narrative* Sherman Adair MD - 10/11/2024 10:05 AM EST OPG [address] (11) [facility] [address] [facility] [address] Dept: [phone] Loc: [phone] MD Celina Browne 44 y.o. female Patient [...] Resource Strain: Medium Risk (05/08/2024) Received from [facility] Overall Financial Resource Strain (CARDIA) Difficulty of Paying Living Expenses: Somewhat hard Food Insecurity: No Food Insecurity (05/08/2024) Received from [facility] Hunger Vital Sign Worried About Running Out of Food in the Last Year: Never true Ran Out of Food in the Last Year: Never true Transportation Needs: Unknown (05/08/2024) Received from [facility] PRAPARE - Transportation Lack of Transportation (Non-Medical): No Housing Stability: Unknown (05/08/2024) Received from [facility] Housing Stability Vital Sign Unstable Housing [...] subma ndibular glands, clear salivary flow from Gren[place]'s ducts, no stones of Gren[place]'s ducts Temporomandibular Joint: no crepitus with motion, [...] Hematological: Negative. Psychiatric/Behavioral: Negative. documented in this [id number] Telephone encounter Note* Telephone Encounter - Gwen Fan - 09/14/2024 2:18 PM EST Voicemail Received: Our numbers [phone] actually have a question regarding a prescription that was prescribed today, If someone could please call me back. Thank you. Rosa Isela. [facility] [id number] Miscellaneous Notes* Telephone Encounter - Gwen Fan - 09/14/2024 2:18 PM EST Voicemail Received: Our numbers [phone] actually have a question regarding a prescription that was prescribed today, If someone could please call me back. Thank you. Rosa Isela. documented in this encounterCitizens Memorial [id number] Miscellaneous Notes* Telephone Encounter - My Johnson - 08/11/2024 12:03 PM EST Patient called and requested refill of Lyrica to be sent to [facility] in [place]. documented in this [facility]11-07-2024 Telephone encounter Note* Telephone Encounter - My Johnson - 08/11/2024 12:03 PM EST Patient called and requested refill of Lyrica to be sent to [facility] in [place]. [facility] [id number] History of Present illness Narrative* Tequila LINDSAY Obando - 06/10/2024 10:20 AM EDT Images from [...] (Vitamin D-3) 50 MCG (1999 [place]) tablet Oral diclofenac sodium 1 % gel [...] Grandfather Depression: At risk (01/28/2024) [facility] PHQ-2 PHQ-9 Total Score: 6 REVIEW [...] reflexes: Goyo's absent. Ankle clonus absent. Coordination Wmrvjw-jc-jiun, rapid alternating movements and ndds-tr-ywxm normal bilaterally without dysmetria. Gait Normal casual, [...] Follow up 3 months. documented in this encounterCitizens Memorial [id number] History of Present illness Narrative* Cheryl Miles DO - 05/10/2024 2:00 PM EDT Images [...] to clinic: 3-6 months documented in this encounterCitizens Memorial [id number] History of Present illness Narrative* MASSIMO Shook [...] 2022. Shefollows [place] an outside provider in [place] and was immobilized for an extended period [...] Foot & Ankle Surgery documented in this [id number] NotePROCEDURE: XR ANKLE LT MIN 3 V, [...] Electronically authenticated by: PIPER MERCEDES Date: 2023-01-29 07:05[facility]04-27-2023 NotePROCEDURE: XR ANKLE LT MIN 3 V, [...] Electronically authenticated by: PIPER MERCEDES Date: 2023-01-29 07:05[facility]10-05-2022 History of Present illness Narrative* Samantha Lino [...] BMR: 1573 calories Est. total calorie needs: ~2098-1652 Lab Results Component Value Date/Time TRIG 460 [...] bread Supper: pork chop or chicken, homemade divehi fries, mashed, or baked potato with broccoli [...] session duration: 55 minutes. [facility] Phone: 1(494) 232-264605-04-2022 History of Present illness Narrative* Christel Donohue, PT - 02/05/2022 9:45 AM EDT [facility] Re[facility] Wellness Date: 02/05/2022 Patient Name: Celina Gaspar : 1980 Pt No Showed Appt- Follow up call, left message on voicemail that patient discharged, but to call if has questions or concerns. Christel Donohue, PT Date: 02/05/2022 [facility] Phone: 1(170) 508-353105-04-2022 Hospital course Narrative* Christel Donohue, PT - 02/05/2022 9:45 AM EDT Images from the original note were not included. [facility] Outpatient Physical Therapy Discharge Summary [...] Donohue, PT Date: 02/05/2022 documented in this [employer] Phone: 1([phone]) 614-729005-02-2022 History of Present illness Narrative* Jerica Melgar - 02/03/2022 10:30 AM EDT [facility] Date: 02/03/2022 Patient Name: Celina Gaspar : 1980 Pt Cancelled Appt due to no reason for cancel. Jerica Melgar Date: 02/03/2022 documented in this [employer] Phone: [phone]) 839-484604-27-2022 History of Present illness Narrative* Beverly Rangel, LINING PARTS SEWER - 01/29/2022 9:00 AM EDT Images from the original note were not included. [facility] Outpatient Physical Therapy Daily Note [...] Increase trunk ROM B rotation WFL-Not Met Custodial Goals - Time Frame for MCC goals : 10 Refined Syrup Operator Goals Time Frame for MCC goals : 10 MCC goal 1: Decrease pain low back 2/10 at worst x3 days for completing normal activities MCC goal 2: Patient to report 50% decrease in radicular symptoms L LE Post Treatment Pain: 5/10 Time In: 0859 Time Out: 0947 Timed Code Treatment Minutes: 48 Minutes Total Treatment Time: 48 Minutes Beverly Rangel, LINING PARTS SEWER Date: 01/29/2022 documented [facility] this [facility] Phone: [phone]) 308-802704-25-2022 History of Present illness Narrative* Christel Donohue, PT - 01/27/2022 3:45 PM EDT Images from the original note were not included. [facility] Outpatient Physical Therapy Daily Note Date: 01/27/2022 Patient Name: Celina Gaspar : 1980 (41 y.o.) Referring Practitioner: Liliane Sawyer APRN, PART TIME RECEPTIONIST Referral Date : 12/19/21 Diagnosis: Lumbar radiculopathy [...] Increase trunk ROM B rotation WFL-Not Met Refined Syrup Operator Goals - Time Frame for MCC goals : 10 Refined Syrup Operator Goals Time Frame for superintendent marine oil terminal goals : 10 superintendent marine oil terminal goal 1: Decrease pain low back 2/10 at worst x3 days for completing normal activities MCC goal 2: Patient to report 50% decrease in radicular symptoms L LE Post Treatment Pain: 4/10 Time In: 15:50 Time Out : 16:19 Timed Code Treatment Minutes: 34 Minutes Total Treatment Time: 34 Minutes Christel Donohue, PT Date: 01/27/2022 documented in this [facility] Phone: 1(272) 441-663304-22-2022 History of Present illness Narrative* Vanessa Garcia, PT - 01/24/2022 9:45 AM EDT Images from the original note were not included. [facility] Outpatient Physical Therapy Daily Note [...] 4: Increase trunk ROM B rotation WFL Custodial Goals - Time Frame for MCC goals : 10 Refined Syrup Operator Goals Time Frame for superintendent marine oil terminal goals : 10 superintendent marine oil terminal goal 1: Decrease pain low back 2/10 at worst x3 days for completing normal activities superintendent marine oil terminal goal 2: Patient to report 50% decrease in radicular symptoms L LE Post Treatment Pain: 5/10 Time In: 0952 Time Out: 1030 Timed Code Treatment Minutes: 38 Minutes Total Treatment Time: 38 Minutes Vanessa Garcia, THERESE Date: 01/24/2022 documented in this [facility] Phone: [phone]) 875-200804-20-2022 History of Present illness Narrative* Beverly Rangel, LINING PARTS SEWER - 01/22/2022 4:45 PM EDT [facility] Date: 01/22/2022 Patient Name: Celina Gaspar : 1980 Patient did not show up for her appointment. Message left on answering machine with a reminder of her next appointment on Thursday. Beverly Rangel, LINING PARTS SEWER Date: 01/22/2022 documented in this [facility] Phone: [phone]) [phone] History of Present illness Narrative* Beverly Rangel, LINING PARTS SEWER - 01/17/2022 10:30 AM EDT Images from the original note were not included. [facility] Outpatient Physical Therapy Daily Note [...] 4: Increase trunk ROM B rotation WFL Refined Syrup Operator Goals - Time Frame for superintendent marine oil terminal goals : 10 MCC goal 1: Decrease pain low back 2/10 at worst x3 days for completing normal activities MCC goal 2: Patient to report 50% decrease in radicular symptoms L LE Post Treatment Pain: 5/10 Time In: 1037 Time Out: 1107 Timed Code Treatment Minutes: 30 Minutes Total Treatment Time: 30 Minutes Beverly Rangel PTA Date: 01/17/2022 documented in this [facility] Work Phone: [phone]) [phone] History of Present illness Narrative* ISAIAH Metzger - 01/13/2022 3:15 PM EDT [facility] Date: 01/13/2022 Patient Name: Celina Gaspar : 1980 Pt Cancelled Appt due to no reason given. Eve GasparPRESTON lazcano/Matthew Date: 01/13/2022 documented in this [facility] Phone: [phone]) 279-520404-01-2022 History of Present illness Narrative* Beverly Rangel, LINING PARTS SEWER - 01/03/2022 9:45 AM EDT Images from the original note were not included. [facility] Outpatient Physical Therapy Daily Note [...] 4: Increase trunk ROM B rotation WFL Refined Syrup Operator Goals - Time Frame for MCC goals : 10 MCC goal 1: Decrease pain low back 2/10 at worst x3 days for completing normal activities superintendent marine oil terminal goal 2: Patient to report 50% decrease in radicular symptoms L LE Post Treatment Pain: 5/10 Time In: 0948 Time Out: 1028 Timed Code Treatment Minutes: 40 Minutes Total Treatment Time: 40 Minutes Beverly Rangel, LINING PARTS SEWER Date: 01/03/2022 documented in this [facility] Work Phone: [phone]) 463-845003-29-2022 History of Present illness Narrative* Cheryl Herman, OT - 12/31/2021 9:30 AM EDT Images from the original note were not included. [facility] Outpatient Occupational Therapy Daily Note [...] Time Frame for Short term goals: STG=LTG Refined Syrup Operator Goals Time Frame for MCC goals : 12 visits (01/24/2022) MCC goal 1: pt to be indepenent in HEP-MET superintendent marine oil terminal goal 2: Pt to demonstrate R wrist flexion to 65 degrees or more in order to engage in daily tasks-MET MCC goal 3: Pt to demonstrate R wrist extension to 60 degrees or more in order to engage in daily tasks-MET superintendent marine oil terminal goal 4: Pt to be educated on carpal tunnel do's & dont's in order to prevent further repetitive injury to wrist-MET Timed Code Treatment Minutes: 30 Minutes Time In: 915 Time Out: 945 Timed Coded Minutes: 30 Total Treatment Time: 30 THERESA Houser, OTR/L Date: 12/31/2021 documented in this [facility] [employer] Work Phone: [phone]) 422-569703-29-2022 Hospital course Narrative* Cheryl Herman OT - 12/31/2021 9:30 AM EDT Images from the original note were not included. [facility] Outpatient Occupational Therapy Discharge Summary [...] has been provided w/ HEP for continued pinch/art librarian strengthening & stretching. Therapist provided pt with handout on Carpal Tunnel Dos & Dont's to avoid re-injury. Prognosis: Fair Goals Short Term Goals Time Frame for Short term goals: STG=LTG Refined Syrup Operator Goals Time Frame for MCC goals : 12 visits (01/24/2022) MCC goal 1: pt to be indepenent in HEP-MET MCC goal 2: Pt to demonstrate R wrist flexion to 65 degrees or more in order to engage in daily tasks-MET MCC goal 3: Pt to demonstrate R wrist extension to 60 degrees or more in order to engage in daily tasks-MET superintendent marine oil terminal goal 4: Pt to be educated on carpal tunnel do's & dont's in order to prevent further repetitive injury to wrist-MET Reason for Discharge [] Poor Follow Through [] Completion of Prescribed Sessions [x] Optimal Function Achieved [] Patient Discharged Self [x] Goals Achieved Comments: Thank you for this referral THERESA Houser, OTR/L Date: 12/31/2021 documented in this [facility] Work Phone: [phone]) [phone] History of Present illness Narrative* Christel Donohue, PT - 12/31/2021 8:30 AM EDT Images from the original note were not included. [facility] Outpatient Physical Therapy Evaluation Date: 12/31/2021 Patient: Celina Gaspar : 1980 Referring Practitioner: Liliane Sawyer APRN, PART TIME RECEPTIONIST Referral Date : 12/19/21 Diagnosis: Lumbar radiculopathy [...] 4: Increase trunk ROM B rotation WFL superintendent marine oil terminal goals Time Frame for MCC goals : 10 superintendent marine oil terminal goal 1: Decrease pain low back 2/10 at worst x3 days for completing normal activities MCC goal 2: Patient to report 50% decrease in radicular symptoms L LE Patient's Goal: Decrease back pain to complete normal activities Timed Code Treatment Minutes: 15 Minutes Total Treatment Time: 45 Time In: 8:30 Time Out: 9:15 Christel Donohue, PT Date: 12/31/2021 documented in this [facility] Phone: [phone]) [phone] History of Present illness Narrative* Cheryl Herman, OT - 12/30/2021 8:30 AM EDT Images from the original note were not included. [facility] Outpatient Occupational Therapy Daily Note [...] Time Frame for Short term goals: STG=LTG Refined Syrup Operator Goals Time Frame for superintendent marine oil terminal goals : 12 visits (01/24/2022) superintendent marine oil terminal goal 1: pt to be indepenent in HEP-MET MCC goal 2: Pt to demonstrate R wrist flexion to 65 degrees or more in order to engage in daily tasks-MET MCC goal 3: Pt to demonstrate R wrist extension to 60 degrees or more in order to engage in daily tasks-MET MCC goal 4: Pt to be educated on carpal tunnel do's & dont's in order to prevent further repetitive injury to wrist-MET Time In: 835 Time Out: 915 Timed Coded Minutes: 40 Total Treatment Time: 40 THERESA Houser OTR/L Date: 12/30/2021 documented in this [facility] Work Phone: 1(138) 272-184603-21-2022 History of Present illness Narrative* Cheryl Herman OT - 12/23/2021 8:30 AM EDT Images from the original note were not included. [facility] Outpatient Occupational Therapy Evaluation Date: [...] completing these mvmts Left Hand Strength - Housekeeping Manager (lbs) Handle Setting 2: 54#, 50#, 53# (52.3# ave) Left Hand Strength - Pinch (lbs) Lateral: 13.5# Tip: 8# Palmar 3 point: 11# Right Hand Strength - Housekeeping Manager (lbs) Handle Setting 2: 53#, 54#, 53# [...] Time Frame for Short term goals: STG=LTG superintendent marine oil terminal goals Time Frame for MCC goals : 12 visits (01/24/2022) superintendent marine oil terminal goal 1: pt to be indepenent in HEP superintendent marine oil terminal goal 2: Pt to demonstrate R wrist flexion to 65 degrees or more in order to engage in daily tasks MCC goal 3: Pt to demonstrate R wrist extension to 60 degrees or more in order to engage in daily tasks MCC goal 4: Pt to be educated on carpal tunnel do's & dont's in order to prevent further repetitive injury to wrist Patient's Goal: pt wishes to return to prior function Time In: 830 Time Out: 924 Timed Coded Minutes: 0 Total Treatment Time: 54 THERESA Houesr, OTR/L 12/23/2021 documented in this [facility] Phone: evaluation note* Diagnosis Viral illness Unspecified viral infection, in conditions classified elsewhere and of unspecified site documented in this encounter [employer] Phone: evaluation note* Diagnosis Suspected COVID-19 virus infection documented in this encounter [employer] Phone: evalgcclsx note* Diagnosis Acute cystitis with hematuria Acute cystitis documented in this encounter [employer] Phone: evaluation note* Diagnosis Difficult or painful urination Dysuria documented in this encounter [employer] Phone: evalqoshio note* Diagnosis Acute cystitis with hematuria Acute cystitis Recurrent UTI Urinary tract infection, site not specified documented in this encounter [employer] Phone: evaluation note* Diagnosis Frequent UTI Urinary tract infection, site not specified Urinary urgency Urgency of urination Urinary frequency documented in this encounter [employer] Phone: evalcuyfsk note* Diagnosis Frequent UTI Urinary tract infection, site not specified Urinary urgency Urgency of urination Urinary frequency documented in this encounter [employer] Phone: evalkputxi note* Diagnosis MRSA (methicillin resistant Staphylococcus aureus) septicemia (HCC) Methicillin resistant staphylococcus aureus septicemia documented in this encounter [facility] noteNo assessment information availableMer[facility] Work Phone: Evaluation note* Diagnosis Fatigue, unspecified type Encounter for screening for HIV Mixed hyperlipidemia Hyperglycemia Other abnormal glucose Chronic renal impairment, stage 3b (HCC) documented in this encounter [employer] Phone: evalxjfqyt note* Diagnosis Acute cystitis with hematuria Acute cystitis documented in this encounter [employer] Phone: evaluation note* Diagnosis Neck mass Swelling, mass, or lump in head and neck documented in this encounter [employer] Phone: evaluation note* Diagnosis Pain of foot, unspecified laterality Closed nondisplaced fracture of second metatarsal bone of left foot, initial encounter Closed nondisplaced fracture of lateral cuneiform of left foot, initial encounter documented in this encounter [employer] Phone: evalouyqyw note* Diagnosis Foreign body (FB) in soft tissue Residual foreign body in soft tissue documented in this encounter [employer] Phone: evaluation note* Diagnosis Pelvic pressure in female Other specified symptom associated with female genital organs documented in this encounter [employer] Phone: evalmdjzau note* Diagnosis Charcot arthropathy of midfoot- Primary Gastrocnemius equinus, unspecified laterality Foot pain, left Pain in soft tissues of limb [facility] Diagnosis Mixed hyperlipidemia documented in this encounter [facility] [place] [facility]* Diagnosis Idiopathic progressive polyneuropathy Non-seasonal allergic rhinitis due to pollen documented in this encounter [facility] HealthcareEvaluation note* Diagnosis Thyroid nodule Nontoxic uninodular goiter documented in this encounter [employer] note* Diagnosis Thyroid nodule- Primary Nontoxic uninodular goiter [facility]* Diagnosis BUCK on CPAP- Primary 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 (CMS/HCC) Restless legs Restless legs syndrome (RLS) Bilateral carpal tunnel syndrome Carpal tunnel syndrome documented in this encounter [facility] HealthcareEvaluation note* Diagnosis Idiopathic progressive polyneuropathy- Primary Bilateral carpal tunnel syndrome Carpal tunnel syndrome Restless legs Restless legs syndrome (RLS) Intractable 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 (CMS/HCC) documented in this encounter [facility] HealthcareEvaluation note* Diagnosis BUCK (obstructive sleep apnea) Obstructive sleep apnea (adult) (pediatric) Hypersomnia Hypersomnia, unspecified Snoring Other dyspnea and respiratory abnormality Class 2 obesity due to excess calories with body mass index (BMI) of 38.0 to 38.9 in adult, unspecified whether serious comorbidity present documented in this encounter [facility] HealthcareEvaluation note* Diagnosis Idiopathic progressive polyneuropathy Non-seasonal allergic rhinitis due to pollen documented in this encounter [facility] HealthcareEvaluation note* Diagnosis Thyroid nodule- Primary Nontoxic uninodular goiter Lipoma of neck [facility]* Diagnosis 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 (CMS/HCC) documented in this encounter [facility] HealthcareEvaluation note* Diagnosis BUCK on CPAP- Primary Idiopathic progressive polyneuropathy Restless legs Restless legs syndrome (RLS) Intractable 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 (CMS/HCC) documented in this encounter [facility] HealthcareEvaluation note* Diagnosis Pre-diabetes Other abnormal glucose Mixed hyperlipidemia [facility] Diagnosis BUCK (obstructive sleep apnea)- Primary Obstructive sleep apnea (adult) (pediatric) BUCK on CPAP Claustrophobia (CMS/HCC) Other isolated or specific phobias documented in this encounter [facility] HealthcareEvaluation note* Diagnosis BUCK (obstructive sleep [...] apnea (adult) (pediatric) documented in this encounter [facility] HealthcareEvaluation note* Diagnosis BUCK (obstructive sleep apnea)- Primary Obstructive sleep apnea (adult) (pediatric) BUCK on CPAP Claustrophobia Other isolated or specific phobias BUCK (obstructive sleep apnea)- Primary Obstructive sleep apnea (adult) (pediatric) Claustrophobia Other isolated or specific phobias Hypersomnia Hypersomnia, unspecified documented in this encounter [facility]* Diagnosis BUCK (obstructive sleep apnea)- [...] Generalized edema Edema documented in this encounter [facility] HealthcareEvaluation note* Diagnosis BUCK (obstructive sleep apnea)- [...] foot, initial encounter documented in this encounter [facility] HealthcareEvaluation note* Diagnosis BUCK (obstructive sleep apnea)- Primary Obstructive sleep apnea (adult) (pediatric) BUCK on CPAP Claustrophobia Other isolated or specific phobias BUCK (obstructive sleep apnea)- Primary Obstructive sleep apnea (adult) (pediatric) Claustrophobia Other isolated or specific phobias Hypersomnia Hypersomnia, unspecified BUCK (obstructive sleep apnea)- Primary Obstructive sleep apnea (adult) (pediatric) Cervical paraspinal muscle spasm Spasm of muscle Cervical radiculopathy Brachial neuritis or radiculitis nos documented in this [facility] [facility] instructions* Attachments The following attachments cannot be sent through Care Everywhere. * Diabetic Foot Ulcer (Rwandan) documented in this encounterBon [facility] for [facility] Narrative* Other (Routine) - Closed Specialty Diagnoses / Procedures Referred By Contac t Referred To Contact Radiology Diagnoses Encounter for screening mammogram for malignant neoplasm of breast Procedures NITA BRIAN DIGITAL SCREEN BILATERAL Back, MD Felipe [address] [place] [address] Phone: tel: fax: Referral ID Status Reason Start Date Expiration Date Visits Re quested Visits Authorized [id number] Closed 01/29/2025 01/29/2026 1 1 [facility] N[facility]* Imaging (Emergency) - Pending Review Specialty Diagnoses / Procedures Referred By Contac t Referred To Contact Radiology Diagnoses Pain in right foot Procedures MRI FOOT RIGHT W WO CONTRAST Robbin Sánchez, DPM [address] [facility], [place] [address] Phone: tel: fax: Referral ID Status Reason Start Date Expiration Date V isits Requested Visits Authorized [id number] Pending Review 04/11/2025 04/10/2026 1 1 [facility] Summary Purpose Family History No Family History [...] FoundDocuments on File Type Date Recorded Patient Ship Keeper Expl anation Advance Directives and Living Will Power of Still Tender Latest Code Status on File Code Status Date Activated Date Inactivated Comments Full Code 08/15/2018 4:17 PM 08/25/2018 8:55 PM Full Code 03/19/2017 1:37 PM 03/19/2017 4:32 PM Full Code 03/19/2017 10:57 AM 03/19/2017 1:37 PM Full Code 03/05/2017 12:56 PM 03/05/2017 3:55 PM Full Code 03/05/2017 10:05 AM 03/05/2017 12:56 PM Documents on File Type Date Recorded Patient Ship Keeper Expl anation ACP-Advance Directive ACP-Power of Still Tender Documents on File Type Date Recorded Patient Ship Keeper Expl anation ACP-Advance Directive ACP-Power of Still Tender Latest Code Status on File Code Status [...] Everywhere. * Back Care Basics: General Info (Rwandan) * Back: Preventing Injuries (Rwandan) documented in this encounter Reason for Referral Status Reason Specialty Diagnoses / Procedures Referre d By Contact Referred To Contact Closed Radiology Diagnoses Brachial neuritis Peripheral nerve disorder Spasm of muscle Procedures MR Cervical Spine Without Contrast Tiffanie Casas MD [address] [place] [address] Specialty Diagnoses / Procedures Referred By Contac t Referred To Contact Radiology Diagnoses Neck mass Procedures US HEAD NECK SOFT TISSUE THYROID Felipe Adam MD [address] [place] [address] Referral ID Status Reason Start Date Expiration Date Visits Re quested Visits Authorized [id number] Closed 05/27/2022 05/27/2023 1 1 Specialty Diagnoses / Procedures Referred By Contac t Referred To Contact Radiology Diagnoses Thyroid nodule Procedures US THYROID Jair, MD Felipe [address] [place] [address] Referral ID Status Reason Start Date Expiration Date V isits Requested Visits Authorized [id number] Pending Review 09/06/2024 08/26/2025 1 1 Chief Complaint and Reason for Visit Chief Complaint M54.16 M79.10 M79.60 9 R20.9 Chief Complaint Unknown Additional Source Comments INFORMATION SOURCE (unrecogn ized section and content) DATE CREATED AUTHOR 03/30/2018 [facility] DATE CREATED AUTHOR AUTHOR'S ORGANIZ ATION 03/30/2018 [facility] DATE CREATED AUTHOR AUTHOR'S ORGANIZ ATION 09/15/2018 [facility] DATE CREATED AUTHOR AUTHOR'S ORGANIZ ATION 09/23/2018 [facility] DATE CREATED AUTHOR AUTHOR'S ORGANIZ ATION 09/26/2018 [facility] DATE CREATED AUTHOR AUTHOR'S ORGANIZ ATION 12/10/2018 [facility] DATE CREATED AUTHOR AUTHOR'S ORGANIZ ATION 12/18/2018 [facility] DATE CREATED AUTHOR AUTHOR'S ORGANIZ ATION 02/11/2019 [facility] DATE CREATED AUTHOR AUTHOR'S ORGANIZ ATION 11/30/2021 [facility] DATE CREATED AUTHOR AUTHOR'S ORGANIZ ATION 05/01/2022 [facility] DATE CREATED AUTHOR AUTHOR'S ORGANIZ ATION 01/12/2023 [facility] DATE CREATED AUTHOR AUTHOR'S ORGANIZ ATION 02/15/2023 [facility] DATE CREATED AUTHOR AUTHOR'S ORGANIZ ATION 04/04/2023 [facility] DATE CREATED AUTHOR AUTHOR'S ORGANIZ ATION 02/20/2024 [facility] DATE CREATED AUTHOR AUTHOR'S ORGANIZ ATION 10/17/20[facility] DATE CREATED AUTHOR AUTHOR'S ORGANIZ ATION 02/14/2025 Declan Menjivar [facility] DATE CREATED AUTHOR AUTHOR'S ORGANIZ ATION 05/16/2025 [facility] DATE CREATED AUTHOR AUTHOR'S ORGANIZ ATION 2025 [facility] d[facility] Specialists EPIC Reason for Visit (unrecogniz ed section and content) Reason Comments Sleep Apnea Specialty Diagnoses / Procedures Referred By Thor bernal Referred To Contact Neurology Diagnoses BUCK on CPAP Procedures MD OFFICE/OUTPATIENT NEW HIGH MDM 60 MINUTES Fozia Meng, LOBBY CONCIERGE [address], [address] [phone] Phone: tel: fax: Lynn Block MD [address] [facility] [address] [place] [address] Phone: tel: fax: Referral ID Status Reason Start Date Expiration Date V isits Requested Visits Authorized [id number] Closed Specialty Services Required 11/14/2024 05/13/2025 1 1 Status Reason Specialty Diagnoses / Procedures Referre d By Contact Referred To Contact Closed Radiology Diagnoses Brachial neuritis Peripheral nerve disorder Spasm of muscle Procedures MR Cervical Spine Without Contrast Tiffanie Casas MD [address] [facility] [address] [place] [address] Specialty Diagnoses / Procedures Referred By Contac t Referred To Contact Occupational Therapy Diagnoses Carpal tunnel syndrome Carpal Tunnel Syndrome Procedures Eval and treat Keenan Lozano MD [address] [facility] [address] [place] [address] [facility] [address] [place] [address] Referral ID Status Reason Start Date Expiration Date Visits Re quested Visits Authorized [id number] Open 12/19/2021 12/19/2022 1 1 Specialty Diagnoses / Procedures Referred By Contac t Referred To Contact Physical Therapy Diagnoses Radiculopathy, lumbar region Lumbar Radiculopathy Procedures Eval and treat Janel Allen, PILEDRIVER CARPENTER - PART TIME RECEPTIONIST [address] [address] [facility] [address] [place] [address] Referral ID Status Reason Start Date Expiration Date Visits Re quested Visits Authorized [id number] Open 12/19/2021 12/19/2022 1 1 Specialty Diagnoses / Procedures Referred By Contac t Referred To Contact Radiology Diagnoses Neck mass Procedures US HEAD NECK SOFT TISSUE THYROID Back, MD Felipe [address] [place] [address] Referral ID Status Reason Start Date Expiration Date Visits Re quested Visits Authorized [id number] Closed 05/27/2022 05/27/2023 1 1 Specialty Diagnoses / Procedures Referred By Contac t Referred To Contact Radiology Diagnoses Pain of foot, unspecified laterality Closed nondisplaced fracture of lateral cuneiform of left foot, initial encounter Procedures MRI FOOT LEFT W WO CONTRAST MRI FOOT LEFT W WO CONTRAST Robbin Sánchez, DPM [address] [facility], [address] [place] [id number] Referral ID Status Reason Start Date Expiration Date Visits Re quested Visits Authorized [id number] Closed 06/20/2022 06/20/2023 1 1 Reason Comments Education Class Specialty Diagnoses / Procedures Referred By Contac t Referred To Contact Diabetes Services Diagnoses Pre-diabetes Felipe Adam MD [address] [place] [address] [facility] [address] [place] [address] Referral ID Status Reason Start Date Expiration Date V isits Requested Visits Authorized [id number] Open Specialty Services Required 06/30/2022 06/30/2023 2 2 Specialty Diagnoses / Procedures Referred By Contac t Referred To Contact Diabetes Services Diagnoses Pre-diabetes Felipe Adam MD [address] [place] [address] [facility] [address] [place] [address] Reason Comments Other Left foot charcot on -going since 06/2022. New x-rays today. 2nd of opinion. Specialty Diagnoses / Procedures Referred By Contac t Referred To Contact Radiology Diagnoses Thyroid nodule Procedures US THYROID Felipe Adam MD [address] [place] [address] Referral ID Status Reason Start Date Expiration Date V isits Requested Visits Authorized [id number] Pending Review 09/06/2024 08/26/2025 1 1 Reason Onset Date Comments Med Refill 10/05/2024 Reason Comments New Patient FNA - THYROID NODULE Specialty Diagnoses / Procedures Referred By Thor t Referred To Contact Otolaryngology Diagnoses Thyroid nodule Felipe Adam MD [address] [place] [address] Phone: tel: fax: Sherman Adair MD [address] [address] Phone: tel: fax: Referral ID Status Reason Start Date Expiration Date V isits Requested Visits Authorized [id number] Pending Review 09/09/2024 09/09/2025 1 1 Reason [...] Care Teams (unrecognized sec tion and content) Truck Loader Relationship Specialty Start Date End Date Back, MD Felipe [address] [place] [address] PCP - General Internal Medicine 11/14/11 Truck Loader Relationship Specialty Start Date End Date Back, MD Felipe [address] [place] [address] PCP - General Internal Medicine 11/14/11 Truck Loader Relationship Specialty Start Date End Date Back, MD Felipe [address] [place] [address] PCP - General Internal Medicine 11/14/11 Truck Loader Relationship Specialty Start Date End Date Back, MD Felipe [address] [place] [address] PCP - General Internal Medicine 11/14/11 Truck Loader Relationship Specialty Start Date End Date Back, MD Felipe [address] [place] [address] PCP - General Internal Medicine 11/14/11 Truck Loader Relationship Specialty Start Date End Date Back, MD Felipe [address] [place] [address] PCP - General Internal Medicine 11/14/11 Truck Loader Relationship Specialty Start Date End Date Back, MD Felipe [address] [place] [address] PCP - General Internal Medicine 11/14/11 Team Status: Inactive Member Role Status Dates NON STAFF Primary Care Provider Active Tiffanie Casas MD Attending Provider Active Team Status: Active Member Role Status Dates NON STAFF Primary Care Provider Active Truck Loader Relationship Specialty Start Date End Date Back, MD Felipe [address] [place] [address] PCP - General Internal Medicine 11/14/11 Truck Loader Relationship Specialty Start Date End Date Back, MD Felipe [address] [place] [address] PCP - General Internal Medicine 11/14/11 Truck Loader Relationship Specialty Start Date End Date Back, MD Felipe [address] [place] [address] PCP - General Internal Medicine 11/14/11 Truck Loader Relationship Specialty Start Date End Date Back, MD Felipe [address] [place] [address] PCP - General Internal Medicine 11/14/11 Truck Loader Relationship Specialty Start Date End Date Back, MD Felipe [address] [place] [address] PCP - General Internal Medicine 11/14/11 Truck Loader Relationship Specialty Start Date End Date Back, MD Felipe [address] [place] [address] PCP - General Internal Medicine 11/14/11 Truck Loader Relationship Specialty Start Date End Date Back, MD Felipe [address] [place] [address] PCP - General Internal Medicine 11/14/11 Truck Loader Relationship Specialty Start Date End Date Back, MD Felipe [address] [facility], [place] [address] PCP - General Internal Medicine 11/14/11 Truck Loader Relationship Specialty Start Date End Date Back, MD Felipe [address] [facility], [place] [address] PCP - General Internal Medicine 03/26/15 Truck Loader Relationship Specialty Start Date End Date Back, MD Felipe [address] [facility], [place] [address] PCP - General Internal Medicine 11/14/11 Team Status: Inactive Member Role Status Dates Frances Harris DPM [place] Attending Provider Active Start: February 15, 2024 End: February 15, 2024 Truck Loader Relationship Specialty Start Date End Date Back, MD Felipe [address] [place] [address] PCP - General Internal Medicine 11/14/11 Truck Loader Relationship Specialty Start Date End Date Back, MD Felipe [address] [place] [address] PCP - General Internal Medicine 11/14/11 Truck Loader Relationship Specialty Start Date End Date Back, MD Felipe [address] [place] [address] PCP - General Internal Medicine 03/26/15 Truck Loader Relationship Specialty Start Date End Date Back, MD Felipe [address] [place] [address] PCP - General Internal Medicine 03/26/15 Truck Loader Relationship Specialty Start Date End Date Back, MD Felipe [address] [place] [address] PCP - General Internal Medicine 11/14/11 Truck Loader Relationship Specialty Start Date End Date Back, MD Alcides [address] [facility], [place] [address] PCP - General Family Medicine 12/08/24 Truck Loader Relationship Specialty Start Date End Date Back, MD Alcides [address] [facility], [place] [address] PCP - General Family Medicine 12/08/24 Truck Loader Relationship Specialty Start Date End Date Back, MD Felipe [address] [place] [address] PCP - General Internal Medicine 11/14/11 Truck Loader Relationship Specialty Start Date End Date Back, MD Alcides [address] [place] [address] PCP - General Family Medicine 12/08/24 Truck Loader Relationship Specialty Start Date End Date Back, MD Felipe [address] [place] [address] PCP - General Internal Medicine 11/14/11 Truck Loader Relationship Specialty Start Date End Date Back, MD Alcides [address] [place] [address] PCP - General Family Medicine 12/08/24 Truck Loader Relationship Specialty Start Date End Date Back, MD Alcides [address] [facility], [place] [address] PCP - General Family Medicine 12/08/24 Truck Loader Relationship Specialty Start Date End Date Back, MD Alcides [address] [place] [id number] PCP - General Family Medicine 12/08/24 Truck Loader Relationship Specialty Start Date End Date Back, MD Alcides [address] [facility], [place] [address] PCP - General Family Medicine 12/08/24 Truck Loader Relationship Specialty Start Date End Date Back, MD Felipe [address] [facility], [facility] PCP - General Internal Medicine 11/14/11 Truck Loader Relationship Specialty Start Date End Date Back, MD Felipe [address] [place] [address] PCP - General Internal Medicine 11/14/11 Truck Loader Relationship Specialty Start Date End Date Back, MD Alcides [address] [place] [address] PCP - General Family Medicine 12/08/24 Truck Loader Relationship Specialty Start Date End Date Back, MD Felipe [address] [place] [id number] PCP - General Internal Medicine 11/14/11 Truck Loader Relationship Specialty Start Date End Date Back, MD Alcides [address] [place] [id number] PCP - General Family Medicine 12/08/24 Truck Loader Relationship Specialty Start Date End Date Back, MD Alcides [address] [facility], [facility] PCP - General Family Medicine 12/08/24 Goals (unrecognized section and content) Goals may [...] Antimicrobial Indications: Skin and Soft Tissue Infection 2216 (New Bag - Provider: Rebeca Moore RN)2320 (Stopped - Provider: Rebeca Moore RN) clindamycin (CLEOCIN) 600 mg in sodium chloride 0.9 % 50 mL IVPB (COMPLETED) 600 mg, IntraVENous, ONCE, 1 dose, On Thu04/04/25 at 2200, Antimicrobial Indications: Skin and Soft Tissue Infection 2322 (New Bag - Provider: Rebeca Moore RN - Comment: right medication, dosage of medication and mixture verified with MANINDER Hoang.)2354 (Stopped - Provider: Rebeca Moore RN) sodium chloride 0.9 % bolus 1,000 mL (COMPLETED) 1,000 mL (10.3 mL/kg), IntraVENous, at 1,935.5 mL/hr, Administer over 31 Minutes, ONCE, On Thu04/04/25 at 2200, For 1 dose 2211 (New Bag - Provider: Rebeca Moore RN)2316 [...] BE BASED ON THE PRIMARY CLINICAL RECORDS. [facility]. provides no warranty or guarantee of the accuracy or completeness of information in this document.
[2025-05-31 09:24] LABS: Hematocrit 31.5 % (36.0-48.0); Hemoglobin 9.9 g/dL (12.0-16.0); Immature Granulocytes Abs Auto 0.13 10^3/uL (0.00-0.03); Immature Granulocytes Pct Auto 3.1 % (0.0-0.5); Lymphocytes Absolute Auto 1.1 10^3/uL (1.2-3.8); Mean Corpuscular HGB Conc 31.4 g/dL (29.9-35.2); Mean Corpuscular Hemoglobin 28.9 pg (26.7-34.0); Mean Corpuscular Volume 92.1 fL (81.0-99.0); Platelet Count 158 10^3/uL (150-450); Red Blood Count 3.42 10^6/uL (4.20-5.40); White Blood Count 4.2 10^3/uL (4.0-11.0)
[2025-05-31 09:41] LABS: Anion Gap 13.7; Blood Urea Nitrogen 23.0 mg/dL (7.0-18.0); Calcium 9.0 mg/dL (8.5-10.1); Carbon Dioxide 28.6 mmol/L (21.0-32.0); Chloride 102 mmol/L (98-107); Estimated GFR (African America >60 (>=60 mL/min/1.73m^2); Estimated GFR (Non-African Ame 50 (>=60 mL/min/1.73m^2); Glucose 185 mg/dL (74-106); Potassium 4.3 mmol/L (3.5-5.1); Sodium 140 mmol/L (136-145)
== END 2025-05-31 09:10 | disposition home or self-care (01) ==
LOC: LAB 09:10
PROVIDERS: PCP Internal Medicine; Visit Provider Physician Assistant
DX: M86.171 Other acute osteomyelitis, right ankle and foot (principal); E11.621 Type 2 diabetes mellitus with foot ulcer; L97.422 Non-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 with fat layer exposed; L97.515 Non-pressure chronic ulcer of other part of right foot with muscle involvement without evidence of necrosis
CPT/HCPCS: 11042; 36415; 80048; 85025; 85652; 86140

== ENCOUNTER 2025-05-31 09:50 | Outpatient (OUT) | payer OTHER, SELFPAY ==
--- OUTSIDE RECORDS SUMMARY | 2025-05-24 11:30 | XMS_ITS | Encounter Summary ---
Author Organization [facility] Address [address] [facility] [place] [address] Care Team Providers Care Floor Tiling Professional Name Role Phone Alcides Adam MD Primary Care Provider [phone] Reason for Referral * Rehabilitation - Outpatient (Routine) - Pending Review Specialty Diagnoses / Procedures Referred By Thor bernal Referred To Contact Physical Therapy Diagnoses Cervical radiculopathy Procedures [place] OFFICE[facility]PATIENT [facility] 60 MINUTES Jennie Barajas APRN-CNP [address] [place] [address] Phone: tel: fax: [facility] [address] [place] [address] Phone: tel: fax: Referral ID Status Reason Start Date Expiration Date Visits Requested Visits Authorized [id number] Pending Review Specialty Services Required 05/24/2025 11/20/2025 1 1 Encounter Details Date Type Department Care Team (Latest Contact Info) Description 05/24/2025 11:30 AM EDT Office Visit [facility] [address] [facility] [place] [phone] Jennie Barajas APRN-CNP [address] [place] [address] BUCK (obstructive sleep apnea) (Primary Dx); Cervical paraspinal muscle spasm; Cervical radiculopathy Social History Tobacco Use Types Packs/Day Years [...] Sign Reading Time Taken Comments Blood Pressure 120/80 05/24/2025 11:47 AM EDT Pulse - - Temperature - - Respiratory Rate 18 05/24/2025 11:47 AM EDT Oxygen Saturation 98% 05/24/2025 11:47 AM EDT Inhaled Oxygen Concentration - - Weight 95.3 kg (210 lb) 05/24/2025 11:47 AM EDT Height 157.5 cm (5' 2 ) 05/24/2025 11:47 AM EDT Body Mass Index 38.41 05/24/2025 11:47 AM EDT documented in this encounter Progress Notes * Jennie Barajas APRN-ART PROFESSOR - 05/24/2025 11:30 AM EDT Images from the original note were not included. Visit Summary: Celina Egan, a pre-diabetic female with Charcot joints in both ankles/feet, presented with right foot MRSA infection, cervical stenosis, bilateral hand numbness/tingling and muscle spasms. Her medical history includes BUCK requiring CPAP (currently using 3.5 hours nightly with Xanax for claustrophobia), neuropathy, and cervical radiculopathy. Her A1C increased from 5.1 to 5.8 despite Farxiga and carbohydrate restriction. Management included baclofen refill for muscle spasms, ordering a TENS/IFC machine, cervical spine X-ray to reassess Cervical stenosis C6-7, and consideration of physical therapy for gait improvement. Follow-up planned with specialists for foot and sleep issues. Subjective Celina Egan is a 44 y.o. female who presents for BUCK (uses Cpap) and charcot joint of left ankle/foot. Patient had OV with Dr Block for BUCK 03/14/25 and started on Xanax for claustrophobia. Ms. Celina Egan is a pre-diabetic patient with a history of Charcot joints, obstructive sleep apnea, and recent MRSA infection presenting with complaints of cervical spasms and hand numbness and tingling. Celina reports an MRSA infection in her right foot that spread to the bone, requiring surgery and resulting in a blister from knee scooter use. She has Charcot joints limiting mobility and experiences neuropathy causing leg shaking that impacts sleep. Regarding BUCK, she started Xanax for CPAP-related claustrophobia and currently uses CPAP for 3.5 hours nightly. She reports neck pain with numbness and tingling radiating from ear to fingers along C5-6, C6-7 dermatome. She requires refills for baclofen and pregabalin for muscle spasms and neuropathic pain. She is following a weight loss plan with carbohydrate restriction and taking Farxiga for pre-diabetes, with A1C recently increasing from 5.1 to 5.8. Medical history includes obstructive sleep apnea, pre-diabetes, Charcot joints, neuropathy, and cervical disc issues with mild spinal canal stenosis. Current medications include Farxiga, Xanax, baclofen, and pregabalin. History of Present Illness The patient states that her left ankle/foot has a wound, began as a 'water blister'- she is non weight bearing on this foot. On ATB's for this. Patient is following alfred Chase for the wound and a reconstruction surgery on this foot. She now has charcot in the right foot with an MRSA wound and this is currently in a boot. She states that migraines/headaches are stable. She states that she has approximately 1-2 headaches per week. Of those, 1 will be a migraine. Review of Systems Constitutional: Negative for chills, fatigue and fever. HENT: Negative for tinnitus. Eyes: Negative for photophobia. Respiratory: Negative for shortness of breath. Cardiovascular: Negative for chest pain. Gastrointestinal: Negative for nausea and vomiting. Genitourinary: Negative for frequency. Musculoskeletal: Negative for back pain, gait problem and neck pain. Neurological: Negative for dizziness, tremors, weakness, light-headedness, numbness and headaches. Psychiatric/Behavioral: Negative. Neurological Exam Mental Status Awake, alert and [...] Normal muscle bulk throughout. Normal muscle tone. Strength is 5/5 in all four extremities except as noted. Right Left Neck flexion 4 Neck extension 4 Wrist flexion 5 5 Wrist extension 5 [...] 2+ Biceps 2+ 2+ Patellar 2+ 2+ Right pathological reflexes: Goyo's absent. Ankle clonus absent. Left pathological reflexes: Goyo's absent. Ankle clonus absent. Coordination Oxminz-id-qrry, rapid alternating movements and fcgq-pk-webt normal bilaterally without dysmetria. Gait Casual gait: Romberg is absent. Currently has elias boot on right foot and wrap on left . Procedures Objective There were no vitals taken for this visit. Diagnostic Test Results: Hemoglobin A1c: 5.8%. Previous results: Hemoglobin A1c: 5.1. MRI and X-rays of neck (2019): Disc osteophyte complexes at C4-C5-6, most prominently at C6-7. Mildspinal canal stenosis. Possible focal hyperintensity at T2 signal at C6-7. Physical Exam Results Assessment & Plan 1. Cervical Spine Issues - Assessment: Patient reports neck spasms and tightness. MRI and X-rays from 2019 show disc osteophyte complexes at C4-C5-6, most prominently at C6-7, with mild spinal canal stenosis and possible focal hyperintensity at T2 signal at C6- 7. Patient experiences numbness and tingling from the ear down to the middle and other fingers, following the C5-6, C6-7 dermatome. . - Plan: - Order cervical spine X-ray f/e to reassess C6-7; Evaluate X-ray results for any changes - Refer to PT for strengthening and conditioning - Educate patient on cervical spine exercises and proper ergonomics 2. Muscle spasm/Neuropathy - Assessment: Patient reports leg shaking due to neuropathy until falling asleep. Currently taking pregabalin and baclofen for management of neuropathic pain and muscle spasms in neck, back and legs.Patient has one refill left on pregabalin. - Plan: - Refill baclofen as requested - Order Zynex ZX-10 TENS machine for muscle problems - Educate patient on proper use of TENS machine - Continue pregabalin/baclofen 3. Obstructive Sleep Apnea - Assessment: Patient has diagnosed BUCK and uses a CPAP machine. Recently started Xanax for claustrophobia related to CPAP use about a month ago. Patient reports difficulty maintaining CPAP use, averaging only 3.5 hours per night due to mask falling off and restlessness from neuropathy. - Plan: - Continue current CPAP therapy - Monitor efficacy of Xanax for claustrophobia - Educate patient on proper CPAP mask fitting and positioning - Consider sleep study to reassess BUCK severity and treatment efficacy - Follow up with Dr. Block 4. Charcot Joints (Ankles and Feet) - Assessment: Patient has a history of Charcot joints in both ankles and feet. The right foot recently underwent surgery due to MRSA infection that spread to the bone. Patient reports using a knee scooter post-surgery, which led to blister formation. Patient experiences gait instability, describingherself as clumsy, but has been working on improving this. No falls reported. - Plan: - Consider physical therapy for gait improvement and upper body exercises - Educate patient on importance of post-surgical rehabilitation - Follow up with Dr. Chase regarding post-surgical care - Continue current management plan documented in this encounter Plan of Treatment Upcoming Encounters Date Type Department Care Team (Late st Contact Info) Description 08/23/2025 1:00 PM EST Office Visit [facility] [address] [place] [address] Jennie Barajas, FINANCIAL REPORT SERVICE SALES AGENT-ART PROFESSOR [address] [facility] [place] [address] Scheduled Referrals Name Type Priority Associated Diagnoses Orde r Schedule Ambulatory referral to Physical Therapy Outpatient Referral Routine Cervical radiculopathy Expected: 05/24/2025 (Approximate), Expires: 11/24/2025 documented as of this encounter Results * XR cervical spine complete 4 to 5 views (05/24/2025 12:45 PM EDT) Anatomical Region Laterality Modality Spine, C-spine Radiographic Cyndi ging 05/24/2025 3:37 PM EDT Impressions 05/24/2025 3:38 PM EDT No acute osseous abnormality. ELECTRONICALLY SIGNED BY: Gregorio Davila DO Narrative 05/24/2025 3:38 PM EDT EXAMINATION: XR CERVICAL SPINE COMPLETE 4-5 VIEWS TECHNIQUE: 8 views of the cervical spine. CLINICAL HISTORY: Neck pain COMPARISONS: None available. FINDINGS: Mild dextrocurvature. Slight straightening of the cervical lordosis. Cervical vertebral body heights are maintained. Intervertebral disc heights are maintained. The lateral masses of C1 articulate symmetrically with C2. Atlantodental interval is preserved. No fracture or spondylolisthesis. No high-grade osseous neuroforaminal stenosis. Flexion/extension views demonstrate no abnormality. Prevertebral soft tissues have a normal appearance. Procedure Note Gregorio Davila DO - 05/24/2025 EXAMINATION: XR CERVICAL SPINE COMPLETE 4-5 VIEWS TECHNIQUE: 8 views of the cervical spine. CLINICAL HISTORY: Neck pain COMPARISONS: None available. FINDINGS: Mild dextrocurvature. Slight straightening of the cervical lordosis.Cervical vertebral body heights are maintained. Intervertebral discheights are maintained. The lateral masses of C1 articulate symmetricallywith C2. Atlantodental interval is preserved. No fracture orspondylolisthesis. No high-grade osseous neuroforaminal stenosis.Flexion/extension views demonstrate no abnormality. Prevertebral softtissues have a normal appearance. IMPRESSION: No acute osseous abnormality. ELECTRONICALLY SIGNED BY: Gregorio J Lola, DO us Jennie Jenn FINANCIAL REPORT SERVICE SALES AGENT-ART PROFESSOR IMG XR PROCEDURES Lou l Result documented in this encounter Visit Diagnoses Diagnosis BUCK (obstructive sleep apnea)- Primary Obstructive sleep apnea (adult) (pediatric) Cervical paraspinal muscle spasm Spasm of muscle Cervical radiculopathy Brachial neuritis or radiculitis nos Cervical paraspinal muscle spasm Spasm of muscle documented in this encounter Care Teams Floor Tiling Professional Relationship Specialty Start Date End Date Back, MD Alcides [address] [place] [address] PCP - General Family Medicine 12/08/24 documented as of this encounter
--- OUTSIDE RECORDS SUMMARY | 2025-05-24 12:30 | XMS_ITS | Encounter Summary ---
Author Organization [facility] Address [address] [place] [address] Care Team Providers Care Boiler Plant Operator Name Role Phone Alcides Adam MD Primary Care Provider [phone] Encounter Details Date Type Department Care Team (Latest Contact Info) Description 05/24/2025 12:30 PM EDT Ancillary Procedure [facility] [address] [facility] [address] [place] [address] Cervical paraspinal muscle spasm Social [...] PM EST Office Visit [facility] [place] [facility] [place] [facility] [address] [place] [address] Jennie Barajas, MACHINE CONTAINER WASHER-HEADER MACHINE OPERATOR [address] [facility] [address] [place], [place] [id number] documented as of this encounter Procedures Procedure [...] No acute osseous abnormality. ELECTRONICALLY SIGNED BY: rGegorio Davila DO Narrative 05/24/2025 3:38 PM EDT [...] BY: Gregorio Davila DO us Jennie Barajas MACHINE CONTAINER WASHER-HEADER MACHINE OPERATOR IMG XR PROCEDURES Lou l Result documented in this encounter Visit Diagnoses Diagnosis Cervical paraspinal muscle spasm Spasm of muscle documented in this encounter Care Teams Boiler Plant Operator Relationship Specialty Start Date End Date Jair, MD Alcides [address] [place] [address] PCP - General Family Medicine 12/08/24 documented as of this encounter
--- OUTSIDE RECORDS SUMMARY | 2025-05-31 09:53 | XMS_ITS | Encounter Summary ---
Author Organization [facility] Address [address] [place] [address] Care Team Providers Care Commercial Credit Analyst Name Role Phone Alcides Adam MD Primary Care Provider [phone] Encounter Details Date Type Department Care Team (Late Contact Info) Description 05/23/2025 Telephone [facility] [address] [place] [id number] Nash Block MD [address] [place] [address] Social History Tobacco Use Types Packs/Day Years [...] Neurology [address] [place] [phone] Jennie Barajas, GLASS LATHE OPERATOR-STAFF TRAINER [address] [facility] [place] [address] documented as of this encounter Visit Diagnoses Not on filedocumented in this encounter Care Teams Commercial Credit Analyst Relationship Specialty Start Date End Date Back, MD Alcides [address] [place] [address] PCP - General Family Medicine 12/08/24 documented as of this encounter
--- OUTSIDE RECORDS SUMMARY | 2025-05-31 09:53 | XMS_ITS | Encounter Summary ---
Author Organization [facility] Address [address] [place] [address] Care Team Providers Care Visual Designer Name Role Phone Felipe Adam MD Primary Care Provider [phone] Encounter Details Date Type Department Care Team (Late st Contact Info) Description 05/01/2015 Abstract [facility] [address] [place] [phone] Hali Glalegos MA Social History Tobacco Use Types Packs/Day [...] Description 10/12/2025 10:30 AM EST Office Visit [facility] [address] [facility] [place] [address] Dimas Adair MD [facility] [address] [place] [address] documented as of this encounter Visit Diagnoses Not on filedocumented in this encounter Care Teams Visual Designer Relationship Specialty Start Date End Date Back, MD Felipe [address] [place] [id number] PCP - General Internal Medicine 03/26/15 documented as of this encounter
--- OUTSIDE RECORDS SUMMARY | 2025-05-31 09:53 | XMS_ITS | Continuity of Care Document ---
Author Organization [facility] Address [address] [place] [address] Phone [phone] Care Team Providers Care Document Processor Name Role Phone Back, Alcides MELENDREZ Care Team Information Plant Operations Worker [phone] Problems Active Problems Provider Date Chronic kidney disease stage 3 Nate Villar Onset: 06/09/2014 Chronic glomerulonephritis Doug Klein M.D. O nset: 06/09/2014 Non-steroidal anti-inflammatory agent Doug carlson M.D. Onset: 06/09/2014 Pyelonephritis Heather Forbes M.D. Onset: 04/06 Pure hyperglyceridemia Heathre Forbes M.D. Onse t: 05/04/2018 Gastroesophageal reflux [...] Test Result H/L Range Note .Magnesium 05/10/2024 [place] .Magnesium 2.2 .Urine Protein/Creat. Random 05/10/2024 [place] .Urine Protein Random 9 .Urine Creatini ne Random 132.0 .Urine Prot/Cre at Ratio 0.07 .Renal Panel 05/10/2024 [place] .Albumin 4.2 .Calcium 9.2 .Carbon Dioxide 25 .Chloride 101 .Phosphorus 3.8 .Potassium 4.0 .Sodium 141 .BUN 19 .GFR 52 High 20 .Creatinine-LC 1.3 .Urinalysis-Rout ine 05/10/2024 [place] Ua Specific [place] 1.020 Ua PH Test Strip 5.0 Ua Color yellow Ua Appearance clear Ua Protein trace Ua Glucose negative Ua Ketones negative Ua Bilirubin negative Ua Urobilinogen normal Ua Nitrite negative Ua Occult Blood negative .Renal Panel 05/17/2023 [place] .Albumin 4.1 .Calcium 9.5 .Carbon Dioxide 29 .Chloride 101 .Phosphorus 3.0 .Potassium 4.3 .Sodium 137 .BUN 17 .GFR >60 High 20 .Creatinine-LC 1.1 .Urine Protein/Creat. Random 05/17/2023 [place] .Urine Protein Random 10 .Urine Creatini ne Random 146.1 .Urine Prot/Cre at Ratio 0.07 .Ipth 05/17/2023 [place] .Ipth 47.1 .Vitamin D, 25 Hydroxy 05/17/2023 [place] .Vitamin D, 25 Hydroxy 53.1 .T-Sat-LC 05/20/2022 [place] .T-Sat-LC 0.18 .Tibc-LC 05/20/2022 [place] .Tibc-LC 263 .Ferritin 05/20/2022 [place] .Ferritin 164 .Iron 05/20/2022 [place] .Iron 48 .Transferrin-LC 05/20/2022 [place] .Transferrin-LC 280 .V Ipth-Vitamin D 05/20/2022 [place] .Ipth 39.91 .Vitamin D, 25 Hydroxy 35.3 .Magnesium 05/20/2022 [place], [place] [phone] .Magnesium 2.1 .Urine Protein/Creat. Random 05/20/2022 [place], [place] [phone] .Urine Protein Random 7 .Urine Creatini ne Random 97.1 .Urine Prot/Cre at Ratio 0.07 .Hemoglobin And Hematocrit 05/20/2022 [place], [place] [phone] .Hemoglobin Blood 11.1 .Hematocrit 33.3 .Renal Panel 05/20/2022 [place] .Albumin 4.4 .Calcium 10.0 .Carbon Dioxide 30 .Chloride 105 .Phosphorus 3.8 .Potassium 4.3 .Sodium 144 .BUN 18 .GFR 53 High 20 .GFR 53 High 20 .Creatinine-LC 1.13 .Renal Panel (Other Labs) 05/21/2021 [place], [place] [phone] .Albumin 4.2 .Calcium 9.2 .Carbon Dioxide 25 .Chloride 103 .Creatinine-LC 1.18 .Phosphorus 3.7 .Sodium 138 .BUN 19 .GFR 50 High 20 .Potassium 4.2 .Urine Protein/Creat. Random 05/21/2021 [place], [place] [phone] .Urine Protein Random 7 .Urine Creatini ne Random 115.7 .Magnesium 05/21/2021 [place] .Magnesium 2.2 .Urinalysis-Rout ine 05/21/2021 [place], [place] [phone] Ua Specific [place] 1.020 Ua PH Test Strip 5.0 Ua Color YELLOW Ua Appearance CLEAR Ua Protein TRACE Ua Glucose NEGATIVE Ua Ketones NEGATIVE Ua Urobilinogen NORMAL Ua Occult Blood NEGATIVE .Urine Protein/Creat. Random 05/25/2020 [place] .Urine Protein Random 8 .Urine Creatini ne Random 101.2 .Urine Prot/Cre at Ratio 0.08 .Ua 05/25/2020 [place] Ua Appearance clear Ua Bilirubin - Ua Blood - Ua Color yellow Ua Glucose 100mg/dl Ua Leuko - Ua Nitrite - Ua PH Test Strip 6.0 Ua Protein - Ua Specific [place] 1.020 Ua Urobilinogen - .Renal Panel 05/25/2020 [place] .Albumin 4.4 .Calcium 10.1 .Carbon Dioxide 26 .Chloride 104 .Creatinine-LC 1.37 .Phosphorus 87 .Sodium 140 .BUN 24 .GFR-LC 43 High 20 .Potassium 4.6 .Ua 06/17/2019 [place] Ua Appearance HAZY Ua Bacteria 1+ Ua Bilirubin NEG Ua Blood NEG Ua Color YELLOW Ua Epithelial Cells QL 2-5 Ua Glucose NEG Ua Ketones NEG Ua Leuko NEG Ua Nitrite NEG Ua PH Test Strip 6.0 Ua Protein TRACE Ua Specific [place] 1.025 Ua Urobilinogen NORMAL Ua WBC 0-2 .Urine Protein/Creat. Random 06/17/2019 [place] .Urine Protein Random 18 .Urine Creatini ne Random 228.2 .Urine Prot/Cre at Ratio 0.08 .Magnesium 06/17/2019 [place], [place] [phone] .Magnesium 2.3 .Hemoglobin And Hematocrit 06/17/2019 [place] .Hemoglobin Blood 12.1 .Hematocrit 35.4 .Renal Panel 06/17/2019 [place], [place] [phone] .Albumin 4.3 .Calcium 10.4 .Carbon Dioxide 24 .Chloride 103 .Creatinine-LC 1.27 .Phosphorus 3.0 .Sodium 140 .BUN 18 .GFR-LC 47 High 20 .Potassium 3.8 .Renal Panel -LC 04/14/2018 [place], [place] [phone] .Albumin 3.7 .Calcium 8.9 .Carbon Dioxide 30 .Chloride 101 .Creatinine-LC 1.28 .Phosphorus 3.6 .Sodium 140 .BUN 19 .GFR-LC 47 High 20 .Potassium 4.1 .Urine Protein/Creat. Random 04/14/2018 [place] .Urine Protein Random 7 .Urine Creatini ne Random 100.7 .Urine Prot/Cre at Ratio 0.07 .CBC W/Differential 04/14/2018 [place] .White Blood Count 8.6 .Red Blood Count 4.40 .Hemoglobin Blood 13.3 .Hematocrit 39.4 MCH (Corpuscula r Hemoglobin) 30.2 MCHC (Corpuscul ar Hemog Conc) 33.7 RDW 15.6 .Platelet Count Blood 232 Neutrophils 59 Fluid Lymphocytes 31 Monocytes 6 Fluid Body Eosinophils 3 Basophils % 1 Absolute Basophils 0.10 Absolute Eosinophils 0.20 Absolute Lymphocytes 2.70 Absolute Monocytes 0.50 .Ipth 04/14/2018 [place] .Ipth 63.56 Xray 11/18/[address], Abdomen, W/ Contrast SEE REPORT Xray 11/18/[address], Abdomen, W/ Contrast CORTICAL CYST L KIDY .Urinalysis-Cult ure 11/17/2017 [facility] [phone] Culture Urine NO SIGNIFICANT H .Urinalysis-Rout ine 11/17/2017 [facility] [phone] Ua Specific [place] 1.014 Ua PH Test Strip 6.0 Ua [...] 54 High 20 .Urine Prot/Creat Ratio 02/17/2017 [place] .Urine Prot/Creat Ratio 0.07 Miscellaneous Other 02/17/2017 [place], [place] [phone] Misc Test - Put Test In Order completed .Renal Panel -LC 02/17/2017 [place] .Albumin 4.1 .Calcium 9.4 .Carbon Dioxide [...] ar Hemog Conc) 34.1 .Urinalysis-Rout ine 06/08/2015 [place] Ua Specific [place] 1.020 Ua PH Test Strip 5.0 Ua Color yellow Ua Appearance clear Ua Protein negative Ua Glucose negative Ua Bilirubin negative Ua Urobilinogen normal Ua Nitrite negative .Hemoglobin And Hematocrit 06/08/2015 [place] .Hemoglobin Blood 12.8 .Hematocrit 38.2 .Urine Protein/Creat. Random 06/08/2015 [place] .Urine Protein Random 13 .Urine Creatini ne Random 219.4 .Urine Prot/Cre at Ratio 0.05 Urine Culture 06/08/2015 [place] Culture Urine Routine see report .Renal Panel 06/08/2015 [place] .Albumin 4.0 .Calcium 8.9 .Carbon Dioxide 26 .Chloride 101 .Creatinine-LC 1.29 .Phosphorus 3.0 .Potassium 3.6 .Sodium 139 .BUN 14 .GFR-LC 47 High 20 .Ua 12/29/2014 [place], [place] [phone] Ua Appearance clear Ua Bilirubin negative Ua Blood trace Ua Color yellow Ua Epithelial Cells QL 2 to 5 Ua Glucose negative Ua Leuko negative Ua Nitrite negative Ua PH Test Strip 5.0 Ua Protein negative Ua RBC 0 to 2 Ua Specific [place] 1.020 Ua Urobilinogen normal .Renal Panel 12/29/2014 [place], [place] [phone] .Albumin 4.1 .Calcium 9.7 .Carbon Dioxide 30 .Chloride 102 .Creatinine-LC 1.50 .Phosphorus 4.2 .Potassium 4.1 .Sodium 142 .BUN 18 .GFR-LC 40 High 20 .Urine Protein/Creat. Random 12/29/2014 [place] .Urine Protein Random 6 .Urine Creatini ne Random 126.0 .Urine Prot/Cre at Ratio 0.05 .Renal Panel 12/06/2014 [place] .Albumin 4.0 .Calcium 9.2 .Carbon Dioxide 28 .Chloride 101 .Creatinine-LC 1.32 .Phosphorus 3.0 .Potassium 4.3 .Sodium 139 .BUN 17 .GFR-LC 46 High 20 .Urine Protein/Creat. Random 12/06/2014 [place] .Urine Protein Random 7 .Urine Creatini ne Random 196.8 .Urine Prot/Cre at Ratio 0.04 .Ua 12/06/2014 [place] Ua Appearance clear Ua Bacteria 1+ Ua Bilirubin negative Ua Blood trace Ua Color yellow Ua Epithelial Cells QL 2 to 5 Ua Glucose negative Ua Leuko negative Ua Nitrite negative Ua PH Test Strip 6.0 Ua Protein negative Ua RBC 2 to 5 Ua Specific [place] 1.020 Ua Urobilinogen normal .Complement C3 06/13/2014 [place], [place] [phone] .Complement C3 140 .Magnesium 06/13/2014 [place] .Magnesium 2.3 .Calcium 06/13/2014 [place] .Calcium 9.1 .Phosphorus 06/13/2014 [place] .Phosphorus 3.8 .Urine Protein 24HR 06/13/2014 [place] .Urine Protein Total 24H 63 .Urinalysis-Rout ine 06/13/2014 [place] Ua Specific [place] 1.015 Ua PH Test Strip 6.0 Ua Color YELLOW Ua Appearance CLEAR Ua Protein NEGATIVE Ua Glucose NEGATIVE Ua Bilirubin NEGATIIVE Ua Urobilinogen NORMAL Ua Nitrite NEGATIVE .V Ipth-Vitamin D 06/13/2014 [place] .Ipth 49.31 .Vitamin D, 25 Hydroxy 28.9 .Anca Panel-LC 06/13/2014 [place] .Anca-C 30 .Anca-P 7 .Urine Protein Elect Ran 06/13/2014 [place] Urine Interpretation NORMAL .GBM Antibody-LC 06/13/2014 [place] .Anti-GBM- 4 .Complement Total (CH50) 06/13/2014 [place] .Complement Total (CH50) 115 .Complement C4 06/13/2014 [place] .Complement C4 29 .Ipth 06/13/2014 [place] .Ipth 49.31 .Lipid Panel 06/13/2014 [place] .Cholesterol 41 .Cholester/HDL Ratio 5.6 High Density Lipoprotein 41 .LDL/HDL Ratio 58 .LDL Cholesterol 131 .Triglycerides 289 .Immunofixation- Urine 06/13/2014 [place] .Immunofixation-U rine NEGATIVE .Vitamin D, 25 Hydroxy 06/13/2014 [place] .Vitamin D, 25 Hydroxy 28.9 .Cryoglobulin 06/13/2014 [place] .Cryoglobulin 0 .Hepatitis B-Surface Antigen 06/13/2014 [place] .Hepatitis B-Surface Antigen NON REACTIVE .Hepatitis C 06/13/2014 [place] .Hepatitis C NON REACTIVE .Immunofixation- Serum 06/13/2014 [place] .Immunofixation-S genesis NEGATIVE .Hemoglobin And Hematocrit 06/13/2014 [place] .Hemoglobin Blood 13.0 .Hematocrit 37.9 .Urine Eosinophils Random 06/13/2014 [place] .Urine Eosinophils Random NONE SEEN .BUN 06/13/2014 [place] .BUN 18 .Creatinine-LC 06/13/2014 [place] .Creatinine-LC 1.27 .GFR-LC 06/13/2014 [place] .GFR-LC 58 High 20 .Sodium 06/13/2014 [place] .Sodium 138 .Potassium 06/13/2014 [place] .Potassium 4.4 .Chloride 06/13/2014 [place] .Chloride 103 .Carbon Dioxide 06/13/2014 [place] .Carbon Dioxide 27 .Renal Panel 05/30/2014 [facility] [phone] .Albumin 3.9 .Calcium 9.3 .Carbon Dioxide 27 .Chloride 101 .Creatinine-LC 1.41 .Potassium 3.6 .Sodium 136 .BUN 16 .GFR-LC 42 High 20 .GFR 51 High 20 .GFR 42 High 20 .Urinalysis-Rout ine 05/30/2014 [facility] [phone] Ua Specific [place] 1.030 Ua PH Test Strip 5.0 Ua [...] Provider Dx Diagnosis Office Visit 05/13/2024 1:00p [facility] SHUKRI Sebastian N11.9 Chronic tubulo-interstitial nephritis, unspecified N18.31 Chronic kidney disea se, stage 3a Office Visit 05/18/2023 11:00a [facility] Jerica Stokes N11.9 Chronic tubulo-interstitial nephritis, unspecified N18.31 Chronic kidney disea se, stage 3a D50.9 Iron deficiency anem ia, unspecified E55.9 Vitamin D deficiency , unspecified Office Visit 05/23/2022 11:00a [facility] Jerica Stokes N11.9 Chronic tubulo-interstitial nephritis, unspecified N18.31 Chronic kidney disea se, stage 3a D50.9 Iron deficiency anem ia, unspecified E55.9 Vitamin D deficiency , unspecified Office Visit 05/22/2021 1:30p [facility] Tequila Giles NP N11.9 Chronic tubulo-interstitial nephritis, unspecified N18.30 Chronic kidney disea se, stage 3 unspecified Office Visit 06/08/2020 11:20a [facility] Heather Forbes M.D. N11.9 Chronic tubulo-interstitial nephritis, unspecified N18.3 Chronic kidney disea se, stage 3 (moderate) Office Visit 06/22/2019 10:00a [facility] Heather Forbes M.D. N11.9 Chronic tubulo-interstitial [...] Pure hyperglyceridem ia Office Visit 06/15/2015 1:00p [facility] Heather king M.D. 585.3 Chronic Kidney Disease Stage 3 582.89 Interstitial Nephrit is 530.81 Esophageal Reflux Office Visit 12/15/2014 1:00p [facility] BRENDEN Boyer 585.3 Chronic Kidney Disease Stage 3 582.89 Interstitial Nephrit is V58.64 Care Home (Current)Us e Of Non-Steroid Antiinflammatories 530.81 Esophageal Reflux Office Visit 07/07/2014 11:40a [facility] Heather high M.D. 585.3 Chronic Kidney Disease Stage 3 582.89 Interstitial Nephrit is V58.64 Care Home (Current)Us e Of Non-Steroid Antiinflammatories 530.81 Esophageal Reflux Office Visit 06/09/2014 1:00p [facility] Doug Elda ngo M.D. 585.3 Chronic Kidney Disease Stage 3 582.89 Interstitial Nephrit is V58.64 Care Home (Current)Us e Of Non-Steroid Antiinflammatories 789.00 [...] tubulo-i nterstitial nephritis, unspecified Tequila N Wehr, SR. MANAGER MARKETING 05/22/2021 N18.30 Chronic kidney disease, stag e 3 unspecified Heather Kamadana M.D. 05/22/2021 N18.30 Chronic kidney disease, stag e 3 unspecified Tequila N Wehr, SR. MANAGER MARKETING 06/08/2020 N11.9 Chronic tubulo-i nterstitial nephritis, unspecified [...] Chronic Kidney Disease Stage 3 Cheryl Palomo, MITIGATION SUPERVISOR 12/15/2014 582.89 Interstitial Nephritis Cheryl Palomo, MITIGATION SUPERVISOR 12/15/2014 V58.64 Care Home (Curren t)Use Of Non-Steroid Antiinflammatories Cheryl Palomo, MITIGATION SUPERVISOR 12/15/2014 530.81 Esophageal Reflux Cheryl liang, MITIGATION SUPERVISOR 07/07/2014 585.3 Chronic Kidney Disease Stage 3 Heather Forbes M.D. 07/07/2014 582.89 Interstitial Nephritis Polly Forbes M.D. 07/07/2014 V58.64 Care Home (Curren t)Use Of Non-Steroid Antiinflammatories Heather Forbes M.D. 07/07/2014 530.81 Esophageal Reflux Heather stevens M.D. 06/09/2014 585.3 Chronic Kidney Disease Stage 3 Doug Klein M.D. 06/09/2014 582.89 Interstitial Nephritis Kenroy Klein M.D. 06/09/2014 V58.64 Care Home (Curren t)Use Of Non-Steroid Antiinflammatories Doug Klein M.D. 06/09/2014 789.00 Pain Abdominal Unspec Site S yasmin Klein M.D.
--- OUTSIDE RECORDS SUMMARY | 2025-05-31 09:53 | XMS_ITS | Clinical Summary ---
Author Organization [facility] Address [address] [place] [address] Care Team Providers Care Logistics System Engineer Name Role Phone Felipe Adam MD Primary Care Provider [phone] Allergies Active Allergy Reactions Criticality Noted Date [...] Description 10/12/2025 10:30 AM EST Office Visit [facility] [address] [place] [address] Dimas Adair MD [address] [place] [address] Health Maintenance Due Date Last Done Comments [...] Screen Negative Negative 10/21/2017 9:47 AM EST [facility] Blood BLOOD SPECIMEN / Unknown 10/20/2017 5:25 PM EST 10/20/2017 10:58 PM EST Narrative [facility] - 10/21/2017 9:47 AM EST Test performed using [employer] Immunodiagnostic system. us Edu Parry MD LAB BLOOD ORDERABLES Lou l Result [facility] [address] [place] [address] * High Risk HPV with Genotype 16,18 (03/20/2017 12:00 AM EDT) HPV 16 Negative Negative 04/01/2017 2:01 PM EDT [facility] HPV 18 Negative Negative 04/01/2017 2:01 PM EDT [facility] HPV, Other HR Types Negative Negative 04/01/2017 2:01 PM EDT [facility] Pap, Liquid Based CERVIX UTERI STRUCTURE / Unknown 03/20/2017 03/31/2017 9:32 PM EDT Narrative [facility] - 04/01/2017 2:01 PM EDT Assay performed using [employer] 4800 system utilizing Real-Time PCR to amplify target HPV DNA. This system specifically identifies HPV16 and HPV18 while concurrently detecting the other twelve high risk types (31,33,35,39,45,51,52,56,58,59,66,68). Shanice Richard DO BODY FLUIDS AND STO OLS ORDERABLES Final Result [facility] [address] [place] [address] * Thinprep Pap Smear (03/20/2017 12:00 AM [...] HPV DNA. This system specifically identifies HPV16 [id number] while concurrently detecting the other twelve high risk types(31,33,35,39,45,51,52,56,58,59,66,68). Completed by on 2017-04-02 Electronically Signed By Arielle NEFF (ASCP) , Savings Teller (Case signed 03/30/2017) The Papanicolaou smear is a screening tool, and like any screen, has an inherent false negative rate. Interpretation of results should be made in the context of patient history and clinical findings. Shanice Leemary Jose Manuel DO PATHOLOGY/CYTOLOGY ORDERABLES Final Result [facility] from Last 3 Months or Most Recently Relevant to Health Maintenance Insurance [facility] HMO/CHOICE PLUS/DULCE/DULCE PLUS Care Teams Logistics System Engineer Relationship Specialty Start Date End Date Back, MD Felipe [address] [place] [address] PCP - General Internal Medicine 03/26/15
--- OUTSIDE RECORDS SUMMARY | 2025-05-31 09:53 | XMS_ITS | Encounter Summary ---
Author Organization [facility] Address [address] [facility] [place] [address] Care Team Providers Care Vine Pruner Name Role Phone Alcides Adam MD Primary Care Provider [phone] Encounter Details Date Type Department Care Team [...] 08/23/2025 1:00 PM EST Office Visit [facility] [address] [address] Jennie Barajas, CLINICAL REVIEW NURSE-HEALTH PLAN SPECIALIST [address] [place] [address] documented as of this encounter Visit Diagnoses Not on filedocumented in this encounter Care Teams Vine Pruner Relationship Specialty Start Date End Date Alcides Adam MD [address] [place] [address] PCP - General Family Medicine 12/08/24 documented as of this encounter
--- OUTSIDE RECORDS SUMMARY | 2025-05-31 09:53 | XMS_ITS | Clinical Summary ---
Author Organization [facility] Address [address] [place] [address] Phone Care Team Providers Care Farmworker [employer] Name Role Phone Unavailable Primary Care Provider [...]
--- OUTSIDE RECORDS SUMMARY | 2025-05-31 09:53 | XMS_ITS | Encounter Summary ---
Author Organization [facility] Address [address] [place] [address] Care Team Providers Care Research Biologist Name Role Phone Alcides Adam MD Primary Care Provider [phone] Encounter Details Date Type Department Care Team (Late st Contact Info) Description 05/24/2025 Bamboo flowsheet [facility] [address] [facility] [place] [address] Jennie Barajas, SCREEN PRINT OPERATOR-MUSTANGER [address] [place] [address] Social History Tobacco Use Types Packs/Day Years [...] Neurology [address] [facility] [place] [address] Jennie Barajas, SCREEN PRINT OPERATOR-MUSTANGER [address] [place] [address] documented as of this encounter Visit Diagnoses Not on filedocumented in this encounter Care Teams Research Biologist Relationship Specialty Start Date End Date Alcides Adam MD [address] [place] [address] PCP - General Family Medicine 12/08/24 documented as of this encounter
--- OUTSIDE RECORDS SUMMARY | 2025-05-31 09:53 | XMS_ITS | Encounter Summary ---
Author Organization [facility] Address [address] [facility] [place] [address] Care Team Providers Care Level Vial Setter Name Role Phone Alcides Adam MD Primary Care Provider Encounter Details Date Type Department Care Team (Late Contact Info) Description 08/24/2023 Clinisync Result Encounter [facility] Unsolicited Trace Casas MD [address] [address] Social History Tobacco Use Types [...] Upcoming Encounters Date Type Department Care Team ([facility] Contact Info) Description 08/23/2025 1:00 PM EST Office Visit [facility] [address] [facility] [place] [address] Jennie Barajas, DIESEL LOCOMOTIVE FIRER/FIREMAN-CORE MANAGER [address] [place], [place] [id number] documented as of this encounter Procedures Procedure [...] on filedocumented in this encounter Care Teams Level Vial Setter Relationship Specialty Start Date End Date Back, MD Alcides [address] [place] [address] PCP - General Family Medicine 12/08/24 documented as of this encounter
--- OUTSIDE RECORDS SUMMARY | 2025-05-31 09:53 | XMS_ITS | Encounter Summary ---
Author Organization [facility] Address [address] [facility] [place] [address] Care Team Providers Care Candle Molder Hand Name Role Phone Alcides Adam MD Primary Care Provider [phone] Reason for Visit * Reason Onset Date Comments TENS 05/24/2025 Encounter Details Date Type Department Care Team (Late Contact Info) Description 05/24/2025 Telephone [facility] [address] [facility] [address] [place] [address] Gauri Jay MA TENS Social [...] 3:23 PM EDT TENS order faxed to [facility]. documented in this encounter Plan of Treatment Upcoming Encounters Date Type Department Care Team (Late Contact Info) Description 08/23/2025 1:00 PM EST Office Visit [facility] [address] [facility] [address] [place] [address] Jennie Barajas, CHIEF RADIOLOGIC TECHNOLOGIST-METAL TESTER [address] [place] [address] documented as of this encounter Visit Diagnoses Not on filedocumented in this encounter Care Teams Candle Molder Hand Relationship Specialty Start Date End Date Back, MD Alcides [address] [place] [address] PCP - General Family Medicine 12/08/24 documented as of this encounter
--- OUTSIDE RECORDS SUMMARY | 2025-05-31 09:53 | XMS_ITS | Clinical Summary ---
Author Organization [facility] Address [address] [place] [address] Care Team Providers Care Corporate Associate Attorney Name Role Phone Back, Alcides MELENDREZ Primary Care Provider [phone] Allergies No known active allergies Medications Cetirizine [...] (09/29/2017): Added automatically from request for surgery [id number] Basal cell carcinoma of skin of face [...] to complete this topic Insurance Care Teams Corporate Associate Attorney Relationship Specialty Start Date End Date Back, MD Alcides [address] [place] [address] PCP - General Internal Medicine 07/31/17
--- OUTSIDE RECORDS SUMMARY | 2025-05-31 09:53 | XMS_ITS | Encounter Summary ---
Author Organization [facility] Address [address] [place] [address] Care Team Providers Care Scientific Systems Analyst Name Role Phone lAcides Adam MD Primary Care Provider [phone] Reason for Visit * Reason Comments Med Refill Encounter Details Date Type Department Care Team (Late st Contact Info) Description 07/20/2023 Refill [facility] [address] [facility] [address] [place] [address] Trace Casas MD [address] [facility] [address] [place] [address] Idiopathic progressive polyneuropathy Social History Tobacco Use [...] Neurology [address] [place] [address] Jennie Barajas, SEAMAN-PATTERN CHAIN BUILDER [address] [facility] [place], [place] [id number] documented as of this encounter Visit Diagnoses Diagnosis Idiopathic progressive polyneuropathy documented in this encounter Care Teams Scientific Systems Analyst Relationship Specialty Start Date End Date Back, MD Alcides [address] [place] [address] PCP - General Family Medicine 12/08/24 documented as of this encounter
--- OUTSIDE RECORDS SUMMARY | 2025-05-31 09:54 | XMS_ITS | Clinical Summary ---
Author Organization [facility] Address [address] [place] [address] Care Team Providers Care Semiconductor Processing Technician Name Role Phone Alcides Adam MD Primary Care Provider [phone] Allergies Active Allergy Reactions Criticality Noted Date [...] Orders: Ambulatory referral to Neurology Epidural abscess ([facility]) 08/20/2018 Septic arthritis 08/20/2018 Abdominal pain 05/04/2018 Pure hyperglyceridemia 05/04/2018 Pyelonephritis 05/04/2018 Neoplasm of uncertain behavior of skin 8 Peripheral neuropathy 12/01/2017 Basal cell carcinoma of skin of face 09/16/2017 Overview (03/08/2023): Added automatically from request for surgery [id number] Overview: Added automatically from request for surgery [id number] Mixed hyperlipidemia 03/19/2017 Carpal tunnel syndrome of [...] Ancillary Procedure [facility] [address] [facility] [address] [place] [address] Cervical paraspinal muscle spasm 05/24/2025 11:30 AM EDT Office Visit [facility] [address] [facility] [address] [place] [address] Jennie Barajas, UNHAIRER-REHABILITATION PROGRAM MANAGER BUCK (obstructive sleep apnea) (Primary Dx); Cervical paraspinal muscle spasm; Cervical radiculopathy 05/24/2025 Telephone [facility] [address] [facility] [address] [place] [address] Gauri Jay MA TENS 05/24/2025 Bamboo flowsheet [facility] [address] [place] [address] Jennie Barajas, UNHAIRER-REHABILITATION PROGRAM MANAGER 05/24/2025 Travel 05/23/2025 Telephone [facility] [address] [facility] [address] [place] [address] Nash Block MD 04/20/2025 12:45 PM EDT Office Visit [facility] [address] [facility] [place] [address] Robbin Wasserman DPM MRSA (methicillin [...] right foot, initial encounter 04/20/[address] [facility] [address] [place] [address] Robbin Wasserman, INDER 04/20/2025 Travel 04/19/2025 Travel 04/12/2025 Results Follow-Up [facility] [address] [place] [address] Robbin Wasserman DPM MRI FOOT RIGHT W WO CONTRAST 04/12/2025 Clinisync Result Encounter [facility] Unsolicited Robbin Wasserman DPM 04/11/[address] [facility] [address] [place] [address] Robbin Wasserman DPM 04/11/2025 Clinisync Result Encounter [facility] Unsolicited Robbin Wasserman DPM 04/06/2025 5:10 PM EDT Ancillary Procedure [facility] [address] [place] [address] 04/06/2025 4:30 PM EDT Office Visit [facility] [address] [place] [address] Robbin Wasserman DPM Right foot pain (Primary Dx); Skin ulcer of toe of right foot with fat layer exposed (HCC); Infection of toe; Idiopathic progressive polyneuropathy; Generalized edema 04/06/[address] [facility] [address] [place] [address] Robbin Wasserman DPM 04/06/2025 Travel 03/14/2025 12:00 PM EDT Office Visit [facility] [address] [place] [address] Nash Block MD BUCK (obstructive sleep apnea) (Primary Dx); Claustrophobia ; Hypersomnia 03/14/2025 Bamboo flowsheet [facility] [address] [place] [address] Nash Block MD 03/14/2025 Travel [...] Neurology [address] [place] [address] Jennie Barajas, UNHAIRER-REHABILITATION PROGRAM MANAGER [address] [place] [address] Procedures Procedure Name Priority Date/Time [...] BY: Gregorio Davila DO us Jennie Barajas UNHAIRER-REHABILITATION PROGRAM MANAGER IMG XR PROCEDURES Lou l Result * [...] Final Result from Last 3 Months Insurance [facility] Care Teams Semiconductor Processing Technician Relationship Specialty Start Date End Date Back, MD Alcides [address] [place], [place] [id number] PCP - General Family Medicine 12/08/24
--- OUTSIDE RECORDS SUMMARY | 2025-05-31 10:10 | XMS_ITS | CCD ---
Author Organization [facility] Care Team Providers Care Magneto Electrician Name Role Phone Back, Felipe Unavailable Unavailable [...] HARRIS Attending Unavailable FRANCES HARRIS Consulting Unavailable FRANCSE HARRIS Admitting Unavailable FRANCES HARRIS Attending Unavailable [facility], DR PIPER Ackerman Consulting Unavailable HIGHLFRANCES HERNANDEZ Consulting Unavailable HIGHLFRANCES HERNANDEZ Admitting Unavailable FRANCES HARRIS Attending Unavailable MAYER, DR EMILY Riojas Consulting Unavailable FRANCES HARRIS [...] Unavailable Back , Bill Primary Care Provider BACK, FELIPE Primary Care Unavailable TONGSEVERO OLEA [...] BLOCK Attending Unavailable ROBBIN SÁNCHEZ Attending UnavailROBBIN Otreo Referring Unavailabl e ROBBIN SÁNCHEZ Attending Unavailabl e VAN, JENNIE Attending Unavailable REHAN JENNIE Referring Unavailable TIFFANIE CASAS Attending Unavailable FOZIA MENG Attending Unavailable Allergies Allergy Classification Reported Allergen(s) Allergy Type Date of Onset Reaction(s) Facility (20 sources) Chlorhexidine; Translations: [CHLORHEXIDINE] Drug Allergy 3 [facility] (10 sources) topiramate; Translations: [TOPIRAMATE] Drug Allergy 4 Other (See Comments) [facility] (20 sources) Topiramate Propensity to adverse reactions 4 [facility] (1 source) Chlorhexidine; Translations: [Chlorhexidine Gluconate] Drug Allergy [facility] Repository Medications Current Medications Medication Drug [...] Active Start: 04-19-2022 take 1 tablet [facility] daily baclofen (LIORESAL) 10 MG tablet [...] Active Start: 08-07-2022 take 1 capsule by [facility] once daily as needed for urinary [...] oral tablet (1 source) alpha-Adrenergic Agonist, Uncompetitive H-oecrqx-B-aspartate Receptor Antagonist, Sigma-1 Agonist Start: End: take 1 tablet by mouth every six hours as needed Wgokbzxsgukkqqb-PY-QU (CAPMIST DM) 60-15-400 MG TABS Take 1 [...] (BMI) of 38.0 to 38.9 in adult ([facility]) Take 1 tablet by mouth every [...] (BMI) of 40.0 to 44.9 in adult ([facility]) Take 1 capsule by mouth every [...] thoracic region , Infection of thoracic spine ([facility]) , Peripheral polyneuropathy Take 1 capsule by [...] Start: 07-30-2020 take 2 tablets by mo [facility] once daily sertraline (ZOLOFT) 100 MG tablet Take 2 tablets by mouth daily Currently decreasing this medication 07/30/2020 Active Start: 07-30-2020 take 1 tablet by [facility] once daily sertraline (ZOLOFT) 100 MG tablet Take 100 mg by mouth daily Currently decreasing this medication 0 07/30/2020 Active Start: 07-06-2019 take 2 tablets by [facility] once daily sertraline (ZOLOFT) 50 MG [...] of skin] Onset: 02-05-2018 08-03-2017 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 4 mg/dL [facility] [employer] [facility] Chloride [Moles/Vol] 104 mmol/L 98 - 10 7 mmol/L [facility] CO2 [Moles/Vol] 22 mmol/L 20 - 31 mmol/L [facility] Creatinine [Mass/Vol] 1.3 mg/dL High 0.5 - 0.9 mg/dL [facility] Sariah Hahnt Rate 52 Low - PINF [facility] Comment on above: These results are not [...] 131 mg/dL High 70 - 99 mg/dL [facility] Potassium [Moles/Vol] 4.4 mmol/L 3.7 - 5.3 mmol/L [facility] Sodium [Moles/Vol] 138 mmol/L 135 - 144 mmol/L [facility] Urea nitrogen [Mass/Vol] 17 mg/dL 6 - 20 mg/dL [facility] Basic Metabolic Profon 05-15 Anion gap [Moles/Vol] 12 mmol/L Normal 9-17 [facility] Comment on above: Performed By: #### C BC, SED, MORPHX, CRP, BMP ####[facility] Btf6446 [place], [place] [address] Lab Director: Emily George MD Calcium [Mass/Vol] 9.3 mg/dL Normal 8.6-10.4 [facility] Comment on above: Performed By: #### C BC, SED, MORPHX, CRP, BMP ####[facility] Uus7092 [facility] [place], [place] [phone] lab Director: Emily George MD Chloride [Moles/Vol] 104 mmol/L Normal 98-107 [facility] Comment on above: Performed By: #### C BC, SED, MORPHX, CRP, BMP ####[facility] Jcm2451 [place] [address] lab Director: Emily George MD CO2 [Moles/Vol] 22 mmol/L Normal 20-31 [facility] Comment on above: Performed By: #### C BC, SED, MORPHX, CRP, BMP ####[facility] Tra0650 [place] [address] lab Director: Emily George MD Creatinine [Mass/Vol] 1.3 mg/dL High 0.5-0.9 [facility] Comment on above: Performed By: #### C BC, SED, MORPHX, CRP, BMP ####[facility] Jef4517 [place] [address] lab Director: Emily George MD GFR/1.73 sq M.predicted among non-blacks MDRD (S/P/Bld) [Vol rate/Area] 52 mL/min/{1.73_m2} Low >60 [facility] Comment on above: Result Comment: These results [...] #### C BC, SED, MORPHX, CRP, BMP ####[facility] Evi0203 [place] [address] lab Director: Emily George MD Glucose [Mass/Vol] 131 mg/dL High 70-99 [facility] Comment on above: Performed By: #### C BC, SED, MORPHX, CRP, BMP ####[facility] Vnl8045 [place] [address] lab Director: Emily George MD Potassium [Moles/Vol] 4.4 mmol/L Normal 3.7-5.3 [facility] Comment on above: Performed By: #### C BC, SED, MORPHX, CRP, BMP ####[facility] Mey5432 [place], [place] [id number] lab Director: Emily George MD Sodium [Moles/Vol] 138 mmol/L Normal 135-144 [facility] Comment on above: Performed By: #### C BC, SED, MORPHX, CRP, BMP ####[facility] Nsn9305 [place] [address] lab Director: Emily George MD Urea nitrogen [Mass/Vol] 17 mg/dL Normal 6-20 [facility] Comment on above: Performed By: #### C BC, SED, MORPHX, CRP, BMP ####[facility] Kug6865 [place], [place] [id number] lab Director: Emily George MD C-Reactive Proteinon 025 CRP High sensitivity method [Mass/Vol] 6.2 mg/L High 0.0 - 5.0 mg/L [facility] CRP [Mass/Vol] 6.2 mg/L High 0.0-5.0 [facility] Comment on above: Performed By: #### C BC, SED, MORPHX, CRP, BMP ####[facility] Ncy1919 [place], [place] [phone] lab Director: Emily George MD CBCon 05-15-2025 Erythrocyte distribution width (RBC) [Ratio] 19.4 % High 12.1 - 15.2 % [facility] Hematocrit (Bld) [Volume fraction] 32.3 % Low 36.0 - 46.0 % [facility] Hemoglobin (Bld) [Mass/Vol] 9.9 g/dL Low 12.0 - 16.0 g/dL [facility] Interpretation and review of laboratory results Abnormal [facility] MCH (RBC) [Entitic mass] 28.0 pg 26.0 - 34.0 pg [facility] MCHC (RBC) [Mass/Vol] 30.7 g/dL Low 31.0 - 37.0 g/dL [facility] MCV (RBC) [Entitic vol] 91.2 fL 80.0 - 100.0 fL [facility] Platelet mean volume (Bld) [Entitic vol] 11.7 fL 6.0 - 12.0 fL [facility] Platelets (Bld) [#/Vol] 154 10*3/uL [facility] RBC (Bld) [#/Vol] 3.54 10*6/uL Low 4.00 - 5.2 0 m/uL [facility] WBC other (Bld) [#/Vol] 3.8 [facility] Erythrocyte distribution width (RBC) [Ratio] 19.4 % High 12.1-15.2 [facility] Comment on above: Performed By: #### C BC, SED, MORPHX, CRP, BMP ####[facility] Unw5524 [place] [address] lab Director: Emily George MD Hematocrit (Bld) [Volume fraction] 32.3 % Low 36.0-46.0 [facility] Comment on above: Performed By: #### C BC, SED, MORPHX, CRP, BMP ####[facility] Dge9535 [place] [address] lab Director: Emily George MD Hemoglobin (Bld) [Mass/Vol] 9.9 g/dL Low 12.0-16.0 [facility] Comment on above: Performed By: #### C BC, SED, MORPHX, CRP, BMP ####[facility] Dud7532 [place] [address] lab Director: Emily George MD MCH (RBC) [Entitic mass] 28.0 pg Normal 26.0-34.0 [facility] Comment on above: Performed By: #### C BC, SED, MORPHX, CRP, BMP ####[facility] [address] [place] [address] Lab Director: Emily George MD MCHC (RBC) [Mass/Vol] 30.7 g/dL Low 31.0-37.0 [facility] Comment on above: Performed By: #### C BC, SED, MORPHX, CRP, BMP ####[facility] Uxg[address] [place], [place] [phone] Director: Emily George MD MCV (RBC) [Entitic vol] 91.2 fL Normal 80.0-100.0 [facility] Comment on above: Performed By: #### C BC, SED, MORPHX, CRP, BMP ####[facility] Zem3387 [place] [address] Lab Director: Emily George MD Platelet mean volume (Bld) [Entitic vol] 11.7 fL Normal 6.0-12.0 [facility] Comment on above: Performed By: #### C BC, SED, MORPHX, CRP, BMP ####[facility] Wvq[address] [place] [address] Lab Director: Emily George MD Platelets (Bld) [#/Vol] 154 10*3/uL Normal 140-450 [facility] Comment on above: Performed By: #### C BC, SED, MORPHX, CRP, BMP ####[facility] [address] [place], [place] [phone] Director: Emily George MD RBC (Bld) [#/Vol] 3.54 10*6/uL Low 4.00-5.20 [facility] Comment on above: Performed By: #### C BC, SED, MORPHX, CRP, BMP ####[facility] T[address] [place] [address] Lab Director: Emily George MD WBC (Bld) [#/Vol] 3.8 10*3/uL Normal 3.5-11.0 [facility] Comment on above: Performed By: #### C BC, SED, MORPHX, CRP, BMP ####[facility] Dbu[address] [place], [place] [phone] Lab Director: Emily George MD MORPHOLOGY CHECKon 5 Morphology Rehan (Bld) [Interp] MODERATE ANISOCYTOSIS [facility] Morphology Checkon 5 Morphology Rehan (Bld) [Interp] MODERATE Normal [facility] Comment on above: Result Comment: ANIS OCYTOSIS Performed By: #### C BC, SED, MORPHX, CRP, BMP ####[facility] N[address] [place], [place] [phone] Lab Director: Emily George MD No Panel Informationon 05-15 Interpretation and review of laboratory results Abnormal [facility] Sedimentation Rateon 025 Sedimentation Rate 19 mm/Hr Normal 0-20 [facility] Comment on above: Performed By: #### C BC, SED, MORPHX, CRP, BMP ####[facility] Tfs[address] [place] [address] Lab Director: Emily George MD ESR Photometric method (Bld) [Velocity] 19 [facility] Comp Metabolic Profon 2024 Albumin [Mass/Vol] 4.2 g/dL Normal 3.5-5.2 [facility] Comment on above: Performed By: #### L IPR, GLYHGB #### [facility] [address] [place] [address] Photographer'S Assistant: Placido Pierce MD #### CP #### [facility] [address] [place] [address] Photographer'S Assistant: Emily George MD #### INSU #### [facility] [address] [place] [address] Photographer'S Assistant: Placido Pierce MD [facility] [address] [place] [address] Photographer'S Assistant: Emily George MD Albumin/Glob Ratio 1.4 Normal 1.0-2.5 [facility] Comment on above: Performed By: #### L IPR, GLYHGB #### [address] [address] Photographer'S Assistant: Placido Pierce MD #### CP #### [facility] [address] [place] [address] Photographer'S Assistant: Emily George MD #### INSU #### [address] [address] Photographer'S Assistant: Placido Pierce MD [facility] [address] [place] [address] Photographer'S Assistant: Emily George MD Alkaline Phos 109 U/L High 35-104 [facility] Comment on above: Performed By: #### L IPR, GLYHGB #### [address] [address] Photographer'S Assistant: Placido Pierce MD #### CP #### [facility] [address] [place] [address] Photographer'S Assistant: Emily George MD #### INSU #### [facility] [address] [place] [address] Photographer'S Assistant: Placido Pierce MD [facility] [address] [place] [address] Photographer'S Assistant: Emily George MD ALT [Catalytic activity/Vol] 23 U/L Normal 5-33 [facility] Comment on above: Performed By: #### L IPR, GLYHGB #### [address] [place] [address] Photographer'S Assistant: Placido Pierce MD #### CP #### [facility] [address] [place] [address] Photographer'S Assistant: Emily George MD #### INSU #### [facility] [address] [place] [address] Photographer'S Assistant: Placido Pierce MD [facility] [address] [place] [address] Photographer'S Assistant: Emily George MD Anion gap [Moles/Vol] 14 mmol/L Normal 9-17 [facility] Comment on above: Performed By: #### L IPR, GLYHGB #### [facility] [address] [place] [address] Photographer'S Assistant: Placido Pierce MD #### CP #### [facility] [address] [place] [address] Photographer'S Assistant: Emily George MD #### INSU #### [facility] [address] [place] [address] Photographer'S Assistant: Placido Pierce MD [facility] [address] [place] [address] Photographer'S Assistant: Emily George MD AST [Catalytic activity/Vol] 22 U/L Normal <32 [facility] Comment on above: Performed By: #### L IPR, GLYHGB #### [facility] [address] [place] [address] Photographer'S Assistant: Placido Pierce MD #### CP #### [facility] [address] [place] [address] Photographer'S Assistant: Emily George MD #### INSU #### [facility] [address] [place] [address] Photographer'S Assistant: Placido Pierce MD [facility] [address] [place] [address] Photographer'S Assistant: Emily George MD Bilirubin [Mass/Vol] 0.5 mg/dL Normal 0.3-1.2 [facility] Comment on above: Performed By: #### L IPR, GLYHGB #### [facility] [address] [place] [address] Photographer'S Assistant: Placido Pierce MD #### CP #### [facility] [address] [place] [address] Photographer'S Assistant: Emily George MD #### INSU #### [address] [address] Photographer'S Assistant: Placido Pierce MD [facility] [address] [place] [address] Photographer'S Assistant: Emily George MD Calcium [Mass/Vol] 9.4 mg/dL Normal 8.6-10.4 [facility] Comment on above: Performed By: #### L IPR, GLYHGB #### [address] [address] Photographer'S Assistant: Placido Pierce MD #### CP #### [facility] [address] [place] [address] Photographer'S Assistant: Emily George MD #### INSU #### [address] [address] Photographer'S Assistant: Placido Pierce MD [facility] [address] [place] [address] Photographer'S Assistant: Emily George MD Chloride [Moles/Vol] 99 mmol/L Normal 98-107 [facility] Comment on above: Performed By: #### L IPR, GLYHGB #### [facility] [address] [place] [address] Photographer'S Assistant: Placido Pierce MD #### CP #### [facility] [address] [place] [address] Photographer'S Assistant: Emily George MD #### INSU #### [facility] [address] [place] [address] Photographer'S Assistant: Placido Pierce MD [facility] [address] [place] [address] Photographer'S Assistant: Emily George MD CO2 [Moles/Vol] 26 mmol/L Normal 20-31 [facility] Comment on above: Performed By: #### L IPR, GLYHGB #### [address] [address] Photographer'S Assistant: Placido Pierce MD #### CP #### [facility] [address] [place] [address] Photographer'S Assistant: Emily George MD #### INSU #### [address] [address] Photographer'S Assistant: Placido Pierce MD [facility] [address] [place] [address] Photographer'S Assistant: Emily George MD Creatinine [Mass/Vol] 1.4 mg/dL High 0.5-0.9 [facility] Comment on above: Performed By: #### L IPR, GLYHGB #### [facility] [address] [place] [address] Photographer'S Assistant: Placido Pierce MD #### CP #### [facility] [address] [place] [address] Photographer'S Assistant: Emily George MD #### INSU #### [facility] [address] [place] [address] Photographer'S Assistant: Placido Pierce MD [facility] [address] [place] [address] Photographer'S Assistant: Emily George MD GFR/1.73 sq M.predicted among non-blacks MDRD (S/P/Bld) [Vol rate/Area] 47 mL/min/{1.73_m2} Low >60 [facility] Comment on above: Result Comment: These results [...] Performed By: #### L IPR, GLYHGB #### [address] [address] Photographer'S Assistant: Placido Pierce MD #### CP #### [facility] [address] [place] [address] Photographer'S Assistant: Emily George MD #### INSU #### [address] [address] Photographer'S Assistant: Placido Pierce MD [facility] [address] [place] [address] Photographer'S Assistant: Emily George MD Glucose [Mass/Vol] 114 mg/dL High 70-99 [facility] Comment on above: Performed By: #### L IPR, GLYHGB #### [facility] [address] [place] [address] Photographer'S Assistant: Placido Pierce MD #### CP #### [facility] [address] [place] [address] Photographer'S Assistant: Emily George MD #### INSU #### [address] [address] Photographer'S Assistant: Placido Pierce MD [facility] [address] [place] [address] Photographer'S Assistant: Emily George MD Potassium [Moles/Vol] 4.1 mmol/L Normal 3.7-5.3 [facility] Comment on above: Performed By: #### L IPR, GLYHGB #### [facility] [address] [place] [address] Photographer'S Assistant: Placido Pierce MD #### CP #### [facility] [address] [place] [address] Photographer'S Assistant: Emily George MD #### INSU #### [address] [address] Photographer'S Assistant: Placido Pierce MD [facility] [address] [place] [address] Photographer'S Assistant: Emily George MD Protein [Mass/Vol] 7.2 g/dL Normal 6.4-8.3 [facility] Comment on above: Performed By: #### L IPR, GLYHGB #### [facility] [address] [place] [address] Photographer'S Assistant: Placido Pierce MD #### CP #### [facility] [address] [place] [address] Photographer'S Assistant: Emily George MD #### INSU #### [address] [address] Photographer'S Assistant: Placido Pierce MD [facility] [address] [place] [address] Photographer'S Assistant: Emily George MD Sodium [Moles/Vol] 139 mmol/L Normal 135-144 [facility] Comment on above: Performed By: #### L IPR, GLYHGB #### [facility] [address] [place] [address] Photographer'S Assistant: Placido Pierce MD #### CP #### [facility] [address] [place], [place] [address] Photographer'S Assistant: Emily George MD #### INSU #### [facility] [address] [place], [place] [phone] Photographer'S Assistant: Placido Pierce MD [facility] [address] [place], [place] [address] Photographer'S Assistant: Emily George MD Urea nitrogen [Mass/Vol] 18 mg/dL Normal 6-20 [facility] Comment on above: Performed By: #### L IPR, GLYHGB #### [facility] [address] [place], [place] [phone] Photographer'S Assistant: Placido Pierce MD #### CP #### [facility] [address] [employer] [place], [place] [address] Photographer'S Assistant: Emily George MD #### INSU #### [facility] [address] [place], [place] [phone] Photographer'S Assistant: Placido Pierce MD [facility] [address] [place], [place] [phone] Photographer'S Assistant: Emily George MD [facility] Metabolic Pane [facility] 04-14-2025 Albumin [Mass/Vol] 4.2 g/dL 3.5 - 5.2 g/dL [facility] Albumin/Globulin [Mass ratio] 1.4 {ratio} 1.0 - 2.5 [facility] ALP [Catalytic activity/Vol] 109 U/L High 35 - 104 U/L [facility] ALT [Catalytic activity/Vol] 23 U/L 5 - 33 U/L [facility] Anion gap [Moles/Vol] 14 mmol/L 9 - 17 mmol/L [facility] AST [Catalytic activity/Vol] 22 U/L NINF - 32 U/L [facility] Bilirubin [Mass/Vol] 0.5 mg/dL 0.3 - 1 .2 mg/dL [facility] Calcium [Mass/Vol] 9.4 mg/dL 8.6 - 10. 4 mg/dL [facility] Chloride [Moles/Vol] 99 mmol/L 98 - 10 7 mmol/L [facility] CO2 [Moles/Vol] 26 mmol/L 20 - 31 mmol/L [facility] Creatinine [Mass/Vol] 1.4 mg/dL High 0.5 - 0.9 mg/dL [facility] Est, Glom Filt Rate 47 Low - PINF [facility] Comment on above: These results are [...] 114 mg/dL High 70 - 99 mg/dL [facility] Interpretation and review of laboratory results Abnormal [facility] Potassium [Moles/Vol] 4.1 mmol/L 3.7 - 5.3 mmol/L [facility] Protein [Mass/Vol] 7.2 g/dL 6.4 - 8.3 g/dL [facility] Sodium [Moles/Vol] 139 mmol/L 135 - 144 mmol/L [facility] Urea nitrogen [Mass/Vol] 18 mg/dL 6 - 20 mg/dL [facility] Hemoglobin A1Con 04-14-2025 Average glucose Estimated from glycated hemoglobin (Bld) [Mass/Vol] 123 mg/dL [facility] Comment on above: The ADA and AACC rec ommend providing the estimated average glucose result to permit better patient understanding of their HBA1c result. HbA1c (Bld) [Mass fraction] 5.9 % 4.0 - 6.0 % [facility] Glucose [Mass/Vol] 123 mg/dL Normal [facility] Comment on above: Result Comment: The ADA and AACC recommend providing the estimated average glucose result to permit better patient understanding of their HBA1c result. Performed By: #### L IPR, GLYHGB ####[facility] [place] [address] Lab Director: Placido Pierce MD#### CP ####[facility] Kst[address]24 [place] [address] Lab Director: Emily George MD#### INSU ####[facility] [place] [address] Lab Director: Placido Pierce, [facility] Zvr1594 [place] [address] Lab Director: Emily George MD HbA1c (Bld) [Mass fraction] 5.9 % Normal 4.0-6.0 [facility] Comment on above: Performed By: #### L IPR, GLYHGB ####[facility] [place] [address] Lab Director: Placido Pierce MD#### CP ####[facility] Unn0340 [place] [address] Lab Director: Emily George MD#### INSU ####[address] [address] Lab Director: Placido Pierce, [facility] Kam3868 [place] [address] Lab Director: Emily George MD Insulinon 04-14-2025 Insulin 25.0 mU/L Normal [facility] Comment on above: Performed By: #### L IPR, GLYHGB ####[facility] [address] [place] [address] Lab Director: Placido Pierce MD#### CP ####[facility] Mvf3514 [place], [place] [phone] Director: Emily George MD#### INSU ####[facility] [place], [place] [phone] Director: Placido Pierce, [facility] [address] [place] [address] Lab Director: Emily George MD Reference Range Normal [facility] Comment on above: Result Comment: Fast in.6-24.9 30 min: 20-112 60 min: 29-88 90 min: 26-84 120 min: 22-79 Performed By: #### L IPR, GLYHGB ####[facility] [address] [place] [address] Lab Director: Placido Pierce MD#### CP ####[facility] Zlj0237 [place] [address] Lab Director: Emily George MD#### INSU ####[address] [phone] Director: Placido Pierce, [facility] Hfb6362 [facility] [place] [address] Lab Director: Emily George MD Collection Info. FASTING Normal [facility] Comment on above: Performed By: #### L IPR, GLYHGB ####[facility] [address] [place], [place] [phone] Director: Placido Pierce MD#### CP ####[facility] Fuj5716 [place], [place] [phone] Director: Emily George MD#### INSU ####[facility] [place] [address] [phone] Director: Placido Pierce, [facility] Pau[address] [place] [phone] Director: Emily George MD Insulin, Totalon 04-14-2025 Insulin 25.0 mU/L Bon [facility] Insulin Comment FASTING [facility] Insulin Reference Range: [facility] Comment on above: Fastin.6-24.9 30 min: 20-112 60 min: 29-88 90 min: 26-84 120 min: 22-79 Lipid Panelon 04-14-2025 Cholesterol [Mass/Vol] 158 mg/dL 0 - 199 mg/dL [facility] Comment on above: Cholesterol Guidelines: <200 Desirable 200-240 Borderline >240 Undesirable Cholesterol in HDL [Mass/Vol] 31 mg/dL Low 40 - PINF mg/dL [facility] Comment on above: HDL Guidelines: <40 Undesirable 40-59 Borderline >59 Desirable Cholesterol in LDL [Mass/Vol] 59 mg/dL 0 - 100 mg/dL [facility] Comment on above: LDL Guidelines: <100 Desirable 100-129 Near to/above Desirable 130-159 Borderline >159 Undesirable Direct (measured) LDL and calculated LDL are not interchangeable tests. Cholesterol in VLDL [Mass/Vol] 68 mg/dL High 1 - 30 mg/dL [facility] Cholesterol.total/Chol esterol in HDL [Mass ratio] 5.1 {ratio} High NINF - 5.0 [facility] Interpretation and review of laboratory results Abnormal [facility] Triglyceride [Mass/Vol] 341 mg/dL High NINF - 150 mg/dL [facility] Comment on above: Triglyceride Guidelines: <150 Desirable 150-199 Borderline 200-499 High >499 Very high Based on AHA Guidelines for fasting triglyceride, July 2012. Lipid Profileon 04-14-2025 Cholesterol [Mass/Vol] 158 mg/dL Normal 0-199 [facility] Comment on above: Result Comment: Cholesterol Guidelines: <200 Desirable 200-240 Borderline >240 Undesirable Performed By: #### L IPR, GLYHGB ####[facility] [address] [place] [address] Lab Director: Placido Pierce MD#### CP ####[facility] [address] [place], [place] [phone] Lab Director: Emily George MD#### INSU ####[facility] [address]jkpldcsl0872 [place] [address] Lab Director: Placido Pierce, [facility] Jyk8255 [place] [address] Lab Director: Emily George MD Cholesterol in HDL [Mass/Vol] 31 mg/dL Low >40 [facility] Comment on above: Result Comment: HDL Guidelines: <40 Undesirable 40-59 Borderline >59 Desirable Performed By: #### L IPR, GLYHGB ####[facility] [place] [address] Lab Director: Placido Pierce MD#### CP ####[facility] Iml1020 [place] [address] Lab Director: Emily George MD#### INSU ####[address] [address] Lab Director: Placido Pierce, [facility] Jft5382 [place] [address] Lab Director: Emily George MD Cholesterol in LDL [Mass/Vol] 59 mg/dL Normal 0-100 [facility] Comment on above: Result Comment: LDL Guidelines: <100 Desirable 100-129 Near to/above Desirable 130-159 Borderline >159 Undesirable Direct (measured) LDL and calculated LDL are not interchangeable tests. Performed By: #### L IPR, GLYHGB ####[facility] [address] [place] [address] Lab Director: Placido Pierce MD#### CP ####[facility] Ssi6812 [place] [address] Lab Director: Emily George MD#### INSU ####[address] [phone] Director: Placido Pierce, [facility] Yfz3915 [place] [address] Lab Director: Emily George MD Cholesterol in VLDL [Mass/Vol] 68 mg/dL High 1-30 [facility] Comment on above: Performed By: #### L IPR, GLYHGB ####[facility] [address] [place] [address] Lab Director: Placido Pierce MD#### CP ####[facility] Rzl4938 [place], [place] [phone] Director: Emily George MD#### INSU ####[facility] [place], [place] [phone] Director: Placido Pierce, [facility] Nlp4424 [place], [place] [phone] Director: Emily George MD Cholesterol.total/Chol esterol in HDL [Mass ratio] 5.1 {ratio} High <5.0 [facility] Comment on above: Performed By: #### L IPR, GLYHGB ####[facility] [address] [place], [place] [phone] Director: Placido Pierce MD#### CP ####[facility] Ycs5271 [place] [address] Lab Director: Emily George MD#### INSU ####[facility] [place], [place] [phone] Director: Placido Pierce, [facility] Dwi0195 [place], [place] [phone] Director: Emily George MD Triglyceride [Mass/Vol] 341 mg/dL High <150 [facility] Comment on above: Result Comment: Triglyceride Guidelines: <150 Desirable 150-199 Borderline 200-499 High >499 Very high Based on AHA Guidelines for fasting triglyceride, July 2012. Performed By: #### L IPR, GLYHGB ####[facility] [address] [place], [place] [phone] Director: Placido Pierce MD#### CP ####[facility] [address] [place], [place] [phone] lab Director: Emily George MD#### INSU ####[facility] [place], [place] [phone] lab Director: Placido Pierce [facility] [address] [place] [address] [facility] Director: Emily George MD No Panel Informationon 04-14 [facility] MR Foot - right WO and [...] again superimposed infection be difficult to include. [facility] RIS CONSOLIDATED EXAM: MRI FOOT [...] atrophic change likely related to chronic neuropathy. [facility] CONSOLIDATED Hesham Mcarthur MD - [...] superimposed infection be difficult to include. [facility] MR Foot - right WO and W con trast IVOrdered By: Hesham Mcarthur on 04-12-2025 Sid [facility] [employer] Work Phone: MRI FOOT RIGHT W WO [...] by: Hesham Mcarthur MD 04/12/25 Final result [facility] Radiology, Radiologist, MD - 04/12/2025 EXAM: MRI [...] by: Hesham Mcarthur MD 04/12/25 Final result [facility] MRI FOOT RIGHT W WO CONTRAST [...] Hesham Mcarthur MD 04/12/25 Final result Normal [facility] Radiology Study observation (narrative) [facility] MRI FOOT RIGHT W WO CONTRAST Ordered By: Radiologist Radiology on 04-12-2025 [facility] Work Phone: BUN & Creatinineon 5 Creatinine [Mass/Vol] 1.3 mg/dL High 0.5 - 0.9 mg/dL [facility] Est, Glom Filt Rate 52 Low - PINF [facility] Comment on above: These results are [...] Interpretation and review of laboratory results Abnormal [facility] Urea nitrogen [Mass/Vol] 15 mg/dL 6 - 20 mg/dL [facility] BUN + Creatinineon 5 Creatinine [Mass/Vol] 1.3 mg/dL High 0.5-0.9 [facility] Comment on above: Performed By: #### B UNCRT #### [facility] [address] [place] [address] Photographer'S Assistant: Emily George MD GFR/1.73 sq M.predicted among non-blacks MDRD (S/P/Bld) [Vol rate/Area] 52 mL/min/{1.73_m2} Low >60 [facility] Comment on above: Result Comment: These results [...] secretion. Performed By: #### B UNCRT #### [facility] [address] [place], [place] [phone] Photographer'S Assistant: Emily George MD Urea nitrogen [Mass/Vol] 15 mg/dL Normal 6-20 [facility] Comment on above: Performed By: #### B UNCRT #### [facility] [address] [place] [address] Photographer'S Assistant: Emily George MD MHPT BUN + CREATININEon Creatinine [Mass/Vol] 1.3 mg/dL High 0.5 - 0.9 mg/dL [facility] Interpretation and review of laboratory results Abnormal [facility] MHPT EGFR 52 Low - PINF [facility] Comment on above: These results are [...] [Mass/Vol] 15 mg/dL 6 - 20 mg/dL [facility] - right WO and W con trast Chay 04-11-2025 Radiology Study observation (narrative) Sid [facility] XR Foot - right 2 [facility] Result: XRAY RIGHT FOOT: AP/OBL- No fx. Lis franc diastasis concern with deformity. DP 2 mild cortical disruption 1-2mm possible. No bone density changes [facility] Cult,Woundon 04-08-2025 Cult,Wound Specimen Description .TOE [...] Trimethoprim/Sulfa <=10 SUSCEPTIBLE Vancomycin 1 SUSCEPTIBLE Susceptible [facility] Comment on above: Performed By: #### W DC ####[facility] [place] [address] Lab Director: Placido Pierce [facility] [address] [place], [place] [phone] Lab Director: Emily George MD XR Foot - right 2 [facility] Study observation (narrative) [facility] Brain Natri. Peptideon 04-04 Natriuretic peptide B (Bld) [Mass/Vol] 262 pg/mL Normal <300 [facility] Comment on above: Result Comment: An a ge-independent cutoff point of 300 pg/ml has a 98% negative predictive value excluding acute heart failure. Performed By: #### B RADIOGRAPHER CARDIAC CATHETERIZATION, SED, CRP #### [facility] [address] [place] [address] Photographer'S Assistant: Emily George MD Brain Natriuretic Peptideon 04-04-2025 Natriuretic peptide B (Bld) [Mass/Vol] 262 pg/mL NINF - 300 pg/mL [facility] Comment on above: An age-independent c utoff point of 300 pg/ml has a 98% negative predictive value excluding acute heart failure. C-Reactive Proteinon 025 CRP High sensitivity method [Mass/Vol] 46.7 mg/L High 0.0 - 5.0 mg/L [facility] Interpretation and review of laboratory results Abnormal [facility] CRP [Mass/Vol] 46.7 mg/L High 0.0-5.0 [facility] Comment on above: Performed By: #### B RADIOGRAPHER CARDIAC CATHETERIZATION, SED, CRP #### [facility] [address] [place], [place] [phone] Photographer'S Assistant: Emily George MD CBC with Auto Differentialon 04-04-2025 Basophils (Bld) [#/Vol] 0.02 10*3/uL [facility] Basophils/100 WBC (Bld) 0 % 0 - 2 % [facility] Eosinophils (Bld) [#/Vol] 0.07 10*3/uL [facility] Eosinophils/100 WBC (Bld) 1 % 0 - 5 % [facility] Erythrocyte distribution width (RBC) [Ratio] 18.4 % High 12.1 - 15.2 % [facility] Hematocrit (Bld) [Volume fraction] 30 % Low 36.0 - 46.0 % [facility] Hemoglobin (Bld) [Mass/Vol] 9.6 g/dL Low 12.0 - 16.0 g/dL [facility] Immature granulocytes (Bld) [#/Vol] 0.13 10*3/uL [facility] Immature granulocytes/100 WBC (Bld) 2 % 0 - 5 % [facility] Interpretation and review of laboratory results Abnormal [facility] Lymphocytes/100 WBC (Bld) 23 % 15 - 40 % [facility] Lymphocytes/100 WBC (Bld) 1.39 % [facility] MCH (RBC) [Entitic mass] 27 pg 26.0 - 34.0 pg [facility] MCHC (RBC) [Mass/Vol] 32 g/dL 31.0 - 37.0 g/dL [facility] MCV (RBC) [Entitic vol] 84.3 fL 80.0 - 100.0 fL [facility] Monocytes/100 WBC (Bld) 6 % 4 - 8 % [facility] Monocytes/100 WBC (Bld) 0.37 % [facility] Neutrophils/100 WBC (Bld) 68 % 47 - 75 % [facility] Platelet mean volume (Bld) [Entitic vol] 11.7 fL 6.0 - 12.0 fL [facility] Platelets (Bld) [#/Vol] 186 10*3/uL [facility] RBC (Bld) [#/Vol] 3.56 10*6/uL Low 4.00 - 5.2 0 m/uL [facility] Segmented neutrophils/100 WBC (Bld) 4.09 % [facility] WBC other (Bld) [#/Vol] 6.1 [facility] CBC with Diffon 04-04-2025 Abs. Basophil 0.02 k/uL Normal 0.00-0.20 [facility] Comment on above: Performed By: #### C DP #### [facility] [address] [place] [address] Photographer'S Assistant: Emily George MD Abs.Imm.Granulocyte 0.13 k/uL Normal 0.00-0.30 [facility] Comment on above: Performed By: #### C DP #### [facility] [address] [place] [address] Photographer'S Assistant: Emily George MD Abs.Neutrophil (Seg) 4.09 k/uL Normal 2.5-7.0 [facility] Comment on above: Performed By: #### C DP #### [facility] [address] [place] [phone] Photographer'S Assistant: Emily George MD Basophils/100 WBC (Bld) 0 % Normal 0-2 [facility] Comment on above: Performed By: #### C DP #### [facility] [address] [place] [phone] Photographer'S Assistant: Emily George MD Eosinophils (Bld) [#/Vol] 0.07 10*3/uL Normal 0.00-0.40 [facility] Comment on above: Performed By: #### C DP #### [facility] [address] [place], [place] [phone] Photographer'S Assistant: Emily George MD Eosinophils/100 WBC (Bld) 1 % Normal 0-5 [facility] Comment on above: Performed By: #### C DP #### [facility] [address] [place] [phone] Photographer'S Assistant: Emily George MD Erythrocyte distribution width (RBC) [Ratio] 18.4 % High 12.1-15.2 [facility] Comment on above: Performed By: #### C DP #### [facility] [address] [place] [address] Photographer'S Assistant: Emily George MD Hematocrit (Bld) [Volume fraction] 30.0 % Low 36.0-46.0 [facility] Comment on above: Performed By: #### C DP #### [facility] [address] [place] [address] Photographer'S Assistant: Emily Geogre MD Hemoglobin (Bld) [Mass/Vol] 9.6 g/dL Low 12.0-16.0 [facility] Comment on above: Performed By: #### C DP #### [facility] [address] [place] [address] Photographer'S Assistant: Emily George MD Immature granulocytes/100 WBC (Bld) 2 % Normal 0-5 [facility] Comment on above: Performed By: #### C DP #### [facility] [address] [place] [address] Photographer'S Assistant: Emily George MD Lymphocytes (Bld) [#/Vol] 1.39 10*3/uL Normal 1.00-4.80 [facility] Comment on above: Performed By: #### C DP #### [facility] [address] [place] [address] Photographer'S Assistant: Emily George MD Lymphocytes/100 WBC (Bld) 23 % Normal 15-40 [facility] Comment on above: Performed By: #### C DP #### [facility] [address] [place] [address] Photographer'S Assistant: Emily George MD MCH (RBC) [Entitic mass] 27.0 pg Normal 26.0-34.0 [facility] Comment on above: Performed By: #### C DP #### [facility] [address] [place] [address] Photographer'S Assistant: Emily George MD MCHC (RBC) [Mass/Vol] 32.0 g/dL Normal 31.0-37.0 [facility] Comment on above: Performed By: #### C DP #### [facility] [address] [place] [address] Photographer'S Assistant: Emily George MD MCV (RBC) [Entitic vol] 84.3 fL Normal 80.0-100.0 [facility] Comment on above: Performed By: #### C DP #### [facility] [address] [place] [address] Photographer'S Assistant: Emily George MD Monocytes (Bld) [#/Vol] 0.37 10*3/uL Normal 0.00-1.00 [facility] Comment on above: Performed By: #### C DP #### [facility] [address] [place] [address] Photographer'S Assistant: Emily George MD Monocytes/100 WBC (Bld) 6 % Normal 4-8 [facility] Comment on above: Performed By: #### C DP #### [facility] [address] [place] [address] Photographer'S Assistant: Emily George MD Neutrophil (Seg) 68 % Normal 47-75 [facility] Comment on above: Performed By: #### C DP #### [facility] [address] [place] [address] Photographer'S Assistant: Emily George MD Platelet mean volume (Bld) [Entitic vol] 11.7 fL Normal 6.0-12.0 [facility] Comment on above: Performed By: #### C DP #### [facility] [address] [place] [address] Photographer'S Assistant: Emily George MD Platelets (Bld) [#/Vol] 186 10*3/uL Normal 140-450 [facility] Comment on above: Performed By: #### C DP #### [facility] [address] [place] [address] Photographer'S Assistant: Emily George MD RBC (Bld) [#/Vol] 3.56 10*6/uL Low 4.00-5.20 [facility] Comment on above: Performed By: #### C DP #### [facility] [address] [place] [address] Photographer'S Assistant: Emily George MD WBC (Bld) [#/Vol] 6.1 10*3/uL Normal 3.5-11.0 [facility] Comment on above: Performed By: #### C DP #### [facility] [address] [place] [address] Photographer'S Assistant: Emily George MD No Panel Informationon 04-04 [...] blastic bony lesions. There is normal mineralization. [facility] Daksha Garcia MD - [...] Postsurgical changes partially imaged on the left. [facility] No Panel InformationOrdered By: Daksha Hannah on 04-04-2025 [facility] Work Phone: Sedimentation Rateon 025 ESR Photometric method (Bld) [Velocity] 32 High [facility] Interpretation and review of laboratory results Abnormal [facility] Sedimentation Rate 32 mm/Hr High 0-20 [facility] Comment on above: Performed By: #### B RADIOGRAPHER CARDIAC CATHETERIZATION, SED, CRP #### [facility] [address] [place] [address] Photographer'S Assistant: Emily George MD XR TOE LEFT (MIN [...] Daksha Hannah MD 04/04/25 Final result Normal [facility] XR TOE RIGHT (MIN 2 VIEWS)on [...] Daksha Hannah MD 04/04/25 Final result Normal [facility] XR Toes - left 2 [facility] Study observation (narrative) [facility] XR Toes - right 2 [facility] Study observation (narrative) [facility] BRIAN DIGITAL SCREEN BILA TERALon 02-28-2025 [facility] BRIAN DIGITAL SCREEN BILATERAL HISTORY: [...] be mailed to the patient. Performing Facility: [place] [address] Interpreted by: Micky Lauren Jr., MD Signed by: Micky Lauren Jr., MD 02/28/25 Final result Normal [facility] Comp Metabolic Profon 2024 Albumin [Mass/Vol] 3.8 g/dL Normal 3.5-5.2 [facility] Comment on above: Performed By: #### G LYHGB, LIPR, LDLDIR ####[facility] [place] [address] Lab Director: Placido Pierce MD#### CP ####[facility] Ydg[address]66 [place] [address] Lab Director: Emily George MD Alkaline Phos 115 U/L High 35-104 [facility] Comment on above: Performed By: #### G LYHGB, LIPR, LDLDIR ####[place] [address] [place] [address] Lab Director: Placido Pierce MD#### CP ####[facility] Zad4827 [place] [address] Lab Director: Emily George MD ALT [Catalytic activity/Vol] 11 U/L Normal 5- [facility] Comment on above: Performed By: #### G LYHGB, LIPR, LDLDIR ####[place] [address] [place] [address] Lab Director: Placido Pierce MD#### CP ####[facility] Rov8094 [place] [address] Lab Director: Emily George MD Anion gap [Moles/Vol] 12 mmol/L Normal 9-17 [facility] Comment on above: Performed By: #### G LYHGB, LIPR, LDLDIR ####[place] [address] [place] [address] Lab Director: Placido Pierce MD#### CP ####[facility] Xfk8548 [place] [address] Lab Director: Emily George MD AST [Catalytic activity/Vol] 14 U/L Normal <32 [facility] Comment on above: Performed By: #### G LYHGB, LIPR, LDLDIR ####[facility] [place] [address] Lab Director: Placido Pierce MD#### CP ####[facility] Wnb1563 [place] [address] Lab Director: Emily George MD Bilirubin [Mass/Vol] 0.4 mg/dL Normal 0.3-1.2 [facility] Comment on above: Performed By: #### G LYHGB, LIPR, LDLDIR ####[address] [address] Lab Director: Placido Pierce MD#### CP ####[facility] [address] [place] [address] Lab Director: Emily George MD BUN/CRE Ratio 19 Normal 9-20 [facility] Comment on above: Performed By: #### G LYHGB, LIPR, LDLDIR ####[address] [address] Lab Director: Placido Pierce MD#### CP ####[facility] Vfk3461 [place] [address] Lab Director: Emily George MD Calcium [Mass/Vol] 9.3 mg/dL Normal 8.6-10.4 [facility] Comment on above: Performed By: #### G LYHGB, LIPR, LDLDIR ####[address] [address] Lab Director: Placido Pierce MD#### CP ####[facility] Ipq2572 [place], [place] [address] Lab Director: Emily George MD Chloride [Moles/Vol] 102 mmol/L Normal 98-107 [facility] Comment on above: Performed By: #### G LYHGB, LIPR, LDLDIR ####[place] [address] [place] [address] Lab Director: Placido Pierce MD#### CP ####[facility] Siq[address]205 [place], [place] [phone] Lab Director: Emily George MD CO2 [Moles/Vol] 25 mmol/L Normal 20-31 [facility] Comment on above: Performed By: #### G LYHGB, LIPR, LDLDIR ####[address] [address] Lab Director: Placido Pierce MD#### CP ####[facility] Guc7143 [place], [place] [address] Lab Director: Emily George MD Creatinine [Mass/Vol] 1.1 mg/dL High 0.5-0.9 [facility] Comment on above: Performed By: #### G LYHGB, LIPR, LDLDIR ####[address] [address] Lab Director: Placido Pierce MD#### CP ####[facility] Wbj7117 [place], [place] [phone] Lab Director: Emily George MD GFR/1.73 sq M.predicted among non-blacks MDRD (S/P/Bld) [Vol rate/Area] 63 mL/min/{1.73_m2} Normal >60 [facility] Comment on above: Result Comment: These results [...] Performed By: #### G LYHGB, LIPR, LDLDIR ####[place] [address] [place] [address] Lab Director: Placido Pierce MD#### CP ####[facility] Idr7736 [place] [address] Lab Director: Emily George MD Glucose [Mass/Vol] 125 mg/dL High 70-99 [facility] Comment on above: Performed By: #### G LYHGB, LIPR, LDLDIR ####[address] [address] Lab Director: Placido Pierce MD#### CP ####[facility] [address] [place] [address] Lab Director: Emily George MD Potassium [Moles/Vol] 4.2 mmol/L Normal 3.7-5.3 [facility] Comment on above: Performed By: #### G LYHGB, LIPR, LDLDIR ####[address] [address] Lab Director: Placido Pierce MD#### CP ####[facility] [address] [place] [address] Lab Director: Emiyl George MD Protein [Mass/Vol] 7.2 g/dL Normal 6.4-8.3 [facility] Comment on above: Performed By: #### G LYHGB, LIPR, LDLDIR ####[address] [address] Lab Director: Placido Pierce MD#### CP ####[facility] Axi3639 [place], [place] [id number] lab Director: Emily George MD Sodium [Moles/Vol] 139 mmol/L Normal 135-144 [facility] Comment on above: Performed By: #### G LYHGB, LIPR, LDLDIR ####[facility] [address] [place], [place] [phone] lab Director: Placido Pierce MD#### CP ####[facility] Jxq6706 [place], [place] [address] lab Director: Emily George MD Urea nitrogen [Mass/Vol] 21 mg/dL High 6-20 [facility] Comment on above: Performed By: #### G LYHGB, LIPR, LDLDIR ####[facility] [facility] [address] [place], [place] [id number] lab Director: Placido Pierce MD#### CP ####[facility] [address] [place], [place] [id number] lab Director: Emily George MD Comprehensive Metabolic Pane [facility] 11-14-2024 Albumin [Mass/Vol] 3.8 g/dL 3.5 - 5.2 g/dL [facility] ALP [Catalytic activity/Vol] 115 U/L High 35 - 104 U/L [facility] ALT [Catalytic activity/Vol] 11 U/L 5 - 33 U/L [facility] Anion gap [Moles/Vol] 12 mmol/L 9 - 17 mmol/L [facility] AST [Catalytic activity/Vol] 14 U/L NINF - 32 U/L [facility] Bilirubin [Mass/Vol] 0.4 mg/dL 0.3 - 1 .2 mg/dL [facility] Calcium [Mass/Vol] 9.3 mg/dL 8.6 - 10. 4 mg/dL [facility] Chloride [Moles/Vol] 102 mmol/L 98 - 10 7 mmol/L [facility] CO2 [Moles/Vol] 25 mmol/L 20 - 31 mmol/L [facility] Creatinine [Mass/Vol] 1.1 mg/dL High 0.5 - 0.9 mg/dL [facility] Est, Glodieudonne Filt Rate 63 - PINF [facility] Comment on above: These results are [...] 125 mg/dL High 70 - 99 mg/dL [facility] Interpretation and review of laboratory results Abnormal [facility] Potassium [Moles/Vol] 4.2 mmol/L 3.7 - 5.3 mmol/L [facility] Protein [Mass/Vol] 7.2 g/dL 6.4 - 8.3 g/dL [facility] Sodium [Moles/Vol] 139 mmol/L 135 - 144 mmol/L [facility] Urea nitrogen [Mass/Vol] 21 mg/dL High 6 - 20 mg/dL [facility] Urea nitrogen/Creatinine [Mass ratio] 19 mg/mg 9 - 20 [facility] Hemoglobin A1Con 11-14-2024 Average glucose Estimated from glycated hemoglobin (Bld) [Mass/Vol] 103 mg/dL [facility] Comment on above: The ADA and AACC rec ommend providing the estimated average glucose result to permit better patient understanding of their HBA1c result. HbA1c (Bld) [Mass fraction] 5.2 % 4.0 - 6.0 % [facility] Glucose [Mass/Vol] 103 mg/dL Normal [facility] Comment on above: Result Comment: The ADA and AACC recommend providing the estimated average glucose result to permit better patient understanding of their HBA1c result. Performed By: #### G LYHGB, LIPR, LDLDIR ####[address] [place] [address] [facility] Director: Placido Pierce MD#### CP ####[facility] [address] [place], [place] [id number] lab Director: Emily George MD HbA1c (Bld) [Mass fraction] 5.2 % Normal 4.0-6.0 [facility] Comment on above: Performed By: #### G LYHGB, LIPR, LDLDIR ####[facility] [address] [place], [place] [address] Lab Director: Placido Pierce MD#### CP ####[facility] [address] [place], [place] [id number] lab Director: Emily George MD LDL Chol, Directon LDL Chol, Direct 94 mg/dL Normal <100 [facility] Comment on above: Performed By: #### G LYHGB, LIPR, LDLDIR ####[facility] [address] [place], [place] [id number] lab Director: Placido Pierce MD#### CP ####[facility] [address] [place], [place] [id number] lab Director: Emily George MD LDL Cholesterol, Directon Cholesterol in LDL [Mass/Vol] 94 mg/dL NINF - 100 mg/dL [facility] Lipid Panelon 11-14-2024 Cholesterol [Mass/Vol] 179 mg/dL 0 - 199 mg/dL [facility] Comment on above: Cholesterol Guidelines: <200 Desirable 200-240 Borderline >240 Undesirable Cholesterol in HDL [Mass/Vol] 31 mg/dL Low 40 - PINF mg/dL [facility] Comment on above: HDL Guidelines: <40 Undesirable 40-59 Borderline >59 Desirable Cholesterol in LDL [Mass/Vol] Can not be calculated 0 - 100 mg/dL [facility] Comment on above: LDL Guidelines: <100 Desirable 100-129 Near to/above Desirable 130-159 Borderline >159 Undesirable Direct (measured) LDL and calculated LDL are not interchangeable tests. Cholesterol in VLDL [Mass/Vol] Can not be calculated 1 - 30 mg/dL [facility] Cholesterol.total/Chol esterol in HDL [Mass ratio] 5.8 {ratio} [facility] Interpretation and review of laboratory results Abnormal [facility] Triglyceride [Mass/Vol] 407 mg/dL High NINF - 150 mg/dL [facility] Comment on above: Triglyceride Guidelines: <150 Desirable 150-199 Borderline 200-499 High >499 Very high Based on AHA Guidelines for fasting triglyceride, July 2012. [facility] Lipid Profileon 11-14-2024 Cholesterol [Mass/Vol] 179 mg/dL Normal 0-199 [facility] Comment on above: Result Comment: Cholesterol Guidelines: <200 Desirable 200-240 Borderline >240 Undesirable Performed By: #### G LYHGB, LIPR, LDLDIR ####[facility] [address] [place] [address] Lab Director: Placido Pierce MD#### CP ####[facility] [address] [place], [place] [address])[phone] Director: Emily George MD Cholesterol in HDL [Mass/Vol] 31 mg/dL Low >40 [facility] Comment on above: Result Comment: HDL Guidelines: <40 Undesirable 40-59 Borderline >59 Desirable Performed By: #### G LYHGB, LIPR, LDLDIR ####[facility] [address] [place], [place] [address])[phone] Director: Placido Pierce MD#### CP ####[facility] [address] [place], [place] [address] Lab Director: Emily George MD Cholesterol,LDL Can not be calculated Normal 0-100 [facility] Comment on above: Result Comment: LDL Guidelines: <100 Desirable 100-129 Near to/above Desirable 130-159 Borderline >159 Undesirable Direct (measured) LDL and calculated LDL are not interchangeable tests. Performed By: #### G LYHGB, LIPR, LDLDIR ####[facility] [address] [place], [place] [phone] Director: Placido Pierce MD#### CP ####[facility] [address] [place], [place] [phone] Director: Emily George MD Cholesterol,VLDL Can not be calculated Normal 1-30 [facility] Comment on above: Performed By: #### G LYHGB, LIPR, LDLDIR ####[facility] [address] [place], [place] [phone] Director: Placido Pierce MD#### CP ####[facility] [address] [place] [address] Lab Director: Emily George MD Cholesterol.total/Chol esterol in HDL [Mass ratio] 5.8 {ratio} Normal [facility] Comment on above: Performed By: #### G LYHGB, LIPR, LDLDIR ####[facility] [place] [address] Lab Director: Placido Pierce MD#### CP ####[facility] [address] [place] [address] Lab Director: Emily George MD Triglyceride [Mass/Vol] 407 mg/dL High <150 [facility] Comment on above: Result Comment: Triglyceride Guidelines: <150 Desirable 150-199 Borderline 200-499 High >499 Very high Based on AHA Guidelines for fasting triglyceride, July 2012. 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 (Follow if greater than or equal to 0.5 cm annually until 5 years according to ACR TI-RADS recommendations). Continued follow-up annually is recommended through 2026. [facility] EXAM: US THYROID [...] 1.7 x 1.3 cm. Isthmus: 0.2 cm [facility] Micky Lauren Jr., [...] Continued follow-up annually is recommended through 2026. [facility] [employer] US Thyroid glandOrdered By: Micky Lauren on 09-07-2024 [facility] [employer] Work Phone: US Thyroid glandon Radiology Study observation (narrative) [facility] [employer] Magnesiumon 05-10-2024 Magnesium [Mass/Vol] 2.2 mg/dL 1.6 - 2 .6 mg/dL [facility] No Panel Informationon 05-10 [facility] Protein / creatinine ratio, urineon 05-10-2024 Creatinine (U) [Mass/Vol] 132.0 mg/dL 28.0 - 217.0 mg/dL [facility] [employer] Protein (U) [Mass/Vol] 9 mg/dL [facility] [employer] Comment on above: No normal range esta blished. Urine Total Protein Creatinine Ratio 0.07 [facility] Renal Function Panelon 05-10 Albumin [Mass/Vol] 4.2 g/dL 3.5 - 5.2 g/dL [facility] Anion gap [Moles/Vol] 15 mmol/L 9 - 17 mmol/L [facility] Calcium [Mass/Vol] 9.2 mg/dL 8.6 - 10. 4 mg/dL [facility] Chloride [Moles/Vol] 101 mmol/L 98 - 10 7 mmol/L [facility] CO2 [Moles/Vol] 25 mmol/L 20 - 31 mmol/L [facility] Creatinine [Mass/Vol] 1.3 mg/dL High 0.5 - 0.9 mg/dL [facility] Est, Glom Filt Rate 52 Low - PINF [facility] Comment on [...] 141 mg/dL High 70 - 99 mg/dL [facility] Interpretation and review of laboratory results Abnormal [facility] Phosphate [Mass/Vol] 3.8 mg/dL 2.6 - 4 .5 mg/dL [facility] Potassium [Moles/Vol] 4.0 mmol/L 3.7 - 5.3 mmol/L [facility] Sodium [Moles/Vol] 141 mmol/L 135 - 144 mmol/L [facility] Urea nitrogen [Mass/Vol] 19 mg/dL 6 - 20 mg/dL [facility] Urea nitrogen/Creatinine [Mass ratio] 15 mg/mg 9 - 20 [facility] Urinalysison 05-10-2024 Bilirubin Ql (U) Negative NEGATIVE [facility] Clarity (U) Clear Clear [facility] Color (U) Yellow Yellow [facility] Comment [facility] Glucose Test strip (U) [Mass/Vol] Negative NEGATIVE mg/dL [facility] Hemoglobin Auto test strip Ql (U) Negative NEGATIVE [facility] Interpretation and review of laboratory results Abnormal [facility] Ketones (U) [Mass/Vol] Negative NEGAT BEATRIZ mg/dL [facility] Leukocyte esterase Test strip Ql (U) Negative NEGATIVE [facility] Nitrite Ql (U) Negative NEGATIVE [facility] pH (U) 5.0 [pH] 5.0 - 8.0 [facility] Protein (U) [Mass/Vol] TRACE Abnormal NEGAT BEATRIZ mg/dL [facility] Specific gravity (U) [Rel density] 1.020 1.005 - 1.030 [facility] Urobilinogen Qn (U) Normal 0.0 - 1. 0 EU/dL [facility] SID [facility] Ananda 02-15-2024 L Specimen: [id number] Received: 02/16/24 Status: ARLEN So Num: [id number] Spec Type: Surgical Subm Dr: Frances Harris DPM, MS Tissues: A Soft Tissue/Surgical Margin-Other than Tumor,Mass,Lip or Becka (LT MID FOOT CH Procedures: HE/2, Gross/Micro L4 Age/ Patient Sex Location Account Attending Physician Celina Gaspar 43/F [facility] [id number] Frances Harris DPM, MS SPEC NUM: [id number] RECD: 02/16/24 STATUS: ARLEN SO NUM: [id number] MAYTE: 02/15/[address]: Frances Harris DPM, [...] sections reveal firm, yellow spongy bone matrix. [employer] sections are submitted following decalcification in A1?A2. Clinical history: varus deformity left ankle, charcot join left ankle and foot. CPT Codes 73470 Specimen: [id number] Received: 02/16/24 Status: ARLEN So Num: [id number] Spec Type: Surgical Subm Dr: Frances Harris,INDER, MS Tissues: A Soft Tissue/Surgical Margin-Other than Tumor,Mass,Lip or Becka (LT MID FOOT CH Procedures: HE/2, Gross/Micro L4 Patient: Celina Gaspar [id number] (Continued) Signed (signature on file) Juan José Yu MD 02/17/24 1549 Normal [facility] Lipid Panelon 06-15-2023 Cholesterol [Mass/Vol] 174 mg/dL NINF - 200 mg/dL [facility] Comment on above: Cholesterol Guidelines: <200 Desirable 200-240 Borderline >240 Undesirable Cholesterol in HDL [Mass/Vol] 30 mg/dL Low 40 - PINF mg/dL [facility] Comment on above: HDL Guidelines: <40 Undesirable 40-59 Borderline >59 Desirable Cholesterol in LDL [Mass/Vol] 77 mg/dL 0 - 130 mg/dL [facility] Comment on above: LDL Guidelines: <100 Desirable 100-129 Near to/above Desirable 130-159 Borderline >159 Undesirable Direct (measured) LDL and calculated LDL are not interchangeable tests. Cholesterol.total/Chol esterol in HDL [Mass ratio] 5.8 {ratio} High NINF - 5 [facility] Interpretation and review of laboratory results Abnormal [facility] Triglyceride [Mass/Vol] 334 mg/dL High NINF - 150 mg/dL [facility] Comment on above: Triglyceride Guidelines: <150 Desirable 150-199 Borderline 200-499 High >499 Very high Based on AHA Guidelines for fasting triglyceride, July 2012. [facility] BUN & Creatinineon 3 Creatinine [Mass/Vol] 1.08 mg/dL High 0.50 - 0.90 mg/dL [facility] GFR/1.73 sq M.predicted MDRD (S/P/Bld) [Vol rate/Area] - PINF [facility] Comment on above: These results are [...] 21 mg/dL High 6 - 20 mg/dL [facility] CBC with Auto Differentialon 02-05-2023 Absolute Eos # 0.10 [facility] Absolute Lymph # 1.70 [facility] URS [facility] Absolute Laporte # 0.50 [facility] RS [facility] Basophils (Bld) [#/Vol] 0.00 10*3/uL [facility] Basophils/100 WBC (Bld) 1 % 0 - 2 % [facility] Differential Type YES [facility] Eosinophils/100 WBC (Bld) 1 % 0 - 5 % [facility] Hematocrit (Bld) [Volume fraction] 36.2 % 36 - 46 % [facility] Hemoglobin (Bld) [Mass/Vol] 12.2 g/dL 12.0 - 16.0 g/dL [facility] Interpretation and review of laboratory results Abnormal [facility] Lymphocytes/100 WBC (Bld) 23 % 15 - 40 % [facility] MCH (RBC) [Entitic mass] 28.7 pg 26 - 34 pg [facility] MCHC (RBC) [Mass/Vol] 33.7 g/dL 31 - 37 g/dL B ON [facility] MCV (RBC) [Entitic vol] 85.3 fL 80 - 100 fL [facility] Monocytes/100 WBC (Bld) 7 % 4 - 8 % [facility] Platelet distribution width (Bld) [Ratio] 18.1 % High 12.1 - 15.2 % [facility] Platelets (Bld) [#/Vol] 150 10*3/uL [facility] RBC (Bld) [#/Vol] 4.25 10*6/uL 4.0 - 5.2 m/uL [facility] Segmented neutrophils/100 WBC (Bld) 68 % 47 - 75 % [facility] Segs Absolute 5.30 [facility] WBC (Bld) [#/Vol] 7.6 10*3/uL [facility] Chlorideon 02-05-2023 Chloride [Moles/Vol] 99 mmol/L 98 - 10 7 mmol/L [facility] Glucose, Randomon 02-05-2023 Glucose [Mass/Vol] 107 mg/dL High 70 - 99 mg/dL [facility] No Panel Informationon 02-05 Interpretation and review of laboratory results Abnormal [facility] Potassiumon 02-05-2023 Potassium [Moles/Vol] 4.6 mmol/L 3.7 - 5.3 mmol/L [facility] Sodiumon 02-05-2023 Sodium [Moles/Vol] 134 mmol/L Low 135 - 144 mmol/L [facility] Wet Prep, Genitalon 02-06-20 Interpretation and review of laboratory results Abnormal [facility] Microorganism or agent identified Nom (Unsp spec) FEW WBC Abnormal [facility] Microorganism or agent identified Nom (Unsp spec) MODERATE EPITHELIAL CELLS Abnormal [facility] Microorganism or agent identified Nom (Unsp spec) MODERATE BACTERIA Abnormal [facility] Microorganism or agent identified Nom (Unsp spec) NO TRICHOMONAS SEEN [facility] Microorganism or agent identified Nom (Unsp spec) NO FUNGAL ELEMENTS SEEN [facility] Microorganism or agent identified Nom (Unsp spec) NO CLUECELL SEEN [facility] Specimen Description .VAGINA [facility] FOOT LT WO CONon 02-05-20 23 [...] EMILY ELY Date: 2023-02-04 20:14 Normal [facility] XR ANKLE LEFT 3+ VIEWS (ABDOULAYE [...] ThuJan 06, 2023 6:11:26 PM EDT Normal [facility] Comment on above: [...] fragmentation of the navicular and cuneiform bones. [facility] EXAM: MRI FOOT [...] osteomyelitis. No nonenhancing abscess pockets are identified. [facility] Mike Villavicencio MD [...] fragmentation of the navicular and cuneiform bones. [employer] Phone: Radiology Study observation (narrative) [employer] Phone: MRI FOOT LEFT W WO CONTRASTO rdered By: Mike Villavicencio on 06-25-2022 [employer] Phone: XR FOOT LEFT (2 VIEWS)on There is a linear metallic foreign body projecting between the second and third metatarsals. There is also a metallic foreign body within the lower leg. There is fragmentation of the navicular as well as of all 3 cuneiforms. The appearance is consistent with the patient's history of neuropathy. [facility] EXAM: XR FOOT LEFT (2 VIEWS) HISTORY: M79.5. The patient is a 42-year-old female. Evaluate for foreign body. COMPARISON: None. [facility] Mike Villavicencio MD [...] consistent with the patient's history of neuropathy. 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 Clinical follow up recommended. Subcentimeter highly suspicious nodule in the right thyroid lobe 7 mm in greatest dimension. This meets criteria for annual follow up for 5 years. It does not meet criteria for FNA. [facility] EXAM: US HEAD [...] fat without shadowing, suggestive of a lipoma. [facility] Micky Lauren Jr., [...] It does not meet criteria for FNA. [facility] Work Phone: Radiology Study observation (narrative) [employer] Phone: US HEAD NECK SOFT TISSUE THY ROIDOrdered By: Micky Lauren on 05-27-2022 [facility] [employer] Phone: Rejection Notificationon Reason see below [facility] Comment on above: Result Comment: Unab le to perform testing; no specimen received. To perform testing the specimen will need to be recollected. No spec Performed By: #### R EJEC #### [facility] [address] [facility] [address] Rejected Test CXURN [facility] Comment on above: Performed By: #### R EJEC #### [facility] [address] [facility] [address] LDL Cholesterol, Directon Cholesterol in LDL [Mass/Vol] 84 mg/dL <100 [facility] [employer] [facility] [employer] CBC with Auto Differentialon 04-12-2022 Absolute Eos # 0.10 [facility] [employer] Absolute Lymph # 1.40 [facility] Absolute Laporte # 0.30 [facility] Basophils (Bld) [#/Vol] 0.00 10*3/uL [facility] Basophils/100 WBC (Bld) 1 % 0 - 2 % [facility] Differential Type YES [facility] Eosinophils/100 WBC (Bld) 1 % 0 - 5 % [facility] Hematocrit (Bld) [Volume fraction] 35.7 % Low 36 - 46 % [facility] Hemoglobin (Bld) [Mass/Vol] 12.0 g/dL 12.0 - 16.0 g/dL [facility] Interpretation and review of laboratory results Abnormal [facility] Lymphocytes/100 WBC (Bld) 25 % 15 - 40 % [facility] MCH (RBC) [Entitic mass] 28.0 pg 26 - 34 pg [facility] MCHC (RBC) [Mass/Vol] 33.7 g/dL 31 - 37 g/dL [facility] MCV (RBC) [Entitic vol] 83.3 fL 80 - 100 fL [facility] Monocytes/100 WBC (Bld) 5 % 4 - 8 % [facility] Platelet distribution width (Bld) [Ratio] 16.4 % High 12.1 - 15.2 % [facility] Platelets (Bld) [#/Vol] 168 10*3/uL [facility] RBC (Bld) [#/Vol] 4.29 10*6/uL 4.0 - 5.2 m/uL [facility] Segmented neutrophils/100 WBC (Bld) 68 % 47 - 75 % [facility] Segs Absolute 3.90 [facility] WBC (Bld) [#/Vol] 5.7 10*3/uL [facility] Comprehensive Metabolic Pane ananda 04-12-2022 Albumin [Mass/Vol] 4.2 g/dL 3.5 - 5.2 g/dL [facility] ALP (Bld) [Catalytic activity/Vol] 88 U/L 35 - 104 U/L [facility] ALT [Catalytic activity/Vol] 29 U/L 5 - 33 U/L [facility] Anion gap [Moles/Vol] 11 mmol/L 9 - 17 mmol/L [facility] AST [Catalytic activity/Vol] 27 U/L <32 [facility] Bilirubin [Mass/Vol] 0.65 mg/dL 0.30 - 1.20 mg/dL [facility] Calcium [Mass/Vol] 9.1 mg/dL 8.6 - 10. 4 mg/dL [facility] Chloride [Moles/Vol] 101 mmol/L 98 - 10 7 mmol/L [facility] CO2 [Moles/Vol] 28 mmol/L 20 - 31 mmol/L [facility] Creatinine [Mass/Vol] 1.04 mg/dL High 0.50 - 0.90 mg/dL [facility] Free PSA/Total PSA [Mass fraction] 6.8 g/dL 6.4 - 8.3 g/dL [facility] GFR >60 >60 mL/min [facility] GFR Non- 58 mL/min Low >60 [facility] GFR/1.73 sq M.predicted MDRD (S/P/Bld) [Vol rate/Area] [facility] Comment on above: Average GFR for 40-4 9 years old: 99 mL/min/1.73sq m Chronic Kidney Disease: <60 mL/min/1.73sq m Kidney failure: <15 mL/min/1.73sq m eGFR calculated using average adult body mass. Additional eGFR calculator available at: http://www.[employer]umo/multiple_crcl_2012.htm Glucose [Mass/Vol] 103 mg/dL High 70 - 99 mg/dL [facility] Interpretation and review of laboratory results Abnormal [facility] Potassium [Moles/Vol] 3.9 mmol/L 3.7 - 5.3 mmol/L [facility] Sodium [Moles/Vol] 140 mmol/L 135 - 144 mmol/L [facility] Urea nitrogen (BldV) [Mass/Vol] 13 mg/dL 6 - 20 mg/dL [facility] Urea nitrogen/Creatinine (Bld) [Mass ratio] 13 [facility] HIV Screenon 04-12-2022 HIV Ag/Ab Non-Reactive NONREACTIVE [facility] Comment on above: No laboratory eviden ce of HIV infection. If acute HIV infection is suspected, consider testing for HIV-1 RNA. [facility] Lipid Panelon 04-12-2022 Cholesterol [Mass/Vol] 184 mg/dL <200 [facility] Comment on above: Cholesterol Guidelines: <200 Desirable 200-240 Borderline >240 Undesirable Cholesterol in HDL [Mass/Vol] 30 mg/dL Low >40 [facility] Comment on above: HDL Guidelines: <40 Undesirable 40-59 Borderline >59 Desirable Cholesterol.total/Chol esterol in HDL [Mass ratio] 6.1 {ratio} High <5 [facility] Interpretation and review of laboratory results Abnormal [facility] LDL Cholesterol 0 - 130 mg/dL [facility] Comment on above: Calculation not jacqueline d for Triglyceride value greater than 400 mg/dL. Direct LDL reflexed LDL Guidelines: <100 Desirable 100-129 Near to/above Desirable 130-159 Borderline >159 Undesirable Direct (measured) LDL and calculated LDL are not interchangeable tests. Triglyceride [Mass/Vol] 460 mg/dL High <150 [facility] Comment on above: Triglyceride Guidelines: <150 Desirable 150-199 Borderline 200-499 High >499 Very high Based on AHA Guidelines for fasting triglyceride, July 2012. [facility] No Panel Informationon 04-12 [facility] TSH with Reflexon 04-12-2022 TSH Qn 0.99 m[IU]/L [facility] Urinalysis with MicroscopicO rdered By: Lita Weeks on 08-01-2021 - [employer] Work Phone: Amorphous, UA NOT REPORTED None [facility] Work Phone: Bacteria, UA RARE Abnormal None [facility] Work Phone: Bilirubin Urine Negative NEGATIVE [facility] Work Phone: Casts UA NOT REPORTED /LPF [facility] [employer] Work Phone: Color, UA Yellow Yellow [facility] Work Phone: Crystals, UA NOT REPORTED None /HPF [facility] Work Phone: Epithelial Cells UA 2 TO 5 /HPF [facility] Work Phone: Glucose, Ur Negative NEGATIVE [employer] Work Phone: Interpretation and review of laboratory results Abnormal [facility] Phone: Ketones Ql (U) Negative NEGATIVE [facility] Work Phone: Leukocyte esterase Test strip Ql (U) Negative NEGATIVE [facility] Work Phone: Mucus, UA NOT REPORTED None [facility] Work Phone: Nitrite, Urine Negative NEGATIVE [facility] Work Phone: Other Observations UA NOT REPORTED NOT REQ. [facility]: pH, UA 6.0 [facility] Work Phone: Protein, UA Negative NEGATIVE [facility] Phone: RBC, UA NOT REPORTED [facility] Work Phone: Renal Epithelial, UA NOT REPORTED 0 /HPF [facility] Work Phone: Specific Bonnie, UA 1.020 [facility] Work Phone: Trichomonas, UA NOT REPORTED None [employer] [facility] Work Phone: Turbidity UA Clear Clear [facility] Phone: Urinalysis Comments [facility] Phone: Urine Hgb Negative NEGATIVE [facility] Work Phone: Urobilinogen, Urine Normal Normal [facility] Phone: WBC, UA NOT REPORTED 0 /HPF [facility] Work Phone: Yeast, UA NOT REPORTED None [facility] Work Phone: [facility] Work Phone: Urinalysis with MicroscopicO rdered By: Lita Weeks on 07-11-2021 - [employer] Work Phone: Amorphous, UA NOT REPORTED None [employer] [facility] Work Phone: Bacteria, UA 3+ Abnormal None [facility] Work Phone: Bilirubin Urine Negative NEGATIVE [facility] Work Phone: Casts UA NOT REPORTED /LPF [facility] Work Phone: Color, UA Yellow Yellow [facility] Work Phone: Crystals, UA NOT REPORTED None /HPF [facility] Work Phone: Epithelial Cells UA 2 TO 5 /HPF [facility] Work Phone: Glucose, Ur Negative NEGATIVE [facility] Work Phone: Interpretation and review of laboratory results Abnormal [facility] Work Phone: Ketones Ql (U) Negative NEGATIVE [facility] Work Phone: Leukocyte esterase Test strip Ql (U) 2+ Abnormal NEGATIVE [facility] Work Phone: Mucus, UA NOT REPORTED None [facility] Work Phone: Nitrite, Urine Positive Abnormal NEGATIVE [facility] Work Phone: Other Observations UA NOT REPORTED NOT REQ. M [facility] [employer] Work Phone: pH, UA 6.0 [facility] Work Phone: Protein, UA Negative NEGATIVE [facility] Work Phone: RBC, UA NOT REPORTED [facility] Work Phone: Renal Epithelial, UA NOT REPORTED 0 /HPF [facility] Work Phone: Specific Bonnie, UA 1.025 [facility] [employer] Work Phone: Trichomonas, UA NOT REPORTED None [facility] Work Phone: Turbidity UA Hazy Abnormal Clear [facility] [employer] Work Phone: Urinalysis Comments [employer] Phone: Urine Hgb Negative NEGATIVE [employer] Phone: Urobilinogen, Urine Normal Normal [employer] Phone: WBC, UA 20 TO 50 0 /HPF [employer] Phone: Yeast, UA NOT REPORTED None [employer] Phone: [employer] Phone: AlbuminOrdered By: Gregory stevens on 05-20-2021 Albumin [Mass/Vol] 4.2 g/dL 3.5 - 5.2 g/dL [employer] Phone: BUN & CreatinineOrdered By: Gregory Forbes on 05-20-2021 Creatinine [Mass/Vol] 1.18 mg/dL High 0.50 - 0.90 mg/dL [employer] Phone: GFR >60 >60 mL/min [employer] Phone: GFR Non- 50 mL/min Low >60 [employer] Phone: GFR/1.73 sq M.predicted MDRD (S/P/Bld) [Vol rate/Area] [employer] Phone: Comment on above: Average GFR for 40-4 9 years old: 99 mL/min/1.73sq m Chronic Kidney Disease: <60 mL/min/1.73sq m Kidney failure: <15 mL/min/1.73sq m eGFR calculated using average adult body mass. Additional eGFR calculator available at: http://www.[employer].com/multiple_crcl_2012.htm GFR/1.73 sq M.predicted MDRD (S/P/Bld) [Vol rate/Area] NOT REPORTED [employer] Phone: Interpretation and review of laboratory results Abnormal [employer] Phone: Urea nitrogen (BldV) [Mass/Vol] 19 mg/dL 6 - 20 mg/dL [employer] Phone: CalciumOrdered By: Gregory stevens on 05-20-2021 Calcium [Mass/Vol] 9.2 mg/dL 8.6 - 10. 4 mg/dL [employer] Phone: Electrolyte PanelOrdered By: Gregory Forbes on 05-20-2021 Anion gap [Moles/Vol] 10 mmol/L 9 - 17 mmol/L [facility] Work Phone: Chloride [Moles/Vol] 103 mmol/L 98 - 10 7 mmol/L [employer] Work Phone: CO2 [Moles/Vol] 25 mmol/L 20 - 31 mmol/L [facility] Phone: Potassium [Moles/Vol] 4.2 mmol/L 3.7 - 5.3 mmol/L [facility] Phone: Sodium [Moles/Vol] 138 mmol/L 135 - 144 mmol/L [facility] Phone: MagnesiumOrdered By: Gregory high on 05-20-2021 Magnesium [Mass/Vol] 2.2 mg/dL 1.6 - 2 .6 mg/dL [facility] Phone: No Panel InformationOrdered By: Gregory Forbes on 05-20-2021 [employer] Work Phone: PhosphorusOrdered By: Gregory Forbes on 05-20-2021 Phosphate [Mass/Vol] 3.7 mg/dL 2.6 - 4 .5 mg/dL [employer] Phone: UrinalysisOrdered By: Gregory Forbes on 05-20-2021 Bilirubin Urine Negative NEGATIVE [facility] Work Phone: Color, UA YELLOW YELLOW [facility] Work Phone: Glucose, Ur Negative NEGATIVE [facility] Work Phone: Interpretation and review of laboratory results Abnormal [employer] Phone: Ketones Ql (U) Negative NEGATIVE [employer] Work Phone: Leukocyte esterase Test strip Ql (U) Negative NEGATIVE [employer] Phone: Nitrite, Urine Negative NEGATIVE [employer] Work Phone: pH, UA 5.0 [employer] Phone: Protein, UA TRACE Abnormal NEGATIVE [employer] Phone: Specific Bonnie, UA 1.020 [employer] Phone: Turbidity UA CLEAR CLEAR [employer] Phone: Urinalysis Comments [employer] Phone: Urine Hgb Negative NEGATIVE [employer] Phone: Urobilinogen, Urine Normal Normal [employer] Phone: [employer] Phone: COVID-19Ordered By: Pattie smith on 01-22-2021 SARS-CoV-2 (COVID-19) RNA SHARMIN+probe Ql (Unsp spec) [employer] Phone: SARS-CoV-2 (COVID-19) RNA SHARMIN+probe Ql (Unsp spec) Not detected Not Detected [employer] Phone: Comment on above: The specimen is NEGATIVE for SARS-CoV-2, the novel coronavirus associated with COVID-19. A negative result does not rule out COVID-19. Twin SARS-CoV-2 for use on the [employer] [facility] [employer] is a real-time RT-PCR test intended [...] this assay. Fact sheet for Healthcare Providers: https://www.fda.gov/media/650329/download Fact sheet for Patients: https://www.fda.gov/media/874324/download METHODOLOGY: RT-PCR Source .THROAT [facility] Phone: COVID-19, PCRon 11-15-2020 SARS-CoV-2, Rapid Not Detected Not Detected [facility] [employer] Phone: Comment on above: Rapid NAAT: The [...] management decisions. Fact sheet for Healthcare Providers: https://www.fda.gov/media/662207/download Fact sheet for Patients: https://www.fda.gov/media/531013/download Methodology: Isothermal Nucleic Acid Amplification Source .THROAT [facility] Phone: Otheron 11-15-2020 SARS-CoV-2 [facility] Phone: CBC Auto Differentialon 12-10 07-2019 Basophils (Bld) [#/Vol] 0.10 10*3/uL [facility], [place] Basophils/100 WBC (Bld) 1 % 0 - 2 % [facility], [place] Differential Type YES [facility] [place] Eosinophils (Bld) [#/Vol] 0.10 10*3/uL [place] Eosinophils/100 WBC (Bld) 1 % 0 - 5 % [place] Erythrocyte distribution width (RBC) [Ratio] 16.3 % High 12.1 - 15.2 % [place] Hematocrit (Bld) [Volume fraction] 36.5 % 36 - 46 % [place] Hemoglobin (Bld) [Mass/Vol] 12.5 g/dL 12 - 16 g/dL [place] Interpretation and review of laboratory results Abnormal [place] Lymphocytes (Bld) [#/Vol] 1.90 10*3/uL [place] Lymphocytes/100 WBC (Bld) 25 % 15 - 40 % [place] MCH (RBC) [Entitic mass] 28.8 pg 26 - 34 pg [place] MCHC (RBC) [Mass/Vol] 34.3 g/dL 31 - 37 g/dL [place] MCV (RBC) [Entitic vol] 84.0 fL 80 - 100 fL [place] Monocytes (Bld) [#/Vol] 0.40 10*3/uL [place] Monocytes/100 WBC (Bld) 5 % 4 - 8 % [place] Platelet mean volume (Bld) [Entitic vol] NOT REPORTED 6 - 12 fL [place] Platelets (Bld) [#/Vol] 167 10*3/uL [place] Platelets (Bld) [#/Vol] NOT REPORTED [place] RBC (Bld) [#/Vol] 4.35 10*6/uL 4 - 5.2 m/uL [place] RBC morphology finding Nom (Bld) NOT REPORTED [place] Segmented neutrophils/100 WBC (Bld) 68 % 47 - 75 % [place] Segs Absolute 5.40 [place] WBC (Bld) [#/Vol] 7.8 10*3/uL [place] WBC (Bld) [#/Vol] NOT REPORTED per 100 WBC [place] WBC Morphology NOT REPORTED [place] Comprehensive Metabolic Pane l w/ Reflex to MGon 09-16-2020 Albumin [Mass/Vol] 4.4 g/dL 3.5 - 5.2 g/dL [place] Albumin/Globulin [Mass ratio] NOT REPORTED [place] ALP [Catalytic activity/Vol] 117 U/L High 35 - 104 U/L [place] ALT [Catalytic activity/Vol] 41 U/L High 5 - 33 U/L [place] Anion gap [Moles/Vol] 10 mmol/L 9 - 17 mmol/L [place] AST [Catalytic activity/Vol] 39 U/L High <32 [place] Bilirubin Ql (U) 0.52 mg/dL 0.3 - 1.2 mg/dL [place] Bun/Cre Ratio 11 [place] Calcium [Mass/Vol] 9.0 mg/dL 8.6 - 10. 4 mg/dL [place] Chloride [Moles/Vol] 101 mmol/L 98 - 10 7 mmol/L [place] CO2 [Moles/Vol] 26 mmol/L 20 - 31 mmol/L [place] Creatinine [Mass/Vol] 1.32 mg/dL High 0.5 - 0.9 mg/dL [place] GFR 54 mL/min Low >60 [place] GFR Non- 44 mL/min Low >60 [place] GFR/1.73 sq M predicted among non-blacks MDRD (S/P/Bld) [Vol rate/Area] [place] Comment on above: Average GFR for 40-4 9 years old: 99 mL/min/1.73sq m Chronic Kidney Disease: <60 mL/min/1.73sq m Kidney failure: <15 mL/min/1.73sq m eGFR calculated using average adult body mass. Additional eGFR calculator available at: http://www.[employer]/multiple_crcl_2011.htm GFR/1.73 sq M predicted among non-blacks MDRD (S/P/Bld) [Vol rate/Area] NOT REPORTED [place] Glucose [Mass/Vol] 173 mg/dL High 70 - 99 mg/dL [place] Interpretation and review of laboratory results Abnormal [place] Potassium [Moles/Vol] 3.9 mmol/L 3.7 - 5.3 mmol/L [place] Protein [Mass/Vol] 7.3 g/dL 6.4 - 8.3 g/dL [place] Sodium [Moles/Vol] 137 mmol/L 135 - 144 mmol/L [place] Urea nitrogen [Mass/Vol] 15 mg/dL 6 - 20 mg/dL [place] Otheron 09-16-2020 Immature granulocytes (Bld) [#/Vol] NOT REPORTED [place] Sedimentation Rateon 020 Sed Rate 15 mm 0 - 20 mm [place] Urinalysis, reflex to micros copicon 09-16-2020 Bilirubin Urine Negative NEGATIVE [place] Color, UA YELLOW YELLOW [place] Glucose, Ur Negative NEGATIVE [place] Interpretation and review of laboratory results Abnormal [place] Ketones Ql (U) Negative NEGATIVE [place] Leukocyte esterase Test strip Ql (U) Negative NEGATIVE [place] Nitrite, Urine Negative NEGATIVE [place] pH, UA 5.0 [place] Protein (U) [Mass/Vol] TRACE Abnormal NEGATIVE [place] Specific Bonnie, UA 1.025 [place], [place] Turbidity UA CLEAR CLEAR [place] Urinalysis Comments [place] Urine Hgb Negative NEGATIVE [place] Urobilinogen, Urine Normal Normal [place] C-Reactive Proteinon 020 CRP [Mass/Vol] 6 mg/L High 0 - 5 mg/L [place] Interpretation and review of laboratory results Abnormal [place] CBC With Auto Differentialon 08-24-2020 Basophils (Bld) [#/Vol] 0.00 10*3/uL [place] Basophils/100 WBC (Bld) 1 % 0 - 2 % [place] Differential Type YES [facility] [place] Eosinophils (Bld) [#/Vol] 0.10 10*3/uL [place] Eosinophils/100 WBC (Bld) 1 % 0 - 5 % [place] Erythrocyte distribution width (RBC) [Ratio] 16.2 % High 12.1 - 15.2 % [place] Hematocrit (Bld) [Volume fraction] 35.4 % Low 36 - 46 % [place] Hemoglobin (Bld) [Mass/Vol] 12.2 g/dL 12 - 16 g/dL [place] Interpretation and review of laboratory results Abnormal [place] Lymphocytes (Bld) [#/Vol] 1.60 10*3/uL [place] Lymphocytes/100 WBC (Bld) 28 % 15 - 40 % [place] MCH (RBC) [Entitic mass] 29.1 pg 26 - 34 pg [place] MCHC (RBC) [Mass/Vol] 34.5 g/dL 31 - 37 g/dL [place] MCV (RBC) [Entitic vol] 84.2 fL 80 - 100 fL [place] Monocytes (Bld) [#/Vol] 0.40 10*3/uL [place] Monocytes/100 WBC (Bld) 6 % 4 - 8 % [place] Platelet mean volume (Bld) [Entitic vol] NOT REPORTED 6 - 12 fL [place] Platelets (Bld) [#/Vol] 160 10*3/uL [place] Platelets (Bld) [#/Vol] NOT REPORTED [place] RBC (Bld) [#/Vol] 4.20 10*6/uL 4 - 5.2 m/uL [place] RBC morphology finding Nom (Bld) NOT REPORTED [place] Segmented neutrophils/100 WBC (Bld) 64 % 47 - 75 % [place] Segs Absolute 3.80 [place] WBC (Bld) [#/Vol] 5.8 10*3/uL [place] WBC (Bld) [#/Vol] NOT REPORTED per 100 WBC [place] WBC Morphology NOT REPORTED [place] Otheron 08-24-2020 Immature granulocytes (Bld) [#/Vol] NOT REPORTED 0 % [place] Sedimentation Rateon 020 Sed Rate 10 mm 0 - 20 mm [place] C-Reactive Proteinon 020 CRP [Mass/Vol] 2 mg/L 0 - 5 mg/L [place] CBC With Auto Differentialon 07-24-2020 Basophils (Bld) [#/Vol] 0.10 10*3/uL [place] Basophils/100 WBC (Bld) 1 % 0 - 2 % [place] Differential Type YES [place] Eosinophils (Bld) [#/Vol] 0.10 10*3/uL [place] Eosinophils/100 WBC (Bld) 1 % 0 - 5 % [place] Erythrocyte distribution width (RBC) [Ratio] 16.8 % High 12.1 - 15.2 % [place] Hematocrit (Bld) [Volume fraction] 40.0 % 36 - 46 % [place] Hemoglobin (Bld) [Mass/Vol] 13.5 g/dL 12 - 16 g/dL [place] Interpretation and review of laboratory results Abnormal [place] Lymphocytes (Bld) [#/Vol] 1.70 10*3/uL [place] Lymphocytes/100 WBC (Bld) 17 % 15 - 40 % [place] MCH (RBC) [Entitic mass] 29.1 pg 26 - 34 pg [place] MCHC (RBC) [Mass/Vol] 33.8 g/dL 31 - 37 g/dL [place] MCV (RBC) [Entitic vol] 86.0 fL 80 - 100 fL [place] Monocytes (Bld) [#/Vol] 0.50 10*3/uL [place] Monocytes/100 WBC (Bld) 5 % 4 - 8 % [place] Platelet mean volume (Bld) [Entitic vol] NOT REPORTED 6 - 12 fL [place] Platelets (Bld) [#/Vol] NOT REPORTED [place] Platelets (Bld) [#/Vol] 208 10*3/uL [place] RBC (Bld) [#/Vol] 4.65 10*6/uL 4 - 5.2 m/uL [place] RBC morphology finding Nom (Bld) NOT REPORTED [place] Segmented neutrophils/100 WBC (Bld) 76 % High 47 - 75 % [place] Segs Absolute 7.70 [place] WBC (Bld) [#/Vol] NOT REPORTED per 100 WBC [place] WBC (Bld) [#/Vol] 10.0 10*3/uL [place] WBC Morphology NOT REPORTED [place] Otheron 07-24-2020 Immature granulocytes (Bld) [#/Vol] NOT REPORTED 0 % [place] Sedimentation Rateon 020 Sed Rate 6 mm 0 - 20 mm [place] Protein / creatinine ratio, urineon 06-07-2020 Creatinine, Ur 101.2 mg/dL 28 - 217 mg/dL [place] Protein (U) [Mass/Vol] 8 mg/dL [place] Comment on above: No normal range esta blished. Urine Total Protein Creatinine Ratio 0.08 [place] Urinalysison 06-07-2020 Bilirubin Urine Negative NEGATIVE [place] Color, UA YELLOW YELLOW [place] Glucose, Ur 100 mg/dL Abnormal NEGATIVE [place] Interpretation and review of laboratory results Abnormal [place] Ketones Ql (U) Negative NEGATIVE [place] Leukocyte esterase Test strip Ql (U) Negative NEGATIVE [place] Nitrite, Urine Negative NEGATIVE [place] pH, UA 6.0 [place] Protein (U) [Mass/Vol] Negative NEGATIVE [place] Specific Bonnie, UA 1.020 [place] Turbidity UA CLEAR CLEAR [place] Urinalysis Comments [place] Urine Hgb Negative NEGATIVE [place] Urobilinogen, Urine Normal Normal [place] Comprehensive Metabolic Pane ananda 05-25-2020 Albumin [Mass/Vol] 4.4 g/dL 3.5 - 5.2 g/dL [place] Albumin/Globulin [Mass ratio] NOT REPORTED [place] ALP [Catalytic activity/Vol] 87 U/L 35 - 104 U/L [place] ALT [Catalytic activity/Vol] 21 U/L 5 - 33 U/L [place] Anion gap [Moles/Vol] 10 mmol/L 9 - 17 mmol/L [place] AST [Catalytic activity/Vol] 22 U/L <32 [place] Bilirubin Ql (U) 0.32 mg/dL 0.3 - 1.2 mg/dL [place] Bun/Cre Ratio 18 [place] Calcium [Mass/Vol] 10.1 mg/dL 8.6 - 10. 4 mg/dL [place] Chloride [Moles/Vol] 104 mmol/L 98 - 10 7 mmol/L [place] CO2 [Moles/Vol] 26 mmol/L 20 - 31 mmol/L [place] Creatinine [Mass/Vol] 1.37 mg/dL High 0.5 - 0.9 mg/dL [place] GFR 52 mL/min Low >60 [place] GFR Non- 43 mL/min Low >60 [place] GFR/1.73 sq M predicted among non-blacks MDRD (S/P/Bld) [Vol rate/Area] NOT REPORTED [place] GFR/1.73 sq M predicted among non-blacks MDRD (S/P/Bld) [Vol rate/Area] [place] Comment on above: Average GFR for 40-4 9 years old: 99 mL/min/1.73sq m Chronic Kidney Disease: <60 mL/min/1.73sq m Kidney failure: <15 mL/min/1.73sq m eGFR calculated using average adult body mass. Additional eGFR calculator available at: http://www.[employer]/multiple_crcl_2012.htm Glucose [Mass/Vol] 160 mg/dL High 70 - 99 mg/dL [place] Interpretation and review of laboratory results Abnormal [place] Potassium [Moles/Vol] 4.6 mmol/L 3.7 - 5.3 mmol/L [place] Protein [Mass/Vol] 7.4 g/dL 6.4 - 8.3 g/dL [place] Sodium [Moles/Vol] 140 mmol/L 135 - 144 mmol/L [place] Urea nitrogen [Mass/Vol] 24 mg/dL High 6 - 20 mg/dL [place] Hemoglobin A1Con 05-25-2020 Glucose [Mass/Vol] 123 mg/dL [place] Comment on above: The ADA and AACC rec ommend providing the estimated average glucose result to permit better patient understanding of their HBA1c result. HbA1c (Bld) [Mass fraction] 5.9 % 4 - 6 % [place] LDL Cholesterol, Directon Cholesterol in LDL [Mass/Vol] 58 mg/dL <100 [place] Lipid Panelon 05-25-2020 Cholesterol [Mass/Vol] 194 mg/dL <200 [place] Comment on above: Cholesterol Guidelines: <200 Desirable 200-240 Borderline >240 Undesirable Cholesterol in HDL [Mass/Vol] 27 mg/dL Low >40 [place] Comment on above: HDL Guidelines: <40 Undesirable 40-59 Borderline >59 Desirable Cholesterol in LDL [Mass/Vol] 0 - 130 mg/dL [place] Comment on above: Calculation not jacqueline d for Triglyceride value greater than 400 mg/dL. Direct LDL reflexed LDL Guidelines: <100 Desirable 100-129 Near to/above Desirable 130-159 Borderline >159 Undesirable Direct (measured) LDL and calculated LDL are not interchangeable tests. Cholesterol in VLDL [Mass/Vol] NOT REPORTED 1 - 30 mg/dL [place] Cholesterol.total/Chol esterol in HDL [Mass ratio] 7.2 {ratio} High <5 [place] Interpretation and review of laboratory results Abnormal [place] Triglyceride [Mass/Vol] 1112 mg/dL High <150 [place] Comment on above: Triglyceride Guidelines: <150 Desirable 150-199 Borderline 200-499 High >499 Very high Based on AHA Guidelines for fasting triglyceride, July 2012. Patient Fasting?on 0 Patient Fasting? YES [place] Vitamin D 25 Hydroxyon 05-25 Vit D, 25-Hydroxy 30.2 ng/mL 30 - 100 ng/mL [place] Comment on above: Reference Range: Vitamin D status Range Deficiency <20 ng/mL Mild Deficiency 20-30 ng/mL Sufficiency 30-100 ng/mL Toxicity >100 ng/mL C-Reactive Proteinon 020 CRP [Mass/Vol] 6.2 mg/L High 0 - 5 mg/L [place] Interpretation and review of laboratory results Abnormal [place] Hemoglobin [id number] By: Kevin Allen on 09-24-2019 Glucose [Mass/Vol] 108 mg/dL [facility] [employer] Phone: Comment on above: The ADA and AACC rec ommend providing the estimated average glucose result to permit better patient understanding of their HBA1c result. HbA1c (Bld) [Mass fraction] 5.4 % 4.8 - 5.9 % [facility] Phone: Homocysteine, SerumOrdered B y: Janel Allen on 09-24-2019 Homocysteine 9 umol/L <15.0 [employer] Phone: TSH without ReflexOrdered By : Janel Allen on 09-24-2019 TSH Qn 1.03 m[IU]/L [facility] Phone: Vitamin B12 & FolateOrdered By: Janel Allen on 09-24-2019 Cobalamin (Vitamin B12) [Mass/Vol] 292 pg/mL 232 - 1245 pg/mL [employer] Work Phone: Folate 13.8 ng/mL >4.8 [employer] Phone: XR CERVICAL SPINE (4-5 VIEWS )on 07-29-2019 Mild degenerative changes cervical spine not unusual for age. Refer to the [facility] services 02/03/2019 with some of the findings discussed above. [employer] EXAM: XR CERVICAL SPINE (4-5 VIEWS) HISTORY: Reason for exam:->history MRSA discitis of thoracic region. New tingling and numbness of fingers COMPARISON: MRI cervical spine [facility] 02/03/2019, cervical spine series 04/03/2010. The [...] Swimmer's lateral view shows no additional abnormality. [place] Lior, Rust Incoming Radiant Results From [facility] - 07/29/2019 10:05 AM EDT EXAM: XR CERVICAL SPINE (4-5 VIEWS) HISTORY: Reason for exam:->history MRSA discitis of thoracic region. New tingling and numbness of fingers COMPARISON: MRI cervical spine [facility] 02/03/2019, cervical spine series 04/03/2010. The [...] unusual for age. Refer to the [facility] services 02/03/2019 with some of the findings discussed above. [place] C-Reactive ProteinOrdered By : Azaleabrock Knight on 07-28-2019 CRP [Mass/Vol] 6.4 mg/L High 0 - 5 mg/L [place] Interpretation and review of laboratory results Abnormal [place] CBC With Auto DifferentialOr dered By: Azalea Knight on 07-28-2019 Absolute Eos # 0.10 [place] Absolute Immature Granulocyte NOT REPORTED [place] Absolute Lymph # 2.10 [place] Absolute [place] # 0.50 [place] Basophils (Bld) [#/Vol] 0.00 10*3/uL [place] Basophils/100 WBC (Bld) 1 % 0 - 2 % [place] Differential Type YES [place] Eosinophils/100 WBC (Bld) 1 % 0 - 5 % [place] Erythrocyte distribution width (RBC) [Ratio] 14.5 % 12.1 - 15.2 % [place] Hematocrit (Bld) [Volume fraction] 38.1 % 36 - 46 % [place] Hemoglobin (Bld) [Mass/Vol] 12.9 g/dL 12 - 16 g/dL [place] Immature Granulocytes NOT REPORTED 0 % [place] Lymphocytes/100 WBC (Bld) 34 % 15 - 40 % [place] MCH (RBC) [Entitic mass] 29.5 pg 26 - 34 pg [place] MCHC (RBC) [Mass/Vol] 33.9 g/dL 31 - 37 g/dL [place] MCV (RBC) [Entitic vol] 87.1 fL 80 - 100 fL [place] Monocytes/100 WBC (Bld) 8 % 4 - 8 % [place] MPV NOT REPORTED 6 - 12 fL [place] NRBC Automated NOT REPORTED per 100 WBC [place] Platelet Estimate NOT REPORTED [place] Platelets (Bld) [#/Vol] 222 10*3/uL [place] RBC (Bld) [#/Vol] 4.38 10*6/uL 4 - 5.2 m/uL [place] RBC morphology finding Nom (Bld) NOT REPORTED [place] Segmented neutrophils/100 WBC (Bld) 56 % 47 - 75 % [place] Segs Absolute 3.50 [place] WBC (Bld) [#/Vol] 6.2 10*3/uL [place] WBC Morphology NOT REPORTED [place] Sedimentation RateOrdered By : Azalea Knight on 07-28-2019 Sed Rate 19 mm 0 - 30 mm [place] C-Reactive Proteinon 019 CRP [Mass/Vol] 7.3 mg/L High 0 - 5 mg/L [place] Interpretation and review of laboratory results Abnormal [place] Albuminon 06-17-2019 Albumin [Mass/Vol] 4.3 g/dL 3.5 - 5.2 g/dL [place] BUN & Creatinineon 9 Creatinine [Mass/Vol] 1.27 mg/dL High 0.5 - 0.9 mg/dL [place] GFR 56 mL/min Low >60 [place] GFR Non- 47 mL/min Low >60 [place] GFR/1.73 sq M predicted among non-blacks MDRD (S/P/Bld) [Vol rate/Area] NOT REPORTED [place] GFR/1.73 sq M predicted among non-blacks MDRD (S/P/Bld) [Vol rate/Area] [place] Comment on above: Average GFR for 40-4 9 years old: 99 mL/min/1.73sq m Chronic Kidney Disease: <60 mL/min/1.73sq m Kidney failure: <15 mL/min/1.73sq m eGFR calculated using average adult body mass. Additional eGFR calculator available at: http://www.Jumo/multiple_crcl_2012.htm Interpretation and review of laboratory results Abnormal [place] Urea nitrogen [Mass/Vol] 18 mg/dL 6 - 20 mg/dL [place] Calciumon 06-17-2019 Calcium [Mass/Vol] 10.4 mg/dL 8.6 - 10. 4 mg/dL [place] Electrolyte Panelon 06-17-20 19 Anion gap [Moles/Vol] 13 mmol/L 9 - 17 mmol/L [place] Chloride [Moles/Vol] 103 mmol/L 98 - 10 7 mmol/L [place] CO2 [Moles/Vol] 24 mmol/L 20 - 31 mmol/L [place] Potassium [Moles/Vol] 3.8 mmol/L 3.7 - 5.3 mmol/L [place] Sodium [Moles/Vol] 140 mmol/L 135 - 144 mmol/L [place] Hemoglobin and Hematocrit, B loodon 06-17-2019 Hematocrit (Bld) [Volume fraction] 35.4 % Low 36 - 46 % [place] Hemoglobin (Bld) [Mass/Vol] 12.1 g/dL 12 - 16 g/dL [place] Interpretation and review of laboratory results Abnormal [place] Magnesiumon 06-17-2019 Magnesium [Mass/Vol] 2.3 mg/dL 1.6 - 2 .6 mg/dL [place] Microscopic Urinalysison Amorphous, UA NOT REPORTED None [place] Bacteria, UA 1+ Abnormal None [place] Casts UA NOT REPORTED /LPF [place] Crystals UA NOT REPORTED None /HPF [place] Epithelial Cells UA 2 TO 5 /HPF [place] Interpretation and review of laboratory results Abnormal [place] Mucus, UA NOT REPORTED None [place] Other Observations UA NOT REPORTED NOT REQ. [place] RBC (U) [#/Vol] NOT REPORTED [place] Renal Epithelial, Urine NOT REPORTED 0 /HPF [place] Trichomonas, UA NOT REPORTED None [place] WBC, UA 0 TO 2 0 /HPF [place] Yeast, UA NOT REPORTED None [place] Phosphoruson 06-17-2019 Phosphate [Mass/Vol] 3.0 mg/dL 2.6 - 4 .5 mg/dL [place] Protein / creatinine ratio, urineon 06-17-2019 Creatinine, Ur 228.2 mg/dL High 28 - 217 mg/dL [place] Interpretation and review of laboratory results Abnormal [place] Protein (U) [Mass/Vol] 18 mg/dL [place] Comment on above: No normal range esta blished. Urine Total Protein Creatinine Ratio 0.08 [place] Sedimentation Rateon 019 Sed Rate 24 mm 0 - 30 mm [place] Urinalysison 06-17-2019 Bilirubin Urine Negative NEGATIVE [place] Color, UA YELLOW YELLOW [place] Glucose, Ur Negative NEGATIVE [place] Interpretation and review of laboratory results Abnormal [place] Ketones Ql (U) Negative NEGATIVE [place] Leukocyte esterase Test strip Ql (U) Negative NEGATIVE [place] Nitrite, Urine Negative NEGATIVE [place] pH, UA 6.0 [place] Protein (U) [Mass/Vol] TRACE Abnormal NEGATIVE [place] Specific Bonnie, UA 1.025 [place] Turbidity UA HAZY Abnormal CLEAR [place] Urinalysis Comments [place] Urine Hgb Negative NEGATIVE [place] Urobilinogen, Urine Normal Normal [place] MR CERVICAL SPINE WITHOUT CO NTRASTon [...] or cord edema. /cdr Workstation ID: [id number] [facility] EXAMINATION: MR CERVICAL SPINE WITHOUT CONTRAST [...] creating probable mild left-sided neural foraminal stenosis. [facility], Rad In Aric Mohanq - 02/03/2019 [...] be due to myelomalacia or cord edema. /Evo[employer] Workstation ID: [id number] [facility] MR CERVICAL SPINE WITHOUT CONTRAST EXAMINATION: [...] or cord edema. /[facility] Workstation ID: [id number] Dictated by: RONALD MCCRAY on ThuFebruary 03, 2019 10:34:16 AM EDT Transcribed by: FELICITY DE JESUS on ThuFebruary 03, 2019 10:58:51 AM EDT Finalized by: RONALD MCCRAY on ThuFebruary 03, 2019 10:59:35 AM EDT [facility] Comment on above: Order Comment: Reaso [...] DAYS Report Status FINAL 10/11/2018 [facility] Comment on above: Performed By: #### T ROPI #### [address] [address] Cult,Mycobacteria Specimen Description .SPINE .TISSUE T4 LAMINA Special Requests NOT REPORTED Direct Exam NO ACID FAST BACILLI SEEN (DIRECT SMEAR) Culture NO GROWTH 48 DAYS Report Status FINAL 10/11/2018 [facility] Comment on above: Performed By: #### L ACWB #### [address] [address] Cult,Funguson 09-27-2018 Cult,Fungus Specimen Description .TISSUE EPIDURAL TISSUE Special Requests NOT REPORTED Culture NO GROWTH 34 DAYS Report Status FINAL 09/27/2018 [facility] Comment on above: Performed By: #### L ACWB #### [address] [address] Cult,Fungus Specimen Description .SPINE .TISSUE T4 LAMINA Special Requests NOT REPORTED Culture NO GROWTH 34 DAYS Report Status FINAL 09/27/2018 [facility] Comment on above: Performed By: #### L ACWB #### [address] [address] BUNon 09-23-2018 Urea nitrogen mass conc 20 mg/dL Normal 6-23 [facility] Comment on above: Performed By: #### 2 [id number] ####OVIDIO AkuTwui7385 [place] [address] Creatinineon 09-23-2018 Creatinine mass conc 1.3 mg/dL High 0.5-1.1 [facility] Comment on above: Performed By: #### 2 [id number] ####OVIDIO Wsqpycjd0281 [place] [address] eGFRon 09-23-2018 eGFR AA 54 mL/min/1.73 m2 Normal [facility] Comment on above: Order Comment: Order added by Discern Expert. Performed By: #### 2 [id number] ####OVIDIO Kotanjjl0211 [place] [address] GFR/1.73 sq M predicted among non-blacks MDRD vol rate/area (S/P/Bld) 45 mL/min/1.73 m2 Normal [facility] Comment on above: Order Comment: Order added by Discern Expert. Performed By: #### 2 [id number] ####OVIDIO Tdyfcupn7289 [place] [address] Auto Diffon 09-20-2018 Basophils Auto #/vol (Bld) 0.0 E3/mcL Normal 0.0-0.2 [facility] Comment on above: Order Comment: Order Added by Discern Expert. Performed By: #### 2 [id number] ####OVIDIO HcjCpnj8480 [place] [address] Basophils/100 WBC Auto (Bld) 1.1 % Normal 0.0-2.0 [facility] Comment on above: Order Comment: Order Added by Discern Expert. Performed By: #### 2 [id number] ####OVIDIOBrock AvalosSatQacw3158 [place] [address] Eos Absolute 0.0 E3/mcL Normal 0.0-0.7 [facility] Comment on above: Order Comment: Order Added by Discern Expert. Performed By: #### 2 [id number] ####OVIDIOBrock AvalosSnmWjdc4692 [place] [address] Eosinophils/100 WBC Auto (Bld) 0.3 % Normal 0.0-11.0 [facility] Comment on above: Order Comment: Order Added by Discern Expert. Performed By: #### 2 [id number] ####OVIDIO TfyUwfh1471 [place] [address] Lymphocytes Auto #/vol (Bld) 1.2 E3/mcL Normal 1.2-3.4 [facility] Comment on above: Order Comment: Order Added by Discern Expert. Performed By: #### 2 [id number] ####OVIDIOBrock AvalosOouQtfy7567 [place] [address] Lymphocytes/100 WBC Auto (Bld) 30.6 % Normal 20.0-55.0 [facility] Comment on above: Order Comment: Order Added by Discern Expert. Performed By: #### 2 [id number] ####OVIDIO Valleo1025 [place] [address] Laporte Absolute 0.4 E3/mcL Normal 0.0-0.7 [facility] Comment on above: Order Comment: Order Added by Discern Expert. Performed By: #### 2 [id number] ####OVIDIO [address] [place] [address] Monocytes/100 WBC Auto (Bld) 10.2 % High 0.0-10.0 [facility] Comment on above: Order Comment: Order Added by Discern Expert. Performed By: #### 2 [id number] ####OVIDIO [address] [place] [address] Neutro Absolute 2.3 E3/mcL Normal 1.4-6.5 [facility] Comment on above: Order Comment: Order Added by Discern Expert. Performed By: #### 2 [id number] ####OVIDIO [address] [place] [address] Neutro Auto 57.8 % Normal 37.0-75.0 [facility] Comment on above: Order Comment: Order Added by Discern Expert. Performed By: #### 2 [id number] ####OVIDIO [address] [place] [address] CBC w/ Auto Diffon 8 Erythrocyte distribution width Auto Ratio (RBC) 19.9 % High 11.5-14.5 [facility] Comment on above: Performed By: #### 2 [id number] ####OVIDIO [address] [place] [address] Hematocrit Auto Volume Fraction (Bld) 26.5 % Low 36.0-48.0 [facility] Comment on above: Performed By: #### 2 [id number] ####OVIDIO [address] [place] [address] Hemoglobin mass conc (Bld) 8.7 g/dL Low 12.0-16.0 [facility] Comment on above: Performed By: #### 2 [id number] ####OVIDIO AvalosMkpSzdc0431 [place] [address] MCH Auto Entitic mass (RBC) 29.6 pg Normal 27.0-31.0 [facility] Comment on above: Performed By: #### 2 [id number] ####OVIDIO IfoNyxz9622 [place] [address] MCHC Auto mass conc (RBC) 32.9 g/dL Low 33.0-37.0 [facility] Comment on above: Performed By: #### 2 950386 ####OVIDIO A[address]osZioOnry7229 [place] [address] MCV Auto Entitic volume (RBC) 89.8 fL Normal 78.0-100.0 [facility] Comment on above: Performed By: #### 2 [id number] ####OVIDIO A[address]osTrnNcgf4277 [place] [address] Platelet mean volume Auto Entitic volume (Bld) 10.5 fL Normal 7.4-11.0 [facility] Comment on above: Performed By: #### 2 [id number] ####OVIDIO AvalosFoiMrym9842 [place] [address] Platelets Auto #/vol (Bld) 117 E3/mcL Low 130-400 [facility] Comment on above: Performed By: #### 2 [id number] ####OVIDIO XjsEbma0560 [place] [address] RBC Auto #/vol (Bld) 2.95 E6/mcL Low 3.90-5.40 [facility] Comment on above: Performed By: #### 2 [id number] ####OVIDIO AvalosTphZosm3377 [place] [address] WBC Auto #/vol (Bld) 4.0 E3/mcL Normal 3.6-11.0 [facility] Comment on above: Performed By: #### 2 [id number] ####OVIDIO A[address]osMteZnvz2469 [place] [address] CRPon 09-20-2018 CRP mass conc 0.83 mg/dL Normal 0.00-1.00 [facility] Comment on above: Performed By: #### 2 957383 ####OVIDIO A[address]osYjbDpln2695 [place] [address] Morphon 09-20-2018 Anisocytosis Auto Ql (Bld) 1+ Normal [facility] Comment on above: Order Comment: Order Added by Discern Expert. Performed By: #### 1 [id number] ####OVIDIO MpcIczk0981 [place] [address] Hypochromasia 1+ Normal [facility] Comment on above: Order Comment: Order Added by Discern Expert. Performed By: #### 1 [id number] ####OVIDIO HlhTjou3146 [place] [address] RBC morphology finding Nom (Bld) SEE MORPHOLOGY Normal [facility] Comment on above: Order Comment: Order Added by Discern Expert. Performed By: #### 1 [id number] ####OVIDIO VzmGraw9696 [place] [address] Sed Rate Automatedon 018 Sed Rate Automated 15 mm/hr Normal [facility] Comment on above: Result Comment: AGE- SPECIFIC REFERENCE RANGES FOR SEDIMENTATION RATE AUTOMATED REFERENCE RANGE - MM/HR AGE MEN WOMEN 0-2 0-2 - PUBERTY 3-13 3-13 PUBERTY - 50 YRS 0-15 0-20 > 50 YRS 0-20 0-30 Performed By: #### 1 [id number] ####OVIDIO Hematology Manual Eepvmnqsda1340 [place] [address] zzplt morphon 09-20-2018 Platelet morphology finding Nom (Bld) NORMAL Normal [facility] Comment on above: Performed By: #### 9 [id number] ####OVIDIO RfvZnsl8907 [place] [address] Platelets Auto #/vol (Bld) NORMAL Normal [facility] Comment on above: Performed By: #### 9 [id number] ####OVIDIO SoiYxmc4709 [place] [address] BLOOD UREA NITROGENon 2017 Urea nitrogen mass conc (Bld) 19 mg/dL Normal 7-20 [facility] Comment on above: Performed By: #### A CBC, ESR, BUN, CREAT, CREACT, FX ####Testing performed at [facility] [place] [address] C REACTIVE PROTEINon 018 CRP mass conc 18.5 mg/L High 0-10.0 [facility] Comment on above: Performed By: #### A CBC, ESR, BUN, CREAT, CREACT, FX ####Testing performed at [address] [address] CBCon 09-13-2018 ABSOLUTE BAS 0.1 X10 Normal [facility]3] Comment on above: Performed By: #### A CBC, ESR, BUN, CREAT, CREACT, FX ####Testing performed at [address] [address] ABSOLUTE EOS 0.20 X10 Normal [facility]3] Comment on above: Performed By: #### A CBC, ESR, BUN, CREAT, CREACT, FX ####Testing performed at [address] [address] ABSOLUTE NEUTROPHIL COUNT 2.5 x10 Normal 1.0-7.0 [facility] Comment on above: Performed By: #### A CBC, ESR, BUN, CREAT, CREACT, FX ####Testing performed at [address] [address] Basophils/100 WBC Auto (Bld) 1.4 % Normal 0.0-2.0 [facility] Comment on above: Performed By: #### A CBC, ESR, BUN, CREAT, CREACT, FX ####Testing performed at [address] [address] DTYPE AUTO DIFF Normal [facility] Comment on above: Performed By: #### A CBC, ESR, BUN, CREAT, CREACT, FX ####Testing performed at [address] [address] Eosinophils/100 WBC Auto (Bld) 3.5 % Normal 0.0-11.0 [facility] Comment on above: Performed By: #### A CBC, ESR, BUN, CREAT, CREACT, FX ####Testing performed at [address] [address] Lymphocytes Auto #/vol (Bld) 1.10 X10 Normal [facility] Comment on above: Performed By: #### A CBC, ESR, BUN, CREAT, CREACT, FX ####Testing performed at [address] [address] Lymphocytes/100 WBC Auto (Bld) 27.0 % Normal 20.0-55.0 [facility] Comment on above: Performed By: #### A CBC, ESR, BUN, CREAT, CREACT, FX ####Testing performed at [place] [id number] Monocytes Auto #/vol (Bld) 0.4 X10 Normal [facility] Comment on above: Performed By: #### A CBC, ESR, BUN, CREAT, CREACT, FX ####Testing performed at [address] [address] Monocytes/100 WBC Auto (Bld) 9.4 % Normal 0.0-10.0 [facility] Comment on above: Performed By: #### A CBC, ESR, BUN, CREAT, CREACT, FX ####Testing performed at [place] [id number] Neutrophils/100 WBC Auto (Bld) 58.7 % Normal 37.0-75.0 [facility] Comment on above: Performed By: #### A CBC, ESR, BUN, CREAT, CREACT, FX ####[place] [address] Erythrocyte distribution width Auto Ratio (RBC) 17.6 % High 11.5-14.5 [facility] Comment on above: Performed By: #### A CBC, ESR, BUN, CREAT, CREACT, FX ####[place] [address] Hematocrit Auto Volume Fraction (Bld) 26.2 % Low 36.0-48.0 [facility] Comment on above: Performed By: #### A CBC, ESR, BUN, CREAT, CREACT, FX ####[place] [address] Hemoglobin mass conc (Bld) 8.8 g/dL Low 12.0-16.0 [facility] Comment on above: Performed By: #### A CBC, ESR, BUN, CREAT, CREACT, FX ####[place] [address] MCH Auto Entitic mass (RBC) 29.3 pg Normal 26.0-35.0 [facility] Comment on above: Performed By: #### A CBC, ESR, BUN, CREAT, CREACT, FX ####[place] [address] MCHC Auto mass conc (RBC) 33.7 g/dL Normal 27.0-37.0 [facility] Comment on above: Performed By: #### A CBC, ESR, BUN, CREAT, CREACT, FX ####[place] [address] MCV Auto Entitic volume (RBC) 86.9 fL Normal 80.0-100.0 [facility] Comment on above: Performed By: #### A CBC, ESR, BUN, CREAT, CREACT, FX ####[place] [address] Platelet mean volume Auto Entitic volume (Bld) 10.1 fL Normal 7.4-11.0 [facility] Comment on above: Performed By: #### A CBC, ESR, BUN, CREAT, CREACT, FX ####[place] [address] Platelets Auto #/vol (Bld) 130 /cmm Normal 130.0-400.0 [facility] Comment on above: Performed By: #### A CBC, ESR, BUN, CREAT, CREACT, FX ####[place] [address] RBC Auto #/vol (Bld) 3.01 /cmm Low 4.0-5.4 [facility] Comment on above: Performed By: #### A CBC, ESR, BUN, CREAT, CREACT, FX ####[place] [address] WBC Auto #/vol (Bld) 4.2 /cmm Normal 3.6-11.0 [facility] Comment on above: Performed By: #### A CBC, ESR, BUN, CREAT, CREACT, FX ####[place] [address] CREATININE,SERUMon 8 Creatinine mass conc 1.5 mg/dL High 0.52-1.04 [facility] Comment on above: Performed By: #### A CBC, ESR, BUN, CREAT, CREACT, FX ####Testing performed at [place] [id number] EST. GFR, 50 ml/min/1.73sq.m [facility] Comment on above: Performed By: #### A CBC, ESR, BUN, CREAT, CREACT, FX ####Testing performed at [place] [id number] EST. GFR,Non 41 ml/min/1.73sq.m [facility] Comment on above: Performed By: #### A CBC, ESR, BUN, CREAT, CREACT, FX ####[place] [address] GFR/1.73 sq M predicted among non-blacks MDRD vol rate/area (S/P/Bld) Average GFR for 30-39 years old = 109. [facility] Comment on above: Result Comment: Marker Machine vasu Kidney disease, GFR = <60.Kidney failure, GFR = <15.The GFR estimate is not adjusted for extreme body surface area or acute process, nor has it been validated for women or ethnic groups other than and . Performed By: #### A CBC, ESR, BUN, CREAT, CREACT, FX ####[place] [address] ESRon 09-13-2018 ESR Velocity (Bld) 49 mm/h High 0-15 [facility] Comment on above: Performed By: #### A CBC, ESR, BUN, CREAT, CREACT, FX ####Testing performed at [place] [id number] FAX REQUESTon 09-13-2018 FAX TO FAX TO DR HARTMAN AT [phone] AND TO [facility] AT [phone] [facility] Comment on above: Performed By: #### P HY, BUN, CREAT, FX ####Testing performed at [address] [address] FAX REQUESTon 09-06-2018 FAX TO [phone] [facility] Comment on above: Performed By: #### F X ####Testing performed at [address] [address] BLOOD UREA NITROGENon 2017 Urea nitrogen mass conc (Bld) 21 mg/dL High 7-20 [facility] Comment on above: Performed By: #### P HY, BUN, CREAT, FX ####Testing performed at [place] [id number] CREATININE,SERUMon 8 Creatinine mass conc 1.4 mg/dL High 0.52-1.04 [facility] Comment on above: Performed By: #### P HY, BUN, CREAT, FX ####[place] [address] EST. GFR, 54 ml/min/1.73sq.m [facility] Comment on above: Performed By: #### P HY, BUN, CREAT, FX ####[place] [address] EST. GFR,Non 44 ml/min/1.73sq.m [facility] Comment on above: Performed By: #### P HY, BUN, CREAT, FX ####[place] [address] GFR/1.73 sq M predicted among non-blacks MDRD vol rate/area (S/P/Bld) Average GFR for 30-39 years old = 109. [facility] Comment on above: Result Comment: Marker Machine vasu Kidney disease, GFR = <60.Kidney failure, GFR = <15.The GFR estimate is not adjusted for extreme body surface area or acute process, nor has it been validated for women or ethnic groups other than and . Performed By: #### P HY, BUN, CREAT, FX ####Testing performed at [place] [id number] FAX REQUESTon 08-31-2018 FAX TO [phone] Normal [facility] Comment on above: Performed By: #### P HY, BUN, CREAT, FX ####Testing performed at [address] [address] GAL NEW PHYSICIANon 08-31-20 18 GAL [facility] PHYSICIAN DEVAN UP Normal [facility] Comment on above: Performed By: #### P HY, BUN, CREAT, FX ####Testing performed at [address] [address] BUNon 08-27-2018 Urea nitrogen mass conc 24 mg/dL High 03-27 [facility] Comment on above: Performed By: #### 2 [id number] ####OVIDIO E[address]wdfvj9015 [place] [address] Creatinineon 08-27-2018 Creatinine mass conc 1.6 mg/dL High 0.5-1.1 [facility] Comment on above: Performed By: #### 2 [id number] ####OVIDIO Kwwpxrra3709 [place] [address] eGFRon 08-27-2018 eGFR AA 43 mL/min/1.73 m2 [facility] Comment on above: Order Comment: Order added by Discern Expert. Performed By: #### 1 [id number] ####OVIDIO BxyNrvl3218 [place] [address] GFR/1.73 sq M predicted among non-blacks MDRD vol rate/area (S/P/Bld) 36 mL/min/1.73 m2 [facility] Comment on above: Order Comment: Order added by Discern Expert. Performed By: #### 1 [id number] ####OVIDIO WlvZobm7584 [place] [address] Cult,Tissueon 08-26-2018 Cult,Tissue Specimen Description .TISSUE EPIDURAL [...] Trimethoprim/Sulfa <=10 SUSCEPTIBLE Vancomycin <=0.5 SUSCEPTIBLE Normal [facility] Comment on above: Performed By: #### L ACWB #### [address] [id number] Cult,Tissue Specimen Description .SPINE .TISSUE T4 LAMINA [...] Trimethoprim/Sulfa <=10 SUSCEPTIBLE Vancomycin <=0.5 SUSCEPTIBLE Normal [facility] Comment on above: Performed By: #### L ACWB #### [address] [id number] Basic Metabolic Profon 08-25 (cont.) Normal [facility] Comment on above: Result Comment: Aver age GFR for 30-39 years old: 107 mL/min/1.73sq m Chronic Kidney Disease: <60 mL/min/1.73sq m Kidney failure: <15 mL/min/1.73sq m eGFR calculated using average adult body mass. Additional eGFR calculator available at: http://[email or web address].com/multiple_crcl_2012.htm Performed By: #### L ACWB #### [address] [id number] Anion gap molar conc 14 mmol/L Normal 9-17 [facility] Comment on above: Performed By: #### L ACWB #### [facility] [address] [place] [address] Calcium mass conc 9.1 mg/dL Normal 8.6-10.4 [facility] Comment on above: Performed By: #### L ACWB #### [facility] [address] [place] [address] Chloride molar conc 96 mmol/L Low 98-107 [facility] Comment on above: Performed By: #### L ACWB #### [facility] [employer] [address] [place] [address] CO2 molar conc 23 mmol/L Normal 20-31 [facility] Comment on above: Performed By: #### L ACWB #### [facility] [employer] [address] [place] [address] Creatinine mass conc 1.52 mg/dL High 0.50-0.90 [facility] Comment on above: Performed By: #### L ACWB #### [facility] [employer] [address] [place] [address] GFR, Amer 46 mL/min Low >60 [facility] Comment on above: Performed By: #### L ACWB #### [facility] [employer] [address] [place] [address] GFR,non Amer 38 mL/min Low >60 [facility] Comment on above: Performed By: #### L ACWB #### [employer] [address] [place] [address] Glucose mass conc 95 mg/dL Normal 70-99 [facility] Comment on above: Performed By: #### L ACWB #### [facility] [employer] [address] [place] [address] Potassium molar conc 4.5 mmol/L Normal 3.7-5.3 [facility] Comment on above: Performed By: #### L ACWB #### [facility] [employer] [address] [place] [address] Sodium molar conc 133 mmol/L Low 135-144 [facility] Comment on above: Performed By: #### L ACWB #### [facility] [employer] [address] [place] [address] Urea nitrogen mass conc 43 mg/dL High 6-20 [facility] Comment on above: Performed By: #### L ACWB #### [address] [address] BUN/CRE Ratio NOT REPORTED Normal - [facility] Comment on above: Performed By: #### L ACWB #### [address] [address] Staging: NOT REPORTED Normal [facility] Comment on above: Performed By: #### L ACWB #### [facility] [employer] [address] [place] [address] CBC with Diffon 08-25-2018 Abs. Basophil 0.07 k/uL Normal 0.00-0.20 [facility] Comment on above: Performed By: #### L ACWB #### [facility] [employer] [address] [place] [address] Abs.Imm.Granulocyte 0.08 k/uL Normal 0.00-0.30 [facility] Comment on above: Performed By: #### L ACWB #### [facility] [employer] [address] [place] [address] Abs.Neutrophil (Seg) 5.77 k/uL Normal 1.50-8.10 [facility] Comment on above: Performed By: #### L ACWB #### [facility] [employer] [address] [place] [address] Basophils/100 WBC (Bld) 1 % Normal 0-2 [facility] Comment on above: Performed By: #### L ACWB #### [address] [address] Eosinophils #/vol (Bld) 0.12 10*3/uL Normal 0.00-0.44 [facility] Comment on above: Performed By: #### L ACWB #### [address] [address] Eosinophils/100 WBC (Bld) 1 % Normal 1-4 [facility] Comment on above: Performed By: #### L ACWB #### [address] [address] Immature granulocytes #/vol (Bld) 1 % High 0 [facility] Comment on above: Performed By: #### L ACWB #### [address] [address] Lymphocytes #/vol (Bld) 1.83 10*3/uL Normal 1.10-3.70 [facility] Comment on above: Performed By: #### L ACWB #### [address] [address] Lymphocytes/100 WBC (Bld) 21 % Low 24-43 [facility] Comment on above: Performed By: #### L ACWB #### [address] [address] Monocytes #/vol (Bld) 0.92 10*3/uL Normal 0.10-1.20 [facility] Comment on above: Performed By: #### L ACWB #### [address] [address] Monocytes/100 WBC (Bld) 11 % Normal 3-12 [facility] Comment on above: Performed By: #### L ACWB #### [address] [address] Neutrophil (Seg) 66 % High 36-65 [facility] Comment on above: Performed By: #### L ACWB #### [address] [address] Erythrocyte distribution width Ratio (RBC) 14.6 % High 11.8-14.4 [facility] Comment on above: Performed By: #### L ACWB #### [address] [address] Hematocrit Volume Fraction (Bld) 32.6 % Low 36.3-47.1 [facility] Comment on above: Performed By: #### L ACWB #### [address] [address] Hemoglobin mass conc (Bld) 10.0 g/dL Low 11.9-15.1 [facility] Comment on above: Performed By: #### L ACWB #### [address] [address] MCH Entitic mass (RBC) 28.2 pg Normal 25.2-33.5 [facility] Comment on above: Performed By: #### L ACWB #### [address] [address] MCHC mass conc (RBC) 30.7 g/dL Normal 28.4-34.8 [facility] Comment on above: Performed By: #### L ACWB #### [address] [address] MCV Entitic volume (RBC) 91.8 fL Normal 82.6-102.9 [facility] Comment on above: Performed By: #### L ACWB #### [address] [address] NRBC Automated 0.0 per 100 WBC Normal 0.0 [facility] Comment on above: Performed By: #### L ACWB #### [address] [address] Platelet mean volume Entitic volume (Bld) 10.4 fL Normal 8.1-13.5 [facility] Comment on above: Performed By: #### L ACWB #### [address] [address] Platelets #/vol (Bld) 292 10*3/uL Normal 138-453 [facility] Comment on above: Performed By: #### L ACWB #### [address] [address] RBC #/vol (Bld) 3.55 10*6/uL Low 3.95-5.11 [facility] Comment on above: Performed By: #### L ACWB #### [address] [address] RBC morphology finding Nom (Bld) ANISOCYTOSIS PRESENT Normal [facility] Comment on above: Performed By: #### L ACWB #### [address] [address] WBC #/vol (Bld) 8.8 10*3/uL Normal 3.5-11.3 [facility] Comment on above: Performed By: #### L ACWB #### [address] [address] Auto Diff Performed NOT REPORTED Normal [facility] Comment on above: Performed By: #### L ACWB #### [address] [address] Platelets #/vol (Bld) NOT REPORTED Normal [facility] Comment on above: Performed By: #### L ACWB #### [address] [place] [address] WBC Morphology NOT REPORTED Normal [facility] Comment on above: Performed By: #### L ACWB #### [facility] [employer] [facility] [place] [address] Fungi,Direct Examon 08-25-20 18 Fungi,Direct Exam Specimen Description .SPINE .TISSUE T4 LAMINA Special Requests NOT REPORTED Direct Exam NO FUNGAL ELEMENTS SEEN Report Status FINAL 08/25/2018 Normal [facility] Comment on above: Performed By: #### L ACWB #### [facility] [employer] [address] [place] [address] Magnesiumon 08-25-2018 Magnesium mass conc 2.4 mg/dL Normal 1.6-2.6 [facility] Comment on above: Performed By: #### L ACWB #### [address] [address] Procalcitoninon 08-25-2018 Protein mass conc 0.13 ng/mL High <0.09 [facility] Comment on above: Result Comment: Suspected Sepsis: [...] entered into the Change in Procalcitonin Calculator (www.lmahwu-hjr-rdvlcpzyyt.com) to determine the patient's Mortality Risk Prognosis Performed By: #### L ACWB #### [address] [id number] Cult,Aerobe/Anaerobeon 08-24 Cult,Aerobe/Anaerobe Specimen Descriptio n .SPINE Special Requests NOT REPORTED Direct Exam DUPLICATE ORDER SEE RESULTS FOR TISSUE CULTURE Culture NOT REPORTED Report Status FINAL 08/24/2018 [facility] Comment on above: Performed By: #### S PAG #### [address] [id number] Cult,Aerobe/Anaerobe Specimen Descriptio n .SPINE Special Requests NOT REPORTED Direct Exam DUPLICATE ORDER SEE RESUULTS FOR TISSUE CULTURE Culture NOT REPORTED Report Status FINAL 08/24/2018 [facility] Comment on above: Performed By: #### S PAG #### [address] [id number] FLUORO FOR SURGICAL PROCEDUR ESon 08-24-2018 FLUORO FOR SURGICAL PROCEDURES Radiology exam is complete. No Radiologist dictation. Please follow up with ordering provider. Final result Normal [facility] OPERATIVE REPORTon 8 OPERATIVE REPORT [address] [address] OPERATIVE REPORT PATIENT NAME: CELINA GASPAR : 1980 MED REC NO: [id number] ROOM: [id number] ACCOUNT NO: [id number] ADMIT DATE: 08/15/2018 PROVIDER: Lita Mccray MD DATE OF PROCEDURE: 08/23/2018 SURGEON: Lita Mccray MD [employer]AC[employer] MEMBER: Eliel Larios DO PREOPERATIVE DIAGNOSIS: Epidural abscess, [...] satisfactory condition. LITA MCCRAY MD [id number] Doc#: [id number] CC: Lita Mccray MD [facility] Procalcitoninon 08-24-2018 Protein mass conc 0.16 ng/mL High <0.09 [facility] Comment on above: Result Comment: Suspected Sepsis: [...] entered into the Change in Procalcitonin Calculator (www.xuuibe-rqg-wutqgagcrc.com) to determine the patient's Mortality Risk Prognosis Performed By: #### S PAG #### [employer] [address] [place] [address] Basic Metab w/rfx MGon 08-23 (cont.) [facility] Comment on above: Result Comment: Aver age GFR for 30-39 years old: 107 mL/min/1.73sq m Chronic Kidney Disease: <60 mL/min/1.73sq m Kidney failure: <15 mL/min/1.73sq m eGFR calculated using average adult body mass. Additional eGFR calculator available at: http://www.[employer].Factor.io/multiple_crcl_2012.htm Performed By: #### S PAG #### [address] [address] Anion gap molar conc 14 mmol/L Normal 9-17 [facility] Comment on above: Performed By: #### S PAG #### [address] [address] Calcium mass conc 9.9 mg/dL Normal 8.6-10.4 [facility] Comment on above: Performed By: #### S PAG #### [address] [address] Chloride molar conc 99 mmol/L Normal 98-107 [facility] Comment on above: Performed By: #### S PAG #### [address] [address] CO2 molar conc 26 mmol/L Normal 20-31 [facility] Comment on above: Performed By: #### S PAG #### [address] [address] Creatinine mass conc 1.42 mg/dL High 0.50-0.90 [facility] Comment on above: Performed By: #### S PAG #### [address] [address] GFR, Amer 50 mL/min Low >60 [facility] Comment on above: Performed By: #### S PAG #### [address] [address] GFR,non Amer 41 mL/min Low >60 [facility] Comment on above: Performed By: #### S PAG #### [address] [address] Glucose mass conc 95 mg/dL Normal 70-99 [facility] Comment on above: Performed By: #### S PAG #### [address] [address] Potassium molar conc 4.9 mmol/L Normal 3.7-5.3 [facility] Comment on above: Result Comment: SPEC IMEN SLIGHTLY HEMOLYZED, RESULTS MAY BE ADVERSELY AFFECTED. Performed By: #### S PAG #### [facility] [employer] [address] [place] [address] Sodium molar conc 139 mmol/L Normal 135-144 [facility] Comment on above: Performed By: #### S PAG #### [facility] [employer] [address] [place] [address] Urea nitrogen mass conc 31 mg/dL High 6-20 [facility] Comment on above: Performed By: #### S PAG #### [facility] [employer] [address] [place] [address] BUN/CRE Ratio NOT REPORTED Normal 9-20 [facility] Comment on above: Performed By: #### S PAG #### [address] [address] Staging: NOT REPORTED Normal [facility] Comment on above: Performed By: #### S PAG #### [facility] [employer] [address] [place] [address] CBC with Diffon 08-23-2018 Abs. Basophil 0.06 k/uL Normal 0.00-0.20 [facility] Comment on above: Performed By: #### S PAG #### [facility] [employer] [address] [place] [address] Abs.Imm.Granulocyte 0.22 k/uL Normal 0.00-0.30 [facility] Comment on above: Performed By: #### S PAG #### [facility] [employer] [address] [place] [address] Abs.Neutrophil (Seg) 4.43 k/uL Normal 1.50-8.10 [facility] Comment on above: Performed By: #### S PAG #### [address] [address] Basophils/100 WBC (Bld) 1 % Normal 0-2 [facility] Comment on above: Performed By: #### S PAG #### [facility] [employer] [address] [place] [address] Eosinophils #/vol (Bld) 0.15 10*3/uL Normal 0.00-0.44 [facility] Comment on above: Performed By: #### S PAG #### [facility] [employer] [address] [place] [address] Eosinophils/100 WBC (Bld) 2 % Normal 1-4 [facility] Comment on above: Performed By: #### S PAG #### [address] [address] Erythrocyte distribution width Ratio (RBC) 14.4 % Normal 11.8-14.4 [facility] Comment on above: Performed By: #### S PAG #### [address] [address] Hematocrit Volume Fraction (Bld) 33.2 % Low 36.3-47.1 [facility] Comment on above: Performed By: #### S PAG #### [facility] [employer] [address] [place] [address] Hemoglobin mass conc (Bld) 10.4 g/dL Low 11.9-15.1 [facility] Comment on above: Performed By: #### S PAG #### [facility] [employer] [address] [place] [address] Immature granulocytes #/vol (Bld) 3 % High 0 [facility] Comment on above: Performed By: #### S PAG #### [address] [address] Lymphocytes #/vol (Bld) 2.22 10*3/uL Normal 1.10-3.70 [facility] Comment on above: Performed By: #### S PAG #### [address] [address] Lymphocytes/100 WBC (Bld) 29 % Normal 24-43 [facility] Comment on above: Performed By: #### S PAG #### [address] [address] MCH Entitic mass (RBC) 27.7 pg Normal 25.2-33.5 [facility] Comment on above: Performed By: #### S PAG #### [address] [address] MCHC mass conc (RBC) 31.3 g/dL Normal 28.4-34.8 [facility] Comment on above: Performed By: #### S PAG #### [address] [address] MCV Entitic volume (RBC) 88.3 fL Normal 82.6-102.9 [facility] Comment on above: Performed By: #### S PAG #### [address] [address] Monocytes #/vol (Bld) 0.63 10*3/uL Normal 0.10-1.20 [facility] Comment on above: Performed By: #### S PAG #### [address] [address] Monocytes/100 WBC (Bld) 8 % Normal 3-12 [facility] Comment on above: Performed By: #### S PAG #### [address] [address] Neutrophil (Seg) 57 % Normal 36-65 [facility] Comment on above: Performed By: #### S PAG #### [address] [address] NRBC Automated 0.0 per 100 WBC Normal 0.0 [facility] Comment on above: Performed By: #### S PAG #### [address] [address] Platelets #/vol (Bld) See Reflexed IPF Result Normal 138-453 [facility] Comment on above: Performed By: #### S PAG #### [address] [address] RBC #/vol (Bld) 3.76 10*6/uL Low 3.95-5.11 [facility] Comment on above: Performed By: #### S PAG #### [address] [address] WBC #/vol (Bld) 7.7 10*3/uL Normal 3.5-11.3 [facility] Comment on above: Performed By: #### S PAG #### [address] [address] Auto Diff Performed NOT REPORTED Normal [facility] Comment on above: Performed By: #### S PAG #### [address] [address] Platelet mean volume Entitic volume (Bld) NOT REPORTED Normal 8.1-13.5 [facility] Comment on above: Performed By: #### S PAG #### [address] [address] Platelets #/vol (Bld) NOT REPORTED Normal [facility] Comment on above: Performed By: #### S PAG #### [address] [address] RBC morphology finding Nom (Bld) NOT REPORTED Normal [facility] Comment on above: Performed By: #### S PAG #### [address] [address] WBC Morphology NOT REPORTED Normal [facility] Comment on above: Performed By: #### S PAG #### [address] [address] Cult,Bloodon 08-23-2018 Cult,Blood Specimen Description .BLOOD Special Requests L AC 6ML Culture NO GROWTH 6 DAYS Report Status FINAL 08/23/2018 Normal [facility] Comment on above: Performed By: #### S PAG #### [address] [address] Cult,Blood Specimen Description .BLOOD Special Requests L FOREARM 6ML Culture NO GROWTH 6 DAYS Report Status FINAL 08/23/2018 Normal [facility] Comment on above: Performed By: #### S PAG #### [address] [address] PLT, Immature Fract.on 08-23 Platelet, Fluoresc. 113 k/uL Low 138-453 [facility] Comment on above: Performed By: #### S PAG #### [address] [address] PLT, Immature Fract. 3.7 % Normal 1.1-10.3 [facility] Comment on above: Performed By: #### S PAG #### [address] [address] CBC with Diffon 08-22-2018 Abs. Basophil 0.00 k/uL Normal 0.0-0.2 [facility] Comment on above: Performed By: #### U LAG #### [address] [address] Abs.Imm.Granulocyte 0.30 k/uL Normal 0.00-0.30 [facility] Comment on above: Performed By: #### U LAG #### [address] [address] Abs.Neutrophil (Seg) 4.87 k/uL Normal 1.8-7.7 [facility] Comment on above: Performed By: #### U LAG #### [address] [address] Basophils/100 WBC (Bld) 0 % Normal 0-2 [facility] Comment on above: Performed By: #### U LAG #### [address] [address] Eosinophils #/vol (Bld) 0.00 10*3/uL Normal 0.0-0.4 [facility] Comment on above: Performed By: #### U LAG #### [facility] [employer] [address] [place] [address] Eosinophils/100 WBC (Bld) 0 % Low 1-4 [facility] Comment on above: Performed By: #### U LAG #### [address] [address] Immature granulocytes #/vol (Bld) 4 % High 0 [facility] Comment on above: Performed By: #### U LAG #### [facility] [employer] [address] [place] [address] Lymphocytes #/vol (Bld) 1.88 10*3/uL Normal 1.0-4.8 [facility] Comment on above: Performed By: #### U LAG #### [address] [address] Lymphocytes/100 WBC (Bld) 25 % Normal 24-44 [facility] Comment on above: Performed By: #### U LAG #### [facility] [employer] [address] [place] [address] Monocytes #/vol (Bld) 0.45 10*3/uL Normal 0.1-0.8 [facility] Comment on above: Performed By: #### U LAG #### [facility] [employer] [address] [place] [address] Monocytes/100 WBC (Bld) 6 % Normal 1-7 [facility] Comment on above: Performed By: #### U LAG #### [facility] [employer] [address] [place] [address] Morphology Interp Rehan (Bld) ANISOCYTOSIS PRESENT Normal [facility] Comment on above: Performed By: #### U LAG #### [facility] [employer] [address] [place] [address] Neutrophil (Seg) 65 % Normal 36-66 [facility] Comment on above: Performed By: #### U LAG #### [facility] [employer] [address] [place] [address] Erythrocyte distribution width Ratio (RBC) 14.5 % High 11.8-14.4 [facility] Comment on above: Performed By: #### U LAG #### [facility] [employer] [address] [place] [address] Hematocrit Volume Fraction (Bld) 38.1 % Normal 36.3-47.1 [facility] Comment on above: Performed By: #### U LAG #### [facility] [employer] [address] [place] [address] Hemoglobin mass conc (Bld) 11.5 g/dL Low 11.9-15.1 [facility] Comment on above: Performed By: #### U LAG #### [facility] [employer] [address] [place] [address] MCH Entitic mass (RBC) 28.3 pg Normal 25.2-33.5 [facility] Comment on above: Performed By: #### U LAG #### [address] [address] MCHC mass conc (RBC) 30.2 g/dL Normal 28.4-34.8 [facility] Comment on above: Performed By: #### U LAG #### [address] [address] MCV Entitic volume (RBC) 93.6 fL Normal 82.6-102.9 [facility] Comment on above: Performed By: #### U LAG #### [address] [address] NRBC Automated 0.0 per 100 WBC Normal 0.0 [facility] Comment on above: Performed By: #### U LAG #### [address] [address] Platelet mean volume Entitic volume (Bld) 10.7 fL Normal 8.1-13.5 [facility] Comment on above: Performed By: #### U LAG #### [address] [address] Platelets #/vol (Bld) 265 10*3/uL Normal 138-453 [facility] Comment on above: Performed By: #### U LAG #### [address] [address] RBC #/vol (Bld) 4.07 10*6/uL Normal 3.95-5.11 [facility] Comment on above: Performed By: #### U LAG #### [address] [address] WBC #/vol (Bld) 7.5 10*3/uL Normal 3.5-11.3 [facility] Comment on above: Performed By: #### U LAG #### [facility] [employer] [facility] [place] [address] Auto Diff Performed NOT REPORTED Normal [facility] Comment on above: Performed By: #### U LAG #### [facility] [employer] [address] [place] [address] Platelets #/vol (Bld) NOT REPORTED Normal [facility] Comment on above: Performed By: #### U LAG #### [facility] [employer] [address] [place] [address] RBC morphology finding Nom (Bld) NOT REPORTED Normal [facility] Comment on above: Performed By: #### U LAG #### [facility] [employer] [address] [place] [address] WBC Morphology NOT REPORTED Normal [facility] Comment on above: Performed By: #### U LAG #### [facility] [employer] [address] [place] [address] Comp Metabolic Pr/rfx MGon 1 10-22-2017 Albumin mass conc 3.2 g/dL Low 3.5-5.2 [facility] Comment on above: Performed By: #### U LAG #### [facility] [employer] [address] [place] [address] Albumin/Globulin mass ratio 0.8 {ratio} Low 1.0-2.5 [facility] Comment on above: Performed By: #### U LAG #### [facility] [employer] [address] [place] [address] Alkaline Phos 90 U/L Normal 35-104 [facility] Comment on above: Performed By: #### U LAG #### [facility] [employer] [address] [place] [address] ALT enzyme act/vol 18 U/L Normal 5-33 [facility] Comment on above: Performed By: #### U LAG #### [employer] [facility] [place] [address] AST enzyme act/vol 16 U/L Normal <32 [facility] Comment on above: Performed By: #### U LAG #### [employer] [facility] [place] [address] Protein mass conc 7.0 g/dL Normal 6.4-8.3 [facility] Comment on above: Performed By: #### U LAG #### [employer] [address] [place] [address] (cont.) Normal [facility] Comment on above: Result Comment: Aver age GFR for 30-39 years old: 107 mL/min/1.73sq m Chronic Kidney Disease: <60 mL/min/1.73sq m Kidney failure: <15 mL/min/1.73sq m eGFR calculated using average adult body mass. Additional eGFR calculator available at: http://www.[employer]/multiple_crcl_2012.htm Performed By: #### U LAG #### [employer] [address] [place] [address] Anion gap molar conc 15 mmol/L Normal 9-17 [facility] Comment on above: Performed By: #### U LAG #### [employer] [address] [place] [address] Bilirubin Ql (U) 0.34 mg/dL Normal 0.3-1.2 [facility] Comment on above: Performed By: #### U LAG #### [employer] [address] [place] [address] Calcium mass conc 9.7 mg/dL Normal 8.6-10.4 [facility] Comment on above: Performed By: #### U LAG #### [employer] [facility] [place] [address] Chloride molar conc 100 mmol/L Normal 98-107 [facility] Comment on above: Performed By: #### U LAG #### [facility] [employer] [address] [place] [address]365 CO2 molar conc 24 mmol/L Normal 20-31 [facility] Comment on above: Performed By: #### U LAG #### [facility] [employer] [address] [place] [address] Creatinine mass conc 1.02 mg/dL High 0.50-0.90 [facility] Comment on above: Performed By: #### U LAG #### [facility] [employer] [address] [place] [address]692 GFR, Amer >60 Normal >60 [facility] Comment on above: Performed By: #### U LAG #### [facility] [employer] [address] [place] [address] GFR,non Amer >60 Normal >60 [facility] Comment on above: Performed By: #### U LAG #### [facility] [employer] [address] [place] [address] Glucose mass conc 101 mg/dL High 70-99 [facility] Comment on above: Performed By: #### U LAG #### [facility] [employer] [address] [place] [address]698 Potassium molar conc 4.5 mmol/L Normal 3.7-5.3 [facility] Comment on above: Performed By: #### U LAG #### [facility] [employer] [address] [place] [address] Sodium molar conc 139 mmol/L Normal 135-144 [facility] Comment on above: Performed By: #### U LAG #### [facility] [employer] [address] [place] [address] Urea nitrogen mass conc 19 mg/dL Normal 6-20 [facility] Comment on above: Performed By: #### U LAG #### [facility] [employer] [address] [place] [address] BUN/CRE Ratio NOT REPORTED Normal 06-24 [facility] Comment on above: Performed By: #### U LAG #### [facility] [employer] [address] [place] [address] Staging: NOT REPORTED Normal [facility] Comment on above: Performed By: #### U LAG #### [facility] [employer] [address] [place] [address] [id number] Magnesiumon 08-22-2018 Magnesium mass conc 2.4 mg/dL Normal 1.6-2.6 [facility] Comment on above: Performed By: #### U LAG #### [facility] [employer] [address] [place] [address] 89561 Vancomycin Troughon 08-22-20 18 Vancomycin Trough 20.2 ug/mL Critically high 10.0-20.0 [facility] Comment on above: Result Comment: High er trough serum vancomycin concentrations of 15-20 ug/mL are recommended for complicated infections such as bacteremia, endocarditis, osteomyelitis, meningitis, and hospital acquired pneumonia. ADDED ON Performed By: #### U LAG #### [facility] [employer] [address] [place] [address] 18419 Date last dose, NOT REPORTED Normal [facility] Comment on above: Performed By: #### U LAG #### [facility] [employer] [address] [place] [address] 81265 Dose amount, NOT REPORTED Normal [facility] Comment on above: Performed By: #### U LAG #### [facility] [employer] [address] [place] [address] 87928 Time last dose, NOT REPORTED Normal [facility] Comment on above: Performed By: #### U LAG #### [facility] [employer] [address] [place] [address] 29576 CBC with Diffon 08-21-2018 Abs. Basophil 0.08 k/uL Normal 0.00-0.20 [facility] Comment on above: Performed By: #### U LAG #### [address] [address] Abs.Imm.Granulocyte 0.50 k/uL High 0.00-0.30 [facility] Comment on above: Performed By: #### U LAG #### [address] [address] Abs.Neutrophil (Seg) 4.73 k/uL Normal 1.50-8.10 [facility] Comment on above: Performed By: #### U LAG #### [address] [address] Basophils/100 WBC (Bld) 1 % Normal 0-2 [facility] Comment on above: Performed By: #### U LAG #### [address] [address] Eosinophils #/vol (Bld) 0.17 10*3/uL Normal 0.00-0.44 [facility] Comment on above: Performed By: #### U LAG #### [address] [address] Eosinophils/100 WBC (Bld) 2 % Normal 1-4 [facility] Comment on above: Performed By: #### U LAG #### [address] [address] Immature granulocytes #/vol (Bld) 6 % High 0 [facility] Comment on above: Performed By: #### U LAG #### [address] [address] Lymphocytes #/vol (Bld) 2.24 10*3/uL Normal 1.10-3.70 [facility] Comment on above: Performed By: #### U LAG #### [address] [place] [address] Lymphocytes/100 WBC (Bld) 27 % Normal 24-43 [facility] Comment on above: Performed By: #### U LAG #### [address] [address] Monocytes #/vol (Bld) 0.58 10*3/uL Normal 0.10-1.20 [facility] Comment on above: Performed By: #### U LAG #### [address] [address] Monocytes/100 WBC (Bld) 7 % Normal 3-12 [facility] Comment on above: Performed By: #### U LAG #### [address] [address] Morphology Interp Rehan (Bld) ANISOCYTOSIS PRESENT Normal [facility] Comment on above: Performed By: #### U LAG #### [address] [address] Neutrophil (Seg) 57 % Normal 36-65 [facility] Comment on above: Performed By: #### U LAG #### [address] [address] Erythrocyte distribution width Ratio (RBC) 14.6 % High 11.8-14.4 [facility] Comment on above: Performed By: #### U LAG #### [address] [address] Hematocrit Volume Fraction (Bld) 38.5 % Normal 36.3-47.1 [facility] Comment on above: Performed By: #### U LAG #### [address] [address] Hemoglobin mass conc (Bld) 11.5 g/dL Low 11.9-15.1 [facility] Comment on above: Performed By: #### U LAG #### [address] [address] MCH Entitic mass (RBC) 28.2 pg Normal 25.2-33.5 [facility] Comment on above: Performed By: #### U LAG #### [address] [address] MCHC mass conc (RBC) 29.9 g/dL Normal 28.4-34.8 [facility] Comment on above: Performed By: #### U LAG #### [address] [address] MCV Entitic volume (RBC) 94.4 fL Normal 82.6-102.9 [facility] Comment on above: Performed By: #### U LAG #### [address] [address] NRBC Automated 0.0 per 100 WBC Normal 0.0 [facility] Comment on above: Performed By: #### U LAG #### [address] [address] Platelet mean volume Entitic volume (Bld) 10.5 fL Normal 8.1-13.5 [facility] Comment on above: Performed By: #### U LAG #### [address] [address] Platelets #/vol (Bld) 264 10*3/uL Normal 138-453 [facility] Comment on above: Performed By: #### U LAG #### [address] [address] RBC #/vol (Bld) 4.08 10*6/uL Normal 3.95-5.11 [facility] Comment on above: Performed By: #### U LAG #### [facility] [employer] [facility] [place] [address] WBC #/vol (Bld) 8.3 10*3/uL Normal 3.5-11.3 [facility] Comment on above: Performed By: #### U LAG #### [address] [address] Auto Diff Performed NOT REPORTED Normal [facility] Comment on above: Performed By: #### U LAG #### [facility] [employer] [address] [place] [address]39 Platelets #/vol (Bld) NOT REPORTED Normal [facility] Comment on above: Performed By: #### U LAG #### [facility] [employer] [address] [place] [address] 54660 RBC morphology finding Nom (Bld) NOT REPORTED Normal [facility] Comment on above: Performed By: #### U LAG #### [facility] [employer] [address] [place] [address] WBC Morphology NOT REPORTED Normal [facility] Comment on above: Performed By: #### U LAG #### [address] [address] Comp Metabolic Pr/rfx MGon 1 10-21-2017 (cont.) Normal [facility] Comment on above: Result Comment: Aver age GFR for 30-39 years old: 107 mL/min/1.73sq m Chronic Kidney Disease: <60 mL/min/1.73sq m Kidney failure: <15 mL/min/1.73sq m eGFR calculated using average adult body mass. Additional eGFR calculator available at: http://www.[employer].Factor.io/multiple_crcl_2012.htm Performed By: #### U LAG #### [address] [address] Albumin mass conc 2.9 g/dL Low 3.5-5.2 [facility] Comment on above: Performed By: #### U LAG #### [facility] [employer] [address] [place] [address] Albumin/Globulin mass ratio 0.7 {ratio} Low 1.0-2.5 [facility] Comment on above: Performed By: #### U LAG #### [facility] [employer] [address] [place] [address] Alkaline Phos 98 U/L Normal 35-104 [facility] Comment on above: Performed By: #### U LAG #### [facility] [employer] [address] [place] [address] 93775 ALT enzyme act/vol 19 U/L Normal 5-33 [facility] Comment on above: Performed By: #### U LAG #### [facility] [employer] [address] [place] [address]27 Anion gap molar conc 14 mmol/L Normal 9-17 [facility] Comment on above: Performed By: #### U LAG #### [facility] [employer] [address] [place] [address] 64597 AST enzyme act/vol 21 U/L Normal <32 [facility] Comment on above: Performed By: #### U LAG #### [facility] [employer] [address] [place] [address]33 Bilirubin Ql (U) 0.32 mg/dL Normal 0.3-1.2 [facility] Comment on above: Performed By: #### U LAG #### [facility] [employer] [address] [place] [address]328 Calcium mass conc 9.1 mg/dL Normal 8.6-10.4 [facility] Comment on above: Performed By: #### U LAG #### [facility] [employer] [address] [place] [address] 24681 Chloride molar conc 102 mmol/L Normal 98-107 [facility] Comment on above: Performed By: #### U LAG #### [facility] [address] [place] [address] CO2 molar conc 23 mmol/L Normal 20-31 [facility] Comment on above: Performed By: #### U LAG #### [facility] [address] [place] [address] Creatinine mass conc 0.90 mg/dL Normal 0.50-0.90 [facility] Comment on above: Performed By: #### U LAG #### [facility] [employer] [address] [place] [address] 67850 GFR, Amer >60 Normal >60 [facility] Comment on above: Performed By: #### U LAG #### [facility] [address] [place] [address] 54782 GFR,non Amer >60 Normal >60 [facility] Comment on above: Performed By: #### U LAG #### [facility] [employer] [address] [place] [address] 92484 Glucose mass conc 108 mg/dL High 70-99 [facility] Comment on above: Performed By: #### U LAG #### [facility] [employer] [address] [place] [address]148 Potassium molar conc 4.6 mmol/L Normal 3.7-5.3 [facility] Comment on above: Performed By: #### U LAG #### [facility] [employer] [address] [place] [address] 17003 Protein mass conc 6.9 g/dL Normal 6.4-8.3 [facility] Comment on above: Performed By: #### U LAG #### [facility] [employer] [address] [place] [address] 04589 Sodium molar conc 139 mmol/L Normal 135-144 [facility] Comment on above: Performed By: #### U LAG #### [facility] [place] [address] Urea nitrogen mass conc 17 mg/dL Normal -20 [facility] Comment on above: Performed By: #### U LAG #### [facility] [place] [address] BUN/CRE Ratio NOT REPORTED Normal - [facility] Comment on above: Performed By: #### U LAG #### [facility] [address] [place] [address] 89946 Staging: NOT REPORTED Normal [facility] Comment on above: Performed By: #### U LAG #### [facility] [address] [place] [address] 0[address]64 Cult,Bloodon 08-21-2018 Cult,Blood Specimen Description .BLOOD Special Requests L AC 20ML Culture POSITIVE Blood Culture CALLED TO [facility] [phone] [id number] DIRECT GRAM STAIN FROM BOTTLE: GRAM POSITIVE COCCI IN CLUSTERS METHICILLIN RESISTANT STAPHYLOCOCCUS AUREUS For susceptibility, refer to previous culture. Report Status FINAL 08/21/2018 Normal [facility] Comment on above: Performed By: #### U LAG #### [address] [address] MRI FOOT LEFT W WO CONTRASTo n [...] Murali Goff MD 08/21/18 Final result Normal [facility] Magnesiumon 08-21-2018 Magnesium mass conc 2.4 mg/dL Normal 1.6-2.6 [facility] Comment on above: Performed By: #### U LAG #### [facility] [address] [place] [address] Procalcitoninon 08-21-2018 Protein mass conc 0.27 ng/mL High <0.09 [facility] Comment on above: Result Comment: Suspected Sepsis: [...] entered into the Change in Procalcitonin Calculator (www.pyxewj-jmz-ughgrbuhmx.Factor.io) to determine the patient's Mortality Risk Prognosis Performed By: #### U LAG #### [employer] [address] [place] [address] C-Reactive Proteinon 018 CRP mass conc 50.4 mg/L High 0.0-5.0 [facility] Comment on above: Performed By: #### L ACDS, TROPI, PRCAL, MYCM #### [employer] [address] [place] [address] CBC with Diffon 08-20-2018 Abs. Basophil 0.08 k/uL Normal 0.0-0.2 [facility] Comment on above: Performed By: #### L ACDS, TROPI, PRCAL, MYCM #### [employer] [address] [place] [address]34 Abs.Imm.Granulocyte 0.42 k/uL High 0.00-0.30 [facility] Comment on above: Performed By: #### L ACDS, TROPI, PRCAL, MYCM #### [employer] [address] [place] [address] Abs.Neutrophil (Seg) 4.57 k/uL Normal 1.8-7.7 [facility] Comment on above: Performed By: #### L ACDS, TROPI, PRCAL, MYCM #### [employer] [address] [place] [address] Basophils/100 WBC (Bld) 1 % Normal 0-2 [facility] Comment on above: Performed By: #### L ACDS, TROPI, PRCAL, MYCM #### [address] [address] Eosinophils #/vol (Bld) 0.25 10*3/uL Normal 0.0-0.4 [facility] Comment on above: Performed By: #### L ACDS, TROPI, PRCAL, MYCM #### [address] [address] Eosinophils/100 WBC (Bld) 3 % Normal 1-4 [facility] Comment on above: Performed By: #### L ACDS, TROPI, PRCAL, MYCM #### [address] [address] Immature granulocytes #/vol (Bld) 5 % High 0 [facility] Comment on above: Performed By: #### L ACDS, TROPI, PRCAL, MYCM #### [address] [address] Lymphocytes #/vol (Bld) 2.32 10*3/uL Normal 1.0-4.8 [facility] Comment on above: Performed By: #### L ACDS, TROPI, PRCAL, MYCM #### [facility] [employer] [address] [place] [address]120 Lymphocytes/100 WBC (Bld) 28 % Normal 24-44 [facility] Comment on above: Performed By: #### L ACDS, TROPI, PRCAL, MYCM #### [address] [address] Monocytes #/vol (Bld) 0.66 10*3/uL Normal 0.1-0.8 [facility] Comment on above: Performed By: #### L ACDS, TROPI, PRCAL, MYCM #### [address] [address] Monocytes/100 WBC (Bld) 8 % High 1-7 [facility] Comment on above: Performed By: #### L ACDS, TROPI, PRCAL, MYCM #### [facility] [employer] [address] [place] [address]692 Morphology Interp Rehan (Bld) ANISOCYTOSIS PRESENT Normal [facility] Comment on above: Performed By: #### L ACDS, TROPI, PRCAL, MYCM #### [address] [address] Neutrophil (Seg) 55 % Normal 36-66 [facility] Comment on above: Performed By: #### L ACDS, TROPI, PRCAL, MYCM #### [facility] [employer] [address] [place] [address] Erythrocyte distribution width Ratio (RBC) 14.6 % High 11.8-14.4 [facility] Comment on above: Performed By: #### L ACDS, TROPI, PRCAL, MYCM #### [address] [address] Hematocrit Volume Fraction (Bld) 33.5 % Low 36.3-47.1 [facility] Comment on above: Performed By: #### L ACDS, TROPI, PRCAL, MYCM #### [facility] [employer] [address] [place] [address] 72755 Hemoglobin mass conc (Bld) 10.2 g/dL Low 11.9-15.1 [facility] Comment on above: Performed By: #### L ACDS, TROPI, PRCAL, MYCM #### [facility] [employer] [address] [place] [address] 24584 MCH Entitic mass (RBC) 27.9 pg Normal 25.2-33.5 [facility] Comment on above: Performed By: #### L ACDS, TROPI, PRCAL, MYCM #### [address] [address] MCHC mass conc (RBC) 30.4 g/dL Normal 28.4-34.8 [facility] Comment on above: Performed By: #### L ACDS, TROPI, PRCAL, MYCM #### [facility] [employer] [address] [place] [address] 44487 MCV Entitic volume (RBC) 91.5 fL Normal 82.6-102.9 [facility] Comment on above: Performed By: #### L ACDS, TROPI, PRCAL, MYCM #### [address] [address] NRBC Automated 0.0 per 100 WBC Normal 0.0 [facility] Comment on above: Performed By: #### L ACDS, TROPI, PRCAL, MYCM #### [address] [address] Platelet mean volume Entitic volume (Bld) 11.0 fL Normal 8.1-13.5 [facility] Comment on above: Performed By: #### L ACDS, TROPI, PRCAL, MYCM #### [address] [address] Platelets #/vol (Bld) 211 10*3/uL Normal 138-453 [facility] Comment on above: Performed By: #### L ACDS, TROPI, PRCAL, MYCM #### [address] [address] RBC #/vol (Bld) 3.66 10*6/uL Low 3.95-5.11 [facility] Comment on above: Performed By: #### L ACDS, TROPI, PRCAL, MYCM #### [address] [address] WBC #/vol (Bld) 8.3 10*3/uL Normal 3.5-11.3 [facility] Comment on above: Performed By: #### L ACDS, TROPI, PRCAL, MYCM #### [facility] [employer] [address] [place] [address] 16393 Auto Diff Performed NOT REPORTED Normal [facility] Comment on above: Performed By: #### L ACDS, TROPI, PRCAL, MYCM #### [facility] [employer] [address] [place] [address]30 Platelets #/vol (Bld) NOT REPORTED Normal [facility] Comment on above: Performed By: #### L ACDS, TROPI, PRCAL, MYCM #### [facility] [employer] [address] [place] [address] 41914 RBC morphology finding Nom (Bld) NOT REPORTED Normal [facility] Comment on above: Performed By: #### L ACDS, TROPI, PRCAL, MYCM #### [facility] [employer] [address] [place] [address]26 WBC Morphology NOT REPORTED Normal [facility] Comment on above: Performed By: #### L ACDS, TROPI, PRCAL, MYCM #### [facility] [employer] [address] [place] [address] Comp Metabolic Pr/rfx MGon 1 10-20-2017 (cont.) Normal [facility] Comment on above: Result Comment: Aver age GFR for 30-39 years old: 107 mL/min/1.73sq m Chronic Kidney Disease: <60 mL/min/1.73sq m Kidney failure: <15 mL/min/1.73sq m eGFR calculated using average adult body mass. Additional eGFR calculator available at: http://www.globalrp.Factor.io/multiple_crcl_2012.htm Performed By: #### L ACDS, TROPI, PRCAL, MYCM #### [facility] [employer] [address] [place] [address] 00692 Albumin mass conc 3.1 g/dL Low 3.5-5.2 [facility] Comment on above: Performed By: #### L ACDS, TROPI, PRCAL, MYCM #### [facility] [employer] [address] [place] [address] 89562 Albumin/Globulin mass ratio 0.9 {ratio} Low 1.0-2.5 [facility] Comment on above: Performed By: #### L ACDS, TROPI, PRCAL, MYCM #### [facility] [employer] [address] [place] [address] 11321 Alkaline Phos 83 U/L Normal 35-104 [facility] Comment on above: Performed By: #### L ACDS, TROPI, PRCAL, MYCM #### [facility] [employer] [address] [place] [address] 43919 ALT enzyme act/vol 17 U/L Normal 5-33 [facility] Comment on above: Performed By: #### L ACDS, TROPI, PRCAL, MYCM #### [facility] [employer] [address] [place] [address] 43739 Anion gap molar conc 11 mmol/L Normal 9-17 [facility] Comment on above: Performed By: #### L ACDS, TROPI, PRCAL, MYCM #### [facility] [employer] [address] [place] [address] 10501 AST enzyme act/vol 18 U/L Normal <32 [facility] Comment on above: Performed By: #### L ACDS, TROPI, PRCAL, MYCM #### [facility] [address] [place] [address] Bilirubin Ql (U) 0.29 mg/dL Low 0.3-1.2 [facility] Comment on above: Performed By: #### L ACDS, TROPI, PRCAL, MYCM #### [facility] [employer] [address] [place] [address] 93185 Calcium mass conc 9.0 mg/dL Normal 8.6-10.4 [facility] Comment on above: Performed By: #### L ACDS, TROPI, PRCAL, MYCM #### [facility] [employer] [address] [place] [address] 03929 Chloride molar conc 101 mmol/L Normal 98-107 [facility] Comment on above: Performed By: #### L ACDS, TROPI, PRCAL, MYCM #### [facility] [employer] [address] [place] [address] 91009 CO2 molar conc 27 mmol/L Normal 20-31 [facility] Comment on above: Performed By: #### L ACDS, TROPI, PRCAL, MYCM #### [facility] [employer] [address] [place] [address] 13041 Creatinine mass conc 0.97 mg/dL High 0.50-0.90 [facility] Comment on above: Performed By: #### L ACDS, TROPI, PRCAL, MYCM #### [facility] [employer] [address] [place] [address] 78738 GFR, Amer >60 Normal >60 [facility] Comment on above: Performed By: #### L ACDS, TROPI, PRCAL, MYCM #### [facility] [employer] [address] [place] [address] 58581 GFR,non Amer >60 Normal >60 [facility] Comment on above: Performed By: #### L ACDS, TROPI, PRCAL, MYCM #### [facility] [employer] [address] [place] [address] 24707 Glucose mass conc 105 mg/dL High 70-99 [facility] Comment on above: Performed By: #### L ACDS, TROPI, PRCAL, MYCM #### [facility] [employer] [address] [place] [address] 84397 Potassium molar conc 4.4 mmol/L Normal 3.7-5.3 [facility] Comment on above: Performed By: #### L ACDS, TROPI, PRCAL, MYCM #### [facility] [address] [place] [address] 79334 Protein mass conc 6.6 g/dL Normal 6.4-8.3 [facility] Comment on above: Performed By: #### L ACDS, TROPI, PRCAL, MYCM #### [facility] [employer] [address] [place] [address] 16384 Sodium molar conc 139 mmol/L Normal 135-144 [facility] Comment on above: Performed By: #### L ACDS, TROPI, PRCAL, MYCM #### [facility] [employer] [address] [place] [address] 97766 Urea nitrogen mass conc 15 mg/dL Normal -20 [facility] Comment on above: Performed By: #### L ACDS, TROPI, PRCAL, MYCM #### [facility] [employer] [address] [place] [address] 10214 BUN/CRE Ratio NOT REPORTED Normal - [facility] Comment on above: Performed By: #### L ACDS, TROPI, PRCAL, MYCM #### [facility] [address] [place] [address] 74338 Staging: NOT REPORTED Normal [facility] Comment on above: Performed By: #### L ACDS, TROPI, PRCAL, MYCM #### [facility] [address] [place] [address] 045[address] Magnesiumon 08-20-2018 Magnesium mass conc 2.2 mg/dL Normal 1.6-2.6 [facility] Comment on above: Performed By: #### L ACDS, TROPI, PRCAL, MYCM #### [address] [address] Sedimentation Rateon 018 Sedimentation Rate 100 mm High 0-20 [facility] Comment on above: Performed By: #### L ACDS, TROPI, PRCAL, MYCM #### [address] [address] XR FOOT LEFT (MIN 3 VIEWS)on 08-20-2018 [...] Andrey Angelo MD 08/20/18 Final result Normal [facility] CBC with Diffon 08-19-2018 Abs. Basophil 0.00 k/uL Normal 0.0-0.2 [facility] Comment on above: Performed By: #### L ACDS, TROPI, PRCAL, MYCM #### [address] [address] Abs.Imm.Granulocyte 0.42 k/uL High 0.00-0.30 [facility] Comment on above: Performed By: #### L ACDS, TROPI, PRCAL, MYCM #### [address] [address] Abs.Neutrophil (Seg) 2.70 k/uL Normal 1.8-7.7 [facility] Comment on above: Performed By: #### L ACDS, TROPI, PRCAL, MYCM #### [facility] [employer] [address] [place] [address] 69842 Basophils/100 WBC (Bld) 0 % Normal 0-2 [facility] Comment on above: Performed By: #### L ACDS, TROPI, PRCAL, MYCM #### [address] [address] Eosinophils #/vol (Bld) 0.30 10*3/uL Normal 0.0-0.4 [facility] Comment on above: Performed By: #### L ACDS, TROPI, PRCAL, MYCM #### [facility] [employer] [address] [place] [address] 62808 Eosinophils/100 WBC (Bld) 5 % High 1-4 [facility] Comment on above: Performed By: #### L ACDS, TROPI, PRCAL, MYCM #### [address] [address] Immature granulocytes #/vol (Bld) 7 % High 0 [facility] Comment on above: Performed By: #### L ACDS, TROPI, PRCAL, MYCM #### [address] [address] Lymphocytes #/vol (Bld) 2.22 10*3/uL Normal 1.0-4.8 [facility] Comment on above: Performed By: #### L ACDS, TROPI, PRCAL, MYCM #### [facility] [employer] [address] [place] [address] 31543 Lymphocytes/100 WBC (Bld) 37 % Normal 24-44 [facility] Comment on above: Performed By: #### L ACDS, TROPI, PRCAL, MYCM #### [facility] [employer] [address] [place] [address] 71432 Monocytes #/vol (Bld) 0.36 10*3/uL Normal 0.1-0.8 [facility] Comment on above: Performed By: #### L ACDS, TROPI, PRCAL, MYCM #### [address] [address] Monocytes/100 WBC (Bld) 6 % Normal 1-7 [facility] Comment on above: Performed By: #### L ACDS, TROPI, PRCAL, MYCM #### [facility] [employer] [address] [place] [address] 28468 Morphology Interp Rehan (Bld) ANISOCYTOSIS PRESENT Normal [facility] Comment on above: Performed By: #### L ACDS, TROPI, PRCAL, MYCM #### [facility] [employer] [address] [place] [address] 28223 Neutrophil (Seg) 45 % Normal 36-66 [facility] Comment on above: Performed By: #### L ACDS, TROPI, PRCAL, MYCM #### [facility] [employer] [address] [place] [address] 32715 Erythrocyte distribution width Ratio (RBC) 14.6 % High 11.8-14.4 [facility] Comment on above: Performed By: #### L ACDS, TROPI, PRCAL, MYCM #### [address] [address] Hematocrit Volume Fraction (Bld) 34.4 % Low 36.3-47.1 [facility] Comment on above: Performed By: #### L ACDS, TROPI, PRCAL, MYCM #### [facility] [employer] [address] [place] [address] 03333 Hemoglobin mass conc (Bld) 10.4 g/dL Low 11.9-15.1 [facility] Comment on above: Performed By: #### L ACDS, TROPI, PRCAL, MYCM #### [facility] [employer] [address] [place] [address] 65774 MCH Entitic mass (RBC) 28.0 pg Normal 25.2-33.5 [facility] Comment on above: Performed By: #### L ACDS, TROPI, PRCAL, MYCM #### [facility] [employer] [address] [place] [address] 98433 MCHC mass conc (RBC) 30.2 g/dL Normal 28.4-34.8 [facility] Comment on above: Performed By: #### L ACDS, TROPI, PRCAL, MYCM #### [facility] [employer] [address] [place] [address] 93079 MCV Entitic volume (RBC) 92.7 fL Normal 82.6-102.9 [facility] Comment on above: Performed By: #### L ACDS, TROPI, PRCAL, MYCM #### [facility] [employer] [address] [place] [address] 73594 NRBC Automated 0.3 per 100 WBC High 0.0 [facility] Comment on above: Performed By: #### L ACDS, TROPI, PRCAL, MYCM #### [facility] [employer] [address] [place] [address] 14691 Platelet mean volume Entitic volume (Bld) 10.5 fL Normal 8.1-13.5 [facility] Comment on above: Performed By: #### L ACDS, TROPI, PRCAL, MYCM #### [facility] [employer] [address] [place] [address] 65749 Platelets #/vol (Bld) 168 10*3/uL Normal 138-453 [facility] Comment on above: Performed By: #### L ACDS, TROPI, PRCAL, MYCM #### [facility] [employer] [address] [place] [address] 49928 RBC #/vol (Bld) 3.71 10*6/uL Low 3.95-5.11 [facility] Comment on above: Performed By: #### L ACDS, TROPI, PRCAL, MYCM #### [facility] [employer] [address] [place] [address] 79581 WBC #/vol (Bld) 6.0 10*3/uL Normal 3.5-11.3 [facility] Comment on above: Performed By: #### L ACDS, TROPI, PRCAL, MYCM #### [facility] [employer] [address] [place] [address] 47772 Auto Diff Performed NOT REPORTED Normal [facility] Comment on above: Performed By: #### L ACDS, TROPI, PRCAL, MYCM #### [facility] [employer] [address] [place] [address] 49420 Platelets #/vol (Bld) NOT REPORTED Normal [facility] Comment on above: Performed By: #### L ACDS, TROPI, PRCAL, MYCM #### [facility] [employer] [address] [place] [address] 45771 RBC morphology finding Nom (Bld) NOT REPORTED Normal [facility] Comment on above: Performed By: #### L ACDS, TROPI, PRCAL, MYCM #### [facility] [employer] [address] [place] [address] 37455 WBC Morphology NOT REPORTED Normal [facility] Comment on above: Performed By: #### L ACDS, TROPI, PRCAL, MYCM #### [facility] [employer] [address] [place] [address] 88389 Comp Metabolic Pr/rfx MGon 1 10-19-2017 (cont.) Normal [facility] Comment on above: Result Comment: Aver age GFR for 30-39 years old: 107 mL/min/1.73sq m Chronic Kidney Disease: <60 mL/min/1.73sq m Kidney failure: <15 mL/min/1.73sq m eGFR calculated using average adult body mass. Additional eGFR calculator available at: http://www.[employer].Factor.io/multiple_crcl_2012.htm Performed By: #### L ACDS, TROPI, PRCAL, MYCM #### [facility] [employer] [address] [place] [address] 53491 Albumin mass conc 2.7 g/dL Low 3.5-5.2 [facility] Comment on above: Performed By: #### L ACDS, TROPI, PRCAL, MYCM #### [facility] [employer] [address] [place] [address] 47880 Albumin/Globulin mass ratio 0.8 {ratio} Low 1.0-2.5 [facility] Comment on above: Performed By: #### L ACDS, TROPI, PRCAL, MYCM #### [facility] [employer] [address] [place] [address] 42702 Alkaline Phos 78 U/L Normal 35-104 [facility] Comment on above: Performed By: #### L ACDS, TROPI, PRCAL, MYCM #### [facility] [employer] [address] [place] [address] 66263 ALT enzyme act/vol 16 U/L Normal 5-33 [facility] Comment on above: Performed By: #### L ACDS, TROPI, PRCAL, MYCM #### [facility] [employer] [address] [place] [address] 85991 Anion gap molar conc 10 mmol/L Normal 9-17 [facility] Comment on above: Performed By: #### L ACDS, TROPI, PRCAL, MYCM #### [facility] [employer] [address] [place] [address] 72902 AST enzyme act/vol 16 U/L Normal <32 [facility] Comment on above: Performed By: #### L ACDS, TROPI, PRCAL, MYCM #### [facility] [employer] [address] [place] [address] 74041 Bilirubin Ql (U) 0.21 mg/dL Low 0.3-1.2 [facility] Comment on above: Performed By: #### L ACDS, TROPI, PRCAL, MYCM #### [facility] [employer] [address] [place] [address] 31289 Calcium mass conc 8.5 mg/dL Low 8.6-10.4 [facility] Comment on above: Performed By: #### L ACDS, TROPI, PRCAL, MYCM #### [facility] [employer] [address] [place] [address] 54583 Chloride molar conc 103 mmol/L Normal 98-107 [facility] Comment on above: Performed By: #### L ACDS, TROPI, PRCAL, MYCM #### [facility] [employer] [address] [place] [address] 81208 CO2 molar conc 24 mmol/L Normal 20-31 [facility] Comment on above: Performed By: #### L ACDS, TROPI, PRCAL, MYCM #### [facility] [employer] [address] [place] [address] 65319 Creatinine mass conc 0.88 mg/dL Normal 0.50-0.90 [facility] Comment on above: Performed By: #### L ACDS, TROPI, PRCAL, MYCM #### [facility] [employer] [address] [place] [address] 85172 GFR, Amer >60 Normal >60 [facility] Comment on above: Performed By: #### L ACDS, TROPI, PRCAL, MYCM #### [facility] [employer] [address] [place] [address] 74040 GFR,non Amer >60 Normal >60 [facility] Comment on above: Performed By: #### L ACDS, TROPI, PRCAL, MYCM #### [facility] [employer] [address] [place] [address] 28223 Glucose mass conc 104 mg/dL High 70-99 [facility] Comment on above: Performed By: #### L ACDS, TROPI, PRCAL, MYCM #### [facility] [employer] [address] [place] [address] 90039 Potassium molar conc 4.0 mmol/L Normal 3.7-5.3 [facility] Comment on above: Performed By: #### L ACDS, TROPI, PRCAL, MYCM #### [facility] [address] [place] [address] 79963 Protein mass conc 6.3 g/dL Low 6.4-8.3 [facility] Comment on above: Performed By: #### L ACDS, TROPI, PRCAL, MYCM #### [facility] [employer] [address] [place] [address] 40768 Sodium molar conc 137 mmol/L Normal 135-144 [facility] Comment on above: Performed By: #### L ACDS, TROPI, PRCAL, MYCM #### [facility] [employer] [address] [place] [address] 13240 Urea nitrogen mass conc 16 mg/dL Normal 6-20 [facility] Comment on above: Performed By: #### L ACDS, TROPI, PRCAL, MYCM #### [facility] [employer] [address] [place] [address] 86323 BUN/CRE Ratio NOT REPORTED Normal 9-20 [facility] Comment on above: Performed By: #### L ACDS, TROPI, PRCAL, MYCM #### [facility] [employer] [address] [place] [address] 50896 Staging: NOT REPORTED Normal [facility] Comment on above: Performed By: #### L ACDS, TROPI, PRCAL, MYCM #### [facility] [employer] [address] [place] [address] 32685 Cult, Bloodon 11-15-2018 Cult, Blood Specimen Description [...] Trimethoprim/Sulfa <=10 SUSCEPTIBLE Vancomycin 1 SUSCEPTIBLE Normal [facility] Comment on above: Performed By: #### L ACDS, TROPI, PRCAL, MYCM #### [facility] [employer] [facility] [place], [place] [id number] MRI CERVICAL SPINE W WO CONT RASTon [...] Bo Rodrigues MD 08/19/18 Final result Normal [facility] MRI LUMBAR SPINE W WO [...] Bo Rodrigues MD 08/19/18 Final result Normal [facility] MRI THORACIC SPINE W WO [...] Bo Rodrigues MD 08/19/18 Final result Normal [facility] Magnesiumon 08-19-2018 Magnesium mass conc 2.3 mg/dL Normal 1.6-2.6 [facility] Comment on above: Performed By: #### L ACDS, TROPI, PRCAL, MYCM #### [facility] [employer] [facility] [place] [address] Procalcitoninon 08-19-2018 Protein mass conc 0.57 ng/mL High <0.09 [facility] Comment on above: Result Comment: Suspected Sepsis: [...] entered into the Change in Procalcitonin Calculator (www.ncnwvn-ovu-stjurbuqco.com) to determine the patient's Mortality Risk Prognosis Performed By: #### L ACDS, TROPI, PRCAL, MYCM #### [place] [address] CBC with Diffon 08-18-2018 Abs. Basophil <0.03 Normal 0.00-0.20 [facility] Comment on above: Performed By: #### L ACDS, TROPI, PRCAL, MYCM #### [place] [address] Abs.Imm.Granulocyte 0.28 k/uL Normal 0.00-0.30 [facility] Comment on above: Performed By: #### L ACDS, TROPI, PRCAL, MYCM #### [place] [address] Abs.Neutrophil (Seg) 3.23 k/uL Normal 1.50-8.10 [facility] Comment on above: Performed By: #### L ACDS, TROPI, PRCAL, MYCM #### [address] [address] Basophils/100 WBC (Bld) 0 % Normal 0-2 [facility] Comment on above: Performed By: #### L ACDS, TROPI, PRCAL, MYCM #### [address] [address] Eosinophils #/vol (Bld) 0.15 10*3/uL Normal 0.00-0.44 [facility] Comment on above: Performed By: #### L ACDS, TROPI, PRCAL, MYCM #### [address] [address] Eosinophils/100 WBC (Bld) 3 % Normal 1-4 [facility] Comment on above: Performed By: #### L ACDS, TROPI, PRCAL, MYCM #### [address] [address] Erythrocyte distribution width Ratio (RBC) 14.7 % High 11.8-14.4 [facility] Comment on above: Performed By: #### L ACDS, TROPI, PRCAL, MYCM #### [address] [address] Hematocrit Volume Fraction (Bld) 32.7 % Low 36.3-47.1 [facility] Comment on above: Performed By: #### L ACDS, TROPI, PRCAL, MYCM #### [address] [address] Hemoglobin mass conc (Bld) 10.1 g/dL Low 11.9-15.1 [facility] Comment on above: Performed By: #### L ACDS, TROPI, PRCAL, MYCM #### [address] [address] Immature granulocytes #/vol (Bld) 5 % High 0 [facility] Comment on above: Performed By: #### L ACDS, TROPI, PRCAL, MYCM #### [address] [address] Lymphocytes #/vol (Bld) 1.58 10*3/uL Normal 1.10-3.70 [facility] Comment on above: Performed By: #### L ACDS, TROPI, PRCAL, MYCM #### [address] [address]471 Lymphocytes/100 WBC (Bld) 28 % Normal 24-43 [facility] Comment on above: Performed By: #### L ACDS, TROPI, PRCAL, MYCM #### [address] [address] MCH Entitic mass (RBC) 28.2 pg Normal 25.2-33.5 [facility] Comment on above: Performed By: #### L ACDS, TROPI, PRCAL, MYCM #### [address] [address] MCHC mass conc (RBC) 30.9 g/dL Normal 28.4-34.8 [facility] Comment on above: Performed By: #### L ACDS, TROPI, PRCAL, MYCM #### [address] [address]656 MCV Entitic volume (RBC) 91.3 fL Normal 82.6-102.9 [facility] Comment on above: Performed By: #### L ACDS, TROPI, PRCAL, MYCM #### [address] [address] Monocytes #/vol (Bld) 0.47 10*3/uL Normal 0.10-1.20 [facility] Comment on above: Performed By: #### L ACDS, TROPI, PRCAL, MYCM #### [address] [address] Monocytes/100 WBC (Bld) 8 % Normal 3-12 [facility] Comment on above: Performed By: #### L ACDS, TROPI, PRCAL, MYCM #### [address] [address] Neutrophil (Seg) 56 % Normal 36-65 [facility] Comment on above: Performed By: #### L ACDS, TROPI, PRCAL, MYCM #### [address] [address] NRBC Automated 0.0 per 100 WBC Normal 0.0 [facility] Comment on above: Performed By: #### L ACDS, TROPI, PRCAL, MYCM #### [address] [address] Platelet mean volume Entitic volume (Bld) 11.4 fL Normal 8.1-13.5 [facility] Comment on above: Performed By: #### L ACDS, TROPI, PRCAL, MYCM #### [address] [address] Platelets #/vol (Bld) 153 10*3/uL Normal 138-453 [facility] Comment on above: Performed By: #### L ACDS, TROPI, PRCAL, MYCM #### [address] [address] RBC #/vol (Bld) 3.58 10*6/uL Low 3.95-5.11 [facility] Comment on above: Performed By: #### L ACDS, TROPI, PRCAL, MYCM #### [address] [address] RBC morphology finding Nom (Bld) ANISOCYTOSIS PRESENT Normal [facility] Comment on above: Performed By: #### L ACDS, TROPI, PRCAL, MYCM #### [address] [address] WBC #/vol (Bld) 5.7 10*3/uL Normal 3.5-11.3 [facility] Comment on above: Performed By: #### L ACDS, TROPI, PRCAL, MYCM #### [facility] [employer] [address] [place] [address] 72982 Auto Diff Performed NOT REPORTED Normal [facility] Comment on above: Performed By: #### L ACDS, TROPI, PRCAL, MYCM #### [address] [address] Platelets #/vol (Bld) NOT REPORTED Normal [facility] Comment on above: Performed By: #### L ACDS, TROPI, PRCAL, MYCM #### [facility] [place] [address] WBC Morphology NOT REPORTED Normal [facility] Comment on above: Performed By: #### L ACDS, TROPI, PRCAL, MYCM #### [facility] [employer] [address] [place] [address] 07682 Comp Metabolic Pr/rfx MGon 1 10-18-2017 (cont.) Normal [facility] Comment on above: Result Comment: Aver age GFR for 30-39 years old: 107 mL/min/1.73sq m Chronic Kidney Disease: <60 mL/min/1.73sq m Kidney failure: <15 mL/min/1.73sq m eGFR calculated using average adult body mass. Additional eGFR calculator available at: http://www.[employer]/multiple_crcl_2012.htm Performed By: #### L ACDS, TROPI, PRCAL, MYCM #### [facility] [employer] [address] [place] [address] 28202 Albumin mass conc 2.7 g/dL Low 3.5-5.2 [facility] Comment on above: Performed By: #### L ACDS, TROPI, PRCAL, MYCM #### [facility] [employer] [address] [place] [address] 43704 Albumin/Globulin mass ratio 0.8 {ratio} Low 1.0-2.5 [facility] Comment on above: Performed By: #### L ACDS, TROPI, PRCAL, MYCM #### [facility] [employer] [address] [place] [address] 51250 Alkaline Phos 82 U/L Normal 35-104 [facility] Comment on above: Performed By: #### L ACDS, TROPI, PRCAL, MYCM #### [facility] [employer] [address] [place] [address] 56218 ALT enzyme act/vol 19 U/L Normal 5-33 [facility] Comment on above: Performed By: #### L ACDS, TROPI, PRCAL, MYCM #### [facility] [employer] [address] [place] [address] 66325 Anion gap molar conc 8 mmol/L Low 9-17 [facility] Comment on above: Performed By: #### L ACDS, TROPI, PRCAL, MYCM #### [facility] [employer] [address] [place] [address] 83613 AST enzyme act/vol 17 U/L Normal <32 [facility] Comment on above: Performed By: #### L ACDS, TROPI, PRCAL, MYCM #### [facility] [employer] [address] [place] [address] 08973 Bilirubin Ql (U) 0.24 mg/dL Low 0.3-1.2 [facility] Comment on above: Performed By: #### L ACDS, TROPI, PRCAL, MYCM #### [facility] [employer] [address] [place] [address] 25034 Calcium mass conc 8.2 mg/dL Low 8.6-10.4 [facility] Comment on above: Performed By: #### L ACDS, TROPI, PRCAL, MYCM #### [facility] [employer] [address] [place] [address] 66703 Chloride molar conc 103 mmol/L Normal 98-107 [facility] Comment on above: Performed By: #### L ACDS, TROPI, PRCAL, MYCM #### [facility] [employer] [address] [place] [address] 62493 CO2 molar conc 25 mmol/L Normal 20-31 [facility] Comment on above: Performed By: #### L ACDS, TROPI, PRCAL, MYCM #### [facility] [employer] [address] [place] [address] 12560 Creatinine mass conc 0.94 mg/dL High 0.50-0.90 [facility] Comment on above: Performed By: #### L ACDS, TROPI, PRCAL, MYCM #### [facility] [employer] [address] [place] [address] 97787 GFR, Amer >60 Normal >60 [facility] Comment on above: Performed By: #### L ACDS, TROPI, PRCAL, MYCM #### [facility] [employer] [address] [place] [address] 02301 GFR,non Amer >60 Normal >60 [facility] Comment on above: Performed By: #### L ACDS, TROPI, PRCAL, MYCM #### [facility] [employer] [address] [place] [address] 04813 Glucose mass conc 107 mg/dL High 70-99 [facility] Comment on above: Performed By: #### L ACDS, TROPI, PRCAL, MYCM #### [facility] [address] [place] [address] 99885 Potassium molar conc 4.1 mmol/L Normal 3.7-5.3 [facility] Comment on above: Performed By: #### L ACDS, TROPI, PRCAL, MYCM #### [facility] [address] [place] [address] 22961 Protein mass conc 6.2 g/dL Low 6.4-8.3 [facility] Comment on above: Performed By: #### L ACDS, TROPI, PRCAL, MYCM #### [facility] [address] [place] [address] 48428 Sodium molar conc 136 mmol/L Normal 135-144 [facility] Comment on above: Performed By: #### L ACDS, TROPI, PRCAL, MYCM #### [facility] [address] [place] [address] 33637 Urea nitrogen mass conc 14 mg/dL Normal 6-20 [facility] Comment on above: Performed By: #### L ACDS, TROPI, PRCAL, MYCM #### [employer] [address] [place] [address] 39644 BUN/CRE Ratio NOT REPORTED Normal 06-24 [facility] Comment on above: Performed By: #### L ACDS, TROPI, PRCAL, MYCM #### [employer] [address] [place] [address] 24216 Staging: NOT REPORTED Normal [facility] Comment on above: Performed By: #### L ACDS, TROPI, PRCAL, MYCM #### [employer] [address] [place] [address] 00300 Magnesiumon 08-18-2018 Magnesium mass conc 2.3 mg/dL Normal 1.6-2.6 [facility] Comment on above: Performed By: #### L ACDS, TROPI, PRCAL, MYCM #### [employer] [address] [place] [address] 21570 Vancomycin Troughon 08-18-20 18 Vancomycin Trough 14.7 ug/mL Normal 10.0-20.0 [facility] Comment on above: Result Comment: High er trough serum vancomycin concentrations of 15-20 ug/mL are recommended for complicated infections such as bacteremia, endocarditis, osteomyelitis, meningitis, and hospital acquired pneumonia. Performed By: #### L ACDS, TROPI, PRCAL, MYCM #### [employer] [address] [place] [address] 81780 Date last dose, NOT REPORTED Normal [facility] Comment on above: Performed By: #### L ACDS, TROPI, PRCAL, MYCM #### [employer] [address] [place] [address] 21383 Dose amount, NOT REPORTED Normal [facility] Comment on above: Performed By: #### L ACDS, TROPI, PRCAL, MYCM #### [facility] [address] [place] [address] 54595 Time last dose, NOT REPORTED Normal [facility] Comment on above: Performed By: #### L ACDS, TROPI, PRCAL, MYCM #### [facility] [employer] [address] [place] [address] 17174 C-Reactive Proteinon 018 CRP mass conc 188.1 mg/L High 0.0-5.0 [facility] Comment on above: Performed By: #### L ACDS, TROPI, PRCAL, MYCM #### [facility] [employer] [address] [place] [address] 38225 CBC with Diffon 08-17-2018 Abs. Basophil 0.00 k/uL Normal 0.0-0.2 [facility] Comment on above: Performed By: #### L ACDS, TROPI, PRCAL, MYCM #### [facility] [employer] [address] [place] [address] 48352 Abs.Imm.Granulocyte 0.13 k/uL Normal 0.00-0.30 [facility] Comment on above: Performed By: #### L ACDS, TROPI, PRCAL, MYCM #### [facility] [employer] [address] [place] [address] 20578 Abs.Neutrophil (Seg) 4.35 k/uL Normal 1.8-7.7 [facility] Comment on above: Performed By: #### L ACDS, TROPI, PRCAL, MYCM #### [facility] [employer] [address] [place] [address] 72764 Basophils/100 WBC (Bld) 0 % Normal 0-2 [facility] Comment on above: Performed By: #### L ACDS, TROPI, PRCAL, MYCM #### [facility] [employer] [address] [place] [address] Eosinophils #/vol (Bld) 0.06 10*3/uL Normal 0.0-0.4 [facility] Comment on above: Performed By: #### L ACDS, TROPI, PRCAL, MYCM #### [address] [address] Eosinophils/100 WBC (Bld) 1 % Normal 1-4 [facility] Comment on above: Performed By: #### L ACDS, TROPI, PRCAL, MYCM #### [address] [address] Immature granulocytes #/vol (Bld) 2 % High 0 [facility] Comment on above: Performed By: #### L ACDS, TROPI, PRCAL, MYCM #### [address] [address] Lymphocytes #/vol (Bld) 1.32 10*3/uL Normal 1.0-4.8 [facility] Comment on above: Performed By: #### L ACDS, TROPI, PRCAL, MYCM #### [address] [address] Lymphocytes/100 WBC (Bld) 21 % Low 24-44 [facility] Comment on above: Performed By: #### L ACDS, TROPI, PRCAL, MYCM #### [address] [address] Monocytes #/vol (Bld) 0.44 10*3/uL Normal 0.1-0.8 [facility] Comment on above: Performed By: #### L ACDS, TROPI, PRCAL, MYCM #### [address] [address] Monocytes/100 WBC (Bld) 7 % Normal 1-7 [facility] Comment on above: Performed By: #### L ACDS, TROPI, PRCAL, MYCM #### [address] [address] Morphology Interp Rehan (Bld) ANISOCYTOSIS PRESENT Normal [facility] Comment on above: Result Comment: INCR EASED BANDS PRESENT 1+ TEARDROPS Performed By: #### L ACDS, TROPI, PRCAL, MYCM #### [address] [address] Neutrophil (Seg) 69 % High 36-66 [facility] Comment on above: Performed By: #### L ACDS, TROPI, PRCAL, MYCM #### [address] [address] Erythrocyte distribution width Ratio (RBC) 14.8 % High 11.8-14.4 [facility] Comment on above: Performed By: #### L ACDS, TROPI, PRCAL, MYCM #### [address] [address] Hematocrit Volume Fraction (Bld) 33.3 % Low 36.3-47.1 [facility] Comment on above: Performed By: #### L ACDS, TROPI, PRCAL, MYCM #### [facility] [employer] [address] [place] [address] 63040 Hemoglobin mass conc (Bld) 10.2 g/dL Low 11.9-15.1 [facility] Comment on above: Performed By: #### L ACDS, TROPI, PRCAL, MYCM #### [facility] [employer] [address] [place] [address] 56350 MCH Entitic mass (RBC) 28.3 pg Normal 25.2-33.5 [facility] Comment on above: Performed By: #### L ACDS, TROPI, PRCAL, MYCM #### [facility] [employer] [address] [place] [address] 28877 MCHC mass conc (RBC) 30.6 g/dL Normal 28.4-34.8 [facility] Comment on above: Performed By: #### L ACDS, TROPI, PRCAL, MYCM #### [address] [address] MCV Entitic volume (RBC) 92.2 fL Normal 82.6-102.9 [facility] Comment on above: Performed By: #### L ACDS, TROPI, PRCAL, MYCM #### [address] [address] NRBC Automated 0.0 per 100 WBC Normal 0.0 [facility] Comment on above: Performed By: #### L ACDS, TROPI, PRCAL, MYCM #### [address] [address] Platelet mean volume Entitic volume (Bld) 11.5 fL Normal 8.1-13.5 [facility] Comment on above: Performed By: #### L ACDS, TROPI, PRCAL, MYCM #### [address] [address] Platelets #/vol (Bld) 149 10*3/uL Normal 138-453 [facility] Comment on above: Performed By: #### L ACDS, TROPI, PRCAL, MYCM #### [address] [address] RBC #/vol (Bld) 3.61 10*6/uL Low 3.95-5.11 [facility] Comment on above: Performed By: #### L ACDS, TROPI, PRCAL, MYCM #### [address] [address] WBC #/vol (Bld) 6.3 10*3/uL Normal 3.5-11.3 [facility] Comment on above: Performed By: #### L ACDS, TROPI, PRCAL, MYCM #### [facility] [employer] [facility] [place] [address] Auto Diff Performed NOT REPORTED Normal [facility] Comment on above: Performed By: #### L ACDS, TROPI, PRCAL, MYCM #### [facility] [employer] [address] [place] [address] 06582 Platelets #/vol (Bld) NOT REPORTED Normal [facility] Comment on above: Performed By: #### L ACDS, TROPI, PRCAL, MYCM #### [facility] [employer] [address] [place] [address] 79444 RBC morphology finding Nom (Bld) NOT REPORTED Normal [facility] Comment on above: Performed By: #### L ACDS, TROPI, PRCAL, MYCM #### [facility] [employer] [address] [place] [address] 77273 WBC Morphology NOT REPORTED Normal [facility] Comment on above: Performed By: #### L ACDS, TROPI, PRCAL, MYCM #### [facility] [employer] [address] [place] [address] 73665 Comp Metabolic Pr/rfx MGon 1 10-17-2017 (cont.) Normal [facility] Comment on above: Result Comment: Aver age GFR for 30-39 years old: 107 mL/min/1.73sq m Chronic Kidney Disease: <60 mL/min/1.73sq m Kidney failure: <15 mL/min/1.73sq m eGFR calculated using average adult body mass. Additional eGFR calculator available at: http://www.[employer].com/multiple_crcl_2012.htm Performed By: #### L ACDS, TROPI, PRCAL, MYCM #### [facility] [employer] [address] [place] [address] 74424 Albumin mass conc 2.4 g/dL Low 3.5-5.2 [facility] Comment on above: Performed By: #### L ACDS, TROPI, PRCAL, MYCM #### [facility] [employer] [address] [place] [address] 99449 Albumin/Globulin mass ratio 0.7 {ratio} Low 1.0-2.5 [facility] Comment on above: Performed By: #### L ACDS, TROPI, PRCAL, MYCM #### [facility] [employer] [address] [place] [address] 58523 Alkaline Phos 76 U/L Normal 35-104 [facility] Comment on above: Performed By: #### L ACDS, TROPI, PRCAL, MYCM #### [facility] [employer] [address] [place] [address] 92840 ALT enzyme act/vol 25 U/L Normal 5-33 [facility] Comment on above: Performed By: #### L ACDS, TROPI, PRCAL, MYCM #### [facility] [employer] [address] [place] [address] 17614 Anion gap molar conc 8 mmol/L Low 9-17 [facility] Comment on above: Performed By: #### L ACDS, TROPI, PRCAL, MYCM #### [facility] [employer] [address] [place] [address] 52076 AST enzyme act/vol 26 U/L Normal <32 [facility] Comment on above: Performed By: #### L ACDS, TROPI, PRCAL, MYCM #### [facility] [employer] [address] [place] [address] 28086 Bilirubin Ql (U) 0.34 mg/dL Normal 0.3-1.2 [facility] Comment on above: Performed By: #### L ACDS, TROPI, PRCAL, MYCM #### [facility] [employer] [address] [place] [address] 30094 Calcium mass conc 7.8 mg/dL Low 8.6-10.4 [facility] Comment on above: Performed By: #### L ACDS, TROPI, PRCAL, MYCM #### [facility] [employer] [address] [place] [address] 04629 Chloride molar conc 99 mmol/L Normal 98-107 [facility] Comment on above: Performed By: #### L ACDS, TROPI, PRCAL, MYCM #### [facility] [employer] [address] [place] [address] 00841 CO2 molar conc 23 mmol/L Normal 20-31 [facility] Comment on above: Performed By: #### L ACDS, TROPI, PRCAL, MYCM #### [facility] [employer] [address] [place] [address] 66843 Creatinine mass conc 1.04 mg/dL High 0.50-0.90 [facility] Comment on above: Performed By: #### L ACDS, TROPI, PRCAL, MYCM #### [facility] [employer] [address] [place] [address] 89787 GFR, Amer >60 Normal >60 [facility] Comment on above: Performed By: #### L ACDS, TROPI, PRCAL, MYCM #### [facility] [employer] [address] [place] [address] 89605 GFR,non Amer 59 mL/min Low >60 [facility] Comment on above: Performed By: #### L ACDS, TROPI, PRCAL, MYCM #### [facility] [employer] [address] [place] [address] 44406 Glucose mass conc 109 mg/dL High 70-99 [facility] Comment on above: Performed By: #### L ACDS, TROPI, PRCAL, MYCM #### [facility] [employer] [address] [place] [address] 54015 Potassium molar conc 3.8 mmol/L Normal 3.7-5.3 [facility] Comment on above: Performed By: #### L ACDS, TROPI, PRCAL, MYCM #### [facility] [address] [place] [address] 96386 Protein mass conc 5.8 g/dL Low 6.4-8.3 [facility] Comment on above: Performed By: #### L ACDS, TROPI, PRCAL, MYCM #### [facility] [address] [place] [address] 14700 Sodium molar conc 130 mmol/L Low 135-144 [facility] Comment on above: Performed By: #### L ACDS, TROPI, PRCAL, MYCM #### [facility] [address] [place] [address] 01065 Urea nitrogen mass conc 15 mg/dL Normal 6-20 [facility] Comment on above: Performed By: #### L ACDS, TROPI, PRCAL, MYCM #### [facility] [address] [place] [address] 63245 BUN/CRE Ratio NOT REPORTED Normal - [facility] Comment on above: Performed By: #### L ACDS, TROPI, PRCAL, MYCM #### [facility] [address] [place] [address] Staging: NOT REPORTED Normal [facility] Comment on above: Performed By: #### L ACDS, TROPI, PRCAL, MYCM #### [facility] [address] [place] [address] Magnesiumon 08-17-2018 Magnesium mass conc 2.2 mg/dL Normal 1.6-2.6 [facility] Comment on above: Performed By: #### L ACDS, TROPI, PRCAL, MYCM #### [facility] [address] [place] [address]39 Procalcitoninon 08-17-2018 Protein mass conc 1.48 ng/mL High <0.09 [facility] Comment on above: Result Comment: Suspected Sepsis: [...] entered into the Change in Procalcitonin Calculator ([email or web address]-[email or web address]) to determine the patient's Mortality Risk Prognosis Performed By: #### L ACDS, TROPI, PRCAL, MYCM #### [employer] [address] [place] [address]368 Sedimentation Rateon 08-17- 018 Sedimentation Rate 97 mm High 0-20 [facility] Comment on above: Performed By: #### L ACDS, TROPI, PRCAL, MYCM #### [employer] [address] [place] [address]18 CBC with Diffon 08-16-2018 Abs. Basophil 0.00 k/uL Normal 0.00-0.20 [facility] Comment on above: Performed By: #### L ACDS, TROPI, PRCAL, MYCM #### [employer] [address] [place] [address]46 Abs.Imm.Granulocyte 0.11 k/uL Normal 0.00-0.30 [facility] Comment on above: Performed By: #### L ACDS, TROPI, PRCAL, MYCM #### [employer] [address] [place] [address]386 Abs.Neutrophil (Seg) 4.60 k/uL Normal 1.50-8.10 [facility] Comment on above: Performed By: #### L ACDS, TROPI, PRCAL, MYCM #### [address] [address] Basophils/100 WBC (Bld) 0 % Normal 0-2 [facility] Comment on above: Performed By: #### L ACDS, TROPI, PRCAL, MYCM #### [address] [address] Eosinophils #/vol (Bld) 0.00 10*3/uL Normal 0.00-0.44 [facility] Comment on above: Performed By: #### L ACDS, TROPI, PRCAL, MYCM #### [address] [address] Eosinophils/100 WBC (Bld) 0 % Low 1-4 [facility] Comment on above: Performed By: #### L ACDS, TROPI, PRCAL, MYCM #### [address] [address] Immature granulocytes #/vol (Bld) 2 % High 0 [facility] Comment on above: Performed By: #### L ACDS, TROPI, PRCAL, MYCM #### [address] [address] Lymphocytes #/vol (Bld) 0.67 10*3/uL Low 1.10-3.70 [facility] Comment on above: Performed By: #### L ACDS, TROPI, PRCAL, MYCM #### [address] [address] Lymphocytes/100 WBC (Bld) 12 % Low 24-43 [facility] Comment on above: Performed By: #### L ACDS, TROPI, PRCAL, MYCM #### [address] [address] Monocytes #/vol (Bld) 0.22 10*3/uL Normal 0.10-1.20 [facility] Comment on above: Performed By: #### L ACDS, TROPI, PRCAL, MYCM #### [facility] [employer] [address] [place] [address] 73734 Monocytes/100 WBC (Bld) 4 % Normal 3-12 [facility] Comment on above: Performed By: #### L ACDS, TROPI, PRCAL, MYCM #### [facility] [employer] [address] [place] [address]798 Morphology Interp Rehan (Bld) ANISOCYTOSIS PRESENT Normal [facility] Comment on above: Result Comment: INCR EASED BANDS PRESENT 1+ TEARDROPS Performed By: #### L ACDS, TROPI, PRCAL, MYCM #### [facility] [employer] [address] [place] [address]06 Neutrophil (Seg) 82 % High 36-65 [facility] Comment on above: Performed By: #### L ACDS, TROPI, PRCAL, MYCM #### [facility] [employer] [address] [place] [address]908 Erythrocyte distribution width Ratio (RBC) 15.1 % High 11.8-14.4 [facility] Comment on above: Performed By: #### L ACDS, TROPI, PRCAL, MYCM #### [facility] [address] [place] [address]682 Hematocrit Volume Fraction (Bld) 34.1 % Low 36.3-47.1 [facility] Comment on above: Performed By: #### L ACDS, TROPI, PRCAL, MYCM #### [facility] [employer] [address] [place] [address]505 Hemoglobin mass conc (Bld) 10.0 g/dL Low 11.9-15.1 [facility] Comment on above: Performed By: #### L ACDS, TROPI, PRCAL, MYCM #### [address] [address]756 MCH Entitic mass (RBC) 28.7 pg Normal 25.2-33.5 [facility] Comment on above: Performed By: #### L ACDS, TROPI, PRCAL, MYCM #### [address] [address] MCHC mass conc (RBC) 29.3 g/dL Normal 28.4-34.8 [facility] Comment on above: Performed By: #### L ACDS, TROPI, PRCAL, MYCM #### [address] [address] MCV Entitic volume (RBC) 98.0 fL Normal 82.6-102.9 [facility] Comment on above: Performed By: #### L ACDS, TROPI, PRCAL, MYCM #### [address] [address] NRBC Automated 0.0 per 100 WBC Normal 0.0 [facility] Comment on above: Performed By: #### L ACDS, TROPI, PRCAL, MYCM #### [address] [address] Platelet mean volume Entitic volume (Bld) 11.1 fL Normal 8.1-13.5 [facility] Comment on above: Performed By: #### L ACDS, TROPI, PRCAL, MYCM #### [address] [address] Platelets #/vol (Bld) 119 10*3/uL Low 138-453 [facility] Comment on above: Performed By: #### L ACDS, TROPI, PRCAL, MYCM #### [address] [place] [address] RBC #/vol (Bld) 3.48 10*6/uL Low 3.95-5.11 [facility] Comment on above: Performed By: #### L ACDS, TROPI, PRCAL, MYCM #### [address] [address] WBC #/vol (Bld) 5.6 10*3/uL Normal 3.5-11.3 [facility] Comment on above: Performed By: #### L ACDS, TROPI, PRCAL, MYCM #### [address] [address] Auto Diff Performed NOT REPORTED Normal [facility] Comment on above: Performed By: #### L ACDS, TROPI, PRCAL, MYCM #### [facility] [employer] [address] [place] [address] 70433 Platelets #/vol (Bld) NOT REPORTED Normal [facility] Comment on above: Performed By: #### L ACDS, TROPI, PRCAL, MYCM #### [facility] [employer] [address] [place] [address] 77379 RBC morphology finding Nom (Bld) NOT REPORTED Normal [facility] Comment on above: Performed By: #### L ACDS, TROPI, PRCAL, MYCM #### [facility] [employer] [address] [place] [address] 02836 WBC Morphology NOT REPORTED Normal [facility] Comment on above: Performed By: #### L ACDS, TROPI, PRCAL, MYCM #### [facility] [employer] [address] [place] [address] HEAD WO CONTRASTon 2017 CT HEAD [...] Erica Angeles MD 08/16/18 Final result Normal [facility] Calcium, Ionicon 08-16-2018 Calcium mass conc 0.99 mmol/L Low 1.13-1.33 [facility] Comment on above: Performed By: #### L ACDS, TROPI, PRCAL, MYCM #### [facility] [employer] [address] [place] [address] [id number] Comp Metabolic Pr/rfx MGon 1 10-16-2017 (cont.) Normal [facility] Comment on above: Result Comment: Aver age GFR for 30-39 years old: 107 mL/min/1.73sq m Chronic Kidney Disease: <60 mL/min/1.73sq m Kidney failure: <15 mL/min/1.73sq m eGFR calculated using average adult body mass. Additional eGFR calculator available at: http://www.[employer].com/multiple_crcl_2012.htm Performed By: #### P T, CMPX, MG, CDP #### [facility] [employer] [address] [place] [address] [id number] Albumin mass conc 2.3 g/dL Low 3.5-5.2 [facility] Comment on above: Performed By: #### P T, CMPX, MG, CDP #### [facility] [employer] [address] [place] [address] 87708 Albumin/Globulin mass ratio 0.7 {ratio} Low 1.0-2.5 [facility] Comment on above: Performed By: #### P T, CMPX, MG, CDP #### [facility] [address] [place] [address] 63884 Alkaline Phos 67 U/L Normal 35-104 [facility] Comment on above: Performed By: #### P T, CMPX, MG, CDP #### [facility] [employer] [address] [place] [address] 55645 ALT enzyme act/vol 33 U/L Normal 5-33 [facility] Comment on above: Performed By: #### P T, CMPX, MG, CDP #### [facility] [employer] [address] [place] [address] 54714 Anion gap molar conc 11 mmol/L Normal 9-17 [facility] Comment on above: Performed By: #### P T, CMPX, MG, CDP #### [facility] [employer] [address] [place] [address] 12140 AST enzyme act/vol 41 U/L High <32 [facility] Comment on above: Performed By: #### P T, CMPX, MG, CDP #### [facility] [employer] [address] [place] [address] 25088 Bilirubin Ql (U) 0.40 mg/dL Normal 0.3-1.2 [facility] Comment on above: Performed By: #### P T, CMPX, MG, CDP #### [facility] [employer] [address] [place] [address] 05137 Calcium mass conc 7.3 mg/dL Low 8.6-10.4 [facility] Comment on above: Performed By: #### P T, CMPX, MG, CDP #### [facility] [employer] [address] [place] [address] 06519 Chloride molar conc 105 mmol/L Normal 98-107 [facility] Comment on above: Performed By: #### P T, CMPX, MG, CDP #### [facility] [employer] [address] [place] [address] 88085 CO2 molar conc 18 mmol/L Low 20-31 [facility] Comment on above: Performed By: #### P T, CMPX, MG, CDP #### [facility] [address] [place] [address] 62085 Creatinine mass conc 1.09 mg/dL High 0.50-0.90 [facility] Comment on above: Performed By: #### P T, CMPX, MG, CDP #### [facility] [address] [place] [address] 05893 GFR, Amer >60 Normal >60 [facility] Comment on above: Performed By: #### P T, CMPX, MG, CDP #### [facility] [address] [place] [address] 90710 GFR,non Amer 56 mL/min Low >60 [facility] Comment on above: Performed By: #### P T, CMPX, MG, CDP #### [facility] [employer] [address] [place] [address] 38741 Glucose mass conc 128 mg/dL High 70-99 [facility] Comment on above: Performed By: #### P T, CMPX, MG, CDP #### [facility] [employer] [address] [place] [address] 00952 Potassium molar conc 3.6 mmol/L Low 3.7-5.3 [facility] Comment on above: Performed By: #### P T, CMPX, MG, CDP #### [facility] [employer] [address] [place] [address] 00168 Protein mass conc 5.5 g/dL Low 6.4-8.3 [facility] Comment on above: Performed By: #### P T, CMPX, MG, CDP #### [facility] [employer] [address] [place] [address] 18389 Sodium molar conc 134 mmol/L Low 135-144 [facility] Comment on above: Performed By: #### P T, CMPX, MG, CDP #### [facility] [employer] [address] [place] [address] 31297 Urea nitrogen mass conc 17 mg/dL Normal -20 [facility] Comment on above: Performed By: #### P T, CMPX, MG, CDP #### [facility] [employer] [address] [place] [address] 88238 BUN/CRE Ratio NOT REPORTED Normal - [facility] Comment on above: Performed By: #### P T, CMPX, MG, CDP #### [facility] [employer] [address] [place] [address] 52703 Staging: NOT REPORTED Normal [facility] Comment on above: Performed By: #### P T, CMPX, MG, CDP #### [facility] [employer] [address] [place] [address] 41364 Lactic Acid,Whole Blon 08-16 Lactic Acid,Whole Bl 1.2 mmol/L Normal 0.7-2.1 [facility] Comment on above: Performed By: #### L ACDS, TROPI, PRCAL, MYCM #### [facility] [employer] [address] [place] [address] 19757 Lactic Acid,Whole Bl 1.2 mmol/L Normal 0.7-2.1 [facility] Comment on above: Performed By: #### L ACWB #### [facility] [employer] [address] [place] [address] 38996 Magnesiumon 08-16-2018 Magnesium mass conc 2.0 mg/dL Normal 1.6-2.6 [facility] Comment on above: Performed By: #### L ACDS, TROPI, PRCAL, MYCM #### [facility] [employer] [address] [place] [address] 54159 Mycoplasma Ab,IgMon 08-16-20 18 Mycoplasma Ab,IgM 0.22 Normal <0.91 [facility] Comment on above: Result Comment: Reference Range: <=0.90 Negative 0.91-1.09 Equivocal >=1.10 Positive Performed By: #### L ACDS, TROPI, PRCAL, MYCM #### [facility] [employer] [address] [place] [address] 37505 PTon 08-16-2018 INR Coag RelTime (PPP) 1.0 {INR} Normal [facility] Comment on above: Result Comment: Therapeutic Range: Moderate Anticoagulant Intensity: INR = 2.0-3.0 High Anticoagulant Intensity: INR = 2.5-3.5 Performed By: #### P T, CMPX, MG, CDP #### [facility] [employer] [address] [place] [address] 26333 Prothrombin time (PT) Coag time (PPP) 11.0 s Normal 9.0-12.0 [facility] Comment on above: Performed By: #### P T, CMPX, MG, CDP #### [facility] [employer] [address] [place] [address] 62739 Troponinon 08-16-2018 Troponin I.cardiac mass conc Normal [facility] Comment on [...] diagnosis. Performed By: #### T ROPI #### [address] [address] Troponin I.cardiac mass conc ng/mL Normal <0.03 [facility] Comment on above: Result Comment: Trop onin T results cannot be compared to Troponin-I results. Performed By: #### T CTI #### [address] [address] XR CHEST (2 VW)on 08-16-2018 [...] Noe Mitchell MD 08/16/18 Final result Normal [facility] Lactate, Sepsison 08-15-2018 Lactic Acid,Sep Wbld 3.5 mmol/L High 0.5-1.9 [facility] Comment on above: Performed By: #### L ACDS, TROPI, PRCAL, MYCM #### [address] 1973008 Lactic Acid, Sepsis NOT REPORTED Normal 0.5-1.9 [facility] Comment on above: Performed By: #### L ACDS, TROPI, PRCAL, MYCM #### [address] [id number] Legionella Ag, Uron 08-15-20 Legionella Ag, Ur [...] this test. Report Status FINAL 08/15/2018 Normal [facility] Comment on above: Performed By: #### U LAG #### [address] [id number] Procalcitoninon 08-15-2018 Protein mass conc 3.39 ng/mL High <0.09 [facility] Comment on above: Result Comment: Suspected Sepsis: [...] entered into the Change in Procalcitonin Calculator ([email or web address]) to determine the patient's Mortality Risk Prognosis Performed By: #### L ACDS, TROPI, PRCAL, MYCM #### [facility] [employer] [address] [place] [address] [id number] Strep pneum Ag,CSF/Uron 08-05 Strep pneum Ag,CSF/Ur Specimen Descripti on .CLEAN CATCH URINE Special Requests NOT REPORTED Direct Exam NEGATIVE: Strep pneumoniae antigen not detected Report Status FINAL 08/15/2018 Normal [facility] Comment on above: Performed By: #### S PAG #### [facility] [employer] [address] [place] [address] [id number] Troponinon 08-15-2018 Troponin I.cardiac mass conc ng/mL Normal <0.03 [facility] Comment on above: Result Comment: Trop onin T results cannot be compared to Troponin-I results. Performed By: #### L ACDS, TROPI, PRCAL, MYCM #### [facility] [address] [place] [address] [place] [id number] Troponin I.cardiac mass conc Normal [facility] Comment on [...] #### L ACDS, TROPI, PRCAL, MYCM #### [facility] [employer] [address] [place] [address] Urinalysison 11-18-2017 Bilirubin, Urine Negative Invalid Interpretation Code NEG;NEGATIVE [facility] Blood, Urine Moderate Abnormal NEG;NEGATIVE [facility] Interpretation and review of laboratory results Abnormal Invalid Interpretation Code [facility] Nitrite, Urine Negative Invalid Interpretation Code NEG;NEGATIVE [facility] Protein, Urine Negative Invalid Interpretation Code NEG;NEGATIVE mg/dL [facility] RBCs, Urine 1 /HPF Invalid Interpretation Code 0 - 5 [facility] Squamous Epithelial < 1 Invalid Interpretation Code 0 - 40 /HPF [facility] Urine, bacteria in sediment Rare Invalid Interpretation Code NS;RARE /HPF [facility] Urine, character Hazy Invalid Interpretation Code [facility] Urine, color Yellow Invalid Interpretation Code [facility] Urine, glucose presence Negative Invalid Interpretation Code NEG;NEGATIVE mg/dL [facility] Urine, ketones presence Negative Invalid Interpretation Code NEG;NEGATIVE mg/dL [facility] Urine, leukocyte esterase presence Small Abnormal Negative [facility] Urine, pH 6.0 [pH] Invalid Interpretation Code 4.5 - 8.0 [facility] Urine, specific gravity 1.014 1 Invalid Interpretation Code 1.003 - 1.029 [facility] Urobilinogen, Urine < 2.0 Invalid Interpretation Code <2 mg/dL [facility] WBCs, Urine 6 /HPF High 0 - 5 [facility] CBC and Differentialon 11-17 Basophils 0.7 % Invalid Interpretation Code [facility] Basophils 0.1 K/mcL Invalid Interpretation Code 0 - 0.2 [facility] Eosinophils 0.2 K/mcL Invalid Interpretation Code 0 - 0.5 [facility] Erythrocytes (RBC) 3.97 M/mcL Invalid Interpretation Code 3.7 - 5.0 [facility] Hematocrit (HCT) 35.7 % Invalid Interpretation Code 34.4 - 44.8 % [facility] Hemoglobin (HGB) 12.2 g/dL Invalid Interpretation Code 11.6 - 15.4 g/dL [facility] Interpretation and review of laboratory results Abnormal Invalid Interpretation Code [facility] Lymphocytes 2.1 K/mcL Invalid Interpretation Code 1.0 - 3.7 [facility] MCH 30.6 pg Invalid Interpretation Code 27.9 - 33.9 pg [facility] MCHC 34.0 g/dL Invalid Interpretation Code 33.1 - 35.1 g/dL [facility] MCV 89.8 fL Invalid Interpretation Code 82.6 - 98.9 [facility] Monocytes 0.6 K/mcL Invalid Interpretation Code 0.1 - 0.6 [facility] Neutrophils 6.6 K/mcL Invalid Interpretation Code 1.2 - 6.9 [facility] Platelet mean volume (PMV) 8.6 fL Invalid Interpretation Code 7.0 - 10.6 [facility] Platelets 196 K/mcL Invalid Interpretation Code 162 - 402 [facility] RDW-CA 15.0 % High 10 - 14.4 % [facility] Segmented Neut 69.6 % Invalid Interpretation Code [facility] T8 suppressor/100 cells 1.8 10*3/uL Invalid Interpretation Code [facility] T8 suppressor/100 cells 21.8 10*3/uL Invalid Interpretation Code [facility] T8 suppressor/100 cells 6.1 10*3/uL Invalid Interpretation Code [facility] WBC (Leukocytes) 9.5 K/mcL Invalid Interpretation Code 3.4 - 10.6 [facility] Comprehensive Metabolic Pane ananda 11-17-2017 Alanine aminotransferase (ALT) 18 U/L Invalid Interpretation Code 14 - 65 U/L [facility] Albumin 3.1 g/dL Low 3.2 - 5.2 g/dL [facility] Alkaline phosphatase (ALP) 78 U/L Invalid Interpretation Code 40 - 140 U/L [facility] Aspartate aminotransferase (AST) 7 U/L Invalid Interpretation Code 0 - 45 U/L [facility] Calcium 8.6 mg/dL Invalid Interpretation Code 8.4 - 10.2 mg/dL [facility] Chloride 106 mmol/L Invalid Interpretation Code 98 - 108 mmol/L [facility] CO2 27 mmol/L Invalid Interpretation Code 21 - 32 mmol/L [facility] Creatinine 1.13 mg/dL High 0.4 - 1.1 mg/dL [facility] eGFR (black) mL/min/{1.73_m2} Invalid Interpretation Code ml/min/1.73sq .m [facility] eGFR (non-black) 54 mL/min/{1.73_m2} Low >60 [facility] Glucose 113 mg/dL High 70 - 99 mg/dL [facility] Interpretation and review of laboratory results Abnormal Invalid Interpretation Code [facility] Potassium 3.7 mmol/L Invalid Interpretation Code 3.5 - 5.1 mmol/L [facility] Protein 6.8 g/dL Invalid Interpretation Code 6 - 8 g/dL [facility] Sodium 140 mmol/L Invalid Interpretation Code 135 - 145 mmol/L [facility] Urea nitrogen 17 mg/dL Invalid Interpretation Code 8 - 25 mg/dL [facility] Urine, bilirubin presence 0.4 mg/dL Invalid Interpretation Code 0.3 - 1.2 mg/dL [facility] Lipaseon 11-17-2017 Lipase 167 U/L Invalid Interpretation Code 73 - 393 U/L [facility] Vital Signs Date Time Vital Sign Value Performing Clinician Yovani mclaughlin 05-24-2025 11:47-0400 Body height 157.5 cm [employer] Work Phone: [facility] 05-24-2025 11:47-0400 Body mass index (BMI) [Ratio] 38.41 kg/m2 [employer] Work Phone: [facility] 05-24-2025 11:47-0400 Body weight 95.25 kg [employer] Work Phone: [facility] 05-24-2025 11:47-0400 Diastolic blood pressure 80 mm[Hg] Jennie Van CONSTITUTIONAL LAW PROFESSOR-LOGISTICIAN Work Phone: [facility] 05-24-2025 11:47-0400 Respiratory rate 18 /min Jennie Van CONSTITUTIONAL LAW PROFESSOR-LOGISTICIAN Work Phone: [facility] 05-24-2025 11:47-0400 SaO2% (BldA) [Mass fraction] 98 % Jennie Van CONSTITUTIONAL LAW PROFESSOR-LOGISTICIAN Work Phone: [facility] 05-24-2025 11:47-0400 Systolic blood pressure 120 mm[Hg] Jennie Van CONSTITUTIONAL LAW PROFESSOR-LOGISTICIAN Work Phone: [facility] 04-20-2025 12:32-0400 Body height 157.5 cm Christopher Bohach DPM Work Phone: [facility] 04-20-2025 12:32-0400 Body mass index (BMI) [Ratio] 38.41 kg/m2 Christopher Bohach DPM Work Phone: [facility] 04-20-2025 12:32-0400 Body weight 95.25 kg Christopher Bohach DPM Work Phone: [facility] 04-20-2025 12:32-0400 Diastolic blood pressure 89 mm[Hg] Christopher Bohach DPM Work Phone: [facility] 04-20-2025 12:32-0400 Heart rate 101 /min Christopher Bohach DPM Work Phone: [facility] 04-20-2025 12:32-0400 Systolic blood pressure 128 mm[Hg] Christopher Bohach DPM Work Phone: [facility] 04-06-2025 16:21-0400 Body height 157.5 cm Christopher Bohach DPM Work Phone: [facility] 04-06-2025 16:21-0400 Body mass index (BMI) [Ratio] 38.41 kg/m2 Christopher Bohach DPM Work Phone: [facility] 04-06-2025 16:21-0400 Body weight 95.25 kg Christpachecoer Bohach DPM Work Phone: [facility] 04-06-2025 16:21-0400 Diastolic blood pressure 80 mm[Hg] Robbin Bohach DPM Work Phone: [facility] 04-06-2025 16:21-0400 Heart rate 89 /min Robbin Bohach DPM Work Phone: [facility] 04-06-2025 16:21-0400 Systolic blood pressure 118 mm[Hg] Mundoer Bohach DPM Work Phone: [facility] 04-04-2025 23:15-0400 Diastolic blood pressure 70 mm[Hg] [facility]win [facility] 04-04-2025 23:15-0400 Heart rate 74 /min Severo Goodwin [facility] 04-04-2025 23:15-0400 Respiratory rate 16 /min Severo Goodwin [facility] 04-04-2025 23:15-0400 SaO2% (BldA) [Mass fraction] 97 % Severo Goodwin MD [facility] 04-04-2025 23:15-0400 Systolic blood pressure 122 mm[Hg] Severo Goodwin MD Work Phone: [employer] 04-04-2025 21:24-0400 Body height 152.4 cm Severo Goodwin MD Work Phone: [employer] 04-04-2025 21:24-0400 Body mass index (BMI) [Ratio] 41.99 kg/m2 Severo Goodwin MD Work Phone: [employer] [facility] 04-04-2025 21:24-0400 Body weight 97.52 kg Severo Goodwin MD Work Phone: [facility] 04-04-2025 21:15-0400 Body temperature 99 [degF] Severo Goodwin MD Work Phone: [facility] 03-14-2025 12:02-0400 Body height 157.5 cm Lynn Umair MELENDREZ Work Phone: [facility] 03-14-2025 12:02-0400 Body mass index (BMI) [Ratio] 38.41 kg/m2 Lynn Beadam MELENDREZ Work Phone: [facility] 03-14-2025 12:02-0400 Body weight 95.25 kg Lynn Umair MELENDREZ Work Phone: [facility] 12-06-2024 13:00-0500 Body height 157.5 cm Lynn Umair MELENDREZ Work Phone: [facility] 12-06-2024 13:00-0500 Body mass index (BMI) [Ratio] 38.41 kg/m2 Lynn Beadam MELENDREZ Work Phone: [facility] 12-06-2024 13:00-0500 Body weight 95.25 kg Lynn Block MD Work Phone: [facility] 11-14-2024 11:31-0500 Body height 157.5 cm Fozia Meng RADIOGRAPHER CARDIAC CATHETERIZATION Work Phone: [facility] 11-14-2024 11:31-0500 Body mass index (BMI) [Ratio] 37.9 kg/m2 Fozia Meng RADIOGRAPHER [employer] CATHETERIZATION Work Phone: [facility] 11-14-2024 11:31-0500 Body weight 93.98 kg Fozia Meng RADIOGRAPHER [employer] CATHETERIZATION Work Phone: [facility] 11-14-2024 11:31-0500 Diastolic blood pressure 80 mm[Hg] Fozia Meng RADIOGRAPHER [employer] CATHETERIZATION Work Phone: [facility] 11-14-2024 11:31-0500 Systolic blood pressure 134 mm[Hg] Fozia Meng RADIOGRAPHER [employer]AC CATHETERIZATION Work Phone: [facility] 10-11-2024 09:42-0500 Body height 157.5 cm Sherman Adair MD Work Phone: [facility] 10-11-2024 09:42-0500 Body mass index (BMI) [Ratio] 38.23 kg/m2 Sherman Adair MD Work Phone: [facility] 10-11-2024 09:42-0500 Body temperature 98.29 [degF] Sherman Adair MD Work Phone: [facility] 10-11-2024 09:42-0500 Body weight 94.8 kg Sherman Adair MD Work Phone: [facility] 09-14-2024 11:30-0500 Body height 157.5 cm Fozia Knutsongel RADIOGRAPHER [employer] CATHETERIZATION Work Phone: [facility] 09-14-2024 11:30-0500 Body mass index (BMI) [Ratio] 39.91 kg/m2 Fozia Knutsongel RADIOGR[employer]HER [employer] CATHETER[employer]ATION Work Phone: [facility] 09-14-2024 11:30-0500 Body weight 98.97 kg Fozia Knutsongel RADIOGRAPHER [employer] CATHETER[employer]ATION Work Phone: [facility] 09-14-2024 11:30-0500 Diastolic blood pressure 70 mm[Hg] Fozia Lyndanagel RADIOGRAPHER [employer]IAC CATHETERIZATION Work Phone: [facility] 09-14-2024 11:30-0500 Systolic blood pressure 140 mm[Hg] Fozia Lyndanagel RADIOGRAPHER [employer]AC CATHETERIZATION Work Phone: [facility] 06-10-2024 10:09-0400 Body height 157.5 cm Tiffanie Casas MD Work Phone: [facility] 06-10-2024 10:09-0400 Body mass index (BMI) [Ratio] 38.96 kg/m2 Tiffanie Casas MD Work Phone: [facility] 06-10-2024 10:09-0400 Body weight 96.62 kg Tiffanie Casas MD Work Phone: [facility] 06-10-2024 10:09-0400 Diastolic blood pressure 84 mm[Hg] Tiffanie Casas MD Work Phone: [facility] 06-10-2024 10:09-0400 Systolic blood pressure 132 mm[Hg] Tiffanie Casas MD Work Phone: [facility] 05-10-2024 14:20-0400 Body height 157.5 cm Cheryl Ginger DO Work Phone: [facility] 05-10-2024 14:20-0400 Body mass index (BMI) [Ratio] 38.41 kg/m2 Cheryl Ginger DO Work Phone: [facility] 05-10-2024 14:20-0400 Body weight 95.25 kg Cheryl Ginger DO Work Phone: [facility] 05-10-2024 14:20-0400 Diastolic blood pressure 74 mm[Hg] Cheryl Ginger DO Work Phone: [facility] 05-10-2024 14:20-0400 Heart rate 83 /min Cheryl Ginger DO Work Phone: [facility] 05-10-2024 14:20-0400 SaO2% (BldA) [Mass fraction] 97 % Cheryl Gigner DO Work Phone: [facility] 05-10-2024 14:20-0400 Systolic blood pressure 118 mm[Hg] Cheryl Ginger DO Work Phone: [facility] 03-03-2023 14:44-0400 Body temperature 98.49 [degF] MASSIMO Hassmann DPM Work Phone: [facility] 03-03-2023 14:44-0400 Diastolic blood pressure 87 mm[Hg] MASSIMO Moralezmann DPM Work Phone: [facility] 03-03-2023 14:44-0400 Heart rate 94 /min MASSIMO Hassmann DPM Work Phone: [facility] 03-03-2023 14:44-0400 Systolic blood pressure 139 mm[Hg] MASSIMO Shook DPM Work Phone: [facility] 07-02-2022 09:36-0400 Body height 157.5 cm [employer] Work Phone: [facility] 07-02-2022 09:36-0400 Body mass index (BMI) [Ratio] 38.67 kg/m2 [employer] Work Phone: [facility] 07-02-2022 09:36-0400 Body weight 95.89 kg [employer] Work Phone: [facility] 09-16-2020 20:53-0500 BMI (Body Mass Index) 39.32 kg/m2 [place] 09-16-2020 20:53-0500 Body Temperature 99.5 [degF] [place] 09-16-2020 20:53-0500 Body weight 97.52 kg [place] 09-16-2020 20:53-0500 BP Diastolic 109 mm[Hg] [place] 09-16-2020 20:53-0500 BP Systolic 189 mm[Hg] [place] 09-16-2020 20:53-0500 Height 157.5 cm [place] 09-16-2020 20:53-0500 Pulse (Heart Rate) 99 /min [place], [place] 09-16-2020 20:53-0500 Pulse Oximetry 96 % [place] 09-16-2020 20:53-0500 Respiratory Rate 18 /min [place] Encounters Encounter Date Encounter Type Care Provider Facility Start: 05-24-2025 End: 05-24-2025 Bamboo flowsheet Jennie Van CONSTITUTIONAL LAW PROFESSOR-LOGISTICIAN Work Phone: [facility] Start: 05-24-2025 End: 05-24-2025 Bamboo flowsheet Jennie Van CONSTITUTIONAL LAW PROFESSOR-LOGISTICIAN Work Phone: [facility] Start: 05-24-2025 End: 05-24-2025 ambulatory JENNIE VAN Not Available Start: 05-24-2025 End: 05-24-2025 Office outpatient visit 25 minutes Jennie Van CONSTITUTIONAL LAW PROFESSOR-LOGISTICIAN Work Phone: [facility] Comment on above: BUCK (obstructive sle ep apnea) (Primary Dx); Cervical paraspinal muscle spasm; Cervical radiculopathy Start: 05-23-2025 End: 05-23-2025 Telephone encounter Lynn lBock MD Work Phone: [facility] 111 Start: 05-15-2025 End: 05-15-2025 ambulatory FELIPE BACK [facility] Start: 05-15-2025 End: 05-15-2025 Subsequent hospital visit by physician [facility] Schedule [facility] Comment on above: Arrived Start: 04-20-2025 End: 04-20-2025 Bamboo flowsheet Robbin Sánchez DPM Work Phone: [facility] Start: 04-20-2025 End: 04-20-2025 Bamboo flowsheet Robbin Sánchez DPM Work Phone: [facility] Start: 04-20-2025 End: 04-20-2025 Office outpatient visit 25 minutes Robbin Sánchez DPM Work Phone: [facility] [employer] Comment on above: MRSA (methicillin re [...] Start: 04-14-2025 End: 04-14-2025 [facility] Start: 04-14-2025 End: 04-14-2025 Subsequent hospital [...] Start: 04-11-2025 End: 04-13-2025 [facility] Start: 04-11-2025 End: 04-13-2025 Subsequent hospital visit by physician Robbin Sánchez DPM Work Phone: [facility] Comment on above: Pain in right foot Start: 04-06-2025 End: 04-06-2025 Office outpatient visit 25 minutes Robbin Sánchez DPDieudonne Work Phone: [facility] [employer] [facility] Comment on above: Right foot pain [...] Bamboo flowsheet Robbin Sánchez DPM Work Phone: [facility] Start: 04-04-2025 End: 04-05-2025 Emergency department patient visit Severo Goodwin MD Work Phone: [facility] Emergency Department Comment on above: Pressure [...] 25 minutes Lynn Block MD Work Phone: [facility] Comment on above: BUCK (obstructive sle ep apnea) (Primary Dx); Claustrophobia ; Hypersomnia Start: 03-14-2025 End: 03-14-2025 ambulatory LYNN BLOCK Not Available Start: 02-15-2025 End: 02-17-2025 ambulatory FELIPE ADAM [facility] Start: 02-15-2025 End: 02-17-2025 Subsequent hospital visit by physician Felipe Adam MD Work Phone: [facility] Mammography Comment on above: Encounter for [...] 25 minutes Tiffanie Casas MD Work Phone: [facility] Comment on above: Charcot's [...] 60 minutes Lynn Block MD Work Phone: [facility] Comment on above: BUCK (obstructive sle ep apnea) (Primary Dx); BUCK on CPAP; Claustrophobia (CMS/HCC) Start: 11-14-2024 End: 11-14-2024 Bamboo flowsheet Fozia Meng RADIOGRAPHER CARDIAC CATHETERIZATION Work Phone: [facility] Start: 11-14-2024 End: 11-14-2024 Bamboo flowsheet Fozia Meng RADIOGRAPHER CARDIAC CATHETERIZATION Work Phone: [facility] Start: 11-14-2024 End: 11-14-2024 Office outpatient visit 25 minutes Fozia Meng RADIOGRAPHER CARDIAC CATHETERIZATION Work Phone: [facility] Comment on above: BUCK on CPAP (Primary Dx); Idiopathic progressive polyneuropathy; Restless legs; Intractable 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 (CMS/HCC) Start: 11-14-2024 End: 11-14-2024 ambulatory FOZIA MENG Not Available Start: 11-14-2024 End: 11-14-2024 ambulatory FELIPE BACK [facility] Start: 11-14-2024 End: 11-14-2024 Subsequent hospital visit by physician Felipe Adam MD Work Phone: [facility] Laboratory Comment on above: Pre-diabetes; Mixed hyperlipidemia Start: 11-02-2024 End: 11-02-2024 Telephone encounter Janel Allen NP Work Phone: [facility] 210 Start: 10-11-2024 End: 10-11-2024 Office outpatient new 45 minutes Felipe Adam MD Work Phone: [facility] Comment on above: Thyroid nodule (Prim misa Dx); Lipoma of neck Start: 10-11-2024 End: 10-11-20[facility] Start: 10-05-2024 End: 10-06-2024 Refgunner Casas MD Work Phone: [facility] Comment on above: Idiopathic progressi ve polyneuropathy; Non-seasonal allergic rhinitis due to pollen Start: 09-14-2024 End: 09-14-2024 Bamboo flowsheet Fozia Meng RADIOGRAPHER CARDIAC CATHETERIZATION Work Phone: [facility] Start: 09-14-2024 End: 09-14-2024 Bamboo flowsheet Fozia Meng RADIOGRAPHER CARDIAC CATHETERIZATION Work Phone: [facility] Start: 09-14-2024 End: 09-14-2024 Telephone encounter Fozia Meng RADIOGRAPHER CARDIAC CATHETERIZATION Work Phone: [facility] 210 Start: 09-14-2024 End: 09-14-2024 Office outpatient visit 25 minutes Fozia Meng RADIOGRAPHER CARDIAC CATHETERIZATION Work Phone: [facility] Comment on above: BUCK on CPAP (Primary Dx); Idiopathic progressive polyneuropathy; Intractable 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 (CMS/HCC); Restless legs; Bilateral carpal tunnel syndrome Start: 09-14-2024 End: 09-14-2024 ambulatory FOZIA C LYNDAPIERCECHANTEL Not Available Start: 09-09-2024 End: 09-09-2024 Transcribe Orders Fozia Marcus MA [facility] [place] Comment on above: Thyroid nodule (Prim misa Dx) Start: 09-06-2024 End: 09-08-2024 ambulatory [facility] ADAM [facility] Start: 09-06-2024 End: 09-08-2024 Subsequent hospital visit by physician Felipe Adam MD Work Phone: [facility] Ultrasound Comment on above: Thyroid nodule Start: 08-11-2024 End: 08-11-2024 Refill Tiffanie Casas MD Work Phone: [facility] Comment on above: Idiopathic progressi ve polyneuropathy; Non-seasonal allergic rhinitis due to pollen Start: 06-10-2024 End: 06-10-2024 Bamboo flowsheet Tiffanie Casas MD Work Phone: [facility] Start: 06-10-2024 End: 06-10-2024 Bamboo flowsheet Tiffanie Casas MD Work Phone: [facility] Start: 06-10-2024 End: 06-10-2024 Office outpatient visit 25 minutes Tiffanie Casas MD Work Phone: [facility] Comment on above: Idiopathic [...] Start: 02-15-2024 End: 02-15-2024 ambulatory Frances Weston [facility] Facility:[facility] Start: 02-15-2024 End: 02-15-2024 ambulatory DPM Frances Harris Work Phone: [facility] Work Phone: Start: 02-15-2024 End: 02-15-2024 Departed Referred DPM Frances Harris Work Phone: [facility] Start: 06-15-2023 End: 06-15-2023 Subsequent hospital visit by physician Felipe Adam MD Work Phone: [facility] Comment on above: Mixed hyperlipidemia Start: 04-03-2023 ambulatory FELIPE ADAM [facility] Start: 03-03-2023 End: 03-03-2023 Office outpatient new 45 minutes CJ Adam Shook DPM Work Phone: [facility] Comment on above: Charcot arthropathy of midfoot (Primary Dx); Gastrocnemius equinus, unspecified laterality; Foot pain, left Start: 02-11-2023 End: 02-12-2023 ambulatory FRANCES Weston [facility] Facility: Start: 02-05-2023 End: 02-05-2023 Subsequent hospital visit by physician Felipe Adam MD Work Phone: [facility] Comment on above: Pelvic pressure in f emale Start: 02-04-2023 End: 02-05-2023 ambulatory FRANCES Weston [facility] Facility:H1 Start: 01-28-2023 End: 01-29-2023 ambulatory [facility] Trista [facility] Facility:H1 Start: 01-06-2023 End: 01-06-2023 [facility] Start: 07-09-2022 End: 07-09-2022 Subsequent hospital visit by physician Samantha Lino RD, JOE Work Phone: [facility] Nutrition Comment on above: Arrived Start: 07-02-2022 End: 07-02-2022 Subsequent hospital visit by physician Kendall Diabetes Education Work Phone: [facility] Diabetic Education Start: 06-25-2022 End: 06-27-2022 Subsequent hospital visit by physician Tennille [facility] Comment on above: Foreign body (FB) in soft tissue Start: 06-25-2022 End: 06-27-2022 Subsequent hospital visit by physician [facility] Mri Scanner [facility] MRI Comment on above: Pain of foot, unspec ified laterality; Closed nondisplaced fracture of second metatarsal bone of left foot, initial encounter; Closed nondisplaced fracture of lateral cuneiform of left foot, initial encounter Start: 05-27-2022 End: 2022 Subsequent hospital visit by physician [facility] Ultrasound Room [facility] Ultrasound Comment on above: Neck mass Start: 04-28-2022 End: 04-29-2022 ambulatory [facility] Start: 04-28-2022 End: 04-28-2022 Subsequent hospital visit by physician Felipe Adam MD Work Phone: [facility] Comment on above: Acute cystitis with hematuria Start: 04-12-2022 End: 04-12-2022 Subsequent hospital visit by physician Felipe Adam MD Work Phone: [facility] Laboratory Comment on above: Fatigue, unspecified type; Encounter for screening for HIV; Mixed hyperlipidemia; Hyperglycemia; Chronic renal impairment, stage 3b (HCC) Start: 02-05-2022 End: 02-05-2022 Subsequent hospital visit by physician Christel Donohue PT [facility] Physical Therapy Start: 02-04-2022 End: 02-04-2022 Patient encounter procedure [facility] Ctr-MRI [address] Start: 02-03-2022 End: 02-03-2022 Subsequent hospital visit by physician Hilaria Trujillo [facility] Physical Therapy Start: 01-29-2022 End: 01-29-2022 Subsequent hospital visit by physician Beverly Rangel PTA [facility] Physical Therapy Comment on above: Arrived Start: 01-27-2022 End: 01-27-2022 Subsequent hospital visit by physician Christel Donohue PT [facility] Physical Therapy Comment on above: Arrived Start: 01-24-2022 End: 01-24-2022 Subsequent hospital visit by physician Vanessa Garcia PT [facility] Physical Therapy Comment on above: Arrived Start: 01-22-2022 End: 01-22-2022 Subsequent hospital visit by physician Beverly Rangel MEAT SEAFOOD ASSOCIATE [facility] Physical Therapy Start: 01-17-2022 End: 01-17-2022 Subsequent hospital visit by physician Beverly Rangel MEAT SEAFOOD ASSOCIATE [facility] Physical Therapy Comment on above: Arrived Start: 01-13-2022 End: 01-13-2022 Subsequent hospital visit by physician Christel Donohue PT [facility] Physical Therapy Start: 01-03-2022 End: 01-03-2022 Subsequent hospital visit by physician Beverly Rangel MEAT SEAFOOD ASSOCIATE [facility] Physical Therapy Comment on above: Arrived [...] Start: 11-29-2021 End: 11-29-2021 ambulatory FELIPE ADAM [facility] Start: 08-01-2021 End: 08-01-2021 Subsequent hospital visit by physician Felipe Adam MD Work Phone: [facility] Laboratory Comment on above: Frequent UTI; Urinary urgency; Urinary frequency Start: 07-11-2021 End: 07-11-2021 Subsequent hospital visit by physician Felipe Adam MD Work Phone: [facility] Laboratory Comment on above: Frequent UTI; Urinary urgency; Urinary frequency Start: 06-11-2021 End: 06-11-2021 Subsequent hospital visit by physician Felipe Adam MD Work Phone: [facility] Laboratory Comment on above: Acute cystitis with [...] End: 02-13-2021 Subsequent hospital visit by physician [facility] Screening Schedule [facility] PRE [facility]MIT Comment on above: Suspected COVID-19 v irus infection Start: 01-21-2021 End: 01-21-2021 Subsequent hospital visit by physician [facility] Covid19 Pat Screening Schedule [facility] PRE [facility]MIT Comment on above: Viral illness Start: 11-15-2020 End: 11-15-2020 Subsequent hospital visit by physician [facility] Pat Screening Schedule [facility] PRE [facility]MIT Comment on above: Arrived Start: 09-16-2020 End: 09-16-2020 Emergency department patient visit Robbin Rooney Work Phone: [facility] ED Comment on above: Acute thoracic [...] End: 08-29-2019 Subsequent hospital visit by physician [facility] Center Schedule [facility] SLEEP LAB Comment on above: Arrived Start: 07-28-2019 End: 07-30-2019 Subsequent hospital visit by physician Tennille [facility] Comment on above: MRSA (methicillin re sistant Staphylococcus aureus) septicemia (HCC) Start: 06-17-2019 End: 06-17-2019 Subsequent hospital visit by physician Felipe Adam [facility] Laboratory Comment on above: MRSA (methicillin re sistant Staphylococcus aureus) infection Start: 02-03-2019 End: 02-04-2019 Patient encounter procedure TIFFANIE W [facility] Start: 02-03-2019 End: 02-03-2019 Subsequent hospital visit by physician Tiffanie Casas Work Phone: [facility] MRI Comment on above: Brachial neuritis; Peripheral nerve disorder; Spasm of muscle Start: 11-10-2018 End: 11-10-2018 Patient encounter procedure Andrey Early Facility:[facility] Start: 10-18-2018 End: 10-18-2018 Patient encounter procedure Andrey Early Work Phone: [facility] Start: 10-03-2018 Patient encounter procedure Dav Pembertoni Facility:[facility] Start: 10-03-2018 End: 10-03-2018 Patient encounter procedure Felipe Jair [facility] Start: 09-20-2018 End: 09-21-2018 Patient encounter procedure Gosia Hartman [facility] Start: 09-20-2018 Patient encounter procedure Facility:[id number] Start: 09-13-2018 Patient encounter procedure GOSIA HARTMAN [facility] Start: 09-06-2018 End: 09-06-2018 Patient encounter procedure [facility] Provider [facility] Start: 08-31-2018 End: 08-31-2018 Patient encounter procedure Historical Provider [facility] Start: 08-27-2018 End: 08-28-2018 Patient encounter procedure Dav Hartman Facility:[facility] Start: 08-27-2018 Patient encounter procedure Facility:[id number] Start: 08-15-2018 End: 08-25-2018 Evaluation and management of inpatient JV Sullivan [facility] Start: 04-02-2018 End: 04-02-2018 Patient encounter procedure Melchortaylor Calderon Facility:[facility] Start: 03-23-2018 Patient encounter procedure Shanice Juares Facility:[facility] Start: 02-04-2018 End: 02-04-2018 Ambulatory Melchor Weston Kvng [facility] Start: 11-24-2017 Patient encounter procedure [facility] Start: 11-17-2017 End: 11-17-2017 Ambulatory Ceferino Jory Work Phone: [facility] Start: 10-20-2017 End: 10-20-[address] [facility] Start: 10-20-2017 Patient encounter procedure [facility] Start: 10-09-2017 Ambulatory [facility] Start: 10-09-2017 End: 10-09-2017 Patient encounter procedure [facility] Start: 09-16-2017 Patient encounter procedure [facility] Start: 08-03-2017 Ambulatory [facility] Start: 03-31-2017 End: 03-31-2017 Ambulatory SHANICE GOLDSTEIN MOR [facility] Procedures Date Procedure Procedure Detail Performing [...] Phone: Start: 01-21-2021 COVID-19 Pattie Tafoya lliams CONSTITUTIONAL LAW PROFESSOR - LOGISTICIAN Work Phone: Start: 11-15-2020 COVID-19 Gosia Jau [...] 09-24-2019 Hemoglobin glycosyla jamia a1c Janel Dieudonne [employer] CONSTITUTIONAL LAW PROFESSOR - LOGISTICIAN Work Phone: Start: 09-24-2019 VITAMIN B12 & FOLATE Ja danny Dieudonne 12Bistemi CONSTITUTIONAL LAW PROFESSOR - LOGISTICIAN Work Phone: Start: 07-28-2019 Radex spine cervical 4 or 5 views Azalea Knight Work Phone: Start: 07-28-2019 Blood count complete auto&auto difrntl wbc Azalea Knight CONSTITUTIONAL LAW PROFESSOR - LOGISTICIAN Work Phone: Start: 07-28-2019 C-reactive protein Azalea Agudeloe CONSTITUTIONAL LAW PROFESSOR - LOGISTICIAN Work Phone: Start: 06-17-2019 Albumin serum plasma [...] 10-03-2018 Microscopic examination of blood, culture Dav [facility]rat[facility] Comment on above: Performed By: #### B C #### Unless otherwise noted, all testing performed by [facility] [place] [address] [address] [place], [place] [address] CLIA: [id number] Automatic Engraver: Harshad Solano M.D. Start: 09-06-2018 End: 09-06-2018 [...] Dieudonne ZECHARIAH Start: 08-25-2018 PULSE OXIMETRY, CONTINUOUS JVMARISABLE APPLE Start: 08-25-2018 INSERT PICC LINE JV [...] Detail Author Start: 04-14-2030 Lipid panel Lipids [employer] [facility] Start: 11-14-2029 Lipid panel Lipids [facility] [employer] Start: 2029 Shingles Vaccine (1 of 2) Shingles Vaccine (1 of 2) [employer], [place] Start: 05-02-2029 Lipid panel Lipids Ayannah Start: 12-10-2027 Screening for malignant neoplasm of colon [facility] [employer] Start: 04-12-2027 Lipid panel Lipids [facility] [employer] Start: 02-15-2027 Screening for malignant neoplasm of breast Breast cancer screen [facility] [employer] Start: 05-15-2026 GFR test (Diabetes, CKD 3-4, OR last GFR 15-59) GFR test (Diabetes, CKD 3-4, OR last GFR 15-59) [employer] [facility] Start: 05-14-2026 Lipid panel [employer] Start: 04-14-2026 GFR test (Diabetes, CKD 3-4, OR last GFR 15-59) GFR test (Diabetes, CKD 3-4, OR last GFR 15-59) [employer] [facility] Start: 04-14-2026 Hemoglobin A1c measurement A1C test (Diabetic or Prediabetic) [facility] Start: 04-11-2026 GFR test (Diabetes, CKD 3-4, OR last GFR 15-59) GFR test (Diabetes, CKD 3-4, OR last GFR 15-59) [employer] [facility] Start: 11-15-2025 Depression Monitoring Depression Monitoring [employer] Start: 11-14-2025 GFR test (Diabetes, CKD 3-4, OR last GFR 15-59) GFR test (Diabetes, CKD 3-4, OR last GFR 15-59) [facility] Start: 11-14-2025 Hemoglobin A1c measurement A1C test (Diabetic or Prediabetic) [facility] Start: 10-12-2025 End: 10-12-2025 Patient encounter procedure 10/12/2025 10:30 AM EST Office Visit [facility] [address] [facility] [place] [address] Sherman Adair MD [address] [address] [facility] Start: 10-11-2025 End: 10-11-2026 US Head and neck soft tissue US Soft Tissue Neck Imaging Routine Thyroid nodule Expected: 10/11/2025, Expires: 10/11/2026 [facility] Work Phone: Comment on above: Expected: 10/11/2025, Expires: Start: 08-23-2025 End: 08-23-2025 Patient encounter procedure 08/23/2025 1:00 PM EST Office Visit [facility] [address] [place] [address] [place] [phone] Jennie Van, CONSTITUTIONAL LAW PROFESSOR-LOGISTICIAN [address] [facility] [place] [address] [facility] Start: 07-27-2025 End: 07-27-2025 Patient encounter procedure 07/27/2025 11:00 AM EDT Office Visit [facility] [address] [place] [address] Felipe Adam MD [address] [place] [address] Return in about 3 months (around 07/19/2025). [facility] Comment on above: Return in about 3 months (around 025). Start: 05-31-2025 End: 05-24-2026 XR Cervical spine 4 or 5 Views XR cervical spine complete 4 to 5 views Imaging Routine Cervical paraspinal muscle spasm Expected: 05/31/2025, Expires: 05/24/2026 [facility] Work Phone: Comment on above: Expected: 05/31/2025, Expires: Start: 05-25-2025 Lipid panel Lipid screen [facility] [place], [place] Start: 05-24-2025 End: 05-24-2025 Patient encounter procedure 05/24/2025 11:30 AM EDT [facility] [address] [place] [phone] Jennie Van [facility] [address] [facility] [place] [address] [facility] Start: 05-17-2025 End: 05-17-2025 Patient encounter procedure 05/17/2025 1:20 PM EDT Office Visit [facility] [address] [place] [phone] Tiffanie Casas MD [address] [facility] [address] [id number] [facility] Start: 05-15-2025 End: 05-15-2025 Patient encounter procedure 05/15/2025 1:15 PM EDT Office Visit [address] [address] Felipe Adam MD [address] [place] [address] Return in about 6 months (around 05/15/2025). [facility] Comment on above: Return in about 6 months (around 05/15/20). Start: 05-10-2025 GFR test (Diabetes, CKD 3-4, OR last GFR 15-59) GFR test (Diabetes, CKD 3-4, OR last GFR 15-59) [facility] Start: 05-05-2025 Influenza vaccination [facility] Start: 05-02-2025 Hemoglobin A1c measurement A1C test (Diabetic or Prediabetic) [facility] Start: 05-02-2025 End: 05-02-2025 Patient encounter procedure 05/02/2025 2:00 PM EDT Office Visit [facility] B [address] [facility] [address] [place] [address] Fozia Meng, RADIOGRAPHER CARDIAC CATHETERIZATION [address], [facility] [address] [place] [address] [facility] B Start: 05-01-2025 End: 05-01-2025 Patient encounter procedure 05/01/2025 4:00 PM EDT Office Visit [facility] [address] [place] [address] Robbin Sánchez, DPM [address] [place] [address] [facility] Start: 04-20-2025 End: 04-20-2025 Patient encounter procedure 04/20/2025 12:45 PM EDT Office Visit [facility] [address] [place] [address] Robbin Sánchez, DPM [address] [place], [place] [phone] Arrived [facility] Comment on above: Arrived Start: 04-06-2025 End: 04-06-2025 Patient encounter procedure 04/06/2025 4:30 PM EDT Office Visit [facility] [address] [place] [address] Robbin Sánchez, DPM [address] [place], [place] [phone] Arrived [facility] Comment on above: Arrived Start: 04-06-2025 End: 04-06-2026 Creatinine [Mass/volume] in Serum or Plasma Creatinine, Serum Lab Routine Right foot pain Expected: 04/06/2025 (Approximate), Expires: 04/06/2026 [facility] Comment on above: Expected: 04/06/2025 (Approximate), Expi res: 04/06/2026 Start: 04-06-2025 End: 04-06-2026 MR Foot - right WO and W contrast IV MR foot right w and wo IV contrast Imaging STAT Right foot pain Expected: 04/06/2025, Expires: 04/06/2026 [facility] Work Phone: Comment on above: Expected: 04/06/2025, Expires: Start: 03-14-2025 End: 03-14-2025 Patient encounter procedure [facility] B Start: 02-13-2025 End: 02-13-2025 Patient encounter procedure 02/13/2025 1:00 PM EDT Office Visit [facility] [address] [address] Tiffanie Casas MD [address] [facility] [address] [phone] [facility] Start: 01-27-2025 Depression Monitoring Depression Monitoring [facility] Start: 11-15-2024 End: 11-15-2024 Patient encounter procedure 11/15/2024 2:45 PM EST Office Visit [facility] [address] [place] [phone] Felipe Adam MD [address] [place] [address] 6 mo [facility] Comment on above: 6 mo Start: 11-14-2024 End: 11-14-2024 Patient encounter procedure [facility] R Comment on above: Arrived Start: 11-11-2024 End: 11-11-2024 Patient encounter procedure 11/11/2024 1:00 PM EST Office Visit [facility] [address] [place] [address] Felipe Adam MD [address] [place] [address] 6 mo [facility] Comment on above: 6 mo Start: 09-24-2024 Screening for malignant neoplasm of cervix [facility] Start: 09-14-2024 End: 09-14-2024 Patient encounter procedure 09/14/2024 11:20 AM EST Office Visit [facility] [address] [facility] [address] [place] [address] Fozia Meng RADIOGRAPHER CARDIAC CATHETERIZATION [address] [facility] [address] [place] [phone] Arrived [facility] Comment on above: Arrived Start: 09-08-2024 DTaP/Tdap/Td vaccine (2 - Td or Tdap) DTaP/Tdap/Td vaccine (2 - Td or Tdap) [facility] Start: 09-08-2024 DTaP/Tdap/Td vaccine (2 - Td) DTaP/Tdap/Td vaccine (2 - Td) [place] Start: 09-08-2024 Tetanus vaccination [facility] Start: 09-05-2024 End: 09-05-2024 Patient encounter procedure 09/05/2024 1:00 PM EST Office Visit [facility] [address] [facility] [address] [place] [phone] Tiffanie Casas MD [address] [facility] [address], [place] [phone] [facility] Start: 08-18-2024 End: 08-18-2024 Patient encounter procedure 08/18/2024 1:30 PM EST Office Visit [facility] Urology [address] [facility] 2[address] Floor [place], [place] [phone] Luis Mclean PA-C [address] [facility] [address] [place] [address] 1 yr [facility]rology Comment on above: [facility] Start: 08-02-2024 End: 08-02-2024 Patient encounter procedure 08/02/2024 10:45 AM EDT Office Visit [facility] [address] [place] [phone] Cheryl Miles DO [address] [place] [address] [facility] Start: 07-11-2024 End: 07-11-2024 Telemedicine consultation with patient 07/11/2024 11:30 AM EDT Telemedicine [facility] [address] [place] [address] Janel Allen, RADIOGRAPHER CARDIAC CATHETERIZATION [address] [place] [address] [facility] [address] Start: 06-10-2024 End: 06-10-2024 Patient encounter procedure 06/10/2024 10:20 AM EDT Office Visit [facility] [address] [facility] [address] [place] [phone] Tiffanie Casas MD [address] [place] [address] Arrived [facility] Comment on above: Arrived Start: 06-05-2024 COVID-19 Vaccine ( season) COVID-19 Vaccine ( season) [facility] Start: 06-05-2024 COVID-19 Vaccine ( season) COVID-19 Vaccine ( season) [facility] Start: 06-05-2024 Influenza vaccination Influenza Vaccine (#1) [facility] Start: 2024 Screening for malignant neoplasm of colon [facility] Start: 05-17-2024 GFR test (Diabetes, CKD 3-4, OR last GFR 15-59) GFR test (Diabetes, CKD 3-4, OR last GFR 15-59) [facility] Start: 05-14-2024 Diabetes screen Diabetes screen [facility] Start: 05-12-2024 End: 05-12-2024 Patient encounter procedure 05/12/2024 11:00 AM EDT Office Visit [facility] Part of [address] [phone] Lina Echols MD [facility] [address] [address] BUCK (obstructive sleep apnea) [facility] PUL Part of [facility] Comment on above: BUCK (obstructive sleep apnea) Start: 05-11-2024 Lipid panel Lipid screen [place] Start: 05-11-2024 Lipid screen Lipid screen [place] Start: 05-05-2024 Influenza vaccination Flu vaccine (#1) [facility] Start: 03-23-2024 Depression Monitoring Depression Monitoring [facility] Start: 02-06-2024 GFR test (Diabetes, CKD 3-4, OR last GFR 15-59) GFR test (Diabetes, CKD 3-4, OR last GFR 15-59) [facility] Start: 02-06-2024 Hemoglobin A1c measurement A1C test (Diabetic or Prediabetic) [facility] Start: 08-13-2023 End: 08-13-2023 Patient encounter procedure [facility] Start: 06-22-2023 End: 06-22-2023 Patient encounter procedure 06/22/2023 11:15 AM EDT Office Visit [facility] [address] [place] [address] Felipe Adam MD [address] [place] [address] [facility] Start: 06-05-2023 Influenza vaccination Sequential Influenza Vaccine (Season Ended) [facility] Start: 05-05-2023 Influenza vaccination [facility] Start: 04-14-2023 End: 04-14-2023 Patient encounter procedure 04/14/2023 Office Visit Family Medicine Felipe Adam MD [address] [place] [address] [facility] Start: 04-12-2023 Hemoglobin A1c measurement A1C test (Diabetic or Prediabetic) [facility] Start: 04-11-2023 Depression Monitoring Depression Monitoring [facility] Start: 04-11-2023 History and physical examination, annual for health maintenance Wellness Visit [facility] Start: 12-25-2022 End: 12-25-2022 Patient encounter procedure 12/25/2022 Office Visit Infectious Diseases Dav Hartman MD [address] [address] [facility]. Start: 09-24-2022 Diabetes screen Diabetes screen [place] Start: 08-07-2022 End: 08-07-2022 Patient encounter procedure 08/07/2022 Office Visit Urology Luis Mclean, PACharitoC [address] [facility] [address] [address] [facility] Start: 07-15-2022 End: 07-15-2022 Nursing evaluation of patient and report 07/15/2022 Nurse Only Family Medicine [facility] Start: 07-09-2022 End: 07-09-2022 Patient encounter procedure 07/09/2022 Appointment IP Unit Samantha Lino RD, LD [facility] Diet and Nutrition Start: 06-05-2022 Influenza vaccination [facility] Start: 05-20-2022 Creatinine measurement [facility] Start: 05-20-2022 Potassium [Moles/volume] in Serum or Plasma Potassium [facility] Start: 05-20-2022 Potassium monitoring Potassium monitoring [employer] Start: 05-14-2022 Creatinine measurement Creatinine monitoring [employer] Phone: Start: 05-14-2022 Potassium monitoring Potassium monitoring [employer] Phone: Start: 05-05-2022 Influenza vaccination Flu vaccine (#1) [facility] Start: 03-20-2022 Screening for malignant neoplasm of cervix [facility] Start: 02-05-2022 End: 02-05-2022 Patient encounter procedure 02/05/2022 Appointment Physical Therapy Christel Donohue, PT [facility] Start: 02-03-2022 End: 02-03-2022 Patient encounter procedure [facility] Start: 01-30-2022 End: 01-30-2022 Patient encounter procedure [facility] Start: 01-29-2022 End: 01-29-2022 Patient encounter procedure 01/29/2022 Appointment Physical Therapy Bveerly Rangel MEAT SEAFOOD ASSOCIATE [facility] Start: 01-27-2022 End: 01-27-2022 Patient encounter procedure 01/27/2022 Appointment Physical Therapy Christel Donohue, PT [facility] Start: 01-24-2022 End: 01-24-2022 Patient encounter procedure 01/24/2022 Appointment Physical Therapy Vanessa Garcia PT [facility] Start: 01-22-2022 End: 01-22-2022 Patient encounter procedure 01/22/2022 Appointment Physical Therapy Beverly Rangel MEAT SEAFOOD ASSOCIATE [facility] Start: 01-17-2022 End: 01-17-2022 Patient encounter procedure 01/17/2022 Appointment Physical Therapy Beverly Rangel MEAT SEAFOOD ASSOCIATE [facility] Start: 01-10-2022 End: 01-10-2022 Patient encounter procedure 01/10/2022 Appointment Physical Therapy Christel Donohue PT [facility] Start: 01-08-2022 End: 01-08-2022 Patient encounter procedure 01/08/2022 Appointment Physical Therapy Beverly Rangel MEAT SEAFOOD ASSOCIATE [facility] Start: 01-02-2022 End: 01-02-2022 Patient encounter procedure 01/02/2022 Appointment Occupational Therapy Judi Marie OTA [address] [place] [address] [facility] Occupational Therapy Start: 12-31-2021 Diabetes screen Diabetes screen [facility] Start: 12-31-2021 End: 12-31-2021 Patient encounter procedure [facility] Physica l Therapy Start: 12-30-2021 End: 12-30-2021 Patient encounter procedure 12/30/2021 Appointment Occupational Therapy Cheryl Herman OT [facility] Occupational Therapy Start: 12-27-2021 End: 12-27-2021 Patient encounter procedure 12/27/2021 Appointment Occupational Therapy Eve Gaspar OTA [facility] Occupational Therapy Start: 11-14-2021 End: 11-14-2021 Patient encounter procedure 11/14/2021 Office Visit Family Medicine Felipe Adam MD [address] [place] [id number] [facility] Start: 10-29-2021 Depression Monitoring Depression Monitoring [employer] Start: 09-16-2021 Creatinine measurement Creatinine monitoring Smart[employer] Phone: Start: 09-16-2021 Potassium monitoring Potassium monitoring Smartdate Phone: Start: 08-01-2021 End: 08-01-2021 Patient encounter procedure 08/01/2021 Office Visit Urology Lita Weeks MD [address] [place] [address], [facility] [address] [place] [address] [employer] Start: 06-05-2021 Influenza vaccination [employer] Start: 05-25-2021 Creatinine measurement Creatinine monitoring [facility] [place] Start: 05-25-2021 HbA1c (Bld) [Mass fraction] A1C test (Diabetic or Prediabetic) [facility] [employer] [place], TIFF Start: 05-25-2021 Hemoglobin A1c measurement A1C test (Diabetic or Prediabetic) Smart[employer] Phone: Start: 05-25-2021 Potassium monitoring [place] Start: 11-13-2020 End: 11-13-2020 Office Visit 11/13/2020 Office Visit Family Medicine BackFelipe MD [address] [place] [address] [phone] [facility] Start: 11-02-2020 Potassium monitoring Potassium monitoring [place] Start: 10-23-2020 End: 10-23-2020 Office Visit 10/23/2020 Office Visit Infectious Diseases Dav Hartman MD [address] [place], [place] [id number] [facility] Start: 09-24-2020 HbA1c (Bld) [Mass fraction] A1C test (Diabetic or Prediabetic) [place] Start: 06-17-2020 Creatinine measurement Creatinine monitoring [place], [place] Start: 06-17-2020 Creatinine monitoring Creatinine monitoring [place] Start: 06-17-2020 Potassium monitoring Potassium monitoring [place] Start: 06-12-2020 End: 06-12-2020 Office Visit 06/12/2020 Office Visit Infectious Diseases Dav Hartman MD [address] [place], [place] [id number] [facility] Start: 06-05-2020 Influenza vaccination Flu vaccine (#1) [place] Start: 03-20-2020 Cervical cancer screen Cervical cancer screen [place] Start: 03-20-2020 Screening for malignant neoplasm of cervix [facility] Start: 11-01-2019 End: 11-01-2019 Office Visit 11/01/2019 Office Visit Infectious Dav Beaver MD [address] [place], [place] [id number] [facility] Start: 07-28-2019 End: 07-28-2019 Office Visit 07/28/2019 Office Visit Dav Gay MD [address] [place] [address] [phone] [facility] Start: 06-27-2019 End: 06-27-2019 Nurse Only 06/27/2019 Nurse Only Family Medicine [facility] Start: 06-05-2019 Influenza vaccination Flu vaccine (#1) [place] Start: 06-05-2019 Influenza vaccination given SEQUENTIAL INFLUENZA VACCINE (Season Ended) [facility] Start: 2019 Screening for malignant neoplasm of breast [facility] Start: 06-05-2018 Influenza vaccination INFLUENZA VACCINE (#1) [facility] Work Phone: Start: 03-23-2018 End: 03-23-2018 Ambulatory [facility] Primary Care [facility] Start: 2009 Screening for malignant neoplasm of cervix HPV (without or with Pap) [facility] Start: 2000 Screening for malignant neoplasm of cervix PAP SMEAR DISCUSSION [facility] Work Phone: Start: 1998 Hepatitis B vaccine (1 of 3 - 19+ 3-dose series) Hepatitis B vaccine (1 of 3 - 19+ 3-dose series) [facility] Start: 1998 Third diphtheria, tetanus and acellular pertussis (DTaP) vaccination TDAP (ADULT) [facility] Work Phone: Start: 1997 Hepatitis C screening Hepatitis C Screening [facility] Start: 1997 Tetanus vaccination TETANUS [facility] Work Phone: Start: 1995 COVID-19 Vaccine (1) COVID-19 Vaccine (1) [facility] Work Phone: Start: 1994 HIV screen HIV screen [place] Start: 1994 HIV screening HIV screen [facility] Start: 1992 HIV screening HIV SCREENING DISCUSSION [facility] Work Phone: Start: 1991 COVID-19 Vaccine (1) COVID-19 Vaccine (1) [employer] Phone: Start: 1991 Depression Monitoring Depression Monitoring [employer] Start: 1991 Depression screening using PHQ-9 (Patient Health Questionnaire 9) score [facility] Start: 1989 Urine screening for protein Urine Microalbumin [facility] Start: 1985 Pneumococcal Vaccine: Ped or At-Risk (1 - PCV) Pneumococcal Vaccine: Ped or At-Risk (1 - PCV) [facility] Start: 1984 COVID-19 Vaccine (1) COVID-19 Vaccine (1) [employer] Start: 1982 History and physical examination, annual for health maintenance Wellness Visit [facility] Start: 1979 COVID-19 Vaccine (#1) COVID-19 Vaccine (#1) [facility] Start: 1979 Hepatitis B vaccine (1 of 3 - 3-dose series) Hepatitis B vaccine (1 of 3 - 3-dose series) [facility] Start: 1979 Screening for malignant neoplasm of colon [facility] End: 02-13-2021 COVID-19 COVID-19 Lab Routine Suspected COVID-19 virus infection 1 Occurrences starting 02/13/2021 until 02/13/2021 [employer] Phone: Comment on above: 1 Occurrences starting 02/13/2021 until 02/13/2021 COVID-19 COVID-19 Lab Rou luis Suspected COVID-19 virus infection 02/13/2021 3:06 PM EDT [employer] Phone: End: 08-08-2020 COVID-19 Ambulatory COVID-19 Ambulatory Lab Routine SOB (shortness of breath) 1 Occurrences starting 08/08/2020 until 08/08/2020 [facility] [place] Comment on above: 1 Occurrences starting 08/08/2020 until 08/08/2020 COVID-19 Ambulatory COVID-19 Amb ulatory Lab Routine SOB (shortness of breath) 08/08/2020 4:02 PM EST [facility] End: 05-20-2021 Creatinine [Mass/volume] in Urine Creatinine, Random Urine Lab Routine Once for 1 Occurrences starting 05/20/2021 until 05/20/2021 [employer] Phone: Comment on above: Once for 1 Occurrences starting 05/20/20 until 05/20/2021 Creatinine [Mass/vol ume] in Urine Creatinine, Random Urine Lab Routine 05/20/2021 7:57 PM EDT [employer] Phone: End: 04-13-2021 Culture, Urine Culture, Urine Microbiology Routine Acute cystitis with hematuria 1 Occurrences starting 04/13/2021 until 04/13/2021 [employer] Phone: Comment on above: 1 Occurrences starting 04/13/2021 until 04/13/2021 Culture, Urine [employer] Phone: End: 05-27-2021 Culture, Urine Culture, Urine Microbiology Routine Difficult or painful urination 1 Occurrences starting 05/27/2021 until 05/27/2021 [employer] Phone: Comment on above: 1 Occurrences starting 05/27/2021 until 05/27/2021 End: 06-11-2021 Culture, Urine Culture, Urine Microbiology Routine Acute cystitis with hematuria Recurrent UTI 1 Occurrences starting 06/11/2021 until 06/11/2021 [employer] Phone: Comment on above: 1 Occurrences starting 06/11/2021 until 06/11/2021 End: 07-11-2021 Culture, Urine Culture, Urine Microbiology Routine Frequent UTI Urinary urgency Urinary frequency 1 Occurrences starting 07/11/2021 until 07/11/2021 [employer] Phone: Comment on above: 1 Occurrences starting 07/11/2021 until 07/11/2021 End: 08-01-2021 Culture, Urine Culture, Urine Microbiology Routine Frequent UTI Urinary urgency Urinary frequency 1 Occurrences starting 08/01/2021 until 08/01/2021 [employer] Phone: Comment on above: 1 Occurrences starting 08/01/2021 until 08/01/2021 End: 04-28-2022 Culture, Urine Culture, Urine Microbiology Routine Acute cystitis with hematuria 1 Occurrences starting 04/28/2022 until 04/28/2022 [employer] Phone: Comment on above: 1 Occurrences starting 04/28/2022 until 04/28/2022 End: 02-05-2023 Culture, Urine [employer] Phone: Comment on above: 1 Occurrences starting 02/05/2023 until 02/05/2023 End: 04-04-2025 Culture, Wound (with Gram Stain) [facility] Comment on above: One Time for 1 Occurrences starting 10/2024 until 04/04/2025 End: 02-15-2025 DBT Breast - bilateral screening [facility] Comment on above: 1 Occurrences starting 02/15/2025 until 02/15/2025 End: 04-12-2022 Hemoglobin A1c/Hemoglobin.total in Blood [employer] Phone: Comment on above: 1 Occurrences starting 04/12/2022 until 04/12/2022 End: 02-05-2023 Hemoglobin A1c/Hemoglobin.total in Blood [employer] Phone: Comment on above: Once for 1 Occurrences starting 02/06/20 23 until 02/05/2023 End: 08-29-2019 Home Sleep Study Home Sleep Study Sleep Center Routine One Time for 1 Occurrences starting 08/29/2019 until 08/29/2019 [employer] [place], [place] Comment on above: One Time for 1 Occurrences starting 08/06 until 08/29/2019 End: 09-24-2019 Methylmalonic Acid, Serum Methylmalonic Acid, Serum Lab Routine Once for 1 Occurrences starting 09/24/2019 until 09/24/2019 [employer] Phone: Comment on above: Once for 1 Occurrences starting 09/24/20 19 until 09/24/2019 Methylmalonic Acid, Serum Methyl malonic Acid, Serum Lab Routine 09/24/2019 9:33 AM EST [employer] Phone: End: 09-24-2019 Nuclear Ab [Titer] in Serum by Immunofluorescence [facility] Lab Routine Once for 1 Occurrences starting 09/24/2019 until 09/24/2019 [employer] Phone: Comment on above: Once for 1 Occurrences starting 09/24/20 until 09/24/2019 Nuclear Ab [Titer] i n Serum by Immunofluorescence [facility] Lab Routine 09/24/2019 9:33 AM [employer] Phone: End: 05-20-2021 Protein, urine, random Protein, urine, random Lab Routine Once for 1 Occurrences starting 05/20/2021 until 05/20/2021 [employer] Phone: Comment on above: Once for 1 Occurrences starting 05/20/20 until 05/20/2021 Protein, urine, random Protein, urine, random Lab Routine 05/20/2021 7:57 PM EDT [employer] Phone: End: 12-14-2019 Sedimentation Rate Sedimentation Rate Lab Routine MRSA (methicillin resistant Staphylococcus aureus) septicemia (HCC) 1 Occurrences starting 12/14/2019 until 12/14/[facility] [place] Comment on above: 1 Occurrences starting 12/14/2019 until 12/14/2019 Sedimentation Rate Sedimentation Rate Lab Routine MRSA (methicillin resistant Staphylococcus aureus) septicemia (HCC) 12/14/2019 12:39 PM EDT [employer] [place] End: 09-24-2019 Sjogrens syndrome-A extractable nuclear antibody Sjogrens syndrome-A extractable nuclear antibody Lab Routine Once for 1 Occurrences starting 09/24/2019 until 09/24/2019 [employer] Phone: Comment on above: Once for 1 Occurrences starting 09/24/20 until 09/24/2019 Sjogrens syndrome-A extractable nuclear antibody Sjogrens syndrome-A extractable nuclear antibody Lab Routine 09/24/2019 9:33 AM [employer] Phone: End: 09-24-2019 Sjogrens syndrome-B extractable nuclear antibody Sjogrens syndrome-B extractable nuclear antibody Lab Routine Once for 1 Occurrences starting 09/24/2019 until 09/24/2019 [employer] Phone: Comment on above: Once for 1 Occurrences starting 09/24/20 until 09/24/2019 Sjogrens syndrome-B extractable nuclear antibody Sjogrens syndrome-B extractable nuclear antibody Lab Routine 09/24/2019 9:33 AM [employer] Phone: End: 09-12-2019 Sleep Study with PAP Titration Sleep Study with PAP Titration Sleep Center Routine One Time for 1 Occurrences starting 09/12/2019 until 09/12/2019 [employer] Phone: Comment on above: One Time for 1 Occurrences starting 06/2019 until 09/12/2019 End: 09-24-2019 Vitamin B6 Vitamin B6 Lab Routine Once for 1 Occurrences starting 09/24/2019 until 09/24/2019 [employer] Phone: Comment on above: Once for 1 Occurrences starting 09/24/20 until 09/24/2019 Vitamin B6 Vitamin B6 Lab R outine 09/24/2019 9:33 AM [employer] Phone: XR Cervical spine 4 or 5 Views XR cervical spine complete 4 to 5 views Imaging Routine Cervical paraspinal muscle spasm 05/24/2025 12:45 PM EDT [facility] Immunizations Immunization Date Immunization Notes Care Provider Yair dai 09-08-2014 tetanus toxoid, redu gaby diphtheria toxoid, and acellular pertussis vaccine, adsorbed Felipe Back [facility] [place] Payers Date Payer Category Payer Managed Care HMO (unspecified) [facility] HMO/CHOICE PLUS/DULCE/DULCE PLUS [id number] 2024 Private Health Insurance [id number] 2024 Private Health Insurance [id number]. [id number] 2024 Self-pay [id number] [phone] [id number] 2017 Blue Cross Blue Shie ld (Indemnity or Managed Care) - Out of State BCBS OUT OF STATE [facility] [id number] 2017 Unknown 2016 Unknown [id number] 2016 Unknown xxxxxxxxxxxxxxx [id number]. [id number] 2014 Medicaid [id number] 2.16.840.1.957749.3.249.13 2014 Medicaid [employer] [facility] MEDICAID [employer] MEDICAID xxxxxxxxxxx 2014-Present xxxxxxxxxxx [id number]. [id number] 1979 Unknown [id number] 2.16.840.1.398921.3.579.2.35 6 1979 Unknown [id number] 2.16.840.1.882355.3.579.2.35 6 1979 Unknown [id number] 2.16.840.1.551667.3.579.2.71 7 1979 Unknown [id number] 2.16.840.1.143823.3.579.2.71 7 1979 Unknown [id number] 2.16.840.1.681409.3.579.2.17 5 1979 Unknown [id number] 2.16.840.1.763261.3.579.2.90 3 1979 Unknown [id number] 2.16.840.1.575296.3.579.2.18 2 1979 Unknown [id number] 2.16.840.1.405632.3.579.2.18 5 1979 Unknown [id number] 2.16.840.1.930063.3.579.2.90 3 1979 Unknown [id number] 2.16.840.1.247323.3.579.2.59 3 1979 Unknown [id number] 2.16.840.1.815276.3.579.2.59 3 1979 Unknown [id number] 2.16.840.1.736879.3.579.2.59 3 1979 Unknown [id number] 2.16.840.1.997302.3.579.2.90 3 1979 Unknown [id number] 2.16.840.1.312273.3.579.2.90 3 1979 Unknown [id number] 2.16.840.1.205452.3.579.2.72 7 1979 Unknown [id number] 2.16.840.1.456616.3.579.2.17 4 1979 Unknown [id number] 2.16.840.1.509205.3.579.2.17 4 1979 Unknown [id number] 2.16.840.1.547392.3.579.2.17 4 1979 Unknown [id number] 2.16.840.1.960755.3.579.2.17 4 1979 Unknown [id number] 2.16.840.1.498799.3.579.2.17 4 1979 Unknown [id number] 2.16.840.1.477362.3.579.2.17 4 1979 Unknown [id number] 2.16.840.1.842927.3.579.2.17 4 1979 Unknown [id number] 2.16.840.1.499281.3.579.2.12 59 1979 Unknown [id number] 2.16.840.1.345679.3.579.2.12 59 1979 Unknown [id number] 2.16.840.1.111324.3.579.2.12 59 1979 Unknown [id number] 2.16.840.1.315717.3.579.2.12 59 1979 Unknown [id number] 2.16.840.1.846210.3.579.2.12 59 1979 Unknown [id number] 2.16.840.1.741161.3.579.2.12 59 1979 Unknown [id number] 2.16.840.1.698874.3.579.2.12 59 1979 Unknown [id number] 2.16.840.1.637982.3.579.2.12 59 1979 Unknown [id number] 2.16.840.1.029646.3.579.2.12 59 1979 Unknown [id number] 2.16.840.1.077973.3.579.2.12 59 1979 Unknown [id number] 2.16.840.1.839391.3.579.2.12 59 1959 Unknown [id number] 1.2.840.121871.1.13.239.2.7. [id number] Unknown 114 Unknown [id number] 2.16.840.1.105448.3.579.2.53 1 Social History Date Type Detail Facility Start: 05-01-2015 End: 03-06-2023 Tobacco smoking status INIS Never smoker [facility] Work Phone: Start: 1980 Sex Assigned At Not on file [facility] Work Phone: Start: 05-27-2019 End: 05-24-2025 Alcohol intake No [place] Start: 12-13-2019 End: 04-18-2025 Alcohol intake Current non-drinker of alcohol (finding) [place] Start: 12-09-2019 End: 05-13-2021 History [employer]OH Financial 4 [place] Start: 12-09-2019 End: 05-20-2022 History SDOH Food Worry 1 [place] Start: 12-09-2019 History SDOH Transpo rt Med 2 [place] Start: 05-11-2020 End: 03-06-2023 Tobacco use and exposure Never used [place] Start: 10-30-2021 End: 03-02-2023 Exposure to SARS-CoV-2 (event) Not sure [place] Start: 1980 Sex Assigned At Female [facility] Start: 05-20-2022 History SDOH Financial 3 [employer] [facility] Work Phone: Start: 01-06-2023 End: 05-24-2025 History of Social function [facility] How hard is it for y ou to pay for the very basics like food, housing, medical care, and heating Not very hard [facility]annah Patient Health Questionnaire 9 item (PHQ-9) total score [Reported] 0 [employer] Letao (I/We) worried wheyaritza er (my/our) food would run out before (I/we) got money to buy more. Never true [employer] [facility] At any time in the p ast 12 months, were you homeless or living in usp [including now]? No [employer] [facility] Start: 10-09-2020 Gender identity Identifies as female gender (finding) [employer] [facility] Start: 10-09-2020 Sexual orientation Heterosexual (brooklynn siddiqui) [employer] [facility] How hard is it for y ou to pay for the very basics like food, housing, medical care, and heating Somewhat hard [employer] [facility] Start: 06-10-2024 End: 04-06-2025 Alcoholic beverage intake Lifetime non-drinker (finding) [facility] Start: 08-19-2023 Alcohol Comment Caffeine Intak e: Yes, pop [facility] Start: 11-14-2012 Sex Female (finding) [facility] alfredito Coleman [employer] How often to you hav e a drink containing alcohol? Never [facility] Start: 04-20-2025 End: 05-24-2025 Alcoholic beverage intake Ex-drinker (finding) [facility] Start: 04-20-2025 Alcohol Comment 1-2 times a year [facility] NEGATED: Highlighted rowStart: BECKY History of tobacco use Passive smoker [facility] Functional Status Date Assessment Result Facility [facility] Clinical Notes 12-23-2021 to 05-24-2025 LINH [...] reflexes: Goyo's absent. Ankle clonus absent. Coordination Crwpwp-rb-brpo, rapid alternating movements and nqcb-oa-xbly normal bilaterally without dysmetria. Gait Casual gait: [...] current management plan documented in this encounter [facility] 05-23-2025 Telephone encount er Note Patient same day canceled due to her foot being in a boot and cannot drive by herself. [facility] 05-23-2025 Miscellaneous Notes Formattin g of this note might be different from the original. Patient same day canceled due to her foot being in a boot and cannot drive by herself. documented in this encounter [facility] 04-20-2025 History of Presen t illness Narrative [...] visit with xra documented in this encounter [facility] 04-14-2025 Evaluation note Diagnosis Chronic renal impairment, [...] stage 3a (HCC) documented in this encounter [facility]-10-2025 Evaluation note* Diagnosis Chronic renal impairment, stage 3a (HCC)- Primary Depression with anxiety Dysthymic disorder Gastroesophageal reflux disease without esophagitis Esophageal reflux Vitamin D deficiency Unspecified vitamin D deficiency Mixed hyperlipidemia BUCK on CPAP Obstructive sleep apnea (adult) (pediatric) Restless legs Restless legs syndrome (RLS) Hyperglycemia Other abnormal glucose Pain in right foot Pain in limb documented in this encounter [facility]-03-2025 History of Present illness Narrative* Robbin Sánchez DPM - 04/06/2025 4:30 PM EDT Celina Gaspar is a 44 y.o. female presents with chief complaint of Foot Ulcer (RT toe 2 ulcer) HPI: HPI Pt has ulcer on RT toe 2 for about 2 wks. She went to [facility] ER on 04-04-25, xrays, culture and put [...] toe or midfoot but also Charcot MRI [facility] 04-11-25 11:30 AM, arrive at 11:00 AM. Pt notified. documented in this encounterCooper County Memorial [id number] Evaluation note* Diagnosis Chronic renal impairment, stage 3a (HCC)- Primary Depression with anxiety Dysthymic disorder Gastroesophageal reflux disease without esophagitis Esophageal reflux Vitamin D deficiency Unspecified vitamin D deficiency Mixed hyperlipidemia BUCK on CPAP Obstructive sleep apnea (adult) (pediatric) Restless legs Restless legs syndrome (RLS) Hyperglycemia Other abnormal glucose Pressure injury of deep tissue of toe, unspecified laterality- Primary documented in this encounter [facility]2025 History of Present illness Narrative* Lynn [...] in about 6 weeks (around 04/25/2025), or RADIOGRAPHER CARDIAC CATHETERIZATION. Lab Frequency Next Occurrence Therapeutic injection carpal [...] Out of bed 0800. Noct oxim PSG ([place]) (BMI=39.1) - AHI=5.3, REM=21 vs 2.8, all supine; PLMI=3.6, PLMAI=0.6 ([place], [place]) - MAINE=6.4, position not given PAPT ([place]) - AHI=1.8 @ 12 with REM; PLMI=0 ([place]) (BMI=38.4) - AHI=4.6 @ 11 [...] ? [address] ? [place], [place] [address] ? ? fax Neurology ? Clinical Neurophysiology ? Epilepsy ? Sleep Disorders ? Clinical Informatics documented in this encounterCooper County Memorial [id number] Evaluation note* Diagnosis Chronic renal impairment, stage [...] Other screening mammogram documented in this encounter [facility]2025 History of Present illness Narrative* Tiffanie [...] Depression: Not at risk (11/15/2024) Received from [facility] PHQ-2 PHQ-9 Total Score: 0 [...] reflexes: Goyo's absent. Ankle clonus absent. Coordination Kwzgdn-qo-rqjq, rapid alternating movements and gpfg-jq-hywn normal bilaterally without dysmetria. Gait Normal casual, toe, heel and tandem gait. Romberg is absent. 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 She continues to have significant discomfort in her feet to interrupt her sleep. This is likely worsened by Jpkgafj-Khswg-Wasgr for which she had surgery in February [...] nasal pillows. She will take this to [facility] in [place]. We will get the original sleep study from [facility] for review. She is following with Dr. Block for sleep medicine. EVALUATION: PSG 03/2024 - CPAP [id number] w/heated humidification EMG of BUE 11/25 showed [...] Hernandez acting under the direction of Tiffanie Csaas MD. The content has been reviewed and confirmed for accuracy by Tiffanie Casas MD documented in this encounterCooper County Memorial [id number] History of Present illness Narrative* Lynn Block [...] on CPAP Orders: Ambulatory referral to Neurology [facility] (obstructive sleep apnea) Submit for warranty replacement [...] vs 2.8, all supine; PLMI=3.6, PLMAI=0.6 ([place], [place]) - MAINE=6.4, position not given PAPT ([place]) [...] in all four extremities, including at least senior master scheduler, finger abductors, biceps, triceps, deltoid, toe flexors [...] Neurology ? [address] ? [place], [place] [address] ? ? fax Neurology ? Clinical Neurophysiology ? Epilepsy ? Sleep Disorders ? Clinical Informatics documented in this encounterCooper County Memorial [id number] Telephone encounter Note* Telephone Encounter - Janel Allen NP - 11/02/2024 9:16 PM EST Pharmacy sends medication clarification for nortriptyline as there are two directions on one received. Per ONUR Gunderson plan increase nortriptyline 50 mg 2 daily/bedtime total of 100 mg. NOMS [id number] Miscellaneous Notes* Telephone Encounter - Janel Allen NP - 11/02/2024 9:16 PM EST Pharmacy sends medication clarification for nortriptyline as there are two directions on one received. Per ONUR Gunderson plan increase nortriptyline 50 mg 2 daily/bedtime total of 100 mg. documented in this encounterCooper County Memorial HospitalJkllgebaon58-04-1466 NoteOPG [address] [facility] (11) [facility] [address] [facility] MEDICAL OFFICE [facility] [address] Dept: [phone] Loc: [phone] MD Celina Browne 44 y.o. female Patient [...] Resource Strain: Medium Risk (05/08/2024) Received from [facility] Overall Financial Resource Strain (CARDIA) Difficulty of Paying Living Expenses: Somewhat hard Food Insecurity: No Food Insecurity (05/08/2024) Received from [facility] Hunger Vital Sign Worried About Running Out of Food in the Last Year: Never true Ran Out of Food in the Last Year: Never true Transportation Needs: Unknown (05/08/2024) Received from [facility] PRAPARE - Transportation Lack of Transportation (Non-Medical): No Housing Stability: Unknown (05/08/2024) Received from [facility] Housing Stability Vital Sign Unstable Housing [...] of submandibular glands, clear salivary flow from Montcalm's ducts, no stones of Felipe's ducts Temporomandibular Joint: no crepitus with motion, no tenderness on palpation, no mayo (more content not included)...[facility] [id number] History of Present illness Narrative* Sherman Adair MD - 10/11/2024 10:05 AM EST OPG [address] CALL (11) [facility] [address] [facility] [address] Dept: [phone] Loc: [phone] MD Celina Browne 44 y.o. female Patient [...] Resource Strain: Medium Risk (05/08/2024) Received from [facility] Overall Financial Resource Strain (CARDIA) Difficulty of Paying Living Expenses: Somewhat hard Food Insecurity: No Food Insecurity (05/08/2024) Received from [facility] Hunger Vital Sign Worried About Running Out of Food in the Last Year: Never true Ran Out of Food in the Last Year: Never true Transportation Needs: Unknown (05/08/2024) Received from [facility] PRAPARE - Transportation Lack of Transportation (Non-Medical): No Housing Stability: Unknown (05/08/2024) Received from [facility] Housing Stability Vital Sign Unstable Housing [...] subma ndibular glands, clear salivary flow from Montcalm's ducts, no stones of Montcalm's ducts Temporomandibular Joint: no crepitus with motion, [...] Hematological: Negative. Psychiatric/Behavioral: Negative. documented in this [id number] Telephone encounter Note* Telephone Encounter - Gwen Fan - 09/14/2024 2:18 PM EST Voicemail Received: Our numbers [phone] actually have a question regarding a prescription that was prescribed today, If someone could please call me back. Thank you. Rosa Isela. [facility] [id number] Miscellaneous Notes* Telephone Encounter - Gwen Fan - 09/14/2024 2:18 PM EST Voicemail Received: Our numbers [phone] actually have a question regarding a prescription that was prescribed today, If someone could please call me back. Thank you. Rosa Isela. documented in this encounterCooper County Memorial [id number] Miscellaneous Notes* Telephone Encounter - My Johnson - 08/11/2024 12:03 PM EST Patient called and requested refill of Lyrica to be sent to [facility] in [place]. documented in this [facility]11-07-2024 Telephone encounter Note* Telephone Encounter - My Johnson - 08/11/2024 12:03 PM EST Patient called and requested refill of Lyrica to be sent to [facility] in [place]. [facility] [id number] History of Present illness Narrative* Tequila LINDSAY [...] Grandfather Depression: At risk (01/28/2024) [facility] PHQ-2 PHQ-9 Total Score: 6 REVIEW [...] reflexes: Goyo's absent. Ankle clonus absent. Coordination Oiqyqu-zc-igay, rapid alternating movements and jsjd-gw-qtbq normal bilaterally without dysmetria. Gait Normal casual, [...] Follow up 3 months. documented in this encounterCooper County Memorial [id number] History of Present illness Narrative* Cheryl Miles [...] was counseled on the risks of stroke, AR, and sudden with BUCK, along with the [...] to clinic: 3-6 months documented in this encounterCooper County Memorial [id number] History of Present illness Narrative* MASSIMO Shook [...] 2022. Shefollows with an outside provider in [place] and was immobilized for an extended period [...] Foot & Ankle Surgery documented in this [id number] NotePROCEDURE: XR ANKLE LT MIN 3 V, [...] Electronically authenticated by: PIPER MERCEDES Date: 2023-01-29 07:05[facility]04-27-2023 NotePROCEDURE: XR ANKLE LT MIN [...] Electronically authenticated by: PIPER MERCEDES Date: 2023-01-29 07:05[facility]10-05-2022 History of Present illness Narrative* [...] BMR: 1573 calories Est. total calorie needs: ~3052-9380 Lab Results Component Value Date/Time TRIG 460 [...] bread Supper: pork chop or chicken, homemade greenlandic fries, mashed, or baked potato with broccoli [...] session duration: 55 minutes. documented in [facility]War[facility] Phone: 1(431) 718-137105-04-2022 History of Present illness Narrative* Christel Donohue, PT - 02/05/2022 9:45 AM EDT [facility] Date: 02/05/2022 Patient Name: Celina Gaspar : 1980 Pt No Showed Appt- Follow up call, left message on voicemail that patient discharged, but to call if has questions or concerns. Chirstel Donohue, PT Date: 02/05/2022 [facility] Phone: [phone]) 386-627105-04-2022 Hospital course Narrative* Christel Donohue, PT - 02/05/2022 9:45 AM EDT Images from the original note were not included. [facility] Out[facility] Therapy Discharge Summary Patient: [...] Donohue, PT Date: 02/05/2022 documented in this [employer] Phone: 1(172) 472-341105-02-2022 History of Present illness Narrative* Jerica Melgar - 02/03/2022 10:30 AM EDT [facility] Date: 02/03/2022 Patient Name: Celina Gaspar : 1980 Pt Cancelled Appt due to no reason for cancel. Jerica Melgar Date: 02/03/2022 documented in this [employer] Phone: [phone] 254-898304-27-2022 History of Present illness Narrative* Beverly Rangel, MEAT SEAFOOD ASSOCIATE - 01/29/2022 9:00 AM EDT Images from the original note were not included. [facility] Daily Note Date: [...] Met Usp Goals - Time Frame for custodial goals : 10 Automobile Rental Representative Goals Time Frame for custodial goals : 10 custodial goal 1: Decrease pain low back 2/10 at worst x3 days for completing normal activities custodial goal 2: Patient to report 50% decrease in radicular symptoms L LE Post Treatment Pain: 5/10 Time In: 0859 Time Out: 0947 Timed Code Treatment Minutes: 48 Minutes Total Treatment Time: 48 Minutes Beverly Rangel, MEAT SEAFOOD ASSOCIATE Date: 01/29/2022 documented in this [facility] Phone: [phone]) 742-291204-25-2022 History of Present illness Narrative* Christel Donohue, PT - 01/27/2022 3:45 PM EDT Images from the original note were not included. [facility] Daily Note Date: 01/27/2022 Patient Name: Celina Gaspar : 1980 (41 y.o.) Referring Practitioner: Liliane Sawyer APRN, LOGISTICIAN Referral Date : 12/19/21 Diagnosis: Lumbar radiculopathy [...] Increase trunk ROM B rotation WFL-Not Met Automobile Rental Representative Goals - Time Frame for custodial goals : 10 Automobile Rental Representative Goals Time Frame for terminal superintendent goals : 10 terminal superintendent goal 1: Decrease pain low back 2/10 at worst x3 days for completing normal activities custodial goal 2: Patient to report 50% decrease in radicular symptoms L LE Post Treatment Pain: 4/10 Time In: 15:50 Time Out : 16:19 Timed Code Treatment Minutes: 34 Minutes Total Treatment Time: 34 Minutes Christel Donohue, PT Date: 01/27/2022 documented in this [facility] Phone: [phone]) 692-240904-22-2022 History of Present illness Narrative* Vanessa Garcia, PT - 01/24/2022 9:45 AM EDT Images from the original note were not included. [facility] Daily Note Date: [...] WFL Usp Goals - Time Frame for custodial goals : 10 Automobile Rental Representative Goals Time Frame for terminal superintendent goals : 10 terminal superintendent goal 1: Decrease pain low back 2/10 at worst x3 days for completing normal activities terminal superintendent goal 2: Patient to report 50% decrease in radicular symptoms L LE Post Treatment Pain: 5/10 Time In: 0952 Time Out: 1030 Timed Code Treatment Minutes: 38 Minutes Total Treatment Time: 38 Minutes Vanessa Garcia, THERESE Date: 01/24/2022 documented in this [facility] Phone: 1(598) 399-800604-20-2022 History of Present illness Narrative* Beverly Rangel, MEAT SEAFOOD ASSOCIATE - 01/22/2022 4:45 PM EDT [facility] Date: 01/22/2022 Patient Name: Celina Gaspar : 1980 Patient did not show up for her appointment. Message left on answering machine with a reminder of her next appointment on Thursday. Beverly Rangel, MEAT SEAFOOD ASSOCIATE Date: 01/22/2022 documented in this [facility] Phone: [phone]) 569-340604-15-2022 History of Present illness Narrative* Beverly Rangel, MEAT SEAFOOD ASSOCIATE - 01/17/2022 10:30 AM EDT Images from the original note were not included. [facility] Daily Note Date: [...] 4: Increase trunk ROM B rotation WFL Automobile Rental Representative Goals - Time Frame for terminal superintendent goals : 10 custodial goal 1: Decrease pain low back 2/10 at worst x3 days for completing normal activities custodial goal 2: Patient to report 50% decrease in radicular symptoms L LE Post Treatment Pain: 5/10 Time In: 1037 Time Out: 1107 Timed Code Treatment Minutes: 30 Minutes Total Treatment Time: 30 Minutes Beverly Rangel PTA Date: 01/17/2022 documented in this [facility] [employer] [facility] Phone: 1(502) 931-365404-11-2022 History of Present illness Narrative* ISAIAH Metzger - 01/13/2022 3:15 PM EDT [facility] Date: 01/13/2022 Patient Name: Celina Gaspar : 1980 Pt Cancelled Appt due to no reason given. Eve GasparPRESTON lazcano/Matthew Date: 01/13/2022 documented in this [facility] Phone: 1(702) [phone] History of Present illness Narrative* Beverly Rangel, MEAT SEAFOOD ASSOCIATE - 01/03/2022 9:45 AM EDT Images from the original note were not included. [facility] Daily Note Date: [...] 4: Increase trunk ROM B rotation WFL Automobile Rental Representative Goals - Time Frame for custodial goals : 10 custodial goal 1: Decrease pain low back 2/10 at worst x3 days for completing normal activities terminal superintendent goal 2: Patient to report 50% decrease in radicular symptoms L LE Post Treatment Pain: 5/10 Time In: 0948 Time Out: 1028 Timed Code Treatment Minutes: 40 Minutes Total Treatment Time: 40 Minutes Beverly Rangel, MEAT SEAFOOD ASSOCIATE Date: 01/03/2022 documented in this [facility] Work Phone: [phone]) 677-969403-29-2022 History of Present illness Narrative* Cheryl Herman, OT - 12/31/2021 9:30 AM EDT Images from the original note were not included. [facility] Daily Note Date: [...] Time Frame for Short term goals: STG=LTG Automobile Rental Representative Goals Time Frame for custodial goals : 12 visits (01/24/2022) custodial goal 1: pt to be indepenent in HEP-MET terminal superintendent goal 2: Pt to demonstrate R wrist flexion to 65 degrees or more in order to engage in daily tasks-MET custodial goal 3: Pt to demonstrate R wrist extension to 60 degrees or more in order to engage in daily tasks-MET terminal superintendent goal 4: Pt to be educated on carpal tunnel do's & dont's in order to prevent further repetitive injury to wrist-MET Timed Code Treatment Minutes: 30 Minutes Time In: 915 Time Out: 945 Timed Coded Minutes: 30 Total Treatment Time: 30 THERESA Houser, OTR/L Date: 12/31/2021 documented in this [facility] [employer] Work Phone: [phone]) [phone] Hospital course Narrative* Cheryl Herman OT - 12/31/2021 9:30 AM EDT Images from the original note were not included. [facility] Discharge Summary Patient: [...] has been provided w/ HEP for continued pinch/senior master scheduler strengthening & stretching. Therapist provided pt with handout on Carpal Tunnel Dos & Dont's to avoid re-injury. Prognosis: Fair Goals Short Term Goals Time Frame for Short term goals: STG=LTG Automobile Rental Representative Goals Time Frame for custodial goals : 12 visits (01/24/2022) custodial goal 1: pt to be indepenent in HEP-MET custodial goal 2: Pt to demonstrate R wrist flexion to 65 degrees or more in order to engage in daily tasks-MET custodial goal 3: Pt to demonstrate R wrist extension to 60 degrees or more in order to engage in daily tasks-MET terminal superintendent goal 4: Pt to be educated on carpal tunnel do's & dont's in order to prevent further repetitive injury to wrist-MET Reason for Discharge [] Poor Follow Through [] Completion of Prescribed Sessions [x] Optimal Function Achieved [] Patient Discharged Self [x] Goals Achieved Comments: Thank you for this referral THERESA Houser, OTR/L Date: 12/31/2021 documented in this [facility] [employer] Work Phone: [phone]) 211-603703-29-2022 History of Present illness Narrative* Christel Donohue, PT - 12/31/2021 8:30 AM EDT Images from the original note were not included. [facility] Evaluation Date: 12/31/2021 Patient: Celina Gaspar : 1980 Referring Practitioner: Liliane Sawyer APRN, LOGISTICIAN Referral Date : 12/19/21 Diagnosis: Lumbar radiculopathy [...] Increase trunk ROM B rotation WFL terminal superintendent goals Time Frame for custodial goals : 10 terminal superintendent goal 1: Decrease pain low back 2/10 at worst x3 days for completing normal activities custodial goal 2: Patient to report 50% decrease in radicular symptoms L LE Patient's Goal: Decrease back pain to complete normal activities Timed Code Treatment Minutes: 15 Minutes Total Treatment Time: 45 Time In: 8:30 Time Out: 9:15 Christel Donohue, PT Date: 12/31/2021 documented in this [facility] Phone: [phone]) [phone] History of Present illness Narrative* Cheryl Herman, OT - 12/30/2021 8:30 AM EDT Images from the original note were not included. [facility] Daily Note Date: [...] Time Frame for Short term goals: STG=LTG Automobile Rental Representative Goals Time Frame for terminal superintendent goals : 12 visits (01/24/2022) terminal superintendent goal 1: pt to be indepenent in HEP-MET custodial goal 2: Pt to demonstrate R wrist flexion to 65 degrees or more in order to engage in daily tasks-MET custodial goal 3: Pt to demonstrate R wrist extension to 60 degrees or more in order to engage in daily tasks-MET custodial goal 4: Pt to be educated on carpal tunnel do's & dont's in order to prevent further repetitive injury to wrist-MET Time In: 835 Time Out: 915 Timed Coded Minutes: 40 Total Treatment Time: 40 THERESA Houser OTR/L Date: 12/30/2021 documented in this [facility] [employer] Work Phone: 1(647) 729-473003-21-2022 History of Present illness Narrative* Cheryl Herman OT - 12/23/2021 8:30 AM EDT Images from the original note were not included. [facility] Evaluation Date: 12/23/2021 [...] completing these mvmts Left Hand Strength - Gantry Crane Operator (lbs) Handle Setting 2: 54#, 50#, 53# (52.3# ave) Left Hand Strength - Pinch (lbs) Lateral: 13.5# Tip: 8# Palmar 3 point: 11# Right Hand Strength - Gantry Crane Operator (lbs) Handle Setting 2: 53#, 54#, [...] Time Frame for Short term goals: STG=LTG terminal superintendent goals Time Frame for custodial goals : 12 visits (01/24/2022) terminal superintendent goal 1: pt to be indepenent in HEP terminal superintendent goal 2: Pt to demonstrate R wrist flexion to 65 degrees or more in order to engage in daily tasks custodial goal 3: Pt to demonstrate R wrist extension to 60 degrees or more in order to engage in daily tasks custodial goal 4: Pt to be educated on carpal tunnel do's & dont's in order to prevent further repetitive injury to wrist Patient's Goal: pt wishes to return to prior function Time In: 830 Time Out: 924 Timed Coded Minutes: 0 Total Treatment Time: 54 THERESA Houser, OTR/L 12/23/2021 documented in this [facility]Smart[facility] Phone: evaluation note* Diagnosis Viral illness Unspecified viral infection, in conditions classified elsewhere and of unspecified site documented in this encounter [employer] Phone: evaluation note* Diagnosis Suspected COVID-19 virus infection documented in this encounter [employer] Phone: evalsvrzjt note* Diagnosis Acute cystitis with hematuria Acute cystitis documented in this encounter [employer] Phone: evaluation note* Diagnosis Difficult or painful urination Dysuria documented in this encounter [employer] Phone: evalolukkm note* Diagnosis Acute cystitis with hematuria Acute cystitis Recurrent UTI Urinary tract infection, site not specified documented in this encounter [employer] Phone: evaluation note* Diagnosis Frequent UTI Urinary tract infection, site not specified Urinary urgency Urgency of urination Urinary frequency documented in this encounter [employer] Phone: evalmeuitv note* Diagnosis Frequent UTI Urinary tract infection, site not specified Urinary urgency Urgency of urination Urinary frequency documented in this encounter [employer] Phone: evalftwejm note* Diagnosis MRSA (methicillin resistant Staphylococcus aureus) septicemia (HCC) Methicillin resistant staphylococcus aureus septicemia documented in this encounter [facility] noteNo assessment information availableMount Carmel Health System Work Phone: Evaluation note* Diagnosis Fatigue, unspecified type Encounter for screening for HIV Mixed hyperlipidemia Hyperglycemia Other abnormal glucose Chronic renal impairment, stage 3b (HCC) documented in this encounter [employer] Phone: evalpecigi note* Diagnosis Acute cystitis with hematuria Acute cystitis documented in this encounter [employer] Phone: evaluation note* Diagnosis Neck mass Swelling, mass, or lump in head and neck documented in this encounter [employer] Phone: evaluation note* Diagnosis Pain of foot, unspecified laterality Closed nondisplaced fracture of second metatarsal bone of left foot, initial encounter Closed nondisplaced fracture of lateral cuneiform of left foot, initial encounter documented in this encounter [employer] Phone: evalpxxkol note* Diagnosis Foreign body (FB) in soft tissue Residual foreign body in soft tissue documented in this encounter [employer] Phone: evaluation note* Diagnosis Pelvic pressure in female Other specified symptom associated with female genital organs documented in this encounter [employer] Phone: evalbrofic note* Diagnosis Charcot arthropathy of midfoot- Primary Gastrocnemius equinus, unspecified laterality Foot pain, left Pain in soft tissues of limb [facility] Diagnosis Mixed hyperlipidemia documented in this encounter [facility]* Diagnosis Idiopathic progressive polyneuropathy Non-seasonal allergic rhinitis due to pollen documented in this encounter [facility]* Diagnosis Thyroid nodule Nontoxic uninodular goiter documented in this encounter [employer] note* Diagnosis Thyroid nodule- Primary Nontoxic uninodular goiter [facility]* Diagnosis BUCK on CPAP- Primary Idiopathic [...] Lipoma of neck [facility]* Diagnosis 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 (CMS/HCC) documented in this encounter [facility]* Diagnosis BUCK on CPAP- Primary Idiopathic progressive polyneuropathy Restless legs Restless legs syndrome (RLS) Intractable 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 (CMS/HCC) documented in this encounter [facility] note* Diagnosis Pre-diabetes Other abnormal glucose Mixed hyperlipidemia [facility] Diagnosis BUCK (obstructive sleep apnea)- Primary Obstructive sleep apnea (adult) (pediatric) BUCK on CPAP Claustrophobia (CMS/HCC) Other isolated or specific phobias documented in this encounter [facility] [...] apnea (adult) (pediatric) documented in this encounter [facility] note* Diagnosis BUCK (obstructive sleep apnea)- Primary Obstructive sleep apnea (adult) (pediatric) BUCK on CPAP Claustrophobia Other isolated or specific phobias BUCK (obstructive sleep apnea)- Primary Obstructive sleep apnea (adult) (pediatric) Claustrophobia Other isolated or specific phobias Hypersomnia Hypersomnia, unspecified documented in this encounter [facility]* Diagnosis BUCK (obstructive sleep [...] Generalized edema Edema documented in this encounter [facility]* Diagnosis BUCK (obstructive sleep [...] foot, initial encounter documented in this encounter [facility]* Diagnosis BUCK (obstructive sleep [...] or radiculitis nos documented in this encounter [facility] HealthcareHospital Discharge instructions* Attachments The following attachments cannot be sent through Care Everywhere. * Diabetic Foot Ulcer (Burundian) [facility] N[facility]* Other (Routine) - Closed Specialty Diagnoses / Procedures Referred By Contac t Referred To Contact Radiology Diagnoses Encounter for screening mammogram for malignant neoplasm of breast Procedures NITA BRIAN DIGITAL SCREEN BILATERAL Back, MD Felipe [address] [place] [address] Phone: tel: fax: Referral ID Status Reason Start Date Expiration Date Visits Re quested Visits Authorized [id number] Closed 01/29/2025 01/29/2026 1 1 [facility] Narrative* Imaging (Emergency) - Pending Review Specialty Diagnoses / Procedures Referred By Contac t Referred To Contact Radiology Diagnoses Pain in right foot Procedures MRI FOOT RIGHT W WO CONTRAST Robbin Sánchez, DPM [address] [facility], [place] [address] Phone: tel: fax: Referral ID Status Reason Start Date Expiration Date V isits Requested Visits Authorized [id number] Pending Review 04/11/2025 04/10/2026 1 1 [facility] [employer] [facility] Summary Purpose Family History No Family History [...] FoundDocuments on File Type Date Recorded Patient Net Software Architect Expl anation Advance Directives and Living Will Power of Rip Saw Operator Latest Code Status on File Code Status Date Activated Date Inactivated Comments Full Code 08/15/2018 4:17 PM 08/25/2018 8:55 PM Full Code 03/19/2017 1:37 PM 03/19/2017 4:32 PM Full Code 03/19/2017 10:57 AM 03/19/2017 1:37 PM Full Code 03/05/2017 12:56 PM 03/05/2017 3:55 PM Full Code 03/05/2017 10:05 AM 03/05/2017 12:56 PM Documents on File Type Date Recorded Patient Net Software Architect Expl anation ACP-Advance Directive ACP-Power of Rip Saw Operator Documents on File Type Date Recorded Patient Net Software Architect Expl anation ACP-Advance Directive ACP-Power of Rip Saw Operator Latest Code Status on File Code Status [...] Everywhere. * Back Care Basics: General Info (Burundian) * Back: Preventing Injuries (Burundian) documented in this encounter Reason for Referral Status Reason Specialty Diagnoses / Procedures Referre d By Contact Referred To Contact Closed Radiology Diagnoses Brachial neuritis Peripheral nerve disorder Spasm of muscle Procedures MR Cervical Spine Without Contrast Tiffanie Casas MD [address] [place] [address] Specialty Diagnoses / Procedures Referred By Contac t Referred To Contact Radiology Diagnoses Neck mass Procedures US HEAD NECK SOFT TISSUE THYROID Felipe Adam MD [address] [place] [address] Referral ID Status Reason Start Date Expiration Date Visits Re quested Visits Authorized [id number] Closed 05/27/2022 05/27/2023 1 1 Specialty Diagnoses / Procedures Referred By Contac t Referred To Contact Radiology Diagnoses Thyroid nodule Procedures US THYROID Jair, MD Felipe [address] [place] [address] Referral ID Status Reason Start Date Expiration Date V isits Requested Visits Authorized [id number] Pending Review 09/06/2024 08/26/2025 1 1 Chief Complaint and Reason for Visit Chief Complaint M54.16 M79.10 M79.60 9 R20.9 Chief Complaint Unknown Additional Source Comments INFORMATION SOURCE (unrecogn ized section and content) DATE CREATED AUTHOR 03/30/2018 [facility] DATE CREATED AUTHOR AUTHOR'S ORGANIZ ATION 03/30/2018 [facility] DATE CREATED AUTHOR AUTHOR'S ORGANIZ ATION 09/15/2018 [facility] DATE CREATED AUTHOR AUTHOR'S ORGANIZ ATION 09/23/2018 [facility] DATE CREATED AUTHOR AUTHOR'S ORGANIZ ATION 09/26/2018 [facility] DATE CREATED AUTHOR AUTHOR'S ORGANIZ ATION 12/10/2018 [facility] DATE CREATED AUTHOR AUTHOR'S ORGANIZ ATION 12/18/[address] [facility] DATE CREATED AUTHOR AUTHOR'S ORGANIZ ATION 02/11/2019 [facility] DATE CREATED AUTHOR AUTHOR'S ORGANIZ ATION 11/30/2021 [facility] DATE CREATED AUTHOR AUTHOR'S ORGANIZ ATION 05/01/2022 [facility] DATE CREATED AUTHOR AUTHOR'S ORGANIZ ATION 01/12/2023 [facility] DATE CREATED AUTHOR AUTHOR'S ORGANIZ ATION 02/15/2023 [facility] DATE CREATED AUTHOR AUTHOR'S ORGANIZ ATION 04/04/2023 [facility] DATE CREATED AUTHOR AUTHOR'S ORGANIZ ATION 02/20/2024 [facility] DATE CREATED AUTHOR AUTHOR'S ORGANIZ ATION [facility] CREATED AUTHOR AUTHOR'S ORGANIZ ATION 02/14/2025 Declan Menjivar [facility] DATE CREATED AUTHOR AUTHOR'S ORGANIZ ATION 05/16/2025 [facility] DATE CREATED AUTHOR AUTHOR'S ORGANIZ ATION 2025 [facility] EPIC Reason for Visit (unrecogniz ed section and content) Reason Comments Sleep Apnea Specialty Diagnoses / Procedures Referred By Thor bernal Referred To Contact Neurology Diagnoses BUCK on CPAP Procedures CO OFFICE/OUTPATIENT NEW HIGH MDM 60 MINUTES Fozia Meng, RADIOGRAPHER CARDIAC CATHETERIZATION [address], [address] [address] Phone: tel: fax: Lynn Block MD [address] [facility] [address] [place] [address] Phone: tel: fax: Referral ID Status Reason Start Date Expiration Date V isits Requested Visits Authorized [id number] Closed Specialty Services Required 11/14/2024 05/13/2025 1 1 Status Reason Specialty Diagnoses / Procedures Referre d By Contact Referred To Contact Closed Radiology Diagnoses Brachial neuritis Peripheral nerve disorder Spasm of muscle Procedures MR Cervical Spine Without Contrast Tiffanie Casas MD [address] [facility] [address] [place] [address] Specialty Diagnoses / Procedures Referred By Contac t Referred To Contact Occupational Therapy Diagnoses Carpal tunnel syndrome Carpal Tunnel Syndrome Procedures Eval and treat Keenan Lozano MD [address] [facility] [address] [place] [address] [facility] [address] [place] [address] Referral ID Status Reason Start Date Expiration Date Visits Re quested Visits Authorized [id number] Open 12/19/2021 12/19/2022 1 1 Specialty Diagnoses / Procedures Referred By Contac t Referred To Contact Physical Therapy Diagnoses Radiculopathy, lumbar region Lumbar Radiculopathy Procedures Eval and treat Janel Allen, CONSTITUTIONAL LAW PROFESSOR - LOGISTICIAN [address] [address] [facility] [address] [place] [address] Referral ID Status Reason Start Date Expiration Date Visits Re quested Visits Authorized [id number] Open 12/19/2021 12/19/2022 1 1 Specialty Diagnoses / Procedures Referred By Contac t Referred To Contact Radiology Diagnoses Neck mass Procedures US HEAD NECK SOFT TISSUE THYROID Back, MD Felipe [address] [place] [address] Referral ID Status Reason Start Date Expiration Date Visits Re quested Visits Authorized [id number] Closed 05/27/2022 05/27/2023 1 1 Specialty Diagnoses / Procedures Referred By Contac t Referred To Contact Radiology Diagnoses Pain of foot, unspecified laterality Closed nondisplaced fracture of lateral cuneiform of left foot, initial encounter Procedures MRI FOOT LEFT W WO CONTRAST MRI FOOT LEFT W WO CONTRAST Robbin Sánchez, DPM [address] [facility], [address] [place] [id number] Referral ID Status Reason Start Date Expiration Date Visits Re quested Visits Authorized [id number] Closed 06/20/2022 06/20/2023 1 1 Reason Comments Education Class Specialty Diagnoses / Procedures Referred By Contac t Referred To Contact Diabetes Services Diagnoses Pre-diabetes Felipe Adam MD [address] [place] [address] [facility] [address] [place] [address] Referral ID Status Reason Start Date Expiration Date V isits Requested Visits Authorized [id number] Open Specialty Services Required 06/30/2022 06/30/2023 2 2 Specialty Diagnoses / Procedures Referred By Contac t Referred To Contact Diabetes Services Diagnoses Pre-diabetes Felipe Adam MD [address] [place] [address] [facility] [address] [place] [address] Reason Comments Other Left foot charcot on -going since 06/2022. New x-rays today. 2nd of opinion. Specialty Diagnoses / Procedures Referred By Contac t Referred To Contact Radiology Diagnoses Thyroid nodule Procedures US THYROID Felipe Adam MD [address] [place] [address] Referral ID Status Reason Start Date Expiration Date V isits Requested Visits Authorized [id number] Pending Review 09/06/2024 08/26/2025 1 1 Reason Onset Date Comments Med Refill 10/05/2024 Reason Comments New Patient FNA - THYROID NODULE Specialty Diagnoses / Procedures Referred By Thor t Referred To Contact Otolaryngology Diagnoses Thyroid nodule Felipe Adam MD [address] [place] [address] Phone: tel: fax: Sherman Adair MD [address] [address] Phone: tel: fax: Referral ID Status Reason Start Date Expiration Date V isits Requested Visits Authorized [id number] Pending Review 09/09/2024 09/09/2025 1 1 Reason [...] Care Teams (unrecognized sec tion and content) Magneto Electrician Relationship Specialty Start Date End Date Back, MD Felipe [address] [place] [address] PCP - General Internal Medicine 11/14/11 Magneto Electrician Relationship Specialty Start Date End Date Back, MD Felipe [address] [place] [address] PCP - General Internal Medicine 11/14/11 Magneto Electrician Relationship Specialty Start Date End Date Back, MD Felipe [address] [place] [address] PCP - General Internal Medicine 11/14/11 Magneto Electrician Relationship Specialty Start Date End Date Back, MD Felipe [address] [place] [address] PCP - General Internal Medicine 11/14/11 Magneto Electrician Relationship Specialty Start Date End Date Back, MD Felipe [address] [place] [address] PCP - General Internal Medicine 11/14/11 Magneto Electrician Relationship Specialty Start Date End Date Back, MD Felipe [address] [place] [address] PCP - General Internal Medicine 11/14/11 Magneto Electrician Relationship Specialty Start Date End Date Back, MD Felipe [address] [place] [address] PCP - General Internal Medicine 11/14/11 Team Status: Inactive Member Role Status Dates NON STAFF Primary Care Provider Active Tiffanie Casas MD Attending Provider Active Team Status: Active Member Role Status Dates NON STAFF Primary Care Provider Active Magneto Electrician Relationship Specialty Start Date End Date Back, MD Felipe [address] [place] [address] PCP - General Internal Medicine 11/14/11 Magneto Electrician Relationship Specialty Start Date End Date Back, MD Felipe [address] [place] [address] PCP - General Internal Medicine 11/14/11 Magneto Electrician Relationship Specialty Start Date End Date Back, MD Felipe [address] [place] [address] PCP - General Internal Medicine 11/14/11 Magneto Electrician Relationship Specialty Start Date End Date Back, MD Felipe [address] [place] [address] PCP - General Internal Medicine 11/14/11 Magneto Electrician Relationship Specialty Start Date End Date Back, MD Felipe [address] [place] [address] PCP - General Internal Medicine 11/14/11 Magneto Electrician Relationship Specialty Start Date End Date Back, MD Felipe [address] [place] [address] PCP - General Internal Medicine 11/14/11 Magneto Electrician Relationship Specialty Start Date End Date Back, MD Felipe [address] [place] [address] PCP - General Internal Medicine 11/14/11 Magneto Electrician Relationship Specialty Start Date End Date Back, MD Felipe [address] [facility], [place] [address] PCP - General Internal Medicine 11/14/11 Magneto Electrician Relationship Specialty Start Date End Date Back, MD Felipe [address] [facility], [place] [address] PCP - General Internal Medicine 03/26/15 Magneto Electrician Relationship Specialty Start Date End Date Back, MD Felipe [address] [facility], [place] [address] PCP - General Internal Medicine 11/14/11 Team Status: Inactive Member Role Status Dates Frances Harris DPM MS Attending Provider Active Start: February 15, 2024 End: February 15, 2024 Magneto Electrician Relationship Specialty Start Date End Date Back, MD Felipe [address] [place] [address] PCP - General Internal Medicine 11/14/11 Magneto Electrician Relationship Specialty Start Date End Date Back, MD Felipe [address] [place] [address] PCP - General Internal Medicine 11/14/11 Magneto Electrician Relationship Specialty Start Date End Date Back, MD Felipe [address] [place] [address] PCP - General Internal Medicine 03/26/15 Magneto Electrician Relationship Specialty Start Date End Date Back, MD Felipe [address] [place] [address] PCP - General Internal Medicine 03/26/15 Magneto Electrician Relationship Specialty Start Date End Date Back, MD Felipe [address] [place] [address] PCP - General Internal Medicine 11/14/11 Magneto Electrician Relationship Specialty Start Date End Date Back, MD Alcides [address] [facility], [place] [address] PCP - General Family Medicine 12/08/24 Magneto Electrician Relationship Specialty Start Date End Date Back, MD Alcides [address] [facility], [place] [address] PCP - General Family Medicine 12/08/24 Magneto Electrician Relationship Specialty Start Date End Date Back, MD Felipe [address] [place] [address] PCP - General Internal Medicine 11/14/11 Magneto Electrician Relationship Specialty Start Date End Date Back, MD Alcides [address] [place] [address] PCP - General Family Medicine 12/08/24 Magneto Electrician Relationship Specialty Start Date End Date Back, MD Felipe [address] [place] [address] PCP - General Internal Medicine 11/14/11 Magneto Electrician Relationship Specialty Start Date End Date Back, MD Alcides [address] [place] [address] PCP - General Family Medicine 12/08/24 Magneto Electrician Relationship Specialty Start Date End Date Back, MD Alcides [address] [facility], [place] [address] PCP - General Family Medicine 12/08/24 Magneto Electrician Relationship Specialty Start Date End Date Back, MD Alcides [address] [place] [id number] PCP - General Family Medicine 12/08/24 Magneto Electrician Relationship Specialty Start Date End Date Back, MD Alcides [address] [facility], [place] [address] PCP - General Family Medicine 12/08/24 Magneto Electrician Relationship Specialty Start Date End Date Back, MD Felipe [address] [facility], [facility] PCP - General Internal Medicine 11/14/11 Magneto Electrician Relationship Specialty Start Date End Date Back, MD Felipe [address] [place] [address] PCP - General Internal Medicine 11/14/11 Magneto Electrician Relationship Specialty Start Date End Date Back, MD Alcides [address] [place] [address] PCP - General Family Medicine 12/08/24 Magneto Electrician Relationship Specialty Start Date End Date Back, MD Felipe [address] [place] [id number] PCP - General Internal Medicine 11/14/11 Magneto Electrician Relationship Specialty Start Date End Date Back, MD Alcides [address] [place] [id number] PCP - General Family Medicine 12/08/24 Magneto Electrician Relationship Specialty Start Date End Date Back, MD Alcides [address] [facility], [facility] PCP - General Family Medicine 12/08/24 Goals [...] BE BASED ON THE PRIMARY CLINICAL RECORDS. [facility]. provides no warranty or guarantee of the accuracy or completeness of information in this document.
== END 2025-05-31 09:51 | disposition home or self-care (01) ==
LOC: WC 09:50
PROVIDERS: PCP Internal Medicine; Visit Provider Podiatrist Foot & Ankle Surgery
DX: E11.621 Type 2 diabetes mellitus with foot ulcer (principal); L97.422 Non-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 with fat layer exposed; L97.515 Non-pressure chronic ulcer of other part of right foot with muscle involvement without evidence of necrosis
CPT/HCPCS: 11042

== ENCOUNTER 2025-06-14 11:14 | Outpatient (OUT) | payer OTHER, SELFPAY ==
--- OUTSIDE RECORDS SUMMARY | 2025-06-14 11:25 | XMS_ITS | CCD ---
Author Organization [facility] Care Team Providers Care Media Reconciliation Specialist Name Role Phone Back, Felipe Unavailable Unavailable DAKSHA KING Unavailable Unavailable SHANICE JUARES Unavailable Unava ilable GHAZOUL, AGYE Unavailable Unavailable GHAZOUL, GAYE Unavailable [...] Care Provider Back, Felipe Primary Care Provider [phone] Back, Felipe Primary Care Provider Unavailabl e Back , Felipe Primary Care Provider Back , Felipe Primary Care Provider Back , Felipe Primary Care Provider [phone] BACK, FELIPE Primary Care Unavailable MUTNAL, AMAR Admitting Unavailable MUTNAL, AMAR Attending Unavailable Back , Felipe Primary Care Provider NON STAFF Primary Care Provider UnavailMD Tiffanie Mixon. Attending Provider Back , Felipe Primary Care Provider [phone] YOON COBB Referring Unavailable BACK, FELIPE Primary Care Unavailable Back , Felipe Primary Care Provider [phone] [place] Attending Unavail able BACK, FELIPE Primary Care Unavailable Back , Felipe Primary Care Provider FRANCES HARRIS Admitting Unavailable FRANCES HARRIS Attending Unavailable FRANCES HARRIS Consulting Unavailable FRANCES HARRIS Admitting Unavailable FRANCES HARRIS Attending Unavailable BANNER, DR PIPER Ackerman Consulting Unavailable FRACNES HARRIS Consulting Unavailable FRANCES HARRIS Admitting Unavailable FRANCES HARRIS Attending Unavailable ITTA BENA, DR EMILY Riojas Consulting Unavailable FRANCES HARRIS Consulting Unavailable Back , Felipe Primary Care Provider BACK, FELIPE Primary Care Unavailable ROBBNI SHOOK II Attending Un available Back , Feilpe Primary Care Provider [phone] INDER Harris Attending Provider Frances Harris Attending Unavailable Frances Harris Admitting Unavailable Unavailable Primary Care Provider Unavailabl e BACK FELIPE Referring Unavailable BACK, FELIPE Primary Care Unavailable BACK, FELIPE Admitting Unavailable SHERMAN ADAIR Attending Unavailable Back , [facility] Primary Care Provider FOZIA MENG Attending Unavailable LYNN BLOCK Attending Unavailable FOZIA MENG Referring Unavailable TIFFANIE CASAS Attending Unavailable LYNN BLOCK Attending Unavailable ROBBIN SÁNCHEZ Attending Unavailabl e ROBBIN SÁNCHEZ Referring Unavailabl e ROBBIN SÁNCHEZ Attending Unavailabl e JENNIE VAN Attending Unavailable VAN, JENNIE Referring Unavailable TIFFANIE CASAS Attending Unavailable FOZIA MENG Attending Unavailable BACK, FELIPE Attending Unavailable BACK, FELIPE Referring Unavailable BACK, FELIPE Primary Care Unavailable ROBBIN SÁNCHEZ Attending Unavailabl e ROBBIN SÁNCHEZ Referring Unavailabl e BACK, FELIPE Primary Care Unavailable JANEL SAMSON Referring Unavailable BACK, FELIPE Primary Care Unavailable BACK, FELIPE Referring Unavailable BACK, FELIPE Primary Care Unavailable BACK, FELIPE Referring Unavailable BACK, FELIPE Primary Care Unavailable BACK, FELIPE Primary Care Unavailable SEVERO CASE Attending Unavailable BACK, FELIPE Primary Care Unavailable FRANCES HARRIS Referring Unavailable BACK, FELIPE Attending Unavailable BACK, FELIPE Referring Unavailable BACK, FELIPE Primary Care Unavailable Allergies Allergy Classification Reported Allergen(s) Allergy Type Date of Onset Reaction(s) Facility (20 sources) Chlorhexidine; Translations: [CHLORHEXIDINE] Drug Allergy 3 [facility] (11 sources) topiramate; Translations: [TOPIRAMATE] Drug Allergy 4 Other (See Comments) [facility] (20 sources) Topiramate Propensity to adverse reactions 4 [facility] (1 source) Chlorhexidine; Translations: [Chlorhexidine Gluconate] Drug Allergy [facility] Repository Medications Current Medications Medication Drug Class(es) [...] needed. Active ALPRAZolam 0.25 mg oral tablet (19 sources) Benzodiazepine Start: 03-14-2025 take 1 tablet [...] Active calcium carbonate 500 mg oral tablet (14 sources) take 1 tablet by mouth twice daily calcium carbonate (OSCAL) 500 MG TABS tablet Take 1 tablet by mouth 2 times daily Active calcium carbonat e (CALCIUM 500 ORAL) Take by mouth . Active calcium carbonat e (CALCIUM 500 ORAL) Take by mouth . 0 Active cephalexin 250 mg oral capsule (16 sources) Cephalosporin Antibacterial Start: 08-13-2023 End: 06-10-2024 take 1 capsule by mouth once daily as needed for urinary tract infection cephALEXin (KEFLEX) 250 MG capsule Indications: Frequent UTI Take 1 capsule by mouth daily as needed (post-coital UTI prophylaxis) 30 capsule 1 08/13/2023 Active Start: 08-07-2022 take 1 capsule by mo [facility] once daily as needed for urinary tract [...] mouth. Active clindamycin 300 mg oral capsule (13 sources) Lincosamide Antibacterial Start: 04-04-2025 End: 04-18-2025 clindamycin (CLEOCIN) 300 MG capsule 04/13/2025 Active Start: 07-26-2019 clindamycin (C LEOCIN) 150 MG capsule cyclobenzaprine hydrochloride 5 mg oral tablet (16 sources) Muscle Relaxant take 0.5 tablet by mouth once daily cyclobenzaprine (FLEXERIL) 5 MG tablet Take 5 mg by mouth nightly 1/2 tablet every night 0 Active dapagliflozin 10 mg oral tablet (4 sources) Sodium-Glucose Cotransporter 2 Inhibitor Start: take 1 [...] oral tablet (1 source) alpha-Adrenergic Agonist, Uncompetitive C-cqujic-W-aspartate Receptor Antagonist, Sigma-1 Agonist Start: End: take 1 tablet by mouth every six hours as needed Kjbyiacevxydpol-UJ-BF (CAPMIST DM) 60-15-400 MG TABS Take 1 [...] sources) Serotonin and Norepinephrine Reuptake Inhibitor Start: DULoxetine (CYMBALTA) 30 MG extended release capsule [...] 0 Active linaclotide 0.145 mg oral capsule (9 sources) Guanylate Cyclase-C Agonist Start: 05-09-2024 take [...] (BMI) of 38.0 to 38.9 in adult ([facility]) Take 1 tablet by mouth [...] (BMI) of 40.0 to 44.9 in adult ([facility]) Take 1 capsule by mouth [...] Start: 08-25-2018 take 1 capsule by mo [facility] three times daily pregabalin (LYRICA) 150 MG capsule Indications: Epidural abscess , Discitis of thoracic region , Infection of thoracic spine ([facility]) , Peripheral polyneuropathy Take 1 [...] Start: 07-30-2020 take 2 tablets by mo [facility] once daily sertraline (ZOLOFT) 100 MG tablet Take 2 tablets by mouth daily Currently decreasing this medication 07/30/2020 Active Start: 07-30-2020 take 1 tablet by [facility] daily sertraline (ZOLOFT) 100 MG tablet Take 100 mg by mouth daily Currently decreasing this medication 0 07/30/2020 Active Start: 07-06-2019 take 2 tablets by mo [facility] once daily sertraline (ZOLOFT) 50 MG tablet [...] Onset: 4 07-05-2019 Chronic Chronic kidney disease (16 sources) Chronic renal insufficiency; Translations: [Chronic kidney [...] tissue damage of other site] Onset: 5 Urinary tract infections (20 sources) Acute cystitis; Translations: [Acute cystitis with hematuria] Onset: 8 Episodic Viral infection (1 source) Viral disease; Translations: [...] of skin] Onset: 02-05-2018 08-03-2017 Episodic Other [employer] infection and poliomyelitis (20 sources) Extradural and [...] Translations: [Insomnia, unspecified] Onset: 03-08-2023 03-08-2023 Episodic Unclassified (1 source) Patient encounter status 02-15-2025 Results Test Name Value Interpretation Reference Range Facility Creatinine, Random Urineon 0 06-12-2025 Creatinine (U) [Mass/Vol] 52.4 mg/dL 28.0 - 217.0 mg/dL [facility] Comment on above: Reference range defi radha for 1st morning urine Creatinine,Random Uron 06-12 Creatinine [Mass/Vol] 52.4 mg/dL Normal 28.0-217.0 [facility] Comment on above: Result Comment: Refe rence range defined for 1st morning urine Performed By: #### U RTP, URCRE, PTHNCA, VD25 ####[facility] [address] [place], [place] [id number] Lab Director: Placido Pierce MD#### RENP ####[facility] [address] [place], [place] [id number] Lab Director: Emily George MD No Panel Informationon 06-12 [facility] PTH, Intacton 06-12-2025 Parathyrin.intact [Mass/Vol] 40.0 pg/mL 17.9 - 58.6 pg/mL [facility] PTH, Intact 40.0 pg/mL Normal 17.9-58.6 [facility] Comment on above: Performed By: #### U RTP, URCRE, PTHNCA, VD25 ####[facility] [address] [place], [place] [id number] Lab Director: Placido Pierce MD#### RENP ####[facility] [address] [place], [place] [id number] lab Director: Emily George MD Protein, urine, randomon Protein (U) [Mass/Vol] mg/dL mg/dL [facility] Comment on above: No normal range esta blished. Protein,Tot,Paterson Uron 2024 Tot Prot. Conc. <4 Normal [facility] Comment on above: Result Comment: No n ormal range established. Performed By: #### U RTP, URCRE, PTHNCA, VD25 ####[facility] [address] [place], [place] [id number] lab Director: Placido Pierce MD#### RENP ####[facility] [address] [place], [place] [id number] lab Director: Emily George MD Renal Function Panelon 06-12 Albumin [Mass/Vol] 4.2 g/dL 3.5 - 5.2 g/dL [facility] Anion gap [Moles/Vol] 12 mmol/L 9 - 17 mmol/L [facility] Calcium [Mass/Vol] 9.2 mg/dL 8.6 - 10. 4 mg/dL [facility] Chloride [Moles/Vol] 99 mmol/L 98 - 10 7 mmol/L [facility] CO2 [Moles/Vol] 24 mmol/L 20 - 31 mmol/L [facility] Creatinine [Mass/Vol] 1.3 mg/dL High 0.5 - 0.9 mg/dL [facility] Est, Glom Filt Rate 51 Low - PINF [facility] Comment on above: These results are not [...] that affects renal tubular secretion. Glucose [Mass/Vol] 110 mg/dL High 70 - 99 mg/dL [facility] Interpretation and review of laboratory results Abnormal [facility] Phosphate [Mass/Vol] 3.9 mg/dL 2.6 - 4 .5 mg/dL [facility] Potassium [Moles/Vol] 4.5 mmol/L 3.7 - 5.3 mmol/L [facility] Sodium [Moles/Vol] 135 mmol/L 135 - 144 mmol/L [facility] Urea nitrogen [Mass/Vol] 23 mg/dL High 6 - 20 mg/dL [facility] Albumin [Mass/Vol] 4.2 g/dL Normal 3.5-5.2 [facility] Comment on above: Performed By: #### U RTP, URCRE, PTHNCA, VD25 ####[facility] [address] [place] [address] Lab Director: Placido Pierce MD#### RENP ####[facility] [address] [place] [address] Lab Director: Emily George MD Anion gap [Moles/Vol] 12 mmol/L Normal 9-17 [facility] Comment on above: Performed By: #### U RTP, URCRE, PTHNCA, VD25 ####[facility] [address] [place], [place] [id number] Lab Director: Palcido Pierce MD#### RENP ####[facility] [address] [place] [address] Lab Director: Emily George MD Calcium [Mass/Vol] 9.2 mg/dL Normal 8.6-10.4 [facility] Comment on above: Performed By: #### U RTP, URCRE, PTHNCA, VD25 ####[facility] [address] [place], [place] [id number] Lab Director: Placido Pierce MD#### RENP ####[facility] [address]17[address] [place] [address] Lab Director: Emily George MD Chloride [Moles/Vol] 99 mmol/L Normal 98-107 [facility] Comment on above: Performed By: #### U RTP, URCRE, PTHNCA, VD25 ####[facility] [address] [place], [place] [address])[phone] Director: Placido Pierce MD#### RENP ####[facility] [address] [place] [address]([facility])[phone] Director: Emily George MD CO2 [Moles/Vol] 24 mmol/L Normal 20-31 [facility] Comment on above: Performed By: #### U RTP, URCRE, PTHNCA, VD25 ####[address] [place] [address] Lab Director: Placido Pierce MD#### RENP ####[facility] [address] [place] [address] Lab Director: Emily George MD Creatinine [Mass/Vol] 1.3 mg/dL High 0.5-0.9 [facility] Comment on above: Performed By: #### U RTP, URCRE, PTHNCA, VD25 ####[address] [address] Lab Director: Placido Pierce MD#### RENP ####[facility] [address] [place] [id number] Lab Director: Emily George MD GFR/1.73 sq M.predicted among non-blacks MDRD (S/P/Bld) [Vol rate/Area] 51 mL/min/{1.73_m2} Low >60 [facility] Comment on above: Result Comment: These [...] renal tubular secretion. Performed By: #### U RTP, URCRE, PTHNCA, VD25 ####[facility] [address] [place] [address] Lab Director: Placido Pierce MD#### RENP ####[facility] [address] [place], [place] [address])[phone] Director: Emily George MD Glucose [Mass/Vol] 110 mg/dL High 70-99 [facility] Comment on above: Performed By: #### U RTP, URCRE, PTHNCA, VD25 ####[address] [address])[phone] Director: Placido Pierce MD#### RENP ####[facility] [address] [place], [place] [address])[phone] Director: Emily George MD Phosphorus, Inorg. 3.9 mg/dL Normal 2.6-4.5 [facility] Comment on above: Performed By: #### U RTP, URCRE, PTHNCA, VD25 ####[facility] [address] [place] [address] Lab Director: Placido Pierce MD#### RENP ####[facility] [address] [place], [place] [address])[phone] Director: Emily George MD Potassium [Moles/Vol] 4.5 mmol/L Normal 3.7-5.3 [facility] Comment on above: Performed By: #### U RTP, URCRE, PTHNCA, VD25 ####[facility] [address] [place] [address] lab Director: Placido Pierce MD#### RENP ####[facility] [address] [place] [address] lab Director: Emily George MD Sodium [Moles/Vol] 135 mmol/L Normal 135-144 [facility] Comment on above: Performed By: #### U RTP, URCRE, PTHNCA, VD25 ####[facility] [address] [place] [address] lab Director: Placido Pierce MD#### RENP ####[facility] [address] [place], [place] [phone] lab Director: Emily George MD Urea nitrogen [Mass/Vol] 23 mg/dL High 6-20 [facility] Comment on above: Performed By: #### U RTP, URCRE, PTHNCA, VD25 ####[address] [address] lab Director: Placido Pierce MD#### RENP ####[facility] [address] [place] [address] lab Director: Emily George MD Vitamin D 25 Hydroxyon 06-12 25-hydroxyvitamin D3 [Mass/Vol] 29.2 ng/mL Low 30.0 - 100.0 ng/mL [facility] Comment on above: Reference Range: Vitamin D status Range Deficiency <20 ng/mL Mild Deficiency 20-30 ng/mL Sufficiency 30-100 ng/mL Toxicity >100 ng/mL Interpretation and review of laboratory results Abnormal [facility] Vitamin D 25 OHon 06-12-2025 Vitamin D 25 [place] 29.2 ng/mL Low 30.0-100.0 [facility] Comment on above: Result Comment: Reference Range: Vitamin D status Range Deficiency <20 ng/mL Mild Deficiency 20-30 ng/mL Sufficiency 30-100 ng/mL Toxicity >100 ng/mL Performed By: #### U RTP, URCRE, PTHNCA, VD25 ####[facility] [address] [place] [address] Lab Director: Placido Pierce MD#### RENP ####[facility] [address] [place], [place] [phone] lab Director: Emily George MD XR CERVICAL SPINE COMPLETE 4 -5 VIEWSon [...] [Moles/Vol] 12 mmol/L 9 - 17 mmol/L [facility] Marley Spoon Calcium [Mass/Vol] 9.3 mg/dL 8.6 - 10. 4 mg/dL [facility] Chloride [Moles/Vol] 104 mmol/L 98 - 10 7 mmol/L [facility] CO2 [Moles/Vol] 22 mmol/L 20 - 31 mmol/L [facility] Creatinine [Mass/Vol] 1.3 mg/dL High 0.5 - 0.9 mg/dL [facility] Est, Glom Filt Rate 52 Low - PINF [facility] Comment on above: These results are not [...] 131 mg/dL High 70 - 99 mg/dL [facility] Potassium [Moles/Vol] 4.4 mmol/L 3.7 - 5.3 mmol/L [facility] Sodium [Moles/Vol] 138 mmol/L 135 - 144 mmol/L [facility] Urea nitrogen [Mass/Vol] 17 mg/dL 6 - 20 mg/dL [facility] Basic Metabolic Profon 05-15 Anion gap [Moles/Vol] 12 mmol/L Normal 9-17 [facility] Comment on above: Performed By: #### S ED, MORPHX, CRP, BMP, CBC ####[facility] [address]j25[address] [place], [place] [phone] lab Director: Emily George MD Calcium [Mass/Vol] 9.3 mg/dL Normal 8.6-10.4 [facility] Comment on above: Performed By: #### S ED, MORPHX, CRP, BMP, CBC ####[facility] [address] [place] [address] lab Director: Emily George MD Chloride [Moles/Vol] 104 mmol/L Normal 98-107 [facility] Comment on above: Performed By: #### S ED, MORPHX, CRP, BMP, CBC ####[facility] [address] RdHarrington [place] [address] lab Director: Emily George MD CO2 [Moles/Vol] 22 mmol/L Normal 20-31 [facility] Comment on above: Performed By: #### S ED, MORPHX, CRP, BMP, CBC ####[facility] [address] [place] [address] lab Director: Emily George MD Creatinine [Mass/Vol] 1.3 mg/dL High 0.5-0.9 [facility] Comment on above: Performed By: #### S ED, MORPHX, CRP, BMP, CBC ####[facility] [address] [place] [address] lab Director: Emily George MD GFR/1.73 sq M.predicted among non-blacks MDRD (S/P/Bld) [Vol rate/Area] 52 mL/min/{1.73_m2} Low >60 [facility] Comment on above: Result Comment: These [...] affects renal tubular secretion. Performed By: #### S ED, MORPHX, CRP, BMP, CBC ####[facility] [address] [place] [address] lab Director: Emily George MD Glucose [Mass/Vol] 131 mg/dL High 70-99 [facility] Comment on above: Performed By: #### S ED, MORPHX, CRP, BMP, CBC ####[facility] Yqr28[address] [place] [address] lab Director: Emily George MD Potassium [Moles/Vol] 4.4 mmol/L Normal 3.7-5.3 [facility] Comment on above: Performed By: #### S ED, MORPHX, CRP, BMP, CBC ####[facility] [address]ex[address] [place] [address] lab Director: Emily George MD Sodium [Moles/Vol] 138 mmol/L Normal 135-144 [facility] Comment on above: Performed By: #### S ED, MORPHX, CRP, BMP, CBC ####[facility] [address] [place] [address] lab Director: Emily George MD Urea nitrogen [Mass/Vol] 17 mg/dL Normal 6-20 [facility] Comment on above: Performed By: #### S ED, MORPHX, CRP, BMP, CBC ####[facility] [address]pq[address] [place] [address] lab Director: Emily George MD C-Reactive Proteinon CRP High sensitivity method [Mass/Vol] 6.2 mg/L High 0.0 - 5.0 mg/L [facility] CRP [Mass/Vol] 6.2 mg/L High 0.0-5.0 [facility] Comment on above: Performed By: #### S ED, MORPHX, CRP, BMP, CBC ####[facility] [address] [place] [address] lab Director: Emily George MD CBCon 05-15-2025 Erythrocyte distribution width (RBC) [Ratio] 19.4 % High 12.1 - 15.2 % [facility] Hematocrit (Bld) [Volume fraction] 32.3 % Low 36.0 - 46.0 % [facility] Hemoglobin (Bld) [Mass/Vol] 9.9 g/dL Low 12.0 - 16.0 g/dL [facility] Interpretation and review of laboratory results Abnormal [facility] MCH (RBC) [Entitic mass] 28.0 pg 26.0 - 34.0 pg [facility] MCHC (RBC) [Mass/Vol] 30.7 g/dL Low 31.0 - 37.0 g/dL [facility] MCV (RBC) [Entitic vol] 91.2 fL 80.0 - 100.0 fL [facility] Platelet mean volume (Bld) [Entitic vol] 11.7 fL 6.0 - 12.0 fL [facility] Platelets (Bld) [#/Vol] 154 10*3/uL [facility] RBC (Bld) [#/Vol] 3.54 10*6/uL Low 4.00 - 5.2 0 m/uL [facility] WBC other (Bld) [#/Vol] 3.8 [facility] Erythrocyte distribution width (RBC) [Ratio] 19.4 % High 12.1-15.2 [facility] Comment on above: Performed By: #### S ED, MORPHX, CRP, BMP, CBC ####[facility] [address] [place] [address] Lab Director: Emily George MD Hematocrit (Bld) [Volume fraction] 32.3 % Low 36.0-46.0 [facility] Comment on above: Performed By: #### S ED, MORPHX, CRP, BMP, CBC ####[facility] [address] [place] [address] Lab Director: Emily George MD Hemoglobin (Bld) [Mass/Vol] 9.9 g/dL Low 12.0-16.0 [facility] Comment on above: Performed By: #### S ED, MORPHX, CRP, BMP, CBC ####[facility] [address] [place] [address] Lab Director: Emily George MD MCH (RBC) [Entitic mass] 28.0 pg Normal 26.0-34.0 [facility] Comment on above: Performed By: #### S ED, MORPHX, CRP, BMP, CBC ####[facility] [address] [place] [address] Lab Director: Emily George MD MCHC (RBC) [Mass/Vol] 30.7 g/dL Low 31.0-37.0 [facility] Comment on above: Performed By: #### S ED, MORPHX, CRP, BMP, CBC ####[facility] [address] [place] [address] Lab Director: Emily George MD MCV (RBC) [Entitic vol] 91.2 fL Normal 80.0-100.0 [facility] Comment on above: Performed By: #### S ED, MORPHX, CRP, BMP, CBC ####[facility] [address] [place] [address] Lab Director: Emily George MD Platelet mean volume (Bld) [Entitic vol] 11.7 fL Normal 6.0-12.0 [facility] Comment on above: Performed By: #### S ED, MORPHX, CRP, BMP, CBC ####[facility] [address] [place] [address] Lab Director: Emily George MD Platelets (Bld) [#/Vol] 154 10*3/uL Normal 140-450 [facility] Comment on above: Performed By: #### S ED, MORPHX, CRP, BMP, CBC ####[facility] [address] [place], [place] [id number] Director: Emily George MD RBC (Bld) [#/Vol] 3.54 10*6/uL Low 4.00-5.20 [facility] Comment on above: Performed By: #### S ED, MORPHX, CRP, BMP, CBC ####[facility] [address] [place], [place] [id number] Director: Emily George MD WBC (Bld) [#/Vol] 3.8 10*3/uL Normal 3.5-11.0 [facility] Comment on above: Performed By: #### S ED, MORPHX, CRP, BMP, CBC ####[facility] [address] [place] [address] Lab Director: Emily George MD MORPHOLOGY CHECKon 5 Morphology Rehan (Bld) [Interp] MODERATE ANISOCYTOSIS [facility] Morphology Checkon 5 Morphology Rehan (Bld) [Interp] MODERATE Normal [facility] Comment on above: Result Comment: ANIS OCYTOSIS Performed By: #### S ED, MORPHX, CRP, BMP, CBC ####[facility] [address] [place], [place] [phone] Director: Emily George MD No Panel Informationon 05-15 Interpretation and review of laboratory results Abnormal [facility] Sedimentation Rateon 025 Sedimentation Rate 19 mm/Hr Normal 0-20 [facility] Comment on above: Performed By: #### S ED, MORPHX, CRP, BMP, CBC ####[facility] [address] [place], [place] [id number])[phone] Director: Emily George MD ESR Photometric method (Bld) [Velocity] 19 [facility] Comp Metabolic Profon 2024 Albumin [Mass/Vol] 4.2 g/dL Normal 3.5-5.2 [facility] Comment on above: Performed By: #### L IPR, GLYHGB #### [facility] [address] [place] [address] Manager It Security: Placido Pierce MD #### CP #### [facility] [address] [place] [address] Manager [employer] Security: Emily George MD #### INSU #### [facility] [address] [place] [address] Manager [employer] Security: Placido Pierce MD [facility] [address] [place] [address] Manager It Security: Emily George MD Albumin/Glob Ratio 1.4 Normal 1.0-2.5 [facility] Comment on above: Performed By: #### L IPR, GLYHGB #### [facility] [address] [place] [address] Manager It Security: Placido Pierce MD #### CP #### [facility] [address] [place] [address] Manager It Security: Emily George MD #### INSU #### [facility] [address] [place] [address] Manager It Security: Placido Pierce MD [facility] [address] [place] [address] Manager It Security: Emily George MD Alkaline Phos 109 U/L High 35-104 [facility] Comment on above: Performed By: #### L IPR, GLYHGB #### [facility] [address] [place] [address] Manager It Security: Placido Pierce MD #### CP #### [facility] [address] [place] [address] Manager It Security: Emily George MD #### INSU #### [address] [address] Manager It Security: Placido Pierce MD [facility] [address] [place] [address] Manager It Security: Emily George MD ALT [Catalytic activity/Vol] 23 U/L Normal 5-33 [facility] Comment on above: Performed By: #### L IPR, GLYHGB #### [address] [address] Manager It Security: Placido Pierce MD #### CP #### [facility] [address] [place] [address] Manager It Security: Emily George MD #### INSU #### [facility] [address] [place] [address] Manager It Security: Placido Pierce MD [facility] [address] [place] [address] Manager It Security: Emily George MD Anion gap [Moles/Vol] 14 mmol/L Normal 9-17 [facility] Comment on above: Performed By: #### L IPR, GLYHGB #### [facility] [address] [place] [address] Manager It Security: Placido Pierce MD #### CP #### [facility] [address] [place] [address] Manager It Security: Emily George MD #### INSU #### [address] [address] Manager It Security: Placido Pierce MD [facility] [address] [place] [address] Manager It Security: Emily George MD AST [Catalytic activity/Vol] 22 U/L Normal <32 [facility] Comment on above: Performed By: #### L IPR, GLYHGB #### [address] [address] Manager It Security: Placido Pierce MD #### CP #### [facility] [address] [place] [address] Manager It Security: Emily George MD #### INSU #### [address] [address] Manager It Security: Placido Pierce MD [facility] [address] [place] [address] Manager It Security: Emily George MD Bilirubin [Mass/Vol] 0.5 mg/dL Normal 0.3-1.2 [facility] Comment on above: Performed By: #### L IPR, GLYHGB #### [address] [address] Manager It Security: Placido Pierce MD #### CP #### [facility] [address] [place] [address] Manager It Security: Emily George MD #### INSU #### [facility] [address] [place] [address] Manager It Security: Placido Pierce MD [facility] [address] [place] [address] Manager It Security: Emily George MD Calcium [Mass/Vol] 9.4 mg/dL Normal 8.6-10.4 [facility] Comment on above: Performed By: #### L IPR, GLYHGB #### [address] [address] Manager It Security: Placido Pierce MD #### CP #### [facility] [address] [place] [address] Manager It Security: Emily George MD #### INSU #### [address] [address] Manager It Security: Placido Pierce MD [facility] [address] [place] [address] Manager It Security: Emily George MD Chloride [Moles/Vol] 99 mmol/L Normal 98-107 [facility] Comment on above: Performed By: #### L IPR, GLYHGB #### [address] [address] Manager It Security: Placido Pierce MD #### CP #### [facility] [address] [place] [address] Manager It Security: Emily George MD #### INSU #### [address] [address] Manager It Security: Placido Pierce MD [facility] [address] [place] [address] Manager It Security: Emily George MD CO2 [Moles/Vol] 26 mmol/L Normal 20-31 [facility] Comment on above: Performed By: #### L IPR, GLYHGB #### [facility] [address] [place] [address] Manager It Security: Placido Pierce MD #### CP #### [facility] [address] [place] [address] Manager It Security: Emily George MD #### INSU #### [facility] [address] [place] [address] Manager It Security: Placido Pierce MD [facility] [address] [place] [address] Manager It Security: Emily George MD Creatinine [Mass/Vol] 1.4 mg/dL High 0.5-0.9 [facility] Comment on above: Performed By: #### L IPR, GLYHGB #### [facility] [address] [place] [address] Manager It Security: Placido Pierce MD #### CP #### [facility] [address] [place] [address] Manager It Security: Emily George MD #### INSU #### [address] [address] Manager It Security: Placido Pierce MD [facility] [address] [place] [address] Manager It Security: Emily George MD GFR/1.73 sq M.predicted among non-blacks MDRD (S/P/Bld) [Vol rate/Area] 47 mL/min/{1.73_m2} Low >60 [facility] Comment on above: Result Comment: These [...] Performed By: #### L IPR, GLYHGB #### [facility] [address] [place] [address] Manager It Security: Placido Pierce MD #### CP #### [facility] [address] [place] [address] Manager It Security: Emily George MD #### INSU #### [facility] [address] [place] [address] Manager It Security: Placido Pierce MD [facility] [address] [place] [address] Manager It Security: Emily George MD Glucose [Mass/Vol] 114 mg/dL High 70-99 [facility] Comment on above: Performed By: #### L IPR, GLYHGB #### [address] [address] Manager It Security: Placido Pierce MD #### CP #### [facility] [address] [place] [address] Manager It Security: Emily George MD #### INSU #### [address] [address] Manager It Security: Placido Pierce MD [facility] [address] [place] [address] Manager It Security: Emily George MD Potassium [Moles/Vol] 4.1 mmol/L Normal 3.7-5.3 [facility] Comment on above: Performed By: #### L IPR, GLYHGB #### [facility] [address] [place] [address] Manager It Security: Placido Pierce MD #### CP #### [facility] [address] [place] [address] Manager It Security: Emily George MD #### INSU #### [address] [address] Manager It Security: Placido Pierce MD [facility] [address] [place] [address] Manager It Security: Emily George MD Protein [Mass/Vol] 7.2 g/dL Normal 6.4-8.3 [facility] Comment on above: Performed By: #### L IPR, GLYHGB #### [address] [address] Manager It Security: Placido Pierce MD #### CP #### [facility] [address] [place] [address] Manager It Security: Emily George MD #### INSU #### [address] [address] Manager It Security: Placido Pierce MD [facility] [address] [place] [address] Manager It Security: Emily George MD Sodium [Moles/Vol] 139 mmol/L Normal 135-144 [facility] Comment on above: Performed By: #### L IPR, GLYHGB #### [address] [address] Manager It Security: Placido Pierce MD #### CP #### [facility] [address] [place] [address] Manager It Security: Emily George MD #### INSU #### [address] [address] Manager It Security: Placido Pierce MD [facility] [address] [place] [address] Manager It Security: Emily George MD Urea nitrogen [Mass/Vol] 18 mg/dL Normal 6-20 [facility] Comment on above: Performed By: #### L IPR, GLYHGB #### [address] [place], [place] [phone] Manager It Security: Placido Pierce MD #### CP #### [facility] [address] [place], [place] [address] Manager It Security: Emily George MD #### INSU #### [facility] [address] [place], [place] [phone] Manager It Security: Placido Pierce MD [facility] [address] [place], [place] [phone] Manager It Security: Emily George MD Comprehensive Metabolic Pane [facility] 04-14-2025 Albumin [Mass/Vol] 4.2 g/dL 3.5 - 5.2 g/dL [facility] Albumin/Globulin [Mass ratio] 1.4 {ratio} 1.0 - 2.5 [facility] ALP [Catalytic activity/Vol] 109 U/L High 35 - 104 U/L [facility] ALT [Catalytic activity/Vol] 23 U/L 5 - 33 U/L [facility] Anion gap [Moles/Vol] 14 mmol/L 9 - 17 mmol/L [facility] AST [Catalytic activity/Vol] 22 U/L NINF - 32 U/L [facility] Bilirubin [Mass/Vol] 0.5 mg/dL 0.3 - 1 .2 mg/dL [facility] Calcium [Mass/Vol] 9.4 mg/dL 8.6 - 10. 4 mg/dL [facility] Chloride [Moles/Vol] 99 mmol/L 98 - 10 7 mmol/L [facility] CO2 [Moles/Vol] 26 mmol/L 20 - 31 mmol/L [facility] Creatinine [Mass/Vol] 1.4 mg/dL High 0.5 - 0.9 mg/dL [facility] Est, Glom Filt Rate 47 Low - PINF [facility] Comment on above: These results are not [...] 114 mg/dL High 70 - 99 mg/dL [facility] Interpretation and review of laboratory results Abnormal [facility] Potassium [Moles/Vol] 4.1 mmol/L 3.7 - 5.3 mmol/L [facility] Protein [Mass/Vol] 7.2 g/dL 6.4 - 8.3 g/dL [facility] Sodium [Moles/Vol] 139 mmol/L 135 - 144 mmol/L [facility] Urea nitrogen [Mass/Vol] 18 mg/dL 6 - 20 mg/dL [facility] Hemoglobin A1Con 04-14-2025 Average glucose Estimated from glycated hemoglobin (Bld) [Mass/Vol] 123 mg/dL [facility] Comment on above: The ADA and AACC rec ommend providing the estimated average glucose result to permit better patient understanding of their HBA1c result. HbA1c (Bld) [Mass fraction] 5.9 % 4.0 - 6.0 % [facility] Glucose [Mass/Vol] 123 mg/dL Normal [facility] Comment on above: Result Comment: The ADA and AACC recommend providing the estimated average glucose result to permit better patient understanding of their HBA1c result. Performed By: #### L IPR, GLYHGB ####[facility] [address] [place] [address] Lab Director: Placido Pierce MD#### CP ####[facility] [address] [place], [place] [phone] Lab Director: Emily George MD#### INSU ####[facility] [place] [address] Lab Director: [facility] [address], [place] [phone] Lab Director: Emily George MD HbA1c (Bld) [Mass fraction] 5.9 % Normal 4.0-6.0 [facility] Comment on above: Performed By: #### L IPR, GLYHGB ####[facility] [address] [place], [place] [phone] Director: Placido Pierce MD#### CP ####[facility] [address] [place], [place] [phone] Director: Emily George MD#### INSU ####[address] [place], [place] [phone] Director: Placido Pierce, [facility] [address] [place], [place] [phone])[phone] Director: Emily George MD Insulinon 04-14-2025 Insulin 25.0 mU/L Normal [facility] Comment on above: Performed By: #### L IPR, GLYHGB ####[facility] [address] [place], [place] [phone] Director: Placido Pierce MD#### CP ####[facility] [address] [place], [place] [phone])[phone] Director: Emily George MD#### INSU ####[address] [place], [place] [phone] Director: Placido Pierce, [facility] [address] [place], [place] [phone] Director: Emily George MD Reference Range Normal [facility] Comment on above: Result Comment: Fast in.6-24.9 30 min: 20-112 60 min: 29-88 90 min: 26-84 120 min: 22-79 Performed By: #### L IPR, GLYHGB ####[facility] [address] [place], [place] [phone] Director: Placido Pierce MD#### CP ####[facility] [address] [place] [address] Lab Director: Emily George MD#### INSU ####[facility] [place] [address] Lab Director: [facility] [address] [place] [address] Lab Director: Emily George MD Collection Info. FASTING Normal [facility] Comment on above: Performed By: #### L IPR, GLYHGB ####[facility] [place] [address] Lab Director: Placido Pierce MD#### CP ####[facility] [address] [place] [address] Lab Director: Emily George MD#### INSU ####[facility] [place] [address] Lab Director: Placido Pierce, [facility] [address] [place] [address] Lab Director: Emily George MD Insulin, Totalon 04-14-2025 Insulin 25.0 mU/L [facility] Insulin Comment FASTING [facility] Insulin Reference Range: [facility] Comment on above: Fastin.6-24.9 30 min: 20-112 60 min: 29-88 90 min: 26-84 120 min: 22-79 Lipid Panelon 04-14-2025 Cholesterol [Mass/Vol] 158 mg/dL 0 - 199 mg/dL [facility] Comment on above: Cholesterol Guidelines: <200 Desirable 200-240 Borderline >240 Undesirable Cholesterol in HDL [Mass/Vol] 31 mg/dL Low 40 - PINF mg/dL [facility] Comment on above: HDL Guidelines: <40 Undesirable 40-59 Borderline >59 Desirable Cholesterol in LDL [Mass/Vol] 59 mg/dL 0 - 100 mg/dL [facility] Comment on above: LDL Guidelines: <100 Desirable 100-129 Near to/above Desirable 130-159 Borderline >159 Undesirable Direct (measured) LDL and calculated LDL are not interchangeable tests. Cholesterol in VLDL [Mass/Vol] 68 mg/dL High 1 - 30 mg/dL [facility] Cholesterol.total/Chol esterol in HDL [Mass ratio] 5.1 {ratio} High [facility] - 5.0 [facility] Interpretation and review of laboratory results Abnormal [facility] Triglyceride [Mass/Vol] 341 mg/dL High NINF - 150 mg/dL [facility] Comment on above: Triglyceride Guidelines: <150 Desirable 150-199 Borderline 200-499 High >499 Very high Based on AHA Guidelines for fasting triglyceride, July 2012. Lipid Profileon 04-14-2025 Cholesterol [Mass/Vol] 158 mg/dL Normal 0-199 [facility] Comment on above: Result Comment: Cholesterol Guidelines: <200 Desirable 200-240 Borderline >240 Undesirable Performed By: #### L IPR, GLYHGB ####[facility] [address] [place] [address] Lab Director: Placido Pierce MD#### CP ####[facility] [address] [place], [place] [address])[phone] Director: Emily George MD#### INSU ####[address] [address] Lab Director: Placido Pierce [facility] [address] [place], [place] [address])[phone] Director: Emily George MD Cholesterol in HDL [Mass/Vol] 31 mg/dL Low >40 [facility] Comment on above: Result Comment: HDL Guidelines: <40 Undesirable 40-59 Borderline >59 Desirable Performed By: #### L IPR, GLYHGB ####[facility] [address] [place] [address] Lab Director: Placido Pierce MD#### CP ####[facility] [address] [place], [place] [phone] Director: Emily George MD#### INSU ####[facility] [place] [address] Lab Director: Placido Pierce, [facility] [address] [place] [address] Lab Director: Emily George MD Cholesterol in LDL [Mass/Vol] 59 mg/dL Normal 0-100 [facility] Comment on above: Result Comment: LDL Guidelines: <100 Desirable 100-129 Near to/above Desirable 130-159 Borderline >159 Undesirable Direct (measured) LDL and calculated LDL are not interchangeable tests. Performed By: #### L IPR, GLYHGB ####[facility] [place] [address] Lab Director: Placido Pierce MD#### CP ####[facility] [address] [place] [address] Lab Director: Emily George MD#### INSU ####[facility] [place] [address] Lab Director: Placido Pierce, [facility] [address] [place], [place] [phone] Director: Emily George MD Cholesterol in VLDL [Mass/Vol] 68 mg/dL High 1-30 [facility] Comment on above: Performed By: #### L IPR, GLYHGB ####[facility] [address] [place] [address] Lab Director: Placido Pierec MD#### CP ####[facility] [address] [place] [address] Lab Director: Emily George MD#### INSU ####[facility] [address] [place] [address] Lab Director: Placido Pierce, [facility] [address] [place] [address] Lab Director: Emily George MD Cholesterol.total/Chol esterol in HDL [Mass ratio] 5.1 {ratio} High <5.0 [facility] Comment on above: Performed By: #### L IPR, GLYHGB ####[facility] [address] [place], [place] [phone] Director: Placido Pierce MD#### CP ####[facility] [address] [place] [address] Lab Director: Emily George MD#### INSU ####[facility] [place], [place] [phone] Director: Placido Pierce, [facility] [address] [place] [address] Lab Director: Emily George MD Triglyceride [Mass/Vol] 341 mg/dL High <150 [facility] Comment on above: Result Comment: Triglyceride Guidelines: <150 Desirable 150-199 Borderline 200-499 High >499 Very high Based on AHA Guidelines for fasting triglyceride, July 2012. Performed By: #### L IPR, GLYHGB ####[facility] [address] [place] [address] Lab Director: Placido Pierce MD#### CP ####[facility] [address] [place] [address] Lab Director: Emily George MD#### INSU ####[facility] [place] [address] Lab Director: Placido Pierce, [facility] [address] [place] [address] Lab Director: Emily George MD No Panel Informationon 04-14 [facility] MR Foot - right WO and [...] again superimposed infection be difficult to include. [facility] RIS CONSOLIDATED EXAM: MRI FOOT RIGHT W [...] atrophic change likely related to chronic neuropathy. [facility] RIS Hesham Martins MD - 04/12/2025 EXAM: MRI FOOT RIGHT [...] again superimposed infection be difficult to include. [facility] MR Foot - right WO and W con trast IVOrdered By: Hesham Mcarthur on 04-12-2025 [facility] Work Phone: MRI FOOT RIGHT W [...] by: Hesham Mcarthur MD 04/12/25 Final result [facility] Radiology, Radiologist, MD - 04/12/2025 EXAM: [...] by: Hesham Mcarthur MD 04/12/25 Final result [facility] MRI FOOT RIGHT W WO CONTRAST EXAM: [...] Hesham Mcarthur MD 04/12/25 Final result Normal [facility] Radiology Study observation (narrative) [facility] MRI FOOT RIGHT W WO CONTRAST Ordered By: Radiologist Radiology on 04-12-2025 [facility] Work Phone: BUN & Creatinineon Creatinine [Mass/Vol] 1.3 mg/dL High 0.5 - 0.9 mg/dL [facility], Glom Filt Rate 52 Low - PINF [facility] Comment on above: These results are not intended for use in patients <18 years of age. eGFR results are calculated without a race factor using the 2021 CKD-EPI equation. Careful clinical correlation is recommended, particularly when comparing to results calculated using previous equations. The CKD-EPI equation is less accurate in patients with extremes of muscle mass, extra-renal metabolism of creatine, excessive creatine ingestion, or following therapy that affects renal tubular secretion. Interpretation and review of laboratory results Abnormal [facility] Urea nitrogen [Mass/Vol] 15 mg/dL 6 - 20 mg/dL [facility] BUN + Creatinineon 5 Creatinine [Mass/Vol] 1.3 mg/dL High 0.5-0.9 [facility] Comment on above: Performed By: #### B UNCRT #### [facility] [address] [place] [address] Manager It Security: Emily George MD GFR/1.73 sq M.predicted among non-blacks MDRD (S/P/Bld) [Vol rate/Area] 52 mL/min/{1.73_m2} Low >60 [facility] Comment on above: Result Comment: These [...] By: #### B UNCRT #### [facility] [address] [place] [address] Manager It Security: Emily George MD Urea nitrogen [Mass/Vol] 15 mg/dL Normal 6-20 [facility] Comment on above: Performed By: #### B UNCRT #### [facility] [address] [place] [address] Manager It Security: Emily George MD MHPT BUN + CREATININEon Creatinine [Mass/Vol] 1.3 mg/dL High 0.5 - 0.9 mg/dL [facility] Interpretation and review of laboratory results [facility] Low - PINF [facility] Comment on above: These results are [...] [Mass/Vol] 15 mg/dL 6 - 20 mg/dL [facility] Original Ordering Provider: [facility] MR Foot - right WO and W con trast Chay 04-11-2025 Radiology Study observation (narrative) Sid [facility] XR Foot - right 2 [facility] Result: XRAY RIGHT FOOT: AP/OBL- No fx. Lis franc diastasis concern with deformity. DP 2 mild cortical disruption 1-2mm possible. No bone density changes [facility] Cult,Woundon 04-08-2025 Cult,Wound Specimen Description .TOE [...] Trimethoprim/Sulfa <=10 SUSCEPTIBLE Vancomycin 1 SUSCEPTIBLE Susceptible [facility] Comment on above: Performed By: #### W DC ####[facility] [address] [place] [address] Lab Director: Placido Pierce, [facility] [address] [place] [address] Lab Director: Emily George MD XR Foot - right 2 [facility] Study observation (narrative) [facility] Brain Natri. Peptideon 04-04 Natriuretic peptide B (Bld) [Mass/Vol] 262 pg/mL Normal <300 [facility] Comment on above: Result Comment: An a ge-independent cutoff point of 300 pg/ml has a 98% negative predictive value excluding acute heart failure. Performed By: #### B VP HR DIVERSITY, SED, CRP #### [facility] [address] [place] [address] Manager It Security: Emily George MD Brain Natriuretic Peptideon 04-04-2025 Natriuretic peptide B (Bld) [Mass/Vol] 262 pg/mL NINF - 300 pg/mL [facility] Comment on above: An age-independent c utoff point of 300 pg/ml has a 98% negative predictive value excluding acute heart failure. C-Reactive Proteinon 025 CRP High sensitivity method [Mass/Vol] 46.7 mg/L High 0.0 - 5.0 mg/L [facility] Interpretation and review of laboratory results Abnormal [facility] CRP [Mass/Vol] 46.7 mg/L High 0.0-5.0 [facility] Comment on above: Performed By: #### B VP HR DIVERSITY, SED, CRP #### [facility] [address] [place] [address] Manager It Security: Emily George MD CBC with Auto Differentialon 04-04-2025 Basophils (Bld) [#/Vol] 0.02 10*3/uL [facility] Basophils/100 WBC (Bld) 0 % 0 - 2 % [facility] Eosinophils (Bld) [#/Vol] 0.07 10*3/uL [facility] Eosinophils/100 WBC (Bld) 1 % 0 - 5 % [facility] Erythrocyte distribution width (RBC) [Ratio] 18.4 % High 12.1 - 15.2 % [facility] Hematocrit (Bld) [Volume fraction] 30 % Low 36.0 - 46.0 % [facility] Hemoglobin (Bld) [Mass/Vol] 9.6 g/dL Low 12.0 - 16.0 g/dL [facility] Immature granulocytes (Bld) [#/Vol] 0.13 10*3/uL [facility] Immature granulocytes/100 WBC (Bld) 2 % 0 - 5 % [facility] Interpretation and review of laboratory results Abnormal [facility] Lymphocytes/100 WBC (Bld) 23 % 15 - 40 % [facility] Lymphocytes/100 WBC (Bld) 1.39 % [facility] MCH (RBC) [Entitic mass] 27 pg 26.0 - 34.0 pg [facility] MCHC (RBC) [Mass/Vol] 32 g/dL 31.0 - 37.0 g/dL [facility] MCV (RBC) [Entitic vol] 84.3 fL 80.0 - 100.0 fL [facility] Monocytes/100 WBC (Bld) 6 % 4 - 8 % [facility] Monocytes/100 WBC (Bld) 0.37 % [facility] Neutrophils/100 WBC (Bld) 68 % 47 - 75 % [facility] Platelet mean volume (Bld) [Entitic vol] 11.7 fL 6.0 - 12.0 fL [facility] Platelets (Bld) [#/Vol] 186 10*3/uL [facility] RBC (Bld) [#/Vol] 3.56 10*6/uL Low 4.00 - 5.2 0 m/uL [facility] Segmented neutrophils/100 WBC (Bld) 4.09 % [facility] WBC other (Bld) [#/Vol] 6.1 [facility] CBC with Diffon 04-04-2025 Abs. Basophil 0.02 k/uL Normal 0.00-0.20 [facility] Comment on above: Performed By: #### C DP #### [facility] [address] [place] [address] [employer]: Emily George MD Abs.Imm.Granulocyte 0.13 k/uL Normal 0.00-0.30 [facility] Comment on above: Performed By: #### C DP #### [facility] [address] [phone] [employer]: Emily George MD Abs.Neutrophil (Seg) 4.09 k/uL Normal 2.5-7.0 [facility] Comment on above: Performed By: #### C DP #### [facility] [address] [phone] [employer]: Emily George MD Basophils/100 WBC (Bld) 0 % Normal 0-2 [facility] Comment on above: Performed By: #### C DP #### [facility] [address] [place] [address] [employer]: Emily George MD Eosinophils (Bld) [#/Vol] 0.07 10*3/uL Normal 0.00-0.40 [facility] Comment on above: Performed By: #### C DP #### [facility] [address] [phone] [employer]: Emily George MD Eosinophils/100 WBC (Bld) 1 % Normal 0-5 [facility] Comment on above: Performed By: #### C DP #### [facility] [address] [place] [address] [employer]: Emily George MD Erythrocyte distribution width (RBC) [Ratio] 18.4 % High 12.1-15.2 [facility] Comment on above: Performed By: #### C DP #### [facility] [address] [place] [address] [employer]: Emily George MD Hematocrit (Bld) [Volume fraction] 30.0 % Low 36.0-46.0 [facility] Comment on above: Performed By: #### C DP #### [facility] [address] [phone] [employer]: Emily George MD Hemoglobin (Bld) [Mass/Vol] 9.6 g/dL Low 12.0-16.0 [facility] Comment on above: Performed By: #### C DP #### [facility] [address] [place], [place] [phone] [employer]: Emily George MD Immature granulocytes/100 WBC (Bld) 2 % Normal 0-5 [facility] Comment on above: Performed By: #### C DP #### [facility] [address] [phone] [employer]: Emily George MD Lymphocytes (Bld) [#/Vol] 1.39 10*3/uL Normal 1.00-4.80 [facility] Comment on above: Performed By: #### C DP #### [facility] [address] [phone] [employer]: Emily George MD Lymphocytes/100 WBC (Bld) 23 % Normal 15-40 [facility] Comment on above: Performed By: #### C DP #### [facility] [address] [place] [address] [employer]: Emily George MD MCH (RBC) [Entitic mass] 27.0 pg Normal 26.0-34.0 [facility] Comment on above: Performed By: #### C DP #### [facility] [address] [place] [address] [employer]: Emily George MD MCHC (RBC) [Mass/Vol] 32.0 g/dL Normal 31.0-37.0 [facility] Comment on above: Performed By: #### C DP #### [facility] [address] [place] [address] [employer]: Emily George MD MCV (RBC) [Entitic vol] 84.3 fL Normal 80.0-100.0 [facility] Comment on above: Performed By: #### C DP #### [facility] [address] [place] [address] [employer]: Emily George MD Monocytes (Bld) [#/Vol] 0.37 10*3/uL Normal 0.00-1.00 [facility] Comment on above: Performed By: #### C DP #### [facility] [address] [place] [address] [employer]: Emily George MD Monocytes/100 WBC (Bld) 6 % Normal 4-8 [facility] Comment on above: Performed By: #### C DP #### [facility] [address] [place] [address] [employer]: Emily George MD Neutrophil (Seg) 68 % Normal 47-75 [facility] Comment on above: Performed By: #### C DP #### [facility] [address] [place] [address] [employer]: Emily George MD Platelet mean volume (Bld) [Entitic vol] 11.7 fL Normal 6.0-12.0 [facility] Comment on above: Performed By: #### C DP #### [facility] [address] [place] [address] [employer]: Emily George MD Platelets (Bld) [#/Vol] 186 10*3/uL Normal 140-450 [facility] Comment on above: Performed By: #### C DP #### [facility] [address] [place] [address] [employer]: Emily George MD RBC (Bld) [#/Vol] 3.56 10*6/uL Low 4.00-5.20 [facility] Comment on above: Performed By: #### C DP #### [facility] [address] [place] [address] [employer]: Emily George MD WBC (Bld) [#/Vol] 6.1 10*3/uL Normal 3.5-11.0 [facility] Comment on above: Performed By: #### C DP #### [facility] [address] [place] [address] [employer]: Emily George MD No Panel Informationon 04-04 No acute osseous injury. Soft tissue swelling of the left great toe on the right second toe without radiographic evidence of osteomyelitis. Postsurgical changes partially imaged on the left. [facility] EXAM: XR TOE LEFT (MIN 2 [...] blastic bony lesions. There is normal mineralization. [facility] Daksha Hannah MD - 04/04/2025 EXAM: XR TOE [...] Postsurgical changes partially imaged on the left. [facility] No Panel InformationOrdered By: Daksha Hannah on 04-04-2025 [facility] Work Phone: Sedimentation Rateon 025 ESR Photometric method (Bld) [Velocity] 32 High [facility] Interpretation and review of laboratory results Abnormal [facility] Sedimentation Rate 32 mm/Hr High 0-20 [facility] Comment on above: Performed By: #### B VP HR DIVERSITY, SED, CRP #### [facility] [address] [place] [address] [employer]: Emily George MD XR TOE LEFT (MIN [...] Daksha Hannah MD 04/04/25 Final result Normal [facility] XR TOE RIGHT (MIN 2 VIEWS)on [...] Daksha Hannah MD 04/04/25 Final result Normal [facility] XR Toes - left 2 [facility] Radiology Study observation (narrative) [facility] XR Toes - right 2 Viewson Radiology Study observation (narrative) [facility] BRIAN DIGITAL SCREEN BILA TERALon 02-28-2025 NITA BRIAN DIGITAL SCREEN BILATERAL HISTORY: Screening. TECHNIQUE: [...] be mailed to the patient. Performing Facility: [facility] [address] [address] Interpreted by: Micky Lauren Jr., MD Signed by: Micky Lauren Jr., MD 02/28/25 Final result Normal [facility] Comp Metabolic Profon 2024 Albumin [Mass/Vol] 3.8 g/dL Normal 3.5-5.2 [facility] Comment on above: Performed By: #### G LYHGB, LIPR, LDLDIR ####[facility] [address] [place] [address] Lab Director: Placido Pierce MD#### CP ####[facility] [address] [place], [place] [phone] Lab Director: Emily George MD Alkaline Phos 115 U/L High 35-104 [facility] Comment on above: Performed By: #### G LYHGB, LIPR, LDLDIR ####[facility] [place] [address] Lab Director: Placido Pierce MD#### CP ####[facility] [address] [place] [address] Lab Director: Emily George MD ALT [Catalytic activity/Vol] 11 U/L Normal 5-33 [facility] Comment on above: Performed By: #### G LYHGB, LIPR, LDLDIR ####[address] [place] [address] Lab Director: Placido Pierce MD#### CP ####[facility] [address] [place], [place] [phone] Lab Director: Emily George MD Anion gap [Moles/Vol] 12 mmol/L Normal 9-17 [facility] Comment on above: Performed By: #### G LYHGB, LIPR, LDLDIR ####[address] [place] [address] Lab Director: Placido Pierce MD#### CP ####[facility] [address] [place] [address] Lab Director: Emily George MD AST [Catalytic activity/Vol] 14 U/L Normal <32 [facility] Comment on above: Performed By: #### G LYHGB, LIPR, LDLDIR ####[facility] [place] [address] Lab Director: Placido Pierce MD#### CP ####[facility] [address] [place] [address] Lab Director: Emily George MD Bilirubin [Mass/Vol] 0.4 mg/dL Normal 0.3-1.2 [facility] Comment on above: Performed By: #### G LYHGB, LIPR, LDLDIR ####[address] [place] [address] Lab Director: Placido Pierce MD#### CP ####[facility] [address] [place] [address] Lab Director: Emily George MD BUN/CRE Ratio 19 Normal 9-20 [facility] Comment on above: Performed By: #### G LYHGB, LIPR, LDLDIR ####[address] [place] [address] Lab Director: Placido Pierce MD#### CP ####[facility] [address] [place], [place] [address])[phone] Director: Emily George MD Calcium [Mass/Vol] 9.3 mg/dL Normal 8.6-10.4 [facility] Comment on above: Performed By: #### G LYHGB, LIPR, LDLDIR ####[address] [address] Lab Director: Placido Pierce MD#### CP ####[facility] [address] [place] [address] Lab Director: Emily George MD Chloride [Moles/Vol] 102 mmol/L Normal 98-107 [facility] Comment on above: Performed By: #### G LYHGB, LIPR, LDLDIR ####[address] [place] [address] Lab Director: Placido Pierce MD#### CP ####[facility] [address] [place] [address] Lab Director: Emily George MD CO2 [Moles/Vol] 25 mmol/L Normal 20-31 [facility] Comment on above: Performed By: #### G LYHGB, LIPR, LDLDIR ####[facility] [place] [address] Lab Director: Placido Pierce MD#### CP ####[facility] [address] [place] [address] Lab Director: Emily George MD Creatinine [Mass/Vol] 1.1 mg/dL High 0.5-0.9 [facility] Comment on above: Performed By: #### G LYHGB, LIPR, LDLDIR ####[address] [place] [address] Lab Director: Placido Pierce MD#### CP ####[facility] [address] [place], [place] [phone] lab Director: Emily George MD GFR/1.73 sq M.predicted among non-blacks MDRD (S/P/Bld) [Vol rate/Area] 63 mL/min/{1.73_m2} Normal >60 [facility] Comment on above: Result Comment: These [...] Performed By: #### G LYHGB, LIPR, LDLDIR ####[facility] [place] [address] Lab Director: Placido Pierce MD#### CP ####[facility] [address] [place] [address] Lab Director: Emily George MD Glucose [Mass/Vol] 125 mg/dL High 70-99 [facility] Comment on above: Performed By: #### G LYHGB, LIPR, LDLDIR ####[address] [place] [address] Lab Director: Placido Pierce MD#### CP ####[facility] [address] [place] [address] Lab Director: Emily George MD Potassium [Moles/Vol] 4.2 mmol/L Normal 3.7-5.3 [facility] Comment on above: Performed By: #### G LYHGB, LIPR, LDLDIR ####[address] [address] Lab Director: Placido iPerce MD#### CP ####[facility] [address] [place], [place] [address])[phone] Director: Emily George MD Protein [Mass/Vol] 7.2 g/dL Normal 6.4-8.3 [facility] Comment on above: Performed By: #### G LYHGB, LIPR, LDLDIR ####[address] [address] Lab Director: Placido Pierce MD#### CP ####[facility] [address] [place] [address] Lab Director: Emily George MD Sodium [Moles/Vol] 139 mmol/L Normal 135-144 [facility] Comment on above: Performed By: #### G LYHGB, LIPR, LDLDIR ####[address] [address] Lab Director: Placido Pierce MD#### CP ####[facility] [address] [place] [address] Lab Director: Emily George MD Urea nitrogen [Mass/Vol] 21 mg/dL High 6-20 [facility] Comment on above: Performed By: #### G LYHGB, LIPR, LDLDIR ####[facility] [address] [place], [place] [id number] Lab Director: Placido Pierce MD#### CP ####[facility] [address] [place], [place] [phone] lab Director: Emily George MD Comprehensive Metabolic Pane [facility] 11-14-2024 Albumin [Mass/Vol] 3.8 g/dL 3.5 - 5.2 g/dL [facility] ALP [Catalytic activity/Vol] 115 U/L High 35 - 104 U/L [facility] ALT [Catalytic activity/Vol] 11 U/L 5 - 33 U/L [facility] Anion gap [Moles/Vol] 12 mmol/L 9 - 17 mmol/L [facility] AST [Catalytic activity/Vol] 14 U/L NINF - 32 U/L [facility] Bilirubin [Mass/Vol] 0.4 mg/dL 0.3 - 1 .2 mg/dL [facility] Calcium [Mass/Vol] 9.3 mg/dL 8.6 - 10. 4 mg/dL [facility] Chloride [Moles/Vol] 102 mmol/L 98 - 10 7 mmol/L [facility] CO2 [Moles/Vol] 25 mmol/L 20 - 31 mmol/L [facility] Creatinine [Mass/Vol] 1.1 mg/dL High 0.5 - 0.9 mg/dL [facility] Est, Glom Filt Rate 63 - PINF [facility] Comment on above: These results are not [...] 125 mg/dL High 70 - 99 mg/dL [facility] Interpretation and review of laboratory results Abnormal [facility] Potassium [Moles/Vol] 4.2 mmol/L 3.7 - 5.3 mmol/L [facility] Protein [Mass/Vol] 7.2 g/dL 6.4 - 8.3 g/dL [facility] Sodium [Moles/Vol] 139 mmol/L 135 - 144 mmol/L [facility] Urea nitrogen [Mass/Vol] 21 mg/dL High 6 - 20 mg/dL [facility] Urea nitrogen/Creatinine [Mass ratio] 19 mg/mg 9 - 20 [facility] Hemoglobin A1Con 11-14-2024 Average glucose Estimated from glycated hemoglobin (Bld) [Mass/Vol] 103 mg/dL [facility] Comment on above: The ADA and AACC rec ommend providing the estimated average glucose result to permit better patient understanding of their HBA1c result. HbA1c (Bld) [Mass fraction] 5.2 % 4.0 - 6.0 % [facility] Glucose [Mass/Vol] 103 mg/dL Normal [facility] Comment on above: Result Comment: The ADA and AACC recommend providing the estimated average glucose result to permit better patient understanding of their HBA1c result. Performed By: #### G LYHGB, LIPR, LDLDIR ####[facility] [address] [place] [id number] Lab Director: Placido Pierce MD#### CP ####[facility] [address] [place] [address] lab Director: Emily George MD HbA1c (Bld) [Mass fraction] 5.2 % Normal 4.0-6.0 [facility] Comment on above: Performed By: #### G LYHGB, LIPR, LDLDIR ####[facility] [address] [place], [place] [phone] Lab Director: Placido Pierce MD#### CP ####[facility] [address] [place] [address] lab Director: Emily George MD LDL Chol, Directon LDL Chol, Direct 94 mg/dL Normal <100 [facility] Comment on above: Performed By: #### G LYHGB, LIPR, LDLDIR ####[facility] [address] [place], [place] [id number] lab Director: Placido Pierce MD#### CP ####[facility] [address] [place] [address] lab Director: Emily George MD LDL Cholesterol, Directon Cholesterol in LDL [Mass/Vol] 94 mg/dL NINF - 100 mg/dL [facility] Lipid Panelon 11-14-2024 Cholesterol [Mass/Vol] 179 mg/dL 0 - 199 mg/dL [facility] Comment on above: Cholesterol Guidelines: <200 Desirable 200-240 Borderline >240 Undesirable Cholesterol in HDL [Mass/Vol] 31 mg/dL Low 40 - PINF mg/dL [facility] Comment on above: HDL Guidelines: <40 Undesirable 40-59 Borderline >59 Desirable Cholesterol in LDL [Mass/Vol] Can not be calculated 0 - 100 mg/dL [facility] Comment on above: LDL Guidelines: <100 Desirable 100-129 Near to/above Desirable 130-159 Borderline >159 Undesirable Direct (measured) LDL and calculated LDL are not interchangeable tests. Cholesterol in VLDL [Mass/Vol] Can not be calculated 1 - 30 mg/dL [facility] Cholesterol.total/Chol esterol in HDL [Mass ratio] 5.8 {ratio} [facility] Interpretation and review of laboratory results Abnormal [facility] Triglyceride [Mass/Vol] 407 mg/dL High NINF - 150 mg/dL [facility] Comment on above: Triglyceride Guidelines: <150 Desirable 150-199 Borderline 200-499 High >499 Very high Based on AHA Guidelines for fasting triglyceride, July 2012. [facility] [place] [employer] Lipid Profileon 11-14-2024 Cholesterol [Mass/Vol] 179 mg/dL Normal 0-199 [facility] Comment on above: Result Comment: Cholesterol Guidelines: <200 Desirable 200-240 Borderline >240 Undesirable Performed By: #### G LYHGB, LIPR, LDLDIR ####[facility] [place], [place] [phone] Director: Placido Pierce MD#### CP ####[facility] [address] [place], [place] [phone])[phone] Director: Emily George MD Cholesterol in HDL [Mass/Vol] 31 mg/dL Low >40 [facility] Comment on above: Result Comment: HDL Guidelines: <40 Undesirable 40-59 Borderline >59 Desirable Performed By: #### G LYHGB, LIPR, LDLDIR ####[address] [place], [place] [phone] Director: Placido Pierce MD#### CP ####[facility] [address] [place], [place] [phone] Director: Emily George MD Cholesterol,LDL Can not be calculated Normal 0-100 [facility] Comment on above: Result Comment: LDL Guidelines: <100 Desirable 100-129 Near to/above Desirable 130-159 Borderline >159 Undesirable Direct (measured) LDL and calculated LDL are not interchangeable tests. Performed By: #### G LYHGB, LIPR, LDLDIR ####[address] [place], [place] [phone] Director: Placido Pierce MD#### CP ####[facility] [address] [place], [place] [phone] Director: Emily George MD Cholesterol,VLDL Can not be calculated Normal 1-30 [facility] Comment on above: Performed By: #### G LYHGB, LIPR, LDLDIR ####[facility] [place], [place] [phone] Director: Placido Pierce MD#### CP ####[facility] [address] [place] [address] Lab Director: Emily George MD Cholesterol.total/Chol esterol in HDL [Mass ratio] 5.8 {ratio} Normal [facility] Comment on above: Performed By: #### G LYHGB, LIPR, LDLDIR ####[facility] [address] [place] [address] Lab Director: Placido Pierce MD#### CP ####[facility] [address] [place] [address] Lab Director: Emily George MD Triglyceride [Mass/Vol] 407 mg/dL High <150 [facility] Comment on above: Result Comment: Triglyceride Guidelines: <150 Desirable 150-199 Borderline 200-499 High >499 Very high Based on AHA Guidelines for fasting triglyceride, July 2012. Performed By: #### G LYHGB, LIPR, LDLDIR ####[facility] [address] [place] [address] Lab Director: Placido Pierce MD#### CP ####[facility] [address] [place] [address] Lab Director: Emily George MD US THYROIDon [...] Lauren Jr., MD 09/07/24 Final result Normal [facility] US Thyroid glandon TI-RADS 5, highly suspicious subcentimeter nodule in the right lobe remains stable. (Follow if greater than or equal to 0.5 cm annually until 5 years according to ACR TI-RADS recommendations). Continued follow-up annually is recommended through 2026. [facility] EXAM: US THYROID HISTORY: Thyroid nodule [...] 1.7 x 1.3 cm. Isthmus: 0.2 cm [facility] Micky Lauren Jr., MD - 09/07/2024 [...] Continued follow-up annually is recommended through 2026. [facility] US Thyroid glandOrdered By: Micky Lauren on 09-07-2024 [facility] Work Phone: US Thyroid glandon Radiology Study observation (narrative) [facility] Magnesium[facility] 05-10-2024 Magnesium [Mass/Vol] 2.2 mg/dL 1.6 - 2 .6 mg/dL [facility] Share Practice [facility] No Panel Informationon 05-10 [facility] [employer] Protein / creatinine ratio, urineon 05-10-2024 Creatinine (U) [Mass/Vol] 132.0 mg/dL 28.0 - 217.0 mg/dL [facility] [employer] Protein (U) [Mass/Vol] 9 mg/dL [facility] Comment on above: No normal range esta blished. Urine Total Protein Creatinine Ratio 0.07 [facility] Practice [facility] Renal Function Panelon 05-10 Albumin [Mass/Vol] 4.2 g/dL 3.5 - 5.2 g/dL [facility] Anion gap [Moles/Vol] 15 mmol/L 9 - 17 mmol/L [facility] [employer] Calcium [Mass/Vol] 9.2 mg/dL 8.6 - 10. 4 mg/dL [facility] Chloride [Moles/Vol] 101 mmol/L 98 - 10 7 mmol/L [facility] CO2 [Moles/Vol] 25 mmol/L 20 - 31 mmol/L [facility] Creatinine [Mass/Vol] 1.3 mg/dL High 0.5 - 0.9 mg/dL [facility] [employer] Est, Glom Filt Rate 52 Low - PINF [facility] Comment on above: These results [...] 141 mg/dL High 70 - 99 mg/dL [facility] Interpretation and review of laboratory results Abnormal [facility] Phosphate [Mass/Vol] 3.8 mg/dL 2.6 - 4 .5 mg/dL [facility] Potassium [Moles/Vol] 4.0 mmol/L 3.7 - 5.3 mmol/L [facility] Sodium [Moles/Vol] 141 mmol/L 135 - 144 mmol/L [facility] Urea nitrogen [Mass/Vol] 19 mg/dL 6 - 20 mg/dL [facility] Urea nitrogen/Creatinine [Mass ratio] 15 mg/mg 9 - 20 [facility] Urinalysison 05-10-2024 Bilirubin Ql (U) Negative NEGATIVE [facility] Clarity (U) Clear Clear [facility] Color (U) Yellow Yellow [facility] Comment [facility] Glucose Test strip (U) [Mass/Vol] Negative NEGATIVE mg/dL [facility] Hemoglobin Auto test strip Ql (U) Negative NEGATIVE [facility] Interpretation and review of laboratory results Abnormal [facility] Ketones (U) [Mass/Vol] Negative NEGAT BEATRIZ mg/dL [facility] Leukocyte esterase Test strip Ql (U) Negative NEGATIVE [facility] Nitrite Ql (U) Negative NEGATIVE [facility] pH (U) 5.0 [pH] 5.0 - 8.0 [facility] Protein (U) [Mass/Vol] TRACE Abnormal NEGAT BEATRIZ mg/dL [facility] Specific gravity (U) [Rel density] 1.020 1.005 - 1.030 [facility] Urobilinogen Qn (U) Normal 0.0 - 1. 0 EU/dL [facility] Ananda 02-15-2024 L Specimen: [id number] Received: 02/16/24 Status: SOUT Req Num: [id number] Spec Type: Surgical Subm Dr: Frances Harris DPM, [place] Tissues: A Soft Tissue/Surgical Margin-Other than Tumor,Mass,Lip or Becka (LT MID FOOT CH Procedures: HE/2, Gross/Micro L4 Age/ Patient Sex Location Account Attending Physician Celina Gaspar 43/F LABELL [id number] Frances Harris DPM, MS SPEC NUM: [id number] RECD: 02/16/24 STATUS: ARLEN SO NUM: [id number] MAYTE: 02/15/[address]: Frances Harris DPM, [place] ENTERED: 02/16/24 [facility] DR: Darwin Vergara SPEC TYPE: Surgical DEPT: DEANA YEGAER ORDERED: HE/2, Gross/Micro L4 ORDERED: HE/2, Gross/Micro [...] sections reveal firm, yellow spongy bone matrix. Nuclear Radiation Engineer sections are submitted following decalcification in A1?A2. Clinical history: varus deformity left ankle, charcot join left ankle and foot. CPT Codes 32614 Specimen: [id number] Received: 02/16/24 Status: ALREN Zuletapaola Num: [id number] Spec Type: Surgical Subm Dr: Frances Harris,INDER, MS Tissues: A Soft Tissue/Surgical Margin-Other than Tumor,Mass,Lip or Becka (LT MID FOOT CH Procedures: HE/2, Gross/Micro L4 Patient: Celina Gaspar [id number] (Continued) Signed (signature on file) Juan José Yu MD 02/17/24 1549 Normal [facility] Lipid Panelon 06-15-2023 Cholesterol [Mass/Vol] 174 mg/dL NINF - 200 mg/dL [employer] [facility] Comment on above: Cholesterol Guidelines: <200 Desirable 200-240 Borderline >240 Undesirable Cholesterol in HDL [Mass/Vol] 30 mg/dL Low 40 - PINF mg/dL [employer] [facility] Comment on above: HDL Guidelines: <40 Undesirable 40-59 Borderline >59 Desirable Cholesterol in LDL [Mass/Vol] 77 mg/dL 0 - 130 mg/dL [employer] [facility] Comment on above: LDL Guidelines: <100 Desirable 100-129 Near to/above Desirable 130-159 Borderline >159 Undesirable Direct (measured) LDL and calculated LDL are not interchangeable tests. Cholesterol.total/Chol esterol in HDL [Mass ratio] 5.8 {ratio} High NINF - 5 [facility] [facility] Interpretation and review of laboratory results Abnormal [facility] Triglyceride [Mass/Vol] 334 mg/dL High NINF - 150 mg/dL [facility] [facility] Comment on above: Triglyceride Guidelines: <150 Desirable 150-199 Borderline 200-499 High >499 Very high Based on AHA Guidelines for fasting triglyceride, July 2012. [employer] [facility] BUN & Creatinineon Creatinine [Mass/Vol] 1.08 mg/dL High 0.50 - 0.90 mg/dL [facility] GFR/1.73 sq M.predicted MDRD (S/P/Bld) [Vol rate/Area] - PINF [facility] Comment on above: These results [...] 21 mg/dL High 6 - 20 mg/dL [facility] CBC with Auto Differentialon 02-05-2023 Absolute Eos # 0.10 [facility] Absolute Lymph # 1.70 [facility] Absolute [place] # 0.50 [facility] RS [facility] Basophils (Bld) [#/Vol] 0.00 10*3/uL [facility] Basophils/100 WBC (Bld) 1 % 0 - 2 % [facility] Differential Type YES [facility] Eosinophils/100 WBC (Bld) 1 % 0 - 5 % [facility] Hematocrit (Bld) [Volume fraction] 36.2 % 36 - 46 % [facility] Hemoglobin (Bld) [Mass/Vol] 12.2 g/dL 12.0 - 16.0 g/dL [facility] Interpretation and review of laboratory results Abnormal [facility] Lymphocytes/100 WBC (Bld) 23 % 15 - 40 % [facility] MCH (RBC) [Entitic mass] 28.7 pg 26 - 34 pg [facility] MCHC (RBC) [Mass/Vol] 33.7 g/dL 31 - 37 g/dL B ON [facility] MCV (RBC) [Entitic vol] 85.3 fL 80 - 100 fL [facility] Monocytes/100 WBC (Bld) 7 % 4 - 8 % [facility] Platelet distribution width (Bld) [Ratio] 18.1 % High 12.1 - 15.2 % [facility] Platelets (Bld) [#/Vol] 150 10*3/uL [facility] RBC (Bld) [#/Vol] 4.25 10*6/uL 4.0 - 5.2 m/uL [facility] Segmented neutrophils/100 WBC (Bld) 68 % 47 - 75 % [facility] Segs Absolute 5.30 [facility] WBC (Bld) [#/Vol] 7.6 10*3/uL [facility] Chlorideon 02-05-2023 Chloride [Moles/Vol] 99 mmol/L 98 - 10 7 mmol/L [facility] Glucose, Randomon 02-05-2023 Glucose [Mass/Vol] 107 mg/dL High 70 - 99 mg/dL [facility] No Panel Informationon 02-05 Interpretation and review of laboratory results Abnormal [facility] Potassiumon 02-05-2023 Potassium [Moles/Vol] 4.6 mmol/L 3.7 - 5.3 mmol/L [facility] Sodiumon 02-05-2023 Sodium [Moles/Vol] 134 mmol/L Low 135 - 144 mmol/L [facility] Wet Prep, Genitalon 02-06-20 Interpretation and review of laboratory results Abnormal [facility] Microorganism or agent identified Nom (Unsp spec) FEW WBC Abnormal [facility] Microorganism or agent identified Nom (Unsp spec) MODERATE EPITHELIAL CELLS Abnormal [facility] Microorganism or agent identified Nom (Unsp spec) MODERATE BACTERIA Abnormal [facility] Microorganism or agent identified Nom (Unsp spec) NO TRICHOMONAS SEEN [facility] Microorganism or agent identified Nom (Unsp spec) NO FUNGAL ELEMENTS SEEN [facility] Microorganism or agent identified Nom (Unsp spec) NO CLUECELL SEEN [facility] Specimen Description .VAGINA [facility] CT FOOT LT WO CONon 02-05-20 CT [...] by: EMILY ELY Date: 2023-02-04 20:14 Normal [facility] XR ANKLE LEFT 3+ VIEWS (ABDOULAYE DARD)on 01-06-2023 XR ANKLE LEFT 3+ VIEWS (STANDARD) [...] on ThuJan 06, 2023 6:11:[address] [facility] Comment on above: Order Comment: Injur [...] fragmentation of the navicular and cuneiform bones. [facility] EXAM: MRI FOOT LEFT W WO [...] osteomyelitis. No nonenhancing abscess pockets are identified. [facility] Mike Villavicencio MD - 06/25/2022 EXAM: [...] fragmentation of the navicular and cuneiform bones. [employer] Phone: Radiology Study observation (narrative) [employer] Phone: MRI FOOT LEFT W WO CONTRASTO rdered By: Mike Villavicencio on 06-25-2022 [employer] Phone: XR FOOT LEFT (2 VIEWS)on There is a linear metallic foreign body projecting between the second and third metatarsals. There is also a metallic foreign body within the lower leg. There is fragmentation of the navicular as well as of all 3 cuneiforms. The appearance is consistent with the patient's history of neuropathy. [facility] EXAM: XR FOOT LEFT (2 VIEWS) HISTORY: M79.5. The patient is a 42-year-old female. Evaluate for foreign body. COMPARISON: None. [facility] Mike Villavicencio MD - 06/25/2022 EXAM: [...] consistent with the patient's history of neuropathy. 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 Clinical follow up recommended. Subcentimeter highly suspicious nodule in the right thyroid lobe 7 mm in greatest dimension. This meets criteria for annual follow up for 5 years. It does not meet criteria for FNA. [facility] EXAM: US HEAD NECK [...] fat without shadowing, suggestive of a lipoma. [facility] Micky Lauren Jr., MD - 05/27/2022 [...] It does not meet criteria for FNA. [facility] [employer] [employer] Work Phone: Radiology Study observation (narrative) [facility] [employer] Work Phone: US HEAD NECK SOFT TISSUE THY ROIDOrdered By: Micky Lauren on 05-27-2022 [facility] [employer] Work Phone: Rejection Notificationon Reason see below [facility] Comment on above: Result Comment: Unab le to perform testing; no specimen received. To perform testing the specimen will need to be recollected. No spec Performed By: #### R EJEC #### [facility] [address] [facility] [address] Rejected Test CXURN [facility] Comment on above: Performed By: #### R EJEC #### [facility] [address] [facility] [address] LDL Cholesterol, Directon Cholesterol in LDL [Mass/Vol] 84 mg/dL <100 [facility] CBC with Auto Differentialon 04-12-2022 Absolute Eos # 0.10 [facility] Absolute Lymph # 1.40 [facility] Absolute [place] # 0.30 [facility] RS [facility] [employer] Basophils (Bld) [#/Vol] 0.00 10*3/uL [facility] Basophils/100 WBC (Bld) 1 % 0 - 2 % [facility] Differential Type YES [facility] Eosinophils/100 WBC (Bld) 1 % 0 - 5 % [facility] Hematocrit (Bld) [Volume fraction] 35.7 % Low 36 - 46 % [facility] Hemoglobin (Bld) [Mass/Vol] 12.0 g/dL 12.0 - 16.0 g/dL [facility] Interpretation and review of laboratory results Abnormal [facility] Lymphocytes/100 WBC (Bld) 25 % 15 - 40 % [facility] MCH (RBC) [Entitic mass] 28.0 pg 26 - 34 pg [facility] MCHC (RBC) [Mass/Vol] 33.7 g/dL 31 - 37 g/dL B ON [facility] MCV (RBC) [Entitic vol] 83.3 fL 80 - 100 fL [facility] Monocytes/100 WBC (Bld) 5 % 4 - 8 % [facility] Platelet distribution width (Bld) [Ratio] 16.4 % High 12.1 - 15.2 % [facility] Platelets (Bld) [#/Vol] 168 10*3/uL [facility] RBC (Bld) [#/Vol] 4.29 10*6/uL 4.0 - 5.2 m/uL [facility] Segmented neutrophils/100 WBC (Bld) 68 % 47 - 75 % [facility] Segs Absolute 3.90 [facility] WBC (Bld) [#/Vol] 5.7 10*3/uL [facility] Comprehensive Metabolic Pane ananda 04-12-2022 Albumin [Mass/Vol] 4.2 g/dL 3.5 - 5.2 g/dL [facility] ALP (Bld) [Catalytic activity/Vol] 88 U/L 35 - 104 U/L [facility] ALT [Catalytic activity/Vol] 29 U/L 5 - 33 U/L [facility] Anion gap [Moles/Vol] 11 mmol/L 9 - 17 mmol/L [facility] AST [Catalytic activity/Vol] 27 U/L <32 [facility] Bilirubin [Mass/Vol] 0.65 mg/dL 0.30 - 1.20 mg/dL [facility] Calcium [Mass/Vol] 9.1 mg/dL 8.6 - 10. 4 mg/dL [facility] Chloride [Moles/Vol] 101 mmol/L 98 - 10 7 mmol/L [facility] CO2 [Moles/Vol] 28 mmol/L 20 - 31 mmol/L [facility] Creatinine [Mass/Vol] 1.04 mg/dL High 0.50 - 0.90 mg/dL [facility] Free PSA/Total PSA [Mass fraction] 6.8 g/dL 6.4 - 8.3 g/dL [facility] [employer] GFR >60 >60 mL/min [facility] GFR Non- 58 mL/min Low >60 [facility] GFR/1.73 sq M.predicted MDRD (S/P/Bld) [Vol rate/Area] [facility] Comment on above: Average GFR for 40-4 9 years old: 99 mL/min/1.73sq m Chronic Kidney Disease: <60 mL/min/1.73sq m Kidney failure: <15 mL/min/1.73sq m eGFR calculated using average adult body mass. Additional eGFR calculator available at: http://www.[employer]multiple_crcl_2012.htm Glucose [Mass/Vol] 103 mg/dL High 70 - 99 mg/dL [facility] [employer] [facility] Interpretation and review of laboratory results Abnormal [facility] Potassium [Moles/Vol] 3.9 mmol/L 3.7 - 5.3 mmol/L [facility] Sodium [Moles/Vol] 140 mmol/L 135 - 144 mmol/L [facility] Urea nitrogen (BldV) [Mass/Vol] 13 mg/dL 6 - 20 mg/dL [facility] [employer] Urea nitrogen/Creatinine (Bld) [Mass ratio] 13 [facility] [employer] [facility] HIV Screenon 04-12-2022 HIV Ag/Ab Non-Reactive NONREACTIVE [facility] Comment on above: No laboratory eviden ce of HIV infection. If acute HIV infection is suspected, consider testing for HIV-1 RNA. [facility] [employer] [facility] Lipid Panelon 04-12-2022 Cholesterol [Mass/Vol] 184 mg/dL <200 [facility] [employer] Comment on above: Cholesterol Guidelines: <200 Desirable 200-240 Borderline >240 Undesirable Cholesterol in HDL [Mass/Vol] 30 mg/dL Low >40 [facility] [employer] Comment on above: HDL Guidelines: <40 Undesirable 40-59 Borderline >59 Desirable Cholesterol.total/Chol esterol in HDL [Mass ratio] 6.1 {ratio} High <5 [facility] [employer] Interpretation and review of laboratory results Abnormal [facility] LDL Cholesterol 0 - 130 mg/dL [facility] Comment on above: Calculation not jacqueline d for Triglyceride value greater than 400 mg/dL. Direct LDL reflexed LDL Guidelines: <100 Desirable 100-129 Near to/above Desirable 130-159 Borderline >159 Undesirable Direct (measured) LDL and calculated LDL are not interchangeable tests. Triglyceride [Mass/Vol] 460 mg/dL High <150 [employer] [facility] Comment on above: Triglyceride Guidelines: <150 Desirable 150-199 Borderline 200-499 High >499 Very high Based on AHA Guidelines for fasting triglyceride, July 2012. [employer] [facility] No Panel Informationon 04-12 [employer] TSH with Reflexon 04-12-2022 TSH Qn 0.99 m[IU]/L [employer] Urinalysis with MicroscopicO rdered By: Lita Weeks on 08-01-2021 - [employer] Work Phone: Amorphous, UA NOT REPORTED None [employer] [facility] Work Phone: Bacteria, UA RARE Abnormal None [employer] Work Phone: Bilirubin Urine Negative NEGATIVE [employer] [facility] Work Phone: Casts UA NOT REPORTED /LPF [employer] Work Phone: Color, UA Yellow Yellow [employer] Work Phone: Crystals, UA NOT REPORTED None /HPF [address] Work Phone: Epithelial Cells UA 2 TO 5 /HPF [employer] Work Phone: Glucose, Ur Negative NEGATIVE [employer] Work Phone: Interpretation and review of laboratory results Abnormal [employer] Work Phone: Ketones Ql (U) Negative NEGATIVE [address] Work Phone: Leukocyte esterase Test strip Ql (U) Negative NEGATIVE [employer] Work Phone: Mucus, UA NOT REPORTED None [employer] Work Phone: Nitrite, Urine Negative NEGATIVE [address] Work Phone: Other Observations UA NOT REPORTED NOT REQ. [facility] Work Phone: pH, UA 6.0 [facility] Work Phone: Protein, UA Negative NEGATIVE [facility] Work Phone: RBC, UA NOT REPORTED [facility] Work Phone: Renal Epithelial, UA NOT REPORTED 0 /HPF Me [facility] [employer] Work Phone: Specific [place], UA 1.020 [facility] [place] [employer] Work Phone: Trichomonas, UA NOT REPORTED None [facility] Work Phone: Turbidity UA Clear Clear [facility] Work Phone: Urinalysis Comments [employer]ley [employer] Work Phone: Urine Hgb Negative NEGATIVE [facility] Work Phone: Urobilinogen, Urine Normal Normal [facility] Work Phone: WBC, UA NOT REPORTED 0 /HPF [facility] Work Phone: Yeast, UA NOT REPORTED None [facility] Work Phone: [facility] Work Phone: Urinalysis with MicroscopicO rdered By: Lita Weeks on 07-11-2021 - [employer] Phone: Amorphous, UA NOT REPORTED None [employer] [facility] Work Phone: Bacteria, UA 3+ Abnormal None [facility] Work Phone: Bilirubin Urine Negative NEGATIVE [employer] [facility] Work Phone: Casts UA NOT REPORTED /LPF [facility] Work Phone: Color, UA Yellow Yellow [facility] Work Phone: Crystals, UA NOT REPORTED None /HPF [employer] [facility] Work Phone: Epithelial Cells UA 2 TO 5 /HPF [facility] Work Phone: Glucose, Ur Negative NEGATIVE [facility] Work Phone: Interpretation and review of laboratory results Abnormal [facility] Work Phone: Ketones Ql (U) Negative NEGATIVE [facility] Work Phone: Leukocyte esterase Test strip Ql (U) 2+ Abnormal NEGATIVE [facility] Work Phone: Mucus, UA NOT REPORTED None [facility] Work Phone: Nitrite, Urine Positive Abnormal NEGATIVE [address] Work Phone: Other Observations UA NOT REPORTED NOT REQ. [facility] Work Phone: pH, UA 6.0 [facility] Work Phone: Protein, UA Negative NEGATIVE [facility] Work Phone: RBC, UA NOT REPORTED [facility] Work Phone: Renal Epithelial, UA NOT REPORTED 0 /HPF Me [facility] [employer] Work Phone: Specific [place], UA 1.025 [employer] Work Phone: Trichomonas, UA NOT REPORTED None [facility] [employer] Work Phone: Turbidity UA Hazy Abnormal Clear [facility] Work Phone: Urinalysis Comments Marley [employer] Work Phone: Urine Hgb Negative NEGATIVE [facility] Work Phone: Urobilinogen, Urine Normal Normal [facility] Work Phone: WBC, UA 20 TO 50 0 /HPF [facility] Work Phone: Yeast, UA NOT REPORTED None [facility] Work Phone: [facility] Work Phone: AlbuminOrdered By: Gregory stevens on 05-20-2021 Albumin [Mass/Vol] 4.2 g/dL 3.5 - 5.2 g/dL [employer] Phone: BUN & CreatinineOrdered By: Gregory Forbes on 05-20-2021 Creatinine [Mass/Vol] 1.18 mg/dL High 0.50 - 0.90 mg/dL [employer] Phone: GFR >60 >60 mL/min [employer] works Phone: GFR Non- 50 mL/min Low >60 [employer] Phone: GFR/1.73 sq M.predicted MDRD (S/P/Bld) [Vol rate/Area] [employer] Phone: Comment on above: Average GFR for 40-4 9 years old: 99 mL/min/1.73sq m Chronic Kidney Disease: <60 mL/min/1.73sq m Kidney failure: <15 mL/min/1.73sq m eGFR calculated using average adult body mass. Additional eGFR calculator available at: http://www.[employer]multiple_crcl_2012.htm GFR/1.73 sq M.predicted MDRD (S/P/Bld) [Vol rate/Area] NOT REPORTED [employer] Phone: Interpretation and review of laboratory results Abnormal [employer] Phone: Urea nitrogen (BldV) [Mass/Vol] 19 mg/dL 6 - 20 mg/dL [employer] Phone: CalciumOrdered By: Gregory stevens on 05-20-2021 Calcium [Mass/Vol] 9.2 mg/dL 8.6 - 10. 4 mg/dL [employer] Phone: Electrolyte PanelOrdered By: Gregory Forbes on 05-20-2021 Anion gap [Moles/Vol] 10 mmol/L 9 - 17 mmol/L [employer] Phone: Chloride [Moles/Vol] 103 mmol/L 98 - 10 7 mmol/L [employer] Phone: CO2 [Moles/Vol] 25 mmol/L 20 - 31 mmol/L [facility] Work Phone: Potassium [Moles/Vol] 4.2 mmol/L 3.7 - 5.3 mmol/L [facility] Work Phone: Sodium [Moles/Vol] 138 mmol/L 135 - 144 mmol/L [facility] Work Phone: MagnesiumOrdered By: Gregory high on 05-20-2021 Magnesium [Mass/Vol] 2.2 mg/dL 1.6 - 2 .6 mg/dL [facility]woodTh[facility] [employer] Phone: No Panel InformationOrdered By: Gregory Forbes on 05-20-2021 [facility] Work Phone: PhosphorusOrdered By: Gregory Forbes on 05-20-2021 Phosphate [Mass/Vol] 3.7 mg/dL 2.6 - 4 .5 mg/dL [facility] Work Phone: UrinalysisOrdered By: Gregory Forbes on 05-20-2021 Bilirubin Urine Negative NEGATIVE [facility] [facility] Work Phone: Color, UA YELLOW YELLOW [facility] Work Phone: Glucose, Ur Negative NEGATIVE [facility] Work Phone: Interpretation and review of laboratory results Abnormal [facility] Work Phone: Ketones Ql (U) Negative NEGATIVE [facility] Work Phone: Leukocyte esterase Test strip Ql (U) Negative NEGATIVE [facility] Work Phone: Nitrite, Urine Negative NEGATIVE [facility] Work Phone: pH, UA 5.0 [facility] [employer] Work Phone: Protein, UA TRACE Abnormal NEGATIVE [facility] [employer] Work Phone: Specific [place], UA 1.020 [facility] Work Phone: Turbidity UA CLEAR CLEAR [employer] Phone: Urinalysis Comments [employer] Phone: Urine Hgb Negative NEGATIVE [employer] Phone: Urobilinogen, Urine Normal Normal [employer] Phone: [employer] Phone: COVID-19Ordered By: Pattie smith on 01-22-2021 SARS-CoV-2 (COVID-19) RNA SHARMIN+probe Ql (Unsp spec) [employer] Phone: SARS-CoV-2 (COVID-19) RNA SHARMIN+probe Ql (Unsp spec) Not detected Not Detected [employer] Phone: Comment on above: The specimen is NEGATIVE for SARS-CoV-2, the novel coronavirus associated with COVID-19. A negative result does not rule out COVID-19. Twin SARS-CoV-2 for use on the Twin [employer] is a real-time RT-PCR test intended [...] this assay. Fact sheet for Healthcare Providers: https://www.fda.gov/media/188401/download Fact sheet for Patients: https://www.fda.gov/media/294853/download METHODOLOGY: RT-PCR Source .THROAT [employer] Phone: COVID-19, PCRon 11-15-2020 SARS-CoV-2, Rapid Not Detected Not Detected [employer] Phone: Comment on above: Rapid NAAT: The [...] management decisions. Fact sheet for Healthcare Providers: https://www.[employer].gov/media/435978/download Fact sheet for Patients: https://www.[employer].gov/media/240456/download Methodology: Isothermal Nucleic Acid Amplification Source .THROAT [facility]wood[facility] [employer]SA Phone: Otheron 11-15-2020 SARS-CoV-2 [facility]wood[facility] [employer] Phone: CBC Auto Differentialon 09-04 Basophils (Bld) [#/Vol] 0.10 10*3/uL [place] Basophils/100 WBC (Bld) 1 % 0 - 2 % [place] Differential Type YES [facility] [place] Eosinophils (Bld) [#/Vol] 0.10 10*3/uL [place] Eosinophils/100 WBC (Bld) 1 % 0 - 5 % [place] Erythrocyte distribution width (RBC) [Ratio] 16.3 % High 12.1 - 15.2 % [place] Hematocrit (Bld) [Volume fraction] 36.5 % 36 - 46 % [place] Hemoglobin (Bld) [Mass/Vol] 12.5 g/dL 12 - 16 g/dL [place] Interpretation and review of laboratory results Abnormal [place] Lymphocytes (Bld) [#/Vol] 1.90 10*3/uL [place] Lymphocytes/100 WBC (Bld) 25 % 15 - 40 % [place] MCH (RBC) [Entitic mass] 28.8 pg 26 - 34 pg [place] MCHC (RBC) [Mass/Vol] 34.3 g/dL 31 - 37 g/dL M [place], [place] MCV (RBC) [Entitic vol] 84.0 fL 80 - 100 fL [place] Monocytes (Bld) [#/Vol] 0.40 10*3/uL [place] Monocytes/100 WBC (Bld) 5 % 4 - 8 % [place] Platelet mean volume (Bld) [Entitic vol] NOT REPORTED 6 - 12 fL [place] Platelets (Bld) [#/Vol] 167 10*3/uL [place] Platelets (Bld) [#/Vol] NOT REPORTED [place] RBC (Bld) [#/Vol] 4.35 10*6/uL 4 - 5.2 m/uL [place], [place] RBC morphology finding Nom (Bld) NOT REPORTED [place] Segmented neutrophils/100 WBC (Bld) 68 % 47 - 75 % [place] Segs Absolute 5.40 [place] WBC (Bld) [#/Vol] 7.8 10*3/uL [place] WBC (Bld) [#/Vol] NOT REPORTED per 100 WBC [place], [place] WBC Morphology NOT REPORTED [place] Comprehensive Metabolic Pane l w/ Reflex to MGon 09-16-2020 Albumin [Mass/Vol] 4.4 g/dL 3.5 - 5.2 g/dL [place] Albumin/Globulin [Mass ratio] NOT REPORTED [place] ALP [Catalytic activity/Vol] 117 U/L High 35 - 104 U/L [place] ALT [Catalytic activity/Vol] 41 U/L High 5 - 33 U/L [place] Anion gap [Moles/Vol] 10 mmol/L 9 - 17 mmol/L [place] AST [Catalytic activity/Vol] 39 U/L High <32 [place] Bilirubin Ql (U) 0.52 mg/dL 0.3 - 1.2 mg/dL [place] Bun/Cre Ratio 11 [place], [place] Calcium [Mass/Vol] 9.0 mg/dL 8.6 - 10. 4 mg/dL [place] Chloride [Moles/Vol] 101 mmol/L 98 - 10 7 mmol/L [place] CO2 [Moles/Vol] 26 mmol/L 20 - 31 mmol/L [place] Creatinine [Mass/Vol] 1.32 mg/dL High 0.5 - 0.9 mg/dL [place] GFR 54 mL/min Low >60 [place], [place] GFR Non- 44 mL/min Low >60 [place] GFR/1.73 sq M predicted among non-blacks MDRD (S/P/Bld) [Vol rate/Area] [place] Comment on above: Average GFR for 40-4 9 years old: 99 mL/min/1.73sq m Chronic Kidney Disease: <60 mL/min/1.73sq m Kidney failure: <15 mL/min/1.73sq m eGFR calculated using average adult body mass. Additional eGFR calculator available at: http://www.[employer]multiple_crcl_2012.htm GFR/1.73 sq M predicted among non-blacks MDRD (S/P/Bld) [Vol rate/Area] NOT REPORTED [place] Glucose [Mass/Vol] 173 mg/dL High 70 - 99 mg/dL [place], [place] Interpretation and review of laboratory results Abnormal [place] Potassium [Moles/Vol] 3.9 mmol/L 3.7 - 5.3 mmol/L [place] Protein [Mass/Vol] 7.3 g/dL 6.4 - 8.3 g/dL [place] Sodium [Moles/Vol] 137 mmol/L 135 - 144 mmol/L [place] Urea nitrogen [Mass/Vol] 15 mg/dL 6 - 20 mg/dL [place] Otheron 09-16-2020 Immature granulocytes (Bld) [#/Vol] NOT REPORTED [place] Sedimentation Rateon 020 Sed Rate 15 mm 0 - 20 mm [place] Urinalysis, reflex to micros copicon 09-16-2020 Bilirubin Urine Negative NEGATIVE [place] Color, UA YELLOW YELLOW [place] Glucose, Ur Negative NEGATIVE [place] Interpretation and review of laboratory results Abnormal [place] Ketones Ql (U) Negative NEGATIVE [place] Leukocyte esterase Test strip Ql (U) Negative NEGATIVE [place] Nitrite, Urine Negative NEGATIVE [place] pH, UA 5.0 [place] Protein (U) [Mass/Vol] TRACE Abnormal NEGATIVE [place], [place] Specific [place], UA 1.025 [place], [place] Turbidity UA CLEAR CLEAR [place] Urinalysis Comments [place] Urine Hgb Negative NEGATIVE [place] Urobilinogen, Urine Normal Normal [place] C-Reactive Proteinon 020 CRP [Mass/Vol] 6 mg/L High 0 - 5 mg/L [place] Interpretation and review of laboratory results Abnormal [place] CBC With Auto Differentialon 08-24-2020 Basophils (Bld) [#/Vol] 0.00 10*3/uL [place] Basophils/100 WBC (Bld) 1 % 0 - 2 % [place] Differential Type YES [place], [place] Eosinophils (Bld) [#/Vol] 0.10 10*3/uL [place] Eosinophils/100 WBC (Bld) 1 % 0 - 5 % [place] Erythrocyte distribution width (RBC) [Ratio] 16.2 % High 12.1 - 15.2 % [place] Hematocrit (Bld) [Volume fraction] 35.4 % Low 36 - 46 % [place] Hemoglobin (Bld) [Mass/Vol] 12.2 g/dL 12 - 16 g/dL [place] Interpretation and review of laboratory results Abnormal [place] Lymphocytes (Bld) [#/Vol] 1.60 10*3/uL [place] Lymphocytes/100 WBC (Bld) 28 % 15 - 40 % [place] MCH (RBC) [Entitic mass] 29.1 pg 26 - 34 pg [place] MCHC (RBC) [Mass/Vol] 34.5 g/dL 31 - 37 g/dL [place] MCV (RBC) [Entitic vol] 84.2 fL 80 - 100 fL [place] Monocytes (Bld) [#/Vol] 0.40 10*3/uL [place] Monocytes/100 WBC (Bld) 6 % 4 - 8 % [place] Platelet mean volume (Bld) [Entitic vol] NOT REPORTED 6 - 12 fL [place] Platelets (Bld) [#/Vol] 160 10*3/uL [place] Platelets (Bld) [#/Vol] NOT REPORTED [place] RBC (Bld) [#/Vol] 4.20 10*6/uL 4 - 5.2 m/uL [place], [place] RBC morphology finding Nom (Bld) NOT REPORTED [place] Segmented neutrophils/100 WBC (Bld) 64 % 47 - 75 % [place] Segs Absolute 3.80 [place], [place] WBC (Bld) [#/Vol] 5.8 10*3/uL [place] WBC (Bld) [#/Vol] NOT REPORTED per 100 WBC [place], [place] WBC Morphology NOT REPORTED [place] Otheron 08-24-2020 Immature granulocytes (Bld) [#/Vol] NOT REPORTED 0 % [place] Sedimentation Rateon 020 Sed Rate 10 mm 0 - 20 mm [place] C-Reactive Proteinon 020 CRP [Mass/Vol] 2 mg/L 0 - 5 mg/L [place] CBC With Auto Differentialon 07-24-2020 Basophils (Bld) [#/Vol] 0.10 10*3/uL [place] Basophils/100 WBC (Bld) 1 % 0 - 2 % [place] Differential Type YES [place], [place] Eosinophils (Bld) [#/Vol] 0.10 10*3/uL [place] Eosinophils/100 WBC (Bld) 1 % 0 - 5 % [place] Erythrocyte distribution width (RBC) [Ratio] 16.8 % High 12.1 - 15.2 % [place] Hematocrit (Bld) [Volume fraction] 40.0 % 36 - 46 % [place] Hemoglobin (Bld) [Mass/Vol] 13.5 g/dL 12 - 16 g/dL [place] Interpretation and review of laboratory results Abnormal [place] Lymphocytes (Bld) [#/Vol] 1.70 10*3/uL [place] Lymphocytes/100 WBC (Bld) 17 % 15 - 40 % [place] MCH (RBC) [Entitic mass] 29.1 pg 26 - 34 pg [place] MCHC (RBC) [Mass/Vol] 33.8 g/dL 31 - 37 g/dL [place] MCV (RBC) [Entitic vol] 86.0 fL 80 - 100 fL [place] Monocytes (Bld) [#/Vol] 0.50 10*3/uL [place] Monocytes/100 WBC (Bld) 5 % 4 - 8 % [place] Platelet mean volume (Bld) [Entitic vol] NOT REPORTED 6 - 12 fL [place] Platelets (Bld) [#/Vol] NOT REPORTED [place] Platelets (Bld) [#/Vol] 208 10*3/uL [place] RBC (Bld) [#/Vol] 4.65 10*6/uL 4 - 5.2 m/uL [place], [place] RBC morphology finding Nom (Bld) NOT REPORTED [place] Segmented neutrophils/100 WBC (Bld) 76 % High 47 - 75 % [place] Segs Absolute 7.70 High [place] WBC (Bld) [#/Vol] NOT REPORTED per 100 WBC [place] WBC (Bld) [#/Vol] 10.0 10*3/uL [place] WBC Morphology NOT REPORTED [place] Otheron 07-24-2020 Immature granulocytes (Bld) [#/Vol] NOT REPORTED 0 % [place] Sedimentation Rateon 020 Sed Rate 6 mm 0 - 20 mm [place] Protein / creatinine ratio, urineon 06-07-2020 Creatinine, Ur 101.2 mg/dL 28 - 217 mg/dL [place] Protein (U) [Mass/Vol] 8 mg/dL [place] Comment on above: No normal range esta blished. Urine Total Protein Creatinine Ratio 0.08 [place] Urinalysison 06-07-2020 Bilirubin Urine Negative NEGATIVE [place] Color, UA YELLOW YELLOW [place] Glucose, Ur 100 mg/dL Abnormal NEGATIVE [place] Interpretation and review of laboratory results Abnormal [place] Ketones Ql (U) Negative NEGATIVE [place] Leukocyte esterase Test strip Ql (U) Negative NEGATIVE [place] Nitrite, Urine Negative NEGATIVE [place] pH, UA 6.0 [place] Protein (U) [Mass/Vol] Negative NEGATIVE [place], [place] Specific [place], UA 1.020 [place], [place] Turbidity UA CLEAR CLEAR [place] Urinalysis Comments [place] Urine Hgb Negative NEGATIVE [place] Urobilinogen, Urine Normal Normal [place] Comprehensive Metabolic Pane ananda 05-25-2020 Albumin [Mass/Vol] 4.4 g/dL 3.5 - 5.2 g/dL [place] Albumin/Globulin [Mass ratio] NOT REPORTED [place] ALP [Catalytic activity/Vol] 87 U/L 35 - 104 U/L [place] ALT [Catalytic activity/Vol] 21 U/L 5 - 33 U/L [place] Anion gap [Moles/Vol] 10 mmol/L 9 - 17 mmol/L [place] AST [Catalytic activity/Vol] 22 U/L <32 [place] Bilirubin Ql (U) 0.32 mg/dL 0.3 - 1.2 mg/dL [place] Bun/Cre Ratio 18 [place], [place] Calcium [Mass/Vol] 10.1 mg/dL 8.6 - 10. 4 mg/dL [place] Chloride [Moles/Vol] 104 mmol/L 98 - 10 7 mmol/L [place] CO2 [Moles/Vol] 26 mmol/L 20 - 31 mmol/L [place] Creatinine [Mass/Vol] 1.37 mg/dL High 0.5 - 0.9 mg/dL [place] GFR 52 mL/min Low >60 [place], [place] GFR Non- 43 mL/min Low >60 [place] GFR/1.73 sq M predicted among non-blacks MDRD (S/P/Bld) [Vol rate/Area] NOT REPORTED [place] GFR/1.73 sq M predicted among non-blacks MDRD (S/P/Bld) [Vol rate/Area] [place] Comment on above: Average GFR for 40-4 9 years old: 99 mL/min/1.73sq m Chronic Kidney Disease: <60 mL/min/1.73sq m Kidney failure: <15 mL/min/1.73sq m eGFR calculated using average adult body mass. Additional eGFR calculator available at: http://www.[employer]multiple_crcl_2012.htm Glucose [Mass/Vol] 160 mg/dL High 70 - 99 mg/dL [place], [place] Interpretation and review of laboratory results Abnormal [place] Potassium [Moles/Vol] 4.6 mmol/L 3.7 - 5.3 mmol/L [place] Protein [Mass/Vol] 7.4 g/dL 6.4 - 8.3 g/dL [place] Sodium [Moles/Vol] 140 mmol/L 135 - 144 mmol/L [place] Urea nitrogen [Mass/Vol] 24 mg/dL High 6 - 20 mg/dL [place] Hemoglobin A1Con 05-25-2020 Glucose [Mass/Vol] 123 mg/dL [place] Comment on above: The ADA and AACC rec ommend providing the estimated average glucose result to permit better patient understanding of their HBA1c result. HbA1c (Bld) [Mass fraction] 5.9 % 4 - 6 % [place] LDL Cholesterol, Directon Cholesterol in LDL [Mass/Vol] 58 mg/dL <100 [place] Lipid Panelon 05-25-2020 Cholesterol [Mass/Vol] 194 mg/dL <200 [place] Comment on above: Cholesterol Guidelines: <200 Desirable 200-240 Borderline >240 Undesirable Cholesterol in HDL [Mass/Vol] 27 mg/dL Low >40 [place] Comment on above: HDL Guidelines: <40 Undesirable 40-59 Borderline >59 Desirable Cholesterol in LDL [Mass/Vol] 0 - 130 mg/dL [place] Comment on above: Calculation not jacqueline d for Triglyceride value greater than 400 mg/dL. Direct LDL reflexed LDL Guidelines: <100 Desirable 100-129 Near to/above Desirable 130-159 Borderline >159 Undesirable Direct (measured) LDL and calculated LDL are not interchangeable tests. Cholesterol in VLDL [Mass/Vol] NOT REPORTED 1 - 30 mg/dL [place] Cholesterol.total/Chol esterol in HDL [Mass ratio] 7.2 {ratio} High <5 [place] Interpretation and review of laboratory results Abnormal [place] Triglyceride [Mass/Vol] 1112 mg/dL High <150 [place], [place] Comment on above: Triglyceride Guidelines: <150 Desirable 150-199 Borderline 200-499 High >499 Very high Based on AHA Guidelines for fasting triglyceride, July 2012. Patient Fasting?on 0 Patient Fasting? YES [facility], [place] Vitamin D 25 Hydroxyon 05-25 Vit D, 25-Hydroxy 30.2 ng/mL 30 - 100 ng/mL [place] Comment on above: Reference Range: Vitamin D status Range Deficiency <20 ng/mL Mild Deficiency 20-30 ng/mL Sufficiency 30-100 ng/mL Toxicity >100 ng/mL C-Reactive Proteinon 020 CRP [Mass/Vol] 6.2 mg/L High 0 - 5 mg/L [place] Interpretation and review of laboratory results Abnormal [place] Hemoglobin [id number] By: Kevin delgado Edendyanharinder on 09-24-2019 Glucose [Mass/Vol] 108 mg/dL [employer] Phone: Comment on above: The ADA and AACC rec ommend providing the estimated average glucose result to permit better patient understanding of their HBA1c result. HbA1c (Bld) [Mass fraction] 5.4 % 4.8 - 5.9 % [employer] Phone: Homocysteine, SerumOrdered B y: Janel Allen on 09-24-2019 Homocysteine 9 umol/L <15.0 [employer] Phone: TSH without ReflexOrdered By : Janel Tiffany on 09-24-2019 TSH Qn 1.03 m[IU]/L [employer] Phone: Vitamin B12 & FolateOrdered By: Janel Tiffany on 09-24-2019 Cobalamin (Vitamin B12) [Mass/Vol] 292 pg/mL 232 - 1245 pg/mL [employer] Phone: Folate 13.8 ng/mL >4.8 [employer] Phone: XR CERVICAL SPINE (4-5 VIEWS )on 07-29-2019 Mild degenerative changes cervical spine not unusual for age. Refer to the [facility] [place] [facility] services 02/03/2019 with some of the findings discussed above. [place] EXAM: XR CERVICAL SPINE (4-5 VIEWS) HISTORY: Reason for exam:->history MRSA discitis of thoracic region. New tingling and numbness of fingers COMPARISON: MRI cervical spine [facility] 02/03/2019, cervical spine series 04/03/2010. The [...] Swimmer's lateral view shows no additional abnormality. [place] Lior, [facility] Incoming Radiant Results From [employer] 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 New tingling and numbness of fingers COMPARISON: MRI cervical spine [facility] 02/03/2019, cervical spine series 04/03/2010. The [...] unusual for age. Refer to the [facility] [place] Imaging services 02/03/2019 with some of the findings discussed above. [place] C-Reactive ProteinOrdered By : Azalea Knight on 07-28-2019 CRP [Mass/Vol] 6.4 mg/L High 0 - 5 mg/L [place] Interpretation and review of laboratory results Abnormal [place] CBC With Auto DifferentialOr dered By: Azalea Knight on 07-28-2019 Absolute Eos # 0.10 [place] Absolute Immature Granulocyte NOT REPORTED [place] Absolute Lymph # 2.10 [place] Absolute [place] # 0.50 [place] Basophils (Bld) [#/Vol] 0.00 10*3/uL [place] Basophils/100 WBC (Bld) 1 % 0 - 2 % [place] Differential Type YES [place], [place] Eosinophils/100 WBC (Bld) 1 % 0 - 5 % [place] Erythrocyte distribution width (RBC) [Ratio] 14.5 % 12.1 - 15.2 % [place] Hematocrit (Bld) [Volume fraction] 38.1 % 36 - 46 % [place] Hemoglobin (Bld) [Mass/Vol] 12.9 g/dL 12 - 16 g/dL [place] Immature Granulocytes NOT REPORTED 0 % M [place], [place] Lymphocytes/100 WBC (Bld) 34 % 15 - 40 % [place] MCH (RBC) [Entitic mass] 29.5 pg 26 - 34 pg [place] MCHC (RBC) [Mass/Vol] 33.9 g/dL 31 - 37 g/dL [place] MCV (RBC) [Entitic vol] 87.1 fL 80 - 100 fL [place] Monocytes/100 WBC (Bld) 8 % 4 - 8 % [place] MPV NOT REPORTED 6 - 12 fL [place] NRBC Automated NOT REPORTED per 100 WBC [place], [place] Platelet Estimate NOT REPORTED [place] Platelets (Bld) [#/Vol] 222 10*3/uL [place] RBC (Bld) [#/Vol] 4.38 10*6/uL 4 - 5.2 m/uL [place], [place] RBC morphology finding Nom (Bld) NOT REPORTED [place] Segmented neutrophils/100 WBC (Bld) 56 % 47 - 75 % [place] Segs Absolute 3.50 [place], [place] WBC (Bld) [#/Vol] 6.2 10*3/uL [place] WBC Morphology NOT REPORTED [place] Sedimentation RateOrdered By : Azalea Aroramichoacano on 07-28-2019 Sed Rate 19 mm 0 - 30 mm [place] C-Reactive Proteinon 019 CRP [Mass/Vol] 7.3 mg/L High 0 - 5 mg/L [place] Interpretation and review of laboratory results Abnormal [place] Albuminon 06-17-2019 Albumin [Mass/Vol] 4.3 g/dL 3.5 - 5.2 g/dL [place], [place] BUN & Creatinineon 9 Creatinine [Mass/Vol] 1.27 mg/dL High 0.5 - 0.9 mg/dL [place] GFR 56 mL/min Low >60 [place], [place] GFR Non- 47 mL/min Low >60 [place] GFR/1.73 sq M predicted among non-blacks MDRD (S/P/Bld) [Vol rate/Area] NOT REPORTED [place] GFR/1.73 sq M predicted among non-blacks MDRD (S/P/Bld) [Vol rate/Area] [place] Comment on above: Average GFR for 40-4 9 years old: 99 mL/min/1.73sq m Chronic Kidney Disease: <60 mL/min/1.73sq m Kidney failure: <15 mL/min/1.73sq m eGFR calculated using average adult body mass. Additional eGFR calculator available at: http://www.[employer]/multiple_crcl_2012.htm Interpretation and review of laboratory results Abnormal [place] Urea nitrogen [Mass/Vol] 18 mg/dL 6 - 20 mg/dL [place] Calciumon 06-17-2019 Calcium [Mass/Vol] 10.4 mg/dL 8.6 - 10. 4 mg/dL [place] Electrolyte Panelon 06-17-20 19 Anion gap [Moles/Vol] 13 mmol/L 9 - 17 mmol/L [place] Chloride [Moles/Vol] 103 mmol/L 98 - 10 7 mmol/L [place] CO2 [Moles/Vol] 24 mmol/L 20 - 31 mmol/L [place] Potassium [Moles/Vol] 3.8 mmol/L 3.7 - 5.3 mmol/L [place] Sodium [Moles/Vol] 140 mmol/L 135 - 144 mmol/L [place] Hemoglobin and Hematocrit, B loodon 06-17-2019 Hematocrit (Bld) [Volume fraction] 35.4 % Low 36 - 46 % [place] Hemoglobin (Bld) [Mass/Vol] 12.1 g/dL 12 - 16 g/dL [place] Interpretation and review of laboratory results Abnormal [place] Magnesiumon 06-17-2019 Magnesium [Mass/Vol] 2.3 mg/dL 1.6 - 2 .6 mg/dL [place] Microscopic Urinalysison Amorphous, UA NOT REPORTED None [place], [place] Bacteria, UA 1+ Abnormal None [place] Casts UA NOT REPORTED /LPF [place] Crystals UA NOT REPORTED None /HPF [place] Epithelial Cells UA 2 TO 5 /HPF [place] Interpretation and review of laboratory results Abnormal [place] Mucus, UA NOT REPORTED None [place] Other Observations UA NOT REPORTED NOT REQ. [place] RBC (U) [#/Vol] NOT REPORTED [place], [place] Renal Epithelial, Urine NOT REPORTED 0 /HPF [place] Trichomonas, UA NOT REPORTED None [place], [place] WBC, UA 0 TO 2 0 /HPF [place] Yeast, UA NOT REPORTED None [place], [place] - [place] Phosphoruson 06-17-2019 Phosphate [Mass/Vol] 3.0 mg/dL 2.6 - 4 .5 mg/dL [place] Protein / creatinine ratio, urineon 06-17-2019 Creatinine, Ur 228.2 mg/dL High 28 - 217 mg/dL [place] Interpretation and review of laboratory results Abnormal [place] Protein (U) [Mass/Vol] 18 mg/dL [place] Comment on above: No normal range esta blished. Urine Total Protein Creatinine Ratio 0.08 [place] Sedimentation Rateon 019 Sed Rate 24 mm 0 - 30 mm [place] Urinalysison 06-17-2019 Bilirubin Urine Negative NEGATIVE [place] Color, UA YELLOW YELLOW [place] Glucose, Ur Negative NEGATIVE [place] Interpretation and review of laboratory results Abnormal [place] Ketones Ql (U) Negative NEGATIVE [place] Leukocyte esterase Test strip Ql (U) Negative NEGATIVE [place] Nitrite, Urine Negative NEGATIVE [place] pH, UA 6.0 [place] Protein (U) [Mass/Vol] TRACE Abnormal NEGATIVE [place], [place] Specific [place], UA 1.025 [place], [place] Turbidity UA HAZY Abnormal CLEAR [place] Urinalysis Comments [place] Urine Hgb Negative NEGATIVE [place] Urobilinogen, Urine Normal Normal [place] MR CERVICAL SPINE WITHOUT CO NTRASTon [...] or cord edema. /cdr Workstation ID: [id number] [facility] EXAMINATION: MR CERVICAL SPINE WITHOUT CONTRAST [...] creating probable mild left-sided neural foraminal stenosis. [facility], [facility]ad In Aric Mohanq - 02/03/2019 [...] be due to myelomalacia or cord edema. /[facility] Workstation ID: [id number] [facility] MR CERVICAL SPINE WITHOUT CONTRAST EXAMINATION: [...] be due to myelomalacia or cord edema. /[facility] Workstation ID: [id number] Dictated by: RONALD MCCRAY on ThuFebruary 03, 2019 10:34:16 AM EDT Transcribed by: FELICITY DE JESUS on ThuFebruary 03, 2019 10:58:51 AM EDT Finalized by: RONALD MCCRAY on ThuFebruary 03, 2019 10:59:35 AM EDT Normal [facility] Comment on above: Order Comment: Reaso n [...] 48 DAYS Report Status FINAL 10/11/2018 Normal [facility] Comment on above: Performed By: #### T ROPI #### [employer] [address] [place] [id number] Cult,Mycobacteria Specimen Description .SPINE .TISSUE T4 LAMINA Special Requests NOT REPORTED Direct Exam NO ACID FAST BACILLI SEEN (DIRECT SMEAR) Culture NO GROWTH 48 DAYS Report Status FINAL 10/11/2018 [facility] Comment on above: Performed By: #### L ACWB #### [employer] [address] [place] [address] Cult,Funguson 09-27-2018 Cult,Fungus Specimen Description .TISSUE EPIDURAL TISSUE Special Requests NOT REPORTED Culture NO GROWTH 34 DAYS Report Status FINAL 09/27/2018 Normal [facility] Comment on above: Performed By: #### L ACWB #### [facility] [address] [place], [place] [id number] Cult,Fungus Specimen Description .SPINE .TISSUE T4 LAMINA Special Requests NOT REPORTED Culture NO GROWTH 34 DAYS Report Status FINAL 09/27/2018 Normal [facility] Comment on above: Performed By: #### L ACWB #### [facility] [address] [place] [address] BUNon 09-23-2018 Urea nitrogen mass conc 20 mg/dL Normal 03-27 [facility] Comment on above: Performed By: #### 2 [id number] ####[facility] [address] [place] [address] Creatinineon 09-23-2018 Creatinine mass conc 1.3 mg/dL High 0.5-1.1 [facility] Comment on above: Performed By: #### 2 [id number] ####[facility] [id number] [place] [address] eGFRon 09-23-2018 eGFR AA 54 mL/min/1.73 m2 [facility] Comment on above: Order Comment: Order added by Discern Expert. Performed By: #### 2 [id number] ####[facility] [id number] [place] [address] GFR/1.73 sq M predicted among non-blacks MDRD vol rate/area (S/P/Bld) 45 mL/min/1.73 m2 [facility] Comment on above: Order Comment: Order added by Discern Expert. Performed By: #### 2 [id number] ####[facility] [id number] [place] [address] Auto Diffon 09-20-2018 Basophils Auto #/vol (Bld) 0.0 E3/mcL Normal 0.0-0.2 [facility] Comment on above: Order Comment: Order Added by Discern Expert. Performed By: #### 2 [id number] ####[facility] [address] [place] [address] Basophils/100 WBC Auto (Bld) 1.1 % Normal 0.0-2.0 [facility] Comment on above: Order Comment: Order Added by Discern Expert. Performed By: #### 2 [id number] ####[facility] [address] [place] [address] Eos Absolute 0.0 E3/mcL Normal 0.0-0.7 [facility] Comment on above: Order Comment: Order Added by Discern Expert. Performed By: #### 2 [id number] ####[facility] [id number] [place] [address] Eosinophils/100 WBC Auto (Bld) 0.3 % Normal 0.0-11.0 [facility] Comment on above: Order Comment: Order Added by Discern Expert. Performed By: #### 2 [id number] ####[address] [address] [place] [address] Lymphocytes Auto #/vol (Bld) 1.2 E3/mcL Normal 1.2-3.4 [facility] Comment on above: Order Comment: Order Added by Discern Expert. Performed By: #### 2 [id number] ####[facility] [address] [place] [address] Lymphocytes/100 WBC Auto (Bld) 30.6 % Normal 20.0-55.0 [facility] Comment on above: Order Comment: Order Added by Discern Expert. Performed By: #### 2 [id number] ####OVID[facility] [id number] [place] [address] [place] Absolute 0.4 E3/mcL Normal 0.0-0.7 [facility] Comment on above: Order Comment: Order Added by Discern Expert. Performed By: #### 2 [id number] ####OVIDIO [address] [place] [address] Monocytes/100 WBC Auto (Bld) 10.2 % High 0.0-10.0 [facility] Comment on above: Order Comment: Order Added by Discern Expert. Performed By: #### 2 [id number] ####OVID[facility] [address] [place] [address] Neutro Absolute 2.3 E3/mcL Normal 1.4-6.5 [facility] Comment on above: Order Comment: Order Added by Discern Expert. Performed By: #### 2 [id number] ####[facility] [address] [place] [address] Neutro Auto 57.8 % Normal 37.0-75.0 [facility] Comment on above: Order Comment: Order Added by Discern Expert. Performed By: #### 2 [id number] ####[facility] [address] [place] [address] CBC w/ Auto Diffon 8 Erythrocyte distribution width Auto Ratio (RBC) 19.9 % High 11.5-14.5 [facility] Comment on above: Performed By: #### 2 [id number] ####[facility] [address] [place] [address] Hematocrit Auto Volume Fraction (Bld) 26.5 % Low 36.0-48.0 [facility] Comment on above: Performed By: #### 2 [id number] ####OVID[facility] [address] [place] [id number] Hemoglobin mass conc (Bld) 8.7 g/dL Low 12.0-16.0 [facility] Comment on above: Performed By: #### 2 [id number] ####[address] [address] [place] [address] MCH Auto Entitic mass (RBC) 29.6 pg Normal 27.0-31.0 [facility] Comment on above: Performed By: #### 2 [id number] ####[address] [place] [address] MCHC Auto mass conc (RBC) 32.9 g/dL Low 33.0-37.0 [facility] Comment on above: Performed By: #### 2 [id number] ####[facility] [address] [place] [address] MCV Auto Entitic volume (RBC) 89.8 fL Normal 78.0-100.0 [facility] Comment on above: Performed By: #### 2 [id number] ####[facility] [address] [place] [address] Platelet mean volume Auto Entitic volume (Bld) 10.5 fL Normal 7.4-11.0 [facility] Comment on above: Performed By: #### 2 [id number] ####OVIDIO AvalosNhcOaml0498 [place] [address] Platelets Auto #/vol (Bld) 117 E3/mcL Low 130-400 [facility] Comment on above: Performed By: #### 2 [id number] ####OVIDIO AvalosWpdOnvy6796 [place] [address] RBC Auto #/vol (Bld) 2.95 E6/mcL Low 3.90-5.40 [facility] Comment on above: Performed By: #### 2 [id number] ####OVIDIO Valleo[address] [place] [address] WBC Auto #/vol (Bld) 4.0 E3/mcL Normal 3.6-11.0 [facility] Comment on above: Performed By: #### 2 [id number] ####OVIDIO AvalosLxlZufk5134 [place] [address] CRPon 09-20-2018 CRP mass conc 0.83 mg/dL Normal 0.00-1.00 [facility] Comment on above: Performed By: #### 2 [id number] ####OVIDIO AvalosTexAjkx0474 [place] [address] Morphon 09-20-2018 Anisocytosis Auto Ql (Bld) 1+ Normal [facility] Comment on above: Order Comment: Order Added by Discern Expert. Performed By: #### 1 [id number] ####OVIDIO AvalosHmlDmky9971 [place] [address] Hypochromasia 1+ Normal [facility] Comment on above: Order Comment: Order Added by Discern Expert. Performed By: #### 1 [id number] ####OVIDIO AvalosDtqKblv3025 [place] [address] RBC morphology finding Nom (Bld) SEE MORPHOLOGY Normal [facility] Comment on above: Order Comment: Order Added by Discern Expert. Performed By: #### 1 [id number] ####OVIDIO AvalosCdzFxjb6548 [place] [address] Sed Rate Automatedon 018 Sed Rate Automated 15 mm/hr Normal [facility] Comment on above: Result Comment: AGE- SPECIFIC REFERENCE RANGES FOR SEDIMENTATION RATE AUTOMATED REFERENCE RANGE - MM/HR AGE MEN WOMEN 0-2 0-2 - PUBERTY 3-13 3-13 PUBERTY - 50 YRS 0-15 0-20 > 50 YRS 0-20 0-30 Performed By: #### 1 [id number] ####OVIDIO Hematology Manual [address]zb[address] [place] [id number] zzplt morphon 09-20-2018 Platelet morphology finding Nom (Bld) NORMAL Normal [facility] Comment on above: Performed By: #### 9 [id number] ####OVIDIO PryJlja2736 [place] [id number] Platelets Auto #/vol (Bld) NORMAL Normal [facility] Comment on above: Performed By: #### 9 [id number] ####OVIDIO AhwBqlz2751 [place] [address] BLOOD UREA NITROGENon 2017 Urea nitrogen mass conc (Bld) 19 mg/dL Normal 7-20 [facility] Comment on above: Performed By: #### A CBC, ESR, BUN, CREAT, CREACT, FX ####Testing performed at [place] [id number] C REACTIVE PROTEINon 018 CRP mass conc 18.5 mg/L High 0-10.0 [facility] Comment on above: Performed By: #### A CBC, ESR, BUN, CREAT, CREACT, FX ####Testing performed at [address] [address] CBCon 09-13-2018 ABSOLUTE BAS 0.1 X10 Normal [facility] Comment on above: Performed By: #### A CBC, ESR, BUN, CREAT, CREACT, FX ####Testing performed at [address] [address] ABSOLUTE EOS 0.20 X10 Normal [facility] Comment on above: Performed By: #### A CBC, ESR, BUN, CREAT, CREACT, FX ####Testing performed at [facility] [address] [place] [address] ABSOLUTE NEUTROPHIL COUNT 2.5 x10 Normal 1.0-7.0 [facility] Comment on above: Performed By: #### A CBC, ESR, BUN, CREAT, CREACT, FX ####Testing performed at [address] [address] Basophils/100 WBC Auto (Bld) 1.4 % Normal 0.0-2.0 [facility] Comment on above: Performed By: #### A CBC, ESR, BUN, CREAT, CREACT, FX ####Testing performed at [address] [address] DTYPE AUTO DIFF Normal [facility] Comment on above: Performed By: #### A CBC, ESR, BUN, CREAT, CREACT, FX ####Testing performed at [address] [address] Eosinophils/100 WBC Auto (Bld) 3.5 % Normal 0.0-11.0 [facility] Comment on above: Performed By: #### A CBC, ESR, BUN, CREAT, CREACT, FX ####Testing performed at [address] [address] Lymphocytes Auto #/vol (Bld) 1.10 X10 Normal [facility] Comment on above: Performed By: #### A CBC, ESR, BUN, CREAT, CREACT, FX ####Testing performed at [address] [address] Lymphocytes/100 WBC Auto (Bld) 27.0 % Normal 20.0-55.0 [facility] Comment on above: Performed By: #### A CBC, ESR, BUN, CREAT, CREACT, FX ####Testing performed at [address] [address] Monocytes Auto #/vol (Bld) 0.4 X10 Normal [facility] Comment on above: Performed By: #### A CBC, ESR, BUN, CREAT, CREACT, FX ####Testing performed at [address] [address] Monocytes/100 WBC Auto (Bld) 9.4 % Normal 0.0-10.0 [facility] Comment on above: Performed By: #### A CBC, ESR, BUN, CREAT, CREACT, FX ####[place] [address] Neutrophils/100 WBC Auto (Bld) 58.7 % Normal 37.0-75.0 [facility] Comment on above: Performed By: #### A CBC, ESR, BUN, CREAT, CREACT, FX ####[place] [address] Erythrocyte distribution width Auto Ratio (RBC) 17.6 % High 11.5-14.5 [facility] Comment on above: Performed By: #### A CBC, ESR, BUN, CREAT, CREACT, FX ####[place] [address] Hematocrit Auto Volume Fraction (Bld) 26.2 % Low 36.0-48.0 [facility] Comment on above: Performed By: #### A CBC, ESR, BUN, CREAT, CREACT, FX ####[place] [address] Hemoglobin mass conc (Bld) 8.8 g/dL Low 12.0-16.0 [facility] Comment on above: Performed By: #### A CBC, ESR, BUN, CREAT, CREACT, FX ####[place] [address] MCH Auto Entitic mass (RBC) 29.3 pg Normal 26.0-35.0 [facility] Comment on above: Performed By: #### A CBC, ESR, BUN, CREAT, CREACT, FX ####[place] [address] MCHC Auto mass conc (RBC) 33.7 g/dL Normal 27.0-37.0 [facility] Comment on above: Performed By: #### A CBC, ESR, BUN, CREAT, CREACT, FX ####[place] [address] MCV Auto Entitic volume (RBC) 86.9 fL Normal 80.0-100.0 [facility] Comment on above: Performed By: #### A CBC, ESR, BUN, CREAT, CREACT, FX ####[place] [address] Platelet mean volume Auto Entitic volume (Bld) 10.1 fL Normal 7.4-11.0 [facility] Comment on above: Performed By: #### A CBC, ESR, BUN, CREAT, CREACT, FX ####[place] [address] Platelets Auto #/vol (Bld) 130 /cmm Normal 130.0-400.0 [facility] Comment on above: Performed By: #### A CBC, ESR, BUN, CREAT, CREACT, FX ####[place] [address] RBC Auto #/vol (Bld) 3.01 /cmm Low 4.0-5.4 [facility] Comment on above: Performed By: #### A CBC, ESR, BUN, CREAT, CREACT, FX ####[place] [address] WBC Auto #/vol (Bld) 4.2 /cmm Normal 3.6-11.0 [facility] Comment on above: Performed By: #### A CBC, ESR, BUN, CREAT, CREACT, FX ####[place] [address] CREATININE,SERUMon 8 Creatinine mass conc 1.5 mg/dL High 0.52-1.04 [facility] Comment on above: Performed By: #### A CBC, ESR, BUN, CREAT, CREACT, FX ####[place] [address] EST. GFR, 50 ml/min/1.73sq.m Normal [facility] Comment on above: Performed By: #### A CBC, ESR, BUN, CREAT, CREACT, FX ####[place] [address] EST. GFR,Non 41 ml/min/1.73sq.m [facility] Comment on above: Performed By: #### A CBC, ESR, BUN, CREAT, CREACT, FX ####[place] [address] GFR/1.73 sq M predicted among non-blacks MDRD vol rate/area (S/P/Bld) Average GFR for 30-39 years old = 109. [facility] Comment on above: Result Comment: Director Of Broadcast vasu Kidney disease, GFR = <60.Kidney failure, GFR = <15.The GFR estimate is not adjusted for extreme body surface area or acute process, nor has it been validated for women or ethnic groups other than and . Performed By: #### A CBC, ESR, BUN, CREAT, CREACT, FX ####[place] [address] ESRon 09-13-2018 ESR Velocity (Bld) 49 mm/h High 0-15 [facility] Comment on above: Performed By: #### A CBC, ESR, BUN, CREAT, CREACT, FX ####Testing performed at [place] [id number] FAX REQUESTon 09-13-2018 FAX TO FAX TO DR HARTMAN AT [phone] AND TO [employer] AT [phone] [facility] Comment on above: Performed By: #### P HY, BUN, CREAT, FX ####Testing performed at [address] [address] FAX REQUESTon 09-06-2018 FAX TO [phone] [facility] Comment on above: Performed By: #### F X ####Testing performed at [place] [id number] BLOOD UREA NITROGENon 2017 Urea nitrogen mass conc (Bld) 21 mg/dL High 7-20 [facility] Comment on above: Performed By: #### P HY, BUN, CREAT, FX ####Testing performed at [place] [id number] CREATININE,SERUMon 8 Creatinine mass conc 1.4 mg/dL High 0.52-1.04 [facility] Comment on above: Performed By: #### P HY, BUN, CREAT, FX ####Testing performed at [place] [id number] EST. GFR, 54 ml/min/1.73sq.m [facility] Comment on above: Performed By: #### P HY, BUN, CREAT, FX ####Testing performed at [place] [id number] EST. GFR,Non 44 ml/min/1.73sq.m [facility] Comment on above: Performed By: #### P HY, BUN, CREAT, FX ####[place] [address] GFR/1.73 sq M predicted among non-blacks MDRD vol rate/area (S/P/Bld) Average GFR for 30-39 years old = 109. [facility] Comment on above: Result Comment: Director Of Broadcast vasu Kidney disease, GFR = <60.Kidney failure, GFR = <15.The GFR estimate is not adjusted for extreme body surface area or acute process, nor has it been validated for women or ethnic groups other than and . Performed By: #### P HY, BUN, CREAT, FX ####Testing performed at [place] [id number] FAX REQUESTon 08-31-2018 FAX TO [phone] [facility] Comment on above: Performed By: #### P HY, BUN, CREAT, FX ####Testing performed at [address] [address] KATERINE VINCENT PHYSICIANmateo 08-31-20 18 [facility] PHYSICIAN DEVAN UP [facility] Comment on above: Performed By: #### P HY, BUN, CREAT, FX ####Testing performed at [address] [address] BUNon 08-27-2018 Urea nitrogen mass conc 24 mg/dL High 03-27 [facility] Comment on above: Performed By: #### 2 [id number] ####OVIDIO [id number] [place] [address] Creatinineon 08-27-2018 Creatinine mass conc 1.6 mg/dL High 0.5-1.1 [facility] Comment on above: Performed By: #### 2 [id number] ####OVIDIO [address]vqdfh[address]71 [place] [address] eGFRon 08-27-2018 eGFR AA 43 mL/min/1.73 m2 [facility] Comment on above: Order Comment: Order added by Discern Expert. Performed By: #### 1 [id number] ####OVIDIO AqiNorj8215 [place] [address] GFR/1.73 sq M predicted among non-blacks MDRD vol rate/area (S/P/Bld) 36 mL/min/1.73 m2 [facility] Comment on above: Order Comment: Order added by Discern Expert. Performed By: #### 1 [id number] ####OVIDIO FkwSbjj0643 [place] [address] Cult,Tissueon 08-26-2018 Cult,Tissue Specimen Description .TISSUE EPIDURAL [...] By: #### L ACWB #### [facility] [employer] [facility] [place], [place] [id number] Cult,Tissue Specimen Description .SPINE .TISSUE T4 LAMINA [...] By: #### L ACWB #### [facility] [employer] [address] [place] [address] Basic Metabolic Profon 08-25 (cont.) Normal [facility] Comment on above: Result Comment: Aver age GFR for 30-39 years old: 107 mL/min/1.73sq m Chronic Kidney Disease: <60 mL/min/1.73sq m Kidney failure: <15 mL/min/1.73sq m eGFR calculated using average adult body mass. Additional eGFR calculator available at: http://www.[employer]multiple_crcl_2012.htm Performed By: #### L ACWB #### [facility] [employer] [address] [place] [address] Anion gap molar conc 14 mmol/L Normal 9-17 [facility] Comment on above: Performed By: #### L ACWB #### [facility] [address] [place] [address] Calcium mass conc 9.1 mg/dL Normal 8.6-10.4 [facility] Comment on above: Performed By: #### L ACWB #### [facility] [employer] [address] [place] [address] Chloride molar conc 96 mmol/L Low 98-107 [facility] Comment on above: Performed By: #### L ACWB #### [facility] [address] [place] [address] CO2 molar conc 23 mmol/L Normal 20-31 [facility] Comment on above: Performed By: #### L ACWB #### [facility] [address] [place] [address] Creatinine mass conc 1.52 mg/dL High 0.50-0.90 [facility] Comment on above: Performed By: #### L ACWB #### [facility] [address] [place] [address] GFR, Amer 46 mL/min Low >60 [facility] Comment on above: Performed By: #### L ACWB #### [facility] [employer] [address] [place] [address] GFR,non Amer 38 mL/min Low >60 [facility] Comment on above: Performed By: #### L ACWB #### [facility] [employer] [address] [place] [address] Glucose mass conc 95 mg/dL Normal 70-99 [facility] Comment on above: Performed By: #### L ACWB #### [facility] [employer] [address] [place] [address] Potassium molar conc 4.5 mmol/L Normal 3.7-5.3 [facility] Comment on above: Performed By: #### L ACWB #### [facility] [employer] [address] [place] [address] Sodium molar conc 133 mmol/L Low 135-144 [facility] Comment on above: Performed By: #### L ACWB #### [facility] [employer] [address] [place] [address] Urea nitrogen mass conc 43 mg/dL High 6-20 [facility] Comment on above: Performed By: #### L ACWB #### [address] [address] BUN/CRE Ratio NOT REPORTED Normal - [facility] Comment on above: Performed By: #### L ACWB #### [address] [address] Staging: NOT REPORTED Normal [facility] Comment on above: Performed By: #### L ACWB #### [address] [address] CBC with Diffon 08-25-2018 Abs. Basophil 0.07 k/uL Normal 0.00-0.20 [facility] Comment on above: Performed By: #### L ACWB #### [address] [address] Abs.Imm.Granulocyte 0.08 k/uL Normal 0.00-0.30 [facility] Comment on above: Performed By: #### L ACWB #### [address] [address] Abs.Neutrophil (Seg) 5.77 k/uL Normal 1.50-8.10 [facility] Comment on above: Performed By: #### L ACWB #### [address] [address] Basophils/100 WBC (Bld) 1 % Normal 0-2 [facility] Comment on above: Performed By: #### L ACWB #### [address] [address] Eosinophils #/vol (Bld) 0.12 10*3/uL Normal 0.00-0.44 [facility] Comment on above: Performed By: #### L ACWB #### [address] [address] Eosinophils/100 WBC (Bld) 1 % Normal 1-4 [facility] Comment on above: Performed By: #### L ACWB #### [address] [address] Immature granulocytes #/vol (Bld) 1 % High 0 [facility] Comment on above: Performed By: #### L ACWB #### [address] [address] Lymphocytes #/vol (Bld) 1.83 10*3/uL Normal 1.10-3.70 [facility] Comment on above: Performed By: #### L ACWB #### [address] [address] Lymphocytes/100 WBC (Bld) 21 % Low 24-43 [facility] Comment on above: Performed By: #### L ACWB #### [address] [address] Monocytes #/vol (Bld) 0.92 10*3/uL Normal 0.10-1.20 [facility] Comment on above: Performed By: #### L ACWB #### [address] [address] Monocytes/100 WBC (Bld) 11 % Normal 3-12 [facility] Comment on above: Performed By: #### L ACWB #### [address] [address] Neutrophil (Seg) 66 % High 36-65 [facility] Comment on above: Performed By: #### L ACWB #### [address] [address] Erythrocyte distribution width Ratio (RBC) 14.6 % High 11.8-14.4 [facility] Comment on above: Performed By: #### L ACWB #### [address] [address] Hematocrit Volume Fraction (Bld) 32.6 % Low 36.3-47.1 [facility] Comment on above: Performed By: #### L ACWB #### [address] [address] Hemoglobin mass conc (Bld) 10.0 g/dL Low 11.9-15.1 [facility] Comment on above: Performed By: #### L ACWB #### [address] [address] MCH Entitic mass (RBC) 28.2 pg Normal 25.2-33.5 [facility] Comment on above: Performed By: #### L ACWB #### [address] [address] MCHC mass conc (RBC) 30.7 g/dL Normal 28.4-34.8 [facility] Comment on above: Performed By: #### L ACWB #### [address] [address] MCV Entitic volume (RBC) 91.8 fL Normal 82.6-102.9 [facility] Comment on above: Performed By: #### L ACWB #### [address] [address] NRBC Automated 0.0 per 100 WBC Normal 0.0 [facility] Comment on above: Performed By: #### L ACWB #### [address] [address] Platelet mean volume Entitic volume (Bld) 10.4 fL Normal 8.1-13.5 [facility] Comment on above: Performed By: #### L ACWB #### [address] [address] Platelets #/vol (Bld) 292 10*3/uL Normal 138-453 [facility] Comment on above: Performed By: #### L ACWB #### [address] [address] RBC #/vol (Bld) 3.55 10*6/uL Low 3.95-5.11 [facility] Comment on above: Performed By: #### L ACWB #### [facility] [employer] [address] [place] [address] RBC morphology finding Nom (Bld) ANISOCYTOSIS PRESENT Normal [facility] Comment on above: Performed By: #### L ACWB #### [address] [address] WBC #/vol (Bld) 8.8 10*3/uL Normal 3.5-11.3 [facility] Comment on above: Performed By: #### L ACWB #### [address] [address] Auto Diff Performed NOT REPORTED Normal [facility] Comment on above: Performed By: #### L ACWB #### [address] [address] Platelets #/vol (Bld) NOT REPORTED Normal [facility] Comment on above: Performed By: #### L ACWB #### [facility] [employer] [address] [place] [address] WBC Morphology NOT REPORTED Normal [facility] Comment on above: Performed By: #### L ACWB #### [address] [address] Fungi,Direct Examon 08-25-20 18 Fungi,Direct Exam Specimen Description .SPINE .TISSUE T4 LAMINA Special Requests NOT REPORTED Direct Exam NO FUNGAL ELEMENTS SEEN Report Status FINAL 08/25/2018 Normal [facility] Comment on above: Performed By: #### L ACWB #### [facility] [place] [address] Magnesiumon 08-25-2018 Magnesium mass conc 2.4 mg/dL Normal 1.6-2.6 [facility] Comment on above: Performed By: #### L ACWB #### [facility] [employer] [address] [place] [address] Procalcitoninon 08-25-2018 Protein mass conc 0.13 ng/mL High <0.09 [facility] Comment on above: Result Comment: Suspected Sepsis: [...] entered into the Change in Procalcitonin Calculator (www.vabthe-fnd-klvllilavt.com) to determine the patient's Mortality Risk Prognosis Performed By: #### L ACWB #### [facility] [employer] [facility] [place] [address] Cult,Aerobe/Anaerobeon 08-24 Cult,Aerobe/Anaerobe Specimen Descriptio n .SPINE Special Requests NOT REPORTED Direct Exam DUPLICATE ORDER SEE RESULTS FOR TISSUE CULTURE Culture NOT REPORTED Report Status FINAL 08/24/2018 Normal [facility] Comment on above: Performed By: #### S PAG #### [facility] [employer] [address] [place] [address] Cult,Aerobe/Anaerobe Specimen Descriptio n .SPINE Special Requests NOT REPORTED Direct Exam DUPLICATE ORDER SEE RESUULTS FOR TISSUE CULTURE Culture NOT REPORTED Report Status FINAL 08/24/2018 Normal [facility] Comment on above: Performed By: #### S PAG #### [facility] [employer] [address] [place] [address] FLUORO FOR SURGICAL PROCEDUR ESon 08-24-2018 FLUORO FOR SURGICAL PROCEDURES Radiology exam is complete. No Radiologist dictation. Please follow up with ordering provider. Final result Normal [facility] OPERATIVE REPORTon 8 OPERATIVE REPORT [facility] [address] [place] [address] OPERATIVE REPORT PATIENT NAME: CELINA GASPAR : 1980 MED REC NO: [id number] ROOM: [facility] ACCOUNT NO: [id number] ADMIT DATE: 08/15/2018 PROVIDER: Lita Mccray MD DATE OF PROCEDURE: 08/23/2018 SURGEON: Lita Mccray MD WATER RESOURCE SPECIALIST: lEiel Lraios DO PREOPERATIVE DIAGNOSIS: Epidural abscess, T3, T4, [...] satisfactory condition. LITA MCCRAY MD TA/V_SSNCK_I Doc#: [id number] CC: Lita Mccray MD Normal [facility] Procalcitoninon 08-24-2018 Protein mass conc 0.16 ng/mL High <0.09 [facility] Comment on above: Result Comment: Suspected Sepsis: [...] entered into the Change in Procalcitonin Calculator (www.lkwyqj-wob-fhwzqrvicf.[employer]) to determine the patient's Mortality Risk Prognosis Performed By: #### S PAG #### [facility] [employer] [facility] [place], [place] [id number] Basic Metab w/rfx MGon 08-23 (cont.) Normal [facility] Comment on above: Result Comment: Aver age GFR for 30-39 years old: 107 mL/min/1.73sq m Chronic Kidney Disease: <60 mL/min/1.73sq m Kidney failure: <15 mL/min/1.73sq m eGFR calculated using average adult body mass. Additional eGFR calculator available at: http://www.[employer]/multiple_crcl_2012.htm Performed By: #### S PAG #### [employer] [address] [place], [place] [id number] Anion gap molar conc 14 mmol/L Normal 9-17 [facility] Comment on above: Performed By: #### S PAG #### [employer] [address] [place], [place] [id number] Calcium mass conc 9.9 mg/dL Normal 8.6-10.4 [facility] Comment on above: Performed By: #### S PAG #### [facility] [employer] [address] [place] [address] Chloride molar conc 99 mmol/L Normal 98-107 [facility] Comment on above: Performed By: #### S PAG #### [facility] [employer] [facility] [place] [address] CO2 molar conc 26 mmol/L Normal 20-31 [facility] Comment on above: Performed By: #### S PAG #### [facility] [employer] [address] [place] [address] Creatinine mass conc 1.42 mg/dL High 0.50-0.90 [facility] Comment on above: Performed By: #### S PAG #### [facility] [employer] [address] [place] [address] GFR, Amer 50 mL/min Low >60 [facility] Comment on above: Performed By: #### S PAG #### [facility] [employer] [address] [place] [address] GFR,non Amer 41 mL/min Low >60 [facility] Comment on above: Performed By: #### S PAG #### [facility] [employer] [address] [place] [address] Glucose mass conc 95 mg/dL Normal 70-99 [facility] Comment on above: Performed By: #### S PAG #### [facility] [employer] [address] [place] [address] Potassium molar conc 4.9 mmol/L Normal 3.7-5.3 [facility] Comment on above: Result Comment: SPEC IMEN SLIGHTLY HEMOLYZED, RESULTS MAY BE ADVERSELY AFFECTED. Performed By: #### S PAG #### [facility] [employer] [address] [place] [address]29 Sodium molar conc 139 mmol/L Normal 135-144 [facility] Comment on above: Performed By: #### S PAG #### [address] [address] Urea nitrogen mass conc 31 mg/dL High 6-20 [facility] Comment on above: Performed By: #### S PAG #### [address] [address] BUN/CRE Ratio NOT REPORTED Normal 9- [facility] Comment on above: Performed By: #### S PAG #### [address] [address] Staging: NOT REPORTED Normal [facility] Comment on above: Performed By: #### S PAG #### [address] [address] CBC with Diffon 08-23-2018 Abs. Basophil 0.06 k/uL Normal 0.00-0.20 [facility] Comment on above: Performed By: #### S PAG #### [address] [address] Abs.Imm.Granulocyte 0.22 k/uL Normal 0.00-0.30 [facility] Comment on above: Performed By: #### S PAG #### [address] [address] Abs.Neutrophil (Seg) 4.43 k/uL Normal 1.50-8.10 [facility] Comment on above: Performed By: #### S PAG #### [address] [address]889 Basophils/100 WBC (Bld) 1 % Normal 0-2 [facility] Comment on above: Performed By: #### S PAG #### [address] [address] Eosinophils #/vol (Bld) 0.15 10*3/uL Normal 0.00-0.44 [facility] Comment on above: Performed By: #### S PAG #### [address] [address] Eosinophils/100 WBC (Bld) 2 % Normal 1-4 [facility] Comment on above: Performed By: #### S PAG #### [address] [address] Erythrocyte distribution width Ratio (RBC) 14.4 % Normal 11.8-14.4 [facility] Comment on above: Performed By: #### S PAG #### [address] [address] Hematocrit Volume Fraction (Bld) 33.2 % Low 36.3-47.1 [facility] Comment on above: Performed By: #### S PAG #### [address] [address] Hemoglobin mass conc (Bld) 10.4 g/dL Low 11.9-15.1 [facility] Comment on above: Performed By: #### S PAG #### [address] 17[address] Immature granulocytes #/vol (Bld) 3 % High 0 [facility] Comment on above: Performed By: #### S PAG #### [facility] [employer] [address] [place] [address] 9[address]75 Lymphocytes #/vol (Bld) 2.22 10*3/uL Normal 1.10-3.70 [facility] Comment on above: Performed By: #### S PAG #### [address] [address] Lymphocytes/100 WBC (Bld) 29 % Normal 24-43 [facility] Comment on above: Performed By: #### S PAG #### [address] [address] MCH Entitic mass (RBC) 27.7 pg Normal 25.2-33.5 [facility] Comment on above: Performed By: #### S PAG #### [address] 11718 MCHC mass conc (RBC) 31.3 g/dL Normal 28.4-34.8 [facility] Comment on above: Performed By: #### S PAG #### [address] [address]65 MCV Entitic volume (RBC) 88.3 fL Normal 82.6-102.9 [facility] Comment on above: Performed By: #### S PAG #### [address] [address] Monocytes #/vol (Bld) 0.63 10*3/uL Normal 0.10-1.20 [facility] Comment on above: Performed By: #### S PAG #### [address] 236[address] Monocytes/100 WBC (Bld) 8 % Normal 3-12 [facility] Comment on above: Performed By: #### S PAG #### [address] 36833 Neutrophil (Seg) 57 % Normal 36-65 [facility] Comment on above: Performed By: #### S PAG #### [address] [address] NRBC Automated 0.0 per 100 WBC Normal 0.0 [facility] Comment on above: Performed By: #### S PAG #### [address] [address] Platelets #/vol (Bld) See Reflexed IPF Result Normal 138-453 [facility] Comment on above: Performed By: #### S PAG #### [address] 16039 RBC #/vol (Bld) 3.76 10*6/uL Low 3.95-5.11 [facility] Comment on above: Performed By: #### S PAG #### [address] [address] WBC #/vol (Bld) 7.7 10*3/uL Normal 3.5-11.3 [facility] Comment on above: Performed By: #### S PAG #### [address] [address] Auto Diff Performed NOT REPORTED Normal [facility] Comment on above: Performed By: #### S PAG #### [address] 9[address]79 Platelet mean volume Entitic volume (Bld) NOT REPORTED Normal 8.1-13.5 [facility] Comment on above: Performed By: #### S PAG #### [address] [address] Platelets #/vol (Bld) NOT REPORTED Normal [facility] Comment on above: Performed By: #### S PAG #### [address] [address] RBC morphology finding Nom (Bld) NOT REPORTED Normal [facility] Comment on above: Performed By: #### S PAG #### [address] [address] WBC Morphology NOT REPORTED Normal [facility] Comment on above: Performed By: #### S PAG #### [address] [address] Cult,Bloodon 08-23-2018 Cult,Blood Specimen Description .BLOOD Special Requests L AC 6ML Culture NO GROWTH 6 DAYS Report Status FINAL 08/23/2018 Normal [facility] Comment on above: Performed By: #### S PAG #### [address] [address] Cult,Blood Specimen Description .BLOOD Special Requests L FOREARM 6ML Culture NO GROWTH 6 DAYS Report Status FINAL 08/23/2018 Normal [facility] Comment on above: Performed By: #### S PAG #### [address] [address] PLT, Immature Fract.on 08-23 Platelet, Fluoresc. 113 k/uL Low 138-453 [facility] Comment on above: Performed By: #### S PAG #### [address] [address] PLT, Immature Fract. 3.7 % Normal 1.1-10.3 [facility] Comment on above: Performed By: #### S PAG #### [address] [address] CBC with Diffon 08-22-2018 Abs. Basophil 0.00 k/uL Normal 0.0-0.2 [facility] Comment on above: Performed By: #### U LAG #### [address] [address] Abs.Imm.Granulocyte 0.30 k/uL Normal 0.00-0.30 [facility] Comment on above: Performed By: #### U LAG #### [address] [address] Abs.Neutrophil (Seg) 4.87 k/uL Normal 1.8-7.7 [facility] Comment on above: Performed By: #### U LAG #### [address] [address] Basophils/100 WBC (Bld) 0 % Normal 0-2 [facility] Comment on above: Performed By: #### U LAG #### [address] 044[address] Eosinophils #/vol (Bld) 0.00 10*3/uL Normal 0.0-0.4 [facility] Comment on above: Performed By: #### U LAG #### [address] [address]99[address] Eosinophils/100 WBC (Bld) 0 % Low 1-4 [facility] Comment on above: Performed By: #### U LAG #### [address] [address] Immature granulocytes #/vol (Bld) 4 % High 0 [facility] Comment on above: Performed By: #### U LAG #### [address] 699[address] Lymphocytes #/vol (Bld) 1.88 10*3/uL Normal 1.0-4.8 [facility] Comment on above: Performed By: #### U LAG #### [address] 615[address] Lymphocytes/100 WBC (Bld) 25 % Normal 24-44 [facility] Comment on above: Performed By: #### U LAG #### [address] [address] Monocytes #/vol (Bld) 0.45 10*3/uL Normal 0.1-0.8 [facility] Comment on above: Performed By: #### U LAG #### [address] [address] Monocytes/100 WBC (Bld) 6 % Normal 1-7 [facility] Comment on above: Performed By: #### U LAG #### [address] [place] [address] Morphology Interp Rehan (Bld) ANISOCYTOSIS PRESENT Normal [facility] Comment on above: Performed By: #### U LAG #### [address] [address] Neutrophil (Seg) 65 % Normal 36-66 [facility] Comment on above: Performed By: #### U LAG #### [address] [address] Erythrocyte distribution width Ratio (RBC) 14.5 % High 11.8-14.4 [facility] Comment on above: Performed By: #### U LAG #### [address] [address]47[address] Hematocrit Volume Fraction (Bld) 38.1 % Normal 36.3-47.1 [facility] Comment on above: Performed By: #### U LAG #### [address] [address] Hemoglobin mass conc (Bld) 11.5 g/dL Low 11.9-15.1 [facility] Comment on above: Performed By: #### U LAG #### [address] [address] MCH Entitic mass (RBC) 28.3 pg Normal 25.2-33.5 [facility] Comment on above: Performed By: #### U LAG #### [address] [address]44 MCHC mass conc (RBC) 30.2 g/dL Normal 28.4-34.8 [facility] Comment on above: Performed By: #### U LAG #### [address] 82219 MCV Entitic volume (RBC) 93.6 fL Normal 82.6-102.9 [facility] Comment on above: Performed By: #### U LAG #### [address] [address] NRBC Automated 0.0 per 100 WBC Normal 0.0 [facility] Comment on above: Performed By: #### U LAG #### [address] [address]48 Platelet mean volume Entitic volume (Bld) 10.7 fL Normal 8.1-13.5 [facility] Comment on above: Performed By: #### U LAG #### [address] [address] Platelets #/vol (Bld) 265 10*3/uL Normal 138-453 [facility] Comment on above: Performed By: #### U LAG #### [address] [address] RBC #/vol (Bld) 4.07 10*6/uL Normal 3.95-5.11 [facility] Comment on above: Performed By: #### U LAG #### [address] [address] WBC #/vol (Bld) 7.5 10*3/uL Normal 3.5-11.3 [facility] Comment on above: Performed By: #### U LAG #### [address] [address] Auto Diff Performed NOT REPORTED Normal [facility] Comment on above: Performed By: #### U LAG #### [address] [address] Platelets #/vol (Bld) NOT REPORTED Normal [facility] Comment on above: Performed By: #### U LAG #### [address] 9[address] RBC morphology finding Nom (Bld) NOT REPORTED Normal [facility] Comment on above: Performed By: #### U LAG #### [address] [address] WBC Morphology NOT REPORTED Normal [facility] Comment on above: Performed By: #### U LAG #### [address] [address] Comp Metabolic Pr/rfx MGon 1 10-22-2017 Albumin mass conc 3.2 g/dL Low 3.5-5.2 [facility] Comment on above: Performed By: #### U LAG #### [address] [address] Albumin/Globulin mass ratio 0.8 {ratio} Low 1.0-2.5 [facility] Comment on above: Performed By: #### U LAG #### [address] [address] Alkaline Phos 90 U/L Normal 35-104 [facility] Comment on above: Performed By: #### U LAG #### [address] [address] ALT enzyme act/vol 18 U/L Normal 5-33 [facility] Comment on above: Performed By: #### U LAG #### [facility] [employer] [address] [place] [address] 80692 AST enzyme act/vol 16 U/L Normal <32 [facility] Comment on above: Performed By: #### U LAG #### [facility] [employer] [address] [place] [address] 10322 Protein mass conc 7.0 g/dL Normal 6.4-8.3 [facility] Comment on above: Performed By: #### U LAG #### [facility] [employer] [address] [place] [address]346 (cont.) Normal [facility] Comment on above: Result Comment: Aver age GFR for 30-39 years old: 107 mL/min/1.73sq m Chronic Kidney Disease: <60 mL/min/1.73sq m Kidney failure: <15 mL/min/1.73sq m eGFR calculated using average adult body mass. Additional eGFR calculator available at: http://www.[employer]multiple_crcl_2012.htm Performed By: #### U LAG #### [employer] [address] [place] [address] 79377 Anion gap molar conc 15 mmol/L Normal 9-17 [facility] Comment on above: Performed By: #### U LAG #### [employer] [address] [place] [address] 95431 Bilirubin Ql (U) 0.34 mg/dL Normal 0.3-1.2 [facility] Comment on above: Performed By: #### U LAG #### [employer] [address] [place] [address] 94351 Calcium mass conc 9.7 mg/dL Normal 8.6-10.4 [facility] Comment on above: Performed By: #### U LAG #### [employer] [address] [place] [address] 97181 Chloride molar conc 100 mmol/L Normal 98-107 [facility] Comment on above: Performed By: #### U LAG #### [employer] [address] [place] [address] 07521 CO2 molar conc 24 mmol/L Normal 20-31 [facility] Comment on above: Performed By: #### U LAG #### [employer] [address] [place] [address] 42094 Creatinine mass conc 1.02 mg/dL High 0.50-0.90 [facility] Comment on above: Performed By: #### U LAG #### [employer] [address] [place] [address]606 GFR, Amer >60 Normal >60 [facility] Comment on above: Performed By: #### U LAG #### [facility] [employer] [address] [place] [address] 90011 GFR,non Amer >60 Normal >60 [facility] Comment on above: Performed By: #### U LAG #### [facility] [employer] [address] [place] [address] 20169 Glucose mass conc 101 mg/dL High 70-99 [facility] Comment on above: Performed By: #### U LAG #### [facility] [employer] [address] [place] [address] 58311 Potassium molar conc 4.5 mmol/L Normal 3.7-5.3 [facility] Comment on above: Performed By: #### U LAG #### [facility] [employer] [address] [place] [address] 32390 Sodium molar conc 139 mmol/L Normal 135-144 [facility] Comment on above: Performed By: #### U LAG #### [facility] [employer] [address] [place] [address] 19942 Urea nitrogen mass conc 19 mg/dL Normal 6-20 [facility] Comment on above: Performed By: #### U LAG #### [facility] [employer] [address] [place] [address] 95495 BUN/CRE Ratio NOT REPORTED Normal 9-20 [facility] Comment on above: Performed By: #### U LAG #### [facility] [employer] [address] [place] [address] 48275 Staging: NOT REPORTED Normal [facility] Comment on above: Performed By: #### U LAG #### [facility] [employer] [address] [place] [address] 35868 Magnesiumon 11-18-2018 Magnesium mass conc 2.4 mg/dL Normal 1.6-2.6 [facility] Comment on above: Performed By: #### U LAG #### [facility] [employer] [address] [place] [address] 35237 Vancomycin Troughon 08-22-20 18 Vancomycin Trough 20.2 ug/mL Critically high 10.0-20.0 [facility] Comment on above: Result Comment: High er trough serum vancomycin concentrations of 15-20 ug/mL are recommended for complicated infections such as bacteremia, endocarditis, osteomyelitis, meningitis, and hospital acquired pneumonia. ADDED ON Performed By: #### U LAG #### [facility] [employer] [address] [place] [address] 21284 Date last dose, NOT REPORTED Normal [facility] Comment on above: Performed By: #### U LAG #### [facility] [employer] [address] [place] [address] 79647 Dose amount, NOT REPORTED Normal [facility] Comment on above: Performed By: #### U LAG #### [facility] [employer] [address] [place] [address] 20205 Time last dose, NOT REPORTED Normal [facility] Comment on above: Performed By: #### U LAG #### [facility] [employer] [address] [place] [address]502 CBC with Diffon 08-21-2018 Abs. Basophil 0.08 k/uL Normal 0.00-0.20 [facility] Comment on above: Performed By: #### U LAG #### [facility] [employer] [address] [place] [address] 58556 Abs.Imm.Granulocyte 0.50 k/uL High 0.00-0.30 [facility] Comment on above: Performed By: #### U LAG #### [address] [address] Abs.Neutrophil (Seg) 4.73 k/uL Normal 1.50-8.10 [facility] Comment on above: Performed By: #### U LAG #### [address] [address] Basophils/100 WBC (Bld) 1 % Normal 0-2 [facility] Comment on above: Performed By: #### U LAG #### [address] [address]198 Eosinophils #/vol (Bld) 0.17 10*3/uL Normal 0.00-0.44 [facility] Comment on above: Performed By: #### U LAG #### [address] 025[address] Eosinophils/100 WBC (Bld) 2 % Normal 1-4 [facility] Comment on above: Performed By: #### U LAG #### [address] [address] Immature granulocytes #/vol (Bld) 6 % High 0 [facility] Comment on above: Performed By: #### U LAG #### [address] [address] Lymphocytes #/vol (Bld) 2.24 10*3/uL Normal 1.10-3.70 [facility] Comment on above: Performed By: #### U LAG #### [address] 63653 Lymphocytes/100 WBC (Bld) 27 % Normal 24-43 [facility] Comment on above: Performed By: #### U LAG #### [address] [address]98 Monocytes #/vol (Bld) 0.58 10*3/uL Normal 0.10-1.20 [facility] Comment on above: Performed By: #### U LAG #### [facility] [address] [place] [address] 57305 Monocytes/100 WBC (Bld) 7 % Normal 3-12 [facility] Comment on above: Performed By: #### U LAG #### [address] [address] Morphology Interp Rehan (Bld) ANISOCYTOSIS PRESENT Normal [facility] Comment on above: Performed By: #### U LAG #### [facility] [employer] [address] [place] [address] 20009 Neutrophil (Seg) 57 % Normal 36-65 [facility] Comment on above: Performed By: #### U LAG #### [address] [address] Erythrocyte distribution width Ratio (RBC) 14.6 % High 11.8-14.4 [facility] Comment on above: Performed By: #### U LAG #### [address] [address] Hematocrit Volume Fraction (Bld) 38.5 % Normal 36.3-47.1 [facility] Comment on above: Performed By: #### U LAG #### [address] [address]697 Hemoglobin mass conc (Bld) 11.5 g/dL Low 11.9-15.1 [facility] Comment on above: Performed By: #### U LAG #### [address] [address]15 MCH Entitic mass (RBC) 28.2 pg Normal 25.2-33.5 [facility] Comment on above: Performed By: #### U LAG #### [address] 87023 MCHC mass conc (RBC) 29.9 g/dL Normal 28.4-34.8 [facility] Comment on above: Performed By: #### U LAG #### [address] [address]014 MCV Entitic volume (RBC) 94.4 fL Normal 82.6-102.9 [facility] Comment on above: Performed By: #### U LAG #### [address] [address] NRBC Automated 0.0 per 100 WBC Normal 0.0 [facility] Comment on above: Performed By: #### U LAG #### [address] 96169 Platelet mean volume Entitic volume (Bld) 10.5 fL Normal 8.1-13.5 [facility] Comment on above: Performed By: #### U LAG #### [address] [address]279 Platelets #/vol (Bld) 264 10*3/uL Normal 138-453 [facility] Comment on above: Performed By: #### U LAG #### [address] 9[address] RBC #/vol (Bld) 4.08 10*6/uL Normal 3.95-5.11 [facility] Comment on above: Performed By: #### U LAG #### [address] 8[address] WBC #/vol (Bld) 8.3 10*3/uL Normal 3.5-11.3 [facility] Comment on above: Performed By: #### U LAG #### [address] [address] Auto Diff Performed NOT REPORTED Normal [facility] Comment on above: Performed By: #### U LAG #### [address] [address] Platelets #/vol (Bld) NOT REPORTED Normal [facility] Comment on above: Performed By: #### U LAG #### [facility] [employer] [address] [place] [address] 68844 RBC morphology finding Nom (Bld) NOT REPORTED Normal [facility] Comment on above: Performed By: #### U LAG #### [facility] [employer] [address] [place] [address] 73070 WBC Morphology NOT REPORTED Normal [facility] Comment on above: Performed By: #### U LAG #### [facility] [employer] [address] [place] [address] 38012 Comp Metabolic Pr/rfx MGon 1 10-21-2017 (cont.) Normal [facility] Comment on above: Result Comment: Aver age GFR for 30-39 years old: 107 mL/min/1.73sq m Chronic Kidney Disease: <60 mL/min/1.73sq m Kidney failure: <15 mL/min/1.73sq m eGFR calculated using average adult body mass. Additional eGFR calculator available at: http://www.[employer]/multiple_crcl_2012.htm Performed By: #### U LAG #### [facility] [employer] [address] [place] [address] 88592 Albumin mass conc 2.9 g/dL Low 3.5-5.2 [facility] Comment on above: Performed By: #### U LAG #### [facility] [employer] [address] [place] [address] 93040 Albumin/Globulin mass ratio 0.7 {ratio} Low 1.0-2.5 [facility] Comment on above: Performed By: #### U LAG #### [facility] [employer] [address] [place] [address] 66163 Alkaline Phos 98 U/L Normal 35-104 [facility] Comment on above: Performed By: #### U LAG #### [facility] [place] [address] ALT enzyme act/vol 19 U/L Normal 5-33 [facility] Comment on above: Performed By: #### U LAG #### [facility] [address] [place] [address] 35070 Anion gap molar conc 14 mmol/L Normal 9-17 [facility] Comment on above: Performed By: #### U LAG #### [facility] [address] [place] [address] 33377 AST enzyme act/vol 21 U/L Normal <32 [facility] Comment on above: Performed By: #### U LAG #### [facility] [address] [place] [address] 52523 Bilirubin Ql (U) 0.32 mg/dL Normal 0.3-1.2 [facility] Comment on above: Performed By: #### U LAG #### [facility] [employer] [address] [place] [address] 06993 Calcium mass conc 9.1 mg/dL Normal 8.6-10.4 [facility] Comment on above: Performed By: #### U LAG #### [employer] [address] [place] [address] 01588 Chloride molar conc 102 mmol/L Normal 98-107 [facility] Comment on above: Performed By: #### U LAG #### [employer] [address] [place] [address] 25852 CO2 molar conc 23 mmol/L Normal 20-31 [facility] Comment on above: Performed By: #### U LAG #### [employer] [address] [place] [address] 43281 Creatinine mass conc 0.90 mg/dL Normal 0.50-0.90 [facility] Comment on above: Performed By: #### U LAG #### [employer] [facility] [place] [address] GFR, Amer >60 Normal >60 [facility] Comment on above: Performed By: #### U LAG #### [facility] [employer] [address] [place] [address] 05227 GFR,non Amer >60 Normal >60 [facility] Comment on above: Performed By: #### U LAG #### [facility] [employer] [address] [place] [address] 17261 Glucose mass conc 108 mg/dL High 70-99 [facility] Comment on above: Performed By: #### U LAG #### [facility] [employer] [address] [place] [address] 08794 Potassium molar conc 4.6 mmol/L Normal 3.7-5.3 [facility] Comment on above: Performed By: #### U LAG #### [facility] [employer] [address] [place] [address] 19551 Protein mass conc 6.9 g/dL Normal 6.4-8.3 [facility] Comment on above: Performed By: #### U LAG #### [facility] [employer] [address] [place] [address] 88789 Sodium molar conc 139 mmol/L Normal 135-144 [facility] Comment on above: Performed By: #### U LAG #### [facility] [address] [place] [address] 31583 Urea nitrogen mass conc 17 mg/dL Normal 6-20 [facility] Comment on above: Performed By: #### U LAG #### [facility] [employer] [address] [place] [address] 39726 BUN/CRE Ratio NOT REPORTED Normal 9-20 [facility] Comment on above: Performed By: #### U LAG #### [facility] [employer] [address] [place] [address] Staging: NOT REPORTED Normal [facility] Comment on above: Performed By: #### U LAG #### [employer] [address] [place] [address] Cult,Bloodon 08-21-2018 Cult,Blood Specimen Description .BLOOD Special Requests L AC 20ML Culture POSITIVE Blood Culture CALLED TO MIS Medina [phone] [id number] DIRECT GRAM STAIN FROM BOTTLE: GRAM POSITIVE COCCI IN CLUSTERS METHICILLIN RESISTANT STAPHYLOCOCCUS AUREUS For susceptibility, refer to previous culture. Report Status FINAL 08/21/2018 Normal [facility] Comment on above: Performed By: #### U LAG #### [employer] [address] [place] [address] MRI FOOT LEFT W WO CONTRASTo n [...] By: #### U LAG #### [facility] [employer] [facility] [place] [address] Procalcitoninon 08-21-2018 Protein mass conc 0.27 ng/mL High <0.09 [facility] Comment on above: Result Comment: Suspected Sepsis: [...] entered into the Change in Procalcitonin Calculator ([email or web address]-cdc-jzlrcwaajh.com) to determine the patient's Mortality Risk Prognosis Performed By: #### U LAG #### [address] [address] C-Reactive Proteinon 018 CRP mass conc 50.4 mg/L High 0.0-5.0 [facility] Comment on above: Performed By: #### L ACDS, TROPI, PRCAL, MYCM #### [place] [address] CBC with Diffon 08-20-2018 Abs. Basophil 0.08 k/uL Normal 0.0-0.2 [facility] Comment on above: Performed By: #### L ACDS, TROPI, PRCAL, MYCM #### [address] [address] Abs.Imm.Granulocyte 0.42 k/uL High 0.00-0.30 [facility] Comment on above: Performed By: #### L ACDS, TROPI, PRCAL, MYCM #### [address] [address] Abs.Neutrophil (Seg) 4.57 k/uL Normal 1.8-7.7 [facility] Comment on above: Performed By: #### L ACDS, TROPI, PRCAL, MYCM #### [address] [address] Basophils/100 WBC (Bld) 1 % Normal 0-2 [facility] Comment on above: Performed By: #### L ACDS, TROPI, PRCAL, MYCM #### [facility] [employer] [address] [place] [address] Eosinophils #/vol (Bld) 0.25 10*3/uL Normal 0.0-0.4 [facility] Comment on above: Performed By: #### L ACDS, TROPI, PRCAL, MYCM #### [address] [address] Eosinophils/100 WBC (Bld) 3 % Normal 1-4 [facility] Comment on above: Performed By: #### L ACDS, TROPI, PRCAL, MYCM #### [address] [address] Immature granulocytes #/vol (Bld) 5 % High 0 [facility] Comment on above: Performed By: #### L ACDS, TROPI, PRCAL, MYCM #### [address] [address] Lymphocytes #/vol (Bld) 2.32 10*3/uL Normal 1.0-4.8 [facility] Comment on above: Performed By: #### L ACDS, TROPI, PRCAL, MYCM #### [address] [address] Lymphocytes/100 WBC (Bld) 28 % Normal 24-44 [facility] Comment on above: Performed By: #### L ACDS, TROPI, PRCAL, MYCM #### [address] [address] Monocytes #/vol (Bld) 0.66 10*3/uL Normal 0.1-0.8 [facility] Comment on above: Performed By: #### L ACDS, TROPI, PRCAL, MYCM #### [address] [address] Monocytes/100 WBC (Bld) 8 % High 1-7 [facility] Comment on above: Performed By: #### L ACDS, TROPI, PRCAL, MYCM #### [address] [address] Morphology Interp Rehan (Bld) ANISOCYTOSIS PRESENT Normal [facility] Comment on above: Performed By: #### L ACDS, TROPI, PRCAL, MYCM #### [address] [address] Neutrophil (Seg) 55 % Normal 36-66 [facility] Comment on above: Performed By: #### L ACDS, TROPI, PRCAL, MYCM #### [address] [address] Erythrocyte distribution width Ratio (RBC) 14.6 % High 11.8-14.4 [facility] Comment on above: Performed By: #### L ACDS, TROPI, PRCAL, MYCM #### [facility] [employer] [address] [place] [address] Hematocrit Volume Fraction (Bld) 33.5 % Low 36.3-47.1 [facility] Comment on above: Performed By: #### L ACDS, TROPI, PRCAL, MYCM #### [address] [address] Hemoglobin mass conc (Bld) 10.2 g/dL Low 11.9-15.1 [facility] Comment on above: Performed By: #### L ACDS, TROPI, PRCAL, MYCM #### [address] [address] MCH Entitic mass (RBC) 27.9 pg Normal 25.2-33.5 [facility] Comment on above: Performed By: #### L ACDS, TROPI, PRCAL, MYCM #### [address] [address] MCHC mass conc (RBC) 30.4 g/dL Normal 28.4-34.8 [facility] Comment on above: Performed By: #### L ACDS, TROPI, PRCAL, MYCM #### [facility] [employer] [address] [place] [address] MCV Entitic volume (RBC) 91.5 fL Normal 82.6-102.9 [facility] Comment on above: Performed By: #### L ACDS, TROPI, PRCAL, MYCM #### [facility] [employer] [address] [place] [address] NRBC Automated 0.0 per 100 WBC Normal 0.0 [facility] Comment on above: Performed By: #### L ACDS, TROPI, PRCAL, MYCM #### [facility] [employer] [address] [place] [address] Platelet mean volume Entitic volume (Bld) 11.0 fL Normal 8.1-13.5 [facility] Comment on above: Performed By: #### L ACDS, TROPI, PRCAL, MYCM #### [address] [address] Platelets #/vol (Bld) 211 10*3/uL Normal 138-453 [facility] Comment on above: Performed By: #### L ACDS, TROPI, PRCAL, MYCM #### [address] [address] RBC #/vol (Bld) 3.66 10*6/uL Low 3.95-5.11 [facility] Comment on above: Performed By: #### L ACDS, TROPI, PRCAL, MYCM #### [facility] [employer] [address] [place] [address] WBC #/vol (Bld) 8.3 10*3/uL Normal 3.5-11.3 [facility] Comment on above: Performed By: #### L ACDS, TROPI, PRCAL, MYCM #### [facility] [employer] [address] [place] [address] Auto Diff Performed NOT REPORTED Normal [facility] Comment on above: Performed By: #### L ACDS, TROPI, PRCAL, MYCM #### [facility] [employer] [address] [place] [address] Platelets #/vol (Bld) NOT REPORTED Normal [facility] Comment on above: Performed By: #### L ACDS, TROPI, PRCAL, MYCM #### [facility] [employer] [address] [place] [address] RBC morphology finding Nom (Bld) NOT REPORTED Normal [facility] Comment on above: Performed By: #### L ACDS, TROPI, PRCAL, MYCM #### [facility] [employer] [address] [place] [address] WBC Morphology NOT REPORTED Normal [facility] Comment on above: Performed By: #### L ACDS, TROPI, PRCAL, MYCM #### [address] [address] Comp Metabolic Pr/rfx MGon 1 10-20-2017 (cont.) Normal [facility] Comment on above: Result Comment: Aver age GFR for 30-39 years old: 107 mL/min/1.73sq m Chronic Kidney Disease: <60 mL/min/1.73sq m Kidney failure: <15 mL/min/1.73sq m eGFR calculated using average adult body mass. Additional eGFR calculator available at: http://www.Sogou.com/multiple_crcl_2012.htm Performed By: #### L ACDS, TROPI, PRCAL, MYCM #### [facility] [employer] [address] [place] [address] Albumin mass conc 3.1 g/dL Low 3.5-5.2 [facility] Comment on above: Performed By: #### L ACDS, TROPI, PRCAL, MYCM #### [facility] [employer] [address] [place] [address] Albumin/Globulin mass ratio 0.9 {ratio} Low 1.0-2.5 [facility] Comment on above: Performed By: #### L ACDS, TROPI, PRCAL, MYCM #### [facility] [employer] [address] [place] [address] Alkaline Phos 83 U/L Normal 35-104 [facility] Comment on above: Performed By: #### L ACDS, TROPI, PRCAL, MYCM #### [facility] [employer] [address] [place] [address] ALT enzyme act/vol 17 U/L Normal 5-33 [facility] Comment on above: Performed By: #### L ACDS, TROPI, PRCAL, MYCM #### [facility] [employer] [address] [place] [address] Anion gap molar conc 11 mmol/L Normal 9-17 [facility] Comment on above: Performed By: #### L ACDS, TROPI, PRCAL, MYCM #### [facility] [employer] [address] [place] [address] 31445 AST enzyme act/vol 18 U/L Normal <32 [facility] Comment on above: Performed By: #### L ACDS, TROPI, PRCAL, MYCM #### [facility] [employer] [address] [place] [address] Bilirubin Ql (U) 0.29 mg/dL Low 0.3-1.2 [facility] Comment on above: Performed By: #### L ACDS, TROPI, PRCAL, MYCM #### [facility] [employer] [address] [place] [address] Calcium mass conc 9.0 mg/dL Normal 8.6-10.4 [facility] Comment on above: Performed By: #### L ACDS, TROPI, PRCAL, MYCM #### [facility] [employer] [address] [place] [address] Chloride molar conc 101 mmol/L Normal 98-107 [facility] Comment on above: Performed By: #### L ACDS, TROPI, PRCAL, MYCM #### [facility] [employer] [address] [place] [address]75 CO2 molar conc 27 mmol/L Normal 20-31 [facility] Comment on above: Performed By: #### L ACDS, TROPI, PRCAL, MYCM #### [facility] [employer] [address] [place] [address] Creatinine mass conc 0.97 mg/dL High 0.50-0.90 [facility] Comment on above: Performed By: #### L ACDS, TROPI, PRCAL, MYCM #### [facility] [employer] [address] [place] [address] GFR, Amer >60 Normal >60 [facility] Comment on above: Performed By: #### L ACDS, TROPI, PRCAL, MYCM #### [facility] [employer] [address] [place] [address] GFR,non Amer >60 Normal >60 [facility] Comment on above: Performed By: #### L ACDS, TROPI, PRCAL, MYCM #### [facility] [employer] [address] [place] [address] 14616 Glucose mass conc 105 mg/dL High 70-99 [facility] Comment on above: Performed By: #### L ACDS, TROPI, PRCAL, MYCM #### [facility] [employer] [address] [place] [address] Potassium molar conc 4.4 mmol/L Normal 3.7-5.3 [facility] Comment on above: Performed By: #### L ACDS, TROPI, PRCAL, MYCM #### [facility] [employer] [address] [place] [address] Protein mass conc 6.6 g/dL Normal 6.4-8.3 [facility] Comment on above: Performed By: #### L ACDS, TROPI, PRCAL, MYCM #### [facility] [address] [place] [address] Sodium molar conc 139 mmol/L Normal 135-144 [facility] Comment on above: Performed By: #### L ACDS, TROPI, PRCAL, MYCM #### [employer] [address] [place] [address] 85758 Urea nitrogen mass conc 15 mg/dL Normal -20 [facility] Comment on above: Performed By: #### L ACDS, TROPI, PRCAL, MYCM #### [facility] [address] [place] [address] BUN/CRE Ratio NOT REPORTED Normal 06-24 [facility] Comment on above: Performed By: #### L ACDS, TROPI, PRCAL, MYCM #### [employer] [address] [place] [address] Staging: NOT REPORTED Normal [facility] Comment on above: Performed By: #### L ACDS, TROPI, PRCAL, MYCM #### [employer] [address] [place] [address] Magnesiumon 08-20-2018 Magnesium mass conc 2.2 mg/dL Normal 1.6-2.6 [facility] Comment on above: Performed By: #### L ACDS, TROPI, PRCAL, MYCM #### [employer] [address] [place] [address] Sedimentation Rateon 018 Sedimentation Rate 100 mm High 0-20 [facility] Comment on above: Performed By: #### L ACDS, TROPI, PRCAL, MYCM #### [facility] [address] [place] [address] XR FOOT LEFT (MIN 3 VIEWS)on 08-20-2018 [...] #### L ACDS, TROPI, PRCAL, MYCM #### [place] [address] Abs.Imm.Granulocyte 0.42 k/uL High 0.00-0.30 [facility] Comment on above: Performed By: #### L ACDS, TROPI, PRCAL, MYCM #### [place] [address] Abs.Neutrophil (Seg) 2.70 k/uL Normal 1.8-7.7 [facility] Comment on above: Performed By: #### L ACDS, TROPI, PRCAL, MYCM #### [facility] [employer] [address] [place] [address] Basophils/100 WBC (Bld) 0 % Normal 0-2 [facility] Comment on above: Performed By: #### L ACDS, TROPI, PRCAL, MYCM #### [facility] [employer] [address] [place] [address] Eosinophils #/vol (Bld) 0.30 10*3/uL Normal 0.0-0.4 [facility] Comment on above: Performed By: #### L ACDS, TROPI, PRCAL, MYCM #### [address] [address] Eosinophils/100 WBC (Bld) 5 % High 1-4 [facility] Comment on above: Performed By: #### L ACDS, TROPI, PRCAL, MYCM #### [address] [address] Immature granulocytes #/vol (Bld) 7 % High 0 [facility] Comment on above: Performed By: #### L ACDS, TROPI, PRCAL, MYCM #### [address] [address] Lymphocytes #/vol (Bld) 2.22 10*3/uL Normal 1.0-4.8 [facility] Comment on above: Performed By: #### L ACDS, TROPI, PRCAL, MYCM #### [address] [address] Lymphocytes/100 WBC (Bld) 37 % Normal 24-44 [facility] Comment on above: Performed By: #### L ACDS, TROPI, PRCAL, MYCM #### [address] [address] Monocytes #/vol (Bld) 0.36 10*3/uL Normal 0.1-0.8 [facility] Comment on above: Performed By: #### L ACDS, TROPI, PRCAL, MYCM #### [address] [address] Monocytes/100 WBC (Bld) 6 % Normal 1-7 [facility] Comment on above: Performed By: #### L ACDS, TROPI, PRCAL, MYCM #### [address] [address] Morphology Interp Rehan (Bld) ANISOCYTOSIS PRESENT Normal [facility] Comment on above: Performed By: #### L ACDS, TROPI, PRCAL, MYCM #### [address] [address] Neutrophil (Seg) 45 % Normal 36-66 [facility] Comment on above: Performed By: #### L ACDS, TROPI, PRCAL, MYCM #### [address] [address] Erythrocyte distribution width Ratio (RBC) 14.6 % High 11.8-14.4 [facility] Comment on above: Performed By: #### L ACDS, TROPI, PRCAL, MYCM #### [address] [address] Hematocrit Volume Fraction (Bld) 34.4 % Low 36.3-47.1 [facility] Comment on above: Performed By: #### L ACDS, TROPI, PRCAL, MYCM #### [address] [address] Hemoglobin mass conc (Bld) 10.4 g/dL Low 11.9-15.1 [facility] Comment on above: Performed By: #### L ACDS, TROPI, PRCAL, MYCM #### [address] [address] MCH Entitic mass (RBC) 28.0 pg Normal 25.2-33.5 [facility] Comment on above: Performed By: #### L ACDS, TROPI, PRCAL, MYCM #### [address] [address] MCHC mass conc (RBC) 30.2 g/dL Normal 28.4-34.8 [facility] Comment on above: Performed By: #### L ACDS, TROPI, PRCAL, MYCM #### [address] [address] MCV Entitic volume (RBC) 92.7 fL Normal 82.6-102.9 [facility] Comment on above: Performed By: #### L ACDS, TROPI, PRCAL, MYCM #### [address] [address] NRBC Automated 0.3 per 100 WBC High 0.0 [facility] Comment on above: Performed By: #### L ACDS, TROPI, PRCAL, MYCM #### [address] [address] Platelet mean volume Entitic volume (Bld) 10.5 fL Normal 8.1-13.5 [facility] Comment on above: Performed By: #### L ACDS, TROPI, PRCAL, MYCM #### [address] [address] Platelets #/vol (Bld) 168 10*3/uL Normal 138-453 [facility] Comment on above: Performed By: #### L ACDS, TROPI, PRCAL, MYCM #### [address] [address] RBC #/vol (Bld) 3.71 10*6/uL Low 3.95-5.11 [facility] Comment on above: Performed By: #### L ACDS, TROPI, PRCAL, MYCM #### [address] [address] WBC #/vol (Bld) 6.0 10*3/uL Normal 3.5-11.3 [facility] Comment on above: Performed By: #### L ACDS, TROPI, PRCAL, MYCM #### [address] [address] Auto Diff Performed NOT REPORTED Normal [facility] Comment on above: Performed By: #### L ACDS, TROPI, PRCAL, MYCM #### [facility] [employer] [address] [place] [address] Platelets #/vol (Bld) NOT REPORTED Normal [facility] Comment on above: Performed By: #### L ACDS, TROPI, PRCAL, MYCM #### [facility] [employer] [address] [place] [address] 39964 RBC morphology finding Nom (Bld) NOT REPORTED Normal [facility] Comment on above: Performed By: #### L ACDS, TROPI, PRCAL, MYCM #### [facility] [employer] [address] [place] [address] WBC Morphology NOT REPORTED Normal [facility] Comment on above: Performed By: #### L ACDS, TROPI, PRCAL, MYCM #### [address] [address] Comp Metabolic Pr/rfx MGon 1 10-19-2017 (cont.) Normal [facility] Comment on above: Result Comment: Aver age GFR for 30-39 years old: 107 mL/min/1.73sq m Chronic Kidney Disease: <60 mL/min/1.73sq m Kidney failure: <15 mL/min/1.73sq m eGFR calculated using average adult body mass. Additional eGFR calculator available at: http://www.Sogou.com/multiple_crcl_2012.htm Performed By: #### L ACDS, TROPI, PRCAL, MYCM #### [facility] [employer] [address] [place] [address]279 Albumin mass conc 2.7 g/dL Low 3.5-5.2 [facility] Comment on above: Performed By: #### L ACDS, TROPI, PRCAL, MYCM #### [facility] [employer] [address] [place] [address] Albumin/Globulin mass ratio 0.8 {ratio} Low 1.0-2.5 [facility] Comment on above: Performed By: #### L ACDS, TROPI, PRCAL, MYCM #### [facility] [employer] [address] [place] [address]256 Alkaline Phos 78 U/L Normal 35-104 [facility] Comment on above: Performed By: #### L ACDS, TROPI, PRCAL, MYCM #### [facility] [employer] [address] [place] [address]13 ALT enzyme act/vol 16 U/L Normal 5-33 [facility] Comment on above: Performed By: #### L ACDS, TROPI, PRCAL, MYCM #### [facility] [employer] [address] [place] [address] 53949 Anion gap molar conc 10 mmol/L Normal 9-17 [facility] Comment on above: Performed By: #### L ACDS, TROPI, PRCAL, MYCM #### [facility] [employer] [address] [place] [address] 61510 AST enzyme act/vol 16 U/L Normal <32 [facility] Comment on above: Performed By: #### L ACDS, TROPI, PRCAL, MYCM #### [facility] [employer] [address] [place] [address] 39737 Bilirubin Ql (U) 0.21 mg/dL Low 0.3-1.2 [facility] Comment on above: Performed By: #### L ACDS, TROPI, PRCAL, MYCM #### [facility] [employer] [address] [place] [address] 14289 Calcium mass conc 8.5 mg/dL Low 8.6-10.4 [facility] Comment on above: Performed By: #### L ACDS, TROPI, PRCAL, MYCM #### [facility] [employer] [address] [place] [address] 89710 Chloride molar conc 103 mmol/L Normal 98-107 [facility] Comment on above: Performed By: #### L ACDS, TROPI, PRCAL, MYCM #### [address] [address] CO2 molar conc 24 mmol/L Normal 20-31 [facility] Comment on above: Performed By: #### L ACDS, TROPI, PRCAL, MYCM #### [facility] [employer] [address] [place] [address] 59388 Creatinine mass conc 0.88 mg/dL Normal 0.50-0.90 [facility] Comment on above: Performed By: #### L ACDS, TROPI, PRCAL, MYCM #### [facility] [employer] [address] [place] [address] 00390 GFR, Amer >60 Normal >60 [facility] Comment on above: Performed By: #### L ACDS, TROPI, PRCAL, MYCM #### [facility] [employer] [address] [place] [address] 76528 GFR,non Amer >60 Normal >60 [facility] Comment on above: Performed By: #### L ACDS, TROPI, PRCAL, MYCM #### [facility] [employer] [address] [place] [address] 65272 Glucose mass conc 104 mg/dL High 70-99 [facility] Comment on above: Performed By: #### L ACDS, TROPI, PRCAL, MYCM #### [facility] [employer] [address] [place] [address] 28880 Potassium molar conc 4.0 mmol/L Normal 3.7-5.3 [facility] Comment on above: Performed By: #### L ACDS, TROPI, PRCAL, MYCM #### [facility] [employer] [address] [place] [address] 56428 Protein mass conc 6.3 g/dL Low 6.4-8.3 [facility] Comment on above: Performed By: #### L ACDS, TROPI, PRCAL, MYCM #### [employer] [facility] [place] [address] Sodium molar conc 137 mmol/L Normal 135-144 [facility] Comment on above: Performed By: #### L ACDS, TROPI, PRCAL, MYCM #### [employer] [address] [place] [address] 79617 Urea nitrogen mass conc 16 mg/dL Normal -20 [facility] Comment on above: Performed By: #### L ACDS, TROPI, PRCAL, MYCM #### [facility] [employer] [address] [place] [address] 49056 BUN/CRE Ratio NOT REPORTED Normal - [facility] Comment on above: Performed By: #### L ACDS, TROPI, PRCAL, MYCM #### [facility] [address] [place] [address] 39242 Staging: NOT REPORTED Normal [facility] Comment on above: Performed By: #### L ACDS, TROPI, PRCAL, MYCM #### [facility] [employer] [address] [place] [address] 77698 Cult, Bloodon 08-19-2018 Cult, Blood Specimen Description [...] #### L ACDS, TROPI, PRCAL, MYCM #### [facility] [address] [place] [address] MRI CERVICAL SPINE W WO CONT JAVONTon 08-19-2018 MRI CERVICAL SPINE W WO CONTRAST [...] #### L ACDS, TROPI, PRCAL, MYCM #### [employer] [facility] [place] [address] Procalcitoninon 08-19-2018 Protein mass conc 0.57 ng/mL High <0.09 [facility] Comment on above: Result Comment: Suspected Sepsis: [...] entered into the Change in Procalcitonin Calculator (www.ibkjhc-sgx-cygwimjuaz.com) to determine the patient's Mortality Risk Prognosis Performed By: #### L ACDS, TROPI, PRCAL, MYCM #### [employer] [address] [place] [address] CBC with Diffon 08-18-2018 Abs. Basophil <0.03 Normal 0.00-0.20 [facility] Comment on above: Performed By: #### L ACDS, TROPI, PRCAL, MYCM #### [employer] [address] [place], [place] [id number] Abs.Imm.Granulocyte 0.28 k/uL Normal 0.00-0.30 [facility] Comment on above: Performed By: #### L ACDS, TROPI, PRCAL, MYCM #### [address] [address] Abs.Neutrophil (Seg) 3.23 k/uL Normal 1.50-8.10 [facility] Comment on above: Performed By: #### L ACDS, TROPI, PRCAL, MYCM #### [facility] [employer] [address] [place] [address] Basophils/100 WBC (Bld) 0 % Normal 0-2 [facility] Comment on above: Performed By: #### L ACDS, TROPI, PRCAL, MYCM #### [facility] [employer] [address] [place] [address] Eosinophils #/vol (Bld) 0.15 10*3/uL Normal 0.00-0.44 [facility] Comment on above: Performed By: #### L ACDS, TROPI, PRCAL, MYCM #### [facility] [facility] [address] [place] [address] 56599 Eosinophils/100 WBC (Bld) 3 % Normal 1-4 [facility] Comment on above: Performed By: #### L ACDS, TROPI, PRCAL, MYCM #### [facility] [employer] [address] [place] [address] 28105 Erythrocyte distribution width Ratio (RBC) 14.7 % High 11.8-14.4 [facility] Comment on above: Performed By: #### L ACDS, TROPI, PRCAL, MYCM #### [facility] [employer] [address] [place] [address] 57381 Hematocrit Volume Fraction (Bld) 32.7 % Low 36.3-47.1 [facility] Comment on above: Performed By: #### L ACDS, TROPI, PRCAL, MYCM #### [address] [address] Hemoglobin mass conc (Bld) 10.1 g/dL Low 11.9-15.1 [facility] Comment on above: Performed By: #### L ACDS, TROPI, PRCAL, MYCM #### [address] [address] Immature granulocytes #/vol (Bld) 5 % High 0 [facility] Comment on above: Performed By: #### L ACDS, TROPI, PRCAL, MYCM #### [address] [address] Lymphocytes #/vol (Bld) 1.58 10*3/uL Normal 1.10-3.70 [facility] Comment on above: Performed By: #### L ACDS, TROPI, PRCAL, MYCM #### [address] [address] Lymphocytes/100 WBC (Bld) 28 % Normal 24-43 [facility] Comment on above: Performed By: #### L ACDS, TROPI, PRCAL, MYCM #### [address] [address] MCH Entitic mass (RBC) 28.2 pg Normal 25.2-33.5 [facility] Comment on above: Performed By: #### L ACDS, TROPI, PRCAL, MYCM #### [address] [address] MCHC mass conc (RBC) 30.9 g/dL Normal 28.4-34.8 [facility] Comment on above: Performed By: #### L ACDS, TROPI, PRCAL, MYCM #### [address] [address] MCV Entitic volume (RBC) 91.3 fL Normal 82.6-102.9 [facility] Comment on above: Performed By: #### L ACDS, TROPI, PRCAL, MYCM #### [address] [address] Monocytes #/vol (Bld) 0.47 10*3/uL Normal 0.10-1.20 [facility] Comment on above: Performed By: #### L ACDS, TROPI, PRCAL, MYCM #### [address] [address] Monocytes/100 WBC (Bld) 8 % Normal 3-12 [facility] Comment on above: Performed By: #### L ACDS, TROPI, PRCAL, MYCM #### [address] [address] Neutrophil (Seg) 56 % Normal 36-65 [facility] Comment on above: Performed By: #### L ACDS, TROPI, PRCAL, MYCM #### [address] [address] NRBC Automated 0.0 per 100 WBC Normal 0.0 [facility] Comment on above: Performed By: #### L ACDS, TROPI, PRCAL, MYCM #### [address] [address] Platelet mean volume Entitic volume (Bld) 11.4 fL Normal 8.1-13.5 [facility] Comment on above: Performed By: #### L ACDS, TROPI, PRCAL, MYCM #### [address] [address] Platelets #/vol (Bld) 153 10*3/uL Normal 138-453 [facility] Comment on above: Performed By: #### L ACDS, TROPI, PRCAL, MYCM #### [address] [place] [address] RBC #/vol (Bld) 3.58 10*6/uL Low 3.95-5.11 [facility] Comment on above: Performed By: #### L ACDS, TROPI, PRCAL, MYCM #### [facility] [employer] [address] [place] [address] 79858 RBC morphology finding Nom (Bld) ANISOCYTOSIS PRESENT Normal [facility] Comment on above: Performed By: #### L ACDS, TROPI, PRCAL, MYCM #### [facility] [employer] [address] [place] [address] 85570 WBC #/vol (Bld) 5.7 10*3/uL Normal 3.5-11.3 [facility] Comment on above: Performed By: #### L ACDS, TROPI, PRCAL, MYCM #### [facility] [employer] [address] [place] [address] 34136 Auto Diff Performed NOT REPORTED Normal [facility] Comment on above: Performed By: #### L ACDS, TROPI, PRCAL, MYCM #### [address] [address] Platelets #/vol (Bld) NOT REPORTED Normal [facility] Comment on above: Performed By: #### L ACDS, TROPI, PRCAL, MYCM #### [facility] [employer] [address] [place] [address] 52677 WBC Morphology NOT REPORTED Normal [facility] Comment on above: Performed By: #### L ACDS, TROPI, PRCAL, MYCM #### [facility] [employer] [address] [place] [address] 42960 Comp Metabolic Pr/rfx MGon 1 10-18-2017 (cont.) Normal [facility] Comment on above: Result Comment: Aver age GFR for 30-39 years old: 107 mL/min/1.73sq m Chronic Kidney Disease: <60 mL/min/1.73sq m Kidney failure: <15 mL/min/1.73sq m eGFR calculated using average adult body mass. Additional eGFR calculator available at: http://www.[employer]/multiple_crcl_2012.htm Performed By: #### L ACDS, TROPI, PRCAL, MYCM #### [facility] [address] [place] [address] 25184 Albumin mass conc 2.7 g/dL Low 3.5-5.2 [facility] Comment on above: Performed By: #### L ACDS, TROPI, PRCAL, MYCM #### [facility] [employer] [address] [place] [address] 33654 Albumin/Globulin mass ratio 0.8 {ratio} Low 1.0-2.5 [facility] Comment on above: Performed By: #### L ACDS, TROPI, PRCAL, MYCM #### [facility] [employer] [address] [place] [address] 32433 Alkaline Phos 82 U/L Normal 35-104 [facility] Comment on above: Performed By: #### L ACDS, TROPI, PRCAL, MYCM #### [facility] [employer] [address] [place] [address] 29033 ALT enzyme act/vol 19 U/L Normal 5-33 [facility] Comment on above: Performed By: #### L ACDS, TROPI, PRCAL, MYCM #### [facility] [employer] [address] [place] [address] 41869 Anion gap molar conc 8 mmol/L Low 9-17 [facility] Comment on above: Performed By: #### L ACDS, TROPI, PRCAL, MYCM #### [facility] [employer] [address] [place] [address] 92164 AST enzyme act/vol 17 U/L Normal <32 [facility] Comment on above: Performed By: #### L ACDS, TROPI, PRCAL, MYCM #### [facility] [employer] [address] [place] [address] 90245 Bilirubin Ql (U) 0.24 mg/dL Low 0.3-1.2 [facility] Comment on above: Performed By: #### L ACDS, TROPI, PRCAL, MYCM #### [facility] [employer] [address] [place] [address] 50479 Calcium mass conc 8.2 mg/dL Low 8.6-10.4 [facility] Comment on above: Performed By: #### L ACDS, TROPI, PRCAL, MYCM #### [facility] [employer] [address] [place] [address] 05623 Chloride molar conc 103 mmol/L Normal 98-107 [facility] Comment on above: Performed By: #### L ACDS, TROPI, PRCAL, MYCM #### [facility] [employer] [address] [place] [address] 45027 CO2 molar conc 25 mmol/L Normal 20-31 [facility] Comment on above: Performed By: #### L ACDS, TROPI, PRCAL, MYCM #### [facility] [employer] [address] [place] [address] 52488 Creatinine mass conc 0.94 mg/dL High 0.50-0.90 [facility] Comment on above: Performed By: #### L ACDS, TROPI, PRCAL, MYCM #### [facility] [employer] [address] [place] [address] 99454 GFR, Amer >60 Normal >60 [facility] Comment on above: Performed By: #### L ACDS, TROPI, PRCAL, MYCM #### [facility] [employer] [address] [place] [address] 60399 GFR,non Amer >60 Normal >60 [facility] Comment on above: Performed By: #### L ACDS, TROPI, PRCAL, MYCM #### [facility] [employer] [address] [place] [address] 95508 Glucose mass conc 107 mg/dL High 70-99 [facility] Comment on above: Performed By: #### L ACDS, TROPI, PRCAL, MYCM #### [facility] [employer] [address] [place] [address] 60179 Potassium molar conc 4.1 mmol/L Normal 3.7-5.3 [facility] Comment on above: Performed By: #### L ACDS, TROPI, PRCAL, MYCM #### [facility] [employer] [address] [place] [address] 85732 Protein mass conc 6.2 g/dL Low 6.4-8.3 [facility] Comment on above: Performed By: #### L ACDS, TROPI, PRCAL, MYCM #### [facility] [employer] [address] [place] [address] 47279 Sodium molar conc 136 mmol/L Normal 135-144 [facility] Comment on above: Performed By: #### L ACDS, TROPI, PRCAL, MYCM #### [facility] [employer] [address] [place] [address] 28810 Urea nitrogen mass conc 14 mg/dL Normal 6-20 [facility] Comment on above: Performed By: #### L ACDS, TROPI, PRCAL, MYCM #### [facility] [address] [place] [address] 69614 BUN/CRE Ratio NOT REPORTED Normal 9-20 [facility] Comment on above: Performed By: #### L ACDS, TROPI, PRCAL, MYCM #### [employer] [address] [place] [address] 65694 Staging: NOT REPORTED Normal [facility] Comment on above: Performed By: #### L ACDS, TROPI, PRCAL, MYCM #### [employer] [address] [place] [address] 37699 Magnesiumon 08-18-2018 Magnesium mass conc 2.3 mg/dL Normal 1.6-2.6 [facility] Comment on above: Performed By: #### L ACDS, TROPI, PRCAL, MYCM #### [employer] [address] [place] [address] 71026 Vancomycin Troughon 08-18-20 18 Vancomycin Trough 14.7 ug/mL Normal 10.0-20.0 [facility] Comment on above: Result Comment: High er trough serum vancomycin concentrations of 15-20 ug/mL are recommended for complicated infections such as bacteremia, endocarditis, osteomyelitis, meningitis, and hospital acquired pneumonia. Performed By: #### L ACDS, TROPI, PRCAL, MYCM #### [employer] [address] [place] [address] 60542 Date last dose, NOT REPORTED Normal [facility] Comment on above: Performed By: #### L ACDS, TROPI, PRCAL, MYCM #### [employer] [address] [place] [address] 26473 Dose amount, NOT REPORTED Normal [facility] Comment on above: Performed By: #### L ACDS, TROPI, PRCAL, MYCM #### [employer] [address] [place] [address] 46293 Time last dose, NOT REPORTED Normal [facility] Comment on above: Performed By: #### L ACDS, TROPI, PRCAL, MYCM #### [employer] [address] [place] [address] 77106 C-Reactive Proteinon 018 CRP mass conc 188.1 mg/L High 0.0-5.0 [facility] Comment on above: Performed By: #### L ACDS, TROPI, PRCAL, MYCM #### [address] [address] CBC with Diffon 08-17-2018 Abs. Basophil 0.00 k/uL Normal 0.0-0.2 [facility] Comment on above: Performed By: #### L ACDS, TROPI, PRCAL, MYCM #### [address] [address] Abs.Imm.Granulocyte 0.13 k/uL Normal 0.00-0.30 [facility] Comment on above: Performed By: #### L ACDS, TROPI, PRCAL, MYCM #### [address] [address] Abs.Neutrophil (Seg) 4.35 k/uL Normal 1.8-7.7 [facility] Comment on above: Performed By: #### L ACDS, TROPI, PRCAL, MYCM #### [address] [address]888 Basophils/100 WBC (Bld) 0 % Normal 0-2 [facility] Comment on above: Performed By: #### L ACDS, TROPI, PRCAL, MYCM #### [address] [address] Eosinophils #/vol (Bld) 0.06 10*3/uL Normal 0.0-0.4 [facility] Comment on above: Performed By: #### L ACDS, TROPI, PRCAL, MYCM #### [address] [address]015 Eosinophils/100 WBC (Bld) 1 % Normal 1-4 [facility] Comment on above: Performed By: #### L ACDS, TROPI, PRCAL, MYCM #### [address] [address] Immature granulocytes #/vol (Bld) 2 % High 0 [facility] Comment on above: Performed By: #### L ACDS, TROPI, PRCAL, MYCM #### [address] [address] Lymphocytes #/vol (Bld) 1.32 10*3/uL Normal 1.0-4.8 [facility] Comment on above: Performed By: #### L ACDS, TROPI, PRCAL, MYCM #### [facility] [employer] [address] [place] [address] 74162 Lymphocytes/100 WBC (Bld) 21 % Low 24-44 [facility] Comment on above: Performed By: #### L ACDS, TROPI, PRCAL, MYCM #### [address] [address] Monocytes #/vol (Bld) 0.44 10*3/uL Normal 0.1-0.8 [facility] Comment on above: Performed By: #### L ACDS, TROPI, PRCAL, MYCM #### [address] [address]661 Monocytes/100 WBC (Bld) 7 % Normal 1-7 [facility] Comment on above: Performed By: #### L ACDS, TROPI, PRCAL, MYCM #### [address] [address] Morphology Interp Rehan (Bld) ANISOCYTOSIS PRESENT Normal [facility] Comment on above: Result Comment: INCR EASED BANDS PRESENT 1+ TEARDROPS Performed By: #### L ACDS, TROPI, PRCAL, MYCM #### [facility] [employer] [address] [place] [address] 99577 Neutrophil (Seg) 69 % High 36-66 [facility] Comment on above: Performed By: #### L ACDS, TROPI, PRCAL, MYCM #### [facility] [address] [place] [address] 96514 Erythrocyte distribution width Ratio (RBC) 14.8 % High 11.8-14.4 [facility] Comment on above: Performed By: #### L ACDS, TROPI, PRCAL, MYCM #### [address] [address] Hematocrit Volume Fraction (Bld) 33.3 % Low 36.3-47.1 [facility] Comment on above: Performed By: #### L ACDS, TROPI, PRCAL, MYCM #### [facility] [employer] [address] [place] [address] 88882 Hemoglobin mass conc (Bld) 10.2 g/dL Low 11.9-15.1 [facility] Comment on above: Performed By: #### L ACDS, TROPI, PRCAL, MYCM #### [address] [address]971 MCH Entitic mass (RBC) 28.3 pg Normal 25.2-33.5 [facility] Comment on above: Performed By: #### L ACDS, TROPI, PRCAL, MYCM #### [facility] [employer] [address] [place] [address] 34866 MCHC mass conc (RBC) 30.6 g/dL Normal 28.4-34.8 [facility] Comment on above: Performed By: #### L ACDS, TROPI, PRCAL, MYCM #### [facility] [employer] [address] [place] [address] 89271 MCV Entitic volume (RBC) 92.2 fL Normal 82.6-102.9 [facility] Comment on above: Performed By: #### L ACDS, TROPI, PRCAL, MYCM #### [facility] [employer] [address] [place] [address] 55148 NRBC Automated 0.0 per 100 WBC Normal 0.0 [facility] Comment on above: Performed By: #### L ACDS, TROPI, PRCAL, MYCM #### [address] [address] Platelet mean volume Entitic volume (Bld) 11.5 fL Normal 8.1-13.5 [facility] Comment on above: Performed By: #### L ACDS, TROPI, PRCAL, MYCM #### [address] [address] Platelets #/vol (Bld) 149 10*3/uL Normal 138-453 [facility] Comment on above: Performed By: #### L ACDS, TROPI, PRCAL, MYCM #### [address] [address] RBC #/vol (Bld) 3.61 10*6/uL Low 3.95-5.11 [facility] Comment on above: Performed By: #### L ACDS, TROPI, PRCAL, MYCM #### [address] [address] WBC #/vol (Bld) 6.3 10*3/uL Normal 3.5-11.3 [facility] Comment on above: Performed By: #### L ACDS, TROPI, PRCAL, MYCM #### [address] 18643 Auto Diff Performed NOT REPORTED Normal [facility] Comment on above: Performed By: #### L ACDS, TROPI, PRCAL, MYCM #### [address] [address]64 Platelets #/vol (Bld) NOT REPORTED Normal [facility] Comment on above: Performed By: #### L ACDS, TROPI, PRCAL, MYCM #### [address] [place] [address] RBC morphology finding Nom (Bld) NOT REPORTED Normal [facility] Comment on above: Performed By: #### L ACDS, TROPI, PRCAL, MYCM #### [facility] [place] [address] WBC Morphology NOT REPORTED Normal [facility] Comment on above: Performed By: #### L ACDS, TROPI, PRCAL, MYCM #### [facility] [address] [place] [address] 56776 Comp Metabolic Pr/rfx MGon 1 10-17-2017 (cont.) Normal [facility] Comment on above: Result Comment: Aver age GFR for 30-39 years old: 107 mL/min/1.73sq m Chronic Kidney Disease: <60 mL/min/1.73sq m Kidney failure: <15 mL/min/1.73sq m eGFR calculated using average adult body mass. Additional eGFR calculator available at: http://www.[employer]/multiple_crcl_2012.htm Performed By: #### L ACDS, TROPI, PRCAL, MYCM #### [facility] [employer] [address] [place] [address] 40153 Albumin mass conc 2.4 g/dL Low 3.5-5.2 [facility] Comment on above: Performed By: #### L ACDS, TROPI, PRCAL, MYCM #### [facility] [address] [place] [address] 14606 Albumin/Globulin mass ratio 0.7 {ratio} Low 1.0-2.5 [facility] Comment on above: Performed By: #### L ACDS, TROPI, PRCAL, MYCM #### [facility] [address] [place] [address] 88485 Alkaline Phos 76 U/L Normal 35-104 [facility] Comment on above: Performed By: #### L ACDS, TROPI, PRCAL, MYCM #### [facility] [employer] [address] [place] [address] 83065 ALT enzyme act/vol 25 U/L Normal 5-33 [facility] Comment on above: Performed By: #### L ACDS, TROPI, PRCAL, MYCM #### [facility] [employer] [address] [place] [address] 92711 Anion gap molar conc 8 mmol/L Low 9-17 [facility] Comment on above: Performed By: #### L ACDS, TROPI, PRCAL, MYCM #### [facility] [employer] [address] [place] [address] 51944 AST enzyme act/vol 26 U/L Normal <32 [facility] Comment on above: Performed By: #### L ACDS, TROPI, PRCAL, MYCM #### [facility] [employer] [address] [place] [address] 30519 Bilirubin Ql (U) 0.34 mg/dL Normal 0.3-1.2 [facility] Comment on above: Performed By: #### L ACDS, TROPI, PRCAL, MYCM #### [facility] [employer] [address] [place] [address] 39504 Calcium mass conc 7.8 mg/dL Low 8.6-10.4 [facility] Comment on above: Performed By: #### L ACDS, TROPI, PRCAL, MYCM #### [facility] [employer] [address] [place] [address] 67331 Chloride molar conc 99 mmol/L Normal 98-107 [facility] Comment on above: Performed By: #### L ACDS, TROPI, PRCAL, MYCM #### [facility] [address] [place] [address] 88966 CO2 molar conc 23 mmol/L Normal 20-31 [facility] Comment on above: Performed By: #### L ACDS, TROPI, PRCAL, MYCM #### [facility] [employer] [address] [place] [address] 56674 Creatinine mass conc 1.04 mg/dL High 0.50-0.90 [facility] Comment on above: Performed By: #### L ACDS, TROPI, PRCAL, MYCM #### [facility] [employer] [address] [place] [address] 43234 GFR, Amer >60 Normal >60 [facility] Comment on above: Performed By: #### L ACDS, TROPI, PRCAL, MYCM #### [facility] [employer] [address] [place] [address] 93650 GFR,non Amer 59 mL/min Low >60 [facility] Comment on above: Performed By: #### L ACDS, TROPI, PRCAL, MYCM #### [facility] [employer] [address] [place] [address] 62531 Glucose mass conc 109 mg/dL High 70-99 [facility] Comment on above: Performed By: #### L ACDS, TROPI, PRCAL, MYCM #### [facility] [employer] [address] [place] [address] 83966 Potassium molar conc 3.8 mmol/L Normal 3.7-5.3 [facility] Comment on above: Performed By: #### L ACDS, TROPI, PRCAL, MYCM #### [facility] [employer] [address] [place] [address] 70933 Protein mass conc 5.8 g/dL Low 6.4-8.3 [facility] Comment on above: Performed By: #### L ACDS, TROPI, PRCAL, MYCM #### [facility] [employer] [address] [place] [address] 35052 Sodium molar conc 130 mmol/L Low 135-144 [facility] Comment on above: Performed By: #### L ACDS, TROPI, PRCAL, MYCM #### [facility] [employer] [address] [place] [address] Urea nitrogen mass conc 15 mg/dL Normal -20 [facility] Comment on above: Performed By: #### L ACDS, TROPI, PRCAL, MYCM #### [facility] [address] [place] [address] 85594 BUN/CRE Ratio NOT REPORTED Normal - [facility] Comment on above: Performed By: #### L ACDS, TROPI, PRCAL, MYCM #### [facility] [employer] [address] [place] [address] 62093 Staging: NOT REPORTED Normal [facility] Comment on above: Performed By: #### L ACDS, TROPI, PRCAL, MYCM #### [facility] [address] [place] [address] 14254 Magnesiumon 08-17-2018 Magnesium mass conc 2.2 mg/dL Normal 1.6-2.6 [facility] Comment on above: Performed By: #### L ACDS, TROPI, PRCAL, MYCM #### [facility] [address] [place] [address] 16438 Procalcitoninon 08-17-2018 Protein mass conc 1.48 ng/mL High <0.09 [facility] Comment on above: Result Comment: Suspected Sepsis: [...] entered into the Change in Procalcitonin Calculator ([email or web address]-meo-[email or web address].[email or web address]) to determine the patient's Mortality Risk Prognosis Performed By: #### L ACDS, TROPI, PRCAL, MYCM #### [address] [address] Sedimentation Rateon 018 Sedimentation Rate 97 mm High 0-20 [facility] Comment on above: Performed By: #### L ACDS, TROPI, PRCAL, MYCM #### [address] [address] CBC with Diffon 08-16-2018 Abs. Basophil 0.00 k/uL Normal 0.00-0.20 [facility] Comment on above: Performed By: #### L ACDS, TROPI, PRCAL, MYCM #### [address] 8[address] Abs.Imm.Granulocyte 0.11 k/uL Normal 0.00-0.30 [facility] Comment on above: Performed By: #### L ACDS, TROPI, PRCAL, MYCM #### [address] [address]157 Abs.Neutrophil (Seg) 4.60 k/uL Normal 1.50-8.10 [facility] Comment on above: Performed By: #### L ACDS, TROPI, PRCAL, MYCM #### [facility] [employer] [address] [place] [address] 26969 Basophils/100 WBC (Bld) 0 % Normal 0-2 [facility] Comment on above: Performed By: #### L ACDS, TROPI, PRCAL, MYCM #### [address] [address] Eosinophils #/vol (Bld) 0.00 10*3/uL Normal 0.00-0.44 [facility] Comment on above: Performed By: #### L ACDS, TROPI, PRCAL, MYCM #### [address] [address]98 Eosinophils/100 WBC (Bld) 0 % Low 1-4 [facility] Comment on above: Performed By: #### L ACDS, TROPI, PRCAL, MYCM #### [address] [address] Immature granulocytes #/vol (Bld) 2 % High 0 [facility] Comment on above: Performed By: #### L ACDS, TROPI, PRCAL, MYCM #### [address] [address] Lymphocytes #/vol (Bld) 0.67 10*3/uL Low 1.10-3.70 [facility] Comment on above: Performed By: #### L ACDS, TROPI, PRCAL, MYCM #### [address] [address]18 Lymphocytes/100 WBC (Bld) 12 % Low 24-43 [facility] Comment on above: Performed By: #### L ACDS, TROPI, PRCAL, MYCM #### [address] [address] Monocytes #/vol (Bld) 0.22 10*3/uL Normal 0.10-1.20 [facility] Comment on above: Performed By: #### L ACDS, TROPI, PRCAL, MYCM #### [address] [address] Monocytes/100 WBC (Bld) 4 % Normal 3-12 [facility] Comment on above: Performed By: #### L ACDS, TROPI, PRCAL, MYCM #### [address] [address] Morphology Interp Rehan (Bld) ANISOCYTOSIS PRESENT Normal [facility] Comment on above: Result Comment: INCR EASED BANDS PRESENT 1+ TEARDROPS Performed By: #### L ACDS, TROPI, PRCAL, MYCM #### [address] [address] Neutrophil (Seg) 82 % High 36-65 [facility] Comment on above: Performed By: #### L ACDS, TROPI, PRCAL, MYCM #### [address] [address] Erythrocyte distribution width Ratio (RBC) 15.1 % High 11.8-14.4 [facility] Comment on above: Performed By: #### L ACDS, TROPI, PRCAL, MYCM #### [address] [address] Hematocrit Volume Fraction (Bld) 34.1 % Low 36.3-47.1 [facility] Comment on above: Performed By: #### L ACDS, TROPI, PRCAL, MYCM #### [address] [address] Hemoglobin mass conc (Bld) 10.0 g/dL Low 11.9-15.1 [facility] Comment on above: Performed By: #### L ACDS, TROPI, PRCAL, MYCM #### [address] [address] MCH Entitic mass (RBC) 28.7 pg Normal 25.2-33.5 [facility] Comment on above: Performed By: #### L ACDS, TROPI, PRCAL, MYCM #### [address] [address] MCHC mass conc (RBC) 29.3 g/dL Normal 28.4-34.8 [facility] Comment on above: Performed By: #### L ACDS, TROPI, PRCAL, MYCM #### [address] [address] MCV Entitic volume (RBC) 98.0 fL Normal 82.6-102.9 [facility] Comment on above: Performed By: #### L ACDS, TROPI, PRCAL, MYCM #### [address] [address] NRBC Automated 0.0 per 100 WBC Normal 0.0 [facility] Comment on above: Performed By: #### L ACDS, TROPI, PRCAL, MYCM #### [address] [address] Platelet mean volume Entitic volume (Bld) 11.1 fL Normal 8.1-13.5 [facility] Comment on above: Performed By: #### L ACDS, TROPI, PRCAL, MYCM #### [address] [address] Platelets #/vol (Bld) 119 10*3/uL Low 138-453 [facility] Comment on above: Performed By: #### L ACDS, TROPI, PRCAL, MYCM #### [address] [address] RBC #/vol (Bld) 3.48 10*6/uL Low 3.95-5.11 [facility] Comment on above: Performed By: #### L ACDS, TROPI, PRCAL, MYCM #### [address] [address] WBC #/vol (Bld) 5.6 10*3/uL Normal 3.5-11.3 [facility] Comment on above: Performed By: #### L ACDS, TROPI, PRCAL, MYCM #### [facility] [address] [place] [address] Auto Diff Performed NOT REPORTED Normal [facility] Comment on above: Performed By: #### L ACDS, TROPI, PRCAL, MYCM #### [facility] [address] [place] [address] Platelets #/vol (Bld) NOT REPORTED Normal [facility] Comment on above: Performed By: #### L ACDS, TROPI, PRCAL, MYCM #### [facility] [employer] [address] [place] [address] RBC morphology finding Nom (Bld) NOT REPORTED Normal [facility] Comment on above: Performed By: #### L ACDS, TROPI, PRCAL, MYCM #### [facility] [address] [place] [address] WBC Morphology NOT REPORTED Normal [facility] Comment on above: Performed By: #### L ACDS, TROPI, PRCAL, MYCM #### [facility] [employer] [address] [place] [address] HEAD WO CONTRASTon 2017 CT HEAD [...] ACDS, TROPI, PRCAL, MYCM #### [facility] [employer] [address] [place] [id number] Comp Metabolic Pr/rfx MGon 1 10-16-2017 (cont.) Normal [facility] Comment on above: Result Comment: Aver age GFR for 30-39 years old: 107 mL/min/1.73sq m Chronic Kidney Disease: <60 mL/min/1.73sq m Kidney failure: <15 mL/min/1.73sq m eGFR calculated using average adult body mass. Additional eGFR calculator available at: http://www.[employer]/multiple_crcl_2012.htm Performed By: #### P T, CMPX, MG, CDP #### [facility] [address] [place] [address] Albumin mass conc 2.3 g/dL Low 3.5-5.2 [facility] Comment on above: Performed By: #### P T, CMPX, MG, CDP #### [facility] [employer] [address] [place] [address] Albumin/Globulin mass ratio 0.7 {ratio} Low 1.0-2.5 [facility] Comment on above: Performed By: #### P T, CMPX, MG, CDP #### [employer] [address] [place] [address] Alkaline Phos 67 U/L Normal 35-104 [facility] Comment on above: Performed By: #### P T, CMPX, MG, CDP #### [facility] [address] [place] [address] ALT enzyme act/vol 33 U/L Normal 5-33 [facility] Comment on above: Performed By: #### P T, CMPX, MG, CDP #### [facility] [employer] [address] [place] [address] Anion gap molar conc 11 mmol/L Normal 9-17 [facility] Comment on above: Performed By: #### P T, CMPX, MG, CDP #### [facility] [employer] [address] [place] [address] AST enzyme act/vol 41 U/L High <32 [facility] Comment on above: Performed By: #### P T, CMPX, MG, CDP #### [facility] [employer] [address] [place] [address] Bilirubin Ql (U) 0.40 mg/dL Normal 0.3-1.2 [facility] Comment on above: Performed By: #### P T, CMPX, MG, CDP #### [facility] [employer] [address] [place] [address] Calcium mass conc 7.3 mg/dL Low 8.6-10.4 [facility] Comment on above: Performed By: #### P T, CMPX, MG, CDP #### [facility] [employer] [address] [place] [address] Chloride molar conc 105 mmol/L Normal 98-107 [facility] Comment on above: Performed By: #### P T, CMPX, MG, CDP #### [facility] [employer] [address] [place] [address] CO2 molar conc 18 mmol/L Low 20-31 [facility] Comment on above: Performed By: #### P T, CMPX, MG, CDP #### [facility] [employer] [address] [place] [address] Creatinine mass conc 1.09 mg/dL High 0.50-0.90 [facility] Comment on above: Performed By: #### P T, CMPX, MG, CDP #### [facility] [employer] [address] [place] [address] GFR, Amer >60 Normal >60 [facility] Comment on above: Performed By: #### P T, CMPX, MG, CDP #### [facility] [employer] [address] [place] [address] GFR,non Amer 56 mL/min Low >60 [facility] Comment on above: Performed By: #### P T, CMPX, MG, CDP #### [facility] [employer] [address] [place] [address] Glucose mass conc 128 mg/dL High 70-99 [facility] Comment on above: Performed By: #### P T, CMPX, MG, CDP #### [facility] [employer] [address] [place] [address] Potassium molar conc 3.6 mmol/L Low 3.7-5.3 [facility] Comment on above: Performed By: #### P T, CMPX, MG, CDP #### [facility] [employer] [address] [place] [address] Protein mass conc 5.5 g/dL Low 6.4-8.3 [facility] Comment on above: Performed By: #### P T, CMPX, MG, CDP #### [facility] [employer] [address] [place] [address] Sodium molar conc 134 mmol/L Low 135-144 [facility] Comment on above: Performed By: #### P T, CMPX, MG, CDP #### [facility] [employer] [address] [place] [address] Urea nitrogen mass conc 17 mg/dL Normal 6-20 [facility] Comment on above: Performed By: #### P T, CMPX, MG, CDP #### [facility] [employer] [address] [place] [address] BUN/CRE Ratio NOT REPORTED Normal 06-24 [facility] Comment on above: Performed By: #### P T, CMPX, MG, CDP #### [facility] [employer] [address] [place] [address] Staging: NOT REPORTED Normal [facility] Comment on above: Performed By: #### P T, CMPX, MG, CDP #### [facility] [employer] [address] [place] [address] Lactic Acid,Whole Blon 08-16 Lactic Acid,Whole Bl 1.2 mmol/L Normal 0.7-2.1 [facility] Comment on above: Performed By: #### L ACDS, TROPI, PRCAL, MYCM #### [facility] [employer] [address] [place] [address] Lactic Acid,Whole Bl 1.2 mmol/L Normal 0.7-2.1 [facility] Comment on above: Performed By: #### L ACWB #### [address] [address] Magnesiumon 08-16-2018 Magnesium mass conc 2.0 mg/dL Normal 1.6-2.6 [facility] Comment on above: Performed By: #### L ACDS, TROPI, PRCAL, MYCM #### [facility] [employer] [address] [place] [address] Mycoplasma Ab,IgMon 08-16-20 18 Mycoplasma Ab,IgM 0.22 Normal <0.91 [facility] Comment on above: Result Comment: Reference Range: <=0.90 Negative 0.91-1.09 Equivocal >=1.10 Positive Performed By: #### L ACDS, TROPI, PRCAL, MYCM #### [facility] [employer] [address] [place] [address] [id number] PTon 08-16-2018 INR Coag RelTime (PPP) 1.0 {INR} Normal [facility] Comment on above: Result Comment: Therapeutic Range: Moderate Anticoagulant Intensity: INR = 2.0-3.0 High Anticoagulant Intensity: INR = 2.5-3.5 Performed By: #### P T, CMPX, MG, CDP #### [facility] [employer] [address] [place] [address] [phone] Prothrombin time (PT) Coag time (PPP) 11.0 s Normal 9.0-12.0 [facility] Comment on above: Performed By: #### P T, CMPX, MG, CDP #### [facility] [employer] [address] [place] [address] [phone] Troponinon 08-16-2018 Troponin I.cardiac mass conc Normal [...] diagnosis. Performed By: #### T ROPI #### [address] [phone] Troponin I.cardiac mass conc ng/mL Normal <0.03 [facility] Comment on above: Result Comment: Trop onin T results cannot be compared to Troponin-I results. Performed By: #### T ROPI #### [address] [phone] XR CHEST (2 VW)on 08-16-2018 XR CHEST [...] Lactic Acid,Sep Wbld 3.5 mmol/L High 0.5-1.9 [facility] Comment on above: Performed By: #### L ACDS, TROPI, PRCAL, MYCM #### [address] [phone] Lactic Acid, Sepsis NOT REPORTED Normal 0.5-1.9 [facility] Comment on above: Performed By: #### L ACDS, TROPI, PRCAL, MYCM #### [address] [phone] Legionella Ag, Uron 08-15-20 18 Legionella Ag, [...] above: Performed By: #### U LAG #### [address] [phone] Procalcitoninon 08-15-2018 Protein mass conc 3.39 ng/mL High <0.09 [facility] Comment on above: Result Comment: Suspected Sepsis: [...] entered into the Change in Procalcitonin Calculator (www.rdfiki-tla-etqklfnrxv.[employer]) to determine the patient's Mortality Risk Prognosis Performed By: #### L ACDS, TROPI, PRCAL, MYCM #### [employer] [address] [place] [address] [phone] Strep pneum Ag,CSF/Uron 08-05 Strep pneum Ag,CSF/Ur Specimen Descripti on .CLEAN CATCH URINE Special Requests NOT REPORTED Direct Exam NEGATIVE: Strep pneumoniae antigen not detected Report Status FINAL 08/15/2018 Normal [facility] Comment on above: Performed By: #### S PAG #### [employer] [address] [place] [address] Troponinon 08-15-2018 Troponin I.cardiac mass conc ng/mL Normal <0.03 [facility] Comment on above: Result Comment: Trop onin T results cannot be compared to Troponin-I results. Performed By: #### L ACDS, TROPI, PRCAL, MYCM #### [employer] [address] [place] [address] [phone] Troponin I.cardiac mass conc Normal [facility] [...] #### L ACDS, TROPI, PRCAL, MYCM #### [employer] [address] [place] [address] Urinalysison 11-18-2017 Bilirubin, Urine Negative Invalid Interpretation Code NEG;NEGATIVE [facility] Blood, Urine Moderate Abnormal NEG;NEGATIVE [facility] Interpretation and review of laboratory results Abnormal Invalid Interpretation Code [facility] Nitrite, Urine Negative Invalid Interpretation Code NEG;NEGATIVE [facility] Protein, Urine Negative Invalid Interpretation Code NEG;NEGATIVE mg/dL [facility] RBCs, Urine 1 /HPF Invalid Interpretation Code 0 - 5 [facility] Squamous Epithelial < 1 Invalid Interpretation Code 0 - 40 /HPF [facility] Urine, bacteria in sediment Rare Invalid Interpretation Code NS;RARE /HPF [facility] Urine, character Hazy Invalid Interpretation Code [facility] Urine, color Yellow Invalid Interpretation Code [facility] Urine, glucose presence Negative Invalid Interpretation Code NEG;NEGATIVE mg/dL [facility] Urine, ketones presence Negative Invalid Interpretation Code NEG;NEGATIVE mg/dL [facility] Urine, leukocyte esterase presence Small Abnormal Negative [facility] Urine, pH 6.0 [pH] Invalid Interpretation Code 4.5 - 8.0 [facility] Urine, specific gravity 1.014 1 Invalid Interpretation Code 1.003 - 1.029 [facility] Urobilinogen, Urine < 2.0 Invalid Interpretation Code <2 mg/dL [facility] WBCs, Urine 6 /HPF High 0 - 5 [facility] CBC and Differentialon 11-17 Basophils 0.7 % Invalid Interpretation Code [facility] Basophils 0.1 K/mcL Invalid Interpretation Code 0 - 0.2 [facility] Eosinophils 0.2 K/mcL Invalid Interpretation Code 0 - 0.5 [facility] Erythrocytes (RBC) 3.97 M/mcL Invalid Interpretation Code 3.7 - 5.0 [facility] Hematocrit (HCT) 35.7 % Invalid Interpretation Code 34.4 - 44.8 % [facility] Hemoglobin (HGB) 12.2 g/dL Invalid Interpretation Code 11.6 - 15.4 g/dL [facility] Interpretation and review of laboratory results Abnormal Invalid Interpretation Code [facility] Lymphocytes 2.1 K/mcL Invalid Interpretation Code 1.0 - 3.7 [facility] MCH 30.6 pg Invalid Interpretation Code 27.9 - 33.9 pg [facility] MCHC 34.0 g/dL Invalid Interpretation Code 33.1 - 35.1 g/dL [facility] MCV 89.8 fL Invalid Interpretation Code 82.6 - 98.9 [facility] Monocytes 0.6 K/mcL Invalid Interpretation Code 0.1 - 0.6 [facility] Neutrophils 6.6 K/mcL Invalid Interpretation Code 1.2 - 6.9 [facility] Platelet mean volume (PMV) 8.6 fL Invalid Interpretation Code 7.0 - 10.6 [facility] Platelets 196 K/mcL Invalid Interpretation Code 162 - 402 [facility] RDW-CA 15.0 % High 10 - 14.4 % [facility] Segmented Neut 69.6 % Invalid Interpretation Code [facility] T8 suppressor/100 cells 1.8 10*3/uL Invalid Interpretation Code [facility] T8 suppressor/100 cells 21.8 10*3/uL Invalid Interpretation Code [facility] T8 suppressor/100 cells 6.1 10*3/uL Invalid Interpretation Code [facility] WBC (Leukocytes) 9.5 K/mcL Invalid Interpretation Code 3.4 - 10.6 [facility] Comprehensive Metabolic Pane ananda 11-17-2017 Alanine aminotransferase (ALT) 18 U/L Invalid Interpretation Code 14 - 65 U/L [facility] Albumin 3.1 g/dL Low 3.2 - 5.2 g/dL [facility] Alkaline phosphatase (ALP) 78 U/L Invalid Interpretation Code 40 - 140 U/L [facility] Aspartate aminotransferase (AST) 7 U/L Invalid Interpretation Code 0 - 45 U/L [facility] Calcium 8.6 mg/dL Invalid Interpretation Code 8.4 - 10.2 mg/dL [facility] Chloride 106 mmol/L Invalid Interpretation Code 98 - 108 mmol/L [facility] CO2 27 mmol/L Invalid Interpretation Code 21 - 32 mmol/L [facility] Creatinine 1.13 mg/dL High 0.4 - 1.1 mg/dL [facility] eGFR (black) mL/min/{1.73_m2} Invalid Interpretation Code ml/min/1.73sq .m [facility] eGFR (non-black) 54 mL/min/{1.73_m2} Low >60 [facility] Glucose 113 mg/dL High 70 - 99 mg/dL [facility] Interpretation and review of laboratory results Abnormal Invalid Interpretation Code [facility] Potassium 3.7 mmol/L Invalid Interpretation Code 3.5 - 5.1 mmol/L [facility] Protein 6.8 g/dL Invalid Interpretation Code 6 - 8 g/dL [facility] Sodium 140 mmol/L Invalid Interpretation Code 135 - 145 mmol/L [facility] Urea nitrogen 17 mg/dL Invalid Interpretation Code 8 - 25 mg/dL [facility] Urine, bilirubin presence 0.4 mg/dL Invalid Interpretation Code 0.3 - 1.2 mg/dL [facility] Lipaseon 11-17-2017 Lipase 167 U/L Invalid Interpretation Code 73 - 393 U/L [facility] Vital Signs Date Time Vital Sign Value Performing Clinician Yovani mclaughlin 05-24-2025 11:47-0400 Body height 157.5 cm Jennie WangYouNDigby Work Phone: [facility] 05-24-2025 11:47-0400 Body mass index (BMI) [Ratio] 38.41 kg/m2 Jennie WangYouNDigby Work Phone: [facility] 05-24-2025 11:47-0400 Body weight 95.25 kg Jennie WangYouNDigby Work Phone: [facility] 05-24-2025 11:47-0400 Diastolic blood pressure 80 mm[Hg] Jennie WangYouNDigby Work Phone: [facility] 05-24-2025 11:47-0400 Respiratory rate 18 /min JenniePicBadgesNDigby Work Phone: [facility] 05-24-2025 11:47-0400 SaO2% (BldA) [Mass fraction] 98 % Jennie WangYouNDigby Work Phone: [facility] 05-24-2025 11:47-0400 Systolic blood pressure 120 mm[Hg] Jennie WangYouN-TRIP RIDER Work Phone: [facility] 04-20-2025 12:32-0400 Body height 157.5 cm Christopher Bohach DPM Work Phone: [facility] 04-20-2025 12:32-0400 Body mass index (BMI) [Ratio] 38.41 kg/m2 Christopher Bohach DPM Work Phone: [facility] 04-20-2025 12:32-0400 Body weight 95.25 kg Christopher Bohach DPM Work Phone: [facility] 04-20-2025 12:32-0400 Diastolic blood pressure 89 mm[Hg] Christopher Bohach DPM Work Phone: [facility] 04-20-2025 12:32-0400 Heart rate 101 /min Christopher Bohach DPM Work Phone: [facility] 04-20-2025 12:32-0400 Systolic blood pressure 128 mm[Hg] Christopher Bohach DPM Work Phone: [facility] 04-06-2025 16:21-0400 Body height 157.5 cm Christopher Bohach DPM Work Phone: [facility] 04-06-2025 16:21-0400 Body mass index (BMI) [Ratio] 38.41 kg/m2 Christopher Bohach DPM Work Phone: [facility] 04-06-2025 16:21-0400 Body weight 95.25 kg Christopher Bohach DPM Work Phone: [facility] 04-06-2025 16:21-0400 Diastolic blood pressure 80 mm[Hg] Christopher Bohach DPM Work Phone: [facility] 04-06-2025 16:21-0400 Heart rate 89 /min Christopher Bohach DPM Work Phone: [facility] 04-06-2025 16:21-0400 Systolic blood pressure 118 mm[Hg] Christopher Bohach DPM Work Phone: [facility] [employer] 04-04-2025 23:15-0400 Diastolic blood pressure 70 mm[Hg] Severo Case MD Work Phone: [facility] [employer] 04-04-2025 23:15-0400 Heart rate 74 /min [facility] Case MD [facility] 04-04-2025 23:15-0400 Respiratory rate 16 /min Severo Case MD [facility] 04-04-2025 23:15-0400 SaO2% (BldA) [Mass fraction] 97 % Severo Case MD Work Phone: [facility] [employer] 04-04-2025 23:15-0400 Systolic blood pressure 122 mm[Hg] Severo Case MD [facility] 04-04-2025 21:24-0400 Body height 152.4 cm Severo Case MD [facility] 04-04-2025 21:24-0400 Body mass index (BMI) [Ratio] 41.99 kg/m2 Severo Case MD Work Phone: [facility] [employer] 04-04-2025 21:24-0400 Body weight 97.52 kg Severo Case MD Work Phone: [facility] [employer] 04-04-2025 21:15-0400 Body temperature 99 [degF] Severo Case MD Work Phone: [facility] [employer] 03-14-2025 12:02-0400 Body height 157.5 cm Lynn Block MD Work Phone: [facility] 03-14-2025 12:02-0400 Body mass index (BMI) [Ratio] 38.41 kg/m2 Lynn Block MD Work Phone: [facility] 03-14-2025 12:02-0400 Body weight 95.25 kg Lynn Block MD Work Phone: [facility] 12-06-2024 13:00-0500 Body height 157.5 cm Lynn Block MD Work Phone: [facility] 12-06-2024 13:00-0500 Body mass index (BMI) [Ratio] 38.41 kg/m2 Lynn Block MD Work Phone: [facility] 12-06-2024 13:00-0500 Body weight 95.25 kg Lynn Block MD Work Phone: [facility] 11-14-2024 11:31-0500 Body height 157.5 cm Fozia Meng [employer] Work Phone: [facility] 11-14-2024 11:31-0500 Body mass index (BMI) [Ratio] 37.9 kg/m2 Fozia Meng [employer] Work Phone: [facility] 11-14-2024 11:31-0500 Body weight 93.98 kg Fozia Eamongel [employer] Work Phone: [facility] 11-14-2024 11:31-0500 Diastolic blood pressure 80 mm[Hg] Fozia Eamongel [employer] Work Phone: [facility] 11-14-2024 11:31-0500 Systolic blood pressure 134 mm[Hg] Fozia Meng [employer] Work Phone: [facility] 10-11-2024 09:42-0500 Body height 157.5 cm Sherman Adair MD Work Phone: [facility] 10-11-2024 09:42-0500 Body mass index (BMI) [Ratio] 38.23 kg/m2 Sherman Adair MD Work Phone: [facility] 10-11-2024 09:42-0500 Body temperature 98.29 [degF] Sherman Adair MD Work Phone: [facility] 10-11-2024 09:42-0500 Body weight 94.8 kg Sherman Adair MD Work Phone: [facility] 09-14-2024 11:30-0500 Body height 157.5 cm Fozia Meng [employer] Work Phone: [facility] 09-14-2024 11:30-0500 Body mass index (BMI) [Ratio] 39.91 kg/m2 Fozia Knutsongel [employer] Work Phone: [facility] 09-14-2024 11:30-0500 Body weight 98.97 kg Fozia Knutsongel [employer] Work Phone: [facility] 09-14-2024 11:30-0500 Diastolic blood pressure 70 mm[Hg] Fozia Knutsongel [employer] Work Phone: [facility] 09-14-2024 11:30-0500 Systolic blood pressure 140 mm[Hg] Fozia Knutsongel [employer] Work Phone: [facility] 06-10-2024 10:09-0400 Body height 157.5 cm Tiffanie Casas MD Work Phone: [facility] 06-10-2024 10:09-0400 Body mass index (BMI) [Ratio] 38.96 kg/m2 Tiffanie Casas MD Work Phone: [facility] 06-10-2024 10:09-0400 Body weight 96.62 kg Tiffanie Casas MD Work Phone: [facility] 06-10-2024 10:09-0400 Diastolic blood pressure 84 mm[Hg] Tiffanie Casas MD Work Phone: [facility] 06-10-2024 10:09-0400 Systolic blood pressure 132 mm[Hg] Tiffanie Casas MD Work Phone: [facility] 05-10-2024 14:20-0400 Body height 157.5 cm Cheryl Miles DO Work Phone: [facility] 05-10-2024 14:20-0400 Body mass index (BMI) [Ratio] 38.41 kg/m2 Cheryl Ginger DO Work Phone: [facility] 05-10-2024 14:20-0400 Body weight 95.25 kg Cheryl Ginger DO Work Phone: [facility] 05-10-2024 14:20-0400 Diastolic blood pressure 74 mm[Hg] Cheryl Ginger DO Work Phone: [facility] 05-10-2024 14:20-0400 Heart rate 83 /min Cheryl Ginger DO Work Phone: [facility] 05-10-2024 14:20-0400 SaO2% (BldA) [Mass fraction] 97 % Cheryl Ginger DO Work Phone: [facility] 05-10-2024 14:20-0400 Systolic blood pressure 118 mm[Hg] Cheryl Ginger DO Work Phone: [facility] 03-03-2023 14:44-0400 Body temperature 98.49 [degF] CJ Hassmann DPM Work Phone: [facility] 03-03-2023 14:44-0400 Diastolic blood pressure 87 mm[Hg] CJ Hassmann DPM Work Phone: [facility] 03-03-2023 14:44-0400 Heart rate 94 /min CJ Hassmann DPM Work Phone: [facility] 03-03-2023 14:44-0400 Systolic blood pressure 139 mm[Hg] CJ Hassmann DPM Work Phone: [facility] 07-02-2022 09:36-0400 Body height 157.5 cm [employer] Work Phone: [facility] 07-02-2022 09:36-0400 Body mass index (BMI) [Ratio] 38.67 kg/m2 [employer] Work Phone: [facility] 07-02-2022 09:36-0400 Body weight 95.89 kg [employer] Work Phone: [facility] 09-16-2020 20:53-0500 BMI (Body Mass Index) 39.32 kg/m2 [facility] 09-16-2020 20:53-0500 Body Temperature 99.5 [degF] [place], [place] 09-16-2020 20:53-0500 Body weight 97.52 kg [place] 09-16-2020 20:53-0500 BP Diastolic 109 mm[Hg] [facility] 09-16-2020 20:53-0500 BP Systolic 189 mm[Hg] [facility] [place] 09-16-2020 20:53-0500 Height 157.5 cm [place], [place] 09-16-2020 20:53-0500 Pulse (Heart Rate) 99 /min [place], [place] 09-16-2020 20:53-0500 Pulse Oximetry 96 % [place] 09-16-2020 20:53-0500 Respiratory Rate 18 /min [place] Encounters Encounter Date Encounter Type Care Provider Facility Start: 06-12-2025 End: 06-12-2025 ambulatory JANEL SAMSON [facility] Start: 06-12-2025 End: 06-12-2025 Subsequent hospital visit by physician [facility] Laboratory Schedule [facility] Laboratory Comment on above: Arrived Start: 05-24-2025 End: 05-24-2025 BamCerebrexo Zeugma Systemsheet Jennie Van GUILLOTINE TRIMMER-TRIP RIDER Work Phone: [facility] Start: 05-24-2025 End: 05-24-2025 RaphaelCerebrexo Zeugma Systemsajay Van GUILLOTINE TRIMMER-TRIP RIDER Work Phone: [facility] Start: 05-24-2025 End: 05-24-2025 ambulatory JENNIE VAN Not Available Start: 05-24-2025 End: 05-24-2025 Office outpatient visit 25 minutes Jennie Van GUILLOTINE TRIMMER-TRIP RIDER Work Phone: [facility] [place] [facility] Comment on above: BUCK (obstructive sle ep apnea) (Primary Dx); Cervical paraspinal muscle spasm; Cervical radiculopathy Start: 05-23-2025 End: 05-23-2025 Telephone encounter Lynn Block MD Work Phone: [facility] Neurology 111 Start: 05-15-2025 End: 05-15-2025 ambulatory [facility]IPE [facility] Start: 05-15-2025 End: 05-15-2025 Subsequent hospital visit by physician [facility] Schedule [facility] Comment on above: Arrived Start: 04-20-2025 End: 04-20-2025 Bamboo flowsheet Robbin Sánchez DPM Work Phone: [facility] Start: 04-20-2025 End: 04-20-2025 Bamboo flowsheet Robbin Sánchez DPM Work Phone: [facility] Start: 04-20-2025 End: 04-20-2025 Office outpatient visit 25 minutes Robbin Sánchez DPM Work Phone: [facility] Comment on above: MRSA (methicillin re [...] Start: 04-14-2025 End: 04-14-2025 ambulatory [facility]IPE BACK [facility] Start: 04-14-2025 End: 04-14-2025 Subsequent hospital visit by physician Felipe Adam MD Work Phone: [facility] Comment on above: Hyperglycemia; Mixed hyperlipidemia; Chronic renal impairment, stage 3a (HCC) Start: 04-12-2025 End: 04-12-2025 Clinisync Result Encounter Robbin GARCIAM Work Phone: [facility] External Department Unsolicited Start: 04-12-2025 End: 04-12-2025 Clinisync Result Encounter Robbin GARCIAM Work Phone: [facility] External Department Unsolicited Start: 04-11-2025 End: 04-11-2025 Clinisync Result Encounter Robbin GARCIAM Work Phone: [facility] External Department Unsolicited Start: 04-11-2025 End: 04-11-2025 Clinisync Result Encounter Robbin Sánchez DPM Work Phone: [facility] External Department Unsolicited Start: 04-11-2025 End: 04-13-2025 ambulatory [facility] Start: 04-11-2025 End: 04-13-2025 Subsequent hospital visit by physician Robbin GARCIAM Work Phone: [facility] Comment on above: Pain in right foot Start: 04-06-2025 End: 04-06-2025 Office outpatient visit 25 minutes Robbin GARCIAM Work Phone: [facility] Comment on above: Right foot pain (Vikki baldev Dx); Skin ulcer of toe of right foot with fat layer exposed (HCC); Infection of toe; Idiopathic progressive polyneuropathy; Generalized edema Start: 04-06-2025 End: 04-06-2025 ambulatory ROBBIN SÁNCHEZ Not Available Start: 04-06-2025 End: 04-06-2025 Bamboo flowsheet Robbin Sánchez DPM Work Phone: [facility] Start: 04-06-2025 End: 04-06-2025 Bamboo flowsheet Robbin Sánchez DPM Work Phone: [facility] Start: 04-04-2025 End: 04-05-2025 Emergency department patient visit Severo Case MD Work Phone: [facility] Emergency Department Comment on above: Pressure injury of d eep tissue of toe, unspecified laterality (Primary Dx) Start: 03-14-2025 End: 03-14-2025 Bamboo flowsheet Lynn Block MD Work Phone: [facility] Start: 03-14-2025 End: 03-14-2025 Bamboo flowsheet Lynn Block MD Work Phone: [facility] Start: 03-14-2025 End: 03-14-2025 Office outpatient visit 25 minutes Lynn Block MD Work Phone: [facility] S[facility] NEUR B Comment on above: BUCK (obstructive sle ep apnea) (Primary Dx); Claustrophobia ; Hypersomnia Start: 03-14-2025 End: 03-14-2025 ambulatory LYNN BLOCK Not Available Start: 02-15-2025 End: 02-17-2025 ambulatory FELIPE [facility] Start: 02-15-2025 End: 02-17-2025 Subsequent hospital visit by physician Felipe Adam MD Work Phone: [facility] M[facility] Comment on above: Encounter for screen ing mammogram for malignant neoplasm of breast Start: 02-13-2025 ambulatory Facility:[facility] [place] Start: 02-13-2025 End: 02-13-2025 Bamboo flowsheet Tiffanie Casas MD Work Phone: [facility] Start: 02-13-2025 End: 02-13-2025 Bamboo flowsheet Tiffanie Casas MD Work Phone: [facility] Start: 02-13-2025 End: 02-13-2025 ambulatory TIFFANIE CASAS Not Available Start: 02-13-2025 End: 02-13-2025 Office outpatient visit 25 minutes Tiffanie Casas MD Work Phone: [facility] NEUR Comment on above: Charcot's joint, lef t ankle and foot (Primary Dx); Gait instability; Idiopathic progressive polyneuropathy; Intractable 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 (CMS/HCC); Restless legs; Carpal tunnel syndrome, bilateral; BUCK (obstructive sleep apnea) Start: 12-06-2024 End: 12-06-2024 Bamboo flowsheet Lynn Block MD Work Phone: [facility] Start: 12-06-2024 End: 12-06-2024 Bamboo flowsheet Lynn Block MD Work Phone: [facility] Start: 12-06-2024 End: 12-06-2024 ambulatory LYNN BLOCK Not Available Start: 12-06-2024 End: 12-06-2024 Office outpatient new 60 minutes Lynn Block MD Work Phone: [facility] NE[facility] B Comment on above: BUCK (obstructive sle ep apnea) (Primary Dx); BUCK on CPAP; Claustrophobia (CMS/HCC) Start: 11-14-2024 End: 11-14-2024 Bamboo flowsheet Fozia Jamila Meng VP [employer] Work Phone: [facility] Start: 11-14-2024 End: 11-14-2024 Bamboo flowsheet Fozia C Windnagel VP [employer] Work Phone: [facility] Start: 11-14-2024 End: 11-14-2024 Office outpatient visit 25 minutes Fozia Jamila Meng VP [employer] Work Phone: [facility] NE[facility] Comment on above: BUCK on CPAP (Primary Dx); Idiopathic progressive polyneuropathy; Restless legs; Intractable 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 (CMS/HCC) Start: 11-14-2024 End: 11-14-2024 ambulatory FOZIA C LYNDANAGEL Not Available Start: 11-14-2024 End: 11-14-2024 [facility] Start: 11-14-2024 End: 11-14-2024 Subsequent hospital visit by physician Felipe Adam MD Work Phone: [facility] Comment on above: Pre-diabetes; Mixed hyperlipidemia Start: 11-02-2024 End: 11-02-2024 Telephone encounter Janel Allen VP [employer] Work Phone: [facility] 210 Start: 10-11-2024 End: 10-11-2024 Office outpatient new 45 minutes Felipe Adam MD Work Phone: [facility] Comment on above: Thyroid nodule (Prim misa Dx); Lipoma of neck Start: 10-11-2024 End: 10-11-2024 ambulatory FELIPE BACK [facility] Start: 10-05-2024 End: 10-06-2024 Refill Tiffanie Casas MD Work Phone: [facility] NE[facility] Comment on above: Idiopathic progressi ve polyneuropathy; Non-seasonal allergic rhinitis due to pollen Start: 09-14-2024 End: 09-14-2024 Bamboo flowsheet Fozia Meng VP [employer] Work Phone: [facility] Start: 09-14-2024 End: 09-14-2024 Bamboo flowsheet Fozia Meng VP [employer] Work Phone: [facility] Start: 09-14-2024 End: 09-14-2024 Telephone encounter Fozia Meng VP [employer] Work Phone: [facility] 210 Start: 09-14-2024 End: 09-14-2024 Office outpatient visit 25 minutes Fozia Meng VP [employer] Work Phone: [facility] NE[facility] Comment on above: BUCK on CPAP (Primary Dx); Idiopathic progressive polyneuropathy; Intractable 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 (CMS/HCC); Restless legs; Bilateral carpal tunnel syndrome Start: 09-14-2024 End: 09-14-2024 ambulatory FOZIA MENG Not Available Start: 09-09-2024 End: 09-09-2024 Transcribe Orders Fozia Marcus MA [facility] ENT Lien rahman Comment on above: Thyroid nodule (Prim misa Dx) Start: 09-06-2024 End: 09-08-2024 ambulatory [facility] Start: 09-06-2024 End: 09-08-2024 Subsequent hospital visit by physician Felipe Adam MD Work Phone: [facility] Ultrasound Comment on above: Thyroid nodule Start: 08-11-2024 End: 08-11-2024 Refill Tiffanie Casas MD Work Phone: [facility] Comment on above: Idiopathic progressi ve polyneuropathy; Non-seasonal allergic rhinitis due to pollen Start: 06-10-2024 End: 06-10-2024 Bamboo flowsheet Tiffanie Casas MD Work Phone: [facility] Start: 06-10-2024 End: 06-10-2024 Bamboo flowsheet Tiffanie Casas MD Work Phone: [facility] Start: 06-10-2024 End: 06-10-2024 Office outpatient visit 25 minutes Tiffanie Casas MD Work Phone: [facility] Comment on above: Idiopathic progressi ve polyneuropathy (Primary Dx); Bilateral carpal tunnel syndrome; Restless legs; Intractable 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 ([facility]/HCC) Start: 06-10-2024 End: 06-10-2024 ambulatory TIFFANIE CASAS Not Available Start: 05-10-2024 End: 05-10-2024 Subsequent hospital visit by physician Felipe Adam MD Work Phone: [facility] Start: 05-10-2024 End: 05-10-2024 Office outpatient visit 40 minutes Cheryl Miles DO Work Phone: [facility] Comment on above: BUCK (obstructive sle ep apnea); Hypersomnia; Snoring; Class 2 obesity due to excess calories with body mass index (BMI) of 38.0 to 38.9 in adult, unspecified whether serious comorbidity present Start: 02-15-2024 End: 02-15-2024 ambulatory Frances Harris Facility:[facility] Start: 02-15-2024 End: 02-15-2024 ambulatory [facility] Frances Harris Work Phone: [facility] Work Phone: Start: 02-15-2024 End: 02-15-2024 Departed Referred DPM Frances Harris Work Phone: [facility] Start: 06-15-2023 End: 06-15-2023 Subsequent hospital visit by physician Felipe Adam MD Work Phone: [facility] Comment on above: Mixed hyperlipidemia Start: 04-03-2023 ambulatory FELIPE BACK [facility] Start: 03-03-2023 End: 03-03-2023 Office outpatient new 45 minutes CJ Adam GARCIAM Work Phone: [facility] Comment on above: Charcot arthropathy of midfoot (Primary Dx); Gastrocnemius equinus, unspecified laterality; Foot pain, left Start: 02-11-2023 End: 02-12-2023 [facility] Start: 02-05-2023 End: 02-05-2023 Subsequent hospital visit by physician Felipe Adam MD Work Phone: [facility] Comment on above: Pelvic pressure in f emale Start: 02-04-2023 End: 02-05-2023 ambulatory FRANCES Weston [facility] Facility:H1 Start: 01-28-2023 End: 01-29-2023 ambulatory FRANCES Weston [facility] Facility:H1 Start: 01-06-2023 End: 01-06-2023 Emergency department patient visit [facility] Start: 07-09-2022 End: 07-09-2022 Subsequent hospital visit by physician Samantha Lino RD, LD Work Phone: [facility] Diet and Nutrition Comment on above: Arrived Start: 07-02-2022 End: 07-02-2022 Subsequent hospital visit by physician anne Diabetes Education Work Phone: [facility] Diabetic Education Start: 06-25-2022 End: 06-27-2022 Subsequent hospital visit by physician Tennille Additional Xray At [facility] Radiology Comment on above: Foreign body (FB) in soft tissue Start: 06-25-2022 End: 06-27-2022 Subsequent hospital visit by physician [facility] Mri Scanner [facility] MRI Comment on above: Pain of foot, unspec ified laterality; Closed nondisplaced fracture of second metatarsal bone of left foot, initial encounter; Closed nondisplaced fracture of lateral cuneiform of left foot, initial encounter Start: 05-27-2022 End: 2022 Subsequent hospital visit by physician [facility] Ultrasound Room [facility]trasound Comment on above: Neck mass Start: 04-28-2022 End: 04-29-[address] [facility] Start: 04-28-2022 End: 04-28-2022 Subsequent hospital [...] Start: 02-04-2022 End: 02-04-[address] [facility] [address] Start: 02-03-2022 End: 02-03-2022 Subsequent hospital visit by physician Hilaria Trujillo [facility] Start: 01-29-2022 End: 01-29-2022 Subsequent hospital visit by physician Beverly Rangel COMPOTYPE OPERATOR [facility] Comment on above: Arrived Start: 01-27-2022 End: 01-27-2022 Subsequent hospital visit by physician Christel Donohue PT [facility] Comment on above: Arrived Start: 01-24-2022 End: 01-24-2022 Subsequent hospital visit by physician Vanessa Garcia PT [facility] Comment on above: Arrived Start: 01-22-2022 End: 01-22-2022 Subsequent hospital visit by physician Beverly Rangel COMPOTYPE OPERATOR [facility] Start: 01-17-2022 End: 01-17-2022 Subsequent hospital visit by physician Beverly Rangel COMPOTYPE OPERATOR [facility] Comment on above: Arrived Start: 01-13-2022 End: 01-13-2022 Subsequent hospital visit by physician Christel Donohue PT [facility] Start: 01-03-2022 End: 01-03-2022 Subsequent hospital visit by physician Beverly Rangel COMPOTYPE OPERATOR [facility] Comment on above: Arrived [...] Start: 11-29-2021 End: 11-29-[address] [facility] Start: 08-01-2021 End: 08-01-2021 Subsequent hospital [...] by physician Felipe Adam MD Work Phone: [facility] Start: 04-13-2021 End: 04-13-2021 Subsequent hospital visit by physician Felipe Adam MD Work Phone: [facility] Comment on above: Acute cystitis with hematuria Start: 02-13-2021 End: 02-13-2021 Subsequent hospital visit by physician [facility] Andriy19 Pat Screening Schedule [facility]MIT Comment on above: Suspected COVID-19 v irus infection Start: 01-21-2021 End: 01-21-2021 Subsequent hospital visit by physician [facility] Schedule [facility] Comment on above: Viral illness Start: 11-15-2020 End: 11-15-2020 Subsequent hospital visit by physician [facility] Andriy Pat Screening Schedule [facility] Comment on above: Arrived Start: 09-16-2020 End: 09-16-2020 Emergency department patient visit Phillippachecomichael Rooney Work Phone: [facility] ED Comment on above: Acute thoracic [...] End: 08-29-2019 Subsequent hospital visit by physician [facility] Schedule [facility] SLEEP [facility] Comment on above: Arrived Start: 07-28-2019 End: 07-30-2019 Subsequent hospital visit by physician Tennille Additional Xray At [facility] Radiology Comment on above: MRSA (methicillin re sistant Staphylococcus aureus) septicemia (HCC) Start: 06-17-2019 End: 06-17-2019 Subsequent hospital visit by physician Felipe Adam [facility] Laboratory Comment on above: MRSA (methicillin re sistant Staphylococcus aureus) infection Start: 02-03-2019 End: 02-04-2019 Patient encounter procedure TIFFANIE CASAS [facility] Start: 02-03-2019 End: 02-03-2019 Subsequent hospital visit by physician Tiffanie Casas Work Phone: [facility] MRI Comment on above: Brachial neuritis; Peripheral nerve disorder; Spasm of muscle Start: 11-10-2018 End: 11-10-2018 Patient encounter procedure Andrey Early Facility:[facility] Start: 10-18-2018 End: 10-18-2018 Patient encounter procedure Andrey Early Work Phone: [facility] Start: 10-03-2018 Patient encounter procedure Dav Hartman Facility:[facility] Start: 10-03-2018 End: 10-03-2018 Patient encounter procedure [facility] Start: 09-20-2018 End: 09-21-2018 Patient encounter procedure Gosia Hartman Facility:[facility] Start: 09-20-2018 Patient encounter procedure Facility:[id number] Start: 09-13-2018 Patient encounter procedure GOSIA HARTMAN [facility] Start: 09-06-2018 End: 09-06-2018 Patient encounter procedure Historical Provider [facility] Start: 08-31-2018 End: 08-31-2018 Patient encounter procedure [facility] Provider [facility] Start: 08-27-2018 End: 08-28-2018 Patient encounter procedure Gosia Hartman Facility:[facility] Start: 08-27-2018 Patient encounter procedure Facility:[id number] Start: 08-15-2018 End: 08-25-2018 [facility] Start: 04-02-2018 End: 04-02-2018 Patient encounter procedure Melchor Calderon Facility:[facility] Start: 03-23-2018 Patient encounter procedure Shanice Juares Facility:[facility] Start: 02-04-2018 End: 02-04-2018 Ambulatory Melchor Calderon [facility] Start: 11-24-2017 Patient encounter procedure [place] Start: 11-17-2017 End: 11-17-2017 Ambulatory Ceferino Corley Work Phone: [facility] Start: 10-20-2017 End: 10-20-2017 Ambulatory DAKSHA KING [facility] Start: 10-20-2017 Patient encounter procedure [place] Start: 10-09-2017 Ambulatory [facility] Start: 10-09-2017 End: 10-09-2017 Patient encounter procedure [place] Start: 09-16-2017 Patient encounter procedure [place] Start: 08-03-2017 [facility] Start: 03-31-2017 End: 03-31-2017 Ambulatory SHANICE GOLDSTEIN MOR [facility] Procedures Date Procedure Procedure Detail Performing Clinician Start: 06-12-2025 Renal function panel Kevin DAVISC Work Phone: Start: 05-15-2025 Basic metabolic pane l calcium [...] imge docdieudonne Adam MD Work Phone: Start: 04-12-2022 Comprehensive [...] MD Work Phone: Start: 01-21-2021 COVID-19 Pattie smith GUILLOTINE TRIMMER - TRIP RIDER Work Phone: Start: 11-15-2020 COVID-19 Dav flores [...] Phone: Start: 09-24-2019 Hemoglobin glycosyla jamia a1c Janelsanta Allen GUILLOTINE TRIMMER - TRIP RIDER Work Phone: Start: 09-24-2019 VITAMIN B12 & FOLATE Ja danny Dieudonne Allen GUILLOTINE TRIMMER - TRIP RIDER Work Phone: Start: 07-28-2019 Radex spine cervical 4 or 5 views Azalea Knight Work Phone: Start: 07-28-2019 Blood count complete auto&auto difrntl wbc Azalea Knight GUILLOTINE TRIMMER - TRIP RIDER Work Phone: Start: 07-28-2019 C-reactive protein Azalea Knight GUILLOTINE TRIMMER - TRIP RIDER Work Phone: Start: 06-17-2019 Albumin serum plasma /whole blood Heather Forbes Work Phone: Start: 06-17-2019 Assay of magnesium Soumyaap woody Forbes Work Phone: Start: 06-17-2019 Assay of phosphorus inorganic Heather Forbes Work Phone: Start: 06-17-2019 Assay of urea nitrog en quantitative Heather Forbes Work Phone: Start: 06-17-2019 Blood count hemoglobin Heather Forbes Work Phone: Start: 06-17-2019 Calcium total Heather king Work Phone: Start: 06-17-2019 Electrolyte panel Soumyaapn a Andrei Work Phone: Start: 06-17-2019 Protein total xcpt refractometry urine Heather Andrei Work Phone: Start: 06-17-2019 Urinalysis microscop ic only Heatherwoody Forbes Work Phone: Start: 06-17-2019 Urnls dip stick/tabl et rgnt auto w/o microscopy Heather Andrei Work Phone: Start: 06-17-2019 C-reactive protein Dav Brownuregui Work Phone: Start: 06-17-2019 Sedimentation rate r bc automated Gosia Devan Work Phone: Start: 02-03-2019 MRI of cervical spin e without contrast External Transcribed Start: 10-03-2018 End: 10-03-2018 Microscopic examination of blood, culture Dav Hartman Comment on above: Performed By: #### B C #### Unless otherwise noted, all testing performed by [facility] [address] [place], [place] [address] CLIA: [id number] Stick Welder: Harshad Solano M.D. Start: 09-06-2018 End: 09-06-2018 LABS (OUTSIDE) Historical Provider Start: 08-31-2018 End: 08-31-2018 LABS (OUTSIDE) Historical Provider Start: 08-25-2018 IP CONSULT TO HOME C ARE NEEDS JV APPLE Start: 08-25-2018 Assay of magnesium SHOAIB JESUS ZECHARIAH Start: 08-25-2018 Basic metabolic pane l calcium total JV ZECHARIAH Start: 08-25-2018 Blood count complete auto&auto difrntl wbc JV APPLE Start: 08-25-2018 Procalcitonin (pct) WAS MARISABEL ZECHARIAH Start: 08-25-2018 DISCHARGE PATIENT WASSAMIR Sales APPLE Start: 08-25-2018 PULSE OXIMETRY, CONTINUOUS JV [...] JVMARISABEL APPLE Start: 08-25-2018 Assay of magnesium SHOAIB [...] JV APPLE Start: 08-24-2018 INCENTIVE SPIROMETRY RT JVMARISABEL APPLE Start: 08-24-2018 INITIATE OXYGEN THER APY [...] Start: 08-24-2018 FLUORO FOR SURGICAL PROCEDURES JV CASASAN Start: 08-23-2018 ANAEROBIC AND AEROBI C CULTURE JV APPLE Start: 08-23-2018 PULSE OXIMETRY, CONTINUOUS JV APPLE Start: 08-23-2018 PULSE OXIMETRY, CONTINUOUS JV CASASAN Start: 08-23-2018 PULSE OXIMETRY, CONTINUOUS [...] JV APPLE Start: 08-21-2018 Assay of magnesium WASE EDIN APPLE Start: 08-21-2018 Blood count complete auto&auto [...] 08-16-2018 IP CONSULT TO IV TEAM W MTICHEL APPLE Start: 08-16-2018 Assay of magnesium SHOAIB [...] PULSE OXIMETRY, CONTINUOUS JVMARISABEL APPLE Start: 08-15-2018 INITIATE RT PROTOCOL BRITTA APPLE Start: 08-15-2018 LEGIONELLA ANTIGEN, URINE JVMARISABEL APPLE Start: 08-15-2018 STREP PNEUMONIAE ANTIGEN JV APPLE Start: 08-15-2018 IP CONSULT TO NEUROLOGY JV APPLE Start: 08-15-2018 Assay of lactate JV APPLE Start: 08-15-2018 Culture bacterial bl ood aerobic w/id isolates JV APPLE Start: 08-15-2018 CULTURE BLOOD #1 JV APPLE Start: 08-15-2018 MYCOPLASMA PNEUMONIA E ANTIBODY, IGM JV CASASAN Start: 08-15-2018 Procalcitonin (pct) WAS MARISABEL APPLE Start: 08-15-2018 Troponin I.cardiac m ass conc JV APPLE Start: 08-15-2018 BATHROOM PRIVILEGES WITH ASSISTANCE JV APPLE Start: 08-15-2018 TELEMETRY MONITORING BRITTA APPLE Start: 08-15-2018 Cul bact xcpt urine blood/stool aerobic isol JVMARISABEL APPLE Start: 08-15-2018 ENCOURAGE DEEP BREAT KIERRA AND COUGHING JV CASASAN Start: 08-15-2018 FULL CODE JV CASASBrock Carreon Start: 08-15-2018 INCENTIVE SPIROMETRY RT JV APPLE Start: 08-15-2018 INITIATE OXYGEN THER APY PROTOCOL JV ZECHARIAH Start: 08-15-2018 INTAKE AND OUTPUT WASSAMIR Dieudonne CASASAN Start: 08-15-2018 IP CONSULT TO INFECT IOUS DISEASES JV APPLE Start: 08-15-2018 Microscopic observat ion Gram stain Nom (Unsp spec) JV CASASAN Start: 08-15-2018 NOTIFY PHYSICIAN (SPECIFY) JV ZECHARIAH Start: 08-15-2018 PHARMACY TO DOSE VANCOMYCIN JV ZECHARIAH Start: 08-15-2018 PLACE INTERMITTENT PNEUMATIC COMPRESSION DEVICE JV APPLE Start: 08-15-2018 PULSE OXIMETRY, CONTINUOUS JV APPLE Start: 08-15-2018 VITAL SIGNS JV EDWARD Carreon Start: 08-15-2018 PATIENT STATUS (DIRECT) JV APPLE Start: 12-09-2017 Colonoscopy Felipe Adam MD Work Phone: Start: 03-20-2017 Microscopic observat ion [Identifier] in Cervix by Cyto stain Tiffanie Casas Plan of Treatment Date Care Activity Detail Author Start: 04-14-2030 Lipid panel Lipids [employer] Start: 11-14-2029 Lipid panel Lipids [facility] [employer] Start: 2029 Shingles Vaccine (1 of 2) Shingles Vaccine (1 of 2) Marley Spoon- [place], [place] Start: 05-02-[address]29 [address] [facility] [employer] Start: 12-10-2027 Screening for malignant neoplasm of colon [facility] [employer] Start: 04-12-2027 Lipid panel Lipids [facility] [employer] Start: 02-15-2027 Screening for malignant neoplasm of breast Breast cancer screen [facility] [employer] Start: 06-12-2026 GFR test (Diabetes, CKD 3-4, OR last GFR 15-59) GFR test (Diabetes, CKD 3-4, OR last GFR 15-59) [facility] Start: 05-15-2026 GFR test (Diabetes, CKD 3-4, OR last GFR 15-59) GFR test (Diabetes, CKD 3-4, OR last GFR 15-59) [facility] [employer] Start: 05-14-2026 Lipid panel Marley Spoon Start: 04-14-2026 GFR test (Diabetes, CKD 3-4, OR last GFR 15-59) GFR test (Diabetes, CKD 3-4, OR last GFR 15-59) [employer] [employer] Start: 04-14-2026 Hemoglobin A1c measurement A1C test (Diabetic or Prediabetic) [employer] Start: 04-11-2026 GFR test (Diabetes, CKD 3-4, OR last GFR 15-59) GFR test (Diabetes, CKD 3-4, OR last GFR 15-59) [employer] Start: 11-15-2025 Depression Monitoring Depression Monitoring [facility] [employer] Start: 11-14-2025 GFR test (Diabetes, CKD 3-4, OR last GFR 15-59) GFR test (Diabetes, CKD 3-4, OR last GFR 15-59) [employer] Start: 11-14-2025 Hemoglobin A1c measurement A1C test (Diabetic or Prediabetic) Sid [facility] Start: 10-12-2025 End: 10-12-2025 Patient encounter procedure 10/12/2025 10:30 AM EST Office Visit [facility] [address] [facility] [place] [address] Sherman Adair MD [address] [place] [phone] [facility] Start: 10-11-2025 End: 10-11-2026 US Head and neck soft tissue US Soft Tissue Neck Imaging Routine Thyroid nodule Expected: 10/11/2025, Expires: 10/11/2026 [facility] Work Phone: Comment on above: Expected: 10/11/2025, Expires: Start: 08-23-2025 End: 08-23-2025 Patient encounter procedure 08/23/2025 1:00 PM EST Office Visit [facility] [address] [place] [address] [place] [phone] Jennie Van, GUILLOTINE [facility] [address] [facility] [place] [address] [facility] Start: 07-27-2025 End: 07-27-2025 Patient encounter procedure 07/27/2025 11:00 AM EDT Office Visit [facility] [address] [place] [address] Felipe Adam MD [address] [place] [address] Return in about 3 months (around 07/19/2025). [facility] Comment on above: Return in about 3 months (around 025). Start: 06-05-2025 COVID-19 Vaccine () COVID-19 Vaccine ( season) Sid Peter [facility] Start: 05-31-2025 End: 05-24-2026 XR Cervical spine 4 or 5 Views XR cervical spine complete 4 to 5 views Imaging Routine Cervical paraspinal muscle spasm Expected: 05/31/2025, Expires: 05/24/2026 [facility] Work Phone: Comment on above: Expected: 05/31/2025, Expires: Start: 05-25-2025 Lipid panel Lipid screen [facility]- [place], [place] Start: 05-24-2025 End: 05-24-2025 Patient encounter procedure 05/24/2025 11:30 AM EDT [facility] [address] [facility] [address] [place] [phone] Jennie Van, GUILLOTINE TRIMMER-TRIP RIDER [address] [facility] [place] [address] [facility] Start: 05-17-2025 End: 05-17-2025 Patient encounter procedure 05/17/2025 1:20 PM EDT [facility] [address] [facility] [address] [place] [address] Tiffanie Casas MD [address] [facility] [address] [address] [facility] Start: 05-15-2025 End: 05-15-2025 Patient encounter procedure 05/15/2025 1:15 PM EDT Office Visit [facility] [address] [place] [phone] Felipe Adam MD [address] [place] [address] Return in about 6 months (around 05/15/2025). [facility] Comment on above: Return in about 6 months (around 05/15/20). Start: 05-10-2025 GFR test (Diabetes, CKD 3-4, OR last GFR 15-59) GFR test (Diabetes, CKD 3-4, OR last GFR 15-59) [facility] Start: 05-05-2025 Influenza vaccination [facility] Start: 05-02-2025 Hemoglobin A1c measurement A1C test (Diabetic or Prediabetic) [facility] Start: 05-02-2025 End: 05-02-2025 Patient encounter procedure 05/02/2025 2:00 PM EDT Office Visit [facility] B [address] [facility] [address] [place] [address] Fozia Meng, VP [employer] [address] , [facility] [address] [place] [address] [facility] Start: 05-01-2025 End: 05-01-2025 Patient encounter procedure 05/01/2025 4:00 PM EDT Office Visit [facility] [address] [place] [address] Robbin Sánchez, DPM [address] [place] [phone] [facility] Start: 04-20-2025 End: 04-20-2025 Patient encounter procedure 04/20/2025 12:45 PM EDT Office Visit [facility] [address] [place] [address] Robbin Sánchez, DPM [address] [place] [address] Arrived [facility] Comment on above: Arrived Start: 04-06-2025 End: 04-06-2025 Patient encounter procedure 04/06/2025 4:30 PM EDT Office Visit [facility] [address] [place] [address] Robbin Sánchez, DPM [address] [place] [address] Arrived [facility] Comment on above: Arrived Start: 04-06-2025 End: 04-06-2026 Creatinine [Mass/volume] in Serum or Plasma Creatinine, Serum Lab Routine Right foot pain Expected: 04/06/2025 (Approximate), Expires: 04/06/2026 [facility] Comment on above: Expected: 04/06/2025 (Approximate), Expi res: 04/06/2026 Start: 04-06-2025 End: 04-06-2026 MR Foot - right WO and W contrast IV MR foot right w and wo IV contrast Imaging STAT Right foot pain Expected: 04/06/2025, Expires: 04/06/2026 [facility] Work Phone: Comment on above: Expected: 04/06/2025, Expires: Start: 03-14-2025 End: 03-14-2025 Patient encounter procedure [facility] Start: 02-13-2025 End: 02-13-2025 Patient encounter procedure 02/13/2025 1:00 PM EDT Office Visit [facility] [address] [address] Tiffanie Casas MD [address] [facility] [address] [address] [facility] Start: 01-27-2025 Depression Monitoring Depression Monitoring [facility] Start: 11-15-2024 End: 11-15-2024 Patient encounter procedure 11/15/2024 2:45 PM EST Office Visit [facility] [address] [place] [phone] Felipe Adam MD [address] [place] [address] 6 mo [facility] Comment on above: 6 mo Start: 11-14-2024 End: 11-14-2024 Patient encounter procedure [facility] Comment on above: Arrived Start: 11-11-2024 End: 11-11-2024 Patient encounter procedure 11/11/2024 1:00 PM EST Office Visit [facility] [address] [place] [address] Felipe Adam MD [address] [place] [address] 6 mo [facility] Comment on above: 6 mo Start: 09-24-2024 Screening for malignant neoplasm of cervix [facility] Start: 09-14-2024 End: 09-14-2024 Patient encounter procedure 09/14/2024 11:20 AM EST Office Visit [facility] [address] [facility] [address] [place] [phone] Fozia Meng VP [employer] [address] [phone] Arrived [facility] Comment on above: Arrived Start: 09-08-2024 DTaP/Tdap/Td vaccine (2 - Td or Tdap) DTaP/Tdap/Td vaccine (2 - Td or Tdap) [facility] Start: 09-08-2024 DTaP/Tdap/Td vaccine (2 - Td) DTaP/Tdap/Td vaccine (2 - Td) [place] Start: 09-08-2024 Tetanus vaccination [facility] Start: 09-05-2024 End: 09-05-2024 Patient encounter procedure 09/05/2024 1:00 PM EST Office Visit [facility] [address] [facility] [address] [place] [phone] Tiffanie Casas MD [address] [facility] [address], [place] [phone] [facility] Start: 08-18-2024 End: 08-18-2024 Patient encounter procedure 08/18/2024 1:30 PM EST Office Visit [facility] [address] [facility] 2nd [place] [address] Luis Mclean, PA-C [address] [facility] [address] [place], [place] [phone] 1 yr med chk [facility] Comment on above: 1 yr med k Start: 08-02-2024 End: 08-02-2024 Patient encounter procedure 08/02/2024 10:45 AM EDT Office Visit [facility] [address] [place] [phone] Cheryl Miles DO [address] [place] [address] [facility] Start: 07-11-2024 End: 07-11-2024 Telemedicine consultation with patient 07/11/2024 11:30 AM EDT Telemedicine [facility] [address] [facility] [address] [place] [address] Janel Allen, VP [employer] [address] [facility] [address] [place] [address] [facility] [address] Start: 06-10-2024 End: 06-10-2024 Patient encounter procedure 06/10/2024 10:20 AM EDT Office Visit [facility] [address] [facility] [address] [place] [phone] Tiffanie Casas MD [address] [place] [address] Arrived [facility] Comment on above: Arrived Start: 06-05-2024 COVID-19 Vaccine ( season) COVID-19 Vaccine ( season) Sid [facility] Start: 06-05-2024 COVID-19 Vaccine ( season) COVID-19 Vaccine ( season) [facility] Start: 06-05-2024 Influenza vaccination Influenza Vaccine (#1) [facility] Start: 2024 Screening for malignant neoplasm of colon [facility] Start: 05-17-2024 GFR test (Diabetes, CKD 3-4, OR last GFR 15-59) GFR test (Diabetes, CKD 3-4, OR last GFR 15-59) [facility] Start: 05-14-2024 Diabetes screen Diabetes screen [facility] Start: 05-12-2024 End: 05-12-2024 Patient encounter procedure 05/12/2024 11:00 AM EDT Office Visit [facility] PUL Part of [address] [address] Lina Echols MD [facility] [place] [address] BUCK (obstructive sleep apnea) [facility] P[facility] Part of [facility] Comment on above: BUCK (obstructive sleep apnea) Start: 05-11-2024 Lipid panel Lipid screen [place] Start: 05-11-2024 Lipid screen Lipid screen [place] Start: 05-05-2024 Influenza vaccination Flu vaccine (#1) [facility] Start: 03-23-2024 Depression Monitoring Depression Monitoring [facility] Start: 02-06-2024 GFR test (Diabetes, CKD 3-4, OR last GFR 15-59) GFR test (Diabetes, CKD 3-4, OR last GFR 15-59) [facility] Start: 02-06-2024 Hemoglobin A1c measurement A1C test (Diabetic or Prediabetic) [facility] Start: 08-13-2023 End: 08-13-2023 Patient encounter procedure [facility] Start: 06-22-2023 End: 06-22-2023 Patient encounter procedure 06/22/2023 11:15 AM EDT Office Visit [address] [address] Felipe Adam MD [address] [place] [address] [facility] Start: 06-05-2023 Influenza vaccination Sequential Influenza Vaccine (Season Ended) [facility] Start: 05-05-2023 Influenza vaccination [facility] Start: 04-14-2023 End: 04-14-2023 Patient encounter procedure 04/14/2023 Office Visit Family Medicine Felipe Adam MD [address] [place] [address] [facility] Start: 04-12-2023 Hemoglobin A1c measurement A1C test (Diabetic or Prediabetic) [facility] Start: 04-11-2023 Depression Monitoring Depression Monitoring [facility] Start: 04-11-2023 History and physical examination, annual for health maintenance Wellness Visit [facility] Start: 12-25-2022 End: 12-25-2022 Patient encounter procedure 12/25/2022 Office Visit Infectious Diseases Dav Hartman MD [address] [address] [facility]. Start: 09-24-2022 Diabetes screen Diabetes screen [place] Start: 08-07-2022 End: 08-07-2022 Patient encounter procedure 08/07/2022 Office Visit Urology Luis Mclean, PA-C 27 [facility] [address] [address] [facility] Start: 07-15-2022 End: 07-15-2022 Nursing evaluation of patient and report 07/15/2022 Nurse Only Family Medicine [facility] Start: 07-09-2022 End: 07-09-2022 Patient encounter procedure 07/09/2022 Appointment IP Unit Samantha Lino, RD, LD [facility] Start: 06-05-2022 Influenza vaccination [facility] Start: 05-20-2022 Creatinine measurement [facility] Start: 05-20-2022 Potassium [Moles/volume] in Serum or Plasma Potassium Marley Spoon Start: 05-20-2022 Potassium monitoring Potassium monitoring [facility] [employer] Start: 05-14-2022 Creatinine measurement Creatinine monitoring [facility] [employer] Work Phone: Start: 05-14-2022 Potassium monitoring Potassium monitoring [facility] Work Phone: Start: 05-05-2022 Influenza vaccination Flu vaccine (#1) [facility] Start: 03-20-2022 Screening for malignant neoplasm of cervix [facility] Start: 02-05-2022 End: 02-05-2022 Patient encounter procedure 02/05/2022 Appointment Physical Therapy Christel Donohue PT [facility] Start: 02-03-2022 End: 02-03-2022 Patient encounter procedure [facility] Start: 01-30-2022 End: 01-30-2022 Patient encounter procedure Marley Spoon [facility] Start: 01-29-2022 End: 01-29-2022 Patient encounter procedure 01/29/2022 Appointment Physical Therapy Beverly Rangel COMPOTYPE OPERATOR [facility] Start: 01-27-2022 End: 01-27-2022 Patient encounter procedure 01/27/2022 Appointment Physical Therapy Christel Donohue PT [facility] Start: 01-24-2022 End: 01-24-2022 Patient encounter procedure 01/24/2022 Appointment Physical Therapy Vanessa Garcia PT [facility] Start: 01-22-2022 End: 01-22-2022 Patient encounter procedure 01/22/2022 Appointment Physical Therapy Beverly Rangel COMPOTYPE OPERATOR [facility] Start: 01-17-2022 End: 01-17-2022 Patient encounter procedure 01/17/2022 Appointment Physical Therapy Beverly Rangel COMPOTYPE OPERATOR [facility] Start: 01-10-2022 End: 01-10-2022 Patient encounter procedure 01/10/2022 Appointment Physical Therapy Christel Donohue PT [facility] Start: 01-08-2022 End: 01-08-2022 Patient encounter procedure 01/08/2022 Appointment Physical Therapy Beverly Rangel PTA [facility] Start: 01-02-2022 End: 01-02-2022 Patient encounter procedure 01/02/2022 Appointment Occupational Therapy Judi Marie OTA [address] [place] [address] [facility] Start: 12-31-2021 Diabetes screen Diabetes screen [facility] [place], Start: 12-31-2021 End: 12-31-2021 Patient encounter procedure [facility] Start: 12-30-2021 End: 12-30-2021 Patient encounter procedure 12/30/2021 Appointment Occupational Therapy Cheryl Herman OT [facility] Start: 12-27-2021 End: 12-27-2021 Patient encounter procedure 12/27/2021 Appointment Occupational Therapy Eve Gaspar OTA [facility] Start: 11-14-2021 End: 11-14-2021 Patient encounter procedure 11/14/2021 Office Visit Family Medicine Felipe Adam MD [address] [place] [address] [phone] [facility] Start: 10-29-2021 Depression Monitoring Depression Monitoring Marley Spoon Start: 09-16-2021 Creatinine measurement Creatinine monitoring [employer] Phone: Start: 09-16-2021 Potassium monitoring Potassium monitoring [employer] Phone: Start: 08-01-2021 End: 08-01-2021 Patient encounter procedure 08/01/2021 Office Visit Urology Lita Weeks MD [address] [facility], [address] [place], [place] [phone] Marley Spoon [facility] Start: 06-05-2021 Influenza vaccination Marley Spoon Start: 05-25-2021 Creatinine measurement Creatinine monitoring [facility] [place] [place] Start: 05-25-2021 HbA1c (Bld) [Mass fraction] A1C test (Diabetic or Prediabetic) [facility] [place], Start: 05-25-2021 Hemoglobin A1c measurement A1C test (Diabetic or Prediabetic) [employer] Phone: Start: 05-25-2021 Potassium monitoring Potassium monitoring [place] Start: 11-13-2020 End: 11-13-2020 Office Visit 11/13/2020 Office Visit Family Medicine BackFelipe MD [address] [place] [address] [phone] [facility] Start: 11-02-2020 Potassium monitoring Potassium monitoring [place] Start: 10-23-2020 End: 10-23-2020 Office Visit 10/23/2020 Office Visit Infectious Diseases Dav Hartman MD [address] [facility]. [address] [place] [phone] [facility] Start: 09-24-2020 HbA1c (Bld) [Mass fraction] A1C test (Diabetic or Prediabetic) [place] Start: 06-17-2020 Creatinine measurement Creatinine monitoring [facility] [place] Start: 06-17-2020 Creatinine monitoring Creatinine monitoring [place] Start: 06-17-2020 Potassium monitoring Potassium monitoring [place] Start: 06-12-2020 End: 06-12-2020 Office Visit 06/12/2020 Office Visit Infectious Diseases Dav Hartman MD [address] [facility]. [address] [place] [address] [phone] [facility] Start: 06-05-2020 Influenza vaccination Flu vaccine (#1) [place] Start: 03-20-2020 Cervical cancer screen Cervical cancer screen [place] Start: 03-20-2020 Screening for malignant neoplasm of cervix [facility] Start: 11-01-2019 End: 11-01-2019 Office Visit 11/01/2019 Office Visit Infectious Diseases Dav Hartman MD [address] [facility]. [address] [place] [address] [phone] [facility] Start: 07-28-2019 End: 07-28-2019 Office Visit 07/28/2019 Office Visit Infectious Diseases Dav Hartman MD [address] [facility]. [address] [place] [address] [phone] [facility] Start: 06-27-2019 End: 06-27-2019 Nurse Only 06/27/2019 Nurse Only Family Medicine [facility] Start: 06-05-2019 Influenza vaccination Flu vaccine (#1) [place] Start: 06-05-2019 Influenza vaccination given SEQUENTIAL INFLUENZA VACCINE (Season Ended) [facility] Start: 2019 Screening for malignant neoplasm of breast [facility] Start: 06-05-2018 Influenza vaccination INFLUENZA VACCINE (#1) [facility] Work Phone: Start: 03-23-2018 End: 03-23-2018 Ambulatory [facility] Start: 2009 Screening for malignant neoplasm of cervix HPV (without or with Pap) [facility] Start: 2000 Screening for malignant neoplasm of cervix PAP SMEAR DISCUSSION [facility] Work Phone: Start: 1998 Hepatitis B vaccine (1 of 3 - 19+ 3-dose series) Hepatitis B vaccine (1 of 3 - 19+ 3-dose series) [facility] Start: 1998 Third diphtheria, tetanus and acellular pertussis (DTaP) vaccination TDAP (ADULT) [facility] Work Phone: Start: 1997 Hepatitis C screening Hepatitis C Screening [facility] Start: 1997 Tetanus vaccination TETANUS [facility] Work Phone: Start: 1995 COVID-19 Vaccine (1) COVID-19 Vaccine (1) [facility] Work Phone: Start: 1994 HIV screen HIV screen [place], [place] Start: 1994 HIV screening HIV screen [facility] Start: 1992 HIV screening HIV SCREENING DISCUSSION [facility] Work Phone: Start: 1991 COVID-19 Vaccine (1) COVID-19 Vaccine (1) [employer] Phone: Start: 1991 Depression Monitoring Depression Monitoring Marley Spoon Start: 1991 Depression screening using PHQ-9 (Patient Health Questionnaire 9) score [facility] Start: 1989 Urine screening for protein Urine Microalbumin [facility] Start: 1985 Pneumococcal Vaccine: Ped or At-Risk (1 - PCV) Pneumococcal Vaccine: Ped or At-Risk (1 - PCV) [facility] Start: 1984 COVID-19 Vaccine (1) COVID-19 Vaccine (1) [facility] Sp[facility] Start: 1982 History and physical examination, annual for health maintenance Wellness Visit [facility] Start: 1979 COVID-19 Vaccine (#1) COVID-19 Vaccine (#1) [facility] [employer] Start: 1979 Hepatitis B vaccine (1 of 3 - 3-dose series) Hepatitis B vaccine (1 of 3 - 3-dose series) [facility] [employer] Start: 1979 Screening for malignant neoplasm of colon [facility] End: 02-13-2021 COVID-19 COVID-19 Lab Routine Suspected COVID-19 virus infection 1 Occurrences starting 02/13/2021 until 02/13/2021 [employer] Phone: Comment on above: 1 Occurrences starting 02/13/2021 until 02/13/2021 COVID-19 COVID-19 Lab Rou luis Suspected COVID-19 virus infection 02/13/2021 3:06 PM EDT [employer] Phone: End: 08-08-2020 COVID-19 Ambulatory COVID-19 Ambulatory Lab Routine SOB (shortness of breath) 1 Occurrences starting 08/08/2020 until 08/08/2020 [facility] [place] Comment on above: 1 Occurrences starting 08/08/2020 until 08/08/2020 COVID-19 Ambulatory COVID-19 Amb ulatory Lab Routine SOB (shortness of breath) 08/08/2020 4:02 PM EST [employer] [place], [place] End: 05-20-2021 Creatinine [Mass/volume] in Urine Creatinine, Random Urine Lab Routine Once for 1 Occurrences starting 05/20/2021 until 05/20/2021 [employer] Phone: Comment on above: Once for 1 Occurrences starting 05/20/20 21 until 05/20/2021 Creatinine [Mass/vol ume] in Urine Creatinine, Random Urine Lab Routine 05/20/2021 7:57 PM EDT [employer] Phone: End: 04-13-2021 Culture, Urine Culture, Urine Microbiology Routine Acute cystitis with hematuria 1 Occurrences starting 04/13/2021 until 04/13/2021 [employer] Phone: Comment on above: 1 Occurrences starting 04/13/2021 until 04/13/2021 Culture, Urine [employer] Phone: End: 05-27-2021 Culture, Urine Culture, Urine Microbiology Routine Difficult or painful urination 1 Occurrences starting 05/27/2021 until 05/27/2021 [employer] Phone: Comment on above: 1 Occurrences starting 05/27/2021 until 05/27/2021 End: 06-11-2021 Culture, Urine Culture, Urine Microbiology Routine Acute cystitis with hematuria Recurrent UTI 1 Occurrences starting 06/11/2021 until 06/11/2021 [employer] Phone: Comment on above: 1 Occurrences starting 06/11/2021 until 06/11/2021 End: 07-11-2021 Culture, Urine Culture, Urine Microbiology Routine Frequent UTI Urinary urgency Urinary frequency 1 Occurrences starting 07/11/2021 until 07/11/2021 [employer] Phone: Comment on above: 1 Occurrences starting 07/11/2021 until 07/11/2021 End: 08-01-2021 Culture, Urine Culture, Urine Microbiology Routine Frequent UTI Urinary urgency Urinary frequency 1 Occurrences starting 08/01/2021 until 08/01/2021 [employer] Phone: Comment on above: 1 Occurrences starting 08/01/2021 until 08/01/2021 End: 04-28-2022 Culture, Urine Culture, Urine Microbiology Routine Acute cystitis with hematuria 1 Occurrences starting 04/28/2022 until 04/28/2022 [employer] Phone: Comment on above: 1 Occurrences starting 04/28/2022 until 04/28/2022 End: 02-05-2023 Culture, Urine [employer] Phone: Comment on above: 1 Occurrences starting 02/05/2023 until 02/05/2023 End: 04-04-2025 Culture, Wound (with Gram Stain) [facility] Comment on above: One Time for 1 Occurrences starting 10/2024 until 04/04/2025 End: 02-15-2025 DBT Breast - bilateral screening [facility] Comment on above: 1 Occurrences starting 02/15/2025 until 02/15/2025 End: 04-12-2022 Hemoglobin A1c/Hemoglobin.total in Blood [employer] Phone: Comment on above: 1 Occurrences starting 04/12/2022 until 04/12/2022 End: 02-05-2023 Hemoglobin A1c/Hemoglobin.total in Blood [employer] Phone: Comment on above: Once for 1 Occurrences starting 02/06/20 23 until 02/05/2023 End: 08-29-2019 Home Sleep Study Home Sleep Study Sleep Center Routine One Time for 1 Occurrences starting 08/29/2019 until 08/29/2019 [employer] [place] Comment on above: One Time for 1 Occurrences starting 08/06 until 08/29/2019 End: 09-24-2019 Methylmalonic Acid, Serum Methylmalonic Acid, Serum Lab Routine Once for 1 Occurrences starting 09/24/2019 until 09/24/2019 [employer] Phone: Comment on above: Once for 1 Occurrences starting 09/24/20 19 until 09/24/2019 Methylmalonic Acid, Serum Methyl malonic Acid, Serum Lab Routine 09/24/2019 9:33 AM [employer] Phone: End: 09-24-2019 Nuclear Ab [Titer] in Serum by Immunofluorescence ALICJA Lab Routine Once for 1 Occurrences starting 09/24/2019 until 09/24/2019 [employer] Phone: Comment on above: Once for 1 Occurrences starting 09/24/20 until 09/24/2019 Nuclear Ab [Titer] i n Serum by Immunofluorescence ALICJA Lab Routine 09/24/2019 9:33 AM [employer] Phone: End: 05-20-2021 Protein, urine, random Protein, urine, random Lab Routine Once for 1 Occurrences starting 05/20/2021 until 05/20/2021 [employer] Phone: Comment on above: Once for 1 Occurrences starting 05/20/20 until 05/20/2021 Protein, urine, random Protein, urine, random Lab Routine 05/20/2021 7:57 PM EDT [employer] Phone: End: 12-14-2019 Sedimentation Rate Sedimentation Rate Lab Routine MRSA (methicillin resistant Staphylococcus aureus) septicemia (HCC) 1 Occurrences starting 12/14/2019 until 12/14/2019 [place] Comment on above: 1 Occurrences starting 12/14/2019 until 12/14/2019 Sedimentation Rate Sedimentation Rate Lab Routine MRSA (methicillin resistant Staphylococcus aureus) septicemia (HCC) 12/14/2019 12:39 PM EDT [place] End: 09-24-2019 Sjogrens syndrome-A extractable nuclear antibody Sjogrens syndrome-A extractable nuclear antibody Lab Routine Once for 1 Occurrences starting 09/24/2019 until 09/24/2019 [employer] Phone: Comment on above: Once for 1 Occurrences starting 09/24/20 until 09/24/2019 Sjogrens syndrome-A extractable nuclear antibody Sjogrens syndrome-A extractable nuclear antibody Lab Routine 09/24/2019 9:33 AM [employer] Phone: End: 09-24-2019 Sjogrens syndrome-B extractable nuclear antibody Sjogrens syndrome-B extractable nuclear antibody Lab Routine Once for 1 Occurrences starting 09/24/2019 until 09/24/2019 [employer] Phone: Comment on above: Once for 1 Occurrences starting 09/24/20 until 09/24/2019 Sjogrens syndrome-B extractable nuclear antibody Sjogrens syndrome-B extractable nuclear antibody Lab Routine 09/24/2019 9:33 AM [employer] Phone: End: 09-12-2019 Sleep Study with PAP Titration Sleep Study with PAP Titration Sleep Center Routine One Time for 1 Occurrences starting 09/12/2019 until 09/12/2019 [employer] Phone: Comment on above: One Time for 1 Occurrences starting 06/2019 until 09/12/2019 End: 09-24-2019 Vitamin B6 Vitamin B6 Lab Routine Once for 1 Occurrences starting 09/24/2019 until 09/24/2019 [employer] Phone: Comment on above: Once for 1 Occurrences starting 09/24/20 until 09/24/2019 Vitamin B6 Vitamin B6 Lab R outine 09/24/2019 9:33 AM [employer] Phone: XR Cervical spine 4 or 5 Views XR cervical spine complete 4 to 5 views Imaging Routine Cervical paraspinal muscle spasm 05/24/2025 12:45 PM EDT [facility] Immunizations Immunization Date Immunization Notes Care Provider Yair dai 09-08-2014 tetanus toxoid, redu gaby diphtheria toxoid, and acellular pertussis vaccine, adsorbed [place] Payers Date Payer Category Payer Managed Care HMO (unspecified) [facility] HMO/CHOICE PLUS/DULCE/DULCE PLUS [id number] 2024 Private Health Insurance [id number]. [id number] 2024 Private Health Insurance [id number]. [id number] 2024 Self-pay [id number] [phone] [id number] 2017 Blue Cross Blue Shie ld (Indemnity or Managed Care) - Out of State BCBS OUT OF [place] [facility] [id number]. [id number] 2017 Unknown 2016 Unknown [id number] 2016 Unknown xxxxxxxxxxxxxxx 1.2.840.320869.1.13.239.2.7. [id number] 2014 Medicaid [id number] 2.16.840.1.678655.3.249.13 2014 Medicaid [employer] MEDICAID [employer] MEDICAID xxxxxxxxxxx 2014-Present xxxxxxxxxxx 1.2.840.613064.1.13.385.2.7. [id number] 1979 Unknown [id number] 2.16.840.1.536467.3.579.2.35 6 1979 Unknown [id number] 2.16.840.1.798097.3.579.2.35 6 1979 Unknown [id number] 2.16.840.1.747807.3.579.2.71 7 1979 Unknown [id number] 2.16.840.1.315232.3.579.2.71 7 1979 Unknown [id number] 2.16.840.1.817746.3.579.2.17 5 1979 Unknown [id number] 2.16.840.1.646667.3.579.2.90 3 1979 Unknown [id number] 2.16.840.1.827897.3.579.2.18 2 1979 Unknown [id number] 2.16.840.1.128732.3.579.2.18 5 1979 Unknown [id number] 2.16.840.1.817865.3.579.2.90 3 1979 Unknown [id number] 2.16.840.1.829025.3.579.2.59 3 1979 Unknown [id number] 2.16.840.1.584028.3.579.2.59 3 1979 Unknown [id number] 2.16.840.1.996095.3.579.2.59 3 1979 Unknown [id number] 2.16.840.1.351785.3.579.2.90 3 1979 Unknown [id number] 2.16.840.1.940978.3.579.2.90 3 1979 Unknown [id number] 2.16.840.1.844632.3.579.2.72 7 1979 Unknown [id number] 2.16.840.1.399618.3.579.2.12 59 1979 Unknown [id number] 2.16.840.1.378696.3.579.2.12 59 1979 Unknown [id number] 2.16.840.1.349797.3.579.2.12 59 1979 Unknown [id number] 2.16.840.1.816134.3.579.2.12 59 1979 Unknown [id number] 2.16.840.1.984201.3.579.2.12 59 1979 Unknown [id number] 2.16.840.1.077616.3.579.2.12 59 1979 Unknown [id number] 2.16.840.1.648816.3.579.2.12 59 1979 Unknown [id number] 2.16.840.1.481009.3.579.2.12 59 1979 Unknown [id number] 2.16.840.1.025107.3.579.2.12 59 1979 Unknown [id number] 2.16.840.1.229325.3.579.2.12 59 1979 Unknown [id number] 2.16.840.1.418538.3.579.2.12 59 1979 Unknown [id number] 2.16.840.1.340862.3.579.2.17 4 1979 Unknown [id number] 2.16.840.1.568707.3.579.2.17 4 1979 Unknown [id number] 2.16.840.1.496479.3.579.2.17 4 1979 Unknown [id number] 2.16.840.1.082619.3.579.2.17 4 1979 Unknown [id number] 2.16.840.1.834577.3.579.2.17 4 1979 Unknown [id number] 2.16.840.1.338345.3.579.2.17 4 1979 Unknown [id number] 2.16.840.1.172826.3.579.2.17 4 1979 Unknown [id number] 2.16.840.1.653171.3.579.2.17 4 1959 Unknown [id number] 1.2.840.652179.1.13.239.2.7. 3.156158.315 Unknown 114 Unknown [id number] 2.16.840.1.707794.3.579.2.53 1 Social History Date Type Detail Facility Start: 05-01-2015 End: 08-13-2023 Tobacco smoking status NHIS Never smoker [facility] Work Phone: Start: 1980 Sex Assigned At Not on file [facility] Work Phone: Start: 05-27-2019 End: 11-15-2024 Alcohol intake No [place] Start: 12-13-2019 End: 04-18-2025 Alcohol intake Current non-drinker of alcohol (finding) [place] Start: 12-09-2019 End: 05-13-2021 History SDOH Financial 4 [place] Start: 12-09-2019 End: 05-20-2022 History SDOH Food Worry 1 [place], [place] Start: 12-09-2019 History SDOH Transpo rt Med 2 [place] Start: 05-11-2020 End: 08-13-2023 Tobacco use and exposure Never used [place] Start: 10-30-2021 End: 03-02-2023 Exposure to SARS-CoV-2 (event) Not sure [place] Start: 1980 Sex Assigned At Female F [facility] Start: 05-20-2022 History SDOH Financial 3 [facility] Work Phone: Start: 01-06-2023 End: 11-15-2024 History of Social function [facility] How hard is it for y ou to pay for the very basics like food, housing, medical care, and heating Not very hard [employer] Patient Health Questionnaire 9 item (PHQ-9) total score [Reported] 0 [employer] (I/We) worried wheth er (my/our) food would run out before (I/we) got money to buy more. Never true [employer] At any time in the p ast 12 months, were you homeless or living in intermediate [including now]? No [employer] Start: 10-09-2020 Gender identity Identifies as female gender (finding) [employer] Start: 10-09-2020 Sexual orientation Heterosexual (fin artur) [facility] How hard is it for y ou to pay for the very basics like food, housing, medical care, and heating Somewhat hard [employer] Start: 06-10-2024 End: 04-06-2025 Alcoholic beverage intake Lifetime non-drinker (finding) [facility] Start: 08-19-2023 Alcohol Comment Caffeine Intak e: Yes, pop [facility] Start: 11-14-2012 Sex Female (finding) [facility] How often to you hav e a drink containing alcohol? Never [facility] Start: 04-20-2025 End: 05-24-2025 Alcoholic beverage intake Ex-drinker (finding) [facility] Start: 04-20-2025 Alcohol Comment 1-2 times a year [facility] NEGATED: Highlighted rowStart: NINF History of tobacco use Passive smoker [facility] Functional Status Date Assessment Result [facility] [place] [facility] Clinical Notes 12-23-2021 to 05-24-2025 Jennie Van APRN-GRETEL - 05/24/2025 11:30 AM EDTTelephone Encounter - [...] reflexes: Goyo's absent. Ankle clonus absent. Coordination Npxory-mp-tusw, rapid alternating movements and qkwb-su-mhfu normal bilaterally without dysmetria. Gait Casual gait: [...] current management plan documented in this encounter [facility] 05-23-2025 Telephone encount er Note Patient same day canceled due to her foot being in a boot and cannot drive by herself. [facility] 05-23-2025 Miscellaneous Notes Formattin g of this note might be different from the original. Patient same day canceled due to her foot being in a boot and cannot drive by herself. documented in this encounter [facility] 04-20-2025 History of Presen t illness [...] visit with xra documented in this encounter [facility] 04-14-2025 Evaluation note Diagnosis Chronic renal [...] stage 3a (HCC) documented in this encounter [facility]07-10-2025 Evaluation note* Diagnosis Chronic renal impairment, stage 3a (HCC)- Primary Depression with anxiety Dysthymic disorder Gastroesophageal reflux disease without esophagitis Esophageal reflux Vitamin D deficiency Unspecified vitamin D deficiency Mixed hyperlipidemia BUCK on CPAP Obstructive sleep apnea (adult) (pediatric) Restless legs Restless legs syndrome (RLS) Hyperglycemia Other abnormal glucose Pain in right foot Pain in limb documented in this encounter [facility]07-03-2025 History of Present illness Narrative* Robbin Sánchez DPM - 04/06/2025 4:30 PM EDT Celina Gaspar is a 44 y.o. female presents with chief complaint of Foot Ulcer (RT toe 2 ulcer) HPI: HPI Pt has ulcer on RT toe 2 for about 2 wks. [address] went to [facility] ER on 04-04-25, xrays, culture [...] Daily RT cholecalciferol (Vitamin D-3) 50 MCG (2000 UT) tablet Take by mouth diclofenac sodium [...] toe or midfoot but also Charcot MRI [facility] 04-11-25 11:30 AM, arrive at 11:00 AM. Pt notified. documented in this encounterMissouri Southern He[id number] Evaluation note* Diagnosis Chronic renal impairment, stage 3a (HCC)- Primary Depression with anxiety Dysthymic disorder Gastroesophageal reflux disease without esophagitis Esophageal reflux Vitamin D deficiency Unspecified vitamin D deficiency Mixed hyperlipidemia BUCK on CPAP Obstructive sleep apnea (adult) (pediatric) Restless legs Restless legs syndrome (RLS) Hyperglycemia Other abnormal glucose Pressure injury of deep tissue of toe, unspecified laterality- Primary documented in this encounter [facility]06-10-2025 History of Present illness Narrative* Lynn [...] in about 6 weeks (around 04/25/2025), or VP HR DIVERSITY. Lab Frequency Next Occurrence Therapeutic injection carpal tunnel Once 09/29/2024 History of Present Illness, Associated Treatments and Results - Dx BUCK . CLAUSTROPHOBIA . (PN . RLS) Tx OFF CPAP @ 12 (sertraline --psy/anxiety) (ropinirole --Augusto) Aes Hx Download - reviewed. Use - [...] vs 2.8, all supine; PLMI=3.6, PLMAI=0.6 (Sydnee, lamar) - MAINE=6.4, position not given PAPT ([facility] - AHI=1.8 @ 12 with REM; PLMI=0 [...] Lynn Block M.D. [facility] ? [address] ? [place], [place] [address] ? ? fax Neurology ? Clinical Neurophysiology ? Epilepsy ? Sleep Disorders ? Clinical Informatics documented in this encounterMissouri Southern HealthcareUyicxfekwh64-70-8224 Evaluation note* Diagnosis Chronic renal impairment, stage [...] Other screening mammogram documented in this encounter [facility]05[facility]20[facility] History of Present illness Narrative* Tiffanie [...] Daily RT cholecalciferol (Vitamin D-3) 50 MCG (2000 UT) [...] Depression: Not at risk (11/15/2024) Received from [facility] PHQ-2 PHQ-9 Total Score: 0 [...] reflexes: Goyo's absent. Ankle clonus absent. Coordination Peyurr-pj-ussa, rapid alternating movements and scel-gp-ugde normal bilaterally without dysmetria. Gait Normal casual, toe, heel and tandem gait. Romberg is absent. 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 She continues to have significant discomfort in her feet to interrupt her sleep. This is likely worsened by Blqnvlf-Gzfop-Detqp for which she had surgery in February [...] pillows. She will take this to [facility] in [place]. We will get the original sleep study from [facility] for review. She is following with Dr. Block for sleep medicine. EVALUATION: PSG 03/2024 - CPAP [id number] w/heated humidification EMG of BUE 11/25 showed [...] by Tiffanie Casas MD documented in this encounterMissouri Southern HealthcareTmypqjtmid65-04-2684 History of Present illness Narrative* Lynn Block [...] not included. Outpatient Progress Note Patient: Celina Penaerd Dept: Neurology : 1980 Appt Date: 12/06/2024 [...] OFF CPAP @ 12 since recall (ropinirole --Casas) Aes Hx Download - not received. Use [...] Out of bed 0800. Noct oxim PSG ([facility]) (BMI=39.1) - AHI=5.3, REM=21 vs 2.8, all supine; PLMI=3.6, PLMAI=0.6 (Sydnee, lamar) - MAINE=6.4, position not given PAPT ([place]ydnee/Angelina) [...] in all four extremities, including at least certified coding specialist, finger abductors, biceps, triceps, deltoid, toe flexors [...] Lynn Block M.D. [facility] ? [address] ? [place], [place] [address] ? ? fax Neurology ? Clinical Neurophysiology ? Epilepsy ? Sleep Disorders ? Clinical Informatics documented in this encounterMissouri Southern HealthcareUmkobfeqwj82-70-9672 Telephone encounter Note* Telephone Encounter - Janel Allen NP - 11/02/2024 9:16 PM EST Pharmacy sends medication clarification for nortriptyline as there are two directions on one received. Per ONUR Gunderson plan increase nortriptyline 50 mg 2 daily/bedtime total of 100 mg. [facility] [id number] Miscellaneous Notes* Telephone Encounter - Janel Allen NP - 11/02/2024 9:16 PM EST Pharmacy sends medication clarification for nortriptyline as there are two directions on one received. Per OUNR Gunderson plan increase nortriptyline 50 mg 2 daily/bedtime total of 100 mg. documented in this encounterMissouri Southern HealthcareCqmzndqpfn13-19-6089 NoteOPG [address]) [facility] [address] MEDICAL OFFICE [facility] [address] Dept: [phone] Loc: [phone] MD Celina Browne 44 y.o. female Patient [...] Resource Strain: Medium Risk (05/08/2024) Received from [facility] Overall Financial Resource Strain (CARDIA) Difficulty of Paying Living Expenses: Somewhat hard Food Insecurity: No Food Insecurity (05/08/2024) Received from [facility] Hunger Vital Sign Worried About Running Out of Food in the Last Year: Never true Ran Out of Food in the Last Year: Never true Transportation Needs: Unknown (05/08/2024) Received from [facility] PRAPARE - Transportation Lack of Transportation (Non-Medical): No Housing Stability: Unknown (05/08/2024) Received from [facility] Housing Stability Vital Sign Unstable Housing [...] of submandibular glands, clear salivary flow from [place]'s ducts, no stones of [place]'s ducts Temporomandibular Joint: no crepitus with motion, no tenderness on palpation, no mayo (more content not included)...[facility] [id number] History of Present illness Narrative* Sherman Adair MD - 10/11/2024 10:05 AM EST [facility] [address]) [facility] [address] [facility] MED[facility] OFF[facility] [address] Dept: [phone] Loc: [phone] MD Celina Browne Dieudonne Gaspar 44 y.o. female Patient presents with a [...] Resource Strain: Medium Risk (05/08/2024) Received from [facility] Overall Financial Resource Strain (CARDIA) Difficulty of Paying Living Expenses: Somewhat hard Food Insecurity: No Food Insecurity (05/08/2024) Received from [facility] Hunger Vital Sign Worried About Running Out of Food in the Last Year: Never true Ran Out of Food in the Last Year: Never true Transportation Needs: Unknown (05/08/2024) Received from [facility] PRAPARE - Transportation Lack of Transportation (Non-Medical): No Housing Stability: Unknown (05/08/2024) Received from [facility] Housing Stability Vital Sign Unstable Housing [...] subma ndibular glands, clear salivary flow from [place]'s ducts, no stones of Felipe's ducts Temporomandibular [...] Hematological: Negative. Psychiatric/Behavioral: Negative. documented in this [id number] Telephone encounter Note* Telephone Encounter - Gwen Fan - 09/14/2024 2:18 PM EST Voicemail Received: Our numbers [phone] actually have a question regarding a prescription that was prescribed today, If someone could please call me back. Thank you. Bye. [facility] [id number] Miscellaneous Notes* Telephone Encounter - Gwen Fan - 09/14/2024 2:18 PM EST Voicemail Received: Our numbers [phone] actually have a question regarding a prescription that was prescribed today, If someone could please call me back. Thank you. Mary Carmene. documented in this encounterMissouri Southern HealthcareVwaymirtsp34-67-1321 Miscellaneous Notes* Telephone Encounter - My Johnson - 08/11/2024 12:03 PM EST Patient called and requested refill of Lyrica to be sent to [facility] in [place]. documented in this [facility]11-07-2024 Telephone encounter Note* Telephone Encounter - My Alex - 08/11/2024 12:03 PM EST Patient called and requested refill of Lyrica to be sent to [facility] in [place]. [facility] [id number] History of Present illness Narrative* Tequila Obando [...] Grandfather Depression: At risk (01/28/2024) Received from [facility] PHQ-2 PHQ-9 Total Score: 6 [...] reflexes: Goyo's absent. Ankle clonus absent. Coordination Bqlfky-il-jxwd, rapid alternating movements and qxrr-ol-vbbl normal bilaterally without dysmetria. Gait Normal casual, [...] Follow up 3 months. documented in this encounterMissouri Southern [id number] History of Present illness Narrative* Cheryl Miles [...] was counseled on the risks of stroke, OR, and sudden with BUKC, along with the need for compliance with [...] to clinic: 3-6 months documented in this encounterMissouri Southern HealthcareSuzdyfzpcd17-58-1964 History of Present illness Narrative* MASSIMO Shook [...] 2022. Shefollows with an outside provider in [place] and was immobilized for an extended period [...] Foot & Ankle Surgery documented in this [id number] NotePROCEDURE: XR ANKLE LT MIN 3 V, [...] Electronically authenticated by: PIPER MERCEDES Date: 2023-01-29 07:05[facility]04-27-2023 NotePROCEDURE: XR ANKLE LT MIN 3 [...] Electronically authenticated by: PIPER MERCEDES Date: 2023-01-29 07:05[facility]10-05-2022 History of Present illness Narrative* Samantha [...] BMR: 1573 calories Est. total calorie needs: ~1395-6911 Lab Results Component Value Date/Time TRIG 460 [...] bread Supper: pork chop or chicken, homemade portuguese fries, mashed, or baked potato with broccoli [...] session duration: 55 minutes. documented in this encounterBON BANNERBoticca [facility] [employer] Work Phone: 1(713) 297-517805-04-2022 History of Present illness Narrative* Christel Donohue, PT - 02/05/2022 9:45 AM EDT [facility] Date: 02/05/2022 Patient Name: Celina Gaspar : 1980 Pt No Showed Appt- Follow up call, left message on voicemail that patient discharged, but to call if has questions or concerns. Christel Donohue, PT Date: 02/05/2022 documented in this [facility] Phone: 1(117) 441-567305-04-2022 Hospital course Narrative* Christel Donohue, PT - 02/05/2022 9:45 AM EDT Images from the original note were not included. [facility] Discharge Summary Patient: [...] Donohue, PT Date: 02/05/2022 documented in this [facility] Phone: 1(254) 599-347205-02-2022 History of Present illness Narrative* Jerica Melgar - 02/03/2022 10:30 AM EDT [facility] Date: 02/03/2022 Patient Name: Celina Gaspar : 1980 Pt Cancelled Appt due to no reason for cancel. Jerica Melgar Date: 02/03/2022 [facility] Work Phone: 1(185) 721-552304-27-2022 History of Present illness Narrative* Beverly Rangel, COMPOTYPE OPERATOR - 01/29/2022 9:00 AM EDT Images from the original note were not included. 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 : 10 Retirement Goals Time Frame for laborer hoisting goals : 10 laborer hoisting goal 1: Decrease pain low back 2/10 at worst x3 days for completing normal activities laborer hoisting goal 2: Patient to report 50% decrease in radicular symptoms L LE Post Treatment Pain: 4/10 Time In: 15:50 Time Out : 16:19 Timed Code Treatment Minutes: 34 Minutes Total Treatment Time: 34 Minutes Christel Donohue, PT Date: 01/27/2022 documented [facility] Phone: 1(309) 627-288104-22-2022 History of Present illness Narrative* Vanessa Garcia, PT - 01/24/2022 9:45 AM EDT Images from the original note were not included. [facility] Outpatient Physical Therapy Daily Note Date: [...] 4: Increase trunk ROM B rotation WFL Gravity Meter Operator Goals - Time Frame for [facility] goals : 10 Retirement Goals Time Frame for [facility] goals : 10 [facility] goal 1: Decrease pain low back 2/10 at worst x3 days for completing normal activities [facility] goal 2: Patient to report 50% decrease in radicular symptoms L LE Post Treatment Pain: 5/10 Time In: 0952 Time Out: 1030 Timed Code Treatment Minutes: 38 Minutes Total Treatment Time: 38 Minutes Vanessa Garcia, THERESE Date: 01/24/2022 documented [facility] this [facility] Phone: 1(319) 199-915504-20-2022 History of Present illness Narrative* Beverly Rangel, JENNIFER - 01/22/2022 4:45 PM EDT [facility] Date: 01/22/2022 Patient Name: Celina Gaspar : 1980 Patient did not show up for her appointment. Message left on answering machine with a reminder of her next appointment on Thursday. Beverly Rangel COMPOTYPE OPERATOR Date: 01/22/2022 documented in this [facility] Phone: [phone]) 614-916704-15-2022 History of Present illness Narrative* Beverly Rangel, COMPOTYPE OPERATOR - 01/17/2022 10:30 AM EDT Images from the original note were not included. [facility] Outpatient Physical Therapy Daily Note Date: 01/17/2022 Patient Name: Celina Gaspar : 1980 (41 y.o.) Referring Practitioner: Liliane Sawyer APRN, TRIP RIDER Referral Date : 12/19/21 Diagnosis: Lumbar radiculopathy Treatment Diagnosis: Back Pain Onset Date: 12/19/21 (Referral) PT Insurance Information: [employer]BS Total # of Visits Approved: 10 Per Physician Order Total # of Visits to Date: 5 Plan of Care/Certification Expiration Date: 02/07/22 Pre-Treatment Pain: 5/10 Assessment Assessment: Patient arrives with pain 10. 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 1: Decrease pain low back 2/10 at worst x3 days for completing normal activities laborer hoisting goal 2: Patient to report 50% decrease in radicular symptoms L LE Post Treatment Pain: 5/10 Time In: 1037 Time Out: 1107 Timed Code Treatment Minutes: 30 Minutes Total Treatment Time: 30 Minutes Beverly Rangel, COMPOTYPE OPERATOR Date: 01/17/2022 [facility] Phone: [phone]) [phone] History of Present illness Narrative* Eve Gaspar ISAIAH - 01/13/2022 3:15 PM EDT [facility] Date: 01/13/2022 Patient Name: Celina Gaspar : 1980 Pt Cancelled Appt due to no reason given. Eve HannaPRESTON lazcano/Matthew Date: 01/13/2022 documented in this [facility] Phone: [phone]) 208-375604-01-2022 History of Present illness Narrative* Beverly Brock Rangel, JENNIFER - 01/03/2022 9:45 AM EDT Images from the original note were not included. [facility] Outpatient Physical Therapy Daily Note Date: [...] 7 Assessment Assessment: Patient arrived reporting pain 04/13 with c/o icreased soreness post last session. [...] 4: Increase trunk ROM B rotation WFL Gravity Meter Operator Goals - Time Frame for [facility] goals : 10 [facility] goal 1: Decrease pain low back 2/10 at worst x3 days for completing normal activities [facility] goal 2: Patient to report 50% decrease in radicular symptoms L LE Post Treatment Pain: 5/10 Time In: 0948 Time Out: 1028 Timed Code Treatment Minutes: 40 Minutes Total Treatment Time: 40 Minutes Beverly Rangel, COMPOTYPE OPERATOR Date: 01/03/2022 documented [facility] this [facility] Phone: [phone]) 275-822903-29-2022 History of Present illness Narrative* Cheryl Herman, OT - 12/31/2021 9:30 AM EDT Images from the original note were not included. [facility] Outpatient Occupational Therapy Daily Note Date: [...] Time Frame for Short term goals: STG=LTG Retirement Goals Time Frame for laborer hoisting goals : 12 visits (01/24/2022) CH[facility] goal 1: pt to be indepenent in HEP-MET [facility] goal 2: Pt to demonstrate R wrist flexion to 65 degrees or more in order to engage in daily tasks-MET laborer hoisting goal 3: Pt to demonstrate R wrist extension to 60 degrees or more in order to engage in daily tasks-MET [facility] goal 4: Pt to be educated on carpal tunnel do's & dont's in order to prevent further repetitive injury to wrist-MET Timed Code Treatment Minutes: 30 Minutes Time In: 915 Time Out: 945 Timed Coded Minutes: 30 Total Treatment Time: 30 THERESA Houser, OTR/L Date: 12/31/2021 documented [facility] this [facility] Phone: [phone]) [phone] Hospital course Narrative* Cheryl Herman OT - 12/31/2021 9:30 AM EDT Images from the original note were not included. 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 Therapist provided pt with handout on Carpal Tunnel Dos & Dont's to avoid re-injury. 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 goal 3: Pt to demonstrate R wrist extension to 60 degrees or more in order to engage in daily tasks-MET laborer hoisting goal 4: Pt to be educated on carpal tunnel do's & dont's in order to prevent further repetitive injury to wrist-MET Reason for Discharge [] Poor Follow Through [] Completion of Prescribed Sessions [x] Optimal Function Achieved [] Patient Discharged Self [x] Goals Achieved Comments: Thank you for this referral THERESA Houser, OTR/L Date: 12/31/2021 documented in this [facility] Phone: [phone] 312-933703-29-2022 History of Present illness Narrative* Christel Donohue, PT - 12/31/2021 8:30 AM EDT Images from the original note were not included. [facility] Outpatient Physical Therapy Evaluation Date: 12/31/2021 Patient: Celina Gaspar : 1980 Referring Practitioner: Liliane Sawyer APRN, TRIP RIDER Referral Date : 12/19/21 Diagnosis: Lumbar radiculopathy [...] 4: Increase trunk ROM B rotation WFL laborer hoisting goals Time Frame for [facility] goals : 10 [facility] goal 1: Decrease pain low back 2/10 at worst x3 days for completing normal activities laborer hoisting goal 2: Patient to report 50% decrease in radicular symptoms L LE Patient's Goal: Decrease back pain to complete normal activities Timed Code Treatment Minutes: 15 Minutes Total Treatment Time: 45 Time In: 8:30 Time Out: 9:15 Christel Donohue, PT Date: 12/31/2021 documented [facility] this [facility] Phone: [phone]) [phone] History of Present illness Narrative* Cheryl Herman, OT - 12/30/2021 8:30 AM EDT Images from the original note were not included. [facility] Outpatient Occupational Therapy Daily Note Date: [...] Time Frame for Short term goals: STG=LTG Retirement Goals Time Frame for [facility] goals : 12 visits (01/24/2022) [facility] goal 1: pt to be indepenent in HEP-MET laborer hoisting goal 2: Pt to demonstrate R wrist flexion to 65 degrees or more in order to engage in daily tasks-MET [facility] goal 3: Pt to demonstrate R wrist extension to 60 degrees or more in order to engage in daily tasks-MET [facility] goal 4: Pt to be educated on carpal tunnel do's & dont's in order to prevent further repetitive injury to wrist-MET Time In: 835 Time Out: 915 Timed Coded Minutes: 40 Total Treatment Time: 40 THERESA Houser, OTR/L Date: 12/30/2021 documented in this [facility] [employer] Work Phone: [phone]) 425-836503-21-2022 History of Present illness Narrative* Cheryl Herman OT - 12/23/2021 8:30 AM EDT Images from the original note were not included. [facility] Outpatient Occupational Therapy Evaluation Date: 12/23/2021 [...] completing these mvmts Left Hand Strength - Field Kiln Burner (lbs) Handle Setting 2: 54#, 50#, 53# (52.3# ave) Left Hand Strength - Pinch (lbs) Lateral: 13.5# Tip: 8# Palmar 3 point: 11# Right Hand Strength - Field Kiln Burner (lbs) Handle Setting 2: 53#, 54#, 53# [...] Time Frame for Short term goals: STG=LTG [facility] goals Time Frame for laborer hoisting goals : 12 visits (01/24/2022) [facility] goal 1: pt to be indepenent in HEP [facility] goal 2: Pt to demonstrate R wrist flexion to 65 degrees or more in order to engage in daily tasks [facility] goal 3: Pt to demonstrate R wrist extension to 60 degrees or more in order to engage in daily tasks laborer hoisting goal 4: Pt to be educated on carpal tunnel do's & dont's in order to prevent further repetitive injury to wrist Patient's Goal: pt wishes to return to prior function Time In: 830 Time Out: 924 Timed Coded Minutes: 0 Total Treatment Time: 54 THERESA Houser, OTR/L 12/23/2021 documented in this [facility] Phone: evaluation note* Diagnosis Viral illness Unspecified viral infection, in conditions classified elsewhere and of unspecified site documented in this encounter [employer] Phone: evalaaggwq note* Diagnosis Suspected COVID-19 virus infection documented in this encounter [employer] Phone: evaluation note* Diagnosis Acute cystitis with hematuria Acute cystitis documented in this encounter [employer] Phone: evaluation note* Diagnosis Difficult or painful urination Dysuria documented in this encounter [employer] Phone: evalmwvnpd note* Diagnosis Acute cystitis with hematuria Acute cystitis Recurrent UTI Urinary tract infection, site not specified documented in this encounter [employer] Phone: evalfbfevb note* Diagnosis Frequent UTI Urinary tract infection, site not specified Urinary urgency Urgency of urination Urinary frequency documented in this encounter [employer] Phone: evalcixtdn note* Diagnosis Frequent UTI Urinary tract infection, site not specified Urinary urgency Urgency of urination Urinary frequency documented in this encounter [employer] Phone: evalvhebmc note* Diagnosis MRSA (methicillin resistant Staphylococcus aureus) septicemia (HCC) Methicillin resistant staphylococcus aureus septicemia documented in this encounter [facility] noteNo assessment information availableBarnesville Hospital Work Phone: Evaluation note* Diagnosis Fatigue, unspecified type Encounter for screening for HIV Mixed hyperlipidemia Hyperglycemia Other abnormal glucose Chronic renal impairment, stage 3b (HCC) documented in this encounter [facility] [employer] Phone: evaluation note* Diagnosis Acute cystitis with hematuria Acute cystitis documented in this encounter [employer] Phone: evaluation note* Diagnosis Neck mass Swelling, mass, or lump in head and neck documented in this encounter [employer] Phone: evalxjzuyb note* Diagnosis Pain of foot, unspecified laterality Closed nondisplaced fracture of second metatarsal bone of left foot, initial encounter Closed nondisplaced fracture of lateral cuneiform of left foot, initial encounter documented in this encounter [facility] [employer] Phone: evalfrqyux note* Diagnosis Foreign body (FB) in soft tissue Residual foreign body in soft tissue documented in this encounter [facility] [employer] Phone: evaluation note* Diagnosis Pelvic pressure in female Other specified symptom associated with female genital organs documented in this encounter [facility] [employer] Phone: evaluation note* Diagnosis Charcot arthropathy of midfoot- Primary Gastrocnemius equinus, unspecified laterality Foot pain, left Pain in soft tissues of limb [facility] Diagnosis Mixed hyperlipidemia documented in this encounter [facility]* Diagnosis Idiopathic progressive polyneuropathy Non-seasonal allergic rhinitis due to pollen [facility] Diagnosis Thyroid nodule Nontoxic uninodular goiter documented in this encounter [facility]* Diagnosis Thyroid nodule- Primary Nontoxic uninodular goiter [facility]* Diagnosis BUCK on CPAP- Primary 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 (CMS/HCC) Restless legs Restless legs syndrome (RLS) Bilateral carpal tunnel syndrome Carpal tunnel syndrome [facility]* Diagnosis Idiopathic progressive polyneuropathy- Primary Bilateral carpal tunnel syndrome Carpal tunnel syndrome Restless legs Restless legs syndrome (RLS) Intractable 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 (CMS/HCC) documented in this encounter [facility]* Diagnosis BUCK (obstructive sleep apnea) Obstructive sleep apnea (adult) (pediatric) Hypersomnia Hypersomnia, unspecified Snoring Other dyspnea and respiratory abnormality Class 2 obesity due to excess calories with body mass index (BMI) of 38.0 to 38.9 in adult, unspecified whether serious comorbidity present [facility]* Diagnosis Idiopathic progressive polyneuropathy Non-seasonal allergic rhinitis due to pollen documented in this encounter [facility]* Diagnosis Thyroid nodule- Primary Nontoxic uninodular goiter Lipoma of neck [facility]* Diagnosis 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 (CMS/HCC) [facility]* Diagnosis BUCK on CPAP- Primary Idiopathic progressive polyneuropathy Restless legs Restless legs syndrome (RLS) Intractable 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 (CMS/HCC) documented [facility]* Diagnosis Pre-diabetes Other abnormal glucose Mixed hyperlipidemia documented [facility]* Diagnosis BUCK (obstructive sleep apnea)- Primary Obstructive sleep apnea (adult) (pediatric) BUCK on CPAP Claustrophobia (CMS/HCC) Other isolated or specific phobias documented in this encounter [facility]* Diagnosis BUCK (obstructive sleep [...] apnea (adult) (pediatric) [facility]* Diagnosis BUCK (obstructive sleep apnea)- Primary Obstructive sleep apnea (adult) (pediatric) BUCK on CPAP Claustrophobia Other isolated or specific phobias BUCK (obstructive sleep apnea)- Primary Obstructive sleep apnea (adult) (pediatric) Claustrophobia Other isolated or specific phobias Hypersomnia Hypersomnia, unspecified documented [facility]* Diagnosis BUCK (obstructive sleep apnea)- [...] Generalized edema Edema [facility]* Diagnosis BUCK (obstructive sleep apnea)- [...] foot, initial encounter documented [facility]* Diagnosis BUCK (obstructive sleep apnea)- [...] or radiculitis nos documented [facility] this [facility]* Attachments The following attachments cannot be sent through Care Everywhere. * Diabetic Foot Ulcer (Gabonese) [facility] Narrative* Other (Routine) - Closed Specialty Diagnoses / Procedures Referred By Contac t Referred To Contact Radiology Diagnoses Encounter for screening mammogram for malignant neoplasm of breast Procedures NITA BRIAN DIGITAL SCREEN BILATERAL Back, MD Felipe [address] [id number] Phone: tel: fax: Referral ID Status Reason Start Date Expiration Date Visits Re quested Visits Authorized [id number] Closed 01/29/2025 01/29/2026 1 1 [facility] Narrative* Imaging (Emergency) - Pending Review Specialty Diagnoses / Procedures Referred By Thor bernal Referred To Contact Radiology Diagnoses Pain in right foot Procedures MRI FOOT RIGHT W WO CONTRAST Robbin Sánchez, DPDieudonne [address] [facility], [place] [address] Phone: tel: fax: Referral ID Status Reason Start Date Expiration Date V isits Requested Visits Authorized [id number] Pending Review 04/11/2025 04/10/2026 1 1 [facility] Summary Purpose Family History No Family [...] FoundDocuments on File Type Date Recorded 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 Advance Directives and Living Will Power of Environmental Protection Inspector Latest Code Status on File Code Status Date Activated Date Inactivated Comments Full Code 08/15/2018 4:17 PM 08/25/2018 8:55 PM Full Code 03/19/2017 1:37 PM 03/19/2017 4:32 PM Full Code 03/19/2017 10:57 AM 03/19/2017 1:37 PM Full Code 03/05/2017 12:56 PM 03/05/2017 3:55 PM Full Code 03/05/2017 10:05 AM 03/05/2017 12:56 PM Documents on File Type Date Recorded 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 anation ACP-Advance Directive ACP-Power of Environmental Protection Inspector Documents on File Type Date Recorded 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 anation ACP-Advance Directive ACP-Power of Environmental Protection Inspector Latest Code Status on File Code Status [...] Everywhere. * Back Care Basics: General Info (Gabonese) * Back: Preventing Injuries (Gabonese) documented in this encounter Reason for Referral Status Reason Specialty Diagnoses / Procedures Referre d By Contact Referred To Contact Closed Radiology Diagnoses Brachial neuritis Peripheral nerve disorder Spasm of muscle Procedures MR Cervical Spine Without Contrast Tiffanie Casas MD [address] [place] [address] Specialty Diagnoses / Procedures Referred By Liangac t Referred To Contact Radiology Diagnoses Neck mass Procedures US HEAD NECK SOFT TISSUE THYROID Felipe Adam MD [address] [place] [address] Referral ID Status Reason Start Date Expiration Date Visits Re quested Visits Authorized [id number] Closed 05/27/2022 05/27/2023 1 1 Specialty Diagnoses / Procedures Referred By Thor bernal Referred To Contact Radiology Diagnoses Thyroid nodule Procedures US THYROID Felipe Adam MD [address] [place] [address] Referral ID Status Reason Start Date Expiration Date V isits Requested Visits Authorized [id number] Pending Review 09/06/2024 08/26/2025 1 1 Chief Complaint and Reason for Visit Chief Complaint M54.16 M79.10 M79.60 9 R20.9 Chief Complaint Unknown Additional Source Comments INFORMATION SOURCE (unrecogn ized section and content) DATE CREATED AUTHOR 03/30/2018 [facility] DATE CREATED AUTHOR AUTHOR'S ORGANIZ ATION 03/30/2018 [facility] DATE CREATED AUTHOR AUTHOR'S ORGANIZ ATION 09/15/2018 [facility] DATE CREATED AUTHOR AUTHOR'S ORGANIZ ATION 09/23/2018 [facility] DATE CREATED AUTHOR AUTHOR'S ORGANIZ ATION 09/26/2018 [facility] DATE CREATED AUTHOR AUTHOR'S ORGANIZ ATION 12/10/2018 [facility] DATE CREATED AUTHOR AUTHOR'S ORGANIZ ATION 12/18/2018 [facility] DATE CREATED AUTHOR AUTHOR'S ORGANIZ ATION 02/11/2019 [facility] DATE CREATED AUTHOR AUTHOR'S ORGANIZ ATION 11/30/2021 [facility] DATE CREATED AUTHOR AUTHOR'S ORGANIZ ATION 05/01/2022 [facility] DATE CREATED AUTHOR AUTHOR'S ORGANIZ ATION 01/12/2023 [facility] DATE CREATED AUTHOR AUTHOR'S ORGANIZ ATION 02/15/2023 [facility] DATE CREATED AUTHOR AUTHOR'S ORGANIZ ATION 04/04/2023 [facility] DATE CREATED AUTHOR AUTHOR'S ORGANIZ ATION 02/20/2024 [facility] DATE CREATED AUTHOR AUTHOR'S ORGANIZ ATION 10/17/2024 [facility] DATE CREATED AUTHOR AUTHOR'S ORGANIZ ATION 02/14/2025 [facility] DATE CREATED AUTHOR AUTHOR'S ORGANIZ ATION 2025 [facility] EP[facility] DATE CREATED AUTHOR AUTHOR'S ORGANIZ ATION 06/13/2025 [facility] Reason for Visit (unrecogniz ed section and content) Reason Comments Sleep Apnea Specialty Diagnoses / Procedures Referred By Thor bernal Referred To Contact Neurology Diagnoses BUCK on CPAP Procedures [place] OFFICE/OUTPATIENT NEW HIGH MDM 60 MINUTES Fozia Meng, VP [employer] [address], [facility] [address] [place] [address] Phone: tel: fax: Lynn Block MD [address] [facility] [address] [place] [address] Phone: tel: fax: Referral ID Status Reason Start Date Expiration Date V isits Requested Visits Authorized [id number] Closed Specialty Services Required 11/14/2024 05/13/2025 1 1 Status Reason Specialty Diagnoses / Procedures Referre d By Contact Referred To Contact Closed Radiology Diagnoses Brachial neuritis Peripheral nerve disorder Spasm of muscle Procedures MR Cervical Spine Without Contrast Tiffanie Casas MD [address] [address] Specialty Diagnoses / Procedures Referred By Contac t Referred To Contact Occupational Therapy Diagnoses Carpal tunnel syndrome Carpal Tunnel Syndrome Procedures Eval and treat Keenan Lozano MD [address] [facility] [address] [place] [address] [facility] [address] [place] [address] Referral ID Status Reason Start Date Expiration Date Visits Re quested Visits Authorized [id number] Open 12/19/2021 12/19/2022 1 1 Specialty Diagnoses / Procedures Referred By Contac t Referred To Contact Physical Therapy Diagnoses Radiculopathy, lumbar region Lumbar Radiculopathy Procedures Eval and treat Janel Allen, GUILLOTINE TRIMMER - TRIP RIDER [address] [address] [facility] [address] [place] [address] Referral ID Status Reason Start Date Expiration Date Visits Re quested Visits Authorized [id number] Open 12/19/2021 12/19/2022 1 1 Specialty Diagnoses / Procedures Referred By Contac t Referred To Contact Radiology Diagnoses Neck mass Procedures US HEAD NECK SOFT TISSUE THYROID Back, MD Felipe [address] [place] [address] Referral ID Status Reason Start Date Expiration Date Visits Re quested Visits Authorized [id number] Closed 05/27/2022 05/27/2023 1 1 Specialty Diagnoses / Procedures Referred By Liangac t Referred To Contact Radiology Diagnoses Pain of foot, unspecified laterality Closed nondisplaced fracture of lateral cuneiform of left foot, initial encounter Procedures MRI FOOT LEFT W WO CONTRAST MRI FOOT LEFT W WO CONTRAST Robbin Sánchez, DPM [address] [facility], [address] [place] [id number] Referral ID Status Reason Start Date Expiration Date Visits Re quested Visits Authorized [id number] Closed 06/20/2022 06/20/2023 1 1 Reason Comments Education Class Specialty Diagnoses / Procedures Referred By Thor t Referred To Contact Diabetes Services Diagnoses Pre-diabetes Felipe Adam MD [address] [place] [address] [facility] [address] [place] [address] Referral ID Status Reason Start Date Expiration Date V isits Requested Visits Authorized [id number] Open Specialty Services Required 06/30/2022 06/30/2023 2 2 Specialty Diagnoses / Procedures Referred By Thor t Referred To Contact Diabetes Services Diagnoses Pre-diabetes Felipe Adam MD [address] [place] [id number] [facility] [address] [place] [phone] Reason Comments Other Left foot charcot on -going since 06/2022. New x-rays today. 2nd of opinion. Specialty Diagnoses / Procedures Referred By Thor t Referred To Contact Radiology Diagnoses Thyroid nodule Procedures US THYROID Felipe Adam MD [address] [place] [phone] Referral ID Status Reason Start Date Expiration Date V isits Requested Visits Authorized [id number] Pending Review 09/06/2024 08/26/2025 1 1 Reason Onset Date Comments Med Refill 10/05/2024 Reason Comments New Patient FNA - THYROID NODULE Specialty Diagnoses / Procedures Referred By Thor bernal Referred To Contact Otolaryngology Diagnoses Thyroid nodule Back, MD Felipe [address] [place] [address] Phone: tel: fax: Sherman Adair MD [address] [place] [phone] Phone: tel: fax: Referral ID Status Reason Start Date Expiration Date V isits Requested Visits Authorized [id number] Pending Review 09/09/2024 09/09/2025 1 1 Reason [...] Care Teams (unrecognized sec tion and content) Media Reconciliation Specialist Relationship Specialty Start Date End Date Back, MD Felipe [address] [place] [address] PCP - General Internal Medicine 11/14/11 Media Reconciliation Specialist Relationship Specialty Start Date End Date Back, MD Felipe [address] [place] [address] PCP - General Internal Medicine 11/14/11 Media Reconciliation Specialist Relationship Specialty Start Date End Date Back, MD Felipe [address] [place] [address] PCP - General Internal Medicine 11/14/11 Media Reconciliation Specialist Relationship Specialty Start Date End Date Back, MD Felipe [address] [place] [phone] PCP - General Internal Medicine 11/14/11 Media Reconciliation Specialist Relationship Specialty Start Date End Date Back, MD Felipe [address] [place] [address] PCP - General Internal Medicine 11/14/11 Media Reconciliation Specialist Relationship Specialty Start Date End Date Back, MD Felipe [address] [place] [address] PCP - General Internal Medicine 11/14/11 Media Reconciliation Specialist Relationship Specialty Start Date End Date Back, MD Felipe [address] [place] [address] PCP - General Internal Medicine 11/14/11 Team Status: Inactive Member Role Status Dates NON STAFF Primary Care Provider Active Tiffanie Casas MD Attending Provider Active Team Status: Active Member Role Status Dates NON STAFF Primary Care Provider Active Media Reconciliation Specialist Relationship Specialty Start Date End Date Back, MD Felipe [address] [place] [address] PCP - General Internal Medicine 11/14/11 Media Reconciliation Specialist Relationship Specialty Start Date End Date Back, MD Felipe [address] [place] [address] PCP - General Internal Medicine 11/14/11 Media Reconciliation Specialist Relationship Specialty Start Date End Date Back, MD Felipe [address] [place] [address] PCP - General Internal Medicine 11/14/11 Media Reconciliation Specialist Relationship Specialty Start Date End Date Back, MD Felipe [address] [place] [address] PCP - General Internal Medicine 11/14/11 Media Reconciliation Specialist Relationship Specialty Start Date End Date Back, MD Felipe [address] [place] [address] PCP - General Internal Medicine 11/14/11 Media Reconciliation Specialist Relationship Specialty Start Date End Date Back, MD Felipe [address] [facility], [facility] PCP - General Internal Medicine 11/14/11 Media Reconciliation Specialist Relationship Specialty Start Date End Date Back, MD Felipe [address] [facility], [place] [address] PCP - General Internal Medicine 11/14/11 Media Reconciliation Specialist Relationship Specialty Start Date End Date Back, MD Felipe [address] [facility], [place] [address] PCP - General Internal Medicine 11/14/11 Media Reconciliation Specialist Relationship Specialty Start Date End Date Back, MD Felipe [address] [place] [address] PCP - General Internal Medicine 03/26/15 Media Reconciliation Specialist Relationship Specialty Start Date End Date Back, MD Felipe [address] [facility], [place] [address] PCP - General Internal Medicine 11/14/11 Team Status: Inactive Member Role Status Dates Frances Harris DPM MS Attending Provider Active Start: February 15, 2024 End: February 15, 2024 Media Reconciliation Specialist Relationship Specialty Start Date End Date Back, MD Felipe [address] [facility], [place] [address] PCP - General Internal Medicine 11/14/11 Media Reconciliation Specialist Relationship Specialty Start Date End Date Back, MD Felipe [address] [facility], [place] [address] PCP - General Internal Medicine 11/14/11 Media Reconciliation Specialist Relationship Specialty Start Date End Date Back, MD Felipe [address] [place] [phone] PCP - General Internal Medicine 03/26/15 Media Reconciliation Specialist Relationship Specialty Start Date End Date Back, MD Felipe [address] [place] [address] PCP - General Internal Medicine 03/26/15 Media Reconciliation Specialist Relationship Specialty Start Date End Date Back, MD Felipe [address] [facility], [place] [address] PCP - General Internal Medicine 11/14/11 Media Reconciliation Specialist Relationship Specialty Start Date End Date Back, MD Alcides [address] [facility], [place] [address] PCP - General Family Medicine 12/08/24 Media Reconciliation Specialist Relationship Specialty Start Date End Date Back, MD Alcides [address] [place] [address] PCP - General Family Medicine 12/08/24 Media Reconciliation Specialist Relationship Specialty Start Date End Date Back, MD Felipe [address] [place] [address] PCP - General Internal Medicine 11/14/11 Media Reconciliation Specialist Relationship Specialty Start Date End Date Back, MD Alcides [address] [place] [address] PCP - General Family Medicine 12/08/24 Media Reconciliation Specialist Relationship Specialty Start Date End Date Back, MD Felipe [address] [facility], [place] [address] PCP - General Internal Medicine 11/14/11 Media Reconciliation Specialist Relationship Specialty Start Date End Date Back, MD Alcides [address] [facility], [place] [address] PCP - General Family Medicine 12/08/24 Media Reconciliation Specialist Relationship Specialty Start Date End Date Back, MD Alcides [address] [place] [address] PCP - General Family Medicine 12/08/24 Media Reconciliation Specialist Relationship Specialty Start Date End Date Back, MD Alcides [address] [place] [address] PCP - General Family Medicine 12/08/24 Media Reconciliation Specialist Relationship Specialty Start Date End Date Back, MD Alcides [address] [place] [address] PCP - General Family Medicine 12/08/24 Media Reconciliation Specialist Relationship Specialty Start Date End Date Back, MD Felipe [address] [place] [address] PCP - General Internal Medicine 11/14/11 Media Reconciliation Specialist Relationship Specialty Start Date End Date Back, MD Felipe [address] [place] [address] PCP - General Internal Medicine 11/14/11 Media Reconciliation Specialist Relationship Specialty Start Date End Date Back, MD Alcides [address] [place] [address] PCP - General Family Medicine 12/08/24 Media Reconciliation Specialist Relationship Specialty Start Date End Date Back, MD Felipe [address] [place] [address] PCP - General Internal Medicine 11/14/11 Media Reconciliation Specialist Relationship Specialty Start Date End Date Back, MD Alcides [address] [place] [address] PCP - General Family Medicine 12/08/24 Media Reconciliation Specialist Relationship Specialty Start Date End Date Alcides Adam MD [address] [place] [address] PCP - General Family Medicine 12/08/24 Goals [...] daily for 10 days 30 capsule 04/04/2025 ciprofloxacin (CIPRO) 500 MG tablet Take 1 [...] 221 (New Bag - Provider: Rebeca Moore RN)2320 [...] BE BASED ON THE PRIMARY CLINICAL RECORDS. [facility]. provides no warranty or guarantee of the accuracy or completeness of information in this document.
== END 2025-06-14 11:15 | disposition home or self-care (01) ==
LOC: WC 11:14
PROVIDERS: PCP Internal Medicine; Visit Provider Physician Assistant
DX: E11.621 Type 2 diabetes mellitus with foot ulcer (principal); L97.422 Non-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 with fat layer exposed; L97.515 Non-pressure chronic ulcer of other part of right foot with muscle involvement without evidence of necrosis
CPT/HCPCS: 11043

== ENCOUNTER 2025-06-28 09:59 | Outpatient (OUT) | payer OTHER, SELFPAY ==
--- OUTSIDE RECORDS SUMMARY | 2025-06-28 10:05 | XMS_ITS | Patient Health Record ---
Author Organization [facility] [place] Address [address] [place] [address] Care Team Providers Care Cartridge Assembling Machine Adjuster Name Role Phone None, Unknown or Primary Care Provider Unavailab Frances Plascencia [phone] Allergies Allergen (clinical drug ingredient) Drug/Non Drug Allergy documented on EMR Reaction Allergy Type Onset Date Status ChloraPrep One Step Unknown Drug Allergy Active Results Component Value Reference Range Notes XR foot LT min 3V (Not yet r eviewed by provider) Interpretation: Performing Lab: Notes/Report: Source Facility: [place] [address] XRay Report Signed Patient: CELINA GASPAR MR#: [id number] : 1980 Acct:[id number] Age/Sex: 44 / F ADM Date: 08/23/24 Loc: RAD Attending Dr: Frances Chase D.P.M. Ordering Physician: Frances Chase D.P.M. Date of Service: 08/23/24 Procedure(s): XR foot LT min 3V Accession Number(s): [id number] cc: Frances Chase D.P.M.; Physician,Non-Staff Mathe[facility] [place] [id number] Patient Name: CELINA GASPAR MRN: [id number] date: 1980 Sex: F Assigned Patient Location: RAD Current Patient Location: Accession/Order Number: [id number] Exam Date: 08/23/2024 10:38 Report Date: 08/25/2024 [...] M.D. Signed By: 08/25/24616 DD/ 3 TD/TT: In File Operator: XR foot LT min 3V (Not yet r eviewed by provider) Interpretation: Performing Lab: Notes/Report: Source Facility: [place] [address] XRay Report Signed Patient: CELINA GASPAR MR#: [id number] : 1980 Acct:[id number] Age/Sex: 44 / F ADM Date: 09/20/24 Loc: RAD Attending Dr: Frances Chase D.P.M. Ordering Physician: Frances Chase D.P.M. Date of Service: 09/20/24 Procedure(s): XR foot LT min 3V Accession Number(s): [id number] cc: Frances Chase D.P.M.; Physician,Non-Staff Matheus [facility] [place] [address] Patient Name: CELINA GASPAR MRN: [id number] date: 1980 Sex: F Assigned Patient Location: RAD Current Patient Location: Accession/Order Number: [id number] Exam Date: 09/20/2024 10:45 Report Date: 09/21/2024 [...] M.D. Signed By: 09/21/2459 DD/ 5 TD/TT: In File Operator: XR foot LT min 3V (Not yet r eviewed by provider) Interpretation: Performing Lab: Notes/Report: Source Facility: [place] [address] XRay Report Signed Patient: CELINA GASPAR MR#: [id number] : 1980 Acct:[id number] Age/Sex: 44 / F ADM Date: 11/01/24 Loc: RAD Attending Dr: Frances Chase D.P.M. Ordering Physician: Frances Chase D.P.M. Date of Service: 11/01/24 Procedure(s): XR foot LT min 3V Accession Number(s): [id number] cc: Frances Chase D.P.M.; Physician,Non-Staff Matheus [facility] [place] [address] Patient Name: CELINA GASPAR MRN: [id number] date: 1980 Sex: F Assigned Patient Location: RAD Current Patient Location: Accession/Order Number: [id number] Exam Date: 11/01/2024 10:45 Report Date: 11/02/2024 [...] Signed By: 11/02/24 1312 DD/ 1309 TD/TT: In File Operator: BRAYANX (Not yet reviewed by provider) Interpretation: Performing Lab:[facility], [address] [place] [address] PH:[phone] Notes/Report: Morphology MODERATE ANISOCYTOSIS BASIC METABOLIC PANL (Not ye t reviewed by provider) Interpretation: Performing Lab:[facility], [address] [place] [id number] PH:[phone] Notes/Report: NA (Sodium) 138 135-144 mmol/L K [...] comparing to equation. Calcium 9.3 8.6-10.4 mg/dL ESR (Not yet reviewed by pro vider) Interpretation: Performing Lab:[facility], [address] [facility] [place] [address] PH:[phone] Notes/Report: Sedimentation Rate 19 0-20 mm/Hr CRP (Not yet reviewed by pro vider) Interpretation: Performing Lab:[facility], [address] [facility] [place] [address] PH:[phone] Notes/Report: C-Reactive Protein 6.2 0.0-5.0 mg/L CBC (COMPLETE BLOOD COUNT) * (Not yet reviewed by provider) Interpretation: Performing Lab:[facility], [address] [facility] [place] [address] PH:[phone] Notes/Report: WBC Count 3.8 3.5-11.0 k/uL RBC Count 3.54 4.00-5.20 m/uL Hemoglobin 9.9 12.0-16.0 g/dL Hematocrit 32.3 36.0-46.0 % MCV 91.2 80.0-100.0 fL MCH 28.0 26.0-34.0 pg MCHC 30.7 31.0-37.0 g/dL RDW 19.4 12.1-15.2 % Platelet Count 154 140-450 k/uL MPV 11.7 6.0-12.0 fL XR foot LT min 3V (Not yet r eviewed by provider) Interpretation: Performing Lab: Notes/Report: Source Facility: [facility] [place] [address] [place] [address] XRay Report Signed Patient: CELINA GASPAR MR#: [id number] : 1980 Acct:[id number] Age/Sex: 44 / F ADM Date: 11/18/24 Loc: EC Attending Dr: Frances Chase D.P.M. Ordering Physician: Frances Chase D.P.M. Date of Service: 11/18/24 Procedure(s): XR foot LT min 3V Accession Number(s): [id number] cc: Frances Chase D.P.M.; Physician,Non-Staff Matheus [facility] [place] [address] Patient Name: CELINA GASPAR MRN: [id number] date: 1980 Sex: F Assigned Patient Location: Current Patient Location: Accession/Order Number: [id number] Exam Date: 11/18/2024 10:55 Report Date: 11/18/2024 [...] Signed By: 11/18/24 1346 DD/ 1344 TD/TT: In File Operator: XR foot LT min 3V (Not yet r eviewed by provider) Interpretation: Performing Lab: Notes/Report: Source Facility: [place] [address] [place] [address] XRay Report Signed Patient: CELINA GASPAR MR#: [id number] : 1980 Acct:[id number] Age/Sex: 44 / F ADM Date: 07/27/24 Loc: RAD Attending Dr: Frances Chase D.P.M. Ordering Physician: Frances Chase D.P.M. Date of Service: 07/27/24 Procedure(s): XR foot LT min 3V Accession Number(s): [id number] cc: Frances Chase D.P.M.; Physician,Non-Staff Matheus [facility] [place] [address] Patient Name: CELINA GASPAR MRN: [id number] date: 1980 Sex: F Assigned Patient [facility] Current Patient Location: Accession/Order Number: [id number] Exam Date: 07/27/2024 10:48 Report Date: 07/31/2024 [...] M.D. Signed By: 07/31/24721 DD/ 8 TD/TT: In File Operator: Reason For Referral Reason Referral to [facility] Diagnosis 1 Charcot's joint, lef t ankle and foot (M14.672) Referral Organization [facility] ([facility]) Referring Provider First Name Frances Referring Provider Last Name Rena Referring Provider Speciality Podiatry Referred Provider Specialty Podiatry Referral Priority Routine Medications Medication SIG (Take, Route, Frequency, Duration) Notes Start Date End Date Status rOPINIRole HCl Activ e Alendronate Sodium 70 MG 1 tablet 30 min utes before the first food, beverage or medicine of the day with plain water Orally weekly; Duration: 94 days 07/01/2024 Active Naltrexone Active Nurtec Active Lisdexamfetamine Dimesylate 50 MG Oral; Duration: 30 Days Acti ve Lyrica Active Famotidine 20 MG TAKE 1 TABLET BY 2 TIMES DAILY Oral; Duration: 30 Days Active Gemfibrozil Active Biotin Active [...] Problem Status W/U Status Risk Notes Problem Information temporarily unavailable Type 2 diabetes mellitus with diabetic polyneuropathy (E11.42) Active confirmed Problem Information temporarily unavailable Type 2 diabetes mellitus with foot ulcer (E11.621) Active confirmed Problem Information temporarily unavailable Hereditary and idiopathic neuropathy, unspecified (G60.9) Active confirmed Problem Information temporarily unavailable Charcot's joint, left ankle and foot (M14.672) Active confirmed High Problem Information temporarily unavailable Primary osteoarthritis, 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) Active confirmed Problem Information temporarily unavailable Other acquired deformities of left foot (M21.6X2) Active confirmed High Problem Information temporarily unavailable Contracture, left ankle (M24.572) Active confirmed Problem Information temporarily unavailable Pain in left ankle and joints of left foot (M25.572) Active confirmed Problem Information temporarily unavailable Pain in left foot (M79.672) Active confirmed Problem Information temporarily unavailable Disruption of external operation (surgical) wound, not elsewhere classified, initial encounter (T81.31XA) Active confirmed Problem Information temporarily unavailable Type 2 diabetes mellitus with diabetic polyneuropathy (E11.42) Active confirmed Problem Information temporarily unavailable 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) Active confirmed Problem Information temporarily unavailable Non-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 with other specified severity (L97.428) Active confirmed Problem Information temporarily unavailable Controlled type 2 diabetes mellitus with other skin ulcer, without long-term current use of insulin (E11.622) Active confirmed Problem Information temporarily unavailable 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) Active confirmed Problem Information temporarily unavailable Ischemic ulcer of left heel with fat layer exposed (L97.422) Active confirmed Vital Signs Heart Rate 88 /min 11/18/2024 Temperature 97.2 degrees Fahrenheit 11/18/2024 Oximetry 96 % 11/18/2024 Height 62 in 11/18/2024 Weight 200 lbs 11/18/2024 BMI 36.58 kg/m2 11/18/2024 Encounters Encounter Location Date Provider Diagnosis [facility] (PODI[facility]) [address] [place], [place] [address] [address] 07/27/2024 Frances Chase Pseudarthrosis after fusion or arthrodesis M96.0 ; Charcot's joint, left ankle and foot M14.672 and Pain in left foot M79.672 [facility] ([facility]OD[facility]) [address] [place], [place] [address] [address] 08/23/2024 Frances Chase Pain in left foot M79.672 ; Charcot's joint, left ankle and foot M14.672 and 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 [facility] ([facility]) [address] [facility] [facility] [address] 09/20/2024 Frances Chase Pseudarthrosis after fusion or arthrodesis M96.0 ; Charcot's joint, left ankle and foot M14.672 ; Hereditary and idiopathic neuropathy, 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 and Pain in left foot M79.672 [facility] (POD[facility]) [address] [place], [place] [address] [address] 11/01/2024 Frances Chase Charcot's joint, lef t ankle and foot M14.672 ; Pseudarthrosis after fusion or arthrodesis M96.0 and Pain in left foot M79.672 [facility] ([facility]OD[facility]) [address] [place], [place] [address] [address] 11/18/2024 Frances Chase Pseudarthrosis after fusion or arthrodesis M96.0 ; Charcot's joint, left ankle and foot M14.672 and Pain in left foot M79.672 [facility] ([facility]OD[facility]) [address] [place], [place] [address] [address] 07/01/2024 Frances Chase [facility] ([facility]) [address] [facility] [address] 08/04/2024 Frances Chase Assessments Encounter Date Diagnosis [...] 09/20/2024 XR Foot LT (3 views) * 11/18/2024 XR Foot LT (3 views) * 11/01/2024 CBC (COMPLETE BLOOD COUNT) * 05/15/2025 CRP [...] Insured Coverage Start Date Coverage End Date [facility] [address] [place], [place] [id number] Celina Gaspar Self - patient is the [...]
--- OUTSIDE RECORDS SUMMARY | 2025-06-28 10:05 | XMS_ITS | Clinical Summary ---
Author Organization [facility] Address [address] [place] [address] Phone Care Team Providers Care Winding Department Supervisor Name Role Phone Unavailable Primary Care Provider [...]
--- OUTSIDE RECORDS SUMMARY | 2025-06-28 10:05 | XMS_ITS | Clinical Summary ---
Author Organization [facility] Address [address] [place] [address] Care Team Providers Care Stone Mason Name Role Phone Felipe Adam MD Primary Care Provider [phone] Allergies Active Allergy Reactions Criticality Noted Date [...] Description 10/12/2025 10:30 AM EST Office Visit [facility] [address] [place] [address] Dimas Adair MD [address] [place] [address] Health Maintenance Due Date Last Done Comments CT Colonography 1979 Fecal DNA 1979 Fecal occult blood test (FOBT,FIT) 1979 Flexible sigmoidoscopy 1979 Depression Screening/Follow- Up (PHQ-2/9) 1991 Hepatitis C Screening 1997 Mammogram 2019 Pap Smear 03/20/2020 03/20/2017 Cervical Cancer Screening 03/20/2022 HPV/Cotest 03/20/2022 03/20/2017 Wellness Visit 04/11/2023 04/11/2022 Tetanus: Every 10yrs 09/08/2024 09/08/2014 COVID-19 Vaccine (1 - 2023-2 5 season) 2025 Influenza Vaccine (#1) 2025 Colonoscopy 12/10/2027 12/09/2017 [...] Screen Negative Negative 10/21/2017 9:47 AM EST [facility] Blood BLOOD SPECIMEN / Unknown 10/20/2017 5:25 PM EST 10/20/2017 10:58 PM EST Narrative [facility] - 10/21/2017 9:47 AM EST Test performed using Koduco Immunodiagnostic system. us Edu Parry MD LAB BLOOD ORDERABLES Lou l Result [facility] [address] [place] [address] * High Risk HPV with Genotype 16,18 (03/20/2017 12:00 AM EDT) HPV 16 Negative Negative 04/01/2017 2:01 PM EDT [facility] HPV 18 Negative Negative 04/01/2017 2:01 PM EDT [facility] HPV, Other HR Types Negative Negative 04/01/2017 2:01 PM EDT [facility] Pap, Liquid Based CERVIX UTERI STRUCTURE / Unknown 03/20/2017 03/31/2017 9:32 PM EDT Narrative [facility] - 04/01/2017 2:01 PM EDT Assay performed using Maria Elena Twin 4800 system utilizing Real-Time PCR to amplify target HPV DNA. This system specifically identifies HPV16 and HPV18 while concurrently detecting the other twelve high risk types (31,33,35,39,45,51,52,56,58,59,66,68). Shanice Richard DO BODY FLUIDS AND STO OLS ORDERABLES Final Result [facility] [address] [place] [address] * Thinprep Pap Smear (03/20/2017 12:00 AM [...] HPV DNA. This system specifically identifies HPV16 [id number] while concurrently detecting the other twelve high risk types(31,33,35,39,45,51,52,56,58,59,66,68). Completed by on 2017-04-02 Electronically Signed By Arielle NEFF (ASCP) , Manager Inspection (Case signed 03/30/2017) The Papanicolaou smear is a screening tool, and like any screen, has an inherent false negative rate. Interpretation of results should be made in the context of patient history and clinical findings. Shanice Leemary Jose Manuel DO PATHOLOGY/CYTOLOGY ORDERABLES Final Result [place] from Last 3 Months or Most Recently Relevant to Health Maintenance Insurance [facility] HMO/CHOICE PLUS/DULCE/DULCE PLUS Care Teams Stone Mason Relationship Specialty Start Date End Date Back, MD Felipe [address] [place] [address] PCP - General Internal Medicine 03/26/15
--- OUTSIDE RECORDS SUMMARY | 2025-06-28 10:05 | XMS_ITS | Encounter Summary ---
Author Organization [facility] Address [address] [facility] [place] [address] Care Team Providers Care Machine Overhauler Name Role Phone Alcides Adam MD Primary Care Provider [phone] Encounter Details Date Type Department Care Team (Late Contact Info) Description 08/24/2023 Clinisync Result Encounter [facility] External Department Unsolicited Trace Casas MD [address] [address] Social History Tobacco Use Types [...] Upcoming Encounters Date Type Department Care Team ([facility] Contact Info) Description 08/23/2025 1:00 PM EST Office Visit [facility] [address] [facility] [place] [address] Jennie Barajas, BAND DIRECTOR-PESTICIDE USE MEDICAL COORDINATOR [address] [place], [place] [phone] documented as of this encounter Procedures Procedure [...] on filedocumented in this encounter Care Teams Machine Overhauler Relationship Specialty Start Date End Date Back, MD Alcides [address] [place] [address] PCP - General Family Medicine 12/08/24 documented as of this encounter
--- OUTSIDE RECORDS SUMMARY | 2025-06-28 10:05 | XMS_ITS | Continuity of Care Document ---
Author Organization [facility] Address [address] [place] [phone] Phone [phone] Care Team Providers Care Plastic Molding Operator Name Role Phone Back, Alcides MELENDREZ Care Team Information Finisher Hot Strip [phone] Problems Active Problems Provider Date Chronic kidney [...] Patient has never smoked Smoking Status Reviewed: 06/13/25 Patient has never sm oked Results Test Acquired Date Facility Test Result H/L Range Note .Urine Protein/Creat. Random 06/12/2025 [place] [phone] .Urine Protein Random <4 .Urine Creatini ne Random 52.4 .V Ipth-Vitamin D 06/12/2025 [place] .Ipth 40.0 .Vitamin D, 25 Hydroxy 29.2 .Renal Panel 06/12/2025 [place] .Albumin 4.2 .Calcium 9.2 .Carbon Dioxide 24 .Chloride 99 .Phosphorus 3.9 .Potassium 4.5 .Sodium 135 .BUN 23 .GFR 51 High 20 .Creatinine-LC 1.3 .Urine Protein/Creat. Random 05/10/2024 [place], [place] [phone] .Urine Protein Random 9 .Urine Creatini ne Random 132.0 .Urine Prot/Cre at Ratio 0.07 .Magnesium 05/10/2024 [place] .Magnesium 2.2 .Urinalysis-Rout ine 05/10/2024 [place] [phone] Ua Specific [place]gin 1.020 Ua PH Test Strip 5.0 Ua Color yellow Ua Appearance clear Ua Protein trace Ua Glucose negative Ua Ketones negative Ua Bilirubin negative Ua Urobilinogen normal Ua Nitrite negative Ua Occult Blood negative .Renal Panel 05/10/2024 [place] .Albumin 4.2 .Calcium 9.2 .Carbon Dioxide 25 .Chloride 101 .Phosphorus 3.8 .Potassium 4.0 .Sodium 141 .BUN 19 .GFR 52 High 20 .Creatinine-LC 1.3 .Renal Panel 05/17/2023 [place] .Albumin 4.1 .Calcium 9.5 .Carbon Dioxide 29 .Chloride 101 .Phosphorus 3.0 .Potassium 4.3 .Sodium 137 .BUN 17 .GFR >60 High 20 .Creatinine-LC 1.1 .Urine Protein/Creat. Random 05/17/2023 [place] .Urine Protein Random 10 .Urine Creatini ne Random 146.1 .Urine Prot/Cre at Ratio 0.07 .Ipth 05/17/2023 [place], [place] [phone] .Ipth 47.1 .Vitamin D, 25 Hydroxy 05/17/2023 [place], [place] [phone] .Vitamin D, 25 Hydroxy 53.1 .Urine Protein/Creat. Random 05/20/2022 [place] .Urine Protein Random 7 .Urine Creatini ne Random 97.1 .Urine Prot/Cre at Ratio 0.07 .Tibc-LC 05/20/2022 [place] .Tibc-LC 263 .Ferritin 05/20/2022 [place] .Ferritin 164 .Iron 05/20/2022 [place] .Iron 48 .Transferrin-LC 05/20/2022 [place] .Transferrin-LC 280 .T-Sat-LC 05/20/2022 [place] .T-Sat-LC 0.18 .V Ipth-Vitamin D 05/20/2022 [place] .Ipth 39.91 .Vitamin D, 25 Hydroxy 35.3 .Magnesium 05/20/2022 [place] .Magnesium 2.1 .Hemoglobin And Hematocrit 05/20/2022 [place] .Hemoglobin Blood 11.1 .Hematocrit 33.3 .Renal Panel 05/20/2022 [place] .Albumin 4.4 .Calcium 10.0 .Carbon Dioxide 30 .Chloride 105 .Phosphorus 3.8 .Potassium 4.3 .Sodium 144 .BUN 18 .GFR 53 High 20 .GFR 53 High 20 .Creatinine-LC 1.13 .Renal Panel (Other Labs) 05/21/2021 [place] .Albumin 4.2 .Calcium 9.2 .Carbon Dioxide 25 .Chloride 103 .Creatinine-LC 1.18 .Phosphorus 3.7 .Sodium 138 .BUN 19 .GFR 50 High 20 .Potassium 4.2 .Urine Protein/Creat. Random 05/21/2021 [place] .Urine Protein Random 7 .Urine Creatini ne Random 115.7 .Magnesium 05/21/2021 [place] .Magnesium 2.2 .Urinalysis-Rout ine 05/21/2021 [place] [phone] Ua Specific Elgin 1.020 Ua PH Test Strip 5.0 Ua Color YELLOW Ua Appearance CLEAR Ua Protein TRACE Ua Glucose NEGATIVE Ua Ketones NEGATIVE Ua Urobilinogen NORMAL Ua Occult Blood NEGATIVE .Ua 05/25/2020 [place] Ua Appearance clear Ua Bilirubin - Ua Blood - Ua Color yellow Ua Glucose 100mg/dl Ua Leuko - Ua Nitrite - Ua PH Test Strip 6.0 Ua Protein - Ua Specific Elgin 1.020 Ua Urobilinogen - .Urine Protein/Creat. Random 05/25/2020 [place] [phone] .Urine Protein Random 8 .Urine Creatini ne Random 101.2 .Urine Prot/Cre at Ratio 0.08 .Renal Panel 05/25/2020 [place] .Albumin 4.4 .Calcium 10.1 .Carbon Dioxide 26 .Chloride 104 .Creatinine-LC 1.37 .Phosphorus 87 .Sodium 140 .BUN 24 .GFR-LC 43 High 20 .Potassium 4.6 .Renal Panel 06/17/2019 [place] .Albumin 4.3 .Calcium 10.4 .Carbon Dioxide 24 .Chloride 103 .Creatinine-LC 1.27 .Phosphorus 3.0 .Sodium 140 .BUN 18 .GFR-LC 47 High 20 .Potassium 3.8 .Ua 06/17/2019 [place] [phone] Ua Appearance HAZY Ua Bacteria 1+ Ua Bilirubin NEG Ua Blood NEG Ua Color YELLOW Ua Epithelial Cells QL 2-5 Ua Glucose NEG Ua Ketones NEG Ua Leuko NEG Ua Nitrite NEG Ua PH Test Strip 6.0 Ua Protein TRACE Ua Specific El[place] 1.025 Ua Urobilinogen NORMAL Ua WBC 0-2 .Urine Protein/Creat. Random 06/17/2019 [place] .Urine Protein Random 18 .Urine Creatini ne Random 228.2 .Urine Prot/Cre at Ratio 0.08 .Magnesium 06/17/2019 [place] .Magnesium 2.3 .Hemoglobin And Hematocrit 06/17/2019 [place] .Hemoglobin Blood 12.1 .Hematocrit 35.4 .Renal Panel -LC 04/14/2018 [place] .Albumin 3.7 .Calcium 8.9 .Carbon Dioxide 30 .Chloride 101 .Creatinine-LC 1.28 .Phosphorus 3.6 .Sodium 140 .BUN 19 .GFR-LC 47 High 20 .Potassium 4.1 .Urine Protein/Creat. Random 04/14/2018 [place] .Urine Protein Random 7 .Urine Creatini ne Random 100.7 .Urine Prot/Cre at Ratio 0.07 .CBC W/Differential 04/14/2018 [place] .White Blood Count 8.6 .Red Blood Count 4.40 .Hemoglobin Blood 13.3 .Hematocrit 39.4 MCH (Corpuscula r Hemoglobin) 30.2 MCHC (Corpuscul ar Hemog Conc) 33.7 RDW 15.6 .Platelet Count Blood 232 Neutrophils 59 Fluid Lymphocytes 31 Monocytes 6 Fluid Body Eosinophils 3 Basophils % 1 Absolute Basophils 0.10 Absolute Eosinophils 0.20 Absolute Lymphocytes 2.70 Absolute Monocytes 0.50 .Ipth 04/14/2018 [place] .Ipth 63.56 Xray 11/18/[address], Abdomen, W/ Contrast SEE REPORT Xray 11/18/[address], Abdomen, W/ Contrast CORTICAL CYST L KIDY .Urinalysis-Cult ure 11/17/2017 [facility] [phone] Culture Urine NO SIGNIFICANT H .Urinalysis-Rout ine 11/17/2017 [facility] [phone] Ua Specific Elgin 1.014 Ua PH Test Strip 6.0 Ua [...] 54 High 20 .Urine Prot/Creat Ratio 02/17/2017 [place] [phone] .Urine Prot/Creat Ratio 0.07 Miscellaneous Other 02/17/2017 [place] Mis Test - Put Test In Order completed .Renal Panel -LC 02/17/2017 [place] [phone] .Albumin 4.1 .Calcium 9.4 .Carbon Dioxide 26 .Chloride 100 .Creatinine-LC 1.31 .Phosphorus 3.4 .Sodium 138 .BUN 21 .GFR-LC 46 High 20 .Potassium 4.1 .BMP W/Egfr-LC 08/07/2016 [facility] [phone] .Sodium 141 .Potassium 4.3 .Chloride 101 .Carbon Dioxide 26 .Calcium 9.5 .Glucose Serum 100 .GFR-LC 52 High 20 .Creatinine-LC 1.17 .BUN 16 .Hemoglobin A1c-LC 08/07/2016 [facility] [phone] .Hemoglobin A1c- 5.1 .Lipid Panel 08/07/2016 [facility] [phone] .Cholesterol 216 .Cholester/HDL Ratio 6.2 High Density Lipoprotein 35 .LDL/HDL Ratio 79 .LDL Cholesterol 102 .Triglycerides 396 .CBC W/O Differential 08/07/2016 [facility] [phone] .Hematocrit 37.1 .Hemoglobin Blood 12.6 .Platelet Count Blood 200 .Red Blood Count 4.24 RDW 15.2 .White Blood Count 7.6 MCH (Corpuscula r Hemoglobin) 29.8 MCHC (Corpuscul ar Hemog Conc) 34.1 Urine Culture 06/08/2015 [place] Culture Urine Routine see report .Urinalysis-Rout ine 06/08/2015 [place] Ua Specific [place] 1.020 Ua PH Test Strip 5.0 Ua Color yellow Ua Appearance clear Ua Protein negative Ua Glucose negative Ua Bilirubin negative Ua Urobilinogen normal Ua Nitrite negative .Urine Protein/Creat. Random 06/08/2015 [place] [phone] .Urine Protein Random 13 .Urine Creatini ne Random 219.4 .Urine Prot/Cre at Ratio 0.05 .Renal Panel 06/08/2015 [place] [phone] .Albumin 4.0 .Calcium 8.9 .Carbon Dioxide 26 .Chloride 101 .Creatinine-LC 1.29 .Phosphorus 3.0 .Potassium 3.6 .Sodium 139 .BUN 14 .GFR-LC 47 High 20 .Hemoglobin And Hematocrit 06/08/2015 [place] .Hemoglobin Blood 12.8 .Hematocrit 38.2 .Ua 12/29/2014 [place] Ua Appearance clear Ua Bilirubin negative Ua Blood trace Ua Color yellow Ua Epithelial Cells QL 2 to 5 Ua Glucose negative Ua Leuko negative Ua Nitrite negative Ua PH Test Strip 5.0 Ua Protein negative Ua RBC 0 to 2 Ua Specific El[place] 1.020 Ua Urobilinogen normal .Renal Panel 12/29/2014 [place] [phone] .Albumin 4.1 .Calcium 9.7 .Carbon Dioxide 30 .Chloride 102 .Creatinine-LC 1.50 .Phosphorus 4.2 .Potassium 4.1 .Sodium 142 .BUN 18 .GFR-LC 40 High 20 .Urine Protein/Creat. Random 12/29/2014 [place] .Urine Protein Random 6 .Urine Creatini ne Random 126.0 .Urine Prot/Cre at Ratio 0.05 .Renal Panel 12/06/2014 [place] [phone] .Albumin 4.0 .Calcium 9.2 .Carbon Dioxide 28 .Chloride 101 .Creatinine-LC 1.32 .Phosphorus 3.0 .Potassium 4.3 .Sodium 139 .BUN 17 .GFR-LC 46 High 20 .Urine Protein/Creat. Random 12/06/2014 [place] .Urine Protein Random 7 .Urine Creatini ne Random 196.8 .Urine Prot/Cre at Ratio 0.04 .Ua 12/06/2014 [place], [place] [phone] Ua Appearance clear Ua Bacteria 1+ Ua Bilirubin negative Ua Blood trace Ua Color yellow Ua Epithelial Cells QL 2 to 5 Ua Glucose negative Ua Leuko negative Ua Nitrite negative Ua PH Test Strip 6.0 Ua Protein negative Ua RBC 2 to 5 Ua Specific [place] 1.020 Ua Urobilinogen normal .Complement C3 06/13/2014 [place] .Complement C3 140 .Magnesium 06/13/2014 [place] .Magnesium 2.3 .Calcium 06/13/2014 [place] .Calcium 9.1 .Phosphorus 06/13/2014 [place] .Phosphorus 3.8 .Urine Protein 24HR 06/13/2014 [place], [place] [phone] .Urine Protein Total 24H 63 .Urinalysis-Rout ine 06/13/2014 [place], [place] [phone] Ua Specific El[place] 1.015 Ua PH Test Strip 6.0 Ua Color YELLOW Ua Appearance CLEAR Ua Protein NEGATIVE Ua Glucose NEGATIVE Ua Bilirubin NEGATIIVE Ua Urobilinogen NORMAL Ua Nitrite NEGATIVE .V Ipth-Vitamin D 06/13/2014 [place], [place] [phone] .Ipth 49.31 .Vitamin D, 25 Hydroxy 28.9 .Anca Panel-LC 06/13/2014 [place] .Anca-C 30 .Anca-P 7 .Urine Protein Elect Ran 06/13/2014 [place], [place] [phone] Urine Interpretation NORMAL .GBM Antibody-LC 06/13/2014 [place] .Anti-GBM- 4 .Complement Total (CH50) 06/13/2014 [place] .Complement Total (CH50) 115 .Complement C4 06/13/2014 [place] .Complement C4 29 .Ipth 06/13/2014 [place] .Ipth 49.31 .Lipid Panel 06/13/2014 [place] .Cholesterol 41 .Cholester/HDL Ratio 5.6 High Density Lipoprotein 41 .LDL/HDL Ratio 58 .LDL Cholesterol 131 .Triglycerides 289 .Immunofixation- Urine 06/13/2014 [place] .Immunofixation-U rine NEGATIVE .Vitamin D, 25 Hydroxy 06/13/2014 [place] .Vitamin D, 25 Hydroxy 28.9 .Cryoglobulin 06/13/2014 [place] .Cryoglobulin 0 .Hepatitis B-Surface Antigen 06/13/2014 [place] .Hepatitis B-Surface Antigen NON REACTIVE .Hepatitis C 06/13/2014 [place] .Hepatitis C NON REACTIVE .Immunofixation- Serum 06/13/2014 [place] .Immunofixation-S genesis NEGATIVE .Hemoglobin And Hematocrit 06/13/2014 [place] .Hemoglobin Blood 13.0 .Hematocrit 37.9 .Urine Eosinophils Random 06/13/2014 [place] .Urine Eosinophils Random NONE SEEN .BUN 06/13/2014 [place] .BUN 18 .Creatinine-LC 06/13/2014 [place] .Creatinine-LC 1.27 .GFR-LC 06/13/2014 [place] .GFR-LC 58 High 20 .Sodium 06/13/2014 [place] .Sodium 138 .Potassium 06/13/2014 [place] .Potassium 4.4 .Chloride 06/13/2014 [place] .Chloride 103 .Carbon Dioxide 06/13/2014 [place] .Carbon Dioxide 27 .Renal Panel 05/30/2014 [facility] [phone] .Albumin 3.9 .Calcium 9.3 .Carbon Dioxide 27 .Chloride 101 .Creatinine-LC 1.41 .Potassium 3.6 .Sodium 136 .BUN 16 .GFR-LC 42 High 20 .GFR 51 High 20 .GFR 42 High 20 .Urinalysis-Rout ine 05/30/2014 [facility] [phone] Ua Specific Elgin 1.030 Ua PH Test Strip 5.0 Ua [...] Date Location Provider Dx Diagnosis Office Visit 06/14/2025 2:20p [facility] Heather Forbes M.D. N11.9 Chronic tubulo-interstitial nephritis, unspecified N18.31 Chronic kidney disea se, stage 3a Office Visit 05/13/2024 1:00p [facility] SHUKRI Sebastian N11.9 Chronic tubulo-interstitial nephritis, unspecified N18.31 Chronic kidney disea se, stage 3a Office Visit 05/18/2023 11:00a [facility] Jerica Stokes N11.9 Chronic tubulo-interstitial nephritis, unspecified N18.31 Chronic kidney disea se, stage 3a D50.9 Iron deficiency anem ia, unspecified E55.9 Vitamin D deficiency , unspecified Office Visit 05/23/2022 11:00a [facility] KikeJerica galindo N11.9 Chronic tubulo-interstitial nephritis, unspecified N18.31 Chronic kidney disea se, stage 3a D50.9 Iron deficiency anem ia, unspecified E55.9 Vitamin D deficiency , unspecified Office Visit 05/22/2021 1:30p [facility] Tequila Giles NP N11.9 Chronic tubulo-interstitial nephritis, unspecified N18.30 Chronic kidney disea se, stage 3 unspecified Office Visit 06/08/2020 11:20a [facility] Heather Forbes M.D. N11.9 Chronic tubulo-interstitial nephritis, unspecified N18.3 Chronic kidney disea se, stage 3 (moderate) Office Visit 06/22/2019 10:00a [place] [facility] Heather Forbes M.D. N11.9 Chronic tubulo-interstitial nephritis, unspecified N18.3 Chronic kidney disea se, stage 3 (moderate) Office Visit 05/04/2018 10:20a [facility] Heather Forbes M.D. N11.9 Chronic tubulo-interstitial nephritis, unspecified N18.3 Chronic kidney disea se, stage 3 (moderate) Office Visit 03/13/2017 2:00p [place] [facility] Heather Forbes M.D. N11.9 Chronic tubulo-interstitial nephritis, unspecified N18.3 Chronic kidney disea se, stage 3 (moderate) E78.1 Pure hyperglyceridem ia Office Visit 06/15/2015 1:00p [facility] Heather king M.D. 585.3 Chronic Kidney Disease Stage 3 582.89 Interstitial Nephrit is 530.81 Esophageal Reflux Office Visit 12/15/2014 1:00p [place] [facility] BRENDEN Boyer 585.3 Chronic Kidney Disease Stage 3 582.89 Interstitial Nephrit is V58.64 Shelter (Current)Us e Of Non-Steroid Antiinflammatories 530.81 Esophageal Reflux Office Visit 07/07/2014 11:40a [place] [facility] Heather high M.D. 585.3 Chronic Kidney Disease Stage 3 582.89 Interstitial Nephrit is V58.64 Shelter (Current)Us e Of Non-Steroid Antiinflammatories 530.81 Esophageal Reflux Office Visit 06/09/2014 1:00p [place] [facility] Matheus ngo 585.3 Chronic Kidney Disease Stage 3 582.89 Interstitial Nephrit is V58.64 Shelter (Current)Us e Of Non-Steroid Antiinflammatories 789.00 Pain Abdominal Unspe c Site Assessments Date Code Description Provider 06/14/2025 N11.9 Chronic tubulo-i nterstitial nephritis, unspecified Heather Kamadana M.D. 06/14/2025 N18.31 Chronic kidney disease, staenriqueta geronimo 3a Heather Forbes M.D. 05/13/2024 N11.9 Chronic tubulo-i nterstitial nephritis, unspecified SHUKRI Sebastian 05/13/2024 N18.31 Chronic kidney disease, joyce geronimo 3a SHUKRI Sebastian 05/18/2023 N11.9 Chronic tubulo-i nterstitial nephritis, unspecified Harshaw, Jerica 05/18/2023 N18.31 Chronic kidney disease, staenriqueta e 3a Harshaw, Jerica 05/18/2023 D50.9 Iron deficiency anemia, unsp ecified Harshaw, Jerica 05/18/2023 E55.9 Vitamin D deficiency, unspec ified Kike, Jerica 05/23/2022 N11.9 Chronic tubulo-i nterstitial nephritis, unspecified Kike, Jerica 05/23/2022 N18.31 Chronic kidney disease, stag e 3a Kike, Jerica 05/23/2022 D50.9 Iron deficiency anemia, unsp ecified Harshaw, Jerica 05/23/2022 E55.9 Vitamin D deficiency, unspec ified Kike, Jerica 05/22/2021 N11.9 Chronic tubulo-i nterstitial nephritis, unspecified Heather Benjaminadana M.D. 05/22/2021 N11.9 Chronic tubulo-i nterstitial nephritis, unspecified Tequila Giles NP 05/22/2021 N18.30 Chronic kidney disease, stag e 3 unspecified Heather Benjaminadana M.D. 05/22/2021 N18.30 Chronic kidney disease, stag e 3 unspecified Tequila N Wehr, GYM MANAGER 06/08/2020 N11.9 Chronic tubulo-i nterstitial nephritis, unspecified [...] Heather Kamadana M.D. 03/13/2017 E78.1 Pure hyperglyceridemia Swapn a Kamadana M.D. 06/15/2015 585.3 Chronic Kidney Disease Stage 3 Heather Kamadana M.D. 06/15/2015 582.89 Interstitial Nephritis Swapn a Kamadana M.D. 06/15/2015 530.81 Esophageal Reflux Heather Benjamin adana M.D. 12/15/2014 585.3 Chronic Kidney Disease Stage 3 Cheryl Palomo, CLOTH WEAVER 12/15/2014 582.89 Interstitial Nephritis Cheryl Palomo, CLOTH WEAVER 12/15/2014 V58.64 Shelter (Curren t)Use Of Non-Steroid Antiinflammatories Cheryl Palomo, CLOTH WEAVER 12/15/2014 530.81 Esophageal Reflux Cheryl liang, CLOTH WEAVER 07/07/2014 585.3 Chronic Kidney Disease Stage 3 Heather Kamadana M.D. 07/07/2014 582.89 Interstitial Nephritis Swapn a Kamadana M.D. 07/07/2014 V58.64 Shelter (Currmeir t)Use Of Non-Steroid Antiinflammatories Heather Forbes M.D. 07/07/2014 530.81 Esophageal Reflux Heather stevens M.D. 06/09/2014 585.3 Chronic Kidney Disease Stage 3 Doug Klein M.D. 06/09/2014 582.89 Interstitial Nephritis Kenroy Klein M.D. 06/09/2014 V58.64 Shelter (Curren t)Use Of Non-Steroid Antiinflammatories Doug Klein M.D. 06/09/2014 789.00 Pain Abdominal Unspec Site S yasmin Klein M.D.
--- OUTSIDE RECORDS SUMMARY | 2025-06-28 10:05 | XMS_ITS | Encounter Summary ---
Author Organization [facility] Address [address] [place] [address] Care Team Providers Care Community Advocate Name Role Phone Felipe Adam MD Primary Care Provider [phone] Encounter Details Date Type Department Care Team (Late st Contact Info) Description 05/01/2015 Abstract [facility] Bariatrics [address] [place] [phone] Hali Gallegos MA Social History Tobacco Use [...] Description 10/12/2025 10:30 AM EST Office Visit [facility] [address] [facility] [place] [address] Dimas Adair MD [facility] [address] [place] [phone] documented as of this encounter Visit Diagnoses Not on filedocumented in this encounter Care Teams Community Advocate Relationship Specialty Start Date End Date Back, MD Felipe [address] [id number] PCP - General Internal Medicine 03/26/15 documented as of this encounter
--- OUTSIDE RECORDS SUMMARY | 2025-06-28 10:05 | XMS_ITS | Clinical Summary ---
Author Organization [facility] Address [address] [place] [address] Care Team Providers Care Picker And Packer Name Role Phone Back, Alcides MELENDREZ Primary Care Provider [phone] Allergies No known active allergies Medications Cetirizine [...] (09/29/2017): Added automatically from request for surgery [id number] Basal cell carcinoma of skin of face [...] DISCUSSION 2019 COLORECTAL CANCER SCREENING DISCUSSION 2024 TETANUS 09/08/2024 09/08/2014 COVID-19 VACCINE (1 - 2023-2 5 season) 2025 INFLUENZA VACCINE (#1) 2025 TDAP (ADULT) Completed 09/08/2014 PNEUMOCOCCAL VACCINE SERIES Aged Out No longer eligible based on patient's age to complete this topic Insurance Care Teams Picker And Packer Relationship Specialty Start Date End Date Back, MD Alcides [address] [place] [address] PCP - General Internal Medicine 07/31/17
--- OUTSIDE RECORDS SUMMARY | 2025-06-28 10:05 | XMS_ITS | Encounter Summary ---
Author Organization [facility] Address [address] [place] [address] Care Team Providers Care Control Operator Name Role Phone Alcides Adam MD Primary Care Provider [phone] Reason for Visit * Reason Comments Med Refill Encounter Details Date Type Department Care Team (Late st Contact Info) Description 07/20/2023 Refill [facility] [address] [facility] [address] [facility] [address] [place] [address] Trace Casas MD [address] [facility] [address] [place] [id number] Idiopathic progressive polyneuropathy Social History Tobacco Use [...] Neurology [address] [place] [phone] Jennie Barajas, CHIEF OPERATING OFFICER-INDUSTRIAL AERIAL INSTALLER [address] [facility] [place], [place] [id number] documented as of this encounter Visit Diagnoses Diagnosis Idiopathic progressive polyneuropathy documented in this encounter Care Teams Control Operator Relationship Specialty Start Date End Date Back, MD Alcides [address] [place] [id number] PCP - General Family Medicine 12/08/24 documented as of this encounter
--- NOTE | 2025-06-28 10:06 | XR_ITS ---
The [address] [address] Patient Name: CHASTITY GASPAR MRN: [id number] date: 1980 Sex: F Assigned Patient Location: [facility] Current Patient Location: Accession/Order Number: [id number] Exam Date: 06/28/2025 10:17 Report Date: 06/28/2025 11:16 At the request of: DAMON PROCTOR Procedure: XR foot SHAHEEN min 3V Bilateral foot series 3 views each Reason for exam: Charcot's foot. COMPARISON: Foot series 04/25/2025. FINDINGS: Left foot demonstrates Charcot changes with hardware fixation similar to the prior study. No hardware complication is seen. Diffuse soft tissue swelling is noted. Stable linear radiopaque foreign body seen projecting over the region of the second and third metatarsals also unchanged. Plantar spurring. No definite acute bony process or plain film evidence of osteomyelitis. Right foot demonstrates soft tissue swelling. More mild Charcot changes are seen involving the midfoot when compared to the left foot. Findings are similar to the prior study. No definite acute bony process or plain film evidence of osteomyelitis. Plantar spurring. XR/XR foot SHAHEEN min 3V Impression: Overall, no significant change in foot findings compared to the prior study from 04/25/2025. No hardware complication is seen. Impression dictated by: Amber Bower Jr.OLori 06/28/2025 11:16 AM Dictation Location[facility] Electronically authenticated by: [id number] Y Date: 06/28/2025 11:16
--- OUTSIDE RECORDS SUMMARY | 2025-06-28 10:06 | XMS_ITS | Clinical Summary ---
Author Organization [facility] Address [address] [place] [address] Care Team Providers Care Bobbin Marker Name Role Phone Alcides Adam MD Primary Care Provider [phone] Allergies Active Allergy Reactions Criticality Noted Date [...] DAYS 60 tablet 3 05/24/20 25 Active Active Problems Problem Noted Date Diagnosed [...] Orders: Ambulatory referral to Neurology Epidural abscess ([facility]) 08/20/2018 Septic arthritis 08/20/2018 Abdominal pain 05/04/2018 Pure hyperglyceridemia 05/04/2018 Pyelonephritis 05/04/2018 Neoplasm of uncertain behavior of skin 8 Peripheral neuropathy 12/01/2017 Basal cell carcinoma of skin of face 09/16/2017 Overview (03/08/2023): Added automatically from request for surgery [id number] Overview: Added automatically from request for surgery [id number] Mixed hyperlipidemia 03/19/2017 Carpal tunnel syndrome of [...] Ancillary Procedure [facility] [address] [place] [phone] Cervical paraspinal muscle spasm 05/24/2025 11:30 AM EDT Office Visit [facility] [address] [place] [phone] Jennie Barajas, WAX MACHINE OPERATOR-PERFUSIONIST BUCK (obstructive sleep apnea) (Primary Dx); Cervical paraspinal muscle spasm; Cervical radiculopathy 05/24/2025 Telephone [facility] [address] [place] [phone] Gauri Jay MA TENS 05/24/2025 Bamboo flowsheet [facility] [address] [place] [address] Jennie Barajas, WAX MACHINE OPERATOR-PERFUSIONIST 05/24/2025 Travel 05/23/2025 Telephone [facility] [address] [facility] [address] [place] [address] Nash Block MD 04/20/2025 12:45 PM EDT Office Visit [facility] [address] [place] [address] Robbin Wasserman, DPM MRSA (methicillin resistant staph aureus) culture positive (Primary Dx); Right foot pain; Skin ulcer of toe of right foot with fat layer exposed (HCC); Idiopathic progressive polyneuropathy; Infection of toe; Charcot arthropathy of midfoot; Ulcer of left foot, limited to breakdown of skin (HCC); Closed nondisplaced fracture of second metatarsal bone of right foot, initial encounter 04/20/2025 Bamboo flowsheet [facility] [address] [place] [phone] Robbin Wasserman DPM 04/20/2025 Travel 04/19/2025 Travel 04/12/2025 Results Follow-Up [facility] [address] [place] [phone] Robbin Wasserman DPM MRI FOOT RIGHT W WO CONTRAST 04/12/2025 Clinisync Result Encounter [facility] External Department Unsolicited Robbin Wasserman DPM 04/11/2025 Telephone [facility] [address] [place] [address] Robbin Wasserman DPM 04/11/2025 Clinisync Result Encounter [facility] External Department Unsolicited Robbin Wasserman DPM 04/06/2025 5:10 PM EDT Ancillary Procedure [facility] [address] [place] [phone] 04/06/2025 4:30 PM EDT Office Visit [facility] [address] [place] [phone] Robbin Wasserman DPM Right foot pain (Primary Dx); Skin ulcer of toe of right foot with fat layer exposed (HCC); Infection of toe; Idiopathic progressive polyneuropathy; Generalized edema 04/06/2025 Bamboo flowsheet [facility] [address] [place] [phone] Robbin Wasserman DPM 04/06/2025 Travel from Last 3 Months Family History [...] Neurology [address] [place] [address] Jennie Barajas APRN-[facility] [address] [facility] [place] [address] Procedures Procedure Name Priority Date/Time Associated Diagnosis [...] abnormality. ELECTRONICALLY SIGNED BY: Gregorio Davila DO Jennie Barajas WAX MACHINE OPERATOR-PERFUSIONIST IMG XR PROCEDURES Lou l Result * [...] Mcarthur MD 04/12/25 Final result Robbin Wasserman [facility] Final Result * (ABNORMAL) MHPT [...] AM EDT Original Ordering Provider: ROBBIN WASSERMAN us Robbin Wasserman DPM [facility] Final R esult [facility] MHPT * XR foot 1 or 2 views right (04/06/2025 5:06 PM EDT) Anatomical Region Laterality Modality Lower Extremities, Foot Right Radiogra phic Imaging Narrative 04/10/2025 9:41 AM EDT Imaging Result: XRAY RIGHT FOOT: AP/OBL- No fx. Lis franc diastasis concern with deformity. DP 2 mild cortical disruption 1-2mm possible. No bone density changes us Robbin Wasserman DPM IMG XR PROCEDURES Final Result from Last 3 Months Insurance [facility] Care Teams Bobbin Marker Relationship Specialty Start Date End Date Back, MD Alcides [address] [place] [id number] PCP - General Family Medicine 12/08/24
--- OUTSIDE RECORDS SUMMARY | 2025-06-28 10:11 | XMS_ITS | CCD ---
Author Organization [facility] Care Team Providers Care Manager Corporate Name Role Phone Back, Felipe Unavailable Unavailable [...] Care Unavailable Back, Felipe Primary Care Provider [phone] Back, Felipe Primary Care Provider [phone] Back, Felipe Primary Care Provider Unavailabl e Back , Felipe Primary Care Provider Back , Felipe Primary Care Provider Back , Felipe Primary Care Provider [phone] BACK, FELIPE Primary Care Unavailable MUTNAL, AMAR Admitting Unavailable MUTNAL, AMAR Attending Unavailable Back , Felipe Primary Care Provider NON STAFF Primary Care Provider UnavailMD Tiffanie Mixon. Attending Provider [phone] Back , Felipe Primary Care Provider YOON COBB Referring Unavailable BACK, FELIPE Primary Care Unavailable Back , Felipe Primary Care Provider KALPESH ARENAS Attending Unavail able BACK, FELIPE Primary Care Unavailable Back , Felipe Primary Care Provider FRANCES HARRIS Admitting Unavailable FRANCES HARRIS Attending Unavailable FRANCES HARRIS Consulting Unavailable FRANCES HARRIS Admitting Unavailable FRANCES HARRIS Attending Unavailable [facility], DR PIPER Ackerman Consulting Unavailable FRANCES HARRIS Consulting Unavailable FRANCES HARRIS Admitting Unavailable FRANCES HARRIS Attending Unavailable [place], DR EMILY Riojas Consulting Unavailable FRANCES HARRIS Consulting Unavailable Back , Felipe Primary Care Provider BACK, FELIPE Primary Care Unavailable ROBBIN SHOOK II Attending Un available Back , Felipe Primary Care Provider INDER Harris Attending Provider [phone] Frances Harris Attending Unavailable Frances Harris Admitting Unavailable Unavailable Primary Care Provider Unavailabl e BACK FELIPE Referring Unavailable BACK, FELIPE Primary Care Unavailable BACK, FELIPE Admitting Unavailable SHERMAN ADAIR Attending Unavailable Back , [facility] Primary Care Provider FOZIA MENG Attending Unavailable LYNN BLOCK Attending Unavailable FOZIA MENG Referring Unavailable TIFFANIE CASAS Attending Unavailable LYNN BLOCK Attending Unavailable ROBBIN SÁNCHEZ Attending Unavailabl e ROBIBN SÁNCHEZ Referring Unavailabl e ROBBIN SÁNCHEZ Attending [...] sources) Chlorhexidine; Translations: [CHLORHEXIDINE] Drug Allergy 3 [facility] (11 sources) topiramate; Translations: [TOPIRAMATE] Drug Allergy 4 Other (See Comments) [facility] (20 sources) Topiramate Propensity to adverse reactions 4 [facility] (1 source) Chlorhexidine; Translations: [Chlorhexidine Gluconate] Drug Allergy [facility] Repository Medications Current Medications Medication Drug [...] Start: 08-07-2022 take 1 capsule by mo [facility] once daily as needed for [...] oral tablet (1 source) alpha-Adrenergic Agonist, Uncompetitive A-kcdmkq-B-aspartate Receptor Antagonist, Sigma-1 Agonist Start: End: take 1 tablet by mouth every six hours as needed Odswaqnljsxzxys-ON-EO (CAPMIST DM) 60-15-400 MG TABS Take 1 [...] (BMI) of 38.0 to 38.9 in adult ([facility]) Take 1 tablet by mouth [...] (BMI) of 40.0 to 44.9 in adult ([facility]) Take 1 capsule by mouth [...] 08-25-2018 take 1 capsule by mo [facility] three times daily pregabalin (LYRICA) 150 MG capsule Indications: Epidural abscess , Discitis of thoracic region , Infection of thoracic spine ([facility]) , Peripheral polyneuropathy Take 1 [...] 07-30-2020 take 2 tablets by mo [facility] once daily sertraline (ZOLOFT) 100 MG tablet Take 2 tablets by mouth daily Currently decreasing this medication 07/30/2020 Active Start: 07-30-2020 [facility] sertraline (ZOLOFT) 100 MG tablet Take 100 mg by mouth daily Currently decreasing this medication 0 07/30/2020 Active Start: 07-06-2019 take 2 tablets by mo [facility] once daily sertraline (ZOLOFT) 50 [...] of skin] Onset: 02-05-2018 08-03-2017 Episodic Other [employer] infection and poliomyelitis (20 sources) Extradural and [...] [Mass/Vol] 52.4 mg/dL 28.0 - 217.0 mg/dL [facility] Comment on above: Reference range defi radha for 1st morning urine Creatinine,Random Uron 06-12 Creatinine [Mass/Vol] 52.4 mg/dL Normal 28.0-217.0 [facility] Comment on above: Result Comment: Refe rence range defined for 1st morning urine Performed By: #### U RTP, URCRE, PTHNCA, VD25 ####[facility] [address] [place], [place] [id number] Lab Director: Placido Pierce MD#### RENP ####[facility] Lty[address] [place], [place] [id number] Lab Director: Emily George MD No Panel Informationon 06-12 [facility] PTH, Intacton 06-12-2025 Parathyrin.intact [Mass/Vol] 40.0 pg/mL 17.9 - 58.6 pg/mL [facility] PTH, Intact 40.0 pg/mL Normal 17.9-58.6 [facility] Comment on above: Performed By: #### U RTP, URCRE, PTHNCA, VD25 ####[facility] [address] [place], [place] [id number] Lab Director: Placido Pierce MD#### RENP ####[facility] Oqb3840 [place], [place] [phone] lab Director: Emily George MD Protein, urine, randomon Protein (U) [Mass/Vol] mg/dL mg/dL [facility] Comment on above: No normal range esta blished. Protein,Tot,[place] Uron 2024 Tot Prot. Conc. <4 Normal [facility] Comment on above: Result Comment: No n ormal range established. Performed By: #### U RTP, URCRE, PTHNCA, VD25 ####[facility] [address]va[address] [place], [place] [id number] lab Director: Placido Pierce MD#### RENP ####[facility] Joc7093 [place], [place] [id number] lab Director: Emily George MD Renal Function Panelon 06-12 Albumin [Mass/Vol] 4.2 g/dL 3.5 - 5.2 g/dL [facility] Anion gap [Moles/Vol] 12 mmol/L 9 - 17 mmol/L [facility] Calcium [Mass/Vol] 9.2 mg/dL 8.6 - 10. 4 mg/dL [facility] Chloride [Moles/Vol] 99 mmol/L 98 - 10 7 mmol/L [facility] CO2 [Moles/Vol] 24 mmol/L 20 - 31 mmol/L [facility] Creatinine [Mass/Vol] 1.3 mg/dL High 0.5 - 0.9 mg/dL [facility] Est, Glom Filt Rate 51 Low - PINF [facility] Comment on above: These results are [...] 110 mg/dL High 70 - 99 mg/dL [facility] Interpretation and review of laboratory results Abnormal [facility] Phosphate [Mass/Vol] 3.9 mg/dL 2.6 - 4 .5 mg/dL [facility] Potassium [Moles/Vol] 4.5 mmol/L 3.7 - 5.3 mmol/L [facility] Sodium [Moles/Vol] 135 mmol/L 135 - 144 mmol/L [facility] Urea nitrogen [Mass/Vol] 23 mg/dL High 6 - 20 mg/dL [facility] Albumin [Mass/Vol] 4.2 g/dL Normal 3.5-5.2 [facility] Comment on above: Performed By: #### U RTP, URCRE, PTHNCA, VD25 ####[facility] [address] [place] [address] Lab Director: Placido Pierce MD#### RENP ####[facility] Yrk7096 [place] [address] Lab Director: Emily George MD Anion gap [Moles/Vol] 12 mmol/L Normal 9-17 [facility] Comment on above: Performed By: #### U RTP, URCRE, PTHNCA, VD25 ####[facility] [address]av[address] [place], [place] [id number] Lab Director: Placido Pierce MD#### RENP ####[facility] [address] [place] [address] Lab Director: Emily George MD Calcium [Mass/Vol] 9.2 mg/dL Normal 8.6-10.4 [facility] Comment on above: Performed By: #### U RTP, URCRE, PTHNCA, VD25 ####[facility] [address] [place], [place] [id number] Lab Director: Placido Pierce MD#### RENP ####[facility] Ibl9876 [place] [address] Lab Director: Emily George MD Chloride [Moles/Vol] 99 mmol/L Normal 98-107 [facility] Comment on above: Performed By: #### U RTP, URCRE, PTHNCA, VD25 ####[facility] [address] [place], [place] [address])[phone] Director: Placido Pierce MD#### RENP ####[facility] Exz0642 [place] [address]([facility])[phone] Director: Emily George MD CO2 [Moles/Vol] 24 mmol/L Normal 20-31 [facility] Comment on above: Performed By: #### U RTP, URCRE, PTHNCA, VD25 ####[address] [place] [address] Lab Director: Placido Pierce MD#### RENP ####[facility] Bst20[address] [place] [address] Lab Director: Emily George MD Creatinine [Mass/Vol] 1.3 mg/dL High 0.5-0.9 [facility] Comment on above: Performed By: #### U RTP, URCRE, PTHNCA, VD25 ####[address] [address] Lab Director: Placido Pirece MD#### RENP ####[facility] [address]ja[address] [place] [phone] Lab Director: Emily George MD GFR/1.73 sq M.predicted among non-blacks MDRD (S/P/Bld) [Vol rate/Area] 51 mL/min/{1.73_m2} Low >[address] [facility] Comment on above: Result Comment: These [...] By: #### U RTP, URCRE, PTHNCA, VD25 ####[facility] [address]50[address] [place] [address] Lab Director: Placido Pierce MD#### RENP ####[facility] Ryq4[address] [place], [place] [address])[phone] Director: Emily George MD Glucose [Mass/Vol] 110 mg/dL High 70-99 [facility] Comment on above: Performed By: #### U RTP, URCRE, PTHNCA, VD25 ####[address] [address])[phone] Director: Placido Pierce MD#### RENP ####[facility] Jmf3073 [place], [place] [address])[phone] Director: Emily George MD Phosphorus, Inorg. 3.9 mg/dL Normal 2.6-4.5 [facility] Comment on above: Performed By: #### U RTP, URCRE, PTHNCA, VD25 ####[facility] [address] [place] [address] Lab Director: Placido Pierce MD#### RENP ####[facility] Iaj8318 [place], [place] [address])[phone] Director: Emily George MD Potassium [Moles/Vol] 4.5 mmol/L Normal 3.7-5.3 [facility] Comment on above: Performed By: #### U RTP, URCRE, PTHNCA, VD25 ####[facility] [address]kl[address] [place] [address] lab Director: Placido Pierce MD#### RENP ####[facility] K[address] [place] [address] lab Director: Emily George MD Sodium [Moles/Vol] 135 mmol/L Normal 135-144 [facility] Comment on above: Performed By: #### U RTP, URCRE, PTHNCA, VD25 ####[facility] [address] [place] [address] lab Director: Placido Pierce MD#### RENP ####[facility] [address] [place], [place] [phone] lab Director: Emily George MD Urea nitrogen [Mass/Vol] 23 mg/dL High 6-20 [facility] Comment on above: Performed By: #### U RTP, URCRE, PTHNCA, VD25 ####[address] [address] lab Director: Placido Pierce MD#### RENP ####[facility] Ott8392 [place] [address] lab Director: Emily George MD Vitamin D 25 Hydroxyon 06-12 25-hydroxyvitamin D3 [Mass/Vol] 29.2 ng/mL Low 30.0 - 100.0 ng/mL [facility] Comment on above: Reference Range: Vitamin D status Range Deficiency <20 ng/mL Mild Deficiency 20-30 ng/mL Sufficiency 30-100 ng/mL Toxicity >100 ng/mL Interpretation and review of laboratory results Abnormal [facility] Vitamin D 25 OHon 06-12-2025 Vitamin D 25 [place] 29.2 ng/mL Low 30.0-100.0 [facility] Comment on above: Result Comment: Reference Range: Vitamin D status Range Deficiency <20 ng/mL Mild Deficiency 20-30 ng/mL Sufficiency 30-100 ng/mL Toxicity >100 ng/mL Performed By: #### U RTP, URCRE, PTHNCA, VD25 ####[facility] [address] [place] [address] Lab Director: Placido Pierce MD#### RENP ####[facility] Scj[address] [place], [place] [phone] lab Director: Emily George MD XR CERVICAL [...] 9 - 17 mmol/L [facility] Calcium [Mass/Vol] 9.3 mg/dL 8.6 - 10. 4 mg/dL [facility] Chloride [Moles/Vol] 104 mmol/L 98 - 10 7 mmol/L [facility] CO2 [Moles/Vol] 22 mmol/L 20 - 31 mmol/L [facility] Creatinine [Mass/Vol] 1.3 mg/dL High 0.5 - 0.9 mg/dL [facility] Est, Glom Filt Rate 52 Low - PINF [facility] Comment on above: These results are [...] 131 mg/dL High 70 - 99 mg/dL [facility] Potassium [Moles/Vol] 4.4 mmol/L 3.7 - 5.3 mmol/L [facility] Sodium [Moles/Vol] 138 mmol/L 135 - 144 mmol/L [facility] Urea nitrogen [Mass/Vol] 17 mg/dL 6 - 20 mg/dL [facility] Basic Metabolic Profon 05-15 Anion gap [Moles/Vol] 12 mmol/L Normal 9-17 [facility] Comment on above: Performed By: #### S ED, MORPHX, CRP, BMP, CBC ####[facility] R[address]2668 [place], [place] [id number] lab Director: Emily George MD Calcium [Mass/Vol] 9.3 mg/dL Normal 8.6-10.4 [facility] Comment on above: Performed By: #### S ED, MORPHX, CRP, BMP, CBC ####[facility] [address] [place] [address] lab Director: Emily George MD Chloride [Moles/Vol] 104 mmol/L Normal 98-107 [facility] Comment on above: Performed By: #### S ED, MORPHX, CRP, BMP, CBC ####[facility] F[address] RdForsyth Dental [place] [address] lab Director: Emily George MD CO2 [Moles/Vol] 22 mmol/L Normal 20-31 [facility] Comment on above: Performed By: #### S ED, MORPHX, CRP, BMP, CBC ####[facility] Qjp[address] [place] [address] lab Director: Emily George MD Creatinine [Mass/Vol] 1.3 mg/dL High 0.5-0.9 [facility] Comment on above: Performed By: #### S ED, MORPHX, CRP, BMP, CBC ####[facility] Hyp9315 [place] [address] lab Director: Emily George MD GFR/1.73 sq M.predicted among non-blacks MDRD (S/P/Bld) [Vol rate/Area] 52 mL/min/{1.73_m2} Low >[address] [facility] Comment on above: Result Comment: These [...] #### S ED, MORPHX, CRP, BMP, CBC ####[facility] Tle2864 [place] [address] lab Director: Emily George MD Glucose [Mass/Vol] 131 mg/dL High 70-99 [facility] Comment on above: Performed By: #### S ED, MORPHX, CRP, BMP, CBC ####[facility] Gft6979 [place] [address] lab Director: Emily George MD Potassium [Moles/Vol] 4.4 mmol/L Normal 3.7-5.3 [facility] Comment on above: Performed By: #### S ED, MORPHX, CRP, BMP, CBC ####[facility] Rzq1629 [place] [address] lab Director: Emily George MD Sodium [Moles/Vol] 138 mmol/L Normal 135-144 [facility] Comment on above: Performed By: #### S ED, MORPHX, CRP, BMP, CBC ####[facility] Ijr5737 [place] [address] lab Director: Emily George MD Urea nitrogen [Mass/Vol] 17 mg/dL Normal 6-20 [facility] Comment on above: Performed By: #### S ED, MORPHX, CRP, BMP, CBC ####[facility] Pfj2305 [place] [address] lab Director: Emily George MD C-Reactive Proteinon CRP High sensitivity method [Mass/Vol] 6.2 mg/L High 0.0 - 5.0 mg/L [facility] CRP [Mass/Vol] 6.2 mg/L High 0.0-5.0 [facility] Comment on above: Performed By: #### S ED, MORPHX, CRP, BMP, CBC ####[facility] Sqs4959 [place] [address] lab Director: Emily George MD CBCon 05-15-2025 Erythrocyte distribution width (RBC) [Ratio] 19.4 % High 12.1 - 15.2 % [facility] Hematocrit (Bld) [Volume fraction] 32.3 % Low 36.0 - 46.0 % [facility] Hemoglobin (Bld) [Mass/Vol] 9.9 g/dL Low 12.0 - 16.0 g/dL [facility] Interpretation and review of laboratory results Abnormal [facility] MCH (RBC) [Entitic mass] 28.0 pg 26.0 - 34.0 pg [facility] MCHC (RBC) [Mass/Vol] 30.7 g/dL Low 31.0 - 37.0 g/dL [facility] MCV (RBC) [Entitic vol] 91.2 fL 80.0 - 100.0 fL [facility] Platelet mean volume (Bld) [Entitic vol] 11.7 fL 6.0 - 12.0 fL [facility] Platelets (Bld) [#/Vol] 154 10*3/uL [facility] RBC (Bld) [#/Vol] 3.54 10*6/uL Low 4.00 - 5.2 0 m/uL [facility] WBC other (Bld) [#/Vol] 3.8 [facility] Erythrocyte distribution width (RBC) [Ratio] 19.4 % High 12.1-15.2 [facility] Comment on above: Performed By: #### S ED, MORPHX, CRP, BMP, CBC ####[facility] [address] [place] [address] Lab Director: Emily George MD Hematocrit (Bld) [Volume fraction] 32.3 % Low 36.0-46.0 [facility] Comment on above: Performed By: #### S ED, MORPHX, CRP, BMP, CBC ####[facility] Dkj[address] [place] [address] Lab Director: Emily George MD Hemoglobin (Bld) [Mass/Vol] 9.9 g/dL Low 12.0-16.0 [facility] Comment on above: Performed By: #### S ED, MORPHX, CRP, BMP, CBC ####[facility] Hkl[address] [place] [address] Lab Director: Emily George MD MCH (RBC) [Entitic mass] 28.0 pg Normal 26.0-34.0 [facility] Comment on above: Performed By: #### S ED, MORPHX, CRP, BMP, CBC ####[facility] V[address] [place] [address] Lab Director: Emily George MD MCHC (RBC) [Mass/Vol] 30.7 g/dL Low 31.0-37.0 [facility] Comment on above: Performed By: #### S ED, MORPHX, CRP, BMP, CBC ####[facility] Q[address] [place] [address] Lab Director: Emily George MD MCV (RBC) [Entitic vol] 91.2 fL Normal 80.0-100.0 [facility] Comment on above: Performed By: #### S ED, MORPHX, CRP, BMP, CBC ####[facility] Wos[address] [place] [address] Lab Director: Emily George MD Platelet mean volume (Bld) [Entitic vol] 11.7 fL Normal 6.0-12.[address] [facility] Comment on above: Performed By: #### S ED, MORPHX, CRP, BMP, CBC ####[facility] Bxk[address] [place] [address] Lab Director: Emily George MD Platelets (Bld) [#/Vol] 154 10*3/uL Normal 140-450 [facility] Comment on above: Performed By: #### S ED, MORPHX, CRP, BMP, CBC ####[facility] S[address] [place], [place] [id number] Director: Emily George MD RBC (Bld) [#/Vol] 3.54 10*6/uL Low 4.00-5.20 [facility] Comment on above: Performed By: #### S ED, MORPHX, CRP, BMP, CBC ####[facility] Cww[address] [place] [place], [place] [phone] Director: Emily George MD WBC (Bld) [#/Vol] 3.8 10*3/uL Normal 3.5-11.0 [facility] Comment on above: Performed By: #### S ED, MORPHX, CRP, BMP, CBC ####[facility] Jyr[address] [place] [address] Lab Director: Emily George MD MORPHOLOGY CHECKon 5 Morphology Rehan (Bld) [Interp] MODERATE ANISOCYTOSIS [facility] Morphology Checkon 5 Morphology Rehan (Bld) [Interp] MODERATE Normal [facility] Comment on above: Result Comment: ANIS OCYTOSIS Performed By: #### S ED, MORPHX, CRP, BMP, CBC ####[facility] [address] [place], [place] [phone] Director: Emily George MD No Panel Informationon 05-15 Interpretation and review of laboratory results Abnormal [facility] Sedimentation Rateon 025 Sedimentation Rate 19 mm/Hr Normal 0-20 [facility] Comment on above: Performed By: #### S ED, MORPHX, CRP, BMP, CBC ####[facility] [address] [place], [place] [phone] Director: Emily George MD ESR Photometric method (Bld) [Velocity] 19 [facility] Comp Metabolic Profon 2024 Albumin [Mass/Vol] 4.2 g/dL Normal 3.5-5.2 [facility] Comment on above: Performed By: #### L IPR, GLYHGB #### [facility] [address] [place] [address] Nurse Outreach Case Manager: Placido Pierce MD #### CP #### [facility] [address] [place] [address] Nurse Outreach Case Manager: Emily George MD #### INSU #### [facility] [address] [place] [address] Nurse Outreach Case Manager: Placido Pierce MD [facility] [address] [place] [address] Nurse Outreach Case Manager: Emily George MD Albumin/Glob Ratio 1.4 Normal 1.0-2.5 [facility] Comment on above: Performed By: #### L IPR, GLYHGB #### [facility] [address] [place] [address] Nurse Outreach Case Manager: Placido Pierce MD #### CP #### [facility] [address] [place] [address] Nurse Outreach Case Manager: Emily George MD #### INSU #### [facility] [address] [place] [address] Nurse Outreach Case Manager: Placido Pierce MD [facility] [address] [place] [address] Nurse Outreach Case Manager: Emily George MD Alkaline Phos 109 U/L High 35-104 [facility] Comment on above: Performed By: #### L IPR, GLYHGB #### [facility] [address] [place] [address] Nurse Outreach Case Manager: Placido Pierce MD #### CP #### [facility] [address] [place] [address] Nurse Outreach Case Manager: Emily George MD #### INSU #### [address] [address] Nurse Outreach Case Manager: Placido Pierce MD [facility] [address] [place] [address] Nurse Outreach Case Manager: Emily George MD ALT [Catalytic activity/Vol] 23 U/L Normal 5-33 [facility] Comment on above: Performed By: #### L IPR, GLYHGB #### [address] [address] Nurse Outreach Case Manager: Placido Pierce MD #### CP #### [facility] [address] [place] [address] Nurse Outreach Case Manager: Emily George MD #### INSU #### [facility] [address] [place] [address] Nurse Outreach Case Manager: Placido Pierce MD [facility] [address] [place] [address] Nurse Outreach Case Manager: Emily George MD Anion gap [Moles/Vol] 14 mmol/L Normal 9-17 [facility] Comment on above: Performed By: #### L IPR, GLYHGB #### [facility] [address] [place] [address] Nurse Outreach Case Manager: Placido Pierce MD #### CP #### [facility] [address] [place] [address] Nurse Outreach Case Manager: Emily George MD #### INSU #### [address] [address] Nurse Outreach Case Manager: Placido Pierce MD [facility] [address] [place] [address] Nurse Outreach Case Manager: Emily George MD AST [Catalytic activity/Vol] 22 U/L Normal <32 [facility] Comment on above: Performed By: #### L IPR, GLYHGB #### [address] [address] Nurse Outreach Case Manager: Placido Pierce MD #### CP #### [facility] [address] [place] [address] Nurse Outreach Case Manager: Emily George MD #### INSU #### [address] [address] Nurse Outreach Case Manager: Placido Pierce MD [facility] [address] [place] [address] Nurse Outreach Case Manager: Emily George MD Bilirubin [Mass/Vol] 0.5 mg/dL Normal 0.3-1.2 [facility] Comment on above: Performed By: #### L IPR, GLYHGB #### [address] [address] Nurse Outreach Case Manager: Placido Pierce MD #### CP #### [facility] [address] [place] [address] Nurse Outreach Case Manager: Emily George MD #### INSU #### [facility] [address] [place] [address] Nurse Outreach Case Manager: Placido Pierce MD [facility] [address] [place] [address] Nurse Outreach Case Manager: Emily George MD Calcium [Mass/Vol] 9.4 mg/dL Normal 8.6-10.4 [facility] Comment on above: Performed By: #### L IPR, GLYHGB #### [address] [address] Nurse Outreach Case Manager: Placido Pierce MD #### CP #### [facility] [address] [place] [address] Nurse Outreach Case Manager: Emily George MD #### INSU #### [address] [address] Nurse Outreach Case Manager: Placido Pierce MD [facility] [address] [place] [address] Nurse Outreach Case Manager: Emily George MD Chloride [Moles/Vol] 99 mmol/L Normal 98-107 [facility] Comment on above: Performed By: #### L IPR, GLYHGB #### [address] [address] Nurse Outreach Case Manager: Placido Pierce MD #### CP #### [facility] [address] [place] [address] Nurse Outreach Case Manager: Emily George MD #### INSU #### [address] [address] Nurse Outreach Case Manager: Placido Pierce MD [facility] [address] [place] [address] Nurse Outreach Case Manager: Emily George MD CO2 [Moles/Vol] 26 mmol/L Normal 20-31 [facility] Comment on above: Performed By: #### L IPR, GLYHGB #### [facility] [address] [place] [address] Nurse Outreach Case Manager: Placido Pierce MD #### CP #### [facility] [address] [place] [address] Nurse Outreach Case Manager: Emily George MD #### INSU #### [facility] [address] [place] [address] Nurse Outreach Case Manager: Placido Pierce MD [facility] [address] [place] [address] Nurse Outreach Case Manager: Emily George MD Creatinine [Mass/Vol] 1.4 mg/dL High 0.5-0.9 [facility] Comment on above: Performed By: #### L IPR, GLYHGB #### [facility] [address] [place] [address] Nurse Outreach Case Manager: Placido Pierce MD #### CP #### [facility] [address] [place] [address] Nurse Outreach Case Manager: Emily George MD #### INSU #### [address] [address] Nurse Outreach Case Manager: Placido Pierce MD [facility] [address] [place] [address] Nurse Outreach Case Manager: Emily George MD GFR/1.73 sq M.predicted among non-blacks MDRD (S/P/Bld) [Vol rate/Area] 47 mL/min/{1.73_m2} Low >[address] [facility] Comment on above: Result Comment: These [...] Performed By: #### L IPR, GLYHGB #### [facility] [address] [place] [address] Nurse Outreach Case Manager: Placido Pierce MD #### CP #### [facility] [address] [place] [address] Nurse Outreach Case Manager: Emily George MD #### INSU #### [facility] [address] [place] [address] Nurse Outreach Case Manager: Placido Pierce MD [facility] [address] [place] [address] Nurse Outreach Case Manager: Emily George MD Glucose [Mass/Vol] 114 mg/dL High 70-99 [facility] Comment on above: Performed By: #### L IPR, GLYHGB #### [address] [address] Nurse Outreach Case Manager: Placido Pierce MD #### CP #### [facility] [address] [place] [address] Nurse Outreach Case Manager: Emily George MD #### INSU #### [address] [address] Nurse Outreach Case Manager: Placido Pierce MD [facility] [address] [place] [address] Nurse Outreach Case Manager: Emily George MD Potassium [Moles/Vol] 4.1 mmol/L Normal 3.7-5.3 [facility] Comment on above: Performed By: #### L IPR, GLYHGB #### [facility] [address] [place] [address] Nurse Outreach Case Manager: Placido Pierce MD #### CP #### [facility] [address] [place] [address] Nurse Outreach Case Manager: Emily George MD #### INSU #### [address] [address] Nurse Outreach Case Manager: Placido Pierce MD [facility] [address] [place] [address] Nurse Outreach Case Manager: Emily George MD Protein [Mass/Vol] 7.2 g/dL Normal 6.4-8.3 [facility] Comment on above: Performed By: #### L IPR, GLYHGB #### [address] [address] Nurse Outreach Case Manager: Placido Pierce MD #### CP #### [facility] [address] [place] [address] Nurse Outreach Case Manager: Emily George MD #### INSU #### [address] [address] Nurse Outreach Case Manager: Placido Pierce MD [facility] [address] [place] [address] Nurse Outreach Case Manager: Emily George MD Sodium [Moles/Vol] 139 mmol/L Normal 135-144 [facility] Comment on above: Performed By: #### L IPR, GLYHGB #### [address] [address] Nurse Outreach Case Manager: Placido Pierce MD #### CP #### [facility] [address] [place] [address] Nurse Outreach Case Manager: Emily George MD #### INSU #### [address] [address] Nurse Outreach Case Manager: Placido Pierce MD [facility] [address] [place] [address] Nurse Outreach Case Manager: Emily George MD Urea nitrogen [Mass/Vol] 18 mg/dL Normal 6-20 [facility] Comment on above: Performed By: #### L IPR, GLYHGB #### [address] [place], [place] [phone] Nurse Outreach Case Manager: Placido Pierce MD #### CP #### [facility] [address] [place], [place] [phone] Nurse Outreach Case Manager: Emily George MD #### INSU #### [facility] [address] [place], [place] [phone] Nurse Outreach Case Manager: Placido Pierce MD [facility] [address] [place], [place] [phone] Nurse Outreach Case Manager: Emily George MD Comprehensive Metabolic Pane [facility] 04-14-2025 Albumin [Mass/Vol] 4.2 g/dL 3.5 - 5.2 g/dL [facility] Albumin/Globulin [Mass ratio] 1.4 {ratio} 1.0 - 2.5 [facility] ALP [Catalytic activity/Vol] 109 U/L High 35 - 104 U/L [facility] ALT [Catalytic activity/Vol] 23 U/L 5 - 33 U/L [facility] Anion gap [Moles/Vol] 14 mmol/L 9 - 17 mmol/L [facility] AST [Catalytic activity/Vol] 22 U/L NINF - 32 U/L [facility] Bilirubin [Mass/Vol] 0.5 mg/dL 0.3 - 1 .2 mg/dL [facility] Calcium [Mass/Vol] 9.4 mg/dL 8.6 - 10. 4 mg/dL [facility] Chloride [Moles/Vol] 99 mmol/L 98 - 10 7 mmol/L [facility] CO2 [Moles/Vol] 26 mmol/L 20 - 31 mmol/L [facility] Creatinine [Mass/Vol] 1.4 mg/dL High 0.5 - 0.9 mg/dL [facility] Est, Glom Filt Rate 47 Low - PINF [facility] Comment on above: These results are [...] 114 mg/dL High 70 - 99 mg/dL [facility] Interpretation and review of laboratory results Abnormal [facility] Potassium [Moles/Vol] 4.1 mmol/L 3.7 - 5.3 mmol/L [facility] Protein [Mass/Vol] 7.2 g/dL 6.4 - 8.3 g/dL [facility] Sodium [Moles/Vol] 139 mmol/L 135 - 144 mmol/L [facility] Urea nitrogen [Mass/Vol] 18 mg/dL 6 - 20 mg/dL [facility] Hemoglobin A1Con 04-14-2025 Average glucose Estimated from glycated hemoglobin (Bld) [Mass/Vol] 123 mg/dL [facility] Comment on above: The ADA and AACC rec ommend providing the estimated average glucose result to permit better patient understanding of their HBA1c result. HbA1c (Bld) [Mass fraction] 5.9 % 4.0 - 6.0 % [facility] Glucose [Mass/Vol] 123 mg/dL Normal [facility] Comment on above: Result Comment: The ADA and AACC recommend providing the estimated average glucose result to permit better patient understanding of their HBA1c result. Performed By: #### L IPR, GLYHGB ####[facility] [address] [place] [address] Lab Director: Placido Pierce MD#### CP ####[facility] [address] [place], [place] [phone] Lab Director: Emily George MD#### INSU ####[facility] [place] [address] Lab Director: [facility] [address], [place] [phone] Lab Director: Emily George MD HbA1c (Bld) [Mass fraction] 5.9 % Normal 4.0-6.0 [facility] Comment on above: Performed By: #### L IPR, GLYHGB ####[facility] [address] [place], [place] [phone] Director: Placido Pierce MD#### CP ####[facility] F[address] [place], [place] [phone] Director: Emily George MD#### INSU ####[address] [place], [place] [phone] Director: Placido Pierce, [facility] [address] [place], [place] [phone] Director: Emily George MD Insulinon 04-14-2025 Insulin 25.0 mU/L Normal [facility] Comment on above: Performed By: #### L IPR, GLYHGB ####[facility] [address] [place], [place] [phone] Director: Placido Pierce MD#### CP ####[facility] Vew[address]14 [place], [place] [phone] Director: Emily George MD#### INSU ####[address] [place], [place] [phone] Director: Placido Pierce, [facility] [address] [place], [place] [phone] Director: Emily George MD Reference Range Normal [facility] Comment on above: Result Comment: Fast in.6-24.9 30 min: 20-112 60 min: 29-88 90 min: 26-84 120 min: 22-79 Performed By: #### L IPR, GLYHGB ####[facility] [address] [place], [place] [phone] Director: Placido Pierce MD#### CP ####[facility] Ehb8626 [place] [address] Lab Director: Emily George MD#### INSU ####[facility] [place] [address] Lab [facility]: [facility] [address] [facility] [place] [address] Lab Director: Emily George MD Collection Info. FASTING Normal [facility] Comment on above: Performed By: #### L IPR, GLYHGB ####[facility] [place] [address] Lab Director: Placido Pierce MD#### CP ####[facility] Srs3804 [place] [address] Lab Director: Eimly George MD#### INSU ####[facility] [place] [address] Lab Director: Placido Pierce, [facility] [address] [place] [address] Lab Director: Emily George MD Insulin, Totalon 04-14-2025 Insulin 25.0 mU/L [facility] Insulin Comment FASTING [facility] Insulin Reference Range: [facility] Comment on above: Fastin.6-24.9 30 min: 20-112 60 min: 29-88 90 min: 26-84 120 min: 22-79 Lipid Panelon 04-14-2025 Cholesterol [Mass/Vol] 158 mg/dL 0 - 199 mg/dL [facility] Comment on above: Cholesterol Guidelines: <200 Desirable 200-240 Borderline >240 Undesirable Cholesterol in HDL [Mass/Vol] 31 mg/dL Low 40 - PINF mg/dL [facility] Comment on above: HDL Guidelines: <40 Undesirable 40-59 Borderline >59 Desirable Cholesterol in LDL [Mass/Vol] 59 mg/dL 0 - 100 mg/dL [facility] Comment on above: LDL Guidelines: <100 Desirable 100-129 Near to/above Desirable 130-159 Borderline >159 Undesirable Direct (measured) LDL and calculated LDL are not interchangeable tests. Cholesterol in VLDL [Mass/Vol] 68 mg/dL High 1 - 30 mg/dL [facility] Cholesterol.total/Chol esterol in HDL [Mass ratio] 5.1 {ratio} High [facility] Interpretation and review of laboratory results Abnormal [facility] Triglyceride [Mass/Vol] 341 mg/dL High NINF - 150 mg/dL [facility] Comment on above: Triglyceride Guidelines: <150 Desirable 150-199 Borderline 200-499 High >499 Very high Based on AHA Guidelines for fasting triglyceride, July 2012. Lipid Profileon 04-14-2025 Cholesterol [Mass/Vol] 158 mg/dL Normal 0-[address] [facility] Comment on above: Result Comment: Cholesterol Guidelines: <200 Desirable 200-240 Borderline >240 Undesirable Performed By: #### L IPR, GLYHGB ####[facility] [address] [place] [address] Lab Director: Placido Pierce MD#### CP ####[facility] F[address] [place], [place] [address])[phone] Director: Emily George MD#### INSU ####[address] [address] Lab Director: Placido Pierce [facility] Gxd47[address] [place], [place] [address])[phone] Director: Emily George MD Cholesterol in HDL [Mass/Vol] 31 mg/dL Low >40 [facility] Comment on above: Result Comment: HDL Guidelines: <40 Undesirable 40-59 Borderline >59 Desirable Performed By: #### L IPR, GLYHGB ####[facility] [address] [place] [address] Lab Director: Placido Pierce MD#### CP ####[facility] Pwk8067 [place], [place] [phone] Director: Emily George MD#### INSU ####[facility] [place] [address] Lab Director: Placido Pierce, [facility] Cvl3625 [place] [address] Lab Director: Emily George MD Cholesterol in LDL [Mass/Vol] 59 mg/dL Normal 0-100 [facility] Comment on above: Result Comment: LDL Guidelines: <100 Desirable 100-129 Near to/above Desirable 130-159 Borderline >159 Undesirable Direct (measured) LDL and calculated LDL are not interchangeable tests. Performed By: #### L IPR, GLYHGB ####[facility] [place] [address] Lab Director: Placido Pierce MD#### CP ####[facility] Mcv6123 [place] [address] Lab Director: Emily George MD#### INSU ####[facility] [place] [address] Lab Director: Placido Pierce, [facility] Y[address]36[address] [place], [place] [phone] Director: Emily George MD Cholesterol in VLDL [Mass/Vol] 68 mg/dL High 1-30 [facility] Comment on above: Performed By: #### L IPR, GLYHGB ####[facility] [address] [place] [address] Lab Director: Placido Pierce MD#### CP ####[facility] Bpk3786 [place] [address] Lab Director: Emily George MD#### INSU ####[facility] [address] [place] [address] Lab Director: Placido Pierce, [facility] Lxf[address] [facility] [place] [address] Lab Director: Emily George MD Cholesterol.total/Chol esterol in HDL [Mass ratio] 5.1 {ratio} High <5.0 [facility] Comment on above: Performed By: #### L IPR, GLYHGB ####[facility] [address] [place], [place] [phone] Director: Placido Pierce MD#### CP ####[facility] Ovo[address]64 [place] [address] Lab Director: Emily George MD#### INSU ####[facility] [place], [place] [phone] Director: Placido Pierce, [facility] Odb5040 [place] [address] Lab Director: Emily George MD Triglyceride [Mass/Vol] 341 mg/dL High <150 [facility] Comment on above: Result Comment: Triglyceride Guidelines: <150 Desirable 150-199 Borderline 200-499 High >499 Very high Based on AHA Guidelines for fasting triglyceride, July 2012. Performed By: #### L IPR, GLYHGB ####[facility] [address] [place] [address] Lab Director: Placido Pierce MD#### CP ####[facility] Cii0758 [place] [address] Lab Director: Emily George MD#### INSU ####[facility] [place] [address] Lab Director: Placido Pierce, [facility] Aqk8639 [place] [address] Lab Director: Emily George MD No Panel Informationon 04-14 [facility] MR Foot - right WO [...] again superimposed infection be difficult to include. [facility] RIS CONSOLIDATED EXAM: MRI FOOT RIGHT [...] atrophic change likely related to chronic neuropathy. [facility] RIS Hesham Martins MD - 04/12/2025 EXAM: [...] again superimposed infection be difficult to include. [facility] MR Foot - right WO and W con trast IVOrdered By: Hesham Mcarthur on 04-12-2025 [facility] Work Phone: MRI FOOT RIGHT W [...] by: Hesham Mcarthur MD 04/12/25 Final result [facility] Radiology, Radiologist, MD - 04/12/2025 EXAM: MRI [...] by: Hesham Mcarthur MD 04/12/25 Final result [facility] MRI FOOT RIGHT W [...] Hesham Mcarthur MD 04/12/25 Final result Normal [facility] Radiology Study observation (narrative) [facility] MRI FOOT RIGHT W WO CONTRAST Ordered By: Radiologist Radiology on 04-12-2025 [facility] Work Phone: BUN & Creatinineon Creatinine [Mass/Vol] 1.3 mg/dL High 0.5 - 0.9 mg/dL [facility], Glom Filt Rate 52 Low - PINF [facility] Comment on above: These results are [...] Interpretation and review of laboratory results Abnormal [facility] Urea nitrogen [Mass/Vol] 15 mg/dL 6 - 20 mg/dL [facility] BUN + Creatinineon 5 Creatinine [Mass/Vol] 1.3 mg/dL High 0.5-0.9 [facility] Comment on above: Performed By: #### B UNCRT #### [facility] [address] [place] [address] Nurse Outreach Case Manager: Emily George MD GFR/1.73 sq M.predicted among non-blacks MDRD (S/P/Bld) [Vol rate/Area] 52 mL/min/{1.73_m2} Low >[address] [facility] Comment on above: Result Comment: These [...] secretion. Performed By: #### B UNCRT #### [facility] [address] [place] [address] Nurse Outreach Case Manager: Emily George MD Urea nitrogen [Mass/Vol] 15 mg/dL Normal 6-20 [facility] Comment on above: Performed By: #### B UNCRT #### [facility] [address] [place] [address] Nurse Outreach Case Manager: Emily George MD MHPT BUN + CREATININEon Creatinine [Mass/Vol] 1.3 mg/dL High 0.5 - 0.9 mg/dL [facility] Interpretation and review of laboratory results [facility] 52 Low - PINF [facility] Comment on above: These [...] [Mass/Vol] 15 mg/dL 6 - 20 mg/dL [facility] Original Ordering Provider: [facility] MR Foot - right WO and W con trast Chay 04-11-2025 Radiology Study observation (narrative) [facility] XR Foot - right 2 [facility] Result: XRAY RIGHT FOOT: AP/OBL- No fx. Lis franc diastasis concern with deformity. DP 2 mild cortical disruption 1-2mm possible. No bone density changes [facility] Cult,Woundon 04-08-2025 Cult,Wound Specimen Description .TOE Direct [...] Trimethoprim/Sulfa <=10 SUSCEPTIBLE Vancomycin 1 SUSCEPTIBLE Susceptible [facility] Comment on above: Performed By: #### W DC ####[facility] [address] [place] [address] Lab Director: Placido Pierce, [facility] [address] [place] [address] Lab Director: Emily George MD XR Foot - right 2 [facility] Study observation (narrative) [facility] Brain Natri. Peptideon 04-04 Natriuretic peptide B (Bld) [Mass/Vol] 262 pg/mL Normal <300 [facility] Comment on above: Result Comment: An a ge-independent cutoff point of 300 pg/ml has a 98% negative predictive value excluding acute heart failure. Performed By: #### B PRINCIPAL ENGINEER, SED, CRP #### [facility] [address] [place] [address] Nurse Outreach Case Manager: Emily George MD Brain Natriuretic Peptideon 04-04-2025 Natriuretic peptide B (Bld) [Mass/Vol] 262 pg/mL NINF - 300 pg/mL [facility] Comment on above: An age-independent c utoff point of 300 pg/ml has a 98% negative predictive value excluding acute heart failure. C-Reactive Proteinon 025 CRP High sensitivity method [Mass/Vol] 46.7 mg/L High 0.0 - 5.0 mg/L [facility] Interpretation and review of laboratory results Abnormal [facility] CRP [Mass/Vol] 46.7 mg/L High 0.0-5.0 [facility] Comment on above: Performed By: #### B PRINCIPAL ENGINEER, SED, CRP #### [facility] [address] [place] [address] Nurse Outreach Case Manager: Emily George MD CBC with Auto Differentialon 04-04-2025 Basophils (Bld) [#/Vol] 0.02 10*3/uL [facility] Basophils/100 WBC (Bld) 0 % 0 - 2 % [facility] Eosinophils (Bld) [#/Vol] 0.07 10*3/uL [facility] Eosinophils/100 WBC (Bld) 1 % 0 - 5 % [facility] Erythrocyte distribution width (RBC) [Ratio] 18.4 % High 12.1 - 15.2 % [facility] Hematocrit (Bld) [Volume fraction] 30 % Low 36.0 - 46.0 % [facility] Hemoglobin (Bld) [Mass/Vol] 9.6 g/dL Low 12.0 - 16.0 g/dL [facility] Immature granulocytes (Bld) [#/Vol] 0.13 10*3/uL [facility] Immature granulocytes/100 WBC (Bld) 2 % 0 - 5 % [facility] Interpretation and review of laboratory results Abnormal [facility] Lymphocytes/100 WBC (Bld) 23 % 15 - 40 % [facility] Lymphocytes/100 WBC (Bld) 1.39 % [facility] MCH (RBC) [Entitic mass] 27 pg 26.0 - 34.0 pg [facility] MCHC (RBC) [Mass/Vol] 32 g/dL 31.0 - 37.0 g/dL [facility] MCV (RBC) [Entitic vol] 84.3 fL 80.0 - 100.0 fL [facility] Monocytes/100 WBC (Bld) 6 % 4 - 8 % [facility] Monocytes/100 WBC (Bld) 0.37 % [facility] Neutrophils/100 WBC (Bld) 68 % 47 - 75 % [facility] Platelet mean volume (Bld) [Entitic vol] 11.7 fL 6.0 - 12.0 fL [facility] Platelets (Bld) [#/Vol] 186 10*3/uL [facility] RBC (Bld) [#/Vol] 3.56 10*6/uL Low 4.00 - 5.2 0 m/uL [facility] Segmented neutrophils/100 WBC (Bld) 4.09 % [facility] WBC other (Bld) [#/Vol] 6.1 [facility] CBC with Diffon 04-04-2025 Abs. Basophil 0.02 k/uL Normal 0.00-0.20 [facility] Comment on above: Performed By: #### C DP #### [facility] [address] [place] [address] Nurse Outreach Case Manager: Emily George MD Abs.Imm.Granulocyte 0.13 k/uL Normal 0.00-0.30 [facility] Comment on above: Performed By: #### C DP #### [facility] [address] [phone] Nurse Outreach Case Manager: Emily George MD Abs.Neutrophil (Seg) 4.09 k/uL Normal 2.5-7.0 [facility] Comment on above: Performed By: #### C DP #### [facility] [address] [phone] Nurse Outreach Case Manager: Emily George MD Basophils/100 WBC (Bld) 0 % Normal 0-2 [facility] Comment on above: Performed By: #### C DP #### [facility] [address] [place] [address] Nurse Outreach Case Manager: Emily George MD Eosinophils (Bld) [#/Vol] 0.07 10*3/uL Normal 0.00-0.40 [facility] Comment on above: Performed By: #### C DP #### [facility] [address] [phone] Nurse Outreach Case Manager: Emily George MD Eosinophils/100 WBC (Bld) 1 % Normal 0-5 [facility] Comment on above: Performed By: #### C DP #### [facility] [address] [place] [address] Nurse Outreach Case Manager: Emily George MD Erythrocyte distribution width (RBC) [Ratio] 18.4 % High 12.1-15.2 [facility] Comment on above: Performed By: #### C DP #### [facility] [address] [place] [address] Nurse Outreach Case Manager: Emily George MD Hematocrit (Bld) [Volume fraction] 30.0 % Low 36.0-46.0 [facility] Comment on above: Performed By: #### C DP #### [facility] [address] [phone] Nurse Outreach Case Manager: Emily George MD Hemoglobin (Bld) [Mass/Vol] 9.6 g/dL Low 12.0-16.0 [facility] Comment on above: Performed By: #### C DP #### [facility] [address] [place], [place] [phone] Nurse Outreach Case Manager: Emily George MD Immature granulocytes/100 WBC (Bld) 2 % Normal 0-5 [facility] Comment on above: Performed By: #### C DP #### [facility] [address] [phone] Nurse Outreach Case Manager: Emily George MD Lymphocytes (Bld) [#/Vol] 1.39 10*3/uL Normal 1.00-4.80 [facility] Comment on above: Performed By: #### C DP #### [facility] [address] [phone] Nurse Outreach Case Manager: Emily George MD Lymphocytes/100 WBC (Bld) 23 % Normal 15-40 [facility] Comment on above: Performed By: #### C DP #### [facility] [address] [place] [address] Nurse Outreach Case Manager: Emily George MD MCH (RBC) [Entitic mass] 27.0 pg Normal 26.0-34.0 [facility] Comment on above: Performed By: #### C DP #### [facility] [address] [place] [address] Nurse Outreach Case Manager: Emily George MD MCHC (RBC) [Mass/Vol] 32.0 g/dL Normal 31.0-37.0 [facility] Comment on above: Performed By: #### C DP #### [facility] [address] [place] [address] Nurse Outreach Case Manager: Emily George MD MCV (RBC) [Entitic vol] 84.3 fL Normal 80.0-100.0 [facility] Comment on above: Performed By: #### C DP #### [facility] [address] [place] [address] Nurse Outreach Case Manager: Emily George MD Monocytes (Bld) [#/Vol] 0.37 10*3/uL Normal 0.00-1.00 [facility] Comment on above: Performed By: #### C DP #### [facility] [address] [place] [address] Nurse Outreach Case Manager: Emily George MD Monocytes/100 WBC (Bld) 6 % Normal 4-8 [facility] Comment on above: Performed By: #### C DP #### [facility] [address] [place] [address] Nurse Outreach Case Manager: Emily George MD Neutrophil (Seg) 68 % Normal 47-75 [facility] Comment on above: Performed By: #### C DP #### [facility] [address] [place] [address] Nurse Outreach Case Manager: Emily George MD Platelet mean volume (Bld) [Entitic vol] 11.7 fL Normal 6.0-12.[address] [facility] Comment on above: Performed By: #### C DP #### [facility] [address] [place] [address] Nurse Outreach Case Manager: Emily George MD Platelets (Bld) [#/Vol] 186 10*3/uL Normal 140-450 [facility] Comment on above: Performed By: #### C DP #### [facility] [address] [place] [address] Nurse Outreach Case Manager: Emily George MD RBC (Bld) [#/Vol] 3.56 10*6/uL Low 4.00-5.20 [facility] Comment on above: Performed By: #### C DP #### [facility] [address] [place] [address] Nurse Outreach Case Manager: Emily George MD WBC (Bld) [#/Vol] 6.1 10*3/uL Normal 3.5-11.0 [facility] Comment on above: Performed By: #### C DP #### [facility] [address] [place] [address] Nurse Outreach Case Manager: Emily George MD No Panel Informationon 04-04 No acute osseous injury. Soft tissue swelling of the left great toe on the right second toe without radiographic evidence of osteomyelitis. Postsurgical changes partially imaged on the left. [facility] EXAM: XR TOE LEFT (MIN [...] blastic bony lesions. There is normal mineralization. [facility] Daksha Hannah MD - 04/04/2025 [...] Postsurgical changes partially imaged on the left. [facility] No Panel InformationOrdered By: Daksha Hannah on 04-04-2025 [facility] Work Phone: Sedimentation Rateon 025 ESR Photometric method (Bld) [Velocity] 32 High [facility] Interpretation and review of laboratory results Abnormal [facility] Sedimentation Rate 32 mm/Hr High 0-20 [facility] Comment on above: Performed By: #### B PRINCIPAL ENGINEER, SED, CRP #### [facility] [address] [place] [address] Nurse Outreach Case Manager: Emily George MD XR TOE LEFT (MIN [...] Daksha Hannah MD 04/04/25 Final result Normal [facility] XR TOE RIGHT (MIN 2 VIEWS)on [...] Daksha Hannah MD 04/04/25 Final result Normal [facility] XR Toes - left 2 [facility] Study observation (narrative) [facility] XR Toes - right 2 [facility] Radiology Study observation (narrative) [facility] BRIAN DIGITAL SCREEN BILA TERALon 02-28-2025 NITA [...] be mailed to the patient. Performing Facility: [facility] [address] [address] Interpreted by: Micky Lauren Jr., MD Signed by: Micky Lauren Jr., MD 02/28/25 Final result Normal [facility] Comp Metabolic Profon 2024 Albumin [Mass/Vol] 3.8 g/dL Normal 3.5-5.2 [facility] Comment on above: Performed By: #### G LYHGB, LIPR, LDLDIR ####[facility] [address] [place] [address] Lab Director: Placido Pierce MD#### CP ####[facility] [address] [place], [place] [phone] Lab Director: Emily George MD Alkaline Phos 115 U/L High 35-104 [facility] Comment on above: Performed By: #### G LYHGB, LIPR, LDLDIR ####[facility] [place] [address] Lab Director: Placido Pierce MD#### CP ####[facility] [address] [place] [address] Lab Director: Emily George MD ALT [Catalytic activity/Vol] 11 U/L Normal 5-33 [facility] Comment on above: Performed By: #### G LYHGB, LIPR, LDLDIR ####[address] [place] [address] Lab Director: Placido Pierce MD#### CP ####[facility] M[address] [place], [place] [phone] Lab Director: Emily George MD Anion gap [Moles/Vol] 12 mmol/L Normal 9-17 [facility] Comment on above: Performed By: #### G LYHGB, LIPR, LDLDIR ####[address] [place] [address] Lab Director: Placido Pierce MD#### CP ####[facility] P[address]8906 [place] [address] Lab Director: Emily George MD AST [Catalytic activity/Vol] 14 U/L Normal <32 [facility] Comment on above: Performed By: #### G LYHGB, LIPR, LDLDIR ####[facility] [place] [address] Lab Director: Placido Pierce MD#### CP ####[facility] [address] [place] [address] Lab Director: Emily George MD Bilirubin [Mass/Vol] 0.4 mg/dL Normal 0.3-1.2 [facility] Comment on above: Performed By: #### G LYHGB, LIPR, LDLDIR ####[address] [place] [address] Lab Director: Placido Pierce MD#### CP ####[facility] [address]ib[address]32 [place] [address] Lab Director: Emily George MD BUN/CRE Ratio 19 Normal 9-20 [facility] Comment on above: Performed By: #### G LYHGB, LIPR, LDLDIR ####[address] [place] [address] Lab Director: Placido Pierce MD#### CP ####[facility] X[address] [place], [place] [address])[phone] Director: Emily George MD Calcium [Mass/Vol] 9.3 mg/dL Normal 8.6-10.4 [facility] Comment on above: Performed By: #### G LYHGB, LIPR, LDLDIR ####[address] [address] Lab Director: Placido Pierce MD#### CP ####[facility] [address] [place] [address] Lab Director: Emily George MD Chloride [Moles/Vol] 102 mmol/L Normal 98-107 [facility] Comment on above: Performed By: #### G LYHGB, LIPR, LDLDIR ####[address] [place] [address] Lab Director: Placido Pierce MD#### CP ####[facility] K[address] [place] [address] Lab Director: Emily George MD CO2 [Moles/Vol] 25 mmol/L Normal 20-31 [facility] Comment on above: Performed By: #### G LYHGB, LIPR, LDLDIR ####[facility] [place] [address] Lab Director: Placido Pierce MD#### CP ####[facility] V[address] [place] [address] Lab Director: Emily George MD Creatinine [Mass/Vol] 1.1 mg/dL High 0.5-0.9 [facility] Comment on above: Performed By: #### G LYHGB, LIPR, LDLDIR ####[address] [place] [address] Lab Director: Placido Pierce MD#### CP ####[facility] Rci[address] [place], [place] [phone] lab Director: Emily George MD GFR/1.73 sq M.predicted among non-blacks MDRD (S/P/Bld) [Vol rate/Area] 63 mL/min/{1.73_m2} Normal >[address] [facility] Comment on above: Result Comment: These [...] Performed By: #### G LYHGB, LIPR, LDLDIR ####[facility] [place] [address] Lab Director: Placido Pierce MD#### CP ####[facility] [address] [place] [address] Lab Director: Emily George MD Glucose [Mass/Vol] 125 mg/dL High 70-99 [facility] Comment on above: Performed By: #### G LYHGB, LIPR, LDLDIR ####[address] [place] [address] Lab Director: Placido Pierce MD#### CP ####[facility] Jxu2740 [place] [address] Lab Director: Emily George MD Potassium [Moles/Vol] 4.2 mmol/L Normal 3.7-5.3 [facility] Comment on above: Performed By: #### G LYHGB, LIPR, LDLDIR ####[address] [address] Lab Director: Placido Pierce MD#### CP ####[facility] [address] [place], [place] [address])[phone] Director: Emily George MD Protein [Mass/Vol] 7.2 g/dL Normal 6.4-8.3 [facility] Comment on above: Performed By: #### G LYHGB, LIPR, LDLDIR ####[address] [address] Lab Director: Placido Pierce MD#### CP ####[facility] Pdb5716 [place] [address] Lab Director: Emily George MD Sodium [Moles/Vol] 139 mmol/L Normal 135-144 [facility] Comment on above: Performed By: #### G LYHGB, LIPR, LDLDIR ####[address] [address] Lab Director: Placido Pierce MD#### CP ####[facility] Wwi[address] [place] [address] Lab Director: Emily George MD Urea nitrogen [Mass/Vol] 21 mg/dL High 6-20 [facility] Comment on above: Performed By: #### G LYHGB, LIPR, LDLDIR ####[facility] [address] [place], [place] [id number] Lab Director: Placido Pierce MD#### CP ####[facility] [address] [place] [place], [place] [phone] lab Director: Emily George MD Comprehensive Metabolic Pane [facility] 11-14-2024 Albumin [Mass/Vol] 3.8 g/dL 3.5 - 5.2 g/dL [facility] ALP [Catalytic activity/Vol] 115 U/L High 35 - 104 U/L [facility] ALT [Catalytic activity/Vol] 11 U/L 5 - 33 U/L [facility] Anion gap [Moles/Vol] 12 mmol/L 9 - 17 mmol/L [facility] AST [Catalytic activity/Vol] 14 U/L NINF - 32 U/L [facility] Bilirubin [Mass/Vol] 0.4 mg/dL 0.3 - 1 .2 mg/dL [facility] Calcium [Mass/Vol] 9.3 mg/dL 8.6 - 10. 4 mg/dL [facility] Chloride [Moles/Vol] 102 mmol/L 98 - 10 7 mmol/L [facility] CO2 [Moles/Vol] 25 mmol/L 20 - 31 mmol/L [facility] Creatinine [Mass/Vol] 1.1 mg/dL High 0.5 - 0.9 mg/dL [facility] Est, Glom Filt Rate 63 - PINF [facility] Comment on above: These results are [...] 125 mg/dL High 70 - 99 mg/dL [facility] Interpretation and review of laboratory results Abnormal [facility] Potassium [Moles/Vol] 4.2 mmol/L 3.7 - 5.3 mmol/L [facility] Protein [Mass/Vol] 7.2 g/dL 6.4 - 8.3 g/dL [facility] Sodium [Moles/Vol] 139 mmol/L 135 - 144 mmol/L [facility] Urea nitrogen [Mass/Vol] 21 mg/dL High 6 - 20 mg/dL [facility] Urea nitrogen/Creatinine [Mass ratio] 19 mg/mg 9 - 20 [facility] Hemoglobin A1Con 11-14-2024 Average glucose Estimated from glycated hemoglobin (Bld) [Mass/Vol] 103 mg/dL [facility] Comment on above: The ADA and AACC rec ommend providing the estimated average glucose result to permit better patient understanding of their HBA1c result. HbA1c (Bld) [Mass fraction] 5.2 % 4.0 - 6.0 % [facility] Glucose [Mass/Vol] 103 mg/dL Normal [facility] Comment on above: Result Comment: The ADA and AACC recommend providing the estimated average glucose result to permit better patient understanding of their HBA1c result. Performed By: #### G LYHGB, LIPR, LDLDIR ####[facility] [address] [place] [phone] Lab Director: Placiod Pierce MD#### CP ####[facility] [address] [facility] [place] [address] lab Director: Emily George MD HbA1c (Bld) [Mass fraction] 5.2 % Normal 4.0-6.0 [facility] Comment on above: Performed By: #### G LYHGB, LIPR, LDLDIR ####[facility] [address] [place], [place] [id number] Lab Director: Placido Pierce MD#### CP ####[facility] Bno[address] [place] [address] lab Director: Emily George MD LDL Chol, Directon LDL Chol, Direct 94 mg/dL Normal <100 [facility] Comment on above: Performed By: #### G LYHGB, LIPR, LDLDIR ####[facility] [address] [place], [place] [id number] lab Director: Placido Pierce MD#### CP ####[facility] [address]wy2672 [place] [address] lab Director: Emily George MD LDL Cholesterol, Directon Cholesterol in LDL [Mass/Vol] 94 mg/dL NINF - 100 mg/dL [facility] Lipid Panelon 11-14-2024 Cholesterol [Mass/Vol] 179 mg/dL 0 - 199 mg/dL [facility] Comment on above: Cholesterol Guidelines: <200 Desirable 200-240 Borderline >240 Undesirable Cholesterol in HDL [Mass/Vol] 31 mg/dL Low 40 - PINF mg/dL [facility] Comment on above: HDL Guidelines: <40 Undesirable 40-59 Borderline >59 Desirable Cholesterol in LDL [Mass/Vol] Can not be calculated 0 - 100 mg/dL [facility] Comment on above: LDL Guidelines: <100 Desirable 100-129 Near to/above Desirable 130-159 Borderline >159 Undesirable Direct (measured) LDL and calculated LDL are not interchangeable tests. Cholesterol in VLDL [Mass/Vol] Can not be calculated 1 - 30 mg/dL [facility] Cholesterol.total/Chol esterol in HDL [Mass ratio] 5.8 {ratio} [facility] Interpretation and review of laboratory results Abnormal [facility] Triglyceride [Mass/Vol] 407 mg/dL High NINF - 150 mg/dL [facility] Comment on above: Triglyceride Guidelines: <150 Desirable 150-199 Borderline 200-499 High >499 Very high Based on AHA Guidelines for fasting triglyceride, July 2012. [facility] CogMetal Lipid Profileon 11-14-2024 Cholesterol [Mass/Vol] 179 mg/dL Normal 0-199 [facility] Comment on above: Result Comment: Cholesterol Guidelines: <200 Desirable 200-240 Borderline >240 Undesirable Performed By: #### G LYHGB, LIPR, LDLDIR ####[facility] [place], [place] [phone] Director: Placido Pierce MD#### CP ####[facility] [address]o1719 [place], [place] [phone] Director: Emily George MD Cholesterol in HDL [Mass/Vol] 31 mg/dL Low >40 [facility] Comment on above: Result Comment: HDL Guidelines: <40 Undesirable 40-59 Borderline >59 Desirable Performed By: #### G LYHGB, LIPR, LDLDIR ####[address] [place], [place] [phone] Director: Placido Pierce MD#### CP ####[facility] Y[address] [place], [place] [phone] Director: Emily George MD Cholesterol,LDL Can not be calculated Normal 0-100 [facility] Comment on above: Result Comment: LDL Guidelines: <100 Desirable 100-129 Near to/above Desirable 130-159 Borderline >159 Undesirable Direct (measured) LDL and calculated LDL are not interchangeable tests. Performed By: #### G LYHGB, LIPR, LDLDIR ####[address] [place], [place] [phone])[phone] Director: Placido Pierce MD#### CP ####[facility] Bsg9619 [place], [place] [phone] Director: Emily George MD Cholesterol,VLDL Can not be calculated Normal 1-30 [facility] Comment on above: Performed By: #### G LYHGB, LIPR, LDLDIR ####[facility] [place], [place] [phone] Director: Placido Pierce MD#### CP ####[facility] Mou[address]998 [place] [address] Lab Director: Emily George MD Cholesterol.total/Chol esterol in HDL [Mass ratio] 5.8 {ratio} Normal [facility] Comment on above: Performed By: #### G LYHGB, LIPR, LDLDIR ####[facility] [address] [place] [address] Lab Director: Placido Pierce MD#### CP ####[facility] Dcr4600 [place] [address] Lab Director: Emily George MD Triglyceride [Mass/Vol] 407 mg/dL High <150 [facility] Comment on above: Result Comment: Triglyceride Guidelines: <150 Desirable 150-199 Borderline 200-499 High >499 Very high Based on AHA Guidelines for fasting triglyceride, July 2012. Performed By: #### G LYHGB, LIPR, LDLDIR ####[facility] [address] [place] [address] Lab Director: lPacido Pierce MD#### CP ####[facility] T[address]153 [place] [address] Lab Director: Emily George MD US THYROIDon [...] Jr., MD 09/07/24 Final result Normal [facility] US Thyroid glandon TI-RADS 5, highly suspicious subcentimeter nodule in the right lobe remains stable. (Follow if greater than or equal to 0.5 cm annually until 5 years according to ACR TI-RADS recommendations). Continued follow-up annually is recommended through 2026. [facility] EXAM: US THYROID HISTORY: Thyroid [...] 1.7 x 1.3 cm. Isthmus: 0.2 cm [facility] Micky Lauren Jr., MD - [...] Continued follow-up annually is recommended through 2026. [facility] US Thyroid glandOrdered By: Micky Lauren on 09-07-2024 [facility] Work Phone: US Thyroid glandon Radiology Study observation (narrative) [facility] Magnesiumon 05-10-2024 Magnesium [Mass/Vol] 2.2 mg/dL 1.6 - 2 .6 mg/dL [facility] ADstruc [facility] No Panel Informationon 05-10 [facility] Easy[employer]osis [employer] Protein / creatinine ratio, urineon 05-10-2024 Creatinine (U) [Mass/Vol] 132.0 mg/dL 28.0 - 217.0 mg/dL [facility] [employer] Protein (U) [Mass/Vol] 9 mg/dL [facility] Comment on above: No normal range esta blished. Urine Total Protein Creatinine Ratio 0.07 [facility] AD[facility]c [facility] Renal Function Panelon 05-10 Albumin [Mass/Vol] 4.2 g/dL 3.5 - 5.2 g/dL [facility] Anion gap [Moles/Vol] 15 mmol/L 9 - 17 mmol/L [facility] [employer]osis [employer] Calcium [Mass/Vol] 9.2 mg/dL 8.6 - 10. 4 mg/dL [facility] Chloride [Moles/Vol] 101 mmol/L 98 - 10 7 mmol/L [facility] CO2 [Moles/Vol] 25 mmol/L 20 - 31 mmol/L [facility] Creatinine [Mass/Vol] 1.3 mg/dL High 0.5 - 0.9 mg/dL [facility] [employer]Tra[employer] Est, Glom Filt Rate 52 Low - PINF [facility] Comment on above: These results are [...] 141 mg/dL High 70 - 99 mg/dL [facility] Interpretation and review of laboratory results Abnormal [facility] Phosphate [Mass/Vol] 3.8 mg/dL 2.6 - 4 .5 mg/dL [facility] Potassium [Moles/Vol] 4.0 mmol/L 3.7 - 5.3 mmol/L [facility] Sodium [Moles/Vol] 141 mmol/L 135 - 144 mmol/L [facility] Urea nitrogen [Mass/Vol] 19 mg/dL 6 - 20 mg/dL [facility] Urea nitrogen/Creatinine [Mass ratio] 15 mg/mg 9 - 20 [facility] Urinalysison 05-10-2024 Bilirubin Ql (U) Negative NEGATIVE [facility] Clarity (U) Clear Clear [facility] Color (U) Yellow Yellow [facility] Comment [facility] Glucose Test strip (U) [Mass/Vol] Negative NEGATIVE mg/dL [facility] Hemoglobin Auto test strip Ql (U) Negative NEGATIVE [facility] Interpretation and review of laboratory results Abnormal [facility] Ketones (U) [Mass/Vol] Negative NEGAT BEATRIZ mg/dL [facility] Leukocyte esterase Test strip Ql (U) Negative NEGATIVE [facility] Nitrite Ql (U) Negative NEGATIVE [facility] pH (U) 5.0 [pH] 5.0 - 8.0 [facility] Protein (U) [Mass/Vol] TRACE Abnormal NEGAT BEATRIZ mg/dL [facility] Specific gravity (U) [Rel density] 1.020 1.005 - 1.030 [facility] Urobilinogen Qn (U) Normal 0.0 - 1. 0 EU/dL [facility] Ananda 02-15-2024 L Specimen: [id number] Received: 02/16/24 Status: SOUT Req Num: [id number] Spec Type: Surgical Subm Dr: Frances Harris DPM, MS Tissues: A Soft Tissue/Surgical Margin-Other than Tumor,Mass,Lip or Becka (LT MID FOOT CH Procedures: HE/2, Gross/Micro L4 Age/ Patient Sex Location Account Attending Physician Celina Gaspar 43/F [facility] [id number] Frances Harris DPM, MS SPEC NUM: [id number] RECD: 02/16/24 STATUS: ARLEN SO NUM: [id number] MAYTE: 02/15/[address]: Frances Harris DPM, MS ENTERED: 02/16/[address] [facility] [address]: Darwin Vergara SPEC TYPE: [...] sections reveal firm, yellow spongy bone matrix. Province Archivist sections are submitted following decalcification in A1?A2. Clinical history: varus deformity left ankle, charcot join left ankle and foot. CPT Codes 41229 Specimen: [id number] Received: 02/16/24 Status: ARLEN [place] Num: [id number] Spec Type: Surgical Subm Dr: Frances Harris,INDER, MS Tissues: A Soft Tissue/Surgical Margin-Other than Tumor,Mass,Lip or Becka (LT MID FOOT CH Procedures: HE/2, Gross/Micro L4 Patient: Celina Gaspar [id number] (Continued) Signed (signature on file) Juan José Yu MD 02/17/24 1549 Normal [facility] Lipid Panelon 06-15-2023 Cholesterol [Mass/Vol] 174 mg/dL NINF - 200 mg/dL [facility] Comment on above: Cholesterol Guidelines: <200 Desirable 200-240 Borderline >240 Undesirable Cholesterol in HDL [Mass/Vol] 30 mg/dL Low 40 - PINF mg/dL [facility] Comment on above: HDL Guidelines: <40 Undesirable 40-59 Borderline >59 Desirable Cholesterol in LDL [Mass/Vol] 77 mg/dL 0 - 130 mg/dL [facility] Comment on above: LDL Guidelines: <100 Desirable 100-129 Near to/above Desirable 130-159 Borderline >159 Undesirable Direct (measured) LDL and calculated LDL are not interchangeable tests. Cholesterol.total/Chol esterol in HDL [Mass ratio] 5.8 {ratio} High NINF - 5 [facility] Interpretation and review of laboratory results Abnormal [facility] Triglyceride [Mass/Vol] 334 mg/dL High NINF - 150 mg/dL [facility] Comment on above: Triglyceride Guidelines: <150 Desirable 150-199 Borderline 200-499 High >499 Very high Based on AHA Guidelines for fasting triglyceride, July 2012. [facility] BUN & Creatinineon Creatinine [Mass/Vol] 1.08 mg/dL High 0.50 - 0.90 mg/dL [facility] GFR/1.73 sq M.predicted MDRD (S/P/Bld) [Vol rate/Area] - PINF [facility] Comment on above: These results [...] 21 mg/dL High 6 - 20 mg/dL [facility] CBC with Auto Differentialon 02-05-2023 Absolute Eos # 0.10 [place] [facility] Absolute Lymph # 1.70 [facility] Absolute Coke # 0.50 [facility] RS [facility] Basophils (Bld) [#/Vol] 0.00 10*3/uL [facility] Basophils/100 WBC (Bld) 1 % 0 - 2 % [facility] Differential Type YES [facility] Eosinophils/100 WBC (Bld) 1 % 0 - 5 % [facility] Hematocrit (Bld) [Volume fraction] 36.2 % 36 - 46 % [facility] Hemoglobin (Bld) [Mass/Vol] 12.2 g/dL 12.0 - 16.0 g/dL [facility] Interpretation and review of laboratory results Abnormal [facility] Lymphocytes/100 WBC (Bld) 23 % 15 - 40 % [facility] MCH (RBC) [Entitic mass] 28.7 pg 26 - 34 pg [facility] MCHC (RBC) [Mass/Vol] 33.7 g/dL 31 - 37 g/dL B ON [facility] MCV (RBC) [Entitic vol] 85.3 fL 80 - 100 fL [facility] Monocytes/100 WBC (Bld) 7 % 4 - 8 % [facility] Platelet distribution width (Bld) [Ratio] 18.1 % High 12.1 - 15.2 % [facility] Platelets (Bld) [#/Vol] 150 10*3/uL [facility] RBC (Bld) [#/Vol] 4.25 10*6/uL 4.0 - 5.2 m/uL [facility] Segmented neutrophils/100 WBC (Bld) 68 % 47 - 75 % [facility] Segs Absolute 5.30 [facility] WBC (Bld) [#/Vol] 7.6 10*3/uL [facility] Chlorideon 02-05-2023 Chloride [Moles/Vol] 99 mmol/L 98 - 10 7 mmol/L [facility] Glucose, Randomon 02-05-2023 Glucose [Mass/Vol] 107 mg/dL High 70 - 99 mg/dL [facility] No Panel Informationon 02-05 Interpretation and review of laboratory results Abnormal [facility] Potassiumon 02-05-2023 Potassium [Moles/Vol] 4.6 mmol/L 3.7 - 5.3 mmol/L [facility] Sodiumon 02-05-2023 Sodium [Moles/Vol] 134 mmol/L Low 135 - 144 mmol/L [facility] Wet Prep, Genitalon 02-06-20 Interpretation and review of laboratory results Abnormal [facility] Microorganism or agent identified Nom (Unsp spec) FEW WBC Abnormal [facility] Microorganism or agent identified Nom (Unsp spec) MODERATE EPITHELIAL CELLS Abnormal [facility] Microorganism or agent identified Nom (Unsp spec) MODERATE BACTERIA Abnormal [facility] Microorganism or agent identified Nom (Unsp spec) NO TRICHOMONAS SEEN [facility] Microorganism or agent identified Nom (Unsp spec) NO FUNGAL ELEMENTS SEEN [facility] Microorganism or agent identified Nom (Unsp spec) NO CLUECELL SEEN [facility] Specimen Description .VAGINA [facility] CT FOOT LT WO CONon 02-05-20 [...] by: EMILY ELY Date: 2023-02-04 20:14 Normal [facility] XR ANKLE LEFT 3+ VIEWS (ABDOULAYE [...] on ThuJan 06, 2023 6:11:26 PM EDT [facility] Comment on above: Order Comment: Injur y/Trauma [...] fragmentation of the navicular and cuneiform bones. [facility] EXAM: MRI FOOT LEFT W [...] osteomyelitis. No nonenhancing abscess pockets are identified. [facility] Mike Villavicencio MD - 06/25/2022 [...] fragmentation of the navicular and cuneiform bones. [facility] Phone: Radiology Study observation (narrative) [facility] Phone: MRI FOOT LEFT W WO CONTRASTO rdered By: Mike Villavicencio on 06-25-2022 [facility] Phone: XR FOOT LEFT (2 VIEWS)on There is a linear metallic foreign body projecting between the second and third metatarsals. There is also a metallic foreign body within the lower leg. There is fragmentation of the navicular as well as of all 3 cuneiforms. The appearance is consistent with the patient's history of neuropathy. [facility] EXAM: XR FOOT LEFT (2 VIEWS) HISTORY: M79.5. The patient is a 42-year-old female. Evaluate for foreign body. COMPARISON: None. [facility] Mike Villavicencio MD - 06/25/2022 [...] consistent with the patient's history of neuropathy. 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 Clinical follow up recommended. Subcentimeter highly suspicious nodule in the right thyroid lobe 7 mm in greatest dimension. This meets criteria for annual follow up for 5 years. It does not meet criteria for FNA. [facility] EXAM: US HEAD NECK SOFT [...] fat without shadowing, suggestive of a lipoma. [facility] Micky Lauren Jr., MD - [...] It does not meet criteria for FNA. [facility] Work Phone: Radiology Study observation (narrative) [facility] [employer] Work Phone: US HEAD NECK SOFT TISSUE THY ROIDOrdered By: Micky Lauren on 05-27-2022 [facility] [employer] Work Phone: Rejection Notificationon Reason see below [facility] Comment on above: Result Comment: Unab le to perform testing; no specimen received. To perform testing the specimen will need to be recollected. No spec Performed By: #### R EJEC #### [facility] [address] [address] Rejected Test CXURN [facility] Comment on above: Performed By: #### R EJEC #### [facility] [address] [address] LDL Cholesterol, Directon Cholesterol in LDL [Mass/Vol] 84 mg/dL <100 [facility] CBC with Auto Differentialon 04-12-2022 Absolute Eos # 0.10 [facility] Absolute Lymph # 1.40 [facility] Absolute Coke # 0.30 [facility] RS [facility] [employer] Basophils (Bld) [#/Vol] 0.00 10*3/uL [facility] Basophils/100 WBC (Bld) 1 % 0 - 2 % [facility] Differential Type YES [facility] Eosinophils/100 WBC (Bld) 1 % 0 - 5 % [facility] Hematocrit (Bld) [Volume fraction] 35.7 % Low 36 - 46 % [facility] Hemoglobin (Bld) [Mass/Vol] 12.0 g/dL 12.0 - 16.0 g/dL [facility] Interpretation and review of laboratory results Abnormal [facility] Lymphocytes/100 WBC (Bld) 25 % 15 - 40 % [facility] MCH (RBC) [Entitic mass] 28.0 pg 26 - 34 pg [facility] MCHC (RBC) [Mass/Vol] 33.7 g/dL 31 - 37 g/dL B ON [facility] MCV (RBC) [Entitic vol] 83.3 fL 80 - 100 fL [facility] Monocytes/100 WBC (Bld) 5 % 4 - 8 % [facility] Platelet distribution width (Bld) [Ratio] 16.4 % High 12.1 - 15.2 % [facility] Platelets (Bld) [#/Vol] 168 10*3/uL [facility] RBC (Bld) [#/Vol] 4.29 10*6/uL 4.0 - 5.2 m/uL [facility] Segmented neutrophils/100 WBC (Bld) 68 % 47 - 75 % [facility] Segs Absolute 3.90 [facility] WBC (Bld) [#/Vol] 5.7 10*3/uL [facility] Comprehensive Metabolic Pane ananda 04-12-2022 Albumin [Mass/Vol] 4.2 g/dL 3.5 - 5.2 g/dL [facility] ALP (Bld) [Catalytic activity/Vol] 88 U/L 35 - 104 U/L [facility] ALT [Catalytic activity/Vol] 29 U/L 5 - 33 U/L [facility] Anion gap [Moles/Vol] 11 mmol/L 9 - 17 mmol/L [facility] AST [Catalytic activity/Vol] 27 U/L <32 [facility] Bilirubin [Mass/Vol] 0.65 mg/dL 0.30 - 1.20 mg/dL [facility] Calcium [Mass/Vol] 9.1 mg/dL 8.6 - 10. 4 mg/dL [facility] Chloride [Moles/Vol] 101 mmol/L 98 - 10 7 mmol/L [facility] CO2 [Moles/Vol] 28 mmol/L 20 - 31 mmol/L [facility] Creatinine [Mass/Vol] 1.04 mg/dL High 0.50 - 0.90 mg/dL [facility] Free PSA/Total PSA [Mass fraction] 6.8 g/dL 6.4 - 8.3 g/dL [facility] [employer] GFR >60 >60 mL/min [facility] GFR Non- 58 mL/min Low >60 [facility] GFR/1.73 sq M.predicted MDRD (S/P/Bld) [Vol rate/Area] [email or web address] Comment on above: Average GFR for 40-4 9 years old: 99 mL/min/1.73sq m Chronic Kidney Disease: <60 mL/min/1.73sq m Kidney failure: <15 mL/min/1.73sq m eGFR calculated using average adult body mass. Additional eGFR calculator available at: http://www.[employer]/multiple_crcl_2012.htm Glucose [Mass/Vol] 103 mg/dL High 70 - 99 mg/dL [facility] Interpretation and review of laboratory results Abnormal [facility] Potassium [Moles/Vol] 3.9 mmol/L 3.7 - 5.3 mmol/L [facility] Sodium [Moles/Vol] 140 mmol/L 135 - 144 mmol/L [facility] Urea nitrogen (BldV) [Mass/Vol] 13 mg/dL 6 - 20 mg/dL [facility] Urea nitrogen/Creatinine (Bld) [Mass ratio] 13 [facility] HIV Screenon 04-12-2022 HIV Ag/Ab Non-Reactive NONREACTIVE [email or web address] Comment on above: No laboratory eviden ce of HIV infection. If acute HIV infection is suspected, consider testing for HIV-1 RNA. [facility] Lipid Panelon 04-12-2022 Cholesterol [Mass/Vol] 184 mg/dL <200 [facility] [employer] Comment on above: Cholesterol Guidelines: <200 Desirable 200-240 Borderline >240 Undesirable Cholesterol in HDL [Mass/Vol] 30 mg/dL Low >40 [facility] [employer] Comment on above: HDL Guidelines: <40 Undesirable 40-59 Borderline >59 Desirable Cholesterol.total/Chol esterol in HDL [Mass ratio] 6.1 {ratio} High <5 [facility] [employer] Interpretation and review of laboratory results Abnormal [facility] LDL Cholesterol 0 - 130 mg/dL [email or web address] Comment on above: Calculation not jacqueline d for Triglyceride value greater than 400 mg/dL. Direct LDL reflexed LDL Guidelines: <100 Desirable 100-129 Near to/above Desirable 130-159 Borderline >159 Undesirable Direct (measured) LDL and calculated LDL are not interchangeable tests. Triglyceride [Mass/Vol] 460 mg/dL High <150 [employer] Comment on above: Triglyceride Guidelines: <150 Desirable 150-199 Borderline 200-499 High >499 Very high Based on AHA Guidelines for fasting triglyceride, July 2012. [facility] No Panel Informationon 04-12 [facility] TSH with Reflexon 04-12-2022 TSH Qn 0.99 m[IU]/L [facility] Urinalysis with MicroscopicO rdered By: Lita Weeks on 08-01-2021 - [facility] Work Phone: Amorphous, UA NOT REPORTED None [facility] Work Phone: Bacteria, UA RARE Abnormal None [facility] Work Phone: Bilirubin Urine Negative NEGATIVE [facility] Work Phone: Casts UA NOT REPORTED /LPF [facility] Work Phone: Color, UA Yellow Yellow [facility] Work Phone: Crystals, UA NOT REPORTED None /HPF [employer] Work Phone: Epithelial Cells UA 2 TO 5 /HPF [facility] Work Phone: Glucose, Ur Negative NEGATIVE [facility] Work Phone: Interpretation and review of laboratory results Abnormal [facility] Work Phone: Ketones Ql (U) Negative NEGATIVE [employer] Work Phone: Leukocyte esterase Test strip Ql (U) Negative NEGATIVE [facility] Work Phone: Mucus, UA NOT REPORTED None [facility] Work Phone: Nitrite, Urine Negative NEGATIVE [employer] Work Phone: Other Observations UA NOT REPORTED NOT REQ. [facility] Work Phone: pH, UA 6.0 [facility] Work Phone: Protein, UA Negative NEGATIVE [facility] Work Phone: RBC, UA NOT REPORTED [facility] Work Phone: Renal Epithelial, UA NOT REPORTED 0 /HPF [facility] [employer] Work Phone: Specific [place], UA 1.020 [facility] Work Phone: Trichomonas, UA NOT REPORTED None [facility] Work Phone: Turbidity UA Clear Clear [facility] Work Phone: Urinalysis Comments [facility] Work Phone: Urine Hgb Negative NEGATIVE [facility] Work Phone: Urobilinogen, Urine Normal Normal [facility] Work Phone: WBC, UA NOT REPORTED 0 /HPF [facility] Work Phone: Yeast, UA NOT REPORTED None [facility] Work Phone: [facility] Work Phone: Urinalysis with MicroscopicO rdered By: Lita Weeks on 07-11-2021 - [employer] Phone: Amorphous, UA NOT REPORTED None [facility] Work Phone: Bacteria, UA 3+ Abnormal None [facility] Work Phone: Bilirubin Urine Negative NEGATIVE [facility] Work Phone: Casts UA NOT REPORTED /LPF [facility] Work Phone: Color, UA Yellow Yellow [facility] Work Phone: Crystals, UA NOT REPORTED None /HPF [facility] Work Phone: Epithelial Cells UA 2 TO 5 /HPF [facility] Work Phone: Glucose, Ur Negative NEGATIVE [facility] Work Phone: Interpretation and review of laboratory results Abnormal [facility] Work Phone: Ketones Ql (U) Negative NEGATIVE [facility] Work Phone: Leukocyte esterase Test strip Ql (U) 2+ Abnormal NEGATIVE [facility] Work Phone: Mucus, UA NOT REPORTED None [facility] Work Phone: Nitrite, Urine Positive Abnormal NEGATIVE [employer] Work Phone: Other Observations UA NOT REPORTED NOT REQ. [facility] Work Phone: pH, UA 6.0 [facility] Work Phone: Protein, UA Negative NEGATIVE [facility] Work Phone: RBC, UA NOT REPORTED [facility] Work Phone: Renal Epithelial, UA NOT REPORTED 0 /HPF [facility] [employer] Work Phone: Specific [place], UA 1.025 [employer] Work Phone: Trichomonas, UA NOT REPORTED None [facility] Work Phone: Turbidity UA Hazy Abnormal Clear [facility] Work Phone: Urinalysis Comments [facility] Work Phone: Urine Hgb Negative NEGATIVE [facility] Work Phone: Urobilinogen, Urine Normal Normal [facility] Work Phone: WBC, UA 20 TO 50 0 /HPF [facility] Work Phone: Yeast, UA NOT REPORTED None [facility] Work Phone: [facility] Work Phone: AlbuminOrdered By: Gregory stevens on 05-20-2021 Albumin [Mass/Vol] 4.2 g/dL 3.5 - 5.2 g/dL [employer] Phone: BUN & CreatinineOrdered By: Gregory Forbes on 05-20-2021 Creatinine [Mass/Vol] 1.18 mg/dL High 0.50 - 0.90 mg/dL [employer] Phone: GFR >60 >60 mL/min [facility] [place] Phone: GFR Non- 50 mL/min Low >60 [employer] Phone: GFR/1.73 sq M.predicted MDRD (S/P/Bld) [Vol rate/Area] [employer] Phone: Comment on above: Average GFR for 40-4 9 years old: 99 mL/min/1.73sq m Chronic Kidney Disease: <60 mL/min/1.73sq m Kidney failure: <15 mL/min/1.73sq m eGFR calculated using average adult body mass. Additional eGFR calculator available at: http://www.[employer]/multiple_crcl_2012.htm GFR/1.73 sq M.predicted MDRD (S/P/Bld) [Vol rate/Area] NOT REPORTED [employer] Phone: Interpretation and review of laboratory results Abnormal [employer] Phone: Urea nitrogen (BldV) [Mass/Vol] 19 mg/dL 6 - 20 mg/dL [employer] Phone: CalciumOrdered By: Gregory stevens on 05-20-2021 Calcium [Mass/Vol] 9.2 mg/dL 8.6 - 10. 4 mg/dL [employer] Phone: Electrolyte PanelOrdered By: Gregory Forbes on 05-20-2021 Anion gap [Moles/Vol] 10 mmol/L 9 - 17 mmol/L [employer] Phone: Chloride [Moles/Vol] 103 mmol/L 98 - 10 7 mmol/L [employer] Phone: CO2 [Moles/Vol] 25 mmol/L 20 - 31 mmol/L [facility] Work Phone: Potassium [Moles/Vol] 4.2 mmol/L 3.7 - 5.3 mmol/L [facility] Work Phone: Sodium [Moles/Vol] 138 mmol/L 135 - 144 mmol/L [facility] Work Phone: MagnesiumOrdered By: Gregory high on 05-20-2021 Magnesium [Mass/Vol] 2.2 mg/dL 1.6 - 2 .6 mg/dL [facility] [employer] Phone: No Panel InformationOrdered By: Gregory Forbes on 05-20-2021 [facility] Work Phone: PhosphorusOrdered By: Gregory Forbes on 05-20-2021 Phosphate [Mass/Vol] 3.7 mg/dL 2.6 - 4 .5 mg/dL [facility] Work Phone: UrinalysisOrdered By: Gregory Forbes on 05-20-2021 Bilirubin Urine Negative NEGATIVE [facility] Work Phone: Color, UA YELLOW YELLOW [facility] Work Phone: Glucose, Ur Negative NEGATIVE [facility] Work Phone: Interpretation and review of laboratory results Abnormal [facility] Work Phone: Ketones Ql (U) Negative NEGATIVE [facility] Work Phone: Leukocyte esterase Test strip Ql (U) Negative NEGATIVE [facility] Work Phone: Nitrite, Urine Negative NEGATIVE [facility] Work Phone: pH, UA 5.0 [facility] [employer] Work Phone: Protein, UA TRACE Abnormal NEGATIVE [facility] [employer] Work Phone: Specific [place], UA 1.020 [facility] Work Phone: Turbidity UA CLEAR CLEAR [employer] Phone: Urinalysis Comments [employer] Phone: Urine Hgb Negative NEGATIVE [employer] Phone: Urobilinogen, Urine Normal Normal [employer] Phone: [employer] Phone: COVID-19Ordered By: Pattie smith on 01-22-2021 SARS-CoV-2 (COVID-19) RNA SHARMIN+probe Ql (Unsp spec) [employer] Phone: SARS-CoV-2 (COVID-19) RNA SHARMIN+probe Ql (Unsp spec) Not detected Not Detected [employer] Phone: Comment on above: The specimen is NEGATIVE for SARS-CoV-2, the novel coronavirus associated with COVID-19. A negative result does not rule out COVID-19. Twin SARS-CoV-2 for use on the Twin [employer] is a real-time RT-PCR test intended [...] this assay. Fact sheet for Healthcare Providers: https://www.fda.gov/media/657550/download Fact sheet for Patients: https://www.fda.gov/media/244941/download METHODOLOGY: RT-PCR Source .THROAT [employer] Phone: COVID-19, PCRon 11-15-2020 SARS-CoV-2, Rapid Not Detected Not Detected [employer] Phone: Comment on above: Rapid NAAT: The [...] management decisions. Fact sheet for Healthcare Providers: https://www.[employer]gov/media/632338/download Fact sheet for Patients: https://www.[employer]gov/media/100851/download Methodology: Isothermal Nucleic Acid Amplification Source .THROAT [facility] Phone: Otheron 11-15-2020 SARS-CoV-2 [facility] Phone: CBC Auto Differentialon 09-04 Basophils (Bld) [#/Vol] 0.10 10*3/uL [place] Basophils/100 WBC (Bld) 1 % 0 - 2 % [place] Differential Type YES [facility] [place] Eosinophils (Bld) [#/Vol] 0.10 10*3/uL [place] Eosinophils/100 WBC (Bld) 1 % 0 - 5 % [place] Erythrocyte distribution width (RBC) [Ratio] 16.3 % High 12.1 - 15.2 % [place] Hematocrit (Bld) [Volume fraction] 36.5 % 36 - 46 % [place] Hemoglobin (Bld) [Mass/Vol] 12.5 g/dL 12 - 16 g/dL [place] Interpretation and review of laboratory results Abnormal [place] Lymphocytes (Bld) [#/Vol] 1.90 10*3/uL [place] Lymphocytes/100 WBC (Bld) 25 % 15 - 40 % [place] MCH (RBC) [Entitic mass] 28.8 pg 26 - 34 pg [place] MCHC (RBC) [Mass/Vol] 34.3 g/dL 31 - 37 g/dL [place] MCV (RBC) [Entitic vol] 84.0 fL 80 - 100 fL [place] Monocytes (Bld) [#/Vol] 0.40 10*3/uL [place] Monocytes/100 WBC (Bld) 5 % 4 - 8 % [place] Platelet mean volume (Bld) [Entitic vol] NOT REPORTED 6 - 12 fL [place] Platelets (Bld) [#/Vol] 167 10*3/uL [place] Platelets (Bld) [#/Vol] NOT REPORTED [place] RBC (Bld) [#/Vol] 4.35 10*6/uL 4 - 5.2 m/uL [place] RBC morphology finding Nom (Bld) NOT REPORTED [place] Segmented neutrophils/100 WBC (Bld) 68 % 47 - 75 % [place] Segs Absolute 5.40 [place] WBC (Bld) [#/Vol] 7.8 10*3/uL [place] WBC (Bld) [#/Vol] NOT REPORTED per 100 WBC [place] WBC Morphology NOT REPORTED [place] Comprehensive Metabolic Pane l w/ Reflex to MGon 09-16-2020 Albumin [Mass/Vol] 4.4 g/dL 3.5 - 5.2 g/dL [place] Albumin/Globulin [Mass ratio] NOT REPORTED [place] ALP [Catalytic activity/Vol] 117 U/L High 35 - 104 U/L [place] ALT [Catalytic activity/Vol] 41 U/L High 5 - 33 U/L [place] Anion gap [Moles/Vol] 10 mmol/L 9 - 17 mmol/L [place] AST [Catalytic activity/Vol] 39 U/L High <32 [place] Bilirubin Ql (U) 0.52 mg/dL 0.3 - 1.2 mg/dL [place] Bun/Cre Ratio 11 [place] Calcium [Mass/Vol] 9.0 mg/dL 8.6 - 10. 4 mg/dL [place] Chloride [Moles/Vol] 101 mmol/L 98 - 10 7 mmol/L [place] CO2 [Moles/Vol] 26 mmol/L 20 - 31 mmol/L [place] Creatinine [Mass/Vol] 1.32 mg/dL High 0.5 - 0.9 mg/dL [place] GFR 54 mL/min Low >60 [place] GFR Non- 44 mL/min Low >60 [place] GFR/1.73 sq M predicted among non-blacks MDRD (S/P/Bld) [Vol rate/Area] [place] Comment on above: Average GFR for 40-4 9 years old: 99 mL/min/1.73sq m Chronic Kidney Disease: <60 mL/min/1.73sq m Kidney failure: <15 mL/min/1.73sq m eGFR calculated using average adult body mass. Additional eGFR calculator available at: http://www.[employer]/multiple_crcl_2012.htm GFR/1.73 sq M predicted among non-blacks MDRD (S/P/Bld) [Vol rate/Area] NOT REPORTED [place] Glucose [Mass/Vol] 173 mg/dL High 70 - 99 mg/dL [place] Interpretation and review of laboratory results Abnormal [place] Potassium [Moles/Vol] 3.9 mmol/L 3.7 - 5.3 mmol/L [place] Protein [Mass/Vol] 7.3 g/dL 6.4 - 8.3 g/dL [place] Sodium [Moles/Vol] 137 mmol/L 135 - 144 mmol/L [place] Urea nitrogen [Mass/Vol] 15 mg/dL 6 - 20 mg/dL [place] Otheron 09-16-2020 Immature granulocytes (Bld) [#/Vol] NOT REPORTED [place] Sedimentation Rateon 020 Sed Rate 15 mm 0 - 20 mm [place] Urinalysis, reflex to micros copicon 09-16-2020 Bilirubin Urine Negative NEGATIVE [place] Color, UA YELLOW YELLOW [place] Glucose, Ur Negative NEGATIVE [place] Interpretation and review of laboratory results Abnormal [place] Ketones Ql (U) Negative NEGATIVE [place] Leukocyte esterase Test strip Ql (U) Negative NEGATIVE [place] Nitrite, Urine Negative NEGATIVE [place] pH, UA 5.0 [place] Protein (U) [Mass/Vol] TRACE Abnormal NEGATIVE [place] Specific [place], UA 1.025 [place] Turbidity UA CLEAR CLEAR [place] Urinalysis Comments [place] Urine Hgb Negative NEGATIVE [place] Urobilinogen, Urine Normal Normal [place] C-Reactive Proteinon 020 CRP [Mass/Vol] 6 mg/L High 0 - 5 mg/L [place] Interpretation and review of laboratory results Abnormal [place] CBC With Auto Differentialon 08-24-2020 Basophils (Bld) [#/Vol] 0.00 10*3/uL [place] Basophils/100 WBC (Bld) 1 % 0 - 2 % [place] Differential Type YES [place] Eosinophils (Bld) [#/Vol] 0.10 10*3/uL [place] Eosinophils/100 WBC (Bld) 1 % 0 - 5 % [place] Erythrocyte distribution width (RBC) [Ratio] 16.2 % High 12.1 - 15.2 % [place] Hematocrit (Bld) [Volume fraction] 35.4 % Low 36 - 46 % [place] Hemoglobin (Bld) [Mass/Vol] 12.2 g/dL 12 - 16 g/dL [place] Interpretation and review of laboratory results Abnormal [place] Lymphocytes (Bld) [#/Vol] 1.60 10*3/uL [place] Lymphocytes/100 WBC (Bld) 28 % 15 - 40 % [place] MCH (RBC) [Entitic mass] 29.1 pg 26 - 34 pg [place] MCHC (RBC) [Mass/Vol] 34.5 g/dL 31 - 37 g/dL [place] MCV (RBC) [Entitic vol] 84.2 fL 80 - 100 fL [place] Monocytes (Bld) [#/Vol] 0.40 10*3/uL [place] Monocytes/100 WBC (Bld) 6 % 4 - 8 % [place] Platelet mean volume (Bld) [Entitic vol] NOT REPORTED 6 - 12 fL [place] Platelets (Bld) [#/Vol] 160 10*3/uL [place] Platelets (Bld) [#/Vol] NOT REPORTED [place] RBC (Bld) [#/Vol] 4.20 10*6/uL 4 - 5.2 m/uL [place] RBC morphology finding Nom (Bld) NOT REPORTED [place] Segmented neutrophils/100 WBC (Bld) 64 % 47 - 75 % [place] Segs Absolute 3.80 [place] WBC (Bld) [#/Vol] 5.8 10*3/uL [place] WBC (Bld) [#/Vol] NOT REPORTED per 100 WBC [place] WBC Morphology NOT REPORTED [place] Otheron 08-24-2020 Immature granulocytes (Bld) [#/Vol] NOT REPORTED 0 % [place] Sedimentation Rateon 020 Sed Rate 10 mm 0 - 20 mm [place] C-Reactive Proteinon 020 CRP [Mass/Vol] 2 mg/L 0 - 5 mg/L [place] CBC With Auto Differentialon 07-24-2020 Basophils (Bld) [#/Vol] 0.10 10*3/uL [place] Basophils/100 WBC (Bld) 1 % 0 - 2 % [place] Differential Type YES [place] Eosinophils (Bld) [#/Vol] 0.10 10*3/uL [place] Eosinophils/100 WBC (Bld) 1 % 0 - 5 % [place] Erythrocyte distribution width (RBC) [Ratio] 16.8 % High 12.1 - 15.2 % [place] Hematocrit (Bld) [Volume fraction] 40.0 % 36 - 46 % [place] Hemoglobin (Bld) [Mass/Vol] 13.5 g/dL 12 - 16 g/dL [place] Interpretation and review of laboratory results Abnormal [place] Lymphocytes (Bld) [#/Vol] 1.70 10*3/uL [place] Lymphocytes/100 WBC (Bld) 17 % 15 - 40 % [place] MCH (RBC) [Entitic mass] 29.1 pg 26 - 34 pg [place] MCHC (RBC) [Mass/Vol] 33.8 g/dL 31 - 37 g/dL [place] MCV (RBC) [Entitic vol] 86.0 fL 80 - 100 fL [place] Monocytes (Bld) [#/Vol] 0.50 10*3/uL [place] Monocytes/100 WBC (Bld) 5 % 4 - 8 % [place] Platelet mean volume (Bld) [Entitic vol] NOT REPORTED 6 - 12 fL [place] Platelets (Bld) [#/Vol] NOT REPORTED [place] Platelets (Bld) [#/Vol] 208 10*3/uL [place] RBC (Bld) [#/Vol] 4.65 10*6/uL 4 - 5.2 m/uL [place] RBC morphology finding Nom (Bld) NOT REPORTED [place] Segmented neutrophils/100 WBC (Bld) 76 % High 47 - 75 % [place] Segs Absolute 7.70 High [place] WBC (Bld) [#/Vol] NOT REPORTED per 100 WBC [place] WBC (Bld) [#/Vol] 10.0 10*3/uL [place] WBC Morphology NOT REPORTED [place] Otheron 07-24-2020 Immature granulocytes (Bld) [#/Vol] NOT REPORTED 0 % [place] Sedimentation Rateon 020 Sed Rate 6 mm 0 - 20 mm [place], [place] Protein / creatinine ratio, urineon 06-07-2020 Creatinine, Ur 101.2 mg/dL 28 - 217 mg/dL [place] Protein (U) [Mass/Vol] 8 mg/dL [place] Comment on above: No normal range esta blished. Urine Total Protein Creatinine Ratio 0.08 [place] Urinalysison 06-07-2020 Bilirubin Urine Negative NEGATIVE [place], [place] Color, UA YELLOW YELLOW [place] Glucose, Ur 100 mg/dL Abnormal NEGATIVE [place] Interpretation and review of laboratory results Abnormal [place] Ketones Ql (U) Negative NEGATIVE [place] Leukocyte esterase Test strip Ql (U) Negative NEGATIVE [place] Nitrite, Urine Negative NEGATIVE [place] pH, UA 6.0 [place] Protein (U) [Mass/Vol] Negative NEGATIVE [place], [place] Specific [place], UA 1.020 [place], [place] Turbidity UA CLEAR CLEAR [place] Urinalysis Comments [place] Urine Hgb Negative NEGATIVE [place] Urobilinogen, Urine Normal Normal [place], [place] Comprehensive Metabolic Pane ananda 05-25-2020 Albumin [Mass/Vol] 4.4 g/dL 3.5 - 5.2 g/dL [place] Albumin/Globulin [Mass ratio] NOT REPORTED [place] ALP [Catalytic activity/Vol] 87 U/L 35 - 104 U/L [place] ALT [Catalytic activity/Vol] 21 U/L 5 - 33 U/L [place] Anion gap [Moles/Vol] 10 mmol/L 9 - 17 mmol/L [place] AST [Catalytic activity/Vol] 22 U/L <32 [place] Bilirubin Ql (U) 0.32 mg/dL 0.3 - 1.2 mg/dL [place], [place] Bun/Cre Ratio 18 [place] Calcium [Mass/Vol] 10.1 mg/dL 8.6 - 10. 4 mg/dL [place] Chloride [Moles/Vol] 104 mmol/L 98 - 10 7 mmol/L [place] CO2 [Moles/Vol] 26 mmol/L 20 - 31 mmol/L [place] Creatinine [Mass/Vol] 1.37 mg/dL High 0.5 - 0.9 mg/dL [place] GFR 52 mL/min Low >60 [place] GFR Non- 43 mL/min Low >60 [place] GFR/1.73 sq M predicted among non-blacks MDRD (S/P/Bld) [Vol rate/Area] NOT REPORTED [place] GFR/1.73 sq M predicted among non-blacks MDRD (S/P/Bld) [Vol rate/Area] [place], [place] Comment on above: Average GFR for 40-4 9 years old: 99 mL/min/1.73sq m Chronic Kidney Disease: <60 mL/min/1.73sq m Kidney failure: <15 mL/min/1.73sq m eGFR calculated using average adult body mass. Additional eGFR calculator available at: http://www.[employer]/multiple_crcl_2012.htm Glucose [Mass/Vol] 160 mg/dL High 70 - 99 mg/dL [place] Interpretation and review of laboratory results Abnormal [place] Potassium [Moles/Vol] 4.6 mmol/L 3.7 - 5.3 mmol/L [place] Protein [Mass/Vol] 7.4 g/dL 6.4 - 8.3 g/dL [place] Sodium [Moles/Vol] 140 mmol/L 135 - 144 mmol/L [place], [place] Urea nitrogen [Mass/Vol] 24 mg/dL High 6 - 20 mg/dL [place] Hemoglobin A1Con 05-25-2020 Glucose [Mass/Vol] 123 mg/dL [place] Comment on above: The ADA and AACC rec ommend providing the estimated average glucose result to permit better patient understanding of their HBA1c result. HbA1c (Bld) [Mass fraction] 5.9 % 4 - 6 % [place] LDL Cholesterol, Directon Cholesterol in LDL [Mass/Vol] 58 mg/dL <100 [place] Lipid Panelon 05-25-2020 Cholesterol [Mass/Vol] 194 mg/dL <200 [place] Comment on above: Cholesterol Guidelines: <200 Desirable 200-240 Borderline >240 Undesirable Cholesterol in HDL [Mass/Vol] 27 mg/dL Low >40 [place], [place] Comment on above: HDL Guidelines: <40 Undesirable 40-59 Borderline >59 Desirable Cholesterol in LDL [Mass/Vol] 0 - 130 mg/dL [place] Comment on above: Calculation not jacqueline d for Triglyceride value greater than 400 mg/dL. Direct LDL reflexed LDL Guidelines: <100 Desirable 100-129 Near to/above Desirable 130-159 Borderline >159 Undesirable Direct (measured) LDL and calculated LDL are not interchangeable tests. Cholesterol in VLDL [Mass/Vol] NOT REPORTED 1 - 30 mg/dL [place] Cholesterol.total/Chol esterol in HDL [Mass ratio] 7.2 {ratio} High <5 [place] Interpretation and review of laboratory results Abnormal [place] Triglyceride [Mass/Vol] 1112 mg/dL High <150 [place], [place] Comment on above: Triglyceride Guidelines: <150 Desirable 150-199 Borderline 200-499 High >499 Very high Based on AHA Guidelines for fasting triglyceride, July 2012. Patient Fasting?on 0 Patient Fasting? YES [facility], [place] Vitamin D 25 Hydroxyon 05-25 Vit D, 25-Hydroxy 30.2 ng/mL 30 - 100 ng/mL [place], [place] Comment on above: Reference Range: Vitamin D status Range Deficiency <20 ng/mL Mild Deficiency 20-30 ng/mL Sufficiency 30-100 ng/mL Toxicity >100 ng/mL C-Reactive Proteinon 020 CRP [Mass/Vol] 6.2 mg/L High 0 - 5 mg/L [place] Interpretation and review of laboratory results Abnormal [place] Hemoglobin [id number] By: Kevin delgado Edendyanharinder on 09-24-2019 Glucose [Mass/Vol] 108 mg/dL [employer] Phone: Comment on above: The ADA and AACC rec ommend providing the estimated average glucose result to permit better patient understanding of their HBA1c result. HbA1c (Bld) [Mass fraction] 5.4 % 4.8 - 5.9 % [employer] Phone: Homocysteine, SerumOrdered B y: Janel Allen on 09-24-2019 Homocysteine 9 umol/L <15.0 [employer] Phone: TSH without ReflexOrdered By : Janel Tiffany on 09-24-2019 TSH Qn 1.03 m[IU]/L [employer] Phone: Vitamin B12 & FolateOrdered By: Janel Tiffany on 09-24-2019 Cobalamin (Vitamin B12) [Mass/Vol] 292 pg/mL 232 - 1245 pg/mL [employer] Phone: Folate 13.8 ng/mL >4.8 [employer] Phone: XR CERVICAL SPINE (4-5 VIEWS )on 07-29-2019 Mild degenerative changes cervical spine not unusual for age. Refer to the [facility] services 02/03/2019 with some of the findings discussed above. [place] EXAM: XR CERVICAL SPINE (4-5 VIEWS) HISTORY: Reason for exam:->history MRSA discitis of thoracic region. New tingling and numbness of fingers COMPARISON: MRI cervical spine [facility] 02/03/2019, cervical spine series 04/03/2010. The [...] Swimmer's lateral view shows no additional abnormality. 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 New tingling and numbness of fingers COMPARISON: MRI cervical spine [facility] 02/03/2019, cervical spine series 04/03/2010. The [...] not unusual for age. Refer to the [facility] services 02/03/2019 with some of the findings discussed above. [place] C-Reactive ProteinOrdered By : Azalea Knight on 07-28-2019 CRP [Mass/Vol] 6.4 mg/L High 0 - 5 mg/L [place] Interpretation and review of laboratory results Abnormal [place], [place] CBC With Auto DifferentialOr dered By: Azalea Knight on 07-28-2019 Absolute Eos # 0.10 [place], [place] Absolute Immature Granulocyte NOT REPORTED [place] Absolute Lymph # 2.10 [place], [place] Absolute Coke # 0.50 [place] Basophils (Bld) [#/Vol] 0.00 10*3/uL [place], [place] Basophils/100 WBC (Bld) 1 % 0 - 2 % [place] Differential Type YES [place] Eosinophils/100 WBC (Bld) 1 % 0 - 5 % [place] Erythrocyte distribution width (RBC) [Ratio] 14.5 % 12.1 - 15.2 % [place] Hematocrit (Bld) [Volume fraction] 38.1 % 36 - 46 % [place] Hemoglobin (Bld) [Mass/Vol] 12.9 g/dL 12 - 16 g/dL [place] Immature Granulocytes NOT REPORTED 0 % [place] Lymphocytes/100 WBC (Bld) 34 % 15 - 40 % [place] MCH (RBC) [Entitic mass] 29.5 pg 26 - 34 pg [place] MCHC (RBC) [Mass/Vol] 33.9 g/dL 31 - 37 g/dL [place] MCV (RBC) [Entitic vol] 87.1 fL 80 - 100 fL [place], [place] Monocytes/100 WBC (Bld) 8 % 4 - 8 % [place] MPV NOT REPORTED 6 - 12 fL [place] NRBC Automated NOT REPORTED per 100 WBC [place] Platelet Estimate NOT REPORTED [place] Platelets (Bld) [#/Vol] 222 10*3/uL [place] RBC (Bld) [#/Vol] 4.38 10*6/uL 4 - 5.2 m/uL [place] RBC morphology finding Nom (Bld) NOT REPORTED [place] Segmented neutrophils/100 WBC (Bld) 56 % 47 - 75 % [place] Segs Absolute 3.50 [place] WBC (Bld) [#/Vol] 6.2 10*3/uL [place] WBC Morphology NOT REPORTED [place] Sedimentation RateOrdered By : Azalea Aroramichoacano on 07-28-2019 Sed Rate 19 mm 0 - 30 mm [place] C-Reactive Proteinon 019 CRP [Mass/Vol] 7.3 mg/L High 0 - 5 mg/L [place] Interpretation and review of laboratory results Abnormal [place] Albuminon 06-17-2019 Albumin [Mass/Vol] 4.3 g/dL 3.5 - 5.2 g/dL [place], [place] BUN & Creatinineon 9 Creatinine [Mass/Vol] 1.27 mg/dL High 0.5 - 0.9 mg/dL [place] GFR 56 mL/min Low >60 [place] GFR Non- 47 mL/min Low >60 [place] GFR/1.73 sq M predicted among non-blacks MDRD (S/P/Bld) [Vol rate/Area] NOT REPORTED [place] GFR/1.73 sq M predicted among non-blacks MDRD (S/P/Bld) [Vol rate/Area] [place], [place] Comment on above: Average GFR for 40-4 9 years old: 99 mL/min/1.73sq m Chronic Kidney Disease: <60 mL/min/1.73sq m Kidney failure: <15 mL/min/1.73sq m eGFR calculated using average adult body mass. Additional eGFR calculator available at: http://www.[employer]/multiple_crcl_2012.htm Interpretation and review of laboratory results Abnormal [place] Urea nitrogen [Mass/Vol] 18 mg/dL 6 - 20 mg/dL [place] Calciumon 06-17-2019 Calcium [Mass/Vol] 10.4 mg/dL 8.6 - 10. 4 mg/dL [place] Electrolyte Panelon 06-17-20 19 Anion gap [Moles/Vol] 13 mmol/L 9 - 17 mmol/L [place] Chloride [Moles/Vol] 103 mmol/L 98 - 10 7 mmol/L [place] CO2 [Moles/Vol] 24 mmol/L 20 - 31 mmol/L [place] Potassium [Moles/Vol] 3.8 mmol/L 3.7 - 5.3 mmol/L [place], [place] Sodium [Moles/Vol] 140 mmol/L 135 - 144 mmol/L [place] Hemoglobin and Hematocrit, B loodon 06-17-2019 Hematocrit (Bld) [Volume fraction] 35.4 % Low 36 - 46 % [place] Hemoglobin (Bld) [Mass/Vol] 12.1 g/dL 12 - 16 g/dL [place] Interpretation and review of laboratory results Abnormal [place] Magnesiumon 06-17-2019 Magnesium [Mass/Vol] 2.3 mg/dL 1.6 - 2 .6 mg/dL [place] Microscopic Urinalysison Amorphous, UA NOT REPORTED None [place], [place] Bacteria, UA 1+ Abnormal None [place] Casts UA NOT REPORTED /LPF [place] Crystals UA NOT REPORTED None /HPF [place] Epithelial Cells UA 2 TO 5 /HPF [place] Interpretation and review of laboratory results Abnormal [place] Mucus, UA NOT REPORTED None [place] Other Observations UA NOT REPORTED NOT REQ. [place] RBC (U) [#/Vol] NOT REPORTED [place] Renal Epithelial, Urine NOT REPORTED 0 /HPF [place], [place] Trichomonas, UA NOT REPORTED None [place] WBC, UA 0 TO 2 0 /HPF [place], [place] Yeast, UA NOT REPORTED None [place], [place] - [place], [place] Phosphoruson 06-17-2019 Phosphate [Mass/Vol] 3.0 mg/dL 2.6 - 4 .5 mg/dL [place], [place] Protein / creatinine ratio, urineon 06-17-2019 Creatinine, Ur 228.2 mg/dL High 28 - 217 mg/dL [place] Interpretation and review of laboratory results Abnormal [place] Protein (U) [Mass/Vol] 18 mg/dL [place] Comment on above: No normal range esta blished. Urine Total Protein Creatinine Ratio 0.08 [place], [place] Sedimentation Rateon 019 Sed Rate 24 mm 0 - 30 mm [place] Urinalysison 06-17-2019 Bilirubin Urine Negative NEGATIVE [place], [place] Color, UA YELLOW YELLOW [place], [place] Glucose, Ur Negative NEGATIVE [place] Interpretation and review of laboratory results Abnormal [place], [place] Ketones Ql (U) Negative NEGATIVE [place] Leukocyte esterase Test strip Ql (U) Negative NEGATIVE [place], [place] Nitrite, Urine Negative NEGATIVE [place] pH, UA 6.0 [place], [place] Protein (U) [Mass/Vol] TRACE Abnormal NEGATIVE [place], [place] Specific [place], UA 1.025 [place], [place] Turbidity UA HAZY Abnormal CLEAR [place], [place] Urinalysis Comments [place] Urine Hgb Negative NEGATIVE [place] Urobilinogen, Urine Normal Normal [place] MR CERVICAL SPINE WITHOUT CO NTRASTon [...] or cord edema. /cdr Workstation ID: [id number] [facility] EXAMINATION: MR CERVICAL SPINE WITHOUT CONTRAST [...] creating probable mild left-sided neural foraminal stenosis. [facility], Prasad In Aric Mohanq - [...] - [place] Workstation ID: [id number] [facility] MR CERVICAL SPINE WITHOUT CONTRAST EXAMINATION: [...] ThuFebruary 03, 2019 10:59:35 AM EDT Normal [facility] Comment on above: Order Comment: Reaso [...] 48 DAYS Report Status FINAL 10/11/2018 Normal [facility] Comment on above: Performed By: #### T ROPI #### [employer] [address] [place] [id number] Cult,Mycobacteria Specimen Description .SPINE .TISSUE T4 LAMINA Special Requests NOT REPORTED Direct Exam NO ACID FAST BACILLI SEEN (DIRECT SMEAR) Culture NO GROWTH 48 DAYS Report Status FINAL 10/11/2018 [facility] Comment on above: Performed By: #### L ACWB #### [employer] [address] [place] [id number] Cult,Funguson 09-27-2018 Cult,Fungus Specimen Description .TISSUE EPIDURAL TISSUE Special Requests NOT REPORTED Culture NO GROWTH 34 DAYS Report Status FINAL 09/27/2018 Normal [facility] Comment on above: Performed By: #### L ACWB #### [facility] [address] [place], [place] [id number] Cult,Fungus Specimen Description .SPINE .TISSUE T4 LAMINA Special Requests NOT REPORTED Culture NO GROWTH 34 DAYS Report Status FINAL 09/27/2018 Normal [facility] Comment on above: Performed By: #### L ACWB #### [facility] [address] [place] [address] BUNon 09-23-2018 Urea nitrogen mass conc 20 mg/dL Normal 03-27 [facility] Comment on above: Performed By: #### 2 [id number] ####[facility] [address] [place] [address] Creatinineon 09-23-2018 Creatinine mass conc 1.3 mg/dL High 0.5-1.1 [facility] Comment on above: Performed By: #### 2 [id number] ####[facility] [id number] [place] [address] eGFRon 09-23-2018 eGFR AA 54 mL/min/1.73 m2 [facility] Comment on above: Order Comment: Order added by Discern Expert. Performed By: #### 2 [id number] ####[facility] [address] [place] [address] GFR/1.73 sq M predicted among non-blacks MDRD vol rate/area (S/P/Bld) 45 mL/min/1.73 m2 [facility] Comment on above: Order Comment: Order added by Discern Expert. Performed By: #### 2 [id number] ####[facility] [address] [place] [address] Auto Diffon 09-20-2018 Basophils Auto #/vol (Bld) 0.0 E3/mcL Normal 0.0-0.2 [facility] Comment on above: Order Comment: Order Added by Discern Expert. Performed By: #### 2 [id number] ####[facility] [address] [place] [address] Basophils/100 WBC Auto (Bld) 1.1 % Normal 0.0-2.0 [facility] Comment on above: Order Comment: Order Added by Discern Expert. Performed By: #### 2 [id number] ####[facility] [address] [place] [address] Eos Absolute 0.0 E3/mcL Normal 0.0-0.7 [facility] Comment on above: Order Comment: Order Added by Discern Expert. Performed By: #### 2 [id number] ####[facility] [address] [place] [address] Eosinophils/100 WBC Auto (Bld) 0.3 % Normal 0.0-11.0 [facility] Comment on above: Order Comment: Order Added by Discern Expert. Performed By: #### 2 [id number] ####[facility] [address] [place] [address] Lymphocytes Auto #/vol (Bld) 1.2 E3/mcL Normal 1.2-3.4 [facility] Comment on above: Order Comment: Order Added by Discern Expert. Performed By: #### 2 [id number] ####[facility] [address] [place] [address] Lymphocytes/100 WBC Auto (Bld) 30.6 % Normal 20.0-55.0 [facility] Comment on above: Order Comment: Order Added by Discern Expert. Performed By: #### 2 [id number] ####OVIDIO [address] [place] [address] Coke Absolute 0.4 E3/mcL Normal 0.0-0.7 [facility] Comment on above: Order Comment: Order Added by Discern Expert. Performed By: #### 2 [id number] ####OVID[facility] [address] [place] [address] Monocytes/100 WBC Auto (Bld) 10.2 % High 0.0-10.0 [facility] Comment on above: Order Comment: Order Added by Discern Expert. Performed By: #### 2 [id number] ####OVID[facility] [address] [place] [address] Neutro Absolute 2.3 E3/mcL Normal 1.4-6.5 [facility] Comment on above: Order Comment: Order Added by Discern Expert. Performed By: #### 2 [id number] ####[facility] [address] [place] [address] Neutro Auto 57.8 % Normal 37.0-75.0 [facility] Comment on above: Order Comment: Order Added by Discern Expert. Performed By: #### 2 [id number] ####[facility] [address] [place] [address] CBC w/ Auto Diffon 8 Erythrocyte distribution width Auto Ratio (RBC) 19.9 % High 11.5-14.5 [facility] Comment on above: Performed By: #### 2 [id number] ####[facility] [address] [place] [address] Hematocrit Auto Volume Fraction (Bld) 26.5 % Low 36.0-48.0 [facility] Comment on above: Performed By: #### 2 [id number] ####OVIDIO [address] [place] [id number] Hemoglobin mass conc (Bld) 8.7 g/dL Low 12.0-16.0 [facility] Comment on above: Performed By: #### 2 [id number] ####[facility] [address] [place] [address] MCH Auto Entitic mass (RBC) 29.6 pg Normal 27.0-31.0 [facility] Comment on above: Performed By: #### 2 [id number] ####OVIDIO [address] [place] [address] MCHC Auto mass conc (RBC) 32.9 g/dL Low 33.0-37.0 [facility] Comment on above: Performed By: #### 2 [id number] ####OVID[facility] [address] [place] [address] MCV Auto Entitic volume (RBC) 89.8 fL Normal 78.0-100.0 [facility] Comment on above: Performed By: #### 2 [id number] ####OVID[facility] [address] [place] [address] Platelet mean volume Auto Entitic volume (Bld) 10.5 fL Normal 7.4-11.0 [facility] Comment on above: Performed By: #### 2 [id number] ####OVIDIO [address] [place] [address] Platelets Auto #/vol (Bld) 117 E3/mcL Low 130-400 [facility] Comment on above: Performed By: #### 2 [id number] ####OVIDIO [address] [place] [address] RBC Auto #/vol (Bld) 2.95 E6/mcL Low 3.90-5.40 [facility] Comment on above: Performed By: #### 2 [id number] ####OVIDIO [address] [place] [address] WBC Auto #/vol (Bld) 4.0 E3/mcL Normal 3.6-11.0 [facility] Comment on above: Performed By: #### 2 [id number] ####OVIDIO [address] [place] [address] CRPon 09-20-2018 CRP mass conc 0.83 mg/dL Normal 0.00-1.00 [facility] Comment on above: Performed By: #### 2 [id number] ####OVIDIO [address] [place] [address] Morphon 09-20-2018 Anisocytosis Auto Ql (Bld) 1+ Normal [facility] Comment on above: Order Comment: Order Added by Discern Expert. Performed By: #### 1 [id number] ####OVID[facility] [address] [place] [address] Hypochromasia 1+ Normal [facility] Comment on above: Order Comment: Order Added by Discern Expert. Performed By: #### 1 [id number] ####OVIDIO [address] [place] [address] RBC morphology finding Nom (Bld) SEE MORPHOLOGY Normal [facility] Comment on above: Order Comment: Order Added by Discern Expert. Performed By: #### 1 [id number] ####OVIDIO [address] [place] [address] Sed Rate Automatedon 018 Sed Rate Automated 15 mm/hr Normal [facility] Comment on above: Result Comment: AGE- SPECIFIC REFERENCE RANGES FOR SEDIMENTATION RATE AUTOMATED REFERENCE RANGE - MM/HR AGE MEN WOMEN 0-2 0-2 - PUBERTY 3-13 3-13 PUBERTY - 50 YRS 0-15 0-20 > 50 YRS 0-20 0-30 Performed By: #### 1 [id number] ####OVIDIO Hematology Manual [id number] [place] [id number] zzplt morphon 09-20-2018 Platelet morphology finding Nom (Bld) NORMAL Normal [facility] Comment on above: Performed By: #### 9 [id number] ####OVIDIO [address] [place] [id number] Platelets Auto #/vol (Bld) NORMAL Normal [facility] Comment on above: Performed By: #### 9 [id number] ####OVIDIO [address]Kses[address] [place] [address] BLOOD UREA NITROGENon 2017 Urea nitrogen mass conc (Bld) 19 mg/dL Normal 7-20 [facility] Comment on above: Performed By: #### A CBC, ESR, BUN, CREAT, CREACT, FX ####Testing performed at [place] [id number] C REACTIVE PROTEINon 018 CRP mass conc 18.5 mg/L High 0-10.0 [facility] Comment on above: Performed By: #### A CBC, ESR, BUN, CREAT, CREACT, FX ####Testing performed at [address] [address] CBCon 09-13-2018 ABSOLUTE BAS 0.1 X10 Normal [facility] Comment on above: Performed By: #### A CBC, ESR, BUN, CREAT, CREACT, FX ####Testing performed at [address] [address] ABSOLUTE EOS 0.20 X10 Normal [facility] Comment on above: Performed By: #### A CBC, ESR, BUN, CREAT, CREACT, FX ####Testing performed at [facility] [address] [place] [address] ABSOLUTE NEUTROPHIL COUNT 2.5 x10 Normal 1.0-7.0 [facility] Comment on above: Performed By: #### A CBC, ESR, BUN, CREAT, CREACT, FX ####Testing performed at [address] [address] Basophils/100 WBC Auto (Bld) 1.4 % Normal 0.0-2.0 [facility] Comment on above: Performed By: #### A CBC, ESR, BUN, CREAT, CREACT, FX ####Testing performed at [address] [address] DTYPE AUTO DIFF Normal [facility] Comment on above: Performed By: #### A CBC, ESR, BUN, CREAT, CREACT, FX ####Testing performed at [address] [address] Eosinophils/100 WBC Auto (Bld) 3.5 % Normal 0.0-11.0 [facility] Comment on above: Performed By: #### A CBC, ESR, BUN, CREAT, CREACT, FX ####Testing performed at [address] [address] Lymphocytes Auto #/vol (Bld) 1.10 X10 Normal [facility] Comment on above: Performed By: #### A CBC, ESR, BUN, CREAT, CREACT, FX ####Testing performed at [address] [address] Lymphocytes/100 WBC Auto (Bld) 27.0 % Normal 20.0-55.0 [facility] Comment on above: Performed By: #### A CBC, ESR, BUN, CREAT, CREACT, FX ####Testing performed at [address] [address] Monocytes Auto #/vol (Bld) 0.4 X10 Normal [facility] Comment on above: Performed By: #### A CBC, ESR, BUN, CREAT, CREACT, FX ####Testing performed at [address] [id number] Monocytes/100 WBC Auto (Bld) 9.4 % Normal 0.0-10.0 [facility] Comment on above: Performed By: #### A CBC, ESR, BUN, CREAT, CREACT, FX ####[place] [address] Neutrophils/100 WBC Auto (Bld) 58.7 % Normal 37.0-75.0 [facility] Comment on above: Performed By: #### A CBC, ESR, BUN, CREAT, CREACT, FX ####[place] [address] Erythrocyte distribution width Auto Ratio (RBC) 17.6 % High 11.5-14.5 [facility] Comment on above: Performed By: #### A CBC, ESR, BUN, CREAT, CREACT, FX ####[place] [address] Hematocrit Auto Volume Fraction (Bld) 26.2 % Low 36.0-48.0 [facility] Comment on above: Performed By: #### A CBC, ESR, BUN, CREAT, CREACT, FX ####[place] [address] Hemoglobin mass conc (Bld) 8.8 g/dL Low 12.0-16.0 [facility] Comment on above: Performed By: #### A CBC, ESR, BUN, CREAT, CREACT, FX ####[place] [address] MCH Auto Entitic mass (RBC) 29.3 pg Normal 26.0-35.0 [facility] Comment on above: Performed By: #### A CBC, ESR, BUN, CREAT, CREACT, FX ####[place] [address] MCHC Auto mass conc (RBC) 33.7 g/dL Normal 27.0-37.0 [facility] Comment on above: Performed By: #### A CBC, ESR, BUN, CREAT, CREACT, FX ####[place] [address] MCV Auto Entitic volume (RBC) 86.9 fL Normal 80.0-100.0 [facility] Comment on above: Performed By: #### A CBC, ESR, BUN, CREAT, CREACT, FX ####[place] [address] Platelet mean volume Auto Entitic volume (Bld) 10.1 fL Normal 7.4-11.0 [facility] Comment on above: Performed By: #### A CBC, ESR, BUN, CREAT, CREACT, FX ####[place] [address] Platelets Auto #/vol (Bld) 130 /cmm Normal 130.0-400.0 [facility] Comment on above: Performed By: #### A CBC, ESR, BUN, CREAT, CREACT, FX ####[place] [address] RBC Auto #/vol (Bld) 3.01 /cmm Low 4.0-5.4 [facility] Comment on above: Performed By: #### A CBC, ESR, BUN, CREAT, CREACT, FX ####[place] [address] WBC Auto #/vol (Bld) 4.2 /cmm Normal 3.6-11.0 [facility] Comment on above: Performed By: #### A CBC, ESR, BUN, CREAT, CREACT, FX ####[place] [address] CREATININE,SERUMon 8 Creatinine mass conc 1.5 mg/dL High 0.52-1.04 [facility] Comment on above: Performed By: #### A CBC, ESR, BUN, CREAT, CREACT, FX ####[place] [address] EST. GFR, 50 ml/min/1.73sq.m Normal [facility] Comment on above: Performed By: #### A CBC, ESR, BUN, CREAT, CREACT, FX ####[place] [address] EST. GFR,Non 41 ml/min/1.73sq.m [facility] Comment on above: Performed By: #### A CBC, ESR, BUN, CREAT, CREACT, FX ####[place] [address] GFR/1.73 sq M predicted among non-blacks MDRD vol rate/area (S/P/Bld) Average GFR for 30-39 years old = 109. [facility] Comment on above: Result Comment: Stone Carver vasu Kidney disease, GFR = <60.Kidney failure, GFR = <15.The GFR estimate is not adjusted for extreme body surface area or acute process, nor has it been validated for women or ethnic groups other than and . Performed By: #### A CBC, ESR, BUN, CREAT, CREACT, FX ####[place] [address] ESRon 09-13-2018 ESR Velocity (Bld) 49 mm/h High 0-15 [facility] Comment on above: Performed By: #### A CBC, ESR, BUN, CREAT, CREACT, FX ####Testing performed at [place] [id number] FAX REQUESTon 09-13-2018 FAX TO FAX TO DR HARTMAN AT [phone] AND TO [facility] AT [phone] [facility] Comment on above: Performed By: #### P HY, BUN, CREAT, FX ####Testing performed at [address] [address] FAX REQUESTon 09-06-2018 FAX TO [phone] [facility] Comment on above: Performed By: #### F X ####Testing performed at [place] [id number] BLOOD UREA NITROGENon 2017 Urea nitrogen mass conc (Bld) 21 mg/dL High 7-20 [facility] Comment on above: Performed By: #### P HY, BUN, CREAT, FX ####Testing performed at [place] [id number] CREATININE,SERUMon 8 Creatinine mass conc 1.4 mg/dL High 0.52-1.04 [facility] Comment on above: Performed By: #### P HY, BUN, CREAT, FX ####Testing performed at [place] [id number] EST. GFR, 54 ml/min/1.73sq.m [facility] Comment on above: Performed By: #### P HY, BUN, CREAT, FX ####Testing performed at [place] [id number] EST. GFR,Non 44 ml/min/1.73sq.m [facility] Comment on above: Performed By: #### P HY, BUN, CREAT, FX ####[place] [address] GFR/1.73 sq M predicted among non-blacks MDRD vol rate/area (S/P/Bld) Average GFR for 30-39 years old = 109. [facility] Comment on above: Result Comment: Stone Carver vasu Kidney disease, GFR = <60.Kidney failure, GFR = <15.The GFR estimate is not adjusted for extreme body surface area or acute process, nor has it been validated for women or ethnic groups other than and . Performed By: #### P HY, BUN, CREAT, FX ####Testing performed at [place] [id number] FAX REQUESTon 08-31-2018 FAX TO [phone] [facility] Comment on above: Performed By: #### P HY, BUN, CREAT, FX ####Testing performed at [address] [address] KATERINE VINCENT PHYSICIANmateo 08-31-20 18 GAL [facility] PHYSICIAN DEVAN UP [facility] Comment on above: Performed By: #### P HY, BUN, CREAT, FX ####Testing performed at [address] [address] BUNon 08-27-2018 Urea nitrogen mass conc 24 mg/dL High 03-27 [facility] Comment on above: Performed By: #### 2 [id number] ####[id number] [place] [address] Creatinineon 08-27-2018 Creatinine mass conc 1.6 mg/dL High 0.5-1.1 [facility] Comment on above: Performed By: #### 2 [id number] ####[id number] [place] [address] eGFRon 08-27-2018 eGFR AA 43 mL/min/1.73 m2 [facility] Comment on above: Order Comment: Order added by Discern Expert. Performed By: #### 1 [id number] ####[id number] [place] [address] GFR/1.73 sq M predicted among non-blacks MDRD vol rate/area (S/P/Bld) 36 mL/min/1.73 m2 [facility] Comment on above: Order Comment: Order added by Discern Expert. Performed By: #### 1 [id number] ####OVIDIO [id number] [place] [address] Cult,Tissueon 08-26-2018 Cult,Tissue Specimen Description .TISSUE EPIDURAL [...] Trimethoprim/Sulfa <=10 SUSCEPTIBLE Vancomycin <=0.5 SUSCEPTIBLE Normal [facility] Comment on above: Performed By: #### L ACWB #### [facility] [employer] [facility] [place], [place] [id number] Cult,Tissue Specimen Description .SPINE .TISSUE T4 LAMINA [...] Trimethoprim/Sulfa <=10 SUSCEPTIBLE Vancomycin <=0.5 SUSCEPTIBLE Normal [facility] Comment on above: Performed By: #### L ACWB #### [facility] [employer] [address] [place] [address] Basic Metabolic Profon 08-25 (cont.) Normal [facility] Comment on above: Result Comment: Aver age GFR for 30-39 years old: 107 mL/min/1.73sq m Chronic Kidney Disease: <60 mL/min/1.73sq m Kidney failure: <15 mL/min/1.73sq m eGFR calculated using average adult body mass. Additional eGFR calculator available at: http://www.[employer]/multiple_crcl_2012.htm Performed By: #### L ACWB #### [facility] [employer] [address] [place] [address] Anion gap molar conc 14 mmol/L Normal 9-17 [facility] Comment on above: Performed By: #### L ACWB #### [facility] [address] [place] [address] Calcium mass conc 9.1 mg/dL Normal 8.6-10.[address] [facility] Comment on above: Performed By: #### L ACWB #### [facility] [employer] [address] [place] [address] Chloride molar conc 96 mmol/L Low 98-107 [facility] Comment on above: Performed By: #### L ACWB #### [facility] [address] [place] [address] CO2 molar conc 23 mmol/L Normal 20-31 [facility] Comment on above: Performed By: #### L ACWB #### [facility] [address] [place] [address] Creatinine mass conc 1.52 mg/dL High 0.50-0.90 [facility] Comment on above: Performed By: #### L ACWB #### [facility] [address] [place] [address] GFR, Amer 46 mL/min Low >60 [facility] Comment on above: Performed By: #### L ACWB #### [facility] [employer] [address] [place] [address] GFR,non Amer 38 mL/min Low >60 [facility] Comment on above: Performed By: #### L ACWB #### [facility] [employer] [address] [place] [address] Glucose mass conc 95 mg/dL Normal 70-[address] [facility] Comment on above: Performed By: #### L ACWB #### [facility] [employer] [address] [place] [address] Potassium molar conc 4.5 mmol/L Normal 3.7-5.3 [facility] Comment on above: Performed By: #### L ACWB #### [facility] [employer] [address] [place] [address] Sodium molar conc 133 mmol/L Low 135-[address] [facility] Comment on above: Performed By: #### L ACWB #### [facility] [employer] [address] [place] [address] Urea nitrogen mass conc 43 mg/dL High 6-20 [facility] Comment on above: Performed By: #### L ACWB #### [address] [address] BUN/CRE Ratio NOT REPORTED Normal - [facility] Comment on above: Performed By: #### L ACWB #### [address] [address] Staging: NOT REPORTED Normal [facility] Comment on above: Performed By: #### L ACWB #### [address] [address] CBC with Diffon 08-25-2018 Abs. Basophil 0.07 k/uL Normal 0.00-0.20 [facility] Comment on above: Performed By: #### L ACWB #### [address] [address] Abs.Imm.Granulocyte 0.08 k/uL Normal 0.00-0.30 [facility] Comment on above: Performed By: #### L ACWB #### [address] [address] Abs.Neutrophil (Seg) 5.77 k/uL Normal 1.50-8.10 [facility] Comment on above: Performed By: #### L ACWB #### [address] [address] Basophils/100 WBC (Bld) 1 % Normal 0-2 [facility] Comment on above: Performed By: #### L ACWB #### [address] [address] Eosinophils #/vol (Bld) 0.12 10*3/uL Normal 0.00-0.44 [facility] Comment on above: Performed By: #### L ACWB #### [address] [address] Eosinophils/100 WBC (Bld) 1 % Normal 1-4 [facility] Comment on above: Performed By: #### L ACWB #### [address] [address] Immature granulocytes #/vol (Bld) 1 % High 0 [facility] Comment on above: Performed By: #### L ACWB #### [address] [address] Lymphocytes #/vol (Bld) 1.83 10*3/uL Normal 1.10-3.70 [facility] Comment on above: Performed By: #### L ACWB #### [address] [address] Lymphocytes/100 WBC (Bld) 21 % Low 24-43 [facility] Comment on above: Performed By: #### L ACWB #### [address] [address] Monocytes #/vol (Bld) 0.92 10*3/uL Normal 0.10-1.20 [facility] Comment on above: Performed By: #### L ACWB #### [address] [address] Monocytes/100 WBC (Bld) 11 % Normal 3-12 [facility] Comment on above: Performed By: #### L ACWB #### [address] [address] Neutrophil (Seg) 66 % High 36-65 [facility] Comment on above: Performed By: #### L ACWB #### [address] [address] Erythrocyte distribution width Ratio (RBC) 14.6 % High 11.8-14.4 [facility] Comment on above: Performed By: #### L ACWB #### [address] [address] Hematocrit Volume Fraction (Bld) 32.6 % Low 36.3-47.1 [facility] Comment on above: Performed By: #### L ACWB #### [address] [address] Hemoglobin mass conc (Bld) 10.0 g/dL Low 11.9-15.1 [facility] Comment on above: Performed By: #### L ACWB #### [address] [address] MCH Entitic mass (RBC) 28.2 pg Normal 25.2-33.5 [facility] Comment on above: Performed By: #### L ACWB #### [address] [address] MCHC mass conc (RBC) 30.7 g/dL Normal 28.4-34.8 [facility] Comment on above: Performed By: #### L ACWB #### [address] [address] MCV Entitic volume (RBC) 91.8 fL Normal 82.6-102.9 [facility] Comment on above: Performed By: #### L ACWB #### [address] [address] NRBC Automated 0.0 per 100 WBC Normal 0.0 [facility] Comment on above: Performed By: #### L ACWB #### [address] [address] Platelet mean volume Entitic volume (Bld) 10.4 fL Normal 8.1-13.5 [facility] Comment on above: Performed By: #### L ACWB #### [address] [address] Platelets #/vol (Bld) 292 10*3/uL Normal 138-453 [facility] Comment on above: Performed By: #### L ACWB #### [address] [address] RBC #/vol (Bld) 3.55 10*6/uL Low 3.95-5.[address] [facility] Comment on above: Performed By: #### L ACWB #### [facility] [employer] [address] [place] [address] RBC morphology finding Nom (Bld) ANISOCYTOSIS PRESENT Normal [facility] Comment on above: Performed By: #### L ACWB #### [address] [address] WBC #/vol (Bld) 8.8 10*3/uL Normal 3.5-11.3 [facility] Comment on above: Performed By: #### L ACWB #### [address] [address] Auto Diff Performed NOT REPORTED Normal [facility] Comment on above: Performed By: #### L ACWB #### [address] [address] Platelets #/vol (Bld) NOT REPORTED Normal [facility] Comment on above: Performed By: #### L ACWB #### [facility] [employer] [address] [place] [address] WBC Morphology NOT REPORTED Normal [facility] Comment on above: Performed By: #### L ACWB #### [address] [address] Fungi,Direct Examon 08-25-20 18 Fungi,Direct Exam Specimen Description .SPINE .TISSUE T4 LAMINA Special Requests NOT REPORTED Direct Exam NO FUNGAL ELEMENTS SEEN Report Status FINAL 08/25/2018 Normal [facility] Comment on above: Performed By: #### L ACWB #### [facility] [place] [address] Magnesiumon 08-25-2018 Magnesium mass conc 2.4 mg/dL Normal 1.6-2.6 [facility] Comment on above: Performed By: #### L ACWB #### [facility] [employer] [address] [place] [address] Procalcitoninon 08-25-2018 Protein mass conc 0.13 ng/mL High <0.[address] [facility] Comment on above: Result Comment: [...] entered into the Change in Procalcitonin Calculator (www.sdnlsb-cir-ebpkndpztn.com) to determine the patient's Mortality Risk Prognosis Performed By: #### L ACWB #### [facility] [employer] [facility] [place] [address] Cult,Aerobe/Anaerobeon 08-24 Cult,Aerobe/Anaerobe Specimen Descriptio n .SPINE Special Requests NOT REPORTED Direct Exam DUPLICATE ORDER SEE RESULTS FOR TISSUE CULTURE Culture NOT REPORTED Report Status FINAL 08/24/2018 Normal [facility] Comment on above: Performed By: #### S PAG #### [facility] [employer] [address] [place] [address] Cult,Aerobe/Anaerobe Specimen Descriptio n .SPINE Special Requests NOT REPORTED Direct Exam DUPLICATE ORDER SEE RESUULTS FOR TISSUE CULTURE Culture NOT REPORTED Report Status FINAL 08/24/2018 Normal [facility] Comment on above: Performed By: #### S PAG #### [facility] [employer] [address] [place] [address] FLUORO FOR SURGICAL PROCEDUR ESon 08-24-2018 FLUORO FOR SURGICAL PROCEDURES Radiology exam is complete. No Radiologist dictation. Please follow up with ordering provider. Final result Normal [facility] OPERATIVE REPORTon 8 OPERATIVE REPORT [facility] [address] [place] [address] OPERATIVE REPORT PATIENT NAME: CELINA GASPAR : 1980 MED REC NO: [id number] ROOM: [facility] ACCOUNT NO: [id number] ADMIT DATE: 08/15/2018 PROVIDER: Lita Mccray MD DATE OF PROCEDURE: 08/23/2018 SURGEON: Lita Mccray MD MEDICAL ASSISTANT DERMATOLOGY: Eliel Larios DO PREOPERATIVE DIAGNOSIS: Epidural abscess, [...] satisfactory condition. LITA MCCRAY MD TA/V_SSNCK_I Doc#: [id number] CC: Lita Mccray MD Normal [facility] Procalcitoninon 08-24-2018 Protein mass conc 0.16 ng/mL High <0.[address] [facility] Comment on above: Result Comment: [...] entered into the Change in Procalcitonin Calculator (www.eixmpd-gpo-robcfohcyw.[employer]) to determine the patient's Mortality Risk Prognosis Performed By: #### S PAG #### [facility] [employer] [facility] [place], [place] [id number] Basic Metab w/rfx MGon 08-23 (cont.) Normal [facility] Comment on above: Result Comment: Aver age GFR for 30-39 years old: 107 mL/min/1.73sq m Chronic Kidney Disease: <60 mL/min/1.73sq m Kidney failure: <15 mL/min/1.73sq m eGFR calculated using average adult body mass. Additional eGFR calculator available at: http://www.[employer]/multiple_crcl_2012.htm Performed By: #### S PAG #### [employer] [address] [place], [place] [id number] Anion gap molar conc 14 mmol/L Normal 9-17 [facility] Comment on above: Performed By: #### S PAG #### [employer] [address] [place], [place] [phone] Calcium mass conc 9.9 mg/dL Normal 8.6-10.[address] [facility] Comment on above: Performed By: #### S PAG #### [facility] [employer] [address] [place] [address] Chloride molar conc 99 mmol/L Normal 98-107 [facility] Comment on above: Performed By: #### S PAG #### [facility] [employer] [facility] [place] [address] CO2 molar conc 26 mmol/L Normal 20-31 [facility] Comment on above: Performed By: #### S PAG #### [facility] [employer] [address] [place] [address] Creatinine mass conc 1.42 mg/dL High 0.50-0.90 [facility] Comment on above: Performed By: #### S PAG #### [facility] [employer] [address] [place] [address] GFR, Amer 50 mL/min Low >60 [facility] Comment on above: Performed By: #### S PAG #### [facility] [employer] [address] [place] [address] GFR,non Amer 41 mL/min Low >60 [facility] Comment on above: Performed By: #### S PAG #### [facility] [employer] [address] [place] [address] Glucose mass conc 95 mg/dL Normal 70-[address] [facility] Comment on above: Performed By: #### S PAG #### [facility] [employer] [address] [place] [address] Potassium molar conc 4.9 mmol/L Normal 3.7-5.3 [facility] Comment on above: Result Comment: SPEC IMEN SLIGHTLY HEMOLYZED, RESULTS MAY BE ADVERSELY AFFECTED. Performed By: #### S PAG #### [facility] [employer] [address] [place] [address] Sodium molar conc 139 mmol/L Normal 135-[address] [facility] Comment on above: Performed By: #### S PAG #### [address] [address] Urea nitrogen mass conc 31 mg/dL High 6-20 [facility] Comment on above: Performed By: #### S PAG #### [address] [address] BUN/CRE Ratio NOT REPORTED Normal 9- [facility] Comment on above: Performed By: #### S PAG #### [address] [address] Staging: NOT REPORTED Normal [facility] Comment on above: Performed By: #### S PAG #### [address] [address] CBC with Diffon 08-23-2018 Abs. Basophil 0.06 k/uL Normal 0.00-0.20 [facility] Comment on above: Performed By: #### S PAG #### [address] [address] Abs.Imm.Granulocyte 0.22 k/uL Normal 0.00-0.30 [facility] Comment on above: Performed By: #### S PAG #### [address] [address] Abs.Neutrophil (Seg) 4.43 k/uL Normal 1.50-8.10 [facility] Comment on above: Performed By: #### S PAG #### [address] [address] Basophils/100 WBC (Bld) 1 % Normal 0-2 [facility] Comment on above: Performed By: #### S PAG #### [address] [address] Eosinophils #/vol (Bld) 0.15 10*3/uL Normal 0.00-0.44 [facility] Comment on above: Performed By: #### S PAG #### [address] [address] Eosinophils/100 WBC (Bld) 2 % Normal 1-4 [facility] Comment on above: Performed By: #### S PAG #### [address] [address] Erythrocyte distribution width Ratio (RBC) 14.4 % Normal 11.8-14.4 [facility] Comment on above: Performed By: #### S PAG #### [address] [address] Hematocrit Volume Fraction (Bld) 33.2 % Low 36.3-47.1 [facility] Comment on above: Performed By: #### S PAG #### [address] [address] Hemoglobin mass conc (Bld) 10.4 g/dL Low 11.9-15.1 [facility] Comment on above: Performed By: #### S PAG #### [address] [address] Immature granulocytes #/vol (Bld) 3 % High 0 [facility] Comment on above: Performed By: #### S PAG #### [facility] [employer] [address] [place] [address] Lymphocytes #/vol (Bld) 2.22 10*3/uL Normal 1.10-3.70 [facility] Comment on above: Performed By: #### S PAG #### [address] [address] Lymphocytes/100 WBC (Bld) 29 % Normal 24-43 [facility] Comment on above: Performed By: #### S PAG #### [address] [address] MCH Entitic mass (RBC) 27.7 pg Normal 25.2-33.5 [facility] Comment on above: Performed By: #### S PAG #### [address] [address] MCHC mass conc (RBC) 31.3 g/dL Normal 28.4-34.8 [facility] Comment on above: Performed By: #### S PAG #### [address] [address] MCV Entitic volume (RBC) 88.3 fL Normal 82.6-102.9 [facility] Comment on above: Performed By: #### S PAG #### [address] [address] Monocytes #/vol (Bld) 0.63 10*3/uL Normal 0.10-1.20 [facility] Comment on above: Performed By: #### S PAG #### [address] [address] Monocytes/100 WBC (Bld) 8 % Normal 3-12 [facility] Comment on above: Performed By: #### S PAG #### [address] [address] Neutrophil (Seg) 57 % Normal 36-65 [facility] Comment on above: Performed By: #### S PAG #### [address] [address] NRBC Automated 0.0 per 100 WBC Normal 0.0 [facility] Comment on above: Performed By: #### S PAG #### [address] [address] Platelets #/vol (Bld) See Reflexed IPF Result Normal 138-453 [facility] Comment on above: Performed By: #### S PAG #### [address] [address] RBC #/vol (Bld) 3.76 10*6/uL Low 3.95-5.[address] [facility] Comment on above: Performed By: #### S PAG #### [address] [address] WBC #/vol (Bld) 7.7 10*3/uL Normal 3.5-11.3 [facility] Comment on above: Performed By: #### S PAG #### [address] [address] Auto Diff Performed NOT REPORTED Normal [facility] Comment on above: Performed By: #### S PAG #### [address] [address] Platelet mean volume Entitic volume (Bld) NOT REPORTED Normal 8.1-13.5 [facility] Comment on above: Performed By: #### S PAG #### [address] [address] Platelets #/vol (Bld) NOT REPORTED Normal [facility] Comment on above: Performed By: #### S PAG #### [address] [address] RBC morphology finding Nom (Bld) NOT REPORTED Normal [facility] Comment on above: Performed By: #### S PAG #### [address] [address] WBC Morphology NOT REPORTED Normal [facility] Comment on above: Performed By: #### S PAG #### [address] [address] Cult,Bloodon 08-23-2018 Cult,Blood Specimen Description .BLOOD Special Requests L AC 6ML Culture NO GROWTH 6 DAYS Report Status FINAL 08/23/2018 Normal [facility] Comment on above: Performed By: #### S PAG #### [address] [address] Cult,Blood Specimen Description .BLOOD Special Requests L FOREARM 6ML Culture NO GROWTH 6 DAYS Report Status FINAL 08/23/2018 Normal [facility] Comment on above: Performed By: #### S PAG #### [address] [address] PLT, Immature Fract.on 08-23 Platelet, Fluoresc. 113 k/uL Low 138-453 [facility] Comment on above: Performed By: #### S PAG #### [address] [address] PLT, Immature Fract. 3.7 % Normal 1.1-10.3 [facility] Comment on above: Performed By: #### S PAG #### [address] [address] CBC with Diffon 08-22-2018 Abs. Basophil 0.00 k/uL Normal 0.0-0.2 [facility] Comment on above: Performed By: #### U LAG #### [address] [address] Abs.Imm.Granulocyte 0.30 k/uL Normal 0.00-0.30 [facility] Comment on above: Performed By: #### U LAG #### [address] [address] Abs.Neutrophil (Seg) 4.87 k/uL Normal 1.8-7.7 [facility] Comment on above: Performed By: #### U LAG #### [address] [address] Basophils/100 WBC (Bld) 0 % Normal 0-2 [facility] Comment on above: Performed By: #### U LAG #### [address] [address] Eosinophils #/vol (Bld) 0.00 10*3/uL Normal 0.0-0.4 [facility] Comment on above: Performed By: #### U LAG #### [address] [address] Eosinophils/100 WBC (Bld) 0 % Low 1-4 [facility] Comment on above: Performed By: #### U LAG #### [address] [address] Immature granulocytes #/vol (Bld) 4 % High 0 [facility] Comment on above: Performed By: #### U LAG #### [address] [address] Lymphocytes #/vol (Bld) 1.88 10*3/uL Normal 1.0-4.8 [facility] Comment on above: Performed By: #### U LAG #### [address] [address] Lymphocytes/100 WBC (Bld) 25 % Normal 24-44 [facility] Comment on above: Performed By: #### U LAG #### [address] [address] Monocytes #/vol (Bld) 0.45 10*3/uL Normal 0.1-0.8 [facility] Comment on above: Performed By: #### U LAG #### [address] [address] Monocytes/100 WBC (Bld) 6 % Normal 1-7 [facility] Comment on above: Performed By: #### U LAG #### [address] [place] [address] Morphology Interp Rehan (Bld) ANISOCYTOSIS PRESENT Normal [facility] Comment on above: Performed By: #### U LAG #### [address] [address] Neutrophil (Seg) 65 % Normal 36-66 [facility] Comment on above: Performed By: #### U LAG #### [address] [address] Erythrocyte distribution width Ratio (RBC) 14.5 % High 11.8-14.4 [facility] Comment on above: Performed By: #### U LAG #### [address] [address] Hematocrit Volume Fraction (Bld) 38.1 % Normal 36.3-47.1 [facility] Comment on above: Performed By: #### U LAG #### [address] [address] Hemoglobin mass conc (Bld) 11.5 g/dL Low 11.9-15.1 [facility] Comment on above: Performed By: #### U LAG #### [address] [address] MCH Entitic mass (RBC) 28.3 pg Normal 25.2-33.5 [facility] Comment on above: Performed By: #### U LAG #### [address] [address] MCHC mass conc (RBC) 30.2 g/dL Normal 28.4-34.8 [facility] Comment on above: Performed By: #### U LAG #### [address] [address] MCV Entitic volume (RBC) 93.6 fL Normal 82.6-102.9 [facility] Comment on above: Performed By: #### U LAG #### [address] [address] NRBC Automated 0.0 per 100 WBC Normal 0.0 [facility] Comment on above: Performed By: #### U LAG #### [address] [address] Platelet mean volume Entitic volume (Bld) 10.7 fL Normal 8.1-13.5 [facility] Comment on above: Performed By: #### U LAG #### [address] [address] Platelets #/vol (Bld) 265 10*3/uL Normal 138-453 [facility] Comment on above: Performed By: #### U LAG #### [address] [address] RBC #/vol (Bld) 4.07 10*6/uL Normal 3.95-5.[address] [facility] Comment on above: Performed By: #### U LAG #### [address] [address] WBC #/vol (Bld) 7.5 10*3/uL Normal 3.5-11.3 [facility] Comment on above: Performed By: #### U LAG #### [address] [address] Auto Diff Performed NOT REPORTED Normal [facility] Comment on above: Performed By: #### U LAG #### [address] [address] Platelets #/vol (Bld) NOT REPORTED Normal [facility] Comment on above: Performed By: #### U LAG #### [address] [address] RBC morphology finding Nom (Bld) NOT REPORTED Normal [facility] Comment on above: Performed By: #### U LAG #### [address] [address] WBC Morphology NOT REPORTED Normal [facility] Comment on above: Performed By: #### U LAG #### [address] [address] Comp Metabolic Pr/rfx MGon 1 10-22-2017 Albumin mass conc 3.2 g/dL Low 3.5-5.[address] [facility] Comment on above: Performed By: #### U LAG #### [address] [address] Albumin/Globulin mass ratio 0.8 {ratio} Low 1.0-2.5 [facility] Comment on above: Performed By: #### U LAG #### [address] [address] Alkaline Phos 90 U/L Normal 35-104 [facility] Comment on above: Performed By: #### U LAG #### [address] [address] ALT enzyme act/vol 18 U/L Normal 5-33 [facility] Comment on above: Performed By: #### U LAG #### [facility] [employer] [address] [place] [address] AST enzyme act/vol 16 U/L Normal <32 [facility] Comment on above: Performed By: #### U LAG #### [facility] [employer] [address] [place] [address] Protein mass conc 7.0 g/dL Normal 6.4-8.[address] [facility] Comment on above: Performed By: #### U LAG #### [facility] [employer] [address] [place] [address] (cont.) Normal [facility] Comment on above: Result Comment: Aver age GFR for 30-39 years old: 107 mL/min/1.73sq m Chronic Kidney Disease: <60 mL/min/1.73sq m Kidney failure: <15 mL/min/1.73sq m eGFR calculated using average adult body mass. Additional eGFR calculator available at: http://www.[employer]/multiple_crcl_2012.htm Performed By: #### U LAG #### [employer] [address] [place] [address] Anion gap molar conc 15 mmol/L Normal 9-17 [facility] Comment on above: Performed By: #### U LAG #### [employer] [address] [place] [address] Bilirubin Ql (U) 0.34 mg/dL Normal 0.3-1.2 [facility] Comment on above: Performed By: #### U LAG #### [employer] [address] [place] [address] Calcium mass conc 9.7 mg/dL Normal 8.6-10.[address] [facility] Comment on above: Performed By: #### U LAG #### [employer] [address] [place] [address] Chloride molar conc 100 mmol/L Normal 98-107 [facility] Comment on above: Performed By: #### U LAG #### [employer] [address] [place] [address] CO2 molar conc 24 mmol/L Normal 20-31 [facility] Comment on above: Performed By: #### U LAG #### [employer] [address] [place] [address] Creatinine mass conc 1.02 mg/dL High 0.50-0.90 [facility] Comment on above: Performed By: #### U LAG #### [employer] [address] [place] [address] GFR, Amer >60 Normal >60 [facility] Comment on above: Performed By: #### U LAG #### [facility] [employer] [address] [place] [address] GFR,non Amer >60 Normal >60 [facility] Comment on above: Performed By: #### U LAG #### [facility] [employer] [address] [place] [address] Glucose mass conc 101 mg/dL High 70-[address] [facility] Comment on above: Performed By: #### U LAG #### [facility] [employer] [address] [place] [address] Potassium molar conc 4.5 mmol/L Normal 3.7-5.3 [facility] Comment on above: Performed By: #### U LAG #### [facility] [employer] [address] [place] [address] Sodium molar conc 139 mmol/L Normal 135-[address] [facility] Comment on above: Performed By: #### U LAG #### [facility] [employer] [address] [place] [address] Urea nitrogen mass conc 19 mg/dL Normal 6-20 [facility] Comment on above: Performed By: #### U LAG #### [facility] [employer] [address] [place] [address] BUN/CRE Ratio NOT REPORTED Normal 9-20 [facility] Comment on above: Performed By: #### U LAG #### [facility] [employer] [address] [place] [address] Staging: NOT REPORTED Normal [facility] Comment on above: Performed By: #### U LAG #### [facility] [employer] [address] [place] [address] Magnesiumon 11-18-2018 Magnesium mass conc 2.4 mg/dL Normal 1.6-2.6 [facility] Comment on above: Performed By: #### U LAG #### [facility] [employer] [address] [place] [address] Vancomycin Troughon 08-22-20 18 Vancomycin Trough 20.2 ug/mL Critically high 10.0-20.0 [facility] Comment on above: Result Comment: High er trough serum vancomycin concentrations of 15-20 ug/mL are recommended for complicated infections such as bacteremia, endocarditis, osteomyelitis, meningitis, and hospital acquired pneumonia. ADDED ON Performed By: #### U LAG #### [facility] [employer] [address] [place] [address] Date last dose, NOT REPORTED Normal [facility] Comment on above: Performed By: #### U LAG #### [facility] [employer] [address] [place] [address] Dose amount, NOT REPORTED Normal [facility] Comment on above: Performed By: #### U LAG #### [facility] [employer] [address] [place] [address] Time last dose, NOT REPORTED Normal [facility] Comment on above: Performed By: #### U LAG #### [facility] [employer] [address] [place] [address] CBC with Diffon 08-21-2018 Abs. Basophil 0.08 k/uL Normal 0.00-0.20 [facility] Comment on above: Performed By: #### U LAG #### [facility] [employer] [address] [place] [address] Abs.Imm.Granulocyte 0.50 k/uL High 0.00-0.30 [facility] Comment on above: Performed By: #### U LAG #### [address] [address] Abs.Neutrophil (Seg) 4.73 k/uL Normal 1.50-8.10 [facility] Comment on above: Performed By: #### U LAG #### [address] [address] Basophils/100 WBC (Bld) 1 % Normal 0-2 [facility] Comment on above: Performed By: #### U LAG #### [address] [address] Eosinophils #/vol (Bld) 0.17 10*3/uL Normal 0.00-0.44 [facility] Comment on above: Performed By: #### U LAG #### [address] [address] Eosinophils/100 WBC (Bld) 2 % Normal 1-4 [facility] Comment on above: Performed By: #### U LAG #### [address] [address] Immature granulocytes #/vol (Bld) 6 % High 0 [facility] Comment on above: Performed By: #### U LAG #### [address] [address] Lymphocytes #/vol (Bld) 2.24 10*3/uL Normal 1.10-3.70 [facility] Comment on above: Performed By: #### U LAG #### [address] [address] Lymphocytes/100 WBC (Bld) 27 % Normal 24-43 [facility] Comment on above: Performed By: #### U LAG #### [address] [address] Monocytes #/vol (Bld) 0.58 10*3/uL Normal 0.10-1.20 [facility] Comment on above: Performed By: #### U LAG #### [facility] [address] [place] [address] Monocytes/100 WBC (Bld) 7 % Normal 3-12 [facility] Comment on above: Performed By: #### U LAG #### [address] [address] Morphology Interp Rehan (Bld) ANISOCYTOSIS PRESENT Normal [facility] Comment on above: Performed By: #### U LAG #### [facility] [employer] [address] [place] [address] Neutrophil (Seg) 57 % Normal 36-65 [facility] Comment on above: Performed By: #### U LAG #### [address] [address] Erythrocyte distribution width Ratio (RBC) 14.6 % High 11.8-14.4 [facility] Comment on above: Performed By: #### U LAG #### [address] [address] Hematocrit Volume Fraction (Bld) 38.5 % Normal 36.3-47.1 [facility] Comment on above: Performed By: #### U LAG #### [address] [address] Hemoglobin mass conc (Bld) 11.5 g/dL Low 11.9-15.1 [facility] Comment on above: Performed By: #### U LAG #### [address] [address] MCH Entitic mass (RBC) 28.2 pg Normal 25.2-33.5 [facility] Comment on above: Performed By: #### U LAG #### [address] [address] MCHC mass conc (RBC) 29.9 g/dL Normal 28.4-34.8 [facility] Comment on above: Performed By: #### U LAG #### [address] [address] MCV Entitic volume (RBC) 94.4 fL Normal 82.6-102.9 [facility] Comment on above: Performed By: #### U LAG #### [address] [address] NRBC Automated 0.0 per 100 WBC Normal 0.0 [facility] Comment on above: Performed By: #### U LAG #### [address] [address] Platelet mean volume Entitic volume (Bld) 10.5 fL Normal 8.1-13.5 [facility] Comment on above: Performed By: #### U LAG #### [address] [address] Platelets #/vol (Bld) 264 10*3/uL Normal 138-453 [facility] Comment on above: Performed By: #### U LAG #### [address] [address] RBC #/vol (Bld) 4.08 10*6/uL Normal 3.95-5.[address] [facility] Comment on above: Performed By: #### U LAG #### [address] [address] WBC #/vol (Bld) 8.3 10*3/uL Normal 3.5-11.3 [facility] Comment on above: Performed By: #### U LAG #### [address] [address] Auto Diff Performed NOT REPORTED Normal [facility] Comment on above: Performed By: #### U LAG #### [address] [address] Platelets #/vol (Bld) NOT REPORTED Normal [facility] Comment on above: Performed By: #### U LAG #### [facility] [employer] [address] [place] [address] RBC morphology finding Nom (Bld) NOT REPORTED Normal [facility] Comment on above: Performed By: #### U LAG #### [facility] [employer] [address] [place] [address] WBC Morphology NOT REPORTED Normal [facility] Comment on above: Performed By: #### U LAG #### [facility] [employer] [address] [place] [address] Comp Metabolic Pr/rfx MGon 1 10-21-2017 (cont.) Normal [facility] Comment on above: Result Comment: Aver age GFR for 30-39 years old: 107 mL/min/1.73sq m Chronic Kidney Disease: <60 mL/min/1.73sq m Kidney failure: <15 mL/min/1.73sq m eGFR calculated using average adult body mass. Additional eGFR calculator available at: http://www.[employer]/multiple_crcl_2012.htm Performed By: #### U LAG #### [facility] [employer] [address] [place] [address] Albumin mass conc 2.9 g/dL Low 3.5-5.[address] [facility] Comment on above: Performed By: #### U LAG #### [facility] [employer] [address] [place] [address] Albumin/Globulin mass ratio 0.7 {ratio} Low 1.0-2.5 [facility] Comment on above: Performed By: #### U LAG #### [facility] [employer] [address] [place] [address] Alkaline Phos 98 U/L Normal 35-104 [facility] Comment on above: Performed By: #### U LAG #### [facility] [place] [address] ALT enzyme act/vol 19 U/L Normal 5-33 [facility] Comment on above: Performed By: #### U LAG #### [facility] [address] [place] [address] Anion gap molar conc 14 mmol/L Normal 9-17 [facility] Comment on above: Performed By: #### U LAG #### [facility] [address] [place] [address] AST enzyme act/vol 21 U/L Normal <32 [facility] Comment on above: Performed By: #### U LAG #### [facility] [address] [place] [address] Bilirubin Ql (U) 0.32 mg/dL Normal 0.3-1.2 [facility] Comment on above: Performed By: #### U LAG #### [facility] [employer] [address] [place] [address] Calcium mass conc 9.1 mg/dL Normal 8.6-10.[address] [facility] Comment on above: Performed By: #### U LAG #### [employer] [address] [place] [address] Chloride molar conc 102 mmol/L Normal 98-107 [facility] Comment on above: Performed By: #### U LAG #### [employer] [address] [place] [address] CO2 molar conc 23 mmol/L Normal 20-31 [facility] Comment on above: Performed By: #### U LAG #### [employer] [address] [place] [address] Creatinine mass conc 0.90 mg/dL Normal 0.50-0.90 [facility] Comment on above: Performed By: #### U LAG #### [employer] [facility] [place] [address] GFR, Amer >60 Normal >60 [facility] Comment on above: Performed By: #### U LAG #### [facility] [employer] [address] [place] [address] GFR,non Amer >60 Normal >60 [facility] Comment on above: Performed By: #### U LAG #### [facility] [employer] [address] [place] [address] Glucose mass conc 108 mg/dL High 70-[address] [facility] Comment on above: Performed By: #### U LAG #### [facility] [employer] [address] [place] [address] Potassium molar conc 4.6 mmol/L Normal 3.7-5.3 [facility] Comment on above: Performed By: #### U LAG #### [facility] [employer] [address] [place] [address]56 Protein mass conc 6.9 g/dL Normal 6.4-8.[address] [facility] Comment on above: Performed By: #### U LAG #### [facility] [employer] [address] [place] [address]75 Sodium molar conc 139 mmol/L Normal 135-[address] [facility] Comment on above: Performed By: #### U LAG #### [facility] [address] [place] [address] Urea nitrogen mass conc 17 mg/dL Normal 6-20 [facility] Comment on above: Performed By: #### U LAG #### [facility] [employer] [address] [place] [address]592 BUN/CRE Ratio NOT REPORTED Normal 9-20 [facility] Comment on above: Performed By: #### U LAG #### [facility] [employer] [address] [place] [address]23 Staging: NOT REPORTED Normal [facility] Comment on above: Performed By: #### U LAG #### [employer] [address] [place] [address] Cult,Bloodon 08-21-2018 Cult,Blood Specimen Description .BLOOD Special Requests L AC 20ML Culture POSITIVE Blood Culture CALLED TO MIS Medina [id number] DIRECT GRAM STAIN FROM BOTTLE: GRAM POSITIVE COCCI IN CLUSTERS METHICILLIN RESISTANT STAPHYLOCOCCUS AUREUS For susceptibility, refer to previous culture. Report Status FINAL 08/21/2018 Normal [facility] Comment on above: Performed By: #### U LAG #### [employer] [address] [place] [address] MRI FOOT LEFT W WO CONTRASTo n [...] Murali Goff MD 08/21/18 Final result Normal [facility] Magnesiumon 08-21-2018 Magnesium mass conc 2.4 mg/dL Normal 1.6-2.6 [facility] Comment on above: Performed By: #### U LAG #### [facility] [employer] [facility] [place] [address] Procalcitoninon 08-21-2018 Protein mass conc 0.27 ng/mL High <0.[address] [facility] Comment on above: Result Comment: [...] entered into the Change in Procalcitonin Calculator ([email or web address]-hqe-eekhtucvnp.com) to determine the patient's Mortality Risk Prognosis Performed By: #### U LAG #### [address] [address] C-Reactive Proteinon 018 CRP mass conc 50.4 mg/L High 0.0-5.0 [facility] Comment on above: Performed By: #### L ACDS, TROPI, PRCAL, MYCM #### [place] [address] CBC with Diffon 08-20-2018 Abs. Basophil 0.08 k/uL Normal 0.0-0.2 [facility] Comment on above: Performed By: #### L ACDS, TROPI, PRCAL, MYCM #### [address] [address] Abs.Imm.Granulocyte 0.42 k/uL High 0.00-0.30 [facility] Comment on above: Performed By: #### L ACDS, TROPI, PRCAL, MYCM #### [address] [address] Abs.Neutrophil (Seg) 4.57 k/uL Normal 1.8-7.7 [facility] Comment on above: Performed By: #### L ACDS, TROPI, PRCAL, MYCM #### [address] [address] Basophils/100 WBC (Bld) 1 % Normal 0-2 [facility] Comment on above: Performed By: #### L ACDS, TROPI, PRCAL, MYCM #### [facility] [employer] [address] [place] [address] Eosinophils #/vol (Bld) 0.25 10*3/uL Normal 0.0-0.4 [facility] Comment on above: Performed By: #### L ACDS, TROPI, PRCAL, MYCM #### [address] [address] Eosinophils/100 WBC (Bld) 3 % Normal 1-4 [facility] Comment on above: Performed By: #### L ACDS, TROPI, PRCAL, MYCM #### [address] [address] Immature granulocytes #/vol (Bld) 5 % High 0 [facility] Comment on above: Performed By: #### L ACDS, TROPI, PRCAL, MYCM #### [address] [address] Lymphocytes #/vol (Bld) 2.32 10*3/uL Normal 1.0-4.8 [facility] Comment on above: Performed By: #### L ACDS, TROPI, PRCAL, MYCM #### [address] [address] Lymphocytes/100 WBC (Bld) 28 % Normal 24-44 [facility] Comment on above: Performed By: #### L ACDS, TROPI, PRCAL, MYCM #### [address] [address] Monocytes #/vol (Bld) 0.66 10*3/uL Normal 0.1-0.8 [facility] Comment on above: Performed By: #### L ACDS, TROPI, PRCAL, MYCM #### [address] [address] Monocytes/100 WBC (Bld) 8 % High 1-7 [facility] Comment on above: Performed By: #### L ACDS, TROPI, PRCAL, MYCM #### [address] [address] Morphology Interp Rehan (Bld) ANISOCYTOSIS PRESENT Normal [facility] Comment on above: Performed By: #### L ACDS, TROPI, PRCAL, MYCM #### [address] [address] Neutrophil (Seg) 55 % Normal 36-66 [facility] Comment on above: Performed By: #### L ACDS, TROPI, PRCAL, MYCM #### [address] [address] Erythrocyte distribution width Ratio (RBC) 14.6 % High 11.8-14.4 [facility] Comment on above: Performed By: #### L ACDS, TROPI, PRCAL, MYCM #### [facility] [employer] [address] [place] [address] Hematocrit Volume Fraction (Bld) 33.5 % Low 36.3-47.1 [facility] Comment on above: Performed By: #### L ACDS, TROPI, PRCAL, MYCM #### [address] [address] Hemoglobin mass conc (Bld) 10.2 g/dL Low 11.9-15.1 [facility] Comment on above: Performed By: #### L ACDS, TROPI, PRCAL, MYCM #### [address] [address] MCH Entitic mass (RBC) 27.9 pg Normal 25.2-33.5 [facility] Comment on above: Performed By: #### L ACDS, TROPI, PRCAL, MYCM #### [address] [address] MCHC mass conc (RBC) 30.4 g/dL Normal 28.4-34.8 [facility] Comment on above: Performed By: #### L ACDS, TROPI, PRCAL, MYCM #### [facility] [employer] [address] [place] [address] MCV Entitic volume (RBC) 91.5 fL Normal 82.6-102.9 [facility] Comment on above: Performed By: #### L ACDS, TROPI, PRCAL, MYCM #### [facility] [employer] [address] [place] [address] NRBC Automated 0.0 per 100 WBC Normal 0.0 [facility] Comment on above: Performed By: #### L ACDS, TROPI, PRCAL, MYCM #### [facility] [employer] [address] [place] [address] Platelet mean volume Entitic volume (Bld) 11.0 fL Normal 8.1-13.5 [facility] Comment on above: Performed By: #### L ACDS, TROPI, PRCAL, MYCM #### [address] [address] Platelets #/vol (Bld) 211 10*3/uL Normal 138-453 [facility] Comment on above: Performed By: #### L ACDS, TROPI, PRCAL, MYCM #### [address] [address] RBC #/vol (Bld) 3.66 10*6/uL Low 3.95-5.[address] [facility] Comment on above: Performed By: #### L ACDS, TROPI, PRCAL, MYCM #### [facility] [employer] [address] [place] [address] WBC #/vol (Bld) 8.3 10*3/uL Normal 3.5-11.3 [facility] Comment on above: Performed By: #### L ACDS, TROPI, PRCAL, MYCM #### [facility] [employer] [address] [place] [address] Auto Diff Performed NOT REPORTED Normal [facility] Comment on above: Performed By: #### L ACDS, TROPI, PRCAL, MYCM #### [facility] [employer] [address] [place] [address] Platelets #/vol (Bld) NOT REPORTED Normal [facility] Comment on above: Performed By: #### L ACDS, TROPI, PRCAL, MYCM #### [facility] [employer] [address] [place] [address] RBC morphology finding Nom (Bld) NOT REPORTED Normal [facility] Comment on above: Performed By: #### L ACDS, TROPI, PRCAL, MYCM #### [facility] [employer] [address] [place] [address] WBC Morphology NOT REPORTED Normal [facility] Comment on above: Performed By: #### L ACDS, TROPI, PRCAL, MYCM #### [address] [address] Comp Metabolic Pr/rfx MGon 1 10-20-2017 (cont.) Normal [facility] Comment on above: Result Comment: Aver age GFR for 30-39 years old: 107 mL/min/1.73sq m Chronic Kidney Disease: <60 mL/min/1.73sq m Kidney failure: <15 mL/min/1.73sq m eGFR calculated using average adult body mass. Additional eGFR calculator available at: http://www.jiffstore.com/multiple_crcl_2012.htm Performed By: #### L ACDS, TROPI, PRCAL, MYCM #### [facility] [employer] [address] [place] [address] Albumin mass conc 3.1 g/dL Low 3.5-5.[address] [facility] Comment on above: Performed By: #### L ACDS, TROPI, PRCAL, MYCM #### [facility] [employer] [address] [place] [address] Albumin/Globulin mass ratio 0.9 {ratio} Low 1.0-2.5 [facility] Comment on above: Performed By: #### L ACDS, TROPI, PRCAL, MYCM #### [facility] [employer] [address] [place] [address] Alkaline Phos 83 U/L Normal 35-104 [facility] Comment on above: Performed By: #### L ACDS, TROPI, PRCAL, MYCM #### [facility] [employer] [address] [place] [address] ALT enzyme act/vol 17 U/L Normal 5-33 [facility] Comment on above: Performed By: #### L ACDS, TROPI, PRCAL, MYCM #### [facility] [employer] [address] [place] [address] Anion gap molar conc 11 mmol/L Normal 9-17 [facility] Comment on above: Performed By: #### L ACDS, TROPI, PRCAL, MYCM #### [facility] [employer] [address] [place] [address] AST enzyme act/vol 18 U/L Normal <32 [facility] Comment on above: Performed By: #### L ACDS, TROPI, PRCAL, MYCM #### [facility] [employer] [address] [place] [address] Bilirubin Ql (U) 0.29 mg/dL Low 0.3-1.2 [facility] Comment on above: Performed By: #### L ACDS, TROPI, PRCAL, MYCM #### [facility] [employer] [address] [place] [address] Calcium mass conc 9.0 mg/dL Normal 8.6-10.[address] [facility] Comment on above: Performed By: #### L ACDS, TROPI, PRCAL, MYCM #### [facility] [employer] [address] [place] [address] Chloride molar conc 101 mmol/L Normal 98-107 [facility] Comment on above: Performed By: #### L ACDS, TROPI, PRCAL, MYCM #### [facility] [employer] [address] [place] [address] CO2 molar conc 27 mmol/L Normal 20-31 [facility] Comment on above: Performed By: #### L ACDS, TROPI, PRCAL, MYCM #### [facility] [employer] [address] [place] [address] Creatinine mass conc 0.97 mg/dL High 0.50-0.90 [facility] Comment on above: Performed By: #### L ACDS, TROPI, PRCAL, MYCM #### [facility] [employer] [address] [place] [address] GFR, Amer >60 Normal >60 [facility] Comment on above: Performed By: #### L ACDS, TROPI, PRCAL, MYCM #### [facility] [employer] [address] [place] [address] GFR,non Amer >60 Normal >60 [facility] Comment on above: Performed By: #### L ACDS, TROPI, PRCAL, MYCM #### [facility] [employer] [address] [place] [address] Glucose mass conc 105 mg/dL High 70-[address] [facility] Comment on above: Performed By: #### L ACDS, TROPI, PRCAL, MYCM #### [facility] [employer] [address] [place] [address] Potassium molar conc 4.4 mmol/L Normal 3.7-5.3 [facility] Comment on above: Performed By: #### L ACDS, TROPI, PRCAL, MYCM #### [facility] [employer] [address] [place] [address] Protein mass conc 6.6 g/dL Normal 6.4-8.[address] [facility] Comment on above: Performed By: #### L ACDS, TROPI, PRCAL, MYCM #### [facility] [address] [place] [address] Sodium molar conc 139 mmol/L Normal 135-[address] [facility] Comment on above: Performed By: #### L ACDS, TROPI, PRCAL, MYCM #### [employer] [address] [place] [address] Urea nitrogen mass conc 15 mg/dL Normal -20 [facility] Comment on above: Performed By: #### L ACDS, TROPI, PRCAL, MYCM #### [facility] [address] [place] [address] BUN/CRE Ratio NOT REPORTED Normal 06-24 [facility] Comment on above: Performed By: #### L ACDS, TROPI, PRCAL, MYCM #### [employer] [address] [place] [address] Staging: NOT REPORTED Normal [facility] Comment on above: Performed By: #### L ACDS, TROPI, PRCAL, MYCM #### [employer] [address] [place] [address] Magnesiumon 08-20-2018 Magnesium mass conc 2.2 mg/dL Normal 1.6-2.6 [facility] Comment on above: Performed By: #### L ACDS, TROPI, PRCAL, MYCM #### [employer] [address] [place] [address] Sedimentation Rateon 018 Sedimentation Rate 100 mm High 0-20 [facility] Comment on above: Performed By: #### L ACDS, TROPI, PRCAL, MYCM #### [facility] [address] [place] [address] XR FOOT LEFT (MIN 3 VIEWS)on 08-20-2018 [...] No acute osseous abnormality. Interpreted by: Andrey Aneglo MD Signed by: Andrey Angelo MD 08/20/18 Final result Normal [facility] CBC with Diffon 08-19-2018 Abs. Basophil 0.00 k/uL Normal 0.0-0.2 [facility] Comment on above: Performed By: #### L ACDS, TROPI, PRCAL, MYCM #### [place] [address] Abs.Imm.Granulocyte 0.42 k/uL High 0.00-0.30 [facility] Comment on above: Performed By: #### L ACDS, TROPI, PRCAL, MYCM #### [place] [address] Abs.Neutrophil (Seg) 2.70 k/uL Normal 1.8-7.7 [facility] Comment on above: Performed By: #### L ACDS, TROPI, PRCAL, MYCM #### [facility] [employer] [address] [place] [address] Basophils/100 WBC (Bld) 0 % Normal 0-2 [facility] Comment on above: Performed By: #### L ACDS, TROPI, PRCAL, MYCM #### [facility] [employer] [address] [place] [address] Eosinophils #/vol (Bld) 0.30 10*3/uL Normal 0.0-0.4 [facility] Comment on above: Performed By: #### L ACDS, TROPI, PRCAL, MYCM #### [address] [address] Eosinophils/100 WBC (Bld) 5 % High 1-4 [facility] Comment on above: Performed By: #### L ACDS, TROPI, PRCAL, MYCM #### [address] [address] Immature granulocytes #/vol (Bld) 7 % High 0 [facility] Comment on above: Performed By: #### L ACDS, TROPI, PRCAL, MYCM #### [address] [address] Lymphocytes #/vol (Bld) 2.22 10*3/uL Normal 1.0-4.8 [facility] Comment on above: Performed By: #### L ACDS, TROPI, PRCAL, MYCM #### [address] [address] Lymphocytes/100 WBC (Bld) 37 % Normal 24-44 [facility] Comment on above: Performed By: #### L ACDS, TROPI, PRCAL, MYCM #### [address] [address] Monocytes #/vol (Bld) 0.36 10*3/uL Normal 0.1-0.8 [facility] Comment on above: Performed By: #### L ACDS, TROPI, PRCAL, MYCM #### [address] [address] Monocytes/100 WBC (Bld) 6 % Normal 1-7 [facility] Comment on above: Performed By: #### L ACDS, TROPI, PRCAL, MYCM #### [address] [address] Morphology Interp Rehan (Bld) ANISOCYTOSIS PRESENT Normal [facility] Comment on above: Performed By: #### L ACDS, TROPI, PRCAL, MYCM #### [address] [address] Neutrophil (Seg) 45 % Normal 36-66 [facility] Comment on above: Performed By: #### L ACDS, TROPI, PRCAL, MYCM #### [address] [address] Erythrocyte distribution width Ratio (RBC) 14.6 % High 11.8-14.4 [facility] Comment on above: Performed By: #### L ACDS, TROPI, PRCAL, MYCM #### [address] [address] Hematocrit Volume Fraction (Bld) 34.4 % Low 36.3-47.1 [facility] Comment on above: Performed By: #### L ACDS, TROPI, PRCAL, MYCM #### [address] [address] Hemoglobin mass conc (Bld) 10.4 g/dL Low 11.9-15.1 [facility] Comment on above: Performed By: #### L ACDS, TROPI, PRCAL, MYCM #### [address] [address] MCH Entitic mass (RBC) 28.0 pg Normal 25.2-33.5 [facility] Comment on above: Performed By: #### L ACDS, TROPI, PRCAL, MYCM #### [address] [address] MCHC mass conc (RBC) 30.2 g/dL Normal 28.4-34.8 [facility] Comment on above: Performed By: #### L ACDS, TROPI, PRCAL, MYCM #### [address] [address] MCV Entitic volume (RBC) 92.7 fL Normal 82.6-102.9 [facility] Comment on above: Performed By: #### L ACDS, TROPI, PRCAL, MYCM #### [address] [address] NRBC Automated 0.3 per 100 WBC High 0.0 [facility] Comment on above: Performed By: #### L ACDS, TROPI, PRCAL, MYCM #### [address] [address] Platelet mean volume Entitic volume (Bld) 10.5 fL Normal 8.1-13.5 [facility] Comment on above: Performed By: #### L ACDS, TROPI, PRCAL, MYCM #### [address] [address] Platelets #/vol (Bld) 168 10*3/uL Normal 138-453 [facility] Comment on above: Performed By: #### L ACDS, TROPI, PRCAL, MYCM #### [address] [address] RBC #/vol (Bld) 3.71 10*6/uL Low 3.95-5.[address] [facility] Comment on above: Performed By: #### L ACDS, TROPI, PRCAL, MYCM #### [address] [address] WBC #/vol (Bld) 6.0 10*3/uL Normal 3.5-11.3 [facility] Comment on above: Performed By: #### L ACDS, TROPI, PRCAL, MYCM #### [address] [address] Auto Diff Performed NOT REPORTED Normal [facility] Comment on above: Performed By: #### L ACDS, TROPI, PRCAL, MYCM #### [facility] [employer] [address] [place] [address] Platelets #/vol (Bld) NOT REPORTED Normal [facility] Comment on above: Performed By: #### L ACDS, TROPI, PRCAL, MYCM #### [facility] [employer] [address] [place] [address] RBC morphology finding Nom (Bld) NOT REPORTED Normal [facility] Comment on above: Performed By: #### L ACDS, TROPI, PRCAL, MYCM #### [facility] [employer] [address] [place] [address] WBC Morphology NOT REPORTED Normal [facility] Comment on above: Performed By: #### L ACDS, TROPI, PRCAL, MYCM #### [address] [address] Comp Metabolic Pr/rfx MGon 1 10-19-2017 (cont.) Normal [facility] Comment on above: Result Comment: Aver age GFR for 30-39 years old: 107 mL/min/1.73sq m Chronic Kidney Disease: <60 mL/min/1.73sq m Kidney failure: <15 mL/min/1.73sq m eGFR calculated using average adult body mass. Additional eGFR calculator available at: http://www.jiffstore.com/multiple_crcl_2012.htm Performed By: #### L ACDS, TROPI, PRCAL, MYCM #### [facility] [employer] [address] [place] [address] Albumin mass conc 2.7 g/dL Low 3.5-5.[address] [facility] Comment on above: Performed By: #### L ACDS, TROPI, PRCAL, MYCM #### [facility] [employer] [address] [place] [address] Albumin/Globulin mass ratio 0.8 {ratio} Low 1.0-2.5 [facility] Comment on above: Performed By: #### L ACDS, TROPI, PRCAL, MYCM #### [facility] [employer] [address] [place] [address] Alkaline Phos 78 U/L Normal 35-104 [facility] Comment on above: Performed By: #### L ACDS, TROPI, PRCAL, MYCM #### [facility] [employer] [address] [place] [address] ALT enzyme act/vol 16 U/L Normal 5-33 [facility] Comment on above: Performed By: #### L ACDS, TROPI, PRCAL, MYCM #### [facility] [employer] [address] [place] [address] Anion gap molar conc 10 mmol/L Normal 9-17 [facility] Comment on above: Performed By: #### L ACDS, TROPI, PRCAL, MYCM #### [facility] [employer] [address] [place] [address]51 AST enzyme act/vol 16 U/L Normal <32 [facility] Comment on above: Performed By: #### L ACDS, TROPI, PRCAL, MYCM #### [facility] [employer] [address] [place] [address] Bilirubin Ql (U) 0.21 mg/dL Low 0.3-1.2 [facility] Comment on above: Performed By: #### L ACDS, TROPI, PRCAL, MYCM #### [facility] [employer] [address] [place] [address] Calcium mass conc 8.5 mg/dL Low 8.6-10.[address] [facility] Comment on above: Performed By: #### L ACDS, TROPI, PRCAL, MYCM #### [facility] [employer] [address] [place] [address] Chloride molar conc 103 mmol/L Normal 98-107 [facility] Comment on above: Performed By: #### L ACDS, TROPI, PRCAL, MYCM #### [address] [address] CO2 molar conc 24 mmol/L Normal 20-31 [facility] Comment on above: Performed By: #### L ACDS, TROPI, PRCAL, MYCM #### [facility] [employer] [address] [place] [address] Creatinine mass conc 0.88 mg/dL Normal 0.50-0.90 [facility] Comment on above: Performed By: #### L ACDS, TROPI, PRCAL, MYCM #### [facility] [employer] [address] [place] [address]98 GFR, Amer >60 Normal >60 [facility] Comment on above: Performed By: #### L ACDS, TROPI, PRCAL, MYCM #### [facility] [employer] [address] [place] [address]245 GFR,non Amer >60 Normal >60 [facility] Comment on above: Performed By: #### L ACDS, TROPI, PRCAL, MYCM #### [facility] [employer] [address] [place] [address]8887 Glucose mass conc 104 mg/dL High 70-[address] [facility] Comment on above: Performed By: #### L ACDS, TROPI, PRCAL, MYCM #### [facility] [employer] [address] [place] [address]28 Potassium molar conc 4.0 mmol/L Normal 3.7-5.3 [facility] Comment on above: Performed By: #### L ACDS, TROPI, PRCAL, MYCM #### [facility] [employer] [address] [place] [address] Protein mass conc 6.3 g/dL Low 6.4-8.[address] [facility] Comment on above: Performed By: #### L ACDS, TROPI, PRCAL, MYCM #### [employer] [facility] [place] [address] Sodium molar conc 137 mmol/L Normal 135-[address] [facility] Comment on above: Performed By: #### L ACDS, TROPI, PRCAL, MYCM #### [employer] [address] [place] [address]46 Urea nitrogen mass conc 16 mg/dL Normal -20 [facility] Comment on above: Performed By: #### L ACDS, TROPI, PRCAL, MYCM #### [facility] [employer] [address] [place] [address]55 BUN/CRE Ratio NOT REPORTED Normal - [facility] Comment on above: Performed By: #### L ACDS, TROPI, PRCAL, MYCM #### [facility] [address] [place] [address]12 Staging: NOT REPORTED Normal [facility] Comment on above: Performed By: #### L ACDS, TROPI, PRCAL, MYCM #### [facility] [facility] [employer] [address] [place] [address]954 Cult, Bloodon 08-19-2018 Cult, Blood Specimen Description .BLOOD Special Requests L HAND 6ML Culture POSITIVE BLOOD CULTURE, RN NOTIFIED: ELMER Lino ON 08/17/18 AT 1107 DIRECT GRAM STAIN FROM BOTTLE: GRAM POSITIVE COCCI IN CLUSTERS ID by PNAFISH: STAPHYLOCOCCUS AUREUS METHICILLIN RESISTANT STAPHYLOCOCCUS AUREUS Report Status FINAL 08/18/2018 SUSCEPTIBILITY Organism METHICILLIN RESISTANT STAPHYLOCOCCUS AUREUS Method OSNIA Penicillin >=0.5 RESISTANT Cefoxitin Screen NOT REPORTED Ciprofloxacin NOT REPORTED Clindamycin <=0.25 SUSCEPTIBLE Erythromycin >=8 RESISTANT Gentamicin <=0.5 SUSCEPTIBLE Induced Clind Resist NEGATIVE Levofloxacin 4 RESISTANT Linezolid NOT REPORTED Moxifloxacin NOT REPORTED Nitrofurantoin NOT REPORTED Oxacillin >=4 RESISTANT Synercid NOT REPORTED Rifampin NOT REPORTED Tetracycline <=1 SUSCEPTIBLE Tigecycline NOT REPORTED Trimethoprim/Sulfa <=10 SUSCEPTIBLE Vancomycin 1 SUSCEPTIBLE Normal [facility] Comment on above: Performed By: #### L ACDS, TROPI, PRCAL, MYCM #### [employer] [address] [place] [address] MRI CERVICAL SPINE W WO CONT JAVONTon [...] Bo Rodrigues MD 08/19/18 Final result Normal [facility] MRI LUMBAR SPINE W WO CONTRA STon [...] Bo Rodrigues MD 08/19/18 Final result Normal [facility] MRI THORACIC SPINE W WO CONT Arianna [...] Bo Rodrigues MD 08/19/18 Final result Normal [facility] Magnesiumon 08-19-2018 Magnesium mass conc 2.3 mg/dL Normal 1.6-2.6 [facility] Comment on above: Performed By: #### L ACDS, TROPI, PRCAL, MYCM #### [employer] [facility] [place] [address] Procalcitoninon 08-19-2018 Protein mass conc 0.57 ng/mL High <0.[address] [facility] Comment on above: Result Comment: [...] entered into the Change in Procalcitonin Calculator ([email or web address]-oqc-[email or web address]) to determine the patient's Mortality Risk Prognosis Performed By: #### L ACDS, TROPI, PRCAL, MYCM #### [employer] [address] [place] [address] CBC with Diffon 08-18-2018 Abs. Basophil <0.03 Normal 0.00-0.20 [facility] Comment on above: Performed By: #### L ACDS, TROPI, PRCAL, MYCM #### [employer] [address] [place], [place] [id number] Abs.Imm.Granulocyte 0.28 k/uL Normal 0.00-0.30 [facility] Comment on above: Performed By: #### L ACDS, TROPI, PRCAL, MYCM #### [address] [address] Abs.Neutrophil (Seg) 3.23 k/uL Normal 1.50-8.10 [facility] Comment on above: Performed By: #### L ACDS, TROPI, PRCAL, MYCM #### [facility] [employer] [address] [place] [address] Basophils/100 WBC (Bld) 0 % Normal 0-2 [facility] Comment on above: Performed By: #### L ACDS, TROPI, PRCAL, MYCM #### [facility] [employer] [address] [place] [address] Eosinophils #/vol (Bld) 0.15 10*3/uL Normal 0.00-0.44 [facility] Comment on above: Performed By: #### L ACDS, TROPI, PRCAL, MYCM #### [facility] [employer] [address] [place] [address] 60977 Eosinophils/100 WBC (Bld) 3 % Normal 1-4 [facility] Comment on above: Performed By: #### L ACDS, TROPI, PRCAL, MYCM #### [facility] [employer] [address] [place] [address] Erythrocyte distribution width Ratio (RBC) 14.7 % High 11.8-14.4 [facility] Comment on above: Performed By: #### L ACDS, TROPI, PRCAL, MYCM #### [facility] [employer] [address] [place] [address] 53338 Hematocrit Volume Fraction (Bld) 32.7 % Low 36.3-47.1 [facility] Comment on above: Performed By: #### L ACDS, TROPI, PRCAL, MYCM #### [address] [address] Hemoglobin mass conc (Bld) 10.1 g/dL Low 11.9-15.1 [facility] Comment on above: Performed By: #### L ACDS, TROPI, PRCAL, MYCM #### [address] [address] Immature granulocytes #/vol (Bld) 5 % High 0 [facility] Comment on above: Performed By: #### L ACDS, TROPI, PRCAL, MYCM #### [address] [address] Lymphocytes #/vol (Bld) 1.58 10*3/uL Normal 1.10-3.70 [facility] Comment on above: Performed By: #### L ACDS, TROPI, PRCAL, MYCM #### [address] [address] Lymphocytes/100 WBC (Bld) 28 % Normal 24-43 [facility] Comment on above: Performed By: #### L ACDS, TROPI, PRCAL, MYCM #### [address] [address] MCH Entitic mass (RBC) 28.2 pg Normal 25.2-33.5 [facility] Comment on above: Performed By: #### L ACDS, TROPI, PRCAL, MYCM #### [address] [address] MCHC mass conc (RBC) 30.9 g/dL Normal 28.4-34.8 [facility] Comment on above: Performed By: #### L ACDS, TROPI, PRCAL, MYCM #### [address] [address] MCV Entitic volume (RBC) 91.3 fL Normal 82.6-102.9 [facility] Comment on above: Performed By: #### L ACDS, TROPI, PRCAL, MYCM #### [address] [address] Monocytes #/vol (Bld) 0.47 10*3/uL Normal 0.10-1.20 [facility] Comment on above: Performed By: #### L ACDS, TROPI, PRCAL, MYCM #### [address] [address] Monocytes/100 WBC (Bld) 8 % Normal 3-12 [facility] Comment on above: Performed By: #### L ACDS, TROPI, PRCAL, MYCM #### [address] [address] Neutrophil (Seg) 56 % Normal 36-65 [facility] Comment on above: Performed By: #### L ACDS, TROPI, PRCAL, MYCM #### [address] [address] NRBC Automated 0.0 per 100 WBC Normal 0.0 [facility] Comment on above: Performed By: #### L ACDS, TROPI, PRCAL, MYCM #### [address] [address] Platelet mean volume Entitic volume (Bld) 11.4 fL Normal 8.1-13.5 [facility] Comment on above: Performed By: #### L ACDS, TROPI, PRCAL, MYCM #### [address] [address] Platelets #/vol (Bld) 153 10*3/uL Normal 138-453 [facility] Comment on above: Performed By: #### L ACDS, TROPI, PRCAL, MYCM #### [address] [place] [address] RBC #/vol (Bld) 3.58 10*6/uL Low 3.95-5.[address] [facility] Comment on above: Performed By: #### L ACDS, TROPI, PRCAL, MYCM #### [facility] [employer] [address] [place] [address]261 RBC morphology finding Nom (Bld) ANISOCYTOSIS PRESENT Normal [facility] Comment on above: Performed By: #### L ACDS, TROPI, PRCAL, MYCM #### [facility] [employer] [address] [place] [address] WBC #/vol (Bld) 5.7 10*3/uL Normal 3.5-11.3 [facility] Comment on above: Performed By: #### L ACDS, TROPI, PRCAL, MYCM #### [facility] [employer] [address] [place] [address] Auto Diff Performed NOT REPORTED Normal [facility] Comment on above: Performed By: #### L ACDS, TROPI, PRCAL, MYCM #### [address] [address] Platelets #/vol (Bld) NOT REPORTED Normal [facility] Comment on above: Performed By: #### L ACDS, TROPI, PRCAL, MYCM #### [facility] [employer] [address] [place] [address] WBC Morphology NOT REPORTED Normal [facility] Comment on above: Performed By: #### L ACDS, TROPI, PRCAL, MYCM #### [facility] [employer] [address] [place] [address] 73799 Comp Metabolic Pr/rfx MGon 1 10-18-2017 (cont.) Normal [facility] Comment on above: Result Comment: Aver age GFR for 30-39 years old: 107 mL/min/1.73sq m Chronic Kidney Disease: <60 mL/min/1.73sq m Kidney failure: <15 mL/min/1.73sq m eGFR calculated using average adult body mass. Additional eGFR calculator available at: http://www.jiffstore.Chictini/multiple_crcl_2012.htm Performed By: #### L ACDS, TROPI, PRCAL, MYCM #### [facility] [address] [place] [address] Albumin mass conc 2.7 g/dL Low 3.5-5.[address] [facility] Comment on above: Performed By: #### L ACDS, TROPI, PRCAL, MYCM #### [facility] [employer] [address] [place] [address] Albumin/Globulin mass ratio 0.8 {ratio} Low 1.0-2.5 [facility] Comment on above: Performed By: #### L ACDS, TROPI, PRCAL, MYCM #### [facility] [employer] [address] [place] [address] Alkaline Phos 82 U/L Normal 35-104 [facility] Comment on above: Performed By: #### L ACDS, TROPI, PRCAL, MYCM #### [facility] [employer] [address] [place] [address]124 ALT enzyme act/vol 19 U/L Normal 5-33 [facility] Comment on above: Performed By: #### L ACDS, TROPI, PRCAL, MYCM #### [facility] [employer] [address] [place] [address] Anion gap molar conc 8 mmol/L Low 9-17 [facility] Comment on above: Performed By: #### L ACDS, TROPI, PRCAL, MYCM #### [facility] [employer] [address] [place] [address] 59862 AST enzyme act/vol 17 U/L Normal <32 [facility] Comment on above: Performed By: #### L ACDS, TROPI, PRCAL, MYCM #### [facility] [employer] [address] [place] [address] Bilirubin Ql (U) 0.24 mg/dL Low 0.3-1.2 [facility] Comment on above: Performed By: #### L ACDS, TROPI, PRCAL, MYCM #### [facility] [employer] [address] [place] [address] Calcium mass conc 8.2 mg/dL Low 8.6-10.[address] [facility] Comment on above: Performed By: #### L ACDS, TROPI, PRCAL, MYCM #### [facility] [employer] [address] [place] [address]658 Chloride molar conc 103 mmol/L Normal 98-107 [facility] Comment on above: Performed By: #### L ACDS, TROPI, PRCAL, MYCM #### [facility] [employer] [address] [place] [address] CO2 molar conc 25 mmol/L Normal 20-31 [facility] Comment on above: Performed By: #### L ACDS, TROPI, PRCAL, MYCM #### [facility] [employer] [address] [place] [address] Creatinine mass conc 0.94 mg/dL High 0.50-0.90 [facility] Comment on above: Performed By: #### L ACDS, TROPI, PRCAL, MYCM #### [facility] [employer] [address] [place] [address] 36593 GFR, Amer >60 Normal >60 [facility] Comment on above: Performed By: #### L ACDS, TROPI, PRCAL, MYCM #### [facility] [employer] [address] [place] [address] 47713 GFR,non Amer >60 Normal >60 [facility] Comment on above: Performed By: #### L ACDS, TROPI, PRCAL, MYCM #### [facility] [employer] [address] [place] [address] 11584 Glucose mass conc 107 mg/dL High 70-[address] [facility] Comment on above: Performed By: #### L ACDS, TROPI, PRCAL, MYCM #### [facility] [employer] [address] [place] [address] Potassium molar conc 4.1 mmol/L Normal 3.7-5.3 [facility] Comment on above: Performed By: #### L ACDS, TROPI, PRCAL, MYCM #### [facility] [employer] [address] [place] [address] Protein mass conc 6.2 g/dL Low 6.4-8.[address] [facility] Comment on above: Performed By: #### L ACDS, TROPI, PRCAL, MYCM #### [facility] [employer] [address] [place] [address] Sodium molar conc 136 mmol/L Normal 135-[address] [facility] Comment on above: Performed By: #### L ACDS, TROPI, PRCAL, MYCM #### [facility] [employer] [address] [place] [address]210 Urea nitrogen mass conc 14 mg/dL Normal 6-20 [facility] Comment on above: Performed By: #### L ACDS, TROPI, PRCAL, MYCM #### [facility] [address] [place] [address]808 BUN/CRE Ratio NOT REPORTED Normal 9-20 [facility] Comment on above: Performed By: #### L ACDS, TROPI, PRCAL, MYCM #### [employer] [address] [place] [address] Staging: NOT REPORTED Normal [facility] Comment on above: Performed By: #### L ACDS, TROPI, PRCAL, MYCM #### [employer] [address] [place] [address] Magnesiumon 08-18-2018 Magnesium mass conc 2.3 mg/dL Normal 1.6-2.6 [facility] Comment on above: Performed By: #### L ACDS, TROPI, PRCAL, MYCM #### [employer] [address] [place] [address]83 Vancomycin Troughon 08-18-20 18 Vancomycin Trough 14.7 ug/mL Normal 10.0-20.[address] [facility] Comment on above: Result Comment: High er trough serum vancomycin concentrations of 15-20 ug/mL are recommended for complicated infections such as bacteremia, endocarditis, osteomyelitis, meningitis, and hospital acquired pneumonia. Performed By: #### L ACDS, TROPI, PRCAL, MYCM #### [employer] [address] [place] [address] Date last dose, NOT REPORTED Normal [facility] Comment on above: Performed By: #### L ACDS, TROPI, PRCAL, MYCM #### [employer] [address] [place] [address]67 Dose amount, NOT REPORTED Normal [facility] Comment on above: Performed By: #### L ACDS, TROPI, PRCAL, MYCM #### [employer] [address] [place] [address] 10056 Time last dose, NOT REPORTED Normal [facility] Comment on above: Performed By: #### L ACDS, TROPI, PRCAL, MYCM #### [employer] [address] [place] [address] C-Reactive Proteinon 018 CRP mass conc 188.1 mg/L High 0.0-5.0 [facility] Comment on above: Performed By: #### L ACDS, TROPI, PRCAL, MYCM #### [address] [address] CBC with Diffon 08-17-2018 Abs. Basophil 0.00 k/uL Normal 0.0-0.2 [facility] Comment on above: Performed By: #### L ACDS, TROPI, PRCAL, MYCM #### [address] [address] Abs.Imm.Granulocyte 0.13 k/uL Normal 0.00-0.30 [facility] Comment on above: Performed By: #### L ACDS, TROPI, PRCAL, MYCM #### [address] [address] Abs.Neutrophil (Seg) 4.35 k/uL Normal 1.8-7.7 [facility] Comment on above: Performed By: #### L ACDS, TROPI, PRCAL, MYCM #### [address] [address] Basophils/100 WBC (Bld) 0 % Normal 0-2 [facility] Comment on above: Performed By: #### L ACDS, TROPI, PRCAL, MYCM #### [address] [address] Eosinophils #/vol (Bld) 0.06 10*3/uL Normal 0.0-0.4 [facility] Comment on above: Performed By: #### L ACDS, TROPI, PRCAL, MYCM #### [address] [address] Eosinophils/100 WBC (Bld) 1 % Normal 1-4 [facility] Comment on above: Performed By: #### L ACDS, TROPI, PRCAL, MYCM #### [address] [address] Immature granulocytes #/vol (Bld) 2 % High 0 [facility] Comment on above: Performed By: #### L ACDS, TROPI, PRCAL, MYCM #### [address] [address] Lymphocytes #/vol (Bld) 1.32 10*3/uL Normal 1.0-4.8 [facility] Comment on above: Performed By: #### L ACDS, TROPI, PRCAL, MYCM #### [facility] [employer] [address] [place] [address] Lymphocytes/100 WBC (Bld) 21 % Low 24-44 [facility] Comment on above: Performed By: #### L ACDS, TROPI, PRCAL, MYCM #### [address] [address] Monocytes #/vol (Bld) 0.44 10*3/uL Normal 0.1-0.8 [facility] Comment on above: Performed By: #### L ACDS, TROPI, PRCAL, MYCM #### [address] [address] Monocytes/100 WBC (Bld) 7 % Normal 1-7 [facility] Comment on above: Performed By: #### L ACDS, TROPI, PRCAL, MYCM #### [address] [address] Morphology Interp Rehan (Bld) ANISOCYTOSIS PRESENT Normal [facility] Comment on above: Result Comment: INCR EASED BANDS PRESENT 1+ TEARDROPS Performed By: #### L ACDS, TROPI, PRCAL, MYCM #### [facility] [employer] [address] [place] [address]65 Neutrophil (Seg) 69 % High 36-66 [facility] Comment on above: Performed By: #### L ACDS, TROPI, PRCAL, MYCM #### [facility] [address] [place] [address] Erythrocyte distribution width Ratio (RBC) 14.8 % High 11.8-14.4 [facility] Comment on above: Performed By: #### L ACDS, TROPI, PRCAL, MYCM #### [address] [address] Hematocrit Volume Fraction (Bld) 33.3 % Low 36.3-47.1 [facility] Comment on above: Performed By: #### L ACDS, TROPI, PRCAL, MYCM #### [facility] [employer] [address] [place] [address] Hemoglobin mass conc (Bld) 10.2 g/dL Low 11.9-15.1 [facility] Comment on above: Performed By: #### L ACDS, TROPI, PRCAL, MYCM #### [address] [address] MCH Entitic mass (RBC) 28.3 pg Normal 25.2-33.5 [facility] Comment on above: Performed By: #### L ACDS, TROPI, PRCAL, MYCM #### [facility] [employer] [address] [place] [address]72 MCHC mass conc (RBC) 30.6 g/dL Normal 28.4-34.8 [facility] Comment on above: Performed By: #### L ACDS, TROPI, PRCAL, MYCM #### [facility] [employer] [address] [place] [address] MCV Entitic volume (RBC) 92.2 fL Normal 82.6-102.9 [facility] Comment on above: Performed By: #### L ACDS, TROPI, PRCAL, MYCM #### [facility] [employer] [address] [place] [address] NRBC Automated 0.0 per 100 WBC Normal 0.0 [facility] Comment on above: Performed By: #### L ACDS, TROPI, PRCAL, MYCM #### [address] [address] Platelet mean volume Entitic volume (Bld) 11.5 fL Normal 8.1-13.5 [facility] Comment on above: Performed By: #### L ACDS, TROPI, PRCAL, MYCM #### [address] [address] Platelets #/vol (Bld) 149 10*3/uL Normal 138-453 [facility] Comment on above: Performed By: #### L ACDS, TROPI, PRCAL, MYCM #### [address] [address] RBC #/vol (Bld) 3.61 10*6/uL Low 3.95-5.[address] [facility] Comment on above: Performed By: #### L ACDS, TROPI, PRCAL, MYCM #### [address] [address] WBC #/vol (Bld) 6.3 10*3/uL Normal 3.5-11.3 [facility] Comment on above: Performed By: #### L ACDS, TROPI, PRCAL, MYCM #### [address] [address] Auto Diff Performed NOT REPORTED Normal [facility] Comment on above: Performed By: #### L ACDS, TROPI, PRCAL, MYCM #### [address] [address] Platelets #/vol (Bld) NOT REPORTED Normal [facility] Comment on above: Performed By: #### L ACDS, TROPI, PRCAL, MYCM #### [address] [place] [address] RBC morphology finding Nom (Bld) NOT REPORTED Normal [facility] Comment on above: Performed By: #### L ACDS, TROPI, PRCAL, MYCM #### [facility] [place] [address] WBC Morphology NOT REPORTED Normal [facility] Comment on above: Performed By: #### L ACDS, TROPI, PRCAL, MYCM #### [facility] [address] [place] [address] Comp Metabolic Pr/rfx MGon 1 10-17-2017 (cont.) Normal [facility] Comment on above: Result Comment: Aver age GFR for 30-39 years old: 107 mL/min/1.73sq m Chronic Kidney Disease: <60 mL/min/1.73sq m Kidney failure: <15 mL/min/1.73sq m eGFR calculated using average adult body mass. Additional eGFR calculator available at: http://www.jiffstore.Chictini/multiple_crcl_2012.htm Performed By: #### L ACDS, TROPI, PRCAL, MYCM #### [facility] [employer] [address] [place] [address]50 Albumin mass conc 2.4 g/dL Low 3.5-5.[address] [facility] Comment on above: Performed By: #### L ACDS, TROPI, PRCAL, MYCM #### [facility] [address] [place] [address] 11534 Albumin/Globulin mass ratio 0.7 {ratio} Low 1.0-2.5 [facility] Comment on above: Performed By: #### L ACDS, TROPI, PRCAL, MYCM #### [facility] [address] [place] [address]246 Alkaline Phos 76 U/L Normal 35-104 [facility] Comment on above: Performed By: #### L ACDS, TROPI, PRCAL, MYCM #### [facility] [employer] [address] [place] [address] 91649 ALT enzyme act/vol 25 U/L Normal 5-33 [facility] Comment on above: Performed By: #### L ACDS, TROPI, PRCAL, MYCM #### [facility] [employer] [address] [place] [address] 24874 Anion gap molar conc 8 mmol/L Low 9-17 [facility] Comment on above: Performed By: #### L ACDS, TROPI, PRCAL, MYCM #### [facility] [employer] [address] [place] [address] 06487 AST enzyme act/vol 26 U/L Normal <32 [facility] Comment on above: Performed By: #### L ACDS, TROPI, PRCAL, MYCM #### [facility] [employer] [address] [place] [address]24 Bilirubin Ql (U) 0.34 mg/dL Normal 0.3-1.2 [facility] Comment on above: Performed By: #### L ACDS, TROPI, PRCAL, MYCM #### [facility] [employer] [address] [place] [address]881 Calcium mass conc 7.8 mg/dL Low 8.6-10.[address] [facility] Comment on above: Performed By: #### L ACDS, TROPI, PRCAL, MYCM #### [facility] [employer] [address] [place] [address] 95650 Chloride molar conc 99 mmol/L Normal 98-107 [facility] Comment on above: Performed By: #### L ACDS, TROPI, PRCAL, MYCM #### [facility] [address] [place] [address] 48174 CO2 molar conc 23 mmol/L Normal 20-31 [facility] Comment on above: Performed By: #### L ACDS, TROPI, PRCAL, MYCM #### [facility] [employer] [address] [place] [address] 14550 Creatinine mass conc 1.04 mg/dL High 0.50-0.90 [facility] Comment on above: Performed By: #### L ACDS, TROPI, PRCAL, MYCM #### [facility] [employer] [address] [place] [address] 16847 GFR, Amer >60 Normal >60 [facility] Comment on above: Performed By: #### L ACDS, TROPI, PRCAL, MYCM #### [facility] [employer] [address] [place] [address] 74340 GFR,non Amer 59 mL/min Low >60 [facility] Comment on above: Performed By: #### L ACDS, TROPI, PRCAL, MYCM #### [facility] [employer] [address] [place] [address] 64783 Glucose mass conc 109 mg/dL High 70-[address] [facility] Comment on above: Performed By: #### L ACDS, TROPI, PRCAL, MYCM #### [facility] [employer] [address] [place] [address] 26676 Potassium molar conc 3.8 mmol/L Normal 3.7-5.3 [facility] Comment on above: Performed By: #### L ACDS, TROPI, PRCAL, MYCM #### [facility] [employer] [address] [place] [address] 89296 Protein mass conc 5.8 g/dL Low 6.4-8.[address] [facility] Comment on above: Performed By: #### L ACDS, TROPI, PRCAL, MYCM #### [facility] [employer] [address] [place] [address] 36652 Sodium molar conc 130 mmol/L Low 135-[address] [facility] Comment on above: Performed By: #### L ACDS, TROPI, PRCAL, MYCM #### [facility] [employer] [address] [place] [address] Urea nitrogen mass conc 15 mg/dL Normal -20 [facility] Comment on above: Performed By: #### L ACDS, TROPI, PRCAL, MYCM #### [facility] [address] [place] [address] 60871 BUN/CRE Ratio NOT REPORTED Normal - [facility] Comment on above: Performed By: #### L ACDS, TROPI, PRCAL, MYCM #### [facility] [employer] [address] [place] [address] 12260 Staging: NOT REPORTED Normal [facility] Comment on above: Performed By: #### L ACDS, TROPI, PRCAL, MYCM #### [facility] [address] [place] [address] 37266 Magnesiumon 08-17-2018 Magnesium mass conc 2.2 mg/dL Normal 1.6-2.6 [facility] Comment on above: Performed By: #### L ACDS, TROPI, PRCAL, MYCM #### [facility] [address] [place] [address] 86566 Procalcitoninon 08-17-2018 Protein mass conc 1.48 ng/mL High <0.[address] [facility] Comment on above: Result Comment: [...] entered into the Change in Procalcitonin Calculator ([email or web address]-fjd-rbcirppmur.com) to determine the patient's Mortality Risk Prognosis Performed By: #### L ACDS, TROPI, PRCAL, MYCM #### [address] [address] Sedimentation Rateon 018 Sedimentation Rate 97 mm High 0-20 [facility] Comment on above: Performed By: #### L ACDS, TROPI, PRCAL, MYCM #### [address] [address] CBC with Diffon 08-16-2018 Abs. Basophil 0.00 k/uL Normal 0.00-0.20 [facility] Comment on above: Performed By: #### L ACDS, TROPI, PRCAL, MYCM #### [address] [address] Abs.Imm.Granulocyte 0.11 k/uL Normal 0.00-0.30 [facility] Comment on above: Performed By: #### L ACDS, TROPI, PRCAL, MYCM #### [address] [address] Abs.Neutrophil (Seg) 4.60 k/uL Normal 1.50-8.10 [facility] Comment on above: Performed By: #### L ACDS, TROPI, PRCAL, MYCM #### [facility] [employer] [address] [place] [address] 72535 Basophils/100 WBC (Bld) 0 % Normal 0-2 [facility] Comment on above: Performed By: #### L ACDS, TROPI, PRCAL, MYCM #### [address] [address] Eosinophils #/vol (Bld) 0.00 10*3/uL Normal 0.00-0.44 [facility] Comment on above: Performed By: #### L ACDS, TROPI, PRCAL, MYCM #### [address] [address] Eosinophils/100 WBC (Bld) 0 % Low 1-4 [facility] Comment on above: Performed By: #### L ACDS, TROPI, PRCAL, MYCM #### [address] [address] Immature granulocytes #/vol (Bld) 2 % High 0 [facility] Comment on above: Performed By: #### L ACDS, TROPI, PRCAL, MYCM #### [address] [address] Lymphocytes #/vol (Bld) 0.67 10*3/uL Low 1.10-3.70 [facility] Comment on above: Performed By: #### L ACDS, TROPI, PRCAL, MYCM #### [address] [address] Lymphocytes/100 WBC (Bld) 12 % Low 24-43 [facility] Comment on above: Performed By: #### L ACDS, TROPI, PRCAL, MYCM #### [address] [address] Monocytes #/vol (Bld) 0.22 10*3/uL Normal 0.10-1.20 [facility] Comment on above: Performed By: #### L ACDS, TROPI, PRCAL, MYCM #### [address] [address] Monocytes/100 WBC (Bld) 4 % Normal 3-12 [facility] Comment on above: Performed By: #### L ACDS, TROPI, PRCAL, MYCM #### [address] [address] Morphology Interp Rehan (Bld) ANISOCYTOSIS PRESENT Normal [facility] Comment on above: Result Comment: INCR EASED BANDS PRESENT 1+ TEARDROPS Performed By: #### L ACDS, TROPI, PRCAL, MYCM #### [address] [address] Neutrophil (Seg) 82 % High 36-65 [facility] Comment on above: Performed By: #### L ACDS, TROPI, PRCAL, MYCM #### [address] [address] Erythrocyte distribution width Ratio (RBC) 15.1 % High 11.8-14.4 [facility] Comment on above: Performed By: #### L ACDS, TROPI, PRCAL, MYCM #### [address] [address] Hematocrit Volume Fraction (Bld) 34.1 % Low 36.3-47.1 [facility] Comment on above: Performed By: #### L ACDS, TROPI, PRCAL, MYCM #### [address] [address] Hemoglobin mass conc (Bld) 10.0 g/dL Low 11.9-15.1 [facility] Comment on above: Performed By: #### L ACDS, TROPI, PRCAL, MYCM #### [address] [address] MCH Entitic mass (RBC) 28.7 pg Normal 25.2-33.5 [facility] Comment on above: Performed By: #### L ACDS, TROPI, PRCAL, MYCM #### [address] [address] MCHC mass conc (RBC) 29.3 g/dL Normal 28.4-34.8 [facility] Comment on above: Performed By: #### L ACDS, TROPI, PRCAL, MYCM #### [address] [address] MCV Entitic volume (RBC) 98.0 fL Normal 82.6-102.9 [facility] Comment on above: Performed By: #### L ACDS, TROPI, PRCAL, MYCM #### [address] [address] NRBC Automated 0.0 per 100 WBC Normal 0.0 [facility] Comment on above: Performed By: #### L ACDS, TROPI, PRCAL, MYCM #### [address] [address] Platelet mean volume Entitic volume (Bld) 11.1 fL Normal 8.1-13.5 [facility] Comment on above: Performed By: #### L ACDS, TROPI, PRCAL, MYCM #### [address] [address] Platelets #/vol (Bld) 119 10*3/uL Low 138-453 [facility] Comment on above: Performed By: #### L ACDS, TROPI, PRCAL, MYCM #### [address] [address] RBC #/vol (Bld) 3.48 10*6/uL Low 3.95-5.[address] [facility] Comment on above: Performed By: #### L ACDS, TROPI, PRCAL, MYCM #### [address] [address] WBC #/vol (Bld) 5.6 10*3/uL Normal 3.5-11.3 [facility] Comment on above: Performed By: #### L ACDS, TROPI, PRCAL, MYCM #### [facility] [address] [place] [address] Auto Diff Performed NOT REPORTED Normal [facility] Comment on above: Performed By: #### L ACDS, TROPI, PRCAL, MYCM #### [facility] [address] [place] [address] 12671 Platelets #/vol (Bld) NOT REPORTED Normal [facility] Comment on above: Performed By: #### L ACDS, TROPI, PRCAL, MYCM #### [facility] [employer] [address] [place] [address] 31665 RBC morphology finding Nom (Bld) NOT REPORTED Normal [facility] Comment on above: Performed By: #### L ACDS, TROPI, PRCAL, MYCM #### [facility] [address] [place] [address] 32129 WBC Morphology NOT REPORTED Normal [facility] Comment on above: Performed By: #### L ACDS, TROPI, PRCAL, MYCM #### [facility] [employer] [address] [place] [address] HEAD WO CONTRASTon 2017 CT HEAD [...] Erica Angeles MD 08/16/18 Final result Normal [facility] Calcium, Ionicon 08-16-2018 Calcium mass conc 0.99 mmol/L Low 1.13-1.33 [facility] Comment on above: Performed By: #### L ACDS, TROPI, PRCAL, MYCM #### [facility] [employer] [address] [place] [address] 86131 Comp Metabolic Pr/rfx MGon 1 10-16-2017 (cont.) Normal [facility] Comment on above: Result Comment: Aver age GFR for 30-39 years old: 107 mL/min/1.73sq m Chronic Kidney Disease: <60 mL/min/1.73sq m Kidney failure: <15 mL/min/1.73sq m eGFR calculated using average adult body mass. Additional eGFR calculator available at: http://www.jiffstore.Chictini/multiple_crcl_2012.htm Performed By: #### P T, CMPX, MG, CDP #### [facility] [address] [place] [address] 28643 Albumin mass conc 2.3 g/dL Low 3.5-5.[address] [facility] Comment on above: Performed By: #### P T, CMPX, MG, CDP #### [facility] [employer] [address] [place] [address] 35789 Albumin/Globulin mass ratio 0.7 {ratio} Low 1.0-2.5 [facility] Comment on above: Performed By: #### P T, CMPX, MG, CDP #### [employer] [address] [place] [address] 86536 Alkaline Phos 67 U/L Normal 35-104 [facility] Comment on above: Performed By: #### P T, CMPX, MG, CDP #### [facility] [address] [place] [address] 56347 ALT enzyme act/vol 33 U/L Normal 5-33 [facility] Comment on above: Performed By: #### P T, CMPX, MG, CDP #### [facility] [employer] [address] [place] [address] 49402 Anion gap molar conc 11 mmol/L Normal 9-17 [facility] Comment on above: Performed By: #### P T, CMPX, MG, CDP #### [facility] [employer] [address] [place] [address] 20873 AST enzyme act/vol 41 U/L High <32 [facility] Comment on above: Performed By: #### P T, CMPX, MG, CDP #### [facility] [employer] [address] [place] [address] 76292 Bilirubin Ql (U) 0.40 mg/dL Normal 0.3-1.2 [facility] Comment on above: Performed By: #### P T, CMPX, MG, CDP #### [facility] [employer] [address] [place] [address] 97187 Calcium mass conc 7.3 mg/dL Low 8.6-10.[address] [facility] Comment on above: Performed By: #### P T, CMPX, MG, CDP #### [facility] [employer] [address] [place] [address] 08616 Chloride molar conc 105 mmol/L Normal 98-107 [facility] Comment on above: Performed By: #### P T, CMPX, MG, CDP #### [facility] [employer] [address] [place] [address] 16229 CO2 molar conc 18 mmol/L Low 20-31 [facility] Comment on above: Performed By: #### P T, CMPX, MG, CDP #### [facility] [employer] [address] [place] [address] 92768 Creatinine mass conc 1.09 mg/dL High 0.50-0.90 [facility] Comment on above: Performed By: #### P T, CMPX, MG, CDP #### [facility] [employer] [address] [place] [address] 14643 GFR, Amer >60 Normal >60 [facility] Comment on above: Performed By: #### P T, CMPX, MG, CDP #### [facility] [employer] [address] [place] [address] 55374 GFR,non Amer 56 mL/min Low >60 [facility] Comment on above: Performed By: #### P T, CMPX, MG, CDP #### [facility] [employer] [address] [place] [address] 47671 Glucose mass conc 128 mg/dL High 70-[address] [facility] Comment on above: Performed By: #### P T, CMPX, MG, CDP #### [facility] [employer] [address] [place] [address] 52881 Potassium molar conc 3.6 mmol/L Low 3.7-5.3 [facility] Comment on above: Performed By: #### P T, CMPX, MG, CDP #### [facility] [employer] [address] [place] [address] 12335 Protein mass conc 5.5 g/dL Low 6.4-8.[address] [facility] Comment on above: Performed By: #### P T, CMPX, MG, CDP #### [facility] [employer] [address] [place] [address] 60384 Sodium molar conc 134 mmol/L Low 135-[address] [facility] Comment on above: Performed By: #### P T, CMPX, MG, CDP #### [facility] [employer] [address] [place] [address] 35412 Urea nitrogen mass conc 17 mg/dL Normal 6-20 [facility] Comment on above: Performed By: #### P T, CMPX, MG, CDP #### [facility] [employer] [address] [place] [address] 97668 BUN/CRE Ratio NOT REPORTED Normal 06-24 [facility] Comment on above: Performed By: #### P T, CMPX, MG, CDP #### [facility] [employer] [address] [place] [address] 52525 Staging: NOT REPORTED Normal [facility] Comment on above: Performed By: #### P T, CMPX, MG, CDP #### [facility] [employer] [address] [place] [address] 61521 Lactic Acid,Whole Blon 08-16 Lactic Acid,Whole Bl 1.2 mmol/L Normal 0.7-2.1 [facility] Comment on above: Performed By: #### L ACDS, TROPI, PRCAL, MYCM #### [facility] [employer] [address] [place] [address] 59570 Lactic Acid,Whole Bl 1.2 mmol/L Normal 0.7-2.1 [facility] Comment on above: Performed By: #### L ACWB #### [address] [address] Magnesiumon 08-16-2018 Magnesium mass conc 2.0 mg/dL Normal 1.6-2.6 [facility] Comment on above: Performed By: #### L ACDS, TROPI, PRCAL, MYCM #### [facility] [employer] [address] [place] [address] 46926 Mycoplasma Ab,IgMon 08-16-20 18 Mycoplasma Ab,IgM 0.22 Normal <0.[address] [facility] Comment on above: Result Comment: Reference Range: <=0.90 Negative 0.91-1.09 Equivocal >=1.10 Positive Performed By: #### L ACDS, TROPI, PRCAL, MYCM #### [facility] [employer] [address] [place] [address] [phone] PTon 08-16-2018 INR Coag RelTime (PPP) 1.0 {INR} Normal [facility] Comment on above: Result Comment: Therapeutic Range: Moderate Anticoagulant Intensity: INR = 2.0-3.0 High Anticoagulant Intensity: INR = 2.5-3.5 Performed By: #### P T, CMPX, MG, CDP #### [facility] [employer] [address] [place] [address] [phone] Prothrombin time (PT) Coag time (PPP) 11.0 s Normal 9.0-12.0 [facility] Comment on above: Performed By: #### P T, CMPX, MG, CDP #### [facility] [employer] [address] [place] [address] [phone] Troponinon 08-16-2018 Troponin I.cardiac mass conc Normal [facility] Comment on above: Result Comment: Refe rence [...] diagnosis. Performed By: #### T ROPI #### [address] [phone] Troponin I.cardiac mass conc ng/mL Normal <0.03 [facility] Comment on above: Result Comment: Trop onin T results cannot be compared to Troponin-I results. Performed By: #### T ROPI #### [address] [phone] XR CHEST (2 VW)on 08-16-2018 XR CHEST [...] Noe Mitchell MD 08/16/18 Final result Normal [facility] Lactate, Sepsison 08-15-2018 Lactic Acid,Sep Wbld 3.5 mmol/L High 0.5-1.9 [facility] Comment on above: Performed By: #### L ACDS, TROPI, PRCAL, MYCM #### [address] [phone] Lactic Acid, Sepsis NOT REPORTED Normal 0.5-1.9 [facility] Comment on above: Performed By: #### L ACDS, TROPI, PRCAL, MYCM #### [address] [phone] Legionella Ag, Uron 08-15-20 18 Legionella Ag, [...] this test. Report Status FINAL 08/15/2018 Normal [facility] Comment on above: Performed By: #### U LAG #### [address] [phone] Procalcitoninon 08-15-2018 Protein mass conc 3.39 ng/mL High <0.[address] [facility] Comment on above: Result Comment: [...] entered into the Change in Procalcitonin Calculator (www.ftshri-uat-uyqlfyvjcg.Chictini) to determine the patient's Mortality Risk Prognosis Performed By: #### L ACDS, TROPI, PRCAL, MYCM #### [employer] [address] [place] [address] [phone] Strep pneum Ag,CSF/Uron 08-05 Strep pneum Ag,CSF/Ur Specimen Descripti on .CLEAN CATCH URINE Special Requests NOT REPORTED Direct Exam NEGATIVE: Strep pneumoniae antigen not detected Report Status FINAL 08/15/2018 Normal [facility] Comment on above: Performed By: #### S PAG #### [employer] [address] [place] [address] 17999 Troponinon 08-15-2018 Troponin I.cardiac mass conc ng/mL Normal <0.03 [facility] Comment on above: Result Comment: Trop onin T results cannot be compared to Troponin-I results. Performed By: #### L ACDS, TROPI, PRCAL, MYCM #### [employer] [address] [place] [address] [phone] Troponin I.cardiac mass conc Normal [facility] Comment on above: Result Comment: Refe rence [...] #### L ACDS, TROPI, PRCAL, MYCM #### [employer] [address] [place] [address] Urinalysison 11-18-2017 Bilirubin, Urine Negative Invalid Interpretation Code NEG;NEGATIVE [facility] Blood, Urine Moderate Abnormal NEG;NEGATIVE [facility] Interpretation and review of laboratory results Abnormal Invalid Interpretation Code [facility] Nitrite, Urine Negative Invalid Interpretation Code NEG;NEGATIVE [facility] Protein, Urine Negative Invalid Interpretation Code NEG;NEGATIVE mg/dL [facility] RBCs, Urine 1 /HPF Invalid Interpretation Code 0 - 5 [facility] Squamous Epithelial < 1 Invalid Interpretation Code 0 - 40 /HPF [facility] Urine, bacteria in sediment Rare Invalid Interpretation Code NS;RARE /HPF [facility] Urine, character Hazy Invalid Interpretation Code [facility] Urine, color Yellow Invalid Interpretation Code [facility] Urine, glucose presence Negative Invalid Interpretation Code NEG;NEGATIVE mg/dL [facility] Urine, ketones presence Negative Invalid Interpretation Code NEG;NEGATIVE mg/dL [facility] Urine, leukocyte esterase presence Small Abnormal Negative [facility] Urine, pH 6.0 [pH] Invalid Interpretation Code 4.5 - 8.0 [facility] Urine, specific gravity 1.014 1 Invalid Interpretation Code 1.003 - 1.029 [facility] Urobilinogen, Urine < 2.0 Invalid Interpretation Code <2 mg/dL [facility] WBCs, Urine 6 /HPF High 0 - 5 [facility] CBC and Differentialon 11-17 Basophils 0.7 % Invalid Interpretation Code [facility] Basophils 0.1 K/mcL Invalid Interpretation Code 0 - 0.2 [facility] Eosinophils 0.2 K/mcL Invalid Interpretation Code 0 - 0.5 [facility] Erythrocytes (RBC) 3.97 M/mcL Invalid Interpretation Code 3.7 - 5.0 [facility] Hematocrit (HCT) 35.7 % Invalid Interpretation Code 34.4 - 44.8 % [facility] Hemoglobin (HGB) 12.2 g/dL Invalid Interpretation Code 11.6 - 15.4 g/dL [facility] Interpretation and review of laboratory results Abnormal Invalid Interpretation Code [facility] Lymphocytes 2.1 K/mcL Invalid Interpretation Code 1.0 - 3.7 [facility] MCH 30.6 pg Invalid Interpretation Code 27.9 - 33.9 pg [facility] MCHC 34.0 g/dL Invalid Interpretation Code 33.1 - 35.1 g/dL [facility] MCV 89.8 fL Invalid Interpretation Code 82.6 - 98.9 [facility] Monocytes 0.6 K/mcL Invalid Interpretation Code 0.1 - 0.6 [facility] Neutrophils 6.6 K/mcL Invalid Interpretation Code 1.2 - 6.9 [facility] Platelet mean volume (PMV) 8.6 fL Invalid Interpretation Code 7.0 - 10.6 [facility] Platelets 196 K/mcL Invalid Interpretation Code 162 - 402 [facility] RDW-CA 15.0 % High 10 - 14.4 % [facility] Segmented Neut 69.6 % Invalid Interpretation Code [facility] T8 suppressor/100 cells 1.8 10*3/uL Invalid Interpretation Code [facility] T8 suppressor/100 cells 21.8 10*3/uL Invalid Interpretation Code [facility] T8 suppressor/100 cells 6.1 10*3/uL Invalid Interpretation Code [facility] WBC (Leukocytes) 9.5 K/mcL Invalid Interpretation Code 3.4 - 10.6 [facility] Comprehensive Metabolic Pane ananda 11-17-2017 Alanine aminotransferase (ALT) 18 U/L Invalid Interpretation Code 14 - 65 U/L [facility] Albumin 3.1 g/dL Low 3.2 - 5.2 g/dL [facility] Alkaline phosphatase (ALP) 78 U/L Invalid Interpretation Code 40 - 140 U/L [facility] Aspartate aminotransferase (AST) 7 U/L Invalid Interpretation Code 0 - 45 U/L [facility] Calcium 8.6 mg/dL Invalid Interpretation Code 8.4 - 10.2 mg/dL [facility] Chloride 106 mmol/L Invalid Interpretation Code 98 - 108 mmol/L [facility] CO2 27 mmol/L Invalid Interpretation Code 21 - 32 mmol/L [facility] Creatinine 1.13 mg/dL High 0.4 - 1.1 mg/dL [facility] eGFR (black) mL/min/{1.73_m2} Invalid Interpretation Code ml/min/1.73sq .m [facility] eGFR (non-black) 54 mL/min/{1.73_m2} Low >60 [facility] Glucose 113 mg/dL High 70 - 99 mg/dL [facility] Interpretation and review of laboratory results Abnormal Invalid Interpretation Code [facility] Potassium 3.7 mmol/L Invalid Interpretation Code 3.5 - 5.1 mmol/L [facility] Protein 6.8 g/dL Invalid Interpretation Code 6 - 8 g/dL [facility] Sodium 140 mmol/L Invalid Interpretation Code 135 - 145 mmol/L [facility] Urea nitrogen 17 mg/dL Invalid Interpretation Code 8 - 25 mg/dL [facility] Urine, bilirubin presence 0.4 mg/dL Invalid Interpretation Code 0.3 - 1.2 mg/dL [facility] Lipaseon 11-17-2017 Lipase 167 U/L Invalid Interpretation Code 73 - 393 U/L [facility] Vital Signs Date Time Vital Sign Value Performing Clinician Yovani mclaughlin 05-24-2025 11:47-0400 Body height 157.5 cm Jennie [employer] Work Phone: [facility] 05-24-2025 11:47-0400 Body mass index (BMI) [Ratio] 38.41 kg/m2 Jennie [employer] Work Phone: [facility] 05-24-2025 11:47-0400 Body weight 95.25 kg Jennie [employer] Work Phone: [facility] 05-24-2025 11:47-0400 Diastolic blood pressure 80 mm[Hg] Jennie [employer] Work Phone: [facility] 05-24-2025 11:47-0400 Respiratory rate 18 /min [employer] Work Phone: [facility] 05-24-2025 11:47-0400 SaO2% (BldA) [Mass fraction] 98 % Jennie [employer] Work Phone: [facility] 05-24-2025 11:47-0400 Systolic blood pressure 120 mm[Hg] Jennie [employer]BLADE SHARPENER Work Phone: [facility] 04-20-2025 12:32-0400 Body height 157.5 cm Christopher Bohach DPM Work Phone: [facility] 04-20-2025 12:32-0400 Body mass index (BMI) [Ratio] 38.41 kg/m2 Christopher Bohach DPM Work Phone: [facility] 04-20-2025 12:32-0400 Body weight 95.25 kg Christopher Bohach DPM Work Phone: [facility] 04-20-2025 12:32-0400 Diastolic blood pressure 89 mm[Hg] Christopher Bohach DPM Work Phone: [facility] 04-20-2025 12:32-0400 Heart rate 101 /min Christopher Bohach DPM Work Phone: [facility] 04-20-2025 12:32-0400 Systolic blood pressure 128 mm[Hg] Christopher Bohach DPM Work Phone: [facility] 04-06-2025 16:21-0400 Body height 157.5 cm Christopher Bohach DPM Work Phone: [facility] 04-06-2025 16:21-0400 Body mass index (BMI) [Ratio] 38.41 kg/m2 Christopher Bohach DPM Work Phone: [facility] 04-06-2025 16:21-0400 Body weight 95.25 kg Christopher Bohach DPM Work Phone: [facility] 04-06-2025 16:21-0400 Diastolic blood pressure 80 mm[Hg] Christopher Bohach DPM Work Phone: [facility] 04-06-2025 16:21-0400 Heart rate 89 /min Christopher Bohach DPM Work Phone: [facility] 04-06-2025 16:21-0400 Systolic blood pressure 118 mm[Hg] Christopher Bohach DPM Work Phone: [facility]der 04-04-2025 23:15-0400 Diastolic blood pressure 70 mm[Hg] Severo Case MD Work Phone: [facility] 04-04-2025 23:15-0400 Heart rate 74 /min Severo Case MD Work Phone: [facility] 04-04-2025 23:15-0400 Respiratory rate 16 /min Severo Case MD Work Phone: [facility] 04-04-2025 23:15-0400 SaO2% (BldA) [Mass fraction] 97 % Severo Case MD Work Phone: [facility] 04-04-2025 23:15-0400 Systolic blood pressure 122 mm[Hg] Severo Case MD Work Phone: [facility] 04-04-2025 21:24-0400 Body height 152.4 cm Severo Case MD Work Phone: [facility] 04-04-2025 21:24-0400 Body mass index (BMI) [Ratio] 41.99 kg/m2 Severo Case MD Work Phone: [facility] 04-04-2025 21:24-0400 Body weight 97.52 kg Severo Case MD Work Phone: [facility] 04-04-2025 21:15-0400 Body temperature 99 [degF] Severo Case MD Work Phone: [facility] 03-14-2025 12:02-0400 Body height 157.5 cm Lynn Block MD Work Phone: [facility] 03-14-2025 12:02-0400 Body mass index (BMI) [Ratio] 38.41 kg/m2 Lynn Block MD Work Phone: [facility] 03-14-2025 12:02-0400 Body weight 95.25 kg Lynn Block MD Work Phone: [facility] 12-06-2024 13:00-0500 Body height 157.5 cm Lynn Block MD Work Phone: [facility] 12-06-2024 13:00-0500 Body mass index (BMI) [Ratio] 38.41 kg/m2 Lynn Block MD Work Phone: [facility] 12-06-2024 13:00-0500 Body weight 95.25 kg Lynn Block MD Work Phone: [facility] 11-14-2024 11:31-0500 Body height 157.5 cm Fozia Meng PRINCIPAL ENGINEER Work Phone: [facility] 11-14-2024 11:31-0500 Body mass index (BMI) [Ratio] 37.9 kg/m2 Fozia Meng PRINCIPAL ENGINEER Work Phone: [facility] 11-14-2024 11:31-0500 Body weight 93.98 kg Fozia Eamongel PRINCIPAL ENGINEER Work Phone: [facility] 11-14-2024 11:31-0500 Diastolic blood pressure 80 mm[Hg] Fozia Eamongel PRINCIPAL ENGINEER Work Phone: [facility] 11-14-2024 11:31-0500 Systolic blood pressure 134 mm[Hg] Fozia Meng PRINCIPAL ENGINEER Work Phone: [facility] 10-11-2024 09:42-0500 Body height 157.5 cm Sherman Adair MD Work Phone: [facility] 10-11-2024 09:42-0500 Body mass index (BMI) [Ratio] 38.23 kg/m2 Sherman Adair MD Work Phone: [facility] 10-11-2024 09:42-0500 Body temperature 98.29 [degF] Sherman Adair MD Work Phone: [facility] 10-11-2024 09:42-0500 Body weight 94.8 kg Sherman Adair MD Work Phone: [facility] 09-14-2024 11:30-0500 Body height 157.5 cm oFzia Meng PRINCIPAL ENGINEER Work Phone: [facility] 09-14-2024 11:30-0500 Body mass index (BMI) [Ratio] 39.91 kg/m2 Fozia Knutsongel PRINCIPAL ENGINEER Work Phone: [facility] 09-14-2024 11:30-0500 Body weight 98.97 kg Fozia Knutsongel PRINCIPAL ENGINEER Work Phone: [facility] 09-14-2024 11:30-0500 Diastolic blood pressure 70 mm[Hg] Fozia Knutsongel PRINCIPAL ENGINEER Work Phone: [facility] 09-14-2024 11:30-0500 Systolic blood pressure 140 mm[Hg] Fozia Knutsongel PRINCIPAL ENGINEER Work Phone: [facility] 06-10-2024 10:09-0400 Body height 157.5 cm Tiffanie Casas MD Work Phone: [facility] 06-10-2024 10:09-0400 Body mass index (BMI) [Ratio] 38.96 kg/m2 Tiffanie Casas MD Work Phone: [facility] 06-10-2024 10:09-0400 Body weight 96.62 kg Tiffanie Casas MD Work Phone: [facility] 06-10-2024 10:09-0400 Diastolic blood pressure 84 mm[Hg] Tiffanie Casas MD Work Phone: [facility] 06-10-2024 10:09-0400 Systolic blood pressure 132 mm[Hg] Tiffanie Casas MD Work Phone: [facility] 05-10-2024 14:20-0400 Body height 157.5 cm Cheryl Miles DO Work Phone: [facility] 05-10-2024 14:20-0400 Body mass index (BMI) [Ratio] 38.41 kg/m2 Cheryl Ginger DO Work Phone: [facility] 05-10-2024 14:20-0400 Body weight 95.25 kg Cheryl Ginger DO Work Phone: [facility] 05-10-2024 14:20-0400 Diastolic blood pressure 74 mm[Hg] Cheryl Ginger DO Work Phone: [facility] 05-10-2024 14:20-0400 Heart rate 83 /min Cheryl Ginger DO Work Phone: [facility] 05-10-2024 14:20-0400 SaO2% (BldA) [Mass fraction] 97 % Cheryl Ginger DO Work Phone: [facility] 05-10-2024 14:20-0400 Systolic blood pressure 118 mm[Hg] Cheryl Ginger DO Work Phone: [facility] 03-03-2023 14:44-0400 Body temperature 98.49 [degF] CJ Hassmann DPM Work Phone: [facility] 03-03-2023 14:44-0400 Diastolic blood pressure 87 mm[Hg] CJ Hassmann DPM Work Phone: [facility] 03-03-2023 14:44-0400 Heart rate 94 /min CJ Hassmann DPM Work Phone: [facility] 03-03-2023 14:44-0400 Systolic blood pressure 139 mm[Hg] CJ Hassmann DPM Work Phone: [facility] 07-02-2022 09:36-0400 Body height 157.5 cm [employer] Work Phone: [facility] 07-02-2022 09:36-0400 Body mass index (BMI) [Ratio] 38.67 kg/m2 [employer] Work Phone: [facility] 07-02-2022 09:36-0400 Body weight 95.89 kg [employer] Work Phone: [facility] 09-16-2020 20:53-0500 BMI (Body Mass Index) 39.32 kg/m2 [facility], [place] 09-16-2020 20:53-0500 Body Temperature 99.5 [degF] [place] 09-16-2020 20:53-0500 Body weight 97.52 kg [place] 09-16-2020 20:53-0500 BP Diastolic 109 mm[Hg] [facility], [place] 09-16-2020 20:53-0500 BP Systolic 189 mm[Hg] [facility], [place] 09-16-2020 20:53-0500 Height 157.5 cm [place] 09-16-2020 20:53-0500 Pulse (Heart Rate) 99 /min [place], [place] 09-16-2020 20:53-0500 Pulse Oximetry 96 % [place] 09-16-2020 20:53-0500 Respiratory Rate 18 /min [place] Encounters Encounter Date Encounter Type Care Provider Facility Start: 06-12-2025 End: 06-12-2025 [facility] Start: 06-12-2025 End: 06-12-2025 Subsequent hospital visit by physician [facility] Laboratory Schedule [facility] Laboratory Comment on above: Arrived Start: 05-24-2025 End: 05-24-2025 [facility] Jennie Van [employer] ADMINISTRATOR-BLADE SHARPENER Work Phone: [facility] BM NEUROLOGY Start: 05-24-2025 End: 05-24-2025 [facility] Van [employer] ADMINISTRATOR-BLADE SHARPENER Work Phone: [facility] BM NEUROLOGY Start: 05-24-2025 End: 05-24-2025 ambulatory JENNIE VAN Not Available Start: 05-24-2025 End: 05-24-2025 Office outpatient visit 25 minutes Jennie Van [employer] ADMINISTRATOR-BLADE SHARPENER Work Phone: [facility] [place] Comment on above: BUCK (obstructive sle ep apnea) (Primary Dx); Cervical paraspinal muscle spasm; Cervical radiculopathy Start: 05-23-2025 End: 05-23-2025 Telephone encounter Lynn Block MD Work Phone: [facility] 111 Start: 05-15-2025 End: 05-15-2025 ambulatory [facility] Start: 05-15-2025 End: 05-15-2025 Subsequent hospital visit by physician [facility] Schedule [facility] Comment on above: Arrived Start: 04-20-2025 End: 04-20-2025 Bamboo flowsheet Robbin Sánchez DPM Work Phone: [email or web address] Start: 04-20-2025 End: 04-20-2025 Bamboo flowsheet Robbin Sánchez DPM Work Phone: [facility] [email or web address] [facility] Start: 04-20-2025 End: 04-20-2025 Office outpatient visit 25 minutes Robbin Sánchez DPM Work Phone: [facility] [email or web address] [facility] Comment on above: MRSA (methicillin re [...] Clinisync Result Encounter Robbin GARCIAM Work Phone: [facility] External Department Unsolicited Start: 04-12-2025 End: 04-12-2025 Clinisync Result Encounter Robbin GARCIAM Work Phone: [facility] External Department Unsolicited Start: 04-11-2025 End: 04-11-2025 Clinisync Result Encounter Robbin GARCIAM Work Phone: [facility] External Department Unsolicited Start: 04-11-2025 End: 04-11-2025 Clinisync Result Encounter Robbin Sánchez DPM Work Phone: [facility] External Department Unsolicited Start: 04-11-2025 End: 04-13-2025 ambulatory [facility] Start: 04-11-2025 End: 04-13-2025 Subsequent hospital visit by physician Robbin GARCIAM Work Phone: [facility] Comment on above: Pain in right foot Start: 04-06-2025 End: 04-06-2025 Office outpatient visit 25 minutes Robbin GARCIAM Work Phone: [facility]AT[facility] Comment on above: Right foot pain (Vikki baldev Dx); Skin ulcer of toe of right foot with fat layer exposed (HCC); Infection of toe; Idiopathic progressive polyneuropathy; Generalized edema Start: 04-06-2025 End: 04-06-2025 ambulatory ROBBIN SÁNCHEZ Not Available Start: 04-06-2025 End: 04-06-2025 Bamboo flowsheet Robbin Sánchez DPM Work Phone: [facility] PODIATRY Start: 04-06-2025 End: 04-06-2025 Bamboo flowsheet Robbin Sánchez DPM Work Phone: [facility] PODIATRY Start: 04-04-2025 End: 04-05-2025 Emergency department patient visit Severo Case MD Work Phone: [facility] Emergency Department Comment on above: Pressure injury of d eep tissue of toe, unspecified laterality (Primary Dx) Start: 03-14-2025 End: 03-14-2025 Bamboo flowsheet Lynn Block MD Work Phone: [facility] NEUROLOGY Start: 03-14-2025 End: 03-14-2025 Bamboo flowsheet Lynn Block MD Work Phone: [facility] NE[facility] Start: 03-14-2025 End: 03-14-2025 Office outpatient visit 25 minutes Lynn Block MD Work Phone: [facility] SWS NEUR B Comment on above: BUCK (obstructive sle ep apnea) (Primary Dx); Claustrophobia ; Hypersomnia Start: 03-14-2025 End: 03-14-2025 ambulatory LYNN BLOCK Not Available Start: 02-15-2025 End: 02-17-2025 ambulatory FELIPE [facility] Start: 02-15-2025 End: 02-17-2025 Subsequent hospital visit by physician Felipe Adam MD Work Phone: [facility] Mammography Comment on above: Encounter for screen ing mammogram for malignant neoplasm of breast Start: 02-13-2025 ambulatory Facility:[facility] Start: 02-13-2025 End: 02-13-2025 Bamboo flowsheet Tiffanie Casas MD Work Phone: [facility] NEUROLOG[facility] Start: 02-13-2025 End: 02-13-2025 Bamboo flowsheet Tiffanie Casas MD Work Phone: [facility] NE[facility] Start: 02-13-2025 End: 02-13-2025 ambulatory TIFFANIE CASAS Not Available Start: 02-13-2025 End: 02-13-2025 Office outpatient visit 25 minutes Tiffanie Casas MD Work Phone: [facility] SWS NEUR Comment on above: Charcot's joint, lef t ankle and foot (Primary Dx); Gait instability; Idiopathic progressive polyneuropathy; Intractable 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 (CMS/HCC); Restless legs; Carpal tunnel syndrome, bilateral; BUCK (obstructive sleep apnea) Start: 12-06-2024 End: 12-06-2024 Bamboo flowsheet Lynn Block MD Work Phone: [facility] NE[facility] Start: 12-06-2024 End: 12-06-2024 Bamboo flowsheet Lynn Block MD Work Phone: [facility] NE[facility] Start: 12-06-2024 End: 12-06-2024 ambulatory LYNN BLOCK Not Available Start: 12-06-2024 End: 12-06-2024 Office outpatient new 60 minutes Lynn Block MD Work Phone: [facility] SWS NEUR B Comment on above: BUCK (obstructive sle ep apnea) (Primary Dx); BUCK on CPAP; Claustrophobia (CMS/HCC) Start: 11-14-2024 End: 11-14-2024 Bamboo flowsheet Fozia Jamila Meng PRINCIPAL ENGINEER Work Phone: [facility] NEUROLOG[facility] Start: 11-14-2024 End: 11-14-2024 Bamboo flowsheet Fozia C Windnagel PRINCIPAL ENGINEER Work Phone: [facility] NEUROLOG[facility] Start: 11-14-2024 End: 11-14-2024 Office outpatient visit 25 minutes Fozia Jamila Meng PRINCIPAL ENGINEER Work Phone: [facility] SWS NEUR Comment on above: BUCK on CPAP (Primary Dx); Idiopathic progressive polyneuropathy; Restless legs; Intractable 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 (CMS/HCC) Start: 11-14-2024 End: 11-14-2024 ambulatory FOZIA C LYNDANAGEL Not Available Start: 11-14-2024 End: 11-14-2024 [facility] Start: 11-14-2024 End: 11-14-2024 Subsequent hospital visit by physician Felipe Adam MD Work Phone: [facility] Comment on above: Pre-diabetes; Mixed hyperlipidemia Start: 11-02-2024 End: 11-02-2024 Telephone encounter Janel Allen PRINCIPAL ENGINEER Work Phone: [facility] NEURO 210 Start: 10-11-2024 End: 10-11-2024 Office outpatient new 45 minutes Felipe Adam MD Work Phone: [facility] Comment on above: Thyroid nodule (Prim misa Dx); Lipoma of neck Start: 10-11-2024 End: 10-11-2024 ambulatory FELIPE BACK [facility] Amb[facility] Start: 10-05-2024 End: 10-06-2024 Refill Tiffanie Casas MD Work Phone: [facility] NEUR Comment on above: Idiopathic progressi ve polyneuropathy; Non-seasonal allergic rhinitis due to pollen Start: 09-14-2024 End: 09-14-2024 Bamboo flowsheet Fozia Meng PRINCIPAL ENGINEER Work Phone: [facility] BM NEUROLOGY Start: 09-14-2024 End: 09-14-2024 Bamboo flowsheet Fozia Meng PRINCIPAL ENGINEER Work Phone: [facility] NEUROLOG[facility] Start: 09-14-2024 End: 09-14-2024 Telephone encounter Fozia Meng PRINCIPAL ENGINEER Work Phone: [facility] 210 Start: 09-14-2024 End: 09-14-2024 Office outpatient visit 25 minutes Fozia Meng PRINCIPAL ENGINEER Work Phone: [facility] NEUR Comment on above: BUCK on CPAP (Primary Dx); Idiopathic progressive polyneuropathy; Intractable 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 (CMS/HCC); Restless legs; Bilateral carpal tunnel syndrome Start: 09-14-2024 End: 09-14-2024 ambulatory FOZIA MENG Not Available Start: 09-09-2024 End: 09-09-2024 Transcribe Orders Fozia Marcus MA [facility] ENT Lien rahman Comment on above: Thyroid nodule (Prim misa Dx) Start: 09-06-2024 End: 09-08-2024 ambulatory [facility] BACK [facility] Start: 09-06-2024 End: 09-08-2024 Subsequent hospital visit by physician Felipe Adam MD Work Phone: [facility] Ultrasound Comment on above: Thyroid nodule Start: 08-11-2024 End: 08-11-2024 Refill Tiffanie Casas MD Work Phone: [facility] Comment on above: Idiopathic progressi ve polyneuropathy; Non-seasonal allergic rhinitis due to pollen Start: 06-10-2024 End: 06-10-2024 Bamboo flowsheet Tiffanie Caass MD Work Phone: [facility] NEUROLOGY Start: 06-10-2024 End: 06-10-2024 Bamboo flowsheet Tiffanie Casas MD Work Phone: [facility] NEUROLOGY Start: 06-10-2024 End: 06-10-2024 Office outpatient visit 25 minutes Tiffanie Casas MD Work Phone: [facility] Comment on above: Idiopathic progressi ve polyneuropathy (Primary Dx); Bilateral carpal tunnel syndrome; Restless legs; Intractable 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 ([facility]/HCC) Start: 06-10-2024 End: 06-10-2024 ambulatory TIFFANIE CASAS Not Available Start: 05-10-2024 End: 05-10-2024 Subsequent hospital visit by physician Felipe Adam MD Work Phone: [facility] Start: 05-10-2024 End: 05-10-2024 Office outpatient visit 40 minutes Cheryl Miles DO Work Phone: [facility] Comment on above: BUCK (obstructive sle ep apnea); Hypersomnia; Snoring; Class 2 obesity due to excess calories with body mass index (BMI) of 38.0 to 38.9 in adult, unspecified whether serious comorbidity present Start: 02-15-2024 End: 02-15-2024 ambulatory Frances Harris Facility:[facility] Start: 02-15-2024 End: 02-15-2024 ambulatory [facility] Frances Harris Work Phone: [facility] Work Phone: Start: 02-15-2024 End: 02-15-2024 Departed Referred DPM Frances Harris Work Phone: [facility] Start: 06-15-2023 End: 06-15-2023 Subsequent hospital visit by physician Felipe Adam MD Work Phone: [facility] Comment on above: Mixed hyperlipidemia Start: 04-03-2023 ambulatory FELIPE BACK [facility] Start: 03-03-2023 End: 03-03-2023 Office outpatient new 45 minutes CJ Adam GARCIAM Work Phone: [facility] Comment on above: Charcot arthropathy of midfoot (Primary Dx); Gastrocnemius equinus, unspecified laterality; Foot pain, left Start: 02-11-2023 End: 02-12-2023 ambulatory [facility] Facility:H1 Start: 02-05-2023 End: 02-05-2023 Subsequent hospital visit by physician Felipe Adam MD Work Phone: [facility] Comment on above: Pelvic pressure in f emale Start: 02-04-2023 End: 02-05-2023 ambulatory FRANCES Weston [facility] Facility:H1 Start: 01-28-2023 End: 01-29-2023 ambulatory FRANCES Weston [facility] Facility:H1 Start: 01-06-2023 End: 01-06-2023 Emergency department patient visit [facility] Start: 07-09-2022 End: 07-09-2022 Subsequent hospital visit by physician Samantha Lino RD, LD Work Phone: [facility] Diet and Nutrition Comment on above: Arrived Start: 07-02-2022 End: 07-02-2022 Subsequent hospital visit by physician anne Diabetes Education Work Phone: [facility] Diabetic Education Start: 06-25-2022 End: 06-27-2022 Subsequent hospital visit by physician Tennille Additional Xray At [facility] Radiology Comment on above: Foreign body (FB) in soft tissue Start: 06-25-2022 End: 06-27-2022 Subsequent hospital visit by physician [facility] M[facility] [place] MRI Comment on above: Pain of foot, unspec ified laterality; Closed nondisplaced fracture of second metatarsal bone of left foot, initial encounter; Closed nondisplaced fracture of lateral cuneiform of left foot, initial encounter Start: 05-27-2022 End: 2022 Subsequent hospital visit by physician [facility] Ultrasound Room [facility] [place] Ultrasound Comment on above: [...] Start: 02-04-2022 End: 02-04-2022 Patient encounter procedure [facility] [address] Start: 02-03-2022 End: 02-03-2022 Subsequent hospital visit by physician Hilaria Trujillo [facility] Start: 01-29-2022 End: 01-29-2022 Subsequent hospital visit by physician Beverly Rangel BARN AND PROPERTY MANAGER [facility] Comment on above: Arrived Start: 01-27-2022 End: 01-27-2022 Subsequent hospital visit by physician Christel Donohue PT [facility] Comment on above: Arrived Start: 01-24-2022 End: 01-24-2022 Subsequent hospital visit by physician Vanessa Garcia PT [facility] Comment on above: Arrived Start: 01-22-2022 End: 01-22-2022 Subsequent hospital visit by physician Beverly Rangel BARN AND PROPERTY MANAGER [facility] Start: 01-17-2022 End: 01-17-2022 Subsequent hospital visit by physician Beverly Rangel BARN AND PROPERTY MANAGER [facility] Comment on above: Arrived Start: 01-13-2022 End: 01-13-2022 Subsequent hospital visit by physician Christel Donohue PT [facility] Start: 01-03-2022 End: 01-03-2022 Subsequent hospital visit by physician Beverly Rangel BARN AND PROPERTY MANAGER [facility] Comment on above: Arrived [...] Start: 11-29-2021 End: 11-29-2021 ambulatory FELIPE ADAM [facility] Start: 08-01-2021 End: 08-01-2021 Subsequent hospital [...] by physician Felipe Adam MD Work Phone: [facility] Start: 04-13-2021 End: 04-13-2021 Subsequent hospital visit by physician Felipe Adam MD Work Phone: [facility] Comment on above: Acute cystitis with hematuria Start: 02-13-2021 End: 02-13-2021 Subsequent hospital visit by physician [facility] Andriy19 Pat Screening Schedule [facility] Comment on above: Suspected COVID-19 v irus infection Start: 01-21-2021 End: 01-21-2021 Subsequent hospital visit by physician [facility] Scre[facility] Comment on above: Viral illness Start: 11-15-2020 End: 11-15-2020 Subsequent hospital visit by physician [facility] Andriy Pat Screening Schedule [facility] Comment on above: Arrived Start: 09-16-2020 End: 09-16-2020 Emergency department patient visit Phillippachecomichael Rooney Work Phone: [facility] ED Comment on above: Acute [...] visit by physician [facility] Schedule [facility] SLEEP LAB Comment on above: Arrived Start: 07-28-2019 End: 07-30-2019 Subsequent hospital visit by physician Tennille Additional Xray At [facility] Radiology Comment on above: MRSA (methicillin re sistant Staphylococcus aureus) septicemia (HCC) Start: 06-17-2019 End: 06-17-2019 Subsequent hospital visit by physician Felipe Adam [facility] Laboratory Comment on above: MRSA (methicillin re sistant Staphylococcus aureus) infection Start: 02-03-2019 End: 02-04-2019 Patient encounter procedure TIFFANIE CASAS [facility] Start: 02-03-2019 End: 02-03-2019 Subsequent hospital visit by physician Tiffanie Casas Work Phone: [facility] MRI Comment on above: Brachial neuritis; Peripheral nerve disorder; Spasm of muscle Start: 11-10-2018 End: 11-10-2018 Patient encounter procedure Andrey Early Facility:[facility] Start: 10-18-2018 End: 10-18-2018 Patient encounter procedure Andrey Early Work Phone: [facility] Start: 10-03-2018 Patient encounter procedure Dav Hartman Facility:[facility] Start: 10-03-2018 End: 10-03-2018 Patient encounter procedure [facility] Start: 09-20-2018 End: 09-21-2018 Patient encounter procedure Gosia Hartman Facility:[facility] Start: 09-20-2018 Patient encounter procedure Facility:[id number] Start: 09-13-2018 Patient encounter procedure GOSIA HARTMAN [facility] Start: 09-06-2018 End: 09-06-2018 Patient encounter procedure Historical Provider [facility] Start: 08-31-2018 End: 08-31-2018 Patient encounter procedure [facility] Provider [facility] Start: 08-27-2018 End: 08-28-2018 Patient encounter procedure Gosia Hartman Facility:[facility] Start: 08-27-2018 Patient encounter procedure Facility:[id number] Start: 08-15-2018 End: 08-25-2018 [facility] and management [facility] Start: 04-02-2018 End: 04-02-2018 Patient encounter procedure Melchor Calderon Facility:[facility] Start: 03-23-2018 Patient encounter procedure Shanice Juares Facility:[facility] Start: 02-04-2018 End: 02-04-2018 Ambulatory Melchor Calderon [facility] Start: 11-24-[address] [facility] Start: 11-17-2017 End: 11-17-2017 Ambulatory Ceferino Corley Work Phone: [facility] Start: 10-20-2017 End: 10-20-2017 Ambulatory DAKSHA KING [facility] Start: 10-20-[address] [facility] Start: 10-09-2017 Ambulatory [facility] Start: 10-09-2017 End: 10-09-[address] [facility] Start: 09-16-[address] [facility] Start: 08-03-2017 [facility] Start: 03-31-2017 End: 03-31-2017 Ambulatory SHANICE GOLDSTEIN MOR [facility] Procedures Date Procedure Procedure Detail [...] Work Phone: Start: 01-21-2021 COVID-19 Pattie smith [employer] ADMINISTRATOR - BLADE SHARPENER Work Phone: Start: 11-15-2020 COVID-19 Dav flores [...] 09-24-2019 Hemoglobin glycosyla jamia a1c Janelsanta Allen [employer] ADMINISTRATOR - BLADE SHARPENER Work Phone: Start: 09-24-2019 VITAMIN B12 & FOLATE Ja danny Dieudonne Allen [employer] ADMINISTRATOR - BLADE SHARPENER Work Phone: Start: 07-28-2019 Radex spine cervical 4 or 5 views Azalea Knight Work Phone: Start: 07-28-2019 Blood count complete auto&auto difrntl wbc Azalea Knight [employer] ADMINISTRATOR - BLADE SHARPENER Work Phone: Start: 07-28-2019 C-reactive protein Azalea Knight [employer] ADMINISTRATOR - BLADE SHARPENER Work Phone: Start: 06-17-2019 Albumin serum plasma [...] otherwise noted, all testing performed by [facility] [address]. [place], [place] [address] CLIA: [id number] Spin Table Operator: Harshad Solano M.D. Start: 09-06-2018 End: [...] JV LEON Velma Start: 08-24-2018 TISSUE CULTURE VJ LANG Start: 08-24-2018 FUNGUS CULTURE JV LANG [...] protein SHOAIB APPLE Start: 08-17-2018 SEDIMENTATION RATE SHAOIB APPLE Start: 08-17-2018 PULSE OXIMETRY, CONTINUOUS JV [...] Start: 08-15-2018 IP CONSULT TO NEUROLOGY JV PAPLE Start: 08-15-2018 Assay of lactate JV APPLE [...] Detail Author Start: 04-14-2030 Lipid panel Lipids [facility] Start: 11-14-2029 Lipid panel Lipids [facility] Start: 2029 Shingles Vaccine (1 of 2) Shingles Vaccine (1 of 2) [facility] [place], [place] Start: 05-02-2029 Lipid panel Lipids [facility] Start: 12-10-2027 Screening for malignant neoplasm of colon [facility] Start: 04-12-2027 Lipid panel Lipids [facility] Start: 02-15-2027 Screening for malignant neoplasm of breast Breast cancer screen [facility] Start: 06-12-2026 GFR test (Diabetes, CKD 3-4, OR last GFR 15-59) GFR test (Diabetes, CKD 3-4, OR last GFR 15-59) [facility] Start: 05-15-2026 GFR test (Diabetes, CKD 3-4, OR last GFR 15-59) GFR test (Diabetes, CKD 3-4, OR last GFR 15-59) [facility] Start: 05-14-2026 Lipid panel [facility] Start: 04-14-2026 GFR test (Diabetes, CKD 3-4, OR last GFR 15-59) GFR test (Diabetes, CKD 3-4, OR last GFR 15-59) [facility] Start: 04-14-2026 Hemoglobin A1c measurement A1C test (Diabetic or Prediabetic) [facility] Start: 04-11-2026 GFR test (Diabetes, CKD 3-4, OR last GFR 15-59) GFR test (Diabetes, CKD 3-4, OR last GFR 15-59) [facility] Start: 11-15-2025 Depression Monitoring Depression Monitoring [facility] [employer] Start: 11-14-2025 GFR test (Diabetes, CKD 3-4, OR last GFR 15-59) GFR test (Diabetes, CKD 3-4, OR last GFR 15-59) [facility] Start: 11-14-2025 Hemoglobin A1c measurement A1C test (Diabetic or Prediabetic) [facility] Start: 10-12-2025 End: 10-12-2025 Patient encounter procedure 10/12/2025 10:30 AM EST Office Visit [facility] [address] [facility] [place] [address] Sherman Adair MD [address] [place] [phone] [facility] Start: 10-11-2025 End: 10-11-2026 US Head and neck soft tissue US Soft Tissue Neck Imaging Routine Thyroid nodule Expected: 10/11/2025, Expires: 10/11/2026 [facility] Work Phone: Comment on above: Expected: 10/11/2025, Expires: Start: 08-23-2025 End: 08-23-2025 Patient encounter procedure 08/23/2025 1:00 PM EST Office Visit [facility] [address] [place] [address] [place] [phone] Jennie Van, [employer] [facility] [address] [facility] [address] [facility] Start: 07-27-2025 End: 07-27-2025 Patient encounter procedure 07/27/2025 11:00 AM EDT Office Visit [facility] [address] [place] [address] Felipe Adam MD [address] [place] [address] Return in about 3 months (around 07/19/2025). [facility] Comment on above: Return in about 3 months (around 025). Start: 06-05-2025 COVID-19 Vaccine () COVID-19 Vaccine ( season) Sid [facility] Start: 05-31-2025 End: 05-24-2026 XR Cervical spine 4 or 5 Views XR cervical spine complete 4 to 5 views Imaging Routine Cervical paraspinal muscle spasm Expected: 05/31/2025, Expires: 05/24/2026 [facility] Work Phone: Comment on above: Expected: 05/31/2025, Expires: Start: 05-25-2025 Lipid panel Lipid screen [facility] [place], [place] Start: 05-24-2025 End: 05-24-2025 Patient encounter procedure 05/24/2025 11:30 AM EDT [facility] [address] [facility] [address] [place] [address] Jennie Van, [employer] ADMINISTRATOR-BLADE SHARPENER [address] [facility] [address] [facility] Start: 05-17-2025 End: 05-17-2025 Patient encounter procedure 05/17/2025 1:20 PM EDT [facility] [address] [facility] [address] [place] [address] Tiffanie Casas MD [address] [facility] [address] [address] [facility] Start: 05-15-2025 End: 05-15-2025 Patient encounter procedure 05/15/2025 1:15 PM EDT Office Visit [facility] [address] [place] [phone] Felipe Adam MD [address] [place] [address] Return in about 6 months (around 05/15/2025). [facility] Comment on above: Return in about 6 months (around 05/15/20). Start: 05-10-2025 GFR test (Diabetes, CKD 3-4, OR last GFR 15-59) GFR test (Diabetes, CKD 3-4, OR last GFR 15-59) [facility] Start: 05-05-2025 Influenza vaccination [facility] Start: 05-02-2025 Hemoglobin A1c measurement A1C test (Diabetic or Prediabetic) [facility] Start: 05-02-2025 End: 05-02-2025 Patient encounter procedure 05/02/2025 2:00 PM EDT Office Visit [facility] B [address] [facility] [address] [place] [address] Fozia Meng, PRINCIPAL ENGINEER [address] , [facility] [address] [place] [address] [facility] B Start: 05-01-2025 End: 05-01-2025 Patient encounter procedure 05/01/2025 4:00 PM EDT Office Visit [facility] [address] [place] [address] Robbin Sánchez, DPM [address] [place] [phone] [facility] Start: 04-20-2025 End: 04-20-2025 Patient encounter procedure 04/20/2025 12:45 PM EDT Office Visit [facility] [address] [place] [address] Robbin Sánchez, DPM [address] [place] [address] Arrived [facility] Comment on above: Arrived Start: 04-06-2025 End: 04-06-2025 Patient encounter procedure 04/06/2025 4:30 PM EDT Office Visit [facility] [address] [place] [address] Robbin Sánchez, DPM [address] [place] [address] Arrived [facility] Comment on above: Arrived Start: 04-06-2025 End: 04-06-2026 Creatinine [Mass/volume] in Serum or Plasma Creatinine, Serum Lab Routine Right foot pain Expected: 04/06/2025 (Approximate), Expires: 04/06/2026 [facility] Comment on above: Expected: 04/06/2025 (Approximate), Expi res: 04/06/2026 Start: 04-06-2025 End: 04-06-2026 MR Foot - right WO and W contrast IV MR foot right w and wo IV contrast Imaging STAT Right foot pain Expected: 04/06/2025, Expires: 04/06/2026 [facility] Work Phone: Comment on above: Expected: 04/06/2025, Expires: Start: 03-14-2025 End: 03-14-2025 Patient encounter procedure [facility] Start: 02-13-2025 End: 02-13-2025 Patient encounter procedure 02/13/2025 1:00 PM EDT Office Visit [facility] [address] [address] Tiffanie Casas MD [address] [facility] [address] [address] [facility] Start: 01-27-2025 Depression Monitoring Depression Monitoring [facility] Start: 11-15-2024 End: 11-15-2024 Patient encounter procedure 11/15/2024 2:45 PM EST Office Visit [facility] [address] [place] [phone] Felipe Adam MD [address] [place] [address] 6 mo [facility] Comment on above: 6 mo Start: 11-14-2024 End: 11-14-2024 Patient encounter procedure [facility] Comment on above: Arrived Start: 11-11-2024 End: 11-11-2024 Patient encounter procedure 11/11/2024 1:00 PM EST Office Visit [facility] [address] [place] [address] Felipe Adam MD [address] [place] [address] 6 mo [facility] Comment on above: 6 mo Start: 09-24-2024 Screening for malignant neoplasm of cervix [facility] Start: 09-14-2024 End: 09-14-2024 Patient encounter procedure 09/14/2024 11:20 AM EST Office Visit [facility] [address] [facility] [address] [place] [address] Fozia Meng PRINCIPAL ENGINEER [address] [phone] Arrived [facility] Comment on above: Arrived Start: 09-08-2024 DTaP/Tdap/Td vaccine (2 - Td or Tdap) DTaP/Tdap/Td vaccine (2 - Td or Tdap) [facility] Start: 09-08-2024 DTaP/Tdap/Td vaccine (2 - Td) DTaP/Tdap/Td vaccine (2 - Td) [place], [place] Start: 09-08-2024 Tetanus vaccination [facility] Start: 09-05-2024 End: 09-05-2024 Patient encounter procedure 09/05/2024 1:00 PM EST Office Visit [facility] [address] [facility] [address] [place] [phone] Tiffanie Casas MD [address] [facility] [address], [place] [phone] [facility] Start: 08-18-2024 End: 08-18-2024 Patient encounter procedure 08/18/2024 1:30 PM EST Office Visit [facility] [address] [facility] [address]nd [place] [address] Luis Mclean, PA-C [address] [facility] [address] [place], [place] [phone] 1 yr med chk [facility] Comment on above: 1 yr med k Start: 08-02-2024 End: 08-02-2024 Patient encounter procedure 08/02/2024 10:45 AM EDT Office Visit [facility] [address] [place] [phone] Cheryl Miles DO [address] [place] [address] [facility] Start: 07-11-2024 End: 07-11-2024 Telemedicine consultation with patient 07/11/2024 11:30 AM EDT Telemedicine [facility] [address] [facility] [address] [place] [address] Janel Allen, PRINCIPAL ENGINEER [address] [facility] [address] [place] [address] [facility] 210 Start: 06-10-2024 End: 06-10-2024 Patient encounter procedure 06/10/2024 10:20 AM EDT Office Visit [facility] [address] [facility] [address] [place] [address] Tiffanie Casas MD [address] [place] [address] Arrived [facility] Comment on above: Arrived Start: 06-05-2024 COVID-19 Vaccine ( season) COVID-19 Vaccine ( season) [facility] Start: 06-05-2024 COVID-19 Vaccine ( season) COVID-19 Vaccine ( season) [facility] Start: 06-05-2024 Influenza vaccination Influenza Vaccine (#1) [facility] Start: 2024 Screening for malignant neoplasm of colon [facility] Start: 05-17-2024 GFR test (Diabetes, CKD 3-4, OR last GFR 15-59) GFR test (Diabetes, CKD 3-4, OR last GFR 15-59) [facility] Start: 05-14-2024 Diabetes screen Diabetes screen [facility] Start: 05-12-2024 End: 05-12-2024 Patient encounter procedure 05/12/2024 11:00 AM EDT Office Visit [facility] PUL Part of [address] [address] Lina Echols MD [facility] [place] [address] BUCK (obstructive sleep apnea) [facility] P[facility] Part of [facility] Comment on above: BUCK (obstructive sleep apnea) Start: 05-11-2024 Lipid panel Lipid screen [place], [place] Start: 05-11-2024 Lipid screen Lipid screen [place] Start: 05-05-2024 Influenza vaccination Flu vaccine (#1) [facility] Start: 03-23-2024 Depression Monitoring Depression Monitoring [facility] Start: 02-06-2024 GFR test (Diabetes, CKD 3-4, OR last GFR 15-59) GFR test (Diabetes, CKD 3-4, OR last GFR 15-59) [facility] Start: 02-06-2024 Hemoglobin A1c measurement A1C test (Diabetic or Prediabetic) [facility] Start: 08-13-2023 End: 08-13-2023 Patient encounter procedure [facility] Start: 06-22-2023 End: 06-22-2023 Patient encounter procedure 06/22/2023 11:15 AM EDT Office Visit [address] [address] Felipe Adam MD [address] [place] [address] [facility] Start: 06-05-2023 Influenza vaccination Sequential Influenza Vaccine (Season Ended) [facility] Start: 05-05-2023 Influenza vaccination [facility] Start: 04-14-2023 End: 04-14-2023 Patient encounter procedure 04/14/2023 Office Visit Family Medicine Felipe Adam MD [address] [place] [address] [facility] Start: 04-12-2023 Hemoglobin A1c measurement A1C test (Diabetic or Prediabetic) [facility] Start: 04-11-2023 Depression Monitoring Depression Monitoring [facility] Start: 04-11-2023 History and physical examination, annual for health maintenance Wellness Visit [facility] Start: 12-25-2022 End: 12-25-2022 Patient encounter procedure 12/25/2022 Office Visit Infectious Diseases Dav Hartman MD [address] [address] [facility] Start: 09-24-2022 Diabetes screen Diabetes screen [place], [place] Start: 08-07-2022 End: 08-07-2022 Patient encounter procedure 08/07/2022 Office Visit Urology Luis Mclean, PA-C [address] [facility] [address] [address] [facility] Start: 07-15-2022 End: 07-15-2022 Nursing evaluation of patient and report 07/15/2022 Nurse Only Family Medicine [facility] Start: 07-09-2022 End: 07-09-2022 Patient encounter procedure 07/09/2022 Appointment IP Unit Samantha Lino, RD, LD [facility] Start: 06-05-2022 Influenza vaccination [facility] Start: 05-20-2022 Creatinine measurement [facility] Start: 05-20-2022 Potassium [Moles/volume] in Serum or Plasma Potassium [facility] Start: 05-20-2022 Potassium monitoring Potassium monitoring [facility] [employer] Start: 05-14-2022 Creatinine measurement Creatinine monitoring [facility] [employer] Work Phone: Start: 05-14-2022 Potassium monitoring Potassium monitoring [facility] Work Phone: Start: 05-05-2022 Influenza vaccination Flu vaccine (#1) [email or web address] Start: 03-20-2022 Screening for malignant neoplasm of cervix [facility] Start: 02-05-2022 End: 02-05-2022 Patient encounter procedure 02/05/2022 Appointment Physical Therapy Christel Donohue PT [facility] Start: 02-03-2022 End: 02-03-2022 Patient encounter procedure [facility] Start: 01-30-2022 End: 01-30-2022 Patient encounter procedure [facility] Start: 01-29-2022 End: 01-29-2022 Patient encounter procedure 01/29/2022 Appointment Physical Therapy Beverly Rangel BARN AND PROPERTY MANAGER [facility] Start: 01-27-2022 End: 01-27-2022 Patient encounter procedure 01/27/2022 Appointment Physical Therapy Christel Donohue PT [facility] Start: 01-24-2022 End: 01-24-2022 Patient encounter procedure 01/24/2022 Appointment Physical Therapy Vanessa Garcia PT [facility] Start: 01-22-2022 End: 01-22-2022 Patient encounter procedure 01/22/2022 Appointment Physical Therapy Beverly Rangel BARN AND PROPERTY MANAGER [facility] Start: 01-17-2022 End: 01-17-2022 Patient encounter procedure 01/17/2022 Appointment Physical Therapy Beverly Rangel BARN AND PROPERTY MANAGER [facility] Start: 01-10-2022 End: 01-10-2022 Patient encounter procedure 01/10/2022 Appointment Physical Therapy Christel Donohue PT [facility] Start: 01-08-2022 End: 01-08-2022 Patient encounter procedure 01/08/2022 Appointment Physical Therapy Beverly Rangel PTA [facility] Start: 01-02-2022 End: 01-02-2022 Patient encounter procedure 01/02/2022 Appointment Occupational Therapy Judi Marie OTA [address] [place] [address] [facility] Start: 12-31-2021 Diabetes screen Diabetes screen [facility] [place], Start: 12-31-2021 End: 12-31-2021 Patient encounter procedure [facility] Start: 12-30-2021 End: 12-30-2021 Patient encounter procedure 12/30/2021 Appointment Occupational Therapy Cheryl Herman OT [facility] Start: 12-27-2021 End: 12-27-2021 Patient encounter procedure 12/27/2021 Appointment Occupational Therapy Eve Gaspar OTA [facility] Start: 11-14-2021 End: 11-14-2021 Patient encounter procedure 11/14/2021 Office Visit Family Medicine Felipe Adam MD [address] [place] [address] [phone] [facility] Start: 10-29-2021 Depression Monitoring Depression Monitoring [facility] Start: 09-16-2021 Creatinine measurement Creatinine monitoring [employer] Phone: Start: 09-16-2021 Potassium monitoring Potassium monitoring [employer] Phone: Start: 08-01-2021 End: 08-01-2021 Patient encounter procedure 08/01/2021 Office Visit Urology Lita Weeks MD [address] [facility], [address] [place], [place] [phone] [facility] Start: 06-05-2021 Influenza vaccination [facility] Start: 05-25-2021 Creatinine measurement Creatinine monitoring [facility] [place] Start: 05-25-2021 HbA1c (Bld) [Mass fraction] A1C test (Diabetic or Prediabetic) [facility] [place], Start: 05-25-2021 Hemoglobin A1c measurement A1C test (Diabetic or Prediabetic) [employer] Phone: Start: 05-25-2021 Potassium monitoring Potassium monitoring [place], [place] Start: 11-13-2020 End: 11-13-2020 Office Visit 11/13/2020 Office Visit Family Medicine BackFelipe MD [address] [place] [address] [phone] [facility] Start: 11-02-2020 Potassium monitoring Potassium monitoring [place] Start: 10-23-2020 End: 10-23-2020 Office Visit 10/23/2020 Office Visit Infectious Diseases Dav Hartman MD [address] [facility]. [address] [place] [phone] [facility] Start: 09-24-2020 HbA1c (Bld) [Mass fraction] A1C test (Diabetic or Prediabetic) [place] Start: 06-17-2020 Creatinine measurement Creatinine monitoring [facility] [place] Start: 06-17-2020 Creatinine monitoring Creatinine monitoring [place], [place] Start: 06-17-2020 Potassium monitoring Potassium monitoring [place] Start: 06-12-2020 End: 06-12-2020 Office Visit 06/12/2020 Office Visit Infectious Diseases Dav Hartman MD [address] [facility]. [address] [place] [address] [phone] [facility] Start: 06-05-2020 Influenza vaccination Flu vaccine (#1) [place] Start: 03-20-2020 Cervical cancer screen Cervical cancer screen [place], [place] Start: 03-20-2020 Screening for malignant neoplasm of cervix [facility] Start: 11-01-2019 End: 11-01-2019 Office Visit 11/01/2019 Office Visit Infectious Diseases Dav Hartman MD [address] [facility]. [address] [place] [address] [phone] [facility] Start: 07-28-2019 End: 07-28-2019 Office Visit 07/28/2019 Office Visit Infectious Diseases Dav Hartman MD [address] [facility]. [address] [place] [address] [phone] [facility] Start: 06-27-2019 End: 06-27-2019 Nurse Only 06/27/2019 Nurse Only Family Medicine [facility] Start: 06-05-2019 Influenza vaccination Flu vaccine (#1) [place] Start: 06-05-2019 Influenza vaccination given SEQUENTIAL INFLUENZA VACCINE (Season Ended) [facility] Start: 2019 Screening for malignant neoplasm of breast [facility] Start: 06-05-2018 Influenza vaccination INFLUENZA VACCINE (#1) [facility] Work Phone: Start: 03-23-2018 End: 03-23-2018 Ambulatory [facility] Start: 2009 Screening for malignant neoplasm of cervix HPV (without or with Pap) [facility] Start: 2000 Screening for malignant neoplasm of cervix PAP SMEAR DISCUSSION [facility] Work Phone: Start: 1998 Hepatitis B vaccine (1 of 3 - 19+ 3-dose series) Hepatitis B vaccine (1 of 3 - 19+ 3-dose series) [facility] Start: 1998 Third diphtheria, tetanus and acellular pertussis (DTaP) vaccination TDAP (ADULT) [facility] Work Phone: Start: 1997 Hepatitis C screening Hepatitis C Screening [facility] Start: 1997 Tetanus vaccination TETANUS [facility] Work Phone: Start: 1995 COVID-19 Vaccine (1) COVID-19 Vaccine (1) [facility] Work Phone: Start: 1994 HIV screen HIV screen [place], [place] Start: 1994 HIV screening HIV screen [facility] Start: 1992 HIV screening HIV SCREENING DISCUSSION [facility] Work Phone: Start: 1991 COVID-19 Vaccine (1) COVID-19 Vaccine (1) [employer] Phone: Start: 1991 Depression Monitoring Depression Monitoring [facility] Start: 1991 Depression screening using PHQ-9 (Patient Health Questionnaire 9) score [facility] Start: 1989 Urine screening for protein Urine Microalbumin [facility] Start: 1985 Pneumococcal Vaccine: Ped or At-Risk (1 - PCV) Pneumococcal Vaccine: Ped or At-Risk (1 - PCV) [facility] Start: 1984 COVID-19 Vaccine (1) COVID-19 Vaccine (1) [facility] Start: 1982 History and physical examination, annual for health maintenance Wellness Visit [facility] Start: 1979 COVID-19 Vaccine (#1) COVID-19 Vaccine (#1) [facility] Start: 1979 Hepatitis B vaccine (1 of 3 - 3-dose series) Hepatitis B vaccine (1 of 3 - 3-dose series) [facility] Start: 1979 Screening for malignant neoplasm of colon [facility] End: 02-13-2021 COVID-19 COVID-19 Lab Routine Suspected COVID-19 virus infection 1 Occurrences starting 02/13/2021 until 02/13/2021 [employer] Phone: Comment on above: 1 Occurrences starting 02/13/2021 until 02/13/2021 COVID-19 COVID-19 Lab Rou luis Suspected COVID-19 virus infection 02/13/2021 3:06 PM EDT [employer] Phone: End: 08-08-2020 COVID-19 Ambulatory COVID-19 Ambulatory Lab Routine SOB (shortness of breath) 1 Occurrences starting 08/08/2020 until 08/08/2020 [facility] [place] Comment on above: 1 Occurrences starting 08/08/2020 until 08/08/2020 COVID-19 Ambulatory COVID-19 Amb ulatory Lab Routine SOB (shortness of breath) 08/08/2020 4:02 PM EST [place], [place] End: 05-20-2021 Creatinine [Mass/volume] in Urine Creatinine, Random Urine Lab Routine Once for 1 Occurrences starting 05/20/2021 until 05/20/2021 [employer] Phone: Comment on above: Once for 1 Occurrences starting 05/20/20 21 until 05/20/2021 Creatinine [Mass/vol ume] in Urine Creatinine, Random Urine Lab Routine 05/20/2021 7:57 PM EDT [employer] Phone: End: 04-13-2021 Culture, Urine Culture, Urine Microbiology Routine Acute cystitis with hematuria 1 Occurrences starting 04/13/2021 until 04/13/2021 [employer] Phone: Comment on above: 1 Occurrences starting 04/13/2021 until 04/13/2021 Culture, Urine [employer] Phone: End: 05-27-2021 Culture, Urine Culture, Urine Microbiology Routine Difficult or painful urination 1 Occurrences starting 05/27/2021 until 05/27/2021 [employer] Phone: Comment on above: 1 Occurrences starting 05/27/2021 until 05/27/2021 End: 06-11-2021 Culture, Urine Culture, Urine Microbiology Routine Acute cystitis with hematuria Recurrent UTI 1 Occurrences starting 06/11/2021 until 06/11/2021 [employer] Phone: Comment on above: 1 Occurrences starting 06/11/2021 until 06/11/2021 End: 07-11-2021 Culture, Urine Culture, Urine Microbiology Routine Frequent UTI Urinary urgency Urinary frequency 1 Occurrences starting 07/11/2021 until 07/11/2021 [employer] Phone: Comment on above: 1 Occurrences starting 07/11/2021 until 07/11/2021 End: 08-01-2021 Culture, Urine Culture, Urine Microbiology Routine Frequent UTI Urinary urgency Urinary frequency 1 Occurrences starting 08/01/2021 until 08/01/2021 [employer] Phone: Comment on above: 1 Occurrences starting 08/01/2021 until 08/01/2021 End: 04-28-2022 Culture, Urine Culture, Urine Microbiology Routine Acute cystitis with hematuria 1 Occurrences starting 04/28/2022 until 04/28/2022 [employer] Phone: Comment on above: 1 Occurrences starting 04/28/2022 until 04/28/2022 End: 02-05-2023 Culture, Urine [facility] Phone: Comment on above: 1 Occurrences starting 02/05/2023 until 02/05/2023 End: 04-04-2025 Culture, Wound (with Gram Stain) [facility] Comment on above: One Time for 1 Occurrences starting 10/2024 until 04/04/2025 End: 02-15-2025 DBT Breast - bilateral screening [facility] Comment on above: 1 Occurrences starting 02/15/2025 until 02/15/2025 End: 04-12-2022 Hemoglobin A1c/Hemoglobin.total in Blood [facility] Phone: Comment on above: 1 Occurrences starting 04/12/2022 until 04/12/2022 End: 02-05-2023 Hemoglobin A1c/Hemoglobin.total in Blood [facility] Phone: Comment on above: Once for 1 Occurrences starting 02/06/20 23 until 02/05/2023 End: 08-29-2019 Home Sleep Study Home Sleep Study Sleep Center Routine One Time for 1 Occurrences starting 08/29/2019 until 08/29/2019 [place], [place] Comment on above: One Time for 1 Occurrences starting 08/06 until 08/29/2019 End: 09-24-2019 Methylmalonic Acid, Serum Methylmalonic Acid, Serum Lab Routine Once for 1 Occurrences starting 09/24/2019 until 09/24/2019 [employer] Phone: Comment on above: Once for 1 Occurrences starting 09/24/20 19 until 09/24/2019 Methylmalonic Acid, Serum Methyl malonic Acid, Serum Lab Routine 09/24/2019 9:33 AM [facility] Phone: End: 09-24-2019 Nuclear Ab [Titer] in Serum by Immunofluorescence ALICJA Lab Routine Once for 1 Occurrences starting 09/24/2019 until 09/24/2019 [employer] Phone: Comment on above: Once for 1 Occurrences starting 09/24/20 until 09/24/2019 Nuclear Ab [Titer] i n Serum by Immunofluorescence ALICJA Lab Routine 09/24/2019 9:33 AM [facility] Phone: End: 05-20-2021 Protein, urine, random Protein, urine, random Lab Routine Once for 1 Occurrences starting 05/20/2021 until 05/20/2021 [employer] Phone: Comment on above: Once for 1 Occurrences starting 05/20/20 until 05/20/2021 Protein, urine, random Protein, urine, random Lab Routine 05/20/2021 7:57 PM EDT [employer] Phone: End: 12-14-2019 Sedimentation Rate Sedimentation Rate Lab Routine MRSA (methicillin resistant Staphylococcus aureus) septicemia (HCC) 1 Occurrences starting 12/14/2019 until 12/14/2019 [place] Comment on above: 1 Occurrences starting 12/14/2019 until 12/14/2019 Sedimentation Rate Sedimentation Rate Lab Routine MRSA (methicillin resistant Staphylococcus aureus) septicemia (HCC) 12/14/2019 12:39 PM EDT [facility] [place] End: 09-24-2019 Sjogrens syndrome-A extractable nuclear antibody Sjogrens syndrome-A extractable nuclear antibody Lab Routine Once for 1 Occurrences starting 09/24/2019 until 09/24/2019 [employer] Phone: Comment on above: Once for 1 Occurrences starting 09/24/20 until 09/24/2019 Sjogrens syndrome-A extractable nuclear antibody Sjogrens syndrome-A extractable nuclear antibody Lab Routine 09/24/2019 9:33 AM [facility] Phone: End: 09-24-2019 Sjogrens syndrome-B extractable nuclear antibody Sjogrens syndrome-B extractable nuclear antibody Lab Routine Once for 1 Occurrences starting 09/24/2019 until 09/24/2019 [employer] Phone: Comment on above: Once for 1 Occurrences starting 09/24/20 until 09/24/2019 Sjogrens syndrome-B extractable nuclear antibody Sjogrens syndrome-B extractable nuclear antibody Lab Routine 09/24/2019 9:33 AM [facility] Phone: End: 09-12-2019 Sleep Study with PAP Titration Sleep Study with PAP Titration Sleep Center Routine One Time for 1 Occurrences starting 09/12/2019 until 09/12/2019 [employer] Phone: Comment on above: One Time for 1 Occurrences starting 06/2019 until 09/12/2019 End: 09-24-2019 Vitamin B6 Vitamin B6 Lab Routine Once for 1 Occurrences starting 09/24/2019 until 09/24/2019 [employer] Phone: Comment on above: Once for 1 Occurrences starting 09/24/20 until 09/24/2019 Vitamin B6 Vitamin B6 Lab R outine 09/24/2019 9:33 AM [facility] Phone: XR Cervical spine 4 or 5 Views XR cervical spine complete 4 to 5 views Imaging Routine Cervical paraspinal muscle spasm 05/24/2025 12:45 PM EDT [facility] Immunizations Immunization Date Immunization Notes Care Provider Yair dai 09-08-2014 tetanus toxoid, redu gaby diphtheria toxoid, and acellular pertussis vaccine, adsorbed Felipe Back [facility] [place] Payers Date Payer Category Payer Managed Care HMO (unspecified) [facility] HMO/CHOICE PLUS/DULCE/DULCE PLUS [id number] 2024 Private Health Insurance [id number]. [id number] 2024 Private Health Insurance [id number] [id number]. [id number] 2024 Self-pay [id number] [phone] [id number] 2017 Blue Cross Blue Shie ld (Indemnity or Managed Care) - Out of State BCBS OUT OF STATE [facility] [id number]. [id number] 2017 Unknown 2016 Unknown [id number] 2016 Unknown [id number] 1.2.840.869374.1.13.239.2.7. [id number] 2014 Medicaid [id number] 2.16.840.1.900646.3.249.13 2014 Medicaid [employer] MEDICAID [employer] MEDICAID xxxxxxxxxxx 2014-Present xxxxxxxxxxx [id number]. [id number] 1979 Unknown [id number] 2.16.840.1.250470.3.579.2.35 6 1979 Unknown [id number] 2.16.840.1.524110.3.579.2.35 6 1979 Unknown [id number] 2.16.840.1.191130.3.579.2.71 7 1979 Unknown [id number] 2.16.840.1.503634.3.579.2.71 7 1979 Unknown [id number] 2.16.840.1.859511.3.579.2.17 5 1979 Unknown [id number] 2.16.840.1.811518.3.579.2.90 3 1979 Unknown [id number] 2.16.840.1.377809.3.579.2.18 2 1979 Unknown [id number] 2.16.840.1.734301.3.579.2.18 5 1979 Unknown [id number] 2.16.840.1.064542.3.579.2.90 3 1979 Unknown [id number] 2.16.840.1.392773.3.579.2.59 3 1979 Unknown [id number] 2.16.840.1.379410.3.579.2.59 3 1979 Unknown [id number] 2.16.840.1.455431.3.579.2.59 3 1979 Unknown [id number] 2.16.840.1.833103.3.579.2.90 3 1979 Unknown [id number] 2.16.840.1.328706.3.579.2.90 3 1979 Unknown [id number] 2.16.840.1.068388.3.579.2.72 7 1979 Unknown [id number] 2.16.840.1.752780.3.579.2.12 59 1979 Unknown [id number] 2.16.840.1.254231.3.579.2.12 59 1979 Unknown [id number] 2.16.840.1.912721.3.579.2.12 59 1979 Unknown [id number] 2.16.840.1.651361.3.579.2.12 59 1979 Unknown [id number] 2.16.840.1.243636.3.579.2.12 59 1979 Unknown [id number] 2.16.840.1.582411.3.579.2.12 59 1979 Unknown [id number] 2.16.840.1.700912.3.579.2.12 59 1979 Unknown [id number] 2.16.840.1.870501.3.579.2.12 59 1979 Unknown [id number] 2.16.840.1.745065.3.579.2.12 59 1979 Unknown [id number] 2.16.840.1.152873.3.579.2.12 59 1979 Unknown [id number] 2.16.840.1.942357.3.579.2.12 59 1979 Unknown [id number] 2.16.840.1.217769.3.579.2.17 4 1979 Unknown [id number] 2.16.840.1.255988.3.579.2.17 4 1979 Unknown [id number] 2.16.840.1.837553.3.579.2.17 4 1979 Unknown [id number] 2.16.840.1.519717.3.579.2.17 4 1979 Unknown [id number] 2.16.840.1.980978.3.579.2.17 4 1979 Unknown [id number] 2.16.840.1.519045.3.579.2.17 4 1979 Unknown [id number] 2.16.840.1.274397.3.579.2.17 4 1979 Unknown [id number] 2.16.840.1.459972.3.579.2.17 4 1959 Unknown [id number] 1.2.840.843657.1.13.239.2.7. 3.430661.315 Unknown 114 Unknown [id number] 2.16.840.1.272151.3.579.2.53 1 Social History Date Type Detail Facility Start: 05-01-2015 End: 08-13-2023 Tobacco smoking status NHIS Never smoker [facility] Work Phone: Start: 1980 Sex Assigned At Not on file [facility] Work Phone: Start: 05-27-2019 End: 11-15-2024 Alcohol intake No [place], [place] Start: 12-13-2019 End: 04-18-2025 Alcohol intake Current non-drinker of alcohol (finding) [place] Start: 12-09-2019 End: 05-13-2021 History SDOH Financial 4 [place] Start: 12-09-2019 End: 05-20-2022 History SDOH Food Worry 1 [place], [place] Start: 12-09-2019 History SDOH Transpo rt Med 2 [place] Start: 05-11-2020 End: 08-13-2023 Tobacco use and exposure Never used [place] Start: 10-30-2021 End: 03-02-2023 Exposure to SARS-CoV-2 (event) Not sure [place] Start: 1980 Sex Assigned At Female F [facility] Start: 05-20-2022 History SDOH Financial 3 [facility] Work Phone: Start: 01-06-2023 End: 11-15-2024 History of Social function [facility] How hard is it for y ou to pay for the very basics like food, housing, medical care, and heating Not very hard [employer] Patient Health Questionnaire 9 item (PHQ-9) total score [Reported] 0 [employer] (I/We) worried wheth er (my/our) food would run out before (I/we) got money to buy more. Never true [employer] At any time in the p ast 12 months, were you homeless or living in [place] [facility] [including now]? No [employer] Start: 10-09-2020 Gender identity Identifies as female gender (finding) [employer] Start: 10-09-2020 Sexual orientation Heterosexual (fin artur) [facility] How hard is it for y ou to pay for the very basics like food, housing, medical care, and heating Somewhat hard [employer] Start: 06-10-2024 End: 04-06-2025 Alcoholic beverage intake Lifetime non-drinker (finding) [facility] Start: 08-19-2023 Alcohol Comment Caffeine Intak e: Yes, pop [facility] Start: 11-14-2012 Sex Female (finding) [employer] How often to you hav e a drink containing alcohol? Never [facility] Start: 04-20-2025 End: 05-24-2025 Alcoholic beverage intake Ex-drinker (finding) [facility] Start: 04-20-2025 Alcohol Comment 1-2 times a year [facility] NEGATED: Highlighted rowStart: NINF History of tobacco use Passive smoker [facility] Functional Status Date Assessment Result Facility [facility] Clinical Notes 12-23-2021 to 05-24-2025 Jennie Van [...] reflexes: Goyo's absent. Ankle clonus absent. Coordination Ahdsdl-im-plut, rapid alternating movements and wdvw-vq-wekb normal bilaterally without dysmetria. Gait Casual gait: [...] current management plan documented in this encounter [facility] 05-23-2025 Telephone encount er Note Patient same day canceled due to her foot being in a boot and cannot drive by herself. [facility] 05-23-2025 Miscellaneous Notes Formattin g of this note might be different from the original. Patient same day canceled due to her foot being in a boot and cannot drive by herself. documented in this encounter [facility] 04-20-2025 History of Presen [...] visit with xra documented in this encounter [facility] 04-14-2025 Evaluation note Diagnosis [...] stage 3a (HCC) documented in this encounter [facility]07-10-2025 Evaluation note* Diagnosis Chronic renal impairment, stage 3a (HCC)- Primary Depression with anxiety Dysthymic disorder Gastroesophageal reflux disease without esophagitis Esophageal reflux Vitamin D deficiency Unspecified vitamin D deficiency Mixed hyperlipidemia BUCK on CPAP Obstructive sleep apnea (adult) (pediatric) Restless legs Restless legs syndrome (RLS) Hyperglycemia Other abnormal glucose Pain in right foot Pain in limb documented in this encounter [facility]07-03-2025 History of Present illness Narrative* Robbin Sánchez DPM - 04/06/2025 4:30 PM EDT Celina Gaspar is a 44 y.o. female presents with chief complaint of Foot Ulcer (RT toe 2 ulcer) HPI: HPI Pt has ulcer on RT toe 2 for about 2 wks. She went to [facility] ER on 04-04-25, xrays, culture and [...] toe or midfoot but also Charcot MRI [facility] 04-11-25 11:30 AM, arrive at 11:00 AM. Pt notified. documented in this encounterRay County Memorial [id number] Evaluation note* Diagnosis Chronic renal impairment, stage 3a (HCC)- Primary Depression with anxiety Dysthymic disorder Gastroesophageal reflux disease without esophagitis Esophageal reflux Vitamin D deficiency Unspecified vitamin D deficiency Mixed hyperlipidemia BUCK on CPAP Obstructive sleep apnea (adult) (pediatric) Restless legs Restless legs syndrome (RLS) Hyperglycemia Other abnormal glucose Pressure injury of deep tissue of toe, unspecified laterality- Primary documented in this encounter [facility]06-10-2025 History of Present illness Narrative* Lynn [...] in about 6 weeks (around 04/25/2025), 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 Lab Frequency Next Occurrence Therapeutic injection carpal [...] vs 2.8, all supine; PLMI=3.6, PLMAI=0.6 ([place]) - MAINE=6.4, position not given PAPT ([place]) - AHI=1.8 @ 12 with REM; PLMI=0 [...] ? [address] ? [place], [place] [address] ? ? fax Neurology ? Clinical Neurophysiology ? Epilepsy ? Sleep Disorders ? Clinical Informatics documented in this encounterRay County Memorial [id number] Evaluation note* Diagnosis Chronic renal impairment, stage [...] Other screening mammogram documented in this encounter [facility]05-12-2025 History of Present illness Narrative* Tiffanie [...] Depression: Not at risk (11/15/2024) Received from [facility] PHQ-2 PHQ-9 Total Score: 0 [...] reflexes: Goyo's absent. Ankle clonus absent. Coordination Odybum-ky-crkv, rapid alternating movements and mauf-kv-hlba normal bilaterally without dysmetria. Gait Normal casual, toe, heel and tandem gait. Romberg is absent. 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 She continues to have significant discomfort in her feet to interrupt her sleep. This is likely worsened by Naemvvc-Gchdd-Sygmt for which she had surgery in February [...] nasal pillows. She will take this to [facility] in [place]. We will get the original sleep study from [facility] for review. She is following with Dr. Block for sleep medicine. EVALUATION: PSG 03/2024 - CPAP [id number] w/heated humidification EMG of BUE 11/25 showed [...] Hernandez acting under the direction of Tiffanie aCsas MD. The content has been reviewed and confirmed for accuracy by Tiffanie Casas MD documented in this encounterRay County Memorial [id number] History of Present illness Narrative* Lynn Block [...] Out of bed 0800. 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 [address] ? [place], [place] [address] ? ? fax Neurology ? Clinical Neurophysiology ? Epilepsy ? Sleep Disorders ? Clinical Informatics documented in this encounterRay County Memorial [id number] Telephone encounter Note* Telephone Encounter - Janel Allen NP - 11/02/2024 9:16 PM EST Pharmacy sends medication clarification for nortriptyline as there are two directions on one received. Per ONUR Gunderson plan increase nortriptyline 50 mg 2 daily/bedtime total of 100 mg. [facility] [id number] Miscellaneous Notes* Telephone Encounter - Janel Allen NP - 11/02/2024 9:16 PM EST Pharmacy sends medication clarification for nortriptyline as there are two directions on one received. Per ONUR Gunderson plan increase nortriptyline 50 mg 2 daily/bedtime total of 100 mg. documented in this encounterRay County Memorial [id number] NoteOPG [address] [facility] [address] MEDICAL OFFICE [facility] [address] Dept: [phone] Loc: [phone] MD Celina Browne 44 y.o. female Patient [...] Resource Strain: Medium Risk (05/08/2024) Received from [facility] Overall Financial Resource Strain (CARDIA) Difficulty of Paying Living Expenses: Somewhat hard Food Insecurity: No Food Insecurity (05/08/2024) Received from [facility] Hunger Vital Sign Worried About Running Out of Food in the Last Year: Never true Ran Out of Food in the Last Year: Never true Transportation Needs: Unknown (05/08/2024) Received from [facility] PRAPARE - Transportation Lack of Transportation (Non-Medical): No Housing Stability: Unknown (05/08/2024) Received from [facility] Housing Stability Vital Sign Unstable Housing [...] of submandibular glands, clear salivary flow from Bennett's ducts, no stones of Bennett's ducts Temporomandibular Joint: no crepitus with motion, no tenderness on palpation, no mayo (more content not included)...[facility] [id number] History of Present illness Narrative* Sherman Adair MD - 10/11/2024 10:05 AM EST [facility] [address] [facility] [address] [facility] [address] Dept: [phone] Loc: [phone] MD Celina Browne Dieudonne Gaspar 44 y.o. [...] Resource Strain: Medium Risk (05/08/2024) Received from [facility] Overall Financial Resource Strain (CARDIA) Difficulty of Paying Living Expenses: Somewhat hard Food Insecurity: No Food Insecurity (05/08/2024) Received from [facility] Hunger Vital Sign Worried About Running Out of Food in the Last Year: Never true Ran Out of Food in the Last Year: Never true Transportation Needs: Unknown (05/08/2024) Received from [facility] PRAPARE - Transportation Lack of Transportation (Non-Medical): No Housing Stability: Unknown (05/08/2024) Received from [facility] Housing Stability Vital Sign Unstable Housing [...] subma ndibular glands, clear salivary flow from Bennett's ducts, no stones of Felipe's ducts Temporomandibular [...] Hematological: Negative. Psychiatric/Behavioral: Negative. documented in this [id number] Telephone encounter Note* Telephone Encounter - Gwen Fan - 09/14/2024 2:18 PM EST Voicemail Received: Our numbers [phone] actually have a question regarding a prescription that was prescribed today, If someone could please call me back. Thank you. Bye. [facility] [id number] Miscellaneous Notes* Telephone Encounter - Gwen Fan - 09/14/2024 2:18 PM EST Voicemail Received: Our numbers [phone] actually have a question regarding a prescription that was prescribed today, If someone could please call me back. Thank you. Mary Carmene. documented in this encounterRay County Memorial [id number] Miscellaneous Notes* Telephone Encounter - My Johnson - 08/11/2024 12:03 PM EST Patient called and requested refill of Lyrica to be sent to [facility] in [place]. documented in this [facility]11-07-2024 Telephone encounter Note* Telephone Encounter - My Alex - 08/11/2024 12:03 PM EST Patient called and requested refill of Lyrica to be sent to [facility] in [place]. [facility] [id number] History of Present illness Narrative* Tequila Obando [...] Grandfather Depression: At risk (01/28/2024) Received from [facility] PHQ-2 PHQ-9 Total Score: 6 [...] reflexes: Goyo's absent. Ankle clonus absent. Coordination Iuhgsh-ec-vtpu, rapid alternating movements and cwdx-tb-bnrr normal bilaterally without dysmetria. Gait Normal casual, [...] Follow up 3 months. documented in this encounterRay County Memorial [id number] History of Present illness Narrative* Cheryl Miles [...] was counseled on the risks of stroke, AL, and sudden with BUCK, along with the [...] to clinic: 3-6 months documented in this encounterRay County Memorial [id number] History of Present illness Narrative* MASSIMO Shook [...] 2022. Shefollows with an outside provider in [place] and was immobilized for an extended period [...] Foot & Ankle Surgery documented in this [id number] NotePROCEDURE: XR ANKLE LT MIN 3 V, [...] Electronically authenticated by: PIPER MERCEDES Date: 2023-01-29 07:05[facility]04-27-2023 NotePROCEDURE: XR ANKLE LT MIN [...] Electronically authenticated by: PIPER MERCEDES Date: 2023-01-29 07:05[facility]10-05-2022 History of Present illness Narrative* [...] BMR: 1573 calories Est. total calorie needs: ~1092-8072 Lab Results Component Value Date/Time TRIG 460 [...] bread Supper: pork chop or chicken, homemade setswana fries, mashed, or baked potato with broccoli [...] duration: 55 minutes. documented in this encounterBON [facility]ITALTag[facility] [employer] Work Phone: 1([phone]) 474-840005-04-2022 History of Present illness Narrative* Christel Donohue, PT - 02/05/2022 9:45 AM EDT [facility] Date: 02/05/2022 Patient Name: Celina Gaspar : 1980 Pt No Showed Appt- Follow up call, left message on voicemail that patient discharged, but to call if has questions or concerns. Christel Donohue, PT Date: 02/05/2022 documented in this [facility] [employer] Phone: [phone]) 533-924205-04-2022 Hospital course Narrative* Christel Donohue, PT - 02/05/2022 9:45 AM EDT Images from the original note were not included. [facility] Therapy Discharge Summary [...] Donohue, PT Date: 02/05/2022 documented in this [facility] [facility] Phone: [phone]) 213-928105-02-2022 History of Present illness Narrative* Jerica Melgar - 02/03/2022 10:30 AM EDT [facility] Date: 02/03/2022 Patient Name: Celina Gaspar : 1980 Pt Cancelled Appt due to no reason for cancel. Jerica Melgar Date: 02/03/2022 documented in this [facility] Work Phone: [phone]) 883-551304-27-2022 History of Present illness Narrative* Beverly Rangel, BARN AND PROPERTY MANAGER - 01/29/2022 9:00 AM EDT Images from the original note were not included. [facility] Therapy Daily Note [...] Increase trunk ROM B rotation WFL-Not Met Roping Tender Goals - Time Frame for snf goals : 10 Detention Goals Time Frame for snf goals : 10 long term care pharmacist goal 1: Decrease pain low back 2/10 at worst x3 days for completing normal activities snf goal 2: Patient to report 50% decrease in radicular symptoms L LE Post Treatment Pain: 5/10 Time In: 0859 Time Out: 0947 Timed Code Treatment Minutes: 48 Minutes Total Treatment Time: 48 Minutes Beverly Gutiérrez Rangel, BARN AND PROPERTY MANAGER Date: 01/29/2022 documented in this [facility] Work Phone: [phone]) 168-572604-25-2022 History of Present illness Narrative* Christel Donohue, PT - 01/27/2022 3:45 PM EDT Images from the original note were not included. [facility] Daily Note [...] Increase trunk ROM B rotation WFL-Not Met Roping Tender Goals - Time Frame for long term care pharmacist goals : 10 Detention Goals Time Frame for long term care pharmacist goals : 10 long term care pharmacist goal 1: Decrease pain low back 2/10 at worst x3 days for completing normal activities long term care pharmacist goal 2: Patient to report 50% decrease in radicular symptoms L LE Post Treatment Pain: 4/10 Time In: 15:50 Time Out : 16:19 Timed Code Treatment Minutes: 34 Minutes Total Treatment Time: 34 Minutes Christel Donohue, PT Date: 01/27/2022 documented in this [facility] Phone: [phone]) [phone] History of Present illness Narrative* Vanessa Garcia, PT - 01/24/2022 9:45 AM EDT Images from the original note were not included. [facility] Daily Note [...] 4: Increase trunk ROM B rotation WFL Roping Tender Goals - Time Frame for snf goals : 10 Detention Goals Time Frame for snf goals : 10 snf goal 1: Decrease pain low back 2/10 at worst x3 days for completing normal activities snf goal 2: Patient to report 50% decrease in radicular symptoms L LE Post Treatment Pain: 5/10 Time In: 0952 Time Out: 1030 Timed Code Treatment Minutes: 38 Minutes Total Treatment Time: 38 Minutes Vanessa Garcia, THERESE Date: 01/24/2022 documented in this [facility] [employer] Phone: [phone]) 296-950004-20-2022 History of Present illness Narrative* Beverly Ranegl, JENNIFER - 01/22/2022 4:45 PM EDT [facility] Date: 01/22/2022 Patient Name: Celina Gaspar : 1980 Patient did not show up for her appointment. Message left on answering machine with a reminder of her next appointment on Thursday. Beverly Rangel BARN AND PROPERTY MANAGER Date: 01/22/2022 documented in this [facility] [employer] Phone: [phone]) [phone] History of Present illness Narrative* Beverly Rangel, BARN AND PROPERTY MANAGER - 01/17/2022 10:30 AM EDT Images from the original note were not included. [facility] Daily Note Date: 01/17/2022 Patient Name: Celina Gaspar : 1980 (41 y.o.) Referring Practitioner: Liliane Sawyer APRN, BLADE SHARPENER Referral Date : 12/19/21 Diagnosis: Lumbar radiculopathy [...] 4: Increase trunk ROM B rotation WFL Detention Goals - Time Frame for long term care pharmacist goals : 10 long term care pharmacist goal 1: Decrease pain low back 2/10 at worst x3 days for completing normal activities long term care pharmacist goal 2: Patient to report 50% decrease in radicular symptoms L LE Post Treatment Pain: 5/10 Time In: 1037 Time Out: 1107 Timed Code Treatment Minutes: 30 Minutes Total Treatment Time: 30 Minutes Beverly Rangel, BARN AND PROPERTY MANAGER Date: 01/17/2022 documented in this encounterRegency Hospital CompanyBeijing [employer] Phone: [phone] History of Present illness Narrative* Eve Gaspar ISAIAH - 01/13/2022 3:15 PM EDT [facility] Date: 01/13/2022 Patient Name: Celina Gaspar : 1980 Pt Cancelled Appt due to no reason given. Eve HannaPRESTON lazcano/Matthew Date: 01/13/2022 documented in this encounterRegency Hospital CompanyBeijing [employer] Phone: [phone]) [phone] History of Present illness Narrative* Beverly Brock Rangel, JENNIFER - 01/03/2022 9:45 AM EDT Images from the original note were not included. [facility] Daily Note [...] 4: Increase trunk ROM B rotation WFL Roping Tender Goals - Time Frame for snf goals : 10 snf goal 1: Decrease pain low back 2/10 at worst x3 days for completing normal activities snf goal 2: Patient to report 50% decrease in radicular symptoms L LE Post Treatment Pain: 5/10 Time In: 0948 Time Out: 1028 Timed Code Treatment Minutes: 40 Minutes Total Treatment Time: 40 Minutes Beverly Rangel, BARN AND PROPERTY MANAGER Date: 01/03/2022 documented in this [facility] Phone: [phone]) [phone] History of Present illness Narrative* Cheryl Herman, OT - 12/31/2021 9:30 AM EDT Images from the original note were not included. [facility]ational Therapy Daily Note [...] Time Frame for Short term goals: STG=LTG Detention Goals Time Frame for long term care pharmacist goals : 12 visits (01/24/2022) snf goal 1: pt to be indepenent in HEP-MET snf goal 2: Pt to demonstrate R wrist flexion to 65 degrees or more in order to engage in daily tasks-MET long term care pharmacist goal 3: Pt to demonstrate R wrist extension to 60 degrees or more in order to engage in daily tasks-MET snf goal 4: Pt to be educated on carpal tunnel do's & dont's in order to prevent further repetitive injury to wrist-MET Timed Code Treatment Minutes: 30 Minutes Time In: 915 Time Out: 945 Timed Coded Minutes: 30 Total Treatment Time: 30 THERESA Houser, OTR/L Date: 12/31/2021 documented in this [facility] Work Phone: [phone]) [phone] Hospital course Narrative* Cheryl Herman OT - 12/31/2021 9:30 AM EDT Images from the original note were not included. 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 Therapist provided pt with handout on Carpal Tunnel Dos & Dont's to avoid re-injury. Prognosis: Fair Goals Short Term Goals Time Frame for Short term goals: STG=LTG Detention Goals Time Frame for snf goals : 12 visits (01/24/2022) snf goal 1: pt to be indepenent in HEP-MET snf goal 2: Pt to demonstrate R wrist flexion to 65 degrees or more in order to engage in daily tasks-MET long term care pharmacist goal 3: Pt to demonstrate R wrist extension to 60 degrees or more in order to engage in daily tasks-MET long term care pharmacist goal 4: Pt to be educated on carpal tunnel do's & dont's in order to prevent further repetitive injury to wrist-MET Reason for Discharge [] Poor Follow Through [] Completion of Prescribed Sessions [x] Optimal Function Achieved [] Patient Discharged Self [x] Goals Achieved Comments: Thank you for this referral THERESA Houser, OTR/L Date: 12/31/2021 documented in this [facility] [employer] Phone: [phone]) [phone] History of Present illness Narrative* Christel Donohue, PT - 12/31/2021 8:30 AM EDT Images from the original note were not included. [facility] Evaluation Date: 12/31/2021 Patient: Celina Gaspar : 1980 Referring Practitioner: Liliane Sawyer APRN, BLADE SHARPENER Referral Date : 12/19/21 Diagnosis: Lumbar radiculopathy [...] ROM B rotation WFL long term care pharmacist goals Time Frame for snf goals : 10 snf goal 1: Decrease pain low back 2/10 at worst x3 days for completing normal activities long term care pharmacist goal 2: Patient to report 50% decrease in radicular symptoms L LE Patient's Goal: Decrease back pain to complete normal activities Timed Code Treatment Minutes: 15 Minutes Total Treatment Time: 45 Time In: 8:30 Time Out: 9:15 Christel Donohue, PT Date: 12/31/2021 documented in this [facility] Work Phone: [phone]) 168-555203-28-2022 History of Present illness Narrative* Cheryl Herman, OT - 12/30/2021 8:30 AM EDT Images from the original note were not included. [facility] Daily Note [...] Time Frame for Short term goals: STG=LTG Detention Goals Time Frame for snf goals : 12 visits (01/24/2022) snf goal 1: pt to be indepenent in HEP-MET long term care pharmacist goal 2: Pt to demonstrate R wrist flexion to 65 degrees or more in order to engage in daily tasks-MET snf goal 3: Pt to demonstrate R wrist extension to 60 degrees or more in order to engage in daily tasks-MET snf goal 4: Pt to be educated on carpal tunnel do's & dont's in order to prevent further repetitive injury to wrist-MET Time In: 835 Time Out: 915 Timed Coded Minutes: 40 Total Treatment Time: 40 THERESA Houser, OTR/L Date: 12/30/2021 documented in this [facility] [employer] Work Phone: [phone]) [phone] History of Present illness Narrative* Cheryl Herman OT - 12/23/2021 8:30 AM EDT Images from the original note were not included. [facility] Evaluation Date: [...] completing these mvmts Left Hand Strength - Electric Drill Operator (lbs) Handle Setting 2: 54#, 50#, 53# (52.3# ave) Left Hand Strength - Pinch (lbs) Lateral: 13.5# Tip: 8# Palmar 3 point: 11# Right Hand Strength - Electric Drill Operator (lbs) Handle Setting 2: 53#, 54#, [...] Time Frame for Short term goals: STG=LTG snf goals Time Frame for long term care pharmacist goals : 12 visits (01/24/2022) snf goal 1: pt to be indepenent in HEP snf goal 2: Pt to demonstrate R wrist flexion to 65 degrees or more in order to engage in daily tasks snf goal 3: Pt to demonstrate R wrist extension to 60 degrees or more in order to engage in daily tasks long term care pharmacist goal 4: Pt to be educated on carpal tunnel do's & dont's in order to prevent further repetitive injury to wrist Patient's Goal: pt wishes to return to prior function Time In: 830 Time Out: 924 Timed Coded Minutes: 0 Total Treatment Time: 54 THERESA Houser, OTR/L 12/23/2021 documented in this [employer] Phone: evaluation note* Diagnosis Viral illness Unspecified viral infection, in conditions classified elsewhere and of unspecified site documented in this encounter [employer] Phone: evalyqngzm note* Diagnosis Suspected COVID-19 virus infection documented in this encounter [employer] Phone: evaluation note* Diagnosis Acute cystitis with hematuria Acute cystitis documented in this encounter [employer] Phone: evaluation note* Diagnosis Difficult or painful urination Dysuria documented in this encounter [employer] Phone: evalseweku note* Diagnosis Acute cystitis with hematuria Acute cystitis Recurrent UTI Urinary tract infection, site not specified documented in this encounter [employer] Phone: [email or web address] note* Diagnosis Frequent UTI Urinary tract infection, site not specified Urinary urgency Urgency of urination Urinary frequency documented in this encounter [employer] Phone: evalgarfuu note* Diagnosis Frequent UTI Urinary tract infection, site not specified Urinary urgency Urgency of urination Urinary frequency documented in this encounter [employer] Phone: evaldplops note* Diagnosis MRSA (methicillin resistant Staphylococcus aureus) septicemia (HCC) Methicillin resistant staphylococcus aureus septicemia documented in this encounter [facility] noteNo assessment information availableFirelands Regional Medical [facility] Work Phone: Evaluation note* Diagnosis Fatigue, unspecified type Encounter for screening for HIV Mixed hyperlipidemia Hyperglycemia Other abnormal glucose Chronic renal impairment, stage 3b (HCC) documented in this encounter [facility] [employer] Phone: evaluation note* Diagnosis Acute cystitis with hematuria Acute cystitis documented in this encounter [employer] Phone: evaluation note* Diagnosis Neck mass Swelling, mass, or lump in head and neck documented in this encounter [employer] Phone: evaltcnqrt note* Diagnosis Pain of foot, unspecified laterality Closed nondisplaced fracture of second metatarsal bone of left foot, initial encounter Closed nondisplaced fracture of lateral cuneiform of left foot, initial encounter documented in this encounter [facility] [employer] Phone: evalnrerok note* Diagnosis Foreign body (FB) in soft tissue Residual foreign body in soft tissue documented in this encounter [facility] [employer] Phone: evaluation note* Diagnosis Pelvic pressure in female Other specified symptom associated with female genital organs documented in this encounter [facility] [employer] Phone: evaluation note* Diagnosis Charcot arthropathy of midfoot- Primary Gastrocnemius equinus, unspecified laterality Foot pain, left Pain in soft tissues of limb [facility]* Diagnosis Mixed hyperlipidemia documented in this encounter [facility]* Diagnosis Idiopathic progressive polyneuropathy Non-seasonal allergic rhinitis due to pollen documented in this encounter [facility]* Diagnosis Thyroid nodule Nontoxic uninodular goiter documented in this encounter [facility] note* Diagnosis Thyroid nodule- Primary Nontoxic uninodular goiter [facility]* Diagnosis BUCK on CPAP- Primary 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 (CMS/HCC) Restless legs Restless legs syndrome (RLS) Bilateral carpal tunnel syndrome Carpal tunnel syndrome documented in this encounter [facility]* Diagnosis Idiopathic progressive polyneuropathy- Primary Bilateral carpal tunnel syndrome Carpal tunnel syndrome Restless legs Restless legs syndrome (RLS) Intractable 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 (CMS/HCC) documented in this encounter [facility] HealthcareEvaluation note* Diagnosis BUCK (obstructive sleep apnea) Obstructive sleep apnea (adult) (pediatric) Hypersomnia Hypersomnia, unspecified Snoring Other dyspnea and respiratory abnormality Class 2 obesity due to excess calories with body mass index (BMI) of 38.0 to 38.9 in adult, unspecified whether serious comorbidity present documented in this encounter [facility]* Diagnosis Idiopathic progressive polyneuropathy Non-seasonal allergic rhinitis due to pollen documented in this encounter [facility] HealthcareEvaluation note* Diagnosis Thyroid nodule- Primary Nontoxic uninodular goiter Lipoma of neck documented [facility] this [facility]* Diagnosis 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 (CMS/HCC) documented in this encounter [facility]* Diagnosis BUCK on CPAP- Primary Idiopathic progressive polyneuropathy Restless legs Restless legs syndrome (RLS) Intractable 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 (CMS/HCC) documented in this encounter [facility]* Diagnosis Pre-diabetes Other abnormal glucose Mixed hyperlipidemia documented in this encounter [facility]* Diagnosis BUCK (obstructive sleep apnea)- Primary Obstructive sleep apnea (adult) (pediatric) BUCK on CPAP Claustrophobia (CMS/HCC) Other isolated or specific phobias documented in this encounter [facility] HealthcareEvaluation note* Diagnosis BUCK (obstructive sleep apnea)- [...] through Care Everywhere. * Diabetic Foot Ulcer ([place]) [facility] Narrative* Other (Routine) - Closed Specialty Diagnoses / Procedures Referred By Contac t Referred To Contact Radiology Diagnoses Encounter for screening mammogram for malignant neoplasm of breast Procedures NITA BRIAN DIGITAL SCREEN BILATERAL Back, MD Felipe [address] [id number] Phone: tel: fax: Referral ID Status Reason Start Date Expiration Date Visits Re quested Visits Authorized [id number] Closed 01/29/2025 01/29/2026 1 1 [facility] Narrative* Imaging (Emergency) - Pending Review Specialty Diagnoses / Procedures Referred By Thor bernal Referred To Contact Radiology Diagnoses Pain in right foot Procedures MRI FOOT RIGHT W WO CONTRAST Robbin Sánchez, DPDieudonne [address] [facility] [facility], [place] [address] Phone: tel: fax: Referral ID Status Reason Start Date Expiration Date V isits Requested Visits Authorized [id number] Pending Review 04/11/2025 04/10/2026 1 1 [facility] Summary Purpose Family History No Family [...] FoundDocuments on File Type Date Recorded Patient Province Archivist Expl anation Advance Directives and Living Will Power of Dental Amalgam Processor Latest Code Status on File Code Status Date Activated Date Inactivated Comments Full Code 08/15/2018 4:17 PM 08/25/2018 8:55 PM Full Code 03/19/2017 1:37 PM 03/19/2017 4:32 PM Full Code 03/19/2017 10:57 AM 03/19/2017 1:37 PM Full Code 03/05/2017 12:56 PM 03/05/2017 3:55 PM Full Code 03/05/2017 10:05 AM 03/05/2017 12:56 PM Documents on File Type Date Recorded Patient Province Archivist Expl anation ACP-Advance Directive ACP-Power of Dental Amalgam Processor Documents on File Type Date Recorded Patient Province Archivist Expl anation ACP-Advance Directive ACP-Power of Dental Amalgam Processor Latest Code Status on File Code Status [...] Everywhere. * Back Care Basics: General Info ([place]) * Back: Preventing Injuries ([place]) documented in this encounter Reason for Referral Status Reason Specialty Diagnoses / Procedures Referre d By Contact Referred To Contact Closed Radiology Diagnoses Brachial neuritis Peripheral nerve disorder Spasm of muscle Procedures MR Cervical Spine Without Contrast Tiffanie Casas MD [address] [place] [address] Specialty Diagnoses / Procedures Referred By Liangac t Referred To Contact Radiology Diagnoses Neck mass Procedures US HEAD NECK SOFT TISSUE THYROID Felipe Adam MD [address] [place] [address] Referral ID Status Reason Start Date Expiration Date Visits Re quested Visits Authorized [id number] Closed 05/27/2022 05/27/2023 1 1 Specialty Diagnoses / Procedures Referred By Thor bernal Referred To Contact Radiology Diagnoses Thyroid nodule Procedures US THYROID Felipe Adam MD [address] [place] [address] Referral ID Status Reason Start Date Expiration Date V isits Requested Visits Authorized [id number] Pending Review 09/06/2024 08/26/2025 1 1 Chief Complaint and Reason for Visit Chief Complaint M54.16 M79.10 M79.60 9 R20.9 Chief Complaint Unknown Additional Source Comments INFORMATION SOURCE (unrecogn ized section and content) DATE CREATED AUTHOR 03/30/2018 [facility] DATE CREATED AUTHOR AUTHOR'S ORGANIZ ATION 03/30/2018 [facility] DATE CREATED AUTHOR AUTHOR'S ORGANIZ ATION 09/15/2018 [facility] DATE CREATED AUTHOR AUTHOR'S ORGANIZ ATION 09/23/2018 [facility] DATE CREATED AUTHOR AUTHOR'S ORGANIZ ATION 09/26/2018 [facility] DATE CREATED AUTHOR AUTHOR'S ORGANIZ ATION 12/10/2018 [facility] DATE CREATED AUTHOR AUTHOR'S ORGANIZ ATION 12/18/2018 [facility] DATE CREATED AUTHOR AUTHOR'S ORGANIZ ATION 02/11/2019 [facility] DATE CREATED AUTHOR AUTHOR'S ORGANIZ ATION 11/30/2021 [facility] DATE CREATED AUTHOR AUTHOR'S ORGANIZ ATION 05/01/2022 [facility] DATE CREATED AUTHOR AUTHOR'S ORGANIZ ATION 01/12/2023 [facility] DATE CREATED AUTHOR AUTHOR'S ORGANIZ ATION 02/15/2023 [facility] DATE CREATED AUTHOR AUTHOR'S ORGANIZ ATION 04/04/2023 [facility] DATE CREATED AUTHOR AUTHOR'S ORGANIZ ATION 02/20/2024 [facility] DATE CREATED AUTHOR AUTHOR'S ORGANIZ ATION 10/17/2024 [facility] DATE CREATED AUTHOR AUTHOR'S ORGANIZ ATION 02/14/2025 [facility] DATE CREATED AUTHOR AUTHOR'S ORGANIZ ATION 2025 [facility] EPIC DATE CREATED AUTHOR AUTHOR'S ORGANIZ ATION 06/13/2025 [facility] Reason for Visit (unrecogniz ed section and content) Reason Comments Sleep Apnea Specialty Diagnoses / Procedures Referred By Thor bernal Referred To Contact Neurology Diagnoses BUCK on CPAP Procedures DE OFFICE/OUTPATIENT NEW HIGH MDM 60 MINUTES Fozia Meng, PRINCIPAL ENGINEER [address], [facility] [address] [place] [address] Phone: tel: fax: Lynn Block MD [address] [facility] [address] [place] [address] Phone: tel: fax: Referral ID Status Reason Start Date Expiration Date V isits Requested Visits Authorized [id number] Closed Specialty Services Required 11/14/2024 05/13/2025 1 1 Status Reason Specialty Diagnoses / Procedures Referre d By Contact Referred To Contact Closed Radiology Diagnoses Brachial neuritis Peripheral nerve disorder Spasm of muscle Procedures MR Cervical Spine Without Contrast Tiffanie Casas MD [address] [address] Specialty Diagnoses / Procedures Referred By Contac t Referred To Contact Occupational Therapy Diagnoses Carpal tunnel syndrome Carpal Tunnel Syndrome Procedures Eval and treat Keenan Lozano MD [address] [place] [address] [facility] [address] [place] [address] Referral ID Status Reason Start Date Expiration Date Visits Re quested Visits Authorized [id number] Open 12/19/2021 12/19/2022 1 1 Specialty Diagnoses / Procedures Referred By Contac t Referred To Contact Physical Therapy Diagnoses Radiculopathy, lumbar region Lumbar Radiculopathy Procedures Eval and treat Janel Allen, WIDE AREA NETWORK SYSTEMS ADMINISTRATOR - BLADE SHARPENER [address] [address] [facility] [address] [place] [address] Referral ID Status Reason Start Date Expiration Date Visits Re quested Visits Authorized [id number] Open 12/19/2021 12/19/2022 1 1 Specialty Diagnoses / Procedures Referred By Contac t Referred To Contact Radiology Diagnoses Neck mass Procedures US HEAD NECK SOFT TISSUE THYROID Back, MD Felipe [address] [place] [address] Referral ID Status Reason Start Date Expiration Date Visits Re quested Visits Authorized [id number] Closed 05/27/2022 05/27/2023 1 1 Specialty Diagnoses / Procedures Referred By Liangac t Referred To Contact Radiology Diagnoses Pain of foot, unspecified laterality Closed nondisplaced fracture of lateral cuneiform of left foot, initial encounter Procedures MRI FOOT LEFT W WO CONTRAST MRI FOOT LEFT W WO CONTRAST Robbin Sánchez, DPM [address] [facility], [address] [place] [id number] Referral ID Status Reason Start Date Expiration Date Visits Re quested Visits Authorized [id number] Closed 06/20/2022 06/20/2023 1 1 Reason Comments Education Class Specialty Diagnoses / Procedures Referred By Thor t Referred To Contact Diabetes Services Diagnoses Pre-diabetes Felipe Adam MD [address] [place] [address] [facility] [address] [place] [address] Referral ID Status Reason Start Date Expiration Date V isits Requested Visits Authorized [id number] Open Specialty Services Required 06/30/2022 06/30/2023 2 2 Specialty Diagnoses / Procedures Referred By Thor t Referred To Contact Diabetes Services Diagnoses Pre-diabetes Felipe Adam MD [address] [place] [phone] [facility] [address] [place] [phone] Reason Comments Other Left foot charcot on -going since 06/2022. New x-rays today. 2nd of opinion. Specialty Diagnoses / Procedures Referred By Thor t Referred To Contact Radiology Diagnoses Thyroid nodule Procedures US THYROID Felipe Adam MD [address] [place] [phone] Referral ID Status Reason Start Date Expiration Date V isits Requested Visits Authorized [id number] Pending Review 09/06/2024 08/26/2025 1 1 Reason Onset Date Comments Med Refill 10/05/2024 Reason Comments New Patient FNA - THYROID NODULE Specialty Diagnoses / Procedures Referred By Thor bernal Referred To Contact Otolaryngology Diagnoses Thyroid nodule Back, MD Felipe [address] [place] [address] Phone: tel: fax: Sherman Adair MD [address] [place] [phone] Phone: tel: fax: Referral ID Status Reason Start Date Expiration Date V isits Requested Visits Authorized [id number] Pending Review 09/09/2024 09/09/2025 1 1 Reason [...] Care Teams (unrecognized sec tion and content) Manager Corporate Relationship Specialty Start Date End Date Back, MD Felipe [address] [place] [address] PCP - General Internal Medicine 11/14/11 Manager Corporate Relationship Specialty Start Date End Date Back, MD Felipe [address] [place] [address] PCP - General Internal Medicine 11/14/11 Manager Corporate Relationship Specialty Start Date End Date Back, MD Felipe [address] [place] [address] PCP - General Internal Medicine 11/14/11 Manager Corporate Relationship Specialty Start Date End Date Back, MD Felipe [address] [place] [phone] PCP - General Internal Medicine 11/14/11 Manager Corporate Relationship Specialty Start Date End Date Back, MD Felipe [address] [place] [address] PCP - General Internal Medicine 11/14/11 Manager Corporate Relationship Specialty Start Date End Date Back, MD Felipe [address] [place] [address] PCP - General Internal Medicine 11/14/11 Manager Corporate Relationship Specialty Start Date End Date Back, MD Felipe [address] [place] [address] PCP - General Internal Medicine 11/14/11 Team Status: Inactive Member Role Status Dates NON STAFF Primary Care Provider Active Tiffanie Casas MD Attending Provider Active Team Status: Active Member Role Status Dates NON STAFF Primary Care Provider Active Manager Corporate Relationship Specialty Start Date End Date Back, MD Felipe [address] [place] [address] PCP - General Internal Medicine 11/14/11 Manager Corporate Relationship Specialty Start Date End Date Back, MD Felipe [address] [place] [address] PCP - General Internal Medicine 11/14/11 Manager Corporate Relationship Specialty Start Date End Date Back, MD Felipe [address] [place] [address] PCP - General Internal Medicine 11/14/11 Manager Corporate Relationship Specialty Start Date End Date Back, MD Felipe [address] [place] [address] PCP - General Internal Medicine 11/14/11 Manager Corporate Relationship Specialty Start Date End Date Back, MD Felipe [address] [place] [address] PCP - General Internal Medicine 11/14/11 Manager Corporate Relationship Specialty Start Date End Date Back, MD Felipe [address] [facility], [facility] PCP - General Internal Medicine 11/14/11 Manager Corporate Relationship Specialty Start Date End Date Back, MD Felipe [address] [facility], [place] [address] PCP - General Internal Medicine 11/14/11 Manager Corporate Relationship Specialty Start Date End Date Back, MD Felipe [address] [facility], [place] [address] PCP - General Internal Medicine 11/14/11 Manager Corporate Relationship Specialty Start Date End Date Back, MD Felipe [address] [place] [address] PCP - General Internal Medicine 03/26/15 Manager Corporate Relationship Specialty Start Date End Date Back, MD Felipe [address] [facility], [place] [address] PCP - General Internal Medicine 11/14/11 Team Status: Inactive Member Role Status Dates Frances Harris DPM MS Attending Provider Active Start: February 15, 2024 End: February 15, 2024 Manager Corporate Relationship Specialty Start Date End Date Back, MD Felipe [address] [facility], [place] [address] PCP - General Internal Medicine 11/14/11 Manager Corporate Relationship Specialty Start Date End Date Back, MD Felipe [address] [facility], [place] [address] PCP - General Internal Medicine 11/14/11 Manager Corporate Relationship Specialty Start Date End Date Back, MD Felipe [address] [place] [id number] PCP - General Internal Medicine 03/26/15 Manager Corporate Relationship Specialty Start Date End Date Back, MD Felipe [address] [place] [address] PCP - General Internal Medicine 03/26/15 Manager Corporate Relationship Specialty Start Date End Date Back, MD Felipe [address] [facility], [place] [address] PCP - General Internal Medicine 11/14/11 Manager Corporate Relationship Specialty Start Date End Date Back, MD Alcides [address] [facility], [place] [address] PCP - General Family Medicine 12/08/24 Manager Corporate Relationship Specialty Start Date End Date Back, MD Alcides [address] [place] [address] PCP - General Family Medicine 12/08/24 Manager Corporate Relationship Specialty Start Date End Date Back, MD Felipe [address] [place] [address] PCP - General Internal Medicine 11/14/11 Manager Corporate Relationship Specialty Start Date End Date Back, MD Alcides [address] [place] [address] PCP - General Family Medicine 12/08/24 Manager Corporate Relationship Specialty Start Date End Date Back, MD Felipe [address] [facility], [place] [address] PCP - General Internal Medicine 11/14/11 Manager Corporate Relationship Specialty Start Date End Date Back, MD Alcides [address] [facility], [place] [address] PCP - General Family Medicine 12/08/24 Manager Corporate Relationship Specialty Start Date End Date Back, MD Alcides [address] [place] [address] PCP - General Family Medicine 12/08/24 Manager Corporate Relationship Specialty Start Date End Date Back, MD Alcides [address] [place] [address] PCP - General Family Medicine 12/08/24 Manager Corporate Relationship Specialty Start Date End Date Back, MD Alcides [address] [place] [address] PCP - General Family Medicine 12/08/24 Manager Corporate Relationship Specialty Start Date End Date Back, MD Felipe [address] [place] [address] PCP - General Internal Medicine 11/14/11 Manager Corporate Relationship Specialty Start Date End Date Back, MD Felipe [address] [place] [address] PCP - General Internal Medicine 11/14/11 Manager Corporate Relationship Specialty Start Date End Date Back, MD Alcides [address] [place] [address] PCP - General Family Medicine 12/08/24 Manager Corporate Relationship Specialty Start Date End Date Back, MD Felipe [address] [place] [address] PCP - General Internal Medicine 11/14/11 Manager Corporate Relationship Specialty Start Date End Date Back, MD Alcides [address] [place] [address] PCP - General Family Medicine 12/08/24 Manager Corporate Relationship Specialty Start Date End Date Alcides Adam MD [address] [place] [address] PCP - General Family Medicine 12/08/24 Goals [...] THE PRIMARY CLINICAL RECORDS. [facility]. provides no warranty or guarantee of the accuracy or completeness of information in this document.
== END 2025-06-28 10:00 | disposition home or self-care (01) ==
LOC: RAD 10:00
PROVIDERS: PCP Internal Medicine; Visit Provider Physician Assistant
DX: L97.529 Non-pressure chronic ulcer of other part of left foot with unspecified severity (principal); L97.519 Non-pressure chronic ulcer of other part of right foot with unspecified severity; E11.621 Type 2 diabetes mellitus with foot ulcer; L97.422 Non-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 with fat layer exposed; A52.16 Charcot's arthropathy (tabetic)
CPT/HCPCS: 11042; 73630

== ENCOUNTER 2025-06-28 10:45 | Outpatient (OUT) | payer OTHER, SELFPAY ==
--- OUTSIDE RECORDS SUMMARY | 2025-06-28 10:48 | XMS_ITS | Encounter Summary ---
Author Organization [facility] Address [address] [facility] [place] [address] Care Team Providers Care Ignition Mechanic Name Role Phone Alcides Adam MD Primary Care Provider [phone] Encounter Details Date Type Department Care Team (Late Contact Info) Description 08/24/2023 Clinisync Result Encounter [facility] External Department Unsolicited Trace Casas MD [address] [address] Social History Tobacco Use Types [...] Office Visit [facility] [address] [facility] [place] [address] Jennie Barajas, INDUSTRIAL PLANT CUSTODIAN-QUENCHING CAR OPERATOR [address] [place], [place] [phone] documented as of this encounter Procedures Procedure [...] on filedocumented in this encounter Care Teams Ignition Mechanic Relationship Specialty Start Date End Date Back, MD Alcides [address] [place] [address] PCP - General Family Medicine 12/08/24 documented as of this encounter
--- OUTSIDE RECORDS SUMMARY | 2025-06-28 10:48 | XMS_ITS | Clinical Summary ---
Author Organization [facility] Address [address] [place] [address] Care Team Providers Care Primer Waterproofing Machine Operator Name Role Phone Felipe Adam MD Primary Care Provider [phone] Allergies Active Allergy Reactions Criticality Noted Date [...] 10:30 AM EST Office Visit [facility] [address] [place] [address] Dimas Adair MD [address] [place] [address] Health Maintenance Due Date Last Done Comments [...] Screen Negative Negative 10/21/2017 9:47 AM EST [facility] Blood BLOOD SPECIMEN / Unknown 10/20/2017 5:25 PM EST 10/20/2017 10:58 PM EST Narrative [facility] - 10/21/2017 9:47 AM EST Test performed using [employer] Immunodiagnostic system. us Edu Parry MD LAB BLOOD ORDERABLES Lou l Result [facility] [address] [place] [address] * High Risk HPV with Genotype 16,18 (03/20/2017 12:00 AM EDT) HPV 16 Negative Negative 04/01/2017 2:01 PM EDT [facility] HPV 18 Negative Negative 04/01/2017 2:01 PM EDT [facility] HPV, Other HR Types Negative Negative 04/01/2017 2:01 PM EDT [facility] Pap, Liquid Based CERVIX UTERI STRUCTURE / Unknown 03/20/2017 03/31/2017 9:32 PM EDT Narrative [facility] - 04/01/2017 2:01 PM EDT Assay performed using [employer] Twin 4800 system utilizing Real-Time PCR to amplify target HPV DNA. This system specifically identifies HPV16 and HPV18 while concurrently detecting the other twelve high risk types (31,33,35,39,45,51,52,56,58,59,66,68). Shanice Richard DO BODY FLUIDS AND STO OLS ORDERABLES Final Result [facility] [address] [place] [address] * Thinprep Pap Smear (03/20/2017 12:00 AM [...] HPV DNA. This system specifically identifies HPV16 [id number] while concurrently detecting the other twelve high risk types(31,33,35,39,45,51,52,56,58,59,66,68). Completed by on 2017-04-02 Electronically Signed By Arielle NEFF (ASCP) , Septic Pump Truck Driver (Case signed 03/30/2017) The Papanicolaou smear is a screening tool, and like any screen, has an inherent false negative rate. Interpretation of results should be made in the context of patient history and clinical findings. Shanice Leemary Jose Manuel DO PATHOLOGY/CYTOLOGY ORDERABLES Final Result [place] from Last 3 Months or Most Recently Relevant to Health Maintenance Insurance [facility] HMO/CHOICE PLUS/DULCE/DULCE PLUS Care Teams Primer Waterproofing Machine Operator Relationship Specialty Start Date End Date Back, MD Felipe [address] [place] [address] PCP - General Internal Medicine 03/26/15
--- OUTSIDE RECORDS SUMMARY | 2025-06-28 10:48 | XMS_ITS | Clinical Summary ---
Author Organization [facility] Address [address] [place] [address] Phone Care Team Providers Care Contract Lead Name Role Phone Unavailable Primary Care Provider [...]
--- OUTSIDE RECORDS SUMMARY | 2025-06-28 10:48 | XMS_ITS | Clinical Summary ---
Author Organization [facility] Address [address] [place] [address] Care Team Providers Care Pole Peeling Machine Operator Name Role Phone Back, Alcides MELENDREZ Primary Care Provider [phone] Allergies No known active allergies Medications Cetirizine [...] (09/29/2017): Added automatically from request for surgery [id number] Basal cell carcinoma of skin of face [...] to complete this topic Insurance Care Teams Pole Peeling Machine Operator Relationship Specialty Start Date End Date Back, MD Alcides [address] [place] [address] PCP - General Internal Medicine 07/31/17
--- OUTSIDE RECORDS SUMMARY | 2025-06-28 10:48 | XMS_ITS | Encounter Summary ---
Author Organization [facility] Address [address] [place] [address] Care Team Providers Care Medical Library Assistant Name Role Phone Alcides Adam MD Primary Care Provider [phone] Reason for Visit * Reason Comments Med Refill Encounter Details Date Type Department Care Team (Late st Contact Info) Description 07/20/2023 Refill [facility] [address] [facility] [address] [place] [address] Trace Casas MD [address] [facility] [address] [place] [address] Idiopathic progressive polyneuropathy Social History Tobacco Use [...] Neurology [address] [place] [address] Jennie Barajas, HYDRAULIC BULL RIVETER OPERATOR-WHOLESALE ACCOUNT MANAGER [address] [facility] [place], [place] [id number] documented as of this encounter Visit Diagnoses Diagnosis Idiopathic progressive polyneuropathy documented in this encounter Care Teams Medical Library Assistant Relationship Specialty Start Date End Date Back, MD Alcides [address] [place] [address] PCP - General Family Medicine 12/08/24 documented as of this encounter
--- OUTSIDE RECORDS SUMMARY | 2025-06-28 10:49 | XMS_ITS | Clinical Summary ---
Author Organization [facility] Address [address] [place] [address] Care Team Providers Care Superintendent Container Terminal Name Role Phone Alcides Adam MD Primary Care Provider [phone] Allergies Active Allergy Reactions Criticality Noted Date [...] Orders: Ambulatory referral to Neurology Epidural abscess ([facility]) 08/20/2018 Septic arthritis 08/20/2018 Abdominal pain 05/04/2018 Pure hyperglyceridemia 05/04/2018 Pyelonephritis 05/04/2018 Neoplasm of uncertain behavior of skin 8 Peripheral neuropathy 12/01/2017 Basal cell carcinoma of skin of face 09/16/2017 Overview (03/08/2023): Added automatically from request for surgery [id number] Overview: Added automatically from request for surgery [id number] Mixed hyperlipidemia 03/19/2017 Carpal tunnel syndrome of [...] [address] [place] [address] Cervical paraspinal muscle spasm 05/24/2025 11:30 AM EDT Office Visit [facility] [address] [place] [address] Jennie Barajas, GLOVE FINISHER-RETAIL AREA MANAGER BUCK (obstructive sleep apnea) (Primary Dx); Cervical paraspinal muscle spasm; Cervical radiculopathy 05/24/2025 Telephone [facility] [address] [place] [address] Gauri Jay MA TENS 05/24/2025 Bamboo flowsheet [facility] [address] [place] [address] Jennie Barajas, GLOVE FINISHER-RETAIL AREA MANAGER 05/24/2025 Travel 05/23/2025 Telephone [facility] [address] [facility] [address] [place] [address] Nash Block MD 04/20/2025 12:45 PM EDT Office Visit [facility] [address] [place] [address] Robbin Wasserman, DPM MRSA (methicillin [...] Bamboo flowsheet [facility] [address] [place] [address] Robbin Wasserman DPM 04/20/2025 Travel 04/19/2025 Travel 04/12/2025 Results Follow-Up [facility] [address] [place] [address] Robbin Wasserman DPM MRI FOOT RIGHT W WO CONTRAST 04/12/2025 Clinisync Result Encounter [facility] External Department Unsolicited Robbin Wasserman DPM 04/11/2025 Telephone [facility] [address] [place] [address] Robbin Wasserman DPM 04/11/2025 Clinisync Result Encounter [facility] External Department Unsolicited Robbin Wasserman DPM 04/06/2025 5:10 PM EDT Ancillary Procedure [facility] [address] [place] [address] 04/06/2025 4:30 PM EDT [facility] [address] [place] [address] Robbin Wasserman DPM Right foot pain (Primary Dx); Skin ulcer of toe of right foot with fat layer exposed (HCC); Infection of toe; Idiopathic progressive polyneuropathy; Generalized edema 04/06/2025 Bamboo flowsheet [facility] [address] [place] [address] Robbin Wasserman DPM 04/06/2025 Travel from Last [...] Neurology [address] [place] [address] Jennie Barajas APRN-[facility] [address] [facility] [place] [address] Procedures Procedure Name Priority Date/Time Associated Diagnosis [...] SIGNED BY: Gregorio Davila DO Jennie Barajas GLOVE FINISHER-RETAIL AREA MANAGER IMG XR PROCEDURES Lou l Result [...] Mcarthur MD 04/12/25 Final result Robbin Wasserman [facility] Final Result * (ABNORMAL) [...] Final Result from Last 3 Months Insurance [facility] Care Teams Superintendent Container Terminal Relationship Specialty Start Date End Date Back, MD Alcides [address] [place] [address] PCP - General Family Medicine 12/08/24
--- OUTSIDE RECORDS SUMMARY | 2025-06-28 10:49 | XMS_ITS | Encounter Summary ---
Author Organization [facility] Address [address] [place] [address] Care Team Providers Care Directional Driller Name Role Phone Felipe Adam MD Primary Care Provider [phone] Encounter Details Date Type Department Care Team (Late st Contact Info) Description 05/01/2015 Abstract [facility] [address] [place] [address] Hali Gallegos MA Social History Tobacco Use [...] Description 10/12/2025 10:30 AM EST Office Visit [facility] [address] [facility] [place] [address] Dimas Adair MD [facility] [address] [place] [address] documented as of this encounter Visit Diagnoses Not on filedocumented in this encounter Care Teams Directional Driller Relationship Specialty Start Date End Date Back, MD Felipe [address] [place] [phone] PCP - General Internal Medicine 03/26/15 documented as of this encounter
--- OUTSIDE RECORDS SUMMARY | 2025-06-28 10:58 | XMS_ITS | CCD ---
Author Organization [facility] Care Team Providers Care Nursing Technician Name Role Phone Back, Felipe Unavailable Unavailable [...] Primary Care Provider Unavailabl e Back , Eflipe Primary Care Provider Back , Felipe Primary Care Provider Back , Felipe Primary Care Provider BACK, FELIPE Primary Care Unavailable MUTNAL, AMAR Admitting Unavailable MUTNAL, AMAR Attending Unavailable Back , Felipe Primary Care Provider [phone] NON STAFF Primary Care Provider UnavailMD Tiffanie Mixon. Attending Provider Back , Felipe Primary Care Provider [phone] YOON COBB Referring Unavailable BACK, FELIPE Primary Care Unavailable Back , Felipe Primary Care Provider [phone] [place] Attending Unavail able BACK, FELIPE Primary Care Unavailable Back , Felipe Primary Care Provider FRANCES HARRIS Admitting Unavailable FRANCES HARRIS Attending Unavailable FRANCES HARRIS Consulting Unavailable FRANCES HARRIS Admitting Unavailable FRANCES HARRIS Attending Unavailable [facility], DR PIPER Ackerman Consulting Unavailable FRANCES HARRIS Consulting Unavailable FRANCES HARRIS Admitting Unavailable FRANCES HARRIS Attending Unavailable [facility], DR EMILY Riojas Consulting Unavailable FRANCES HARRIS Consulting Unavailable Back , Felipe Primary Care Provider [phone] BACK, FELIPE Primary Care Unavailable ROBBIN SHOOK II Attending Un available Back , Felipe Primary Care Provider INDER Harris Attending Provider [phone] Frances Harris Attending Unavailable Frances Harris Admitting Unavailable Unavailable Primary Care Provider Unavailabl e BACK FELIPE Referring Unavailable BACK, FELIPE Primary Care Unavailable BACK, FELIPE Admitting Unavailable SHERMAN ADAIR Attending Unavailable Back , [facility] Primary Care Provider FOZIA MENG Attending Unavailable [...] sources) Chlorhexidine; Translations: [CHLORHEXIDINE] Drug Allergy 3 [facility] (11 sources) topiramate; Translations: [TOPIRAMATE] Drug Allergy 4 Other (See Comments) [facility] (20 sources) Topiramate Propensity to adverse reactions 4 [facility] (1 source) Chlorhexidine; Translations: [Chlorhexidine Gluconate] Drug Allergy [facility] Repository Medications Current Medications Medication Drug [...] Start: 08-07-2022 take 1 capsule by mo [facility] once daily as needed for [...] oral tablet (1 source) alpha-Adrenergic Agonist, Uncompetitive R-lfjvsw-I-aspartate Receptor Antagonist, Sigma-1 Agonist Start: End: take 1 tablet by mouth every six hours as needed Nxaxjuophnacmxd-OO-KN (CAPMIST DM) 60-15-400 MG TABS Take 1 [...] of 38.0 to 38.9 in adult ([facility]) Take 1 tablet by [...] of 40.0 to 44.9 in adult ([facility]) Take 1 capsule by [...] Start: 08-25-2018 take 1 capsule by mo [facility] three times daily pregabalin (LYRICA) 150 MG capsule Indications: Epidural abscess , Discitis of thoracic region , Infection of thoracic spine ([facility]) , Peripheral polyneuropathy Take [...] Start: 07-30-2020 take 2 tablets by mo [facility] once daily sertraline (ZOLOFT) 100 MG tablet Take 2 tablets by mouth daily Currently decreasing this medication 07/30/2020 Active Start: 07-30-2020 [facility] sertraline (ZOLOFT) 100 MG tablet Take 100 mg by mouth daily Currently decreasing this medication 0 07/30/2020 Active Start: 07-06-2019 take 2 tablets by mo [facility] once daily sertraline (ZOLOFT) 50 MG [...] of skin] Onset: 02-05-2018 08-03-2017 Episodic 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 infection and poliomyelitis (20 sources) Extradural and [...] [Mass/Vol] 52.4 mg/dL 28.0 - 217.0 mg/dL [facility] Comment on above: Reference range defi radha for 1st morning urine Creatinine,Random Uron 06-12 Creatinine [Mass/Vol] 52.4 mg/dL Normal 28.0-217.0 [facility] Comment on above: Result Comment: Refe rence range defined for 1st morning urine Performed By: #### U RTP, URCRE, PTHNCA, VD25 ####[employer] [address] [place], [place] [phone] Lab Director: Placido Pierce MD#### RENP ####[facility] Iul[address] [place], [place] [phone] Lab Director: Emily George MD No Panel Informationon 06-12 [facility] PTH, Intacton 06-12-2025 Parathyrin.intact [Mass/Vol] 40.0 pg/mL 17.9 - 58.6 pg/mL [facility] PTH, Intact 40.0 pg/mL Normal 17.9-58.6 [facility] Comment on above: Performed By: #### U RTP, URCRE, PTHNCA, VD25 ####[facility] [address] [place], [place] [phone] Lab Director: Placido Pierce MD#### RENP ####[facility] Ceg5604 [place], [place] [phone] lab Director: Emily George MD Protein, urine, randomon Protein (U) [Mass/Vol] mg/dL mg/dL [facility] Comment on above: No normal range esta blished. Protein,Tot,[place] Uron 2024 Tot Prot. Conc. <4 Normal [facility] Comment on above: Result Comment: No n ormal range established. Performed By: #### U RTP, URCRE, PTHNCA, VD25 ####[facility] [address] [place], [place] [phone] lab Director: Placido Pierce MD#### RENP ####[facility] Amu[address] [place], [place] [phone] lab Director: Emily George MD Renal Function Panelon 06-12 Albumin [Mass/Vol] 4.2 g/dL 3.5 - 5.2 g/dL [facility] Anion gap [Moles/Vol] 12 mmol/L 9 - 17 mmol/L [facility] Calcium [Mass/Vol] 9.2 mg/dL 8.6 - 10. 4 mg/dL [facility] Chloride [Moles/Vol] 99 mmol/L 98 - 10 7 mmol/L [facility] CO2 [Moles/Vol] 24 mmol/L 20 - 31 mmol/L [facility] Creatinine [Mass/Vol] 1.3 mg/dL High 0.5 - 0.9 mg/dL [facility] Est, Glom Filt Rate 51 Low - PINF [facility] Comment on above: These results [...] 110 mg/dL High 70 - 99 mg/dL [facility] Interpretation and review of laboratory results Abnormal [facility] Phosphate [Mass/Vol] 3.9 mg/dL 2.6 - 4 .5 mg/dL [facility] Potassium [Moles/Vol] 4.5 mmol/L 3.7 - 5.3 mmol/L [facility] Sodium [Moles/Vol] 135 mmol/L 135 - 144 mmol/L [facility] Urea nitrogen [Mass/Vol] 23 mg/dL High 6 - 20 mg/dL [facility] Albumin [Mass/Vol] 4.2 g/dL Normal 3.5-5.2 [facility] Comment on above: Performed By: #### U RTP, URCRE, PTHNCA, VD25 ####[facility] [address] [place] [address] Lab Director: Placido Pierce MD#### RENP ####[facility] Hbc7347 [place] [address] Lab Director: Emily George MD Anion gap [Moles/Vol] 12 mmol/L Normal 9-17 [facility] Comment on above: Performed By: #### U RTP, URCRE, PTHNCA, VD25 ####[facility] [address] [place], [place] [phone] Lab Director: Placido Pierce MD#### RENP ####[facility] [address] [place] [address] Lab Director: Emily George MD Calcium [Mass/Vol] 9.2 mg/dL Normal 8.6-10.4 [facility] Comment on above: Performed By: #### U RTP, URCRE, PTHNCA, VD25 ####[facility] [address] [place], [place] [phone] Lab Director: Placido Pierce MD#### RENP ####[facility] Hku9672 [place] [address] Lab Director: Emily George MD Chloride [Moles/Vol] 99 mmol/L Normal 98-107 [facility] Comment on above: Performed By: #### U RTP, URCRE, PTHNCA, VD25 ####[facility] [address] [place], [place] [address])[phone] Director: Placido Pierce MD#### RENP ####[facility] Nqf0787 [place] [address]([facility])[phone] Director: Emily George MD CO2 [Moles/Vol] 24 mmol/L Normal 20-31 [facility] Comment on above: Performed By: #### U RTP, URCRE, PTHNCA, VD25 ####[address] [place] [address] Lab Director: Placido Pierce MD#### RENP ####[facility] Uzf8404 [place] [address] Lab Director: Emily George MD Creatinine [Mass/Vol] 1.3 mg/dL High 0.5-0.9 [facility] Comment on above: Performed By: #### U RTP, URCRE, PTHNCA, VD25 ####[address] [address] Lab Director: Placido Pierce MD#### RENP ####[facility] [address] [place] [phone] Lab Director: Emily George MD GFR/1.73 sq M.predicted among non-blacks MDRD (S/P/Bld) [Vol rate/Area] 51 mL/min/{1.73_m2} Low >60 [facility] Comment on above: Result Comment: [...] By: #### U RTP, URCRE, PTHNCA, VD25 ####[facility] [address] [place] [address] Lab Director: Placido Pierce MD#### RENP ####[facility] Rlg4623 [place], [place] [address])[phone] Director: Emily Georeg MD Glucose [Mass/Vol] 110 mg/dL High 70-99 [facility] Comment on above: Performed By: #### U RTP, URCRE, PTHNCA, VD25 ####[address] [address])[phone] Director: Placido Pierce MD#### RENP ####[facility] Zzi58[address] [place], [place] [address])[phone] Director: Emily George MD Phosphorus, Inorg. 3.9 mg/dL Normal 2.6-4.5 [facility] Comment on above: Performed By: #### U RTP, URCRE, PTHNCA, VD25 ####[facility] [address] [place] [address] Lab Director: Placido Pierce MD#### RENP ####[facility] Hml6003 [place], [place] [address])[phone] Director: Emily George MD Potassium [Moles/Vol] 4.5 mmol/L Normal 3.7-5.3 [facility] Comment on above: Performed By: #### U RTP, URCRE, PTHNCA, VD25 ####[facility] [address] [place] [address] lab Director: Placido Pierce MD#### RENP ####[facility] [address] [place] [address] lab Director: Emily George MD Sodium [Moles/Vol] 135 mmol/L Normal 135-144 [facility] Comment on above: Performed By: #### U RTP, URCRE, PTHNCA, VD25 ####[facility] [address] [place] [address] lab Director: Placido Pierce MD#### RENP ####[facility] [address] [place], [place] [phone] lab Director: Emily George MD Urea nitrogen [Mass/Vol] 23 mg/dL High 6-20 [facility] Comment on above: Performed By: #### U RTP, URCRE, PTHNCA, VD25 ####[address] [address] lab Director: Placido Pierce MD#### RENP ####[facility] Jfw3793 [place] [address] lab Director: Emily George MD Vitamin D 25 Hydroxyon 06-12 25-hydroxyvitamin D3 [Mass/Vol] 29.2 ng/mL Low 30.0 - 100.0 ng/mL [facility] Comment on above: Reference Range: Vitamin D status Range Deficiency <20 ng/mL Mild Deficiency 20-30 ng/mL Sufficiency 30-100 ng/mL Toxicity >100 ng/mL Interpretation and review of laboratory results Abnormal [facility] Vitamin D 25 OHon 06-12-2025 Vitamin D 25 [place] 29.2 ng/mL Low 30.0-100.0 [facility] Comment on above: Result Comment: Reference Range: Vitamin D status Range Deficiency <20 ng/mL Mild Deficiency 20-30 ng/mL Sufficiency 30-100 ng/mL Toxicity >100 ng/mL Performed By: #### U RTP, URCRE, PTHNCA, VD25 ####[facility] [address] [place] [address] Lab Director: Placido Pierce MD#### RENP ####[facility] [address] [place], [place] [phone] lab Director: Emily George MD XR CERVICAL [...] 12 mmol/L 9 - 17 mmol/L [facility] [employer] Calcium [Mass/Vol] 9.3 mg/dL 8.6 - 10. 4 mg/dL [facility] Chloride [Moles/Vol] 104 mmol/L 98 - 10 7 mmol/L [facility] CO2 [Moles/Vol] 22 mmol/L 20 - 31 mmol/L [facility] [employer] [facility] Creatinine [Mass/Vol] 1.3 mg/dL High 0.5 - 0.9 mg/dL [facility] Est, Glom Filt Rate 52 Low - PINF [facility] Comment on above: These results [...] 131 mg/dL High 70 - 99 mg/dL [facility] Potassium [Moles/Vol] 4.4 mmol/L 3.7 - 5.3 mmol/L [facility] Sodium [Moles/Vol] 138 mmol/L 135 - 144 mmol/L [facility] Urea nitrogen [Mass/Vol] 17 mg/dL 6 - 20 mg/dL [facility] Basic Metabolic Profon 05-15 Anion gap [Moles/Vol] 12 mmol/L Normal 9-17 [facility] Comment on above: Performed By: #### S ED, MORPHX, CRP, BMP, CBC ####[facility] Ktd2987 [place], [place] [phone] lab Director: Emily George MD Calcium [Mass/Vol] 9.3 mg/dL Normal 8.6-10.4 [facility] Comment on above: Performed By: #### S ED, MORPHX, CRP, BMP, CBC ####[facility] [address] [place] [address] lab Director: Emily George MD Chloride [Moles/Vol] 104 mmol/L Normal 98-107 [facility] Comment on above: Performed By: #### S ED, MORPHX, CRP, BMP, CBC ####[facility] [address] RdJama[facility] Plain [place] [address] lab Director: Emily George MD CO2 [Moles/Vol] 22 mmol/L Normal 20-31 [facility] Comment on above: Performed By: #### S ED, MORPHX, CRP, BMP, CBC ####[facility] [address] [place] [address] lab Director: Emily George MD Creatinine [Mass/Vol] 1.3 mg/dL High 0.5-0.9 [facility] Comment on above: Performed By: #### S ED, MORPHX, CRP, BMP, CBC ####[facility] Qrd0243 [place] [address] lab Director: Emily George MD GFR/1.73 sq M.predicted among non-blacks MDRD (S/P/Bld) [Vol rate/Area] 52 mL/min/{1.73_m2} Low >60 [facility] Comment on above: Result Comment: [...] #### S ED, MORPHX, CRP, BMP, CBC ####[facility] Vjb8141 [place] [address] lab Director: Emily George MD Glucose [Mass/Vol] 131 mg/dL High 70-99 [facility] Comment on above: Performed By: #### S ED, MORPHX, CRP, BMP, CBC ####[facility] Omy8285 [place] [address] lab Director: Emily George MD Potassium [Moles/Vol] 4.4 mmol/L Normal 3.7-5.3 [facility] Comment on above: Performed By: #### S ED, MORPHX, CRP, BMP, CBC ####[facility] Hew[address] [place] [address] lab Director: Emily George MD Sodium [Moles/Vol] 138 mmol/L Normal 135-144 [facility] Comment on above: Performed By: #### S ED, MORPHX, CRP, BMP, CBC ####[facility] Hey[address]137 [place] [address] lab Director: Emily George MD Urea nitrogen [Mass/Vol] 17 mg/dL Normal 6-20 [facility] Comment on above: Performed By: #### S ED, MORPHX, CRP, BMP, CBC ####[facility] Zzk9242 [place] [address] lab Director: Emily George MD C-Reactive Proteinon CRP High sensitivity method [Mass/Vol] 6.2 mg/L High 0.0 - 5.0 mg/L [facility] CRP [Mass/Vol] 6.2 mg/L High 0.0-5.0 [facility] Comment on above: Performed By: #### S ED, MORPHX, CRP, BMP, CBC ####[facility] Iso0904 [place] [address] lab Director: Emily George MD CBCon 05-15-2025 Erythrocyte distribution width (RBC) [Ratio] 19.4 % High 12.1 - 15.2 % [facility] Hematocrit (Bld) [Volume fraction] 32.3 % Low 36.0 - 46.0 % [facility] Hemoglobin (Bld) [Mass/Vol] 9.9 g/dL Low 12.0 - 16.0 g/dL [facility] Interpretation and review of laboratory results Abnormal [facility] MCH (RBC) [Entitic mass] 28.0 pg 26.0 - 34.0 pg [facility] MCHC (RBC) [Mass/Vol] 30.7 g/dL Low 31.0 - 37.0 g/dL [facility] MCV (RBC) [Entitic vol] 91.2 fL 80.0 - 100.0 fL [facility] Platelet mean volume (Bld) [Entitic vol] 11.7 fL 6.0 - 12.0 fL [facility] Platelets (Bld) [#/Vol] 154 10*3/uL [facility] RBC (Bld) [#/Vol] 3.54 10*6/uL Low 4.00 - 5.2 0 m/uL [facility] WBC other (Bld) [#/Vol] 3.8 [facility] Erythrocyte distribution width (RBC) [Ratio] 19.4 % High 12.1-15.2 [facility] Comment on above: Performed By: #### S ED, MORPHX, CRP, BMP, CBC ####[facility] [address] [place] [address] Lab Director: Emily George MD Hematocrit (Bld) [Volume fraction] 32.3 % Low 36.0-46.0 [facility] Comment on above: Performed By: #### S ED, MORPHX, CRP, BMP, CBC ####[facility] [address] [place] [address] Lab Director: Emily George MD Hemoglobin (Bld) [Mass/Vol] 9.9 g/dL Low 12.0-16.0 [facility] Comment on above: Performed By: #### S ED, MORPHX, CRP, BMP, CBC ####[facility] [address] [place] [address] Lab Director: Emily George MD MCH (RBC) [Entitic mass] 28.0 pg Normal 26.0-34.0 [facility] Comment on above: Performed By: #### S ED, MORPHX, CRP, BMP, CBC ####[facility] Qme0450 [place] [address] Lab Director: Emily George MD MCHC (RBC) [Mass/Vol] 30.7 g/dL Low 31.0-37.0 [facility] Comment on above: Performed By: #### S ED, MORPHX, CRP, BMP, CBC ####[facility] [address] [place] [address] Lab Director: Emily George MD MCV (RBC) [Entitic vol] 91.2 fL Normal 80.0-100.0 [facility] Comment on above: Performed By: #### S ED, MORPHX, CRP, BMP, CBC ####[facility] [address] [place] [address] Lab Director: Emily George MD Platelet mean volume (Bld) [Entitic vol] 11.7 fL Normal 6.0-12.0 [facility] Comment on above: Performed By: #### S ED, MORPHX, CRP, BMP, CBC ####[facility] T[address] [place] [address] Lab Director: Emily George MD Platelets (Bld) [#/Vol] 154 10*3/uL Normal 140-450 [facility] Comment on above: Performed By: #### S ED, MORPHX, CRP, BMP, CBC ####[facility] [address] [place], [place] [phone] Director: Emily George MD RBC (Bld) [#/Vol] 3.54 10*6/uL Low 4.00-5.20 [facility] Comment on above: Performed By: #### S ED, MORPHX, CRP, BMP, CBC ####[facility] Egt[address] [place], [place] [phone] Director: Emily George MD WBC (Bld) [#/Vol] 3.8 10*3/uL Normal 3.5-11.0 [facility] Comment on above: Performed By: #### S ED, MORPHX, CRP, BMP, CBC ####[facility] [address] [place] [address] Lab Director: Emily George MD MORPHOLOGY CHECKon 5 Morphology Rehan (Bld) [Interp] MODERATE ANISOCYTOSIS [facility] Morphology Checkon 5 Morphology Rehan (Bld) [Interp] MODERATE Normal [facility] Comment on above: Result Comment: ANIS OCYTOSIS Performed By: #### S ED, MORPHX, CRP, BMP, CBC ####[facility] [address] [place], [place] [phone] Director: Emily George MD No Panel Informationon 05-15 Interpretation and review of laboratory results Abnormal [facility] Sedimentation Rateon 025 Sedimentation Rate 19 mm/Hr Normal 0-20 [facility] Comment on above: Performed By: #### S ED, MORPHX, CRP, BMP, CBC ####[facility] [address] [place] [place], [place] [phone] Director: Emily George MD ESR Photometric method (Bld) [Velocity] 19 [facility] Comp Metabolic Profon 2024 Albumin [Mass/Vol] 4.2 g/dL Normal 3.5-5.2 [facility] Comment on above: Performed By: #### L IPR, GLYHGB #### [facility] [address] [place] [address] Senior Electrical Estimator: Placido Pierce MD #### CP #### [facility] Lab [address] [place] [address] Senior Electrical Estimator: Emily George MD #### INSU #### [facility] [address] [place] [address] Senior Electrical Estimator: Placido Pierce MD [facility] [address] [place] [address] Senior Electrical Estimator: Emily George MD Albumin/Glob Ratio 1.4 Normal 1.0-2.5 [facility] Comment on above: Performed By: #### L IPR, GLYHGB #### [facility] [address] [place] [address] Senior Electrical Estimator: Placido Pierce MD #### CP #### [facility] [address] [place] [address] Senior Electrical Estimator: Emily George MD #### INSU #### [facility] [address] [place] [address] Senior Electrical Estimator: Placido Pierce MD [facility] [address] [place] [address] Senior Electrical Estimator: Emily George MD Alkaline Phos 109 U/L High 35-104 [facility] Comment on above: Performed By: #### L IPR, GLYHGB #### [facility] [address] [place] [address] Senior Electrical Estimator: Placido Pierce MD #### CP #### [facility] [address] [place] [address] Senior Electrical Estimator: Emily George MD #### INSU #### [address] [address] Senior Electrical Estimator: Placido Pierce MD [facility] [address] [place] [address] Senior Electrical Estimator: Emily George MD ALT [Catalytic activity/Vol] 23 U/L Normal 5-33 [facility] Comment on above: Performed By: #### L IPR, GLYHGB #### [address] [address] Senior Electrical Estimator: Placido Pierce MD #### CP #### [facility] [address] [place] [address] Senior Electrical Estimator: Emily George MD #### INSU #### [facility] [address] [place] [address] Senior Electrical Estimator: Placido Pierce MD [facility] [address] [place] [address] Senior Electrical Estimator: Emily George MD Anion gap [Moles/Vol] 14 mmol/L Normal 9-17 [facility] Comment on above: Performed By: #### L IPR, GLYHGB #### [facility] [address] [place] [address] Senior Electrical Estimator: Placido Pierce MD #### CP #### [facility] [address] [place] [address] Senior Electrical Estimator: Emily George MD #### INSU #### [address] [address] Senior Electrical Estimator: Placido Pierce MD [facility] [address] [place] [address] Senior Electrical Estimator: Emily George MD AST [Catalytic activity/Vol] 22 U/L Normal <32 [facility] Comment on above: Performed By: #### L IPR, GLYHGB #### [address] [address] Senior Electrical Estimator: Placido Pierce MD #### CP #### [facility] [address] [place] [address] Senior Electrical Estimator: Emily George MD #### INSU #### [address] [address] Senior Electrical Estimator: Placido Pierce MD [facility] Lab [address] [place] [address] Senior Electrical Estimator: Emily George MD Bilirubin [Mass/Vol] 0.5 mg/dL Normal 0.3-1.2 [facility] Comment on above: Performed By: #### L IPR, GLYHGB #### [address] [address] Senior Electrical Estimator: Placido Pierce MD #### CP #### [facility] [address] [place] [address] Senior Electrical Estimator: Emily George MD #### INSU #### [facility] [address] [place] [address] Senior Electrical Estimator: Placido Pierce MD [facility] [address] [place] [address] Senior Electrical Estimator: Emily George MD Calcium [Mass/Vol] 9.4 mg/dL Normal 8.6-10.4 [facility] Comment on above: Performed By: #### L IPR, GLYHGB #### [address] [address] Senior Electrical Estimator: Placido Pierce MD #### CP #### [facility] [address] [place] [address] Senior Electrical Estimator: Emily George MD #### INSU #### [address] [address] Senior Electrical Estimator: Placido Pierce MD [facility] [address] [place] [address] Senior Electrical Estimator: Emily George MD Chloride [Moles/Vol] 99 mmol/L Normal 98-107 [facility] Comment on above: Performed By: #### L IPR, GLYHGB #### [address] [address] Senior Electrical Estimator: Placido Pierce MD #### CP #### [facility] [address] [place] [address] Senior Electrical Estimator: Emily George MD #### INSU #### [address] [address] Senior Electrical Estimator: Placido Pierce MD [facility] [address] [place] [address] Senior Electrical Estimator: Emily George MD CO2 [Moles/Vol] 26 mmol/L Normal 20-31 [facility] Comment on above: Performed By: #### L IPR, GLYHGB #### [facility] [address] [place] [address] Senior Electrical Estimator: Placido Pierce MD #### CP #### [facility] [address] [place] [address] Senior Electrical Estimator: Emily George MD #### INSU #### [facility] [address] [place] [address] Senior Electrical Estimator: Placido Pierce MD [facility] [address] [place] [address] Senior Electrical Estimator: Emily George MD Creatinine [Mass/Vol] 1.4 mg/dL High 0.5-0.9 [facility] Comment on above: Performed By: #### L IPR, GLYHGB #### [facility] [address] [place] [address] Senior Electrical Estimator: Placido Pierce MD #### CP #### [facility] [address] [place] [address] Senior Electrical Estimator: Emily George MD #### INSU #### [address] [address] Senior Electrical Estimator: Placido Pierce MD [facility] [address] [place] [address] Senior Electrical Estimator: Emily George MD GFR/1.73 sq M.predicted among non-blacks MDRD (S/P/Bld) [Vol rate/Area] 47 mL/min/{1.73_m2} Low >60 [facility] Comment on above: Result Comment: [...] Performed By: #### L IPR, GLYHGB #### [facility] [address] [place] [address] Senior Electrical Estimator: Placido Pierce MD #### CP #### [facility] [address] [place] [address] Senior Electrical Estimator: Emily George MD #### INSU #### [facility] [address] [place] [address] Senior Electrical Estimator: Placido Pierce MD [facility] [address] [place] [address] Senior Electrical Estimator: Emily George MD Glucose [Mass/Vol] 114 mg/dL High 70-99 [facility] Comment on above: Performed By: #### L IPR, GLYHGB #### [address] [address] Senior Electrical Estimator: Placido Pierce MD #### CP #### [facility] [address] [place] [address] Senior Electrical Estimator: Emily George MD #### INSU #### [address] [address] Senior Electrical Estimator: Placido Pierce MD [facility] [address] [place] [address] Senior Electrical Estimator: Emily George MD Potassium [Moles/Vol] 4.1 mmol/L Normal 3.7-5.3 [facility] Comment on above: Performed By: #### L IPR, GLYHGB #### [facility] [address] [place] [address] Senior Electrical Estimator: Placido Pierce MD #### CP #### [facility] [address] [place] [address] Senior Electrical Estimator: Emily George MD #### INSU #### [address] [address] Senior Electrical Estimator: Placido Pierce MD [facility] [address] [place] [address] Senior Electrical Estimator: Emily George MD Protein [Mass/Vol] 7.2 g/dL Normal 6.4-8.3 [facility] Comment on above: Performed By: #### L IPR, GLYHGB #### [address] [address] Senior Electrical Estimator: Placido Pierce MD #### CP #### [facility] [address] [place] [address] Senior Electrical Estimator: Emily George MD #### INSU #### [address] [address] Senior Electrical Estimator: Placido Pierce MD [facility] [address] [place] [address] Senior Electrical Estimator: Emily George MD Sodium [Moles/Vol] 139 mmol/L Normal 135-144 [facility] Comment on above: Performed By: #### L IPR, GLYHGB #### [address] [address] Senior Electrical Estimator: Placido Pierce MD #### CP #### [facility] [address] [place] [address] Senior Electrical Estimator: Emily George MD #### INSU #### [address] [address] Senior Electrical Estimator: Placido Pierce MD [facility] [address] [place] [address] Senior Electrical Estimator: Emily George MD Urea nitrogen [Mass/Vol] 18 mg/dL Normal 6-20 [facility] Comment on above: Performed By: #### L IPR, GLYHGB #### [address] [place], [place] [address] Senior Electrical Estimator: Placido Pierce MD #### CP #### [facility] [address] [place], [place] [phone] Senior Electrical Estimator: Emily George MD #### INSU #### [facility] [address] [place], [place] [phone] Senior Electrical Estimator: Placido Pierce MD [facility] [address] [place], [place] [phone] Senior Electrical Estimator: Emily George MD Comprehensive Metabolic Pane [facility] 04-14-2025 Albumin [Mass/Vol] 4.2 g/dL 3.5 - 5.2 g/dL [facility] Albumin/Globulin [Mass ratio] 1.4 {ratio} 1.0 - 2.5 [facility] ALP [Catalytic activity/Vol] 109 U/L High 35 - 104 U/L [facility] ALT [Catalytic activity/Vol] 23 U/L 5 - 33 U/L [facility] Anion gap [Moles/Vol] 14 mmol/L 9 - 17 mmol/L [facility] AST [Catalytic activity/Vol] 22 U/L NINF - 32 U/L [facility] Bilirubin [Mass/Vol] 0.5 mg/dL 0.3 - 1 .2 mg/dL [facility] Calcium [Mass/Vol] 9.4 mg/dL 8.6 - 10. 4 mg/dL [facility] Chloride [Moles/Vol] 99 mmol/L 98 - 10 7 mmol/L [facility] CO2 [Moles/Vol] 26 mmol/L 20 - 31 mmol/L [facility] Creatinine [Mass/Vol] 1.4 mg/dL High 0.5 - 0.9 mg/dL [facility] Est, Glom Filt Rate 47 Low - PINF [facility] Comment on above: These results [...] 114 mg/dL High 70 - 99 mg/dL [facility] Interpretation and review of laboratory results Abnormal [facility] Potassium [Moles/Vol] 4.1 mmol/L 3.7 - 5.3 mmol/L [facility] Protein [Mass/Vol] 7.2 g/dL 6.4 - 8.3 g/dL [facility] Sodium [Moles/Vol] 139 mmol/L 135 - 144 mmol/L [facility] Urea nitrogen [Mass/Vol] 18 mg/dL 6 - 20 mg/dL [facility] Hemoglobin A1Con 04-14-2025 Average glucose Estimated from glycated hemoglobin (Bld) [Mass/Vol] 123 mg/dL [facility] Comment on above: The ADA and AACC rec ommend providing the estimated average glucose result to permit better patient understanding of their HBA1c result. HbA1c (Bld) [Mass fraction] 5.9 % 4.0 - 6.0 % [facility] Glucose [Mass/Vol] 123 mg/dL Normal [facility] Comment on above: Result Comment: The ADA and AACC recommend providing the estimated average glucose result to permit better patient understanding of their HBA1c result. Performed By: #### L IPR, GLYHGB ####[facility] [address] [place] [address] Lab Director: Placido Pierce MD#### CP ####[facility] [address] [place], [place] [phone] Lab Director: Emily George MD#### INSU ####[facility] [place] [address] Lab Director: ELISABET T[facility]resPremier [facility] [address], [place] [phone] Lab Director: Emily George MD HbA1c (Bld) [Mass fraction] 5.9 % Normal 4.0-6.0 [facility] Comment on above: Performed By: #### L IPR, GLYHGB ####[facility] [address] [place], [place] [phone] Director: Placido Pierce MD#### CP ####[facility] [address] [place], [place] [phone] Director: Emily George MD#### INSU ####[address] [place], [place] [phone] Director: Placido Pierce, [facility] B[address] [place], [place] [phone] Director: Emily George MD Insulinon 04-14-2025 Insulin 25.0 mU/L Normal [facility] Comment on above: Performed By: #### L IPR, GLYHGB ####[facility] [address] [place], [place] [phone] Director: Placido Pierce MD#### CP ####[facility] [address] [place], [place] [phone] Director: Emily George MD#### INSU ####[address] [place], [place] [phone] Director: Placido Pierce, [facility] F[address] [place], [place] [phone] Director: Emily George MD Reference Range Normal [facility] Comment on above: Result Comment: Fast in.6-24.9 30 min: 20-112 60 min: 29-88 90 min: 26-84 120 min: 22-79 Performed By: #### L IPR, GLYHGB ####[facility] [address] [place], [place] [phone] Director: Placido Pierce MD#### CP ####[facility] [address] [place] [address] Lab Director: Emily George MD#### INSU ####[facility] [place] [address] Lab Director: [facility]Det[facility] [address] [facility] [place] [address] Lab Director: Emily George MD Collection Info. FASTING Normal [facility] Comment on above: Performed By: #### L IPR, GLYHGB ####[facility] [place] [address] Lab Director: Placido Pierce MD#### CP ####[facility] [address] [place] [address] Lab Director: Emily George MD#### INSU ####[facility] [place] [address] Lab Director: Placido Pierce, [facility] [address] [place] [address] Lab Director: Emily George MD Insulin, Totalon 04-14-2025 Insulin 25.0 mU/L [facility] Insulin Comment FASTING [facility] Insulin Reference Range: [facility] Comment on above: Fastin.6-24.9 30 min: 20-112 60 min: 29-88 90 min: 26-84 120 min: 22-79 Lipid Panelon 04-14-2025 Cholesterol [Mass/Vol] 158 mg/dL 0 - 199 mg/dL [facility] Comment on above: Cholesterol Guidelines: <200 Desirable 200-240 Borderline >240 Undesirable Cholesterol in HDL [Mass/Vol] 31 mg/dL Low 40 - PINF mg/dL [facility] Comment on above: HDL Guidelines: <40 Undesirable 40-59 Borderline >59 Desirable Cholesterol in LDL [Mass/Vol] 59 mg/dL 0 - 100 mg/dL [facility] Comment on above: LDL Guidelines: <100 Desirable 100-129 Near to/above Desirable 130-159 Borderline >159 Undesirable Direct (measured) LDL and calculated LDL are not interchangeable tests. Cholesterol in VLDL [Mass/Vol] 68 mg/dL High 1 - 30 mg/dL [facility] Cholesterol.total/Chol esterol in HDL [Mass ratio] 5.1 {ratio} High [facility] - 5.0 [facility] Interpretation and review of laboratory results Abnormal [facility] Triglyceride [Mass/Vol] 341 mg/dL High NINF - 150 mg/dL [facility] Comment on above: Triglyceride Guidelines: <150 Desirable 150-199 Borderline 200-499 High >499 Very high Based on AHA Guidelines for fasting triglyceride, July 2012. Lipid Profileon 04-14-2025 Cholesterol [Mass/Vol] 158 mg/dL Normal 0-199 [facility] Comment on above: Result Comment: Cholesterol Guidelines: <200 Desirable 200-240 Borderline >240 Undesirable Performed By: #### L IPR, GLYHGB ####[facility] [address] [place] [address] Lab Director: Placido Pierce MD#### CP ####[facility] [address] [place], [place] [address])[phone] Director: Emily George MD#### INSU ####[address] [address] Lab Director: Placido Pierce [facility] [address] [place], [place] [address])[phone] Director: Emily George MD Cholesterol in HDL [Mass/Vol] 31 mg/dL Low >40 [facility] Comment on above: Result Comment: HDL Guidelines: <40 Undesirable 40-59 Borderline >59 Desirable Performed By: #### L IPR, GLYHGB ####[facility] [address] [place] [address] Lab Director: Placido Pierce MD#### CP ####[facility] [address] [place], [place] [phone] Director: Emily George MD#### INSU ####[facility] [place] [address] Lab Director: Placido Pierce, [facility] [address]ip[address] [place] [address] Lab Director: Emily George MD Cholesterol in LDL [Mass/Vol] 59 mg/dL Normal 0-100 [facility] Comment on above: Result Comment: LDL Guidelines: <100 Desirable 100-129 Near to/above Desirable 130-159 Borderline >159 Undesirable Direct (measured) LDL and calculated LDL are not interchangeable tests. Performed By: #### L IPR, GLYHGB ####[facility] [place] [address] Lab Director: Placido Pierce MD#### CP ####[facility] Wxm[address] [place] [address] Lab Director: Emily George MD#### INSU ####[facility] [place] [address] Lab Director: Placido Pierce, [facility] F[address] [place], [place] [phone] Director: Emily George MD Cholesterol in VLDL [Mass/Vol] 68 mg/dL High 1-30 [facility] Comment on above: Performed By: #### L IPR, GLYHGB ####[facility] [address] [place] [address] Lab Director: Placido Pierce MD#### CP ####[facility] [address] [place] [address] Lab Director: Emily George MD#### INSU ####[facility] [address] [place] [address] Lab Director: Placido Pierce, [facility] T[address]54 [facility] [place] [address] Lab Director: Emily George MD Cholesterol.total/Chol esterol in HDL [Mass ratio] 5.1 {ratio} High <5.0 [facility] Comment on above: Performed By: #### L IPR, GLYHGB ####[facility] [address] [place], [place] [phone] Director: Placido Pierce MD#### CP ####[facility] [address]2823 [place] [address] Lab Director: Emily George MD#### INSU ####[facility] [place], [place] [phone] Director: Placido Pierce, [facility] Ufu[address]00 [place] [address] Lab Director: Emily George MD Triglyceride [Mass/Vol] 341 mg/dL High <150 [facility] Comment on above: Result Comment: Triglyceride Guidelines: <150 Desirable 150-199 Borderline 200-499 High >499 Very high Based on AHA Guidelines for fasting triglyceride, July 2012. Performed By: #### L IPR, GLYHGB ####[facility] [address] [place] [address] Lab Director: Placido Pierce MD#### CP ####[facility] [address] [place] [address] Lab Director: Emily George MD#### INSU ####[facility] [place] [address] Lab Director: Placido Pierce, [facility] Xzj4421 [place] [address] Lab Director: Emily George MD No Panel Informationon 04-14 [facility] MR Foot - right WO [...] again superimposed infection be difficult to include. [facility] RIS CONSOLIDATED EXAM: MRI FOOT [...] atrophic change likely related to chronic neuropathy. [facility] RIS Hesham Martins MD - 04/12/2025 [...] again superimposed infection be difficult to include. [facility] MR Foot - right WO and W con trast IVOrdered By: Hesham Mcarthur on 04-12-2025 [facility] Work Phone: MRI FOOT RIGHT W WO [...] by: Hesham Mcarthur MD 04/12/25 Final result [facility] Radiology, Radiologist, MD - 04/12/2025 EXAM: [...] by: Hesham Mcarthur MD 04/12/25 Final result [facility] MRI FOOT RIGHT W WO CONTRAST EXAM: [...] Hesham Mcarthur MD 04/12/25 Final result Normal [facility] Radiology Study observation (narrative) [facility] MRI FOOT RIGHT W WO CONTRAST Ordered By: Radiologist Radiology on 04-12-2025 [facility] Work Phone: BUN & Creatinineon Creatinine [Mass/Vol] 1.3 mg/dL High 0.5 - 0.9 mg/dL [facility], Glom Filt Rate 52 Low - PINF [facility] Comment on above: These results [...] Interpretation and review of laboratory results Abnormal [facility] Urea nitrogen [Mass/Vol] 15 mg/dL 6 - 20 mg/dL [facility] BUN + Creatinineon 5 Creatinine [Mass/Vol] 1.3 mg/dL High 0.5-0.9 [facility] Comment on above: Performed By: #### B UNCRT #### [facility] [address] [place] [address] Senior Electrical Estimator: Emily George MD GFR/1.73 sq M.predicted among non-blacks MDRD (S/P/Bld) [Vol rate/Area] 52 mL/min/{1.73_m2} Low >60 [facility] Comment on above: Result Comment: [...] secretion. Performed By: #### B UNCRT #### [facility] [address] [place] [address] Senior Electrical Estimator: Emily George MD Urea nitrogen [Mass/Vol] 15 mg/dL Normal 6-20 [facility] Comment on above: Performed By: #### B UNCRT #### [facility] [address] [place] [address] Senior Electrical Estimator: Emily George MD [facility]PT BUN + CREATININEon Creatinine [Mass/Vol] 1.3 mg/dL High 0.5 - 0.9 mg/dL [facility] Interpretation and review of laboratory results Abnormal [facility] 52 Low - PINF [facility] Comment on above: These results are not [...] [Mass/Vol] 15 mg/dL 6 - 20 mg/dL [facility] Original Ordering Provider: ROBBIN [facility]NC[facility]Z [facility] MR Foot - right WO and W con trast hCay 04-11-2025 Radiology Study observation (narrative) [facility] XR Foot - right 2 [facility] Result: XRAY RIGHT FOOT: AP/OBL- No fx. Lis franc diastasis concern with deformity. DP 2 mild cortical disruption 1-2mm possible. No bone density changes [facility] Cult,Woundon 04-08-2025 Cult,Wound Specimen Description .TOE Direct [...] Trimethoprim/Sulfa <=10 SUSCEPTIBLE Vancomycin 1 SUSCEPTIBLE Susceptible [facility] Comment on above: Performed By: #### W DC ####[facility] [address] [place] [address] Lab Director: Placido Pierce, [facility] [address] [place] [address] Lab Director: Emily George MD XR Foot - right 2 [facility] Study observation (narrative) [facility] Brain Natri. Peptideon 04-04 Natriuretic peptide B (Bld) [Mass/Vol] 262 pg/mL Normal <300 [facility] Comment on above: Result Comment: An a ge-independent cutoff point of 300 pg/ml has a 98% negative predictive value excluding acute heart failure. Performed By: #### B BOND TRADER, SED, CRP #### [facility] [address] [place] [address] Senior Electrical Estimator: Emily George MD Brain Natriuretic Peptideon 04-04-2025 Natriuretic peptide B (Bld) [Mass/Vol] 262 pg/mL NINF - 300 pg/mL [facility] Comment on above: An age-independent c utoff point of 300 pg/ml has a 98% negative predictive value excluding acute heart failure. C-Reactive Proteinon 025 CRP High sensitivity method [Mass/Vol] 46.7 mg/L High 0.0 - 5.0 mg/L [facility] Interpretation and review of laboratory results Abnormal [facility] CRP [Mass/Vol] 46.7 mg/L High 0.0-5.0 [facility] Comment on above: Performed By: #### B BOND TRADER, SED, CRP #### [facility] [address] [place] [address] Senior Electrical Estimator: Emily George MD CBC with Auto Differentialon 04-04-2025 Basophils (Bld) [#/Vol] 0.02 10*3/uL [facility] Basophils/100 WBC (Bld) 0 % 0 - 2 % [facility] Eosinophils (Bld) [#/Vol] 0.07 10*3/uL [facility] Eosinophils/100 WBC (Bld) 1 % 0 - 5 % [facility] Erythrocyte distribution width (RBC) [Ratio] 18.4 % High 12.1 - 15.2 % [facility] Hematocrit (Bld) [Volume fraction] 30 % Low 36.0 - 46.0 % [facility] Hemoglobin (Bld) [Mass/Vol] 9.6 g/dL Low 12.0 - 16.0 g/dL [facility] Immature granulocytes (Bld) [#/Vol] 0.13 10*3/uL [facility] Immature granulocytes/100 WBC (Bld) 2 % 0 - 5 % [facility] Interpretation and review of laboratory results Abnormal [facility] Lymphocytes/100 WBC (Bld) 23 % 15 - 40 % [facility] Lymphocytes/100 WBC (Bld) 1.39 % [facility] MCH (RBC) [Entitic mass] 27 pg 26.0 - 34.0 pg [facility] MCHC (RBC) [Mass/Vol] 32 g/dL 31.0 - 37.0 g/dL [facility] MCV (RBC) [Entitic vol] 84.3 fL 80.0 - 100.0 fL [facility] Monocytes/100 WBC (Bld) 6 % 4 - 8 % [facility] Monocytes/100 WBC (Bld) 0.37 % [facility] Neutrophils/100 WBC (Bld) 68 % 47 - 75 % [facility] Platelet mean volume (Bld) [Entitic vol] 11.7 fL 6.0 - 12.0 fL [facility] Platelets (Bld) [#/Vol] 186 10*3/uL [facility] RBC (Bld) [#/Vol] 3.56 10*6/uL Low 4.00 - 5.2 0 m/uL [facility] [facility] Seg[facility] neutrophils/100 WBC (Bld) 4.09 % [facility] WBC other (Bld) [#/Vol] 6.1 [facility] CBC with Diffon 04-04-2025 Abs. Basophil 0.02 k/uL Normal 0.00-0.20 [facility] Comment on above: Performed By: #### C DP #### [facility] [address] [place] [address] Senior Electrical Estimator: Emily George MD Abs.Imm.Granulocyte 0.13 k/uL Normal 0.00-0.30 [facility] Comment on above: Performed By: #### C DP #### [facility] [address] [phone] Senior Electrical Estimator: Emily George MD Abs.Neutrophil (Seg) 4.09 k/uL Normal 2.5-7.0 [facility] Comment on above: Performed By: #### C DP #### [facility] [address] [phone] Senior Electrical Estimator: Emily George MD Basophils/100 WBC (Bld) 0 % Normal 0-2 [facility] Comment on above: Performed By: #### C DP #### [facility] [address] [place] [address] Senior Electrical Estimator: Emily George MD Eosinophils (Bld) [#/Vol] 0.07 10*3/uL Normal 0.00-0.40 [facility] Comment on above: Performed By: #### C DP #### [facility] [address] [phone] Senior Electrical Estimator: Emily George MD Eosinophils/100 WBC (Bld) 1 % Normal 0-5 [facility] Comment on above: Performed By: #### C DP #### [facility] [address] [place] [address] Senior Electrical Estimator: Emily George MD Erythrocyte distribution width (RBC) [Ratio] 18.4 % High 12.1-15.2 [facility] Comment on above: Performed By: #### C DP #### [facility] [address] [place] [address] Senior Electrical Estimator: Emily George MD Hematocrit (Bld) [Volume fraction] 30.0 % Low 36.0-46.0 [facility] Comment on above: Performed By: #### C DP #### [facility] [address] [phone] Senior Electrical Estimator: Emily George MD Hemoglobin (Bld) [Mass/Vol] 9.6 g/dL Low 12.0-16.0 [facility] Comment on above: Performed By: #### C DP #### [facility] [address] [place], [place] [phone] Senior Electrical Estimator: Emily George MD Immature granulocytes/100 WBC (Bld) 2 % Normal 0-5 [facility] Comment on above: Performed By: #### C DP #### [facility] [address] [phone] Senior Electrical Estimator: Emily George MD Lymphocytes (Bld) [#/Vol] 1.39 10*3/uL Normal 1.00-4.80 [facility] Comment on above: Performed By: #### C DP #### [facility] [address] [phone] Senior Electrical Estimator: Emily George MD Lymphocytes/100 WBC (Bld) 23 % Normal 15-40 [facility] Comment on above: Performed By: #### C DP #### [facility] [address] [place] [address] Senior Electrical Estimator: Emily George MD MCH (RBC) [Entitic mass] 27.0 pg Normal 26.0-34.0 [facility] Comment on above: Performed By: #### C DP #### [facility] [address] [place] [address] Senior Electrical Estimator: Emily George MD MCHC (RBC) [Mass/Vol] 32.0 g/dL Normal 31.0-37.0 [facility] Comment on above: Performed By: #### C DP #### [facility] [address] [place] [address] Senior Electrical Estimator: Emily George MD MCV (RBC) [Entitic vol] 84.3 fL Normal 80.0-100.0 [facility] Comment on above: Performed By: #### C DP #### [facility] [address] [place] [address] Senior Electrical Estimator: Emily George MD Monocytes (Bld) [#/Vol] 0.37 10*3/uL Normal 0.00-1.00 [facility] Comment on above: Performed By: #### C DP #### [facility] [address] [place] [address] Senior Electrical Estimator: Emily George MD Monocytes/100 WBC (Bld) 6 % Normal 4-8 [facility] Comment on above: Performed By: #### C DP #### [facility] [address] [place] [address] Senior Electrical Estimator: Emily George MD Neutrophil (Seg) 68 % Normal 47-75 [facility] Comment on above: Performed By: #### C DP #### [facility] [address] [place] [address] Senior Electrical Estimator: Emily George MD Platelet mean volume (Bld) [Entitic vol] 11.7 fL Normal 6.0-12.0 [facility] Comment on above: Performed By: #### C DP #### [facility] [address] [place] [address] Senior Electrical Estimator: Emily George MD Platelets (Bld) [#/Vol] 186 10*3/uL Normal 140-450 [facility] Comment on above: Performed By: #### C DP #### [facility] [address] [place] [address] Senior Electrical Estimator: Emily George MD RBC (Bld) [#/Vol] 3.56 10*6/uL Low 4.00-5.20 [facility] Comment on above: Performed By: #### C DP #### [facility] [address] [place] [address] Senior Electrical Estimator: Emily George MD WBC (Bld) [#/Vol] 6.1 10*3/uL Normal 3.5-11.0 [facility] Comment on above: Performed By: #### C DP #### [facility] [address] [place] [address] Senior Electrical Estimator: Emily George MD No Panel Informationon 04-04 No acute osseous injury. Soft tissue swelling of the left great toe on the right second toe without radiographic evidence of osteomyelitis. Postsurgical changes partially imaged on the left. [facility] EXAM: XR TOE LEFT (MIN 2 [...] blastic bony lesions. There is normal mineralization. [facility] Daksha Hannah MD - 04/04/2025 EXAM: [...] Postsurgical changes partially imaged on the left. [facility] No Panel InformationOrdered By: Daksha Hannah on 04-04-2025 [facility] Work Phone: Sedimentation Rateon 025 ESR Photometric method (Bld) [Velocity] 32 High [facility] Interpretation and review of laboratory results Abnormal [facility] Sedimentation Rate 32 mm/Hr High 0-20 [facility] Comment on above: Performed By: #### B BOND TRADER, SED, CRP #### [facility] [address] [place] [address] Senior Electrical Estimator: Emily George MD XR TOE LEFT (MIN [...] Daksha Hannah MD 04/04/25 Final result Normal [facility] XR TOE RIGHT (MIN 2 VIEWS)on [...] Daksha Hannah MD 04/04/25 Final result Normal [facility] XR Toes - left 2 [facility] Study observation (narrative) [facility] XR Toes - right 2 [facility] Radiology Study observation (narrative) [facility] BRIAN DIGITAL SCREEN BILA TERALon 02-28-2025 [...] be mailed to the patient. Performing Facility: [facility] [address] [address] Interpreted by: Micky Lauren Jr., MD Signed by: Micky Lauren Jr., MD 02/28/25 Final result Normal [facility] Comp Metabolic Profon 2024 Albumin [Mass/Vol] 3.8 g/dL Normal 3.5-5.2 [facility] Comment on above: Performed By: #### G LYHGB, LIPR, LDLDIR ####[facility] [address] [place] [address] Lab Director: Placido Pierce MD#### CP ####[facility] [address] [place], [place] [phone] Lab Director: Emily George MD Alkaline Phos 115 U/L High 35-104 [facility] Comment on above: Performed By: #### G LYHGB, LIPR, LDLDIR ####[facility] [place] [address] Lab Director: Placido Pierce MD#### CP ####[facility] [address] [place] [address] Lab Director: Emily George MD ALT [Catalytic activity/Vol] 11 U/L Normal 5-33 [facility] Comment on above: Performed By: #### G LYHGB, LIPR, LDLDIR ####[address] [place] [address] Lab Director: Placido Pierce MD#### CP ####[facility] [address] [place], [place] [phone] Lab Director: Emily George MD Anion gap [Moles/Vol] 12 mmol/L Normal 9-17 [facility] Comment on above: Performed By: #### G LYHGB, LIPR, LDLDIR ####[address] [place] [address] Lab Director: Placido Pierce MD#### CP ####[facility] [address] [place] [address] Lab Director: Emily George MD AST [Catalytic activity/Vol] 14 U/L Normal <32 [facility] Comment on above: Performed By: #### G LYHGB, LIPR, LDLDIR ####[facility] [place] [address] Lab Director: Placido Pierce MD#### CP ####[facility] [address] [place] [address] Lab Director: Emily George MD Bilirubin [Mass/Vol] 0.4 mg/dL Normal 0.3-1.2 [facility] Comment on above: Performed By: #### G LYHGB, LIPR, LDLDIR ####[address] [place] [address] Lab Director: Placido Pierce MD#### CP ####[facility] [address] [place] [address] Lab Director: Emily George MD BUN/CRE Ratio 19 Normal 9-20 [facility] Comment on above: Performed By: #### G LYHGB, LIPR, LDLDIR ####[address] [place] [address] Lab Director: Placido Pierce MD#### CP ####[facility] [address] [place], [place] [address])[phone] Director: Emily George MD Calcium [Mass/Vol] 9.3 mg/dL Normal 8.6-10.4 [facility] Comment on above: Performed By: #### G LYHGB, LIPR, LDLDIR ####[address] [address] Lab Director: Placido Pierce MD#### CP ####[facility] [address] [place] [address] Lab Director: Emily George MD Chloride [Moles/Vol] 102 mmol/L Normal 98-107 [facility] Comment on above: Performed By: #### G LYHGB, LIPR, LDLDIR ####[address] [place] [address] Lab Director: Placido Pierce MD#### CP ####[facility] [address] [place] [address] Lab Director: Emliy George MD CO2 [Moles/Vol] 25 mmol/L Normal 20-31 [facility] Comment on above: Performed By: #### G LYHGB, LIPR, LDLDIR ####[facility] [place] [address] Lab Director: Placido Pierce MD#### CP ####[facility] [address] [place] [address] Lab Director: Emily George MD Creatinine [Mass/Vol] 1.1 mg/dL High 0.5-0.9 [facility] Comment on above: Performed By: #### G LYHGB, LIPR, LDLDIR ####[address] [place] [address] Lab Director: Placido Pierce MD#### CP ####[facility] [address] [place], [place] [phone] lab Director: Emily George MD GFR/1.73 sq M.predicted among non-blacks MDRD (S/P/Bld) [Vol rate/Area] 63 mL/min/{1.73_m2} Normal >60 [facility] Comment on above: Result Comment: [...] Performed By: #### G LYHGB, LIPR, LDLDIR ####[facility] [place] [address] Lab Director: Placido Pierce MD#### CP ####[facility] [address] [place] [address] Lab Director: Emily George MD Glucose [Mass/Vol] 125 mg/dL High 70-99 [facility] Comment on above: Performed By: #### G LYHGB, LIPR, LDLDIR ####[address] [place] [address] Lab Director: Placido Pierce MD#### CP ####[facility] [address]9820 [place] [address] Lab Director: Emily George MD Potassium [Moles/Vol] 4.2 mmol/L Normal 3.7-5.3 [facility] Comment on above: Performed By: #### G LYHGB, LIPR, LDLDIR ####[address] [address] Lab Director: Placido Pierce MD#### CP ####[facility] [address] [place], [place] [address])[phone] Director: Emily George MD Protein [Mass/Vol] 7.2 g/dL Normal 6.4-8.3 [facility] Comment on above: Performed By: #### G LYHGB, LIPR, LDLDIR ####[address] [address] Lab Director: Placido Pierce MD#### CP ####[facility] [address]176 [place] [address] Lab Director: Emily George MD Sodium [Moles/Vol] 139 mmol/L Normal 135-144 [facility] Comment on above: Performed By: #### G LYHGB, LIPR, LDLDIR ####[address] [address] Lab Director: Placido Pierce MD#### CP ####[facility] [address]2636 [place] [address] Lab Director: Emily George MD Urea nitrogen [Mass/Vol] 21 mg/dL High 6-20 [facility] Comment on above: Performed By: #### G LYHGB, LIPR, LDLDIR ####[facility] [address] [place], [place] [phone] Lab Director: Placido Pierce MD#### CP ####[facility] [address] [place], [place] [phone] lab Director: Emily George MD Comprehensive Metabolic Pane [facility] 11-14-2024 Albumin [Mass/Vol] 3.8 g/dL 3.5 - 5.2 g/dL [facility] ALP [Catalytic activity/Vol] 115 U/L High 35 - 104 U/L [facility] ALT [Catalytic activity/Vol] 11 U/L 5 - 33 U/L [facility] Anion gap [Moles/Vol] 12 mmol/L 9 - 17 mmol/L [facility] AST [Catalytic activity/Vol] 14 U/L NINF - 32 U/L [facility] Bilirubin [Mass/Vol] 0.4 mg/dL 0.3 - 1 .2 mg/dL [facility] Calcium [Mass/Vol] 9.3 mg/dL 8.6 - 10. 4 mg/dL [facility] Chloride [Moles/Vol] 102 mmol/L 98 - 10 7 mmol/L [facility] CO2 [Moles/Vol] 25 mmol/L 20 - 31 mmol/L [facility] Creatinine [Mass/Vol] 1.1 mg/dL High 0.5 - 0.9 mg/dL [facility] Est, Glom Filt Rate 63 - PINF [facility] Comment on above: These results [...] 125 mg/dL High 70 - 99 mg/dL [facility] Interpretation and review of laboratory results Abnormal [facility] Potassium [Moles/Vol] 4.2 mmol/L 3.7 - 5.3 mmol/L [facility] Protein [Mass/Vol] 7.2 g/dL 6.4 - 8.3 g/dL [facility] Sodium [Moles/Vol] 139 mmol/L 135 - 144 mmol/L [facility] Urea nitrogen [Mass/Vol] 21 mg/dL High 6 - 20 mg/dL [facility] Urea nitrogen/Creatinine [Mass ratio] 19 mg/mg 9 - 20 [facility] Hemoglobin A1Con 11-14-2024 Average glucose Estimated from glycated hemoglobin (Bld) [Mass/Vol] 103 mg/dL [facility] Comment on above: The ADA and AACC rec ommend providing the estimated average glucose result to permit better patient understanding of their HBA1c result. HbA1c (Bld) [Mass fraction] 5.2 % 4.0 - 6.0 % [facility] Glucose [Mass/Vol] 103 mg/dL Normal [facility] Comment on above: Result Comment: The ADA and AACC recommend providing the estimated average glucose result to permit better patient understanding of their HBA1c result. Performed By: #### G LYHGB, LIPR, LDLDIR ####[facility] [address] [place] [phone] Lab Director: Placido Pierce MD#### CP ####[facility] [address] [facility] [place] [address] lab Director: Emily George MD HbA1c (Bld) [Mass fraction] 5.2 % Normal 4.0-6.0 [facility] Comment on above: Performed By: #### G LYHGB, LIPR, LDLDIR ####[facility] [address] [place], [place] [id number] Lab Director: Placido Pierce MD#### CP ####[facility] [address] [place] [address] lab Director: Emily George MD LDL Chol, Directon LDL Chol, Direct 94 mg/dL Normal <100 [facility] Comment on above: Performed By: #### G LYHGB, LIPR, LDLDIR ####[facility] [address] [place], [place] [phone] lab Director: Placido Pierce MD#### CP ####[facility] [address] [place] [address] lab Director: Emily George MD LDL Cholesterol, Directon Cholesterol in LDL [Mass/Vol] 94 mg/dL NINF - 100 mg/dL [facility] Lipid Panelon 11-14-2024 Cholesterol [Mass/Vol] 179 mg/dL 0 - 199 mg/dL [facility] Comment on above: Cholesterol Guidelines: <200 Desirable 200-240 Borderline >240 Undesirable Cholesterol in HDL [Mass/Vol] 31 mg/dL Low 40 - PINF mg/dL [facility] Comment on above: HDL Guidelines: <40 Undesirable 40-59 Borderline >59 Desirable Cholesterol in LDL [Mass/Vol] Can not be calculated 0 - 100 mg/dL [facility] Comment on above: LDL Guidelines: <100 Desirable 100-129 Near to/above Desirable 130-159 Borderline >159 Undesirable Direct (measured) LDL and calculated LDL are not interchangeable tests. Cholesterol in VLDL [Mass/Vol] Can not be calculated 1 - 30 mg/dL [facility] Cholesterol.total/Chol esterol in HDL [Mass ratio] 5.8 {ratio} [facility] Interpretation and review of laboratory results Abnormal [facility] Triglyceride [Mass/Vol] 407 mg/dL High NINF - 150 mg/dL [facility] Comment on above: Triglyceride Guidelines: <150 Desirable 150-199 Borderline 200-499 High >499 Very high Based on AHA Guidelines for fasting triglyceride, July 2012. [facility] [employer] Lipid Profileon 11-14-2024 Cholesterol [Mass/Vol] 179 mg/dL Normal 0-199 [facility] Comment on above: Result Comment: Cholesterol Guidelines: <200 Desirable 200-240 Borderline >240 Undesirable Performed By: #### G LYHGB, LIPR, LDLDIR ####[facility] [place], [place] [phone] Director: Placido Pierce MD#### CP ####[facility] [address] [place], [place] [phone] Director: Emily George MD Cholesterol in HDL [Mass/Vol] 31 mg/dL Low >40 [facility] Comment on above: Result Comment: HDL Guidelines: <40 Undesirable 40-59 Borderline >59 Desirable Performed By: #### G LYHGB, LIPR, LDLDIR ####[address] [place], [place] [phone])[phone] Director: Placido Pierce MD#### CP ####[facility] [address] [place], [place] [phone] Director: Emily George MD Cholesterol,LDL Can not be calculated Normal 0-100 [facility] Comment on above: Result Comment: LDL Guidelines: <100 Desirable 100-129 Near to/above Desirable 130-159 Borderline >159 Undesirable Direct (measured) LDL and calculated LDL are not interchangeable tests. Performed By: #### G LYHGB, LIPR, LDLDIR ####[address] [place], [place] [phone] Director: Placido Pierce MD#### CP ####[facility] [address] [place], [place] [phone] Director: Emily George MD Cholesterol,VLDL Can not be calculated Normal 1-30 [facility] Comment on above: Performed By: #### G LYHGB, LIPR, LDLDIR ####[facility] [place], [place] [phone])[phone] Director: Placido Pierce MD#### CP ####[facility] [address] [place] [address] Lab Director: Emily George MD Cholesterol.total/Chol esterol in HDL [Mass ratio] 5.8 {ratio} Normal [facility] Comment on above: Performed By: #### G LYHGB, LIPR, LDLDIR ####[facility] [address] [place] [address] Lab Director: Placido Pierce MD#### CP ####[facility] [address] [place] [address] Lab Director: Emily George MD Triglyceride [Mass/Vol] 407 mg/dL High <150 [facility] Comment on above: Result Comment: Triglyceride Guidelines: <150 Desirable 150-199 Borderline 200-499 High >499 Very high Based on AHA Guidelines for fasting triglyceride, July 2012. Performed By: #### G LYHGB, LIPR, LDLDIR ####[facility] [address] [place] [address] Lab Director: Placido Pierce MD#### CP ####[facility] [address] [place] [address] Lab Director: Emily George MD US THYROIDon [...] Lauren Jr., MD 09/07/24 Final result Normal [facility] US Thyroid glandon TI-RADS 5, highly suspicious subcentimeter nodule in the right lobe remains stable. (Follow if greater than or equal to 0.5 cm annually until 5 years according to ACR TI-RADS recommendations). Continued follow-up annually is recommended through 2026. [facility] EXAM: US THYROID HISTORY: Thyroid nodule [...] 1.7 x 1.3 cm. Isthmus: 0.[address] [facility] Micky Lauren Jr., MD - 09/07/2024 [...] Continued follow-up annually is recommended through 2026. [facility] US Thyroid glandOrdered By: Micky Lauren on 09-07-2024 [facility] Work Phone: US Thyroid glandon Radiology Study observation (narrative) [facility] Magn[facility] 05-10-2024 Magnesium [Mass/Vol] 2.2 mg/dL 1.6 - 2 .6 mg/dL [facility] [email or web address] [facility] No Panel Informationon 05-10 [facility] Protein / creatinine ratio, urineon 05-10-2024 Creatinine (U) [Mass/Vol] 132.0 mg/dL 28.0 - 217.0 mg/dL [facility] Protein (U) [Mass/Vol] 9 mg/dL [facility] Comment on above: No normal range esta blished. Urine Total Protein Creatinine Ratio 0.07 [facility] [email or web address] [facility] Renal Function Panelon 05-10 Albumin [Mass/Vol] 4.2 g/dL 3.5 - 5.2 g/dL [facility] Anion gap [Moles/Vol] 15 mmol/L 9 - 17 mmol/L [facility] [employer] [facility] Calcium [Mass/Vol] 9.2 mg/dL 8.6 - 10. 4 mg/dL [facility] Chloride [Moles/Vol] 101 mmol/L 98 - 10 7 mmol/L [facility] CO2 [Moles/Vol] 25 mmol/L 20 - 31 mmol/L [facility] Creatinine [Mass/Vol] 1.3 mg/dL High 0.5 - 0.9 mg/dL [facility] [employer] Est, Glom Filt Rate 52 Low - PINF [facility] Comment on above: These results are [...] 141 mg/dL High 70 - 99 mg/dL [facility] Interpretation and review of laboratory results Abnormal [facility] Phosphate [Mass/Vol] 3.8 mg/dL 2.6 - 4 .5 mg/dL [facility] Potassium [Moles/Vol] 4.0 mmol/L 3.7 - 5.3 mmol/L [facility] Sodium [Moles/Vol] 141 mmol/L 135 - 144 mmol/L [facility] Urea nitrogen [Mass/Vol] 19 mg/dL 6 - 20 mg/dL [facility] Urea nitrogen/Creatinine [Mass ratio] 15 mg/mg 9 - 20 [facility] Urinalysison 05-10-2024 Bilirubin Ql (U) Negative NEGATIVE [facility] Clarity (U) Clear Clear [facility] Color (U) Yellow Yellow [facility] Comment [facility] Glucose Test strip (U) [Mass/Vol] Negative NEGATIVE mg/dL [facility] Hemoglobin Auto test strip Ql (U) Negative NEGATIVE [facility] Interpretation and review of laboratory results Abnormal [facility] Ketones (U) [Mass/Vol] Negative NEGAT BEATRIZ mg/dL [facility] Leukocyte esterase Test strip Ql (U) Negative NEGATIVE [facility] Nitrite Ql (U) Negative NEGATIVE [facility] [facility] pH (U) 5.0 [pH] 5.0 - 8.0 [facility] Protein (U) [Mass/Vol] TRACE Abnormal NEGAT BEATRIZ mg/dL [facility] Specific gravity (U) [Rel density] 1.020 1.005 - 1.030 [facility] Urobilinogen Qn (U) Normal 0.0 - 1. 0 EU/dL [facility] Ananda 02-15-2024 L Specimen: [id number] Received: 02/16/24 Status: SOUT Req Num: [id number] Spec Type: Surgical Subm Dr: Frances Harris DPM, MS Tissues: A Soft Tissue/Surgical Margin-Other than Tumor,Mass,Lip or Becka (LT MID FOOT CH Procedures: HE/2, Gross/Micro L4 Age/ Patient Sex Location Account Attending Physician Celina Gaspar 43/F [place]ELL [id number] Frances Harris DPM, MS SPEC NUM: [id number] RECD: 02/16/24 STATUS: ARLEN SO NUM: [id number] MAYTE: 02/15/[address]: Frances Harris DPM, MS ENTERED: 02/16/24 [facility] DR: Darwin Vergara SPEC TYPE: Surgical DEPT: [...] reveal firm, yellow spongy bone matrix. Manager Core sections are submitted following decalcification in A1?A2. Clinical history: varus deformity left ankle, charcot join left ankle and foot. CPT Codes 90729 Specimen: [id number] Received: 02/16/24 Status: ARLEN Zuletapaola Num: [id number] Spec Type: Surgical Subm Dr: Frances Harris,INDER, MS Tissues: A Soft Tissue/Surgical Margin-Other than Tumor,Mass,Lip or Becka (LT MID FOOT CH Procedures: HE/2, Gross/Micro L4 Patient: Celina Gaspar [id number] (Continued) Signed (signature on file) Juan José Yu MD 02/17/24 1549 Normal [facility] Lipid Panelon 06-15-2023 Cholesterol [Mass/Vol] 174 mg/dL NINF - 200 mg/dL [facility] Comment on above: Cholesterol Guidelines: <200 Desirable 200-240 Borderline >240 Undesirable Cholesterol in HDL [Mass/Vol] 30 mg/dL Low 40 - PINF mg/dL [facility] Comment on above: HDL Guidelines: <40 Undesirable 40-59 Borderline >59 Desirable Cholesterol in LDL [Mass/Vol] 77 mg/dL 0 - 130 mg/dL [facility] Comment on above: LDL Guidelines: <100 Desirable 100-129 Near to/above Desirable 130-159 Borderline >159 Undesirable Direct (measured) LDL and calculated LDL are not interchangeable tests. Cholesterol.total/Chol esterol in HDL [Mass ratio] 5.8 {ratio} High NINF - 5 [facility] Interpretation and review of laboratory results Abnormal [facility] Triglyceride [Mass/Vol] 334 mg/dL High NINF - 150 mg/dL [facility] Comment on above: Triglyceride Guidelines: <150 Desirable 150-199 Borderline 200-499 High >499 Very high Based on AHA Guidelines for fasting triglyceride, July 2012. [facility] BUN & Creatinineon Creatinine [Mass/Vol] 1.08 mg/dL High 0.50 - 0.90 mg/dL [facility] GFR/1.73 sq M.predicted MDRD (S/P/Bld) [Vol rate/Area] - PINF [facility] Comment on above: These results are [...] mg/dL High 6 - 20 mg/dL [facility] CBC with Auto Differentialon 02-05-2023 Absolute Eos # 0.10 [place] [facility] Absolute Lymph # 1.70 [facility] Absolute Butler # 0.50 [facility] RS [facility] Basophils (Bld) [#/Vol] 0.00 10*3/uL [facility] Basophils/100 WBC (Bld) 1 % 0 - 2 % [facility] Differential Type YES [facility] Eosinophils/100 WBC (Bld) 1 % 0 - 5 % [facility] Hematocrit (Bld) [Volume fraction] 36.2 % 36 - 46 % [facility] Hemoglobin (Bld) [Mass/Vol] 12.2 g/dL 12.0 - 16.0 g/dL [facility] Interpretation and review of laboratory results Abnormal [facility] Lymphocytes/100 WBC (Bld) 23 % 15 - 40 % [facility] MCH (RBC) [Entitic mass] 28.7 pg 26 - 34 pg [facility] MCHC (RBC) [Mass/Vol] 33.7 g/dL 31 - 37 g/dL B ON [facility] MCV (RBC) [Entitic vol] 85.3 fL 80 - 100 fL [facility] Monocytes/100 WBC (Bld) 7 % 4 - 8 % [facility] Platelet distribution width (Bld) [Ratio] 18.1 % High 12.1 - 15.2 % [facility] Platelets (Bld) [#/Vol] 150 10*3/uL [facility] RBC (Bld) [#/Vol] 4.25 10*6/uL 4.0 - 5.2 m/uL [facility] Segmented neutrophils/100 WBC (Bld) 68 % 47 - 75 % [facility] Segs Absolute 5.30 [facility] WBC (Bld) [#/Vol] 7.6 10*3/uL [facility] Chlorideon 02-05-2023 Chloride [Moles/Vol] 99 mmol/L 98 - 10 7 mmol/L [facility] Glucose, Randomon 02-05-2023 Glucose [Mass/Vol] 107 mg/dL High 70 - 99 mg/dL [facility] No Panel Informationon 02-05 Interpretation and review of laboratory results Abnormal [facility] Potassiumon 02-05-2023 Potassium [Moles/Vol] 4.6 mmol/L 3.7 - 5.3 mmol/L [facility] Sodiumon 02-05-2023 Sodium [Moles/Vol] 134 mmol/L Low 135 - 144 mmol/L [facility] Wet Prep, Genitalon 02-06-20 Interpretation and review of laboratory results Abnormal [facility] Microorganism or agent identified Nom (Unsp spec) FEW WBC Abnormal [facility] Microorganism or agent identified Nom (Unsp spec) MODERATE EPITHELIAL CELLS Abnormal [facility] Microorganism or agent identified Nom (Unsp spec) MODERATE BACTERIA Abnormal [facility] Microorganism or agent identified Nom (Unsp spec) NO TRICHOMONAS SEEN [facility] Microorganism or agent identified Nom (Unsp spec) NO FUNGAL ELEMENTS SEEN [facility] Microorganism or agent identified Nom (Unsp spec) NO CLUECELL SEEN [facility] Specimen Description .VAGINA [facility] CT FOOT LT WO CONon 02-05-20 [...] by: EMILY ELY Date: 2023-02-04 20:14 Normal [facility] XR ANKLE LEFT 3+ VIEWS (ABDOULAYE DARD)on [...] on ThuJan 06, 2023 6:11:26 PM EDT [facility] Comment on above: Order Comment: [...] fragmentation of the navicular and cuneiform bones. [facility] EXAM: MRI FOOT LEFT W WO [...] osteomyelitis. No nonenhancing abscess pockets are identified. [facility] Mike Villavicencio MD - 06/25/2022 EXAM: [...] fragmentation of the navicular and cuneiform bones. [facility] Phone: Radiology Study observation (narrative) [facility] Phone: MRI FOOT LEFT W WO CONTRASTO rdered By: Mike Villavicencio on 06-25-2022 [facility] Phone: XR FOOT LEFT (2 VIEWS)on There is a linear metallic foreign body projecting between the second and third metatarsals. There is also a metallic foreign body within the lower leg. There is fragmentation of the navicular as well as of all 3 cuneiforms. The appearance is consistent with the patient's history of neuropathy. [facility] EXAM: XR FOOT LEFT (2 VIEWS) HISTORY: M79.5. The patient is a 42-year-old female. Evaluate for foreign body. COMPARISON: None. [facility] Mike Villavicencio MD - 06/25/2022 EXAM: [...] consistent with the patient's history of neuropathy. 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 Clinical follow up recommended. Subcentimeter highly suspicious nodule in the right thyroid lobe 7 mm in greatest dimension. This meets criteria for annual follow up for 5 years. It does not meet criteria for FNA. [facility] EXAM: US HEAD NECK SOFT TISSUE [...] fat without shadowing, suggestive of a lipoma. [facility] Micky Lauren Jr., MD - 05/27/2022 [...] It does not meet criteria for FNA. [facility] Work Phone: Radiology Study observation (narrative) [facility] [employer] [facility] Work Phone: US HEAD NECK SOFT TISSUE THY ROIDOrdered By: Micky Lauren on 05-27-2022 [facility] Work Phone: Rejection Notificationon Reason see below [facility] Comment on above: Result Comment: Unab le to perform testing; no specimen received. To perform testing the specimen will need to be recollected. No spec Performed By: #### R EJEC #### [facility] [address] [facility] [address] Rejected Test CXURN [facility] Comment on above: Performed By: #### R EJEC #### [facility] [address] [facility] [address] LDL Cholesterol, Directon Cholesterol in LDL [Mass/Vol] 84 mg/dL <100 [facility] CBC with Auto Differentialon 04-12-2022 Absolute Eos # 0.10 [facility] Absolute Lymph # 1.40 [facility] Absolute Butler # 0.30 [facility] RS [facility] Basophils (Bld) [#/Vol] 0.00 10*3/uL [facility] Basophils/100 WBC (Bld) 1 % 0 - 2 % [facility] Differential Type YES [facility] Eosinophils/100 WBC (Bld) 1 % 0 - 5 % [facility] Hematocrit (Bld) [Volume fraction] 35.7 % Low 36 - 46 % [facility] Hemoglobin (Bld) [Mass/Vol] 12.0 g/dL 12.0 - 16.0 g/dL [facility] Interpretation and review of laboratory results Abnormal [facility] Lymphocytes/100 WBC (Bld) 25 % 15 - 40 % [facility] MCH (RBC) [Entitic mass] 28.0 pg 26 - 34 pg [facility] MCHC (RBC) [Mass/Vol] 33.7 g/dL 31 - 37 g/dL B ON [facility] MCV (RBC) [Entitic vol] 83.3 fL 80 - 100 fL [facility] Monocytes/100 WBC (Bld) 5 % 4 - 8 % [facility] Platelet distribution width (Bld) [Ratio] 16.4 % High 12.1 - 15.2 % [facility] Platelets (Bld) [#/Vol] 168 10*3/uL [facility] RBC (Bld) [#/Vol] 4.29 10*6/uL 4.0 - 5.2 m/uL [facility] Segmented neutrophils/100 WBC (Bld) 68 % 47 - 75 % [facility] Segs Absolute 3.90 [facility] WBC (Bld) [#/Vol] 5.7 10*3/uL [facility] Comprehensive Metabolic Pane ananda 04-12-2022 Albumin [Mass/Vol] 4.2 g/dL 3.5 - 5.2 g/dL [facility] ALP (Bld) [Catalytic activity/Vol] 88 U/L 35 - 104 U/L [facility] ALT [Catalytic activity/Vol] 29 U/L 5 - 33 U/L [facility] Anion gap [Moles/Vol] 11 mmol/L 9 - 17 mmol/L [facility] AST [Catalytic activity/Vol] 27 U/L <32 [facility] Bilirubin [Mass/Vol] 0.65 mg/dL 0.30 - 1.20 mg/dL [facility] Calcium [Mass/Vol] 9.1 mg/dL 8.6 - 10. 4 mg/dL [facility] Chloride [Moles/Vol] 101 mmol/L 98 - 10 7 mmol/L [facility] CO2 [Moles/Vol] 28 mmol/L 20 - 31 mmol/L [facility] Creatinine [Mass/Vol] 1.04 mg/dL High 0.50 - 0.90 mg/dL [facility] Free PSA/Total PSA [Mass fraction] 6.8 g/dL 6.4 - 8.3 g/dL [facility] [employer] GFR >60 >60 mL/min [facility] GFR Non- 58 mL/min Low >60 [facility] GFR/1.73 sq M.predicted MDRD (S/P/Bld) [Vol rate/Area] [facility] Comment on above: Average GFR for 40-4 9 years old: 99 mL/min/1.73sq m Chronic Kidney Disease: <60 mL/min/1.73sq m Kidney failure: <15 mL/min/1.73sq m eGFR calculated using average adult body mass. Additional eGFR calculator available at: http://www.[employer]/multiple_crcl_2012.htm Glucose [Mass/Vol] 103 mg/dL High 70 - 99 mg/dL [facility] [email or web address] [facility] Interpretation and review of laboratory results Abnormal [facility] Potassium [Moles/Vol] 3.9 mmol/L 3.7 - 5.3 mmol/L [facility] Sodium [Moles/Vol] 140 mmol/L 135 - 144 mmol/L [facility] Urea nitrogen (BldV) [Mass/Vol] 13 mg/dL 6 - 20 mg/dL [facility] Urea nitrogen/Creatinine (Bld) [Mass ratio] 13 [facility] [email or web address] [facility] HIV Screenon 04-12-2022 HIV Ag/Ab Non-Reactive NONREACTIVE [facility] Comment on above: No laboratory eviden ce of HIV infection. If acute HIV infection is suspected, consider testing for HIV-1 RNA. [facility] [email or web address] [facility] Lipid Panelon 04-12-2022 Cholesterol [Mass/Vol] 184 mg/dL <200 TYE [facility] [employer] Comment on above: Cholesterol Guidelines: <200 Desirable 200-240 Borderline >240 Undesirable Cholesterol in HDL [Mass/Vol] 30 mg/dL Low >40 [facility] [employer] Comment on above: HDL Guidelines: <40 Undesirable 40-59 Borderline >59 Desirable Cholesterol.total/Chol esterol in HDL [Mass ratio] 6.1 {ratio} High <5 [facility] [employer] Interpretation and review of laboratory results Abnormal [facility] LDL Cholesterol 0 - 130 mg/dL [facility] Comment on above: Calculation not jacqueline d for Triglyceride value greater than 400 mg/dL. Direct LDL reflexed LDL Guidelines: <100 Desirable 100-129 Near to/above Desirable 130-159 Borderline >159 Undesirable Direct (measured) LDL and calculated LDL are not interchangeable tests. Triglyceride [Mass/Vol] 460 mg/dL High <150 [facility] Comment on above: Triglyceride Guidelines: <150 Desirable 150-199 Borderline 200-499 High >499 Very high Based on AHA Guidelines for fasting triglyceride, July 2012. [facility] No Panel Informationon 04-12 [facility] TSH with Reflexon 04-12-2022 TSH Qn 0.99 m[IU]/L [facility] Urinalysis with MicroscopicO rdered By: Lita Weeks on 08-01-2021 - [employer] Work Phone: Amorphous, UA NOT REPORTED None [facility] Work Phone: Bacteria, UA RARE Abnormal None [employer] Work Phone: Bilirubin Urine Negative NEGATIVE [facility] Work Phone: Casts UA NOT REPORTED /LPF [employer] Work Phone: Color, UA Yellow Yellow [employer] Work Phone: Crystals, UA NOT REPORTED None /HPF [employer] Work Phone: Epithelial Cells UA 2 TO 5 /HPF [employer] Work Phone: Glucose, Ur Negative NEGATIVE [employer] Work Phone: Interpretation and review of laboratory results Abnormal [employer] Work Phone: Ketones Ql (U) Negative NEGATIVE [employer] Work Phone: Leukocyte esterase Test strip Ql (U) Negative NEGATIVE [employer] Work Phone: Mucus, UA NOT REPORTED None [employer] Work Phone: Nitrite, Urine Negative NEGATIVE [employer] Work Phone: Other Observations UA NOT REPORTED NOT REQ. M [facility] Work Phone: pH, UA 6.[address] [facility] Work Phone: Protein, UA Negative NEGATIVE [facility] Work Phone: RBC, UA NOT REPORTED [facility] Work Phone: Renal Epithelial, UA NOT REPORTED 0 /HPF Me [facility] [employer] Work Phone: Specific [place], UA 1.020 [facility] [employer] Work Phone: Trichomonas, UA NOT REPORTED None [facility] Work Phone: Turbidity UA Clear Clear [facility] Work Phone: Urinalysis Comments [employer] Work Phone: Urine Hgb Negative NEGATIVE [facility] Work Phone: Urobilinogen, Urine Normal Normal [facility] Work Phone: WBC, UA NOT REPORTED 0 /HPF [facility] Work Phone: Yeast, UA NOT REPORTED None [facility] Work Phone: [facility] Work Phone: Urinalysis with MicroscopicO rdered By: Lita Weeks on 07-11-2021 - [employer] Phone: Amorphous, UA NOT REPORTED None [facility] Work Phone: Bacteria, UA 3+ Abnormal None [facility] Work Phone: Bilirubin Urine Negative NEGATIVE [facility] Work Phone: Casts UA NOT REPORTED /LPF [facility] Work Phone: Color, UA Yellow Yellow [facility] Work Phone: Crystals, UA NOT REPORTED None /HPF [employer] [facility] Work Phone: Epithelial Cells UA 2 TO 5 /HPF [facility] Work Phone: Glucose, Ur Negative NEGATIVE [facility] Work Phone: Interpretation and review of laboratory results Abnormal [facility] Work Phone: Ketones Ql (U) Negative NEGATIVE [facility] HospitalSpikes [facility] Work Phone: Leukocyte esterase Test strip Ql (U) 2+ Abnormal NEGATIVE [facility] Work Phone: Mucus, UA NOT REPORTED None [facility] Work Phone: Nitrite, Urine Positive Abnormal NEGATIVE [employer] Work Phone: Other Observations UA NOT REPORTED NOT REQ. M [facility] Work Phone: pH, UA 6.[address] [facility] [facility] Work Phone: Protein, UA Negative NEGATIVE [facility] Work Phone: RBC, UA NOT REPORTED [facility] Work Phone: Renal Epithelial, UA NOT REPORTED 0 /HPF Me [facility] [employer] Work Phone: Specific [place], UA 1.025 [employer] Work Phone: Trichomonas, UA NOT REPORTED None [facility] [employer] Work Phone: Turbidity UA Hazy Abnormal Clear [facility] Work Phone: Urinalysis Comments [employer] Work Phone: Urine Hgb Negative NEGATIVE [facility] Work Phone: Urobilinogen, Urine Normal Normal [facility] Work Phone: WBC, UA 20 TO 50 0 /HPF [facility] Work Phone: Yeast, UA NOT REPORTED None [facility] Work Phone: [facility] Work Phone: AlbuminOrdered By: Gregory stevens on 05-20-2021 Albumin [Mass/Vol] 4.2 g/dL 3.5 - 5.2 g/dL [employer] Phone: BUN & CreatinineOrdered By: Gregory Forbes on 05-20-2021 Creatinine [Mass/Vol] 1.18 mg/dL High 0.50 - 0.90 mg/dL [employer] Phone: GFR >60 >60 mL/min [employer] Phone: GFR Non- 50 mL/min Low >60 [employer] Phone: GFR/1.73 sq M.predicted MDRD (S/P/Bld) [Vol rate/Area] [employer] Phone: Comment on above: Average GFR for 40-4 9 years old: 99 mL/min/1.73sq m Chronic Kidney Disease: <60 mL/min/1.73sq m Kidney failure: <15 mL/min/1.73sq m eGFR calculated using average adult body mass. Additional eGFR calculator available at: http://www.[employer]/multiple_crcl_2012.htm GFR/1.73 sq M.predicted MDRD (S/P/Bld) [Vol rate/Area] NOT REPORTED [employer] Phone: Interpretation and review of laboratory results Abnormal [employer] Phone: Urea nitrogen (BldV) [Mass/Vol] 19 mg/dL 6 - 20 mg/dL [employer] Phone: CalciumOrdered By: Gregory stevens on 05-20-2021 Calcium [Mass/Vol] 9.2 mg/dL 8.6 - 10. 4 mg/dL [employer] Phone: Electrolyte PanelOrdered By: Gregory Forbes on 05-20-2021 Anion gap [Moles/Vol] 10 mmol/L 9 - 17 mmol/L [employer] Phone: Chloride [Moles/Vol] 103 mmol/L 98 - 10 7 mmol/L [employer] Phone: CO2 [Moles/Vol] 25 mmol/L 20 - 31 mmol/L [facility] Work Phone: Potassium [Moles/Vol] 4.2 mmol/L 3.7 - 5.3 mmol/L [facility] Work Phone: Sodium [Moles/Vol] 138 mmol/L 135 - 144 mmol/L [facility] Work Phone: MagnesiumOrdered By: Gregory high on 05-20-2021 Magnesium [Mass/Vol] 2.2 mg/dL 1.6 - 2 .6 mg/dL [facility] Phone: No Panel InformationOrdered By: Gregory Forbes on 05-20-2021 [facility] Work Phone: PhosphorusOrdered By: Gregory Forbes on 05-20-2021 Phosphate [Mass/Vol] 3.7 mg/dL 2.6 - 4 .5 mg/dL [facility] Work Phone: UrinalysisOrdered By: Gregory Forbes on 05-20-2021 Bilirubin Urine Negative NEGATIVE [employer] [facility] Work Phone: Color, UA YELLOW YELLOW [facility] Work Phone: Glucose, Ur Negative NEGATIVE [facility] Work Phone: Interpretation and review of laboratory results Abnormal [facility] Work Phone: Ketones Ql (U) Negative NEGATIVE [facility] Work Phone: Leukocyte esterase Test strip Ql (U) Negative NEGATIVE [facility] Work Phone: Nitrite, Urine Negative NEGATIVE [facility] Work Phone: pH, UA 5.0 [facility] [employer] Work Phone: Protein, UA TRACE Abnormal NEGATIVE [facility] [employer] Work Phone: Specific [place], UA 1.020 [facility] Work Phone: Turbidity UA CLEAR CLEAR [employer] Phone: Urinalysis Comments [employer] Phone: Urine Hgb Negative NEGATIVE [employer] Phone: Urobilinogen, Urine Normal Normal [employer] Phone: [employer] Phone: COVID-19Ordered By: Pattie smith on 01-22-2021 SARS-CoV-2 (COVID-19) RNA SHARMIN+probe Ql (Unsp spec) [employer] Phone: SARS-CoV-2 (COVID-19) RNA SHARMIN+probe Ql (Unsp spec) Not detected Not Detected [employer] Phone: Comment on above: The specimen is NEGATIVE for SARS-CoV-2, the novel coronavirus associated with COVID-19. A negative result does not rule out COVID-19. Twin SARS-CoV-2 for use on the [employer]8800 Systems is a real-time RT-PCR test intended [...] this assay. Fact sheet for Healthcare Providers: https://www.fda.gov/media/517645/download Fact sheet for Patients: https://www.fda.gov/media/010565/download METHODOLOGY: RT-PCR Source .THROAT [employer] Phone: COVID-19, PCRon 11-15-2020 SARS-CoV-2, Rapid Not Detected Not Detected [employer] Phone: Comment on above: Rapid NAAT: The [...] management decisions. Fact sheet for Healthcare Providers: https://www.[employer].gov/media/352105/download Fact sheet for Patients: https://www.[employer].gov/media/214546/download Methodology: Isothermal Nucleic Acid Amplification Source .THROAT [facility] Phone: Otheron 11-15-2020 SARS-CoV-2 [facility] Phone: CBC Auto Differentialon 09-04 Basophils (Bld) [#/Vol] 0.10 10*3/uL [place], [place] Basophils/100 WBC (Bld) 1 % 0 - 2 % [place] Differential Type YES [facility] e[place]Lee, [place] Eosinophils (Bld) [#/Vol] 0.10 10*3/uL [place] Eosinophils/100 WBC (Bld) 1 % 0 - 5 % [place] Erythrocyte distribution width (RBC) [Ratio] 16.3 % High 12.1 - 15.2 % [place] Hematocrit (Bld) [Volume fraction] 36.5 % 36 - 46 % [place] Hemoglobin (Bld) [Mass/Vol] 12.5 g/dL 12 - 16 g/dL [place] Interpretation and review of laboratory results Abnormal [place] Lymphocytes (Bld) [#/Vol] 1.90 10*3/uL [place] Lymphocytes/100 WBC (Bld) 25 % 15 - 40 % [place] MCH (RBC) [Entitic mass] 28.8 pg 26 - 34 pg [place] MCHC (RBC) [Mass/Vol] 34.3 g/dL 31 - 37 g/dL [place] MCV (RBC) [Entitic vol] 84.0 fL 80 - 100 fL [place] Monocytes (Bld) [#/Vol] 0.40 10*3/uL [place] Monocytes/100 WBC (Bld) 5 % 4 - 8 % [place] Platelet mean volume (Bld) [Entitic vol] NOT REPORTED 6 - 12 fL [place] Platelets (Bld) [#/Vol] 167 10*3/uL [place] Platelets (Bld) [#/Vol] NOT REPORTED [place] RBC (Bld) [#/Vol] 4.35 10*6/uL 4 - 5.2 m/uL [place], [place] RBC morphology finding Nom (Bld) NOT REPORTED [place] Segmented neutrophils/100 WBC (Bld) 68 % 47 - 75 % [place] Segs Absolute 5.40 [place], [place] WBC (Bld) [#/Vol] 7.8 10*3/uL [place] WBC (Bld) [#/Vol] NOT REPORTED per 100 WBC [place], [place] WBC Morphology NOT REPORTED [place] Comprehensive Metabolic Pane l w/ Reflex to MGon 09-16-2020 Albumin [Mass/Vol] 4.4 g/dL 3.5 - 5.2 g/dL [place] Albumin/Globulin [Mass ratio] NOT REPORTED [place] ALP [Catalytic activity/Vol] 117 U/L High 35 - 104 U/L [place] ALT [Catalytic activity/Vol] 41 U/L High 5 - 33 U/L [place] Anion gap [Moles/Vol] 10 mmol/L 9 - 17 mmol/L [place] AST [Catalytic activity/Vol] 39 U/L High <32 [place] Bilirubin Ql (U) 0.52 mg/dL 0.3 - 1.2 mg/dL [place], [place] Bun/Cre Ratio 11 [place], [place] Calcium [Mass/Vol] 9.0 mg/dL 8.6 - 10. 4 mg/dL [place] Chloride [Moles/Vol] 101 mmol/L 98 - 10 7 mmol/L [place] CO2 [Moles/Vol] 26 mmol/L 20 - 31 mmol/L [place] Creatinine [Mass/Vol] 1.32 mg/dL High 0.5 - 0.9 mg/dL [place], [place] GFR 54 mL/min Low >60 [place], [place] GFR Non- 44 mL/min Low >60 [place] GFR/1.73 sq M predicted among non-blacks MDRD (S/P/Bld) [Vol rate/Area] [place], [place] Comment on above: Average GFR for 40-4 9 years old: 99 mL/min/1.73sq m Chronic Kidney Disease: <60 mL/min/1.73sq m Kidney failure: <15 mL/min/1.73sq m eGFR calculated using average adult body mass. Additional eGFR calculator available at: http://www.[employer]/multiple_crcl_2012.htm GFR/1.73 sq M predicted among non-blacks MDRD (S/P/Bld) [Vol rate/Area] NOT REPORTED [place], [place] Glucose [Mass/Vol] 173 mg/dL High 70 - 99 mg/dL [place], [place] Interpretation and review of laboratory results Abnormal [place], [place] Potassium [Moles/Vol] 3.9 mmol/L 3.7 - 5.3 mmol/L [place] Protein [Mass/Vol] 7.3 g/dL 6.4 - 8.3 g/dL [place] Sodium [Moles/Vol] 137 mmol/L 135 - 144 mmol/L [place] Urea nitrogen [Mass/Vol] 15 mg/dL 6 - 20 mg/dL [place] Otheron 09-16-2020 Immature granulocytes (Bld) [#/Vol] NOT REPORTED [place] Sedimentation Rateon 020 Sed Rate 15 mm 0 - 20 mm [place] Urinalysis, reflex to micros copicon 09-16-2020 Bilirubin Urine Negative NEGATIVE [place] Color, UA YELLOW YELLOW [place], [place] Glucose, Ur Negative NEGATIVE [place] Interpretation and review of laboratory results Abnormal [place] Ketones Ql (U) Negative NEGATIVE [place], [place] Leukocyte esterase Test strip Ql (U) Negative NEGATIVE [place] Nitrite, Urine Negative NEGATIVE [place], [place] pH, UA 5.0 [place], [place] Protein (U) [Mass/Vol] TRACE Abnormal NEGATIVE [place], [place] Specific [place], UA 1.025 [place], [place] Turbidity UA CLEAR CLEAR [place] Urinalysis Comments [place] Urine Hgb Negative NEGATIVE [place] Urobilinogen, Urine Normal Normal [place], [place] C-Reactive Proteinon 020 CRP [Mass/Vol] 6 mg/L High 0 - 5 mg/L [place], [place] Interpretation and review of laboratory results Abnormal [place], [place] CBC With Auto Differentialon 08-24-2020 Basophils (Bld) [#/Vol] 0.00 10*3/uL [place], [place] Basophils/100 WBC (Bld) 1 % 0 - 2 % [place] Differential Type YES [place], [place] Eosinophils (Bld) [#/Vol] 0.10 10*3/uL [place] Eosinophils/100 WBC (Bld) 1 % 0 - 5 % [place] Erythrocyte distribution width (RBC) [Ratio] 16.2 % High 12.1 - 15.2 % [place] Hematocrit (Bld) [Volume fraction] 35.4 % Low 36 - 46 % [place] Hemoglobin (Bld) [Mass/Vol] 12.2 g/dL 12 - 16 g/dL [place] Interpretation and review of laboratory results Abnormal [place] Lymphocytes (Bld) [#/Vol] 1.60 10*3/uL [place] Lymphocytes/100 WBC (Bld) 28 % 15 - 40 % [place] MCH (RBC) [Entitic mass] 29.1 pg 26 - 34 pg [place] MCHC (RBC) [Mass/Vol] 34.5 g/dL 31 - 37 g/dL [place] MCV (RBC) [Entitic vol] 84.2 fL 80 - 100 fL [place], [place] Monocytes (Bld) [#/Vol] 0.40 10*3/uL [place], [place] Monocytes/100 WBC (Bld) 6 % 4 - 8 % [place] Platelet mean volume (Bld) [Entitic vol] NOT REPORTED 6 - 12 fL [place], [place] Platelets (Bld) [#/Vol] 160 10*3/uL [place] Platelets (Bld) [#/Vol] NOT REPORTED [place] RBC (Bld) [#/Vol] 4.20 10*6/uL 4 - 5.2 m/uL [place], [place] RBC morphology finding Nom (Bld) NOT REPORTED [place] Segmented neutrophils/100 WBC (Bld) 64 % 47 - 75 % [place] Segs Absolute 3.80 [place], [place] WBC (Bld) [#/Vol] 5.8 10*3/uL [place] WBC (Bld) [#/Vol] NOT REPORTED per 100 WBC [place], [place] WBC Morphology NOT REPORTED [place], [place] Otheron 08-24-2020 Immature granulocytes (Bld) [#/Vol] NOT REPORTED 0 % [place] Sedimentation Rateon 020 Sed Rate 10 mm 0 - 20 mm [place], [place] C-Reactive Proteinon 020 CRP [Mass/Vol] 2 mg/L 0 - 5 mg/L [place], [place] CBC With Auto Differentialon 07-24-2020 Basophils (Bld) [#/Vol] 0.10 10*3/uL [place], [place] Basophils/100 WBC (Bld) 1 % 0 - 2 % [place] Differential Type YES [place], [place] Eosinophils (Bld) [#/Vol] 0.10 10*3/uL [place] Eosinophils/100 WBC (Bld) 1 % 0 - 5 % [place] Erythrocyte distribution width (RBC) [Ratio] 16.8 % High 12.1 - 15.2 % [place] Hematocrit (Bld) [Volume fraction] 40.0 % 36 - 46 % [place] Hemoglobin (Bld) [Mass/Vol] 13.5 g/dL 12 - 16 g/dL [place] Interpretation and review of laboratory results Abnormal [place] Lymphocytes (Bld) [#/Vol] 1.70 10*3/uL [place] Lymphocytes/100 WBC (Bld) 17 % 15 - 40 % [place] MCH (RBC) [Entitic mass] 29.1 pg 26 - 34 pg [place] MCHC (RBC) [Mass/Vol] 33.8 g/dL 31 - 37 g/dL [place], [place] MCV (RBC) [Entitic vol] 86.0 fL 80 - 100 fL [place], [place] Monocytes (Bld) [#/Vol] 0.50 10*3/uL [place] Monocytes/100 WBC (Bld) 5 % 4 - 8 % [place] Platelet mean volume (Bld) [Entitic vol] NOT REPORTED 6 - 12 fL [place] Platelets (Bld) [#/Vol] NOT REPORTED [place] Platelets (Bld) [#/Vol] 208 10*3/uL [place] RBC (Bld) [#/Vol] 4.65 10*6/uL 4 - 5.2 m/uL [place], [place] RBC morphology finding Nom (Bld) NOT REPORTED [place], [place] Segmented neutrophils/100 WBC (Bld) 76 % High 47 - 75 % [place] Segs Absolute 7.70 [place], [place] WBC (Bld) [#/Vol] NOT REPORTED per 100 WBC [place] WBC (Bld) [#/Vol] 10.0 10*3/uL [place] WBC Morphology NOT REPORTED [place] Otheron 07-24-2020 Immature granulocytes (Bld) [#/Vol] NOT REPORTED 0 % [place] Sedimentation Rateon 020 Sed Rate 6 mm 0 - 20 mm [place], [place] Protein / creatinine ratio, urineon 06-07-2020 Creatinine, Ur 101.2 mg/dL 28 - 217 mg/dL [place], [place] Protein (U) [Mass/Vol] 8 mg/dL [place] Comment on above: No normal range esta blished. Urine Total Protein Creatinine Ratio 0.08 [place] Urinalysison 06-07-2020 Bilirubin Urine Negative NEGATIVE [place] Color, UA YELLOW YELLOW [place], [place] Glucose, Ur 100 mg/dL Abnormal NEGATIVE [place] Interpretation and review of laboratory results Abnormal [place] Ketones Ql (U) Negative NEGATIVE [place], [place] Leukocyte esterase Test strip Ql (U) Negative NEGATIVE [place] Nitrite, Urine Negative NEGATIVE [place], [place] pH, UA 6.0 [place] Protein (U) [Mass/Vol] Negative NEGATIVE [place] Specific [place], UA 1.020 [place], [place] Turbidity UA CLEAR CLEAR [place] Urinalysis Comments [place] Urine Hgb Negative NEGATIVE [place] Urobilinogen, Urine Normal Normal [place] Comprehensive Metabolic Pane ananda 05-25-2020 Albumin [Mass/Vol] 4.4 g/dL 3.5 - 5.2 g/dL [place] Albumin/Globulin [Mass ratio] NOT REPORTED [place] ALP [Catalytic activity/Vol] 87 U/L 35 - 104 U/L [place] ALT [Catalytic activity/Vol] 21 U/L 5 - 33 U/L [place] Anion gap [Moles/Vol] 10 mmol/L 9 - 17 mmol/L [place] AST [Catalytic activity/Vol] 22 U/L <32 [place] Bilirubin Ql (U) 0.32 mg/dL 0.3 - 1.2 mg/dL [place] Bun/Cre Ratio 18 [place], [place] Calcium [Mass/Vol] 10.1 mg/dL 8.6 - 10. 4 mg/dL [place] Chloride [Moles/Vol] 104 mmol/L 98 - 10 7 mmol/L [place] CO2 [Moles/Vol] 26 mmol/L 20 - 31 mmol/L [place] Creatinine [Mass/Vol] 1.37 mg/dL High 0.5 - 0.9 mg/dL [place], [place] GFR 52 mL/min Low >60 [place], [place] GFR Non- 43 mL/min Low >60 [place] GFR/1.73 sq M predicted among non-blacks MDRD (S/P/Bld) [Vol rate/Area] NOT REPORTED [place] GFR/1.73 sq M predicted among non-blacks MDRD (S/P/Bld) [Vol rate/Area] [place] Comment on above: Average GFR for 40-4 9 years old: 99 mL/min/1.73sq m Chronic Kidney Disease: <60 mL/min/1.73sq m Kidney failure: <15 mL/min/1.73sq m eGFR calculated using average adult body mass. Additional eGFR calculator available at: http://www.[employer]/multiple_crcl_2012.htm Glucose [Mass/Vol] 160 mg/dL High 70 - 99 mg/dL [place] Interpretation and review of laboratory results Abnormal [place] Potassium [Moles/Vol] 4.6 mmol/L 3.7 - 5.3 mmol/L [place] Protein [Mass/Vol] 7.4 g/dL 6.4 - 8.3 g/dL [place] Sodium [Moles/Vol] 140 mmol/L 135 - 144 mmol/L [place] Urea nitrogen [Mass/Vol] 24 mg/dL High 6 - 20 mg/dL [place] Hemoglobin A1Con 05-25-2020 Glucose [Mass/Vol] 123 mg/dL [place] Comment on above: The ADA and AACC rec ommend providing the estimated average glucose result to permit better patient understanding of their HBA1c result. HbA1c (Bld) [Mass fraction] 5.9 % 4 - 6 % [place] LDL Cholesterol, Directon Cholesterol in LDL [Mass/Vol] 58 mg/dL <100 [place] Lipid Panelon 05-25-2020 Cholesterol [Mass/Vol] 194 mg/dL <200 [place] Comment on above: Cholesterol Guidelines: <200 Desirable 200-240 Borderline >240 Undesirable Cholesterol in HDL [Mass/Vol] 27 mg/dL Low >40 [place] Comment on above: HDL Guidelines: <40 Undesirable 40-59 Borderline >59 Desirable Cholesterol in LDL [Mass/Vol] 0 - 130 mg/dL [place] Comment on above: Calculation not jacqueline d for Triglyceride value greater than 400 mg/dL. Direct LDL reflexed LDL Guidelines: <100 Desirable 100-129 Near to/above Desirable 130-159 Borderline >159 Undesirable Direct (measured) LDL and calculated LDL are not interchangeable tests. Cholesterol in VLDL [Mass/Vol] NOT REPORTED 1 - 30 mg/dL [place] Cholesterol.total/Chol esterol in HDL [Mass ratio] 7.2 {ratio} High <5 [place] Interpretation and review of laboratory results Abnormal [place] Triglyceride [Mass/Vol] 1112 mg/dL High <150 [place], [place] Comment on above: Triglyceride Guidelines: <150 Desirable 150-199 Borderline 200-499 High >499 Very high Based on AHA Guidelines for fasting triglyceride, July 2012. Patient Fasting?on 0 Patient Fasting? YES [facility] [place], [place] Vitamin D 25 Hydroxyon 05-25 Vit D, 25-Hydroxy 30.2 ng/mL 30 - 100 ng/mL [place], [place] Comment on above: Reference Range: Vitamin D status Range Deficiency <20 ng/mL Mild Deficiency 20-30 ng/mL Sufficiency 30-100 ng/mL Toxicity >100 ng/mL C-Reactive Proteinon 020 CRP [Mass/Vol] 6.2 mg/L High 0 - 5 mg/L [place], [place] Interpretation and review of laboratory results Abnormal [place] Hemoglobin [id number] By: Kevin delgado Edendyanharinder on 09-24-2019 Glucose [Mass/Vol] 108 mg/dL [employer] Phone: Comment on above: The ADA and AACC rec ommend providing the estimated average glucose result to permit better patient understanding of their HBA1c result. HbA1c (Bld) [Mass fraction] 5.4 % 4.8 - 5.9 % [employer] Phone: Homocysteine, SerumOrdered B y: Janel Allen on 09-24-2019 Homocysteine 9 umol/L <15.0 [employer] Phone: TSH without ReflexOrdered By : Janel Tiffany on 09-24-2019 TSH Qn 1.03 m[IU]/L [employer] Phone: Vitamin B12 & FolateOrdered By: Janel Tiffany on 09-24-2019 Cobalamin (Vitamin B12) [Mass/Vol] 292 pg/mL 232 - 1245 pg/mL [employer] Phone: Folate 13.8 ng/mL >4.8 [employer] Phone: XR CERVICAL SPINE (4-5 VIEWS )on 07-29-2019 Mild degenerative changes cervical spine not unusual for age. Refer to the [facility] Imaging services 02/03/2019 with some of the findings discussed above. [place] EXAM: XR CERVICAL SPINE (4-5 VIEWS) HISTORY: Reason for exam:->history MRSA discitis of thoracic region. New tingling and numbness of fingers COMPARISON: MRI cervical spine [facility] 02/03/2019, cervical spine series 04/03/2010. The [...] Swimmer's lateral view shows no additional abnormality. 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 New tingling and numbness of fingers COMPARISON: MRI cervical spine [facility] 02/03/2019, cervical spine series 04/03/2010. The [...] with some of the findings discussed above. [place] C-Reactive ProteinOrdered By : Azalea Knight on 07-28-2019 CRP [Mass/Vol] 6.4 mg/L High 0 - 5 mg/L [place], [place] Interpretation and review of laboratory results Abnormal [place] CBC With Auto DifferentialOr dered By: Azalea Knight on 07-28-2019 Absolute Eos # 0.10 [place], [place] Absolute Immature Granulocyte NOT REPORTED [place], [place] Absolute Lymph # 2.10 [place] Absolute [place] # 0.50 [place] Basophils (Bld) [#/Vol] 0.00 10*3/uL [place] Basophils/100 WBC (Bld) 1 % 0 - 2 % [place] Differential Type YES [place], [place] Eosinophils/100 WBC (Bld) 1 % 0 - 5 % [place] Erythrocyte distribution width (RBC) [Ratio] 14.5 % 12.1 - 15.2 % [place] Hematocrit (Bld) [Volume fraction] 38.1 % 36 - 46 % [place] Hemoglobin (Bld) [Mass/Vol] 12.9 g/dL 12 - 16 g/dL [place] Immature Granulocytes NOT REPORTED 0 % [place] Lymphocytes/100 WBC (Bld) 34 % 15 - 40 % [place] MCH (RBC) [Entitic mass] 29.5 pg 26 - 34 pg [place] MCHC (RBC) [Mass/Vol] 33.9 g/dL 31 - 37 g/dL [place] MCV (RBC) [Entitic vol] 87.1 fL 80 - 100 fL [place], [place] Monocytes/100 WBC (Bld) 8 % 4 - 8 % [place] MPV NOT REPORTED 6 - 12 fL [place], [place] NRBC Automated NOT REPORTED per 100 WBC [place], [place] Platelet Estimate NOT REPORTED [place] Platelets (Bld) [#/Vol] 222 10*3/uL [place] RBC (Bld) [#/Vol] 4.38 10*6/uL 4 - 5.2 m/uL [place], [place] RBC morphology finding Nom (Bld) NOT REPORTED [place] Segmented neutrophils/100 WBC (Bld) 56 % 47 - 75 % [place] Segs Absolute 3.50 [place], [place] WBC (Bld) [#/Vol] 6.2 10*3/uL [place] WBC Morphology NOT REPORTED [place] Sedimentation RateOrdered By : Azalea Aroramichoacano on 07-28-2019 Sed Rate 19 mm 0 - 30 mm [place] C-Reactive Proteinon 019 CRP [Mass/Vol] 7.3 mg/L High 0 - 5 mg/L [place], [place] Interpretation and review of laboratory results Abnormal [place] Albuminon 06-17-2019 Albumin [Mass/Vol] 4.3 g/dL 3.5 - 5.2 g/dL [place], KY BUN & Creatinineon 9 Creatinine [Mass/Vol] 1.27 mg/dL High 0.5 - 0.9 mg/dL [place] GFR 56 mL/min Low >60 [place], [place] GFR Non- 47 mL/min Low >60 [place] GFR/1.73 sq M predicted among non-blacks MDRD (S/P/Bld) [Vol rate/Area] NOT REPORTED [place] GFR/1.73 sq M predicted among non-blacks MDRD (S/P/Bld) [Vol rate/Area] [place], [place] Comment on above: Average GFR for 40-4 9 years old: 99 mL/min/1.73sq m Chronic Kidney Disease: <60 mL/min/1.73sq m Kidney failure: <15 mL/min/1.73sq m eGFR calculated using average adult body mass. Additional eGFR calculator available at: http://www.[employer]/multiple_crcl_2012.htm Interpretation and review of laboratory results Abnormal [place] Urea nitrogen [Mass/Vol] 18 mg/dL 6 - 20 mg/dL [place] Calciumon 06-17-2019 Calcium [Mass/Vol] 10.4 mg/dL 8.6 - 10. 4 mg/dL [place] Electrolyte Panelon 06-17-20 19 Anion gap [Moles/Vol] 13 mmol/L 9 - 17 mmol/L [place] Chloride [Moles/Vol] 103 mmol/L 98 - 10 7 mmol/L [place] CO2 [Moles/Vol] 24 mmol/L 20 - 31 mmol/L [place] Potassium [Moles/Vol] 3.8 mmol/L 3.7 - 5.3 mmol/L [place] Sodium [Moles/Vol] 140 mmol/L 135 - 144 mmol/L [place] Hemoglobin and Hematocrit, B loodon 06-17-2019 Hematocrit (Bld) [Volume fraction] 35.4 % Low 36 - 46 % [place] Hemoglobin (Bld) [Mass/Vol] 12.1 g/dL 12 - 16 g/dL [place] Interpretation and review of laboratory results Abnormal [place] Magnesiumon 06-17-2019 Magnesium [Mass/Vol] 2.3 mg/dL 1.6 - 2 .6 mg/dL [place] Microscopic Urinalysison Amorphous, UA NOT REPORTED None [place] Bacteria, UA 1+ Abnormal None [place] Casts UA NOT REPORTED /LPF [place] Crystals UA NOT REPORTED None /HPF [place], [place] Epithelial Cells UA 2 TO 5 /HPF [place] Interpretation and review of laboratory results Abnormal [place] Mucus, UA NOT REPORTED None [place] Other Observations UA NOT REPORTED NOT REQ. [place] RBC (U) [#/Vol] NOT REPORTED [place], [place] Renal Epithelial, Urine NOT REPORTED 0 /HPF [place], [place] Trichomonas, UA NOT REPORTED None [place], [place] WBC, UA 0 TO 2 0 /HPF [place] Yeast, UA NOT REPORTED None [place], [place] - [place] Phosphoruson 06-17-2019 Phosphate [Mass/Vol] 3.0 mg/dL 2.6 - 4 .5 mg/dL [place], [place] Protein / creatinine ratio, urineon 06-17-2019 Creatinine, Ur 228.2 mg/dL High 28 - 217 mg/dL [place] Interpretation and review of laboratory results Abnormal [place] Protein (U) [Mass/Vol] 18 mg/dL [place] Comment on above: No normal range esta blished. Urine Total Protein Creatinine Ratio 0.08 [place], [place] Sedimentation Rateon 019 Sed Rate 24 mm 0 - 30 mm [place] Urinalysison 06-17-2019 Bilirubin Urine Negative NEGATIVE [place] Color, UA YELLOW YELLOW [place], [place] Glucose, Ur Negative NEGATIVE [place] Interpretation and review of laboratory results Abnormal [place] Ketones Ql (U) Negative NEGATIVE [place], [place] Leukocyte esterase Test strip Ql (U) Negative NEGATIVE [place] Nitrite, Urine Negative NEGATIVE [place], [place] pH, UA 6.0 [place], [place] Protein (U) [Mass/Vol] TRACE Abnormal NEGATIVE [place] Specific [place], UA 1.025 [place], [place] Turbidity UA HAZY Abnormal CLEAR [place] Urinalysis Comments [place] Urine Hgb Negative NEGATIVE [place] Urobilinogen, Urine Normal Normal [place] MR CERVICAL SPINE WITHOUT CO NTRASTon [...] or cord edema. /cdr Workstation ID: [id number] [facility] EXAMINATION: MR CERVICAL SPINE WITHOUT CONTRAST [...] probable mild left-sided neural foraminal stenosis. [facility], Pr[facility]ad In Aric Mohanq - 02/03/2019 11:02 [...] be due to myelomalacia or cord edema. /hospital [facility] Workstation ID: [id number] [facility] MR CERVICAL SPINE WITHOUT CONTRAST EXAMINATION: [...] be due to myelomalacia or cord edema. /hospital [facility] Workstation ID: [id number] Dictated by: RONALD MCCRAY on ThuFebruary 03, 2019 10:34:16 AM EDT Transcribed by: FELICITY DE JESUS on ThuFebruary 03, 2019 10:58:51 AM EDT Finalized by: RONALD MCCRAY on ThuFebruary 03, 2019 10:59:35 AM EDT Normal [facility] Comment on above: Order Comment: [...] 48 DAYS Report Status FINAL 10/11/2018 Normal [facility] Comment on above: Performed By: #### T ROPI #### [facility] [address] [place] [address] Cult,Mycobacteria Specimen Description .SPINE .TISSUE T4 LAMINA Special Requests NOT REPORTED Direct Exam NO ACID FAST BACILLI SEEN (DIRECT SMEAR) Culture NO GROWTH 48 DAYS Report Status FINAL 10/11/2018 [facility] Comment on above: Performed By: #### L ACWB #### [facility] [address] [place] [address] Cult,Funguson 09-27-2018 Cult,Fungus Specimen Description .TISSUE EPIDURAL TISSUE Special Requests NOT REPORTED Culture NO GROWTH 34 DAYS Report Status FINAL 09/27/2018 Normal [facility] Comment on above: Performed By: #### L ACWB #### [facility] [address] [place], [place] [id number] Cult,Fungus Specimen Description .SPINE .TISSUE T4 LAMINA Special Requests NOT REPORTED Culture NO GROWTH 34 DAYS Report Status FINAL 09/27/2018 Normal [facility] Comment on above: Performed By: #### L ACWB #### [facility] [address] [place] [address] BUNon 09-23-2018 Urea nitrogen mass conc 20 mg/dL Normal 03-27 [facility] Comment on above: Performed By: #### 2 [id number] ####[facility] [address] [place] [address] Creatinineon 09-23-2018 Creatinine mass conc 1.3 mg/dL High 0.5-1.1 [facility] Comment on above: Performed By: #### 2 [id number] ####[facility] [address] [place] [address] eGFRon 09-23-2018 eGFR AA 54 mL/min/1.[address] [facility] Comment on above: Order Comment: Order added by Discern Expert. Performed By: #### 2 [id number] ####[facility] [address] [place] [address] GFR/1.73 sq M predicted among non-blacks MDRD vol rate/area (S/P/Bld) 45 mL/min/1.73 m2 [facility] Comment on above: Order Comment: Order added by Discern Expert. Performed By: #### 2 [id number] ####[facility] [address] [place] [address] Auto Diffon 09-20-2018 Basophils Auto #/vol (Bld) 0.0 E3/mcL Normal 0.0-0.2 [facility] Comment on above: Order Comment: Order Added by Discern Expert. Performed By: #### 2 [id number] ####[facility] [address] [place] [address] Basophils/100 WBC Auto (Bld) 1.1 % Normal 0.0-2.0 [facility] Comment on above: Order Comment: Order Added by Discern Expert. Performed By: #### 2 [id number] ####[facility] [address] [place] [address] Eos Absolute 0.0 E3/mcL Normal 0.0-0.7 [facility] Comment on above: Order Comment: Order Added by Discern Expert. Performed By: #### 2 [id number] ####[facility] [address] [place] [address] Eosinophils/100 WBC Auto (Bld) 0.3 % Normal 0.0-11.0 [facility] Comment on above: Order Comment: Order Added by Discern Expert. Performed By: #### 2 [id number] ####[facility] [address] [place] [address] Lymphocytes Auto #/vol (Bld) 1.2 E3/mcL Normal 1.2-3.4 [facility] Comment on above: Order Comment: Order Added by Discern Expert. Performed By: #### 2 [id number] ####[address] [address] [place] [address] Lymphocytes/100 WBC Auto (Bld) 30.6 % Normal 20.0-55.0 [facility] Comment on above: Order Comment: Order Added by Discern Expert. Performed By: #### 2 [id number] ####[facility] [address] [place] [address] [place] Absolute 0.4 E3/mcL Normal 0.0-0.7 [facility] Comment on above: Order Comment: Order Added by Discern Expert. Performed By: #### 2 [id number] ####[address] [address] [place] [address] Monocytes/100 WBC Auto (Bld) 10.2 % High 0.0-10.0 [facility] Comment on above: Order Comment: Order Added by Discern Expert. Performed By: #### 2 [id number] ####[address]IO [address] [place] [address] Neutro Absolute 2.3 E3/mcL Normal 1.4-6.5 [facility] Comment on above: Order Comment: Order Added by Discern Expert. Performed By: #### 2 [id number] ####[address] [address] [place] [address] Neutro Auto 57.8 % Normal 37.0-75.0 [facility] Comment on above: Order Comment: Order Added by Discern Expert. Performed By: #### 2 [id number] ####[facility] [address] [place] [address] CBC w/ Auto Diffon 8 Erythrocyte distribution width Auto Ratio (RBC) 19.9 % High 11.5-14.5 [facility] Comment on above: Performed By: #### 2 [id number] ####[address] [address] [place] [address] Hematocrit Auto Volume Fraction (Bld) 26.5 % Low 36.0-48.0 [facility] Comment on above: Performed By: #### 2 [id number] ####OVIDIO [address] [place] [id number] Hemoglobin mass conc (Bld) 8.7 g/dL Low 12.0-16.0 [facility] Comment on above: Performed By: #### 2 [id number] ####[address] [place] [address] MCH Auto Entitic mass (RBC) 29.6 pg Normal 27.0-31.0 [facility] Comment on above: Performed By: #### 2 [id number] ####[address]IO [address] [place] [address] MCHC Auto mass conc (RBC) 32.9 g/dL Low 33.0-37.0 [facility] Comment on above: Performed By: #### 2 [id number] ####[address] [place] [address] MCV Auto Entitic volume (RBC) 89.8 fL Normal 78.0-100.0 [facility] Comment on above: Performed By: #### 2 [id number] ####[address] [address] [place] [address] Platelet mean volume Auto Entitic volume (Bld) 10.5 fL Normal 7.4-11.0 [facility] Comment on above: Performed By: #### 2 [id number] ####OVIDIO [address] [place] [address] Platelets Auto #/vol (Bld) 117 E3/mcL Low 130-400 [facility] Comment on above: Performed By: #### 2 [id number] ####OVIDIO AvalosHioYrpk2254 [place] [address] RBC Auto #/vol (Bld) 2.95 E6/mcL Low 3.90-5.40 [facility] Comment on above: Performed By: #### 2 [id number] ####OVIDIO Valleo1025 [place] [address] WBC Auto #/vol (Bld) 4.0 E3/mcL Normal 3.6-11.0 [facility] Comment on above: Performed By: #### 2 [id number] ####OVIDIO AvalosFdnDrgj5148 [place] [address] CRPon 09-20-2018 CRP mass conc 0.83 mg/dL Normal 0.00-1.00 [facility] Comment on above: Performed By: #### 2 [id number] ####OVIDIO AvalosXmiNoru8526 [place] [address] Morphon 09-20-2018 Anisocytosis Auto Ql (Bld) 1+ Normal [facility] Comment on above: Order Comment: Order Added by Discern Expert. Performed By: #### 1 [id number] ####OVIDIO AvalosVvjDltd0161 [place] [address] Hypochromasia 1+ Normal [facility] Comment on above: Order Comment: Order Added by Discern Expert. Performed By: #### 1 [id number] ####OVIDIO AvalosWfiNdqv1698 [place] [address] RBC morphology finding Nom (Bld) SEE MORPHOLOGY Normal [facility] Comment on above: Order Comment: Order Added by Discern Expert. Performed By: #### 1 [id number] ####OVIIDO AvalosKdaDebq5796 [place] [address] Sed Rate Automatedon 018 Sed Rate Automated 15 mm/hr Normal [facility] Comment on above: Result Comment: AGE- SPECIFIC REFERENCE RANGES FOR SEDIMENTATION RATE AUTOMATED REFERENCE RANGE - MM/HR AGE MEN WOMEN 0-2 0-2 - PUBERTY 3-13 3-13 PUBERTY - 50 YRS 0-15 0-20 > 50 YRS 0-20 0-30 Performed By: #### 1 [id number] ####OVIDIO Hematology Manual [address] [place] [id number] zzplt morphon 09-20-2018 Platelet morphology finding Nom (Bld) NORMAL Normal [facility] Comment on above: Performed By: #### 9 [id number] ####OVIDIO RhfNuae8399 [place] [id number] Platelets Auto #/vol (Bld) NORMAL Normal [facility] Comment on above: Performed By: #### 9 [id number] ####OVIDIO UrjRicm2919 [place] [address] BLOOD UREA NITROGENon 2017 Urea nitrogen mass conc (Bld) 19 mg/dL Normal 7-20 [facility] Comment on above: Performed By: #### A CBC, ESR, BUN, CREAT, CREACT, FX ####Testing performed at [place] [id number] C REACTIVE PROTEINon 018 CRP mass conc 18.5 mg/L High 0-10.0 [facility] Comment on above: Performed By: #### A CBC, ESR, BUN, CREAT, CREACT, FX ####Testing performed at [address] [address] CBCon 09-13-2018 ABSOLUTE BAS 0.1 X10 Normal [facility] Comment on above: Performed By: #### A CBC, ESR, BUN, CREAT, CREACT, FX ####Testing performed at [address] [address] ABSOLUTE EOS 0.20 X10 Normal [facility] Comment on above: Performed By: #### A CBC, ESR, BUN, CREAT, CREACT, FX ####Testing performed at [facility] [address] [place] [address] ABSOLUTE NEUTROPHIL COUNT 2.5 x10 Normal 1.0-7.0 [facility] Comment on above: Performed By: #### A CBC, ESR, BUN, CREAT, CREACT, FX ####Testing performed at [address] [address] Basophils/100 WBC Auto (Bld) 1.4 % Normal 0.0-2.0 [facility] Comment on above: Performed By: #### A CBC, ESR, BUN, CREAT, CREACT, FX ####Testing performed at [address] [address] DTYPE AUTO DIFF Normal [facility] Comment on above: Performed By: #### A CBC, ESR, BUN, CREAT, CREACT, FX ####Testing performed at [address] [address] Eosinophils/100 WBC Auto (Bld) 3.5 % Normal 0.0-11.0 [facility] Comment on above: Performed By: #### A CBC, ESR, BUN, CREAT, CREACT, FX ####Testing performed at [address] [address] Lymphocytes Auto #/vol (Bld) 1.10 X10 Normal [facility] Comment on above: Performed By: #### A CBC, ESR, BUN, CREAT, CREACT, FX ####Testing performed at [address] [address] Lymphocytes/100 WBC Auto (Bld) 27.0 % Normal 20.0-55.0 [facility] Comment on above: Performed By: #### A CBC, ESR, BUN, CREAT, CREACT, FX ####Testing performed at [address] [address] Monocytes Auto #/vol (Bld) 0.4 X10 Normal [facility] Comment on above: Performed By: #### A CBC, ESR, BUN, CREAT, CREACT, FX ####Testing performed at [address] [address] Monocytes/100 WBC Auto (Bld) 9.4 % Normal 0.0-10.0 [facility] Comment on above: Performed By: #### A CBC, ESR, BUN, CREAT, CREACT, FX ####[place] [id number] Neutrophils/100 WBC Auto (Bld) 58.7 % Normal 37.0-75.0 [facility] Comment on above: Performed By: #### A CBC, ESR, BUN, CREAT, CREACT, FX ####[place] [id number] Erythrocyte distribution width Auto Ratio (RBC) 17.6 % High 11.5-14.5 [facility] Comment on above: Performed By: #### A CBC, ESR, BUN, CREAT, CREACT, FX ####[place] [id number] Hematocrit Auto Volume Fraction (Bld) 26.2 % Low 36.0-48.0 [facility] Comment on above: Performed By: #### A CBC, ESR, BUN, CREAT, CREACT, FX ####[place] [id number] Hemoglobin mass conc (Bld) 8.8 g/dL Low 12.0-16.0 [facility] Comment on above: Performed By: #### A CBC, ESR, BUN, CREAT, CREACT, FX ####[place] [id number] MCH Auto Entitic mass (RBC) 29.3 pg Normal 26.0-35.0 [facility] Comment on above: Performed By: #### A CBC, ESR, BUN, CREAT, CREACT, FX ####[place] [id number] MCHC Auto mass conc (RBC) 33.7 g/dL Normal 27.0-37.0 [facility] Comment on above: Performed By: #### A CBC, ESR, BUN, CREAT, CREACT, FX ####[place] [id number] MCV Auto Entitic volume (RBC) 86.9 fL Normal 80.0-100.0 [facility] Comment on above: Performed By: #### A CBC, ESR, BUN, CREAT, CREACT, FX ####[place] [id number] Platelet mean volume Auto Entitic volume (Bld) 10.1 fL Normal 7.4-11.0 [facility] Comment on above: Performed By: #### A CBC, ESR, BUN, CREAT, CREACT, FX ####[place] [id number] Platelets Auto #/vol (Bld) 130 /cmm Normal 130.0-400.0 [facility] Comment on above: Performed By: #### A CBC, ESR, BUN, CREAT, CREACT, FX ####[place] [id number] RBC Auto #/vol (Bld) 3.01 /cmm Low 4.0-5.4 [facility] Comment on above: Performed By: #### A CBC, ESR, BUN, CREAT, CREACT, FX ####[place] [id number] WBC Auto #/vol (Bld) 4.2 /cmm Normal 3.6-11.0 [facility] Comment on above: Performed By: #### A CBC, ESR, BUN, CREAT, CREACT, FX ####[place] [id number] CREATININE,SERUMon 8 Creatinine mass conc 1.5 mg/dL High 0.52-1.04 [facility] Comment on above: Performed By: #### A CBC, ESR, BUN, CREAT, CREACT, FX ####[place] [id number] EST. GFR, 50 ml/min/1.73sq.m Normal [facility] Comment on above: Performed By: #### A CBC, ESR, BUN, CREAT, CREACT, FX ####[place] [id number] EST. GFR,Non 41 ml/min/1.73sq.m [facility] Comment on above: Performed By: #### A CBC, ESR, BUN, CREAT, CREACT, FX ####[place] [id number] GFR/1.73 sq M predicted among non-blacks MDRD vol rate/area (S/P/Bld) Average GFR for 30-39 years old = 109. [facility] Comment on above: Result Comment: [employer] Shop Attendant vasu Kidney disease, GFR = <60.Kidney failure, GFR = <15.The GFR estimate is not adjusted for extreme body surface area or acute process, nor has it been validated for women or ethnic groups other than and . Performed By: #### A CBC, ESR, BUN, CREAT, CREACT, FX ####[place] [id number] ESRon 09-13-2018 ESR Velocity (Bld) 49 mm/h High 0-15 [facility] Comment on above: Performed By: #### A CBC, ESR, BUN, CREAT, CREACT, FX ####Testing performed at [place] [id number] FAX REQUESTon 09-13-2018 FAX TO FAX TO DR HARTMAN AT [phone] [facility] AT [phone] [facility] Comment on above: Performed By: #### P HY, BUN, CREAT, FX ####Testing performed at [address] [address] FAX REQUESTon 09-06-2018 FAX TO [phone] [facility] Comment on above: Performed By: #### F X ####Testing performed at [place] [id number] BLOOD UREA NITROGENon 2017 Urea nitrogen mass conc (Bld) 21 mg/dL High 7-20 [facility] Comment on above: Performed By: #### P HY, BUN, CREAT, FX ####Testing performed at [place] [id number] CREATININE,SERUMon 8 Creatinine mass conc 1.4 mg/dL High 0.52-1.04 [facility] Comment on above: Performed By: #### P HY, BUN, CREAT, FX ####Testing performed at [place] [id number] EST. GFR, 54 ml/min/1.73sq.m [facility] Comment on above: Performed By: #### P HY, BUN, CREAT, FX ####Testing performed at [place] [id number] EST. GFR,Non 44 ml/min/1.73sq.m [facility] Comment on above: Performed By: #### P HY, BUN, CREAT, FX ####[place] [id number] GFR/1.73 sq M predicted among non-blacks MDRD vol rate/area (S/P/Bld) Average GFR for 30-39 years old = 109. [facility] Comment on above: Result Comment: [employer] Attendant vasu Kidney disease, GFR = <60.Kidney failure, GFR = <15.The GFR estimate is not adjusted for extreme body surface area or acute process, nor has it been validated for women or ethnic groups other than and . Performed By: #### P HY, BUN, CREAT, FX ####Testing performed at [place] [id number] FAX REQUESTon 08-31-2018 FAX TO [phone] [facility] Comment on above: Performed By: #### P HY, BUN, CREAT, FX ####Testing performed at [address] [address] KTAERINE VINCENT PHYSICIANmateo 08-31-20 18 [facility] DEVAN UP [facility] Comment on above: Performed By: #### P HY, BUN, CREAT, FX ####Testing performed at [address] [address] BUNon 08-27-2018 Urea nitrogen mass conc 24 mg/dL High 03-27 [facility] Comment on above: Performed By: #### 2 [id number] ####OVIDIO Xedkdoia3820 [place] [address] Creatinineon 08-27-2018 Creatinine mass conc 1.6 mg/dL High 0.5-1.1 [facility] Comment on above: Performed By: #### 2 [id number] ####OVIDIO Xnzidprw4062 [place] [address] eGFRon 08-27-2018 eGFR AA 43 mL/min/1.[address] [facility] Comment on above: Order Comment: Order added by Discern Expert. Performed By: #### 1 [id number] ####OVIDIO WjlDmmt1917 [place] [address] GFR/1.73 sq M predicted among non-blacks MDRD vol rate/area (S/P/Bld) 36 mL/min/1.73 m2 [facility] Comment on above: Order Comment: Order added by Discern Expert. Performed By: #### 1 [id number] ####OVIDIO FrqZlyf9673 [place] [address] Cult,Tissueon 08-26-2018 Cult,Tissue Specimen Description .TISSUE EPIDURAL [...] Trimethoprim/Sulfa <=10 SUSCEPTIBLE Vancomycin <=0.5 SUSCEPTIBLE Normal [facility] Comment on above: Performed By: #### L ACWB #### [facility] [employer] [facility] [place], [place] [id number] Cult,Tissue Specimen Description .SPINE .TISSUE T4 LAMINA [...] Trimethoprim/Sulfa <=10 SUSCEPTIBLE Vancomycin <=0.5 SUSCEPTIBLE Normal [facility] Comment on above: Performed By: #### L ACWB #### [facility] [employer] [address] [place] [address] Basic Metabolic Profon 08-25 (cont.) Normal [facility] Comment on above: Result Comment: Aver age GFR for 30-39 years old: 107 mL/min/1.73sq m Chronic Kidney Disease: <60 mL/min/1.73sq m Kidney failure: <15 mL/min/1.73sq m eGFR calculated using average adult body mass. Additional eGFR calculator available at: http://www.[employer]/multiple_crcl_2012.htm Performed By: #### L ACWB #### [facility] [employer] [address] [place] [address] Anion gap molar conc 14 mmol/L Normal 9-17 [facility] Comment on above: Performed By: #### L ACWB #### [facility] [address] [place] [address] Calcium mass conc 9.1 mg/dL Normal 8.6-10.4 [facility] Comment on above: Performed By: #### L ACWB #### [facility] [employer] [address] [place] [address] Chloride molar conc 96 mmol/L Low 98-107 [facility] Comment on above: Performed By: #### L ACWB #### [employer] [address] [place] [address] CO2 molar conc 23 mmol/L Normal 20-31 [facility] Comment on above: Performed By: #### L ACWB #### [facility] [address] [place] [address] Creatinine mass conc 1.52 mg/dL High 0.50-0.90 [facility] Comment on above: Performed By: #### L ACWB #### [facility] [address] [place] [address] GFR, Amer 46 mL/min Low >60 [facility] Comment on above: Performed By: #### L ACWB #### [facility] [employer] [address] [place] [address] GFR,non Amer 38 mL/min Low >60 [facility] Comment on above: Performed By: #### L ACWB #### [facility] [employer] [address] [place] [address] Glucose mass conc 95 mg/dL Normal 70-99 [facility] Comment on above: Performed By: #### L ACWB #### [facility] [employer] [address] [place] [address] Potassium molar conc 4.5 mmol/L Normal 3.7-5.3 [facility] Comment on above: Performed By: #### L ACWB #### [facility] [employer] [address] [place] [address] Sodium molar conc 133 mmol/L Low 135-144 [facility] Comment on above: Performed By: #### L ACWB #### [facility] [employer] [address] [place] [address] Urea nitrogen mass conc 43 mg/dL High 6-20 [facility] Comment on above: Performed By: #### L ACWB #### [address] [address] BUN/CRE Ratio NOT REPORTED Normal - [facility] Comment on above: Performed By: #### L ACWB #### [address] [address] Staging: NOT REPORTED Normal [facility] Comment on above: Performed By: #### L ACWB #### [address] [address] CBC with Diffon 08-25-2018 Abs. Basophil 0.07 k/uL Normal 0.00-0.20 [facility] Comment on above: Performed By: #### L ACWB #### [address] [address] Abs.Imm.Granulocyte 0.08 k/uL Normal 0.00-0.30 [facility] Comment on above: Performed By: #### L ACWB #### [address] [address] Abs.Neutrophil (Seg) 5.77 k/uL Normal 1.50-8.10 [facility] Comment on above: Performed By: #### L ACWB #### [address] [address] Basophils/100 WBC (Bld) 1 % Normal 0-2 [facility] Comment on above: Performed By: #### L ACWB #### [address] [address] Eosinophils #/vol (Bld) 0.12 10*3/uL Normal 0.00-0.44 [facility] Comment on above: Performed By: #### L ACWB #### [address] [address] Eosinophils/100 WBC (Bld) 1 % Normal 1-4 [facility] Comment on above: Performed By: #### L ACWB #### [address] [address] Immature granulocytes #/vol (Bld) 1 % High 0 [facility] Comment on above: Performed By: #### L ACWB #### [address] [address] Lymphocytes #/vol (Bld) 1.83 10*3/uL Normal 1.10-3.70 [facility] Comment on above: Performed By: #### L ACWB #### [address] [address] Lymphocytes/100 WBC (Bld) 21 % Low 24-43 [facility] Comment on above: Performed By: #### L ACWB #### [address] [address] Monocytes #/vol (Bld) 0.92 10*3/uL Normal 0.10-1.20 [facility] Comment on above: Performed By: #### L ACWB #### [address] [address] Monocytes/100 WBC (Bld) 11 % Normal 3-12 [facility] Comment on above: Performed By: #### L ACWB #### [address] [address] Neutrophil (Seg) 66 % High 36-65 [facility] Comment on above: Performed By: #### L ACWB #### [address] [address] Erythrocyte distribution width Ratio (RBC) 14.6 % High 11.8-14.4 [facility] Comment on above: Performed By: #### L ACWB #### [address] [address] Hematocrit Volume Fraction (Bld) 32.6 % Low 36.3-47.1 [facility] Comment on above: Performed By: #### L ACWB #### [address] [address] Hemoglobin mass conc (Bld) 10.0 g/dL Low 11.9-15.1 [facility] Comment on above: Performed By: #### L ACWB #### [address] [address] MCH Entitic mass (RBC) 28.2 pg Normal 25.2-33.5 [facility] Comment on above: Performed By: #### L ACWB #### [address] [address] MCHC mass conc (RBC) 30.7 g/dL Normal 28.4-34.8 [facility] Comment on above: Performed By: #### L ACWB #### [address] [address] MCV Entitic volume (RBC) 91.8 fL Normal 82.6-102.9 [facility] Comment on above: Performed By: #### L ACWB #### [address] [address] NRBC Automated 0.0 per 100 WBC Normal 0.0 [facility] Comment on above: Performed By: #### L ACWB #### [address] [address] Platelet mean volume Entitic volume (Bld) 10.4 fL Normal 8.1-13.5 [facility] Comment on above: Performed By: #### L ACWB #### [address] [address] Platelets #/vol (Bld) 292 10*3/uL Normal 138-453 Me [facility] Comment on above: Performed By: #### L ACWB #### [address] [address] RBC #/vol (Bld) 3.55 10*6/uL Low 3.95-5.11 [facility] Comment on above: Performed By: #### L ACWB #### [facility] [employer] [address] [place] [address] RBC morphology finding Nom (Bld) ANISOCYTOSIS PRESENT Normal [facility] Comment on above: Performed By: #### L ACWB #### [address] [address] WBC #/vol (Bld) 8.8 10*3/uL Normal 3.5-11.3 [facility] Comment on above: Performed By: #### L ACWB #### [address] [address] Auto Diff Performed NOT REPORTED Normal [facility] Comment on above: Performed By: #### L ACWB #### [address] [address] Platelets #/vol (Bld) NOT REPORTED Normal [facility] Comment on above: Performed By: #### L ACWB #### [facility] [employer] [address] [place] [address] WBC Morphology NOT REPORTED Normal [facility] Comment on above: Performed By: #### L ACWB #### [address] [address] Fungi,Direct Examon 08-25-20 18 Fungi,Direct Exam Specimen Description .SPINE .TISSUE T4 LAMINA Special Requests NOT REPORTED Direct Exam NO FUNGAL ELEMENTS SEEN Report Status FINAL 08/25/2018 Normal [facility] Comment on above: Performed By: #### L ACWB #### [facility] [place] [address] Magnesiumon 08-25-2018 Magnesium mass conc 2.4 mg/dL Normal 1.6-2.6 [facility] Comment on above: Performed By: #### L ACWB #### [facility] [employer] [address] [place] [address] Procalcitoninon 08-25-2018 Protein mass conc 0.13 ng/mL High <0.09 [facility] Comment on above: Result Comment: Suspected [...] entered into the Change in Procalcitonin Calculator (www.vbezwy-kqe-smvrjoibqs.com) to determine the patient's Mortality Risk Prognosis Performed By: #### L ACWB #### [facility] [employer] [facility] [place] [address] Cult,Aerobe/Anaerobeon 08-24 Cult,Aerobe/Anaerobe Specimen Descriptio n .SPINE Special Requests NOT REPORTED Direct Exam DUPLICATE ORDER SEE RESULTS FOR TISSUE CULTURE Culture NOT REPORTED Report Status FINAL 08/24/2018 Normal [facility] Comment on above: Performed By: #### S PAG #### [facility] [employer] [address] [place] [address] Cult,Aerobe/Anaerobe Specimen Descriptio n .SPINE Special Requests NOT REPORTED Direct Exam DUPLICATE ORDER SEE RESUULTS FOR TISSUE CULTURE Culture NOT REPORTED Report Status FINAL 08/24/2018 Normal [facility] Comment on above: Performed By: #### S PAG #### [facility] [employer] [address] [place] [address] FLUORO FOR SURGICAL PROCEDUR ESon 08-24-2018 FLUORO FOR SURGICAL PROCEDURES Radiology exam is complete. No Radiologist dictation. Please follow up with ordering provider. Final result Normal [facility] OPERATIVE REPORTon 8 OPERATIVE REPORT [facility] [address] [place] [address] OPERATIVE REPORT PATIENT NAME: CELINA GASPAR : 1980 MED REC NO: [id number] ROOM: [facility] ACCOUNT NO: [id number] ADMIT DATE: 08/15/2018 PROVIDER: Lita Mccray MD DATE OF PROCEDURE: 08/23/2018 SURGEON: Lita Mccray MD PLASTICS PRODUCTION MACHINE OPERATOR: Eliel Larios DO PREOPERATIVE DIAGNOSIS: Epidural [...] satisfactory condition. LITA MCCRAY MD TA/[id number] Doc#: [id number] CC: Lita Mccray MD Normal [facility] Procalcitoninon 08-24-2018 Protein mass conc 0.16 ng/mL High <0.09 [facility] Comment on above: Result Comment: Suspected [...] entered into the Change in Procalcitonin Calculator (www.etkyxx-qvv-imnohejoon.[employer]) to determine the patient's Mortality Risk Prognosis Performed By: #### S PAG #### [facility] [employer] [facility] [place], [place] [id number] Basic Metab w/rfx MGon 08-23 (cont.) Normal [facility] Comment on above: Result Comment: Aver age GFR for 30-39 years old: 107 mL/min/1.73sq m Chronic Kidney Disease: <60 mL/min/1.73sq m Kidney failure: <15 mL/min/1.73sq m eGFR calculated using average adult body mass. Additional eGFR calculator available at: http://www.[employer]/multiple_crcl_2012.htm Performed By: #### S PAG #### [facility] [address] [place], [place] [id number] Anion gap molar conc 14 mmol/L Normal 9-17 [facility] Comment on above: Performed By: #### S PAG #### [facility] [address] [place], [place] [id number] Calcium mass conc 9.9 mg/dL Normal 8.6-10.4 [facility] Comment on above: Performed By: #### S PAG #### [facility] [employer] [address] [place] [address] Chloride molar conc 99 mmol/L Normal 98-107 [facility] Comment on above: Performed By: #### S PAG #### [facility] [employer] [facility] [place] [address] CO2 molar conc 26 mmol/L Normal 20-31 [facility] Comment on above: Performed By: #### S PAG #### [facility] [employer] [address] [place] [address] Creatinine mass conc 1.42 mg/dL High 0.50-0.90 [facility] Comment on above: Performed By: #### S PAG #### [facility] [employer] [address] [place] [address] GFR, Amer 50 mL/min Low >60 [facility] Comment on above: Performed By: #### S PAG #### [facility] [employer] [address] [place] [address] GFR,non Amer 41 mL/min Low >60 [facility] Comment on above: Performed By: #### S PAG #### [facility] [employer] [address] [place] [address] Glucose mass conc 95 mg/dL Normal 70-99 [facility] Comment on above: Performed By: #### S PAG #### [facility] [employer] [address] [place] [address] Potassium molar conc 4.9 mmol/L Normal 3.7-5.3 [facility] Comment on above: Result Comment: SPEC IMEN SLIGHTLY HEMOLYZED, RESULTS MAY BE ADVERSELY AFFECTED. Performed By: #### S PAG #### [facility] [employer] [address] [place] [address] Sodium molar conc 139 mmol/L Normal 135-144 [facility] Comment on above: Performed By: #### S PAG #### [address] [address] Urea nitrogen mass conc 31 mg/dL High 6-20 [facility] Comment on above: Performed By: #### S PAG #### [address] [address] BUN/CRE Ratio NOT REPORTED Normal 9- [facility] Comment on above: Performed By: #### S PAG #### [address] [address] Staging: NOT REPORTED Normal [facility] Comment on above: Performed By: #### S PAG #### [address] [address] CBC with Diffon 08-23-2018 Abs. Basophil 0.06 k/uL Normal 0.00-0.20 [facility] Comment on above: Performed By: #### S PAG #### [address] [address] Abs.Imm.Granulocyte 0.22 k/uL Normal 0.00-0.30 [facility] Comment on above: Performed By: #### S PAG #### [address] [address] Abs.Neutrophil (Seg) 4.43 k/uL Normal 1.50-8.10 [facility] Comment on above: Performed By: #### S PAG #### [address] [address] Basophils/100 WBC (Bld) 1 % Normal 0-2 [facility] Comment on above: Performed By: #### S PAG #### [address] [address] Eosinophils #/vol (Bld) 0.15 10*3/uL Normal 0.00-0.44 [facility] Comment on above: Performed By: #### S PAG #### [address] [address] Eosinophils/100 WBC (Bld) 2 % Normal 1-4 [facility] Comment on above: Performed By: #### S PAG #### [address] [address] Erythrocyte distribution width Ratio (RBC) 14.4 % Normal 11.8-14.4 [facility] Comment on above: Performed By: #### S PAG #### [address] [address] Hematocrit Volume Fraction (Bld) 33.2 % Low 36.3-47.1 [facility] Comment on above: Performed By: #### S PAG #### [address] [address] Hemoglobin mass conc (Bld) 10.4 g/dL Low 11.9-15.1 [facility] Comment on above: Performed By: #### S PAG #### [address] [address] Immature granulocytes #/vol (Bld) 3 % High 0 [facility] Comment on above: Performed By: #### S PAG #### [facility] [employer] [address] [place] [address] Lymphocytes #/vol (Bld) 2.22 10*3/uL Normal 1.10-3.70 [facility] Comment on above: Performed By: #### S PAG #### [address] [address] Lymphocytes/100 WBC (Bld) 29 % Normal 24-43 [facility] Comment on above: Performed By: #### S PAG #### [address] [address] MCH Entitic mass (RBC) 27.7 pg Normal 25.2-33.5 [facility] Comment on above: Performed By: #### S PAG #### [address] [address] MCHC mass conc (RBC) 31.3 g/dL Normal 28.4-34.8 [facility] Comment on above: Performed By: #### S PAG #### [address] [address] MCV Entitic volume (RBC) 88.3 fL Normal 82.6-102.9 [facility] Comment on above: Performed By: #### S PAG #### [address] [address] Monocytes #/vol (Bld) 0.63 10*3/uL Normal 0.10-1.20 [facility] Comment on above: Performed By: #### S PAG #### [address] [address] Monocytes/100 WBC (Bld) 8 % Normal 3-12 [facility] Comment on above: Performed By: #### S PAG #### [address] [address] Neutrophil (Seg) 57 % Normal 36-65 [facility] Comment on above: Performed By: #### S PAG #### [address] [address] NRBC Automated 0.0 per 100 WBC Normal 0.0 [facility] Comment on above: Performed By: #### S PAG #### [address] [address] Platelets #/vol (Bld) See Reflexed IPF Result Normal 138-453 [facility] Comment on above: Performed By: #### S PAG #### [address] [address] RBC #/vol (Bld) 3.76 10*6/uL Low 3.95-5.11 [facility] Comment on above: Performed By: #### S PAG #### [address] [address] WBC #/vol (Bld) 7.7 10*3/uL Normal 3.5-11.3 [facility] Comment on above: Performed By: #### S PAG #### [address] [address] Auto Diff Performed NOT REPORTED Normal [facility] Comment on above: Performed By: #### S PAG #### [address] [address] Platelet mean volume Entitic volume (Bld) NOT REPORTED Normal 8.1-13.5 [facility] Comment on above: Performed By: #### S PAG #### [address] [address] Platelets #/vol (Bld) NOT REPORTED Normal [facility] Comment on above: Performed By: #### S PAG #### [address] [address] RBC morphology finding Nom (Bld) NOT REPORTED Normal [facility] Comment on above: Performed By: #### S PAG #### [address] [address] WBC Morphology NOT REPORTED Normal [facility] Comment on above: Performed By: #### S PAG #### [address] [address] Cult,Bloodon 08-23-2018 Cult,Blood Specimen Description .BLOOD Special Requests L AC 6ML Culture NO GROWTH 6 DAYS Report Status FINAL 08/23/2018 Normal [facility] Comment on above: Performed By: #### S PAG #### [address] [address] Cult,Blood Specimen Description .BLOOD Special Requests L FOREARM 6ML Culture NO GROWTH 6 DAYS Report Status FINAL 08/23/2018 Normal [facility] Comment on above: Performed By: #### S PAG #### [address] [address] PLT, Immature Fract.on 08-23 Platelet, Fluoresc. 113 k/uL Low 138-453 [facility] Comment on above: Performed By: #### S PAG #### [address] [address] PLT, Immature Fract. 3.7 % Normal 1.1-10.3 [facility] Comment on above: Performed By: #### S PAG #### [address] [address] CBC with Diffon 08-22-2018 Abs. Basophil 0.00 k/uL Normal 0.0-0.2 [facility] Comment on above: Performed By: #### U LAG #### [address] [address] Abs.Imm.Granulocyte 0.30 k/uL Normal 0.00-0.30 [facility] Comment on above: Performed By: #### U LAG #### [address] [address] Abs.Neutrophil (Seg) 4.87 k/uL Normal 1.8-7.7 [facility] Comment on above: Performed By: #### U LAG #### [address] [address] Basophils/100 WBC (Bld) 0 % Normal 0-2 [facility] Comment on above: Performed By: #### U LAG #### [address] [address] Eosinophils #/vol (Bld) 0.00 10*3/uL Normal 0.0-0.4 [facility] Comment on above: Performed By: #### U LAG #### [address] [address] Eosinophils/100 WBC (Bld) 0 % Low 1-4 [facility] Comment on above: Performed By: #### U LAG #### [address] [address] Immature granulocytes #/vol (Bld) 4 % High 0 [facility] Comment on above: Performed By: #### U LAG #### [address] [address] Lymphocytes #/vol (Bld) 1.88 10*3/uL Normal 1.0-4.8 [facility] Comment on above: Performed By: #### U LAG #### [address] [address] Lymphocytes/100 WBC (Bld) 25 % Normal 24-44 [facility] Comment on above: Performed By: #### U LAG #### [address] [address] Monocytes #/vol (Bld) 0.45 10*3/uL Normal 0.1-0.8 [facility] Comment on above: Performed By: #### U LAG #### [address] [address] Monocytes/100 WBC (Bld) 6 % Normal 1-7 [facility] Comment on above: Performed By: #### U LAG #### [address] [place] [address] Morphology Interp Rehan (Bld) ANISOCYTOSIS PRESENT Normal [facility] Comment on above: Performed By: #### U LAG #### [address] [address] Neutrophil (Seg) 65 % Normal 36-66 [facility] Comment on above: Performed By: #### U LAG #### [address] [address] Erythrocyte distribution width Ratio (RBC) 14.5 % High 11.8-14.4 [facility] Comment on above: Performed By: #### U LAG #### [address] [address] Hematocrit Volume Fraction (Bld) 38.1 % Normal 36.3-47.1 [facility] Comment on above: Performed By: #### U LAG #### [address] [address] Hemoglobin mass conc (Bld) 11.5 g/dL Low 11.9-15.1 [facility] Comment on above: Performed By: #### U LAG #### [address] [address] MCH Entitic mass (RBC) 28.3 pg Normal 25.2-33.5 [facility] Comment on above: Performed By: #### U LAG #### [address] [address] MCHC mass conc (RBC) 30.2 g/dL Normal 28.4-34.8 [facility] Comment on above: Performed By: #### U LAG #### [address] [address] MCV Entitic volume (RBC) 93.6 fL Normal 82.6-102.9 [facility] Comment on above: Performed By: #### U LAG #### [address] [address] NRBC Automated 0.0 per 100 WBC Normal 0.0 [facility] Comment on above: Performed By: #### U LAG #### [address] [address] Platelet mean volume Entitic volume (Bld) 10.7 fL Normal 8.1-13.5 [facility] Comment on above: Performed By: #### U LAG #### [address] [address] Platelets #/vol (Bld) 265 10*3/uL Normal 138-453 [facility] Comment on above: Performed By: #### U LAG #### [address] [address] RBC #/vol (Bld) 4.07 10*6/uL Normal 3.95-5.11 [facility] Comment on above: Performed By: #### U LAG #### [address] [address] WBC #/vol (Bld) 7.5 10*3/uL Normal 3.5-11.3 [facility] Comment on above: Performed By: #### U LAG #### [address] [address] Auto Diff Performed NOT REPORTED Normal [facility] Comment on above: Performed By: #### U LAG #### [address] [address] Platelets #/vol (Bld) NOT REPORTED Normal [facility] Comment on above: Performed By: #### U LAG #### [address] [address] RBC morphology finding Nom (Bld) NOT REPORTED Normal [facility] Comment on above: Performed By: #### U LAG #### [address] [address] WBC Morphology NOT REPORTED Normal [facility] Comment on above: Performed By: #### U LAG #### [address] [address] Comp Metabolic Pr/rfx MGon 1 10-22-2017 Albumin mass conc 3.2 g/dL Low 3.5-5.2 [facility] Comment on above: Performed By: #### U LAG #### [address] [address] Albumin/Globulin mass ratio 0.8 {ratio} Low 1.0-2.5 [facility] Comment on above: Performed By: #### U LAG #### [address] [address] Alkaline Phos 90 U/L Normal 35-104 [facility] Comment on above: Performed By: #### U LAG #### [address] [address] ALT enzyme act/vol 18 U/L Normal 5-33 [facility] Comment on above: Performed By: #### U LAG #### [facility] [employer] [address] [place] [address] AST enzyme act/vol 16 U/L Normal <32 [facility] Comment on above: Performed By: #### U LAG #### [facility] [employer] [address] [place] [address] Protein mass conc 7.0 g/dL Normal 6.4-8.3 [facility] Comment on above: Performed By: #### U LAG #### [facility] [employer] [address] [place] [address] (cont.) Normal [facility] Comment on above: Result Comment: Aver age GFR for 30-39 years old: 107 mL/min/1.73sq m Chronic Kidney Disease: <60 mL/min/1.73sq m Kidney failure: <15 mL/min/1.73sq m eGFR calculated using average adult body mass. Additional eGFR calculator available at: http://www.[employer]/multiple_crcl_2012.htm Performed By: #### U LAG #### [facility] [address] [place] [address] Anion gap molar conc 15 mmol/L Normal 9-17 [facility] Comment on above: Performed By: #### U LAG #### [facility] [address] [place] [address] Bilirubin Ql (U) 0.34 mg/dL Normal 0.3-1.2 [facility] Comment on above: Performed By: #### U LAG #### [facility] [address] [place] [address] Calcium mass conc 9.7 mg/dL Normal 8.6-10.4 [facility] Comment on above: Performed By: #### U LAG #### [facility] [address] [place] [address] Chloride molar conc 100 mmol/L Normal 98-107 [facility] Comment on above: Performed By: #### U LAG #### [facility] [address] [place] [address] CO2 molar conc 24 mmol/L Normal 20-31 [facility] Comment on above: Performed By: #### U LAG #### [facility] [address] [place] [address] Creatinine mass conc 1.02 mg/dL High 0.50-0.90 [facility] Comment on above: Performed By: #### U LAG #### [employer] [address] [place] [address] GFR, Amer >60 Normal >60 [facility] Comment on above: Performed By: #### U LAG #### [facility] [employer] [address] [place] [address] GFR,non Amer >60 Normal >60 [facility] Comment on above: Performed By: #### U LAG #### [facility] [employer] [address] [place] [address] Glucose mass conc 101 mg/dL High 70-99 [facility] Comment on above: Performed By: #### U LAG #### [facility] [employer] [address] [place] [address] Potassium molar conc 4.5 mmol/L Normal 3.7-5.3 [facility] Comment on above: Performed By: #### U LAG #### [facility] [employer] [address] [place] [address] Sodium molar conc 139 mmol/L Normal 135-144 [facility] Comment on above: Performed By: #### U LAG #### [facility] [employer] [address] [place] [address] Urea nitrogen mass conc 19 mg/dL Normal 6-20 [facility] Comment on above: Performed By: #### U LAG #### [facility] [employer] [address] [place] [address] BUN/CRE Ratio NOT REPORTED Normal 9-20 [facility] Comment on above: Performed By: #### U LAG #### [facility] [employer] [address] [place] [address] Staging: NOT REPORTED Normal [facility] Comment on above: Performed By: #### U LAG #### [facility] [employer] [address] [place] [address] Magnesiumon 11-18-2018 Magnesium mass conc 2.4 mg/dL Normal 1.6-2.6 [facility] Comment on above: Performed By: #### U LAG #### [facility] [employer] [address] [place] [address] Vancomycin Troughon 08-22-20 18 Vancomycin Trough 20.2 ug/mL Critically high 10.0-20.0 [facility] Comment on above: Result Comment: High er trough serum vancomycin concentrations of 15-20 ug/mL are recommended for complicated infections such as bacteremia, endocarditis, osteomyelitis, meningitis, and hospital acquired pneumonia. ADDED ON Performed By: #### U LAG #### [facility] [employer] [address] [place] [address] Date last dose, NOT REPORTED Normal [facility] Comment on above: Performed By: #### U LAG #### [facility] [employer] [address] [place] [address] Dose amount, NOT REPORTED Normal [facility] Comment on above: Performed By: #### U LAG #### [facility] [employer] [address] [place] [address] Time last dose, NOT REPORTED Normal [facility] Comment on above: Performed By: #### U LAG #### [facility] [employer] [address] [place] [address] CBC with Diffon 08-21-2018 Abs. Basophil 0.08 k/uL Normal 0.00-0.20 [facility] Comment on above: Performed By: #### U LAG #### [facility] [employer] [address] [place] [address] Abs.Imm.Granulocyte 0.50 k/uL High 0.00-0.30 [facility] Comment on above: Performed By: #### U LAG #### [address] [address] Abs.Neutrophil (Seg) 4.73 k/uL Normal 1.50-8.10 [facility] Comment on above: Performed By: #### U LAG #### [address] [address] Basophils/100 WBC (Bld) 1 % Normal 0-2 [facility] Comment on above: Performed By: #### U LAG #### [address] [address] Eosinophils #/vol (Bld) 0.17 10*3/uL Normal 0.00-0.44 [facility] Comment on above: Performed By: #### U LAG #### [address] [address] Eosinophils/100 WBC (Bld) 2 % Normal 1-4 [facility] Comment on above: Performed By: #### U LAG #### [address] [address] Immature granulocytes #/vol (Bld) 6 % High 0 [facility] Comment on above: Performed By: #### U LAG #### [address] [address] Lymphocytes #/vol (Bld) 2.24 10*3/uL Normal 1.10-3.70 [facility] Comment on above: Performed By: #### U LAG #### [address] [address] Lymphocytes/100 WBC (Bld) 27 % Normal 24-43 [facility] Comment on above: Performed By: #### U LAG #### [address] [address] Monocytes #/vol (Bld) 0.58 10*3/uL Normal 0.10-1.20 [facility] Comment on above: Performed By: #### U LAG #### [facility] [address] [place] [address] Monocytes/100 WBC (Bld) 7 % Normal 3-12 [facility] Comment on above: Performed By: #### U LAG #### [address] [address] Morphology Interp Rehan (Bld) ANISOCYTOSIS PRESENT Normal [facility] Comment on above: Performed By: #### U LAG #### [facility] [employer] [address] [place] [address] Neutrophil (Seg) 57 % Normal 36-65 [facility] Comment on above: Performed By: #### U LAG #### [address] [address] Erythrocyte distribution width Ratio (RBC) 14.6 % High 11.8-14.4 [facility] Comment on above: Performed By: #### U LAG #### [address] [address] Hematocrit Volume Fraction (Bld) 38.5 % Normal 36.3-47.1 [facility] Comment on above: Performed By: #### U LAG #### [address] [address] Hemoglobin mass conc (Bld) 11.5 g/dL Low 11.9-15.1 [facility] Comment on above: Performed By: #### U LAG #### [address] [address] MCH Entitic mass (RBC) 28.2 pg Normal 25.2-33.5 [facility] Comment on above: Performed By: #### U LAG #### [address] [address] MCHC mass conc (RBC) 29.9 g/dL Normal 28.4-34.8 [facility] Comment on above: Performed By: #### U LAG #### [address] [address] MCV Entitic volume (RBC) 94.4 fL Normal 82.6-102.9 [facility] Comment on above: Performed By: #### U LAG #### [address] [address] NRBC Automated 0.0 per 100 WBC Normal 0.0 [facility] Comment on above: Performed By: #### U LAG #### [address] [address] Platelet mean volume Entitic volume (Bld) 10.5 fL Normal 8.1-13.5 [facility] Comment on above: Performed By: #### U LAG #### [address] [address] Platelets #/vol (Bld) 264 10*3/uL Normal 138-453 [facility] Comment on above: Performed By: #### U LAG #### [address] [address] RBC #/vol (Bld) 4.08 10*6/uL Normal 3.95-5.11 [facility] Comment on above: Performed By: #### U LAG #### [address] [address] WBC #/vol (Bld) 8.3 10*3/uL Normal 3.5-11.3 [facility] Comment on above: Performed By: #### U LAG #### [address] [address] Auto Diff Performed NOT REPORTED Normal [facility] Comment on above: Performed By: #### U LAG #### [address] [address] Platelets #/vol (Bld) NOT REPORTED Normal [facility] Comment on above: Performed By: #### U LAG #### [facility] [employer] [address] [place] [address] RBC morphology finding Nom (Bld) NOT REPORTED Normal [facility] Comment on above: Performed By: #### U LAG #### [facility] [employer] [address] [place] [address] WBC Morphology NOT REPORTED Normal [facility] Comment on above: Performed By: #### U LAG #### [facility] [employer] [address] [place] [address] Comp Metabolic Pr/rfx MGon 1 10-21-2017 (cont.) Normal [facility] Comment on above: Result Comment: Aver age GFR for 30-39 years old: 107 mL/min/1.73sq m Chronic Kidney Disease: <60 mL/min/1.73sq m Kidney failure: <15 mL/min/1.73sq m eGFR calculated using average adult body mass. Additional eGFR calculator available at: http://www.[employer]/multiple_crcl_2012.htm Performed By: #### U LAG #### [facility] [employer] [address] [place] [address] Albumin mass conc 2.9 g/dL Low 3.5-5.2 [facility] Comment on above: Performed By: #### U LAG #### [facility] [employer] [address] [place] [address] Albumin/Globulin mass ratio 0.7 {ratio} Low 1.0-2.5 [facility] Comment on above: Performed By: #### U LAG #### [facility] [employer] [address] [place] [address] Alkaline Phos 98 U/L Normal 35-104 [facility] Comment on above: Performed By: #### U LAG #### [facility] [place] [address] ALT enzyme act/vol 19 U/L Normal 5-33 [facility] Comment on above: Performed By: #### U LAG #### [facility] [address] [place] [address] Anion gap molar conc 14 mmol/L Normal 9-17 [facility] Comment on above: Performed By: #### U LAG #### [facility] [address] [place] [address] 61189 AST enzyme act/vol 21 U/L Normal <32 [facility] Comment on above: Performed By: #### U LAG #### [facility] [address] [place] [address]59 Bilirubin Ql (U) 0.32 mg/dL Normal 0.3-1.2 [facility] Comment on above: Performed By: #### U LAG #### [facility] [employer] [address] [place] [address] Calcium mass conc 9.1 mg/dL Normal 8.6-10.4 [facility] Comment on above: Performed By: #### U LAG #### [facility] [address] [place] [address] Chloride molar conc 102 mmol/L Normal 98-107 [facility] Comment on above: Performed By: #### U LAG #### [facility] [address] [place] [address] CO2 molar conc 23 mmol/L Normal 20-31 [facility] Comment on above: Performed By: #### U LAG #### [facility] [address] [place] [address] 99084 Creatinine mass conc 0.90 mg/dL Normal 0.50-0.90 [facility] Comment on above: Performed By: #### U LAG #### [facility] [place] [address] GFR, Amer >60 Normal >60 [facility] Comment on above: Performed By: #### U LAG #### [facility] [employer] [address] [place] [address] GFR,non Amer >60 Normal >60 [facility] Comment on above: Performed By: #### U LAG #### [facility] [employer] [address] [place] [address] 03427 Glucose mass conc 108 mg/dL High 70-99 [facility] Comment on above: Performed By: #### U LAG #### [facility] [employer] [address] [place] [address] 86953 Potassium molar conc 4.6 mmol/L Normal 3.7-5.3 [facility] Comment on above: Performed By: #### U LAG #### [facility] [employer] [address] [place] [address] 84666 Protein mass conc 6.9 g/dL Normal 6.4-8.3 [facility] Comment on above: Performed By: #### U LAG #### [facility] [employer] [address] [place] [address] 68286 Sodium molar conc 139 mmol/L Normal 135-144 [facility] Comment on above: Performed By: #### U LAG #### [facility] [address] [place] [address] 31434 Urea nitrogen mass conc 17 mg/dL Normal 6-20 [facility] Comment on above: Performed By: #### U LAG #### [facility] [employer] [address] [place] [address] BUN/CRE Ratio NOT REPORTED Normal 9-20 [facility] Comment on above: Performed By: #### U LAG #### [facility] [employer] [address] [place] [address]647 Staging: NOT REPORTED Normal [facility] Comment on above: Performed By: #### U LAG #### [facility] [address] [place] [address] Cult,Bloodon 08-21-2018 Cult,Blood Specimen Description .BLOOD Special Requests L AC 20ML Culture POSITIVE Blood Culture CALLED TO MIS Medina [id number] DIRECT GRAM STAIN FROM BOTTLE: GRAM POSITIVE COCCI IN CLUSTERS METHICILLIN RESISTANT STAPHYLOCOCCUS AUREUS For susceptibility, refer to previous culture. Report Status FINAL 08/21/2018 Normal [facility] Comment on above: Performed By: #### U LAG #### [facility] [address] [place] [address] MRI FOOT LEFT W WO CONTRASTo n [...] Murali Goff MD 08/21/18 Final result Normal [facility] Magnesiumon 08-21-2018 Magnesium mass conc 2.4 mg/dL Normal 1.6-2.6 [facility] Comment on above: Performed By: #### U LAG #### [facility] [employer] [facility] [place] [address] Procalcitoninon 08-21-2018 Protein mass conc 0.27 ng/mL High <0.09 [facility] Comment on above: Result Comment: Suspected [...] entered into the Change in Procalcitonin Calculator (www.zwisbj-rqy-outlgasqxb.com) to determine the patient's Mortality Risk Prognosis Performed By: #### U LAG #### [address] [address] C-Reactive Proteinon 018 CRP mass conc 50.4 mg/L High 0.0-5.0 [facility] Comment on above: Performed By: #### L ACDS, TROPI, PRCAL, MYCM #### [place] [address] CBC with Diffon 08-20-2018 Abs. Basophil 0.08 k/uL Normal 0.0-0.2 [facility] Comment on above: Performed By: #### L ACDS, TROPI, PRCAL, MYCM #### [address] [address] Abs.Imm.Granulocyte 0.42 k/uL High 0.00-0.30 [facility] Comment on above: Performed By: #### L ACDS, TROPI, PRCAL, MYCM #### [address] [address] Abs.Neutrophil (Seg) 4.57 k/uL Normal 1.8-7.7 [facility] Comment on above: Performed By: #### L ACDS, TROPI, PRCAL, MYCM #### [address] [address] Basophils/100 WBC (Bld) 1 % Normal 0-2 [facility] Comment on above: Performed By: #### L ACDS, TROPI, PRCAL, MYCM #### [facility] [employer] [address] [place] [address] Eosinophils #/vol (Bld) 0.25 10*3/uL Normal 0.0-0.4 [facility] Comment on above: Performed By: #### L ACDS, TROPI, PRCAL, MYCM #### [address] [address] Eosinophils/100 WBC (Bld) 3 % Normal 1-4 [facility] Comment on above: Performed By: #### L ACDS, TROPI, PRCAL, MYCM #### [address] [address] Immature granulocytes #/vol (Bld) 5 % High 0 [facility] Comment on above: Performed By: #### L ACDS, TROPI, PRCAL, MYCM #### [address] [address] Lymphocytes #/vol (Bld) 2.32 10*3/uL Normal 1.0-4.8 [facility] Comment on above: Performed By: #### L ACDS, TROPI, PRCAL, MYCM #### [address] [address] Lymphocytes/100 WBC (Bld) 28 % Normal 24-44 [facility] Comment on above: Performed By: #### L ACDS, TROPI, PRCAL, MYCM #### [address] [address] Monocytes #/vol (Bld) 0.66 10*3/uL Normal 0.1-0.8 [facility] Comment on above: Performed By: #### L ACDS, TROPI, PRCAL, MYCM #### [address] [address] Monocytes/100 WBC (Bld) 8 % High 1-7 [facility] Comment on above: Performed By: #### L ACDS, TROPI, PRCAL, MYCM #### [address] [address] Morphology Interp Rehan (Bld) ANISOCYTOSIS PRESENT Normal [facility] Comment on above: Performed By: #### L ACDS, TROPI, PRCAL, MYCM #### [address] [address] Neutrophil (Seg) 55 % Normal 36-66 [facility] Comment on above: Performed By: #### L ACDS, TROPI, PRCAL, MYCM #### [address] [address] Erythrocyte distribution width Ratio (RBC) 14.6 % High 11.8-14.4 [facility] Comment on above: Performed By: #### L ACDS, TROPI, PRCAL, MYCM #### [facility] [employer] [address] [place] [address] Hematocrit Volume Fraction (Bld) 33.5 % Low 36.3-47.1 [facility] Comment on above: Performed By: #### L ACDS, TROPI, PRCAL, MYCM #### [address] [address] Hemoglobin mass conc (Bld) 10.2 g/dL Low 11.9-15.1 [facility] Comment on above: Performed By: #### L ACDS, TROPI, PRCAL, MYCM #### [address] [address] MCH Entitic mass (RBC) 27.9 pg Normal 25.2-33.5 [facility] Comment on above: Performed By: #### L ACDS, TROPI, PRCAL, MYCM #### [address] [address] MCHC mass conc (RBC) 30.4 g/dL Normal 28.4-34.8 [facility] Comment on above: Performed By: #### L ACDS, TROPI, PRCAL, MYCM #### [facility] [employer] [address] [place] [address] MCV Entitic volume (RBC) 91.5 fL Normal 82.6-102.9 [facility] Comment on above: Performed By: #### L ACDS, TROPI, PRCAL, MYCM #### [facility] [employer] [address] [place] [address] NRBC Automated 0.0 per 100 WBC Normal 0.0 [facility] Comment on above: Performed By: #### L ACDS, TROPI, PRCAL, MYCM #### [facility] [employer] [address] [place] [address] Platelet mean volume Entitic volume (Bld) 11.0 fL Normal 8.1-13.5 [facility] Comment on above: Performed By: #### L ACDS, TROPI, PRCAL, MYCM #### [address] [address] Platelets #/vol (Bld) 211 10*3/uL Normal 138-453 [facility] Comment on above: Performed By: #### L ACDS, TROPI, PRCAL, MYCM #### [address] [address] RBC #/vol (Bld) 3.66 10*6/uL Low 3.95-5.11 [facility] Comment on above: Performed By: #### L ACDS, TROPI, PRCAL, MYCM #### [facility] [employer] [address] [place] [address] WBC #/vol (Bld) 8.3 10*3/uL Normal 3.5-11.3 [facility] Comment on above: Performed By: #### L ACDS, TROPI, PRCAL, MYCM #### [facility] [employer] [address] [place] [address] Auto Diff Performed NOT REPORTED Normal [facility] Comment on above: Performed By: #### L ACDS, TROPI, PRCAL, MYCM #### [facility] [employer] [address] [place] [address] Platelets #/vol (Bld) NOT REPORTED Normal [facility] Comment on above: Performed By: #### L ACDS, TROPI, PRCAL, MYCM #### [facility] [employer] [address] [place] [address] RBC morphology finding Nom (Bld) NOT REPORTED Normal [facility] Comment on above: Performed By: #### L ACDS, TROPI, PRCAL, MYCM #### [facility] [employer] [address] [place] [address] WBC Morphology NOT REPORTED Normal [facility] Comment on above: Performed By: #### L ACDS, TROPI, PRCAL, MYCM #### [address] [address] Comp Metabolic Pr/rfx MGon 1 10-20-2017 (cont.) Normal [facility] Comment on above: Result Comment: Aver age GFR for 30-39 years old: 107 mL/min/1.73sq m Chronic Kidney Disease: <60 mL/min/1.73sq m Kidney failure: <15 mL/min/1.73sq m eGFR calculated using average adult body mass. Additional eGFR calculator available at: http://www.Joognu.com/multiple_crcl_2012.htm Performed By: #### L ACDS, TROPI, PRCAL, MYCM #### [facility] [employer] [address] [place] [address] Albumin mass conc 3.1 g/dL Low 3.5-5.2 [facility] Comment on above: Performed By: #### L ACDS, TROPI, PRCAL, MYCM #### [facility] [employer] [address] [place] [address] Albumin/Globulin mass ratio 0.9 {ratio} Low 1.0-2.5 [facility] Comment on above: Performed By: #### L ACDS, TROPI, PRCAL, MYCM #### [facility] [employer] [address] [place] [address] Alkaline Phos 83 U/L Normal 35-104 [facility] Comment on above: Performed By: #### L ACDS, TROPI, PRCAL, MYCM #### [facility] [employer] [address] [place] [address] ALT enzyme act/vol 17 U/L Normal 5-33 [facility] Comment on above: Performed By: #### L ACDS, TROPI, PRCAL, MYCM #### [facility] [employer] [address] [place] [address] Anion gap molar conc 11 mmol/L Normal 9-17 [facility] Comment on above: Performed By: #### L ACDS, TROPI, PRCAL, MYCM #### [facility] [employer] [address] [place] [address] AST enzyme act/vol 18 U/L Normal <32 [facility] Comment on above: Performed By: #### L ACDS, TROPI, PRCAL, MYCM #### [facility] [employer] [address] [place] [address] Bilirubin Ql (U) 0.29 mg/dL Low 0.3-1.2 [facility] Comment on above: Performed By: #### L ACDS, TROPI, PRCAL, MYCM #### [facility] [employer] [address] [place] [address] Calcium mass conc 9.0 mg/dL Normal 8.6-10.4 [facility] Comment on above: Performed By: #### L ACDS, TROPI, PRCAL, MYCM #### [facility] [employer] [address] [place] [address] Chloride molar conc 101 mmol/L Normal 98-107 [facility] Comment on above: Performed By: #### L ACDS, TROPI, PRCAL, MYCM #### [facility] [employer] [address] [place] [address] CO2 molar conc 27 mmol/L Normal 20-31 [facility] Comment on above: Performed By: #### L ACDS, TROPI, PRCAL, MYCM #### [facility] [employer] [address] [place] [address] Creatinine mass conc 0.97 mg/dL High 0.50-0.90 [facility] Comment on above: Performed By: #### L ACDS, TROPI, PRCAL, MYCM #### [facility] [employer] [address] [place] [address] GFR, Amer >60 Normal >60 [facility] Comment on above: Performed By: #### L ACDS, TROPI, PRCAL, MYCM #### [facility] [employer] [address] [place] [address] GFR,non Amer >60 Normal >60 [facility] Comment on above: Performed By: #### L ACDS, TROPI, PRCAL, MYCM #### [facility] [employer] [address] [place] [address] Glucose mass conc 105 mg/dL High 70-99 [facility] Comment on above: Performed By: #### L ACDS, TROPI, PRCAL, MYCM #### [facility] [employer] [address] [place] [address] Potassium molar conc 4.4 mmol/L Normal 3.7-5.3 [facility] Comment on above: Performed By: #### L ACDS, TROPI, PRCAL, MYCM #### [facility] [employer] [address] [place] [address] Protein mass conc 6.6 g/dL Normal 6.4-8.3 [facility] Comment on above: Performed By: #### L ACDS, TROPI, PRCAL, MYCM #### [facility] [address] [place] [address] Sodium molar conc 139 mmol/L Normal 135-144 [facility] Comment on above: Performed By: #### L ACDS, TROPI, PRCAL, MYCM #### [facility] [address] [place] [address] Urea nitrogen mass conc 15 mg/dL Normal -20 [facility] Comment on above: Performed By: #### L ACDS, TROPI, PRCAL, MYCM #### [facility] [address] [place] [address] BUN/CRE Ratio NOT REPORTED Normal 06-24 [facility] Comment on above: Performed By: #### L ACDS, TROPI, PRCAL, MYCM #### [facility] [address] [place] [address] Staging: NOT REPORTED Normal [facility] Comment on above: Performed By: #### L ACDS, TROPI, PRCAL, MYCM #### [facility] [address] [place] [address] Magnesiumon 08-20-2018 Magnesium mass conc 2.2 mg/dL Normal 1.6-2.6 [facility] Comment on above: Performed By: #### L ACDS, TROPI, PRCAL, MYCM #### [facility] [address] [place] [address] Sedimentation Rateon 018 Sedimentation Rate 100 mm High 0-20 [facility] Comment on above: Performed By: #### L ACDS, TROPI, PRCAL, MYCM #### [facility] [address] [place] [address] XR FOOT LEFT (MIN 3 VIEWS)on 08-20-2018 [...] Andrey Angelo MD 08/20/18 Final result Normal [facility] CBC with Diffon 08-19-2018 Abs. Basophil 0.00 k/uL Normal 0.0-0.2 [facility] Comment on above: Performed By: #### L ACDS, TROPI, PRCAL, MYCM #### [place] [address] Abs.Imm.Granulocyte 0.42 k/uL High 0.00-0.30 [facility] Comment on above: Performed By: #### L ACDS, TROPI, PRCAL, MYCM #### [place] [address] Abs.Neutrophil (Seg) 2.70 k/uL Normal 1.8-7.7 [facility] Comment on above: Performed By: #### L ACDS, TROPI, PRCAL, MYCM #### [facility] [employer] [address] [place] [address] Basophils/100 WBC (Bld) 0 % Normal 0-2 [facility] Comment on above: Performed By: #### L ACDS, TROPI, PRCAL, MYCM #### [facility] [employer] [address] [place] [address] Eosinophils #/vol (Bld) 0.30 10*3/uL Normal 0.0-0.4 [facility] Comment on above: Performed By: #### L ACDS, TROPI, PRCAL, MYCM #### [address] [address] Eosinophils/100 WBC (Bld) 5 % High 1-4 [facility] Comment on above: Performed By: #### L ACDS, TROPI, PRCAL, MYCM #### [address] [address] Immature granulocytes #/vol (Bld) 7 % High 0 [facility] Comment on above: Performed By: #### L ACDS, TROPI, PRCAL, MYCM #### [address] [address] Lymphocytes #/vol (Bld) 2.22 10*3/uL Normal 1.0-4.8 [facility] Comment on above: Performed By: #### L ACDS, TROPI, PRCAL, MYCM #### [address] [address] Lymphocytes/100 WBC (Bld) 37 % Normal 24-44 [facility] Comment on above: Performed By: #### L ACDS, TROPI, PRCAL, MYCM #### [address] [address] Monocytes #/vol (Bld) 0.36 10*3/uL Normal 0.1-0.8 [facility] Comment on above: Performed By: #### L ACDS, TROPI, PRCAL, MYCM #### [address] [address] Monocytes/100 WBC (Bld) 6 % Normal 1-7 [facility] Comment on above: Performed By: #### L ACDS, TROPI, PRCAL, MYCM #### [address] [address] Morphology Interp Rehan (Bld) ANISOCYTOSIS PRESENT Normal [facility] Comment on above: Performed By: #### L ACDS, TROPI, PRCAL, MYCM #### [address] [address] Neutrophil (Seg) 45 % Normal 36-66 [facility] Comment on above: Performed By: #### L ACDS, TROPI, PRCAL, MYCM #### [address] [address] Erythrocyte distribution width Ratio (RBC) 14.6 % High 11.8-14.4 [facility] Comment on above: Performed By: #### L ACDS, TROPI, PRCAL, MYCM #### [address] [address] Hematocrit Volume Fraction (Bld) 34.4 % Low 36.3-47.1 [facility] Comment on above: Performed By: #### L ACDS, TROPI, PRCAL, MYCM #### [address] [address] Hemoglobin mass conc (Bld) 10.4 g/dL Low 11.9-15.1 [facility] Comment on above: Performed By: #### L ACDS, TROPI, PRCAL, MYCM #### [address] [address] MCH Entitic mass (RBC) 28.0 pg Normal 25.2-33.5 [facility] Comment on above: Performed By: #### L ACDS, TROPI, PRCAL, MYCM #### [address] [address] MCHC mass conc (RBC) 30.2 g/dL Normal 28.4-34.8 [facility] Comment on above: Performed By: #### L ACDS, TROPI, PRCAL, MYCM #### [address] [address] MCV Entitic volume (RBC) 92.7 fL Normal 82.6-102.9 [facility] Comment on above: Performed By: #### L ACDS, TROPI, PRCAL, MYCM #### [address] [address] NRBC Automated 0.3 per 100 WBC High 0.0 [facility] Comment on above: Performed By: #### L ACDS, TROPI, PRCAL, MYCM #### [address] [address] Platelet mean volume Entitic volume (Bld) 10.5 fL Normal 8.1-13.5 [facility] Comment on above: Performed By: #### L ACDS, TROPI, PRCAL, MYCM #### [address] [address] Platelets #/vol (Bld) 168 10*3/uL Normal 138-453 [facility] Comment on above: Performed By: #### L ACDS, TROPI, PRCAL, MYCM #### [address] [address] RBC #/vol (Bld) 3.71 10*6/uL Low 3.95-5.11 [facility] Comment on above: Performed By: #### L ACDS, TROPI, PRCAL, MYCM #### [address] [address] WBC #/vol (Bld) 6.0 10*3/uL Normal 3.5-11.3 [facility] Comment on above: Performed By: #### L ACDS, TROPI, PRCAL, MYCM #### [address] [address] Auto Diff Performed NOT REPORTED Normal [facility] Comment on above: Performed By: #### L ACDS, TROPI, PRCAL, MYCM #### [facility] [employer] [address] [place] [address] Platelets #/vol (Bld) NOT REPORTED Normal [facility] Comment on above: Performed By: #### L ACDS, TROPI, PRCAL, MYCM #### [facility] [employer] [address] [place] [address] 14981 RBC morphology finding Nom (Bld) NOT REPORTED Normal [facility] Comment on above: Performed By: #### L ACDS, TROPI, PRCAL, MYCM #### [facility] [employer] [address] [place] [address] WBC Morphology NOT REPORTED Normal [facility] Comment on above: Performed By: #### L ACDS, TROPI, PRCAL, MYCM #### [address] [address] Comp Metabolic Pr/rfx MGon 1 10-19-2017 (cont.) Normal [facility] Comment on above: Result Comment: Aver age GFR for 30-39 years old: 107 mL/min/1.73sq m Chronic Kidney Disease: <60 mL/min/1.73sq m Kidney failure: <15 mL/min/1.73sq m eGFR calculated using average adult body mass. Additional eGFR calculator available at: http://www.Joognu.com/multiple_crcl_2012.htm Performed By: #### L ACDS, TROPI, PRCAL, MYCM #### [facility] [employer] [address] [place] [address] Albumin mass conc 2.7 g/dL Low 3.5-5.2 [facility] Comment on above: Performed By: #### L ACDS, TROPI, PRCAL, MYCM #### [facility] [employer] [address] [place] [address] Albumin/Globulin mass ratio 0.8 {ratio} Low 1.0-2.5 [facility] Comment on above: Performed By: #### L ACDS, TROPI, PRCAL, MYCM #### [facility] [employer] [address] [place] [address] Alkaline Phos 78 U/L Normal 35-104 [facility] Comment on above: Performed By: #### L ACDS, TROPI, PRCAL, MYCM #### [facility] [employer] [address] [place] [address]375 ALT enzyme act/vol 16 U/L Normal 5-33 [facility] Comment on above: Performed By: #### L ACDS, TROPI, PRCAL, MYCM #### [facility] [employer] [address] [place] [address] Anion gap molar conc 10 mmol/L Normal 9-17 [facility] Comment on above: Performed By: #### L ACDS, TROPI, PRCAL, MYCM #### [facility] [employer] [address] [place] [address] 49683 AST enzyme act/vol 16 U/L Normal <32 [facility] Comment on above: Performed By: #### L ACDS, TROPI, PRCAL, MYCM #### [facility] [employer] [address] [place] [address] Bilirubin Ql (U) 0.21 mg/dL Low 0.3-1.2 [facility] Comment on above: Performed By: #### L ACDS, TROPI, PRCAL, MYCM #### [facility] [employer] [address] [place] [address] Calcium mass conc 8.5 mg/dL Low 8.6-10.4 [facility] Comment on above: Performed By: #### L ACDS, TROPI, PRCAL, MYCM #### [facility] [employer] [address] [place] [address] Chloride molar conc 103 mmol/L Normal 98-107 [facility] Comment on above: Performed By: #### L ACDS, TROPI, PRCAL, MYCM #### [address] [address] CO2 molar conc 24 mmol/L Normal 20-31 [facility] Comment on above: Performed By: #### L ACDS, TROPI, PRCAL, MYCM #### [facility] [employer] [address] [place] [address] Creatinine mass conc 0.88 mg/dL Normal 0.50-0.90 [facility] Comment on above: Performed By: #### L ACDS, TROPI, PRCAL, MYCM #### [facility] [employer] [address] [place] [address] 28790 GFR, Amer >60 Normal >60 [facility] Comment on above: Performed By: #### L ACDS, TROPI, PRCAL, MYCM #### [facility] [employer] [address] [place] [address]2885 GFR,non Amer >60 Normal >60 [facility] Comment on above: Performed By: #### L ACDS, TROPI, PRCAL, MYCM #### [facility] [employer] [address] [place] [address] Glucose mass conc 104 mg/dL High 70-99 [facility] Comment on above: Performed By: #### L ACDS, TROPI, PRCAL, MYCM #### [facility] [employer] [address] [place] [address] 28891 Potassium molar conc 4.0 mmol/L Normal 3.7-5.3 [facility] Comment on above: Performed By: #### L ACDS, TROPI, PRCAL, MYCM #### [facility] [employer] [address] [place] [address]14 Protein mass conc 6.3 g/dL Low 6.4-8.3 [facility] Comment on above: Performed By: #### L ACDS, TROPI, PRCAL, MYCM #### [facility] [place] [address] Sodium molar conc 137 mmol/L Normal 135-144 [facility] Comment on above: Performed By: #### L ACDS, TROPI, PRCAL, MYCM #### [facility] [address] [place] [address] 88371 Urea nitrogen mass conc 16 mg/dL Normal -20 [facility] Comment on above: Performed By: #### L ACDS, TROPI, PRCAL, MYCM #### [facility] [employer] [address] [place] [address] 21529 BUN/CRE Ratio NOT REPORTED Normal - [facility] Comment on above: Performed By: #### L ACDS, TROPI, PRCAL, MYCM #### [facility] [address] [place] [address] Staging: NOT REPORTED Normal [facility] Comment on above: Performed By: #### L ACDS, TROPI, PRCAL, MYCM #### [facility] [employer] [address] [place] [address] Cult, Bloodon 08-19-2018 Cult, Blood Specimen Description [...] Trimethoprim/Sulfa <=10 SUSCEPTIBLE Vancomycin 1 SUSCEPTIBLE Normal [facility] Comment on above: Performed By: #### L ACDS, TROPI, PRCAL, MYCM #### [facility] [address] [place] [address] MRI CERVICAL SPINE W WO CONT JAVONTon [...] Bo Rodrigues MD 08/19/18 Final result Normal [facility] MRI LUMBAR SPINE W WO CONTRA STon [...] Bo Rodrigues MD 08/19/18 Final result Normal [facility] MRI THORACIC SPINE W WO CONT Arianna [...] Bo Rodrigues MD 08/19/18 Final result Normal [facility] Magnesiumon 08-19-2018 Magnesium mass conc 2.3 mg/dL Normal 1.6-2.6 [facility] Comment on above: Performed By: #### L ACDS, TROPI, PRCAL, MYCM #### [facility] [place] [address] Procalcitoninon 08-19-2018 Protein mass conc 0.57 ng/mL High <0.09 [facility] Comment on above: Result Comment: Suspected [...] entered into the Change in Procalcitonin Calculator (www.rvudub-xih-wehohqvogf.com) to determine the patient's Mortality Risk Prognosis Performed By: #### L ACDS, TROPI, PRCAL, MYCM #### [facility] [address] [place] [address] CBC with Diffon 08-18-2018 Abs. Basophil <0.03 Normal 0.00-0.20 [facility] Comment on above: Performed By: #### L ACDS, TROPI, PRCAL, MYCM #### [facility] [address] [place], [place] [id number] Abs.Imm.Granulocyte 0.28 k/uL Normal 0.00-0.30 [facility] Comment on above: Performed By: #### L ACDS, TROPI, PRCAL, MYCM #### [address] [address] Abs.Neutrophil (Seg) 3.23 k/uL Normal 1.50-8.10 [facility] Comment on above: Performed By: #### L ACDS, TROPI, PRCAL, MYCM #### [facility] [employer] [address] [place] [address] Basophils/100 WBC (Bld) 0 % Normal 0-2 [facility] Comment on above: Performed By: #### L ACDS, TROPI, PRCAL, MYCM #### [facility] [employer] [address] [place] [address] Eosinophils #/vol (Bld) 0.15 10*3/uL Normal 0.00-0.44 [facility] Comment on above: Performed By: #### L ACDS, TROPI, PRCAL, MYCM #### [facility] [employer] [address] [place] [address] Eosinophils/100 WBC (Bld) 3 % Normal 1-4 [facility] Comment on above: Performed By: #### L ACDS, TROPI, PRCAL, MYCM #### [facility] [employer] [address] [place] [address]32 Erythrocyte distribution width Ratio (RBC) 14.7 % High 11.8-14.4 [facility] Comment on above: Performed By: #### L ACDS, TROPI, PRCAL, MYCM #### [facility] [employer] [address] [place] [address]20 Hematocrit Volume Fraction (Bld) 32.7 % Low 36.3-47.1 [facility] Comment on above: Performed By: #### L ACDS, TROPI, PRCAL, MYCM #### [address] [address] Hemoglobin mass conc (Bld) 10.1 g/dL Low 11.9-15.1 [facility] Comment on above: Performed By: #### L ACDS, TROPI, PRCAL, MYCM #### [address] [address] Immature granulocytes #/vol (Bld) 5 % High 0 [facility] Comment on above: Performed By: #### L ACDS, TROPI, PRCAL, MYCM #### [address] [address] Lymphocytes #/vol (Bld) 1.58 10*3/uL Normal 1.10-3.70 [facility] Comment on above: Performed By: #### L ACDS, TROPI, PRCAL, MYCM #### [address] [address] Lymphocytes/100 WBC (Bld) 28 % Normal 24-43 [facility] Comment on above: Performed By: #### L ACDS, TROPI, PRCAL, MYCM #### [address] [address] MCH Entitic mass (RBC) 28.2 pg Normal 25.2-33.5 [facility] Comment on above: Performed By: #### L ACDS, TROPI, PRCAL, MYCM #### [address] [address] MCHC mass conc (RBC) 30.9 g/dL Normal 28.4-34.8 [facility] Comment on above: Performed By: #### L ACDS, TROPI, PRCAL, MYCM #### [address] [address] MCV Entitic volume (RBC) 91.3 fL Normal 82.6-102.9 [facility] Comment on above: Performed By: #### L ACDS, TROPI, PRCAL, MYCM #### [address] [address] Monocytes #/vol (Bld) 0.47 10*3/uL Normal 0.10-1.20 [facility] Comment on above: Performed By: #### L ACDS, TROPI, PRCAL, MYCM #### [address] [address] Monocytes/100 WBC (Bld) 8 % Normal 3-12 [facility] Comment on above: Performed By: #### L ACDS, TROPI, PRCAL, MYCM #### [address] [address] Neutrophil (Seg) 56 % Normal 36-65 [facility] Comment on above: Performed By: #### L ACDS, TROPI, PRCAL, MYCM #### [address] [address] NRBC Automated 0.0 per 100 WBC Normal 0.0 [facility] Comment on above: Performed By: #### L ACDS, TROPI, PRCAL, MYCM #### [address] [address] Platelet mean volume Entitic volume (Bld) 11.4 fL Normal 8.1-13.5 [facility] Comment on above: Performed By: #### L ACDS, TROPI, PRCAL, MYCM #### [address] [address] Platelets #/vol (Bld) 153 10*3/uL Normal 138-453 Me [facility] Comment on above: Performed By: #### L ACDS, TROPI, PRCAL, MYCM #### [address] [place] [address] RBC #/vol (Bld) 3.58 10*6/uL Low 3.95-5.11 [facility] Comment on above: Performed By: #### L ACDS, TROPI, PRCAL, MYCM #### [facility] [employer] [address] [place] [address] RBC morphology finding Nom (Bld) ANISOCYTOSIS PRESENT Normal [facility] Comment on above: Performed By: #### L ACDS, TROPI, PRCAL, MYCM #### [facility] [employer] [address] [place] [address] WBC #/vol (Bld) 5.7 10*3/uL Normal 3.5-11.3 [facility] Comment on above: Performed By: #### L ACDS, TROPI, PRCAL, MYCM #### [facility] [employer] [address] [place] [address]647 Auto Diff Performed NOT REPORTED Normal [facility] Comment on above: Performed By: #### L ACDS, TROPI, PRCAL, MYCM #### [address] [address] Platelets #/vol (Bld) NOT REPORTED Normal [facility] Comment on above: Performed By: #### L ACDS, TROPI, PRCAL, MYCM #### [facility] [employer] [address] [place] [address] WBC Morphology NOT REPORTED Normal [facility] Comment on above: Performed By: #### L ACDS, TROPI, PRCAL, MYCM #### [facility] [employer] [address] [place] [address] Comp Metabolic Pr/rfx MGon 1 10-18-2017 (cont.) Normal [facility] Comment on above: Result Comment: Aver age GFR for 30-39 years old: 107 mL/min/1.73sq m Chronic Kidney Disease: <60 mL/min/1.73sq m Kidney failure: <15 mL/min/1.73sq m eGFR calculated using average adult body mass. Additional eGFR calculator available at: http://www.[employer]/multiple_crcl_2012.htm Performed By: #### L ACDS, TROPI, PRCAL, MYCM #### [facility] [address] [place] [address] Albumin mass conc 2.7 g/dL Low 3.5-5.2 [facility] Comment on above: Performed By: #### L ACDS, TROPI, PRCAL, MYCM #### [facility] [employer] [address] [place] [address] Albumin/Globulin mass ratio 0.8 {ratio} Low 1.0-2.5 [facility] Comment on above: Performed By: #### L ACDS, TROPI, PRCAL, MYCM #### [facility] [employer] [address] [place] [address] Alkaline Phos 82 U/L Normal 35-104 [facility] Comment on above: Performed By: #### L ACDS, TROPI, PRCAL, MYCM #### [facility] [employer] [address] [place] [address] ALT enzyme act/vol 19 U/L Normal 5-33 [facility] Comment on above: Performed By: #### L ACDS, TROPI, PRCAL, MYCM #### [facility] [employer] [address] [place] [address] Anion gap molar conc 8 mmol/L Low 9-17 [facility] Comment on above: Performed By: #### L ACDS, TROPI, PRCAL, MYCM #### [facility] [employer] [address] [place] [address] 49556 AST enzyme act/vol 17 U/L Normal <32 [facility] Comment on above: Performed By: #### L ACDS, TROPI, PRCAL, MYCM #### [facility] [employer] [address] [place] [address] Bilirubin Ql (U) 0.24 mg/dL Low 0.3-1.2 [facility] Comment on above: Performed By: #### L ACDS, TROPI, PRCAL, MYCM #### [facility] [employer] [address] [place] [address] Calcium mass conc 8.2 mg/dL Low 8.6-10.4 [facility] Comment on above: Performed By: #### L ACDS, TROPI, PRCAL, MYCM #### [facility] [employer] [address] [place] [address] Chloride molar conc 103 mmol/L Normal 98-107 [facility] Comment on above: Performed By: #### L ACDS, TROPI, PRCAL, MYCM #### [facility] [employer] [address] [place] [address] CO2 molar conc 25 mmol/L Normal 20-31 [facility] Comment on above: Performed By: #### L ACDS, TROPI, PRCAL, MYCM #### [facility] [employer] [address] [place] [address] Creatinine mass conc 0.94 mg/dL High 0.50-0.90 [facility] Comment on above: Performed By: #### L ACDS, TROPI, PRCAL, MYCM #### [facility] [employer] [address] [place] [address] GFR, Amer >60 Normal >60 [facility] Comment on above: Performed By: #### L ACDS, TROPI, PRCAL, MYCM #### [facility] [employer] [address] [place] [address] GFR,non Amer >60 Normal >60 [facility] Comment on above: Performed By: #### L ACDS, TROPI, PRCAL, MYCM #### [facility] [employer] [address] [place] [address]48 Glucose mass conc 107 mg/dL High 70-99 [facility] Comment on above: Performed By: #### L ACDS, TROPI, PRCAL, MYCM #### [facility] [employer] [address] [place] [address] Potassium molar conc 4.1 mmol/L Normal 3.7-5.3 [facility] Comment on above: Performed By: #### L ACDS, TROPI, PRCAL, MYCM #### [facility] [employer] [address] [place] [address] Protein mass conc 6.2 g/dL Low 6.4-8.3 [facility] Comment on above: Performed By: #### L ACDS, TROPI, PRCAL, MYCM #### [facility] [employer] [address] [place] [address] Sodium molar conc 136 mmol/L Normal 135-144 [facility] Comment on above: Performed By: #### L ACDS, TROPI, PRCAL, MYCM #### [facility] [employer] [address] [place] [address]8782 Urea nitrogen mass conc 14 mg/dL Normal 6-20 [facility] Comment on above: Performed By: #### L ACDS, TROPI, PRCAL, MYCM #### [facility] [address] [place] [address] BUN/CRE Ratio NOT REPORTED Normal 9-20 [facility] Comment on above: Performed By: #### L ACDS, TROPI, PRCAL, MYCM #### [facility] [address] [place] [address] Staging: NOT REPORTED Normal [facility] Comment on above: Performed By: #### L ACDS, TROPI, PRCAL, MYCM #### [facility] [address] [place] [address] Magnesiumon 08-18-2018 Magnesium mass conc 2.3 mg/dL Normal 1.6-2.6 [facility] Comment on above: Performed By: #### L ACDS, TROPI, PRCAL, MYCM #### [facility] [address] [place] [address]21 Vancomycin Troughon 08-18-20 18 Vancomycin Trough 14.7 ug/mL Normal 10.0-20.0 [facility] Comment on above: Result Comment: High er trough serum vancomycin concentrations of 15-20 ug/mL are recommended for complicated infections such as bacteremia, endocarditis, osteomyelitis, meningitis, and hospital acquired pneumonia. Performed By: #### L ACDS, TROPI, PRCAL, MYCM #### [facility] [address] [place] [address] 60068 Date last dose, NOT REPORTED Normal [facility] Comment on above: Performed By: #### L ACDS, TROPI, PRCAL, MYCM #### [facility] [address] [place] [address]89 Dose amount, NOT REPORTED Normal [facility] Comment on above: Performed By: #### L ACDS, TROPI, PRCAL, MYCM #### [facility] [address] [place] [address] 36543 Time last dose, NOT REPORTED Normal [facility] Comment on above: Performed By: #### L ACDS, TROPI, PRCAL, MYCM #### [facility] [address] [place] [address] C-Reactive Proteinon 018 CRP mass conc 188.1 mg/L High 0.0-5.0 [facility] Comment on above: Performed By: #### L ACDS, TROPI, PRCAL, MYCM #### [address] [address] CBC with Diffon 08-17-2018 Abs. Basophil 0.00 k/uL Normal 0.0-0.2 [facility] Comment on above: Performed By: #### L ACDS, TROPI, PRCAL, MYCM #### [address] [address] Abs.Imm.Granulocyte 0.13 k/uL Normal 0.00-0.30 [facility] Comment on above: Performed By: #### L ACDS, TROPI, PRCAL, MYCM #### [address] [address] Abs.Neutrophil (Seg) 4.35 k/uL Normal 1.8-7.7 [facility] Comment on above: Performed By: #### L ACDS, TROPI, PRCAL, MYCM #### [address] [address] Basophils/100 WBC (Bld) 0 % Normal 0-2 [facility] Comment on above: Performed By: #### L ACDS, TROPI, PRCAL, MYCM #### [address] [address] Eosinophils #/vol (Bld) 0.06 10*3/uL Normal 0.0-0.4 [facility] Comment on above: Performed By: #### L ACDS, TROPI, PRCAL, MYCM #### [address] [address] Eosinophils/100 WBC (Bld) 1 % Normal 1-4 [facility] Comment on above: Performed By: #### L ACDS, TROPI, PRCAL, MYCM #### [address] [address] Immature granulocytes #/vol (Bld) 2 % High 0 [facility] Comment on above: Performed By: #### L ACDS, TROPI, PRCAL, MYCM #### [address] [address] Lymphocytes #/vol (Bld) 1.32 10*3/uL Normal 1.0-4.8 [facility] Comment on above: Performed By: #### L ACDS, TROPI, PRCAL, MYCM #### [facility] [employer] [address] [place] [address] Lymphocytes/100 WBC (Bld) 21 % Low 24-44 [facility] Comment on above: Performed By: #### L ACDS, TROPI, PRCAL, MYCM #### [address] [address] Monocytes #/vol (Bld) 0.44 10*3/uL Normal 0.1-0.8 [facility] Comment on above: Performed By: #### L ACDS, TROPI, PRCAL, MYCM #### [address] [address] Monocytes/100 WBC (Bld) 7 % Normal 1-7 [facility] Comment on above: Performed By: #### L ACDS, TROPI, PRCAL, MYCM #### [address] [address] Morphology Interp Rehan (Bld) ANISOCYTOSIS PRESENT Normal [facility] Comment on above: Result Comment: INCR EASED BANDS PRESENT 1+ TEARDROPS Performed By: #### L ACDS, TROPI, PRCAL, MYCM #### [facility] [employer] [address] [place] [address] Neutrophil (Seg) 69 % High 36-66 [facility] Comment on above: Performed By: #### L ACDS, TROPI, PRCAL, MYCM #### [facility] [address] [place] [address]46 Erythrocyte distribution width Ratio (RBC) 14.8 % High 11.8-14.4 [facility] Comment on above: Performed By: #### L ACDS, TROPI, PRCAL, MYCM #### [address] [address] Hematocrit Volume Fraction (Bld) 33.3 % Low 36.3-47.1 [facility] Comment on above: Performed By: #### L ACDS, TROPI, PRCAL, MYCM #### [facility] [employer] [address] [place] [address] Hemoglobin mass conc (Bld) 10.2 g/dL Low 11.9-15.1 [facility] Comment on above: Performed By: #### L ACDS, TROPI, PRCAL, MYCM #### [address] [address] MCH Entitic mass (RBC) 28.3 pg Normal 25.2-33.5 [facility] Comment on above: Performed By: #### L ACDS, TROPI, PRCAL, MYCM #### [facility] [employer] [address] [place] [address] MCHC mass conc (RBC) 30.6 g/dL Normal 28.4-34.8 [facility] Comment on above: Performed By: #### L ACDS, TROPI, PRCAL, MYCM #### [facility] [employer] [address] [place] [address]75 MCV Entitic volume (RBC) 92.2 fL Normal 82.6-102.9 [facility] Comment on above: Performed By: #### L ACDS, TROPI, PRCAL, MYCM #### [facility] [employer] [address] [place] [address] NRBC Automated 0.0 per 100 WBC Normal 0.0 [facility] Comment on above: Performed By: #### L ACDS, TROPI, PRCAL, MYCM #### [address] [address] Platelet mean volume Entitic volume (Bld) 11.5 fL Normal 8.1-13.5 [facility] Comment on above: Performed By: #### L ACDS, TROPI, PRCAL, MYCM #### [address] [address] Platelets #/vol (Bld) 149 10*3/uL Normal 138-453 Me [facility] Comment on above: Performed By: #### L ACDS, TROPI, PRCAL, MYCM #### [address] [address] RBC #/vol (Bld) 3.61 10*6/uL Low 3.95-5.11 [facility] Comment on above: Performed By: #### L ACDS, TROPI, PRCAL, MYCM #### [address] [address] WBC #/vol (Bld) 6.3 10*3/uL Normal 3.5-11.3 [facility] Comment on above: Performed By: #### L ACDS, TROPI, PRCAL, MYCM #### [address] [address] Auto Diff Performed NOT REPORTED Normal [facility] Comment on above: Performed By: #### L ACDS, TROPI, PRCAL, MYCM #### [address] [address] Platelets #/vol (Bld) NOT REPORTED Normal [facility] Comment on above: Performed By: #### L ACDS, TROPI, PRCAL, MYCM #### [address] [place] [address] RBC morphology finding Nom (Bld) NOT REPORTED Normal [facility] Comment on above: Performed By: #### L ACDS, TROPI, PRCAL, MYCM #### [facility] [place] [address] WBC Morphology NOT REPORTED Normal [facility] Comment on above: Performed By: #### L ACDS, TROPI, PRCAL, MYCM #### [facility] [address] [place] [address]22 Comp Metabolic Pr/rfx MGon 1 10-17-2017 (cont.) Normal [facility] Comment on above: Result Comment: Aver age GFR for 30-39 years old: 107 mL/min/1.73sq m Chronic Kidney Disease: <60 mL/min/1.73sq m Kidney failure: <15 mL/min/1.73sq m eGFR calculated using average adult body mass. Additional eGFR calculator available at: http://www.[employer]/multiple_crcl_2012.htm Performed By: #### L ACDS, TROPI, PRCAL, MYCM #### [facility] [employer] [address] [place] [address]1138 Albumin mass conc 2.4 g/dL Low 3.5-5.2 [facility] Comment on above: Performed By: #### L ACDS, TROPI, PRCAL, MYCM #### [facility] [address] [place] [address] 17573 Albumin/Globulin mass ratio 0.7 {ratio} Low 1.0-2.5 [facility] Comment on above: Performed By: #### L ACDS, TROPI, PRCAL, MYCM #### [facility] [address] [place] [address] 42031 Alkaline Phos 76 U/L Normal 35-104 [facility] Comment on above: Performed By: #### L ACDS, TROPI, PRCAL, MYCM #### [facility] [employer] [address] [place] [address] 26027 ALT enzyme act/vol 25 U/L Normal 5-33 [facility] Comment on above: Performed By: #### L ACDS, TROPI, PRCAL, MYCM #### [facility] [employer] [address] [place] [address] 39371 Anion gap molar conc 8 mmol/L Low 9-17 [facility] Comment on above: Performed By: #### L ACDS, TROPI, PRCAL, MYCM #### [facility] [employer] [address] [place] [address] 88983 AST enzyme act/vol 26 U/L Normal <32 [facility] Comment on above: Performed By: #### L ACDS, TROPI, PRCAL, MYCM #### [facility] [employer] [address] [place] [address] 01429 Bilirubin Ql (U) 0.34 mg/dL Normal 0.3-1.2 [facility] Comment on above: Performed By: #### L ACDS, TROPI, PRCAL, MYCM #### [facility] [employer] [address] [place] [address]379 Calcium mass conc 7.8 mg/dL Low 8.6-10.4 [facility] Comment on above: Performed By: #### L ACDS, TROPI, PRCAL, MYCM #### [facility] [employer] [address] [place] [address] 66762 Chloride molar conc 99 mmol/L Normal 98-107 [facility] Comment on above: Performed By: #### L ACDS, TROPI, PRCAL, MYCM #### [facility] [address] [place] [address] 12224 CO2 molar conc 23 mmol/L Normal 20-31 [facility] Comment on above: Performed By: #### L ACDS, TROPI, PRCAL, MYCM #### [facility] [employer] [address] [place] [address] 98631 Creatinine mass conc 1.04 mg/dL High 0.50-0.90 [facility] Comment on above: Performed By: #### L ACDS, TROPI, PRCAL, MYCM #### [facility] [employer] [address] [place] [address] 01642 GFR, Amer >60 Normal >60 [facility] Comment on above: Performed By: #### L ACDS, TROPI, PRCAL, MYCM #### [facility] [employer] [address] [place] [address] 71812 GFR,non Amer 59 mL/min Low >60 [facility] Comment on above: Performed By: #### L ACDS, TROPI, PRCAL, MYCM #### [facility] [employer] [address] [place] [address] 87798 Glucose mass conc 109 mg/dL High 70-99 [facility] Comment on above: Performed By: #### L ACDS, TROPI, PRCAL, MYCM #### [facility] [employer] [address] [place] [address] 31419 Potassium molar conc 3.8 mmol/L Normal 3.7-5.3 [facility] Comment on above: Performed By: #### L ACDS, TROPI, PRCAL, MYCM #### [facility] [employer] [address] [place] [address] 04580 Protein mass conc 5.8 g/dL Low 6.4-8.3 [facility] Comment on above: Performed By: #### L ACDS, TROPI, PRCAL, MYCM #### [facility] [employer] [address] [place] [address] 92043 Sodium molar conc 130 mmol/L Low 135-144 [facility] Comment on above: Performed By: #### L ACDS, TROPI, PRCAL, MYCM #### [facility] [employer] [address] [place] [address] Urea nitrogen mass conc 15 mg/dL Normal -20 [facility] Comment on above: Performed By: #### L ACDS, TROPI, PRCAL, MYCM #### [facility] [address] [place] [address] 24731 BUN/CRE Ratio NOT REPORTED Normal - [facility] Comment on above: Performed By: #### L ACDS, TROPI, PRCAL, MYCM #### [facility] [employer] [address] [place] [address] 72821 Staging: NOT REPORTED Normal [facility] Comment on above: Performed By: #### L ACDS, TROPI, PRCAL, MYCM #### [facility] [address] [place] [address] 67727 Magnesiumon 08-17-2018 Magnesium mass conc 2.2 mg/dL Normal 1.6-2.6 [facility] Comment on above: Performed By: #### L ACDS, TROPI, PRCAL, MYCM #### [facility] [address] [place] [address] 96565 Procalcitoninon 08-17-2018 Protein mass conc 1.48 ng/mL High <0.09 [facility] Comment on above: Result Comment: Suspected [...] entered into the Change in Procalcitonin Calculator ([email or web address]-svm-[email or web address]) to determine the patient's Mortality Risk Prognosis Performed By: #### L ACDS, TROPI, PRCAL, MYCM #### [address] [address] Sedimentation Rateon 018 Sedimentation Rate 97 mm High 0-20 [facility] Comment on above: Performed By: #### L ACDS, TROPI, PRCAL, MYCM #### [address] [address] CBC with Diffon 08-16-2018 Abs. Basophil 0.00 k/uL Normal 0.00-0.20 [facility] Comment on above: Performed By: #### L ACDS, TROPI, PRCAL, MYCM #### [address] [address] Abs.Imm.Granulocyte 0.11 k/uL Normal 0.00-0.30 [facility] Comment on above: Performed By: #### L ACDS, TROPI, PRCAL, MYCM #### [address] [address] Abs.Neutrophil (Seg) 4.60 k/uL Normal 1.50-8.10 [facility] Comment on above: Performed By: #### L ACDS, TROPI, PRCAL, MYCM #### [facility] [employer] [address] [place] [address] 57412 Basophils/100 WBC (Bld) 0 % Normal 0-2 [facility] Comment on above: Performed By: #### L ACDS, TROPI, PRCAL, MYCM #### [address] [address] Eosinophils #/vol (Bld) 0.00 10*3/uL Normal 0.00-0.44 [facility] Comment on above: Performed By: #### L ACDS, TROPI, PRCAL, MYCM #### [address] [address] Eosinophils/100 WBC (Bld) 0 % Low 1-4 [facility] Comment on above: Performed By: #### L ACDS, TROPI, PRCAL, MYCM #### [address] [address] Immature granulocytes #/vol (Bld) 2 % High 0 [facility] Comment on above: Performed By: #### L ACDS, TROPI, PRCAL, MYCM #### [address] [address] Lymphocytes #/vol (Bld) 0.67 10*3/uL Low 1.10-3.70 [facility] Comment on above: Performed By: #### L ACDS, TROPI, PRCAL, MYCM #### [address] [address] Lymphocytes/100 WBC (Bld) 12 % Low 24-43 [facility] Comment on above: Performed By: #### L ACDS, TROPI, PRCAL, MYCM #### [address] [address] Monocytes #/vol (Bld) 0.22 10*3/uL Normal 0.10-1.20 [facility] Comment on above: Performed By: #### L ACDS, TROPI, PRCAL, MYCM #### [address] [address] Monocytes/100 WBC (Bld) 4 % Normal 3-12 [facility] Comment on above: Performed By: #### L ACDS, TROPI, PRCAL, MYCM #### [address] [address] Morphology Interp Rehan (Bld) ANISOCYTOSIS PRESENT Normal [facility] Comment on above: Result Comment: INCR EASED BANDS PRESENT 1+ TEARDROPS Performed By: #### L ACDS, TROPI, PRCAL, MYCM #### [address] [address] Neutrophil (Seg) 82 % High 36-65 [facility] Comment on above: Performed By: #### L ACDS, TROPI, PRCAL, MYCM #### [address] [address] Erythrocyte distribution width Ratio (RBC) 15.1 % High 11.8-14.4 [facility] Comment on above: Performed By: #### L ACDS, TROPI, PRCAL, MYCM #### [address] [address] Hematocrit Volume Fraction (Bld) 34.1 % Low 36.3-47.1 [facility] Comment on above: Performed By: #### L ACDS, TROPI, PRCAL, MYCM #### [address] [address] Hemoglobin mass conc (Bld) 10.0 g/dL Low 11.9-15.1 [facility] Comment on above: Performed By: #### L ACDS, TROPI, PRCAL, MYCM #### [address] [address] MCH Entitic mass (RBC) 28.7 pg Normal 25.2-33.5 [facility] Comment on above: Performed By: #### L ACDS, TROPI, PRCAL, MYCM #### [address] [address] MCHC mass conc (RBC) 29.3 g/dL Normal 28.4-34.8 [facility] Comment on above: Performed By: #### L ACDS, TROPI, PRCAL, MYCM #### [address] [address] MCV Entitic volume (RBC) 98.0 fL Normal 82.6-102.9 [facility] Comment on above: Performed By: #### L ACDS, TROPI, PRCAL, MYCM #### [address] [address] NRBC Automated 0.0 per 100 WBC Normal 0.0 [facility] Comment on above: Performed By: #### L ACDS, TROPI, PRCAL, MYCM #### [address] [address] Platelet mean volume Entitic volume (Bld) 11.1 fL Normal 8.1-13.5 [facility] Comment on above: Performed By: #### L ACDS, TROPI, PRCAL, MYCM #### [address] [address] Platelets #/vol (Bld) 119 10*3/uL Low 138-453 [facility] Comment on above: Performed By: #### L ACDS, TROPI, PRCAL, MYCM #### [address] [address] RBC #/vol (Bld) 3.48 10*6/uL Low 3.95-5.11 [facility] Comment on above: Performed By: #### L ACDS, TROPI, PRCAL, MYCM #### [address] [address] WBC #/vol (Bld) 5.6 10*3/uL Normal 3.5-11.3 [facility] Comment on above: Performed By: #### L ACDS, TROPI, PRCAL, MYCM #### [facility] [address] [place] [address] Auto Diff Performed NOT REPORTED Normal [facility] Comment on above: Performed By: #### L ACDS, TROPI, PRCAL, MYCM #### [facility] [address] [place] [id number] Platelets #/vol (Bld) NOT REPORTED Normal [facility] Comment on above: Performed By: #### L ACDS, TROPI, PRCAL, MYCM #### [facility] [employer] [address] [place] [address] RBC morphology finding Nom (Bld) NOT REPORTED Normal [facility] Comment on above: Performed By: #### L ACDS, TROPI, PRCAL, MYCM #### [facility] [address] [place] [address] WBC Morphology NOT REPORTED Normal [facility] Comment on above: Performed By: #### L ACDS, TROPI, PRCAL, MYCM #### [facility] [employer] [address] [place] [address] HEAD WO CONTRASTon 2017 CT HEAD [...] Erica Angeles MD 08/16/18 Final result Normal [facility] Calcium, Ionicon 08-16-2018 Calcium mass conc 0.99 mmol/L Low 1.13-1.33 [facility] Comment on above: Performed By: #### L ACDS, TROPI, PRCAL, MYCM #### [facility] [employer] [address] [place] [address] Comp Metabolic Pr/rfx MGon 1 10-16-2017 (cont.) Normal [facility] Comment on above: Result Comment: Aver age GFR for 30-39 years old: 107 mL/min/1.73sq m Chronic Kidney Disease: <60 mL/min/1.73sq m Kidney failure: <15 mL/min/1.73sq m eGFR calculated using average adult body mass. Additional eGFR calculator available at: http://[email or web address]/multiple_crcl_2012.htm Performed By: #### P T, CMPX, MG, CDP #### [facility] [address] [place] [address] Albumin mass conc 2.3 g/dL Low 3.5-5.2 [facility] Comment on above: Performed By: #### P T, CMPX, MG, CDP #### [facility] [employer] [address] [place] [address] Albumin/Globulin mass ratio 0.7 {ratio} Low 1.0-2.5 [facility] Comment on above: Performed By: #### P T, CMPX, MG, CDP #### [facility] [address] [place] [address] Alkaline Phos 67 U/L Normal 35-104 [facility] Comment on above: Performed By: #### P T, CMPX, MG, CDP #### [facility] [address] [place] [address] ALT enzyme act/vol 33 U/L Normal 5-33 [facility] Comment on above: Performed By: #### P T, CMPX, MG, CDP #### [facility] [employer] [address] [place] [address] Anion gap molar conc 11 mmol/L Normal 9-17 [facility] Comment on above: Performed By: #### P T, CMPX, MG, CDP #### [facility] [employer] [address] [place] [address] AST enzyme act/vol 41 U/L High <32 [facility] Comment on above: Performed By: #### P T, CMPX, MG, CDP #### [facility] [employer] [address] [place] [address] Bilirubin Ql (U) 0.40 mg/dL Normal 0.3-1.2 [facility] Comment on above: Performed By: #### P T, CMPX, MG, CDP #### [facility] [employer] [address] [place] [address] Calcium mass conc 7.3 mg/dL Low 8.6-10.4 [facility] Comment on above: Performed By: #### P T, CMPX, MG, CDP #### [facility] [employer] [address] [place] [address] Chloride molar conc 105 mmol/L Normal 98-107 [facility] Comment on above: Performed By: #### P T, CMPX, MG, CDP #### [facility] [employer] [address] [place] [address] CO2 molar conc 18 mmol/L Low 20-31 [facility] Comment on above: Performed By: #### P T, CMPX, MG, CDP #### [facility] [employer] [address] [place] [address] Creatinine mass conc 1.09 mg/dL High 0.50-0.90 [facility] Comment on above: Performed By: #### P T, CMPX, MG, CDP #### [facility] [employer] [address] [place] [address] GFR, Amer >60 Normal >60 [facility] Comment on above: Performed By: #### P T, CMPX, MG, CDP #### [facility] [employer] [address] [place] [address] GFR,non Amer 56 mL/min Low >60 [facility] Comment on above: Performed By: #### P T, CMPX, MG, CDP #### [facility] [employer] [address] [place] [address] Glucose mass conc 128 mg/dL High 70-99 [facility] Comment on above: Performed By: #### P T, CMPX, MG, CDP #### [facility] [employer] [address] [place] [address] Potassium molar conc 3.6 mmol/L Low 3.7-5.3 [facility] Comment on above: Performed By: #### P T, CMPX, MG, CDP #### [facility] [employer] [address] [place] [address] Protein mass conc 5.5 g/dL Low 6.4-8.3 [facility] Comment on above: Performed By: #### P T, CMPX, MG, CDP #### [facility] [employer] [address] [place] [address] Sodium molar conc 134 mmol/L Low 135-144 [facility] Comment on above: Performed By: #### P T, CMPX, MG, CDP #### [facility] [employer] [address] [place] [address] Urea nitrogen mass conc 17 mg/dL Normal 6-20 [facility] Comment on above: Performed By: #### P T, CMPX, MG, CDP #### [facility] [employer] [address] [place] [address] BUN/CRE Ratio NOT REPORTED Normal 06-24 [facility] Comment on above: Performed By: #### P T, CMPX, MG, CDP #### [facility] [employer] [address] [place] [address] Staging: NOT REPORTED Normal [facility] Comment on above: Performed By: #### P T, CMPX, MG, CDP #### [facility] [employer] [address] [place] [address] Lactic Acid,Whole Blon 08-16 Lactic Acid,Whole Bl 1.2 mmol/L Normal 0.7-2.1 [facility] Comment on above: Performed By: #### L ACDS, TROPI, PRCAL, MYCM #### [facility] [employer] [address] [place] [address] Lactic Acid,Whole Bl 1.2 mmol/L Normal 0.7-2.1 [facility] Comment on above: Performed By: #### L ACWB #### [address] [address] Magnesiumon 08-16-2018 Magnesium mass conc 2.0 mg/dL Normal 1.6-2.6 [facility] Comment on above: Performed By: #### L ACDS, TROPI, PRCAL, MYCM #### [facility] [employer] [address] [place] [address] Mycoplasma Ab,IgMon 08-16-20 18 Mycoplasma Ab,IgM 0.22 Normal <0.91 [facility] Comment on above: Result Comment: Reference Range: <=0.90 Negative 0.91-1.09 Equivocal >=1.10 Positive Performed By: #### L ACDS, TROPI, PRCAL, MYCM #### [facility] [employer] [address] [place] [address] [phone] PTon 08-16-2018 INR Coag RelTime (PPP) 1.0 {INR} Normal [facility] Comment on above: Result Comment: Therapeutic Range: Moderate Anticoagulant Intensity: INR = 2.0-3.0 High Anticoagulant Intensity: INR = 2.5-3.5 Performed By: #### P T, CMPX, MG, CDP #### [facility] [employer] [address] [place] [address] [phone] Prothrombin time (PT) Coag time (PPP) 11.0 s Normal 9.0-12.0 [facility] Comment on above: Performed By: #### P T, CMPX, MG, CDP #### [facility] [employer] [address] [place] [address] [phone] Troponinon 08-16-2018 Troponin I.cardiac mass conc Normal [facility] Comment on above: Result Comment: Refe rence [...] diagnosis. Performed By: #### T ROPI #### [address] [phone] Troponin I.cardiac mass conc ng/mL Normal <0.03 [facility] Comment on above: Result Comment: Trop onin T results cannot be compared to Troponin-I results. Performed By: #### T ROPI #### [address] [phone] XR CHEST (2 VW)on 08-16-2018 XR CHEST [...] Noe Mitchell MD 08/16/18 Final result Normal [facility] Lactate, Sepsison 08-15-2018 Lactic Acid,Sep Wbld 3.5 mmol/L High 0.5-1.9 [facility] Comment on above: Performed By: #### L ACDS, TROPI, PRCAL, MYCM #### [address] [phone] Lactic Acid, Sepsis NOT REPORTED Normal 0.5-1.9 [facility] Comment on above: Performed By: #### L ACDS, TROPI, PRCAL, MYCM #### [address] [phone] Legionella Ag, Uron 08-15-20 18 Legionella Ag, [...] this test. Report Status FINAL 08/15/2018 Normal [facility] Comment on above: Performed By: #### U LAG #### [address] [phone] Procalcitoninon 08-15-2018 Protein mass conc 3.39 ng/mL High <0.09 [facility] Comment on above: Result Comment: Suspected [...] entered into the Change in Procalcitonin Calculator ([email or web address]-tjjabvzwhe.[employer]) to determine the patient's Mortality Risk Prognosis Performed By: #### L ACDS, TROPI, PRCAL, MYCM #### [facility] [address] [place] [address] [phone] Strep pneum Ag,CSF/Uron 08-05 Strep pneum Ag,CSF/Ur Specimen Descripti on .CLEAN CATCH URINE Special Requests NOT REPORTED Direct Exam NEGATIVE: Strep pneumoniae antigen not detected Report Status FINAL 08/15/2018 Normal [facility] Comment on above: Performed By: #### S PAG #### [facility] [address] [place] [address] Troponinon 08-15-2018 Troponin I.cardiac mass conc ng/mL Normal <0.03 [facility] Comment on above: Result Comment: Trop onin T results cannot be compared to Troponin-I results. Performed By: #### L ACDS, TROPI, PRCAL, MYCM #### [facility] [address] [place] [address] [phone] Troponin I.cardiac mass conc Normal [facility] Comment on above: Result Comment: Refe rence [...] #### L ACDS, TROPI, PRCAL, MYCM #### [facility] [address] [place] [address] Urinalysison 11-18-2017 Bilirubin, Urine Negative Invalid Interpretation Code NEG;NEGATIVE [facility] Blood, Urine Moderate Abnormal NEG;NEGATIVE [facility] Interpretation and review of laboratory results Abnormal Invalid Interpretation Code [facility] Nitrite, Urine Negative Invalid Interpretation Code NEG;NEGATIVE [facility] Protein, Urine Negative Invalid Interpretation Code NEG;NEGATIVE mg/dL [facility] RBCs, Urine 1 /HPF Invalid Interpretation Code 0 - 5 [facility] Squamous Epithelial < 1 Invalid Interpretation Code 0 - 40 /HPF [facility] Urine, bacteria in sediment Rare Invalid Interpretation Code NS;RARE /HPF [facility] Urine, character Hazy Invalid Interpretation Code [facility] Urine, color Yellow Invalid Interpretation Code [facility] Urine, glucose presence Negative Invalid Interpretation Code NEG;NEGATIVE mg/dL [facility] Urine, ketones presence Negative Invalid Interpretation Code NEG;NEGATIVE mg/dL [facility] Urine, leukocyte esterase presence Small Abnormal Negative [facility] Urine, pH 6.0 [pH] Invalid Interpretation Code 4.5 - 8.0 [facility] Urine, specific gravity 1.014 1 Invalid Interpretation Code 1.003 - 1.029 [facility] Urobilinogen, Urine < 2.0 Invalid Interpretation Code <2 mg/dL [facility] WBCs, Urine 6 /HPF High 0 - 5 [facility] CBC and Differentialon 11-17 Basophils 0.7 % Invalid Interpretation Code [facility] Basophils 0.1 K/mcL Invalid Interpretation Code 0 - 0.2 [facility] Eosinophils 0.2 K/mcL Invalid Interpretation Code 0 - 0.5 [facility] Erythrocytes (RBC) 3.97 M/mcL Invalid Interpretation Code 3.7 - 5.0 [facility] Hematocrit (HCT) 35.7 % Invalid Interpretation Code 34.4 - 44.8 % [facility] Hemoglobin (HGB) 12.2 g/dL Invalid Interpretation Code 11.6 - 15.4 g/dL [facility] Interpretation and review of laboratory results Abnormal Invalid Interpretation Code [facility] Lymphocytes 2.1 K/mcL Invalid Interpretation Code 1.0 - 3.7 [facility] MCH 30.6 pg Invalid Interpretation Code 27.9 - 33.9 pg [facility] MCHC 34.0 g/dL Invalid Interpretation Code 33.1 - 35.1 g/dL [facility] MCV 89.8 fL Invalid Interpretation Code 82.6 - 98.9 [facility] Monocytes 0.6 K/mcL Invalid Interpretation Code 0.1 - 0.6 [facility] Neutrophils 6.6 K/mcL Invalid Interpretation Code 1.2 - 6.9 [facility] Platelet mean volume (PMV) 8.6 fL Invalid Interpretation Code 7.0 - 10.6 [facility] Platelets 196 K/mcL Invalid Interpretation Code 162 - 402 [facility] RDW-CA 15.0 % High 10 - 14.4 % [facility] Segmented Neut 69.6 % Invalid Interpretation Code [facility] T8 suppressor/100 cells 1.8 10*3/uL Invalid Interpretation Code [facility] T8 suppressor/100 cells 21.8 10*3/uL Invalid Interpretation Code [facility] T8 suppressor/100 cells 6.1 10*3/uL Invalid Interpretation Code [facility] WBC (Leukocytes) 9.5 K/mcL Invalid Interpretation Code 3.4 - 10.6 [facility] Comprehensive Metabolic Pane ananda 11-17-2017 Alanine aminotransferase (ALT) 18 U/L Invalid Interpretation Code 14 - 65 U/L [facility] Albumin 3.1 g/dL Low 3.2 - 5.2 g/dL [facility] Alkaline phosphatase (ALP) 78 U/L Invalid Interpretation Code 40 - 140 U/L [facility] Aspartate aminotransferase (AST) 7 U/L Invalid Interpretation Code 0 - 45 U/L [facility] Calcium 8.6 mg/dL Invalid Interpretation Code 8.4 - 10.2 mg/dL [facility] Chloride 106 mmol/L Invalid Interpretation Code 98 - 108 mmol/L [facility] CO2 27 mmol/L Invalid Interpretation Code 21 - 32 mmol/L [facility] Creatinine 1.13 mg/dL High 0.4 - 1.1 mg/dL [facility] eGFR (black) mL/min/{1.73_m2} Invalid Interpretation Code ml/min/1.73sq .m [facility] eGFR (non-black) 54 mL/min/{1.73_m2} Low >60 [facility] Glucose 113 mg/dL High 70 - 99 mg/dL [facility] Interpretation and review of laboratory results Abnormal Invalid Interpretation Code [facility] Potassium 3.7 mmol/L Invalid Interpretation Code 3.5 - 5.1 mmol/L [facility] Protein 6.8 g/dL Invalid Interpretation Code 6 - 8 g/dL [facility] Sodium 140 mmol/L Invalid Interpretation Code 135 - 145 mmol/L [facility] Urea nitrogen 17 mg/dL Invalid Interpretation Code 8 - 25 mg/dL [facility] Urine, bilirubin presence 0.4 mg/dL Invalid Interpretation Code 0.3 - 1.2 mg/dL [facility] Lipaseon 11-17-2017 Lipase 167 U/L Invalid Interpretation Code 73 - 393 U/L [facility] Vital Signs Date Time Vital Sign Value Performing Clinician Yovani mclaughlin 05-24-2025 11:47-0400 Body height 157.5 cm Jennie [employer] Work Phone: [facility] 05-24-2025 11:47-0400 Body mass index (BMI) [Ratio] 38.41 kg/m2 [employer] Work Phone: [facility] 05-24-2025 11:47-0400 Body weight 95.25 kg Jennie [employer] Work Phone: [facility] 05-24-2025 11:47-0400 Diastolic blood pressure 80 mm[Hg] [employer]ie [employer] Work Phone: [facility] 05-24-2025 11:47-0400 Respiratory rate 18 /min [employer] Work Phone: [facility] 05-24-2025 11:47-0400 SaO2% (BldA) [Mass fraction] 98 % [employer] Work Phone: [facility] 05-24-2025 11:47-0400 Systolic blood pressure 120 mm[Hg] Jennie [employer] Work Phone: [facility] 04-20-2025 12:32-0400 Body height 157.5 cm Christopher Bohach DPM Work Phone: [facility] 04-20-2025 12:32-0400 Body mass index (BMI) [Ratio] 38.41 kg/m2 Christopher Bohach DPM Work Phone: [facility] 04-20-2025 12:32-0400 Body weight 95.25 kg Christopher Bohach DPM Work Phone: [facility] 04-20-2025 12:32-0400 Diastolic blood pressure 89 mm[Hg] Christopher Bohach DPM Work Phone: [facility] 04-20-2025 12:32-0400 Heart rate 101 /min Christopher Bohach DPM Work Phone: [facility] 04-20-2025 12:32-0400 Systolic blood pressure 128 mm[Hg] Christopher Bohach DPM Work Phone: [facility] 04-06-2025 16:21-0400 Body height 157.5 cm Christopher Bohach DPM Work Phone: [facility] 04-06-2025 16:21-0400 Body mass index (BMI) [Ratio] 38.41 kg/m2 Christopher Bohach DPM Work Phone: [facility] 04-06-2025 16:21-0400 Body weight 95.25 kg Christopher Bohach DPM Work Phone: [facility] 04-06-2025 16:21-0400 Diastolic blood pressure 80 mm[Hg] Christopher Bohach DPM Work Phone: [facility] 04-06-2025 16:21-0400 Heart rate 89 /min Christopher Bohach DPM Work Phone: [facility] 04-06-2025 16:21-0400 Systolic blood pressure 118 mm[Hg] Christopher Bohach DPM Work Phone: [facility] [employer] 04-04-2025 23:15-0400 Diastolic blood pressure 70 mm[Hg] Severo Case MD Work Phone: [facility] [employer] 04-04-2025 23:15-0400 Heart rate 74 /min [facility]o Case MD [facility] 04-04-2025 23:15-0400 Respiratory rate 16 /min Severo Case MD [facility] 04-04-2025 23:15-0400 SaO2% (BldA) [Mass fraction] 97 % Severo Case MD Work Phone: [facility] [employer] 04-04-2025 23:15-0400 Systolic blood pressure 122 mm[Hg] Severo Case MD [facility] 04-04-2025 21:24-0400 Body height 152.4 cm Severo Case MD [facility] 04-04-2025 21:24-0400 Body mass index (BMI) [Ratio] 41.99 kg/m2 Severo Case MD Work Phone: [facility] [employer] 04-04-2025 21:24-0400 Body weight 97.52 kg Severo Case MD Work Phone: [facility] [employer] 04-04-2025 21:15-0400 Body temperature 99 [degF] Severo Case MD Work Phone: [facility] [employer] 03-14-2025 12:02-0400 Body height 157.5 cm Lynn Block MD Work Phone: [facility] 03-14-2025 12:02-0400 Body mass index (BMI) [Ratio] 38.41 kg/m2 Lynn Block MD Work Phone: [facility] 03-14-2025 12:02-0400 Body weight 95.25 kg Lynn Block MD Work Phone: [facility] 12-06-2024 13:00-0500 Body height 157.5 cm Lynn Block MD Work Phone: [facility] 12-06-2024 13:00-0500 Body mass index (BMI) [Ratio] 38.41 kg/m2 Lynn Block MD Work Phone: [facility] 12-06-2024 13:00-0500 Body weight 95.25 kg Lynn Block MD Work Phone: [facility] 11-14-2024 11:31-0500 Body height 157.5 cm Fozia Meng [employer] Work Phone: [facility] 11-14-2024 11:31-0500 Body mass index (BMI) [Ratio] 37.9 kg/m2 Fozia Meng [employer] Work Phone: [facility] 11-14-2024 11:31-0500 Body weight 93.98 kg Fozia Eamongel [employer] Work Phone: [facility] 11-14-2024 11:31-0500 Diastolic blood pressure 80 mm[Hg] Fozia Eamongel [employer] Work Phone: [facility] 11-14-2024 11:31-0500 Systolic blood pressure 134 mm[Hg] Fozia Meng B[employer] TRAD[employer] Work Phone: [facility] 10-11-2024 09:42-0500 Body height 157.5 cm Sherman Adair MD Work Phone: [facility] 10-11-2024 09:42-0500 Body mass index (BMI) [Ratio] 38.23 kg/m2 Sherman Adair MD Work Phone: [facility] 10-11-2024 09:42-0500 Body temperature 98.29 [degF] Sherman Adair MD Work Phone: [facility] 10-11-2024 09:42-0500 Body weight 94.8 kg Sherman Adair MD Work Phone: [facility] 09-14-2024 11:30-0500 Body height 157.5 cm Fozia Meng B[employer] Work Phone: [facility] 09-14-2024 11:30-0500 Body mass index (BMI) [Ratio] 39.91 kg/m2 Fozia Knutsongel [employer] Work Phone: [facility] 09-14-2024 11:30-0500 Body weight 98.97 kg Fozia Knutsongel BOND TRADER Work Phone: [facility] 09-14-2024 11:30-0500 Diastolic blood pressure 70 mm[Hg] Fozia Knutsongel BOND TRADER Work Phone: [facility] 09-14-2024 11:30-0500 Systolic blood pressure 140 mm[Hg] Fozia Knutsongel BOND TRADER Work Phone: [facility] 06-10-2024 10:09-0400 Body height 157.5 cm Tiffanie Casas MD Work Phone: [facility] 06-10-2024 10:09-0400 Body mass index (BMI) [Ratio] 38.96 kg/m2 Tiffanie Casas MD Work Phone: [facility] 06-10-2024 10:09-0400 Body weight 96.62 kg Tiffanie Casas MD Work Phone: [facility] 06-10-2024 10:09-0400 Diastolic blood pressure 84 mm[Hg] Tiffanie Casas MD Work Phone: [facility] 06-10-2024 10:09-0400 Systolic blood pressure 132 mm[Hg] Tiffanie Casas MD Work Phone: [facility] 05-10-2024 14:20-0400 Body height 157.5 cm Cheryl Miles DO Work Phone: [facility] 05-10-2024 14:20-0400 Body mass index (BMI) [Ratio] 38.41 kg/m2 Cheryl Ginger DO Work Phone: [facility] 05-10-2024 14:20-0400 Body weight 95.25 kg Cheryl Ginger DO Work Phone: [facility] 05-10-2024 14:20-0400 Diastolic blood pressure 74 mm[Hg] Cheryl Ginger DO Work Phone: [facility] 05-10-2024 14:20-0400 Heart rate 83 /min Cheryl Ginger DO Work Phone: [facility] 05-10-2024 14:20-0400 SaO2% (BldA) [Mass fraction] 97 % Cheryl Ginger DO Work Phone: [facility] 05-10-2024 14:20-0400 Systolic blood pressure 118 mm[Hg] Cheryl Ginger DO Work Phone: [facility] 03-03-2023 14:44-0400 Body temperature 98.49 [degF] CJ Hassmann DPM Work Phone: [facility] 03-03-2023 14:44-0400 Diastolic blood pressure 87 mm[Hg] CJ Hassmann DPM Work Phone: [facility] 03-03-2023 14:44-0400 Heart rate 94 /min CJ Hassmann DPM Work Phone: [facility] 03-03-2023 14:44-0400 Systolic blood pressure 139 mm[Hg] CJ Hassmann DPM Work Phone: [facility] 07-02-2022 09:36-0400 Body height 157.5 cm [employer] Work Phone: [facility] 07-02-2022 09:36-0400 Body mass index (BMI) [Ratio] 38.67 kg/m2 [employer] Work Phone: [facility] 07-02-2022 09:36-0400 Body weight 95.89 kg [employer] Work Phone: [facility] 09-16-2020 20:53-0500 BMI (Body Mass Index) 39.32 kg/m2 [facility] 09-16-2020 20:53-0500 Body Temperature 99.5 [degF] [place] 09-16-2020 20:53-0500 Body weight 97.52 kg [place] 09-16-2020 20:53-0500 BP Diastolic 109 mm[Hg] [facility] 09-16-2020 20:53-0500 BP Systolic 189 mm[Hg] [facility] 09-16-2020 20:53-0500 Height 157.5 cm [place] 09-16-2020 20:53-0500 Pulse (Heart Rate) 99 /min [place] 09-16-2020 20:53-0500 Pulse Oximetry 96 % [place] 09-16-2020 20:53-0500 Respiratory Rate 18 /min [place] Encounters Encounter Date Encounter Type Care Provider Facility Start: 06-12-2025 End: 06-12-[address] [facility] Start: 06-12-2025 End: 06-12-2025 Subsequent hospital visit by physician [facility] Schedule [facility] Laboratory Comment on above: Arrived Start: 05-24-2025 End: 05-24-2025 [employer] Instilling Valuesheet Jennie Van REFRACTIVE SURGEON-PLANOGRAPH OPERATOR Work Phone: [facility] Start: 05-24-2025 End: 05-24-2025 [employer] Instilling Valuesajay Van REFRACTIVE SURGEON-PLANOGRAPH OPERATOR Work Phone: [facility] Start: 05-24-2025 End: 05-24-2025 ambulatory JENNIE VAN Not Available Start: 05-24-2025 End: 05-24-2025 Office outpatient visit 25 minutes Jennie Van REFRACTIVE SURGEON-PLANOGRAPH OPERATOR Work Phone: [facility] Comment on above: BUCK (obstructive sle ep apnea) (Primary Dx); Cervical paraspinal muscle spasm; Cervical radiculopathy Start: 05-23-2025 End: 05-23-2025 Telephone encounter Lynn Block MD Work Phone: [facility] Neurology 111 Start: 05-15-2025 End: 05-15-2025 ambulatory [facility] Start: 05-15-2025 End: 05-15-2025 Subsequent hospital visit by physician [facility] Schedule [facility] Comment on above: Arrived Start: 04-20-2025 End: 04-20-2025 Bamboo flowsheet Robbin Sánchez DPM Work Phone: [facility] Start: 04-20-2025 End: 04-20-2025 Bamboo flowsheet Robbin Sánchez DPM Work Phone: [facility] Start: 04-20-2025 End: 04-20-2025 Office outpatient visit 25 minutes Robbin Sánchez DPM Work Phone: [facility] Comment on above: MRSA (methicillin re [...] Clinisync Result Encounter Robbin GARCIAM Work Phone: [facility] External Department Unsolicited Start: 04-12-2025 End: 04-12-2025 Clinisync Result Encounter Robbin GARCIAM Work Phone: [facility] External Department Unsolicited Start: 04-11-2025 End: 04-11-2025 Clinisync Result Encounter Robbin GARCIAM Work Phone: [facility] External Department Unsolicited Start: 04-11-2025 End: 04-11-2025 Clinisync Result Encounter Robbin Sánchez DPM Work Phone: [facility] External Department Unsolicited Start: 04-11-2025 End: 04-13-2025 ambulatory [facility] Start: 04-11-2025 End: 04-13-2025 Subsequent hospital visit by physician Robbin GRACIAM Work Phone: [facility] Comment on above: Pain in right foot Start: 04-06-2025 End: 04-06-2025 Office outpatient visit 25 minutes Robbin GARCIAM Work Phone: [facility] Comment on above: Right foot pain (Vikki baldev Dx); Skin ulcer of toe of right foot with fat layer exposed (HCC); Infection of toe; Idiopathic progressive polyneuropathy; Generalized edema Start: 04-06-2025 End: 04-06-2025 ambulatory ROBBIN SÁNCHEZ Not Available Start: 04-06-2025 End: 04-06-2025 Bamboo flowsheet Robbin Sánchez DPM Work Phone: [facility] Start: 04-06-2025 End: 04-06-2025 Bamboo flowsheet Robbin Sánchez DPM Work Phone: [facility] Start: 04-04-2025 End: 04-05-2025 Emergency department patient visit Severo Case MD Work Phone: [facility] Emergency Department Comment on above: Pressure injury of d eep tissue of toe, unspecified laterality (Primary Dx) Start: 03-14-2025 End: 03-14-2025 Bamboo flowsheet Lynn Block MD Work Phone: [facility] Start: 03-14-2025 End: 03-14-2025 Bamboo flowsheet Lynn Block MD Work Phone: [facility] Start: 03-14-2025 End: 03-14-2025 Office outpatient visit 25 minutes Lynn Block MD Work Phone: [facility] B Comment on above: BUCK (obstructive sle ep apnea) (Primary Dx); Claustrophobia ; Hypersomnia Start: 03-14-2025 End: 03-14-2025 ambulatory LYNN BLOCK Not Available Start: 02-15-2025 End: 02-17-2025 ambulatory [facility] Start: 02-15-2025 End: 02-17-2025 Subsequent hospital visit by physician Felipe Adam MD Work Phone: [facility] Mammography Comment on above: Encounter for screen ing mammogram for malignant neoplasm of breast Start: 02-13-2025 ambulatory Facility[facility] Start: 02-13-2025 End: 02-13-2025 Bamboo flowsheet Tiffanie Casas MD Work Phone: [facility] Start: 02-13-2025 End: 02-13-2025 Bamboo flowsheet Tiffanie Casas MD Work Phone: [facility] Start: 02-13-2025 End: 02-13-2025 ambulatory TIFFANIE CASAS Not Available Start: 02-13-2025 End: 02-13-2025 Office outpatient visit 25 minutes Tiffanie Casas MD Work Phone: [facility] Comment on above: Charcot's joint, lef t ankle and foot (Primary Dx); Gait instability; Idiopathic progressive polyneuropathy; Intractable 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 (CMS/HCC); Restless legs; Carpal tunnel syndrome, bilateral; BUCK (obstructive sleep apnea) Start: 12-06-2024 End: 12-06-2024 Bamboo flowsheet Lynn Block MD Work Phone: [facility] Start: 12-06-2024 End: 12-06-2024 Bamboo flowsheet Lynn Block MD Work Phone: [facility] Start: 12-06-2024 End: 12-06-2024 ambulatory LYNN BLOCK Not Available Start: 12-06-2024 End: 12-06-2024 Office outpatient new 60 minutes Lynn Block MD Work Phone: [facility] B Comment on above: BUCK (obstructive sle ep apnea) (Primary Dx); BUCK on CPAP; Claustrophobia (CMS/HCC) Start: 11-14-2024 End: 11-14-2024 Bamboo flowsheet Fozia Jamila Meng BOND TRADER Work Phone: [facility] Start: 11-14-2024 End: 11-14-2024 Bamboo flowsheet Fozia C Windnagel BOND TRADER Work Phone: [facility] Start: 11-14-2024 End: 11-14-2024 Office outpatient visit 25 minutes Fozia Jamila Meng BOND TRADER Work Phone: [facility] Comment on above: BUCK on CPAP (Primary Dx); Idiopathic progressive polyneuropathy; Restless legs; Intractable 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 (CMS/HCC) Start: 11-14-2024 End: 11-14-2024 ambulatory FOZIA C LYNDANAGEL Not Available Start: 11-14-2024 End: 11-14-2024 [facility] Start: 11-14-2024 End: 11-14-2024 Subsequent hospital visit by physician Felipe Adam MD Work Phone: [facility] Comment on above: Pre-diabetes; Mixed hyperlipidemia Start: 11-02-2024 End: 11-02-2024 Telephone encounter Janel Allen BOND TRADER Work Phone: [facility] 210 Start: 10-11-2024 End: 10-11-2024 Office outpatient new 45 minutes Felipe Adam MD Work Phone: [facility] Comment on above: Thyroid nodule (Prim misa Dx); Lipoma of neck Start: 10-11-2024 End: 10-11-2024 ambulatory FELIPE BACK [facility] Start: 10-05-2024 End: 10-06-2024 Refill Tiffanie Casas MD Work Phone: [facility] NE[facility] Comment on above: Idiopathic progressi ve polyneuropathy; Non-seasonal allergic rhinitis due to pollen Start: 09-14-2024 End: 09-14-2024 Bamboo flowsheet Fozia Meng BOND TRADER Work Phone: [facility] Start: 09-14-2024 End: 09-14-2024 Bamboo flowsheet Fozia Meng BOND TRADER Work Phone: [facility] Start: 09-14-2024 End: 09-14-2024 Telephone encounter Fozia Meng BOND TRADER Work Phone: [facility] 210 Start: 09-14-2024 End: 09-14-2024 Office outpatient visit 25 minutes Fozia Meng BOND TRADER Work Phone: [facility] Comment on above: BUCK on CPAP (Primary Dx); Idiopathic progressive polyneuropathy; Intractable 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 (CMS/HCC); Restless legs; Bilateral carpal tunnel syndrome Start: 09-14-2024 End: 09-14-2024 ambulatory FOZIA MENG Not Available Start: 09-09-2024 End: 09-09-2024 Transcribe Orders Fozia Marcus MA [facility] ENT Lien ramhan Comment on above: Thyroid nodule (Prim misa Dx) Start: 09-06-2024 End: 09-08-2024 ambulatory [facility]IPE BACK [facility] Start: 09-06-2024 End: 09-08-2024 Subsequent hospital visit by physician Felipe Adam MD Work Phone: [facility] [place] [facility] Ultrasound Comment on above: Thyroid nodule Start: 08-11-2024 End: 08-11-2024 Refill Tiffanie Casas MD Work Phone: [facility] NE[facility] Comment on above: Idiopathic progressi ve polyneuropathy; Non-seasonal allergic rhinitis due to pollen Start: 06-10-2024 End: 06-10-2024 Bamboo flowsheet Tiffanie Casas MD Work Phone: [facility] NEUROLOG[facility] Start: 06-10-2024 End: 06-10-2024 Bamboo flowsheet Tiffanie Casas MD Work Phone: [facility] NEUR[facility] Start: 06-10-2024 End: 06-10-2024 Office outpatient visit 25 minutes Tiffanie Casas MD Work Phone: [facility] NE[facility] Comment on above: Idiopathic progressi ve polyneuropathy (Primary Dx); Bilateral carpal tunnel syndrome; Restless legs; Intractable 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 ([facility]/HCC) Start: 06-10-2024 End: 06-10-2024 ambulatory TIFFANIE CASAS Not Available Start: 05-10-2024 End: 05-10-2024 Subsequent hospital visit by physician Felipe Adam MD Work Phone: [facility] Start: 05-10-2024 End: 05-10-2024 Office outpatient visit 40 minutes Cheryl Miles DO Work Phone: [facility] Comment on above: BUCK (obstructive sle ep apnea); Hypersomnia; Snoring; Class 2 obesity due to excess calories with body mass index (BMI) of 38.0 to 38.9 in adult, unspecified whether serious comorbidity present Start: 02-15-2024 End: 02-15-2024 ambulatory Frances Harris Facility:[facility] Start: 02-15-2024 End: 02-15-2024 ambulatory [facility] Frances Harris Work Phone: [facility] Work Phone: Start: 02-15-2024 End: 02-15-2024 Departed Referred DPM Frances Harris Work Phone: [facility] Start: 06-15-2023 End: 06-15-2023 Subsequent hospital visit by physician Felipe Adam MD Work Phone: [facility] Comment on above: Mixed hyperlipidemia Start: 04-03-2023 ambulatory FELIPE BACK [facility] Start: 03-03-2023 End: 03-03-2023 Office outpatient new 45 minutes CJ Adam GARCIAM Work Phone: [facility] Comment on above: Charcot arthropathy of midfoot (Primary Dx); Gastrocnemius equinus, unspecified laterality; Foot pain, left Start: 02-11-2023 End: 02-12-2023 [facility] Start: 02-05-2023 End: 02-05-2023 Subsequent hospital visit by physician Felipe Adam MD Work Phone: [facility] Comment on above: Pelvic pressure in f emale Start: 02-04-2023 End: 02-05-2023 ambulatory FRANCES Weston [facility] Facility:H1 Start: 01-28-2023 End: 01-29-2023 ambulatory FRANCES Weston [facility] Facility:H1 Start: 01-06-2023 End: 01-06-2023 Emergency department patient visit [facility] Start: 07-09-2022 End: 07-09-2022 Subsequent hospital visit by physician Samantha Lino RD, LD Work Phone: [facility] Diet and Nutrition Comment on above: Arrived Start: 07-02-2022 End: 07-02-2022 Subsequent hospital visit by physician anne Diabetes Education Work Phone: [facility] Diabetic Education Start: 06-25-2022 End: 06-27-2022 Subsequent hospital visit by physician Tennille Additional Xray At [facility] Radiology Comment on above: Foreign body (FB) in soft tissue Start: 06-25-2022 End: 06-27-2022 Subsequent hospital visit by physician [facility] M[facility] MRI Comment on above: Pain of foot, unspec ified laterality; Closed nondisplaced fracture of second metatarsal bone of left foot, initial encounter; Closed nondisplaced fracture of lateral cuneiform of left foot, initial encounter Start: 05-27-2022 End: 2022 Subsequent hospital visit by physician [facility] Ultrasound Room [facility] Comment on above: Neck mass Start: 04-28-2022 End: 04-29-2022 ambulatory [facility] Start: 04-28-2022 End: 04-28-2022 Subsequent [...] Start: 02-04-2022 End: 02-04-2022 Patient encounter procedure [facility] [address] Start: 02-03-2022 End: 02-03-2022 Subsequent hospital visit by physician Hilaria Trujillo [facility] Start: 01-29-2022 End: 01-29-2022 Subsequent hospital visit by physician Beverly Rangel [employer] LEAD[employer] [facility] Comment on above: Arrived Start: 01-27-2022 End: 01-27-2022 Subsequent hospital visit by physician Christel Donohue PT [facility] Comment on above: Arrived Start: 01-24-2022 End: 01-24-2022 Subsequent hospital visit by physician Vanessa Garcia PT [facility] Comment on above: Arrived Start: 01-22-2022 End: 01-22-2022 Subsequent hospital visit by physician Beverly Rangel [employer] LEAD[employer] [facility] Start: 01-17-2022 End: 01-17-2022 Subsequent hospital visit by physician Beverly Rangel [employer] LEADER [facility] Comment on above: Arrived Start: 01-13-2022 End: 01-13-2022 Subsequent hospital visit by physician Christel Donohue PT [facility] Start: 01-03-2022 End: 01-03-2022 Subsequent hospital visit by physician Beverly Rangel [employer] LEADER [facility] Comment on above: Arrived [...] Start: 11-29-2021 End: 11-29-2021 ambulatory FELIPE ADAM [facility] Start: 08-01-2021 End: [...] by physician Felipe Adam MD Work Phone: [facility] Start: 04-13-2021 End: 04-13-2021 Subsequent hospital visit by physician Felipe Adam MD Work Phone: [facility] Comment on above: Acute cystitis with hematuria Start: 02-13-2021 End: 02-13-2021 Subsequent hospital visit by physician [facility] Andriy19 Pat Screening Schedule [facility] Comment on above: Suspected COVID-19 v irus infection Start: 01-21-2021 End: 01-21-2021 Subsequent hospital visit by physician [facility] Comment on above: Viral illness Start: 11-15-2020 End: 11-15-2020 Subsequent hospital visit by physician [facility] Andriy Pat Screening Schedule [facility] Comment on above: Arrived Start: 09-16-2020 End: 09-16-2020 Emergency department patient visit Phillippachecomichael Rooney Work Phone: [facility] ED Comment on above: Acute thoracic [...] visit by physician [facility] Schedule [facility] SLEEP LAB Comment on above: Arrived Start: 07-28-2019 End: 07-30-2019 Subsequent hospital visit by physician Tennille Additional Xray At [facility] Radiology Comment on above: MRSA (methicillin re sistant Staphylococcus aureus) septicemia (HCC) Start: 06-17-2019 End: 06-17-2019 Subsequent hospital visit by physician Felipe Adam [facility] Laboratory Comment on above: MRSA (methicillin re sistant Staphylococcus aureus) infection Start: 02-03-2019 End: 02-04-2019 Patient encounter procedure TIFFANIE CASAS [facility] Start: 02-03-2019 End: 02-03-2019 Subsequent hospital visit by physician Tiffanie Casas Work Phone: [facility] MRI Comment on above: Brachial neuritis; Peripheral nerve disorder; Spasm of muscle Start: 11-10-2018 End: 11-10-2018 Patient encounter procedure Andrey Early Facility[facility] Start: 10-18-2018 End: 10-18-2018 Patient encounter procedure Andrey Early Work Phone: [facility] Start: 10-03-2018 Patient encounter procedure Dav Hartman Facility:[facility] Start: 10-03-2018 End: 10-03-2018 Patient encounter procedure [facility] Start: 09-20-2018 End: 09-21-2018 Patient encounter procedure Gosia Hartman Facility:[facility] Start: 09-20-2018 Patient encounter procedure Facility:[id number] Start: 09-13-2018 Patient encounter procedure GOSIA HARTMAN [facility] Start: 09-06-2018 End: 09-06-2018 Patient encounter procedure Historical Provider [facility] Start: 08-31-2018 End: 08-31-2018 Patient encounter procedure [facility] Provider [facility] Start: 08-27-2018 End: 08-28-2018 Patient encounter procedure Gosia Hartman Facility:[facility] Start: 08-27-2018 Patient encounter procedure Facility:[id number] Start: 08-15-2018 End: 08-25-2018 [facility] Start: 04-02-2018 End: 04-02-2018 Patient encounter procedure Melchor Calderon Facility:[facility] Start: 03-23-2018 Patient encounter procedure Shanice Juares Facility:[facility] Start: 02-04-2018 End: 02-04-2018 Ambulatory Melchor Calderon [facility] Start: 11-24-2017 Patient encounter procedure [facility] Start: 11-17-2017 End: 11-17-2017 Ambulatory Ceferino Corley Work Phone: [facility] Start: 10-20-2017 End: 10-20-2017 Ambulatory DAKSHA KING [facility] Start: 10-20-2017 Patient encounter procedure [facility] Start: 10-09-2017 Ambulatory [facility] Start: 10-09-2017 End: 10-09-2017 Patient encounter procedure [facility] Start: 09-16-2017 Patient encounter procedure [facility] Start: 08-03-2017 [facility] Start: 03-31-2017 End: 03-31-2017 Ambulatory SHANICE GOLDSTEIN MOR [facility] Procedures Date Procedure Procedure Detail Performing [...] Work Phone: Start: 01-21-2021 COVID-19 Pattie smith REFRACTIVE SURGEON - PLANOGRAPH OPERATOR Work Phone: Start: 11-15-2020 COVID-19 Dav [...] 09-24-2019 Hemoglobin glycosyla jamia a1c Janelsanta Allen REFRACTIVE SURGEON - PLANOGRAPH OPERATOR Work Phone: Start: 09-24-2019 VITAMIN B12 & FOLATE Ja danny Dieudonne Allen REFRACTIVE SURGEON - PLANOGRAPH OPERATOR Work Phone: Start: 07-28-2019 Radex spine cervical 4 or 5 views Azalea Knight Work Phone: Start: 07-28-2019 Blood count complete auto&auto difrntl wbc Azalea Knight REFRACTIVE SURGEON - PLANOGRAPH OPERATOR Work Phone: Start: 07-28-2019 C-reactive protein Azalea Knight REFRACTIVE SURGEON - PLANOGRAPH OPERATOR Work Phone: Start: 06-17-2019 Albumin serum [...] Unless otherwise noted, all testing performed by [facility] [address] [place], [place] [address] CLIA: [id number] Building Insulation Installer: Harshad Solano M.D. Start: 09-06-2018 End: 09-06-2018 [...] Detail Author Start: 04-14-2030 Lipid panel Lipids [employer] Start: 11-14-2029 Lipid panel Lipids [facility] [employer] Start: 2029 Shingles Vaccine (1 of 2) Shingles Vaccine (1 of 2) [facility] [place], [place] Start: 05-02-2029 Lipid panel Lipids [facility] [email or web address] Start: 12-10-2027 Screening for malignant neoplasm of colon [facility] [employer] Start: 04-12-2027 Lipid panel Lipids [facility] [email or web address] Start: 02-15-2027 Screening for malignant neoplasm of breast Breast cancer screen [facility] [employer] Start: 06-12-2026 GFR test (Diabetes, CKD 3-4, OR last GFR 15-59) GFR test (Diabetes, CKD 3-4, OR last GFR 15-59) [employer] Start: 05-15-2026 GFR test (Diabetes, CKD 3-4, OR last GFR 15-59) GFR test (Diabetes, CKD 3-4, OR last GFR 15-59) [facility] [employer] Start: 05-14-2026 Lipid panel [facility] Start: 04-14-2026 GFR test (Diabetes, CKD 3-4, OR last GFR 15-59) GFR test (Diabetes, CKD 3-4, OR last GFR 15-59) [employer] Start: 04-14-2026 Hemoglobin A1c measurement A1C test (Diabetic or Prediabetic) [employer] Start: 04-11-2026 GFR test (Diabetes, CKD 3-4, OR last GFR 15-59) GFR test (Diabetes, CKD 3-4, OR last GFR 15-59) [employer] Start: 11-15-2025 Depression Monitoring Depression Monitoring [facility] Start: 11-14-2025 GFR test (Diabetes, CKD 3-4, OR last GFR 15-59) GFR test (Diabetes, CKD 3-4, OR last GFR 15-59) [employer] Start: 11-14-2025 Hemoglobin A1c measurement A1C test (Diabetic or Prediabetic) [facility] Start: 10-12-2025 End: 10-12-2025 Patient encounter procedure 10/12/2025 10:30 AM EST Office Visit [facility] [address] [place] [address] Sherman Adair MD [address] [place] [id number] [facility] [facility] Start: 10-11-2025 End: 10-11-2026 US Head and neck soft tissue US Soft Tissue Neck Imaging Routine Thyroid nodule Expected: 10/11/2025, Expires: 10/11/2026 [facility] Work Phone: Comment on above: Expected: 10/11/2025, Expires: Start: 08-23-2025 End: 08-23-2025 Patient encounter procedure 08/23/2025 1:00 PM EST Office Visit [facility] [address] [place] [address] [place] [phone] Jennie Van, REFRACTIVE [facility] [address] [facility] [place] [address] [facility] Start: 07-27-2025 End: 07-27-2025 Patient encounter procedure 07/27/2025 11:00 AM EDT Office Visit [facility] [address] [place] [address] Felipe Adam MD [address] [place] [address] Return in about 3 months (around 07/19/2025). [facility] Comment on above: Return in about 3 months (around 025). Start: 06-05-2025 COVID-19 Vaccine () COVID-19 Vaccine ( season) Sid Peter [facility] Start: 05-31-2025 End: 05-24-2026 XR Cervical spine 4 or 5 Views XR cervical spine complete 4 to 5 views Imaging Routine Cervical paraspinal muscle spasm Expected: 05/31/2025, Expires: 05/24/2026 [facility] Work Phone: Comment on above: Expected: 05/31/2025, Expires: Start: 05-25-2025 Lipid panel Lipid screen [facility]- [place], [place] Start: 05-24-2025 End: 05-24-2025 Patient encounter procedure 05/24/2025 11:30 AM EDT [facility] [address] [facility] [address] [place] [phone] Jennie Van, REFRACTIVE SURGEON-PLANOGRAPH OPERATOR [address] [facility] [place] [address] [facility] Start: 05-17-2025 End: 05-17-2025 Patient encounter procedure 05/17/2025 1:20 PM EDT [facility] [address] [facility] [address] [place] [address] Tiffanie Casas MD [address] [facility] [address] [address] [facility] Start: 05-15-2025 End: 05-15-2025 Patient encounter procedure 05/15/2025 1:15 PM EDT Office Visit [facility] [address] [place] [phone] Felipe Adam MD [address] [place] [address] Return in about 6 months (around 05/15/2025). [facility] Comment on above: Return in about 6 months (around 05/15/20). Start: 05-10-2025 GFR test (Diabetes, CKD 3-4, OR last GFR 15-59) GFR test (Diabetes, CKD 3-4, OR last GFR 15-59) [facility] Start: 05-05-2025 Influenza vaccination [facility] Start: 05-02-2025 Hemoglobin A1c measurement A1C test (Diabetic or Prediabetic) [facility] Start: 05-02-2025 End: 05-02-2025 Patient encounter procedure 05/02/2025 2:00 PM EDT Office Visit [facility] B [address] [facility] [address] [place] [address] Fozia Meng, BOND TRADER [address] , [facility] [address] [place] [address] [facility] B Start: 05-01-2025 End: 05-01-2025 Patient encounter procedure 05/01/2025 4:00 PM EDT Office Visit [facility] [address] [place] [address] Robbin Sánchez, DPM [address] [phone] [facility] Start: 04-20-2025 End: 04-20-2025 Patient encounter procedure 04/20/2025 12:45 PM EDT Office Visit [facility] [address] [place] [address] Robbin Sánchez, DPM [address] [place] [address] Arrived [facility] Comment on above: Arrived Start: 04-06-2025 End: 04-06-2025 Patient encounter procedure 04/06/2025 4:30 PM EDT Office Visit [facility] [address] [place] [address] Robbin Sánchez, DPM [address] [place] [address] Arrived [facility] Comment on above: Arrived Start: 04-06-2025 End: 04-06-2026 Creatinine [Mass/volume] in Serum or Plasma Creatinine, Serum Lab Routine Right foot pain Expected: 04/06/2025 (Approximate), Expires: 04/06/2026 [facility] Comment on above: Expected: 04/06/2025 (Approximate), Expi res: 04/06/2026 Start: 04-06-2025 End: 04-06-2026 MR Foot - right WO and W contrast IV MR foot right w and wo IV contrast Imaging STAT Right foot pain Expected: 04/06/2025, Expires: 04/06/2026 [facility] Work Phone: Comment on above: Expected: 04/06/2025, Expires: Start: 03-14-2025 End: 03-14-2025 Patient encounter procedure [facility] B Start: 02-13-2025 End: 02-13-2025 Patient encounter procedure 02/13/2025 1:00 PM EDT Office Visit [facility] [address] [address] Tiffanie Casas MD [address] [facility] [address] [address] [facility] Start: 01-27-2025 Depression Monitoring Depression Monitoring [facility] Start: 11-15-2024 End: 11-15-2024 Patient encounter procedure 11/15/2024 2:45 PM EST Office Visit [facility] [address] [place] [phone] Felipe Adam MD [address] [place] [address] 6 mo [facility] Comment on above: 6 mo Start: 11-14-2024 End: 11-14-2024 Patient encounter procedure [facility] R Comment on above: Arrived Start: 11-11-2024 End: 11-11-2024 Patient encounter procedure 11/11/2024 1:00 PM EST Office Visit [facility] [address] [place] [address] Felipe Adam MD [address] [place] [address] 6 mo [facility] Comment on above: 6 mo Start: 09-24-2024 Screening for malignant neoplasm of cervix [facility] Start: 09-14-2024 End: 09-14-2024 Patient encounter procedure 09/14/2024 11:20 AM EST Office Visit [facility] [address] [facility] [address] [place] [phone] Fozia Meng BOND TRADER [address] [phone] Arrived [facility] Comment on above: Arrived Start: 09-08-2024 DTaP/Tdap/Td vaccine (2 - Td or Tdap) DTaP/Tdap/Td vaccine (2 - Td or Tdap) [facility] Start: 09-08-2024 DTaP/Tdap/Td vaccine (2 - Td) DTaP/Tdap/Td vaccine (2 - Td) [place], [place] Start: 09-08-2024 Tetanus vaccination [facility] Start: 09-05-2024 End: 09-05-2024 Patient encounter procedure 09/05/2024 1:00 PM EST Office Visit [facility] [address] [facility] [address] [place] [phone] Tiffanie Casas MD [address] [facility] [address], [place] [phone] [facility] Start: 08-18-2024 End: 08-18-2024 Patient encounter procedure 08/18/2024 1:30 PM EST Office Visit [facility] Urology [address] [facility] [address] [place] [address] Luis Mlcean, PA-C [address] [facility] [address] [place], [place] [phone] 1 yr med chk [facility] Comment on above: 1 yr med k Start: 08-02-2024 End: 08-02-2024 Patient encounter procedure 08/02/2024 10:45 AM EDT Office Visit [facility] [address] [place] [phone] Cheryl Miles DO [address] [place] [address] [facility] Start: 07-11-2024 End: 07-11-2024 Telemedicine consultation with patient 07/11/2024 11:30 AM EDT Telemedicine [facility] [address] [place] [phone] Janel Allen, BOND TRADER [address] [facility] [address] [place] [address] [facility] 210 Start: 06-10-2024 End: 06-10-2024 Patient encounter procedure 06/10/2024 10:20 AM EDT Office Visit [facility] [address] [facility] [address] [place] [phone] Tiffanie Casas MD [address] [place] [address] Arrived [facility] Comment on above: Arrived Start: 06-05-2024 COVID-19 Vaccine ( season) COVID-19 Vaccine ( season) [facility] Start: 06-05-2024 COVID-19 Vaccine ( season) COVID-19 Vaccine ( season) [facility] Start: 06-05-2024 Influenza vaccination Influenza Vaccine (#1) [facility] Start: 2024 Screening for malignant neoplasm of colon [facility] Start: 05-17-2024 GFR test (Diabetes, CKD 3-4, OR last GFR 15-59) GFR test (Diabetes, CKD 3-4, OR last GFR 15-59) [facility] Start: 05-14-2024 Diabetes screen Diabetes screen [facility] Start: 05-12-2024 End: 05-12-2024 Patient encounter procedure 05/12/2024 11:00 AM EDT Office Visit [facility] Part of [address] [address] Lina Echols MD [facility] [place] [address] BUCK (obstructive sleep apnea) [facility] Part of [facility] Comment on above: BUCK (obstructive sleep apnea) Start: 05-11-2024 Lipid panel Lipid screen [place], [place] Start: 05-11-2024 Lipid screen Lipid screen [place], [place] Start: 05-05-2024 Influenza vaccination Flu vaccine (#1) [facility] Start: 03-23-2024 Depression Monitoring Depression Monitoring [facility] Start: 02-06-2024 GFR test (Diabetes, CKD 3-4, OR last GFR 15-59) GFR test (Diabetes, CKD 3-4, OR last GFR 15-59) [facility] Start: 02-06-2024 Hemoglobin A1c measurement A1C test (Diabetic or Prediabetic) [facility] Start: 08-13-2023 End: 08-13-2023 Patient encounter procedure [facility] Start: 06-22-2023 End: 06-22-2023 Patient encounter procedure 06/22/2023 11:15 AM EDT Office Visit [address] [phone] Felipe Adam MD [address] [place] [address] [facility] Start: 06-05-2023 Influenza vaccination Sequential Influenza Vaccine (Season Ended) [facility] Start: 05-05-2023 Influenza vaccination [facility] Start: 04-14-2023 End: 04-14-2023 Patient encounter procedure 04/14/2023 Office Visit Family Medicine Felipe Adam MD [address] [place] [address] [facility] Start: 04-12-2023 Hemoglobin A1c measurement A1C test (Diabetic or Prediabetic) [facility] Start: 04-11-2023 Depression Monitoring Depression Monitoring [facility] Start: 04-11-2023 History and physical examination, annual for health maintenance Wellness Visit [facility] Start: 12-25-2022 End: 12-25-2022 Patient encounter procedure 12/25/2022 Office Visit Infectious Diseases Dav Hartman MD [address] [address] [facility]. Start: 09-24-2022 Diabetes screen Diabetes screen [place], [place] Start: 08-07-2022 End: 08-07-2022 Patient encounter procedure 08/07/2022 Office Visit Urology Luis Mclean, PA-C [address] [facility] [address] [address] [facility] Start: 07-15-2022 End: 07-15-2022 Nursing evaluation of patient and report 07/15/2022 Nurse Only Family Medicine [facility] Start: 07-09-2022 End: 07-09-2022 Patient encounter procedure 07/09/2022 Appointment IP Unit Samantha Lino, RD, LD [facility] Start: 06-05-2022 Influenza vaccination [facility] Start: 05-20-2022 Creatinine measurement [facility] Start: 05-20-2022 Potassium [Moles/volume] in Serum or Plasma Potassium [facility] Start: 05-20-2022 Potassium monitoring Potassium monitoring [facility] [employer] Start: 05-14-2022 Creatinine measurement Creatinine monitoring [facility] [employer] Work Phone: Start: 05-14-2022 Potassium monitoring Potassium [facility] Work Phone: Start: 05-05-2022 Influenza vaccination Flu vaccine (#1) [facility] Start: 03-20-2022 Screening for malignant neoplasm of cervix [facility] Start: 02-05-2022 End: 02-05-2022 Patient encounter procedure 02/05/2022 Appointment Physical Therapy Christel Donohue PT [facility] Start: 02-03-2022 End: 02-03-2022 Patient encounter procedure [facility] Start: 01-30-2022 End: 01-30-2022 Patient encounter procedure [facility] Start: 01-29-2022 End: 01-29-2022 Patient encounter procedure 01/29/2022 Appointment Physical Therapy Beverly Rangel NATIONAL [employer] LEADER [facility] Start: 01-27-2022 End: 01-27-2022 Patient encounter procedure 01/27/2022 Appointment Physical Therapy Christel Donohue PT [facility] Start: 01-24-2022 End: 01-24-2022 Patient encounter procedure 01/24/2022 Appointment Physical Therapy Vanessa Garcia PT [facility] Start: 01-22-2022 End: 01-22-2022 Patient encounter procedure 01/22/2022 Appointment Physical Therapy Beverly Rangel NATIONAL [employer] LEADER [facility] Start: 01-17-2022 End: 01-17-2022 Patient encounter procedure 01/17/2022 Appointment Physical Therapy Beverly Rangel NATIONAL ST[employer] LEADER [facility] Start: 01-10-2022 End: 01-10-2022 Patient encounter procedure 01/10/2022 Appointment Physical Therapy Christel Donohue PT [facility] Start: 01-08-2022 End: 01-08-2022 Patient encounter procedure 01/08/2022 Appointment Physical Therapy Beverly Rangel PTA [facility] Start: 01-02-2022 End: 01-02-2022 Patient encounter procedure 01/02/2022 Appointment Occupational Therapy Judi Marie OTA [address] [place] [address] [facility] Start: 12-31-2021 Diabetes screen Diabetes screen [facility] [place], Start: 12-31-2021 End: 12-31-2021 Patient encounter procedure [facility] Start: 12-30-2021 End: 12-30-2021 Patient encounter procedure 12/30/2021 Appointment Occupational Therapy Cheryl Herman OT [facility] Start: 12-27-2021 End: 12-27-2021 Patient encounter procedure 12/27/2021 Appointment Occupational Therapy Eve Gaspar OTA [facility] Start: 11-14-2021 End: 11-14-2021 Patient encounter procedure 11/14/2021 Office Visit Family Medicine Felipe Adam MD [address] [place] [address] [phone] [facility] Start: 10-29-2021 Depression Monitoring Depression Monitoring [facility] Start: 09-16-2021 Creatinine measurement Creatinine monitoring [employer] Phone: Start: 09-16-2021 Potassium monitoring Potassium monitoring [employer] Phone: Start: 08-01-2021 End: 08-01-2021 Patient encounter procedure 08/01/2021 Office Visit Urology Lita Weeks MD [address] [facility], [address] [place], [place] [phone] [facility] Start: 06-05-2021 Influenza vaccination [facility] Start: 05-25-2021 Creatinine measurement Creatinine monitoring [facility] [place] [place] Start: 05-25-2021 HbA1c (Bld) [Mass fraction] A1C test (Diabetic or Prediabetic) [facility] [place], Start: 05-25-2021 Hemoglobin A1c measurement A1C test (Diabetic or Prediabetic) [employer] Phone: Start: 05-25-2021 Potassium monitoring Potassium monitoring [place], [place] Start: 11-13-2020 End: 11-13-2020 Office Visit 11/13/2020 Office Visit Family Medicine BackFelipe MD [address] [place] [address] [phone] [facility] Start: 11-02-2020 Potassium monitoring Potassium monitoring [place], [place] Start: 10-23-2020 End: 10-23-2020 Office Visit 10/23/2020 Office Visit Infectious Diseases Dav Hartman MD [address] [facility] [place] [address] [phone] [facility] Start: 09-24-2020 HbA1c (Bld) [Mass fraction] A1C test (Diabetic or Prediabetic) [place], [place] Start: 06-17-2020 Creatinine measurement Creatinine monitoring [facility] [place] Start: 06-17-2020 Creatinine monitoring Creatinine monitoring [place], [place] Start: 06-17-2020 Potassium monitoring Potassium monitoring [place], [place] Start: 06-12-2020 End: 06-12-2020 Office Visit 06/12/2020 Office Visit Infectious Diseases Dav Hartman MD [address] [facility] [place] [address] [phone] [facility] Start: 06-05-2020 Influenza vaccination Flu vaccine (#1) [place] Start: 03-20-2020 Cervical cancer screen Cervical cancer screen [place], [place] Start: 03-20-2020 Screening for malignant neoplasm of cervix [facility] Start: 11-01-2019 End: 11-01-2019 Office Visit 11/01/2019 Office Visit Infectious Diseases Dav Hartman MD [address] [facility] [place] [address] [phone] [facility] Start: 07-28-2019 End: 07-28-2019 Office Visit 07/28/2019 Office Visit Infectious Diseases Dav Hartman MD [address] [facility] [place] [address] [phone] [facility] Start: 06-27-2019 End: 06-27-2019 Nurse Only 06/27/2019 Nurse Only Family Medicine [facility] Start: 06-05-2019 Influenza vaccination Flu vaccine (#1) [place] Start: 06-05-2019 Influenza vaccination given SEQUENTIAL INFLUENZA VACCINE (Season Ended) [facility] Start: 2019 Screening for malignant neoplasm of breast [facility] Start: 06-05-2018 Influenza vaccination INFLUENZA VACCINE (#1) [facility] Work Phone: Start: 03-23-2018 End: 03-23-2018 Ambulatory [facility] Start: 2009 Screening for malignant neoplasm of cervix HPV (without or with Pap) [facility] Start: 2000 Screening for malignant neoplasm of cervix PAP SMEAR DISCUSSION [facility] Work Phone: Start: 1998 Hepatitis B vaccine (1 of 3 - 19+ 3-dose series) Hepatitis B vaccine (1 of 3 - 19+ 3-dose series) [facility] Start: 1998 Third diphtheria, tetanus and acellular pertussis (DTaP) vaccination TDAP (ADULT) [facility] Work Phone: Start: 1997 Hepatitis C screening Hepatitis C Screening [facility] Start: 1997 Tetanus vaccination TETANUS [facility] Work Phone: Start: 1995 COVID-19 Vaccine (1) COVID-19 Vaccine (1) [facility] Work Phone: Start: 1994 HIV screen HIV screen [place], [place] Start: 1994 HIV screening HIV screen [facility] Start: 1992 HIV screening HIV SCREENING DISCUSSION [facility] Work Phone: Start: 1991 COVID-19 Vaccine (1) COVID-19 Vaccine (1) [employer] Phone: Start: 1991 Depression Monitoring Depression Monitoring [facility] Start: 1991 Depression screening using PHQ-9 (Patient Health Questionnaire 9) score [facility] Start: 1989 Urine screening for protein Urine Microalbumin [facility] Start: 1985 Pneumococcal Vaccine: Ped or At-Risk (1 - PCV) Pneumococcal Vaccine: Ped or At-Risk (1 - PCV) [facility] Start: 1984 COVID-19 Vaccine (1) COVID-19 Vaccine (1) [facility] Start: 1982 History and physical examination, annual for health maintenance Wellness Visit [facility] Start: 1979 COVID-19 Vaccine (#1) COVID-19 Vaccine (#1) [facility] [employer] Start: 1979 Hepatitis B vaccine (1 of 3 - 3-dose series) Hepatitis B vaccine (1 of 3 - 3-dose series) [facility] [email or web address] Start: 1979 Screening for malignant neoplasm of colon [facility] End: 02-13-2021 COVID-19 COVID-19 Lab Routine Suspected COVID-19 virus infection 1 Occurrences starting 02/13/2021 until 02/13/2021 [employer] Phone: Comment on above: 1 Occurrences starting 02/13/2021 until 02/13/2021 COVID-19 COVID-19 Lab Rou luis Suspected COVID-19 virus infection 02/13/2021 3:06 PM EDT [employer] Phone: End: 08-08-2020 COVID-19 Ambulatory COVID-19 Ambulatory Lab Routine SOB (shortness of breath) 1 Occurrences starting 08/08/2020 until 08/08/2020 [facility] Comment on above: 1 Occurrences starting 08/08/2020 until 08/08/2020 COVID-19 Ambulatory COVID-19 Amb ulatory Lab Routine SOB (shortness of breath) 08/08/2020 4:02 PM EST [facility] [place], [place] End: 05-20-2021 Creatinine [Mass/volume] in Urine Creatinine, Random Urine Lab Routine Once for 1 Occurrences starting 05/20/2021 until 05/20/2021 [employer] Phone: Comment on above: Once for 1 Occurrences starting 05/20/20 21 until 05/20/2021 Creatinine [Mass/vol ume] in Urine Creatinine, Random Urine Lab Routine 05/20/2021 7:57 PM EDT [employer] Phone: End: 04-13-2021 Culture, Urine Culture, Urine Microbiology Routine Acute cystitis with hematuria 1 Occurrences starting 04/13/2021 until 04/13/2021 [employer] Phone: Comment on above: 1 Occurrences starting 04/13/2021 until 04/13/2021 Culture, Urine [employer] Phone: End: 05-27-2021 Culture, Urine Culture, Urine Microbiology Routine Difficult or painful urination 1 Occurrences starting 05/27/2021 until 05/27/2021 [employer] Phone: Comment on above: 1 Occurrences starting 05/27/2021 until 05/27/2021 End: 06-11-2021 Culture, Urine Culture, Urine Microbiology Routine Acute cystitis with hematuria Recurrent UTI 1 Occurrences starting 06/11/2021 until 06/11/2021 [employer] Phone: Comment on above: 1 Occurrences starting 06/11/2021 until 06/11/2021 End: 07-11-2021 Culture, Urine Culture, Urine Microbiology Routine Frequent UTI Urinary urgency Urinary frequency 1 Occurrences starting 07/11/2021 until 07/11/2021 [employer] Phone: Comment on above: 1 Occurrences starting 07/11/2021 until 07/11/2021 End: 08-01-2021 Culture, Urine Culture, Urine Microbiology Routine Frequent UTI Urinary urgency Urinary frequency 1 Occurrences starting 08/01/2021 until 08/01/2021 [employer] Phone: Comment on above: 1 Occurrences starting 08/01/2021 until 08/01/2021 End: 04-28-2022 Culture, Urine Culture, Urine Microbiology Routine Acute cystitis with hematuria 1 Occurrences starting 04/28/2022 until 04/28/2022 [facility] Phone: Comment on above: 1 Occurrences starting 04/28/2022 until 04/28/2022 End: 02-05-2023 Culture, Urine [facility] Phone: Comment on above: 1 Occurrences starting 02/05/2023 until 02/05/2023 End: 04-04-2025 Culture, Wound (with Gram Stain) [employer] Comment on above: One Time for 1 Occurrences starting 10/2024 until 04/04/2025 End: 02-15-2025 DBT Breast - bilateral screening [employer] Comment on above: 1 Occurrences starting 02/15/2025 until 02/15/2025 End: 04-12-2022 Hemoglobin A1c/Hemoglobin.total in Blood [facility] Phone: Comment on above: 1 Occurrences starting 04/12/2022 until 04/12/2022 End: 02-05-2023 Hemoglobin A1c/Hemoglobin.total in Blood [facility] Phone: Comment on above: Once for 1 Occurrences starting 02/06/20 23 until 02/05/2023 End: 08-29-2019 Home Sleep Study Home Sleep Study Sleep Center Routine One Time for 1 Occurrences starting 08/29/2019 until 08/29/2019 [facility] [place] Comment on above: One Time for 1 Occurrences starting 08/06 until 08/29/2019 End: 09-24-2019 Methylmalonic Acid, Serum Methylmalonic Acid, Serum Lab Routine Once for 1 Occurrences starting 09/24/2019 until 09/24/2019 [employer] Phone: Comment on above: Once for 1 Occurrences starting 09/24/20 19 until 09/24/2019 Methylmalonic Acid, Serum Methyl malonic Acid, Serum Lab Routine 09/24/2019 9:33 AM [employer] Phone: End: 09-24-2019 Nuclear Ab [Titer] in Serum by Immunofluorescence [facility] Lab Routine Once for 1 Occurrences starting 09/24/2019 until 09/24/2019 [employer] Phone: Comment on above: Once for 1 Occurrences starting 09/24/20 until 09/24/2019 Nuclear Ab [Titer] i n Serum by Immunofluorescence [facility] Lab Routine 09/24/2019 9:33 AM [employer] Phone: End: 05-20-2021 Protein, urine, random Protein, urine, random Lab Routine Once for 1 Occurrences starting 05/20/2021 until 05/20/2021 [employer] Phone: Comment on above: Once for 1 Occurrences starting 05/20/20 until 05/20/2021 Protein, urine, random Protein, urine, random Lab Routine 05/20/2021 7:57 PM EDT [employer] Phone: End: 12-14-2019 Sedimentation Rate Sedimentation Rate Lab Routine MRSA (methicillin resistant Staphylococcus aureus) septicemia (HCC) 1 Occurrences starting 12/14/2019 until 12/14/2019 [place] Comment on above: 1 Occurrences starting 12/14/2019 until 12/14/2019 Sedimentation Rate Sedimentation Rate Lab Routine MRSA (methicillin resistant Staphylococcus aureus) septicemia (HCC) 12/14/2019 12:39 PM EDT [facility] [place] End: 09-24-2019 Sjogrens syndrome-A extractable nuclear antibody Sjogrens syndrome-A extractable nuclear antibody Lab Routine Once for 1 Occurrences starting 09/24/2019 until 09/24/2019 [employer] Phone: Comment on above: Once for 1 Occurrences starting 09/24/20 until 09/24/2019 Sjogrens syndrome-A extractable nuclear antibody Sjogrens syndrome-A extractable nuclear antibody Lab Routine 09/24/2019 9:33 AM [employer] Phone: End: 09-24-2019 Sjogrens syndrome-B extractable nuclear antibody Sjogrens syndrome-B extractable nuclear antibody Lab Routine Once for 1 Occurrences starting 09/24/2019 until 09/24/2019 [employer] Phone: Comment on above: Once for 1 Occurrences starting 09/24/20 until 09/24/2019 Sjogrens syndrome-B extractable nuclear antibody Sjogrens syndrome-B extractable nuclear antibody Lab Routine 09/24/2019 9:33 AM [employer] Phone: End: 09-12-2019 Sleep Study with PAP Titration Sleep Study with PAP Titration Sleep Center Routine One Time for 1 Occurrences starting 09/12/2019 until 09/12/2019 [employer] Phone: Comment on above: One Time for 1 Occurrences starting 06/2019 until 09/12/2019 End: 09-24-2019 Vitamin B6 Vitamin B6 Lab Routine Once for 1 Occurrences starting 09/24/2019 until 09/24/2019 [employer] Phone: Comment on above: Once for 1 Occurrences starting 09/24/20 until 09/24/2019 Vitamin B6 Vitamin B6 Lab R outine 09/24/2019 9:33 AM [employer] Phone: XR Cervical spine 4 or 5 Views XR cervical spine complete 4 to 5 views Imaging Routine Cervical paraspinal muscle spasm 05/24/2025 12:45 PM EDT [facility] Immunizations Immunization Date Immunization Notes Care Provider Yair dai 09-08-2014 tetanus toxoid, redu gaby diphtheria toxoid, and acellular pertussis vaccine, adsorbed Felipe Back [facility] Payers Date Payer Category Payer Managed Care HMO (unspecified) [facility] HMO/CHOICE PLUS/DULCE/DULCE PLUS [id number]. [id number] 2024 Private Health Insurance [id number]. [id number] 2024 Private Health Insurance [id number] [id number]. [id number] 2024 Self-pay [id number] [phone] [id number] 2017 Blue Cross Blue Shie ld (Indemnity or Managed Care) - Out of State BCBS OUT OF STATE [facility] [id number]. [id number] 2017 Unknown 2016 Unknown [id number] 2016 Unknown xxxxxxxxxxxxxxx 1.2.840.748387.1.13.239.2.7. [id number] 2014 Medicaid [id number] 2.16.840.1.525171.3.249.13 2014 Medicaid [employer] MEDICAID [employer] MEDICAID xxxxxxxxxxx 2014-Present xxxxxxxxxxx 1.2.840.183677.1.13.385.2.7. [id number] 1979 Unknown [id number] 2.16.840.1.758056.3.579.2.35 6 1979 Unknown [id number] 2.16.840.1.295071.3.579.2.35 6 1979 Unknown [id number] 2.16.840.1.604096.3.579.2.71 7 1979 Unknown [id number] 2.16.840.1.556353.3.579.2.71 7 1979 Unknown [id number] 2.16.840.1.048648.3.579.2.17 5 1979 Unknown [id number] 2.16.840.1.584071.3.579.2.90 3 1979 Unknown [id number] 2.16.840.1.874182.3.579.2.18 2 1979 Unknown [id number] 2.16.840.1.979045.3.579.2.18 5 1979 Unknown [id number] 2.16.840.1.906181.3.579.2.90 3 1979 Unknown [id number] 2.16.840.1.638859.3.579.2.59 3 1979 Unknown [id number] 2.16.840.1.451864.3.579.2.59 3 1979 Unknown [id number] 2.16.840.1.633172.3.579.2.59 3 1979 Unknown [id number] 2.16.840.1.532043.3.579.2.90 3 1979 Unknown [id number] 2.16.840.1.843594.3.579.2.90 3 1979 Unknown [id number] 2.16.840.1.382985.3.579.2.72 7 1979 Unknown [id number] 2.16.840.1.135057.3.579.2.12 59 1979 Unknown [id number] 2.16.840.1.701795.3.579.2.12 59 1979 Unknown [id number] 2.16.840.1.855472.3.579.2.12 59 1979 Unknown [id number] 2.16.840.1.216486.3.579.2.12 59 1979 Unknown [id number] 2.16.840.1.248566.3.579.2.12 59 1979 Unknown [id number] 2.16.840.1.613454.3.579.2.12 59 1979 Unknown [id number] 2.16.840.1.438479.3.579.2.12 59 1979 Unknown [id number] 2.16.840.1.362782.3.579.2.12 59 1979 Unknown [id number] 2.16.840.1.352293.3.579.2.12 59 1979 Unknown [id number] 2.16.840.1.403933.3.579.2.12 59 1979 Unknown [id number] 2.16.840.1.490001.3.579.2.12 59 1979 Unknown [id number] 2.16.840.1.919028.3.579.2.17 4 1979 Unknown [id number] 2.16.840.1.943469.3.579.2.17 4 1979 Unknown [id number] 2.16.840.1.556459.3.579.2.17 4 1979 Unknown [id number] 2.16.840.1.469482.3.579.2.17 4 1979 Unknown [id number] 2.16.840.1.930107.3.579.2.17 4 1979 Unknown [id number] 2.16.840.1.662168.3.579.2.17 4 1979 Unknown [id number] 2.16.840.1.420315.3.579.2.17 4 1979 Unknown [id number] 2.16.840.1.831180.3.579.2.17 4 1959 Unknown [id number] 1.2.840.014903.1.13.239.2.7. 3.486034.315 Unknown 114 Unknown [id number] 2.16.840.1.176771.3.579.2.53 1 Social History Date Type Detail Facility Start: 05-01-2015 End: 08-13-2023 Tobacco smoking status NHIS Never smoker [facility] Work Phone: Start: 1980 Sex Assigned At Not on file [facility] Work Phone: Start: 05-27-2019 End: 11-15-2024 Alcohol intake No [place] Start: 12-13-2019 End: 04-18-2025 Alcohol intake Current non-drinker of alcohol (finding) [place], [place] Start: 12-09-2019 End: 05-13-2021 History SDOH Financial 4 [place], [place] Start: 12-09-2019 End: 05-20-2022 History SDOH Food Worry 1 [place] Start: 12-09-2019 History SDOH Transpo rt Med 2 [place] Start: 05-11-2020 End: 08-13-2023 Tobacco use and exposure Never used [place] Start: 10-30-2021 End: 03-02-2023 Exposure to SARS-CoV-2 (event) Not sure [place] Start: 1980 Sex Assigned At Female F [facility] Start: 05-20-2022 History SDOH Financial 3 [facility] Work Phone: Start: 01-06-2023 End: 11-15-2024 History of Social function [facility] How hard is it for y ou to pay for the very basics like food, housing, medical care, and heating Not very hard [employer] Patient Health Questionnaire 9 item (PHQ-9) total score [Reported] 0 [employer] (I/We) worried wheth er (my/our) food would run out before (I/we) got money to buy more. Never true [employer] At any time in the p ast 12 months, were you homeless or living in custodial [including now]? No [employer] Start: 10-09-2020 Gender identity Identifies as female gender (finding) [employer] Start: 10-09-2020 Sexual orientation Heterosexual (fin artur) [facility] How hard is it for y ou to pay for the very basics like food, housing, medical care, and heating Somewhat hard [employer] Start: 06-10-2024 End: 04-06-2025 Alcoholic beverage intake Lifetime non-drinker (finding) [facility] Start: 08-19-2023 Alcohol Comment Caffeine Intak e: Yes, pop [facility] Start: 11-14-2012 Sex Female (finding) [employer] How often to you hav e a drink containing alcohol? Never [employer] Start: 04-20-2025 End: 05-24-2025 Alcoholic beverage intake Ex-drinker (finding) [facility] Start: 04-20-2025 Alcohol Comment 1-2 times a year [facility] NEGATED: Highlighted rowStart: NINF History of tobacco use Passive smoker [facility] Functional Status Date Assessment Result [facility] [employer] Clinical Notes 12-23-2021 to 05-24-2025 Jennie Van [...] reflexes: Goyo's absent. Ankle clonus absent. Coordination Ezzlta-kq-wgpa, rapid alternating movements and jwmg-xp-jnwm normal bilaterally without dysmetria. Gait Casual gait: [...] current management plan documented in this encounter [facility] 05-23-2025 Telephone encount er Note Patient same day canceled due to her foot being in a boot and cannot drive by herself. [facility] 05-23-2025 Miscellaneous Notes Formattin g of this note might be different from the original. Patient same day canceled due to her foot being in a boot and cannot drive by herself. documented in this encounter [facility] 04-20-2025 History of Presen t illness Narrative [...] visit with xra documented in this encounter [facility] 04-14-2025 Evaluation note Diagnosis Chronic renal impairment, [...] stage 3a (HCC) documented in this encounter [facility]07-10-2025 Evaluation note* Diagnosis Chronic renal impairment, stage 3a (HCC)- Primary Depression with anxiety Dysthymic disorder Gastroesophageal reflux disease without esophagitis Esophageal reflux Vitamin D deficiency Unspecified vitamin D deficiency Mixed hyperlipidemia BUCK on CPAP Obstructive sleep apnea (adult) (pediatric) Restless legs Restless legs syndrome (RLS) Hyperglycemia Other abnormal glucose Pain in right foot Pain in limb documented in this encounter [facility]07-03-2025 History of Present illness Narrative* Robbin Sánchez DPM - 04/06/2025 4:30 PM EDT Celina Gaspar is a 44 y.o. female presents with chief complaint of Foot Ulcer (RT toe 2 ulcer) HPI: HPI Pt has ulcer on RT toe 2 for about 2 wks. She went to [facility] ER on 04-04-25, xrays, culture and put [...] toe or midfoot but also Charcot MRI [facility] 04-11-25 11:30 AM, arrive at 11:00 AM. Pt notified. documented in this encounterSaint [facility] [id number] Evaluation note* Diagnosis Chronic renal impairment, stage 3a (HCC)- Primary Depression with anxiety Dysthymic disorder Gastroesophageal reflux disease without esophagitis Esophageal reflux Vitamin D deficiency Unspecified vitamin D deficiency Mixed hyperlipidemia BUCK on CPAP Obstructive sleep apnea (adult) (pediatric) Restless legs Restless legs syndrome (RLS) Hyperglycemia Other abnormal glucose Pressure injury of deep tissue of toe, unspecified laterality- Primary documented in this encounter [facility]06-10-2025 History of Present illness Narrative* [...] in about 6 weeks (around 04/25/2025), or BOND TRADER. Lab Frequency Next Occurrence Therapeutic injection carpal [...] vs 2.8, all supine; PLMI=3.6, PLMAI=0.6 (Syd[place], martelle) - MAINE=6.4, position not given PAPT ([place]) - AHI=1.8 @ 12 with REM; [...] ? [address] ? [place], [place] [address] ? ? fax Neurology ? Clinical Neurophysiology ? Epilepsy ? Sleep Disorders ? Clinical Informatics documented in this encounterSaint [facility] [id number] Evaluation note* Diagnosis Chronic renal impairment, stage [...] Other screening mammogram documented in this encounter [facility]05-12-2025 History of Present illness Narrative* [...] Depression: Not at risk (11/15/2024) Received from [facility] PHQ-2 PHQ-9 Total Score: [...] reflexes: Goyo's absent. Ankle clonus absent. Coordination Npnvvm-bb-gsws, rapid alternating movements and rgvf-ux-dswb normal bilaterally without dysmetria. Gait Normal casual, toe, heel and tandem gait. Romberg is absent. 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 She continues to have significant discomfort in her feet to interrupt her sleep. This is likely worsened by Jxwmjdd-Ygopn-Pdjix for which she had surgery in February [...] nasal pillows. She will take this to [facility] in [place]. We will get the original sleep study from [facility] for review. She is following with Dr. Block for sleep medicine. EVALUATION: PSG 03/2024 - CPAP [id number] w/heated humidification EMG of BUE 11/25 showed [...] by Tiffanie Casas MD documented in this encounterSaint [facility] [id number] History of Present illness Narrative* Lynn Block [...] Out of bed 0800. Noct oxim PSG ([place]) (BMI=39.1) - AHI=5.3, REM=21 vs 2.8, all supine; PLMI=3.6, PLMAI=0.6 (Sydnee, martelle) - MAINE=6.4, position not given PAPT ([place]/Angelina) [...] in all four extremities, including at least clerical assigner, finger abductors, biceps, triceps, deltoid, toe flexors [...] ? [address] ? [place], [place] [address] ? ? fax Neurology ? Clinical Neurophysiology ? Epilepsy ? Sleep Disorders ? Clinical Informatics documented in this encounterSaint [facility] RoadLikfljvkxy04-73-7860 Telephone encounter Note* Telephone Encounter - Janel Allen NP - 11/02/2024 9:16 PM EST Pharmacy sends medication clarification for nortriptyline as there are two directions on one received. Per ONUR Gunderson plan increase nortriptyline 50 mg 2 daily/bedtime total of 100 mg. [facility] [id number] Miscellaneous Notes* Telephone Encounter - Janel Allen NP - 11/02/2024 9:16 PM EST Pharmacy sends medication clarification for nortriptyline as there are two directions on one received. Per ONUR Gunderson plan increase nortriptyline 50 mg 2 daily/bedtime total of 100 mg. documented in this encounterSaint [facility] RoadBaakgeydpg05-88-5115 NoteOPG [address] (11) [facility] [address] MEDICAL OFFICE [facility] [address] Dept: [phone] Loc: [phone] MD Celina Browne 44 y.o. female Patient [...] Resource Strain: Medium Risk (05/08/2024) Received from [facility] Overall Financial Resource Strain (CARDIA) Difficulty of Paying Living Expenses: Somewhat hard Food Insecurity: No Food Insecurity (05/08/2024) Received from [facility] Hunger Vital Sign Worried About Running Out of Food in the Last Year: Never true Ran Out of Food in the Last Year: Never true Transportation Needs: Unknown (05/08/2024) Received from [facility] PRAPARE - Transportation Lack of Transportation (Non-Medical): No Housing Stability: Unknown (05/08/2024) Received from [facility] Housing Stability Vital Sign Unstable Housing [...] of submandibular glands, clear salivary flow from Musselshell's ducts, no stones of Musselshell's ducts Temporomandibular Joint: no crepitus with motion, no tenderness on palpation, no mayo (more content not included)...[facility] [id number] History of Present illness Narrative* Sherman Adair MD - 10/11/2024 10:05 AM EST [facility] [address] (11) [facility] [address] [facility] MED[facility] OFFICE [facility] [address] Dept: [phone] Loc: [phone] MD Celina Browne Dieudonne Gaspar 44 y.o. [...] Resource Strain: Medium Risk (05/08/2024) Received from [facility] Overall Financial Resource Strain (CARDIA) Difficulty of Paying Living Expenses: Somewhat hard Food Insecurity: No Food Insecurity (05/08/2024) Received from [facility] Hunger Vital Sign Worried About Running Out of Food in the Last Year: Never true Ran Out of Food in the Last Year: Never true Transportation Needs: Unknown (05/08/2024) Received from [facility] PRAPARE - Transportation Lack of Transportation (Non-Medical): No Housing Stability: Unknown (05/08/2024) Received from [facility] Housing Stability Vital Sign Unstable Housing [...] subma ndibular glands, clear salivary flow from Musselshell's ducts, no stones of Felipe's ducts Temporomandibular [...] Hematological: Negative. Psychiatric/Behavioral: Negative. documented in this [id number] Telephone encounter Note* Telephone Encounter - Gwen Fan - 09/14/2024 2:18 PM EST Voicemail Received: Our numbers [phone] actually have a question regarding a prescription that was prescribed today, If someone could please call me back. Thank you. Bye. [facility] [id number] Miscellaneous Notes* Telephone Encounter - Gwen Fan - 09/14/2024 2:18 PM EST Voicemail Received: Our numbers [phone] actually have a question regarding a prescription that was prescribed today, If someone could please call me back. Thank you. Mary Carmene. documented in this encounterSaint [facility] [id number] Miscellaneous Notes* Telephone Encounter - My Johnson - 08/11/2024 12:03 PM EST Patient called and requested refill of Lyrica to be sent to [facility] in [place]. documented in this [facility]11-07-2024 Telephone encounter Note* Telephone Encounter - My Alex - 08/11/2024 12:03 PM EST Patient called and requested refill of Lyrica to be sent to [facility] in [place]. [facility] [id number] History of Present illness Narrative* Tequila Obando [...] Grandfather Depression: At risk (01/28/2024) Received from [facility] PHQ-2 PHQ-9 Total Score: [...] reflexes: Goyo's absent. Ankle clonus absent. Coordination Bdaoqp-eh-nxjd, rapid alternating movements and lsuv-tx-uqfr normal bilaterally without dysmetria. Gait Normal casual, [...] Follow up 3 months. documented in this encounterSaint Luke[facility] [id number] History of Present illness Narrative* Cheryl Miles [...] to clinic: 3-6 months documented in this encounterSaint Luke[facility] [id number] History of Present illness Narrative* MASSIMO Shook [...] 2022. Shefollows with an outside provider in [place] and was immobilized for an extended period [...] Foot & Ankle Surgery documented in this [id number] NotePROCEDURE: XR ANKLE LT MIN 3 V, [...] Electronically authenticated by: PIPER MERCEDES Date: 2023-01-29 07:05[facility]04-27-2023 NotePROCEDURE: XR ANKLE LT MIN 3 V, [...] Electronically authenticated by: PIPER MERCEDES Date: 2023-01-29 07:05[facility]10-05-2022 History of Present illness Narrative* Samantha Lino [...] BMR: 1573 calories Est. total calorie needs: ~5200-5685 Lab Results Component Value Date/Time TRIG 460 [...] bread Supper: pork chop or chicken, homemade chinese fries, mashed, or baked potato with broccoli [...] duration: 55 minutes. documented in this encounterBON [facility] Work Phone: 1(778) 351-161905-04-2022 History of Present illness Narrative* Christel Donohue, PT - 02/05/2022 9:45 AM EDT [facility] Date: 02/05/2022 Patient Name: Celina Gaspar : 1980 Pt No Showed Appt- Follow up call, left message on voicemail that patient discharged, but to call if has questions or concerns. Christel Donohue, PT Date: 02/05/2022 documented in this [facility] Phone: 1(381) 674-108805-04-2022 Hospital course Narrative* Christel Donohue, PT - 02/05/2022 9:45 AM EDT Images from the original note were not included. [facility] Discharge Summary Patient: [...] Donohue, PT Date: 02/05/2022 documented in this [facility] Phone: 1(758) 620-757405-02-2022 History of Present illness Narrative* Jerica Melgar - 02/03/2022 10:30 AM EDT [facility] Date: 02/03/2022 Patient Name: Celina Gaspar : 1980 Pt Cancelled Appt due to no reason for cancel. Jerica Melgar Date: 02/03/2022 documented in this [facility] Work Phone: 1(788) 903-250404-27-2022 History of Present illness Narrative* Beverly Rangel, NATIONAL STORMWATER LEADER - 01/29/2022 9:00 AM EDT Images from the original note were not included. [facility] Daily Note Date: [...] Increase trunk ROM B rotation WFL-Not Met Regulatory Compliance Officer Goals - Time Frame for FDC goals : 10 Correction Goals Time Frame for FDC goals : 10 assistant terminal manager goal 1: Decrease pain low back 2/10 at worst x3 days for completing normal activities FDC goal 2: Patient to report 50% decrease in radicular symptoms L LE Post Treatment Pain: 5/10 Time In: 0859 Time Out: 0947 Timed Code Treatment Minutes: 48 Minutes Total Treatment Time: 48 Minutes Beverly Gutiérrez Rangel, NATIONAL STORMWATER LEADER Date: 01/29/2022 documented in this [facility] Work Phone: 1(314) 790-726004-25-2022 History of Present illness Narrative* Christel Donohue, PT - 01/27/2022 3:45 PM EDT Images from the original note were not included. [facility] Daily Note Date: [...] Increase trunk ROM B rotation WFL-Not Met Regulatory Compliance Officer Goals - Time Frame for assistant terminal manager goals : 10 Correction Goals Time Frame for assistant terminal manager goals : 10 assistant terminal manager goal 1: Decrease pain low back 2/10 at worst x3 days for completing normal activities assistant terminal manager goal 2: Patient to report 50% decrease in radicular symptoms L LE Post Treatment Pain: 4/10 Time In: 15:50 Time Out : 16:19 Timed Code Treatment Minutes: 34 Minutes Total Treatment Time: 34 Minutes Christel Donohue, PT Date: 01/27/2022 documented in this [facility] Phone: 1(466) 340-486104-22-2022 History of Present illness Narrative* Vanessa Garcia, PT - 01/24/2022 9:45 AM EDT Images from the original note were not included. [facility] Daily Note Date: [...] 4: Increase trunk ROM B rotation WFL Regulatory Compliance Officer Goals - Time Frame for FDC goals : 10 Correction Goals Time Frame for FDC goals : 10 FDC goal 1: Decrease pain low back 2/10 at worst x3 days for completing normal activities FDC goal 2: Patient to report 50% decrease in radicular symptoms L LE Post Treatment Pain: 5/10 Time In: 0952 Time Out: 1030 Timed Code Treatment Minutes: 38 Minutes Total Treatment Time: 38 Minutes Vanessa Garcia, THERESE Date: 01/24/2022 documented in this [facility] Phone: 1(494) 777-496704-20-2022 History of Present illness Narrative* Beverly Rangel, JENNIFER - 01/22/2022 4:45 PM EDT [facility] Date: 01/22/2022 Patient Name: Celina Gaspar : 1980 Patient did not show up for her appointment. Message left on answering machine with a reminder of her next appointment on Thursday. Beverly Rangel NATIONAL STORMWATER LEADER Date: 01/22/2022 documented in this [facility] Phone: [phone]) 117-936104-15-2022 History of Present illness Narrative* Beverly Rangel, NATIONAL STORMWATER LEADER - 01/17/2022 10:30 AM EDT Images from the original note were not included. [facility] Daily Note Date: 01/17/2022 Patient Name: Celina Gaspar : 1980 (41 y.o.) Referring Practitioner: Liliane Sawyer APRN, PLANOGRAPH OPERATOR Referral Date : 12/19/21 Diagnosis: Lumbar [...] 4: Increase trunk ROM B rotation WFL Correction Goals - Time Frame for assistant terminal manager goals : 10 assistant terminal manager goal 1: Decrease pain low back 2/10 at worst x3 days for completing normal activities assistant terminal manager goal 2: Patient to report 50% decrease in radicular symptoms L LE Post Treatment Pain: 5/10 Time In: 1037 Time Out: 1107 Timed Code Treatment Minutes: 30 Minutes Total Treatment Time: 30 Minutes Beverly Rangel, NATIONAL STORMWATER LEADER Date: 01/17/2022 documented in this encounterDay[facility] CenterDeg[facility] Phone: 1(978) 917-423304-11-2022 History of Present illness Narrative* Eve Gaspar ISAIAH - 01/13/2022 3:15 PM EDT [facility] Date: 01/13/2022 Patient Name: Celina Gaspar : 1980 Pt Cancelled Appt due to no reason given. Eve HannaPRESTON lazcano/Matthew Date: 01/13/2022 documented in this encounterDayton Va Medical [employer] Phone: 1(165) 550-586704-01-2022 History of Present illness Narrative* Beverly Brock Rangel, JENNIFER - 01/03/2022 9:45 AM EDT Images from the original note were not included. [facility] Outpatient Physical Therapy Daily Note Date: [...] 4: Increase trunk ROM B rotation WFL Regulatory Compliance Officer Goals - Time Frame for FDC goals : 10 FDC goal 1: Decrease pain low back 2/10 at worst x3 days for completing normal activities FDC goal 2: Patient to report 50% decrease in radicular symptoms L LE Post Treatment Pain: 5/10 Time In: 0948 Time Out: 1028 Timed Code Treatment Minutes: 40 Minutes Total Treatment Time: 40 Minutes Beverly Rangel, NATIONAL STORMWATER LEADER Date: 01/03/2022 [facility] Phone: 1(533) 683-484303-29-2022 History of Present illness Narrative* Cheryl Herman, OT - 12/31/2021 9:30 AM EDT Images from the original note were not included. [facility] Outpatient Occupational Therapy Daily Note Date: [...] Time Frame for Short term goals: STG=LTG Correction Goals Time Frame for assistant terminal manager goals : 12 visits (01/24/2022) FDC goal 1: pt to be indepenent in HEP-MET FDC goal 2: Pt to demonstrate R wrist flexion to 65 degrees or more in order to engage in daily tasks-MET assistant terminal manager goal 3: Pt to demonstrate R wrist extension to 60 degrees or more in order to engage in daily tasks-MET FDC goal 4: Pt to be educated on carpal tunnel do's & dont's in order to prevent further repetitive injury to wrist-MET Timed Code Treatment Minutes: 30 Minutes Time In: 915 Time Out: 945 Timed Coded Minutes: 30 Total Treatment Time: 30 THERESA Houser, OTR/L Date: 12/31/2021 documented [facility] this [facility] Phone: 1(271) 957-935203-29-2022 Hospital course Narrative* Cheryl Herman OT - 12/31/2021 9:30 AM EDT Images from the original note were not included. [facility] Outpatient Occupational Therapy Discharge Summary Patient: [...] has been provided w/ HEP for continued pinch/clerical assigner strengthening & stretching. Therapist provided pt with handout on Carpal Tunnel Dos & Dont's to avoid re-injury. Prognosis: Fair Goals Short Term Goals Time Frame for Short term goals: STG=LTG Correction Goals Time Frame for FDC goals : 12 visits (01/24/2022) FDC goal 1: pt to be indepenent in HEP-MET FDC goal 2: Pt to demonstrate R wrist flexion to 65 degrees or more in order to engage in daily tasks-MET assistant terminal manager goal 3: Pt to demonstrate R wrist extension to 60 degrees or more in order to engage in daily tasks-MET assistant terminal manager goal 4: Pt to be educated on carpal tunnel do's & dont's in order to prevent further repetitive injury to wrist-MET Reason for Discharge [] Poor Follow Through [] Completion of Prescribed Sessions [x] Optimal Function Achieved [] Patient Discharged Self [x] Goals Achieved Comments: Thank you for this referral THERESA Houser, OTR/L Date: 12/31/2021 documented [facility] this [facility] Phone: [phone]) [phone] History of Present illness Narrative* Christel Donohue, PT - 12/31/2021 8:30 AM EDT Images from the original note were not included. [facility] Outpatient Physical Therapy Evaluation Date: 12/31/2021 Patient: Celina Gaspar : 1980 Referring Practitioner: Liliane Sawyer APRN, PLANOGRAPH OPERATOR Referral Date : 12/19/21 Diagnosis: Lumbar [...] 4: Increase trunk ROM B rotation WFL assistant terminal manager goals Time Frame for FDC goals : 10 FDC goal 1: Decrease pain low back 2/10 at worst x3 days for completing normal activities assistant terminal manager goal 2: Patient to report 50% decrease in radicular symptoms L LE Patient's Goal: Decrease back pain to complete normal activities Timed Code Treatment Minutes: 15 Minutes Total Treatment Time: 45 Time In: 8:30 Time Out: 9:15 Christel Donohue, PT Date: 12/31/2021 documented in this [facility] Phone: 1(994) 157-942303-28-2022 History of Present illness Narrative* Cheryl Herman, OT - 12/30/2021 8:30 AM EDT Images from the original note were not included. [facility] Outpatient Occupational Therapy Daily Note Date: [...] Time Frame for Short term goals: STG=LTG Correction Goals Time Frame for FDC goals : 12 visits (01/24/2022) FDC goal 1: pt to be indepenent in HEP-MET assistant terminal manager goal 2: Pt to demonstrate R wrist flexion to 65 degrees or more in order to engage in daily tasks-MET FDC goal 3: Pt to demonstrate R wrist extension to 60 degrees or more in order to engage in daily tasks-MET FDC goal 4: Pt to be educated on carpal tunnel do's & dont's in order to prevent further repetitive injury to wrist-MET Time In: 835 Time Out: 915 Timed Coded Minutes: 40 Total Treatment Time: 40 THERESA Houser, OTR/L Date: 12/30/2021 documented in this [facility] [employer] Phone: 1([phone]) 576-100503-21-2022 History of Present illness Narrative* Cheryl Herman OT - 12/23/2021 8:30 AM EDT Images from the original note were not included. [facility] Outpatient Occupational Therapy Evaluation Date: 12/23/2021 [...] completing these mvmts Left Hand Strength - Concrete Rubber (lbs) Handle Setting 2: 54#, 50#, 53# (52.3# ave) Left Hand Strength - Pinch (lbs) Lateral: 13.5# Tip: 8# Palmar 3 point: 11# Right Hand Strength - Concrete Rubber (lbs) Handle Setting 2: 53#, 54#, 53# [...] Time Frame for Short term goals: STG=LTG FDC goals Time Frame for assistant terminal manager goals : 12 visits (01/24/2022) FDC goal 1: pt to be indepenent in HEP FDC goal 2: Pt to demonstrate R wrist flexion to 65 degrees or more in order to engage in daily tasks FDC goal 3: Pt to demonstrate R wrist extension to 60 degrees or more in order to engage in daily tasks assistant terminal manager goal 4: Pt to be educated on carpal tunnel do's & dont's in order to prevent further repetitive injury to wrist Patient's Goal: pt wishes to return to prior function Time In: 830 Time Out: 924 Timed Coded Minutes: 0 Total Treatment Time: 54 THERESA Houser, OTR/L 12/23/2021 documented in this [facility] Phone: evaluation note* Diagnosis Viral illness Unspecified viral infection, in conditions classified elsewhere and of unspecified site documented in this encounter [employer] Phone: [email or web address] note* Diagnosis Suspected COVID-19 virus infection documented in this encounter [employer] Phone: evaluation note* Diagnosis Acute cystitis with hematuria Acute cystitis documented in this encounter [employer] Phone: evaluation note* Diagnosis Difficult or painful urination Dysuria documented in this encounter [employer] Phone: [email or web address] note* Diagnosis Acute cystitis with hematuria Acute cystitis Recurrent UTI Urinary tract infection, site not specified documented in this encounter [employer] Phone: evalvbwidx note* Diagnosis Frequent UTI Urinary tract infection, site not specified Urinary urgency Urgency of urination Urinary frequency documented in this encounter [employer] Phone: [email or web address] note* Diagnosis Frequent UTI Urinary tract infection, site not specified Urinary urgency Urgency of urination Urinary frequency documented in this encounter [employer] Phone: evaltldwco note* Diagnosis MRSA (methicillin resistant Staphylococcus aureus) septicemia (HCC) Methicillin resistant staphylococcus aureus septicemia [facility] noteNo assessment information availableOhio[facility] Work Phone: Evaluation note* Diagnosis Fatigue, unspecified type Encounter for screening for HIV Mixed hyperlipidemia Hyperglycemia Other abnormal glucose Chronic renal impairment, stage 3b (HCC) documented in this encounter [facility] Phone: evaluation note* Diagnosis Acute cystitis with hematuria Acute cystitis documented in this encounter [facility] Phone: evaluation note* Diagnosis Neck mass Swelling, mass, or lump in head and neck documented in this encounter [facility] Phone: [email or web address] note* Diagnosis Pain of foot, unspecified laterality Closed nondisplaced fracture of second metatarsal bone of left foot, initial encounter Closed nondisplaced fracture of lateral cuneiform of left foot, initial encounter documented in this encounter [facility] Phone: [email or web address] note* Diagnosis Foreign body (FB) in soft tissue Residual foreign body in soft tissue documented in this encounter [facility] Phone: evaluation note* Diagnosis Pelvic pressure in female Other specified symptom associated with female genital organs documented in this encounter [facility] Phone: evaluation note* Diagnosis Charcot arthropathy of midfoot- Primary Gastrocnemius equinus, unspecified laterality Foot pain, left Pain in soft tissues of limb [facility] Diagnosis Mixed hyperlipidemia documented in this [facility]* Diagnosis Idiopathic progressive polyneuropathy Non-seasonal allergic rhinitis due to pollen [facility]* Diagnosis Thyroid nodule Nontoxic uninodular goiter documented in this encounter [facility]* Diagnosis Thyroid nodule- Primary Nontoxic uninodular goiter [facility]* Diagnosis BUCK on CPAP- Primary 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 (CMS/HCC) Restless legs Restless legs syndrome (RLS) Bilateral carpal tunnel syndrome Carpal tunnel syndrome documented [facility]* Diagnosis Idiopathic progressive polyneuropathy- Primary Bilateral carpal tunnel syndrome Carpal tunnel syndrome Restless legs Restless legs syndrome (RLS) Intractable 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 (CMS/HCC) documented [facility]* Diagnosis BUCK (obstructive sleep apnea) Obstructive sleep apnea (adult) (pediatric) Hypersomnia Hypersomnia, unspecified Snoring Other dyspnea and respiratory abnormality Class 2 obesity due to excess calories with body mass index (BMI) of 38.0 to 38.9 in adult, unspecified whether serious comorbidity present documented [facility] this [facility]* Diagnosis Idiopathic progressive polyneuropathy Non-seasonal allergic rhinitis due to pollen documented in this [facility]* Diagnosis Thyroid nodule- Primary Nontoxic uninodular goiter Lipoma of neck [facility] Diagnosis 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 (CMS/HCC) documented [facility] this [facility]* Diagnosis BUCK on CPAP- Primary Idiopathic progressive polyneuropathy Restless legs Restless legs syndrome (RLS) Intractable 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 (CMS/HCC) documented [facility]* Diagnosis Pre-diabetes Other abnormal glucose Mixed hyperlipidemia [facility]* Diagnosis BUCK (obstructive sleep apnea)- Primary Obstructive sleep apnea (adult) (pediatric) BUCK on CPAP Claustrophobia (CMS/HCC) Other isolated or specific phobias documented [facility]* Diagnosis BUCK (obstructive sleep [...] through Care Everywhere. * Diabetic Foot Ulcer (Austrian) [facility] Narrative* Other (Routine) - Closed Specialty Diagnoses / Procedures Referred By Contac t Referred To Contact Radiology Diagnoses Encounter for screening mammogram for malignant neoplasm of breast Procedures NITA BRIAN DIGITAL SCREEN BILATERAL Back, MD Felipe [address] [place] [id number] Phone: tel: fax: Referral ID Status Reason Start Date Expiration Date Visits Re quested Visits Authorized [id number] Closed 01/29/2025 01/29/2026 1 1 [facility] Narrative* Imaging (Emergency) - Pending Review Specialty Diagnoses / Procedures Referred By Thor bernal Referred To Contact Radiology Diagnoses Pain in right foot Procedures MRI FOOT RIGHT W WO CONTRAST Robbin Sánchez, DPDieudonne [address] [facility], [place] [address] Phone: tel: fax: Referral ID Status Reason Start Date Expiration Date V isits Requested Visits Authorized [id number] Pending Review 04/11/2025 04/10/2026 1 1 [facility] Summary Purpose Family History No Family [...] on File Type Date Recorded Patient Manager Core Expl anation Advance Directives and Living Will Power of Student Development Advisor Latest Code Status on File Code Status Date Activated Date Inactivated Comments Full Code 08/15/2018 4:17 PM 08/25/2018 8:55 PM Full Code 03/19/2017 1:37 PM 03/19/2017 4:32 PM Full Code 03/19/2017 10:57 AM 03/19/2017 1:37 PM Full Code 03/05/2017 12:56 PM 03/05/2017 3:55 PM Full Code 03/05/2017 10:05 AM 03/05/2017 12:56 PM Documents on File Type Date Recorded Patient Manager Core Expl anation ACP-Advance Directive ACP-Power of Student Development Advisor Documents on File Type Date Recorded Patient Manager Core Expl anation ACP-Advance Directive ACP-Power of Student Development Advisor Latest Code Status on File Code Status [...] Everywhere. * Back Care Basics: General Info (Austrian) * Back: Preventing Injuries (Austrian) documented in this encounter Reason for Referral Status Reason Specialty Diagnoses / Procedures Referre d By Contact Referred To Contact Closed Radiology Diagnoses Brachial neuritis Peripheral nerve disorder Spasm of muscle Procedures MR Cervical Spine Without Contrast Tiffanie Casas MD [address] [place] [address] Specialty Diagnoses / Procedures Referred By Liangac t Referred To Contact Radiology Diagnoses Neck mass Procedures US HEAD NECK SOFT TISSUE THYROID Felipe Adam MD [address] [place] [address] Referral ID Status Reason Start Date Expiration Date Visits Re quested Visits Authorized [id number] Closed 05/27/2022 05/27/2023 1 1 Specialty Diagnoses / Procedures Referred By Thor bernal Referred To Contact Radiology Diagnoses Thyroid nodule Procedures US THYROID Felipe Adam MD [address] [place] [address] Referral ID Status Reason Start Date Expiration Date V isits Requested Visits Authorized [id number] Pending Review 09/06/2024 08/26/2025 1 1 Chief Complaint and Reason for Visit Chief Complaint M54.16 M79.10 M79.60 9 R20.9 Chief Complaint Unknown Additional Source Comments INFORMATION SOURCE (unrecogn ized section and content) DATE CREATED AUTHOR 03/30/[address] [facility] DATE CREATED AUTHOR AUTHOR'S ORGANIZ ATION 03/30/2018 [facility] DATE CREATED AUTHOR AUTHOR'S ORGANIZ ATION 09/15/2018 [facility] DATE CREATED AUTHOR AUTHOR'S ORGANIZ ATION 09/23/2018 [facility] DATE CREATED AUTHOR AUTHOR'S ORGANIZ ATION 09/26/2018 [facility] DATE CREATED AUTHOR AUTHOR'S ORGANIZ ATION 12/10/2018 [facility] DATE CREATED AUTHOR AUTHOR'S ORGANIZ ATION 12/18/2018 [facility] DATE CREATED AUTHOR AUTHOR'S ORGANIZ ATION 02/11/2019 [facility] DATE CREATED AUTHOR AUTHOR'S ORGANIZ ATION 11/30/2021 [facility] DATE CREATED AUTHOR AUTHOR'S ORGANIZ ATION 05/01/2022 [facility] DATE CREATED AUTHOR AUTHOR'S ORGANIZ ATION 01/12/2023 [facility] DATE CREATED AUTHOR AUTHOR'S ORGANIZ ATION 02/15/2023 [facility] DATE CREATED AUTHOR AUTHOR'S ORGANIZ ATION 04/04/2023 [facility] DATE CREATED AUTHOR AUTHOR'S ORGANIZ ATION 02/20/2024 [facility] DATE CREATED AUTHOR AUTHOR'S ORGANIZ ATION 10/17/2024 [facility] DATE CREATED AUTHOR AUTHOR'S ORGANIZ ATION 02/14/2025 [facility] DATE CREATED AUTHOR AUTHOR'S ORGANIZ ATION 2025 [facility] EP[facility] DATE CREATED AUTHOR AUTHOR'S ORGANIZ ATION [facility]/13/[address] Reason for Visit (unrecogniz ed section and content) Reason Comments Sleep Apnea Specialty Diagnoses / Procedures Referred By Thor bernal Referred To Contact Neurology Diagnoses BUCK on CPAP Procedures OR OFFICE/OUTPATIENT NEW HIGH MDM 60 MINUTES Fozia Meng, BOND TRADER [address], [facility] [address] [place] [address] Phone: tel: fax: Lynn Block MD [address] [facility] [address] [place] [address] Phone: tel: fax: Referral ID Status Reason Start Date Expiration Date V isits Requested Visits Authorized [id number] Closed Specialty Services Required 11/14/2024 05/13/2025 1 1 Status Reason Specialty Diagnoses / Procedures Referre d By Contact Referred To Contact Closed Radiology Diagnoses Brachial neuritis Peripheral nerve disorder Spasm of muscle Procedures MR Cervical Spine Without Contrast Tiffanie Casas MD [address] [address] Specialty Diagnoses / Procedures Referred By Contac t Referred To Contact Occupational Therapy Diagnoses Carpal tunnel syndrome Carpal Tunnel Syndrome Procedures Eval and treat Keenan Lozano MD [address] [facility] [address] [place] [address] [facility] [address] [place] [address] Referral ID Status Reason Start Date Expiration Date Visits Re quested Visits Authorized [id number] Open 12/19/2021 12/19/2022 1 1 Specialty Diagnoses / Procedures Referred By Contac t Referred To Contact Physical Therapy Diagnoses Radiculopathy, lumbar region Lumbar Radiculopathy Procedures Eval and treat Janel Allen, REFRACTIVE SURGEON - PLANOGRAPH OPERATOR [address] [address] [facility] [address] [place] [address] Referral ID Status Reason Start Date Expiration Date Visits Re quested Visits Authorized [id number] Open 12/19/2021 12/19/2022 1 1 Specialty Diagnoses / Procedures Referred By Contac t Referred To Contact Radiology Diagnoses Neck mass Procedures US HEAD NECK SOFT TISSUE THYROID Back, MD Felipe [address] [place] [address] Referral ID Status Reason Start Date Expiration Date Visits Re quested Visits Authorized [id number] Closed 05/27/2022 05/27/2023 1 1 Specialty Diagnoses / Procedures Referred By Liangac t Referred To Contact Radiology Diagnoses Pain of foot, unspecified laterality Closed nondisplaced fracture of lateral cuneiform of left foot, initial encounter Procedures MRI FOOT LEFT W WO CONTRAST MRI FOOT LEFT W WO CONTRAST Robbin Sánchez, DPM [address] [facility], [address] [place] [id number] Referral ID Status Reason Start Date Expiration Date Visits Re quested Visits Authorized [id number] Closed 06/20/2022 06/20/2023 1 1 Reason Comments Education Class Specialty Diagnoses / Procedures Referred By Thor t Referred To Contact Diabetes Services Diagnoses Pre-diabetes Felipe Adam MD [address] [place] [address] [facility] [address] [place] [address] Referral ID Status Reason Start Date Expiration Date V isits Requested Visits Authorized [id number] Open Specialty Services Required 06/30/2022 06/30/2023 2 2 Specialty Diagnoses / Procedures Referred By Thor t Referred To Contact Diabetes Services Diagnoses Pre-diabetes Felipe Adam MD [address] [phone] [facility] [address] [place] [phone] Reason Comments Other Left foot charcot on -going since 06/2022. New x-rays today. 2nd of opinion. Specialty Diagnoses / Procedures Referred By Thor t Referred To Contact Radiology Diagnoses Thyroid nodule Procedures US THYROID Felipe Adam MD [address] [phone] Referral ID Status Reason Start Date Expiration Date V isits Requested Visits Authorized [id number] Pending Review 09/06/2024 08/26/2025 1 1 Reason Onset Date Comments Med Refill 10/05/2024 Reason Comments New Patient FNA - THYROID NODULE Specialty Diagnoses / Procedures Referred By Thor bernal Referred To Contact Otolaryngology Diagnoses Thyroid nodule Back, MD Felipe [address] [place] [address] Phone: tel: fax: Sherman Adair MD [address] [phone] Phone: tel: fax: Referral ID Status Reason Start Date Expiration Date V isits Requested Visits Authorized [id number] Pending Review 09/09/2024 09/09/2025 1 1 Reason [...] Care Teams (unrecognized sec tion and content) Nursing Technician Relationship Specialty Start Date End Date Back, MD Felipe [address] [place] [address] PCP - General Internal Medicine 11/14/11 Nursing Technician Relationship Specialty Start Date End Date Back, MD Felipe [address] [place] [address] PCP - General Internal Medicine 11/14/11 Nursing Technician Relationship Specialty Start Date End Date Back, MD Felipe [address] [place] [address] PCP - General Internal Medicine 11/14/11 Nursing Technician Relationship Specialty Start Date End Date Back, MD Felipe [address] [place] [phone] PCP - General Internal Medicine 11/14/11 Nursing Technician Relationship Specialty Start Date End Date Back, MD Felipe [address] [place] [address] PCP - General Internal Medicine 11/14/11 Nursing Technician Relationship Specialty Start Date End Date Back, MD Felipe [address] [place] [address] PCP - General Internal Medicine 11/14/11 Nursing Technician Relationship Specialty Start Date End Date Back, MD Felipe [address] [place] [address] PCP - General Internal Medicine 11/14/11 Team Status: Inactive Member Role Status Dates NON STAFF Primary Care Provider Active Tiffanie Casas MD Attending Provider Active Team Status: Active Member Role Status Dates NON STAFF Primary Care Provider Active Nursing Technician Relationship Specialty Start Date End Date Back, MD Felipe [address] [place] [address] PCP - General Internal Medicine 11/14/11 Nursing Technician Relationship Specialty Start Date End Date Back, MD Felipe [address] [place] [address] PCP - General Internal Medicine 11/14/11 Nursing Technician Relationship Specialty Start Date End Date Back, MD Felipe [address] [place] [address] PCP - General Internal Medicine 11/14/11 Nursing Technician Relationship Specialty Start Date End Date Back, MD Felipe [address] [place] [address] PCP - General Internal Medicine 11/14/11 Nursing Technician Relationship Specialty Start Date End Date Back, MD Felipe [address] [place] [address] PCP - General Internal Medicine 11/14/11 Nursing Technician Relationship Specialty Start Date End Date Back, MD Felipe [address] [facility] PCP - General Internal Medicine 11/14/11 Nursing Technician Relationship Specialty Start Date End Date Back, MD Felipe [address] [facility], [place] [address] PCP - General Internal Medicine 11/14/11 Nursing Technician Relationship Specialty Start Date End Date Back, MD Felipe [address] [facility], [place] [address] PCP - General Internal Medicine 11/14/11 Nursing Technician Relationship Specialty Start Date End Date Back, MD Felipe [address] [place] [address] PCP - General Internal Medicine 03/26/15 Nursing Technician Relationship Specialty Start Date End Date Back, MD Felipe [address] [facility], [place] [address] PCP - General Internal Medicine 11/14/11 Team Status: Inactive Member Role Status Dates Frances Harris DPM MS Attending Provider Active Start: February 15, 2024 End: February 15, 2024 Nursing Technician Relationship Specialty Start Date End Date Back, MD Felipe [address] [facility], [place] [address] PCP - General Internal Medicine 11/14/11 Nursing Technician Relationship Specialty Start Date End Date Back, MD Felipe [address] [facility], [place] [address] PCP - General Internal Medicine 11/14/11 Nursing Technician Relationship Specialty Start Date End Date Back, MD Felipe [address] [place] [id number] PCP - General Internal Medicine 03/26/15 Nursing Technician Relationship Specialty Start Date End Date Back, MD Felipe [address] [place] [address] PCP - General Internal Medicine 03/26/15 Nursing Technician Relationship Specialty Start Date End Date Back, MD Felipe [address] [facility], [place] [address] PCP - General Internal Medicine 11/14/11 Nursing Technician Relationship Specialty Start Date End Date Back, MD Alcides [address] [facility], [place] [address] PCP - General Family Medicine 12/08/24 Nursing Technician Relationship Specialty Start Date End Date Back, MD Alcides [address] [place] [address] PCP - General Family Medicine 12/08/24 Nursing Technician Relationship Specialty Start Date End Date Back, MD Felipe [address] [place] [address] PCP - General Internal Medicine 11/14/11 Nursing Technician Relationship Specialty Start Date End Date Back, MD Alcides [address] [place] [address] PCP - General Family Medicine 12/08/24 Nursing Technician Relationship Specialty Start Date End Date Back, MD Felipe [address] [facility], [place] [address] PCP - General Internal Medicine 11/14/11 Nursing Technician Relationship Specialty Start Date End Date Back, MD Alcides [address] [facility], [place] [address] PCP - General Family Medicine 12/08/24 Nursing Technician Relationship Specialty Start Date End Date Back, MD Alcides [address] [place] [address] PCP - General Family Medicine 12/08/24 Nursing Technician Relationship Specialty Start Date End Date Back, MD Alcides [address] [place] [address] PCP - General Family Medicine 12/08/24 Nursing Technician Relationship Specialty Start Date End Date Back, MD Alcides [address] [place] [address] PCP - General Family Medicine 12/08/24 Nursing Technician Relationship Specialty Start Date End Date Back, MD Felipe [address] [place] [address] PCP - General Internal Medicine 11/14/11 Nursing Technician Relationship Specialty Start Date End Date Back, MD Felipe [address] [place] [address] PCP - General Internal Medicine 11/14/11 Nursing Technician Relationship Specialty Start Date End Date Back, MD Alcides [address] [place] [address] PCP - General Family Medicine 12/08/24 Nursing Technician Relationship Specialty Start Date End Date Back, MD Felipe [address] [place] [address] PCP - General Internal Medicine 11/14/11 Nursing Technician Relationship Specialty Start Date End Date Back, MD Alcides [address] [place] [address] PCP - General Family Medicine 12/08/24 Nursing Technician Relationship Specialty Start Date End Date Alcides Adam MD [address] [place] [address] PCP - General Family Medicine 12/08/24 Goals [...] BE BASED ON THE PRIMARY CLINICAL RECORDS. [facility]. provides no warranty or guarantee of the accuracy or completeness of information in this document.
== END 2025-06-28 10:46 | disposition home or self-care (01) ==
LOC: WC 10:46
PROVIDERS: PCP Internal Medicine; Visit Provider Podiatrist Foot & Ankle Surgery
DX: E11.621 Type 2 diabetes mellitus with foot ulcer (principal); L97.422 Non-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 with fat layer exposed
CPT/HCPCS: 11042

== ENCOUNTER 2025-07-19 10:50 | Outpatient (OUT) | payer OTHER, SELFPAY ==
--- OUTSIDE RECORDS SUMMARY | 2025-07-19 10:52 | XMS_ITS | Continuity of Care Document ---
Author Organization [facility] Address [address] [place] [id number] Phone [phone] Care Team Providers Care Application Support Analyst Name Role Phone Back, Alcides MELENDREZ Care Team Information Intelligence Specialist + [phone] Problems Active Problems Provider Date Chronic kidney disease stage 3 Nate Villar Onset: 06/09/2014 Chronic glomerulonephritis Doug Klein M.D. O nset: 06/09/2014 Non-steroidal anti-inflammatory agent Doug carlson M.D. Onset: 06/09/2014 Pyelonephritis Heather Forbes M.D. Onset: 04/06 Pure hyperglyceridemia Heather Forbes M.D. Onse t: 05/04/2018 Gastroesophageal reflux disease Heather Forbes M.D. Onset: 05/04/2018 Abdominal pain Doug Kleni M.D. Onset: 05/04 Family History Date Family Member(s) Observation Comments Mother Lung Cancer Mother Kidney Disease Social History Type Date Description Comments Sex Female Tobacco Use Start: Unknown Patient has never smoked Smoking Status Reviewed: 06/13/25 Patient has never sm oked Results Test Acquired Date Facility Test Result H/L Range Note .Urine Protein/Creat. Random 06/12/2025 [place] .Urine Protein Random <4 .Urine Creatini ne Random 52.4 .V Ipth-Vitamin D 06/12/2025 [place] .Ipth 40.0 .Vitamin D, 25 Hydroxy 29.2 .Renal Panel 06/12/2025 [place] .Albumin 4.2 .Calcium 9.2 .Carbon Dioxide 24 .Chloride 99 .Phosphorus 3.9 .Potassium 4.5 .Sodium 135 .BUN 23 .GFR 51 High 20 .Creatinine-LC 1.3 .Urine Protein/Creat. Random 05/10/2024 [place], [place] [phone] .Urine Protein Random 9 .Urine Creatini ne Random 132.0 .Urine Prot/Cre at Ratio 0.07 .Magnesium 05/10/2024 [place] .Magnesium 2.2 .Urinalysis-Rout ine 05/10/2024 [place] Ua Specific [place] Smet 1.020 Ua PH Test Strip 5.0 Ua Color yellow Ua Appearance clear Ua Protein trace Ua Glucose negative Ua Ketones negative Ua Bilirubin negative Ua Urobilinogen normal Ua Nitrite negative Ua Occult Blood negative .Renal Panel 05/10/2024 [place], [place] [phone] .Albumin 4.2 .Calcium 9.2 .Carbon Dioxide 25 .Chloride 101 .Phosphorus 3.8 .Potassium 4.0 .Sodium 141 .BUN 19 .GFR 52 High 20 .Creatinine-LC 1.3 .Renal Panel 05/17/2023 [place] .Albumin 4.1 .Calcium 9.5 .Carbon Dioxide 29 .Chloride 101 .Phosphorus 3.0 .Potassium 4.3 .Sodium 137 .BUN 17 .GFR >60 High 20 .Creatinine-LC 1.1 .Urine Protein/Creat. Random 05/17/2023 [place], [place] [phone] .Urine Protein Random 10 .Urine Creatini ne Random 146.1 .Urine Prot/Cre at Ratio 0.07 .Ipth 05/17/2023 [place], [place] [phone] .Ipth 47.1 .Vitamin D, 25 Hydroxy 05/17/2023 [place], [place] [phone] .Vitamin D, 25 Hydroxy 53.1 .Urine Protein/Creat. Random 05/20/2022 [place] .Urine Protein Random 7 .Urine Creatini ne Random 97.1 .Urine Prot/Cre at Ratio 0.07 .Tibc-LC 05/20/2022 [place] .Tibc-LC 263 .Ferritin 05/20/2022 [place] .Ferritin 164 .Iron 05/20/2022 [place] .Iron 48 .Transferrin-LC 05/20/2022 [place] .Transferrin-LC 280 .T-Sat-LC 05/20/2022 [place] .T-Sat-LC 0.18 .V Ipth-Vitamin D 05/20/2022 [place] .Ipth 39.91 .Vitamin D, 25 Hydroxy 35.3 .Magnesium 05/20/2022 [place] .Magnesium 2.1 .Hemoglobin And Hematocrit 05/20/2022 [place] .Hemoglobin Blood 11.1 .Hematocrit 33.3 .Renal Panel 05/20/2022 [place] .Albumin 4.4 .Calcium 10.0 .Carbon Dioxide 30 .Chloride 105 .Phosphorus 3.8 .Potassium 4.3 .Sodium 144 .BUN 18 .GFR 53 High 20 .GFR 53 High 20 .Creatinine-LC 1.13 .Renal Panel (Other Labs) 05/21/2021 [place] .Albumin 4.2 .Calcium 9.2 .Carbon Dioxide 25 .Chloride 103 .Creatinine-LC 1.18 .Phosphorus 3.7 .Sodium 138 .BUN 19 .GFR 50 High 20 .Potassium 4.2 .Urine Protein/Creat. Random 05/21/2021 [place] .Urine Protein Random 7 .Urine Creatini ne Random 115.7 .Magnesium 05/21/2021 [place], [place] [phone] .Magnesium 2.2 .Urinalysis-Rout ine 05/21/2021 [place] Ua Specific [place] 1.020 Ua PH Test Strip 5.0 Ua Color YELLOW Ua Appearance CLEAR Ua Protein TRACE Ua Glucose NEGATIVE Ua Ketones NEGATIVE Ua Urobilinogen NORMAL Ua Occult Blood NEGATIVE .Ua 05/25/2020 [place], [place] [phone] Ua Appearance clear Ua Bilirubin - Ua Blood - Ua Color yellow Ua Glucose 100mg/dl Ua Leuko - Ua Nitrite - Ua PH Test Strip 6.0 Ua Protein - Ua Specific De Smet 1.020 Ua Urobilinogen - .Urine Protein/Creat. Random 05/25/2020 [place], [place] [phone] .Urine Protein Random 8 .Urine Creatini ne Random 101.2 .Urine Prot/Cre at Ratio 0.08 .Renal Panel 05/25/2020 [place] .Albumin 4.4 .Calcium 10.1 .Carbon Dioxide 26 .Chloride 104 .Creatinine-LC 1.37 .Phosphorus 87 .Sodium 140 .BUN 24 .GFR-LC 43 High 20 .Potassium 4.6 .Renal Panel 06/17/2019 [place], [place] [phone] .Albumin 4.3 .Calcium 10.4 .Carbon Dioxide 24 .Chloride 103 .Creatinine-LC 1.27 .Phosphorus 3.0 .Sodium 140 .BUN 18 .GFR-LC 47 High 20 .Potassium 3.8 .Ua 06/17/2019 [place] Ua Appearance HAZY Ua Bacteria 1+ Ua Bilirubin NEG Ua Blood NEG Ua Color YELLOW Ua Epithelial Cells QL 2-5 Ua Glucose NEG Ua Ketones NEG Ua Leuko NEG Ua Nitrite NEG Ua PH Test Strip 6.0 Ua Protein TRACE Ua Specific De Smet 1.025 Ua Urobilinogen NORMAL Ua WBC 0-2 .Urine Protein/Creat. Random 06/17/2019 [place] .Urine Protein Random 18 .Urine Creatini ne Random 228.2 .Urine Prot/Cre at Ratio 0.08 .Magnesium 06/17/2019 [place] .Magnesium 2.3 .Hemoglobin And Hematocrit 06/17/2019 [place], [place] [phone] .Hemoglobin Blood 12.1 .Hematocrit 35.4 .Renal Panel -LC 04/14/2018 [place] .Albumin 3.7 .Calcium 8.9 .Carbon Dioxide 30 .Chloride 101 .Creatinine-LC 1.28 .Phosphorus 3.6 .Sodium 140 .BUN 19 .GFR-LC 47 High 20 .Potassium 4.1 .Urine Protein/Creat. Random 04/14/2018 [place], [place] [phone] .Urine Protein Random 7 .Urine Creatini ne Random 100.7 .Urine Prot/Cre at Ratio 0.07 .CBC W/Differential 04/14/2018 [place], [place] [phone] .White Blood Count 8.6 .Red Blood Count 4.40 .Hemoglobin Blood 13.3 .Hematocrit 39.4 MCH (Corpuscula r Hemoglobin) 30.2 MCHC (Corpuscul ar Hemog Conc) 33.7 RDW 15.6 .Platelet Count Blood 232 Neutrophils 59 Fluid Lymphocytes 31 Monocytes 6 Fluid Body Eosinophils 3 Basophils % 1 Absolute Basophils 0.10 Absolute Eosinophils 0.20 Absolute Lymphocytes 2.70 Absolute Monocytes 0.50 .Ipth 04/14/2018 [place], [place] [phone] .Ipth 63.56 Xray 11/18/[address], Abdomen, W/ Contrast SEE REPORT Xray 11/18/[address], Abdomen, W/ Contrast CORTICAL CYST L KIDY .Urinalysis-Cult ure 11/17/2017 [facility] [phone] Culture Urine NO SIGNIFICANT H .Urinalysis-Rout ine 11/17/2017 [facility] [phone] Ua Specific De Smet 1.014 Ua PH Test Strip 6.0 Ua [...] 54 High 20 .Urine Prot/Creat Ratio 02/17/2017 [place], [place] [phone] .Urine Prot/Creat Ratio 0.07 Miscellaneous Other 02/17/2017 [place] Mis Test - Put Test In Order completed .Renal Panel -LC 02/17/2017 [place] .Albumin 4.1 .Calcium 9.4 .Carbon Dioxide [...] ar Hemog Conc) 34.1 Urine Culture 06/08/2015 [place] Culture Urine Routine see report .Urinalysis-Rout ine 06/08/2015 [place] Ua Specific [place] 1.020 Ua PH Test Strip 5.0 Ua Color yellow Ua Appearance clear Ua Protein negative Ua Glucose negative Ua Bilirubin negative Ua Urobilinogen normal Ua Nitrite negative .Urine Protein/Creat. Random 06/08/2015 [place], [place] [phone] .Urine Protein Random 13 .Urine Creatini ne Random 219.4 .Urine Prot/Cre at Ratio 0.05 .Renal Panel 06/08/2015 [place], [place] [phone] .Albumin 4.0 .Calcium 8.9 .Carbon Dioxide 26 .Chloride 101 .Creatinine-LC 1.29 .Phosphorus 3.0 .Potassium 3.6 .Sodium 139 .BUN 14 .GFR-LC 47 High 20 .Hemoglobin And Hematocrit 06/08/2015 [place] .Hemoglobin Blood 12.8 .Hematocrit 38.2 .Ua 12/29/2014 [place] Ua Appearance clear Ua Bilirubin negative Ua Blood trace Ua Color yellow Ua Epithelial Cells QL 2 to 5 Ua Glucose negative Ua Leuko negative Ua Nitrite negative Ua PH Test Strip 5.0 Ua Protein negative Ua RBC 0 to 2 Ua Specific De Smet 1.020 Ua Urobilinogen normal .Renal Panel 12/29/2014 [place] .Albumin 4.1 .Calcium 9.7 .Carbon Dioxide 30 .Chloride 102 .Creatinine-LC 1.50 .Phosphorus 4.2 .Potassium 4.1 .Sodium 142 .BUN 18 .GFR-LC 40 High 20 .Urine Protein/Creat. Random 12/29/2014 [place] .Urine Protein Random 6 .Urine Creatini ne Random 126.0 .Urine Prot/Cre at Ratio 0.05 .Renal Panel 12/06/2014 [place] .Albumin 4.0 .Calcium 9.2 .Carbon Dioxide 28 .Chloride 101 .Creatinine-LC 1.32 .Phosphorus 3.0 .Potassium 4.3 .Sodium 139 .BUN 17 .GFR-LC 46 High 20 .Urine Protein/Creat. Random 12/06/2014 [place] .Urine Protein Random 7 .Urine Creatini ne Random 196.8 .Urine Prot/Cre at Ratio 0.04 .Ua 12/06/2014 [place], [place] [phone] Ua Appearance clear Ua Bacteria 1+ Ua Bilirubin negative Ua Blood trace Ua Color yellow Ua Epithelial Cells QL 2 to 5 Ua Glucose negative Ua Leuko negative Ua Nitrite negative Ua PH Test Strip 6.0 Ua Protein negative Ua RBC 2 to 5 Ua Specific De Smet 1.020 Ua Urobilinogen normal .Complement C3 06/13/2014 [place] .Complement C3 140 .Magnesium 06/13/2014 [place] .Magnesium 2.3 .Calcium 06/13/2014 [place] .Calcium 9.1 .Phosphorus 06/13/2014 [place] .Phosphorus 3.8 .Urine Protein 24HR 06/13/2014 [place], [place] [phone] .Urine Protein Total 24H 63 .Urinalysis-Rout ine 06/13/2014 [place], [place] [phone] Ua Specific De Smet 1.015 Ua PH Test Strip 6.0 Ua Color YELLOW Ua Appearance CLEAR Ua Protein NEGATIVE Ua Glucose NEGATIVE Ua Bilirubin NEGATIIVE Ua Urobilinogen NORMAL Ua Nitrite NEGATIVE .V Ipth-Vitamin D 06/13/2014 [place], [place] [phone] .Ipth 49.31 .Vitamin D, 25 Hydroxy 28.9 .Anca Panel-LC 06/13/2014 [place] .Anca-C 30 .Anca-P 7 .Urine Protein Elect Ran 06/13/2014 [place], [place] [phone] Urine Interpretation NORMAL .GBM Antibody-LC 06/13/2014 [place] .Anti-GBM- 4 .Complement Total (CH50) 06/13/2014 [place] .Complement Total (CH50) 115 .Complement C4 06/13/2014 [place] .Complement C4 29 .Ipth 06/13/2014 [place] .Ipth 49.31 .Lipid Panel 06/13/2014 [place] .Cholesterol 41 .Cholester/HDL Ratio 5.6 High Density Lipoprotein 41 .LDL/HDL Ratio 58 .LDL Cholesterol 131 .Triglycerides 289 .Immunofixation- Urine 06/13/2014 [place] .Immunofixation-U rine NEGATIVE .Vitamin D, 25 Hydroxy 06/13/2014 [place] .Vitamin D, 25 Hydroxy 28.9 .Cryoglobulin 06/13/2014 [place] .Cryoglobulin 0 .Hepatitis B-Surface Antigen 06/13/2014 [place] .Hepatitis B-Surface Antigen NON REACTIVE .Hepatitis C 06/13/2014 [place] .Hepatitis C NON REACTIVE .Immunofixation- Serum 06/13/2014 [place] .Immunofixation-S genesis NEGATIVE .Hemoglobin And Hematocrit 06/13/2014 [place] .Hemoglobin Blood 13.0 .Hematocrit 37.9 .Urine Eosinophils Random 06/13/2014 [place] .Urine Eosinophils Random NONE SEEN .BUN 06/13/2014 [place] .BUN 18 .Creatinine-LC 06/13/2014 [place] .Creatinine-LC 1.27 .GFR-LC 06/13/2014 [place] .GFR-LC 58 High 20 .Sodium 06/13/2014 [place] .Sodium 138 .Potassium 06/13/2014 [place] .Potassium 4.4 .Chloride 06/13/2014 [place] .Chloride 103 .Carbon Dioxide 06/13/2014 [place] .Carbon Dioxide 27 .Renal Panel 05/30/2014 [facility] [phone] .Albumin 3.9 .Calcium 9.3 .Carbon Dioxide 27 .Chloride 101 .Creatinine-LC 1.41 .Potassium 3.6 .Sodium 136 .BUN 16 .GFR-LC 42 High 20 .GFR 51 High 20 .GFR 42 High 20 .Urinalysis-Rout ine 05/30/2014 [facility] [phone] Ua Specific De Smet 1.030 Ua PH Test Strip 5.0 Ua [...] Provider Dx Diagnosis Office Visit 06/14/2025 2:20p [facility] Heather Forbes M.D. N11.9 Chronic tubulo-interstitial nephritis, unspecified N18.31 Chronic kidney disea se, stage 3a Office Visit 05/13/2024 1:00p [facility] SHUKRI Sebastian N11.9 Chronic tubulo-interstitial nephritis, unspecified N18.31 Chronic kidney disea se, stage 3a Office Visit 05/18/2023 11:00a [facility] Jerica Stokes N11.9 Chronic tubulo-interstitial nephritis, unspecified N18.31 Chronic kidney disea se, stage 3a D50.9 Iron deficiency anem ia, unspecified E55.9 Vitamin D deficiency , unspecified Office Visit 05/23/2022 11:00a [facility] KikeJerica galindo N11.9 Chronic tubulo-interstitial nephritis, unspecified N18.31 Chronic kidney disea se, stage 3a D50.9 Iron deficiency anem ia, unspecified E55.9 Vitamin D deficiency , unspecified Office Visit 05/22/2021 1:30p [facility] Tequila Giles NP N11.9 Chronic tubulo-interstitial nephritis, unspecified N18.30 Chronic kidney disea se, stage 3 unspecified Office Visit 06/08/2020 11:20a [facility] Heather Forbes M.D. N11.9 Chronic tubulo-interstitial nephritis, unspecified N18.3 Chronic kidney disea se, stage 3 (moderate) Office Visit 06/22/2019 10:00a [facility] Heather Forbes M.D. N11.9 Chronic tubulo-interstitial nephritis, unspecified N18.3 Chronic kidney disea se, stage 3 (moderate) Office Visit 05/04/2018 10:20a [facility] Heather Forbes M.D. N11.9 Chronic tubulo-interstitial nephritis, unspecified N18.3 Chronic kidney disea se, stage 3 (moderate) Office Visit 03/13/2017 2:00p [facility] Heather Forbes M.D. N11.9 Chronic tubulo-interstitial nephritis, unspecified N18.3 Chronic kidney disea se, stage 3 (moderate) E78.1 Pure hyperglyceridem ia Office Visit 06/15/2015 1:00p [facility] Heather king M.D. 585.3 Chronic Kidney Disease Stage 3 582.89 Interstitial Nephrit is 530.81 Esophageal Reflux Office Visit 12/15/2014 1:00p [facility] BRENDEN Boyer 585.3 Chronic Kidney Disease Stage 3 582.89 Interstitial Nephrit is V58.64 [facility] (Current)Us e Of Non-Steroid Antiinflammatories 530.81 Esophageal Reflux Office Visit 07/07/2014 11:40a [facility] Heather high M.D. 585.3 Chronic Kidney Disease Stage 3 582.89 Interstitial Nephrit is V58.64 [facility] (Current)Us e Of Non-Steroid Antiinflammatories 530.81 Esophageal Reflux Office Visit 06/09/2014 1:00p [facility] Matheus gno 585.3 Chronic Kidney Disease Stage 3 582.89 Interstitial Nephrit is V58.64 [facility] (Current)Us e Of Non-Steroid Antiinflammatories 789.00 Pain Abdominal Unspe c Site Assessments Date Code Description Provider 06/14/2025 N11.9 Chronic tubulo-i nterstitial nephritis, unspecified Heather Kamadana M.D. 06/14/2025 N18.31 Chronic kidney disease, staenriqueta geronimo 3a Heather Forbes M.D. 05/13/2024 N11.9 Chronic tubulo-i nterstitial nephritis, unspecified SHUKRI Sebastian 05/13/2024 N18.31 Chronic kidney disease, joyce geronimo 3a SHUKRI Sebastian 05/18/2023 N11.9 Chronic tubulo-i nterstitial nephritis, unspecified Kike, Jerica 05/18/2023 N18.31 Chronic kidney disease, staenriqueta e 3a Harwick, Jerica 05/18/2023 D50.9 Iron deficiency anemia, unsp ecified [place], Jerica 05/18/2023 E55.9 Vitamin D deficiency, unspec ified Kike, Jerica 05/23/2022 N11.9 Chronic tubulo-i nterstitial nephritis, unspecified [place], Jerica 05/23/2022 N18.31 Chronic kidney disease, stag e 3a [place], Jerica 05/23/2022 D50.9 Iron deficiency anemia, unsp ecified Kike, Jerica 05/23/2022 E55.9 Vitamin D deficiency, unspec ified [place], Jerica 05/22/2021 N11.9 Chronic tubulo-i nterstitial nephritis, unspecified Heather Benjaminadana M.D. 05/22/2021 N11.9 Chronic tubulo-i nterstitial nephritis, unspecified Tequila Giles NP 05/22/2021 N18.30 Chronic kidney disease, stag e 3 unspecified Heather Benjaminadana M.D. 05/22/2021 N18.30 Chronic kidney disease, stag e 3 unspecified Tequila N Wehr, BABY STROLLER RENTAL CLERK 06/08/2020 N11.9 Chronic tubulo-i nterstitial nephritis, unspecified [...] Chronic Kidney Disease Stage 3 Cheryl Palomo, EXPENSE CLERK 12/15/2014 582.89 Interstitial Nephritis Cheryl Palomo, EXPENSE CLERK 12/15/2014 V58.64 [facility] (Curren t)Use Of Non-Steroid Antiinflammatories Cheryl Palomo, EXPENSE CLERK 12/15/2014 530.81 Esophageal Reflux Cheryl liang, EXPENSE CLERK 07/07/2014 585.3 Chronic Kidney Disease Stage 3 Heather Kamadana M.D. 07/07/2014 582.89 Interstitial Nephritis Swapn a Kamadana M.D. 07/07/2014 V58.64 [facility] (Currmeir t)Use Of Non-Steroid Antiinflammatories Heather Forbes M.D. 07/07/2014 530.81 Esophageal Reflux Heather stevens M.D. 06/09/2014 585.3 Chronic Kidney Disease Stage 3 Doug Klein M.D. 06/09/2014 582.89 Interstitial Nephritis Kenroy Klein M.D. 06/09/2014 V58.64 [facility] (Curren t)Use Of Non-Steroid Antiinflammatories Doug Klein M.D. 06/09/2014 789.00 Pain Abdominal Unspec Site S yasmin Klein M.D.
--- OUTSIDE RECORDS SUMMARY | 2025-07-19 10:53 | XMS_ITS | Clinical Summary ---
Author Organization [facility] Address [address] [place] [address] Care Team Providers Care Roller Cleaner Name Role Phone Felipe Adam MD Primary Care Provider [phone] Allergies Active Allergy Reactions Criticality Noted Date [...] 10:30 AM EST Office Visit [facility] [address] [facility] [place] [address] Dimas Adair MD [address] [place] [id number] Health Maintenance Due Date Last Done Comments [...] Screen Negative Negative 10/21/2017 9:47 AM EST [facility] Blood BLOOD SPECIMEN / Unknown 10/20/2017 5:25 PM EST 10/20/2017 10:58 PM EST Narrative [facility] - 10/21/2017 9:47 AM EST Test performed using [employer] Immunodiagnostic system. us Edu Parry MD LAB BLOOD ORDERABLES Lou l Result [facility] [address] [place] [address] * High Risk HPV with Genotype 16,18 (03/20/2017 12:00 AM EDT) HPV 16 Negative Negative 04/01/2017 2:01 PM EDT [facility] HPV 18 Negative Negative 04/01/2017 2:01 PM EDT [facility] HPV, Other HR Types Negative Negative 04/01/2017 2:01 PM EDT [facility] Pap, Liquid Based CERVIX UTERI STRUCTURE / Unknown 03/20/2017 03/31/2017 9:32 PM EDT Narrative [facility] - 04/01/2017 2:01 PM EDT Assay performed using [employer] Twin 4800 system utilizing Real-Time PCR to amplify target HPV DNA. This system specifically identifies HPV16 and HPV18 while concurrently detecting the other twelve high risk types (31,33,35,39,45,51,52,56,58,59,66,68). Shanice Richard DO BODY FLUIDS AND STO OLS ORDERABLES Final Result [facility] [address] [place] [address] * Thinprep Pap Smear (03/20/2017 12:00 AM [...] HPV DNA. This system specifically identifies HPV16 [id number] while concurrently detecting the other twelve high risk types(31,33,35,39,45,51,52,56,58,59,66,68). Completed by on 2017-04-02 Electronically Signed By Arielle NEFF (ASCP) , Hydraulic Jack Mechanic (Case signed 03/30/2017) The Papanicolaou smear is a screening tool, and like any screen, has an inherent false negative rate. Interpretation of results should be made in the context of patient history and clinical findings. Shanice Leemary Jose Manuel DO PATHOLOGY/CYTOLOGY ORDERABLES Final Result [facility] from Last 3 Months or Most Recently Relevant to Health Maintenance Insurance [facility] HMO/CHOICE PLUS/DULCE/DULCE PLUS Care Teams Roller Cleaner Relationship Specialty Start Date End Date Back, MD Felipe [address] [place] [address] PCP - General Internal Medicine 03/26/15
--- OUTSIDE RECORDS SUMMARY | 2025-07-19 10:53 | XMS_ITS | Encounter Summary ---
Author Organization [facility] Address [address] [place] [address] Care Team Providers Care Cutter And Paster Press Clippings Name Role Phone Felipe Adam MD Primary Care Provider [phone] Encounter Details Date Type Department Care Team (Late st Contact Info) Description 05/01/2015 Abstract [facility] [address] [place] [phone] Hali Gallegos MA Social History Tobacco Use [...] Description 10/12/2025 10:30 AM EST Office Visit [facility] [address] [facility] [place] [address] Dimas Adair MD [facility] [address] [place] [address] documented as of this encounter Visit Diagnoses Not on filedocumented in this encounter Care Teams Cutter And Paster Press Clippings Relationship Specialty Start Date End Date Back, MD Felipe [address] [place] [id number] PCP - General Internal Medicine 03/26/15 documented as of this encounter
--- OUTSIDE RECORDS SUMMARY | 2025-07-19 10:53 | XMS_ITS | Encounter Summary ---
Author Organization [facility] Address [address] [place] [address] Care Team Providers Care Top Case Assembler Name Role Phone Alcides Adam MD Primary Care Provider [phone] Reason for Visit * Reason Comments Med Refill Encounter Details Date Type Department Care Team (Late st Contact Info) Description 07/20/2023 Refill [facility] [address] [facility] [address] [place] [address] Trace Casas MD [address] [facility] [address] [place] [id number] Idiopathic progressive polyneuropathy Social History Tobacco Use [...] Office Visit [facility] [address] [facility] [address] [place] [phone] Jennie Barajas APRN-SIDE STITCHER [address] [place], [place] [id number] 08/29/2025 11:45 AM EST Office Visit [facility] [address] [facility] [address] [place] [address] Nash Block MD [address] [facility] [address] [id number] documented as of this encounter Visit Diagnoses Diagnosis Idiopathic progressive polyneuropathy documented in this encounter Care Teams Top Case Assembler Relationship Specialty Start Date End Date Back, MD Alcides [address] [place] [address] PCP - General Family Medicine 12/08/24 documented as of this encounter
--- OUTSIDE RECORDS SUMMARY | 2025-07-19 10:53 | XMS_ITS | Clinical Summary ---
Author Organization [facility] Address [address] [place] [address] Care Team Providers Care Material Specialist Name Role Phone Back, Alcides MELENDREZ Primary Care Provider [phone] Allergies No known active allergies Medications Cetirizine [...] (09/29/2017): Added automatically from request for surgery [id number] Basal cell carcinoma of skin of face [...] DISCUSSION 2024 TETANUS 09/08/2024 09/08/2014 COVID-19 VACCINE ( - 2024-2 6 season) 2025 INFLUENZA VACCINE (#1) 2025 TDAP (ADULT) Completed 09/08/2014 PNEUMOCOCCAL VACCINE SERIES Aged Out No longer eligible based on patient's age to complete this topic Insurance Care Teams Material Specialist Relationship Specialty Start Date End Date Back, MD Alcides [address] [place] [address] PCP - General Internal Medicine 07/31/17
--- OUTSIDE RECORDS SUMMARY | 2025-07-19 10:53 | XMS_ITS | Encounter Summary ---
Author Organization [facility] Address [address] [facility] [place] [address] Care Team Providers Care Classified Advertising Clerk Name Role Phone Alcides Adam MD Primary Care Provider [phone] Encounter Details Date Type Department Care Team (Late Contact Info) Description 08/24/2023 Clinisync Result Encounter [facility] External Department Unsolicited Trace Casas MD [address] [address] Social History Tobacco Use Types [...] Upcoming Encounters Date Type Department Care Team ([facility] Contact Info) Description 08/23/2025 1:00 PM EST Office Visit [facility] [address] [facility] [place] [address] Jennie Barajas, SANITATION ENGINEER-POSTAL TRANSPORTATION CLERK [address] [place], [place] [id number] 08/29/2025 11:45 AM EST Office Visit [facility] [address] [place] [address] Nash Block MD [address] [facility] [address] [place] [address] documented as of this encounter [...] on filedocumented in this encounter Care Teams Classified Advertising Clerk Relationship Specialty Start Date End Date Back, Bill MD [address] [place], [place] [id number] PCP - General Family Medicine 12/08/24 documented as of this encounter
--- OUTSIDE RECORDS SUMMARY | 2025-07-19 10:53 | XMS_ITS | Clinical Summary ---
Author Organization [facility] Address [address] [place] [address] Care Team Providers Care Merchandise Planning Manager Name Role Phone Alcides Adam MD Primary Care Provider [phone] Allergies Active Allergy Reactions Criticality Noted Date [...] Orders: Ambulatory referral to Neurology Epidural abscess ([facility]) 08/20/2018 Septic arthritis 08/20/2018 Abdominal pain 05/04/2018 Pure hyperglyceridemia 05/04/2018 Pyelonephritis 05/04/2018 Neoplasm of uncertain behavior of skin 8 Peripheral neuropathy 12/01/2017 Basal cell carcinoma of skin of face 09/16/2017 Overview (03/08/2023): Added automatically from request for surgery [id number] Overview: Added automatically from request for surgery [id number] Mixed hyperlipidemia 03/19/2017 Carpal tunnel syndrome of [...] [address] [place] [phone] Cervical paraspinal muscle spasm 05/24/2025 11:30 AM EDT Office Visit [facility] [address] [place] [phone] Jennie Barajas, CATTLE AND WHEAT FARMER-ETCHER ELECTROLYTIC BUCK (obstructive sleep apnea) (Primary Dx); Cervical paraspinal muscle spasm; Cervical radiculopathy 05/24/2025 Telephone [facility] [address] [place] [phone] Gauri Jay MA TENS 05/24/2025 Bamboo flowsheet [facility] [address] [place] [phone] Jennie Barajas, CATTLE AND WHEAT FARMER-ETCHER ELECTROLYTIC 05/24/2025 Travel 05/23/2025 Telephone [facility] [address] [facility] [address] [place] [address] Nash Block MD 04/20/2025 12:45 PM EDT Office Visit [facility] [address] [place] [address] Dandy Sánchez, DPM MRSA (methicillin resistant staph aureus) culture positive (Primary Dx); Right foot pain; Skin ulcer of toe of right foot with fat layer exposed (HCC); Idiopathic progressive polyneuropathy; Infection of toe; Charcot arthropathy of midfoot; Ulcer of left foot, limited to breakdown of skin (HCC); Closed nondisplaced fracture of second metatarsal bone of right foot, initial encounter 04/20/2025 Bamboo flowsheet [facility] [address] [place] [address] Dandy Sánchez DPM 04/20/2025 Travel 04/19/2025 Travel from Last 3 Months Family History [...] Office Visit [facility] [address] [place] [address] Jennie Barajas, CATTLE AND WHEAT FARMER-ETCHER ELECTROLYTIC [address] [facility] [place] [address] 08/29/2025 11:45 AM EST Office Visit [facility] [address] [place] [address] Nash Block MD [address] [facility] [address] [place] [address] Procedures Procedure Name Priority Date/Time Associated Diagnosis Comments XR CERVICAL SPINE COMPLETE 4-5 VIEWS Routine 05/24/2025 12:45 PM EDT Cervical paraspinal muscle spasm from Last 3 Months Results * XR [...] BY: Gregorio Davila DO us Jennie Barajas CATTLE AND WHEAT FARMER-ETCHER ELECTROLYTIC IMG XR PROCEDURES Lou l Result from Last 3 Months Insurance [facility] Care Teams Merchandise Planning Manager Relationship Specialty Start Date End Date Back, MD Alcides [address] [place] [address] PCP - General Family Medicine 12/08/24
--- OUTSIDE RECORDS SUMMARY | 2025-07-19 10:53 | XMS_ITS | Clinical Summary ---
Author Organization [facility] Address [address] [place] [address] Phone Care Team Providers Care Electromechanical Technician Name Role Phone Unavailable Primary Care Provider [...]
--- OUTSIDE RECORDS SUMMARY | 2025-07-19 11:06 | XMS_ITS | CCD ---
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 Attending Provider [phone] Back , Felipe Primary Care Provider [phone] YOON COBB Referring Unavailable BACK, FELIPE Primary Care Unavailable Back , Felipe Primary Care Provider [employer]NAS Attending Unavail able BACK, FELIPE Primary Care Unavailable Back , Felipe Primary Care Provider [phone] FRANCES HARRIS Admitting Unavailable FRANCES HARRIS Attending Unavailable FRANCES HARRIS Consulting Unavailable FRANCES HARRIS Admitting Unavailable FRANCES HARRIS Attending Unavailable [facility], DR PIPER Ackerman Consulting Unavailable FRANCES HARRIS Consulting Unavailable FRANCES HARRIS Admitting Unavailable FRANCES HARRIS Attending Unavailable [place], DR EMILY Riojas Consulting Unavailable FRANCES HARRIS [...] Unavailable SHERMAN ADAIR Attending Unavailable Back , [facility] Primary Care Provider FOZIA MENG Attending Unavailable [...] sources) Chlorhexidine; Translations: [CHLORHEXIDINE] Drug Allergy 3 [facility] (11 sources) topiramate; Translations: [TOPIRAMATE] Drug Allergy 4 Other (See Comments) [facility] (20 sources) Topiramate Propensity to adverse reactions 4 [facility] (1 source) Chlorhexidine; Translations: [Chlorhexidine Gluconate] Drug Allergy [facility] Repository Medications Current Medications Medication Drug Class(es) [...] Start: 08-07-2022 take 1 capsule by mo [facility] once daily as needed for [...] oral tablet (1 source) alpha-Adrenergic Agonist, Uncompetitive X-vofghu-T-aspartate Receptor Antagonist, Sigma-1 Agonist Start: End: take 1 tablet by mouth every six hours as needed Fwxzrspyhuoanyw-WH-XZ (CAPMIST DM) 60-15-400 MG TABS Take 1 [...] 38.0 to 38.9 in adult ([facility]) Take 1 tablet by mouth every morning [...] 40.0 to 44.9 in adult ([facility]) Take 1 capsule by mouth every morning [...] Start: 08-25-2018 take 1 capsule by mo [facility] three times daily pregabalin (LYRICA) 150 MG capsule Indications: Epidural abscess , Discitis of thoracic region , Infection of thoracic spine ([facility]) , Peripheral polyneuropathy Take 1 capsule by [...] Start: 07-30-2020 take 2 tablets by mo [facility] once daily sertraline (ZOLOFT) 100 MG tablet Take 2 tablets by mouth daily Currently decreasing this medication 07/30/2020 Active Start: 07-30-2020 [facility] sertraline (ZOLOFT) 100 MG tablet Take 100 mg by mouth daily Currently decreasing this medication 0 07/30/2020 Active Start: 07-06-2019 take 2 tablets by mo [facility] once daily sertraline (ZOLOFT) 50 [...] of skin] Onset: 02-05-2018 08-03-2017 Episodic 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 infection and poliomyelitis (20 sources) Extradural [...] [Mass/Vol] 52.4 mg/dL 28.0 - 217.0 mg/dL [facility] Comment on above: Reference range defi radha for 1st morning urine Creatinine,Random Uron 06-12 Creatinine [Mass/Vol] 52.4 mg/dL Normal 28.0-217.0 [place] Comment on above: Result Comment: Refe rence range defined for 1st morning urine Performed By: #### U RTP, URCRE, PTHNCA, VD25 ####[employer] [address] [place], [place] [id number] Lab Director: Placido Pierce MD#### RENP ####[facility] Lpr3314 [place], [place] [phone] Lab Director: Emily George MD No Panel Informationon 06-12 [facility] PTH, Intacton 06-12-2025 Parathyrin.intact [Mass/Vol] 40.0 pg/mL 17.9 - 58.6 pg/mL [facility] PTH, Intact 40.0 pg/mL Normal 17.9-58.6 [facility] Comment on above: Performed By: #### U RTP, URCRE, PTHNCA, VD25 ####[facility] [address]nhdefbv[address]32 [place], [place] [id number] Lab Director: Placido Pierce MD#### RENP ####[facility] Amp4452 [place], [place] [phone] lab Director: Emily George MD Protein, urine, randomon Protein (U) [Mass/Vol] mg/dL mg/dL [facility] Comment on above: No normal range esta blished. Protein,Tot,Remer Uron 2024 Tot Prot. Conc. <4 Normal [facility] Comment on above: Result Comment: No n ormal range established. Performed By: #### U RTP, URCRE, PTHNCA, VD25 ####[facility] Cckcl[address]hav[address] [place], [place] [phone] lab Director: Placido Pierce MD#### RENP ####[facility] Vhv8558 [place], [place] [phone] lab Director: Emily George MD Renal Function Panelon 06-12 Albumin [Mass/Vol] 4.2 g/dL 3.5 - 5.2 g/dL [facility] Anion gap [Moles/Vol] 12 mmol/L 9 - 17 mmol/L [facility] Calcium [Mass/Vol] 9.2 mg/dL 8.6 - 10. 4 mg/dL [facility] Chloride [Moles/Vol] 99 mmol/L 98 - 10 7 mmol/L [facility] CO2 [Moles/Vol] 24 mmol/L 20 - 31 mmol/L [facility] Creatinine [Mass/Vol] 1.3 mg/dL High 0.5 - 0.9 mg/dL [facility] Est, Glom Filt Rate 51 Low - PINF [facility] Comment on above: These results are not [...] 110 mg/dL High 70 - 99 mg/dL [facility] Interpretation and review of laboratory results Abnormal [facility] Phosphate [Mass/Vol] 3.9 mg/dL 2.6 - 4 .5 mg/dL [facility] Potassium [Moles/Vol] 4.5 mmol/L 3.7 - 5.3 mmol/L [facility] Sodium [Moles/Vol] 135 mmol/L 135 - 144 mmol/L [facility] Urea nitrogen [Mass/Vol] 23 mg/dL High 6 - 20 mg/dL [facility] Albumin [Mass/Vol] 4.2 g/dL Normal 3.5-5.2 [facility] Comment on above: Performed By: #### U RTP, URCRE, PTHNCA, VD25 ####[facility] [address] [place] [address] Lab Director: Placido Pierce MD#### RENP ####[facility] Ohq6886 [place] [address] Lab Director: Emily George MD Anion gap [Moles/Vol] 12 mmol/L Normal 9-17 [place] Comment on above: Performed By: #### U RTP, URCRE, PTHNCA, VD25 ####[facility] [address]ampl[address]jj3119 [place], [place] [id number] Lab Director: Placido Pierce MD#### RENP ####[facility] [address] [place] [address] Lab Director: Emily George MD Calcium [Mass/Vol] 9.2 mg/dL Normal 8.6-10.4 [facility] Comment on above: Performed By: #### U RTP, URCRE, PTHNCA, VD25 ####[facility] [address]fkfprsc[address]hy50[address] [place], [place] [id number] Lab Director: Placido Pierce MD#### RENP ####[facility] Rkq2525 [place] [address] Lab Director: Emily George MD Chloride [Moles/Vol] 99 mmol/L Normal 98-107 [facility] Comment on above: Performed By: #### U RTP, URCRE, PTHNCA, VD25 ####[facility] Cgu[address]ox[address] [place], [place] [address])[phone] Director: Placido Pierce MD#### RENP ####[facility] Wgz9773 [place] [address]([facility])[phone] Director: Emily George MD CO2 [Moles/Vol] 24 mmol/L Normal 20-31 [facility] Comment on above: Performed By: #### U RTP, URCRE, PTHNCA, VD25 ####[place] [place] [address] Lab Director: Placido Pierce MD#### RENP ####[facility] Wmh6102 [place] [address] Lab Director: Emily George MD Creatinine [Mass/Vol] 1.3 mg/dL High 0.5-0.9 [place] Comment on above: Performed By: #### U RTP, URCRE, PTHNCA, VD25 ####[address] [address] Lab Director: Placido Pierce MD#### RENP ####[facility] [address] [place] [phone] Lab Director: Emily George MD GFR/1.73 sq M.predicted among non-blacks MDRD (S/P/Bld) [Vol rate/Area] 51 mL/min/{1.73_m2} Low >60 [facility] Comment on above: Result Comment: These [...] By: #### U RTP, URCRE, PTHNCA, VD25 ####[facility] [address]ro[address]894 [place] [address] Lab Director: Placido Peirce MD#### RENP ####[facility] Orn39[address] [place], [place] [address])[phone] Director: Emily George MD Glucose [Mass/Vol] 110 mg/dL High 70-99 [facility] Comment on above: Performed By: #### U RTP, URCRE, PTHNCA, VD25 ####[address] [address])[phone] Director: Placido Pierce MD#### RENP ####[facility] Bnl2086 [place], [place] [address])[phone] Director: Emily George MD Phosphorus, Inorg. 3.9 mg/dL Normal 2.6-4.5 [facility] Comment on above: Performed By: #### U RTP, URCRE, PTHNCA, VD25 ####[facility] [address] [place] [address] Lab Director: Placido Pierce MD#### RENP ####[facility] Tgo[address] [place], [place] [address])[phone] Director: Emily George MD Potassium [Moles/Vol] 4.5 mmol/L Normal 3.7-5.3 [place] Comment on above: Performed By: #### U RTP, URCRE, PTHNCA, VD25 ####[facility] X[address]uzfmsdqp3991 [place] [address] lab Director: Placido Pierce MD#### RENP ####[facility] [address] [place] [address] lab Director: Emily George MD Sodium [Moles/Vol] 135 mmol/L Normal 135-144 [facility] Comment on above: Performed By: #### U RTP, URCRE, PTHNCA, VD25 ####[facility] [address] [place] [address] lab Director: Placido Pierce MD#### RENP ####[facility] [address] [place], [place] [phone] lab Director: Emily George MD Urea nitrogen [Mass/Vol] 23 mg/dL High 6-20 [facility] Comment on above: Performed By: #### U RTP, URCRE, PTHNCA, VD25 ####[address] [address] lab Director: Placido Pierce MD#### RENP ####[facility] Unx6086 [place] [address] lab Director: Emily George MD Vitamin D 25 Hydroxyon 06-12 25-hydroxyvitamin D3 [Mass/Vol] 29.2 ng/mL Low 30.0 - 100.0 ng/mL [facility] Comment on above: Reference Range: Vitamin D status Range Deficiency <20 ng/mL Mild Deficiency 20-30 ng/mL Sufficiency 30-100 ng/mL Toxicity >100 ng/mL Interpretation and review of laboratory results Abnormal [facility] Vitamin D 25 OHon 06-12-2025 Vitamin D 25 [place] 29.2 ng/mL Low 30.0-100.0 [facility] Comment on above: Result Comment: Reference Range: Vitamin D status Range Deficiency <20 ng/mL Mild Deficiency 20-30 ng/mL Sufficiency 30-100 ng/mL Toxicity >100 ng/mL Performed By: #### U RTP, URCRE, PTHNCA, VD25 ####[facility] [address]znp7964 [place] [address] Lab Director: Placido Pierce MD#### RENP ####[facility] M[address] [place], [place] [phone] lab Director: Emily George MD XR CERVICAL [...] 12 mmol/L 9 - 17 mmol/L [facility] [employer] Calcium [Mass/Vol] 9.3 mg/dL 8.6 - 10. 4 mg/dL [facility] Chloride [Moles/Vol] 104 mmol/L 98 - 10 7 mmol/L [facility] CO2 [Moles/Vol] 22 mmol/L 20 - 31 mmol/L [facility] [employer] [facility] Creatinine [Mass/Vol] 1.3 mg/dL High 0.5 - 0.9 mg/dL [facility] Est, Glom Filt Rate 52 Low - PINF [facility] Comment on above: These results are not [...] 131 mg/dL High 70 - 99 mg/dL [facility] Potassium [Moles/Vol] 4.4 mmol/L 3.7 - 5.3 mmol/L [facility] Sodium [Moles/Vol] 138 mmol/L 135 - 144 mmol/L [facility] Urea nitrogen [Mass/Vol] 17 mg/dL 6 - 20 mg/dL [facility] Basic Metabolic Profon 05-15 Anion gap [Moles/Vol] 12 mmol/L Normal 9-17 [place] Comment on above: Performed By: #### S ED, MORPHX, CRP, BMP, CBC ####[facility] Rit6119 [place], [place] [phone] lab Director: Emily George MD Calcium [Mass/Vol] 9.3 mg/dL Normal 8.6-10.4 [facility] Comment on above: Performed By: #### S ED, MORPHX, CRP, BMP, CBC ####[facility] [address] [place] [address] lab Director: Emily George MD Chloride [Moles/Vol] 104 mmol/L Normal 98-107 [facility] Comment on above: Performed By: #### S ED, MORPHX, CRP, BMP, CBC ####[facility] Xzs[address] [place] [address] lab Director: Emily George MD CO2 [Moles/Vol] 22 mmol/L Normal 20-31 [facility] Comment on above: Performed By: #### S ED, MORPHX, CRP, BMP, CBC ####[facility] [address] [place] [address] lab Director: Emily George MD Creatinine [Mass/Vol] 1.3 mg/dL High 0.5-0.9 [place] Comment on above: Performed By: #### S ED, MORPHX, CRP, BMP, CBC ####[facility] Pov4885 [place] [address] lab Director: Emily George MD GFR/1.73 sq M.predicted among non-blacks MDRD (S/P/Bld) [Vol rate/Area] 52 mL/min/{1.73_m2} Low >60 [facility] Comment on above: Result Comment: These [...] #### S ED, MORPHX, CRP, BMP, CBC ####[facility] Ksm5496 [place] [address] lab Director: Emily George MD Glucose [Mass/Vol] 131 mg/dL High 70-99 [facility] Comment on above: Performed By: #### S ED, MORPHX, CRP, BMP, CBC ####[facility] Ucs3524 [place] [address] lab Director: Emily George MD Potassium [Moles/Vol] 4.4 mmol/L Normal 3.7-5.3 [place] Comment on above: Performed By: #### S ED, MORPHX, CRP, BMP, CBC ####[facility] Igb3756 [place] [address] lab Director: Emily eGorge MD Sodium [Moles/Vol] 138 mmol/L Normal 135-144 [facility] Comment on above: Performed By: #### S ED, MORPHX, CRP, BMP, CBC ####[facility] Ynu9410 [place] [address] lab Director: Emily George MD Urea nitrogen [Mass/Vol] 17 mg/dL Normal 6-20 [facility] Comment on above: Performed By: #### S ED, MORPHX, CRP, BMP, CBC ####[facility] Hoi3859 [place] [address] lab Director: Emily George MD C-Reactive Proteinon CRP High sensitivity method [Mass/Vol] 6.2 mg/L High 0.0 - 5.0 mg/L [facility] CRP [Mass/Vol] 6.2 mg/L High 0.0-5.0 [facility] Comment on above: Performed By: #### S ED, MORPHX, CRP, BMP, CBC ####[facility] Uuv6037 [place] [address] lab Director: Emily George MD CBCon 05-15-2025 Erythrocyte distribution width (RBC) [Ratio] 19.4 % High 12.1 - 15.2 % [facility] Hematocrit (Bld) [Volume fraction] 32.3 % Low 36.0 - 46.0 % [facility] Hemoglobin (Bld) [Mass/Vol] 9.9 g/dL Low 12.0 - 16.0 g/dL [facility] Interpretation and review of laboratory results Abnormal [facility] MCH (RBC) [Entitic mass] 28.0 pg 26.0 - 34.0 pg [facility] MCHC (RBC) [Mass/Vol] 30.7 g/dL Low 31.0 - 37.0 g/dL [facility] MCV (RBC) [Entitic vol] 91.2 fL 80.0 - 100.0 fL [facility] Platelet mean volume (Bld) [Entitic vol] 11.7 fL 6.0 - 12.0 fL [facility] Platelets (Bld) [#/Vol] 154 10*3/uL [facility] RBC (Bld) [#/Vol] 3.54 10*6/uL Low 4.00 - 5.2 0 m/uL [facility] WBC other (Bld) [#/Vol] 3.8 [facility] Erythrocyte distribution width (RBC) [Ratio] 19.4 % High 12.1-15.2 [facility] Comment on above: Performed By: #### S ED, MORPHX, CRP, BMP, CBC ####[facility] [address] [place] [address] Lab Director: Emily George MD Hematocrit (Bld) [Volume fraction] 32.3 % Low 36.0-46.0 [facility] Comment on above: Performed By: #### S ED, MORPHX, CRP, BMP, CBC ####[facility] Yvc[address] [place] [address] Lab Director: Emily George MD Hemoglobin (Bld) [Mass/Vol] 9.9 g/dL Low 12.0-16.0 [facility] Comment on above: Performed By: #### S ED, MORPHX, CRP, BMP, CBC ####[facility] [address] [place] [place] [address] Lab Director: Emily George MD MCH (RBC) [Entitic mass] 28.0 pg Normal 26.0-34.0 [facility] Comment on above: Performed By: #### S ED, MORPHX, CRP, BMP, CBC ####[facility] B[address] [place] [address] Lab Director: Emily George MD MCHC (RBC) [Mass/Vol] 30.7 g/dL Low 31.0-37.0 [place] Comment on above: Performed By: #### S ED, MORPHX, CRP, BMP, CBC ####[facility] [address] [place] [address] Lab Director: Emily George MD MCV (RBC) [Entitic vol] 91.2 fL Normal 80.0-100.0 [facility] Comment on above: Performed By: #### S ED, MORPHX, CRP, BMP, CBC ####[facility] Zxh76[address] [place] [address] Lab Director: Emily George MD Platelet mean volume (Bld) [Entitic vol] 11.7 fL Normal 6.0-12.0 [facility] Comment on above: Performed By: #### S ED, MORPHX, CRP, BMP, CBC ####[facility] Znm4[address] [place] [address] Lab Director: Emily George MD Platelets (Bld) [#/Vol] 154 10*3/uL Normal 140-450 [facility] Comment on above: Performed By: #### S ED, MORPHX, CRP, BMP, CBC ####[facility] [address] [place], [place] [phone] Director: Emily George MD RBC (Bld) [#/Vol] 3.54 10*6/uL Low 4.00-5.20 [facility] Comment on above: Performed By: #### S ED, MORPHX, CRP, BMP, CBC ####[facility] [address] [place], [place] [phone] Director: Emily George MD WBC (Bld) [#/Vol] 3.8 10*3/uL Normal 3.5-11.0 [facility] Comment on above: Performed By: #### S ED, MORPHX, CRP, BMP, CBC ####[facility] Hho[address] [place] [address] Lab Director: Emily George MD MORPHOLOGY CHECKon 5 Morphology Rehan (Bld) [Interp] MODERATE ANISOCYTOSIS [facility] Morphology Checkon 5 Morphology Rehan (Bld) [Interp] MODERATE Normal [facility] Comment on above: Result Comment: ANIS OCYTOSIS Performed By: #### S ED, MORPHX, CRP, BMP, CBC ####[facility] [address] [place], [place] [phone] Director: Emily George MD No Panel Informationon 05-15 Interpretation and review of laboratory results Abnormal [facility] Sedimentation Rateon 025 Sedimentation Rate 19 mm/Hr Normal 0-20 [facility] Comment on above: Performed By: #### S ED, MORPHX, CRP, BMP, CBC ####[facility] [address] [place], [place] [phone] Director: Emily George MD ESR Photometric method (Bld) [Velocity] 19 [facility] Comp Metabolic Profon 2024 Albumin [Mass/Vol] 4.2 g/dL Normal 3.5-5.2 [facility] Comment on above: Performed By: #### L IPR, GLYHGB #### [facility] [address] [place] [address] Pan Operator: Placido Pierce MD #### CP #### [facility] [address] [place] [address] Pan Operator: Emily George MD #### INSU #### [facility] [address] [place] [address] Pan Operator: Placido Pierce MD [facility] [address] [place] [address] Pan Operator: Emily George MD Albumin/Glob Ratio 1.4 Normal 1.0-2.5 [facility] Comment on above: Performed By: #### L IPR, GLYHGB #### [facility] [address] [place] [address] Pan Operator: Placido Pierce MD #### CP #### [facility] [address] [place] [address] Pan Operator: Emily George MD #### INSU #### [facility] [address] [place] [address] Pan Operator: Placido Pierce MD [facility] [address] [place] [address] Pan Operator: Emily George MD Alkaline Phos 109 U/L High 35-104 [facility] Comment on above: Performed By: #### L IPR, GLYHGB #### [facility] [address] [place] [address] Pan Operator: Placido Pierce MD #### CP #### [facility] [address] [place] [address] Pan Operator: Emily George MD #### INSU #### [address] [address] Pan Operator: Placido Pierce MD [facility] [address] [place] [address] Pan Operator: Emily George MD ALT [Catalytic activity/Vol] 23 U/L Normal 5-33 [facility] Comment on above: Performed By: #### L IPR, GLYHGB #### [address] [address] Pan Operator: Placido Pierce MD #### CP #### [facility] [address] [place] [address] Pan Operator: Emily George MD #### INSU #### [facility] [address] [place] [address] Pan Operator: Placido Pierce MD [facility] [address] [place] [address] Pan Operator: Emily George MD Anion gap [Moles/Vol] 14 mmol/L Normal 9-17 [place] Comment on above: Performed By: #### L IPR, GLYHGB #### [facility] [address] [place] [address] Pan Operator: Placido Pierce MD #### CP #### [facility] [address] [place] [address] Pan Operator: Emily George MD #### INSU #### [address] [address] Pan Operator: Placido Pierce MD [facility] [address] [place] [address] Pan Operator: Emily George MD AST [Catalytic activity/Vol] 22 U/L Normal <32 [facility] Comment on above: Performed By: #### L IPR, GLYHGB #### [address] [address] Pan Operator: Placido Pierce MD #### CP #### [facility] [address] [place] [address] Pan Operator: Emily George MD #### INSU #### [address] [address] Pan Operator: Placido Pierce MD [facility] [address] [place] [address] Pan Operator: Emily George MD Bilirubin [Mass/Vol] 0.5 mg/dL Normal 0.3-1.2 [facility] Comment on above: Performed By: #### L IPR, GLYHGB #### [address] [address] Pan Operator: Placido Pierce MD #### CP #### [facility] [address] [place] [address] Pan Operator: Emily George MD #### INSU #### [facility] [address] [place] [address] Pan Operator: Placido Pierce MD [facility] [address] [place] [address] Pan Operator: Emily George MD Calcium [Mass/Vol] 9.4 mg/dL Normal 8.6-10.4 [facility] Comment on above: Performed By: #### L IPR, GLYHGB #### [address] [address] Pan Operator: Placido Pierce MD #### CP #### [facility] [address] [place] [address] Pan Operator: Emily George MD #### INSU #### [address] [address] Pan Operator: Placido Pierce MD [facility] [address] [place] [address] Pan Operator: Emily George MD Chloride [Moles/Vol] 99 mmol/L Normal 98-107 [facility] Comment on above: Performed By: #### L IPR, GLYHGB #### [address] [address] Pan Operator: Placido Pierce MD #### CP #### [facility] [address] [place] [address] Pan Operator: Emily George MD #### INSU #### [address] [address] Pan Operator: Placido Pierce MD [facility] [address] [place] [address] Pan Operator: Emily George MD CO2 [Moles/Vol] 26 mmol/L Normal 20-31 [facility] Comment on above: Performed By: #### L IPR, GLYHGB #### [facility] [address] [place] [address] Pan Operator: Placido Pierce MD #### CP #### [facility] [address] [place] [address] Pan Operator: Emily George MD #### INSU #### [facility] [address] [place] [address] Pan Operator: Placido Pierce MD [facility] [address] [place] [address] Pan Operator: Emily George MD Creatinine [Mass/Vol] 1.4 mg/dL High 0.5-0.9 [place] Comment on above: Performed By: #### L IPR, GLYHGB #### [facility] [address] [place] [address] Pan Operator: Placido Pierce MD #### CP #### [facility] [address] [place] [address] Pan Operator: Emily George MD #### INSU #### [address] [address] Pan Operator: Placido Pierce MD [facility] [address] [place] [address] Pan Operator: Emily George MD GFR/1.73 sq M.predicted among non-blacks MDRD (S/P/Bld) [Vol rate/Area] 47 mL/min/{1.73_m2} Low >60 [facility] Comment on above: Result Comment: These [...] By: #### L IPR, GLYHGB #### [facility] [address] [place] [address] Pan Operator: Placido Pierce MD #### CP #### [facility] [address] [place] [address] Pan Operator: Emily George MD #### INSU #### [facility] [address] [place] [address] Pan Operator: Placido Pierce MD [facility] [address] [place] [address] Pan Operator: Emily George MD Glucose [Mass/Vol] 114 mg/dL High 70-99 [facility] Comment on above: Performed By: #### L IPR, GLYHGB #### [address] [address] Pan Operator: Placido Pierce MD #### CP #### [facility] [address] [place] [address] Pan Operator: Emily George MD #### INSU #### [address] [address] Pan Operator: Placido Pierce MD [facility] [address] [place] [address] Pan Operator: Emily George MD Potassium [Moles/Vol] 4.1 mmol/L Normal 3.7-5.3 [place] Comment on above: Performed By: #### L IPR, GLYHGB #### [facility] [address] [place] [address] Pan Operator: Placido Pierce MD #### CP #### [facility] [address] [place] [address] Pan Operator: Emily George MD #### INSU #### [address] [address] Pan Operator: Placido Pierce MD [facility] [address] [place] [address] Pan Operator: Emily George MD Protein [Mass/Vol] 7.2 g/dL Normal 6.4-8.3 [facility] Comment on above: Performed By: #### L IPR, GLYHGB #### [address] [address] Pan Operator: Placido Pierce MD #### CP #### [facility] [address] [place] [address] Pan Operator: Emily George MD #### INSU #### [address] [address] Pan Operator: Placido Pierce MD [facility] [address] [place] [address] Pan Operator: Emily George MD Sodium [Moles/Vol] 139 mmol/L Normal 135-144 [facility] Comment on above: Performed By: #### L IPR, GLYHGB #### [address] [address] Pan Operator: Placido Pierce MD #### CP #### [facility] [address] [place] [address] Pan Operator: Emily George MD #### INSU #### [address] [address] Pan Operator: Placido Pierce MD [facility] [address] [place] [address] Pan Operator: Emily George MD Urea nitrogen [Mass/Vol] 18 mg/dL Normal 6-20 [facility] Comment on above: Performed By: #### L IPR, GLYHGB #### [address] [place], [place] [phone] Pan Operator: Placido Pierce MD #### CP #### [facility] [address] [place], [place] [phone] Pan Operator: Emily George MD #### INSU #### [facility] [address] [place], [place] [phone] Pan Operator: Placido Pierce MD [facility] [address] [place], [place] [phone] Pan Operator: Emily George MD Comprehensive Metabolic Pane [facility] 04-14-2025 Albumin [Mass/Vol] 4.2 g/dL 3.5 - 5.2 g/dL [facility] Albumin/Globulin [Mass ratio] 1.4 {ratio} 1.0 - 2.5 [facility] ALP [Catalytic activity/Vol] 109 U/L High 35 - 104 U/L [facility] ALT [Catalytic activity/Vol] 23 U/L 5 - 33 U/L [facility] Anion gap [Moles/Vol] 14 mmol/L 9 - 17 mmol/L [facility] AST [Catalytic activity/Vol] 22 U/L NINF - 32 U/L [facility] Bilirubin [Mass/Vol] 0.5 mg/dL 0.3 - 1 .2 mg/dL [facility] Calcium [Mass/Vol] 9.4 mg/dL 8.6 - 10. 4 mg/dL [facility] Chloride [Moles/Vol] 99 mmol/L 98 - 10 7 mmol/L [facility] CO2 [Moles/Vol] 26 mmol/L 20 - 31 mmol/L [facility] Creatinine [Mass/Vol] 1.4 mg/dL High 0.5 - 0.9 mg/dL [facility] Est, Glom Filt Rate 47 Low - PINF [facility] Comment on above: These results are not [...] 114 mg/dL High 70 - 99 mg/dL [facility] Interpretation and review of laboratory results Abnormal [facility] Potassium [Moles/Vol] 4.1 mmol/L 3.7 - 5.3 mmol/L [facility] Protein [Mass/Vol] 7.2 g/dL 6.4 - 8.3 g/dL [facility] Sodium [Moles/Vol] 139 mmol/L 135 - 144 mmol/L [facility] Urea nitrogen [Mass/Vol] 18 mg/dL 6 - 20 mg/dL [facility] Hemoglobin A1Con 04-14-2025 Average glucose Estimated from glycated hemoglobin (Bld) [Mass/Vol] 123 mg/dL [facility] Comment on above: The ADA and AACC rec ommend providing the estimated average glucose result to permit better patient understanding of their HBA1c result. HbA1c (Bld) [Mass fraction] 5.9 % 4.0 - 6.0 % [facility] Glucose [Mass/Vol] 123 mg/dL Normal [facility] Comment on above: Result Comment: The ADA and AACC recommend providing the estimated average glucose result to permit better patient understanding of their HBA1c result. Performed By: #### L IPR, GLYHGB ####[facility] [address] [place] [address] Lab Director: Placido Pierce MD#### CP ####[facility] [address] [place], [place] [phone] Lab Director: Emily George MD#### INSU ####[facility] [place] [address] Lab Director: [facility] [address], [place] [id number] Lab Director: Emily George MD HbA1c (Bld) [Mass fraction] 5.9 % Normal 4.0-6.0 [facility] Comment on above: Performed By: #### L IPR, GLYHGB ####[facility] [address] [place], [place] [phone] Director: Placido Pierce MD#### CP ####[facility] [address] [place], [place] [phone] Director: Emily George MD#### INSU ####[address] [place], [place] [phone] Director: Placido Pierce, [facility] [address] [place], [place] [phone] Director: Emily George MD Insulinon 04-14-2025 Insulin 25.0 mU/L Normal [facility] Comment on above: Performed By: #### L IPR, GLYHGB ####[facility] [address] [place], [place] [phone] Director: Placido Pierce MD#### CP ####[facility] [address] [place], [place] [phone] Director: Emily George MD#### INSU ####[address] [place], [place] [phone] Director: Placido Pierce, [facility] [id number] [place], [place] [phone] Director: Emily George MD Reference Range Normal [facility] Comment on above: Result Comment: Fast in.6-24.9 30 min: 20-112 60 min: 29-88 90 min: 26-84 120 min: 22-79 Performed By: #### L IPR, GLYHGB ####[facility] [address] [place], [place] [phone] Director: Placido Pierce MD#### CP ####[facility] [address] [place] [address] Lab Director: Emily George MD#### INSU ####[facility] [place] [address] Lab Director: [facility] [address] [facility] [place] [address] Lab Director: Emily George MD Collection Info. FASTING Normal [facility] Comment on above: Performed By: #### L IPR, GLYHGB ####[facility] [place] [address] Lab Director: Placido Pierce MD#### CP ####[facility] [address] [place] [address] Lab Director: Emily George MD#### INSU ####[facility] [place] [address] Lab Director: Placido Pierce, [facility] [address] [place] [address] Lab Director: Emily George MD Insulin, Totalon 04-14-2025 Insulin 25.0 mU/L [facility] Insulin Comment FASTING [facility] Insulin Reference Range: [facility] Comment on above: Fastin.6-24.9 30 min: 20-112 60 min: 29-88 90 min: 26-84 120 min: 22-79 Lipid Panelon 04-14-2025 Cholesterol [Mass/Vol] 158 mg/dL 0 - 199 mg/dL [facility] Comment on above: Cholesterol Guidelines: <200 Desirable 200-240 Borderline >240 Undesirable Cholesterol in HDL [Mass/Vol] 31 mg/dL Low 40 - PINF mg/dL [facility] Comment on above: HDL Guidelines: <40 Undesirable 40-59 Borderline >59 Desirable Cholesterol in LDL [Mass/Vol] 59 mg/dL 0 - 100 mg/dL [facility] Comment on above: LDL Guidelines: <100 Desirable 100-129 Near to/above Desirable 130-159 Borderline >159 Undesirable Direct (measured) LDL and calculated LDL are not interchangeable tests. Cholesterol in VLDL [Mass/Vol] 68 mg/dL High 1 - 30 mg/dL [facility] Cholesterol.total/Chol esterol in HDL [Mass ratio] 5.1 {ratio} High [facility] 5.0 [facility] Interpretation and review of laboratory results Abnormal [facility] Triglyceride [Mass/Vol] 341 mg/dL High NINF - 150 mg/dL [facility] Comment on above: Triglyceride Guidelines: <150 Desirable 150-199 Borderline 200-499 High >499 Very high Based on AHA Guidelines for fasting triglyceride, July 2012. Lipid Profileon 04-14-2025 Cholesterol [Mass/Vol] 158 mg/dL Normal 0-[address] [facility] Comment on above: Result Comment: Cholesterol Guidelines: <200 Desirable 200-240 Borderline >240 Undesirable Performed By: #### L IPR, GLYHGB ####[facility] [address] [place] [address] Lab Director: Placido Pierce MD#### CP ####[facility] [address] [place], [place] [address])[phone] Director: Emily George MD#### INSU ####[address] [address] Lab Director: Placido Pierce [facility] [address] [place], [place] [address])[phone] Director: Emily George MD Cholesterol in HDL [Mass/Vol] 31 mg/dL Low >40 [facility] Comment on above: Result Comment: HDL Guidelines: <40 Undesirable 40-59 Borderline >59 Desirable Performed By: #### L IPR, GLYHGB ####[facility] [address] [place] [address] Lab Director: Placido Pierce MD#### CP ####[facility] [address] [place], [place] [phone] Director: Emily George MD#### INSU ####[facility] [place] [address] Lab Director: Placido Pierce, [facility] [address] [place] [address] Lab Director: Emily George MD Cholesterol in LDL [Mass/Vol] 59 mg/dL Normal 0-100 [facility] Comment on above: Result Comment: LDL Guidelines: <100 Desirable 100-129 Near to/above Desirable 130-159 Borderline >159 Undesirable Direct (measured) LDL and calculated LDL are not interchangeable tests. Performed By: #### L IPR, GLYHGB ####[facility] [place] [address] Lab Director: Placido Pierce MD#### CP ####[facility] [address] [place] [address] Lab Director: Emily George MD#### INSU ####[facility] [place] [address] Lab Director: Placido Pierce, [facility] [address] [place], [place] [phone] Director: Emily George MD Cholesterol in VLDL [Mass/Vol] 68 mg/dL High 1-30 [facility] Comment on above: Performed By: #### L IPR, GLYHGB ####[facility] [address] [place] [address] Lab Director: Placido Pierce MD#### CP ####[facility] [address] [place] [address] Lab Director: Emily George MD#### INSU ####[facility] [address] [place] [address] Lab Director: Placido Pierce, [facility] [address] [facility] [place] [address] Lab Director: Emily George MD Cholesterol.total/Chol esterol in HDL [Mass ratio] 5.1 {ratio} High <5.0 [facility] Comment on above: Performed By: #### L IPR, GLYHGB ####[facility] [address] [place], [place] [phone] Director: Placido Pierce MD#### CP ####[facility] [address] [place] [address] Lab Director: Emily George MD#### INSU ####[facility] [place], [place] [phone] Director: Placido Pierce, [facility] [address] [place] [address] Lab Director: Emily George MD Triglyceride [Mass/Vol] 341 mg/dL High <150 [facility] Comment on above: Result Comment: Triglyceride Guidelines: <150 Desirable 150-199 Borderline 200-499 High >499 Very high Based on AHA Guidelines for fasting triglyceride, July 2012. Performed By: #### L IPR, GLYHGB ####[facility] [address] [place] [address] Lab Director: Placido Pierce MD#### CP ####[facility] [address] [place] [address] Lab Director: Emily George MD#### INSU ####[facility] [place] [address] Lab Director: Placido Pierce, [facility] [address] [place] [address] Lab Director: Emily George MD No Panel Informationon 04-14 [facility] MR Foot - right WO [...] superimposed infection be difficult to include. [facility] RIS CONSOLIDATED EXAM: MRI FOOT RIGHT [...] change likely related to chronic neuropathy. [facility] RIS Hesham Martins MD - 04/12/2025 [...] again superimposed infection be difficult to include. [facility] MR Foot - right WO and W con trast IVOrdered By: Hesham Mcarthur on 04-12-2025 [facility] Work Phone: MRI FOOT RIGHT [...] by: Hesham Mcarthur MD 04/12/25 Final result [facility] Radiology, Radiologist, MD - 04/12/2025 [...] by: Hesham Mcarthur MD 04/12/25 Final result [facility] MRI FOOT RIGHT W WO [...] Mcarthur MD 04/12/25 Final result Normal [facility] Radiology Study observation (narrative) [facility] MRI FOOT RIGHT W WO CONTRAST Ordered By: Radiologist Radiology on 04-12-2025 [facility] Work Phone: BUN & Creatinineon Creatinine [Mass/Vol] 1.3 mg/dL High 0.5 - 0.9 mg/dL [facility], Glom Filt Rate 52 Low - PINF [facility] Comment on above: These results are not [...] Interpretation and review of laboratory results Abnormal [facility] Urea nitrogen [Mass/Vol] 15 mg/dL 6 - 20 mg/dL [facility] BUN + Creatinineon 5 Creatinine [Mass/Vol] 1.3 mg/dL High 0.5-0.9 [place] Comment on above: Performed By: #### B UNCRT #### [facility] [address] [place] [address] Pan Operator: Emily George MD GFR/1.73 sq M.predicted among non-blacks MDRD (S/P/Bld) [Vol rate/Area] 52 mL/min/{1.73_m2} Low >60 [facility] Comment on above: Result Comment: These [...] secretion. Performed By: #### B UNCRT #### [facility] [address] [place] [address] Pan Operator: Emily George MD Urea nitrogen [Mass/Vol] 15 mg/dL Normal 6-20 [facility] Comment on above: Performed By: #### B UNCRT #### [facility] [address] [place] [address] Pan Operator: Emily George MD [facility] BUN + CREATININEon Creatinine [Mass/Vol] 1.3 mg/dL High 0.5 - 0.9 mg/dL [facility] Interpretation and review of laboratory results Abnormal [facility] EGFR 52 Low - PINF [facility] Comment on above: These results [...] [Mass/Vol] 15 mg/dL 6 - 20 mg/dL [facility] Original Ordering Provider: [facility] MR Foot - right WO and W con trast Chay 04-11-2025 Radiology Study observation (narrative) [facility] XR Foot - right 2 [facility] Result: XRAY RIGHT FOOT: AP/OBL- No fx. Lis franc diastasis concern with deformity. DP 2 mild cortical disruption 1-2mm possible. No bone density changes [facility] Cult,Woundon 04-08-2025 Cult,Wound Specimen Description [...] <=10 SUSCEPTIBLE Vancomycin 1 SUSCEPTIBLE Susceptible [facility] Comment on above: Performed By: #### W DC ####[facility] [address] [place] [address] Lab Director: Placido Pierce, [facility] [address] [place] [address] Lab Director: Emily George MD XR Foot - right 2 [facility] Study observation (narrative) [facility] Brain Natri. Peptideon 04-04 Natriuretic peptide B (Bld) [Mass/Vol] 262 pg/mL Normal <300 [facility] Comment on above: Result Comment: An a ge-independent cutoff point of 300 pg/ml has a 98% negative predictive value excluding acute heart failure. Performed By: #### B IMPORT/EXPORT ANALYST, SED, CRP #### [facility] [address] [place] [address] Pan Operator: Emily George MD Brain Natriuretic Peptideon 04-04-2025 Natriuretic peptide B (Bld) [Mass/Vol] 262 pg/mL NINF - 300 pg/mL [facility] Comment on above: An age-independent c utoff point of 300 pg/ml has a 98% negative predictive value excluding acute heart failure. C-Reactive Proteinon 025 CRP High sensitivity method [Mass/Vol] 46.7 mg/L High 0.0 - 5.0 mg/L [facility] Interpretation and review of laboratory results Abnormal [facility] CRP [Mass/Vol] 46.7 mg/L High 0.0-5.0 [facility] Comment on above: Performed By: #### B IMPORT/EXPORT ANALYST, SED, CRP #### [facility] [address] [place] [address] Pan Operator: Emily George MD CBC with Auto Differentialon 04-04-2025 Basophils (Bld) [#/Vol] 0.02 10*3/uL [facility] Basophils/100 WBC (Bld) 0 % 0 - 2 % [facility] Eosinophils (Bld) [#/Vol] 0.07 10*3/uL [facility] Eosinophils/100 WBC (Bld) 1 % 0 - 5 % [facility] Erythrocyte distribution width (RBC) [Ratio] 18.4 % High 12.1 - 15.2 % [facility] Hematocrit (Bld) [Volume fraction] 30 % Low 36.0 - 46.0 % [facility] Hemoglobin (Bld) [Mass/Vol] 9.6 g/dL Low 12.0 - 16.0 g/dL [facility] Immature granulocytes (Bld) [#/Vol] 0.13 10*3/uL [facility] Immature granulocytes/100 WBC (Bld) 2 % 0 - 5 % [facility] Interpretation and review of laboratory results Abnormal [facility] Lymphocytes/100 WBC (Bld) 23 % 15 - 40 % [facility] Lymphocytes/100 WBC (Bld) 1.39 % [facility] MCH (RBC) [Entitic mass] 27 pg 26.0 - 34.0 pg [facility] MCHC (RBC) [Mass/Vol] 32 g/dL 31.0 - 37.0 g/dL [facility] MCV (RBC) [Entitic vol] 84.3 fL 80.0 - 100.0 fL [facility] Monocytes/100 WBC (Bld) 6 % 4 - 8 % [facility] Monocytes/100 WBC (Bld) 0.37 % [facility] Neutrophils/100 WBC (Bld) 68 % 47 - 75 % [facility] Platelet mean volume (Bld) [Entitic vol] 11.7 fL 6.0 - 12.0 fL [facility] Platelets (Bld) [#/Vol] 186 10*3/uL [facility] RBC (Bld) [#/Vol] 3.56 10*6/uL Low 4.00 - 5.2 0 m/uL [facility] Segmented neutrophils/100 WBC (Bld) 4.09 % [facility] WBC other (Bld) [#/Vol] 6.1 [facility] CBC with Diffon 04-04-2025 Abs. Basophil 0.02 k/uL Normal 0.00-0.20 [facility] Comment on above: Performed By: #### C DP #### [facility] [address] [place] [address] Pan Operator: Emily George MD Abs.Imm.Granulocyte 0.13 k/uL Normal 0.00-0.30 [facility] Comment on above: Performed By: #### C DP #### [facility] [address] [place] [id number] Pan Operator: Emily George MD Abs.Neutrophil (Seg) 4.09 k/uL Normal 2.5-7.0 [facility] Comment on above: Performed By: #### C DP #### [facility] [address] [place] [id number] Pan Operator: Emily George MD Basophils/100 WBC (Bld) 0 % Normal 0-2 [facility] Comment on above: Performed By: #### C DP #### [facility] [address] [place] [address] Pan Operator: Emily George MD Eosinophils (Bld) [#/Vol] 0.07 10*3/uL Normal 0.00-0.40 [facility] Comment on above: Performed By: #### C DP #### [facility] [address] [place] [phone] Pan Operator: Emily George MD Eosinophils/100 WBC (Bld) 1 % Normal 0-5 [facility] Comment on above: Performed By: #### C DP #### [facility] [address] [place] [address] Pan Operator: Emily George MD Erythrocyte distribution width (RBC) [Ratio] 18.4 % High 12.1-15.2 [facility] Comment on above: Performed By: #### C DP #### [facility] [address] [place] [address] Pan Operator: Emily George MD Hematocrit (Bld) [Volume fraction] 30.0 % Low 36.0-46.0 [facility] Comment on above: Performed By: #### C DP #### [facility] [address] [place] [phone] Pan Operator: Emily George MD Hemoglobin (Bld) [Mass/Vol] 9.6 g/dL Low 12.0-16.0 [facility] Comment on above: Performed By: #### C DP #### [facility] [address] [place], [place] [phone] Pan Operator: Emily George MD Immature granulocytes/100 WBC (Bld) 2 % Normal 0-5 [facility] Comment on above: Performed By: #### C DP #### [facility] [address] [place] [phone] Pan Operator: Emily George MD Lymphocytes (Bld) [#/Vol] 1.39 10*3/uL Normal 1.00-4.80 [facility] Comment on above: Performed By: #### C DP #### [facility] [address] [place] [phone] Pan Operator: Emily George MD Lymphocytes/100 WBC (Bld) 23 % Normal 15-40 [facility] Comment on above: Performed By: #### C DP #### [facility] [address] [place] [address] Pan Operator: Emily George MD MCH (RBC) [Entitic mass] 27.0 pg Normal 26.0-34.0 [facility] Comment on above: Performed By: #### C DP #### [facility] [address] [place] [address] Pan Operator: Emily George MD MCHC (RBC) [Mass/Vol] 32.0 g/dL Normal 31.0-37.0 [place] Comment on above: Performed By: #### C DP #### [facility] [address] [place] [address] Pan Operator: Emily George MD MCV (RBC) [Entitic vol] 84.3 fL Normal 80.0-100.0 [facility] Comment on above: Performed By: #### C DP #### [facility] [address] [place] [address] Pan Operator: Emily George MD Monocytes (Bld) [#/Vol] 0.37 10*3/uL Normal 0.00-1.00 [facility] Comment on above: Performed By: #### C DP #### [facility] [address] [place] [address] Pan Operator: Emily George MD Monocytes/100 WBC (Bld) 6 % Normal 4-8 [facility] Comment on above: Performed By: #### C DP #### [facility] [address] [place] [address] Pan Operator: Emily George MD Neutrophil (Seg) 68 % Normal 47-75 [facility] Comment on above: Performed By: #### C DP #### [facility] [address] [place] [address] Pan Operator: Emily George MD Platelet mean volume (Bld) [Entitic vol] 11.7 fL Normal 6.0-12.0 [facility] Comment on above: Performed By: #### C DP #### [facility] [address] [place] [address] Pan Operator: Emily George MD Platelets (Bld) [#/Vol] 186 10*3/uL Normal 140-450 [facility] Comment on above: Performed By: #### C DP #### [facility] [address] [place] [address] Pan Operator: Emily George MD RBC (Bld) [#/Vol] 3.56 10*6/uL Low 4.00-5.20 [facility] Comment on above: Performed By: #### C DP #### [facility] [address] [place] [address] Pan Operator: Emily George MD WBC (Bld) [#/Vol] 6.1 10*3/uL Normal 3.5-11.0 [facility] Comment on above: Performed By: #### C DP #### [facility] [address] [place] [address] Pan Operator: Emily George MD No Panel Informationon 04-04 No acute osseous injury. Soft tissue swelling of the left great toe on the right second toe without radiographic evidence of osteomyelitis. Postsurgical changes partially imaged on the left. [facility] EXAM: XR TOE LEFT (MIN 2 [...] There is normal mineralization. [facility] Daksha Hannah MD - 04/04/2025 EXAM: [...] Postsurgical changes partially imaged on the left. [facility] No Panel InformationOrdered By: Daksha Hannah on 04-04-2025 [facility] Work Phone: Sedimentation Rateon 025 ESR Photometric method (Bld) [Velocity] 32 High [facility] Interpretation and review of laboratory results Abnormal [facility] Sedimentation Rate 32 mm/Hr High 0-20 [facility] Comment on above: Performed By: #### B IMPORT/EXPORT ANALYST, SED, CRP #### [facility] [address] [place] [address] Pan Operator: Emily George MD XR TOE LEFT (MIN [...] Hannah MD 04/04/25 Final result Normal [facility] XR TOE RIGHT (MIN 2 [...] Hannah MD 04/04/25 Final result Normal [facility] XR Toes - left 2 [facility] Radiology Study observation (narrative) [facility] XR Toes - right 2 Viewson Radiology Study observation (narrative) [facility] BRIAN DIGITAL SCREEN BILA TERALon 02-28-2025 NITA [...] be mailed to the patient. Performing Facility: [facility] [address] [address] Interpreted by: Micky Lauren Jr., MD Signed by: Micky Lauren Jr., MD 02/28/25 Final result Normal [facility] Comp Metabolic Profon 2024 Albumin [Mass/Vol] 3.8 g/dL Normal 3.5-5.2 [facility] Comment on above: Performed By: #### G LYHGB, LIPR, LDLDIR ####[facility] [address] [place] [address] Lab Director: Placido Pierce MD#### CP ####[facility] [address] [place], [place] [phone] Lab Director: Emily George MD Alkaline Phos 115 U/L High 35-104 [facility] Comment on above: Performed By: #### G LYHGB, LIPR, LDLDIR ####[facility] [place] [address] Lab Director: Placido Piecre MD#### CP ####[facility] W[address] [place] [address] Lab Director: Emily George MD ALT [Catalytic activity/Vol] 11 U/L Normal 5-33 [facility] Comment on above: Performed By: #### G LYHGB, LIPR, LDLDIR ####[address] [place] [address] Lab Director: Placido Pierce MD#### CP ####[facility] [address] [place], [place] [phone] Lab Director: Emily George MD Anion gap [Moles/Vol] 12 mmol/L Normal 9-17 [place] Comment on above: Performed By: #### G LYHGB, LIPR, LDLDIR ####[address] [place] [address] Lab Director: Placido Pierce MD#### CP ####[facility] [address] [place] [address] Lab Director: Emily George MD AST [Catalytic activity/Vol] 14 U/L Normal <32 [facility] Comment on above: Performed By: #### G LYHGB, LIPR, LDLDIR ####[facility] [place] [address] Lab Director: Placido Pierce MD#### CP ####[facility] [address] [place] [address] Lab Director: Emily George MD Bilirubin [Mass/Vol] 0.4 mg/dL Normal 0.3-1.2 [facility] Comment on above: Performed By: #### G LYHGB, LIPR, LDLDIR ####[address] [place] [address] Lab Director: Placido Pierce MD#### CP ####[facility] [address] [place] [address] Lab Director: Emily George MD BUN/CRE Ratio 19 Normal 9-20 [facility] Comment on above: Performed By: #### G LYHGB, LIPR, LDLDIR ####[address] [place] [address] Lab Director: Placido Pierce MD#### CP ####[facility] [address] [place], [place] [address])[phone] Director: Emily George MD Calcium [Mass/Vol] 9.3 mg/dL Normal 8.6-10.4 [facility] Comment on above: Performed By: #### G LYHGB, LIPR, LDLDIR ####[address] [address] Lab Director: Placido Pierce MD#### CP ####[facility] [address]xs[address] [place] [address] Lab Director: Emily George MD Chloride [Moles/Vol] 102 mmol/L Normal 98-107 [facility] Comment on above: Performed By: #### G LYHGB, LIPR, LDLDIR ####[address] [place] [address] Lab Director: Placido Pierce MD#### CP ####[facility] [address] [place] [address] Lab Director: Emily George MD CO2 [Moles/Vol] 25 mmol/L Normal 20-31 [facility] Comment on above: Performed By: #### G LYHGB, LIPR, LDLDIR ####[facility] [place] [address] Lab Director: Placido Pierce MD#### CP ####[facility] [address] [place] [address] Lab Director: Emily George MD Creatinine [Mass/Vol] 1.1 mg/dL High 0.5-0.9 [place] Comment on above: Performed By: #### G LYHGB, LIPR, LDLDIR ####[address] [place] [address] Lab Director: Placido Pierce MD#### CP ####[facility] [address] [place], [place] [phone] lab Director: Emily George MD GFR/1.73 sq M.predicted among non-blacks MDRD (S/P/Bld) [Vol rate/Area] 63 mL/min/{1.73_m2} Normal >60 [facility] Comment on above: Result Comment: These [...] By: #### G LYHGB, LIPR, LDLDIR ####[facility] [place] [address] Lab Director: Placido Pierce MD#### CP ####[facility] [address] [place] [address] Lab Director: Emily George MD Glucose [Mass/Vol] 125 mg/dL High 70-99 [facility] Comment on above: Performed By: #### G LYHGB, LIPR, LDLDIR ####[address] [place] [address] Lab Director: Placido Pierce MD#### CP ####[facility] [address] [place] [address] Lab Director: Emily George MD Potassium [Moles/Vol] 4.2 mmol/L Normal 3.7-5.3 [place] Comment on above: Performed By: #### G LYHGB, LIPR, LDLDIR ####[address] [address] Lab Director: Placido Pierce MD#### CP ####[facility] [address] [place], [place] [address])[phone] Director: Emily George MD Protein [Mass/Vol] 7.2 g/dL Normal 6.4-8.3 [facility] Comment on above: Performed By: #### G LYHGB, LIPR, LDLDIR ####[address] [address] Lab Director: Placido Pierce MD#### CP ####[facility] [address] [place] [address] Lab Director: Emily Geroge MD Sodium [Moles/Vol] 139 mmol/L Normal 135-144 [facility] Comment on above: Performed By: #### G LYHGB, LIPR, LDLDIR ####[address] [address] Lab Director: Placido Pierce MD#### CP ####[facility] [address] [place] [address] Lab Director: Emily George MD Urea nitrogen [Mass/Vol] 21 mg/dL High 6-20 [facility] Comment on above: Performed By: #### G LYHGB, LIPR, LDLDIR ####[facility] [address] [place], [place] [id number] Lab Director: Placido Pierce MD#### CP ####[facility] [address] [place] [place], [place] 2[address] lab Director: Emily George MD Comprehensive Metabolic Pane [facility] 11-14-2024 Albumin [Mass/Vol] 3.8 g/dL 3.5 - 5.2 g/dL [facility] ALP [Catalytic activity/Vol] 115 U/L High 35 - 104 U/L [facility] ALT [Catalytic activity/Vol] 11 U/L 5 - 33 U/L [facility] Anion gap [Moles/Vol] 12 mmol/L 9 - 17 mmol/L [facility] AST [Catalytic activity/Vol] 14 U/L NINF - 32 U/L [facility] Bilirubin [Mass/Vol] 0.4 mg/dL 0.3 - 1 .2 mg/dL [facility] Calcium [Mass/Vol] 9.3 mg/dL 8.6 - 10. 4 mg/dL [facility] Chloride [Moles/Vol] 102 mmol/L 98 - 10 7 mmol/L [facility] CO2 [Moles/Vol] 25 mmol/L 20 - 31 mmol/L [facility] Creatinine [Mass/Vol] 1.1 mg/dL High 0.5 - 0.9 mg/dL [facility] Est, Glom Filt Rate 63 - PINF [facility] Comment on above: These results are not [...] 125 mg/dL High 70 - 99 mg/dL [facility] Interpretation and review of laboratory results Abnormal [facility] Potassium [Moles/Vol] 4.2 mmol/L 3.7 - 5.3 mmol/L [facility] Protein [Mass/Vol] 7.2 g/dL 6.4 - 8.3 g/dL [facility] Sodium [Moles/Vol] 139 mmol/L 135 - 144 mmol/L [facility] Urea nitrogen [Mass/Vol] 21 mg/dL High 6 - 20 mg/dL [facility] Urea nitrogen/Creatinine [Mass ratio] 19 mg/mg 9 - 20 [facility] Hemoglobin A1Con 11-14-2024 Average glucose Estimated from glycated hemoglobin (Bld) [Mass/Vol] 103 mg/dL [facility] Comment on above: The ADA and AACC rec ommend providing the estimated average glucose result to permit better patient understanding of their HBA1c result. HbA1c (Bld) [Mass fraction] 5.2 % 4.0 - 6.0 % [facility] Glucose [Mass/Vol] 103 mg/dL Normal [facility] Comment on above: Result Comment: The ADA and AACC recommend providing the estimated average glucose result to permit better patient understanding of their HBA1c result. Performed By: #### G LYHGB, LIPR, LDLDIR ####[facility] [address] [place] [phone] Lab Director: Placido Pierce MD#### CP ####[facility] [address] [facility] [place] [address] lab Director: Emily George MD HbA1c (Bld) [Mass fraction] 5.2 % Normal 4.0-6.0 [facility] Comment on above: Performed By: #### G LYHGB, LIPR, LDLDIR ####[facility] [address] [place], [place] [id number] Lab Director: Placido Pierce MD#### CP ####[facility] [address] [place] [address] lab Director: Emily George MD LDL Chol, Directon LDL Chol, Direct 94 mg/dL Normal <100 [facility] Comment on above: Performed By: #### G LYHGB, LIPR, LDLDIR ####[facility] [address] [place], [place] [id number] lab Director: Placido Pierce MD#### CP ####[facility] [address]238 [place] [address] lab Director: Emily George MD LDL Cholesterol, Directon Cholesterol in LDL [Mass/Vol] 94 mg/dL NINF - 100 mg/dL [facility] Lipid Panelon 11-14-2024 Cholesterol [Mass/Vol] 179 mg/dL 0 - 199 mg/dL [facility] Comment on above: Cholesterol Guidelines: <200 Desirable 200-240 Borderline >240 Undesirable Cholesterol in HDL [Mass/Vol] 31 mg/dL Low 40 - PINF mg/dL [facility] Comment on above: HDL Guidelines: <40 Undesirable 40-59 Borderline >59 Desirable Cholesterol in LDL [Mass/Vol] Can not be calculated 0 - 100 mg/dL [facility] Comment on above: LDL Guidelines: <100 Desirable 100-129 Near to/above Desirable 130-159 Borderline >159 Undesirable Direct (measured) LDL and calculated LDL are not interchangeable tests. Cholesterol in VLDL [Mass/Vol] Can not be calculated 1 - 30 mg/dL [facility] Cholesterol.total/Chol esterol in HDL [Mass ratio] 5.8 {ratio} [facility] Interpretation and review of laboratory results Abnormal [facility] Triglyceride [Mass/Vol] 407 mg/dL High NINF - 150 mg/dL [facility] Comment on above: Triglyceride Guidelines: <150 Desirable 150-199 Borderline 200-499 High >499 Very high Based on AHA Guidelines for fasting triglyceride, July 2012. [facility] [employer] Lipid Profileon 11-14-2024 Cholesterol [Mass/Vol] 179 mg/dL Normal 0-199 [facility] Comment on above: Result Comment: Cholesterol Guidelines: <200 Desirable 200-240 Borderline >240 Undesirable Performed By: #### G LYHGB, LIPR, LDLDIR ####[facility] [place], [place] [phone] Director: Placido Pierce MD#### CP ####[facility] [address] [place], [place] [phone] Director: Emily George MD Cholesterol in HDL [Mass/Vol] 31 mg/dL Low >40 [facility] Comment on above: Result Comment: HDL Guidelines: <40 Undesirable 40-59 Borderline >59 Desirable Performed By: #### G LYHGB, LIPR, LDLDIR ####[address] [place], [place] [phone] Director: Placdio Pierce MD#### CP ####[facility] [address] [place], [place] [phone] Director: Emily George MD Cholesterol,LDL Can not be calculated Normal 0-100 [facility] Comment on above: Result Comment: LDL Guidelines: <100 Desirable 100-129 Near to/above Desirable 130-159 Borderline >159 Undesirable Direct (measured) LDL and calculated LDL are not interchangeable tests. Performed By: #### G LYHGB, LIPR, LDLDIR ####[address] [place], [place] [phone] Director: Placido Pierce MD#### CP ####[facility] [address] [place], [place] [phone] Director: Emily George MD Cholesterol,VLDL Can not be calculated Normal 1-30 [facility] Comment on above: Performed By: #### G LYHGB, LIPR, LDLDIR ####[facility] [place], [place] [phone] Director: Placido Pierce MD#### CP ####[facility] [address] [place] [address] Lab Director: Emily George MD Cholesterol.total/Chol esterol in HDL [Mass ratio] 5.8 {ratio} Normal [facility] Comment on above: Performed By: #### G LYHGB, LIPR, LDLDIR ####[facility] [address] [place] [address] Lab Director: Placido Pierce MD#### CP ####[facility] [address] [place] [address] Lab Director: Emily George MD Triglyceride [Mass/Vol] 407 mg/dL High <150 [facility] Comment on above: Result Comment: Triglyceride Guidelines: <150 Desirable 150-199 Borderline 200-499 High >499 Very high Based on AHA Guidelines for fasting triglyceride, July 2012. Performed By: #### G LYHGB, LIPR, LDLDIR ####[facility] [address] [place] [address] Lab Director: Placido Pierce MD#### CP ####[facility] [address] [place] [address] Lab Director: Emily George MD US THYROIDon [...] Continued follow-up annually is recommended through 2026. [facility] US Thyroid glandOrdered By: Micky Lauren on 09-07-2024 [facility] Work Phone: US Thyroid glandon Radiology Study observation (narrative) [facility] Magnesiumon 05-10-2024 Magnesium [Mass/Vol] 2.2 mg/dL 1.6 - 2 .6 mg/dL [facility] [employer] [facility] No Panel Informationon 05-10 [facility] [employer] Protein / creatinine ratio, urineon 05-10-2024 Creatinine (U) [Mass/Vol] 132.0 mg/dL 28.0 - 217.0 mg/dL [facility] [employer] Protein (U) [Mass/Vol] 9 mg/dL [facility] Comment on above: No normal range esta blished. Urine Total Protein Creatinine Ratio 0.07 [facility] [employer] [facility] Renal Function Panelon 05-10 Albumin [Mass/Vol] 4.2 g/dL 3.5 - 5.2 g/dL [facility] Anion gap [Moles/Vol] 15 mmol/L 9 - 17 mmol/L [facility] [employer] Calcium [Mass/Vol] 9.2 mg/dL 8.6 - 10. 4 mg/dL [facility] Chloride [Moles/Vol] 101 mmol/L 98 - 10 7 mmol/L [facility] CO2 [Moles/Vol] 25 mmol/L 20 - 31 mmol/L [facility] Creatinine [Mass/Vol] 1.3 mg/dL High 0.5 - 0.9 mg/dL [facility] [employer] Est, Glom Filt Rate 52 Low - PINF [facility] Comment on above: These results are not [...] 141 mg/dL High 70 - 99 mg/dL [facility] Interpretation and review of laboratory results Abnormal [facility] Phosphate [Mass/Vol] 3.8 mg/dL 2.6 - 4 .5 mg/dL [facility] Potassium [Moles/Vol] 4.0 mmol/L 3.7 - 5.3 mmol/L [facility] Sodium [Moles/Vol] 141 mmol/L 135 - 144 mmol/L [facility] Urea nitrogen [Mass/Vol] 19 mg/dL 6 - 20 mg/dL [facility] Urea nitrogen/Creatinine [Mass ratio] 15 mg/mg 9 - 20 [facility] Urinalysison 05-10-2024 Bilirubin Ql (U) Negative NEGATIVE [facility] Clarity (U) Clear Clear [facility] Color (U) Yellow Yellow [facility] Comment [facility] Glucose Test strip (U) [Mass/Vol] Negative NEGATIVE mg/dL [facility] Hemoglobin Auto test strip Ql (U) Negative NEGATIVE [facility] Interpretation and review of laboratory results Abnormal [facility] Ketones (U) [Mass/Vol] Negative NEGAT BEATRIZ mg/dL [facility] Leukocyte esterase Test strip Ql (U) Negative NEGATIVE [facility] Nitrite Ql (U) Negative NEGATIVE [facility] pH (U) 5.0 [pH] 5.0 - 8.0 [facility] Protein (U) [Mass/Vol] TRACE Abnormal NEGAT BEATRIZ mg/dL [facility] Specific gravity (U) [Rel density] 1.020 1.005 - 1.030 [facility] Urobilinogen Qn (U) Normal 0.0 - 1. 0 EU/dL [facility] Ananda 02-15-2024 L Specimen: [id number] Received: 02/16/24 Status: SOUT Req Num: [id number] Spec Type: Surgical Subm Dr: Frances Harirs DPM, MS Tissues: A Soft Tissue/Surgical Margin-Other than Tumor,Mass,Lip or Becka (LT MID FOOT CH Procedures: HE/2, Gross/Micro L4 Age/ Patient Sex Location Account Attending Physician Celina Gaspar 43/F LABELL [id number] Frances Harris DPM, MS SPEC NUM: [id number] RECD: 02/16/24 STATUS: ARLEN SO NUM: [id number] MAYTE: 02/15/[address]: Frances Harris DPM, MS ENTERED: 02/16/24 [facility] DR: Darwin Vergara SPEC TYPE: Surgical DEPT: [...] sections reveal firm, yellow spongy bone matrix. 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 Clinical history: varus deformity left ankle, charcot join left ankle and foot. CPT Codes 67447 Specimen: [id number] Received: 02/16/24 Status: ARLEN Zuletapaola Num: [id number] Spec Type: Surgical Subm Dr: Frances Harris,INDER, MS Tissues: A Soft Tissue/Surgical Margin-Other than Tumor,Mass,Lip or Becka (LT MID FOOT CH Procedures: HE/2, Gross/Micro L4 Patient: Celina Gaspar [id number] (Continued) Signed (signature on file) Juan José Yu MD 02/17/24 1549 Normal [facility] Lipid Panelon 06-15-2023 Cholesterol [Mass/Vol] 174 mg/dL NINF - 200 mg/dL [place] Comment on above: Cholesterol Guidelines: <200 Desirable 200-240 Borderline >240 Undesirable Cholesterol in HDL [Mass/Vol] 30 mg/dL Low 40 - PINF mg/dL [facility] Comment on above: HDL Guidelines: <40 Undesirable 40-59 Borderline >59 Desirable Cholesterol in LDL [Mass/Vol] 77 mg/dL 0 - 130 mg/dL [facility] Comment on above: LDL Guidelines: <100 Desirable 100-129 Near to/above Desirable 130-159 Borderline >159 Undesirable Direct (measured) LDL and calculated LDL are not interchangeable tests. Cholesterol.total/Chol esterol in HDL [Mass ratio] 5.8 {ratio} High NINF - 5 [facility] Interpretation and review of laboratory results Abnormal [facility] Triglyceride [Mass/Vol] 334 mg/dL High NINF - 150 mg/dL [facility] Comment on above: Triglyceride Guidelines: <150 Desirable 150-199 Borderline 200-499 High >499 Very high Based on AHA Guidelines for fasting triglyceride, July 2012. [facility] BUN & Creatinineon Creatinine [Mass/Vol] 1.08 mg/dL High 0.50 - 0.90 mg/dL [facility] GFR/1.73 sq M.predicted MDRD (S/P/Bld) [Vol rate/Area] - PINF [facility] Comment on above: These results are [...] 21 mg/dL High 6 - 20 mg/dL [facility] CBC with Auto Differentialon 02-05-2023 Absolute Eos # 0.10 [facility] Absolute Lymph # 1.70 [facility] Absolute Apache # 0.50 [facility] RS [facility] Basophils (Bld) [#/Vol] 0.00 10*3/uL [facility] Basophils/100 WBC (Bld) 1 % 0 - 2 % [facility] Differential Type YES [facility] Eosinophils/100 WBC (Bld) 1 % 0 - 5 % [facility] Hematocrit (Bld) [Volume fraction] 36.2 % 36 - 46 % [facility] Hemoglobin (Bld) [Mass/Vol] 12.2 g/dL 12.0 - 16.0 g/dL [facility] Interpretation and review of laboratory results Abnormal [facility] Lymphocytes/100 WBC (Bld) 23 % 15 - 40 % [facility] MCH (RBC) [Entitic mass] 28.7 pg 26 - 34 pg [facility] MCHC (RBC) [Mass/Vol] 33.7 g/dL 31 - 37 g/dL B ON [facility] MCV (RBC) [Entitic vol] 85.3 fL 80 - 100 fL [facility] Monocytes/100 WBC (Bld) 7 % 4 - 8 % [facility] Platelet distribution width (Bld) [Ratio] 18.1 % High 12.1 - 15.2 % [facility] Platelets (Bld) [#/Vol] 150 10*3/uL [facility] RBC (Bld) [#/Vol] 4.25 10*6/uL 4.0 - 5.2 m/uL [facility] Segmented neutrophils/100 WBC (Bld) 68 % 47 - 75 % [facility] Segs Absolute 5.30 [facility] WBC (Bld) [#/Vol] 7.6 10*3/uL [facility] Chlorideon 02-05-2023 Chloride [Moles/Vol] 99 mmol/L 98 - 10 7 mmol/L [facility] Glucose, Randomon 02-05-2023 Glucose [Mass/Vol] 107 mg/dL High 70 - 99 mg/dL [facility] No Panel Informationon 02-05 Interpretation and review of laboratory results Abnormal [facility] Potassiumon 02-05-2023 Potassium [Moles/Vol] 4.6 mmol/L 3.7 - 5.3 mmol/L [facility] Sodiumon 02-05-2023 Sodium [Moles/Vol] 134 mmol/L Low 135 - 144 mmol/L [facility] Wet Prep, Genitalon 02-06-20 Interpretation and review of laboratory results Abnormal [facility] Microorganism or agent identified Nom (Unsp spec) FEW WBC Abnormal [facility] Microorganism or agent identified Nom (Unsp spec) MODERATE EPITHELIAL CELLS Abnormal [facility] Microorganism or agent identified Nom (Unsp spec) MODERATE BACTERIA Abnormal [facility] Microorganism or agent identified Nom (Unsp spec) NO TRICHOMONAS SEEN [facility] Microorganism or agent identified Nom (Unsp spec) NO FUNGAL ELEMENTS SEEN [facility] Microorganism or agent identified Nom (Unsp spec) NO CLUECELL SEEN [facility] Specimen Description .VAGINA [facility] CT FOOT LT WO CONon 02-05-20 [...] by: EMILY ELY Date: 2023-02-04 20:14 Normal [facility] XR ANKLE LEFT 3+ VIEWS [...] on ThuJan 06, 2023 6:11:26 PM EDT [facility] Comment on above: Order Comment: Injur [...] fragmentation of the navicular and cuneiform bones. [facility] Phone: Radiology Study observation (narrative) [facility] Phone: MRI FOOT LEFT W WO CONTRASTO rdered By: Mike Villavicnecio on 06-25-2022 [facility] Phone: XR FOOT LEFT (2 VIEWS)on There [...] consistent with the patient's history of neuropathy. [facility] Phone: Radiology Study observation (narrative) [facility] Phone: XR FOOT LEFT (2 VIEWS)Ordere d By: Mike Villavicencio on 06-25-2022 [facility] Phone: US HEAD NECK SOFT TISSUE THY [...] It does not meet criteria for FNA. [facility] [employer] Work Phone: Radiology Study observation (narrative) [facility] [employer] Work Phone: US HEAD NECK SOFT TISSUE THY ROIDOrdered By: Micky Lauren on 05-27-2022 [facility] [employer] Work Phone: Rejection Notificationon Reason see below [facility] Comment on above: Result Comment: Unab le to perform testing; no specimen received. To perform testing the specimen will need to be recollected. No spec Performed By: #### R EJEC #### [facility] [address] [facility] [address] Rejected Test CXURN [facility] Comment on above: Performed By: #### R EJEC #### [facility] [address] [facility] [address] LDL Cholesterol, Directon Cholesterol in LDL [Mass/Vol] 84 mg/dL <100 [facility] CBC with Auto Differentialon 04-12-2022 Absolute Eos # 0.10 [facility] Absolute Lymph # 1.40 [facility] [facility] [employer] [place] # 0.30 [facility] [employer] Basophils (Bld) [#/Vol] 0.00 10*3/uL [facility] Basophils/100 WBC (Bld) 1 % 0 - 2 % [facility] Differential Type YES [facility] Eosinophils/100 WBC (Bld) 1 % 0 - 5 % [facility] Hematocrit (Bld) [Volume fraction] 35.7 % Low 36 - 46 % [facility] Hemoglobin (Bld) [Mass/Vol] 12.0 g/dL 12.0 - 16.0 g/dL [facility] Interpretation and review of laboratory results Abnormal [facility] Lymphocytes/100 WBC (Bld) 25 % 15 - 40 % [facility] MCH (RBC) [Entitic mass] 28.0 pg 26 - 34 pg [facility] MCHC (RBC) [Mass/Vol] 33.7 g/dL 31 - 37 g/dL B ON [facility] MCV (RBC) [Entitic vol] 83.3 fL 80 - 100 fL [facility] Monocytes/100 WBC (Bld) 5 % 4 - 8 % [facility] Platelet distribution width (Bld) [Ratio] 16.4 % High 12.1 - 15.2 % [facility] Platelets (Bld) [#/Vol] 168 10*3/uL [facility] RBC (Bld) [#/Vol] 4.29 10*6/uL 4.0 - 5.2 m/uL [facility] Segmented neutrophils/100 WBC (Bld) 68 % 47 - 75 % [facility] Segs Absolute 3.90 [facility] WBC (Bld) [#/Vol] 5.7 10*3/uL [facility] Comprehensive Metabolic Pane ananda 04-12-2022 Albumin [Mass/Vol] 4.2 g/dL 3.5 - 5.2 g/dL [facility] ALP (Bld) [Catalytic activity/Vol] 88 U/L 35 - 104 U/L [facility] ALT [Catalytic activity/Vol] 29 U/L 5 - 33 U/L [facility] Anion gap [Moles/Vol] 11 mmol/L 9 - 17 mmol/L [facility] AST [Catalytic activity/Vol] 27 U/L <32 [facility] Bilirubin [Mass/Vol] 0.65 mg/dL 0.30 - 1.20 mg/dL [facility] Calcium [Mass/Vol] 9.1 mg/dL 8.6 - 10. 4 mg/dL [facility] Chloride [Moles/Vol] 101 mmol/L 98 - 10 7 mmol/L [facility] CO2 [Moles/Vol] 28 mmol/L 20 - 31 mmol/L [facility] Creatinine [Mass/Vol] 1.04 mg/dL High 0.50 - 0.90 mg/dL [facility] Free PSA/Total PSA [Mass fraction] 6.8 g/dL 6.4 - 8.3 g/dL [facility] [employer] GFR >60 >60 mL/min [facility] GFR Non- 58 mL/min Low >60 [facility] GFR/1.73 sq M.predicted MDRD (S/P/Bld) [Vol rate/Area] [facility] Comment on above: Average GFR for 40-4 9 years old: 99 mL/min/1.73sq m Chronic Kidney Disease: <60 mL/min/1.73sq m Kidney failure: <15 mL/min/1.73sq m eGFR calculated using average adult body mass. Additional eGFR calculator available at: http://www.Mimiboard/multiple_crcl_2012.htm Glucose [Mass/Vol] 103 mg/dL High 70 - 99 mg/dL [facility] [employer] [facility] Interpretation and review of laboratory results Abnormal [facility] Potassium [Moles/Vol] 3.9 mmol/L 3.7 - 5.3 mmol/L [facility] Sodium [Moles/Vol] 140 mmol/L 135 - 144 mmol/L [facility] Urea nitrogen (BldV) [Mass/Vol] 13 mg/dL 6 - 20 mg/dL [facility] [employer] Urea nitrogen/Creatinine (Bld) [Mass ratio] 13 [facility] [employer] [facility] HIV Screenon 04-12-2022 HIV Ag/Ab Non-Reactive NONREACTIVE [facility] Comment on above: No laboratory eviden ce of HIV infection. If acute HIV infection is suspected, consider testing for HIV-1 RNA. [facility] [employer] [facility] Lipid Panelon 04-12-2022 Cholesterol [Mass/Vol] 184 mg/dL <200 [facility] [employer] Comment on above: Cholesterol Guidelines: <200 Desirable 200-240 Borderline >240 Undesirable Cholesterol in HDL [Mass/Vol] 30 mg/dL Low >40 [facility] [employer] Comment on above: HDL Guidelines: <40 Undesirable 40-59 Borderline >59 Desirable Cholesterol.total/Chol esterol in HDL [Mass ratio] 6.1 {ratio} High <5 [facility] [employer] Interpretation and review of laboratory results Abnormal [facility] LDL Cholesterol 0 - 130 mg/dL [facility] Comment on above: Calculation not jacqueline d for Triglyceride value greater than 400 mg/dL. Direct LDL reflexed LDL Guidelines: <100 Desirable 100-129 Near to/above Desirable 130-159 Borderline >159 Undesirable Direct (measured) LDL and calculated LDL are not interchangeable tests. Triglyceride [Mass/Vol] 460 mg/dL High <150 [place] Comment on above: Triglyceride Guidelines: <150 Desirable 150-199 Borderline 200-499 High >499 Very high Based on AHA Guidelines for fasting triglyceride, July 2012. [place] No Panel Informationon 04-12 [facility] TSH with Reflexon 04-12-2022 TSH Qn 0.99 m[IU]/L [facility] Urinalysis with MicroscopicO rdered By: Lita Weeks on 08-01-2021 - [employer] Work Phone: Amorphous, UA NOT REPORTED None [facility] Work Phone: Bacteria, UA RARE Abnormal None [employer] Work Phone: Bilirubin Urine Negative NEGATIVE [facility] Work Phone: Casts UA NOT REPORTED /LPF [employer] Work Phone: Color, UA Yellow Yellow [employer] Work Phone: Crystals, UA NOT REPORTED None /HPF [employer] Work Phone: Epithelial Cells UA 2 TO 5 /HPF [employer] Work Phone: Glucose, Ur Negative NEGATIVE [employer] Work Phone: Interpretation and review of laboratory results Abnormal [employer] Work Phone: Ketones Ql (U) Negative NEGATIVE [employer] Work Phone: Leukocyte esterase Test strip Ql (U) Negative NEGATIVE [employer] Work Phone: Mucus, UA NOT REPORTED None [employer] Work Phone: Nitrite, Urine Negative NEGATIVE [employer] Work Phone: Other Observations UA NOT REPORTED NOT REQ. [facility] Work Phone: pH, UA 6.0 [facility] Work Phone: Protein, UA Negative NEGATIVE [facility] Work Phone: RBC, UA NOT REPORTED [facility] Work Phone: Renal Epithelial, UA NOT REPORTED 0 /HPF [facility] [employer] Work Phone: Specific [place], UA 1.020 [facility] [employer] Work Phone: Trichomonas, UA NOT REPORTED None [facility] Work Phone: Turbidity UA Clear Clear [facility] Work Phone: Urinalysis Comments [employer] Work Phone: Urine Hgb Negative NEGATIVE [facility] Work Phone: Urobilinogen, Urine Normal Normal [facility] Work Phone: WBC, UA NOT REPORTED 0 /HPF [facility] Work Phone: Yeast, UA NOT REPORTED None [facility] Work Phone: [facility] Work Phone: Urinalysis with MicroscopicO rdered By: Lita Weeks on 07-11-2021 - [employer] Phone: Amorphous, UA NOT REPORTED None [facility] Work Phone: Bacteria, UA 3+ Abnormal None [facility] Work Phone: Bilirubin Urine Negative NEGATIVE [facility] Work Phone: Casts UA NOT REPORTED /LPF [facility] Work Phone: Color, UA Yellow Yellow [facility] Work Phone: Crystals, UA NOT REPORTED None /HPF [employer] [facility] Work Phone: Epithelial Cells UA 2 TO 5 /HPF [facility] Work Phone: Glucose, Ur Negative NEGATIVE [facility] Work Phone: Interpretation and review of laboratory results Abnormal [facility] Work Phone: Ketones Ql (U) Negative NEGATIVE [facility] Work Phone: Leukocyte esterase Test strip Ql (U) 2+ Abnormal NEGATIVE [facility] Work Phone: Mucus, UA NOT REPORTED None [facility] Work Phone: Nitrite, Urine Positive Abnormal NEGATIVE [employer] Work Phone: Other Observations UA NOT REPORTED NOT REQ. [facility] Work Phone: pH, UA 6.0 [facility] Work Phone: Protein, UA Negative NEGATIVE [facility] Work Phone: RBC, UA NOT REPORTED [facility] Work Phone: Renal Epithelial, UA NOT REPORTED 0 /HPF [facility] [employer] Work Phone: Specific [place], UA 1.025 [employer] Work Phone: Trichomonas, UA NOT REPORTED None [facility] [employer] Work Phone: Turbidity UA Hazy Abnormal Clear [facility] Work Phone: Urinalysis Comments [employer] Work Phone: Urine Hgb Negative NEGATIVE [facility] Work Phone: Urobilinogen, Urine Normal Normal [facility] Work Phone: WBC, UA 20 TO 50 0 /HPF [facility] Work Phone: Yeast, UA NOT REPORTED None [facility] Work Phone: [facility] Work Phone: AlbuminOrdered By: Gregory stevens on 05-20-2021 Albumin [Mass/Vol] 4.2 g/dL 3.5 - 5.2 g/dL [employer] Phone: BUN & CreatinineOrdered By: Gregory Forbes on 05-20-2021 Creatinine [Mass/Vol] 1.18 mg/dL High 0.50 - 0.90 mg/dL [employer] Phone: GFR >60 >60 mL/min [employer] Phone: GFR Non- 50 mL/min Low >60 [employer] Phone: GFR/1.73 sq M.predicted MDRD (S/P/Bld) [Vol rate/Area] [employer] Phone: Comment on above: Average GFR for 40-4 9 years old: 99 mL/min/1.73sq m Chronic Kidney Disease: <60 mL/min/1.73sq m Kidney failure: <15 mL/min/1.73sq m eGFR calculated using average adult body mass. Additional eGFR calculator available at: http://www.Mimiboard/multiple_crcl_2012.htm GFR/1.73 sq M.predicted MDRD (S/P/Bld) [Vol rate/Area] NOT REPORTED [employer] Phone: Interpretation and review of laboratory results Abnormal [employer] Phone: Urea nitrogen (BldV) [Mass/Vol] 19 mg/dL 6 - 20 mg/dL [employer] Phone: CalciumOrdered By: Gregory stevens on 05-20-2021 Calcium [Mass/Vol] 9.2 mg/dL 8.6 - 10. 4 mg/dL [employer] Phone: Electrolyte PanelOrdered By: Gregory Forbes on 05-20-2021 Anion gap [Moles/Vol] 10 mmol/L 9 - 17 mmol/L [employer] Phone: Chloride [Moles/Vol] 103 mmol/L 98 - 10 7 mmol/L [employer] Phone: CO2 [Moles/Vol] 25 mmol/L 20 - 31 mmol/L [facility] Work Phone: Potassium [Moles/Vol] 4.2 mmol/L 3.7 - 5.3 mmol/L [facility] Work Phone: Sodium [Moles/Vol] 138 mmol/L 135 - 144 mmol/L [facility] Work Phone: MagnesiumOrdered By: Gregory high on 05-20-2021 Magnesium [Mass/Vol] 2.2 mg/dL 1.6 - 2 .6 mg/dL [facility] Phone: No Panel InformationOrdered By: Gregory Forbes on 05-20-2021 [facility] Work Phone: PhosphorusOrdered By: Gregory Forbes on 05-20-2021 Phosphate [Mass/Vol] 3.7 mg/dL 2.6 - 4 .5 mg/dL [facility] Work Phone: UrinalysisOrdered By: Gregory Forbes on 05-20-2021 Bilirubin Urine Negative NEGATIVE [employer] [facility] Work Phone: Color, UA YELLOW YELLOW [facility] Work Phone: Glucose, Ur Negative NEGATIVE [facility] Work Phone: Interpretation and review of laboratory results Abnormal [facility] Work Phone: Ketones Ql (U) Negative NEGATIVE [facility] Work Phone: Leukocyte esterase Test strip Ql (U) Negative NEGATIVE [facility] Work Phone: Nitrite, Urine Negative NEGATIVE [facility] Work Phone: pH, UA 5.0 [facility] [employer] Work Phone: Protein, UA TRACE Abnormal NEGATIVE [facility] [employer] Work Phone: Specific [place], UA 1.020 [facility] Work Phone: Turbidity UA CLEAR CLEAR [employer] Phone: Urinalysis Comments [employer] Phone: Urine Hgb Negative NEGATIVE [employer] Phone: Urobilinogen, Urine Normal Normal [employer] Phone: [employer] Phone: COVID-19Ordered By: Pattie smith on 01-22-2021 SARS-CoV-2 (COVID-19) RNA SHARMIN+probe Ql (Unsp spec) [employer] Phone: SARS-CoV-2 (COVID-19) RNA SHARMIN+probe Ql (Unsp spec) Not detected Not Detected [employer] Phone: Comment on above: The specimen is NEGATIVE for SARS-CoV-2, the novel coronavirus associated with COVID-19. A negative result does not rule out COVID-19. Twin SARS-CoV-2 for use on the [employer] is a real-time RT-PCR test intended [...] this assay. Fact sheet for Healthcare Providers: https://www.fda.gov/media/419214/download Fact sheet for Patients: https://www.fda.gov/media/059341/download METHODOLOGY: RT-PCR Source .THROAT [employer] Phone: COVID-19, PCRon 11-15-2020 SARS-CoV-2, Rapid Not Detected Not Detected [employer] Phone: Comment on above: Rapid NAAT: The [...] management decisions. Fact sheet for Healthcare Providers: https://www.[place].gov/media/763113/download Fact sheet for Patients: https://www.[place].gov/media/594923/download Methodology: Isothermal Nucleic Acid Amplification Source .THROAT [facility] Phone: Otheron 11-15-2020 SARS-CoV-2 [facility] Phone: CBC Auto Differentialon 09-04 Basophils (Bld) [#/Vol] 0.10 10*3/uL [place] Basophils/100 WBC (Bld) 1 % 0 - 2 % [place] Differential Type YES [facility] [place] Eosinophils (Bld) [#/Vol] 0.10 10*3/uL [place] Eosinophils/100 WBC (Bld) 1 % 0 - 5 % [place] Erythrocyte distribution width (RBC) [Ratio] 16.3 % High 12.1 - 15.2 % [place] Hematocrit (Bld) [Volume fraction] 36.5 % 36 - 46 % [place] Hemoglobin (Bld) [Mass/Vol] 12.5 g/dL 12 - 16 g/dL [place] Interpretation and review of laboratory results Abnormal [place] Lymphocytes (Bld) [#/Vol] 1.90 10*3/uL [place] Lymphocytes/100 WBC (Bld) 25 % 15 - 40 % [place] MCH (RBC) [Entitic mass] 28.8 pg 26 - 34 pg [place] MCHC (RBC) [Mass/Vol] 34.3 g/dL 31 - 37 g/dL [place] MCV (RBC) [Entitic vol] 84.0 fL 80 - 100 fL [place] Monocytes (Bld) [#/Vol] 0.40 10*3/uL [place] Monocytes/100 WBC (Bld) 5 % 4 - 8 % [place] Platelet mean volume (Bld) [Entitic vol] NOT REPORTED 6 - 12 fL [place] Platelets (Bld) [#/Vol] 167 10*3/uL [place] Platelets (Bld) [#/Vol] NOT REPORTED [place] RBC (Bld) [#/Vol] 4.35 10*6/uL 4 - 5.2 m/uL [place] RBC morphology finding Nom (Bld) NOT REPORTED [place] Segmented neutrophils/100 WBC (Bld) 68 % 47 - 75 % [place] Segs Absolute 5.40 [place] WBC (Bld) [#/Vol] 7.8 10*3/uL [place] WBC (Bld) [#/Vol] NOT REPORTED per 100 WBC [place] WBC Morphology NOT REPORTED [place] Comprehensive Metabolic Pane l w/ Reflex to MGon 09-16-2020 Albumin [Mass/Vol] 4.4 g/dL 3.5 - 5.2 g/dL [place] Albumin/Globulin [Mass ratio] NOT REPORTED [place] ALP [Catalytic activity/Vol] 117 U/L High 35 - 104 U/L [place] ALT [Catalytic activity/Vol] 41 U/L High 5 - 33 U/L [place] Anion gap [Moles/Vol] 10 mmol/L 9 - 17 mmol/L [place] AST [Catalytic activity/Vol] 39 U/L High <32 [place] Bilirubin Ql (U) 0.52 mg/dL 0.3 - 1.2 mg/dL [place] Bun/Cre Ratio 11 [place] Calcium [Mass/Vol] 9.0 mg/dL 8.6 - 10. 4 mg/dL [place] Chloride [Moles/Vol] 101 mmol/L 98 - 10 7 mmol/L [place] CO2 [Moles/Vol] 26 mmol/L 20 - 31 mmol/L [place] Creatinine [Mass/Vol] 1.32 mg/dL High 0.5 - 0.9 mg/dL [place] GFR 54 mL/min Low >60 [place] GFR Non- 44 mL/min Low >60 [place] GFR/1.73 sq M predicted among non-blacks MDRD (S/P/Bld) [Vol rate/Area] [place] Comment on above: Average GFR for 40-4 9 years old: 99 mL/min/1.73sq m Chronic Kidney Disease: <60 mL/min/1.73sq m Kidney failure: <15 mL/min/1.73sq m eGFR calculated using average adult body mass. Additional eGFR calculator available at: http://www.Mimiboard/multiple_crcl_2012.htm GFR/1.73 sq M predicted among non-blacks MDRD (S/P/Bld) [Vol rate/Area] NOT REPORTED [place] Glucose [Mass/Vol] 173 mg/dL High 70 - 99 mg/dL [place] Interpretation and review of laboratory results Abnormal [place] Potassium [Moles/Vol] 3.9 mmol/L 3.7 - 5.3 mmol/L [place] Protein [Mass/Vol] 7.3 g/dL 6.4 - 8.3 g/dL [place] Sodium [Moles/Vol] 137 mmol/L 135 - 144 mmol/L [place] Urea nitrogen [Mass/Vol] 15 mg/dL 6 - 20 mg/dL [place] Otheron 09-16-2020 Immature granulocytes (Bld) [#/Vol] NOT REPORTED [place] Sedimentation Rateon 020 Sed Rate 15 mm 0 - 20 mm [place] Urinalysis, reflex to micros copicon 09-16-2020 Bilirubin Urine Negative NEGATIVE [place] Color, UA YELLOW YELLOW [place] Glucose, Ur Negative NEGATIVE [place] Interpretation and review of laboratory results Abnormal [place] Ketones Ql (U) Negative NEGATIVE [place] Leukocyte esterase Test strip Ql (U) Negative NEGATIVE [place] Nitrite, Urine Negative NEGATIVE [place] pH, UA 5.0 [place] Protein (U) [Mass/Vol] TRACE Abnormal NEGATIVE [place] Specific [place], UA 1.025 [place], [place] Turbidity UA CLEAR CLEAR [place] Urinalysis Comments [place] Urine Hgb Negative NEGATIVE [place] Urobilinogen, Urine Normal Normal [place] C-Reactive Proteinon 020 CRP [Mass/Vol] 6 mg/L High 0 - 5 mg/L [place] Interpretation and review of laboratory results Abnormal [place] CBC With Auto Differentialon 08-24-2020 Basophils (Bld) [#/Vol] 0.00 10*3/uL [place] Basophils/100 WBC (Bld) 1 % 0 - 2 % [place] Differential Type YES [place] Eosinophils (Bld) [#/Vol] 0.10 10*3/uL [place] Eosinophils/100 WBC (Bld) 1 % 0 - 5 % [place] Erythrocyte distribution width (RBC) [Ratio] 16.2 % High 12.1 - 15.2 % [place] Hematocrit (Bld) [Volume fraction] 35.4 % Low 36 - 46 % [place] Hemoglobin (Bld) [Mass/Vol] 12.2 g/dL 12 - 16 g/dL [place] Interpretation and review of laboratory results Abnormal [place] Lymphocytes (Bld) [#/Vol] 1.60 10*3/uL [place] Lymphocytes/100 WBC (Bld) 28 % 15 - 40 % [place] MCH (RBC) [Entitic mass] 29.1 pg 26 - 34 pg [place] MCHC (RBC) [Mass/Vol] 34.5 g/dL 31 - 37 g/dL [place] MCV (RBC) [Entitic vol] 84.2 fL 80 - 100 fL [place] Monocytes (Bld) [#/Vol] 0.40 10*3/uL [place] Monocytes/100 WBC (Bld) 6 % 4 - 8 % [place] Platelet mean volume (Bld) [Entitic vol] NOT REPORTED 6 - 12 fL [place] Platelets (Bld) [#/Vol] 160 10*3/uL [place] Platelets (Bld) [#/Vol] NOT REPORTED [place] RBC (Bld) [#/Vol] 4.20 10*6/uL 4 - 5.2 m/uL [place] RBC morphology finding Nom (Bld) NOT REPORTED [place] Segmented neutrophils/100 WBC (Bld) 64 % 47 - 75 % [place] Segs Absolute 3.80 [place] WBC (Bld) [#/Vol] 5.8 10*3/uL [place] WBC (Bld) [#/Vol] NOT REPORTED per 100 WBC [place] WBC Morphology NOT REPORTED [place] Otheron 08-24-2020 Immature granulocytes (Bld) [#/Vol] NOT REPORTED 0 % [place] Sedimentation Rateon 020 Sed Rate 10 mm 0 - 20 mm [place] C-Reactive Proteinon 020 CRP [Mass/Vol] 2 mg/L 0 - 5 mg/L [place] CBC With Auto Differentialon 07-24-2020 Basophils (Bld) [#/Vol] 0.10 10*3/uL [place] Basophils/100 WBC (Bld) 1 % 0 - 2 % [place] Differential Type YES [place] Eosinophils (Bld) [#/Vol] 0.10 10*3/uL [place] Eosinophils/100 WBC (Bld) 1 % 0 - 5 % [place] Erythrocyte distribution width (RBC) [Ratio] 16.8 % High 12.1 - 15.2 % [place] Hematocrit (Bld) [Volume fraction] 40.0 % 36 - 46 % [place] Hemoglobin (Bld) [Mass/Vol] 13.5 g/dL 12 - 16 g/dL [place] Interpretation and review of laboratory results Abnormal [place] Lymphocytes (Bld) [#/Vol] 1.70 10*3/uL [place] Lymphocytes/100 WBC (Bld) 17 % 15 - 40 % [place] MCH (RBC) [Entitic mass] 29.1 pg 26 - 34 pg [place] MCHC (RBC) [Mass/Vol] 33.8 g/dL 31 - 37 g/dL [place] MCV (RBC) [Entitic vol] 86.0 fL 80 - 100 fL [place] Monocytes (Bld) [#/Vol] 0.50 10*3/uL [place] Monocytes/100 WBC (Bld) 5 % 4 - 8 % [place] Platelet mean volume (Bld) [Entitic vol] NOT REPORTED 6 - 12 fL [place] Platelets (Bld) [#/Vol] NOT REPORTED [place] Platelets (Bld) [#/Vol] 208 10*3/uL [place] RBC (Bld) [#/Vol] 4.65 10*6/uL 4 - 5.2 m/uL [place] RBC morphology finding Nom (Bld) NOT REPORTED [place] Segmented neutrophils/100 WBC (Bld) 76 % High 47 - 75 % [place] Segs Absolute 7.70 [place] WBC (Bld) [#/Vol] NOT REPORTED per 100 WBC [place] WBC (Bld) [#/Vol] 10.0 10*3/uL [place] WBC Morphology NOT REPORTED [place] Otheron 07-24-2020 Immature granulocytes (Bld) [#/Vol] NOT REPORTED 0 % [place] Sedimentation Rateon 020 Sed Rate 6 mm 0 - 20 mm [place] Protein / creatinine ratio, urineon 06-07-2020 Creatinine, Ur 101.2 mg/dL 28 - 217 mg/dL [place] Protein (U) [Mass/Vol] 8 mg/dL [place] Comment on above: No normal range esta blished. Urine Total Protein Creatinine Ratio 0.08 [place] Urinalysison 06-07-2020 Bilirubin Urine Negative NEGATIVE [place] Color, UA YELLOW YELLOW [place] Glucose, Ur 100 mg/dL Abnormal NEGATIVE [place] Interpretation and review of laboratory results Abnormal [place] Ketones Ql (U) Negative NEGATIVE [place] Leukocyte esterase Test strip Ql (U) Negative NEGATIVE [place] Nitrite, Urine Negative NEGATIVE [place] pH, UA 6.0 [place] Protein (U) [Mass/Vol] Negative NEGATIVE [place] Specific [place], UA 1.020 [place] Turbidity UA CLEAR CLEAR [place] Urinalysis Comments [place] Urine Hgb Negative NEGATIVE [place] Urobilinogen, Urine Normal Normal [place] Comprehensive Metabolic Pane ananda 05-25-2020 Albumin [Mass/Vol] 4.4 g/dL 3.5 - 5.2 g/dL [place] Albumin/Globulin [Mass ratio] NOT REPORTED [place] ALP [Catalytic activity/Vol] 87 U/L 35 - 104 U/L [place] ALT [Catalytic activity/Vol] 21 U/L 5 - 33 U/L [place] Anion gap [Moles/Vol] 10 mmol/L 9 - 17 mmol/L [place] AST [Catalytic activity/Vol] 22 U/L <32 [place] Bilirubin Ql (U) 0.32 mg/dL 0.3 - 1.2 mg/dL [place] Bun/Cre Ratio 18 [place] Calcium [Mass/Vol] 10.1 mg/dL 8.6 - 10. 4 mg/dL [place] Chloride [Moles/Vol] 104 mmol/L 98 - 10 7 mmol/L [place] CO2 [Moles/Vol] 26 mmol/L 20 - 31 mmol/L [place] Creatinine [Mass/Vol] 1.37 mg/dL High 0.5 - 0.9 mg/dL [place] GFR 52 mL/min Low >60 [place] GFR Non- 43 mL/min Low >60 [place] GFR/1.73 sq M predicted among non-blacks MDRD (S/P/Bld) [Vol rate/Area] NOT REPORTED [place] GFR/1.73 sq M predicted among non-blacks MDRD (S/P/Bld) [Vol rate/Area] [place] Comment on above: Average GFR for 40-4 9 years old: 99 mL/min/1.73sq m Chronic Kidney Disease: <60 mL/min/1.73sq m Kidney failure: <15 mL/min/1.73sq m eGFR calculated using average adult body mass. Additional eGFR calculator available at: http://www.Mimiboard/multiple_crcl_2012.htm Glucose [Mass/Vol] 160 mg/dL High 70 - 99 mg/dL [place] Interpretation and review of laboratory results Abnormal [place] Potassium [Moles/Vol] 4.6 mmol/L 3.7 - 5.3 mmol/L [place] Protein [Mass/Vol] 7.4 g/dL 6.4 - 8.3 g/dL [place] Sodium [Moles/Vol] 140 mmol/L 135 - 144 mmol/L [place] Urea nitrogen [Mass/Vol] 24 mg/dL High 6 - 20 mg/dL [place] Hemoglobin A1Con 05-25-2020 Glucose [Mass/Vol] 123 mg/dL [place], [place] Comment on above: The ADA and AACC rec ommend providing the estimated average glucose result to permit better patient understanding of their HBA1c result. HbA1c (Bld) [Mass fraction] 5.9 % 4 - 6 % [place] LDL Cholesterol, Directon Cholesterol in LDL [Mass/Vol] 58 mg/dL <100 [place] Lipid Panelon 05-25-2020 Cholesterol [Mass/Vol] 194 mg/dL <200 [place] Comment on above: Cholesterol Guidelines: <200 Desirable 200-240 Borderline >240 Undesirable Cholesterol in HDL [Mass/Vol] 27 mg/dL Low >40 [place] Comment on above: HDL Guidelines: <40 Undesirable 40-59 Borderline >59 Desirable Cholesterol in LDL [Mass/Vol] 0 - 130 mg/dL [place] Comment on above: Calculation not jacqueline d for Triglyceride value greater than 400 mg/dL. Direct LDL reflexed LDL Guidelines: <100 Desirable 100-129 Near to/above Desirable 130-159 Borderline >159 Undesirable Direct (measured) LDL and calculated LDL are not interchangeable tests. Cholesterol in VLDL [Mass/Vol] NOT REPORTED 1 - 30 mg/dL [place] Cholesterol.total/Chol esterol in HDL [Mass ratio] 7.2 {ratio} High <5 [place] Interpretation and review of laboratory results Abnormal [place] Triglyceride [Mass/Vol] 1112 mg/dL High <150 [place] Comment on above: Triglyceride Guidelines: <150 Desirable 150-199 Borderline 200-499 High >499 Very high Based on AHA Guidelines for fasting triglyceride, July 2012. Patient Fasting?on 0 Patient Fasting? YES [facility], [place] Vitamin D 25 Hydroxyon 05-25 Vit D, 25-Hydroxy 30.2 ng/mL 30 - 100 ng/mL [place] Comment on above: Reference Range: Vitamin D status Range Deficiency <20 ng/mL Mild Deficiency 20-30 ng/mL Sufficiency 30-100 ng/mL Toxicity >100 ng/mL C-Reactive Proteinon 020 CRP [Mass/Vol] 6.2 mg/L High 0 - 5 mg/L [place], [place] Interpretation and review of laboratory results Abnormal [place] Hemoglobin [id number] By: Kevin delgado Edendyanharinder on 09-24-2019 Glucose [Mass/Vol] 108 mg/dL [employer] Smartphone RFID Phone: Comment on above: The ADA and AACC rec ommend providing the estimated average glucose result to permit better patient understanding of their HBA1c result. HbA1c (Bld) [Mass fraction] 5.4 % 4.8 - 5.9 % [employer] Smart[employer] RFID Phone: Homocysteine, SerumOrdered B y: Janel Allen on 09-24-2019 Homocysteine 9 umol/L <15.0 [employer] Smart[employer] RFID Phone: TSH without ReflexOrdered By : Janel Tiffany on 09-24-2019 TSH Qn 1.03 m[IU]/L [employer] Smart[employer] RFID Phone: Vitamin B12 & FolateOrdered By: Janel Tiffany on 09-24-2019 Cobalamin (Vitamin B12) [Mass/Vol] 292 pg/mL 232 - 1245 pg/mL [employer] Smartphone RFID Phone: Folate 13.8 ng/mL >4.8 [employer] Smartphone RFID Phone: XR CERVICAL SPINE (4-5 VIEWS )on 07-29-2019 Mild degenerative changes cervical spine not unusual for age. Refer to the [facility] Imaging services 02/03/2019 with some of the findings discussed above. [place] EXAM: XR CERVICAL SPINE (4-5 VIEWS) HISTORY: Reason for exam:->history MRSA discitis of thoracic region. New tingling and numbness of fingers COMPARISON: MRI cervical spine [facility] 02/03/2019, cervical spine series 04/03/2010. The [...] Swimmer's lateral view shows no additional abnormality. 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 New tingling and numbness of fingers COMPARISON: MRI cervical spine [facility] 02/03/2019, cervical spine series 04/03/2010. The [...] unusual for age. Refer to the [facility] Imaging services 02/03/2019 with some of the findings discussed above. [place] C-Reactive ProteinOrdered By : Azaela Knight on 07-28-2019 CRP [Mass/Vol] 6.4 mg/L High 0 - 5 mg/L [place] Interpretation and review of laboratory results Abnormal [place] CBC With Auto DifferentialOr dered By: Azalea Knight on 07-28-2019 Absolute Eos # 0.10 [place], [place] Absolute Immature Granulocyte NOT REPORTED [place] Absolute Lymph # 2.10 [place], [place] Absolute [place] # 0.50 [place], [place] Basophils (Bld) [#/Vol] 0.00 10*3/uL [place] Basophils/100 WBC (Bld) 1 % 0 - 2 % [place] Differential Type YES [place], [place] Eosinophils/100 WBC (Bld) 1 % 0 - 5 % [place] Erythrocyte distribution width (RBC) [Ratio] 14.5 % 12.1 - 15.2 % [place] Hematocrit (Bld) [Volume fraction] 38.1 % 36 - 46 % [place] Hemoglobin (Bld) [Mass/Vol] 12.9 g/dL 12 - 16 g/dL [place] Immature Granulocytes NOT REPORTED 0 % [place], [place] Lymphocytes/100 WBC (Bld) 34 % 15 - 40 % [place] MCH (RBC) [Entitic mass] 29.5 pg 26 - 34 pg [place] MCHC (RBC) [Mass/Vol] 33.9 g/dL 31 - 37 g/dL [place], [place] MCV (RBC) [Entitic vol] 87.1 fL 80 - 100 fL [place], [place] Monocytes/100 WBC (Bld) 8 % 4 - 8 % [place] MPV NOT REPORTED 6 - 12 fL [place], [place] NRBC Automated NOT REPORTED per 100 WBC [place], [place] Platelet Estimate NOT REPORTED [place] Platelets (Bld) [#/Vol] 222 10*3/uL [place] RBC (Bld) [#/Vol] 4.38 10*6/uL 4 - 5.2 m/uL [place], [place] RBC morphology finding Nom (Bld) NOT REPORTED [place] Segmented neutrophils/100 WBC (Bld) 56 % 47 - 75 % [place] Segs Absolute 3.50 [place], [place] WBC (Bld) [#/Vol] 6.2 10*3/uL [place] WBC Morphology NOT REPORTED [place] Sedimentation RateOrdered By : Azalea Aroramichoacano on 07-28-2019 Sed Rate 19 mm 0 - 30 mm [place], [place] C-Reactive Proteinon 019 CRP [Mass/Vol] 7.3 mg/L High 0 - 5 mg/L [place] Interpretation and review of laboratory results Abnormal [place] Albuminon 06-17-2019 Albumin [Mass/Vol] 4.3 g/dL 3.5 - 5.2 g/dL [place], [place] BUN & Creatinineon 9 Creatinine [Mass/Vol] 1.27 mg/dL High 0.5 - 0.9 mg/dL [place] GFR 56 mL/min Low >60 [place], [place] GFR Non- 47 mL/min Low >60 [place] GFR/1.73 sq M predicted among non-blacks MDRD (S/P/Bld) [Vol rate/Area] NOT REPORTED [place] GFR/1.73 sq M predicted among non-blacks MDRD (S/P/Bld) [Vol rate/Area] [place] Comment on above: Average GFR for 40-4 9 years old: 99 mL/min/1.73sq m Chronic Kidney Disease: <60 mL/min/1.73sq m Kidney failure: <15 mL/min/1.73sq m eGFR calculated using average adult body mass. Additional eGFR calculator available at: http://www.[employer].Primary Data/multiple_crcl_2012.htm Interpretation and review of laboratory results Abnormal [place] Urea nitrogen [Mass/Vol] 18 mg/dL 6 - 20 mg/dL [place] Calciumon 06-17-2019 Calcium [Mass/Vol] 10.4 mg/dL 8.6 - 10. 4 mg/dL [place], [place] Electrolyte Panelon 06-17-20 19 Anion gap [Moles/Vol] 13 mmol/L 9 - 17 mmol/L [place] Chloride [Moles/Vol] 103 mmol/L 98 - 10 7 mmol/L [place] CO2 [Moles/Vol] 24 mmol/L 20 - 31 mmol/L [place] Potassium [Moles/Vol] 3.8 mmol/L 3.7 - 5.3 mmol/L [place] Sodium [Moles/Vol] 140 mmol/L 135 - 144 mmol/L [place] Hemoglobin and Hematocrit, B loodon 06-17-2019 Hematocrit (Bld) [Volume fraction] 35.4 % Low 36 - 46 % [place] Hemoglobin (Bld) [Mass/Vol] 12.1 g/dL 12 - 16 g/dL [place] Interpretation and review of laboratory results Abnormal [place] Magnesiumon 06-17-2019 Magnesium [Mass/Vol] 2.3 mg/dL 1.6 - 2 .6 mg/dL [place] Microscopic Urinalysison Amorphous, UA NOT REPORTED None [place], [place] Bacteria, UA 1+ Abnormal None [place], [place] Casts UA NOT REPORTED /LPF [place] Crystals UA NOT REPORTED None /HPF [place] Epithelial Cells UA 2 TO 5 /HPF [place] Interpretation and review of laboratory results Abnormal [place] Mucus, UA NOT REPORTED None [place] Other Observations UA NOT REPORTED NOT REQ. [place], [place] RBC (U) [#/Vol] NOT REPORTED [place], [place] Renal Epithelial, Urine NOT REPORTED 0 /HPF [place], [place] Trichomonas, UA NOT REPORTED None [place], [place] WBC, UA 0 TO 2 0 /HPF [place] Yeast, UA NOT REPORTED None [place], [place] - [place] Phosphoruson 06-17-2019 Phosphate [Mass/Vol] 3.0 mg/dL 2.6 - 4 .5 mg/dL [place] Protein / creatinine ratio, urineon 06-17-2019 Creatinine, Ur 228.2 mg/dL High 28 - 217 mg/dL [place] Interpretation and review of laboratory results Abnormal [place] Protein (U) [Mass/Vol] 18 mg/dL [place] Comment on above: No normal range esta blished. Urine Total Protein Creatinine Ratio 0.08 [place], [place] Sedimentation Rateon 019 Sed Rate 24 mm 0 - 30 mm [place] Urinalysison 06-17-2019 Bilirubin Urine Negative NEGATIVE [place], [place] Color, UA YELLOW YELLOW [place], [place] Glucose, Ur Negative NEGATIVE [place] Interpretation and review of laboratory results Abnormal [place] Ketones Ql (U) Negative NEGATIVE [place], [place] Leukocyte esterase Test strip Ql (U) Negative NEGATIVE [place] Nitrite, Urine Negative NEGATIVE [place] pH, UA 6.0 [place], [place] Protein (U) [Mass/Vol] TRACE Abnormal NEGATIVE [place], [place] Specific [place], UA 1.025 [place], [place] Turbidity UA HAZY Abnormal CLEAR [place] Urinalysis Comments [place] Urine Hgb Negative NEGATIVE [place] Urobilinogen, Urine Normal Normal [place] MR CERVICAL SPINE WITHOUT CO NTRASTon [...] or cord edema. /cdr Workstation ID: [id number] [facility] EXAMINATION: MR CERVICAL SPINE WITHOUT CONTRAST HISTORY: [...] neural foraminal stenosis. [facility], [facility] In Aric Mohanq - 02/03/2019 [...] [facility] Workstation ID: [id number] [facility] MR CERVICAL SPINE WITHOUT CONTRAST EXAMINATION: MR [...] ThuFebruary 03, 2019 10:59:35 AM EDT Normal [facility] Comment on above: [...] 48 DAYS Report Status FINAL 10/11/2018 Normal [facility] Comment on above: Performed By: #### T ROPI #### [employer] [address] [place] [address] Cult,Mycobacteria Specimen Description .SPINE .TISSUE T4 LAMINA Special Requests NOT REPORTED Direct Exam NO ACID FAST BACILLI SEEN (DIRECT SMEAR) Culture NO GROWTH 48 DAYS Report Status FINAL 10/11/2018 [facility] Comment on above: Performed By: #### L ACWB #### [employer] [address] [place] [id number] Cult,Funguson 09-27-2018 Cult,Fungus Specimen Description .TISSUE EPIDURAL TISSUE Special Requests NOT REPORTED Culture NO GROWTH 34 DAYS Report Status FINAL 09/27/2018 Normal [facility] Comment on above: Performed By: #### L ACWB #### [facility] [address] [place], [place] [id number] Cult,Fungus Specimen Description .SPINE .TISSUE T4 LAMINA Special Requests NOT REPORTED Culture NO GROWTH 34 DAYS Report Status FINAL 09/27/2018 Normal [facility] Comment on above: Performed By: #### L ACWB #### [facility] [address] [place] [address] BUNon 09-23-2018 Urea nitrogen mass conc 20 mg/dL Normal 03-27 [facility] Comment on above: Performed By: #### 2 [id number] ####[employer] [address] [place] [address] Creatinineon 09-23-2018 Creatinine mass conc 1.3 mg/dL High 0.5-1.1 [facility] Comment on above: Performed By: #### 2 [id number] ####[employer] [address] [place] [address] eGFRon 09-23-2018 eGFR AA 54 mL/min/1.[address] [facility] Comment on above: Order Comment: Order added by Discern Expert. Performed By: #### 2 [id number] ####[employer] [address] [place] [address] GFR/1.73 sq M predicted among non-blacks MDRD vol rate/area (S/P/Bld) 45 mL/min/1.73 m2 [facility] Comment on above: Order Comment: Order added by Discern Expert. Performed By: #### 2 [id number] ####[employer] [address] [place] [address] Auto Diffon 09-20-2018 Basophils Auto #/vol (Bld) 0.0 E3/mcL Normal 0.0-0.2 [facility] Comment on above: Order Comment: Order Added by Discern Expert. Performed By: #### 2 [id number] ####[employer] [address] [place] [address] Basophils/100 WBC Auto (Bld) 1.1 % Normal 0.0-2.0 [facility] Comment on above: Order Comment: Order Added by Discern Expert. Performed By: #### 2 [id number] ####[employer] [address] [place] [address] Eos Absolute 0.0 E3/mcL Normal 0.0-0.7 [facility] Comment on above: Order Comment: Order Added by Discern Expert. Performed By: #### 2 [id number] ####[employer] [address] [place] [address] Eosinophils/100 WBC Auto (Bld) 0.3 % Normal 0.0-11.0 [facility] Comment on above: Order Comment: Order Added by Discern Expert. Performed By: #### 2 [id number] ####[employer] [address] [place] [address] Lymphocytes Auto #/vol (Bld) 1.2 E3/mcL Normal 1.2-3.4 [facility] Comment on above: Order Comment: Order Added by Discern Expert. Performed By: #### 2 [id number] ####[employer] [address] [place] [address] Lymphocytes/100 WBC Auto (Bld) 30.6 % Normal 20.0-55.0 [facility] Comment on above: Order Comment: Order Added by Discern Expert. Performed By: #### 2 [id number] ####[employer] [address]tk[address]urg[address] [place] [address] [place] Absolute 0.4 E3/mcL Normal 0.0-0.7 [facility] Comment on above: Order Comment: Order Added by Discern Expert. Performed By: #### 2 [id number] ####[employer] [address] [place] [address] Monocytes/100 WBC Auto (Bld) 10.2 % High 0.0-10.0 [facility] Comment on above: Order Comment: Order Added by Discern Expert. Performed By: #### 2 [id number] ####[employer] [address] [place] [address] Neutro Absolute 2.3 E3/mcL Normal 1.4-6.5 [facility] Comment on above: Order Comment: Order Added by Discern Expert. Performed By: #### 2 [id number] ####[employer] [address] [place] [address] Neutro Auto 57.8 % Normal 37.0-75.0 [facility] Comment on above: Order Comment: Order Added by Discern Expert. Performed By: #### 2 [id number] ####[employer] [address] [place] [address] CBC w/ Auto Diffon 8 Erythrocyte distribution width Auto Ratio (RBC) 19.9 % High 11.5-14.5 [facility] Comment on above: Performed By: #### 2 [id number] ####[employer] [address] [place] [address] Hematocrit Auto Volume Fraction (Bld) 26.5 % Low 36.0-48.0 [facility] Comment on above: Performed By: #### 2 [id number] ####[employer] [address] [place] [id number] Hemoglobin mass conc (Bld) 8.7 g/dL Low 12.0-16.0 [facility] Comment on above: Performed By: #### 2 [id number] ####[employer] [address] [place] [address] MCH Auto Entitic mass (RBC) 29.6 pg Normal 27.0-31.0 [facility] Comment on above: Performed By: #### 2 [id number] ####[facility] [address] [place] [address] MCHC Auto mass conc (RBC) 32.9 g/dL Low 33.0-37.0 [facility] Comment on above: Performed By: #### 2 [id number] ####[facility] [address] [place] [address] MCV Auto Entitic volume (RBC) 89.8 fL Normal 78.0-100.0 [facility] Comment on above: Performed By: #### 2 [id number] ####[employer] [address] [place] [address] Platelet mean volume Auto Entitic volume (Bld) 10.5 fL Normal 7.4-11.0 [facility] Comment on above: Performed By: #### 2 [id number] ####[facility] [address] [place] [address] Platelets Auto #/vol (Bld) 117 E3/mcL Low 130-400 [facility] Comment on above: Performed By: #### 2 [id number] ####[employer] [address] [place] [address] RBC Auto #/vol (Bld) 2.95 E6/mcL Low 3.90-5.40 [facility] Comment on above: Performed By: #### 2 [id number] ####[employer] [address] [place] [address] WBC Auto #/vol (Bld) 4.0 E3/mcL Normal 3.6-11.0 [facility] Comment on above: Performed By: #### 2 [id number] ####[facility] [address] [place] [address] CRPon 09-20-2018 CRP mass conc 0.83 mg/dL Normal 0.00-1.00 [facility] Comment on above: Performed By: #### 2 [id number] ####[facility] [address] [place] [address] Morphon 09-20-2018 Anisocytosis Auto Ql (Bld) 1+ Normal [facility] Comment on above: Order Comment: Order Added by Discern Expert. Performed By: #### 1 [id number] ####[employer] [address] [place] [address] Hypochromasia 1+ Normal [facility] Comment on above: Order Comment: Order Added by Discern Expert. Performed By: #### 1 [id number] ####[facility] [address] [place] [address] RBC morphology finding Nom (Bld) SEE MORPHOLOGY Normal [facility] Comment on above: Order Comment: Order Added by Discern Expert. Performed By: #### 1 [id number] ####[facility] [address] [place] [address] Sed Rate Automatedon 018 Sed Rate Automated 15 mm/hr Normal [facility] Comment on above: Result Comment: AGE- SPECIFIC REFERENCE RANGES FOR SEDIMENTATION RATE AUTOMATED REFERENCE RANGE - MM/HR AGE MEN WOMEN 0-2 0-2 - PUBERTY 3-13 3-13 PUBERTY - 50 YRS 0-15 0-20 > 50 YRS 0-20 0-30 Performed By: #### 1 [id number] ####[facility] Hematology Manual [address] [place] [id number] zzplt morphon 09-20-2018 Platelet morphology finding Nom (Bld) NORMAL Normal [facility] Comment on above: Performed By: #### 9 [id number] ####[facility] [address] [place] [id number] Platelets Auto #/vol (Bld) NORMAL Normal [facility] Comment on above: Performed By: #### 9 [id number] ####[facility] [address] [place] [address] BLOOD UREA NITROGENon 2017 Urea nitrogen mass conc (Bld) 19 mg/dL Normal 7-20 [facility] Comment on above: Performed By: #### A CBC, ESR, BUN, CREAT, CREACT, FX ####Testing performed at [place] [id number] C REACTIVE PROTEINon 018 CRP mass conc 18.5 mg/L High 0-10.0 [facility] Comment on above: Performed By: #### A CBC, ESR, BUN, CREAT, CREACT, FX ####Testing performed at [address] [address] CBCon 09-13-2018 ABSOLUTE BAS 0.1 X10 Normal [facility] Comment on above: Performed By: #### A CBC, ESR, BUN, CREAT, CREACT, FX ####Testing performed at [address] [address] ABSOLUTE EOS 0.20 X10 Normal [facility] Comment on above: Performed By: #### A CBC, ESR, BUN, CREAT, CREACT, FX ####Testing performed at [facility] [address] [place] [address] ABSOLUTE NEUTROPHIL COUNT 2.5 x10 Normal 1.0-7.0 [facility] Comment on above: Performed By: #### A CBC, ESR, BUN, CREAT, CREACT, FX ####Testing performed at [address] [address] Basophils/100 WBC Auto (Bld) 1.4 % Normal 0.0-2.0 [facility] Comment on above: Performed By: #### A CBC, ESR, BUN, CREAT, CREACT, FX ####Testing performed at [address] [address] DTYPE AUTO DIFF Normal [facility] Comment on above: Performed By: #### A CBC, ESR, BUN, CREAT, CREACT, FX ####Testing performed at [address] [address] Eosinophils/100 WBC Auto (Bld) 3.5 % Normal 0.0-11.0 [facility] Comment on above: Performed By: #### A CBC, ESR, BUN, CREAT, CREACT, FX ####Testing performed at [address] [address] Lymphocytes Auto #/vol (Bld) 1.10 X10 Normal [facility] Comment on above: Performed By: #### A CBC, ESR, BUN, CREAT, CREACT, FX ####Testing performed at [address] [address] Lymphocytes/100 WBC Auto (Bld) 27.0 % Normal 20.0-55.0 [facility] Comment on above: Performed By: #### A CBC, ESR, BUN, CREAT, CREACT, FX ####Testing performed at [address] [address] Monocytes Auto #/vol (Bld) 0.4 X10 Normal [facility] Comment on above: Performed By: #### A CBC, ESR, BUN, CREAT, CREACT, FX ####Testing performed at [address] [address] Monocytes/100 WBC Auto (Bld) 9.4 % Normal 0.0-10.0 [facility] Comment on above: Performed By: #### A CBC, ESR, BUN, CREAT, CREACT, FX ####[place] [address] Neutrophils/100 WBC Auto (Bld) 58.7 % Normal 37.0-75.0 [facility] Comment on above: Performed By: #### A CBC, ESR, BUN, CREAT, CREACT, FX ####[place] [address] Erythrocyte distribution width Auto Ratio (RBC) 17.6 % High 11.5-14.5 [facility] Comment on above: Performed By: #### A CBC, ESR, BUN, CREAT, CREACT, FX ####[place] [address] Hematocrit Auto Volume Fraction (Bld) 26.2 % Low 36.0-48.0 [facility] Comment on above: Performed By: #### A CBC, ESR, BUN, CREAT, CREACT, FX ####[place] [address] Hemoglobin mass conc (Bld) 8.8 g/dL Low 12.0-16.0 [facility] Comment on above: Performed By: #### A CBC, ESR, BUN, CREAT, CREACT, FX ####[place] [address] MCH Auto Entitic mass (RBC) 29.3 pg Normal 26.0-35.0 [facility] Comment on above: Performed By: #### A CBC, ESR, BUN, CREAT, CREACT, FX ####[place] [address] MCHC Auto mass conc (RBC) 33.7 g/dL Normal 27.0-37.0 [facility] Comment on above: Performed By: #### A CBC, ESR, BUN, CREAT, CREACT, FX ####[place] [address] MCV Auto Entitic volume (RBC) 86.9 fL Normal 80.0-100.0 [facility] Comment on above: Performed By: #### A CBC, ESR, BUN, CREAT, CREACT, FX ####[place] [address] Platelet mean volume Auto Entitic volume (Bld) 10.1 fL Normal 7.4-11.0 [facility] Comment on above: Performed By: #### A CBC, ESR, BUN, CREAT, CREACT, FX ####[place] [address] Platelets Auto #/vol (Bld) 130 /cmm Normal 130.0-400.0 [facility] Comment on above: Performed By: #### A CBC, ESR, BUN, CREAT, CREACT, FX ####[place] [address] RBC Auto #/vol (Bld) 3.01 /cmm Low 4.0-5.4 [facility] Comment on above: Performed By: #### A CBC, ESR, BUN, CREAT, CREACT, FX ####[place] [address] WBC Auto #/vol (Bld) 4.2 /cmm Normal 3.6-11.0 [facility] Comment on above: Performed By: #### A CBC, ESR, BUN, CREAT, CREACT, FX ####[place] [address] CREATININE,SERUMon 8 Creatinine mass conc 1.5 mg/dL High 0.52-1.04 [facility] Comment on above: Performed By: #### A CBC, ESR, BUN, CREAT, CREACT, FX ####[place] [address] EST. GFR, 50 ml/min/1.73sq.m Normal [facility] Comment on above: Performed By: #### A CBC, ESR, BUN, CREAT, CREACT, FX ####[place] [address] EST. GFR,Non 41 ml/min/1.73sq.m [facility] Comment on above: Performed By: #### A CBC, ESR, BUN, CREAT, CREACT, FX ####[place] [address] GFR/1.73 sq M predicted among non-blacks MDRD vol rate/area (S/P/Bld) Average GFR for 30-39 years old = 109. [facility] Comment on above: Result Comment: [employer]ur[employer] Supervisor vasu Kidney disease, GFR = <60.Kidney failure, GFR = <15.The GFR estimate is not adjusted for extreme body surface area or acute process, nor has it been validated for women or ethnic groups other than and . Performed By: #### A CBC, ESR, BUN, CREAT, CREACT, FX ####[place] [address] ESRon 09-13-2018 ESR Velocity (Bld) 49 mm/h High 0-15 [facility] Comment on above: Performed By: #### A CBC, ESR, BUN, CREAT, CREACT, FX ####Testing performed at [place] [id number] FAX REQUESTon 09-13-2018 FAX TO FAX TO DR HARTMAN AT [phone] AND TO [facility] AT [phone] [facility] Comment on above: Performed By: #### P HY, BUN, CREAT, FX ####Testing performed at [address] [address] FAX REQUESTon 09-06-2018 FAX TO [phone] [facility] Comment on above: Performed By: #### F X ####Testing performed at [place] [id number] BLOOD UREA NITROGENon 2017 Urea nitrogen mass conc (Bld) 21 mg/dL High 7-20 [facility] [facility] Comment on above: Performed By: #### P HY, BUN, CREAT, FX ####Testing performed at [place] [id number] CREATININE,SERUMon 8 Creatinine mass conc 1.4 mg/dL High 0.52-1.04 [facility] Comment on above: Performed By: #### P HY, BUN, CREAT, FX ####Testing performed at [place] [id number] EST. GFR, 54 ml/min/1.73sq.m [facility] Comment on above: Performed By: #### P HY, BUN, CREAT, FX ####Testing performed at [place] [id number] EST. GFR,Non 44 ml/min/1.73sq.m [facility] Comment on above: Performed By: #### P HY, BUN, CREAT, FX ####[place] [address] GFR/1.73 sq M predicted among non-blacks MDRD vol rate/area (S/P/Bld) Average GFR for 30-39 years old = 109. [facility] Comment on above: Result Comment: Pasteurizing Supervisor vasu Kidney disease, GFR = <60.Kidney failure, GFR = <15.The GFR estimate is not adjusted for extreme body surface area or acute process, nor has it been validated for women or ethnic groups other than and . Performed By: #### P HY, BUN, CREAT, FX ####Testing performed at [place] [id number] FAX REQUESTon 08-31-2018 FAX TO [phone] [facility] Comment on above: Performed By: #### P HY, BUN, CREAT, FX ####Testing performed at [address] [address] KATERINE VINCENT PHYSICIANmateo 08-31-20 18 [facility]AL [facility] PHYSICIAN DEVAN UP [facility] Comment on above: Performed By: #### P HY, BUN, CREAT, FX ####Testing performed at [address] [address] BUNon 08-27-2018 Urea nitrogen mass conc 24 mg/dL High 03-27 [facility] Comment on above: Performed By: #### 2 [id number] ####OVIDIO [id number] [place] [address] Creatinineon 08-27-2018 Creatinine mass conc 1.6 mg/dL High 0.5-1.1 [facility] Comment on above: Performed By: #### 2 [id number] ####OVIDIO [id number] [place] [address] eGFRon 08-27-2018 eGFR AA 43 mL/min/1.[address] [facility] Comment on above: Order Comment: Order added by Discern Expert. Performed By: #### 1 [id number] ####OVIDIO [id number] [place] [address] GFR/1.73 sq M predicted among non-blacks MDRD vol rate/area (S/P/Bld) 36 mL/min/1.73 m2 [facility] Comment on above: Order Comment: Order added by Discern Expert. Performed By: #### 1 [id number] ####OVIDIO [id number] [place] [address] Cult,Tissueon 08-26-2018 Cult,Tissue Specimen Description .TISSUE EPIDURAL [...] Trimethoprim/Sulfa <=10 SUSCEPTIBLE Vancomycin <=0.5 SUSCEPTIBLE Normal [facility] Comment on above: Performed By: #### L ACWB #### [facility] [place], [place] [id number] Cult,Tissue Specimen Description .SPINE .TISSUE T4 LAMINA [...] Trimethoprim/Sulfa <=10 SUSCEPTIBLE Vancomycin <=0.5 SUSCEPTIBLE Normal [facility] Comment on above: Performed By: #### L ACWB #### [facility] [address] [place] [address] Basic Metabolic Profon 08-25 (cont.) Normal [facility] Comment on above: Result Comment: Aver age GFR for 30-39 years old: 107 mL/min/1.73sq m Chronic Kidney Disease: <60 mL/min/1.73sq m Kidney failure: <15 mL/min/1.73sq m eGFR calculated using average adult body mass. Additional eGFR calculator available at: http://www.Mimiboard/multiple_crcl_2012.htm Performed By: #### L ACWB #### [facility] [address] [place] [address] Anion gap molar conc 14 mmol/L Normal 9-17 [facility] Comment on above: Performed By: #### L ACWB #### [facility] [address] [place] [address] Calcium mass conc 9.1 mg/dL Normal 8.6-10.4 [facility] Comment on above: Performed By: #### L ACWB #### [facility] [address] [place] [address] Chloride molar conc 96 mmol/L Low 98-107 [facility] Comment on above: Performed By: #### L ACWB #### [facility] [address] [place] [address] CO2 molar conc 23 mmol/L Normal 20-31 [facility] Comment on above: Performed By: #### L ACWB #### [facility] [address] [place] [address] Creatinine mass conc 1.52 mg/dL High 0.50-0.90 [facility] Comment on above: Performed By: #### L ACWB #### [facility] [address] [place] [address] GFR, Amer 46 mL/min Low >60 [facility] Comment on above: Performed By: #### L ACWB #### [facility] [address] [place] [address] GFR,non Amer 38 mL/min Low >60 [facility] Comment on above: Performed By: #### L ACWB #### [facility] [address] [place] [address] Glucose mass conc 95 mg/dL Normal 70-99 [facility] Comment on above: Performed By: #### L ACWB #### [facility] [address] [place] [address] Potassium molar conc 4.5 mmol/L Normal 3.7-5.3 [facility] Comment on above: Performed By: #### L ACWB #### [facility] [address] [place] [address] Sodium molar conc 133 mmol/L Low 135-144 [facility] Comment on above: Performed By: #### L ACWB #### [facility] [address] [place] [address] Urea nitrogen mass conc 43 mg/dL High 6-20 [facility] Comment on above: Performed By: #### L ACWB #### [address] [address] BUN/CRE Ratio NOT REPORTED Normal - [facility] Comment on above: Performed By: #### L ACWB #### [address] [address] Staging: NOT REPORTED Normal [facility] Comment on above: Performed By: #### L ACWB #### [address] [address] CBC with Diffon 08-25-2018 Abs. Basophil 0.07 k/uL Normal 0.00-0.20 [facility] Comment on above: Performed By: #### L ACWB #### [address] [address] Abs.Imm.Granulocyte 0.08 k/uL Normal 0.00-0.30 [facility] Comment on above: Performed By: #### L ACWB #### [address] [address] Abs.Neutrophil (Seg) 5.77 k/uL Normal 1.50-8.10 [facility] Comment on above: Performed By: #### L ACWB #### [address] [address] Basophils/100 WBC (Bld) 1 % Normal 0-2 [facility] Comment on above: Performed By: #### L ACWB #### [address] [address] Eosinophils #/vol (Bld) 0.12 10*3/uL Normal 0.00-0.44 [facility] Comment on above: Performed By: #### L ACWB #### [address] [address] Eosinophils/100 WBC (Bld) 1 % Normal 1-4 [facility] Comment on above: Performed By: #### L ACWB #### [address] [address] Immature granulocytes #/vol (Bld) 1 % High 0 [facility] Comment on above: Performed By: #### L ACWB #### [address] [address] Lymphocytes #/vol (Bld) 1.83 10*3/uL Normal 1.10-3.70 [facility] Comment on above: Performed By: #### L ACWB #### [address] [address] Lymphocytes/100 WBC (Bld) 21 % Low 24-43 [facility] Comment on above: Performed By: #### L ACWB #### [address] [address] Monocytes #/vol (Bld) 0.92 10*3/uL Normal 0.10-1.20 [facility] Comment on above: Performed By: #### L ACWB #### [address] [address] Monocytes/100 WBC (Bld) 11 % Normal 3-12 [facility] Comment on above: Performed By: #### L ACWB #### [address] [address] Neutrophil (Seg) 66 % High 36-65 [facility] Comment on above: Performed By: #### L ACWB #### [address] [address] Erythrocyte distribution width Ratio (RBC) 14.6 % High 11.8-14.4 [facility] Comment on above: Performed By: #### L ACWB #### [address] [address] Hematocrit Volume Fraction (Bld) 32.6 % Low 36.3-47.1 [facility] Comment on above: Performed By: #### L ACWB #### [address] [address] Hemoglobin mass conc (Bld) 10.0 g/dL Low 11.9-15.1 [facility] Comment on above: Performed By: #### L ACWB #### [address] [address] MCH Entitic mass (RBC) 28.2 pg Normal 25.2-33.5 [facility] Comment on above: Performed By: #### L ACWB #### [address] [address] MCHC mass conc (RBC) 30.7 g/dL Normal 28.4-34.8 [facility] Comment on above: Performed By: #### L ACWB #### [address] [address] MCV Entitic volume (RBC) 91.8 fL Normal 82.6-102.9 [facility] Comment on above: Performed By: #### L ACWB #### [address] [address] NRBC Automated 0.0 per 100 WBC Normal 0.0 [facility] Comment on above: Performed By: #### L ACWB #### [address] [address] Platelet mean volume Entitic volume (Bld) 10.4 fL Normal 8.1-13.5 [facility] Comment on above: Performed By: #### L ACWB #### [address] [address] Platelets #/vol (Bld) 292 10*3/uL Normal 138-453 [facility] Comment on above: Performed By: #### L ACWB #### [address] [address] RBC #/vol (Bld) 3.55 10*6/uL Low 3.95-5.11 [facility] Comment on above: Performed By: #### L ACWB #### [facility] [address] [place] [address] RBC morphology finding Nom (Bld) ANISOCYTOSIS PRESENT Normal [facility] Comment on above: Performed By: #### L ACWB #### [address] [address] WBC #/vol (Bld) 8.8 10*3/uL Normal 3.5-11.3 [facility] Comment on above: Performed By: #### L ACWB #### [address] [address] Auto Diff Performed NOT REPORTED Normal [facility] Comment on above: Performed By: #### L ACWB #### [address] [address] Platelets #/vol (Bld) NOT REPORTED Normal [facility] Comment on above: Performed By: #### L ACWB #### [facility] [address] [place] [address] WBC Morphology NOT REPORTED Normal [facility] Comment on above: Performed By: #### L ACWB #### [address] [address] Fungi,Direct Examon 08-25-20 18 Fungi,Direct Exam Specimen Description .SPINE .TISSUE T4 LAMINA Special Requests NOT REPORTED Direct Exam NO FUNGAL ELEMENTS SEEN Report Status FINAL 08/25/2018 Normal [facility] Comment on above: Performed By: #### L ACWB #### [facility] [place] [address] Magnesiumon 08-25-2018 Magnesium mass conc 2.4 mg/dL Normal 1.6-2.6 [facility] Comment on above: Performed By: #### L ACWB #### [facility] [address] [place] [address] Procalcitoninon 08-25-2018 Protein mass conc 0.13 ng/mL High <0.09 [facility] Comment on above: Result Comment: Suspected [...] entered into the Change in Procalcitonin Calculator (www.dowtwa-zxy-azzjfidoui.com) to determine the patient's Mortality Risk Prognosis Performed By: #### L ACWB #### [facility] [place] [address] Cult,Aerobe/Anaerobeon 08-24 Cult,Aerobe/Anaerobe Specimen Descriptio n .SPINE Special Requests NOT REPORTED Direct Exam DUPLICATE ORDER SEE RESULTS FOR TISSUE CULTURE Culture NOT REPORTED Report Status FINAL 08/24/2018 Normal [facility] Comment on above: Performed By: #### S PAG #### [facility] [address] [place] [address] Cult,Aerobe/Anaerobe Specimen Descriptio n .SPINE Special Requests NOT REPORTED Direct Exam DUPLICATE ORDER SEE RESUULTS FOR TISSUE CULTURE Culture NOT REPORTED Report Status FINAL 08/24/2018 Normal [facility] Comment on above: Performed By: #### S PAG #### [facility] [address] [place] [address] FLUORO FOR SURGICAL PROCEDUR ESon 08-24-2018 FLUORO FOR SURGICAL PROCEDURES Radiology exam is complete. No Radiologist dictation. Please follow up with ordering provider. Final result Normal [facility] OPERATIVE REPORTon 8 OPERATIVE REPORT [facility] [address] [place] [address] OPERATIVE REPORT PATIENT NAME: CELINA GASPAR : 1980 MED REC NO: [id number] [facility] ACCOUNT NO: [id number] ADMIT DATE: 08/15/2018 PROVIDER: Lita Mccray MD DATE OF PROCEDURE: 08/23/2018 SURGEON: Lita Mccray MD [employer] SUPERVISOR: Eliel Larios DO PREOPERATIVE DIAGNOSIS: Epidural abscess, [...] satisfactory condition. LITA MCCRAY MD [id number] Doc#: [id number] CC: Lita Mccray MD Normal [facility] Procalcitoninon 08-24-2018 Protein mass conc 0.16 ng/mL High <0.09 [facility] Comment on above: Result Comment: Suspected [...] entered into the Change in Procalcitonin Calculator (www.zqbrhh-jro-ukdzcwerus.Primary Data) to determine the patient's Mortality Risk Prognosis Performed By: #### S PAG #### [facility] [place], [place] [id number] Basic Metab w/rfx MGon 08-23 (cont.) Normal [facility] Comment on above: Result Comment: Aver age GFR for 30-39 years old: 107 mL/min/1.73sq m Chronic Kidney Disease: <60 mL/min/1.73sq m Kidney failure: <15 mL/min/1.73sq m eGFR calculated using average adult body mass. Additional eGFR calculator available at: http://www.[employer]ob[employer] srl.Primary Data/multiple_crcl_2012.htm Performed By: #### S PAG #### [employer] [address] [place], [place] [id number] Anion gap molar conc 14 mmol/L Normal 9-17 [facility] Comment on above: Performed By: #### S PAG #### [employer] [address] [place], [place] [id number] Calcium mass conc 9.9 mg/dL Normal 8.6-10.4 [facility] Comment on above: Performed By: #### S PAG #### [facility] [address] [place] [address] Chloride molar conc 99 mmol/L Normal 98-107 [facility] Comment on above: Performed By: #### S PAG #### [facility] [place] [address] CO2 molar conc 26 mmol/L Normal 20-31 [facility] Comment on above: Performed By: #### S PAG #### [facility] [address] [place] [address] Creatinine mass conc 1.42 mg/dL High 0.50-0.90 [facility] Comment on above: Performed By: #### S PAG #### [facility] [address] [place] [address] GFR, Amer 50 mL/min Low >60 [facility] Comment on above: Performed By: #### S PAG #### [facility] [address] [place] [address] GFR,non Amer 41 mL/min Low >60 [facility] Comment on above: Performed By: #### S PAG #### [facility] [address] [place] [address] Glucose mass conc 95 mg/dL Normal 70-99 [facility] Comment on above: Performed By: #### S PAG #### [facility] [address] [place] [address] Potassium molar conc 4.9 mmol/L Normal 3.7-5.3 [facility] Comment on above: Result Comment: SPEC IMEN SLIGHTLY HEMOLYZED, RESULTS MAY BE ADVERSELY AFFECTED. Performed By: #### S PAG #### [facility] [address] [place] [address] Sodium molar conc 139 mmol/L Normal 135-144 [facility] Comment on above: Performed By: #### S PAG #### [address] [address] Urea nitrogen mass conc 31 mg/dL High 6-20 [facility] Comment on above: Performed By: #### S PAG #### [address] [address] BUN/CRE Ratio NOT REPORTED Normal 9- [facility] Comment on above: Performed By: #### S PAG #### [address] [address] Staging: NOT REPORTED Normal [facility] Comment on above: Performed By: #### S PAG #### [address] [address] CBC with Diffon 08-23-2018 Abs. Basophil 0.06 k/uL Normal 0.00-0.20 [facility] Comment on above: Performed By: #### S PAG #### [address] [address] Abs.Imm.Granulocyte 0.22 k/uL Normal 0.00-0.30 [facility] Comment on above: Performed By: #### S PAG #### [address] [address] Abs.Neutrophil (Seg) 4.43 k/uL Normal 1.50-8.10 [facility] Comment on above: Performed By: #### S PAG #### [address] [address] Basophils/100 WBC (Bld) 1 % Normal 0-2 [facility] Comment on above: Performed By: #### S PAG #### [address] [address] Eosinophils #/vol (Bld) 0.15 10*3/uL Normal 0.00-0.44 [facility] Comment on above: Performed By: #### S PAG #### [address] [address] Eosinophils/100 WBC (Bld) 2 % Normal 1-4 [facility] Comment on above: Performed By: #### S PAG #### [address] [address] Erythrocyte distribution width Ratio (RBC) 14.4 % Normal 11.8-14.4 [facility] Comment on above: Performed By: #### S PAG #### [address] [address] Hematocrit Volume Fraction (Bld) 33.2 % Low 36.3-47.1 [facility] Comment on above: Performed By: #### S PAG #### [address] [address] Hemoglobin mass conc (Bld) 10.4 g/dL Low 11.9-15.1 [facility] Comment on above: Performed By: #### S PAG #### [address] [address] Immature granulocytes #/vol (Bld) 3 % High 0 [facility] Comment on above: Performed By: #### S PAG #### [facility] [address] [place] [address] Lymphocytes #/vol (Bld) 2.22 10*3/uL Normal 1.10-3.70 [facility] Comment on above: Performed By: #### S PAG #### [address] [address] Lymphocytes/100 WBC (Bld) 29 % Normal 24-43 [facility] Comment on above: Performed By: #### S PAG #### [address] [address] MCH Entitic mass (RBC) 27.7 pg Normal 25.2-33.5 [facility] Comment on above: Performed By: #### S PAG #### [address] [address] MCHC mass conc (RBC) 31.3 g/dL Normal 28.4-34.8 [facility] Comment on above: Performed By: #### S PAG #### [address] [address] MCV Entitic volume (RBC) 88.3 fL Normal 82.6-102.9 [facility] Comment on above: Performed By: #### S PAG #### [address] [address] Monocytes #/vol (Bld) 0.63 10*3/uL Normal 0.10-1.20 [facility] Comment on above: Performed By: #### S PAG #### [address] [address] Monocytes/100 WBC (Bld) 8 % Normal 3-12 [facility] Comment on above: Performed By: #### S PAG #### [address] [address] Neutrophil (Seg) 57 % Normal 36-65 [facility] Comment on above: Performed By: #### S PAG #### [address] [address] NRBC Automated 0.0 per 100 WBC Normal 0.0 [facility] Comment on above: Performed By: #### S PAG #### [address] [address] Platelets #/vol (Bld) See Reflexed IPF Result Normal 138-453 [facility] Comment on above: Performed By: #### S PAG #### [address] [address] RBC #/vol (Bld) 3.76 10*6/uL Low 3.95-5.11 [facility] Comment on above: Performed By: #### S PAG #### [address] [address] WBC #/vol (Bld) 7.7 10*3/uL Normal 3.5-11.3 [facility] Comment on above: Performed By: #### S PAG #### [address] [address] Auto Diff Performed NOT REPORTED Normal [facility] Comment on above: Performed By: #### S PAG #### [address] [address] Platelet mean volume Entitic volume (Bld) NOT REPORTED Normal 8.1-13.5 [facility] Comment on above: Performed By: #### S PAG #### [address] [address] Platelets #/vol (Bld) NOT REPORTED Normal [facility] Comment on above: Performed By: #### S PAG #### [address] [address] RBC morphology finding Nom (Bld) NOT REPORTED Normal [facility] Comment on above: Performed By: #### S PAG #### [address] [address] WBC Morphology NOT REPORTED Normal [facility] Comment on above: Performed By: #### S PAG #### [address] [address] Cult,Bloodon 08-23-2018 Cult,Blood Specimen Description .BLOOD Special Requests L AC 6ML Culture NO GROWTH 6 DAYS Report Status FINAL 08/23/2018 Normal [facility] Comment on above: Performed By: #### S PAG #### [address] [address] Cult,Blood Specimen Description .BLOOD Special Requests L FOREARM 6ML Culture NO GROWTH 6 DAYS Report Status FINAL 08/23/2018 Normal [facility] Comment on above: Performed By: #### S PAG #### [address] [address] PLT, Immature Fract.on 08-23 Platelet, Fluoresc. 113 k/uL Low 138-453 [facility] Comment on above: Performed By: #### S PAG #### [address] [address] PLT, Immature Fract. 3.7 % Normal 1.1-10.3 [facility] Comment on above: Performed By: #### S PAG #### [address] [address] CBC with Diffon 08-22-2018 Abs. Basophil 0.00 k/uL Normal 0.0-0.2 [facility] Comment on above: Performed By: #### U LAG #### [address] [address] Abs.Imm.Granulocyte 0.30 k/uL Normal 0.00-0.30 [facility] Comment on above: Performed By: #### U LAG #### [address] [address] Abs.Neutrophil (Seg) 4.87 k/uL Normal 1.8-7.7 [facility] Comment on above: Performed By: #### U LAG #### [address] [address] Basophils/100 WBC (Bld) 0 % Normal 0-2 [facility] Comment on above: Performed By: #### U LAG #### [address] [address] Eosinophils #/vol (Bld) 0.00 10*3/uL Normal 0.0-0.4 [facility] Comment on above: Performed By: #### U LAG #### [address] [address] Eosinophils/100 WBC (Bld) 0 % Low 1-4 [facility] Comment on above: Performed By: #### U LAG #### [address] [address] Immature granulocytes #/vol (Bld) 4 % High 0 [facility] Comment on above: Performed By: #### U LAG #### [address] [address] Lymphocytes #/vol (Bld) 1.88 10*3/uL Normal 1.0-4.8 [facility] Comment on above: Performed By: #### U LAG #### [address] [address] Lymphocytes/100 WBC (Bld) 25 % Normal 24-44 [facility] Comment on above: Performed By: #### U LAG #### [address] [address] Monocytes #/vol (Bld) 0.45 10*3/uL Normal 0.1-0.8 [facility] Comment on above: Performed By: #### U LAG #### [address] [address] Monocytes/100 WBC (Bld) 6 % Normal 1-7 [facility] Comment on above: Performed By: #### U LAG #### [address] [place] [address] Morphology Interp Rehan (Bld) ANISOCYTOSIS PRESENT Normal [facility] Comment on above: Performed By: #### U LAG #### [address] [address] Neutrophil (Seg) 65 % Normal 36-66 [facility] Comment on above: Performed By: #### U LAG #### [address] [address] Erythrocyte distribution width Ratio (RBC) 14.5 % High 11.8-14.4 [facility] Comment on above: Performed By: #### U LAG #### [address] [address] Hematocrit Volume Fraction (Bld) 38.1 % Normal 36.3-47.1 [facility] Comment on above: Performed By: #### U LAG #### [address] [address] Hemoglobin mass conc (Bld) 11.5 g/dL Low 11.9-15.1 [facility] Comment on above: Performed By: #### U LAG #### [address] [address] MCH Entitic mass (RBC) 28.3 pg Normal 25.2-33.5 [facility] Comment on above: Performed By: #### U LAG #### [address] [address] MCHC mass conc (RBC) 30.2 g/dL Normal 28.4-34.8 [facility] Comment on above: Performed By: #### U LAG #### [address] [address] MCV Entitic volume (RBC) 93.6 fL Normal 82.6-102.9 [facility] Comment on above: Performed By: #### U LAG #### [address] [address] NRBC Automated 0.0 per 100 WBC Normal 0.0 [facility] Comment on above: Performed By: #### U LAG #### [address] [address] Platelet mean volume Entitic volume (Bld) 10.7 fL Normal 8.1-13.5 [facility] Comment on above: Performed By: #### U LAG #### [address] [address] Platelets #/vol (Bld) 265 10*3/uL Normal 138-453 [facility] Comment on above: Performed By: #### U LAG #### [address] [address] RBC #/vol (Bld) 4.07 10*6/uL Normal 3.95-5.11 [facility] Comment on above: Performed By: #### U LAG #### [address] [address] WBC #/vol (Bld) 7.5 10*3/uL Normal 3.5-11.3 [facility] Comment on above: Performed By: #### U LAG #### [address] [address] Auto Diff Performed NOT REPORTED Normal [facility] Comment on above: Performed By: #### U LAG #### [address] [address] Platelets #/vol (Bld) NOT REPORTED Normal [facility] Comment on above: Performed By: #### U LAG #### [address] [address] RBC morphology finding Nom (Bld) NOT REPORTED Normal [facility] Comment on above: Performed By: #### U LAG #### [address] [address] WBC Morphology NOT REPORTED Normal [facility] Comment on above: Performed By: #### U LAG #### [address] [address] Comp Metabolic Pr/rfx MGon 1 10-22-2017 Albumin mass conc 3.2 g/dL Low 3.5-5.2 [facility] Comment on above: Performed By: #### U LAG #### [address] [address] Albumin/Globulin mass ratio 0.8 {ratio} Low 1.0-2.5 [facility] Comment on above: Performed By: #### U LAG #### [address] [address] Alkaline Phos 90 U/L Normal 35-104 [facility] Comment on above: Performed By: #### U LAG #### [address] [address] ALT enzyme act/vol 18 U/L Normal 5-33 [facility] Comment on above: Performed By: #### U LAG #### [facility] [address] [place] [address] 31156 AST enzyme act/vol 16 U/L Normal <32 [facility] Comment on above: Performed By: #### U LAG #### [facility] [address] [place] [address] 68371 Protein mass conc 7.0 g/dL Normal 6.4-8.3 [facility] Comment on above: Performed By: #### U LAG #### [facility] [address] [place] [address] 28309 (cont.) Normal [facility] Comment on above: Result Comment: Aver age GFR for 30-39 years old: 107 mL/min/1.73sq m Chronic Kidney Disease: <60 mL/min/1.73sq m Kidney failure: <15 mL/min/1.73sq m eGFR calculated using average adult body mass. Additional eGFR calculator available at: http://www.[employer]/multiple_crcl_2012.htm Performed By: #### U LAG #### [employer] [address] [place] [address] 16679 Anion gap molar conc 15 mmol/L Normal 9-17 [facility] Comment on above: Performed By: #### U LAG #### [employer] [address] [place] [address] 26613 Bilirubin Ql (U) 0.34 mg/dL Normal 0.3-1.2 [facility] Comment on above: Performed By: #### U LAG #### [employer] [address] [place] [address] 82270 Calcium mass conc 9.7 mg/dL Normal 8.6-10.4 [facility] Comment on above: Performed By: #### U LAG #### [employer] [address] [place] [address] 03822 Chloride molar conc 100 mmol/L Normal 98-107 [facility] Comment on above: Performed By: #### U LAG #### [employer] [address] [place] [address] 94660 CO2 molar conc 24 mmol/L Normal 20-31 [facility] Comment on above: Performed By: #### U LAG #### [employer] [address] [place] [address] 59427 Creatinine mass conc 1.02 mg/dL High 0.50-0.90 [facility] Comment on above: Performed By: #### U LAG #### [employer] [address] [place] [address] 44370 GFR, Amer >60 Normal >60 [facility] Comment on above: Performed By: #### U LAG #### [facility] [address] [place] [address] 67646 GFR,non Amer >60 Normal >60 [facility] Comment on above: Performed By: #### U LAG #### [facility] [address] [place] [address] 13506 Glucose mass conc 101 mg/dL High 70-99 [facility] Comment on above: Performed By: #### U LAG #### [facility] [address] [place] [address] 51335 Potassium molar conc 4.5 mmol/L Normal 3.7-5.3 [facility] Comment on above: Performed By: #### U LAG #### [facility] [address] [place] [address] 94420 Sodium molar conc 139 mmol/L Normal 135-144 [facility] Comment on above: Performed By: #### U LAG #### [facility] [address] [place] [address] 15259 Urea nitrogen mass conc 19 mg/dL Normal 6-20 [facility] Comment on above: Performed By: #### U LAG #### [facility] [address] [place] [address]607 BUN/CRE Ratio NOT REPORTED Normal 9-20 [facility] Comment on above: Performed By: #### U LAG #### [facility] [address] [place] [address] 91066 Staging: NOT REPORTED Normal [facility] Comment on above: Performed By: #### U LAG #### [facility] [address] [place] [address] 22033 Magnesiumon 11-18-2018 Magnesium mass conc 2.4 mg/dL Normal 1.6-2.6 [facility] Comment on above: Performed By: #### U LAG #### [facility] [address] [place] [address] 89573 Vancomycin Troughon 08-22-20 18 Vancomycin Trough 20.2 ug/mL Critically high 10.0-20.0 [facility] Comment on above: Result Comment: High er trough serum vancomycin concentrations of 15-20 ug/mL are recommended for complicated infections such as bacteremia, endocarditis, osteomyelitis, meningitis, and hospital acquired pneumonia. ADDED ON Performed By: #### U LAG #### [facility] [address] [place] [address] 10713 Date last dose, NOT REPORTED Normal [facility] Comment on above: Performed By: #### U LAG #### [facility] [address] [place] [address] 29523 Dose amount, NOT REPORTED Normal [facility] Comment on above: Performed By: #### U LAG #### [facility] [address] [place] [address] 01774 Time last dose, NOT REPORTED Normal [facility] Comment on above: Performed By: #### U LAG #### [facility] [address] [place] [address] 80084 CBC with Diffon 08-21-2018 Abs. Basophil 0.08 k/uL Normal 0.00-0.20 [facility] Comment on above: Performed By: #### U LAG #### [facility] [address] [place] [address] 63057 Abs.Imm.Granulocyte 0.50 k/uL High 0.00-0.30 [facility] Comment on above: Performed By: #### U LAG #### [address] [address] Abs.Neutrophil (Seg) 4.73 k/uL Normal 1.50-8.10 [facility] Comment on above: Performed By: #### U LAG #### [address] [address] Basophils/100 WBC (Bld) 1 % Normal 0-2 [facility] Comment on above: Performed By: #### U LAG #### [address] [address] Eosinophils #/vol (Bld) 0.17 10*3/uL Normal 0.00-0.44 [facility] Comment on above: Performed By: #### U LAG #### [address] [address] Eosinophils/100 WBC (Bld) 2 % Normal 1-4 [facility] Comment on above: Performed By: #### U LAG #### [address] [address] Immature granulocytes #/vol (Bld) 6 % High 0 [facility] Comment on above: Performed By: #### U LAG #### [address] [address] Lymphocytes #/vol (Bld) 2.24 10*3/uL Normal 1.10-3.70 [facility] Comment on above: Performed By: #### U LAG #### [address] [address] Lymphocytes/100 WBC (Bld) 27 % Normal 24-43 [facility] Comment on above: Performed By: #### U LAG #### [address] [address] Monocytes #/vol (Bld) 0.58 10*3/uL Normal 0.10-1.20 [facility] Comment on above: Performed By: #### U LAG #### [facility] [address] [place] [address] Monocytes/100 WBC (Bld) 7 % Normal 3-12 [facility] Comment on above: Performed By: #### U LAG #### [address] [address] Morphology Interp Rehan (Bld) ANISOCYTOSIS PRESENT Normal [facility] Comment on above: Performed By: #### U LAG #### [facility] [address] [place] [address]178 Neutrophil (Seg) 57 % Normal 36-65 [facility] Comment on above: Performed By: #### U LAG #### [address] [address] Erythrocyte distribution width Ratio (RBC) 14.6 % High 11.8-14.4 [facility] Comment on above: Performed By: #### U LAG #### [address] [address] Hematocrit Volume Fraction (Bld) 38.5 % Normal 36.3-47.1 [facility] Comment on above: Performed By: #### U LAG #### [address] [address] Hemoglobin mass conc (Bld) 11.5 g/dL Low 11.9-15.1 [facility] Comment on above: Performed By: #### U LAG #### [address] [address] MCH Entitic mass (RBC) 28.2 pg Normal 25.2-33.5 [facility] Comment on above: Performed By: #### U LAG #### [address] [address] MCHC mass conc (RBC) 29.9 g/dL Normal 28.4-34.8 [facility] Comment on above: Performed By: #### U LAG #### [address] [address] MCV Entitic volume (RBC) 94.4 fL Normal 82.6-102.9 [facility] Comment on above: Performed By: #### U LAG #### [address] [address] NRBC Automated 0.0 per 100 WBC Normal 0.0 [facility] Comment on above: Performed By: #### U LAG #### [address] [address] Platelet mean volume Entitic volume (Bld) 10.5 fL Normal 8.1-13.5 [facility] Comment on above: Performed By: #### U LAG #### [address] [address] Platelets #/vol (Bld) 264 10*3/uL Normal 138-453 [facility] Comment on above: Performed By: #### U LAG #### [address] [address] RBC #/vol (Bld) 4.08 10*6/uL Normal 3.95-5.11 [facility] Comment on above: Performed By: #### U LAG #### [address] [address] WBC #/vol (Bld) 8.3 10*3/uL Normal 3.5-11.3 [facility] Comment on above: Performed By: #### U LAG #### [address] [address] Auto Diff Performed NOT REPORTED Normal [facility] Comment on above: Performed By: #### U LAG #### [address] [address] Platelets #/vol (Bld) NOT REPORTED Normal [facility] Comment on above: Performed By: #### U LAG #### [facility] [address] [place] [address] 57041 RBC morphology finding Nom (Bld) NOT REPORTED Normal [facility] Comment on above: Performed By: #### U LAG #### [facility] [address] [place] [address] WBC Morphology NOT REPORTED Normal [facility] Comment on above: Performed By: #### U LAG #### [facility] [address] [place] [address] Comp Metabolic Pr/rfx MGon 1 10-21-2017 (cont.) Normal [facility] Comment on above: Result Comment: Aver age GFR for 30-39 years old: 107 mL/min/1.73sq m Chronic Kidney Disease: <60 mL/min/1.73sq m Kidney failure: <15 mL/min/1.73sq m eGFR calculated using average adult body mass. Additional eGFR calculator available at: http://www.[employer] s[employer]/multiple_crcl_2012.htm Performed By: #### U LAG #### [facility] [address] [place] [address]34 Albumin mass conc 2.9 g/dL Low 3.5-5.2 [facility] Comment on above: Performed By: #### U LAG #### [facility] [address] [place] [address] 9[address]39 Albumin/Globulin mass ratio 0.7 {ratio} Low 1.0-2.5 [facility] Comment on above: Performed By: #### U LAG #### [facility] [address] [place] [address] Alkaline Phos 98 U/L Normal 35-104 [facility] Comment on above: Performed By: #### U LAG #### [facility] [place] [address] ALT enzyme act/vol 19 U/L Normal 5-33 [facility] Comment on above: Performed By: #### U LAG #### [facility] [address] [place] [address] 97341 Anion gap molar conc 14 mmol/L Normal 9-17 [facility] Comment on above: Performed By: #### U LAG #### [facility] [address] [place] [address] 35187 AST enzyme act/vol 21 U/L Normal <32 [facility] Comment on above: Performed By: #### U LAG #### [facility] [address] [place] [address] Bilirubin Ql (U) 0.32 mg/dL Normal 0.3-1.2 [facility] Comment on above: Performed By: #### U LAG #### [facility] [address] [place] [address] Calcium mass conc 9.1 mg/dL Normal 8.6-10.4 [facility] Comment on above: Performed By: #### U LAG #### [employer] [address] [place] [address]12 Chloride molar conc 102 mmol/L Normal 98-107 [facility] Comment on above: Performed By: #### U LAG #### [employer] [address] [place] [address] 97428 CO2 molar conc 23 mmol/L Normal 20-31 [facility] Comment on above: Performed By: #### U LAG #### [employer] [address] [place] [address]999 Creatinine mass conc 0.90 mg/dL Normal 0.50-0.90 [facility] Comment on above: Performed By: #### U LAG #### [employer] [facility] [place] [address] GFR, Amer >60 Normal >60 [facility] Comment on above: Performed By: #### U LAG #### [facility] [address] [place] [address] 34572 GFR,non Amer >60 Normal >60 [facility] Comment on above: Performed By: #### U LAG #### [facility] [address] [place] [address] 21014 Glucose mass conc 108 mg/dL High 70-99 [facility] Comment on above: Performed By: #### U LAG #### [facility] [address] [place] [address] 63992 Potassium molar conc 4.6 mmol/L Normal 3.7-5.3 [facility] Comment on above: Performed By: #### U LAG #### [facility] [address] [place] [address] 79247 Protein mass conc 6.9 g/dL Normal 6.4-8.3 [facility] Comment on above: Performed By: #### U LAG #### [facility] [address] [place] [address] 14550 Sodium molar conc 139 mmol/L Normal 135-144 [facility] Comment on above: Performed By: #### U LAG #### [facility] [address] [place] [address] 96472 Urea nitrogen mass conc 17 mg/dL Normal 6-20 [facility] Comment on above: Performed By: #### U LAG #### [facility] [address] [place] [address] 63622 BUN/CRE Ratio NOT REPORTED Normal 9-20 [facility] Comment on above: Performed By: #### U LAG #### [facility] [address] [place] [address]342 Staging: NOT REPORTED Normal [facility] Comment on above: Performed By: #### U LAG #### [employer] [address] [place] [address] Cult,Bloodon 08-21-2018 Cult,Blood Specimen Description .BLOOD Special Requests L AC 20ML Culture POSITIVE Blood Culture CALLED TO MIS Medina [phone] DIRECT GRAM STAIN FROM BOTTLE: GRAM POSITIVE COCCI IN CLUSTERS METHICILLIN RESISTANT STAPHYLOCOCCUS AUREUS For susceptibility, refer to previous culture. Report Status FINAL 08/21/2018 Normal [facility] Comment on above: Performed By: #### U LAG #### [employer] [address] [place] [address] MRI FOOT LEFT W WO CONTRASTo n [...] Murali Goff MD 08/21/18 Final result Normal [facility] Magnesiumon 08-21-2018 Magnesium mass conc 2.4 mg/dL Normal 1.6-2.6 [facility] Comment on above: Performed By: #### U LAG #### [facility] [place] [address] Procalcitoninon 08-21-2018 Protein mass conc 0.27 ng/mL High <0.09 [facility] Comment on above: Result Comment: Suspected [...] entered into the Change in Procalcitonin Calculator (www.bdedfw-ukr-tiafkzyswb.com) to determine the patient's Mortality Risk Prognosis Performed By: #### U LAG #### [address] [address] C-Reactive Proteinon 018 CRP mass conc 50.4 mg/L High 0.0-5.0 [facility] Comment on above: Performed By: #### L ACDS, TROPI, PRCAL, MYCM #### [place] [address] CBC with Diffon 08-20-2018 Abs. Basophil 0.08 k/uL Normal 0.0-0.2 [facility] Comment on above: Performed By: #### L ACDS, TROPI, PRCAL, MYCM #### [address] [address] Abs.Imm.Granulocyte 0.42 k/uL High 0.00-0.30 [facility] Comment on above: Performed By: #### L ACDS, TROPI, PRCAL, MYCM #### [address] [address] Abs.Neutrophil (Seg) 4.57 k/uL Normal 1.8-7.7 [facility] Comment on above: Performed By: #### L ACDS, TROPI, PRCAL, MYCM #### [address] [address] Basophils/100 WBC (Bld) 1 % Normal 0-2 [facility] Comment on above: Performed By: #### L ACDS, TROPI, PRCAL, MYCM #### [facility] [address] [place] [address] 43774 Eosinophils #/vol (Bld) 0.25 10*3/uL Normal 0.0-0.4 [facility] Comment on above: Performed By: #### L ACDS, TROPI, PRCAL, MYCM #### [address] [address] Eosinophils/100 WBC (Bld) 3 % Normal 1-4 [facility] Comment on above: Performed By: #### L ACDS, TROPI, PRCAL, MYCM #### [address] [address] Immature granulocytes #/vol (Bld) 5 % High 0 [facility] Comment on above: Performed By: #### L ACDS, TROPI, PRCAL, MYCM #### [address] [address] Lymphocytes #/vol (Bld) 2.32 10*3/uL Normal 1.0-4.8 [facility] Comment on above: Performed By: #### L ACDS, TROPI, PRCAL, MYCM #### [address] [address] Lymphocytes/100 WBC (Bld) 28 % Normal 24-44 [facility] Comment on above: Performed By: #### L ACDS, TROPI, PRCAL, MYCM #### [address] [address] Monocytes #/vol (Bld) 0.66 10*3/uL Normal 0.1-0.8 [facility] Comment on above: Performed By: #### L ACDS, TROPI, PRCAL, MYCM #### [address] [address] Monocytes/100 WBC (Bld) 8 % High 1-7 [facility] Comment on above: Performed By: #### L ACDS, TROPI, PRCAL, MYCM #### [address] [address] Morphology Interp Rehan (Bld) ANISOCYTOSIS PRESENT Normal [facility] Comment on above: Performed By: #### L ACDS, TROPI, PRCAL, MYCM #### [address] [address] Neutrophil (Seg) 55 % Normal 36-66 [facility] Comment on above: Performed By: #### L ACDS, TROPI, PRCAL, MYCM #### [address] [address] Erythrocyte distribution width Ratio (RBC) 14.6 % High 11.8-14.4 [facility] Comment on above: Performed By: #### L ACDS, TROPI, PRCAL, MYCM #### [facility] [address] [place] [address] 11398 Hematocrit Volume Fraction (Bld) 33.5 % Low 36.3-47.1 [facility] Comment on above: Performed By: #### L ACDS, TROPI, PRCAL, MYCM #### [address] [address] Hemoglobin mass conc (Bld) 10.2 g/dL Low 11.9-15.1 [facility] Comment on above: Performed By: #### L ACDS, TROPI, PRCAL, MYCM #### [address] [address] MCH Entitic mass (RBC) 27.9 pg Normal 25.2-33.5 [facility] Comment on above: Performed By: #### L ACDS, TROPI, PRCAL, MYCM #### [address] [address] MCHC mass conc (RBC) 30.4 g/dL Normal 28.4-34.8 [facility] Comment on above: Performed By: #### L ACDS, TROPI, PRCAL, MYCM #### [facility] [address] [place] [address] 01400 MCV Entitic volume (RBC) 91.5 fL Normal 82.6-102.9 [facility] Comment on above: Performed By: #### L ACDS, TROPI, PRCAL, MYCM #### [facility] [address] [place] [address] 39394 NRBC Automated 0.0 per 100 WBC Normal 0.0 [facility] Comment on above: Performed By: #### L ACDS, TROPI, PRCAL, MYCM #### [facility] [address] [place] [address] 35272 Platelet mean volume Entitic volume (Bld) 11.0 fL Normal 8.1-13.5 [facility] Comment on above: Performed By: #### L ACDS, TROPI, PRCAL, MYCM #### [address] [address] Platelets #/vol (Bld) 211 10*3/uL Normal 138-453 [facility] Comment on above: Performed By: #### L ACDS, TROPI, PRCAL, MYCM #### [address] [address] RBC #/vol (Bld) 3.66 10*6/uL Low 3.95-5.11 [facility] Comment on above: Performed By: #### L ACDS, TROPI, PRCAL, MYCM #### [facility] [address] [place] [address] 16967 WBC #/vol (Bld) 8.3 10*3/uL Normal 3.5-11.3 [facility] Comment on above: Performed By: #### L ACDS, TROPI, PRCAL, MYCM #### [facility] [address] [place] [address] 20940 Auto Diff Performed NOT REPORTED Normal [facility] Comment on above: Performed By: #### L ACDS, TROPI, PRCAL, MYCM #### [facility] [address] [place] [address] 02440 Platelets #/vol (Bld) NOT REPORTED Normal [facility] Comment on above: Performed By: #### L ACDS, TROPI, PRCAL, MYCM #### [facility] [address] [place] [address] 15300 RBC morphology finding Nom (Bld) NOT REPORTED Normal [facility] Comment on above: Performed By: #### L ACDS, TROPI, PRCAL, MYCM #### [facility] [address] [place] [address] 15716 WBC Morphology NOT REPORTED Normal [facility] Comment on above: Performed By: #### L ACDS, TROPI, PRCAL, MYCM #### [address] [address] Comp Metabolic Pr/rfx MGon 1 10-20-2017 (cont.) Normal [facility] Comment on above: Result Comment: Aver age GFR for 30-39 years old: 107 mL/min/1.73sq m Chronic Kidney Disease: <60 mL/min/1.73sq m Kidney failure: <15 mL/min/1.73sq m eGFR calculated using average adult body mass. Additional eGFR calculator available at: http://www.[employer] s[employer].com/multiple_crcl_2012.htm Performed By: #### L ACDS, TROPI, PRCAL, MYCM #### [facility] [address] [place] [address] 97391 Albumin mass conc 3.1 g/dL Low 3.5-5.2 [facility] Comment on above: Performed By: #### L ACDS, TROPI, PRCAL, MYCM #### [facility] [address] [place] [address] 17631 Albumin/Globulin mass ratio 0.9 {ratio} Low 1.0-2.5 [facility] Comment on above: Performed By: #### L ACDS, TROPI, PRCAL, MYCM #### [facility] [address] [place] [address] 63361 Alkaline Phos 83 U/L Normal 35-104 [facility] Comment on above: Performed By: #### L ACDS, TROPI, PRCAL, MYCM #### [facility] [address] [place] [address] 19314 ALT enzyme act/vol 17 U/L Normal 5-33 [facility] Comment on above: Performed By: #### L ACDS, TROPI, PRCAL, MYCM #### [facility] [address] [place] [address] 35631 Anion gap molar conc 11 mmol/L Normal 9-17 [facility] Comment on above: Performed By: #### L ACDS, TROPI, PRCAL, MYCM #### [facility] [address] [place] [address] 83140 AST enzyme act/vol 18 U/L Normal <32 [facility] Comment on above: Performed By: #### L ACDS, TROPI, PRCAL, MYCM #### [facility] [address] [place] [address] 65988 Bilirubin Ql (U) 0.29 mg/dL Low 0.3-1.2 [facility] Comment on above: Performed By: #### L ACDS, TROPI, PRCAL, MYCM #### [facility] [address] [place] [address] 95988 Calcium mass conc 9.0 mg/dL Normal 8.6-10.4 [facility] Comment on above: Performed By: #### L ACDS, TROPI, PRCAL, MYCM #### [facility] [address] [place] [address] 67474 Chloride molar conc 101 mmol/L Normal 98-107 [facility] Comment on above: Performed By: #### L ACDS, TROPI, PRCAL, MYCM #### [facility] [address] [place] [address] 85190 CO2 molar conc 27 mmol/L Normal 20-31 [facility] Comment on above: Performed By: #### L ACDS, TROPI, PRCAL, MYCM #### [facility] [address] [place] [address] 23284 Creatinine mass conc 0.97 mg/dL High 0.50-0.90 [facility] Comment on above: Performed By: #### L ACDS, TROPI, PRCAL, MYCM #### [facility] [address] [place] [address] 13649 GFR, Amer >60 Normal >60 [facility] Comment on above: Performed By: #### L ACDS, TROPI, PRCAL, MYCM #### [facility] [address] [place] [address] 72502 GFR,non Amer >60 Normal >60 [facility] Comment on above: Performed By: #### L ACDS, TROPI, PRCAL, MYCM #### [facility] [address] [place] [address] 36745 Glucose mass conc 105 mg/dL High 70-99 [facility] Comment on above: Performed By: #### L ACDS, TROPI, PRCAL, MYCM #### [facility] [address] [place] [address] 08365 Potassium molar conc 4.4 mmol/L Normal 3.7-5.3 [facility] Comment on above: Performed By: #### L ACDS, TROPI, PRCAL, MYCM #### [facility] [address] [place] [address] 43225 Protein mass conc 6.6 g/dL Normal 6.4-8.3 [facility] Comment on above: Performed By: #### L ACDS, TROPI, PRCAL, MYCM #### [facility] [address] [place] [address] 04187 Sodium molar conc 139 mmol/L Normal 135-144 [facility] Comment on above: Performed By: #### L ACDS, TROPI, PRCAL, MYCM #### [employer] [address] [place] [address] 01472 Urea nitrogen mass conc 15 mg/dL Normal -20 [facility] Comment on above: Performed By: #### L ACDS, TROPI, PRCAL, MYCM #### [facility] [address] [place] [address] 68045 BUN/CRE Ratio NOT REPORTED Normal 06-24 [facility] Comment on above: Performed By: #### L ACDS, TROPI, PRCAL, MYCM #### [employer] [address] [place] [address] 18506 Staging: NOT REPORTED Normal [facility] Comment on above: Performed By: #### L ACDS, TROPI, PRCAL, MYCM #### [employer] [address] [place] [address] 18144 Magnesiumon 08-20-2018 Magnesium mass conc 2.2 mg/dL Normal 1.6-2.6 [facility] Comment on above: Performed By: #### L ACDS, TROPI, PRCAL, MYCM #### [employer] [address] [place] [address] 00227 Sedimentation Rateon 018 Sedimentation Rate 100 mm High 0-20 [facility] Comment on above: Performed By: #### L ACDS, TROPI, PRCAL, MYCM #### [facility] [address] [place] [address] 08660 XR FOOT LEFT (MIN 3 VIEWS)on 08-20-2018 [...] Andrey Angelo MD 08/20/18 Final result Normal [facility] CBC with Diffon 08-19-2018 Abs. Basophil 0.00 k/uL Normal 0.0-0.2 [facility] Comment on above: Performed By: #### L ACDS, TROPI, PRCAL, MYCM #### [place] [address] Abs.Imm.Granulocyte 0.42 k/uL High 0.00-0.30 [facility] Comment on above: Performed By: #### L ACDS, TROPI, PRCAL, MYCM #### [place] [address] Abs.Neutrophil (Seg) 2.70 k/uL Normal 1.8-7.7 [facility] Comment on above: Performed By: #### L ACDS, TROPI, PRCAL, MYCM #### [facility] [address] [place] [address] Basophils/100 WBC (Bld) 0 % Normal 0-2 [facility] Comment on above: Performed By: #### L ACDS, TROPI, PRCAL, MYCM #### [facility] [address] [place] [address] Eosinophils #/vol (Bld) 0.30 10*3/uL Normal 0.0-0.4 [facility] Comment on above: Performed By: #### L ACDS, TROPI, PRCAL, MYCM #### [address] [address] Eosinophils/100 WBC (Bld) 5 % High 1-4 [facility] Comment on above: Performed By: #### L ACDS, TROPI, PRCAL, MYCM #### [address] [address] Immature granulocytes #/vol (Bld) 7 % High 0 [facility] Comment on above: Performed By: #### L ACDS, TROPI, PRCAL, MYCM #### [address] [address] Lymphocytes #/vol (Bld) 2.22 10*3/uL Normal 1.0-4.8 [facility] Comment on above: Performed By: #### L ACDS, TROPI, PRCAL, MYCM #### [address] [address] Lymphocytes/100 WBC (Bld) 37 % Normal 24-44 [facility] Comment on above: Performed By: #### L ACDS, TROPI, PRCAL, MYCM #### [address] [address] Monocytes #/vol (Bld) 0.36 10*3/uL Normal 0.1-0.8 [facility] Comment on above: Performed By: #### L ACDS, TROPI, PRCAL, MYCM #### [address] [address] Monocytes/100 WBC (Bld) 6 % Normal 1-7 [facility] Comment on above: Performed By: #### L ACDS, TROPI, PRCAL, MYCM #### [address] [address] Morphology Interp Rehan (Bld) ANISOCYTOSIS PRESENT Normal [facility] Comment on above: Performed By: #### L ACDS, TROPI, PRCAL, MYCM #### [address] [address] Neutrophil (Seg) 45 % Normal 36-66 [facility] Comment on above: Performed By: #### L ACDS, TROPI, PRCAL, MYCM #### [address] [address] Erythrocyte distribution width Ratio (RBC) 14.6 % High 11.8-14.4 [facility] Comment on above: Performed By: #### L ACDS, TROPI, PRCAL, MYCM #### [address] [address] Hematocrit Volume Fraction (Bld) 34.4 % Low 36.3-47.1 [facility] Comment on above: Performed By: #### L ACDS, TROPI, PRCAL, MYCM #### [address] [address] Hemoglobin mass conc (Bld) 10.4 g/dL Low 11.9-15.1 [facility] Comment on above: Performed By: #### L ACDS, TROPI, PRCAL, MYCM #### [address] [address] MCH Entitic mass (RBC) 28.0 pg Normal 25.2-33.5 [facility] Comment on above: Performed By: #### L ACDS, TROPI, PRCAL, MYCM #### [address] 18561 MCHC mass conc (RBC) 30.2 g/dL Normal 28.4-34.8 [facility] Comment on above: Performed By: #### L ACDS, TROPI, PRCAL, MYCM #### [address] [address] MCV Entitic volume (RBC) 92.7 fL Normal 82.6-102.9 [facility] Comment on above: Performed By: #### L ACDS, TROPI, PRCAL, MYCM #### [address] [address]85[address] NRBC Automated 0.3 per 100 WBC High 0.0 [facility] Comment on above: Performed By: #### L ACDS, TROPI, PRCAL, MYCM #### [address] [address] Platelet mean volume Entitic volume (Bld) 10.5 fL Normal 8.1-13.5 [facility] Comment on above: Performed By: #### L ACDS, TROPI, PRCAL, MYCM #### [address] [address] Platelets #/vol (Bld) 168 10*3/uL Normal 138-453 [facility] Comment on above: Performed By: #### L ACDS, TROPI, PRCAL, MYCM #### [address] [address] RBC #/vol (Bld) 3.71 10*6/uL Low 3.95-5.11 [facility] Comment on above: Performed By: #### L ACDS, TROPI, PRCAL, MYCM #### [address] [address] WBC #/vol (Bld) 6.0 10*3/uL Normal 3.5-11.3 [facility] Comment on above: Performed By: #### L ACDS, TROPI, PRCAL, MYCM #### [address] [address] Auto Diff Performed NOT REPORTED Normal [facility] Comment on above: Performed By: #### L ACDS, TROPI, PRCAL, MYCM #### [facility] [address] [place] [address] 87405 Platelets #/vol (Bld) NOT REPORTED Normal [facility] Comment on above: Performed By: #### L ACDS, TROPI, PRCAL, MYCM #### [facility] [address] [place] [address] 52495 RBC morphology finding Nom (Bld) NOT REPORTED Normal [facility] Comment on above: Performed By: #### L ACDS, TROPI, PRCAL, MYCM #### [facility] [address] [place] [address] 26950 WBC Morphology NOT REPORTED Normal [facility] Comment on above: Performed By: #### L ACDS, TROPI, PRCAL, MYCM #### [address] [address] Comp Metabolic Pr/rfx MGon 1 10-19-2017 (cont.) Normal [facility] Comment on above: Result Comment: Aver age GFR for 30-39 years old: 107 mL/min/1.73sq m Chronic Kidney Disease: <60 mL/min/1.73sq m Kidney failure: <15 mL/min/1.73sq m eGFR calculated using average adult body mass. Additional eGFR calculator available at: http://www.[employer].com/multiple_crcl_2012.htm Performed By: #### L ACDS, TROPI, PRCAL, MYCM #### [facility] [address] [place] [address] 54407 Albumin mass conc 2.7 g/dL Low 3.5-5.2 [facility] Comment on above: Performed By: #### L ACDS, TROPI, PRCAL, MYCM #### [facility] [address] [place] [address] 16553 Albumin/Globulin mass ratio 0.8 {ratio} Low 1.0-2.5 [facility] Comment on above: Performed By: #### L ACDS, TROPI, PRCAL, MYCM #### [facility] [address] [place] [address] 96348 Alkaline Phos 78 U/L Normal 35-104 [facility] Comment on above: Performed By: #### L ACDS, TROPI, PRCAL, MYCM #### [facility] [address] [place] [address] 15671 ALT enzyme act/vol 16 U/L Normal 5-33 [facility] Comment on above: Performed By: #### L ACDS, TROPI, PRCAL, MYCM #### [facility] [address] [place] [address] 05144 Anion gap molar conc 10 mmol/L Normal 9-17 [facility] Comment on above: Performed By: #### L ACDS, TROPI, PRCAL, MYCM #### [facility] [address] [place] [address] 61080 AST enzyme act/vol 16 U/L Normal <32 [facility] Comment on above: Performed By: #### L ACDS, TROPI, PRCAL, MYCM #### [facility] [address] [place] [address] 98744 Bilirubin Ql (U) 0.21 mg/dL Low 0.3-1.2 [facility] Comment on above: Performed By: #### L ACDS, TROPI, PRCAL, MYCM #### [facility] [address] [place] [address] 53812 Calcium mass conc 8.5 mg/dL Low 8.6-10.4 [facility] Comment on above: Performed By: #### L ACDS, TROPI, PRCAL, MYCM #### [facility] [address] [place] [address] 86516 Chloride molar conc 103 mmol/L Normal 98-107 [facility] Comment on above: Performed By: #### L ACDS, TROPI, PRCAL, MYCM #### [address] [address]653 CO2 molar conc 24 mmol/L Normal 20-31 [facility] Comment on above: Performed By: #### L ACDS, TROPI, PRCAL, MYCM #### [facility] [address] [place] [address] 95488 Creatinine mass conc 0.88 mg/dL Normal 0.50-0.90 [facility] Comment on above: Performed By: #### L ACDS, TROPI, PRCAL, MYCM #### [facility] [address] [place] [address] 47939 GFR, Amer >60 Normal >60 [facility] Comment on above: Performed By: #### L ACDS, TROPI, PRCAL, MYCM #### [facility] [address] [place] [address] 22157 GFR,non Amer >60 Normal >60 [facility] Comment on above: Performed By: #### L ACDS, TROPI, PRCAL, MYCM #### [facility] [address] [place] [address] 25119 Glucose mass conc 104 mg/dL High 70-99 [facility] Comment on above: Performed By: #### L ACDS, TROPI, PRCAL, MYCM #### [facility] [address] [place] [address] 56766 Potassium molar conc 4.0 mmol/L Normal 3.7-5.3 [facility] Comment on above: Performed By: #### L ACDS, TROPI, PRCAL, MYCM #### [facility] [address] [place] [address] 85857 Protein mass conc 6.3 g/dL Low 6.4-8.3 [facility] Comment on above: Performed By: #### L ACDS, TROPI, PRCAL, MYCM #### [employer] [facility] [place] [address] Sodium molar conc 137 mmol/L Normal 135-144 [facility] Comment on above: Performed By: #### L ACDS, TROPI, PRCAL, MYCM #### [employer] [address] [place] [address] 94189 Urea nitrogen mass conc 16 mg/dL Normal -20 [facility] Comment on above: Performed By: #### L ACDS, TROPI, PRCAL, MYCM #### [facility] [address] [place] [address] 14396 BUN/CRE Ratio NOT REPORTED Normal - [facility] Comment on above: Performed By: #### L ACDS, TROPI, PRCAL, MYCM #### [facility] [address] [place] [address] 99527 Staging: NOT REPORTED Normal [facility] Comment on above: Performed By: #### L ACDS, TROPI, PRCAL, MYCM #### [facility] [address] [place] [address] 80381 Cult, Bloodon 08-19-2018 Cult, Blood Specimen Description [...] Trimethoprim/Sulfa <=10 SUSCEPTIBLE Vancomycin 1 SUSCEPTIBLE Normal [facility] Comment on above: Performed By: #### L ACDS, TROPI, PRCAL, MYCM #### [employer] [address] [place] [address] MRI CERVICAL SPINE W WO CONT JAVONTon [...] Bo Rodrigues MD 08/19/18 Final result Normal [facility] MRI LUMBAR SPINE W WO [...] Bo Rodrigues MD 08/19/18 Final result Normal [facility] MRI THORACIC SPINE W WO [...] Bo Rodrigues MD 08/19/18 Final result Normal [facility] Magnesiumon 08-19-2018 Magnesium mass conc 2.3 mg/dL Normal 1.6-2.6 [facility] Comment on above: Performed By: #### L ACDS, TROPI, PRCAL, MYCM #### [employer] [facility] [place] [address] Procalcitoninon 08-19-2018 Protein mass conc 0.57 ng/mL High <0.09 [facility] Comment on above: Result Comment: Suspected [...] entered into the Change in Procalcitonin Calculator ([email or web address]-hgx-[email or web address]) to determine the patient's Mortality Risk Prognosis Performed By: #### L ACDS, TROPI, PRCAL, MYCM #### [employer] [address] [place] [address] CBC with Diffon 08-18-2018 Abs. Basophil <0.03 Normal 0.00-0.20 [facility] Comment on above: Performed By: #### L ACDS, TROPI, PRCAL, MYCM #### [employer] [address] [place], [place] [id number] Abs.Imm.Granulocyte 0.28 k/uL Normal 0.00-0.30 [facility] Comment on above: Performed By: #### L ACDS, TROPI, PRCAL, MYCM #### [address] [address] Abs.Neutrophil (Seg) 3.23 k/uL Normal 1.50-8.10 [facility] Comment on above: Performed By: #### L ACDS, TROPI, PRCAL, MYCM #### [facility] [address] [place] [address] Basophils/100 WBC (Bld) 0 % Normal 0-2 [facility] Comment on above: Performed By: #### L ACDS, TROPI, PRCAL, MYCM #### [facility] [address] [place] [address] Eosinophils #/vol (Bld) 0.15 10*3/uL Normal 0.00-0.44 [facility] Comment on above: Performed By: #### L ACDS, TROPI, PRCAL, MYCM #### [facility] [address] [place] [address] 77103 Eosinophils/100 WBC (Bld) 3 % Normal 1-4 [facility] Comment on above: Performed By: #### L ACDS, TROPI, PRCAL, MYCM #### [facility] [address] [place] [address] 66129 Erythrocyte distribution width Ratio (RBC) 14.7 % High 11.8-14.4 [facility] Comment on above: Performed By: #### L ACDS, TROPI, PRCAL, MYCM #### [facility] [address] [place] [address] 43288 Hematocrit Volume Fraction (Bld) 32.7 % Low 36.3-47.1 [facility] Comment on above: Performed By: #### L ACDS, TROPI, PRCAL, MYCM #### [address] [address] Hemoglobin mass conc (Bld) 10.1 g/dL Low 11.9-15.1 [facility] Comment on above: Performed By: #### L ACDS, TROPI, PRCAL, MYCM #### [address] [address] Immature granulocytes #/vol (Bld) 5 % High 0 [facility] Comment on above: Performed By: #### L ACDS, TROPI, PRCAL, MYCM #### [address] [address] Lymphocytes #/vol (Bld) 1.58 10*3/uL Normal 1.10-3.70 [facility] Comment on above: Performed By: #### L ACDS, TROPI, PRCAL, MYCM #### [address] [address] Lymphocytes/100 WBC (Bld) 28 % Normal 24-43 [facility] Comment on above: Performed By: #### L ACDS, TROPI, PRCAL, MYCM #### [address] [address] MCH Entitic mass (RBC) 28.2 pg Normal 25.2-33.5 [facility] Comment on above: Performed By: #### L ACDS, TROPI, PRCAL, MYCM #### [address] [address] MCHC mass conc (RBC) 30.9 g/dL Normal 28.4-34.8 [facility] Comment on above: Performed By: #### L ACDS, TROPI, PRCAL, MYCM #### [address] [address] MCV Entitic volume (RBC) 91.3 fL Normal 82.6-102.9 [facility] Comment on above: Performed By: #### L ACDS, TROPI, PRCAL, MYCM #### [address] [address] Monocytes #/vol (Bld) 0.47 10*3/uL Normal 0.10-1.20 [facility] Comment on above: Performed By: #### L ACDS, TROPI, PRCAL, MYCM #### [address] [address] Monocytes/100 WBC (Bld) 8 % Normal 3-12 [facility] Comment on above: Performed By: #### L ACDS, TROPI, PRCAL, MYCM #### [address] [address] Neutrophil (Seg) 56 % Normal 36-65 [facility] Comment on above: Performed By: #### L ACDS, TROPI, PRCAL, MYCM #### [address] [address] NRBC Automated 0.0 per 100 WBC Normal 0.0 [facility] Comment on above: Performed By: #### L ACDS, TROPI, PRCAL, MYCM #### [address] [address] Platelet mean volume Entitic volume (Bld) 11.4 fL Normal 8.1-13.5 [facility] Comment on above: Performed By: #### L ACDS, TROPI, PRCAL, MYCM #### [address] [address] Platelets #/vol (Bld) 153 10*3/uL Normal 138-453 [facility] Comment on above: Performed By: #### L ACDS, TROPI, PRCAL, MYCM #### [address] [place] [address] RBC #/vol (Bld) 3.58 10*6/uL Low 3.95-5.11 [facility] Comment on above: Performed By: #### L ACDS, TROPI, PRCAL, MYCM #### [facility] [address] [place] [address] 22282 RBC morphology finding Nom (Bld) ANISOCYTOSIS PRESENT Normal [facility] Comment on above: Performed By: #### L ACDS, TROPI, PRCAL, MYCM #### [facility] [address] [place] [address] 74379 WBC #/vol (Bld) 5.7 10*3/uL Normal 3.5-11.3 [facility] Comment on above: Performed By: #### L ACDS, TROPI, PRCAL, MYCM #### [facility] [address] [place] [address] 38333 Auto Diff Performed NOT REPORTED Normal [facility] Comment on above: Performed By: #### L ACDS, TROPI, PRCAL, MYCM #### [address] [address] Platelets #/vol (Bld) NOT REPORTED Normal [facility] Comment on above: Performed By: #### L ACDS, TROPI, PRCAL, MYCM #### [facility] [address] [place] [address] 35503 WBC Morphology NOT REPORTED Normal [facility] Comment on above: Performed By: #### L ACDS, TROPI, PRCAL, MYCM #### [facility] [address] [place] [address] 33152 Comp Metabolic Pr/rfx MGon 1 10-18-2017 (cont.) Normal [facility] Comment on above: Result Comment: Aver age GFR for 30-39 years old: 107 mL/min/1.73sq m Chronic Kidney Disease: <60 mL/min/1.73sq m Kidney failure: <15 mL/min/1.73sq m eGFR calculated using average adult body mass. Additional eGFR calculator available at: http://www.[employer].Primary Data/multiple_crcl_2012.htm Performed By: #### L ACDS, TROPI, PRCAL, MYCM #### [facility] [address] [place] [address] 74022 Albumin mass conc 2.7 g/dL Low 3.5-5.2 [facility] Comment on above: Performed By: #### L ACDS, TROPI, PRCAL, MYCM #### [facility] [address] [place] [address] 29191 Albumin/Globulin mass ratio 0.8 {ratio} Low 1.0-2.5 [facility] Comment on above: Performed By: #### L ACDS, TROPI, PRCAL, MYCM #### [facility] [address] [place] [address] 84553 Alkaline Phos 82 U/L Normal 35-104 [facility] Comment on above: Performed By: #### L ACDS, TROPI, PRCAL, MYCM #### [facility] [address] [place] [address] 77970 ALT enzyme act/vol 19 U/L Normal 5-33 [facility] Comment on above: Performed By: #### L ACDS, TROPI, PRCAL, MYCM #### [facility] [address] [place] [address] 36834 Anion gap molar conc 8 mmol/L Low 9-17 [facility] Comment on above: Performed By: #### L ACDS, TROPI, PRCAL, MYCM #### [facility] [address] [place] [address] 25332 AST enzyme act/vol 17 U/L Normal <32 [facility] Comment on above: Performed By: #### L ACDS, TROPI, PRCAL, MYCM #### [facility] [address] [place] [address] 87447 Bilirubin Ql (U) 0.24 mg/dL Low 0.3-1.2 [facility] Comment on above: Performed By: #### L ACDS, TROPI, PRCAL, MYCM #### [facility] [address] [place] [address] 83456 Calcium mass conc 8.2 mg/dL Low 8.6-10.4 [facility] Comment on above: Performed By: #### L ACDS, TROPI, PRCAL, MYCM #### [facility] [address] [place] [address] 30669 Chloride molar conc 103 mmol/L Normal 98-107 [facility] Comment on above: Performed By: #### L ACDS, TROPI, PRCAL, MYCM #### [facility] [address] [place] [address] 18242 CO2 molar conc 25 mmol/L Normal 20-31 [facility] Comment on above: Performed By: #### L ACDS, TROPI, PRCAL, MYCM #### [facility] [address] [place] [address] 29839 Creatinine mass conc 0.94 mg/dL High 0.50-0.90 [facility] Comment on above: Performed By: #### L ACDS, TROPI, PRCAL, MYCM #### [facility] [address] [place] [address] 35364 GFR, Amer >60 Normal >60 [facility] Comment on above: Performed By: #### L ACDS, TROPI, PRCAL, MYCM #### [facility] [address] [place] [address] 31525 GFR,non Amer >60 Normal >60 [facility] Comment on above: Performed By: #### L ACDS, TROPI, PRCAL, MYCM #### [facility] [address] [place] [address] 31085 Glucose mass conc 107 mg/dL High 70-99 [facility] Comment on above: Performed By: #### L ACDS, TROPI, PRCAL, MYCM #### [facility] [address] [place] [address] 54014 Potassium molar conc 4.1 mmol/L Normal 3.7-5.3 [facility] Comment on above: Performed By: #### L ACDS, TROPI, PRCAL, MYCM #### [facility] [address] [place] [address] 79922 Protein mass conc 6.2 g/dL Low 6.4-8.3 [facility] Comment on above: Performed By: #### L ACDS, TROPI, PRCAL, MYCM #### [facility] [address] [place] [address] 54244 Sodium molar conc 136 mmol/L Normal 135-144 [facility] Comment on above: Performed By: #### L ACDS, TROPI, PRCAL, MYCM #### [facility] [address] [place] [address] 42618 Urea nitrogen mass conc 14 mg/dL Normal 6-20 [facility] Comment on above: Performed By: #### L ACDS, TROPI, PRCAL, MYCM #### [facility] [address] [place] [address] 01519 BUN/CRE Ratio NOT REPORTED Normal 9-20 [facility] Comment on above: Performed By: #### L ACDS, TROPI, PRCAL, MYCM #### [employer] [address] [place] [address] 17156 Staging: NOT REPORTED Normal [facility] Comment on above: Performed By: #### L ACDS, TROPI, PRCAL, MYCM #### [employer] [address] [place] [address] 32160 Magnesiumon 08-18-2018 Magnesium mass conc 2.3 mg/dL Normal 1.6-2.6 [facility] Comment on above: Performed By: #### L ACDS, TROPI, PRCAL, MYCM #### [employer] [address] [place] [address] 73763 Vancomycin Troughon 08-18-20 18 Vancomycin Trough 14.7 ug/mL Normal 10.0-20.0 [facility] Comment on above: Result Comment: High er trough serum vancomycin concentrations of 15-20 ug/mL are recommended for complicated infections such as bacteremia, endocarditis, osteomyelitis, meningitis, and hospital acquired pneumonia. Performed By: #### L ACDS, TROPI, PRCAL, MYCM #### [employer] [address] [place] [address] 21268 Date last dose, NOT REPORTED Normal [facility] Comment on above: Performed By: #### L ACDS, TROPI, PRCAL, MYCM #### [employer] [address] [place] [address] 42285 Dose amount, NOT REPORTED Normal [facility] Comment on above: Performed By: #### L ACDS, TROPI, PRCAL, MYCM #### [employer] [address] [place] [address] 51920 Time last dose, NOT REPORTED Normal [facility] Comment on above: Performed By: #### L ACDS, TROPI, PRCAL, MYCM #### [employer] [address] [place] [address] 75853 C-Reactive Proteinon 018 CRP mass conc 188.1 mg/L High 0.0-5.0 [facility] Comment on above: Performed By: #### L ACDS, TROPI, PRCAL, MYCM #### [address] [address] CBC with Diffon 08-17-2018 Abs. Basophil 0.00 k/uL Normal 0.0-0.2 [facility] Comment on above: Performed By: #### L ACDS, TROPI, PRCAL, MYCM #### [address] [address]84[address] Abs.Imm.Granulocyte 0.13 k/uL Normal 0.00-0.30 [facility] Comment on above: Performed By: #### L ACDS, TROPI, PRCAL, MYCM #### [address] [address] Abs.Neutrophil (Seg) 4.35 k/uL Normal 1.8-7.7 [facility] Comment on above: Performed By: #### L ACDS, TROPI, PRCAL, MYCM #### [address] [address] Basophils/100 WBC (Bld) 0 % Normal 0-2 [facility] Comment on above: Performed By: #### L ACDS, TROPI, PRCAL, MYCM #### [address] [address] Eosinophils #/vol (Bld) 0.06 10*3/uL Normal 0.0-0.4 [facility] Comment on above: Performed By: #### L ACDS, TROPI, PRCAL, MYCM #### [address] [address]489 Eosinophils/100 WBC (Bld) 1 % Normal 1-4 [facility] Comment on above: Performed By: #### L ACDS, TROPI, PRCAL, MYCM #### [address] [address] Immature granulocytes #/vol (Bld) 2 % High 0 [facility] Comment on above: Performed By: #### L ACDS, TROPI, PRCAL, MYCM #### [address] [address] Lymphocytes #/vol (Bld) 1.32 10*3/uL Normal 1.0-4.8 [facility] Comment on above: Performed By: #### L ACDS, TROPI, PRCAL, MYCM #### [facility] [address] [place] [address] 77491 Lymphocytes/100 WBC (Bld) 21 % Low 24-44 [facility] Comment on above: Performed By: #### L ACDS, TROPI, PRCAL, MYCM #### [address] [address] Monocytes #/vol (Bld) 0.44 10*3/uL Normal 0.1-0.8 [facility] Comment on above: Performed By: #### L ACDS, TROPI, PRCAL, MYCM #### [address] [address] Monocytes/100 WBC (Bld) 7 % Normal 1-7 [facility] Comment on above: Performed By: #### L ACDS, TROPI, PRCAL, MYCM #### [address] [address] Morphology Interp Rehan (Bld) ANISOCYTOSIS PRESENT Normal [facility] Comment on above: Result Comment: INCR EASED BANDS PRESENT 1+ TEARDROPS Performed By: #### L ACDS, TROPI, PRCAL, MYCM #### [facility] [address] [place] [address] 62703 Neutrophil (Seg) 69 % High 36-66 [facility] Comment on above: Performed By: #### L ACDS, TROPI, PRCAL, MYCM #### [facility] [address] [place] [address] 09165 Erythrocyte distribution width Ratio (RBC) 14.8 % High 11.8-14.4 [facility] Comment on above: Performed By: #### L ACDS, TROPI, PRCAL, MYCM #### [address] [address]48 Hematocrit Volume Fraction (Bld) 33.3 % Low 36.3-47.1 [facility] Comment on above: Performed By: #### L ACDS, TROPI, PRCAL, MYCM #### [facility] [address] [place] [address] 94508 Hemoglobin mass conc (Bld) 10.2 g/dL Low 11.9-15.1 [facility] Comment on above: Performed By: #### L ACDS, TROPI, PRCAL, MYCM #### [address] [address]885 MCH Entitic mass (RBC) 28.3 pg Normal 25.2-33.5 [facility] Comment on above: Performed By: #### L ACDS, TROPI, PRCAL, MYCM #### [facility] [address] [place] [address] 13295 MCHC mass conc (RBC) 30.6 g/dL Normal 28.4-34.8 [facility] Comment on above: Performed By: #### L ACDS, TROPI, PRCAL, MYCM #### [facility] [address] [place] [address] 76258 MCV Entitic volume (RBC) 92.2 fL Normal 82.6-102.9 [facility] Comment on above: Performed By: #### L ACDS, TROPI, PRCAL, MYCM #### [facility] [address] [place] [address] 83835 NRBC Automated 0.0 per 100 WBC Normal 0.0 [facility] Comment on above: Performed By: #### L ACDS, TROPI, PRCAL, MYCM #### [address] [address]274 Platelet mean volume Entitic volume (Bld) 11.5 fL Normal 8.1-13.5 [facility] Comment on above: Performed By: #### L ACDS, TROPI, PRCAL, MYCM #### [address] [address]36[address] Platelets #/vol (Bld) 149 10*3/uL Normal 138-453 [facility] Comment on above: Performed By: #### L ACDS, TROPI, PRCAL, MYCM #### [address] 066[address] RBC #/vol (Bld) 3.61 10*6/uL Low 3.95-5.11 [facility] Comment on above: Performed By: #### L ACDS, TROPI, PRCAL, MYCM #### [address] [address] WBC #/vol (Bld) 6.3 10*3/uL Normal 3.5-11.3 [facility] Comment on above: Performed By: #### L ACDS, TROPI, PRCAL, MYCM #### [address] [address] Auto Diff Performed NOT REPORTED Normal [facility] Comment on above: Performed By: #### L ACDS, TROPI, PRCAL, MYCM #### [address] [address] Platelets #/vol (Bld) NOT REPORTED Normal [facility] Comment on above: Performed By: #### L ACDS, TROPI, PRCAL, MYCM #### [address] [place] [address] RBC morphology finding Nom (Bld) NOT REPORTED Normal [facility] Comment on above: Performed By: #### L ACDS, TROPI, PRCAL, MYCM #### [facility] [place] [address] WBC Morphology NOT REPORTED Normal [facility] Comment on above: Performed By: #### L ACDS, TROPI, PRCAL, MYCM #### [facility] [address] [place] [address] 13036 Comp Metabolic Pr/rfx MGon 1 10-17-2017 (cont.) Normal [facility] Comment on above: Result Comment: Aver age GFR for 30-39 years old: 107 mL/min/1.73sq m Chronic Kidney Disease: <60 mL/min/1.73sq m Kidney failure: <15 mL/min/1.73sq m eGFR calculated using average adult body mass. Additional eGFR calculator available at: http://www.[employer].Primary Data/multiple_crcl_2012.htm Performed By: #### L ACDS, TROPI, PRCAL, MYCM #### [facility] [address] [place] [address] 54712 Albumin mass conc 2.4 g/dL Low 3.5-5.2 [facility] Comment on above: Performed By: #### L ACDS, TROPI, PRCAL, MYCM #### [facility] [address] [place] [address] 06480 Albumin/Globulin mass ratio 0.7 {ratio} Low 1.0-2.5 [facility] Comment on above: Performed By: #### L ACDS, TROPI, PRCAL, MYCM #### [facility] [address] [place] [address] 70697 Alkaline Phos 76 U/L Normal 35-104 [facility] Comment on above: Performed By: #### L ACDS, TROPI, PRCAL, MYCM #### [facility] [address] [place] [address] 82925 ALT enzyme act/vol 25 U/L Normal 5-33 [facility] Comment on above: Performed By: #### L ACDS, TROPI, PRCAL, MYCM #### [facility] [address] [place] [address] 64039 Anion gap molar conc 8 mmol/L Low 9-17 [facility] Comment on above: Performed By: #### L ACDS, TROPI, PRCAL, MYCM #### [facility] [address] [place] [address] 68097 AST enzyme act/vol 26 U/L Normal <32 [facility] Comment on above: Performed By: #### L ACDS, TROPI, PRCAL, MYCM #### [facility] [address] [place] [address] 64006 Bilirubin Ql (U) 0.34 mg/dL Normal 0.3-1.2 [facility] Comment on above: Performed By: #### L ACDS, TROPI, PRCAL, MYCM #### [facility] [address] [place] [address] 58091 Calcium mass conc 7.8 mg/dL Low 8.6-10.4 [facility] Comment on above: Performed By: #### L ACDS, TROPI, PRCAL, MYCM #### [facility] [address] [place] [address] 82790 Chloride molar conc 99 mmol/L Normal 98-107 [facility] Comment on above: Performed By: #### L ACDS, TROPI, PRCAL, MYCM #### [facility] [address] [place] [address] 27561 CO2 molar conc 23 mmol/L Normal 20-31 [facility] Comment on above: Performed By: #### L ACDS, TROPI, PRCAL, MYCM #### [facility] [address] [place] [address] 38562 Creatinine mass conc 1.04 mg/dL High 0.50-0.90 [facility] Comment on above: Performed By: #### L ACDS, TROPI, PRCAL, MYCM #### [facility] [address] [place] [address] 92031 GFR, Amer >60 Normal >60 [facility] Comment on above: Performed By: #### L ACDS, TROPI, PRCAL, MYCM #### [facility] [address] [place] [address] 27799 GFR,non Amer 59 mL/min Low >60 [facility] Comment on above: Performed By: #### L ACDS, TROPI, PRCAL, MYCM #### [facility] [address] [place] [address] 41634 Glucose mass conc 109 mg/dL High 70-99 [facility] Comment on above: Performed By: #### L ACDS, TROPI, PRCAL, MYCM #### [facility] [address] [place] [address] 18521 Potassium molar conc 3.8 mmol/L Normal 3.7-5.3 [facility] Comment on above: Performed By: #### L ACDS, TROPI, PRCAL, MYCM #### [facility] [address] [place] [address] 53317 Protein mass conc 5.8 g/dL Low 6.4-8.3 [facility] Comment on above: Performed By: #### L ACDS, TROPI, PRCAL, MYCM #### [facility] [address] [place] [address] 87978 Sodium molar conc 130 mmol/L Low 135-144 [facility] Comment on above: Performed By: #### L ACDS, TROPI, PRCAL, MYCM #### [facility] [address] [place] [address] Urea nitrogen mass conc 15 mg/dL Normal -20 [facility] Comment on above: Performed By: #### L ACDS, TROPI, PRCAL, MYCM #### [facility] [address] [place] [address] 98043 BUN/CRE Ratio NOT REPORTED Normal - [facility] Comment on above: Performed By: #### L ACDS, TROPI, PRCAL, MYCM #### [facility] [address] [place] [address] 53814 Staging: NOT REPORTED Normal [facility] Comment on above: Performed By: #### L ACDS, TROPI, PRCAL, MYCM #### [facility] [address] [place] [address] 67440 Magnesiumon 08-17-2018 Magnesium mass conc 2.2 mg/dL Normal 1.6-2.6 [facility] Comment on above: Performed By: #### L ACDS, TROPI, PRCAL, MYCM #### [facility] [address] [place] [address] 41289 Procalcitoninon 08-17-2018 Protein mass conc 1.48 ng/mL High <0.09 [facility] Comment on above: Result Comment: Suspected [...] entered into the Change in Procalcitonin Calculator ([email or web address]-cqp-bxpvgosuzu.com) to determine the patient's Mortality Risk Prognosis Performed By: #### L ACDS, TROPI, PRCAL, MYCM #### [address] [address] Sedimentation Rateon 018 Sedimentation Rate 97 mm High 0-20 [facility] Comment on above: Performed By: #### L ACDS, TROPI, PRCAL, MYCM #### [address] [address] CBC with Diffon 08-16-2018 Abs. Basophil 0.00 k/uL Normal 0.00-0.20 [facility] Comment on above: Performed By: #### L ACDS, TROPI, PRCAL, MYCM #### [address] [address] Abs.Imm.Granulocyte 0.11 k/uL Normal 0.00-0.30 [facility] Comment on above: Performed By: #### L ACDS, TROPI, PRCAL, MYCM #### [address] [address] Abs.Neutrophil (Seg) 4.60 k/uL Normal 1.50-8.10 [facility] Comment on above: Performed By: #### L ACDS, TROPI, PRCAL, MYCM #### [facility] [address] [place] [address] 02441 Basophils/100 WBC (Bld) 0 % Normal 0-2 [facility] Comment on above: Performed By: #### L ACDS, TROPI, PRCAL, MYCM #### [address] [address] Eosinophils #/vol (Bld) 0.00 10*3/uL Normal 0.00-0.44 [facility] Comment on above: Performed By: #### L ACDS, TROPI, PRCAL, MYCM #### [address] 7[address]83 Eosinophils/100 WBC (Bld) 0 % Low 1-4 [facility] Comment on above: Performed By: #### L ACDS, TROPI, PRCAL, MYCM #### [address] 9[address]00 Immature granulocytes #/vol (Bld) 2 % High 0 [facility] Comment on above: Performed By: #### L ACDS, TROPI, PRCAL, MYCM #### [address] [address] Lymphocytes #/vol (Bld) 0.67 10*3/uL Low 1.10-3.70 [facility] Comment on above: Performed By: #### L ACDS, TROPI, PRCAL, MYCM #### [address] 84843 Lymphocytes/100 WBC (Bld) 12 % Low 24-43 [facility] Comment on above: Performed By: #### L ACDS, TROPI, PRCAL, MYCM #### [address] [address] Monocytes #/vol (Bld) 0.22 10*3/uL Normal 0.10-1.20 [facility] Comment on above: Performed By: #### L ACDS, TROPI, PRCAL, MYCM #### [address] [address]67 Monocytes/100 WBC (Bld) 4 % Normal 3-12 [facility] Comment on above: Performed By: #### L ACDS, TROPI, PRCAL, MYCM #### [address] [address] Morphology Interp Rehan (Bld) ANISOCYTOSIS PRESENT Normal [facility] Comment on above: Result Comment: INCR EASED BANDS PRESENT 1+ TEARDROPS Performed By: #### L ACDS, TROPI, PRCAL, MYCM #### [address] [address] Neutrophil (Seg) 82 % High 36-65 [facility] Comment on above: Performed By: #### L ACDS, TROPI, PRCAL, MYCM #### [address] [address] Erythrocyte distribution width Ratio (RBC) 15.1 % High 11.8-14.4 [facility] Comment on above: Performed By: #### L ACDS, TROPI, PRCAL, MYCM #### [address] [address]78 Hematocrit Volume Fraction (Bld) 34.1 % Low 36.3-47.1 [facility] Comment on above: Performed By: #### L ACDS, TROPI, PRCAL, MYCM #### [address] [address]77 Hemoglobin mass conc (Bld) 10.0 g/dL Low 11.9-15.1 [facility] Comment on above: Performed By: #### L ACDS, TROPI, PRCAL, MYCM #### [address] [address]04 MCH Entitic mass (RBC) 28.7 pg Normal 25.2-33.5 [facility] Comment on above: Performed By: #### L ACDS, TROPI, PRCAL, MYCM #### [address] [address]259 MCHC mass conc (RBC) 29.3 g/dL Normal 28.4-34.8 [facility] Comment on above: Performed By: #### L ACDS, TROPI, PRCAL, MYCM #### [address] [address] MCV Entitic volume (RBC) 98.0 fL Normal 82.6-102.9 [facility] Comment on above: Performed By: #### L ACDS, TROPI, PRCAL, MYCM #### [address] [address] NRBC Automated 0.0 per 100 WBC Normal 0.0 [facility] Comment on above: Performed By: #### L ACDS, TROPI, PRCAL, MYCM #### [address] [address] Platelet mean volume Entitic volume (Bld) 11.1 fL Normal 8.1-13.5 [facility] Comment on above: Performed By: #### L ACDS, TROPI, PRCAL, MYCM #### [address] 73442 Platelets #/vol (Bld) 119 10*3/uL Low 138-453 [facility] Comment on above: Performed By: #### L ACDS, TROPI, PRCAL, MYCM #### [address] [address] RBC #/vol (Bld) 3.48 10*6/uL Low 3.95-5.11 [facility] Comment on above: Performed By: #### L ACDS, TROPI, PRCAL, MYCM #### [address] [address]55 WBC #/vol (Bld) 5.6 10*3/uL Normal 3.5-11.3 [facility] Comment on above: Performed By: #### L ACDS, TROPI, PRCAL, MYCM #### [facility] [address] [place] [address] Auto Diff Performed NOT REPORTED Normal [facility] Comment on above: Performed By: #### L ACDS, TROPI, PRCAL, MYCM #### [facility] [address] [place] [address] 13888 Platelets #/vol (Bld) NOT REPORTED Normal [facility] Comment on above: Performed By: #### L ACDS, TROPI, PRCAL, MYCM #### [facility] [address] [place] [address] 27909 RBC morphology finding Nom (Bld) NOT REPORTED Normal [facility] Comment on above: Performed By: #### L ACDS, TROPI, PRCAL, MYCM #### [facility] [address] [place] [address] 14996 WBC Morphology NOT REPORTED Normal [facility] Comment on above: Performed By: #### L ACDS, TROPI, PRCAL, MYCM #### [facility] [address] [place] [address] HEAD WO CONTRASTon 2017 CT HEAD [...] Erica Angeles MD 08/16/18 Final result Normal [facility] Calcium, Ionicon 08-16-2018 Calcium mass conc 0.99 mmol/L Low 1.13-1.33 [facility] Comment on above: Performed By: #### L ACDS, TROPI, PRCAL, MYCM #### [facility] [address] [place] [address] 98842 Comp Metabolic Pr/rfx MGon 1 10-16-2017 (cont.) Normal [facility] Comment on above: Result Comment: Aver age GFR for 30-39 years old: 107 mL/min/1.73sq m Chronic Kidney Disease: <60 mL/min/1.73sq m Kidney failure: <15 mL/min/1.73sq m eGFR calculated using average adult body mass. Additional eGFR calculator available at: http://www.[employer].Primary Data/multiple_crcl_2012.htm Performed By: #### P T, CMPX, MG, CDP #### [facility] [address] [place] [address] 33187 Albumin mass conc 2.3 g/dL Low 3.5-5.2 [facility] Comment on above: Performed By: #### P T, CMPX, MG, CDP #### [facility] [address] [place] [address] 55657 Albumin/Globulin mass ratio 0.7 {ratio} Low 1.0-2.5 [facility] Comment on above: Performed By: #### P T, CMPX, MG, CDP #### [employer] [address] [place] [address] 22095 Alkaline Phos 67 U/L Normal 35-104 [facility] Comment on above: Performed By: #### P T, CMPX, MG, CDP #### [facility] [address] [place] [address] 89217 ALT enzyme act/vol 33 U/L Normal 5-33 [facility] Comment on above: Performed By: #### P T, CMPX, MG, CDP #### [facility] [address] [place] [address] 55389 Anion gap molar conc 11 mmol/L Normal 9-17 [facility] Comment on above: Performed By: #### P T, CMPX, MG, CDP #### [facility] [address] [place] [address] 82504 AST enzyme act/vol 41 U/L High <32 [facility] Comment on above: Performed By: #### P T, CMPX, MG, CDP #### [facility] [address] [place] [address] 82357 Bilirubin Ql (U) 0.40 mg/dL Normal 0.3-1.2 [facility] Comment on above: Performed By: #### P T, CMPX, MG, CDP #### [facility] [address] [place] [address] 12608 Calcium mass conc 7.3 mg/dL Low 8.6-10.4 [facility] Comment on above: Performed By: #### P T, CMPX, MG, CDP #### [facility] [address] [place] [address] 92940 Chloride molar conc 105 mmol/L Normal 98-107 [facility] Comment on above: Performed By: #### P T, CMPX, MG, CDP #### [facility] [address] [place] [address] 47159 CO2 molar conc 18 mmol/L Low 20-31 [facility] Comment on above: Performed By: #### P T, CMPX, MG, CDP #### [facility] [address] [place] [address] 55544 Creatinine mass conc 1.09 mg/dL High 0.50-0.90 [facility] Comment on above: Performed By: #### P T, CMPX, MG, CDP #### [facility] [address] [place] [address] 82644 GFR, Amer >60 Normal >60 [facility] Comment on above: Performed By: #### P T, CMPX, MG, CDP #### [facility] [address] [place] [address] 74067 GFR,non Amer 56 mL/min Low >60 [facility] Comment on above: Performed By: #### P T, CMPX, MG, CDP #### [facility] [address] [place] [address] 81999 Glucose mass conc 128 mg/dL High 70-99 [facility] Comment on above: Performed By: #### P T, CMPX, MG, CDP #### [facility] [address] [place] [address] 12978 Potassium molar conc 3.6 mmol/L Low 3.7-5.3 [facility] Comment on above: Performed By: #### P T, CMPX, MG, CDP #### [facility] [address] [place] [address] 86222 Protein mass conc 5.5 g/dL Low 6.4-8.3 [facility] Comment on above: Performed By: #### P T, CMPX, MG, CDP #### [facility] [address] [place] [address] 03734 Sodium molar conc 134 mmol/L Low 135-144 [facility] Comment on above: Performed By: #### P T, CMPX, MG, CDP #### [facility] [address] [place] [address] 11110 Urea nitrogen mass conc 17 mg/dL Normal 6-20 [facility] Comment on above: Performed By: #### P T, CMPX, MG, CDP #### [facility] [address] [place] [address] 01227 BUN/CRE Ratio NOT REPORTED Normal 06-24 [facility] Comment on above: Performed By: #### P T, CMPX, MG, CDP #### [facility] [address] [place] [address] 48664 Staging: NOT REPORTED Normal [facility] Comment on above: Performed By: #### P T, CMPX, MG, CDP #### [facility] [address] [place] [address] 48616 Lactic Acid,Whole Blon 08-16 Lactic Acid,Whole Bl 1.2 mmol/L Normal 0.7-2.1 [facility] Comment on above: Performed By: #### L ACDS, TROPI, PRCAL, MYCM #### [facility] [address] [place] [address] 65051 Lactic Acid,Whole Bl 1.2 mmol/L Normal 0.7-2.1 [facility] Comment on above: Performed By: #### L ACWB #### [address] [address] Magnesiumon 08-16-2018 Magnesium mass conc 2.0 mg/dL Normal 1.6-2.6 [facility] Comment on above: Performed By: #### L ACDS, TROPI, PRCAL, MYCM #### [facility] [address] [place] [address] 17659 Mycoplasma Ab,IgMon 08-16-20 18 Mycoplasma Ab,IgM 0.22 Normal <0.91 [facility] Comment on above: Result Comment: Reference Range: <=0.90 Negative 0.91-1.09 Equivocal >=1.10 Positive Performed By: #### L ACDS, TROPI, PRCAL, MYCM #### [facility] [address] [place] [address] [id number] PTon 08-16-2018 INR Coag RelTime (PPP) 1.0 {INR} Normal [facility] Comment on above: Result Comment: Therapeutic Range: Moderate Anticoagulant Intensity: INR = 2.0-3.0 High Anticoagulant Intensity: INR = 2.5-3.5 Performed By: #### P T, CMPX, MG, CDP #### [facility] [address] [place] [address] [phone] Prothrombin time (PT) Coag time (PPP) 11.0 s Normal 9.0-12.0 [facility] Comment on above: Performed By: #### P T, CMPX, MG, CDP #### [facility] [address] [place] [address] [id number] Troponinon 08-16-2018 Troponin I.cardiac mass conc Normal [facility] Comment on above: Result Comment: [...] diagnosis. Performed By: #### T ROPI #### [address] [phone] Troponin I.cardiac mass conc ng/mL Normal <0.03 [facility] Comment on above: Result Comment: Trop onin T results cannot be compared to Troponin-I results. Performed By: #### T ROPI #### [address] [phone] XR CHEST (2 VW)on 08-16-2018 XR CHEST [...] Noe Mitchell MD 08/16/18 Final result Normal [facility] Lactate, Sepsison 08-15-2018 Lactic Acid,Sep Wbld 3.5 mmol/L High 0.5-1.9 [facility] Comment on above: Performed By: #### L ACDS, TROPI, PRCAL, MYCM #### [address] [phone] Lactic Acid, Sepsis NOT REPORTED Normal 0.5-1.9 [facility] Comment on above: Performed By: #### L ACDS, TROPI, PRCAL, MYCM #### [address] [phone] Legionella Ag, Uron 08-15-20 18 Legionella Ag, [...] this test. Report Status FINAL 08/15/2018 Normal [facility] Comment on above: Performed By: #### U LAG #### [address] [id number] Procalcitoninon 08-15-2018 Protein mass conc 3.39 ng/mL High <0.09 [facility] Comment on above: Result Comment: Suspected [...] entered into the Change in Procalcitonin Calculator ([email or web address] Data) to determine the patient's Mortality Risk Prognosis Performed By: #### L ACDS, TROPI, PRCAL, MYCM #### [employer] [address] [place] [address] [phone] Strep pneum Ag,CSF/Uron 08-05 Strep pneum Ag,CSF/Ur Specimen Descripti on .CLEAN CATCH URINE Special Requests NOT REPORTED Direct Exam NEGATIVE: Strep pneumoniae antigen not detected Report Status FINAL 08/15/2018 Normal [facility] Comment on above: Performed By: #### S PAG #### [employer] [address] [place] [address] [id number] Troponinon 08-15-2018 Troponin I.cardiac mass conc ng/mL Normal <0.03 [facility] Comment on above: Result Comment: Trop onin T results cannot be compared to Troponin-I results. Performed By: #### L ACDS, TROPI, PRCAL, MYCM #### [employer] [address] [place] [address] [phone] Troponin I.cardiac mass conc Normal [facility] Comment on above: Result Comment: [...] #### L ACDS, TROPI, PRCAL, MYCM #### [employer] [address] [place] [address] Urinalysison 11-18-2017 Bilirubin, Urine Negative Invalid Interpretation Code NEG;NEGATIVE [facility] Blood, Urine Moderate Abnormal NEG;NEGATIVE [facility] Interpretation and review of laboratory results Abnormal Invalid Interpretation Code [facility] Nitrite, Urine Negative Invalid Interpretation Code NEG;NEGATIVE [facility] Protein, Urine Negative Invalid Interpretation Code NEG;NEGATIVE mg/dL [facility] RBCs, Urine 1 /HPF Invalid Interpretation Code 0 - 5 [facility] Squamous Epithelial < 1 Invalid Interpretation Code 0 - 40 /HPF [facility] Urine, bacteria in sediment Rare Invalid Interpretation Code NS;RARE /HPF [facility] Urine, character Hazy Invalid Interpretation Code [facility] Urine, color Yellow Invalid Interpretation Code [facility] Urine, glucose presence Negative Invalid Interpretation Code NEG;NEGATIVE mg/dL [facility] Urine, ketones presence Negative Invalid Interpretation Code NEG;NEGATIVE mg/dL [facility] Urine, leukocyte esterase presence Small Abnormal Negative [facility] Urine, pH 6.0 [pH] Invalid Interpretation Code 4.5 - 8.0 [facility] Urine, specific gravity 1.014 1 Invalid Interpretation Code 1.003 - 1.029 [facility] Urobilinogen, Urine < 2.0 Invalid Interpretation Code <2 mg/dL [facility] WBCs, Urine 6 /HPF High 0 - 5 [facility] CBC and Differentialon 11-17 Basophils 0.7 % Invalid Interpretation Code [facility] Basophils 0.1 K/mcL Invalid Interpretation Code 0 - 0.2 [facility] Eosinophils 0.2 K/mcL Invalid Interpretation Code 0 - 0.5 [facility] Erythrocytes (RBC) 3.97 M/mcL Invalid Interpretation Code 3.7 - 5.0 [facility] Hematocrit (HCT) 35.7 % Invalid Interpretation Code 34.4 - 44.8 % [facility] Hemoglobin (HGB) 12.2 g/dL Invalid Interpretation Code 11.6 - 15.4 g/dL [facility] Interpretation and review of laboratory results Abnormal Invalid Interpretation Code [facility] Lymphocytes 2.1 K/mcL Invalid Interpretation Code 1.0 - 3.7 [facility] MCH 30.6 pg Invalid Interpretation Code 27.9 - 33.9 pg [facility] MCHC 34.0 g/dL Invalid Interpretation Code 33.1 - 35.1 g/dL [facility] MCV 89.8 fL Invalid Interpretation Code 82.6 - 98.9 [facility] Monocytes 0.6 K/mcL Invalid Interpretation Code 0.1 - 0.6 [facility] Neutrophils 6.6 K/mcL Invalid Interpretation Code 1.2 - 6.9 [facility] Platelet mean volume (PMV) 8.6 fL Invalid Interpretation Code 7.0 - 10.6 [facility] Platelets 196 K/mcL Invalid Interpretation Code 162 - 402 [facility] RDW-CA 15.0 % High 10 - 14.4 % [facility] Segmented Neut 69.6 % Invalid Interpretation Code [facility] T8 suppressor/100 cells 1.8 10*3/uL Invalid Interpretation Code [facility] T8 suppressor/100 cells 21.8 10*3/uL Invalid Interpretation Code [facility] T8 suppressor/100 cells 6.1 10*3/uL Invalid Interpretation Code [facility] WBC (Leukocytes) 9.5 K/mcL Invalid Interpretation Code 3.4 - 10.6 [facility] Comprehensive Metabolic Pane ananda 11-17-2017 Alanine aminotransferase (ALT) 18 U/L Invalid Interpretation Code 14 - 65 U/L [facility] Albumin 3.1 g/dL Low 3.2 - 5.2 g/dL [facility] Alkaline phosphatase (ALP) 78 U/L Invalid Interpretation Code 40 - 140 U/L [facility] Aspartate aminotransferase (AST) 7 U/L Invalid Interpretation Code 0 - 45 U/L [facility] Calcium 8.6 mg/dL Invalid Interpretation Code 8.4 - 10.2 mg/dL [facility] Chloride 106 mmol/L Invalid Interpretation Code 98 - 108 mmol/L [facility] CO2 27 mmol/L Invalid Interpretation Code 21 - 32 mmol/L [facility] Creatinine 1.13 mg/dL High 0.4 - 1.1 mg/dL [facility] eGFR (black) mL/min/{1.73_m2} Invalid Interpretation Code ml/min/1.73sq .m [facility] eGFR (non-black) 54 mL/min/{1.73_m2} Low >60 [facility] Glucose 113 mg/dL High 70 - 99 mg/dL [facility] Interpretation and review of laboratory results Abnormal Invalid Interpretation Code [facility] Potassium 3.7 mmol/L Invalid Interpretation Code 3.5 - 5.1 mmol/L [facility] Protein 6.8 g/dL Invalid Interpretation Code 6 - 8 g/dL [facility] Sodium 140 mmol/L Invalid Interpretation Code 135 - 145 mmol/L [facility] Urea nitrogen 17 mg/dL Invalid Interpretation Code 8 - 25 mg/dL [facility] Urine, bilirubin presence 0.4 mg/dL Invalid Interpretation Code 0.3 - 1.2 mg/dL [facility] Lipaseon 11-17-2017 Lipase 167 U/L Invalid Interpretation Code 73 - 393 U/L [facility] Vital Signs Date Time Vital Sign Value Performing Clinician Yovani mclaughlin 05-24-2025 11:47-0400 Body height 157.5 cm Jennie [email or web address] Work Phone: [facility] 05-24-2025 11:47-0400 Body mass index (BMI) [Ratio] 38.41 kg/m2 [email or web address] [email or web address] Work Phone: [facility] 05-24-2025 11:47-0400 Body weight 95.25 kg Jennie [email or web address] Work Phone: [facility] 05-24-2025 11:47-0400 Diastolic blood pressure 80 mm[Hg] Jennie [email or web address] Work Phone: [facility] 05-24-2025 11:47-0400 Respiratory rate 18 /min [email or web address] Work Phone: [facility] 05-24-2025 11:47-0400 SaO2% (BldA) [Mass fraction] 98 % Jennie [email or web address] Work Phone: [facility] 05-24-2025 11:47-0400 Systolic blood pressure 120 mm[Hg] Jennie TrevenaN-HEAD OF MAINTENANCE Work Phone: [facility] 04-20-2025 12:32-0400 Body height 157.5 cm Christopher Bohach DPM Work Phone: [facility] 04-20-2025 12:32-0400 Body mass index (BMI) [Ratio] 38.41 kg/m2 Christopher Bohach DPM Work Phone: [facility] 04-20-2025 12:32-0400 Body weight 95.25 kg Christopher Bohach DPM Work Phone: [facility] 04-20-2025 12:32-0400 Diastolic blood pressure 89 mm[Hg] Christopher Bohach DPM Work Phone: [facility] 04-20-2025 12:32-0400 Heart rate 101 /min Christopher Bohach DPM Work Phone: [facility] 04-20-2025 12:32-0400 Systolic blood pressure 128 mm[Hg] Christopher Bohach DPM Work Phone: [facility] 04-06-2025 16:21-0400 Body height 157.5 cm Christopher Bohach DPM Work Phone: [facility] 04-06-2025 16:21-0400 Body mass index (BMI) [Ratio] 38.41 kg/m2 Christopher Bohach DPM Work Phone: [facility] 04-06-2025 16:21-0400 Body weight 95.25 kg Christopher Bohach DPM Work Phone: [facility] 04-06-2025 16:21-0400 Diastolic blood pressure 80 mm[Hg] Christopher Bohach DPM Work Phone: [facility] 04-06-2025 16:21-0400 Heart rate 89 /min Christopher Bohach DPM Work Phone: [facility] 04-06-2025 16:21-0400 Systolic blood pressure 118 mm[Hg] Christopher Bohach DPM Work Phone: [facility] [employer] 04-04-2025 23:15-0400 Diastolic blood pressure 70 mm[Hg] Severo Case MD Work Phone: [facility] [employer] 04-04-2025 23:15-0400 Heart rate 74 /min [facility] 04-04-2025 23:15-0400 Respiratory rate 16 /min [facility]o [facility] MD [facility] 04-04-2025 23:15-0400 SaO2% (BldA) [Mass fraction] 97 % Severo Case MD Work Phone: [facility] [employer] 04-04-2025 23:15-0400 Systolic blood pressure 122 mm[Hg] Severo [facility] MD [facility] 04-04-2025 21:24-0400 Body height 152.4 cm Severo Case MD [facility] 04-04-2025 21:24-0400 Body mass index (BMI) [Ratio] 41.99 kg/m2 Severo Case MD Work Phone: [facility] [employer] 04-04-2025 21:24-0400 Body weight 97.52 kg Severo Case MD Work Phone: [facility] [employer] 04-04-2025 21:15-0400 Body temperature 99 [degF] Severo Case MD Work Phone: [facility] [employer] 03-14-2025 12:02-0400 Body height 157.5 cm Lynn Block MD Work Phone: [facility] 03-14-2025 12:02-0400 Body mass index (BMI) [Ratio] 38.41 kg/m2 Lynn Block MD Work Phone: [facility] 03-14-2025 12:02-0400 Body weight 95.25 kg Lynn Block MD Work Phone: [facility] 12-06-2024 13:00-0500 Body height 157.5 cm Lynn Block MD Work Phone: [facility] 12-06-2024 13:00-0500 Body mass index (BMI) [Ratio] 38.41 kg/m2 Lynn Block MD Work Phone: [facility] 12-06-2024 13:00-0500 Body weight 95.25 kg Lynn Block MD Work Phone: [facility] 11-14-2024 11:31-0500 Body height 157.5 cm Fozia Meng IMPORT/EXPORT ANALYST Work Phone: [facility] 11-14-2024 11:31-0500 Body mass index (BMI) [Ratio] 37.9 kg/m2 Fozia Meng IMPORT/EXPORT ANALYST Work Phone: [facility] 11-14-2024 11:31-0500 Body weight 93.98 kg Fozia Eamongel IMPORT/EXPORT ANALYST Work Phone: [facility] 11-14-2024 11:31-0500 Diastolic blood pressure 80 mm[Hg] Fozia Eamongel IMPORT/EXPORT ANALYST Work Phone: [facility] 11-14-2024 11:31-0500 Systolic blood pressure 134 mm[Hg] Fozia Meng IMPORT/EXPORT ANALYST Work Phone: [facility] 10-11-2024 09:42-0500 Body height 157.5 cm Sherman Adair MD Work Phone: [facility] 10-11-2024 09:42-0500 Body mass index (BMI) [Ratio] 38.23 kg/m2 Sherman Adair MD Work Phone: [facility] 10-11-2024 09:42-0500 Body temperature 98.29 [degF] Sherman Adair MD Work Phone: [facility] 10-11-2024 09:42-0500 Body weight 94.8 kg Sherman Adair MD Work Phone: [facility] 09-14-2024 11:30-0500 Body height 157.5 cm Fozia Meng IMPORT/EXPORT ANALYST Work Phone: [facility] 09-14-2024 11:30-0500 Body mass index (BMI) [Ratio] 39.91 kg/m2 Fozia Knutsongel IMPORT/EXPORT ANALYST Work Phone: [facility] 09-14-2024 11:30-0500 Body weight 98.97 kg Fozia Knutsongel IMPORT/EXPORT ANALYST Work Phone: [facility] 09-14-2024 11:30-0500 Diastolic blood pressure 70 mm[Hg] Fozia Knutsongel IMPORT/EXPORT ANALYST Work Phone: [facility] 09-14-2024 11:30-0500 Systolic blood pressure 140 mm[Hg] Fozia Knutsongel IMPORT/EXPORT ANALYST Work Phone: [facility] 06-10-2024 [...] 157.5 cm Cheryl Miles DO Work Phone: [facility] 05-10-2024 14:20-0400 Body mass index (BMI) [Ratio] 38.41 kg/m2 Cheryl Ginger DO Work Phone: [facility] 05-10-2024 14:20-0400 Body weight 95.25 kg Cheryl Ginger DO Work Phone: [facility] 05-10-2024 14:20-0400 Diastolic blood pressure 74 mm[Hg] Cheryl Ginger DO Work Phone: [facility] 05-10-2024 14:20-0400 Heart rate 83 /min Cheryl Ginger DO Work Phone: [facility] 05-10-2024 14:20-0400 SaO2% (BldA) [Mass fraction] 97 % Cheryl Ginger DO Work Phone: [facility] 05-10-2024 14:20-0400 Systolic blood pressure 118 mm[Hg] Cheryl Ginger DO Work Phone: [facility] 03-03-2023 14:44-0400 Body temperature 98.49 [degF] CJ Hassmann DPM Work Phone: [facility] 03-03-2023 14:44-0400 Diastolic blood pressure 87 mm[Hg] CJ Hassmann DPM Work Phone: [facility] 03-03-2023 14:44-0400 Heart rate 94 /min CJ Hassmann DPM Work Phone: [facility] 03-03-2023 14:44-0400 Systolic blood pressure 139 mm[Hg] CJ Hassmann DPM Work Phone: [facility] 07-02-2022 09:36-0400 Body height 157.5 cm [employer] Work Phone: [facility] 07-02-2022 09:36-0400 Body mass index (BMI) [Ratio] 38.67 kg/m2 [employer] Work Phone: [facility] 07-02-2022 09:36-0400 Body weight 95.89 kg [employer] Work Phone: [facility] 09-16-2020 20:53-0500 BMI (Body Mass Index) 39.32 kg/m2 [facility] [place] 09-16-2020 20:53-0500 Body Temperature 99.5 [degF] [place], [place] 09-16-2020 20:53-0500 Body weight 97.52 kg [place] 09-16-2020 20:53-0500 BP Diastolic 109 mm[Hg] [facility] [place] 09-16-2020 20:53-0500 BP Systolic 189 mm[Hg] [facility] [place] 09-16-2020 20:53-0500 Height 157.5 cm [place], [place] 09-16-2020 20:53-0500 Pulse (Heart Rate) 99 /min [place] 09-16-2020 20:53-0500 Pulse Oximetry 96 % [place] 09-16-2020 20:53-0500 Respiratory Rate 18 /min [place] Encounters Encounter Date Encounter Type Care Provider Facility Start: 06-12-2025 End: 06-12-2025 [facility] Start: 06-12-2025 End: 06-12-2025 Subsequent hospital visit by physician [facility] Comment on above: Arrived Start: 05-24-2025 End: 05-24-2025 BamUbertesterso newMentorheet Jennie Van BUREAU DIRECTOR-HEAD OF MAINTENANCE Work Phone: [facility] Start: 05-24-2025 End: 05-24-2025 RaphaelUbertesterso newMentorajay Van BUREAU DIRECTOR-HEAD OF MAINTENANCE Work Phone: [facility] Start: 05-24-2025 End: 05-24-2025 ambulatory JENNIE VAN Not Available Start: 05-24-2025 End: 05-24-2025 Office outpatient visit 25 minutes Jennie Van BUREAU DIRECTOR-HEAD OF MAINTENANCE Work Phone: [facility] Comment on above: BUCK (obstructive sle ep apnea) (Primary Dx); Cervical paraspinal muscle spasm; Cervical radiculopathy Start: 05-23-2025 End: 05-23-2025 Telephone encounter Lynn Block MD [facility] Start: 05-15-2025 End: 05-15-2025 ambulatory [facility]IPE [facility] Start: 05-15-2025 End: 05-15-2025 Subsequent hospital visit by physician [facility] Schedule [facility] Comment on above: Arrived Start: 04-20-2025 End: 04-20-2025 Bamboo flowsheet Robbin Sánchez DPM Work Phone: [facility] [employer] [facility] Start: 04-20-2025 End: 04-20-2025 Bamboo flowsheet Robbin Sánchez DPM Work Phone: [facility] [employer] [facility] Start: 04-20-2025 End: 04-20-2025 Office outpatient visit 25 minutes Robbin Sánchez DPM Work Phone: [facility] [employer] [facility] Comment on above: MRSA (methicillin re [...] Start: 04-12-2025 End: 04-12-2025 Clinisync Result Encounter Robbni GARCIAM Work Phone: [facility] External Department Unsolicited Start: 04-12-2025 End: 04-12-2025 Clinisync Result Encounter Robbin GARCIAM Work Phone: [facility] External Department Unsolicited Start: 04-11-2025 End: 04-11-2025 Clinisync Result Encounter Robbin GARCIAM Work Phone: [facility] External Department Unsolicited Start: 04-11-2025 End: 04-11-2025 Clinisync Result Encounter Robbin Sánchez DPM Work Phone: [facility] External Department Unsolicited Start: 04-11-2025 End: 04-13-2025 ambulatory [facility] Start: 04-11-2025 End: 04-13-2025 Subsequent hospital visit by physician Robbin GARCIAM Work Phone: [facility] Comment on above: Pain in right foot Start: 04-06-2025 End: 04-06-2025 Office outpatient visit 25 minutes Robbin GARCIAM Work Phone: [facility] [employer] [facility] Comment on above: Right foot pain (Vikki baldev Dx); Skin ulcer of toe of right foot with fat layer exposed (HCC); Infection of toe; Idiopathic progressive polyneuropathy; Generalized edema Start: 04-06-2025 End: 04-06-2025 ambulatory ROBBIN SÁNCHEZ Not Available Start: 04-06-2025 End: 04-06-2025 Bamboo flowsheet Robbin Sánchez DPM Work Phone: [facility] [facility] Start: 04-06-2025 End: 04-06-2025 Bamboo flowsheet Robbin Sánchez DPM Work Phone: [facility] Start: 04-04-2025 End: 04-05-2025 Emergency department patient visit Severo Case MD Work Phone: [facility] Emergency Department Comment on above: Pressure [...] 25 minutes Lynn Block MD Work Phone: [facility] Comment on above: BUCK (obstructive sle ep apnea) (Primary Dx); Claustrophobia ; Hypersomnia Start: 03-14-2025 End: 03-14-2025 ambulatory LYNN BLOCK Not Available Start: 02-15-2025 End: 02-17-2025 ambulatory FELIPE [facility] Start: 02-15-2025 End: 02-17-2025 Subsequent hospital visit by physician Felipe Adam MD Work Phone: [facility] Comment on above: Encounter for screen ing mammogram for malignant neoplasm of breast Start: 02-13-2025 ambulatory Facility:[facility] Start: 02-13-2025 End: 02-13-2025 Bamboo flowsheet Tiffanie Casas MD Work Phone: [facility] Start: 02-13-2025 End: 02-13-2025 Bamboo flowsheet Tiffanie Casas MD Work Phone: [facility] Start: 02-13-2025 End: 02-13-2025 ambulatory TIFFANIE CASAS Not Available Start: 02-13-2025 End: 02-13-2025 Office outpatient visit 25 minutes Tiffanie Casas MD Work Phone: [facility] Comment on above: Charcot's [...] 60 minutes Lynn Block MD Work Phone: [facility] Comment on above: BUCK (obstructive sle ep apnea) (Primary Dx); BUCK on CPAP; Claustrophobia (CMS/HCC) Start: 11-14-2024 End: 11-14-2024 Bamboo flowsheet Fozia Jamila Meng IMPORT/EXPORT ANALYST Work Phone: [facility] Start: 11-14-2024 End: 11-14-2024 Bamboo flowsheet Fozia C Windnagel IMPORT/EXPORT ANALYST Work Phone: [facility] Start: 11-14-2024 End: 11-14-2024 Office outpatient visit 25 minutes Fozia Jamila Meng IMPORT/EXPORT ANALYST Work Phone: [facility] Comment on above: BUCK on CPAP (Primary Dx); Idiopathic progressive polyneuropathy; Restless legs; Intractable 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 (CMS/HCC) Start: 11-14-2024 End: 11-14-2024 ambulatory FOZIA C LYNDANAGEL Not Available Start: 11-14-2024 End: 11-14-2024 [facility] Start: 11-14-2024 End: 11-14-2024 Subsequent hospital visit by physician Felipe Adam MD Work Phone: [facility] Comment on above: Pre-diabetes; Mixed hyperlipidemia Start: 11-02-2024 End: 11-02-2024 Telephone encounter Janel Allen IMPORT/EXPORT ANALYST Work Phone: [facility] 210 Start: 10-11-2024 End: 10-11-2024 Office outpatient new 45 minutes Felipe Adam MD Work Phone: [facility] Comment on above: Thyroid nodule (Prim misa Dx); Lipoma of neck Start: 10-11-2024 End: 10-11-2024 ambulatory FELIPE BACK [facility] Start: 10-05-2024 End: 10-06-2024 Refill Tiffanie Casas MD Work Phone: [facility] Comment on above: Idiopathic progressi ve polyneuropathy; Non-seasonal allergic rhinitis due to pollen Start: 09-14-2024 End: 09-14-2024 Bamboo flowsheet Fozia Meng IMPORT/EXPORT ANALYST Work Phone: [facility] Start: 09-14-2024 End: 09-14-2024 Bamboo flowsheet Fozia Meng IMPORT/EXPORT ANALYST Work Phone: [facility] Start: 09-14-2024 End: 09-14-2024 Telephone encounter Fozia Meng IMPORT/EXPORT ANALYST Work Phone: [facility] 210 Start: 09-14-2024 End: 09-14-2024 Office outpatient visit 25 minutes Fozia Meng IMPORT/EXPORT ANALYST Work Phone: [facility] Comment on above: BUCK on CPAP (Primary Dx); Idiopathic progressive polyneuropathy; Intractable 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 (CMS/HCC); Restless legs; Bilateral carpal tunnel syndrome Start: 09-14-2024 End: 09-14-2024 ambulatory FOZIA MENG Not Available Start: 09-09-2024 End: 09-09-2024 Transcribe Orders Fozia Marcus MA [facility] ENT Lien rahman Comment on above: Thyroid nodule (Prim misa Dx) Start: 09-06-2024 End: 09-08-2024 ambulatory FELIPE BACK [facility] Start: 09-06-2024 End: 09-08-2024 Subsequent hospital visit by physician Felipe Adam MD Work Phone: [facility] Ultrasound Comment on above: Thyroid nodule Start: 08-11-2024 End: 08-11-2024 Refill Tiffanie Casas MD Work Phone: [facility] Comment on above: Idiopathic progressi ve polyneuropathy; Non-seasonal allergic rhinitis due to pollen Start: 06-10-2024 End: 06-10-2024 Bamboo flowsheet Tiffanie Casas MD Work Phone: [facility] Start: 06-10-2024 End: 06-10-2024 Bamboo flowsheet Tiffanie Casas MD Work Phone: [facility] Start: 06-10-2024 End: 06-10-2024 Office outpatient visit 25 minutes Tiffanie Casas MD Work Phone: [facility] Comment on above: Idiopathic progressi ve polyneuropathy (Primary Dx); Bilateral carpal tunnel syndrome; Restless legs; Intractable 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 ([facility]/HCC) Start: 06-10-2024 End: 06-10-2024 ambulatory TIFFANIE CASAS Not Available Start: 05-10-2024 End: 05-10-2024 Subsequent hospital visit by physician Felipe Adam MD Work Phone: [facility] Start: 05-10-2024 End: 05-10-2024 Office outpatient visit 40 minutes Cheryl Miles DO Work Phone: [facility] Comment on above: BUCK (obstructive sle ep apnea); Hypersomnia; Snoring; Class 2 obesity due to excess calories with body mass index (BMI) of 38.0 to 38.9 in adult, unspecified whether serious comorbidity present Start: 02-15-2024 End: 02-15-2024 ambulatory Frances Harris Facility:[facility] Start: 02-15-2024 End: 02-15-2024 ambulatory [facility] Frances Harris Work Phone: [facility] Work Phone: Start: 02-15-2024 End: 02-15-2024 Departed Referred DPM Frances Harris Work Phone: [facility] Start: 06-15-2023 End: 06-15-2023 Subsequent hospital visit by physician Felipe Adam MD Work Phone: [facility] Comment on above: Mixed hyperlipidemia Start: 04-03-2023 ambulatory FELIPE BACK [facility] Start: 03-03-2023 End: 03-03-2023 Office outpatient new 45 minutes CJ Adam GARCIAM Work Phone: [facility] Comment on above: Charcot arthropathy of midfoot (Primary Dx); Gastrocnemius equinus, unspecified laterality; Foot pain, left Start: 02-11-2023 End: 02-12-2023 [facility] Start: 02-05-2023 End: 02-05-2023 Subsequent hospital visit by physician Felipe Adam MD Work Phone: [facility] Comment on above: Pelvic pressure in f emale Start: 02-04-2023 End: 02-05-2023 ambulatory FRANCES Weston [facility]NOTE 2] Facility:H1 Start: 01-28-2023 End: 01-29-2023 ambulatory FRANCES Weston [facility]NOTE 2] Facility:H1 Start: 01-06-2023 End: 01-06-2023 Emergency department patient visit [facility] Start: 07-09-2022 End: 07-09-2022 Subsequent hospital visit by physician Samantha Lino RD, LD Work Phone: [facility] Diet and Nutrition Comment on above: Arrived Start: 07-02-2022 End: 07-02-2022 Subsequent hospital visit by physician anne Diabetes Education Work Phone: [facility] Diabetic Education Start: 06-25-2022 End: 06-27-2022 Subsequent hospital visit by physician Tennille Additional Xray At [facility] Comment on above: Foreign body (FB) in soft tissue Start: 06-25-2022 End: 06-27-2022 Subsequent hospital visit by physician [facility] MRI Comment on above: Pain of foot, unspec ified laterality; Closed nondisplaced fracture of second metatarsal bone of left foot, initial encounter; Closed nondisplaced fracture of lateral cuneiform of left foot, initial encounter Start: 05-27-2022 End: 2022 Subsequent hospital visit by physician [facility] Ultrasound Room [facility] Ultrasound Comment on above: Neck mass Start: 04-28-2022 End: 04-29-2022 ambulatory [facility] Start: 04-28-2022 End: 04-28-2022 Subsequent hospital visit by physician Fleipe Adam MD Work Phone: [facility] Comment [...] Start: 02-04-2022 End: 02-04-2022 Patient encounter procedure [facility] [address] Start: 02-03-2022 End: 02-03-2022 Subsequent hospital visit by physician Hilaria Trujillo [facility] Start: 01-29-2022 End: 01-29-2022 Subsequent hospital visit by physician Beverly Rangel TAG STRINGER [facility] Comment on above: Arrived Start: 01-27-2022 End: 01-27-2022 Subsequent hospital visit by physician Christel Donohue PT [facility] Comment on above: Arrived Start: 01-24-2022 End: 01-24-2022 Subsequent hospital visit by physician Vanessa Garcia PT [facility] Comment on above: Arrived Start: 01-22-2022 End: 01-22-2022 Subsequent hospital visit by physician Beverly Rangel [employer] [facility] Start: 01-17-2022 End: 01-17-2022 Subsequent hospital visit by physician Beverly Rangel [employer] [facility] Comment on above: Arrived Start: 01-13-2022 End: 01-13-2022 Subsequent hospital visit by physician Christel Donohue PT [facility] Start: 01-03-2022 End: 01-03-2022 Subsequent hospital visit by physician Beverly Rangel [employer] [facility] Comment on above: Arrived [...] Start: 11-29-2021 End: 11-29-2021 ambulatory FELIPE ADAM [facility] Start: 08-01-2021 End: 08-01-2021 Subsequent hospital visit [...] by physician Felipe Adam MD Work Phone: [facility] Start: 04-13-2021 End: 04-13-2021 Subsequent hospital visit by physician Felipe Adam MD Work Phone: [facility] Comment on above: Acute cystitis with hematuria Start: 02-13-2021 End: 02-13-2021 Subsequent hospital visit by physician [facility] Andriy19 Pat Screening Schedule [facility] ADMIT Comment on above: Suspected COVID-19 v irus infection Start: 01-21-2021 End: 01-21-2021 Subsequent hospital visit by physician [facility] Screening Schedule [facility] Comment on above: Viral illness Start: 11-15-2020 End: 11-15-2020 Subsequent hospital visit by physician [facility] Andriy Pat Screening Schedule [facility]MIT Comment on above: Arrived Start: 09-16-2020 End: 09-16-2020 Emergency department patient visit Phillippachecomichael Rooney Work Phone: [facility] [...] visit by physician [facility] Schedule [facility] Comment on above: Arrived Start: 07-28-2019 End: 07-30-2019 Subsequent hospital visit by physician Tennille Additional Xray At [facility] Comment on above: MRSA (methicillin re sistant Staphylococcus aureus) septicemia (HCC) Start: 06-17-2019 End: 06-17-2019 Subsequent hospital visit by physician Felipe Adam [facility] Comment on above: MRSA (methicillin re sistant Staphylococcus aureus) infection Start: 02-03-2019 End: 02-04-2019 Patient encounter procedure TIFFANIE CASAS [facility] Start: 02-03-2019 End: 02-03-2019 Subsequent hospital visit by physician Tiffanie Casas Work Phone: [facility] Comment on above: Brachial neuritis; Peripheral nerve disorder; Spasm of muscle Start: 11-10-2018 End: 11-10-2018 Patient encounter procedure Andrey Early Facility:[facility] Start: 10-18-2018 End: 10-18-2018 Patient encounter procedure Andrey Early Work Phone: [facility] Start: 10-03-2018 Patient encounter procedure Dav Hartman Facility:[facility] Start: 10-03-2018 End: 10-03-2018 Patient encounter procedure [facility] Start: 09-20-2018 End: 09-21-2018 Patient encounter procedure Gosia Hartman Facility:[facility] Start: 09-20-2018 Patient encounter procedure Facility:[id number] Start: 09-13-2018 Patient encounter procedure GOSIA HARTMAN [facility] Start: 09-06-2018 End: 09-06-2018 Patient encounter procedure Historical Provider [facility] Start: 08-31-2018 End: 08-31-2018 Patient encounter procedure [facility] Provider [facility] Start: 08-27-2018 End: 08-28-2018 Patient encounter procedure Gosia Hartman Facility:[facility] Start: 08-27-2018 Patient encounter procedure Facility:[id number] Start: 08-15-2018 End: 08-25-2018 [facility] Start: 04-02-2018 End: 04-02-2018 Patient encounter procedure Melchor Calderon Facility:[facility] Start: 03-23-2018 Patient encounter procedure Shanice Juares Facility:[facility] Start: 02-04-2018 End: 02-04-2018 Ambulatory Melchor Calderon [facility] Start: 11-24-2017 [facility] Start: 11-17-2017 End: 11-17-2017 Ambulatory Ceferino Corley Work Phone: [facility] Start: 10-20-2017 End: 10-20-2017 Ambulatory DAKSHA KING [facility] Start: 10-20-2017 [facility] Start: 10-09-2017 Ambulatory [facility] Start: 10-09-2017 End: 10-09-2017 [facility] Start: 09-16-2017 [facility] encounter [facility] Start: 08-03-2017 [facility] Start: 03-31-2017 End: 03-31-2017 Ambulatory SHANICE GOLDSTEIN MOR [facility] Procedures Date Procedure Procedure Detail Performing [...] Work Phone: Start: 01-21-2021 COVID-19 Pattie smith BUREAU DIRECTOR - HEAD OF MAINTENANCE Work Phone: Start: 11-15-2020 COVID-19 Dav flores [...] 09-24-2019 Hemoglobin glycosyla jamia a1c Janelsanta Allen BUREAU DIRECTOR - HEAD OF MAINTENANCE Work Phone: Start: 09-24-2019 VITAMIN B12 & FOLATE Ja danny Dieudonne Allen BUREAU DIRECTOR - HEAD OF MAINTENANCE Work Phone: Start: 07-28-2019 Radex spine cervical 4 or 5 views Azalea Knight Work Phone: Start: 07-28-2019 Blood count complete auto&auto difrntl wbc Azalea Knight BUREAU DIRECTOR - HEAD OF MAINTENANCE Work Phone: Start: 07-28-2019 C-reactive protein Azalea Knight BUREAU DIRECTOR - HEAD OF MAINTENANCE Work Phone: Start: 06-17-2019 Albumin serum plasma [...] Unless otherwise noted, all testing performed by [facility] [address] [place], [place] [address] CLIA: [id number] Poured Pipe Maker: Harshad Solano M.D. Start: 09-06-2018 End: 09-06-2018 [...] 08-19-2018 IP CONSULT TO IV TEAM W [facility] Start: 08-19-2018 Assay of magnesium SHOAIB [...] Detail Author Start: 04-14-2030 Lipid panel Lipids [employer] Start: 11-14-2029 Lipid panel Lipids [facility] [employer] Start: 2029 Shingles Vaccine (1 of 2) Shingles Vaccine (1 of 2) [employer] [place], [place] Start: 05-02-2029 Lipid panel Lipids [facility] [employer] Start: 12-10-2027 Screening for malignant neoplasm of colon [facility] [employer] Start: 04-12-2027 Lipid panel Lipids [facility] [employer] Start: 02-15-2027 Screening for malignant neoplasm of breast Breast cancer screen [facility] [employer] Start: 06-12-2026 GFR test (Diabetes, CKD 3-4, OR last GFR 15-59) GFR test (Diabetes, CKD 3-4, OR last GFR 15-59) [employer] Start: 05-15-2026 GFR test (Diabetes, CKD 3-4, OR last GFR 15-59) GFR test (Diabetes, CKD 3-4, OR last GFR 15-59) [facility] [employer] Start: 05-14-2026 Lipid panel [employer] Start: 04-14-2026 GFR test (Diabetes, CKD 3-4, OR last GFR 15-59) GFR test (Diabetes, CKD 3-4, OR last GFR 15-59) [employer] Start: 04-14-2026 Hemoglobin A1c measurement A1C test (Diabetic or Prediabetic) [employer] Start: 04-11-2026 GFR test (Diabetes, CKD 3-4, OR last GFR 15-59) GFR test (Diabetes, CKD 3-4, OR last GFR 15-59) [employer] Start: 11-15-2025 Depression Monitoring Depression Monitoring [facility] [employer] Start: 11-14-2025 GFR test (Diabetes, CKD 3-4, OR last GFR 15-59) GFR test (Diabetes, CKD 3-4, OR last GFR 15-59) [employer] Start: 11-14-2025 Hemoglobin A1c measurement A1C test (Diabetic or Prediabetic) [facility] Start: 10-12-2025 End: 10-12-2025 Patient encounter procedure 10/12/2025 10:30 AM EST Office Visit [facility] [address] [facility] [place] [address] Sherman Adair MD [address] [place] [address] [facility] Start: 10-11-2025 End: 10-11-2026 US Head and neck soft tissue US Soft Tissue Neck Imaging Routine Thyroid nodule Expected: 10/11/2025, Expires: 10/11/2026 [facility] Work Phone: Comment on above: Expected: 10/11/2025, Expires: Start: 08-23-2025 End: 08-23-2025 Patient encounter procedure 08/23/2025 1:00 PM EST Office Visit [facility] [address] [place] [address] [place] [phone] Jennie Van, [facility] [address] [facility] [place] [address] [facility] Start: 07-27-2025 End: 07-27-2025 Patient encounter procedure 07/27/2025 11:00 AM EDT Office Visit [facility] [address] [place] [address] Felipe Adam MD [address] [place] [address] Return in about 3 months (around 07/19/2025). [facility] Comment on above: Return in about 3 months (around 025). Start: 06-05-2025 COVID-19 Vaccine () COVID-19 Vaccine ( season) Sid [facility] Start: 05-31-2025 End: 05-24-2026 XR Cervical spine 4 or 5 Views XR cervical spine complete 4 to 5 views Imaging Routine Cervical paraspinal muscle spasm Expected: 05/31/2025, Expires: 05/24/2026 [facility] Work Phone: Comment on above: Expected: 05/31/2025, Expires: Start: 05-25-2025 Lipid panel Lipid screen [facility] [place], [place] Start: 05-24-2025 End: 05-24-2025 Patient encounter procedure 05/24/2025 11:30 AM EDT [facility] [address] [facility] [address] [place] [phone] Jennie Van, BUREAU DIRECTOR-HEAD OF MAINTENANCE [address] [facility] [place] [address] [facility] Start: 05-17-2025 End: 05-17-2025 Patient encounter procedure 05/17/2025 1:20 PM EDT Office Visit [facility] [address] [facility] [address] [place] [address] Tiffanie Casas MD [address] [facility] [address] [address] [facility] Start: 05-15-2025 End: 05-15-2025 Patient encounter procedure 05/15/2025 1:15 PM EDT Office Visit [facility] [address] [place] [phone] Felipe Adam MD [address] [place] [address] Return in about 6 months (around 05/15/2025). [facility] Comment on above: Return in about 6 months (around 05/15/20). Start: 05-10-2025 GFR test (Diabetes, CKD 3-4, OR last GFR 15-59) GFR test (Diabetes, CKD 3-4, OR last GFR 15-59) [facility] Start: 05-05-2025 Influenza vaccination [facility] Start: 05-02-2025 Hemoglobin A1c measurement A1C test (Diabetic or Prediabetic) [facility] Start: 05-02-2025 End: 05-02-2025 Patient encounter procedure 05/02/2025 2:00 PM EDT Office Visit [facility] B [address] [facility] [address] [place] [address] Fozia Meng, IMPORT/EXPORT ANALYST [address] , [facility] [address] [place] [address] [facility] B Start: 05-01-2025 End: 05-01-2025 Patient encounter procedure 05/01/2025 4:00 PM EDT Office Visit [facility] [address] [place] [address] Robbin Sánchez, DPM [address] [phone] [facility] Start: 04-20-2025 End: 04-20-2025 Patient encounter procedure 04/20/2025 12:45 PM EDT Office Visit [facility] [address] [place] [address] Robbin Sánchez, DPM [address] [place] [address] Arrived [facility] Comment on above: Arrived Start: 04-06-2025 End: 04-06-2025 Patient encounter procedure 04/06/2025 4:30 PM EDT Office Visit [facility] [address] [place] [address] Robbin Sánchez, DPM [address] [place] [address] Arrived [facility] Comment on above: Arrived Start: 04-06-2025 End: 04-06-2026 Creatinine [Mass/volume] in Serum or Plasma Creatinine, Serum Lab Routine Right foot pain Expected: 04/06/2025 (Approximate), Expires: 04/06/2026 [facility] Comment on above: Expected: 04/06/2025 (Approximate), Expi res: 04/06/2026 Start: 04-06-2025 End: 04-06-2026 MR Foot - right WO and W contrast IV MR foot right w and wo IV contrast Imaging STAT Right foot pain Expected: 04/06/2025, Expires: 04/06/2026 [facility] Work Phone: Comment on above: Expected: 04/06/2025, Expires: Start: 03-14-2025 End: 03-14-2025 Patient encounter procedure [facility] Start: 02-13-2025 End: 02-13-2025 Patient encounter procedure 02/13/2025 1:00 PM EDT Office Visit [facility] [address] [address] Tiffanie Casas MD [address] [facility] [address] [address] [facility] Start: 01-27-2025 Depression Monitoring Depression Monitoring [facility] Start: 11-15-2024 End: 11-15-2024 Patient encounter procedure 11/15/2024 2:45 PM EST Office Visit [facility] [address] [place] [phone] Felipe Adam MD [address] [place] [address] 6 mo [facility] Comment on above: 6 mo Start: 11-14-2024 End: 11-14-2024 Patient encounter procedure [facility] R Comment on above: Arrived Start: 11-11-2024 End: 11-11-2024 Patient encounter procedure 11/11/2024 1:00 PM EST Office Visit [facility] [address] [place] [address] Felipe Adam MD [address] [place] [address] 6 mo [facility] Comment on above: 6 mo Start: 09-24-2024 Screening for malignant neoplasm of cervix [facility] Start: 09-14-2024 End: 09-14-2024 Patient encounter procedure 09/14/2024 11:20 AM EST Office Visit [facility] [address] [facility] [address] [place] [phone] Fozia Meng IMPORT/EXPORT ANALYST [address] [phone] Arrived [facility] Comment on above: Arrived Start: 09-08-2024 DTaP/Tdap/Td vaccine (2 - Td or Tdap) DTaP/Tdap/Td vaccine (2 - Td or Tdap) [facility] Start: 09-08-2024 DTaP/Tdap/Td vaccine (2 - Td) DTaP/Tdap/Td vaccine (2 - Td) [place], [place] Start: 09-08-2024 Tetanus vaccination [facility] Start: 09-05-2024 End: 09-05-2024 Patient encounter procedure 09/05/2024 1:00 PM EST Office Visit [facility] [address] [facility] [address] [place] [phone] Tiffanie Casas MD [address] [facility] [address], [place] [phone] [facility] Start: 08-18-2024 End: 08-18-2024 Patient encounter procedure 08/18/2024 1:30 PM EST Office Visit [facility] [address] [facility] [address] [place] [address] Luis Mclean, PA-C [address] [facility] [address] [place], [place] [phone] 1 yr med chk [facility] Comment on above: 1 yr med k Start: 08-02-2024 End: 08-02-2024 Patient encounter procedure 08/02/2024 10:45 AM EDT Office Visit [facility] [address] [place] [phone] Cheryl Miles DO [address] [place] [address] [facility] Start: 07-11-2024 End: 07-11-2024 Telemedicine consultation with patient 07/11/2024 11:30 AM EDT Telemedicine [facility] [address] [facility] [address] [place] [phone] Janel Allen, IMPORT/EXPORT ANALYST [address] [facility] [address] [place] [address] [facility] 210 Start: 06-10-2024 End: 06-10-2024 Patient encounter procedure 06/10/2024 10:20 AM EDT Office Visit [facility] [address] [facility] [address] [place] [phone] Tiffanie Casas MD [address] [place] [address] Arrived [facility] Comment on above: Arrived Start: 06-05-2024 COVID-19 Vaccine ( season) COVID-19 Vaccine ( season) [facility] Start: 06-05-2024 COVID-19 Vaccine ( season) COVID-19 Vaccine ( season) [facility] Start: 06-05-2024 Influenza vaccination Influenza Vaccine (#1) [facility] Start: 2024 Screening for malignant neoplasm of colon [facility] Start: 05-17-2024 GFR test (Diabetes, CKD 3-4, OR last GFR 15-59) GFR test (Diabetes, CKD 3-4, OR last GFR 15-59) [facility] Start: 05-14-2024 Diabetes screen Diabetes screen [facility] Start: 05-12-2024 End: 05-12-2024 Patient encounter procedure 05/12/2024 11:00 AM EDT Office Visit [facility] PUL Part of [address] [address] Lina Echols MD [facility] [place] [address] BUCK (obstructive sleep apnea) [facility] PUL Part of [facility] Comment on above: BUCK (obstructive sleep apnea) Start: 05-11-2024 Lipid panel Lipid screen [place] Start: 05-11-2024 Lipid screen Lipid screen [place] Start: 05-05-2024 Influenza vaccination Flu vaccine (#1) [facility] Start: 03-23-2024 Depression Monitoring Depression Monitoring [facility] Start: 02-06-2024 GFR test (Diabetes, CKD 3-4, OR last GFR 15-59) GFR test (Diabetes, CKD 3-4, OR last GFR 15-59) [facility] Start: 02-06-2024 Hemoglobin A1c measurement A1C test (Diabetic or Prediabetic) [facility] Start: 08-13-2023 End: 08-13-2023 Patient encounter procedure [facility] Start: 06-22-2023 End: 06-22-2023 Patient encounter procedure 06/22/2023 11:15 AM EDT Office Visit [address] [phone] Felipe Adam MD [address] [place] [address] [facility] Start: 06-05-2023 Influenza vaccination Sequential Influenza Vaccine (Season Ended) [facility] Start: 05-05-2023 Influenza vaccination [facility] Start: 04-14-2023 End: 04-14-2023 Patient encounter procedure 04/14/2023 Office Visit Family Medicine Felipe Adam MD [address] [place] [address] [facility] Start: 04-12-2023 Hemoglobin A1c measurement A1C test (Diabetic or Prediabetic) [facility] Start: 04-11-2023 Depression Monitoring Depression Monitoring [facility] Start: 04-11-2023 History and physical examination, annual for health maintenance Wellness Visit [facility] Start: 12-25-2022 End: 12-25-2022 Patient encounter procedure 12/25/2022 Office Visit Infectious Diseases Dav Hartman MD [address] [address] [facility]. Start: 09-24-2022 Diabetes screen Diabetes screen [place] Start: 08-07-2022 End: 08-07-2022 Patient encounter procedure 08/07/2022 Office Visit Urology Luis Mclean, PA-C [address] [facility] [address] [address] [facility] Start: 07-15-2022 End: 07-15-2022 Nursing evaluation of patient and report 07/15/2022 Nurse Only Family Medicine [facility] Start: 07-09-2022 End: 07-09-2022 Patient encounter procedure 07/09/2022 Appointment IP Unit Samantha Lino, RD, LD [facility] Start: 06-05-2022 Influenza vaccination [facility] Start: 05-20-2022 Creatinine measurement [facility] Start: 05-20-2022 Potassium [Moles/volume] in Serum or Plasma Potassium [employer] Start: 05-20-2022 Potassium monitoring Potassium monitoring [facility] [employer] Start: 05-14-2022 Creatinine measurement Creatinine monitoring [facility] [employer] Work Phone: Start: 05-14-2022 [facility] Start: 05-05-2022 Influenza vaccination Flu vaccine (#1) [facility] Start: 03-20-2022 Screening for malignant neoplasm [facility] cervix [facility] [facility] Start: 02-05-2022 End: 02-05-2022 Patient encounter procedure 02/05/2022 Appointment Physical Therapy Christel Donohue PT [facility] Start: 02-03-2022 End: 02-03-2022 Patient encounter procedure [facility] Start: 01-30-2022 End: 01-30-2022 Patient encounter procedure [facility] Start: 01-29-2022 End: 01-29-2022 Patient encounter procedure 01/29/2022 Appointment Physical Therapy Beverly Rangel TAG STRINGER [facility] Start: 01-27-2022 End: 01-27-2022 Patient encounter procedure 01/27/2022 Appointment Physical Therapy Christel Donohue PT [facility] Start: 01-24-2022 End: 01-24-2022 Patient encounter procedure 01/24/2022 Appointment Physical Therapy Vanessa Garcia PT [facility] Start: 01-22-2022 End: 01-22-2022 Patient encounter procedure 01/22/2022 Appointment Physical Therapy Beverly Rangel TAG [employer]ER [facility] Start: 01-17-2022 End: 01-17-2022 Patient encounter procedure 01/17/2022 Appointment Physical Therapy Beverly Rangel TAG STR[employer]ER [facility] Start: 01-10-2022 End: 01-10-2022 Patient encounter procedure 01/10/2022 Appointment Physical Therapy Christel Donohue PT [facility] Start: 01-08-2022 End: 01-08-2022 Patient encounter procedure 01/08/2022 Appointment Physical Therapy Beverly Rangel PTA [facility] Start: 01-02-2022 End: 01-02-2022 Patient encounter procedure 01/02/2022 Appointment Occupational Therapy Judi Marie OTA [address] [place] [address] [facility] Start: 12-31-2021 Diabetes screen Diabetes screen [facility] [place], Start: 12-31-2021 End: 12-31-2021 Patient encounter procedure [facility] Start: 12-30-2021 End: 12-30-2021 Patient encounter procedure 12/30/2021 Appointment Occupational Therapy Cheryl Herman OT [facility] Start: 12-27-2021 End: 12-27-2021 Patient encounter procedure 12/27/2021 Appointment Occupational Therapy Eve Gaspar OTA [facility] Start: 11-14-2021 End: 11-14-2021 Patient encounter procedure 11/14/2021 Office Visit Family Medicine Felipe Adam MD [address] [place] [address] [phone] [facility] Start: 10-29-2021 Depression Monitoring Depression Monitoring [employer] [facility] Start: 09-16-2021 Creatinine measurement Creatinine monitoring [employer] Phone: Start: 09-16-2021 Potassium monitoring Potassium monitoring [employer] Phone: Start: 08-01-2021 End: 08-01-2021 Patient encounter procedure 08/01/2021 Office Visit Urology Lita Weeks MD [address] [facility], [address] [place], [place] [id number] [facility] Start: 06-05-2021 Influenza vaccination [employer] [facility] Start: 05-25-2021 Creatinine [facility] [place] Start: 05-25-2021 HbA1c (Bld) [Mass fraction] A1C test (Diabetic or Prediabetic) [facility] [place] Start: 05-25-2021 Hemoglobin A1c measurement A1C test (Diabetic or Prediabetic) [employer] Phone: Start: 05-25-2021 Potassium monitoring Potassium monitoring [place] Start: 11-13-2020 End: 11-13-2020 Office Visit 11/13/2020 Office Visit Family Medicine BackFelipe MD [address] [place] [address] [phone] [facility] Start: 11-02-2020 Potassium monitoring Potassium monitoring [place] Start: 10-23-2020 End: 10-23-2020 Office Visit 10/23/2020 Office Visit Infectious Diseases Dav Hartman MD [address] [facility] [place] [address] [phone] [facility] Start: 09-24-2020 HbA1c (Bld) [Mass fraction] A1C test (Diabetic or Prediabetic) [place] Start: 06-17-2020 Creatinine measurement Creatinine monitoring [facility] [place] Start: 06-17-2020 Creatinine monitoring Creatinine monitoring [place], [place] Start: 06-17-2020 Potassium monitoring Potassium monitoring [place] Start: 06-12-2020 End: 06-12-2020 Office Visit 06/12/2020 Office Visit Infectious Diseases Dav Hartman MD [address] [facility] [place] [address] [phone] [facility] Start: 06-05-2020 Influenza vaccination Flu vaccine (#1) [place] Start: 03-20-2020 Cervical cancer screen Cervical cancer screen [place] Start: 03-20-2020 Screening for malignant neoplasm of cervix [facility] Start: 11-01-2019 End: 11-01-2019 Office Visit 11/01/2019 Office Visit Infectious Diseases Dav Hartman MD [address] [facility] [place] [address] [phone] [facility] Start: 07-28-2019 End: 07-28-2019 Office Visit 07/28/2019 Office Visit Infectious Diseases Dav Hartman MD [address] [facility] [place] [address] [phone] [facility] Start: 06-27-2019 End: 06-27-2019 Nurse Only 06/27/2019 Nurse Only Family Medicine [facility] Start: 06-05-2019 Influenza vaccination Flu vaccine (#1) [place] Start: 06-05-2019 Influenza vaccination given SEQUENTIAL INFLUENZA VACCINE (Season Ended) [facility] Start: 2019 Screening for malignant neoplasm of breast [facility] Start: 06-05-2018 Influenza vaccination INFLUENZA VACCINE (#1) [facility] Work Phone: Start: 03-23-2018 End: 03-23-2018 Ambulatory [facility] Start: 2009 Screening for malignant neoplasm of cervix HPV (without or with Pap) [facility] Start: 2000 Screening for malignant neoplasm of cervix PAP SMEAR DISCUSSION [facility] Work Phone: Start: 1998 Hepatitis B vaccine (1 of 3 - 19+ 3-dose series) Hepatitis B vaccine (1 of 3 - 19+ 3-dose series) [facility] Start: 1998 Third diphtheria, tetanus and acellular pertussis (DTaP) vaccination TDAP (ADULT) [facility] Work Phone: Start: 1997 Hepatitis C screening Hepatitis C Screening [facility] Start: 1997 Tetanus vaccination TETANUS [facility] Work Phone: Start: 1995 COVID-19 Vaccine (1) COVID-19 Vaccine (1) [facility] Work Phone: Start: 1994 HIV screen HIV screen [place], [place] Start: 1994 HIV screening HIV screen [facility] Start: 1992 HIV screening HIV SCREENING DISCUSSION [facility] Work Phone: Start: 1991 COVID-19 Vaccine (1) COVID-19 Vaccine (1) [employer] Phone: Start: 1991 Depression Monitoring Depression Monitoring [employer] [facility] Start: 1991 Depression screening using PHQ-9 (Patient Health Questionnaire 9) score [facility] Start: 1989 Urine screening for protein Urine Microalbumin [facility] Start: 1985 Pneumococcal Vaccine: Ped or At-Risk (1 - PCV) Pneumococcal Vaccine: Ped or At-Risk (1 - PCV) [facility] Start: 1984 COVID-19 Vaccine (1) COVID-19 Vaccine (1) [employer] [facility] Start: 1982 History and physical examination, annual for health maintenance Wellness Visit [facility] Start: 1979 COVID-19 Vaccine (#1) COVID-19 Vaccine (#1) [facility] [employer] Start: 1979 Hepatitis B vaccine (1 of 3 - 3-dose series) Hepatitis B vaccine (1 of 3 - 3-dose series) [facility] [employer] Start: 1979 Screening for malignant neoplasm of colon [facility] End: 02-13-2021 COVID-19 COVID-19 Lab Routine Suspected COVID-19 virus infection 1 Occurrences starting 02/13/2021 until 02/13/2021 [employer] Phone: Comment on above: 1 Occurrences starting 02/13/2021 until 02/13/2021 COVID-19 COVID-19 Lab Rou luis Suspected COVID-19 virus infection 02/13/2021 3:06 PM EDT [employer] Phone: End: 08-08-2020 COVID-19 Ambulatory COVID-19 Ambulatory Lab Routine SOB (shortness of breath) 1 Occurrences starting 08/08/2020 until 08/08/2020 [facility] [place] Comment on above: 1 Occurrences starting 08/08/2020 until 08/08/2020 COVID-19 Ambulatory COVID-19 Amb ulatory Lab Routine SOB (shortness of breath) 08/08/2020 4:02 PM EST [facility] [place], [place] End: 05-20-2021 Creatinine [Mass/volume] in Urine Creatinine, Random Urine Lab Routine Once for 1 Occurrences starting 05/20/2021 until 05/20/2021 [employer] Phone: Comment on above: Once for 1 Occurrences starting 05/20/20 21 until 05/20/2021 Creatinine [Mass/vol ume] in Urine Creatinine, Random Urine Lab Routine 05/20/2021 7:57 PM EDT [employer] Phone: End: 04-13-2021 Culture, Urine Culture, Urine Microbiology Routine Acute cystitis with hematuria 1 Occurrences starting 04/13/2021 until 04/13/2021 [employer] Phone: Comment on above: 1 Occurrences starting 04/13/2021 until 04/13/2021 Culture, Urine [employer] Phone: End: 05-27-2021 Culture, Urine Culture, Urine Microbiology Routine Difficult or painful urination 1 Occurrences starting 05/27/2021 until 05/27/2021 [employer] Phone: Comment on above: 1 Occurrences starting 05/27/2021 until 05/27/2021 End: 06-11-2021 Culture, Urine Culture, Urine Microbiology Routine Acute cystitis with hematuria Recurrent UTI 1 Occurrences starting 06/11/2021 until 06/11/2021 [employer] Phone: Comment on above: 1 Occurrences starting 06/11/2021 until 06/11/2021 End: 07-11-2021 Culture, Urine Culture, Urine Microbiology Routine Frequent UTI Urinary urgency Urinary frequency 1 Occurrences starting 07/11/2021 until 07/11/2021 [employer] Phone: Comment on above: 1 Occurrences starting 07/11/2021 until 07/11/2021 End: 08-01-2021 Culture, Urine Culture, Urine Microbiology Routine Frequent UTI Urinary urgency Urinary frequency 1 Occurrences starting 08/01/2021 until 08/01/2021 [employer] Phone: Comment on above: 1 Occurrences starting 08/01/2021 until 08/01/2021 End: 04-28-2022 Culture, Urine Culture, Urine Microbiology Routine Acute cystitis with hematuria 1 Occurrences starting 04/28/2022 until 04/28/2022 [employer] Phone: Comment on above: 1 Occurrences starting 04/28/2022 until 04/28/2022 End: 02-05-2023 Culture, Urine [facility] Phone: Comment on above: 1 Occurrences starting 02/05/2023 until 02/05/2023 End: 04-04-2025 Culture, Wound (with Gram Stain) [employer] Comment on above: One Time for 1 Occurrences starting 10/2024 until 04/04/2025 End: 02-15-2025 DBT Breast - bilateral screening [employer] Comment on above: 1 Occurrences starting 02/15/2025 until 02/15/2025 End: 04-12-2022 Hemoglobin A1c/Hemoglobin.total in Blood [employer] Phone: Comment on above: 1 Occurrences starting 04/12/2022 until 04/12/2022 End: 02-05-2023 Hemoglobin A1c/Hemoglobin.total in Blood [employer] Phone: Comment on above: Once for 1 Occurrences starting 02/06/20 23 until 02/05/2023 End: 08-29-2019 Home Sleep Study Home Sleep Study Sleep Center Routine One Time for 1 Occurrences starting 08/29/2019 until 08/29/2019 [facility] [place], [place] Comment on above: One Time for 1 Occurrences starting 08/06 until 08/29/2019 End: 09-24-2019 Methylmalonic Acid, Serum Methylmalonic Acid, Serum Lab Routine Once for 1 Occurrences starting 09/24/2019 until 09/24/2019 [employer] Phone: Comment on above: Once for 1 Occurrences starting 09/24/20 19 until 09/24/2019 Methylmalonic Acid, Serum Methyl malonic Acid, Serum Lab Routine 09/24/2019 9:33 AM [facility] Track Phone: End: 09-24-2019 Nuclear Ab [Titer] in Serum by Immunofluorescence ALICJA Lab Routine Once for 1 Occurrences starting 09/24/2019 until 09/24/2019 [employer] Phone: Comment on above: Once for 1 Occurrences starting 09/24/20 until 09/24/2019 Nuclear Ab [Titer] i n Serum by Immunofluorescence ALICJA Lab Routine 09/24/2019 9:33 AM [employer] Track Phone: End: 05-20-2021 Protein, urine, random Protein, urine, random Lab Routine Once for 1 Occurrences starting 05/20/2021 until 05/20/2021 [employer] Phone: Comment on above: Once for 1 Occurrences starting 05/20/20 until 05/20/2021 Protein, urine, random Protein, urine, random Lab Routine 05/20/2021 7:57 PM EDT [employer] Phone: End: 12-14-2019 Sedimentation Rate Sedimentation Rate Lab Routine MRSA (methicillin resistant Staphylococcus aureus) septicemia (HCC) 1 Occurrences starting 12/14/2019 until 12/14/2019 [place] Comment on above: 1 Occurrences starting 12/14/2019 until 12/14/2019 Sedimentation Rate Sedimentation Rate Lab Routine MRSA (methicillin resistant Staphylococcus aureus) septicemia (HCC) 12/14/2019 12:39 PM EDT [place] End: 09-24-2019 Sjogrens syndrome-A extractable nuclear antibody Sjogrens syndrome-A extractable nuclear antibody Lab Routine Once for 1 Occurrences starting 09/24/2019 until 09/24/2019 [employer] Phone: Comment on above: Once for 1 Occurrences starting 09/24/20 until 09/24/2019 Sjogrens syndrome-A extractable nuclear antibody Sjogrens syndrome-A extractable nuclear antibody Lab Routine 09/24/2019 9:33 AM [employer] Track Phone: End: 09-24-2019 Sjogrens syndrome-B extractable nuclear antibody Sjogrens syndrome-B extractable nuclear antibody Lab Routine Once for 1 Occurrences starting 09/24/2019 until 09/24/2019 [employer] Phone: Comment on above: Once for 1 Occurrences starting 09/24/20 until 09/24/2019 Sjogrens syndrome-B extractable nuclear antibody Sjogrens syndrome-B extractable nuclear antibody Lab Routine 09/24/2019 9:33 AM [facility] Track Phone: End: 09-12-2019 Sleep Study with PAP Titration Sleep Study with PAP Titration Sleep Center Routine One Time for 1 Occurrences starting 09/12/2019 until 09/12/2019 [employer] Phone: Comment on above: One Time for 1 Occurrences starting 06/2019 until 09/12/2019 End: 09-24-2019 Vitamin B6 Vitamin B6 Lab Routine Once for 1 Occurrences starting 09/24/2019 until 09/24/2019 [employer] Phone: Comment on above: Once for 1 Occurrences starting 09/24/20 until 09/24/2019 Vitamin B6 Vitamin B6 Lab R outine 09/24/2019 9:33 AM [facility] Track Phone: XR Cervical spine 4 or 5 Views XR cervical spine complete 4 to 5 views Imaging Routine Cervical paraspinal muscle spasm 05/24/2025 12:45 PM EDT [facility] Immunizations Immunization Date Immunization Notes Care Provider Yair dai 09-08-2014 tetanus toxoid, redu gaby diphtheria toxoid, and acellular pertussis vaccine, adsorbed Felipe Back [place] Payers Date Payer Category Payer Managed Care HMO (unspecified) [facility] HMO/CHOICE PLUS/DULCE/DULCE PLUS [id number] 2024 Private Health Insurance [id number]. [id number] 2024 Private Health Insurance [id number]. [id number] 2024 Self-pay [id number] [phone] [id number] 2017 Blue Cross Blue Shie ld (Indemnity or Managed Care) - Out of State BCBS OUT OF STATE [facility] [id number]. [id number] 2017 Unknown 2016 Unknown [id number] 2016 Unknown [id number] 1.2.840.936402.1.13.239.2.7. [id number] 2014 Medicaid [id number] 2.16.840.1.382969.3.249.13 2014 Medicaid [employer] MEDICA[employer] MEDICAID xxxxxxxxxxx 2014-Present xxxxxxxxxxx 1.2.840.913391.1.13.385.2.7. [id number] 1979 Unknown [id number] 2.16.840.1.888638.3.579.2.35 6 1979 Unknown [id number] 2.16.840.1.957712.3.579.2.35 6 1979 Unknown [id number] 2.16.840.1.772634.3.579.2.71 7 1979 Unknown [id number] 2.16.840.1.241246.3.579.2.71 7 1979 Unknown [id number] 2.16.840.1.470841.3.579.2.17 5 1979 Unknown [id number] 2.16.840.1.289827.3.579.2.90 3 1979 Unknown [id number] 2.16.840.1.476143.3.579.2.18 2 1979 Unknown [id number] 2.16.840.1.770531.3.579.2.18 5 1979 Unknown [id number] 2.16.840.1.408706.3.579.2.90 3 1979 Unknown [id number] 2.16.840.1.810485.3.579.2.59 3 1979 Unknown [id number] 2.16.840.1.450909.3.579.2.59 3 1979 Unknown [id number] 2.16.840.1.037542.3.579.2.59 3 1979 Unknown [id number] 2.16.840.1.468963.3.579.2.90 3 1979 Unknown [id number] 2.16.840.1.431959.3.579.2.90 3 1979 Unknown [id number] 2.16.840.1.084837.3.579.2.72 7 1979 Unknown [id number] 2.16.840.1.409754.3.579.2.12 59 1979 Unknown [id number] 2.16.840.1.305059.3.579.2.12 59 1979 Unknown [id number] 2.16.840.1.567992.3.579.2.12 59 1979 Unknown [id number] 2.16.840.1.866172.3.579.2.12 59 1979 Unknown [id number] 2.16.840.1.242617.3.579.2.12 59 1979 Unknown [id number] 2.16.840.1.456652.3.579.2.12 59 1979 Unknown [id number] 2.16.840.1.554990.3.579.2.12 59 1979 Unknown [id number] 2.16.840.1.377442.3.579.2.12 59 1979 Unknown [id number] 2.16.840.1.114695.3.579.2.12 59 1979 Unknown [id number] 2.16.840.1.667294.3.579.2.12 59 1979 Unknown [id number] 2.16.840.1.949674.3.579.2.12 59 1979 Unknown [id number] 2.16.840.1.075827.3.579.2.17 4 1979 Unknown [id number] 2.16.840.1.995896.3.579.2.17 4 1979 Unknown [id number] 2.16.840.1.119904.3.579.2.17 4 1979 Unknown [id number] 2.16.840.1.712774.3.579.2.17 4 1979 Unknown [id number] 2.16.840.1.088854.3.579.2.17 4 1979 Unknown [id number] 2.16.840.1.120448.3.579.2.17 4 1979 Unknown [id number] 2.16.840.1.499588.3.579.2.17 4 1979 Unknown [id number] 2.16.840.1.857508.3.579.2.17 4 1959 Unknown [id number] 1.2.840.420776.1.13.239.2.7. 3.865882.315 Unknown 114 Unknown [id number] 2.16.840.1.055760.3.579.2.53 1 Social History Date Type Detail Facility Start: 05-01-2015 End: 08-13-2023 Tobacco smoking status NHIS Never smoker [facility] Work Phone: Start: 1980 Sex Assigned At Not on file O [facility] Work Phone: Start: 05-27-2019 End: 11-15-2024 Alcohol intake No [place] Start: 12-13-2019 End: 04-18-2025 Alcohol intake Current non-drinker of alcohol (finding) [place] Start: 12-09-2019 End: 05-13-2021 History SDOH Financial 4 [place] Start: 12-09-2019 End: 05-20-2022 History SDOH Food Worry 1 [place] Start: 12-09-2019 History SDOH Transpo rt Med 2 [place] Start: 05-11-2020 End: 08-13-2023 Tobacco use and exposure Never used [place] Start: 10-30-2021 End: 03-02-2023 Exposure to SARS-CoV-2 (event) Not sure [place] Start: 1980 Sex Assigned At Female [facility] Start: 05-20-2022 History SDOH Financial 3 [facility] Work Phone: Start: 01-06-2023 End: 11-15-2024 History of Social function [facility] How hard is it for y ou to pay for the very basics like food, housing, medical care, and heating Not very hard [employer] Patient Health Questionnaire 9 item (PHQ-9) total score [Reported] 0 [employer] (I/We) worried wheth er (my/our) food would run out before (I/we) got money to buy more. Never true [employer] At any time in the p ast 12 months, were you homeless or living in senior living [including now]? No [employer] Start: 10-09-2020 Gender identity Identifies as female gender (finding) [employer] Start: 10-09-2020 Sexual orientation Heterosexual (fin artur) [employer] [facility] How hard is it for y ou to pay for the very basics like food, housing, medical care, and heating Somewhat hard [employer] Start: 06-10-2024 End: 04-06-2025 Alcoholic beverage intake Lifetime non-drinker (finding) [facility] Start: 08-19-2023 Alcohol Comment Caffeine Intak e: Yes, pop [facility] Start: 11-14-2012 Sex Female (finding) [employer] How often to you hav e a drink containing alcohol? Never [employer] Start: 04-20-2025 End: 05-24-2025 Alcoholic beverage intake Ex-drinker (finding) [facility] Start: 04-20-2025 Alcohol Comment 1-2 times a year [facility] NEGATED: Highlighted rowStart: NINF History of tobacco use Passive smoker [employer] [facility] Functional Status Date Assessment Result [facility] [employer] Clinical Notes 12-23-2021 to 05-24-2025 Jennie Van APRN-GRETEL - 05/24/2025 11:30 AM EDTTelephone Encounter - Paresh Cayr - 05/23/2025 9:36 AM EDTTelephone Encounter - [...] absent. Ankle clonus absent. Left pathological reflexes: Gyoo's absent. Ankle clonus absent. Coordination Luonms-hp-odgv, rapid alternating movements and jqzq-iw-spjg normal bilaterally without dysmetria. Gait Casual gait: [...] current management plan documented in this encounter [facility] 05-23-2025 Telephone encount er Note Patient same day canceled due to her foot being in a boot and cannot drive by herself. [facility] 05-23-2025 Miscellaneous Notes Formattin g of this note might be different from the original. Patient same day canceled due to her foot being in a boot and cannot drive by herself. documented in this encounter [facility] 04-20-2025 History of Presen t [...] visit with xra documented in this encounter [facility] 04-14-2025 Evaluation note Diagnosis Chronic [...] stage 3a (HCC) documented in this encounter [facility]-10-2025 Evaluation note* Diagnosis Chronic renal impairment, stage 3a (HCC)- Primary Depression with anxiety Dysthymic disorder Gastroesophageal reflux disease without esophagitis Esophageal reflux Vitamin D deficiency Unspecified vitamin D deficiency Mixed hyperlipidemia BUCK on CPAP Obstructive sleep apnea (adult) (pediatric) Restless legs Restless legs syndrome (RLS) Hyperglycemia Other abnormal glucose Pain in right foot Pain in limb documented in this encounter [facility]07-03-2025 History of Present illness Narrative* Robbin Sánchez DPM - 04/06/2025 4:30 PM EDT Celina Gaspar is a 44 y.o. female presents with chief complaint of Foot Ulcer (RT toe 2 ulcer) HPI: HPI Pt has ulcer on RT toe 2 for about 2 wks. She went to [facility] ER on 04-04-25, xrays, culture and [...] toe or midfoot but also Charcot MRI [facility] 04-11-25 11:30 AM, arrive at 11:00 AM. Pt notified. documented in [facility] [id number] Evaluation note* Diagnosis Chronic renal impairment, stage 3a (HCC)- Primary Depression with anxiety Dysthymic disorder Gastroesophageal reflux disease without esophagitis Esophageal reflux Vitamin D deficiency Unspecified vitamin D deficiency Mixed hyperlipidemia BUCK on CPAP Obstructive sleep apnea (adult) (pediatric) Restless legs Restless legs syndrome (RLS) Hyperglycemia Other abnormal glucose Pressure injury of deep tissue of toe, unspecified laterality- Primary documented in this encounter [facility] History of Present illness Narrative* [...] in about 6 weeks (around 04/25/2025), or 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 Lab Frequency Next Occurrence Therapeutic injection carpal [...] vs 2.8, all supine; PLMI=3.6, PLMAI=0.6 ([place], dike) - MAINE=6.4, position not given PAPT ([place] - AHI=1.8 @ 12 with REM; [...] ? [address] ? [place], [place] [address] ? ? fax Neurology ? Clinical Neurophysiology ? Epilepsy ? Sleep Disorders ? Clinical Informatics documented in this encounterGold[facility] [id number] Evaluation note* Diagnosis Chronic renal impairment, stage [...] Other screening mammogram documented in this encounter [facility] History of Present illness Narrative* [...] Depression: Not at risk (11/15/2024) Received from [facility] PHQ-2 PHQ-9 Total Score: [...] reflexes: Goyo's absent. Ankle clonus absent. Coordination Byqzqa-ya-emxe, rapid alternating movements and tcot-wy-rndo normal bilaterally without dysmetria. Gait Normal casual, toe, heel and tandem gait. Romberg is absent. 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 She continues to have significant discomfort in her feet to interrupt her sleep. This is likely worsened by Uyqbtlt-Tgvvk-Lannx for which she had surgery in February [...] She will take this to [facility] in [place]. We will get the original sleep study from [facility] for review. She is following with Dr. Block for sleep medicine. EVALUATION: PSG 03/2024 - CPAP [id number] w/heated humidification EMG of BUE 11/25 showed [...] by Tiffanie Casas MD documented in this encounterGolden Valley Memorial [id number] History of Present illness Narrative* Lynn Block [...] Out of bed 0800. Noct oxim [facility] (BMI=39.1) - AHI=5.3, REM=21 vs 2.8, all supine; PLMI=3.6, PLMAI=0.6 ([place], dike) - MAINE=6.4, position not given PAPT ([place]/Angelina) [...] in all four extremities, including at least repair technician, finger abductors, biceps, triceps, deltoid, toe flexors [...] ? [address] ? [place], [place] [address] ? ? fax Neurology ? Clinical Neurophysiology ? Epilepsy ? Sleep Disorders ? Clinical Informatics documented in this encounterGolden Valley Memorial HospitalLimbraahrj50-85-0786 Telephone encounter Note* Telephone Encounter - Janel Allen NP - 11/02/2024 9:16 PM EST Pharmacy sends medication clarification for nortriptyline as there are two directions on one received. Per ONUR Gunderson plan increase nortriptyline 50 mg 2 daily/bedtime total of 100 mg. NOMS [id number] Miscellaneous Notes* Telephone Encounter - Janel Allen NP - 11/02/2024 9:16 PM EST Pharmacy sends medication clarification for nortriptyline as there are two directions on one received. Per ONUR Gunderson plan increase nortriptyline 50 mg 2 daily/bedtime total of 100 mg. documented in this encounterGolden Valley Memorial HospitalWvqopvdlmc49-57-[address] ([address]) [facility] [address] MEDICAL OFFICE [facility] [address] Dept: [phone] Loc: [phone] MD Celina Browne 44 y.o. female Patient [...] Resource Strain: Medium Risk (05/08/2024) Received from [facility] Overall Financial Resource Strain (CARDIA) Difficulty of Paying Living Expenses: Somewhat hard Food Insecurity: No Food Insecurity (05/08/2024) Received from [facility] Hunger Vital Sign Worried About Running Out of Food in the Last Year: Never true Ran Out of Food in the Last Year: Never true Transportation Needs: Unknown (05/08/2024) Received from [facility] PRAPARE - Transportation Lack of Transportation (Non-Medical): No Housing Stability: Unknown (05/08/2024) Received from [facility] Housing Stability Vital Sign Unstable Housing [...] of submandibular glands, clear salivary flow from [place]'s ducts, no stones of [place]'s ducts Temporomandibular Joint: no crepitus with motion, no tenderness on palpation, no mayo (more content not included)...[facility] [id number] History of Present illness Narrative* Sherman Adair MD - 10/11/2024 10:05 AM EST [facility] [address] ([address]) [facility] [address] [facility] [address] Dept: [phone] Loc: [phone] MD Celina Browne Dieudonne Gaspar 44 y.o. [...] Resource Strain: Medium Risk (05/08/2024) Received from [facility] Overall Financial Resource Strain (CARDIA) Difficulty of Paying Living Expenses: Somewhat hard Food Insecurity: No Food Insecurity (05/08/2024) Received from [facility] Hunger Vital Sign Worried About Running Out of Food in the Last Year: Never true Ran Out of Food in the Last Year: Never true Transportation Needs: Unknown (05/08/2024) Received from [facility] PRAPARE - Transportation Lack of Transportation (Non-Medical): No Housing Stability: Unknown (05/08/2024) Received from [facility] Housing Stability Vital Sign Unstable Housing [...] subma ndibular glands, clear salivary flow from [place]'s ducts, no stones of [place]'s ducts Temporomandibular Joint: no crepitus with motion, [...] Hematological: Negative. Psychiatric/Behavioral: Negative. documented in this [id number] Telephone encounter Note* Telephone Encounter - Gwen Fan - 09/14/2024 2:18 PM EST Voicemail Received: Our numbers [phone] actually have a question regarding a prescription that was prescribed today, If someone could please call me back. Thank you. Bye. [facility] [id number] Miscellaneous Notes* Telephone Encounter - Gwen Fan - 09/14/2024 2:18 PM EST Voicemail Received: Our numbers [phone] actually have a question regarding a prescription that was prescribed today, If someone could please call me back. Thank you. Mary Carmene. documented in this encounterGolden Valley Memorial [id number] Miscellaneous Notes* Telephone Encounter - My Johnson - 08/11/2024 12:03 PM EST Patient called and requested refill of Lyrica to be sent to [facility] in [place]. documented in this [facility]11-07-2024 Telephone encounter Note* Telephone Encounter - My Alex - 08/11/2024 12:03 PM EST Patient called and requested refill of Lyrica to be sent to [facility] in [place]. [facility] [id number] History of Present illness Narrative* Tequila Obando [...] Grandfather Depression: At risk (01/28/2024) Received from [facility] PHQ-2 PHQ-9 Total Score: [...] reflexes: Goyo's absent. Ankle clonus absent. Coordination Jxeqrk-nj-iqdn, rapid alternating movements and chob-pz-brxt normal bilaterally without dysmetria. Gait Normal casual, [...] Follow up 3 months. documented in this encounterGolden Valley Memorial [id number] History of Present illness Narrative* Cheryl Miles [...] was counseled on the risks of stroke, PR, and sudden with BUCK, along with the [...] to clinic: 3-6 months documented in this encounterGolden Valley Memorial HospitalUvormxfqfe04-15-3716 History of Present illness Narrative* MASSIMO Shook [...] 2022. Shefollows with an outside provider in [place] and was immobilized for an extended period [...] Foot & Ankle Surgery documented in this [id number] NotePROCEDURE: XR ANKLE LT MIN 3 V, [...] Electronically authenticated by: PIPER MERCEDES Date: 2023-01-29 07:05[facility]04-27-2023 NotePROCEDURE: XR ANKLE LT MIN 3 [...] Electronically authenticated by: PIPER MERCEDES Date: 2023-01-29 07:05[facility]10-05-2022 History of Present illness Narrative* Samantha [...] BMR: 1573 calories Est. total calorie needs: ~4962-7715 Lab Results Component Value Date/Time TRIG 460 [...] bread Supper: pork chop or chicken, homemade kinyarwanda fries, mashed, or baked potato with broccoli [...] duration: 55 minutes. documented in this encounterBON AURORA WEST HOSPITALRerecipe [facility] [employer] Work Phone: 1(452) 560-595105-04-2022 History of Present illness Narrative* Christel Donohue, PT - 02/05/2022 9:45 AM EDT [facility] Date: 02/05/2022 Patient Name: [place] Gaspar : 1980 Pt No Showed Appt- Follow up call, left message on voicemail that patient discharged, but to call if has questions or concerns. Christel Donohue, PT Date: 02/05/2022 documented in this [facility] Phone: [phone] Hospital course Narrative* Christel Donohue, PT - [...] Date: 02/05/2022 documented in this [facility] Phone: [phone]) 224-424605-02-2022 History of Present illness Narrative* Jerica Melgar - 02/03/2022 10:30 AM EDT [facility] Date: 02/03/2022 Patient Name: Celina Gaspar : 1980 Pt Cancelled Appt due to no reason for cancel. Jerica Melgar Date: 02/03/2022 documented in this [facility] hospital[facility] Work Phone: [phone]) 698-776804-27-2022 History of Present illness Narrative* Beverly Rangel, TAG STRINGER - 01/29/2022 9:00 AM EDT Images from [...] Increase trunk ROM B rotation WFL-Not Met Scientific Photographer Goals - Time Frame for buttermaker continuous churn goals : 10 Scientific Photographer Goals Time Frame for alf goals : 10 alf goal 1: Decrease pain low back 2/10 at worst x3 days for completing normal activities alf goal 2: Patient to report 50% decrease in radicular symptoms L LE Post Treatment Pain: 5/10 Time In: 0859 Time Out: 0947 Timed Code Treatment Minutes: 48 Minutes Total Treatment Time: 48 Minutes Beverly Gutiérrez Rangel, TAG STRINGER Date: 01/29/2022 documented in this [place] [facility] Work Phone: 1(688) 359-648204-25-2022 History of Present illness Narrative* Christel Donohue, PT - 01/27/2022 3:45 PM EDT Images from the original note were not included. [facility] Outpatient [facility] Therapy Daily Note Date: 01/27/2022 Patient Name: Celina Gaspar : 1980 (41 y.o.) Referring Practitioner: iLliane Sawyer APRN, CNP Referral Date : 12/19/21 [...] Increase trunk ROM B rotation WFL-Not Met Scientific Photographer Goals - Time Frame for alf goals : 10 [facility] Goals Time Frame for buttermaker continuous churn goals : 10 alf goal 1: Decrease pain low back 2/10 at worst x3 days for completing normal activities alf goal 2: Patient to report 50% decrease in radicular symptoms L LE Post Treatment Pain: 4/10 Time In: 15:50 Time Out : 16:19 Timed Code Treatment Minutes: 34 Minutes Total Treatment Time: 34 Minutes Christel Donohue, PT Date: 01/27/2022 documented in this [facility] hospitalU [employer] Phone: [phone]) 654-408704-22-2022 History of Present illness Narrative* Vanessa Garcia, [...] Care Facility Goals - Time Frame for alf goals : 10 [facility] Goals Time Frame for buttermaker continuous churn goals : 10 alf goal 1: Decrease pain low back 2/10 at worst x3 days for completing normal activities buttermaker continuous churn goal 2: Patient to report 50% decrease in radicular symptoms L LE Post Treatment Pain: 5/10 Time In: 0952 Time Out: 1030 Timed Code Treatment Minutes: 38 Minutes Total Treatment Time: 38 Minutes Vanessa Garcia, THERESE Date: 01/24/2022 documented in this [facility] Phone: [phone]) [phone] History of Present illness Narrative* Beverly Rangel, JENNIFER - 01/22/2022 4:45 PM EDT [facility] Date: 01/22/2022 Patient Name: [place]ina Gaspar : 1980 Patient did not show up for her appointment. Message left on answering machine with a reminder of her next appointment on Thursday. Beverly Rangel TAG STRINGER Date: 01/22/2022 documented in this [facility] Phone: [phone]) 342-983104-15-2022 History of Present illness Narrative* Beverly Rangel, TAG STRINGER - 01/17/2022 10:30 AM EDT Images from the original note were not included. [facility] Outpatient Physical Therapy Daily Note Date: 01/17/2022 Patient Name: [place] Gaspar : 1980 (41 y.o.) Referring Practitioner: Liliane Sawyer APRN, HEAD OF MAINTENANCE Referral Date : 12/19/21 Diagnosis: Lumbar radiculopathy [...] Care Facility Goals - Time Frame for buttermaker continuous churn goals : 10 alf goal 1: Decrease pain low back 2/10 at worst x3 days for completing normal activities buttermaker continuous churn goal 2: Patient to report 50% decrease in radicular symptoms L LE Post Treatment Pain: 5/10 Time In: 1037 Time Out: 1107 Timed Code Treatment Minutes: 30 Minutes Total Treatment Time: 30 Minutes Beverly Rangel, TAG STRINGER Date: 01/17/2022 documented in this encounterSouthern [place] Medical CenterAfrican [facility] Company Phone: [phone]) 947-319304-11-2022 History of Present illness Narrative* Eve Gaspar ISAIAH - 01/13/2022 3:15 PM EDT [facility] Date: 01/13/2022 Patient Name: [place]ina Gaspar : 1980 Pt Cancelled Appt due to no reason given. Eve HannaPRESTON lazcano/Matthew Date: 01/13/2022 documented in this encounterSouthern [place] Medical CenterAfrican [facility]rain Company Phone: [phone] 517-161704-01-2022 History of Present illness Narrative* Beverly Brock [...] 4: Increase trunk ROM B rotation WFL Scientific Photographer Goals - Time Frame for buttermaker continuous churn goals : 10 buttermaker continuous churn goal 1: Decrease pain low back 2/10 at worst x3 days for completing normal activities buttermaker continuous churn goal 2: Patient to report 50% decrease in radicular symptoms L LE Post Treatment Pain: 5/10 Time In: 0948 Time Out: 1028 Timed Code Treatment Minutes: 40 Minutes Total Treatment Time: 40 Minutes Beverly Rangel, TAG STRINGER Date: 01/03/2022 documented in this [facility] hospital[facility] [employer] [employer] Phone: [phone]) 103-164603-29-2022 History of Present illness Narrative* Cheryl Herman, [...] Health Care Facility Goals Time Frame for buttermaker continuous churn goals : 12 visits (01/24/2022) buttermaker continuous churn goal 1: pt to be indepenent in HEP-MET buttermaker continuous churn goal 2: Pt to demonstrate R wrist flexion to 65 degrees or more in order to engage in daily tasks-MET buttermaker continuous churn goal 3: Pt to demonstrate R wrist extension to 60 degrees or more in order to engage in daily tasks-MET buttermaker continuous churn goal 4: Pt to be educated on carpal tunnel do's & dont's in order to prevent further repetitive injury to wrist-MET Timed Code Treatment Minutes: 30 Minutes Time In: 915 Time Out: 945 Timed Coded Minutes: 30 Total Treatment Time: 30 THERESA Houser, OTR/L Date: 12/31/2021 documented in this [place] [facility] Work Phone: [phone]) [phone] Hospital course Narrative* Cheryl Herman OT - [...] has been provided w/ HEP for continued pinch/repair technician strengthening & stretching. Therapist provided pt with handout on Carpal Tunnel Dos & Dont's to avoid re-injury. Prognosis: Fair Goals Short Term Goals Time Frame for Short term goals: STG=LTG [facility] Goals Time Frame for buttermaker continuous churn goals : 12 visits (01/24/2022) alf goal 1: pt to be indepenent in HEP-MET alf goal 2: Pt to demonstrate R wrist flexion to 65 degrees or more in order to engage in daily tasks-MET buttermaker continuous churn goal 3: Pt to demonstrate R wrist extension to 60 degrees or more in order to engage in daily tasks-MET buttermaker continuous churn goal 4: Pt to be educated on carpal tunnel do's & dont's in order to prevent further repetitive injury to wrist-MET Reason for Discharge [] Poor Follow Through [] Completion of Prescribed Sessions [x] Optimal Function Achieved [] Patient Discharged Self [x] Goals Achieved Comments: Thank you for this referral THERESA Houser, OTR/L Date: 12/31/2021 documented in this [facility] Phone: [phone]) 441-455103-29-2022 History of Present illness Narrative* Christel Donohue, PT - 12/31/2021 8:30 AM EDT Images from the original note were not included. [facility] Outpatient Physical Therapy Evaluation Date: 12/31/2021 Patient: Celina Gaspar : 1980 Referring Practitioner: Liliane Sawyer APRN, HEAD OF MAINTENANCE Referral Date : 12/19/21 Diagnosis: Lumbar radiculopathy [...] 4: Increase trunk ROM B rotation WFL buttermaker continuous churn goals Time Frame for buttermaker continuous churn goals : 10 alf goal 1: Decrease pain low back 2/10 at worst x3 days for completing normal activities buttermaker continuous churn goal 2: Patient to report 50% decrease in radicular symptoms L LE Patient's Goal: Decrease back pain to complete normal activities Timed Code Treatment Minutes: 15 Minutes Total Treatment Time: 45 Time In: 8:30 Time Out: 9:15 Christel Donohue, PT Date: 12/31/2021 documented in this [place] [facility] Work Phone: [phone]) 837-238903-28-2022 History of Present illness Narrative* Cheryl Herman, [...] Time Frame for Short term goals: STG=LTG Scientific Photographer Goals Time Frame for alf goals : 12 visits (01/24/2022) alf goal 1: pt to be indepenent in HEP-MET alf goal 2: Pt to demonstrate R wrist flexion to 65 degrees or more in order to engage in daily tasks-MET buttermaker continuous churn goal 3: Pt to demonstrate R wrist [...] Houser, OTR/L Date: 12/30/2021 documented in this [facility] [employer] Work Phone: [phone]) 949-552203-21-2022 History of Present illness Narrative* Cheryl Herman [...] completing these mvmts Left Hand Strength - [employer] Team Member (lbs) Handle Setting 2: 54#, 50#, 53# (52.3# ave) Left Hand Strength - Pinch (lbs) Lateral: 13.5# Tip: 8# Palmar 3 point: 11# Right Hand Strength - [employer] Team Member (lbs) Handle Setting 2: 53#, 54#, 53# [...] goals: STG=LTG alf goals Time Frame for buttermaker continuous churn goals : 12 visits (01/24/2022) buttermaker continuous churn goal 1: pt to be indepenent in HEP buttermaker continuous churn goal 2: Pt to demonstrate R wrist flexion to 65 degrees or more in order to engage in daily tasks buttermaker continuous churn goal 3: Pt to demonstrate R wrist extension to 60 degrees or more in order to engage in daily tasks buttermaker continuous churn goal 4: Pt to be educated on carpal tunnel do's & dont's in order to prevent further repetitive injury to wrist Patient's Goal: pt wishes to return to prior function Time In: 830 Time Out: 924 Timed Coded Minutes: 0 Total Treatment Time: 54 THERESA Houser, OTR/L 12/23/2021 documented in this encounterU [employer] Phone: evaluation note* Diagnosis Viral illness Unspecified viral infection, in conditions classified elsewhere and of unspecified site documented in this encounter [employer] Phone: [email or web address] note* Diagnosis Suspected COVID-19 virus infection documented in this encounter [employer] Phone: evaluation note* Diagnosis Acute cystitis with hematuria Acute cystitis documented in this encounter [employer] Phone: evaluation note* Diagnosis Difficult or painful urination Dysuria documented in this encounter [employer] Phone: [email or web address] note* Diagnosis Acute cystitis with hematuria Acute cystitis Recurrent UTI Urinary tract infection, site not specified documented in this encounter [employer] Phone: [email or web address] note* Diagnosis Frequent UTI Urinary tract infection, site not specified Urinary urgency Urgency of urination Urinary frequency documented in this encounter [employer] Phone: [email or web address] note* Diagnosis Frequent UTI Urinary tract infection, site not specified Urinary urgency Urgency of urination Urinary frequency documented in this encounter [employer] Phone: [email or web address] note* Diagnosis MRSA (methicillin resistant Staphylococcus aureus) septicemia (HCC) Methicillin resistant staphylococcus aureus septicemia documented in this encounter [facility] noteNo assessment information availableLake County Memorial [facility] Work Phone: Evaluation note* Diagnosis Fatigue, unspecified type Encounter for screening for HIV Mixed hyperlipidemia Hyperglycemia Other abnormal glucose Chronic renal impairment, stage 3b (HCC) documented in this encounter [facility] [employer] Phone: evaluation note* Diagnosis Acute cystitis with hematuria Acute cystitis documented in this encounter [employer] Phone: evaluation note* Diagnosis Neck mass Swelling, mass, or lump in head and neck documented in this encounter [employer] Phone: evalptmoqf note* Diagnosis Pain of foot, unspecified laterality Closed nondisplaced fracture of second metatarsal bone of left foot, initial encounter Closed nondisplaced fracture of lateral cuneiform of left foot, initial encounter documented in this encounter [facility] [employer] Phone: evalvhuhzl note* Diagnosis Foreign body (FB) in soft tissue Residual foreign body in soft tissue documented in this encounter [facility] [employer] Phone: evaluation note* Diagnosis Pelvic pressure in female Other specified symptom associated with female genital organs documented in this encounter [facility] [employer] Phone: evaluation note* Diagnosis Charcot arthropathy of midfoot- Primary Gastrocnemius equinus, unspecified laterality Foot pain, left Pain in soft tissues of limb documented in this encounter [facility]* Diagnosis Mixed hyperlipidemia documented in this encounter [facility] [employer] [facility] note* Diagnosis Idiopathic progressive polyneuropathy Non-seasonal allergic rhinitis due to pollen documented in this encounter [facility]* Diagnosis Thyroid nodule Nontoxic uninodular goiter documented in this encounter [facility] [employer] [facility] note* Diagnosis Thyroid nodule- Primary Nontoxic uninodular goiter documented in this encounter [facility]* Diagnosis BUCK on CPAP- Primary 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 (CMS/HCC) Restless legs Restless legs syndrome (RLS) Bilateral carpal tunnel syndrome Carpal tunnel syndrome documented in this encounter [facility]* Diagnosis Idiopathic progressive polyneuropathy- Primary Bilateral carpal tunnel syndrome Carpal tunnel syndrome Restless legs Restless legs syndrome (RLS) Intractable 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 (CMS/HCC) documented in this encounter [facility]* Diagnosis BUCK (obstructive sleep apnea) Obstructive sleep apnea (adult) (pediatric) Hypersomnia Hypersomnia, unspecified Snoring Other dyspnea and respiratory abnormality Class 2 obesity due to excess calories with body mass index (BMI) of 38.0 to 38.9 in adult, unspecified whether serious comorbidity present documented in this encounter [facility]* Diagnosis Idiopathic progressive polyneuropathy Non-seasonal allergic rhinitis due to pollen documented in this encounter [facility]* Diagnosis Thyroid nodule- Primary Nontoxic uninodular goiter Lipoma of neck [facility]* Diagnosis 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 (CMS/HCC) documented in this encounter [facility]* Diagnosis BUCK on CPAP- Primary Idiopathic progressive polyneuropathy Restless legs Restless legs syndrome (RLS) Intractable 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 (CMS/HCC) documented in this encounter [facility]* Diagnosis Pre-diabetes Other abnormal glucose Mixed hyperlipidemia documented [facility] this encounter [facility]* Diagnosis BUCK (obstructive sleep apnea)- Primary Obstructive sleep apnea (adult) (pediatric) BUCK on CPAP Claustrophobia (CMS/HCC) Other isolated or specific phobias documented in this encounter [facility] note* Diagnosis BUCK (obstructive sleep [...] through Care Everywhere. * Diabetic Foot Ulcer (Citizen Of [place]) [facility] Narrative* Other (Routine) - Closed Specialty Diagnoses / Procedures Referred By Contac t Referred To Contact Radiology Diagnoses Encounter for screening mammogram for malignant neoplasm of breast Procedures NITA BRIAN DIGITAL SCREEN BILATERAL Back, MD Felipe [address] [id number] Phone: tel: fax: Referral ID Status Reason Start Date Expiration Date Visits Re quested Visits Authorized [id number] Closed 01/29/2025 01/29/2026 1 1 [facility] N[facility]* Imaging (Emergency) - Pending Review Specialty Diagnoses / Procedures Referred By Thor bernal Referred To Contact Radiology Diagnoses Pain in right foot Procedures MRI FOOT RIGHT W WO CONTRAST Robbin Sánchez, DPDieudonne [address] [facility] [address], [place] [address] Phone: tel: fax: Referral ID Status Reason Start Date Expiration Date V isits Requested Visits Authorized [id number] Pending Review 04/11/2025 04/10/2026 1 1 [facility] Summary Purpose Family History No Family History [...] FoundDocuments on File Type Date Recorded 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 Advance Directives and Living Will Power of Supervisor Filter Assembly Latest Code Status on File Code Status Date Activated Date Inactivated Comments Full Code 08/15/2018 4:17 PM 08/25/2018 8:55 PM Full Code 03/19/2017 1:37 PM 03/19/2017 4:32 PM Full Code 03/19/2017 10:57 AM 03/19/2017 1:37 PM Full Code 03/05/2017 12:56 PM 03/05/2017 3:55 PM Full Code 03/05/2017 10:05 AM 03/05/2017 12:56 PM Documents on File Type Date Recorded 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 anation ACP-Advance Directive ACP-Power of Supervisor Filter Assembly Documents on File Type Date Recorded 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 anation ACP-Advance Directive ACP-Power of Supervisor Filter Assembly Latest Code Status on File Code Status [...] Everywhere. * Back Care Basics: General Info (Citizen Of [place]) * Back: Preventing Injuries (Citizen Of [place]) documented in this encounter Reason for Referral Status Reason Specialty Diagnoses / Procedures Referre d By Contact Referred To Contact Closed Radiology Diagnoses Brachial neuritis Peripheral nerve disorder Spasm of muscle Procedures MR Cervical Spine Without Contrast Tiffanie Casas MD [address] [place] [address] Specialty Diagnoses / Procedures Referred By Liangac t Referred To Contact Radiology Diagnoses Neck mass Procedures US HEAD NECK SOFT TISSUE THYROID Felipe Adam MD [address] [place] [address] Referral ID Status Reason Start Date Expiration Date Visits Re quested Visits Authorized [id number] Closed 05/27/2022 05/27/2023 1 1 Specialty Diagnoses / Procedures Referred By Thor bernal Referred To Contact Radiology Diagnoses Thyroid nodule Procedures US THYROID Felipe Adam MD [address] [place] [address] Referral ID Status Reason Start Date Expiration Date V isits Requested Visits Authorized [id number] Pending Review 09/06/2024 08/26/2025 1 1 Chief Complaint and Reason for Visit Chief Complaint M54.16 M79.10 M79.60 9 R20.9 Chief Complaint Unknown Additional Source Comments INFORMATION SOURCE (unrecogn ized section and content) DATE CREATED AUTHOR 03/30/2018 [facility] DATE CREATED AUTHOR AUTHOR'S ORGANIZ ATION 03/30/2018 [facility] DATE CREATED AUTHOR AUTHOR'S ORGANIZ ATION 09/15/2018 [facility] DATE CREATED AUTHOR AUTHOR'S ORGANIZ ATION 09/23/2018 [facility] DATE CREATED AUTHOR AUTHOR'S ORGANIZ ATION 09/26/2018 [facility] DATE CREATED AUTHOR AUTHOR'S ORGANIZ ATION 12/10/2018 [facility] DATE CREATED AUTHOR AUTHOR'S ORGANIZ ATION 12/18/2018 [facility] DATE CREATED AUTHOR AUTHOR'S ORGANIZ ATION 02/11/2019 [facility] DATE CREATED AUTHOR AUTHOR'S ORGANIZ ATION 11/30/2021 [facility] DATE CREATED AUTHOR AUTHOR'S ORGANIZ ATION 05/01/2022 [facility] DATE CREATED AUTHOR AUTHOR'S ORGANIZ ATION 01/12/2023 [facility] DATE CREATED AUTHOR AUTHOR'S ORGANIZ ATION 02/15/2023 [facility] DATE CREATED AUTHOR AUTHOR'S ORGANIZ ATION 04/04/2023 [facility] DATE CREATED AUTHOR AUTHOR'S ORGANIZ ATION 02/20/2024 [facility] DATE CREATED AUTHOR AUTHOR'S ORGANIZ ATION 10/17/2024 [facility] DATE CREATED AUTHOR AUTHOR'S ORGANIZ ATION 02/14/2025 [facility] DATE CREATED AUTHOR AUTHOR'S ORGANIZ ATION 2025 [facility] EPIC DATE CREATED AUTHOR AUTHOR'S ORGANIZ ATION 06/13/2025 [facility] Reason for Visit (unrecogniz ed section and content) Reason Comments Sleep Apnea Specialty Diagnoses / Procedures Referred By Thor bernal Referred To Contact Neurology Diagnoses BUCK on CPAP Procedures ME OFFICE/OUTPATIENT NEW HIGH MDM 60 MINUTES Fozia Meng, IMPORT/EXPORT ANALYST [address], [facility] [address] [place] [address] Phone: tel: fax: Lynn Block MD [address] [facility] [address] [place] [address] Phone: tel: fax: Referral ID Status Reason Start Date Expiration Date V isits Requested Visits Authorized [id number] Closed Specialty Services Required 11/14/2024 05/13/2025 1 1 Status Reason Specialty Diagnoses / Procedures Referre d By Contact Referred To Contact Closed Radiology Diagnoses Brachial neuritis Peripheral nerve disorder Spasm of muscle Procedures MR Cervical Spine Without Contrast Tiffanie Casas MD [address] [address] Specialty Diagnoses / Procedures Referred By Contac t Referred To Contact Occupational Therapy Diagnoses Carpal tunnel syndrome Carpal Tunnel Syndrome Procedures Eval and treat Keenan Lozano MD [address] [facility] [address] [place] [address] [facility] [address] [place] [address] Referral ID Status Reason Start Date Expiration Date Visits Re quested Visits Authorized [id number] Open 12/19/2021 12/19/2022 1 1 Specialty Diagnoses / Procedures Referred By Contac t Referred To Contact Physical Therapy Diagnoses Radiculopathy, lumbar region Lumbar Radiculopathy Procedures Eval and treat Janel Allen, BUREAU DIRECTOR - HEAD OF MAINTENANCE [address] [address] [facility] [address] [place] [address] Referral ID Status Reason Start Date Expiration Date Visits Re quested Visits Authorized [id number] Open 12/19/2021 12/19/2022 1 1 Specialty Diagnoses / Procedures Referred By Contac t Referred To Contact Radiology Diagnoses Neck mass Procedures US HEAD NECK SOFT TISSUE THYROID Back, MD Felipe [address] [place] [address] Referral ID Status Reason Start Date Expiration Date Visits Re quested Visits Authorized [id number] Closed 05/27/2022 05/27/2023 1 1 Specialty Diagnoses / Procedures Referred By Liangac t Referred To Contact Radiology Diagnoses Pain of foot, unspecified laterality Closed nondisplaced fracture of lateral cuneiform of left foot, initial encounter Procedures MRI FOOT LEFT W WO CONTRAST MRI FOOT LEFT W WO CONTRAST Robbin Sánchez, DPM [address] [facility] [address], [address] [place] [id number] Referral ID Status Reason Start Date Expiration Date Visits Re quested Visits Authorized [id number] Closed 06/20/2022 06/20/2023 1 1 Reason Comments Education Class Specialty Diagnoses / Procedures Referred By Thor t Referred To Contact Diabetes Services Diagnoses Pre-diabetes Felipe Adam MD [address] [place] [address] [facility] [address] [place] [address] Referral ID Status Reason Start Date Expiration Date V isits Requested Visits Authorized [id number] Open Specialty Services Required 06/30/2022 06/30/2023 2 2 Specialty Diagnoses / Procedures Referred By Thor t Referred To Contact Diabetes Services Diagnoses Pre-diabetes Felipe Adam MD [address] [id number] [facility] [address] [place] [id number] Reason Comments Other Left foot charcot on -going since 06/2022. New x-rays today. 2nd of opinion. Specialty Diagnoses / Procedures Referred By Thor t Referred To Contact Radiology Diagnoses Thyroid nodule Procedures US THYROID Felipe Adam MD [address] [phone] Referral ID Status Reason Start Date Expiration Date V isits Requested Visits Authorized [id number] Pending Review 09/06/2024 08/26/2025 1 1 Reason Onset Date Comments Med Refill 10/05/2024 Reason Comments New Patient FNA - THYROID NODULE Specialty Diagnoses / Procedures Referred By Thor bernal Referred To Contact Otolaryngology Diagnoses Thyroid nodule Back, MD Felipe [address] [place] [address] Phone: tel: fax: Sherman Adair MD [address] [phone] Phone: tel: fax: Referral ID Status Reason Start Date Expiration Date V isits Requested Visits Authorized [id number] Pending Review 09/09/2024 09/09/2025 1 1 Reason [...] Care Teams (unrecognized sec tion and content) Four Slide Machine Operator Relationship Specialty Start Date End Date Back, MD Felipe [address] [place] [address] PCP - General Internal Medicine 11/14/11 Four Slide Machine Operator Relationship Specialty Start Date End Date Back, MD Felipe [address] [place] [address] PCP - General Internal Medicine 11/14/11 Four Slide Machine Operator Relationship Specialty Start Date End Date Back, MD Felipe [address] [place] [address] PCP - General Internal Medicine 11/14/11 Four Slide Machine Operator Relationship Specialty Start Date End Date Back, MD Felipe [address] [phone] PCP - General Internal Medicine 11/14/11 Four Slide Machine Operator Relationship Specialty Start Date End Date Back, MD Felipe [address] [place] [address] PCP - General Internal Medicine 11/14/11 Four Slide Machine Operator Relationship Specialty Start Date End Date Back, MD Felipe [address] [place] [address] PCP - General Internal Medicine 11/14/11 Four Slide Machine Operator Relationship Specialty Start Date End Date Back, MD Felipe [address] [place] [address] PCP - General Internal Medicine 11/14/11 Team Status: Inactive Member Role Status Dates NON STAFF Primary Care Provider Active Tiffanie Casas MD Attending Provider Active Team Status: Active Member Role Status Dates NON STAFF Primary Care Provider Active Four Slide Machine Operator Relationship Specialty Start Date End Date Back, MD Felipe [address] [place] [address] PCP - General Internal Medicine 11/14/11 Four Slide Machine Operator Relationship Specialty Start Date End Date Back, MD Felipe [address] [place] [address] PCP - General Internal Medicine 11/14/11 Four Slide Machine Operator Relationship Specialty Start Date End Date Back, MD Felipe [address] [place] [address] PCP - General Internal Medicine 11/14/11 Four Slide Machine Operator Relationship Specialty Start Date End Date Back, MD Felipe [address] [place] [address] PCP - General Internal Medicine 11/14/11 Four Slide Machine Operator Relationship Specialty Start Date End Date Back, MD Felipe [address] [place] [address] PCP - General Internal Medicine 11/14/11 Four Slide Machine Operator Relationship Specialty Start Date End Date Back, MD Felipe [address] [facility], [facility] PCP - General Internal Medicine 11/14/11 Four Slide Machine Operator Relationship Specialty Start Date End Date Back, MD Felipe [address] [facility], [place] [address] PCP - General Internal Medicine 11/14/11 Four Slide Machine Operator Relationship Specialty Start Date End Date Back, MD Felipe [address] [facility], [place] [address] PCP - General Internal Medicine 11/14/11 Four Slide Machine Operator Relationship Specialty Start Date End Date Back, MD Felipe [address] [place] [address] PCP - General Internal Medicine 03/26/15 Four Slide Machine Operator Relationship Specialty Start Date End Date Back, MD Felipe [address] [facility], [place] [address] PCP - General Internal Medicine 11/14/11 Team Status: Inactive Member Role Status Dates Frances Harris DPM MS Attending Provider Active Start: February 15, 2024 End: February 15, 2024 Four Slide Machine Operator Relationship Specialty Start Date End Date Back, MD Felipe [address] [facility], [place] [address] PCP - General Internal Medicine 11/14/11 Four Slide Machine Operator Relationship Specialty Start Date End Date Back, MD Felipe [address] [facility], [place] [address] PCP - General Internal Medicine 11/14/11 Four Slide Machine Operator Relationship Specialty Start Date End Date Back, MD Felipe [address] [place] [id number] PCP - General Internal Medicine 03/26/15 Four Slide Machine Operator Relationship Specialty Start Date End Date Back, MD Felipe [address] [place] [address] PCP - General Internal Medicine 03/26/15 Four Slide Machine Operator Relationship Specialty Start Date End Date Back, MD Felipe [address] [facility], [place] [address] PCP - General Internal Medicine 11/14/11 Four Slide Machine Operator Relationship Specialty Start Date End Date Back, MD Alcides [address] [facility], [place] [address] PCP - General Family Medicine 12/08/24 Four Slide Machine Operator Relationship Specialty Start Date End Date Back, MD Alcides [address] [place] [address] PCP - General Family Medicine 12/08/24 Four Slide Machine Operator Relationship Specialty Start Date End Date Back, MD Felipe [address] [place] [address] PCP - General Internal Medicine 11/14/11 Four Slide Machine Operator Relationship Specialty Start Date End Date Back, MD Alcides [address] [place] [address] PCP - General Family Medicine 12/08/24 Four Slide Machine Operator Relationship Specialty Start Date End Date Back, MD Felipe [address] [facility], [place] [address] PCP - General Internal Medicine 11/14/11 Four Slide Machine Operator Relationship Specialty Start Date End Date Back, MD Alcides [address] [facility], [place] [address] PCP - General Family Medicine 12/08/24 Four Slide Machine Operator Relationship Specialty Start Date End Date Back, MD Alcides [address] [place] [address] PCP - General Family Medicine 12/08/24 Four Slide Machine Operator Relationship Specialty Start Date End Date Back, MD Alcides [address] [place] [address] PCP - General Family Medicine 12/08/24 Four Slide Machine Operator Relationship Specialty Start Date End Date Back, MD Alcides [address] [place] [address] PCP - General Family Medicine 12/08/24 Four Slide Machine Operator Relationship Specialty Start Date End Date Back, MD Felipe [address] [place] [address] PCP - General Internal Medicine 11/14/11 Four Slide Machine Operator Relationship Specialty Start Date End Date Back, MD Felipe [address] [place] [address] PCP - General Internal Medicine 11/14/11 Four Slide Machine Operator Relationship Specialty Start Date End Date Back, MD Alcides [address] [place] [address] PCP - General Family Medicine 12/08/24 Four Slide Machine Operator Relationship Specialty Start Date End Date Back, MD Felipe [address] [place] [address] PCP - General Internal Medicine 11/14/11 Four Slide Machine Operator Relationship Specialty Start Date End Date Back, MD Alcides [address] [place] [address] PCP - General Family Medicine 12/08/24 Four Slide Machine Operator Relationship Specialty Start Date End Date Alcides Adam MD [address] [place] [address] PCP - General Family Medicine 12/08/24 Goals [...] BE BASED ON THE PRIMARY CLINICAL RECORDS. [facility]. provides no warranty or guarantee of the accuracy or completeness of information in this document.
== END 2025-07-19 10:51 | disposition home or self-care (01) ==
LOC: WC 10:50
PROVIDERS: PCP Internal Medicine; Visit Provider Physician Assistant
DX: E11.621 Type 2 diabetes mellitus with foot ulcer (principal); L97.515 Non-pressure chronic ulcer of other part of right foot with muscle involvement without evidence of necrosis
CPT/HCPCS: 11043; 29445; A6213

== ENCOUNTER 2025-07-25 10:48 | Outpatient (OUT) | payer OTHER, SELFPAY ==
--- OUTSIDE RECORDS SUMMARY | 2025-07-25 10:52 | XMS_ITS | Clinical Summary ---
[facility] Organization [facility] Address [address] [place] [address] Care Team Providers Care Rags Laborer Name Role Phone BackAlcides MD Primary Care Provider [phone] Allergies No known active allergies Medications MedicationSigDispense QuantityRefillsLast FilledStart DateEnd DateStatus Cetirizine HCl (ALL DAY ALLERGY) 10 MG Cap 06/09/2017Active gabapentin 600 MG Tab take 600 mg by mouth 2 times daily.06/09/2017Active gemfibrozil 600 MG Tab take 600 mg by mouth 2 times daily. 30 minutes before morning and evening meal 06/09/2017Active paroxetine 20 MG Tab take 20 mg by mouth daily.06/09/2017Active fluticasone 50 MCG/ACT Suspension nasal spray 2 sprays by Nasal route daily.Active hydroCODone-acetaminophen 5-325 MG Tab tablet take 1 tablet by mouth every 8 hours as needed.Active erythromycin 5 MG/GM Ointment ophthalmic ointment Apply to eye incisions 2 x a day 1 Tube 08/19/2017Active Active Problems ProblemNoted DateDiagnosed DateBasal cell amwnrlhle03/26/2017 Overview (09/29/2017): Added automatically from request for surgery [id number] Basal cell carcinoma of skin of face09/16/2017Neoplasm of uncertain behavior of skin Social History Tobacco UseTypesPacks/DayYears UsedDateSmoking Tobacco: NeverSmokeless Tobacco: NeverAlcohol UseStandard Drinks/WeekCommentsNo0 (1 standard drink = 0.6 oz pure alcohol)CommentsUnknownSex and Gender InformationValueDate RecordedSex Assigned at BirthNot on fileLegal DhiAemzue32/06/2017 7:26 PM ESTGender Identity Coevmq7106/25/2017 9:30 AM EDTSexual OrientationNot on file Last Filed Vital Signs Vital SignReadingTime TakenCommentsBlood Tvrfeejm049/78011/24/2017 12:00 PM EST Bmfaf882711/24/2017 12:00 PM CAVFrhiwnnahei90.6 ??C (97.9 ??F)11/24/2017 12:00 PM ESTRespiratory Zqmb558010/09/2017 11:44 AM ESTOxygen Pbgsfscwnt68%10/09/2017 11:44 AM ESTInhaled Oxygen Concentration--Yrbbfk723.5 kg (221 lb 8 oz)02/26/2022 2:01 PM ZIONczame023.8 cm (5' 2.5 )02/26/2022 2:07 PM EDTBody Mass Index39.87 02/26/2022 2:01 PM EDT Plan of Treatment Health MaintenanceDue DateLast DoneCommentsHEPATITIS C VIRUS MWMGVAKVT1979 HIV SCREENING RIPTTUIOXS74/25/1994HEP B VACCINE (1 of 3 - 19+ 3-dose series) 1998CERVICAL CANCER SCREENING AGWDJPTQWN43/25/2000LIPID SCREENING 2019MAMMOGRAM SCREENING LPTSMVTOLK33/25/2019COLORECTAL CANCER SCREENING KZMBGLHXIW61/25/2612WHPMGYB57COVID-19 VACCINE ( - season)2025INFLUENZA VACCINE (#1)2025TDAP (ADULT)Wznfnpiqo73/05/2014 PNEUMOCOCCAL VACCINE SERIESAged OutNo longer eligible based on patient's age to complete this topic Insurance Care Teams Team MemberRelationshipSpecialtyStart DateEnd Date Back, MD Alcides [address] [place] [address] PCP - GeneralInternal Ebysllvy67/27/17
--- OUTSIDE RECORDS SUMMARY | 2025-07-25 10:52 | XMS_ITS | Clinical Summary ---
Author Organization [facility] Address [address] [place] [address] Care Team Providers Care Telecommunications Manager Name Role Phone Felipe Adam MD Primary Care Provider [phone] Allergies Active AllergyReactionsCriticalityNoted DateCommentsChlorhexidineRashLow 03/03/2023TopiramateOther (See Comments)10/29/2023 Made her feel overly thirsty and caused bad smell and taste. Medications MedicationSigDispense QuantityRefillsLast FilledStart DateEnd DateStatus gemfibrozil (LOPID) 600 MG tablet Take 1 (one) tablet (600 mg total) by mouth 2 (two) times a day before meals . Active cetirizine (ZYRTEC) 10 MG tablet Take 1 (one) tablet (10 mg total) by mouth daily .Active cholecalciferol, vitamin D3, (VITAMIN D3) 2,000 unit Tab Take by mouth.Active b complex vitamins (Vitamins B Complex) capsule Take 1 (one) capsule by mouth daily .Active baclofen (LIORESAL) 10 MG tablet TAKE 2 TABLETS BY MOUTH AT BEDTIME FOR 30 DAYS02/26/2023ctive montelukast (SINGULAIR) 10 mg tablet Take 1 (one) tablet (10 mg total) by mouth nightly .09/22/2022ctive rOPINIRole (REQUIP) 1 MG tablet Take 1 (one) tablet (1 mg total) by mouth 3 (three) times a day .04/02/2021 Active sertraline (ZOLOFT) 100 MG tablet 02/25/2023ctive pregabalin (LYRICA) 300 MG capsule Take 1 (one) capsule (300 mg total) by mouth 2 (two) times a day .Active calcium carbonate (CALCIUM 500 ORAL) Take by mouth .Active Active Problems No known active problems Family History Medical HistoryRelationCommentsCOPDFatherHeart diseaseFatherstent, bypass HyperlipidemiaFatherAsthmaMotherCOPDMotherCancerMotherlungClotting disorder MotherDiabetesMotherGER diseaseMotherHeart diseaseMotherHyperlipidemiaMother HypertensionMotherIrregular heart beatMotherObesityMotherStrokeMotherRelation StatusCommentsFatherMother Social History Tobacco UseTypesPacks/DayYears UsedDateSmoking Tobacco: NeverSmokeless Tobacco: NeverAlcohol UseStandard Drinks/WeekCommentsNo0 (1 standard drink = 0.6 oz pure alcohol)CommentsNoSex and Gender InformationValueDate RecordedSex Assigned at BirthNot on fileLegal MgfGnvhcz71/12/2014 10:22 AM EDTGender TqqzxcjtQharhe40/07/2025 9:28 AM ESTSexual PhxdrgxvlctTbjvllfi17/07/2025 9:28 AM EST Last Filed Vital Signs Vital SignReadingTime TakenCommentsBlood Zapwkdkl254/8703/03/2023 2:44 PM EDT Jnfdw449103/03/2023 2:44 PM XSNNjhhzhtqunp10.8 ??C (98.3 ??F)10/11/2024 9:42 AM ESTRespiratory Ducb963301/06/2023 5:48 PM EDTOxygen Nssskkpjay91%01/06/2023 4:22 PM EDTInhaled Oxygen Concentration--Hdjpwv43.8 kg (209 lb)10/11/2024 9:42 AM EST Jwbxcv926.5 cm (5' 2 )10/11/2024 9:42 AM ESTBody Mass Index38.23010/11/2024 9:42 AM EST Plan of Treatment DateTypeDepartmentCare Team (Latest Contact Info)Kvzorfoawgw68/08/2026 10:30 AM ESTOffice Visit [facility] [address] [place] [address] Dimas Adair MD [address] [place] [address] Health MaintenanceDue DateLast DoneCommentsCT Kfztaoqgwnlw1979Fecal DNA 1979Fecal occult blood test (FOBT,FIT)1979Flexible sigmoidoscopy 1979Depression Screening/Follow-Up (PHQ-2/9)1991Hepatitis C Wsbdbvjqq20/25/6955Eabumsora38/25/2019Pap SmearCervical Cancer Apjubxndp23/16/2022HPV/Ndnqsr91Wellness Visit04/11/2023 04/11/2022Tetanus: Every 10yrs (RETIRED)/02/2014COVID-19 Vaccine ( season)2025Influenza Vaccine (#1)1266Asqrrnzxgfv97/07/2028 12/09/2017Colorectal Cancer Screening/Wecytxhqws35/07/2028HIV ScreeningCompleted 10/20/2017Pneumococcal VaccineAged OutNo longer eligible based on patient's age to complete this topic Procedures Procedure NamePriorityDate/TimeAssociated DiagnosisCommentsHIV 1/2 SCREEN (4TH GENERATION)Zngqibi1210/20/2017 5:25 PM EST Encounter for general adult medical examination without abnormal findings THINPREP PAP QPGOCOpeinwd24/16/2017 12:00 AM EDT HIGH RISK HPV WITH GENOTYPE 16,43Pojxilj86/16/2017 12:00 AM EDT Encounter for general adult medical examination without abnormal findings from Last 3 Months or Most Recently Relevant to Health Maintenance Results * HIV Antibody (HIV1/HIV2) (10/20/2017 5:25 PM EST)ComponentValueRef RangeTest MethodAnalysis TimePerformed AtPathologist SignatureHIV 1-2 ScreenNegative Atujbghn90/17/2018 9:47 AM [facility] LABSpecimen (Source)Anatomical Location / LateralityCollection Method / VolumeCollection TimeReceived TimeBloodBLOOD SPECIMEN / Qckpzxm2610/20/2017 5:25 PM EST10/20/2017 10:58 PM EST Narrative [facility] - 10/21/2017 9:47 AM EST Test performed using [employer] Immunodiagnostic system. Authorizing ProviderResult TypeResult StatusMichuyen MATHEWS BLOOD ORDERABLESFinal ResultPerforming OrganizationAddressCity/State/ZIP CodePhone Number [facility] [address] [place] [address] * High Risk HPV with Genotype 16,18 (03/20/2017 12:00 AM EDT)ComponentValueRef RangeTest MethodAnalysis TimePerformed AtPathologist SignatureHPV 16Negative Qpkgdaxz09/28/2017 2:01 PM [facility] LABH[facility] 18Negative Fuwfgmkh29/28/2017 2:01 PM [facility] LABHPV, Other HR YzgilCjvbecxqVcgcowtd24/28/2017 2:01 PM [facility] Specimen (Source)Anatomical Location / LateralityCollection Method / Volume Collection TimeReceived TimePap, Liquid BasedCERVIX UTERI STRUCTURE / Unknown 9:32 PM EDT Narrative [facility] - 04/01/2017 2:01 PM EDT Assay performed using [employer] 4800 system utilizing Real-Time PCR to amplify target HPV DNA. This system specifically identifies HPV16 and HPV18 while concurrently detecting the other twelve high risk types (31,33,35,39,45,51,52,56,58,59,66,68). Authorizing ProviderResult TypeResult StatusMelissa Pinky Richard DOBODY FLUIDS AND STOOLS ORDERABLESFinal ResultPerforming OrganizationAddress City/State/ZIP CodePhone Number [facility] [address] [place] [address] * Thinprep Pap Smear (03/20/2017 12:00 AM EDT)Specimen (Source)Anatomical Location / LateralityCollection Method / VolumeCollection TimeReceived Time 03/20/2017 Narrative [facility] - 03/20/2017 12:00 AM [...] HPV DNA. This system specifically identifies HPV16 lygCXS81 while concurrently detecting the other twelve high risk types(31,33,35,39,45,51,52,56,58,59,66,68). Completed by LT on 2017-04-02 Electronically Signed By Arielle NEFF (ASCP) , Professor Of Family Medicine (Case signed 03/30/2017) The Papanicolaou smear is a screening tool, and like any screen, has an inherent false negative rate. ??Interpretation of results should be made in the context of patient history and clinical findings. Authorizing ProviderResult TypeResult StatusMelissa Pinky Richard DO PATHOLOGY/CYTOLOGY ORDERABLESFinal ResultPerforming OrganizationAddress City/State/ZIP CodePhone Number [facility] from Last 3 Months or Most Recently Relevant to Health Maintenance Insurance * Guarantor: Celina Gaspar TypeRelation to PatientDate of BirthPhone Billing AddressPersonal/PfyqvkGocu1980 [phone] (Home) [address] [place] [address] Care Teams Team MemberRelationshipSpecialtyStart DateEnd Date Back, MD Felipe [address] [place] [phone] (Work) PCP - GeneralInternal Medicine03/26/15
--- OUTSIDE RECORDS SUMMARY | 2025-07-25 10:52 | XMS_ITS | Continuity of Care Document ---
Author Organization [facility] Address [address] [place] [id number] Phone [phone] Care Team Providers Care Scrap Handler Name Role Phone Back, Alcides MELENDREZ Care Team Information Duct Layer + [phone] Problems Active Problems Provider Date Chronic kidney [...] Acquired Date Facility Test Result H/[place] .Urine Protein/Creat. Random 06/12/2025 [place], [place] [phone].Urine Protein Random<4.Urine Creatinine Gqzauh57.4.V Ipth-Vitamin D006/12/2025[place], [place] [phone].Ipth40.0.Vitamin D, 25 Dtmjpte87.2.Renal Panel06/12/2025[place], [place] [phone].Albumin4.2.Calcium9.2.Carbon Ijofvoy93.Dkswcboj68.Phosphorus3.9 .Potassium4.5.Yhbvkd998.BUN23.GFR Gebufahab20Gfod46.Creatinine-LC1.3.Urine Protein/Creat. Ogjntr5005/10/2024[place], [place] [phone].Urine Protein Random9.Urine Creatinine Tpbajq123.0.Urine Prot/Creat Ratio0.07.Nljkmpbdn76/06/2024[place], [place] [phone].Magnesium2.2.Urinalysis-Cfwszzw7905/10/2024[place], [place] [phone] Specific Gravity1.020Ua PH Test Strip5.0Ua ColoryellowUa AppearanceclearUa ProteintraceUa GlucosenegativeUa KetonesnegativeUa Bilirubin negativeUa UrobilinogennormalUa NitritenegativeUa Occult Bloodnegative.Renal Panel05/10/2024[place], [place] [phone].Albumin4.2.Calcium9.2.Carbon Qqigsnm41.Hnfdqktz891.Phosphorus3.8 .Potassium4.0.Otwail574.BUN19.GFR Hnjanocil75Djdg29.Creatinine-LC1.3.Renal Panel 05/17/2023[place], [place] [phone].Albumin4.1.Calcium9.5.Carbon Vauovwa80.Mvcnwbza634.Phosphorus3.0 .Potassium4.3.Jneocr639.BUN17.GFR >59Eerl58.Creatinine-LC1.1.Urine Protein/Creat. Ecbpxe3305/17/2023[place], [place] [phone].Urine Protein Jptnde68.Urine Creatinine Kjimpz811.1.Urine Prot/Creat Ratio0.07.Ipth05/17/2023[place], [place] [phone].Ipth47.1.Vitamin D, 25 Onyydat2405/17/2023[place], [place] [phone].Vitamin D, 25 Umqdlnm92.1.Urine Protein/Creat. Spbcyh1405/20/2022 [place], [place] [phone].Urine Protein Random7.Urine Creatinine Glzaoi97.1.Urine Prot/Creat Ratio0.07.Tibc-LC05/20/2022[place], [place] [phone]-LC263.Czouybva06/16/2022[place], [place] [phone].Jgsfjquw605.Iron05/20/2022[place], [place] [phone].Iron48.Transferrin-LC05/20/2022[place], [place] [phone].Transferrin-LC280.T-Sat-LC05/20/2022[place], [place] [phone].T-Sat-LC0.18.V Ipth-Vitamin D005/20/2022[place], [place] [phone].Ipth39.91.Vitamin D, 25 Fijymbo80.3.Issnzyyuo48/16/2022[place], [place] [phone].Magnesium2.1.Hemoglobin And Ewjnxjmvvh76/16/2022[place], [place] [phone].Hemoglobin Blood11.1.Hmpnvjinex12.3.Renal Panel05/20/2022[place], [place] [phone].Albumin4.4.Ngigjew10.0.Carbon Gngjvgd52.Tfgmnmqt522.Phosphorus3.8 .Potassium4.3.Tzenfg010.BUN18.EEM82Lfyw49.GFR Ovibvqkww73Nsnb63.Creatinine-LC 1.13.Renal Panel (Other Labs)05/21/2021[place], [place] [phone].Albumin4.2.Calcium9.2.Carbon Ahxadee90.Fdlxqoct924.Creatinine-LC 1.18.Phosphorus3.7.Elcdrt652.BUN19.LSO86Mxtp80.Potassium4.2.Urine Protein/Creat. Viakra2405/21/2021[place], [place] [phone].Urine Protein Random7.Urine Creatinine Gyyetb833.7.Magnesium 05/21/2021[place], [place] [phone].Magnesium2.2.Urinalysis-Lpmvrnb1905/21/2021[place], [place] [phone] Specific Gravity1.020Ua PH Test Strip5.0Ua ColorYELLOWUa AppearanceCLEARUa ProteinTRACEUa GlucoseNEGATIVEUa KetonesNEGATIVEUa UrobilinogenNORMALUa Occult BloodNEGATIVE.Ua05/25/2020[place], [place] [phone] AppearanceclearUa Bilirubin-Ua Blood-Ua ColoryellowUa Glucose 100mg/dlUa Leuko-Ua Nitrite-Ua PH Test Strip6.0Ua Protein-Ua Specific [place] 1.020Ua Urobilinogen-.Urine Protein/Creat. Glhjke8405/25/2020[place] [phone].Urine Protein Random8.Urine Creatinine Utigiz788.2.Urine Prot/Creat Ratio0.08.Renal Panel05/25/2020[place], [place] [phone].Albumin4.4.Hynvmvu01.1.Carbon Poxuzbu81.Bulrthyf987.Creatinine-LC 1.37.Trykzaeobb07.Cnaytq798.BUN24.GFR-VK24Ffsi97.Potassium4.6.Renal Panel 06/17/2019[place], [place] [phone].Albumin4.3.Cqmlfpv23.4.Carbon Ixndhgo66.Vcywgvni124.Creatinine-LC 1.27.Phosphorus3.0.Hhxswq013.BUN18.GFR-BX07Rugu87.Potassium3.8.Ua06/17/2019[place] [phone] AppearanceHAZYUa Bacteria1+Ua BilirubinNEGUa BloodNEGUa Color YELLOWUa Epithelial Cells QL2-5Ua GlucoseNEGUa KetonesNEGUa LeukoNEGUa Nitrite NEGUa PH Test Strip6.0Ua ProteinTRACEUa Specific Gravity1.025Ua Urobilinogen NORMALUa WBC0-2.Urine Protein/Creat. Gbklxh6906/17/2019[place], [place] [phone].Urine Protein Frfaia15.Urine Creatinine Fiwsnf687.2.Urine Prot/Creat Ratio0.08.Iaemsnwvy17/13/2019[place] [phone].Magnesium2.3.Hemoglobin And Xrhxzwzfgg85/13/2019[place], [place] [phone].Hemoglobin Blood12.1.Ajokvgzrhx89.4.Renal Panel -LC04/14/2018 [place] [phone].Albumin3.7.Calcium8.9.Carbon Bhqedxd65.Hmwtmfel827.Creatinine-LC 1.28.Phosphorus3.6.Guzkiu940.BUN19.GFR-PA88Mwha62.Potassium4.1.Urine Protein/Creat. Hgehgt4304/14/2018[place], [place] [phone].Urine Protein Random7.Urine Creatinine Gijmod487.7.Urine Prot/Creat Ratio0.07.CBC W/Xpzjawrkkdxv09/11/2018[place] [phone].White Blood Count8.6.Red Blood Count4.40.Hemoglobin Blood13.3 .Dchdesvgvr30.4MCH (Corpuscular Hemoglobin)30.2MCHC (Corpuscular Hemog Conc)33.7 RDW15.6.Platelet Count Qrzfr082Dgxgekhauhy60Tdtwl Qnvbgzfuzah55Ewwammibe0Ubfao Body Yvwuvcbytuf3Lxdtlhnln %1Absolute Basophils0.10Absolute Eosinophils0.20 Absolute Lymphocytes2.70Absolute Monocytes0.50.Ipth04/14/2018[place], [place] [phone].Ipth63.72Vhif1511/18/2017[facility], Abdomen, W/ ContrastSEE MWTZOKRylz76/14/2018[facility], Abdomen, W/ ContrastCORTICAL CYST L KIDY.Urinalysis-Wqpmnya0111/17/2017 [facility] [phone] UrineNO SIGNIFICANT H.Urinalysis-Vkvqugl5411/17/2017[facility] [phone] Specific Gravity1.014Ua PH Test Strip6.0Ua ColorYELLOWUa AppearanceHAZYUa WBC6Ua ProteinNEGUa GlucoseNEGUa KetonesNEGUa BilirubinNEGUa Urobilinogen<2.0Ua NitriteNEGUa Occult BloodMOD.CMP11/17/2017[facility] [phone].Albumin3.1.Alt18.Calcium8.6.Carbon Dxemhfv33.Aqhwagfs526 .Creatinine-LC1.13.Glucose Vfpuc214.Alkaline Phos78.Potassium3.7.Protein-Total 6.8.Iybqaf238.Ast7.BUN17.GFR Vklqndyxz80Nzhm58.Urine Prot/Creat Ratio02/17/2017 [place] [phone].Urine Prot/Creat Ratio0.07Miscellaneous Other02/17/2017[place], [place] [phone] Test - Put Test In Ordercompleted.Renal Panel -LC02/17/2017 [place] [phone].Albumin4.1.Calcium9.4.Carbon Aswomse81.Qybxveef726.Creatinine-LC 1.31.Phosphorus3.4.Qlpnpk862.BUN21.GFR-UJ42Irvb62.Potassium4.1.BMP W/Egfr-LC 08/07/2016[facility] [phone].Tfnyzu705.Potassium4.3.Zoesnecm500.Carbon Eynqxkb92.Calcium9.5 .Glucose Wmfba218.GFR-NL88Uonq89.Creatinine-LC1.17.BUN16.Hemoglobin A1c-LC 08/07/2016[facility] [phone].Hemoglobin J0f-BN7.1.Lipid Panel08/07/2016[facility] [phone].Txkxetqrwhi871.Cholester/HDL Ratio6.2High Density Ekaqmpovpsk64 .LDL/HDL Ratio79.LDL Kimugtfsfcw304.Gvunaexcswseg450.CBC W/O Differential 08/07/2016[facility] [phone].Jjxvfcmxet17.1.Hemoglobin Blood12.6.Platelet Count Iiaeb941.Red Blood Count4.91JMN00.2.White Blood Count7.6MCH (Corpuscular Hemoglobin)29.8MCHC (Corpuscular Hemog Conc)34.1Urine Ririwxt9406/08/2015[place], [place] [phone] Urine Routinesee report.Urinalysis-Pbzxadf4506/08/2015[place] [phone] Specific Gravity1.020Ua PH Test Strip5.0Ua ColoryellowUa AppearanceclearUa ProteinnegativeUa GlucosenegativeUa BilirubinnegativeUa UrobilinogennormalUa Nitritenegative.Urine Protein/Creat. Xkkgkb8406/08/2015[place], [place] [phone].Urine Protein Xkchgo37.Urine Creatinine Pxspcv339.4.Urine Prot/Creat Ratio0.05.Renal Panel06/08/2015[place], [place] [phone].Albumin4.0.Calcium8.9.Carbon Kmvhehe22.Zijwfzeg043.Creatinine-LC 1.29.Phosphorus3.0.Potassium3.6.Rhajco441.BUN14.GFR-TO50Hzlo05.Hemoglobin And Ynvodvpcfl04/04/2015[place], [place] [phone].Hemoglobin Blood12.8.Zvqndfxxki67.2.Ua12/29/2014[place] [phone] AppearanceclearUa BilirubinnegativeUa BloodtraceUa Coloryellow Ua Epithelial Cells QL2 to 5Ua GlucosenegativeUa LeukonegativeUa Nitritenegative Ua PH Test Strip5.0Ua ProteinnegativeUa RBC0 to 2Ua Specific Gravity1.020Ua Urobilinogennormal.Renal Panel12/29/2014[place], [place] [phone].Albumin4.1.Calcium9.7.Carbon Lqgheuo34.Nudampia518.Creatinine-LC 1.50.Phosphorus4.2.Potassium4.1.Kxbpia094.BUN18.GFR-BX84Eyol09.Urine Protein/Creat. Zpqeus7412/29/2014[place], [place] [phone].Urine Protein Random6.Urine Creatinine Qrrclf970.0.Urine Prot/Creat Ratio0.05.Renal Panel12/06/2014[place] [phone].Albumin4.0.Calcium9.2.Carbon Fklhtgk34.Fkwkbbbm281.Creatinine-LC 1.32.Phosphorus3.0.Potassium4.3.Ahnfhm416.BUN17.GFR-BO24Jyok91.Urine Protein/Creat. Dkhuvy5412/06/2014[place], [place] [phone].Urine Protein Random7.Urine Creatinine Kvcgss787.8.Urine Prot/Creat Ratio0.04.Ua12/06/2014[place] [phone] AppearanceclearUa Bacteria1+Ua BilirubinnegativeUa BloodtraceUa ColoryellowUa Epithelial Cells QL2 to 5Ua GlucosenegativeUa LeukonegativeUa NitritenegativeUa PH Test Strip6.0Ua ProteinnegativeUa RBC2 to 5Ua Specific Gravity1.020Ua Urobilinogennormal.Complement C306/13/2014[place], [place] [phone].Complement C3140.Jrahcuonz20/09/2014[place] [phone].Magnesium2.3.Uhsujiy8106/13/2014[place] [phone].Calcium9.1.Qisiapzinm29/09/2014[place], [place] [phone].Phosphorus3.8.Urine Protein 24HR06/13/2014[place] [phone].Urine Protein Total 24H63.Urinalysis-Ehbtpsv7406/13/2014[place] [phone] Specific Gravity1.015Ua PH Test Strip6.0Ua ColorYELLOWUa AppearanceCLEARUa ProteinNEGATIVEUa GlucoseNEGATIVEUa BilirubinNEGATIIVEUa UrobilinogenNORMALUa NitriteNEGATIVE.V Ipth-Vitamin D006/13/2014[place] [phone].Ipth49.31.Vitamin D, 25 Zhnxugu56.9.Anca Panel-LC06/13/2014[place] [phone].Anca-C30.Anca-P7.Urine Protein Elect Ran06/13/2014[place] [phone] InterpretationNORMAL.GBM Antibody-LC06/13/2014[place] [phone].Fuiu-TGA-AU2.Complement Total (CH50)06/13/2014[place] [phone].Complement Total (CH50)115.Complement C406/13/2014[place] [phone].Complement C429.Ipth06/13/2014[place] [phone].Ipth49.31.Lipid Panel06/13/2014[place] [phone].Alqmlhtbikr09.Cholester/HDL Ratio5.6High Density Lbcspgcokld58 .LDL/HDL Ratio58.LDL Fdgqdppwqlq898.Mfqywtwtipwvd442.Immunofixation-Urine 06/13/2014[place], [place] [phone].Immunofixation-UrineNEGATIVE.Vitamin D, 25 Mmtjewf5006/13/2014[place] [phone].Vitamin D, 25 Aohfams16.9.Douiiltnrubu49/09/2014[place] [phone].Cryoglobulin0.Hepatitis B-Surface Cejotiq3506/13/2014[place] [phone].Hepatitis B-Surface AntigenNON REACTIVE.Hepatitis C006/13/2014 [place] [phone].Hepatitis CNON REACTIVE.Immunofixation-Serum06/13/2014[place], [place] [phone].Immunofixation-SerumNEGATIVE.Hemoglobin And Aoklnxgxmd35/09/2014 [place] [phone].Hemoglobin Blood13.0.Uegmtvxugc89.9.Urine Eosinophils Random 06/13/2014[place], [place] [phone].Urine Eosinophils RandomNONE SEEN.BUN06/13/2014[place], [place] [phone].BUN18.Creatinine-LC06/13/2014[place] [phone].Creatinine-LC1.27.GFR-LC06/13/2014[place] [phone].GFR-OI05Ypvx64.Uidyuo6806/13/2014[place] [phone].Tynljd186.Wbvzkyltp11/09/2014[place] [phone].Potassium4.4.Qfahlbvm46/09/2014[place] [phone].Jgzxxwcq341.Carbon Yldjnka8006/13/2014[place] [phone].Carbon Ztsvdvi53.Renal Panel05/30/2014[facility] [phone].Albumin3.9.Calcium9.3.Carbon Luxspbj85.Fessmxio562.Creatinine-LC 1.41.Potassium3.6.Ajhude577.BUN16.GFR-HF51Ofaw75.GFR Odkbwvkr31Bebt37 .GFR Xoozabmib73Btca11.Urinalysis-Ukwsuac8005/30/2014[facility] [phone] Specific Gravity1.030Ua PH Test Strip5.0Ua ColoryellowUa AppearancehazyUa ProteinnegativeUa GlucosenegativeUa KetonesnegativeUa Bilirubin negativeUa UrobilinogennormalUa Nitritenegative.Renal Panel05/22/2014[facility] [phone].Albumin4.1.Calcium9.1.Carbon Krtfaap29.Toxclvnz257.Creatinine-LC 1.45.Potassium3.8.Bgkxsg088.BUN19.GFR-RB34Uqpa64.GFR Udmzoxvz86Heuh91 .GFR Welsfmytc67Dboq43.Renal Panel01/13/2014[facility] [phone].Albumin4.1.Calcium9.3.Carbon Gvbhfzt23.Jaxnsiij953.Creatinine-LC 1.26.Potassium4.1.Rogwwm667.BUN19.GFR-YV25Oipa98.GFR Ghhgvopp68Dbwi45 .GFR Pedhuvrav66Odir16 Encounters Type Date Location Provider Dx Diagnosis Office Visit 06/14/2025 2:20p [facility] Heather Forbes M.D. N11.9 Chronic tubulo-interstitial nephritis, unspecified N18.31 Chronic kidney disea se, stage 3a Office Visit 05/13/2024 1:00p [facility] SHUKRI Sebastian N11.9 Chronic tubulo-interstitial nephritis, unspecified N18.31 Chronic kidney disea se, stage 3a Office Visit 05/18/2023 11:00a [facility] Jerica Stokes N11.9 Chronic tubulo-interstitial nephritis, unspecified N18.31 Chronic kidney disea se, stage 3a D50.9 Iron deficiency anem ia, unspecified E55.9 Vitamin D deficiency , unspecified Office Visit 05/23/2022 11:00a [facility] Jerica Stokes N11.9 Chronic tubulo-interstitial nephritis, unspecified N18.31 Chronic kidney disea se, stage 3a D50.9 Iron deficiency anem ia, unspecified E55.9 Vitamin D deficiency , unspecified Office Visit 05/22/2021 1:30p [facility] Tequila Giles NP N11.9 Chronic tubulo-interstitial [...] stage 3 (moderate) Office Visit 05/04/2018 10:20a [facility] Heather Forbes M.D. N11.9 Chronic tubulo-interstitial nephritis, unspecified N18.3 Chronic kidney disea se, stage 3 (moderate) Office Visit 03/13/2017 2:00p [facility] Heather Forbes M.D. N11.9 Chronic tubulo-interstitial nephritis, unspecified N18.3 Chronic kidney disea se, stage 3 (moderate) E78.1 Pure hyperglyceridem ia Office Visit 06/15/2015 1:00p [facility] Heather king M.D. 585.3 Chronic Kidney Disease Stage 3 582.89 Interstitial Nephrit is 530.81 Esophageal Reflux Office Visit 12/15/2014 1:00p [facility] BRENDEN Boyer P 585.3 Chronic Kidney Disease Stage 3 582.89 Interstitial Nephrit is V58.64 Half-Way (Current)Us e Of Non-Steroid Antiinflammatories 530.81 Esophageal Reflux Office Visit 07/07/2014 11:40a [facility] Heather high M.D. 585.3 Chronic Kidney Disease Stage 3 582.89 Interstitial Nephrit is V58.64 Half-Way (Current)Us e Of Non-Steroid Antiinflammatories 530.81 Esophageal Reflux Office Visit 06/09/2014 1:00p [facility] Matheus ngo 585.3 Chronic Kidney Disease Stage 3 582.89 Interstitial Nephrit is V58.64 Half-Way (Current)Us e Of Non-Steroid Antiinflammatories 789.00 Pain Abdominal Unspe c Site Assessments Date Code Description Provider 06/14/2025 N11.9 Chronic tubulo-i nterstitial nephritis, unspecified Heather Heidyna M.D. 06/14/2025 N18.31 Chronic kidney disease, stag e 3a Heatherwoody Forbes M.DLori 05/13/2024 N11.9 Chronic tubulo-i nterstitial nephritis, unspecified RYAN SebastianC 05/13/2024 N18.31 Chronic kidney disease, stag e 3a RYAN SebastianC 05/18/2023 N11.9 Chronic tubulo-i nterstitial nephritis, unspecified Walthall, Jerica 05/18/2023 N18.31 Chronic kidney disease, stag e 3a Walthall, Jerica 05/18/2023 D50.9 Iron deficiency anemia, unsp ecified Kike, Jerica 05/18/2023 E55.9 Vitamin D deficiency, unspec ified Walthall, Jerica 05/23/2022 N11.9 Chronic tubulo-i nterstitial nephritis, unspecified Kike, Jerica 05/23/2022 N18.31 Chronic kidney disease, stag e 3a Kike, Jerica 05/23/2022 D50.9 Iron deficiency anemia, unsp ecified Walthall, Jerica 05/23/2022 E55.9 Vitamin D deficiency, unspec ified Walthall, Jerica 05/22/2021 N11.9 Chronic tubulo-i nterstitial nephritis, unspecified Heather Heidyna M.D. 05/22/2021 N11.9 Chronic tubulo-i nterstitial nephritis, unspecified Tequila Giles NP 05/22/2021 N18.30 Chronic kidney disease, stag e 3 unspecified Heather Benjaminadana M.D. 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 07/07/2014 582.89 Interstitial Nephritis Swapn a Kamadana M.D. 07/07/2014 V58.64 Half-Way (Curren t)Use Of Non-Steroid Antiinflammatories Heather Kamadana M.D. 07/07/2014 530.81 Esophageal Reflux Heather stevens M.D. 06/09/2014 585.3 Chronic Kidney Disease Stage 3 Doug Klein M.D. 06/09/2014 582.89 Interstitial Nephritis Kenroy Klein M.D. 06/09/2014 V58.64 Half-Way (Curren t)Use Of Non-Steroid Antiinflammatories Doug Klein M.D. 06/09/2014 789.00 Pain Abdominal Unspec Site S yasmin Klein M.D.
--- NOTE | 2025-07-25 10:53 | XR_ITS ---
The [address] [address] Patient Name: CHASTITY GASPAR MRN: [id number] date: 1980 Sex: F Assigned Patient Location: [facility] Current Patient Location: [facility] Accession/Order Number: [id number] Exam Date: 07/25/2025 11:10 Report Date: 07/25/2025 14:18 At the request of: DAMON PROCTOR Procedure: XR foot SHAHEEN min 3V BILATERAL FEET - 3 views each COMPARISON: 06/28/2025 CLINICAL DATA: Wound at the dorsal distal right second toe for the past 4 months. Left foot wound at the arch for the past month. Weightbearing AP, lateral and oblique views were obtained. There is artifact at the left foot from a sock. On the left, there is redemonstration of screws through the calcaneus as well as the remaining tarsal bones and proximal first second and fourth metatarsals. There our bony changes involving the tarsal bones compatible with history of Charcot foot. The appearance has not changed. There are no developing fractures, dislocation or bony destruction. Mild degenerative change is present at the first metatarsal phalangeal joint on the right. Spurring and small bony ossicles are again visualized along the dorsum of the tarsals on the right. Bilateral plantar calcaneal spurs are seen. A radiopaque foreign body is again visualized projecting between the left second and third metatarsal shafts. There is no significant soft tissue swelling. XR/XR foot SHAHEEN min 3V IMPRESSION: STABLE POSTOPERATIVE CHANGES AT THE LEFT FOOT WHERE THERE IS ALSO AGAIN NOTED TO BE CHANGES OF CHARCOT FOOT AND A FOREIGN BODY. NO ACUTE BONY FINDINGS OR SIGNIFICANT CHANGE. Impression dictated by: Tanya Caputo M.D. 07/25/2025 2:18 PM Dictation Location: [place] [address] Electronically authenticated by: [id number] Y Date: 07/25/2025 14:18
--- OUTSIDE RECORDS SUMMARY | 2025-07-25 10:53 | XMS_ITS | Clinical Summary ---
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
--- OUTSIDE RECORDS SUMMARY | 2025-07-25 10:53 | XMS_ITS | Clinical Summary ---
Author Organization [facility] Address [address] [place] [address] Care Team Providers Care Supervisor Denture Department Name Role Phone Alcides Adam MD Primary Care Provider [phone] Allergies Active AllergyReactionsCriticalityNoted DateCommentsChlorhexidineRashLow 03/03/20234200Ajqrwusrpe50/25/2024 Made her feel overly thirsty and caused bad smell and taste. Medications MedicationSigDispense QuantityRefillsLast FilledStart DateEnd DateStatus sertraline (Zoloft) 100 MG tablet 02/25/2023ctive gemfibrozil (Lopid) 600 MG tablet 02/12/2023ctive fluticasone (Flonase) 50 MCG/ACT nasal spray Administer 2 sprays into each nostril Daily09/22/2022ctive cholecalciferol (Vitamin D-3) 50 MCG (1999) tablet Take by mouthActive cetirizine (ZyrTEC) 10 MG tablet Take 10 mg by mouth in the morning.Active calcium 500 MG tablet Take 1 tablet by mouth in the morning and 1 tablet before bedtime.Active b complex vitamins capsule Take 1 capsule by mouth in the morning.Active biotin 10 MG tablet 1 (one) time each day at the same timeActive famotidine (Pepcid) 20 MG tablet Take 20 mg by mouth in the morning and 20 mg before bedtime.07/13/2023ctive montelukast (Singulair) 10 MG tablet Indications:Idiopathic progressive polyneuropathy,Non-seasonal allergic rhinitis due to pollenTake 1 tablet (10 mg) by mouth at bedtime 90 tablet 301/27/811121/27/2026Active pregabalin (Lyrica) 300 MG capsule Indications:Idiopathic progressive polyneuropathy,Non-seasonal allergic rhinitis due to pollenTake 1 capsule (300 mg) by mouth in the morning and 1 capsule (300 mg) before bedtime. 180 capsule 506Active Rimegepant Sulfate (Nurtec) 75 MG tablet dispersible Indications:Intractable 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Take 75 mg by mouth See administration instructions Take 1- 75mg tablet by mouth as needed at the onset of migraine. 16 tablet 1105Active nortriptyline (Pamelor) 50 MG capsule Indications:Idiopathic progressive polyneuropathy,Intractable 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Take 3 capsules (150 mg) by mouth at bedtime 270 capsule 6Active rOPINIRole (Requip) 1 MG tablet Indications:Restless Leg SyndromeTake 1 tablet (1 mg) by mouth in the morning and 1 tablet (1 mg) in the evening and 1 tablet (1 mg)before bedtime. 270 tablet 6Active ALPRAZolam (Xanax) 0.25 MG tablet Indications:ClaustrophobiaTake 1 tab 30-45 min before PAP therapy nightly 90 tablet 5Active dapagliflozin (Farxiga) 10 MG Take 10 mg by mouth in the morning.5Active sulfamethoxazole-trimethoprim (Bactrim) 400-80 MG tablet Take by mouthActive clindamycin (Cleocin) 300 MG capsule Take 300 mg by mouth in the morning and 300 mg at noon and 300 mg in the evening and 300 mg before bedtime.Active baclofen (Lioresal) 10 MG tablet Indications:Cervical paraspinal muscle spasmTAKE 2 TABLETS BY MOUTH AT BEDTIME FOR 30 DAYS 60 tablet 5Active Active Problems ProblemNoted DateDiagnosed QxgiAcloisgqluaevs88/04/2025 Assessment & Plan (03/14/2025 5:41 PM EDT): Add alprazolam 0.25 ahs. Orders: ALPRAZolam (Xanax) 0.25 MG tablet; Take 1 tab 30-45 min before PAP therapy nightly Assessment & Plan (12/06/2024 1:26 PM EST): Once machine is received, pt to call for Rx alprazolam 0.25 hs for better tolerance of mask on face. Trochanteric bursitis of both hips08/24/2023olyneuropathy due to type 2 diabetes sthaclhp44/16/2023Obstructive sleep apnea05/20/2023Hypersomnia 05/20/2023 Assessment & Plan (03/14/2025 5:41 PM EDT): Discussed modafinil. May start 100 qam if/when desired., but first optimize PAP use. Cervical paraspinal muscle spasm05/20/2023MRSA (methicillin resistant Staphylococcus aureus) bcalclbwvw96/15/2023ain in left foot05/19/2023cute esvrfaprnwo68/04/2023ilateral carpal tunnel bharzafu91/04/2023arpal tunnel syndrome of left wrist03/08/2023ervical disc hmcyqvbnebmw10/04/2023harcot's joint, left ankle and foot03/08/2023hronic migraine without aura, not intractable, without status rgsztbktcwa84/04/2023losed fracture of metatarsal bone03/08/2023losed nondisplaced fracture of second metatarsal bone of left foot03/08/2023losed fracture of navicular bone of foot03/08/2023losed nondisplaced fracture of intermediate cuneiform of left foot03/08/2023 Contracture, left ankle03/08/2023iscitis of thoracic qcygxk1503/08/2023 Disturbance of skin ehypwmmup72/04/2023Elevated C-reactive protein (CRP) 03/08/2023Idiopathic progressive kgwnaqhcjgrxjr45/04/9210Jdyakyrffpe89/04/2023 Infection of thoracic spine03/08/20232610Tavehhfu89/04/2023Limb pain03/08/2023Lumbar qiwogkfmqdsni56/04/2023Lumbosacral spondylosis without upsrkgstuo50/04/2023 Qicwdvzn81/04/4643Hmflcoj58/04/2023Hereditary and idiopathic neuropathy, uscnofxodhc72/04/2023rimary osteoarthritis, unspecified ankle and foot 03/08/2023Tarsal tunnel oritevxy55/04/2023Type 2 diabetes mellitus with diabetic zgblfnilabikxs60/04/2023re-/26/1417Ysrbwp48/25/2022Thyroid nodule 2Restless legs05/13/2021OSA (obstructive sleep apnea)05/11/2020 Assessment & Plan (03/14/2025 5:41 PM EDT): [...] Orders: Ambulatory referral to Neurology Epidural abscess ([facility])08/20/2018Septic ufsvqicym77/16/2018Abdominal pain 05/04/2018Pure papkazhnqtheokftu41/31/3500Ipxfihjmjqiihu94/31/2018Neoplasm of uncertain behavior of skin02/05/2018Peripheral wgegdofwll05/27/2018Basal cell carcinoma of skin of face09/16/2017 Overview (03/08/2023): Added automatically from request for surgery [id number] Overview: Added automatically from request for surgery [id number] Mixed jtjzghbdbhuvrg36/15/2017Carpal tunnel syndrome of right wrist03/05/2017 Vitamin D oflbgikcvf62/08/2014GERD (gastroesophageal reflux disease)09/08/2014 Chronic glomerulonephritis with pathological lesion in vizywl4706/09/2014Chronic renal impairment, stage 3 (moderate)06/09/2014Thoracic degenerative disc disease 05/09/2014Seasonal ugdbeehmh32/11/2014CRI (chronic renal insufficiency) 10/25/2013Depression with yiyxymz9506/24/20136299Zqvrltiiubwxi38/20/2013Fatigue 07/20/2012 Encounters DateTypeDepartmentCare MopqRkntqtzamcw27/20/2025 12:30 PM EDTAncillary Procedure [facility] [address] [place] [phone] Cervical paraspinal muscle spasm05/24/2025 11:30 AM EDTOffice Visit [facility] [address] [facility] [address] [place] [address] Jennie Barajas APRN-GRETEL BUCK (obstructive sleep apnea) (Primary Dx); Cervical paraspinal muscle spasm; Cervical zctuniuekkvth57/20/2025Telephone [facility] [address] [facility] [address] [place] [address] Gauri Jay MA TENS05/24/2025amboo flowsheet [facility] [address] [place] [address] Jennie Barajas APRN-GRETEL 05/24/20255782Bdxedx75/19/2025Telephone [facility] [address] [place] [phone] Nash Block MD from Last 3 Months Family History Medical HistoryRelationNameCommentsHeart attackFatherHypertensionFatherDiabetes Maternal GrandfatherHeart diseaseMaternal GrandfatherHypertensionMaternal GrandfatherDiabetesMaternal GrandmotherHeart diseaseMaternal Grandmother HypertensionMaternal GrandmotherDiabetesMotherHeart diseaseMotherHypertension MotherLung cancerMotherLung diseaseMotherStrokeMotherHeart diseasePaternal GrandfatherHeart diseasePaternal GrandmotherOtherSonSyringomyeliaRelationName StatusCommentsFatherAliveMaternal GrandfatherMaternal GrandmotherMotherDeceased Paternal GrandfatherDeceasedPaternal GrandmotherDeceasedSonAlive Social History Tobacco UseTypesPacks/DayYears UsedDateSmoking Tobacco: NeverSmokeless Tobacco: Never Tobacco Cessation:Counseling Given: Not Answered Alcohol UseStandard Drinks/WeekCommentsNot Currently0 (1 standard drink = 0.6 oz pure alcohol)1-2 times a yearCommentsUnknownSex and Gender Information ValueDate RecordedSex Assigned at BirthNot on fileLegal ZokWdjcjl24/15/2023 7:36 PM EDTGender IdentityNot on fileSexual OrientationNot on file Last Filed Vital Signs Vital SignReadingTime TakenCommentsBlood Hjxamlbb789/80005/24/2025 11:47 AM EDT Jvbev40220 12:32 PM EDTTemperature--Respiratory Bqqv558405/24/2025 11:47 AM EDTOxygen Htrgyjtlfy22%05/24/2025 11:47 AM EDTInhaled Oxygen Concentration-- Axfyjp97.3 kg (210 lb)05/24/2025 11:47 AM YLSAohsbz546.5 cm (5' 2 )05/24/2025 11:47 AM EDTBody Mass Index38.4108 11:47 AM EDT Plan of Treatment DateTypeDepartmentCare Team (Latest Contact Info)Famqagykfvx82/19/2025 1:00 PM ESTOffice Visit [facility] [address] [address] Jennie Barajas, SENIOR INFORMATION SECURITY CONSULTANT-[facility] [address] [facility] [place], [place] [id number] 08/29/2025 11:45 AM ESTOffice Visit [facility] [address] [address] Nash Block MD [address] [facility] [address] [id number] Procedures Procedure NamePriorityDate/TimeAssociated DiagnosisCommentsXR CERVICAL SPINE COMPLETE 4-5 IANPHSlmsefc24/20/2025 12:45 PM EDT Cervical paraspinal muscle spasm from Last 3 Months Results * XR cervical spine complete 4 to 5 views (05/24/2025 12:45 PM EDT)Anatomical RegionLateralityModalitySpine, C-spineRadiographic ImagingSpecimen (Source) Anatomical Location / LateralityCollection Method / VolumeCollection Time Received Time05/24/2025 3:37 PM EDT Impressions 05/24/2025 3:38 PM [...] interval is preserved. No fracture or spondylolisthesis. ??No high -grade osseous neuroforaminal stenosis. Flexion/extension views demonstrate no [...] interval is preserved. No fracture orspondylolisthesis. No high- grade osseous neuroforaminal stenosis.Flexion/extension views demonstrate no abnormality. Prevertebral softtissues have a normal appearance. IMPRESSION: No acute osseous abnormality. ELECTRONICALLY SIGNED BY: Gregoroi Davila DO Authorizing ProviderResult TypeResult StatusJessica Barajas SENIOR INFORMATION SECURITY CONSULTANT-CNPIMG XR PROCEDURESFinal Result from Last 3 Months Insurance Care Teams Team MemberRelationshipSpecialtyStart DateEnd Date Back, MD Alcides [address] [place] [id number] PCP - GeneralFamily Medicine12/08/24
--- OUTSIDE RECORDS SUMMARY | 2025-07-25 10:56 | XMS_ITS | CCD ---
Author Organization [facility] CliniSyga Care Team Providers Care Cap Parts Cutter Name Role Phone Back, Felipe Unavailable Unavailable DAKSHA KING Unavailable Unavailable CHASE JUARES Unavailable Unava ilable GHAZOUL, GAYE Unavailable Unavailable GHAZOUL, GAYE Unavailable Unavailable GHAZOUL, GAYE Unavailable Unavailable GHAZOUL, GAYE Unavailable Unavailable Back, Bill Unavailable SYSTEM, PROVIDER NOT IN Unavailable Unavaila ble HARTMAN, DERECK Unavailable Unavailable SYSTEM, PROVIDER NOT IN Unavailable Unavaila ble HARTMAN, DERECK Unavailable Unavailable GHAZOUL, GAYE Unavailable Unavailable SELF, SELF Unavailable Unavailable GHAZOUL, GAYE Unavailable Unavailable GHAZOUL, GAYE Unavailable Unavailable GHAZOUL, GAYE Unavailable Unavailable GHAZOUL, GAYE Unavailable Unavailable BACK, BILL Unavailable Unavailable HARTMAN, DERECK Unavailable Unavailable HARTMAN, DERECK Unavailable Unavailable GHAZOUL, GAYE Unavailable Unavailable BACK, BILL Unavailable Unavailable Hartman, Dereck Unavailable Unavailable Hartman, Dereck Unavailable Unavailable Hartman, Dereck Unavailable Unavailable Hartman, Dereck Unavailable Unavailable Hartman, Dereck Unavailable Unavailable Hartman, Dereck Unavailable Unavailable ZECHARIAH, JV Admitting Unavailable CURT SUMMERS Referring Unavailable BACK, FELIPE Primary Care Unavailable MORGAN LUIS Consulting Unavailable NANY HOLLIS Attending Unavailable KIERA TERRY Consulting Unavailable LITA MCCRAY Consulting Unavailable Hartman, Dav Admitting Unavailable Hartman, Dav Attending Unavailable Andrey Early Admitting Unavailable Andrey Early Attending Unavailable Chase Juares Admitting Unavailable Chase Juares Attending Unavailable Melchor Calderon Admitting Unavailable Melchor Calderon Attending Unavailable TRACE CASAS Attending Unavailable TRACE CASAS Referring Unavailable BACK, FELIPE Primary Care Unavailable Back, Felipe Primary Care Provider [phone] Back, Felipe Primary Care Provider Back, Felipe Primary Care Provider Unavailabl e Back , Felipe Primary Care Provider [phone] Back , Felipe Primary Care Provider [phone] Back , Felipe Primary Care Provider [phone] BACK, FELIPE Primary Care Unavailable MUTNAL, AMAR Admitting Unavailable MUTNAL, AMAR Attending Unavailable Back , Felipe Primary Care Provider NON STAFF Primary Care Provider UnavailMD Trace Mixon. Attending Provider [phone] Back , Felipe Primary Care Provider YOON COBB Referring Unavailable BACK, FELIPE Primary Care Unavailable Back , Felipe Primary Care Provider KALPESH ARENAS Attending Unavail able BACK, FELIPE Primary Care Unavailable Back , Felipe Primary Care Provider FRANCES HARRIS Admitting Unavailable FRANCES HARRIS Attending Unavailable FRANCES HARRIS Consulting Unavailable FRANCES HARRIS Admitting Unavailable FRANCES HARRIS Attending Unavailable [facility], DR PIPER Ackerman Consulting Unavailable HIGHLFRANCES HERNANDEZ Consulting Unavailable FRANCES HARRIS Admitting Unavailable FRANCES HARRIS Attending Unavailable [facility], DR EMILY Riojas Consulting Unavailable FRANCES HARRIS Consulting Unavailable Back , Felipe Primary Care Provider BACK, FELIPE Primary Care Unavailable ROBBIN SHOOK II Attending Un available Back , Felipe Primary Care Provider INDER Harris Attending Provider [phone] Frances Harris Attending Unavailable Frances Harris Admitting Unavailable Unavailable Primary Care Provider Unavailabl e BACK, FELIPE Referring Unavailable BACK, FELIPE Primary Care Unavailable BACK, FELIPE Admitting Unavailable DIMAS ADAIR Attending Unavailable Back , Bill Primary Care Provider FOZIA MENG Attending Unavailable LYNN BLOCK Attending Unavailable FOZIA MENG Referring Unavailable TRACE CASAS Attending Unavailable LYNN BLOCK Attending Unavailable ROBBIN SÁNCHEZ Attending Unavailumang e ROBBIN SÁNCHEZ Referring Unavailabl e ROBBIN SÁNCHEZ Attending Unavailabl e JENNIE VAN Attending Unavailable REHAN, JENNIE Referring Unavailable TRACE CASAS Attending Unavailable FOZIA MENG Attending Unavailable BACK, FELIPE Primary Care Unavailable FRANCES HARRIS Referring Unavailable BACK, FELIPE Referring Unavailable BACK, FELIPE Primary Care Unavailable BACK, FELIPE Attending Unavailable BACK, FELIPE Referring Unavailable BACK, FELIPE Primary Care Unavailable BACK, FELIPE Primary Care Unavailable SEVERO CASE Attending Unavailable ROBBIN SÁNCHEZ Attending UnavailROBBIN Otero Referring Unavailabl e BACK, FELIPE Primary Care Unavailable BACK, FELIPE Attending Unavailable BACK, FELIPE Referring Unavailable BACK, FELIPE Primary Care Unavailable BACK, FELIPE Referring Unavailable BACK, FELIPE Primary Care Unavailable BACK, FELIPE Primary Care Unavailable DAMON LINDER Referring Unavailable JANEL SAMSON Referring Unavailable BACK, FELIPE Primary Care Unavailable Allergies Allergy ClassificationReported Allergen(s)Allergy TypeDate of OnsetReaction(s) Facility (20 sources)Chlorhexidine; Translations: [CHLORHEXIDINE]Drug [id number] [facility] (12 sources)topiramate; Translations: [TOPIRAMATE]Drug Cstzgns28-07-2333Koqiw (See Comments)[facility] (20 sources)TopiramatePropensity to adverse cwvfygpmf29-25-1769[facility] (1 source)Chlorhexidine; Translations: [Chlorhexidine Gluconate]Drug Allergy [facility] Medications Current Medications MedicationDrug Class(es)DatesSig (Normalized)Sig (Original)acetaminophen 325 mg / HYDROcodone bitartrate 5 mg oral tablet (10 sources)Opioid AgonistStart: 45-44-7625NWWLAnvuvjx-acetaminophen (NORCO) 5- 325 MG per tablettake 1 tablet by mouth every eight hours as neededhydroCODone- acetaminophen 5-325 MG Tab tablet take 1 tablet by mouth every 8 hours as needed. ActiveALPRAZolam 0.25 mg oral tablet (20 sources)BenzodiazepineStart: 75-10-8519gbho 1 tablet by mouth once daily ALPRAZolam (XANAX) 0.25 MG tablet Take 1 tablet by mouth nightly. 03/14/2025 Activeamoxicillin 875 mg / clavulanate 125 mg oral tablet (1 source)Penicillin-class AntibacterialStart: 08-08-2020 End: 21-07-6316hcxs 1 tablet by mouth twice dailyamoxicillin-clavulanate (AUGMENTIN) 875-125 MG per tablet Indications: Bacterial sinusitis Take 1 tablet by mouth 2 times daily for 7 days 14 tablet 0 08/08/2020 08/15/2020 Avbdhh48 hr amphetamine aspartate 5 mg / amphetamine sulfate 5 mg / dextroamphetamine saccharate 5 mg / dextroamphetamine sulfate 5 mg extended release oral capsule (4 sources)Central Nervous System StimulantStart: 02-25-2023 End: 75-24-0475nggkzufapodctvcni-amphetamine (ADDERALL XR) 20 MG 24 hr capsule 02/25/2023 10/11/2024 Discontinued (Patient Discharge)Start: 66-78-4365dqxx 1 capsule by mouth once daily in the morningamphetamine-dextroamphetamine (ADDERALL XR) 20 MG extended release capsule Take 1 capsule by mouth every morning. 0 01/14/2023 Activeb complex vitamins (Vitamins B Complex) capsule (3 sources)take 1 capsule by mouth once dailyb complex vitamins (Vitamins B Complex) capsule Take 1 (one) capsule by mouth daily . Activetake 1 capsule by mouth once dailyb complex vitamins (Vitamins B Complex) capsule Take 1 (one) capsule by mouth daily . 0 Activeb complex vitamins capsule (20 sources)take 1 capsule by mouth once dailyb complex vitamins capsule Take 1 capsule by mouth daily Activetake 1 capsule by mouth in the morningb complex vitamins capsule Take 1 capsule by mouth in the morning. Activetake 1 capsule by mouth once dailyb complex vitamins capsule Take 1 capsule by mouth daily 0 Activebaclofen 10 mg oral tablet (20 sources)gamma-Aminobutyric Acid-ergic AgonistStart: 12-16-2024 End: 18-04-6972dxrh 2 tablets by mouth at bedtimebaclofen (Lioresal) 10 MG tablet Indications: Cervical paraspinal muscle spasm TAKE 2 TABLETS BY MOUTH AT BEDTIME FOR 30 DAYS 60 tablet 3 05/24/2025 ActiveStart: 73-62-0857ctnn 2 tablets by mouth at bedtimebaclofen (Lioresal) 10 MG tablet Indications: Cervical paraspinal muscle spasm TAKE 2 TABLETS BY MOUTH AT BEDTIME FOR 30 DAYS 60 tablet 3 07/12/2024 ActiveStart: 16-89-7351xklu 1 tablet by mouth once dailybaclofen (LIORESAL) 10 MG tablet Take 1 tablet by mouth nightly 04/19/2022 Activebiotin 1 mg oral tablet (20 sources)Start: 38-58-7591bldb 1 tablet by mouth once dailyBiotin 1000 MCG TABS Take 1 tablet by mouth daily 02/26/2022 Activebiotin 10 MG tablet 1 (one) time each day at the same time ActivebusPIRone hydrochloride 10 mg oral tablet (6 sources)take 1 tablet by mouth three times dailybusPIRone (BUSPAR) 10 MG tablet Take 10 mg by mouth 3 times daily 0 ActiveCalcium (20 sources)Phosphate Binder, Calciumtake 1 tablet by mouth in the morning calcium 500 MG tablet Take 1 tablet by mouth in the morning and 1 tablet before bedtime. Activecalcium carbonate 500 mg oral tablet (15 sources)take 1 tablet by mouth twice dailycalcium carbonate (OSCAL) 500 MG TABS tablet Take 1 tablet by mouth 2 times daily Activecalcium carbonate (CALCIUM 500 ORAL) Take by mouth . Activecalcium carbonate (CALCIUM 500 ORAL) Take by mouth . 0 Activecephalexin 250 mg oral capsule (17 sources)Cephalosporin AntibacterialStart: 08-13-2023 End: 88-92-1152asof 1 capsule by mouth once daily as needed for urinary tract infectioncephALEXin (KEFLEX) 250 MG capsule Indications: Frequent UTI Take 1 capsule by mouth daily as needed (post-coital UTI prophylaxis) 30 capsule 1 08/13/2023 ActiveStart: 60-63-8728kcck 1 capsule by mouth once daily as needed for urinary tract infectioncephALEXin (KEFLEX) 250 MG capsule Indications: Frequent UTI Take 1 capsule by mouth daily as needed (post-coital UTI prophylaxis) 30 capsule 1 08/07/2022 Activecholecalciferol 0.05 mg oral capsule (20 sources)Vitamin DStart: 99-32-6159aqoc 1 capsule by mouth once daily Cholecalciferol (VITAMIN D) 2000 UNITS CAPS capsule Indications: Vitamin D deficiency Take 1 capsule by mouth daily. 30 capsule 12 09/11/2014 Active cholecalciferol (Vitamin D-3) 50 MCG (1999 UT) tablet Take by mouth Active cholecalciferol, vitamin D3, (VITAMIN D3) 2,000 unit Tab Take by mouth. Active clindamycin 300 mg oral capsule (14 sources)Lincosamide AntibacterialStart: 04-04-2025 End: 76-94-9063ybdqyugzhtx (CLEOCIN) 300 MG capsule 04/13/2025 ActiveStart: 00-80-9337kwgwjknsgqr (CLEOCIN) 150 MG capsulecyclobenzaprine hydrochloride 5 mg oral tablet (16 sources)Muscle Relaxanttake 0.5 tablet by mouth once dailycyclobenzaprine (FLEXERIL) 5 MG tablet Take 5 mg by mouth nightly 1/2 tablet every night 0 Activedapagliflozin 10 mg oral tablet (5 sources)Sodium-Glucose Cotransporter 2 InhibitorStart: 52-90-5524alhx 1 tablet by mouth once daily in the morningdapagliflozin (FARXIGA) 10 MG tablet Indications: Stage 3a chronic kidney disease (HCC) , Pre-diabetes Take 1 tablet by mouth every morning 90 tablet 1 06/19/2025 ActiveStart: 79-84-2827rcfl 1 tablet by mouth once daily in the morningdapagliflozin (FARXIGA) 10 MG tablet Indications: Stage 3a chronic kidney disease (HCC) , Pre-diabetes Take 1 tablet by mouth every morning 90 tablet 1 04/18/2025 Dyzgqs15 hr desvenlafaxine succinate 25 mg extended release oral tablet (1 source)Serotonin and Norepinephrine Reuptake InhibitorStart: 07-29-2021 desvenlafaxine succinate (PRISTIQ) 25 MG TB24 extended release tablet 25 mg daily 0 07/29/2021 Activedextromethorphan hydrobromide 15 mg / guaiFENesin 400 mg / pseudoephedrine hydrochloride 60 mg oraltablet (1 source)alpha-Adrenergic Agonist, Uncompetitive D-klzctj-Q-aspartate Receptor Antagonist, Sigma-1 AgonistStart: 02-13-2021 End: 64-17-8353drll 1 tablet by mouth every six hours as needed Tahkycsmbtusasx-HS-ND (CAPMIST DM) 60-15-400 MG TABS Take 1 tablet by mouth every 6 hours as needed(Sinus pressure) 28 tablet 0 02/13/2021 02/20/2021 Active doxycycline hyclate 100 mg oral capsule (15 sources)Tetracycline-class DrugStart: 09-20-2018 End: 19-60-2801bxex 1 capsule by mouth twice dailydoxycycline hyclate (VIBRAMYCIN) 100 MG capsule Indications: MRSA (methicillin resistant Staphylococ cus aureus) septicemia (HCC) Take 1 capsule by mouth 2 times daily 180 capsule 3 07/28/2019 07/27/2020 ActiveDULoxetine 30 mg delayed release oral capsule (6 sources)Serotonin and Norepinephrine Reuptake InhibitorStart: 04-19-2022 DULoxetine (CYMBALTA) 30 MG extended release capsuletake 1 capsule by mouth once dailyDULoxetine (CYMBALTA) 60 MG capsule Take 60 mg by mouth daily. 0 Active erythromycin 0.005 mg/mg ophthalmic ointment (2 sources)Macrolide, Macrolide AntimicrobialStart: 21-99-6017gpgvkzggrgdq 5 MG/GM Ointment ophthalmic ointment Apply to eye incisions 2 x a day 1 Tube 0 08/19/2017 Activefamotidine 20 mg oral tablet (20 sources)Histamine-2 Receptor AntagonistStart: 06-50-5568vbzckagetn (PEPCID) 20 MG tablet Indications: Gastroesophageal reflux disease without esophagitis TA KE 1 TABLET TWICE A DAY 180 tablet 3 04/03/2025 ActiveStart: 25-04-5145aifp 1 tablet by mouth twice dailyfamotidine (PEPCID) 20 MG tablet Indications: Gastroesophageal reflux disease without esophagitis Take 1 tablet by mouth 2 times daily 60 tablet 5 05/26/2023 ActiveStart: 63-55-8789xfsq 1 tablet by mouth twice dailyfamotidine (PEPCID) 20 MG tablet Indications: Gastroesophageal reflux disease without esophagitis Take 1 tablet by mouth 2 times daily 60 tablet 3 2022 Activefluconazole 150 mg oral tablet (1 source)Azole AntifungalStart: 39-85-9984jcfyuhqyiae (DIFLUCAN) 150 MG tablet Indications: Antibiotic-induced yeast infection Take 1 tablet by mouth at first sign of yeast infection and repeat in 72 hours for severe infection. 2 tablet 0 06/06/2021 Activefluticasone propionate 0.05 mg/actuat metered dose nasal spray (20 sources)CorticosteroidStart: 20-67-4729bukz 2 spray(s) nasal route once dailyfluticasone (FLONASE) 50 MCG/ACT nasal spray Indications: Seasonal allergies USE 2 SPRAYS IN EACH NOSTRIL DAILY 48 g 3 09/22/2022 ActiveStart: 51-12-4549nket 2 spray(s) nasal route once dailyfluticasone (Flonase) 50 MCG/ACT nasal spray Administer 2 sprays into each nostril Daily 09/22/2022ctiveStart: 01-54-2459aodn 2 spray(s) nasal route in the morningfluticasone (Flonase) 50 MCG/ACT nasal spray Administer 2 sprays into each nostril in the morning. 1 11/23/2021 ActiveStart: 34-44-8205ycuc 2 spray(s) nasal route once daily fluticasone (FLONASE) 50 MCG/ACT nasal spray Indications: Seasonal allergies 2 sprays by Each Nostril route daily 3 each 1 04/11/2022 ActiveStart: 02-13-2021 take 2 spray(s) nasal route once dailyfluticasone (FLONASE) 50 MCG/ACT nasal spray 2 sprays by Each Nostril route daily 3 Bottle 1 02/13/2021 Active fluticasone 50 MCG/ACT Suspension nasal spray 2 sprays by Nasal route daily. Activegabapentin 600 mg oral tablet (2 sources)Anti-epileptic AgentStart: 99-77-1823vyab 1 tablet by mouth twice dailygabapentin 600 MG Tab take 600 mg by mouth 2 times daily. 06/09/2017 Active gemfibrozil 600 mg oral tablet (20 sources)Peroxisome Proliferator Receptor alpha AgonistStart: 06-09-2017 gemfibrozil (LOPID) 600 MG tablet Indications: Mixed hyperlipidemia TAKE 1 TABLET TWICE A DAY 30 MINUTES BEFORE BREAKFAST AND SUPPER 180 tablet 3 02/06/2025 Activelansoprazole 30 mg delayed release oral capsule (5 sources)Proton Pump Inhibitortake 1 capsule by mouth once dailylansoprazole (PREVACID) 30 MG capsule Take 30 mg by mouth daily. 0 Activelinaclotide 0.145 mg oral capsule (10 sources)Guanylate Cyclase-C AgonistStart: 95-36-9958efcc 1 capsule by mouth once dailylinaclotide (LINZESS) 145 MCG capsule Indications: Drug-induced constipation Take 1 capsule by mouth daily 90 capsule 1 05/09/2024 Active lisdexamfetamine dimesylate 40 mg oral capsule (20 sources)Central Nervous System StimulantStart: 75-26-6326KKRDBEU 40 MG CAPS Take 50 mg by mouth daily. 03/04/2023 ActiveStart: 99-12-5862WBBYIXL 40 MG CAPS Start: 61-01-0161YPEGGNV 40 MG CAPS daily. 0 05/06/2021 ActiveStart: 01-10-2021 VYVANSE 20 MG CAPS End: 17-45-3677pktj 1 capsule by mouth in the morninglisdexamfetamine (Vyvanse) 50 MG capsule Take 50 mg by mouth in the morning. 09/14/2024 Discontinued (Ineffective)loperamide hydrochloride 2 mg oral capsule (1 source)Opioid AgonistStart: 01-21-2021 End: 02-18-3211kare 1 capsule by mouth four times daily as needed for diarrhea loperamide (RA ANTI-DIARRHEAL) 2 MG capsule Indications: Diarrhea in adult patient Take 1 capsule by mouth 4 times daily as needed for Diarrhea 20 capsule 0 01/21/2021 01/26/2021 Activemelatonin 3 mg oral tablet (17 sources) End: 39-89-4576avqfbjfqy 3 mg Tab Take by mouth nightly. 10/11/2024 Discontinued (Patient Discharge)methocarbamol 500 mg oral tablet (2 sources)Muscle RelaxantStart: 00-38-0344hburdlgetpgas (ROBAXIN) 500 MG tablet montelukast 10 mg oral tablet (20 sources)Leukotriene Receptor AntagonistStart: 09-22-2022 End: 43-82-9746qqzvxmytuua (SINGULAIR) 10 MG tablet Indications: Seasonal allergies TAKE 1 TABLET NIGHTLY 90 tablet 3 09/22/2022 ActiveStart: 04-11-2022 take 1 tablet by mouth once dailymontelukast (SINGULAIR) 10 MG tablet Indications: Seasonal allergies Take 1 tablet by mouth spwuzek38 tablet 1 04/11/2022 ActiveStart: 06-27-0984fbhhwckituf (SINGULAIR) 10 MG tablet nitrofurantoin, macrocrystals 25 mg / nitrofurantoin, monohydrate 75 mg oral capsule (1 source)Nitrofuran AntibacterialStart: 06-11-2021 End: 43-38-4526mccl 1 capsule by mouth twice dailynitrofurantoin, macrocrystal- monohydrate, (MACROBID) 100 MG capsule Indications: Acute cystitis with hematuria Take 1 capsule by mouth 2 times daily for 5 days 10 capsule 0 06/11/2021 06/16/2021 Activenortriptyline 50 mg oral capsule (20 sources)Tricyclic AntidepressantStart: 02-13-2025 End: 31-05-1912mihx 3 capsules by mouth once dailynortriptyline (PAMELOR) 50 MG capsule Take 3 capsules by mouth nightly 02/13/2025 02/13/2026 ActiveStart: 09-14-2024 End: 25-01-3335gsra 2 capsules by mouth at bedtimenortriptyline (Pamelor) 50 MG capsule Indications: Idiopathic progressive polyneuropathy , Intractable 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 (CMS/HCC) Take 2 capsules (100 mg) by mouth at bedtime 180 capsule 3 11/02/2024 02/13/2025 Discontinued (Reorder)Start: 06-10-2024 End: 41-16-3984lnee 2 capsules by mouth at bedtimenortriptyline (Pamelor) 25 MG capsule Indications: Idiopathic progressive polyneuropathy , Bilateral carpal tunnel syndrome , Restless legs , Intractable chronic migraine without aura and with statusmigrainosus (CMS/HCC) Take two capsules by mouth at bedtime. Total of 50 mg. 90 capsule 3 06/10/2024 09/14/2024 Discontinued (Reorder)Start: 11-12-2023 End: 91-19-4320ocvb 1 capsule by mouth at bedtimenortriptyline (Pamelor) 25 MG capsule Indications: Idiopathic progressive polyneuropathy , Bilateral carpal tunnel syndrome , Restless legs , Intractable chronic migraine without aura and with statusmigrainosus (CMS/HCC) Take 1 capsule (25 mg) by mouth at bedtime 90 capsule 3 11/12/2023 06/10/2024iscontinued (Reorder)PARoxetine hydrochloride 20 mg oral tablet (5 sources)Serotonin Reuptake InhibitorStart: 77-29-1772hdgu 1 tablet by mouth once dailyparoxetine 20 MG Tab take 20 mg by mouth daily. 06/09/2017 Active phentermine hydrochloride 37.5 mg oral tablet (3 sources)Sympathomimetic Amine AnorecticStart: 05-26-2023 End: 83-84-0881yoda 1 tablet by mouth once daily before breakfastphentermine (ADIPEX-P) 37.5 MG tablet Indications: Class 2 severe obesity due to excess calories with serious comorbidity and body mass index (BMI) of 38.0 to 38.9 in adult ([facility]) Take 1 tablet by mouth every morning (before breakfast) for 30 days. Max Daily Amount: 37.5 mg 30 tablet 0 05/26/2023 06/25/2023 ActiveStart: 05-27-2019 End: 76-83-4723blcx 40-44.9 capsules by mouth once daily in the morning phentermine (ADIPEX-P) 37.5 MG capsule Indications: Class 3 severe obesity due to excess calories without serious comorbidity with body mass index (BMI) of 40.0 to 44.9 in adult ([facility]) Take 1 capsule by mouth every morning for 30 days. 30 capsule 0 05/27/2019 06/26/2019 ActivepredniSONE 20 mg oral tablet (1 source)Start: 09-16-2020 End: 59-45-7286accx 3 tablets by mouth once dailypredniSONE (DELTASONE) 20 MG tablet Take 3 tablets by mouth daily for 5 days 15 tablet 0 Activepregabalin 300 mg oral capsule (20 sources)Start: 02-20-2022 End: 27-35-9281slzd 1 capsule by mouth twice dailypregabalin (LYRICA) 300 MG capsule Take 1 capsule by mouth 2 times daily. 02/20/2022 ActiveStart: 29-25-6170ymhz 1 capsule by mouth three times dailypregabalin (LYRICA) 150 MG capsule Indications: Epidural abscess , Discitis of thoracic region , Infection of thoracic spine (HCC) , Peripheral polyneuropathy Take 1 capsule by mouth 3 times daily for 30 days.. 90 capsule 0 08/25/2018 ActiveraNITIdine 150 mg oral tablet (1 source)Histamine-2 Receptor AntagonistStart: 20-09-5918ghvx 1 tablet by mouth twice dailyraNITIdine (ZANTAC) 150 MG tablet Indications: Epigastric abdominal pain Take 1 tablet by mouth 2 times daily 60 tablet 3 12/09/2019 Active rimegepant 75 mg disintegrating oral tablet (20 sources)Start: 22-38-4473Qoqkxnakik Sulfate (Nurtec) 75 MG tablet dispersible Indications: Intractable 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 Take 75 mg by mouth See administration instructions Take 1- 75mg tablet by mouth as needed at the onset of migraine. 16 tablet 11 10/31/2024 ActiveStart: 62-85-5303Vvcrikfzhi Sulfate (Nurtec) 75 MG tablet dispersible Indications: Intractable 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 (CMS/HCC) Take 75 mg by mouth See administration instructions Take 1- 75mg tablet by mouth as needed at the onset of migraine. 16 tablet 11 09/07/2024 ActiveStart: 51-56-9156Jncyassesx Sulfate (Nurtec) 75 MG tablet dispersible Indications: Intractable 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 (CMS/HCC) Take 75 mg by mouth See administration instructions. Take 1- 75mg tablet by mouth as needed at the onset of migraine. 16 tablet 11 08/20/2023 ActiveStart: 77-26-2800BXHLQA [address] 1 TABLET ON OR UNDER THE TONGUE EVERY OTHER DAY 01/02/2022 ActiverOPINIRole 1 mg oral tablet (20 sources)Nonergot Dopamine AgonistStart: 10-31-2024 End: 25-64-4485kyui 1 tablet by mouth in the morning, then take 1 tablet by mouth in the evening, then take 1 tablet by mouth at bedtimerOPINIRole (Requip) 0.5 MG tablet Indications: Restless legs Take 1 tablet (0.5 mg) by mouth in the morning and 1 tablet (0.5 mg) in the evening and 1 tablet (0.5 mg) before bedtime. 270 tablet 3 10/31/2024 02/13/2025 Discontinued (Reorder)Start: 43-43-9966yOQMMFHajv (Requip) 0.5 MG tablet Indications: Restless legs TAKE 1 TABLET THREE TIMES A DAY 270 tablet 3 08/24/2023 ActiveStart: 02-10-2023 rOPINIRole (REQUIP) 0.5 MG tabletStart: 04-02-2021 End: 72-44-2936cqje 1 tablet by mouth three times dailyrOPINIRole (REQUIP) 1 MG tablet Indications: Restless legs Take 1 tablet by mouth 3 times daily 270tablet 1 10/10/2024 ActiveStart: 80-25-8098vXEXOEAqdy (REQUIP) 0.5 MG tablettake 1 tablet by mouth twice dailyrOPINIRole (REQUIP) 0.5 MG tablet Take 0.5 mg by mouth 2 times daily 0 Activesertraline 100 mg oral tablet (20 sources)Serotonin Reuptake InhibitorStart: 12-62-7831cyfjvrwddh (Zoloft) 100 MG tablet 02/25/2023 ActiveStart: 39-65-7400urza 2 tablets by mouth once daily sertraline (ZOLOFT) 100 MG tablet Take 2 tablets by mouth daily Currently decreasing this medication 07/30/2020 ActiveStart: 79-25-8496toda 1 tablet by mouth once dailysertraline (ZOLOFT) 100 MG tablet Take 100 mg by mouth daily Currently decreasing this medication ActiveStart: 30-68-1373kbrw 2 tablets by mouth once dailysertraline (ZOLOFT) 50 MG tablet Take 100 mg by mouth daily 2 QD 0 07/06/2019 ActiveStart: 44-92-2969arxpasssrl (ZOLOFT) 50 MG tablet sucralfate 1000 mg oral tablet (1 source)Aluminum ComplexStart: 96-74-2325mjuf 1 tablet by mouth four times daily before mealtimesucralfate (CARAFATE) 1 GM tablet Indications: Epigastric abdominal pain Take 1 tablet by mouth 4 times daily (before meals and nightly) 120 tablet 0 12/09/2019 Activesulfamethoxazole 800 mg / trimethoprim 160 mg oral tablet (7 sources)Dihydrofolate Reductase Inhibitor Antibacterial, Sulfonamide AntimicrobialStart: 04-28-2022 End: 14-99-3833ecau 1 tablet by mouth once in the morning, then take 1 tablet by mouth once at bedtimesulfamethoxazole-trimethoprim (BACTRIM DS) 800-160 MG per tablet Indications: Acute cystitis with hematuria Take 1 tablet by mouth in the morning and 1 tablet before bedtime. Do all this for 7 days. 14 tablet 0 04/28/2022 05/05/2022 ActiveStart: 01-22-2022 End: 72-10-6076gonc 1 tablet by mouth twice dailysulfamethoxazole-trimethoprim (BACTRIM DS;SEPTRA DS) 800-160 MG per tablet Take 1 tablet by mouth 2times daily for 7 days 14 tablet 0 01/22/2022 01/29/2022 ActiveStart: 08-01-2021 End: 21-01-2202lkqz 1 tablet by mouth once dailysulfamethoxazole-trimethoprim (BACTRIM) 400-80 MG per tablet Indications: Frequent UTI , Urinary urgency , Urinary frequency Take 1 tablet by mouth daily Take one tablet after intercourse 30 tablet 10/30/2021 Activesulfamethoxazole-trimethoprim (Bactrim) 400-80 MG tablet Take by mouth Activethiamine 100 mg oral tablet (6 sources)Start: 08-20-2023 End: 34-55-4938vqvq 1 tablet by mouth in the morningthiamine (Vitamin B-1) 100 MG tablet Indications: Bilateral carpal tunnel syndrome , Idiopathic progressive polyneuropathy , Restless legs Take 1 tablet (100 mg) by mouth in the morning. 30 tablet 08/19/2024 ActivetiZANidine 4 mg oral tablet (14 sources)Central alpha-2 Adrenergic AgonistStart: 25-07-9760vaVTHnhchc (ZANAFLEX) 4 MG tablet Take by mouth nightly 0 05/05/2020 Activetopiramate 50 mg oral tablet (15 sources)Start: 09-22-2023 End: 08-60-3143blkggrsyid 50 MG tablet 09/22/2023 09/14/2024 Discontinued (Side effects)Start: 68-58-4723icvwwoqisn (TOPAMAX) 25 MG tabletvilazodone hydrochloride 40 mg oral tablet (8 sources)Start: 54-99-9403zdom 1 tablet by mouth once dailyvilazodone HCl (VIIBRYD) 40 MG TABS Indications: Depression with anxiety Take 1 tablet by mouth daily 30 tablet 3 05/27/2019 Active Completed/Discontinued Medications MedicationDrug Class(es)DatesSig (Normalized)Sig (Original)alendronic acid 70 mg oral tablet (2 sources)BisphosphonateStart: 07-01-2024 End: 66-30-6106bpqf 1 tablet by mouth once dailyalendronate (Fosamax) 70 MG tablet 1 tablet 30 minutes before the first food, beverage or medicine of the day with plain water Orally weekly for 94 days 07/01/2024 05/24/2025 Discontinued (Therapy completed)cetirizine hydrochloride 10 mg oral capsule (20 sources)Histamine-1 Receptor AntagonistStart: 06-09-2017 End: 17-13-9503uddmpgsnet 10 mg capStart: 73-48-8069Illqfkmjqq HCl (ALL DAY ALLERGY) 10 MG CapStart: 47-54-5875kjmt 1 tablet by mouth once dailycetirizine (ZYRTEC) 10 MG tablet TAKE 1 TABLET BY MOUTH DAILY. 30 tablet 4 02/11/2016 Dhyzzv717 ml ciprofloxacin 2 mg/ml injection (4 sources)Quinolone AntimicrobialStart: 04-04-2025 End: 40-38-3031261 mg, IntraVENous, ONCE, 1 dose, On Thu04/04/25 at 2200, Antimicrobial Indications: Skin and Soft Tissue InfectionStart: 04-04-2025 End: 10-10-4189rrnc 1 tablet by mouth twice dailyciprofloxacin (CIPRO) 500 MG tablet Take 1 tablet by mouth 2 times daily for 10 days 20 tablet 04/04/2025 04/14/2025 ActiveStart: 04-13-2021 End: 62-98-6599bznn 1 tablet by mouth twice dailyciprofloxacin (CIPRO) 250 MG tablet Indications: Acute cystitis with hematuria Take 1 tablet by mouth 2 times daily for 3 days 6 tablet 0 04/13/2021 04/16/2021 Activeclindamycin (CLEOCIN) 600 mg in sodium chloride 0.9 % 50 mL IVPB (1 source)Start: 04-04-2025 End: 75-65-6982885 mg, IntraVENous, ONCE, 1 dose, On Thu04/04/25 at 2200, Antimicrobial Indications: Skin and Soft Tissue Infectiondiclofenac sodium 0.01 mg/mg topical gel (20 sources)Nonsteroidal Anti-inflammatory DrugStart: 01-06-2023 End: 89-88-4331dtzdopijca sodium 1 % gel 01/06/2023 05/24/2025 Discontinued (Therapy completed)Start: 65-85-8935qnpqlwzndm sodium 1 % GELgadobenate dimeglumine (MULTIHANCE) injection 10 mL (2 sources)Start: 04-11-2025 End: 86-10-0630gbdn 1 dose intravenously once10 mL, IntraVENous, IMG ONCE PRN, 1 dose, Starting on Thu04/11/25 at 1244, Until Thu04/11/25 at 1245,OtherStart: 06-25-2022 End: 10-26-1916gbycgektbk dimeglumine (MULTIHANCE) injection 10 mLhydrOXYzine pamoate 50 mg oral capsule (20 sources)AntihistamineStart: 03-06-2023 End: 65-27-6959amvxGCUaemr pamoate (Vistaril) 50 MG capsule Indications: Allergy, subsequent encounter Take 1 capsule (50 mg) by mouth as needed at bedtime for itching. 90 capsule 1 03/06/2023 03/14/2025 Discontinuedicosapent ethyl 1000 mg oral capsule (15 sources)Start: 05-17-2019 End: 24-71-2301mqtg 2 capsules by mouth twice daily, then take 1 capsule by mouthIcosapent Ethyl (VASCEPA) 1 g CAPS capsule Indications: Mixed hyperlipidemia Take 2 capsules by mouth 2 times daily 120 capsule 5 05/17/2019 09/16/2020 Discontinued (LIST CLEANUP)methylPREDNISolone 125 mg injection (1 source)CorticosteroidStart: 09-16-2020 End: 61-63-9185diqqxrPGAVXQNjesks sodium (SOLU-MEDROL) injection 125 mgStart: 09-16-2020 End: 49-25-4396xtanbeKZASTXSsodrb sodium (SOLU-MEDROL) injection 125 mg2 ml orphenadrine citrate 30 mg/ml injection (1 source)Muscle RelaxantStart: 09-16-2020 End: 89-65-1281gcsrxdfbgcqs (NORFLEX) injection 30 mg50 ml sodium chloride 9 mg/ml injection (1 source)Start: 04-04-2025 End: ,000 mL (10.3 mL/kg), IntraVENous, at 1,935.5 mL/hr, Administer over 31 Minutes, ONCE, On Thu04/04/25 at 2200, For 1 dose Problems Active Problems Problem ClassificationProblemDateDocumented DateEpisodic/ChronicAnxiety disorders (20 sources)Anxiety; Translations: [Mixed anxiety and depressive disorder]Onset: 302470-39-6084DzunnedPprkwuw kidney disease (20 sources)Chronic kidney disease stage 3; Translations: [Chronic renal insufficiency]Onset: 784561-95-2702BuhbanyHsmdfwq kidney disease (16 sources)Chronic renal insufficiency; Translations: [Chronic kidney disease] Onset: 631221-54-2574Ryylenw ulcer of skin (9 sources)Deep tissue pressure injury; Translations: [Pressure-induced deep tissue damage of other site]Onset: 782314-73-8862XjndwvgFquelply mellitus with complications (20 sources)Polyneuropathy due to type 2 diabetes mellitus; Translations: [Type 2 diabetes mellitus with diabetic polyneuropathy]Onset: ChronicDisorders of lipid metabolism (20 sources)Mixed hypercholesterolemia and hypertriglyceridemia; Translations: [Mixed hyperlipidemia]Onset: 06-24-2013 Resolved: 588561-67-0824ElrigwbPchttetztt disorders (20 sources)Gastroesophageal reflux disease; Translations: [Gastro-esophageal reflux disease without esophagitis]Onset: 320435-01-7489CbmzstgAbrhuygv of lower limb (2 sources)Closed fracture of second metatarsal bone; Translations: [Nondisplaced fracture of second metatarsal bone, right foot, initial encounter for closed fracture]59-41-1056SicljpevVgosddzrxgaaq symptoms and ill-defined conditions (5 sources)Dysuria; Translations: [Dysuria]EpisodicHeadache; including migraine (20 sources)Migraine without aura, not refractory ; Translations: [Chronic migraine without aura, not intractable, without status migrainosus]Onset: 567207-03-7273IclwzhgXskopgxlbmdvl and screening for infectious disease (4 sources)Suspected disease caused by 2019-nCoV; Translations: [Suspected COVID-19 virus infection]EpisodicInfective arthritis and osteomyelitis (except that caused by tuberculosis or sexually transmitted disease) (20 sources)Osteomyelitis, unspecified; Translations: [Infection of thoracic spine]Onset: 682194-05-0106CfapuyfDxwbnlo and fatigue (20 sources)Fatigue; Translations: [Chronic fatigue, unspecified]Onset: 757893-18-0826BawnyckIodwjlwnz; nephrosis; renal sclerosis (20 sources)Chronic glomerulonephritis; Translations: [Chronic nephritic syndrome with unspecified morphologic changes]Onset: 414299-91-2605Ugihwpf Nutritional deficiencies (20 sources)Vitamin D deficiency; Translations: [Vitamin D deficiency, unspecified]Onset: 544660-75-4484SuizrrpTcsvbpesybbghx (20 sources)Degenerative joint disease of ankle AND/OR foot; Translations: [Primary osteoarthritis, unspecifiedankle and foot]Onset: ChronicOther acquired deformities (20 sources)Contracture of joint of left ankle; Translations: [Contracture, left ankle]Onset: 510022-52-2912VqqwekzVwijl acquired deformities (1 source)Deformity of lower limb; Translations: [Other specified acquired deformities of unspecified lower leg]50-12-7874RcuarpreBrnvx and unspecified benign neoplasm (1 source)Lipoma of skin and subcutaneous tissue of neck; Translations: [Benign lipomatous neoplasm of skin and subcutaneous tissue of head, face and neck] 84-96-4237WlpxximkCvtrw and unspecified benign neoplasm (2 sources)Benign lipomatous neoplasm of skin and subcutaneous tissue of head, face and neck; Translations: [Benign lipomatous neoplasm of skin and subcutaneous tissue of head, face and neck]Onset: 20-00-8971ZszqtcatOrkfn circulatory disease (4 sources)Other specified symptoms and signs involving the circulatory and respiratory systems; Translations:[OTH SPEC SX SIGNS INVLV CIRC RS]Onset: 44-53-6456HgxlhpyqXuqxu connective tissue disease (2 sources)Other muscle spasm; Translations: [Other muscle spasm]Onset: 70-36-6685WlkjjwjnXpbca connective tissue disease (1 source)Foot pain; Translations: [Pain in unspecified foot]EpisodicOther connective tissue disease (1 source)Foreign body; Translations: [Residual foreign body in soft tissue] EpisodicOther connective tissue disease (2 sources)Pain in left leg; Translations: [Pain in left leg]Onset: 01-06-2023 EpisodicOther connective tissue disease (5 sources)Pain in left foot; Translations: [PAIN IN LEFT FOOT]Onset: 01-28-2023 EpisodicOther connective tissue disease (20 sources)Spasm of cervical paraspinous muscle; Translations: [Other muscle spasm]Onset: 525954-20-1204VtgdvcuaXydkd connective tissue disease (8 sources)Pain in right foot; Translations: [Pain in right foot]04-06-2025 EpisodicOther diseases of kidney and ureters (2 sources)Disorder of kidney and ureter, unspecified; Translations: [Disorder of kidney and ureter, unspecified]Onset: 04-70-3402AudbpvisXmbqi hereditary and degenerative nervous system conditions (20 sources)Restless legs; Translations: [Restless legs syndrome]Onset: 218352-07-4171KaukdzpCsnpv lower respiratory disease (1 source)Dyspnea; Translations: [SOB (shortness of breath)]EpisodicOther lower respiratory disease (2 sources)Snoring; Translations: [Snoring]06-25-8346UsvahuxuUrwow nervous system disorders (3 sources)Polyneuropathy, unspecified; Translations: [Polyneuropathy, unspecified]Onset: 31-67-7047CrmamwkRzoeu nervous system disorders (20 sources)Peripheral nerve disease ; Translations: [Polyneuropathy, unspecified]Onset: 655147-28-0714UtjaaxxCocjt nervous system disorders (20 sources)Carpal tunnel syndrome of right wrist; Translations: [Carpal tunnel syndrome, right upper limb]Onset: 312020-94-1731QrykqnbVlnrf nervous system disorders (20 sources)Idiopathic progressive polyneuropathy; Translations: [Idiopathic progressive neuropathy]Onset: 943089-16-7647AlugmluDebjk nervous system disorders (20 sources)Bilateral carpal tunnel syndrome; Translations: [Carpal tunnel syndrome, bilateral upper limbs]Onset: 907062-08-6817QlnoisjRwlda nervous system disorders (20 sources)Carpal tunnel syndrome of left wrist; Translations: [Carpal tunnel syndrome, left upper limb]Onset: 732922-11-1649LsyuupgOmuqz nervous system disorders (20 sources)Inattention; Translations: [Attention and concentration deficit] Onset: 235779-70-3892WylrswoTzfbc nervous system disorders (20 sources)Disorder of the peripheral nervous system; Translations: [Hereditary and idiopathic neuropathy, unspecified]Onset: 628814-68-9915HykbpyqBcxpf nervous system disorders (20 sources)Tarsal tunnel syndrome; Translations: [Tarsal tunnel syndrome, unspecified lower limb]Onset: 568218-51-4094XxookjlZhcqw nervous system disorders (4 sources)Abnormal gait; Translations: [Unsteadiness on feet]92-09-6106Tmtltvnn Other nervous system disorders (13 sources)Carpal tunnel syndrome of right wrist; Translations: [Carpal tunnel syndrome on right]Onset: Other non-epithelial cancer of skin (15 sources)Basal cell carcinoma of face; Translations: [Basal cell carcinoma of skin of face]Onset: 062449-65-7179TruwhvmEslmd non-traumatic joint disorders (4 sources)Charcot's joint, left ankle and foot; Translations: [CHARCOTS JOINT LEFT ANKLE AND FO]Onset: 40-26-0743RicxcmoKfuvl non-traumatic joint disorders (3 sources)Charcot arthropathy of midfoot; Translations: [Charcot's joint, unspecified ankle and foot]71-98-4517EpavywzJjxrp non-traumatic joint disorders (20 sources)Acute arthropathy; Translations: [Arthropathy, unspecified]Onset: 324112-88-2395KqaexhvFqthv non-traumatic joint disorders (20 sources)Charcot's arthropathy; Translations: [Charcot's joint, left ankle and foot]Onset: 648626-14-7851EfteploDyfdr non-traumatic joint disorders (1 source)Pain in left ankle and joints of left foot; Translations: [PAIN IN LEFT ANKLE]Onset: 26-23-2354QfvrwbzfXpbfq nutritional; endocrine; and metabolic disorders (2 sources)Obesity caused by energy imbalance; Translations: [Other obesity due to excess calories]42-67-6697FxzvyboGzegh screening for suspected conditions (not mental disorders or infectious disease) (13 sources)Elevated C-reactive protein; Translations: [Elevated C-reactive protein (CRP)]41-40-0405Tbilg skin disorders (1 source)Mass of neck; Translations: [Localized swelling, mass and lump, neck] EpisodicOther upper respiratory disease (20 sources)Seasonal allergy; Translations: [Other seasonal allergic rhinitis] Onset: 505049-67-2506StcexwoWwnso upper respiratory disease (2 sources)Allergic rhinitis due to pollen; Translations: [Allergic rhinitis due to pollen]50-14-4608EnawxppDkhnnheb codes; unclassified (20 sources)Obstructive sleep apnea syndrome; Translations: [Obstructive sleep apnea (adult) (pediatric)]Onset: 738460-52-9332JmoiiykPlfomfrc codes; unclassified (20 sources)Hypersomnia; Translations: [Hypersomnia, unspecified]Onset: 312187-50-1319VtcmoxrGiiyfthk codes; unclassified (2 sources)Localized edema; Translations: [Localized edema]Onset: 01-06-2023 EpisodicResidual codes; unclassified (2 sources)Edema, generalized; Translations: [Generalized edema]04-10-2025 EpisodicSepticemia (except in labor) (20 sources)Sepsis; Translations: [Methicillin resistant Staphylococcus aureus infection]Onset: 08-15-2018 Resolved: 699194-93-2531MkqonhvuJxnl and subcutaneous tissue infections (4 sources)Infection of toe ; Translations: [Local infection of the skin and subcutaneous tissue, unspecified]91-72-6526FmyqhourLsrmwhspvoj; intervertebral disc disorders; other back problems (20 sources)Discitis, unspecified, thoracic region; Translations: [Degeneration of thoracic intervertebral disc]Onset: 492093-36-1925TblsobdDfuqlmzmwtn; intervertebral disc disorders; other back problems (20 sources)Radiculopathy, cervical region; Translations: [Acute thoracic back pain]Onset: 145157-34-1330UgsqrxngKmvbwjp disorders (20 sources)Thyroid nodule; Translations: [Nontoxic single thyroid nodule]Onset: 625200-18-1513KstufzrQawqzmgokcrg (1 source)Pressure-induced deep tissue damage of other site; Translations: [Pressure-induced deep tissue damage of other site]Onset: 12-65-5173Xojjuxw tract infections (20 sources)Acute cystitis; Translations: [Acute cystitis with hematuria]Onset: 28-75-9901BmzqmpvkQewkx infection (1 source)Viral disease; Translations: [Viral infection, unspecified]Episodic Past or Other Problems Problem ClassificationProblemDateDocumented DateEpisodic/ChronicAbdominal pain (20 sources)Female genital organ symptoms; Translations: [Pelvic and perineal pain]Onset: 08-22-7657WstvjbxhQebqucqmk infection; unspecified site (20 sources)Methicillin resistant Staphylococcus aureus infection; Translations: [Bacteremia due to Methicillinresistant Staphylococcus aureus] Resolved: 213604-57-2404VwyvcymwHfgudwxjsw and other anemia (20 sources)Anemia; Translations: [Anemia, unspecified]Onset: 2022 93-54-2595XerwgiakAnzfdmyn mellitus without complication (20 sources)Hyperglycemia; Translations: [Hyperglycemia, unspecified]Onset: 833572-79-3503DaafwljzUtukr and electrolyte disorders (20 sources)Lactic acidosis; Translations: [Acidosis]Onset: 08-15-2018 Resolved: 646300-77-1649DnrgotstQolnevhn of lower limb (20 sources)Closed fracture of second metatarsal bone; Translations: [Nondisplaced fracture of second metatarsal bone, left foot, initial encounter for closed fracture]Onset: 07-47-1379GljquwtaWdgxmizeo arthritis and osteomyelitis (except that caused by tuberculosis or sexually transmitted di sease) (20 sources)Suppurative arthritis; Translations: [Infective arthritis]Onset: 318374-60-0848FpjhfnjiFovrxch and fatigue (20 sources)Fatigue; Translations: [Other fatigue]Onset: EpisodicMedical examination/evaluation (2 sources)Encounter for general adult medical examination without abnormal findings; Translations: [Encounterfor general adult medical examination without abnormal findings]Onset: 10-95-9297UkuvmpfsJwzg disorders (20 sources)Depressive disorder; Translations: [Major depressive disorder, single episode, unspecified]Onset: 07-20-2012 Resolved: 715801-76-6086CbtetyjSrhjslcqn of unspecified nature or uncertain behavior (20 sources)Neoplasm of uncertain behavior of skin; Translations: [Neoplasm of uncertain behavior of skin]Onset: 348069-59-2446LwusmuthDztpb GAS CHARGER infection and poliomyelitis (20 sources)Extradural and subdural abscess, unspecified; Translations: [Epidural abscess]Onset: 366905-16-1279OnknhyimGxefj connective tissue disease (1 source)Spasm; Translations: [Spasm of muscle]EpisodicOther connective tissue disease (20 sources)Pain in left foot; Translations: [Pain in left foot]Onset: 648843-19-6266KisewkpbEqwkc connective tissue disease (20 sources)Pain in limb; Translations: [Pain in unspecified limb]Onset: 974000-28-1716XwotmaegQjhii connective tissue disease (20 sources)Muscle pain; Translations: [Myalgia, unspecified site]Onset: 648585-75-9963UpfmcvucGfggq connective tissue disease (20 sources)Bilateral trochanteric bursitis; Translations: [Trochanteric bursitis, right hip]Onset: 891435-46-7491IypijebpJfpvk connective tissue disease (1 source)Pain in right foot; Translations: [Pain in right foot]Onset: 72-97-7676WdtslzamXlquq diseases of kidney and ureters (1 source)Chronic renal insufficiency; Translations: [Disorder of kidney and ureter, unspecified]Onset: 099755-69-9006UvoiafyuCjtkm nervous system disorders (20 sources)Metabolic encephalopathy; Translations: [Metabolic encephalopathy] Resolved: 099700-05-9578BiiycsfVkrmy nervous system disorders (20 sources)Skin sensation disturbance; Translations: [Unspecified disturbances of skin sensation]Onset: 704913-20-7076ZvqujifxGjakg non-epithelial cancer of skin (20 sources)Basal cell carcinoma of skin; Translations: [Basal cell carcinoma of skin, unspecified]Onset: 080275-17-0662AvimxjurGsiaj screening for suspected conditions (not mental disorders or infectious disease) (20 sources)Elevated C-reactive protein; Translations: [Elevated C-reactive protein (CRP)]Onset: 527238-18-6621QarurkhvEgmwmzww codes; unclassified (20 sources)Insomnia; Translations: [Insomnia, unspecified]Onset: 06-04-2023 21-37-1542FyadqohsJcsyisciadig (1 source)Patient encounter qirncl69-57-9649 Results Test NameValueInterpretationReference RangeFacilityBasic Metabolic Panelon 41-75-5025Eflhn gap [Moles/Vol]8 mmol/LLow9 - 17 mmol/LBon [facility] Calcium [Mass/Vol]10.1 mg/dL8.6 - 10.4 mg/dLBon [facility] HospitalChloride [Moles/Vol]100 mmol/L98 - 107 mmol/LBon [facility] HospitalCO2 [Moles/Vol]29 mmol/L20 - 31 mmol/LBon [facility] HospitalCreatinine [Mass/Vol]1.4 mg/dLHigh 0.5 - 0.9 mg/dLBon [facility] HospitalEst, Glom Filt Oxoe55Hnj- PINFBon Green Cross HospitalComhavenwyck hospital on above: These results are not intended [...] therapy that affects renal tubular secretion. Glucose [Mass/Vol]87 mg/dL70 - 99 mg/dLBon [facility] HospitalPotassium [Moles/Vol]4.4 mmol/L3.7 - 5.3 mmol/LBon [facility] HospitalSodium [Moles/Vol] 137 mmol/L135 - 144 mmol/LBon [facility] HospitalUrea nitrogen [Mass/Vol]19 mg/dL6 - 20 mg/dLBon [facility] HospitalBasic Metabolic Profon 73-46-7986Fjkew gap [Moles/Vol]8 mmol/LLow9-17[facility] HospitalComment on above:Performed By: #### BMP, CBC, SED, CRP ####[facility] [address] [place] [address] Lab Director: Emily George, MDCalcium [Mass/Vol] 10.1 mg/dLNormal8.6-10.4[facility] on above:Performed By: #### BMP, CBC, SED, CRP ####[facility] [address] [place] [address] Lab Director: SHER Mirzahloride [Moles/Vol]100 mmol/AYvzzxq59-158VrhviPike Community Hospital on above: Performed By: #### BMP, CBC, SED, CRP ####[facility] [address] [place] [id number] Lab Director: Emily George MDCO2 [Moles/Vol]29 mmol/CKcngec19-51BjcamPike Community Hospital on above:Performed By: #### BMP, CBC, SED, CRP ####[facility] [address] [place] [address] Lab Director: SHER Mirzareatinine [Mass/Vol]1.4 mg/dLHigh0.5-0.9[facility] on above:Performed By: #### BMP, CBC, SED, CRP ####[facility] [address] [place] [address] Lab Director: Emily George MDGFR/1.73 sq M.predicted among non-blacks MDRD (S/P/Bld) [Vol rate/Area]47 mL/min/{1.73_m2} Low>60[facility] on above:Result Comment: These results are not intended for [...] or following therapy that affects renal tubular secretion.Performed By: #### BMP, CBC, SED, CRP ####[facility] [address] [place] [id number] Lab Director: Emily George MDGlucose [Mass/Vol]87 mg/dLNormal 70-99MJ.W. Ruby Memorial HospitalComment on above:Performed By: #### BMP, CBC, SED, CRP ####[facility] [address] [place] [address] Lab Director: ANNMARIE Mirzaotassium [Moles/Vol]4.4 mmol/L Normal3.7-5.3MJ.W. Ruby Memorial HospitalComment on above:Performed By: #### OTILIO, CBC, SED, CRP ####[facility] [address] [place] [address] Lab Director: MARIKA Mirzaodium [Moles/Vol]137 mmol/L Stpurf418-665OatxuNorwalk Memorial HospitalComment on above:Performed By: #### OTILIO, CBC, SED, CRP ####[facility] [address] [place] [address] Lab Director: Emily George MDUrea nitrogen [Mass/Vol]19 mg/dL Normal6-20[facility] HospitalComment on above:Performed By: #### BMP, CBC, SED, CRP ####[facility] [address] [place] [address] Lab Director: SHER Mirza-Reactive Proteinon 07-21-2025 CRP High sensitivity method [Mass/Vol]16.1 mg/LHigh0.0 - 5.0 mg/LBon [facility] HospitalCR [Mass/Vol]16.1 mg/LHigh0.0-5.0[facility] HospitalComhavenwyck hospital on above:Performed By: #### OTILIO, CBC, SED, CRP ####[facility] [address] [place] [address] Lab Director: Emily George MD CBCon 43-95-2011Yrhclaxxnlv distribution width (RBC) [Ratio]17.1 %High12.1 - 15.2 %Bon [facility] HospitalHematocrit (Bld) [Volume fraction]34.3 %Low36.0 - 46.0 %Bon [facility] HospitalHemoglobin (Bld) [Mass/Vol]11.0 g/dLLow12.0 - 16.0 g/dLBon [facility] HospitalInterpretation and review of laboratory results AbnormalBon Secours Mary Immaculate HospitalH (RBC) [Entitic mass]28.2 pg26.0 - 34.0 pgBon Secours Mary Immaculate HospitalHC (RBC) [Mass/Vol]32.1 g/dL31.0 - 37.0 g/dLBon [facility] CenterV (RBC) [Entitic vol]87.9 fL80.0 - 100.0 fLVcu Health Community Memorial HospitalPlatelet mean volume (Bld) [Entitic vol]11.4 fL6.0 - 12.0 fLVcu Health Community Memorial HospitalPlatelets (Bld) [#/Vol]218 10*3/uLVcu Health Community Memorial HospitalRBC (Bld) [#/Vol]3.90 10*6/uLLow4.00 - 5.20 m/[facility] HospitalWBC other (Bld) [#/Vol]9.9Bon [facility] CenterErythrocyte distribution width (RBC) [Ratio]17.1 %High12.1-15.2MercSharp Mary [facility] Hospital for WomenComment on above:Performed By: #### BMP, CBC, SED, CRP ####[facility] [address] [place] [address] Lab Director: Emily George MDHematocrit (Bld) [Volume fraction]34.3 %Low36.0-46.0[facility] HospitalComment on above:Performed By: #### BMP, CBC, SED, CRP ####[facility] Mmi[address] [place] [phone] lab Director: Emily George MDHemoglobin (Bld) [Mass/Vol]11.0 g/dLLow12.0-16.0[facility] Memorial HospitalComment on above:Performed By: #### BMP, CBC, SED, CRP ####[facility] X[address] [place] [address] Lab Director: VINCENT Mirza (RBC) [Entitic mass]28.2 sdYqkkgf21.0-34.0[facility] HospitalComment on above:Performed By: #### BMP, CBC, SED, CRP ####[facility] [address] [place], [facility]90 Lab Director: VINCENT MirzaC (RBC) [Mass/Vol]32.1 g/lOYbhsuc47.0-37.0[facility] HospitalComment on above:Performed By: #### BMP, CBC, SED, CRP ####[facility] Kvg6269 [facility], [place] [address] Lab Director: BHARATH Mirza (RBC) [Entitic vol]87.9 wJGlmsco79.0-100.0[facility] HospitalComment on above:Performed By: #### BMP, CBC, SED, CRP ####[facility] Vlu1674 [facility], [place] [address] Lab Director: Haja Mirza mean volume (Bld) [Entitic vol]11.4 fLNormal6.0-12.0 [facility] HospitalComment on above:Performed By: #### BMP, CBC, SED, CRP ####[facility] [address] [place], [phone] Director: Terrence Mirza (Bld) [#/Vol]218 10*3/uLNormal 140-450[facility] HospitalComment on above:Performed By: #### BMP, CBC, SED, CRP ####[facility] Wig1389 [facility] Hospitalosbaldo RdNcll[address], [facility] Lab Director: ELMO Mirza (Bld) [#/Vol]3.90 10*6/uLLow 4.00-5.20[facility] HospitalComment on above:Performed By: #### BMP, CBC, SED, CRP ####[facility] Hev7469 [place] [address] Lab Director: MISHA Mirza (Bld) [#/Vol]9.9 10*3/uL Normal3.5-11.0[facility] HospitalComhavenwyck hospital on above:Performed By: #### BMP, CBC, SED, CRP ####[facility] Rfa1704 [place] [address] Lab Director: Emily George MDNo Panel Informationon 03-38-2030Dpkwkyngqpqfzt and review of laboratory resultsAbnoBennett County Hospital and Nursing HomeSedimentation Rateon 08-23-0017HFA Photometric method (Bld) [Velocity]42HighBon Green Cross HospitalInterpretation and review of laboratory resultsAbnormBuchanan General HospitalSedimentation Rate42 mm/HrHigh0-20[facility] HospitalComhavenwyck hospital on above:Performed By: #### BMP, CBC, SED, CRP ####[facility] Ngx7262 [place] [address] Lab Director: Emily George MD Creatinine, Random Urineon 05-74-2102Ksunwbeyai (U) [Mass/Vol]52.4 mg/dL28.0 - 217.0 mg/dLBon Green Cross HospitalComhavenwyck hospital on above:Reference range defined for 1st morning urineCreatinine,Random Uron 90-31-7127Qqvhwfmyxf [Mass/Vol]52.4 mg/oVXfbujo93.0-217.0[facility] HospitalComhavenwyck hospital on above:Result Comment: Reference range defined for 1st morning urinePerformed By: #### RENP ####[facility] Qde6857 [place] [address] lab Director: Emily George MD#### URCRE, PTHNCA, VD25, URTP ####[place] Yvoxfbxnbgom[address] [place], [place] 5482108 Lab Director: Placido Pierce MDNo Panel Informationon 60-34-8614Tiu [facility], [place] 15-85-2397Rawinuxbrh.intact [Mass/Vol]40.0 pg/mL17.9 - 58.6 pg/mLBon [facility], Juvrpl98.0 pg/tMStgqjm15.9-58.6[facility] Promise Of VicksburgComment on above:Performed By: #### RENP ####[facility] Eyz7634 [place] [address] lab Director: Emily George MD#### URCRE, PTHNCA, VD25, URTP ####[facility] Ctukvhkyavvn4096 [place], [place] 9460108 Lab Director: Placido Pierce, MDProtein, urine, randomon 61-74-8860Xnxehfx (U) [Mass/Vol]mg/dLmg/dLBon Green Cross HospitalComhavenwyck hospital on above:No normal range established.Protein,Tot,[place] Uron 02-26-9337Gux Prot. Conc.<4NormalMercy Kpc Promise Of VicksburgComhavenwyck hospital on above:Result Comment: No normal range established.Performed By: #### RENP ####[facility] Yam[address] [place] [phone] Lab Director: Emily George MD#### URCRE, PTHNCA, VD25, URTP ####[facility] Yynhglcrwhga2334 [place], [place] 5362608 Lab Director: Placido Piecre MDRenal Function Panelon 44-30-9847Rrckkoi [Mass/Vol]4.2 g/dL3.5 - 5.2 g/dLBon Green Cross HospitalAni gap [Moles/Vol]12 mmol/L9 - 17 mmol/LBon [facility] Calcium [Mass/Vol]9.2 mg/dL8.6 - 10.4 mg/dLBon Green Cross HospitalChloride [Moles/Vol]99 mmol/L98 - 107 mmol/LBon Green Cross HospitalCO2 [Moles/Vol]24 mmol/L20 - 31 mmol/LBon [facility] Cross HospitalCreatinine [Mass/Vol]1.3 mg/dLHigh 0.5 - 0.9 mg/dLBon Green Cross HospitalEst, Glom Filt Fffo85Fgc- PINFBon Green Cross HospitalComment on above: These results are not intended [...] therapy that affects renal tubular secretion. Glucose [Mass/Vol]110 mg/aLKwxw11 - 99 mg/dLBon [facility] Interpretation and review of laboratory resultsAbnormalVcu Health Community Memorial Hospital Phosphate [Mass/Vol]3.9 mg/dL2.6 - 4.5 mg/dLBon Green Cross HospitalPotassium [Moles/Vol]4.5 mmol/L3.7 - 5.3 mmol/LBon Green Cross HospitalSodium [Moles/Vol] 135 mmol/L135 - 144 mmol/LBon Green Cross HospitalUrea nitrogen [Mass/Vol]23 mg/dLHigh6 - 20 mg/dLBon [facility] Surgical CenterAlbumin [Mass/Vol]4.2 g/dLNormal3.5-5.2[facility] Promise Of VicksburgComment on above:Performed By: #### RENP ####[facility] Egv[address] [place] [address] Lab Director: Emily George MD#### URCRE, PTHNCA, VD25, URTP ####[facility] Grgbqwdwpkic9961 [place] [address] Lab Director: Placido Pierce MDAnion gap [Moles/Vol]12 mmol/LNormal9-17[facility] Comment on above:Performed By: #### RENP ####[facility] Jzp8779 [place] [address] Lab Director: Emily George MD#### URCRE, PTHNCA, VD25, URTP ####[facility] Lpkw[address] [place] [address] [phone] Lab Director: Placido Pierce MDCalcium [Mass/Vol]9.2 mg/dL Normal8.6-10.4[facility] Memorial HospitalComment on above:Performed By: #### RENP ####[facility] Gvm5269 [place], [place] [phone] Director: Emily George MD#### URCRE, PTHNCA, VD25, URTP ####[address] [address] Lab Director: SHER Tavareshloride [Moles/Vol]99 mmol/OXbiwzh80-179ClrgfNorwalk Memorial HospitalComment on above:Performed By: #### RENP ####[facility] Awj8847 [place] [address] Lab Director: Emily George MD#### URCRE, PTHNCA, VD25, URTP ####[address] [address] Lab Director: Placido Pierce MDCO2 [Moles/Vol]24 mmol/LNormal 20-31[facility] Memorial HospitalComment on above:Performed By: #### RENP ####[facility] Qvz8093 [place] [address] Lab Director: Emily George MD#### URCRE, PTHNCA, VD25, URTP ####[facility] U[address]aml[address] [place] [address] [place] 1942008 Lab Director: SHER Tavaresreatinine [Mass/Vol]1.3 mg/dLHigh0.5-0.9[facility] on above:Performed By: #### RENP ####[facility] Ozm2931 [place], [place] 5621290 Lab Director: Emily George MD#### URCRE, PTHNCA, VD25, URTP ####[place] [address] [place], [place] 0019008 Lab Director: Plcaido Pierce MDGFR/1.73 sq M.predicted among non-blacks MDRD (S/P/Bld) [Vol rate/Area]51 mL/min/{1.73_m2}Low>60[facility] HospitalComment on above:Result Comment: These results are not intended for [...] or following therapy that affects renal tubular secretion.Performed By: #### RENP ####[facility] Hqk5656 [place], [place] 6066590 Lab Director: Emily George MD#### URCRE, PTHNCA, VD25, URTP ####[facility] Swswucogamkt8699 [place], [place] 4292408 Lab Director: Placido Pierce MDGlucose [Mass/Vol]110 mg/fKNmoa35-58ObnahSelect Medical Specialty Hospital - Boardman, Inc on above:Performed By: #### RENP ####[facility] Cia2556 [place], [place] 1737690 Lab Director: Emily George MD#### URCRE, PTHNCA, VD25, URTP ####[place] [address] [place] [address] Lab Director: ANNMARIE Tavareshosphojordan Inorg.3.9 mg/dL Normal2.6-4.5[facility] Memorial HospitalComment on above:Performed By: #### RENP ####[facility] Jbj3334 [place] [phone] Director: Emily George MD#### URCRE, PTHNCA, VD25, URTP ####[facility] Bzajjeiznwcu8585 [place] [address] Lab Director: ANNMARIE Tavaresotassium [Moles/Vol]4.5 mmol/LNormal3.7-5.3M[facility]. [facility] Comment on above:Performed By: #### RENP ####[facility] Mjx[address] [place] [phone] Lab Director: Emily George MD#### URCRE, PTHNCA, VD25, URTP ####[address] [address] Lab Director: MARIKA Tavaresodium [Moles/Vol]135 mmol/L Zdiufn284-205JpldnNorwalk Memorial HospitalComment on above:Performed By: #### RENP ####[facility] Msw2430 [place] [phone] Director: Emily George MD#### URCRE, PTHNCA, VD25, URTP ####[place] [address] [place] [address] Lab Director: Placido Pierce MDUrea nitrogen [Mass/Vol]23 mg/dLHigh6-20[facility] HospitalComment on above:Performed By: #### RENP ####[facility] Lyy8239 [place] [address] Lab Director: Emily George MD#### URCRE, PTHNCA, VD25, URTP ####[place] Hz[address]qxvrckyvm6865 [place], [place] 5069508 Lab Director: Placido Pierce MDVitamin D 25 Hydroxyon 496304-ypxaftretcnwxm D3 [Mass/Vol]29.2 ng/mLLow30.0 - 100.0 ng/mLVcu Health Community Memorial HospitalComment on above: Reference Range: Vitamin D status Range Deficiency <20 ng/mL Mild Deficiency 20-30 ng/mL Sufficiency 30-100 ng/mL Toxicity >100 ng/mL Interpretation and review of laboratory resultsAbnormalBon [facility] St. Benedict Health CenterVitamin D 25 OHon 71-38-5301Zviosmx D 25 OH29.2 ng/mLLow 30.0-100.0[facility] Memorial HospitalComhavenwyck hospital on above:Result Comment: Reference Range: Vitamin D status Range Deficiency <20 ng/mL Mild Deficiency 20-30 ng/mL Sufficiency 30-100 ng/mL Toxicity >100 ng/mLPerformed By: #### RENP ####[facility] Ksw[address] [place], [place] 8117590 Lab Director: Emily George MD#### URCRE, PTHNCA, VD25, URTP ####[place] [address]qjmmuqrl[address] [place], [place] 0726008 Lab Director: ARPAN Tavares CERVICAL SPINE COMPLETE 4- 5 VIEWSon 46-97-1129CL CERVICAL SPINE COMPLETE 4-5 VIEWSEXAMINATION: XR CERVICAL SPINE COMPLETE 4-5 VIEWS TECHNIQUE: 8 views of the cervical spine. CLINICAL HISTORY: Neck pain COMPARISONS: None available. FINDINGS: Mild dextrocurvature. Slight straightening of the cervical lordosis. Cervical vertebral body heights are maintained. Intervertebral disc heights are maintained. The lateral masses of C1 articulate symmetrically with C2. Atlantodental interval is preserved. No fracture or spondylolisthesis. No high-g rade osseous neuroforaminal stenosis. Flexion/extension views demonstrate no abnormality. Prevertebral soft tissues have a normal appearance. IMPRESSION: No acute osseous abnormality. ELECTRONICALLY SIGNED BY: Gregorio J Lola, DONormalNot AvailableBasic Metabolic Panelon 57-49-8226Caacr gap [Moles/Vol]12 mmol/L9 - 17 mmol/LBon Green Cross HospitalCalcium [Mass/Vol]9.3 mg/dL8.6 - 10.4 mg/dLBon [facility] Chloride [Moles/Vol]104 mmol/L98 - 107 mmol/LBon Green Cross HospitalCO2 [Moles/Vol]22 mmol/L20 - 31 mmol/LBon [facility] Cross HospitalCreatinine [Mass/Vol] 1.3 mg/dLHigh0.5 - 0.9 mg/dLBon Green Cross HospitalEst, Glom Filt Azqs76Idq- PINFBon Green Cross HospitalComment on above: These results are not intended [...] therapy that affects renal tubular secretion. Glucose [Mass/Vol]131 mg/eUYrwm68 - 99 mg/dLBon Green Cross HospitalPotassium [Moles/Vol]4.4 mmol/L3.7 - 5.3 mmol/LBon Green Cross HospitalSodium [Moles/Vol] 138 mmol/L135 - 144 mmol/LBon [facility] Cross HospitalUrea nitrogen [Mass/Vol]17 mg/dL6 - 20 mg/dLBon Green Cross HospitalBacentral state hospital Metabolic Profon 35-28-6450Nzfjf gap [Moles/Vol]12 mmol/LNormal9-17[facility] HospitalComment on above: Performed By: #### MORPHX, CRP, BMP, CBC, SED ####[facility] Sjn5543 [place] [address] lab Director: Emily George MD Calcium [Mass/Vol]9.3 mg/dLNormal8.6-10.4[facility] HospitalComment on above: Performed By: #### MORPHX, CRP, BMP, CBC, SED ####[facility] Pfz9540 [place] [address] Lab Director: Emily George MD Chloride [Moles/Vol]104 mmol/OJwsnod30-717DouyqPike Community Hospital on above:Performed By: #### MORPHX, CRP, BMP, CBC, SED ####[facility] Efy4524 [place] [address] Lab Director: SHER MirzaO2 [Moles/Vol]22 mmol/PQoffym17-93IqzpvNorwalk Memorial HospitalComhavenwyck hospital on above:Performed By: #### MORPHX, CRP, BMP, CBC, SED ####[facility] Gfq3593 [place] [address] Lab Director: SHER Mirzareatinine [Mass/Vol]1.3 mg/dLHigh0.5-0.9[facility] Memorial HospitalComhavenwyck hospital on above:Performed By: #### MORPHX, CRP, BMP, CBC, SED ####[facility] Gos2239 [place] [address] Lab Director: Emily George MDGFR/1.73 sq M.predicted among non-blacks MDRD (S/P/Bld) [Vol rate/Area]52 mL/min/{1.73_m2}Low>60[facility] HospitalComhavenwyck hospital on above:Result Comment: These results are not intended for [...] or following therapy that affects renal tubular secretion.Performed By: #### MORPHX, CRP, BMP, CBC, SED ####[facility] Dnl7490 [place] [address] Lab Director: Emily George MDGlucose [Mass/Vol]131 mg/dLHigh 70-99MJ.W. Ruby Memorial HospitalComment on above:Performed By: #### MORPHX, CRP, BMP, CBC, SED ####[facility] Vjn2319 [place] [address] Lab Director: ANNMARIE Mirzaotassium [Moles/Vol]4.4 mmol/L Normal3.7-5.3MJ.W. Ruby Memorial HospitalComment on above:Performed By: #### MORPHX, CRP, BMP, CBC, SED ####[facility] Vfd3897 [place] [address] Lab Director: MARIKA Mirzaodium [Moles/Vol] 138 mmol/SYmikif611-499DkwkwNorwalk Memorial HospitalComment on above:Performed By: #### MORPHX, CRP, BMP, CBC, SED ####[facility] Jvw3982 [place] [address] Lab Director: Emily George MDUrea nitrogen [Mass/Vol]17 mg/dLNormal6-20[facility] HospitalComment on above:Performed By: #### MORPHX, CRP, BMP, CBC, SED ####[facility] Kms2719 [place] 8776990 Lab Director: SHER Mirza-Reactive Proteinon 01-97-4232TQD High sensitivity method [Mass/Vol]6.2 mg/LHigh0.0 - 5.0 mg/LBon SecMetroHealth Parma Medical CenterCR [Mass/Vol]6.2 mg/LHigh0.0-5.0[facility] HospitalComment on above:Performed By: #### LIPR, LDLDIR, GLYHGB #### [facility] [address] [place] [address] Yeast Culture Developer: Placido Pierce MD #### CP #### [facility] Lab [address] [place] [phone] Yeast Culture Developer: SHER Mirzamateo 99-09-4164Tozjfegtpuo distribution width (RBC) [Ratio]19.4 %High12.1 - 15.2 %Vcu Health Community Memorial HospitalHematocrit (Bld) [Volume fraction]32.3 %Low36.0 - 46.0 %[facility] Community Memorial HospitalHemoglobin (Bld) [Mass/Vol]9.9 g/dLLow12.0 - 16.0 g/dLBon [facility] Cross HospitalInterpretation and review of laboratory resultsAbnormalBon Secours Mary Immaculate HospitalH (RBC) [Entitic mass]28.0 pg26.0 - 34.0 pgBon Secours Mary Immaculate HospitalHC (RBC) [Mass/Vol]30.7 g/dL Low31.0 - 37.0 g/dLBon [facility] Tri[facility] Medical CenterV (RBC) [Entitic vol]91.2 fL80.0 - 100.0 fLVcu Health Community Memorial HospitalPlatelet mean volume (Bld) [Entitic vol]11.7 fL 6.0 - 12.0 fLVcu Health Community Memorial HospitalPlatelets (Bld) [#/Vol]154 10*3/uLVcu Health Community Memorial HospitalRBC (Bld) [#/Vol]3.54 10*6/uLLow4.00 - 5.20 m/uLVcu Health Community Memorial HospitalWBC other (Bld) [#/Vol]3.8Bon [facility] Surgical CenterErythrocyte distribution width (RBC) [Ratio]19.4 %High12.1-15.2Mer[facility] Promise Of VicksburgComment on above:Performed By: #### MORPHX, CRP, BMP, CBC, SED ####[facility] Qgz1791 [place], [place] [phone] Director: Emily George MDHematocrit (Bld) [Volume fraction]32.3 %Low 36.0-46.0[facility] HospitalComment on above:Performed By: #### MORPHX, CRP, BMP, CBC, SED ####[facility] Vje25[address] [place] 8776990 lab Director: Emily George MDHemoglobin (Bld) [Mass/Vol]9.9 g/dLLow12.0-16.0[facility] HospitalComment on above:Performed By: #### MORPHX, CRP, BMP, CBC, SED ####[facility] Clp5008 [place] [address] Lab Director: ELISABET MirzaCH (RBC) [Entitic mass]28.0 chPawenn39.0-34.0[facility] HospitalComment on above:Performed By: #### MORPHX, CRP, BMP, CBC, SED ####[facility] Nwg2027 [place], [place] 5491690 Lab Director: VINCENT MirzaC (RBC) [Mass/Vol]30.7 g/dLLow31.0-37.0[facility] HospitalComment on above:Performed By: #### MORPHX, CRP, BMP, CBC, SED ####[facility] Shw4871 [facility] [place] [address] Lab Director: ELISABET MirzaCV (RBC) [Entitic vol]91.2 rHLplphp65.0-100.0[facility] on above:Performed By: #### MORPHX, CRP, BMP, CBC, SED ####[facility] Ika0683 [facility] [place] [address] Lab Director: Haja Mirza mean volume (Bld) [Entitic vol]11.7 fLNormal6.0-12.0[facility] HospitalComment on above:Performed By: #### MORPHX, CRP, BMP, CBC, SED ####[facility] Qzv5207 [facility] [place] [phone] Director: Terrence Mirza (Bld) [#/Vol]154 10*3/uLNormal 140-450Mercy Buckhorn HospitalComment on above:Performed By: #### MORPHX, CRP, BMP, CBC, SED ####[facility] Nbi3519 [facility] Hospitalosbaldo [place], [place] 8931690 Lab Director: LASHAY MirzaBC (Bld) [#/Vol]3.54 10*6/uLLow 4.00-5.20[facility] HospitalComhavenwyck hospital on above:Performed By: #### MORPHX, CRP, BMP, CBC, SED ####[facility] Vjy[address] [place] [place], [place] 3081590 Lab Director: LLOYD Mirza (Bld) [#/Vol]3.8 10*3/uL Normal3.5-11.0[facility] HospitalComment on above:Performed By: #### MORPHX, CRP, BMP, CBC, SED ####[facility] Cib[address] [place] [address] Lab Director: ELISABET MirzaORPHOLOGY CHECKon 29-13-9806Tjxzxjxjlg Rehan (Bld) [Interp]MODERATE ANISOCYTOSISRiverside Walter Reed HospitalMorphology Checkon 42-73-7812Echrgllpyx Rehan (Bld) [Interp]MODERATENormalNorwalk Memorial HospitalComment on above:Result Comment: ANISOCYTOSISPerformed By: #### LIPR, LDLDIR, GLYHGB #### [facility] [address] [place] [address] Yeast Culture Developer: Placido Pierce MD #### CP #### [facility] Lab [address] [place] [address] Yeast Culture Developer: Kiara Mirza Panel Informationon 31-75-6495Pwsbzbdoavkhle and review of laboratory resultsAbnormalBon [facility] Surgical CenterSedimentation Rateon 00-43-4776Bpgibwmgicnnj Rate19 mm/HrNormal0-20 [facility] HospitalComment on above:Performed By: #### MORPHX, CRP, BMP, CBC, SED ####[facility] Emj1265 [place] [address] Lab Director: Emily George MDESMeka Photometric method (Bld) [Velocity]19[facility] HospitalBon [facility] Metabolic Prof on 47-21-0922Iacahjw [Mass/Vol]4.2 g/dLNormal3.5-5.2M[facility] Comment on above:Performed By: #### LIPR, GLYHGB ####[facility] [place], [place] [phone] Director: Placido Pierce MD#### CP ####[facility] Eds4842 [place], [place] [phone] Director: Emily George MD#### INSU ####[address] [phone] Director: Placido Pierce, [facility] Ywq4729 [place] [address] Lab Director: Emily George MDAlbumin/Glob Ratio1.3Giyzvf5.0-2.5[facility] HospitalComment on above:Performed By: #### LIPR, GLYHGB ####[facility] [place] [address] Lab Director: Placido Pierce MD#### CP ####[facility] Nqc8245 [place], [place] [phone] Director: Emily George MD#### INSU ####[address] [phone] Director: Placido Pierce, [facility] Ijp5249 [place] [address] Lab Director: Manish Mirza Fjqg733 U/BDulf17-629VlkfmNorwalk Memorial HospitalComment on above:Performed By: #### LIPMeka GLYHGB ####[facility] Gfggrgbiykxz8251 [place] [address] Lab Director: Placido Pierce MD#### CP ####[facility] Wln2548 [place], [place] [phone] Director: Emily George MD#### INSU ####[address] [phone] Director: Placido Pierce, [facility] Wvl6512 [place], [place] [phone] Director: Emily George MDALT [Catalytic activity/Vol]23 U/LNormal5-33[facility] HospitalComment on above:Performed By: #### KINDRA GLYHGB ####[facility] Xhrpbehizifp1271 [place], [place] [phone])[phone] Director: Placido Pierce MD#### CP ####[facility] Psx0862 [place] [address] Lab Director: Emily George MD#### INSU ####[address] [phone] Director: Placido Pierce, [facility] Lod4136 [place], [place] [phone] Director: Myles Mirza gap [Moles/Vol]14 mmol/L Normal9-17[facility] HospitalComment on above:Performed By: #### LIPR, GLYHGB ####[facility] W[address]usrqyji2737 [place] [address] Lab Director: Placido Pierce MD#### CP ####[facility] Qhq9966 [place], [place] [phone] Director: Emily George MD#### INSU ####[place] [place], [place] [phone])[phone] Director: Placido Pierce, [facility] Tei[address] [place], [place] [phone])[phone] Director: Emily George MDAST [Catalytic activity/Vol]22 U/LNormal<32MerNuvance HealthComment on above:Performed By: #### LIPR, GLYHGB ####[place] [address] [place], [place] [phone] Director: Placido Pierce MD#### CP ####[facility] Qpw5438 [place], [place] [phone] Director: Emily George MD#### INSU ####[address] [phone] Director: Placido Pierce, [facility] Bwu2217 [place] [address] Lab Director: Emily George MDBilirubin [Mass/Vol]0.5 mg/dLNormal0.3-1.2MJ.W. Ruby Memorial HospitalComment on above:Performed By: #### LIPR, GLYHGB ####[place] [address] [place], [place] [phone] Director: Placido Pierce MD#### CP ####[facility] Tsu1982 [place], [place] [phone] Director: Emily George MD#### INSU ####[address] [phone] Director: Placido Pierce, [facility] Cas6952 [place], [place] [phone] Director: Emily George MD Calcium [Mass/Vol]9.4 mg/dLNormal8.6-10.4[facility] HospitalComment on above: Performed By: #### KINDRA GLYHGB ####[facility] Zbylgusepefw7668 [place], [place] [phone])[phone] Director: Placido Pierce MD#### CP ####[facility] Zfj4581 [place], [place] [phone] Director: Emily George MD#### INSU ####[address] [place], [place] [phone])[phone] Director: Placido Pierce, [facility] Aui0333 [place], [place] [phone] Director: Emily George MD Chloride [Moles/Vol]99 mmol/WLabojr64-328RbjgtNorwalk Memorial HospitalComment on above: Performed By: #### KINDRA GLYHGB ####[facility] Gbbtzwdapjir8091 [place], [place] [phone])[phone] Director: Placido Pierce MD#### CP ####[facility] Goa4952 [place], [place] [phone] Director: Emily George MD#### INSU ####[facility] [place], [place] [phone])[phone] Director: Placido Pierce, [facility] [facility] Tvk8581 [place], [place] [phone] Director: Emily George MD CO2 [Moles/Vol]26 mmol/HHdpfar82-49MvnnwNorwalk Memorial HospitalComment on above: Performed By: #### LIPR, GLYHGB ####[facility] Dlrgzbzpbwvt3999 [place], [place] [phone] Director: Placido Pierce MD#### CP ####[facility] Buq0556 [place] [address] Lab Director: Emily George MD#### INSU ####[address] [address] Lab Director: Placido Pierce, [facility] Oav0155 [place] [address] Lab Director: Emily George MD Creatinine [Mass/Vol]1.4 mg/dLHigh0.5-0.9Norwalk Memorial HospitalComment on above: Performed By: #### LIPR, GLYHGB ####[facility] [address] [place] [address] Lab Director: Placido Pierce MD#### CP ####[facility] Cbf[address] [place] [address] Lab Director: Emily George MD#### INSU ####[address] [address] Lab Director: Placido Pierce, [facility] [address] [place] [address] Lab Director: Emily George MD GFR/1.73 sq M.predicted among non-blacks MDRD (S/P/Bld) [Vol rate/Area]47 mL/min/{1.73_m2}Low>60Norwalk Memorial HospitalComment on above:Result Comment: These results are not intended for [...] or following therapy that affects renal tubular secretion.Performed By: #### LIPR, GLYHGB ####[facility] [address] [place] [address] Lab Director: Placido Pierce MD#### CP ####[facility] Xul7893 [place] [address] Lab Director: Emily George MD#### INSU ####[facility] [place] [address] Lab Director: Placido Pierce, [facility] Wgr0782 [place] [address] Lab Director: Emily George MDGlucose [Mass/Vol]114 mg/dLHigh 70-99MJ.W. Ruby Memorial HospitalComment on above:Performed By: #### LIPR, GLYHGB ####[facility] [place] [address] Lab Director: Placido Pierce MD#### CP ####[facility] Xrl2848 [place] [address] Lab Director: Emily George MD#### INSU ####[address] [address] Lab Director: Placido Pierce, [facility] Xxs4264 [place] [address] Lab Director: ANNMARIE Mirzaotassium [Moles/Vol]4.1 mmol/L Normal3.7-5.3MJ.W. Ruby Memorial HospitalComment on above:Performed By: #### LIPR, GLYHGB ####[facility] Ytnukaqqtees1307 [place] [address] Lab Director: Placido Pierce MD#### CP ####[facility] Zch2001 [place] [address] Lab Director: Emily George MD#### INSU ####[facility] [place] [address] Lab Director: Placido Pierce, [facility] [address] [place] [address], [place] [address] Lab Director: ANNMARIE Mirzarotein [Mass/Vol] 7.2 g/dLNormal6.4-8.3MJ.W. Ruby Memorial HospitalComment on above:Performed By: #### LIPR, GLYHGB ####[facility] Pqgbcsijdmxm3758 [place] [address] Lab Director: Placido Pierce MD#### CP ####[facility] Hpv6429 [place] [address] Lab Director: Emily George MD#### INSU ####[facility] Fhwmzibvdjdy7684 [place] [address] Lab Director: Placido Pierce, [facility] Buh5650 [place] [address] Lab Director: Emily George MD Sodium [Moles/Vol]139 mmol/NVrgibk468-594EplbkNorwalk Memorial HospitalComment on above: Performed By: #### LIPR, GLYHGB ####[facility] Mdyjrgekfhhq4243 [place] [address] Lab Director: Placido Pierce MD#### CP ####[facility] G[address] [place] [address] Lab Director: Emily George MD#### INSU ####[facility] Mafjmbvxcgmp6418 [place] [address] Lab Director: Placido Pierce, [facility] Rhw8500 [place] [address] Lab Director: Emily George MD Urea nitrogen [Mass/Vol]18 mg/dLNormal6-20Norwalk Memorial HospitalComment on above:Performed By: #### LIPR, GLYHGB ####[facility] Gnotcaamflrs6158 [place] [address] Lab Director: Placido Pierce MD#### CP ####[facility] [address] [place], [place] [phone] Director: Emily George MD#### INSU ####[facility] Pohbrpyvbnkf7967 [place] [address] Lab Director: Placido Pierce [facility] Ldf[address] [place], [place] [phone] Lab Director: Emily George [facility] TULSAomprehensive Metabolic Panelon 27-73-5366Hloymzv [Mass/Vol]4.2 g/dL3.5 - 5.2 g/dLBon [facility] HealthAlbumin/Globulin [Mass ratio]1.4 {ratio}1.0 - 2.5Bon [facility] HealthALP [Catalytic activity/Vol]109 U/LHigh 35 - 104 U/LBon [facility] HealthALT [Catalytic activity/Vol]23 U/L5 - 33 U/L Bon [facility] HospitalAnion gap [Moles/Vol]14 mmol/L9 - 17 mmol/LBon [facility] HealthAST [Catalytic activity/Vol]22 U/LNINF - 32 U/LBon [facility] Cross HospitalBilirubin [Mass/Vol]0.5 mg/dL0.3 - 1.2 mg/dLBon [facility] Calcium [Mass/Vol]9.4 mg/dL8.6 - 10.4 mg/dLBon [facility] HealthChloride [Moles/Vol]99 mmol/L98 - 107 mmol/LBon [facility] HealthCO2 [Moles/Vol]26 mmol/L20 - 31 mmol/LBon [facility] HospitalCreatinine [Mass/Vol]1.4 mg/dLHigh 0.5 - 0.9 mg/dLBon [facility] HealthEst, Glom Filt Riae93Fkm- PINFBon Green Cross HospitalComment on above: These results are not intended [...] therapy that affects renal tubular secretion. Glucose [Mass/Vol]114 mg/gCYcpr50 - 99 mg/dLBon [facility] Interpretation and review of laboratory resultsAbnoRiverside Shore Memorial Hospital Potassium [Moles/Vol]4.1 mmol/L3.7 - 5.3 mmol/LBon [facility] Cross HospitalProtein [Mass/Vol]7.2 g/dL6.4 - 8.3 g/dLBon [facility] Cross HospitalSodium [Moles/Vol]139 mmol/L135 - 144 mmol/LBon [facility] Cross HospitalUrea nitrogen [Mass/Vol]18 mg/dL6 - 20 mg/dLBon [facility] CenterHemoglobin A1Con 56-42-9198Nnbpvfk glucose Estimated from glycated hemoglobin (Bld) [Mass/Vol]123 mg/dLBon Green Cross HospitalComment on above:The ADA and AACC recommend providing the estimated average glucose result to permit better patient understanding of their HBA1c result. HbA1c (Bld) [Mass fraction]5.9 %4.0 - 6.0 %Bon [facility] Surgical CenterGlucose [Mass/Vol]123 mg/dLNoSt. Vincent Hospital on above:Result Comment: The ADA and AACC recommend providing the estimated average glucose result to permit better patient understanding of their HBA1c result.Performed By: #### LIPR, GLYHGB ####[facility] Xhehepsokvqd1598 [place] [address] Lab Director: Placido Pierce MD#### CP ####[facility] Vtq7234 [place] [address] Lab Director: Emily George MD#### INSU ####[address] [address] Lab Director: Placido Pierce [facility] Ixa6290 [facility] Hospitalosbaldo [place], [place] [phone] Lab Director: Emily George MD HbA1c (Bld) [Mass fraction]5.9 %Normal4.0-6.0Norwalk Memorial HospitalComment on above:Performed By: #### LIPR, GLYHGB ####[facility] Xxmyskfaieaw8942 [place], [place] [phone] Director: Placido Pierce MD#### CP ####[facility] Syk2945 [place], [place] [address])[phone] Director: Emily George MD#### INSU ####[facility] Dmuq[address]ly[address] [place] [address] [phone] Director: Placido Pierce, [place], [place] [address])[phone] Director: Emily George MDInsulinon 14-47-0560Pfxpoik52.0 mU/LNLima Memorial Hospital Comment on above:Performed By: #### KINDRA, GLYHGB ####[facility] Dfjgglbormms3445 [place], [place] [phone] Director: Placido Pierce MD#### CP ####[facility] Mzy9673 [place], [place] [address])[phone] Director: Emily George MD#### INSU ####[address] [phone] Director: Placido Pierce, [facility] [address] [place], [place] [address])[phone] Director: Richard Mirza RangeNormChillicothe VA Medical CenterComment on above: Result Comment: Fastin.6-24.9 30 min: 20-112 60 min: 29-88 90 min: 26-84 120 min: 22-79Performed By: #### LIPR, GLYHGB ####[facility] Twnzylvvndkm3252 [place], [place] [phone] Director: Placido Pierce MD#### CP ####[facility] Ure0646 [place] [phone] Director: Emily George MD#### INSU ####[facility] Aphsoxozzlrz9303 [place] [address] Lab Director: Placido Pierce, [facility] Kzo6166 [place] [address] Lab Director: Emily George [facility] – TULSAollection Info.FASTINGNormalNorwalk Memorial HospitalComment on above:Performed By: #### LIPR, GLYHGB ####[facility] Mkekonijiycr6018 [place] [address] Lab Director: Placido Pierce MD#### CP ####[facility] Lzi2733 [place] [phone] Director: Emily George MD#### INSU ####[facility] Zhjnqhmcpzxf7507 [place] [address] Lab Director: Placido Pierce, [facility] Rtt8641 [place] [address] Lab Director: Emily George MDInsulin, Totalon 83-13-0889Wozcmxw79.0 mU/LBon Green Cross HospitalInsulin CommentVirginia Hospital CenterInsulin Reference Range:Vcu Health Community Memorial HospitalComment on above:Fastin.6-24.9 30 min: 20-112 60 min: 29-88 90 min: 26-84 120 min: 22-79 Lipid Panelon 65-98-7556Mqraitfckjj [Mass/Vol]158 mg/dL0 - 199 mg/dLBon Green Cross HospitalComment on above: Cholesterol Guidelines: <200 Desirable 200-240 Borderline >240 Undesirable Cholesterol in HDL [Mass/Vol]31 mg/dLLow40 - PINF mg/dLBon [facility] Comment on above: HDL Guidelines: <40 Undesirable 40-59 Borderline >59 Desirable Cholesterol in LDL [Mass/Vol]59 mg/dL0 - 100 mg/dLBon [facility] Comment on above: LDL Guidelines: <100 Desirable 100-129 Near to/above Desirable 130-159 Borderline >159 Undesirable Direct (measured) LDL and calculated LDL are not interchangeable tests. Cholesterol in VLDL [Mass/Vol]68 mg/dLHigh1 - 30 mg/dLBon [facility] Cholesterol.total/Cholesterol in HDL [Mass ratio]5.1 {ratio}HighNINF - 5.0Vcu Health Community Memorial HospitalInterpretation and review of laboratory resultsAbnormalVcu Health Community Memorial HospitalTriglyceride [Mass/Vol]341 mg/dLHighNINF - 150 mg/dLBon [facility] HospitalComment on above: Triglyceride Guidelines: <150 Desirable 150-199 Borderline 200-499 High >499 Very high Based on AHA Guidelines for fasting triglyceride, July 2012. Lipid Profileon 74-01-9709Wfnhwhvgxpv [Mass/Vol]158 mg/dLNormal0-199Norwalk Memorial HospitalComment on above:Result Comment: Cholesterol Guidelines: <200 Desirable 200-240 Borderline >240 UndesirablePerformed By: #### LIPR, GLYHGB ####[facility] Kpulwarbacgc8966 [place] [address] Lab Director: Placido Pierce MD#### CP ####[facility] Sge4132 [place] [phone] Director: Emily George MD#### INSU ####[facility] Zpaidbzqzmxk6620 [place] [address] Lab Director: Placido Pierce [facility] Znk5687 [place] [address] Lab Director: SHER Mirzaholesterol in HDL [Mass/Vol]31 mg/dLLow>40Norwalk Memorial HospitalComhavenwyck hospital on above:Result Comment: HDL Guidelines: <40 Undesirable 40-59 Borderline >59 DesirablePerformed By: #### LIPR, GLYHGB ####[facility] Gwwsiyexxtuf5194 [place] [address] Lab Director: Placido Pierce MD#### CP ####[facility] Rbr9772 [place] [phone] Director: Emily George MD#### INSU ####[facility] [place] [address] [phone] Director: Placido Pierce, [facility] Djp9739 [place] [address] Lab Director: SHER Mirzaholesterol in LDL [Mass/Vol]59 mg/dLNormal0-100Norwalk Memorial HospitalComment on above:Result Comment: LDL Guidelines: <100 Desirable 100-129 Near to/above Desirable 130-159 Borderline >159 Undesirable Direct (measured) LDL and calculated LDL are not interchangeable tests.Performed By: #### LIPR GLYHGB ####[facility] [place] [address] Lab Director: Placido Pierce MD#### CP ####[facility] Naa8841 [place] [address] Lab Director: Emily George MD#### INSU ####[address] [address] Lab Director: Placido Pierce, [facility] Qxk3994 [place] [address] Lab Director: Emily George MD Cholesterol in VLDL [Mass/Vol]68 mg/dLHigh1-30Norwalk Memorial HospitalComment on above:Performed By: #### LIPR, GLYHGB ####[facility] Dxenaoeypcfv1654 [place], [place] [phone] Director: Placido Pierce MD#### CP ####[facility] Jys5403 [place] [phone] Director: Emily George MD#### INSU ####[facility] Bdxqvtwbalal8695 [place], [place] [phone] Director: Placido Pierce, [facility] Sub3303 [place] [address] Lab Director: Nelida Mirza.total/Cholesterol in HDL [Mass ratio]5.1 {ratio} High<5.0Norwalk Memorial HospitalComment on above:Performed By: #### LIPR, GLYHGB ####[facility] Shslzhrtlbwc8518 [place], [place] [phone] Director: Placido Pierce MD#### CP ####[facility] Krq9417 [place], [place] [phone] Director: Emily George MD#### INSU ####[address] [phone] Director: Placido Pierce, [facility] Guj[address] [place] [address] Lab Director: Emily George MDTriglyceride [Mass/Vol]341 mg/dL High<150Norwalk Memorial HospitalComment on above:Result Comment: Triglyceride Guidelines: <150 Desirable 150-199 Borderline 200-499 High >499 Very high Based on AHA Guidelines for fasting triglyceride, July 2012.Performed By: #### LIPMeka, GLYHGB ####[facility] Jtgdeffjwkjf2489 [place] [address] Lab Director: Placido Pierce MD#### CP ####[facility] Gms1187 [place] [address] Lab Director: Emily George MD#### INSU ####[facility] Tzgoxlehpsam2941 [place], [place] [phone] Director: Placido Pierce [facility] Pvn3040 [place] [address] [facility] Director: Emily George MD No Panel Informationon 27-26-9525ZggFauquier [facility] Foot - right WO and W contrast Chay 04-12-2025 1. There is an ulcer [...] again superimposed infection be difficult to include. MHPN RIS CONSOLIDATEDEXAM: MRI FOOT RIGHT W WO CONTRAST COMPARISON: [...] atrophic change likely related to chronic neuropathy. [facility] Robin Persaud MD - 04/12/2025 EXAM: MRI FOOT RIGHT [...] again superimposed infection be difficult to include. [facility] Foot - right WO and W contrast IVOrdered By: Robin Mcarthur on 29-75-3369Jor [facility] Work Phone: MRI FOOT RIGHT W WO CONTRASTon [id number]: MRI FOOT RIGHT W WO CONTRAST COMPARISON: [...] Signed by: Robin Mcarthur MD 04/12/25 Final resultMHPTRadiology, Radiologist, - 04/12/2025 EXAM: MRI FOOT RIGHT [...] by: Robin Mcarthur MD 04/12/25 Final result [facility] FOOT RIGHT W WO CONTRASTEXAM: MRI FOOT RIGHT W WO CONTRAST COMPARISON: [...] Signed by: Robin Mcarthur MD 04/12/25 Final resultNormalMercy Kpc Promise Of VicksburgRadiology Study observation (narrative) [facility] HealthcareMRI FOOT RIGHT W WO CONTRASTOrdered By: Radiologist Radiology on 01-19-7503DPPP [employer] Work Phone: bUN & Creatinineon 04-68-3212Hlcatfftba [Mass/Vol]1.3 mg/dLHigh0.5 - 0.9 mg/dLBon Green Cross HospitalEst, Glom Filt Qhud79Nku- PINF Bon [facility] on above: These results are not intended [...] tubular secretion. Interpretation and review of laboratory resultsAbnormalVcu Health Community Memorial Hospital Urea nitrogen [Mass/Vol]15 mg/dL6 - 20 mg/dLBon [facility] Surgical CenterBUN + Creatinineon 17-66-9326Prleqqizln [Mass/Vol]1.3 mg/dLHigh 0.5-0.9[facility] on above:Performed By: #### BUNCRT #### [facility] Lab [address] [place] [address] Yeast Culture Developer: Emily George MDGFR/1.73 sq M.predicted among non-blacks MDRD (S/P/Bld) [Vol rate/Area]52 mL/min/{1.73_m2}Low>60[facility] on above:Result Comment: These results are not intended for [...] or following therapy that affects renal tubular secretion.Performed By: #### BUNCRT #### [facility] Lab [address] [place] [phone] Yeast Culture Developer: Emily George MDUrea nitrogen [Mass/Vol]15 mg/dLNormal6-20[facility] Buckhorn HospitalComment on above:Performed By: #### BUNCRT #### [facility] Lab [address] [place] [address] Yeast Culture Developer: RUTH Mirza BUN + CREATININEon [id number] [Mass/Vol]1.3 mg/dLHigh0.5 - 0.9 mg/dLMissouri Southern HealthcareInterpretation and review of laboratory resultsAbMyMichigan Medical Center SaultMHPT DZFD36Bna- [facility] Comment on above: These results are [...] that affects renal tubular secretion. Urea nitrogen [Mass/Vol]15 mg/dL6 - 20 mg/dLMissouri Southern HealthcareOriginal Ordering Provider: ROBBIN DENTONFormerly Medical University [facility] Carolina HospitalMR Foot - right WO and W contrast Chay [id number] Study observation (narrative)[place] ChasityMetroHealth Parma Medical CenterXR Foot - right 2 Viewson 20-01-6801Nxonctr Result: XRAY RIGHT FOOT: AP/OBL- No fx. Lis franc diastasis concern with deformity. DP 2 mild cortical disruption 1-2mm possible. No bone density changesAtrium Health Wake Forest Baptist Cult,Woundon [id number],WoundSpecimen Description .TOE Direct Exam NO NEUTROPHILS SEEN [...] <=1 SUSCEPTIBLE Trimethoprim/Sulfa <=10 SUSCEPTIBLE Vancomycin 1 SUSCEPTIBLESusceptibleMercy Kpc Promise Of VicksburgComment on above: Performed By: #### WDC ####[address] [place], [place] [phone] lab Director: Placido Pierce [facility] Zzc[address] [place] [address] lab Director: Emily George MD XR Foot - right 2 Viewson [id number] Study observation (narrative)[facility] HealthcareBrain Natri. Peptideon 33-27-3321Weptuzygdjb peptide B (Bld) [Mass/Vol]262 pg/mLNormal<300Norwalk Memorial HospitalComment on above:Result Comment: An age-independent cutoff point of 300 pg/ml has a 98% negative predictive value excluding acute heart failure.Performed By: #### BNP, SED, CRP #### [facility] Lab [address] [place] [address] Yeast Culture Developer: Emily George MDBrain Natriuretic Peptideon 34-51-4016Bkjxxcdickt peptide B (Bld) [Mass/Vol]262 pg/mLNINF - 300 pg/mLVcu Health Community Memorial Hospital Comment on above:An age-independent cutoff point of 300 pg/ml has a 98% negative predictive value excluding acute heart failure. C-Reactive Proteinon 66-35-8467AIW High sensitivity method [Mass/Vol]46.7 mg/L High0.0 - 5.0 mg/LBChesapeake Regional Medical CenterInterpretation and review of laboratory resultsAbnormalBon Green Cross HospitalCRP [Mass/Vol]46.7 mg/LHigh 0.0-5.0Norwalk Memorial HospitalComment on above:Performed By: #### BNP, SED, CRP ####[facility] Wef4810 [place] [phone] Director: SHER MirzaBC with Auto Differentialon 04-04-2025 Basophils (Bld) [#/Vol]0.02 10*3/uLBon Green Cross HospitalBasophils/100 WBC (Bld)0 %0 - 2 %Bon [facility] HospitalEosinophils (Bld) [#/Vol]0.07 10*3/uLBon Green Cross HospitalEosinophils/100 WBC (Bld)1 %0 - 5 %Bon SecMetroHealth Parma Medical Center Erythrocyte distribution width (RBC) [Ratio]18.4 %High12.1 - 15.2 %Bon SecMetroHealth Parma Medical CenterHematocrit (Bld) [Volume fraction]30 %Low36.0 - 46.0 %Bon SecMetroHealth Parma Medical CenterHemoglobin (Bld) [Mass/Vol]9.6 g/dLLow12.0 - 16.0 g/dLBon Secours Knox Community HospitalImmature granulocytes (Bld) [#/Vol]0.13 10*3/uLBon Secours Knox Community HospitalImmature granulocytes/100 WBC (Bld)2 %0 - 5 %[facility] Interpretation and review of laboratory resultsAbnormalBon [facility] Health Lymphocytes/100 WBC (Bld)23 %15 - 40 %[facility] SecMetroHealth Parma Medical CenterLymphocytes/100 WBC (Bld)1.39 %[facility] Immaculate HospitalH (RBC) [Entitic mass]27 pg26.0 - 34.0 pgBon SecMetroHealth Parma Medical CenterMCHC (RBC) [Mass/Vol]32 g/dL31.0 - 37.0 g/dLBon SecMetroHealth Parma Medical CenterMCV (RBC) [Entitic vol]84.3 fL80.0 - 100.0 fLBon SecMetroHealth Parma Medical CenterMonocytes/100 WBC (Bld)6 %4 - 8 %[facility] Monocytes/100 WBC (Bld)0.37 %[facility] SecMetroHealth Parma Medical CenterNeutrophils/100 WBC (Bld)68 %47 - 75 %Bon SecMetroHealth Parma Medical CenterPlatelet mean volume (Bld) [Entitic vol]11.7 fL6.0 - 12.0 fLBon [facility]ours [facility] HealthPlatelets (Bld) [#/Vol]186 10*3/uLBon [facility] HealthRBC (Bld) [#/Vol]3.56 10*6/uLLow4.00 - 5.20 m/uLBon Green Cross HospitalSegmented neutrophils/100 WBC (Bld)4.09 %Bon SecMetroHealth Parma Medical CenterWBC other (Bld) [#/Vol]6.1Bon [facility] Knox Community HospitalBon Secours Knox Community HospitalCBC with Diffon 59-23-0546Dvo. Basophil0.02 k/uLNormal0.00-0.20[facility] Comment on above:Performed By: #### CDP #### [facility] Lab [address] [place] [phone] Yeast Culture Developer: Eagle Mirza.Imm.Granulocyte0.13 k/uLNormal0.00-0.30Norwalk Memorial HospitalComment on above:Performed By: #### CDP #### [facility] Lab [address] [place] [address] Yeast Culture Developer: MDAbs. HermesNeutrophil (Seg)4.09 k/uLNormal2.5-7.0Norwalk Memorial HospitalComment on above:Performed By: #### CDP #### [facility] Lab [address] [place] [address] Yeast Culture Developer: Emily George MDBasophils/100 WBC (Bld)0 %Normal0-2MGenesis Hospital HospitalComment on above:Performed By: #### CDP #### [facility] Lab [address] [place] [address] Yeast Culture Developer: Emily George MDEosinophils (Bld) [#/Vol]0.07 10*3/uLNormal 0.00-0.40Nor[facility] Memorial HospitalComment on above:Performed By: #### CDP #### [facility] Lab [address] [place] [phone] Yeast Culture Developer: BRENDA Mirzaosinophils/100 WBC (Bld)1 %Normal0-5Norwalk Memorial HospitalComment on above:Performed By: #### CDP #### [facility] Lab [address] [place] [phone] Yeast Culture Developer: Emily George MDErythrocyte distribution width (RBC) [Ratio]18.4 % High12.1-15.2MJ.W. Ruby Memorial HospitalComment on above:Performed By: #### CDP #### [facility] Lab [address] [place] [address] Yeast Culture Developer: Emily George MDHematocrit (Bld) [Volume fraction]30.0 %Low 36.0-46.0Norwalk Memorial HospitalComhavenwyck hospital on above:Performed By: #### CDP #### [facility] Lab [address] [place] [address] Yeast Culture Developer: Emily George MDHemoglobin (Bld) [Mass/Vol]9.6 g/dLLow12.0-16.0 [facility] on above:Performed By: #### CDP #### [facility] Lab [address] [place], [place] [phone] Yeast Culture Developer: Emily George MDImmature granulocytes/100 WBC (Bld)2 %Normal0-5 [facility] on above:Performed By: #### CDP #### [facility] Lab [address] [place] [address] Yeast Culture Developer: Leelee Mirzamphocytes (Bld) [#/Vol]1.39 10*3/uLNormal 1.00-4.80[facility] on above:Performed By: #### CDP #### [facility] Lab [address] [place], [place] [phone] Yeast Culture Developer: Leelee Mirzamphocytes/100 WBC (Bld)23 %Wsphsi35-29BirqqPike Community Hospital on above:Performed By: #### CDP #### [facility] Lab [address] [place] [address] Yeast Culture Developer: ELISABET MirzaCH (RBC) [Entitic mass]27.0 drIkbgdp48.0-34.0 [facility] on above:Performed By: #### CDP #### [facility] [address] [place] [address] Yeast Culture Developer: ELISABET MirzaCHC (RBC) [Mass/Vol]32.0 g/aSHyvmvr57.0-37.0[facility]walk [facility] HospitalComment on above:Performed By: #### CDP #### [facility] [address] [place] [address] Yeast Culture Developer: ELISABET MirzaCV (RBC) [Entitic vol]84.3 pKZpudeu97.0-100.0 [facility] HospitalComment on above:Performed By: #### CDP #### [facility] [address] [place] [address] Yeast Culture Developer: ELISABET Mirzaonocytes (Bld) [#/Vol]0.37 10*3/uLNormal0.00-1.00 [facility] HospitalComment on above:Performed By: #### CDP #### [facility] [address] [place] [address] Yeast Culture Developer: ELISABET Mirzaonocytes/100 WBC (Bld)6 %Normal4-8[facility] Memorial HospitalComhavenwyck hospital on above:Performed By: #### CDP #### [facility] [address] [place] [address] Yeast Culture Developer: Emily George MDNeutrophil (Seg)68 %Dttbwy56-21GqfvcNorwalk Memorial HospitalComment on above:Performed By: #### CDP #### [facility] [address] [place] [address] Yeast Culture Developer: ANNMARIE Mirzalatelet mean volume (Bld) [Entitic vol]11.7 fL Normal6.0-12.0[facility]walk Memorial HospitalComment on above:Performed By: #### CDP #### [facility] [address] [place] [address] Yeast Culture Developer: Terrence Mirza (d) [#/Vol]186 10*3/qVHdacge558-072 [facility] HospitalComment on above:Performed By: #### CDP #### [facility] [address] [place], [place] [id number] Yeast Culture Developer: ELMO Mirza (d) [#/Vol]3.56 10*6/uLLow4.00-5.20[facility] HospitalComment on above:Performed By: #### CDP #### [facility] [address] [place], [place] [id number] Yeast Culture Developer: LLOYD Mirza (d) [#/Vol]6.1 10*3/uLNormal3.5-11.0[facility] HospitalComment on above:Performed By: #### CDP #### [facility] [address] [place], [place] [phone] Yeast Culture Developer: Kiara Mirza Panel Informationon 04-04-2025 No acute osseous injury. Soft tissue swelling of the left great toe on the right second toe without radiographic evidence of osteomyelitis. Postsurgical changes partially imaged on the left. MHPN RIS CONSOLIDATEDEXAM: XR TOE LEFT (MIN 2 VIEWS), XR [...] blastic bony lesions. There is normal mineralization. [facility] Daksha Frances MD - 04/04/2025 EXAM: XR TOE LEFT [...] changes partially imaged on the left. [facility] Search Million CultureSentara Virginia Beach General HospitalSpotsetterNo Panel InformationOrdered By: Daksha Hannah on 18-83-0673Uob Prescott Va Medical CenterSpotsetter Work Phone: sedimentation Rateon 13-98-0810ASK Photometric method (Bld) [Velocity]32Dominion HospitalInterpretation and review of laboratory resultsAbnormalRiverside Walter Reed Hospital Sedimentation Rate32 mm/HrPlateau Medical Center068 Jackson StreetComment on above: Performed By: #### BNP, SED, CRP ####[facility] [address] [facility] [place] [address] lab Director: LIONEL MirzaR TOE LEFT (MIN 2 VIEWS)on [id number] TOE LEFT (MIN 2 VIEWS)EXAM: XR TOE LEFT (MIN 2 VIEWS), XR [...] Signed by: Daksha Hannah MD 04/04/25 Final resultNormalNorwalk Memorial HospitalXR TOE RIGHT (MIN 2 VIEWS)on 04-04-2025 XR TOE RIGHT (MIN 2 VIEWS)EXAM: XR TOE LEFT (MIN 2 VIEWS), XR [...] Signed by: Daksha Hannah MD 04/04/25 Final resultNormalNorwalk Memorial HospitalXR Toes - left 2 Viewson 04-04-2025 Radiology Study observation (narrative)[facility] HospitalXR Toes - right 2 Viewson 65-80-2000Wgxteubaq Study observation (narrative)[facility] BRIAN DIGITAL SCREEN BILATERALon [id number] RBIAN DIGITAL SCREEN BILATERALHISTORY: Screening. TECHNIQUE: Bilateral digital screening mammogram with [...] be mailed to the patient. Performing Facility: [place] [address] Interpreted by: Micky Lauren Jr., MD Signed by: Micky Lauren Jr., MD 02/28/25 Final resultNormalMercy Health West Hospital Metabolic Profon 46-92-7414Ypueedt [Mass/Vol]3.8 g/dLNormal3.5-5.2[facility] on above:Performed By: #### LIPR, LDLDIR, GLYHGB #### [employer] [address] [place] [address] Yeast Culture Developer: Placido Pierce MD #### CP #### [facility] [address] [place], [place] [phone] Yeast Culture Developer: Manish Mirza Ecrt216 U/NNhmb78-603AitgmPike Community Hospital on above:Performed By: #### LIPR, LDLDIR, GLYHGB #### [employer] [address] [place] [address] Yeast Culture Developer: Placido Pierce MD #### CP #### [facility] [address] [place], [place] [phone] Yeast Culture Developer: RAMA Mirza [Catalytic activity/Vol]11 U/LNormal5-33[facility] on above:Performed By: #### LIPR, LDLDIR, GLYHGB #### [employer] [address] [place] [address] Yeast Culture Developer: Placido Pierce MD #### CP #### [facility] [address] [place] [address] Yeast Culture Developer: Myles Mirza gap [Moles/Vol]12 mmol/LNormal9-17[facility] on above:Performed By: #### LIPR, LDLDIR, GLYHGB #### [employer] [address] [place] [address] Yeast Culture Developer: Placido Pierce MD #### CP #### [facility] [address] [place], [place] [phone] Yeast Culture Developer: Emily George MDAST [Catalytic activity/Vol]14 U/LNormal<32[facility]walk Memorial HospitalComment on above:Performed By: #### LIPR, LDLDIR, GLYHGB #### [address] [phone] Yeast Culture Developer: Placido Pierce MD #### CP #### [facility] [address] [place], [place] 2278[address] Yeast Culture Developer: Emily George MDBilirubin [Mass/Vol]0.4 mg/dLNormal0.3-1.2MJ.W. Ruby Memorial HospitalComment on above:Performed By: #### LIPR, LDLDIR, GLYHGB #### [address] [phone] Yeast Culture Developer: Placiod Pierce MD #### CP #### [facility] [address] [place], [place] 6[address] Yeast Culture Developer: Emily George MDBUN/CRE Jaquk01Zqbyhq6-78Bhhpq [facility] Comment on above:Performed By: #### LIPR, LDLDIR, GLYHGB #### [address] [phone] Yeast Culture Developer: Placido Pierce MD #### CP #### [facility] [address] [place], [place] 538[address] Yeast Culture Developer: SHER Mirzaalcium [Mass/Vol]9.3 mg/dLNormal8.6-10.4Norwalk Memorial HospitalComment on above:Performed By: #### LIPR, LDLDIR, GLYHGB #### [address] [phone] Yeast Culture Developer: Placido Pierce MD #### CP #### [facility] [address] [place] [address] Yeast Culture Developer: SHER Mirzahloride [Moles/Vol]102 mmol/QCibtsj24-894ClcvyNorwalk Memorial HospitalComment on above:Performed By: #### LIPR, LDLDIR, GLYHGB #### [address] [phone] Yeast Culture Developer: Placido Pierce MD #### CP #### [facility] [address] [place], [place] [phone] Yeast Culture Developer: SHER MirzaO2 [Moles/Vol]25 mmol/SKlgojh45-34QpfbxNorwalk Memorial HospitalComment on above:Performed By: #### LIPR, LDLDIR, GLYHGB #### [address] [phone] Yeast Culture Developer: Placido Pierce MD #### CP #### [facility] [address] [place] [address] Yeast Culture Developer: SHER Mirzareatinine [Mass/Vol]1.1 mg/dLHigh0.5-0.9[facility] HospitalComhavenwyck hospital on above:Performed By: #### LIPR, LDLDIR, GLYHGB #### [address] [phone] Yeast Culture Developer: Placido Pierce MD #### CP #### [facility] [address] [place] [address] Yeast Culture Developer: Emily George MDGFR/1.73 sq M.predicted among non-blacks MDRD (S/P/Bld) [Vol rate/Area]63 mL/min/{1.73_m2}Normal>60[facility] Comment on above:Result Comment: These results are not intended for [...] or following therapy that affects renal tubular secretion.Performed By: #### LIPR, LDLDIR, GLYHGB #### [address] [phone] Yeast Culture Developer: Placido Pierce MD #### CP #### [facility] [address] [place], [place] [phone] Yeast Culture Developer: Emily George MDGlucose [Mass/Vol]125 mg/fZAvbv44-91AlntkJ.W. Ruby Memorial HospitalComment on above:Performed By: #### LIPR, LDLDIR, GLYHGB #### [address] 0101[address] Yeast Culture Developer: Placido Pierce MD #### CP #### [facility] [address] [place], [place] [phone] Yeast Culture Developer: Emily George MDPotassium [Moles/Vol]4.2 mmol/LNormal3.7-5.3MJ.W. Ruby Memorial HospitalComment on above:Performed By: #### LIPR, LDLDIR, GLYHGB #### [address] [phone] Yeast Culture Developer: Placido Pierce MD #### CP #### [facility] [address] [place], [place] 4657[address] Yeast Culture Developer: Emily George MDProtein [Mass/Vol]7.2 g/dLNormal6.4-8.3MJ.W. Ruby Memorial HospitalComment on above:Performed By: #### LIPR, LDLDIR, GLYHGB #### [address] [phone] Yeast Culture Developer: Placido Pierce MD #### CP #### [facility] [address] [place], [place] [phone] Yeast Culture Developer: MARIKA Mirzaodium [Moles/Vol]139 mmol/IKusjwe703-623UidnsNorwalk Memorial HospitalComment on above:Performed By: #### LIPR, LDLDIR, GLYHGB #### [facility] [address] [place], [place] [phone] Yeast Culture Developer: Placido Pierce MD #### CP #### [facility] [address] [place], [place] [phone] Yeast Culture Developer: Emily George MDUrea nitrogen [Mass/Vol]21 mg/dLHigh6-20[facility]walk Memorial HospitalComment on above:Performed By: #### LIPR, LDLDIR, GLYHGB #### [facility] [place], [place] [address] Yeast Culture Developer: Placido Pierce MD #### CP #### [facility] [address] [place], [place] 4808690 Yeast Culture Developer: SHER Mirzaomprehensive Metabolic Panelon 25-74-0517Ftyceuq [Mass/Vol]3.8 g/dL3.5 - 5.2 g/dLBon Secours Magruder Hospitaly HealthALP [Catalytic activity/Vol]115 U/LHigh35 - 104 U/LBon Secours Magruder Hospitaly HealthALT [Catalytic activity/Vol]11 U/L5 - 33 U/LBon Secours Mercy HealthAnion gap [Moles/Vol]12 mmol/L9 - 17 mmol/LBon Secours Magruder Hospitaly HealthAST [Catalytic activity/Vol]14 U/L NINF - 32 U/LBon Secours Magruder Hospitaly HealthBilirubin [Mass/Vol]0.4 mg/dL0.3 - 1.2 mg/dLBon Secours Mercy HealthCalcium [Mass/Vol]9.3 mg/dL8.6 - 10.4 mg/dLBon Secours Mercy HealthChloride [Moles/Vol]102 mmol/L98 - 107 mmol/LBon Secours Magruder Hospitaly HealthCO2 [Moles/Vol]25 mmol/L20 - 31 mmol/LBon [facility] Creatinine [Mass/Vol]1.1 mg/dLHigh0.5 - 0.9 mg/dLBon Green Cross HospitalEst, Glodieudonne Filt Rate63- PINFBon [facility] on above: These results are not intended [...] therapy that affects renal tubular secretion. Glucose [Mass/Vol]125 mg/vWGrdv45 - 99 mg/dLBon [facility] Interpretation and review of laboratory resultsAbnoRiverside Shore Memorial Hospital Potassium [Moles/Vol]4.2 mmol/L3.7 - 5.3 mmol/LBon Green Cross HospitalProtein [Mass/Vol]7.2 g/dL6.4 - 8.3 g/dLBon Green Cross HospitalSodium [Moles/Vol]139 mmol/L135 - 144 mmol/LBon Green Cross HospitalUrea nitrogen [Mass/Vol]21 mg/dL High6 - 20 mg/dLBon Green Cross HospitalUrea nitrogen/Creatinine [Mass ratio]19 mg/mg9 - 20Bon [facility] Surgical CenterHemoglobin A1Con 12-58-1659Levonxi glucose Estimated from glycated hemoglobin (Bld) [Mass/Vol]103 mg/dLBon [facility]ore Medical Centerment on above:The ADA and AACC recommend providing the estimated average glucose result to permit better patient understanding of their HBA1c result. HbA1c (Bld) [Mass fraction]5.2 %4.0 - 6.0 %[facility] Reed HospitalGlucose [Mass/Vol]103 mg/dLNoSt. Vincent Hospital on above:Result Comment: The ADA and AACC recommend providing the estimated average glucose result to permit better patient understanding of their HBA1c result.Performed By: #### LIPR, LDLDIR, GLYHGB #### [employer] [facility] [place], [place] [phone] Yeast Culture Developer: Placido Pierce MD #### CP #### [facility] [address] [place], [place] [phone] Yeast Culture Developer: Emily George MDHbA1c (Bld) [Mass fraction]5.2 %Normal4.0-6.0[facility] on above:Performed By: #### LIPR, LDLDIR, GLYHGB #### [facility] [employer] [address] [place] [phone] Yeast Culture Developer: Placido Pierce MD #### CP #### [facility] [address] [place], [place] [phone] Yeast Culture Developer: Emily George MDLDL Chol, Directon 10-46-0746IBR Chol, Catvig48 mg/dLNormal<100Norwalk Memorial HospitalComment on above:Performed By: #### LIPR, LDLDIR, GLYHGB #### [facility] [employer] [facility] [place], [place] [phone] Yeast Culture Developer: Placido Pierce MD #### CP #### [facility] [address] [place] [address] Yeast Culture Developer: Emily George MDLDL Cholesterol, Directon 29-57-2593Vabhtdxhjpg in LDL [Mass/Vol]94 mg/dLNINF - 100 mg/dLBon [facility] Cross HospitalBon Green Cross HospitalLipid Panelon 61-32-0949Futjpeyfmyp [Mass/Vol]179 mg/dL0 - 199 mg/dLBon [facility] Cross HospitalComment on above: Cholesterol Guidelines: <200 Desirable 200-240 Borderline >240 Undesirable Cholesterol in HDL [Mass/Vol]31 mg/dLLow40 - PINF mg/dLBon [facility] Comment on above: HDL Guidelines: <40 Undesirable 40-59 Borderline >59 Desirable Cholesterol in LDL [Mass/Vol]Can not be calculated0 - 100 mg/dLBon Green Cross HospitalComment on above: LDL Guidelines: <100 Desirable 100-129 Near to/above Desirable 130-159 Borderline >159 Undesirable Direct (measured) LDL and calculated LDL are not interchangeable tests. Cholesterol in VLDL [Mass/Vol]Can not be calculated1 - 30 mg/dLBon Green Cross HospitalCholesterol.total/Cholesterol in HDL [Mass ratio]5.8 {ratio}[facility] Memorial HospitalInterpretation and review of laboratory resultsAbnormalBon Green Cross HospitalTriglyceride [Mass/Vol]407 mg/dLHighNINF - 150 mg/dLBon Green Cross HospitalComment on above: Triglyceride Guidelines: <150 Desirable 150-199 Borderline 200-499 High >499 Very high Based on AHA Guidelines for fasting triglyceride, July 2012. [facility] Memorial HospitalLipid Profileon 10-99-4882Tqokkowifvm [Mass/Vol]179 mg/dLNormal0-199[facility] on above:Result Comment: Cholesterol Guidelines: <200 Desirable 200-240 Borderline >240 UndesirablePerformed By: #### LIPR, LDLDIR, GLYHGB #### [address] [address] Yeast Culture Developer: Placido Pierce MD #### CP #### [facility] [address] [place] [address] Yeast Culture Developer: SHER Mirzaholesterol in HDL [Mass/Vol]31 mg/dLLow>40[facility] on above:Result Comment: HDL Guidelines: <40 Undesirable 40-59 Borderline >59 DesirablePerformed By: #### LIPR, LDLDIR, GLYHGB #### [address] [phone] Yeast Culture Developer: Placido Pierce MD #### CP #### [facility] [address] [place] [address] Yeast Culture Developer: SHER Mirzaholesterol,LDLCan not be calculatedNormal0-100 [facility] on above:Result Comment: LDL Guidelines: <100 Desirable 100-129 Near to/above Desirable 130-159 Borderline >159 Undesirable Direct (measured) LDL and calculated LDL are not interchangeable tests.Performed By: #### LIPR, LDLDIR, GLYHGB #### [facility] [employer] [facility] [place] [address] Yeast Culture Developer: Placido Pierce MD #### CP #### [facility] [address] [place] [address] Yeast Culture Developer: SHER Mirzaholesterol,VLDLCan not be calculatedNormal1-30 [facility] on above:Performed By: #### LIPR, LDLDIR, GLYHGB #### [address] [address] Yeast Culture Developer: Placido Pierce MD #### CP #### [facility] [address] [place], [place] [phone] Yeast Culture Developer: Oliverio Mirzastsanjay.total/Cholesterol in HDL [Mass ratio] 5.8 {ratio}NormalPike Community Hospital on above:Performed By: #### LIPR, LDLDIR, GLYHGB #### [address] [address] Yeast Culture Developer: Placido Pierce MD #### CP #### [facility] [address] [place], [place] [phone] Yeast Culture Developer: Emily George MDTriglyceride [Mass/Vol]407 mg/dLHigh<150[facility] on above:Result Comment: Triglyceride Guidelines: <150 Desirable 150-199 Borderline 200-499 High >499 Very high Based on AHA Guidelines for fasting triglyceride, July 2012.Performed By: #### LIPR, LDLDIR, GLYHGB #### [facility] [address] [place] [address] Yeast Culture Developer: Placido Pierce MD #### CP #### [facility] [address] [place] [address] Yeast Culture Developer: Emily George MD THYROIDon [id number] THYROIDEXAM: US THYROID HISTORY: Thyroid nodule COMPARISON: Prior [...] by: Micky Lauren Jr., MD 09/07/24 Final resultNormalMerMatteawan State Hospital for the Criminally Insane Thyroid glandon 09-07-2024 TI-RADS 5, highly suspicious subcentimeter nodule in the right lobe remains stable. (Follow if greater than or equal to 0.5 cm annually until 5 years according to ACR TI-RADS recommendations). Continued follow-up annually is recommended through 2026. [facility] CONSOLIDATEDEXAM: US THYROID HISTORY: Thyroid nodule COMPARISON: Prior [...] 1.7 x 1.3 cm. Isthmus: 0.2 cm [facility] Micky Manzanares Jr., MD - 09/07/2024 EXAM: US THYROID [...] Continued follow-up annually is recommended through 2026. [employer] Thyroid glandOrdered By: iMcky Lauren on 09-07-2024 [facility] [employer] Work Phone: us Thyroid glandon [id number] Study observation (narrative)[facility] BrightkitMagnesiumon 06-15-7708Lulntvemc [Mass/Vol]2.2 mg/dL1.6 - 2.6 mg/dLBON LysandaNo Panel Informationon 14-28-1130XON Pikimal HEALTHProtein / creatinine ratio, urineon 23-22-4356Ihdjxkkuio (U) [Mass/Vol]132.0 mg/dL28.0 - 217.0 mg/dLBON Pikimal HEALTHProtein (U) [Mass/Vol]9 mg/dLBON Pikimal HEALTHComment on above:No normal range established.Urine Total Protein Creatinine Ratio0.07BON A[facility] WEST HOSPITALCitiVoxBON AUR[facility] WEST HOSPITALTheGrid HEALTHRenal Function Panelon 05-10-2024 Albumin [Mass/Vol]4.2 g/dL3.5 - 5.2 g/dLBON SECCitiVoxAnion gap [Moles/Vol]15 mmol/L9 - 17 mmol/LBON SECTheGrid HEALTHCalcium [Mass/Vol]9.2 mg/dL8.6 - 10.4 mg/dLBON SECTheGrid HEALTHChloride [Moles/Vol]101 mmol/L98 - 107 mmol/LBON SECTheGrid HEALTHCO2 [Moles/Vol]25 mmol/L20 - 31 mmol/LBON SECTheGrid [facility] HOSPITALCreatinine [Mass/Vol]1.3 mg/dLHigh0.5 - 0.9 mg/dLBON SECOURS [facility] DEFIANCE HOSPITALFRESS POMERENE HOSPITALEst, Glom Filt Ngil21Bla- PINFBON SECPROMEDICA FOSTORIA COMMUNITY HOSPITALComment on above: These results are not intended [...] therapy that affects renal tubular secretion. Glucose [Mass/Vol]141 mg/aKVmis48 - 99 mg/dLBON [facility] Selligy Interpretation and review of laboratory resultsAbnormalBON [facility] Phosphate [Mass/Vol]3.8 mg/dL2.6 - 4.5 mg/dLBON [facility] COMMUNITY HOSPITALCventPotassium [Moles/Vol]4.0 mmol/L3.7 - 5.3 mmol/LBON MERCY MEMORIAL HOSPITALSodium [Moles/Vol] 141 mmol/L135 - 144 mmol/LBON MERCY MEMORIAL HOSPITALUrea nitrogen [Mass/Vol]19 mg/dL6 - 20 mg/dLBON MERCY MEMORIAL HOSPITALUrea nitrogen/Creatinine [Mass ratio]15 mg/mg9 - 20BON [facility] WEST HOSPITALRideApart [facility] HOSPITALFRESS POMERENE HOSPITALUrinalysison 58-84-7257Avwdwvegf Ql (U) NegativeNEGATIVEBON [facility] HOSPITALClarity (U)ClearClearBON SECKADLEC REGIONAL MEDICAL CENTERFRESS POMERENE HOSPITALColor (U)YellowYellowBON SECPROMEDICA FOSTORIA COMMUNITY HOSPITALCommentBON [facility] HOSPITALGlucose Test strip (U) [Mass/Vol]NegativeNEGATIVE mg/dLBON [facility] SelligyHemoglobin Auto test strip Ql (U)NegativeNEGATIVEBON [facility] Interpretation and review of laboratory resultsAbnormalBON [facility] Ketones (U) [Mass/Vol]NegativeNEGATIVE mg/dLBON [facility] SelligyLeukocyte esterase Test strip Ql (U)NegativeNEGATIVEBON [facility] WEST HOSPITALRideApart [facility] HOSPITALFRESS POMERENE HOSPITALNitrite Ql (U) NegativeNEGATIVEBON SECKADLEC REGIONAL MEDICAL CENTERFRESS POMERENE HOSPITALpH (U)5.0 [pH]5.0 - 8.0BON [facility] HEALTHProtein (U) [Mass/Vol]TRACEAbnormalNEGATIVE mg/dLBON [facility] Specific gravity (U) [Rel density]1.0201.005 - 1.030B[facility] Urobilinogen Qn (U)Normal0.0 - 1.0 EU/dLBON [facility] MEM[facility] HOSPITALBON MERCY MEMORIAL HOSPITALLon 10-71-4260RGnlsohvx: [id number] Received: 02/16/24 Status: ARLEN Zuletapaola Num: [id number] Spec Type: Surgical Subm Dr: Frances Harris DPM, MS Tissues: A Soft Tissue/Surgical Margin-Other than Tumor,Mass,Lip or Becka (LT MID FOOT CH Procedures: HE/2, Gross/Micro L4 Age/ Patient Sex Location Account Attending Physician Celina Gaspar 43/F [place] [id number] Frances Harris DPM, MS SPEC NUM: [id number] RECD: 02/16/24 STATUS: ARLEN ALEXA NUM: [id number] MAYTE: 02/15/[address] [facility] [address]: Frances Harris DPM, MS ENTERED: 02/16/24 [facility] DR: Ursula,Darwin SPEC TYPE: Surgical DEPT: DEANA YEAGER ORDERED: [...] sections reveal firm, yellow spongy bone matrix. Speedometer Inspector sections are submitted following decalcification in A1?A2. Clinical history: varus deformity left ankle, charcot join left ankle and foot. CPT Codes 41723 Specimen: [id number] Received: 02/16/24 Status: ARLEN Julia Num: [id number] Spec Type: Surgical Subm Dr: Frances Harris DPM, MS Tissues: A Soft Tissue/Surgical Margin-Other than Tumor,Mass,Lip or Becka (LT MID FOOT CH Procedures: HE/Stefan, Gross/Micro L4 Patient: Celina Gaspar [id number] (Continued) Signed (signature on file) Juan José Yu MD 02/17/[address] [place] [address] Physician GroupLipid Panelon 06-15-2023 Cholesterol [Mass/Vol]174 mg/dLNINF - 200 mg/dLBON [facility] HOSPITALComment on above: Cholesterol Guidelines: <200 Desirable 200-240 Borderline >240 Undesirable Cholesterol in HDL [Mass/Vol]30 mg/dLLow40 - PINF mg/dLBON Lysanda Comment on above: HDL Guidelines: <40 Undesirable 40-59 Borderline >59 Desirable Cholesterol in LDL [Mass/Vol]77 mg/dL0 - 130 mg/dLBON Lysanda Comment on above: LDL Guidelines: <100 Desirable 100-129 Near to/above Desirable 130-159 Borderline >159 Undesirable Direct (measured) LDL and calculated LDL are not interchangeable tests. Cholesterol.total/Cholesterol in HDL [Mass ratio]5.8 {ratio}HighNINF - 5BON LysandaInterpretation and review of laboratory resultsAbnormalBON LysandaTriglyceride [Mass/Vol]334 mg/dLHighNINF - 150 mg/dLBON LysandaComment on above: Triglyceride Guidelines: <150 Desirable 150-199 Borderline 200-499 High >499 Very high Based on AHA Guidelines for fasting triglyceride, July 2012. BON [facility] HOSPITALCitiVoxBUN & Creatinineon 47-36-0957Xnbjbbssnw [Mass/Vol]1.08 mg/dLHigh0.50 - 0.90 mg/dLBON LysandaGFR/1.73 sq M.predicted MDRD (S/P/Bld) [Vol rate/Area]- PINFBON LysandaComment on above: These results are not intended [...] that affects renal tubular secretion. Urea nitrogen [Mass/Vol]21 mg/dLHigh6 - 20 mg/dLBON LysandaCBC with Auto Differentialon [id number] Eos #0.10BON Lysanda Absolute Lymph #1.70BON LysandaAbsolute Mccurtain #0.50BON LysandaBasophils (Bld) [#/Vol]0.00 10*3/uLBON [facility] MERCY HEALTHBasophils/100 WBC (Bld)1 %0 - 2 %BON [facility] HEALTHDifferential TypeYESBON SECPROMEDICA FOSTORIA COMMUNITY HOSPITALEosinophils/100 WBC (Bld)1 %0 - 5 %BON [facility] HOSPITALHematocrit (Bld) [Volume fraction]36.2 %36 - 46 %BON [facility] HOSPITALHemoglobin (Bld) [Mass/Vol]12.2 g/dL12.0 - 16.0 g/dLBON [facility] HOSPITALInterpretation and review of laboratory resultsAbnormalBON MERCY MEMORIAL HOSPITALLymphocytes/100 WBC (Bld)23 %15 - 40 %BON [facility] SHAWH (RBC) [Entitic mass]28.7 pg26 - 34 pgBON SECPROTESTANT HOSPITALHC (RBC) [Mass/Vol]33.7 g/dL31 - 37 g/dLBON SECPROTESTANT HOSPITALV (RBC) [Entitic vol]85.3 fL80 - 100 fLBON [facility] Monocytes/100 WBC (Bld)7 %4 - 8 %BON [facility]ICAL CENTER HEALTHPlatelet distribution width (Bld) [Ratio]18.1 %High12.1 - 15.2 %[facility] HEALTHPlatelets (Bld) [#/Vol]150 10*3/uLBON [facility] HEALTHRBC (Bld) [#/Vol]4.25 10*6/uL4.0 - 5.2 m/uLBON [facility] MEM[facility]IAL HOSPITALSegmented neutrophils/100 WBC (Bld)68 %47 - 75 %[facility] HEALTHSegs Absolute5.30BON SECOU[facility] CENTERVILLEWBC (Bld) [#/Vol]7.6 10*3/uLBON [facility] HEALTHChlorideon 73-54-3964Nevxfaev [Moles/Vol]99 mmol/L98 - 107 mmol/LBON [facility] Glucose, Randomon [id number] [Mass/Vol]107 mg/bVKhty82 - 99 mg/dLBON [facility] HOSPITALNo Panel Informationon [id number] and review of laboratory resultsAbnormalBON [facility] Potassiumon 57-22-7439Tsrusykcy [Moles/Vol]4.6 mmol/L3.7 - 5.3 mmol/LBON SECPROM[facility] FOSTOR[facility] COMM[facility] HOSPITALSodiumon 68-36-5554Mtrgyi [Moles/Vol]134 mmol/EWny130 - 144 mmol/L BON [facility] HOSPITALWet Prep, Genitalon 76-98-5933Oadckddqtritje and review of laboratory resultsAbnormalBON [facility] HEALTHMicroorganism or agent identified Nom (Unsp spec)FEW WBCAbnormalBON [facility] HEALTHMicroorganism or agent identified Nom (Unsp spec)MODERATE EPITHELIAL CELLSAbnormalBON [facility] HEALTHMicroorganism or agent identified Nom (Unsp spec)MODERATE BACTERIA AbnormalBON [facility] HEALTHMicroorganism or agent identified Nom (Unsp spec)NO TRICHOMONAS SEENBON [facility] HEALTHMicroorganism or agent identified Nom (Unsp spec)NO FUNGAL ELEMENTS SEENBON [facility] Microorganism or agent identified Nom (Unsp spec)NO CLUECELL SEENBON [facility] HEALTHSpecimen Description.VAGINABON SECCHI [facility] HEALTHCT FOOT LT WO CONon [id number] FOOT LT WO CONEXAMINATION: CT FOOT LT WO CON HISTORY: Charcot [...] Electronically authenticated by: EMILY ELY Date: 2023-02-04 20:14[facility]KLE [facility] 3+ VIEWS (STANDARD)on [id number] ANKLE LEFT 3+ VIEWS (STANDARD)EXAMINATION: XR ANKLE LEFT 3+ VIEWS (STANDARD) 01/06/2023 [...] RODRIGUEZ on ThuJan 06, 2023 6:11:26 PM EDTOhioHealth [facility]ide [facility] Comment on above:Order Comment: Injury/Trauma or Illness?:Injury/Trauma How long have you had these symptoms (acute/chronic)?:Acute Reason for exam?:left lateral ankle pain History of cancer?: Surgeries, chemotherapy, or radiation?: Type of Exam?:Initial Mechanism of injury?:rolled ankle 4 days agoMRI FOOT LEFT W WO CONTRASTon 06-25-2022 Combined with the accompanying radiographs, 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 PN RIS CONSOLIDATEDEXAM: MRI FOOT LEFT W WO CONTRAST 10 [...] osteomyelitis. No nonenhancing abscess pockets are identified. [facility] Mike Walden MD - 06/25/2022 EXAM: MRI FOOT LEFT [...] fragmentation of the navicular and cuneiform bones. [employer] Phone: radiology Study observation (narrative)[employer] Phone: MRI FOOT LEFT W WO CONTRASTOrdered By: Mike Villavicencio on [id number] [employer]bod Phone: XR FOOT LEFT (2 VIEWS)on [id number] is a linear metallic foreign body projecting between the second and third metatarsals. There is also a metallic foreign body within the lower leg. There is fragmentation of the navicular as well as of all 3 cuneiforms. The appearance is consistent with the patient's history of neuropathy. [facility] ASTRID CONSOLIDATEDEXAM: XR FOOT LEFT (2 VIEWS) HISTORY: M79.5. The patient is a 42-year-old female. Evaluate for foreign body. COMPARISON: None. [facility] Mike Yoder MD - 06/25/2022 EXAM: XR FOOT LEFT [...] consistent with the patient's history of neuropathy. 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 Clinical follow up recommended. Subcentimeter highly suspicious nodule in the right thyroid lobe 7 mm in greatest dimension. This meets criteria for annual follow up for 5 years. It does not meet criteria for FNA. [facility] CONSOLIDATEDEXAM: US HEAD NECK SOFT TISSUE THYROID HISTORY: [...] fat without shadowing, suggestive of a lipoma. PN Micky Sanchez Jr., MD - 05/27/2022 EXAM: US HEAD [...] It does not meet criteria for FNA. [employer] Phone: radiology Study observation (narrative)[employer] Phone: US HEAD NECK SOFT TISSUE THYROIDOrdered By: Micky Lauren on [id number] Tripbod Phone: Rejection Notificationon [id number] below [facility] Medical CenterComment on above:Result Comment: Unable to perform testing; no specimen received. To perform testing the specimen will need to be recollected. No specPerformed By: #### REJEC #### [facility] [address] [place] [address] [phone] TestCXURNPeaceHealth United General Medical CenterComment on above: Performed By: #### REJEC #### [facility] [address] [place] [id number] [phone] Cholesterol, Directon 50-77-9537Elidvzpjrfi in LDL [Mass/Vol]84 mg/dL<100BON SECOURS CENTERVILLEBON SECPROMEDICA FOSTORIA COMMUNITY HOSPITALCBC with Auto Differentialon 62-85-4476Zwtxotwg Eos #0.10BON SECOURS [facility]ITALY HEALTHAbsolute Lymph #1.40BON SECOURS [facility] HOSPITALY HEALTHAbsolute Mccurtain #0.30[facility] [place] Basophils (Bld) [#/Vol]0.00 10*3/uLBON SECOURS CENTERVILLEBasophils/100 WBC (Bld)1 %0 - 2 %BON SECOURS CENTERVILLEDifferential TypeYESBON SECOURS CENTERVILLEEosinophils/100 WBC (Bld)1 %0 - 5 %BON [facility] HOSPITALHematocrit (Bld) [Volume fraction]35.7 %Low36 - 46 %BON SECPROMEDICA FOSTORIA COMMUNITY HOSPITALHemoglobin (Bld) [Mass/Vol]12.0 g/dL12.0 - 16.0 g/dLBON SECPROMEDICA FOSTORIA COMMUNITY HOSPITALInterpretation and review of laboratory resultsAbnormalBON SECPROMEDICA FOSTORIA COMMUNITY HOSPITALLymphocytes/100 WBC (Bld)25 %15 - 40 %BON [facility] (RBC) [Entitic mass]28.0 pg26 - 34 pgBON SECPROTESTANT HOSPITALHC (RBC) [Mass/Vol]33.7 g/dL31 - 37 g/dLBON SECPROTESTANT HOSPITALV (RBC) [Entitic vol]83.3 fL80 - 100 fLBON SECPROMEDICA FOSTORIA COMMUNITY HOSPITALMonocytes/100 WBC (Bld)5 %4 - 8 %BON SECPROMEDICA FOSTORIA COMMUNITY HOSPITALPlatelet distribution width (Bld) [Ratio]16.4 %High12.1 - 15.2 %BON [facility]PROM[facility] Platelets (Bld) [#/Vol]168 10*3/uLBON SECOURS CENTERVILLERBC (Bld) [#/Vol]4.29 10*6/uL4.0 - 5.2 m/uLBON [facility] HEALTHSegmented neutrophils/100 WBC (Bld) 68 %47 - 75 %BON [facility]PAUL MEDICAL CENTERSegs Absolute3.90B[facility] WBC (Bld) [#/Vol]5.7 10*3/uLBON SECPROMEDICA FOSTORIA COMMUNITY HOSPITALBON [facility] Comprehensive Metabolic Panelon [id number] [Mass/Vol]4.2 g/dL3.5 - 5.2 g/dLBON MERCY MEMORIAL HOSPITALALP (Bld) [Catalytic activity/Vol]88 U/L35 - 104 U/L B[facility] CENTERALT [Catalytic activity/Vol]29 U/L5 - 33 U/LBON [facility]IAL HOSPITALAnion gap [Moles/Vol]11 mmol/L9 - 17 mmol/LBON [facility] AST [Catalytic activity/Vol]27 U/L<32BON [facility] HOSPITALBilirubin [Mass/Vol]0.65 mg/dL0.30 - 1.20 mg/dLBON [facility]OR[facility] HOSPITALCalcium [Mass/Vol] 9.1 mg/dL8.6 - 10.4 mg/dLBON [facility] MEMORIAL HOSPITALChloride [Moles/Vol]101 mmol/L 98 - 107 mmol/LBON [facility] HOSPITALCO2 [Moles/Vol]28 mmol/L20 - 31 mmol/LBON [facility] HOSPITALCreatinine [Mass/Vol]1.04 mg/dLHigh0.50 - 0.90 mg/dLBON [facility] HOSPITALFree PSA/Total PSA [Mass fraction]6.8 g/dL6.4 - 8.3 g/dLBON [facility] HOSPITALGFR >60>60 mL/minBON SECOURS DEPAUL MEDICAL CENTERGFR Non- Foyofhrb58 mL/minLow>60BON [facility] HOSPITALGFR/1.73 sq M.predicted MDRD (S/P/Bld) [Vol rate/Area][facility]ICAL CENTERComment on above:Average GFR for 40-49 years old: 99 mL/min/1.73sq m Chronic Kidney Disease: <60 mL/min/1.73sq m Kidney failure: <15 mL/min/1.73sq m eGFR calculated using average adult body mass. Additional eGFR calculator available at: http://www.Ryla.com/multiple_crcl_2012.htm Glucose [Mass/Vol]103 mg/iTVife57 - 99 mg/dLBON [facility] Interpretation and review of laboratory resultsAbLewisGale Hospital Pulaski Potassium [Moles/Vol]3.9 mmol/L3.7 - 5.3 mmol/LBON [facility] MEM[facility] HOSPITALSodium [Moles/Vol]140 mmol/L135 - 144 mmol/LBON [facility]IAL HOSPITALUrea nitrogen (BldV) [Mass/Vol]13 mg/dL6 - 20 mg/dLBON MERCY MEMORIAL HOSPITALUrea nitrogen/Creatinine (Bld) [Mass ratio]13BON [facility]ST HOSPITALRideApart [facility] DEFIANCE HOSPITALFRESS POMERENE HOSPITALHIV Screenon [id number] Ag/AbNon-ReactiveNONREACTIVESouthern [facility] on above:No laboratory evidence of HIV infection. If acute HIV infection is suspected, consider testing for HIV-1 RNA. [facility] HOSPITALCitiVoxLipid Panelon [id number] [Mass/Vol]184 mg/dL <200BON [facility] on above: Cholesterol Guidelines: <200 Desirable 200-240 Borderline >240 Undesirable Cholesterol in HDL [Mass/Vol]30 mg/dLLow>40ED[facility]OUR[facility] ROG[facility] MEMORIAL VETERANS HOSPITALRideApart [facility] on above: HDL Guidelines: <40 Undesirable 40-59 Borderline >59 Desirable Cholesterol.total/Cholesterol in HDL [Mass ratio]6.1 {ratio}High<5B[facility] SelligyInterpretation and review of laboratory resultsAbnormRiverside Regional Medical CenterLDL Cholesterol0 - 130 mg/dLBON [facility] on above:Calculation not valid for Triglyceride value greater than 400 mg/dL. Direct LDL reflexed LDL Guidelines: <100 Desirable 100-129 Near to/above Desirable 130-159 Borderline >159 Undesirable Direct (measured) LDL and calculated LDL are not interchangeable tests. Triglyceride [Mass/Vol]460 mg/dLHigh<150BON [facility] WEST HOSPITALPlacesterUNM Cancer Center on above: Triglyceride Guidelines: <150 Desirable 150-199 Borderline 200-499 High >499 Very high Based on AHA Guidelines for fasting triglyceride, July 2012. [facility]ERANS HOSPITALCitiVoxNo Panel Informationon [id number] [facility] with Reflexon [id number] Qn0.99 m[IU]/LBON [facility] Urinalysis with MicroscopicOrdered By: Lita Weeks on 08-01-2021-[facility] Work Phone: amorphous, UANOT REPORTEDNoneMercy Health Work Phone: bacteria, UARAREAbnormalNoneMercy Health Work Phone: bilirubin UrineNegativeNEGATIVEMercy Health Work Phone: casts UANOT REPORTED/LPFMercy Health Work Phone: color, UAYellowYellowMercy Health Work Phone: crystals, UANOT REPORTEDNone /HPFMercy Health Work Phone: epithelial Cells UA2 TO 5/HPFMercy Health Work Phone: Glucose, UrNegativeNEGATIVEMercy Health Work Phone: Interpretation and review of laboratory results AbnormalMercy Health Work Phone: Ketones Ql (U)NegativeNEGATIVEMercy Health Work Phone: leukocyte esterase Test strip Ql (U)NegativeNEGATIVE [facility] Work Phone: Mucus, UANOT REPORTEDNoneMercy Health Work Phone: Nitrite, UrineNegativeNEGATIVEMercy Health Work Phone: Other Observations UANOT REPORTEDNOT REQ.[facility] Work Phone: pH, UA6.0[facility] Work Phone: protein, UANegativeNEGATIVEMercy Health Work Phone: rBC, UANOT REPORTEDMercy Health Work Phone: renal Epithelial, UANOT REPORTED0 /HPFMercy Health Work Phone: Rpecific [place], UA1.020[facility] Work Phone: Trichomonas, UANOT REPORTEDNoneMercy Health Work Phone: Turbidity UAClearClearMercy Health Work Phone: Urinalysis CommentsMercy Health Work Phone: Urine HgbNegativeNEGATIVEMercy Health Work Phone: Urobilinogen, UrineNormalNormalMercy Health Work Phone: WBC, UANOT REPORTED0 /HPFMercy Health Work Phone: Yeast, UANOT REPORTEDNoneMercy Health Work Phone: [facility] Work Phone: Urinalysis with MicroscopicOrdered By: Lita Weeks on 07-11-2021-[facility] Work Phone: Umorphous, UANOT REPORTEDNoneMercy Health Work Phone: bacteria, UA3+AbnormalNoneMercy Health Work Phone: Vilirubin UrineNegativeNEGATIVEMercy Health Work Phone: Basts UANOT REPORTED/LPFMercy Health Work Phone: Dolor, UAYellowYellowMercy Health Work Phone: Orystals, UANOT REPORTEDNone /HPFMercy Health Work Phone: Dpithelial Cells UA2 TO 5/HPFMercy Health Work Phone: Glucose, UrNegativeNEGATIVEMercy Health Work Phone: Interpretation and review of laboratory results AbnormalMercy Health Work Phone: Ketones Ql (U)NegativeNEGATIVEMercy Health Work Phone: leukocyte esterase Test strip Ql (U)2+AbnormalNEGATIVE [facility] Work Phone: Mucus, UANOT REPORTEDNoneMercy Health Work Phone: Nitrite, UrinePositiveAbnormalNEGATIVEMercy Health Work Phone: Other Observations UANOT REPORTEDNOT REQ.[facility] Work Phone: pH, UA6.0[facility] Work Phone: Trotein, UANegativeNEGATIVEMercy Health Work Phone: FBC, UANOT REPORTEDMercy Health Work Phone: renal Epithelial, UANOT REPORTED0 /HPFMercy Health Work Phone: specific [place], UA1.025[facility] Work Phone: Trichomonas, UANOT REPORTEDNoneMercy Health Work Phone: Turbidity UAHazyAbnormalClearMercy Health Work Phone: Urinalysis CommentsMercy Health Work Phone: Urine HgbNegativeNEGATIVEMercy Health Work Phone: Urobilinogen, UrineNormalNormalMercy Health Work Phone: WBC, UA20 TO 500 /HPFMercy Health Work Phone: Yeast, UANOT REPORTEDNoneMercy Health Work Phone: [facility] Work Phone: albuminOrdered By: Gregory Forbes on [id number] [Mass/Vol]4.2 g/dL3.5 - 5.2 g/dLMercy Health Work Phone: bUN & CreatinineOrdered By: Gregory Forbes on 31-42-2376Rbvzcpqwhz [Mass/Vol]1.18 mg/dLHigh0.50 - 0.90 mg/dLMercy Health Fairfield HospitalSharesVault Phone: GFR >60>60 mL/minMercy Health Fairfield HospitalSharesVault Phone: GFR Non- Frmkhzxr84 mL/minLow>60Mer[facility] Health Fairfield HospitalSharesVault Phone: GFR/1.73 sq M.predicted MDRD (S/P/Bld) [Vol rate/Area] [facility] HospitalMovableInk Phone: comment on above:Average GFR for 40-49 years old: 99 mL/min/1.73sq m Chronic Kidney Disease: <60 mL/min/1.73sq m Kidney failure: <15 mL/min/1.73sq m eGFR calculated using average adult body mass. Additional eGFR calculator available at: http://www.Microfabrica/multiple_crcl_2012.htm GFR/1.73 sq M.predicted MDRD (S/P/Bld) [Vol rate/Area]NOT REPORTEDMercy Health Fairfield HospitalSharesVault Phone: Interpretation and review of laboratory results AbnormalMercy Health Fairfield HospitalSharesVault Phone: Urea nitrogen (BldV) [Mass/Vol]19 mg/dL6 - 20 mg/dL [facility] HospitalMovableInk Phone: calciumOrdered By: Gregory Forbes on 86-01-0255Mzlresk [Mass/Vol]9.2 mg/dL8.6 - 10.4 mg/dLMercy Health Fairfield HospitalSharesVault Phone: electrolyte PanelOrdered By: Gregory Forbes on 36-19-1757Rxbea gap [Moles/Vol]10 mmol/L9 - 17 mmol/LMercy poLight Phone: chloride [Moles/Vol]103 mmol/L98 - 107 mmol/LMercy poLight Phone: cO2 [Moles/Vol]25 mmol/L20 - 31 mmol/LMercy Health Work Phone: potassium [Moles/Vol]4.2 mmol/L3.7 - 5.3 mmol/LMercy Health Work Phone: sodium [Moles/Vol]138 mmol/L135 - 144 mmol/LMercy Health Work Phone: MagnesiumOrdered By: Gregory Forbes on 05-20-2021 Magnesium [Mass/Vol]2.2 mg/dL1.6 - 2.6 mg/dLMercy Health Work Phone: No Panel InformationOrdered By: Gregory Forbes on 57-02-1912[facility] Work Phone: phosphorusOrdered By: Gregory Forbes on 05-20-2021 Phosphate [Mass/Vol]3.7 mg/dL2.6 - 4.5 mg/dLMount Carmel Health System Health Work Phone: UrinalysisOrdered By: Gregory Forbes on 05-20-2021 Bilirubin UrineNegativeNEGATIVEMercy Health Work Phone: color, UAYELLOWYELLOWMercy Health Work Phone: Glucose, UrNegativeNEGATIVEMercy Health Work Phone: Interpretation and review of laboratory results AbnormalMer Health Work Phone: Ketones Ql (U)NegativeNEGATIVEMercy Health Work Phone: leukocyte esterase Test strip Ql (U)NegativeNEGATIVE [facility] Work Phone: Nitrite, UrineNegativeNEGATIVEMercy Health Work Phone: pH, UA5.0[facility] Work Phone: protein, UATRACEAbnormalNEGATIVEMercy Health Work Phone: specific [place], UA1.020[facility] Work Phone: Turbidity UACLEARCLEARMercy Health Work Phone: Urinalysis CommentsMer Health Work Phone: Urine HgbNegativeNEGATIVEMount [facility]el [facility] Work Phone: Urobilinogen, UrineNormalNormalMount Carmel Health System [facility] Work Phone: [facility] Work Phone: [phone] By: Pattie Hull on 01-22-2021 SARS-CoV-2 (COVID-19) RNA SHARMIN+probe Ql (Unsp spec)[facility] Search [employer] Work Phone: [phone]-TnA-2 (COVID-19) RNA SHARMIN+probe Ql (Unsp spec)Not detectedNot DetectedMount Carmel Health System Search [employer] Work Phone: comment on above: The specimen is NEGATIVE for SARS-CoV-2, the novel coronavirus associated with COVID-19. A negative result does not rule out COVID-19. Twin SARS-CoV-2 for use on the Twin 6800/8800 Systems is a real-time RT-PCR test intended [...] this assay. Fact sheet for Healthcare Providers: https://www.fda.gov/media/661917/download Fact sheet for Patients: https://www.fda.gov/media/583842/download METHODOLOGY: RT-PCR Source.THROATMount Carmel Health System Search [employer] Work Phone: [phone]-51, PCRon [id number]-CoV-2, RapidNot DetectedNot DetectedMerSharesVault Phone: comment on above: Rapid NAAT: The specimen is [...] management decisions. Fact sheet for Healthcare Providers: https://www.fda.gov/media/586495/download Fact sheet for Patients: https://www.[employer].gov/media/878509/download Methodology: Isothermal Nucleic Acid Amplification Source.[employer] HealthSharesVault Phone: Otheron [phone]-CoV-2Mohiohealth [facility] poLight Phone: cBC Auto Differentialon [id number] (Bld) [#/Vol]0.10 10*3/[facility], KYBasophils/100 WBC (Bld)1 %0 - 2 %[facility], KYDifferential TypeYESMCleveland Clinic Mentor Hospital, KYEosinophils (Bld) [#/Vol] 0.10 10*3/[facility], KYEosinophils/100 WBC (Bld)1 %0 - 5 %[facility], KYErythrocyte distribution width (RBC) [Ratio]16.3 %High12.1 - 15.2 %[facility], KYHematocrit (Bld) [Volume fraction]36.5 %36 - 46 %[facility], KYHemoglobin (Bld) [Mass/Vol]12.5 g/dL12 - 16 g/dLWestern Reserve Hospital, [place] Interpretation and review of laboratory resultsAbnormalMercy Health- [place], [place] Lymphocytes (Bld) [#/Vol]1.90 10*3/[facility]- [place], KYLymphocytes/100 WBC (Bld)25 %15 - 40 %[facility]- [place], KYMCH (RBC) [Entitic mass]28.8 pg26 - 34 pg [facility]- [place], KYMCHC (RBC) [Mass/Vol]34.3 g/dL31 - 37 g/dLKn[facility]- [place], TIFFMCV (RBC) [Entitic vol]84.0 fL80 - 100 fLKnox Community Hospital- [place], KYMonocytes (Bld) [#/Vol]0.40 10*3/[facility]- [place], KYMonocytes/100 WBC (Bld)5 %4 - 8 %[facility]- [place], TIFFPlatelet mean volume (Bld) [Entitic vol]NOT REPORTED6 - 12 fLKnox Community Hospital- [place], KYPlatelets (Bld) [#/Vol]167 10*3/[facility]- [place], KYPlatelets (Bld) [#/Vol]NOT REPORTEDKn[facility]- [place], KYRBC (Bld) [#/Vol]4.35 10*6/uL4 - 5.2 m/[facility]- [place], KYRBC morphology finding Nom (Bld)NOT REPORTEDMercy Hospital [place], TIFFSegmented neutrophils/100 WBC (Bld)68 %47 - 75 %[facility], TIFFSegs Absolute5.40[facility]- [place], KYWBC (Bld) [#/Vol]7.8 10*3/[facility]- [place], KYWBC (Bld) [#/Vol]NOT REPORTEDper 100 WBCKnox Community Hospital- [place], KYWBC MorphologyNOT REPORTEDKn[facility]- [place], KYComprehensive Metabolic Panel w/ Reflex to MGon [id number] [Mass/Vol]4.4 g/dL3.5 - 5.2 g/dLKn[facility]- [place], KYAlbumin/Globulin [Mass ratio]NOT REPORTEDKn[facility]- [place], KYALP [Catalytic activity/Vol]117 U/LHigh35 - 104 U/LMOhio [facility]- [place], KYALT [Catalytic activity/Vol]41 U/LHigh5 - 33 U/LMohiohealth o'bleness hospital Health- [place], KYAnion gap [Moles/Vol]10 mmol/L9 - 17 mmol/LMohiohealth o'bleness hospital Health- [place], KYAST [Catalytic activity/Vol]39 U/LHigh<32[facility]- [place], KYBilirubin Ql (U)0.52 mg/dL0.3 - 1.2 mg/dLKn[facility]- [place], KYBun/Cre Dmtiv23[facility]- [place], KYCalcium [Mass/Vol]9.0 mg/dL8.6 - 10.4 mg/dLMercy Hospital [place], KYChloride [Moles/Vol]101 mmol/L98 - 107 mmol/LMOhio Valley Surgical Hospital- [place], KYCO2 [Moles/Vol]26 mmol/L20 - 31 mmol/L [facility]- [place], KYCreatinine [Mass/Vol]1.32 mg/dLHigh0.5 - 0.9 mg/dLKn[facility]- [place], KYGFR Bnwvvwjw58 mL/minLow>60[facility]- [place], KYGFR Non- Acqwhajt99 mL/minLow>60[facility]- [place], KYGFR/1.73 sq M predicted among non-blacks MDRD (S/P/Bld) [Vol rate/Area][facility], KYComment on above: Average GFR for 40-49 years old: 99 mL/min/1.73sq m Chronic Kidney Disease: <60 mL/min/1.73sq m Kidney failure: <15 mL/min/1.73sq m eGFR calculated using average adult body mass. Additional eGFR calculator available at: http://www.Ryla.MogiMe/multiple_crcl_2012.htm GFR/1.73 sq M predicted among non-blacks MDRD (S/P/Bld) [Vol rate/Area]NOT REPORTEDWestern [facility], KYGlucose [Mass/Vol]173 mg/mOMlef53 - 99 mg/dLWestern Reserve Hospital, KYInterpretation and review of laboratory resultsAbnormalMercy Hospital [place], KYPotassium [Moles/Vol]3.9 mmol/L3.7 - 5.3 mmol/LMOhio [facility] Surgical [facility]- [place], KYProtein [Mass/Vol]7.3 g/dL6.4 - 8.3 g/dLMercy Health- [place], KYSodium [Moles/Vol] 137 mmol/L135 - 144 mmol/LMercy Health- [place], KYUrea nitrogen [Mass/Vol]15 mg/dL6 - 20 mg/dLMercy Health- [place], KYOtheron [id number] granulocytes (Bld) [#/Vol]NOT REPORTEDMercy Health- [place], KYSedimentation Rateon [id number] Rate15 mm0 - 20 mmMercy Health- [place], KYUrinalysis, reflex to microscopicon 09-16-2020 Bilirubin UrineNegativeNEGATIVEMercy Health- [place], KYColor, UAYELLOWYELLOWMercy Health- [place], KYGlucose, UrNegativeNEGATIVEMercy Health- [place], KYInterpretation and review of laboratory resultsAbnormalMercy Health- [place], KYKetones Ql (U)Negative NEGATIVEMercy Health- [place], KYLeukocyte esterase Test strip Ql (U)NegativeNEGATIVE [facility]- [place], KYNitrite, UrineNegativeNEGATIVEMercy Health- [place], KYpH, UA5.0 [facility]- [place], KYProtein (U) [Mass/Vol]TRACEAbnormalNEGATIVEMercy Health- [place], KYSpecific [place], UA1.025[facility]- [place], KYTurbidity UACLEARCLEARMercy Health- [place], KYUrinalysis CommentsMercy Health- [place], KYUrine HgbNegativeNEGATIVE [facility]- [place], KYUrobilinogen, UrineNormalNormalMercy Health- [place], KYC- Reactive Proteinon [id number] [Mass/Vol]6 mg/LHigh0 - 5 mg/LMercy Health- [place], KYInterpretation and review of laboratory resultsAbnormalMercy Health- [place], [place] CBC With Auto Differentialon [id number] (Bld) [#/Vol]0.00 10*3/uLMercy Health- [place], KYBasophils/100 WBC (Bld)1 %0 - 2 %[facility]- [place], KYDifferential TypeYESMercy Health- [place], KYEosinophils (Bld) [#/Vol]0.10 10*3/uLMercy Health- [place], KYEosinophils/100 WBC (Bld)1 %0 - 5 %[place], KYErythrocyte distribution width (RBC) [Ratio]16.2 %High12.1 - 15.2 %[place], [place] Hematocrit (Bld) [Volume fraction]35.4 %Low36 - 46 %[place], [place] Hemoglobin (Bld) [Mass/Vol]12.2 g/dL12 - 16 g/dLFremont, [place] Interpretation and review of laboratory resultsAbnormalF[place], [place] Lymphocytes (Bld) [#/Vol]1.60 10*3/[facility], TNLymphocytes/100 WBC (Bld)28 %15 - 40 %[place], KYMCH (RBC) [Entitic mass]29.1 pg26 - 34 pg [place], KYMCHC (RBC) [Mass/Vol]34.5 g/dL31 - 37 g/dLFremont, KYMCV (RBC) [Entitic vol]84.2 fL80 - 100 [facility], TIFFMonocytes (Bld) [#/Vol]0.40 10*3/[facility], TIFFMonocytes/100 WBC (Bld)6 %4 - 8 %[facility] TNPlatelet mean volume (Bld) [Entitic vol]NOT REPORTED6 - 12 fLWestern Reserve Hospital, KYPlatelets (Bld) [#/Vol]160 10*3/[facility], KYPlatelets (Bld) [#/Vol]NOT REPORTEDWestern [facility], TNRBC (Bld) [#/Vol]4.20 10*6/uL4 - 5.2 m/[facility], TNRBC morphology finding Nom (Bld)NOT REPORTEDFremont, KYSegmented neutrophils/100 WBC (Bld)64 %47 - 75 %[facility], TNSegs Absolute3.80[facility], KYWBC (Bld) [#/Vol]5.8 10*3/[facility], TNWBC (Bld) [#/Vol]NOT REPORTEDper 100 WBCKnox Community Hospital- [place], KYWBC MorphologyNOT REPORTEDKnox Community Hospital- [place], KYOtheron 80-69-8539Ikinoaqw granulocytes (Bld) [#/Vol]NOT REPORTED0 %[facility]- [place], KYSedimentation Rate on 39-46-2931Beh Rate10 mm0 - 20 mmMount [facility]- [place], KYC-Reactive Proteinon 54-32-9640IGY [Mass/Vol]2 mg/L0 - 5 mg/LMOhio Valley Surgical Hospital- [place], KYCBC With Auto Differentialon 05-56-5564Jojcizmcp (Bld) [#/Vol]0.10 10*3/uLKnox Community Hospital- [place], [place] Basophils/100 WBC (Bld)1 %0 - 2 %[facility]- [place], KYDifferential TypeYESMOhio Valley Surgical Hospital- [place], KYEosinophils (Bld) [#/Vol]0.10 10*3/[facility]- [place], [place] Eosinophils/100 WBC (Bld)1 %0 - 5 %[facility]- [place], KYErythrocyte distribution width (RBC) [Ratio]16.8 %High12.1 - 15.2 %[facility]- [place], KYHematocrit (Bld) [Volume fraction]40.0 %36 - 46 %[facility]- [place], KYHemoglobin (Bld) [Mass/Vol] 13.5 g/dL12 - 16 g/dLKnox Community Hospital- [place], KYInterpretation and review of laboratory resultsAbnormalKnox Community Hospital- [place], KYLymphocytes (Bld) [#/Vol]1.70 10*3/uLKnox Community Hospital- [place], KYLymphocytes/100 WBC (Bld)17 %15 - 40 %[facility]- [place], KYMCH (RBC) [Entitic mass]29.1 pg26 - 34 pgKnox Community Hospital- [place], KYMCHC (RBC) [Mass/Vol] 33.8 g/dL31 - 37 g/dLKnox Community Hospital- [place], KYMCV (RBC) [Entitic vol]86.0 fL80 - 100 fLKnox Community Hospital- [place], KYMonocytes (Bld) [#/Vol]0.50 10*3/uLMercy Health- [place], [place] Monocytes/100 WBC (Bld)5 %4 - 8 %[facility]- [place], KYPlatelet mean volume (Bld) [Entitic vol]NOT REPORTED6 - 12 fLMer Health- [place], KYPlatelets (Bld) [#/Vol]NOT REPORTEDMer Health- [place], KYPlatelets (Bld) [#/Vol]208 10*3/uLMount Carmel Health System [facility]- [place], KYRBC (Bld) [#/Vol]4.65 10*6/uL4 - 5.2 m/uLMercy Health Fairfield Hospitalcy Health- [place], KYRBC morphology finding Nom (Bld)NOT REPORTEDMount [facility]el [facility]- [place], KYSegmented neutrophils/100 WBC (Bld)76 %High47 - 75 %[facility]- [place], KYSegs Absolute7.70HighMer Health- [place], TIFFWBC (Bld) [#/Vol]NOT REPORTEDper 100 WBCMount Carmel Health System [facility]- [place], KYWBC (Bld) [#/Vol] 10.0 10*3/uLMount Carmel Health System [facility]- [place], KYWBC MorphologyNOT REPORTEDMount [facility]- [place], [place] Otheron 47-07-7253Grdrihsa granulocytes (Bld) [#/Vol]NOT REPORTED0 %[facility]- [place], KYSedimentation Rateon 23-78-7982Dur Rate6 mm0 - 20 mmMount [facility]el [facility]- [place], KYProtein / creatinine ratio, urineon 72-40-3143Lyvwwdxxdr, Ur101.2 mg/dL28 - 217 mg/dLMount Carmel Health [facility]- [place], KYProtein (U) [Mass/Vol]8 mg/dLMount Carmel [facility]- [place], [place] Comment on above:No normal range established.Urine Total Protein Creatinine Ratio0.08[facility] Hospitalcy [facility]- [place], KYUrinalysison 79-08-5187Hclfzbcew UrineNegative NEGATIVEMount Carmel [facility]- [place], KYColor, UAYELLOWYELLOWMer Health- [place], KYGlucose, Ur 100 mg/dLAbnormalNEGATIVEMercy Health Fairfield Hospitalcy [facility]- [place], KYInterpretation and review of laboratory resultsAbnormalMer Health- [place], KYKetones Ql (U)NegativeNEGATIVE [facility]- [place], KYLeukocyte esterase Test strip Ql (U)NegativeNEGATIVEMercy Health- [place], KYNitrite, UrineNegativeNEGATIVEMercy Health- [place], KYpH, UA6.0[facility]- [place], KYProtein (U) [Mass/Vol]NegativeNEGATIVEMercy Health- [place], KYSpecific [place], UA1.020[facility]- [place], KYTurbidity UACLEARCLEARMer Health- [place], [place] Urinalysis CommentsMer Health- [place], KYUrine HgbNegativeNEGATIVEMount [facility]- [place], KYUrobilinogen, UrineNormalNormalMount [facility]el [facility]- [place], KYComprehensive Metabolic Panelon 42-03-5209Jbrotoa [Mass/Vol]4.4 g/dL3.5 - 5.2 g/dLMount Carmel Health [facility]- [place], [place] Albumin/Globulin [Mass ratio]NOT REPORTEDMount [facility]el [facility]- [place], KYALP [Catalytic activity/Vol]87 U/L35 - 104 U/LMst. [facility] [facility]y [facility]- [place], KYALT [Catalytic activity/Vol] 21 U/L5 - 33 U/LMst. [facility]ary[facility] [facility]- [place], KYAnion gap [Moles/Vol]10 mmol/L9 - 17 mmol/L [facility]- [place], KYAST [Catalytic activity/Vol]22 U/L<32[facility]- [place], [place] Bilirubin Ql (U)0.32 mg/dL0.3 - 1.2 mg/dLMount Carmel [facility]- [place], KYBun/Cre Ratio18 [facility]- [place], KYCalcium [Mass/Vol]10.1 mg/dL8.6 - 10.4 mg/dLMount [facility]el [facility]- [place], KYChloride [Moles/Vol]104 mmol/L98 - 107 mmol/LMohiohealth [facility]- [place], KYCO2 [Moles/Vol]26 mmol/L20 - 31 mmol/LMst. [facility]ary[facility] [facility]y [facility]- [place], KYCreatinine [Mass/Vol]1.37 mg/dLHigh0.5 - 0.9 mg/dLMount [facility]el [facility]- [place], KYGFR Gklvsdmq83 mL/minLow>60 [facility]- [place], KYGFR Non- Hbehmjjp33 mL/minLow>60[facility]- [place], [place] GFR/1.73 sq M predicted among non-blacks MDRD (S/P/Bld) [Vol rate/Area]NOT REPORTEDMount Carmel Health [facility]- [place], KYGFR/1.73 sq M predicted among non-blacks MDRD (S/P/Bld) [Vol rate/Area][facility], TIFFComment on above:Average GFR for 40-49 years old: 99 mL/min/1.73sq m Chronic Kidney Disease: <60 mL/min/1.73sq m Kidney failure: <15 mL/min/1.73sq m eGFR calculated using average adult body mass. Additional eGFR calculator available at: http://www.[employer]/multiple_crcl_2011.htm Glucose [Mass/Vol]160 mg/zTAhzr78 - 99 mg/dLWestern [facility] Hospital, TNInterpretation and review of laboratory resultsAbnormalWestern Reserve Hospital, TNPotassium [Moles/Vol]4.6 mmol/L3.7 - 5.3 mmol/LMCleveland Clinic Mentor Hospital, KYProtein [Mass/Vol]7.4 g/dL6.4 - 8.3 g/dLWestern [facility], TNSodium [Moles/Vol]140 mmol/L135 - 144 mmol/[facility], KYUrea nitrogen [Mass/Vol]24 mg/dLHigh6 - 20 mg/dLWestern [facility], TNHemoglobin A1Con 41-85-5959Smfdpsh [Mass/Vol]123 mg/dLWestern Reserve Hospital, TNComment on above:The ADA and AACC recommend providing the estimated average glucose result to permit better patient understanding of their HBA1c result. HbA1c (Bld) [Mass fraction]5.9 %4 - 6 %[place], KYLDL Cholesterol, Directon 09-00-0795Yejauauwsrw in LDL [Mass/Vol]58 mg/dL<100[place], [place] Lipid Panelon 24-06-5296Ulfjctducqp [Mass/Vol]194 mg/dL<200[place], [place] Comment on above: Cholesterol Guidelines: <200 Desirable 200-240 Borderline >240 Undesirable Cholesterol in HDL [Mass/Vol]27 mg/dLLow>40[facility] TNComment on above: HDL Guidelines: <40 Undesirable 40-59 Borderline >59 Desirable Cholesterol in LDL [Mass/Vol]0 - 130 mg/dLWestern [facility] Hospital, TNComment on above: Calculation not valid for Triglyceride value greater than 400 mg/dL. Direct LDL reflexed LDL Guidelines: <100 Desirable 100-129 Near to/above Desirable 130-159 Borderline >159 Undesirable Direct (measured) LDL and calculated LDL are not interchangeable tests. Cholesterol in VLDL [Mass/Vol]NOT REPORTED1 - 30 mg/dLWestern [facility] Hospital, [place] Cholesterol.total/Cholesterol in HDL [Mass ratio]7.2 {ratio}High<5[facility], TNInterpretation and review of laboratory resultsAbnormThe Jewish Hospital, TNTriglyceride [Mass/Vol]1112 mg/dLHigh<150[facility], KYComment on above: Triglyceride Guidelines: <150 Desirable 150-199 Borderline 200-499 High >499 Very high Based on AHA Guidelines for fasting triglyceride, July 2012. Patient Fasting?on 24-50-5367Ryydeno Fasting?YESWestern [facility], TNVitamin D 25 Hydroxyon 32-07-9104Lpe D, 25-Qjahpyp65.2 ng/mL30 - 100 ng/mLWestern [facility] Hospital, TNComment on above: Reference Range: Vitamin D status Range Deficiency <20 ng/mL Mild Deficiency 20-30 ng/mL Sufficiency 30-100 ng/mL Toxicity >100 ng/mL C-Reactive Proteinon 08-52-1969PEE [Mass/Vol]6.2 mg/LHigh0 - 5 mg/LMCleveland Clinic Mentor Hospital, TNInterpretation and review of laboratory resultsAbnoSouth [place], KYHemoglobin X4BHryeout By: Janel Allen on 40-48-3099Bvdjcmx [Mass/Vol] 108 mg/dLMercy Health Fairfield HospitalSharesVault Phone: comment on above:The ADA and AACC recommend providing the estimated average glucose result to permit better patient understanding of their HBA1c result. HbA1c (Bld) [Mass fraction]5.4 %4.8 - 5.9 %[facility] HospitalMovableInk Phone: Homocysteine, SerumOrdered By: Janel Allen on 50-30-4211Sjgnhlvxyrnf1 umol/L<15.0Mer[facility] Fair[facility] HospitalSharesVault Phone: TSH without ReflexOrdered By: Janel Allen on 02-20-9390CKM Qn1.03 m[IU]/LMercy Search [employer] Work Phone: Vitamin B12 & FolateOrdered By: Janel Allen on 95-48-7133Zveplielb (Vitamin B12) [Mass/Vol]292 pg/mL232 - 1245 pg/mLeMeter Work Phone: Folate13.8 ng/mL>4.8Mer[facility] Health Fairfield HospitalCvent Work Phone: XR CERVICAL SPINE (4-5 VIEWS)on 57-57-9492Cmzu degenerative changes cervical spine not unusual for age. Refer to the [facility] 02/03/2019 with some of the findings discussed above. [facility] HospitalHENRIAM: XR CERVICAL SPINE (4-5 VIEWS) HISTORY: Reason for exam:->history MRSA discitis of thoracicregion. New tingling and numbness of fingers COMPARISON: MRI cervical spine [facility] 02/03/2019, cervical spine series 04/03/2010. The MRI 02/03/2019 demonstrated multilevel disc-osteophyte complexes most prominently at C6-C7. Central disc protrusion at C6-C7 with disc- osteophyte complex caused mild canal stenosis with possible myelomalacia or cord edema at C6-C7. TECHNIQUE: Cervical spine series 6 views, 7 images. FINDINGS: Mild degenerative change at C5-C6 and C6-C7 unchanged. No fracture, lytic or blastic lesion. No bony foraminal narrowing. The odontoid is normal. Swimmer's lateral viewshows no additional abnormality.[facility] HospitalDannielle Mhpn Incoming Radiant Results From [facility] - 07/29/2019 10:05 AM EDT EXAM: XR CERVICAL SPINE (4-5 VIEWS) HISTORY: Reason for exam:->history MRSA discitis of thoracic region. New tingling and numbness of fingers COMPARISON: MRI cervical spine [facility] 02/03/2019, cervical spine series 04/03/2010. The [...] not unusual for age. Refer to the [facility] 02/03/2019 with some of the findings discussed above. [facility], TNC-Reactive ProteinOrdered By: Azalea Knight on 07-28-2019 CRP [Mass/Vol]6.4 mg/LHigh0 - 5 mg/LMOhio Valley Surgical Hospital- [place], TNInterpretation and review of laboratory resultsAbnormalWestern Reserve Hospital, TNCBC With Auto DifferentialOrdered By: Azalea Knight on 65-83-6581Rszrvkai Eos #0.10[facility]- [place], TNAbsolute Immature GranulocyteNOT REPORTEDWestern Reserve Hospital, [place] Absolute Lymph #2.10[facility]- [place], TNAbsolute Mccurtain #0.50[facility], [place] Basophils (Bld) [#/Vol]0.00 10*3/uLKnox Community Hospital- [place], KYBasophils/100 WBC (Bld)1 %0 - 2 %[facility]- [place], TNDifferential TypeYESMOhio Valley Surgical Hospital- [place], [place] Eosinophils/100 WBC (Bld)1 %0 - 5 %[facility]- [place], TNErythrocyte distribution width (RBC) [Ratio]14.5 %12.1 - 15.2 %[facility]- [place], TNHematocrit (Bld) [Volume fraction]38.1 %36 - 46 %[facility]- [place], TNHemoglobin (Bld) [Mass/Vol] 12.9 g/dL12 - 16 g/dLWestern Reserve Hospital, TNImmature GranulocytesNOT REPORTED0 % [facility]- [place], TNLymphocytes/100 WBC (Bld)34 %15 - 40 %[facility]- [place], [place] MCH (RBC) [Entitic mass]29.5 pg26 - 34 pgKnox Community Hospital- [place], KYMCHC (RBC) [Mass/Vol]33.9 g/dL31 - 37 g/dLKnox Community Hospital- [place], KYMCV (RBC) [Entitic vol]87.1 fL80 - 100 fLMercy Health- [place], KYMonocytes/100 WBC (Bld)8 %4 - 8 %[facility]- [place], KYMPVNOT REPORTED6 - 12 fLKnox Community Hospital- [place], KYNRBC AutomatedNOT REPORTEDper 100 WBCKnox Community Hospital- [place], KYPlatelet EstimateNOT REPORTEDKn[facility]- [place], [place] Platelets (Bld) [#/Vol]222 10*3/uLKn[facility] Hospital- [place], KYRBC (Bld) [#/Vol]4.38 10*6/uL4 - 5.2 m/uLKn[facility] Hospital- [place], KYRBC morphology finding Nom (Bld)NOT REPORTEDKn[facility]- [place], TIFFSegmented neutrophils/100 WBC (Bld)56 %47 - 75 % [facility]- [place], TIFFSegs Absolute3.50[facility]- [place], KYWBC (Bld) [#/Vol]6.2 10*3/uLKn[facility] Hospital- [place], KYWBC MorphologyNOT REPORTEDKn[facility]- [place], [place] Sedimentation RateOrdered By: Azalea Knight on 11-60-5579Uao Rate19 mm0 - 30 mmKnox [facility] Hospital- [place], TNC-Reactive Proteinon 54-54-3625FUF [Mass/Vol]7.3 mg/LHigh0 - 5 mg/LMOhio Valley Surgical Hospital- [place], TNInterpretation and review of laboratory results AbnormalKnox Community Hospital- [place], TNAlbuminon 29-88-0074Pmtlljh [Mass/Vol]4.3 g/dL3.5 - 5.2 g/dLKn[facility] Hospital- [place], TNBUN & Creatinineon 60-13-1643Oywxpfgpsg [Mass/Vol] 1.27 mg/dLHigh0.5 - 0.9 mg/dLKn[facility]- [place], TNGFR Pyqpqbyu21 mL/min Low>60[facility]- [place], KYGFR Non- Zhqrixqw79 mL/minLow>60[facility]- [place], KYGFR/1.73 sq M predicted among non-blacks MDRD (S/P/Bld) [Vol rate/Area]NOT REPORTEDKn[facility] Hospital- [place], KYGFR/1.73 sq M predicted among non-blacks MDRD (S/P/Bld) [Vol rate/Area][facility], TNComment on above:Average GFR for 40-49 years old: 99 mL/min/1.73sq m Chronic Kidney Disease: <60 mL/min/1.73sq m Kidney failure: <15 mL/min/1.73sq m eGFR calculated using average adult body mass. Additional eGFR calculator available at: http://www.[employer]/multiple_crcl_2012.htm Interpretation and review of laboratory resultsAbnormalMer Health- [place], KYUrea nitrogen [Mass/Vol]18 mg/dL6 - 20 mg/dLMount [facility]el [facility]- [place], KYCalciumon 06-17-2019 Calcium [Mass/Vol]10.4 mg/dL8.6 - 10.4 mg/dLMount Carmel [facility]- [place], KYElectrolyte Panelon 03-78-1988Jigfu gap [Moles/Vol]13 mmol/L9 - 17 mmol/LMst. [facility] [facility]- [place], KYChloride [Moles/Vol]103 mmol/L98 - 107 mmol/LMst. [facility]ary[facility] [place] [facility]- [place], KYCO2 [Moles/Vol]24 mmol/L20 - 31 mmol/LMst. [facility]ary[facility] [facility]y [facility]- [place], KYPotassium [Moles/Vol]3.8 mmol/L3.7 - 5.3 mmol/LMercy Health- [place], KYSodium [Moles/Vol]140 mmol/L135 - 144 mmol/LMst. mary[facility] [facility]- [place], KYHemoglobin and Hematocrit, Bloodon 06-17-2019 Hematocrit (Bld) [Volume fraction]35.4 %Low36 - 46 %[facility], [place] Hemoglobin (Bld) [Mass/Vol]12.1 g/dL12 - 16 g/dLKnox [facility]- [place], [place] Interpretation and review of laboratory resultsAbnormAtrium Health Stanly [facility]- [place], [place] Magnesiumon 55-00-1017Zisgwqcza [Mass/Vol]2.3 mg/dL1.6 - 2.6 mg/dLMount [facility]el [facility]- [place], KYMicroscopic Urinalysison 90-42-8966Srfkwukeh, UANOT REPORTEDNoneMey Health- [place], KYBacteria, UA1+AbnormalNoneMerc Health- [place], KYCasts UANOT REPORTED /LPFMercy Health- [place], KYCrystals UANOT REPORTEDNone /HPFMount Carmel Health System [facility]- [place], [place] Epithelial Cells UA2 TO 5/HPFMercy Health- [place], KYInterpretation and review of laboratory resultsAbnormalMercy Health- [place], KYMucus, UANOT REPORTEDNoneMercy Health- [place], KYOther Observations UANOT REPORTEDNOT REQ.[facility]- [place], KYRBC (U) [#/Vol]NOT REPORTEDMercy Health- [place], KYRenal Epithelial, UrineNOT REPORTED0 /HPFMercy Health- [place], KYTrichomonas, UANOT REPORTEDNoneMercy Health- [place], KYWBC, UA0 TO 20 /HPFMercy Health- [place], KYYeast, UANOT REPORTEDNoneMercy Health- [place], [place]- [facility]- [place], KYPhosphoruson 42-34-2159Xwfxexmzm [Mass/Vol]3.0 mg/dL2.6 - 4.5 mg/dLMercy Health- [place], KYProtein / creatinine ratio, urineon 06-17-2019 Creatinine, Ur228.2 mg/uAOwtx72 - 217 mg/dLMercy Health- [place], KYInterpretation and review of laboratory resultsAbnormalMercy Health- [place], KYProtein (U) [Mass/Vol]18 mg/dLMercy Health- [place], KYComment on above:No normal range established.Urine Total Protein Creatinine Ratio0.08[facility]- [place], [place] Sedimentation Rateon 11-93-8354Sup Rate24 mm0 - 30 mmMercy Health- [place], [place] Urinalysison 30-52-7035Wgmuzpntw UrineNegativeNEGATIVEMercy Health- [place], KYColor, UAYELLOWYELLOWMercy Health- [place], KYGlucose, UrNegativeNEGATIVEMercy [facility]- [place], KYInterpretation and review of laboratory resultsAbnormalMercy Health- [place], [place] Ketones Ql (U)NegativeNEGATIVEMercy Health- [place], KYLeukocyte esterase Test strip Ql (U)NegativeNEGATIVEMercy Health- [place], KYNitrite, UrineNegativeNEGATIVEMercy Health- [place], KYpH, UA6.0[facility]- [place], KYProtein (U) [Mass/Vol]TRACEAbnormal NEGATIVEMercy Health- [place], KYSpecific [place], UA1.025[facility]- [place], [place] Turbidity UAHAZYAbnormalCLEARMercy Health- [place], KYUrinalysis CommentsMercy Health- [place], KYUrine HgbNegativeNEGATIVEWestern [facility] Hospital, KYUrobilinogen, Urine NormalNormalWestern Reserve Hospital, KYMR CERVICAL SPINE WITHOUT CONTRASTon 02-03-2019 Motion artifact on essentially all of the sequences, somewhat degrading evaluation, particularly fine osseous and soft tissue detail. Disc-osteophyte complexes at C4-C5, C5-C6 and most prominently atC6-C7. At C6-C7, there is a disc-osteophyte complex with central disc protrusion creating effacement of the ventral aspect of the thecal sac, overall mild spinal canal stenosis and probable mild masseffect/impression on the ventral spinal cord. There is possible focal hyperintense intramedullary STIR/T2 signal at the C6-C7 level which may be due to myelomalacia or cord edema. 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 There is mild bilateral uncovertebraljoint and facet hypertrophy creating mild bilateral neural foraminal stenosis. There may be focal hyperintense intramedullary STIR/T2 signal at the C6-C7 level as on series 8, image 9 and series 10 images 18-21). At C7-T1, there is no significant spinal canal stenosis. There is left-sided uncovertebral joint and facet hypertrophy creating probable mild left-sided neural foraminal stenosis. [facility], Rad In [facility] - 02/03/2019 11:02 AM EDT EXAMINATION: MR [...] facets are anatomically aligned. The disc spaces appearrelatively maintained. No acute fracture is present. At [...] the degree of motion artifact. There is left- sided uncovertebral joint and facet hypertrophy creating mild [...] hypertrophy creating mild bilateral neural foraminal stenosis. Theremay be focal hyperintense intramedullary STIR/T2 signal at [...] C5-C6 and most prominently at C6-C7. At C6- C7, there is a disc-osteophyte complex with central disc protrusion creating effacement of the ventral aspect of the thecal sac, overall mild spinal canal stenosis and probable mild mass effect/impression on the ventral spinal cord. There is possible focal hyperintense intramedullary STIR/T2 signal at the C6-C7 level which may be due to myelomalacia or cord edema. /[facility] Workstation ID: [id number] CERVICAL SPINE WITHOUT CONTRASTEXAMINATION: MR CERVICAL SPINE WITHOUT CONTRAST HISTORY: ORDERING [...] MCCRAY on ThuFebruary 03, 2019 10:59:35 AM [facility] HospitalComment on above:Order Comment: Reason for exam?:neck pain Injury/Trauma or Illness?:Illness/Other How long have you had these symptoms (acute/chronic)?:Chronic Type of Exam?:Initial Additional signs and symptoms?:neck pain, chronic hx of multiple old injuries Cult,Mycobacteriaon [id number],MycobacteriaSpecimen Description .TISSUE EPIDURAL TISSUE Special Requests NOT REPORTED Direct Exam NO ACID FAST BACILLI SEEN (DIRECT SMEAR) Culture NO GROWTH 48 DAYS Report Status FINAL 10/11/2018[facility] HospitalComment on above:Performed By: #### TROPI #### [employer] [address] [place] [address] Cult,MycobacteriaSpecimen Description .SPINE .TISSUE T4 LAMINA Special Requests NOT REPORTED Direct Exam NO ACID FAST BACILLI SEEN (DIRECT SMEAR) Culture NO GROWTH 48 DAYS Report Status FINAL 10/11/2018[facility] Shelby HospitalComment on above:Performed By: #### LACWB #### [employer] [address] [place] [address] Cult,Funguson 78-53-9145Rolp,FungusSpecimen Description .TISSUE EPIDURAL TISSUE Special Requests NOT REPORTED Culture NO GROWTH 34 DAYS Report Status FINAL 09/27/2018[facility] Shelby HospitalComment on above:Performed By: #### LACWB #### [employer] [address] [place] [address] Cult,FungusSpecimen Description .SPINE .TISSUE T4 LAMINA Special Requests NOT REPORTED Culture NO GROWTH 34 DAYS Report Status FINAL 09/27/2018[facility] Shelby HospitalComment on above:Performed By: #### LACWB #### [employer] [address] [place] [address] BUNon 17-22-9892Ufgw nitrogen mass conc20 mg/dL91 Cook StreetComment on above:Performed By: #### [id number] ####OVIDIO [address]el[address]rg[address] [place], [place] [address]Pskebhilmlsm 22-89-4358Uwqrgvihbw mass conc1.3 mg/dLHigh0.5-1.1SNorth Arkansas Regional Medical CenterComment on above: Performed By: #### [id number] ####OVIDIO [address] [place] [address] eGFRon 19-77-9267zRYV AA54 mL/min/1.73 h6UchinqCorbhmssyNorth Arkansas Regional Medical Center Comment on above:Order Comment: Order added by Discern Expert.Performed By: #### [id number] ####OVIDIO [address]jtx[address]fff[address] [place], [place] [address]RFT/1.73 sq M predicted among non-blacks MDRD vol rate/area (S/P/Bld)45 mL/min/1.73 t3IlgaunMedical Center of South ArkansasComment on above:Order Comment: Order added by Discern Expert.Performed By: #### [id number] ####OVIDIO [address] [place], [place] [address]Dozp Diffon 45-83-6318Bwfrqwvrj Auto #/vol (Bld)0.0 E3/mcLNormal0.0-0.2SNorth Arkansas Regional Medical CenterComment on above:Order Comment: Order Added by Discern Expert.Performed By: #### [id number] ####OVIDIO AvalosKglBngj[address] [place], [place] [address]Otuocyouw/100 WBC Auto (Bld)1.1 % Normal0.0-2.0Peacehealth SystemComment on above:Order Comment: Order Added by Discern Expert.Performed By: #### [id number] ####OVIDIO LzbIpqs[address] [place], [place] [address]Wuh Absolute0.0 E3/mcLNormal0.0-0.7Peacehealth SystemComment on above:Order Comment: Order Added by Discern Expert.Performed By: #### [id number] ####OVIDIO AvalosQbeQjjt[address] [place], [place] [address]Xyhipoofvkx/100 WBC Auto (Bld)0.3 %Normal0.0-11.0[facility]health SystemComment on above:Order Comment: Order Added by Discern Expert.Performed By: #### [id number] ####OVIDIO AvalosWktTggo[address] [place], [place] [address]Bwjvvaertnp Auto #/vol (Bld)1.2 E3/mcLNormal1.2-3.4SAstria Regional Medical Center SystemComment on above:Order Comment: Order Added by Discern Expert.Performed By: #### [id number] ####OVIDIO [address] [place], [place] [address]Apxqssfynxo/100 WBC Auto (Bld)30.6 %Sszcvc08.0-55.0Peacehealth SystemComment on above:Order Comment: Order Added by Discern Expert.Performed By: #### [id number] ####OVIDIO [address] [place], [place] [address]Quem Absolute0.4 E3/mcLNormal0.0-0.7 Peacehealth SystemComment on above:Order Comment: Order Added by Discern Expert.Performed By: #### [id number] ####OVIDIO [address] [place], [place] [address]Qervjeqow/100 WBC Auto (Bld)10.2 %High0.0-10.0[facility] Health HospitalComment on above:Order Comment: Order Added by Discern Expert.Performed By: #### [id number] ####OVIDIO [address] [place], [place] [address]Oygcyo Absolute2.3 E3/mcLNormal1.4-6.5SAstria Regional Medical Center System Comment on above:Order Comment: Order Added by Discern Expert.Performed By: #### [id number] ####OVIDIO [address] [place], [place] [address]Ljuinb Auto57.8 % Edtgsp44.0-75.0Peacehealth SystemComment on above:Order Comment: Order Added by Discern Expert.Performed By: #### [id number] ####OVIDIO [address] [place], [place] [address]RNZ w/ Auto Diffon 64-42-0557Sdvglnxwktk distribution width Auto Ratio (RBC)19.9 %High11.5-14.5SAstria Regional [facility] Center SystemComment on above:Performed By: #### [id number] ####OVIDIO AvalosCjdFipd5122 [place] [id number] Auto Volume Fraction (Bld)26.5 %Low36.0-48.0 [facility] HospitalComment on above:Performed By: #### [id number] ####OVIDIO AvalosLhbIvny4924 [place] [address]Hemoglobin mass conc (Bld)8.7 g/dLLow12.0-16.0[facility] HospitalComment on above:Performed By: #### [id number] ####OVIDIO AvalosMxpUeuj0710 [address]H Auto Entitic mass (RBC)29.6 zrKgyzoj75.0-31.0[facility] HospitalComment on above:Performed By: #### [id number] ####OVIDIO AvalosXtvBico4509 [place], [place] [address]MCHC Auto mass conc (RBC)32.9 g/dLLow33.0-37.0[facility] HospitalComment on above:Performed By: #### [id number] ####OVIDIO AvalosQenIscs6827 [place], [place] [address]MCV Auto Entitic volume (RBC)89.8 rPBokhcr44.0-100.0 [facility] HospitalComment on above:Performed By: #### [id number] ####OVIDIO AvalosHqqMsgy4009 [place] [address]Platelet mean volume Auto Entitic volume (Bld)10.5 fLNormal7.4-11.0[facility] HospitalComment on above:Performed By: #### [id number] ####OVIDIO AvalosTzsBstg9581 [place], [place] [address]Fhwwdmitc Auto #/vol (Bld)117 E3/usJPem536-403DtbeoqdqqSt. Bernards Behavioral Health HospitalComment on above:Performed By: #### [id number] ####OVIDIO AvalosVvrBahn4902 [place], [place] [address]SEA Auto #/vol (Bld)2.95 E6/mcLLow3.90-5.40SNorth Arkansas Regional Medical CenterComment on above:Performed By: #### [id number] ####OVIDIO FtnCbva9008 [place], [place] [address]ZWS Auto #/vol (Bld)4.0 E3/mcLNormal 3.6-11.0[facility] SystemComment on above:Performed By: #### [id number] ####OVIDIO AfuWavc4151 [place], [place] [address]WRExw 09-97-6822PXJ mass conc0.83 mg/dLNormal0.00-1.00[facility] HospitalComment on above:Performed By: #### [id number] ####OVIDIO LyyMtoo4312 [place], [place] [address]Kwrqpor 30-02-2753Ggliwfaljncy Auto Ql (Bld)1+NormalSt. Bernards Behavioral Health HospitalComment on above:Order Comment: Order Added by Discern Expert. Performed By: #### [id number] ####OVIDIO AgkRnuq6062 [place] [address] Hypochromasia1+[facility] City [facility] CenterComment on above:Order Comment: Order Added by Discern Expert.Performed By: #### [id number] ####OVIDIO RzrSmoy9027 [place], [place] [address]TDH morphology finding Nom (Bld)SEE MORPHOLOGYForrest City Medical CenterComment on above:Order Comment: Order Added by Discern Expert.Performed By: #### [id number] ####OVIDIO OcqKygh9700 [place], [place] [address]Laz Rate Automatedon 87-11-1872Afq Rate Automated 15 mm/hrNoBaptist Health Medical CenterComment on above:Result Comment: AGE-SPECIFIC REFERENCE RANGES FOR SEDIMENTATION RATE AUTOMATED REFERENCE RANGE - MM/HR AGE MEN WOMEN 0-2 0-2 - PUBERTY 3-13 3-13 PUBERTY - 50 YRS 0-15 0-20 > 50 YRS0-20 0-30Performed By: #### [id number] ####OVIDIO Hematology Manual Unnkckbyqv8469 [place], [place] [address]rsbex morphon 09-20-2018 Platelet morphology finding Nom (Bld)MURFREESBORONoProvidence St. Peter Hospital SystemComment on above:Performed By: #### [id number] ####OVIDIO FmgBqew5693 [place], [place] [address]Ynrmfiloa Auto #/vol (Bld)NORMALForrest City Medical CenterComment on above:Performed By: #### [id number] ####OVIDIO VtyYgyk8672 [place], [place] [address]SABSY UREA NITROGENon 00-87-2546Iiqn nitrogen mass conc (Bld)19 mg/dLNormal7-20[facility] ElmerComment on above:Performed By: #### ACBC, ESR, BUN, CREAT, CREACT, FX ####Testing performed at [place] [id number] REACTIVE PROTEINon 18-76-9728TFY mass conc18.5 mg/LHigh0-10.0[facility] on above:Performed By: #### ACBC, ESR, BUN, CREAT, CREACT, FX ####Testing performed at [address] [address]DLJho 09-13-2018 ABSOLUTE BAS0.1 F39ZavfhhQflnfUnion County General HospitalComhavenwyck hospital on above:Performed By: #### ACBC, ESR, BUN, CREAT, CREACT, FX ####Testing performed at [place] [id number] EOS0.20 Q34LobbfjRgpbmFour [facility]ers [facility] on above:Performed By: #### ACBC, ESR, BUN, CREAT, CREACT, FX ####Testing performed at [place] [id number] NEUTROPHIL COUNT2.5 v69Oovkac7.0-7.0[facility] on above:Performed By: #### ACBC, ESR, BUN, CREAT, CREACT, FX ####Testing performed at [place] [id number]/100 WBC Auto (Bld)1.4 %Normal0.0-2.0[facility] on above:Performed By: #### ACBC, ESR, BUN, CREAT, CREACT, FX ####Testing performed at [address] [address]DKYLWMHGQ DIFFNoRUST on above:Performed By: #### ACBC, ESR, BUN, CREAT, CREACT, FX ####Testing performed at [address] [address]Bdgrilkzpzt/100 WBC Auto (Bld)3.5 %Normal0.0-11.0 [facility] on above:Performed By: #### ACBC, ESR, BUN, CREAT, CREACT, FX ####Testing performed at [address] [address]Mythclhqccc Auto #/vol (Bld)1.10 G08UdqttaGowzfUnion County General Hospital on above:Performed By: #### ACBC, ESR, BUN, CREAT, CREACT, FX ####Testing performed at [address] [address]Fbhcbzkewam/100 WBC Auto (Bld)27.0 %Ywtmmt87.0-55.0[facility] on above:Performed By: #### ACBC, ESR, BUN, CREAT, CREACT, FX ####Testing performed at [address] [address]Hlqsvxfdx Auto #/vol (Bld)0.4 X92ZijvegPhiiuRUST on above:Performed By: #### ACBC, ESR, BUN, CREAT, CREACT, FX ####Testing performed at [address] [address]Dgcvicsyu/100 WBC Auto (Bld)9.4 %Normal0.0-10.0[facility] on above:Performed By: #### ACBC, ESR, BUN, CREAT, CREACT, FX ####Testing performed at [address] [address]Iseeohvtcnk/100 WBC Auto (Bld) 58.7 %Cqpuuy57.0-75.0[facility] on above:Performed By: #### ACBC, ESR, BUN, CREAT, CREACT, FX ####Testing performed at [place] [address]Erythrocyte distribution width Auto Ratio (RBC)17.6 %High11.5-14.5[facility] on above:Performed By: #### ACBC, ESR, BUN, CREAT, CREACT, FX ####Testing performed at [place], [place] [address]Hematocrit Auto Volume Fraction (Bld)26.2 %Low36.0-48.0[facility] on above:Performed By: #### ACBC, ESR, BUN, CREAT, CREACT, FX ####Testing performed at [place], [place] [address]Hemoglobin mass conc (Bld)8.8 g/dLLow12.0-16.0[facility] on above:Performed By: #### ACBC, ESR, BUN, CREAT, CREACT, FX ####Testing performed at [place] [address]MCH Auto Entitic mass (RBC)29.3 eePdcqin87.0-35.0 [facility] on above:Performed By: #### ACBC, ESR, BUN, CREAT, CREACT, FX ####Testing performed at [place] [address]MCHC Auto mass conc (RBC)33.7 g/rFPehhsm16.0-37.0[facility] on above:Performed By: #### ACBC, ESR, BUN, CREAT, CREACT, FX ####Testing performed at [place] [address]MCV Auto Entitic volume (RBC)86.9 lNCvibzn05.0-100.0[facility] on above:Performed By: #### ACBC, ESR, BUN, CREAT, CREACT, FX ####Testing performed at [place], [place] [address]Platelet mean volume Auto Entitic volume (Bld)10.1 fLNormal 7.4-11.0[facility] on above:Performed By: #### ACBC, ESR, BUN, CREAT, CREACT, FX ####Testing performed at [place] [id number] Auto #/vol (Bld)130 /cmmNormal 130.0-400.0[facility] on above:Performed By: #### ACBC, ESR, BUN, CREAT, CREACT, FX ####Testing performed at [place] [address]RBC Auto #/vol (Bld)3.01 /cmmLow4.0-5.4[facility] on above:Performed By: #### ACBC, ESR, BUN, CREAT, CREACT, FX ####Testing performed at [place] [address]WBC Auto #/vol (Bld)4.2 /cmmNormal3.6-11.0[facility] on above:Performed By: #### ACBC, ESR, BUN, CREAT, CREACT, FX ####Testing performed at [place], [place] [address]CREATININE,SERUMon 22-49-5407Titqvccwor mass conc1.5 mg/dLHigh0.52-1.04 [facility] on above:Performed By: #### ACBC, ESR, BUN, CREAT, CREACT, FX ####Testing performed at [place] [id number]. GFR, Kioptrtu97 ml/min/1.73sq.mNCibola General Hospital on above:Performed By: #### ACBC, ESR, BUN, CREAT, CREACT, FX ####Testing performed at [place] [id number]. GFR,Non Gadmfaea13 ml/min/1.73sq.[facility] on above:Performed By: #### ACBC, ESR, BUN, CREAT, CREACT, FX ####Testing performed at [place] [id number]/1.73 sq M predicted among non-blacks MDRD vol rate/area (S/P/Bld)Average GFR for 30-39 years old = 109.[facility] Comment on above:Result Comment: Chronic Kidney disease, GFR = <60.Kidney failure, GFR = <15.The GFR estimate is not adjusted for extreme body surface area or acute process, nor has it been validated for women or ethnic groups other than and .Performed By: #### ACBC, ESR, BUN, CREAT, CREACT, FX ####Testing performed at [address] [address]ZKAtz 30-86-9120QNQ Velocity (Bld)49 mm/hHigh0-15 [facility] ElmerComment on above:Performed By: #### ACBC, ESR, BUN, CREAT, CREACT, FX ####Testing performed at [address] [address]JCN REQUESTon 85-94-1280SMQ TOFAX TO DR HARTMAN AT [phone] AND TO [facility] AT [phone] HospitalComment on above:Performed By: #### PHY, BUN, CREAT, FX ####Testing performed at [address] [address]VHF REQUEST on 29-20-2533JYC [id number] HospitalComment on above: Performed By: #### FX ####Testing performed at [address] [address]GSAMQ UREA NITROGENon 34-98-5752Mwls nitrogen mass conc (Bld)21 mg/dLHigh7-20[facility] ElmerComment on above:Performed By: #### PHY, BUN, CREAT, FX ####Testing performed at [address] [address]YYLQQJARDW,SERUMon 32-42-4366Arkuyykeyt mass conc 1.4 mg/dLHigh0.52-1.04[facility] ElmerComment on above:Performed By: #### PHY, BUN, CREAT, FX ####Testing performed at [address] [address]RGS. GFR, Klalsjpz91 ml/min/1.73sq.[facility] CenterComment on above:Performed By: #### PHY, BUN, CREAT, FX ####Testing performed at [address] [address]YCV. GFR,Non Ymgtazwu66 ml/min/1.73sq.[facility] Comment on above:Performed By: #### PHY, BUN, CREAT, FX ####Testing performed at [address] [address]CNA/1.73 sq M predicted among non-blacks MDRD vol rate/area (S/P/Bld)Average GFR for 30-39 years old = 109.[facility] HospitalComment on above:Result Comment: Chronic Kidney disease, GFR = <60.Kidney failure, GFR = <15.The GFR estimate is not adjusted for extreme body surface area or acute process, nor has it been validated for women or ethnic groups other than and . Performed By: #### PHY, BUN, CREAT, FX ####Testing performed at [address] [address]CTM REQUESTon 36-23-2683KZF TO [phone] [facility] HospitalComment on above:Performed By: #### PHY, BUN, CREAT, FX ####Testing performed at [address] [address]NEI [facility] PHYSICIAN 64-94-8876VYA [facility] PHYSICIAN DEVAN [facility] Women's HospitalComment on above:Performed By: #### PHY, BUN, CREAT, FX ####Testing performed at [address] [address]PEQdz 52-26-2811Sfvw nitrogen mass conc24 mg/dLPlateau Medical Center03-27 [facility] HospitalComment on above:Performed By: #### [id number] ####[facility] Uanpxjvz0804 [place], [place] [address]Yjoipdargjlr 08-27-2018 Creatinine mass conc1.6 mg/dLHigh0.5-1.1SNorth Arkansas Regional Medical CenterComment on above:Performed By: #### [id number] ####OVIDIO Lufsrkzr9241 [place], [place] [address]yAPUui 10-21-4651gMPX AA43 mL/min/1.73 x2NeabgsDgzmfkqczBaptist Health Medical CenterComment on above:Order Comment: Order added by Discern Expert.Performed By: #### [id number] ####OVIDIO LfuKhgp9023 [place], [place] [address]ZXH/1.73 sq M predicted among non-blacks MDRD vol rate/area (S/P/Bld)36 mL/min/1.73 m2 [facility] CenterComment on above:Order Comment: Order added by Discern Expert.Performed By: #### [id number] ####OVIDIO YexZlit6881 [place], [place] [address]Uqtt,Tissueon 38-38-6767Oxdh,TissueSpecimen Description .TISSUE EPIDURAL TISSUE Special Requests NOT [...] NOT REPORTED Trimethoprim/Sulfa <=10 SUSCEPTIBLE Vancomycin <=0.5 SUSCEPTIBLENoACMC Healthcare System GlenbeighComment on above:Performed By: #### LACWB #### [employer] [address] [place] [address] Cult,TissueSpecimen Description .SPINE .TISSUE T4 LAMINA Special Requests [...] NOT REPORTED Trimethoprim/Sulfa <=10 SUSCEPTIBLE Vancomycin <=0.5 SUSCEPTIBLENormalOhio State University Wexner Medical CenterComment on above:Performed By: #### LEATHAB #### [employer] [address] [place] [address] Basic Metabolic Profon 08-25-2018(cont.)NormalOhio State University Wexner Medical CenterComment on above:Result Comment: Average GFR for 30-39 years old: 107 mL/min/1.73sq m Chronic Kidney Disease: <60 mL/min/1.73sq m Kidney failure: <15 mL/min/1.73sq m eGFR calculated using average adult body mass. Additional eGFR calculator available at: http://www.Ryla.MogiMe/multiple_crcl_2012.htmPerformed By: #### LACHELLE #### [employer] [address] [place] [address] Anion gap molar conc14 mmol/LNormal9-17[facility] Medical CenterComment on above:Performed By: #### TERRYWB #### [employer] [address] [place] [address] Calcium mass conc9.1 mg/dLNormal8.6-10.4[facility] Medical CenterComment on above:Performed By: #### TERRYWB #### [employer] [address] [place] [address] Chloride molar conc96 mmol/GJno35-202JbjftOhio State University Wexner Medical CenterComment on above:Performed By: #### TERRYWB #### [employer] [address] [place] [address] CO2 molar conc23 mmol/RRaicxr16-03RlcdkOhio State University Wexner Medical Center Comment on above:Performed By: #### LACWB #### [facility] [employer] [address] [place] [address] Creatinine mass conc1.52 mg/dLHigh0.50-0.90[facility] Medical CenterComment on above:Performed By: #### LACWB #### [facility] [employer] [address] [place] [address] GFR, Amer46 mL/minLow>60[facility] Comment on above:Performed By: #### LACWB #### [facility] [employer] [address] [place] [address] GFR,non Amer38 mL/minLow>60[facility] Comment on above:Performed By: #### LACWB #### [facility] [employer] [address] [place] [address] Glucose mass conc95 mg/zHLqzxbf57-28WsnuaMemorial Medical CenterComment on above:Performed By: #### LACWB #### [facility] [employer] [address] [place] [address]148 Potassium molar conc4.5 mmol/LNormal3.7-5.3MMemorial Medical CenterComment on above:Performed By: #### LACWB #### [facility] [employer] [address] [place] [address] Sodium molar rdqt787 mmol/SFum485-840UdqehOhio State University Wexner Medical CenterComment on above:Performed By: #### LACWB #### [facility] [employer] [address] [place] [address] Urea nitrogen mass conc43 mg/dLHigh6-20[facility] Medical CenterComment on above:Performed By: #### LACWB #### [facility] [employer] [address] [place] [address] BUN/CRE RatioNOT REPORTEDNormal9-20[facility] Comment on above:Performed By: #### LEATHAB #### [address] [address] Staging:NOT REPORTEDNormalOhio State University Wexner Medical CenterComment on above:Performed By: #### TERRYWB #### [facility] [employer] [address] [place] [address] 11368 CBC with Diffon 33-32-2456Dzx. Basophil0.07 k/uLNormal0.00-0.20 [facility] CenterComment on above:Performed By: #### LEATHAB #### [facility] [employer] [address] [place] [address] Abs.Imm.Granulocyte0.08 k/uLNormal0.00-0.30[facility] Medical CenterComment on above:Performed By: #### TERRYWB #### [facility] [employer] [address] [place] [address] Abs.Neutrophil (Seg)5.77 k/uLNormal1.50-8.10[facility] Medical CenterComment on above:Performed By: #### TERRYWB #### [address] [address] Basophils/100 WBC (Bld)1 %Normal0-2MMemorial Medical Center Comment on above:Performed By: #### TERRYWB #### [facility] [employer] [address] [place] [address] Eosinophils #/vol (Bld)0.12 10*3/uLNormal0.00-0.44[facility] CenterComment on above:Performed By: #### LACWB #### [facility] [employer] [address] [place] [address] Eosinophils/100 WBC (Bld)1 %Normal1-4[facility] Medical CenterComment on above:Performed By: #### TERRYWB #### [facility] [address] [place] [address] Immature granulocytes #/vol (Bld)1 %Nhkn1WdterOhio State University Wexner Medical CenterComment on above:Performed By: #### LACWB #### [facility] [employer] [address] [place] [address] Lymphocytes #/vol (Bld)1.83 10*3/uLNormal1.10-3.70[facility] Medical CenterComment on above:Performed By: #### TERRYWB #### [facility] [employer] [address] [place] [address] Lymphocytes/100 WBC (Bld)21 %Wan20-35VwbrsOhio State University Wexner Medical CenterComment on above:Performed By: #### LACWB #### [facility] [employer] [address] [place] [address] Monocytes #/vol (Bld)0.92 10*3/uLNormal0.10-1.20[facility] CenterComment on above:Performed By: #### LACWB #### [facility] [employer] [address] [place] [address] Monocytes/100 WBC (Bld)11 %Normal3-12[facility] Medical CenterComment on above:Performed By: #### LACWB #### [facility] [address] [place] [address] 61619 Neutrophil (Seg)66 %Oxcs75-03TchzcOhio State University Wexner Medical Center Comment on above:Performed By: #### LACWB #### [facility] [employer] [address] [place] [address] 15398 Erythrocyte distribution width Ratio (RBC)14.6 %High11.8-14.4[facility] Medical CenterComment on above:Performed By: #### LACWB #### [facility] [employer] [address] [place] [address] 27943 Hematocrit Volume Fraction (Bld)32.6 %Low36.3-47.1MMemorial Medical CenterComment on above:Performed By: #### LACWB #### [facility] [employer] [address] [place] [address] 38699 Hemoglobin mass conc (Bld)10.0 g/dLLow11.9-15.1MMemorial Medical CenterComment on above:Performed By: #### LACWB #### [facility] [employer] [address] [place] [address] 23098 MCH Entitic mass (RBC)28.2 piAknrwm96.2-33.5[facility] Medical CenterComment on above:Performed By: #### LACWB #### [facility] [address] [place] [address] MCHC mass conc (RBC)30.7 g/lDUiokdp78.4-34.8[facility] Medical CenterComment on above:Performed By: #### LACWB #### [facility] [address] [place] [address] 18029 MCV Entitic volume (RBC)91.8 uESjjpai40.6-102.9[facility] Medical CenterComment on above:Performed By: #### LACWB #### [facility] [address] [place] [address]8799 NRBC Automated0.0 per 100 WBCNormal0.0[facility] Medical CenterComment on above:Performed By: #### LACWB #### [facility] [address] [place] [address]458 Platelet mean volume Entitic volume (Bld)10.4 fLNormal8.1-13.5[facility] Medical CenterComment on above:Performed By: #### LACWB #### [facility] [address] [place] [address] Platelets #/vol (Bld)292 10*3/iMUibkud681-742BklubCommunity Regional Medical CenterComment on above:Performed By: #### LACWB #### [facility] [address] [place] [address] 16100 RBC #/vol (Bld)3.55 10*6/uLLow3.95-5.11[facility] Medical CenterComment on above:Performed By: #### TERRYWB #### [facility] [address] [place] [address] 27321 RBC morphology finding Nom (Bld)ANISOCYTOSIS PRESENTNormalOhio State University Wexner Medical CenterComment on above:Performed By: #### LACWB #### [facility] [address] [place] [address] 28582 WBC #/vol (Bld)8.8 10*3/uLNormal3.5-11.3MMemorial Medical CenterComment on above:Performed By: #### LACWB #### [facility] [address] [place] [address] 32253 Auto Diff PerformedNOT REPORTEDOhioHealth Shelby HospitalComment on above:Performed By: #### LACWB #### [facility] [address] [place] [address] 12594 Platelets #/vol (Bld)NOT REPORTEDNormalOhio State University Wexner Medical CenterComment on above:Performed By: #### LACWB #### [facility] [address] [place] [address]7987 WBC MorphologyNOT REPORTEDOhioHealth Shelby Hospital Comment on above:Performed By: #### LACWB #### [facility] [address] [place] [address]22 Fungi,Direct Examon [id number],Direct ExamSpecimen Description .SPINE .TISSUE T4 LAMINA Special Requests NOT REPORTED Direct Exam NO FUNGAL ELEMENTS SEEN Report Status FINAL 08/25/2018NormalOhio State University Wexner Medical CenterComment on above:Performed By: #### LACWB #### [facility] [address] [place] [address] Magnesiumon 12-21-9146Ocouksoyc mass conc2.4 mg/dLNormal1.6-2.6 [facility] Medical CenterComment on above:Performed By: #### LACWB #### [facility] [address] [place], [place] [address] Procalcitoninon 60-19-0081Ckppigf mass conc0.13 ng/mLHigh<0.09[facility] Medical CenterComment on above:Result Comment: Suspected Sepsis: 0.09-0.49 ng/mL Low likelihood [...] entered into the Change in Procalcitonin Calculator (www.mzanoc-qki-viynyignkz.com) to determine the patient's Mortality Risk PrognosisPerformed By: #### LACWB #### [facility] [address] [place] [address] Cult,Aerobe/Anaerobeon 67-49-1266Ywzy,Aerobe/AnaerobeSpecimen Description .SPINE Special Requests NOT REPORTED Direct Exam DUPLICATE ORDER SEE RESULTS FOR TISSUE CULTURE Culture NOT REPORTED Report Status FINAL 08/24/2018[facility] HospitalComment on above:Performed By: #### SPAG #### [employer] [address] [place], [place] [address] Cult,Aerobe/AnaerobeSpecimen Description .SPINE Special Requests NOT REPORTED Direct Exam DUPLICATE ORDER SEE RESUULTS FOR TISSUE CULTURE Culture NOT REPORTED Report Status FINAL 08/24/2018[facility] HospitalComment on above:Performed By: #### SPAG #### [employer] [address] [place] [address] FLUORO FOR SURGICAL PROCEDURESon 71-19-6268EVBAQY FOR SURGICAL PROCEDURESRadiology exam is complete. No Radiologist dictation. Please follow up with ordering provider. Final resultNoACMC Healthcare System GlenbeighOPERATIVE REPORTon 08-24-[address] [address] OPERATIVE REPORT PATIENT NAME: CELINA GASPAR : 1980 MED REC NO: [id number] ROOM: [facility] ACCOUNT NO: [id number] ADMIT DATE: 08/15/2018 PROVIDER: Lita Mccray MD DATE OF PROCEDURE: 08/23/2018 SURGEON: Lita Mccray MD CONTOUR SANDER: Eliel Larios DO PREOPERATIVE DIAGNOSIS: Epidural abscess, T3, T4, T5. POSTOPERATIVE DIAGNOSES: Epidural abscess, T3, T4, T5 with chronic granulation, T3, T4, T5. OPERATIONS/PROCEDURES: Decompressive laminectomy, T4, with partial T3 and [...] room in satisfactory condition. LITA MCCRAY MD LUIZ/V_SSNCK_I Doc#: [id number] CC: Lita Mccray MDNormalOhio State University Wexner Medical CenterProcalcitoninon 80-99-8300Besojqi mass conc0.16 ng/mLHigh<0.09[facility] Comment on above:Result Comment: Suspected Sepsis: 0.09-0.49 ng/mL Low likelihood [...] entered into the Change in Procalcitonin Calculator (www.hvzgxz-pgh-bieduiezsv.MogiMe) to determine the patient's Mortality Risk PrognosisPerformed By: #### SPAG #### [employer] [address] [place] [address] Basic Metab w/rfx MGon 08-23-2018(cont.)NormalOhio State University Wexner Medical CenterComment on above:Result Comment: Average GFR for 30-39 years old: 107 mL/min/1.73sq m Chronic Kidney Disease: <60 mL/min/1.73sq m Kidney failure: <15 mL/min/1.73sq m eGFR calculated using average adult body mass. Additional eGFR calculator available at: [email or web address] By: #### SPAG #### [facility] [address] [place] [address] Anion gap molar conc14 mmol/LNormal9-17[facility]ner Medical CenterComment on above:Performed By: #### SPAG #### [facility] [address] [place] [address] 00205 Calcium mass conc9.9 mg/dLNormal8.6-10.4[facility] CenterComment on above:Performed By: #### SPAG #### [facility] [address] [place] [address] 18542 Chloride molar conc99 mmol/ZDuzisw24-056AdyhqOhio State University Wexner Medical CenterComment on above:Performed By: #### SPAG #### [facility] [address] [place] [address] 43686 CO2 molar conc26 mmol/VFwxxri72-10IukjdOhio State University Wexner Medical Center Comment on above:Performed By: #### SPAG #### [facility] [address] [place] [address] 24224 Creatinine mass conc1.42 mg/dLHigh0.50-0.90[facility] CenterComment on above:Performed By: #### SPAG #### [facility] [address] [place] [address] 57324 GFR, Amer50 mL/minLow>60[facility] Comment on above:Performed By: #### SPAG #### [facility] [address] [place] [address] 36659 GFR,non Amer41 mL/minLow>60[facility] Comment on above:Performed By: #### SPAG #### [facility] [address] [place] [address] 60790 Glucose mass conc95 mg/uKHbgedz17-36LcpdmMemorial Medical CenterComment on above:Performed By: #### SPAG #### [facility] [address] [place] [address] 37705 Potassium molar conc4.9 mmol/LNormal3.7-5.3MercRio Hondo HospitalComment on above:Result Comment: SPECIMEN SLIGHTLY HEMOLYZED, RESULTS MAY BE ADVERSELY AFFECTED.Performed By: #### DIEGO #### [facility] [address] [place] [address] 59054 Sodium molar mbkp961 mmol/MGuimdq627-208ZnsneOhio State University Wexner Medical CenterComment on above:Performed By: #### DIEGO #### [facility] [address] [place] [address] 21373 Urea nitrogen mass conc31 mg/dLHigh6-20[facility] CenterComment on above:Performed By: #### DIEGO #### [facility] [address] [place] [address] BUN/CRE RatioNOT REPORTEDNormal9-20[facility] Comment on above:Performed By: #### DIEGO #### [facility] [address] [place] [address] Staging:NOT REPORTEDNormalMerCommunity Regional Medical CenterComment on above:Performed By: #### DIEGO #### [facility] [address] [place] [address] CBC with Diffon 14-56-0927Rvs. Basophil0.06 k/uLNormal0.00-0.20 [facility] CenterComment on above:Performed By: #### DIEGO #### [facility] [address] [place] [address] 43851 Abs.Imm.Granulocyte0.22 k/uLNormal0.00-0.30[facility] CenterComment on above:Performed By: #### DIEGO #### [facility] [address] [place] [address] 78561 Abs.Neutrophil (Seg)4.43 k/uLNormal1.50-8.10[facility] CenterComment on above:Performed By: #### SPAG #### [address] [address] Basophils/100 WBC (Bld)1 %Normal0-2MMemorial Medical Center Comment on above:Performed By: #### JANNETHG #### [address] [address] Eosinophils #/vol (Bld)0.15 10*3/uLNormal0.00-0.44[facility] CenterComment on above:Performed By: #### JANNETHG #### [address] [address] Eosinophils/100 WBC (Bld)2 %Normal1-4[facility] Medical CenterComment on above:Performed By: #### JANNETHG #### [address] 11868 Erythrocyte distribution width Ratio (RBC)14.4 %Aqpxuh36.8-14.4 [facility] CenterComment on above:Performed By: #### JANNETHG #### [address] [address] Hematocrit Volume Fraction (Bld)33.2 %Low36.3-47.1MMemorial Medical CenterComment on above:Performed By: #### SPAG #### [address] 19553 Hemoglobin mass conc (Bld)10.4 g/dLLow11.9-15.1MMemorial Medical CenterComment on above:Performed By: #### SPAG #### [address] 26767 Immature granulocytes #/vol (Bld)3 %Sldc1EjeakOhio State University Wexner Medical CenterComment on above:Performed By: #### SPAG #### [address] [place] [address] Lymphocytes #/vol (Bld)2.22 10*3/uLNormal1.10-3.70[facility] Medical CenterComment on above:Performed By: #### JANNETHG #### [facility] [address] [place] [address] 75079 Lymphocytes/100 WBC (Bld)29 %Bafgkv96-82SihvoOhio State University Wexner Medical CenterComment on above:Performed By: #### DIEGO #### [facility] [address] [place] [address] 43162 MCH Entitic mass (RBC)27.7 ogHuyxfh73.2-33.5[facility] Medical CenterComment on above:Performed By: #### DIEGO #### [facility] [address] [place] [address] 11306 MCHC mass conc (RBC)31.3 g/fBEffeoe67.4-34.8[facility] Medical CenterComment on above:Performed By: #### DIEGO #### [facility] [address] [place] [address] 48675 MCV Entitic volume (RBC)88.3 wLMfrrzs90.6-102.9[facility] Medical CenterComment on above:Performed By: #### JANNETHG #### [facility] [address] [place] [address] 83850 Monocytes #/vol (Bld)0.63 10*3/uLNormal0.10-1.20[facility] Medical CenterComment on above:Performed By: #### JANNETHG #### [facility] [address] [place] [address] 81657 Monocytes/100 WBC (Bld)8 %Normal3-12[facility] Medical CenterComment on above:Performed By: #### SPAG #### [facility] [address] [place] [address] 81049 Neutrophil (Seg)57 %Buqrwt41-05EkkbhOhio State University Wexner Medical Center Comment on above:Performed By: #### JANNETHG #### [facility] [address] [place] [address] 74011 NRBC Automated0.0 per 100 WBCNormal0.0[facility] Medical CenterComment on above:Performed By: #### SPAG #### [address] [address]28 Platelets #/vol (Bld)See Reflexed IPF PgrvbmDgzhqy205-052AhmygOhio State University Wexner Medical CenterComment on above:Performed By: #### SPAG #### [address] 08608 RBC #/vol (Bld)3.76 10*6/uLLow3.95-5.11[facility] Medical CenterComment on above:Performed By: #### SPAG #### [address] 92294 WBC #/vol (Bld)7.7 10*3/uLNormal3.5-11.3MMemorial Medical CenterComment on above:Performed By: #### SPAG #### [facility] [address] [place] [address] 29234 Auto Diff PerformedNOT REPORTEDNormalOhio State University Wexner Medical CenterComment on above:Performed By: #### SPAG #### [facility] [address] [place] [address] 24405 Platelet mean volume Entitic volume (Bld)NOT REPORTEDNormal8.1-13.5 [facility] CenterComment on above:Performed By: #### SPAG #### [address] 86559 Platelets #/vol (Bld)NOT REPORTEDOhioHealth Shelby HospitalComment on above:Performed By: #### SPAG #### [facility] [address] [place] [address] 10833 RBC morphology finding Nom (Bld)NOT REPORTEDOhioHealth Shelby HospitalComment on above:Performed By: #### SPAG #### [facility] [address] [place] [address] 05806 WBC MorphologyNOT REPORTEDOhioHealth Shelby Hospital Comment on above:Performed By: #### SPAG #### [facility] [address] [place] [address] 07695 Cult,Bloodon [id number],BloodSpecimen Description .BLOOD Special Requests L AC 6ML Culture NO GROWTH 6 DAYS Report Status FINAL 08/23/2018[facility] Shelby HospitalComment on above:Performed By: #### SPAG #### [facility] [address] [place] [address] 50033 Cult,BloodSpecimen Description .BLOOD Special Requests L FOREARM 6ML Culture NO GROWTH 6 DAYS Report Status FINAL 08/23/2018[facility] Shelby HospitalComment on above:Performed By: #### SPAG #### [facility] [address] [place] [address] 58344 PLT, Immature Fract.on 09-69-8816Mupcnpiq, Fluoresc.113 k/uLLow [address] [place], [place] [address]Comment on above:Performed By: #### SPAG #### [facility] [address] [place] [address] 69856 PLT, Immature Fract.3.7 %Normal1.1-10.3[facility]ide Community HospitalComment on above:Performed By: #### SPAG #### [facility] [address] [place] [address] 75224 CBC with Diffon 18-77-4212Vkf. Basophil0.00 k/uLNormal0.0-0.2MMemorial Medical CenterComment on above:Performed By: #### ULAG #### [address] [address]28 Abs.Imm.Granulocyte0.30 k/uLNormal0.00-0.30[facility] Medical CenterComment on above:Performed By: #### ULAG #### [address] [address]604 Abs.Neutrophil (Seg)4.87 k/uLNormal1.8-7.7[facility] Medical CenterComment on above:Performed By: #### ULAG #### [address] [address]60[address] Basophils/100 WBC (Bld)0 %Normal0-2MMemorial Medical Center Comment on above:Performed By: #### ULAG #### [address] 08019 Eosinophils #/vol (Bld)0.00 10*3/uLNormal0.0-0.4[facility] CenterComment on above:Performed By: #### ULAG #### [address] [address] Eosinophils/100 WBC (Bld)0 %Low1-4[facility] Comment on above:Performed By: #### ULAG #### [address] [address]447 Immature granulocytes #/vol (Bld)4 %Aayk9YemfjOhio State University Wexner Medical CenterComment on above:Performed By: #### ULAG #### [address] 30092 Lymphocytes #/vol (Bld)1.88 10*3/uLNormal1.0-4.8[facility] CenterComment on above:Performed By: #### ULAG #### [facility] [address] [place] [address] 59323 Lymphocytes/100 WBC (Bld)25 %Atioaz67-92BliyjOhio State University Wexner Medical CenterComment on above:Performed By: #### ULAG #### [facility] [address] [place] [address] 55792 Monocytes #/vol (Bld)0.45 10*3/uLNormal0.1-0.8[facility] CenterComment on above:Performed By: #### ULAG #### [facility] [address] [place] [address] 32008 Monocytes/100 WBC (Bld)6 %Normal1-7[facility] Comment on above:Performed By: #### ULAG #### [facility] [address] [place] [address] 84935 Morphology Interp Rehan (Bld)ANISOCYTOSIS PRESENTNormalOhio State University Wexner Medical CenterComment on above:Performed By: #### ULAG #### [facility] [address] [place] [address] 75521 Neutrophil (Seg)65 %Lyhbok61-63VunxfOhio State University Wexner Medical Center Comment on above:Performed By: #### ULAG #### [facility] [address] [place] [address] 86296 Erythrocyte distribution width Ratio (RBC)14.5 %High11.8-14.4[facility] Medical CenterComment on above:Performed By: #### ULAG #### [facility] [address] [place] [address] 22510 Hematocrit Volume Fraction (Bld)38.1 %Jdxote52.3-47.1MercRio Hondo HospitalComment on above:Performed By: #### ULAG #### [address] 13634 Hemoglobin mass conc (Bld)11.5 g/dLLow11.9-15.1MMemorial Medical CenterComment on above:Performed By: #### ULAG #### [address] 97986 MCH Entitic mass (RBC)28.3 rfQzdbwx66.2-33.5[facility] CenterComment on above:Performed By: #### ULAG #### [address] 03031 MCHC mass conc (RBC)30.2 g/oMWrawfw04.4-34.8[facility] Medical CenterComment on above:Performed By: #### ULAG #### [address] 80812 MCV Entitic volume (RBC)93.6 wKXeyjqq76.6-102.9[facility] Medical CenterComment on above:Performed By: #### ULAG #### [address] 06777 NRBC Automated0.0 per 100 WBCNormal0.0[facility] CenterComment on above:Performed By: #### ULAG #### [address] 56287 Platelet mean volume Entitic volume (Bld)10.7 fLNormal8.1-13.5[facility] CenterComment on above:Performed By: #### ULAG #### [address] 61773 Platelets #/vol (Bld)265 10*3/lEKrkyuw975-515CynspOhio State University Wexner Medical CenterComment on above:Performed By: #### ULAG #### [facility] [address] [place] [address] 67792 RBC #/vol (Bld)4.07 10*6/uLNormal3.95-5.11[facility] CenterComment on above:Performed By: #### ULAG #### [facility] [address] [place] [address] 30812 WBC #/vol (Bld)7.5 10*3/uLNormal3.5-11.3MercRio Hondo HospitalComment on above:Performed By: #### ULAG #### [facility] [address] [place] [address] 20520 Auto Diff PerformedNOT [facility] Affairs Medical CenterComment on above:Performed By: #### ULAG #### [facility] [address] [place] [address] 07989 Platelets #/vol (Bld)NOT REPORTEDOhioHealth Shelby HospitalComment on above:Performed By: #### ULAG #### [facility] [address] [place] [address] 77015 RBC morphology finding Nom (Bld)NOT [facility] CenterComment on above:Performed By: #### ULAG #### [facility] [address] [place] [address] 42346 WBC MorphologyNOT [facility] Comment on above:Performed By: #### ULAG #### [facility] [address] [place] [address] 65145 Comp Metabolic Pr/rfx MGon 33-35-4528Skwthiw mass conc3.2 g/dLLow 3.5-5.2MercRio Hondo HospitalComment on above:Performed By: #### ULAG #### [facility] [address] [place] [address] 58341 Albumin/Globulin mass ratio0.8 {ratio}Low1.0-2.5[facility] Medical CenterComment on above:Performed By: #### IRLANDA #### [facility] [address] [place] [address] 54285 Alkaline Phos90 U/GCvlacu34-136NeaeaOhio State University We[facility]ner Medical Center Comment on above:Performed By: #### SEBAG #### [facility] [address] [place] [address] 05646 ALT enzyme act/vol18 U/LNormal5-33[facility] Comment on above:Performed By: #### IRLANDA #### [facility] [address] [place] [address] 02041 AST enzyme act/vol16 U/LNormal<32[facility] Comment on above:Performed By: #### IRLANDA #### [facility] [address] [place] [address] 31422 Protein mass conc7.0 g/dLNormal6.4-8.3Mst. mary[facility], [facility] campusy Riverside Community HospitalComment on above:Performed By: #### SEBAG #### [address] [address] (cont.)NormalOhio State University Wexner Medical CenterComment on above: Result Comment: Average GFR for 30-39 years old: 107 mL/min/1.73sq m Chronic Kidney Disease: <60 mL/min/1.73sq m Kidney failure: <15 mL/min/1.73sq m eGFR calculated using average adult body mass. Additional eGFR calculator available at: [email or web address] By: #### ULAG #### [facility] [address] [place] [address] 75683 Anion gap molar conc15 mmol/LNormal9-17[facility] CenterComment on above:Performed By: #### ULAG #### [facility] [address] [place] [address] Bilirubin Ql (U)0.34 mg/dLNormal0.3-1.2MMemorial Medical CenterComment on above:Performed By: #### ULAG #### [facility] [address] [place] [address] 16220 Calcium mass conc9.7 mg/dLNormal8.6-10.4[facility] CenterComment on above:Performed By: #### ULAG #### [facility] [address] [place] [address] 74435 Chloride molar gdzb340 mmol/LVzqalr99-140AotyeOhio State University Wexner Medical CenterComment on above:Performed By: #### ULAG #### [facility] [address] [place] [address] 49512 CO2 molar conc24 mmol/YYztiqh70-50HsfcxOhio State University [facility] Medical Center Comment on above:Performed By: #### ULAG #### [facility] [address] [place] [address] 33441 Creatinine mass conc1.02 mg/dLHigh0.50-0.90[facility] CenterComment on above:Performed By: #### ULAG #### [facility] [address] [place] [address] 87256 GFR, Amer>60Normal>60[facility] CenterComment on above:Performed By: #### ULAG #### [facility] [address] [place] [address] 13670 GFR,non Amer>60Normal>60[facility] Comment on above:Performed By: #### ULAG #### [facility] [address] [place] [address] 15812 Glucose mass ekya662 mg/rJApua87-33YecdiMemorial Medical Center Comment on above:Performed By: #### ULAG #### [facility] [address] [place] [address] 72398 Potassium molar conc4.5 mmol/LNormal3.7-5.3MMemorial Medical CenterComment on above:Performed By: #### ULAG #### [facility] [address] [place] [address] 55098 Sodium molar rxwg736 mmol/LSjccqd766-008EhzqvOhio State University Wexner Medical CenterComment on above:Performed By: #### ULAG #### [facility] [address] [place] [address] 62557 Urea nitrogen mass conc19 mg/dLNormal6-20[facility] CenterComment on above:Performed By: #### ULAG #### [facility] [address] [place] [address] 41511 BUN/CRE RatioNOT REPORTEDNormal9-20[facility] Comment on above:Performed By: #### ULAG #### [facility] [address] [place] [address] 75181 Staging:NOT REPORTEDNormalOhio State University Wexner Medical CenterComment on above:Performed By: #### ULAG #### [facility] [address] [place] [address] 86876 Magnesiumon 73-55-6475Dzddhivps mass conc2.4 mg/dLNormal1.6-2.6 [facility] CenterComment on above:Performed By: #### ULAG #### [facility] [address] [place] [address] 01779 Vancomycin Troughon 38-47-8699Yjmatnwhsc Adjrff37.2 ug/mLCritically high10.0-20.0[facility] CenterComment on above:Result Comment: Higher trough serum vancomycin concentrations of 15-20 ug/mL are recommended for complicated infections such as bacteremia, endocarditis, osteomyelitis, meningitis, and hospital acquired pneumonia. ADDED ONPerformed By: #### ULAG #### [facility] [address] [place] [address] 66239 Date last dose,NOT REPORTEDNoACMC Healthcare System [facility] Comment on above:Performed By: #### ULAG #### [facility] [address] [place] [address] 98342 Dose amount,NOT REPORTEDNoACMC Healthcare System Glen[facility] Comment on above:Performed By: #### ULAG #### [facility] [address] [place] [address] 30858 Time last dose,NOT REPORTEDOhioHealth Shelby Hospital Comment on above:Performed By: #### ULAG #### [facility] [address] [place] [address] 57196 CBC with Diffon 80-83-7661Ipi. Basophil0.08 k/uLNormal0.00-0.20 [facility] CenterComment on above:Performed By: #### ULAG #### [facility] [address] [place] [address] 76564 Abs.Imm.Granulocyte0.50 k/uLHigh0.00-0.30[facility] CenterComment on above:Performed By: #### ULAG #### [facility] [address] [place] [address] 63715 Abs.Neutrophil (Seg)4.73 k/uLNormal1.50-8.10[facility] CenterComment on above:Performed By: #### ULAG #### [facility] [address] [place] [address] 55933 Basophils/100 WBC (Bld)1 %Normal0-2MMemorial Medical Center Comment on above:Performed By: #### ULAG #### [address] [address] Eosinophils #/vol (Bld)0.17 10*3/uLNormal0.00-0.44[facility] CenterComment on above:Performed By: #### ULAG #### [facility] [address] [place] [address] 22062 Eosinophils/100 WBC (Bld)2 %Normal1-4[facility] Medical CenterComment on above:Performed By: #### ULAG #### [facility] [address] [place] [address] 87005 Immature granulocytes #/vol (Bld)6 %Kdsk5HbakuOhio State University Wexner Medical CenterComment on above:Performed By: #### ULAG #### [facility] [address] [place] [address] 39250 Lymphocytes #/vol (Bld)2.24 10*3/uLNormal1.10-3.70[facility] CenterComment on above:Performed By: #### ULAG #### [facility] [address] [place] [address] 72517 Lymphocytes/100 WBC (Bld)27 %Favkpp11-79HoehjOhio State University Wexner Medical CenterComment on above:Performed By: #### ULAG #### [facility] [address] [place] [address] 51778 Monocytes #/vol (Bld)0.58 10*3/uLNormal0.10-1.20[facility] CenterComment on above:Performed By: #### ULAG #### [facility] [address] [place] [address] 95002 Monocytes/100 WBC (Bld)7 %Normal3-12[facility] CenterComment on above:Performed By: #### ULAG #### [facility] [address] [place] [address] 32299 Morphology Interp Rehan (Bld)ANISOCYTOSIS PRESENTNormalOhio State University Wexner Medical CenterComment on above:Performed By: #### ULAG #### [address] [address]46 Neutrophil (Seg)57 %Obtvta87-51SnetwOhio State University We[facility]ner Medical Center Comment on above:Performed By: #### ULAG #### [address] [address]79 Erythrocyte distribution width Ratio (RBC)14.6 %High11.8-14.4[facility] Medical CenterComment on above:Performed By: #### ULAG #### [address] [address]991 Hematocrit Volume Fraction (Bld)38.5 %Votdrb56.3-47.1MMemorial Medical CenterComment on above:Performed By: #### ULAG #### [address] [address] Hemoglobin mass conc (Bld)11.5 g/dLLow11.9-15.1MMemorial Medical CenterComment on above:Performed By: #### ULAG #### [address] [address]97 MCH Entitic mass (RBC)28.2 yjSiuyie35.2-33.5[facility] CenterComment on above:Performed By: #### ULAG #### [address] 07021 MCHC mass conc (RBC)29.9 g/lFYmswrf78.4-34.8[facility] CenterComment on above:Performed By: #### ULAG #### [address] 87043 MCV Entitic volume (RBC)94.4 bXMxhtaq64.6-102.9[facility] CenterComment on above:Performed By: #### ULAG #### [facility] [address] [place] [address] 28232 NRBC Automated0.0 per 100 WBCNormal0.0[facility] Medical CenterComment on above:Performed By: #### ULAG #### [facility] [address] [place] [address] 12716 Platelet mean volume Entitic volume (Bld)10.5 fLNormal8.1-13.5[facility] CenterComment on above:Performed By: #### ULAG #### [facility] [address] [place] [address] 43054 Platelets #/vol (Bld)264 10*3/oSPexebv657-969JpzplOhio State University Wexner Medical CenterComment on above:Performed By: #### ULAG #### [facility] [address] [place] [address] 05642 RBC #/vol (Bld)4.08 10*6/uLNormal3.95-5.11[facility] CenterComment on above:Performed By: #### ULAG #### [facility] [address] [place] [address] 95187 WBC #/vol (Bld)8.3 10*3/uLNormal3.5-11.3MMemorial Medical CenterComment on above:Performed By: #### ULAG #### [facility] [address] [place] [address] 13604 Auto Diff PerformedNOT REPORTEDOhioHealth Shelby HospitalComment on above:Performed By: #### ULAG #### [facility] [address] [place] [address] 71639 Platelets #/vol (Bld)NOT REPORTEDOhioHealth Shelby HospitalComment on above:Performed By: #### ULAG #### [facility] [address] [place] [address]155 RBC morphology finding Nom (Bld)NOT REPORTEDNoACMC Healthcare System GlenbeighComment on above:Performed By: #### ULAG #### [facility] [address] [place] [address] WBC MorphologyNOT REPORTEDNoACMC Healthcare System Glenbeigh Comment on above:Performed By: #### ULAG #### [facility] [place] [address] Comp Metabolic Pr/rfx MGon 08-21-2018(cont.)NormalOhio State University Wexner Medical CenterComment on above:Result Comment: Average GFR for 30-39 years old: 107 mL/min/1.73sq m Chronic Kidney Disease: <60 mL/min/1.73sq m Kidney failure: <15 mL/min/1.73sq m eGFR calculated using average adult body mass. Additional eGFR calculator available at: http://www.Ryla.MogiMe/multiple_crcl_2012.htmPerformed By: #### ULAG #### [facility] [address] [place] [address] Albumin mass conc2.9 g/dLLow3.5-5.2MMemorial Medical Center Comment on above:Performed By: #### ULAG #### [facility] [address] [place] [address] Albumin/Globulin mass ratio0.7 {ratio}Low1.0-2.5[facility]xner Medical CenterComment on above:Performed By: #### ULAG #### [facility] [address] [place] [address] Alkaline Phos98 U/ROfwfyv11-970BfencOhio State University Wexner Medical Center Comment on above:Performed By: #### ULAG #### [facility] [address] [place] [address] ALT enzyme act/vol19 U/LNormal5-33[facility] Comment on above:Performed By: #### ULAG #### [facility] [place] [address] Anion gap molar conc14 mmol/LNormal9-17[facility] Medical CenterComment on above:Performed By: #### ULAG #### [facility] [address] [place] [address] 04308 AST enzyme act/vol21 U/LNormal<32[facility] Comment on above:Performed By: #### ULAG #### [facility] [address] [place] [address] 29268 Bilirubin Ql (U)0.32 mg/dLNormal0.3-1.2MMemorial Medical CenterComment on above:Performed By: #### ULAG #### [facility] [address] [place] [address] 25122 Calcium mass conc9.1 mg/dLNormal8.6-10.4[facility] Medical CenterComment on above:Performed By: #### ULAG #### [facility] [address] [place] [address] 29652 Chloride molar vtax101 mmol/DPvzxuf24-794FhjnuOhio State University Wexner Medical CenterComment on above:Performed By: #### ULAG #### [facility] [address] [place] [address] 80974 CO2 molar conc23 mmol/HJcwhrw85-76YwniwOhio State University Wexner Medical Center Comment on above:Performed By: #### ULAG #### [facility] [address] [place] [address] 52761 Creatinine mass conc0.90 mg/dLNormal0.50-0.90[facility] Medical CenterComment on above:Performed By: #### ULAG #### [facility] [address] [place] [address] 37632 GFR, Amer>60Normal>60[facility] Medical CenterComment on above:Performed By: #### ULAG #### [address] [address] GFR,non Amer>60Normal>60[facility] Comment on above:Performed By: #### ULAG #### [address] [address] Glucose mass qhzz128 mg/eNOpwv61-79SvaxzMemorial Medical Center Comment on above:Performed By: #### ULAG #### [address] [address] Potassium molar conc4.6 mmol/LNormal3.7-5.3MMemorial Medical CenterComment on above:Performed By: #### ULAG #### [address] [address] Protein mass conc6.9 g/dLNormal6.4-8.3MMemorial Medical CenterComment on above:Performed By: #### ULAG #### [address] [address] Sodium molar pdqs440 mmol/BVunlpw081-952SoclsOhio State University Wexner Medical CenterComment on above:Performed By: #### ULAG #### [address] [address] Urea nitrogen mass conc17 mg/dLNormal6-20[facility] Medical CenterComment on above:Performed By: #### ULAG #### [address] [address] BUN/CRE RatioNOT REPORTEDNormal9-20[facility] Comment on above:Performed By: #### ULAG #### [address] [address] Staging:NOT REPORTEDNoACMC Healthcare System GlenbeighComment on above:Performed By: #### ULAG #### [facility] [address] [place], [place] [address] Cult,Bloodon [id number],BloodSpecimen Description .BLOOD Special Requests L AC 20ML Culture POSITIVE Blood Culture CALLED TO MIS Medina [phone] DIRECT GRAM STAIN FROM BOTTLE: GRAM POSITIVE COCCI IN CLUSTERS METHICILLIN RESISTANT STAPHYLOCOCCUS AUREUS For susceptibility, refer to previous culture. Report Status FINAL 08/21/2018NoACMC Healthcare System GlenbeighComment on above:Performed By: #### ULAG #### [facility] [address] [place], [place] [id number] MRI FOOT LEFT W WO CONTRASTon [id number] FOOT LEFT W WO CONTRAST EXAMINATION: MRI [...] tarsal metatarsal joints can be seen with infection/osteomyelitis from a hematogenous source in the appropriate [...] Signed by: Murali Goff MD 08/21/18 Final resultNormalMercy Riverside Community HospitalMagnesiumon 08-21-2018 Magnesium mass conc2.4 mg/dLNormal1.6-2.6Mer[facility] Riverside Community HospitalComment on above:Performed By: #### ULAG #### [facility] [address] [place] [address] Procalcitoninon 22-21-8042Acwthlr mass conc0.27 ng/mLHigh<0.09Mer[facility] Riverside Community HospitalComment on above:Result Comment: Suspected Sepsis: 0.09-0.49 ng/mL Low likelihood [...] entered into the Change in Procalcitonin Calculator (www.jmodqw-qgr-rjlpcibdot.com) to determine the patient's Mortality Risk PrognosisPerformed By: #### ULAG #### [place] [address] [phone]-Hgcvzwjf Proteinon [id number] mass conc50.4 mg/LHigh0.0-5.0 [facility] Medical CenterComment on above:Performed By: #### LAOL, TROPI, PRCAL, MYCM #### [place] [address] CBC with Diffon 33-81-1488Jpw. Basophil0.08 k/uLNormal0.0-0.2MMemorial Medical CenterComment on above:Performed By: #### LALO, TROPI, PRCAL, MYCM #### [place] [address] Abs.Imm.Granulocyte0.42 k/uLHigh0.00-0.30[facility] Medical CenterComment on above:Performed By: #### LALO, TROPI, PRCAL, MYCM #### [place] [address] Abs.Neutrophil (Seg)4.57 k/uLNormal1.8-7.7[facility] Medical CenterComment on above:Performed By: #### LACREY, TROPI, PRCAL, MYCM #### [place] [address] Basophils/100 WBC (Bld)1 %Normal0-2MMemorial Medical Center Comment on above:Performed By: #### LALO, TROPI, PRCAL, MYCM #### [place] [address] Eosinophils #/vol (Bld)0.25 10*3/uLNormal0.0-0.4[facility] Medical CenterComment on above:Performed By: #### LACDS, TROPI, PRCAL, MYCM #### [facility] [address] [place] [address] Eosinophils/100 WBC (Bld)3 %Normal1-4[facility] Medical CenterComment on above:Performed By: #### LACDS, TROPI, PRCAL, MYCM #### [facility] [address] [place] [address] Immature granulocytes #/vol (Bld)5 %Dgrc7QdujuOhio State University Wexner Medical CenterComment on above:Performed By: #### LACDS, TROPI, PRCAL, MYCM #### [facility] [address] [place] [address]57 Lymphocytes #/vol (Bld)2.32 10*3/uLNormal1.0-4.8[facility] Medical CenterComment on above:Performed By: #### LACDS, TROPI, PRCAL, MYCM #### [facility] [address] [place] [address] Lymphocytes/100 WBC (Bld)28 %Oayorz79-39KgqngOhio State University Wexner Medical CenterComment on above:Performed By: #### LACDS, TROPI, PRCAL, MYCM #### [facility] [address] [place] [address] Monocytes #/vol (Bld)0.66 10*3/uLNormal0.1-0.8[facility] Medical CenterComment on above:Performed By: #### LACDS, TROPI, PRCAL, MYCM #### [facility] [address] [place] [address] Monocytes/100 WBC (Bld)8 %High1-7[facility] Comment on above:Performed By: #### LACDS, TROPI, PRCAL, MYCM #### [facility] [address] [place] [address] 21774 Morphology Interp Rehan (Bld)ANISOCYTOSIS PRESENTNormalOhio State University Wexner Medical CenterComment on above:Performed By: #### LACREY, TROPI, PRCAL, MYCM #### [facility] [address] [place] [address]505 Neutrophil (Seg)55 %Vrpszf97-26VwnhxOhio State University Wexner Medical Center Comment on above:Performed By: #### LACREY, TROPI, PRCAL, MYCM #### [facility] [address] [place] [address] 57206 Erythrocyte distribution width Ratio (RBC)14.6 %High11.8-14.4[facility] Medical CenterComment on above:Performed By: #### LALO, TROPI, PRCAL, MYCM #### [facility] [address] [place] [address] 15013 Hematocrit Volume Fraction (Bld)33.5 %Low36.3-47.1MMemorial Medical CenterComment on above:Performed By: #### LALO, TROPI, PRCAL, MYCM #### [facility] [address] [place] [address]14 Hemoglobin mass conc (Bld)10.2 g/dLLow11.9-15.1MMemorial Medical CenterComment on above:Performed By: #### LACDS, TROPI, PRCAL, MYCM #### [facility] [address] [place] [address] 87293 MCH Entitic mass (RBC)27.9 cdGbdpew11.2-33.5[facility] Medical CenterComment on above:Performed By: #### LACDS, TROPI, PRCAL, MYCM #### [facility] [address] [place] [address]308 MCHC mass conc (RBC)30.4 g/pZKrvmgu53.4-34.8[facility] Medical CenterComment on above:Performed By: #### LACDS, TROPI, PRCAL, MYCM #### [facility] [address] [place] [address] MCV Entitic volume (RBC)91.5 oLLgybnu21.6-102.9[facility] Medical CenterComment on above:Performed By: #### LACDS, TROPI, PRCAL, MYCM #### [facility] [address] [place] [address] NRBC Automated0.0 per 100 WBCNormal0.0[facility] Medical CenterComment on above:Performed By: #### LACDS, TROPI, PRCAL, MYCM #### [facility] [address] [place] [address] Platelet mean volume Entitic volume (Bld)11.0 fLNormal8.1-13.5[facility] Medical CenterComment on above:Performed By: #### LACDS, TROPI, PRCAL, MYCM #### [facility] [address] [place] [address] Platelets #/vol (Bld)211 10*3/zEEmoxbq554-432ZfutxOhio State University Wexner Medical CenterComment on above:Performed By: #### LACDS, TROPI, PRCAL, MYCM #### [place] [address] RBC #/vol (Bld)3.66 10*6/uLLow3.95-5.11[facility] Medical CenterComment on above:Performed By: #### LACDS, TROPI, PRCAL, MYCM #### [facility] [address] [place] [address] 21297 WBC #/vol (Bld)8.3 10*3/uLNormal3.5-11.3MMemorial Medical CenterComment on above:Performed By: #### LACDS, TROPI, PRCAL, MYCM #### [facility] [place] [address] Auto Diff PerformedNOT REPORTEDOhioHealth Shelby HospitalComment on above:Performed By: #### LACDS, TROPI, PRCAL, MYCM #### [facility] [address] [place] [address] 38571 Platelets #/vol (Bld)NOT REPORTEDOhioHealth Shelby HospitalComment on above:Performed By: #### LACDS, TROPI, PRCAL, MYCM #### [facility] [address] [place] [address] 16800 RBC morphology finding Nom (Bld)NOT REPORTEDOhioHealth Shelby HospitalComment on above:Performed By: #### LACDS, TROPI, PRCAL, MYCM #### [facility] [address] [place] [address] WBC MorphologyNOT REPORTEDOhioHealth Shelby Hospital Comment on above:Performed By: #### LACDS, TROPI, PRCAL, MYCM #### [facility] [address] [place] [address] Comp Metabolic Pr/rfx MGon 08-20-2018(cont.)Ohio[facility] Shelby HospitalComment on above:Result Comment: Average GFR for 30-39 years old: 107 mL/min/1.73sq m Chronic Kidney Disease: <60 mL/min/1.73sq m Kidney failure: <15 mL/min/1.73sq m eGFR calculated using average adult body mass. Additional eGFR calculator available at: http://www.Ryla.MogiMe/multiple_crcl_2012.htmPerformed By: #### LACDS, TROPI, PRCAL, MYCM #### [facility] [address] [place] [address] 21457 Albumin mass conc3.1 g/dLLow3.5-5.2[facility] Comment on above:Performed By: #### LACDS, TROPI, PRCAL, MYCM #### [facility] [address] [place] [address] Albumin/Globulin mass ratio0.9 {ratio}Low1.0-2.5[facility] Medical CenterComment on above:Performed By: #### LACDS, TROPI, PRCAL, MYCM #### [facility] [address] [place] [address] Alkaline Phos83 U/IDkfrfx33-100XbtxjOhio State University Wexner Medical Center Comment on above:Performed By: #### LACDS, TROPI, PRCAL, MYCM #### [facility] [address] [place] [address] 14419 ALT enzyme act/vol17 U/LNormal5-33[facility] Comment on above:Performed By: #### LACDS, TROPI, PRCAL, MYCM #### [facility] [address] [place] [address]267 Anion gap molar conc11 mmol/LNormal9-17[facility] Medical CenterComment on above:Performed By: #### LACDS, TROPI, PRCAL, MYCM #### [facility] [address] [place] [address] 07268 AST enzyme act/vol18 U/LNormal<32[facility] Comment on above:Performed By: #### LACDS, TROPI, PRCAL, MYCM #### [facility] [address] [place] [address] Bilirubin Ql (U)0.29 mg/dLLow0.3-1.2MMemorial Medical CenterComment on above:Performed By: #### LACDS, TROPI, PRCAL, MYCM #### [facility] [address] [place] [address]259 Calcium mass conc9.0 mg/dLNormal8.6-10.4[facility] CenterComment on above:Performed By: #### LACDS, TROPI, PRCAL, MYCM #### [facility] [address] [place] [address]64 Chloride molar krnd251 mmol/VUbhotr83-441QufnpOhio State University Wexner Medical CenterComment on above:Performed By: #### LACDS, TROPI, PRCAL, MYCM #### [facility] [address] [place] [address] 09083 CO2 molar conc27 mmol/VKvdagu68-15BcwlaOhio State University Wexner Medical Center Comment on above:Performed By: #### LACDS, TROPI, PRCAL, MYCM #### [facility] [address] [place] [address] 25988 Creatinine mass conc0.97 mg/dLHigh0.50-0.90[facility] CenterComment on above:Performed By: #### LACDS, TROPI, PRCAL, MYCM #### [facility] [address] [place] [address] 12225 GFR, Amer>60Normal>60[facility] Medical CenterComment on above:Performed By: #### LACDS, TROPI, PRCAL, MYCM #### [facility] [address] [place] [address] 7[address]84 GFR,non Amer>60Normal>60[facility] Comment on above:Performed By: #### LACDS, TROPI, PRCAL, MYCM #### [facility] [address] [place] [address]151 Glucose mass mzuf102 mg/mZRdxb59-19VedbyMemorial Medical Center Comment on above:Performed By: #### LACDS, TROPI, PRCAL, MYCM #### [facility] [address] [place] [address]498 Potassium molar conc4.4 mmol/LNormal3.7-5.3[facility] HospitalComment on above:Performed By: #### LACDS, TROPI, PRCAL, MYCM #### [facility] [address] [place] [address] 89803 Protein mass conc6.6 g/dLNormal6.4-8.3Mst. mary's medical center, [facility]ont[facility] campusy Riverside Community HospitalComment on above:Performed By: #### LACDS, TROPI, PRCAL, MYCM #### [facility] [address] [place] [address] Sodium molar znah510 mmol/PKxfpsf284-345KycdfOhio State University Wexner Medical CenterComment on above:Performed By: #### LACDS, TROPI, PRCAL, MYCM #### [facility] [address] [place] [address] Urea nitrogen mass conc15 mg/dLNormal6-20[facility] Medical CenterComment on above:Performed By: #### LACDS, TROPI, PRCAL, MYCM #### [address] [address] BUN/CRE RatioNOT REPORTEDBates County Memorial Hospitalal9-20[facility] Comment on above:Performed By: #### LACDS, TROPI, PRCAL, MYCM #### [facility] [address] [place] [address]32 Staging:NOT REPORTEDNormalOhio State University Wexner Medical CenterComment on above:Performed By: #### LACDS, TROPI, PRCAL, MYCM #### [facility] [address] [place] [address]18 Magnesiumon 74-69-2769Ssyerhyqr mass conc2.2 mg/dLNormal1.6-2.6 [facility] CenterComment on above:Performed By: #### LACDS, TROPI, PRCAL, MYCM #### [facility] [address] [place] [address]31 Sedimentation Rateon 67-65-5187Pkdbbspbvybdc Ylju948 mmHigh0-20 [facility] CenterComment on above:Performed By: #### GRACE MAY PRCAL, MARYCRUZM #### [facility] [address] [place] [address]2453 XR FOOT LEFT (MIN 3 VIEWS)on [id number] FOOT LEFT (MIN 3 VIEWS) EXAMINATION: 3 [...] Signed by: Andrey Angelo MD 08/20/18 Final resultNormalMerCommunity Regional Medical CenterCBC with Diffon [id number]. Basophil0.00 k/uLNormal0.0-0.2[facility] Community HospitalComment on above: Performed By: #### GRACE MAY PRCAL, JAZMYN #### [facility] [address] [place] [address]52 Abs.Imm.Granulocyte0.42 k/uLHigh0.00-0.30[facility] CenterComment on above:Performed By: #### GRACE MAY PRCAL, MYCM #### [facility] [address] [place] [address] Abs.Neutrophil (Seg)2.70 k/uLNormal1.8-7.7[facility] CenterComment on above:Performed By: #### GRACE MAY PRCAL, MYCM #### [facility] [address] [place] [address] 57483 Basophils/100 WBC (Bld)0 %Normal0-2[facility] Comment on above:Performed By: #### LACDS, TROPI, PRCAL, MYCM #### [facility] [address] [place] [address] 69407 Eosinophils #/vol (Bld)0.30 10*3/uLNormal0.0-0.4[facility] CenterComment on above:Performed By: #### LACDS, TROPI, PRCAL, MYCM #### [facility] [address] [place] [address]649 Eosinophils/100 WBC (Bld)5 %High1-4[facility] Comment on above:Performed By: #### LACDS, TROPI, PRCAL, MYCM #### [facility] [address] [place] [address]4059 Immature granulocytes #/vol (Bld)7 %Bfqv5SzkszOhio State University Wexner Medical CenterComment on above:Performed By: #### LACDS, TROPI, PRCAL, MYCM #### [address] [address] Lymphocytes #/vol (Bld)2.22 10*3/uLNormal1.0-4.8[facility] CenterComment on above:Performed By: #### LACDS, TROPI, PRCAL, MYCM #### [facility] [address] [place] [address] 71496 Lymphocytes/100 WBC (Bld)37 %Bywlnf82-78EbmdxOhio State University Wexner Medical CenterComment on above:Performed By: #### LACDS, TROPI, PRCAL, MYCM #### [facility] [address] [place] [address] 79763 Monocytes #/vol (Bld)0.36 10*3/uLNormal0.1-0.8[facility] CenterComment on above:Performed By: #### LACDS, TROPI, PRCAL, MYCM #### [facility] [address] [place] [address] 96239 Monocytes/100 WBC (Bld)6 %Normal1-7[facility] Comment on above:Performed By: #### LACDS, TROPI, PRCAL, MYCM #### [facility] [address] [place] [address] 19983 Morphology Interp Rehan (Bld)ANISOCYTOSIS PRESENTNormalOhio State University Wexner Medical CenterComment on above:Performed By: #### LACDS, TROPI, PRCAL, MYCM #### [facility] [address] [place] [address]5613 Neutrophil (Seg)45 %Plahsj85-06HgarnOhio State University [facility] Medical Center Comment on above:Performed By: #### LACDS, TROPI, PRCAL, MYCM #### [facility] [address] [place] [address] 81418 Erythrocyte distribution width Ratio (RBC)14.6 %High11.8-14.4[facility] Medical CenterComment on above:Performed By: #### LACDS, TROPI, PRCAL, MYCM #### [facility] [address] [place] [address] 56737 Hematocrit Volume Fraction (Bld)34.4 %Low36.3-47.1MMemorial Medical CenterComment on above:Performed By: #### LACDS, TROPI, PRCAL, MYCM #### [facility] [address] [place] [address] 52678 Hemoglobin mass conc (Bld)10.4 g/dLLow11.9-15.1MMemorial Medical CenterComment on above:Performed By: #### LACDS, TROPI, PRCAL, MYCM #### [facility] [address] [place] [address] 45151 MCH Entitic mass (RBC)28.0 aeMgkopt10.2-33.5[facility] CenterComment on above:Performed By: #### LACDS, TROPI, PRCAL, MYCM #### [facility] [address] [place] [address] 91815 MCHC mass conc (RBC)30.2 g/lFVxkjpo33.4-34.8[facility] CenterComment on above:Performed By: #### LACDS, TROPI, PRCAL, MYCM #### [facility] [address] [place] [address] 45196 MCV Entitic volume (RBC)92.7 pHTkkpok86.6-102.9[facility] CenterComment on above:Performed By: #### LACDS, TROPI, PRCAL, MYCM #### [facility] [address] [place] [address] NRBC Automated0.3 per 100 WBCHigh0.0[facility] CenterComment on above:Performed By: #### LACDS, TROPI, PRCAL, MYCM #### [facility] [address] [place] [address] 07707 Platelet mean volume Entitic volume (Bld)10.5 fLNormal8.1-13.5[facility] CenterComment on above:Performed By: #### LACDS, TROPI, PRCAL, MYCM #### [facility] [address] [place] [address] 01280 Platelets #/vol (Bld)168 10*3/pXMjufnt187-183VwsdpOhio State University Wexner Medical CenterComment on above:Performed By: #### LACDS, TROPI, PRCAL, MYCM #### [facility] [address] [place] [address] 21166 RBC #/vol (Bld)3.71 10*6/uLLow3.95-5.11[facility] CenterComment on above:Performed By: #### LACDS, TROPI, PRCAL, MYCM #### [facility] [address] [place] [address] 79974 WBC #/vol (Bld)6.0 10*3/uLNormal3.5-11.3[facility] HospitalComment on above:Performed By: #### LACDS, TROPI, PRCAL, MYCM #### [facility] [address] [place] [address] 83257 Auto Diff PerformedNOT REPORTEDOhioHealth Shelby HospitalComment on above:Performed By: #### LACDS, TROPI, PRCAL, MYCM #### [facility] [address] [place] [address] 53485 Platelets #/vol (Bld)NOT REPORTEDOhioHealth Shelby HospitalComment on above:Performed By: #### LACDS, TROPI, PRCAL, MYCM #### [facility] [address] [place] [address] 86625 RBC morphology finding Nom (Bld)NOT REPORTEDOhioHealth Shelby HospitalComment on above:Performed By: #### LACDS, TROPI, PRCAL, MYCM #### [facility] [address] [place] [address] 08900 WBC MorphologyNOT REPORTEDOhioHealth Shelby Hospital Comment on above:Performed By: #### LACDS, TROPI, PRCAL, MYCM #### [facility] [address] [place] [address] 79780 Comp Metabolic Pr/rfx MGon 08-19-2018(cont.)[facility] HospitalComment on above:Result Comment: Average GFR for 30-39 years old: 107 mL/min/1.73sq m Chronic Kidney Disease: <60 mL/min/1.73sq m Kidney failure: <15 mL/min/1.73sq m eGFR calculated using average adult body mass. Additional eGFR calculator available at: http://www.Ryla.com/multiple_crcl_2012.htmPerformed By: #### TERRYDS, TROPI, PRCAL, MYCM #### [facility] [address] [place] [address] 03699 Albumin mass conc2.7 g/dLLow3.5-5.2MMemorial Medical Center Comment on above:Performed By: #### LACDS, TROPI, PRCAL, MYCM #### [facility] [address] [place] [address] 41961 Albumin/Globulin mass ratio0.8 {ratio}Low1.0-2.5[facility] CenterComment on above:Performed By: #### LACDS, TROPI, PRCAL, MYCM #### [facility] [address] [place] [address] 38307 Alkaline Phos78 U/LEzporz76-617XayonOhio State University [facility] Medical Center Comment on above:Performed By: #### LACDS, TROPI, PRCAL, MYCM #### [facility] [address] [place] [address] 57573 ALT enzyme act/vol16 U/LNormal5-33[facility] Comment on above:Performed By: #### LACDS, TROPI, PRCAL, MYCM #### [facility] [address] [place] [address] 66150 Anion gap molar conc10 mmol/LNormal9-17[facility] CenterComment on above:Performed By: #### LACDS, TROPI, PRCAL, MYCM #### [facility] [address] [place] [address] 12715 AST enzyme act/vol16 U/LNormal<32[facility] Comment on above:Performed By: #### LACDS, TROPI, PRCAL, MYCM #### [facility] [address] [place] [address] 39170 Bilirubin Ql (U)0.21 mg/dLLow0.3-1.2MMemorial Medical CenterComment on above:Performed By: #### LACDS, TROPI, PRCAL, MYCM #### [facility] [address] [place] [address] 74243 Calcium mass conc8.5 mg/dLLow8.6-10.4[facility] CenterComment on above:Performed By: #### LACDS, TROPI, PRCAL, MYCM #### [facility] [address] [place] [address] 15171 Chloride molar rvwt771 mmol/GDqgkkr00-185OskusOhio State University Wexner Medical CenterComment on above:Performed By: #### LACDS, TROPI, PRCAL, MYCM #### [facility] [address] [place] [address] CO2 molar conc24 mmol/TGwlvat85-65AwkinOhio State University [facility] Comment on above:Performed By: #### LACDS, TROPI, PRCAL, MYCM #### [facility] [address] [place] [address] Creatinine mass conc0.88 mg/dLNormal0.50-0.90[facility] CenterComment on above:Performed By: #### LACDS, TROPI, PRCAL, MYCM #### [facility] [address] [place] [address] 92193 GFR, Amer>60Normal>60[facility] CenterComment on above:Performed By: #### LACDS, TROPI, PRCAL, MYCM #### [facility] [address] [place] [address] 28889 GFR,non Amer>60Normal>60[facility] Comment on above:Performed By: #### LACDS, TROPI, PRCAL, MYCM #### [facility] [address] [place] [address] 40568 Glucose mass ikbp118 mg/rIFbmm30-05BgbqwMemorial Medical Center Comment on above:Performed By: #### LACDS, TROPI, PRCAL, MYCM #### [facility] [address] [place] [address] 48132 Potassium molar conc4.0 mmol/LNormal3.7-5.3MMemorial Medical CenterComment on above:Performed By: #### LACDS, TROPI, PRCAL, MYCM #### [facility] [address] [place] [address] 14528 Protein mass conc6.3 g/dLLow6.4-8.3[facility]y [facility] Comment on above:Performed By: #### LACDS, TROPI, PRCAL, MYCM #### [facility] [address] [place] [address] 96669 Sodium molar wrns945 mmol/JQayatg180-055UxmpoOhio State University Wexner Medical CenterComment on above:Performed By: #### LACDS, TROPI, PRCAL, MYCM #### [facility] [address] [place] [address] 51390 Urea nitrogen mass conc16 mg/dLNormal6-20[facility] CenterComment on above:Performed By: #### LACDS, TROPI, PRCAL, MYCM #### [facility] [address] [place] [address] 35666 BUN/CRE RatioNOT REPORTEDNormal9-20[facility] Comment on above:Performed By: #### LACDS, TROPI, PRCAL, MYCM #### [facility] [address] [place] [address] 54238 Staging:NOT REPORTEDNormalOhio State University Wexner Medical CenterComment on above:Performed By: #### LACDS, TROPI, PRCAL, MYCM #### [facility] [address] [place] [address] Cult, Bloodon 65-93-9809Bqdb, BloodSpecimen Description .BLOOD Special Requests L HAND 6ML [...] NOT REPORTED Trimethoprim/Sulfa <=10 SUSCEPTIBLE Vancomycin 1 SUSCEPTIBLENormalMercy Riverside Community HospitalComment on above: Performed By: #### LACDS, TROPI, PRCAL, MYCM #### [facility] [address] [place] [address] MRI CERVICAL SPINE W WO CONTRASTon [id number] CERVICAL SPINE W WO CONTRASTEXAMINATION: MRI OF THE THORACIC SPINE WITHOUT AND [...] Signed by: Bo Rodrigues MD 08/19/18 Final resultNormalMercy Riverside Community HospitalMRI LUMBAR SPINE W WO CONTRAST on [id number] LUMBAR SPINE W WO CONTRASTEXAMINATION: MRI OF THE THORACIC SPINE WITHOUT AND [...] Signed by: Bo Rodrigues MD 08/19/18 Final resultNormalMercy Riverside Community HospitalMRI THORACIC SPINE W WO CONTRASTon [id number] THORACIC SPINE W WO CONTRASTEXAMINATION: MRI OF THE THORACIC SPINE WITHOUT AND [...] Signed by: Bo Rodrigues MD 08/19/18 Final resultNormalMercy Riverside Community HospitalMagnesiumon 08-19-2018 Magnesium mass conc2.3 mg/dLNormal1.6-2.6Mer[facility] Community HospitalComment on above:Performed By: #### LACDS, TROPI, PRCAL, MYCM #### [facility] [address] [place], [place] [id number] Procalcitoninon 33-96-0717Spudjli mass conc0.57 ng/mLHigh<0.09Mer[facility] Riverside Community HospitalComment on above:Result Comment: Suspected Sepsis: 0.09-0.49 ng/mL Low likelihood [...] entered into the Change in Procalcitonin Calculator (www.cklssw-pkl-tvcfnhpvuu.com) to determine the patient's Mortality Risk PrognosisPerformed By: #### LALO, TROPI, PRCAL, MYCM #### [place] [address] CBC with Diffon 77-66-2927Dis. Basophil<0.25Rjdkpb1.00-0.20[facility] CenterComment on above:Performed By: #### LALO, TROPI, PRCAL, MYCM #### [place] [address] Abs.Imm.Granulocyte0.28 k/uLNormal0.00-0.30[facility] CenterComment on above:Performed By: #### LALO, TROPI, PRCAL, MYCM #### [place] [address] Abs.Neutrophil (Seg)3.23 k/uLNormal1.50-8.10[facility] CenterComment on above:Performed By: #### LACREY, TROPI, PRCAL, MYCM #### [address] [address] Basophils/100 WBC (Bld)0 %Normal0-2[facility] Comment on above:Performed By: #### LACDS, TROPI, PRCAL, MYCM #### [address] [address] Eosinophils #/vol (Bld)0.15 10*3/uLNormal0.00-0.44[facility] CenterComment on above:Performed By: #### LACDS, TROPI, PRCAL, MYCM #### [address] [address] Eosinophils/100 WBC (Bld)3 %Normal1-4[facility] CenterComment on above:Performed By: #### LACDS, TROPI, PRCAL, MYCM #### [facility] [address] [place] [address] 26693 Erythrocyte distribution width Ratio (RBC)14.7 %High11.8-14.4[facility] CenterComment on above:Performed By: #### LACDS, TROPI, PRCAL, MYCM #### [facility] [address] [place] [address] 31568 Hematocrit Volume Fraction (Bld)32.7 %Low36.3-47.1MMemorial Medical CenterComment on above:Performed By: #### LACDS, TROPI, PRCAL, MYCM #### [facility] [address] [place] [address] 01355 Hemoglobin mass conc (Bld)10.1 g/dLLow11.9-15.1MMemorial Medical CenterComment on above:Performed By: #### LACDS, TROPI, PRCAL, MYCM #### [facility] [address] [place] [address] 89136 Immature granulocytes #/vol (Bld)5 %Fqug3SisibOhio State University [facility] Medical CenterComment on above:Performed By: #### LACDS, TROPI, PRCAL, MYCM #### [facility] [address] [place] [address] 81915 Lymphocytes #/vol (Bld)1.58 10*3/uLNormal1.10-3.70[facility] CenterComment on above:Performed By: #### LACDS, TROPI, PRCAL, MYCM #### [facility] [address] [place] [address] 63053 Lymphocytes/100 WBC (Bld)28 %Ogpgxg80-88JxqpaOhio State University Wexner Medical CenterComment on above:Performed By: #### LACDS, TROPI, PRCAL, MYCM #### [facility] [address] [place] [address] MC Entitic mass (RBC)28.2 pjMkoxwb65.2-33.5[facility] CenterComment on above:Performed By: #### LACDS, TROPI, PRCAL, MYCM #### [facility] [address] [place] [address] MCHC mass conc (RBC)30.9 g/cSMyrpdj75.4-34.8[facility] CenterComment on above:Performed By: #### LACDS, TROPI, PRCAL, MYCM #### [facility] [address] [place] [address] MC Entitic volume (RBC)91.3 hAWgiszd74.6-102.9[facility] CenterComment on above:Performed By: #### LACDS, TROPI, PRCAL, MYCM #### [facility] [address] [place] [address] Monocytes #/vol (Bld)0.47 10*3/uLNormal0.10-1.20[facility] CenterComment on above:Performed By: #### LACDS, TROPI, PRCAL, MYCM #### [facility] [address] [place] [address] Monocytes/100 WBC (Bld)8 %Normal3-12[facility] CenterComment on above:Performed By: #### LACDS, TROPI, PRCAL, MYCM #### [facility] [address] [place] [address] Neutrophil (Seg)56 %Bzwtqe07-69WeaduOhio State University [facility] Comment on above:Performed By: #### LACDS, TROPI, PRCAL, MYCM #### [facility] [address] [place] [address] 10527 NRBC Automated0.0 per 100 WBCNormal0.0[facility] CenterComment on above:Performed By: #### LACDS, TROPI, PRCAL, MYCM #### [facility] [address] [place] [address] 59881 Platelet mean volume Entitic volume (Bld)11.4 fLNormal8.1-13.5[facility] CenterComment on above:Performed By: #### LACDS, TROPI, PRCAL, MYCM #### [address] [address] Platelets #/vol (Bld)153 10*3/dNMlkmai362-783TnbqdOhio State University Wexner Medical CenterComment on above:Performed By: #### LACDS, TROPI, PRCAL, MYCM #### [address] [address] RBC #/vol (Bld)3.58 10*6/uLLow3.95-5.11[facility] CenterComment on above:Performed By: #### LACDS, TROPI, PRCAL, MYCM #### [facility] [address] [place] [address] 72822 RBC morphology finding Nom (Bld)ANISOCYTOSIS PRESENTNormalOhio State University Wex[facility] Medical CenterComment on above:Performed By: #### LACDS, TROPI, PRCAL, MYCM #### [address] [address] WBC #/vol (Bld)5.7 10*3/uLNormal3.5-11.3MMemorial Medical CenterComment on above:Performed By: #### LACDS, TROPI, PRCAL, MYCM #### [facility] [address] [place] [address] 53793 Auto Diff PerformedNOT REPORTEDNormalMercy Beaver Dam Medical CenterComment on above:Performed By: #### LACDS, TROPI, PRCAL, MYCM #### [facility] [address] [place] [address] 64494 Platelets #/vol (Bld)NOT REPORTEDOhioHealth Shelby HospitalComment on above:Performed By: #### LACREY, TROPI, PRCAL, MYCM #### [facility] [address] [place] [address] WBC MorphologyNOT REPORTEDOhioHealth Shelby Hospital Comment on above:Performed By: #### LALO, TROPI, PRCAL, MYCM #### [facility] [address] [place] [address] Comp Metabolic Pr/rfx MGon 08-18-2018(cont.)NormalOhio State University Wexner Medical CenterComment on above:Result Comment: Average GFR for 30-39 years old: 107 mL/min/1.73sq m Chronic Kidney Disease: <60 mL/min/1.73sq m Kidney failure: <15 mL/min/1.73sq m eGFR calculated using average adult body mass. Additional eGFR calculator available at: http://www.[employer]/multiple_crcl_2012.htmPerformed By: #### LACREY, TROPI, PRCAL, MYCM #### [facility] [address] [place] [address] 01112 Albumin mass conc2.7 g/dLLow3.5-5.2[facility] Comment on above:Performed By: #### LACDS, TROPI, PRCAL, MYCM #### [facility] [address] [place] [address] 27970 Albumin/Globulin mass ratio0.8 {ratio}Low1.0-2.5[facility] CenterComment on above:Performed By: #### LACDS, TROPI, PRCAL, MYCM #### [facility] [address] [place] [address] 14945 Alkaline Phos82 U/YJbowrv71-203VmdoiOhio State University [facility] Comment on above:Performed By: #### LACDS, TROPI, PRCAL, MYCM #### [facility] [address] [place] [address] 80897 ALT enzyme act/vol19 U/LNormal5-33[facility] Comment on above:Performed By: #### LACDS, TROPI, PRCAL, MYCM #### [facility] [address] [place] [address] 12852 Anion gap molar conc8 mmol/LLow9-17[facility] Comment on above:Performed By: #### LACDS, TROPI, PRCAL, MYCM #### [facility] [address] [place] [address] 02452 AST enzyme act/vol17 U/LNormal<32[facility] Comment on above:Performed By: #### LACDS, TROPI, PRCAL, MYCM #### [facility] [address] [place] [address] 03262 Bilirubin Ql (U)0.24 mg/dLLow0.3-1.2MMemorial Medical CenterComment on above:Performed By: #### LACDS, TROPI, PRCAL, MYCM #### [facility] [address] [place] [address] 30618 Calcium mass conc8.2 mg/dLLow8.6-10.4[facility] CenterComment on above:Performed By: #### LACDS, TROPI, PRCAL, MYCM #### [facility] [address] [place] [address] 08112 Chloride molar nemu153 mmol/UQwgoaj51-938VqkbaOhio State University Wexner Medical CenterComment on above:Performed By: #### LACDS, TROPI, PRCAL, MYCM #### [facility] [address] [place] [address] 14237 CO2 molar conc25 mmol/ANewipx60-39QgobiOhio State University [facility] Comment on above:Performed By: #### LACDS, TROPI, PRCAL, MYCM #### [facility] [address] [place] [address] 57431 Creatinine mass conc0.94 mg/dLHigh0.50-0.90[facility] CenterComment on above:Performed By: #### LACDS, TROPI, PRCAL, MYCM #### [facility] [address] [place] [address] 29228 GFR, Amer>60Normal>60[facility] CenterComment on above:Performed By: #### LACDS, TROPI, PRCAL, MYCM #### [facility] [address] [place] [address] 27047 GFR,non Amer>60Normal>60[facility] Comment on above:Performed By: #### LACDS, TROPI, PRCAL, MYCM #### [facility] [address] [place] [address] 89040 Glucose mass vnyw564 mg/vIZsdo56-61ZzogfMemorial Medical Center Comment on above:Performed By: #### LACDS, TROPI, PRCAL, MYCM #### [facility] [address] [place] [address] 31574 Potassium molar conc4.1 mmol/LNormal3.7-5.3Mst. [facility]y [facility] HospitalComment on above:Performed By: #### LACDS, TROPI, PRCAL, MYCM #### [facility] [address] [place] [address] 06845 Protein mass conc6.2 g/dLLow6.4-8.3Mst. [facility]y [facility] Comment on above:Performed By: #### LACDS, TROPI, PRCAL, MYCM #### [facility] [address] [place] [address] 86014 Sodium molar ftzd581 mmol/HKoiiwg336-686LpewcOhio State University Wexner Medical CenterComment on above:Performed By: #### LACDS, TROPI, PRCAL, MYCM #### [facility] [address] [place] [address] 56770 Urea nitrogen mass conc14 mg/dLNormal6-20[facility] CenterComment on above:Performed By: #### LACDS, TROPI, PRCAL, MYCM #### [facility] [address] [place] [address] 06782 BUN/CRE RatioNOT REPORTEDNoformerly [facility]920[facility] Comment on above:Performed By: #### LACDS, TROPI, PRCAL, MYCM #### [facility] [address] [place] [address] 37179 Staging:NOT REPORTEDNormalOhio State University Wexner Medical CenterComment on above:Performed By: #### LACDS, TROPI, PRCAL, MYCM #### [facility] [address] [place] [address] 38945 Magnesiumon 57-20-9595Oealrejft mass conc2.3 mg/dLNormal1.6-2.6 [facility] CenterComment on above:Performed By: #### LACDS, TROPI, PRCAL, MYCM #### [facility] [address] [place] [address] 36577 Vancomycin Troughon 86-56-5577Bdcjbzoxgg Xgajjn31.7 ug/mLNormal 10.0-20.0[facility] CenterComment on above:Result Comment: Higher trough serum vancomycin concentrations of 15-20 ug/mL are recommended for complicated infections such as bacteremia, endocarditis, osteomyelitis, meningitis, and hospital acquired pneumonia.Performed By: #### LACDS, TROPI, PRCAL, MYCM #### [facility] [address] [place] [address] 91723 Date last dose,NOT REPORTEDNormalOhio [facility] Comment on above:Performed By: #### DAMIEN MAYI, PRCAL, MYCM #### [facility] [address] [place] [address] 20186 Dose amount,NOT REPORTEDNormalOhio [facility] University [facility] Comment on above:Performed By: #### DAMIEN MAYI, PRCAL, MYCM #### [facility] [address] [place] [address] 99349 Time last dose,NOT REPORTEDNormalOhio [facility] Comment on above:Performed By: #### DAMIEN MAYI, PRCAL, MYCM #### [facility] [address] [place] [address] 38167 [phone]-Qntyoouu Proteinon 10-72-1594CKX mass xbiy941.1 mg/LHigh0.0-5.0 [facility] CenterComment on above:Performed By: #### GRACE MAY, PRCAL, MYCM #### [facility] [address] [place] [address] 45707 CBC with Diffon 47-93-1596Pkw. Basophil0.00 k/uLNormal0.0-0.2MMemorial Medical CenterComment on above:Performed By: #### DAMIEN MAYI, PRCAL, MYCM #### [facility] [address] [place] [address] 93853 Abs.Imm.Granulocyte0.13 k/uLNormal0.00-0.30[facility] CenterComment on above:Performed By: #### LALO TROPI, PRCAL, MYCM #### [facility] [address] [place] [address] 56885 Abs.Neutrophil (Seg)4.35 k/uLNormal1.8-7.7[facility] CenterComment on above:Performed By: #### LACDS, TROPI, PRCAL, MYCM #### [address] [address] Basophils/100 WBC (Bld)0 %Normal0-2MMemorial Medical Center Comment on above:Performed By: #### LACDS, TROPI, PRCAL, MYCM #### [address] [address] Eosinophils #/vol (Bld)0.06 10*3/uLNormal0.0-0.4[facility] CenterComment on above:Performed By: #### LACDS, TROPI, PRCAL, MYCM #### [address] [address] Eosinophils/100 WBC (Bld)1 %Normal1-4[facility] CenterComment on above:Performed By: #### LACDS, TROPI, PRCAL, MYCM #### [address] [address] Immature granulocytes #/vol (Bld)2 %Abzv7DpfobOhio State University Wexner Medical CenterComment on above:Performed By: #### LACDS, TROPI, PRCAL, MYCM #### [address] [address] Lymphocytes #/vol (Bld)1.32 10*3/uLNormal1.0-4.8[facility] CenterComment on above:Performed By: #### LACDS, TROPI, PRCAL, MYCM #### [address] [address] Lymphocytes/100 WBC (Bld)21 %Lij56-77IkfdxOhio State University Wexner Medical CenterComment on above:Performed By: #### LACDS, TROPI, PRCAL, MYCM #### [address] [place] [address] Monocytes #/vol (Bld)0.44 10*3/uLNormal0.1-0.8[facility] CenterComment on above:Performed By: #### LACDS, TROPI, PRCAL, MYCM #### [facility] [address] [place] [address] 38542 Monocytes/100 WBC (Bld)7 %Normal1-7[facility] Comment on above:Performed By: #### LACDS, TROPI, PRCAL, MYCM #### [facility] [address] [place] [address] 94805 Morphology Interp Rehan (Bld)ANISOCYTOSIS PRESENTNormalOhio State University Wexner Medical CenterComment on above:Result Comment: INCREASED BANDS PRESENT 1+ TEARDROPSPerformed By: #### LACDS, TROPI, PRCAL, MYCM #### [facility] [address] [place] [address] 43875 Neutrophil (Seg)69 %Ctsq69-89OuaziOhio State University [facility] Comment on above:Performed By: #### LACDS, TROPI, PRCAL, MYCM #### [facility] [address] [place] [address] 96679 Erythrocyte distribution width Ratio (RBC)14.8 %High11.8-14.4[facility] CenterComment on above:Performed By: #### LACDS, TROPI, PRCAL, MYCM #### [facility] [address] [place] [address] 28869 Hematocrit Volume Fraction (Bld)33.3 %Low36.3-47.1MMemorial Medical CenterComment on above:Performed By: #### LACDS, TROPI, PRCAL, MYCM #### [facility] [address] [place] [address] 59113 Hemoglobin mass conc (Bld)10.2 g/dLLow11.9-15.1MMemorial Medical CenterComment on above:Performed By: #### LACREY, TROPI, PRCAL, MYCM #### [facility] [address] [place] [address] 24989 MCH Entitic mass (RBC)28.3 ogYclhzh93.2-33.5[facility] CenterComment on above:Performed By: #### LACREY, TROPI, PRCAL, MYCM #### [facility] [address] [place] [address] 54809 MCHC mass conc (RBC)30.6 g/pZKxtyox80.4-34.8[facility] CenterComment on above:Performed By: #### LALO, TROPI, PRCAL, MYCM #### [facility] [address] [place] [address] MCV Entitic volume (RBC)92.2 vZTuwxqs15.6-102.9[facility] CenterComment on above:Performed By: #### LACREY, TROPI, PRCAL, MYCM #### [facility] [address] [place] [address] NRBC Automated0.0 per 100 WBCNormal0.0[facility] CenterComment on above:Performed By: #### LACREY, TROPI, PRCAL, MYCM #### [facility] [address] [place] [address] Platelet mean volume Entitic volume (Bld)11.5 fLNormal8.1-13.5[facility] CenterComment on above:Performed By: #### LACDS, TROPI, PRCAL, MYCM #### [facility] [address] [place] [address] Platelets #/vol (Bld)149 10*3/eWMrvttn909-287DlsloOhio State University Wexner Medical CenterComment on above:Performed By: #### LACDS, TROPI, PRCAL, MYCM #### [facility] [address] [place] [address] 20977 RBC #/vol (Bld)3.61 10*6/uLLow3.95-5.11[facility] HospitalComment on above:Performed By: #### LACDS, TROPI, PRCAL, MYCM #### [facility] [address] [place] [address] 22795 WBC #/vol (Bld)6.3 10*3/uLNormal3.5-11.3[facility] HospitalComment on above:Performed By: #### LACDS, TROPI, PRCAL, MYCM #### [facility] [address] [place] [address] 20595 Auto Diff PerformedNOT REPORTEDOhioHealth Shelby HospitalComment on above:Performed By: #### LACDS, TROPI, PRCAL, MYCM #### [facility] [address] [place] [address] 14773 Platelets #/vol (Bld)NOT REPORTEDOhioHealth Shelby HospitalComment on above:Performed By: #### LACDS, TROPI, PRCAL, MYCM #### [facility] [address] [place] [address] 87254 RBC morphology finding Nom (Bld)NOT REPORTEDNoACMC Healthcare System GlenbeighComment on above:Performed By: #### LACDS, TROPI, PRCAL, MYCM #### [facility] [address] [place] [address] 41246 WBC MorphologyNOT REPORTEDOhioHealth Shelby Hospital Comment on above:Performed By: #### LACDS, TROPI, PRCAL, MYCM #### [facility] [address] [place] [address] 68546 Comp Metabolic Pr/rfx MGon 08-17-2018(cont.)NormalOhio State University Wexner Medical CenterComment on above:Result Comment: Average GFR for 30-39 years old: 107 mL/min/1.73sq m Chronic Kidney Disease: <60 mL/min/1.73sq m Kidney failure: <15 mL/min/1.73sq m eGFR calculated using average adult body mass. Additional eGFR calculator available at: http://www.[employer]/multiple_crcl_2012.htmPerformed By: #### LACDS, TROPI, PRCAL, MYCM #### [facility] [address] [place] [address] 08917 Albumin mass conc2.4 g/dLLow3.5-5.2MMemorial Medical Center Comment on above:Performed By: #### LACDS, TROPI, PRCAL, MYCM #### [facility] [address] [place] [address] 54953 Albumin/Globulin mass ratio0.7 {ratio}Low1.0-2.5[facility] CenterComment on above:Performed By: #### LACDS, TROPI, PRCAL, MYCM #### [facility] [address] [place] [address] 21782 Alkaline Phos76 U/RSkyioa89-661DqgjsOhio State University [facility] Comment on above:Performed By: #### LACDS, TROPI, PRCAL, MYCM #### [facility] [address] [place] [address] 59597 ALT enzyme act/vol25 U/LNormal5-33[facility] Comment on above:Performed By: #### LACDS, TROPI, PRCAL, MYCM #### [facility] [address] [place] [address] Anion gap molar conc8 mmol/LLow9-17[facility] Comment on above:Performed By: #### LACDS, TROPI, PRCAL, MYCM #### [employer] [address] [place] [address] [place] [address] AST enzyme act/vol26 U/LNormal<32Mer[facility] Comment on above:Performed By: #### LACDS, TROPI, PRCAL, MYCM #### [facility] [address] [place] [address] Bilirubin Ql (U)0.34 mg/dLNormal0.3-1.2[facility] HospitalComment on above:Performed By: #### LACDS, TROPI, PRCAL, MYCM #### [facility] [address] [place] [address] Calcium mass conc7.8 mg/dLLow8.6-10.4[facility] CenterComment on above:Performed By: #### LACDS, TROPI, PRCAL, MYCM #### [facility] [address] [place] [address] Chloride molar conc99 mmol/CUcoazn51-481FarcxCommunity Regional Medical CenterComment on above:Performed By: #### LACDS, TROPI, PRCAL, MYCM #### [facility] [address] [place] [address] 11751 CO2 molar conc23 mmol/VXpsjld20-86LpimkOhio State University Wexner Medical Center Comment on above:Performed By: #### LACDS, TROPI, PRCAL, MYCM #### [facility] [address] [place] [address] 31266 Creatinine mass conc1.04 mg/dLHigh0.50-0.90MerCommunity Regional Medical CenterComment on above:Performed By: #### LACDS, TROPI, PRCAL, MYCM #### [facility] [address] [place] [address] GFR, Amer>60Normal>60MerCommunity Regional Medical CenterComment on above:Performed By: #### LACDS, TROPI, PRCAL, MYCM #### [facility] [address] [place] [address] 93827 GFR,non Amer59 mL/minLow>60[facility] Comment on above:Performed By: #### LACREY, TROPI, PRCAL, MYCM #### [facility] [address] [place] [address] 76717 Glucose mass jqan856 mg/lGVojg28-39AzwfcMemorial Medical Center Comment on above:Performed By: #### LACDS, TROPI, PRCAL, MYCM #### [address] [address] Potassium molar conc3.8 mmol/LNormal3.7-5.3MMemorial Medical CenterComment on above:Performed By: #### LACREY, TROPI, PRCAL, MYCM #### [address] [address] Protein mass conc5.8 g/dLLow6.4-8.3MMemorial Medical Center Comment on above:Performed By: #### LACDS, TROPI, PRCAL, MYCM #### [address] [address] Sodium molar ijst588 mmol/GLvo306-923FemdgOhio State University Wexner Medical CenterComment on above:Performed By: #### LACDS, TROPI, PRCAL, MYCM #### [facility] [address] [place] [address] 84336 Urea nitrogen mass conc15 mg/dLNormal6-20[facility] CenterComment on above:Performed By: #### LACDS, TROPI, PRCAL, MYCM #### [place] [address] BUN/CRE RatioNOT REPORTEDNormal9-20[facility] Comment on above:Performed By: #### LACDS, TROPI, PRCAL, MYCM #### [facility] [address] [place] [address] Staging:NOT REPORTEDNormalOhio State University Wexner Medical CenterComment on above:Performed By: #### DAMIEN MAYI, PRCAL, MYCM #### [facility] [address] [place] [address]23 Magnesiumon 71-06-0081Eeidjdldb mass conc2.2 mg/dLNormal1.6-2.6 [facility] CenterComment on above:Performed By: #### LALO, DAMIENI, PRCAL, MYCM #### [facility] [address] [place] [address] Procalcitoninon 30-73-7444Utwfcxi mass conc1.48 ng/mLHigh<0.09[facility] Medical CenterComment on above:Result Comment: Suspected Sepsis: 0.09-0.49 ng/mL Low likelihood [...] entered into the Change in Procalcitonin Calculator (www.ynzbwt-gzl-nsylcecwnm.com) to determine the patient's Mortality Risk PrognosisPerformed By: #### GRACE MAY, PRCAL, MYCM #### [facility] [address] [place] [address]076 Sedimentation Rateon 29-22-6274Jcdjqluhmxsxa Rate97 mmHigh0-20[facility] CenterComment on above:Performed By: #### DAMIEN MAYI, PRCAL, MYCM #### [facility] [address] [place] [address] CBC with Diffon 88-41-9284Qyx. Basophil0.00 k/uLNormal0.00-0.20 [facility] CenterComment on above:Performed By: #### LACDS, TROPI, PRCAL, MYCM #### [facility] [address] [place] [address] Abs.Imm.Granulocyte0.11 k/uLNormal0.00-0.30[facility] CenterComment on above:Performed By: #### LACDS, TROPI, PRCAL, MYCM #### [facility] [address] [place] [address] Abs.Neutrophil (Seg)4.60 k/uLNormal1.50-8.10[facility] CenterComment on above:Performed By: #### LACDS, TROPI, PRCAL, MYCM #### [facility] [address] [place] [address] Basophils/100 WBC (Bld)0 %Normal0-2MMemorial Medical Center Comment on above:Performed By: #### LACDS, TROPI, PRCAL, MYCM #### [address] [address] Eosinophils #/vol (Bld)0.00 10*3/uLNormal0.00-0.44[facility] CenterComment on above:Performed By: #### LACDS, TROPI, PRCAL, MYCM #### [facility] [address] [place] [address] 78379 Eosinophils/100 WBC (Bld)0 %Low1-4[facility] Comment on above:Performed By: #### LACDS, TROPI, PRCAL, MYCM #### [facility] [address] [place] [address] 98066 Immature granulocytes #/vol (Bld)2 %Seqr4YnkrcOhio State University Wexner Medical CenterComment on above:Performed By: #### LACDS, TROPI, PRCAL, MYCM #### [facility] [address] [place] [address] Lymphocytes #/vol (Bld)0.67 10*3/uLLow1.10-3.70[facility] CenterComment on above:Performed By: #### LACDS, TROPI, PRCAL, MYCM #### [facility] [address] [place] [address]79 Lymphocytes/100 WBC (Bld)12 %Ycu11-79WqtlwOhio State University Wexner Medical CenterComment on above:Performed By: #### LACDS, TROPI, PRCAL, MYCM #### [facility] [address] [place] [address] 71336 Monocytes #/vol (Bld)0.22 10*3/uLNormal0.10-1.20[facility] CenterComment on above:Performed By: #### LACDS, TROPI, PRCAL, MYCM #### [facility] [address] [place] [address] 03853 Monocytes/100 WBC (Bld)4 %Normal3-12[facility] CenterComment on above:Performed By: #### LACDS, TROPI, PRCAL, MYCM #### [facility] [address] [place] [address] 6[address]66 Morphology Interp Rehan (Bld)ANISOCYTOSIS PRESENTNormalOhio State University Wexner Medical CenterComment on above:Result Comment: INCREASED BANDS PRESENT 1+ TEARDROPSPerformed By: #### LACDS, TROPI, PRCAL, MYCM #### [address] [address] Neutrophil (Seg)82 %Xhiz76-03QafygOhio State University Wexner Medical Center Comment on above:Performed By: #### LACDS, TROPI, PRCAL, MYCM #### [facility] [address] [place] [address] Erythrocyte distribution width Ratio (RBC)15.1 %High11.8-14.4[facility] CenterComment on above:Performed By: #### LACDS, TROPI, PRCAL, MYCM #### [facility] [address] [place] [address] Hematocrit Volume Fraction (Bld)34.1 %Low36.3-47.1MMemorial Medical CenterComment on above:Performed By: #### LACREY, TROPI, PRCAL, MYCM #### [facility] [address] [place] [address] Hemoglobin mass conc (Bld)10.0 g/dLLow11.9-15.1MMemorial Medical CenterComment on above:Performed By: #### LACDS, TROPI, PRCAL, MYCM #### [address] [address] MCH Entitic mass (RBC)28.7 kdSvylqy92.2-33.5[facility] CenterComment on above:Performed By: #### LACDS, TROPI, PRCAL, MYCM #### [facility] [address] [place] [address] 37201 MCHC mass conc (RBC)29.3 g/zEDxjvvc26.4-34.8[facility] CenterComment on above:Performed By: #### LACDS, TROPI, PRCAL, MYCM #### [facility] [address] [place] [address] 81726 MCV Entitic volume (RBC)98.0 iZEvcrfc02.6-102.9[facility] CenterComment on above:Performed By: #### LACDS, TROPI, PRCAL, MYCM #### [facility] [address] [place] [address]977 NRBC Automated0.0 per 100 WBCNormal0.0[facility] CenterComment on above:Performed By: #### LACDS, TROPI, PRCAL, MYCM #### [facility] [address] [place] [address] 92560 Platelet mean volume Entitic volume (Bld)11.1 fLNormal8.1-13.5[facility] CenterComment on above:Performed By: #### LACDS, TROPI, PRCAL, MYCM #### [facility] [address] [place] [address] 10582 Platelets #/vol (Bld)119 10*3/rOPzo801-346LpjywOhio State University Wexner Medical CenterComment on above:Performed By: #### LACDS, TROPI, PRCAL, MYCM #### [facility] [address] [place] [address] 32734 RBC #/vol (Bld)3.48 10*6/uLLow3.95-5.11[facility] CenterComment on above:Performed By: #### LACDS, TROPI, PRCAL, MYCM #### [facility] [address] [place] [address] WBC #/vol (Bld)5.6 10*3/uLNormal3.5-11.3MMemorial Medical CenterComment on above:Performed By: #### LACDS, TROPI, PRCAL, MYCM #### [employer] [address] [place] [address] 39305 Auto Diff PerformedNOT REPORTEDBates County Memorial HospitalalOhio State University Wexner Medical CenterComment on above:Performed By: #### LACDS, TROPI, PRCAL, MYCM #### [facility] [address] [place] [address] 43676 Platelets #/vol (Bld)NOT REPORTEDNormChillicothe HospitalComment on above:Performed By: #### LACREY, TROPI, PRCAL, MYCM #### [facility] [address] [place] [address] RBC morphology finding Nom (Bld)NOT REPORTEDNormChillicothe HospitalComment on above:Performed By: #### LACDS, TROPI, PRCAL, MYCM #### [facility] [address] [place] [address] WBC MorphologyNOT REPORTEDNoACMC Healthcare System Glenbe[facility] Comment on above:Performed By: #### LACREY, TROPI, PRCAL, MYCM #### [facility] [address] [place] [address] CT HEAD WO CONTRASTon 35-25-0025KE HEAD WO CONTRASTEXAMINATION: CT OF THE HEAD WITHOUT CONTRAST 08/16/2018 [...] Signed by: Erica Angeles MD 08/16/18 Final resultNormalOhio State University Wexner Medical CenterCalcium, Ionicon 08-16-2018 Calcium mass conc0.99 mmol/LLow1.13-1.33MerCommunity Regional Medical CenterComment on above:Performed By: #### LACDS, TROPI, PRCAL, MYCM #### [facility] [address] [place] [address] Comp Metabolic Pr/rfx MGon 08-16-2018(cont.)NormalOhio State University Wexner Medical CenterComment on above:Result Comment: Average GFR for 30-39 years old: 107 mL/min/1.73sq m Chronic Kidney Disease: <60 mL/min/1.73sq m Kidney failure: <15 mL/min/1.73sq m eGFR calculated using average adult body mass. Additional eGFR calculator available at: http://www.[employer]/multiple_crcl_2012.htmPerformed By: #### PT, CMPX, MG, CDP #### [facility] [address] [place] [address] Albumin mass conc2.3 g/dLLow3.5-5.2MMemorial Medical Center Comment on above:Performed By: #### PT, CMPX, MG, CDP #### [facility] [place] [address] Albumin/Globulin mass ratio0.7 {ratio}Low1.0-2.5[facility] Medical CenterComment on above:Performed By: #### PT, CMPX, MG, CDP #### [facility] [place] [address] Alkaline Phos67 U/GHbggbk10-393KvzsuOhio State University Wexner Medical Center Comment on above:Performed By: #### PT, CMPX, MG, CDP #### [facility] [address] [place] [address] ALT enzyme act/vol33 U/LNormal5-33[facility] Comment on above:Performed By: #### PT, CMPX, MG, CDP #### [facility] [place] [address] Anion gap molar conc11 mmol/LNormal9-17[facility] CenterComment on above:Performed By: #### PT, CMPX, MG, CDP #### [facility] [address] [place] [address] 70251 AST enzyme act/vol41 U/LHigh<32[facility] Comment on above:Performed By: #### PT, CMPX, MG, CDP #### [facility] [address] [place] [address]100 Bilirubin Ql (U)0.40 mg/dLNormal0.3-1.2MMemorial Medical CenterComment on above:Performed By: #### PT, CMPX, MG, CDP #### [facility] [address] [place] [address] 18663 Calcium mass conc7.3 mg/dLLow8.6-10.4[facility] CenterComment on above:Performed By: #### PT, CMPX, MG, CDP #### [employer] [address] [place] [address] 39890 Chloride molar vyzl938 mmol/VBionab50-646PbogcOhio State University Wexner Medical CenterComment on above:Performed By: #### PT, CMPX, MG, CDP #### [facility] [address] [place] [address] 05554 CO2 molar conc18 mmol/EFco66-86JgrswOhio State University Wexner Medical Center Comment on above:Performed By: #### PT, CMPX, MG, CDP #### [facility] [address] [place] [address] 69784 Creatinine mass conc1.09 mg/dLHigh0.50-0.90[facility] CenterComment on above:Performed By: #### PT, CMPX, MG, CDP #### [employer] [address] [place] [address] 71171 GFR, Amer>60Normal>60MerCommunity Regional Medical CenterComment on above:Performed By: #### PT, CMPX, MG, CDP #### [facility] [address] [place] [address] GFR,non Amer56 mL/minLow>60[facility] Comment on above:Performed By: #### PT, CMPX, MG, CDP #### [facility] [address] [place] [address]7716 Glucose mass hobq525 mg/qESzbp08-46ZdrjeMemorial Medical Center Comment on above:Performed By: #### PT, CMPX, MG, CDP #### [facility] [address] [place] [address]27 Potassium molar conc3.6 mmol/LLow3.7-5.3MMemorial Medical CenterComment on above:Performed By: #### PT, CMPX, MG, CDP #### [facility] [address] [place] [address] 58653 Protein mass conc5.5 g/dLLow6.4-8.3MMemorial Medical Center Comment on above:Performed By: #### PT, CMPX, MG, CDP #### [facility] [address] [place] [address]345 Sodium molar dmzt144 mmol/VLej855-092GfncwOhio State University Wexner Medical CenterComment on above:Performed By: #### PT, CMPX, MG, CDP #### [facility] [address] [place] [address] 48196 Urea nitrogen mass conc17 mg/dLNormal6-20[facility] CenterComment on above:Performed By: #### PT, CMPX, MG, CDP #### [facility] [address] [place] [address] 82942 BUN/CRE RatioNOT REPORTEDNormal9-20[facility] Comment on above:Performed By: #### PT, CMPX, MG, CDP #### [address] [address] Staging:NOT REPORTEDNormalOhio State University Wexner Medical CenterComment on above:Performed By: #### PT, CMPX, MG, CDP #### [address] [address] Lactic Acid,Whole Blon 16-94-1995Yegphx Acid,Whole Bl1.2 mmol/L Normal0.7-2.1MMemorial Medical CenterComment on above:Performed By: #### LACDS, TROPI, PRCAL, MYCM #### [address] [address] Lactic Acid,Whole Bl1.2 mmol/LNormal0.7-2.1MMemorial Medical CenterComment on above:Performed By: #### LACWB #### [address] [address] Magnesiumon 50-17-2965Osfmyexwf mass conc2.0 mg/dLNormal1.6-2.6 [facility] CenterComment on above:Performed By: #### LACDS, TROPI, PRCAL, MYCM #### [address] [address] Mycoplasma Ab,IgMon 75-75-9176Pmgsyivple Ab,IgM0.22Normal<0.91[facility] CenterComment on above:Result Comment: Reference Range: <=0.90 Negative 0.91-1.09 Equivocal >=1.10 PositivePerformed By: #### LACDS, TROPI, PRCAL, MYCM #### [address] [address] PTon 08-36-1383EMH Coag RelTime (PPP)1.0 {INR}NormalOhio State University Wexner Medical CenterComment on above:Result Comment: Therapeutic Range: Moderate Anticoagulant Intensity: INR = 2.0-3.0 High Anticoagulant Intensity: INR = 2.5-3.5Performed By: #### PT, CMPX, MG, CDP #### [facility] [address] [place] [address] [phone] Prothrombin time (PT) Coag time (PPP)11.0 sNormal9.0-12.0[facility] CenterComment on above:Performed By: #### PT, CMPX, MG, CDP #### [facility] [address] [place] [address]69 Troponinon 48-98-9685Ufoprqqu I.cardiac mass concNormalMerCommunity Regional Medical CenterComment on above:Result Comment: Reference Range: <0.03 Within reference range. 0.03-0.09 Possible myocardial damage. Repeat at appropriate intervals to rule out chronic elevation. >= 0.10 Indicative of myocardial damage. Patients with high levels of Biotin oral intake (i.e >5mg/day) may have falsely decreased Troponin T levels. Samples collected within 8 hours of biotin intake may require additional information for diagnosis.Performed By: #### TROPI #### [address] [id number] Troponin I.cardiac mass concng/mLNormal<0.03[facility] CenterComment on above:Result Comment: Troponin T results cannot be compared to Troponin-I results.Performed By: #### TROPI #### [place] [address] XR CHEST (2 VW)on 11-23-6419SM CHEST (2 VW)EXAMINATION: TWO VIEWS OF THE CHEST 08/16/2018 8:35 [...] Signed by: Noe Mitchell MD 08/16/18 Final resultNormalOhio State University Wexner Medical CenterLactate, Sepsison 08-15-2018 Lactic Acid,Sep Wbld3.5 mmol/LHigh0.5-1.9[facility] CenterComment on above:Performed By: #### LACDS, TROPI, PRCAL, MYCM #### [facility] [address] [place] [address] [phone] Lactic Acid, SepsisNOT REPORTEDNormal0.5-1.9[facility] CenterComment on above:Performed By: #### LACDS, TROPI, PRCAL, MYCM #### [facility] [address] [place], [place] [id number] Legionella Ag, Uron 88-81-0606Mcyobonimb Ag, UrSpecimen Description .CLEAN CATCH URINE Special Requests NOT [...] levels of this test. Report Status FINAL 08/15/2018NormChillicothe HospitalComment on above:Performed By: #### ULAG #### [facility] [address] [place] [address] [phone] Procalcitoninon 84-29-4413Leigtss mass conc3.39 ng/mLHigh<0.09[facility] CenterComment on above:Result Comment: Suspected Sepsis: 0.09-0.49 ng/mL Low likelihood [...] entered into the Change in Procalcitonin Calculator (www.evzmqj-dze-xdvqslihis.MogiMe) to determine the patient's Mortality Risk PrognosisPerformed By: #### LACREY, TROPI, PRCAL, MYCM #### [facility] [address] [place] [address] 6[address]48 Strep pneum Ag,CSF/Uron 67-03-4400Biqte pneum Ag,CSF/UrSpecimen Description .CLEAN CATCH URINE Special Requests NOT REPORTED Direct Exam NEGATIVE: Strep pneumoniae antigen not detected Report Status FINAL 08/15/2018[facility] HospitalComment on above:Performed By: #### SPAG #### [facility] [address] [place] [address] Troponinon 97-49-6775Urdhnbhx I.cardiac mass concng/mLNormal<0.03 [facility] CenterComment on above:Result Comment: Troponin T results cannot be compared to Troponin-I results.Performed By: #### LACDS, TROPI, PRCAL, MYCM #### [facility] [address] [place] [address]206 Troponin I.cardiac mass [facility] Comment on above:Result Comment: Reference Range: <0.03 Within reference range. 0.03-0.09 Possible myocardial damage. Repeat at appropriate intervals to rule out chronic elevation. >= 0.10 Indicative of myocardial damage. Patients with high levels of Biotin oral intake (i.e >5mg/day) may have falsely decreased Troponin T levels. Samples collected within 8 hours of biotin intake may require additional information for diagnosis.Performed By: #### LACDS, TROPI, PRCAL, MYCM #### [facility] [address] [place] [address] Urinalysison 15-75-7985Qbirvjesr, UrineNegativeInvalid Interpretation CodeNEG;NEGATIVEOHIO VALLEY HOSPITALBlood, UrineModerate AbnormalNEG;NEGATIVEOHIO VALLEY HOSPITALInterpretation and review of laboratory resultsAbnormalInvalid Interpretation CodeOHIO VALLEY HOSPITALNitrite, UrineNegativeInvalid Interpretation CodeNEG;NEGATIVEOHIO VALLEY HOSPITALProtein, UrineNegativeInvalid Interpretation CodeNEG;NEGATIVE mg/dLOHIO VALLEY HOSPITALRBCs, Urine1 /HPFInvalid Interpretation Code0 - 5MEM[facility]IAL HOSPITALquamous Epithelial< 1Invalid Interpretation Code0 - 40 /HPFFayette County Memorial Hospital, bacteria in sedimentRare Invalid Interpretation CodeNS;RARE /HPFFayette [facility] Hospital, characterHazyInvalid Interpretation CodeFayette County Memorial Hospital, colorYellowInvalid Interpretation CodeFayette County Memorial Hospital, glucose presenceNegativeInvalid Interpretation CodeNEG;NEGATIVE mg/dLFayette County Memorial Hospital, ketones presenceNegativeInvalid Interpretation Code NEG;NEGATIVE mg/dLFayette County Memorial Hospital, leukocyte esterase presenceSmallAbnormalNegativeFayette County Memorial Hospital, pH6.0 [pH] Invalid Interpretation Code4.5 - 8.0[facility], specific gravity1.014 1Invalid Interpretation Code1.003 - 1.029OHIO VALLEY HOSPITALUrobilinogen, Urine< 2.0Invalid Interpretation Code<2 mg/dLOHIO VALLEY HOSPITALWBCs, Urine6 /HPFHigh0 - 5OH[facility] VALLEY HOSPITALCBC and Differentialon 72-14-2072Ivjaxfhev4.7 %Invalid Interpretation CodeOHIO VALLEY HOSPITALBasophils0.1 K/mcLInvalid Interpretation Code0 - 0.2OH[facility] VALLEY HOSPITALEosinophils0.2 K/mcLInvalid Interpretation Code0 - 0.5 [facility]LEY HOSPITALErythrocytes (RBC)3.97 M/mcLInvalid Interpretation Code3.7 - 5.0OH[facility] VALLEY HOSPITALHematocrit (HCT)35.7 %Invalid Interpretation Code34.4 - 44.8 %[facility] HOSPITALHemoglobin (HGB) 12.2 g/dLInvalid Interpretation Code11.6 - 15.4 g/dLOHIO VALLEY HOSPITALInterpretation and review of laboratory resultsAbnormalInvalid Interpretation CodeOHIO VALLEY HOSPITALLymphocytes2.1 K/mcLInvalid Interpretation Code1.0 - 3.7OHIO VALLEY HOSPITALMCH30.6 pgInvalid Interpretation Code27.9 - 33.9 pgOHIO VALLEY HOSPITALMCHC34.0 g/dL Invalid Interpretation Code33.1 - 35.1 g/dLOHIO VALLEY HOSPITALMCV89.8 fLInvalid Interpretation Code82.6 - 98.9OH[facility] VAL[facility] HOSPITALMonocytes 0.6 K/mcLInvalid Interpretation Code0.1 - 0.6[facility] Neutrophils6.6 K/mcLInvalid Interpretation Code1.2 - 6.9[facility] VALLEY HOSPITALPlatelet mean volume (PMV)8.6 fLInvalid Interpretation Code7.0 - 10.6 [facility] HOSPITALPlatelets196 K/mcLInvalid Interpretation Ajle641 - 402OHFLOWER HOSPITALRDW-CA15.0 %High10 - 14.4 %MEMORIAL HOSPITALegmented Neut69.6 %Invalid Interpretation CodeRANDALL VILLE [address] suppressor/100 cells1.8 10*3/uLInvalid Interpretation CodeRANDALL VILLE [address] suppressor/100 cells21.8 10*3/uLInvalid Interpretation Code [place] [address] suppressor/100 cells6.1 10*3/uLInvalid Interpretation CodeOHIO VALLEY HOSPITALWBC (Leukocytes)9.5 K/mcLInvalid Interpretation Code3.4 - 10.6OH[facility] VALLEY HOSPITALComprehensive Metabolic Panelon 67-16-7415Dpwhkkt aminotransferase (ALT)18 U/LInvalid Interpretation Code14 - 65 U/[facility] HOSPITALAlbumin3.1 g/dLLow3.2 - 5.2 g/dLOHIO VALLEY HOSPITALAlkaline phosphatase (ALP)78 U/LInvalid Interpretation Code40 - 140 U/[facility]'S HOSPITALAspartate aminotransferase (AST)7 U/LInvalid Interpretation Code0 - 45 U/[facility] HOSPITALCalcium8.6 mg/dLInvalid Interpretation Code8.4 - 10.2 mg/dL [facility] HOSPITALChloride106 mmol/LInvalid Interpretation Code98 - 108 mmol/[facility]'S HOSPITALCO227 mmol/LInvalid Interpretation Code21 - 32 mmol/[facility]'S HOSPITALCreatinine1.13 mg/dLHigh0.4 - 1.1 mg/dL [facility]ITALeGFR (black)mL/min/{1.73_m2}Invalid Interpretation Codeml/min/1.73sq.[facility] HospitaleGFR (non-black)54 mL/min/{1.73_m2}Low>60[facility]ITALGlucose113 mg/rNNabj18 - 99 mg/dLOHIO VALLEY HOSPITALInterpretation and review of laboratory resultsAbnormalInvalid Interpretation CodeOHIO VALLEY HOSPITALPotassium 3.7 mmol/LInvalid Interpretation Code3.5 - 5.1 mmol/[facility]ITALProtein6.8 g/dLInvalid Interpretation Code6 - 8 g/dLMEMORIAL HOSPITALodium140 mmol/LInvalid Interpretation Cdrc962 - 145 mmol/[facility] HOSPITALUrea dgrzrodd54 mg/dLInvalid Interpretation Code8 - 25 mg/dL [facility]ITALUrine, bilirubin presence0.4 mg/dLInvalid Interpretation Code0.3 - 1.2 mg/dLOHIO VALLEY HOSPITALLipaseon 86-70-2312Tfklyb083 U/LInvalid Interpretation Code73 - 393 U/[facility] Vital Signs Date TimeVital SignValuePerforming TsurtlizcXdfnujwi03-61-0063 11:47-0400Body rxylmi504.5 cmJessica [employer] SecurityNRIVS Work Phone: [facility] HealthcareChovhtybfg37-46-6435 11:47-0400Body mass index (BMI) [Ratio]38.41 kg/s1Kctyuqv [employer]NRIV[employer] Work Phone: [facility] HealthcarePhbtfjvata58-79-0158 11:47-0400Body .25 kgJessica Northern Defence & SecurityN-SLEEVE WHEEL MAKER Work Phone: [facility] HealthcareFafgizkobd96-37-3233 11:47-0400Diastolic blood kelmkomm40 mm[Hg]Jennie Van COAT FITTER-SLEEVE WHEEL MAKER Work Phone: [facility] HealthcareBwxkdorptl84-50-9953 11:47-0400Respiratory rate18 /minJecarlos Van COAT FITTER-SLEEVE WHEEL MAKER Work Phone: [facility] HealthcareGiscycynep13-29-7365 11:47-2859BgK1% (BldA) [Mass fraction]98 %Jennie [facility] CenterN-SLEEVE WHEEL MAKER Work Phone: [facility] HealthcareAvmlbxdlwq18-40-2750 11:47-0400Systolic blood kcmyqlcg616 mm[Hg]Jennie [facility] CenterN-SLEEVE WHEEL MAKER Work Phone: [facility] HealthcareKhvtovorqu28-68-2991 12:32-0400Body .5 cmChristophmichael Sánchez DPM Work Phone: [facility] HealthcareZzodvfhbem86-22-6260 12:32-0400Body mass index (BMI) [Ratio]38.41 kg/v0Hsfydvyvzfd Bohach DPM Work Phone: [facility] HealthcareEdocbvvjro89-52-8005 12:32-0400Body .25 kgChristopher Bohach DPM Work Phone: [facility] HealthcareIfyaothusg33-89-9982 12:32-0400Diastolic blood ccnyzkhi26 mm[Hg]Christdipak Sánchez DPM Work Phone: [facility] HealthcareRffaekfdrn12-21-3257 12:32-0400Heart cakm779 /min Christophmichael Sánchez DPM Work Phone: [place] [address]Iebzkvuexr12-98-1802 12:32-0400Systolic blood ipvtgdne359 mm[Hg]Christophmichael Sánchez DPM Work Phone: [place] [address]Odduvaeadj59-43-1181 16:21-0400Body .5 cmChristopher Boboach DPM Work Phone: [facility] HealthcareXjplhgtuxk91-97-8049 16:21-0400Body mass index (BMI) [Ratio]38.41 kg/i9Qdiumkokiqy Bohach DPM Work Phone: [facility] HealthcareGpdpdmhgil71-28-7105 16:21-0400Body mrytbc17.25 kgChristop Bohach DPM Work Phone: [facility] HealthcareFlpfxaqrxo80-01-0517 16:21-0400Diastolic blood unyrbwzd05 mm[Hg]Robbin Sánchez DPM Work Phone: [facility] HealthcareQgdijicdnv91-06-1041 16:21-0400Heart rate89 /min Christdipak Sánchez DPM Work Phone: [facility] HealthcareVxfemhjinw51-39-0837 16:21-0400Systolic blood mm[Hg]Robbin Sánchez DPM Work Phone: [facility] HealthcareWxyygkeotf68-99-8545 23:15-0400Diastolic blood mm[Hg]Severo Case MD Work Phone: [employer] [facility] Wzqzzi92-71-0445 23:15-0400Heart rate74 /minSevero Case MD Work Phone: [employer] [facility] Hblyle82-86-1254 23:15-0400 Respiratory rate16 /minSevero Case MD Work Phone: [facility] CenterPlayCanvas [facility] Bphxre29-44-9330 23:15-4391YsS6% (BldA) [Mass fraction]97 %Severo Case MD Work Phone: [phone] [facility] Uxfsvw53-80-5552 23:15-0400Systolic blood ognyihsg683 mm[Hg]Severo Case MD Work Phone: [employer] [facility] Meqvfd62-62-9027 21:24-0400Body wettjr570.4 cmSevero Case MD Work Phone: [employer] [facility] Bluyuo34-26-4084 21:24-0400Body mass index (BMI) [Ratio]41.99 kg/m2RlwitqSevero Case MD Work Phone: [facility]07-01-2025 21:24-0400Body contpp96.52 kgSevero Case MD Work Phone: [facility]07-01-2025 21:15-0400Body wrfdgabbtce02 [degF]Severo Case MD Work Phone: [facility]06-10-2025 12:02-0400Body .5 cmLynn Block MD Work Phone: [phone])163-[address] [place], [place] [address]Mxdfojshws57-47-7957 12:02-0400Body mass index (BMI) [Ratio]38.41 kg/m2Lynn Block MD Work Phone: [facility] HealthcareXqdrrgtldh20-63-7974 12:02-0400Body cywzyu24.25 kgLynn Block MD Work Phone: [phone])820-[address] [place], [place] [address]Nyhnfjnait31-80-8634 13:00-0500Body cxdvix977.5 cmLynn Block MD Work Phone: [phone])254-[address] [place], [place] [address]Nbgdmcjajt53-42-1925 13:00-0500Body mass index (BMI) [Ratio]38.41 kg/m2Lynn Block MD Work Phone: [facility] HealthcareJwbldyrlyq89-06-7258 13:00-0500Body .25 kgLynn Block MD Work Phone: 1(445)264-[address] [place], [place] [address]Chunlkubhg80-68-2328 11:31-0500Body .5 cmFozia Meng MANAGER SUPPLY CHAIN PLANNING Work Phone: [phone] [place], [place] [address]Cosikipmde80-44-3982 11:31-0500Body mass index (BMI) [Ratio]37.9 kg/j2Dctphkialli Meng MANAGER [employer]ANNING Work Phone: [phone])426-[address] [place], [place] [address]Trlxemtcms63-03-7288 11:31-0500Body .98 kgFealli Knutsongel MANAGER [employer]ANNING Work Phone: [phone])246-[address] [place], [place] [address]Ncqnxpaddo24-86-7897 11:31-0500Diastolic blood mm[Hg]Fozia Meng MANAGER [employer] CH[employer]ANNING Work Phone: [facility] HealthcareBkfueplynp37-82-1259 11:31-0500Systolic blood aepbizeo091 mm[Hg]Fozia Meng MANAGER [employer]ANNING Work Phone: [facility] HealthcareYcjiykyruk16-86-9217 09:42-0500Body krzayd301.5 Jimmy Adair MD Work Phone: [phone]) [phone]wfbki69-37-5591 09:42-0500Body mass index (BMI) [Ratio]38.23 kg/m2Dimas Adair MD Work Phone: [phone]adynd31-56-3491 09:42-0500Body aiwnmdkjqup97.29 [degF]Dimas Adair MD Work Phone: 1(138) [phone]jwyhl78-35-7524 09:42-0500Body bramoh30.8 kgDimas Adair MD Work Phone: 1(639) [phone]qgvdj56-15-3097 11:30-0500Body .5 cm Fozia Meng MANAGER [employer]ANNING Work Phone: [facility] HealthcareKmzzjgrvjc69-87-1048 11:30-0500Body mass index (BMI) [Ratio]39.91 kg/m0Ypcgzfqalli Meng MANAGER [employer]ING Work Phone: [facility] HealthcareDudovetavc07-75-9606 11:30-0500Body ypyhfh94.97 kgFealli Meng MANAGER [employer]ING Work Phone: [facility] HealthcareFauhfdmnoc97-26-0660 11:30-0500Diastolic blood yagdyllh77 mm[Hg]Fozia Meng MANAGER [employer]ING Work Phone: [facility] HealthcareIkhochewis02-82-0573 11:30-0500Systolic blood vsoitaif520 mm[Hg]Fozia Meng MANAGER [employer]ING Work Phone: [facility] HealthcareKczpuwpukq41-16-5805 10:09-0400Body .5 cmTrace Casas MD Work Phone: [facility] HealthcareJfgkaweosq86-70-4562 10:09-0400Body mass index (BMI) [Ratio]38.96 kg/g3YhefmqiTrace Casas MD Work Phone: [facility] HealthcareGaywmuovpl32-84-9880 10:09-0400Body spamxj79.62 kgTrace Casas MD Work Phone: [facility] HealthcareAfdfzgiesa01-72-8786 10:09-0400Diastolic blood azsdptbo31 mm[Hg]Trace Casas MD Work Phone: [facility] HealthcareIzfnjkvxsw83-76-5067 10:09-0400Systolic blood uitdghie606 mm[Hg]Trace Casas MD Work Phone: [facility] HealthcareXrrbrnmdda04-04-1942 14:20-0400Body tkfpig611.5 cmNicole Ginger DO Work Phone: [facility] HealthcareRrekyfstli51-71-5703 14:20-0400Body mass index (BMI) [Ratio]38.41 kg/b1Vycrir Ginger DO Work Phone: [facility] HealthcareJpzjkxcqzm94-14-2136 14:20-0400Body uwkflj81.25 kgNicole Ginger DO Work Phone: [facility] HealthcareMtjnchiwjn75-05-1645 14:20-0400Diastolic blood rdkxpixj72 mm[Hg]Cheryl Ginger DO Work Phone: [facility] HealthcareBgewadvrmx44-21-9904 14:20-0400Heart rate83 /min Cheryl Ginger DO Work Phone: [facility] HealthcareEfgxiaodzh01-76-4243 14:20-9425NcZ9% (BldA) [Mass fraction]97 %Cheryl Ginger DO Work Phone: [facility]OUniversity HospitalNrincpsmfb08-20-3401 14:20-0400Systolic blood dgourtem024 mm[Hg]Cheryl Ginger DO Work Phone: [facility] HealthcareUkgezssunb04-80-0432 14:44-0400Body temperature 98.49 [degF]MASSIMO Shook DP Work Phone: [phone]) [phone]mtceb52-90-2842 14:44-0400Diastolic blood ptyzyxit89 mm[Hg]MASSIMO Shook DPM Work Phone: [phone]kxktp71-80-1234 14:44-0400Heart rate94 /minCJ Boone DPM Work Phone: 1(332) [phone]qztvm80-39-5379 14:44-0400Systolic blood pressure 139 mm[Hg]MASSIMO Shook DPM Work Phone: [phone]) [phone]eltyy30-16-3965 09:36-0400Body imgppn418.5 cmMwhz Education Work Phone: [facility]09-28-2022 09:36-0400Body mass index (BMI) [Ratio]38.67 kg/m2Mwhz Education Work Phone: [facility]09-28-2022 09:36-0400Body tdagsf99.89 kgMwhz Education Work Phone: [facility]12-13-2020 20:53-0500BMI (Body Mass Index)39.32 kg/l7EasyslgfbtrSt. Joseph Hospital, FN94-82-2332 20:53-0500Body Nsvhlsjtlvz53.5 [degF][place], [place] 09-16-2020 20:53-0500Body myzmhd75.52 kgSt[facility], [place] 09-16-2020 20:53-0500BP Frapfkehs521 mm[Hg][facility] [place] 09-16-2020 20:53-0500BP Tebnwdxa723 mm[Hg][facility] 09-16-2020 20:53-6161Gleetr865.5 [facility], [place] 09-16-2020 20:53-0500Pulse (Heart Rate)99 /minSt. [facility], QK30-31-9759 20:53-0500Pulse Glxrrgca69 %[facility] [place] 09-16-2020 20:53-0500Respiratory Rate18 /minChristopher [facility] [place], [place] Encounters Encounter DateEncounter TypeCare ProviderFacilityStart: 07-21-2025 End: 83-47-8957nsaqfabmvhHYXAGWVUMedicine Barnesville Hospitaltart: 07-21-2025 End: 28-97-0038Bnfjvttuor hospital visit by physicianBethesda Hospitaluzair Laboratory Schedule MWHZ LaboratoryComment on above:ArrivedStart: 06-12-2025 End: 73-59-5784yzjknxkksvCWJBKFTICA [facility] HospitalStart: 06-12-2025 End: 26-35-4160Aktvafakkc hospital visit by physicianBethesda Hospitaluzair Laboratory Schedule MWHZ LaboratoryComment on above:ArrivedStart: 05-24-2025 End: 18-83-3320OvkpacOmnigyNRIVS Work Phone: noms NEUROLOGYStart: 05-24-2025 End: 36-00-3724Tyjugg 1234ENTER Work Phone: noms NEUROLOGYStart: 05-24-2025 End: 01-05-7340mdoeueatviKGWLQPX SPRINGERNot AvailableStart: 05-24-2025 End: 45-89-7083Qupqpb outpatient visit 25 minutesJeLiquidText Work Phone: noms [facility] NeurologyComment on above:BUCK (obstructive sleep apnea) (Primary Dx); Cervical paraspinal muscle spasm; Cervical radiculopathyStart: 05-23-2025 End: 90-02-4236Zlamsyhqr encounterLynn Block MD Work Phone: noms [facility] 111Start: 05-15-2025 End: 20-38-0009ilszxeemyhHFHIXPike Community Hospitaltart: 05-15-2025 End: 12-30-9497Swrxewlggx hospital visit by physicianBethesda Hospitaluzair Laboratory Schedule MWHZ LaboratoryComment on above:ArrivedStart: 04-20-2025 End: 02-37-7575Zsdrrx flowsheetRobbin Sánchez DPM Work Phone: noms Vizury PODIATRYStart: 04-20-2025 End: 08-02-2564Rilttd flowsheetChiain Sánchez DPDieudonne Work Phone: noms Vizury PODIATRYStart: 04-20-2025 End: 07-27-5584Vgyblz outpatient visit 25 minutesChiain Sánchez DPM Work Phone: noms WWW PODIATRYComment on above:MRSA (methicillin resistant staph aureus) culture positive (Primary Dx); Right foot pain; Skin ulcer of toe of right foot with fat layer exposed (HCC); Idiopathic progressive polyneuropathy; Infection of toe; Charcot arthropathy of midfoot; Ulcer of left foot, limited to breakdown of skin (HCC); Closed nondisplaced fracture of second metatarsal bone of right foot, initial encounterStart: 04-20-2025 End: 39-80-4219tcxyhguetzKNSMGRPFJHQ J BOHACHNot AvailableStart: 04-14-2025 End: 65-08-8645qxykbkcabqHTVBQ BACKMercy Willard HospitalStart: 04-14-2025 End: 30-30-9354Maekgwtaqq hospital visit by Paola Adam MD Work Phone: mWHR LaboratoryComment on above:Hyperglycemia; Mixed hyperlipidemia; Chronic renal impairment, stage 3a (HCC)Start: 04-12-2025 End: 36-73-5152Clkyxnlvs Result EncounterChiain Sánchez DPDieudonne Work Phone: noms External Department UnsolicitedStart: 04-12-2025 End: 84-75-6336Ddpwtokyf Result EncounterChristopher Adam Sánchez DPM Work Phone: noms External Department UnsolicitedStart: 04-11-2025 End: 41-14-2889Ypfzbpoty Result EncounterChiain Sánchez DPM Work Phone: noms External Department UnsolicitedStart: 04-11-2025 End: 87-13-8650Fvxfsgllr Result EncounterChiain Sánchez DPM Work Phone: noms External Department UnsolicitedStart: 04-11-2025 End: 45-21-1680becsbtyltiPBCMBYKSQOC J BOHACHProvidence Hospital HospitalStart: 04-11-2025 End: 94-27-6381Jktsquueoq hospital visit by physicianRobbin Sánchez DPM Work Phone: [facility] MRIComment on above:Pain in right footStart: 04-06-2025 End: 67-31-9660Etlmws outpatient visit 25 minutesChiain Sánchez DPM Work Phone: noms WWW PODIATRYComment on above:Right foot pain (Primary Dx); Skin ulcer of toe of right foot with fat layer exposed (HCC); Infection of toe; Idiopathic progressive polyneuropathy; Generalized edemaStart: 04-06-2025 End: 49-77-4872qlyuktgbloGTHDGAAXSOM J BOHACHNot AvailableStart: 04-06-2025 End: 37-46-2508Nfigad flowsheetRobbin Sánchez DPDieudonne Work Phone: noms WWW PODIATRYStart: 04-06-2025 End: 64-86-0842Ulatth flowsTeresa Sánchez DPDieudonne Work Phone: noms WWW PODIATRYStart: 04-04-2025 End: 01-58-6531Vafxekavt department patient visitSevero Case MD Work Phone: [facility] Emergency DepartmentComment on above: Pressure injury of deep tissue of toe, unspecified laterality (Primary Dx)Start: 03-14-2025 End: 01-52-5838Riarhk Magen Block MD Work Phone: noms NEUROLOGYStart: 03-14-2025 End: 17-66-8848Uvmmzq Magen Block MD Work Phone: noms NEUROLOGYStart: 03-14-2025 End: 98-09-2938Utqxzr outpatient visit 25 minutesLynn Block MD Work Phone: noms SWS NEUR BComment on above:BUCK (obstructive sleep apnea) (Primary Dx); Claustrophobia ; HypersomniaStart: 03-14-2025 End: 30-28-6391ftznovpkamDNMM D BEJNot AvailableStart: 02-15-2025 End: 93-18-6110fxfsixwzqrWKAAO BACKProvidence Hospital HospitalStart: 02-15-2025 End: 36-94-4617Srwoisqpge hospital visit by Paola Adam MD Work Phone: [facility] MammographyComment on above: Encounter for screening mammogram for malignant neoplasm of breastStart: 91-71-0156husqmbpxhnSaeoxkhe:FTMCStart: 02-13-2025 End: 61-96-5105Cqrtxomichael Casas MD Work Phone: noms NEUROLOGYStart: 02-13-2025 End: 75-30-1820Eznuwamichael Casas MD Work Phone: noms NEUROLOGYStart: 02-13-2025 End: 85-82-7383kzhxpnicvfOYWWMWN W BAUERNot AvailableStart: 02-13-2025 End: 84-55-5117Uxnyga outpatient visit 25 minutesTrace Casas MD Work Phone: noms SWS NEURComment on above:Charcot's joint, left ankle and foot (Primary Dx); Gait instability; Idiopathic progressive polyneuropathy; Intractable 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 (CMS/HCC); Restless legs; Carpal tunnel syndrome, bilateral; BUCK (obstructive sleep apnea)Start: 12-06-2024 End: 10-84-3898Awidno Magen Block MD Work Phone: noms BM NEUROLOGYStart: 12-06-2024 End: 60-63-3600Aspluk Magen Block MD Work Phone: noms NEUROLOGYStart: 12-06-2024 End: 32-48-7868rjdhtblufeHVWA D BEJNot AvailableStart: 12-06-2024 End: 25-10-8510Oxpmoc outpatient new 60 minutesLynn Block MD Work Phone: noms SWS NEUR BComment on above:BUCK (obstructive sleep apnea) (Primary Dx); BUCK on CPAP; Claustrophobia (CMS/HCC)Start: 11-14-2024 End: 08-87-8382Ernkcx flowsheetFelicia Jamila Meng MANAGER [employer] Work Phone: noms NEUROLOGYStart: 11-14-2024 End: 96-53-9345Inwxto flowsheetFelicia C Windnagel MANAGER [employer] Work Phone: noms NEUROLOGYStart: 11-14-2024 End: 82-79-9386Icjehu outpatient visit 25 minutesFelicia Jamila Meng MANAGER [employer] Work Phone: noms SWS NEURComment on above:BUCK on CPAP (Primary Dx); Idiopathic progressive polyneuropathy; Restless legs; Intractable 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 (CMS/HCC) Start: 11-14-2024 End: 58-95-4424pbepuitrssXWQNUBI C WINDPIERCEGELNot AvailableStart: 11-14-2024 End: 65-85-1725lsmgqcshxlXJUBR [facility] Hospitaltart: 11-14-2024 End: 15-99-6317Pgkjuyeopm hospital visit by physicianFelipe Adam MD Work Phone: mZ LaboratoryComment on above:Pre-diabetes; Mixed hyperlipidemiaStart: 11-02-2024 End: 12-88-7216Lzgbqtcmo encounterJanel Allen MANAGER [employer]ANNING Work Phone: noms [facility] NEURO 210Start: 10-11-2024 End: 11-34-3522Trondj outpatient new 45 minutesFelipe Adam MD Work Phone: [facility] Ear, Nose and Throat PhysiciansComment on above:Thyroid nodule (Primary Dx); Lipoma of neckStart: 10-11-2024 End: 01-52-2640pstsyumnztJWFSX BACKOhio Health AmbulatoryStart: 10-05-2024 End: 85-41-3477MofurdRekryto W Bauer MD Work Phone: noms SWS NEURComment on above:Idiopathic progressive polyneuropathy; Non-seasonal allergic rhinitis due to pollenStart: 09-14-2024 End: 87-80-1853Svlmkc flowsheetFelicia C Windnagel MANAGER [employer] Work Phone: noms BM NEUROLOGYStart: 09-14-2024 End: 69-06-9977Oetpjf flowsheetFelicia C Windnagel MANAGER [employer] Work Phone: noms BM NEUROLOGYStart: 09-14-2024 End: 88-01-5039Wsqyibwpj encounterFelicia C Windnagel MANAGER [employer] Work Phone: noms [facility] NEURO 210Start: 09-14-2024 End: 29-95-5903Qrbctu outpatient visit 25 minutesFelicia C Windnagel MANAGER [employer]ANNING Work Phone: noms SWS NEURComment on above:BUCK on CPAP (Primary Dx); Idiopathic progressive polyneuropathy; Intractable 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 (CMS/HCC); Restless legs; Bilateral carpal tunnel syndromeStart: 09-14-2024 End: 67-39-9872urphkjtkjvFBWJAUQ C WINDNAGELNot AvailableStart: 09-09-2024 End: 76-02-6525Kbczdrkfqn OrdersFelicia [facility] ENT [place] DiegolandComment on above:Thyroid nodule (Primary Dx)Start: 09-06-2024 End: 84-45-4837arghkahcvkLHRES BACKMercy Willard HospitalStart: 09-06-2024 End: 84-65-3743Qjxvbslhyo hospital visit by Paola Adam MD Work Phone: [facility] UltrasoundComment on above: Thyroid noduleStart: 08-11-2024 End: 15-80-3377PsmjcrRmobvoa W Bauer MD Work Phone: noms SWS NEURComment on above:Idiopathic progressive polyneuropathy; Non-seasonal allergic rhinitis due to pollenStart: 06-10-2024 End: 61-14-4675Cenxao flowsFransisco Casas MD Work Phone: noms BM NEUROLOGYStart: 06-10-2024 End: 84-99-5750Qfgrju Therese Casas MD Work Phone: noms BM NEUROLOGYStart: 06-10-2024 End: 90-47-7691Vrqqzi outpatient visit 25 minutesBreclaudia Casas MD Work Phone: noms SWS NEURComment on above:Idiopathic progressive polyneuropathy (Primary Dx); Bilateral carpal tunnel syndrome; Restless legs; Intractable 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 (CMS/HCC) Start: 06-10-2024 End: 61-59-5561rhucwjpuoeNJYEOZI W BAUERNot AvailableStart: 05-10-2024 End: 25-86-4135Ndvixmwmbg hospital visit by Paola Adam MD Work Phone: mWHZ LaboratoryStart: 05-10-2024 End: 70-88-5493Uxikjp outpatient visit 40 minutesNicole Ginger DO Work Phone: noms WNZ NEUROComment on above:BUCK (obstructive sleep apnea); Hypersomnia; Snoring; Class 2 obesity due to excess calories with body mass index (BMI) of 38.0 to 38.9 in adult, unspecified whether serious comorbidity presentStart: 02-15-2024 End: 30-46-0980hudxzmnuupDalon [facility] HospitalFacility:[facility] CenterStart: 02-15-2024 End: 70-61-4236vquzgpovanPLQ [facility] Work Phone: [facility] Work Phone: Start: 02-15-2024 End: 12-19-5373Zuefqgej ReferredDPM [facility] Work Phone: [facility]-LAB Path Spec [facility] HospStart: 06-15-2023 End: 46-51-7356Vqvfadbmqm hospital visit by Paola Adam MD Work Phone: mwhz LaboratoryComment on above:Mixed hyperlipidemia Start: 55-71-2852mwfmaynatrPARVKOhioHealth [facility] PhysiciansStart: 03-03-2023 End: 88-88-7825Ptdnqj outpatient new 45 minutesCJ J Boone DPM Work Phone: [facility] Physicians GroupComment on above:Charcot arthropathy of midfoot (Primary Dx); Gastrocnemius equinus, unspecified laterality; Foot pain, leftStart: 02-11-2023 End: 71-23-6417gjsdrvlustRKBZK D HIGHLANDERFacility:G0Vajqa: 02-05-2023 End: 47-65-7594Ujgyizvqmw hospital visit by Paola Adam MD Work Phone: mwhz LaboratoryComment on above:Pelvic pressure in femaleStart: 02-04-2023 End: 58-68-6175byfzzrewnvCLUBJ D HIGHLANDERFacility:A4Kpppk: 01-28-2023 End: 18-17-0398aalrhgabyqAQJEF D HIGHLANDERFacility:K0Zehwb: 01-06-2023 End: 66-19-6384Nmhhejstq department patient visitGARCorewell Health Lakeland Hospitals St[facility] Hospitaltart: 07-09-2022 End: 92-50-0495Qzidoiwyau hospital visit by JOE Rod RD Work Phone: mWHD Diet and NutritionComment on above:ArrivedStart: 07-02-2022 End: 33-32-9513Bxlzjryvay hospital visit by Efren Diabetes Education Work Phone: mwhZ Diabetic EducationStart: 06-25-2022 End: 87-59-0242Ksjeekbybt hospital visit by physicianTennille Additional X[facility] At [facility] RadiologyComment on above:Foreign body (FB) in soft tissue Start: 06-25-2022 End: 93-79-5389Ygrdlvrnxw hospital visit by physicianrobby Mri [facility] MRIComment on above:Pain of foot, unspecified laterality; Closed nondisplaced fracture of second metatarsal bone of left foot, initial encounter; Closed nondisplaced fracture of lateral cuneiform of left foot, initial encounterStart: 05-27-2022 End: 62-97-5683Fwhtiundgk hospital visit by physicianTennille Ultrasound [facility] UltrasoundComment on above:Neck massStart: 04-28-2022 End: 54-14-4901zbzaxmxwihAUZYVJ S GOHETALSamaritan North Health Centertart: 04-28-2022 End: 45-55-7492Ondzbpmbss hospital visit by Paola Adam MD Work Phone: [facility] LABORATORYComment on above:Acute cystitis with hematuriaStart: 04-12-2022 End: 41-92-1313Cuakxfqiuo hospital visit by Paola Adam MD Work Phone: mWHZ LaboratoryComment on above:Fatigue, unspecified type; Encounter for screening for HIV; Mixed hyperlipidemia; Hyperglycemia; Chronic renal impairment, stage 3b (HCC)Start: 02-05-2022 End: 74-99-5936Bkjlaeelpz hospital visit by Kaylah CORRALESWHZ Physical TherapyStart: 02-04-2022 End: 50-25-7152Xpagaaf encounter procedureSelect [facility] Strub RdStart: 02-03-2022 End: 62-73-5415Rpyurvspnj hospital visit by Bradley Johnson Physical TherapyStart: 01-29-2022 End: 33-40-8636Thptrfhvbh hospital visit by Ivan Rangel PTAMWHZ Physical TherapyComment on above:ArrivedStart: 01-27-2022 End: 59-18-8064Mwvalrifvy hospital visit by Kaylah Donohue PTMWHZ Physical TherapyComment on above:ArrivedStart: 01-24-2022 End: 47-92-6484Jznrtxwsxd hospital visit by Jojo Mccormack PTMWHZ Physical TherapyComment on above:ArrivedStart: 01-22-2022 End: 96-99-3617Yfmclvzxyy hospital visit by Ivan MARCUSWHUzair Physical TherapyStart: 01-17-2022 End: 87-67-4370Esvndvecfq hospital visit by Ivan Rangel PTAMWHUzair Physical TherapyComment on above:ArrivedStart: 01-13-2022 End: 95-20-2982Qgebopkcuz hospital visit by Kaylah Donohue PTMWHZ Physical TherapyStart: 01-03-2022 End: 31-00-9790Igeocuwahs hospital visit by Ivan Rangel PTAMWHZ Physical TherapyComment on above:ArrivedStart: 12-31-2021 End: 96-33-9219Rmyfarimev hospital visit by Renetta Herman OTMWHUzair Occupational TherapyComment on above:ArrivedStart: 12-30-2021 End: 13-25-3130Esicpvxsnu hospital visit by Renetta LEONARDO Occupational TherapyComment on above:ArrivedStart: 12-23-2021 End: 84-62-4848Efbzdwyrbi hospital visit by Renetta Herman OTMWHUzair Occupational TherapyComment on above:ArrivedStart: 11-29-2021 End: 56-46-4469vxjxxccxxkMZBIPFlint River Hospitaltart: 08-01-2021 End: 60-91-8926Kttlanuesv hospital visit by Paola Adam MD Work Phone: mwhz LaboratoryComment on above:Frequent UTI; Urinary urgency; Urinary frequencyStart: 07-11-2021 End: 69-01-7241Ksisyfjban hospital visit by Paola Adam MD Work Phone: mZ LaboratoryComment on above:Frequent UTI; Urinary urgency; Urinary frequencyStart: 06-11-2021 End: 82-50-3908Arrybdiydf hospital visit by Paola Adam MD Work Phone: mwhz LaboratoryComment on above:Acute cystitis with hematuria; Recurrent UTIStart: 05-27-2021 End: 09-36-7634Zvzrlvuhvo hospital visit by Paola Adam MD Work Phone: mwhz LaboratoryComment on above:Difficult or painful urinationStart: 05-20-2021 End: 36-41-7572Rjgsllqtcj hospital visit by Paola Adam MD Work Phone: mWHZ LaboratoryStart: 04-13-2021 End: 99-59-8895Pwewvaudja hospital visit by Paola Adam MD Work Phone: mZ LaboratoryComment on above:Acute cystitis with hematuriaStart: 02-13-2021 End: 31-87-8844Zsroccjqvh [facility] Cov[facility] Pat Screening ScheduleMWHZ PRE ADMITComment on above:Suspected COVID-19 virus infectionStart: 01-21-2021 End: 58-38-3576Bundspogjj hospital [facility] Covheather Pat Screening ScheduleMWHZ PRE ADMITComment on above:Viral illnessStart: 11-15-2020 End: 67-47-7308Yiburqeidw hospital [facility] by [facility]Bet[facility] Tona Pat Screening ScheduleMWHZ PRE ADMITComment on above:ArrivedStart: 09-16-2020 End: 54-20-7746Jwigrkisx department patient visitChcrownpoint health care facilityher Sales Toribio Work Phone: [facility] EDComment on above:Acute thoracic back pain, unspecified back pain laterality (Primary Dx)Start: 08-24-2020 End: 16-09-9668Jrhotddhhq hospital visit by physicianDelta Regional Medical Centerrubens AdamCAPITAL DISTRICT PSYCHIATRIC CENTERUzair Laboratory Comment on above:Epidural abscessStart: 08-08-2020 End: 19-93-0223Rcapdkafwg hospital visit by physicianDelta Regional Medical Centerrubens BackCAPITAL DISTRICT PSYCHIATRIC CENTERUzair Laboratory Comment on above:SOB (shortness of breath)Start: 07-24-2020 End: 10-30-9969Sjnsezojbl hospital visit by physicianBilly BackCAPITAL DISTRICT PSYCHIATRIC CENTERUzair Laboratory Comment on above:Epidural abscessStart: 06-07-2020 End: 22-55-3201Ccsdruikaa hospital visit by physicianDelta Regional Medical Centerrubens BackCAPITAL DISTRICT PSYCHIATRIC CENTERUzair Laboratory Start: 05-25-2020 End: 25-74-9214Wmsnqcklxf hospital visit by physicianDelta Regional Medical Centerrubens BackCAPITAL DISTRICT PSYCHIATRIC CENTERUzair Laboratory Comment on above:Vitamin D deficiency; Mixed hyperlipidemia; HyperglycemiaStart: 12-14-2019 End: 54-20-4322Wksqxizukl hospital visit by Paola Pappas Laboratory Comment on above:MRSA (methicillin resistant Staphylococcus aureus) septicemia (HCC)Start: 09-24-2019 End: 37-74-8022Drzizwkhie hospital visit by Paola Adam MD Work Phone: mWHZ LaboratoryStart: 09-12-2019 End: 21-78-8413Gygrnafnrg hospital visit by Paola Adam MD Work Phone: mWHZ SLEEP LABStart: 08-29-2019 End: 39-16-6730Kuiiqekgkj hospital visit by [facility] Schedule [facility] SLEEP LABComment on above:ArrivedStart: 07-28-2019 End: 32-95-8271Tjbllfkkml hospital visit by Kong Campos [facility] RadiologyComment on above:MRSA (methicillin resistant Staphylococcus aureus) septicemia (HCC)Start: 06-17-2019 End: 23-58-1553Lipyausdtp hospital visit by Paola Pappas Laboratory Comment on above:MRSA (methicillin resistant Staphylococcus aureus) infection Start: 02-03-2019 End: 42-75-8052Vyixspj [facility] Start: 02-03-2019 End: 20-94-0704Gmcunsvyhf hospital visit by Nilesh Casas Work Phone: [facility] MRIComment on above: Brachial neuritis; Peripheral nerve disorder; Spasm of muscleStart: 11-10-2018 End: 05-58-7806Mqlkxao encounter procedureAndrey EarlyFacility:[facility] Start: 10-18-2018 End: 73-33-9254Rvrorun encounter procedureAndrey Early Work Phone: [facility] HospitalStart: 23-01-3419Tvhjcsi encounter procedureLuchasity NunnguiFacility:Brianzanesville city hospitalStart: 10-03-2018 End: 67-30-3965Bfdezed encounter procedureFelipe [facility] Hospitaltart: 09-20-2018 End: 56-75-1900Ylfnoyt encounter procedureLuis E JaureguiFacility:[facility] HospitalStart: 10-37-3731Suhzmwn encounter procedureFacility:[id number]: 67-12-6674Drcqqlb encounter procedureLUIS Tae Horner [facility] HospitalStart: 09-06-2018 End: 18-35-9279Qcljydj encounter procedureHistorical ProviderFranki [facility] Start: 08-31-2018 End: 14-02-5903Bsqpwpq encounter procedureHistorical ProviderPagosa Springs Medical Centerluiz [facility] Start: 08-27-2018 End: 36-00-9085Mjohidk encounter procedureLuis Tae PembertoniFacility:[facility] HospitalStart: 01-84-2124Wtcjpeu encounter procedureFacility:[id number]: 08-15-2018 End: 82-45-3661Ejvfxwhlcl and management of inpatientWASEMemorial Health System Marietta Memorial Hospitaltart: 04-02-2018 End: 84-74-9819Swkegzc encounter procedureJosophie KvngFacility:HolabirdStart: 61-88-3700Qroymyw encounter procedureMelmalcom Jose ManuelFacility:HolabirdStart: 02-04-2018 End: 21-79-1625WvlvjwywsvBznacf D GoldnerSclifton springs hospital & clinic HospitalStart: 00-96-1714Llwtziq encounter procedureTERESBrock CABELL HUNTINGTON HOSPITALJOCYAcuteCare Health Systemtart: 11-17-2017 End: 02-01-9638OufathwoqkXcfqqmyy Rings Work Phone: [facility] HospitalStart: 10-20-2017 End: 89-23-7895ZtjikighvaSUAFOJQDAKSHA Nevarez [facility] Hospitaltart: 19-56-0368Ykelhhe encounter procedureTERBrock Stephens Memorial Hospitaltart: 34-10-1750PdeqncxitmSNQYMK GHAZOULAvita Galion HospitalStart: 10-09-2017 End: 24-99-1113Flmtecj encounter procedureTERBrock [facility] Start: 09-91-1681Arkhkix encounter procedureTERA [facility] Start: 38-87-6930YxospvbrjmHMCSYK GHAZOULAvita Galion HospitalStart: 03-31-2017 End: 49-05-3891LgukyagnlwIAQHJWXCHASE [facility] Procedures DateProcedureProcedure DetailPerforming ClinicianStart: 18-66-6174Zwima metabolic panel calcium Rob PROCTOR Work Phone: Start: 21-07-8661E-reactive proteinKimberly Colton PROCTOR Work Phone: Start: 19-19-7770Vmhtd function panelJacsanta Samson MANAGER [employer] Work Phone: Start: 48-95-4596Ysion metabolic panel calcium total Peter D [facility] DPM Work Phone: Start: 30-22-2695L-reactive proteinPeter D [facility] DPM Work Phone: Start: 01-01-6832KSMBTIXRNQ CHECKPeter D [facility] DPM Work Phone: Start: 05-32-5055Sjmvfgwdetdhs metabolic panelBilly Jair MELENDREZ Work Phone: start: 39-69-0101Jdxuu panelBilly Back Work Phone: start: 95-68-3023MPJ FOOT RIGHT W WO CONTRAST Robbin Sánchez DPM Work Phone: Start: 07-34-7010Nga lower extrem oth/thn jt w/o & w/contr matrChristopher Adam Sánchez DPM Work Phone: Start: 47-28-6322Shthn of urea nitrogen quantitative Robbin Sánchez DPM Work Phone: Start: 32-03-5187JYAM BUN + CREATININEChristopher Adam Sánchez DPM Work Phone: Start: 61-59-9046Gskbgzabtw examination foot 2 views Robbin Sánchez DPM Work Phone: Start: 04-04-2025 End: 57-57-7279Fkaqi toe minimum 2 viewsSevero Case MD Work Phone: Start: 22-82-3604F-reactive proteinSevero Case MD Work Phone: Start: 04-04-2025 End: 04-17-4677Lxjknjjfnbmkisha Case MD Work Phone: Start: 00-46-6430Sxkskhwluswyg metabolic Jignesh Adam MD Work Phone: start: 83-17-6115Zkxcw Jignesh Adam MD Work Phone: start: 68-94-9499Jx soft tissue head & neck real time imge Isiah Adam MD Work Phone: start: 27-51-6523Jfiqn function panelScatrina Forbes MD Work Phone: Start: 40-98-7918Vtyvn dip stick/tablet rgnt auto w/o microscopySwdomenica Forbes MD Work Phone: Start: 22-96-4690Qhnya Jignesh Adam MD Work Phone: start: 23-45-5467Uywtynwp Susan Cassidy DPM Work Phone: Start: 38-35-3855Djo prim src wet mount nfct Sloan Mclean PA-C Work Phone: Start: 44-44-6761Gic lower extrem oth/thn jt w/o & w/contr matrChristopher J Princess DPM Work Phone: Start: 65-83-5615Zvqxwmqnmd examination foot 2 views Micky Lauren MD Work Phone: Start: 32-24-2808Vu soft tissue head & neck real time imge Isiah Adam MD Work Phone: start: 70-55-2611Ikxgvscyzsafq metabolic Jignesh Adam MD Work Phone: start: 77-70-8049Piyjb Jignesh Adam MD Work Phone: start: 51-36-0302VR lumbar spine wo conStart: 65-85-6086GM pre/post mri xrayStart: 23-74-3851Ngdmcyfbogp observation [Identifier] in Cervix by Cyto stainMwhz Education Work Phone: Start: 02-63-0703Vzcni dip stick/tablet reagent auto microscopyLita Weeks MD Work Phone: Start: 32-93-1425Dmxtw dip stick/tablet reagent auto microscopyLita Weeks MD Work Phone: Start: 67-89-1730Thmzxpkcmrp panelGregory Forbes MD Work Phone: Start: 39-56-2242Dmmcw dip stick/tablet rgnt auto w/o microscopyGregory Forbes MD Work Phone: Start: 48-43-5995FRLVF-19Wendabril Hull [employer]AT [employer]TER [employer]EV[employer] WHE[employer] MAKER Work Phone: Start: 70-75-0117NJGLQ-Luis E Hartman Work Phone: Start: 84-81-2143Iqfjb dip stick/tablet rgnt auto w/o microscopyRobbin Rooney Work Phone: Start: 09-16-2020 End: 88-70-3910Zjqky count complete auto&auto difrntl wbcChiain Rooney Work Phone: Start: 66-34-3618Tivliaebcjqvd rate rbc automated Robbin Rooney Work Phone: Start: 39-87-7026Cedur count complete auto&auto difrntl wbcLuis E Hartman Work Phone: Start: 02-10-5708C-reactive proteinLuis E Hartman Work Phone: Start: 03-30-7255Disdgkwawbpbs rate rbc automatedLuis E Hartman Work Phone: Start: 08-93-0998Tqeyi count complete auto&auto difrntl wbcLuis E Hartman Work Phone: Start: 98-06-5137L-reactive proteinLuis E Hartman Work Phone: Start: 91-80-8025Dqgnodjunuaxl rate rbc automatedLuis E Hartman Work Phone: Start: 05-58-6496Zkczyuz total xcpt refractometry urineSwdomenica Forbes Work Phone: Start: 50-46-1643Qtfji dip stick/tablet rgnt auto w/o microscopySwdomenica Forbes Work Phone: Start: 39-23-178458 hydroxy includes fractions if performedBilly Back Work Phone: start: 00-10-2308Kqjyfnbovhnlu metabolic panelBilly Back Work Phone: start: 25-62-2997Pttdctkyij glycosylated m9oQiuwr Back Work Phone: start: 23-75-3487Xwiuh panelBilly Back Work Phone: start: 79-56-9266Giwyjihvvtd direct measurement ldl cholesterolBilly Back Work Phone: start: 11-19-2718BBFHUIS FASTING?Felipe Back Work Phone: start: 04-51-3431P-reactive proteinNora Longthorne Work Phone: Start: 80-38-0560Ukvprbjxjc glycosylated g4aXwfgziewzx Dieudonne Harmoniani COAT [employer]TER - [employer] WHE[employer] MAKER Work Phone: Start: 58-44-2733JBDTKNY B12 & FOLATEJacqueline Dieudonne Harmoniani COAT FITTER - [employer]EV[employer] WHEEL MAKER Work Phone: Start: 72-04-3134Byqar spine cervical 4 or 5 viewsNora Longthorne Work Phone: Start: 59-54-6802Nsmyn count complete auto&auto difrntl wbcNora Longthorne COAT FITTER - [employer]EV[employer] WHE[employer] MAKER Work Phone: Start: 02-86-6133J-reactive proteinNora Longthorne COAT FITTER - [employer]EVE WHEEL MAKER Work Phone: Start: 63-24-6091Hwfsvcc serum plasma/whole blood Heather Forbes Work Phone: Start: 34-02-7547Kaxox of magnesiumSwappierce Forbes Work Phone: Start: 79-42-8075Pyqca of phosphorus inorganicHeather Forbes Work Phone: Start: 22-82-2588Elokg of urea nitrogen quantitative Heather Andrei Work Phone: Start: 15-25-8271Wuuhj count hemoglobinSwappierce Forbes Work Phone: Start: 33-47-4322Tzoewgi totalSoumyaappierce Forbes Work Phone: Start: 89-61-4307Dymlwzlaahk panelSwapna Andrei Work Phone: Start: 09-98-1262Vdndqwl total xcpt refractometry urineSwdomenica Forbes Work Phone: Start: 10-73-6669Shnmaluonr microscopic onlyHeather Forbes Work Phone: Start: 78-49-7261Dpkrb dip stick/tablet rgnt auto w/o microscopySwdomenica Forbes Work Phone: Start: 34-06-1603H-reactive proteinLuis E Hartman Work Phone: Start: 57-48-0894Zwchtsrvaexhh rate rbc automatedLuis E Hartman Work Phone: Start: 34-40-8319FXO of cervical spine without contrastExternal TranscribedStart: 10-03-2018 End: 48-12-0300Fbzpdunwriy examination of blood, cultureLuis JaureguiComment on above:Performed By: #### BC #### Unless otherwise noted, all testing performed by [facility] [address]jamirJennifer Ville [address] CLIA: [id number] Community Relations Specialist: Harshad Solano M.D.Start: 09-06-2018 End: 23-05-8928CWIG (OUTSIDE)Historical ProviderStart: 08-31-2018 End: 08-47-3868MUPG (OUTSIDE)Historical ProviderStart: 55-24-0019QK CONSULT TO HOME CARE NEEDSWAEDIN MARYtart: 35-19-6626Xvohv of magnesiumWASEEDIN MARYtart: 51-02-5338Cqrrf metabolic panel calcium totalWASEEM YESSENIAANStart: 70-46-3069Mwkcc count complete auto&auto difrntl wbcWASEEM YESSENIAANStart: 20-26-9881Yhljgnazjoqpv (pct)JV YESSENIAtart: 13-25-7344CALDCWRVK PATIENTWASEEM YESSENIAANStart: 08-25-2018 PULSE OXIMETRY, CONTINUOUSWASEEM YESSENIAANStart: 43-83-6757FHCLHD PICC LINEWASEEM YESSENIAANStart: 06-23-4794GMETLXDUMITTU NURSING CARE ORDER (SPECIFY)JV USMANrt: 56-60-3537PNV ORDER FOR WALKER OPWASEEM YESSENIAANStart: 87-20-7956TYJNJ OXIMETRY, CONTINUOUSWASEEM YESSENIAANStart: 76-77-0220LOXVKY PHYSICIAN (SPECIFY)JV APPLE Start: 63-64-5741ZCTBOKN COMMUNICATIONWASEEM YESSENIAANStart: 14-43-5206UVTTJ CANNULA OXYGENWASEEM YESSENIAANStart: 85-65-9968QSGAEGUTV SPIROMETRY RTWAEM YESSENIAtart: 94-69-4643WDDRCRGA OXYGEN THERAPY PROTOCOLWAEDIN CASAStart: 80-02-3298TWKQJ OXIMETRY, CONTINUOUSWASEEM YESSENIAANStart: 17-02-6619Eehzv of magnesiumJV APPLE Start: 33-15-6470Icccz metabolic panel calcium totalWASEEM YESSENIAANStart: 08-25-2018 Blood count complete auto&auto difrntl wbcWASEEDIN CASASANStart: 15-51-1882HENVO OXIMETRY, CONTINUOUSWASEEM KHANStart: 84-17-6802TZOYA OXIMETRY, CONTINUOUSWASEEM YESSENIAANStart: 32-80-2630LYSWI OXIMETRY, CONTINUOUSWASEEM YESSENIAANStart: 73-76-2831WMYQ GENERALWASEEM YESSENIAANStart: 99-62-7315XJ EVAL AND TREATWABRENDA MARYtart: 81-33-7287UA EVAL AND TREATWASEEDIN MARYtart: 18-81-6746SMVQM OXIMETRY, CONTINUOUSWASEEDIN MARYtart: 60-37-6923OGPLI OXIMETRY, CONTINUOUSWABRENDA APPLE Start: 84-97-6672XISSOSFQH SPIROMETRY RTWABRENDA CASASANStart: 64-88-6691VVUVCPOB OXYGEN THERAPY PROTOCOLWAEDIN MARYtart: 70-35-7323KSBWN OXIMETRY, CONTINUOUS JV YESSENIAANStart: 13-13-7998AIBG FAST CULTURE WITH SMEARBRENDA CASAStart: 57-34-7303PVNPIW STAINWAEDIN CASAStart: 46-34-4410GFTYQN CULTURETXBRENDA APPLE Start: 73-84-1966SDZQMZ CULTURETXBRENDA MARYtart: 92-78-3640CVAHB OXIMETRY, CONTINUOUSWAEDIN MARYtart: 41-19-5793Nvlnowlstfkmh (pct)JV KHtart: 46-90-7133HYSTD OXIMETRY, CONTINUOUSWAEDIN CASASANStart: 11-01-3553EDQLV CAREWAEDIN CASAStart: 25-19-3527XKNUPCHIBFEOO NURSING CARE ORDER (SPECIFY)JV APPLE Start: 40-06-3547REEZVRDX PATIENTWAEDIN MARYtart: 81-17-0665HWVFXK FOR SURGICAL PROCEDURESEDIN MARYrt: 22-85-6646OQHQYWCAA AND AEROBIC CULTUREJV APPLE Start: 73-18-6884DWDQT OXIMETRY, CONTINUOUSWABRENDA CASASANStart: 39-18-9240LASCW OXIMETRY, CONTINUOUSWABRENDA CASASANStart: 09-09-2063FQINN OXIMETRY, CONTINUOUSWABRENDA CASASANStart: 04-44-6552JA CONSULT TO IV TEAMEDIN CASAStart: 06-04-3918QHBERIETQ SPIROMETRY RTREUNION REHABILITATION HOSPITAL PEORIAEDIN MARYtart: 80-99-7854TBHVQKYT OXYGEN THERAPY PROTOCOLTXBRENDA MARYtart: 98-17-3168FHVJN OXIMETRY, CONTINUOUSWABRENDA CASASANStart: 08-23-2018 Blood count complete auto&auto difrntl wbcCURAHEALTH H[facility] [place] KHtart: 08-23-2018 Comprehensive metabolic panelWASE YESSENIAANStart: 11-44-0206Gcyfnjffhey platelet assayWASEEM KHANStart: 42-53-8228HBFNG OXIMETRY, CONTINUOUSWASEEM KHANStart: 61-29-0340DIXXF OXIMETRY, CONTINUOUSWASEEM KHANStart: 51-23-9222NKDMF OXIMETRY, CONTINUOUSWASEEM KHANStart: 54-49-7539INRJD OXIMETRY, CONTINUOUSWASEEM APPLE Start: 76-62-0467QPICH OXIMETRY, CONTINUOUSWASEEM KHANStart: 27-72-3012YRGGQJJPM SPIROMETRY RTWASEEM YESSENIAANStart: 67-43-1208VSMLEVAD OXYGEN THERAPY PROTOCOLSE USMANtart: 66-80-1003UVACW OXIMETRY, CONTINUOUSWASEEM KHANStart: 08-22-2018 Assay of magnesiumWASEEM YESSENIAANStart: 22-72-1401Bgjtg count complete auto&auto difrntl wbcSE YESSENIAANStart: 42-46-3703HMXSWQKCKJ, TROUGHSEEM YESSENIAANStart: 45-54-0974FFFYD OXIMETRY, CONTINUOUSWASEEM KHANStart: 30-97-8288AYIZB OXIMETRY, CONTINUOUSWASEEM KHANStart: 35-52-1035BKFJG OXIMETRY, CONTINUOUSWASEEM APPLE Start: 19-62-4912Xjjoyipwfthsl (pct)JV USMANtart: 24-78-8554GEBBU OXIMETRY, CONTINUOUSWASEEM KHANStart: 50-80-8134BPVVD OXIMETRY, CONTINUOUSWASEEM APPLE Start: 54-09-4186Mus lower extrem oth/thn jt w/o & w/contr matrWASEEM USMANtart: 47-71-5683OTHGOBCAK SPIROMETRY RTWASEEM YESSENIAANStart: 53-78-5921UKMBGYLV OXYGEN THERAPY PROTOCOLWASEEM YESSENIAANStart: 57-12-7253HUAZA OXIMETRY, CONTINUOUSWASEEM KHANStart: 48-16-8900Nkcfx of magnesiumWASEEM YESSENIAANStart: 03-93-6349Vzdec count complete auto&auto difrntl wbcWASEEM YESSENIAANStart: 96-59-3758QJVAT OXIMETRY, CONTINUOUSWASEEM KHANStart: 31-97-0885ABAUG OXIMETRY, CONTINUOUSWABRENDA APPLE Start: 87-14-7122PVSCA OXIMETRY, CONTINUOUSWABRENDA MARYtart: 08-20-2018 MISCELLANEOUS NURSING CARE ORDER (SPECIFY)JV MARYtart: 11-88-0997Kdble foot complete minimum 3 viewsWAEDIN MARYtart: 22-82-5307WHWXU OXIMETRY, CONTINUOUS JVMARISABEL MARYtart: 07-27-8849G-reactive proteinCURAHEALTH HOSPITAL [place] USMANtart: 08-20-2018 SEDIMENTATION RATEBRENDA MARYtart: 22-77-1259KUYAN OXIMETRY, CONTINUOUSJV MARYtart: 87-29-4172YVXQLOQCR SPIROMETRY RTREUNION REHABILITATION HOSPITAL PEORIAEDIN MARYtart: 58-69-2150VHIRSZRE OXYGEN THERAPY PROTOCOLREUNION REHABILITATION HOSPITAL PEORIAEDIN MARYtart: 37-65-6841FHURE OXIMETRY, CONTINUOUS JVMARISABEL MARYtart: 26-61-3137Hefzy of magnesiumEDIN MARYrt: 56-44-4800Ynfnc count complete auto&auto difrntl wbcEDIN MARYtart: 71-79-4426SVAAW OXIMETRY, CONTINUOUSJV MARYtart: 10-74-4547TQWTK OXIMETRY, CONTINUOUSJV APPLE Start: 02-33-2195LXRSD OXIMETRY, CONTINUOUSJV MARYtart: 33-48-8300XW CONSULT TO ORTHOPEDIC SURGERYCURAHEALTH H[facility] [place] USMANrt: 47-88-9971Nbpbfntratzqd (pct) JV MARYrt: 28-98-3973QAURO OXIMETRY, CONTINUOUSJV MARYtart: 19-95-1232Toe spinal canal cervical w/o & w/contr matrlWAEM YESSENIAANStart: 21-44-1393Ieq spinal canal lumbar w/o & w/contr matrlWAEM USMANtart: 40-62-6140Tlr spinal canal thoracic w/o & w/contr matrlWAEM USMANtart: 63-69-3551CKMPM OXIMETRY, CONTINUOUSJV MARYtart: 56-28-9675QUYAWIIEP SPIROMETRY RTREUNION REHABILITATION HOSPITAL PEORIAEDIN MARYtart: 35-60-8251ZGTVQQAQ OXYGEN THERAPY PROTOCOLREUNION REHABILITATION HOSPITAL PEORIAEDIN MARYtart: 74-39-7497BHVDS OXIMETRY, CONTINUOUSWASEEM YESSENIAANStart: 80-39-8861SA CONSULT TO IV TEAMJV MARYtart: 31-32-4013Knvyh of magnesiumJV APPLE Start: 28-77-7185Nhnrk count complete auto&auto difrntl wbcWABRENDA MARYtart: 15-09-0439HSWDZ OXIMETRY, CONTINUOUSWASEEM YESSENIAANStart: 38-79-1862QREVG OXIMETRY, CONTINUOUSWASEEM YESSENIAANStart: 56-62-4941XTNSX OXIMETRY, CONTINUOUSJV APPLE Start: 17-89-2910CKHAF OXIMETRY, CONTINUOUSWASEEM YESSENIAANStart: 01-01-6211RKERB OXIMETRY, CONTINUOUSWASEEM USMANtart: 04-38-1491NTJYKSUWU MONITORINGJV APPLE Start: 32-01-8096AHJZIRYYF SPIROMETRY RTJV MARYtart: 33-33-5947KBFVEKIN OXYGEN THERAPY PROTOCOLTXBRENDA MARYtart: 86-47-9849MKZCB OXIMETRY, CONTINUOUS JV YESSENIAANStart: 99-01-6220Aaqei of magnesiumJV MARYtart: 00-51-9863Fiwjg count complete auto&auto difrntl wbcWABRENDA MARYtart: 37-99-2468QDBUREZJPI, TROUGHWABRENDA MARYtart: 46-09-6429DWCBA OXIMETRY, CONTINUOUSWASEEDIN MARYtart: 57-66-4310HMEOS OXIMETRY, CONTINUOUSWASEEM YESSENIAANStart: 02-00-2139TBVWY OXIMETRY, CONTINUOUSWASEEM YESSENIAANStart: 23-47-2957Ouvymbapgwkbx (pct)JV KHANStart: 41-98-9822RUCNN OXIMETRY, CONTINUOUSWASEEM YESSENIAANStart: 25-35-2779FTAEXEN BLOOD #1 JVMARISABEL MARYtart: 69-96-9595HCRQI OXIMETRY, CONTINUOUSWASEEM YESSENIAANStart: 89-54-1840Noin tthrc r-t 2d w/wom-mode compl spec&colr dWASEEDIN AMRYtart: 41-43-8961WLUAEKVVZ SPIROMETRY RTTXBRENDA MARYtart: 02-15-9091PXWZBXBY OXYGEN THERAPY PROTOCOLREUNION REHABILITATION HOSPITAL PEORIAEDIN MARYtart: 84-71-4630ZEEQT OXIMETRY, CONTINUOUSWASEEM YESSENIAANStart: 82-92-7491Azxrx of magnesiumWASEEM USMANtart: 27-26-6626Lgjto count complete auto&auto difrntl wbcWASEEM USMANtart: 56-90-9283R-reactive protein JV USMANtart: 14-17-7587MUAIFNZYACDUK RATEWASEEM USMANtart: 76-75-9386MUEYR OXIMETRY, CONTINUOUSWASEEM KHANStart: 40-80-2637Muxu tthrc r-t 2d w/wom-mode compl spec&colr dWASEEM YESSENIAANStart: 36-31-3188BUSGN OXIMETRY, CONTINUOUSWASEEM YESSENIAANStart: 94-42-0762RYZBD OXIMETRY, CONTINUOUSWASEEM YESSENIAANStart: 58-76-9640LJIVQ OXIMETRY, CONTINUOUSWASEEM YESSENIAANStart: 20-15-5993PUZQV OXIMETRY, CONTINUOUS JV YESSENIAANStart: 46-76-3963Qpp-scan xtr veins complete bilateral studyWASE YESSENIAtart: 94-03-1446Zucd tthrc r-t 2d w/wom-mode compl spec&colr dWMITCHEL APPLE Start: 35-68-5300Rs head/brain w/o contrast materialWACURAHEALTH HOSPITAL [place] YESSENIAtart: 08-16-2018 Radiologic exam chest 2 viewsCURAHEALTH H[facility] [place] YESSENIArt: 07-39-5573KHVYSIZPF SPIROMETRY RT JV USMANrt: 66-83-6449XUUKTNYL OXYGEN THERAPY PROTOCOLCURAHEALTH H[facility]ITAL [place]rt: 98-01-0324KKLSC OXIMETRY, CONTINUOUSWASEEM YESSENIAANStart: 99-22-3501RIUVBRV ISOLATIONWASE USMANtart: 37-95-9020Uryhv of lactateWASEEM YESSENIAtart: 19-52-7895OZDKZNT, IONIZEDWASEEM YESSENIAtart: 15-76-5348UO CONSULT TO IV TEAM JVMARISABEL MARYrt: 59-35-0976Wkgkm of magnesiumWASEEM USMANtart: 46-70-8650Kvczx count complete auto&auto difrntl wbcCURAHEALTH H[facility] [place]rt: 78-20-0100Ltysbuzgyhr time JV USMANtart: 28-47-0845DORIE OXIMETRY, CONTINUOUSWACURAHEALTH [facility] [place]ESSENIAtart: 15-10-2347NJLOU WEIGHTSWACURAHEALTH [facility] [place]ENIAtart: 82-34-4713OAIBU OXIMETRY, CONTINUOUS JV YESSENIAANStart: 52-27-0335VNO 12-LEADWACURAHEALTH [facility] [place] USMANtart: 59-38-8828Msmrf of lactateCURAHEALTH [facility] [place] YESSENIAtart: 32-71-1809Fixqbzqv I.cardiac mass concHARBORVIEW MEDICAL CENTERtart: 40-61-5418CLQXQ OXIMETRY, CONTINUOUSWAEM tart: 35-45-3377OBGBEXKN RT PROTOCOLTEXAS COUNTY MEMORIAL HOSPITALrt: 14-38-4457HGFHJNQNIM ANTIGEN, URINETEXAS COUNTY MEMORIAL HOSPITALrt: 05-59-9188OVNDT PNEUMONIAE ANTIGENTEXAS COUNTY MEMORIAL HOSPITALrt: 58-23-5694UC CONSULT TO NEUROLOGYST. LOUIS BEHAVIORAL MEDICINE INSTITUTErt: 51-99-4708Ytpwv of lactateHARBORVIEW MEDICAL CENTERREYESrt: 21-76-1188Xzlijgm bacterial blood aerobic w/id isolatesTEXAS COUNTY MEMORIAL HOSPITALrt: 69-41-1659QVNUEQG BLOOD #1TEXAS COUNTY [facility]ORIAL HOSPITALtart: 34-80-5554PDUOMFGEED PNEUMONIAE ANTIBODY, IGMTEXAS COUNTY MEMORIAL HOSPITALrt: 53-37-6363Mphxjejqzjvwp (pct)JV KHrt: 03-85-7392Suftvnxz I.cardiac mass concHARBORVIEW MEDICAL CENTERrt: 80-99-8994DZIVCUPP PRIVILEGES WITH ASSISTANCEST. LOUIS BEHAVIORAL MEDICINE INSTITUTErt: 67-20-6731ZIJOPAFZG MONITORINGMISSOURI SOUTHERN HEALTHCARErt: 41-56-6437Pbd bact xcpt urine blood/stool aerobic isolLINDSA[facility] [place] Start: 20-16-0911SKRYAGNXY DEEP BREATHING AND COUGHINGTEXAS COUNTY MEMORIAL HOSPITALrt: 62-32-6496AGJA CODEWATEXAS COUNTY MEMORIAL HOSPITALREYESrt: 25-08-9600EUHFPCLYZ SPIROMETRY RTST. LOUIS BEHAVIORAL MEDICINE INSTITUTErt: 97-54-5011HWBXQJLX OXYGEN THERAPY PROTOCOLST. LOUIS BEHAVIORAL MEDICINE INSTITUTErt: 97-17-8085DSDAFW AND OUTPUTMISSOURI SOUTHERN HEALTHCAREtart: 92-52-6578WY CONSULT TO INFECTIOUS DISEASESSt. John of God Hospitalrt: 83-26-3516Rkgeuqcuvek observation Gram stain Nom (Unsp spec)JV MARYrt: 52-88-6159FVLGWB PHYSICIAN (SPECIFY)JV MARYrt: 61-30-9998UOEZLNQI TO DOSE VANCOMYCINWASEEM USMANrt: 21-53-1017OXNSB INTERMITTENT PNEUMATIC COMPRESSION DEVICEWASEEM YESSENIArt: 71-05-6906CIACN OXIMETRY, CONTINUOUSWASEEM USMANrt: 61-00-4856QXUVG SIGNSWACURAHE[facility] [place] USMANrt: 78-94-0006ANPUKKK STATUS (DIRECT)JV MARYrt: 66-04-0025LhfuvvffnspWykzc Back Work Phone: start: 57-07-8307Abjmvmaxiqt observation [Identifier] in Cervix by Cyto Armani Casas Plan of Treatment DateCare ActivityDetailAuthorStart: 16-64-7486Jkaur panelLipidsBon Green Cross HospitalStart: 45-04-9082Bfemw panelLipWythe County Community HospitalStart: 46-21-8074Smtnccfw Vaccine (1 of 2)Shingles Vaccine (1 of 2)[place] Start: 72-75-1917Fqoin panelLipidsBON SECOURS DEPAUL MEDICAL CENTERStart: 12-10-2027 Screening for malignant neoplasm of colonBon Green Cross HospitalStart: 80-37-3071Ggnuz panelLipidsBon Secours St. Mary's Hospitalart: 80-98-9690Knhgqukgz for malignant neoplasm of breastBreast cancer screenBon [facility] Start: 91-37-9701RJS test (Diabetes, CKD 3-4, OR last GFR 15-59)GFR test (Diabetes, CKD 3-4, OR last GFR 15-59)[facility]: 06-12-2026 GFR test (Diabetes, CKD 3-4, OR last GFR 15-59)GFR test (Diabetes, CKD 3-4, OR last GFR 15-59)[facility] HospitalStart: 72-96-0845QJU test (Diabetes, CKD 3-4, OR last GFR 15-59)GFR test (Diabetes, CKD 3-4, OR last GFR 15-59)[facility] [place]art: 86-72-6058Ktsxg panelMount Carmel Health System HealthStart: 65-04-8293DOA test (Diabetes, CKD 3-4, OR last GFR 15-59)GFR test (Diabetes, CKD 3-4, OR last GFR 15-59)[facility] HospitalStart: 65-43-1956Bxovxvghbt A1c measurement A1C test (Diabetic or Prediabetic)[facility] HospitalStart: 04-80-4053AOX test (Diabetes, CKD 3-4, OR last GFR 15-59)GFR test (Diabetes, CKD 3-4, OR last GFR 15-59)[facility] HospitalStart: 04-22-9205Ayfcguijhu Monitoring Depression MonitoringVcu Health Community Memorial HospitalStart: 43-25-6111LSX test (Diabetes, CKD 3-4, OR last GFR 15-59)GFR test (Diabetes, CKD 3-4, OR last GFR 15-59)[facility] HospitalStart: 99-74-1784Jvagkfmxkq A1c mbijzayokrlF1L test (Diabetic or Prediabetic)[facility] HospitalStart: 10-12-2025 End: 58-87-6791Fvfhxxj encounter mimbrfonh65/08/2026 10:30 AM EST Office Visit [facility] [address] [place] [address] [place] [address] Dimas Adair MD [address] [place] [address] [phone] [facility] Throat PhysiciansStart: 10-11-2025 End: 44-95-3201ZN Head and neck soft tissueUS Soft Tissue Neck Imaging Routine Thyroid nodule Expected: 10/11/2025, Expires: 10/11/2026[facility] Work Phone: Comment on above:Expected: 10/11/2025, Expires: 10/11/2026Start: 08-23-2025 End: 21-76-6849Ilojgdl encounter lpjeifphh73/19/2025 1:00 PM EST Office Visit [facility] [address] [place] [address] Jennie Van APRN-SLEEVE WHEEL MAKER [address] [place] [address] [facility] NeurologyStart: 07-27-2025 End: 13-99-8459Kthdkvu encounter hpudltzsy79/23/2025 11:00 AM EDT Office Visit [facility] [address] [facility], [phone] Felipe Adam MD [address] [place] [address] Return in about 3 months (around 07/19/2025).[facility] CenterComhavenwyck hospital on above:Return in about 3 months (around 07/19/2025).Start: 63-50-4960KBTUT-19 Vaccine ( season)COVID-19 Vaccine ()Denton Rahman [facility] HospitalStart: 05-31-2025 End: 08-10-2613IE Cervical spine 4 or 5 ViewsXR cervical spine complete 4 to 5 views Imaging Routine Cervical paraspinal muscle spasm Expected: 05/31/2025, Expires: 05/24/2026[facility] Work Phone: Comment on above:Expected: 05/31/2025, Expires: 05/24/2026Start: 26-37-6929Utesy panelConroe, KYStart: 05-24-2025 End: 91-38-4474Knjaizw encounter hikpowvnm93/20/2025 11:30 AM EDT Office Visit [facility] [address] [place] [address] Jennie Van, COAT FITTER-SLEEVE WHEEL MAKER [address] [place] [address] [facility] NeurologyStart: 05-17-2025 End: 03-58-1110Neqmezc encounter unncjofhz72/13/2025 1:20 PM EDT Office Visit [facility] [address] [place] [address] Trace Casas MD [address] [facility] [address] [place], [place] [phone] [facility]: 05-15-2025 End: 01-48-3993Svdbtov encounter izcisebih89/11/2025 1:15 PM EDT Office Visit [facility] [address] [place] [address] Felipe Adam MD [address] [place] [address] Return in about 6 months (around 05/15/2025).[facility] CenterComhavenwyck hospital on above:Return in about 6 months (around 05/15/2025).Start: 07-00-3253WRL test (Diabetes, CKD 3-4, OR last GFR 15-59)GFR test (Diabetes, CKD 3-4, OR last GFR 15-59)[facility]: 99-45-7682Zvqahwxqt vaccinationBon [facility]: 05-02-2025 Hemoglobin A1c hkrgptmiwelT1H test (Diabetic or Prediabetic)[facility]: 05-02-2025 End: 70-62-7334Kjrnfhq encounter evxdsxbfg07/29/2025 2:00 PM EDT Office Visit [facility] B [address] [facility] [address] [place] [phone] Fozia Meng, MANAGER SUPPLY CHAIN PLANNING [address], [facility] [address] [place] [phone] [facility] BStart: 05-01-2025 End: 21-64-5672Ywkgnck encounter imhhfaici78/28/2025 4:00 PM EDT Office Visit [facility] [address] [facility] [place] [place] [phone] Robbin Sánchez, DPM [address] [place] [address] [facility]ODIATRYStart: 04-20-2025 End: 11-54-5711Khdmuzf encounter /17/2025 12:45 PM EDT Office Visit [facility] [address] [place] [phone] Robbin Sánchez DPM [address] [place] [address] ArrivedNOMS WWW PODIATRYComment on above:ArrivedStart: 04-06-2025 End: 03-62-3648Iwangjt encounter wtxezmzmk12/03/2025 4:30 PM EDT Office Visit [facility] [address] [place] [address] Robbin Sánchez DPM [address] [place] [address] ArrivedNOMS WWW PODIATRYComment on above:ArrivedStart: 04-06-2025 End: 75-35-6628Vlucrckcmg [Mass/volume] in Serum or PlasmaCreatinine, Serum Lab Routine Right foot pain Expected: 04/06/2025 (Approximate), Expires: 04/06/2026 [facility] HealthcareComment on above:Expected: 04/06/2025 (Approximate), Expires: 04/06/2026Start: 04-06-2025 End: 19-96-1421CE Foot - right WO and W contrast IVMR foot right w and wo IV contrast Imaging STAT Right foot pain Expected: 04/06/2025, Expires: 04/06/2026 [facility] Work Phone: comment on above:Expected: 04/06/2025, Expires: 04/06/2026Start: 03-14-2025 End: 20-89-8821Inmfkes encounter procedureNOMS [facility] NEUR BStart: 02-13-2025 End: 22-28-9824Xpczwzv encounter yhsbgsslg85/12/2025 1:00 PM EDT Office Visit [facility] [address] [facility] [address] [place] [address] Trace Casas MD [address] [facility] [address] [address] [facility] NEURStart: 02-14-7401Hrgfcviybo MonitoringDepression MonitoringBON MERCY MEMORIAL HOSPITALStart: 11-15-2024 End: 66-89-1348Iavepyq encounter lbuokawsm44/11/2025 2:45 PM EST Office Visit [address] [address] Felipe Adam MD [address] [place] [address] 6 [facility]Comhaven[facility] on above:6 moStart: 11-14-2024 End: 82-95-8534Ooqvzlv encounter procedureNOMS [facility] NEURComment on above:Arrived Start: 11-11-2024 End: 61-67-7683Gurnrfw encounter hnarxyhgs65/07/2025 1:00 PM EST Office Visit [address] [address] Felipe Adam MD [address] [place] [address] 6 [facility] CenterComhaven[facility]ck hospital on above:6 moStart: 12-47-2047Mlnplbfrc for malignant neoplasm of cervixBON SECOURS DEPAUL MEDICAL CENTERStart: 09-14-2024 End: 50-52-4604Sllxyng encounter /11/2024 11:20 AM EST Office Visit [facility] [address] [facility] [address] [place] [address] Fozia Meng MANAGER SUPPLY CHAIN PLANNING [address], [facility] [address] [place] [phone] ArrivedNOMS [facility] NEURComment on above: ArrivedStart: 71-80-3886SUjI/Tdap/Td vaccine (2 - Td or Tdap)DTaP/Tdap/Td vaccine (2 - Td or Tdap)[facility]: 46-25-5918TYeS/Tdap/Td vaccine (2 - Td)DTaP/Tdap/Td vaccine (2 - Td)[facility] [place]Start: 55-59-8667Eqjiuzv vaccinationOhioUniversity Hospitals Geneva Medical CenterStart: 09-05-2024 End: 77-14-4475Fttbhaz encounter txilneoiq64/02/2024 1:00 PM EST Office Visit [facility] [address] [facility] [address] [place] [address] Trace Casas MD [address] [place] [address] [facility] NEURStart: 08-18-2024 End: 96-53-3131Hixfiqy encounter teubfnjev49/14/2024 1:30 PM EST Office Visit [facility] Urology [address] Specialty [place] [address] Luis Mclean, PA-C [address] [facility] [address] [place] [address] 1 yr med [facility]MAult[facility] UrologyComment on above:1 yr med chkStart: 08-02-2024 End: 57-61-2049Czonvjl encounter jzggqdveb90/29/2024 10:45 AM EDT Office Visit [facility] [address] [place] [address] Cheryl Miles DO [address] [place] [address] [facility]LEX[facility]DR[facility] NEUROStart: 07-11-2024 End: 22-15-9944Akmraduqmpco consultation with krbwyji3407/11/2024 11:30 AM EDT Telemedicine [facility] [address] [place] [address] Janel Allen MANAGER SUPPLY CHAIN PLANNING [address] [place] [address] [facility] NEURO 210Start: 06-10-2024 End: 99-33-8472Chawfur encounter rgznjfpke85/06/2024 10:20 AM EDT Office Visit [facility] [address] [facility] [address] [place] [address] Trace Casas MD [address], [place] [phone] ArrivedNOMS [facility] NEURComment on above: ArrivedStart: 09-16-4031FNLJS-19 Vaccine ( season)COVID-19 Vaccine ( season)[facility] HospitalStart: 79-11-0348JJNWL-19 Vaccine ( season)COVID-19 Vaccine ( season)[facility]Start: 06-05-2024 Influenza vaccinationInfluenza Vaccine (#1)[facility]HealthStart: 56-32-6366Ocuzszykx for malignant neoplasm of colonBon [facility] HospitalStart: 59-94-8971NON test (Diabetes, CKD 3-4, OR last GFR 15-59)GFR test (Diabetes, CKD 3-4, OR last GFR 15-59)[facility]ITALStart: 44-56-1822Pxzgyixu screenDiabetes screen [facility]Start: 05-12-2024 End: 79-29-3550Koijbdr encounter tzafgjmdr10/08/2024 11:00 AM EDT Office Visit [facility] Part of [address] [address] Lina Echols MD [address] [facility] [address] [place] [address] BUCK (obstructive sleep apnea)[facility] OUTREACH PULM Part of [facility]walk HospitalComment on above: BUCK (obstructive sleep apnea)Start: 56-31-8325Rrnln panelLipid screenWestern Reserve Hospital, [place]Start: 03-62-5677Qnivq screenLipid [facility], [place] Start: 50-12-4736Fctoevlzm vaccinationFlu vaccine (#1)[facility] Start: 53-21-0214Ssyqhpystf MonitoringDepression MonitoringBON [facility] Clinicart: 92-57-7177PYY test (Diabetes, CKD 3-4, OR last GFR 15-59)GFR test (Diabetes, CKD 3-4, OR last GFR 15-59)[facility] Hospitalart: 02-06-2024 Hemoglobin A1c huaadzzckjlI2R test (Diabetic or Prediabetic)[facility] Hospitalart: 08-13-2023 End: 65-62-4594Odxxgnf encounter procedureMercy Health Lorain Hospitalard UrologyStart: 06-22-2023 End: 30-84-0443Prpvdja encounter cgetrfarh14/18/2023 11:15 AM EDT Office Visit [address] Felipe Adam MD [address] [place] [address] [facility]: 06-05-2023 Influenza vaccinationSequential Influenza Vaccine (Season Ended)[facility]Start: 82-95-4857Kkhgzedhh vaccinationBON [facility] Clinicart: 04-14-2023 End: 56-54-1421Nomosrj encounter qfvebzupy43/11/2023 Office Visit Family Medicine Felipe Adma MD [address] [place] [address] [facility]: 62-57-1528Blkxyypnqo A1c pailmnvysbqO6A test (Diabetic or Prediabetic)[facility]: 75-94-9639Jngakizyod MonitoringDepression MonitoringBON [facility] Start: 28-41-5122Cjabjoa and physical examination, annual for health maintenance Wellness VisitOhioHealthStart: 12-25-2022 End: 04-55-2379Mvumzfm encounter gslhtofux36/23/2023 Office Visit Infectious Diseases Dav Hratman MD [address] [facility] [address] [place] [address] [facility].Start: 95-44-4565Hyuwfxnf screenDiabetes screenWestern Reserve Hospital, [place]Start: 08-07-2022 End: 48-89-0278Lyevhkf encounter fnrflovnw71/03/2022 Office Visit Urology Luis Mclean, PA-C [address] [facility] [address] [address] [facility] UrologyStart: 07-15-2022 End: 04-13-3239Hmvyyuf evaluation of patient and htdasn9407/15/2022 Nurse Only Family MedicineMer [facility] Care [facility] HospitalStart: 07-09-2022 End: 74-31-7987Dssxbxu encounter cfmgdmake19/05/2022 Appointment IP Unit Samantha Lino RD, LD [facility] Diet and NutritionStart: 06-05-2022 Influenza vaccinationMount Carmel Health System HealthStart: 90-87-7254Mpohpmdcdg measurementMount Carmel Health System HealthStart: 76-98-2493Cplsshctw [Moles/volume] in Serum or PlasmaPotassiumMount Carmel Health System HealthStart: 42-02-7532Gykcxzpcf monitoringPotassium monitoringMount Carmel Health System Health Start: 93-49-1253Tdavpgtvnb measurementCreatinine monitoringMer Health Work Phone: start: 13-86-0783Dzwsfregi monitoringPotassium monitoringMount Carmel Health System Health Work Phone: start: 11-60-7894Jndfnlfys vaccinationFlu vaccine (#1) [facility]ENTERStart: 87-35-7618Krvstrlaj for malignant neoplasm of cervixOhioHealthStart: 02-05-2022 End: 36-07-7646Fcymwbw encounter abyqopoow05/04/2022 Appointment Physical Therapy Christel Donohue PTMWHZ Physical TherapyStart: 02-03-2022 End: 49-40-6353Tsavjmc encounter procedureBETTYE Physical TherapyStart: 01-30-2022 End: 08-40-0631Ixmbfpl encounter procedureOhiohealth Grove [facility] UrologyStart: 01-29-2022 End: 58-43-5052Rnxsyha encounter zgdkszvef70/27/2022 Appointment Physical Therapy Beverly Rangel PTAMWHZ Physical TherapyStart: 01-27-2022 End: 69-01-1273Sneuusa encounter dmgmgagsk42/25/2022 Appointment Physical Therapy Christel Donohue PTMWHZ Physical TherapyStart: 01-24-2022 End: 14-40-3240Zubzmxv encounter hghbmfxid37/22/2022 Appointment Physical Therapy Vanessa Garcia PTMWHZ Physical TherapyStart: 01-22-2022 End: 47-48-3562Mdzunzz encounter czouzhzkw61/20/2022 Appointment Physical Therapy Beverly Rangel PTAMWHZ Physical TherapyStart: 01-17-2022 End: 16-31-8692Zlqdwun encounter elvwxnvkh02/15/2022 Appointment Physical Therapy Beverly Rangel PTAMWHZ Physical TherapyStart: 01-10-2022 End: 99-82-1687Kxmnqis encounter wxjewrcgb45/08/2022 Appointment Physical Therapy Christel Donohue PTMWHZ Physical TherapyStart: 01-08-2022 End: 97-18-7161Obukcba encounter dffggnfxy89/06/2022 Appointment Physical Therapy Beverly Rangel PTAMWHZ Physical TherapyStart: 01-02-2022 End: 92-11-1850Aupixkf encounter /31/2022 Appointment Occupational Therapy Judi Marie OTA [address] [place] [address] MWHZ Occupational TherapyStart: 01-60-7179Ewhlhcen screenDiabetes screen [facility], [place]Start: 12-31-2021 End: 21-12-0341Imyboap encounter procedureMWHZ Physical TherapyStart: 12-30-2021 End: 87-26-5287Kttxvaf encounter jhtkjopwv04/28/2022 Appointment Occupational Therapy Cheryl Herman OTMWHZ Occupational TherapyStart: 12-27-2021 End: 18-17-5012Iqihgno encounter hqllodxgq55/25/2022 Appointment Occupational Therapy Eve Gaspar OTAMWHZ Occupational TherapyStart: 11-14-2021 End: 42-00-3471Rzwyflz encounter qkczhrhit01/10/2022 Office Visit Family Felipe Banerjee MD [address] [place] [address] [facility] CenterStart: 84-34-6653Rctnbyqczx MonitoringDepression MonitoringMercy Health Fairfield HospitalCventStart: 72-26-5150Rihpaajdzk measurementCreatinine monitoringMercy Health Fairfield HospitalCvent Work Phone: start: 07-60-3456Fglqvrvzy monitoringPotassium monitoringMercy Health Fairfield HospitalCvent Work Phone: start: 08-01-2021 End: 42-84-4018Lsxbljz encounter alcbzdtkr03/28/2021 Office Visit Urology Lita Weeks MD [address] [place] [address], [place] [address] [phone] [facility]eter [facility] UrologyStart: 06-05-2021 Influenza vaccinationMer HealthStart: 00-22-2750Ykoupfgbzz measurement Creatinine SciQuestMercy Health Fairfield HospitalGetApp, [place]Start: 90-26-2121SfP1e (Bld) [Mass fraction]A1C test (Diabetic or Prediabetic)[place]ia, BizzingoStart: 05-25-2021 Hemoglobin A1c njnuytkcjkvK1Y test (Diabetic or Prediabetic)[employer] Phone: start: 02-55-3898Qskfhhsnn monitoringPotassium SciQuestMercy Health Fairfield HospitalGetApp, [place]Start: 11-13-2020 End: 09-48-6588Nhvjac Visit11/13/2020 Office Visit Family Felipe Banerjee MD [address] [place] [address] [phone] [facility] Medical CenterStmineral: 45-51-9510Unadrhpxs monitoringPotassium [facility]: 10-23-2020 End: 72-96-8367Mmlmin Visit10/23/2020 Office Visit Infectious Diseases Dav Hartman MD [address] [facility]. [address] [place] [address] [phone] [facility], IncStart: 20-52-4888KbH8u (Bld) [Mass fraction]A1C test (Diabetic or Prediabetic)[facility]: 85-23-0596Zgqynntejn measurementCreatinine [facility]: 39-32-4142Bjtiuuvzxp monitoringCreatinine [facility]: 43-39-7227Lbwypcdka monitoringPotassium [facility]: 06-12-2020 End: 41-05-2149Ecxkwy Visit06/12/2020 Office Visit Infectious Diseases Dav Hartman MD [address] [facility]. [address] [place] [address] [phone] [facility], IncStart: 02-90-8295Yersqlezn vaccinationFlu vaccine (#1)[facility]: 01-29-8344Agcabcoy cancer screenCervical cancer screenUniversity Hospitals Lake [facility]: 93-66-6890Wbduhckov for malignant neoplasm of cervixOhioHealthStart: 11-01-2019 End: 23-66-1194Cuelgd Visit11/01/2019 Office Visit Infectious Diseases Dav Hartman MD [address] [facility]. [address] [place] [address] [phone] [facility], IncStart: 07-28-2019 End: 83-12-0838Pgfcsc Visit07/28/2019 Office Visit Infectious Dav Beaver MD [address] [place] [address] [phone] [facility].Start: 06-27-2019 End: 80-63-2125Vdaxu Only06/27/2019 Nurse Only Family [facility] CenterStart: 26-74-3213Xxxalmbha vaccinationFlu vaccine (#1)[place], [place]Start: 88-59-9880Jnckjcjft vaccination givenSEQUENTIAL INFLUENZA VACCINE (Season Ended)[facility]Start: 08-47-0809Wggkpwyge for malignant neoplasm of breastVan Wert County HospitalStart: 70-63-1933Dmfmlcdot vaccinationINFLUENZA VACCINE (#1)[facility] Work Phone: Start: 03-23-2018 End: 62-14-1490PlkgncjzgkKatkErsntl Primary Care Women HealthStart: 2009 Screening for malignant neoplasm of cervixHPV (without or with Pap)[facility]ITALStart: 61-07-7140Rsrvityjo for malignant neoplasm of cervixPAP SMEAR [facility] Work Phone: Start: 83-25-2184Hhncbsqsf B vaccine (1 of 3 - 19+ 3- dose series)Hepatitis B vaccine (1 of 3 - 19+ 3-dose series)[facility] HospitalStart: 54-50-3484Lqjxn diphtheria, tetanus and acellular pertussis (DTaP) vaccinationTDAP (ADULT)[facility] Work Phone: Start: 53-33-5176Yjvzcjytx C screeningHepatitis C ScreeningVan Wert County HospitalStart: 53-98-4404Oakksno vaccinationTETANMercy Health [facility]ain Hospital Work Phone: Start: 17-03-0316ZUEMM-19 Vaccine (1)COVID-19 Vaccine (1)[facility] Work Phone: start: 81-95-0124RUS screenHIV [facility] Hospitalart: 85-51-1467SJZ screeningHIV screenKnox Community HospitalStart: 04-87-7864ZBF screeningHIV SCREENING [facility] Work Phone: Start: 17-03-4209RWDAN-19 Vaccine (1)COVID-19 Vaccine (1)[facility] Search [employer] [facility] Phone: start: 40-07-7719Naznrdvbvt MonitoringDepression MonitoringKnox Community HospitalStart: 12-11-5992Ryepehhfho screening using PHQ-9 (Patient Health Questionnaire 9) scoreOhHealthStart: 66-43-0489Xsczx screening for proteinUrine MicroalbuminMeioHealthStart: 07-01-2296Szwhtyhqrlls Vaccine: Ped or At-Risk (1 - PCV)Pneumococcal Vaccine: Ped or At-Risk (1 - PCV)[facility] HospitalStart: 95-02-6282DRIHO-19 Vaccine (1)COVID-19 Vaccine (1)[facility] HospitalStart: 1982 History and physical examination, annual for [facility] Visit WashingtonHealthStart: 30-90-3897GGZLV-19 Vaccine (#1)COVID-19 Vaccine (#1)[facility]ENTERStart: 56-92-0765Fvsrcqgri B vaccine (1 of 3 - 3-dose series) Hepatitis B vaccine (1 of 3 - 3-dose series)[facility]ENTERStart: 33-05-9317Thanhsfbi for malignant neoplasm of colonVan Wert County Hospital End: 77-57-6385VPQAD-19COVID-19 Lab Routine Suspected COVID-19 virus infection 1 Occurrences starting 02/13/2021 until 02/13/2021[facility] Search [employer] Work Phone: comment on above:1 Occurrences starting 02/13/2021 until 1260UJLHF-22NLIUL-93 Lab Routine Suspected COVID-19 virus infection 02/13/2021 3:06 PM [facility] [employer] Work Phone: End: 75-67-0437XYUFO-19 AmbulatoryCOVID-19 Ambulatory Lab Routine SOB (shortness of breath) 1 Occurrences starting 08/08/2020 until 08/08/2020[facility] [employer] [place], [place]Comment on above:1 Occurrences starting 08/08/2020 until 08/08/2020COVID-19 AmbulatoryCOVID-19 Ambulatory Lab Routine SOB (shortness of breath) 08/08/2020 4:[address] [facility] [place] End: 43-23-0210Tomeyktuzu [Mass/volume] in UrineCreatinine, Random Urine Lab Routine Once for 1 Occurrences starting 05/20/2021 until 05/20/2021[facility] HospitalSharesVault Phone: comment on above:Once for 1 Occurrences starting 05/20/2021 until 05/20/2021reatinine [Mass/volume] in UrineCreatinine, Random Urine Lab Routine 05/20/2021 7:57 PM [facility] Phone: End: 37-51-9049Ubhvuri, UrineCulture, Urine Microbiology Routine Acute cystitis with hematuria 1 Occurrences starting 04/13/2021until 04/13/2021[facility] HospitalSharesVault Phone: comdaji on above:1 Occurrences starting 04/13/2021 until 1Culture, UrineMercy Health Fairfield HospitalSharesVault Phone: End: 67-56-4541Cbbssva, UrineCulture, Urine Microbiology Routine Difficult or painful urination 1 Occurrences starting 05/27/2021 until 05/27/2021[facility] HospitalSharesVault Phone: comditt on above:1 Occurrences starting 05/27/2021 until 05/27/2021 End: 69-50-3631Vhbwscl, UrineCulture, Urine Microbiology Routine Acute cystitis with hematuria Recurrent UTI 1 Occurrences starting 06/11/2021 until 06/11/2021 [facility] [employer]Light Phone: comment on above:1 Occurrences starting 06/11/2021 until 06/11/2021 End: 13-32-7713Cjstyoi, UrineCulture, Urine Microbiology Routine Frequent UTI Urinary urgency Urinary frequency 1 Occurrences starting 07/11/2021 until 07/11/2021[facility] [facility] Phone: Comment on above:1 Occurrences starting 07/11/2021 until 07/11/2021 End: 29-82-9484Vcbdipu, UrineCulture, Urine Microbiology Routine Frequent UTI Urinary urgency Urinary frequency 1 Occurrences starting 08/01/2021 until 08/01/2021[facility]: comment on above:1 Occurrences starting 08/01/2021 until 08/01/2021 End: 29-84-8380Oidnofi, UrineCulture, Urine Microbiology Routine Acute cystitis with hematuria 1 Occurrences starting 04/28/2022until 04/28/2022ON Lysanda Work Phone: comment on above:1 Occurrences starting 04/28/2022 until 04/28/2022 End: 42-12-5467Cjwxpqt, UrineBON Tripbod Phone: comment on above:1 Occurrences starting 02/05/2023 until 02/05/2023 End: 32-12-4996Zpxhlcn, Wound (with Gram Stain)Bon BrightkitComment on above:One Time for 1 Occurrences starting 04/04/2025 until 04/04/2025 End: 81-61-3613YUJ Breast - bilateral screeningBon BrightkitComment on above:1 Occurrences starting 02/15/2025 until 02/15/2025 End: 24-61-1195Ukehgmymia A1c/Hemoglobin.total in BloodBON Lysanda Work Phone: comment on above:1 Occurrences starting 04/12/2022 until 04/12/2022 End: 31-86-8678Tjzxuwrtnk A1c/Hemoglobin.total in BloodBambeco Phone: Comment on above:Once for 1 Occurrences starting 02/05/2023 until 02/05/2023 End: 26-19-9620Qrgf [facility] Routine One Time for 1 Occurrences starting 08/29/2019 until 08/29/2019[facility], [place] Comment on above:One Time for 1 Occurrences starting 08/29/2019 until 08/29/2019 End: 53-14-0953Gbvsqdfvqqmcr Acid, SerumMethylmalonic Acid, Serum Lab Routine Once for 1 Occurrences starting 09/24/2019 until 09/24/2019[facility] Phone: comvucy on above:Once for 1 Occurrences starting 09/24/2019 until 09/24/2019Methylmalonic Acid, SerumMethylmalonic Acid, Serum Lab Routine 09/24/2019 9:33 AM Kik Phone: End: 72-27-8468Buasfxa Ab [Titer] in Serum by ImmunofluorescenceANA Lab Routine Once for 1 Occurrences starting 09/24/2019 until 09/24/2019[facility] Phone: comiszn on above:Once for 1 Occurrences starting 09/24/2019 until 09/24/2019Nuclear Ab [Titer] in Serum by ImmunofluorescenceANA Lab Routine 09/24/2019 9:33 AM Kik Phone: End: 89-50-4311Bhgdjug, urine, randomProtein, urine, random Lab Routine Once for 1 Occurrences starting 05/20/2021 until 05/20/2021[facility] Phone: comwcqa on above:Once for 1 Occurrences starting 05/20/2021 until 1Protein, urine, randomProtein, urine, random Lab Routine 05/20/2021 7:57 PM Qwikwire Phone: End: 51-09-3104Ntpatzkzwhbxq RateSedimentation Rate Lab Routine MRSA (methicillin resistant Staphylococcus aureus) septicemia ([facility]) 1 Occurrences starting 12/14/2019 until 12/14/2019[facility] HospitalInstallFree TNComment on above:1 Occurrences starting 12/14/2019 until 12/14/2019Sedimentation RateSedimentation Rate Lab Routine MRSA (methicillin resistant Staphylococcus aureus) septicemia (HCC) 12/14/2019 12:39 PM [place] End: 76-27-9023Hirenrvx syndrome-A extractable nuclear antibodySjogrens syndrome-A extractable nuclear antibody Lab Routine Once for 1 Occurrences starting 09/24/2019 until 09/24/2019X-IO Phone: comment on above:Once for 1 Occurrences starting 09/24/2019 until 09/24/2019Sjogrens syndrome-A extractable nuclear antibody Sjogrens syndrome-A extractable nuclear antibody Lab Routine 09/24/2019 9:33 AM Kik Phone: End: 88-63-0771Tyghvzkb syndrome-B extractable nuclear antibodySjogrens syndrome-B extractable nuclear antibody Lab Routine Once for 1 Occurrences starting 09/24/2019 until 09/24/2019[employer] Phone: comment on above:Once for 1 Occurrences starting 09/24/2019 until 09/24/2019Sjogrens syndrome-B extractable nuclear antibody Sjogrens syndrome-B extractable nuclear antibody Lab Routine 09/24/2019 9:33 AM Kik Phone: End: 76-81-4031Crikr Study with PAP TitrationSleep Study with PAP Titration Sleep Center Routine One Time for 1 Occurrences starting 09/12/2019 until 09/12/2019[employer] Phone: comment on above:One Time for 1 Occurrences starting 09/12/2019 until 09/12/2019 End: 44-09-3861Krcttpq J3Xppynyr B6 Lab Routine Once for 1 Occurrences starting 09/24/2019 until 09/24/2019[employer] Phone: comwyse on above:Once for 1 Occurrences starting 09/24/2019 until 09/24/2019Vitamin T3Hcwktmj B6 Lab Routine 09/24/2019 9:33 AM Kik Phone: XR Cervical spine 4 or 5 ViewsXR cervical spine complete 4 to 5 views Imaging Routine Cervical paraspinal muscle spasm 512:45 PM EDTNOSC Healthcare Immunizations Immunization DateImmunizationNotesCare WuoklmkiZaakubrl96-02-2472ljatbro toxoid, reduced diphtheria toxoid, and acellular pertussis vaccine, adsorbedBilly [facility] [place] [place] Payers DatePayer CategoryPayerPolicy [id number] Care HMO (unspecified)[facility] HMO/CHOICE PLUS/DULCE/DULCE PLUS [id number] Health Insurance 1.2.840.442759.1.13.693.2.7.9.351824.837274.80583-18-3056Ikpzhlj Health [id number] 1.2.840.499474.1.13.239.2.7.3.945489.74032-87-1648Uupk-ywu [id number]-4212-4213-3796m1j3q70929-26-6371Qraz Cross Blue Shield (Indemnity or Managed Care) - Out of StateBCBS OUT OF [facility] 1.2.840.694268.1.13.385.2.7.9.721163.335.27097-76-6499Vnreyzg46-62-8182Kajmgbv [id number]s 1.2.840.352532.1.13.239.2.7.3.917221.315 [id number] 2.16.840.1.448758.3.249.13 2014MedicaidCARESOURCEMedicaidCARESOURCE MANAGED MEDICAID CARESOURCE MEDICAID xxxxxxxxxxx 2014-Presentxxxxxxxxxxx 1.2.840.824523.1.13.385.2.7.3.213[id number] 2.840.1.776967.3.57[id number] 2.0.1.370481.3.57[id number] 2.0.1.077894.3.579.2.14912-57-1650Gyniueb8123812 2.0.1.658761.3.579.2.[id number] 2.16840.1.593443.3.579.2.41962-48-5082Hvkpuzz68120157 2.0.1.694339.3.579.2.[id number] 2.16840.1.494521.3.579.2.25859-03-8683Hjzxghz13493549 2.16840.1.747741.3.579.[id number] 2.16840.1.233159.3.579.2.25461-08-3873Ilggbio2624312 2.840.1.695326.3.579.2.31711-64-1837Vymhqrs8721254 2.0.1.055616.3.579.2.03422-91-5956Pxvjubi5318416 2..1.678752.3.579.2.32649-11-8412Kpzrgmh628211150 2.0.1.164528.3.579.2.64140-37-5477Kmylpum989639570 2..1.225822.3.579.2.55288-20-9390Thnlrht09130445 2..1.707643.3.579.2.01553-23-1072Kdxolfn35711088 2..1.519451.3.579.2.481714-93-9829Ajjzcik87337320 2..1.757877.3.579.2.885118-87-3082Qxtcjei49500670 2..1.408808.3.579.2.821483-93-2836Fytigey61073402 2..1.146613.3.579.2.227444-99-7191Oayvqah98632422 2..1.697919.3.579.2.711619-34-1497Taiwlhj67192435 2..1.763430.3.579.2.331779-19-1441Rqavhjo0496085 2..1.362023.3.579.2.639487-27-0649Mmuyesc8837606 2..1.744277.3.579.2.152918-28-7196Wnolrti2009170 2..1.930635.3.579.2.328412-86-6245Pfnrxpy4312923 2.0.1.444423.3.579.2.535681-70-6289Jdsruka8401467 2.16.840.1.160602.3.579.2.536329-89-0026Mqiwgnk18078336 2.16.840.1.831345.3.579.2.24311-29-0334Yoevrhz35090079 2.840.1.552337.3.579.2.11420-05-9050Bsinzke59839562 2.16.840.1.954769.3.579.2.80231-30-5430Iordchq88142344 2.840.1.167436.3.579.2.06513-12-5332Fuwbzpv23438206 2.840.1.561773.3.579.2.28996-70-4103Bjxvdth46881630 2.0.1.562948.3.579.2.56579-58-7717Qxabqmb32896452 2.16.840.1.809567.3.579.2.99722-73-9414Dvkapdf63140448 2.840.1.457246.3.579.2.85120-99-6498Bhqmuco37616897 2.840.1.636381.3.579.2.53958-62-6302TspewcxORW765446605092 1.2.840.370294.1.13.239.2.7.3.279784.421Nkbuzuf215Latjtnc94838000 2.840.1.654732.3.579.2.531 Social History DateTypeDetailFacilityStart: 05-01-2015 End: 36-36-9894Diodcul smoking status NHISNever smokerVan [facility]ert [facility] Work Phone: Start: 52-44-3120Qdo Assigned At BirthNot on file [facility] Work Phone: Start: 05-27-2019 End: 74-68-6900Kajgfyp intakeNoWestern [facility], [facility]: 12-13-2019 End: 14-36-5138Umrrliv intakeCurrent non-drinker of alcohol (finding)[facility]: 12-09-2019 End: 38-09-0208Errurvd SDOH Iujsfwfgq1AbibkWestern Reserve Hospital, [facility]: 12-09-2019 End: 37-04-9009Bysyata SDOH Food Fuaec9AcgiqWestern Reserve Hospital, [facility]: 12-09-2019 History SDOH Transport Uhp2KivktWestern Reserve Hospital, [facility]: 05-11-2020 End: 36-50-2699Abwqsgn use and exposureNever usedUniversity Hospitals Lake [facility]: 10-30-2021 End: 72-89-3590Gdxebnmv to SARS-CoV-2 (event)Not sureUniversity Hospitals Lake West Medical Center: 94-04-6013Fvp [facility]: 14-22-8518Zviadhr SDOH Qatsclljq2WVP [facility] [employer] Work Phone: start: 01-06-2023 End: 13-13-9406Vuvdsnf of Social functionOhioHealthHow hard is it for you to pay for the very basics like food, housing, medical care, and heatingNot very hard Domo [facility]OS[facility]ITALPatient Health Questionnaire 9 item (PHQ-9) total score [Reported]0BON Lysanda(I/We) worried whether (my/our) food would run out before (I/we) got money to buy more.Never trueBON LysandaAt any time in the past 12 months, were you homeless or living in assisted [including now]?NoBON Pikimal [facility]OSPITALStart: 48-23-2640Apvanz identity Identifies as female gender (finding)Domo [facility]OS[facility]ITALStart: 10-09-2020 Sexual orientationHeterosexual (finding)Domo HEALTHHow hard is it for you to pay for the very basics like food, housing, medical care, and heating Somewhat hardBON Pikimal HEALTHStart: 06-10-2024 End: 29-62-6532Ikwbwcsry beverage intakeLifetime non-drinker (finding)[facility] HealthcareStart: 95-74-5725Yygpupo CommentCaffeine Intake: Yes, [facility] HealthcareStart: 34-15-4013LpuAlgbxu (finding)[facility] HospitalSphere ([employer] [facility] CenterHow often to you have a drink containing alcohol?NeverVcu Health Community Memorial HospitalStart: 04-20-2025 End: 02-09-9909Ropkwlden beverage intakeEx-drinker (finding)[facility] Healthcare Start: 10-79-6703Adnbygw Comment1-2 times a yearLAKEVIEW HOSPITAL HealthcareNEGATED: Highlighted rowStart: NINFHistory of tobacco usePassive [facility] Functional Status DateAssessmentResultFaWinchester Medical Center Clinical Notes 12-23-2021 to 05-24-2025 Note Date & OoycVktsLgojiixb39-60-6090 History of Present illness Narrative* Jennie Van APRN-GRETEL - 05/24/2025 11:30 AM EDT Images from [...] reflexes: Goyo's absent. Ankle clonus absent. Coordination Ulxmdf-od-dmgw, rapid alternating movements and gzvd-mv-ciaa normal bilaterally without dysmetria. Gait Casual gait: [...] Continue current management plan documented in this encounterMissouri Southern HealthcareUfpksoeytj22-05-6127 Telephone encounter Note* Telephone Encounter - Paresh Cary - 05/23/2025 9:36 AM EDT Patient same day canceled due to her foot being in a boot and cannot drive by herself. [facility] Dvoqkgucnb97-00-7426 Miscellaneous Notes* Telephone Encounter - Paresh Luis Daniel - 05/23/2025 9:36 AM EDT Patient same day canceled due to her foot being in a boot and cannot drive by herself. documented in this encounterMissouri Southern HealthcareSabpulspcl04-88-4580 History of Present illness Narrative* Robbin Sánchez, INDER - 04/20/2025 12:45 PM EDT Celina Gaspar is a 44 [...] next visit with xra documented in this encounterMissouri Southern HealthcareWjfvyipqbj50-02-1677 Evaluation note* Diagnosis Chronic renal impairment, stage [...] stage 3a (HCC) documented in this encounter [facility] Evaluation note* Diagnosis Chronic renal impairment, stage 3a (HCC)- Primary Depression with anxiety Dysthymic disorder Gastroesophageal reflux disease without esophagitis Esophageal reflux Vitamin D deficiency Unspecified vitamin D deficiency Mixed hyperlipidemia BUCK on CPAP Obstructive sleep apnea (adult) (pediatric) Restless legs Restless legs syndrome (RLS) Hyperglycemia Other abnormal glucose Pain in right foot Pain in limb documented in this encounter [facility]07-03-20[facility] History of Present illness Narrative* Robbin Sánchez, INDER - 04/06/2025 4:30 PM EDT Celina Gaspar is a 44 y.o. female presents with chief complaint of Foot Ulcer (RT toe 2 ulcer) HPI: HPI Pt has ulcer on RT toe 2 for about 2 wks. She went to [facility] ER on 04-04-25, xrays, culture and [...] toe or midfoot but also Charcot MRI [facility] 04-11-25 11:30 AM, arrive at 11:00 AM. Pt notified. documented in this encounterMissouri Southern HealthcareTidjqxctkx50-34-7916 Evaluation note* Diagnosis Chronic renal impairment, stage 3a (HCC)- Primary Depression with anxiety Dysthymic disorder Gastroesophageal reflux disease without esophagitis Esophageal reflux Vitamin D deficiency Unspecified vitamin D deficiency Mixed hyperlipidemia BUCK on CPAP Obstructive sleep apnea (adult) (pediatric) Restless legs Restless legs syndrome (RLS) Hyperglycemia Other abnormal glucose Pressure injury of deep tissue of toe, unspecified laterality- Primary documented in this encounter [facility]06-10-2025 History of Present illness Narrative* Lynn [...] in about 6 weeks (around 04/25/2025), or MANAGER SUPPLY CHAIN PLANNING. Lab Frequency Next Occurrence Therapeutic injection carpal [...] vs 2.8, all supine; PLMI=3.6, PLMAI=0.6 (Andre, home) - MAINE=6.4, position not given PAPT (Andre/Suze) [...] ? [address] ? [place], [place] [address] ? ? fax Neurology ? Clinical Neurophysiology ? Epilepsy ? Sleep Disorders ? Clinical Informatics documented in this encounterMissouri Southern HealthcareLmoocfefoa38-04-8104 Evaluation note* Diagnosis Chronic renal impairment, stage [...] Other screening mammogram documented in this encounter [facility]05[facility] History of Present illness Narrative* Trace Casas MD - 02/13/2025 1:00 PM EDT [...] 50 MCG (1999 UT) tablet Take by mouth. diclofenac sodium [...] Depression: Not at risk (11/15/2024) [facility] PHQ-2 PHQ-9 Total Score: [...] reflexes: Goyo's absent. Ankle clonus absent. Coordination Wartzw-ar-rjze, rapid alternating movements and nbvj-ue-cdol normal bilaterally without dysmetria. Gait Normal casual, toe, heel and tandem gait. Romberg is absent. 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 She continues to have significant discomfort in her feet to interrupt her sleep. This is likely worsened by Xlimfvl-Bwicm-Efybl for which she had surgery in February [...] this to [facility] in [place]. We will get the original sleep study from [facility] for review. She is following with Dr. Block for sleep medicine. EVALUATION: PSG 03/2024 - CPAP 86hfV54 w/heated humidification EMG of BUE 11/25 showed [...] CHILO Hernandez acting under the direction of Trace Casas MD. The content has been reviewed and confirmed for accuracy by Trace Casas MD documented in this encounterMissouri Southern HealthcareNqyvelkxup56-06-1235 History of Present illness Narrative* Lynn Block [...] vs 2.8, all supine; PLMI=3.6, PLMAI=0.6 (Andre, home) - MAINE=6.4, position not given PAPT (Andre/Suze) [...] in all four extremities, including at least head usher, finger abductors, biceps, triceps, deltoid, toe flexors [...] the morning. cholecalciferol (Vitamin D-3) 50 MCG (1999 UT) tablet Take by mouth. diclofenac sodium [...] ? [address] ? [place], [place] [address] ? ? fax Neurology ? Clinical Neurophysiology ? Epilepsy ? Sleep Disorders ? Clinical Informatics documented in this encounterMissouri Southern HealthcareSltzycbfge57-50-9210 Telephone encounter Note* Telephone Encounter - Janel Allen NP - 11/02/2024 9:16 PM EST Pharmacy sends medication clarification for nortriptyline as there are two directions on one received. Per ONUR Gunderson plan increase nortriptyline 50 mg 2 daily/bedtime total of 100 mg. [facility] Southern HealthcareDmzzjrfsqm19-71-1421 Miscellaneous Notes* Telephone Encounter - Janel Allen NP - 11/02/2024 9:16 PM EST Pharmacy sends medication clarification for nortriptyline as there are two directions on one received. Per ONUR Gunderson plan increase nortriptyline 50 mg 2 daily/bedtime total of 100 mg. documented in this encounterMissouri Southern HealthcareYhblcavpie08-20-[address] [place] [address] (11) [facility] [address] [place] [address] MEDICAL OFFICE [facility] [address] Dept: [phone] Loc: [phone] MD Celina Browne 44 y.o. female Patient [...] Resource Strain: Medium Risk (05/08/2024) Received from [facility] Overall Financial Resource Strain (CARDIA) Difficulty of Paying Living Expenses: Somewhat hard Food Insecurity: No Food Insecurity (05/08/2024) Received from [facility] Hunger Vital Sign Worried About Running Out of Food in the Last Year: Never true Ran Out of Food in the Last Year: Never true Transportation Needs: Unknown (05/08/2024) Received from [facility] PRAPARE - Transportation Lack of Transportation (Non-Medical): No Housing Stability: Unknown (05/08/2024) Received from [facility] Housing Stability Vital Sign Unstable Housing [...] of submandibular glands, clear salivary flow from Geauga's ducts, no stones of Geauga's ducts Temporomandibular Joint: no crepitus with motion, no tenderness on palpation, no mayo (more content not included)...[facility] Jnyttlcxrz46-16-1280 History of Present illness Narrative* Dimas Adair MD - 10/11/2024 10:05 AM EST [facility] [address] (11) [facility] [address] MEDICAL OFFICE BUILDING [facility] [address] Dept: [phone] Loc: [phone] MD Celina Browne 44 y.o. female Patient [...] Resource Strain: Medium Risk (05/08/2024) Received from [facility] Overall Financial Resource Strain (CARDIA) Difficulty of Paying Living Expenses: Somewhat hard Food Insecurity: No Food Insecurity (05/08/2024) Received from [facility] Hunger Vital Sign Worried About Running Out of Food in the Last Year: Never true Ran Out of Food in the Last Year: Never true Transportation Needs: Unknown (05/08/2024) Received from [facility] PRAPARE - Transportation Lack of Transportation (Non-Medical): No Housing Stability: Unknown (05/08/2024) Received from [facility] Housing Stability Vital Sign Unstable Housing [...] subma ndibular glands, clear salivary flow from Geauga's ducts, no stones of Geauga's ducts Temporomandibular Joint: no crepitus with motion, [...] and is agreeable to the treatment plan. --Dimas Adair MD on 10/11/2024 at 10:20 AM [...] Hematological: Negative. Psychiatric/Behavioral: Negative. documented in this nzzajlpjnDjvvTtrdxi96-64-3723 Telephone encounter Note* Telephone Encounter - Gwen Proctor - 09/14/2024 2:18 PM EST Voicemail Received: Our numbers [phone] actually have a question regarding a prescription that was prescribed today, If someone could please call me back. Thank you. Rosa Isela. [facility] HealthcareLsloaampmk24-02-4734 Miscellaneous Notes* Telephone Encounter - Gwen Meng - 09/14/2024 2:18 PM EST Voicemail Received: Our numbers [phone] actually have a question regarding a prescription that was prescribed today, If someone could please call me back. Thank you. Rosa Isela. documented in this encounterMissouri Southern HealthcareRjfocivlqd10-37-3845 Miscellaneous Notes* Telephone Encounter - My Johnson - 08/11/2024 12:03 PM EST Patient called and requested refill of Lyrica to be sent to [facility] in [place]. documented in this encounterMissouri Southern HealthcareCvwmdjhhmr98-93-8420 Telephone encounter Note* Telephone Encounter - My Johnson - 08/11/2024 12:03 PM EST Patient called and requested refill of Lyrica to be sent to [facility] in [place]. [facility] HealthcareGxtszqunco90-98-9972 History of Present illness Narrative* Tequila Obando [...] boot on. She did see Dr. Ginger amtt consultation. She did get replacement cpap machine. [...] Depression: At risk (01/28/2024) Received from [facility] PHQ-2 PHQ-9 Total Score: 6 REVIEW [...] reflexes: Goyo's absent. Ankle clonus absent. Coordination Znbtsf-eg-hjib, rapid alternating movements and bdtz-lr-ebpl normal bilaterally without dysmetria. Gait Normal casual, [...] 3 months. documented in this encounterMissouri Southern HealthcarePtmwhhvwmv06-23-8225 History of Present illness Narrative* Cheryl Ginger, DO - 05/10/2024 2:00 PM EDT Images from the original note were not included. Chief Complaint Patient presents with Sleep Apnea Subjective Celina Dieudonne Gaspar, 44 y.o., female Sleep ND 43 [...] was counseled on the risks of stroke, VA, and sudden with BUCK, along with the [...] 3-6 months documented in this encounterMissouri Southern HealthcareTnbtbwrmfm37-54-8818 History of Present illness Narrative* MASSIMO Shook [...] 2022. Shefollows with an outside provider in [place] and was immobilized for an extended period [...] Foot & Ankle Surgery documented in this vehvngymeHhzjAlcaes85-20-4369 NotePROCEDURE: XR ANKLE LT MIN 3 V, [...] BMR: 1573 calories Est. total calorie needs: ~4084-4717 Lab Results Component Value Date/Time TRIG 460 [...] bread Supper: pork chop or chicken, homemade german fries, mashed, or baked potato with broccoli [...] session duration: 55 minutes. documented in [facility] encounterPopl[facility] Phone: 1(172) 704-830805-04-2022 History of Present illness Narrative* Christel Donohue, PT - 02/05/2022 9:45 AM EDT [facility] Date: 02/05/2022 Patient Name: Celina Gaspar : 1980 Pt No Showed Appt- Follow up call, left message on voicemail that patient discharged, but to call if has questions or concerns. Christel Donohue, PT Date: 02/05/2022 documented in this encounterOhiohealth [facility] Phone: 1(330) 317-824405-04-2022 Hospital course Narrative* Christel Donohue, PT - 02/05/2022 9:45 AM EDT Images from the original note were not included. [facility] Discharge Summary Patient: Celina Gaspar : 1980 Referring Practitioner: Liliane Sawyer APRN, SLEEVE WHEEL MAKER Referral Date : 12/19/21 Diagnosis: Lumbar radiculopathy Treatment Diagnosis: Back Pain Onset Date: 12/19/21 (Referral) PT Insurance Information: [facility] Total # of Visits Approved: [...] Donohue, PT Date: 02/05/2022 documented in this [facility] Phone: 1([phone]) 986-438705-02-2022 History of Present illness Narrative* Jerica Melgar - 02/03/2022 10:30 AM EDT [facility] Date: 02/03/2022 Patient Name: Celina Gaspar : 1980 Pt Cancelled Appt due to no reason for cancel. Jerica Melgar Date: 02/03/2022 [facility] this [facility] Phone: 1([phone]) 196-752804-27-2022 History of Present illness Narrative* Beverly Rangel, TRAIN OPERATIONS SUPERVISOR - 01/29/2022 9:00 AM EDT Images from the original note were not included. [facility] Daily Note [...] Met Penitentiary Goals - Time Frame for manager intermediate goals : 10 Penitentiary Goals Time Frame for manager intermediate goals : 10 manager intermediate goal 1: Decrease pain low back 2/10 at worst x3 days for completing normal activities manager intermediate goal 2: Patient to report 50% decrease in radicular symptoms L LE Post Treatment Pain: 5/10 Time In: 0859 Time Out: 0947 Timed Code Treatment Minutes: 48 Minutes Total Treatment Time: 48 Minutes Beverly Rangel PTA Date: 01/29/2022 documented [facility] this [facility] [facility] Work Phone: 1([phone]) 148-470904-25-2022 History of Present illness Narrative* Christel Donohue, PT - 01/27/2022 3:45 PM EDT Images from the original note were not included. [facility] Outpatient Physical Therapy Daily Note [...] Increase trunk ROM B rotation WFL-Not Met Waxer Operator Goals - Time Frame for manager intermediate goals : 10 Penitentiary Goals Time Frame for FPC goals : 10 manager intermediate goal 1: Decrease pain low back 2/10 at worst x3 days for completing normal activities manager intermediate goal 2: Patient to report 50% decrease in radicular symptoms L LE Post Treatment Pain: 4/10 Time In: 15:50 Time Out : 16:19 Timed Code Treatment Minutes: 34 Minutes Total Treatment Time: 34 Minutes Christel Donohue, PT Date: 01/27/2022 [facility] Phone: 1([phone]) 264-198104-22-2022 History of Present illness Narrative* Vanessa RhodesCharitoRayarieladavid, PT - 01/24/2022 9:45 AM EDT Images from the original note were not included. [facility] Outpatient Physical Therapy Daily Note [...] WFL Penitentiary Goals - Time Frame for manager intermediate goals : 10 Waxer Operator Goals Time Frame for FPC goals : 10 manager intermediate goal 1: Decrease pain low back 2/10 at worst x3 days for completing normal activities manager intermediate goal 2: Patient to report 50% decrease in radicular symptoms L LE Post Treatment Pain: 5/10 Time In: 0952 Time Out: 1030 Timed Code Treatment Minutes: 38 Minutes Total Treatment Time: 38 Minutes Vanessa Garcia, PT Date: 01/24/2022 documented in this [facility] Phone: 1(238) 180-522204-20-2022 History of Present illness Narrative* Beverly Gutiérrez Rangel, TRAIN OPERATIONS SUPERVISOR - 01/22/2022 4:45 PM EDT [facility] Date: 01/22/2022 Patient Name: Celina Gaspar : 1980 Patient did not show up for her appointment. Message left on answering machine with a reminder of her next appointment on Thursday. Beverly Rangel, TRAIN OPERATIONS SUPERVISOR Date: 01/22/2022 documented in this [facility] [employer] Phone: [phone]) 237-305904-15-2022 History of Present illness Narrative* Beverly Rangel, TRAIN OPERATIONS SUPERVISOR - 01/17/2022 10:30 AM EDT Images from the original note were not included. [facility] Out[facility] Physical Therapy Daily Note Date: 01/17/2022 Patient Name: Celina Gaspar : 1980 (41 y.o.) Referring Practitioner: Liliane Sawyer APRN, SLEEVE WHEEL MAKER Referral Date : 12/19/21 Diagnosis: Lumbar radiculopathy [...] 4: Increase trunk ROM B rotation WFL Waxer Operator Goals - Time Frame for manager intermediate goals : 10 FPC goal 1: Decrease pain low back 2/10 at worst x3 days for completing normal activities manager intermediate goal 2: Patient to report 50% decrease in radicular symptoms L LE Post Treatment Pain: 5/10 Time In: 1037 Time Out: 1107 Timed Code Treatment Minutes: 30 Minutes Total Treatment Time: 30 Minutes Beverly Rangel PTA Date: 01/17/2022 [facility] Phone: 1([phone]) [phone] History of Present illness Narrative* ISAIAH Metzger - 01/13/2022 3:15 PM EDT [facility] Date: 01/13/2022 Patient Name: Celina Phand : 1980 Pt Cancelled Appt due to no reason given. PRESTON Metzger/Matthew Date: 01/13/2022 [facility] in this [facility] Phone: [phone]) 723-622904-01-2022 History of Present illness Narrative* Beverly Rangel PTA - 01/03/2022 9:45 AM EDT Images from the original note were not included. [facility] Therapy Daily Note [...] 4: Increase trunk ROM B rotation WFL Waxer Operator Goals - Time Frame for FPC goals : 10 manager intermediate goal 1: Decrease pain low back 2/10 at worst x3 days for completing normal activities FPC goal 2: Patient to report 50% decrease in radicular symptoms L LE Post Treatment Pain: 5/10 Time In: 0948 Time Out: 1028 Timed Code Treatment Minutes: 40 Minutes Total Treatment Time: 40 Minutes Beverly Rangel PTA Date: 01/03/2022 [facility]: [phone] History of Present illness Narrative* Cheryl Herman OT - 12/31/2021 9:30 AM EDT Images from the original note were not included. [facility] Out[facility] Occupational Therapy Daily Note [...] Time Frame for Short term goals: STG=LTG Waxer Operator Goals Time Frame for manager intermediate goals : 12 visits (01/24/2022) manager intermediate goal 1: pt to be indepenent in HEP-MET FPC goal 2: Pt to demonstrate R wrist flexion to 65 degrees or more in order to engage in daily tasks-MET manager intermediate goal 3: Pt to demonstrate R wrist extension to 60 degrees or more in order to engage in daily tasks-MET manager intermediate goal 4: Pt to be educated on carpal tunnel do's & dont's in order to prevent further repetitive injury to wrist-MET Timed Code Treatment Minutes: 30 Minutes Time In: 915 Time Out: 945 Timed Coded Minutes: 30 Total Treatment Time: 30 THERESA Houser, OTR/L Date: 12/31/2021 [facility] Phone: 1([phone]) 275-634003-29-2022 Hospital course Narrative* Cheryl Herman, OT - 12/31/2021 9:30 AM EDT Images from the original note were not included. [facility] Out[facility]ational Therapy Discharge Summary [...] has been provided w/ HEP for continued pinch/head usher strengthening & stretching. Therapist provided pt with handout on Carpal Tunnel Dos & Dont's to avoid re-injury. Prognosis: Fair Goals Short Term Goals Time Frame for Short term goals: STG=LTG Waxer Operator Goals Time Frame for manager intermediate goals : 12 visits (01/24/2022) FPC goal 1: pt to be indepenent in HEP-MET manager intermediate goal 2: Pt to demonstrate R wrist flexion to 65 degrees or more in order to engage in daily tasks-MET manager intermediate goal 3: Pt to demonstrate R wrist extension to 60 degrees or more in order to engage in daily tasks-MET FPC goal 4: Pt to be educated on carpal tunnel do's & dont's in order to prevent further repetitive injury to wrist-MET Reason for Discharge [] Poor Follow Through [] Completion of Prescribed Sessions [x] Optimal Function Achieved [] Patient Discharged Self [x] Goals Achieved Comments: Thank you for this referral THERESA Houser, OTR/L Date: 12/31/2021 [facility] Phone: [phone]) [phone] History of Present illness Narrative* Christel Donohue, PT - 12/31/2021 8:30 AM EDT Images from the original note were not included. [facility] Evaluation Date: [...] 4: Increase trunk ROM B rotation WFL FPC goals Time Frame for manager intermediate goals : 10 FPC goal 1: Decrease pain low back 2/10 at worst x3 days for completing normal activities FPC goal 2: Patient to report 50% decrease in radicular symptoms L LE Patient's Goal: Decrease back pain to complete normal activities Timed Code Treatment Minutes: 15 Minutes Total Treatment Time: 45 Time In: 8:30 Time Out: 9:15 Christel Donohue, PT Date: 12/31/2021 documented in this [facility] [employer] Work Phone: [phone] 602-946703-28-2022 History of Present illness Narrative* Cheryl Herman OT - 12/30/2021 8:30 AM EDT Images from the original note were not included. [facility] Out[facility] Occupational Therapy Daily Note [...] Time Frame for Short term goals: STG=LTG Waxer Operator Goals Time Frame for manager intermediate goals : 12 visits (01/24/2022) FPC goal 1: pt to be indepenent in HEP-MET FPC goal 2: Pt to demonstrate R wrist flexion to 65 degrees or more in order to engage in daily tasks-MET manager intermediate goal 3: Pt to demonstrate R wrist extension to 60 degrees or more in order to engage in daily tasks-MET FPC goal 4: Pt to be educated on carpal tunnel do's & dont's in order to prevent further repetitive injury to wrist-MET Time In: 835 Time Out: 915 Timed Coded Minutes: 40 Total Treatment Time: 40 THERESA Houser, OTR/L Date: 12/30/2021 documented in this [facility] Phone: [phone]) [phone] History of Present illness Narrative* Cheryl Castro Batsheva, OT - 12/23/2021 8:30 AM EDT Images from the original note were not included. [facility] Evaluation Date: [...] completing these mvmts Left Hand Strength - Manager Of Internal (lbs) Handle Setting 2: 54#, 50#, 53# (52.3# ave) Left Hand Strength - Pinch (lbs) Lateral: 13.5# Tip: 8# Palmar 3 point: 11# Right Hand Strength - Manager Of Internal (lbs) Handle Setting 2: 53#, 54#, 53# [...] Time Frame for Short term goals: STG=LTG manager intermediate goals Time Frame for FPC goals : 12 visits (01/24/2022) manager intermediate goal 1: pt to be indepenent in HEP FPC goal 2: Pt to demonstrate R wrist flexion to 65 degrees or more in order to engage in daily tasks FPC goal 3: Pt to demonstrate R wrist extension to 60 degrees or more in order to engage in daily tasks FPC goal 4: Pt to be educated on carpal tunnel do's & dont's in order to prevent further repetitive injury to wrist Patient's Goal: pt wishes to return to prior function Time In: 830 Time Out: 924 Timed Coded Minutes: 0 Total Treatment Time: 54 THERESA Houser, OTR/Matthew 12/23/2021 [facility] Phone: [email or web address] note* Diagnosis Viral illness Unspecified viral infection, in conditions classified elsewhere and of unspecified site [facility] Phone: evalklnwmv note* Diagnosis Suspected COVID-19 virus infection [facility] Phone: evalmkgjbf note* Diagnosis Acute cystitis with hematuria Acute cystitis [facility] Phone: evalglvhsh note* Diagnosis Difficult or painful urination Dysuria [facility] Phone: evalvcqivb note* Diagnosis Acute cystitis with hematuria Acute cystitis Recurrent UTI Urinary tract infection, site not specified [facility] Phone: evalqeubvz note* Diagnosis Frequent UTI Urinary tract infection, site not specified Urinary urgency Urgency of urination Urinary frequency [facility] Phone: evalxvbugh note* Diagnosis Frequent UTI Urinary tract infection, site not specified Urinary urgency Urgency of urination Urinary frequency [facility] Phone: evalcutjfw note* Diagnosis MRSA (methicillin resistant Staphylococcus aureus) septicemia (HCC) Methicillin resistant staphylococcus aureus septicemia documented in this encounter [facility] noteNo assessment information availableThe Surgical Hospital [facility] Work Phone: Evaluation note* Diagnosis Fatigue, unspecified type Encounter for screening for HIV Mixed hyperlipidemia Hyperglycemia Other abnormal glucose Chronic renal impairment, stage 3b (HCC) documented in this encounter [facility] [employer] Phone: evalpvdrep note* Diagnosis Acute cystitis with hematuria Acute cystitis documented in this encounter [employer] Phone: evaluation note* Diagnosis Neck mass Swelling, mass, or lump in head and neck documented in this encounter [employer] Phone: evaluation note* Diagnosis Pain of foot, unspecified laterality Closed nondisplaced fracture of second metatarsal bone of left foot, initial encounter Closed nondisplaced fracture of lateral cuneiform of left foot, initial encounter documented in this encounter [employer] Phone: evaluation note* Diagnosis Foreign body (FB) in soft tissue Residual foreign body in soft tissue documented in this encounter [employer] Phone: evaluation note* Diagnosis Pelvic pressure in female Other specified symptom associated with female genital organs documented in this encounter [employer] Phone: evalklkcad note* Diagnosis Charcot arthropathy of midfoot- Primary Gastrocnemius equinus, unspecified laterality Foot pain, left Pain in soft tissues of limb [facility]* Diagnosis Mixed hyperlipidemia documented in this encounter [employer] [facility] note* Diagnosis Idiopathic progressive polyneuropathy Non-seasonal allergic rhinitis due to pollen [facility]* Diagnosis Thyroid nodule Nontoxic uninodular goiter documented in this encounter [facility]* Diagnosis Thyroid nodule- Primary Nontoxic uninodular goiter [facility] Diagnosis BUCK on CPAP- Primary 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 (CMS/HCC) Restless legs Restless legs syndrome (RLS) Bilateral carpal tunnel syndrome Carpal tunnel syndrome documented [facility]* Diagnosis Idiopathic progressive polyneuropathy- Primary Bilateral carpal tunnel syndrome Carpal tunnel syndrome Restless legs Restless legs syndrome (RLS) Intractable 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 (CMS/HCC) documented in this encounter [facility]* Diagnosis BUCK (obstructive sleep apnea) Obstructive sleep apnea (adult) (pediatric) Hypersomnia Hypersomnia, unspecified Snoring Other dyspnea and respiratory abnormality Class 2 obesity due to excess calories with body mass index (BMI) of 38.0 to 38.9 in adult, unspecified whether serious comorbidity present documented in this encounter [facility]* Diagnosis Idiopathic progressive polyneuropathy Non-seasonal allergic rhinitis due to pollen documented in this encounter [facility]* Diagnosis Thyroid nodule- Primary Nontoxic uninodular goiter Lipoma of neck [facility] Diagnosis 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 (CMS/HCC) documented in this encounter [facility]* Diagnosis BUCK on CPAP- Primary Idiopathic progressive polyneuropathy Restless legs Restless legs syndrome (RLS) Intractable 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 (CMS/HCC) documented in this encounter [facility] note* Diagnosis Pre-diabetes Other abnormal glucose Mixed hyperlipidemia [facility]* Diagnosis BUCK (obstructive sleep apnea)- Primary Obstructive sleep apnea (adult) (pediatric) BUCK on CPAP Claustrophobia (CMS/HCC) Other isolated or specific phobias documented in this encounter [facility]* Diagnosis BUCK (obstructive sleep [...] apnea (adult) (pediatric) documented in this encounter [facility]* Diagnosis BUCK (obstructive sleep apnea)- Primary Obstructive sleep apnea (adult) (pediatric) BUCK on CPAP Claustrophobia Other isolated or specific phobias BUCK (obstructive sleep apnea)- Primary Obstructive sleep apnea (adult) (pediatric) Claustrophobia Other isolated or specific phobias Hypersomnia Hypersomnia, unspecified documented in this encounter [facility]* Diagnosis BUCK (obstructive sleep [...] Generalized edema Edema documented in this encounter [facility]* Diagnosis BUCK (obstructive sleep [...] foot, initial encounter documented in this encounter [facility]* Diagnosis BUCK (obstructive sleep [...] or radiculitis nos documented in this encounter [facility] HealthcareH[facility] Discharge instructions* Attachments The following attachments cannot be sent through Care Everywhere. * Diabetic Foot Ulcer (Azerbaijani) [facility] Narrative* Other (Routine) - ClosedSpecialtyDiagnoses / ProceduresReferred By Contact Referred To ContactRadiology Diagnoses Encounter for screening mammogram for malignant neoplasm of breast Procedures [facility] DIGITAL SCREEN BILATERAL Back, MD Felipe [address] [place] [address] Phone: tel: fax: Referral IDStatusReasonStart DateExpiration DateVisits RequestedVisits [id number]/27/20254/ [facility] ([employer] [facility] CenterReason for visit Narrative* Imaging (Emergency) - Pending ReviewSpecialtyDiagnoses / ProceduresReferred By ContactReferred To ContactRadiology Diagnoses Pain in right foot Procedures MRI FOOT RIGHT W WO CONTRAST Robbin Sánchez, DPM [address], [place] [address] Phone: tel: fax: Referral IDStatusReasonStart DateExpiration DateVisits RequestedVisits [id number] Review [facility] Summary Purpose Family History No Family [...] No Advanced Directives Records FoundDocuments on File TypeDate RecordedPatient RepresentativeExplanationAdvance Directives and Living WillPower of AttorneyCode StatusDate ActivatedDate InactivatedCommentsFull Code 08/15/2018 4:17 PM08/25/2018 8:55 PMFull Code03/19/2017 1:37 PM03/19/2017 4:32 PM Full Code03/19/2017 10:57 AM03/19/2017 1:37 PMFull Code03/05/2017 12:56 PM03/05/2017 3:55 PMFull Code03/05/2017 10:05 AM03/05/2017 12:56 PMTypeDate RecordedPatient RepresentativeExplanationACP-Advance DirectiveACP-Power of AttorneyTypeDate RecordedPatient RepresentativeExplanationACP-Advance DirectiveACP-Power of AttorneyCode StatusDate ActivatedDate InactivatedCommentsFull Code08/15/2018 4:17 PM08/25/2018 8:55 PMFull Code03/19/2017 1:37 PM03/19/2017 4:32 PMFull Code 03/19/2017 10:57 AM03/19/2017 1:37 PMFull Code03/05/2017 12:56 PM03/05/2017 3:55 PM Full Code03/05/2017 10:05 AM03/05/2017 12:56 PM Advance Directive Response Recorded Date/ Time Advance Directives No January 24, 2 022 10:40am Code StatusDate ActivatedDate InactivatedCommentsFull Code08/15/2018 4:17 PM 08/25/2018 8:55 PMCode StatusDate ActivatedDate InactivatedCommentsFull Code 03/19/2017 1:37 PM03/19/2017 4:32 PMFull Code03/19/2017 10:57 AM03/19/2017 1:37 PM Full Code03/05/2017 12:56 PM03/05/2017 3:55 PMFull Code03/05/2017 10:05 AM03/05/2017 12:56 PMDate ActivatedDate SagtdktorgpLlmyesae91/11/2018 4:17 PM08/25/2018 8:55 PMDate ActivatedDate InactivatedComments03/19/2017 1:37 PM03/19/2017 4:32 PMDate ActivatedDate InactivatedComments03/19/2017 10:57 AM03/19/2017 1:37 PMDate ActivatedDate InactivatedComments03/05/2017 12:56 PM03/05/2017 3:55 PMDate Activated Date InactivatedComments03/05/2017 10:05 AM03/05/2017 12:56 PMDate ActivatedDate DkiwxuaxkbgWitpbbhj97/11/2018 4:17 PM08/25/2018 8:55 PMDate ActivatedDate InactivatedComments03/19/2017 1:37 PM03/19/2017 4:32 PMDate ActivatedDate InactivatedComments03/19/2017 10:57 AM03/19/2017 1:37 PMDate ActivatedDate InactivatedComments03/05/2017 12:56 PM03/05/2017 3:55 PMDate ActivatedDate InactivatedComments03/05/2017 10:05 AM03/05/2017 12:56 PM Assessments Diagnosis MRSA (methicillin resistant [...] Everywhere. * Back Care Basics: General Info (Azerbaijani) * Back: Preventing Injuries (Azerbaijani) documented in this encounter Reason for Referral StatusReasonSpecialtyDiagnoses / ProceduresReferred By ContactReferred To ContactClosedRadiology Diagnoses Brachial neuritis Peripheral nerve disorder Spasm of muscle Procedures MR Cervical Spine Without Contrast Trace Casas MD [address] [place] [address] SpecialtyDiagnoses / ProceduresReferred By ContactReferred To ContactRadiology Diagnoses Neck mass Procedures US HEAD NECK SOFT TISSUE THYROID Felipe Adam MD [address] [place] [address] Referral IDStatusReasonStart DateExpiration DateVisits RequestedVisits [id number]/23/[id number] / Procedures Referred By ContactReferred To ContactRadiology Diagnoses Thyroid nodule Procedures US THYROID Back, MD Felipe [address] [place] [address] Referral IDStatusReasonStart DateExpiration DateVisits RequestedVisits [id number]/ Chief Complaint and Reason for Visit Chief Complaint M54.16 M79.10 M79.60 9 R20.9 Chief Complaint Unknown Additional Source Comments INFORMATION SOURCE (unrecogn ized section and content) DATE CREATED AUTHOR 03/30/2018 [facility] DATE CREATED AUTHOR AUTHORKellieS BHARTI BASHIR 03/30/2018 [facility] DATE CREATED AUTHOR AUTHOR'S ORGANIZ ATION 09/15/2018 [facility] DATE CREATED AUTHOR AUTHOR'S ORGANIZ ATION 09/23/2018 [facility] DATE CREATED AUTHOR AUTHOR'S ORGANIZ ATION 09/26/2018 [facility] DATE CREATED AUTHOR AUTHOR'S ORGANIZ ATION 12/10/2018 [facility] DATE CREATED AUTHOR AUTHOR'S ORGANIZ ATION 12/18/[address] [facility] DATE CREATED AUTHOR AUTHOR'S ORGANIZ ATION 02/11/2019 [facility] DATE CREATED AUTHOR AUTHOR'S ORGANIZ ATION 11/30/2021 [facility] DATE CREATED AUTHOR AUTHOR'S ORGANIZ ATION 05/01/2022 [facility] DATE CREATED AUTHOR AUTHOR'S ORGANIZ ATION 01/12/2023 [facility] DATE CREATED AUTHOR AUTHOR'S ORGANIZ ATION 02/15/2023 [facility] DATE CREATED AUTHOR AUTHOR'S ORGANIZ ATION 04/04/2023 [facility] DATE CREATED AUTHOR AUTHOR'S ORGANIZ ATION 02/20/2024 [facility] DATE CREATED AUTHOR AUTHOR'S ORGANIZ ATION 10/17/2024 [facility] DATE CREATED AUTHOR AUTHOR'S ORGANIZ ATION 02/14/2025 [facility] DATE CREATED AUTHOR AUTHOR'S ORGANIZ ATION 2025 [facility] DATE CREATED AUTHOR AUTHOR'S ORGANIZ ATION 07/23/2025 [facility] Reason for Visit (unrecogniz ed section and content) ReasonCommentsSleep ApneaSpecialtyDiagnoses / ProceduresReferred By Contact Referred To ContactNeurology Diagnoses BUCK on CPAP Procedures NE OFFICE/OUTPATIENT NEW HIGH MDM 60 MINUTES Fozia Meng, MANAGER SUPPLY CHAIN PLANNING [address], [facility] [address] [place] [address] Phone: tel: fax: Lynn Block MD [address] [place] [address] Phone: tel: fax: Referral IDStatusReasonStart DateExpiration DateVisits RequestedVisits [id number] Specialty Services Required /[id number] / ProceduresReferred By ContactReferred To ContactClosedRadiology Diagnoses Brachial neuritis Peripheral nerve disorder Spasm of muscle Procedures MR Cervical Spine Without Contrast Trace Casas MD [address] [place] [address] SpecialtyDiagnoses / ProceduresReferred By ContactReferred To Contact Occupational Therapy Diagnoses Carpal tunnel syndrome Carpal Tunnel Syndrome Procedures Eval and treat Keenan Lozano MD [address] [place] [address] [facility] [address] [place] [address] Referral IDStatusReasonStart DateExpiration DateVisits RequestedVisits [id number] / Procedures Referred By ContactReferred To ContactPhysical Therapy Diagnoses Radiculopathy, lumbar region Lumbar Radiculopathy Procedures Eval and treat Janel Allen, COAT FITTER - SLEEVE WHEEL MAKER [address] [place] [address] [facility] [address] [place] [address] Referral IDStatusReasonStart DateExpiration DateVisits RequestedVisits [id number] / Procedures Referred By ContactReferred To ContactRadiology Diagnoses Neck mass Procedures US HEAD NECK SOFT TISSUE THYROID Back, MD Felipe [address] [place] [address] Referral IDStatusReasonStart DateExpiration DateVisits RequestedVisits [id number]/23/20228/[id number] / Procedures Referred By ContactReferred To ContactRadiology Diagnoses Pain of foot, unspecified laterality Closed nondisplaced fracture of lateral cuneiform of left foot, initial encounter Procedures MRI FOOT LEFT W WO CONTRAST MRI FOOT LEFT W WO CONTRAST Robbin Sánchez, DPDieudonne [address] [facility], [address] [place] [phone] Referral IDStatusReasonStart DateExpiration DateVisits RequestedVisits [id number]/16/20229/[id number] Class SpecialtyDiagnoses / ProceduresReferred By ContactReferred To ContactDiabetes Services Diagnoses Pre-diabetes Felipe Adam MD [address] [place] [address] [facility] [address] [phone] Referral IDStatusReasonStart DateExpiration DateVisits RequestedVisits [id number] Specialty Services Required /[id number] / ProceduresReferred By ContactReferred To ContactDiabetes Services Diagnoses Pre-diabetes Felipe Adam MD [address] [place] [address] [facility] [address] [place] [address] ReasonCommentsOtherLeft foot charcot on-going since 06/2022. New x-rays today. 2nd of opinion.SpecialtyDiagnoses / ProceduresReferred By ContactReferred To ContactRadiology Diagnoses Thyroid nodule Procedures US THYROID Felipe Adam MD [address] [place] [address] Referral IDStatusReasonStart DateExpiration DateVisits RequestedVisits [id number] Rczgil62/[id number] DateCommentsMed Gnsjpl6810/05/2024ReasonCommentsNew PatientFNA - THYROID NODULESpecialtyDiagnoses / ProceduresReferred By ContactReferred To ContactOtolaryngology Diagnoses Thyroid nodule Felipe Adam MD [address] [phone] Phone: tel: fax: Dimas Adair MD [address] [address] Phone: tel: fax: Referral IDStatusReasonStart DateExpiration DateVisits RequestedVisits [id number] [id number] UlcerPt presents to ER with a skin ulcer on her right 2nd digit that she noticed around 2 weeks ago. States she has had swelling in that foot since then, but the swelling has gotten worse even from this AM and has moved up her leg. States she has neuropathy in both feet to mid calf. Hx of Charcot foot and reconstruction in left foot.ReasonCommentsFoot UlcerRT toe 2 ulcerReasonCommentsFollow-upRT foot pain/Review MRI results Care Teams (unrecognized sec tion and content) Team MemberRelationshipSpecialtyStart DateEnd Date Back, MD Felipe [address] [place] [address] PCP - GeneralInternal Medicine11/14/11Team MemberRelationshipSpecialtyStart Date End Date Felipe Adam MD [address] [place] [address] PCP - GeneralInternal Medicine11/14/11Team MemberRelationshipSpecialtyStart Date End Date BackFelipe MD [address] [place] [address] PCP - GeneralInternal Medicine11/14/11Team MemberRelationshipSpecialtyStart Date End Date BackFelipe MD [address] [place] [address] PCP - GeneralInternal Medicine11/14/11Team MemberRelationshipSpecialtyStart Date End Date Back, MD Felipe [address] [place] [phone] PCP - GeneralInternal Medicine11/14/11Team MemberRelationshipSpecialtyStart Date End Date Back, MD Felipe [address] [place] [address] PCP - GeneralInternal Medicine11/14/11Team MemberRelationshipSpecialtyStart Date End Date Back, MD Felipe [address] [place] [phone] PCP - GeneralInternal Medicine11/14/11 Team Status: Inactive Member Role Status Dates NON STAFF Primary Care Provider Active Trace Casas MDAttending ProviderActive Team Status: Active Member Role Status Dates NON STAFF Primary Care Provider Active Team MemberRelationshipSpecialtyStart DateEnd Date Back, MD Felipe [address] [place] [phone] PCP - GeneralInternal Medicine11/14/11Team MemberRelationshipSpecialtyStart Date End Date Back, MD Felipe [address] [place] [address] PCP - GeneralInternal Medicine11/14/11Team MemberRelationshipSpecialtyStart Date End Date Back, MD Felipe [address] [place] [phone] PCP - GeneralInternal Medicine11/14/11Team MemberRelationshipSpecialtyStart Date End Date Back, MD Felipe [address] [place] [phone] PCP - GeneralInternal Medicine11/14/11Team MemberRelationshipSpecialtyStart Date End Date Back, MD Felipe [address] [place] [address] PCP - GeneralInternal Medicine11/14/11Team MemberRelationshipSpecialtyStart Date End Date Back, MD Felipe [address] [place] [address] PCP - GeneralInternal Medicine11/14/11Team MemberRelationshipSpecialtyStart Date End Date Back, MD Felipe [address] [place] [address] PCP - GeneralInternal Medicine11/14/11Team MemberRelationshipSpecialtyStart Date End Date Back, MD Felipe [address] [place] [address] PCP - GeneralInternal Medicine11/14/11Team MemberRelationshipSpecialtyStart Date End Date Back, MD Felipe [address] [place] [address] PCP - GeneralInternal Medicine03/26/15Team MemberRelationshipSpecialtyStart Date End Date Back, MD Felipe [address] [place] [address] PCP - GeneralInternal Medicine11/14/11 Team Status: Inactive Member Role Status Dates Frances Harris DPM MS Attending Provider Active Start: February 15, 2024 End: February 15, 2024Team MemberRelationshipSpecialtyStart DateEnd Date Back, MD Felipe [address] [place] [address] PCP - GeneralInternal Medicine11/14/11Team MemberRelationshipSpecialtyStart Date End Date Back, MD Felipe [address] [facility], [place] [address] PCP - GeneralInternal Medicine11/14/11Team MemberRelationshipSpecialtyStart Date End Date Back, MD Felipe [address] [facility], [facility] PCP - GeneralInternal Medicine03/26/15Team MemberRelationshipSpecialtyStart Date End Date Back, MD Felipe [address] [facility], [facility] PCP - GeneralInternal Medicine03/26/15am MemberRelationshipSpecialtyStart Date End Date Back, MD Felipe [address] [facility], [place] [address] PCP - GeneralInternal Medicine11/14/11am MemberRelationshipSpecialtyStart Date End Date Back, MD Alcides [address] [facility], [facility] PCP - GeneralFamily Medicine12/08/24Team MemberRelationshipSpecialtyStart DateEnd Date Back, MD Alcides [address] [facility], [facility] PCP - GeneralFamily Medicine12/08/24Team MemberRelationshipSpecialtyStart DateEnd Date Back, MD Felipe [address] [facility], [facility] PCP - GeneralInternal Medicine11/14/11Team MemberRelationshipSpecialtyStart Date End Date Back, MD Alcides [address] [facility], [facility] PCP - GeneralFamily Medicine12/08/24Team MemberRelationshipSpecialtyStart DateEnd Date Back, MD Felipe [address] [facility], [facility] PCP - GeneralInternal Medicine11/14/11Team MemberRelationshipSpecialtyStart Date End Date Back, MD Alcides [address] [facility], [facility] PCP - GeneralFamily Medicine12/08/24Team MemberRelationshipSpecialtyStart DateEnd Date Back, MD Alcides [address] [facility], [place] [address] PCP - GeneralFamily Medicine12/08/24Team MemberRelationshipSpecialtyStart DateEnd Date Back, MD Alcides [address] [facility], [facility] PCP - GeneralFamily Medicine12/08/24Team MemberRelationshipSpecialtyStart DateEnd Date Back, MD Alcides [address] [facility], [place] [address] PCP - GeneralFamily Medicine12/08/24Team MemberRelationshipSpecialtyStart DateEnd Date Back, MD Felipe [address] [facility], [facility] PCP - GeneralInternal Medicine11/14/11Team MemberRelationshipSpecialtyStart Date End Date Back, MD Felipe [address] [facility], [facility] PCP - GeneralInternal Medicine11/14/11Team MemberRelationshipSpecialtyStart Date End Date Back, MD Alcides [address] [place] [address] PCP - GeneralFamily Medicine12/08/24Te MemberRelationshipSpecialtyStart DateEnd Date Back, MD eFlipe [address] [facility], [place] [address] PCP - GeneralInternal Medicine11/14/11Team MemberRelationshipSpecialtyStart Date End Date Back, MD Alcides [address] [place] [address] [facility]CP - [facility]12/08/24Team MemberRelationshipSpecialtyStart DateEnd Date Back, MD Alcides [address] [place] [address] PCP - Generalmily Medicine12/08/24Team MemberRelationshipSpecialtyStart DateEnd Date Back, MD Felipe [address] [place] [address] PCP - GeneralInternal Medicine11/14/11 Goals (unrecognized section and content) Goals may be documented in a n alternate sectionGoals may be documented in an alternate section Ordered Prescriptions (unrec ognized section and content) PrescriptionSigDispense QuantityRefillsLast FilledStart DateEnd Date clindamycin (CLEOCIN) 300 MG capsule Take 1 capsule by mouth 3 times daily for 10 days 30 capsule ciprofloxacin (CIPRO) 500 MG tablet Take 1 tablet by mouth 2 times daily for 10 days 20 tablet Scheduled Active and Recently Administ ered Medications (unrecognized section and content) Medication Order06/30/827069/01/844345/11/2024 ciprofloxacin (CIPRO) IVPB 400 mg (COMPLETED) 400 mg, IntraVENous, ONCE, 1 dose, On Thu04/04/25 at 2200, Antimicrobial Indications: Skin and Soft Tissue Infection * 2216 (New Bag - Provider: Rebeca Moore RN) * 2320 (Stopped - Provider: Rebeca Moore RN) clindamycin (CLEOCIN) 600 mg in sodium chloride 0.9 % 50 mL IVPB (COMPLETED) 600 mg, IntraVENous, ONCE, 1 dose, On Thu04/04/25 at 2200, Antimicrobial Indications: Skin and Soft Tissue Infection * 2322 (New Bag - Provider: Rebeca Moore RN - Comment: right medication, dosage of medication and mixture verified with MANINDER Hoang.) * 2354 (Stopped - Provider: Rebeca Moore RN) sodium chloride 0.9 % bolus 1,000 mL (COMPLETED) 1,000 mL (10.3 mL/kg), IntraVENous, at 1,935.5 mL/hr, Administer over 31 Minutes, ONCE, On Thu04/04/25 at 2200, For 1 dose * 2211 (New Bag - Provider: Rebeca Moore RN) * 2316 (Stopped - Provider: Rebeca Moore RN) FOR [...] BE BASED ON THE PRIMARY CLINICAL RECORDS. [facility] [employer] [facility]. provides no warranty or guarantee of the accuracy or completeness of information in this document.
== END 2025-07-25 10:49 | disposition home or self-care (01) ==
LOC: RAD 10:49
PROVIDERS: PCP Internal Medicine; Visit Provider Physician Assistant
DX: L97.528 Non-pressure chronic ulcer of other part of left foot with other specified severity (principal); L97.518 Non-pressure chronic ulcer of other part of right foot with other specified severity
CPT/HCPCS: 73630

== ENCOUNTER 2025-07-25 16:02 | Outpatient (OUT) | payer OTHER, SELFPAY ==
--- OUTSIDE RECORDS SUMMARY | 2024-03-15 06:40 | XMS_ITS ---
Author Organization The [facility] in [place] Address [address] [place] [address] Care Team Providers Care Seismic Prospecting Supervisor Name Role Phone None, Unknown or Primary Care Provider Unavailab Roxanne Rodríguez Unavailable [phone] REASON FOR VISIT splint change, skin check Encounters Encounter Location Date Provider Diagnosis [facility] (PODIATRY) [address] [place] [address] [place] [address] 03/15/2024 Roxanne Segura Plan Of Treatment No Information Progress Notes * Celina GASPAR MDOB: 9 (45 yo F)Acc No.[id number]:03/15/2024 UNLOCKED PROGRESS NOTE Progress Note Patient: Celina DRAKE :?SABINA MckeonCDOB:1980???Age:43 Y ???Sex:FemaleDate:4Phone:[phone]:23 [facility]Pcp:Unknown or None Subjective: * Chief Complaints: * 1 . Splint change, skin check. * Medical History: Objective: * Vitals: Assessment: Plan: * Treatment: * * Electronic signature of Roxanne Segura PA-C on 07/25/2025 at 04:04 PM EDTSign off status: PendingVisit Status:?CANC (Cancelled) * Provider: Brady Segura PA-C Date: 0 03/15/2024 Generated for Printing/Faxing/eTransmitting on:?07/25/2025 04:04 PM EDT
--- OUTSIDE RECORDS SUMMARY | 2024-04-14 07:20 | XMS_ITS ---
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 Name Role Phone None, Unknown or Primary Care Provider Unavailab Roxanne Rodríguez Unavailable [phone] Encounters Encounter Location Date Provider Diagnosis The [facility] (PODIATRY) [address] [place] [address] [place] [address] 04/14/2024 Roxanne Segura Plan Of Treatment No Information Progress Notes * Celina GASPAR MDOB: 9 (45 yo F)Acc No.[id number]:04/14/2024 UNLOCKED PROGRESS NOTE Nurse Visit Patient: Rubén Celina YAÑEZ :?SABINA MckeonCDOB:1980???Age:43 Y ???Sex:FemaleDate:4Phone:[phone]:23 [place], [place]-[address]Pcp:Unknown or None Subjective: * Chief Complaints: * * Medical History: Objective: * Vitals: Assessment: Plan: * Treatment: * * Electronic signature of Roxanne Segura PA-C on 07/25/2025 at 04:05 PM EDTSign off status: PendingVisit Status:?CANC (Cancelled) * Provider: Brady Segura PA-C Date: 0 04/14/2024 Generated for Printing/Faxing/eTransmitting on:?07/25/2025 04:05 PM EDT
--- OUTSIDE RECORDS SUMMARY | 2025-07-21 15:25 | XMS_ITS | Encounter Summary ---
Author Organization [facility] Address [address], [address] [place] [address] Care Team Providers Care Offset Press Operator Apprentice Name Role Phone Felipe Adam MD Primary Care Provider [phone] Encounter Details DateTypeDepartmentCare Team (Latest Contact Info)Vnjieektzar04/17/2025 3:25 PM EDT - 07/21/2025 11:59 PM EDTHospital Encounter [facility] [address] [place] [address] Discharge Disposition: Home or Self Care Social History Tobacco UseTypesPacks/DayYears UsedDateSmoking Tobacco: NeverPassive Smoke Exposure: NeverSmokeless Tobacco: NeverAlcohol UseStandard Drinks/WeekCommentsNo 0 (1 standard drink = 0.6 oz pure alcohol)[facility] UtilitiesAnswerDate RecordedIn the past 12 months has the [employer], gas, oil, or water LOANZ threatened to shut off services in your home?No11/15/2024UDIT-CAnswerDate RecordedQ1: How often do you have a drink containing alcohol?Never04/04/2025Q2: How many drinks containing alcohol do you have on a typical day when you are drinking?Patient does not drink04/04/2025Q3: How often do you have six or more drinks on one occasion?Never04/04/2025Overall Financial Resource Strain (CARDIA)AnswerDate RecordedHow hard is it for you to pay for the very basics like food, housing, medical care, and heating?Somewhat hard05/08/2024HQ-2AnswerDate RecordedPHQ-9 Total Ysllh600Hunger Vital SignAnswerDate RecordedWithin the past 12 months, you worried that your food would run out before you got the money to buy more.Never true11/15/2024Within the past 12 months, the food you bought just didn't last and you didn't have money to get more.Never true11/15/2024PRAPARE - TransportationAnswerDate RecordedIn the past 12 months, has lack of transportation kept you from medical appointments or from getting medications?No 11/15/2024In the past 12 months, has lack of transportation kept you from meetings, work, or from getting things needed for daily living?No11/15/2024 Housing Stability Vital SignAnswerDate RecordedUnable to Pay for Housing in the Last YearNot on file05/08/2024Number of Places Lived in the Last YearNot on file 05/08/2024In the last 12 months, was there a time when you did not have a steady place to sleep or slept in [facility] (including now)?No05/08/2024Housing Stability Vital SignAnswerDate RecordedIn the last 12 months, was there a time when you were not able to pay the mortgage or rent on time?No11/15/2024In the past 12 months, how many times have you moved where you were living? At any time in the past 12 months, were you homeless or living in a half-way (including now)?No11/15/2024Food InsecurityAnswerDate RecordedWithin the past 12 months, you worried that your food would run out before you got the money to buy more.Within the past 12 months, the food you bought just didn't last and you didn't have money to get more.CommentsNoSex and Gender InformationValueDate RecordedSex Assigned at IaaquVgknqh70/13/2025 9:45 AM EDTLegal QgnApottr80/10/2013 10:13 AM ESTGender FlnhueugZlghto26/05/2021 8:11 AM ESTSexual HvflhvoyfamZvqfdeku65/05/2021 8:11 AM ESTOccupationIndustryJob Start DateJob End DateNot on fileNot on fileNot on fileNot on filedocumented as of this encounter Medications at Time of Discharge MedicationSigDispense QuantityRefillsLast FilledStart DateEnd Date dapagliflozin (FARXIGA) 10 MG tablet Indications:Stage 3a chronic kidney disease (HCC),Pre-diabetesTake 1 tablet by mouth every morning 90 tablet clindamycin (CLEOCIN) 300 MG capsule 04/13/2025 ALPRAZolam (XANAX) 0.25 MG tablet Take 1 tablet by mouth nightly.03/14/2025 nortriptyline (PAMELOR) 50 MG capsule Take 3 capsules by mouth famotidine (PEPCID) 20 MG tablet Indications:Gastroesophageal reflux disease without esophagitisTAKE 1 TABLET TWICE A DAY 180 tablet gemfibrozil (LOPID) 600 MG tablet Indications:Mixed hyperlipidemiaTAKE 1 TABLET TWICE A DAY 30 MINUTES BEFORE BREAKFAST AND SUPPER 180 tablet rOPINIRole (REQUIP) 1 MG tablet Indications:Restless legsTake 1 tablet by mouth 3 times daily 270 tablet linaclotide (LINZESS) 145 MCG capsule Indications:Drug-induced constipationTake 1 capsule by mouth daily 90 capsule cephALEXin (KEFLEX) 250 MG capsule Indications:Frequent UTITake 1 capsule by mouth daily as needed (post-coital UTI prophylaxis) 30 capsule calcium carbonate (OSCAL) 500 MG TABS tablet Take 1 tablet by mouth 2 times daily montelukast (SINGULAIR) 10 MG tablet Indications:Seasonal allergiesTAKE 1 TABLET NIGHTLY 90 tablet fluticasone (FLONASE) 50 MCG/ACT nasal spray Indications:Seasonal allergiesUSE 2 SPRAYS IN EACH NOSTRIL DAILY 48 g baclofen (LIORESAL) 10 MG tablet Take 1 tablet by mouth jzrvzud4504/19/2022 pregabalin (LYRICA) 300 MG capsule Take 1 capsule by mouth 2 times daily.02/20/2022 Biotin 1000 MCG TABS Take 1 tablet by mouth daily02/26/[address] 1 TABLET ON OR UNDER THE TONGUE EVERY OTHER DAY01/02/2022 sertraline (ZOLOFT) 100 MG tablet Take 2 tablets by mouth daily Currently decreasing this reyjmciecq32/26/2020 b complex vitamins capsule Take 1 capsule by mouth daily Cholecalciferol (VITAMIN D) 2000 UNITS CAPS capsule Indications:Vitamin D deficiencyTake 1 capsule by mouth daily. 30 capsule 12111/12/2013documented as of this encounter Plan of Treatment DateTypeDepartmentCare Team (Latest Contact Info)Sphspkzrczq40/23/2025 11:00 AM EDTOffice Visit [address] [address] Felipe Adam MD [address] [place] [address] Return in about 3 months (around 07/19/2025).documented as of this encounter Procedures Procedure NamePriorityDate/TimeAssociated DiagnosisCommentsSEDIMENTATION RATE Qclhnms5507/21/2025 3:37 PM EDT ECEEhqpygy14/17/2025 3:37 PM EDT C-REACTIVE JVJUWOFXjjbdhf79/17/2025 3:37 PM EDT BASIC METABOLIC MOGDOIetdecb25/17/2025 3:37 PM EDT documented in this encounter Results * (ABNORMAL) Sedimentation Rate (07/21/2025 3:37 PM EDT)ComponentValueRef Range Test MethodAnalysis TimePerformed AtPathologist SignatureSed Rate, Nmyadwlzc07 (H)0 - 20 mm/Hr07/21/2025 3:37 PM EDTMMARTIN [facility] LABSpecimen (Source) Anatomical Location / LateralityCollection Method / VolumeCollection Time Received Time07/21/2025 3:37 PM EDT1 3:38 PM EDT Narrative Authorizing ProviderResult TypeResult StatusKimberrubens Segura PAHEMATOLOGY ORDERABLESFinal ResultPerforming OrganizationAddressCity/State/ZIP CodePhone Number [facility] [address] [place] [address] [phone] * (ABNORMAL) C-Reactive Protein (07/21/2025 3:37 PM EDT)ComponentValueRef Range Test MethodAnalysis TimePerformed AtPathologist JtkvjdjaaJRE43.1(H)0.0 - 5.0 mg/L1 3:37 PM EDTMERCY [facility] LABSpecimen (Source)Anatomical Location / LateralityCollection Method / VolumeCollection TimeReceived Time 07/21/2025 3:37 PM EDT1 3:38 PM EDT Narrative Authorizing ProviderResult TypeResult StatusKimberly Colton PACHEMISTRY ORDERABLESFinal ResultPerforming OrganizationAddressCity/State/ZIP CodePhone Number [facility] [address] [place] [id number], [facility] [phone] * (ABNORMAL) CBC (07/21/2025 3:37 PM EDT)ComponentValueRef RangeTest Method Analysis TimePerformed AtPathologist SignatureWBC9.93.5 - 11.0 k/uL07/21/2025 3:37 PM EDTMSIERRA [facility]ERY [facility] [place] LABRBC3.90(L)4.00 - 5.20 m/uL07/21/2025 3:37 PM EDTMERCY [facility] NGJOlucqiuzit45.0(L)12.0 - 16.0 g/dL07/21/2025 3:37 PM EDTMSIERRA VISTA REG[facility]ERY [facility] APBXywzjfmrke23.3(L)36.0 - 46.0 %07/21/2025 3:37 PM EDTMERCY [facility] AHFKOA22.980.0 - 100.0 fL07/21/2025 3:37 PM EDTMERCY [facility] DQSDGE58.226.0 - 34.0 pg07/21/2025 3:37 PM EDTMERCY [facility] DLPLRXT26.131.0 - 37.0 g/dL07/21/2025 3:37 PM EDTMERCY [facility] WQAWXS83.1(H)12.1 - 15.2 %07/21/2025 3:37 PM EDTMERCY [facility] Qtggibfdu893056 - 450 k/uL07/21/2025 3:37 PM EDTMPosiq [place] LABMPV 11.46.0 - 12.0 fL07/21/2025 3:37 PM EDPosiq [facility] LABSpecimen (Source)Anatomical Location / LateralityCollection Method / VolumeCollection TimeReceived Time07/21/2025 3:37 PM EDT1 3:38 PM EDT Narrative Authorizing ProviderResult TypeResult StatusKimberrubens Segura PAHEMATOLOGY ORDERABLESFinal ResultPerforming OrganizationAddressCity/State/ZIP CodePhone Number [facility] [address] [place] [address], [facility] [phone] * (ABNORMAL) Basic Metabolic Panel (07/21/2025 3:37 PM EDT)ComponentValueRef RangeTest MethodAnalysis TimePerformed AtPathologist BnfaysamePzzqpa632465 - 144 mmol/L1 3:37 PM EDPosiq [facility] LABPotassium4.43.7 - 5.3 mmol/L1 3:37 PM EDTMPosiq [facility] GPIHfkplhqg22477 - 107 mmol/L 07/21/2025 3:37 PM EDPosiq [facility] KGAPK25672 - 31 mmol/L1 3:37 PM EDPosiq [place] LABAnion Gap8(L)9 - 17 mmol/L1 3:37 PM EDAssuraMed [facility] WWUSrdqrsf2199 - 99 mg/dL07/21/2025 3:37 PM EDT [facility] ASAHJZ487 - 20 mg/dL07/21/2025 3:37 PM EDAssuraMed [place] LABCreatinine1.4(H)0.5 - 0.9 mg/dL07/21/2025 3:37 PM EDTMPosiq SYDNEE LABEst, Glom Filt Rate47(L)>60 mL/min/1.11k21507/21/2025 3:37 PM EDT [facility] LABComment: ? These results are not intended for use in patients <18 years of age. ? eGFR results are calculated without a race factor using the 2020 CKD-EPI equation. Careful clinical correlation is recommended, particularly when comparing to results calculated using previous equations. The CKD-EPI equation is less accurate in patients with extremes of muscle mass, extra-renal metabolism of creatine, excessive creatine ingestion, or following therapy that affects renal tubular secretion. Yfmvljg47.18.6 - 10.4 mg/dL07/21/2025 3:37 PM [facility] Specimen (Source)Anatomical Location / LateralityCollection Method / Volume Collection TimeReceived Time07/21/2025 3:37 PM EDT1 3:38 PM EDT Narrative Authorizing ProviderResult TypeResult StatusKimberly Colton PACHEMISTRY ORDERABLESFinal ResultPerforming OrganizationAddressCity/State/ZIP CodePhone Number [facility] [address] [place] [address], [facility] [phone] documented in this encounter Visit Diagnoses Not on filedocumented in this encounter Additional Health Concerns InfectionOnset DateLast IndicatedResolved TimeMRSA Comment:Blood and spine 05/16/2016MDRO (multi-drug resistant organism) Comment:E. Coli urine 05/02/20222documented as of this encounter Care Teams Team MemberRelationshipSpecialtyStart DateEnd Date Felipe Adam MD [address] [place] [address] PCP - GeneralInternal Medicine11/14/11documented as of this encounter
--- OUTSIDE RECORDS SUMMARY | 2025-07-25 16:04 | XMS_ITS | Clinical Summary ---
Author Organization [facility] Address [address] [place] [address] Phone Care Team Providers Care Rectification Printer Name Role Phone Unavailable Primary Care Provider Unavailabl e Social History Tobacco UseTypesPacks/DayYears UsedDateSmoking Tobacco: Never Assessed CommentsUnknownSex and Gender InformationValueDate RecordedSex Assigned at Not on fileLegal WxuOhgabf50/25/2022 12:57 PM ESTGender IdentityNot on file Sexual OrientationNot on file Plan of Treatment Not on file
--- OUTSIDE RECORDS SUMMARY | 2025-07-25 16:05 | XMS_ITS | Clinical Summary ---
Author Organization [facility] Address [address] [place] [address] Care Team Providers Care Doll Dresser Name Role Phone Alcides Adam MD Primary Care Provider [phone] Allergies Active AllergyReactionsCriticalityNoted DateCommentsChlorhexidineRashLow 03/03/20236111Zzkuzquctt61/25/2024 Made her feel overly thirsty and caused [...] mg) by mouth at bedtime 90 tablet 301/27/933748/27/2026Active pregabalin (Lyrica) 300 MG capsule Indications:Idiopathic progressive [...] 60 tablet 5Active Active Problems ProblemNoted DateDiagnosed UpayXoqymkqukocdxq88/04/2025 Assessment & Plan (03/14/2025 5:41 PM EDT): Add alprazolam 0.25 ahs. Orders: ALPRAZolam (Xanax) 0.25 MG tablet; Take 1 tab 30-45 min before PAP therapy nightly Assessment & Plan (12/06/2024 1:26 PM EST): Once machine is received, pt to call for Rx alprazolam 0.25 hs for better tolerance of mask on face. Trochanteric bursitis of both hips08/24/2023olyneuropathy due to type 2 diabetes lqekhuzb71/16/2023Obstructive sleep apnea05/20/2023Hypersomnia 05/20/2023 Assessment & Plan (03/14/2025 5:41 PM EDT): Discussed modafinil. May start 100 qam if/when desired., but first optimize PAP use. Cervical paraspinal muscle spasm05/20/2023MRSA (methicillin resistant Staphylococcus aureus) bmexfkpbzw65/15/2023ain in left foot05/19/2023cute csptioeckaz59/04/2023ilateral carpal tunnel vrsfhtqa15/04/2023arpal tunnel syndrome of left wrist03/08/2023ervical disc nfloxfiicteu98/04/2023harcot's joint, left ankle and foot03/08/2023hronic migraine without aura, not intractable, without status dvquaglrzvk75/04/2023losed fracture of metatarsal bone03/08/2023losed nondisplaced fracture of second metatarsal bone of left foot03/08/2023losed fracture of navicular bone of foot03/08/2023losed nondisplaced fracture of intermediate cuneiform of left foot03/08/2023 Contracture, left ankle03/08/2023iscitis of thoracic oeafuq5803/08/2023 Disturbance of skin ldbznrybw82/04/2023Elevated C-reactive protein (CRP) 03/08/2023Idiopathic progressive nlawvuhtmhfown43/04/2121Agvpslukiia22/04/2023 Infection of thoracic spine03/08/20236227Reangrfl94/04/2023Limb pain03/08/2023Lumbar bmfuryiudhavs40/04/2023Lumbosacral spondylosis without xifwbwnuys81/04/2023 Hsiajbkt03/04/7816Zoundfv20/04/2023Hereditary and idiopathic neuropathy, /04/2023rimary osteoarthritis, unspecified ankle and foot 03/08/2023Tarsal tunnel ltncoudg43/04/2023Type 2 diabetes mellitus with diabetic nscglexdkutngh37/04/2023re-/26/5047Allzgc12/25/2022Thyroid nodule 2Restless legs05/13/2021OSA (obstructive sleep apnea)05/11/2020 Assessment [...] Orders: Ambulatory referral to Neurology Epidural abscess ([facility])08/20/2018Septic hspzajsrv05/16/2018Abdominal pain 05/04/2018Pure etmxqnhtzuygfdlkm16/31/4343Qucycpiybgunhk47/31/2018Neoplasm of uncertain behavior of skin02/05/2018Peripheral /27/2018Basal cell carcinoma of skin of face09/16/2017 Overview (03/08/2023): Added automatically from request for surgery [id number] Overview: Added automatically from request for surgery [id number] Mixed iqayhetlpnzgsg42/15/2017Carpal tunnel syndrome of right wrist03/05/2017 Vitamin D mamihhxndh21/08/2014GERD (gastroesophageal reflux disease)09/08/2014 Chronic glomerulonephritis with pathological lesion in dsvhos0406/09/2014Chronic renal impairment, stage 3 (moderate)06/09/2014Thoracic degenerative disc disease 05/09/2014Seasonal vrmmneisq46/11/2014CRI (chronic renal insufficiency) 10/25/2013Depression with jtlxbot0206/24/20131432Gacxlltgiuytw51/20/2013Fatigue 07/20/2012 Encounters DateTypeDepartmentCare CxhvRcwybqkittb94/20/2025 12:30 PM EDTAncillary Procedure [facility] [address] [facility] [address] [place] [phone] Cervical paraspinal muscle spasm05/24/2025 11:30 AM EDTOffice Visit [facility] [address] [facility] [address] [place] [address] Jennie Barajas APRN-GRETEL BUCK (obstructive sleep apnea) (Primary Dx); Cervical paraspinal muscle spasm; Cervical bopikqfxwefei18/20/2025Telephone [facility] [address] [facility] [address] [place] [address] Gauri Jay MA TENS05/24/2025amboo flowsheet [facility] [address] [place] [address] Jennie Barajas APRN-GRETEL 05/24/20256180Kpdcec89/19/2025Telephone [facility] [address] [facility] [address] [place] [address] Nash Block MD from Last 3 Months [...] ValueDate RecordedSex Assigned at BirthNot on fileLegal JdaGbahjp39/15/2023 7:36 PM EDTGender IdentityNot on fileSexual OrientationNot on file Last Filed Vital Signs Vital SignReadingTime TakenCommentsBlood Pmbipmmx566/80005/24/2025 11:47 AM EDT Sggaz50169 12:32 PM EDTTemperature--Respiratory Fcgd729105/24/2025 11:47 AM EDTOxygen Msmcbdnaqo71%05/24/2025 11:47 AM EDTInhaled Oxygen Concentration-- Ddppqt73.3 kg (210 lb)05/24/2025 11:47 AM VSZLxajod349.5 cm (5' 2 )05/24/2025 11:47 AM EDTBody Mass Index38.4108 11:47 AM EDT Plan of Treatment DateTypeDepartmentCare Team (Latest Contact Info)Kdxduimxfyj62/19/2025 1:00 PM ESTOffice Visit [facility] [address] [address] Jennie Barajas, SCREENING TECHNICIAN-[facility] [address] [facility] [place], [place] [address] 08/29/2025 11:45 AM ESTOffice Visit [facility] [address] [address] Nash Block MD [address] [facility] [address] [id number] Procedures Procedure NamePriorityDate/TimeAssociated DiagnosisCommentsXR CERVICAL SPINE COMPLETE 4-5 BXQPYKnlvqtu09/20/2025 12:45 PM EDT Cervical paraspinal muscle spasm [...] abnormality. ELECTRONICALLY SIGNED BY: Gregorio Davila DO Authorizing ProviderResult TypeResult StatusJessica Barajas SCREENING TECHNICIAN-CNPIMG XR PROCEDURESFinal Result from Last 3 Months Insurance Care Teams Team MemberRelationshipSpecialtyStart DateEnd Date Back, MD Alcides [address] [place] [address] PCP - GeneralFamily Medicine12/08/24
--- OUTSIDE RECORDS SUMMARY | 2025-07-25 16:05 | XMS_ITS | Clinical Summary ---
Author Organization [facility] Address [address] [place] [address] Care Team Providers Care Barley Steeper Name Role Phone BackAlcides MD Primary Care Provider [phone] Allergies No known active allergies Medications MedicationSigDispense [...] 08/19/2017Active Active Problems ProblemNoted DateDiagnosed DateBasal cell wbnqmmoxf39/26/2017 Overview (09/29/2017): Added automatically from request for surgery [id number] Basal cell carcinoma of skin of face09/16/2017Neoplasm of uncertain behavior of skin Social History Tobacco UseTypesPacks/DayYears UsedDateSmoking Tobacco: NeverSmokeless Tobacco: NeverAlcohol UseStandard Drinks/WeekCommentsNo0 (1 standard drink = 0.6 oz pure alcohol)CommentsUnknownSex and Gender InformationValueDate RecordedSex Assigned at BirthNot on fileLegal InuAjwnyo83/06/2017 7:26 PM ESTGender Identity Uuciws5906/25/2017 9:30 AM EDTSexual OrientationNot on file Last Filed Vital Signs Vital SignReadingTime TakenCommentsBlood Spuoqtre326/78011/24/2017 12:00 PM EST Cqyvx831811/24/2017 12:00 PM AAOLlibdyvvcnt69.6 ??C (97.9 ??F)11/24/2017 12:00 PM ESTRespiratory Idyd115410/09/2017 11:44 AM ESTOxygen Vvgswdltwr21%10/09/2017 11:44 AM ESTInhaled Oxygen Concentration--Fxopls399.5 kg (221 lb 8 oz)02/26/2022 2:01 PM QXWSutgjz507.8 cm (5' 2.5 )02/26/2022 2:07 PM EDTBody Mass Index39.87 02/26/2022 2:01 PM EDT Plan of Treatment Health MaintenanceDue DateLast DoneCommentsHEPATITIS C VIRUS GQNSVZQFN1979 HIV SCREENING WFCOWTALGK78/25/1994HEP B VACCINE (1 of 3 - 19+ 3-dose series) 1998CERVICAL CANCER SCREENING GYXKQFUPSG51/25/2000LIPID SCREENING 2019MAMMOGRAM SCREENING PPMGXEYTRV58/25/2019COLORECTAL CANCER SCREENING RKDIGGOYAT08/25/0288BTECHGL14COVID-19 VACCINE ( - season)2025INFLUENZA VACCINE (#1)2025TDAP (ADULT)Mpygiupgn33/05/2014 PNEUMOCOCCAL VACCINE SERIESAged OutNo longer eligible based on patient's age to complete this topic Insurance Care Teams Team MemberRelationshipSpecialtyStart DateEnd Date Back, MD Alcides [address] [place] [address] PCP - GeneralInternal Mpipzegu68/27/17
--- OUTSIDE RECORDS SUMMARY | 2025-07-25 16:05 | XMS_ITS | Clinical Summary ---
Author Organization [facility] Address [address] [place] [address] Care Team Providers Care Regulatory Affairs Consultant Name Role Phone Felipe Adam MD Primary Care Provider [phone] Allergies Active AllergyReactionsCriticalityNoted DateCommentsChlorhexidineRashLow 03/03/2023TopiramateOther (See Comments)10/29/2023 [...] InformationValueDate RecordedSex Assigned at BirthNot on fileLegal NooAvpnfj16/12/2014 10:22 AM EDTGender RgyleutaJqrzhw38/07/2025 9:28 AM ESTSexual AwyoauefzdhNvleyxyy90/07/2025 9:28 AM EST Last Filed Vital Signs Vital SignReadingTime TakenCommentsBlood Qirwmjqu425/8703/03/2023 2:44 PM EDT Htykb742803/03/2023 2:44 PM SZPMcxmcqubkmo12.8 ??C (98.3 ??F)10/11/2024 9:42 AM ESTRespiratory Pnck268101/06/2023 5:48 PM EDTOxygen Uvrvzihfyx78%01/06/2023 4:22 PM EDTInhaled Oxygen Concentration--Prtskq45.8 kg (209 lb)10/11/2024 9:42 AM EST Ncjkfc583.5 cm (5' 2 )10/11/2024 9:42 AM ESTBody Mass Index38.23010/11/2024 9:42 AM EST Plan of Treatment DateTypeDepartmentCare Team (Latest Contact Info)Vowqtjgtgbe37/08/2026 10:30 AM ESTOffice Visit [facility] [address] [facility] [place] [address] Dimas Adair MD [address] [place] [address] Health MaintenanceDue DateLast DoneCommentsCT Hhflbgeflocd1979Fecal DNA 1979Fecal occult blood test (FOBT,FIT)1979Flexible sigmoidoscopy 1979Depression Screening/Follow-Up (PHQ-2/9)1991Hepatitis C Hsenbuaim52/25/6560Ojrbapxib31/25/2019Pap SmearCervical Cancer Udadnxtfk82/16/2022HPV/Yafqnq99Wellness Visit04/11/2023 04/11/2022Tetanus: Every 10yrs (RETIRED)/02/2014COVID-19 Vaccine ( season)2025Influenza Vaccine (#1)2824Qverageeymy38/07/2028 12/09/2017Colorectal Cancer Screening/Wqerwyhoso92/07/2028HIV ScreeningCompleted 10/20/2017Pneumococcal VaccineAged OutNo longer eligible based on patient's age to complete this topic Procedures Procedure NamePriorityDate/TimeAssociated DiagnosisCommentsHIV 1/2 SCREEN (4TH GENERATION)Kwstjky3810/20/2017 5:25 PM EST Encounter for general adult medical examination without abnormal findings THINPREP PAP EMAMDCijfwvm89/16/2017 12:00 AM EDT HIGH RISK HPV WITH GENOTYPE 16,80Fomyqrj26/16/2017 12:00 AM EDT Encounter for general adult medical examination without abnormal findings from Last 3 Months or Most Recently Relevant to Health Maintenance Results * HIV Antibody (HIV1/HIV2) (10/20/2017 5:25 PM EST)ComponentValueRef RangeTest MethodAnalysis TimePerformed AtPathologist SignatureHIV 1-2 ScreenNegative Usubhtnl21/17/2018 9:47 AM [facility] LABSpecimen (Source)Anatomical Location / LateralityCollection Method / VolumeCollection TimeReceived TimeBloodBLOOD SPECIMEN / Zaityen1910/20/2017 5:25 PM EST10/20/2017 10:58 PM EST Narrative [facility] - 10/21/2017 9:47 AM EST Test performed using [employer] Immunodiagnostic system. Authorizing ProviderResult TypeResult StatusMichuyen MATHEWS BLOOD ORDERABLESFinal ResultPerforming OrganizationAddressCity/State/ZIP CodePhone Number [facility] [address] [place] [phone] * High Risk HPV with Genotype 16,18 (03/20/2017 12:00 AM EDT)ComponentValueRef RangeTest MethodAnalysis TimePerformed AtPathologist SignatureHPV 16Negative Wzcmpuis08/28/2017 2:01 PM [facility] 18Negative Qbrckhts57/28/2017 2:01 PM [facility], Other HR TahwpVyyccwluYqcgjbwl00/28/2017 2:01 PM [facility] Specimen (Source)Anatomical Location / LateralityCollection Method / Volume Collection TimeReceived TimePap, Liquid BasedCERVIX UTERI STRUCTURE / Unknown 9:32 PM EDT Narrative [facility] - 04/01/2017 2:01 PM EDT Assay performed using [employer] 4800 system utilizing Real-Time PCR to amplify target HPV DNA. This system specifically identifies HPV16 and HPV18 while concurrently detecting the other twelve high risk types (31,33,35,39,45,51,52,56,58,59,66,68). Authorizing ProviderResult TypeResult StatusMelissa Pinky Richard DOBODY FLUIDS AND STOOLS ORDERABLESFinal ResultPerforming OrganizationAddress City/State/ZIP CodePhone Number [facility] [address] [place] [phone] * Thinprep Pap Smear (03/20/2017 12:00 AM [...] HPV DNA. This system specifically identifies HPV16 hznWVA73 while concurrently detecting the other twelve high risk types(31,33,35,39,45,51,52,56,58,59,66,68). Completed by LT on 2017-04-02 Electronically Signed By Arielle NEFF (ASCP) , Information Systems Administrator (Case signed 03/30/2017) The Papanicolaou smear is [...] Gaspar TypeRelation to PatientDate of BirthPhone Billing AddressPersonal/VsfgkiNubx1980 [phone] (Home) [address] [place] [address] Care Teams Team MemberRelationshipSpecialtyStart DateEnd Date Back, MD Felipe [address] [phone] (Work) PCP - GeneralInternal Medicine03/26/15
--- OUTSIDE RECORDS SUMMARY | 2025-07-25 16:05 | XMS_ITS | Clinical Summary ---
Author Organization [facility] Address [address], [address] [place] [address] Care Team Providers Care Financial Sales Representative Name Role Phone Felipe Adam MD Primary Care Provider [phone] Allergies Active AllergyReactionsCriticalityNoted LulkGlbelotxRcxnznntqv44/25/2024 Made her feel overly thirsty and caused bad smell and taste. Medications MedicationSigDispense QuantityRefillsLast FilledStart DateEnd DateStatus Cholecalciferol (VITAMIN D) 2000 UNITS CAPS capsule Indications:Vitamin D deficiencyTake 1 capsule by mouth daily. 30 capsule 12111/12/2013ctive b complex vitamins capsule Take 1 capsule by mouth dailyActive sertraline (ZOLOFT) 100 MG tablet Take 2 tablets by mouth daily Currently decreasing this goafshemes75/26/2020 Active pregabalin (LYRICA) 300 MG capsule Take 1 capsule by mouth 2 times daily.02/20/2022ctive Biotin 1000 MCG TABS Take 1 tablet by mouth daily02/26/2022ctive NURTEC [address] 1 TABLET ON OR UNDER THE TONGUE EVERY OTHER DAY01/02/2022ctive baclofen (LIORESAL) 10 MG tablet Take 1 tablet by mouth ciwkkhq8904/19/2022ctive montelukast (SINGULAIR) 10 MG tablet Indications:Seasonal allergiesTAKE 1 TABLET NIGHTLY 90 tablet ctive fluticasone (FLONASE) 50 MCG/ACT nasal spray Indications:Seasonal allergiesUSE 2 SPRAYS IN EACH NOSTRIL DAILY 48 g ctive calcium carbonate (OSCAL) 500 MG TABS tablet Take 1 tablet by mouth 2 times dailyActive cephALEXin (KEFLEX) 250 MG capsule Indications:Frequent UTITake 1 capsule by mouth daily as needed (post-coital UTI prophylaxis) 30 capsule 3Active linaclotide (LINZESS) 145 MCG capsule Indications:Drug-induced constipationTake 1 capsule by mouth daily 90 capsule 4Active rOPINIRole (REQUIP) 1 MG tablet Indications:Restless legsTake 1 tablet by mouth 3 times daily 270 tablet 5Active gemfibrozil (LOPID) 600 MG tablet Indications:Mixed hyperlipidemiaTAKE 1 TABLET TWICE A DAY 30 MINUTES BEFORE BREAKFAST AND SUPPER 180 tablet 5Active famotidine (PEPCID) 20 MG tablet Indications:Gastroesophageal reflux disease without esophagitisTAKE 1 TABLET TWICE A DAY 180 tablet 5Active ALPRAZolam (XANAX) 0.25 MG tablet Take 1 tablet by mouth nightly.5Active nortriptyline (PAMELOR) 50 MG capsule Take 3 capsules by mouth iamzcwd54/ctive clindamycin (CLEOCIN) 300 MG capsule 5Active dapagliflozin (FARXIGA) 10 MG tablet Indications:Stage 3a chronic kidney disease (HCC),Pre-diabetesTake 1 tablet by mouth every morning 90 tablet 5Active fluconazole (DIFLUCAN) 150 MG tablet Indications:Vaginal yeast infectionTake 1 tablet by mouth once for 1 dose 1 tablet Expired Active Problems ProblemNoted DateDiagnosed DatePre-nkociidi68/26/2022 Assessment & Plan (04/18/2025 9:56 AM EDT): Watch a diabetic diet. Exercise as tolerated. Start on Farxiga 10 mg daily. HgbA1C in 3 months. Orders: dapagliflozin (FARXIGA) 10 MG tablet; Take 1 tablet by mouth every morning Hemoglobin A1C; Future Basic Metabolic Panel; Future Osogkn8205/29/2022Thyroid gwkzcj8605/27/2022estless legs05/13/2021 Assessment & Plan (11/15/2024 3:08 PM EST): Controlled on Requip. No changes at this time. BUCK on CPAP05/11/2020 Assessment & Plan (11/15/2024 3:08 PM EST): Undergoing the process of getting a new machine. Epidural pscumnh4508/20/2018Septic dalhlqsca79/16/2018Neoplasm of uncertain behavior of skin02/05/2018Peripheral yorwlvgwyf58/27/2018Basal cell carcinoma of skin09/29/2017 Overview (02/05/2018): Overview: Added automatically from request for surgery [id number] Basal cell carcinoma of skin of face09/16/2017Mixed rvszdxcxnfifrk57/15/2017 Assessment & Plan (11/15/2024 3:08 PM EST): [...] Lipid Panel; Future Carpal tunnel syndrome on right03/05/2017Vitamin D dhacwfaurt04/08/2014 Assessment & Plan (11/15/2024 3:08 PM EST): Controlled on Vitamin D deficiency. Would recommend taking K2 for bone health. GERD (gastroesophageal reflux disease)09/08/2014 Assessment & Plan (11/15/2024 3:08 PM EST): Controlled on Pepcid. No change in medication. Chronic renal impairment, stage 3 (moderate)06/09/2014Chronic glomerulonephritis with pathological lesion in uhmrjv6306/09/2014Thoracic degenerative disc disease 05/09/2014Seasonal xyxpxjqls87/11/2014CRI (chronic renal insufficiency) 10/25/2013 Assessment & Plan (11/15/2024 3:08 PM EST): Renal function has been stable. Avoid NSAIDS. Follows with Nephrology yearly (Dr. Forbes). Orders: Comprehensive Metabolic Panel; Future Depression with bxqcftn0906/24/2013 Assessment & Plan (11/15/2024 3:08 PM EST): Has been stable on Zoloft. No change in medication. Yydzqnibehtll37/20/2013 Assessment & Plan (11/15/2024 3:08 PM EST): HgbA1C has been normal. Will repeat HgbA1C and Insulin level with next labs. Orders: Hemoglobin A1C; Future Insulin, Total; Future Chronic jhgfnpk4807/20/20121668Atktqug31/16/2012Elevated C-reactive protein (CRP)MRSA (methicillin resistant Staphylococcus aureus) septicemiaDiscitis of thoracic regionInfection of thoracic spine Resolved Problems ProblemNoted DateDiagnosed DateResolved WtsjCrrecc39Lactic jdkubgpy10Mixed hypercholesterolemia and hypertriglyceridemia Depressioncute metabolic encephalopathy 05/11/2020MRSA oetosucdrs61/07/2020 Encounters DateTypeDepartmentCare FwcmIfxcdtggohj21/17/2025 3:25 PM EDT - 07/21/2025 11:59 PM EDTHospital Encounter [facility] Laboratory [address] [place] [address] Discharge Disposition: Home or Self Care06/29/2025Orders Only [address] [address] Dimitris Stephens MD 06/19/2025Refill [address] [address] Felipe Adam MD Medication Igjdko6306/19/2025Orders Only [address] [address] Myah Gao MA Stage 3a chronic kidney disease (HCC); Pre-akusclxg46/11/2025bstract [address] [address] Felipe Adam MD 06/12/2025 9:56 AM EDT - 06/12/2025 11:59 PM EDTHospital Encounter [facility] [address] [place] [address] Discharge Disposition: Home or Self Care05/15/2025 12:07 PM EDT - 05/15/2025 11:59 PM EDTHospital Encounter [facility] Laboratory [address] [place] [address] Discharge Disposition: Home or Self Care05/04/2025Telephone [address] [address] Felipe Adam MD Referral - General (Infectious disease referral canceled)04/25/2025bstract [address] [address] Felipe Adam MD 04/24/2025[address] [phone] Felipe Adam MD Yeast Infectionfrom Last 3 Months Immunizations ImmunizationAdministration DatesNext DueTDaP, ADACEL (age 10y-64y), BOOSTRIX (age 10y+), IM, 0.5mL09/08/2014 Family History Medical HistoryRelationNameCommentsCancerMotherGlenna MeadelungDiabetesMother Madyson MeadeHigh Blood PressureMotherGlenna MeadeRelationNameStatusComments MotherGlenna Maurisio Social History Tobacco UseTypesPacks/DayYears UsedDateSmoking Tobacco: NeverPassive Smoke Exposure: NeverSmokeless Tobacco: Never Tobacco Cessation:Counseling Given: Not Answered Alcohol UseStandard Drinks/WeekCommentsNo0 (1 standard drink = 0.6 oz pure alcohol)[facility] UtilitiesAnswerDate RecordedIn the past 12 months has the [employer], oil, or water [employer] threatened to shut off services in your home?No 11/15/2024UDIT-CAnswerDate RecordedQ1: How often do you have a [...] like food, housing, medical care, and heating?Somewhat hard 05/08/2024HQ-2AnswerDate RecordedPHQ-9 Total Dlvke159Hunger Vital Sign AnswerDate RecordedWithin the past 12 months, you worried that your food would run out before you got the money to buymore.Never true11/15/2024Within the past 12 months, the food you bought just didn't last and you didn't have money to get more.Never true11/15/2024PRAPARE - TransportationAnswerDate RecordedIn the past 12 months, has lack of transportation kept you from medical appointments or from getting medications?No11/15/2024In the past 12 months, has lack of transportation kept you from meetings, work, or from getting things needed for daily living?No11/15/2024Housing Stability Vital SignAnswerDate RecordedUnable to Pay for Housing in the Last YearNot on file05/08/2024Number of Places Lived in the Last YearNot on file05/08/2024In the last 12 months, was there a time when you did not have a steady place to sleep or slept in [facility] (including now)?No05/08/2024Housing Stability Vital SignAnswerDate RecordedIn the last 12 months, was there a time when you were not able to pay the mortgage or rent on time?No11/15/2024In the past 12 months, how many times have you moved where you were living?t any time in the past 12 months, were you homeless or living in a fdc (including now)?No11/15/2024Food InsecurityAnswerDate RecordedWithin the past 12 months, you worried that your food would run out before you got the money to buymore.Within the past 12 months, the food you bought just didn't last and you didn't have money to get more.1 11/15/2024CommentsNoSex and Gender InformationValueDate RecordedSex Assigned at LqphcJjbbeu08/13/2025 9:45 AM EDTLegal KlxCdwyag31/10/2013 10:13 AM ESTGender UdmdfebqTrykhc31/05/2021 8:11 AM ESTSexual OrientationStraight 10/09/2020 8:11 AM ESTOccupationIndustryJob Start DateJob End DateNot on fileNot on fileNot on fileNot on file Last Filed Vital Signs Vital SignReadingTime TakenCommentsBlood Tkuhyhrh858/7007 9:32 AM EDT Srbog6818 9:32 AM XJQLrktuvtmetf75.2 ??C (99 ??F)04/04/2025 9:15 PM EDT Respiratory Kdgd562704/04/2025 11:15 PM EDTOxygen Qlviiuislu67%04/18/2025 9:32 AM EDTInhaled Oxygen Concentration--Acslkp96 kg (216 lb)04/18/2025 9:32 AM EDT Lizomp513.4 cm (5')04/04/2025 9:24 PM EDTBody Mass Index42.18004/04/2025 9:24 PM EDT Plan of Treatment DateTypeDepartmentCare Team (Latest Contact Info)Ixjolkkilny68/23/2025 11:00 AM EDTOffice Visit [address] [address] Felipe Adam MD [address] [place] [address] Return in about 3 months (around 07/19/2025).Health MaintenanceDue DateLast Done CommentsHepatitis B vaccine (1 of 3 - 19+ 3-dose series)1998FIT/FOBT: Average risk2024Fecal-DNA (Cologuard): Average risk2024 Sigmoidoscopy/CT htniqdgjhasu40/25/2024TaP/Tdap/Td vaccine (2 - Td or Tdap) /02/2014Flu vaccine (#1)5COVID-19 Vaccine ( - 2023- season)2025Depression Jtydngoqiy39, 02/11/8482S0D test (Diabetic or Prediabetic)6004/14/2025, 11/14/2024, 05/02/2024, Additional history existsGFR test (Diabetes, CKD 3-4, OR last GFR 15-59) 61, 06/12/2025, 05/15/2025, Additional history existsBreast cancer tolbyf62olonoscopyColorectal Cancer Ymdxuj1812/10/20272099Jxnxix03, 11/14/2024, 11/14/2024, Additional history existsHepatitis C ckortjBpevaqbay39/09/2014Cervical cancer screenDiscontinuedPap fusskEeissitmxbqe67/21/2021, 03/20/2017HIV screenCompleted 2Diabetes bvnsfmTfbzdapfayzs81/11/2025, 11/14/2024, 05/02/2024, Additional history existsHPV (without or with Pap)DiscontinuedHPV vaccine (No Doses Required)CompletedHepatitis A vaccineAged OutNo longer eligible based on patient's age to complete this topicHib vaccineAged OutNo longer eligible based on patient's age to complete this topicMeningococcal (ACWY) vaccineAged OutNo longer eligible based on patient's age to complete this topicMeningococcal B vaccineAged OutNo longer eligible based on patient's age to complete this topic Pneumococcal 0-49 years VaccineAged OutNo longer eligible based on patient's age to complete this topicPolio vaccineAged OutNo longer eligible based on patient's age to complete this topic Procedures Procedure NamePriorityDate/TimeAssociated DiagnosisCommentsSEDIMENTATION RATE Oegkbqb3407/21/2025 3:37 PM EDT C-REACTIVE FVTTSFCFqrreyw65/17/2025 3:37 PM EDT EGAHvacasb05/17/2025 3:37 PM EDT BASIC METABOLIC RUHGMNuwtovk16/17/2025 3:37 PM EDT XR FOOT LIMITED XGXTTTWLPZcuitpt33/24/2025 10:53 AM EDTVITAMIN D 25 HYDROXY Fclauby3506/12/2025 9:59 AM EDT PROTEIN, URINE, RHQWQBRdxyjbd77/08/2025 9:59 AM EDT CREATININE, RANDOM USOWXAgisatv15/08/2025 9:59 AM EDT RENAL FUNCTION OIBALKmhfhrc07/08/2025 9:59 AM EDT PTH, MHGBKTBkriete37/08/2025 9:59 AM EDT MORPHOLOGY YSCOGOkkcvgx88/11/2025 12:11 PM EDT SEDIMENTATION GEVIQtekhmj89/11/2025 12:11 PM EDT C-REACTIVE YREIVFKIxyislh41/11/2025 12:11 PM EDT OOLExslvwd26/11/2025 12:11 PM EDT BASIC METABOLIC WMJYXYkhnytl53/11/2025 12:11 PM EDT LIPID CAMVGKsiudub11/11/2025 9:54 AM EDT Mixed hyperlipidemia HEMOGLOBIN N7WLvkzjgx77/11/2025 9:54 AM EDT Hyperglycemia NITA BRIAN DIGITAL SCREEN NUIYLGKJKYllgmhz54/14/2025 11:51 AM EDT Encounter for screening mammogram for malignant neoplasm of breast HIV SWEHYZTglcxne06/09/2022 2:09 PM EDT Encounter for screening for HIV HM PAP NMCRVCuwgwdf78/21/2021HM TZPGSLYTRVGJnshtch04/07/2018HEPATITIS C ANTIBODY Lfdytvd7606/13/2014 8:54 AM EDT from Last 3 Months or Most Recently Relevant to Health Maintenance Results * (ABNORMAL) Sedimentation Rate (07/21/2025 3:37 PM EDT) Only the most recent of2 resultswithin the time period is included. ComponentValueRef RangeTest MethodAnalysis TimePerformed AtPathologist Signature Sed Rate, Dctkesisn03(H)0 - 20 mm/Hr07/21/2025 3:37 PM EDTMERCY [facility]ALTH SYDNEE LABSpecimen (Source)Anatomical Location / LateralityCollection Method / Volume Collection TimeReceived Time07/21/2025 3:37 PM EDT1 3:38 PM EDT Narrative Authorizing ProviderResult TypeResult StatusKimberly Colton PAHEMATOLOGY ORDERABLESFinal ResultPerforming OrganizationAddressCity/State/ZIP CodePhone Number [facility] [address] [place] [address], [facility] [phone] * (ABNORMAL) CBC (07/21/2025 3:37 PM EDT) Only the most recent of2 resultswithin the time period is included. ComponentValueRef RangeTest MethodAnalysis TimePerformed AtPathologist Signature WBC9.93.5 - 11.0 k/uL07/21/2025 3:37 PM EDTMERCY HEALTH SYDNEE LABRBC3.90(L) 4.00 - 5.20 m/uL07/21/2025 3:37 PM EDTMERCY HEALTH [facility] QIXCoqtcrlxtx14.0(L) 12.0 - 16.0 g/dL07/21/2025 3:37 PM EDTMERCY HEALTH [facility] XHNPklfldbuyr59.3(L) 36.0 - 46.0 %07/21/2025 3:37 PM EDTMERCY HEALTH [facility] KXMCCU26.980.0 - 100.0 fL07/21/2025 3:37 PM EDTMERCY HEALTH [facility] IHCOMW73.226.0 - 34.0 pg07/21/2025 3:37 PM EDTMERCY [facility]ALTH [facility] XFYONWL07.131.0 - 37.0 g/dL07/21/2025 3:37 PM EDTMERCY FRESS [place] AVKGID36.1(H)12.1 - 15.2 %07/21/2025 3:37 PM [facility] TPQEvszkwtxy062844 - 450 k/uL07/21/2025 3:37 PM [facility] GAZIMM32.46.0 - 12.0 fL07/21/2025 3:37 PM [facility] Specimen (Source)Anatomical Location / LateralityCollection Method / Volume Collection TimeReceived Time07/21/2025 3:37 PM EDT1 3:38 PM EDT Narrative Authorizing ProviderResult TypeResult StatusAdventist Health [facility]ano PAHEMATOLOGY ORDERABLESFinal ResultPerforming OrganizationAddressty/State/ZIP CodePhone Number [facility] [address] [phone] * (ABNORMAL) C-Reactive Protein (07/21/2025 3:37 PM EDT) Only the most recent of2 resultswithin the time period is included. ComponentValueRef RangeTest MethodAnalysis TimePerformed AtPathologist Signature CRP16.1(H)0.0 - 5.0 mg/L1 3:37 PM EDW[facility] LABSpecimen (Source)Anatomical Location / LateralityCollection Method / VolumeCollection TimeReceived Time07/21/2025 3:37 PM EDT1 3:38 PM EDT Narrative Authorizing ProviderResult TypeResult StatusAd[facility]ist [facility] PACHEMISTRY ORDERABLESFinal ResultPerforming OrganizationAddressCity/State/ZIP CodePhone Number [facility] [address] [phone] * (ABNORMAL) Basic Metabolic Panel (07/21/2025 3:37 PM EDT) Only the most recent of2 resultswithin the time period is included. ComponentValueRef RangeTest MethodAnalysis TimePerformed AtPathologist Signature Bvqjie426481 - 144 mmol/L1 3:37 PM EDKrowderARD LABPotassium 4.43.7 - 5.3 mmol/L1 3:37 PM [facility] ACWLjsoiomf59682 - 107 mmol/L1 3:37 PM [facility] MFVFZ30271 - 31 mmol/L 07/21/2025 3:37 PM ED[facility] LABAnion Gap8(L)9 - 17 mmol/L 07/21/2025 3:37 PM [facility] YIPWqasood9449 - 99 mg/dL07/21/2025 3:37 PM [facility] HGYWFL941 - 20 mg/dL07/21/2025 3:37 PM EDADAMS [facility]ENTERThe [facility] LABCreatinine1.4(H)0.5 - 0.9 mg/dL07/21/2025 3:37 PM [facility] LABEst, Glom Filt Rate47(L)>60 mL/min/1.55g71407/21/2025 3:37 PM [facility] ([facility] LABComment: ? These results are not [...] following therapy that affects renal tubular secretion. Pqlxbfj89.18.6 - 10.4 mg/dL07/21/2025 3:37 PM [facility] Specimen (Source)Anatomical Location / LateralityCollection Method / Volume Collection TimeReceived Time07/21/2025 3:37 PM EDT1 3:38 PM EDT Narrative Authorizing ProviderResult TypeResult StatusKiharshal Segura PACHEMISTRY ORDERABLESFinal ResultPerforming OrganizationAddressCity/State/ZIP CodePhone Number [facility] [address] [place] [address], [facility] [phone] * XR FOOT LIMITED BILATERAL (06/28/2025 10:53 AM EDT)Anatomical RegionLaterality ModalityFootRadiographic Imaging Narrative Authorizing ProviderResult TypeResult StatusHistorical Provider MDIMG DIAGNOSTIC IMAGING ORDERABLESFinal Result * Protein, urine, random (06/12/2025 9:59 AM EDT)ComponentValueRef RangeTest MethodAnalysis TimePerformed AtPathologist SignatureTotal Protein, Urine<4 mg/dL06/12/2025 9:59 AM EDTMERCY LABORATORIESComment:No normal range established.Specimen (Source)Anatomical Location / LateralityCollection Method / VolumeCollection TimeReceived Time06/12/2025 9:59 AM EDT06/12/2025 10:00 AM EDT Narrative Authorizing ProviderResult TypeResult StatusJanel Dorsey CEMENT RUBBER-CURNOELLE ORDERABLESFinal ResultPerforming OrganizationAddressCity/State/ZIP CodePhone Number [facility] [address] [place] [place] [address], [facility] [phone] [employer] [address] [place] [address], [facility] [phone] * Creatinine, Random Urine (06/12/2025 9:59 AM EDT)ComponentValueRef RangeTest MethodAnalysis TimePerformed AtPathologist SignatureCreatinine, Ur52.428.0 - 217.0 mg/dL06/12/2025 9:59 AM EDTMERCY LABORATORIESComment:Reference range defined for 1st morning urineSpecimen (Source)Anatomical Location / Laterality Collection Method / VolumeCollection TimeReceived Time06/12/2025 9:59 AM EDT 06/12/2025 10:00 AM EDT Narrative Authorizing ProviderResult TypeResult StatusJanel Dorsey CEMENT RUBBER-CURINE ORDERABLESFinal ResultPerforming OrganizationAddressCity/State/ZIP CodePhone Number [facility] [address] [place] [address], [facility] [phone] [place] [address], [facility] [phone] * (ABNORMAL) Vitamin D 25 Hydroxy (06/12/2025 9:59 AM EDT)ComponentValueRef RangeTest MethodAnalysis TimePerformed AtPathologist SignatureVit D, 25-Lzkxytq89.2(L)30.0 - 100.0 ng/mL06/12/2025 9:59 AM EDTMERCY LABORATORIES Comment: Reference Range: Vitamin D status ? Range Deficiency <20 ng/mL Mild Deficiency ? 20-30 ng/mL Sufficiency ?30-100 ng/mL Toxicity >100 ng/mL Specimen (Source)Anatomical Location / LateralityCollection Method / Volume Collection TimeReceived Time06/12/2025 9:59 AM EDT06/12/2025 10:00 AM EDT Narrative Authorizing ProviderResult TypeResult StatusJanel Flintstone CEMENT RUBBER-CCHEMISTRY ORDERABLESFinal ResultPerforming OrganizationAddMeadows Psychiatric Centerty/State/ZIP CodePhone Number [facility] [address] [place] [address], [facility] [phone] [phone] * PTH, Intact (06/12/2025 9:59 AM EDT)ComponentValueRef RangeTest MethodAnalysis TimePerformed AtPathologist SignaturePth Gcoewn44.017.9 - 58.6 pg/mL06/12/2025 9:59 AM EDGarmor LABORATORIESSpecimen (Source)Anatomical Location / Laterality Collection Method / VolumeCollection TimeReceived Time06/12/2025 9:59 AM EDT 06/12/2025 10:00 AM EDT Narrative Authorizing ProviderResult TypeResult StatusJanel Dorsey CEMENT RUBBER-CCHEMISTRY ORDERABLESFinal ResultPerforming OrganizationAddressty/State/ZIP CodePhone Number [facility] [address] [place] [id number], [facility] [phone] [employer] [address] [place] [address] * (ABNORMAL) Renal Function Panel (06/12/2025 9:59 AM EDT)ComponentValueRef RangeTest MethodAnalysis TimePerformed AtPathologist ZgxxbrjarAoulciy787(H)70 - 99 mg/dL06/12/2025 9:59 AM EDCuil [facility] VSUUPT90(H)6 - 20 mg/dL 06/12/2025 9:59 AM [facility] LABCreatinine1.3(H)0.5 - 0.9 mg/dL 06/12/2025 9:59 AM [employer] [facility] LABEst Glodieudonne Filt Rate51(L)>60 mL/min/1.21r47606/12/2025 9:59 AM [employer] [facility] LABComment: ? These results are not [...] following therapy that affects renal tubular secretion. Calcium9.28.6 - 10.4 mg/dL06/12/2025 9:59 AM [employer] [facility] LABAlbumin 4.23.5 - 5.2 g/dL06/12/2025 9:59 AM [facility] LABPhosphorus3.92.6 - 4.5 mg/dL06/12/2025 9:59 AM [facility] OUAGnnood431519 - 144 mmol/L06/12/2025 9:59 AM [facility] LABPotassium4.53.7 - 5.3 mmol/L 06/12/2025 9:59 AM [facility] NKNTugpuihh7560 - 107 mmol/L 06/12/2025 9:59 AM [facility] WJCAK54860 - 31 mmol/L06/12/2025 9:59 AM [facility] LABAnion Jue518 - 17 mmol/L06/12/2025 9:59 AM EDT [employer] [facility] LABSpecimen (Source)Anatomical Location / Laterality Collection Method / VolumeCollection TimeReceived Time06/12/2025 9:59 AM EDT 06/12/2025 10:00 AM EDT Narrative Authorizing ProviderResult TypeResult StatusJacqueline Willian CEMENT RUBBER-CCHEMISTRY ORDERABLESFinal ResultPerforming OrganizationAddressCity/State/ZIP CodePhone Number [facility] [address] [place], [place] [address] [phone] * MORPHOLOGY CHECK (05/15/2025 12:11 PM EDT)ComponentValueRef RangeTest Method Analysis TimePerformed AtPathologist SignatureMorphologyMODERATE ANISOCYTOSIS 05/15/2025 12:11 PM EDADAMS [facility]ENTERY [facility] LABSpecimen (Source)Anatomical Location / LateralityCollection Method / VolumeCollection TimeReceived Time 05/15/2025 12:11 PM EDT05/15/2025 12:12 PM EDT Narrative Authorizing ProviderResult TypeResult StatusPeter D [facility] DPMCHEMISTRY ORDERABLESFinal ResultPerforming OrganizationAddressCity/State/ZIP CodePhone Number [facility] [address] [address], [facility] [phone] * Hemoglobin A1C (04/14/2025 9:54 AM EDT)ComponentValueRef RangeTest Method Analysis TimePerformed AtPathologist SignatureHemoglobin A1C5.94.0 - 6.0 % 04/14/2025 9:54 AM EDTMERCY LABORATORIESEstimated Avg Ybcgrih584og/dL 04/14/2025 9:54 AM EDTMERCY LABORATORIESComment: The ADA and AACC recommend providing the estimated average glucose result to permit better patient understanding of their HBA1c result. Specimen (Source)Anatomical Location / LateralityCollection Method / Volume Collection TimeReceived TimeBloodBLOOD SPECIMEN / Jehsvbl3904/14/2025 9:54 AM EDT 04/14/2025 9:55 AM EDT Narrative Authorizing ProviderResult TypeResult StatusBilly Back MDCHEMISTRY ORDERABLES Final ResultPerforming OrganizationAddressty/State/ZIP CodePhone Number [facility] [address] [address], [facility] [phone] [place] [id number], [facility] [phone] * (ABNORMAL) Lipid Panel (04/14/2025 9:54 AM EDT)ComponentValueRef RangeTest MethodAnalysis TimePerformed AtPathologist SignatureCholesterol, Overj4275 - 199 mg/dL04/14/2025 9:54 AM EDTMERCY LABORATORIESComment: Cholesterol Guidelines: <200 Desirable 200-240 ??Borderline >240 Undesirable HDL31(L)>40 mg/dL04/14/2025 9:54 AM EDTMERCY LABORATORIESComment: HDL Guidelines: <40 Undesirable 40-59 ?Borderline >59 Desirable LDL Fqhkdqxxosv912 - 100 mg/dL04/14/2025 9:54 AM EDTMERCY LABORATORIESComment: LDL Guidelines: <100 Desirable 100-129 ?? Near to/above Desirable 130-159 ?? Borderline >159 Undesirable Direct (measured) LDL and calculated LDL are not interchangeable tests. Chol/HDL Ratio5.1(H)<5.007 9:54 AM EDTMERCY CZCASAJWTEZLAsxuunqsiaycx319 (H)<150 mg/dL04/14/2025 9:54 AM EDTMERCY LABORATORIESComment: Triglyceride Guidelines: <150 Desirable 150-199 ??Borderline 200-499 ??High >499 Very high Based on AHA Guidelines for fasting triglyceride, July 2012. VLDL68(H)1 - 30 mg/dL04/14/2025 9:54 AM EDTMERCY LABORATORIESSpecimen (Source) Anatomical Location / LateralityCollection Method / VolumeCollection Time Received TimeBloodBLOOD SPECIMEN / Hfrnawl4704/14/2025 9:54 AM EDT04/14/2025 9:55 AM EDT Narrative Authorizing ProviderResult TypeResult StatusBilly Back MDCHEMISTRY ORDERABLES Final ResultPerforming OrganizationAddressCity/State/ZIP CodePhone Number [facility] [address] [place] [address], [facility] [phone] [place] [address], [facility] [phone] * [facility] BRIAN DIGITAL SCREEN BILATERAL (02/15/2025 11:51 AM EDT)Anatomical Region LateralityModalityBreastBilateralMammographySpecimen (Source)Anatomical Location / LateralityCollection Method / VolumeCollection TimeReceived Time 02/15/2025 11:51 AM EDT Impressions 02/28/2025 12:55 PM EDT OVERALL ASSESSMENT: BIRADS: 1 Negative, no evidence of malignancy. A letter of notification will be mailed to the patient. Performing Facility: [facility] [address] [place] [id number] Narrative 02/28/2025 12:55 PM EDT HISTORY: Screening. [...] skin lesions and linear markers represent scars.) Authorizing ProviderResult TypeResult StatusBilly Back MDIMG MAMMOGRAPHY ORDERABLESFinal Result * HIV Screen (04/12/2022 2:09 PM EDT)ComponentValueRef RangeTest MethodAnalysis TimePerformed AtPathologist SignatureHIV Ag/FiWRLRCRNTSNCYFDAOGGGRWI19/09/2022 2:09 PM EDTMERCY LABORATORIESComment: No laboratory evidence of HIV infection. ??If acute HIV infection is suspected, consider testing for HIV-1 RNA. Specimen (Source)Anatomical Location / LateralityCollection Method / Volume Collection TimeReceived TimeBLOOD SPECIMEN / Idptsda3104/12/2022 2:09 PM EDT 04/12/2022 2:11 PM EDT Narrative Authorizing ProviderResult TypeResult StatusBilly Back MDIMMUNOLOGY ORDERABLES Final ResultPerforming OrganizationAddressCity/State/ZIP CodePhone Number [facility] [address] [place] [address], [facility] [phone] [facility] [employer] [address] [place] [id number] [phone] * [facility] PAP SMEAR (09/24/2021) Narrative Authorizing ProviderResult TypeResult StatusHistorical Provider MDHEALTH MAINTENANCEFinal Result * HM COLONOSCOPY (12/09/2017) Narrative Authorizing ProviderResult TypeResult StatusHistorical Provider MDHEALTH MAINTENANCEFinal Result * Hepatitis C Antibody (06/13/2014 8:54 AM EDT)ComponentValueRef RangeTest MethodAnalysis TimePerformed AtPathologist SignatureHepatitis C AbNONREACTIVE NR06/13/2014 9:44 PM EDTMHPN LABComment: ? The hepatitis C procedure used in our laboratory is a Chemiluminescent test specific for three recombinant HCV antigens. ??A negative anti-HCV result indicates that the antibodies to hepatitis C virus are not present at this time. Individuals with reactive anti-HCV should be considered infected and infectious until proven otherwise. ??Confirmation of all equivocal or reactive results is recommended by ordering HCV RNA by PCR. Performed at [address] [address] ([phone] Specimen (Source)Anatomical Location / LateralityCollection Method / Volume Collection TimeReceived Time06/13/2014 8:54 AM EDT06/13/2014 8:55 AM EDT Narrative Authorizing ProviderResult TypeResult StatusSuresh Jamila Klein MDIMMUNOLOGY ORDERABLESFinal ResultPerforming OrganizationAddressCity/State/ZIP CodePhone Number [facility] [address] [facility] [place] [address], [facility] [phone] [facility] from Last 3 Months or Most Recently Relevant to Health Maintenance Additional Health Concerns InfectionOnset DateLast IndicatedMRSA Comment:Blood and spine 08/2018/MDRO (multi-drug resistant organism) Comment:E. Coli urine 05/02/2022 Insurance * Guarantor: Celina Gaspar TypeRelation to PatientDate of BirthPhone Billing AddressPersonal/IkzmwjIplm55/ [address] [place] [address] Advance Directives * Full Code (Latest Code Status on File) Date ActivatedDate IivtlphmbeoHmjpjmgm75/11/2018 4:17 PM08/25/2018 8:55 PM * Full Code Date ActivatedDate InactivatedComments03/19/2017 1:37 PM03/19/2017 4:32 PM * Full Code Date ActivatedDate InactivatedComments03/19/2017 10:57 AM03/19/2017 1:37 PM * Full Code Date ActivatedDate InactivatedComments03/05/2017 12:56 PM03/05/2017 3:55 PM * Full Code Date ActivatedDate InactivatedComments03/05/2017 10:05 AM03/05/2017 12:56 PM Care Teams Team MemberRelationshipSpecialtyStart DateEnd Date Felipe Adam MD [address] [place] [address] PCP - GeneralInternal Medicine11/14/11
--- OUTSIDE RECORDS SUMMARY | 2025-07-25 16:05 | XMS_ITS ---
Continuity of Care Document (CCD) Created on: July 25, 2025 Julisa Celina Sales External Reference #: [id number] : [id number] Sex: Female Author Organization [facility] Address [address] [place] [phone] Phone [phone] Care Team Providers Care Long Filler [employer]ig[employer] Rol[employer] Machine Name Role Phone Back, Alcides MELENDREZ Care Team Information Housekeeper Caregiver + [phone] Problems Active Problems Provider Date Chronic kidney [...] Range N ote .Urine Protein/Creat. Random 06/12/2025 [place], [place] [phone].Urine Protein Random<4.Urine Creatinine Mkmgng84.4.V Ipth-Vitamin D006/12/2025[place], [place] [phone].Ipth40.0.Vitamin D, 25 Inrlpfb64.2.Renal Panel06/12/2025[place], [place] [phone].Albumin4.2.Calcium9.2.Carbon Ldqzgal29.Jojxvqfo25.Phosphorus3.9 .Potassium4.5.Bvqdpr973.BUN23.GFR Kuvzgudyv82Gdbs31.Creatinine-LC1.3.Urine Protein/Creat. Viendn3305/10/2024[place], [place] [phone] Protein Random9.Urine Creatinine Jhqovs605.0.Urine Prot/Creat Ratio0.07.Loeeyjwog44/06/2024[place] [phone].Magnesium2.2.Urinalysis-Vhlmvzg3805/10/2024[place] [phone] Specific Gravity1.020Ua PH Test Strip5.0Ua ColoryellowUa AppearanceclearUa ProteintraceUa GlucosenegativeUa KetonesnegativeUa Bilirubin negativeUa UrobilinogennormalUa NitritenegativeUa Occult Bloodnegative.Renal Panel05/10/2024[place] [phone].Albumin4.2.Calcium9.2.Carbon Ykdqchz13.Buuzfwjr103.Phosphorus3.8 .Potassium4.0.Bezhcf133.BUN19.GFR Wqpawfakb58Tgus70.Creatinine-LC1.3.Renal Panel 05/17/2023[place] [phone].Calcium9.5.Carbon Hixfkpj79.Gvjnkpmu345.Phosphorus3.0 .Potassium4.3.Rlbefv067.BUN17.GFR >52Kgbi18.Creatinine-LC1.1.Urine Protein/Creat. Hpjqfr5805/17/2023[place] [phone].Urine Protein Ciivwd69.Urine Creatinine Cebhlw207.1.Urine Prot/Creat Ratio0.07.Ipth05/17/2023[place] [phone].Ipth47.1.Vitamin D, 25 Vhpxkvd6805/17/2023[place] [phone].Vitamin D, 25 Lvlospj47.1.Urine Protein/Creat. Cfvhci3705/20/2022 [place] [phone].Urine Protein Random7.Urine Creatinine Alwdty77.1.Urine Prot/Creat Ratio0.07.Tibc-LC05/20/2022[place] [phone].Tibc-LC263.Moyrgrio74/16/2022[place] [phone].Qycxqljv952.Iron05/20/2022[place] [phone].Iron48.Transferrin-LC05/20/2022[place] [phone].Transferrin-LC280.T-Sat-LC05/20/2022[place] [phone].T-Sat-LC0.18.V Ipth-Vitamin D005/20/2022[place] [phone].Ipth39.91.Vitamin D, 25 Mzxfdde47.3.Xfzampzhe96/16/2022[place] [phone].Magnesium2.1.Hemoglobin And Naktfdwtcx16/16/2022[place] [phone].Hemoglobin Blood11.1.Iguhabddua21.3.Renal Panel05/20/2022[place] [phone].Albumin4.4.Cgbiiie16.0.Carbon Mosbreg35.Ikxkezax800.Phosphorus3.8 .Potassium4.3.Rjxenw531.BUN18.EQF05Klfc17.GFR Ccydcllgr13Ijaa26.Creatinine-LC 1.13.Renal Panel (Other Labs)05/21/2021[place] [phone].Albumin4.2.Calcium9.2.Carbon Loohaln98.Gikjglot973.Creatinine-LC 1.18.Phosphorus3.7.Iswtwv651.BUN19.UXD60Kucu95.Potassium4.2.Urine Protein/Creat. Ddufyy7705/21/2021[place] [phone].Urine Protein Random7.Urine Creatinine Xpitur509.7.Magnesium 05/21/2021[place] [phone].Magnesium2.2.Urinalysis-Iknzvrt5205/21/2021[place] [phone] Specific Gravity1.020Ua PH Test Strip5.0Ua ColorYELLOWUa AppearanceCLEARUa ProteinTRACEUa GlucoseNEGATIVEUa KetonesNEGATIVEUa UrobilinogenNORMALUa Occult BloodNEGATIVE.Ua05/25/2020[place] [phone] AppearanceclearUa Bilirubin-Ua Blood-Ua ColoryellowUa Glucose 100mg/dlUa Leuko-Ua Nitrite-Ua PH Test Strip6.0Ua Protein-Ua Specific Logan 1.020Ua Urobilinogen-.Urine Protein/Creat. Azdcrw4505/25/2020[place] [phone].Urine Protein Random8.Urine Creatinine Tyrrqh116.2.Urine Prot/Creat Ratio0.08.Renal Panel05/25/2020[place] [phone].Albumin4.4.Mmijpnk50.1.Carbon Wnbkyso92.Pgykxusg489.Creatinine-LC 1.37.Tdbbwbacgs94.Djxgqw696.BUN24.GFR-SJ25Esxw29.Potassium4.6.Renal Panel 06/17/2019[place] [phone].Albumin4.3.Wwlgrof96.4.Carbon Idgcckj63.Julvxmxy171.Creatinine-LC 1.27.Phosphorus3.0.Tavzth979.BUN18.GFR-OU12Fgfe04.Potassium3.8.Ua06/17/2019[place] [phone] AppearanceHAZYUa Bacteria1+Ua BilirubinNEGUa BloodNEGUa Color YELLOWUa Epithelial Cells QL2-5Ua GlucoseNEGUa KetonesNEGUa LeukoNEGUa Nitrite NEGUa PH Test Strip6.0Ua ProteinTRACEUa Specific Gravity1.025Ua Urobilinogen NORMALUa WBC0-2.Urine Protein/Creat. Lnoaoj6006/17/2019[place] [phone].Urine Protein Qlvzux18.Urine Creatinine Tyaynk692.2.Urine Prot/Creat Ratio0.08.Fzasviasm14/13/2019[place] [phone].Magnesium2.3.Hemoglobin And Dtjerlapmz40/13/2019[place] [phone].Hemoglobin Blood12.1.Ffibfbifjg14.4.Renal Panel -LC04/14/2018 [place] [phone].Albumin3.7.Calcium8.9.Carbon Cbwsbsi31.Rohojegx457.Creatinine-LC 1.28.Phosphorus3.6.Lledvo660.BUN19.GFR-UZ92Pepr32.Potassium4.1.Urine Protein/Creat. Ttyyhc8304/14/2018[place] [phone].Urine Protein Random7.Urine Creatinine Qxgdce479.7.Urine Prot/Creat Ratio0.07.CBC W/Jbayceqoeanf42/11/2018[place] [phone].White Blood Count8.6.Red Blood Count4.40.Hemoglobin Blood13.3 .Qpgsbycjru24.4MCH (Corpuscular Hemoglobin)30.2MCHC (Corpuscular Hemog Conc)33.7 RDW15.6.Platelet Count Sjzkt924Lddycqvpymb27Knswt Stxbeuvxwbz38Czbmxxomo3Pyaep Body Bsmmhxyaple4Qbteyyked %1Absolute Basophils0.10Absolute Eosinophils0.20 Absolute Lymphocytes2.70Absolute Monocytes0.50.Ipth04/14/2018[place] [phone].Ipth63.44Uvzp9611/18/2017[facility], Abdomen, W/ ContrastSEE ULUCCCYwzt12/14/2018[facility], Abdomen, W/ ContrastCORTICAL CYST L KIDY.Urinalysis-Zanysvx4911/17/2017 [facility] [phone] UrineNO SIGNIFICANT H.Urinalysis-Awjzkte8911/17/2017[facility] [phone] Specific Gravity1.014Ua PH Test Strip6.0Ua ColorYELLOWUa AppearanceHAZYUa WBC6Ua ProteinNEGUa GlucoseNEGUa KetonesNEGUa BilirubinNEGUa Urobilinogen<2.0Ua NitriteNEGUa Occult BloodMOD.CMP11/17/2017[facility] [phone].Albumin3.1.Alt18.Calcium8.6.Carbon Tawckxw20.Oufrotst899 .Creatinine-LC1.13.Glucose Chjqe231.Alkaline Phos78.Potassium3.7.Protein-Total 6.8.Kajvmv250.Ast7.BUN17.GFR Zbitnwdjn74Wiwa31.Urine Prot/Creat Ratio02/17/2017 [place] [phone] Prot/Creat Ratio0.07Miscellaneous Other02/17/2017[place] [phone] Test - Put Test In Ordercompleted.Renal Panel -LC02/17/2017 [place] [phone].Albumin4.1.Calcium9.4.Carbon Aikrnsq12.Mzlpqnuz272.Creatinine-LC 1.31.Phosphorus3.4.Nvukzt876.BUN21.GFR-TQ67Vkvs91.Potassium4.1.BMP W/Egfr-LC 08/07/2016[facility] [phone].Rohzbg675.Potassium4.3.Zvjhasye080.Carbon Dsfoxsw88.Calcium9.5 .Glucose Rnfwh525.GFR-JK30Ympv32.Creatinine-LC1.17.BUN16.Hemoglobin A1c-LC 08/07/2016[facility] [phone].Hemoglobin I3t-TA2.1.Lipid Panel08/07/2016[facility] [phone].Dfpwcechwkn181.Cholester/HDL Ratio6.2High Density Jcirqeevuws81 .LDL/HDL Ratio79.LDL Ddjvisirngr014.Kfuyugmfzosif558.CBC W/O Differential 08/07/2016[facility] [phone].Dpahwoeioq28.1.Hemoglobin Blood12.6.Platelet Count Cstfh956.Red Blood Count4.67WDY83.2.White Blood Count7.6MCH (Corpuscular Hemoglobin)29.8MCHC (Corpuscular Hemog Conc)34.1Urine Xapqhwl0406/08/2015[place] [phone] Urine Routinesee report.Urinalysis-Fymqiud0206/08/2015[place] [phone] Specific Gravity1.020Ua PH Test Strip5.0Ua ColoryellowUa AppearanceclearUa ProteinnegativeUa GlucosenegativeUa BilirubinnegativeUa UrobilinogennormalUa Nitritenegative.Urine Protein/Creat. Jxdnaz6506/08/2015[place] [phone].Urine Protein Blvmoj35.Urine Creatinine Sfyizr034.4.Urine Prot/Creat Ratio0.05.Renal Panel06/08/2015[place] [phone].Albumin4.0.Calcium8.9.Carbon Kvhubqu88.Ziootzhr200.Creatinine-LC 1.29.Phosphorus3.0.Potassium3.6.Qayxve696.BUN14.GFR-MQ74Fgal46.Hemoglobin And Zbzzmlijau88/04/2015[place] [phone].Hemoglobin Blood12.8.Xmrhvbzjco82.2.Ua12/29/2014[place] [phone] AppearanceclearUa BilirubinnegativeUa BloodtraceUa Coloryellow Ua Epithelial Cells QL2 to 5Ua GlucosenegativeUa LeukonegativeUa Nitritenegative Ua PH Test Strip5.0Ua ProteinnegativeUa RBC0 to 2Ua Specific Gravity1.020Ua Urobilinogennormal.Renal Panel12/29/2014[place] [phone].Albumin4.1.Calcium9.7.Carbon Fbtizla52.Fydglomq787.Creatinine-LC 1.50.Phosphorus4.2.Potassium4.1.Ddkpib624.BUN18.GFR-IF86Otdl49.Urine Protein/Creat. Gntukn3112/29/2014[place] [phone].Urine Protein Random6.Urine Creatinine Nigamb747.0.Urine Prot/Creat Ratio0.05.Renal Panel12/06/2014[place] [phone].Albumin4.0.Calcium9.2.Carbon Nufwfen45.Wpvlotxt581.Creatinine-LC 1.32.Phosphorus3.0.Potassium4.3.Gjqqhd297.BUN17.GFR-BU83Zrvw77.Urine Protein/Creat. Tmzqrj3012/06/2014[place] [phone].Urine Protein Random7.Urine Creatinine Firegz844.8.Urine Prot/Creat Ratio0.04.Ua12/06/2014[place] [phone] AppearanceclearUa Bacteria1+Ua BilirubinnegativeUa BloodtraceUa ColoryellowUa Epithelial Cells QL2 to 5Ua GlucosenegativeUa LeukonegativeUa NitritenegativeUa PH Test Strip6.0Ua ProteinnegativeUa RBC2 to 5Ua Specific Gravity1.020Ua Urobilinogennormal.Complement C306/13/2014[place] [phone].Complement C3140.Iajkqtnpe69/09/2014[place] [phone].Magnesium2.3.Dqvoygd7906/13/2014[place] [phone].Calcium9.1.Gmwavelfct47/09/2014[place] [phone].Phosphorus3.8.Urine Protein 24HR06/13/2014[place] [phone].Urine Protein Total 24H63.Urinalysis-Podudyk7706/13/2014[place] [phone] Specific Gravity1.015Ua PH Test Strip6.0Ua ColorYELLOWUa AppearanceCLEARUa ProteinNEGATIVEUa GlucoseNEGATIVEUa BilirubinNEGATIIVEUa UrobilinogenNORMALUa NitriteNEGATIVE.V Ipth-Vitamin D006/13/2014[place] [phone].Ipth49.31.Vitamin D, 25 Cdkfnpi32.9.Anca Panel-LC06/13/2014[place] [phone].Anca-C30.Anca-P7.Urine Protein Elect Ran06/13/2014[place] [phone] InterpretationNORMAL.GBM Antibody-LC06/13/2014[place] [phone].Bhon-IOM-YY6.Complement Total (CH50)06/13/2014[place] [phone].Complement Total (CH50)115.Complement C406/13/2014[place] [phone].Complement C429.Ipth06/13/2014[place] [phone].Ipth49.31.Lipid Panel06/13/2014[place] [phone].Tjbeznnhdpl91.Cholester/HDL Ratio5.6High Density Cbknrjqrzsr47 .LDL/HDL Ratio58.LDL Csxvhsdndbn741.Acqdpxkhkbflc464.Immunofixation-Urine 06/13/2014[place] [phone].Immunofixation-UrineNEGATIVE.Vitamin D, 25 Gaqsgwy2406/13/2014[place] [phone].Vitamin D, 25 Jizzcji99.9.Bseqhufrkbqp24/09/2014[place] [phone].Cryoglobulin0.Hepatitis B-Surface Drnjobp0806/13/2014[place] [phone].Hepatitis B-Surface AntigenNON REACTIVE.Hepatitis C006/13/2014 [place] [phone].Hepatitis CNON REACTIVE.Immunofixation-Serum06/13/2014[place] [phone].Immunofixation-SerumNEGATIVE.Hemoglobin And Turgknmibt66/09/2014 [place] [phone].Hemoglobin Blood13.0.Rqtoeyywwy85.9.Urine Eosinophils Random 06/13/2014[place] [phone].Urine Eosinophils RandomNONE SEEN.BUN06/13/2014[place] [phone].BUN18.Creatinine-LC06/13/2014[place] [phone].Creatinine-LC1.27.GFR-LC06/13/2014[place] [phone].GFR-HD59Knzd05.Fldcfd0706/13/2014[place] [phone].Uxwbdg724.Idyhfnmzn55/09/2014[place] [phone].Potassium4.4.Amtaztpa73/09/2014[place] [phone].Urhqgpci018.Carbon Yzwsejg8506/13/2014[place] [phone].Carbon Hggbgor87.Renal Panel05/30/2014[facility] [phone].Albumin3.9.Calcium9.3.Carbon Fnuehfr31.Xoznvshd008.Creatinine-LC 1.41.Potassium3.6.Gmzrbr956.BUN16.GFR-PU31Revr98.GFR Akmsvxhk30Zfxo15 .GFR Piguzpblx46Nhhj75.Urinalysis-Utnewiy8805/30/2014[facility] [phone] Specific Gravity1.030Ua PH Test Strip5.0Ua ColoryellowUa AppearancehazyUa ProteinnegativeUa GlucosenegativeUa KetonesnegativeUa Bilirubin negativeUa UrobilinogennormalUa Nitritenegative.Renal Panel05/22/2014[facility] [phone].Albumin4.1.Calcium9.1.Carbon Hzdfles61.Pcpzjgum551.Creatinine-LC 1.45.Potassium3.8.Nonmxp097.BUN19.GFR-HT14Ofwb37.GFR Kzyfubhp04Irfj79 .GFR Wusnkqehx18Lpjy00.Renal Panel01/13/2014[facility] [phone].Albumin4.1.Calcium9.3.Carbon Yzbvmzz19.Ydrolipc189.Creatinine-LC 1.26.Potassium4.1.Doacwq187.BUN19.GFR-CA07Sgcs66.GFR Ixbwihxt66Wkxl34 .GFR Rtnefrvmn17Frzu08 Encounters Type Date Location Provider Dx Diagnosis Office Visit 06/14/2025 2:20p [facility] Heather Forbes M.D. N11.9 Chronic tubulo-interstitial nephritis, unspecified N18.31 Chronic kidney disea se, stage 3a Office Visit 05/13/2024 1:00p [facility] SHUKRI Sebastian N11.9 Chronic tubulo-interstitial nephritis, unspecified N18.31 Chronic kidney disea se, stage 3a Office Visit 05/18/2023 11:00a [facility] Jerica Stokes N11.9 Chronic tubulo-interstitial nephritis, unspecified N18.31 Chronic kidney disea se, stage 3a D50.9 Iron deficiency anem ia, unspecified E55.9 Vitamin D deficiency , unspecified Office Visit 05/23/2022 11:00a [facility] Jerica Stokes N11.9 Chronic tubulo-interstitial nephritis, unspecified N18.31 Chronic kidney disea se, stage 3a D50.9 Iron deficiency anem ia, unspecified E55.9 Vitamin D deficiency , unspecified Office Visit 05/22/2021 1:30p [facility] Tequila Giles NP N11.9 Chronic tubulo-interstitial [...] stage 3 (moderate) Office Visit 05/04/2018 10:20a [facility] Heather Forbes M.D. N11.9 Chronic tubulo-interstitial nephritis, unspecified N18.3 Chronic kidney disea se, stage 3 (moderate) Office Visit 03/13/2017 2:00p [facility] Heather Forbes M.D. N11.9 Chronic tubulo-interstitial nephritis, unspecified N18.3 Chronic kidney disea se, stage 3 (moderate) E78.1 Pure hyperglyceridem ia Office Visit 06/15/2015 1:00p [facility] Heather king M.D. 585.3 Chronic Kidney Disease Stage 3 582.89 Interstitial Nephrit is 530.81 Esophageal Reflux Office Visit 12/15/2014 1:00p [facility] BRENDEN Boyer P 585.3 Chronic Kidney Disease Stage 3 582.89 Interstitial Nephrit is V58.64 [facility] (Current)Us e Of Non-Steroid Antiinflammatories 530.81 Esophageal Reflux Office Visit 07/07/2014 11:40a [facility] Heather high M.D. 585.3 Chronic Kidney Disease Stage 3 582.89 Interstitial Nephrit is V58.64 [facility] (Current)Us e Of Non-Steroid Antiinflammatories 530.81 Esophageal Reflux Office Visit 06/09/2014 1:00p [facility] Matheus ngo 585.3 Chronic Kidney Disease Stage 3 582.89 Interstitial Nephrit is V58.64 [facility] (Current)Us e Of Non-Steroid Antiinflammatories 789.00 Pain Abdominal Unspe c Site Assessments Date Code Description Provider 06/14/2025 N11.9 Chronic tubulo-i nterstitial nephritis, unspecified Heather Heidyna M.D. 06/14/2025 N18.31 Chronic kidney disease, stag e 3a Heatherwoody Forbes M.DLori 05/13/2024 N11.9 Chronic tubulo-i nterstitial nephritis, unspecified RYAN SebastianC 05/13/2024 N18.31 Chronic kidney disease, stag e 3a RYAN SebastianC 05/18/2023 N11.9 Chronic tubulo-i nterstitial nephritis, unspecified Rulo, Jerica 05/18/2023 N18.31 Chronic kidney disease, stag e 3a Rulo, Jerica 05/18/2023 D50.9 Iron deficiency anemia, unsp ecified Kike, Jerica 05/18/2023 E55.9 Vitamin D deficiency, unspec ified Rulo, Jerica 05/23/2022 N11.9 Chronic tubulo-i nterstitial nephritis, unspecified Kike, Jerica 05/23/2022 N18.31 Chronic kidney disease, stag e 3a Kike, Jerica 05/23/2022 D50.9 Iron deficiency anemia, unsp ecified Rulo, Jerica 05/23/2022 E55.9 Vitamin D deficiency, unspec ified Rulo, Jerica 05/22/2021 N11.9 Chronic tubulo-i nterstitial nephritis, unspecified Heather Heidyna M.D. 05/22/2021 N11.9 Chronic tubulo-i nterstitial nephritis, unspecified Tequila Giles NP 05/22/2021 N18.30 Chronic kidney disease, stag e 3 unspecified Heather Benjaminadana M.D. 05/22/2021 N18.30 Chronic kidney disease, stag e 3 unspecified Tequila Giles, TRANSFORMATION CONSULTANT 06/08/2020 N11.9 Chronic tubulo-i nterstitial nephritis, unspecified [...] Chronic Kidney Disease Stage 3 Cheryl Palomo, BUILDING MAINTENANCE MECHANIC 12/15/2014 582.89 Interstitial Nephritis Cheryl Palomo, BUILDING MAINTENANCE MECHANIC 12/15/2014 V58.64 Penitentiary (Curren t)Use Of Non-Steroid Antiinflammatories Cheryl Palomo, BUILDING MAINTENANCE MECHANIC 12/15/2014 530.81 Esophageal Reflux Cheryl liang, BUILDING MAINTENANCE MECHANIC 07/07/2014 585.3 Chronic Kidney Disease Stage 3 Heather Kamadana M.D. 07/07/2014 582.89 Interstitial Nephritis Swapn a Kamadana M.D. 07/07/2014 V58.64 Penitentiary (Curren t)Use Of Non-Steroid Antiinflammatories Heather Kamadana M.D. 07/07/2014 530.81 Esophageal Reflux Heather stevens M.D. 06/09/2014 585.3 Chronic Kidney Disease Stage 3 Doug Klein M.D. 06/09/2014 582.89 Interstitial Nephritis Kenroy Klein M.D. 06/09/2014 V58.64 Penitentiary (Curren t)Use Of Non-Steroid Antiinflammatories Doug Klein M.D. 06/09/2014 789.00 Pain Abdominal Unspec Site S yasmin Klein M.D.
--- OUTSIDE RECORDS SUMMARY | 2025-07-25 16:06 | XMS_ITS | Patient Health Record ---
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 Name Role Phone None, Unknown or Primary Care Provider Unavailab Frances Plascencia [phone] Allergies Allergen (clinical drug ingredient) Drug/Non Drug Allergy documented on EMR Reaction Allergy Type Onset Date Status ChloraPrep One StepUnknownDrug AllergyActive Results Component Value Reference Range Notes XR foot LT min 3V (Not yet r eviewed by provider) Interpretation: Performing Lab: Notes/Report: Source Facility: [place] [address] XRay Report Signed Patient: CELINA GASPAR MR#: [id number] : 1980 Acct:[id number] Age/Sex: 44 / F ADM Date: 07/27/24 Loc: RAD Attending Dr: Frances Chase D.P.M. Ordering Physician: Frances Chase D.P.M. Date of Service: 07/27/24 Procedure(s): XR foot LT min 3V Accession Number(s): [id number] cc: Frances Chase D.P.M.; Physician,Non-Staff [place] [address] Patient Name: CELINA GASPAR MRN: [id number] date: 1980 Sex: F Assigned Patient Location: RAD Current Patient Location: Accession/Order Number: [id number] Exam Date: 07/27/2024 10:48 Report Date: 07/31/2024 [...] M.D. Signed By: 07/31/24721 DD/ 8 TD/TT: Leadership Development Instructor: XR foot LT min 3V (Not yet r eviewed by provider) Interpretation: Performing Lab: Notes/Report: Source Facility: [place] [address] XRay Report Signed Patient: CELINA GASPAR MR#: [id number] : 1980 Acct:[id number] Age/Sex: 44 / F ADM Date: 08/23/24 Loc: RAD Attending Dr: Frances Chase D.P.M. Ordering Physician: Frances Chase D.P.M. Date of Service: 08/23/24 Procedure(s): XR foot LT min 3V Accession Number(s): [id number] cc: Frances Chase D.P.M.; Physician,Non-Staff [place] [address] Patient Name: CELINA GASPAR MRN: [id number] date: 1980 Sex: F Assigned Patient Location: RAD Current Patient Location: Accession/Order Number: [id number] Exam Date: 08/23/2024 10:38 Report Date: 08/25/2024 [...] M.D. Signed By: 08/25/24616 DD/ 3 TD/TT: Leadership Development Instructor: XR foot LT min 3V (Not yet r eviewed by provider) Interpretation: Performing Lab: Notes/Report: Source Facility: [place] [address] XRay Report Signed Patient: CELINA GASPAR MR#: [id number] : 1980 Acct:[id number] Age/Sex: 44 / F ADM Date: 11/01/24 Loc: RAD Attending Dr: Frances Chase D.P.M. Ordering Physician: Frances Chase D.P.M. Date of Service: 11/01/24 Procedure(s): XR foot LT min 3V Accession Number(s): [id number] cc: Frances Chase D.P.M.; Physician,Non-Staff [place] [address] Patient Name: CELINA GASPAR MRN: [id number] date: 1980 Sex: F Assigned Patient Location: RAD Current Patient Location: Accession/Order Number: [id number] Exam Date: 11/01/2024 10:45 Report Date: 11/02/2024 [...] Signed By: 11/02/24 1312 DD/ 1309 TD/TT: Leadership Development Instructor: XR foot LT min 3V (Not yet r eviewed by provider) Interpretation: Performing Lab: Notes/Report: Source Facility: [place] [address] XRay Report Signed Patient: CELINA GASPAR MR#: [id number] : 1980 Acct:[id number] Age/Sex: 44 / F ADM Date: 11/18/24 Loc: EC Attending Dr: Frances Chase D.P.M. Ordering Physician: Frances Chase D.P.M. Date of Service: 11/18/24 Procedure(s): XR foot LT min 3V Accession Number(s): [id number] cc: Frances Chase D.P.M.; Physician,Non-Staff [place] [address] Patient Name: CELINA GASPAR MRN: [id number] date: 1980 Sex: F Assigned Patient Location: Current Patient Location: EC Accession/Order Number: [id number] Exam Date: 11/18/2024 10:55 Report Date: 11/18/2024 [...] Signed By: 11/18/24 1346 DD/ 1344 TD/TT: Leadership Development Instructor: JESSICA (Not yet reviewed by provider) Interpretation: Performing Lab:[facility], [address], [place] [address] PH:[phone] Notes/Report: Morphology MODERATE ANISOCYTOSIS CBC (COMPLETE BLOOD COUNT) * (Not yet reviewed by provider) Interpretation: Performing Lab:[facility], [address], [place] [address] PH:[phone] Notes/Report:WBC Count9.93.5-11.0 k/uLRBC Count3.904.00-5.20 m/hUIwknlurspm52.0 12.0-16.0 g/wVCiejkgltcb32.336.0-46.0 %MCV87.980.0-100.0 fLMCH28.226.0-34.0 pg MCHC32.131.0-37.0 g/dLRDW17.112.1-15.2 %Platelet Tloti535066-269 k/uLMPV11.46.0- 12.0 fLCRP (Not yet reviewed by provider) Interpretation: Performing Lab:[facility], [address] [place] [address] PH:[phone] Notes/Report:C-Reactive Nchwpgj95.10.0-5.0 mg/LESR (Not yet reviewed by provider) Interpretation: Performing Lab:[facility], [address] [place] [address] PH:[phone] Notes/Report:Sedimentation Ujaq493-85 mm/HrBASIC METABOLIC PANL (Not yet reviewed by provider) Interpretation: Performing Lab:[facility], [address] [place] [address] PH:[phone] Notes/Report:NA (Sodium)972128-505 mmol/LK (Potassium)4.43.7-5.3 mmol/LChloride 29518-832 mmol/ILK51369-18 mmol/LAnion Yeg51-08 mmol/RTdxewke4228-07 mg/dLBUN (Urea N)196-20 mg/dLCreatinine1.40.5-0.9 mg/mCxGQK85>60 mL/min/1.73m2 These results are not intended for [...] following therapy that affects renal tubular secretion. Tixmcpa76.18.6-10.4 mg/dLXR foot LT min 3V (Not yet reviewed by provider) Interpretation: Performing Lab: Notes/Report: Source Facility: [place] [address] [place] [address] XRay Report Signed Patient: CELINA GASPAR MR#: [id number] : 1980 Acct:[id number] Age/Sex: 44 / F ADM Date: 09/20/24 Loc: RAD Attending Dr: Frances Chase D.P.M. Ordering Physician: Frances Chase D.P.M. Date of Service: 09/20/24 Procedure(s): XR foot LT min 3V Accession Number(s): [id number] cc: Frances Chase D.P.M.; Physician,Non-Staff [facility] [place] [id number] Patient Name: CELINA GASPAR MRN: [id number] date: 1980 Sex: F Assigned Patient Location: [facility] Current Patient Location: Accession/Order Number: [id number] Exam Date: 09/20/2024 10:45 Report Date: 09/21/2024 [...] M.D. Signed By: 09/21/2459 DD/ 5 TD/TT: Leadership Development Instructor:BASIC METABOLIC PANL (Not yet reviewed by provider) Interpretation: Performing Lab:[facility], [address] [place] [address] PH:[phone] Notes/Report:NA (Sodium)654959-419 mmol/LK (Potassium)4.43.7-5.3 mmol/LChloride 01401-522 mmol/SJO73912-65 mmol/LAnion Lfu323-38 mmol/CPkqncai99779-80 mg/dLBUN (Urea N)176-20 mg/dLCreatinine1.30.5-0.9 mg/bOrAPU42>60 mL/min/1.73m2 These results are not intended for [...] following therapy that affects renal tubular secretion. Calcium9.38.6-10.4 mg/dLESR (Not yet reviewed by provider) Interpretation: Performing Lab:[facility], [address] [place] [address] PH:[phone] Notes/Report:Sedimentation Xssd019-64 mm/HrCRP (Not yet reviewed by provider) Interpretation: Performing Lab:[facility], [address] [place] [address] PH:[phone] Notes/Report:C-Reactive Protein6.20.0-5.0 mg/LCBC (COMPLETE BLOOD COUNT) * (Not yet reviewed by provider) Interpretation: Performing Lab:[facility], [address] [place] [address] PH:[phone] Notes/Report:WBC Count3.83.5-11.0 k/uLRBC Count3.544.00-5.20 m/uLHemoglobin9.9 12.0-16.0 g/tJEjfssdfxfe25.336.0-46.0 %MCV91.280.0-100.0 fLMCH28.026.0-34.0 pg MCHC30.731.0-37.0 g/dLRDW19.412.1-15.2 %Platelet Jtlbz101389-242 k/uLMPV11.76.0- 12.0 fL Reason For Referral Reason Referral to [facility] Diagnosis 1 Charcot's joint, lef t ankle and foot (M14.672) Referral Organization [facility] (PODIATRY) Referring Provider First Name Frances Referring Provider Last Name Rena Referring Provider Speciality Podiatry Referred Provider Specialty Podiatry Referral Priority Routine Medications Medication SIG (Take, Route, Frequency, Duration) Notes Start Date End Date Status rOPINIRole HCl ActiveAlendronate Sodium 70 MG1 tablet 30 minutes before the first food, beverage or medicine of the day with plain water Orally weekly; Duration: 94 days4ActiveNaltrexoneActiveNurtecActiveLisdexamfetamine Dimesylate 50 MGOral; Duration: 30 DaysActiveLyricaActiveFamotidine 20 MGTAKE 1 TABLET BY MOUTH 2 TIMES DAILY Oral; Duration: 30 DaysActiveGemfibrozilActiveBiotinActive ZoloftActiveCalciumActiveVitamin B ComplexActiveBaclofenActiveVitamin DActive Social History Tobacco Use: Social History Observation Description Date Details (start date - stop date) Never Smoker NA - NA Tobacco Use/Smoking Question Answer Notes Patient is a nonsmoker Problems Problem Type SNOMED Code ICD Code Onset Dates Problem Status W/U Status Risk Notes Problem Information temporarily unavaila ble Type 2 diabetes mellitus with diabetic polyneuropathy (E11.42) ActiveconfirmedProblemInformation temporarily unavailableType 2 diabetes mellitus with foot ulcer (E11.621)ActiveconfirmedProblemInformation temporarily unavailableHereditary and idiopathic neuropathy, unspecified (G60.9)Active confirmedProblemInformation temporarily unavailableCharcot's joint, left ankle and foot (M14.672)ActiveconfirmedHighProblemInformation temporarily unavailable Primary osteoarthritis, 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 31XA)ActiveconfirmedProblemInformation temporarily unavailableType 2 diabetes mellitus with diabetic polyneuropathy (E11.42)ActiveconfirmedProblemInformation temporarily unavailable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)ActiveconfirmedProblem Information temporarily unavailableNon-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 with other specified severity (L97.428)ActiveconfirmedProblemInformation temporarily unavailableControlled type 2 diabetes mellitus with other skin ulcer, without long-term current use of insulin(E11.622)ActiveconfirmedProblem Information temporarily unavailable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)ActiveconfirmedProblemInformation temporarily unavailable Ischemic ulcer of left heel with fat layer exposed (L97.422)Activeconfirmed Vital Signs Heart Rate 88 /min 11/18/2024 Ojopglxvkwp17.2 degrees Hoiloewucv04/14/4606Gszyidps00 %11/18/20247815Cozirn76 in 11/18/20249743Ugaebl373 lbs11/18/2024BMI36.58 kg/m211/18/2024 Encounters Encounter Location Date Provider Diagnosis [facility] (PODIATRY) [address] [place], [place] [address] [address] 11/18/2024 Frances Chase Pseudarthrosis after fusion or arthrodesis M96.0 ; Charcot's joint, left ankle and foot M14.672 and Pain in left foot M79.[address] [facility] (PODIATRY) [address] [place] [address] [place] [address] 07/27/2024 Peter Rena Pseudarthrosis after fusion or arthrodesis M96.0 ; Charcot's joint, left ankle and foot M14.672 and Pain in left foot M79.[address] [facility] (PODIATRY) [address] [place] [address] [place] [address] 08/23/2024 Peter Rena Pain in left foot M79.672 ; Charcot's joint, left ankle and foot M14.672 and 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 [facility] (PODIATRY) [address] [place] [address] [place] [address] 09/20/2024 Frances Chase Pseudarthrosis after fusion or arthrodesis M96.0 ; Charcot's joint, left ankle and foot M14.672 ; Hereditary and idiopathic neuropathy, 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 and Pain in left foot M79.[address] [facility] (PODIATRY) [address] [place], [place] [address] [address] 11/01/2024 Frances Chase Charcot's joint, lef t ankle and foot M14.672 ; Pseudarthrosis after fusion or arthrodesis M96.0 and Pain in left foot M79.672 [facility] (POD[facility]) [address] [place] [address] [place] [address] 08/04/2024 Frances [facility] Assessments Encounter Date Diagnosis (ICD Code) Assessment Notes Treatment Notes Treatment Clinical Notes Section Notes 07/27/2024 Pseudarthrosis after fusion or a rthrodesis (ICD-10 - M96.0) Patient status post hindfoot [...] follow-up in 4 weeks with weightbearing foot x-rays08/23/2024harcot's joint, left ankle and foot (ICD-10 - M14.672)Patient presents for follow-up and has developed recurrent ulceration over her lateral foot howeverher midfoot remains stable but unfortunately remains nonunited. At last visit I did order a bone stimulator and are waiting back for approval. Her surgery was done back in February therefore 6 months ago and there is less than 1 cm of gap within the osteotomy. Fortunately the hardware does remain stableand I recommended continue partial protected weightbearing in a cam boot. She should have x-rays within 4 to 6 weeks after using the bone gjomdlxmqk38/19/2024ain in left foot (ICD-10 - M79.672)07/27/2024harcot's joint, left ankle and foot (ICD-10 - M14.672) 09/20/2024harcot's joint, left ankle and foot (ICD-10 - M14.672)09/20/2024 Pseudarthrosis after fusion or arthrodesis (ICD-10 - M96.0)Patient should remain in the cam boot when performing any activities out of the house. But she may p rogress to normal shoes at home as pain allows. I recommended stretching exercises for her Achillesas well as RICE therapy. I recommended bone [...] I would like weightbearing foot x-rays at follow-up11/01/2024harcot's joint, left ankle and foot (ICD-10 - M14.672)Patient seen and evaluated. Patient education provided. All questions answered to satisfaction. Patient is roughly 8 months status post medial column and midfoot, subtalar joint fusions for midfoot Charcot deformity. She remains ulcer free however there is no significant progression in bony healingtherefore I recommend a bone stimulator which has previously been denied by her insurance company. I also ordered diabetic shoes with protective inserts which will prevent ulceration. She should follow-up in a month with weightbearing foot x-rays11/01/2024Pseudarthrosis after fusion or arthrodesis (ICD-10 - M96.0)11/18/2024harcot's joint, left ankle and foot (ICD-10 - M14.672)11/18/2024Pseudarthrosis after fusion or arthrodesis (ICD-10 - M96.0) Patient is now over 9 months from medial column and subtalar joint fusion performed for midfoot Charcot reconstruction. 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 A bone stimulator was prescribed and she is to use as directed. Fortunately she has not lost any s ignificant correction and her foot remains plantigrade although there is loosening of the hardware.I recommended that she return to her cam boot but may be fitted for diabetic shoes. If she has any issues with her skin or experiences any pain or anything at all concerning she is to call the officeimmediately for follow-up otherwise she will follow-up in 2 months with foot x-rays11/18/2024 Pain in left foot (ICD-10 - M79.672)11/01/2024Pain in left foot (ICD-10 - M79.672)4Pain in left foot (ICD-10 - M79.672)08/23/2024Non-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 with other specified severity (ICD-10 - L97.428)I recommended washing the area with soap and water and daily application of Medihoney with Allevyn.She is to monitor the area for signs of infection. She will follow-up in the wound center within the next 2 weeks09/20/2024Hereditary and idiopathic neuropathy, unspecified (ICD-10 - G60.9)4Pain in left foot (ICD-10 - M79.672) Plan Of Treatment Pending Test Test Name Order Date XR Foot LT (3 views) * 07/27/2024 XR Foot LT (3 views) * 08/23/2024 XR Foot LT (3 views) * 09/20/2024 XR Foot LT (3 views) * 11/01/2024 XR Foot LT (3 views) * 11/18/2024 CBC (COMPLETE BLOOD COUNT) * 05/15/2025 CBC (COMPLETE BLOOD COUNT) * 07/21/2025 CRP 07/21/2025 CRP 05/15/2025 ESR 05/15/2025 ESR 07/21/2025 BASIC METABOLIC PANL 07/21/2025 BASIC METABOLIC PANL 05/15/2025 XR foot LT [...] Insured Coverage Start Date Coverage End Date [facility] [address] [address] [place], [place] [id number] Celina Gaspar Self - patient is the [...] recon struction 02/15/2024 cholecystomy carpal tunnel bilateral handsback surgeryhysterectomyHospitalization History Reason Date(Month/Year) see above
--- OUTSIDE RECORDS SUMMARY | 2025-07-25 16:08 | XMS_ITS | CCD ---
Author Organization [facility] Care Team Providers Care Moccasin Sewer Name Role Phone Back, Felipe Unavailable Unavailable [...] Care Unavailable Back, Felipe Primary Care Provider [phone] Back, Felipe Primary Care Provider Back, Felipe Primary Care Provider Unavailabl e Back , Felipe Primary Care Provider [phone] Back , Felipe Primary Care Provider Back , Felipe Primary Care Provider [phone] BACK, FELIPE Primary Care Unavailable MUTNAL, AMAR Admitting Unavailable MUTNAL, AMAR Attending Unavailable Back , Felipe Primary Care Provider [phone] NON STAFF Primary Care Provider UnavailMD Trace Mixon. Attending Provider Back , Felipe Primary Care Provider YOON COBB Referring Unavailable BACK, FELIPE Primary Care Unavailable Back , Felipe Primary Care Provider AKLPESH ARENAS Attending Unavail able BACK, FELIPE Primary Care Unavailable Back , Felipe Primary Care Provider [phone] FRANCES HARRIS Admitting Unavailable FRANCES HARRIS Attending Unavailable FRANCES HARRIS Consulting Unavailable FRANCES HARRIS Admitting Unavailable FRANCES HARRIS Attending Unavailable [facility], DR PIPER Ackerman Consulting Unavailable HIGHLFRANCES HERNANDEZ Consulting Unavailable FRANCES HARRIS Admitting Unavailable FRANCES HARRIS Attending Unavailable [place], DR EMILY Riojas Consulting Unavailable FRANCES HARRIS [...] Unavailable Back , Bill Primary Care Provider [phone] FOZIA MENG Attending Unavailable LYNN BLOCK Attending [...] of OnsetReaction(s) Facility (20 sources)Chlorhexidine; Translations: [CHLORHEXIDINE]Drug Tpytjpj37-13-6327 [facility] (12 sources)topiramate; Translations: [TOPIRAMATE]Drug Pvufnka26-23-3520[facility] (See Comments)[facility] (20 sources)TopiramatePropensity to adverse imqdpzacn83-40-3929[facility] (1 source)Chlorhexidine; Translations: [Chlorhexidine Gluconate]Drug Allergy [facility] Medications Current Medications MedicationDrug Class(es)DatesSig (Normalized)Sig (Original)acetaminophen 325 mg / HYDROcodone bitartrate 5 mg oral tablet (10 sources)Opioid AgonistStart: 08-96-6136UWIKEdifnmu-acetaminophen (NORCO) 5- 325 MG per tablettake 1 tablet by mouth every eight hours as neededhydroCODone- acetaminophen 5-325 MG Tab tablet take 1 tablet by mouth every 8 hours as needed. ActiveALPRAZolam 0.25 mg oral tablet (20 sources)BenzodiazepineStart: 53-86-2770kylk 1 tablet by mouth once daily ALPRAZolam (XANAX) 0.25 MG tablet Take 1 tablet by mouth nightly. 03/14/2025 Activeamoxicillin 875 mg / clavulanate 125 mg oral tablet (1 source)Penicillin-class AntibacterialStart: 08-08-2020 End: 27-44-0532rdqh 1 tablet by mouth twice dailyamoxicillin-clavulanate (AUGMENTIN) 875-125 MG per tablet Indications: Bacterial sinusitis Take 1 tablet by mouth 2 times daily for 7 days 14 tablet 0 08/08/2020 08/15/2020 Wfupgz92 hr amphetamine aspartate 5 mg / amphetamine sulfate 5 mg / dextroamphetamine saccharate 5 mg / dextroamphetamine sulfate 5 mg extended release oral capsule (4 sources)Central Nervous System StimulantStart: 02-25-2023 End: 72-54-8252khdwknxqdxtjbrcho-amphetamine (ADDERALL XR) 20 MG 24 hr capsule 02/25/2023 10/11/2024 Discontinued (Patient Discharge)Start: 59-92-7387kwsn 1 capsule by mouth once daily in [...] tablet (20 sources)gamma-Aminobutyric Acid-ergic AgonistStart: 12-16-2024 End: 54-41-2576jlrz 2 tablets by mouth at bedtimebaclofen (Lioresal) 10 MG tablet Indications: Cervical paraspinal muscle spasm TAKE 2 TABLETS BY MOUTH AT BEDTIME FOR 30 DAYS 60 tablet 3 05/24/2025 ActiveStart: 80-97-3292jtnc 2 tablets by mouth at bedtimebaclofen (Lioresal) 10 MG tablet Indications: Cervical paraspinal muscle spasm TAKE 2 TABLETS BY MOUTH AT BEDTIME FOR 30 DAYS 60 tablet 3 07/12/2024 ActiveStart: 21-66-1140ubcq 1 tablet by mouth once dailybaclofen (LIORESAL) 10 MG tablet Take 1 tablet by mouth nightly 04/19/2022 Activebiotin 1 mg oral tablet (20 sources)Start: 20-71-7941tedm 1 tablet by mouth once dailyBiotin 1000 [...] oral capsule (17 sources)Cephalosporin AntibacterialStart: 08-13-2023 End: 50-49-2692xuyj 1 capsule by mouth once daily as needed for urinary tract infectioncephALEXin (KEFLEX) 250 MG capsule Indications: Frequent UTI Take 1 capsule by mouth daily as needed (post-coital UTI prophylaxis) 30 capsule 1 08/13/2023 ActiveStart: 41-55-7775efki 1 capsule by mouth once daily as needed for urinary tract infectioncephALEXin (KEFLEX) 250 MG capsule Indications: Frequent UTI Take 1 capsule by mouth daily as needed (post-coital UTI prophylaxis) 30 capsule 1 08/07/2022 Activecholecalciferol 0.05 mg oral capsule (20 sources)Vitamin DStart: 70-08-5312jrss 1 capsule by mouth once daily Cholecalciferol (VITAMIN D) 2000 UNITS CAPS capsule Indications: Vitamin D deficiency Take 1 capsule by mouth daily. 30 capsule 12 09/11/2014 Active cholecalciferol (Vitamin D-3) 50 MCG (1999 UT) tablet Take by mouth Active cholecalciferol, vitamin D3, (VITAMIN D3) 2,000 unit Tab Take by mouth. Active clindamycin 300 mg oral capsule (14 sources)Lincosamide AntibacterialStart: 04-04-2025 End: 38-95-5164ikzwsyfiaoz (CLEOCIN) 300 MG capsule 04/13/2025 ActiveStart: 75-84-4801kfeefzsfqou (CLEOCIN) 150 MG capsulecyclobenzaprine hydrochloride 5 mg oral tablet (16 sources)Muscle Relaxanttake 0.5 tablet by mouth once dailycyclobenzaprine (FLEXERIL) 5 MG tablet Take 5 mg by mouth nightly 1/2 tablet every night 0 Activedapagliflozin 10 mg oral tablet (5 sources)Sodium-Glucose Cotransporter 2 InhibitorStart: 56-63-2929akkn 1 tablet by mouth once daily in the morningdapagliflozin (FARXIGA) 10 MG tablet Indications: Stage 3a chronic kidney disease (HCC) , Pre-diabetes Take 1 tablet by mouth every morning 90 tablet 1 06/19/2025 ActiveStart: 77-44-9562ocmp 1 tablet by mouth once daily in the morningdapagliflozin (FARXIGA) 10 MG tablet Indications: Stage 3a chronic kidney disease (HCC) , Pre-diabetes Take 1 tablet by mouth every morning 90 tablet 1 04/18/2025 Pkcgxt36 hr desvenlafaxine succinate 25 mg extended release oral tablet (1 source)Serotonin and Norepinephrine Reuptake InhibitorStart: 07-29-2021 desvenlafaxine succinate (PRISTIQ) 25 MG TB24 extended release tablet 25 mg daily 0 07/29/2021 Activedextromethorphan hydrobromide 15 mg / guaiFENesin 400 mg / pseudoephedrine hydrochloride 60 mg oraltablet (1 source)alpha-Adrenergic Agonist, Uncompetitive E-rwnlkt-L-aspartate Receptor Antagonist, Sigma-1 AgonistStart: 02-13-2021 End: 63-38-6646rcnd 1 tablet by mouth every six hours as needed Iuyyplnauwjcbog-SX-SR (CAPMIST DM) 60-15-400 MG TABS Take 1 tablet by mouth every 6 hours as needed(Sinus pressure) 28 tablet 0 02/13/2021 02/20/2021 Active doxycycline hyclate 100 mg oral capsule (15 sources)Tetracycline-class DrugStart: 09-20-2018 End: 70-24-1477nyco 1 capsule by mouth twice dailydoxycycline hyclate [...] mg/mg ophthalmic ointment (2 sources)Macrolide, Macrolide AntimicrobialStart: 13-63-9910iozaneikeivl 5 MG/GM Ointment ophthalmic ointment Apply to eye incisions 2 x a day 1 Tube 0 08/19/2017 Activefamotidine 20 mg oral tablet (20 sources)Histamine-2 Receptor AntagonistStart: 68-52-8116yrhyjdggmk (PEPCID) 20 MG tablet Indications: Gastroesophageal reflux disease without esophagitis TA KE 1 TABLET TWICE A DAY 180 tablet 3 04/03/2025 ActiveStart: 59-43-0829phcv 1 tablet by mouth twice dailyfamotidine (PEPCID) 20 MG tablet Indications: Gastroesophageal reflux disease without esophagitis Take 1 tablet by mouth 2 times daily 60 tablet 5 05/26/2023 ActiveStart: 07-22-0687gktj 1 tablet by mouth twice dailyfamotidine (PEPCID) 20 MG tablet Indications: Gastroesophageal reflux disease without esophagitis Take 1 tablet by mouth 2 times daily 60 tablet 3 2022 Activefluconazole 150 mg oral tablet (1 source)Azole AntifungalStart: 16-01-3550utbtoxfrzrd (DIFLUCAN) 150 MG tablet Indications: Antibiotic-induced yeast infection Take 1 tablet by mouth at first sign of yeast infection and repeat in 72 hours for severe infection. 2 tablet 0 06/06/2021 Activefluticasone propionate 0.05 mg/actuat metered dose nasal spray (20 sources)CorticosteroidStart: 81-91-1485iamv 2 spray(s) nasal route once dailyfluticasone (FLONASE) 50 MCG/ACT nasal spray Indications: Seasonal allergies USE 2 SPRAYS IN EACH NOSTRIL DAILY 48 g 3 09/22/2022 ActiveStart: 54-20-8640wuhg 2 spray(s) nasal route once dailyfluticasone (Flonase) 50 MCG/ACT nasal spray Administer 2 sprays into each nostril Daily 09/22/2022ctiveStart: 54-06-3585uecz 2 spray(s) nasal route in the morningfluticasone (Flonase) 50 MCG/ACT nasal spray Administer 2 sprays into each nostril in the morning. 1 11/23/2021 ActiveStart: 01-52-1459sqwo 2 spray(s) nasal route once daily fluticasone [...] 600 mg oral tablet (2 sources)Anti-epileptic AgentStart: 67-76-1073gbuh 1 tablet by mouth twice dailygabapentin 600 [...] mg oral capsule (10 sources)Guanylate Cyclase-C AgonistStart: 24-33-3861kbbv 1 capsule by mouth once dailylinaclotide (LINZESS) 145 MCG capsule Indications: Drug-induced constipation Take 1 capsule by mouth daily 90 capsule 1 05/09/2024 Active lisdexamfetamine dimesylate 40 mg oral capsule (20 sources)Central Nervous System StimulantStart: 54-56-4968TPEDDEN 40 MG CAPS Take 50 mg by mouth daily. 03/04/2023 ActiveStart: 07-14-2394RRYVUWE 40 MG CAPS Start: 83-68-5822EWWDEOD 40 MG CAPS daily. 0 05/06/2021 ActiveStart: 01-10-2021 VYVANSE 20 MG CAPS End: 04-77-2514bfsg 1 capsule by mouth in the morninglisdexamfetamine (Vyvanse) 50 MG capsule Take 50 mg by mouth in the morning. 09/14/2024 Discontinued (Ineffective)loperamide hydrochloride 2 mg oral capsule (1 source)Opioid AgonistStart: 01-21-2021 End: 21-92-2317peph 1 capsule by mouth four times daily as needed for diarrhea loperamide (RA ANTI-DIARRHEAL) 2 MG capsule Indications: Diarrhea in adult patient Take 1 capsule by mouth 4 times daily as needed for Diarrhea 20 capsule 0 01/21/2021 01/26/2021 Activemelatonin 3 mg oral tablet (17 sources) End: 97-18-3279yftkekxqy 3 mg Tab Take by mouth nightly. 10/11/2024 Discontinued (Patient Discharge)methocarbamol 500 mg oral tablet (2 sources)Muscle RelaxantStart: 74-43-7590hhuvzlhllxjjv (ROBAXIN) 500 MG tablet montelukast 10 mg oral tablet (20 sources)Leukotriene Receptor AntagonistStart: 09-22-2022 End: 98-53-1389jwzrakjefah (SINGULAIR) 10 MG tablet Indications: Seasonal allergies TAKE 1 TABLET NIGHTLY 90 tablet 3 09/22/2022 ActiveStart: 04-11-2022 take 1 tablet by mouth once dailymontelukast (SINGULAIR) 10 MG tablet Indications: Seasonal allergies Take 1 tablet by mouth surnhha21 tablet 1 04/11/2022 ActiveStart: 06-38-2971udjsmbhuzfq (SINGULAIR) 10 MG tablet nitrofurantoin, macrocrystals 25 mg / nitrofurantoin, monohydrate 75 mg oral capsule (1 source)Nitrofuran AntibacterialStart: 06-11-2021 End: 05-68-9743grgl 1 capsule by mouth twice dailynitrofurantoin, macrocrystal- monohydrate, (MACROBID) 100 MG capsule Indications: Acute cystitis with hematuria Take 1 capsule by mouth 2 times daily for 5 days 10 capsule 0 06/11/2021 06/16/2021 Activenortriptyline 50 mg oral capsule (20 sources)Tricyclic AntidepressantStart: 02-13-2025 End: 76-09-8302zxfl 3 capsules by mouth once dailynortriptyline (PAMELOR) 50 MG capsule Take 3 capsules by mouth nightly 02/13/2025 02/13/2026 ActiveStart: 09-14-2024 End: 26-84-8909uhxu 2 capsules by mouth at bedtimenortriptyline (Pamelor) 50 MG capsule Indications: Idiopathic progressive polyneuropathy , Intractable 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 (CMS/HCC) Take 2 capsules (100 mg) by mouth at bedtime 180 capsule 3 11/02/2024 02/13/2025 Discontinued (Reorder)Start: 06-10-2024 End: 11-49-6907agab 2 capsules by mouth at bedtimenortriptyline (Pamelor) 25 MG capsule Indications: Idiopathic progressive polyneuropathy , Bilateral carpal tunnel syndrome , Restless legs , Intractable chronic migraine without aura and with statusmigrainosus (CMS/HCC) Take two capsules by mouth at bedtime. Total of 50 mg. 90 capsule 3 06/10/2024 09/14/2024 Discontinued (Reorder)Start: 11-12-2023 End: 51-41-9690vaje 1 capsule by mouth at bedtimenortriptyline (Pamelor) 25 MG capsule Indications: Idiopathic progressive polyneuropathy , Bilateral carpal tunnel syndrome , Restless legs , Intractable chronic migraine without aura and with statusmigrainosus (CMS/HCC) Take 1 capsule (25 mg) by mouth at bedtime 90 capsule 3 11/12/2023 06/10/2024iscontinued (Reorder)PARoxetine hydrochloride 20 mg oral tablet (5 sources)Serotonin Reuptake InhibitorStart: 61-87-1569ejxt 1 tablet by mouth once dailyparoxetine 20 MG Tab take 20 mg by mouth daily. 06/09/2017 Active phentermine hydrochloride 37.5 mg oral tablet (3 sources)Sympathomimetic Amine AnorecticStart: 05-26-2023 End: 96-56-4965ovnr 1 tablet by mouth once daily before breakfastphentermine (ADIPEX-P) 37.5 MG tablet Indications: Class 2 severe obesity due to excess calories with serious comorbidity and body mass index (BMI) of 38.0 to 38.9 in adult ([facility]) Take 1 tablet by mouth every morning (before breakfast) for 30 days. Max Daily Amount: 37.5 mg 30 tablet 0 05/26/2023 06/25/2023 ActiveStart: 05-27-2019 End: 56-87-5220zovx 40-44.9 capsules by mouth once daily in the morning phentermine (ADIPEX-P) 37.5 MG capsule Indications: Class 3 severe obesity due to excess calories without serious comorbidity with body mass index (BMI) of 40.0 to 44.9 in adult ([facility]) Take 1 capsule by mouth every morning for 30 days. 30 capsule 0 05/27/2019 06/26/2019 ActivepredniSONE 20 mg oral tablet (1 source)Start: 09-16-2020 End: 34-47-2079xcew 3 tablets by mouth once dailypredniSONE (DELTASONE) 20 MG tablet Take 3 tablets by mouth daily for 5 days 15 tablet 0 Activepregabalin 300 mg oral capsule (20 sources)Start: 02-20-2022 End: 05-86-5586qlpy 1 capsule by mouth twice dailypregabalin (LYRICA) 300 MG capsule Take 1 capsule by mouth 2 times daily. 02/20/2022 ActiveStart: 81-84-2295wluf 1 capsule by mouth three times dailypregabalin (LYRICA) 150 MG capsule Indications: Epidural abscess , Discitis of thoracic region , Infection of thoracic spine (HCC) , Peripheral polyneuropathy Take 1 capsule by mouth 3 times daily for 30 days.. 90 capsule 0 08/25/2018 ActiveraNITIdine 150 mg oral tablet (1 source)Histamine-2 Receptor AntagonistStart: 13-14-0807fkps 1 tablet by mouth twice dailyraNITIdine (ZANTAC) 150 MG tablet Indications: Epigastric abdominal pain Take 1 tablet by mouth 2 times daily 60 tablet 3 12/09/2019 Active rimegepant 75 mg disintegrating oral tablet (20 sources)Start: 03-34-7519Uyzxoisuce Sulfate (Nurtec) 75 MG tablet dispersible Indications: Intractable 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 Take 75 mg by mouth See administration instructions Take 1- 75mg tablet by mouth as needed at the onset of migraine. 16 tablet 11 10/31/2024 ActiveStart: 42-18-4533Csnhvwmurs Sulfate (Nurtec) 75 MG tablet dispersible Indications: Intractable 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 (CMS/HCC) Take 75 mg by mouth See administration instructions Take 1- 75mg tablet by mouth as needed at the onset of migraine. 16 tablet 11 09/07/2024 ActiveStart: 32-55-0679Irikgeeppb Sulfate (Nurtec) 75 MG tablet dispersible Indications: Intractable 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 (CMS/HCC) Take 75 mg by mouth See administration instructions. Take 1- 75mg tablet by mouth as needed at the onset of migraine. 16 tablet 11 08/20/2023 ActiveStart: 70-99-6212PHGGXA [address] 1 TABLET ON OR UNDER THE TONGUE EVERY OTHER DAY 01/02/2022 ActiverOPINIRole 1 mg oral tablet (20 sources)Nonergot Dopamine AgonistStart: 10-31-2024 End: 19-25-5753chcu 1 tablet by mouth in the morning, then take 1 tablet by mouth in the evening, then take 1 tablet by mouth at bedtimerOPINIRole (Requip) 0.5 MG tablet Indications: Restless legs Take 1 tablet (0.5 mg) by mouth in the morning and 1 tablet (0.5 mg) in the evening and 1 tablet (0.5 mg) before bedtime. 270 tablet 3 10/31/2024 02/13/2025 Discontinued (Reorder)Start: 14-89-8565fFBGFYArqi (Requip) 0.5 MG tablet Indications: Restless legs TAKE 1 TABLET THREE TIMES A DAY 270 tablet 3 08/24/2023 ActiveStart: 02-10-2023 rOPINIRole (REQUIP) 0.5 MG tabletStart: 04-02-2021 End: 32-35-8578rpho 1 tablet by mouth three times dailyrOPINIRole (REQUIP) 1 MG tablet Indications: Restless legs Take 1 tablet by mouth 3 times daily 270tablet 1 10/10/2024 ActiveStart: 50-61-3487hFTKPSTljq (REQUIP) 0.5 MG tablettake 1 tablet by mouth twice dailyrOPINIRole (REQUIP) 0.5 MG tablet Take 0.5 mg by mouth 2 times daily 0 Activesertraline 100 mg oral tablet (20 sources)Serotonin Reuptake InhibitorStart: 27-31-1370tzmqhtvwup (Zoloft) 100 MG tablet 02/25/2023 ActiveStart: 33-69-1645cini 2 tablets by mouth once daily sertraline (ZOLOFT) 100 MG tablet Take 2 tablets by mouth daily Currently decreasing this medication 07/30/2020 ActiveStart: 30-18-8814rvlr 1 tablet by mouth once dailysertraline (ZOLOFT) 100 MG tablet Take 100 mg by mouth daily Currently decreasing this medication ActiveStart: 47-79-7338oaeh 2 tablets by mouth once dailysertraline (ZOLOFT) 50 MG tablet Take 100 mg by mouth daily 2 QD 0 07/06/2019 ActiveStart: 46-69-6600seairiodvd (ZOLOFT) 50 MG tablet sucralfate 1000 mg oral tablet (1 source)Aluminum ComplexStart: 44-09-7355mvph 1 tablet by mouth four times daily before mealtimesucralfate (CARAFATE) 1 GM tablet Indications: Epigastric abdominal pain Take 1 tablet by mouth 4 times daily (before meals and nightly) 120 tablet 0 12/09/2019 Activesulfamethoxazole 800 mg / trimethoprim 160 mg oral tablet (7 sources)Dihydrofolate Reductase Inhibitor Antibacterial, Sulfonamide AntimicrobialStart: 04-28-2022 End: 31-93-5642ccwv 1 tablet by mouth once in the morning, then take 1 tablet by mouth once at bedtimesulfamethoxazole-trimethoprim (BACTRIM DS) 800-160 MG per tablet Indications: Acute cystitis with hematuria Take 1 tablet by mouth in the morning and 1 tablet before bedtime. Do all this for 7 days. 14 tablet 0 04/28/2022 05/05/2022 ActiveStart: 01-22-2022 End: 69-44-3712gvbl 1 tablet by mouth twice dailysulfamethoxazole-trimethoprim (BACTRIM DS;SEPTRA DS) 800-160 MG per tablet Take 1 tablet by mouth 2times daily for 7 days 14 tablet 0 01/22/2022 01/29/2022 ActiveStart: 08-01-2021 End: 16-56-1533ltmg 1 tablet by mouth once dailysulfamethoxazole-trimethoprim (BACTRIM) 400-80 MG per tablet Indications: Frequent UTI , Urinary urgency , Urinary frequency Take 1 tablet by mouth daily Take one tablet after intercourse 30 tablet 10/30/2021 Activesulfamethoxazole-trimethoprim (Bactrim) 400-80 MG tablet Take by mouth Activethiamine 100 mg oral tablet (6 sources)Start: 08-20-2023 End: 43-14-7827irra 1 tablet by mouth in the morningthiamine (Vitamin B-1) 100 MG tablet Indications: Bilateral carpal tunnel syndrome , Idiopathic progressive polyneuropathy , Restless legs Take 1 tablet (100 mg) by mouth in the morning. 30 tablet 08/19/2024 ActivetiZANidine 4 mg oral tablet (14 sources)Central alpha-2 Adrenergic AgonistStart: 83-82-9008diTLEbedbs (ZANAFLEX) 4 MG tablet Take by mouth nightly 0 05/05/2020 Activetopiramate 50 mg oral tablet (15 sources)Start: 09-22-2023 End: 22-38-0551xrlhimgrie 50 MG tablet 09/22/2023 09/14/2024 Discontinued (Side effects)Start: 42-63-7728icmebaggzx (TOPAMAX) 25 MG tabletvilazodone hydrochloride 40 mg oral tablet (8 sources)Start: 15-90-3696nlwu 1 tablet by mouth once dailyvilazodone HCl (VIIBRYD) 40 MG TABS Indications: Depression with anxiety Take 1 tablet by mouth daily 30 tablet 3 05/27/2019 Active Completed/Discontinued Medications MedicationDrug Class(es)DatesSig (Normalized)Sig (Original)alendronic acid 70 mg oral tablet (2 sources)BisphosphonateStart: 07-01-2024 End: 33-26-4668mkvs 1 tablet by mouth once dailyalendronate (Fosamax) 70 MG tablet 1 tablet 30 minutes before the first food, beverage or medicine of the day with plain water Orally weekly for 94 days 07/01/2024 05/24/2025 Discontinued (Therapy completed)cetirizine hydrochloride 10 mg oral capsule (20 sources)Histamine-1 Receptor AntagonistStart: 06-09-2017 End: 95-27-4256krsgmhacie 10 mg capStart: 98-57-1177Zoqyjozarj HCl (ALL DAY ALLERGY) 10 MG CapStart: 91-24-0417tgwu 1 tablet by mouth once dailycetirizine (ZYRTEC) 10 MG tablet TAKE 1 TABLET BY MOUTH DAILY. 30 tablet 4 02/11/2016 Scdrby161 ml ciprofloxacin 2 mg/ml injection (4 sources)Quinolone AntimicrobialStart: 04-04-2025 End: 91-57-0460283 mg, IntraVENous, ONCE, 1 dose, On Thu04/04/25 at 2200, Antimicrobial Indications: Skin and Soft Tissue InfectionStart: 04-04-2025 End: 69-22-9372egyq 1 tablet by mouth twice dailyciprofloxacin (CIPRO) 500 MG tablet Take 1 tablet by mouth 2 times daily for 10 days 20 tablet 04/04/2025 04/14/2025 ActiveStart: 04-13-2021 End: 80-95-6928egju 1 tablet by mouth twice dailyciprofloxacin (CIPRO) 250 MG tablet Indications: Acute cystitis with hematuria Take 1 tablet by mouth 2 times daily for 3 days 6 tablet 0 04/13/2021 04/16/2021 Activeclindamycin (CLEOCIN) 600 mg in sodium chloride 0.9 % 50 mL IVPB (1 source)Start: 04-04-2025 End: 84-57-9721651 mg, IntraVENous, ONCE, 1 dose, On Thu04/04/25 at 2200, Antimicrobial Indications: Skin and Soft Tissue Infectiondiclofenac sodium 0.01 mg/mg topical gel (20 sources)Nonsteroidal Anti-inflammatory DrugStart: 01-06-2023 End: 89-28-3481jhohuckree sodium 1 % gel 01/06/2023 05/24/2025 Discontinued (Therapy completed)Start: 74-39-0222ktlddmlytk sodium 1 % GELgadobenate dimeglumine (MULTIHANCE) injection 10 mL (2 sources)Start: 04-11-2025 End: 65-55-9319preg 1 dose intravenously once10 mL, IntraVENous, IMG ONCE PRN, 1 dose, Starting on Thu04/11/25 at 1244, Until Thu04/11/25 at 1245,OtherStart: 06-25-2022 End: 48-19-3078qzkcmdnfwn dimeglumine (MULTIHANCE) injection 10 mLhydrOXYzine pamoate 50 mg oral capsule (20 sources)AntihistamineStart: 03-06-2023 End: 18-14-2111yngrSQJkmap pamoate (Vistaril) 50 MG capsule Indications: Allergy, subsequent encounter Take 1 capsule (50 mg) by mouth as needed at bedtime for itching. 90 capsule 1 03/06/2023 03/14/2025 Discontinuedicosapent ethyl 1000 mg oral capsule (15 sources)Start: 05-17-2019 End: 03-44-2445jvdr 2 capsules by mouth twice daily, then take 1 capsule by mouthIcosapent Ethyl (VASCEPA) 1 g CAPS capsule Indications: Mixed hyperlipidemia Take 2 capsules by mouth 2 times daily 120 capsule 5 05/17/2019 09/16/2020 Discontinued (LIST CLEANUP)methylPREDNISolone 125 mg injection (1 source)CorticosteroidStart: 09-16-2020 End: 49-01-8500ioyetzCNDECCNxmrha sodium (SOLU-MEDROL) injection 125 mgStart: 09-16-2020 End: 95-41-7161slpevdQXAHNWMfomtq sodium (SOLU-MEDROL) injection 125 mg2 ml orphenadrine citrate 30 mg/ml injection (1 source)Muscle RelaxantStart: 09-16-2020 End: 38-99-5327xppscowczpaa (NORFLEX) injection 30 mg50 ml sodium chloride 9 mg/ml injection (1 source)Start: 04-04-2025 End: ,000 mL (10.3 mL/kg), IntraVENous, at 1,935.5 mL/hr, Administer over 31 Minutes, ONCE, On Thu04/04/25 at 2200, For 1 dose Problems Active Problems Problem ClassificationProblemDateDocumented DateEpisodic/ChronicAnxiety disorders (20 sources)Anxiety; Translations: [Mixed anxiety and depressive disorder]Onset: [id number] kidney disease (20 sources)Chronic kidney disease stage 3; Translations: [Chronic renal insufficiency]Onset: 378488-28-0317PnmigzoVbjhqir kidney disease (16 sources)Chronic renal insufficiency; Translations: [Chronic kidney disease] Onset: 647839-60-2008Odeiybq ulcer of skin (9 sources)Deep tissue pressure injury; Translations: [Pressure-induced deep tissue damage of other site]Onset: [id number] mellitus with complications (20 sources)Polyneuropathy due to type 2 diabetes mellitus; Translations: [Type 2 diabetes mellitus with diabetic polyneuropathy]Onset: ChronicDisorders of lipid metabolism (20 sources)Mixed hypercholesterolemia and hypertriglyceridemia; Translations: [Mixed hyperlipidemia]Onset: 06-24-2013 Resolved: 101769-10-0931BdlvbyxMxelkfjshy disorders (20 sources)Gastroesophageal reflux disease; Translations: [Gastro-esophageal reflux disease without esophagitis]Onset: 400967-22-5139GzgnrdsKszzpihj of lower limb (2 sources)Closed fracture of second metatarsal bone; Translations: [Nondisplaced fracture of second metatarsal bone, right foot, initial encounter for closed fracture]97-61-1793ZuaybhkpDnqmatxsboikv symptoms and ill-defined conditions (5 sources)Dysuria; Translations: [Dysuria]EpisodicHeadache; including migraine (20 sources)Migraine without aura, not refractory ; Translations: [Chronic migraine without aura, not intractable, without status migrainosus]Onset: 778567-66-0838YmtyqsgJiibhyrrpecny and screening for infectious disease (4 sources)Suspected disease caused by 2019-nCoV; Translations: [Suspected COVID-19 virus infection]EpisodicInfective arthritis and osteomyelitis (except that caused by tuberculosis or sexually transmitted disease) (20 sources)Osteomyelitis, unspecified; Translations: [Infection of thoracic spine]Onset: 805299-18-5386UcttrtwYdodfxw and fatigue (20 sources)Fatigue; Translations: [Chronic fatigue, unspecified]Onset: 448215-07-6801IuiimxwOpaykepgy; nephrosis; renal sclerosis (20 sources)Chronic glomerulonephritis; Translations: [Chronic nephritic syndrome with unspecified morphologic changes]Onset: 807318-28-4046Vmvxzkk Nutritional deficiencies (20 sources)Vitamin D deficiency; Translations: [Vitamin D deficiency, unspecified]Onset: 453022-29-5196GonkqkqYjmgtohmzrazan (20 sources)Degenerative joint disease of ankle AND/OR foot; Translations: [Primary osteoarthritis, unspecifiedankle and foot]Onset: ChronicOther acquired deformities (20 sources)Contracture of joint of left ankle; Translations: [Contracture, left ankle]Onset: 573105-04-4732HmhflqcGlknw acquired deformities (1 source)Deformity of lower limb; Translations: [Other specified acquired deformities of unspecified lower leg]55-10-2255EopzzhczFoysm and unspecified benign neoplasm (1 source)Lipoma of skin and subcutaneous tissue of neck; Translations: [Benign lipomatous neoplasm of skin and subcutaneous tissue of head, face and neck] 64-04-5585EapymgrsPumiu and unspecified benign neoplasm (2 sources)Benign lipomatous neoplasm of skin and subcutaneous tissue of head, face and neck; Translations: [Benign lipomatous neoplasm of skin and subcutaneous tissue of head, face and neck]Onset: 69-77-7879AhkkovggDybum circulatory disease (4 sources)Other specified symptoms and signs involving the circulatory and respiratory systems; Translations:[OTH SPEC SX SIGNS INVLV CIRC RS]Onset: 05-94-2358CkbqvwpoIbmms connective tissue disease (2 sources)Other muscle spasm; Translations: [Other muscle spasm]Onset: 89-60-8311LasoxvfzZooit connective tissue disease (1 source)Foot pain; Translations: [...] cervical paraspinous muscle; Translations: [Other muscle spasm]Onset: 572475-63-3515JwizsgpkDwidh connective tissue disease (8 sources)Pain in right foot; Translations: [Pain in right foot]04-06-2025 EpisodicOther diseases of kidney and ureters (2 sources)Disorder of kidney and ureter, unspecified; Translations: [Disorder of kidney and ureter, unspecified]Onset: 16-79-5388MuqrmsisRingu hereditary and degenerative nervous system conditions (20 sources)Restless legs; Translations: [Restless legs syndrome]Onset: 315743-38-1598WfsuivwHdiui lower respiratory disease (1 source)Dyspnea; Translations: [SOB (shortness of breath)]EpisodicOther lower respiratory disease (2 sources)Snoring; Translations: [Snoring]75-46-4718NczbjlgdVyxpv nervous system disorders (3 sources)Polyneuropathy, unspecified; Translations: [Polyneuropathy, unspecified]Onset: 36-43-6717EuzyxeeWdghe nervous system disorders (20 sources)Peripheral nerve disease ; Translations: [Polyneuropathy, unspecified]Onset: 285242-85-1816OnosoqwKrqgp nervous system disorders (20 sources)Carpal tunnel syndrome of right wrist; Translations: [Carpal tunnel syndrome, right upper limb]Onset: 257311-41-5599IiukkymZacbj nervous system disorders (20 sources)Idiopathic progressive polyneuropathy; Translations: [Idiopathic progressive neuropathy]Onset: 338136-31-9975FngtnumGqwqu nervous system disorders (20 sources)Bilateral carpal tunnel syndrome; Translations: [Carpal tunnel syndrome, bilateral upper limbs]Onset: 807866-04-5791ZlqtfxyGosuq nervous system disorders (20 sources)Carpal tunnel syndrome of left wrist; Translations: [Carpal tunnel syndrome, left upper limb]Onset: 800216-57-3075HiolklaFggoc nervous system disorders (20 sources)Inattention; Translations: [Attention and concentration deficit] Onset: 746868-35-4428LnmszwfRmwxd nervous system disorders (20 sources)Disorder of the peripheral nervous system; Translations: [Hereditary and idiopathic neuropathy, unspecified]Onset: 728870-24-8795GkwwosyHdxsl nervous system disorders (20 sources)Tarsal tunnel syndrome; Translations: [Tarsal tunnel syndrome, unspecified lower limb]Onset: 180027-95-2292YnixhatCfbpp nervous system disorders (4 sources)Abnormal gait; Translations: [Unsteadiness on feet]15-98-0956Tarmgngu Other nervous system disorders (13 sources)Carpal tunnel syndrome of right wrist; Translations: [Carpal tunnel syndrome on right]Onset: Other non-epithelial cancer of skin (15 sources)Basal cell carcinoma of face; Translations: [Basal cell carcinoma of skin of face]Onset: 619051-54-8675QkrpqeoHosxl non-traumatic joint disorders (4 sources)Charcot's joint, left ankle and foot; Translations: [CHARCOTS JOINT LEFT ANKLE AND FO]Onset: 02-36-7514JurjjivZsduu non-traumatic joint disorders (3 sources)Charcot arthropathy of midfoot; Translations: [Charcot's joint, unspecified ankle and foot]33-44-6105NkyqkqlBqbnp non-traumatic joint disorders (20 sources)Acute arthropathy; Translations: [Arthropathy, unspecified]Onset: 238736-91-3316XoxhntlOmjlv non-traumatic joint disorders (20 sources)Charcot's arthropathy; Translations: [Charcot's joint, left ankle and foot]Onset: 170432-15-2096CvxwqptBaplq non-traumatic joint disorders (1 source)Pain in left ankle and joints of left foot; Translations: [PAIN IN LEFT ANKLE]Onset: 27-86-9202SgivgqnlTfpjd nutritional; endocrine; and metabolic disorders (2 sources)Obesity caused by energy imbalance; Translations: [Other obesity due to excess calories]86-74-1610FagurdtApvos screening for suspected conditions (not mental disorders or infectious disease) (13 sources)Elevated C-reactive protein; Translations: [Elevated C-reactive protein (CRP)]84-28-1602Jpugz skin disorders (1 source)Mass of neck; Translations: [Localized swelling, mass and lump, neck] EpisodicOther upper respiratory disease (20 sources)Seasonal allergy; Translations: [Other seasonal allergic rhinitis] Onset: 417688-69-0991MzodhnyFzaqh upper respiratory disease (2 sources)Allergic rhinitis due to pollen; Translations: [Allergic rhinitis due to pollen]45-38-9138JmocydpFpgcyyrl codes; unclassified (20 sources)Obstructive sleep apnea syndrome; Translations: [Obstructive sleep apnea (adult) (pediatric)]Onset: 249227-42-8740WwhosouHpvtfskw codes; unclassified (20 sources)Hypersomnia; Translations: [Hypersomnia, unspecified]Onset: 321110-79-5111DlcquyuEkyshpfl codes; unclassified (2 sources)Localized edema; Translations: [Localized edema]Onset: 01-06-2023 EpisodicResidual codes; unclassified (2 sources)Edema, generalized; Translations: [Generalized edema]04-10-2025 EpisodicSepticemia (except in labor) (20 sources)Sepsis; Translations: [Methicillin resistant Staphylococcus aureus infection]Onset: 08-15-2018 Resolved: 354432-54-4904TwbkfwmtQgcn and subcutaneous tissue infections (4 sources)Infection of toe ; Translations: [Local infection of the skin and subcutaneous tissue, unspecified]12-95-2940VzofdlzoJkuhhkuvxfs; intervertebral disc disorders; other back problems (20 sources)Discitis, unspecified, thoracic region; Translations: [Degeneration of thoracic intervertebral disc]Onset: 641845-71-8279OixmcrkPyemiplvfff; intervertebral disc disorders; other back problems (20 sources)Radiculopathy, cervical region; Translations: [Acute thoracic back pain]Onset: 763894-91-6010CgzghkapDtvjwre disorders (20 sources)Thyroid nodule; Translations: [Nontoxic single thyroid nodule]Onset: 021252-39-3207LmidklfIjjrahqtdttv (1 source)Pressure-induced deep tissue damage of other site; Translations: [Pressure-induced deep tissue damage of other site]Onset: 03-86-7494Pfvaeic tract infections (20 sources)Acute cystitis; Translations: [Acute cystitis with hematuria]Onset: 15-83-1228KlkjmmhwVhbfw infection (1 source)Viral disease; Translations: [Viral infection, unspecified]Episodic Past or Other Problems Problem ClassificationProblemDateDocumented DateEpisodic/ChronicAbdominal pain (20 sources)Female genital organ symptoms; Translations: [Pelvic and perineal pain]Onset: 00-16-4324ZttnienyRaceuoohw infection; unspecified site (20 sources)Methicillin resistant Staphylococcus aureus infection; Translations: [Bacteremia due to Methicillinresistant Staphylococcus aureus] Resolved: 662170-16-0735FrctbxhdOgbdihtpfn and other anemia (20 sources)Anemia; Translations: [Anemia, unspecified]Onset: 2022 53-47-6923XpmzhfgjRsgerakf mellitus without complication (20 sources)Hyperglycemia; Translations: [Hyperglycemia, unspecified]Onset: 279531-22-5296CufgqkqxPnrzx and electrolyte disorders (20 sources)Lactic acidosis; Translations: [Acidosis]Onset: 08-15-2018 Resolved: 038634-32-9534ZufxjgseHrvflojw of lower limb (20 sources)Closed fracture of second metatarsal bone; Translations: [Nondisplaced fracture of second metatarsal bone, left foot, initial encounter for closed fracture]Onset: 97-11-2636DzoscpvzLaxdbxdoz arthritis and osteomyelitis (except that caused by tuberculosis or sexually transmitted di sease) (20 sources)Suppurative arthritis; Translations: [Infective arthritis]Onset: 278488-54-5840MmqncbygQxsgakf and fatigue (20 sources)Fatigue; Translations: [Other fatigue]Onset: EpisodicMedical examination/evaluation (2 sources)Encounter for general adult medical examination without abnormal findings; Translations: [Encounterfor general adult medical examination without abnormal findings]Onset: 79-93-9417PotmipimCevp disorders (20 sources)Depressive disorder; Translations: [Major depressive disorder, single episode, unspecified]Onset: 07-20-2012 Resolved: 140126-37-7882ZdftjjtSttbkhnrp of unspecified nature or uncertain behavior (20 sources)Neoplasm of uncertain behavior of skin; Translations: [Neoplasm of uncertain behavior of skin]Onset: 824058-90-4390JevlagwtYsvwj [employer] infection and poliomyelitis (20 sources)Extradural and subdural abscess, unspecified; Translations: [Epidural abscess]Onset: 480538-34-6465NrbphgcvGvnxd connective tissue disease (1 source)Spasm; Translations: [Spasm of muscle]EpisodicOther connective tissue disease (20 sources)Pain in left foot; Translations: [Pain in left foot]Onset: 679422-23-1375LangzvduAwqgw connective tissue disease (20 sources)Pain in limb; Translations: [Pain in unspecified limb]Onset: 792756-02-2791FzvjuwgnQroll connective tissue disease (20 sources)Muscle pain; Translations: [Myalgia, unspecified site]Onset: 679890-69-0360JqdtzrysQtzzt connective tissue disease (20 sources)Bilateral trochanteric bursitis; Translations: [Trochanteric bursitis, right hip]Onset: 225489-64-7369QyzogepyLsjvn connective tissue disease (1 source)Pain in right foot; Translations: [Pain in right foot]Onset: 89-08-9892ShrtenybPkzzu diseases of kidney and ureters (1 source)Chronic renal insufficiency; Translations: [Disorder of kidney and ureter, unspecified]Onset: 154775-46-4469FdotmjtyZiubm nervous system disorders (20 sources)Metabolic encephalopathy; Translations: [Metabolic encephalopathy] Resolved: 268177-66-9440TfnusaqXjzax nervous system disorders (20 sources)Skin sensation disturbance; Translations: [Unspecified disturbances of skin sensation]Onset: 824095-87-0209TfoanbhdOwgnv non-epithelial cancer of skin (20 sources)Basal cell carcinoma of skin; Translations: [Basal cell carcinoma of skin, unspecified]Onset: 811840-06-5742OtntymrzOtnqm screening for suspected conditions (not mental disorders or infectious disease) (20 sources)Elevated C-reactive protein; Translations: [Elevated C-reactive protein (CRP)]Onset: 055732-29-5091FqbzakacQozitkqd codes; unclassified (20 sources)Insomnia; Translations: [Insomnia, unspecified]Onset: 06-04-2023 93-64-7238AtwwqjazMcpyshcjrkfn (1 source)Patient encounter jgegqj97-08-3002 Results Test NameValueInterpretationReference RangeFacilityBasic Metabolic Panelon 62-38-8407Kvhsb gap [Moles/Vol]8 mmol/LLow9 - 17 mmol/LBon [facility] Calcium [Mass/Vol]10.1 mg/dL8.6 - 10.4 mg/dLBon [facility] CenterChloride [Moles/Vol]100 mmol/L98 - 107 mmol/LBon [facility] CenterCO2 [Moles/Vol]29 mmol/L20 - 31 mmol/LBon [facility] CenterCreatinine [Mass/Vol]1.4 mg/dLHigh 0.5 - 0.9 mg/dLBon [facility] CenterEst, Glom Filt Tuzf00Eve- PINFBon [facility] CenterCommunson healthcare gray[facility] on above: These results are not [...] secretion. Glucose [Mass/Vol]87 mg/dL70 - 99 mg/dLBon [facility] CenterPotassium [Moles/Vol]4.4 mmol/L3.7 - 5.3 mmol/LBon [facility] CenterSodium [Moles/Vol] 137 mmol/L135 - 144 mmol/LBon [facility] CenterUrea nitrogen [Mass/Vol]19 mg/dL6 - 20 mg/dLBon [facility] CenterBasic Metabolic Profon 96-48-2440Yjhrs gap [Moles/Vol]8 mmol/LLow9-17[facility] HospitalComment on above:Performed By: #### BMP, CBC, SED, CRP ####[facility] [address] [place] [address] Lab Director: Emily George, MDCalcium [Mass/Vol] 10.1 mg/dLNormal8.6-10.4[facility] on above:Performed By: #### BMP, CBC, SED, CRP ####[facility] [address] [place] [address] Lab Director: SHER Mirzahloride [Moles/Vol]100 mmol/SXennjl32-450UtspvWVUMedicine Harrison Community Hospital on above: Performed By: #### BMP, CBC, SED, CRP ####[facility] [address] [place] [id number] Lab Director: Emily George MDCO2 [Moles/Vol]29 mmol/XIrcqlp74-93FbfrbWVUMedicine Harrison Community Hospital on above:Performed By: #### BMP, CBC, SED, CRP ####[facility] [address] [place] [address] Lab Director: SHER Mirzareatinine [Mass/Vol]1.4 mg/dLHigh0.5-0.9[facility] on above:Performed By: #### BMP, CBC, SED, CRP ####[facility] [address] [place] [address] Lab Director: Emily George MDGFR/1.73 sq M.predicted among non-blacks MDRD (S/P/Bld) [Vol rate/Area]47 mL/min/{1.73_m2} Low>60[facility] on above:Result Comment: These results [...] secretion.Performed By: #### BMP, CBC, SED, CRP ####[facility] [address] [place] [id number] Lab Director: Emily George MDGlucose [Mass/Vol]87 mg/dLNormal 70-99MToledo HospitalComment on above:Performed By: #### BMP, CBC, SED, CRP ####[facility] [address] [place] [address] Lab Director: ANNMARIE Mirzaotassium [Moles/Vol]4.4 mmol/L Normal3.7-5.3MToledo HospitalComment on above:Performed By: #### OTILIO, CBC, SED, CRP ####[facility] [address] [place] [address] Lab Director: MARIKA Mirzaodium [Moles/Vol]137 mmol/L Vqcebk501-354ReadpCleveland Clinic Union HospitalComment on above:Performed By: #### OTILIO, CBC, SED, CRP ####[facility] [address] [place] [address] Lab Director: Emily George MDUrea nitrogen [Mass/Vol]19 mg/dL Normal6-20[facility] HospitalComment on above:Performed By: #### BMP, CBC, SED, CRP ####[facility] [address] [place] [address] Lab Director: SHER Mirza-Reactive Proteinon 07-21-2025 CRP High sensitivity method [Mass/Vol]16.1 mg/LHigh0.0 - 5.0 mg/LBon [facility] CenterCR [Mass/Vol]16.1 mg/LHigh0.0-5.0[facility] HospitalCommunson healthcare gray[facility] hospital on above:Performed By: #### OTILIO, CBC, SED, CRP ####[facility] [address] [place] [address] Lab Director: Emily George MD CBCon 83-61-4112Xlhyipqocau distribution width (RBC) [Ratio]17.1 %High12.1 - 15.2 %Bon [facility] CenterHematocrit (Bld) [Volume fraction]34.3 %Low36.0 - 46.0 %Bon [facility] CenterHemoglobin (Bld) [Mass/Vol]11.0 g/dLLow12.0 - 16.0 g/dLBon [facility] CenterInterpretation and review of laboratory results AbnormalRiverside Regional Medical CenterH (RBC) [Entitic mass]28.2 pg26.0 - 34.0 pgRiverside Regional Medical CenterHC (RBC) [Mass/Vol]32.1 g/dL31.0 - 37.0 g/dLBon [facility] CenterV (RBC) [Entitic vol]87.9 fL80.0 - 100.0 fLSentara Obici HospitalPlatelet mean volume (Bld) [Entitic vol]11.4 fL6.0 - 12.0 fLSentara Obici HospitalPlatelets (Bld) [#/Vol]218 10*3/uLSentara Obici HospitalRBC (Bld) [#/Vol]3.90 10*6/uLLow4.00 - 5.20 m/[facility] Children's HospitalWBC other (Bld) [#/Vol]9.9Bon [facility] Medical CenterErythrocyte distribution width (RBC) [Ratio]17.1 %High12.1-15.2MercSan Jose Medical CenterComment on above:Performed By: #### BMP, CBC, SED, CRP ####[facility] [address] [place] [address] Lab Director: Emily George MDHematocrit (Bld) [Volume fraction]34.3 %Low36.0-46.0[facility] HospitalComment on above:Performed By: #### BMP, CBC, SED, CRP ####[facility] [address] [place] [id number] lab Director: Emily George MDHemoglobin (Bld) [Mass/Vol]11.0 g/dLLow12.0-16.0[facility] HospitalComment on above:Performed By: #### BMP, CBC, SED, CRP ####[facility] [address] [place] [address] Lab Director: VINCENT Mirza (RBC) [Entitic mass]28.2 igGdiose90.0-34.0[facility] HospitalComment on above:Performed By: #### BMP, CBC, SED, CRP ####[facility] [address] [place], [facility] Lab Director: VINCENT MirzaC (RBC) [Mass/Vol]32.1 g/kBGtzwfq12.0-37.0[facility] HospitalComment on above:Performed By: #### BMP, CBC, SED, CRP ####[facility] [address] [facility], [place] [address] Lab Director: BHARATH Mirza (RBC) [Entitic vol]87.9 mKXsqwxt04.0-100.0[facility] HospitalComment on above:Performed By: #### BMP, CBC, SED, CRP ####[facility] [address] [facility], [place] [address] Lab Director: Haja Mirza mean volume (Bld) [Entitic vol]11.4 fLNormal6.0-12.0 [facility] HospitalComment on above:Performed By: #### BMP, CBC, SED, CRP ####[facility] [address] [place], [phone] Director: Terrence Mirza (Bld) [#/Vol]218 10*3/uLNormal 140-450[facility] HospitalComment on above:Performed By: #### BMP, CBC, SED, CRP ####[facility] [address] [facility] Hospitalosbaldo RdVtllard, [facility] Lab Director: ELMO Mirza (Bld) [#/Vol]3.90 10*6/uLLow 4.00-5.20[facility] HospitalComment on above:Performed By: #### BMP, CBC, SED, CRP ####[facility] [address] [place] [address] Lab Director: MISHA Mirza (Bld) [#/Vol]9.9 10*3/uL Normal3.5-11.0[facility] HospitalCommunson healthcare grayling hospital on above:Performed By: #### BMP, CBC, SED, CRP ####[facility] [address] [place] [address] Lab Director: Emily George MDNo Panel Informationon 32-13-5103Ipwxwwdzanuqrn and review of laboratory resultsAbnoSiouxland Surgery CenterSedimentation Rateon 60-08-9930PUS Photometric method (Bld) [Velocity]42HighBon [facility] CenterInterpretation and review of laboratory resultsAbnormRiverside Doctors' Hospital WilliamsburgSedimentation Rate42 mm/HrHigh0-20[facility] HospitalCommunson healthcare gray[facility] hospital on above:Performed By: #### BMP, CBC, SED, CRP ####[facility] [address] [place] [address] Lab Director: Emily George MD Creatinine, Random Urineon 55-21-5987Ywhwgmhnjv (U) [Mass/Vol]52.4 mg/dL28.0 - 217.0 mg/dLBon [facility] CenterCommunson healthcare [facility] hospital on above:Reference range defined for 1st morning urineCreatinine,Random Uron 30-54-7900Ilbylhqned [Mass/Vol]52.4 mg/uQIfrbaz49.0-217.0[facility] HospitalCommunson healthcare gray[facility] hospital on above:Result Comment: Reference range defined for 1st morning urinePerformed By: #### RENP ####[facility] [address] [place] [address] lab Director: Emily George MD#### URCRE, PTHNCA, VD25, URTP ####[employer] [address] [place], [place] [id number] Lab Director: Placido Pierce MDNo Panel Informationon 86-56-9663Mwr [facility], [place] 72-63-7002Noqjmiekiy.intact [Mass/Vol]40.0 pg/mL17.9 - 58.6 pg/mLBon [facility], Tnxniy49.0 pg/gWHitojg84.9-58.6[facility]it Health NatchezComment on above:Performed By: #### RENP ####[facility] [address] [place] [address] lab Director: Emily George MD#### URCRE, PTHNCA, VD25, URTP ####[facility] [address] [place], [place] [id number] Lab Director: Placido Pierce, MDProtein, urine, randomon 56-58-2866[place] (U) [Mass/Vol]mg/dLmg/dLBon [facility] CenterCommunson healthcare [facility] hospital on above:No normal range established.Protein,Tot,[place] Uron 52-06-0626Dke Prot. Conc.<4NormalMercy Merit Health NatchezCommunson healthcare grayling hospital on above:Result Comment: No normal range established.Performed By: #### RENP ####[facility] [address] [place] [id number] Lab Director: Emily George MD#### URCRE, PTHNCA, VD25, URTP ####[employer] [address] [place], [place] 5601[address] Lab Director: Placido Pierce MDRenal Function Panelon 04-08-2181Arswprg [Mass/Vol]4.2 g/dL3.5 - 5.2 g/dLBon [facility] CenterAni gap [Moles/Vol]12 mmol/L9 - 17 mmol/LBon [facility] Calcium [Mass/Vol]9.2 mg/dL8.6 - 10.4 mg/dLBon [facility] CenterChloride [Moles/Vol]99 mmol/L98 - 107 mmol/LBon [facility] CenterCO2 [Moles/Vol]24 mmol/L20 - 31 mmol/LBon [facility] CenterCreatinine [Mass/Vol]1.3 mg/dLHigh 0.5 - 0.9 mg/dLBon [facility] CenterEst, Glom Filt Sviy03Eis- PINFBon [facility] CenterComment on above: These results are not intended [...] that affects renal tubular secretion. Glucose [Mass/Vol]110 mg/vPXuhx25 - 99 mg/dLBon [facility] Interpretation and review of laboratory resultsAbnormalSentara Obici Hospital Phosphate [Mass/Vol]3.9 mg/dL2.6 - 4.5 mg/dLBon [facility] CenterPotassium [Moles/Vol]4.5 mmol/L3.7 - 5.3 mmol/LBon [facility] CenterSodium [Moles/Vol] 135 mmol/L135 - 144 mmol/LBon [facility] CenterUrea nitrogen [Mass/Vol]23 mg/dLHigh6 - 20 mg/dLBon [facility] CenterAlbumin [Mass/Vol]4.2 g/dLNormal3.5-5.2[facility] Health NatchezComment on above:Performed By: #### RENP ####[facility] [address] [place] [address] Lab Director: Emily George MD#### URCRE, PTHNCA, VD25, URTP ####[facility] [address] [place] [address] Lab Director: Placido Pierce MDAnion gap [Moles/Vol]12 mmol/LNormal9-17[facility] Comment on above:Performed By: #### RENP ####[facility] [address] [place] [address] Lab Director: Emily George MD#### URCRE, PTHNCA, VD25, URTP ####[facility] [address] [place] [address] [id number] Lab Director: Placido Pierce MDCalcium [Mass/Vol]9.2 mg/dL Normal8.6-10.4[facility] HospitalComment on above:Performed By: #### RENP ####[facility] Jia[address]126 [place], [place] [phone] Director: Emily George MD#### URCRE, PTHNCA, VD25, URTP ####[address] [address] Lab Director: SHER Tavareshloride [Moles/Vol]99 mmol/DDzxkjf90-687BrmroCleveland Clinic Union HospitalComment on above:Performed By: #### RENP ####[facility] Ekm7155 [place] [address] Lab Director: Emily George MD#### URCRE, PTHNCA, VD25, URTP ####[address] [address] Lab Director: Placido Pierce MDCO2 [Moles/Vol]24 mmol/LNormal 20-31Cleveland Clinic Union HospitalComment on above:Performed By: #### RENP ####[facility] Kcu2271 [place] [address] Lab Director: Emily George MD#### URCRE, PTHNCA, VD25, URTP ####[facility] [address]trg[address] [place] [address] [place] 4481208 Lab Director: SHER Tavaresreatinine [Mass/Vol]1.3 mg/dLHigh0.5-0.9[facility] on above:Performed By: #### RENP ####[facility] Ppm3920 [place], [place] 8371290 Lab Director: Emily George MD#### URCRE, PTHNCA, VD25, URTP ####[address] [place], [place] 0163408 Lab Director: Placido Pierce MDGFR/1.73 sq M.predicted among non-blacks MDRD (S/P/Bld) [Vol rate/Area]51 mL/min/{1.73_m2}Low>60C[facility] Clinic Union HospitalComment on above:Result Comment: These results are [...] affects renal tubular secretion.Performed By: #### RENP ####[facility] Xup8474 [place], [place] 9635590 Lab Director: Emily George MD#### URCRE, PTHNCA, VD25, URTP ####[facility] Mguuxjnjyuzt2243 [place], [place] 9769108 Lab Director: Placido Pierce MDGlucose [Mass/Vol]110 mg/rQFjld93-22RkonzFirelands Regional Medical Center on above:Performed By: #### RENP ####[facility] Ybt1671 [place], [place] 0831490 Lab Director: Emily George MD#### URCRE, PTHNCA, VD25, URTP ####[address] [place] [address] Lab Director: ANNMARIE Tavareshosphojordan Inorg.3.9 mg/dL Normal2.6-4.5C[facility] Clinic Union HospitalComment on above:Performed By: #### RENP ####[facility] Hlh5153 [place] [phone] Director: Emily George MD#### URCRE, PTHNCA, VD25, URTP ####[facility] Svvkxjewwisd4448 [place] [address] Lab Director: ANNMARIE Tavaresotassium [Moles/Vol]4.5 mmol/LNormal3.7-5.3MToledo Hospital Comment on above:Performed By: #### RENP ####[facility] [address] [place] 3645190 Lab Director: Emily George MD#### URCRE, PTHNCA, VD25, URTP ####[address] [address] Lab Director: MARIKA Tavaresodium [Moles/Vol]135 mmol/L Twygep794-421KtbizCleveland Clinic Union HospitalComment on above:Performed By: #### RENP ####[facility] Jan8616 [place] [phone] Director: Emily George MD#### URCRE, PTHNCA, VD25, URTP ####[address] [place] [address] Lab Director: Placido Pierce MDUrea nitrogen [Mass/Vol]23 mg/dLHigh6-20C[facility] Clinic Union HospitalComment on above:Performed By: #### RENP ####[facility] Kqq4512 [place] [address] Lab Director: Emily George MD#### URCRE, PTHNCA, VD25, URTP ####[employer] Jphlsanbwftv3263 [place], [place] 2032708 Lab Director: Placido Pierce MDVitamin D 25 Hydroxyon [id number]-oyyfcomeiipqqv D3 [Mass/Vol]29.2 ng/mLLow30.0 - 100.0 ng/mLSentara Obici HospitalComment on above: Reference Range: Vitamin D status Range Deficiency <20 ng/mL Mild Deficiency 20-30 ng/mL Sufficiency 30-100 ng/mL Toxicity >100 ng/mL Interpretation and review of laboratory resultsAbnormalBon Coteau Des Prairies HospitalVitamin D 25 OHon 56-24-4985Nboizap D 25 OH29.2 ng/mLLow 30.0-100.0C[facility] Clinic Union HospitalCommunson healthcare grayling hospital on above:Result Comment: Reference Range: Vitamin D status Range Deficiency <20 ng/mL Mild Deficiency 20-30 ng/mL Sufficiency 30-100 ng/mL Toxicity >100 ng/mLPerformed By: #### RENP ####[facility] [address] [place], [place] 2386690 Lab Director: Emily George MD#### URCRE, PTHNCA, VD25, URTP ####[employer] Fjzyxmfdacsq8026 [place], [place] 6154508 Lab Director: ARPAN Tavares CERVICAL SPINE COMPLETE 4- 5 VIEWSon [id number] CERVICAL SPINE COMPLETE 4-5 VIEWSEXAMINATION: XR CERVICAL [...] Gregorio J Lola, DONormalNot AvailableBasic Metabolic Panelon 32-37-9613Uvkqx gap [Moles/Vol]12 mmol/L9 - 17 mmol/LBon [facility] CenterCalcium [Mass/Vol]9.3 mg/dL8.6 - 10.4 mg/dLBon [facility] Chloride [Moles/Vol]104 mmol/L98 - 107 mmol/LBon [facility] Medical CenterCO2 [Moles/Vol]22 mmol/L20 - 31 mmol/LBon [facility] CenterCreatinine [Mass/Vol] 1.3 mg/dLHigh0.5 - 0.9 mg/dLBon [facility] Medical CenterEst, Glom Filt Klak21Mrv- PINFBon [facility] Medical CenterComment on above: These results are not intended [...] that affects renal tubular secretion. Glucose [Mass/Vol]131 mg/kKPixj62 - 99 mg/dLBon [facility] CenterPotassium [Moles/Vol]4.4 mmol/L3.7 - 5.3 mmol/LBon [facility] Medical CenterSodium [Moles/Vol] 138 mmol/L135 - 144 mmol/LBon [facility] CenterUrea nitrogen [Mass/Vol]17 mg/dL6 - 20 mg/dLBon [facility] Medical CenterBabaptist health [place] Metabolic Profon 85-96-8650Yacbv gap [Moles/Vol]12 mmol/LNormal9-17Cleveland Clinic Union HospitalComment on above: Performed By: #### MORPHX, CRP, BMP, CBC, SED ####[facility] Uwe1771 [place] [address] lab Director: Emily George MD Calcium [Mass/Vol]9.3 mg/dLNormal8.6-10.4C[facility] Clinic Union HospitalComment on above: Performed By: #### MORPHX, CRP, BMP, CBC, SED ####[facility] Swb8975 [place] [address] Lab Director: Emily George MD Chloride [Moles/Vol]104 mmol/YMxjlau03-522PxjrgWVUMedicine Harrison Community Hospital on above:Performed By: #### MORPHX, CRP, BMP, CBC, SED ####[facility] Pth2464 [place] [address] Lab Director: SHER MirzaO2 [Moles/Vol]22 mmol/QLpjzsl97-74TkxxrCleveland Clinic Union HospitalCommunson healthcare grayling hospital on above:Performed By: #### MORPHX, CRP, BMP, CBC, SED ####[facility] Qmd7458 [place] [address] Lab Director: SHER Mirzareatinine [Mass/Vol]1.3 mg/dLHigh0.5-0.9C[facility] Clinic Union HospitalCommunson healthcare grayling hospital on above:Performed By: #### MORPHX, CRP, BMP, CBC, SED ####[facility] Waj2470 [place] [address] Lab Director: Emily George MDGFR/1.73 sq M.predicted among non-blacks MDRD (S/P/Bld) [Vol rate/Area]52 mL/min/{1.73_m2}Low>60[facility] HospitalCommunson healthcare grayling hospital on above:Result Comment: These results are [...] By: #### MORPHX, CRP, BMP, CBC, SED ####[facility] Qpf5029 [place] [address] Lab Director: Emily George MDGlucose [Mass/Vol]131 mg/dLHigh 70-99MToledo HospitalComment on above:Performed By: #### MORPHX, CRP, BMP, CBC, SED ####[facility] Otw3305 [place] [address] Lab Director: ANNMARIE Mirzaotassium [Moles/Vol]4.4 mmol/L Normal3.7-5.3MToledo HospitalComment on above:Performed By: #### MORPHX, CRP, BMP, CBC, SED ####[facility] Vcn7069 [place] [address] Lab Director: MARIKA Mirzaodium [Moles/Vol] 138 mmol/NLueili117-249BvvuaCleveland Clinic Union HospitalComment on above:Performed By: #### MORPHX, CRP, BMP, CBC, SED ####[facility] Cco3902 [place] [address] Lab Director: Emily George MDUrea nitrogen [Mass/Vol]17 mg/dLNormal6-20C[facility] Clinic Union HospitalComment on above:Performed By: #### MORPHX, CRP, BMP, CBC, SED ####[facility] [address] [place] 3645190 Lab Director: SHER Mirza-Reactive Proteinon 14-86-5156RTD High sensitivity method [Mass/Vol]6.2 mg/LHigh0.0 - 5.0 mg/LBon SecAultman Orrville HospitalCR [Mass/Vol]6.2 mg/LHigh0.0-5.0C[facility] Clinic Union HospitalComment on above:Performed By: #### LIPR, LDLDIR, GLYHGB #### [facility] [employer] [address] [place] [address] Engineer: Placido Pierce MD #### CP #### [facility] Lab [address] [place] [id number] Engineer: SHER Mirzamateo 03-05-6444Vvtbezdjmbn distribution width (RBC) [Ratio]19.4 %High12.1 - 15.2 %[facility] Obici HospitalHematocrit (Bld) [Volume fraction]32.3 %Low36.0 - 46.0 %[facility] HospitalHemoglobin (Bld) [Mass/Vol]9.9 g/dLLow12.0 - 16.0 g/dLBon [facility] Medical CenterInterpretation and review of laboratory resultsAbnormalRiverside Regional Medical CenterH (RBC) [Entitic mass]28.0 pg26.0 - 34.0 pgRiverside Regional Medical CenterHC (RBC) [Mass/Vol]30.7 g/dL Low31.0 - 37.0 g/dLBon [facility] Medical CenterV (RBC) [Entitic vol]91.2 fL80.0 - 100.0 fLSentara Obici HospitalPlatelet mean volume (Bld) [Entitic vol]11.7 fL 6.0 - 12.0 fLSentara Obici HospitalPlatelets (Bld) [#/Vol]154 10*3/uLSentara Obici HospitalRBC (Bld) [#/Vol]3.54 10*6/uLLow4.00 - 5.20 m/uLSentara Obici HospitalWBC other (Bld) [#/Vol]3.8Bon [facility] Medical CenterErythrocyte distribution width (RBC) [Ratio]19.4 %High12.1-15.2Mer[facility] Merit Health NatchezComment on above:Performed By: #### MORPHX, CRP, BMP, CBC, SED ####[facility] Dhm1434 [place], [place] [phone] Director: Emily George MDHematocrit (Bld) [Volume fraction]32.3 %Low 36.0-46.0C[facility] Clinic Union HospitalComment on above:Performed By: #### MORPHX, CRP, BMP, CBC, SED ####[facility] [address] [place] 3645190 lab Director: Emily George MDHemoglobin (Bld) [Mass/Vol]9.9 g/dLLow12.0-16.0C[facility] Union HospitalComment on above:Performed By: #### MORPHX, CRP, BMP, CBC, SED ####[facility] Uzj3596 [place] [address] Lab Director: ELISABET MirzaCH (RBC) [Entitic mass]28.0 xjBzserx05.0-34.0C[facility] Union HospitalComment on above:Performed By: #### MORPHX, CRP, BMP, CBC, SED ####[facility] Hev2783 [place], [place] 8289990 Lab Director: VINCENT MirzaC (RBC) [Mass/Vol]30.7 g/dLLow31.0-37.0C[facility] Union HospitalComment on above:Performed By: #### MORPHX, CRP, BMP, CBC, SED ####[facility] Ysc[address] [place] [address] Lab Director: ELISABET MirzaCV (RBC) [Entitic vol]91.2 pNVutjny38.0-100.0[facility] on above:Performed By: #### MORPHX, CRP, BMP, CBC, SED ####[facility] Rvr1730 [place] [address] Lab Director: Haja Mirza mean volume (Bld) [Entitic vol]11.7 fLNormal6.0-12.0C[facility] Clinic Union HospitalComment on above:Performed By: #### MORPHX, CRP, BMP, CBC, SED ####[facility] Yav0788 [place] [phone] Director: Terrence Mirza (Bld) [#/Vol]154 10*3/uLNormal 140-450Mercy Watkins HospitalComment on above:Performed By: #### MORPHX, CRP, BMP, CBC, SED ####[facility] Vym8277 [facility] Hospitalosbaldo [place], [place] 965[address]90 Lab Director: LASHAY MirzaBC (Bld) [#/Vol]3.54 10*6/uLLow 4.00-5.20[facility] HospitalCommunson healthcare grayling hospital on above:Performed By: #### MORPHX, CRP, BMP, CBC, SED ####[facility] [address] [place], [place] 7220390 Lab Director: LLOYD Mirza (Bld) [#/Vol]3.8 10*3/uL Normal3.5-11.0C[facility] Clinic Union HospitalComment on above:Performed By: #### MORPHX, CRP, BMP, CBC, SED ####[facility] T[address] [place] [address] Lab Director: ELISABET MirzaORPHOLOGY CHECKon 03-42-1009Nitxsgzgkf Rehan (Bld) [Interp]MODERATE ANISOCYTOSISRiverside Doctors' Hospital WilliamsburgMorphology Checkon 13-35-2690Dsgnsiazrh Rehan (Bld) [Interp]MODERATENormalCleveland Clinic Union HospitalComment on above:Result Comment: ANISOCYTOSISPerformed By: #### LIPR, LDLDIR, GLYHGB #### [facility] [address] [place] [address] Engineer: Placido Pierce MD #### CP #### [facility] Lab [address] [place] [address] Engineer: Kiara Mirza Panel Informationon 57-72-6604Xhcaztobydlizy and review of laboratory resultsAbnormalBon [facility] Medical CenterSedimentation Rateon 81-85-3380Bogdbiofmrwzv Rate19 mm/HrNormal0-20 [facility] HospitalComment on above:Performed By: #### MORPHX, CRP, BMP, CBC, SED ####[facility] Fkt6403 [place] [address] Lab Director: Emily George MDESMeka Photometric method (Bld) [Velocity]19[facility] CenterBon [facility] Metabolic Prof on 99-86-6530Jozdpql [Mass/Vol]4.2 g/dLNormal3.5-5.2MToledo Hospital Comment on above:Performed By: #### LIPR, GLYHGB ####[facility] [place], [place] [phone] Director: Placido Pierce MD#### CP ####[facility] Cqg0560 [place], [place] [phone] Director: Emily George MD#### INSU ####[address] [phone] Director: Placido Pierce, [facility] Qqv5504 [place] [address] Lab Director: Emily George MDAlbumin/Glob Ratio1.0Fvjajr6.0-2.5C[facility] Clinic Union HospitalComment on above:Performed By: #### LIPR, GLYHGB ####[facility]2222 [place] [address] Lab Director: Placido Pierce MD#### CP ####[facility] Uko3781 [place], [place] [phone])[phone] Director: Emily George MD#### INSU ####[address] [phone] Director: Placido Pierce, [facility] Qdp7028 [place] [address] Lab Director: Manish Mirza Depk231 U/NEkeq01-963UjhkuCleveland Clinic Union HospitalComment on above:Performed By: #### LIPMeka GLYHGB ####[facility] Pwexaiqtmbak[address] [place] [address] Lab Director: Placido Pierce MD#### CP ####[facility] Xil9902 [place], [place] [phone] Director: Emily George MD#### INSU ####[address] [phone])[phone] Director: Placido Pierce, [facility] Mih0670 [place], [place] 25635419)[phone] Director: Emily George MDALT [Catalytic activity/Vol]23 U/LNormal5-33[facility] Union HospitalComment on above:Performed By: #### KINDRA GLYHGB ####[facility] Dfjhnohghjvr4087 [place], [place] [phone])[phone] Director: Placido Pierce MD#### CP ####[facility] Xmd3166 [place] [address] Lab Director: Emily George MD#### INSU ####[address] [phone] Director: Placido Pierce, [facility] Jke2061 [place], [place] [phone])[phone] Director: Myles Mirza gap [Moles/Vol]14 mmol/L Normal9-17[facility] Union HospitalComment on above:Performed By: #### LIPR, GLYHGB ####[facility] Szkcxedbwfjj7019 [place] [address] Lab Director: Placido Pierce MD#### CP ####[facility] Hcl5376 [place], [place] [phone])[phone] Director: Emily George MD#### INSU ####[address] [place], [place] [phone])[phone] Director: Placido Pierce, [facility] Zxc[address] [place], [place] 61033419)[phone] Director: Emily George MDAST [Catalytic activity/Vol]22 U/LNormal<32MerVA New York Harbor Healthcare SystemComment on above:Performed By: #### LIPR, GLYHGB ####[address] [place], [place] [phone])[phone] Director: Placido Pierce MD#### CP ####[facility] Ugl4799 [place], [place] [phone])[phone] Director: Emily George MD#### INSU ####[address] [phone] Director: Placido Pierce, [facility] Vzd1010 [place] [address] Lab Director: Emily George MDBilirubin [Mass/Vol]0.5 mg/dLNormal0.3-1.2MToledo HospitalComment on above:Performed By: #### LIPR, GLYHGB ####[address] [place], [place] [phone])[phone] Director: Placido Pierce MD#### CP ####[facility] Swb9948 [place], [place] [phone])[phone] Director: Emily George MD#### INSU ####[address] [phone] Director: Placido Pierce, [facility] Jze2413 [place], [place] 74524419)[phone] Director: Emily George MD Calcium [Mass/Vol]9.4 mg/dLNormal8.6-10.4[facility] Union HospitalComment on above: Performed By: #### KINDRA GLYHGB ####[facility] Clsokxhcwbah6566 [place], [place] [phone])[phone] Director: Placido Pierce MD#### CP ####[facility] Fqf7103 [place], [place] [phone])[phone] Director: Emily George MD#### INSU ####[address] [place], [place] [phone] Director: Placido Pierce, [facility] Wxv8521 [place], [place] [phone])[phone] Director: Emily George MD Chloride [Moles/Vol]99 mmol/NRnrsnm90-720RncflCleveland Clinic Union HospitalComment on above: Performed By: #### KINDRA GLYHGB ####[facility] Jskqslhpwdqk1543 [place], [place] [phone])[phone] Director: Placido Pierce MD#### CP ####[facility] Epg3803 [place], [place] [phone])[phone] Director: Emily George MD#### INSU ####[facility]2222 [place], [place] [phone])[phone] Director: Placido Pierce, [facility] Vim4191 [place], [place] 13075419)[phone] Director: Emily George MD CO2 [Moles/Vol]26 mmol/XDzehnd55-02IxafxCleveland Clinic Union HospitalComment on above: Performed By: #### LIPR, GLYHGB ####[facility] Igfhjcppnqmj2148 [place], [place] [phone])[phone] Director: Placido Pierce MD#### CP ####[facility] Vlz5092 [place] [address] Lab Director: Emily George MD#### INSU ####[address] [address] Lab Director: Placido Pierce, [facility] Lse2436 [place] [address] Lab Director: Emily George MD Creatinine [Mass/Vol]1.4 mg/dLHigh0.5-0.9[facility] Union HospitalComment on above: Performed By: #### LIPR, GLYHGB ####[facility] [address] [place] [address] Lab Director: Placido Pierce MD#### CP ####[facility] [address] [place] [address] Lab Director: Emily George MD#### INSU ####[address] [address] Lab Director: Placido Pierce, [facility] Jsf[address] [place] [address] Lab Director: Emily George MD GFR/1.73 sq M.predicted among non-blacks MDRD (S/P/Bld) [Vol rate/Area]47 mL/min/{1.73_m2}Low>60[facility] Union HospitalComment on above:Result Comment: These results are [...] tubular secretion.Performed By: #### LIPR, GLYHGB ####[facility] [address]jpsfquxll[address] [place] [address] Lab Director: Placido Pierce MD#### CP ####[facility] Qmd8808 [place] [address] Lab Director: Emily George MD#### INSU ####[facility] [place] [address] Lab Director: Placido Pierce, [facility] Gli4545 [place] [address] Lab Director: Emily George MDGlucose [Mass/Vol]114 mg/dLHigh 70-99MToledo HospitalComment on above:Performed By: #### LIPR, GLYHGB ####[facility]2222 [place] [address] Lab Director: Placido Pierce MD#### CP ####[facility] Tru6153 [place] [address] Lab Director: Emily George MD#### INSU ####[address] [address] Lab Director: Placido Pierce, [facility] Cop8482 [place] [address] Lab Director: ANNMARIE Mirzaotassium [Moles/Vol]4.1 mmol/L Normal3.7-5.3MToledo HospitalComment on above:Performed By: #### LIPR, GLYHGB ####[facility] Xjucvfkmeany1185 [place] [address] Lab Director: Placido Pierce MD#### CP ####[facility] Vna7313 [place] [address] Lab Director: Emily George MD#### INSU ####[facility]2222 [place] [address] Lab Director: Placido Pierce, [facility] Fgc[address] [place] [address], [place] [address] Lab Director: ANNMARIE Mirzarotein [Mass/Vol] 7.2 g/dLNormal6.4-8.3MToledo HospitalComment on above:Performed By: #### LIPR, GLYHGB ####[facility] Qyqfckccbgmo7491 [place] [address] Lab Director: Placido Pierce MD#### CP ####[facility] Pei9543 [place] [address] Lab Director: Emily George MD#### INSU ####[facility] Jzwsccxubyfj9774 [place] [address] Lab Director: Placido Pierce, [facility] Qgh3391 [place] [address] Lab Director: Emily George MD Sodium [Moles/Vol]139 mmol/COgarrt775-262DfepaCleveland Clinic Union HospitalComment on above: Performed By: #### LIPR, GLYHGB ####[facility] Buqpkiwxrvdv4676 [place] [address] Lab Director: Placido Pierce MD#### CP ####[facility] [address] [place] [address] Lab Director: Emily George MD#### INSU ####[facility] Sgkqwkacdkju5087 [place] [address] Lab Director: Placido Pierce, [facility] Mqm5085 [place] [address] Lab Director: Emily George MD Urea nitrogen [Mass/Vol]18 mg/dLNormal6-20[facility] HospitalComment on above:Performed By: #### LIPR, GLYHGB ####[facility] Lzrxiaajisxl2476 [place] [address] Lab Director: Placido Pierce MD#### CP ####[facility] [address] [place], [place] [phone] Director: Emily George MD#### INSU ####[facility] Djpghnpmdrqi8177 [place] [address] Lab Director: Placido Pierce [facility] Ayw[address] [place], [place] 4072690 Lab Director: Emily George [facility] WATONGAomprehensive Metabolic Panelon 83-90-4450Tpkysxf [Mass/Vol]4.2 g/dL3.5 - 5.2 g/dLBon [facility] HealthAlbumin/Globulin [Mass ratio]1.4 {ratio}1.0 - 2.5Bon [facility] HealthALP [Catalytic activity/Vol]109 U/LHigh 35 - 104 U/LBon [facility] HealthALT [Catalytic activity/Vol]23 U/L5 - 33 U/L Bon [facility] Medical CenterAnion gap [Moles/Vol]14 mmol/L9 - 17 mmol/LBon [facility] HealthAST [Catalytic activity/Vol]22 U/LNINF - 32 U/LBon [facility] Medical CenterBilirubin [Mass/Vol]0.5 mg/dL0.3 - 1.2 mg/dLBon [facility] Calcium [Mass/Vol]9.4 mg/dL8.6 - 10.4 mg/dLBon [facility] HealthChloride [Moles/Vol]99 mmol/L98 - 107 mmol/LBon [facility] HealthCO2 [Moles/Vol]26 mmol/L20 - 31 mmol/LBon [facility] CenterCreatinine [Mass/Vol]1.4 mg/dLHigh 0.5 - 0.9 mg/dLBon [facility] HealthEst, Glom Filt Ovdc59Sgu- PINFBon [facility] Medical CenterComment on above: These results are not intended [...] that affects renal tubular secretion. Glucose [Mass/Vol]114 mg/aCOebt83 - 99 mg/dLBon [facility] Interpretation and review of laboratory resultsAbnoBath Community Hospital Potassium [Moles/Vol]4.1 mmol/L3.7 - 5.3 mmol/LBon [facility] CenterProtein [Mass/Vol]7.2 g/dL6.4 - 8.3 g/dLBon [facility] Medical CenterSodium [Moles/Vol]139 mmol/L135 - 144 mmol/LBon [facility] Medical CenterUrea nitrogen [Mass/Vol]18 mg/dL6 - 20 mg/dLBon [facility] CenterHemoglobin A1Con 81-13-8147Xucriqs glucose Estimated from glycated hemoglobin (Bld) [Mass/Vol]123 mg/dLBon [facility] Medical CenterComment on above:The ADA and AACC recommend providing the estimated average glucose result to permit better patient understanding of their HBA1c result. HbA1c (Bld) [Mass fraction]5.9 %4.0 - 6.0 %Bon [facility] Medical CenterGlucose [Mass/Vol]123 mg/dLNoThe [facility] Hospital on above:Result Comment: The ADA and AACC recommend providing the estimated average glucose result to permit better patient understanding of their HBA1c result.Performed By: #### LIPR, GLYHGB ####[facility] Npfsourisgmq9741 [place] [address] Lab Director: Placido Pierce MD#### CP ####[facility] Eqq7317 [place] [address] Lab Director: Emily George MD#### INSU ####[address] [address] Lab Director: Plcaido Pierce [facility] Yjv3022 [facility] Orth[facility] Hospitalosbaldo [place], [place] 1362290 Lab Director: Emily George MD HbA1c (Bld) [Mass fraction]5.9 %Normal4.0-6.0[facility] Clinic Union HospitalComment on above:Performed By: #### LIPR, GLYHGB ####[facility] Gqvyktpckeag7818 [place], [place] [phone])[phone] Director: Placido Pierce MD#### CP ####[facility] [facility] Rej[address] [place], [place] [address])[phone] Director: Emily George MD#### INSU ####[facility] Wn[address] [place] [address] [phone] Director: Placido Pierce, [place], [place] [address])[phone] Director: Emily George MDInsulinon 45-74-9971Pvwegqz20.0 mU/LNMorrow County Hospital Comment on above:Performed By: #### KINDRA, GLYHGB ####[facility] Senrqmiqruwa[address] [place], [place] [phone] Director: Placido Pierce MD#### CP ####[facility] Onn[address] [place], [place] [address])[phone] Director: Emily George MD#### INSU ####[address] [phone] Director: Placido Pierce, [facility] [address] [place], [place] [address])[phone] Director: Richard Mirza RangeNormMcKitrick HospitalComment on above: Result Comment: Fastin.6-24.9 30 min: 20-112 60 min: 29-88 90 min: 26-84 120 min: 22-79Performed By: #### LIPR, GLYHGB ####[facility] Wmrmsdkocitz4719 [place], [place] [phone] Director: Placido Pierce MD#### CP ####[facility] Mny[address] [place] [phone] Director: Emily George MD#### INSU ####[facility] Ejbeeydgucrq[address]17 [place] [address] Lab Director: Placido Pierce, [facility] Pax[address]72 [place] [address] Lab Director: Emily George [facility] WATONGAollection Info.FASTINGNormalCleveland Clinic Union HospitalComment on above:Performed By: #### LIPR, GLYHGB ####[facility] Rkavfpgsshdj9347 [place] [address] Lab Director: Placido Pierce MD#### CP ####[facility] Kpf2046 [place] [phone] Director: Emily George MD#### INSU ####[facility] Egdsoighmprr8616 [place] [address] Lab Director: Placido Pierce, [facility] Jxt8019 [place] [address] Lab Director: Emily George MDInsulin, Totalon 59-98-0890Ymbbsic05.0 mU/LBon [facility] Medical CenterInsulin CommentRappahannock General HospitalInsulin Reference Range:Sentara Obici HospitalComment on above:Fastin.6-24.9 30 min: 20-112 60 min: 29-88 90 min: 26-84 120 min: 22-79 Lipid Panelon 85-77-2362Zqacapqcays [Mass/Vol]158 mg/dL0 - 199 mg/dLBon [facility] Medical CenterComment on above: Cholesterol Guidelines: <200 Desirable 200-240 Borderline >240 Undesirable Cholesterol in HDL [Mass/Vol]31 mg/dLLow40 - PINF mg/dLBon [facility] Comment on above: HDL Guidelines: <40 Undesirable 40-59 Borderline >59 Desirable Cholesterol in LDL [Mass/Vol]59 mg/dL0 - 100 mg/dLBon [facility] Comment on above: LDL Guidelines: <100 Desirable 100-129 Near to/above Desirable 130-159 Borderline >159 Undesirable Direct (measured) LDL and calculated LDL are not interchangeable tests. Cholesterol in VLDL [Mass/Vol]68 mg/dLHigh1 - 30 mg/dLBon [facility] Cholesterol.total/Cholesterol in HDL [Mass ratio]5.1 {ratio}HighNINF - 5.0Sentara Obici HospitalInterpretation and review of laboratory resultsAbnormalSentara Obici HospitalTriglyceride [Mass/Vol]341 mg/dLHighNINF - 150 mg/dLBon [facility] CenterComment on above: Triglyceride Guidelines: <150 Desirable 150-199 Borderline 200-499 High >499 Very high Based on AHA Guidelines for fasting triglyceride, July 2012. Lipid Profileon 44-71-6738Azirlbdviam [Mass/Vol]158 mg/dLNormal0-199Cleveland Clinic Union HospitalComment on above:Result Comment: Cholesterol Guidelines: <200 Desirable 200-240 Borderline >240 UndesirablePerformed By: #### LIPR, GLYHGB ####[facility] [address]ym[address]wpgmdn[address] [place] [address] Lab Director: Placido Pierce MD#### CP ####[facility] Dgf5099 [place] [phone] Director: Emily George MD#### INSU ####[facility] Vksujqymmhle[address]109 [place] [address] Lab Director: Placido Pierce [facility] Zki5231 [place] [address] Lab Director: SHER Mirzaholesterol in HDL [Mass/Vol]31 mg/dLLow>40Cleveland Clinic Union HospitalCommunson healthcare grayling hospital on above:Result Comment: HDL Guidelines: <40 Undesirable 40-59 Borderline >59 DesirablePerformed By: #### LIPR, GLYHGB ####[facility] Ypbork[address]oslh[address]239 [place] [address] Lab Director: Placido Pierce MD#### CP ####[facility] Vxx2831 [place] [phone] Director: Emily George MD#### INSU ####[facility] [place] [address] [phone] Director: Placido Pierce, [facility] Fma5126 [place] [address] Lab Director: SHER Mirzaholesterol in LDL [Mass/Vol]59 mg/dLNormal0-100C[facility] Clinic Union HospitalComment on above:Result Comment: LDL Guidelines: <100 Desirable 100-129 Near to/above Desirable 130-159 Borderline >159 Undesirable Direct (measured) LDL and calculated LDL are not interchangeable tests.Performed By: #### LIPR GLYHGB ####[facility] [place] [address] Lab Director: Placido Pierce MD#### CP ####[facility] Twh2631 [place] [address] Lab Director: Emily George MD#### INSU ####[address] [address] Lab Director: Placido Pierce, [facility] Nca7002 [place] [address] Lab Director: Emily George MD Cholesterol in VLDL [Mass/Vol]68 mg/dLHigh1-30C[facility] Clinic Union HospitalComment on above:Performed By: #### LIPR, GLYHGB ####[facility] Klzkzuzfzxfj4537 [place], [place] [phone] Director: Placido Pierce MD#### CP ####[facility] Uqu7441 [place] [phone] Director: Emily George MD#### INSU ####[facility] Llxzrraxagru2538 [place], [place] [phone] Director: Placido Pierce, [facility] Gyl2273 [place] [address] Lab Director: Nelida Mirza.total/Cholesterol in HDL [Mass ratio]5.1 {ratio} High<5.0C[facility] Clinic Union HospitalComment on above:Performed By: #### LIPR, GLYHGB ####[facility] Hdkybxmyrwdq[address] [place], [place] [phone] Director: Placido Pierce MD#### CP ####[facility] Qqw5955 [place], [place] [phone] Director: Emily George MD#### INSU ####[address] [phone] Director: Placido Pierce, [facility] [address] [place] [address] Lab Director: Emily George MDTriglyceride [Mass/Vol]341 mg/dL High<150C[facility] Clinic Union HospitalComment on above:Result Comment: Triglyceride Guidelines: <150 Desirable 150-199 Borderline 200-499 High >499 Very high Based on AHA Guidelines for fasting triglyceride, July 2012.Performed By: #### LIPMeka, GLYHGB ####[facility] [address]ib[address]ikuowm[address] [place] [address] Lab Director: Placido Pierce MD#### CP ####[facility] Pqp[address]686 [place] [address] Lab Director: Emily George MD#### INSU ####[facility] Qtxalegdique7341 [place], [place] [phone] Director: Placido Pierce [facility] Mav3684 [place] [address] [facility] Director: Emily George MD No Panel Informationon [id number] Virginia Beach General Hospital Foot - right WO and W contrast [...] atrophic change likely related to chronic neuropathy. [facility] Robin Persaud MD - 04/12/2025 EXAM: MRI [...] again superimposed infection be difficult to include. [facility] Foot - right WO and W contrast IVOrdered By: Robin Mcarthur on 77-49-1817Xzv [facility] Work Phone: MRI FOOT RIGHT W WO CONTRASTon [id number]: MRI FOOT RIGHT W WO CONTRAST COMPARISON: [...] Robin Mcarthur MD 04/12/25 Final result [facility] FOOT RIGHT W WO CONTRASTEXAM: MRI FOOT [...] by: Robin Mcarthur MD 04/12/25 Final resultNormalMercy Merit Health NatchezRadiology Study observation (narrative) [facility] HealthcareMRI FOOT RIGHT W WO CONTRASTOrdered By: Radiologist Radiology on 37-30-6364PXUA BBE Work Phone: bUN & Creatinineon 72-71-0037Klcjpcowfo [Mass/Vol]1.3 mg/dLHigh0.5 - 0.9 mg/dLBon [facility] CenterEst, Glom Filt Upeq20Xax- PINF Bon [facility] on above: These results are not intended [...] tubular secretion. Interpretation and review of laboratory resultsAbnormalSentara Obici Hospital Urea nitrogen [Mass/Vol]15 mg/dL6 - 20 mg/dLBon [facility] CenterBUN + Creatinineon 33-63-5362Qqvabrzwdg [Mass/Vol]1.3 mg/dLHigh 0.5-0.9[facility] on above:Performed By: #### BUNCRT #### [facility] Lab [address] [place] [address] Engineer: Emily George MDGFR/1.73 sq M.predicted among non-blacks MDRD (S/P/Bld) [Vol rate/Area]52 mL/min/{1.73_m2}Low>60[facility] on above:Result Comment: These results [...] renal tubular secretion.Performed By: #### BUNCRT #### [facility] Lab [address] [place] [phone] Engineer: Emily George MDUrea nitrogen [Mass/Vol]15 mg/dLNormal6-20Mercy Watkins HospitalComment on above:Performed By: #### BUNCRT #### [facility] Lab [address] [place] [address] Engineer: RUTH Mirza BUN + CREATININEon 95-02-9428Sldzlconit [Mass/Vol]1.3 mg/dLHigh0.5 - 0.9 mg/dLUniversity of Missouri Children's HospitalInterpretation and review of laboratory resultsAbHenry Ford Wyandotte HospitalMHPT RPGO81Tmy- [facility] Comment on above: These results are [...] secretion. Urea nitrogen [Mass/Vol]15 mg/dL6 - 20 mg/dLUniversity of Missouri Children's HospitalOriginal Ordering Provider: ROBBIN DENTONFormerly Mary Black Health System - SpartanburgMR Foot - right WO and W contrast Chay [id number] Study observation (narrative)Denton ChasityAultman Orrville HospitalXR Foot - right 2 Viewson [id number] Result: XRAY RIGHT FOOT: AP/OBL- No fx. Lis franc diastasis concern with deformity. DP 2 mild cortical disruption 1-2mm possible. No bone density changesUNC Health Nash Cult,Woundon [id number],WoundSpecimen Description .TOE Direct Exam NO NEUTROPHILS SEEN [...] SUSCEPTIBLE Trimethoprim/Sulfa <=10 SUSCEPTIBLE Vancomycin 1 SUSCEPTIBLESusceptibleMercy Merit Health NatchezComment on above: Performed By: #### WDC ####[address] [place], [place] [phone] lab Director: Placido Pierce [facility] [address] [place] [address] lab Director: Emily George MD XR Foot - right 2 Viewson [id number] Study observation (narrative)[facility] HealthcareBrain Natri. Peptideon 89-01-1788Ungrxzgcvbb peptide B (Bld) [Mass/Vol]262 pg/mLNormal<300Cleveland Clinic Union HospitalComment on above:Result Comment: An age-independent cutoff point of 300 pg/ml has a 98% negative predictive value excluding acute heart failure.Performed By: #### BNP, SED, CRP #### [facility] Lab [address] [place] [address] Engineer: Emily George MDBrain Natriuretic Peptideon [id number] peptide B (Bld) [Mass/Vol]262 pg/mLNINF - 300 pg/mLSentara Obici Hospital Comment on above:An age-independent cutoff point of 300 pg/ml has a 98% negative predictive value excluding acute heart failure. C-Reactive Proteinon [id number] High sensitivity method [Mass/Vol]46.7 mg/L High0.0 - 5.0 mg/LBCarilion Roanoke Memorial HospitalInterpretation and review of laboratory resultsAbnormalBon [facility] Medical CenterCRP [Mass/Vol]46.7 mg/LHigh 0.0-5.0C[facility] Clinic Union HospitalComment on above:Performed By: #### BNP, SED, CRP ####[facility] Zsp[address]188 [place] [phone] Director: SHER MirzaBC with Auto Differentialon 04-04-2025 Basophils (Bld) [#/Vol]0.02 10*3/uLBon [facility] CenterBasophils/100 WBC (Bld)0 %0 - 2 %Bon [facility] Medical CenterEosinophils (Bld) [#/Vol]0.07 10*3/uLBon [facility] Medical CenterEosinophils/100 WBC (Bld)1 %0 - 5 %Bon SecAultman Orrville Hospital Erythrocyte distribution width (RBC) [Ratio]18.4 %High12.1 - 15.2 %Bon SecAultman Orrville HospitalHematocrit (Bld) [Volume fraction]30 %Low36.0 - 46.0 %Bon SecAultman Orrville HospitalHemoglobin (Bld) [Mass/Vol]9.6 g/dLLow12.0 - 16.0 g/dLBon Secours Cincinnati Va Medical CenterImmature granulocytes (Bld) [#/Vol]0.13 10*3/uLBon Secours Cincinnati Va Medical CenterImmature granulocytes/100 WBC (Bld)2 %0 - 5 %[facility] Interpretation and review of laboratory resultsAbnormalBon [facility] Lymphocytes/100 WBC (Bld)23 %15 - 40 %[facility] SecAultman Orrville HospitalLymphocytes/100 WBC (Bld)1.39 %[facility] Medical CenterH (RBC) [Entitic mass]27 pg26.0 - 34.0 pgBon SecAultman Orrville HospitalMCHC (RBC) [Mass/Vol]32 g/dL31.0 - 37.0 g/dLBon SecAultman Orrville HospitalMCV (RBC) [Entitic vol]84.3 fL80.0 - 100.0 fLBon SecAultman Orrville HospitalMonocytes/100 WBC (Bld)6 %4 - 8 %[facility] Monocytes/100 WBC (Bld)0.37 %[facility] SecAultman Orrville HospitalNeutrophils/100 WBC (Bld)68 %47 - 75 %Bon SecAultman Orrville HospitalPlatelet mean volume (Bld) [Entitic vol]11.7 fL6.0 - 12.0 fLBon [facility] HealthPlatelets (Bld) [#/Vol]186 10*3/uLBon [facility] HealthRBC (Bld) [#/Vol]3.56 10*6/uLLow4.00 - 5.20 m/uLBon [facility] CenterSegmented neutrophils/100 WBC (Bld)4.09 %Bon SecAultman Orrville HospitalWBC other (Bld) [#/Vol]6.1[facility] Va Medical CenterBon [facility]ours [facility] Va Medical CenterCBC with Diffon [id number]. Basophil0.02 k/uLNormal0.00-0.20[facility] Comment on above:Performed By: #### CDP #### [facility] Lab [address] [place] [phone] Engineer: Eagle Mirza.Imm.Granulocyte0.13 k/uLNormal0.00-0.30[facility] Union HospitalComment on above:Performed By: #### CDP #### [facility] Lab [address] [place] [address] Engineer: MDAbs. HermesNeutrophil (Seg)4.09 k/uLNormal2.5-7.0[facility] Union HospitalComment on above:Performed By: #### CDP #### [facility] Lab [address] [place] [address] Engineer: Emily George MDBasophils/100 WBC (Bld)0 %Normal0-2MTrinity Health System West Campus HospitalComment on above:Performed By: #### CDP #### [facility] Lab [address] [place] [address] Engineer: Emily George MDEosinophils (Bld) [#/Vol]0.07 10*3/uLNormal 0.00-0.40[facility] HospitalComment on above:Performed By: #### CDP #### [facility] Lab [address] [place] [phone] Engineer: BRENDA Mirzaosinophils/100 WBC (Bld)1 %Normal0-5C[facility] Clinic Union HospitalComment on above:Performed By: #### CDP #### [facility] Lab [address] [place] [phone] Engineer: Emily George MDErythrocyte distribution width (RBC) [Ratio]18.4 % High12.1-15.2MToledo HospitalComment on above:Performed By: #### CDP #### [facility] Lab [address] [place] [address] Engineer: Emily George MDHematocrit (Bld) [Volume fraction]30.0 %Low 36.0-46.0[facility] Union HospitalCommunson healthcare grayling hospital on above:Performed By: #### CDP #### [facility] Lab [address] [place] [address] Engineer: Emily George MDHemoglobin (Bld) [Mass/Vol]9.6 g/dLLow12.0-16.0 [facility] on above:Performed By: #### CDP #### [facility] Lab [address] [place], [place] [phone] Engineer: Emily George MDImmature granulocytes/100 WBC (Bld)2 %Normal0-5 [facility] on above:Performed By: #### CDP #### [facility] Lab [address] [place] [address] Engineer: Leelee Mirzamphocytes (Bld) [#/Vol]1.39 10*3/uLNormal 1.00-4.80[facility] on above:Performed By: #### CDP #### [facility] Lab [address] [place], [place] 1417890 Engineer: Leelee Mirzamphocytes/100 WBC (Bld)23 %Jzylxq73-39PilpaWVUMedicine Harrison Community Hospital on above:Performed By: #### CDP #### [facility] Lab [address] [place] [address] Engineer: ELISABET MirzaCH (RBC) [Entitic mass]27.0 qpHqhwht76.0-34.0 [facility] on above:Performed By: #### CDP #### [facility] Lab [address] [place] [address] Engineer: ELISABET MirzaCHC (RBC) [Mass/Vol]32.0 g/qGAjtavr38.0-37.0[facility] HospitalComment on above:Performed By: #### CDP #### [facility] Lab [address] [place] [address] Engineer: ELISABET MirzaCV (RBC) [Entitic vol]84.3 qKQgpidw26.0-100.0 [facility] HospitalComment on above:Performed By: #### CDP #### [facility] Lab [address] [place] [address] Engineer: ELISABET Mirzaonocytes (Bld) [#/Vol]0.37 10*3/uLNormal0.00-1.00 [facility] HospitalComment on above:Performed By: #### CDP #### [facility] Lab [address] [place] [address] Engineer: ELISABET Mirzaonocytes/100 WBC (Bld)6 %Normal4-8[facility] HospitalCommunson healthcare grayling hospital on above:Performed By: #### CDP #### [facility] Lab [address] [place] [address] Engineer: Emily George MDNeutrophil (Seg)68 %Usjnvx07-48GzhutCleveland Clinic Union HospitalComment on above:Performed By: #### CDP #### [facility] Lab [address] [place] [address] Engineer: ANNMARIE Mirzalatelet mean volume (Bld) [Entitic vol]11.7 fL Normal6.0-12.0[facility] HospitalComment on above:Performed By: #### CDP #### [facility] Lab [address] [place] [address] Engineer: Terrence Mirza (d) [#/Vol]186 10*3/rZTjikei899-484 [facility] HospitalComment on above:Performed By: #### CDP #### [facility] Lab [address] [place], [place] 1534390 Engineer: ELMO Mirza (d) [#/Vol]3.56 10*6/uLLow4.00-5.20[facility] HospitalComment on above:Performed By: #### CDP #### [facility] Lab [address] [place], [place] [phone] Engineer: LLOYD Mirza (d) [#/Vol]6.1 10*3/uLNormal3.5-11.0[facility] HospitalComment on above:Performed By: #### CDP #### [facility] Lab [address] [place], [place] [phone] Engineer: Kiara Mirza Panel Informationon 04-04-2025 No acute [...] blastic bony lesions. There is normal mineralization. [facility] Daksha Frances MD - 04/04/2025 EXAM: XR [...] Postsurgical changes partially imaged on the left. [facility] BooknGoInova Fair Oaks HospitalPrismaStarNo Panel InformationOrdered By: Daksha Hannah on 62-75-9117Xhv Phoenix Indian Medical CenterPrismaStar Work Phone: sedimentation Rateon [id number] Photometric method (Bld) [Velocity]32[facility] Community HospitalInterpretation and review of laboratory resultsAbnormalRiverside Doctors' Hospital [place] Sedimentation Rate32 mm/HrReynolds Memorial Hospital033 King StreetComment on above: Performed By: #### BNP, SED, CRP ####[facility] [address] [facility] [place] [address] lab Director: LIONEL MirzaR TOE LEFT (MIN 2 VIEWS)on [id number] TOE LEFT (MIN 2 VIEWS)EXAM: XR TOE [...] Signed by: Daksha Hannah MD 04/04/25 Final resultNormalCleveland Clinic Union HospitalXR TOE RIGHT (MIN 2 VIEWS)on 04-04-2025 [...] Signed by: Daksha Hannah MD 04/04/25 Final resultNormalCleveland Clinic Union HospitalXR Toes - left 2 Viewson 04-04-2025 Radiology Study observation (narrative)[facility] Obici HospitalXR Toes - right 2 Viewson [id number] Study observation (narrative)[facility] BRIAN DIGITAL SCREEN BILATERALon [id number] BRIAN DIGITAL SCREEN BILATERALHISTORY: Screening. TECHNIQUE: Bilateral digital [...] be mailed to the patient. Performing Facility: [place] [address] Interpreted by: Micky Lauren Jr., MD Signed by: Micky Lauren Jr., MD 02/28/25 Final resultNormalOhioHealth Shelby Hospital Metabolic Profon [id number] [Mass/Vol]3.8 g/dLNormal3.5-5.2[facility] on above:Performed By: #### LIPR, LDLDIR, GLYHGB #### [employer] [address] [place] [address] Engineer: Placido Pierce MD #### CP #### [facility] Lab [address] [place], [place] 8907190 Engineer: Manish Mirza Sdbu921 U/GLuih17-341PbjbtWVUMedicine Harrison Community Hospital on above:Performed By: #### LIPR, LDLDIR, GLYHGB #### [employer] [address] [place] [address] Engineer: Placido Pierce MD #### CP #### [facility] Lab [address] [place], [place] 4849190 Engineer: RAMA Mirza [Catalytic activity/Vol]11 U/LNormal5-33[facility] on above:Performed By: #### LIPR, LDLDIR, GLYHGB #### [employer] [address] [place] [address] Engineer: Placido Pierce MD #### CP #### [facility] Lab [address] [place] [address] Engineer: Myles Mirza gap [Moles/Vol]12 mmol/LNormal9-17[facility] on above:Performed By: #### LIPR, LDLDIR, GLYHGB #### [employer] [address] [place] [address] Engineer: Placido Pierce MD #### CP #### [facility] Lab [address] [place], [place] 6298590 Engineer: Emily George MDAST [Catalytic activity/Vol]14 U/LNormal<32[facility] HospitalComment on above:Performed By: #### LIPR, LDLDIR, GLYHGB #### [address] [id number] Engineer: Placido Pierce MD #### CP #### [facility] Lab [address] [place], [place] 1276690 Engineer: Emily George MDBilirubin [Mass/Vol]0.4 mg/dLNormal0.3-1.2MToledo HospitalComment on above:Performed By: #### LIPR, LDLDIR, GLYHGB #### [address] [id number] Engineer: Placido Pierce MD #### CP #### [facility] Lab [address] [place], [place] 5102590 Engineer: Emily George MDBUN/CRE Kwsdw22Hfezmz8-93Fcelr [facility] Comment on above:Performed By: #### LIPR, LDLDIR, GLYHGB #### [address] [phone] Engineer: Placido Pierce MD #### CP #### [facility] Lab [address] [place], [place] 3615490 Engineer: SHER Mirzaalcium [Mass/Vol]9.3 mg/dLNormal8.6-10.4[facility] HospitalComment on above:Performed By: #### LIPR, LDLDIR, GLYHGB #### [address] [id number] Engineer: Placido Pierce MD #### CP #### [facility] Lab [address] [place] [address] Engineer: SHER Mirzahloride [Moles/Vol]102 mmol/EWxlpbf02-578YchzqCleveland Clinic Union HospitalComment on above:Performed By: #### LIPR, LDLDIR, GLYHGB #### [address] [id number] Engineer: Placido Pierce MD #### CP #### [facility] Lab [address] [place], [place] 2154190 Engineer: SHER MirzaO2 [Moles/Vol]25 mmol/YQkfmhk56-61StkovCleveland Clinic Union HospitalComment on above:Performed By: #### LIPR, LDLDIR, GLYHGB #### [address] [id number] Engineer: Placido Pierce MD #### CP #### [facility] Lab [address] [place] [address] Engineer: SHER Mirzareatinine [Mass/Vol]1.1 mg/dLHigh0.5-0.9[facility] HospitalCommunson healthcare grayling hospital on above:Performed By: #### LIPR, LDLDIR, GLYHGB #### [address] [phone] Engineer: Placido Pierce MD #### CP #### [facility] Lab [address] [place] [address] Engineer: Emily George MDGFR/1.73 sq M.predicted among non-blacks MDRD (S/P/Bld) [Vol rate/Area]63 mL/min/{1.73_m2}Normal>60[facility] Comment on above:Result Comment: These results [...] secretion.Performed By: #### LIPR, LDLDIR, GLYHGB #### [address] [phone] Engineer: Placido Pierce MD #### CP #### [facility] Lab [address] [place], [place] 1504890 Engineer: Emily George MDGlucose [Mass/Vol]125 mg/qVQwci14-88KvhsqToledo HospitalComment on above:Performed By: #### LIPR, LDLDIR, GLYHGB #### [address] [phone] Engineer: Placido Pierce MD #### CP #### [facility] Lab [address] [place], [place] [phone] Engineer: Emily George MDPotassium [Moles/Vol]4.2 mmol/LNormal3.7-5.3MToledo HospitalComment on above:Performed By: #### LIPR, LDLDIR, GLYHGB #### [address] [id number] Engineer: Placido Pierce MD #### CP #### [facility] [address] [place], [place] [phone] Engineer: Emily George MDProtein [Mass/Vol]7.2 g/dLNormal6.4-8.3MToledo HospitalComment on above:Performed By: #### LIPR, LDLDIR, GLYHGB #### [address] [phone] Engineer: Placido Pierce MD #### CP #### [facility] [address] [place], [place] [phone] Engineer: MARIKA Mirzaodium [Moles/Vol]139 mmol/OJtcqnx194-372UjrczCleveland Clinic Union HospitalComment on above:Performed By: #### LIPR, LDLDIR, GLYHGB #### [facility] [address] [place], [place] [phone] Engineer: Placido Pierce MD #### CP #### [facility] [address] [place], [place] [phone] Engineer: Emily George MDUrea nitrogen [Mass/Vol]21 mg/dLHigh6-20Cleveland Clinic Union HospitalComment on above:Performed By: #### LIPR, LDLDIR, GLYHGB #### [facility] [place], [place] [phone] Engineer: Placido Pierce MD #### CP #### [facility] [address] [place], [place] [phone] Engineer: SHER Mirzaomprehensive Metabolic Panelon 75-07-4105Payrclh [Mass/Vol]3.8 g/dL3.5 - 5.2 g/dLBon Secours Promedica Toledo Hospitaly HealthALP [Catalytic activity/Vol]115 U/LHigh35 - 104 U/LBon Secours Promedica [facility] Hospitaly HealthALT [Catalytic activity/Vol]11 U/L5 - 33 U/LBon Secours Mercy HealthAnion gap [Moles/Vol]12 mmol/L9 - 17 mmol/LBon Secours [facility]edica [facility] Hospitaly HealthAST [Catalytic activity/Vol]14 U/L NINF - 32 U/LBon Secours Promedica Tol[place] Hospitaly HealthBilirubin [Mass/Vol]0.4 mg/dL0.3 - 1.2 mg/dLBon Secours Mercy HealthCalcium [Mass/Vol]9.3 mg/dL8.6 - 10.4 mg/dLBon Secours Mercy HealthChloride [Moles/Vol]102 mmol/L98 - 107 mmol/LBon Secours Promedica [facility] Hospitaly HealthCO2 [Moles/Vol]25 mmol/L20 - 31 mmol/LBon [facility] Creatinine [Mass/Vol]1.1 mg/dLHigh0.5 - 0.9 mg/dLBon [facility] CenterEst, Glodieudonne Filt Rate63- PINFBon [facility] on above: These results are not intended [...] that affects renal tubular secretion. Glucose [Mass/Vol]125 mg/cXEyds66 - 99 mg/dLBon [facility] Interpretation and review of laboratory resultsAbnoBath Community Hospital Potassium [Moles/Vol]4.2 mmol/L3.7 - 5.3 mmol/LBon [facility] CenterProtein [Mass/Vol]7.2 g/dL6.4 - 8.3 g/dLBon [facility] CenterSodium [Moles/Vol]139 mmol/L135 - 144 mmol/LBon [facility] CenterUrea nitrogen [Mass/Vol]21 mg/dL High6 - 20 mg/dLBon [facility] CenterUrea nitrogen/Creatinine [Mass ratio]19 mg/mg9 - 20Bon [facility] CenterHemoglobin A1Con 64-27-8963[place] glucose Estimated from glycated hemoglobin (Bld) [Mass/Vol]103 mg/dLBon [facility] Samaritan Hospitalment on above:The ADA and AACC recommend providing the estimated average glucose result to permit better patient understanding of their HBA1c result. HbA1c (Bld) [Mass fraction]5.2 %4.0 - 6.0 %[facility] WilliamsburgGlucose [Mass/Vol]103 mg/dLNoThe [facility] on above:Result Comment: The ADA and AACC recommend providing the estimated average glucose result to permit better patient understanding of their HBA1c result.Performed By: #### LIPR, LDLDIR, GLYHGB #### [employer] [facility] [place], [place] [phone] Engineer: Placido Pierce MD #### CP #### [facility] [address] [place], [place] [phone] Engineer: Emily George MDHbA1c (Bld) [Mass fraction]5.2 %Normal4.0-6.0[facility] on above:Performed By: #### LIPR, LDLDIR, GLYHGB #### [facility] [employer] [address] [place] [address] [phone] Engineer: Placido Pierce MD #### CP #### [facility] [address] [place], [place] [phone] Engineer: Emily George MDLDL Chol, Directon 51-54-4832YTY Chol, Xjgueg07 mg/dLNormal<100Cleveland Clinic Union HospitalComment on above:Performed By: #### LIPR, LDLDIR, GLYHGB #### [facility] [employer] [facility] [place], [place] [phone] Engineer: Placido Pierce MD #### CP #### [facility] [address] [place] [address] Engineer: Emily George MDLDL Cholesterol, Directon 36-34-9485Uxdmznbawbl in LDL [Mass/Vol]94 mg/dLNINF - 100 mg/dLBon [facility] CenterBon [facility] CenterLipid Panelon 65-41-0259Rujjnsagwvz [Mass/Vol]179 mg/dL0 - 199 mg/dLBon [facility] CenterComment on above: Cholesterol Guidelines: <200 Desirable 200-240 Borderline >240 Undesirable Cholesterol in HDL [Mass/Vol]31 mg/dLLow40 - PINF mg/dLBon [facility] Comment on above: HDL Guidelines: <40 Undesirable 40-59 Borderline >59 Desirable Cholesterol in LDL [Mass/Vol]Can not be calculated0 - 100 mg/dLBon [facility] CenterComment on above: LDL Guidelines: <100 Desirable 100-129 Near to/above Desirable 130-159 Borderline >159 Undesirable Direct (measured) LDL and calculated LDL are not interchangeable tests. Cholesterol in VLDL [Mass/Vol]Can not be calculated1 - 30 mg/dLBon [facility] CenterCholesterol.total/Cholesterol in HDL [Mass ratio]5.8 {ratio}[facility] HospitalInterpretation and review of laboratory resultsAbnormalBon [facility] CenterTriglyceride [Mass/Vol]407 mg/dLHighNINF - 150 mg/dLBon [facility] CenterComment on above: Triglyceride Guidelines: <150 Desirable 150-199 Borderline 200-499 High >499 Very high Based on AHA Guidelines for fasting triglyceride, July 2012. [facility] Obici HospitalLipid Profileon 50-25-6260Xrtlbfxflxd [Mass/Vol]179 mg/dLNormal0-199[facility] on above:Result Comment: Cholesterol Guidelines: <200 Desirable 200-240 Borderline >240 UndesirablePerformed By: #### LIPR, LDLDIR, GLYHGB #### [address] [address] Engineer: Placido Pierce MD #### CP #### [facility] [address] [place] [address] Engineer: SHER Mirzaholesterol in HDL [Mass/Vol]31 mg/dLLow>40WV[facility] on above:Result Comment: HDL Guidelines: <40 Undesirable 40-59 Borderline >59 DesirablePerformed By: #### LIPR, LDLDIR, GLYHGB #### [address] [phone] Engineer: Placido Pierce MD #### CP #### [facility] [address] [place] [address] Engineer: SHER Mirzaholesterol,LDLCan not be calculatedNormal0-100 [facility] on above:Result Comment: LDL Guidelines: <100 Desirable 100-129 Near to/above Desirable 130-159 Borderline >159 Undesirable Direct (measured) LDL and calculated LDL are not interchangeable tests.Performed By: #### LIPR, LDLDIR, GLYHGB #### [facility] [employer] [facility] [place] [address] Engineer: Placido Pierce MD #### CP #### [facility] [address] [place] [address] Engineer: SHER Mirzaholesterol,VLDLCan not be calculatedNormal1-30 [facility] on above:Performed By: #### LIPR, LDLDIR, GLYHGB #### [address] [address] Engineer: Placido Pierce MD #### CP #### [facility] [address] [place], [place] [phone] Engineer: Oliverio Mirzastsanjay.total/Cholesterol in HDL [Mass ratio] 5.8 {ratio}NormalWVUMedicine Harrison Community Hospital on above:Performed By: #### LIPR, LDLDIR, GLYHGB #### [address] [address] Engineer: Placido Pierce MD #### CP #### [facility] [address] [place], [place] [phone] Engineer: Emily George MDTriglyceride [Mass/Vol]407 mg/dLHigh<150[facility] on above:Result Comment: Triglyceride Guidelines: <150 Desirable 150-199 Borderline 200-499 High >499 Very high Based on AHA Guidelines for fasting triglyceride, July 2012.Performed By: #### LIPR, LDLDIR, GLYHGB #### [facility] [address] [place] [address] Engineer: Placido Pierce MD #### CP #### [facility] [address] [place] [address] Engineer: Emily Goerge MD THYROIDon [id number] THYROIDEXAM: US THYROID HISTORY: Thyroid nodule COMPARISON: [...] by: Micky Lauren Jr., MD 09/07/24 Final resultNormalMerRochester General Hospital Thyroid glandon 09-07-2024 TI-RADS 5, highly suspicious subcentimeter nodule in the right lobe remains stable. (Follow if greater than or equal to 0.5 cm annually until 5 years according to ACR TI-RADS recommendations). Continued follow-up annually is recommended through 2026. [facility] CONSOLIDATEDEXAM: US THYROID HISTORY: Thyroid [...] 1.7 x 1.3 cm. Isthmus: 0.2 cm [facility] Micky Manzanares Jr., MD - [...] Continued follow-up annually is recommended through 2026. [employer] Thyroid glandOrdered By: Micky Lauren on 09-07-2024 [facility] [employer] Work Phone: us Thyroid glandon [id number] Study observation (narrative)[facility] [employer]-Fi by NextivityMagnesiumon 45-62-1377Kucgekmsp [Mass/Vol]2.2 mg/dL1.6 - 2.6 mg/dLBON GymRealmNo Panel Informationon [id number] Soundvamp HEALTHProtein / creatinine ratio, urineon 87-67-8016Uqwgelcxjk (U) [Mass/Vol]132.0 mg/dL28.0 - 217.0 mg/dLBON Sound[employer]amp HEALTHProtein (U) [Mass/Vol]9 mg/dLBON [employer] HEALTHComment on above:No normal range established.Urine Total Protein Creatinine Ratio0.07BON [facility]ICAL CENTERSwapper TradeBON MOUNTAIN VISTA MEDICAL CENTERSportyBird HEALTHRenal Function Panelon 05-10-2024 Albumin [Mass/Vol]4.2 g/dL3.5 - 5.2 g/dLBON SECSwapper TradeAnion gap [Moles/Vol]15 mmol/L9 - 17 mmol/LBON SECSportyBird HEALTHCalcium [Mass/Vol]9.2 mg/dL8.6 - 10.4 mg/dLBON SECSportyBird HEALTHChloride [Moles/Vol]101 mmol/L98 - 107 mmol/LBON SECSportyBird HEALTHCO2 [Moles/Vol]25 mmol/L20 - 31 mmol/LBON SECSportyBird [facility] HOSPITALCreatinine [Mass/Vol]1.3 mg/dLHigh0.5 - 0.9 mg/dLBON SECOURS WHITE HOSPITALQualMetrix [facility]YAN HOSPITALEst, Glom Filt Usmj51Irl- PINFBON SECLUTHERAN HOSPITALComment on above: These results are not [...] that affects renal tubular secretion. Glucose [Mass/Vol]141 mg/xTGtpy09 - 99 mg/dLBON [facility] YooDeal Interpretation and review of laboratory resultsAbnormalBON [facility] Phosphate [Mass/Vol]3.8 mg/dL2.6 - 4.5 mg/dLBON KINDRED HOSPITALFunnelyPotassium [Moles/Vol]4.0 mmol/L3.7 - 5.3 mmol/LBON [facility] BOARDMAN HOSPITALSodium [Moles/Vol] 141 mmol/L135 - 144 mmol/LBON [facility] BOARDMAN HOSPITALUrea nitrogen [Mass/Vol]19 mg/dL6 - 20 mg/dLBON [facility] ST[facility] ELIZ[facility] BOARDMAN HOSPITALUrea nitrogen/Creatinine [Mass ratio]15 mg/mg9 - 20BON [facility] CENTERLessonwriter WHITE HOSPITALQualMetrix [facility] HOSPITALUrinalysison 69-38-8263Xsrcimmjk Ql (U) NegativeNEGATIVEBON [facility] ST[facility] BOARDMAN HOSPITALClarity (U)ClearClearBON SECCOLUMBIA BASIN HOSPITALQualMetrix [facility] HOSPITALColor (U)YellowYellowBON SECLUTHERAN HOSPITALCommentBON [facility] BOARDMAN HOSPITALGlucose Test strip (U) [Mass/Vol]NegativeNEGATIVE mg/dLBON [facility] YooDealHemoglobin Auto test strip Ql (U)NegativeNEGATIVEBON [facility] Interpretation and review of laboratory resultsAbnormalBON [facility] Ketones (U) [Mass/Vol]NegativeNEGATIVE mg/dLBON [facility] YooDealLeukocyte esterase Test strip Ql (U)NegativeNEGATIVEBON [facility] CENTERLessonwriter WHITE HOSPITALQualMetrix [facility] BRY[facility] HOSPITALNitrite Ql (U) NegativeNEGATIVEBON SECCOLUMBIA BASIN HOSPITALQualMetrix [facility] BRY[facility] HOSPITALpH (U)5.0 [pH]5.0 - 8.0BON [facility] HEALTHProtein (U) [Mass/Vol]TRACEAbnormalNEGATIVE mg/dLBON [facility] Specific gravity (U) [Rel density]1.0201.005 - 1.030B[facility] Urobilinogen Qn (U)Normal0.0 - 1.0 EU/dLBON [facility] BOARDMAN HOSPITALBON [facility] ELIZABETH BOARDMAN HOSPITALLon [id number]: [id number] Received: 02/16/24 Status: ARLEN Zuletapaola Num: [id number] Spec Type: Surgical Subm Dr: Frances Harris DPM, [place] Tissues: A Soft Tissue/Surgical Margin-Other than Tumor,Mass,Lip or Becka (LT MID FOOT CH Procedures: HE/2, Gross/Micro L4 Age/ Patient Sex Location Account Attending Physician Celina Gaspar 43/F [place] [id number] Frances Harris DPM, [place] SPEC NUM: [id number] RECD: 02/16/24 STATUS: ARLEN ALEXA NUM: [id number] MAYTE: 02/15/[address] [facility] [address]: Frances Harris DPM, [place] ENTERED: 02/16/[address] [facility] [address]: Ursula,Darwin SPEC TYPE: Surgical DEPT: DEANA [...] sections reveal firm, yellow spongy bone matrix. Cylindrical Mixer sections are submitted following decalcification in A1?A2. Clinical history: varus deformity left ankle, charcot join left ankle and foot. CPT Codes 63586 Specimen: [id number] Received: 02/16/24 Status: ARLEN Julia Num: [id number] Spec Type: Surgical Subm Dr: Frances Harris DPM, [place] Tissues: A Soft Tissue/Surgical Margin-Other than Tumor,Mass,Lip or Becka (LT MID FOOT CH Procedures: HE/Stefan, Gross/Micro L4 Patient: Celina Gaspar [id number] (Continued) Signed (signature on file) Juan José Yu MD 02/17/[address] [place] [address] Physician GroupLipid Panelon 06-15-2023 Cholesterol [Mass/Vol]174 mg/dLNINF - 200 mg/dLBON [facility] BOARDMAN HOSPITALComment on above: Cholesterol Guidelines: <200 Desirable 200-240 Borderline >240 Undesirable Cholesterol in HDL [Mass/Vol]30 mg/dLLow40 - PINF mg/dLBON [employer]Realm Comment on above: HDL Guidelines: <40 Undesirable 40-59 Borderline >59 Desirable Cholesterol in LDL [Mass/Vol]77 mg/dL0 - 130 mg/dLBON [employer]Realm Comment on above: LDL Guidelines: <100 Desirable 100-129 Near to/above Desirable 130-159 Borderline >159 Undesirable Direct (measured) LDL and calculated LDL are not interchangeable tests. Cholesterol.total/Cholesterol in HDL [Mass ratio]5.8 {ratio}HighNINF - 5BON GymRealmInterpretation and review of laboratory resultsAbnormalBON GymRealmTriglyceride [Mass/Vol]334 mg/dLHighNINF - 150 mg/dLBON GymRealmComment on above: Triglyceride Guidelines: <150 Desirable 150-199 Borderline 200-499 High >499 Very high Based on AHA Guidelines for fasting triglyceride, July 2012. BON [facility]ENTERSwapper TradeBUN & Creatinineon 06-20-4608Tejrtjujim [Mass/Vol]1.08 mg/dLHigh0.50 - 0.90 mg/dLBON GymRealmGFR/1.73 sq M.predicted MDRD (S/P/Bld) [Vol rate/Area]- PINFBON GymRealmComment on above: These results are not intended [...] Urea nitrogen [Mass/Vol]21 mg/dLHigh6 - 20 mg/dLBON GymRealmCBC with Auto Differentialon [id number] Eos #0.10BON GymRealm Absolute Lymph #1.70BON GymRealmAbsolute [place] #0.50BON GymRealmBasophils (Bld) [#/Vol]0.00 10*3/uLBON [facility] HEALTHBasophils/100 WBC (Bld)1 %0 - 2 %BON [facility] HEALTHDifferential TypeYESBON SECLUTHERAN HOSPITALEosinophils/100 WBC (Bld)1 %0 - 5 %BON [facility] BOARDMAN HOSPITALHematocrit (Bld) [Volume fraction]36.2 %36 - 46 %BON [facility] BO[facility]DMAN HOSPITALHemoglobin (Bld) [Mass/Vol]12.2 g/dL12.0 - 16.0 g/dLBON [facility] BOARDMAN HOSPITALInterpretation and review of laboratory resultsAbnormalBON [facility] ST[facility] EL[facility] BOARDMAN HOSPITALLymphocytes/100 WBC (Bld)23 %15 - 40 %BON [facility] HOSPITALH (RBC) [Entitic mass]28.7 pg26 - 34 pgBON SECCHERRINGTON HOSPITALHC (RBC) [Mass/Vol]33.7 g/dL31 - 37 g/dLBON SECCHERRINGTON HOSPITALV (RBC) [Entitic vol]85.3 fL80 - [address] [facility] Monocytes/100 WBC (Bld)7 %4 - 8 %[facility] HEALTHPlatelet distribution width (Bld) [Ratio]18.1 %High12.1 - 15.2 %[facility] HEALTHPlatelets (Bld) [#/Vol]150 10*3/uLBON [facility]ST[facility] HEALTHRBC (Bld) [#/Vol]4.25 10*6/uL4.0 - 5.2 m/uLBON [facility] ST[facility] EL[facility] BOARDMAN HOSPITALSegmented neutrophils/100 WBC (Bld)68 %47 - 75 %[facility] HEALTHSegs Absolute5.30BON SECOURS [facility]ERGER HOSPITALWBC (Bld) [#/Vol]7.6 10*3/uLBON [facility] SECST. [facility] HEALTHChlorideon [id number] [Moles/Vol]99 mmol/L98 - 107 mmol/LBON [facility] Glucose, Randomon 39-03-1697Gfyowui [Mass/Vol]107 mg/qBWsrl50 - 99 mg/dLBON [facility] BO[facility] HOSPITALNo Panel Informationon [id number] and review of laboratory resultsAbnormalBON [facility]CC[facility] Potassiumon 83-84-6516Xvmpqtiks [Moles/Vol]4.6 mmol/L3.7 - 5.3 mmol/LBON SECLUTHERAN HOSPITALSodiumon 81-03-1559Qzblff [Moles/Vol]134 mmol/LBwc915 - 144 mmol/L B[facility] BOAR[facility]AN HOSPITALWet Prep, Genitalon 55-16-0101Ohwzgxfusyluwi and review of laboratory resultsAbnormalBON SECCOLUMBIA BASIN HOSPITALY HEALTHMicroorganism or agent identified Nom (Unsp spec)FEW WBCAbnormalBON [facility]ST. [facility] HEALTHMicroorganism or agent identified Nom (Unsp spec)MODERATE EPITHELIAL CELLSAbnormalBON SECST. [facility] HEALTHMicroorganism or agent identified Nom (Unsp spec)MODERATE BACTERIA AbnormalBON [facility] HEALTHMicroorganism or agent identified Nom (Unsp spec)NO TRICHOMONAS SEENBON [facility] HEALTHMicroorganism or agent identified Nom (Unsp spec)NO FUNGAL ELEMENTS SEENBON [facility] Microorganism or agent identified Nom (Unsp spec)NO CLUECELL SEENBON [facility] HEALTHSpecimen Description.VAGINABON [facility] HEALTHCT FOOT LT WO CONon [id number] FOOT LT WO CONEXAMINATION: CT FOOT LT [...] Electronically authenticated by: EMILY ELY Date: 2023-02-04 20:14[facility]XR ANKLE LEFT 3+ VIEWS (STANDARD)on [id number] ANKLE LEFT 3+ VIEWS (STANDARD)EXAMINATION: XR ANKLE [...] RODRIGUEZ on ThuJan 06, 2023 6:11:26 PM [facility] Comment on above:Order Comment: Injury/Trauma or [...] osteomyelitis. No nonenhancing abscess pockets are identified. [facility] Mike Walden MD - 06/25/2022 EXAM: MRI [...] fragmentation of the navicular and cuneiform bones. [employer]Store[employer] Phone: radiology Study observation (narrative)[employer] Phone: MRI FOOT LEFT W WO CONTRASTOrdered By: Mike Villavicencio on [id number] ActionPlanner Phone: XR FOOT LEFT (2 VIEWS)on 23-30-5199Yywpc is a linear metallic foreign body projecting between the second and third metatarsals. There is also a metallic foreign body within the lower leg. There is fragmentation of the navicular as well as of all 3 cuneiforms. The appearance is consistent with the patient's history of neuropathy. [facility] ASTRID CONSOLIDATEDEXAM: XR FOOT LEFT (2 VIEWS) HISTORY: M79.5. The patient is a 42-year-old female. Evaluate for foreign body. COMPARISON: None. [facility] Mike Yoder MD - 06/25/2022 [...] consistent with the patient's history of neuropathy. 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 Clinical follow up recommended. Subcentimeter highly suspicious nodule in the right thyroid lobe 7 mm in greatest dimension. This meets criteria for annual follow up for 5 years. It does not meet criteria for FNA. [facility] CONSOLIDATEDEXAM: US HEAD NECK SOFT [...] It does not meet criteria for FNA. [employer] Phone: radiology Study observation (narrative)[employer] Phone: US HEAD NECK SOFT TISSUE THYROIDOrdered By: Micky Lauren on [id number] [employer] Phone: Rejection Notificationon 56-53-8280Hdyagfpjf below Northwest HospitalComment on above:Result Comment: Unable to perform testing; no specimen received. To perform testing the specimen will need to be recollected. No specPerformed By: #### REJEC #### [facility] [address] [place] [address] [phone] TestCXURNNorthwest HospitalComment on above: Performed By: #### REJEC #### [facility] [address] [place] [id number] [phone] Cholesterol, Directon 79-36-9730Boyznssdunn in LDL [Mass/Vol]84 mg/dL<100BON [facility] HOSPITALBON SECLUTHERAN HOSPITALCBC with Auto Differentialon [id number] Eos #0.10BON [facility] WHITE HOSPITALY HEALTHAbsolute Lymph #1.40BON SEC[facility] WHITE HOSPITALY HEALTHAbsolute [place] #0.30[facility] Basophils (Bld) [#/Vol]0.00 10*3/uLBON [facility] HOSPITALBasophils/100 WBC (Bld)1 %0 - 2 %BON [facility] HOSPITALDifferential TypeYESBON SEC[facility] BERGER HOSPITALEosinophils/100 WBC (Bld)1 %0 - 5 %BON [facility] BOARDMAN HOSPITALHematocrit (Bld) [Volume fraction]35.7 %Low36 - 46 %BON SECLUTHERAN HOSPITALHemoglobin (Bld) [Mass/Vol]12.0 g/dL12.0 - 16.0 g/dLBON SECLUTHERAN HOSPITALInterpretation and review of laboratory resultsAbnormalBON SECLUTHERAN HOSPITALLymphocytes/100 WBC (Bld)25 %15 - 40 %B[address] [facility] HOSPITALH (RBC) [Entitic mass]28.0 pg26 - 34 pgBON SECCHERRINGTON HOSPITALHC (RBC) [Mass/Vol]33.7 g/dL31 - 37 g/dLBON SECCHERRINGTON HOSPITALV (RBC) [Entitic vol]83.3 fL80 - 100 fLBON SECLUTHERAN HOSPITALMonocytes/100 WBC (Bld)5 %4 - 8 %BON SECLUTHERAN HOSPITALPlatelet distribution width (Bld) [Ratio]16.4 %High12.1 - 15.2 %[facility] Platelets (Bld) [#/Vol]168 10*3/uLBON SECOURS [facility]IO[facility]ALTH BERGER HOSPITALRBC (Bld) [#/Vol]4.29 10*6/uL4.0 - 5.2 m/uLBON [facility]ST[facility] HEALTHSegmented neutrophils/100 WBC (Bld) 68 %47 - 75 %BON [facility] HOSPITALSegs Absolute3.90BON [facility] WBC (Bld) [#/Vol]5.7 10*3/uLBON SECLUTHERAN HOSPITALBON [facility] Comprehensive Metabolic Panelon [id number] [Mass/Vol]4.2 g/dL3.5 - 5.2 g/dLBON MER[facility] HE[facility] ST. ELIZABETH BOARDMAN HOSPITALALP (Bld) [Catalytic activity/Vol]88 U/L35 - 104 U/L B[facility] HOSPITALALT [Catalytic activity/Vol]29 U/L5 - 33 U/LBON [facility] BOARDMAN HOSPITALAnion gap [Moles/Vol]11 mmol/L9 - 17 mmol/LBON [facility] AST [Catalytic activity/Vol]27 U/L<32BON [facility] BOARDMAN HOSPITALBilirubin [Mass/Vol]0.65 mg/dL0.30 - 1.20 mg/dLBON [facility] BOARDMAN HOSPITALCalcium [Mass/Vol] 9.1 mg/dL8.6 - 10.4 mg/dLBON [facility] ST[facility] BOARDMAN HOSPITALChloride [Moles/Vol]101 mmol/L 98 - 107 mmol/LBON [facility] BOARDMAN HOSPITALCO2 [Moles/Vol]28 mmol/L20 - 31 mmol/LBON [facility] BO[facility]DMAN HOSPITALCreatinine [Mass/Vol]1.04 mg/dLHigh0.50 - 0.90 mg/dLBON [facility] BOARDMAN HOSPITALFree PSA/Total PSA [Mass fraction]6.8 g/dL6.4 - 8.3 g/dLBON [facility] ST[facility] BOARDMAN HOSPITALGFR >60>60 mL/minBON [facility] COMM[facility]ITY HOSPITALGFR Non- Jtquyxfd34 mL/minLow>60BON [facility] BOARDMAN HOSPITALGFR/1.73 sq M.predicted MDRD (S/P/Bld) [Vol rate/Area][facility] HOSPITALComment on above:Average GFR for 40-49 years old: 99 mL/min/1.73sq m Chronic Kidney Disease: <60 mL/min/1.73sq m Kidney failure: <15 mL/min/1.73sq m eGFR calculated using average adult body mass. Additional eGFR calculator available at: http://www.Rapid RMS.com/multiple_crcl_2012.htm Glucose [Mass/Vol]103 mg/pDKnrd59 - 99 mg/dLBON [facility] Interpretation and review of laboratory resultsAbRiverside Tappahannock [facility] Potassium [Moles/Vol]3.9 mmol/L3.7 - 5.3 mmol/LBON [facility] [address] ELIZABETH BOARDMAN HOSPITALSodium [Moles/Vol]140 mmol/L135 - 144 mmol/LBON [facility] HOSPITALUrea nitrogen (BldV) [Mass/Vol]13 mg/dL6 - 20 mg/dLBON [facility] HOSPITALUrea nitrogen/Creatinine (Bld) [Mass ratio]13BON [facility]ENTERLessonwriter WHITE HOSPITALQualMetrix [facility] HOSPITALHIV Screenon [id number] Ag/AbNon-ReactiveNONREACTIVEReston Hospital Center on above:No laboratory evidence of HIV infection. If acute HIV infection is suspected, consider testing for HIV-1 RNA. PHANEUF HOSPITALSwapper TradeLipid Panelon [id number] [Mass/Vol]184 mg/dL <200BON [facility] on above: Cholesterol Guidelines: <200 Desirable 200-240 Borderline >240 Undesirable Cholesterol in HDL [Mass/Vol]30 mg/dLLow>40PHANEUF HOSPITALLessonwriter [facility] on above: HDL Guidelines: <40 Undesirable 40-59 Borderline >59 Desirable Cholesterol.total/Cholesterol in HDL [Mass ratio]6.1 {ratio}High<5BON [facility] YooDealInterpretation and review of laboratory resultsAbnormCentra Virginia Baptist HospitalLDL Cholesterol0 - 130 mg/dLBON [facility] on above:Calculation not valid for Triglyceride value greater than 400 mg/dL. Direct LDL reflexed LDL Guidelines: <100 Desirable 100-129 Near to/above Desirable 130-159 Borderline >159 Undesirable Direct (measured) LDL and calculated LDL are not interchangeable tests. Triglyceride [Mass/Vol]460 mg/dLHigh<150BON [facility] MEDICAL CENTERPerSayClovis Baptist Hospital on above: Triglyceride Guidelines: <150 Desirable 150-199 Borderline 200-499 High >499 Very high Based on AHA Guidelines for fasting triglyceride, July 2012. PHANEUF HOSPITALSwapper TradeNo Panel Informationon [id number] [facility] with Reflexon [id number] Qn0.99 m[IU]/LBON [facility] Urinalysis with MicroscopicOrdered By: Lita Wekes on 08-01-2021-[facility] Work Phone: amorphous, UANOT REPORTEDNoneMercy Health [...] Phone: leukocyte esterase Test strip Ql (U)NegativeNEGATIVE [facility] Work Phone: Mucus, UANOT REPORTEDNoneMercy Health Work Phone: Nitrite, UrineNegativeNEGATIVEMercy Health Work Phone: Other Observations UANOT REPORTEDNOT REQ.[facility] Work Phone: pH, UA6.0[facility] Work Phone: protein, UANegativeNEGATIVEMercy Health Work Phone: rBC, UANOT REPORTEDMercy Health Work Phone: renal Epithelial, UANOT REPORTED0 /HPFMercy Health Work Phone: Fpecific [place], UA1.020[facility] Work Phone: Trichomonas, UANOT REPORTEDNoneMercy Health Work Phone: Turbidity UAClearClearMercy Health Work Phone: Urinalysis CommentsMercy Health Work Phone: Urine HgbNegativeNEGATIVEMercy Health Work Phone: Urobilinogen, UrineNormalNormalMercy Health Work Phone: WBC, UANOT REPORTED0 /HPFMercy Health Work Phone: Yeast, UANOT REPORTEDNoneMercy Health Work Phone: [facility] Work Phone: Urinalysis with MicroscopicOrdered By: Lita Weeks on 07-11-2021-[facility] Work Phone: Nmorphous, UANOT REPORTEDNoneMercy Health Work Phone: bacteria, UA3+AbnormalNoneMercy Health Work Phone: Nilirubin UrineNegativeNEGATIVEMercy Health Work Phone: Dasts UANOT REPORTED/LPFMercy Health Work Phone: Golor, UAYellowYellowMercy Health Work Phone: Krystals, UANOT REPORTEDNone /HPFMercy Health Work Phone: Hpithelial Cells UA2 TO 5/HPFMercy Health Work Phone: Glucose, UrNegativeNEGATIVEMercy Health Work Phone: Interpretation and review of laboratory results AbnormalMercy Health Work Phone: Ketones Ql (U)NegativeNEGATIVEMercy Health Work Phone: leukocyte esterase Test strip Ql (U)2+AbnormalNEGATIVE [facility] Work Phone: Mucus, UANOT REPORTEDNoneMercy Health Work Phone: Nitrite, UrinePositiveAbnormalNEGATIVEMercy Health Work Phone: Other Observations UANOT REPORTEDNOT REQ.[facility] Work Phone: pH, UA6.0[facility] Work Phone: Protein, UANegativeNEGATIVEMercy Health Work Phone: ZBC, UANOT REPORTEDMercy Health Work Phone: renal Epithelial, UANOT REPORTED0 /HPFMercy Health Work Phone: specific [place], UA1.025[facility] Work Phone: Trichomonas, UANOT REPORTEDNoneMercy Health Work Phone: Turbidity UAHazyAbnormalClearMercy Health Work Phone: Urinalysis CommentsMercy Health Work Phone: Urine HgbNegativeNEGATIVEMercy Health Work Phone: Urobilinogen, UrineNormalNormalMercy Health Work Phone: WBC, UA20 TO 500 /HPFMercy Health Work Phone: Yeast, UANOT REPORTEDNoneMercy Health Work Phone: [facility] Work Phone: albuminOrdered By: Gregory Forbes on 63-12-4252Txdovch [Mass/Vol]4.2 g/dL3.5 - 5.2 g/dLMercy Health Work Phone: bUN & CreatinineOrdered By: Gregory Forbes on 47-75-7154Apzceepqut [Mass/Vol]1.18 mg/dLHigh0.50 - 0.90 mg/dLMemorial Health System Selby General HospitalRestalo Phone: GFR >60>60 mL/minMemorial Health System Selby General HospitalRestalo Phone: GFR Non- Cukunqus60 mL/minLow>60[facility] HospitalRestalo Phone: GFR/1.73 sq M.predicted MDRD (S/P/Bld) [Vol rate/Area] [facility] Hospital[facility] Finance Phone: comment on above:Average GFR for 40-49 years old: 99 mL/min/1.73sq m Chronic Kidney Disease: <60 mL/min/1.73sq m Kidney failure: <15 mL/min/1.73sq m eGFR calculated using average adult body mass. Additional eGFR calculator available at: http://www.[employer]/multiple_crcl_2012.htm GFR/1.73 sq M.predicted MDRD (S/P/Bld) [Vol rate/Area]NOT REPORTEDMemorial Health System Selby General HospitalRestalo Phone: Interpretation and review of laboratory results AbnormalMemorial Health System Selby General HospitalRestalo Phone: Urea nitrogen (BldV) [Mass/Vol]19 mg/dL6 - 20 mg/dL [facility] HospitalGen[facility] Finance Phone: calciumOrdered By: Gregory Forbes on [id number] [Mass/Vol]9.2 mg/dL8.6 - 10.4 mg/dLMemorial Health System Selby General HospitalRestalo Phone: electrolyte PanelOrdered By: Gregory Forbes on 76-70-6537Wxnbr gap [Moles/Vol]10 mmol/L9 - 17 mmol/LMercy Mamaherb Phone: chloride [Moles/Vol]103 mmol/L98 - 107 mmol/LMercy Mamaherb Phone: cO2 [Moles/Vol]25 mmol/L20 - 31 mmol/LMercy Health Work Phone: potassium [Moles/Vol]4.2 mmol/L3.7 - 5.3 mmol/LMercy Health Work Phone: sodium [Moles/Vol]138 mmol/L135 - 144 mmol/LMercy Health Work Phone: MagnesiumOrdered By: Gregory Forbes on 05-20-2021 Magnesium [Mass/Vol]2.2 mg/dL1.6 - 2.6 mg/dLMercy Health Work Phone: No Panel InformationOrdered By: Gregory Forbes on 04-37-3654Fidwt Health Work Phone: phosphorusOrdered By: Gregory Forbes on 05-20-2021 Phosphate [Mass/Vol]3.7 mg/dL2.6 - 4.5 mg/dLClermont County Hospital Health Work Phone: UrinalysisOrdered By: Gregory Forbes [...] Phone: protein, UATRACEAbnormalNEGATIVEMercy Health Work Phone: specific [place], UA1.020[facility] Work Phone: Turbidity UACLEARCLEARMercy Health Work Phone: Urinalysis CommentsMer Health Work Phone: Urine HgbNegativeNEGATIVEClermont County Hospital [facility] Work Phone: Urobilinogen, UrineNormalNormalClermont County Hospital [facility] Work Phone: [facility] Work Phone: [phone] By: Pattie Hull on 01-22-2021 SARS-CoV-2 (COVID-19) RNA SHARMIN+probe Ql (Unsp spec)[facility] [employer] Work Phone: [phone]-[id number] (COVID-19) RNA SHARMIN+probe Ql (Unsp spec)Not detectedNot DetectedClermont County Hospital BooknGo Work Phone: comment on above: The specimen [...] this assay. Fact sheet for Healthcare Providers: https://www.fda.gov/media/740193/download Fact sheet for Patients: https://www.fda.gov/media/737756/download METHODOLOGY: RT-PCR Source.THROATClermont County Hospital BooknGo Work Phone: [phone], PCRon [id number]-CoV-2, RapidNot DetectedNot DetectedMerRestalo Phone: comment on above: Rapid NAAT: The [...] management decisions. Fact sheet for Healthcare Providers: https://www.fda.gov/media/907931/download Fact sheet for Patients: https://www.[employer]gov/media/476218/download Methodology: Isothermal Nucleic Acid Amplification Source.[facility] CenterRestalo Phone: Otheron [phone]-CoV-2Mmercer county community hospital Mamaherb Phone: cBC Auto Differentialon [id number] (Bld) [#/Vol]0.10 10*3/[facility], KYBasophils/100 WBC (Bld)1 %0 - 2 %[facility], KYDifferential TypeYESMMartins Ferry Hospital, KYEosinophils (Bld) [#/Vol] 0.10 10*3/[facility], KYEosinophils/100 WBC (Bld)1 %0 - 5 %[facility], KYErythrocyte distribution width (RBC) [Ratio]16.3 %High12.1 - 15.2 %[facility], KYHematocrit (Bld) [Volume fraction]36.5 %36 - 46 %[facility], KYHemoglobin (Bld) [Mass/Vol]12.5 g/dL12 - 16 g/dLCleveland Clinic [facility], [place] Interpretation and review of laboratory resultsAbnormalMercy Health- [place], [place] Lymphocytes (Bld) [#/Vol]1.90 10*3/[facility]- [place], KYLymphocytes/100 WBC (Bld)25 %15 - 40 %[facility]- [place], KYMCH (RBC) [Entitic mass]28.8 pg26 - 34 pg [facility]- [place], KYMCHC (RBC) [Mass/Vol]34.3 g/dL31 - 37 g/dLCincinnati Va Medical Center- [place], TIFFMCV (RBC) [Entitic vol]84.0 fL80 - 100 fLCincinnati Va Medical Center- [place], KYMonocytes (Bld) [#/Vol]0.40 10*3/[facility]- [place], KYMonocytes/100 WBC (Bld)5 %4 - 8 %[facility]- [place], TIFFPlatelet mean volume (Bld) [Entitic vol]NOT REPORTED6 - 12 fLCincinnati Va Medical Center- [place], KYPlatelets (Bld) [#/Vol]167 10*3/[facility]- [place], KYPlatelets (Bld) [#/Vol]NOT REPORTEDC[facility]- [place], KYRBC (Bld) [#/Vol]4.35 10*6/uL4 - 5.2 m/[facility]- [place], KYRBC morphology finding Nom (Bld)NOT REPORTEDCincinnati [facility] [place], TIFFSegmented neutrophils/100 WBC (Bld)68 %47 - 75 %[facility], TIFFSegs Absolute5.40[facility]- [place], KYWBC (Bld) [#/Vol]7.8 10*3/[facility]- [place], KYWBC (Bld) [#/Vol]NOT REPORTEDper 100 WBCCincinnati Va [facility] Center- [place], KYWBC MorphologyNOT REPORTEDC[facility]- [place], KYComprehensive Metabolic Panel w/ Reflex to MGon [id number] [Mass/Vol]4.4 g/dL3.5 - 5.2 g/dLCincinnati Va Medical Center- [place], KYAlbumin/Globulin [Mass ratio]NOT REPORTEDCincinnati [facility]- [place], KYALP [Catalytic activity/Vol]117 U/LHigh35 - 104 U/LMKettering Health [place]- [place], KYALT [Catalytic activity/Vol]41 U/LHigh5 - 33 U/LMmercer county community hospital Health- [place], KYAnion gap [Moles/Vol]10 mmol/L9 - 17 mmol/LMmercer county community hospital Health- [place], KYAST [Catalytic activity/Vol]39 U/LHigh<32[facility]- [place], KYBilirubin Ql (U)0.52 mg/dL0.3 - 1.2 mg/dLCincinnati Va Medical Center- [place], KYBun/Cre Hotgi83Ehukk Health- [place], KYCalcium [Mass/Vol]9.0 mg/dL8.6 - 10.4 mg/dLCincinnati [facility]riners Hospital [place], KYChloride [Moles/Vol]101 mmol/L98 - 107 mmol/LMKettering Health [place]- [place], KYCO2 [Moles/Vol]26 mmol/L20 - 31 mmol/L [facility]- [place], KYCreatinine [Mass/Vol]1.32 mg/dLHigh0.5 - 0.9 mg/dLCincinnati Va Medical Center- [place], KYGFR Xosusscq25 mL/minLow>60[facility]- [place], KYGFR Non- Wgrohyuj36 mL/minLow>60[facility]- [place], KYGFR/1.73 sq M predicted among non-blacks MDRD (S/P/Bld) [Vol rate/Area][facility], KYComment on above: Average GFR for 40-49 years old: 99 mL/min/1.73sq m Chronic Kidney Disease: <60 mL/min/1.73sq m Kidney failure: <15 mL/min/1.73sq m eGFR calculated using average adult body mass. Additional eGFR calculator available at: http://www.[employer]/multiple_crcl_2012.htm GFR/1.73 sq M predicted among non-blacks MDRD (S/P/Bld) [Vol rate/Area]NOT REPORTEDC[facility] Clinic [facility], KYGlucose [Mass/Vol]173 mg/mVRddi52 - 99 mg/dLCleveland Clinic [facility], KYInterpretation and review of laboratory resultsAbnormalC[facility]innati [facility] [place], KYPotassium [Moles/Vol]3.9 mmol/L3.7 - 5.3 mmol/LMK[facility]tering [facility] [place]- [place], KYProtein [Mass/Vol]7.3 g/dL6.4 - 8.3 g/dLMercy Health- [place], KYSodium [Moles/Vol] 137 mmol/L135 - 144 mmol/LMercy Health- [place], KYUrea nitrogen [Mass/Vol]15 mg/dL6 - 20 mg/dLMercy Health- [place], KYOtheron [id number] granulocytes (Bld) [#/Vol]NOT REPORTEDMercy Health- [place], KYSedimentation Rateon [id number] Rate15 mm0 - 20 mmMercy Health- [place], KYUrinalysis, reflex to microscopicon 09-16-2020 Bilirubin UrineNegativeNEGATIVEMercy Health- [place], KYColor, UAYELLOWYELLOWMercy Health- [place], KYGlucose, UrNegativeNEGATIVEMer[facility]- [place], KYInterpretation and review of laboratory resultsAbnormalMercy Health- [place], KYKetones Ql (U)Negative NEGATIVEMercy [facility]- [place], KYLeukocyte esterase Test strip Ql (U)NegativeNEGATIVE [facility]- [place], KYNitrite, UrineNegativeNEGATIVEMercy Health- [place], KYpH, UA5.0 [facility] [place], KYProtein (U) [Mass/Vol]TRACEAbnormalNEGATIVEMercy Health- [place], KYSpecific [place], UA1.025[facility]- [place], KYTurbidity UACLEARCLEARMercy Health- [place], KYUrinalysis CommentsMercy Health- [place], KYUrine HgbNegativeNEGATIVE [facility]- [place], KYUrobilinogen, UrineNormalNormalMercy Health- [place], KYC- Reactive Proteinon [id number] [Mass/Vol]6 mg/LHigh0 - 5 mg/LMercy Health- [place], KYInterpretation and review of laboratory resultsAbnormalMercy Health- [place], [place] CBC With Auto Differentialon [id number] (Bld) [#/Vol]0.00 10*3/uLMercy Health- [place], KYBasophils/100 WBC (Bld)1 %0 - 2 %[facility]- [place], KYDifferential TypeYESMercy Health- [place], KYEosinophils (Bld) [#/Vol]0.10 10*3/uLMercy Health- [place], KYEosinophils/100 WBC (Bld)1 %0 - 5 %[place], KYErythrocyte distribution width (RBC) [Ratio]16.2 %High12.1 - 15.2 %[place], [place] Hematocrit (Bld) [Volume fraction]35.4 %Low36 - 46 %[place], [place] Hemoglobin (Bld) [Mass/Vol]12.2 g/dL12 - 16 g/dLDayton, [place] Interpretation and review of laboratory resultsAbnormalDay[place], [place] Lymphocytes (Bld) [#/Vol]1.60 10*3/[facility], PRLymphocytes/100 WBC (Bld)28 %15 - 40 %[place], KYMCH (RBC) [Entitic mass]29.1 pg26 - 34 pg [place], KYMCHC (RBC) [Mass/Vol]34.5 g/dL31 - 37 g/dLDayton, KYMCV (RBC) [Entitic vol]84.2 fL80 - 100 [facility], TIFFMonocytes (Bld) [#/Vol]0.40 10*3/[facility], TIFFMonocytes/100 WBC (Bld)6 %4 - 8 %[facility] PRPlatelet mean volume (Bld) [Entitic vol]NOT REPORTED6 - 12 fLCleveland Clinic Hillcre[facility] Hospital, KYPlatelets (Bld) [#/Vol]160 10*3/[facility], KYPlatelets (Bld) [#/Vol]NOT REPORTEDC[facility] Clinic [facility], PRRBC (Bld) [#/Vol]4.20 10*6/uL4 - 5.2 m/[facility], PRRBC morphology finding Nom (Bld)NOT REPORTEDDay[place], KYSegmented neutrophils/100 WBC (Bld)64 %47 - 75 %[facility], PRSegs Absolute3.80[facility], KYWBC (Bld) [#/Vol]5.8 10*3/[facility], PRWBC (Bld) [#/Vol]NOT REPORTEDper 100 WBCCincinnati Va Medical Center- [place], KYWBC MorphologyNOT REPORTEDCincinnati [facility]- [place], KYOtheron 30-92-9932Atazcmlg granulocytes (Bld) [#/Vol]NOT REPORTED0 %[facility]- [place], KYSedimentation Rate on 09-14-3495Oof Rate10 mm0 - 20 mmClermont County Hospital Health- [place], KYC-Reactive Proteinon [id number] [Mass/Vol]2 mg/L0 - 5 mg/LMKettering Health [place]- [place], KYCBC With Auto Differentialon 09-84-1688Kbudbpcsp (Bld) [#/Vol]0.10 10*3/uLCincinnati Va Medical Center- [place], [place] Basophils/100 WBC (Bld)1 %0 - 2 %[facility]- [place], KYDifferential TypeYESMKettering Health [place]- [place], KYEosinophils (Bld) [#/Vol]0.10 10*3/[facility]- [place], [place] Eosinophils/100 WBC (Bld)1 %0 - 5 %[facility]- [place], KYErythrocyte distribution width (RBC) [Ratio]16.8 %High12.1 - 15.2 %[facility]- [place], KYHematocrit (Bld) [Volume fraction]40.0 %36 - 46 %[facility]- [place], KYHemoglobin (Bld) [Mass/Vol] 13.5 g/dL12 - 16 g/dLCincinnati Va Medical Center- [place], KYInterpretation and review of laboratory resultsAbnormalCincinnati [facility]- [place], KYLymphocytes (Bld) [#/Vol]1.70 10*3/uLCincinnati Va Medical Center- [place], KYLymphocytes/100 WBC (Bld)17 %15 - 40 %[facility]- [place], KYMCH (RBC) [Entitic mass]29.1 pg26 - 34 pgCincinnati [facility]- [place], KYMCHC (RBC) [Mass/Vol] 33.8 g/dL31 - 37 g/dLCincinnati Va Medical Center- [place], KYMCV (RBC) [Entitic vol]86.0 fL80 - 100 fLCincinnati Va Medical Center- [place], KYMonocytes (Bld) [#/Vol]0.50 10*3/uLMercy Health- [place], [place] Monocytes/100 WBC (Bld)5 %4 - 8 %[facility]- [place], KYPlatelet mean volume (Bld) [Entitic vol]NOT REPORTED6 - 12 fLMer Health- [place], KYPlatelets (Bld) [#/Vol]NOT REPORTEDMer Health- [place], KYPlatelets (Bld) [#/Vol]208 10*3/uLClermont County Hospital Health- [place], KYRBC (Bld) [#/Vol]4.65 10*6/uL4 - 5.2 m/uLMemorial Health System Selby General Hospitalcy Health- [place], KYRBC morphology finding Nom (Bld)NOT REPORTEDClermont County Hospital [facility]- [place], KYSegmented neutrophils/100 WBC (Bld)76 %High47 - 75 %[facility]- [place], KYSegs Absolute7.70HighMer Health- [place], TIFFWBC (Bld) [#/Vol]NOT REPORTEDper 100 WBCClermont County Hospital [facility]- [place], KYWBC (Bld) [#/Vol] 10.0 10*3/uLClermont County Hospital [facility]- [place], KYWBC MorphologyNOT REPORTEDClermont [facility]- [place], [place] Otheron 10-96-7749Owodkyud granulocytes (Bld) [#/Vol]NOT REPORTED0 %[facility]- [place], KYSedimentation Rateon 84-09-0095Xdo Rate6 mm0 - 20 mmClermont County Hospital [facility]- [place], KYProtein / creatinine ratio, urineon 71-16-0257Fdhcpgyyba, Ur101.2 mg/dL28 - 217 mg/dLClermont County Hospital [facility]- [place], KYProtein (U) [Mass/Vol]8 mg/dLClermont County Hospital [facility]- [place], [place] Comment on above:No normal range established.Urine Total Protein Creatinine Ratio0.08[facility]cy [facility]- [place], KYUrinalysison 05-06-6481Vssrewyha UrineNegative NEGATIVEClermont County Hospital [facility]- [place], KYColor, UAYELLOWYELLOWMer Health- [place], KYGlucose, Ur 100 mg/dLAbnormalNEGATIVEMemorial Health System Selby General Hospitalcy Health- [place], KYInterpretation and review of laboratory resultsAbnormalMer Health- [place], KYKetones Ql (U)NegativeNEGATIVE [facility]- [place], KYLeukocyte esterase Test strip Ql (U)NegativeNEGATIVEMercy Health- [place], KYNitrite, UrineNegativeNEGATIVEMercy Health- [place], KYpH, UA6.0[facility]- [place], KYProtein (U) [Mass/Vol]NegativeNEGATIVEMercy Health- [place], KYSpecific [place], UA1.020[facility]- [place], KYTurbidity UACLEARCLEARMer Health- [place], [place] Urinalysis CommentsMer Health- [place], KYUrine HgbNegativeNEGATIVEClermont County [facility]- [place], KYUrobilinogen, UrineNormalNormalClermont County [facility]- [place], KYComprehensive Metabolic Panelon 26-40-0952Zcspoyn [Mass/Vol]4.4 g/dL3.5 - 5.2 g/dLClermont County Hospital [facility]- [place], [place] Albumin/Globulin [Mass ratio]NOT REPORTEDClermont County Hospital [facility]- [place], KYALP [Catalytic activity/Vol]87 U/L35 - 104 U/LMcleveland clinic [facility] generaly Health- [place], KYALT [Catalytic activity/Vol] 21 U/L5 - 33 U/LMcleveland clinic [facility] generaly [facility]- [place], KYAnion gap [Moles/Vol]10 mmol/L9 - 17 mmol/L [facility]- [place], KYAST [Catalytic activity/Vol]22 U/L<32[facility]- [place] Bilirubin Ql (U)0.32 mg/dL0.3 - 1.2 mg/dLClermont County Hospital [facility]- [place], KYBun/Cre Ratio18 [facility]- [place], KYCalcium [Mass/Vol]10.1 mg/dL8.6 - 10.4 mg/dLClermont County Hospital [facility]- [place], KYChloride [Moles/Vol]104 mmol/L98 - 107 mmol/LMmer[facility]- [place], KYCO2 [Moles/Vol]26 mmol/L20 - 31 mmol/LMcleveland clinic [facility] generaly [facility]- [place], KYCreatinine [Mass/Vol]1.37 mg/dLHigh0.5 - 0.9 mg/dLClermont County Hospital [facility]- [place], KYGFR Vriddqrf74 mL/minLow>60 [facility]- [place], KYGFR Non- Jbnskewm06 mL/minLow>60[facility]- [place] GFR/1.73 sq M predicted among non-blacks MDRD (S/P/Bld) [Vol rate/Area]NOT REPORTEDClermont County Hospital Health- [place], KYGFR/1.73 sq M predicted among non-blacks MDRD (S/P/Bld) [Vol rate/Area][facility], TIFFComment on above:Average GFR for 40-49 years old: 99 mL/min/1.73sq m Chronic Kidney Disease: <60 mL/min/1.73sq m Kidney failure: <15 mL/min/1.73sq m eGFR calculated using average adult body mass. Additional eGFR calculator available at: http://www.[employer]/multiple_crcl_2011.htm Glucose [Mass/Vol]160 mg/xXSrpp29 - 99 mg/dLCleveland Clinic [facility], PRInterpretation and review of laboratory resultsAbnormalC[facility] Clinic [facility], PRPotassium [Moles/Vol]4.6 mmol/L3.7 - 5.3 mmol/LMMartins Ferry Hospital, KYProtein [Mass/Vol]7.4 g/dL6.4 - 8.3 g/dLCleveland Clinic [facility], PRSodium [Moles/Vol]140 mmol/L135 - 144 mmol/[facility], KYUrea nitrogen [Mass/Vol]24 mg/dLHigh6 - 20 mg/dLCleveland Clinic [facility], PRHemoglobin A1Con 29-61-3707Hyvhhcb [Mass/Vol]123 mg/dLCleveland Clinic [facility], PRComment on above:The ADA and AACC recommend providing the estimated average glucose result to permit better patient understanding of their HBA1c result. HbA1c (Bld) [Mass fraction]5.9 %4 - 6 %[place], KYLDL Cholesterol, Directon 66-77-8671Qogvntritsp in LDL [Mass/Vol]58 mg/dL<100[place], [place] Lipid Panelon 27-13-9996Yjmrgylajfu [Mass/Vol]194 mg/dL<200[place], [place] Comment on above: Cholesterol Guidelines: <200 Desirable 200-240 Borderline >240 Undesirable Cholesterol in HDL [Mass/Vol]27 mg/dLLow>40[facility] PRComment on above: HDL Guidelines: <40 Undesirable 40-59 Borderline >59 Desirable Cholesterol in LDL [Mass/Vol]0 - 130 mg/dLCleveland Clinic Hillcre[facility] Hospital, PRComment on above: Calculation not valid for Triglyceride value greater than 400 mg/dL. Direct LDL reflexed LDL Guidelines: <100 Desirable 100-129 Near to/above Desirable 130-159 Borderline >159 Undesirable Direct (measured) LDL and calculated LDL are not interchangeable tests. Cholesterol in VLDL [Mass/Vol]NOT REPORTED1 - 30 mg/dLCleveland Clinic [facility], [place] Cholesterol.total/Cholesterol in HDL [Mass ratio]7.2 {ratio}High<5[facility], PRInterpretation and review of laboratory resultsAbnormWood County Hospital, PRTriglyceride [Mass/Vol]1112 mg/dLHigh<150[facility], KYComment on above: Triglyceride Guidelines: <150 Desirable 150-199 Borderline 200-499 High >499 Very high Based on AHA Guidelines for fasting triglyceride, July 2012. Patient Fasting?on 72-15-0944Wdfpdbu Fasting?YESC[facility] Clinic [facility], PRVitamin D 25 Hydroxyon 50-97-2470Mlq D, 25-Jpodvlf43.2 ng/mL30 - 100 ng/mLCleveland Clinic Hillcre[facility] Hospital, PRComment on above: Reference Range: Vitamin D status Range Deficiency <20 ng/mL Mild Deficiency 20-30 ng/mL Sufficiency 30-100 ng/mL Toxicity >100 ng/mL C-Reactive Proteinon 66-05-5336MIU [Mass/Vol]6.2 mg/LHigh0 - 5 mg/LMMartins Ferry Hospital, PRInterpretation and review of laboratory resultsAbnoBridgewater, KYHemoglobin M6YFaiyisl By: Janel Allen on 53-68-8740Allulym [Mass/Vol] 108 mg/dLMemorial Health System Selby General HospitalRestalo Phone: comment on above:The ADA and AACC recommend providing the estimated average glucose result to permit better patient understanding of their HBA1c result. HbA1c (Bld) [Mass fraction]5.4 %4.8 - 5.9 %[facility] Phone: Homocysteine, SerumOrdered By: Janel Allen on 41-57-2357Xpcnuvdskpnv7 umol/L<15.0[facility] HospitalRestalo Phone: TSH without ReflexOrdered By: Janel Allen on 10-79-6979QSP Qn1.03 m[IU]/LMercy BooknGo Work Phone: Vitamin B12 & FolateOrdered By: Janel Allen on 30-16-7157Budkeaacp (Vitamin B12) [Mass/Vol]292 pg/mL232 - 1245 pg/mLReDent Nova Work Phone: Folate13.8 ng/mL>4.8[facility] General HospitalAria Networks Work Phone: XR CERVICAL SPINE (4-5 VIEWS)on 68-59-0826Rbfx degenerative changes cervical spine not unusual for age. Refer to the [facility] Imaging services 02/03/2019 with some of the findings discussed above. [facility] HospitalHENRIAM: XR CERVICAL SPINE (4-5 VIEWS) HISTORY: Reason for exam:->history MRSA discitis of thoracicregion. New tingling and numbness of fingers COMPARISON: MRI cervical spine [facility] 02/03/2019, cervical spine series 04/03/2010. The [...] is normal. Swimmer's lateral viewshows no additional abnormality.[facility] HospitalDannielle Mhpn Incoming Radiant Results From [employer] - 07/29/2019 10:05 AM EDT EXAM: XR CERVICAL SPINE (4-5 VIEWS) HISTORY: Reason for exam:->history MRSA discitis of thoracic region. New tingling and numbness of fingers COMPARISON: MRI cervical spine [facility] 02/03/2019, cervical spine series 04/03/2010. The [...] with some of the findings discussed above. [facility], PRC-Reactive ProteinOrdered By: Azalea Knight on 07-28-2019 CRP [Mass/Vol]6.4 mg/LHigh0 - 5 mg/LMKettering Health Dayton- [place], PRInterpretation and review of laboratory resultsAbnormalCleveland Clinic Hillcrest Hospital, PRCBC With Auto DifferentialOrdered By: Azalea Knight on 72-46-1596Xaejqoye Eos #0.10[facility]- [place], PRAbsolute Immature GranulocyteNOT REPORTEDCleveland Clinic Hillcrest Hospital, PR Absolute Lymph #2.10[facility]- [place], PRAbsolute [place] #0.50[facility], PR Basophils (Bld) [#/Vol]0.00 10*3/uLCincinnati Va Medical Center- [place], KYBasophils/100 WBC (Bld)1 %0 - 2 %[facility]- [place], PRDifferential TypeYESMKettering Health [place]- [place], [place] Eosinophils/100 WBC (Bld)1 %0 - 5 %[facility]- [place], PRErythrocyte distribution width (RBC) [Ratio]14.5 %12.1 - 15.2 %[facility]- [place], PRHematocrit (Bld) [Volume fraction]38.1 %36 - 46 %[facility]- [place], PRHemoglobin (Bld) [Mass/Vol] 12.9 g/dL12 - 16 g/dLCleveland Clinic Hillcrest Hospital, PRImmature GranulocytesNOT REPORTED0 % [facility]- [place], PRLymphocytes/100 WBC (Bld)34 %15 - 40 %[facility]- [place], PR MCH (RBC) [Entitic mass]29.5 pg26 - 34 pgCincinnati Va Medical Center- [place], KYMCHC (RBC) [Mass/Vol]33.9 g/dL31 - 37 g/dLCincinnati Va Medical Center- [place], KYMCV (RBC) [Entitic vol]87.1 fL80 - 100 fLMercy Health- [place], KYMonocytes/100 WBC (Bld)8 %4 - 8 %[facility]- [place], KYMPVNOT REPORTED6 - 12 fLCincinnati Va Medical Center- [place], KYNRBC AutomatedNOT REPORTEDper 100 WBCCincinnati Va Medical Center- [place], KYPlatelet EstimateNOT REPORTEDCincinnati Va [facility] Center- [place], [place] Platelets (Bld) [#/Vol]222 10*3/uLCincinnati Va Medical Center- [place], KYRBC (Bld) [#/Vol]4.38 10*6/uL4 - 5.2 m/uLCincinnati Va Medical Center- [place], KYRBC morphology finding Nom (Bld)NOT REPORTEDCincinnati [facility] Center- [place], TIFFSegmented neutrophils/100 WBC (Bld)56 %47 - 75 % [facility]- [place], TIFFSegs Absolute3.50[facility]- [place], KYWBC (Bld) [#/Vol]6.2 10*3/uLCincinnati Va Medical Center- [place], KYWBC MorphologyNOT REPORTEDC[facility]- [place], [place] Sedimentation RateOrdered By: Azalea Knight on 60-46-1307Rdm Rate19 mm0 - 30 mmCincinnati Va [facility] Center- [place], PRC-Reactive Proteinon 95-24-8940AHC [Mass/Vol]7.3 mg/LHigh0 - 5 mg/LMKettering Health [place]- [place], PRInterpretation and review of laboratory results AbnormalC[facility]- [place], PRAlbuminon 86-71-0002Mblngya [Mass/Vol]4.3 g/dL3.5 - 5.2 g/dLCincinnati Va Medical Center- [place], PRBUN & Creatinineon 26-42-2275Ihovyjimpx [Mass/Vol] 1.27 mg/dLHigh0.5 - 0.9 mg/dLCincinnati Va Medical Center- [place], PRGFR Wtnaxsww73 mL/min Low>60[facility]- [place], KYGFR Non- Dotvsouq48 mL/minLow>60[facility]- [place], KYGFR/1.73 sq M predicted among non-blacks MDRD (S/P/Bld) [Vol rate/Area]NOT REPORTEDCincinnati Va Medical Center- [place], KYGFR/1.73 sq M predicted among non-blacks MDRD (S/P/Bld) [Vol rate/Area][facility], PRComment on above:Average GFR for 40-49 years old: 99 mL/min/1.73sq m Chronic Kidney Disease: <60 mL/min/1.73sq m Kidney failure: <15 mL/min/1.73sq m eGFR calculated using average adult body mass. Additional eGFR calculator available at: http://www.[employer]/multiple_crcl_2012.htm Interpretation and review of laboratory resultsAbnormalMer Health- [place], KYUrea nitrogen [Mass/Vol]18 mg/dL6 - 20 mg/dLClermont County Hospital Health- [place], KYCalciumon 06-17-2019 Calcium [Mass/Vol]10.4 mg/dL8.6 - 10.4 mg/dLClermont County Hospital [facility]- [place], KYElectrolyte Panelon 70-90-4770Mymmp gap [Moles/Vol]13 mmol/L9 - 17 mmol/LMcleveland clinic [facility] generaly [facility]- [place], KYChloride [Moles/Vol]103 mmol/L98 - 107 mmol/LMcleveland clinic [facility] generaly [facility]- [place], KYCO2 [Moles/Vol]24 mmol/L20 - 31 mmol/LMcleveland clinic [facility] generaly [facility]- [place], KYPotassium [Moles/Vol]3.8 mmol/L3.7 - 5.3 mmol/LMercy Health- [place], KYSodium [Moles/Vol]140 mmol/L135 - 144 mmol/LMcleveland clinic akron generaly Health- [place], KYHemoglobin and Hematocrit, Bloodon 06-17-2019 Hematocrit (Bld) [Volume fraction]35.4 %Low36 - 46 %[facility], [place] Hemoglobin (Bld) [Mass/Vol]12.1 g/dL12 - 16 g/dLCincinnati Va Medical Center- [place], [place] Interpretation and review of laboratory resultsAbnormFrye Regional Medical [facility]- [place], [place] Magnesiumon 62-51-1827Uibmqecyp [Mass/Vol]2.3 mg/dL1.6 - 2.6 mg/dLClermont County Hospital [facility]- [place], KYMicroscopic Urinalysison 00-13-7769Wdouzmlqe, UANOT REPORTEDNoneMey Health- [place], KYBacteria, UA1+AbnormalNoneMerc Health- [place], KYCasts UANOT REPORTED /LPFMercy Health- [place], KYCrystals UANOT REPORTEDNone /HPFClermont County Hospital [facility]- [place], [place] Epithelial Cells UA2 TO [...] Health- [place], [place]- [facility]- [place], KYPhosphoruson 15-42-2716Dasjxqenk [Mass/Vol]3.0 mg/dL2.6 - 4.5 mg/dLMercy Health- [place], KYProtein / creatinine ratio, urineon 06-17-2019 Creatinine, Ur228.2 mg/wGMxuq18 - 217 mg/dLMercy Health- [place], KYInterpretation and review of laboratory resultsAbnormalMercy Health- [place], KYProtein (U) [Mass/Vol]18 mg/dLMercy Health- [place], KYComment on above:No normal range established.Urine Total Protein Creatinine Ratio0.08[facility]- [place], [place] Sedimentation Rateon 26-79-9897Ggu Rate24 mm0 - 30 mmMercy Health- [place], [place] Urinalysison 85-42-4260Ytsevgbnw UrineNegativeNEGATIVEMercy Health- [place], KYColor, UAYELLOWYELLOWMercy Health- [place], KYGlucose, UrNegativeNEGATIVEMercy Health- [place], KYInterpretation and review of laboratory resultsAbnormalMercy Health- [place], [place] Ketones Ql (U)NegativeNEGATIVEMercy Health- [place], KYLeukocyte esterase Test strip Ql (U)NegativeNEGATIVEMercy Health- [place], KYNitrite, UrineNegativeNEGATIVEMercy Health- [place], KYpH, UA6.0[facility]- [place], KYProtein (U) [Mass/Vol]TRACEAbnormal NEGATIVEMercy Health- [place], KYSpecific [place], UA1.025[facility]- [place], [place] Turbidity UAHAZYAbnormalCLEARMercy Health- [place], KYUrinalysis CommentsMercy Health- [place], KYUrine HgbNegativeNEGATIVECleveland Clinic Hillcrest Hospital, KYUrobilinogen, Urine NormalNormalC[facility] Clinic [facility], KYMR CERVICAL SPINE WITHOUT CONTRASTon 02-03-2019 [...] be due to myelomalacia or cord edema. /[employer] Workstation ID: [id number] OhioHealthEXAMINATION: MR CERVICAL SPINE [...] creating probable mild left-sided neural foraminal stenosis. [facility], Rad In [facility] - 02/03/2019 11:02 AM EDT EXAMINATION: MR [...] be due to myelomalacia or cord edema. /[facility] Workstation ID: [id number] CERVICAL SPINE WITHOUT CONTRASTEXAMINATION: [...] MCCRAY on ThuFebruary 03, 2019 10:59:35 AM [facility] CampusComment on above:Order Comment: Reason for exam?:neck pain Injury/Trauma or Illness?:Illness/Other How long have you had these symptoms (acute/chronic)?:Chronic Type of Exam?:Initial Additional signs and symptoms?:neck pain, chronic hx of multiple old injuries Cult,Mycobacteriaon 45-12-4440Conc,MycobacteriaSpecimen Description .TISSUE EPIDURAL TISSUE Special Requests NOT REPORTED Direct Exam NO ACID FAST BACILLI SEEN (DIRECT SMEAR) Culture NO GROWTH 48 DAYS Report Status FINAL 10/11/2018[facility] CenterComment on above:Performed By: #### TROPI #### [employer] [address] [place] [address] Cult,MycobacteriaSpecimen Description .SPINE .TISSUE T4 LAMINA Special Requests NOT REPORTED Direct Exam NO ACID FAST BACILLI SEEN (DIRECT SMEAR) Culture NO GROWTH 48 DAYS Report Status FINAL 10/11/2018[facility] CenterComment on above:Performed By: #### LACWB #### [employer] [address] [place] [address] Cult,Funguson 31-15-9154Xpyg,FungusSpecimen Description .TISSUE EPIDURAL TISSUE Special Requests NOT REPORTED Culture NO GROWTH 34 DAYS Report Status FINAL 09/27/2018[facility] CenterComment on above:Performed By: #### LACWB #### [employer] [address] [place] [address] Cult,FungusSpecimen Description .SPINE .TISSUE T4 LAMINA Special Requests NOT REPORTED Culture NO GROWTH 34 DAYS Report Status FINAL 09/27/2018[facility] CenterComment on above:Performed By: #### LACWB #### [employer] [address] [place] [address] BUNon 30-20-5111Lmxb nitrogen mass conc20 mg/dL24 Brown StreetComment on above:Performed By: #### [id number] ####OVIDIO AvalosLljNjmg2298 [place], [place] [address]Wyotgcrrguox 16-73-4884Miqzdxerza mass conc1.3 mg/dLHigh0.5-1.1SBradley County Medical CenterComment on above: Performed By: #### [id number] ####OVIDIO Lwxqtvkz2704 [place] [address] eGFRon 40-06-1197wLAR AA54 mL/min/1.73 h5KvbyguTuhunzrehBradley County Medical Center Comment on above:Order Comment: Order added by Discern Expert.Performed By: #### [id number] ####OVIDIO Vhzebxnj5084 [place], [place] [address]SCB/1.73 sq M predicted among non-blacks MDRD vol rate/area (S/P/Bld)45 mL/min/1.73 t9SwrjchBaptist Health Medical CenterComment on above:Order Comment: Order added by Discern Expert.Performed By: #### [id number] ####OVIDIO Zauefdjm1447 [place], [place] [address]Rsjl Diffon 16-39-4222Bkfrqebfj Auto #/vol (Bld)0.0 E3/mcLNormal0.0-0.2SBradley County Medical CenterComment on above:Order Comment: Order Added by Discern Expert.Performed By: #### [id number] ####OVIDIO AvalosZunXeht8967 [place], [place] [address]Xcednpkap/100 WBC Auto (Bld)1.1 % Normal0.0-2.0[facility] SystemComment on above:Order Comment: Order Added by Discern Expert.Performed By: #### [id number] ####OVIDIO IypJqke2658 [place], [place] [address]Nad Absolute0.0 E3/mcLNormal0.0-0.7[facility] SystemComment on above:Order Comment: Order Added by Discern Expert.Performed By: #### [id number] ####OVIDIO AvalosWjtMhhr2359 [place], [place] [address]Ofkzrcqxead/100 WBC Auto (Bld)0.3 %Normal0.0-11.0[facility] SystemComment on above:Order Comment: Order Added by Discern Expert.Performed By: #### [id number] ####OVIDIO AvalosEcmOxfx1109 [place], [place] [address]Vkiovueunlb Auto #/vol (Bld)1.2 E3/mcLNormal1.2-3.4SKittitas Valley Healthcare SystemComment on above:Order Comment: Order Added by Discern Expert.Performed By: #### [id number] ####OVIDIO Valleo[address] [place], [place] [address]Rfydkafgwzz/100 WBC Auto (Bld)30.6 %Juqbnv62.0-55.0[facility] SystemComment on above:Order Comment: Order Added by Discern Expert.Performed By: #### [id number] ####OVIDIO Val[address] [place], [place] [address]Ymom Absolute0.4 E3/mcLNormal0.0-0.7 [facility] SystemComment on above:Order Comment: Order Added by Discern Expert.Performed By: #### [id number] ####OVIDIO [address] [place], [place] [address]Ecbdbbzib/100 WBC Auto (Bld)10.2 %High0.0-10.0[facility] CenterComment on above:Order Comment: Order Added by Discern Expert.Performed By: #### [id number] ####OVIDIO [address] [place], [place] [address]Zblsec Absolute2.3 E3/mcLNormal1.4-6.5SKittitas Valley Healthcare System Comment on above:Order Comment: Order Added by Discern Expert.Performed By: #### [id number] ####OVIDIO [address] [place], [place] [address]Iizrof Auto57.8 % Vwtgcx56.0-75.0[facility] SystemComment on above:Order Comment: Order Added by Discern Expert.Performed By: #### [id number] ####OVIDIO [address] [place], [place] [address]OGP w/ Auto Diffon 19-02-3019Ojkjraqalzc distribution width Auto Ratio (RBC)19.9 %High11.5-14.5SKittitas Valley Healthcare SystemComment on above:Performed By: #### [id number] ####OVIDIO [address]valosDpnHmxc[address] [place] [id number] Auto Volume Fraction (Bld)26.5 %Low36.0-48.0 [facility] CenterComment on above:Performed By: #### [id number] ####OVIDIO AvalosBuxXbxe39[address] [place] [address]Hemoglobin mass conc (Bld)8.7 g/dLLow12.0-16.0[facility] Medical CenterComment on above:Performed By: #### [id number] ####OVIDIO AvalosMbbHrru4815 [address]H Auto Entitic mass (RBC)29.6 vnUcsodv01.0-31.0[facility] CenterComment on above:Performed By: #### [id number] ####OVIDIO AvalosUegGppb9009 [place], [place] [address]MCHC Auto mass conc (RBC)32.9 g/dLLow33.0-37.0[facility] Medical CenterComment on above:Performed By: #### [id number] ####OVIDIO AvalosTuhRvao2909 [place], [place] [address]MCV Auto Entitic volume (RBC)89.8 nHNxeboi08.0-100.0 [facility] CenterComment on above:Performed By: #### [id number] ####OVIDIO AvalosPhiCxpb1692 [place] [id number] mean volume Auto Entitic volume (Bld)10.5 fLNormal7.4-11.0[facility] CenterComment on above:Performed By: #### [id number] ####OVIDIO AvalosUgcRfaw9475 [place], [place] [address]Hbtfspirj Auto #/vol (Bld)117 E3/ssSWwu181-657AdvrrqkltFive Rivers Medical CenterComment on above:Performed By: #### [id number] ####OVIDIO AvalosKnhHmcv3552 [place], [place] [address]RTC Auto #/vol (Bld)2.95 E6/mcLLow3.90-5.40SBradley County Medical CenterComment on above:Performed By: #### [id number] ####OVIDIO VtcFupt3438 [place], [place] [address]CKX Auto #/vol (Bld)4.0 E3/mcLNormal 3.6-11.0[facility] SystemComment on above:Performed By: #### [id number] ####OVIDIO AqeQykj3435 [place], [place] [address]VVDfa 50-98-1389MKU mass conc0.83 mg/dLNormal0.00-1.00[facility] Medical CenterComment on above:Performed By: #### [id number] ####OVIDIO PnlTkdv7053 [place], [place] [address]Umtzgne 59-47-2011Ptyisulnxher Auto Ql (Bld)1+NormalFive Rivers Medical CenterComment on above:Order Comment: Order Added by Discern Expert. Performed By: #### [id number] ####OVIDIO HbeJvwj9000 [place] [address] Hypochromasia1+[facility] Northwest HospitalComment on above:Order Comment: Order Added by Discern Expert.Performed By: #### [id number] ####OVIDIO HvjYkvq8004 [place], [place] [address]VMB morphology finding Nom (Bld)SEE MORPHOLOGYArkansas Children's Northwest HospitalComment on above:Order Comment: Order Added by Discern Expert.Performed By: #### [id number] ####OVIDIO EkrOutw2593 [place], [place] [address]Fdb Rate Automatedon 53-23-2041Mdu Rate Automated 15 mm/hrNoRiver Valley Medical CenterComment on above:Result Comment: AGE-SPECIFIC REFERENCE RANGES FOR SEDIMENTATION RATE AUTOMATED REFERENCE RANGE - MM/HR AGE MEN WOMEN 0-2 0-2 - PUBERTY 3-13 3-13 PUBERTY - 50 YRS 0-15 0-20 > 50 YRS0-20 0-30Performed By: #### [id number] ####OVIDIO Hematology Manual Uctamgaooq2620 [place], [place] [address]oxrgg morphon 09-20-2018 Platelet morphology finding Nom (Bld)PORTLANDNoCity Emergency Hospital SystemComment on above:Performed By: #### [id number] ####OVIDIO NebSdyh7951 [place], [place] [address]Vfsyojmlu Auto #/vol (Bld)NORMALArkansas Children's Northwest HospitalComment on above:Performed By: #### [id number] ####OVIDIO PdbTcxr4026 [place], [place] [address]BAZVN UREA NITROGENon 91-58-3648Yfks nitrogen mass conc (Bld)19 mg/dLNormal7-20[facility] HealthcareComment on above:Performed By: #### ACBC, ESR, BUN, CREAT, CREACT, FX ####Testing performed at [place] [id number] REACTIVE PROTEINon 53-04-9990EUP mass conc18.5 mg/LHigh0-10.0[facility] on above:Performed By: #### ACBC, ESR, BUN, CREAT, CREACT, FX ####Testing performed at [address] [address]QSGnf 09-13-2018 ABSOLUTE BAS0.1 V25MvbbxlPtwraLovelace Medical CenterCommunson healthcare grayling hospital on above:Performed By: #### ACBC, ESR, BUN, CREAT, CREACT, FX ####Testing performed at [place] [id number] EOS0.20 O98UhwzsjDkanqRoosevelt General Hospital on above:Performed By: #### ACBC, ESR, BUN, CREAT, CREACT, FX ####Testing performed at [place] [id number] NEUTROPHIL COUNT2.5 u11Nrmryw5.0-7.0[facility] on above:Performed By: #### ACBC, ESR, BUN, CREAT, CREACT, FX ####Testing performed at [place] [address]Basophils/100 WBC Auto (Bld)1.4 %Normal0.0-2.0[facility] on above:Performed By: #### ACBC, ESR, BUN, CREAT, CREACT, FX ####Testing performed at [address] [address]GMARGEAQG DIFFNoGallup Indian Medical Center on above:Performed By: #### ACBC, ESR, BUN, CREAT, CREACT, FX ####Testing performed at [address] [address]Uoeoldocjsq/100 WBC Auto (Bld)3.5 %Normal0.0-11.0 [facility] on above:Performed By: #### ACBC, ESR, BUN, CREAT, CREACT, FX ####Testing performed at [address] [address]Nwqkjqquuvj Auto #/vol (Bld)1.10 P28XyjtkoWtjqnUNM Hospital on above:Performed By: #### ACBC, ESR, BUN, CREAT, CREACT, FX ####Testing performed at [address] [address]Bffcxbauste/100 WBC Auto (Bld)27.0 %Csfvqo52.0-55.0[facility] on above:Performed By: #### ACBC, ESR, BUN, CREAT, CREACT, FX ####Testing performed at [address] [address]Jndzemivb Auto #/vol (Bld)0.4 D72MpmcgsPyrcuGallup Indian Medical Center on above:Performed By: #### ACBC, ESR, BUN, CREAT, CREACT, FX ####Testing performed at [address] [address]Fcowpmvrk/100 WBC Auto (Bld)9.4 %Normal0.0-10.0[facility] on above:Performed By: #### ACBC, ESR, BUN, CREAT, CREACT, FX ####Testing performed at [address] [address]Dtfpcjlcaty/100 WBC Auto (Bld) 58.7 %Euuuhs76.0-75.0[facility] on above:Performed By: #### ACBC, ESR, BUN, CREAT, CREACT, FX ####Testing performed at [place] [address]Erythrocyte distribution width Auto Ratio (RBC)17.6 %High11.5-14.5ATrumbull Memorial Hospital on above:Performed By: #### ACBC, ESR, BUN, CREAT, CREACT, FX ####Testing performed at [place], [place] [address]Hematocrit Auto Volume Fraction (Bld)26.2 %Low36.0-48.0[facility] on above:Performed By: #### ACBC, ESR, BUN, CREAT, CREACT, FX ####Testing performed at [place], [place] [address]Hemoglobin mass conc (Bld)8.8 g/dLLow12.0-16.0[facility] on above:Performed By: #### ACBC, ESR, BUN, CREAT, CREACT, FX ####Testing performed at [place] [address]MCH Auto Entitic mass (RBC)29.3 dkUlbwsi96.0-35.0 [facility] on above:Performed By: #### ACBC, ESR, BUN, CREAT, CREACT, FX ####Testing performed at [place] [address]MCHC Auto mass conc (RBC)33.7 g/eBWfcvrm78.0-37.0[facility] on above:Performed By: #### ACBC, ESR, BUN, CREAT, CREACT, FX ####Testing performed at [place] [address]MCV Auto Entitic volume (RBC)86.9 dQPiitlt45.0-100.0[facility] on above:Performed By: #### ACBC, ESR, BUN, CREAT, CREACT, FX ####Testing performed at [place], [place] [address]Platelet mean volume Auto Entitic volume (Bld)10.1 fLNormal 7.4-11.0[facility] on above:Performed By: #### ACBC, ESR, BUN, CREAT, CREACT, FX ####Testing performed at [place] [address]Platelets Auto #/vol (Bld)130 /cmmNormal 130.0-400.0[facility] on above:Performed By: #### ACBC, ESR, BUN, CREAT, CREACT, FX ####Testing performed at [place] [address]RBC Auto #/vol (Bld)3.01 /cmmLow4.0-5.4ATrumbull Memorial Hospital on above:Performed By: #### ACBC, ESR, BUN, CREAT, CREACT, FX ####Testing performed at [place] [address]WBC Auto #/vol (Bld)4.2 /cmmNormal3.6-11.0[facility] on above:Performed By: #### ACBC, ESR, BUN, CREAT, CREACT, FX ####Testing performed at [place], [place] [address]CREATININE,SERUMon 00-89-3660Zkdkwzuhma mass conc1.5 mg/dLHigh0.52-1.04 [facility] on above:Performed By: #### ACBC, ESR, BUN, CREAT, CREACT, FX ####Testing performed at [place] [address]EST. GFR, Vetblkcr77 ml/min/1.73sq.mNLovelace Regional Hospital, [place] on above:Performed By: #### ACBC, ESR, BUN, CREAT, CREACT, FX ####Testing performed at [place] [address]EST. GFR,Non Zjlkwfvu22 ml/min/1.73sq.[facility] on above:Performed By: #### ACBC, ESR, BUN, CREAT, CREACT, FX ####Testing performed at [place] [address]GFR/1.73 sq M predicted among non-blacks MDRD vol rate/area (S/P/Bld)Average GFR for 30-39 years old = 109.[facility] Comment on above:Result Comment: Chronic Kidney disease, GFR = <60.Kidney failure, GFR = <15.The GFR estimate is not adjusted for extreme body surface area or acute process, nor has it been validated for women or ethnic groups other than and .Performed By: #### ACBC, ESR, BUN, CREAT, CREACT, FX ####Testing performed at [address] [address]KFVtp 05-27-7852FDX Velocity (Bld)49 mm/hHigh0-15 [facility] HealthcareComment on above:Performed By: #### ACBC, ESR, BUN, CREAT, CREACT, FX ####Testing performed at [address] [address]YBG REQUESTon [id number] TOFAX TO DR HARTMAN AT [phone] AND TO [facility] AT [phone] HospitalComment on above:Performed By: #### PHY, BUN, CREAT, FX ####Testing performed at [address] [address]MYA REQUEST on 08-76-1120PQO [id number] State HospitalComment on above: Performed By: #### FX ####Testing performed at [address] [address]VKSOW UREA NITROGENon 52-89-4586Fhyz nitrogen mass conc (Bld)21 mg/dLHigh7-20[facility] HealthcareComment on above:Performed By: #### PHY, BUN, CREAT, FX ####Testing performed at [address] [address]GUZACGQJYV,SERUMon 45-44-5478Wccvryouym mass conc 1.4 mg/dLHigh0.52-1.04[facility] HealthcareComment on above:Performed By: #### PHY, BUN, CREAT, FX ####Testing performed at [address] [address]PXF. GFR, Qvnnylak82 ml/min/1.73sq.[facility] HospitalComment on above:Performed By: #### PHY, BUN, CREAT, FX ####Testing performed at [address] [address]RMA. GFR,Non Mqzuyopq51 ml/min/1.73sq.[facility] Comment on above:Performed By: #### PHY, BUN, CREAT, FX ####Testing performed at [address] [address]KFR/1.73 sq M predicted among non-blacks MDRD vol rate/area (S/P/Bld)Average GFR for 30-39 years old = 109.[facility] HospitalComment on above:Result Comment: Chronic Kidney disease, GFR = <60.Kidney failure, GFR = <15.The GFR estimate is not adjusted for extreme body surface area or acute process, nor has it been validated for women or ethnic groups other than and . Performed By: #### PHY, BUN, CREAT, FX ####Testing performed at [address] [address]TZU REQUESTon [id number] TO [phone] [facility] HospitalComment on above:Performed By: #### PHY, BUN, CREAT, FX ####Testing performed at [address] [address]GFU [facility] 82-43-0305ZKG [facility] DEVAN [facility] Medical CenterComment on above:Performed By: #### PHY, BUN, CREAT, FX ####Testing performed at [address] [address]JKRrk 79-58-0394Wzjl nitrogen mass conc24 mg/dLReynolds Memorial Hospital03-27 [facility] CenterComment on above:Performed By: #### [id number] ####[facility] Trspvhfv1222 [place], [place] [address]Fntqribtbtjo 08-27-2018 Creatinine mass conc1.6 mg/dLHigh0.5-1.1SBradley County Medical CenterComment on above:Performed By: #### [id number] ####OVIDIO Wheeqkmx2276 [place], [place] [address]aYNZff 31-20-2266bVOJ AA43 mL/min/1.73 u8UlfzyiLyjasdmwcRiver Valley Medical CenterComment on above:Order Comment: Order added by Discern Expert.Performed By: #### [id number] ####OVIDIO TocUqsw3361 [place], [place] [address]RHZ/1.73 sq M predicted among non-blacks MDRD vol rate/area (S/P/Bld)36 mL/min/1.73 m2 [facility] HospitalComment on above:Order Comment: Order added by Discern Expert.Performed By: #### [id number] ####OVIDIO DvbZyyj3869 [place], [place] [address]Ayyt,Tissueon 41-61-9802Ucwd,TissueSpecimen Description .TISSUE EPIDURAL TISSUE Special Requests NOT [...] NOT REPORTED Trimethoprim/Sulfa <=10 SUSCEPTIBLE Vancomycin <=0.5 SUSCEPTIBLENoHocking Valley Community HospitalComment on above:Performed By: #### LACWB #### [address] [place] [address] Cult,TissueSpecimen Description .SPINE .TISSUE T4 [...] NOT REPORTED Trimethoprim/Sulfa <=10 SUSCEPTIBLE Vancomycin <=0.5 SUSCEPTIBLENormalCommunity Regional Medical CenterComment on above:Performed By: #### LEATHAB #### [employer] [address] [place] [address] Basic Metabolic Profon 08-25-2018(cont.)NormalCommunity Regional Medical CenterComment on above:Result Comment: Average GFR for 30-39 years old: 107 mL/min/1.73sq m Chronic Kidney Disease: <60 mL/min/1.73sq m Kidney failure: <15 mL/min/1.73sq m eGFR calculated using average adult body mass. Additional eGFR calculator available at: http://www.Rapid RMS.Digital Lumens/multiple_crcl_2012.htmPerformed By: #### LACHELLE #### [employer] [address] [place] [address] 46360 Anion gap molar conc14 mmol/LNormal9-17[facility] CenterComment on above:Performed By: #### TERRYWB #### [employer] [address] [place] [address] 02322 Calcium mass conc9.1 mg/dLNormal8.6-10.4[facility] CenterComment on above:Performed By: #### TERRYWB #### [employer] [address] [place] [address] 34855 Chloride molar conc96 mmol/WAae14-417UgrkoCommunity Regional Medical CenterComment on above:Performed By: #### TERRYWB #### [employer] [address] [place] [address] 59820 CO2 molar conc23 mmol/WWbxsql42-49RnvyfCommunity Regional Medical Center Comment on above:Performed By: #### LACWB #### [facility] [employer] [address] [place] [address] 14493 Creatinine mass conc1.52 mg/dLHigh0.50-0.90[facility] CenterComment on above:Performed By: #### LACWB #### [facility] [employer] [address] [place] [address] 75679 GFR, Amer46 mL/minLow>60[facility] Comment on above:Performed By: #### LACWB #### [facility] [employer] [address] [place] [address] 22184 GFR,non Amer38 mL/minLow>60[facility] Comment on above:Performed By: #### LACWB #### [facility] [employer] [address] [place] [address] 49026 Glucose mass conc95 mg/lLZzrayu98-32LdffsSt. Mary's Medical CenterComment on above:Performed By: #### LACWB #### [facility] [employer] [address] [place] [address] 53345 Potassium molar conc4.5 mmol/LNormal3.7-5.3MSt. Mary's Medical CenterComment on above:Performed By: #### LACWB #### [facility] [employer] [address] [place] [address] 91791 Sodium molar nmtj822 mmol/GCko181-193VnphwCommunity Regional Medical CenterComment on above:Performed By: #### LACWB #### [facility] [employer] [address] [place] [address] 04980 Urea nitrogen mass conc43 mg/dLHigh6-20[facility] CenterComment on above:Performed By: #### LACWB #### [facility] [employer] [address] [place] [address] 02802 BUN/CRE RatioNOT REPORTEDNormal9-20[facility] Comment on above:Performed By: #### LETAHAB #### [address] [address] Staging:NOT REPORTEDNormalCommunity Regional Medical CenterComment on above:Performed By: #### TERRYWB #### [facility] [employer] [address] [place] [address] 22911 CBC with Diffon [id number]. Basophil0.07 k/uLNormal0.00-0.20 [facility] CenterComment on above:Performed By: #### LEATHAB #### [facility] [employer] [address] [place] [address] Abs.Imm.Granulocyte0.08 k/uLNormal0.00-0.30[facility] Medical CenterComment on above:Performed By: #### TERRYWB #### [facility] [employer] [address] [place] [address] 34599 Abs.Neutrophil (Seg)5.77 k/uLNormal1.50-8.10[facility] Medical CenterComment on above:Performed By: #### TERRYWB #### [address] [address] Basophils/100 WBC (Bld)1 %Normal0-2MSt. Mary's Medical Center Comment on above:Performed By: #### TERRYWB #### [facility] [employer] [address] [place] [address] 34752 Eosinophils #/vol (Bld)0.12 10*3/uLNormal0.00-0.44[facility] CenterComment on above:Performed By: #### LACWB #### [facility] [employer] [address] [place] [address] 36207 Eosinophils/100 WBC (Bld)1 %Normal1-4[facility] Medical CenterComment on above:Performed By: #### TERRYWB #### [facility] [address] [place] [address] 03271 Immature granulocytes #/vol (Bld)1 %Gnci4GuaatCommunity Regional Medical CenterComment on above:Performed By: #### LACWB #### [facility] [employer] [address] [place] [address] 92197 Lymphocytes #/vol (Bld)1.83 10*3/uLNormal1.10-3.70[facility] CenterComment on above:Performed By: #### TERRYWB #### [facility] [employer] [address] [place] [address] 15132 Lymphocytes/100 WBC (Bld)21 %Xxl79-52SwmypCommunity Regional Medical CenterComment on above:Performed By: #### LACWB #### [facility] [employer] [address] [place] [address] 52732 Monocytes #/vol (Bld)0.92 10*3/uLNormal0.10-1.20[facility] Medical CenterComment on above:Performed By: #### LACWB #### [facility] [employer] [address] [place] [address] 82164 Monocytes/100 WBC (Bld)11 %Normal3-12[facility] Medical CenterComment on above:Performed By: #### LACWB #### [facility] [address] [place] [address] 77008 Neutrophil (Seg)66 %Nute08-02ObvxlCommunity Regional Medical Center Comment on above:Performed By: #### LACWB #### [facility] [employer] [address] [place] [address] 62581 Erythrocyte distribution width Ratio (RBC)14.6 %High11.8-14.4[facility] Medical CenterComment on above:Performed By: #### LACWB #### [facility] [employer] [address] [place] [address] 67954 Hematocrit Volume Fraction (Bld)32.6 %Low36.3-47.1MSt. Mary's Medical CenterComment on above:Performed By: #### LACWB #### [facility] [employer] [address] [place] [address] 29045 Hemoglobin mass conc (Bld)10.0 g/dLLow11.9-15.1MSt. Mary's Medical CenterComment on above:Performed By: #### LACWB #### [facility] [employer] [address] [place] [address] 84616 MCH Entitic mass (RBC)28.2 osLkbjwb31.2-33.5Community [facility] Medical CenterComment on above:Performed By: #### LACWB #### [facility] [employer] [address] [place] [address] 29769 MCHC mass conc (RBC)30.7 g/tISspmmd49.4-34.8Community [facility] Medical CenterComment on above:Performed By: #### LACWB #### [facility] [employer] [address] [place] [address] 21188 MCV Entitic volume (RBC)91.8 qBHmuntj27.6-102.9Community [facility] Medical CenterComment on above:Performed By: #### LACWB #### [facility] [employer] [address] [place] [address] 05887 NRBC Automated0.0 per 100 WBCNormal0.0Community [facility] Medical CenterComment on above:Performed By: #### LACWB #### [facility] [employer] [address] [place] [address] 94111 Platelet mean volume Entitic volume (Bld)10.4 fLNormal8.1-13.5Community [facility] Medical CenterComment on above:Performed By: #### LACWB #### [facility] [employer] [address] [place] [address] 23095 Platelets #/vol (Bld)292 10*3/xHAabjme001-236GgporSonoma Developmental CenterComment on above:Performed By: #### LACWB #### [facility] [employer] [address] [place] [address] 85393 RBC #/vol (Bld)3.55 10*6/uLLow3.95-5.11[facility] Medical CenterComment on above:Performed By: #### TERRYWB #### [facility] [employer] [address] [place] [address] 31729 RBC morphology finding Nom (Bld)ANISOCYTOSIS PRESENTNormalCommunity Regional Medical CenterComment on above:Performed By: #### LACWB #### [facility] [employer] [address] [place] [address] 75142 WBC #/vol (Bld)8.8 10*3/uLNormal3.5-11.3MSt. Mary's Medical CenterComment on above:Performed By: #### LACWB #### [facility] [employer] [address] [place] [address] 60690 Auto Diff PerformedNOT REPORTEDOhioHealth Nelsonville Health CenterComment on above:Performed By: #### LACWB #### [facility] [address] [place] [address] 98551 Platelets #/vol (Bld)NOT REPORTEDNormalCommunity Regional Medical CenterComment on above:Performed By: #### LACWB #### [facility] [employer] [address] [place] [address] 94554 WBC MorphologyNOT REPORTEDOhioHealth Nelsonville Health Center Comment on above:Performed By: #### LACWB #### [facility] [address] [place] [address] 35644 Fungi,Direct Examon [id number],Direct ExamSpecimen Description .SPINE .TISSUE T4 LAMINA Special Requests NOT REPORTED Direct Exam NO FUNGAL ELEMENTS SEEN Report Status FINAL 08/25/2018NormalCommunity Regional Medical CenterComment on above:Performed By: #### LACWB #### [facility] [employer] [address] [place] [address] Magnesiumon 89-07-5274Ijyadtyuo mass conc2.4 mg/dLNormal1.6-2.6 [facility] Medical CenterComment on above:Performed By: #### LACWB #### [facility] [employer] [address] [place], [place] [id number] Procalcitoninon 32-88-1479Vrbnbxd mass conc0.13 ng/mLHigh<0.09Community [facility] Medical CenterComment on above:Result Comment: Suspected Sepsis: [...] entered into the Change in Procalcitonin Calculator (www.qxevsb-wdv-kdgjkmrryl.com) to determine the patient's Mortality Risk PrognosisPerformed By: #### LACWB #### [facility] [employer] [address] [place] [address] Cult,Aerobe/Anaerobeon [id number],Aerobe/AnaerobeSpecimen Description .SPINE Special Requests NOT REPORTED Direct Exam DUPLICATE ORDER SEE RESULTS FOR TISSUE CULTURE Culture NOT REPORTED Report Status FINAL 08/24/2018[facility] Nelson[facility] Health CenterComment on above:Performed By: #### SPAG #### [employer] [address] [place], [place] [address] Cult,Aerobe/AnaerobeSpecimen Description .SPINE Special Requests NOT REPORTED Direct Exam DUPLICATE ORDER SEE RESUULTS FOR TISSUE CULTURE Culture NOT REPORTED Report Status FINAL 08/24/2018[facility] Health CenterComment on above:Performed By: #### SPAG #### [employer] [address] [place] [address] 54564 FLUORO FOR SURGICAL PROCEDURESon 49-00-2662DWKBBX FOR SURGICAL PROCEDURESRadiology exam is complete. No Radiologist dictation. Please follow up with ordering provider. Final resultNoHocking Valley Community HospitalOPERATIVE REPORTon 08-24-[address] [address] OPERATIVE REPORT PATIENT NAME: CELINA GASPAR : 1980 MED REC NO: [id number] ROOM: [facility] ACCOUNT NO: [id number] ADMIT DATE: 08/15/2018 PROVIDER: Lita Mccray MD DATE OF PROCEDURE: 08/23/2018 SURGEON: Lita Mccray MD LEASE ADMINISTRATOR: Eliel Larios DO PREOPERATIVE DIAGNOSIS: Epidural abscess, [...] satisfactory condition. LITA MCCRAY MD LUIZ/V_SSNCK_I Doc#: [id number] CC: Lita Mccray MDNormalCommunity Regional Medical CenterProcalcitoninon 09-82-7589Enyexyl mass conc0.16 ng/mLHigh<0.09[facility] Comment on above:Result Comment: Suspected [...] entered into the Change in Procalcitonin Calculator (www.ctvxwo-hfi-kvprgzbkqb.Digital Lumens) to determine the patient's Mortality Risk PrognosisPerformed By: #### SPAG #### [employer] [address] [place] [address] Basic Metab w/rfx MGon 08-23-2018(cont.)NormalCommunity Regional Medical CenterComment on above:Result Comment: Average GFR for 30-39 years old: 107 mL/min/1.73sq m Chronic Kidney Disease: <60 mL/min/1.73sq m Kidney failure: <15 mL/min/1.73sq m eGFR calculated using average adult body mass. Additional eGFR calculator available at: http://www.Rapid RMS.Digital Lumens/multiple_crcl_2012.htmPerformed By: #### SPAG #### [employer] [address] [place] [address] Anion gap molar conc14 mmol/LNormal9-17Community [facility] Medical CenterComment on above:Performed By: #### SPAG #### [facility] [address] [place] [address] 31473 Calcium mass conc9.9 mg/dLNormal8.6-10.4Community [facility] Medical CenterComment on above:Performed By: #### SPAG #### [facility] [address] [place] [address] 62772 Chloride molar conc99 mmol/BWacjbr28-728ZralvCommunity Regional Medical CenterComment on above:Performed By: #### SPAG #### [facility] [address] [place] [address] 43234 CO2 molar conc26 mmol/BCqegig54-24MzhzlCommunity Regional Medical Center Comment on above:Performed By: #### SPAG #### [facility] [address] [place] [address] 61842 Creatinine mass conc1.42 mg/dLHigh0.50-0.90Community [facility] Medical CenterComment on above:Performed By: #### SPAG #### [facility] [employer] [address] [place] [address] 43476 GFR, Amer50 mL/minLow>60[facility] Comment on above:Performed By: #### SPAG #### [facility] [address] [place] [address] 75700 GFR,non Amer41 mL/minLow>60[facility] Comment on above:Performed By: #### SPAG #### [facility] [employer] [address] [place] [address] 05477 Glucose mass conc95 mg/tYKmjqhx36-69GkwxdSt. Mary's Medical CenterComment on above:Performed By: #### SPAG #### [facility] [employer] [address] [place] [address] 52129 Potassium molar conc4.9 mmol/LNormal3.7-5.3MercHuntington Beach Hospital and Medical CenterComment on above:Result Comment: SPECIMEN SLIGHTLY HEMOLYZED, RESULTS MAY BE ADVERSELY AFFECTED.Performed By: #### DIEGO #### [facility] [employer] [address] [place] [address] 13651 Sodium molar gvhx394 mmol/EIuoxkm214-375PlpbwCommunity Regional Medical CenterComment on above:Performed By: #### DIEGO #### [facility] [employer] [address] [place] [address] 03126 Urea nitrogen mass conc31 mg/dLHigh6-20[facility] Medical CenterComment on above:Performed By: #### DIEGO #### [facility] [employer] [address] [place] [address] BUN/CRE RatioNOT REPORTEDNormal9-20[facility] Comment on above:Performed By: #### DIEGO #### [facility] [employer] [address] [place] [address] Staging:NOT REPORTEDNormalMerSonoma Developmental CenterComment on above:Performed By: #### DIEGO #### [facility] [employer] [address] [place] [address] CBC with Diffon [id number]. Basophil0.06 k/uLNormal0.00-0.20 [facility] Medical CenterComment on above:Performed By: #### DIEGO #### [facility] [employer] [address] [place] [address] 59241 Abs.Imm.Granulocyte0.22 k/uLNormal0.00-0.30Community [facility] Medical CenterComment on above:Performed By: #### DIEGO #### [facility] [employer] [address] [place] [address] 12586 Abs.Neutrophil (Seg)4.43 k/uLNormal1.50-8.10Community [facility] Medical CenterComment on above:Performed By: #### SPAG #### [address] [address] Basophils/100 WBC (Bld)1 %Normal0-2MSt. Mary's Medical Center Comment on above:Performed By: #### JANNETHG #### [address] [address] Eosinophils #/vol (Bld)0.15 10*3/uLNormal0.00-0.44Community [facility] Medical CenterComment on above:Performed By: #### JANNETHG #### [address] [address] Eosinophils/100 WBC (Bld)2 %Normal1-4Community [facility] Medical CenterComment on above:Performed By: #### JANNETHG #### [address] [address] Erythrocyte distribution width Ratio (RBC)14.4 %Ohqvtd12.8-14.4 Community [facility] Medical CenterComment on above:Performed By: #### JANNETHG #### [address] [address] Hematocrit Volume Fraction (Bld)33.2 %Low36.3-47.1MSt. Mary's Medical CenterComment on above:Performed By: #### SPAG #### [address] [address] Hemoglobin mass conc (Bld)10.4 g/dLLow11.9-15.1MSt. Mary's Medical CenterComment on above:Performed By: #### SPAG #### [address] [address] Immature granulocytes #/vol (Bld)3 %Khqs5QipgdCommunity Regional Medical CenterComment on above:Performed By: #### SPAG #### [address] [place] [address] Lymphocytes #/vol (Bld)2.22 10*3/uLNormal1.10-3.70Community [facility] Medical CenterComment on above:Performed By: #### JANNETHG #### [facility] [employer] [address] [place] [address] 81647 Lymphocytes/100 WBC (Bld)29 %Gasjcn63-11EukukCommunity Regional Medical CenterComment on above:Performed By: #### DIEGO #### [facility] [employer] [address] [place] [address] 88059 MCH Entitic mass (RBC)27.7 gtNulhuu72.2-33.5Community [facility] Medical CenterComment on above:Performed By: #### DIEGO #### [facility] [employer] [address] [place] [address] 73661 MCHC mass conc (RBC)31.3 g/uOHznptu49.4-34.8Community [facility] Medical CenterComment on above:Performed By: #### DIEGO #### [facility] [employer] [address] [place] [address] 80237 MCV Entitic volume (RBC)88.3 iNGdomhe45.6-102.9Community [facility] Medical CenterComment on above:Performed By: #### JANNETHG #### [facility] [employer] [address] [place] [address] 31518 Monocytes #/vol (Bld)0.63 10*3/uLNormal0.10-1.20[facility] Medical CenterComment on above:Performed By: #### JANNETHG #### [facility] [employer] [address] [place] [address] 47679 Monocytes/100 WBC (Bld)8 %Normal3-12Community [facility] Medical CenterComment on above:Performed By: #### SPAG #### [facility] [employer] [address] [place] [address] 45327 Neutrophil (Seg)57 %Mpulbv43-48QthmxCommunity Regional Medical Center Comment on above:Performed By: #### JANNETHG #### [facility] [employer] [address] [place] [address] 78738 NRBC Automated0.0 per 100 WBCNormal0.0Community [facility] Medical CenterComment on above:Performed By: #### SPAG #### [address] [address] Platelets #/vol (Bld)See Reflexed IPF ZzdueoOigyvy441-002PnsubCommunity Regional Medical CenterComment on above:Performed By: #### SPAG #### [address] [address] RBC #/vol (Bld)3.76 10*6/uLLow3.95-5.11Community [facility] Medical CenterComment on above:Performed By: #### SPAG #### [address] [address] WBC #/vol (Bld)7.7 10*3/uLNormal3.5-11.3MSt. Mary's Medical CenterComment on above:Performed By: #### SPAG #### [facility] [employer] [address] [place] [address] 88656 Auto Diff PerformedNOT REPORTEDNormalCommunity Regional Medical CenterComment on above:Performed By: #### SPAG #### [facility] [employer] [address] [place] [address] 18125 Platelet mean volume Entitic volume (Bld)NOT REPORTEDNormal8.1-13.5 [facility] Medical CenterComment on above:Performed By: #### SPAG #### [address] [address] Platelets #/vol (Bld)NOT REPORTEDOhioHealth Nelsonville Health CenterComment on above:Performed By: #### SPAG #### [facility] [address] [place] [address] 11254 RBC morphology finding Nom (Bld)NOT REPORTEDOhioHealth Nelsonville Health CenterComment on above:Performed By: #### SPAG #### [facility] [employer] [address] [place] [address] 80019 WBC MorphologyNOT REPORTEDOhioHealth Nelsonville Health Center Comment on above:Performed By: #### SPAG #### [facility] [employer] [address] [place] [address] 25572 Cult,Bloodon [id number],BloodSpecimen Description .BLOOD Special Requests L AC 6ML Culture NO GROWTH 6 DAYS Report Status FINAL 08/23/2018[facility] CenterComment on above:Performed By: #### SPAG #### [facility] [address] [place] [address] 51169 Cult,BloodSpecimen Description .BLOOD Special Requests L FOREARM 6ML Culture NO GROWTH 6 DAYS Report Status FINAL 08/23/2018[facility] CenterComment on above:Performed By: #### SPAG #### [facility] [employer] [address] [place] [address] 32751 PLT, Immature Fract.on 05-20-7007Yzlercwr, Fluoresc.113 k/uLLow [address] [place], [place] [address]Comment on above:Performed By: #### SPAG #### [facility] [employer] [address] [place] [address] 17485 PLT, Immature Fract.3.7 %Normal1.1-10.3Mercy Dameron HospitalComment on above:Performed By: #### SPAG #### [facility] [employer] [address] [place] [address] 48687 CBC with Diffon [id number]. Basophil0.00 k/uLNormal0.0-0.2MSt. Mary's Medical CenterComment on above:Performed By: #### ULAG #### [address] [address] Abs.Imm.Granulocyte0.30 k/uLNormal0.00-0.30[facility] Medical CenterComment on above:Performed By: #### ULAG #### [address] [address] Abs.Neutrophil (Seg)4.87 k/uLNormal1.8-7.7Community [facility] Medical CenterComment on above:Performed By: #### ULAG #### [address] [address] Basophils/100 WBC (Bld)0 %Normal0-2MSt. Mary's Medical Center Comment on above:Performed By: #### ULAG #### [address] [address]339 Eosinophils #/vol (Bld)0.00 10*3/uLNormal0.0-0.4[facility] Medical CenterComment on above:Performed By: #### ULAG #### [address] [address]756 Eosinophils/100 WBC (Bld)0 %Low1-4[facility] Comment on above:Performed By: #### ULAG #### [address] [address] Immature granulocytes #/vol (Bld)4 %Ntfk1LatzlCommunity Regional Medical CenterComment on above:Performed By: #### ULAG #### [address] [address]66 Lymphocytes #/vol (Bld)1.88 10*3/uLNormal1.0-4.8[facility] CenterComment on above:Performed By: #### ULAG #### [facility] [employer] [address] [place] [address] 95958 Lymphocytes/100 WBC (Bld)25 %Mvkktc62-55WyraeCommunity Regional Medical CenterComment on above:Performed By: #### ULAG #### [facility] [employer] [address] [place] [address] 33509 Monocytes #/vol (Bld)0.45 10*3/uLNormal0.1-0.8[facility] Medical CenterComment on above:Performed By: #### ULAG #### [facility] [employer] [address] [place] [address] 37424 Monocytes/100 WBC (Bld)6 %Normal1-7[facility] Comment on above:Performed By: #### ULAG #### [facility] [employer] [address] [place] [address] 81725 Morphology Interp Rehan (Bld)ANISOCYTOSIS PRESENTNormalCommunity Regional Medical CenterComment on above:Performed By: #### ULAG #### [facility] [employer] [address] [place] [address] 54995 Neutrophil (Seg)65 %Ezhxfw59-35GficiCommunity Regional Medical Center Comment on above:Performed By: #### ULAG #### [facility] [employer] [address] [place] [address] 71994 Erythrocyte distribution width Ratio (RBC)14.5 %High11.8-14.4Community [facility] Medical CenterComment on above:Performed By: #### ULAG #### [facility] [employer] [address] [place] [address] 91038 Hematocrit Volume Fraction (Bld)38.1 %Gsqmpy07.3-47.1MercHuntington Beach Hospital and Medical CenterComment on above:Performed By: #### ULAG #### [address] [address] Hemoglobin mass conc (Bld)11.5 g/dLLow11.9-15.1MSt. Mary's Medical CenterComment on above:Performed By: #### ULAG #### [address] 63134 MCH Entitic mass (RBC)28.3 jlVujoue50.2-33.5[facility] CenterComment on above:Performed By: #### ULAG #### [address] 84453 MCHC mass conc (RBC)30.2 g/tDGtebiv00.4-34.8[facility] CenterComment on above:Performed By: #### ULAG #### [address] [address]41 MCV Entitic volume (RBC)93.6 fTLdvvbi38.6-102.9[facility] CenterComment on above:Performed By: #### ULAG #### [address] 10399 NRBC Automated0.0 per 100 WBCNormal0.0Community [facility] Medical CenterComment on above:Performed By: #### ULAG #### [address] 01528 Platelet mean volume Entitic volume (Bld)10.7 fLNormal8.1-13.5[facility] Medical CenterComment on above:Performed By: #### ULAG #### [address] [address] Platelets #/vol (Bld)265 10*3/qSXhzkri701-239AgnouCommunity Regional Medical CenterComment on above:Performed By: #### ULAG #### [facility] [address] [place] [address] 96321 RBC #/vol (Bld)4.07 10*6/uLNormal3.95-5.11Community Regional Medical CenterComment on above:Performed By: #### ULAG #### [employer] [address] [place] [address] 78895 WBC #/vol (Bld)7.5 10*3/uLNormal3.5-11.3MercHuntington Beach Hospital and Medical CenterComment on above:Performed By: #### ULAG #### [employer] [address] [place] [address] 61764 Auto Diff PerformedNOT [facility] at RiverBendComment on above:Performed By: #### ULAG #### [employer] [address] [place] [address] 75496 Platelets #/vol (Bld)NOT REPORTEDOhioHealth Nelsonville Health CenterComment on above:Performed By: #### ULAG #### [employer] [address] [place] [address] 23537 RBC morphology finding Nom (Bld)NOT [facility] at RiverBendComment on above:Performed By: #### ULAG #### [employer] [address] [place] [address] 41575 WBC MorphologyNOT [facility] Comment on above:Performed By: #### ULAG #### [employer] [address] [place] [address] 99634 Comp Metabolic Pr/rfx MGon [id number] mass conc3.2 g/dLLow 3.5-5.2MercHuntington Beach Hospital and Medical CenterComment on above:Performed By: #### ULAG #### [employer] [address] [place] [address] 27411 Albumin/Globulin mass ratio0.8 {ratio}Low1.0-2.5[facility] Medical CenterComment on above:Performed By: #### IRLANDA #### [employer] [address] [place] [address] 43719 Alkaline Phos90 U/ZOtelnj58-163CeizuCommunity Regional Medical Center Comment on above:Performed By: #### SEBAG #### [facility] [employer] [address] [place] [address] 39295 ALT enzyme act/vol18 U/LNormal5-33[facility] Comment on above:Performed By: #### IRLANDA #### [facility] [employer] [address] [place] [address] 11319 AST enzyme act/vol16 U/LNormal<32[facility] Comment on above:Performed By: #### IRLANDA #### [facility] [employer] [address] [place] [address] 79551 Protein mass conc7.0 g/dLNormal6.4-8.3Mclevel[facility]y Dameron HospitalComment on above:Performed By: #### SEBAG #### [address] [address] (cont.)NormalCommunity Regional Medical CenterComment on above: Result Comment: Average GFR for 30-39 years old: 107 mL/min/1.73sq m Chronic Kidney Disease: <60 mL/min/1.73sq m Kidney failure: <15 mL/min/1.73sq m eGFR calculated using average adult body mass. Additional eGFR calculator available at: http://www.Rapid RMS.com/multiple_crcl_2012.htmPerformed By: #### ULAG #### [employer] [address] [place] [address] 28471 Anion gap molar conc15 mmol/LNormal9-17[facility] Medical CenterComment on above:Performed By: #### ULAG #### [facility] [address] [place] [address] Bilirubin Ql (U)0.34 mg/dLNormal0.3-1.2MSt. Mary's Medical CenterComment on above:Performed By: #### ULAG #### [facility] [employer] [address] [place] [address] 86198 Calcium mass conc9.7 mg/dLNormal8.6-10.4[facility] Medical CenterComment on above:Performed By: #### ULAG #### [facility] [employer] [address] [place] [address] 87045 Chloride molar gwgh562 mmol/DYpkjvg21-951NsrgbCommunity Regional Medical CenterComment on above:Performed By: #### ULAG #### [facility] [employer] [address] [place] [address] 60284 CO2 molar conc24 mmol/FGxdepg30-21WhuszCommunity Regional Medical Center Comment on above:Performed By: #### ULAG #### [facility] [employer] [address] [place] [address] 64418 Creatinine mass conc1.02 mg/dLHigh0.50-0.90[facility] Medical CenterComment on above:Performed By: #### ULAG #### [facility] [employer] [address] [place] [address] 90927 GFR, Amer>60Normal>60[facility] Medical CenterComment on above:Performed By: #### ULAG #### [facility] [employer] [address] [place] [address] 29118 GFR,non Amer>60Normal>60[facility] Comment on above:Performed By: #### ULAG #### [facility] [employer] [address] [place] [address] 82612 Glucose mass pomk907 mg/wQStdl99-49BwameSt. Mary's Medical Center Comment on above:Performed By: #### ULAG #### [facility] [employer] [address] [place] [address] 17188 Potassium molar conc4.5 mmol/LNormal3.7-5.3MSt. Mary's Medical CenterComment on above:Performed By: #### ULAG #### [facility] [employer] [address] [place] [address] 16268 Sodium molar onya141 mmol/QAxigur222-248LuksiCommunity Regional Medical CenterComment on above:Performed By: #### ULAG #### [facility] [employer] [address] [place] [address] 34073 Urea nitrogen mass conc19 mg/dLNormal6-20[facility] Medical CenterComment on above:Performed By: #### ULAG #### [facility] [employer] [address] [place] [address] 69200 BUN/CRE RatioNOT REPORTEDNormal9-20[facility] Comment on above:Performed By: #### ULAG #### [facility] [employer] [address] [place] [address] 21311 Staging:NOT REPORTEDNormalCommunity Regional Medical CenterComment on above:Performed By: #### ULAG #### [facility] [employer] [address] [place] [address] 43503 Magnesiumon 47-20-8103Iauztkupu mass conc2.4 mg/dLNormal1.6-2.6 [facility] Medical CenterComment on above:Performed By: #### ULAG #### [facility] [employer] [address] [place] [address] 94526 Vancomycin Troughon 06-73-7868Mbhemsemna Mrvmua31.2 ug/mLCritically high10.0-20.0[facility] Medical CenterComment on above:Result Comment: Higher trough serum vancomycin concentrations of 15-20 ug/mL are recommended for complicated infections such as bacteremia, endocarditis, osteomyelitis, meningitis, and hospital acquired pneumonia. ADDED ONPerformed By: #### ULAG #### [facility] [employer] [address] [place] [address] 69026 Date last dose,NOT REPORTEDNoHocking Valley Community Hospital Comment on above:Performed By: #### ULAG #### [facility] [employer] [address] [place] [address] 60032 Dose amount,NOT REPORTEDNoHocking Valley Community Hospital Comment on above:Performed By: #### ULAG #### [facility] [employer] [address] [place] [address] 98288 Time last dose,NOT REPORTEDOhioHealth Nelsonville Health Center Comment on above:Performed By: #### ULAG #### [facility] [employer] [address] [place] [address] 88336 CBC with Diffon [id number]. Basophil0.08 k/uLNormal0.00-0.20 [facility] Medical CenterComment on above:Performed By: #### ULAG #### [facility] [employer] [address] [place] [address] 54994 Abs.Imm.Granulocyte0.50 k/uLHigh0.00-0.30[facility] Medical CenterComment on above:Performed By: #### ULAG #### [facility] [employer] [address] [place] [address] 33501 Abs.Neutrophil (Seg)4.73 k/uLNormal1.50-8.10[facility] Medical CenterComment on above:Performed By: #### ULAG #### [facility] [employer] [address] [place] [address] 99995 Basophils/100 WBC (Bld)1 %Normal0-2MSt. Mary's Medical Center Comment on above:Performed By: #### ULAG #### [address] [address] Eosinophils #/vol (Bld)0.17 10*3/uLNormal0.00-0.44[facility] Medical CenterComment on above:Performed By: #### ULAG #### [facility] [address] [place] [address] 37373 Eosinophils/100 WBC (Bld)2 %Normal1-4[facility] Medical CenterComment on above:Performed By: #### ULAG #### [facility] [employer] [address] [place] [address] 95909 Immature granulocytes #/vol (Bld)6 %Fwtp1JshuvCommunity Regional Medical CenterComment on above:Performed By: #### ULAG #### [facility] [employer] [address] [place] [address] 78129 Lymphocytes #/vol (Bld)2.24 10*3/uLNormal1.10-3.70[facility] Medical CenterComment on above:Performed By: #### ULAG #### [facility] [employer] [address] [place] [address] 81291 Lymphocytes/100 WBC (Bld)27 %Rucdir79-77LcjdkCommunity Regional Medical CenterComment on above:Performed By: #### ULAG #### [facility] [employer] [address] [place] [address] 86771 Monocytes #/vol (Bld)0.58 10*3/uLNormal0.10-1.20[facility] Medical CenterComment on above:Performed By: #### ULAG #### [facility] [address] [place] [address] 20709 Monocytes/100 WBC (Bld)7 %Normal3-12[facility] Medical CenterComment on above:Performed By: #### ULAG #### [facility] [address] [place] [address] 43250 Morphology Interp Rehan (Bld)ANISOCYTOSIS PRESENTNormalCommunity Regional Medical CenterComment on above:Performed By: #### ULAG #### [address] 18496 Neutrophil (Seg)57 %Cshupj24-32IsjfeCommunity Regional Medical Center Comment on above:Performed By: #### ULAG #### [address] 57903 Erythrocyte distribution width Ratio (RBC)14.6 %High11.8-14.4[facility] Medical CenterComment on above:Performed By: #### ULAG #### [address] 56322 Hematocrit Volume Fraction (Bld)38.5 %Gbpyzc92.3-47.1MSt. Mary's Medical CenterComment on above:Performed By: #### ULAG #### [address] 67692 Hemoglobin mass conc (Bld)11.5 g/dLLow11.9-15.1MSt. Mary's Medical CenterComment on above:Performed By: #### ULAG #### [address] [address] MCH Entitic mass (RBC)28.2 plQbbqqf97.2-33.5[facility] Medical CenterComment on above:Performed By: #### ULAG #### [address] [address]124 MCHC mass conc (RBC)29.9 g/aNMnrvzm90.4-34.8[facility] Medical CenterComment on above:Performed By: #### ULAG #### [address] 57630 MCV Entitic volume (RBC)94.4 tOKjnqnq73.6-102.9[facility] Medical CenterComment on above:Performed By: #### ULAG #### [facility] [address] [place] [address] 88653 NRBC Automated0.0 per 100 WBCNormal0.0[facility] Medical CenterComment on above:Performed By: #### ULAG #### [facility] [address] [place] [address] 58383 Platelet mean volume Entitic volume (Bld)10.5 fLNormal8.1-13.5[facility] Medical CenterComment on above:Performed By: #### ULAG #### [facility] [employer] [address] [place] [address] 94994 Platelets #/vol (Bld)264 10*3/hRNyfbrh090-923BvgaxCommunity Regional Medical CenterComment on above:Performed By: #### ULAG #### [facility] [employer] [address] [place] [address] 80595 RBC #/vol (Bld)4.08 10*6/uLNormal3.95-5.11[facility] CenterComment on above:Performed By: #### ULAG #### [facility] [employer] [address] [place] [address] 64161 WBC #/vol (Bld)8.3 10*3/uLNormal3.5-11.3MSt. Mary's Medical CenterComment on above:Performed By: #### ULAG #### [facility] [address] [place] [address] 84563 Auto Diff PerformedNOT REPORTEDOhioHealth Nelsonville Health CenterComment on above:Performed By: #### ULAG #### [facility] [employer] [address] [place] [address] 39543 Platelets #/vol (Bld)NOT REPORTEDOhioHealth Nelsonville Health CenterComment on above:Performed By: #### ULAG #### [facility] [employer] [address] [place] [address] 24246 RBC morphology finding Nom (Bld)NOT REPORTEDNoHocking Valley Community HospitalComment on above:Performed By: #### ULAG #### [facility] [address] [place] [address] WBC MorphologyNOT REPORTEDNoHocking Valley Community Hospital Comment on above:Performed By: #### ULAG #### [facility] [place] [address] Comp Metabolic Pr/rfx MGon 08-21-2018(cont.)NormalCommunity Regional Medical CenterComment on above:Result Comment: Average GFR for 30-39 years old: 107 mL/min/1.73sq m Chronic Kidney Disease: <60 mL/min/1.73sq m Kidney failure: <15 mL/min/1.73sq m eGFR calculated using average adult body mass. Additional eGFR calculator available at: http://www.Rapid RMS.Digital Lumens/multiple_crcl_2012.htmPerformed By: #### ULAG #### [facility] [employer] [address] [place] [address] Albumin mass conc2.9 g/dLLow3.5-5.2MSt. Mary's Medical Center Comment on above:Performed By: #### ULAG #### [facility] [address] [place] [address] Albumin/Globulin mass ratio0.7 {ratio}Low1.0-2.5[facility] Medical CenterComment on above:Performed By: #### ULAG #### [employer] [address] [place] [address] Alkaline Phos98 U/NVczjkc46-098AjwfoCommunity Regional Medical Center Comment on above:Performed By: #### ULAG #### [employer] [address] [place] [address] ALT enzyme act/vol19 U/LNormal5-33[facility] Comment on above:Performed By: #### ULAG #### [employer] [facility] [place] [address] Anion gap molar conc14 mmol/LNormal9-17[facility] Medical CenterComment on above:Performed By: #### ULAG #### [facility] [employer] [address] [place] [address] 49690 AST enzyme act/vol21 U/LNormal<32[facility] Comment on above:Performed By: #### ULAG #### [facility] [address] [place] [address] 72114 Bilirubin Ql (U)0.32 mg/dLNormal0.3-1.2MSt. Mary's Medical CenterComment on above:Performed By: #### ULAG #### [facility] [address] [place] [address] 35551 Calcium mass conc9.1 mg/dLNormal8.6-10.4[facility] Medical CenterComment on above:Performed By: #### ULAG #### [facility] [address] [place] [address] 43789 Chloride molar lhkr870 mmol/NSftcvp39-681LgweaCommunity Regional Medical CenterComment on above:Performed By: #### ULAG #### [employer] [address] [place] [address] 12202 CO2 molar conc23 mmol/ARrmtaz80-69IkddrCommunity Regional Medical Center Comment on above:Performed By: #### ULAG #### [employer] [address] [place] [address] 73408 Creatinine mass conc0.90 mg/dLNormal0.50-0.90[facility] Medical CenterComment on above:Performed By: #### ULAG #### [employer] [address] [place] [address] 33024 GFR, Amer>60Normal>60[facility] Medical CenterComment on above:Performed By: #### ULAG #### [address] [address] GFR,non Amer>60Normal>60[facility] Comment on above:Performed By: #### ULAG #### [address] 8[address]89 Glucose mass lahq378 mg/rDEodz34-62OhmlvSt. Mary's Medical Center Comment on above:Performed By: #### ULAG #### [address] [address]906 Potassium molar conc4.6 mmol/LNormal3.7-5.3MSt. Mary's Medical CenterComment on above:Performed By: #### ULAG #### [address] 09158 Protein mass conc6.9 g/dLNormal6.4-8.3MSt. Mary's Medical CenterComment on above:Performed By: #### ULAG #### [address] [address]28 Sodium molar ljzo507 mmol/WXgpdst729-427GjnxvCommunity Regional Medical CenterComment on above:Performed By: #### ULAG #### [address] 60153 Urea nitrogen mass conc17 mg/dLNormal6-20[facility] Medical CenterComment on above:Performed By: #### ULAG #### [address] 9[address]50 BUN/CRE RatioNOT REPORTEDNormal9-20[facility] Comment on above:Performed By: #### ULAG #### [address] [address] Staging:NOT REPORTEDNoHocking Valley Community HospitalComment on above:Performed By: #### ULAG #### [employer] [address] [place], [place] [id number] Cult,Bloodon [id number],BloodSpecimen Description .BLOOD Special Requests L AC 20ML Culture POSITIVE Blood Culture CALLED TO MIS Medina [phone] [id number] DIRECT GRAM STAIN FROM BOTTLE: GRAM POSITIVE COCCI IN CLUSTERS METHICILLIN RESISTANT STAPHYLOCOCCUS AUREUS For susceptibility, refer to previous culture. Report Status FINAL 08/21/2018NoHocking Valley Community HospitalComment on above:Performed By: #### ULAG #### [employer] [address] [place], [place] [id number] MRI FOOT LEFT W WO CONTRASTon [id number] FOOT LEFT W WO CONTRAST EXAMINATION: MRI [...] by: Murali Goff MD 08/21/18 Final resultNormalMercy Dameron HospitalMagnesiumon 08-21-2018 Magnesium mass conc2.4 mg/dLNormal1.6-2.6Mercy Dameron HospitalComment on above:Performed By: #### ULAG #### [employer] [address] [place] [address] Procalcitoninon [id number] mass conc0.27 ng/mLHigh<0.09Mercy Dameron HospitalComment on above:Result Comment: Suspected Sepsis: 0.09-0.49 [...] entered into the Change in Procalcitonin Calculator (www.lkenko-ocz-qixiulokvj.com) to determine the patient's Mortality Risk PrognosisPerformed By: #### ULAG #### [place] [address] [phone]-Upqhxbny Proteinon [id number] mass conc50.4 mg/LHigh0.0-5.0 [facility] Medical CenterComment on above:Performed By: #### LALO, TROPI, PRCAL, MYCM #### [place] [address] CBC with Diffon [id number]. Basophil0.08 k/uLNormal0.0-0.2MSt. Mary's Medical CenterComment on above:Performed By: #### LALO, TROPI, PRCAL, MYCM #### [place] [address] Abs.Imm.Granulocyte0.42 k/uLHigh0.00-0.30[facility] Medical CenterComment on above:Performed By: #### LALO, TROPI, PRCAL, MYCM #### [place] [address] Abs.Neutrophil (Seg)4.57 k/uLNormal1.8-7.7[facility] Medical CenterComment on above:Performed By: #### LACREY, TROPI, PRCAL, MYCM #### [place] [address] Basophils/100 WBC (Bld)1 %Normal0-2MSt. Mary's Medical Center Comment on above:Performed By: #### LALO, TROPI, PRCAL, MYCM #### [place] [address] Eosinophils #/vol (Bld)0.25 10*3/uLNormal0.0-0.4[facility] Medical CenterComment on above:Performed By: #### LACDS, TROPI, PRCAL, MYCM #### [employer] [address] [place] [address] 06237 Eosinophils/100 WBC (Bld)3 %Normal1-4[facility] Medical CenterComment on above:Performed By: #### LACDS, TROPI, PRCAL, MYCM #### [facility] [employer] [address] [place] [address] 89036 Immature granulocytes #/vol (Bld)5 %Dado2GwfdyCommunity Regional Medical CenterComment on above:Performed By: #### LACDS, TROPI, PRCAL, MYCM #### [facility] [employer] [address] [place] [address] 43072 Lymphocytes #/vol (Bld)2.32 10*3/uLNormal1.0-4.8[facility] Medical CenterComment on above:Performed By: #### LACDS, TROPI, PRCAL, MYCM #### [facility] [address] [place] [address] 22000 Lymphocytes/100 WBC (Bld)28 %Tremrw22-82ChnroCommunity Regional Medical CenterComment on above:Performed By: #### LACDS, TROPI, PRCAL, MYCM #### [facility] [address] [place] [address] 29144 Monocytes #/vol (Bld)0.66 10*3/uLNormal0.1-0.8[facility] Medical CenterComment on above:Performed By: #### LACDS, TROPI, PRCAL, MYCM #### [facility] [employer] [address] [place] [address] 12524 Monocytes/100 WBC (Bld)8 %High1-7[facility] Comment on above:Performed By: #### LACDS, TROPI, PRCAL, MYCM #### [employer] [address] [place] [address] 56883 Morphology Interp Rehan (Bld)ANISOCYTOSIS PRESENTNormalCommunity Regional Medical CenterComment on above:Performed By: #### LACREY, TROPI, PRCAL, MYCM #### [facility] [address] [place] [address] 73313 Neutrophil (Seg)55 %Oidjpi96-78PkinzCommunity Regional Medical Center Comment on above:Performed By: #### LACREY, TROPI, PRCAL, MYCM #### [facility] [employer] [address] [place] [address] 16268 Erythrocyte distribution width Ratio (RBC)14.6 %High11.8-14.4[facility] Medical CenterComment on above:Performed By: #### LALO, TROPI, PRCAL, MYCM #### [facility] [employer] [address] [place] [address] 67333 Hematocrit Volume Fraction (Bld)33.5 %Low36.3-47.1MSt. Mary's Medical CenterComment on above:Performed By: #### LALO, TROPI, PRCAL, MYCM #### [facility] [employer] [address] [place] [address] 22589 Hemoglobin mass conc (Bld)10.2 g/dLLow11.9-15.1MSt. Mary's Medical CenterComment on above:Performed By: #### LACDS, TROPI, PRCAL, MYCM #### [facility] [employer] [address] [place] [address] 92126 MCH Entitic mass (RBC)27.9 bwXaarbo52.2-33.5[facility] Medical CenterComment on above:Performed By: #### LACDS, TROPI, PRCAL, MYCM #### [employer] [address] [place] [address] 97571 MCHC mass conc (RBC)30.4 g/dWIdxthh49.4-34.8[facility] Medical CenterComment on above:Performed By: #### LACDS, TROPI, PRCAL, MYCM #### [facility] [employer] [address] [place] [address] MCV Entitic volume (RBC)91.5 tBPqbxiq21.6-102.9[facility] Medical CenterComment on above:Performed By: #### LACDS, TROPI, PRCAL, MYCM #### [facility] [employer] [address] [place] [address] NRBC Automated0.0 per 100 WBCNormal0.0[facility] Medical CenterComment on above:Performed By: #### LACDS, TROPI, PRCAL, MYCM #### [facility] [employer] [address] [place] [address] Platelet mean volume Entitic volume (Bld)11.0 fLNormal8.1-13.5[facility] Medical CenterComment on above:Performed By: #### LACDS, TROPI, PRCAL, MYCM #### [facility] [employer] [address] [place] [address] Platelets #/vol (Bld)211 10*3/vJXlctaw452-214MynqhCommunity Regional Medical CenterComment on above:Performed By: #### LACDS, TROPI, PRCAL, MYCM #### [place] [address] RBC #/vol (Bld)3.66 10*6/uLLow3.95-5.11[facility] Medical CenterComment on above:Performed By: #### LACDS, TROPI, PRCAL, MYCM #### [facility] [employer] [address] [place] [address] 29053 WBC #/vol (Bld)8.3 10*3/uLNormal3.5-11.3MSt. Mary's Medical CenterComment on above:Performed By: #### LACDS, TROPI, PRCAL, MYCM #### [employer] [facility] [place] [address] Auto Diff PerformedNOT REPORTEDOhioHealth Nelsonville Health CenterComment on above:Performed By: #### LACDS, TROPI, PRCAL, MYCM #### [employer] [address] [place] [address] 77329 Platelets #/vol (Bld)NOT REPORTEDOhioHealth Nelsonville Health CenterComment on above:Performed By: #### LACDS, TROPI, PRCAL, MYCM #### [employer] [address] [place] [address] 40521 RBC morphology finding Nom (Bld)NOT REPORTEDOhioHealth Nelsonville Health CenterComment on above:Performed By: #### LACDS, TROPI, PRCAL, MYCM #### [employer] [address] [place] [address] 27789 WBC MorphologyNOT REPORTEDOhioHealth Nelsonville Health Center Comment on above:Performed By: #### LACDS, TROPI, PRCAL, MYCM #### [employer] [address] [place] [address] 33196 Comp Metabolic Pr/rfx MGon 08-20-2018(cont.)Ohio[facility] Nelsonville Health CenterComment on above:Result Comment: Average GFR for 30-39 years old: 107 mL/min/1.73sq m Chronic Kidney Disease: <60 mL/min/1.73sq m Kidney failure: <15 mL/min/1.73sq m eGFR calculated using average adult body mass. Additional eGFR calculator available at: http://www.Rapid RMS.Digital Lumens/multiple_crcl_2012.htmPerformed By: #### LACDS, TROPI, PRCAL, MYCM #### [employer] [address] [place] [address] 40299 Albumin mass conc3.1 g/dLLow3.5-5.2[facility] Comment on above:Performed By: #### LACDS, TROPI, PRCAL, MYCM #### [facility] [employer] [address] [place] [address] 38229 Albumin/Globulin mass ratio0.9 {ratio}Low1.0-2.5[facility] Medical CenterComment on above:Performed By: #### LACDS, TROPI, PRCAL, MYCM #### [facility] [employer] [address] [place] [address] 22343 Alkaline Phos83 U/EVnbzvp16-385MlzzhCommunity Regional Medical Center Comment on above:Performed By: #### LACDS, TROPI, PRCAL, MYCM #### [facility] [employer] [address] [place] [address] 10101 ALT enzyme act/vol17 U/LNormal5-33Community [facility] Comment on above:Performed By: #### LACDS, TROPI, PRCAL, MYCM #### [facility] [employer] [address] [place] [address] 32263 Anion gap molar conc11 mmol/LNormal9-17[facility] CenterComment on above:Performed By: #### LACDS, TROPI, PRCAL, MYCM #### [facility] [employer] [address] [place] [address] 51319 AST enzyme act/vol18 U/LNormal<32[facility] Comment on above:Performed By: #### LACDS, TROPI, PRCAL, MYCM #### [facility] [employer] [address] [place] [address] 26206 Bilirubin Ql (U)0.29 mg/dLLow0.3-1.2MSt. Mary's Medical CenterComment on above:Performed By: #### LACDS, TROPI, PRCAL, MYCM #### [facility] [employer] [address] [place] [address] 13710 Calcium mass conc9.0 mg/dLNormal8.6-10.4[facility] CenterComment on above:Performed By: #### LACDS, TROPI, PRCAL, MYCM #### [facility] [employer] [address] [place] [address] 92436 Chloride molar jcet369 mmol/WSajlnu06-405YnofqCommunity Regional Medical CenterComment on above:Performed By: #### LACDS, TROPI, PRCAL, MYCM #### [facility] [employer] [address] [place] [address] 53114 CO2 molar conc27 mmol/IPnowws58-60QgrqmCommunity [facility] Comment on above:Performed By: #### LACDS, TROPI, PRCAL, MYCM #### [facility] [employer] [address] [place] [address] 49791 Creatinine mass conc0.97 mg/dLHigh0.50-0.90[facility] CenterComment on above:Performed By: #### LACDS, TROPI, PRCAL, MYCM #### [facility] [employer] [address] [place] [address] 37507 GFR, Amer>60Normal>60[facility] CenterComment on above:Performed By: #### LACDS, TROPI, PRCAL, MYCM #### [facility] [employer] [address] [place] [address] 78318 GFR,non Amer>60Normal>60[facility] Comment on above:Performed By: #### LACDS, TROPI, PRCAL, MYCM #### [facility] [employer] [address] [place] [address] 54944 Glucose mass ddcc411 mg/xLRztb29-17WcsqjSt. Mary's Medical Center Comment on above:Performed By: #### LACDS, TROPI, PRCAL, MYCM #### [facility] [employer] [address] [place] [address] 26135 Potassium molar conc4.4 mmol/LNormal3.7-5.3[facility] Dameron HospitalComment on above:Performed By: #### LACDS, TROPI, PRCAL, MYCM #### [facility] [employer] [address] [place] [address] 73418 Protein mass conc6.6 g/dLNormal6.4-8.3[facility]y Dameron HospitalComment on above:Performed By: #### LACDS, TROPI, PRCAL, MYCM #### [facility] [employer] [address] [place] [address] Sodium molar zckp149 mmol/GAktsot753-526AwtweCommunity Regional Medical CenterComment on above:Performed By: #### LACDS, TROPI, PRCAL, MYCM #### [facility] [employer] [address] [place] [address] Urea nitrogen mass conc15 mg/dLNormal6-20[facility] CenterComment on above:Performed By: #### LACDS, TROPI, PRCAL, MYCM #### [address] [address] BUN/CRE RatioNOT REPORTEDSaint Louis University Hospitalal9-20[facility] Comment on above:Performed By: #### LACDS, TROPI, PRCAL, MYCM #### [facility] [employer] [address] [place] [address] 62655 Staging:NOT REPORTEDNormalCommunity Regional Medical CenterComment on above:Performed By: #### LACDS, TROPI, PRCAL, MYCM #### [facility] [employer] [address] [place] [address] 36722 Magnesiumon 76-14-1468Erwurpeyj mass conc2.2 mg/dLNormal1.6-2.6 [facility] CenterComment on above:Performed By: #### LACDS, TROPI, PRCAL, MYCM #### [facility] [employer] [address] [place] [address] 47450 Sedimentation Rateon 18-73-4953Mklbrjkdcghbv Gbrt283 mmHigh0-20 [facility] CenterComment on above:Performed By: #### GRACE MAY PRCAL, MARYCRUZM #### [facility] [employer] [address] [place] [address] 80188 XR FOOT LEFT (MIN 3 VIEWS)on [id number] FOOT LEFT (MIN 3 VIEWS) EXAMINATION: 3 [...] Signed by: Andrey Angelo MD 08/20/18 Final resultNormalMerSonoma Developmental CenterCBC with Diffon [id number]. Basophil0.00 k/uLNormal0.0-0.2Mer[facility]eron HospitalComment on above: Performed By: #### GRACE MAY PRCAL, JAZMYN #### [facility] [employer] [address] [place] [address] 78831 Abs.Imm.Granulocyte0.42 k/uLHigh0.00-0.30[facility] Medical CenterComment on above:Performed By: #### GRACE MAY PRCAL, MYCM #### [facility] [address] [place] [address] 21554 Abs.Neutrophil (Seg)2.70 k/uLNormal1.8-7.7[facility] CenterComment on above:Performed By: #### GRACE MAY PRCAL, MYCM #### [facility] [employer] [address] [place] [address] 04481 Basophils/100 WBC (Bld)0 %Normal0-2[facility] Comment on above:Performed By: #### LACDS, TROPI, PRCAL, MYCM #### [facility] [employer] [address] [place] [address] 63037 Eosinophils #/vol (Bld)0.30 10*3/uLNormal0.0-0.4[facility] CenterComment on above:Performed By: #### LACDS, TROPI, PRCAL, MYCM #### [facility] [employer] [address] [place] [address] 42560 Eosinophils/100 WBC (Bld)5 %High1-4[facility] Comment on above:Performed By: #### LACDS, TROPI, PRCAL, MYCM #### [facility] [employer] [address] [place] [address] 35535 Immature granulocytes #/vol (Bld)7 %Gtqx2NgsqsCommunity Regional Medical CenterComment on above:Performed By: #### LACDS, TROPI, PRCAL, MYCM #### [address] [address] Lymphocytes #/vol (Bld)2.22 10*3/uLNormal1.0-4.8[facility] CenterComment on above:Performed By: #### LACDS, TROPI, PRCAL, MYCM #### [facility] [employer] [address] [place] [address] 31521 Lymphocytes/100 WBC (Bld)37 %Iknlie74-60LpthvCommunity Regional Medical CenterComment on above:Performed By: #### LACDS, TROPI, PRCAL, MYCM #### [facility] [employer] [address] [place] [address] 50076 Monocytes #/vol (Bld)0.36 10*3/uLNormal0.1-0.8[facility] CenterComment on above:Performed By: #### LACDS, TROPI, PRCAL, MYCM #### [facility] [employer] [address] [place] [address] 77871 Monocytes/100 WBC (Bld)6 %Normal1-7[facility] Comment on above:Performed By: #### LACDS, TROPI, PRCAL, MYCM #### [facility] [employer] [address] [place] [address] 57600 Morphology Interp Rehan (Bld)ANISOCYTOSIS PRESENTNormalCommunity Regional Medical CenterComment on above:Performed By: #### LACDS, TROPI, PRCAL, MYCM #### [facility] [employer] [address] [place] [address] 67161 Neutrophil (Seg)45 %Xptagy98-01CovamCommunity Regional Medical Center Comment on above:Performed By: #### LACDS, TROPI, PRCAL, MYCM #### [facility] [employer] [address] [place] [address] 41824 Erythrocyte distribution width Ratio (RBC)14.6 %High11.8-14.4[facility] Medical CenterComment on above:Performed By: #### LACDS, TROPI, PRCAL, MYCM #### [facility] [employer] [address] [place] [address] 14015 Hematocrit Volume Fraction (Bld)34.4 %Low36.3-47.1MSt. Mary's Medical CenterComment on above:Performed By: #### LACDS, TROPI, PRCAL, MYCM #### [facility] [employer] [address] [place] [address] 26880 Hemoglobin mass conc (Bld)10.4 g/dLLow11.9-15.1MSt. Mary's Medical CenterComment on above:Performed By: #### LACDS, TROPI, PRCAL, MYCM #### [employer] [address] [place] [address] 82369 MCH Entitic mass (RBC)28.0 tkZwfgie42.2-33.5[facility] Medical CenterComment on above:Performed By: #### LACDS, TROPI, PRCAL, MYCM #### [facility] [address] [place] [address] 64910 MCHC mass conc (RBC)30.2 g/aRIgejhv45.4-34.8[facility] Medical CenterComment on above:Performed By: #### LACDS, TROPI, PRCAL, MYCM #### [employer] [address] [place] [address] 18574 MCV Entitic volume (RBC)92.7 iMGbcbhi21.6-102.9[facility] Medical CenterComment on above:Performed By: #### LACDS, TROPI, PRCAL, MYCM #### [facility] [address] [place] [address] NRBC Automated0.3 per 100 WBCHigh0.0Community [facility] Medical CenterComment on above:Performed By: #### LACDS, TROPI, PRCAL, MYCM #### [facility] [address] [place] [address] 70547 Platelet mean volume Entitic volume (Bld)10.5 fLNormal8.1-13.5[facility] CenterComment on above:Performed By: #### LACDS, TROPI, PRCAL, MYCM #### [employer] [address] [place] [address] 35440 Platelets #/vol (Bld)168 10*3/iVHscvzi397-789HafflCommunity Regional Medical CenterComment on above:Performed By: #### LACDS, TROPI, PRCAL, MYCM #### [employer] [address] [place] [address] 76371 RBC #/vol (Bld)3.71 10*6/uLLow3.95-5.11[facility] CenterComment on above:Performed By: #### LACDS, TROPI, PRCAL, MYCM #### [employer] [address] [place] [address] 41090 WBC #/vol (Bld)6.0 10*3/uLNormal3.5-11.3Mer[facility] Dameron HospitalComment on above:Performed By: #### LACDS, TROPI, PRCAL, MYCM #### [employer] [address] [place] [address] 58086 Auto Diff PerformedNOT REPORTEDOhioHealth Nelsonville Health CenterComment on above:Performed By: #### LACDS, TROPI, PRCAL, MYCM #### [employer] [address] [place] [address] 39895 Platelets #/vol (Bld)NOT REPORTEDOhioHealth Nelsonville Health CenterComment on above:Performed By: #### LACDS, TROPI, PRCAL, MYCM #### [employer] [address] [place] [address] 88500 RBC morphology finding Nom (Bld)NOT REPORTEDOhioHealth Nelsonville Health CenterComment on above:Performed By: #### LACDS, TROPI, PRCAL, MYCM #### [employer] [address] [place] [address] 10758 WBC MorphologyNOT REPORTEDOhioHealth Nelsonville Health Center Comment on above:Performed By: #### LACDS, TROPI, PRCAL, MYCM #### [employer] [address] [place] [address] 42970 Comp Metabolic Pr/rfx MGon 08-19-2018(cont.)[facility] Nelson[facility] Health CenterComment on above:Result Comment: Average GFR for 30-39 years old: 107 mL/min/1.73sq m Chronic Kidney Disease: <60 mL/min/1.73sq m Kidney failure: <15 mL/min/1.73sq m eGFR calculated using average adult body mass. Additional eGFR calculator available at: http://www.[employer].com/multiple_crcl_2012.htmPerformed By: #### TERRYDS, TROPI, PRCAL, MYCM #### [facility] [employer] [address] [place] [address] 19033 Albumin mass conc2.7 g/dLLow3.5-5.2MSt. Mary's Medical Center Comment on above:Performed By: #### LACDS, TROPI, PRCAL, MYCM #### [facility] [employer] [address] [place] [address] 78584 Albumin/Globulin mass ratio0.8 {ratio}Low1.0-2.5[facility] CenterComment on above:Performed By: #### LACDS, TROPI, PRCAL, MYCM #### [facility] [employer] [address] [place] [address] 16567 Alkaline Phos78 U/LFugxbz06-448TxhcmCommunity Regional Medical Center Comment on above:Performed By: #### LACDS, TROPI, PRCAL, MYCM #### [facility] [employer] [address] [place] [address] 85247 ALT enzyme act/vol16 U/LNormal5-33[facility] Comment on above:Performed By: #### LACDS, TROPI, PRCAL, MYCM #### [facility] [employer] [address] [place] [address] 19588 Anion gap molar conc10 mmol/LNormal9-17[facility] CenterComment on above:Performed By: #### LACDS, TROPI, PRCAL, MYCM #### [facility] [employer] [address] [place] [address] 39766 AST enzyme act/vol16 U/LNormal<32[facility] Comment on above:Performed By: #### LACDS, TROPI, PRCAL, MYCM #### [facility] [employer] [address] [place] [address] 47892 Bilirubin Ql (U)0.21 mg/dLLow0.3-1.2MSt. Mary's Medical CenterComment on above:Performed By: #### LACDS, TROPI, PRCAL, MYCM #### [facility] [employer] [address] [place] [address] 25301 Calcium mass conc8.5 mg/dLLow8.6-10.4[facility] CenterComment on above:Performed By: #### LACDS, TROPI, PRCAL, MYCM #### [facility] [employer] [address] [place] [address] 07914 Chloride molar hxil904 mmol/GBgkflg49-830RrwuvCommunity Regional Medical CenterComment on above:Performed By: #### LACDS, TROPI, PRCAL, MYCM #### [facility] [employer] [address] [place] [address] CO2 molar conc24 mmol/RDwbifv44-32CpovcCommunity Regional Medical Center Comment on above:Performed By: #### LACDS, TROPI, PRCAL, MYCM #### [facility] [employer] [address] [place] [address] Creatinine mass conc0.88 mg/dLNormal0.50-0.90[facility] Medical CenterComment on above:Performed By: #### LACDS, TROPI, PRCAL, MYCM #### [facility] [employer] [address] [place] [address] 71655 GFR, Amer>60Normal>60[facility] Medical CenterComment on above:Performed By: #### LACDS, TROPI, PRCAL, MYCM #### [facility] [employer] [address] [place] [address] 42362 GFR,non Amer>60Normal>60[facility] Comment on above:Performed By: #### LACDS, TROPI, PRCAL, MYCM #### [facility] [employer] [address] [place] [address] 48783 Glucose mass xbcm830 mg/mLArom67-82MtoicSt. Mary's Medical Center Comment on above:Performed By: #### LACDS, TROPI, PRCAL, MYCM #### [facility] [employer] [address] [place] [address] 04246 Potassium molar conc4.0 mmol/LNormal3.7-5.3MSt. Mary's Medical CenterComment on above:Performed By: #### LACDS, TROPI, PRCAL, MYCM #### [facility] [employer] [address] [place] [address] 39047 Protein mass conc6.3 g/dLLow6.4-8.3[facility] Comment on above:Performed By: #### LACDS, TROPI, PRCAL, MYCM #### [facility] [employer] [address] [place] [address] 12377 Sodium molar nywi232 mmol/WUnipwb435-714RqpnfCommunity Regional Medical CenterComment on above:Performed By: #### LACDS, TROPI, PRCAL, MYCM #### [facility] [employer] [address] [place] [address] 42111 Urea nitrogen mass conc16 mg/dLNormal6-20[facility] CenterComment on above:Performed By: #### LACDS, TROPI, PRCAL, MYCM #### [facility] [employer] [address] [place] [address] 43740 BUN/CRE RatioNOT REPORTEDNormal9-20[facility] Comment on above:Performed By: #### LACDS, TROPI, PRCAL, MYCM #### [facility] [employer] [address] [place] [address] 13335 Staging:NOT REPORTEDNormalCommunity Regional Medical CenterComment on above:Performed By: #### LACDS, TROPI, PRCAL, MYCM #### [employer] [address] [place] [address] Cult, Bloodon [id number], BloodSpecimen Description .BLOOD Special Requests L HAND [...] REPORTED Trimethoprim/Sulfa <=10 SUSCEPTIBLE Vancomycin 1 SUSCEPTIBLENormalMercy Dameron HospitalComment on above: Performed By: #### LACDS, TROPI, PRCAL, MYCM #### [employer] [address] [place] [address] MRI CERVICAL SPINE W WO CONTRASTon [id number] CERVICAL SPINE W WO CONTRASTEXAMINATION: MRI OF [...] by: Bo Rodrigues MD 08/19/18 Final resultNormalMercy Dameron HospitalMRI LUMBAR SPINE W WO CONTRAST on [id number] LUMBAR SPINE W WO CONTRASTEXAMINATION: MRI OF [...] by: Bo Rodrigues MD 08/19/18 Final resultNormalMercy Dameron HospitalMRI THORACIC SPINE W WO CONTRASTon [id number] THORACIC SPINE W WO CONTRASTEXAMINATION: MRI OF [...] by: Bo Rodrigues MD 08/19/18 Final resultNormalMercy Dameron HospitalMagnesiumon 08-19-2018 Magnesium mass conc2.3 mg/dLNormal1.6-2.6Mercy Dameron HospitalComment on above:Performed By: #### LACDS, TROPI, PRCAL, MYCM #### [employer] [address] [place], [place] [address] Procalcitoninon 14-14-8981Ypgxfqy mass conc0.57 ng/mLHigh<0.09Mercy Dameron HospitalComment on above:Result Comment: Suspected Sepsis: 0.09-0.49 [...] entered into the Change in Procalcitonin Calculator (www.ecjnoe-khp-ongdqfglyz.com) to determine the patient's Mortality Risk PrognosisPerformed By: #### LALO, TROPI, PRCAL, MYCM #### [place] [address] CBC with Diffon [id number]. Basophil<0.20Slerga5.00-0.20[facility] Medical CenterComment on above:Performed By: #### LALO, TROPI, PRCAL, MYCM #### [place] [address] Abs.Imm.Granulocyte0.28 k/uLNormal0.00-0.30[facility] CenterComment on above:Performed By: #### LALO, TROPI, PRCAL, MYCM #### [place] [address] Abs.Neutrophil (Seg)3.23 k/uLNormal1.50-8.10[facility] CenterComment on above:Performed By: #### LACREY, TROPI, PRCAL, MYCM #### [address] [address] Basophils/100 WBC (Bld)0 %Normal0-2MercHunting[facility] Comment on above:Performed By: #### LACDS, TROPI, PRCAL, MYCM #### [address] [address] Eosinophils #/vol (Bld)0.15 10*3/uLNormal0.00-0.44[facility] CenterComment on above:Performed By: #### LACDS, TROPI, PRCAL, MYCM #### [address] [address] Eosinophils/100 WBC (Bld)3 %Normal1-4[facility] Medical CenterComment on above:Performed By: #### LACDS, TROPI, PRCAL, MYCM #### [facility] [address] [place] [address] 31742 Erythrocyte distribution width Ratio (RBC)14.7 %High11.8-14.4[facility] CenterComment on above:Performed By: #### LACDS, TROPI, PRCAL, MYCM #### [facility] [address] [place] [address] 76016 Hematocrit Volume Fraction (Bld)32.7 %Low36.3-47.1MSt. Mary's Medical CenterComment on above:Performed By: #### LACDS, TROPI, PRCAL, MYCM #### [facility] [employer] [address] [place] [address] 44300 Hemoglobin mass conc (Bld)10.1 g/dLLow11.9-15.1MSt. Mary's Medical CenterComment on above:Performed By: #### LACDS, TROPI, PRCAL, MYCM #### [facility] [employer] [address] [place] [address] 18413 Immature granulocytes #/vol (Bld)5 %Sfnw1BpjnsCommunity Regional Medical CenterComment on above:Performed By: #### LACDS, TROPI, PRCAL, MYCM #### [facility] [employer] [address] [place] [address] 99952 Lymphocytes #/vol (Bld)1.58 10*3/uLNormal1.10-3.70[facility] CenterComment on above:Performed By: #### LACDS, TROPI, PRCAL, MYCM #### [facility] [employer] [address] [place] [address] 11948 Lymphocytes/100 WBC (Bld)28 %Tnvlxi88-07JyzzwCommunity Regional Medical CenterComment on above:Performed By: #### LACDS, TROPI, PRCAL, MYCM #### [employer] [address] [place] [address] MC Entitic mass (RBC)28.2 kiRtovfi45.2-33.5[facility] Medical CenterComment on above:Performed By: #### LACDS, TROPI, PRCAL, MYCM #### [facility] [address] [place] [address] MCHC mass conc (RBC)30.9 g/yJVbojqm95.4-34.8[facility] Medical CenterComment on above:Performed By: #### LACDS, TROPI, PRCAL, MYCM #### [employer] [address] [place] [address] MC Entitic volume (RBC)91.3 kHWgeuuz54.6-102.9[facility] CenterComment on above:Performed By: #### LACDS, TROPI, PRCAL, MYCM #### [employer] [address] [place] [address] Monocytes #/vol (Bld)0.47 10*3/uLNormal0.10-1.20[facility] CenterComment on above:Performed By: #### LACDS, TROPI, PRCAL, MYCM #### [employer] [address] [place] [address] Monocytes/100 WBC (Bld)8 %Normal3-12[facility] Medical CenterComment on above:Performed By: #### LACDS, TROPI, PRCAL, MYCM #### [employer] [address] [place] [address] Neutrophil (Seg)56 %Eaemxi01-30MxlsoCommunity Regional Medical Center Comment on above:Performed By: #### LACDS, TROPI, PRCAL, MYCM #### [employer] [address] [place] [address] 63279 NRBC Automated0.0 per 100 WBCNormal0.0Community [facility] Medical CenterComment on above:Performed By: #### LACDS, TROPI, PRCAL, MYCM #### [facility] [employer] [address] [place] [address] 32952 Platelet mean volume Entitic volume (Bld)11.4 fLNormal8.1-13.5[facility] CenterComment on above:Performed By: #### LACDS, TROPI, PRCAL, MYCM #### [address] [address] Platelets #/vol (Bld)153 10*3/qCGsceoj987-180DtpytCommunity Regional Medical CenterComment on above:Performed By: #### LACDS, TROPI, PRCAL, MYCM #### [address] [address] RBC #/vol (Bld)3.58 10*6/uLLow3.95-5.11[facility] CenterComment on above:Performed By: #### LACDS, TROPI, PRCAL, MYCM #### [facility] [employer] [address] [place] [address] 04795 RBC morphology finding Nom (Bld)ANISOCYTOSIS PRESENTNormalCommunity Regional Medical CenterComment on above:Performed By: #### LACDS, TROPI, PRCAL, MYCM #### [address] [address] WBC #/vol (Bld)5.7 10*3/uLNormal3.5-11.3MSt. Mary's Medical CenterComment on above:Performed By: #### LACDS, TROPI, PRCAL, MYCM #### [facility] [employer] [address] [place] [address] 19898 Auto Diff PerformedNOT REPORTEDNormalMercy New Auburn Medical CenterComment on above:Performed By: #### LACDS, TROPI, PRCAL, MYCM #### [employer] [address] [place] [address] 60665 Platelets #/vol (Bld)NOT REPORTEDOhioHealth Nelsonville Health CenterComment on above:Performed By: #### LACREY, TROPI, PRCAL, MYCM #### [employer] [address] [place] [address] WBC MorphologyNOT REPORTEDOhioHealth Nelsonville Health Center Comment on above:Performed By: #### LALO, TROPI, PRCAL, MYCM #### [employer] [address] [place] [address] Comp Metabolic Pr/rfx MGon 08-18-2018(cont.)NormalCommunity Regional Medical CenterComment on above:Result Comment: Average GFR for 30-39 years old: 107 mL/min/1.73sq m Chronic Kidney Disease: <60 mL/min/1.73sq m Kidney failure: <15 mL/min/1.73sq m eGFR calculated using average adult body mass. Additional eGFR calculator available at: http://www.[employer]/multiple_crcl_2012.htmPerformed By: #### LACREY, TROPI, PRCAL, MYCM #### [employer] [address] [place] [address] 19831 Albumin mass conc2.7 g/dLLow3.5-5.2[facility] Comment on above:Performed By: #### LACDS, TROPI, PRCAL, MYCM #### [employer] [address] [place] [address] 71126 Albumin/Globulin mass ratio0.8 {ratio}Low1.0-2.5[facility] Medical CenterComment on above:Performed By: #### LACDS, TROPI, PRCAL, MYCM #### [employer] [address] [place] [address] 22426 Alkaline Phos82 U/PWydrbl58-765DvfgrCommunity Regional Medical Center Comment on above:Performed By: #### LACDS, TROPI, PRCAL, MYCM #### [facility] [employer] [address] [place] [address] 08779 ALT enzyme act/vol19 U/LNormal5-33[facility] Comment on above:Performed By: #### LACDS, TROPI, PRCAL, MYCM #### [facility] [employer] [address] [place] [address] 02366 Anion gap molar conc8 mmol/LLow9-17[facility] Comment on above:Performed By: #### LACDS, TROPI, PRCAL, MYCM #### [facility] [employer] [address] [place] [address] 18552 AST enzyme act/vol17 U/LNormal<32[facility] Comment on above:Performed By: #### LACDS, TROPI, PRCAL, MYCM #### [facility] [employer] [address] [place] [address] 40381 Bilirubin Ql (U)0.24 mg/dLLow0.3-1.2MSt. Mary's Medical CenterComment on above:Performed By: #### LACDS, TROPI, PRCAL, MYCM #### [facility] [employer] [address] [place] [address] 20857 Calcium mass conc8.2 mg/dLLow8.6-10.4[facility] Medical CenterComment on above:Performed By: #### LACDS, TROPI, PRCAL, MYCM #### [facility] [employer] [address] [place] [address] 92731 Chloride molar btzp195 mmol/QPstnge40-625KpkubCommunity Regional Medical CenterComment on above:Performed By: #### LACDS, TROPI, PRCAL, MYCM #### [facility] [employer] [address] [place] [address] 70379 CO2 molar conc25 mmol/MKfsxfj99-94FknhfCommunity Regional Medical Center Comment on above:Performed By: #### LACDS, TROPI, PRCAL, MYCM #### [facility] [employer] [address] [place] [address] 71691 Creatinine mass conc0.94 mg/dLHigh0.50-0.90Community Regional Medical CenterComment on above:Performed By: #### LACDS, TROPI, PRCAL, MYCM #### [facility] [employer] [address] [place] [address] 33177 GFR, Amer>60Normal>60Community Regional Medical CenterComment on above:Performed By: #### LACDS, TROPI, PRCAL, MYCM #### [facility] [employer] [address] [place] [address] 03291 GFR,non Amer>60Normal>60[facility] Comment on above:Performed By: #### LACDS, TROPI, PRCAL, MYCM #### [facility] [employer] [address] [place] [address] 05158 Glucose mass zjke794 mg/aVYltc13-28DegdcSt. Mary's Medical Center Comment on above:Performed By: #### LACDS, TROPI, PRCAL, MYCM #### [facility] [employer] [address] [place] [address] 12566 Potassium molar conc4.1 mmol/LNormal3.7-5.3M[facility]y [facility] HospitalComment on above:Performed By: #### LACDS, TROPI, PRCAL, MYCM #### [facility] [employer] [address] [place] [address] 28768 Protein mass conc6.2 g/dLLow6.4-8.3[facility] Comment on above:Performed By: #### LACDS, TROPI, PRCAL, MYCM #### [facility] [address] [place] [address] 12216 Sodium molar bqwd534 mmol/BCkzmeu765-837JoineCommunity Regional Medical CenterComment on above:Performed By: #### LACDS, TROPI, PRCAL, MYCM #### [facility] [employer] [address] [place] [address] 78726 Urea nitrogen mass conc14 mg/dLNormal6-20Community Regional Medical CenterComment on above:Performed By: #### LACDS, TROPI, PRCAL, MYCM #### [facility] [employer] [address] [place] [address] 81001 BUN/CRE RatioNOT REPORTEDNonovant health new hanover [facility] center920[facility] Comment on above:Performed By: #### LACDS, TROPI, PRCAL, MYCM #### [facility] [employer] [address] [place] [address] 45225 Staging:NOT REPORTEDNormalCommunity Regional Medical CenterComment on above:Performed By: #### LACDS, TROPI, PRCAL, MYCM #### [facility] [employer] [address] [place] [address] 90365 Magnesiumon 42-82-6490Xqptgnfqj mass conc2.3 mg/dLNormal1.6-2.6 [facility] Medical CenterComment on above:Performed By: #### LACDS, TROPI, PRCAL, MYCM #### [facility] [employer] [address] [place] [address] 18517 Vancomycin Troughon 25-75-8431Rfwkvziqek Gftxlf54.7 ug/mLNormal 10.0-20.0Community Regional Medical CenterComment on above:Result Comment: Higher trough serum vancomycin concentrations of 15-20 ug/mL are recommended for complicated infections such as bacteremia, endocarditis, osteomyelitis, meningitis, and hospital acquired pneumonia.Performed By: #### LACDS, TROPI, PRCAL, MYCM #### [facility] [employer] [address] [place] [address] 06818 Date last dose,NOT REPORTEDNormalCommunity Regional Medical Center Comment on above:Performed By: #### DAMIEN MAYI, PRCAL, MYCM #### [facility] [employer] [address] [place] [address] 66980 Dose amount,NOT REPORTEDNormalCommunity Regional Medical Center Comment on above:Performed By: #### DAMIEN MAYI, PRCAL, MYCM #### [facility] [employer] [address] [place] [address] 39470 Time last dose,NOT REPORTEDNormalCommunity Regional Medical Center Comment on above:Performed By: #### DAMIEN MAYI, PRCAL, MYCM #### [facility] [employer] [address] [place] [address] 49820 [phone]-Sjmhefwc Proteinon 03-59-8685LNJ mass dtzn699.1 mg/LHigh0.0-5.0 Community Regional Medical CenterComment on above:Performed By: #### GRACE MAY, PRCAL, MYCM #### [facility] [employer] [address] [place] [address] 08023 CBC with Diffon [id number]. Basophil0.00 k/uLNormal0.0-0.2MSt. Mary's Medical CenterComment on above:Performed By: #### DAMIEN MAYI, PRCAL, MYCM #### [facility] [employer] [address] [place] [address] 63971 Abs.Imm.Granulocyte0.13 k/uLNormal0.00-0.30Community Regional Medical CenterComment on above:Performed By: #### LALO TROPI, PRCAL, MYCM #### [facility] [employer] [address] [place] [address] 05629 Abs.Neutrophil (Seg)4.35 k/uLNormal1.8-7.7Community Regional Medical CenterComment on above:Performed By: #### LACDS, TROPI, PRCAL, MYCM #### [address] [address] Basophils/100 WBC (Bld)0 %Normal0-2MSt. Mary's Medical Center Comment on above:Performed By: #### LACDS, TROPI, PRCAL, MYCM #### [address] [address] Eosinophils #/vol (Bld)0.06 10*3/uLNormal0.0-0.4Community Regional Medical CenterComment on above:Performed By: #### LACDS, TROPI, PRCAL, MYCM #### [address] [address] Eosinophils/100 WBC (Bld)1 %Normal1-4Community Regional Medical CenterComment on above:Performed By: #### LACDS, TROPI, PRCAL, MYCM #### [address] [address] Immature granulocytes #/vol (Bld)2 %Ctun5LacdxCommunity Regional Medical CenterComment on above:Performed By: #### LACDS, TROPI, PRCAL, MYCM #### [address] [address] Lymphocytes #/vol (Bld)1.32 10*3/uLNormal1.0-4.8Community Regional Medical CenterComment on above:Performed By: #### LACDS, TROPI, PRCAL, MYCM #### [address] [address] Lymphocytes/100 WBC (Bld)21 %Cdj46-91OwkchCommunity Regional Medical CenterComment on above:Performed By: #### LACDS, TROPI, PRCAL, MYCM #### [address] [place] [address] Monocytes #/vol (Bld)0.44 10*3/uLNormal0.1-0.8Community Regional Medical CenterComment on above:Performed By: #### LACDS, TROPI, PRCAL, MYCM #### [facility] [address] [place] [address] 66726 Monocytes/100 WBC (Bld)7 %Normal1-7[facility] Comment on above:Performed By: #### LACDS, TROPI, PRCAL, MYCM #### [facility] [employer] [address] [place] [address] 75069 Morphology Interp Rehan (Bld)ANISOCYTOSIS PRESENTNormalCommunity Regional Medical CenterComment on above:Result Comment: INCREASED BANDS PRESENT 1+ TEARDROPSPerformed By: #### LACDS, TROPI, PRCAL, MYCM #### [facility] [employer] [address] [place] [address] 80345 Neutrophil (Seg)69 %Nkbf96-24MpueyCommunity Regional Medical Center Comment on above:Performed By: #### LACDS, TROPI, PRCAL, MYCM #### [facility] [employer] [address] [place] [address] 18294 Erythrocyte distribution width Ratio (RBC)14.8 %High11.8-14.4Community Regional Medical CenterComment on above:Performed By: #### LACDS, TROPI, PRCAL, MYCM #### [facility] [employer] [address] [place] [address] 87974 Hematocrit Volume Fraction (Bld)33.3 %Low36.3-47.1MSt. Mary's Medical CenterComment on above:Performed By: #### LACDS, TROPI, PRCAL, MYCM #### [facility] [employer] [address] [place] [address] 61922 Hemoglobin mass conc (Bld)10.2 g/dLLow11.9-15.1MSt. Mary's Medical CenterComment on above:Performed By: #### LACREY, TROPI, PRCAL, MYCM #### [facility] [employer] [address] [place] [address] 06712 MCH Entitic mass (RBC)28.3 loGkdqcx73.2-33.5Community Regional Medical CenterComment on above:Performed By: #### LACREY, TROPI, PRCAL, MYCM #### [facility] [employer] [address] [place] [address] 93189 MCHC mass conc (RBC)30.6 g/yIXcsqlh32.4-34.8Community Regional Medical CenterComment on above:Performed By: #### LALO, TROPI, PRCAL, MYCM #### [facility] [employer] [address] [place] [address] MCV Entitic volume (RBC)92.2 bBQbgmkf93.6-102.9Community Regional Medical CenterComment on above:Performed By: #### LACREY, TROPI, PRCAL, MYCM #### [facility] [employer] [address] [place] [address] NRBC Automated0.0 per 100 WBCNormal0.0Community Regional Medical CenterComment on above:Performed By: #### LACREY, TROPI, PRCAL, MYCM #### [facility] [employer] [address] [place] [address] Platelet mean volume Entitic volume (Bld)11.5 fLNormal8.1-13.5Community Regional Medical CenterComment on above:Performed By: #### LACDS, TROPI, PRCAL, MYCM #### [facility] [employer] [address] [place] [address] Platelets #/vol (Bld)149 10*3/zIKhouoy627-925TbcpwCommunity Regional Medical CenterComment on above:Performed By: #### LACDS, TROPI, PRCAL, MYCM #### [employer] [address] [place] [address] 22990 RBC #/vol (Bld)3.61 10*6/uLLow3.95-5.11[facility] HospitalComment on above:Performed By: #### LACDS, TROPI, PRCAL, MYCM #### [employer] [address] [place] [address] 32576 WBC #/vol (Bld)6.3 10*3/uLNormal3.5-11.3Mer[facility]eron HospitalComment on above:Performed By: #### LACDS, TROPI, PRCAL, MYCM #### [employer] [address] [place] [address] 42943 Auto Diff PerformedNOT REPORTEDOhioHealth Nelsonville Health CenterComment on above:Performed By: #### LACDS, TROPI, PRCAL, MYCM #### [employer] [address] [place] [address] 12533 Platelets #/vol (Bld)NOT REPORTEDOhioHealth Nelsonville Health CenterComment on above:Performed By: #### LACDS, TROPI, PRCAL, MYCM #### [employer] [address] [place] [address] 31997 RBC morphology finding Nom (Bld)NOT REPORTEDNoHocking Valley Community HospitalComment on above:Performed By: #### LACDS, TROPI, PRCAL, MYCM #### [employer] [address] [place] [address] 66720 WBC MorphologyNOT REPORTEDOhioHealth Nelsonville Health Center Comment on above:Performed By: #### LACDS, TROPI, PRCAL, MYCM #### [employer] [address] [place] [address] 29476 Comp Metabolic Pr/rfx MGon 08-17-2018(cont.)NormalCommunity Regional Medical CenterComment on above:Result Comment: Average GFR for 30-39 years old: 107 mL/min/1.73sq m Chronic Kidney Disease: <60 mL/min/1.73sq m Kidney failure: <15 mL/min/1.73sq m eGFR calculated using average adult body mass. Additional eGFR calculator available at: http://www.[employer]/multiple_crcl_2012.htmPerformed By: #### LACDS, TROPI, PRCAL, MYCM #### [employer] [address] [place] [address] 44232 Albumin mass conc2.4 g/dLLow3.5-5.2MSt. Mary's Medical Center Comment on above:Performed By: #### LACDS, TROPI, PRCAL, MYCM #### [employer] [address] [place] [address] 96951 Albumin/Globulin mass ratio0.7 {ratio}Low1.0-2.5Community Regional Medical CenterComment on above:Performed By: #### LACDS, TROPI, PRCAL, MYCM #### [employer] [address] [place] [address] 98314 Alkaline Phos76 U/YVbrais24-645YjxwlCommunity Regional Medical Center Comment on above:Performed By: #### LACDS, TROPI, PRCAL, MYCM #### [employer] [address] [place] [address] 13766 ALT enzyme act/vol25 U/LNormal5-33[facility] Comment on above:Performed By: #### LACDS, TROPI, PRCAL, MYCM #### [employer] [address] [place] [address] Anion gap molar conc8 mmol/LLow9-17[facility] Comment on above:Performed By: #### LACDS, TROPI, PRCAL, MYCM #### [employer] [address] [place] [address] [place] [address] AST enzyme act/vol26 U/LNormal<32MerSonoma Developmental Center Comment on above:Performed By: #### LACDS, TROPI, PRCAL, MYCM #### [facility] [employer] [address] [place] [address] Bilirubin Ql (U)0.34 mg/dLNormal0.3-1.2Mer[facility] Dameron HospitalComment on above:Performed By: #### LACDS, TROPI, PRCAL, MYCM #### [facility] [employer] [address] [place] [address] Calcium mass conc7.8 mg/dLLow8.6-10.4Community Regional Medical CenterComment on above:Performed By: #### LACDS, TROPI, PRCAL, MYCM #### [facility] [employer] [address] [place] [address] Chloride molar conc99 mmol/ZXftdhs35-756DombtSonoma Developmental CenterComment on above:Performed By: #### LACDS, TROPI, PRCAL, MYCM #### [facility] [employer] [address] [place] [address] 17986 CO2 molar conc23 mmol/FSotaxk34-72YmjbcCommunity Regional Medical Center Comment on above:Performed By: #### LACDS, TROPI, PRCAL, MYCM #### [facility] [employer] [address] [place] [address] 36495 Creatinine mass conc1.04 mg/dLHigh0.50-0.90MerSonoma Developmental CenterComment on above:Performed By: #### LACDS, TROPI, PRCAL, MYCM #### [employer] [address] [place] [address] GFR, Amer>60Normal>60MerSonoma Developmental CenterComment on above:Performed By: #### LACDS, TROPI, PRCAL, MYCM #### [facility] [employer] [address] [place] [address] 64330 GFR,non Amer59 mL/minLow>60[facility] Comment on above:Performed By: #### LACREY, TROPI, PRCAL, MYCM #### [facility] [employer] [address] [place] [address] 85669 Glucose mass edvl828 mg/mZMlzx67-58McjhpSt. Mary's Medical Center Comment on above:Performed By: #### LACDS, TROPI, PRCAL, MYCM #### [address] [address]673 Potassium molar conc3.8 mmol/LNormal3.7-5.3MSt. Mary's Medical CenterComment on above:Performed By: #### LACREY, TROPI, PRCAL, MYCM #### [address] [address] Protein mass conc5.8 g/dLLow6.4-8.3MSt. Mary's Medical Center Comment on above:Performed By: #### LACDS, TROPI, PRCAL, MYCM #### [address] [address] Sodium molar vbwz239 mmol/MWxf814-695RjzmaCommunity Regional Medical CenterComment on above:Performed By: #### LACDS, TROPI, PRCAL, MYCM #### [facility] [employer] [address] [place] [address] 68907 Urea nitrogen mass conc15 mg/dLNormal6-20[facility] Regional Medical CenterComment on above:Performed By: #### LACDS, TROPI, PRCAL, MYCM #### [place] [address] BUN/CRE RatioNOT REPORTEDNormal9-20[facility] Comment on above:Performed By: #### LACDS, TROPI, PRCAL, MYCM #### [facility] [employer] [address] [place] [address] 36736 Staging:NOT REPORTEDNormalCommunity Regional Medical CenterComment on above:Performed By: #### DAMIEN MAYI, PRCAL, MYCM #### [facility] [employer] [address] [place] [address] 57683 Magnesiumon 69-14-7781Ttdlrgyvt mass conc2.2 mg/dLNormal1.6-2.6 [facility] Medical CenterComment on above:Performed By: #### LALO, DAMIENI, PRCAL, MYCM #### [facility] [employer] [address] [place] [address] 33451 Procalcitoninon 15-07-3527Zylykyn mass conc1.48 ng/mLHigh<0.09Community Regional Medical CenterComment on above:Result Comment: Suspected Sepsis: [...] entered into the Change in Procalcitonin Calculator ([email or web address]-zxo-ytahfzzxcr.com) to determine the patient's Mortality Risk PrognosisPerformed By: #### GRACE MAY, PRCAL, MYCM #### [facility] [employer] [address] [place] [address] 34082 Sedimentation Rateon 43-51-9513Oriqyvqkpkubk Rate97 mmHigh0-20[facility] Regional Medical CenterComment on above:Performed By: #### DAMIEN MAYI, PRCAL, MYCM #### [facility] [employer] [address] [place] [address] CBC with Diffon [id number]. Basophil0.00 k/uLNormal0.00-0.20 [facility] Medical CenterComment on above:Performed By: #### LACDS, TROPI, PRCAL, MYCM #### [facility] [employer] [address] [place] [address] Abs.Imm.Granulocyte0.11 k/uLNormal0.00-0.30[facility] Medical CenterComment on above:Performed By: #### LACDS, TROPI, PRCAL, MYCM #### [facility] [employer] [address] [place] [address] Abs.Neutrophil (Seg)4.60 k/uLNormal1.50-8.10[facility] Medical CenterComment on above:Performed By: #### LACDS, TROPI, PRCAL, MYCM #### [facility] [employer] [address] [place] [address] 26255 Basophils/100 WBC (Bld)0 %Normal0-2MSt. Mary's Medical Center Comment on above:Performed By: #### LACDS, TROPI, PRCAL, MYCM #### [address] [address] Eosinophils #/vol (Bld)0.00 10*3/uLNormal0.00-0.44[facility] Medical CenterComment on above:Performed By: #### LACDS, TROPI, PRCAL, MYCM #### [facility] [employer] [address] [place] [address] 60767 Eosinophils/100 WBC (Bld)0 %Low1-4[facility] Comment on above:Performed By: #### LACDS, TROPI, PRCAL, MYCM #### [facility] [employer] [address] [place] [address] 02949 Immature granulocytes #/vol (Bld)2 %Sbux2NoxaiCommunity Regional Medical CenterComment on above:Performed By: #### LACDS, TROPI, PRCAL, MYCM #### [facility] [address] [place] [address] 74484 Lymphocytes #/vol (Bld)0.67 10*3/uLLow1.10-3.70[facility] Medical CenterComment on above:Performed By: #### LACDS, TROPI, PRCAL, MYCM #### [facility] [employer] [address] [place] [address] 57512 Lymphocytes/100 WBC (Bld)12 %Pho71-38MdlopCommunity Regional Medical CenterComment on above:Performed By: #### LACDS, TROPI, PRCAL, MYCM #### [facility] [employer] [address] [place] [address] 07591 Monocytes #/vol (Bld)0.22 10*3/uLNormal0.10-1.20[facility] Medical CenterComment on above:Performed By: #### LACDS, TROPI, PRCAL, MYCM #### [facility] [employer] [address] [place] [address] 84978 Monocytes/100 WBC (Bld)4 %Normal3-12Community Regional Medical CenterComment on above:Performed By: #### LACDS, TROPI, PRCAL, MYCM #### [facility] [employer] [address] [place] [address] 76423 Morphology Interp Rehan (Bld)ANISOCYTOSIS PRESENTNormalCommunity Regional Medical CenterComment on above:Result Comment: INCREASED BANDS PRESENT 1+ TEARDROPSPerformed By: #### LACDS, TROPI, PRCAL, MYCM #### [address] [address] Neutrophil (Seg)82 %Axcp35-60MdrbjCommunity Regional Medical Center Comment on above:Performed By: #### LACDS, TROPI, PRCAL, MYCM #### [facility] [employer] [address] [place] [address] Erythrocyte distribution width Ratio (RBC)15.1 %High11.8-14.4Community Regional Medical CenterComment on above:Performed By: #### LACDS, TROPI, PRCAL, MYCM #### [facility] [employer] [address] [place] [address] Hematocrit Volume Fraction (Bld)34.1 %Low36.3-47.1MSt. Mary's Medical CenterComment on above:Performed By: #### LACREY, TROPI, PRCAL, MYCM #### [facility] [employer] [address] [place] [address] 49275 Hemoglobin mass conc (Bld)10.0 g/dLLow11.9-15.1MSt. Mary's Medical CenterComment on above:Performed By: #### LACDS, TROPI, PRCAL, MYCM #### [address] [address] MCH Entitic mass (RBC)28.7 yqUuvsvb72.2-33.5Community Regional Medical CenterComment on above:Performed By: #### LACDS, TROPI, PRCAL, MYCM #### [facility] [employer] [address] [place] [address] 34129 MCHC mass conc (RBC)29.3 g/uGSyqctc56.4-34.8[facility] Medical CenterComment on above:Performed By: #### LACDS, TROPI, PRCAL, MYCM #### [facility] [employer] [address] [place] [address] 02534 MCV Entitic volume (RBC)98.0 sQGbdyuh83.6-102.9[facility] Medical CenterComment on above:Performed By: #### LACDS, TROPI, PRCAL, MYCM #### [facility] [address] [place] [address] 60030 NRBC Automated0.0 per 100 WBCNormal0.0Community Regional Medical CenterComment on above:Performed By: #### LACDS, TROPI, PRCAL, MYCM #### [facility] [address] [place] [address] 57512 Platelet mean volume Entitic volume (Bld)11.1 fLNormal8.1-13.5[facility] Medical CenterComment on above:Performed By: #### LACDS, TROPI, PRCAL, MYCM #### [facility] [employer] [address] [place] [address] 27669 Platelets #/vol (Bld)119 10*3/qOBjb617-004ErxdkCommunity Regional Medical CenterComment on above:Performed By: #### LACDS, TROPI, PRCAL, MYCM #### [facility] [address] [place] [address] 99482 RBC #/vol (Bld)3.48 10*6/uLLow3.95-5.11[facility] Medical CenterComment on above:Performed By: #### LACDS, TROPI, PRCAL, MYCM #### [facility] [address] [place] [address] 70118 WBC #/vol (Bld)5.6 10*3/uLNormal3.5-11.3MSt. Mary's Medical CenterComment on above:Performed By: #### LACDS, TROPI, PRCAL, MYCM #### [employer] [address] [place] [address] 06339 Auto Diff PerformedNOT REPORTEDSaint Louis University HospitalalCommunity Regional Medical CenterComment on above:Performed By: #### LACDS, TROPI, PRCAL, MYCM #### [facility] [address] [place] [address] 27350 Platelets #/vol (Bld)NOT REPORTEDNormTrumbull Regional Medical CenterComment on above:Performed By: #### LACREY, TROPI, PRCAL, MYCM #### [facility] [address] [place] [address] RBC morphology finding Nom (Bld)NOT REPORTEDNormTrumbull Regional Medical CenterComment on above:Performed By: #### LACDS, TROPI, PRCAL, MYCM #### [facility] [address] [place] [address] WBC MorphologyNOT REPORTEDNoHocking Valley Community Hospital Comment on above:Performed By: #### LACREY, TROPI, PRCAL, MYCM #### [facility] [employer] [address] [place] [address] CT HEAD WO CONTRASTon [id number] HEAD WO CONTRASTEXAMINATION: CT OF THE HEAD [...] Signed by: Erica Angeles MD 08/16/18 Final resultNormalCommunity Regional Medical CenterCalcium, [employer] 08-16-2018 Calcium mass conc0.99 mmol/LLow1.13-1.33MerSonoma Developmental CenterComment on above:Performed By: #### LACDS, TROPI, PRCAL, MYCM #### [employer] [address] [place] [address] Comp Metabolic Pr/rfx MGon 08-16-2018(cont.)NormalCommunity Regional Medical CenterComment on above:Result Comment: Average GFR for 30-39 years old: 107 mL/min/1.73sq m Chronic Kidney Disease: <60 mL/min/1.73sq m Kidney failure: <15 mL/min/1.73sq m eGFR calculated using average adult body mass. Additional eGFR calculator available at: http://www.[employer]/multiple_crcl_2012.htmPerformed By: #### PT, CMPX, MG, CDP #### [employer] [address] [place] [address] 72338 Albumin mass conc2.3 g/dLLow3.5-5.2MSt. Mary's Medical Center Comment on above:Performed By: #### PT, CMPX, MG, CDP #### [employer] [facility] [place] [address] Albumin/Globulin mass ratio0.7 {ratio}Low1.0-2.5Community Regional Medical CenterComment on above:Performed By: #### PT, CMPX, MG, CDP #### [employer] [facility] [place] [address] Alkaline Phos67 U/NZyuhvx18-695AdxemCommunity Regional Medical Center Comment on above:Performed By: #### PT, CMPX, MG, CDP #### [employer] [address] [place] [address] ALT enzyme act/vol33 U/LNormal5-33[facility] Comment on above:Performed By: #### PT, CMPX, MG, CDP #### [employer] [facility] [place] [address] Anion gap molar conc11 mmol/LNormal9-17Community Regional Medical CenterComment on above:Performed By: #### PT, CMPX, MG, CDP #### [employer] [address] [place] [address] 54177 AST enzyme act/vol41 U/LHigh<32[facility] Comment on above:Performed By: #### PT, CMPX, MG, CDP #### [facility] [employer] [address] [place] [address] 35233 Bilirubin Ql (U)0.40 mg/dLNormal0.3-1.2MSt. Mary's Medical CenterComment on above:Performed By: #### PT, CMPX, MG, CDP #### [employer] [address] [place] [address] 67714 Calcium mass conc7.3 mg/dLLow8.6-10.4Community Regional Medical CenterComment on above:Performed By: #### PT, CMPX, MG, CDP #### [employer] [address] [place] [address] 55835 Chloride molar bbtr632 mmol/MNetxgp89-866NwndvCommunity Regional Medical CenterComment on above:Performed By: #### PT, CMPX, MG, CDP #### [employer] [address] [place] [address] CO2 molar conc18 mmol/KAmm05-90WbmpfCommunity Regional Medical Center Comment on above:Performed By: #### PT, CMPX, MG, CDP #### [employer] [address] [place] [address] 87056 Creatinine mass conc1.09 mg/dLHigh0.50-0.90[facility] Medical CenterComment on above:Performed By: #### PT, CMPX, MG, CDP #### [employer] [address] [place] [address] 26262 GFR, Amer>60Normal>60MerSonoma Developmental CenterComment on above:Performed By: #### PT, CMPX, MG, CDP #### [facility] [address] [place] [address] GFR,non Amer56 mL/minLow>60[facility] Comment on above:Performed By: #### PT, CMPX, MG, CDP #### [facility] [employer] [address] [place] [address] 17276 Glucose mass rcmj941 mg/xDLovv97-67SzhitSt. Mary's Medical Center Comment on above:Performed By: #### PT, CMPX, MG, CDP #### [facility] [employer] [address] [place] [address] 36008 Potassium molar conc3.6 mmol/LLow3.7-5.3MSt. Mary's Medical CenterComment on above:Performed By: #### PT, CMPX, MG, CDP #### [facility] [employer] [address] [place] [address] 56592 Protein mass conc5.5 g/dLLow6.4-8.3MSt. Mary's Medical Center Comment on above:Performed By: #### PT, CMPX, MG, CDP #### [facility] [employer] [address] [place] [address] 52382 Sodium molar jate911 mmol/BDgq020-731EbqmeCommunity Regional Medical CenterComment on above:Performed By: #### PT, CMPX, MG, CDP #### [facility] [employer] [address] [place] [address] 76445 Urea nitrogen mass conc17 mg/dLNormal6-20[facility] Medical CenterComment on above:Performed By: #### PT, CMPX, MG, CDP #### [facility] [employer] [address] [place] [address] 01453 BUN/CRE RatioNOT REPORTEDNormal9-20[facility] Comment on above:Performed By: #### PT, CMPX, MG, CDP #### [address] [address] Staging:NOT REPORTEDNormalCommunity Regional Medical CenterComment on above:Performed By: #### PT, CMPX, MG, CDP #### [address] [address] Lactic Acid,Whole Blon 53-05-9497Nwuice Acid,Whole Bl1.2 mmol/L Normal0.7-2.1MSt. Mary's Medical CenterComment on above:Performed By: #### LACDS, TROPI, PRCAL, MYCM #### [address] [address] Lactic Acid,Whole Bl1.2 mmol/LNormal0.7-2.1MSt. Mary's Medical CenterComment on above:Performed By: #### LACWB #### [address] [address] Magnesiumon 90-75-0367Yictxenzx mass conc2.0 mg/dLNormal1.6-2.6 [facility] CenterComment on above:Performed By: #### LACDS, TROPI, PRCAL, MYCM #### [address] [address] Mycoplasma Ab,IgMon 91-33-8812Aqjhdvoxrw Ab,IgM0.22Normal<0.91Community Regional Medical CenterComment on above:Result Comment: Reference Range: <=0.90 Negative 0.91-1.09 Equivocal >=1.10 PositivePerformed By: #### LACDS, TROPI, PRCAL, MYCM #### [address] [address] PTon 15-56-0740QUX Coag RelTime (PPP)1.0 {INR}NormalCommunity Regional Medical CenterComment on above:Result Comment: Therapeutic Range: Moderate Anticoagulant Intensity: INR = 2.0-3.0 High Anticoagulant Intensity: INR = 2.5-3.5Performed By: #### PT, CMPX, MG, CDP #### [facility] [employer] [address] [place] [address] [phone] Prothrombin time (PT) Coag time (PPP)11.0 sNormal9.0-12.0Community Regional Medical CenterComment on above:Performed By: #### PT, CMPX, MG, CDP #### [facility] [address] [place] [address]67 Troponinon 20-12-4458Plhwpkar I.cardiac mass concNormalMerSonoma Developmental CenterComment on above:Result Comment: Reference Range: <0.03 [...] information for diagnosis.Performed By: #### TROPI #### [address] [phone] Troponin I.cardiac mass concng/mLNormal<0.03Community Regional Medical CenterComment on above:Result Comment: Troponin T results cannot be compared to Troponin-I results.Performed By: #### TROPI #### [place] [address] XR CHEST (2 VW)on 01-96-2616PX CHEST (2 VW)EXAMINATION: TWO VIEWS OF THE [...] Signed by: Noe Mitchell MD 08/16/18 Final resultNormalCommunity Regional Medical CenterLactate, Sepsison 08-15-2018 Lactic Acid,Sep Wbld3.5 mmol/LHigh0.5-1.9[facility] Medical CenterComment on above:Performed By: #### LACDS, TROPI, PRCAL, MYCM #### [facility] [address] [place] [address] [phone] Lactic Acid, SepsisNOT REPORTEDNormal0.5-1.9[facility] Medical CenterComment on above:Performed By: #### LACDS, TROPI, PRCAL, MYCM #### [facility] [address] [place], [place] [id number] Legionella Ag, Uron 79-53-7569Johkdjkgvt Ag, UrSpecimen Description .CLEAN CATCH URINE Special [...] levels of this test. Report Status FINAL 08/15/2018NormTrumbull Regional Medical CenterComment on above:Performed By: #### ULAG #### [facility] [address] [place] [address] [phone] Procalcitoninon 59-51-0092Oqeqkpv mass conc3.39 ng/mLHigh<0.09Community Regional Medical CenterComment on above:Result Comment: Suspected Sepsis: [...] entered into the Change in Procalcitonin Calculator ([email or web address]-[email or web address].Digital Lumens) to determine the patient's Mortality Risk PrognosisPerformed By: #### LACREY, TROPI, PRCAL, MYCM #### [facility] [address] [place] [address] Strep pneum Ag,CSF/Uron 95-78-4693Eoscd pneum Ag,CSF/UrSpecimen Description .CLEAN CATCH URINE Special Requests NOT REPORTED Direct Exam NEGATIVE: Strep pneumoniae antigen not detected Report Status FINAL 08/15/2018[facility] CenterComment on above:Performed By: #### SPAG #### [facility] [employer] [address] [place] [address]695 Troponinon 17-01-3535Avoppcbp I.cardiac mass concng/mLNormal<0.03 [facility] Medical CenterComment on above:Result Comment: Troponin T results cannot be compared to Troponin-I results.Performed By: #### LACDS, TROPI, PRCAL, MYCM #### [facility] [address] [place] [address]309 Troponin I.cardiac mass [facility] Comment on above:Result Comment: Reference Range: [...] By: #### LACDS, TROPI, PRCAL, MYCM #### [facility] [address] [place] [address] Urinalysison 80-37-6584Hixtycogt, UrineNegativeInvalid Interpretation CodeNEG;NEGATIVEMARYMOUNT HOSPITALBlood, UrineModerate AbnormalNEG;NEGATIVEMARYMOUNT HOSPITALInterpretation and review of laboratory resultsAbnormalInvalid Interpretation CodeMARYMOUNT HOSPITALNitrite, UrineNegativeInvalid Interpretation CodeNEG;NEGATIVEMARYMOUNT HOSPITALProtein, UrineNegativeInvalid Interpretation CodeNEG;NEGATIVE mg/dLMARYMOUNT HOSPITALRBCs, Urine1 /HPFInvalid Interpretation Code0 - 5[facility] HOSPITALquamous Epithelial< 1Invalid Interpretation Code0 - 40 /HPFSalem City Hospital, bacteria in sedimentRare Invalid Interpretation CodeNS;RARE /HPFSalem City Hospital, characterHazyInvalid Interpretation CodeSalem City Hospital, colorYellowInvalid Interpretation CodeSalem City Hospital, glucose presenceNegativeInvalid Interpretation CodeNEG;NEGATIVE mg/dLSalem City Hospital, ketones presenceNegativeInvalid Interpretation Code NEG;NEGATIVE mg/dLSalem City Hospital, leukocyte esterase presenceSmallAbnormalNegativeSalem City Hospital, pH6.0 [pH] Invalid Interpretation Code4.5 - 8.0[facility], specific gravity1.014 1Invalid Interpretation Code1.003 - 1.029MARYMOUNT HOSPITALUrobilinogen, Urine< 2.0Invalid Interpretation Code<2 mg/dLMARYMOUNT HOSPITALWBCs, Urine6 /HPFHigh0 - 5MARYMOUNT HOSPITALCBC and Differentialon 13-55-7549Asbswptph1.7 %Invalid Interpretation CodeMARYMOUNT HOSPITALBasophils0.1 K/mcLInvalid Interpretation Code0 - 0.2MARYMOUNT HOSPITALEosinophils0.2 K/mcLInvalid Interpretation Code0 - 0.5 MARYMOUNT HOSPITALErythrocytes (RBC)3.97 M/mcLInvalid Interpretation Code3.7 - 5.0MARYMOUNT HOSPITALHematocrit (HCT)35.7 %Invalid Interpretation Code34.4 - 44.8 %MARYMOUNT HOSPITALHemoglobin (HGB) 12.2 g/dLInvalid Interpretation Code11.6 - 15.4 g/dLMARYMOUNT HOSPITALInterpretation and review of laboratory resultsAbnormalInvalid Interpretation CodeMARYMOUNT HOSPITALLymphocytes2.1 K/mcLInvalid Interpretation Code1.0 - 3.7MARYMOUNT HOSPITALMCH30.6 pgInvalid Interpretation Code27.9 - 33.9 pgMARYMOUNT HOSPITALMCHC34.0 g/dL Invalid Interpretation Code33.1 - 35.1 g/dLMARYMOUNT HOSPITALMCV89.8 fLInvalid Interpretation Code82.6 - 98.9MARYMOUNT HOSPITALMonocytes 0.6 K/mcLInvalid Interpretation Code0.1 - 0.6[facility] Neutrophils6.6 K/mcLInvalid Interpretation Code1.2 - 6.9MARYMOUNT HOSPITALPlatelet mean volume (PMV)8.6 fLInvalid Interpretation Code7.0 - 10.6 MARYMOUNT HOSPITALPlatelets196 K/mcLInvalid Interpretation Fsgc468 - 402OHWHITE HOSPITALRDW-CA15.0 %High10 - 14.4 %GO[facility] SAMARITAN HOSPITALegmented Neut69.6 %Invalid Interpretation CodeMARY [place] [address] suppressor/100 cells1.8 10*3/uLInvalid Interpretation CodeMARY [place]IL[place] [address] suppressor/100 cells21.8 10*3/uLInvalid Interpretation Code [place] [address] suppressor/100 cells6.1 10*3/uLInvalid Interpretation CodeMARYMOUNT HOSPITALWBC (Leukocytes)9.5 K/mcLInvalid Interpretation Code3.4 - 10.6MARYMOUNT HOSPITALComprehensive Metabolic Panelon 08-81-1180Nepdgda aminotransferase (ALT)18 U/LInvalid Interpretation Code14 - 65 U/[facility]OSPITALAlbumin3.1 g/dLLow3.2 - 5.2 g/dLMARYMOUNT HOSPITALAlkaline phosphatase (ALP)78 U/LInvalid Interpretation Code40 - 140 U/[facility] HOSPITALAspartate aminotransferase (AST)7 U/LInvalid Interpretation Code0 - 45 U/[facility]OSPITALCalcium8.6 mg/dLInvalid Interpretation Code8.4 - 10.2 mg/dL M[facility]MOUNT HOSPITALChloride106 mmol/LInvalid Interpretation Code98 - 108 mmol/[facility]OSPITALCO227 mmol/LInvalid Interpretation Code21 - 32 mmol/[facility]OSPITALCreatinine1.13 mg/dLHigh0.4 - 1.1 mg/dL MARYMOUNT HOSPITALeGFR (black)mL/min/{1.73_m2}Invalid Interpretation Codeml/min/1.73sq.[facility] Mercy HospitaleGFR (non-black)54 mL/min/{1.73_m2}Low>60MARYM[facility] HOSPITALGlucose113 mg/xCRjox38 - 99 mg/dLMARYMOUNT HOSPITALInterpretation and review of laboratory resultsAbnormalInvalid Interpretation CodeMARYMOUNT HOSPITALPotassium 3.7 mmol/LInvalid Interpretation Code3.5 - 5.1 mmol/[facility]OS[facility]ITALProtein6.8 g/dLInvalid Interpretation Code6 - 8 g/dLGOOD SAMARITAN HOSPITALodium140 mmol/LInvalid Interpretation Dlat782 - 145 mmol/[facility]OSPITALUrea fntawwdh05 mg/dLInvalid Interpretation Code8 - 25 mg/dL MARYMOUNT HOSPITALUrine, bilirubin presence0.4 mg/dLInvalid Interpretation Code0.3 - 1.2 mg/dLMARYMOUNT HOSPITALLipaseon 66-48-4310Oapqnu921 U/LInvalid Interpretation Code73 - 393 U/[facility] Vital Signs Date TimeVital SignValuePerforming PbvqxweykVenllmvd52-24-9431 11:47-0400Body stdhpy069.5 cmJessica TelekenexNEataly Net Work Phone: [facility] HospitalBvfpjjqpnf39-22-5263 11:47-0400Body mass index (BMI) [Ratio]38.41 kg/b1Qgpdqwy TelekenexNEataly Net Work Phone: [facility] HospitalFejovllfex07-28-0029 11:47-0400Body ygvcuq22.25 kgJessica TelekenexN-RESEARCH NEUROPSYCHOLOGIST Work Phone: [facility] HospitalTtabrpktrp95-45-5003 11:47-0400Diastolic blood scrbnheu08 mm[Hg]Jennie Van PATENT LITIGATION ASSOCIATE-RESEARCH NEUROPSYCHOLOGIST Work Phone: [facility] HospitalVmuupedszi72-65-5434 11:47-0400Respiratory rate18 /minJecarlos Van PATENT LITIGATION ASSOCIATE-RESEARCH NEUROPSYCHOLOGIST Work Phone: [facility] HospitalBzbmsotyka39-29-7012 11:47-1574UfK4% (BldA) [Mass fraction]98 %Jennie Vermont State HospitalN-RESEARCH NEUROPSYCHOLOGIST Work Phone: [facility] HospitalNiiludnypf45-79-2535 11:47-0400Systolic blood zwsrcerr048 mm[Hg]Jennie [facility] State HospitalN-RESEARCH NEUROPSYCHOLOGIST Work Phone: [facility] HospitalQfshbrjpry15-86-2360 12:32-0400Body lcdojy401.5 cmChristophmichael Sánchez DPM Work Phone: [facility] HospitalStxsalzurl27-15-8794 12:32-0400Body mass index (BMI) [Ratio]38.41 kg/l6Tfzazlpekjk Bohach DPM Work Phone: [facility] HospitalRommnxpgef30-30-4663 12:32-0400Body wpovss66.25 kgChristopher Bohach DPM Work Phone: [facility] HospitalCtgxmxotvw46-36-0684 12:32-0400Diastolic blood joklifqq53 mm[Hg]Christdipak Sánchez DPM Work Phone: [facility] HospitalVvazwvdcyc03-03-7321 12:32-0400Heart vies350 /min Christophmichael Sánchez DPM Work Phone: [place] [address]Lxwhuxmmrx27-41-4286 12:32-0400Systolic blood luhakvlh278 mm[Hg]Christophmichael Sánchez DPM Work Phone: [place] [address]Hvfphljfol00-07-4858 16:21-0400Body mgojvp862.5 cmChristopher Boboach DPM Work Phone: [facility] HospitalVtqhctwrrj66-38-2165 16:21-0400Body mass index (BMI) [Ratio]38.41 kg/w6Qsvddbiixxx Bohach DPM Work Phone: [facility] HospitalJvlhymblyf92-83-1239 16:21-0400Body ptutoa05.25 kgChristop Bohach DPM Work Phone: [facility] HospitalQrerdcezck56-66-4680 16:21-0400Diastolic blood lgowqana36 mm[Hg]Robbin Sánchez DPM Work Phone: [facility] HospitalHwykprqtoq33-96-6236 16:21-0400Heart rate89 /min Christdipak Sánchez DPM Work Phone: [facility] HospitalTfpoqvoxqf10-91-0447 16:21-0400Systolic blood gkowxfrs043 mm[Hg]Robbin Sánchez DPM Work Phone: [facility] HospitalPkjfudndsq32-16-1108 23:15-0400Diastolic blood ulvlbrfc88 mm[Hg]Severo Case MD Work Phone: [facility] Vbdsyl88-47-9525 23:15-0400Heart rate74 /minSevero Case MD Work Phone: [facility] Uxammy08-80-2231 23:15-0400 Respiratory rate16 /minSevero Case MD Work Phone: [facility] CenterLover.ly [facility] Fzlwnz13-94-8726 23:15-8562XtD5% (BldA) [Mass fraction]97 %Severo Case MD Work Phone: [phone] Dcljju99-19-9758 23:15-0400Systolic blood ftnvhufc995 mm[Hg]Severo Case MD Work Phone: [facility] Mztpof78-79-3059 21:24-0400Body hrpmoe346.4 cmSevero Case MD Work Phone: [facility] Jeaxtq92-17-6112 21:24-0400Body mass index (BMI) [Ratio]41.99 kg/j7JmaygySevero Case MD Work Phone: [facility]07-01-2025 21:24-0400Body yzsanz99.52 kgSevero Case MD Work Phone: [facility]07-01-2025 21:15-0400Body vplvhngajva01 [degF]Severo Case MD Work Phone: [facility]06-10-2025 12:02-0400Body bunmbu863.5 cmLynn Block MD Work Phone: [phone])797-[address] [place], [place] [address]Hsrvbuboyp96-40-6759 12:02-0400Body mass index (BMI) [Ratio]38.41 kg/m2Lynn Block MD Work Phone: [facility] HospitalKfcapvgffd00-91-3377 12:02-0400Body ezzgvj86.25 kgLynn Block MD Work Phone: [phone])687-[address] [place], [place] [address]Slramogxyw63-87-9820 13:00-0500Body .5 cmLynn Block MD Work Phone: [phone])601-[address] [place], [place] [address]Nnalpqdlbz56-87-7016 13:00-0500Body mass index (BMI) [Ratio]38.41 kg/m2Lynn Block MD Work Phone: [facility] HospitalBduqicghfe47-05-4314 13:00-0500Body uzigwa90.25 kgLynn Block MD Work Phone: [phone] [place], [place] [address]Zcfqjnvrib81-68-0236 11:31-0500Body hpzgki504.5 cmFozia Meng ETL APPLICATION DEVELOPER Work Phone: [phone] [place], [place] [address]Rcizkvtxdg24-74-1630 11:31-0500Body mass index (BMI) [Ratio]37.9 kg/g7Ytkbgpzalli Meng ETL APPLICATION DEVELOPER Work Phone: [phone])282-[address] [place], [place] [address]Mukjkmxwvf99-08-9663 11:31-0500Body .98 kgFealli Knutsongel ETL APPLICATION DEVELOPER Work Phone: [phone])294-[address] [place], [place] [address]Hqpztvbhds19-86-1045 11:31-0500Diastolic blood cuzafjii10 mm[Hg]Fozia Meng ETL APPLICATION DEVELOPER Work Phone: [facility] HospitalFgipipigne73-91-7164 11:31-0500Systolic blood ptkbuxkp529 mm[Hg]Fozia Meng ETL APPLICATION DEVELOPER Work Phone: [facility] HospitalQdjdcqnkpa50-37-2844 09:42-0500Body lovgkg725.5 Jimmy Adair MD Work Phone: [phone]) [phone]uftqq90-11-8019 09:42-0500Body mass index (BMI) [Ratio]38.23 kg/m2Dimas Adair MD Work Phone: [phone]) [phone]pdkoj20-09-3617 09:42-0500Body qbweihmtqvn79.29 [degF]Dimas Adair MD Work Phone: [phone]) [phone]gfzmx53-49-5810 09:42-0500Body fuibae46.8 kgDimas Adair MD Work Phone: [phone]gkaoy78-35-3048 11:30-0500Body .5 cm Fozia Meng ETL APPLICATION DEVELOPER Work Phone: [facility] HospitalLecwifwtip98-26-5772 11:30-0500Body mass index (BMI) [Ratio]39.91 kg/j5Hcqrgraalli Meng ETL APPLICATION DEVELOPER Work Phone: [facility] HospitalUobmezaepd43-54-1163 11:30-0500Body legssx58.97 kgFealli Meng ETL APPLICATION DEVELOPER Work Phone: [facility] HospitalXvcijwlnev21-66-6298 11:30-0500Diastolic blood lycisyfc62 mm[Hg]Fozia Meng ETL APPLICATION DEVELOPER Work Phone: [facility] HospitalLpdyomjtov22-66-1120 11:30-0500Systolic blood uupaklnp477 mm[Hg]Fozia Meng ETL APPLICATION DEVELOPER Work Phone: [facility] HospitalOywjdrnmkt59-32-8536 10:09-0400Body bgjesd562.5 cmTrace Casas MD Work Phone: [facility] HospitalQksvjarjys14-71-7778 10:09-0400Body mass index (BMI) [Ratio]38.96 kg/f3MipqugrTrace Casas MD Work Phone: [facility] HospitalWtszbxtffe09-02-0036 10:09-0400Body nppuxs13.62 kgTrace Casas MD Work Phone: [facility] HospitalPcbmnsirox00-22-5312 10:09-0400Diastolic blood dvegfkzu45 mm[Hg]Trace Casas MD Work Phone: [facility] HospitalEvicqyhtdg50-59-9623 10:09-0400Systolic blood fzzuthla466 mm[Hg]Trace Casas MD Work Phone: [facility] HospitalYeoknacwuv24-64-5712 14:20-0400Body lvpsnu797.5 cmNicole Ginger DO Work Phone: [facility] HospitalChhbhwfugx79-93-3733 14:20-0400Body mass index (BMI) [Ratio]38.41 kg/a5Ohbqwa Ginger DO Work Phone: [facility] HospitalYfpcnwrtjy97-01-2575 14:20-0400Body icyoxv58.25 kgNicole Ginger DO Work Phone: [facility] HospitalJzuwftwnqz38-42-2719 14:20-0400Diastolic blood tsmefras20 mm[Hg]Cheryl Ginger DO Work Phone: [facility] HospitalFtndgnihnh19-47-2604 14:20-0400Heart rate83 /min Cheryl Ginger DO Work Phone: [facility] HospitalYwoymwcdji04-98-0218 14:20-1886KeY1% (BldA) [Mass fraction]97 %Cheryl Ginger DO Work Phone: [facility] HospitalFkpzertkud13-87-4202 14:20-0400Systolic blood gfndubku118 mm[Hg]Cheryl Ginger DO Work Phone: [facility] HospitalBdafzyxdha59-63-0379 14:44-0400Body temperature 98.49 [degF]MASSIMO Shook DP Work Phone: [phone]wvpxj55-42-5781 14:44-0400Diastolic blood ayyyybjk97 mm[Hg]MASSIMO Shook DPM Work Phone: [phone]) [phone]ncrrp09-52-0865 14:44-0400Heart rate94 /minCJ Boone DPM Work Phone: [phone]lvfkd04-64-7796 14:44-0400Systolic blood pressure 139 mm[Hg]MASSIMO Shook DPM Work Phone: [phone]) [phone]nuyzu94-46-3766 09:36-0400Body shcjor723.5 cmMwhz Education Work Phone: b[facility]09-28-2022 09:36-0400Body mass index (BMI) [Ratio]38.67 kg/m2Mwhz Education Work Phone: b[facility]09-28-2022 09:36-0400Body nzdoey45.89 kgMwhz Education Work Phone: b[facility]12-13-2020 20:53-0500BMI (Body Mass Index)39.32 kg/y8RxeldyrdesrCalais Regional Hospital, QA77-27-0364 20:53-0500Body Nmincjbxlxc27.5 [degF][place], [place] 09-16-2020 20:53-0500Body bxapll84.52 kgCalais [facility], [place] 09-16-2020 20:53-0500BP Krekylryi938 mm[Hg][facility] 09-16-2020 20:53-0500BP Eeuivqxd542 mm[Hg][facility] 09-16-2020 20:53-1700Gjivmb392.5 [facility] [place] 09-16-2020 20:53-0500Pulse (Heart Rate)99 /minCalais Regional Hospital, TH47-90-4570 20:53-0500Pulse Ppofjdhs58 %[facility] [place] 09-16-2020 20:53-0500Respiratory Rate18 /minChristopher [facility]- [place], [place] Encounters Encounter DateEncounter TypeCare ProviderFacilityStart: 07-21-2025 End: 45-88-4755qmxvipaewwBCBHVAvita Health System Bucyrus Hospitaltart: 07-21-2025 End: 11-73-8853Xcdyomcyuy hospital visit by physicianJames J. Peters Va Medical Centeruzair Laboratory Schedule MWHZ LaboratoryComment on above:ArrivedStart: 06-12-2025 End: 02-64-1475mfzhwwnazeWUXOFTCTIF [facility] HospitalStart: 06-12-2025 End: 57-00-4936Ftaphqxwfu hospital visit by physicianJames J. Peters Va Medical Centeruzair Laboratory Schedule MWHZ LaboratoryComment on above:ArrivedStart: 05-24-2025 End: 43-34-2459HzbfagRevistronicNEataly Net Work Phone: noms NEUROLOGYStart: 05-24-2025 End: 84-12-0753Qmxisl [employer] Work Phone: noms NEUROLOGYStart: 05-24-2025 End: 55-74-7668ioygbjsqsjPTHONVV SPRINGERNot AvailableStart: 05-24-2025 End: 86-99-9841Aqvosz outpatient visit 25 minutesJeAuthentix Work Phone: noms [place] NeurologyComment on above:BUCK (obstructive sleep apnea) (Primary Dx); Cervical paraspinal muscle spasm; Cervical radiculopathyStart: 05-23-2025 End: 94-13-9272Sievjmauc encounterLynn Block MD Work Phone: noms [facility] 111Start: 05-15-2025 End: 42-90-8621gyibgtxchmEJVEJLicking Memorial Hospitaltart: 05-15-2025 End: 20-90-4890Itwutdwulm hospital visit by physicianJames J. Peters Va Medical Centeruzair Laboratory Schedule MWHZ LaboratoryComment on above:ArrivedStart: 04-20-2025 End: 40-15-0287Fvaqaf flowsheetRobbin Sánchez DPM Work Phone: noms [employer] PODIATRYStart: 04-20-2025 End: 88-83-9391Bfqucl flowsheetChiain Sánchez DPDieudonne Work Phone: noms [employer] PODIATRYStart: 04-20-2025 End: 35-83-3963Upgjzd outpatient visit 25 minutesChiain Sánchez DPM Work [...] of right foot, initial encounterStart: 04-20-2025 End: 96-79-6920wvanzphkhtPYGKGGRDQAG J BOHACHNot AvailableStart: 04-14-2025 End: 00-10-7618ozvbpxmtvfJBDFN BACKMercy Willard HospitalStart: 04-14-2025 End: 34-04-6935Ommtvfstnk hospital visit by Paola Adam MD Work Phone: mWHF LaboratoryComment on above:Hyperglycemia; Mixed hyperlipidemia; Chronic renal impairment, stage 3a (HCC)Start: 04-12-2025 End: 91-41-8138Rcmxggwzc Result EncounterChiain Sánchez DPDieudonne Work Phone: noms External Department UnsolicitedStart: 04-12-2025 End: 69-44-2670Aebnqkjiu Result EncounterChristopher Adam Sánchez DPM Work Phone: noms External Department UnsolicitedStart: 04-11-2025 End: 65-45-0608Vkwsmaaon Result EncounterChiain Sánchez DPM Work Phone: noms External Department UnsolicitedStart: 04-11-2025 End: 11-24-7227Vrhzenecl Result EncounterChiain Sánchez DPM Work Phone: noms External Department UnsolicitedStart: 04-11-2025 End: 57-95-4638ysvarpgqhzJHVECSUUNVM J BOHACHUniversity Hospitals [facility] HospitalStart: 04-11-2025 End: 42-79-8339Yvfulqqqon hospital visit by physicianRobbin Sánchez DPM Work Phone: [facility] MRIComment on above:Pain in right footStart: 04-06-2025 End: 32-74-8893Vuejru outpatient visit 25 minutesChiain Sánchez DPM Work Phone: noms [employer] PODIATRYComment on above:Right foot pain (Primary Dx); Skin ulcer of toe of right foot with fat layer exposed (HCC); Infection of toe; Idiopathic progressive polyneuropathy; Generalized edemaStart: 04-06-2025 End: 95-29-1815geqrmdhgyvCXEVVOTQJBP J BOHACHNot AvailableStart: 04-06-2025 End: 45-57-6245Bucisz flowsheetRobbin Sánchez DPDieudonne Work Phone: [facility] PODIATRYStart: 04-06-2025 End: [id number] flowsTeresa Sánchez DPDieudonne Work Phone: [facility] PODIATRYStart: 04-04-2025 End: 24-56-8255Oogqoafhg department patient visitSevero Case MD Work Phone: [facility] Emergency DepartmentComment on above: Pressure injury of deep tissue of toe, unspecified laterality (Primary Dx)Start: 03-14-2025 End: 28-89-0368Wbvjqs Magen Block MD Work Phone: noms NEUROLOGYStart: 03-14-2025 End: 88-02-9860Nkqgrc Magen Block MD Work Phone: noms NEUROLOGYStart: 03-14-2025 End: 32-08-9438Sblixf outpatient visit 25 minutesLynn Block MD Work Phone: noms SWS NEUR BComment on above:BUCK (obstructive sleep apnea) (Primary Dx); Claustrophobia ; HypersomniaStart: 03-14-2025 End: 48-46-9708wumkjeyirkGYGO D BEJNot AvailableStart: 02-15-2025 End: 19-37-6913mkqwptjczbNVFDL BACKUniversity Hospitals [facility] HospitalStart: 02-15-2025 End: 20-18-1488Bndqdlsttw hospital visit by Paola Adam MD Work Phone: [facility] MammographyComment on above: Encounter for screening mammogram for malignant neoplasm of breastStart: 30-15-1312cmqmhsrphlUmaehsnr:FTMCStart: 02-13-2025 End: 96-49-7371Mwssldmichael Casas MD Work Phone: noms NEUROLOGYStart: 02-13-2025 End: 19-93-4553Ljezakmichael Casas MD Work Phone: noms NEUROLOGYStart: 02-13-2025 End: 41-74-6841qehqsolmlkDWIUDLM W BAUERNot AvailableStart: 02-13-2025 End: 36-78-9387Zbhrvz outpatient visit 25 minutesTrace Casas MD Work Phone: noms SWS NEURComment on above:Charcot's joint, left ankle and foot (Primary Dx); Gait instability; Idiopathic progressive polyneuropathy; Intractable 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 (CMS/HCC); Restless legs; Carpal tunnel syndrome, bilateral; BUCK (obstructive sleep apnea)Start: 12-06-2024 End: 37-73-7407Xuwcmk Magen Block MD Work Phone: noms BM NEUROLOGYStart: 12-06-2024 End: 00-28-4336Rwehny Magen Block MD Work Phone: noms NEUROLOGYStart: 12-06-2024 End: 67-91-5475ygovwszfqeXMAV D BEJNot AvailableStart: 12-06-2024 End: 65-31-8295Knjxig outpatient new 60 minutesLynn Block MD Work Phone: noms SWS NEUR BComment on above:BUCK (obstructive sleep apnea) (Primary Dx); BUCK on CPAP; Claustrophobia (CMS/HCC)Start: 11-14-2024 End: 73-38-6244Ffqeqs flowsheetFelicia Jamila Meng ETL APPLICATION DEVELOPER Work Phone: noms NEUROLOGYStart: 11-14-2024 End: 15-66-7395Tvaykr flowsheetFelicia C Windnagel ETL APPLICATION DEVELOPER Work Phone: noms NEUROLOGYStart: 11-14-2024 End: 29-95-4136Vrawxz outpatient visit 25 minutesFelicia Jamila Meng ETL APPLICATION DEVELOPER Work Phone: noms SWS NEURComment on above:BUCK on CPAP (Primary Dx); Idiopathic progressive polyneuropathy; Restless legs; Intractable 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 (CMS/HCC) Start: 11-14-2024 End: 37-87-9543kztrgjzwxgBERQRLV C WINDPIERCEGELNot AvailableStart: 11-14-2024 End: 89-72-1615knwjceminaPOMJC [facility] for Rehabilitationtart: 11-14-2024 End: 27-64-7546Wezjefnqff hospital visit by physicianFelipe Adam MD Work Phone: mZ LaboratoryComment on above:Pre-diabetes; Mixed hyperlipidemiaStart: 11-02-2024 End: 11-44-8375Ketqpiyoi encounterJanel Allen ETL APPLICATION DEVELOPER Work Phone: noms [facility] NEURO 210Start: 10-11-2024 End: 80-02-4414Bigben outpatient new 45 minutesFelipe Adam MD Work Phone: [facility] Ear, Nose and Throat PhysiciansComment on above:Thyroid nodule (Primary Dx); Lipoma of neckStart: 10-11-2024 End: 69-47-3534fjpetndmxbACXRF BACKOhio Health AmbulatoryStart: 10-05-2024 End: 86-44-1247McfpzzGlmecmo W Bauer MD Work Phone: noms SWS NEURComment on above:Idiopathic progressive polyneuropathy; Non-seasonal allergic rhinitis due to pollenStart: 09-14-2024 End: 01-89-7166Eactnp flowsheetFelicia C Windnagel ETL APPLICATION DEVELOPER Work Phone: noms BM NEUROLOGYStart: 09-14-2024 End: 20-24-6769Ligdlf flowsheetFelicia C Windnagel ETL APPLICATION DEVELOPER Work Phone: noms BM NEUROLOGYStart: 09-14-2024 End: 43-14-0114Hgxsihaqg encounterFelicia C Windnagel ETL APPLICATION DEVELOPER Work Phone: noms [facility] NEURO 210Start: 09-14-2024 End: 25-23-9091Qnyfzn outpatient visit 25 minutesFelicia C Windnagel ETL APPLICATION DEVELOPER Work Phone: noms SWS NEURComment on above:BUCK on CPAP (Primary Dx); Idiopathic progressive polyneuropathy; Intractable 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 (CMS/HCC); Restless legs; Bilateral carpal tunnel syndromeStart: 09-14-2024 End: 29-41-3126upnecqwcxvYSJWUPR C WINDNAGELNot AvailableStart: 09-09-2024 End: 76-10-4905Kazgindzsz OrdersFelicia [facility] ENT EnterpriselandComment on above:Thyroid nodule (Primary Dx)Start: 09-06-2024 End: 02-15-9738brbgepjcmwZSGUN BACKMercy Willard HospitalStart: 09-06-2024 End: 23-56-8923Imwsokrczz hospital visit by Paola Adam MD Work Phone: [facility] UltrasoundComment on above: Thyroid noduleStart: 08-11-2024 End: 46-64-3763BwsuqnEwqiplr W Bauer MD Work Phone: noms SWS NEURComment on above:Idiopathic progressive polyneuropathy; Non-seasonal allergic rhinitis due to pollenStart: 06-10-2024 End: 10-07-4477Rtpujy flowsFransisco Casas MD Work Phone: noms BM NEUROLOGYStart: 06-10-2024 End: 87-86-4473Dqzvtm Therese Casas MD Work Phone: noms BM NEUROLOGYStart: 06-10-2024 End: 43-47-3616Lsjqti outpatient visit 25 minutesBreclaudia Casas MD Work Phone: noms SWS NEURComment on above:Idiopathic progressive polyneuropathy (Primary Dx); Bilateral carpal tunnel syndrome; Restless legs; Intractable 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 (CMS/HCC) Start: 06-10-2024 End: 75-89-4054gbmeslsslqJFCPLJT W BAUERNot AvailableStart: 05-10-2024 End: 85-01-9482Svcyhxithb hospital visit by Paola Adam MD Work Phone: mWHZ LaboratoryStart: 05-10-2024 End: 09-62-8452Syyuku outpatient visit 40 minutesNicole Ginger DO Work Phone: noms WNZ NEUROComment on above:BUCK (obstructive sleep apnea); Hypersomnia; Snoring; Class 2 obesity due to excess calories with body mass index (BMI) of 38.0 to 38.9 in adult, unspecified whether serious comorbidity presentStart: 02-15-2024 End: 96-37-8986dzpwwbtltkRjkkm [facility] HospitalFacility:[facility] CenterStart: 02-15-2024 End: 24-17-2521vzzwvxxrpkDYX [facility] Work Phone: [facility] Work Phone: Start: 02-15-2024 End: 05-74-1095Xmyaxoza ReferredDPM [facility] Work Phone: [facility]-LAB Path Spec [facility] HospStart: 06-15-2023 End: 73-30-5949Ezuruwyjal hospital visit by Paola Adam MD Work Phone: mwhz LaboratoryComment on above:Mixed hyperlipidemia Start: 05-79-4016aqmnynlndrMCTZZOhio State East Hospital PhysiciansStart: 03-03-2023 End: 66-36-0721Nhxqol outpatient new 45 minutesCJ J Boone DPM Work Phone: [facility] Physicians GroupComment on above:Charcot arthropathy of midfoot (Primary Dx); Gastrocnemius equinus, unspecified laterality; Foot pain, leftStart: 02-11-2023 End: 07-56-7620xkaxcyhqbaWCNJJ D HIGHLANDERFacility:S4Ldslz: 02-05-2023 End: 79-14-9734Blyzhcbrik hospital visit by Paola Adam MD Work Phone: mwhz LaboratoryComment on above:Pelvic pressure in femaleStart: 02-04-2023 End: 43-74-2276epbyrcgeazOMXOL D HIGHLANDERFacility:I4Bwyiy: 01-28-2023 End: 31-33-4678oeugopvttpABPAT D HIGHLANDERFacility:F7Mdbmh: 01-06-2023 End: 38-56-7848Hgnrvltjx department patient visitGARFormerly Oakwood Hospitaltart: 07-09-2022 End: 99-56-7989Sxrzoetxpu hospital visit by JOE Rod RD Work Phone: mWHD Diet and NutritionComment on above:ArrivedStart: 07-02-2022 End: 70-00-1292Ucxvpwujtr hospital visit by Efren Diabetes Education Work Phone: mwhZ Diabetic EducationStart: 06-25-2022 End: 59-85-0499Kxybdqilvx hospital visit by physicianTennille Additional Xray At [facility] RadiologyComment on above:Foreign body (FB) in soft tissue Start: 06-25-2022 End: 37-08-4201Jernwwofop hospital visit by physicianrobby Mri Scanner [facility] MRIComment on above:Pain of foot, unspecified laterality; Closed nondisplaced fracture of second metatarsal bone of left foot, initial encounter; Closed nondisplaced fracture of lateral cuneiform of left foot, initial encounterStart: 05-27-2022 End: 32-70-2199Bzqskcjrux hospital visit by physicianTennille Ultrasound Room [facility] UltrasoundComment on above:Neck massStart: 04-28-2022 End: 90-90-3088fkzucjjtojKTDERF S GOHETALMain Campus Medical Centertart: 04-28-2022 End: 15-56-1240Vzuzmeajmd hospital visit by Paola Adam MD Work Phone: [facility] LABORATORYComment on above:Acute cystitis with hematuriaStart: 04-12-2022 End: 99-94-3672Gekxtgpswl hospital visit by Paola Adam MD Work Phone: mWHZ LaboratoryComment on above:Fatigue, unspecified type; Encounter for screening for HIV; Mixed hyperlipidemia; Hyperglycemia; Chronic renal impairment, stage 3b (HCC)Start: 02-05-2022 End: 50-41-2344Opyqczzqsq hospital visit by Kaylah CORRALESWHZ Physical TherapyStart: 02-04-2022 End: 55-94-9663Drhkwvz encounter procedureMary [facility]an Hospital Ctr-MRI Strub RdStart: 02-03-2022 End: 88-77-3833Ldvrfaakix hospital visit by Bradley Johnson Physical TherapyStart: 01-29-2022 End: 27-70-9359Scakacdlui hospital visit by Ivan Rangel PTAMWHZ Physical TherapyComment on above:ArrivedStart: 01-27-2022 End: 10-53-8605Rgrxpohevi hospital visit by Kaylah Donohue PTMWHZ Physical TherapyComment on above:ArrivedStart: 01-24-2022 End: 06-16-4537Whnxatiaqb hospital visit by Jojo Mccormack PTMWHZ Physical TherapyComment on above:ArrivedStart: 01-22-2022 End: 57-98-3272Labltbsrwh hospital visit by Ivan MARCUSWHUzair Physical TherapyStart: 01-17-2022 End: 37-33-3427Rkejnuintf hospital visit by Ivan Rangel PTAMWHUzair Physical TherapyComment on above:ArrivedStart: 01-13-2022 End: 10-00-2430Ppjcfevqnw hospital visit by Kaylah Donohue PTMWHZ Physical TherapyStart: 01-03-2022 End: 62-22-9862Vnujjaganw hospital visit by Ivan Rangel PTAMWHZ Physical TherapyComment on above:ArrivedStart: 12-31-2021 End: 07-88-3380Ghnfqyudxx hospital visit by Renetta Herman OTMWHUzair Occupational TherapyComment on above:ArrivedStart: 12-30-2021 End: 94-17-7131Epntkbysai hospital visit by Renetta LEONARDO Occupational TherapyComment on above:ArrivedStart: 12-23-2021 End: 93-12-6003Vlorrkuvvd hospital visit by Renetta Herman OTMWHUzair Occupational TherapyComment on above:ArrivedStart: 11-29-2021 End: 63-90-3193gbpgbetsisIZCRZElbert Memorial Hospitaltart: 08-01-2021 End: 92-90-4435Mwqsadaohx hospital visit by Paola Adam MD Work Phone: mwhz LaboratoryComment on above:Frequent UTI; Urinary urgency; Urinary frequencyStart: 07-11-2021 End: 15-92-7146Rtbbwqyalx hospital visit by Paola Adam MD Work Phone: mZ LaboratoryComment on above:Frequent UTI; Urinary urgency; Urinary frequencyStart: 06-11-2021 End: 28-17-0573Jiidbuvyor hospital visit by Paola Adam MD Work Phone: mwhz LaboratoryComment on above:Acute cystitis with hematuria; Recurrent UTIStart: 05-27-2021 End: 66-91-1519Rjjayprmpc hospital visit by Paola Adam MD Work Phone: mwhz LaboratoryComment on above:Difficult or painful urinationStart: 05-20-2021 End: 82-08-7417Ucsjxnuopt hospital visit by Paola Adam MD Work Phone: mWHZ LaboratoryStart: 04-13-2021 End: 23-15-5806Tcgakunocd hospital visit by Paola Adam MD Work Phone: mZ LaboratoryComment on above:Acute cystitis with hematuriaStart: 02-13-2021 End: 67-68-6344Ymwprwzijz hospital [facility] Covid[facility] Pat Screening ScheduleMWHZ PRE ADMITComment on above:Suspected COVID-19 virus infectionStart: 01-21-2021 End: 93-03-7806Drsnsehpbg hospital visit by physicianJames [facility]. [facility] Covheather Pat Screening ScheduleMWHZ PRE ADMITComment on above:Viral illnessStart: 11-15-2020 End: 62-76-1331Yjyghcknkw hospital visit by physicianJames [facility]. [facility] Tona Pat Screening ScheduleMWHZ PRE ADMITComment on above:ArrivedStart: 09-16-2020 End: 53-90-4685Ayrxfuksr department patient visitChclovis baptist hospitalher Sales Toribio Work Phone: [facility] EDComment on above:Acute thoracic back pain, unspecified back pain laterality (Primary Dx)Start: 08-24-2020 End: 62-80-0203Lbmwnjkjrs hospital visit by physicianTurning Point Mature Adult Care Unitrubens AdamELIZABETHTOWN COMMUNITY HOSPITALUzair Laboratory Comment on above:Epidural abscessStart: 08-08-2020 End: 36-62-5917Ccxdqqedar hospital visit by physicianTurning Point Mature Adult Care Unitrubens BackELIZABETHTOWN COMMUNITY HOSPITALUzair Laboratory Comment on above:SOB (shortness of breath)Start: 07-24-2020 End: 38-15-3168Cpgugccpua hospital visit by physicianBilly BackELIZABETHTOWN COMMUNITY HOSPITALUzair Laboratory Comment on above:Epidural abscessStart: 06-07-2020 End: 80-99-4127Xqsendkmlo hospital visit by physicianTurning Point Mature Adult Care Unitrubens BackELIZABETHTOWN COMMUNITY HOSPITALUzair Laboratory Start: 05-25-2020 End: 42-91-1546Liimgpvyhh hospital visit by physicianTurning Point Mature Adult Care Unitrubens BackELIZABETHTOWN COMMUNITY HOSPITALUzair Laboratory Comment on above:Vitamin D deficiency; Mixed hyperlipidemia; HyperglycemiaStart: 12-14-2019 End: 69-27-2920Aebqgxxarj hospital visit by Paola Pappas Laboratory Comment on above:MRSA (methicillin resistant Staphylococcus aureus) septicemia (HCC)Start: 09-24-2019 End: 44-87-2461Fcrbueadrz hospital visit by Paola Adam MD Work Phone: mWHZ LaboratoryStart: 09-12-2019 End: 12-00-2993Ebqcnoawzz hospital visit by Paola Adam MD Work Phone: mWHZ SLEEP LABStart: 08-29-2019 End: 56-04-7430Vsminhewhg hospital visit by E[facility] Schedule [facility] SLEEP LABComment on above:ArrivedStart: 07-28-2019 End: 60-97-5503Uqehkcejpk hospital visit by Kong Campos X[facility] At [facility] RadiologyComment on above:MRSA (methicillin resistant Staphylococcus aureus) septicemia (HCC)Start: 06-17-2019 End: 72-68-1641Ezokvzooqu hospital visit by Paola Pappas Laboratory Comment on above:MRSA (methicillin resistant Staphylococcus aureus) infection Start: 02-03-2019 End: 34-00-1090Pxwlxfh [facility]Day[facility] Start: 02-03-2019 End: 06-58-7273Jhfohqnkwt hospital visit by Nilesh Casas Work Phone: [facility] MRIComment on above: Brachial neuritis; Peripheral nerve disorder; Spasm of muscleStart: 11-10-2018 End: 31-59-1852Dfszzbc encounter procedureAndrey EarlyFacility:Jama Start: 10-18-2018 End: 24-12-5431Vuzmxxd encounter procedureAndrey Early Work Phone: [facility] HospitalStart: 16-95-5968Rmvgelj encounter procedureLuchasity NunnguiFacility:Brianselect medical specialty hospital - youngstownStart: 10-03-2018 End: 29-26-4552Fcdqvel encounter procedureFelpie [facility] Hospitaltart: 09-20-2018 End: 32-96-0379Tvntpat encounter procedureLuis E JaureguiFacility:[facility] HospitalStart: 69-79-9722Fwbhiua encounter procedureFacility:[id number]: 24-07-4832Vefivvx encounter procedureLUIS Tae Horner [facility] HospitalStart: 09-06-2018 End: 80-87-4150Aafqhqn encounter procedureHistorical ProviderFranki [facility] Start: 08-31-2018 End: 04-64-0095Omqaogw encounter procedureHistorical ProviderSpalding Rehabilitation Hospitalluiz [facility] REG Start: 08-27-2018 End: 53-89-8723Lfyuhry encounter procedureLuis Tae PembertoniFacility:[facility] HospitalStart: 76-67-7530Vzucvfm encounter procedureFacility:[id number]: 08-15-2018 End: 73-83-3912Lvcwghalii and management of inpatientWASEUniversity Hospitals Health Systemtart: 04-02-2018 End: 74-01-0147Snpdkua encounter procedureJosophie KvngFacility:[place]Start: 59-05-7781Zqpuxps encounter procedureMelmalcom Jose ManuelFacility:[place]toStart: 02-04-2018 End: 30-13-8831AajvcybndwGwbiib D GoldnerSharlem valley state hospital HospitalStart: 62-13-8993Msoptzw encounter procedureTERESBrock [facility] HOSPITALJOCYInspira Medical Center Elmertart: 11-17-2017 End: 53-47-5870XryzjxdxaeFhtcnmoa Rings Work Phone: [place] HospitalStart: 10-20-2017 End: 21-13-9517TemvbivfbcUWZSGDSDAKSHA Nevarez [facility] Centraltart: 66-82-5357Erxrlfm encounter procedureTERBrock [facility] Hospitaltart: 97-66-2423AqtctnirqnZGHFJR GHAZOULAvita Galion HospitalStart: 10-09-2017 End: 08-21-9805Relwtwi encounter procedureTERBrock [facility] Start: 21-18-0076Caukyjs encounter procedureTERA [facility] Start: 41-73-2045BjlygxfcfuMXOMQZ GHAZOULAvita Galion HospitalStart: 03-31-2017 End: 04-31-4327EinszesxclMEWZYZWCHASE Merino [facility] Procedures DateProcedureProcedure DetailPerforming ClinicianStart: 38-90-0465Hsuea metabolic panel calcium Rob PROCTOR Work Phone: Start: 02-92-5655F-reactive proteinKimberly Colton PROCTOR Work Phone: Start: 86-51-6983Qxqix function panelJacsanta Samson ETL APPLICATION DEVELOPER-C Work Phone: Start: 98-74-5935Oxlro metabolic panel calcium total Peter D [facility] DPM Work Phone: Start: 84-73-0860H-reactive proteinPeter D [facility] DPM Work Phone: Start: 98-44-5294RHLLXFYXLI CHECKPeter D [facility] DPM Work Phone: Start: 29-18-4267Hkclnnocrfczf metabolic panelBilly Jair MELENDREZ Work Phone: start: 09-09-6681Ipegc panelBilly Back Work Phone: start: 92-32-2145LWY FOOT RIGHT W WO CONTRAST Robbin Sánchez DPM Work Phone: Start: 29-69-2189Onp lower extrem oth/thn jt w/o & w/contr matrChristopher Adam Sánchez DPM Work Phone: Start: 28-80-3893Wycpa of urea nitrogen quantitative Robbin Sánchez DPM Work Phone: Start: 77-67-3103QYOU BUN + CREATININEChristopher Adam Sánchez DPM Work Phone: Start: 73-71-2145Vjocbqevbo examination foot 2 views Robbin Sánchez DPM Work Phone: Start: 04-04-2025 End: 27-88-4897Bntdy toe minimum 2 viewsSevero Case MD Work Phone: Start: 03-63-6668Z-reactive proteinSevero Case MD Work Phone: Start: 04-04-2025 End: 74-81-4120Xejgfxymibvkisha Case MD Work Phone: Start: 97-75-8410Wiwtyanbjzcyd metabolic Jignesh Adam MD Work Phone: start: 02-44-9128Rcwlt Jignesh Adam MD Work Phone: start: 48-64-2297Zo soft tissue head & neck real time imge Isiah Adam MD Work Phone: start: 14-65-1014Gdtzi function panelScatrina Forbes MD Work Phone: Start: 98-03-2548Dlghc dip stick/tablet rgnt auto w/o microscopySwdomenica Forbes MD Work Phone: Start: 66-69-5211Zlpvn Jignesh Adam MD Work Phone: start: 23-27-7352Hmoovuje Susan Cassidy DPM Work Phone: Start: 42-69-2650Tjt prim src wet mount nfct Sloan Mclean PA-C Work Phone: Start: 37-39-7248Cps lower extrem oth/thn jt w/o & w/contr matrChristopher J Princess DPM Work Phone: Start: 84-32-8247Oysmperzya examination foot 2 views Micky Lauren MD Work Phone: Start: 33-67-7972Mn soft tissue head & neck real time imge Isiah Adam MD Work Phone: start: 94-53-7504Idahavtxlysmp metabolic Jignesh Adam MD Work Phone: start: 82-57-9950Zguod Jignesh Adam MD Work Phone: start: 40-53-1363XN lumbar spine wo conStart: 81-50-7285FZ pre/post mri xrayStart: 03-35-4647Znndyaadcyz observation [Identifier] in Cervix by Cyto stainMwhz Education Work Phone: Start: 18-61-3733Nyfjw dip stick/tablet reagent auto microscopyLita Weeks MD Work Phone: Start: 52-06-6209Pwhuo dip stick/tablet reagent auto microscopyLita Weeks MD Work Phone: Start: 47-28-8429Tgonafrcndk panelGregory Forbes MD Work Phone: Start: 79-06-3323Ymako dip stick/tablet rgnt auto w/o microscopyGregory Forbes MD Work Phone: Start: 62-21-3740QYCFC-19Wendabril Hull PATENT LITIGATION ASSOCIATE - RESEARCH NEUROPSYCHOLOGIST Work Phone: Start: 93-07-8721YDCJL-Luis E Hartman Work Phone: Start: 33-96-7584Btuvk dip stick/tablet rgnt auto w/o microscopyRobbin Rooney Work Phone: Start: 09-16-2020 End: 82-82-4357Zyllx count complete auto&auto difrntl wbcChiain Rooney Work Phone: Start: 80-24-0733Lbytmnfuxqoip rate rbc automated Robbin Rooney Work Phone: Start: 83-84-1015Qjysb count complete auto&auto difrntl wbcLuis E Hartman Work Phone: Start: 41-11-0954T-reactive proteinLuis E Hartman Work Phone: Start: 17-61-2395Sfkxtvwgmgihi rate rbc automatedLuis E Hartman Work Phone: Start: 17-47-4805Mzmhk count complete auto&auto difrntl wbcLuis E Hartman Work Phone: Start: 63-07-9412P-reactive proteinLuis E Hartman Work Phone: Start: 21-46-6022Amdyhecojczmv rate rbc automatedLuis E Hartman Work Phone: Start: 62-72-4346Xesphjr total xcpt refractometry urineSwdomenica Forbes Work Phone: Start: 14-53-2625Rdxxy dip stick/tablet rgnt auto w/o microscopySwdomenica Forbes Work Phone: Start: 15-66-630913 hydroxy includes fractions if performedBilly Back Work Phone: start: 01-53-1415Geaovtpiuqkct metabolic panelBilly Back Work Phone: start: 32-72-1844Rfixiuorgm glycosylated a8mDkxrk Back Work Phone: start: 80-54-3717Swatr panelBilly Back Work Phone: start: 75-69-9703Arylouksdma direct measurement ldl cholesterolBilly Back Work Phone: start: 32-02-8421IGZJLWC FASTING?Felipe Back Work Phone: start: 33-48-9257G-reactive proteinNora Longthorne Work Phone: Start: 24-81-0248Sbuzfpvkan glycosylated i9yOyxpuepxlw Dieudonne Harmoniani PATENT LITIGATION ASSOCIATE - RESEARCH NEUROPSYCHOLOGIST Work Phone: Start: 29-92-4963FAAGDWS B12 & FOLATEJacqueline Dieudonne Harmoniani PATENT LITIGATION ASSOCIATE - RESEARCH NEUROPSYCHOLOGIST Work Phone: Start: 64-78-3616Gwapp spine cervical 4 or 5 viewsNora Longthorne Work Phone: Start: 24-71-2540Lrajf count complete auto&auto difrntl wbcNora Longthorne PATENT LITIGATION ASSOCIATE - RESEARCH NEUROPSYCHOLOGIST Work Phone: Start: 06-43-5457O-reactive proteinNora Longthorne PATENT LITIGATION ASSOCIATE - RESEARCH NEUROPSYCHOLOGIST Work Phone: Start: 50-40-9235Ahirkeo serum plasma/whole blood Heather Forbes Work Phone: Start: 13-63-3386Mnghv of magnesiumSwappierce Forbes Work Phone: Start: 15-04-4780Lixuk of phosphorus inorganicHeather Forbes Work Phone: Start: 55-64-7539Blpdh of urea nitrogen quantitative Heather Andrei Work Phone: Start: 20-25-7033Pekyy count hemoglobinSwappierce Forbes Work Phone: Start: 21-35-9965Pbspxrb totalSoumyaappierce Forbes Work Phone: Start: 27-10-3997Qussquurogh panelSwapna Andrei Work Phone: Start: 61-13-7492Mcrvrug total xcpt refractometry urineSwdomenica Forbes Work Phone: Start: 28-47-6989Eytsmxodti microscopic onlyHeather Forbes Work Phone: Start: 96-78-0341Ajsml dip stick/tablet rgnt auto w/o microscopySwdomenica Forbes Work Phone: Start: 27-31-4212T-reactive proteinLuis E Hartman Work Phone: Start: 02-78-0184Bmwfnervsjrpv rate rbc automatedLuis E Hartman Work Phone: Start: 27-32-9013YHF of cervical spine without contrastExternal TranscribedStart: 10-03-2018 End: 83-43-4307Dqmtuzkjphq examination of blood, cultureLuis JaureguiComment on above:Performed By: #### BC #### Unless otherwise noted, all testing performed by [facility] [employer] [address]jamirJason Ville [address] CLIA: [id number] Parts Counter Representative: Harshad Solano M.D.Start: 09-06-2018 End: 01-82-6771ZIDK (OUTSIDE)Historical ProviderStart: 08-31-2018 End: 04-36-0353OLCV (OUTSIDE)Historical ProviderStart: 39-97-0564QQ CONSULT TO HOME CARE NEEDSWAEDIN MARYtart: 93-57-3748Atafw of magnesiumWASEEDIN MARYtart: 64-03-0750Mjbxd metabolic panel calcium totalWASEEM YESSENIAANStart: 40-58-1173Wxewx count complete auto&auto difrntl wbcWASEEM YESSENIAANStart: 40-70-0355Nrruktqlxauzd (pct)JV YESSENIAtart: 82-78-0075GSIPDWIVP PATIENTWASEEM YESSENIAANStart: 08-25-2018 PULSE OXIMETRY, CONTINUOUSWASEEM YESSENIAANStart: 33-49-9723LERMAV PICC LINEWASEEM YESSENIAANStart: 67-73-6364OAUEDJNNWFPBI NURSING CARE ORDER (SPECIFY)JV USMANrt: 46-67-1705HQI ORDER FOR WALKER OPWASEEM YESSENIAANStart: 95-00-9342MIZYZ OXIMETRY, CONTINUOUSWASEEM YESSENIAANStart: 77-00-7265YACGTS PHYSICIAN (SPECIFY)JV APPLE Start: 37-40-7326RECJHQX COMMUNICATIONWASEEM YESSENIAANStart: 03-08-2629KSSBM CANNULA OXYGENWASEEM YESSENIAANStart: 08-77-5052TGWVTJDST SPIROMETRY RTWAEM YESSENIAtart: 70-07-9609VGJSTOIX OXYGEN THERAPY PROTOCOLWAEDIN CASAStart: 08-27-7429OLUFI OXIMETRY, CONTINUOUSWASEEM YESSENIAANStart: 87-46-1449Vhkfc of magnesiumJV APPLE Start: 05-87-6969Gpdmq metabolic panel calcium totalWASEEM YESSENIAANStart: 08-25-2018 Blood count complete auto&auto difrntl wbcWASEEDIN CASASANStart: 90-19-0663AYJBX OXIMETRY, CONTINUOUSWASEEM KHANStart: 22-49-0948XGEON OXIMETRY, CONTINUOUSWASEEM YESSENIAANStart: 82-51-5962NRAMZ OXIMETRY, CONTINUOUSWASEEM YESSENIAANStart: 09-49-7981RPIR GENERALWASEEM YESSENIAANStart: 43-97-7895UD EVAL AND TREATWABRENDA MARYtart: 41-55-4790CM EVAL AND TREATWASEEDIN MARYtart: 88-62-9426ZAKPT OXIMETRY, CONTINUOUSWASEEDIN MARYtart: 47-69-5398LLYBC OXIMETRY, CONTINUOUSWABRENDA APPLE Start: 73-39-5509ETWWVJODB SPIROMETRY RTWABRENDA CASASANStart: 46-95-7069TRIKZRYH OXYGEN THERAPY PROTOCOLWAEDIN MARYtart: 68-61-0740BHXRW OXIMETRY, CONTINUOUS JV YESSENIAANStart: 97-62-3779QZST FAST CULTURE WITH SMEARBRENDA CASAStart: 53-87-8787FPGXOL STAINWAEDIN CASAStart: 46-97-5405WFBCNZ CULTUREMTBRENDA APPLE Start: 83-54-7220KRBUUK CULTUREMTBRENDA MARYtart: 16-29-5999ECFRK OXIMETRY, CONTINUOUSWAEDIN MARYtart: 29-38-6061Dtbkbphgwrvog (pct)JV KHtart: 43-30-5639PCKAS OXIMETRY, CONTINUOUSWAEDIN CASASANStart: 29-32-1707OWHPX CAREWAEDIN CASAStart: 19-30-8467WZDLPLIPDSDQH NURSING CARE ORDER (SPECIFY)JV APPLE Start: 31-77-3005FRIIUDTL PATIENTWAEDIN MARYtart: 73-50-0812ERVHRT FOR SURGICAL PROCEDURESEDIN MARYrt: 42-92-1944BLJZMCBYL AND AEROBIC CULTUREJV APPLE Start: 90-74-0248KSERD OXIMETRY, CONTINUOUSWABRENDA CASASANStart: 69-19-8454GWQTE OXIMETRY, CONTINUOUSWABRENDA CASASANStart: 80-01-3756MYNUN OXIMETRY, CONTINUOUSWABRENDA CASASANStart: 79-63-6441VQ CONSULT TO IV TEAMEDIN CASAStart: 90-82-8192WVYTIPABC SPIROMETRY RTBANNER DESERT MEDICAL CENTEREDIN MARYtart: 47-14-5060OXWTGCBZ OXYGEN THERAPY PROTOCOLMTBRENDA MARYtart: 89-46-2840LOGCH OXIMETRY, CONTINUOUSWABRENDA CASASANStart: 08-23-2018 Blood count complete auto&auto difrntl wbcCEDAR RIDGE [facility] [place] KHtart: 08-23-2018 Comprehensive metabolic panelWASE YESSENIAANStart: 31-20-6138Beajzuhzznl platelet assayWASEEM KHANStart: 70-62-6006CZHHE OXIMETRY, CONTINUOUSWASEEM KHANStart: 42-54-4713XQAIC OXIMETRY, CONTINUOUSWASEEM KHANStart: 77-44-8955GUFNT OXIMETRY, CONTINUOUSWASEEM KHANStart: 42-86-9565YWDXE OXIMETRY, CONTINUOUSWASEEM APPLE Start: 09-92-5806UOPAT OXIMETRY, CONTINUOUSWASEEM KHANStart: 56-66-2846ODWVIUEIU SPIROMETRY RTWASEEM YESSENIAANStart: 91-48-3149IQNGUMJI OXYGEN THERAPY PROTOCOLSE USMANtart: 90-92-0665KWXEI OXIMETRY, CONTINUOUSWASEEM KHANStart: 08-22-2018 Assay of magnesiumWASEEM YESSENIAANStart: 74-89-5990Hymzl count complete auto&auto difrntl wbcSE YESSENIAANStart: 64-17-6967BZQVKSZLTC, TROUGHSEEM YESSENIAANStart: 24-33-9616RFBKN OXIMETRY, CONTINUOUSWASEEM KHANStart: 96-96-8695WJOSZ OXIMETRY, CONTINUOUSWASEEM KHANStart: 47-45-5061FYKMU OXIMETRY, CONTINUOUSWASEEM APPLE Start: 42-20-3860Utvxrtyamyrit (pct)JV USMANtart: 25-09-7754HDJBA OXIMETRY, CONTINUOUSWASEEM KHANStart: 73-35-2159ZWPPK OXIMETRY, CONTINUOUSWASEEM APPLE Start: 64-10-9968Tni lower extrem oth/thn jt w/o & w/contr matrWASEEM USMANtart: 43-38-8995MGDDXYYSV SPIROMETRY RTWASEEM YESSENIAANStart: 55-70-0354JJCFHBHG OXYGEN THERAPY PROTOCOLWASEEM YESSENIAANStart: 33-13-9897CYTZX OXIMETRY, CONTINUOUSWASEEM KHANStart: 59-01-0723Ejxza of magnesiumWASEEM YESSENIAANStart: 69-27-6733Hqnev count complete auto&auto difrntl wbcWASEEM YESSENIAANStart: 55-31-0178ULPMJ OXIMETRY, CONTINUOUSWASEEM KHANStart: 95-83-5964AXNHK OXIMETRY, CONTINUOUSWABRENDA APPLE Start: 01-76-2346OBWMR OXIMETRY, CONTINUOUSWABRENDA MARYtart: 08-20-2018 MISCELLANEOUS NURSING CARE ORDER (SPECIFY)JV MARYtart: 83-61-7701Feqde foot complete minimum 3 viewsWAEDIN MARYtart: 03-97-3948CIGKZ OXIMETRY, CONTINUOUS JVMARISABEL MARYtart: 79-41-4698U-reactive proteinCEDAR RIDGE [facility] [place] USMANtart: 08-20-2018 SEDIMENTATION RATEBRENDA MARYtart: 37-15-5128HZXMZ OXIMETRY, CONTINUOUSJV MARYtart: 65-86-7704HJDKOKFNT SPIROMETRY RTBANNER DESERT MEDICAL CENTEREDIN MARYtart: 00-91-9185TWKPSUGM OXYGEN THERAPY PROTOCOLBANNER DESERT MEDICAL CENTEREDIN MARYtart: 39-06-8290CNXGT OXIMETRY, CONTINUOUS JVMARISABEL MARYtart: 16-12-0967Qltdz of magnesiumEDIN MARYrt: 61-39-7959Qvfpm count complete auto&auto difrntl wbcEDIN MARYtart: 52-89-8611YSSRI OXIMETRY, CONTINUOUSJV MARYtart: 18-21-4021BDEWE OXIMETRY, CONTINUOUSJV APPLE Start: 17-36-2387VALBI OXIMETRY, CONTINUOUSJV MARYtart: 30-03-6922AB CONSULT TO ORTHOPEDIC SURGERYCEDAR RID[facility] [place] USMANrt: 83-62-2324Wjblnzlizxirq (pct) JV MARYrt: 91-04-2704SFWZB OXIMETRY, CONTINUOUSJV MARYtart: 99-35-8757Wrs spinal canal cervical w/o & w/contr matrlWAEM YESSENIAANStart: 87-77-8220Dvz spinal canal lumbar w/o & w/contr matrlWAEM USMANtart: 74-46-3499Loq spinal canal thoracic w/o & w/contr matrlWAEM USMANtart: 92-29-2542MOKAW OXIMETRY, CONTINUOUSJV MARYtart: 15-25-9643DSGDBXGEA SPIROMETRY RTBANNER DESERT MEDICAL CENTEREDIN MARYtart: 79-74-7667CLWRBKKP OXYGEN THERAPY PROTOCOLBANNER DESERT MEDICAL CENTEREDIN MARYtart: 56-09-2452ZZQTH OXIMETRY, CONTINUOUSWASEEM YESSENIAANStart: 49-10-4759ZL CONSULT TO IV TEAMJV MARYtart: 35-28-4287Uiteo of magnesiumJV APPLE Start: 25-55-5310Inhme count complete auto&auto difrntl wbcWABRENDA MARYtart: 47-01-7380ZKNCX OXIMETRY, CONTINUOUSWASEEM YESSENIAANStart: 58-93-6949OYDUO OXIMETRY, CONTINUOUSWASEEM YESSENIAANStart: 02-02-3419FCXCS OXIMETRY, CONTINUOUSJV APPLE Start: 34-02-0937YAJSB OXIMETRY, CONTINUOUSWASEEM YESSENIAANStart: 26-28-1837ORFEU OXIMETRY, CONTINUOUSWASEEM USMANtart: 40-04-6757MVSUZKHSG MONITORINGJV APPLE Start: 12-67-1921ZHDMMFGBL SPIROMETRY RTJV MARYtart: 59-46-2085EFNPXWNP OXYGEN THERAPY PROTOCOLMTBRENDA MARYtart: 98-56-1149MOXZS OXIMETRY, CONTINUOUS JV YESSENIAANStart: 55-63-5119Qywjm of magnesiumJV MARYtart: 43-14-5262Tepio count complete auto&auto difrntl wbcWABRENDA MARYtart: 93-83-7246GASFWTVNOB, TROUGHWABRENDA MARYtart: 06-37-8069WMJBM OXIMETRY, CONTINUOUSWASEEDIN MARYtart: 83-31-0918JLMMA OXIMETRY, CONTINUOUSWASEEM YESSENIAANStart: 52-10-1372POFIG OXIMETRY, CONTINUOUSWASEEM YESSENIAANStart: 73-31-5226Hfumqglyhkmyb (pct)JV KHANStart: 66-40-6883XMZUR OXIMETRY, CONTINUOUSWASEEM YESSENIAANStart: 04-51-3978ZSWVSSY BLOOD #1 JVMARISABEL MARYtart: 12-48-5041KWUMD OXIMETRY, CONTINUOUSWASEEM YESSENIAANStart: 82-71-2002Jclc tthrc r-t 2d w/wom-mode compl spec&colr dWASEEDIN MARYtart: 47-36-3909CFLOWQUYU SPIROMETRY RTMTBRENDA MARYtart: 91-86-0800GOHDJQRZ OXYGEN THERAPY PROTOCOLBANNER DESERT MEDICAL CENTEREDIN MARYtart: 41-47-4587PZLTK OXIMETRY, CONTINUOUSWASEEM YESSENIAANStart: 99-61-4352Ovimc of magnesiumWASEEM USMANtart: 74-69-8280Ekbdc count complete auto&auto difrntl wbcWASEEM USMANtart: 29-29-8207R-reactive protein JV USMANtart: 21-64-3015TWFAEQYDPHYXI RATEWASEEM USMANtart: 53-35-2620IAAHC OXIMETRY, CONTINUOUSWASEEM KHANStart: 84-35-7900Benq tthrc r-t 2d w/wom-mode compl spec&colr dWASEEM YESSENIAANStart: 91-38-7726KIVRE OXIMETRY, CONTINUOUSWASEEM YESSENIAANStart: 00-94-9759LHPXN OXIMETRY, CONTINUOUSWASEEM YESSENIAANStart: 20-57-9644KBPAO OXIMETRY, CONTINUOUSWASEEM YESSENIAANStart: 80-07-9913YZGAZ OXIMETRY, CONTINUOUS JV YESSENIAANStart: 71-65-5698Ohk-scan xtr veins complete bilateral studyWASE YESSENIAtart: 48-91-8941Kmol tthrc r-t 2d w/wom-mode compl spec&colr dWMITCHEL APPLE Start: 59-95-2530Te head/brain w/o contrast materialWACEDAR RIDGE HOSPITAL [facility] [place] YESSENIAtart: 08-16-2018 Radiologic exam chest 2 viewsCEDAR RID[facility] [place] [facility] YESSENIArt: 75-84-8846JZSRHMMTL SPIROMETRY RT JV USMANrt: 10-26-8695DUXEGXND OXYGEN THERAPY PROTOCOLCEDAR RIDGE [facility]OSPITAL [facility] [place] USMANrt: 80-36-5471HUTNJ OXIMETRY, CONTINUOUSWASEEM YESSENIAANStart: 76-59-6094SZAFFFN ISOLATIONWASE USMANtart: 34-48-9682Qgtcc of lactateWASEEM YESSENIAtart: 50-35-9214YLISEWY, IONIZEDWASEEM YESSENIAtart: 13-44-0485BQ CONSULT TO IV TEAM JVMARISABEL MARYrt: 02-71-0586Ftxqf of magnesiumWASEEM USMANtart: 78-42-8698Liqjg count complete auto&auto difrntl wbcCEDAR RIDGE [facility] [place] USMANrt: 02-16-8581Pwuwdewvopb time JV USMANtart: 03-03-3314RWSRQ OXIMETRY, CONTINUOUSWACEDAR RIDGE HOSPITAL [facility] [place] YESSENIAtart: 99-25-5558ZKWYO WEIGHTSWACEDAR RIDGE HOSPITAL [facility] [place] YESSENIAtart: 64-66-0458TVFBP OXIMETRY, CONTINUOUS JV YESSENIAANStart: 91-24-0251ABB 12-LEADWACEDAR RIDGE HOSP[facility] [place] USMANtart: 88-78-7561Okkep of lactateCEDAR RIDGE [facility]OSP[facility] [place] [facility] YESSENIAtart: 54-16-9867Uxydfnlj I.cardiac mass concPROVIDENCE MOUNT CARMEL HOSPITALtart: 33-77-9807IEPDY OXIMETRY, CONTINUOUSWAEM tart: 82-50-6887HMWDLQFG RT PROTOCOLSAINT JOHN'S BREECH REGIONAL MEDICAL CENTERrt: 78-03-2749VKTPZIDEUV ANTIGEN, URINESAINT JOHN'S BREECH REGIONAL MEDICAL CENTERrt: 73-78-1856HUKGC PNEUMONIAE ANTIGENSAINT JOHN'S BREECH REGIONAL MEDICAL CENTERrt: 72-35-9765VZ CONSULT TO NEUROLOGYRAY COUNTY MEMORIAL HOSPITALrt: 88-60-5135Ohhdn of lactatePROVIDENCE MOUNT CARMEL HOSPITALREYESrt: 55-99-8513Zhgrfau bacterial blood aerobic w/id isolatesSAINT JOHN'S BREECH REGIONAL MEDICAL CENTERrt: 23-70-3949ZQUVTAR BLOOD #1SA[facility]IONAL MEDICAL CENTERtart: 11-00-8817ENIVMLODJC PNEUMONIAE ANTIBODY, IGMSAINT JOHN'S BREECH REGIONAL MEDICAL CENTERrt: 40-47-0894Gbwkhircnvqcn (pct)JV KHrt: 93-25-9495Yzrjfcvi I.cardiac mass concPROVIDENCE MOUNT CARMEL HOSPITALrt: 15-81-8965HZZBBDMU PRIVILEGES WITH ASSISTANCERAY COUNTY MEMORIAL HOSPITALrt: 97-99-5164TLCOZRLON MONITORINGMOSAIC LIFE CARE AT ST. JOSEPHrt: 11-59-5340Wdy bact xcpt urine blood/stool aerobic isolPUSHMATAHA HOSPITAL – ANTLERS APPLE Start: 74-87-4625OAATELJRF DEEP BREATHING AND COUGHINGSAINT JOHN'S BREECH REGIONAL MEDICAL CENTERrt: 01-27-4741ZAVY CODEWASAINT JOHN'S BREECH REGIONAL MEDICAL CENTERREYESrt: 14-38-5390FPCXUULIS SPIROMETRY RTRAY COUNTY MEMORIAL HOSPITALrt: 45-41-4648QDXZKOUD OXYGEN THERAPY PROTOCOLRAY COUNTY MEMORIAL HOSPITALrt: 20-28-7219PGHXAI AND OUTPUTMOSAIC LIFE CARE AT ST. JOSEPHtart: 87-05-6952DK CONSULT TO INFECTIOUS DISEASESBarnesville Hospitalrt: 80-71-7102Shdkcnosysr observation Gram stain Nom (Unsp spec)JV MARYrt: 04-26-7479ISCCEU PHYSICIAN (SPECIFY)JV MARYrt: 65-20-2969OFXEMONF TO DOSE VANCOMYCINWASEEM USMANrt: 86-69-4849DFHCL INTERMITTENT PNEUMATIC COMPRESSION DEVICEWASEEM YESSENIArt: 21-41-0803MQHIC OXIMETRY, CONTINUOUSWASEEM USMANrt: 73-69-2087CRPLK SIGNSWACEDAR RIDGE HOSPITAL – [place] USMANrt: 07-81-6184VKJHVQK STATUS (DIRECT)JV MARYrt: 38-89-0545CfpaxtsgfckRpakx Back Work Phone: start: 90-75-6024Ntkoskueyjj observation [Identifier] in Cervix by Cyto Armani Casas Plan of Treatment DateCare ActivityDetailAuthorStart: 56-50-0464Onyjf panelLipidsBon [facility] CenterStart: 95-10-6770Yfstl panelLipChesapeake Regional Medical CenterStart: 13-94-2860Ilipwwkg Vaccine (1 of 2)Shingles Vaccine (1 of 2)[place] Start: 31-71-6113Xfdln panelLipidsBON [facility]ICH[facility] HOSPITALStart: 12-10-2027 Screening for malignant neoplasm of colonBon [facility] CenterStart: 24-76-7365Yjeed panelLipidsSmyth County Community Hospitalart: 69-21-2876Uuyknyloi for malignant neoplasm of breastBreast cancer screenBon [facility] Start: 10-03-5745IVK test (Diabetes, CKD 3-4, OR last GFR 15-59)GFR test (Diabetes, CKD 3-4, OR last GFR 15-59)[facility]art: 06-12-2026 GFR test (Diabetes, CKD 3-4, OR last GFR 15-59)GFR test (Diabetes, CKD 3-4, OR last GFR 15-59)[facility] HospitalStart: 09-56-3522BWS test (Diabetes, CKD 3-4, OR last GFR 15-59)GFR test (Diabetes, CKD 3-4, OR last GFR 15-59)[facility] Hospitalart: 40-18-4708Ddgbu panelClermont County Hospital HealthStart: 27-94-0613XUH test (Diabetes, CKD 3-4, OR last GFR 15-59)GFR test (Diabetes, CKD 3-4, OR last GFR 15-59)[facility] HospitalStart: 46-16-6626Bjgcyarfqe A1c measurement A1C test (Diabetic or Prediabetic)Bon [facility] CenterStart: 35-29-1525MQU test (Diabetes, CKD 3-4, OR last GFR 15-59)GFR test (Diabetes, CKD 3-4, OR last GFR 15-59)Bon [facility] CenterStart: 46-60-0946Ukyqrhbrfb Monitoring Depression MonitoringSentara Obici HospitalStart: 17-35-0903ZGY test (Diabetes, CKD 3-4, OR last GFR 15-59)GFR test (Diabetes, CKD 3-4, OR last GFR 15-59)[facility] HospitalStart: 11-21-8954Yqumuzuyao A1c lvbqhouhcvrE4K test (Diabetic or Prediabetic)[facility] HospitalStart: 10-12-2025 End: 64-64-9403Coxkkxv encounter ghdxrybfw16/08/2026 10:30 AM EST Office Visit [facility] [address] [place] [address] [place] [address] Dimas Adair MD [address] [place] [address] [phone] [facility] Nose and Throat PhysiciansStart: 10-11-2025 End: 20-15-5865EA Head and neck soft tissueUS Soft Tissue Neck Imaging Routine Thyroid nodule Expected: 10/11/2025, Expires: 10/11/2026[facility] Work Phone: Comment on above:Expected: 10/11/2025, Expires: 10/11/2026Start: 08-23-2025 End: 83-88-3928Zejciea encounter wymkdpcll21/19/2025 1:00 PM EST Office Visit [facility] [address] [place] [address] Jennie Van APRN-RESEARCH NEUROPSYCHOLOGIST [address] [place] [address] [facility] NeurologyStart: 07-27-2025 End: 96-59-1446Lzbnmku encounter lycpnorvg31/23/2025 11:00 AM EDT Office Visit [facility] [address] [facility], [phone] Felipe Adam MD [address] [place] [address] Return in about 3 months (around 07/19/2025).[facility] HospitalCommun[facility] on above:Return in about 3 months (around 07/19/2025).Start: 93-60-8960XHCDX-19 Vaccine ( season)COVID-19 Vaccine ()Denton Rahman [facility] CenterStart: 05-31-2025 End: 48-04-9304GD Cervical spine 4 or 5 ViewsXR cervical spine complete 4 to 5 views Imaging Routine Cervical paraspinal muscle spasm Expected: 05/31/2025, Expires: 05/24/2026[facility] Work Phone: Comment on above:Expected: 05/31/2025, Expires: 05/24/2026Start: 03-41-1512Jubdp panelClinton, KYStart: 05-24-2025 End: 43-70-7784Zgxvciu encounter voiogbpms58/20/2025 11:30 AM EDT Office Visit [facility] [address] [place] [address] Jennie Van, PATENT LITIGATION ASSOCIATE-RESEARCH NEUROPSYCHOLOGIST [address] [facility] [place] [address] [facility] NeurologyStart: 05-17-2025 End: 93-31-6100Kgtyzwr encounter /13/2025 1:20 PM EDT Office Visit [facility] [address] [place] [address] Trace Casas MD [address] [facility] [address] [place], [place] [id number] [facility] NEURStart: 05-15-2025 End: 12-77-2136Zvsocvq encounter xezwxuwqz45/11/2025 1:15 PM EDT Office Visit [facility] [address] [place] [address] Felipe Adam MD [address] [place] [address] Return in about 6 months (around 05/15/2025).[facility] HospitalCommun[facility] on above:Return in about 6 months (around 05/15/2025).Start: 19-65-5364KYH test (Diabetes, CKD 3-4, OR last GFR 15-59)GFR test (Diabetes, CKD 3-4, OR last GFR 15-59)[facility]: 09-14-7427Woagpxtpg vaccinationBon [facility]: 05-02-2025 Hemoglobin A1c ljmswuucyiyX2L test (Diabetic or Prediabetic)[facility]: 05-02-2025 End: 96-50-5032Hidvudl encounter rfibqxxos69/29/2025 2:00 PM EDT Office Visit [facility] B [address] [facility] [address] [place] [phone] Fozia Meng, ETL APPLICATION DEVELOPER [address], [facility] [address] [place] [phone] [facility] NEUR BStart: 05-01-2025 End: 40-17-8109Upwrwwe encounter szcvwrofb13/28/2025 4:00 PM EDT Office Visit [facility] [address] [facility] [place] [place] [address] Robbin Sánchez, DPM [address] [place] [address] [facility]IATRYStart: 04-20-2025 End: 28-49-9723Ihxbdsv encounter ksvwzjusf48/17/2025 12:45 PM EDT Office Visit [facility] [address] [place] [phone] Robbin Sánchez DPM [address] [place] [address] ArrivedNOMS WWW PODIATRYComment on above:ArrivedStart: 04-06-2025 End: 05-14-8504Knldgvx encounter ayxqcgeuy06/03/2025 4:30 PM EDT Office Visit [facility] [address] [place] [address] Robbin Sánchez DPM [address] [place] [address] ArrivedNOMS WWW PODIATRYComment on above:ArrivedStart: 04-06-2025 End: 89-69-6387Jqmnvytpgq [Mass/volume] in Serum or PlasmaCreatinine, Serum Lab Routine Right foot pain Expected: 04/06/2025 (Approximate), Expires: 04/06/2026 [facility] HealthcareComment on above:Expected: 04/06/2025 (Approximate), Expires: 04/06/2026Start: 04-06-2025 End: 64-47-6014PH Foot - right WO and W contrast IVMR foot right w and wo IV contrast Imaging STAT Right foot pain Expected: 04/06/2025, Expires: 04/06/2026 [facility] Work Phone: comment on above:Expected: 04/06/2025, Expires: 04/06/2026Start: 03-14-2025 End: 83-52-2932Gdgutmu encounter procedureNOMS [facility] NEUR BStart: 02-13-2025 End: 73-41-6830Hzbsyvu encounter kjscoqsuu70/12/2025 1:00 PM EDT Office Visit [facility] [address] [facility] [address] [place] [address] Trace Casas MD [address] [facility] [address], [place] [address] [facility] NEURStart: 91-93-9402Xmzdcbbhjk MonitoringDepression MonitoringBON MERCY HEALTH ST. [facility] HOSPITALStart: 11-15-2024 End: 43-49-2325Ejjyjjg encounter smcyztzwy34/11/2025 2:45 PM EST Office Visit [address] [address] Felipe Adam MD [address] [place] [address] 6 [facility] CenterCommun[facility] on above:6 moStart: 11-14-2024 End: 22-60-5519Fgxboau encounter procedureNOMS [facility] NEURComment on above:Arrived Start: 11-11-2024 End: 10-29-8406Cmwamja encounter rnpeddcfm70/07/2025 1:00 PM EST Office Visit [address] [address] Felipe Adam MD [address] [place] [address] 6 [facility] CenterCommun[facility] on above:6 moStart: 84-42-5305Wbyerepuh for malignant neoplasm of cervixBON SECOURS RICHMOND [facility] HOSPITALStart: 09-14-2024 End: 36-22-9263Frjcoin encounter xcxjefbrh82/11/2024 11:20 AM EST Office Visit [facility] [address] [facility] [address] [place] [address] Fozia Meng ETL APPLICATION DEVELOPER [address], [facility] [address] [place] [phone] ArrivedNOMS [facility] NEURComment on above: ArrivedStart: 77-91-6531IOdL/Tdap/Td vaccine (2 - Td or Tdap)DTaP/Tdap/Td vaccine (2 - Td or Tdap)[facility]: 13-28-4582FQtM/Tdap/Td vaccine (2 - Td)DTaP/Tdap/Td vaccine (2 - Td)[facility] [place]Start: 16-60-3679Wgduxvf vaccinationOhioGeorgetown Behavioral HospitalStart: 09-05-2024 End: 09-08-2336Prmemsl encounter bavjleogg42/02/2024 1:00 PM EST Office Visit [facility] [address] [facility] [address] [place] [address] Trace Casas MD [address] [place] [address] [facility] NEURStart: 08-18-2024 End: 89-26-7998Xztnxnn encounter uivsupmzu53/14/2024 1:30 PM EST Office Visit [facility] [address] Specialty [place] [address] Luis Mclean, PA-C [address] [place] [address] [address] [facility] UrologyComment on above:1 yr med chkStart: 08-02-2024 End: 38-52-6656Mymuhxi encounter ubpidbxwy49/29/2024 10:45 AM EDT Office Visit [facility] [address] [place] [address] Cheryl Miles DO [address] [place] [address] [facility] NEUROStart: 07-11-2024 End: 14-88-2159Momvdzhobsgx consultation with yxoftfo3007/11/2024 11:30 AM EDT Telemedicine [facility] [address] [place] [address] Janel Allen ETL APPLICATION DEVELOPER [address] [facility] [place] [address] N[facility]S [facility] NEURO 210Start: 06-10-2024 End: 72-13-2214Zcbvsid encounter yhcirvoez36/06/2024 10:20 AM EDT Office Visit [facility] NEUR [address] [facility] [address] [place] [address] Trace Casas MD [address] [place] [address], [place] [id number] ArrivedNOMS [facility] NEURComment on above: ArrivedStart: 01-31-0190NTNDX-19 Vaccine ( season)COVID-19 Vaccine ( season)[facility]Start: 63-26-1848NXCMU-19 Vaccine ( season)COVID-19 Vaccine ( season)[facility]: 06-05-2024 Influenza vaccinationInfluenza Vaccine (#1)[facility]Start: 48-78-7432Iqtoqldrn for malignant neoplasm of colonBon [facility] CenterStart: 61-04-7960TMF test (Diabetes, CKD 3-4, OR last GFR 15-59)GFR test (Diabetes, CKD 3-4, OR last GFR 15-59)[facility]Start: 83-22-3205Ekpxwway screenDiabetes screen [facility] CenterStart: 05-12-2024 End: 68-94-2266Qxusvzk encounter vcbaswzco45/08/2024 11:00 AM EDT Office Visit [facility] Part of [address] [address] Lina Echols MD [address] [facility] [address] [place] [address] BUCK (obstructive sleep apnea)[facility] OUTREACH PULM Part of [facility] HospitalComment on above: BUCK (obstructive sleep apnea)Start: 17-49-9488Zrceq panelLipid screenCleveland Clinic [facility], KYStart: 64-40-9261Unpoc screenLipid [facility], [place] Start: 31-35-4921Kjjuqmilx vaccinationFlu vaccine (#1)[facility] Start: 35-89-5634Znxudoggvg MonitoringDepression MonitoringBON [facility] Hospitalart: 72-03-6072LXV test (Diabetes, CKD 3-4, OR last GFR 15-59)GFR test (Diabetes, CKD 3-4, OR last GFR 15-59)[facility] 02-06-2024 Hemoglobin A1c dyghvspnwasU0O test (Diabetic or Prediabetic)[facility]art: 08-13-2023 End: 82-08-3531Pgkvlvm encounter procedureUk Healthcareard UrologyStart: 06-22-2023 End: 47-65-3010Yvrofqq encounter bodrgrqwm28/18/2023 11:15 AM EDT Office Visit [address] Felipe Adam MD [address] [place] [address] [facility]: 06-05-2023 Influenza vaccinationSequential Influenza Vaccine (Season Ended)[facility]Start: 36-38-8316Fiukxoftt vaccinationBON [facility] Hospitalart: 04-14-2023 End: 82-32-2209Bvvtuzv encounter bpjsiuivn58/11/2023 Office Visit Family Medicine Felipe Adam MD [address] [place] [address] [facility]: 30-25-4442Golvvnkkdk A1c llszultdxuoO4O test (Diabetic or Prediabetic)BON [facility]: 76-30-1233Oasvrwsjof MonitoringDepression MonitoringBON [facility] Start: 96-80-2381Sijtuqu and physical examination, annual for health maintenance Wellness VisitOhioHealthStart: 12-25-2022 End: 29-04-2982Rwhugbo encounter hgxbugkuu82/23/2023 Office Visit Infectious Diseases Dav Hartman MD [address] [facility] [address] [place] [address] [facility], [facility].Start: 18-74-8928Sixtovpw screenDiabetes screenCleveland Clinic [facility] Hospital, [place]Start: 08-07-2022 End: 73-55-2966Ioixqko encounter pvypcybma27/03/2022 Office Visit Urology Luis Mclean, PA-C [address] [facility] [address] [address] [facility]rologyStart: 07-15-2022 End: 57-04-6417Lzdaiho evaluation of patient and lpudzc4007/15/2022 Nurse Only [facility]Mer [facility]: 07-09-2022 End: 02-52-0388Rzzqfms encounter enkuqkvea64/05/2022 Appointment IP Unit Samantha Lino RD, LD [facility] Diet and NutritionStart: 06-05-2022 Influenza vaccinationClermont County Hospital HealthStart: 07-20-6022Asmzyspzsz measurementClermont County Hospital HealthStart: 74-87-0388Fylnbxwuw [Moles/volume] in Serum or PlasmaPotassiumClermont County Hospital HealthStart: 03-40-1948Andvwmdvp monitoringPotassium monitoringClermont County Hospital Health Start: 78-54-1599Dmxkjlqtcg measurementCreatinine monitoringMer Health Work Phone: start: 53-07-8160Wiijtxjrj monitoringPotassium monitoringClermont County Hospital Health Work Phone: start: 05-49-5096Qdzbhzwkc vaccinationFlu vaccine (#1) [facility]Start: 32-87-9538Hxyzfsfpg for malignant neoplasm of cervixOhioHealthStart: 02-05-2022 End: 18-29-6687Qpyzpoh encounter jhhtijxrf37/04/2022 Appointment Physical Therapy Christel Donohue PTMWHZ Physical TherapyStart: 02-03-2022 End: 50-33-2852Bhmsnsd encounter procedureBETTYE Physical TherapyStart: 01-30-2022 End: 09-24-5781Lwruvar encounter procedureOhiohealth UrologyStart: 01-29-2022 End: 10-10-5316Avbfwrk encounter jggbqshyp22/27/2022 Appointment Physical Therapy Beverly Rangel PTAMWHZ Physical TherapyStart: 01-27-2022 End: 96-51-9727Zzdfffi encounter guobvpjsr81/25/2022 Appointment Physical Therapy Christel Donohue PTMWHZ Physical TherapyStart: 01-24-2022 End: 72-27-5040Jbvjife encounter alkewufei64/22/2022 Appointment Physical Therapy Vanessa Garcia PTMWHZ Physical TherapyStart: 01-22-2022 End: 82-31-4078Odzceoe encounter /20/2022 Appointment Physical Therapy Beverly Rangel PTAMWHZ Physical TherapyStart: 01-17-2022 End: 04-24-5601Bnipknn encounter cjlwqyxya57/15/2022 Appointment Physical Therapy Beverly Rangel PTAMWHZ Physical TherapyStart: 01-10-2022 End: 66-04-9439Fvbmlcm encounter pziwoyplf03/08/2022 Appointment Physical Therapy Christel Donohue PTMWHZ Physical TherapyStart: 01-08-2022 End: 89-59-8639Slnwdny encounter hvlbyyxkd91/06/2022 Appointment Physical Therapy Beverly Rangel PTAMWHZ Physical TherapyStart: 01-02-2022 End: 50-30-4819Pjkelyt encounter gotkveyyj05/31/2022 Appointment Occupational Therapy Judi Marie OTA [address] [place] [address] MWHZ Occupational TherapyStart: 59-70-4949Clwftvvz screenDiabetes screen [facility], [place]Start: 12-31-2021 End: 00-52-0060Qirjpas encounter procedureMWHZ Physical TherapyStart: 12-30-2021 End: 66-26-1381Dsfqmex encounter sivkhnrfv92/28/2022 Appointment Occupational Therapy Cheryl Herman OTMWHZ Occupational TherapyStart: 12-27-2021 End: 15-55-5769Ahpvaap encounter tdouwzyen49/25/2022 Appointment Occupational Therapy Eve Gaspar OTAMWHZ Occupational TherapyStart: 11-14-2021 End: 25-93-0740Ayxyqrj encounter txcqypnmy70/10/2022 Office Visit Family Felipe Banerjee MD [address] [place] [address] [facility] HospitalStart: 98-90-0534Winddojhpz MonitoringDepression MonitoringMemorial Health System Selby General HospitalAria NetworksStart: 59-27-8880Syruvakbau measurementCreatinine monitoringMemorial Health System Selby General HospitalAria Networks Work Phone: start: 89-33-3725Mblflgmfe monitoringPotassium monitoringMemorial Health System Selby General HospitalAria Networks Work Phone: start: 08-01-2021 End: 29-27-1909Kptimsr encounter kjynuygan66/28/2021 Office Visit Urology Lita Weeks MD [address] [place] [address], [place] [address] [phone] ReDent [facility] Watkins UrologyStart: 06-05-2021 Influenza vaccinationMer HealthStart: 46-15-1598Ksaysmevkc measurement Creatinine Natural DentistMemorial Health System Selby General HospitalExterity, [place]Start: 24-16-8679CvT6g (Bld) [Mass fraction]A1C test (Diabetic or Prediabetic)AppCard, ShoprocketStart: 05-25-2021 Hemoglobin A1c grbxhneytkdN5X test (Diabetic or Prediabetic)Box Phone: start: 66-54-0538Oetmlofgm monitoringPotassium Natural DentistMemorial Health System Selby General HospitalExterity, [place]Start: 11-13-2020 End: 61-20-8986Ozxdak Visit11/13/2020 Office Visit Family Felipe Banerjee MD [address] [place] [address] [phone] [facility] HospitalStmanchester: 97-34-5900Fuaorpqee monitoringPotassium [facility]: 10-23-2020 End: 03-85-8210Znqemt Visit10/23/2020 Office Visit Infectious Diseases Dav Hartman MD [address] [facility]. [address] [place] [address] [phone] [facility] IncStart: 85-98-4492CrV7z (Bld) [Mass fraction]A1C test (Diabetic or Prediabetic)[facility]: 96-56-0059Iqxuubcqdc measurementCreatinine [facility]: 87-63-9845Nupfpoccdh monitoringCreatinine [facility]: 82-04-7866Ximystfno monitoringPotassium [facility]: 06-12-2020 End: 72-46-7427Cxazfw Visit06/12/2020 Office Visit Infectious Diseases Dav Hartman MD [address] [facility]. [address] [place] [address] [phone] [facility], IncStart: 13-31-8512Gicmzdgky vaccinationFlu vaccine (#1)[facility]: 22-17-3495Qogcsgxf cancer screenCervical cancer screenTriHealth [facility]hes[facility]: 54-97-7066Fidyvzday for malignant neoplasm of cervixOhioHealthStart: 11-01-2019 End: 82-92-6069Tyibzj Visit11/01/2019 Office Visit Infectious Diseases Dav Hartman MD [address] [facility]. [address] [place] [address] [phone] [facility], IncStart: 07-28-2019 End: 44-54-4460Sypsca Visit07/28/2019 Office Visit Infectious Dav Beaver MD [address] [place] [address] [phone] [facility].Start: 06-27-2019 End: 85-36-0956Fgduo Only06/27/2019 Nurse Only Family [facility]lingtonStart: 82-81-3471Tfyxegugl vaccinationFlu vaccine (#1)[place], [place]Start: 00-53-5462Auzvmurpk vaccination givenSEQUENTIAL INFLUENZA VACCINE (Season Ended)[facility] HospitalStart: 45-10-4754Phllmuidn for malignant neoplasm of breastMemorial Health System [facility] Memorial HospitalStart: 84-91-1637Gfehacuft vaccinationINFLUENZA VACCINE (#1)[facility] Work Phone: Start: 03-23-2018 End: 03-46-7377XzzvpnfmdhKvrcXluvvl [facility] Women HealthStart: 2009 Screening for malignant neoplasm of cervixHPV (without or with Pap)[facility]ITALStart: 32-53-0802Tbxgwibye for malignant neoplasm of cervixPAP SMEAR [facility] Work Phone: Start: 36-39-3008Zzuijehbq B vaccine (1 of 3 - 19+ 3- dose series)Hepatitis B vaccine (1 of 3 - 19+ 3-dose series)[facility] CenterStart: 99-47-3241Dywgg diphtheria, tetanus and acellular pertussis (DTaP) vaccinationTDAP (ADULT)[facility] Work Phone: Start: 44-81-6547Ajqpkfdyx C screeningHepatitis C ScreeningMemorial Health System Mari[facility] Memorial HospitalStart: 38-31-2777Awhxwrz vaccinationTETANCity Hospital Work Phone: Start: 92-18-4290RVWZL-19 Vaccine (1)COVID-19 Vaccine (1)[facility] Work Phone: start: 38-55-8385EOJ screenHIV [facility] Pittsburghart: 18-48-1811GVD screeningHIV screenCincinnati Va Medical CenterStart: 34-13-4774NHM screeningHIV SCREENING [facility] Work Phone: Start: 93-77-5965UBTKL-19 Vaccine (1)COVID-19 Vaccine (1)[facility] [facility] Phone: start: 25-96-4084Hmvvspjvob MonitoringDepression MonitoringCincinnati Va Medical CenterStart: 46-31-1116Yqlzsrshzx screening using PHQ-9 (Patient Health Questionnaire 9) scoreOhHealthStart: 61-13-7373Qkokh screening for proteinUrine MicroalbuminCtioHealthStart: 00-87-5000Tlwpclehhkqc Vaccine: Ped or At-Risk (1 - PCV)Pneumococcal Vaccine: Ped or At-Risk (1 - PCV)[facility] HospitalStart: 99-93-4758EPZGL-19 Vaccine (1)COVID-19 Vaccine (1)[facility] CenterStart: 1982 History and physical examination, annual for [facility] Visit OregonHealthStart: 39-87-5735EJHFB-19 Vaccine (#1)COVID-19 Vaccine (#1)[facility]Start: 45-29-6884Rysxmyofc B vaccine (1 of 3 - 3-dose series) Hepatitis B vaccine (1 of 3 - 3-dose series)[facility]ITALStart: 28-91-2755Cutsskjuc for malignant neoplasm of colonMemorial Health System [facility] End: 92-69-2293UZYFC-19COVID-19 Lab Routine Suspected COVID-19 virus infection 1 Occurrences starting 02/13/2021 until 02/13/2021[facility] [employer] Work Phone: comment on above:1 Occurrences starting 02/13/2021 until 4162UIEOJ-42WYTIX-72 Lab Routine Suspected COVID-19 virus infection 02/13/2021 3:06 PM EDMem[facility] System BooknGo Work Phone: End: 96-85-8416WRRPZ-19 AmbulatoryCOVID-19 Ambulatory Lab Routine SOB (shortness of breath) 1 Occurrences starting 08/08/2020 until 08/08/2020[facility] [place], [place]Comment on above:1 Occurrences starting 08/08/2020 until 08/08/2020COVID-19 AmbulatoryCOVID-19 Ambulatory Lab Routine SOB (shortness of breath) 08/08/2020 4:02 PM [facility] [place] End: 29-61-0966Avotsyxrom [Mass/volume] in UrineCreatinine, Random Urine Lab Routine Once for 1 Occurrences starting 05/20/2021 until 05/20/2021[facility] HospitalRestalo Phone: comment on above:Once for 1 Occurrences starting 05/20/2021 until 05/20/2021reatinine [Mass/volume] in UrineCreatinine, Random Urine Lab Routine 05/20/2021 7:57 PM [facility] Phone: End: 74-89-8582Uxiyuit, UrineCulture, Urine Microbiology Routine Acute cystitis with hematuria 1 Occurrences starting 04/13/2021until 04/13/2021[facility] HospitalRestalo Phone: comdmik on above:1 Occurrences starting 04/13/2021 until 1Culture, UrineMemorial Health System Selby General HospitalRestalo Phone: End: 51-50-8180Qtudcki, UrineCulture, Urine Microbiology Routine Difficult or painful urination 1 Occurrences starting 05/27/2021 until 05/27/2021[facility] HospitalRestalo Phone: comuuen on above:1 Occurrences starting 05/27/2021 until 05/27/2021 End: 04-51-2431Ahutrlj, UrineCulture, Urine Microbiology Routine Acute cystitis with hematuria Recurrent UTI 1 Occurrences starting 06/11/2021 until 06/11/2021 [facility] Mamaherb Phone: comment on above:1 Occurrences starting 06/11/2021 until 06/11/2021 End: 78-46-2531Mppgahs, UrineCulture, Urine Microbiology Routine Frequent UTI Urinary urgency Urinary frequency 1 Occurrences starting 07/11/2021 until 07/11/2021[facility] HospitalRestalo Phone: Comment on above:1 Occurrences starting 07/11/2021 until 07/11/2021 End: 60-71-2082Iasaogy, UrineCulture, Urine Microbiology Routine Frequent UTI Urinary urgency Urinary frequency 1 Occurrences starting 08/01/2021 until 08/01/2021[facility] HospitalAria Networks Work Phone: comment on above:1 Occurrences starting 08/01/2021 until 08/01/2021 End: 29-61-6497Ibksmpx, UrineCulture, Urine Microbiology Routine Acute cystitis with hematuria 1 Occurrences starting 04/28/2022until 04/28/2022ON [employer] Work Phone: comment on above:1 Occurrences starting 04/28/2022 until 04/28/2022 End: 07-65-1162Xqcqxgz, UrineBON ActionPlanner Phone: comment on above:1 Occurrences starting 02/05/2023 until 02/05/2023 End: 61-04-5052Oliwlsu, Wound (with Gram Stain)Bon Cel-Fi by NextivityComment on above:One Time for 1 Occurrences starting 04/04/2025 until 04/04/2025 End: 25-39-3340FGO Breast - bilateral screeningBon Cel-Fi by NextivityComment on above:1 Occurrences starting 02/15/2025 until 02/15/2025 End: 61-89-6820Ghozdtbxot A1c/Hemoglobin.total in BloodBON [employer] Work Phone: comment on above:1 Occurrences starting 04/12/2022 until 04/12/2022 End: 11-74-9737Ggexgchyio A1c/Hemoglobin.total in BloodSignStorey Phone: Comment on above:Once for 1 Occurrences starting 02/05/2023 until 02/05/2023 End: 46-75-2099Bzbc Sleep StudyH[facility]ale [facility] Routine One Time for 1 Occurrences starting 08/29/2019 until 08/29/2019[facility] [place] Comment on above:One Time for 1 Occurrences starting 08/29/2019 until 08/29/2019 End: 27-57-2062Vzxmkxnnmhdqs Acid, SerumMethylmalonic Acid, Serum Lab Routine Once for 1 Occurrences starting 09/24/2019 until 09/24/2019[facility] HospitalRestalo Phone: comaovn on above:Once for 1 Occurrences starting 09/24/2019 until 09/24/2019Methylmalonic Acid, SerumMethylmalonic Acid, Serum Lab Routine 09/24/2019 9:33 AM Sc[employer] Phone: End: 54-83-9281Jpogngx Ab [Titer] in Serum by ImmunofluorescenceANA Lab Routine Once for 1 Occurrences starting 09/24/2019 until 09/24/2019[facility] HospitalRestalo Phone: comndwi on above:Once for 1 Occurrences starting 09/24/2019 until 09/24/2019Nuclear Ab [Titer] in Serum by ImmunofluorescenceANA Lab Routine 09/24/2019 9:33 AM [employer] Phone: End: 30-97-9208Lojvlrv, urine, randomProtein, urine, random Lab Routine Once for 1 Occurrences starting 05/20/2021 until 05/20/2021[facility] HospitalRestalo Phone: cominow on above:Once for 1 Occurrences starting 05/20/2021 until 1Protein, urine, randomProtein, urine, random Lab Routine 05/20/2021 7:57 PM [employer] Phone: End: 79-51-3479Wmgssaebcbvod RateSedimentation Rate Lab Routine MRSA (methicillin resistant Staphylococcus aureus) septicemia ([facility]) 1 Occurrences starting 12/14/2019 until 12/14/2019[facility] HospitaluserADgents PRComment on above:1 Occurrences starting 12/14/2019 until 12/14/2019Sedimentation RateSedimentation Rate Lab Routine MRSA (methicillin resistant Staphylococcus aureus) septicemia (HCC) 12/14/2019 12:39 PM [place] End: 77-99-4225Ykyhvzgu syndrome-A extractable nuclear antibodySjogrens syndrome-A extractable nuclear antibody Lab Routine Once for 1 Occurrences starting 09/24/2019 until 09/24/2019Box Phone: comment on above:Once for 1 Occurrences starting 09/24/2019 until 09/24/2019Sjogrens syndrome-A extractable nuclear antibody Sjogrens syndrome-A extractable nuclear antibody Lab Routine 09/24/2019 9:33 AM [employer] Phone: End: 14-73-6546Hgdchbtw syndrome-B extractable nuclear antibodySjogrens syndrome-B extractable nuclear antibody Lab Routine Once for 1 Occurrences starting 09/24/2019 until 09/24/2019Box Phone: comment on above:Once for 1 Occurrences starting 09/24/2019 until 09/24/2019Sjogrens syndrome-B extractable nuclear antibody Sjogrens syndrome-B extractable nuclear antibody Lab Routine 09/24/2019 9:33 AM [employer] Phone: End: 04-48-0838Banie Study with PAP TitrationSleep Study with PAP Titration Sleep Center Routine One Time for 1 Occurrences starting 09/12/2019 until 09/12/2019Box Phone: comment on above:One Time for 1 Occurrences starting 09/12/2019 until 09/12/2019 End: 09-62-1733Zofblul E4Skcengf B6 Lab Routine Once for 1 Occurrences starting 09/24/2019 until 09/24/2019Box Phone: comizfa on above:Once for 1 Occurrences starting 09/24/2019 until 09/24/2019Vitamin G1Hfmqdcg B6 Lab Routine 09/24/2019 9:33 AM [employer] Phone: XR Cervical spine 4 or 5 ViewsXR cervical spine complete 4 to 5 views Imaging Routine Cervical paraspinal muscle spasm 512:45 PM EDTNOOH [facility] Immunizations Immunization DateImmunizationNotesCare DjvnxyqyBxsjccwf30-29-4433bcfvkkd toxoid, reduced diphtheria toxoid, and acellular pertussis vaccine, adsorbedBilly [facility] [place] Payers DatePayer CategoryPayerPolicy [id number] Care HMO (unspecified)[facility] HMO/CHOICE PLUS/DULCE/DULCE PLUS [id number] Health Insurance 1.2.840.598749.1.13.693.2.7.9.974777.556879.88754-64-7793Rqmzsai Health [id number] 1.2.840.448220.1.13.239.2.7.3.380507.63038-81-2327Qrmv-ekv ke19e6j5-141q-2315-0304-4096j4b7o36189-38-3387Cyvt Cross Blue Shield (Indemnity or Managed Care) - Out of StateBCBS OUT OF STATE [facility] ADA – ADA 1.2.840.932461.1.13.385.2.7.9.036629.335.15759-43-1937Lfoszju65-61-0496Mzbedor HHC78713087483193-79-1460Ihbkcqfbqukysrfnqrwdrk 1.2.840.521821.1.13.239.2.7.3.406647.315 [id number] 2.16.840.1.821695.3.249.13 2014MedicaidCARESOURCEMedicaidCARESOURCE MANAGED MEDICAID CARESOURCE MEDICAID xxxxxxxxxxx 2014-Presentxxxxxxxxxxx 1.2.840.857957.1.13.385.2.7.3.555[id number] 2.840.1.490334.3.57[id number] 2.0.1.496416.3.57[id number] 2.0.1.031901.3.579.2.09698-65-7846Usvoxss6852771 2.0.1.511017.3.579.[id number] 2.16840.1.182558.3.579.2.29200-78-7999Kehegmf00522564 2.0.1.404022.3.579.2.40878-00-6880Dsekcsd92400190 2.16840.1.586689.3.579.2.63586-79-2021Ohfcfcx86249093 2.16840.1.030689.3.57[id number] 2.16840.1.702435.3.579.2.74260-81-9002Dykghpf2856405 2.840.1.620641.3.579.2.61686-91-4522Kpgzlcj7333375 2.0.1.158131.3.579.2.22930-05-1414Txbviye5440249 2..1.997501.3.579.2.89638-60-8571Kwtuupj962006760 2.0.1.800649.3.579.2.40440-07-2590Nwdlzld311751373 2..1.544154.3.579.2.95782-95-7413Vnyjcgj55249528 2..1.199783.3.579.2.44538-11-3741Qoqyckr91188941 2..1.656864.3.579.2.573144-11-2484Oiossig02350199 2..1.525374.3.579.2.467298-24-4774Pafgnor02600812 2..1.531294.3.579.2.095402-44-0690Blugsfk19245240 2..1.106626.3.579.2.457754-19-9585Rhdszug10255345 2..1.685670.3.579.2.059385-32-2693Prrwqff50885746 2..1.471261.3.579.2.525233-44-5712Qxtvryq7586168 2..1.667825.3.579.2.280086-93-2877Lxgwzmu6432125 2..1.618174.3.579.2.369260-00-9530Vxrehai1937698 2..1.257359.3.579.2.081733-96-3654Rjvcqvd9393863 2.0.1.576019.3.579.2.959338-93-9798Oruaimg3495748 2.16.840.1.867884.3.579.2.502389-92-9375Reoidww71173251 2.16.840.1.073853.3.579.2.79055-02-2363Taaokug38856736 2.840.1.015077.3.579.2.17862-51-0520Kqeqbko86002897 2.16.840.1.352122.3.579.2.98436-09-3097Yovqrjy58986883 2.840.1.638042.3.579.2.51440-23-2520Qlpgpde18612226 2.840.1.672755.3.579.2.98401-43-8972Bruript51178722 2.0.1.905911.3.579.2.44086-37-5464Ketnvgu45572291 2.16.840.1.438291.3.579.2.24353-54-4975Xcrzkkq00682592 2.840.1.277305.3.579.2.03647-90-0255Kdmmpae27287361 2.840.1.893971.3.579.2.78903-53-0349ErxjgkrZNK011325934075 1.2.840.929368.1.13.239.2.7.3.550827.716Rghgrtw315Jgzpada95864180 2.840.1.533635.3.579.2.531 Social History DateTypeDetailFacilityStart: 05-01-2015 End: 79-37-3254Qkopfly smoking status NHISNever smokerMemorial Health System [facility] Work Phone: Start: 74-67-8340Nci Assigned At BirthNot on file [facility] Work Phone: Start: 05-27-2019 End: 22-05-5449Qykgyfa intakeNoC[facility]: 12-13-2019 End: 46-38-8079Gxhbqnn intakeCurrent non-drinker of alcohol (finding)[facility], [facility]: 12-09-2019 End: 61-41-9091Nqegzte SDOH Bcyknhxbq0RnumjCleveland Clinic Hill[facility], [facility]: 12-09-2019 End: 00-64-0367Okeusst SDOH Food Bnocq7SfnxnC[facility] Clinic [facility], [facility]: 12-09-2019 History SDOH Transport Elh1AzlvsC[facility] Clinic [facility], [facility]: 05-11-2020 End: 37-99-4731Zqlsmqe use and exposureNever usedTriHealth Bethesda Butler Hospital: 10-30-2021 End: 87-96-6262Vzfndkkp to SARS-CoV-2 (event)Not sureTriHealth Bethesda Butler Hospital: 06-16-6457Bhd Assigned At [facility]ulltart: 97-62-5682Wvofivr SDOH Dginzmfty6ROQ [facility] [employer] Work Phone: start: 01-06-2023 End: 03-43-8468Mympqup of Social functionOhioHealthHow hard is it for you to pay for the very basics like food, housing, medical care, and heatingNot very hard MAINtag [facility] HOSPITALPatient Health Questionnaire 9 item (PHQ-9) total score [Reported]0BON GymRealm(I/We) worried whether (my/our) food would run out before (I/we) got money to buy more.Never trueBON GymRealmAt any time in the past 12 months, were you homeless or living in long term [including now]?NoBON Soundvamp [facility]ITALStart: 65-49-2784Oxrymk identity Identifies as female gender (finding)MAINtag [facility]ITALStart: 10-09-2020 Sexual orientationHeterosexual (finding)MAINtag HEALTHHow hard is it for you to pay for the very basics like food, housing, medical care, and heating Somewhat hardBON [employer]vamp HEALTHStart: 06-10-2024 End: 21-36-1018Eruhztktp beverage intakeLifetime non-drinker (finding)[facility] HealthcareStart: 96-58-9592Ufzdnaz CommentCaffeine Intake: Yes, [facility] HealthcareStart: 89-76-2772JdaDlvnch (finding)[facility] HospitalProbki Iz okna [facility] HospitalHow often to you have a drink containing alcohol?NeverSentara Obici HospitalStart: 04-20-2025 End: 98-67-0468Vavflqjzm beverage intakeEx-drinker (finding)[facility] Healthcare Start: 41-14-7665Euskazy Comment1-2 times a yearBRIGHAM CITY COMMUNITY HOSPITAL HealthcareNEGATED: Highlighted rowStart: NINFHistory of tobacco usePassive [facility] Functional Status DateAssessmentResultFaNaval Medical Center [facility]sm[facility] Clinical Notes 12-23-2021 to 05-24-2025 Note Date & HmjdSsmbWlezmiyg80-08-6046 History of Present illness Narrative* Jennie Van [...] reflexes: Goyo's absent. Ankle clonus absent. Coordination Xdthcn-yh-eilg, rapid alternating movements and emki-qe-zbyq normal bilaterally without dysmetria. Gait Casual gait: [...] Continue current management plan documented in this encounterUniversity of Missouri Children's HospitalJpfumelipg97-38-5905 Telephone encounter Note* Telephone Encounter - Paresh Cary - 05/23/2025 9:36 AM EDT Patient same day canceled due to her foot being in a boot and cannot drive by herself. [facility] Wfgayikkqk27-16-0313 Miscellaneous Notes* Telephone Encounter - Paresh Luis Daniel - 05/23/2025 9:36 AM EDT Patient same day canceled due to her foot being in a boot and cannot drive by herself. documented in this encounterUniversity of Missouri Children's HospitalJhgqcubtxm85-98-6716 History of Present illness Narrative* Robbin Sánchez, [...] next visit with xra documented in this encounterUniversity of Missouri Children's HospitalNxcdyjnfdl95-44-1896 Evaluation note* Diagnosis Chronic renal impairment, stage 3a (HCC)- Primary Depression with anxiety Dysthymic disorder Gastroesophageal reflux disease without esophagitis Esophageal reflux Vitamin D deficiency Unspecified vitamin D deficiency Mixed hyperlipidemia BCUK on CPAP Obstructive sleep apnea (adult) (pediatric) Restless legs Restless legs syndrome (RLS) Hyperglycemia Other abnormal glucose Hyperglycemia Other abnormal glucose Mixed hyperlipidemia Chronic renal impairment, stage 3a (HCC) documented in this encounter [facility]07-10-2025 Evaluation note* Diagnosis Chronic renal impairment, stage 3a (HCC)- Primary Depression with anxiety Dysthymic disorder Gastroesophageal reflux disease without esophagitis Esophageal reflux Vitamin D deficiency Unspecified vitamin D deficiency Mixed hyperlipidemia BUCK on CPAP Obstructive sleep apnea (adult) (pediatric) Restless legs Restless legs syndrome (RLS) Hyperglycemia Other abnormal glucose Pain in right foot Pain in limb documented in this encounter [facility]07-03-2025 History of Present illness Narrative* Robbin Sánchez, INDER - 04/06/2025 4:30 PM EDT Celina Gaspar is a 44 y.o. female presents with chief complaint of Foot Ulcer (RT toe 2 ulcer) HPI: HPI Pt has ulcer on RT toe 2 for about 2 wks. She went to [facility] ER on 04-04-25, xrays, culture and [...] toe or midfoot but also Charcot MRI [facility] 04-11-25 11:30 AM, arrive at 11:00 AM. Pt notified. 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 Lab Frequency Next Occurrence Therapeutic injection carpal [...] ? [address] ? [place], [place] [address] ? ? fax Neurology ? Clinical Neurophysiology ? Epilepsy ? Sleep Disorders ? Clinical Informatics documented in this encounterUniversity of Missouri Children's [id number] Evaluation note* Diagnosis Chronic renal impairment, stage [...] Other screening mammogram documented in this encounter [facility]05-12-2025 History of Present illness Narrative* Trace [...] Depression: Not at risk (11/15/2024) Received from [facility] PHQ-2 PHQ-9 Total Score: 0 [...] reflexes: Goyo's absent. Ankle clonus absent. Coordination Ahrubk-hb-eqeh, rapid alternating movements and chea-wu-zvqx normal bilaterally without dysmetria. Gait Normal casual, toe, heel and tandem gait. Romberg is absent. 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 She continues to have significant discomfort in her feet to interrupt her sleep. This is likely worsened by Gehjnqu-Vfkpo-Cytuy for which she had surgery in February [...] to [facility] in [place]. We will get the original sleep study from [facility] for review. She is following with Dr. Block for sleep medicine. 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 [address] ? [place], [place] [address] ? ? fax Neurology ? Clinical Neurophysiology ? Epilepsy ? Sleep Disorders ? Clinical Informatics documented in this encounterUniversity of Missouri Children's HospitalHhtdzdkuim00-13-7797 Telephone encounter Note* Telephone Encounter - Janel Allen NP - 11/02/2024 9:16 PM EST Pharmacy sends medication clarification for nortriptyline as there are two directions on one received. Per ONUR Gunderson plan increase nortriptyline 50 mg 2 daily/bedtime total of 100 mg. [facility] Children's HospitalUeblurradq65-10-4423 Miscellaneous Notes* Telephone Encounter - Janel Allen NP - 11/02/2024 9:16 PM EST Pharmacy sends medication clarification for nortriptyline as there are two directions on one received. Per ONUR Gunderson plan increase nortriptyline 50 mg 2 daily/bedtime total of 100 mg. documented in this encounterUniversity of Missouri Children's HospitalCbwplaaspf67-73-[address] [place] [address] (11) [facility] [address] [place] [address] MEDICAL OFFICE [facility] [address] Dept: [phone] Loc: [phone] MD Celina Browne 44 y.o. female Patient [...] Resource Strain: Medium Risk (05/08/2024) Received from [facility] Overall Financial Resource Strain (CARDIA) Difficulty of Paying Living Expenses: Somewhat hard Food Insecurity: No Food Insecurity (05/08/2024) Received from [facility] Hunger Vital Sign Worried About Running Out of Food in the Last Year: Never true Ran Out of Food in the Last Year: Never true Transportation Needs: Unknown (05/08/2024) Received from [facility] PRAPARE - Transportation Lack of Transportation (Non-Medical): No Housing Stability: Unknown (05/08/2024) Received from [facility] Housing Stability Vital Sign Unstable Housing [...] of submandibular glands, clear salivary flow from Pittsburg's ducts, no stones of Pitts[place]'s ducts Temporomandibular Joint: no crepitus with motion, no tenderness on palpation, no mayo (more content not included)...[facility] [id number] History of Present illness Narrative* Dimas Adair MD - 10/11/2024 10:05 AM EST [facility] [address] (11) [facility] [address] MEDICAL OFFICE [facility] [address] Dept: [phone] Loc: [phone] MD Celina Browne 44 y.o. female Patient [...] Resource Strain: Medium Risk (05/08/2024) Received from [facility] Overall Financial Resource Strain (CARDIA) Difficulty of Paying Living Expenses: Somewhat hard Food Insecurity: No Food Insecurity (05/08/2024) Received from [facility] Hunger Vital Sign Worried About Running Out of Food in the Last Year: Never true Ran Out of Food in the Last Year: Never true Transportation Needs: Unknown (05/08/2024) Received from [facility] PRAPARE - Transportation Lack of Transportation (Non-Medical): No Housing Stability: Unknown (05/08/2024) Received from [facility] Housing Stability Vital Sign Unstable Housing [...] subma ndibular glands, clear salivary flow from Pittsburg's ducts, no stones of Pittsburg's ducts Temporomandibular Joint: no crepitus with motion, [...] Hematological: Negative. Psychiatric/Behavioral: Negative. documented in this [id number] Telephone encounter Note* Telephone Encounter - Gwen [place] - 09/14/2024 2:18 PM EST Voicemail Received: Our numbers [phone] actually have a question regarding a prescription that was prescribed today, If someone could please call me back. Thank you. Rosa Isela. [facility] Children's HospitalXzxcsvzqyi84-18-7465 Miscellaneous Notes* Telephone Encounter - Gwen Meng - 09/14/2024 2:18 PM EST Voicemail Received: Our numbers [phone] actually have a question regarding a prescription that was prescribed today, If someone could please call me back. Thank you. Rosa Isela. documented in this encounterUniversity of Missouri Children's HospitalHlqfsiblcc20-18-0609 Miscellaneous Notes* Telephone Encounter - My Johnson - 08/11/2024 12:03 PM EST Patient called and requested refill of Lyrica to be sent to [facility] in [place]. documented in this encounterUniversity of Missouri Children's HospitalVdlckcpwdn86-04-6531 Telephone encounter Note* Telephone Encounter - My Johnson - 08/11/2024 12:03 PM EST Patient called and requested refill of Lyrica to be sent to [facility] in [place]. [facility] Children's HospitalKzidqvfbmp84-04-2599 History of Present illness Narrative* Tequila Obando [...] Grandfather Depression: At risk (01/28/2024) Received from [facility] PHQ-2 PHQ-9 Total Score: 6 REVIEW [...] reflexes: Goyo's absent. Ankle clonus absent. Coordination Rlwkva-yr-dzwl, rapid alternating movements and jmgr-hh-ujeg normal bilaterally without dysmetria. Gait Normal casual, [...] Follow up 3 months. documented in this encounterUniversity of Missouri Children's HospitalLfxrkxlffg02-92-0793 History of Present illness Narrative* Cheryl Ginger, [...] risks of stroke, OR, and sudden with BUCK, along with the [...] to clinic: 3-6 months documented in this encounterUniversity of Missouri Children's HospitalDhhqntusgs53-23-4914 History of Present illness Narrative* MASSIMO Shook [...] 2022. Shefollows with an outside provider in [place] and was immobilized for an extended period [...] Foot & Ankle Surgery documented in this [id number] NotePROCEDURE: XR ANKLE LT MIN 3 V, [...] Electronically authenticated by: PIPER MERCEDES Date: 2023-01-29 07:05[facility]04-27-2023 NotePROCEDURE: XR ANKLE LT MIN [...] Electronically authenticated by: PIPER MERCEDES Date: 2023-01-29 07:05[facility]10-05-2022 History of Present illness Narrative* [...] BMR: 1573 calories Est. total calorie needs: ~0956-5275 Lab Results Component Value Date/Time TRIG 460 [...] bread Supper: pork chop or chicken, homemade polish fries, mashed, or baked potato with broccoli [...] session duration: 55 minutes. [facility] Phone: [phone]) 826-447705-04-2022 History of Present illness Narrative* Christel Donohue, PT - 02/05/2022 9:45 AM EDT [facility] Date: 02/05/2022 Patient Name: Celina Gaspar : 1980 Pt No Showed Appt- Follow up call, left message on voicemail that patient discharged, but to call if has questions or concerns. Christel Donohue, PT Date: 02/05/2022 [facility] Phone: [phone]) 325-652905-04-2022 Hospital course Narrative* Christel Donohue, PT - 02/05/2022 9:45 AM EDT Images from the original note were not included. [facility] Outpatient Physical Therapy Discharge Summary Patient: Celina Gaspar : 1980 Referring Practitioner: Liliane Sawyer APRN, RESEARCH NEUROPSYCHOLOGIST Referral Date : 12/19/21 Diagnosis: Lumbar radiculopathy Treatment Diagnosis: Back Pain Onset Date: 12/19/21 (Referral) PT Insurance Information: [facility] Total # of Visits Approved: [...] Donohue, PT Date: 02/05/2022 documented in this [facility] [employer] Phone: 1(643) 751-518305-02-2022 History of Present illness Narrative* Jerica Melgar - 02/03/2022 10:30 AM EDT [facility] Date: 02/03/2022 Patient Name: Celina Gaspar : 1980 Pt Cancelled Appt due to no reason for cancel. Jerica Melgar Date: 02/03/[address] [facility] Phone: [phone]) 644-464204-27-2022 History of Present illness Narrative* Beverly Rangel, ACCOUNT REPRESENTATIVE - 01/29/2022 9:00 AM EDT Images from the original note were not included. [facility] Therapy Daily Note Date: 01/29/2022 Patient Name: eClina Gaspar : 1980 (41 y.o.) Referring Practitioner: [...] Increase trunk ROM B rotation WFL-Not Met Longterm Goals - Time Frame for terminal makeup operator goals : 10 Longterm Goals Time Frame for terminal makeup operator goals : 10 terminal makeup operator goal 1: Decrease pain low back 2/10 at worst x3 days for completing normal activities terminal makeup operator goal 2: Patient to report 50% decrease in radicular symptoms L LE Post Treatment Pain: 5/10 Time In: 0859 Time Out: 0947 Timed Code Treatment Minutes: 48 Minutes Total Treatment Time: 48 Minutes Beverly Rangel PTA Date: 01/29/[address] [facility] Work Phone: 1(680) 545-832404-25-2022 History of Present illness Narrative* Christel Donohue, PT - 01/27/2022 3:45 PM EDT Images from the original note were not included. [facility] Therapy Daily Note Date: [...] Increase trunk ROM B rotation WFL-Not Met Brown Stock Washer Goals - Time Frame for terminal makeup operator goals : 10 Longterm Goals Time Frame for longterm goals : 10 terminal makeup operator goal 1: Decrease pain low back 2/10 at worst x3 days for completing normal activities terminal makeup operator goal 2: Patient to report 50% decrease in radicular symptoms L LE Post Treatment Pain: 4/10 Time In: 15:50 Time Out : 16:19 Timed Code Treatment Minutes: 34 Minutes Total Treatment Time: 34 Minutes Christel Donohue, PT Date: 01/27/2022 documented in this [facility] Work Phone: 1([phone]) 114-477304-22-2022 History of Present illness Narrative* Vanessa RhodesCharitoRayarieladavid, PT - 01/24/2022 9:45 AM EDT Images from the original note were not included. [facility] Therapy Daily Note Date: [...] 4: Increase trunk ROM B rotation WFL Longterm Goals - Time Frame for terminal makeup operator goals : 10 Brown Stock Washer Goals Time Frame for longterm goals : 10 terminal makeup operator goal 1: Decrease pain low back 2/10 at worst x3 days for completing normal activities terminal makeup operator goal 2: Patient to report 50% decrease in radicular symptoms L LE Post Treatment Pain: 5/10 Time In: 0952 Time Out: 1030 Timed Code Treatment Minutes: 38 Minutes Total Treatment Time: 38 Minutes Vanessa Garcia, PT Date: 01/24/2022 documented in this [facility] Phone: [phone]) [phone] History of Present illness Narrative* Beverly Gutiérrez Rangel, ACCOUNT REPRESENTATIVE - 01/22/2022 4:45 PM EDT [facility] Date: 01/22/2022 Patient Name: Celina Gaspar : 1980 Patient did not show up for her appointment. Message left on answering machine with a reminder of her next appointment on Thursday. Beverly Rangel, ACCOUNT REPRESENTATIVE Date: 01/22/2022 documented in this [facility] [employer] Phone: [phone]) [phone] History of Present illness Narrative* Beverly Rangel, ACCOUNT REPRESENTATIVE - 01/17/2022 10:30 AM EDT Images from the original note were not included. [facility] Therapy Daily Note Date: 01/17/2022 Patient Name: Celina Gaspar : 1980 (41 y.o.) Referring Practitioner: Liliane Sawyer APRN, RESEARCH NEUROPSYCHOLOGIST Referral Date : 12/19/21 Diagnosis: Lumbar radiculopathy [...] 4: Increase trunk ROM B rotation WFL Brown Stock Washer Goals - Time Frame for terminal makeup operator goals : 10 longterm goal 1: Decrease pain low back 2/10 at worst x3 days for completing normal activities terminal makeup operator goal 2: Patient to report 50% decrease in radicular symptoms L LE Post Treatment Pain: 5/10 Time In: 1037 Time Out: 1107 Timed Code Treatment Minutes: 30 Minutes Total Treatment Time: 30 Minutes Beverly Rangel PTA Date: 01/17/2022 documented in this encounterMemorial [facility] HospitalA[facility] Work Phone: 1(624) 304-462004-11-2022 History of Present illness Narrative* ISAIAH Metzger - 01/13/2022 3:15 PM EDT [facility] Date: 01/13/2022 Patient Name: Celina Phand : 1980 Pt Cancelled Appt due to no reason given. PRESTON Metzger/Matthew Date: 01/13/2022 documented in this encounterMerAria Networks Work Phone: 1([phone]) 549-645704-01-2022 History of Present illness Narrative* Beverly Rangel PTA - 01/03/2022 9:45 AM EDT Images from the original note were not included. [facility] Out[facility] Physical Therapy Daily Note Date: [...] 4: Increase trunk ROM B rotation WFL Brown Stock Washer Goals - Time Frame for longterm goals : 10 terminal makeup operator goal 1: Decrease pain low back 2/10 at worst x3 days for completing normal activities longterm goal 2: Patient to report 50% decrease in radicular symptoms L LE Post Treatment Pain: 5/10 Time In: 0948 Time Out: 1028 Timed Code Treatment Minutes: 40 Minutes Total Treatment Time: 40 Minutes Beverly Rangel PTA Date: 01/03/[address] [facility] Work Phone: 1(331) 469-289703-29-2022 History of Present illness Narrative* Cheryl Herman OT - 12/31/2021 9:30 AM EDT Images from the original note were not included. [facility] Out[facility] Occupational Therapy Daily Note Date: [...] Time Frame for Short term goals: STG=LTG Brown Stock Washer Goals Time Frame for terminal makeup operator goals : 12 visits (01/24/2022) terminal makeup operator goal 1: pt to be indepenent in HEP-MET longterm goal 2: Pt to demonstrate R wrist flexion to 65 degrees or more in order to engage in daily tasks-MET terminal makeup operator goal 3: Pt to demonstrate R wrist extension to 60 degrees or more in order to engage in daily tasks-MET terminal makeup operator goal 4: Pt to be educated on carpal tunnel do's & dont's in order to prevent further repetitive injury to wrist-MET Timed Code Treatment Minutes: 30 Minutes Time In: 915 Time Out: 945 Timed Coded Minutes: 30 Total Treatment Time: 30 THERESA Houser, OTR/L Date: 12/31/[address] [facility] Work Phone: 1(232) [phone] Hospital course Narrative* Cheryl Herman, OT - 12/31/2021 9:30 AM EDT Images from the original note were not included. 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 Therapist provided pt with handout on Carpal Tunnel Dos & Dont's to avoid re-injury. Prognosis: Fair Goals Short Term Goals Time Frame for Short term goals: STG=LTG Brown Stock Washer Goals Time Frame for terminal makeup operator goals : 12 visits (01/24/2022) longterm goal 1: pt to be indepenent in HEP-MET terminal makeup operator goal 2: Pt to demonstrate R wrist flexion to 65 degrees or more in order to engage in daily tasks-MET terminal makeup operator goal 3: Pt to demonstrate R [...] Houser, OTR/L Date: 12/31/[address] [facility] Phone: 1([phone]) 321-940303-29-2022 History of Present illness Narrative* Christel Donohue, PT - 12/31/2021 8:30 AM EDT Images from the original note were not included. [facility] Evaluation Date: 12/31/2021 [...] rotation WFL longterm goals Time Frame for terminal makeup operator goals : 10 longterm goal 1: Decrease [...] Donohue, PT Date: 12/31/2021 documented in this [facility] [employer] Work Phone: 1(321) 432-605503-28-2022 History of Present illness Narrative* Cheryl Herman OT - 12/30/2021 8:30 AM EDT Images from the original note were not included. [facility] Occupational Therapy Daily Note Date: [...] Time Frame for Short term goals: STG=LTG Brown Stock Washer Goals Time Frame for terminal makeup operator goals : 12 visits (01/24/2022) longterm goal 1: pt to be indepenent in HEP-MET longterm goal 2: Pt to demonstrate R wrist flexion to 65 degrees or more in order to engage in daily tasks-MET terminal makeup operator goal 3: Pt to demonstrate R [...] Houser, OTR/L Date: 12/30/2021 documented in this encounterMerAria Networks Work Phone: 1([phone]) 750-426203-21-2022 History of Present illness Narrative* Cheryl Castro Batsheva, OT - 12/23/2021 8:30 AM EDT Images from the original note were not included. [facility] Occupational Therapy Evaluation Date: 12/23/2021 [...] completing these mvmts Left Hand Strength - Infant Lead Teacher (lbs) Handle Setting 2: 54#, 50#, 53# (52.3# ave) Left Hand Strength - Pinch (lbs) Lateral: 13.5# Tip: 8# Palmar 3 point: 11# Right Hand Strength - Infant Lead Teacher (lbs) Handle Setting 2: 53#, 54#, 53# [...] Frame for Short term goals: STG=LTG terminal makeup operator goals Time Frame for longterm goals : 12 visits (01/24/2022) terminal makeup operator goal 1: pt to be indepenent in HEP longterm goal 2: Pt to demonstrate R wrist flexion to 65 degrees or more in order to engage in daily tasks longterm goal 3: Pt to demonstrate R wrist [...] THERESA Houser, OTR/Matthew 12/23/2021 documented in this encounterMem[facility] HospitalRest[facility] Phone: [email or web address] note* Diagnosis Viral illness Unspecified viral infection, in conditions classified elsewhere and of unspecified site documented [facility] encounter [facility] Phone: evaljgkxvx note* Diagnosis Suspected COVID-19 virus infection documented in this encounter [facility] Phone: [email or web address] note* Diagnosis Acute cystitis with hematuria Acute cystitis documented in this encounter [facility] Phone: evalnwbfwu note* Diagnosis Difficult or painful urination Dysuria documented in this encounter [facility] Phone: evalfjlynb note* Diagnosis Acute cystitis with hematuria Acute cystitis Recurrent UTI Urinary tract infection, site not specified documented in this encounter [facility] Phone: [email or web address] note* Diagnosis Frequent UTI Urinary tract infection, site not specified Urinary urgency Urgency of urination Urinary frequency documented in this encounter [facility] Phone: evalftzxdp note* Diagnosis Frequent UTI Urinary tract infection, site not specified Urinary urgency Urgency of urination Urinary frequency documented in this encounter [facility] Phone: evalilnehd note* Diagnosis MRSA (methicillin resistant Staphylococcus aureus) septicemia (HCC) Methicillin resistant staphylococcus aureus septicemia documented in this encounter [facility] HospitalJamalonK[facility], [facility] noteNo assessment information availableDayton Va Medical Center Work Phone: Evaluation note* Diagnosis Fatigue, unspecified type Encounter for screening for HIV Mixed hyperlipidemia Hyperglycemia Other abnormal glucose Chronic renal impairment, stage 3b (HCC) documented in this encounter [facility] [employer] Phone: [email or web address] note* Diagnosis Acute cystitis with hematuria Acute cystitis documented in this encounter [employer] Phone: evaluation note* Diagnosis Neck mass Swelling, mass, or lump in head and neck documented in this encounter [employer] Phone: evaluation note* Diagnosis Pain of foot, unspecified laterality Closed nondisplaced fracture of second metatarsal bone of left foot, initial encounter Closed nondisplaced fracture of lateral cuneiform of left foot, initial encounter documented in this encounter [employer] Phone: evaluation note* Diagnosis Foreign body (FB) in soft tissue Residual foreign body in soft tissue documented in this encounter [employer] Phone: evaluation note* Diagnosis Pelvic pressure in female Other specified symptom associated with female genital organs documented in this encounter [employer] Phone: evalbbnawe note* Diagnosis Charcot arthropathy of midfoot- Primary Gastrocnemius equinus, unspecified laterality Foot pain, left Pain in soft tissues of limb [facility] Diagnosis Mixed hyperlipidemia documented in this encounter [employer] note* Diagnosis Idiopathic progressive polyneuropathy Non-seasonal allergic rhinitis due to pollen documented in this encounter [facility] Healthcare[facility] note* Diagnosis Thyroid nodule Nontoxic uninodular goiter documented in this encounter [employer] note* Diagnosis Thyroid nodule- Primary Nontoxic uninodular goiter [facility]* Diagnosis BUCK on CPAP- Primary 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 (CMS/HCC) Restless legs Restless legs syndrome (RLS) Bilateral carpal tunnel syndrome Carpal tunnel syndrome documented in this encounter [facility]* Diagnosis Idiopathic progressive polyneuropathy- Primary Bilateral carpal tunnel syndrome Carpal tunnel syndrome Restless legs Restless legs syndrome (RLS) Intractable 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 (CMS/HCC) documented in this encounter [facility] HealthcareEvaluation note* Diagnosis BUCK (obstructive sleep apnea) Obstructive sleep apnea (adult) (pediatric) Hypersomnia Hypersomnia, unspecified Snoring Other dyspnea and respiratory abnormality Class 2 obesity due to excess calories with body mass index (BMI) of 38.0 to 38.9 in adult, unspecified whether serious comorbidity present documented in this encounter [facility] HealthcareEvaluation note* Diagnosis Idiopathic progressive polyneuropathy Non-seasonal allergic rhinitis due to pollen documented in this encounter [facility] HealthcareEvaluation note* Diagnosis Thyroid nodule- Primary Nontoxic uninodular goiter Lipoma of neck [facility]* Diagnosis 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 (CMS/HCC) documented in this encounter [facility] HealthcareEvaluation note* Diagnosis BUCK on CPAP- Primary Idiopathic progressive polyneuropathy Restless legs Restless legs syndrome (RLS) Intractable 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 (CMS/HCC) documented in this encounter [facility] HealthcareEvaluation note* Diagnosis Pre-diabetes Other abnormal glucose Mixed hyperlipidemia [facility] BUCK (obstructive sleep apnea)- Primary Obstructive sleep apnea (adult) (pediatric) BUCK on CPAP Claustrophobia (CMS/HCC) Other isolated or specific phobias documented in this encounter [facility] HealthcareEvaluation note* Diagnosis BUCK (obstructive sleep [...] apnea (adult) (pediatric) documented in this encounter [facility] HealthcareEvaluation note* Diagnosis BUCK (obstructive sleep apnea)- Primary Obstructive sleep apnea (adult) (pediatric) BUCK on CPAP Claustrophobia Other isolated or specific phobias BUCK (obstructive sleep apnea)- Primary Obstructive sleep apnea (adult) (pediatric) Claustrophobia Other isolated or specific phobias Hypersomnia Hypersomnia, unspecified documented in this encounter [facility] HealthcareEvaluation note* Diagnosis BUCK (obstructive sleep [...] Generalized edema Edema documented in this encounter [facility] HealthcareEvaluation note* Diagnosis BUCK (obstructive sleep [...] foot, initial encounter documented in this encounter [facility] HealthcareEvaluation note* Diagnosis BUCK (obstructive sleep [...] or radiculitis nos documented in this encounter [facility] HealthcareHospital Discharge instructions* Attachments The following attachments cannot be sent through Care Everywhere. * Diabetic Foot Ulcer (Swedish) [facility]* Other (Routine) - ClosedSpecialtyDiagnoses / ProceduresReferred By Contact Referred To ContactRadiology Diagnoses Encounter for screening mammogram for malignant neoplasm of breast Procedures [facility] BRIAN DIGITAL SCREEN BILATERAL Back, MD Felipe [address] [place] [address] Phone: tel: fax: Referral IDStatusReasonStart DateExpiration DateVisits RequestedVisits [id number]/27/20254/ [facility] HospitalProbki Iz okna [facility] HospitalReason for visit Narrative* Imaging (Emergency) - Pending ReviewSpecialtyDiagnoses / ProceduresReferred By ContactReferred To ContactRadiology Diagnoses Pain in right foot Procedures MRI FOOT RIGHT W WO CONTRAST Robbin Sánchez, DPM [address] [facility], [place] [address] Phone: tel: fax: Referral IDStatusReasonStart DateExpiration DateVisits RequestedVisits [id number] Review [facility] Summary Purpose Family History No Family [...] PMFull Code03/05/2017 10:05 AM03/05/2017 12:56 PMDate ActivatedDate FkhaslhcbmjCiyacwbm24/11/2018 4:17 PM08/25/2018 8:55 PMDate ActivatedDate InactivatedComments03/19/2017 1:37 PM03/19/2017 4:32 PMDate ActivatedDate InactivatedComments03/19/2017 10:57 AM03/19/2017 1:37 PMDate ActivatedDate InactivatedComments03/05/2017 12:56 PM03/05/2017 3:55 PMDate Activated Date InactivatedComments03/05/2017 10:05 AM03/05/2017 12:56 PMDate ActivatedDate BuqtpswbpxoCtogacsp42/11/2018 4:17 PM08/25/2018 8:55 PMDate ActivatedDate InactivatedComments03/19/2017 1:37 [...] Everywhere. * Back Care Basics: General Info (Swedish) * Back: Preventing Injuries (Swedish) documented in this encounter Reason for Referral StatusReasonSpecialtyDiagnoses / ProceduresReferred By ContactReferred To ContactClosedRadiology Diagnoses Brachial neuritis Peripheral nerve disorder Spasm of muscle Procedures MR Cervical Spine Without Contrast Trace Casas MD [address] [place] [address] SpecialtyDiagnoses / ProceduresReferred By ContactReferred To ContactRadiology Diagnoses Neck mass Procedures US HEAD NECK SOFT TISSUE THYROID Felipe Adam MD [address] [place] [address] Referral IDStatusReasonStart DateExpiration DateVisits RequestedVisits [id number]/23/20228/904348EszavjpylSjcbgddat / Procedures Referred By ContactReferred To ContactRadiology Diagnoses Thyroid nodule Procedures US THYROID Back, MD Felipe [address] [place] [address] Referral IDStatusReasonStart DateExpiration DateVisits RequestedVisits [id number] Mavjlg22/ Chief Complaint and Reason for Visit Chief Complaint M54.16 M79.10 M79.60 9 R20.9 Chief Complaint Unknown Additional Source Comments INFORMATION SOURCE (unrecogn ized section and content) DATE CREATED AUTHOR 03/30/2018 [facility] DATE CREATED AUTHOR AUTHORKellieS BHARTI BASHIR 03/30/2018 [facility] DATE CREATED AUTHOR AUTHOR'S ORGANIZ ATION 09/15/2018 [facility] DATE CREATED AUTHOR AUTHOR'S ORGANIZ ATION 09/23/2018 [facility] DATE CREATED AUTHOR AUTHOR'S ORGANIZ ATION 09/26/2018 [facility] DATE CREATED AUTHOR AUTHOR'S ORGANIZ ATION 12/10/2018 [facility] DATE CREATED AUTHOR AUTHOR'S ORGANIZ ATION 12/18/2018 [facility] DATE CREATED AUTHOR AUTHOR'S ORGANIZ ATION 02/11/2019 [facility] DATE CREATED AUTHOR AUTHOR'S ORGANIZ ATION 11/30/2021 [facility] DATE CREATED AUTHOR AUTHOR'S ORGANIZ ATION 05/01/2022 [facility] DATE CREATED AUTHOR AUTHOR'S ORGANIZ ATION 01/12/2023 [facility] DATE CREATED AUTHOR AUTHOR'S ORGANIZ ATION 02/15/2023 [facility] DATE CREATED AUTHOR AUTHOR'S ORGANIZ ATION 04/04/2023 [facility] DATE CREATED AUTHOR AUTHOR'S ORGANIZ ATION 02/20/2024 [facility] DATE CREATED AUTHOR AUTHOR'S ORGANIZ ATION 10/17/2024 [facility] DATE CREATED AUTHOR AUTHOR'S ORGANIZ ATION 02/14/2025 [facility] DATE CREATED AUTHOR AUTHOR'S ORGANIZ ATION [address] [facility] DATE CREATED AUTHOR AUTHOR'S ORGANIZ ATION 07/23/2025 [facility] Reason for Visit (unrecogniz ed section and content) ReasonCommentsSleep ApneaSpecialtyDiagnoses / ProceduresReferred By Contact Referred To ContactNeurology Diagnoses BUCK on CPAP Procedures IA OFFICE/OUTPATIENT NEW HIGH MDM 60 MINUTES Fozia Meng, ETL APPLICATION DEVELOPER [address], [facility] [address] [place] [address] Phone: tel: fax: Lynn Block MD [address] [facility] [address] [place] [address] Phone: tel: fax: Referral IDStatusReasonStart DateExpiration DateVisits RequestedVisits [id number] Specialty Services Required /[id number]wkwdbe / ProceduresReferred By ContactReferred To ContactClosedRadiology Diagnoses Brachial neuritis Peripheral nerve disorder Spasm of muscle Procedures MR Cervical Spine Without Contrast Trace Casas MD [address] [place] [address] SpecialtyDiagnoses / ProceduresReferred By ContactReferred To Contact Occupational Therapy Diagnoses Carpal tunnel syndrome Carpal Tunnel Syndrome Procedures Eval and treat Keenan Lozano MD [address] [place] [address] [facility] [address] [place] [address] Referral IDStatusReasonStart DateExpiration DateVisits RequestedVisits [id number] / Procedures Referred By ContactReferred To ContactPhysical Therapy Diagnoses Radiculopathy, lumbar region Lumbar Radiculopathy Procedures Eval and treat Janel Allen, PATENT LITIGATION ASSOCIATE - RESEARCH NEUROPSYCHOLOGIST [address] [place] [address] [facility] [address] [place] [address] Referral IDStatusReasonStart DateExpiration DateVisits RequestedVisits [id number]/[id number] / Procedures Referred By ContactReferred To ContactRadiology Diagnoses Neck mass Procedures US HEAD NECK SOFT TISSUE THYROID Back, MD Felipe [address] [place] [address] Referral IDStatusReasonStart DateExpiration DateVisits RequestedVisits [id number]/23/20228/[id number] / Procedures Referred By ContactReferred To ContactRadiology Diagnoses Pain of foot, unspecified laterality Closed nondisplaced fracture of lateral cuneiform of left foot, initial encounter Procedures MRI FOOT LEFT W WO CONTRAST MRI FOOT LEFT W WO CONTRAST Robbin Sánchez, DPDieudonne [address] [facility], [address] [place] [phone] Referral IDStatusReasonStart DateExpiration DateVisits RequestedVisits [id number]/16/20229/940703ZxllyvBiuefiszOlidmurnh Class SpecialtyDiagnoses / ProceduresReferred By ContactReferred To ContactDiabetes Services Diagnoses Pre-diabetes Felipe Adam MD [address] [place] [address] [facility] [address] [place] [phone] Referral IDStatusReasonStart DateExpiration DateVisits RequestedVisits [id number] Specialty Services Required /[id number] / ProceduresReferred By ContactReferred To ContactDiabetes Services Diagnoses Pre-diabetes Felipe Adam MD [address] [place] [address] [facility] [address] [place] [address] ReasonCommentsOtherLeft foot charcot on-going since 06/2022. New x-rays today. 2nd of opinion.SpecialtyDiagnoses / ProceduresReferred By ContactReferred To ContactRadiology Diagnoses Thyroid nodule Procedures US THYROID Felipe Adam MD [address] [place] [address] Referral IDStatusReasonStart DateExpiration DateVisits RequestedVisits [id number] Mslqtv10/[id number] DateCommentsMed Pvdapj3110/05/2024ReasonCommentsNew PatientFNA - THYROID NODULESpecialtyDiagnoses / ProceduresReferred By ContactReferred To ContactOtolaryngology Diagnoses Thyroid nodule Felipe Adam MD [address] [place] [phone] Phone: tel: fax: Dimas Adair MD [address] [address] Phone: tel: fax: Referral IDStatusReasonStart DateExpiration DateVisits RequestedVisits [id number] [id number] UlcerPt presents to ER with a skin [...] DateEnd Date Back, MD Felipe [address] [place] [address] PCP - GeneralInternal Medicine11/14/11Team MemberRelationshipSpecialtyStart Date End Date Felipe Adam MD [address] [place] [address] PCP - GeneralInternal Medicine11/14/11Team MemberRelationshipSpecialtyStart Date End Date BackFelipe MD [address] [place] [address] PCP - GeneralInternal Medicine11/14/11Team MemberRelationshipSpecialtyStart Date End Date BackFelipe MD [address] [place] [address] PCP - GeneralInternal Medicine11/14/11Team MemberRelationshipSpecialtyStart Date End Date Back, MD Felipe [address] [place] [phone] PCP - GeneralInternal Medicine11/14/11Team MemberRelationshipSpecialtyStart Date End Date Back, MD Felipe [address] [place] [address] PCP - GeneralInternal Medicine11/14/11Team MemberRelationshipSpecialtyStart Date End Date Back, MD Felipe [address] [place] [phone] PCP - GeneralInternal Medicine11/14/11 Team Status: Inactive Member Role Status Dates NON STAFF Primary Care Provider Active Trace Casas MDAttending ProviderActive Team Status: Active Member Role Status Dates NON STAFF Primary Care Provider Active Team MemberRelationshipSpecialtyStart DateEnd Date Back, MD Felipe [address] [place] [phone] PCP - GeneralInternal Medicine11/14/11Team MemberRelationshipSpecialtyStart Date End Date Back, MD Felipe [address] [place] [address] PCP - GeneralInternal Medicine11/14/11Team MemberRelationshipSpecialtyStart Date End Date Back, MD Felipe [address] [place] [id number] PCP - GeneralInternal Medicine11/14/11Team MemberRelationshipSpecialtyStart Date End Date Back, MD Felipe [address] [place] [id number] PCP - GeneralInternal Medicine11/14/11Team MemberRelationshipSpecialtyStart Date End Date Back, MD Felipe [address] [place] [address] PCP - GeneralInternal Medicine11/14/11Team MemberRelationshipSpecialtyStart Date End Date Back, MD Felipe [address] [place] [address] PCP - GeneralInternal Medicine11/14/11Team MemberRelationshipSpecialtyStart Date End Date Back, MD Felipe [address] [place] [address] PCP - GeneralInternal Medicine11/14/11Team MemberRelationshipSpecialtyStart Date End Date Back, MD Felipe [address] [place] [address] PCP - GeneralInternal Medicine11/14/11Team MemberRelationshipSpecialtyStart Date End Date Back, MD Felipe [address] [place] [address] PCP - GeneralInternal Medicine03/26/15Team MemberRelationshipSpecialtyStart Date End Date Back, MD Felipe [address] [place] [address] PCP - GeneralInternal Medicine11/14/11 Team Status: Inactive Member Role Status Dates Frances Harris DPM MS Attending Provider Active Start: February 15, 2024 End: February 15, 2024Team MemberRelationshipSpecialtyStart DateEnd Date Back, MD Felipe [address] [place] [address] PCP - GeneralInternal Medicine11/14/11Team MemberRelationshipSpecialtyStart Date End Date Back, MD Felipe [address] [facility], [place] [address] PCP - GeneralInternal Medicine11/14/11Team MemberRelationshipSpecialtyStart Date End Date Back, MD Felipe [address] [facility], [facility] PCP - GeneralInternal Medicine03/26/15Team MemberRelationshipSpecialtyStart Date End Date Back, MD Felipe [address] [facility], [facility] PCP - GeneralInternal Medicine03/26/15am MemberRelationshipSpecialtyStart Date End Date Back, MD Felipe [address] [facility], [place] [address] PCP - GeneralInternal Medicine11/14/11am MemberRelationshipSpecialtyStart Date End Date Back, MD Alcides [address] [facility], [facility] PCP - GeneralFamily Medicine12/08/24Team MemberRelationshipSpecialtyStart DateEnd Date Back, MD Alcides [address] [facility], [facility] PCP - GeneralFamily Medicine12/08/24Team MemberRelationshipSpecialtyStart DateEnd Date Back, MD Felipe [address] [facility], [facility] PCP - GeneralInternal Medicine11/14/11Team MemberRelationshipSpecialtyStart Date End Date Back, MD Alcides [address] [facility], [facility] PCP - GeneralFamily Medicine12/08/24Team MemberRelationshipSpecialtyStart DateEnd Date Back, MD Felipe [address] [facility], [facility] PCP - GeneralInternal Medicine11/14/11Team MemberRelationshipSpecialtyStart Date End Date Back, MD Alicdes [address] [facility], [facility] PCP - GeneralFamily Medicine12/08/24Team MemberRelationshipSpecialtyStart DateEnd Date Back, MD Alcides [address] [facility], [place] [address] PCP - GeneralFamily Medicine12/08/24Team MemberRelationshipSpecialtyStart DateEnd Date Back, MD Alcides [address] [facility], [facility] PCP - GeneralFamily Medicine12/08/24Team MemberRelationshipSpecialtyStart DateEnd Date Back, MD Alcdies [address] [facility], [place] [address] PCP - GeneralFamily Medicine12/08/24Team MemberRelationshipSpecialtyStart DateEnd Date Back, MD Felipe [address] [facility], [facility] PCP - GeneralInternal Medicine11/14/11Team MemberRelationshipSpecialtyStart Date End Date Back, MD Felipe [address] [facility], [facility] PCP - GeneralInternal Medicine11/14/11Team MemberRelationshipSpecialtyStart Date End Date Back, MD Alcides [address] [place] [address] PCP - GeneralFamily Medicine12/08/24Te MemberRelationshipSpecialtyStart DateEnd Date Back, MD Felipe [address] [facility], [place] [address] PCP - GeneralInternal Medicine11/14/11Team MemberRelationshipSpecialtyStart Date End Date Back, MD Alcides [address] [place] [address] PCP - [facility]Community [facility] Hospitally Medicine12/08/24Team MemberRelationshipSpecialtyStart DateEnd Date Back, MD Alcides [address] [place] [address] PCP - Generalmily Medicine12/08/24Team MemberRelationshipSpecialtyStart DateEnd Date Back, MD Felipe [address] [place] [address] PCP - GeneralInternal Medicine11/14/11 Goals (unrecognized section [...] ered Medications (unrecognized section and content) Medication Order06/30/640898/01/871391/11/2024 ciprofloxacin (CIPRO) IVPB 400 mg (COMPLETED) 400 [...] BE BASED ON THE PRIMARY CLINICAL RECORDS. [facility] [employer] [facility]. provides no warranty or guarantee of the accuracy or completeness of information in this document.
== END 2025-07-25 16:03 | disposition home or self-care (01) ==
LOC: WC 16:02
PROVIDERS: PCP Internal Medicine; Visit Provider Physician Assistant
DX: E11.621 Type 2 diabetes mellitus with foot ulcer (principal); L97.422 Non-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 with fat layer exposed; L97.515 Non-pressure chronic ulcer of other part of right foot with muscle involvement without evidence of necrosis; L97.528 Non-pressure chronic ulcer of other part of left foot with other specified severity; L97.518 Non-pressure chronic ulcer of other part of right foot with other specified severity
CPT/HCPCS: 29445; 73630

== ENCOUNTER 2025-08-02 10:17 | Outpatient (OUT) | payer OTHER, SELFPAY ==
--- OUTSIDE RECORDS SUMMARY | 2025-08-02 10:19 | XMS_ITS | Clinical Summary ---
Author Organization [facility] Address [address] [place] [address] Care Team Providers Care Pricing Associate Name Role Phone Alcides Adam MD Primary Care Provider [phone] Allergies Active AllergyReactionsCriticalityNoted DateCommentsChlorhexidineRashLow 03/03/20239118Vulqslpzhx09/25/2024 Made her feel overly thirsty and caused [...] mg) by mouth at bedtime 90 tablet 301/27/769926/27/2026Active Rimegepant Sulfate (Nurtec) 75 MG tablet dispersible [...] BEDTIME FOR 30 DAYS 60 tablet 5Active pregabalin (Lyrica) 300 MG capsule Indications:Idiopathic progressive polyneuropathy,Non-seasonal allergic rhinitis due to pollenTAKE 1 CAPSULE BY MOUTH IN THE MORNING AND 1 CAPSULE BY MOUTH BEFORE BEDTIME 180 capsule 5Active pregabalin (Lyrica) 300 MG capsule Indications:Idiopathic progressive polyneuropathy,Non-seasonal allergic rhinitis due to pollenTake 1 capsule (300 mg) by mouth in the morning and 1 capsule (300 mg) before bedtime. 180 capsule Discontinued Active Problems ProblemNoted DateDiagnosed CqaxDwtkhzilcjcjni77/04/2025 Assessment & Plan (03/14/2025 5:41 PM EDT): Add alprazolam 0.25 ahs. Orders: ALPRAZolam (Xanax) 0.25 MG tablet; Take 1 tab 30-45 min before PAP therapy nightly Assessment & Plan (12/06/2024 1:26 PM EST): Once machine is received, pt to call for Rx alprazolam 0.25 hs for better tolerance of mask on face. Trochanteric bursitis of both hips08/24/2023olyneuropathy due to type 2 diabetes kvlubspy79/16/2023Obstructive sleep apnea05/20/2023Hypersomnia 05/20/2023 Assessment & Plan (03/14/2025 5:41 PM EDT): Discussed modafinil. May start 100 qam if/when desired., but first optimize PAP use. Cervical paraspinal muscle spasm05/20/2023MRSA (methicillin resistant Staphylococcus aureus) oxmglbpmff54/15/2023ain in left foot05/19/2023cute yxmspbdzrgr31/04/2023ilateral carpal tunnel trnouwki82/04/2023arpal tunnel syndrome of left wrist03/08/2023ervical disc qslcozeiipwh91/04/2023harcot's joint, left ankle and foot03/08/2023hronic migraine without aura, not intractable, without status dtlzaqfwask16/04/2023losed fracture of metatarsal bone03/08/2023losed nondisplaced fracture of second metatarsal bone of left foot03/08/2023losed fracture of navicular bone of foot03/08/2023losed nondisplaced fracture of intermediate cuneiform of left foot03/08/2023 Contracture, left ankle03/08/2023iscitis of thoracic jlihmh0203/08/2023 Disturbance of skin mwakpdxri40/04/2023Elevated C-reactive protein (CRP) 03/08/2023Idiopathic progressive oqsvwhnrwewyox21/04/3846Kzmlefykayp16/04/2023 Infection of thoracic spine03/08/20237495Pboojxrm00/04/2023Limb pain03/08/2023Lumbar djfsugcstlbqg62/04/2023Lumbosacral spondylosis without bagqellmsu23/04/2023 Sitbzzmy54/04/8301Jxgfwam35/04/2023Hereditary and idiopathic neuropathy, rgtlpnrefge10/04/2023rimary osteoarthritis, unspecified ankle and foot 03/08/2023Tarsal tunnel bcdojivp49/04/2023Type 2 diabetes mellitus with diabetic icgnjbtmguxrdz35/04/2023re-uxtbzlgd61/26/8015Jrbppo26/25/2022Thyroid nodule 2Restless legs05/13/2021OSA (obstructive sleep apnea)05/11/2020 Assessment [...] Orders: Ambulatory referral to Neurology Epidural abscess ([facility])08/20/2018Septic efjhktiyj22/16/2018Abdominal pain 05/04/2018Pure tsjtezidokcetmdep93/31/3692Oqoosfiemgvwgu57/31/2018Neoplasm of uncertain behavior of skin02/05/2018Peripheral aadhgjdlxn80/27/2018Basal cell carcinoma of skin of face09/16/2017 Overview (03/08/2023): Added automatically from request for surgery [id number] Overview: Added automatically from request for surgery [id number] Mixed ihxbytsglxbbag63/15/2017Carpal tunnel syndrome of right wrist03/05/2017 Vitamin D pqfqgqhgqe11/08/2014GERD (gastroesophageal reflux disease)09/08/2014 Chronic glomerulonephritis with pathological lesion in fplujm7506/09/2014Chronic renal impairment, stage 3 (moderate)06/09/2014Thoracic degenerative disc disease 05/09/2014Seasonal cpfbczney46/11/2014CRI (chronic renal insufficiency) 10/25/2013Depression with trzitnf6306/24/20131238Neqoaiipqguir24/20/2013Fatigue 07/20/2012 Encounters DateTypeDepartmentCare MzkyRkqiwqjcixd74/25/2025Refill [facility] [address] [facility] [address] [place] [address] Janel Allen, ONUR Idiopathic progressive polyneuropathy; Non-seasonal allergic rhinitis due to ttjxhl5505/24/2025 12:30 PM EDTAncillary Procedure [facility] [address] [facility] [address] [place] [address] Cervical paraspinal muscle spasm05/24/2025 11:30 AM EDTOffice Visit [facility] [address] [place] [address] Jennie Barajas, SAMPLE DISTRIBUTOR-DRY CANS BACK TENDER BUCK (obstructive sleep apnea) (Primary Dx); Cervical paraspinal muscle spasm; Cervical qjfixkrocpjiq64/20/2025Telephone [facility] [address] [place] [address] Gauri Jay MA TENS05/24/2025amboo flowsheet [facility] [address] [place] [phone] Jennie Barajas, SAMPLE DISTRIBUTOR-DRY CANS BACK TENDER 05/24/20256338Vmngqj61/19/2025Telephone [facility] [address] [facility] [address] [place] [address] Nash Block MD from Last 3 Months [...] ValueDate RecordedSex Assigned at BirthNot on fileLegal SsaEgkhjk94/15/2023 7:36 PM EDTGender IdentityNot on fileSexual OrientationNot on file Last Filed Vital Signs Vital SignReadingTime TakenCommentsBlood Uedwuaoc263/8008 11:47 AM EDT Umvzu45505 12:32 PM EDTTemperature--Respiratory Gtow179405/24/2025 11:47 AM EDTOxygen Dfisziumwb50%05/24/2025 11:47 AM EDTInhaled Oxygen Concentration-- Vwqjge24.3 kg (210 lb)05/24/2025 11:47 AM NVVPezohn784.5 cm (5' 2 )05/24/2025 11:47 AM EDTBody Mass Index38.4108 11:47 AM EDT Plan of Treatment DateTypeDepartmentCare Team (Latest Contact Info)Jwjskbqfxum77/19/2025 1:00 PM ESTOffice Visit [facility] [address] [place] [address] Jennie Barajas, SAMPLE DISTRIBUTOR-DRY CANS BACK TENDER [address] [place], [place] [id number] 08/29/2025 11:45 AM ESTOffice Visit [facility] [address] [place] [address] Nash Block MD [address] [facility] [address] [place] [address] Procedures Procedure NamePriorityDate/TimeAssociated DiagnosisCommentsXR CERVICAL SPINE COMPLETE 4-5 TAKTSCqjfylr05/20/2025 12:45 PM EDT Cervical paraspinal muscle spasm [...] Davila DO Authorizing ProviderResult TypeResult StatusJessica Barajas SAMPLE DISTRIBUTOR-CNPIMG XR PROCEDURESFinal Result from Last 3 Months Insurance Care Teams Team MemberRelationshipSpecialtyStart DateEnd Date Back, MD Alcides [address] [place] [address] PCP - GeneralFamily Medicine12/08/24
--- OUTSIDE RECORDS SUMMARY | 2025-08-02 10:19 | XMS_ITS | Clinical Summary ---
Author Organization [facility] Address [address] [place] [address] Phone Care Team Providers Care [employer] Chief Scientist Name Role Phone Unavailable Primary Care Provider Unavailabl e Social History Tobacco UseTypesPacks/DayYears UsedDateSmoking Tobacco: Never Assessed CommentsUnknownSex and Gender InformationValueDate RecordedSex Assigned at Not on fileLegal JjoUvmzdg48/25/2022 12:57 PM ESTGender IdentityNot on file Sexual OrientationNot on file Plan of Treatment Not on file
--- OUTSIDE RECORDS SUMMARY | 2025-08-02 10:19 | XMS_ITS | Encounter Summary ---
Author Organization [facility] Address [address] [place] [address] Care Team Providers Care Assembler [employer] Cell And Battery Name Role Phone Alcides Adam MD Primary Care Provider [phone] Reason for Visit * ReasonCommentsMed Refill Encounter Details DateTypeDepartmentCare Team (Latest Contact Info)Rnrsmhnljdi31/25/2025Refill [facility] [address] [facility] [address] [place] [address] Janel Allen NP [address] [facility] [address] [address] Idiopathic progressive polyneuropathy; Non-seasonal allergic rhinitis due to pollen Social History Tobacco UseTypesPacks/DayYears UsedDateSmoking Tobacco: NeverSmokeless Tobacco: NeverAlcohol UseStandard Drinks/WeekCommentsNot Currently0 (1 standard drink = 0.6 oz pure alcohol)1-2 times a yearCommentsUnknownSex and Gender InformationValueDate RecordedSex Assigned at BirthNot on fileLegal SexFemale 12/17/2022 7:36 PM EDTGender IdentityNot on fileSexual OrientationNot on file documented as of this encounter Miscellaneous Notes * Telephone Encounter - Janel Allen NP - 07/31/2025 8:33 AM EDT OARRS reviewed. Sent. documented in this encounter Plan of Treatment DateTypeDepartmentCare Team (Latest Contact Info)Zcobcxztdnc86/19/2025 1:00 PM ESTOffice Visit [facility] [address] [facility] [address] [place] [phone] Jennie Barajas APRN-TIPPLE SUPERVISOR [address] [facility] [place], [place] [id number] 08/29/2025 11:45 AM ESTOffice Visit [facility] [address] [facility] [address] [place] [phone] Nash Block MD [address] [facility] [address] [id number] documented as of this encounter Visit Diagnoses Diagnosis Idiopathic progressive polyneuropathy Non-seasonal allergic rhinitis due to pollen documented in this encounter Care Teams Team MemberRelationshipSpecialtyStart DateEnd Date Back, MD Alcides [address] [place] [address] PCP - GeneralFamily Medicine12/08/24documented as of this encounter
--- OUTSIDE RECORDS SUMMARY | 2025-08-02 10:19 | XMS_ITS | Continuity of Care Document ---
Author Organization [facility] Address [address] [place] [id number] Phone [phone] Care Team Providers Care Supervisor Cold Rolling Name Role Phone Back, Alcides MELENDREZ Care Team Information Calculation Clerk [phone] Problems Active Problems Provider Date Chronic kidney [...] Range N ote .Urine Protein/Creat. Random 06/12/2025 [place], [place] [phone].Urine Protein Random<4.Urine Creatinine Mbivge07.4.V Ipth-Vitamin D006/12/2025[place], [place] [phone].Ipth40.0.Vitamin D, 25 Wnkvjnx79.2.Renal Panel06/12/2025[place], [place] [phone].Albumin4.2.Calcium9.2.Carbon Vfisbmd22.Mtpqoerg91.Phosphorus3.9 .Potassium4.5.Xbnjfm848.BUN23.GFR Bmuwbtxsf48Pgmh70.Creatinine-LC1.3.Urine Protein/Creat. Uquuhi1005/10/2024[place], [place] [phone].Urine Protein Random9.Urine Creatinine Ewdsyy719.0.Urine Prot/Creat Ratio0.07.Bzqasjhfh47/06/2024[place], [place] [phone].Magnesium2.2.Urinalysis-Ofxjxll3105/10/2024[place], [place] [phone] Specific Gravity1.020Ua PH Test Strip5.0Ua ColoryellowUa AppearanceclearUa ProteintraceUa GlucosenegativeUa KetonesnegativeUa Bilirubin negativeUa UrobilinogennormalUa NitritenegativeUa Occult Bloodnegative.Renal Panel05/10/2024[place], [place] [phone].Albumin4.2.Calcium9.2.Carbon Ksubcdm46.Wdtpfypu935.Phosphorus3.8 .Potassium4.0.Gnkcic773.BUN19.GFR Txrdzolaq00Ensb13.Creatinine-LC1.3.Renal Panel 05/17/2023[place], [place] [phone].Albumin4.1.Calcium9.5.Carbon Engythb65.Pqtmkgrd703.Phosphorus3.0 .Potassium4.3.Kpmaeg834.BUN17.GFR >87Ljsd98.Creatinine-LC1.1.Urine Protein/Creat. Knfsbm6805/17/2023[place], [place] [phone].Urine Protein Tqqhmd08.Urine Creatinine Pxyflw226.1.Urine Prot/Creat Ratio0.07.Ipth05/17/2023[place], [place] [phone].Ipth47.1.Vitamin D, 25 Xylixen7705/17/2023[place] [phone].Vitamin D, 25 Vdkpslk20.1.Urine Protein/Creat. Eeoqhr5105/20/2022 [place] [phone].Urine Protein Random7.Urine Creatinine Kviljj03.1.Urine Prot/Creat Ratio0.07.Tibc-LC05/20/2022[place], [place] [phone].Tibc-LC263.Xrrmciwd17/16/2022[place], [place] [phone].Rdcqqeeu097.Iron05/20/2022[place], [place] [phone].Iron48.Transferrin-LC05/20/2022[place], [place] [phone].Transferrin-LC280.T-Sat-LC05/20/2022[place], [place] [phone].T-Sat-LC0.18.V Ipth-Vitamin D005/20/2022[place], [place] [phone].Ipth39.91.Vitamin D, 25 Inrjvul18.3.Vapgalmyy64/16/2022[place] [phone].Magnesium2.1.Hemoglobin And Mxoszjstak92/16/2022[place] [phone].Hemoglobin Blood11.1.Xaonucprqr93.3.Renal Panel05/20/2022[place], [place] [phone].Albumin4.4.Hmplysv41.0.Carbon Gqtveyz08.Wvvobssq407.Phosphorus3.8 .Potassium4.3.Urglgd405.BUN18.UQH86Evrs64.GFR Xhpkrdqmo58Qcqo21.Creatinine-LC 1.13.Renal Panel (Other Labs)05/21/2021[place], [place] [phone].Albumin4.2.Calcium9.2.Carbon Ryfrzga80.Lgbnarzb078.Creatinine-LC 1.18.Phosphorus3.7.Qmubne229.BUN19.SZT85Jfgj20.Potassium4.2.Urine Protein/Creat. Qdhyfd1005/21/2021[place], [place] [phone].Urine Protein Random7.Urine Creatinine Fctrvd225.7.Magnesium 05/21/2021[place], [place] [phone].Magnesium2.2.Urinalysis-Uesvfzs8805/21/2021[place] [phone] Specific Gravity1.020Ua PH Test Strip5.0Ua ColorYELLOWUa AppearanceCLEARUa ProteinTRACEUa GlucoseNEGATIVEUa KetonesNEGATIVEUa UrobilinogenNORMALUa Occult BloodNEGATIVE.Ua05/25/2020[place], [place] [phone] AppearanceclearUa Bilirubin-Ua Blood-Ua ColoryellowUa Glucose 100mg/dlUa Leuko-Ua Nitrite-Ua PH Test Strip6.0Ua Protein-Ua Specific [place] 1.020Ua Urobilinogen-.Urine Protein/Creat. Olzqdq5705/25/2020[place] [phone].Urine Protein Random8.Urine Creatinine Hnmpxb560.2.Urine Prot/Creat Ratio0.08.Renal Panel05/25/2020[place] [phone].Albumin4.4.Ohyzydd98.1.Carbon Nprrgoq21.Rrfufgmj124.Creatinine-LC 1.37.Drtnmrlltm10.Ydunlg392.BUN24.GFR-FC87Tasu02.Potassium4.6.Renal Panel 06/17/2019[place], [place] [phone].Albumin4.3.Btzzumo46.4.Carbon Exiqmrt77.Oniaofwj778.Creatinine-LC 1.27.Phosphorus3.0.Dpgckb144.BUN18.GFR-YK36Nytp14.Potassium3.8.Ua06/17/2019[place] [phone] AppearanceHAZYUa Bacteria1+Ua BilirubinNEGUa BloodNEGUa Color YELLOWUa Epithelial Cells QL2-5Ua GlucoseNEGUa KetonesNEGUa LeukoNEGUa Nitrite NEGUa PH Test Strip6.0Ua ProteinTRACEUa Specific Gravity1.025Ua Urobilinogen NORMALUa WBC0-2.Urine Protein/Creat. Bslhaw7006/17/2019[place] [phone].Urine Protein Brvoqq46.Urine Creatinine Gmrieu852.2.Urine Prot/Creat Ratio0.08.Vjpudnzai08/13/2019[place] [phone].Magnesium2.3.Hemoglobin And Seyfrorbks93/13/2019[place] [phone].Hemoglobin Blood12.1.Wayrdedafq70.4.Renal Panel -LC04/14/2018 [place] [phone].Albumin3.7.Calcium8.9.Carbon Vnqlrqw86.Ccqvmzud452.Creatinine-LC 1.28.Phosphorus3.6.Gbyfkh456.BUN19.GFR-LB87Jmel54.Potassium4.1.Urine Protein/Creat. Unnnje8704/14/2018[place] [phone].Urine Protein Random7.Urine Creatinine Odneab445.7.Urine Prot/Creat Ratio0.07.CBC W/Mieldgzoevri66/11/2018[place] [phone] Blood Count8.6.Red Blood Count4.40.Hemoglobin Blood13.3 .Bivcvbkyob62.4MCH (Corpuscular Hemoglobin)30.2MCHC (Corpuscular Hemog Conc)33.7 RDW15.6.Platelet Count Dcnav211Ampjjvdbpam74Vjgiq Efkwjkdnydk81Ihqgfxdse3Caspq Body Ydekbnjscic3Ppbrmqksu %1Absolute Basophils0.10Absolute Eosinophils0.20 Absolute Lymphocytes2.70Absolute Monocytes0.50.Ipth04/14/2018[place] [phone].Ipth63.60Mxrq2211/18/2017[facility], Abdomen, W/ ContrastSEE SMSFPLRwxp56/14/2018[facility], Abdomen, W/ ContrastCORTICAL CYST L KIDY.Urinalysis-Vastzfs6911/17/2017 [facility] [phone] UrineNO SIGNIFICANT H.Urinalysis-Sodhirr8111/17/2017[facility] [phone] Specific Gravity1.014Ua PH Test Strip6.0Ua ColorYELLOWUa AppearanceHAZYUa WBC6Ua ProteinNEGUa GlucoseNEGUa KetonesNEGUa BilirubinNEGUa Urobilinogen<2.0Ua NitriteNEGUa Occult BloodMOD.CMP11/17/2017[facility] [phone].Albumin3.1.Alt18.Calcium8.6.Carbon Klepnez18.Ebintxvn070 .Creatinine-LC1.13.Glucose Lquko717.Alkaline Phos78.Potassium3.7.Protein-Total 6.8.Mxnmlg762.Ast7.BUN17.GFR Bsxlbeufj41Qzfi78.Urine Prot/Creat Ratio02/17/2017 [place] [phone] Prot/Creat Ratio0.07Miscellaneous Other02/17/2017[place] [phone] Test - Put Test In Ordercompleted.Renal Panel -LC02/17/2017 [place] [phone].Albumin4.1.Calcium9.4.Carbon Aiztysw89.Yabkzrsd588.Creatinine-LC 1.31.Phosphorus3.4.Oxwqwz457.BUN21.GFR-GF08Wxsf74.Potassium4.1.BMP W/Egfr-LC 08/07/2016[facility] [phone].Vkxuzu281.Potassium4.3.Manzrjyl129.Carbon Aueydou51.Calcium9.5 .Glucose Godpw059.GFR-RM24Loav91.Creatinine-LC1.17.BUN16.Hemoglobin A1c-LC 08/07/2016[facility] [phone].Hemoglobin Q5g-GX9.1.Lipid Panel08/07/2016[facility] [phone].Zwrbocagjcf488.Cholester/HDL Ratio6.2High Density Bjlaazjxycs85 .LDL/HDL Ratio79.LDL Qbfdzeviikf236.Ndnlnjsgzcvxp799.CBC W/O Differential 08/07/2016[facility] [phone].Efiaghkphl38.1.Hemoglobin Blood12.6.Platelet Count Pmuen558.Red Blood Count4.34WOK31.2.White Blood Count7.6MCH (Corpuscular Hemoglobin)29.8MCHC (Corpuscular Hemog Conc)34.1Urine Iwfvile7006/08/2015[place], [place] [phone] Urine Routinesee report.Urinalysis-Kyexyvy8606/08/2015[place] [phone] Specific Gravity1.020Ua PH Test Strip5.0Ua ColoryellowUa AppearanceclearUa ProteinnegativeUa GlucosenegativeUa BilirubinnegativeUa UrobilinogennormalUa Nitritenegative.Urine Protein/Creat. Kwyrzd8606/08/2015[place] [phone].Urine Protein Lktaxg87.Urine Creatinine Ahcspl840.4.Urine Prot/Creat Ratio0.05.Renal Panel06/08/2015[place] [phone].Albumin4.0.Calcium8.9.Carbon Gtcbipj14.Slpvolws703.Creatinine-LC 1.29.Phosphorus3.0.Potassium3.6.Qerwkv323.BUN14.GFR-YR97Ccje04.Hemoglobin And Pnnlpummzf04/04/2015[place] [phone].Hemoglobin Blood12.8.Pmcjbbbmoc11.2.Ua12/29/2014[place] [phone] AppearanceclearUa BilirubinnegativeUa BloodtraceUa Coloryellow Ua Epithelial Cells QL2 to 5Ua GlucosenegativeUa LeukonegativeUa Nitritenegative Ua PH Test Strip5.0Ua ProteinnegativeUa RBC0 to 2Ua Specific Gravity1.020Ua Urobilinogennormal.Renal Panel12/29/2014[place], [place] [phone].Albumin4.1.Calcium9.7.Carbon Vdtgdaq83.Juiujico482.Creatinine-LC 1.50.Phosphorus4.2.Potassium4.1.Bfrryu259.BUN18.GFR-IA80Qacg76.Urine Protein/Creat. Gvsmrq2712/29/2014[place] [phone].Urine Protein Random6.Urine Creatinine Hggypb640.0.Urine Prot/Creat Ratio0.05.Renal Panel12/06/2014[place] [phone].Albumin4.0.Calcium9.2.Carbon Kopwdwq97.Wejlfqdk068.Creatinine-LC 1.32.Phosphorus3.0.Potassium4.3.Cjttlu236.BUN17.GFR-DH82Gmqf81.Urine Protein/Creat. Hxoxvs1612/06/2014[place] [phone].Urine Protein Random7.Urine Creatinine Qjdsib919.8.Urine Prot/Creat Ratio0.04.Ua12/06/2014[place] [phone] AppearanceclearUa Bacteria1+Ua BilirubinnegativeUa BloodtraceUa ColoryellowUa Epithelial Cells QL2 to 5Ua GlucosenegativeUa LeukonegativeUa NitritenegativeUa PH Test Strip6.0Ua ProteinnegativeUa RBC2 to 5Ua Specific Gravity1.020Ua Urobilinogennormal.Complement C306/13/2014[place] [phone].Complement C3140.Bbfomjoum50/09/2014[place] [phone].Magnesium2.3.Zsoirsk5106/13/2014[place] [phone].Calcium9.1.Osepianudh64/09/2014[place] [phone].Phosphorus3.8.Urine Protein 24HR06/13/2014[place] [phone].Urine Protein Total 24H63.Urinalysis-Opsolyo1906/13/2014[place] [phone] Specific Gravity1.015Ua PH Test Strip6.0Ua ColorYELLOWUa AppearanceCLEARUa ProteinNEGATIVEUa GlucoseNEGATIVEUa BilirubinNEGATIIVEUa UrobilinogenNORMALUa NitriteNEGATIVE.V Ipth-Vitamin D006/13/2014[place] [phone].Ipth49.31.Vitamin D, 25 Ifwmsny81.9.Anca Panel-LC06/13/2014[place] [phone].Anca-C30.Anca-P7.Urine Protein Elect Ran06/13/2014[place] [phone] InterpretationNORMAL.GBM Antibody-LC06/13/2014[place] [phone].Jyae-YEY-UY6.Complement Total (CH50)06/13/2014[place] [phone].Complement Total (CH50)115.Complement C406/13/2014[place] [phone].Complement C429.Ipth06/13/2014[place] [phone].Ipth49.31.Lipid Panel06/13/2014[place] [phone].Zrawbmynfcc60.Cholester/HDL Ratio5.6High Density Rtiommgissc29 .LDL/HDL Ratio58.LDL Efjewkfepaw193.Nunzjlnbowhac568.Immunofixation-Urine 06/13/2014[place] [phone].Immunofixation-UrineNEGATIVE.Vitamin D, 25 Vwhahwf6006/13/2014[place] [phone].Vitamin D, 25 Riibxmk54.9.Hqmvygyvvexs60/09/2014[place] [phone].Cryoglobulin0.Hepatitis B-Surface Pzhuftv4806/13/2014[place] [phone].Hepatitis B-Surface AntigenNON REACTIVE.Hepatitis C006/13/2014 [place] [phone].Hepatitis CNON REACTIVE.Immunofixation-Serum06/13/2014[place] [phone].Immunofixation-SerumNEGATIVE.Hemoglobin And Mevgoankdk33/09/2014 [place] [phone].Hemoglobin Blood13.0.Xkwxdttktg73.9.Urine Eosinophils Random 06/13/2014[place] [phone].Urine Eosinophils RandomNONE SEEN.BUN06/13/2014[place] [phone].BUN18.Creatinine-LC06/13/2014[place] [phone].Creatinine-LC1.27.GFR-LC06/13/2014[place] [phone].GFR-LQ79Yhkq58.Arrvkc7606/13/2014[place] [phone].Fyjnvo750.Zefxvsroh65/09/2014[place] [phone].Potassium4.4.Lopnzyyr21/09/2014[place] [phone].Qovtpsts706.Carbon Wonvsix2006/13/2014[place] [phone].Carbon Znnfwkq47.Renal Panel05/30/2014[facility] [phone].Albumin3.9.Calcium9.3.Carbon Mvvjdhv28.Cfkmxlmw712.Creatinine-LC 1.41.Potassium3.6.Vobmzq890.BUN16.GFR-HA44Ioik42.GFR Nqofobiv51Hnfm31 .GFR Rksqqcspp58Nhcv24.Urinalysis-Mnazulu0905/30/2014[facility] [phone] Specific Gravity1.030Ua PH Test Strip5.0Ua ColoryellowUa AppearancehazyUa ProteinnegativeUa GlucosenegativeUa KetonesnegativeUa Bilirubin negativeUa UrobilinogennormalUa Nitritenegative.Renal Panel05/22/2014[facility] [phone].Albumin4.1.Calcium9.1.Carbon Umvdiyt48.Xxaknlbg715.Creatinine-LC 1.45.Potassium3.8.Znkqxf897.BUN19.GFR-IB49Cjhk45.GFR Emabsdrc38Qiov04 .GFR Rbvazhpol50Jaac67.Renal Panel01/13/2014[facility] [phone].Albumin4.1.Calcium9.3.Carbon Ckeoiwr29.Vjharfhp615.Creatinine-LC 1.26.Potassium4.1.Htjcuf394.BUN19.GFR-YB39Miqa84.GFR Wpnojzkp23Dnah47 .GFR Nnhltqsxh69Hzzc87 Encounters Type Date Location Provider Dx Diagnosis Office Visit 06/14/2025 2:20p [facility] Heather Forbes M.D. N11.9 Chronic tubulo-interstitial nephritis, unspecified N18.31 Chronic kidney disea se, stage 3a Office Visit 05/13/2024 1:00p [facility] SHUKRI Sebastian N11.9 Chronic tubulo-interstitial nephritis, unspecified N18.31 Chronic kidney disea se, stage 3a Office Visit 05/18/2023 11:00a [facility] Jerica Stokes N11.9 Chronic tubulo-interstitial nephritis, unspecified N18.31 Chronic kidney disea se, stage 3a D50.9 Iron deficiency anem ia, unspecified E55.9 Vitamin D deficiency , unspecified Office Visit 05/23/2022 11:00a [facility] Jerica Stokes N11.9 Chronic tubulo-interstitial nephritis, unspecified N18.31 Chronic kidney disea se, stage 3a D50.9 Iron deficiency anem ia, unspecified E55.9 Vitamin D deficiency , unspecified Office Visit 05/22/2021 1:30p [facility] Tequila Giles NP N11.9 Chronic tubulo-interstitial nephritis, unspecified N18.30 Chronic kidney disea se, stage 3 unspecified Office Visit 06/08/2020 11:20a [facility] Heather Forbes M.D. N11.9 Chronic tubulo-interstitial nephritis, unspecified N18.3 Chronic kidney disea se, stage 3 (moderate) Office Visit 06/22/2019 10:00a [facility] Heather Forbse M.D. N11.9 Chronic tubulo-interstitial nephritis, unspecified N18.3 Chronic kidney disea se, stage 3 (moderate) Office Visit 05/04/2018 10:20a [facility] Heather Forbes M.D. N11.9 Chronic tubulo-interstitial nephritis, unspecified N18.3 Chronic kidney disea se, stage 3 (moderate) Office Visit 03/13/2017 2:00p [facility] Heather Forbes M.D. N11.9 Chronic tubulo-interstitial nephritis, unspecified N18.3 Chronic kidney disea se, stage 3 (moderate) E78.1 Pure hyperglyceridem ia Office Visit 06/15/2015 1:00p [facility] Heather king M.D. 585.3 Chronic Kidney Disease Stage 3 582.89 Interstitial Nephrit is 530.81 Esophageal Reflux Office Visit 12/15/2014 1:00p [facility] BRENDEN Boyer P 585.3 Chronic Kidney Disease Stage 3 582.89 Interstitial Nephrit is V58.64 [facility] (Current)Us e Of Non-Steroid Antiinflammatories 530.81 Esophageal Reflux Office Visit 07/07/2014 11:40a [facility] Heather high M.D. 585.3 Chronic Kidney Disease Stage 3 582.89 Interstitial Nephrit is V58.64 [facility] (Current)Us e Of Non-Steroid Antiinflammatories 530.81 Esophageal Reflux Office Visit 06/09/2014 1:00p [facility] Matheus ngo 585.3 Chronic Kidney Disease Stage 3 582.89 Interstitial Nephrit is V58.64 [facility] (Current)Us e Of Non-Steroid Antiinflammatories 789.00 Pain Abdominal Unspe c Site Assessments Date Code Description Provider 06/14/2025 N11.9 Chronic tubulo-i nterstitial nephritis, unspecified Heather Heidyna M.D. 06/14/2025 N18.31 Chronic kidney disease, stag e 3a Heatherwoody Forbes M.DLori 05/13/2024 N11.9 Chronic tubulo-i nterstitial nephritis, unspecified RYAN SebastianC 05/13/2024 N18.31 Chronic kidney disease, stag e 3a RYAN SebastianC 05/18/2023 N11.9 Chronic tubulo-i nterstitial nephritis, unspecified [place], Jerica 05/18/2023 N18.31 Chronic kidney disease, stag e 3a [place], Jerica 05/18/2023 D50.9 Iron deficiency anemia, unsp ecified Kike, Jerica 05/18/2023 E55.9 Vitamin D deficiency, unspec ified [place], Jerica 05/23/2022 N11.9 Chronic tubulo-i nterstitial nephritis, unspecified Kike, Jerica 05/23/2022 N18.31 Chronic kidney disease, stag e 3a Kike, Jerica 05/23/2022 D50.9 Iron deficiency anemia, unsp ecified [place], Jerica 05/23/2022 E55.9 Vitamin D deficiency, unspec ified [place], Jerica 05/22/2021 N11.9 Chronic tubulo-i nterstitial nephritis, unspecified Heather Heidyna M.D. 05/22/2021 N11.9 Chronic tubulo-i nterstitial nephritis, unspecified Tequila Giles NP 05/22/2021 N18.30 Chronic kidney disease, stag e 3 unspecified Heather Benjaminadana M.D. 05/22/2021 N18.30 Chronic kidney disease, stag e 3 unspecified Tequila Giles, [employer] CENTRE MANAGER 06/08/2020 N11.9 Chronic tubulo-i nterstitial nephritis, [...] Chronic Kidney Disease Stage 3 Cheryl Palomo, HORSE TRAINER 12/15/2014 582.89 Interstitial Nephritis Cheryl Palomo, HORSE TRAINER 12/15/2014 V58.64 [facility])Use Of Non-Steroid Antiinflammatories Cheryl Palomo, HORSE TRAINER 12/15/2014 530.81 Esophageal Reflux Cheryl liang, HORSE TRAINER 07/07/2014 585.3 Chronic Kidney Disease Stage 3 Heather Kamadana M.D. 07/07/2014 582.89 Interstitial Nephritis Swapn a Kamadana M.D. 07/07/2014 V58.64 [facility])Use Of Non-Steroid Antiinflammatories Heather Kamadana M.D. 07/07/2014 530.81 Esophageal Reflux Heather stevens M.D. 06/09/2014 585.3 Chronic Kidney Disease Stage 3 Doug Klein M.D. 06/09/2014 582.89 Interstitial Nephritis Kenroy Klein M.D. 06/09/2014 V58.64 [facility] ([facility])Use Of Non-Steroid Antiinflammatories Doug Klein M.D. 06/09/2014 789.00 Pain Abdominal Unspec Site S yasmin Klein M.D.
== END 2025-08-02 10:18 | disposition home or self-care (01) ==
LOC: WC 10:17
PROVIDERS: PCP Internal Medicine; Visit Provider Podiatrist Foot & Ankle Surgery
DX: E11.621 Type 2 diabetes mellitus with foot ulcer (principal); L97.422 Non-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 with fat layer exposed; L97.515 Non-pressure chronic ulcer of other part of right foot with muscle involvement without evidence of necrosis
CPT/HCPCS: 11042; 29445

== ENCOUNTER 2025-08-09 14:18 | Outpatient (OUT) | payer OTHER, SELFPAY ==
--- OUTSIDE RECORDS SUMMARY | 2024-03-15 05:40 | XMS_ITS ---
Author Organization The [facility] in [place] Address [address] [place] [address] Care Team Providers Care Rnp Name Role Phone None, Unknown or Primary Care Provider Unavailab Roxanne Rodríguez Unavailable [phone] REASON FOR VISIT splint change, skin check Encounters Encounter Location Date Provider Diagnosis [facility] (PODIATRY) [address] [place] [address] [place] [address] 03/15/2024 Roxanne Segura Plan Of Treatment No Information Progress Notes * Celina GASPAR MDOB: 9 (45 yo F)Acc No.[id number]:03/15/2024 UNLOCKED PROGRESS NOTE Progress Note Patient: Celina DRAKE :?SABINA MckeonCDOB:1980???Age:43 Y ???Sex:FemaleDate:4Phone:[phone]:23 [facility]Pcp:Unknown or None Subjective: * Chief Complaints: * 1 . Splint change, skin check. * Medical History: Objective: * Vitals: Assessment: Plan: * Treatment: * * Electronic signature of Roxanne Segura PA-C on 08/09/2025 at 02:20 PM ESTSign off status: PendingVisit Status:?CANC (Cancelled) * Provider: Brady Segura PA-C Date: 0 03/15/2024 Generated for Printing/Faxing/eTransmitting on:?08/09/2025 02:20 PM EST
--- OUTSIDE RECORDS SUMMARY | 2024-04-14 06:20 | XMS_ITS ---
Author Organization The [facility] in [place] Address [address] [place] [address] Care Team Providers Care Oral Hygienist Name Role Phone None, Unknown or Primary Care Provider Unavailab Roxanne Rodríguez Unavailable [phone] Encounters Encounter Location Date Provider Diagnosis [facility] (PODIATRY) [address] [place] [address] [place] [address] 04/14/2024 Roxanne Segura Plan Of Treatment No Information Progress Notes * Celina GASPAR MDOB: 9 (45 yo F)Acc No.[id number]:04/14/2024 UNLOCKED PROGRESS NOTE Nurse Visit Patient: Rubén Celina YAÑEZ :?SABINA MckeonCDOB:1980???Age:43 Y ???Sex:FemaleDate:4Phone:[phone]:23 [place], [place]-[address]Pcp:Unknown or None Subjective: * Chief Complaints: * * Medical History: Objective: * Vitals: Assessment: Plan: * Treatment: * * Electronic signature of Roxanne Segura PA-C on 08/09/2025 at 02:21 PM ESTSign off status: PendingVisit Status:?CANC (Cancelled) * Provider: Brady Segura PA-C Date: 0 04/14/2024 Generated for Printing/Faxing/eTransmitting on:?08/09/2025 02:21 PM EST
--- OUTSIDE RECORDS SUMMARY | 2025-08-02 10:54 | XMS_ITS | Encounter Summary ---
Author Organization [facility] Address [address], [address] [place] [address] Care Team Providers Care Product Tester Name Role Phone Felipe Adam MD Primary Care Provider [phone] Encounter Details DateTypeDepartmentCare Team (Latest Contact Info)Godduxhqjvm14/29/2025 11:54 AM EDT - 08/02/2025 11:[address] [facility] [address] [place] [address] Stage 3a chronic kidney disease (HCC); Pre-diabetes Discharge Disposition: Home or Self Care Social History Tobacco UseTypesPacks/DayYears UsedDateSmoking Tobacco: NeverPassive Smoke Exposure: NeverSmokeless Tobacco: NeverAlcohol UseStandard Drinks/WeekCommentsNo 0 (1 standard drink = 0.6 oz pure alcohol)[facility] UtilitiesAnswerDate RecordedIn the past 12 months has the [employer], gas, oil, or water [employer] threatened to shut off services in your [...] medical care, and heating?Somewhat hard4PHQ-2AnswerDate RecordedPHQ-9 Total Bykfv474Hunger Vital SignAnswerDate RecordedWithin the past 12 months, [...] steady place to sleep or slept in [facility] (including now)?No05/08/2024Housing Stability Vital SignAnswerDate RecordedIn the last 12 months, was there a time when you were not able to pay the mortgage or rent on time?No11/15/2024In the past 12 months, how many times have you moved where you were living? At any time in the past 12 months, were you homeless or living in a jail (including now)?No11/15/2024Food InsecurityAnswerDate RecordedWithin the past 12 months, you worried that your food would run out before you got the money to buy more.Within the past 12 months, the food you bought just didn't last and you didn't have money to get more.CommentsNoSex and Gender InformationValueDate RecordedSex Assigned at PonitAkkmxx27/13/2025 9:45 AM EDTLegal LbiInhnua15/10/2013 10:13 AM ESTGender PnwdgmswVudues67/05/2021 8:11 AM ESTSexual XcjdwqeksmfLxwtvscq86/05/2021 8:11 AM ESTOccupationIndustryJob Start DateJob End DateNot [...] MG capsule Take 3 capsules by mouth wemdkhl07 famotidine (PEPCID) 20 MG tablet Indications:Gastroesophageal reflux [...] MG tablet Take 1 tablet by mouth gmdyxji5304/19/2022 pregabalin (LYRICA) 300 MG capsule Take 1 capsule by mouth 2 times daily.02/20/2022 Biotin 1000 MCG TABS Take 1 tablet by mouth daily02/26/[address] TABLET ON OR UNDER THE TONGUE EVERY OTHER DAY01/02/2022 sertraline (ZOLOFT) 100 MG tablet Take 2 tablets by mouth daily Currently decreasing this gwrebpvizt07/26/2020 b complex vitamins capsule Take 1 capsule by mouth daily Cholecalciferol (VITAMIN D) 2000 UNITS CAPS capsule Indications:Vitamin D deficiencyTake 1 capsule by mouth daily. 30 capsule 12111/12/2013documented as of this encounter Plan of Treatment Not on file documented as of this encounter Procedures Procedure NamePriorityDate/TimeAssociated DiagnosisCommentsHEMOGLOBIN O9GEdbtqsq 08/02/2025 11:57 AM EDT Pre-diabetes BASIC METABOLIC VPEOAEcilgjo68/29/2025 11:57 AM EDT Stage 3a chronic kidney disease (HCC) Pre-diabetes documented in this encounter Results * Hemoglobin A1C (08/02/2025 11:57 AM EDT)ComponentValueRef RangeTest Method Analysis TimePerformed AtPathologist SignatureHemoglobin A1C5.24.0 - 6.0 % 08/02/2025 11:57 AM EDTMERCY LABORATORIESEstimated Avg Iwxuezz439pu/dL 08/02/2025 11:57 AM EDTMERCY LABORATORIESComment: The ADA and AACC recommend providing the estimated average glucose result to permit better patient understanding of their HBA1c result. Specimen (Source)Anatomical Location / LateralityCollection Method / Volume Collection TimeReceived TimeBloodBLOOD SPECIMEN / Ellijge5808/02/2025 11:57 AM EDT 08/02/2025 11:58 AM EDT Narrative Authorizing ProviderResult TypeResult StatusBilly Back MDCHEMISTRY ORDERABLES Final ResultPerforming OrganizationAddressCity/State/ZIP CodePhone Number [facility] [address] [place] [address], [facility] [phone] [facility] [employer] [address] [place] [address], [facility] [phone] * (ABNORMAL) Basic Metabolic Panel (08/02/2025 11:57 AM EDT)ComponentValueRef RangeTest MethodAnalysis TimePerformed AtPathologist UtejempcrJhcdjd879332 - 144 mmol/L1 11:57 AM [employer] [facility] LABPotassium4.33.7 - 5.3 mmol/L1 11:57 AM [employer] [facility] BVEUiauozzy61919 - 107 mmol/L1 11:57 AM [employer] [facility] ZYDEV97368 - 31 mmol/L 08/02/2025 11:57 AM [employer] [facility] LABAnion Gap99 - 17 mmol/L 08/02/2025 11:57 AM [employer] [facility] HIAMpfvwef2823 - 99 mg/dL 08/02/2025 11:57 AM [employer] [place] [facility] AGUDZQ000 - 20 mg/dL08/02/2025 11:57 AM [employer] [place] [facility]ARD LABCreatinine1.5(H)0.5 - 0.9 mg/dL08/02/2025 11:57 AM [employer] [facility] [facility] ([facility])ARD LABEst, Glom Filt Rate43(L)>60 mL/min/1.73m2 08/02/2025 11:57 AM [employer] ([facility])ARD LABComment: ? These results are not intended [...] secretion. Calcium9.78.6 - 10.4 mg/dL08/02/2025 11:57 AM [employer] [place] [facility] Specimen (Source)Anatomical Location / LateralityCollection Method / Volume Collection TimeReceived TimeBloodBLOOD SPECIMEN / Vhvdjfr0108/02/2025 11:57 AM EDT 08/02/2025 11:58 AM EDT Narrative Authorizing ProviderResult TypeResult StatusBilly Back MDCHEMISTRY ORDERABLES Final ResultPerforming OrganizationAddressCity/State/ZIP CodePhone Number [facility] [employer] [facility] [address] [place] [id number], [facility] [phone] documented in this encounter Visit Diagnoses Diagnosis Stage 3a chronic kidney disease (HCC) Pre-diabetes Other abnormal glucose documented in this encounter Additional Health Concerns InfectionOnset DateLast IndicatedResolved TimeMRSA Comment:Blood and spine 05/16/2016MDRO (multi-drug resistant organism) Comment:E. Coli urine 05/02/2022/2documented as of this encounter Care Teams Team MemberRelationshipSpecialtyStart DateEnd Date Back, MD Felipe [address] [place] [address] PCP - GeneralInternal Medicine11/14/11documented as of this encounter
--- OUTSIDE RECORDS SUMMARY | 2025-08-03 10:00 | XMS_ITS | Encounter Summary ---
Author Organization D[facility] Address [address], [address] [place] [address] Care Team Providers Care Grape Grower Name Role Phone Felipe Adam MD Primary Care Provider [phone] Reason for Visit * ReasonCommentsChronic Kidney DiseaseStage 3prediabeticGastroesophageal Reflux Peripheral NeuropathySleep ApneaOn cpapYeast InfectionPatient currently has yeast infection and thrush from being on ATB. Encounter Details DateTypeDepartmentCare Team (Latest Contact Info)Gikajnvnjrn00/30/2025 11:00 AM EDTOffice Visit [facility] Primary Care of [address] [phone] Felipe Adam MD [address] [place] [id number] Pre-diabetes (Primary Dx); Depression with anxiety; Vitamin D deficiency; Gastroesophageal reflux disease without esophagitis; Chronic renal impairment, stage 3b; BUCK on CPAP; Restless legs; Chronic constipation; Pure hypertriglyceridemia Social History Tobacco UseTypesPacks/DayYears UsedDateSmoking Tobacco: NeverPassive Smoke Exposure: NeverSmokeless Tobacco: NeverAlcohol UseStandard Drinks/WeekCommentsNo 0 (1 standard drink = 0.6 oz pure alcohol)[facility] UtilitiesAnswerDate RecordedIn the past 12 months has the [employer], gas, oil, or water [employer] threatened to shut off services in your [...] medical care, and heating?Somewhat hard05/08/2024HQ-2AnswerDate RecordedPHQ-9 Total Nmgon109Hunger Vital SignAnswerDate RecordedWithin the past 12 months, [...] steady place to sleep or slept in [facility] (including now)?No05/08/2024Housing Stability Vital SignAnswerDate RecordedIn the last 12 months, was there a time when you were not able to pay the mortgage or rent on time?No11/15/2024In the past 12 months, how many times have you moved where you were living? At any time in the past 12 months, were you homeless or living in a group home (including now)?No11/15/2024Food InsecurityAnswerDate RecordedWithin the past 12 months, you worried that your food would run out before you got the money to buy more.Within the past 12 months, the food you bought just didn't last and you didn't have money to get more.CommentsNoSex and Gender InformationValueDate RecordedSex Assigned at KczhaWiekfv85/13/2025 9:45 AM EDTLegal XlnVfvviv40/10/2013 10:13 AM ESTGender DablfphrMndifm21/05/2021 8:11 AM ESTSexual LoegjeitkduTfhivqfi52/05/2021 8:11 AM ESTOccupationIndustryJob Start DateJob End DateNot on fileNot on fileNot on fileNot on filedocumented as of this encounter Last Filed Vital Signs Vital SignReadingTime TakenCommentsBlood Fwyorlnu289/7810 10:52 AM EDT Iaqvq993208/03/2025 10:52 AM EDTTemperature--Respiratory Rate--Oxygen Saturation-- Inhaled Oxygen Concentration--Cortlh93.8 kg (220 lb)08/03/2025 10:52 AM EDT Height--Body [...] Overview: Added automatically from request for surgery [id number] 09/16/2017: Basal cell carcinoma of skin of [...] performed by Keenan Lozano MD at [facility] [place] 2006: CHOLECYSTECTOMY 08/25/2018: PIC POWERPIC SINGLE Comment: 10/2017: HYSTERECTOMY (CERVIX STATUS UNKNOWN) No date: PARTIAL HYSTERECTOMY (CERVIX NOT REMOVED) 03/19/2017: [place] NEUROPLASTY &/TRANSPOS MEDIAN NRV CARPAL TUNNE; Left Comment: CARPAL TUNNEL RELEASE performed by Zev Martínez DO at [facility] OR 03/05/2017: [place] NEUROPLASTY &/TRANSPOS MEDIAN NRV CARPAL TUNNE; Right Comment: CARPAL TUNNEL RELEASE performed by Zev Martínez DO at [facility] OR 08/23/2018: [place] OFFICE/OUTPT VISIT,PROCEDURE ONLY; N/A Comment: LUMBAR EXPLORATION,I&D OF ABSCESS T-4 AND T5, SPINE TABLE C-ARM performed by Basilio Mccray MD at [facility] OR No date: SPINE SURGERY 1984: TONSILLECTOMY [...] LabRoutine Pre-diabetes Expected: 02/01/2026 (Approximate), Expires: 08/03/2026Hemoglobin J1JLkbQdwakpr Pre-diabetes Expected: 02/01/2026 (Approximate), Expires: 08/03/2026Lipid PanelLabRoutine [...] Team MemberRelationshipSpecialtyStart DateEnd Date Back, MD Felipe [address] [place], [place] [id number] PCP - GeneralInternal Medicine11/14/11documented as of this encounter
--- OUTSIDE RECORDS SUMMARY | 2025-08-09 14:21 | XMS_ITS | Encounter Summary ---
Author Organization Denton Sullivan [facility] Address [address], [address] [place] [address] Care Team Providers Care Prepress Proofer Name Role Phone Felipe Adam MD Primary Care Provider [phone] Encounter Details DateTypeDepartmentCare Team (Latest Contact Info)Xpqyzwfbqwe05/22/2025Orders Only [facility] Primary Care of [place] [address] [place] [address] Provider, MD Dimitris Social History Tobacco UseTypesPacks/DayYears UsedDateSmoking Tobacco: NeverPassive Smoke Exposure: NeverSmokeless Tobacco: NeverAlcohol UseStandard Drinks/WeekCommentsNo 0 (1 standard drink = 0.6 oz pure alcohol)[facility] UtilitiesAnswerDate RecordedIn the past 12 months has the electric, gas, oil, or water company threatened [...] medical care, and heating?Somewhat hard05/08/2024HQ-2AnswerDate RecordedPHQ-9 Total Ngrjn278Hunger Vital SignAnswerDate RecordedWithin the past 12 months, [...] steady place to sleep or slept in [place] (including now)?No05/08/2024Housing Stability Vital SignAnswerDate RecordedIn the [...] more.CommentsNoSex and Gender InformationValueDate RecordedSex Assigned at OyftxOgwhsm22/13/2025 9:45 AM EDTLegal CwxIwvawg14/10/2013 10:13 AM ESTGender JhrexlwqBcaxkw04/05/2021 8:11 AM ESTSexual FdijhmjmdwqIwyivfdw52/05/2021 8:11 AM ESTOccupationIndustryJob Start DateJob End DateNot on fileNot on fileNot on fileNot on filedocumented as of this encounter Plan of Treatment Not on file documented as of this encounter Procedures Procedure NamePriorityDate/TimeAssociated DiagnosisCommentsX-RAY FOOT 3+VW Eoratsh2807/25/2025 4:26 PM EDTdocumented in this encounter Results * X-RAY FOOT 3+VW (07/25/2025 4:26 PM EDT) Narrative Authorizing ProviderResult TypeResult StatusHistorical Provider [facility] Final Result documented in this encounter Visit Diagnoses Not on filedocumented in this encounter Additional Health Concerns InfectionOnset DateLast IndicatedResolved TimeMRSA Comment:Blood and spine 05/16/2016MDRO (multi-drug resistant organism) Comment:E. Coli urine 05/02/2022/2documented as of this encounter Care Teams Team MemberRelationshipSpecialtyStart DateEnd Date Back, MD Felipe [address] [place] [address] PCP - GeneralInternal Medicine11/14/11documented as of this encounter
--- OUTSIDE RECORDS SUMMARY | 2025-08-09 14:21 | XMS_ITS | Clinical Summary ---
Author Organization [facility] Address [address] [place] [address] Care Team Providers Care Pressurised Container Filler Name Role Phone Felipe Adam MD Primary Care Provider [phone] Allergies Active AllergyReactionsCriticalityNoted DateCommentsChlorhexidineRashLow 03/03/2023TopiramateOther (See Comments)10/29/2023 [...] InformationValueDate RecordedSex Assigned at BirthNot on fileLegal FllOnxmjh85/12/2014 10:22 AM EDTGender NwthkxstCpwjcy23/07/2025 9:28 AM ESTSexual LfyictwgfmgWlzkynjt09/07/2025 9:28 AM EST Last Filed Vital Signs Vital SignReadingTime TakenCommentsBlood Ibuzzctk090/8703/03/2023 2:44 PM EDT Pimcv029903/03/2023 2:44 PM AZYBosvqwjydku79.8 ??C (98.3 ??F)10/11/2024 9:42 AM ESTRespiratory Qefc037801/06/2023 5:48 PM EDTOxygen Ozgboexkol71%01/06/2023 4:22 PM EDTInhaled Oxygen Concentration--Pwzfaw96.8 kg (209 lb)10/11/2024 9:42 AM EST Yctwew119.5 cm (5' 2 )10/11/2024 9:42 AM ESTBody Mass Index38.23010/11/2024 9:42 AM EST Plan of Treatment DateTypeDepartmentCare Team (Latest Contact Info)Fnryfvfpxtn74/08/2026 10:30 AM ESTOffice Visit [facility] [address] [facility] [place] [address] Dimas Adair MD [address] [place] [address] Health MaintenanceDue DateLast DoneCommentsCT Wmzkoypltets1979Fecal DNA 1979Fecal occult blood test (FOBT,FIT)1979Flexible sigmoidoscopy 1979MMR Vaccines (1 of 1 - Standard series)1980Depression Screening/Follow-Up (PHQ-2/9)1991Hepatitis C Mdoudgfsu45/25/1997Hepatitis B Vaccines (1 of 3 - 19+ 3-dose series)05/29/19980808Zphdxwzzf27/25/2019Pap Smear Cervical Cancer Pfjwyhjuc82/16/2022HPV/Mpepsk9503/20/2022 03/20/2017Wellness Visit/05/2022Tetanus/Diphtheria/Pertussis (2 - Td or Tdap)/02/2014COVID-19 Vaccine (1 - season)2025 Influenza Vaccine (#1)06/05/20256016Tkgnyteabsk76Colorectal Cancer Screening/Wobcuctmze33/07/2028Zoster Vaccines (1 of 2)2029RSV Vaccines (1 - 1-dose 75+ series)2054HIV VqpprqxmtTtqvldzkv64/16/2018HIB VaccinesAged OutNo longer eligible based on patient's age to complete this topicHPV Vaccines Aged OutNo longer eligible based on patient's age to complete this topic Hepatitis A VaccinesAged OutNo longer eligible based on patient's age to complete this topicIPV VaccinesAged OutNo longer eligible based on patient's age to complete this topicMeningococcal ACWY VaccineAged OutNo longer eligible based on patient's age to complete this topicMeningococcal B VaccineAged OutNo longer eligible based on patient's age to complete this topicPneumococcal VaccineAged OutNo longer eligible based on patient's age to complete this topicRotavirus VaccinesAged OutNo longer eligible based on patient's age to complete this topic Procedures Procedure NamePriorityDate/TimeAssociated DiagnosisCommentsHIV 1/2 SCREEN (4TH GENERATION)Xtpixbo6810/20/2017 5:25 PM EST Encounter for general adult medical examination without abnormal findings THINPREP PAP JFAVYXaktdpu71/16/2017 12:00 AM EDT HIGH RISK HPV WITH GENOTYPE 16,56Cpgyeie26/16/2017 12:00 AM EDT Encounter for general adult medical examination without abnormal findings from Last 3 Months or Most Recently Relevant to Health Maintenance Results * HIV Antibody (HIV1/HIV2) (10/20/2017 5:25 PM EST)ComponentValueRef RangeTest MethodAnalysis TimePerformed AtPathologist SignatureHIV 1-2 ScreenNegative Oanmaavz42/17/2018 9:47 AM [facility] LABSpec[facility] (Source)Anatomical Location / LateralityCollection Method / VolumeCollection TimeReceived TimeBloodBLOOD SPECIMEN / Upentwr3010/20/2017 5:25 PM EST10/20/2017 10:58 PM EST Narrative [facility] - 10/21/2017 9:47 AM EST Test performed using [employer] Immunodiagnostic system. Authorizing ProviderResult TypeResult StatusMichuyen Parry MDLAB BLOOD ORDERABLESFinal ResultPerforming OrganizationAddressCity/State/ZIP CodePhone Number [facility] [address] [place] [address] * High Risk HPV with Genotype 16,18 (03/20/2017 12:00 AM EDT)ComponentValueRef RangeTest MethodAnalysis TimePerformed AtPathologist SignatureHPV 16Negative Jcocofdv22/28/2017 2:01 PM [facility] 18Negative Susjonfk27/28/2017 2:01 PM [facility] LABHPV, Other HR HbpzmJrjkpbbeCwccprsq59/28/2017 2:01 PM [facility] Specimen (Source)Anatomical Location / LateralityCollection Method / Volume Collection TimeReceived TimePap, Liquid BasedCERVIX UTERI STRUCTURE / Unknown 9:32 PM EDT Narrative [facility] - 04/01/2017 2:01 PM EDT Assay performed using [employer] Twin 4800 system utilizing Real-Time PCR to amplify target HPV DNA. This system specifically identifies HPV16 and HPV18 while concurrently detecting the other twelve high risk types (31,33,35,39,45,51,52,56,58,59,66,68). Authorizing ProviderResult TypeResult StatusCentral [facility] Psychiatric Centermalcom Pinky Richard DOBODY FLUIDS AND STOOLS ORDERABLESFinal ResultPerforming OrganizationAddress City/State/ZIP CodePhone Number [facility] [address] [place] [address] * Thinprep Pap Smear (03/20/2017 12:00 AM [...] HPV DNA. This system specifically identifies HPV16 ppwLCN29 while concurrently detecting the other twelve high risk types(31,33,35,39,45,51,52,56,58,59,66,68). Completed by on 2017-04-02 Electronically Signed By Arielle NEFF (ASCP) , [employer] (Case signed 03/30/2017) The Papanicolaou smear is a screening tool, and like any screen, has an inherent false negative rate. ??Interpretation of results should be made in the context of patient history and clinical findings. Authorizing ProviderResult TypeResult StatusShanice Richard DO PATHOLOGY/CYTOLOGY ORDERABLESFinal ResultPerforming OrganizationAddress City/State/ZIP CodePhone Number [place] from Last 3 Months or Most Recently Relevant to Health Maintenance Insurance * Guarantor: Celina Gasparcomelodie TypeRelation to PatientDate of BirthPhone Billing AddressPersonal/OvgpydMnnm54/ [phone] (Home) [address] [place] [address] Care Teams Team MemberRelationshipSpecialtyStart DateEnd Date Back, MD Felipe [address] [place] [address] PCP - GeneralInternal Medicine03/26/15
--- OUTSIDE RECORDS SUMMARY | 2025-08-09 14:21 | XMS_ITS | Encounter Summary ---
Author Organization [facility] Address [address] [place] [address] Care Team Providers Care Cook Fruit Name Role Phone Alcides Adam MD Primary Care Provider [phone] Reason for Visit * ReasonCommentsMed Refill Encounter Details DateTypeDepartmentCare Team (Latest Contact Info)Zzhpvjingph49/25/2025Refill [facility] [address] [facility] [address] [place] [address] Janel Allen NP [address] [facility] [address] [address] Idiopathic progressive polyneuropathy; Non-seasonal allergic rhinitis due [...] Plan of Treatment DateTypeDepartmentCare Team (Latest Contact Info)Hcctikwttvq16/19/2025 1:00 PM ESTOffice Visit [facility] [address] [facility] [address] [place] [phone] Jennie Barajas APRN-MOBILE PATROL OFFICER [address] [facility] [place], [place] [phone] 08/29/2025 11:45 AM ESTOffice Visit [facility] [address] [facility] [address] [place] [phone] Nash Block MD [address] [facility] [address] [phone] documented as of this encounter Visit Diagnoses Diagnosis Idiopathic progressive polyneuropathy Non-seasonal allergic rhinitis due to pollen documented in this encounter Care Teams Team MemberRelationshipSpecialtyStart DateEnd Date Back, MD Alcides [address] [place] [address] PCP - GeneralFamily Medicine12/08/24documented as of this encounter
--- OUTSIDE RECORDS SUMMARY | 2025-08-09 14:21 | XMS_ITS | Clinical Summary ---
Author Organization [facility] Address [address] [place] [address] Phone Care Team Providers Care Anaesthetic Technician Name Role Phone Unavailable Primary Care Provider Unavailabl e Social History Tobacco UseTypesPacks/DayYears UsedDateSmoking Tobacco: Never Assessed CommentsUnknownSex and Gender InformationValueDate RecordedSex Assigned at Not on fileLegal JwiVnfmnt90/25/2022 12:57 PM ESTGender IdentityNot on file Sexual OrientationNot on file Plan of Treatment Not on file
--- OUTSIDE RECORDS SUMMARY | 2025-08-09 14:21 | XMS_ITS | Clinical Summary ---
[facility] Organization [facility] Address [address] [place] [address] Care Team Providers Care Shed Boss Name Role Phone BackAlcides MD Primary Care Provider Allergies No known active allergies Medications MedicationSigDispense [...] 08/19/2017Active Active Problems ProblemNoted DateDiagnosed DateBasal cell vrcjyqjax08/26/2017 Overview (09/29/2017): Added automatically from request for surgery [id number] Basal cell carcinoma of skin of face09/16/2017Neoplasm of uncertain behavior of skin Social History Tobacco UseTypesPacks/DayYears UsedDateSmoking Tobacco: NeverSmokeless Tobacco: NeverAlcohol UseStandard Drinks/WeekCommentsNo0 (1 standard drink = 0.6 oz pure alcohol)CommentsUnknownSex and Gender InformationValueDate RecordedSex Assigned at BirthNot on fileLegal AecUcgqsd10/06/2017 7:26 PM ESTGender Identity Vffrtp3706/25/2017 9:30 AM EDTSexual OrientationNot on file Last Filed Vital Signs Vital SignReadingTime TakenCommentsBlood Agjyblpr242/78011/24/2017 12:00 PM EST Oojbc628811/24/2017 12:00 PM PPMVzhflczgdej43.6 ??C (97.9 ??F)11/24/2017 12:00 PM ESTRespiratory Vfqw767610/09/2017 11:44 AM ESTOxygen Pucxurlwbl48%10/09/2017 11:44 AM ESTInhaled Oxygen Concentration--Gwlclw634.5 kg (221 lb 8 oz)02/26/2022 2:01 PM IMTWlffnj738.8 cm (5' 2.5 )02/26/2022 2:07 PM EDTBody Mass Index39.87 02/26/2022 2:01 PM EDT Plan of Treatment Health MaintenanceDue DateLast DoneCommentsHEPATITIS C VIRUS VDVUPDQVQ1979 HIV SCREENING UMTLZUWSZC00/25/1994HEP B VACCINE (1 of 3 - 19+ 3-dose series) 1998CERVICAL CANCER SCREENING VDOVUZXDAO91/25/2000LIPID SCREENING 2019MAMMOGRAM SCREENING WWJTOLTMRY64/25/2019COLORECTAL CANCER SCREENING WYAHAEUYTN83/25/8311KRQRXNZ26COVID-19 VACCINE ( - season)2025INFLUENZA VACCINE (#1)2025TDAP (ADULT)Bamfopcte36/05/2014 PNEUMOCOCCAL VACCINE SERIESAged OutNo longer eligible based on patient's age to complete this topic Insurance Care Teams Team MemberRelationshipSpecialtyStart DateEnd Date Back, MD Alcides [address] [place] [address] PCP - GeneralInternal Fnnjkoow83/27/17
--- OUTSIDE RECORDS SUMMARY | 2025-08-09 14:21 | XMS_ITS | Continuity of Care Document ---
Author Organization [facility] Address [address] [place] [id number] Phone [phone] Care Team Providers Care Patient Navigator Name Role Phone Back, Alcides MELENDREZ Care Team Information Picker Packer + [phone] Problems Active Problems Provider Date Chronic kidney [...] Range N ote .Urine Protein/Creat. Random 06/12/2025 [place], [place] [phone].Urine Protein Random<4.Urine Creatinine Ginwzq09.4.V Ipth-Vitamin D006/12/2025[place], [place] [phone].Ipth40.0.Vitamin D, 25 Ytmdwhb17.2.Renal Panel06/12/2025[place], [place] [phone].Albumin4.2.Calcium9.2.Carbon Etxyceb07.Xzsbrbxw30.Phosphorus3.9 .Potassium4.5.Tyspkh768.BUN23.GFR Rgpnejgjp78Hfsf55.Creatinine-LC1.3.Urine Protein/Creat. Phgjhi9805/10/2024[place], [place] [phone].Urine Protein Random9.Urine Creatinine Ytoeru058.0.Urine Prot/Creat Ratio0.07.Kcbpsgkvz76/06/2024[place], [place] [phone].Magnesium2.2.Urinalysis-Zmpsdoe9805/10/2024[place], [place] [phone] Specific Gravity1.020Ua PH Test Strip5.0Ua ColoryellowUa AppearanceclearUa ProteintraceUa GlucosenegativeUa KetonesnegativeUa Bilirubin negativeUa UrobilinogennormalUa NitritenegativeUa Occult Bloodnegative.Renal Panel05/10/2024[place], [place] [phone].Albumin4.2.Calcium9.2.Carbon Agtssnd92.Sutrnbwn011.Phosphorus3.8 .Potassium4.0.Adgcai947.BUN19.GFR Tzduijyvj88Zojp47.Creatinine-LC1.3.Renal Panel 05/17/2023[place], [place] [phone].Albumin4.1.Calcium9.5.Carbon Avypoiq24.Qzbeknvi538.Phosphorus3.0 .Potassium4.3.Adlcpv753.BUN17.GFR >56Yfpw23.Creatinine-LC1.1.Urine Protein/Creat. Xeaeen2005/17/2023[place], [place] [phone].Urine Protein Qchiwx11.Urine Creatinine Ieeikq241.1.Urine Prot/Creat Ratio0.07.Ipth05/17/2023[place], [place] [phone].Ipth47.1.Vitamin D, 25 Pbgfyzn4005/17/2023[place], [place] [phone].Vitamin D, 25 Dkfowwo42.1.Urine Protein/Creat. Aplbfw0605/20/2022 [place], [place] [phone].Urine Protein Random7.Urine Creatinine Akcwju98.1.Urine Prot/Creat Ratio0.07.Tibc-LC05/20/2022[place], [place] [phone].Tibc-LC263.Tgqhxcty05/16/2022[place], [place] [phone].Lcckwedv727.Iron05/20/2022[place], [place] [phone].Iron48.Transferrin-LC05/20/2022[place], [place] [phone].Transferrin-LC280.T-Sat-LC05/20/2022[place], [place] [phone].T-Sat-LC0.18.V Ipth-Vitamin D005/20/2022[place], [place] [phone].Ipth39.91.Vitamin D, 25 Qenaenj33.3.Hsmmhipiy21/16/2022[place], [place] [phone].Magnesium2.1.Hemoglobin And Pkjuqmaxur22/16/2022[place], [place] [phone].Hemoglobin Blood11.1.Djbgexpzez51.3.Renal Panel05/20/2022[place], [place] [phone].Albumin4.4.Rsctcti75.0.Carbon Fyymucr35.Brmvwcmk878.Phosphorus3.8 .Potassium4.3.Qswlsh349.BUN18.AGL97Ojbm45.GFR Fapybjolr24Nvkm62.Creatinine-LC 1.13.Renal Panel (Other Labs)05/21/2021[place], [place] [phone].Albumin4.2.Calcium9.2.Carbon Tpbankr53.Ajvpvflt104.Creatinine-LC 1.18.Phosphorus3.7.Zmgmax973.BUN19.DEX42Mecl40.Potassium4.2.Urine Protein/Creat. Xsinhi9705/21/2021[place], [place] [phone].Urine Protein Random7.Urine Creatinine Wjdvei449.7.Magnesium 05/21/2021[place], [place] [phone].Magnesium2.2.Urinalysis-Qjxicdc8105/21/2021[place] [phone] Specific Gravity1.020Ua PH Test Strip5.0Ua ColorYELLOWUa AppearanceCLEARUa ProteinTRACEUa GlucoseNEGATIVEUa KetonesNEGATIVEUa UrobilinogenNORMALUa Occult BloodNEGATIVE.Ua05/25/2020[place], [place] [phone] AppearanceclearUa Bilirubin-Ua Blood-Ua ColoryellowUa Glucose 100mg/dlUa Leuko-Ua Nitrite-Ua PH Test Strip6.0Ua Protein-Ua Specific [place] 1.020Ua Urobilinogen-.Urine Protein/Creat. Dykuwp3605/25/2020[place], [place] [phone].Urine Protein Random8.Urine Creatinine Hkwtnk880.2.Urine Prot/Creat Ratio0.08.Renal Panel05/25/2020[place] [phone].Albumin4.4.Hqwjxnr18.1.Carbon Pxctarq86.Esqfxcgi315.Creatinine-LC 1.37.Dzkcxboqpy73.Nmnikv391.BUN24.GFR-EJ23Kcyj43.Potassium4.6.Renal Panel 06/17/2019[place], [place] [phone].Albumin4.3.Wfxtpxd40.4.Carbon Cvvvjqk11.Esyjfzze059.Creatinine-LC 1.27.Phosphorus3.0.Snjscp582.BUN18.GFR-FS54Pxsl69.Potassium3.8.Ua06/17/2019[place] [phone] AppearanceHAZYUa Bacteria1+Ua BilirubinNEGUa BloodNEGUa Color YELLOWUa Epithelial Cells QL2-5Ua GlucoseNEGUa KetonesNEGUa LeukoNEGUa Nitrite NEGUa PH Test Strip6.0Ua ProteinTRACEUa Specific Gravity1.025Ua Urobilinogen NORMALUa WBC0-2.Urine Protein/Creat. Wguzmq9706/17/2019[place], [place] [phone].Urine Protein Rsbloh83.Urine Creatinine Pbdhku818.2.Urine Prot/Creat Ratio0.08.Ipxstuwwk12/13/2019[place] [phone].Magnesium2.3.Hemoglobin And Prpbrmubpp03/13/2019[place], [place] [phone].Hemoglobin Blood12.1.Jodaiymrhg73.4.Renal Panel -LC04/14/2018 [place] [phone].Albumin3.7.Calcium8.9.Carbon Fxuiwav91.Usocpyht294.Creatinine-LC 1.28.Phosphorus3.6.Panykk073.BUN19.GFR-HZ99Kjbh40.Potassium4.1.Urine Protein/Creat. Ferwsn4804/14/2018[place] [phone].Urine Protein Random7.Urine Creatinine Wyrggp925.7.Urine Prot/Creat Ratio0.07.CBC W/Iugwjnhwedtk60/11/2018[place] [phone].White Blood Count8.6.Red Blood Count4.40.Hemoglobin Blood13.3 .Cvsbgvtiaz26.4MCH (Corpuscular Hemoglobin)30.2MCHC (Corpuscular Hemog Conc)33.7 RDW15.6.Platelet Count Pffyi358Yqygsmdxofm94Ocnea Zraroswhhnb47Tmoscxgzz3Zyfns Body Vhdgynksypm7Wxkvrtaga %1Absolute Basophils0.10Absolute Eosinophils0.20 Absolute Lymphocytes2.70Absolute Monocytes0.50.Ipth04/14/2018[place], [place] [phone].Ipth63.26Eoip0111/18/2017[facility], Abdomen, W/ ContrastSEE KZTQDNVmjl70/14/2018[facility], Abdomen, W/ ContrastCORTICAL CYST L KIDY.Urinalysis-Wtblhtx1211/17/2017 [facility] [phone] UrineNO SIGNIFICANT H.Urinalysis-Kpxggev2011/17/2017[facility] [phone] Specific Gravity1.014Ua PH Test Strip6.0Ua ColorYELLOWUa AppearanceHAZYUa WBC6Ua ProteinNEGUa GlucoseNEGUa KetonesNEGUa BilirubinNEGUa Urobilinogen<2.0Ua NitriteNEGUa Occult BloodMOD.CMP11/17/2017[facility] [phone].Albumin3.1.Alt18.Calcium8.6.Carbon Qczojdn43.Zxvmobbs015 .Creatinine-LC1.13.Glucose Opdjk649.Alkaline Phos78.Potassium3.7.Protein-Total 6.8.Xxzzik631.Ast7.BUN17.GFR Lpmovqzlo61Ksqp03.Urine Prot/Creat Ratio02/17/2017 [place] [phone].Urine Prot/Creat Ratio0.07Miscellaneous Other02/17/2017[place], [place] [phone] Test - Put Test In Ordercompleted.Renal Panel -LC02/17/2017 [place] [phone].Albumin4.1.Calcium9.4.Carbon Wupezzo11.Gckcymhj668.Creatinine-LC 1.31.Phosphorus3.4.Veeyfw955.BUN21.GFR-CS61Jssp91.Potassium4.1.BMP W/Egfr-LC 08/07/2016[facility] [phone].Potassium4.3.Urfmxjle850.Carbon Fxmpucv07.Calcium9.5 .Glucose Qsdzq914.GFR-GY03Wwfv52.Creatinine-LC1.17.BUN16.Hemoglobin A1c-LC 08/07/2016[facility] [phone].Hemoglobin M4x-JI4.1.Lipid Panel08/07/2016[facility] [phone].Ogoazxcwgwa994.Cholester/HDL Ratio6.2High Density Imqwxeyuksv02 .LDL/HDL Ratio79.LDL Bnwtbtladds537.Yrrjgbfvgwqhn868.CBC W/O Differential 08/07/2016[facility] [phone].Qevbmwvvqk61.1.Hemoglobin Blood12.6.Platelet Count Ezbko611.Red Blood Count4.27YWD98.2.White Blood Count7.6MCH (Corpuscular Hemoglobin)29.8MCHC (Corpuscular Hemog Conc)34.1Urine Lcnfqzl9006/08/2015[place], [place] [phone] Urine Routinesee report.Urinalysis-Wfghvog1506/08/2015[place] [phone] Specific Gravity1.020Ua PH Test Strip5.0Ua ColoryellowUa AppearanceclearUa ProteinnegativeUa GlucosenegativeUa BilirubinnegativeUa UrobilinogennormalUa Nitritenegative.Urine Protein/Creat. Hvihxk2806/08/2015[place], [place] [phone].Urine Protein Flvjkr96.Urine Creatinine Jizrhn815.4.Urine Prot/Creat Ratio0.05.Renal Panel06/08/2015[place], [place] [phone].Albumin4.0.Calcium8.9.Carbon Ueqqzoz48.Prxgryot325.Creatinine-LC 1.29.Phosphorus3.0.Potassium3.6.Eeckla627.BUN14.GFR-RT12Wjwk45.Hemoglobin And Hyxpbocoie33/04/2015[place], [place] [phone].Hemoglobin Blood12.8.Jquujucapo56.2.Ua12/29/2014[place], [place] [phone] AppearanceclearUa BilirubinnegativeUa BloodtraceUa Coloryellow Ua Epithelial Cells QL2 to 5Ua GlucosenegativeUa LeukonegativeUa Nitritenegative Ua PH Test Strip5.0Ua ProteinnegativeUa RBC0 to 2Ua Specific Gravity1.020Ua Urobilinogennormal.Renal Panel12/29/2014[place], [place] [phone].Albumin4.1.Calcium9.7.Carbon Woywylj93.Srumigad157.Creatinine-LC 1.50.Phosphorus4.2.Potassium4.1.Uapfnt940.BUN18.GFR-NU80Tjob50.Urine Protein/Creat. Ixybap8512/29/2014[place], [place] [phone].Urine Protein Random6.Urine Creatinine Ghxsgu690.0.Urine Prot/Creat Ratio0.05.Renal Panel12/06/2014[place] [phone].Albumin4.0.Calcium9.2.Carbon Mqgqguw63.Stzodtfd112.Creatinine-LC 1.32.Phosphorus3.0.Potassium4.3.Evtsis374.BUN17.GFR-ME96Wizc16.Urine Protein/Creat. Svhfhe8512/06/2014[place], [place] [phone].Urine Protein Random7.Urine Creatinine Ocpiin868.8.Urine Prot/Creat Ratio0.04.Ua12/06/2014[place] [phone] AppearanceclearUa Bacteria1+Ua BilirubinnegativeUa BloodtraceUa ColoryellowUa Epithelial Cells QL2 to 5Ua GlucosenegativeUa LeukonegativeUa NitritenegativeUa PH Test Strip6.0Ua ProteinnegativeUa RBC2 to 5Ua Specific Gravity1.020Ua Urobilinogennormal.Complement C306/13/2014[place], [place] [phone].Complement C3140.Qrqhciyny56/09/2014[place] [phone].Magnesium2.3.Fdrrpct3906/13/2014[place] [phone].Calcium9.1.Dahhhbfakv63/09/2014[place], [place] [phone].Phosphorus3.8.Urine Protein 24HR06/13/2014[place], [place] [phone].Urine Protein Total 24H63.Urinalysis-Rfvqkhi7606/13/2014[place] [phone] Specific Gravity1.015Ua PH Test Strip6.0Ua ColorYELLOWUa AppearanceCLEARUa ProteinNEGATIVEUa GlucoseNEGATIVEUa BilirubinNEGATIIVEUa UrobilinogenNORMALUa NitriteNEGATIVE.V Ipth-Vitamin D006/13/2014[place] [phone].Ipth49.31.Vitamin D, 25 Qwmchup11.9.Anca Panel-LC06/13/2014[place], [place] [phone].Anca-C30.Anca-P7.Urine Protein Elect Ran06/13/2014[place] [phone] InterpretationNORMAL.GBM Antibody-LC06/13/2014[place], [place] [phone].Sifg-HMU-FO8.Complement Total (CH50)06/13/2014[place] [phone].Complement Total (CH50)115.Complement C406/13/2014[place] [phone].Complement C429.Ipth06/13/2014[place] [phone].Ipth49.31.Lipid Panel06/13/2014[place] [phone].Ulduwpxtwbs22.Cholester/HDL Ratio5.6High Density Tarobhpodrg02 .LDL/HDL Ratio58.LDL Qheournephj074.Uetnwputrdbbv855.Immunofixation-Urine 06/13/2014[place] [phone].Immunofixation-UrineNEGATIVE.Vitamin D, 25 Blzgqcm9106/13/2014[place] [phone].Vitamin D, 25 Ukqyqko53.9.Slyrqlezrqsc62/09/2014[place] [phone].Cryoglobulin0.Hepatitis B-Surface Rcxeapp8406/13/2014[place] [phone].Hepatitis B-Surface AntigenNON REACTIVE.Hepatitis C006/13/2014 [place] [phone].Hepatitis CNON REACTIVE.Immunofixation-Serum06/13/2014[place] [phone].Immunofixation-SerumNEGATIVE.Hemoglobin And Obeuuzwmys48/09/2014 [place] [phone].Hemoglobin Blood13.0.Fdxsygycta83.9.Urine Eosinophils Random 06/13/2014[place] [phone].Urine Eosinophils RandomNONE SEEN.BUN06/13/2014[place], [place] [phone].BUN18.Creatinine-LC06/13/2014[place], [place] [phone].Creatinine-LC1.27.GFR-LC06/13/2014[place] [phone].GFR-FH97Yzfh46.Hkukhp8506/13/2014[place] [phone].Lspusu892.Nrdhkevdr39/09/2014[place] [phone].Potassium4.4.Ipkpsokn66/09/2014[place], [place] [phone].Eigcivwe281.Carbon Wbuthmn8906/13/2014[place] [phone].Carbon Bmafybb46.Renal Panel05/30/2014[facility] [phone].Albumin3.9.Calcium9.3.Carbon Nbdwndp05.Octvwzxn309.Creatinine-LC 1.41.Potassium3.6.Aliaqh700.BUN16.GFR-BB72Ndxs50.GFR Yozpmptk98Uyty14 .GFR Zyidvwhjm36Oktt86.Urinalysis-Scnoykq7205/30/2014[facility] ([phone] Specific Gravity1.030Ua PH Test Strip5.0Ua ColoryellowUa AppearancehazyUa ProteinnegativeUa GlucosenegativeUa KetonesnegativeUa Bilirubin negativeUa UrobilinogennormalUa Nitritenegative.Renal Panel05/22/2014[facility] [phone].Albumin4.1.Calcium9.1.Carbon Jgbesuk96.Pmpxaohk426.Creatinine-LC 1.45.Potassium3.8.Lgafmb676.BUN19.GFR-JN06Xxmz84.GFR Akhyknfb55Ccwk17 .GFR Zaqxthzdc34Aoce13.Renal Panel01/13/2014[facility] [phone].Albumin4.1.Calcium9.3.Carbon Lqbqrtp76.Gfljfkor312.Creatinine-LC 1.26.Potassium4.1.Otijbf153.BUN19.GFR-TF47Vdee16.GFR Dcqpkuhc57Sknr38 .GFR Kzbvdthuv08Mprw33 Encounters Type Date Location Provider Dx Diagnosis Office Visit 06/14/2025 2:20p [facility] Heather Forbes M.D. N11.9 Chronic tubulo-interstitial nephritis, unspecified N18.31 Chronic kidney disea se, stage 3a Office Visit 05/13/2024 1:00p [facility] SHUKRI Sebastian N11.9 Chronic tubulo-interstitial nephritis, unspecified N18.31 Chronic kidney disea se, stage 3a Office Visit 05/18/2023 11:00a [facility] Jerica Stokes N11.9 Chronic tubulo-interstitial nephritis, unspecified N18.31 Chronic kidney disea se, stage 3a D50.9 Iron deficiency anem ia, unspecified E55.9 Vitamin D deficiency , unspecified Office Visit 05/23/2022 11:00a [facility] Jerica Stokes N11.9 Chronic tubulo-interstitial nephritis, unspecified N18.31 Chronic kidney disea se, stage 3a D50.9 Iron deficiency anem ia, unspecified E55.9 Vitamin D deficiency , unspecified Office Visit 05/22/2021 1:30p [facility] Tequila Giles NP N11.9 Chronic tubulo-interstitial [...] stage 3 (moderate) Office Visit 05/04/2018 10:20a [facility] Heather Forbes M.D. N11.9 Chronic tubulo-interstitial nephritis, unspecified N18.3 Chronic kidney disea se, stage 3 (moderate) Office Visit 03/13/2017 2:00p [facility] Heather Forbes M.D. N11.9 Chronic tubulo-interstitial nephritis, unspecified N18.3 Chronic kidney disea se, stage 3 (moderate) E78.1 Pure hyperglyceridem ia Office Visit 06/15/2015 1:00p [facility] Heather king M.D. 585.3 Chronic Kidney Disease Stage 3 582.89 Interstitial Nephrit is 530.81 Esophageal Reflux Office Visit 12/15/2014 1:00p [facility] BRENDEN Boyer P 585.3 Chronic Kidney Disease Stage 3 582.89 Interstitial Nephrit is V58.64 Retirement (Current)Us e Of Non-Steroid Antiinflammatories 530.81 Esophageal Reflux Office Visit 07/07/2014 11:40a [facility] Heather high M.D. 585.3 Chronic Kidney Disease Stage 3 582.89 Interstitial Nephrit is V58.64 Retirement (Current)Us e Of Non-Steroid Antiinflammatories 530.81 Esophageal Reflux Office Visit 06/09/2014 1:00p [facility] Matheus ngo 585.3 Chronic Kidney Disease Stage 3 582.89 Interstitial Nephrit is V58.64 Retirement (Current)Us e Of Non-Steroid Antiinflammatories 789.00 Pain Abdominal Unspe c Site Assessments Date Code Description Provider 06/14/2025 N11.9 Chronic tubulo-i nterstitial nephritis, unspecified Heather Heidyna M.D. 06/14/2025 N18.31 Chronic kidney disease, stag e 3a Heatherwoody Forbes M.DLori 05/13/2024 N11.9 Chronic tubulo-i nterstitial nephritis, unspecified RYAN SebastianC 05/13/2024 N18.31 Chronic kidney disease, stag e 3a RYAN SebastianC 05/18/2023 N11.9 Chronic tubulo-i nterstitial nephritis, unspecified Foster, Jerica 05/18/2023 N18.31 Chronic kidney disease, stag e 3a Foster, Jerica 05/18/2023 D50.9 Iron deficiency anemia, unsp ecified Kike, Jerica 05/18/2023 E55.9 Vitamin D deficiency, unspec ified Foster, Jerica 05/23/2022 N11.9 Chronic tubulo-i nterstitial nephritis, unspecified Kike, Jerica 05/23/2022 N18.31 Chronic kidney disease, stag e 3a Kike, Jerica 05/23/2022 D50.9 Iron deficiency anemia, unsp ecified Foster, Jerica 05/23/2022 E55.9 Vitamin D deficiency, unspec ified Foster, Jerica 05/22/2021 N11.9 Chronic tubulo-i nterstitial nephritis, unspecified Heather Heidyna M.D. 05/22/2021 N11.9 Chronic tubulo-i nterstitial nephritis, unspecified Tequila Giles NP 05/22/2021 N18.30 Chronic kidney disease, stag e 3 unspecified Heather Benjaminadana M.D. 05/22/2021 N18.30 Chronic kidney disease, stag e 3 unspecified Tequila Giles, CONTROLS DESIGNER 06/08/2020 N11.9 Chronic tubulo-i nterstitial nephritis, unspecified Heather Kamadana M.D. 06/08/2020 N18.3 Chronic kidney disease, stag e 3 (moderate) Ehather Kamadana M.D. 06/22/2019 N11.9 Chronic tubulo-i nterstitial [...] Chronic Kidney Disease Stage 3 Cheryl Palomo, [employer] SALESPERSON 12/15/2014 582.89 Interstitial Nephritis Cheryl Palomo, [employer]LECT[employer] SALESPERSON 12/15/2014 V58.64 Retirement (Curren t)Use Of Non-Steroid Antiinflammatories Cheryl Palomo, [employer] SALESPERSON 12/15/2014 530.81 Esophageal Reflux Cheryl liang, [employer] SALESPERSON 07/07/2014 585.3 Chronic Kidney Disease Stage 3 Heather Kamadana M.D. 07/07/2014 582.89 Interstitial Nephritis Swapn a Kamadana M.D. 07/07/2014 V58.64 Retirement (Curren t)Use Of Non-Steroid Antiinflammatories Heather Kamadana M.D. 07/07/2014 530.81 Esophageal Reflux Heather stevens M.D. 06/09/2014 585.3 Chronic Kidney Disease Stage 3 Doug Klein M.D. 06/09/2014 582.89 Interstitial Nephritis Kenroy Klein M.D. 06/09/2014 V58.64 Retirement (Curren t)Use Of Non-Steroid Antiinflammatories Doug Klein M.D. 06/09/2014 789.00 Pain Abdominal Unspec Site S yasmin Klein M.D.
--- OUTSIDE RECORDS SUMMARY | 2025-08-09 14:22 | XMS_ITS | Patient Health Record ---
Author Organization [facility] in [place] Address [address] [place] [address] Care Team Providers Care Ingredient Specialist Name Role Phone None, Unknown or Primary Care Provider Unavailab Frances Plascencia [phone] Allergies Allergen (clinical drug ingredient) Drug/Non Drug Allergy documented on EMR Reaction Allergy Type Onset Date Status ChloraPrep One StepUnknownDrug AllergyActive Results Component Value Reference Range Notes XR foot LT min 3V (Not yet r eviewed by provider) Interpretation: Performing Lab: Notes/Report: Source Facility: [place] [address] XRay Report Signed Patient: CELINA GASPAR MR#: [id number] : 1980 Acct:[id number] Age/Sex: 44 / F ADM Date: 08/23/24 Loc: RAD Attending Dr: Frances Chase D.P.M. Ordering Physician: Frances Chase D.P.M. Date of Service: 08/23/24 Procedure(s): XR foot LT min 3V Accession Number(s): [id number] cc: Frances Chase D.P.M.; Physician,Non-Staff [place] [address] Patient Name: CELINA GASPAR MRN: [id number] date: 1980 Sex: F Assigned Patient Location: RAD Current Patient Location: Accession/Order Number: [id number] Exam Date: 08/23/2024 10:38 Report Date: 08/25/2024 [...] M.D. Signed By: 08/25/24616 DD/ 3 TD/TT: Shirt Line Operator: XR foot LT min 3V (Not yet r eviewed by provider) Interpretation: Performing Lab: Notes/Report: Source Facility: [place] [address] XRay Report Signed Patient: CELINA GASPAR MR#: [id number] : 1980 Acct:[id number] Age/Sex: 44 / F ADM Date: 11/01/24 Loc: RAD Attending Dr: Frances Chase D.P.M. Ordering Physician: Frances Chase D.P.M. Date of Service: 11/01/24 Procedure(s): XR foot LT min 3V Accession Number(s): [id number] cc: Frances Chase D.P.M.; Physician,Non-Staff [place] [address] Patient Name: CELINA GASPAR MRN: [id number] date: 1980 Sex: F Assigned Patient Location: RAD Current Patient Location: Accession/Order Number: [id number] Exam Date: 11/01/2024 10:45 Report Date: 11/02/2024 [...] Signed By: 11/02/24 1312 DD/ 1309 TD/TT: Shirt Line Operator: BASIC METABOLIC PANL (Not ye t reviewed by provider) Interpretation: Performing Lab:[facility], [address] [place] [address] PH:[phone] Notes/Report: NA (Sodium) 138 135-144 mmol/L K (Potassium)4.43.7-5.3 mmol/QKlolnuwx83474-162 mmol/DSC25517-66 mmol/LAnion Gap 129-17 mmol/LVqzwrfk66769-51 mg/dLBUN (Urea N)176-20 mg/dLCreatinine1.30.5-0.9 mg/oXjBKI91>60 mL/min/1.73m2 extra-renal metabolism of creatine, excessive creatine ingestion, or following results calculated using previous equations. The CKD-EPI equation is less accurate in patients with extremes of muscle mass, eGFR results are calculated without a race factor using the 2020 CKD-EPI therapy that affects renal tubular secretion. Careful clinical correlation is recommended, particularly when comparing to These results are not intended for use in patients <18 years of age. equation. Calcium9.38.6-10.4 mg/dLMORPHX (Not yet reviewed by provider) Interpretation: Performing Lab:[facility], [address] [place] [address]., [place] [address] PH:[phone] Notes/Report:MorphologyMODERATE ANISOCYTOSISCBC (COMPLETE BLOOD COUNT) * (Not yet reviewed by provider) Interpretation: Performing Lab:[facility], [address] [place] [address]., [place] [address] PH:[phone] Notes/Report:WBC Count9.93.5-11.0 k/uLRBC Count3.904.00-5.20 m/cSMvrmtqiokz19.0 12.0-16.0 g/aWUrswghkvgw83.336.0-46.0 %MCV87.980.0-100.0 fLMCH28.226.0-34.0 pg MCHC32.131.0-37.0 g/dLRDW17.112.1-15.2 %Platelet Hqpno047307-986 k/uLMPV11.46.0- 12.0 fLCRP (Not yet reviewed by provider) Interpretation: Performing Lab:[facility], [address] [place] [address], [place] [address] PH:[phone] Notes/Report:C-Reactive Lfsyzrp65.10.0-5.0 mg/LESR (Not yet reviewed by provider) Interpretation: Performing Lab:[facility], [address] [place] [address]., [place] [address] PH:[phone] Notes/Report:Sedimentation Yrvq617-43 mm/HrBASIC METABOLIC PANL (Not yet reviewed by provider) Interpretation: Performing Lab:[facility], [address] [place] [address], [place] [address] PH:[phone] Notes/Report:NA (Sodium)445758-744 mmol/LK (Potassium)4.43.7-5.3 mmol/LChloride 39686-308 mmol/RJG78193-28 mmol/LAnion Qbn28-68 mmol/OCxxccbf6526-86 mg/dLBUN (Urea N)196-20 mg/dLCreatinine1.40.5-0.9 mg/uCkSMY84>60 mL/min/1.73m2 extra-renal metabolism of creatine, excessive creatine ingestion, or following equation. These results are not intended for use in patients <18 years of age. therapy that affects renal tubular secretion. Careful clinical correlation is recommended, particularly when comparing to The CKD-EPI equation is less accurate in patients with extremes of muscle mass, results calculated using previous equations. eGFR results are calculated without a race factor using the 2020 CKD-EPI Mbenxdc01.18.6-10.4 mg/dLESR (Not yet reviewed by provider) Interpretation: Performing Lab:[facility], [address] [place] [address]., [place] [address] PH:[phone] Notes/Report:Sedimentation Rusj840-81 mm/HrCRP (Not yet reviewed by provider) Interpretation: Performing Lab:[facility], [address] [place] [address]., [place] [address] PH:[phone] Notes/Report:C-Reactive Protein6.20.0-5.0 mg/LCBC (COMPLETE BLOOD COUNT) * (Not yet reviewed by provider) Interpretation: Performing Lab:[facility], [address] [place] [address]., [place] [address] PH:[phone] Notes/Report:WBC Count3.83.5-11.0 k/uLRBC Count3.544.00-5.20 m/uLHemoglobin9.9 12.0-16.0 g/dWAeuzcblzmn86.336.0-46.0 %MCV91.280.0-100.0 fLMCH28.026.0-34.0 pg MCHC30.731.0-37.0 g/dLRDW19.412.1-15.2 %Platelet Jgqjg193236-638 k/uLMPV11.76.0- 12.0 fLXR foot LT min 3V (Not yet reviewed by provider) Interpretation: Performing Lab: Notes/Report: Source Facility: [facility] [place] [place] [address] [place] [address] XRay Report Signed Patient: CELINA GASPAR MR#: [id number] : 1980 Acct:[id number] Age/Sex: 44 / F ADM Date: 11/18/24 Loc: EC Attending Dr: Frances Chase D.P.M. Ordering Physician: Frances Chase D.P.M. Date of Service: 11/18/24 Procedure(s): XR foot LT min 3V Accession Number(s): [id number] cc: Frances Chase D.P.M.; Physician,Non-Staff [facility] [place] [address] Patient Name: CELINA GASPAR MRN: [id number] date: 1980 Sex: F Assigned Patient Location: Current Patient Location: Accession/Order Number: [id number] Exam Date: 11/18/2024 10:55 Report Date: 11/18/2024 [...] Signed By: 11/18/24 1346 DD/ 1344 TD/TT: Shirt Line Operator:XR foot LT min 3V (Not yet reviewed by provider) Interpretation: Performing Lab: Notes/Report: Source Facility: [place] [address] [place] [address] XRay Report Signed Patient: CELINA GASPAR MR#: [id number] : 1980 Acct:[id number] Age/Sex: 44 / F ADM Date: 09/20/24 Loc: RAD Attending Dr: Frances Chase D.P.M. Ordering Physician: Frances Chase D.P.M. Date of Service: 09/20/24 Procedure(s): XR foot LT min 3V Accession Number(s): [id number] cc: Frances Chase D.P.M.; Physician,Non-Staff [facility] [place] [id number] Patient Name: CELINA GASPAR MRN: [id number] date: 1980 Sex: F Assigned Patient Location: [facility] Current Patient Location: Accession/Order Number: [id number] Exam Date: 09/20/2024 10:45 Report Date: 09/21/2024 [...] Rosales Hinson M.D. Signed By: 09/21/2459 DD/ 0656 TD/TT: Shirt Line Operator: Reason For Referral Reason Referral to [facility] Diagnosis 1 Charcot's joint, lef t ankle and foot (M14.672) Referral Organization [facility] [place] ([facility]) Referring Provider First Name Frances Referring [...] midfoot with other specified severity (L97.428)ActiveconfirmedProblemInformation temporarily unavailableNon-pressure chronic ulcer of other part of right foot with muscle involvement without evidence of necrosis (L97.515)Activeconfirmed ProblemInformation temporarily unavailableControlled type 2 diabetes mellitus with other skin ulcer, without long-term current use of insulin(E11.622)Active confirmedProblemInformation temporarily unavailable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)ActiveconfirmedProblemInformation temporarily unavailableIschemic ulcer of left heel with fat layer exposed (L97.422)Active confirmed Vital Signs Heart Rate 88 /min 11/18/2024 Owribllyoic96.2 degrees Ovayowqknu04/14/7054Lxdypvlc11 %11/18/20241893Qbvcwb44 in 11/18/20245769Xlykbg330 lbs11/18/2024BMI36.58 kg/m211/18/2024 Encounters Encounter Location Date Provider Diagnosis [facility] [place] ([facility]) [address] [place], [place] [address] [address] 08/23/2024 Frances Chase Pain in left foot M79.672 ; Charcot's joint, left ankle and foot M14.672 and 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 [facility] (PODIATRY) [address] [place] [address] [place] [address] 09/20/2024 Frances Chase Pseudarthrosis after fusion or arthrodesis M96.0 ; Charcot's joint, left ankle and foot M14.672 ; Hereditary and idiopathic neuropathy, 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 and Pain in left foot M79.672 [facility] (PODIATRY) [address] [place] [address] [place] [address] 11/01/2024 Frances Chase Charcot's joint, lef t ankle and foot M14.672 ; Pseudarthrosis after fusion or arthrodesis M96.0 and Pain in left foot M79.672 [facility] (PODIATRY) [address] [place] [address] [place] [address] 11/18/2024 Frances Chase Pseudarthrosis after fusion or arthrodesis M96.0 ; Charcot's joint, left ankle and foot M14.672 and Pain in left foot M79.672 Assessments Encounter Date Diagnosis (ICD Code) Assessment Notes Treatment Notes Treatment Clinical Notes Section Notes 09/20/2024 Pseudarthrosis after fusion or a rthrodesis (ICD-10 - M96.0) Patient should remain in [...] I would like weightbearing foot x-rays at follow-up09/20/2024 Charcot's joint, left ankle and foot (ICD-10 - M14.672)08/23/2024ain in left foot (ICD-10 - M79.672)08/23/2024harcot's joint, left ankle and foot (ICD-10 - [...] to 6 weeks after using the bone /28/2025harcot's joint, left ankle and foot (ICD-10 - [...] x-rays11/01/2024Pseudarthrosis after fusion or arthrodesis (ICD-10 - M96.0) 11/18/2024Pseudarthrosis after fusion or arthrodesis (ICD-10 - M96.0)Patient is now over 9 months from medial [...] will follow-up in 2 months with foot x-rays11/18/2024harcot's joint, left ankle and foot (ICD-10 - M14.672)11/18/2024Pain in left foot (ICD-10 - M79.672) 11/01/2024Pain in left foot (ICD-10 - M79.672)08/23/2024Non-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 with other specified severity (ICD-10 - L97.428)I recommended washing the area with soap and water and daily application of Medihoney with Allevyn.She is to monitor the area for signs of infection. She will follow-up in the wound center within the next 2 weeks09/20/2024Hereditary and idiopathic neuropathy, unspecified (ICD-10 - G60.9)09/20/2024ain in left foot (ICD-10 - M79.672) Plan [...] Insured Coverage Start Date Coverage End Date [facility] [id number] [place], [place] [id number] Celina Gaspar Self - patient is the insured Medical (General) History Medical History History ICD Code Gout M10.9 MRSA (methicillin resistant Staphylococc us aureus) A49.02 Kidney disease, chronic, stage II (mild, EGFR 60+ ml/min) N18.2 Neuropathy G62.9 Spondylitis M46.90 Radiculopathy M54.10 Charcot''s joint of left ankle M14.672 Charcot''s joint of left foot M14.672 Surgical History Surgery Date(Month/Year) hysterectomy back surgerycarpal tunnel bilateral handscholecystomyleft midfoot osteotomy and charcot znksukmlniogwq40/13/2024Hospitalization History Reason Date(Month/Year) see above
--- OUTSIDE RECORDS SUMMARY | 2025-08-09 14:22 | XMS_ITS | Clinical Summary ---
Author Organization [facility] 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 Medications MedicationSigDispense QuantityRefillsLast FilledStart DateEnd DateStatus Cholecalciferol (VITAMIN D) 2000 UNITS CAPS capsule Indications:Vitamin D deficiencyTake 1 capsule by mouth daily. 30 capsule 12111/12/2013ctive b complex vitamins capsule Take 1 capsule by mouth dailyActive sertraline (ZOLOFT) 100 MG tablet Take 2 tablets by mouth daily Currently decreasing this /26/2020 Active pregabalin (LYRICA) 300 MG capsule Take 1 capsule by mouth 2 times daily.02/20/2022ctive Biotin 1000 MCG TABS Take 1 tablet by mouth daily02/26/2022ctive NURTEC [address] 1 TABLET ON OR UNDER THE TONGUE EVERY OTHER DAY01/02/2022ctive baclofen (LIORESAL) 10 MG tablet Take 1 tablet by mouth rgcbvlv6004/19/2022ctive montelukast (SINGULAIR) 10 MG tablet Indications:Seasonal allergiesTAKE [...] needed (post-coital UTI prophylaxis) 30 capsule 3Active Additional Information Patient not taking.Reported on 08/03/2025 linaclotide (LINZESS) 145 MCG capsule Indications:Drug-induced constipationTake [...] MG capsule Take 3 capsules by mouth jdpitmj92/6Active clindamycin (CLEOCIN) 300 MG capsule 5Active dapagliflozin (FARXIGA) 10 MG tablet Indications:Stage 3a chronic kidney disease (HCC),Pre-diabetesTake 1 tablet by mouth every morning 90 tablet 5Active ciprofloxacin (CIPRO) 500 MG tablet 5Active fluconazole (DIFLUCAN) 100 MG tablet Take 1 tablet by mouth daily5Active sulfamethoxazole-trimethoprim (BACTRIM;SEPTRA) 400-80 MG per tablet Take 2 tablets by mouth 2 times dailyActive fluconazole (DIFLUCAN) 150 MG tablet Indications:Vaginal yeast infectionTake 1 tablet by mouth once for 1 dose 1 tablet Expired Active Problems ProblemNoted DateDiagnosed DateChronic oxpkwqlturgo94/30/2025 Assessment & Plan (08/03/2025 11:31 AM EDT): Controlled on Linzess PRN. Pre-aecgneex45/26/2022 Assessment & Plan (08/03/2025 11:31 AM EDT): HgbA1C has improved to 5.2 on Farxiga. Continue on a low carb diet with repeat labs in 6 months. Orders: Comprehensive Metabolic Panel; Future Hemoglobin A1C; Future Assessment & Plan (04/18/2025 9:56 AM EDT): Watch a diabetic diet. Exercise as tolerated. Start on Farxiga 10 mg daily. HgbA1C in 3 months. Orders: dapagliflozin (FARXIGA) 10 MG tablet; Take 1 tablet by mouth every morning Hemoglobin A1C; Future Basic Metabolic Panel; Future Aidsqv8205/29/2022Thyroid emjilw932Restless legs05/13/2021 Assessment & Plan (08/03/2025 11:31 AM EDT): Controlled on Requip. No change in medication. Assessment & Plan (11/15/2024 3:08 PM EST): Controlled on Requip. No changes at this time. BUCK on CPAP05/11/2020 Assessment & Plan (08/03/2025 11:31 AM EDT): Controlled on CPAP. Assessment & Plan (11/15/2024 3:08 PM EST): Undergoing the process of getting a new machine. Epidural libtcdb0608/20/2018Septic /16/2018Neoplasm of uncertain behavior of skin02/05/2018Peripheral ehegwresyu83/27/2018Basal cell carcinoma of skin09/29/2017 Overview (02/05/2018): Overview: Added automatically from request for surgery [id number] Basal cell carcinoma of skin of face09/16/2017Mixed irzntnhtgsetey41/15/2017 Assessment & Plan (11/15/2024 3:08 PM EST): [...] Future Carpal tunnel syndrome on right03/05/2017Vitamin D wryspqbmjf45/08/2014 Assessment & Plan (08/03/2025 11:31 AM EDT): Last level was low. Her vitamin d was increased to 2000 units daily. Assessment & Plan (11/15/2024 3:08 PM EST): Controlled on Vitamin D deficiency. Would recommend taking K2 for bone health. GERD (gastroesophageal reflux disease)09/08/2014 Assessment & Plan (08/03/2025 11:31 AM EDT): Has been stable off medication. Assessment & Plan (11/15/2024 3:08 PM EST): Controlled on Pepcid. No change in medication. Chronic renal impairment, stage 3 (moderate)06/09/2014Chronic glomerulonephritis with pathological lesion in ulrdic1206/09/2014Thoracic degenerative disc disease 05/09/2014Seasonal /11/2014CRI (chronic renal insufficiency) 10/25/2013 Assessment & Plan (08/03/2025 11:31 AM EDT): Follows with Nephrology. Avoid NSAIDS and keep BP well controlled. Assessment & Plan (11/15/2024 3:08 PM EST): Renal function has been stable. Avoid NSAIDS. Follows with Nephrology yearly (Dr. Forbes). Orders: Comprehensive Metabolic Panel; Future Depression with ursxgyd4906/24/2013 Assessment & Plan (08/03/2025 11:31 AM EDT): Controlled on Zoloft, Pamelor, and Xanax. Follows with Psychiatry every 3 months. Assessment & Plan (11/15/2024 3:08 PM EST): Has been stable on Zoloft. No change in medication. Abbidfhmprwed56/20/2013 Assessment & Plan (11/15/2024 3:08 PM EST): HgbA1C has been normal. Will repeat HgbA1C and Insulin level with next labs. Orders: Hemoglobin A1C; Future Insulin, Total; Future Chronic fmogqdl2007/20/20126564Lsjlsfj64/16/2012Elevated C-reactive protein (CRP)MRSA (methicillin resistant Staphylococcus aureus) septicemiaDiscitis of thoracic regionInfection of thoracic spine Resolved Problems ProblemNoted DateDiagnosed DateResolved IsxrBzkqoa39Lactic kwidndyp02Mixed hypercholesterolemia and hypertriglyceridemia Depressioncute metabolic encephalopathy 05/11/2020MRSA mowenuqlsf62/07/2020 Encounters DateTypeDepartmentCare GgjoNigugcwljfw61/30/2025 11:00 AM EDTOffice Visit [address] [address] Felipe Adam MD Pre-diabetes (Primary Dx); Depression with anxiety; Vitamin D deficiency; Gastroesophageal reflux disease without esophagitis; Chronic renal impairment, stage 3b; BUCK on CPAP; Restless legs; Chronic constipation; Pure ngbiacgykkrchhfpnrgd95/29/2025 11:54 AM EDT - 08/02/2025 11:59 PM EDT Hospital Encounter [facility] [address] [place] [address] Stage 3a chronic kidney disease (HCC); Pre-diabetes Discharge Disposition: Home or Self Care07/26/2025Orders Only [address] [address] Dimitris Stephens MD 07/21/2025 3:25 PM EDT - 07/21/2025 11:59 PM EDTHospital Encounter [facility] [address] [place] [address] Discharge Disposition: Home or Self Care06/29/2025Orders Only [address] [phone] Dimitris Stephens MD 06/19/2025Refill [address] [address] Felipe Adam MD Medication Fteaxr0106/19/2025Orders Only [facility] [address] [place] [address] Myah Gao MA Stage 3a chronic kidney disease (HCC); Pre-xtjikwkm29/11/2025bstract [facility] [address] [place] [address] Felipe Adam MD 06/12/2025 9:56 AM EDT - 06/12/2025 11:59 PM EDTHospital Encounter [facility] [address] [place] [address] Discharge Disposition: Home or Self Care05/15/2025 12:07 PM EDT - 05/15/2025 11:59 PM EDTHospital Encounter [facility] [address] [place] [address] Discharge Disposition: Home or Self Carefrom Last 3 Months Immunizations ImmunizationAdministration DatesNext DueTDaP, ADACEL (age 10y-64y), BOOSTRIX (age 10y+), IM, 0.5mL09/08/2014 Family History Medical HistoryRelationNameCommentsCancerMotherGlenna MeadelungDiabetesMother Madyson MeadeHigh Blood PressureMotherGlenna MeadeRelationNameStatusComments MotherGlenna Venango Social History Tobacco UseTypesPacks/DayYears UsedDateSmoking Tobacco: NeverPassive Smoke Exposure: NeverSmokeless Tobacco: Never Tobacco Cessation:Counseling Given: Not Answered Alcohol UseStandard Drinks/WeekCommentsNo0 (1 standard drink = 0.6 oz pure alcohol)[facility] UtilitiesAnswerDate RecordedIn the past 12 months has the [employer], [employer], oil, or water [employer] threatened to shut off services in your [...] care, and heating?Somewhat hard 05/08/2024HQ-2AnswerDate RecordedPHQ-9 Total Pjobx991Hunger Vital Sign AnswerDate RecordedWithin the past 12 [...] steady place to sleep or slept in aftonelter (including now)?No05/08/2024Housing Stability Vital SignAnswerDate RecordedIn the last 12 months, was there a time when you were not able to pay the mortgage or rent on time?No11/15/2024In the past 12 months, how many times have you moved where you were living?t any time in the past 12 months, were you homeless or living in a long term (including now)?No11/15/2024Food InsecurityAnswerDate RecordedWithin the past 12 months, you worried that your food would run out before you got the money to buymore.Within the past 12 months, the food you bought just didn't last and you didn't have money to get more.1 11/15/2024CommentsNoSex and Gender InformationValueDate RecordedSex Assigned at FabfkSdxuey78/13/2025 9:45 AM EDTLegal MpuYndhvc03/10/2013 10:13 AM ESTGender IcuzjphcIidcwo37/05/2021 8:11 AM ESTSexual OrientationStraight 10/09/2020 8:11 AM ESTOccupationIndustryJob Start DateJob End DateNot on fileNot on fileNot on fileNot on file Last Filed Vital Signs Vital SignReadingTime TakenCommentsBlood Adzqzryw753/7810 10:52 AM EDT Qsuxm040708/03/2025 10:52 AM RARVpjnihriuxl24.2 ??C (99 ??F)04/04/2025 9:15 PM EDT Respiratory Eskw737304/04/2025 11:15 PM EDTOxygen Ayygswcqqw15%04/18/2025 9:32 AM EDTInhaled Oxygen Concentration--Cebshs70.8 kg (220 lb)08/03/2025 10:52 AM EDT Bbybyi375.4 cm (5')04/04/2025 9:24 PM EDTBody Mass Index42.9704/04/2025 9:24 PM EDT Plan of Treatment Health MaintenanceDue DateLast DoneCommentsHepatitis B vaccine (1 of 3 - 19+ 3- dose series)1998FIT/FOBT: Average risk2024Fecal-DNA (Cologuard): Average risk2024Sigmoidoscopy/CT vkoyzpxqcscw76/25/2024TaP/Tdap/Td vaccine (2 - Td or Tdap)/02/2014Flu vaccine (#1)05/05/2025OVID-19 Vaccine (1 - season)2025Depression Kalmnqcavf46/11/655908/08/2025, 5A1C test (Diabetic or Prediabetic), 04/14/2025, 11/14/2024, Additional history existsGFR test (Diabetes, CKD 3-4, OR last GFR 15-59), 07/21/2025, 06/12/2025, Additional history exists Breast cancer hnznah53/2788Grggrgothik69/07/94566112/09/2017 Colorectal Cancer Vakyxz2812/10/20276726Ubjgfw73, 11/14/2024, 11/14/2024, Additional history existsHepatitis C srzxjmEigsjhhkw41/09/2014 Cervical cancer screenDiscontinuedPap umymaCfljgupsoulw82/21/2021, 03/20/2017HIV lwxcalLypgpwvzw77/09/2022Diabetes tjmvscYmnqoqazextp37/29/2025, 04/14/2025, 11/14/2024, Additional history existsHPV (without or with Pap)DiscontinuedHPV vaccine (No Doses Required)CompletedHepatitis A vaccineAged OutNo longer eligible based on patient's age to complete this topicHib vaccineAged OutNo longer eligible based on patient's age to complete this topicMeningococcal (ACWY) vaccineAged OutNo longer eligible based on patient's age to complete this topicMeningococcal B vaccineAged OutNo longer eligible based on patient's age to complete this topicPneumococcal 0-49 years VaccineAged OutNo longer eligible based on patient's age to complete this topicPolio vaccineAged OutNo longer eligible based on patient's age to complete this topic Procedures Procedure NamePriorityDate/TimeAssociated DiagnosisCommentsHEMOGLOBIN E7UPxlkjok 08/02/2025 11:57 AM EDT Pre-diabetes BASIC METABOLIC BSCPYYsqcaux03/29/2025 11:57 AM EDT Stage 3a chronic kidney disease (HCC) Pre-diabetes X-RAY FOOT 3+LXCdtdiat15/21/2025 4:26 PM EDTSEDIMENTATION HEMIQzugijq09/17/2025 3:37 PM EDT C-REACTIVE EWALENLHgaghsp54/17/2025 3:37 PM EDT CHELrewito39/17/2025 3:37 PM EDT BASIC METABOLIC YGZSBTtoctjf47/17/2025 3:37 PM EDT XR FOOT LIMITED EHDQWYTZXEiiawwf95/24/2025 10:53 AM EDTVITAMIN D 25 HYDROXY Keuqsxg8506/12/2025 9:59 AM EDT PROTEIN, URINE, MONEYZAhnsgac78/08/2025 9:59 AM EDT CREATININE, RANDOM PDDNQCjpkbci53/08/2025 9:59 AM EDT RENAL FUNCTION HTVTCWvgcmtc88/08/2025 9:59 AM EDT PTH, YHOXXXYsbqbwn94/08/2025 9:59 AM EDT MORPHOLOGY IEKCNWcktnfp18/11/2025 12:11 PM EDT SEDIMENTATION MNAMNtenkyw94/11/2025 12:11 PM EDT C-REACTIVE PRSLBJNLtrzccf43/11/2025 12:11 PM EDT QFWYedqysu07/11/2025 12:11 PM EDT BASIC METABOLIC ZRBMJReadwgv53/11/2025 12:11 PM EDT LIPID MCYLIQjiwswq96/11/2025 9:54 AM EDT Mixed hyperlipidemia NITA BRIAN DIGITAL SCREEN GZTNQGRFKMzainmu83/14/2025 11:51 AM EDT Encounter for screening mammogram for malignant neoplasm of breast HIV CDKEOWLyyfpsv78/09/2022 2:09 PM EDT Encounter for screening for HIV HM PAP KVDAEJsrvfec53/21/2021HM WPBJXVBRCNVBrdgtpr88/07/2018HEPATITIS C ANTIBODY Fmyrwfm5206/13/2014 8:54 AM EDT from Last 3 Months or Most Recently Relevant to Health Maintenance Results * Hemoglobin A1C (08/02/2025 11:57 AM EDT)ComponentValueRef RangeTest Method Analysis TimePerformed AtPathologist SignatureHemoglobin A1C5.24.0 - 6.0 % 08/02/2025 11:57 AM EDTMERCY LABORATORIESEstimated Avg Tkuvgtw550mo/dL 08/02/2025 11:57 AM EDTMERCY LABORATORIESComment: The ADA and AACC recommend providing the estimated average glucose result to permit better patient understanding of their HBA1c result. Specimen (Source)Anatomical Location / LateralityCollection Method / Volume Collection TimeReceived TimeBloodBLOOD SPECIMEN / Ozjmqft4008/02/2025 11:57 AM EDT 08/02/2025 11:58 AM EDT Narrative Authorizing ProviderResult TypeResult StatusBilly Back MDCHEMISTRY ORDERABLES Final ResultPerforming OrganizationAddressCity/State/ZIP CodePhone Number [employer] [facility] [address] [place] [address], [facility] [phone] [facility]ITALClip[facility] [address] [place], [place] [address] [phone] * (ABNORMAL) Basic Metabolic Panel (08/02/2025 11:57 AM EDT) Only the most recent of3 resultswithin the time period is included. ComponentValueRef RangeTest MethodAnalysis TimePerformed AtPathologist Signature Mrgqtu697813 - 144 mmol/L1 11:57 AM [employer] [facility] Potassium4.33.7 - 5.3 mmol/L1 11:57 AM [employer] [facility] Jdjdokfz47882 - 107 mmol/L1 11:57 AM [employer] XYMWC79975 - 31 mmol/L1 11:57 AM [employer] LABAnion Gap99 - 17 mmol/L1 11:57 AM [employer] AHQDsqofej2788 - 99 mg/dL 08/02/2025 11:57 AM [employer] FZRIBL414 - 20 mg/dL08/02/2025 11:57 AM [employer] LABCreatinine1.5(H)0.5 - 0.9 mg/dL08/02/2025 11:57 AM EDTMERCY HEALTH SYDNEE LABEst, Glom Filt Rate43(L)>60 mL/min/1.57e54508/02/2025 11:57 AM [facility] LABComment: ? These results are not intended [...] secretion. Calcium9.78.6 - 10.4 mg/dL08/02/2025 11:57 AM [facility] Specimen (Source)Anatomical Location / LateralityCollection Method / Volume Collection TimeReceived TimeBloodBLOOD SPECIMEN / Bieyona8608/02/2025 11:57 AM EDT 08/02/2025 11:58 AM EDT Narrative Authorizing ProviderResult TypeResult StatusBilly Back MDCHEMISTRY ORDERABLES Final ResultPerforming OrganizationAddressCity/State/ZIP CodePhone Number [employer] [facility] [address] [phone] * X-RAY FOOT 3+VW (07/25/2025 4:26 PM EDT) Narrative Authorizing ProviderResult TypeResult StatusHistorical Provider [facility] Final Result * (ABNORMAL) Sedimentation Rate (07/21/2025 3:37 PM EDT) Only the most recent of2 resultswithin the time period is included. ComponentValueRef RangeTest MethodAnalysis TimePerformed AtPathologist Signature Sed Rate, Wigdfttjp13(H)0 - 20 mm/Hr07/21/2025 3:37 PM [employer] LABSpecimen (Source)Anatomical Location / LateralityCollection Method / Volume Collection TimeReceived Time07/21/2025 3:37 PM EDT1 3:38 PM EDT Narrative Authorizing ProviderResult TypeResult StatusKimberrubens Segura PAHEMATOLOGY ORDERABLESFinal ResultPerforming OrganizationAddressCity/State/ZIP CodePhone Number [employer] [facility] [address] [phone] * (ABNORMAL) CBC (07/21/2025 3:37 PM EDT) Only the most recent of2 resultswithin the time period is included. ComponentValueRef RangeTest MethodAnalysis TimePerformed AtPathologist Signature WBC9.93.5 - 11.0 k/uL07/21/2025 3:37 PM EDKING[facility] OHIOGeewa [place] LABRBC3.90(L) 4.00 - 5.20 m/uL07/21/2025 3:37 PM EDMED[facility] [employer] [place] JPHCphynlywpo12.0(L) 12.0 - 16.0 g/dL07/21/2025 3:37 PM EDKING[facility] OHIOOFERTALDIAARD YHBDetcshenys18.3(L) 36.0 - 46.0 %07/21/2025 3:37 PM EDMEDINA [facility]PITAL [facility] NNTHDS06.980.0 - 100.0 fL07/21/2025 3:37 PM EDMED[facility] NWOAQO32.226.0 - 34.0 pg07/21/2025 3:37 PM EDMED[facility] LELJNID30.131.0 - 37.0 g/dL07/21/2025 3:37 PM EDKING[facility] OHIOOFERTALDIAARD ZLVKWW54.1(H)12.1 - 15.2 %07/21/2025 3:37 PM EDMEDINA [facility]OSPITAL [facility] OZYBjunmbfie431583 - 450 k/uL07/21/2025 3:37 PM EDUN[facility] NNBRPA78.46.0 - 12.0 fL07/21/2025 3:37 PM EDUbiquigent Sw[facility] MobileARD LAB Specimen (Source)Anatomical Location / LateralityCollection Method / Volume Collection TimeReceived Time07/21/2025 3:37 PM EDT1 3:38 PM EDT Narrative Authorizing ProviderResult TypeResult StatusKimberly Cloton PAHEMATOLOGY ORDERABLESFinal ResultPerforming OrganizationAddressCity/State/ZIP CodePhone Number [facility] [address] [place] [address], [facility] [phone] * (ABNORMAL) C-Reactive Protein (07/21/2025 3:37 PM EDT) Only the most recent of2 resultswithin the time period is included. ComponentValueRef RangeTest MethodAnalysis TimePerformed AtPathologist Signature CRP16.1(H)0.0 - 5.0 mg/L1 3:37 PM EDTMERC INWEBTURE Limited LABSpecimen (Source)Anatomical Location / LateralityCollection Method / VolumeCollection TimeReceived Time07/21/2025 3:37 PM EDT1 3:38 PM EDT Narrative Authorizing ProviderResult TypeResult StatusFidelmbciaran Segura PACHEMISTRY ORDERABLESFinal ResultPerforming OrganizationAddressCity/State/ZIP CodePhone Number [facility] [employer] [facility] [address] [place] [address], [facility] [phone] * XR FOOT LIMITED BILATERAL (06/28/2025 10:53 [...] 10:00 AM EDT Narrative Authorizing ProviderResult TypeResult StatusJacsanta Dorsey ADMINISTRATIVE DIETITIAN-CURINE ORDERABLESFinal ResultPerforming OrganizationAddressCity/State/ZIP CodePhone Number [facility] [employer] [facility] [address] [place] [address], [facility] [phone] [facility]ITALClip[facility] [address] [place] [address], [facility] [phone] * Creatinine, Random Urine (06/12/2025 9:59 AM EDT)ComponentValueRef RangeTest MethodAnalysis TimePerformed AtPathologist SignatureCreatinine, Ur52.428.0 - 217.0 mg/dL06/12/2025 9:59 AM EDTMERCY LABORATORIESComment:Reference range defined for 1st morning urineSpecimen (Source)Anatomical Location / Laterality Collection Method / VolumeCollection TimeReceived Time06/12/2025 9:59 AM EDT 06/12/2025 10:00 AM EDT Narrative Authorizing ProviderResult TypeResult StatusJanel Dorsey ADMINISTRATIVE DIETITIAN-CURINE ORDERABLESFinal ResultPerforming OrganizationAddressty/State/ZIP CodePhone Number [facility] [address] [place] [address], [facility] [phone] [employer] [address] [place] [address], [facility] [phone] * (ABNORMAL) Vitamin D 25 Hydroxy (06/12/2025 9:59 AM EDT)ComponentValueRef RangeTest MethodAnalysis TimePerformed AtPathologist SignatureVit D, 25-Rwstqzt17.2(L)30.0 - 100.0 ng/mL06/12/2025 9:59 AM EDTMERCY LABORATORIES Comment: Reference Range: Vitamin D status ? Range Deficiency <20 ng/mL Mild Deficiency ? 20-30 ng/mL Sufficiency ?30-100 ng/mL Toxicity >100 ng/mL Specimen (Source)Anatomical Location / LateralityCollection Method / Volume Collection TimeReceived Time06/12/2025 9:59 AM EDT06/12/2025 10:00 AM EDT Narrative Authorizing ProviderResult TypeResult Benton Dorsey ADMINISTRATIVE DIETITIAN-CCHEMISTRY ORDERABLESFinal ResultPerforming OrganizationAddressty/State/ZIP CodePhone Number [facility] [address] [place] [address], [facility] [phone] [employer] [address] [place] [address] * PTH, Intact (06/12/2025 9:59 AM EDT)ComponentValueRef RangeTest MethodAnalysis TimePerformed AtPathologist SignaturePth Xjqrfr55.017.9 - 58.6 pg/mL06/12/2025 9:59 AM [employer] LABORATORIESSpecimen (Source)Anatomical Location / Laterality Collection Method / VolumeCollection TimeReceived Time06/12/2025 9:59 AM EDT 06/12/2025 10:00 AM EDT Narrative Authorizing ProviderResult TypeResult StatusJacquedayna Dorsey ADMINISTRATIVE DIETITIAN-CCHEMISTRY ORDERABLESFinal ResultPerforming OrganizationAddressCity/State/ZIP CodePhone Number [employer] [facility] [address] [place] [address], [facility] [phone] [employer] [address] [place], [place] [address] [phone] * (ABNORMAL) Renal Function Panel (06/12/2025 9:59 AM EDT)ComponentValueRef RangeTest MethodAnalysis TimePerformed AtPathologist HyenajsqpBzvstxu620(H)70 - 99 mg/dL06/12/2025 9:59 AM [facility] PAQNTB39(H)6 - 20 mg/dL 06/12/2025 9:59 AM [employer] LABCreatinine1.3(H)0.5 - 0.9 mg/dL 06/12/2025 9:59 AM [facility] LABEst, Glom Filt Rate51(L)>60 mL/min/1.64i83806/12/2025 9:59 AM [facility] LABComment: ? These results are not intended [...] secretion. Calcium9.28.6 - 10.4 mg/dL06/12/2025 9:59 AM [facility] LABAlbumin 4.23.5 - 5.2 g/dL06/12/2025 9:59 AM [employer] LABPhosphorus3.92.6 - 4.5 mg/dL06/12/2025 9:59 AM [facility] [employer] [place] RZFFsrtfx557976 - 144 mmol/L06/12/2025 9:59 AM [facility] [employer] [place] LABPotassium4.53.7 - 5.3 mmol/L 06/12/2025 9:59 AM EDMED[facility] [employer] [place] PLGMrdxrgui8643 - 107 mmol/L 06/12/2025 9:59 AM [facility] [employer] [place] ZKDCJ63012 - 31 mmol/L06/12/2025 9:59 AM [facility] [place] LABAnion Fqv765 - 17 mmol/L06/12/2025 9:59 AM EDT [facility] [place] LABSpecimen (Source)Anatomical Location / Laterality Collection Method / VolumeCollection TimeReceived Time06/12/2025 9:59 AM EDT 06/12/2025 10:00 AM EDT Narrative Authorizing ProviderResult TypeResult StatusJacsanta Dorsey ADMINISTRATIVE DIETITIAN-CCHEMISTRY ORDERABLESFinal ResultPerforming OrganizationAddressCity/State/ZIP CodePhone Number [facility] [address] [phone] * MORPHOLOGY CHECK (05/15/2025 12:11 PM EDT)ComponentValueRef RangeTest Method Analysis TimePerformed AtPathologist SignatureMorphologyMODERATE ANISOCYTOSIS 05/15/2025 12:11 PM EDMCKITRICK [facility]PITAL SYDN[facility] LABSpecimen (Source)Anatomical Location / LateralityCollection Method / VolumeCollection TimeReceived Time 05/15/2025 12:11 PM EDT05/15/2025 12:12 PM EDT Narrative Authorizing ProviderResult TypeResult StatusPeter D Rena DPMCHEMISTRY ORDERABLESFinal ResultPerforming OrganizationAddressty/State/ZIP CodePhone Number [facility] [address] [place] [id number], [facility] [phone] * (ABNORMAL) Lipid Panel (04/14/2025 9:54 AM EDT)ComponentValueRef RangeTest MethodAnalysis TimePerformed AtPathologist SignatureCholesterol, Hrxxp5413 - 199 mg/dL04/14/2025 9:54 AM EDTMERCY LABORATORIESComment: Cholesterol Guidelines: <200 Desirable 200-240 ??Borderline >240 Undesirable HDL31(L)>40 mg/dL04/14/2025 9:54 AM EDTMERCY LABORATORIESComment: HDL Guidelines: <40 Undesirable 40-59 ?Borderline >59 Desirable LDL Yfwfwzdtweg942 - 100 mg/dL04/14/2025 9:54 AM EDTMERCY LABORATORIESComment: LDL Guidelines: <100 Desirable 100-129 ?? Near to/above Desirable 130-159 ?? Borderline >159 Undesirable Direct (measured) LDL and calculated LDL are not interchangeable tests. Chol/HDL Ratio5.1(H)<5.007 9:54 AM EDTMERCY GLGLRSTRQIAVCodkubkpttygp368 (H)<150 mg/dL04/14/2025 9:54 AM EDTMERCY LABORATORIESComment: Triglyceride Guidelines: <150 Desirable 150-199 ??Borderline 200-499 ??High >499 Very high Based on AHA Guidelines for fasting triglyceride, July 2012. VLDL68(H)1 - 30 mg/dL04/14/2025 9:54 AM EDTMERCY LABORATORIESSpecimen (Source) Anatomical Location / LateralityCollection Method / VolumeCollection Time Received TimeBloodBLOOD SPECIMEN / Ozlthgf7104/14/2025 9:54 AM EDT04/14/2025 9:55 AM EDT Narrative Authorizing ProviderResult TypeResult StatusBilly Back MDCHEMISTRY ORDERABLES Final ResultPerforming OrganizationAddressCity/State/ZIP CodePhone Number [facility] [address] [place] [address], [facility] [phone] [facility] [address] [place], [place] [address] [phone] * NITA BRIAN DIGITAL SCREEN BILATERAL (02/15/2025 11:51 AM EDT)Anatomical Region LateralityModalityBreastBilateralMammographySpecimen (Source)Anatomical Location / LateralityCollection Method / VolumeCollection TimeReceived Time 02/15/2025 11:51 AM EDT Impressions 02/28/2025 12:55 PM EDT OVERALL ASSESSMENT: BIRADS: 1 Negative, no evidence of malignancy. A letter of notification will be mailed to the patient. Performing Facility: [facility] [address] [place], [place] [address] Narrative 02/28/2025 12:55 PM EDT HISTORY: Screening. [...] PM EDT)ComponentValueRef RangeTest MethodAnalysis TimePerformed AtPathologist SignatureHIV Ag/ZdIPSBESVQHAYAMKZBWESYSV51/09/2022 2:09 PM EDTMERCY LABORATORIESComment: No laboratory evidence of HIV infection. ??If acute HIV infection is suspected, consider testing for HIV-1 RNA. Specimen (Source)Anatomical Location / LateralityCollection Method / Volume Collection TimeReceived TimeBLOOD SPECIMEN / Igcmxaj7604/12/2022 2:09 PM EDT 04/12/2022 2:11 PM EDT Narrative Authorizing ProviderResult TypeResult StatusBilly Back MDIMMUNOLOGY ORDERABLES Final ResultPerforming OrganizationAddressCity/State/[facility] CodePhone Number [facility] [address] [place], [place] [address] [phone] [facility] III[facility] [place] [id number] [phone] * HM PAP SMEAR (09/24/2021) Narrative Authorizing [...] ordering HCV RNA by PCR. Performed at [address] [id number] ([phone] Specimen (Source)Anatomical Location / LateralityCollection Method / Volume Collection TimeReceived Time06/13/2014 8:54 AM EDT06/13/2014 8:55 AM EDT Narrative Authorizing ProviderResult TypeResult StatusSuog Klein MDIMMUNOLOGY ORDERABLESFinal ResultPerforming OrganizationAddressCity/State/ZIP CodePhone Number [facility] [address] [facility] [place] [address], [facility] [phone] [facility] from Last 3 Months or Most Recently Relevant to Health Maintenance Additional Health Concerns InfectionOnset DateLast IndicatedMRSA Comment:Blood and spine 05/16/2016MDRO (multi-drug resistant organism) Comment:E. Coli urine 05/02/2022 Insurance * Guarantor: Celina Gaspar TypeRelation to PatientDate of BirthPhone Billing AddressPersonal/JtlhulOvzx1980 [address] [place] [phone] Advance Directives * Full Code (Latest Code Status on File) Date ActivatedDate BovslsdwlntNssvjhvz03/11/2018 4:17 PM08/25/2018 8:55 PM * Full Code Date ActivatedDate InactivatedComments03/19/2017 1:37 PM03/19/2017 4:32 PM * Full Code Date ActivatedDate InactivatedComments03/19/2017 10:57 AM03/19/2017 1:37 PM * Full Code Date ActivatedDate InactivatedComments03/05/2017 12:56 PM03/05/2017 3:55 PM * Full Code Date ActivatedDate InactivatedComments03/05/2017 10:05 AM03/05/2017 12:56 PM Care Teams Team MemberRelationshipSpecialtyStart DateEnd Date Felipe Adam MD [address] [place] [id number] PCP - GeneralInternal Medicine11/14/11
--- OUTSIDE RECORDS SUMMARY | 2025-08-09 14:22 | XMS_ITS | Clinical Summary ---
Author Organization [facility] Address [address] [place] [address] Care Team Providers Care School Transportation Director Name Role Phone Alcides Adam MD Primary Care Provider Allergies Active AllergyReactionsCriticalityNoted DateCommentsChlorhexidineRashLow 03/03/20231239Gmuxeeepks53/25/2024 Made her feel overly thirsty and caused [...] mg) by mouth at bedtime 90 tablet 301/27/468207/27/2026Active Rimegepant Sulfate (Nurtec) 75 MG tablet dispersible [...] 180 capsule Discontinued Active Problems ProblemNoted DateDiagnosed BbeaXxyrcmwiztqavs81/04/2025 Assessment & Plan (03/14/2025 5:41 PM EDT): Add alprazolam 0.25 ahs. Orders: ALPRAZolam (Xanax) 0.25 MG tablet; Take 1 tab 30-45 min before PAP therapy nightly Assessment & Plan (12/06/2024 1:26 PM EST): Once machine is received, pt to call for Rx alprazolam 0.25 hs for better tolerance of mask on face. Trochanteric bursitis of both hips08/24/2023olyneuropathy due to type 2 diabetes jxopotao11/16/2023Obstructive sleep apnea05/20/2023Hypersomnia 05/20/2023 Assessment & Plan (03/14/2025 5:41 PM EDT): Discussed modafinil. May start 100 qam if/when desired., but first optimize PAP use. Cervical paraspinal muscle spasm05/20/2023MRSA (methicillin resistant Staphylococcus aureus) ccbcnzehlp83/15/2023ain in left foot05/19/2023cute hkfjwiziabd05/04/2023ilateral carpal tunnel /04/2023arpal tunnel syndrome of left wrist03/08/2023ervical disc pglculiybzct21/04/2023harcot's joint, left ankle and foot03/08/2023hronic migraine without aura, not intractable, without status gtrjluazfeo74/04/2023losed fracture of metatarsal bone03/08/2023losed nondisplaced fracture of second metatarsal bone of left foot03/08/2023losed fracture of navicular bone of foot03/08/2023losed nondisplaced fracture of intermediate cuneiform of left foot03/08/2023 Contracture, left ankle03/08/2023iscitis of thoracic lojmug4003/08/2023 Disturbance of skin jbupdmyhw79/04/2023Elevated C-reactive protein (CRP) 03/08/2023Idiopathic progressive vaijybadwlqfdr52/04/1496Dhtcwbzprhi30/04/2023 Infection of thoracic spine03/08/20230380Xyyjtkok61/04/2023Limb pain03/08/2023Lumbar hwrprvishgdnb86/04/2023Lumbosacral spondylosis without knxzjykysf86/04/2023 Zkucobvx75/04/8598Eiszikh90/04/2023Hereditary and idiopathic neuropathy, /04/2023rimary osteoarthritis, unspecified ankle and foot 03/08/2023Tarsal tunnel ullhdrwr91/04/2023Type 2 diabetes mellitus with diabetic qczazsjzhdnttz30/04/2023re-rkybbvjl62/26/0830Fcbxsm89/25/2022Thyroid nodule 2Restless legs05/13/2021OSA (obstructive sleep apnea)05/11/2020 Assessment [...] Orders: Ambulatory referral to Neurology Epidural abscess ([facility])08/20/2018Septic rvpfcyhgw36/16/2018Abdominal pain 05/04/2018Pure laijdazskorlaqofl91/31/3663Sqjxjwwwuggqqo82/31/2018Neoplasm of uncertain behavior of skin02/05/2018Peripheral zkyhcsfpfy72/27/2018Basal cell carcinoma of skin of face09/16/2017 Overview (03/08/2023): Added automatically from request for surgery [id number] Overview: Added automatically from request for surgery [id number] Mixed dpizmmskfbhcai63/15/2017Carpal tunnel syndrome of right wrist03/05/2017 Vitamin D ywliuwjwsk36/08/2014GERD (gastroesophageal reflux disease)09/08/2014 Chronic glomerulonephritis with pathological lesion in elgkin5406/09/2014Chronic renal impairment, stage 3 (moderate)06/09/2014Thoracic degenerative disc disease 05/09/2014Seasonal zcjbmerrg44/11/2014CRI (chronic renal insufficiency) 10/25/2013Depression with wengjmf7706/24/20136787Iincnqoxibhax38/20/2013Fatigue 07/20/2012 Encounters DateTypeDepartmentCare DherUopitqojgfj34/25/2025Refill [facility] [address] [place] [address] Janel Allen, ONUR Idiopathic progressive polyneuropathy; Non-seasonal allergic rhinitis due to bwvqzf4005/24/2025 12:30 PM EDTAncillary Procedure [facility] [address] [facility] [address] [place] [address] Cervical paraspinal muscle spasm05/24/2025 11:30 AM EDTOffice Visit [facility] [address] [place] [address] Jennie Barajas, SHIP DESIGN TEACHER-FINISH PRODUCTION MANAGER BUCK (obstructive sleep apnea) (Primary Dx); Cervical paraspinal muscle spasm; Cervical aegmvgnizzpbl43/20/2025Telephone [facility] [address] [place] [address] Gauri Jay MA TENS05/24/2025amboo flowsheet [facility] [address] [place] [phone] Jennie Barajas, SHIP DESIGN TEACHER-FINISH PRODUCTION MANAGER 05/24/20250434Wwopax78/19/2025Telephone [facility] [address] [facility] [address] [place] [address] Nash Block MD from Last [...] ValueDate RecordedSex Assigned at BirthNot on fileLegal QjbGyphld26/15/2023 7:36 PM EDTGender IdentityNot on fileSexual OrientationNot on file Last Filed Vital Signs Vital SignReadingTime TakenCommentsBlood Soihqjia686/8008 11:47 AM EDT Egcgi06413 12:32 PM EDTTemperature--Respiratory Ondb275805/24/2025 11:47 AM EDTOxygen Ojerngfeur16%05/24/2025 11:47 AM EDTInhaled Oxygen Concentration-- Cgxqrz18.3 kg (210 lb)05/24/2025 11:47 AM NLTMjubuh879.5 cm (5' 2 )05/24/2025 11:47 AM EDTBody Mass Index38.4108 11:47 AM EDT Plan of Treatment DateTypeDepartmentCare Team (Latest Contact Info)Rutsyddmprr02/19/2025 1:00 PM ESTOffice Visit [facility] [address] [place] [address] Jennie Barajas, SHIP DESIGN TEACHER-FINISH PRODUCTION MANAGER [address] [place], [place] [phone] 08/29/2025 11:45 AM ESTOffice Visit [facility] [address] [place] [address] Nash Block MD [address] [facility] [address] [place] [address] Procedures Procedure NamePriorityDate/TimeAssociated DiagnosisCommentsXR CERVICAL SPINE COMPLETE 4-5 TTENFWhvtkid52/20/2025 12:45 PM EDT Cervical paraspinal muscle spasm [...] Davila DO Authorizing ProviderResult TypeResult StatusJessica Barajas SHIP DESIGN TEACHER-CNPIMG XR PROCEDURESFinal Result from Last 3 Months Insurance Care Teams Team MemberRelationshipSpecialtyStart DateEnd Date Back, MD Alcides [address] [place] [phone] PCP - GeneralFamily Medicine12/08/24
--- OUTSIDE RECORDS SUMMARY | 2025-08-09 14:27 | XMS_ITS | CCD ---
Author Organization [facility] Care Team Providers Care Hydrometer Calibrator Name Role Phone Back, Felipe Unavailable Unavailable [...] Care Unavailable Back, Felipe Primary Care Provider [phone] Back, Felipe Primary Care Provider Back, Felipe Primary Care Provider Unavailabl e Back , Felipe Primary Care Provider Back , Felipe Primary Care Provider [phone] Back , Felipe Primary Care Provider BACK, FELIPE Primary Care Unavailable MUTNAL, AMAR Admitting Unavailable MUTNAL, AMAR Attending Unavailable Back , Felipe Primary Care Provider [phone] NON STAFF Primary Care Provider UnavailMD Trace Mixon. Attending Provider Back , Felipe Primary Care Provider [phone] YOON COBB Referring Unavailable BACK, FELIPE Primary Care Unavailable Back , Felipe Primary Care Provider KALPESH ARENAS Attending Unavail able BACK, FELIPE Primary Care Unavailable Back , Felipe Primary Care Provider FRANCES HARRIS Admitting Unavailable FRANCES HARRIS Attending Unavailable FRANCES HARRIS Consulting Unavailable FRANCES HARRIS Admitting Unavailable FRANCES HARRIS Attending Unavailable [facility], DR PIPER Ackerman Consulting Unavailable HIGHLFRANCES HERNANDEZ Consulting Unavailable FRANCES HARRIS Admitting Unavailable FRANCES HARRIS Attending Unavailable [place], DR EMILY Riojas Consulting Unavailable FRANCES HARRIS Consulting Unavailable Back , Felipe Primary Care Provider [phone] BACK, FELIPE Primary Care Unavailable ROBBIN SHOOK [...] VAN Attending Unavailable VAN, JENNIE Referring Unavailable TRACE CASAS Attending Unavailable FOZIA MENG Attending Unavailable Back Alcides MELENDREZ Primary Care Provider BACK, FELIPE Attending Unavailable BACK, FELIPE Referring Unavailable BACK, FELIPE Primary Care Unavailable BACK, FELIPE Primary Care Unavailable SEVERO CASE Attending Unavailable BACK, FELIPE Referring Unavailable BACK, FELIPE Primary Care Unavailable DAMON SEGURA Referring Unavailable BACK, FELIPE Primary Care Unavailable JANEL SAMSON Referring Unavailable BACK, FELIPE Primary Care Unavailable FRANCES HARRIS Referring Unavailable BACK, FELIPE Primary Care Unavailable [...] of OnsetReaction(s) Facility (20 sources)Chlorhexidine; Translations: [CHLORHEXIDINE]Drug [id number] [facility] (13 sources)topiramate; Translations: [TOPIRAMATE]Drug [id number] (See Comments)[facility] (20 sources)TopiramatePropensity to adverse pnjbccjiv55-68-7995[facility] (1 source)Chlorhexidine; Translations: [Chlorhexidine Gluconate]Drug Allergy [facility] Medications Current Medications MedicationDrug Class(es)DatesSig (Normalized)Sig (Original)acetaminophen 325 mg / HYDROcodone bitartrate 5 mg oral tablet (10 sources)Opioid AgonistStart: 80-07-0765JZCCPinrols-acetaminophen (NORCO) 5- 325 MG per tablettake 1 tablet by mouth every eight hours as neededhydroCODone- acetaminophen 5-325 MG Tab tablet take 1 tablet by mouth every 8 hours as needed. ActiveALPRAZolam 0.25 mg oral tablet (20 sources)BenzodiazepineStart: 70-52-5347qysa 1 tablet by mouth once daily ALPRAZolam (XANAX) 0.25 MG tablet Take 1 tablet by mouth nightly. 03/14/2025 Activeamoxicillin 875 mg / clavulanate 125 mg oral tablet (1 source)Penicillin-class AntibacterialStart: 08-08-2020 End: 03-49-2141tjzt 1 tablet by mouth twice dailyamoxicillin-clavulanate (AUGMENTIN) 875-125 MG per tablet Indications: Bacterial sinusitis Take 1 tablet by mouth 2 times daily for 7 days 14 tablet 0 08/08/2020 08/15/2020 Scvsjr95 hr amphetamine aspartate 5 mg / amphetamine sulfate 5 mg / dextroamphetamine saccharate 5 mg / dextroamphetamine sulfate 5 mg extended release oral capsule (4 sources)Central Nervous System StimulantStart: 02-25-2023 End: 77-67-6773fmhjvxzxadhmmxrrp-amphetamine (ADDERALL XR) 20 MG 24 hr capsule 02/25/2023 10/11/2024 Discontinued (Patient Discharge)Start: 44-53-6668yqgy 1 capsule by mouth once daily in [...] tablet (20 sources)gamma-Aminobutyric Acid-ergic AgonistStart: 12-16-2024 End: 31-77-3084ndnu 2 tablets by mouth at bedtimebaclofen (Lioresal) 10 MG tablet Indications: Cervical paraspinal muscle spasm TAKE 2 TABLETS BY MOUTH AT BEDTIME FOR 30 DAYS 60 tablet 3 05/24/2025 ActiveStart: 42-29-6052ljtp 2 tablets by mouth at bedtimebaclofen (Lioresal) 10 MG tablet Indications: Cervical paraspinal muscle spasm TAKE 2 TABLETS BY MOUTH AT BEDTIME FOR 30 DAYS 60 tablet 3 07/12/2024 ActiveStart: 99-89-8711kvjb 1 tablet by mouth once dailybaclofen (LIORESAL) 10 MG tablet Take 1 tablet by mouth nightly 04/19/2022 Activebiotin 1 mg oral tablet (20 sources)Start: 73-32-8881wehm 1 tablet by mouth once dailyBiotin 1000 [...] bedtime. Activecalcium carbonate 500 mg oral tablet (16 sources)take 1 tablet by mouth twice dailycalcium carbonate (OSCAL) 500 MG TABS tablet Take 1 tablet by mouth 2 times daily Activecalcium carbonate (CALCIUM 500 ORAL) Take by mouth . Activecalcium carbonate (CALCIUM 500 ORAL) Take by mouth . 0 Activecephalexin 250 mg oral capsule (18 sources)Cephalosporin AntibacterialStart: 08-13-2023 End: 48-91-4469kzkq 1 capsule by mouth once daily as needed for urinary tract infectioncephALEXin (KEFLEX) 250 MG capsule Indications: Frequent UTI Take 1 capsule by mouth daily as needed (post-coital UTI prophylaxis) 30 capsule 1 08/13/2023 ActiveStart: 15-19-2467rdjv 1 capsule by mouth once daily as needed for urinary tract infectioncephALEXin (KEFLEX) 250 MG capsule Indications: Frequent UTI Take 1 capsule by mouth daily as needed (post-coital UTI prophylaxis) 30 capsule 1 08/07/2022 Activecholecalciferol 0.05 mg oral capsule (20 sources)Vitamin DStart: 43-89-0003vubr 1 capsule by mouth once daily Cholecalciferol (VITAMIN D) 2000 UNITS CAPS capsule Indications: Vitamin D deficiency Take 1 capsule by mouth daily. 30 capsule 12 09/11/2014 Active cholecalciferol (Vitamin D-3) 50 MCG (2000 UT) tablet Take by mouth Active cholecalciferol, vitamin D3, (VITAMIN D3) 2,000 unit Tab Take by mouth. Active clindamycin 300 mg oral capsule (16 sources)Lincosamide AntibacterialStart: 04-04-2025 End: 34-40-1723nuoficnlrfp (CLEOCIN) 300 MG capsule 04/13/2025 ActiveStart: 28-02-9569lrcbyhiyxks (CLEOCIN) 150 MG capsulecyclobenzaprine hydrochloride 5 mg oral tablet (16 sources)Muscle Relaxanttake 0.5 tablet by mouth once dailycyclobenzaprine (FLEXERIL) 5 MG tablet Take 5 mg by mouth nightly 1/2 tablet every night 0 Activedapagliflozin 10 mg oral tablet (7 sources)Sodium-Glucose Cotransporter 2 InhibitorStart: 26-99-4417caja 1 tablet by mouth once daily in the morningdapagliflozin (FARXIGA) 10 MG tablet Indications: Stage 3a chronic kidney disease (HCC) , Pre-diabetes Take 1 tablet by mouth every morning 90 tablet 1 06/19/2025 Yprntx02 hr desvenlafaxine succinate 25 mg extended release oral tablet (1 source)Serotonin and Norepinephrine Reuptake InhibitorStart: 07-29-2021 desvenlafaxine succinate (PRISTIQ) 25 MG TB24 extended release tablet 25 mg daily 0 07/29/2021 Activedextromethorphan hydrobromide 15 mg / guaiFENesin 400 mg / pseudoephedrine hydrochloride 60 mg oraltablet (1 source)alpha-Adrenergic Agonist, Uncompetitive Y-hfbvok-R-aspartate Receptor Antagonist, Sigma-1 AgonistStart: 02-13-2021 End: 08-96-9835gdjn 1 tablet by mouth every six hours as needed Hhnwcikamqflmzd-JC-LS (CAPMIST DM) 60-15-400 MG TABS Take 1 tablet by mouth every 6 hours as needed(Sinus pressure) 28 tablet 0 02/13/2021 02/20/2021 Active doxycycline hyclate 100 mg oral capsule (15 sources)Tetracycline-class DrugStart: 09-20-2018 End: 96-67-4101tmvv 1 capsule by mouth twice dailydoxycycline hyclate [...] mg/mg ophthalmic ointment (2 sources)Macrolide, Macrolide AntimicrobialStart: 81-09-5296vvgnuktsvmfb 5 MG/GM Ointment ophthalmic ointment Apply to eye incisions 2 x a day 1 Tube 0 08/19/2017 Activefamotidine 20 mg oral tablet (20 sources)Histamine-2 Receptor AntagonistStart: 49-12-8142fpltttienu (PEPCID) 20 MG tablet Indications: Gastroesophageal reflux disease without esophagitis TA KE 1 TABLET TWICE A DAY 180 tablet 3 04/03/2025 ActiveStart: 76-01-0770yebr 1 tablet by mouth twice dailyfamotidine (PEPCID) 20 MG tablet Indications: Gastroesophageal reflux disease without esophagitis Take 1 tablet by mouth 2 times daily 60 tablet 5 05/26/2023 ActiveStart: 23-25-9287jyxg 1 tablet by mouth twice dailyfamotidine (PEPCID) 20 MG tablet Indications: Gastroesophageal reflux disease without esophagitis Take 1 tablet by mouth 2 times daily 60 tablet 3 2022 Activefluconazole 150 mg oral tablet (1 source)Azole AntifungalStart: 12-88-1054kgeenimwmod (DIFLUCAN) 150 MG tablet Indications: Antibiotic-induced yeast infection Take 1 tablet by mouth at first sign of yeast infection and repeat in 72 hours for severe infection. 2 tablet 0 06/06/2021 Activefluticasone propionate 0.05 mg/actuat metered dose nasal spray (20 sources)CorticosteroidStart: 01-54-7878lhkx 2 spray(s) nasal route once dailyfluticasone (FLONASE) 50 MCG/ACT nasal spray Indications: Seasonal allergies USE 2 SPRAYS IN EACH NOSTRIL DAILY 48 g 3 09/22/2022 ActiveStart: 55-61-5886zvzq 2 spray(s) nasal route once dailyfluticasone (Flonase) 50 MCG/ACT nasal spray Administer 2 sprays into each nostril Daily 09/22/2022ctiveStart: 35-73-7967wfca 2 spray(s) nasal route in the morningfluticasone (Flonase) 50 MCG/ACT nasal spray Administer 2 sprays into each nostril in the morning. 1 11/23/2021 ActiveStart: 92-86-9346rgyf 2 spray(s) nasal route once daily fluticasone [...] 600 mg oral tablet (2 sources)Anti-epileptic AgentStart: 69-59-1031cscf 1 tablet by mouth twice dailygabapentin 600 [...] daily. 0 Activelinaclotide 0.145 mg oral capsule (11 sources)Guanylate Cyclase-C AgonistStart: 22-11-9320hbbb 1 capsule by mouth once dailylinaclotide (LINZESS) 145 MCG capsule Indications: Drug-induced constipation Take 1 capsule by mouth daily 90 capsule 1 05/09/2024 Active lisdexamfetamine dimesylate 40 mg oral capsule (20 sources)Central Nervous System StimulantStart: 37-78-4441IJKGHRS 40 MG CAPS Take 50 mg by mouth daily. 03/04/2023 ActiveStart: 14-31-9495RHDVSTQ 40 MG CAPS Start: 88-75-5245UTFLZUF 40 MG CAPS daily. 0 05/06/2021 ActiveStart: 01-10-2021 VYVANSE 20 MG CAPS End: 39-13-3176yjfx 1 capsule by mouth in the morninglisdexamfetamine (Vyvanse) 50 MG capsule Take 50 mg by mouth in the morning. 09/14/2024 Discontinued (Ineffective)loperamide hydrochloride 2 mg oral capsule (1 source)Opioid AgonistStart: 01-21-2021 End: 44-78-4475dvth 1 capsule by mouth four times daily as needed for diarrhea loperamide (RA ANTI-DIARRHEAL) 2 MG capsule Indications: Diarrhea in adult patient Take 1 capsule by mouth 4 times daily as needed for Diarrhea 20 capsule 0 01/21/2021 01/26/2021 Activemelatonin 3 mg oral tablet (17 sources) End: 32-60-0790xgebishbp 3 mg Tab Take by mouth nightly. 10/11/2024 Discontinued (Patient Discharge)methocarbamol 500 mg oral tablet (2 sources)Muscle RelaxantStart: 59-81-0828gwdqdtnojcbqu (ROBAXIN) 500 MG tablet montelukast 10 mg oral tablet (20 sources)Leukotriene Receptor AntagonistStart: 09-22-2022 End: 63-92-1577ehwhqgjxyyg (SINGULAIR) 10 MG tablet Indications: Seasonal allergies TAKE 1 TABLET NIGHTLY 90 tablet 3 09/22/2022 ActiveStart: 04-11-2022 take 1 tablet by mouth once dailymontelukast (SINGULAIR) 10 MG tablet Indications: Seasonal allergies Take 1 tablet by mouth qidpyto74 tablet 1 04/11/2022 ActiveStart: 04-92-7653yenalyqbyvk (SINGULAIR) 10 MG tablet nitrofurantoin, macrocrystals 25 mg / nitrofurantoin, monohydrate 75 mg oral capsule (1 source)Nitrofuran AntibacterialStart: 06-11-2021 End: 91-35-2170wwia 1 capsule by mouth twice dailynitrofurantoin, macrocrystal- monohydrate, (MACROBID) 100 MG capsule Indications: Acute cystitis with hematuria Take 1 capsule by mouth 2 times daily for 5 days 10 capsule 0 06/11/2021 06/16/2021 Activenortriptyline 50 mg oral capsule (20 sources)Tricyclic AntidepressantStart: 02-13-2025 End: 34-17-0655puee 3 capsules by mouth once dailynortriptyline (PAMELOR) 50 MG capsule Take 3 capsules by mouth nightly 02/13/2025 02/13/2026 ActiveStart: 09-14-2024 End: 03-63-9121eazb 2 capsules by mouth at bedtimenortriptyline (Pamelor) 50 MG capsule Indications: Idiopathic progressive polyneuropathy , Intractable 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 (CMS/HCC) Take 2 capsules (100 mg) by mouth at bedtime 180 capsule 3 11/02/2024 02/13/2025 Discontinued (Reorder)Start: 06-10-2024 End: 61-99-1747zoyp 2 capsules by mouth at bedtimenortriptyline (Pamelor) 25 MG capsule Indications: Idiopathic progressive polyneuropathy , Bilateral carpal tunnel syndrome , Restless legs , Intractable chronic migraine without aura and with statusmigrainosus (CMS/HCC) Take two capsules by mouth at bedtime. Total of 50 mg. 90 capsule 3 06/10/2024 09/14/2024 Discontinued (Reorder)Start: 11-12-2023 End: 42-44-1183jumk 1 capsule by mouth at bedtimenortriptyline (Pamelor) 25 MG capsule Indications: Idiopathic progressive polyneuropathy , Bilateral carpal tunnel syndrome , Restless legs , Intractable chronic migraine without aura and with statusmigrainosus (CMS/HCC) Take 1 capsule (25 mg) by mouth at bedtime 90 capsule 3 11/12/2023 06/10/2024iscontinued (Reorder)PARoxetine hydrochloride 20 mg oral tablet (5 sources)Serotonin Reuptake InhibitorStart: 43-15-1832yuid 1 tablet by mouth once dailyparoxetine 20 MG Tab take 20 mg by mouth daily. 06/09/2017 Active phentermine hydrochloride 37.5 mg oral tablet (3 sources)Sympathomimetic Amine AnorecticStart: 05-26-2023 End: 06-38-2306hodm 1 tablet by mouth once daily before breakfastphentermine (ADIPEX-P) 37.5 MG tablet Indications: Class 2 severe obesity due to excess calories with serious comorbidity and body mass index (BMI) of 38.0 to 38.9 in adult ([facility]) Take 1 tablet by mouth every morning (before breakfast) for 30 days. Max Daily Amount: 37.5 mg 30 tablet 0 05/26/2023 06/25/2023 ActiveStart: 05-27-2019 End: 75-11-6118unar 40-44.9 capsules by mouth once daily in the morning phentermine (ADIPEX-P) 37.5 MG capsule Indications: Class 3 severe obesity due to excess calories without serious comorbidity with body mass index (BMI) of 40.0 to 44.9 in adult ([facility]) Take 1 capsule by mouth every morning for 30 days. 30 capsule 0 05/27/2019 06/26/2019 ActivepredniSONE 20 mg oral tablet (1 source)Start: 09-16-2020 End: 35-73-4607joir 3 tablets by mouth once dailypredniSONE (DELTASONE) 20 MG tablet Take 3 tablets by mouth daily for 5 days 15 tablet 0 Activepregabalin 300 mg oral capsule (20 sources)Start: 70-46-9841dfbs 1 capsule by mouth in the morningpregabalin (Lyrica) 300 MG capsule Indications: Idiopathic progressive polyneuropathy , Non-seasonal allergic rhinitis due to pollen TAKE 1 CAPSULE BY MOUTH IN THE MORNING AND 1 CAPSULE BY MOUTH BEFORE BEDTIME 180 capsule 07/31/2025 Active Start: 02-20-2022 End: 50-41-4571xjcm 1 capsule by mouth twice dailypregabalin (LYRICA) 300 MG capsule Take 1 capsule by mouth 2 times daily. 02/20/2022 ActiveStart: 57-59-2610hycz 1 capsule by mouth three times dailypregabalin (LYRICA) 150 MG capsule Indications: Epidural abscess , Discitis of thoracic region , Infection of thoracic spine (HCC) , Peripheral polyneuropathy Take 1 capsule by mouth 3 times daily for 30 days.. 90 capsule 0 08/25/2018 ActiveraNITIdine 150 mg oral tablet (1 source)Histamine-2 Receptor AntagonistStart: 13-24-7406kuia 1 tablet by mouth twice dailyraNITIdine (ZANTAC) 150 MG tablet Indications: Epigastric abdominal pain Take 1 tablet by mouth 2 times daily 60 tablet 3 12/09/2019 Active rimegepant 75 mg disintegrating oral tablet (20 sources)Start: 35-14-5658Podgqzfkai Sulfate (Nurtec) 75 MG tablet dispersible Indications: Intractable 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 Take 75 mg by mouth See administration instructions Take 1- 75mg tablet by mouth as needed at the onset of migraine. 16 tablet 11 10/31/2024 ActiveStart: 35-87-8247Blyfjijxie Sulfate (Nurtec) 75 MG tablet dispersible Indications: Intractable 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 (CMS/HCC) Take 75 mg by mouth See administration instructions Take 1- 75mg tablet by mouth as needed at the onset of migraine. 16 tablet 11 09/07/2024 ActiveStart: 82-24-7813Zbflhenuru Sulfate (Nurtec) 75 MG tablet dispersible Indications: Intractable 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 (CMS/HCC) Take 75 mg by mouth See administration instructions. Take 1- 75mg tablet by mouth as needed at the onset of migraine. 16 tablet 11 08/20/2023 ActiveStart: 20-85-5242QTDBBM [address] 1 TABLET ON OR UNDER THE TONGUE EVERY OTHER DAY 01/02/2022 ActiverOPINIRole 1 mg oral tablet (20 sources)Nonergot Dopamine AgonistStart: 10-31-2024 End: 06-39-7230dfpp 1 tablet by mouth in the morning, then take 1 tablet by mouth in the evening, then take 1 tablet by mouth at bedtimerOPINIRole (Requip) 0.5 MG tablet Indications: Restless legs Take 1 tablet (0.5 mg) by mouth in the morning and 1 tablet (0.5 mg) in the evening and 1 tablet (0.5 mg) before bedtime. 270 tablet 3 10/31/2024 02/13/2025 Discontinued (Reorder)Start: 54-83-4965gWWRIUBoey (Requip) 0.5 MG tablet Indications: Restless legs TAKE 1 TABLET THREE TIMES A DAY 270 tablet 3 08/24/2023 ActiveStart: 02-10-2023 rOPINIRole (REQUIP) 0.5 MG tabletStart: 04-02-2021 End: 82-73-0884shtx 1 tablet by mouth three times dailyrOPINIRole (REQUIP) 1 MG tablet Indications: Restless legs Take 1 tablet by mouth 3 times daily 270tablet 1 10/10/2024 ActiveStart: 11-89-1155hSQSKQAtzw (REQUIP) 0.5 MG tablettake 1 tablet by mouth twice dailyrOPINIRole (REQUIP) 0.5 MG tablet Take 0.5 mg by mouth 2 times daily 0 Activesertraline 100 mg oral tablet (20 sources)Serotonin Reuptake InhibitorStart: 89-56-0055ywpzkychbp (Zoloft) 100 MG tablet 02/25/2023 ActiveStart: 70-78-6070xgmy 2 tablets by mouth once daily sertraline (ZOLOFT) 100 MG tablet Take 2 tablets by mouth daily Currently decreasing this medication 07/30/2020 ActiveStart: 53-19-8755zggp 1 tablet by mouth once dailysertraline (ZOLOFT) 100 MG tablet Take 100 mg by mouth daily Currently decreasing this medication ActiveStart: 40-18-6249slva 2 tablets by mouth once dailysertraline (ZOLOFT) 50 MG tablet Take 100 mg by mouth daily 2 QD 0 07/06/2019 ActiveStart: 74-63-7396wokovbsbbj (ZOLOFT) 50 MG tablet sucralfate 1000 mg oral tablet (1 source)Aluminum ComplexStart: 61-05-8276nfds 1 tablet by mouth four times daily before mealtimesucralfate (CARAFATE) 1 GM tablet Indications: Epigastric abdominal pain Take 1 tablet by mouth 4 times daily (before meals and nightly) 120 tablet 0 12/09/2019 Activesulfamethoxazole 800 mg / trimethoprim 160 mg oral tablet (8 sources)Dihydrofolate Reductase Inhibitor Antibacterial, Sulfonamide AntimicrobialStart: 04-28-2022 End: 44-78-8216ttrl 1 tablet by mouth once in the morning, then take 1 tablet by mouth once at bedtimesulfamethoxazole-trimethoprim (BACTRIM DS) 800-160 MG per tablet Indications: Acute cystitis with hematuria Take 1 tablet by mouth in the morning and 1 tablet before bedtime. Do all this for 7 days. 14 tablet 0 04/28/2022 05/05/2022 ActiveStart: 01-22-2022 End: 86-28-8410vhye 1 tablet by mouth twice dailysulfamethoxazole-trimethoprim (BACTRIM DS;SEPTRA DS) 800-160 MG per tablet Take 1 tablet by mouth 2times daily for 7 days 14 tablet 0 01/22/2022 01/29/2022 ActiveStart: 08-01-2021 End: 05-55-4299ovdw 1 tablet by mouth once dailysulfamethoxazole-trimethoprim (BACTRIM) 400-80 MG per tablet Indications: Frequent UTI , Urinary urgency , Urinary frequency Take 1 tablet by mouth daily Take one tablet after intercourse 30 tablet 10/30/2021 Activesulfamethoxazole-trimethoprim (Bactrim) 400-80 MG tablet Take by mouth Activethiamine 100 mg oral tablet (6 sources)Start: 08-20-2023 End: 32-01-5843yexe 1 tablet by mouth in the morningthiamine (Vitamin B-1) 100 MG tablet Indications: Bilateral carpal tunnel syndrome , Idiopathic progressive polyneuropathy , Restless legs Take 1 tablet (100 mg) by mouth in the morning. 30 tablet 08/19/2024 ActivetiZANidine 4 mg oral tablet (14 sources)Central alpha-2 Adrenergic AgonistStart: 40-21-8223jqWZMxlndh (ZANAFLEX) 4 MG tablet Take by mouth nightly 0 05/05/2020 Activetopiramate 50 mg oral tablet (15 sources)Start: 09-22-2023 End: 39-52-7491bpyyxdqlnn 50 MG tablet 09/22/2023 09/14/2024 Discontinued (Side effects)Start: 55-46-5217ozbnjxggdq (TOPAMAX) 25 MG tabletvilazodone hydrochloride 40 mg oral tablet (8 sources)Start: 45-00-9002pwxt 1 tablet by mouth once dailyvilazodone HCl (VIIBRYD) 40 MG TABS Indications: Depression with anxiety Take 1 tablet by mouth daily 30 tablet 3 05/27/2019 Active Completed/Discontinued Medications MedicationDrug Class(es)DatesSig (Normalized)Sig (Original)alendronic acid 70 mg oral tablet (2 sources)BisphosphonateStart: 07-01-2024 End: 61-42-5380zgzo 1 tablet by mouth once dailyalendronate (Fosamax) 70 MG tablet 1 tablet 30 minutes before the first food, beverage or medicine of the day with plain water Orally weekly for 94 days 07/01/2024 05/24/2025 Discontinued (Therapy completed)cetirizine hydrochloride 10 mg oral capsule (20 sources)Histamine-1 Receptor AntagonistStart: 06-09-2017 End: 18-95-7071ubtujfqicv 10 mg capStart: 52-89-3765Xzonhhywni HCl (ALL DAY ALLERGY) 10 MG CapStart: 13-61-4601crbr 1 tablet by mouth once dailycetirizine (ZYRTEC) 10 MG tablet TAKE 1 TABLET BY MOUTH DAILY. 30 tablet 4 02/11/2016 Fdmowg603 ml ciprofloxacin 2 mg/ml injection (4 sources)Quinolone AntimicrobialStart: 04-04-2025 End: 25-64-8231563 mg, IntraVENous, ONCE, 1 dose, On Thu04/04/25 at 2200, Antimicrobial Indications: Skin and Soft Tissue InfectionStart: 04-04-2025 End: 50-99-7320ibng 1 tablet by mouth twice dailyciprofloxacin (CIPRO) 500 MG tablet Take 1 tablet by mouth 2 times daily for 10 days 20 tablet 04/04/2025 04/14/2025 ActiveStart: 04-13-2021 End: 65-18-2729nqrn 1 tablet by mouth twice dailyciprofloxacin (CIPRO) 250 MG tablet Indications: Acute cystitis with hematuria Take 1 tablet by mouth 2 times daily for 3 days 6 tablet 0 04/13/2021 04/16/2021 Activeclindamycin (CLEOCIN) 600 mg in sodium chloride 0.9 % 50 mL IVPB (1 source)Start: 04-04-2025 End: 27-96-9766358 mg, IntraVENous, ONCE, 1 dose, On Thu04/04/25 at 2200, Antimicrobial Indications: Skin and Soft Tissue Infectiondiclofenac sodium 0.01 mg/mg topical gel (20 sources)Nonsteroidal Anti-inflammatory DrugStart: 01-06-2023 End: 43-01-0406bwoxsdldmv sodium 1 % gel 01/06/2023 05/24/2025 Discontinued (Therapy completed)Start: 38-63-3290wvimvxptuf sodium 1 % GELgadobenate dimeglumine (MULTIHANCE) injection 10 mL (2 sources)Start: 04-11-2025 End: 41-09-5788dydg 1 dose intravenously once10 mL, IntraVENous, IMG ONCE PRN, 1 dose, Starting on Thu04/11/25 at 1244, Until Thu04/11/25 at 1245,OtherStart: 06-25-2022 End: 44-52-5106drnnilkyxe dimeglumine (MULTIHANCE) injection 10 mLhydrOXYzine pamoate 50 mg oral capsule (20 sources)AntihistamineStart: 03-06-2023 End: 97-20-4480iohpNHDvahs pamoate (Vistaril) 50 MG capsule Indications: Allergy, subsequent encounter Take 1 capsule (50 mg) by mouth as needed at bedtime for itching. 90 capsule 1 03/06/2023 03/14/2025 Discontinuedicosapent ethyl 1000 mg oral capsule (15 sources)Start: 05-17-2019 End: 79-50-3123hyaf 2 capsules by mouth twice daily, then take 1 capsule by mouthIcosapent Ethyl (VASCEPA) 1 g CAPS capsule Indications: Mixed hyperlipidemia Take 2 capsules by mouth 2 times daily 120 capsule 5 05/17/2019 09/16/2020 Discontinued (LIST CLEANUP)methylPREDNISolone 125 mg injection (1 source)CorticosteroidStart: 09-16-2020 End: 38-35-0431nbqhalWGRGWRZwuvwp sodium (SOLU-MEDROL) injection 125 mgStart: 09-16-2020 End: 54-20-2632mfegsjUARPHGLwbvsh sodium (SOLU-MEDROL) injection 125 mg2 ml orphenadrine citrate 30 mg/ml injection (1 source)Muscle RelaxantStart: 09-16-2020 End: 71-87-4181aegvsrgzedsy (NORFLEX) injection 30 mg50 ml sodium chloride 9 mg/ml injection (1 source)Start: 04-04-2025 End: 51,000 mL (10.3 mL/kg), IntraVENous, at 1,935.5 mL/hr, Administer over 31 Minutes, ONCE, On Thu04/04/25 at 2200, For 1 dose Problems Active Problems Problem ClassificationProblemDateDocumented DateEpisodic/ChronicAnxiety disorders (20 sources)Anxiety; Translations: [Mixed anxiety and depressive disorder]Onset: 516153-10-4837ExwuclzIflbxzl kidney disease (20 sources)Chronic kidney disease stage 3; Translations: [Chronic renal insufficiency]Onset: 480915-95-4290RqvodmqFufazmo kidney disease (16 sources)Chronic renal insufficiency; Translations: [Chronic kidney disease] Onset: 578503-21-7289Rdomopy ulcer of skin (9 sources)Deep tissue pressure injury; Translations: [Pressure-induced deep tissue damage of other site]Onset: 918696-98-3509BvlpsjyCgisizlq mellitus with complications (20 sources)Polyneuropathy due to type 2 diabetes mellitus; Translations: [Type 2 diabetes mellitus with diabetic polyneuropathy]Onset: ChronicDisorders of lipid metabolism (20 sources)Mixed hypercholesterolemia and hypertriglyceridemia; Translations: [Mixed hyperlipidemia]Onset: 06-24-2013 Resolved: 343793-03-4669NppgybtOfinhvzyyr disorders (20 sources)Gastroesophageal reflux disease; Translations: [Gastro-esophageal reflux disease without esophagitis]Onset: 985026-14-8487GeztcstPszceuio of lower limb (2 sources)Closed fracture of second metatarsal bone; Translations: [Nondisplaced fracture of second metatarsal bone, right foot, initial encounter for closed fracture]11-22-6035GxeozzakVynudxopzsflz symptoms and ill-defined conditions (5 sources)Dysuria; Translations: [Dysuria]EpisodicHeadache; including migraine (20 sources)Migraine without aura, not refractory ; Translations: [Chronic migraine without aura, not intractable, without status migrainosus]Onset: 746783-44-4080PfvvqypHnsczmghmclaz and screening for infectious disease (4 sources)Suspected disease caused by 2019-nCoV; Translations: [Suspected COVID-19 virus infection]EpisodicInfective arthritis and osteomyelitis (except that caused by tuberculosis or sexually transmitted disease) (20 sources)Osteomyelitis, unspecified; Translations: [Infection of thoracic spine]Onset: 393276-66-0619OgjeulsGcxcoqt and fatigue (20 sources)Fatigue; Translations: [Chronic fatigue, unspecified]Onset: 210426-37-5884UomziqzEpsytugxj; nephrosis; renal sclerosis (20 sources)Chronic glomerulonephritis; Translations: [Chronic nephritic syndrome with unspecified morphologic changes]Onset: 680787-22-1890Vbmkeut Nutritional deficiencies (20 sources)Vitamin D deficiency; Translations: [Vitamin D deficiency, unspecified]Onset: 860957-77-4694IrjkmebArpbvybbueqlut (20 sources)Degenerative joint disease of ankle AND/OR foot; Translations: [Primary osteoarthritis, unspecifiedankle and foot]Onset: 324971-51-3665 ChronicOther acquired deformities (20 sources)Contracture of joint of left ankle; Translations: [Contracture, left ankle]Onset: 270231-69-9195TfmlxdiMrrpp acquired deformities (1 source)Deformity of lower limb; Translations: [Other specified acquired deformities of unspecified lower leg]65-56-4957OzddrrkfIijjd and unspecified benign neoplasm (1 source)Lipoma of skin and subcutaneous tissue of neck; Translations: [Benign lipomatous neoplasm of skin and subcutaneous tissue of head, face and neck] 99-19-0063HogberzuLdlhl and unspecified benign neoplasm (2 sources)Benign lipomatous neoplasm of skin and subcutaneous tissue of head, face and neck; Translations: [Benign lipomatous neoplasm of skin and subcutaneous tissue of head, face and neck]Onset: 05-25-6616VgjeeptgNixug circulatory disease (4 sources)Other specified symptoms and signs involving the circulatory and respiratory systems; Translations:[OTH SPEC SX SIGNS INVLV CIRC RS]Onset: 58-94-4052XviijeogWcwrc connective tissue disease (2 sources)Other muscle spasm; Translations: [Other muscle spasm]Onset: 47-23-5395XszstxgsJgmcg connective tissue disease (1 source)Foot pain; Translations: [Pain in unspecified foot]EpisodicOther connective tissue disease (1 source)Foreign body; Translations: [Residual foreign body in soft tissue] EpisodicOther connective tissue disease (2 sources)Pain in left leg; Translations: [Pain in left leg]Onset: 01-06-2023 EpisodicOther connective tissue disease (5 sources)Pain in left foot; Translations: [PAIN IN LEFT FOOT]Onset: 01-28-2023 EpisodicOther connective tissue disease (8 sources)Pain in right foot; Translations: [Pain in right foot]04-06-2025 EpisodicOther diseases of kidney and ureters (2 sources)Disorder of kidney and ureter, unspecified; Translations: [Disorder of kidney and ureter, unspecified]Onset: 20-57-3293VqlfaytuFfwaw hereditary and degenerative nervous system conditions (20 sources)Restless legs; Translations: [Restless legs syndrome]Onset: 906111-92-9825TfjwbluXtrlq lower respiratory disease (1 source)Dyspnea; Translations: [SOB (shortness of breath)]EpisodicOther lower respiratory disease (2 sources)Snoring; Translations: [Snoring]72-28-9388HyryyszeHonlq nervous system disorders (3 sources)Polyneuropathy, unspecified; Translations: [Polyneuropathy, unspecified]Onset: 01-18-0516GvpyzqmHilxz nervous system disorders (20 sources)Peripheral nerve disease ; Translations: [Polyneuropathy, unspecified]Onset: 430667-14-2638TrsoqykXnbxr nervous system disorders (20 sources)Carpal tunnel syndrome of right wrist; Translations: [Carpal tunnel syndrome, right upper limb]Onset: 093745-79-8608NvganaiMbypb nervous system disorders (20 sources)Idiopathic progressive polyneuropathy; Translations: [Idiopathic progressive neuropathy]Onset: 350455-23-0889QtljfihSvkqc nervous system disorders (20 sources)Bilateral carpal tunnel syndrome; Translations: [Carpal tunnel syndrome, bilateral upper limbs]Onset: 220271-55-2985OzylfurOedqg nervous system disorders (20 sources)Carpal tunnel syndrome of left wrist; Translations: [Carpal tunnel syndrome, left upper limb]Onset: 960179-00-8773KpahkzfBwclh nervous system disorders (20 sources)Inattention; Translations: [Attention and concentration deficit] Onset: 875206-36-0710NnwckeaBqzoq nervous system disorders (20 sources)Disorder of the peripheral nervous system; Translations: [Hereditary and idiopathic neuropathy, unspecified]Onset: 650667-42-6647YvaldalBeecr nervous system disorders (20 sources)Tarsal tunnel syndrome; Translations: [Tarsal tunnel syndrome, unspecified lower limb]Onset: 537736-06-2855JnrjwokOavef nervous system disorders (4 sources)Abnormal gait; Translations: [Unsteadiness on feet]69-80-6816Ebcnxixx Other nervous system disorders (13 sources)Carpal tunnel syndrome of right wrist; Translations: [Carpal tunnel syndrome on right]Onset: Other non-epithelial cancer of skin (15 sources)Basal cell carcinoma of face; Translations: [Basal cell carcinoma of skin of face]Onset: 129661-29-1650NtznmgtFpnec non-traumatic joint disorders (4 sources)Charcot's joint, left ankle and foot; Translations: [CHARCOTS JOINT LEFT ANKLE AND FO]Onset: 38-26-2294IektymwSbqqy non-traumatic joint disorders (3 sources)Charcot arthropathy of midfoot; Translations: [Charcot's joint, unspecified ankle and foot]57-00-0800YlghmvoVbxzg non-traumatic joint disorders (20 sources)Acute arthropathy; Translations: [Arthropathy, unspecified]Onset: 592927-10-1654UnevvdgVxjvk non-traumatic joint disorders (20 sources)Charcot's arthropathy; Translations: [Charcot's joint, left ankle and foot]Onset: 919695-37-3885LleqpnnUshoc non-traumatic joint disorders (1 source)Pain in left ankle and joints of left foot; Translations: [PAIN IN LEFT ANKLE]Onset: 39-17-0345YpxlmrzsKyifb nutritional; endocrine; and metabolic disorders (2 sources)Obesity caused by energy imbalance; Translations: [Other obesity due to excess calories]10-01-2398RgzrogmIwcyc screening for suspected conditions (not mental disorders or infectious disease) (13 sources)Elevated C-reactive protein; Translations: [Elevated C-reactive protein (CRP)]32-06-2149Cmgpd skin disorders (1 source)Mass of neck; Translations: [Localized swelling, mass and lump, neck] EpisodicOther upper respiratory disease (20 sources)Seasonal allergy; Translations: [Other seasonal allergic rhinitis] Onset: 611595-13-5325MetgijvYeeli upper respiratory disease (3 sources)Allergic rhinitis due to pollen; Translations: [Allergic rhinitis due to pollen]22-96-9475AzaxgflFiwkquph codes; unclassified (20 sources)Obstructive sleep apnea syndrome; Translations: [Obstructive sleep apnea (adult) (pediatric)]Onset: 694979-78-7596XzytfliQmtxlraz codes; unclassified (20 sources)Hypersomnia; Translations: [Hypersomnia, unspecified]Onset: 399475-47-1501WahqasqFxfgbpvk codes; unclassified (2 sources)Localized edema; Translations: [Localized edema]Onset: 01-06-2023 EpisodicResidual codes; unclassified (2 sources)Edema, generalized; Translations: [Generalized edema]04-10-2025 EpisodicSepticemia (except in labor) (20 sources)Sepsis; Translations: [Methicillin resistant Staphylococcus aureus infection]Onset: 08-15-2018 Resolved: 598028-49-3431QjxnzuqjPkcq and subcutaneous tissue infections (4 sources)Infection of toe ; Translations: [Local infection of the skin and subcutaneous tissue, unspecified]92-64-6200QbrtmnhhRlaiepeotmz; intervertebral disc disorders; other back problems (20 sources)Discitis, unspecified, thoracic region; Translations: [Degeneration of thoracic intervertebral disc]Onset: 164054-06-1711MqhpzrdZgdsxwi disorders (20 sources)Thyroid nodule; Translations: [Nontoxic single thyroid nodule]Onset: 543433-59-9200OvzygcrHxbadybdqyxq (1 source)Pressure-induced deep tissue damage of other site; Translations: [Pressure-induced deep tissue damage of other site]Onset: 27-12-2594Orkpvvy tract infections (20 sources)Acute cystitis; Translations: [Acute cystitis with hematuria]Onset: 41-32-4512RdgcamjdCxopf infection (1 source)Viral disease; Translations: [Viral infection, unspecified]Episodic Past or Other Problems Problem ClassificationProblemDateDocumented DateEpisodic/ChronicAbdominal pain (20 sources)Female genital organ symptoms; Translations: [Pelvic and perineal pain]Onset: 87-19-8503OyncqpfzLhfmkdxxc infection; unspecified site (20 sources)Methicillin resistant Staphylococcus aureus infection; Translations: [Bacteremia due to Methicillinresistant Staphylococcus aureus] Resolved: 406636-91-1700QkqkeumtVtkzhbckoz and other anemia (20 sources)Anemia; Translations: [Anemia, unspecified]Onset: 2022 14-67-4776VxykbudaEnhwpaxo mellitus without complication (20 sources)Hyperglycemia; Translations: [Hyperglycemia, unspecified]Onset: 892467-11-7468AkzertshVnsts and electrolyte disorders (20 sources)Lactic acidosis; Translations: [Acidosis]Onset: 08-15-2018 Resolved: 024274-92-8214GrenjlfkRzzfzher of lower limb (20 sources)Closed fracture of second metatarsal bone; Translations: [Nondisplaced fracture of second metatarsal bone, left foot, initial encounter for closed fracture]Onset: 13-56-2734OfwfgdwiIpshnupfw arthritis and osteomyelitis (except that caused by tuberculosis or sexually transmitted di sease) (20 sources)Suppurative arthritis; Translations: [Infective arthritis]Onset: 345543-09-2709WecjheclGzzvebe and fatigue (20 sources)Fatigue; Translations: [Other fatigue]Onset: EpisodicMedical examination/evaluation (2 sources)Encounter for general adult medical examination without abnormal findings; Translations: [Encounterfor general adult medical examination without abnormal findings]Onset: 44-16-4534NgykfegdWpuf disorders (20 sources)Depressive disorder; Translations: [Major depressive disorder, single episode, unspecified]Onset: 07-20-2012 Resolved: 611628-40-1666VwiuupxKdooymiki of unspecified nature or uncertain behavior (20 sources)Neoplasm of uncertain behavior of skin; Translations: [Neoplasm of uncertain behavior of skin]Onset: 316337-75-2372AextijkgVurzn RABBLER infection and poliomyelitis (20 sources)Extradural and subdural abscess, unspecified; Translations: [Epidural abscess]Onset: 843184-48-0671UlrmjkyoVqibg connective tissue disease (1 source)Spasm; Translations: [Spasm of muscle]EpisodicOther connective tissue disease (20 sources)Pain in left foot; Translations: [Pain in left foot]Onset: 539020-33-9062JzehzjuhLtgix connective tissue disease (20 sources)Pain in limb; Translations: [Pain in unspecified limb]Onset: 212104-74-8793KbwmxyxjPwbda connective tissue disease (20 sources)Muscle pain; Translations: [Myalgia, unspecified site]Onset: 439839-56-6399DkuznlozBnpfp connective tissue disease (20 sources)Spasm of cervical paraspinous muscle; Translations: [Other muscle spasm]Onset: 378879-03-5600DhisrdfpHkbkj connective tissue disease (20 sources)Bilateral trochanteric bursitis; Translations: [Trochanteric bursitis, right hip]Onset: 479000-33-7090FypukcxbWmcih connective tissue disease (1 source)Pain in right foot; Translations: [Pain in right foot]Onset: 37-19-4329KsjgzalnVbdwf diseases of kidney and ureters (3 sources)Chronic renal insufficiency; Translations: [Disorder of kidney and ureter, unspecified]Onset: 804141-70-0165WnakxiofEwgas nervous system disorders (20 sources)Metabolic encephalopathy; Translations: [Metabolic encephalopathy] Resolved: 498664-76-4916IvlkuclIagcs nervous system disorders (20 sources)Skin sensation disturbance; Translations: [Unspecified disturbances of skin sensation]Onset: 440816-56-7735VphlcxltLvlhf non-epithelial cancer of skin (20 sources)Basal cell carcinoma of skin; Translations: [Basal cell carcinoma of skin, unspecified]Onset: 389938-70-9376OzlsukfdXwvhl screening for suspected conditions (not mental disorders or infectious disease) (20 sources)Elevated C-reactive protein; Translations: [Elevated C-reactive protein (CRP)]Onset: 974633-49-8399FfhnpmrqFqibwxfb codes; unclassified (20 sources)Insomnia; Translations: [Insomnia, unspecified]Onset: 03-08-2023 24-37-5225AypqxyioWgwmakdiyyk; intervertebral disc disorders; other back problems (20 sources)Radiculopathy, cervical region; Translations: [Acute thoracic back pain]Onset: 64-00-111266575771-14-9248NltauwmvIjhkpkdnilfh (1 source)Patient encounter azhdoi23-70-3315 Results Test NameValueInterpretationReference RangeFacilityHemoglobin A1Con 08-03-2025 Glucose [Mass/Vol]103 mg/dLNormalMetrohealth Cleveland Heights Medical CenterComment on above:Result Comment: The ADA and AACC recommend providing the estimated average glucose result to permit better patient understanding of their HBA1c result.Performed By: #### MORPHX, CRP, BMP, CBC, SED #### [facility] [address] [place], [place] [id number] Cosmetologist: Emily George MDHbA1c (Bld) [Mass fraction]5.2 %Normal4.0-6.0[facility] Medical CenterComment on above:Performed By: #### MORPHX, CRP, BMP, CBC, SED #### [facility] [address] [place], [place] [id number] Cosmetologist: Dayan Mirza Metabolic Panelon 01-32-9756Peqps gap [Moles/Vol]9 mmol/L9 - 17 mmol/LBon [facility]ours [facility] HealthCalcium [Mass/Vol]9.7 mg/dL8.6 - 10.4 mg/dLBon Secours [facility] Hospitaly HealthChloride [Moles/Vol]102 mmol/L98 - 107 mmol/LBon [facility] HealthCO2 [Moles/Vol]27 mmol/L20 - 31 mmol/LBon [facility] HealthCreatinine [Mass/Vol]1.5 mg/dLHigh0.5 - 0.9 mg/dLBon [facility]ours [facility]y HealthEst, Glom Filt Ciog97Pon- PINFBon [facility] HospitalComment on above: These results are not [...] therapy that affects renal tubular secretion. Glucose [Mass/Vol]92 mg/dL70 - 99 mg/dLBon [facility] HospitalInterpretation and review of laboratory resultsAbnormalCarilion Tazewell Community HospitalPotassium [Moles/Vol]4.3 mmol/L3.7 - 5.3 mmol/LBon [facility] HospitalSodium [Moles/Vol] 138 mmol/L135 - 144 mmol/LBon [facility] HospitalUrea nitrogen [Mass/Vol]17 mg/dL6 - 20 mg/dLBon [facility] Medical CenterBasic Metabolic Profon 16-13-2772Juikv gap [Moles/Vol]9 mmol/LNormal9-17[facility] Comment on above:Performed By: #### MORPHX, CRP, BMP, CBC, SED #### [facility] [address] [place] [address] Cosmetologist: SHER Mirzaalcium [Mass/Vol]9.7 mg/dLNormal8.6-10.4[facility] Medical CenterComment on above:Performed By: #### MORPHX, CRP, BMP, CBC, SED #### [facility] [address] [place] [address] Cosmetologist: SHER Mirzahloride [Moles/Vol]102 mmol/COywoir66-357DmipjMetrohealth Cleveland Heights Medical CenterComment on above:Performed By: #### MORPHX, CRP, BMP, CBC, SED #### [facility] [address] [place] [address] Cosmetologist: SHER MirzaO2 [Moles/Vol]27 mmol/BBtcsnk40-23YlfjoMetrohealth Cleveland Heights Medical CenterComment on above:Performed By: #### MORPHX, CRP, BMP, CBC, SED #### [facility] [address] [place] [address] Cosmetologist: SHER Mirzareatinine [Mass/Vol]1.5 mg/dLHigh0.5-0.9[facility] Medical CenterComment on above:Performed By: #### MORPHX, CRP, BMP, CBC, SED #### [facility] [address] [place] [address] Cosmetologist: Emily George MDGFR/1.73 sq M.predicted among non-blacks MDRD (S/P/Bld) [Vol rate/Area]43 mL/min/{1.73_m2}Low>60[facility] CenterComment on above:Result Comment: These results are not [...] By: #### MORPHX, CRP, BMP, CBC, SED #### [facility] [address] [place] [address] Cosmetologist: Emily George MDGlucose [Mass/Vol]92 mg/eSBkpcga56-26KwkuzWestern Reserve HospitalComment on above:Performed By: #### MORPHX, CRP, BMP, CBC, SED #### [facility] [address] [place] [address] Cosmetologist: ANNMARIE Mirzaotassium [Moles/Vol]4.3 mmol/LNormal3.7-5.3MWestern Reserve HospitalComment on above:Performed By: #### MORPHX, CRP, BMP, CBC, SED #### [facility] [address] [place] [id number] Cosmetologist: MARIKA Mirzaodium [Moles/Vol]138 mmol/VDyhtwq022-137JuirwMetrohealth Cleveland Heights Medical CenterComment on above:Performed By: #### MORPHX, CRP, BMP, CBC, SED #### [facility] [address] [facility] [address] Cosmetologist: Emily George MDUrea nitrogen [Mass/Vol]17 mg/dLNormal6-20[facility] CenterComment on above:Performed By: #### MORPHX, CRP, BMP, CBC, SED #### [facility] [address] [place] [address] Cosmetologist: Emily George MDBariver valley behavioral health hospital Metabolic Panelon 65-18-2725Qjaqr gap [Moles/Vol]8 mmol/LLow9 - 17 mmol/LBon [facility] HealthCalcium [Mass/Vol] 10.1 mg/dL8.6 - 10.4 mg/dLBon [facility] HealthChloride [Moles/Vol]100 mmol/L 98 - 107 mmol/LBon [facility] HospitalCO2 [Moles/Vol]29 mmol/L20 - 31 mmol/LBon [facility] HospitalCreatinine [Mass/Vol]1.4 mg/dLHigh0.5 - 0.9 mg/dLBon [facility] HospitalEst, Glom Filt Widv41Beu- PINFBon [facility] Comment on above: These results are [...] secretion. Glucose [Mass/Vol]87 mg/dL70 - 99 mg/dLBon [facility] HealthPotassium [Moles/Vol]4.4 mmol/L3.7 - 5.3 mmol/LBon [facility] HospitalSodium [Moles/Vol] 137 mmol/L135 - 144 mmol/LBon [facility] HospitalUrea nitrogen [Mass/Vol]19 mg/dL6 - 20 mg/dLBon [facility] HospitalBasic Metabolic Profon 49-12-8174Aumqe gap [Moles/Vol]8 mmol/LLow9-17[facility] Medical CenterComment on above:Performed By: #### MORPHX, CRP, BMP, CBC, SED #### [facility] [address] [place] [id number] Cosmetologist: SHER Mirzaalcium [Mass/Vol]10.1 mg/dLNormal8.6-10.4[facility] Medical CenterComment on above:Performed By: #### MORPHX, CRP, BMP, CBC, SED #### [facility] [address] [place] [id number] Cosmetologist: SHER Mirzahloride [Moles/Vol]100 mmol/TThrmsi24-046YsjsgMetrohealth Cleveland Heights Medical CenterComdeckerville community hospital on above:Performed By: #### MORPHX, CRP, BMP, CBC, SED #### [facility] [address] [place] [address] Cosmetologist: Emily George MDCO2 [Moles/Vol]29 mmol/QTqepsf55-97UuwiwMetrohealth Cleveland Heights Medical CenterComment on above:Performed By: #### MORPHX, CRP, BMP, CBC, SED #### [facility] [address] [place] [id number] Cosmetologist: SHER Mirzareatinine [Mass/Vol]1.4 mg/dLHigh0.5-0.9[facility] on above:Performed By: #### MORPHX, CRP, BMP, CBC, SED #### [facility] [address] [place] [id number] Cosmetologist: Emily George MDGFR/1.73 sq M.predicted among non-blacks MDRD (S/P/Bld) [Vol rate/Area]47 mL/min/{1.73_m2}Low>60[facility] CenterComdeckerville community hospital on above:Result Comment: These results are [...] By: #### MORPHX, CRP, BMP, CBC, SED #### [facility] [address] [place] [address] Cosmetologist: Emily George MDGlucose [Mass/Vol]87 mg/nCPxescg60-48JzfpkWestern Reserve HospitalComment on above:Performed By: #### MORPHX, CRP, BMP, CBC, SED #### [facility] [address] [place] [address] Cosmetologist: ANNMARIE Mirzaotassium [Moles/Vol]4.4 mmol/LNormal3.7-5.3MWestern Reserve HospitalComment on above:Performed By: #### MORPHX, CRP, BMP, CBC, SED #### [facility] [address] [place] [address] Cosmetologist: MARIKA Mirzaodium [Moles/Vol]137 mmol/EIdishd107-481EuttaMetrohealth Cleveland Heights Medical CenterComment on above:Performed By: #### MORPHX, CRP, BMP, CBC, SED #### [facility] [address] [place] [address] Cosmetologist: Emily George MDUrea nitrogen [Mass/Vol]19 mg/dLNormal6-20[facility] CenterComment on above:Performed By: #### MORPHX, CRP, BMP, CBC, SED #### [facility] [address] [place] [address] Cosmetologist: Emily George MDC-Reactive Proteinon 52-00-1691YHC High sensitivity method [Mass/Vol]16.1 mg/LHigh0.0 - 5.0 mg/LBon [facility] CRP [Mass/Vol]16.1 mg/LHigh0.0-5.0[facility] CenterComdeckerville community hospital on above: Performed By: #### MORPHX, CRP, BMP, CBC, SED #### [facility] [address] [place] [address] Cosmetologist: Angy Mirza 80-62-9955Ztyhgazkemw distribution width (RBC) [Ratio]17.1 %High12.1 - 15.2 %[facility] Community HospitalHematocrit (Bld) [Volume fraction]34.3 %Low36.0 - 46.0 %[facility] Community HospitalHemoglobin (Bld) [Mass/Vol]11.0 g/dLLow12.0 - 16.0 g/dLBon [facility] HospitalInterpretation and review of laboratory resultsAbnormalHospital Corporation of America (RBC) [Entitic mass]28.2 pg26.0 - 34.0 pgNaval Medical Center PortsmouthHC (RBC) [Mass/Vol]32.1 g/dL 31.0 - 37.0 g/dLBon [facility] CenterV (RBC) [Entitic vol]87.9 fL80.0 - 100.0 fLCarilion Tazewell Community HospitalPlatelet mean volume (Bld) [Entitic vol]11.4 fL 6.0 - 12.0 fLCarilion Tazewell Community HospitalPlatelets (Bld) [#/Vol]218 10*3/uLBon [facility] HospitalRBC (Bld) [#/Vol]3.90 10*6/uLLow4.00 - 5.20 m/uLCarilion Tazewell Community HospitalWBC other (Bld) [#/Vol]9.9Bon [facility] Medical CenterErythrocyte distribution width (RBC) [Ratio]17.1 %High12.1-15.2[facility] River RegionComment on above:Performed By: #### MORPHX, CRP, BMP, CBC, SED #### [facility] [address] [place] [address] Cosmetologist: Emily George MDHematocrit (Bld) [Volume fraction]34.3 %Low 36.0-46.0[facility] CenterComment on above:Performed By: #### MORPHX, CRP, BMP, CBC, SED #### [facility] [address] [place] [id number] Cosmetologist: Emily George MDHemoglobin (Bld) [Mass/Vol]11.0 g/dLLow12.0-16.0 [facility] CenterComment on above:Performed By: #### MORPHX, CRP, BMP, CBC, SED #### [facility] [address] [place] [address] Cosmetologist: ELISABET MirzaCH (RBC) [Entitic mass]28.2 nvWhjoee99.0-34.0 [facility] CenterComment on above:Performed By: #### MORPHX, CRP, BMP, CBC, SED #### [facility] [address] [place] [id number] Cosmetologist: VINCENT MirzaC (RBC) [Mass/Vol]32.1 g/eIOowiln35.0-37.0[facility] CenterComment on above:Performed By: #### MORPHX, CRP, BMP, CBC, SED #### [facility] [address] [place] [id number] Cosmetologist: ELISABET MirzaCV (RBC) [Entitic vol]87.9 qLJvhksl64.0-100.0 [facility] CenterComment on above:Performed By: #### MORPHX, CRP, BMP, CBC, SED #### [facility] [address] [place] [id number] Cosmetologist: ANNMARIE Mirzalatelet mean volume (Bld) [Entitic vol]11.4 fL Normal6.0-12.0[facility] Medical CenterComment on above:Performed By: #### MORPHX, CRP, BMP, CBC, SED #### [facility] [address] [id number] Cosmetologist: Terrence Mirza (Bld) [#/Vol]218 10*3/yUObvbbg792-686 [facility] CenterComdeck[facility] on above:Performed By: #### MORPHX, CRP, BMP, CBC, SED #### [facility] [address] [place], [place] [id number] Cosmetologist: ELMO Mirza (Bld) [#/Vol]3.90 10*6/uLLow4.00-5.20[facility] on above:Performed By: #### MORPHX, CRP, BMP, CBC, SED #### [facility] [address] [place] [address] Cosmetologist: LLOYD Mirza (Bld) [#/Vol]9.9 10*3/uLNormal3.5-11.0[facility] on above:Performed By: #### MORPHX, CRP, BMP, CBC, SED #### [facility] [address], [place] [id number] Cosmetologist: Kiara Mirza Panel Informationon [id number] and review of laboratory resultsAbBon Secours Mary Immaculate Hospitaldimentation Rateon [id number] Photometric method (Bld) [Velocity]42HighCarilion Tazewell Community HospitalInterpretation and review of laboratory resultsAbHans P. Peterson Memorial HospitalSedimentation Rate42 mm/HrHigh0-20[facility] CenterComdeckerville [facility] hospital on above:Performed By: #### MORPHX, CRP, BMP, CBC, SED #### [facility] [address] [place] [address] Cosmetologist: SHER Mirzareatinine, Random Urineon [id number] (U) [Mass/Vol]52.4 mg/dL28.0 - 217.0 mg/dLBon Secours Mercy HealthComment on above:Reference range defined for 1st morning urineCreatinine,Random Uron 32-32-5949Wmcbiiliie [Mass/Vol]52.4 mg/nQVwysfl15.0-217.0[facility] Comment on above:Result Comment: Reference range defined for 1st morning urine Performed By: #### MORPHX, CRP, BMP, CBC, SED #### [facility] [address] [place] [address] Cosmetologist: Kiara Mirza Panel Informationon [id number] [facility], [place] 93-48-7872Kvdqzprvup.intact [Mass/Vol]40.0 pg/mL17.9 - 58.6 pg/mLBon [facility] HospitalBon [facility], Jkookp96.0 pg/mL Enuxtt91.9-58.6MWestern Reserve HospitalComment on above:Performed By: #### MORPHX, CRP, BMP, CBC, SED #### [facility] [address] [place] [address] Cosmetologist: Emily George MDProtein, urine, randomon [id number] (U) [Mass/Vol]mg/dLmg/dLBon [facility] HospitalComment on above:No normal range established.Protein,Tot,Goldvein Uron [id number] Prot. Conc.<4NormalMetrohealth Cleveland Heights Medical CenterComment on above:Result Comment: No normal range established.Performed By: #### MORPHX, CRP, BMP, CBC, SED #### [facility] [address] [place] [address] Cosmetologist: LASHAY Mirzaenal Function Panelon [id number] [Mass/Vol]4.2 g/dL3.5 - 5.2 g/dLBon [facility] HospitalAnion gap [Moles/Vol]12 mmol/L9 - 17 mmol/LBon [facility] HospitalCalcium [Mass/Vol]9.2 mg/dL8.6 - 10.4 mg/dLBon [facility] HospitalChloride [Moles/Vol]99 mmol/L98 - 107 mmol/LBon [facility] HospitalCO2 [Moles/Vol]24 mmol/L20 - 31 mmol/LBon [facility] HospitalCreatinine [Mass/Vol]1.3 mg/dLHigh0.5 - 0.9 mg/dLBon [facility] Est, Glom Filt Ydmp63Tfs- PINFBon [facility] HospitalComment on above: These results are not [...] that affects renal tubular secretion. Glucose [Mass/Vol]110 mg/wTAixo31 - 99 mg/dLBon [facility] Interpretation and review of laboratory resultsAbnormalBon [facility] Phosphate [Mass/Vol]3.9 mg/dL2.6 - 4.5 mg/dLBon [facility] HospitalPotassium [Moles/Vol]4.5 mmol/L3.7 - 5.3 mmol/LBon [facility] HospitalSodium [Moles/Vol] 135 mmol/L135 - 144 mmol/LBon [facility] HospitalUrea nitrogen [Mass/Vol]23 mg/dLHigh6 - 20 mg/dLBon [facility] Medical CenterAlbumin [Mass/Vol]4.2 g/dLNormal3.5-5.2MercLos Medanos Community HospitalComment on above:Performed By: #### MORPHX, CRP, BMP, CBC, SED #### [facility] [address] [place] [address] Cosmetologist: Myles Mirza gap [Moles/Vol]12 mmol/LNormal9-17[facility] CenterComdeckerville community hospital on above:Performed By: #### MORPHX, CRP, BMP, CBC, SED #### [facility] [address] [place] [address] Cosmetologist: SHER Mirzaalcium [Mass/Vol]9.2 mg/dLNormal8.6-10.4[facility] Medical CenterComment on above:Performed By: #### MORPHX, CRP, BMP, CBC, SED #### [facility] [address] [id number] Cosmetologist: SHER Mirzahloride [Moles/Vol]99 mmol/EKteptf44-699QrjkiMetrohealth Cleveland Heights Medical CenterComdeckerville community hospital on above:Performed By: #### MORPHX, CRP, BMP, CBC, SED #### [facility] [address] 29248[address] Cosmetologist: SHER MirzaO2 [Moles/Vol]24 mmol/IFrunee02-43MuhxdMetrohealth Cleveland Heights Medical CenterComdeckerville community hospital on above:Performed By: #### MORPHX, CRP, BMP, CBC, SED #### [facility] [address] [place] [address] Cosmetologist: SHER Mirzareatinine [Mass/Vol]1.3 mg/dLHigh0.5-0.9[facility] on above:Performed By: #### MORPHX, CRP, BMP, CBC, SED #### [facility] [address] [id number] Cosmetologist: Emily George MDGFR/1.73 sq M.predicted among non-blacks MDRD (S/P/Bld) [Vol rate/Area]51 mL/min/{1.73_m2}Low>60[facility] CenterComdeckerville community hospital on above:Result Comment: These results are [...] By: #### MORPHX, CRP, BMP, CBC, SED #### [facility] [address] [place] [address] Cosmetologist: Emily George MDGlucose [Mass/Vol]110 mg/wERaon83-07JnpehWestern Reserve HospitalComment on above:Performed By: #### MORPHX, CRP, BMP, CBC, SED #### [facility] [address] [place] [address] Cosmetologist: ANNMARIE Mirzahosphorus, Inorg.3.9 mg/dLNormal2.6-4.5[facility] Medical CenterComment on above:Performed By: #### MORPHX, CRP, BMP, CBC, SED #### [facility] [address] [place] [address] Cosmetologist: ANNMARIE Mirzaotassium [Moles/Vol]4.5 mmol/LNormal3.7-5.3MWestern Reserve HospitalComment on above:Performed By: #### MORPHX, CRP, BMP, CBC, SED #### [facility] [address] [place] [address] Cosmetologist: MARIKA Mirzaodium [Moles/Vol]135 mmol/HHiukxq659-738ArbdyMetrohealth Cleveland Heights Medical CenterComment on above:Performed By: #### MORPHX, CRP, BMP, CBC, SED #### [facility] [address] [place] [address] Cosmetologist: Emily George MDUrea nitrogen [Mass/Vol]23 mg/dLHigh6-20[facility] CenterComment on above:Performed By: #### MORPHX, CRP, BMP, CBC, SED #### [facility] [address] [place] [address] Cosmetologist: Emily George MDVitamin D 25 Hydroxyon [id number]-wsdyjldsveqxjg D3 [Mass/Vol]29.2 ng/mLLow30.0 - 100.0 ng/mLCarilion Tazewell Community HospitalComment on above: Reference Range: Vitamin D status Range Deficiency <20 ng/mL Mild Deficiency 20-30 ng/mL Sufficiency 30-100 ng/mL Toxicity >100 ng/mL Interpretation and review of laboratory resultsAbnormalBon [facility] Bon [facility] HospitalVitamin D 25 OHon 38-20-5783Tzfbdik D 25 OH29.2 ng/mLLow 30.0-100.0[facility] CenterComdeckerville community hospital on above:Result Comment: Reference Range: Vitamin D status Range Deficiency <20 ng/mL Mild Deficiency 20-30 ng/mL Sufficiency 30-100 ng/mL Toxicity >100 ng/mLPerformed By: #### MORPHX, CRP, BMP, CBC, SED #### [facility] [address] [place] [address] Cosmetologist: ARPAN Mirza CERVICAL SPINE COMPLETE 4-5 VIEWSon 05-24-2025 XR CERVICAL SPINE COMPLETE 4-5 VIEWSEXAMINATION: XR CERVICAL [...] osseous abnormality. ELECTRONICALLY SIGNED BY: Gregorio Davila, DONormalNot AvailableBasic Metabolic Panelon [id number] gap [Moles/Vol]12 mmol/L9 - 17 mmol/LBon [facility] HospitalCalcium [Mass/Vol]9.3 mg/dL8.6 - 10.4 mg/dLBon [facility] Chloride [Moles/Vol]104 mmol/L98 - 107 mmol/LBon [facility] HospitalCO2 [Moles/Vol]22 mmol/L20 - 31 mmol/LBon [facility] HospitalCreatinine [Mass/Vol] 1.3 mg/dLHigh0.5 - 0.9 mg/dLBon [facility] HospitalEst, Glom Filt Xmjy90Zue- PINFBon [facility] HospitalComment on above: These results are not [...] that affects renal tubular secretion. Glucose [Mass/Vol]131 mg/dJPvbf97 - 99 mg/dLBon [facility] HospitalPotassium [Moles/Vol]4.4 mmol/L3.7 - 5.3 mmol/LBon [facility] HospitalSodium [Moles/Vol] 138 mmol/L135 - 144 mmol/LBon [facility] HospitalUrea nitrogen [Mass/Vol]17 mg/dL6 - 20 mg/dLBon [facility] HospitalBasic Metabolic Profon 68-98-2235Ldgph gap [Moles/Vol]12 mmol/LNormal9-17[facility] CenterComment on above: Performed By: #### MORPHX, CRP, BMP, CBC, SED #### [facility] [address] [place] [address] Cosmetologist: SHER Mirzaalcium [Mass/Vol]9.3 mg/dLNormal8.6-10.4[facility] CenterComment on above:Performed By: #### MORPHX, CRP, BMP, CBC, SED #### [facility] [address] [id number] Cosmetologist: SHER Mirzahloride [Moles/Vol]104 mmol/SDhslns10-974SaaypMetrohealth Cleveland Heights Medical CenterComdeckerville community hospital on above:Performed By: #### MORPHX, CRP, BMP, CBC, SED #### [facility] [address] [address] Cosmetologist: SHER MirzaO2 [Moles/Vol]22 mmol/HQxnhxe11-15NrqshMetrohealth Cleveland Heights Medical CenterComment on above:Performed By: #### MORPHX, CRP, BMP, CBC, SED #### [facility] [address] [address]248[address] Cosmetologist: SHER Mirzareatinine [Mass/Vol]1.3 mg/dLHigh0.5-0.9[facility] CenterComdeckerville community hospital on above:Performed By: #### MORPHX, CRP, BMP, CBC, SED #### [facility] [address] [place] [address] Cosmetologist: Emily George MDGFR/1.73 sq M.predicted among non-blacks MDRD (S/P/Bld) [Vol rate/Area]52 mL/min/{1.73_m2}Low>60[facility] CenterComment on above:Result Comment: These results are not [...] By: #### MORPHX, CRP, BMP, CBC, SED #### [facility] [address] [address] Cosmetologist: Emily George MDGlucose [Mass/Vol]131 mg/pUIcrk78-91IujhhWestern Reserve HospitalComment on above:Performed By: #### MORPHX, CRP, BMP, CBC, SED #### [facility] [address] [address]248[address] Cosmetologist: ANNMARIE Mirzaotassium [Moles/Vol]4.4 mmol/LNormal3.7-5.3MWestern Reserve HospitalComdeckerville community hospital on above:Performed By: #### MORPHX, CRP, BMP, CBC, SED #### [facility] [address] [place] [address] Cosmetologist: MARIKA Mirzaodium [Moles/Vol]138 mmol/PDjcvcn421-802XfoqeMetrohealth Cleveland Heights Medical CenterComdeckerville community hospital on above:Performed By: #### MORPHX, CRP, BMP, CBC, SED #### [facility] [address] [place] [address] Cosmetologist: Emily George MDUrea nitrogen [Mass/Vol]17 mg/dLNormal6-20[facility] CenterComment on above:Performed By: #### MORPHX, CRP, BMP, CBC, SED #### [facility] [address] [place] [address] Cosmetologist: SHER Mirza-Reactive Proteinon [id number] High sensitivity method [Mass/Vol]6.2 mg/LHigh0.0 - 5.0 mg/LBon [facility] CRP [Mass/Vol]6.2 mg/LHigh0.0-5.0[facility] CenterComment on above: Performed By: #### MORPHX, CRP, BMP, CBC, SED #### [facility] [address] [address] Cosmetologist: SHER MirzaBCon 65-73-6109Ixemoivneri distribution width (RBC) [Ratio]19.4 %High12.1 - 15.2 %Bon [facility] HospitalHematocrit (Bld) [Volume fraction]32.3 %Low36.0 - 46.0 %[facility] Community HospitalHemoglobin (Bld) [Mass/Vol]9.9 g/dLLow12.0 - 16.0 g/dLBon [facility] HospitalInterpretation and review of laboratory resultsAbnormalBon [facility] CenterH (RBC) [Entitic mass]28.0 pg26.0 - 34.0 pgBon [facility] CenterHC (RBC) [Mass/Vol]30.7 g/dL Low31.0 - 37.0 g/dLBon Secours Mercy HealthMCV (RBC) [Entitic vol]91.2 fL80.0 - 100.0 fLBon [facility] HospitalPlatelet mean volume (Bld) [Entitic vol]11.7 fL 6.0 - 12.0 fLBon [facility] HealthPlatelets (Bld) [#/Vol]154 10*3/uLBon [facility] HospitalRBC (Bld) [#/Vol]3.54 10*6/uLLow4.00 - 5.20 m/uLBon [facility] HospitalWBC other (Bld) [#/Vol]3.8Bon [facility] Medical CenterErythrocyte distribution width (RBC) [Ratio]19.4 %High12.1-15.2MWestern Reserve HospitalComment on above:Performed By: #### MORPHX, CRP, BMP, CBC, SED #### [facility] [address] [place] [address] Cosmetologist: Emily George MDHematocrit (Bld) [Volume fraction]32.3 %Low 36.0-46.0[facility] CenterComment on above:Performed By: #### MORPHX, CRP, BMP, CBC, SED #### [facility] [address] [place] [address] Cosmetologist: Emily George MDHemoglobin (Bld) [Mass/Vol]9.9 g/dLLow12.0-16.0 [facility] CenterComment on above:Performed By: #### MORPHX, CRP, BMP, CBC, SED #### [facility] [address] [place] [address] Cosmetologist: ELISABET MirzaCH (RBC) [Entitic mass]28.0 qvFgscmx13.0-34.0 [facility] CenterComdeckerville [facility] hospital on above:Performed By: #### MORPHX, CRP, BMP, CBC, SED #### [facility] [address] [place] [address] Cosmetologist: VINCENT MirzaC (RBC) [Mass/Vol]30.7 g/dLLow31.0-37.0[facility] CenterComment on above:Performed By: #### MORPHX, CRP, BMP, CBC, SED #### [facility] [address] [place] [address] Cosmetologist: ELISABET MirzaCV (RBC) [Entitic vol]91.2 fKVxhzdq09.0-100.0 [facility] CenterComment on above:Performed By: #### MORPHX, CRP, BMP, CBC, SED #### [facility] [address] [address] Cosmetologist: Haja Mirza mean volume (Bld) [Entitic vol]11.7 fL Normal6.0-12.0[facility] CenterComment on above:Performed By: #### MORPHX, CRP, BMP, CBC, SED #### [facility] [address] [place] [address] Cosmetologist: Terrence Mirza (Bld) [#/Vol]154 10*3/kEDtffmk865-904 [facility] CenterComdeckerville [facility] hospital on above:Performed By: #### MORPHX, CRP, BMP, CBC, SED #### [facility] [address] [place] [address] Cosmetologist: ELMO Mirza (Bld) [#/Vol]3.54 10*6/uLLow4.00-5.20[facility] CenterComment on above:Performed By: #### MORPHX, CRP, BMP, CBC, SED #### [facility] [address] [place] [address] Cosmetologist: LLOYD Mirza (Bld) [#/Vol]3.8 10*3/uLNormal3.5-11.0[facility] CenterComment on above:Performed By: #### MORPHX, CRP, BMP, CBC, SED #### [facility] [address] [place] [address] Cosmetologist: ELISABET MirzaORPHOLOGY CHECKon [id number] Rehan (Bld) [Interp]MODERATE ANISOCYTOSISCarilion Franklin [facility] Hospital Morphology Checkon [id number] Rehan (Bld) [Interp]MODERATENormalMerClifton Springs Hospital & ClinicComment on above:Result Comment: ANISOCYTOSISPerformed By: #### MORPHX, CRP, BMP, CBC, SED #### [facility] [address] [id number] Cosmetologist: Emily George MDNo Panel Informationon [id number] and review of laboratory resultsAbnormalCarilion Franklin Memorial HospitalSedimentation Rateon [id number] Rate19 mm/HrNormal0-20 [facility] CenterComdeckerville [facility] hospital on above:Performed By: #### MORPHX, CRP, BMP, CBC, SED #### [facility] [address] [place] [address] Cosmetologist: Emily George MDESR Photometric method (Bld) [Velocity]19Bon [facility] Medical CenterCom Metabolic Profon 04-14-2025 Albumin [Mass/Vol]4.2 g/dLNormal3.5-5.2MWestern Reserve HospitalComdeckerville community hospital on above: Performed By: #### LIPR, GLYHGB ####[facility] [address] [place], [place] [id number] Lab Director: Placido Pierce MD#### CP ####[facility] [address] [place] [address] Lab Director: Emily George MD#### INSU ####[facility] T[address]ktbddzq[address] [place] [address] Lab Director: Placido Pierce, [facility] Geu[address] [place], [place] [phone] Director: Emily George MD Albumin/Glob Ratio1.8Tjqhas7.0-2.5[facility] Medical CenterComment on above: Performed By: #### LIPR, GLYHGB ####[facility] [address]jjnh[address] [place] [address] Lab Director: Placido Pierce MD#### CP ####[facility] Jov5910 [place], [place] [phone] Director: Emily George MD#### INSU ####[facility] X[address]wwt[address] [place], [place] [phone] Director: Placido Pierce, [facility] Zhu5652 [place], [place] [phone] Director: Emily George MD Alkaline Ivxc565 U/GFyjb26-699ZdkcnMetrohealth Cleveland Heights Medical CenterComment on above:Performed By: #### KINDRA GLYHGB ####[facility] [address]udcf[address] [place] [address] Lab Director: Placido Pierce MD#### CP ####[facility] Ata8870 [place], [place] [phone] Director: Emily George MD#### INSU ####[facility] [address]jvmlqb1792 [place] [address] Lab Director: Placido Pierce, [facility] Mmd9710 [place], [place] [phone] Director: Emily George MD ALT [Catalytic activity/Vol]23 U/LNormal5-33[facility] CenterComment on above:Performed By: #### LIPR, GLYHGB ####[facility] [address]be[address] [place] [address] Lab Director: Placido Pierce MD#### CP ####[facility] Por[address]017 [place] [phone] Director: Emily George MD#### INSU ####[facility] Isfconmqfxqn8830 [place] [address] Lab Director: Placido Pierce, [facility] Qie0730 [place] [address] Lab Director: Talisha Mirzaon gap [Moles/Vol]14 mmol/LNormal9-17[facility] Comment on above:Performed By: #### LIPR, GLYHGB ####[facility] M[address]rccsmxo0853 [place] [address] Lab Director: Placido Pierce MD#### CP ####[facility] Rra6958 [place] [phone] Director: Emily George MD#### INSU ####[facility] [address]kqgxrmhxkou3680 [place] [address] Lab Director: Placido Pierce [facility] Ojx4511 [place] [address] Lab Director: Emily George MDAST [Catalytic activity/Vol]22 U/LNormal<32[facility] CenterComment on above:Performed By: #### LIPR, GLYHGB ####[facility] [address]uf[address] [place] [address] Lab Director: Placido Pierce MD#### CP ####[facility] Slf4489 [place] [address] Lab Director: Emily George MD#### INSU ####[facility] Awftqrnugpzu2399 [place] [address] Lab Director: Placido Pierce [facility] Omx0067 [place] [address] Lab Director: Emily George MDBilirubin [Mass/Vol]0.5 mg/dL Normal0.3-1.2MWestern Reserve HospitalComment on above:Performed By: #### LIPR, GLYHGB ####[facility] [address]orbjk[address] [place], [place] [phone] Director: Placido Pierce MD#### CP ####[facility] Rzf5653 [place], [place] [phone] Director: Emily George MD#### INSU ####[facility] [address] [place], [place] [phone] Director: Plac[facility] PierceS[facility] Zqs0154 [place], [place] [phone] Director: SHER Mirzaalcium [Mass/Vol] 9.4 mg/dLNormal8.6-10.4[facility] CenterComment on above:Performed By: #### LIPR, GLYHGB ####[facility] Itpwluipvefb3713 [place], [place] [phone] Director: Placido Pierce MD#### CP ####[facility] Cmy2884 [place], [place] [phone] Director: Emily George MD#### INSU ####[facility] [address] [place], [place] [phone] Director: Placido Pierce, [facility] Yhu4986 [place], [place] [phone] Director: Emily George MD Chloride [Moles/Vol]99 mmol/MAfvaxx71-806ZtnxtMetrohealth Cleveland Heights Medical CenterComment on above: Performed By: #### LIPR, GLYHGB ####[facility] [address]bu[address]wozosc[address] [place], [place] [phone] Director: Placido Pierce MD#### CP ####[facility] Trh3444 [place] [address] Lab Director: Emily George MD#### INSU ####[address] [place] [address] Lab Director: Placido Pierce, [facility] [address] [place] [address] [phone] Director: Emily George MD CO2 [Moles/Vol]26 mmol/QEeosxr51-31EhdgsMetrohealth Cleveland Heights Medical CenterComment on above: Performed By: #### LIPR, GLYHGB ####[address] [place], [place] [phone] Director: Placido Pierce MD#### CP ####[address] [address] Lab Director: Emily George MD#### INSU ####[address] [address] Lab Director: Placido Pierce, [address] [address] Lab Director: Emily George MD Creatinine [Mass/Vol]1.4 mg/dLHigh0.5-0.9[facility] CenterComment on above: Performed By: #### LIPR, GLYHGB ####[facility] Wty[address]jvlmqyb0619 [place] [address] Lab Director: Placido Pierce MD#### CP ####[facility] Mff0935 [place], [place] [phone] Director: Emily George MD#### INSU ####[address] [address] Lab Director: Placido Pierce, [facility] [address] [place], [place] [phone] Director: Emily George MD GFR/1.73 sq M.predicted among non-blacks MDRD (S/P/Bld) [Vol rate/Area]47 mL/min/{1.73_m2}Low>60[facility] Medical CenterComment on above:Result Comment: These results are not [...] that affects renal tubular secretion.Performed By: #### LIPMeka GLYHGB ####[address] [place], [place] [phone] Director: Placido Pierce MD#### CP ####[facility] Mgm1524 [place], [place] [phone] Director: Emily George MD#### INSU ####[address] [place], [place] [phone] Director: Placido Pierce, [facility] Jji5440 [place], [place] [phone] Director: Emily George MDGlucose [Mass/Vol]114 mg/dLHigh 70-99MWestern Reserve HospitalComment on above:Performed By: #### LIPR, GLYHGB ####[facility] [address] [place], [place] [phone] Director: Placido Pierce MD#### CP ####[facility] Uai3669 [place], [place] [phone] Director: Emily George MD#### INSU ####[facility] [address]atezkt[address] [place] [address] Lab Director: Placido Pierce, [facility] Jrb7417 [place] [address] Lab Director: ANNMARIE Mirzaotassium [Moles/Vol]4.1 mmol/L Normal3.7-5.3MWestern Reserve HospitalComment on above:Performed By: #### LIPR, GLYHGB ####[facility] [address] [place] [address] Lab Director: Placido Pierce MD#### CP ####[facility] [address] [place] [address] Lab Director: Emily George MD#### INSU ####[address] [address] Lab Director: Placido Pierce, [facility] [address] [place] [address] Lab Director: ANNMARIE Mirzarotein [Mass/Vol] 7.2 g/dLNormal6.4-8.3MWestern Reserve HospitalComment on above:Performed By: #### LIPR, GLYHGB ####[address] [phone] Director: Placido Pierce MD#### CP ####[facility] [address] [place] [address] Lab Director: Emily George MD#### INSU ####[address] [address] Lab Director: Placido Pierce, [facility] Gar[address] [place] [address] Lab Director: Emily George MD Sodium [Moles/Vol]139 mmol/QPktnmr751-518Ijkbf [facility]ard HospitalComment on above: Performed By: #### LIPR, GLYHGB ####[facility] [address]ux[address]uywppx3691 [place] [address] Lab Director: Placido Pierce MD#### CP ####[facility] Oem[address]447 [place] [address] Lab Director: Emily George MD#### INSU ####[facility] Trcyrjbqdynw1724 [place] [address] Lab Director: Placido Pierce, [facility] Tje3942 [place] [address] Lab Director: Emily George MD Urea nitrogen [Mass/Vol]18 mg/dLNormal6-20[facility] Medical CenterComment on above:Performed By: #### LIPR, GLYHGB ####[facility] [place], [place] [phone] Director: Placido Pierce MD#### CP ####[facility] Iub5394 [place] [phone] Director: Emily eGorge MD#### INSU ####[facility] [place] [address] Lab Director: Placido Pierce, [facility] Eip8371 [place] [address] Lab Director: SHER Mizraomprehensive Metabolic Panelon 39-70-2270Xybasfq [Mass/Vol]4.2 g/dL3.5 - 5.2 g/dLBon [facility] HospitalAlbumin/Globulin [Mass ratio]1.4 {ratio}1.0 - 2.5Bon [facility] HospitalALP [Catalytic activity/Vol]109 U/LHigh 35 - 104 U/LBon [facility] HospitalALT [Catalytic activity/Vol]23 U/L5 - 33 U/L Bon [facility] HospitalAnion gap [Moles/Vol]14 mmol/L9 - 17 mmol/LBon [facility] HospitalAST [Catalytic activity/Vol]22 U/LNINF - 32 U/LBon [facility] HospitalBilirubin [Mass/Vol]0.5 mg/dL0.3 - 1.2 mg/dLBon [facility] Calcium [Mass/Vol]9.4 mg/dL8.6 - 10.4 mg/dLBon [facility] HospitalChloride [Moles/Vol]99 mmol/L98 - 107 mmol/LBon [facility] HospitalCO2 [Moles/Vol]26 mmol/L20 - 31 mmol/LBon [facility] HospitalCreatinine [Mass/Vol]1.4 mg/dLHigh 0.5 - 0.9 mg/dLBon [facility] HospitalEst, Glom Filt Jltz42Ldj- PINFBon [facility] HospitalComment on above: These results are not [...] that affects renal tubular secretion. Glucose [Mass/Vol]114 mg/uXPuvy98 - 99 mg/dLBon [facility] Interpretation and review of laboratory resultsAbnormalCarilion Tazewell Community Hospital Potassium [Moles/Vol]4.1 mmol/L3.7 - 5.3 mmol/LBon [facility] HospitalProtein [Mass/Vol]7.2 g/dL6.4 - 8.3 g/dLBon [facility] HospitalSodium [Moles/Vol]139 mmol/L135 - 144 mmol/LBon [facility] HospitalUrea nitrogen [Mass/Vol]18 mg/dL6 - 20 mg/dLBon [facility] Medical CenterHemoglobin A1Con 53-45-0508Yngfons glucose Estimated from glycated hemoglobin (Bld) [Mass/Vol]123 mg/dLBon [facility] HospitalComment on above:The ADA and AACC recommend providing the estimated average glucose result to permit better patient understanding of their HBA1c result. HbA1c (Bld) [Mass fraction]5.9 %4.0 - 6.0 %Bon [facility] HospitalBon [facility] HospitalGlucose [Mass/Vol]123 mg/dLNormOhioHealth O'Bleness HospitalComment on above:Result Comment: The ADA and AACC recommend providing the estimated average glucose result to permit better patient understanding of their HBA1c result.Performed By: #### LIPR, GLYHGB ####[facility] [address]xs[address] [place], [place] [phone] Director: Placido Pierce MD#### CP ####[facility] Uza2258 [place], [place] [phone] Director: Emily George MD#### INSU ####[facility] Tiilw[address]ftty[address] [place], [place] [phone] Director: Placido Pierce, [facility] O[address] [place] [address])[phone] Director: Emily George MD HbA1c (Bld) [Mass fraction]5.9 %Normal4.0-6.0[facility] Medical CenterComment on above:Performed By: #### LIPR, GLYHGB ####[facility] Ylbj[address]al6[address] [place], [place] [phone] Director: Placido Pierce MD#### CP ####[facility] Xjv0851 [place], [place] [phone] Director: Emily George MD#### INSU ####[facility] Vfstgbqreaid8298 [place], [place] [phone] Director: Placido Pierce, [facility] Gbw0073 [place], [place] [address])[phone] Director: Emily George MDInsulinon 75-39-0043Ptdrsdl66.0 mU/LNUpper Valley Medical Center Comment on above:Performed By: #### LIPR, GLYHGB ####[facility] [address]fsbg[address] [place] [address] Lab Director: Placido Pierce MD#### CP ####[facility] Ixe5835 [place] [phone] Director: Emily George MD#### INSU ####[address] [phone] Director: Placido Pierce [facility] Z[address] [place] [address] Lab Director: Richard Mirza RangeNormalMetrohealth Cleveland Heights Medical CenterComment on above: Result Comment: Fastin.6-24.9 30 min: 20-112 60 min: 29-88 90 min: 26-84 120 min: 22-79Performed By: #### LIPR, GLYHGB ####[address] [phone] Director: Placido Pierce MD#### CP ####[facility] Yfj[address] [place] [phone] Director: Emily George MD#### INSU ####[address] [address] Lab Director: Placido Pierce [facility] [address] [place] [address] Lab Director: SHER Mirzaollection Info.FASTINGNormalMetrohealth Cleveland Heights Medical CenterComdeckerville community hospital on above:Performed By: #### LIPR, GLYHGB ####[facility] Duxsdagywbec7766 [place], [place] [phone] Director: Placido Pierce MD#### CP ####[facility] Vnk[address] [place] [address] [phone] Director: Emily George MD#### INSU ####[address] [place] [address] Lab Director: Placido Pierce, [facility] Wuz[address] [place], [place] [phone] lab Director: Emily George MDInsulin, Totalon 73-61-7795Slzanhx64.0 mU/LBon [facility] HospitalInsulin CommentFASTChesapeake Regional Medical CenterInsulin Reference Range:[facility] Community HospitalComment on above:Fastin.6-24.9 30 min: 20-112 60 min: 29-88 90 min: 26-84 120 min: 22-79 Lipid Panelon 24-29-6651Mwqicmwlmqo [Mass/Vol]158 mg/dL0 - 199 mg/dLBon [facility] HospitalComment on above: Cholesterol Guidelines: <200 Desirable 200-240 Borderline >240 Undesirable Cholesterol in HDL [Mass/Vol]31 mg/dLLow40 - PINF mg/dLBSentara Obici Hospital Comment on above: HDL Guidelines: <40 Undesirable 40-59 Borderline >59 Desirable Cholesterol in LDL [Mass/Vol]59 mg/dL0 - 100 mg/dLBSentara Obici Hospital Comment on above: LDL Guidelines: <100 Desirable 100-129 Near to/above Desirable 130-159 Borderline >159 Undesirable Direct (measured) LDL and calculated LDL are not interchangeable tests. Cholesterol in VLDL [Mass/Vol]68 mg/dLHigh1 - 30 mg/dLBon [facility] Cholesterol.total/Cholesterol in HDL [Mass ratio]5.1 {ratio}HighNINF - 5.0[facility] Community HospitalInterpretation and review of laboratory resultsAbnormalCarilion Tazewell Community HospitalTriglyceride [Mass/Vol]341 mg/dLHighNINF - 150 mg/dLBon [facility] HospitalComment on above: Triglyceride Guidelines: <150 Desirable 150-199 Borderline 200-499 High >499 Very high Based on AHA Guidelines for fasting triglyceride, July 2012. Lipid Profileon 51-34-4727Zwmnrqlhysd [Mass/Vol]158 mg/dLNormal0-199[facility] Medical CenterComment on above:Result Comment: Cholesterol Guidelines: <200 Desirable 200-240 Borderline >240 UndesirablePerformed By: #### LIPR, GLYHGB ####[facility] Pexvgfeycfkm4240 [place], [place] [phone] Director: Placido Pierce MD#### CP ####[facility] Ggs4412 [place], [place] [phone] Director: Emily George MD#### INSU ####[address] [phone] Director: Placido Pierce, [facility] Nlp0102 [place] [address] Lab Director: Emily George MDCholesterol in HDL [Mass/Vol]31 mg/dLLow>40MerClifton Springs Hospital & ClinicComment on above:Result Comment: HDL Guidelines: <40 Undesirable 40-59 Borderline >59 DesirablePerformed By: #### LIPR, GLYHGB ####[address] [phone] Director: Placido Pierce MD#### CP ####[facility] Itj5581 [place] [phone] Director: Emily George MD#### INSU ####[address] [phone] Director: Placido Pierce, [facility] Enr4747 [place], [place] [address])[phone] Director: SHER Mirzaholesterol in LDL [Mass/Vol]59 mg/dLNormal0-100[facility] South Campusment on above:Result Comment: LDL Guidelines: <100 Desirable 100-129 Near to/above Desirable 130-159 Borderline >159 Undesirable Direct (measured) LDL and calculated LDL are not interchangeable tests.Performed By: #### LIPR, GLYHGB ####[facility] Ykxpqpnmiamg5619 [place], [place] [phone] Director: Placido Pierce MD#### CP ####[facility] Hre2921 [place] [address] Lab Director: Emily George MD#### INSU ####[facility] [place] [address] Lab Director: Placido Pierce, [facility] Gmf4869 [place] [address] Lab Director: Emily George MD Cholesterol in VLDL [Mass/Vol]68 mg/dLHigh1-30[facility] Medical CenterComment on above:Performed By: #### LIPR, GLYHGB ####[facility] Xvuelbigdkkl4772 [place] [address] Lab Director: Placido Pierce MD#### CP ####[facility] Odm8349 [place] [phone] Director: Emily George MD#### INSU ####[facility] [place] [address] Lab Director: Placido Pierce, [facility] Njy7182 [place] [address] Lab Director: Oliverio Mirzasteromatthew.total/Cholesterol in HDL [Mass ratio]5.1 {ratio} High<5.0[facility] Medical CenterComment on above:Performed By: #### LIPR, GLYHGB ####[facility] Xsiqwojurkum3638 [place] [address] Lab Director: Placido Pierce MD#### CP ####[facility] Bst9197 [place] [address] Lab Director: Emily George MD#### INSU ####[facility] [place] [address] Lab Director: Placido Pierce, [facility] Ozx9314 [place] [address] Lab Director: Emily George MDTriglyceride [Mass/Vol]341 mg/dL High<150[facility] Heights Medical CenterComment on above:Result Comment: Triglyceride Guidelines: <150 Desirable 150-199 Borderline 200-499 High >499 Very high Based on AHA Guidelines for fasting triglyceride, July 2012.Performed By: #### LIPR, GLYHGB ####[facility] [address]hf[address]tid[address] [place], [place] [phone] Lab Director: Placido Pierce MD#### CP ####[facility] Avg1968 [place] [address] Lab Director: Emily George MD#### INSU ####[facility] [place] [address] Lab Director: Placido Pierce [facility] Yzn9091 [place] [address] Lab Director: Emily George MD No Panel Informationon 93-19-6166Zxl [facility] Foot - right WO and W [...] atrophic change likely related to chronic neuropathy. Robin Jones MD - 04/12/2025 EXAM: MRI FOOT RIGHT [...] again superimposed infection be difficult to include. Bon [facility] Foot - right WO and W contrast IVOrdered By: Robin Mcarthur on 78-75-4512Jta [facility] Work Phone: MRI FOOT RIGHT W WO CONTRASTon [id number]: MRI FOOT RIGHT W WO CONTRAST COMPARISON: [...] by: Robin Mcarthur MD 04/12/25 Final result [facility] FOOT RIGHT W WO CONTRASTEXAM: MRI [...] Signed by: Robin Mcarthur MD 04/12/25 Final resultNormOhioHealth O'Bleness HospitalRadiology Study observation (narrative) [facility] FOOT RIGHT W WO CONTRASTOrdered By: Radiologist Radiology on 85-91-5000JZJTSt. Louis VA Medical Center Work Phone: bUN & Creatinineon 62-37-7163Xpbjgjkwmx [Mass/Vol]1.3 mg/dLHigh0.5 - 0.9 mg/dLBon [facility] HospitalSariah Hahn Baxz07Law- PINF [facility] Community HospitalComment on above: These results are not [...] tubular secretion. Interpretation and review of laboratory resultsAbnormalCarilion Tazewell Community Hospital Urea nitrogen [Mass/Vol]15 mg/dL6 - 20 mg/dLBon [facility] Medical CenterBUN + Creatinineon 40-90-3809Aplemuzqrm [Mass/Vol]1.3 mg/dLHigh 0.5-0.9[facility] Center South Campusment on above:Performed By: #### BUNCRT ####[facility] Zpw1446 [place] [phone] Director: Emily George MDGFR/1.73 sq M.predicted among non-blacks MDRD (S/P/Bld) [Vol rate/Area]52 mL/min/{1.73_m2}Low>60[facility] Medical CenterComment on above:Result Comment: These results are not intended for use in patients <18 years of age. eGFR results are calculated without a race factor using the 202 CKD-EPI equation. Careful clinical correlation is recommended, particularly when comparing to results calculated using previous equations. The CKD-EPI equation is less accurate in patients with extremes of muscle mass, extra-renal metabolism of creatine, excessive creatine ingestion, or following therapy that affects renal tubular secretion.Performed By: #### BUNCRT ####[place] [phone] lab Director: Emiyl George MDUrea nitrogen [Mass/Vol]15 mg/dLNoal6-20[facility] Medical CenterComment on above:Performed By: #### BUNCRT ####[facility] X[address] [place] [address] lab Director: ELISABET MirzaT BUN + CREATININEon 70-02-3304Mvtskjehjr [Mass/Vol]1.3 mg/dLHigh0.5 - 0.9 mg/dLINTERMOUNTAIN HEALTHCARE HealthcareInterpretation and review of laboratory resultsAbnoMount Nittany Medical CenterMHPT IGTA61Fwl- PINFSt. Louis VA Medical CenterComment on above: These results are [...] secretion. Urea nitrogen [Mass/Vol]15 mg/dL6 - 20 mg/dLSt. Louis VA Medical CenterOriginal Ordering Provider: ROBBIN DENTONFormerly [facility] Foot - right WO and W contrast Chay [id number] Study observation (narrative)Sid [facility] HospitalXR Foot - right 2 Viewson [id number] Result: XRAY RIGHT FOOT: AP/OBL- No fx. Lis franc diastasis concern with deformity. DP 2 mild cortical disruption 1-2mm possible. No bone density changesNovant Health Mint Hill Medical Center Cult,Woundon 76-13-6810Evel,WoundSpecimen Description .TOE Direct Exam NO NEUTROPHILS SEEN [...] <=1 SUSCEPTIBLE Trimethoprim/Sulfa <=10 SUSCEPTIBLE Vancomycin 1 SUSCEPTIBLESusceptibleMetrohealth Cleveland Heights Medical CenterComment on above: Performed By: #### MORPHX, CRP, BMP, CBC, SED #### [facility] [address] [place], [place] [phone] Cosmetologist: ARPAN Mirza Foot - right 2 Viewson [id number] Study observation (narrative)[facility] Natri. Peptideon 04-04-2025 Natriuretic peptide B (Bld) [Mass/Vol]262 pg/mLNormal<300[facility] Comment on above:Result Comment: An age-independent cutoff point of 300 pg/ml has a 98% negative predictive value excluding acute heart failure.Performed By: #### BNP, SED, CRP ####[facility] Ywk0569 [place], [place] [phone] Lab Director: Jessica Mirza Natriuretic Peptideon 65-38-7426Dqfrjbhsdgf peptide B (Bld) [Mass/Vol]262 pg/mLNINF - 300 pg/mLBon [facility] HospitalComment on above:An age-independent cutoff point of 300 pg/ml has a 98% negative predictive value excluding acute heart failure. C-Reactive Proteinon [id number] High sensitivity method [Mass/Vol]46.7 mg/L High0.0 - 5.0 mg/LBon [facility] HospitalInterpretation and review of laboratory resultsAbnormalCarilion Tazewell Community HospitalCRP [Mass/Vol]46.7 mg/LHigh 0.0-5.0[facility] Medical CenterComment on above:Performed By: #### BNP, SED, CRP ####[facility] Bgo[address] [facility] HospitalwilianSPOT[place], [place] [phone] Director: Emily George [facility] with Auto Differentialon 04-04-2025 Basophils (Bld) [#/Vol]0.02 10*3/uLBon Secours [facility] State Harding HospitalBasophils/100 WBC (Bld)0 %0 - 2 %[facility] HospitalEosinophils (Bld) [#/Vol]0.07 10*3/uLBon Secours [facility] Hard[facility] HospitalEosinophils/100 WBC (Bld)1 %0 - 5 %[facility] Erythrocyte distribution width (RBC) [Ratio]18.4 %High12.1 - 15.2 %[facility] Community HospitalHematocrit (Bld) [Volume fraction]30 %Low36.0 - 46.0 %[facility] Community HospitalHemoglobin (Bld) [Mass/Vol]9.6 g/dLLow12.0 - 16.0 g/dLBon SecMercy Health St. Vincent Medical CenterImmature granulocytes (Bld) [#/Vol]0.13 10*3/uLBon SecMercy Health St. Vincent Medical CenterImmature granulocytes/100 WBC (Bld)2 %0 - 5 %[facility] Interpretation and review of laboratory resultsAbnormalCarilion Tazewell Community Hospital Lymphocytes/100 WBC (Bld)23 %15 - 40 %Bon SecMercy Health St. Vincent Medical CenterLymphocytes/100 WBC (Bld)1.39 %Bon SecTriHealthH (RBC) [Entitic mass]27 pg26.0 - 34.0 pgBon SecTriHealthHC (RBC) [Mass/Vol]32 g/dL31.0 - 37.0 g/dLBon Secours Shelby Memorial HospitalV (RBC) [Entitic vol]84.3 fL80.0 - 100.0 fLCarilion Tazewell Community HospitalMonocytes/100 WBC (Bld)6 %4 - 8 %[facility] Monocytes/100 WBC (Bld)0.37 %[facility] Community HospitalNeutrophils/100 WBC (Bld)68 %47 - 75 %[facility] Community HospitalPlatelet mean volume (Bld) [Entitic vol]11.7 fL6.0 - 12.0 fLCarilion Tazewell Community HospitalPlatelets (Bld) [#/Vol]186 10*3/uLBon [facility] HospitalRBC (Bld) [#/Vol]3.56 10*6/uLLow4.00 - 5.20 m/uLCarilion Tazewell Community HospitalSegmented neutrophils/100 WBC (Bld)4.09 %[facility] Community HospitalWBC other (Bld) [#/Vol]6.1Bon [facility] Medical CenterCBC with Diffon 90-59-0570Kol. Basophil0.02 k/uLNormal0.00-0.20[facility] Comment on above:Performed By: #### CDP ####[facility] Okt6571 [place] [address] Lab Director: Emily George MD Abs.Imm.Granulocyte0.13 k/uLNormal0.00-0.30[facility] Medical CenterComment on above:Performed By: #### CDP ####[facility] Xga5422 [place] [address] Lab Director: Emily George MDAbs.Neutrophil (Seg)4.09 k/uLNormal2.5-7.0[facility] Medical CenterComment on above:Performed By: #### CDP ####[facility] Dzm4379 [place] [address] Lab Director: Emily George MDBasophils/100 WBC (Bld)0 %Normal 0-2[facility] Health River RegionComment on above:Performed By: #### CDP ####[facility] Shj[address] [place] [address] Lab Director: Emily George MDEosinophils (Bld) [#/Vol]0.07 10*3/uLNormal0.00-0.40 [facility] CenterComment on above:Performed By: #### CDP ####[facility] Poe[address] [facility] [place] [address] Lab Director: Emily George MDEosinophils/100 WBC (Bld)1 %Normal0-[address] [place] [address] Comment on above:Performed By: #### CDP ####[facility] Mvb6291 [place] [address] Lab Director: Emily George MD Erythrocyte distribution width (RBC) [Ratio]18.4 %High12.1-15.2MWestern Reserve HospitalComment on above:Performed By: #### CDP ####[facility] Cns6242 [place] [address] Lab Director: Emily George MDHematocrit (Bld) [Volume fraction]30.0 %Low36.0-46.0[facility] Medical CenterComment on above:Performed By: #### CDP ####[facility] Eas[address] [place] [address] Lab Director: Emily George MDHemoglobin (Bld) [Mass/Vol]9.6 g/dLLow12.0-16.0[facility] Comment on above:Performed By: #### CDP ####[facility] Aws2471 [place] [address] Lab Director: Emily George MD Immature granulocytes/100 WBC (Bld)2 %Normal0-5[facility] Medical CenterComment on above:Performed By: #### CDP ####[facility] Dbx0447 [place] [address] Lab Director: Leelee Mirzamphocytminh (Bld) [#/Vol]1.39 10*3/uLNormal1.00-4.80[facility] Medical CenterComment on above: Performed By: #### CDP ####[facility] Ens2965 [place] [address] Lab Director: Shanelle Mirzahocytes/100 WBC (Bld)23 %Opnxkt33-35VtowoMetrohealth Cleveland Heights Medical CenterComment on above:Performed By: #### CDP ####[facility] Ucb8100 [place] [address] Lab Director: ELISABET MirzaCH (RBC) [Entitic mass]27.0 pg Wdcpdm62.0-34.0[facility] Medical CenterComment on above:Performed By: #### CDP ####[facility] Ynw8891 [place] [phone] Director: ELISABET MirzaCHC (RBC) [Mass/Vol]32.0 g/uBSmwicd82.0-37.0 [facility] CenterComment on above:Performed By: #### CDP ####[facility] Pis[address]63 [place] 7995690 Lab Director: ELISABET MirzaCV (RBC) [Entitic vol]84.3 mETvrigk02.0-100.0[facility] Medical CenterComment on above:Performed By: #### CDP ####[facility] Sga4256 [place] [address] Lab Director: ELISABET Mirzaonocytes (Bld) [#/Vol]0.37 10*3/uLNormal0.00-1.00[facility] Medical CenterComment on above:Performed By: #### CDP ####[facility] Vbp88[address] [place] [address] Lab Director: ELISABET Mirzaonocytes/100 WBC (Bld)6 %Normal4-8[facility] Medical CenterComment on above:Performed By: #### CDP ####[facility] Zyb[address] [facility] [place] [address] Lab Director: Vincent Mirzautrophil (Seg) 68 %Noxyts04-86HiauyMetrohealth Cleveland Heights Medical CenterComment on above:Performed By: #### CDP ####[facility] Iax[address] [facility] [place] [phone] Director: Haja Mirza mean volume (Bld) [Entitic vol]11.7 fLNormal6.0-12.0[facility] Medical CenterComment on above:Performed By: #### CDP ####[facility] Yni7446 [place] [phone] Director: Terrence Mirza (Bld) [#/Vol]186 10*3/uLNormal 140-450[facility] Medical CenterComment on above:Performed By: #### CDP ####[facility] Apr[address]7 [place] [phone] Director: LASHAY MirzaBC (Bld) [#/Vol]3.56 10*6/uLLow4.00-5.20[facility] Medical CenterComment on above:Performed By: #### CDP ####[facility] Fqx[address] [facility] [place] [address] Lab Director: LLOYD Mirza (Bld) [#/Vol]6.1 10*3/uLNormal3.5-11.0[facility] on above:Performed By: #### CDP ####[facility] Kqt[address] [place] [address] lab Director: Emily George MD No Panel Informationon 04-04-2025 No acute osseous injury. Soft tissue swelling of the left great toe on the right second toe without radiographic evidence of osteomyelitis. Postsurgical changes partially imaged on the left. [facility] CONSOLIDATEDEXAM: XR TOE LEFT (MIN 2 VIEWS), [...] blastic bony lesions. There is normal mineralization. [facility] Daksha Bourne MD - 04/04/2025 EXAM: XR TOE LEFT [...] changes partially imaged on the left. [facility] HospitalNo Panel InformationOrdered By: Daksha Hannah on 05-16-2846Ypx [facility] Work Phone: sedimentation Rateon [id number] Photometric method (Bld) [Velocity]32Mary Washington HealthcareInterpretation and review of laboratory resultsAbnormalCarilion Franklin Memorial Hospital Sedimentation Rate32 mm/HrHighland-Clarksburg Hospital081 Henderson StreetComment on above: Performed By: #### BNP, SED, CRP ####[facility] Dtp0660 [place] [address] lab Director: LIONEL MirzaR TOE LEFT (MIN 2 VIEWS)on [id number] TOE LEFT (MIN 2 VIEWS)EXAM: XR TOE [...] Signed by: Daksha Hannah MD 04/04/25 Final resultNoOhioHealth Pickerington Methodist HospitalXR TOE RIGHT (MIN 2 VIEWS)on 04-04-2025 [...] Signed by: Daksha Hannah MD 04/04/25 Final resultNormalMetrohealth Cleveland Heights Medical CenterXR Toes - left 2 Viewson 04-04-2025 Radiology Study observation (narrative)Sid [facility] HospitalXR Toes - right 2 Viewson [id number] Study observation (narrative)Sid [facility] Hospitallynnette [facility] BRIAN DIGITAL SCREEN BILATERALon 12-25-4068BPJ BRIAN DIGITAL SCREEN BILATERALHISTORY: Screening. TECHNIQUE: Bilateral [...] be mailed to the patient. Performing Facility: [facility] [address] [id number] Interpreted by: Micky Lauren Jr., MD Signed by: Micky Lauren Jr., MD 02/28/25 Final resultNormalMetrohealth Cleveland Heights Medical CenterComp Metabolic Profon 13-66-2744Noikajl [Mass/Vol]3.8 g/dLNormal3.5-5.2MercLos Medanos Community HospitalComment on above:Performed By: #### LIPR, LDLDIR, GLYHGB #### [facility] [employer] [address] [place] [id number] Cosmetologist: Placido Pierce MD #### CP #### [facility] [address] [place] [address] Cosmetologist: Manish Mirza [id number] /[id number] Fletcher StreetComment on above:Performed By: #### LIPR, LDLDIR, GLYHGB #### [facility] [employer] [address] [place] [address] [id number] Cosmetologist: Placido Pierce MD #### CP #### [facility] [address] [place], [place] [phone] Cosmetologist: RAMA Mirza [Catalytic activity/Vol]11 U/LNormal5-33[facility] on above:Performed By: #### LIPR, LDLDIR, GLYHGB #### [address] [id number] Cosmetologist: Placido Pierce MD #### CP #### [facility] [address] [place], [place] [id number] Cosmetologist: Myles Mirza gap [Moles/Vol]12 mmol/LNormal9-17Metrohealth Cleveland Heights Medical CenterComment on above:Performed By: #### LIPR, LDLDIR, GLYHGB #### [address] [id number] Cosmetologist: Placido Pierce MD #### CP #### [facility] [address] [place], [place] [phone] Cosmetologist: YADY Mirza [Catalytic activity/Vol]14 U/LNormal<32[facility] Heights Medical CenterComdeckerville community hospital on above:Performed By: #### LIPR, LDLDIR, GLYHGB #### [address] [id number] Cosmetologist: Placido Pierce MD #### CP #### [facility] [address] [place], [place] [phone] Cosmetologist: Emily George MDBilirubin [Mass/Vol]0.4 mg/dLNormal0.3-1.2MWestern Reserve HospitalComdeckerville community hospital on above:Performed By: #### LIPR, LDLDIR, GLYHGB #### [address] [id number] Cosmetologist: Placido Pierce MD #### CP #### [facility] [address] [place], [place] [phone] Cosmetologist: Emily George MDBUN/CRE [id number] [facility] Comment on above:Performed By: #### LIPR, LDLDIR, GLYHGB #### [address] [address] Cosmetologist: Placido Pierce MD #### CP #### [facility] [address] [place], [place] [phone] Cosmetologist: SHER Mirzaalcium [Mass/Vol]9.3 mg/dLNormal8.6-10.4Metrohealth [facility] Heights Medical CenterComment on above:Performed By: #### LIPR, LDLDIR, GLYHGB #### [address] [phone] Cosmetologist: Placido Pierce MD #### CP #### [facility] [address] [place], [place] [phone] Cosmetologist: SHER Mirzahloride [Moles/Vol]102 mmol/ULtmpmd25-149KzewyMetrohealth Cleveland Heights Medical CenterComment on above:Performed By: #### LIPR, LDLDIR, GLYHGB #### [address] [address] Cosmetologist: Placido Pierce MD #### CP #### [facility] [address] [place], [place] [phone] Cosmetologist: SHER MirzaO2 [Moles/Vol]25 mmol/PRrpvwq59-01VpqixMetrohealth Cleveland Heights Medical CenterComment on above:Performed By: #### LIPR, LDLDIR, GLYHGB #### [address] [address] Cosmetologist: Placido Pierce MD #### CP #### [facility] [address] [place] [address] Cosmetologist: SHER Mirzareatinine [Mass/Vol]1.1 mg/dLHigh0.5-0.9Met[facility] Heights Medical CenterComment on above:Performed By: #### LIPR, LDLDIR, GLYHGB #### [address] [phone] Cosmetologist: Placido Pierce MD #### CP #### [facility] [address] [place] [address] Cosmetologist: Emily George MDGFR/1.73 sq M.predicted among non-blacks MDRD (S/P/Bld) [Vol rate/Area]63 mL/min/{1.73_m2}Normal>60[facility] Comment on above:Result Comment: These results are [...] secretion.Performed By: #### LIPR, LDLDIR, GLYHGB #### [address] [id number] Cosmetologist: Placido Pierce MD #### CP #### [facility] [address] [place] [address] Cosmetologist: Emily George MDGlucose [Mass/Vol]125 mg/kFYhoz88-42RhwtrWestern Reserve HospitalComment on above:Performed By: #### LIPR, LDLDIR, GLYHGB #### [facility] [address] [place], [place] 1444508 Cosmetologist: Placido Pierce MD #### CP #### [facility] [address] [place], [place] [id number] Cosmetologist: ANNMARIE Mirzaotassium [Moles/Vol]4.2 mmol/LNormal3.7-5.3MWestern Reserve HospitalComment on above:Performed By: #### LIPR, LDLDIR, GLYHGB #### [address] [phone] Cosmetologist: Placido Pierce MD #### CP #### [facility] [address] [place], [place] [phone] Cosmetologist: ANNMARIE Mirzarotein [Mass/Vol]7.2 g/dLNormal6.4-8.3MWestern Reserve HospitalComment on above:Performed By: #### LIPR, LDLDIR, GLYHGB #### [address] [phone] Cosmetologist: Placido Pierce MD #### CP #### [facility] [address] [place], [place] [phone] Cosmetologist: MARIKA Mirzaodium [Moles/Vol]139 mmol/XEtpefz483-144LfjdjMetrohealth Cleveland Heights Medical CenterComment on above:Performed By: #### LIPR, LDLDIR, GLYHGB #### [address] [address] Cosmetologist: Placido Pierce MD #### CP #### [facility] [address] [place], [place] [phone] Cosmetologist: Emily George MDUrea nitrogen [Mass/Vol]21 mg/dLHigh6-20Met[facility] Heights Medical CenterComment on above:Performed By: #### LIPR, LDLDIR, GLYHGB #### [address] [address] Cosmetologist: Placido Pierce MD #### CP #### [facility] [address] [place] [address] Cosmetologist: Emily George, [facility] STROUDompcommunity memorial hospitalensive Metabolic Panelon 45-67-8719Xecngvb [Mass/Vol]3.8 g/dL3.5 - 5.2 g/dLBon [facility] HospitalALP [Catalytic activity/Vol]115 U/LHigh35 - 104 U/LBon [facility] HospitalALT [Catalytic activity/Vol]11 U/L5 - 33 U/LBon [facility] HospitalAnion gap [Moles/Vol]12 mmol/L9 - 17 mmol/LBon [facility] HospitalAST [Catalytic activity/Vol]14 U/L NINF - 32 U/LBon [facility] HospitalBilirubin [Mass/Vol]0.4 mg/dL0.3 - 1.2 mg/dLBon [facility] HospitalCalcium [Mass/Vol]9.3 mg/dL8.6 - 10.4 mg/dLBon [facility] For WomenZillionTV [facility]ome[facility] Memorial HospitalChloride [Moles/Vol]102 mmol/L98 - 107 mmol/LBon [facility] HospitalCO2 [Moles/Vol]25 mmol/L20 - 31 mmol/LBon [facility] Creatinine [Mass/Vol]1.1 mg/dLHigh0.5 - 0.9 mg/dLBon [facility] For WomenZillionTV [place] [facility]ome[facility] Memorial HospitalEst, Glom Filt Rate63- PINFBon [facility] HospitalComment on above: These results are not [...] that affects renal tubular secretion. Glucose [Mass/Vol]125 mg/vJQmrx69 - 99 mg/dLBon [facility] Hospital For WomenZing Interpretation and review of laboratory resultsAbnormalBon [facility] Potassium [Moles/Vol]4.2 mmol/L3.7 - 5.3 mmol/LBon [facility] Thinque SystemsProtein [Mass/Vol]7.2 g/dL6.4 - 8.3 g/dLBon [facility] HospitalSodium [Moles/Vol]139 mmol/L135 - 144 mmol/LBon [facility] HospitalUrea nitrogen [Mass/Vol]21 mg/dL High6 - 20 mg/dLBon [facility] HospitalUrea nitrogen/Creatinine [Mass ratio]19 mg/mg9 - 20Bon [facility] Medical CenterHemoglobin A1Con 60-41-6142Qxpmjsy glucose Estimated from glycated hemoglobin (Bld) [Mass/Vol]103 mg/dLBon [facility] on above:The ADA and AACC recommend providing the estimated average glucose result to permit better patient understanding of their HBA1c result. HbA1c (Bld) [Mass fraction]5.2 %4.0 - 6.0 %Bon [facility] Medical CenterGlucose [Mass/Vol]103 mg/dLNormalWVUMedicine Harrison Community Hospital on above:Result Comment: The ADA and AACC recommend providing the estimated average glucose result to permit better patient understanding of their HBA1c result.Performed By: #### LIPR, LDLDIR, GLYHGB #### [address] [id number] Cosmetologist: Placido Pierce MD #### CP #### [facility] [address] [place] [address] Cosmetologist: Emily George MDHbA1c (Bld) [Mass fraction]5.2 %Normal4.0-6.0[facility] on above:Performed By: #### LIPR, LDLDIR, GLYHGB #### [address] [place], [place] 1791508 Cosmetologist: Placido Pierce MD #### CP #### [facility] [address] [place] [address] Cosmetologist: Emily George MDLDL Chol, Directon 90-43-4908GZA Chol, Stcukw40 mg/dLNormal<100[facility] on above:Performed By: #### LIPR, LDLDIR, GLYHGB ####[facility] [address] [place], [place] [phone] Director: Placido Pierce MD#### CP ####[facility] [address] [place] [address] lab Director: Emily George MD LDL Cholesterol, Directon 18-57-9077Unudytzjlok in LDL [Mass/Vol]94 mg/dLNINF - 100 mg/dLBon [facility] Tonsil HospitalVivotechLipid Panelon 30-24-5950Ozyeokkqlgg [Mass/Vol]179 mg/dL0 - 199 mg/dLBon [facility] HospitalRedditClinch Valley Medical Center Comment on above: Cholesterol Guidelines: <200 Desirable 200-240 Borderline >240 Undesirable Cholesterol in HDL [Mass/Vol]31 mg/dLLow40 - PINF mg/dLBon [facility] [employer] Comment on above: HDL Guidelines: <40 Undesirable 40-59 Borderline >59 Desirable Cholesterol in LDL [Mass/Vol]Can not be calculated0 - 100 mg/dLBon [facility] For WomenZillionTV [place] [facility] Memorial HospitalComment on above: LDL Guidelines: <100 Desirable 100-129 Near to/above Desirable 130-159 Borderline >159 Undesirable Direct (measured) LDL and calculated LDL are not interchangeable tests. Cholesterol in VLDL [Mass/Vol]Can not be calculated1 - 30 mg/dLBon [facility] HospitalVivotechCholesterol.total/Cholesterol in HDL [Mass ratio]5.8 {ratio}[facility]umberland HospitalReddit MarketbrightInterpretation and review of laboratory resultsAbnormalCumberland HospitalReddit MarketbrightTriglyceride [Mass/Vol]407 mg/dLHighNINF - 150 mg/dLBon [facility] SpinnakrClinch Valley Medical CenterComment on above: Triglyceride Guidelines: <150 Desirable 150-199 Borderline 200-499 High >499 Very high Based on AHA Guidelines for fasting triglyceride, July 2012. SEAT 4aLipid Profileon 60-84-9807Wyurvxvvdlo [Mass/Vol]179 mg/dLNormal0-199Metrohealth Cleveland Heights Medical CenterComment on above:Result Comment: Cholesterol Guidelines: <200 Desirable 200-240 Borderline >240 UndesirablePerformed By: #### LIPR, LDLDIR, GLYHGB #### [employer] [address] [place] [address] Cosmetologist: Placido Pierce MD #### CP #### [facility] [address] [place] [address] Cosmetologist: SHER Mirzaholesterol in HDL [Mass/Vol]31 mg/dLLow>40[facility] on above:Result Comment: HDL Guidelines: <40 Undesirable 40-59 Borderline >59 DesirablePerformed By: #### LIPR, LDLDIR, GLYHGB #### [address] [address] Cosmetologist: Placido Pierce MD #### CP #### [facility] [address] [place], [place] [phone] Cosmetologist: SHER Mirzaholesterol,LDLCan not be calculatedNormal0-100 [facility] on above:Result Comment: LDL Guidelines: <100 Desirable 100-129 Near to/above Desirable 130-159 Borderline >159 Undesirable Direct (measured) LDL and calculated LDL are not interchangeable tests.Performed By: #### LIPR, LDLDIR, GLYHGB #### [address] [place] [address] Cosmetologist: Placido Pierce MD #### CP #### [facility] [address] [place] [address] Cosmetologist: SHER Mirzaholesterol,VLDLCan not be calculatedNormal1-30 [facility] on above:Performed By: #### LIPR, LDLDIR, GLYHGB #### [address] [address] Cosmetologist: Placido Pierce MD #### CP #### [facility] [address] [place], [place] [phone] Cosmetologist: SHER Mirzaholesterol.total/Cholesterol in HDL [Mass ratio] 5.8 {ratio}NormalMetrohealth Cleveland Heights Medical CenterComment on above:Performed By: #### LIPR, LDLDIR, GLYHGB #### [employer] [facility] [address] [place] [address] Cosmetologist: Placido Pierce MD #### CP #### [facility] [address] [place], [place] [phone] Cosmetologist: Emily George MDTriglyceride [Mass/Vol]407 mg/dLHigh<150Met[facility]health [facility] Heights Medical CenterComment on above:Result Comment: Triglyceride Guidelines: <150 Desirable 150-199 Borderline 200-499 High >499 Very high Based on AHA Guidelines for fasting triglyceride, July 2012.Performed By: #### LIPR, LDLDIR, GLYHGB #### [facility] [address] [place] [address] Cosmetologist: Placido Pierce MD #### CP #### [facility] [address] [place] [address] Cosmetologist: Emily George MDUS THYROIDon [id number] THYROIDEXAM: US THYROID HISTORY: Thyroid nodule COMPARISON: [...] by: Micky Lauren Jr., MD 09/07/24 Final resultNormalMercy Andre Pace Thyroid glandon 09-07-2024 TI-RADS 5, highly suspicious subcentimeter nodule in the right lobe remains stable. (Follow if greater than or equal to 0.5 cm annually until 5 years according to ACR TI-RADS recommendations). Continued follow-up annually is recommended through 2026. [facility] CONSOLIDATEDEXAM: US THYROID HISTORY: Thyroid nodule COMPARISON: [...] 1.7 x 1.3 cm. Isthmus: 0.2 cm [facility] OMARPremier Health Miami Valley Hospital SouthMicky espinosa Jr., MD - 09/07/2024 EXAM: US THYROID [...] Continued follow-up annually is recommended through 2026. SEAT 4a Thyroid glandOrdered By: Micky Lauren on 09-07-2024 SEAT 4a Work Phone: us Thyroid glandon [phone] Study observation (narrative)SEAT 4aMagnesiumon 50-03-9091Fakruyslp [Mass/Vol]2.2 mg/dL1.6 - 2.6 mg/dLBON SECSocialExpressNo Panel Informationon 62-26-5981BON SECThinkHR [facility] - DUBLINProtein / creatinine ratio, urineon 26-57-4834Rcvptgflqt (U) [Mass/Vol]132.0 mg/dL28.0 - 217.0 mg/dLBON [facility] MEDICAL CENTERThinkHR HEALTHProtein (U) [Mass/Vol]9 mg/dLBON B[facility] BAYWOOD MEDICAL CENTERThinkHR [facility] - DUBLINComment on above:No normal range established.Urine Total Protein Creatinine Ratio0.07BON [facility] IntivixDAYTON VA MEDICAL CENTERRenal Function Panelon 05-10-2024 Albumin [Mass/Vol]4.2 g/dL3.5 - 5.2 g/dLBON [facility] CohumanAnion gap [Moles/Vol]15 mmol/L9 - 17 mmol/LBON [facility]CCAR[facility] [employer] [facility] - DUBLINCalcium [Mass/Vol]9.2 mg/dL8.6 - 10.4 mg/dLBON [facility] [employer] HEALTHChloride [Moles/Vol]101 mmol/L98 - 107 mmol/LBON [facility] [employer] HEALTHCO2 [Moles/Vol]25 mmol/L20 - 31 mmol/LBON [facility] IntivixDAYTON VA MEDICAL CENTERCreatinine [Mass/Vol]1.3 mg/dLHigh0.5 - 0.9 mg/dLBON B[facility] BAYWOOD MEDICAL CENTERSocialExpressEst, Glom Filt Myov49Xeh- PINFBON [facility]AN[facility] BAYWOOD MEDICAL CENTERThinkHR [facility] - DUBLINComment on above: These results are not intended [...] that affects renal tubular secretion. Glucose [Mass/Vol]141 mg/bHHbmg89 - 99 mg/dLBON [place] Interpretation and review of laboratory resultsAbnormalBON [facility] B[facility] MEDICAL CENTERSocialExpress Phosphate [Mass/Vol]3.8 mg/dL2.6 - 4.5 mg/dLBON [facility] CENTERSocialExpressPotassium [Moles/Vol]4.0 mmol/L3.7 - 5.3 mmol/LBON [facility]OD MEDICAL CENTERThinkHR HEALTHSodium [Moles/Vol] 141 mmol/L135 - 144 mmol/LBON [facility] HEALTHUrea nitrogen [Mass/Vol]19 mg/dL6 - 20 mg/dLBON [facility] HOSPITALY HEALTHUrea nitrogen/Creatinine [Mass ratio]15 mg/mg9 - 20BON [facility] HEALTHUrinalysison 23-11-9874Exknrywkn Ql (U) NegativeNEGATIVEBON [facility] HEALTHClarity (U)ClearClearBON [facility] HEALTHColor (U)YellowYellowBON [facility] CENTERCommentBON [facility] HEALTHGlucose Test strip (U) [Mass/Vol]NegativeNEGATIVE mg/dLBON [facility] MEDICAL CENTERHemoglobin Auto test strip Ql (U)NegativeNEGATIVEBON [facility] HEALTH Interpretation and review of laboratory resultsAbnormalBON [facility] Ketones (U) [Mass/Vol]NegativeNEGATIVE mg/dLBON [facility] MEDICAL CENTERLeukocyte esterase Test strip Ql (U)NegativeNEGATIVEBON [facility] HEALTHNitrite Ql (U) NegativeNEGATIVEBON [facility] HEALTHpH (U)5.0 [pH]5.0 - 8.0BON [facility] HEALTHProtein (U) [Mass/Vol]TRACEAbnormalNEGATIVE mg/dLBON [facility] HEALTH Specific gravity (U) [Rel density]1.0201.005 - 1.030BON [facility] Urobilinogen Qn (U)Normal0.0 - 1.0 EU/dLBON SECAGNESIAN HEALTHCARELon [id number]: [id number] Received: 02/16/24 Status: ARLEN So Num: [id number] Spec Type: Surgical Subm Dr: Frances Harris DPM, MS Tissues: A Soft Tissue/Surgical Margin-Other than Tumor,Mass,Lip or Becka (LT MID FOOT CH Procedures: HE/2, Gross/Micro L4 Age/ Patient Sex Location Account Attending Physician Celina Gaspar 43/F LABELL [id number] Frances Harris DPM, MS SPEC NUM: [id number] RECD: 02/16/24 STATUS: ARLEN SO NUM: [id number] MAYTE: 02/15/24-[address]: Frances Harris,INDER, MS ENTERED: 02/16/[address] [facility] [address]: Ursula,Darwin SPEC TYPE: Surgical DEPT: DEANA [...] reveal firm, yellow spongy bone matrix. Manager Environmental sections are submitted following decalcification in A1?A2. Clinical history: varus deformity left ankle, charcot join left ankle and foot. CPT Codes 95927 Specimen: [id number] Received: 02/16/24 Status: ARLEN So Num: [id number] Spec Type: Surgical Subm Dr: Frances Harris DPM, MS Tissues: A Soft Tissue/Surgical Margin-Other than Tumor,Mass,Lip or Becka (LT MID FOOT CH Procedures: HE/2, Gross/Micro L4 Patient: Celina Gaspar [id number] (Continued) Signed (signature on file) Juan José Yu MD 02/17/[address] [place] [address] Physician GroupLipid Panelon 06-15-2023 Cholesterol [Mass/Vol]174 mg/dLNINF - 200 mg/dLBON Buzz LanesComment on above: Cholesterol Guidelines: <200 Desirable 200-240 Borderline >240 Undesirable Cholesterol in HDL [Mass/Vol]30 mg/dLLow40 - PINF mg/dLBON [place] Comment on above: HDL Guidelines: <40 Undesirable 40-59 Borderline >59 Desirable Cholesterol in LDL [Mass/Vol]77 mg/dL0 - 130 mg/dLBON [place] Comment on above: LDL Guidelines: <100 Desirable 100-129 Near to/above Desirable 130-159 Borderline >159 Undesirable Direct (measured) LDL and calculated LDL are not interchangeable tests. Cholesterol.total/Cholesterol in HDL [Mass ratio]5.8 {ratio}HighNINF - 5BON Buzz LanesInterpretation and review of laboratory resultsAbnormalBON Buzz LanesTriglyceride [Mass/Vol]334 mg/dLHighNINF - 150 mg/dLBON Buzz LanesComment on above: Triglyceride Guidelines: <150 Desirable 150-199 Borderline 200-499 High >499 Very high Based on AHA Guidelines for fasting triglyceride, July 2012. BON Buzz LanesBUN & Creatinineon 81-50-4677Tlzmpyhump [Mass/Vol]1.08 mg/dLHigh0.50 - 0.90 mg/dLBON [facility] HOSPITALGFR/1.73 sq M.predicted MDRD (S/P/Bld) [Vol rate/Area]- PINFBON [facility] SHELBY HOSPITALComment on above: These results are not [...] Urea nitrogen [Mass/Vol]21 mg/dLHigh6 - 20 mg/dLBON [facility] HOSPITALCBC with Auto Differentialon [id number] Eos #0.10BON [facility] Absolute Lymph #1.70BON [facility] HOSPITALAbsolute Attala #0.50BON [facility] HOSPITALBasophils (Bld) [#/Vol]0.00 10*3/uLBON [facility] MEDICAL CENTERBasophils/100 WBC (Bld)1 %0 - 2 %BON [facility] HOSPITALDifferential TypeYESBON [facility]LBY HOSPITALEosinophils/100 WBC (Bld)1 %0 - 5 %BON [facility]LBY HOSPITALHematocrit (Bld) [Volume fraction]36.2 %36 - 46 %BON [facility] HOSPITALHemoglobin (Bld) [Mass/Vol]12.2 g/dL12.0 - 16.0 g/dLBON [facility] HOSPITALInterpretation and review of laboratory resultsAbnormalBON [facility] MEDICAL CENTERLymphocytes/100 WBC (Bld)23 %15 - 40 %BON [facility]OSPITALH (RBC) [Entitic mass]28.7 pg26 - 34 pgBON SECOHIO VALLEY HOSPITALHC (RBC) [Mass/Vol]33.7 g/dL31 - 37 g/dLBON FLOWER HOSPITALV (RBC) [Entitic vol]85.3 fL80 - 100 fLBON [facility] Monocytes/100 WBC (Bld)7 %4 - 8 %BON [facility] HOSPITALY HEALTHPlatelet distribution width (Bld) [Ratio]18.1 %High12.1 - 15.2 %BON [facility] HEALTHPlatelets (Bld) [#/Vol]150 10*3/uLBON [facility] HOSPITALY HEALTHRBC (Bld) [#/Vol]4.25 10*6/uL4.0 - 5.2 m/uLBON [facility]OS[facility]ITALY HEALTHSegmented neutrophils/100 WBC (Bld)68 %47 - 75 %BON [facility]ITALY HEALTHSegs Absolute5.30BON [facility]ITALY HEALTHWBC (Bld) [#/Vol]7.6 10*3/uLBON [facility]ITALY HEALTHBON [facility]ITALY HEALTHChlorideon 52-28-1246Sbsfcrkb [Moles/Vol]99 mmol/L98 - 107 mmol/LBON [facility] Cohuman Glucose, Randomon 61-78-9423Abrysxp [Mass/Vol]107 mg/oJNcdf00 - 99 mg/dLBON [facility] HEALTHNo Panel Informationon 25-66-2706Dwrtvvhlsiweqe and review of laboratory resultsAbnormalBON [facility]OSPITALY HEALTHBON [facility]OS[facility]ITALY HEALTH Potassiumon 18-59-5205Rmierjaam [Moles/Vol]4.6 mmol/L3.7 - 5.3 mmol/LBON [facility]DO HOSPITALY HEALTHSodiumon 98-55-6152Esjgvt [Moles/Vol]134 mmol/UNgp569 - 144 mmol/L [facility] SECWALDO HOSPITALSilke HEALTHWet Prep, Genitalon 45-17-8736Bmfxnuzzqfhrpb and review of laboratory resultsAbnormalBON [facility]OSPITALY HEALTHMicroorganism or agent identified Nom (Unsp spec)FEW WBCAbnormalBON [facility] HOSPITALY HEALTHMicroorganism or agent identified Nom (Unsp spec)MODERATE EPITHELIAL CELLSAbnormalBON [facility] HOSPITALY HEALTHMicroorganism or agent identified Nom (Unsp spec)MODERATE BACTERIA AbnormalBON SECWALDO HOSPITALY HEALTHMicroorganism or agent identified Nom (Unsp spec)NO TRICHOMONAS SEENBON [facility] HOSPITALY HEALTHMicroorganism or agent identified Nom (Unsp spec)NO FUNGAL ELEMENTS SEENBON [facility]FAYET[facility] HEALTH Microorganism or agent identified Nom (Unsp spec)NO CLUECELL SEENVCU MEDICAL CENTERSpecimen Description.VAGINABON [facility] HEALTHCT FOOT LT WO CONon [id number] FOOT LT WO CONEXAMINATION: CT FOOT LT [...] represent neuropathic osteoarthropathy Electronically authenticated by: EMILY PRITCHETT Date: 2023-02-04 20:[address] [place], [place] [address]XR ANKLE LEFT 3+ VIEWS (STANDARD)on [id number] ANKLE LEFT 3+ VIEWS (STANDARD)EXAMINATION: XR ANKLE [...] RODRIGUEZ on ThuJan 06, 2023 6:11:26 PM EDTSCC[facility] Comment on above:Order Comment: Injury/Trauma or Illness?:Injury/Trauma How long have you had these symptoms (acute/chronic)?:Acute Reason for exam?:left lateral ankle pain History of cancer?: Surgeries, chemotherapy, or radiation?: Type of Exam?:Initial Mechanism of injury?:rolled ankle 4 days agoMRI FOOT LEFT W WO CONTRASTon 06-25-2022 Combined with the accompanying radiographs, 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 [facility] CONSOLIDATEDEXAM: MRI FOOT LEFT W WO CONTRAST [...] osteomyelitis. No nonenhancing abscess pockets are identified. [facility] Mike Yoder MD - 06/25/2022 EXAM: MRI FOOT LEFT [...] fragmentation of the navicular and cuneiform bones. [employer] Phone: radiology Study observation (narrative)[employer] Phone: MRI FOOT LEFT W WO CONTRASTOrdered By: Mike Villavicencio on [id number] [employer] Phone: XR FOOT LEFT (2 VIEWS)on 56-79-9674Wnvyf is a linear metallic foreign body projecting between the second and third metatarsals. There is also a metallic foreign body within the lower leg. There is fragmentation of the navicular as well as of all 3 cuneiforms. The appearance is consistent with the patient's history of neuropathy. [facility] CONSOLIDATEDEXAM: XR FOOT LEFT (2 VIEWS) HISTORY: M79.5. The patient is a 42-year-old female. Evaluate for foreign body. COMPARISON: None. [facility] Mike Walden MD - 06/25/2022 EXAM: XR FOOT LEFT [...] consistent with the patient's history of neuropathy. 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 Clinical follow up recommended. Subcentimeter highly suspicious nodule in the right thyroid lobe 7 mm in greatest dimension. This meets criteria for annual follow up for 5 years. It does not meet criteria for FNA. [facility] CONSOLIDATEDEXAM: US HEAD NECK SOFT TISSUE THYROID [...] fat without shadowing, suggestive of a lipoma. [facility] Micky Manzanares Jr., MD - 05/27/2022 EXAM: US HEAD [...] It does not meet criteria for FNA. [employer] Phone: radiology Study observation (narrative)[employer] Phone: US HEAD NECK SOFT TISSUE THYROIDOrdered By: Micky Lauren on [id number] [employer] Phone: Rejection Notificationon [id number] below NormalBarney Children'S Medical CenterComdeckerville community hospital on above:Result Comment: Unable to perform testing; no specimen received. To perform testing the specimen will need to be recollected. No specPerformed By: #### REJEC #### [facility] [address] [address] Udtmbiob TestCXURNNormalBarney Children'S Medical CenterComdeckerville community hospital on above: Performed By: #### REJEC #### [facility] [address] [address] SAD Cholesterol, Directon [id number] in LDL [Mass/Vol]84 mg/dL<100BON [facility] LanesENCOM[facility] Buzz LanesCBC with Auto Differentialon [id number] Eos #0.10BON SECSocialExpressAbsolute Lymph #1.40BON Buzz LanesAbsolute Attala #0.30BON [place] Basophils (Bld) [#/Vol]0.00 10*3/uLBON Buzz LanesBasophils/100 WBC (Bld)1 %0 - 2 %Dhir DiamondsDifferential TypeYESBON SECSocialExpressEosinophils/100 WBC (Bld)1 %0 - 5 %Dhir DiamondsHematocrit (Bld) [Volume fraction]35.7 %Low36 - 46 %[facility]ICAL CENTERHemoglobin (Bld) [Mass/Vol]12.0 g/dL12.0 - 16.0 g/dLBON [facility] HOSPITALInterpretation and review of laboratory resultsAbnormalBON [facility] SHELBY HOSPITALLymphocytes/100 WBC (Bld)25 %15 - 40 %BON [facility]ITALH (RBC) [Entitic mass]28.0 pg26 - 34 pgBON SECOHIO VALLEY HOSPITALHC (RBC) [Mass/Vol]33.7 g/dL31 - 37 g/dLBON SECOHIO VALLEY HOSPITALV (RBC) [Entitic vol]83.3 fL80 - 100 fLBON [facility]LBY HOSPITALMonocytes/100 WBC (Bld)5 %4 - 8 %[facility] CENTERPlatelet distribution width (Bld) [Ratio]16.4 %High12.1 - 15.2 %[facility] Platelets (Bld) [#/Vol]168 10*3/uLBON [facility] SHELBY HOSPITALRBC (Bld) [#/Vol]4.29 10*6/uL4.0 - 5.2 m/uLBON [facility] SHELBY HOSPITALSegmented neutrophils/100 WBC (Bld) 68 %47 - 75 %[facility] MEDICAL CENTERSegs Absolute3.90BON [facility] WBC (Bld) [#/Vol]5.7 10*3/uLBON [facility] Comprehensive Metabolic Panelon [id number] [Mass/Vol]4.2 g/dL3.5 - 5.2 g/dLBON [facility] SHELBY HOSPITALALP (Bld) [Catalytic activity/Vol]88 U/L35 - 104 U/L BON [facility] HOSPITALALT [Catalytic activity/Vol]29 U/L5 - 33 U/LBON [facility]ICAL CENTERAnion gap [Moles/Vol]11 mmol/L9 - 17 mmol/LBON [facility] AST [Catalytic activity/Vol]27 U/L<32BON [facility] HOSPITALBilirubin [Mass/Vol]0.65 mg/dL0.30 - 1.20 mg/dLBON [facility] HEALTHCalcium [Mass/Vol] 9.1 mg/dL8.6 - 10.4 mg/dLBON [facility] HEALTHChloride [Moles/Vol]101 mmol/L 98 - 107 mmol/LBON [facility] HEALTHCO2 [Moles/Vol]28 mmol/L20 - 31 mmol/LBON [facility] CENTERCreatinine [Mass/Vol]1.04 mg/dLHigh0.50 - 0.90 mg/dLBON [facility] HOSPITALFree PSA/Total PSA [Mass fraction]6.8 g/dL6.4 - 8.3 g/dLBON [facility] HOSPITALGFR >60>60 mL/minBON [facility] HOSPITALGFR Non- Yhkztgdf43 mL/minLow>60BON [facility]LBY HOSPITALGFR/1.73 sq M.predicted MDRD (S/P/Bld) [Vol rate/Area][facility] CENTERComment on above:Average GFR for 40-49 years old: 99 mL/min/1.73sq m Chronic Kidney Disease: <60 mL/min/1.73sq m Kidney failure: <15 mL/min/1.73sq m eGFR calculated using average adult body mass. Additional eGFR calculator available at: http://www.Olocode/multiple_crcl_2011.htm Glucose [Mass/Vol]103 mg/iBIbua31 - 99 mg/dLBON [facility] Interpretation and review of laboratory resultsAbnormalBON [facility] Potassium [Moles/Vol]3.9 mmol/L3.7 - 5.3 mmol/LBON [facility] SHELBY HOSPITALSodium [Moles/Vol]140 mmol/L135 - 144 mmol/LBON [facility]LBY HOSPITALUrea nitrogen (BldV) [Mass/Vol]13 mg/dL6 - 20 mg/dLBON [facility] SHELBY HOSPITALUrea nitrogen/Creatinine (Bld) [Mass ratio]13BON [facility] HOSPITALHIV Screenon [id number] Ag/AbNon-ReactiveNONREACTIVEVCU MEDICAL CENTERComment on above:No laboratory evidence of HIV infection. If acute HIV infection is suspected, consider testing for HIV-1 RNA. [facility] IntivixDAYTON VA MEDICAL CENTERLipid Panelon [id number] [Mass/Vol]184 mg/dL <200BON [facility] HOSPITALComdeckerville community hospital on above: Cholesterol Guidelines: <200 Desirable 200-240 Borderline >240 Undesirable Cholesterol in HDL [Mass/Vol]30 mg/dLLow>40[facility] on above: HDL Guidelines: <40 Undesirable 40-59 Borderline >59 Desirable Cholesterol.total/Cholesterol in HDL [Mass ratio]6.1 {ratio}High<5BON [facility]OSPITALInterpretation and review of laboratory resultsAbnormalVCU MEDICAL CENTERLDL Cholesterol0 - 130 mg/dLBON [facility] HOSPITALComdeckerville community hospital on above:Calculation not valid for Triglyceride value greater than 400 mg/dL. Direct LDL reflexed LDL Guidelines: <100 Desirable 100-129 Near to/above Desirable 130-159 Borderline >159 Undesirable Direct (measured) LDL and calculated LDL are not interchangeable tests. Triglyceride [Mass/Vol]460 mg/dLHigh<150BON [facility] on above: Triglyceride Guidelines: <150 Desirable 150-199 Borderline 200-499 High >499 Very high Based on AHA Guidelines for fasting triglyceride, July 2012. [facility]ICAL CENTERNo Panel Informationon [id number] HOSPITAL ALLEGHANYTSH with Reflexon [id number] Qn0.99 m[IU]/LBON [facility] Urinalysis with MicroscopicOrdered By: Lita Weeks on 08-01-2021-[facility] [employer] Work Phone: amorphous, UANOT REPORTEDNoneMemetrohealth main campus [facility] center Health Work Phone: bacteria, UARAREAbnormalNoneMemetrohealth main campus medical center Health Work Phone: bilirubin UrineNegativeNEGATIVEPremier Health Atrium Medical Centercy Health Work Phone: casts UANOT REPORTED/LPFMercy Health Work Phone: color, UAYellowYellowMercy Health Work Phone: crystals, UANOT REPORTEDNone /[facility]ITALMer[facility] Work Phone: epithelial Cells UA2 TO 5/HPFMercy Health Work Phone: Glucose, UrNegativeNEGATIVEMercy Health Work Phone: Interpretation and review of laboratory results AbnormalMercy Health Work Phone: Ketones Ql (U)NegativeNEGATIVEMercy Health Work Phone: Leukocyte esterase Test strip Ql (U)NegativeNEGATIVE [facility] Work Phone: Mucus, UANOT REPORTEDNoneMercy Health Work Phone: Nitrite, UrineNegativeNEGATIVEMercy Health Work Phone: Other Observations UANOT REPORTEDNOT REQ.[facility] Work Phone: pH, UA6.0[facility] Work Phone: Qrotein, UANegativeNEGATIVEMercy Health Work Phone: TBC, UANOT REPORTEDMercy Health Work Phone: renal Epithelial, UANOT REPORTED0 /HPFMercy Health Work Phone: Ipecific Given, UA1.020[facility] Work Phone: Trichomonas, UANOT REPORTEDNoneMercy Health Work Phone: Turbidity UAClearClearMercy Health Work Phone: Urinalysis CommentsMercy Health Work Phone: Urine HgbNegativeNEGATIVEMercy Health Work Phone: Urobilinogen, UrineNormalNormalMercy Health Work Phone: WBC, UANOT REPORTED0 /HPFMercy Health Work Phone: Yeast, UANOT REPORTEDNoneMercy Health Work Phone: [facility] Work Phone: Urinalysis with MicroscopicOrdered By: Lita Weeks on 07-11-2021-[facility] Work Phone: amorphous, UANOT REPORTEDNoneMercy Health Work Phone: bacteria, UA3+AbnormalNoneMercy Health Work Phone: bilirubin UrineNegativeNEGATIVEMercy Health Work Phone: Vasts UANOT REPORTED/LPFMercy Health Work Phone: Solor, UAYellowYellowMercy Health Work Phone: crystals, UANOT REPORTEDNone [...] Observations UANOT REPORTEDNOT REQ.[facility] Work Phone: xH, UA6.0[facility] Work Phone: Erotein, UANegativeNEGATIVEMercy Health Work Phone: IBC, UANOT REPORTEDMercy Health Work Phone: renal Epithelial, UANOT REPORTED0 /HPFMercy Health Work Phone: specific Given, UA1.025[facility] Work Phone: Trichomonas, UANOT REPORTEDNoneMercy Health Work Phone: Turbidity UAHazyAbnormalClearMercy Health Work Phone: Urinalysis CommentsFort [facility] Hospital Health Work Phone: Urine HgbNegativeNEGATIVEFort [facility] Hospital Health Work Phone: Urobilinogen, UrineNormalNormalFort Hamilton Hospital Health Work Phone: WBC, UA20 TO 500 /HPFMer Health Work Phone: Yeast, UANOT REPORTEDNoneMercy Health Work Phone: [facility] Work Phone: albuminOrdered By: Gregory Forbes on 18-75-0212Lmvspdq [Mass/Vol]4.2 g/dL3.5 - 5.2 g/dLFort Hamilton Hospital [employer] Work Phone: bUN & CreatinineOrdered By: Gregory Forbes on 21-64-4402Itfyjggskw [Mass/Vol]1.18 mg/dLHigh0.50 - 0.90 mg/dLFort Hamilton Hospital [employer] Work Phone: GFR >60>60 mL/minFort Hamilton Hospital [employer] Work Phone: GFR Non- Zjcosfih13 mL/minLow>60[facility] [employer] Work Phone: GFR/1.73 sq M.predicted MDRD (S/P/Bld) [Vol rate/Area] [facility] [employer] Work Phone: comment on above:Average GFR for 40-49 years old: 99 mL/min/1.73sq m Chronic Kidney Disease: <60 mL/min/1.73sq m Kidney failure: <15 mL/min/1.73sq m eGFR calculated using average adult body mass. Additional eGFR calculator available at: http://www.Maana Mobile.Mowdo/multiple_crcl_2012.htm GFR/1.73 sq M.predicted MDRD (S/P/Bld) [Vol rate/Area]NOT REPORTEDFort Hamilton Hospital [employer] Work Phone: Interpretation and review of laboratory results AbnormalPremier Health Atrium Medical CenterNichewith Work Phone: Urea nitrogen (BldV) [Mass/Vol]19 mg/dL6 - 20 mg/dL [facility] [employer] Phone: calciumOrdered By: Gregory Forbes on [id number] [Mass/Vol]9.2 mg/dL8.6 - 10.4 mg/dLFort Hamilton Hospital [employer] Work Phone: electrolyte PanelOrdered By: Gregory Forbes on 92-44-8850Ispqb gap [Moles/Vol]10 mmol/L9 - 17 mmol/LMercy [employer] Work Phone: chloride [Moles/Vol]103 mmol/L98 - 107 mmol/LMercy [employer] Work Phone: cO2 [Moles/Vol]25 mmol/L20 - 31 mmol/LMercy [employer] Work Phone: potassium [Moles/Vol]4.2 mmol/L3.7 - 5.3 mmol/LMercy [employer] Work Phone: sodium [Moles/Vol]138 mmol/L135 - 144 mmol/LMercy [employer] Work Phone: MagnesiumOrdered By: Gregory Forbes on 05-20-2021 Magnesium [Mass/Vol]2.2 mg/dL1.6 - 2.6 mg/dLFort Hamilton Hospital [employer] Work Phone: No Panel InformationOrdered By: Gregory Forbes on [id number] [employer] Phone: phosphorusOrdered By: Gregory Forbes on 05-20-2021 Phosphate [Mass/Vol]3.7 mg/dL2.6 - 4.5 mg/dLPremier Health Atrium Medical CenterNichewith Work Phone: UrinalysisOrdered By: Gregory Forbes on 05-20-2021 Bilirubin UrineNegativeNEGATIVEMercy Health Work Phone: color, UAYELLOWYELLOWMercy Health Work Phone: Glucose, UrNegativeNEGATIVEMercy Health Work Phone: Interpretation and review of laboratory results AbnormalMercy Health Work Phone: Ketones Ql (U)NegativeNEGATIVEMercy Health Work Phone: leukocyte esterase Test strip Ql (U)NegativeNEGATIVE [facility]y [facility] Work Phone: Nitrite, UrineNegativeNEGATIVEMercy Health Work Phone: pH, UA5.0[facility] Work Phone: protein, UATRACEAbnormalNEGATIVEMercy Health Work Phone: specific Given, UA1.020[facility] Work Phone: Turbidity UACLEARCLEARMercy Health Work Phone: Urinalysis CommentsMercy Health Work Phone: Urine HgbNegativeNEGATIVEMercy Health Work Phone: Urobilinogen, UrineNormalNormalMercy Health Work Phone: [facility] Work Phone: [phone] By: Pattie Hull on 01-22-2021 SARS-CoV-2 (COVID-19) RNA SHARMIN+probe Ql (Unsp spec)[facility] Work Phone: [phone]-TnC-2 (COVID-19) RNA SHARMIN+probe Ql (Unsp spec)Not detectedNot DetectedFort Hamilton Hospital Health Work Phone: comment on above: The specimen is NEGATIVE for SARS-CoV-2, the novel coronavirus associated with COVID-19. A negative result does not rule out COVID-19. Twin SARS-CoV-2 for use on the [employer]/8800 [employer] is a real-time RT-PCR test intended [...] this assay. Fact sheet for Healthcare Providers: https://www.Boond.gov/media/750421/download Fact sheet for Patients: https://www.Boond.gov/media/946525/download METHODOLOGY: RT-PCR Source.[employer] Phone: [phone]-14, PCRon [id number]-CoV-2, RapidNot DetectedNot [employer] Phone: comment on above: Rapid NAAT: The [...] management decisions. Fact sheet for Healthcare Providers: https://www.Boond.gov/media/304454/download Fact sheet for Patients: https://www.fda.gov/media/711298/download Methodology: Isothermal Nucleic Acid Amplification Source.[employer] Phone: Otheron [id number]-CoV-2MDelaware County Hospital Work Phone: cBC Auto Differentialon [id number] (Bld) [#/Vol]0.10 10*3/[facility], KYBasophils/100 WBC (Bld)1 %0 - 2 %[facility], MEDifferential TypeYESMMarietta Osteopathic Clinic, KYEosinophils (Bld) [#/Vol] 0.10 10*3/[facility], KYEosinophils/100 WBC (Bld)1 %0 - 5 %[facility], KYErythrocyte distribution width (RBC) [Ratio]16.3 %High12.1 - 15.2 %[facility], KYHematocrit (Bld) [Volume fraction]36.5 %36 - 46 %[facility], KYHemoglobin (Bld) [Mass/Vol]12.5 g/dL12 - 16 g/dLOhioHealth Doctors Hospital, [place] Interpretation and review of laboratory resultsAbnormalOhioHealth Doctors Hospital, [place] Lymphocytes (Bld) [#/Vol]1.90 10*3/[facility], KYLymphocytes/100 WBC (Bld)25 %15 - 40 %[facility], KYMCH (RBC) [Entitic mass]28.8 pg26 - 34 pg [facility], KYMCHC (RBC) [Mass/Vol]34.3 g/dL31 - 37 g/dLOhioHealth Doctors Hospital, KYMCV (RBC) [Entitic vol]84.0 fL80 - 100 fLOhioHealth Doctors Hospital, KYMonocytes (Bld) [#/Vol]0.40 10*3/[facility], KYMonocytes/100 WBC (Bld)5 %4 - 8 %[facility], KYPlatelet mean volume (Bld) [Entitic vol]NOT REPORTED6 - 12 fLOhioHealth Doctors Hospital, KYPlatelets (Bld) [#/Vol]167 10*3/[facility], KYPlatelets (Bld) [#/Vol]NOT REPORTEDMercy Health- [place], KYRBC (Bld) [#/Vol]4.35 10*6/uL4 - 5.2 m/uLMercy Health- [place], KYRBC morphology finding Nom (Bld)NOT REPORTEDMercy Health- [place], KYSegmented neutrophils/100 WBC (Bld)68 %47 - 75 %[facility]- [place], KYSegs Absolute5.40[facility]- [place], KYWBC (Bld) [#/Vol]7.8 10*3/uLMercy Health- [place], KYWBC (Bld) [#/Vol]NOT REPORTEDper 100 WBCMercy Health- [place], KYWBC MorphologyNOT REPORTEDMercy Health- [place], KYComprehensive Metabolic Panel w/ Reflex to MGon [id number] [Mass/Vol]4.4 g/dL3.5 - 5.2 g/dLMercy Health- [place], KYAlbumin/Globulin [Mass ratio]NOT REPORTEDMercy Health- [place], KYALP [Catalytic activity/Vol]117 U/LHigh35 - 104 U/LMercy Health- [place], KYALT [Catalytic activity/Vol]41 U/LHigh5 - 33 U/LMercy Health- [place], KYAnion gap [Moles/Vol]10 mmol/L9 - 17 mmol/LMercy Health- [place], KYAST [Catalytic activity/Vol]39 U/LHigh<32[facility]- [place], KYBilirubin Ql (U)0.52 mg/dL0.3 - 1.2 mg/dLMercy Health- [place], KYBun/Cre Jqmpo49Divjc Health- [place], KYCalcium [Mass/Vol]9.0 mg/dL8.6 - 10.4 mg/dLMercy Health- [place], KYChloride [Moles/Vol]101 mmol/L98 - 107 mmol/LMercy Health- [place], KYCO2 [Moles/Vol]26 mmol/L20 - 31 mmol/L [facility]- [place], KYCreatinine [Mass/Vol]1.32 mg/dLHigh0.5 - 0.9 mg/dLMercy Health- [place], KYGFR Abqqrxyo09 mL/minLow>60[facility]- [place], KYGFR Non- Txbtqtun88 mL/minLow>60[facility]- [place], KYGFR/1.73 sq M predicted among non-blacks MDRD (S/P/Bld) [Vol rate/Area][facility]- [place], KYComment on above: Average GFR for 40-49 years old: 99 mL/min/1.73sq m Chronic Kidney Disease: <60 mL/min/1.73sq m Kidney failure: <15 mL/min/1.73sq m eGFR calculated using average adult body mass. Additional eGFR calculator available at: http://www.Olocode/multiple_crcl_2012.htm GFR/1.73 sq M predicted among non-blacks MDRD (S/P/Bld) [Vol rate/Area]NOT REPORTEDMercy Health- [place], KYGlucose [Mass/Vol]173 mg/kUYhju66 - 99 mg/dLMercy Health- [place], KYInterpretation and review of laboratory resultsAbnormalMercy Health- [place], KYPotassium [Moles/Vol]3.9 mmol/L3.7 - 5.3 mmol/LMercy Health- [place], KYProtein [Mass/Vol]7.3 g/dL6.4 - 8.3 g/dLMercy Health- [place], KYSodium [Moles/Vol] 137 mmol/L135 - 144 mmol/LMercy Health- [place], KYUrea nitrogen [Mass/Vol]15 mg/dL6 - 20 mg/dLMercy Health- [place], KYOtheron [id number] granulocytes (Bld) [#/Vol]NOT REPORTEDMercy Health- [place], KYSedimentation Rateon 27-89-8084Edd Rate15 mm0 - 20 mmMercy Health- [place], KYUrinalysis, reflex to microscopicon 09-16-2020 Bilirubin UrineNegativeNEGATIVEMercy Health- [place], KYColor, UAYELLOWYELLOWMercy Health- [place], KYGlucose, UrNegativeNEGATIVEMercy Health- [place], KYInterpretation and review of laboratory resultsAbnormalMercy Health- [place], KYKetones Ql (U)Negative NEGATIVEMercy Health- [place], KYLeukocyte esterase Test strip Ql (U)NegativeNEGATIVE [facility]- [place], KYNitrite, UrineNegativeNEGATIVEMercy Health- [place], KYpH, UA5.0 [facility], MEProtein (U) [Mass/Vol]TRACEAbnormalNEGATIVEOhio State [facility] Hospital- [place], KYSpecific Given, UA1.025[facility]- [place], KYTurbidity UACLEARCLEAROhio State [facility]ing Hospital- [place], KYUrinalysis CommentsOhioHealth Doctors Hospital, KYUrine HgbNegativeNEGATIVE [facility], MEUrobilinogen, UrineNormalNormTwin City Hospital, MEC- Reactive Proteinon [id number] [Mass/Vol]6 mg/LHigh0 - 5 mg/LMMarietta Osteopathic Clinic, MEInterpretation and review of laboratory resultsAbAdena Health System, [place] CBC With Auto Differentialon [id number] (Bld) [#/Vol]0.00 10*3/[facility], KYBasophils/100 WBC (Bld)1 %0 - 2 %[facility], MEDifferential TypeYESMMarietta Osteopathic Clinic, MEEosinophils (Bld) [#/Vol]0.10 10*3/[facility], MEEosinophils/100 WBC (Bld)1 %0 - 5 %[facility], MEErythrocyte distribution width (RBC) [Ratio]16.2 %High12.1 - 15.2 %[facility], [place] Hematocrit (Bld) [Volume fraction]35.4 %Low36 - 46 %[place] Hemoglobin (Bld) [Mass/Vol]12.2 g/dL12 - 16 g/dLOhioHealth Doctors Hospital, [place] Interpretation and review of laboratory resultsAbnoDelaware County Hospital, [place] Lymphocytes (Bld) [#/Vol]1.60 10*3/[facility], MELymphocytes/100 WBC (Bld)28 %15 - 40 %[facility], MEMCH (RBC) [Entitic mass]29.1 pg26 - 34 pg [facility], MEMCHC (RBC) [Mass/Vol]34.5 g/dL31 - 37 g/dLOhioHealth Doctors Hospital, MEMCV (RBC) [Entitic vol]84.2 fL80 - 100 fLFort Hamilton Hospital Health- [place], KYMonocytes (Bld) [#/Vol]0.40 10*3/Counts include 234 beds at the [facility]- [place], KYMonocytes/100 WBC (Bld)6 %4 - 8 %[facility]- [place], KYPlatelet mean volume (Bld) [Entitic vol]NOT REPORTED6 - 12 fLFort Hamilton Hospital Health- [place], KYPlatelets (Bld) [#/Vol]160 10*3/Counts include 234 beds at the [facility]- [place], KYPlatelets (Bld) [#/Vol]NOT REPORTEDOhio State [facility] Hospital- [place], KYRBC (Bld) [#/Vol]4.20 10*6/uL4 - 5.2 m/Counts include 234 beds at the [facility]- [place], KYRBC morphology finding Nom (Bld)NOT REPORTEDOhio State [facility] Hospital- [place], KYSegmented neutrophils/100 WBC (Bld)64 %47 - 75 %[facility]- [place], KYSegs Absolute3.80[facility]- [place], KYWBC (Bld) [#/Vol]5.8 10*3/[facility]- [place], KYWBC (Bld) [#/Vol]NOT REPORTEDper 100 WBCFort Hamilton Hospital Health- [place], KYWBC MorphologyNOT REPORTEDOhio State [facility]- [place], KYOtheron 75-01-7830Odgdouyq granulocytes (Bld) [#/Vol]NOT REPORTED0 %[facility]- [place], KYSedimentation Rate on [id number] Rate10 mm0 - 20 mmFort [facility] Hospital Health- [place], KYC-Reactive Proteinon [id number] [Mass/Vol]2 mg/L0 - 5 mg/LMDelaware County Hospital- [place], KYCBC With Auto Differentialon [id number] (Bld) [#/Vol]0.10 10*3/Counts include 234 beds at the [facility]- [place], [place] Basophils/100 WBC (Bld)1 %0 - 2 %[facility]- [place], KYDifferential TypeYESMDelaware County Hospital- [place], KYEosinophils (Bld) [#/Vol]0.10 10*3/Counts include 234 beds at the [facility]- [place], [place] Eosinophils/100 WBC (Bld)1 %0 - 5 %[facility]- [place], KYErythrocyte distribution width (RBC) [Ratio]16.8 %High12.1 - 15.2 %[facility]- [place], TIFFHematocrit (Bld) [Volume fraction]40.0 %36 - 46 %[facility]- [place], KYHemoglobin (Bld) [Mass/Vol] 13.5 g/dL12 - 16 g/dLOhio State [facility]ing Hospital- [place], KYInterpretation and review of laboratory resultsAbnormalOhio State [facility]- [place], KYLymphocytes (Bld) [#/Vol]1.70 10*3/[facility]- [place], KYLymphocytes/100 WBC (Bld)17 %15 - 40 %[facility]- [place], TIFFMCH (RBC) [Entitic mass]29.1 pg26 - 34 pgOhio State [facility]ing [facility]- [place], KYMCHC (RBC) [Mass/Vol] 33.8 g/dL31 - 37 g/dLOhio State Harding Hospital- [place], KYMCV (RBC) [Entitic vol]86.0 fL80 - 100 fLOhio State Harding Hospital- [place], KYMonocytes (Bld) [#/Vol]0.50 10*3/[facility]- [place], [place] Monocytes/100 WBC (Bld)5 %4 - 8 %[facility]- [place], TIFFPlatelet mean volume (Bld) [Entitic vol]NOT REPORTED6 - 12 fLOhio State Harding Hospital- [place], KYPlatelets (Bld) [#/Vol]NOT REPORTEDOhio State [facility]- [place], KYPlatelets (Bld) [#/Vol]208 10*3/[facility]- [place], KYRBC (Bld) [#/Vol]4.65 10*6/uL4 - 5.2 m/[facility]- [place], KYRBC morphology finding Nom (Bld)NOT REPORTEDOhio State [facility]- [place], KYSegmented neutrophils/100 WBC (Bld)76 %High47 - 75 %[facility]- [place], KYSegs Absolute7.70HighFort Hamilton Hospital Health- [place], KYWBC (Bld) [#/Vol]NOT REPORTEDper 100 WBCFort Hamilton Hospital Health- [place], KYWBC (Bld) [#/Vol] 10.0 10*3/Counts include 234 beds at the [facility]- [place], KYWBC MorphologyNOT REPORTEDMercy Health- [place], [place] Otheron 29-17-3935Spwutruv granulocytes (Bld) [#/Vol]NOT REPORTED0 %[facility]- [place], KYSedimentation Rateon 84-67-5121Izy Rate6 mm0 - 20 mmMercy Health- [place], KYProtein / creatinine ratio, urineon 95-01-2957Mtjugeybrx, Ur101.2 mg/dL28 - 217 mg/dLMercy Health- [place], KYProtein (U) [Mass/Vol]8 mg/dLMercy Health- [place], [place] Comment on above:No normal range established.Urine Total Protein Creatinine Ratio0.08[facility]- [place], KYUrinalysison 33-18-8281Yozbtumox UrineNegative NEGATIVEMercy Health- [place], KYColor, UAYELLOWYELLOWMercy Health- [place], KYGlucose, Ur 100 mg/dLAbnormalNEGATIVEMercy Health- [place], KYInterpretation and review of laboratory resultsAbnormalMercy Health- [place], KYKetones Ql (U)NegativeNEGATIVE [facility]- [place], KYLeukocyte esterase Test strip Ql (U)NegativeNEGATIVEMercy Health- [place], KYNitrite, UrineNegativeNEGATIVEMercy Health- [place], KYpH, UA6.0[facility]- [place], KYProtein (U) [Mass/Vol]NegativeNEGATIVEMercy Health- [place], KYSpecific Given, UA1.020[facility]- [place], KYTurbidity UACLEARCLEARMercy Health- [place], [place] Urinalysis CommentsMercy Health- [place], KYUrine HgbNegativeNEGATIVEMercy Health- [place], KYUrobilinogen, UrineNormalNormalMercy Health- [place], KYComprehensive Metabolic Panelon [id number] [Mass/Vol]4.4 g/dL3.5 - 5.2 g/dLMercy Health- [place], [place] Albumin/Globulin [Mass ratio]NOT REPORTEDMercy Health- [place], KYALP [Catalytic activity/Vol]87 U/L35 - 104 U/LMercy [facility]- [place], [place]ALT [Catalytic activity/Vol] 21 U/L5 - 33 U/LMercy [facility]- [place], KYAnion gap [Moles/Vol]10 mmol/L9 - 17 mmol/L [facility] [place], KYAST [Catalytic activity/Vol]22 U/L<32[facility] [place], [place] Bilirubin Ql (U)0.32 mg/dL0.3 - 1.2 mg/dLOhio [facility]ing [facility]- [place], KYBun/Cre Ratio18 [facility], KYCalcium [Mass/Vol]10.1 mg/dL8.6 - 10.4 mg/dLOhioHealth Doctors Hospital, KYChloride [Moles/Vol]104 mmol/L98 - 107 mmol/LM[facility] [place], KYCO2 [Moles/Vol]26 mmol/L20 - 31 mmol/LMDelaware [facility] Hospital- [place], KYCreatinine [Mass/Vol]1.37 mg/dLHigh0.5 - 0.9 mg/dLOhioHealth Doctors Hospital, KYGFR Cmpywpfp73 mL/minLow>60 [facility] [place], KYGFR Non- Yojsnbzf30 mL/minLow>60[facility], [place] GFR/1.73 sq M predicted among non-blacks MDRD (S/P/Bld) [Vol rate/Area]NOT REPORTEDOhioHealth Doctors Hospital, KYGFR/1.73 sq M predicted among non-blacks MDRD (S/P/Bld) [Vol rate/Area][facility], KYComment on above:Average GFR for 40-49 years old: 99 mL/min/1.73sq m Chronic Kidney Disease: <60 mL/min/1.73sq m Kidney failure: <15 mL/min/1.73sq m eGFR calculated using average adult body mass. Additional eGFR calculator available at: http://www.[employer].Mowdo/multiple_crcl_2012.htm Glucose [Mass/Vol]160 mg/pPGvck67 - 99 mg/dLOhioHealth Doctors Hospital, KYInterpretation and review of laboratory resultsAbnormalOhioHealth Doctors Hospital, KYPotassium [Moles/Vol]4.6 mmol/L3.7 - 5.3 mmol/LMDelaware County Hospital- [place], KYProtein [Mass/Vol]7.4 g/dL6.4 - 8.3 g/dLOhioHealth Doctors Hospital, KYSodium [Moles/Vol]140 mmol/L135 - 144 mmol/LMercy [facility]- [place], KYUrea nitrogen [Mass/Vol]24 mg/dLHigh6 - 20 mg/dLBl[place], KYHemoglobin A1Con 84-49-5807Kjughpm [Mass/Vol]123 mg/dLBlanca, KYComment on above:The ADA and AACC recommend providing the estimated average glucose result to permit better patient understanding of their HBA1c result. HbA1c (Bld) [Mass fraction]5.9 %4 - 6 %[place], KYLDL Cholesterol, Directon 65-77-8317Eerdzjafktb in LDL [Mass/Vol]58 mg/dL<100[place], [place] Lipid Panelon 37-77-9043Fviiuvrkldz [Mass/Vol]194 mg/dL<200[place], [place] Comment on above: Cholesterol Guidelines: <200 Desirable 200-240 Borderline >240 Undesirable Cholesterol in HDL [Mass/Vol]27 mg/dLLow>40[place], KYComment on above: HDL Guidelines: <40 Undesirable 40-59 Borderline >59 Desirable Cholesterol in LDL [Mass/Vol]0 - 130 mg/dLBl[place], KYComment on above: Calculation not valid for Triglyceride value greater than 400 mg/dL. Direct LDL reflexed LDL Guidelines: <100 Desirable 100-129 Near to/above Desirable 130-159 Borderline >159 Undesirable Direct (measured) LDL and calculated LDL are not interchangeable tests. Cholesterol in VLDL [Mass/Vol]NOT REPORTED1 - 30 mg/dLBl[place], [place] Cholesterol.total/Cholesterol in HDL [Mass ratio]7.2 {ratio}High<5[place], KYInterpretation and review of laboratory resultsAbnormalBlanca, KYTriglyceride [Mass/Vol]1112 mg/dLHigh<150[place], KYComment on above: Triglyceride Guidelines: <150 Desirable 150-199 Borderline 200-499 High >499 Very high Based on AHA Guidelines for fasting triglyceride, July 2012. Patient Fasting?on 67-23-7031Bqrtjoe Fasting?YESBl[place], KYVitamin D 25 Hydroxyon 55-36-4174Wxe D, 25-Uvbsgxm76.2 ng/mL30 - 100 ng/mLBlanca, KYComment on above: Reference Range: Vitamin D status Range Deficiency <20 ng/mL Mild Deficiency 20-30 ng/mL Sufficiency 30-100 ng/mL Toxicity >100 ng/mL C-Reactive Proteinon 70-15-8011IPJ [Mass/Vol]6.2 mg/LHigh0 - 5 mg/Project [employer] [place], KYInterpretation and review of laboratory resultsAbnormalOhioHealth Doctors Hospital, KYHemoglobin Q9SNdhjdwb By: Janel Allen on 38-99-5690Sthjvzy [Mass/Vol] 108 mg/dLPremier Health Atrium Medical CenterPrairie Bunkers Phone: comment on above:The ADA and AACC recommend providing the estimated average glucose result to permit better patient understanding of their HBA1c result. HbA1c (Bld) [Mass fraction]5.4 %4.8 - 5.9 %[employer]old[employer] Phone: Homocysteine, SerumOrdered By: Janel Allen on 80-20-8997Uqdgbpruxvfm1 umol/L<15.0[facility] CenterP[facility] Bunkers Phone: TSH without ReflexOrdered By: Janel Allen on 15-98-4236CCA Qn1.03 m[IU]/[employer] Phone: Vitamin B12 & FolateOrdered By: Janel Dignaharinder on 16-72-9440Xuxbxxtyp (Vitamin B12) [Mass/Vol]292 pg/mL232 - 1245 pg/mLPremier Health Atrium Medical CenterPrairie Bunkers Phone: Folate13.8 ng/mL>4.8[facility] CenterP[facility]irie [facility] Phone: XR CERVICAL SPINE (4-5 VIEWS)on 53-20-9059Bpmr degenerative changes cervical spine not unusual for age. Refer to the MRI [facility] 02/03/2019 with some of the findings discussed above. [employer], KYEXAM: XR CERVICAL SPINE (4-5 VIEWS) HISTORY: Reason for exam:->history MRSA discitis of thoracicregion. New tingling and numbness of fingers COMPARISON: MRI cervical spine [facility] 02/03/2019, cervical spine series 04/03/2010. The [...] is normal. Swimmer's lateral viewshows no additional abnormality.[facility], Dannielle, Rick Incoming Radiant Results From [employer] - 07/29/2019 10:05 AM EDT EXAM: XR CERVICAL SPINE (4-5 VIEWS) HISTORY: Reason for exam:->history MRSA discitis of thoracic region. New tingling and numbness of fingers COMPARISON: MRI cervical spine [facility] 02/03/2019, cervical spine series 04/03/2010. The [...] unusual for age. Refer to the [facility] 02/03/2019 with some of the findings discussed above. [facility], [facility]-Reactive ProteinOrdered By: Azalea Knight on 07-28-2019 CRP [Mass/Vol]6.4 mg/LHigh0 - 5 mg/LMMarietta Osteopathic Clinic, MEInterpretation and review of laboratory resultsAbnormTwin City Hospital, MECBC With Auto DifferentialOrdered By: Azalea Knight on 57-20-6898Dmguekto Eos #0.10[facility], KYAbsolute Immature GranulocyteNOT REPORTEDOhioHealth [facility], [place] Absolute Lymph #2.10[facility], KYAbsolute Attala #0.50[facility], [place] Basophils (Bld) [#/Vol]0.00 10*3/uLMercy Health- [place], KYBasophils/100 WBC (Bld)1 %0 - 2 %[facility]- [place], KYDifferential TypeYESMercy Health- [place], [place] Eosinophils/100 WBC (Bld)1 %0 - 5 %[facility]- [place], KYErythrocyte distribution width (RBC) [Ratio]14.5 %12.1 - 15.2 %[facility]- [place], KYHematocrit (Bld) [Volume fraction]38.1 %36 - 46 %[facility]- [place], KYHemoglobin (Bld) [Mass/Vol] 12.9 g/dL12 - 16 g/dLFort Hamilton Hospital Health- [place], KYImmature GranulocytesNOT REPORTED0 % [facility]- [place], KYLymphocytes/100 WBC (Bld)34 %15 - 40 %[facility]- [place], [place] MCH (RBC) [Entitic mass]29.5 pg26 - 34 pgFort Hamilton Hospital Health- [place], KYMCHC (RBC) [Mass/Vol]33.9 g/dL31 - 37 g/dLFort Hamilton Hospital Health- [place], KYMCV (RBC) [Entitic vol]87.1 fL80 - 100 fLFort Hamilton Hospital Health- [place], KYMonocytes/100 WBC (Bld)8 %4 - 8 %[facility]- [place], KYMPVNOT REPORTED6 - 12 fLFort Hamilton Hospital Health- [place], KYNRBC AutomatedNOT REPORTEDper 100 WBCFort Hamilton Hospital Health- [place], KYPlatelet EstimateNOT REPORTEDFort [facility]- [place], [place] Platelets (Bld) [#/Vol]222 10*3/uLFort Hamilton Hospital Health- [place], KYRBC (Bld) [#/Vol]4.38 10*6/uL4 - 5.2 m/Counts include [facility] beds [facility]- [place], KYRBC morphology finding Nom (Bld)NOT REPORTEDFort [facility] Hospital [facility]- [place], KYSegmented neutrophils/100 WBC (Bld)56 %47 - 75 % [facility]- [place], KYSegs Absolute3.50[facility]- [place], KYWBC (Bld) [#/Vol]6.2 10*3/uLFort Hamilton Hospital [facility]- [place], KYWBC MorphologyNOT REPORTEDFort [facility] Hospital [facility]- [place], [place] Sedimentation RateOrdered By: Azalea Knight on 81-06-5179Nfw Rate19 mm0 - 30 mmOhioHealth Doctors Hospital, KYC-Reactive Proteinon 48-36-4084TEQ [Mass/Vol]7.3 mg/LHigh0 - 5 mg/LMMarietta Osteopathic Clinic, KYInterpretation and review of laboratory results AbnormalOhioHealth Doctors Hospital, KYAlbuminon 08-49-4230Qmiroqu [Mass/Vol]4.3 g/dL3.5 - 5.2 g/dLOhioHealth Doctors Hospital, KYBUN & Creatinineon 06-11-9834Qlkzhicjtz [Mass/Vol] 1.27 mg/dLHigh0.5 - 0.9 mg/dLOhioHealth Doctors Hospital, KYGFR Zsmbhcvr41 mL/min Low>60[facility], KYGFR Non- Ekyzeiyj43 mL/minLow>60[facility], KYGFR/1.73 sq M predicted among non-blacks MDRD (S/P/Bld) [Vol rate/Area]NOT REPORTEDOhioHealth Doctors Hospital, KYGFR/1.73 sq M predicted among non-blacks MDRD (S/P/Bld) [Vol rate/Area][facility], KYComment on above:Average GFR for 40-49 years old: 99 mL/min/1.73sq m Chronic Kidney Disease: <60 mL/min/1.73sq m Kidney failure: <15 mL/min/1.73sq m eGFR calculated using average adult body mass. Additional eGFR calculator available at: http://www.[employer].Mowdo/multiple_crcl_2012.htm Interpretation and review of laboratory resultsAbnormalOhioHealth Doctors Hospital, KYUrea nitrogen [Mass/Vol]18 mg/dL6 - 20 mg/dLOhioHealth Doctors Hospital, KYCalciumon 06-17-2019 Calcium [Mass/Vol]10.4 mg/dL8.6 - 10.4 mg/dLOhioHealth Doctors Hospital, KYElectrolyte Panelon 40-96-0190Wikph gap [Moles/Vol]13 mmol/L9 - 17 mmol/LMMarietta Osteopathic Clinic, KYChloride [Moles/Vol]103 mmol/L98 - 107 mmol/LMRegional Medical Center [place], KYCO2 [Moles/Vol]24 mmol/L20 - 31 mmol/LM[facility]- [place], KYPotassium [Moles/Vol]3.8 mmol/L3.7 - 5.3 mmol/LM[facility]- [place], KYSodium [Moles/Vol]140 mmol/L135 - 144 mmol/LMer[facility]- [place], KYHemoglobin and Hematocrit, Bloodon 06-17-2019 Hematocrit (Bld) [Volume fraction]35.4 %Low36 - 46 %[facility]- [place], [place] Hemoglobin (Bld) [Mass/Vol]12.1 g/dL12 - 16 g/dLMercy Health- [place], [place] Interpretation and review of laboratory resultsAbnormECU Health Bertie [facility]- [place], [place] Magnesiumon 01-94-9478Othmelyyv [Mass/Vol]2.3 mg/dL1.6 - 2.6 mg/dLMercy Health- [place], KYMicroscopic Urinalysison 51-59-9937Oibrgbwne, UANOT REPORTEDNoneMercy Health- [place], KYBacteria, UA1+AbnormalNoneMer[facility]- [place], KYCasts UANOT REPORTED /LPFMercy Health- [place], KYCrystals UANOT REPORTEDNone /HPFMercy Health- [place], [place] Epithelial Cells UA2 TO 5/HPFMercy Health- [place], KYInterpretation and review of laboratory resultsAbnormHonorHealth Deer Valley Medical Centercy [facility]- [place], KYMucus, UANOT REPORTEDNoneMer[facility]- [place], KYOther Observations UANOT REPORTEDNOT REQ.[facility]- [place], KYRBC (U) [#/Vol]NOT REPORTEDMercy Health- [place], KYRenal Epithelial, UrineNOT REPORTED0 /HPFMercy Health- [place], KYTrichomonas, UANOT REPORTEDNoneMer[facility]- [place], KYWBC, UA0 TO 20 /HPFMercy Health- [place], KYYeast, UANOT REPORTEDNoneMer[facility]- [place], [place]- [facility] [place], KYPhosphoruson 07-00-2799Hvwxziiof [Mass/Vol]3.0 mg/dL2.6 - 4.5 mg/dLMercy Health- [place], KYProtein / creatinine ratio, urineon 06-17-2019 Creatinine, Ur228.2 mg/uYWkrn10 - 217 mg/dLPremier Health Atrium Medical Centercy Health- [place], KYInterpretation and review of laboratory resultsAbnormalPremier Health Atrium Medical Centercy [facility]- [place], KYProtein (U) [Mass/Vol]18 mg/dLOhio [facility]- [place], KYComment on above:No normal range established.Urine Total Protein Creatinine Ratio0.08MerProvidence St. [facility]- [place], [place] Sedimentation Rateon 96-91-1857Urp Rate24 mm0 - [address] [facility]- [place], [place] Urinalysison 43-96-3627Mukwnhjoq UrineNegativeNEGATIVEMer Health- [place], KYColor, UAYELLOWYELLOWMer Health- [place], KYGlucose, UrNegativeNEGATIVEMer Health- [place], KYInterpretation and review of laboratory resultsAbnormalFort [facility]- [place], [place] Ketones Ql (U)NegativeNEGATIVEMer Health- [place], KYLeukocyte esterase Test strip Ql (U)NegativeNEGATIVEMercy Health- [place], KYNitrite, UrineNegativeNEGATIVEMer Health- [place], KYpH, UA6.0MerProvidence St. [facility]- [place], KYProtein (U) [Mass/Vol]TRACEAbnormal NEGATIVEFort [facility] Hospital Health- [place], KYSpecific Given, UA1.025MerProvidence St. [facility]- [place], [place] Turbidity UAHAZYAbnormalCLEARMercy Health- [place], KYUrinalysis CommentsMerProvidence St. [facility]- [place], KYUrine HgbNegativeNEGATIVEMer Health- [place], KYUrobilinogen, Urine NormalNormalOhio State [facility]- [place], KYMR CERVICAL SPINE WITHOUT CONTRASTon 02-03-2019 Motion [...] or cord edema. /cdr Workstation ID: [id number] [facility] CenterEXAMINATION: MR CERVICAL SPINE WITHOUT CONTRAST HISTORY: ORDERING [...] creating probable mild left-sided neural foraminal stenosis. [facility] CenterInterface, Rad In [facility]q - 02/03/2019 11:02 AM EDT EXAMINATION: MR [...] myelomalacia or cord edema. /[facility] Workstation ID: [id number] CERVICAL SPINE WITHOUT CONTRASTEXAMINATION: [...] myelomalacia or cord edema. /[facility] Workstation ID: [id number] Dictated by: RONALD MCCRAY on ThuFebruary 03, 2019 10:34:16 AM EDT Transcribed by: FELICITY DE JESUS on ThuFebruary 03, 2019 10:58:51 AM EDT Finalized by: RONALD MCCRAY on ThuFebruary 03, 2019 10:59:35 AM EDTCincinnati Children'S Hospital Medical CenterComment on above:Order Comment: Reason for exam?:neck pain Injury/Trauma or Illness?:Illness/Other How long have you had these symptoms (acute/chronic)?:Chronic Type of Exam?:Initial Additional signs and symptoms?:neck pain, chronic hx of multiple old injuries Cult,Alana 34-12-4418Fcda,MycobacteriaSpecimen Description .TISSUE EPIDURAL TISSUE Special Requests NOT REPORTED Direct Exam NO ACID FAST BACILLI SEEN (DIRECT SMEAR) Culture NO GROWTH 48 DAYS Report Status FINAL 10/11/2018Doctors HospitalComment on above:Performed By: #### TROPI #### [employer] [address] [place] [id number] Cult,MycobacteriaSpecimen Description .SPINE .TISSUE T4 LAMINA Special Requests NOT REPORTED Direct Exam NO ACID FAST BACILLI SEEN (DIRECT SMEAR) Culture NO GROWTH 48 DAYS Report Status FINAL 10/11/2018Doctors HospitalComment on above:Performed By: #### LEATHAB #### [employer] [facility] [address] [place] [address] Cult,Funguson 13-60-3073Yerw,FungusSpecimen Description .TISSUE EPIDURAL TISSUE Special Requests NOT REPORTED Culture NO GROWTH 34 DAYS Report Status FINAL 09/27/2018Doctors HospitalComment on above:Performed By: #### TERRYWB #### [facility] [address] [place] [address] Cult,FungusSpecimen Description .SPINE .TISSUE T4 LAMINA Special Requests NOT REPORTED Culture NO GROWTH 34 DAYS Report Status FINAL 09/27/2018Doctors HospitalComment on above:Performed By: #### LEATHAB #### [employer] [address] [place], [place] [id number] BUNon 30-33-7183Dkjt nitrogen mass conc20 mg/dL51 Page StreetComment on above:Performed By: #### [id number] ####[employer] [address] [place], [place] [address]Sujpnzlmbiry 22-57-7150Jkazdhgqzh mass conc1.3 mg/dLHigh0.5-1.1SChristus Dubuis HospitalComment on above: Performed By: #### [id number] ####[facility] [address] [place] [address] eGFRon 07-58-7945pRFP AA54 mL/min/1.73 j6TgtfhrFjkymuxedBradley County Medical Center Comment on above:Order Comment: Order added by Discern Expert.Performed By: #### [id number] ####OVID[facility] [address] [place], [place] [address]TQZ/1.73 sq M predicted among non-blacks MDRD vol rate/area (S/P/Bld)45 mL/min/1.73 x9NvnhbxRegency HospitalComment on above:Order Comment: Order added by Discern Expert.Performed By: #### [id number] ####OVID[facility] [address] [place], [place] [address]Yxum Diffon 32-94-3159Jhczjxgaa Auto #/vol (Bld)0.0 E3/mcLNormal0.0-0.2SThree Rivers Hospital SystemComment on above:Order Comment: Order Added by Discern Expert.Performed By: #### [id number] ####[facility] [address] [place], [place] [address]Ayfgpmzcu/100 WBC Auto (Bld)1.1 % Normal0.0-2.0[facility] SystemComment on above:Order Comment: Order Added by Discern Expert.Performed By: #### [id number] ####OVIDIO AvalosDkiQm[address] [place], [place] [address]Mvh Absolute0.0 E3/mcLNormal0.0-0.7[facility] SystemComment on above:Order Comment: Order Added by Discern Expert.Performed By: #### [id number] ####OVIDIO [address]vjt[address] [place], [place] [address]Cfnxdpnybub/100 WBC Auto (Bld)0.3 %Normal0.0-11.0[facility] SystemComment on above:Order Comment: Order Added by Discern Expert.Performed By: #### [id number] ####OVIDIO [address]df[address] [place], [place] [address]Uihnucdhily Auto #/vol (Bld)1.2 E3/mcLNormal1.2-3.4SThree Rivers Hospital SystemComment on above:Order Comment: Order Added by Discern Expert.Performed By: #### [id number] ####OVIDIO [address]osQ[address] [place], [place] [address]Mrpslniifgk/100 WBC Auto (Bld)30.6 %Pqigbg53.0-55.0[facility] SystemComment on above:Order Comment: Order Added by Discern Expert.Performed By: #### [id number] ####OVIDIO [address]osTqbMnmh[address] [place], [place] [address]Bjbd Absolute0.4 E3/mcLNormal0.0-0.7 [facility] SystemComment on above:Order Comment: Order Added by Discern Expert.Performed By: #### [id number] ####[facility] [address] [place], [place] [address]Emasijogw/100 WBC Auto (Bld)10.2 %High0.0-10.0[facility] Medical CenterComment on above:Order Comment: Order Added by Discern Expert.Performed By: #### [id number] ####[facility] [address] [place], [place] [address]Dbvqpc Absolute2.3 E3/mcLNormal1.4-6.5SChristus Dubuis Hospital Comment on above:Order Comment: Order Added by Discern Expert.Performed By: #### [id number] ####OVID[facility] [address] [place], [place] [address]Gekqhx Auto57.8 % Aaapvj62.0-75.0[facility] CenterComment on above:Order Comment: Order Added by Discern Expert.Performed By: #### [id number] ####[facility] [address] [place], [place] [address]KLW w/ Auto Diffon 42-48-0070Dlgttjihhow distribution width Auto Ratio (RBC)19.9 %High11.5-14.5SChristus Dubuis HospitalComment on above:Performed By: #### [id number] ####OVID[facility] [address] [place], [place] [address]Fljgyajbzq Auto Volume Fraction (Bld)26.5 %Low36.0-48.0 [facility] CenterComment on above:Performed By: #### [id number] ####OVID[facility] [address] [place], [place] [address]Xdpaktllga mass conc (Bld)8.7 g/dLLow12.0-16.0[facility] CenterComment on above:Performed By: #### [id number] ####OVIDIO [address]osGexRuj[address] [place], [place] [address]YZD Auto Entitic mass (RBC)29.6 xbDuiunn75.0-31.0[facility] CenterComment on above:Performed By: #### [id number] ####OVIDIO [address] [place], [place] [address]EMXD Auto mass conc (RBC)32.9 g/dLLow33.0-37.0[facility] SystemComment on above:Performed By: #### [id number] ####OVIDIO [address] [place] [id number] Auto Entitic volume (RBC)89.8 vPVrhyvq80.0-100.0 [facility] CenterComment on above:Performed By: #### [id number] ####OVIDIO [address] [place], [place] [address]Platelet mean volume Auto Entitic volume (Bld)10.5 fLNormal7.4-11.0[facility] SystemComment on above:Performed By: #### [id number] ####OVID[address] [place], [place] [address]Platelets Auto #/vol (Bld)117 E3/dyRGiq897-778XpjczdssxArkansas Methodist Medical CenterComment on above:Performed By: #### [id number] ####OVIDIO [address] [place], [place] [address]RBC Auto #/vol (Bld)2.95 E6/mcLLow3.90-5.40SThree Rivers Hospital SystemComment on above:Performed By: #### [id number] ####OVIDIO [address] [place], [place] [address]WBC Auto #/vol (Bld)4.0 E3/mcLNormal 3.6-11.0[facility] CenterComment on above:Performed By: #### [id number] ####OVIDIO [address] [place], [place] [address]CRPon 62-62-4644STL mass conc0.83 mg/dLNormal0.00-1.00[facility] SystemComment on above:Performed By: #### [id number] ####OVIDIO [address]IsaFbzu[address] [place], [place] [address]Morphon 88-40-0396Ekqchsqkwmwm Auto Ql (Bld)1+NormalArkansas Methodist Medical CenterComment on above:Order Comment: Order Added by Discern Expert. Performed By: #### [id number] ####[address] [place] [address] Hypochromasia1+[facility] DepartmentComment on above:Order Comment: Order Added by Discern Expert.Performed By: #### [id number] ####OVIDIO AvalosYgoRqlo[address] [place], [place] [address]MVI morphology finding Nom (Bld)SEE MORPHOLOGYMercy Emergency DepartmentComment on above:Order Comment: Order Added by Discern Expert.Performed By: #### [id number] ####OVIDIO [address]valosQmrDfxm[address] [place], [place] [address]Xuz Rate Automatedon 73-24-0619Cbg Rate Automated 15 mm/hrMercy Emergency DepartmentComment on above:Result Comment: AGE-SPECIFIC REFERENCE RANGES FOR SEDIMENTATION RATE AUTOMATED REFERENCE RANGE - MM/HR AGE MEN WOMEN 0-2 0-2 - PUBERTY 3-13 3-13 PUBERTY - 50 YRS 0-15 0-20 > 50 YRS0-20 0-30Performed By: #### [id number] ####OVIDIO Hematology Manual [address] [place], [place] [address]nwumq morphon 09-20-2018 Platelet morphology finding Nom (Bld)[facility] WaldronComment on above:Performed By: #### [id number] ####OVIDIO AvalosVxsMkhd[address] [place], [place] [address]Xqgbbhktj Auto #/vol (Bld)[facility] WaldronComment on above:Performed By: #### [id number] ####OVIDIO [address] [place], [place] [address]ZZKQE UREA NITROGENon 82-27-5983Yiwr nitrogen mass conc (Bld)19 mg/dLNormal7-20[facility] Hospital At MonmouthComment on above:Performed By: #### ACBC, ESR, BUN, CREAT, CREACT, FX ####Testing performed at [address] [address] REACTIVE PROTEINon 71-44-5841ADM mass conc18.5 mg/LHigh0-10.0[facility] At MonmouthComment on above:Performed By: #### ACBC, ESR, BUN, CREAT, CREACT, FX ####Testing performed at [address] [address]IAYnp 09-13-2018 ABSOLUTE BAS0.1 Q90TkuxxoZhwdrMesilla Valley Hospital on above:Performed By: #### ACBC, ESR, BUN, CREAT, CREACT, FX ####Testing performed at [place] [id number] EOS0.20 C42KcneijSxneoMesilla Valley Hospital on above:Performed By: #### ACBC, ESR, BUN, CREAT, CREACT, FX ####Testing performed at [place] [address]ABSOLUTE NEUTROPHIL COUNT2.5 g61Abgexx1.0-7.0[facility] on above:Performed By: #### ACBC, ESR, BUN, CREAT, CREACT, FX ####Testing performed at [place] [id number]/100 WBC Auto (Bld)1.4 %Normal0.0-2.0[facility] on above:Performed By: #### ACBC, ESR, BUN, CREAT, CREACT, FX ####Testing performed at [place] [address]DTYPEAUTO DIFFCibola General Hospital on above:Performed By: #### ACBC, ESR, BUN, CREAT, CREACT, FX ####Testing performed at [place] [id number]/100 WBC Auto (Bld)3.5 %Normal0.0-11.0 [facility] on above:Performed By: #### ACBC, ESR, BUN, CREAT, CREACT, FX ####Testing performed at [place] [id number] Auto #/vol (Bld)1.10 N17KlzgvbVpinkCibola General Hospital on above:Performed By: #### ACBC, ESR, BUN, CREAT, CREACT, FX ####Testing performed at [place] [address]Lymphocytes/100 WBC Auto (Bld)27.0 %Ldnjsc58.0-55.0[facility] on above:Performed By: #### ACBC, ESR, BUN, CREAT, CREACT, FX ####Testing performed at [address] [address]Jzpmyauvw Auto #/vol (Bld)0.4 X96RnbhrcUanhgKessler Institute for RehabilitationComment on above:Performed By: #### ACBC, ESR, BUN, CREAT, CREACT, FX ####Testing performed at [address] [address]Fqikysoud/100 WBC Auto (Bld)9.4 %Normal0.0-10.0[facility] on above:Performed By: #### ACBC, ESR, BUN, CREAT, CREACT, FX ####Testing performed at [place] [address]Neutrophils/100 WBC Auto (Bld) 58.7 %Mwhimr81.0-75.0[facility] Tinton Fallsment on above:Performed By: #### ACBC, ESR, BUN, CREAT, CREACT, FX ####Testing performed at [place] [address]Erythrocyte distribution width Auto Ratio (RBC)17.6 %High11.5-14.5ARegency Hospital Company on above:Performed By: #### ACBC, ESR, BUN, CREAT, CREACT, FX ####Testing performed at [place] [address]Hematocrit Auto Volume Fraction (Bld)26.2 %Low36.0-48.0[facility] on above:Performed By: #### ACBC, ESR, BUN, CREAT, CREACT, FX ####Testing performed at [place] [address]Hemoglobin mass conc (Bld)8.8 g/dLLow12.0-16.0[facility] on above:Performed By: #### ACBC, ESR, BUN, CREAT, CREACT, FX ####Testing performed at [place] [address]MCH Auto Entitic mass (RBC)29.3 ugDmqiqf72.0-35.0 [facility] on above:Performed By: #### ACBC, ESR, BUN, CREAT, CREACT, FX ####Testing performed at [place] [address]MCHC Auto mass conc (RBC)33.7 g/tORvatar32.0-37.0[facility] on above:Performed By: #### ACBC, ESR, BUN, CREAT, CREACT, FX ####Testing performed at [place] [address]MCV Auto Entitic volume (RBC)86.9 hHTdnauz44.0-100.0[facility] on above:Performed By: #### ACBC, ESR, BUN, CREAT, CREACT, FX ####Testing performed at [place] [id number] mean volume Auto Entitic volume (Bld)10.1 fLNormal 7.4-11.0[facility] on above:Performed By: #### ACBC, ESR, BUN, CREAT, CREACT, FX ####Testing performed at [place] [id number] Auto #/vol (Bld)130 /cmmNormal 130.0-400.0[facility] on above:Performed By: #### ACBC, ESR, BUN, CREAT, CREACT, FX ####Testing performed at [place] [id number] Auto #/vol (Bld)3.01 /cmmLow4.0-5.4[facility] on above:Performed By: #### ACBC, ESR, BUN, CREAT, CREACT, FX ####Testing performed at [place] [id number] Auto #/vol (Bld)4.2 /cmmNormal3.6-11.0[facility] on above:Performed By: #### ACBC, ESR, BUN, CREAT, CREACT, FX ####Testing performed at [place] [id number],SERUMon 03-16-1333Ttwbtntwft mass conc1.5 mg/dLHigh0.52-1.04 [facility] on above:Performed By: #### ACBC, ESR, BUN, CREAT, CREACT, FX ####Testing performed at [place] [id number]. GFR, Sxrhaipd46 ml/min/1.73sq.[facility] on above:Performed By: #### ACBC, ESR, BUN, CREAT, CREACT, FX ####Testing performed at [place] [id number]. GFR,Non Athmnicc22 ml/min/1.73sq.[facility] on above:Performed By: #### ACBC, ESR, BUN, CREAT, CREACT, FX ####Testing performed at [place] [address]016306GFR/1.73 sq M predicted among non-blacks MDRD vol rate/area (S/P/Bld)Average GFR for 30-39 years old = 109.[facility] Comment on above:Result Comment: Chronic Kidney disease, GFR = <60.Kidney failure, GFR = <15.The GFR estimate is not adjusted for extreme body surface area or acute process, nor has it been validated for women or ethnic groups other than and .Performed By: #### ACBC, ESR, BUN, CREAT, CREACT, FX ####Testing performed at [address] [address]CQZdt 38-72-5335QGU Velocity (Bld)49 mm/hHigh0-15 [facility] on above:Performed By: #### ACBC, ESR, BUN, CREAT, CREACT, FX ####Testing performed at [address] [address]OCA REQUESTon [id number] TOFAX TO DR HARTMAN AT [phone] AND TO [facility] AT [phone] Service UnitComment on above:Performed By: #### PHY, BUN, CREAT, FX ####Testing performed at [address] [address]UCE REQUEST on [id number] [id number] Cottage HospitalComdeckerville community hospital on above: Performed By: #### FX ####Testing performed at [place] [id number] UREA NITROGENon 86-40-2594Ivei nitrogen mass conc (Bld)21 mg/dLHigh7-20[facility] Hospital At MonmouthComment on above:Performed By: #### PHY, BUN, CREAT, FX ####Testing performed at [place] [id number],SERUMon 67-36-1247Qwqxexuvdd mass conc 1.4 mg/dLHigh0.52-1.04[facility] Hospital At MonmouthComment on above:Performed By: #### PHY, BUN, CREAT, FX ####Testing performed at [address] [address]KJZ. GFR, Kuemdziw66 ml/min/1.73sq.[facility] on above:Performed By: #### PHY, BUN, CREAT, FX ####Testing performed at [address] [address]IHN. GFR,Non Sviclpfo09 ml/min/1.73sq.[facility] Comment on above:Performed By: #### PHY, BUN, CREAT, FX ####Testing performed at [address] [address]SVB/1.73 sq M predicted among non-blacks MDRD vol rate/area (S/P/Bld)Average GFR for 30-39 years old = 109.[facility] on above:Result Comment: Chronic Kidney disease, GFR = <60.Kidney failure, GFR = <15.The GFR estimate is not adjusted for extreme body surface area or acute process, nor has it been validated for women or ethnic groups other than and . Performed By: #### PHY, BUN, CREAT, FX ####Testing performed at [address] [address]IHV REQUESTon [id number] TO [phone] [facility] HospitalComment on above:Performed By: #### PHY, BUN, CREAT, FX ####Testing performed at [address] [address]PNL NEW PHYSICIANon 60-31-9627VOZ NEW PHYSICIAN DEVAN UPGrace Cottage HospitalComment on above:Performed By: #### PHY, BUN, CREAT, FX ####Testing performed at [address] [address]HDVvj 93-44-9142Rbfb nitrogen mass conc24 mg/dLHigh6- [facility] Medical CenterComment on above:Performed By: #### [id number] ####OVIDIO [address] [place], [place] [address]Gjgpeoeaamql 08-27-2018 Creatinine mass conc1.6 mg/dLHigh0.5-1.1SChristus Dubuis HospitalComment on above:Performed By: #### [id number] ####OVIDIO [address]iz[address] [place], [place] [address]jBEVma 89-22-1969nLVL AA43 mL/min/1.73 h4VikaxiBitlgtpwhMercy Emergency DepartmentComment on above:Order Comment: Order added by Discern Expert.Performed By: #### [id number] ####OVIDIO AvalosEfcH[address] [place], [place] [address]VHP/1.73 sq M predicted among non-blacks MDRD vol rate/area (S/P/Bld)36 mL/min/1.73 m2 [facility]cy Emergency DepartmentComment on above:Order Comment: Order added by Discern Expert.Performed By: #### [id number] ####OVIDIO AvalosRqfEgnh[address] [place], [place] [address]Ooab,Tissueon 78-01-2457Vebh,TissueSpecimen Description .TISSUE EPIDURAL TISSUE Special Requests NOT [...] NOT REPORTED Trimethoprim/Sulfa <=10 SUSCEPTIBLE Vancomycin <=0.5 SUSCEPTIBLEDoctors HospitalComment on above:Performed By: #### LACWB #### [employer] [address] [place] [address] 43608 Cult,TissueSpecimen Description .SPINE .TISSUE T4 LAMINA [...] NOT REPORTED Trimethoprim/Sulfa <=10 SUSCEPTIBLE Vancomycin <=0.5 SUSCEPTIBLEDoctors HospitalComment on above:Performed By: #### LACWB #### [employer] [address] [place] [address] 43608 Basic Metabolic Profon 08-25-2018(cont.)Doctors HospitalComment on above:Result Comment: Average GFR for 30-39 years old: 107 mL/min/1.73sq m Chronic Kidney Disease: <60 mL/min/1.73sq m Kidney failure: <15 mL/min/1.73sq m eGFR calculated using average adult body mass. Additional eGFR calculator available at: http://www.[employer].com/multiple_crcl_2012.htmPerformed By: #### TERRYWB #### [facility] [employer] [address] [place] [address] 86040 Anion gap molar conc14 mmol/LNormal9-17[facility] Medical CenterComment on above:Performed By: #### LACWB #### [facility] [employer] [address] [place] [address] 96557 Calcium mass conc9.1 mg/dLNormal8.6-10.4[facility] Medical CenterComment on above:Performed By: #### LACWB #### [facility] [employer] [address] [place] [address] 52136 Chloride molar conc96 mmol/KKom20-825ZykwqWright-Patterson Medical CenterComment on above:Performed By: #### LACWB #### [facility] [employer] [address] [place] [address] 22563 CO2 molar conc23 mmol/ZYncqez83-36KciozWright-Patterson Medical Center Comment on above:Performed By: #### LACWB #### [facility] [employer] [address] [place] [address] 95627 Creatinine mass conc1.52 mg/dLHigh0.50-0.90[facility] Medical CenterComment on above:Performed By: #### LACWB #### [facility] [address] [place] [address] 81135 GFR, Amer46 mL/minLow>60[facility] Comment on above:Performed By: #### LACWB #### [facility] [employer] [address] [place] [address] 00559 GFR,non Amer38 mL/minLow>60[facility] Comment on above:Performed By: #### LACWB #### [facility] [employer] [address] [place] [address] 15900 Glucose mass conc95 mg/qANrjjco94-44AbtmqSan Luis Obispo General HospitalComment on above:Performed By: #### LEATHAB #### [facility] [employer] [address] [place] [address] 90160 Potassium molar conc4.5 mmol/LNormal3.7-5.3MSan Luis Obispo General HospitalComment on above:Performed By: #### LEATHAB #### [facility] [employer] [address] [place] [address] 68076 Sodium molar tqmc438 mmol/WVvq803-870CorxeWright-Patterson Medical CenterComment on above:Performed By: #### LACHELLE #### [facility] [employer] [address] [place] [address] 85145 Urea nitrogen mass conc43 mg/dLHigh6-20[facility] Medical CenterComment on above:Performed By: #### LACHELLE #### [facility] [employer] [address] [place] [address] 79491 BUN/CRE RatioNOT REPORTEDKansas City Va Medical Centeral9-20[facility] Comment on above:Performed By: #### LEATHAB #### [facility] [employer] [address] [place] [address] 40211 Staging:NOT REPORTEDNormalWright-Patterson Medical CenterComment on above:Performed By: #### LACHELLE #### [facility] [employer] [address] [place] [address] 60675 CBC with Diffon [id number]. Basophil0.07 k/uLNormal0.00-0.20 [facility] Medical CenterComment on above:Performed By: #### LEATHAB #### [facility] [employer] [address] [place] [address] 41080 Abs.Imm.Granulocyte0.08 k/uLNormal0.00-0.30[facility] Medical CenterComment on above:Performed By: #### LACWB #### [address] [address] Abs.Neutrophil (Seg)5.77 k/uLNormal1.50-8.10[facility] Medical CenterComment on above:Performed By: #### LACWB #### [address] [address] Basophils/100 WBC (Bld)1 %Normal0-2[facility]Sc[facility] Comment on above:Performed By: #### TERRYWB #### [address] [address] Eosinophils #/vol (Bld)0.12 10*3/uLNormal0.00-0.44[facility] Medical CenterComment on above:Performed By: #### TERRYWB #### [address] [address] Eosinophils/100 WBC (Bld)1 %Normal1-4[facility] Medical CenterComment on above:Performed By: #### TERRYWB #### [address] [address] Immature granulocytes #/vol (Bld)1 %Vmlc8EmnlqHenry Mayo Newhall Memorial HospitalComment on above:Performed By: #### LACWB #### [address] [address] Lymphocytes #/vol (Bld)1.83 10*3/uLNormal1.10-3.70[facility] Medical CenterComment on above:Performed By: #### LACWB #### [address] [address] Lymphocytes/100 WBC (Bld)21 %Ljk04-96ZxhosWright-Patterson Medical CenterComment on above:Performed By: #### LACWB #### [facility] [address] [place] [address] 24878 Monocytes #/vol (Bld)0.92 10*3/uLNormal0.10-1.20[facility] Medical CenterComment on above:Performed By: #### LACWB #### [facility] [employer] [address] [place] [address] 04862 Monocytes/100 WBC (Bld)11 %Normal3-12[facility] Medical CenterComment on above:Performed By: #### LACWB #### [facility] [employer] [address] [place] [address] 81274 Neutrophil (Seg)66 %Gawo43-64VhxfoWright-Patterson Medical Center Comment on above:Performed By: #### LACWB #### [facility] [employer] [address] [place] [address] 08281 Erythrocyte distribution width Ratio (RBC)14.6 %High11.8-14.4[facility] Medical CenterComment on above:Performed By: #### LACWB #### [facility] [employer] [address] [place] [address] 76199 Hematocrit Volume Fraction (Bld)32.6 %Low36.3-47.1MSan Luis Obispo General HospitalComment on above:Performed By: #### LACWB #### [facility] [employer] [address] [place] [address] 68457 Hemoglobin mass conc (Bld)10.0 g/dLLow11.9-15.1MSan Luis Obispo General HospitalComment on above:Performed By: #### LACWB #### [facility] [employer] [address] [place] [address] 15032 MCH Entitic mass (RBC)28.2 rpFgzniq96.2-33.5[facility] Medical CenterComment on above:Performed By: #### LACWB #### [employer] [address] [place] [address] 70974 MCHC mass conc (RBC)30.7 g/tCEzsbvy37.4-34.8[facility] Medical CenterComment on above:Performed By: #### LACWB #### [facility] [employer] [address] [place] [address] 35416 MCV Entitic volume (RBC)91.8 yBXmtwiy23.6-102.9[facility] Medical CenterComment on above:Performed By: #### LACWB #### [facility] [employer] [address] [place] [address] 20160 NRBC Automated0.0 per 100 WBCNormal0.0W[facility]terson Medical CenterComment on above:Performed By: #### LACWB #### [facility] [employer] [address] [place] [address] 36448 Platelet mean volume Entitic volume (Bld)10.4 fLNormal8.1-13.5[facility] Medical CenterComment on above:Performed By: #### LACWB #### [facility] [employer] [address] [place] [address] 33934 Platelets #/vol (Bld)292 10*3/uAXkygxl968-237WkwaoWright-Patterson Medical CenterComment on above:Performed By: #### LACWB #### [facility] [employer] [address] [place] [address] 67853 RBC #/vol (Bld)3.55 10*6/uLLow3.95-5.11[facility] Medical CenterComment on above:Performed By: #### LACWB #### [facility] [employer] [address] [place] [address] 90726 RBC morphology finding Nom (Bld)ANISOCYTOSIS PRESENTNormalWright-Patterson Medical CenterComment on above:Performed By: #### LACWB #### [address] [address] WBC #/vol (Bld)8.8 10*3/uLNormal3.5-11.3[facility] University HospitalComment on above:Performed By: #### LACWB #### [address] [address] Auto Diff PerformedNOT REPORTEDDoctors HospitalComment on above:Performed By: #### LACWB #### [address] [address] Platelets #/vol (Bld)NOT REPORTEDDoctors HospitalComment on above:Performed By: #### LACWB #### [address] [address] WBC MorphologyNOT REPORTEDDoctors Hospital Comment on above:Performed By: #### LACWB #### [address] [address] Fungi,Direct Examon [id number],Direct ExamSpecimen Description .SPINE .TISSUE T4 LAMINA Special Requests NOT REPORTED Direct Exam NO FUNGAL ELEMENTS SEEN Report Status FINAL 08/25/2018Doctors HospitalComment on above:Performed By: #### LACWB #### [address] [address] Magnesiumon 18-69-3722Xawdjsxha mass conc2.4 mg/dLNormal1.6-2.6 [facility] Medical CenterComment on above:Performed By: #### LACWB #### [address] [address] Procalcitoninon 00-46-1718Ybgwqqj mass conc0.13 ng/mLHigh<0.09W[facility]terson Medical CenterComment on above:Result Comment: Suspected Sepsis: [...] entered into the Change in Procalcitonin Calculator (www.tfgmdy-ors-aqccbmhfuc.Mowdo) to determine the patient's Mortality Risk PrognosisPerformed By: #### LACWB #### [employer] [address] [place] [address] [id number] Cult,Aerobe/Anaerobeon 12-68-2156Zqgv,Aerobe/AnaerobeSpecimen Description .SPINE Special Requests NOT REPORTED Direct Exam DUPLICATE ORDER SEE RESULTS FOR TISSUE CULTURE Culture NOT REPORTED Report Status FINAL 08/24/2018Doctors HospitalComment on above:Performed By: #### SPAG #### [employer] [address] [place] [address] [id number] Cult,Aerobe/AnaerobeSpecimen Description .SPINE Special Requests NOT REPORTED Direct Exam DUPLICATE ORDER SEE RESUULTS FOR TISSUE CULTURE Culture NOT REPORTED Report Status FINAL 08/24/2018Doctors HospitalComment on above:Performed By: #### SPAG #### [employer] [address] [place] [address] 98427 FLUORO FOR SURGICAL PROCEDURESon [id number] FOR SURGICAL PROCEDURESRadiology exam is complete. No Radiologist dictation. Please follow up with ordering provider. Final resultNoMercy HealthOPERATIVE REPORTon 08-24-2018 [facility]ATIVE REPORTOHIOHEALTH [facility] [address] [place] [address] OPERATIVE REPORT PATIENT NAME: CELINA GASPAR : 1980 [facility] REC NO: [id number] ROOM: 0431 ACCOUNT NO: [id number] ADMIT DATE: 08/15/2018 PROVIDER: Lita Mccray MD DATE OF PROCEDURE: 08/23/2018 SURGEON: Lita Mccray MD VENDING MACHINE COIN COLLECTOR: Eliel Larios DO PREOPERATIVE DIAGNOSIS: Epidural abscess, [...] satisfactory condition. LITA MCCRAY MD CAT/V_SSNCK_I Doc#: [id number] CC: Lita Mccray MDNoalWright-Patterson Medical CenterProcalcitoninon 15-53-7113[place] mass conc0.16 ng/mLHigh<0.09[facility] Comment on above:Result Comment: Suspected [...] entered into the Change in Procalcitonin Calculator (www.ghkdbe-auf-uzqugozhow.Mowdo) to determine the patient's Mortality Risk PrognosisPerformed By: #### DIEGO #### [facility] [address] [place] [address] 95746 Basic Metab w/rfx MGon 08-23-2018(cont.)NormalWright-Patterson Medical CenterComment on above:Result Comment: Average GFR for 30-39 years old: 107 mL/min/1.73sq m Chronic Kidney Disease: <60 mL/min/1.73sq m Kidney failure: <15 mL/min/1.73sq m eGFR calculated using average adult body mass. Additional eGFR calculator available at: http://www.[employer].Mowdo/multiple_crcl_2012.htmPerformed By: #### DIEGO #### [facility] [address] [place] [address] 36624 Anion gap molar conc14 mmol/LNormal9-17[facility] Medical CenterComment on above:Performed By: #### DIEGO #### [facility] [address] [place] [address] 48158 Calcium mass conc9.9 mg/dLNormal8.6-10.4[facility] Medical CenterComment on above:Performed By: #### JANNETHG #### [facility] [address] [place] [address] 90803 Chloride molar conc99 mmol/UNpjidf39-403RjurfWright-Patterson Medical CenterComment on above:Performed By: #### JANNETHG #### [facility] [address] [place] [address] 24366 CO2 molar conc26 mmol/HFhykyc31-68LnjjvWright-Patterson Medical Center Comment on above:Performed By: #### DIEGO #### [employer] [address] [place] [address] 99225 Creatinine mass conc1.42 mg/dLHigh0.50-0.90[facility] Medical CenterComment on above:Performed By: #### SPAG #### [employer] [address] [place] [address] 07440 GFR, Amer50 mL/minLow>60[facility] Comment on above:Performed By: #### SPAG #### [employer] [address] [place] [address] 66305 GFR,non Amer41 mL/minLow>60[facility] Comment on above:Performed By: #### SPAG #### [facility] [address] [place] [address] 70126 Glucose mass conc95 mg/dGUzzhve04-03HbfmwSan Luis Obispo General HospitalComment on above:Performed By: #### JANNETHG #### [employer] [address] [place] [address] 71193 Potassium molar conc4.9 mmol/LNormal3.7-5.3MSan Luis Obispo General HospitalComment on above:Result Comment: SPECIMEN SLIGHTLY HEMOLYZED, RESULTS MAY BE ADVERSELY AFFECTED.Performed By: #### SPAG #### [employer] [address] [place] [address] 91656 Sodium molar nbtb666 mmol/QYvrngy620-674HfpxvWright-Patterson Medical CenterComment on above:Performed By: #### SPAG #### [employer] [address] [place] [address] 11900 Urea nitrogen mass conc31 mg/dLHigh6-20[facility] Medical CenterComment on above:Performed By: #### SPAG #### [employer] [address] [place] [address] 54061 BUN/CRE RatioNOT REPORTEDNormal9-20[facility] Comment on above:Performed By: #### SPAG #### [address] [address] Staging:NOT REPORTEDNormalWright-Patterson Medical CenterComment on above:Performed By: #### DIEGO #### [address] [address] CBC with Diffon 36-35-2606Ebv. Basophil0.06 k/uLNormal0.00-0.20 [facility] Medical CenterComment on above:Performed By: #### DIEGO #### [address] [address]260 Abs.Imm.Granulocyte0.22 k/uLNormal0.00-0.30[facility] Medical CenterComment on above:Performed By: #### DIEGO #### [address] [address] Abs.Neutrophil (Seg)4.43 k/uLNormal1.50-8.10[facility] Medical CenterComment on above:Performed By: #### DIEGO #### [address] [address] Basophils/100 WBC (Bld)1 %Normal0-2MSan Luis Obispo General Hospital Comment on above:Performed By: #### DIEGO #### [address] [address] Eosinophils #/vol (Bld)0.15 10*3/uLNormal0.00-0.44[facility]terson Medical CenterComment on above:Performed By: #### JANNETHG #### [address] [address] Eosinophils/100 WBC (Bld)2 %Normal1-4[facility]terson Medical CenterComment on above:Performed By: #### DIEGO #### [address] [address] Erythrocyte distribution width Ratio (RBC)14.4 %Tdbyyl25.8-14.4 [facility] Medical CenterComment on above:Performed By: #### JANNETHG #### [facility] [employer] [address] [place] [address] 45533 Hematocrit Volume Fraction (Bld)33.2 %Low36.3-47.1MSan Luis Obispo General HospitalComment on above:Performed By: #### SPAG #### [facility] [employer] [address] [place] [address] 48040 Hemoglobin mass conc (Bld)10.4 g/dLLow11.9-15.1MSan Luis Obispo General HospitalComment on above:Performed By: #### JANNETHG #### [address] [address] Immature granulocytes #/vol (Bld)3 %Lyab6OabuvWright-Patterson Medical CenterComment on above:Performed By: #### JANNETHG #### [facility] [employer] [address] [place] [address] 21308 Lymphocytes #/vol (Bld)2.22 10*3/uLNormal1.10-3.70[facility] Medical CenterComment on above:Performed By: #### SPAG #### [facility] [employer] [address] [place] [address] 13279 Lymphocytes/100 WBC (Bld)29 %Dlfhwj40-21ArktmWright-Patterson Medical CenterComment on above:Performed By: #### SPAG #### [facility] [employer] [address] [place] [address] 97655 MCH Entitic mass (RBC)27.7 avWsyeqf82.2-33.5[facility] Medical CenterComment on above:Performed By: #### SPAG #### [facility] [employer] [address] [place] [address] 23024 MCHC mass conc (RBC)31.3 g/oLNoidfe39.4-34.8[facility] Medical CenterComment on above:Performed By: #### JANNETHG #### [employer] [address] [place] [address] 15333 MCV Entitic volume (RBC)88.3 aAWhxpwj55.6-102.9[facility] Medical CenterComment on above:Performed By: #### JANNETHG #### [employer] [address] [place] [address] 85113 Monocytes #/vol (Bld)0.63 10*3/uLNormal0.10-1.20[facility] Medical CenterComment on above:Performed By: #### DIEGO #### [employer] [address] [place] [address] 37995 Monocytes/100 WBC (Bld)8 %Normal3-12[facility] Medical CenterComment on above:Performed By: #### DIEGO #### [employer] [address] [place] [address] 96479 Neutrophil (Seg)57 %Ysqhfh83-57XkcahWright-Patterson Medical Center Comment on above:Performed By: #### JANNETHG #### [employer] [address] [place] [address] 84987 NRBC Automated0.0 per 100 WBCNormal0.0[facility] Medical CenterComment on above:Performed By: #### SPAG #### [employer] [address] [place] [address] 52718 Platelets #/vol (Bld)See Reflexed IPF MotctqFmbabu576-576WmbflWright-Patterson Medical CenterComment on above:Performed By: #### SPAG #### [employer] [address] [place] [address] 23733 RBC #/vol (Bld)3.76 10*6/uLLow3.95-5.11[facility] Medical CenterComment on above:Performed By: #### DIEGO #### [facility] [employer] [address] [place] [address] 10491 WBC #/vol (Bld)7.7 10*3/uLNormal3.5-11.3[facility] University HospitalComment on above:Performed By: #### DIEGO #### [facility] [employer] [address] [place] [address] 42990 Auto Diff PerformedNOT REPORTEDDoctors HospitalComment on above:Performed By: #### DIEGO #### [facility] [employer] [address] [place] [address] 73084 Platelet mean volume Entitic volume (Bld)NOT REPORTEDKansas City Va Medical Centeral8.1-13.5 [facility] CenterComment on above:Performed By: #### DIEGO #### [facility] [employer] [address] [place] [address] 90994 Platelets #/vol (Bld)NOT REPORTEDNoMercy HealthComment on above:Performed By: #### DIEGO #### [facility] [employer] [address] [place] [address] 10713 RBC morphology finding Nom (Bld)NOT REPORTEDDoctors HospitalComment on above:Performed By: #### DIEGO #### [facility] [employer] [address] [place] [address] 88199 WBC MorphologyNOT REPORTEDDoctors Hospital Comment on above:Performed By: #### DIEGO #### [facility] [employer] [address] [place] [address] 57023 Cult,Bloodon [id number],BloodSpecimen Description .BLOOD Special Requests L AC 6ML Culture NO GROWTH 6 DAYS Report Status FINAL 08/23/2018Doctors HospitalComment on above:Performed By: #### DIEGO #### [address] [address] Cult,BloodSpecimen Description .BLOOD Special Requests L FOREARM 6ML Culture NO GROWTH 6 DAYS Report Status FINAL 08/23/2018NormalWright-Patterson Medical CenterComment on above:Performed By: #### SPAG #### [address] [address] PLT, Immature Fract.on [id number], Fluoresc.113 k/uLLow 138-453MerHenry Mayo Newhall Memorial HospitalComment on above:Performed By: #### SPAG #### [address] [address] PLT, Immature Fract.3.7 %Normal1.1-10.3Mercy University HospitalComment on above:Performed By: #### SPAG #### [address] [address] CBC with Diffon [id number]. Basophil0.00 k/uLNormal0.0-0.2MSan Luis Obispo General HospitalComment on above:Performed By: #### ULAG #### [address] [address] Abs.Imm.Granulocyte0.30 k/uLNormal0.00-0.30W[facility]-Patterson Medical CenterComment on above:Performed By: #### ULAG #### [address] [address] Abs.Neutrophil (Seg)4.87 k/uLNormal1.8-7.7W[facility]-Patterson Medical CenterComment on above:Performed By: #### ULAG #### [address] [address] Basophils/100 WBC (Bld)0 %Normal0-2[facility]ercSc[facility] Comment on above:Performed By: #### ULAG #### [facility] [employer] [address] [place] [address] 68633 Eosinophils #/vol (Bld)0.00 10*3/uLNormal0.0-0.4W[facility]-Patterson Medical CenterComment on above:Performed By: #### ULAG #### [facility] [employer] [address] [place] [address] 00921 Eosinophils/100 WBC (Bld)0 %Low1-4[facility] Comment on above:Performed By: #### ULAG #### [facility] [employer] [address] [place] [address] 51093 Immature granulocytes #/vol (Bld)4 %Efhx2TtapnWright-Patterson Medical CenterComment on above:Performed By: #### ULAG #### [facility] [employer] [address] [place] [address] 43407 Lymphocytes #/vol (Bld)1.88 10*3/uLNormal1.0-4.8W[facility]-Patterson Medical CenterComment on above:Performed By: #### ULAG #### [facility] [employer] [address] [place] [address] 50306 Lymphocytes/100 WBC (Bld)25 %Blmxki54-15EgofbWright-Patterson Medical CenterComment on above:Performed By: #### ULAG #### [facility] [employer] [address] [place] [address] 06977 Monocytes #/vol (Bld)0.45 10*3/uLNormal0.1-0.8W[facility]-Patterson Medical CenterComment on above:Performed By: #### ULAG #### [facility] [employer] [address] [place] [address] 41769 Monocytes/100 WBC (Bld)6 %Normal1-7[facility] Comment on above:Performed By: #### ULAG #### [facility] [employer] [address] [place] [address] 18154 Morphology Interp Rehan (Bld)ANISOCYTOSIS PRESENTNormalWright-Patterson Medical CenterComment on above:Performed By: #### ULAG #### [facility] [employer] [address] [place] [address] 83755 Neutrophil (Seg)65 %Yyplwr44-57GwlsxWright-Patterson Medical Center Comment on above:Performed By: #### ULAG #### [facility] [employer] [address] [place] [address] 08574 Erythrocyte distribution width Ratio (RBC)14.5 %High11.8-14.4W[facility]-Patterson Medical CenterComment on above:Performed By: #### ULAG #### [facility] [employer] [address] [place] [address] 54489 Hematocrit Volume Fraction (Bld)38.1 %Xmvque93.3-47.1MSan Luis Obispo General HospitalComment on above:Performed By: #### ULAG #### [facility] [employer] [address] [place] [address] 49284 Hemoglobin mass conc (Bld)11.5 g/dLLow11.9-15.1MSan Luis Obispo General HospitalComment on above:Performed By: #### ULAG #### [facility] [employer] [address] [place] [address] 19206 MCH Entitic mass (RBC)28.3 dvOgkyts91.2-33.5W[facility]-Patterson Medical CenterComment on above:Performed By: #### ULAG #### [facility] [employer] [address] [place] [address] 19556 MCHC mass conc (RBC)30.2 g/gVTsiywa28.4-34.8[facility]terson Medical CenterComment on above:Performed By: #### ULAG #### [facility] [employer] [address] [place] [address] 23273 MCV Entitic volume (RBC)93.6 iWFwwyua04.6-102.9W[facility]-Patterson Medical CenterComment on above:Performed By: #### ULAG #### [facility] [address] [place] [address] 55179 NRBC Automated0.0 per 100 WBCNormal0.0W[facility]-Patterson Medical CenterComment on above:Performed By: #### ULAG #### [facility] [employer] [address] [place] [address] 62777 Platelet mean volume Entitic volume (Bld)10.7 fLNormal8.1-13.5W[facility]-Patterson Medical CenterComment on above:Performed By: #### ULAG #### [address] [address] Platelets #/vol (Bld)265 10*3/yHYxaowi890-187EvrwbWright-Patterson Medical CenterComment on above:Performed By: #### ULAG #### [facility] [employer] [address] [place] [address] 11211 RBC #/vol (Bld)4.07 10*6/uLNormal3.95-5.11W[facility]-Patterson Medical CenterComment on above:Performed By: #### ULAG #### [address] [address] WBC #/vol (Bld)7.5 10*3/uLNormal3.5-11.3MSan Luis Obispo General HospitalComment on above:Performed By: #### ULAG #### [facility] [employer] [address] [place] [address] 23244 Auto Diff PerformedNOT REPORTEDKansas City Va Medical CenteralWright-Patterson Medical CenterComment on above:Performed By: #### ULAG #### [address] [address] Platelets #/vol (Bld)NOT REPORTEDNoMercy HealthComment on above:Performed By: #### ULAG #### [facility] [address] [place] [address] 50471 RBC morphology finding Nom (Bld)NOT REPORTEDNoMercy HealthComment on above:Performed By: #### ULAG #### [facility] [employer] [address] [place] [address] 60782 WBC MorphologyNOT REPORTEDNoMercy Health Comment on above:Performed By: #### ULAG #### [facility] [employer] [address] [place] [address] 27497 Comp Metabolic Pr/rfx MGon 71-32-3438Dxdlvtu mass conc3.2 g/dLLow 3.5-5.2Mercy University HospitalComment on above:Performed By: #### ULAG #### [facility] [employer] [address] [place] [address] 97357 Albumin/Globulin mass ratio0.8 {ratio}Low1.0-2.5W[facility]-Patterson Medical CenterComment on above:Performed By: #### ULAG #### [facility] [address] [place] [address] 41512 Alkaline Phos90 U/UIfyzaf69-877TsjmsWright-Patterson Medical Center Comment on above:Performed By: #### ULAG #### [employer] [address] [place] [address] 33547 ALT enzyme act/vol18 U/LNormal5-33[facility] Comment on above:Performed By: #### ULAG #### [facility] [employer] [address] [place] [address] 58483 AST enzyme act/vol16 U/LNormal<32[facility] Comment on above:Performed By: #### ULAG #### [facility] [address] [place] [address] 42498 Protein mass conc7.0 g/dLNormal6.4-8.3MSan Luis Obispo General HospitalComment on above:Performed By: #### ULAG #### [employer] [facility] [place] [address] (cont.)NormalWright-Patterson Medical CenterComment on above: Result Comment: Average GFR for 30-39 years old: 107 mL/min/1.73sq m Chronic Kidney Disease: <60 mL/min/1.73sq m Kidney failure: <15 mL/min/1.73sq m eGFR calculated using average adult body mass. Additional eGFR calculator available at: http://www.Olocode/multiple_crcl_2012.htmPerformed By: #### ULAG #### [employer] [address] [place] [address] 09936 Anion gap molar conc15 mmol/LNormal9-17[facility]Patterson Medical CenterComment on above:Performed By: #### ULAG #### [employer] [address] [place] [address] 73133 Bilirubin Ql (U)0.34 mg/dLNormal0.3-1.2MSan Luis Obispo General HospitalComment on above:Performed By: #### ULAG #### [employer] [address] [place] [address] 52604 Calcium mass conc9.7 mg/dLNormal8.6-10.4[facility]Pat[facility] Medical CenterComment on above:Performed By: #### ULAG #### [employer] [address] [place] [address] 82094 Chloride molar mfak689 mmol/NJswktj36-532PegngWright-Patterson Medical CenterComment on above:Performed By: #### ULAG #### [employer] [address] [place] [address] 37990 CO2 molar conc24 mmol/RAgqiih19-97EnfjnWright-Patterson Medical Center Comment on above:Performed By: #### ULAG #### [facility] [address] [place] [address] Creatinine mass conc1.02 mg/dLHigh0.50-0.90W[facility]-Patterson Medical CenterComment on above:Performed By: #### ULAG #### [facility] [address] [place] [address] 49071 GFR, Amer>60Normal>60W[facility]-Patterson Medical CenterComment on above:Performed By: #### ULAG #### [facility] [employer] [address] [place] [address] 05972 GFR,non Amer>60Normal>60[facility] Comment on above:Performed By: #### ULAG #### [facility] [employer] [address] [place] [address] 57431 Glucose mass kmad768 mg/nHZuyr81-31GxgyiSan Luis Obispo General Hospital Comment on above:Performed By: #### ULAG #### [facility] [employer] [address] [place] [address] 75479 Potassium molar conc4.5 mmol/LNormal3.7-5.3MSan Luis Obispo General HospitalComment on above:Performed By: #### ULAG #### [facility] [address] [place] [address] 96198 Sodium molar comg298 mmol/RDrsgsa151-414VymoaWright-Patterson Medical CenterComment on above:Performed By: #### ULAG #### [facility] [address] [place] [address] 46358 Urea nitrogen mass conc19 mg/dLNormal6-20[facility] Medical CenterComment on above:Performed By: #### ULAG #### [facility] [employer] [address] [place] [address] 81911 BUN/CRE RatioNOT REPORTEDNormal9-20[facility] Comment on above:Performed By: #### ULAG #### [facility] [address] [place] [address] 17950 Staging:NOT REPORTEDNoMercy HealthComment on above:Performed By: #### ULAG #### [facility] [employer] [address] [place] [address] 49250 Magnesiumon 28-58-2009Hdkuxrfmo mass conc2.4 mg/dLNormal1.6-2.6 [facility] Medical CenterComment on above:Performed By: #### ULAG #### [facility] [employer] [address] [place] [address] 10008 Vancomycin Troughon 32-00-5730Ydgzuirqos Jzpqun78.2 ug/mLCritically high10.0-20.0W[facility]-Patterson Medical CenterComment on above:Result Comment: Higher trough serum vancomycin concentrations of 15-20 ug/mL are recommended for complicated infections such as bacteremia, endocarditis, osteomyelitis, meningitis, and hospital acquired pneumonia. ADDED ONPerformed By: #### ULAG #### [facility] [employer] [address] [place] [address] 87369 Date last dose,NOT REPORTEDNoMercy Health Comment on above:Performed By: #### ULAG #### [facility] [employer] [address] [place] [address] 18303 Dose amount,NOT REPORTEDNormalWright-Patterson Medical Center Comment on above:Performed By: #### ULAG #### [employer] [address] [place] [address] 66005 Time last dose,NOT REPORTEDNoMercy Health Comment on above:Performed By: #### ULAG #### [facility] [address] [place] [address] 38675 CBC with Diffon [id number]. Basophil0.08 k/uLNormal0.00-0.20 [facility] Medical CenterComment on above:Performed By: #### ULAG #### [address] [address] Abs.Imm.Granulocyte0.50 k/uLHigh0.00-0.30W[facility]-Patterson Medical CenterComment on above:Performed By: #### ULAG #### [address] [address] Abs.Neutrophil (Seg)4.73 k/uLNormal1.50-8.10W[facility] Medical CenterComment on above:Performed By: #### ULAG #### [address] [address] Basophils/100 WBC (Bld)1 %Normal0-2MSan Luis Obispo General Hospital Comment on above:Performed By: #### ULAG #### [address] [address] Eosinophils #/vol (Bld)0.17 10*3/uLNormal0.00-0.44W[facility]-Patterson Medical CenterComment on above:Performed By: #### ULAG #### [address] [address] Eosinophils/100 WBC (Bld)2 %Normal1-4W[facility]-Pat[facility] Medical CenterComment on above:Performed By: #### ULAG #### [address] [address] Immature granulocytes #/vol (Bld)6 %Fnkp0HmjcaWright-Patterson Medical CenterComment on above:Performed By: #### ULAG #### [address] [address] Lymphocytes #/vol (Bld)2.24 10*3/uLNormal1.10-3.70W[facility]-Patterson Medical CenterComment on above:Performed By: #### ULAG #### [facility] [employer] [address] [place] [address] 86923 Lymphocytes/100 WBC (Bld)27 %Nditgh42-96NtirnWright-Patterson Medical CenterComment on above:Performed By: #### ULAG #### [facility] [employer] [address] [place] [address] 78418 Monocytes #/vol (Bld)0.58 10*3/uLNormal0.10-1.20[facility] Medical CenterComment on above:Performed By: #### ULAG #### [facility] [employer] [address] [place] [address] 19908 Monocytes/100 WBC (Bld)7 %Normal3-12W[facility]-Patterson Medical CenterComment on above:Performed By: #### ULAG #### [facility] [employer] [address] [place] [address] 22440 Morphology Interp Rehan (Bld)ANISOCYTOSIS PRESENTNormalWright-Patterson Medical CenterComment on above:Performed By: #### ULAG #### [facility] [employer] [address] [place] [address] 23748 Neutrophil (Seg)57 %Zugcgy06-33AvmjwWright-Patterson Medical Center Comment on above:Performed By: #### ULAG #### [facility] [employer] [address] [place] [address] 46239 Erythrocyte distribution width Ratio (RBC)14.6 %High11.8-14.4[facility]-Patterson Medical CenterComment on above:Performed By: #### ULAG #### [facility] [employer] [address] [place] [address] 41224 Hematocrit Volume Fraction (Bld)38.5 %Slhhzx75.3-47.1MSan Luis Obispo General HospitalComment on above:Performed By: #### ULAG #### [facility] [address] [place] [address] 48268 Hemoglobin mass conc (Bld)11.5 g/dLLow11.9-15.1MSan Luis Obispo General HospitalComment on above:Performed By: #### ULAG #### [facility] [employer] [address] [place] [address] 40250 MCH Entitic mass (RBC)28.2 lwRhoxnc86.2-33.5[facility] Medical CenterComment on above:Performed By: #### ULAG #### [address] 26764 MCHC mass conc (RBC)29.9 g/zQJbzhmi72.4-34.8[facility] Medical CenterComment on above:Performed By: #### ULAG #### [address] 89552 MCV Entitic volume (RBC)94.4 fLHjgvwz36.6-102.9[facility]terson Medical CenterComment on above:Performed By: #### ULAG #### [address] [address] NRBC Automated0.0 per 100 WBCNormal0.0W[facility]terson Medical CenterComment on above:Performed By: #### ULAG #### [address] 18060 Platelet mean volume Entitic volume (Bld)10.5 fLNormal8.1-13.5[facility]-Pat[facility] Medical CenterComment on above:Performed By: #### ULAG #### [address] [address] Platelets #/vol (Bld)264 10*3/vORhfqiz534-782NvzhwWright-Patterson Medical CenterComment on above:Performed By: #### ULAG #### [facility] [employer] [address] [place] [address] 58191 RBC #/vol (Bld)4.08 10*6/uLNormal3.95-5.11[facility] Medical CenterComment on above:Performed By: #### ULAG #### [employer] [address] [place] [address] 47335 WBC #/vol (Bld)8.3 10*3/uLNormal3.5-11.3[facility] HospitalComment on above:Performed By: #### ULAG #### [employer] [address] [place] [address] 46826 Auto Diff PerformedNOT REPORTEDDoctors HospitalComment on above:Performed By: #### ULAG #### [employer] [address] [place] [address] 17233 Platelets #/vol (Bld)NOT REPORTEDDoctors HospitalComment on above:Performed By: #### ULAG #### [employer] [address] [place] [address] 36892 RBC morphology finding Nom (Bld)NOT REPORTEDNoMercy HealthComment on above:Performed By: #### ULAG #### [employer] [address] [place] [address] 29336 WBC MorphologyNOT REPORTEDDoctors Hospital Comment on above:Performed By: #### ULAG #### [employer] [address] [place] [address] 53467 Comp Metabolic Pr/rfx MGon 08-21-2018(cont.)Doctors HospitalComment on above:Result Comment: Average GFR for 30-39 years old: 107 mL/min/1.73sq m Chronic Kidney Disease: <60 mL/min/1.73sq m Kidney failure: <15 mL/min/1.73sq m eGFR calculated using average adult body mass. Additional eGFR calculator available at: http://www.globalrp.com/multiple_crcl_2012.htmPerformed By: #### ULAG #### [facility] [address] [place] [address] 14540 Albumin mass conc2.9 g/dLLow3.5-5.2MSan Luis Obispo General Hospital Comment on above:Performed By: #### ULAG #### [facility] [employer] [address] [place] [address] 87674 Albumin/Globulin mass ratio0.7 {ratio}Low1.0-2.5[facility] Medical CenterComment on above:Performed By: #### ULAG #### [facility] [employer] [address] [place] [address] 07166 Alkaline Phos98 U/KLwjuhm80-515ZqfgnWright-Patterson Medical Center Comment on above:Performed By: #### ULAG #### [facility] [employer] [address] [place] [address] 85348 ALT enzyme act/vol19 U/LNormal5-33[facility] Comment on above:Performed By: #### ULAG #### [facility] [employer] [address] [place] [address] 64669 Anion gap molar conc14 mmol/LNormal9-17[facility] Medical CenterComment on above:Performed By: #### ULAG #### [facility] [employer] [address] [place] [address] 04010 AST enzyme act/vol21 U/LNormal<32[facility] Comment on above:Performed By: #### ULAG #### [facility] [employer] [address] [place] [address] 30098 Bilirubin Ql (U)0.32 mg/dLNormal0.3-1.2MSan Luis Obispo General HospitalComment on above:Performed By: #### ULAG #### [facility] [employer] [address] [place] [address] 88307 Calcium mass conc9.1 mg/dLNormal8.6-10.4[facility] Medical CenterComment on above:Performed By: #### ULAG #### [address] 365[address] Chloride molar nnsr769 mmol/GXnornh82-700BxfkyWright-Patterson Medical CenterComment on above:Performed By: #### ULAG #### [address] 19900 CO2 molar conc23 mmol/GJqqqqw65-96CwxyhWright-Patterson Medical Center Comment on above:Performed By: #### ULAG #### [address] 98540 Creatinine mass conc0.90 mg/dLNormal0.50-0.90[facility] Medical CenterComment on above:Performed By: #### ULAG #### [address] 83325 GFR, Amer>60Normal>60[facility] Medical CenterComment on above:Performed By: #### ULAG #### [address] 7[address] GFR,non Amer>60Normal>60[facility] Comment on above:Performed By: #### ULAG #### [facility] [employer] [address] [place] [address] 81448 Glucose mass klip238 mg/rLXvds86-90QvfzlSan Luis Obispo General Hospital Comment on above:Performed By: #### ULAG #### [address] 23916 Potassium molar conc4.6 mmol/LNormal3.7-5.3MSan Luis Obispo General HospitalComment on above:Performed By: #### ULAG #### [facility] [employer] [address] [place] [address] 69730 Protein mass conc6.9 g/dLNormal6.4-8.3[facility] HospitalComment on above:Performed By: #### ULAG #### [employer] [address] [place] [address] 92630 Sodium molar yqit969 mmol/ZDfacue495-251FhbhtWright-Patterson Medical CenterComment on above:Performed By: #### ULAG #### [employer] [address] [place] [address] 00123 Urea nitrogen mass conc17 mg/dLNormal6-20[facility] Medical CenterComment on above:Performed By: #### ULAG #### [employer] [address] [place] [address] 60131 BUN/CRE RatioNOT REPORTEDLutcher9-20[facility] Comment on above:Performed By: #### ULAG #### [employer] [address] [place] [address] 65604 Staging:NOT REPORTEDNoMercy HealthComment on above:Performed By: #### ULAG #### [employer] [address] [place] [address] 14247 Cult,Bloodon [id number],BloodSpecimen Description .BLOOD Special Requests L AC 20ML Culture POSITIVE Blood Culture CALLED TO MIS Medina [phone] [id number] DIRECT GRAM STAIN FROM BOTTLE: GRAM POSITIVE COCCI IN CLUSTERS METHICILLIN RESISTANT STAPHYLOCOCCUS AUREUS For susceptibility, refer to previous culture. Report Status FINAL 08/21/2018Doctors HospitalComment on above:Performed By: #### ULAG #### [employer] [address] [place] [address] 50797 MRI FOOT LEFT W WO CONTRASTon [id number] FOOT LEFT W WO CONTRAST EXAMINATION: MRI [...] by: Murali Goff MD 08/21/18 Final resultNormalMercy University HospitalMagnesiumon 08-21-2018 Magnesium mass conc2.4 mg/dLNormal1.6-2.6Mer[facility] HospitalComment on above:Performed By: #### ULAG #### [facility] [employer] [address] [place] [address] Procalcitoninon 35-40-6196Bwtgxih mass conc0.27 ng/mLHigh<0.09Mer[facility] University HospitalComment on above:Result Comment: Suspected Sepsis: 0.09-0.49 [...] entered into the Change in Procalcitonin Calculator (www.fpopvc-wyy-yivoibmmeh.com) to determine the patient's Mortality Risk PrognosisPerformed By: #### SEBAG #### [facility] [employer] [address] [place] [address] [phone]-Fpjvfwqy Proteinon 79-00-3891ZIC mass conc50.4 mg/LHigh0.0-5.0 [facility] Medical CenterComment on above:Performed By: #### LALO, TROPI, PRCAL, MYCM #### [employer] [address] [place] [address] CBC with Diffon [id number]. Basophil0.08 k/uLNormal0.0-0.2Mtrihealth [facility] hospitaly University HospitalComment on above:Performed By: #### LALO, TROPI, PRCAL, MYCM #### [employer] [address] [place], [place] [id number] Abs.Imm.Granulocyte0.42 k/uLHigh0.00-0.30MerHenry Mayo Newhall Memorial HospitalComment on above:Performed By: #### LALO, DAMIENI, PRCAL, MYCM #### [address] [address] Abs.Neutrophil (Seg)4.57 k/uLNormal1.8-7.7W[facility] Medical CenterComment on above:Performed By: #### LALO, TROPI, PRCAL, MYCM #### [address] [address] Basophils/100 WBC (Bld)1 %Normal0-2MSan Luis Obispo General Hospital Comment on above:Performed By: #### LALO, TROPI, PRCAL, MYCM #### [place] [address] Eosinophils #/vol (Bld)0.25 10*3/uLNormal0.0-0.4[facility] Medical CenterComment on above:Performed By: #### LALO, DAMIENI, PRCAL, MYCM #### [address] [address] Eosinophils/100 WBC (Bld)3 %Normal1-4W[facility]terson Medical CenterComment on above:Performed By: #### LALO, TROPI, PRCAL, MYCM #### [address] [address] Immature granulocytes #/vol (Bld)5 %Slzu1MwzceHenry Mayo Newhall Memorial HospitalComment on above:Performed By: #### LALO, TROPI, PRCAL, MYCM #### [address] [address] [address] Lymphocytes #/vol (Bld)2.32 10*3/uLNormal1.0-4.8W[facility]-Patterson Medical CenterComment on above:Performed By: #### LACDS, TROPI, PRCAL, MYCM #### [facility] [employer] [address] [place] [address] 49862 Lymphocytes/100 WBC (Bld)28 %Rcfqop40-37OfqkeWright-Patterson Medical CenterComment on above:Performed By: #### LACDS, TROPI, PRCAL, MYCM #### [facility] [employer] [address] [place] [address] 61565 Monocytes #/vol (Bld)0.66 10*3/uLNormal0.1-0.8[facility] Medical CenterComment on above:Performed By: #### LACDS, TROPI, PRCAL, MYCM #### [facility] [address] [place] [address] 34536 Monocytes/100 WBC (Bld)8 %High1-7[facility] Comment on above:Performed By: #### LACDS, TROPI, PRCAL, MYCM #### [employer] [address] [place] [address] 87821 Morphology Interp Rehan (Bld)ANISOCYTOSIS PRESENTNormalWright-Patterson Medical CenterComment on above:Performed By: #### LACDS, TROPI, PRCAL, MYCM #### [facility] [address] [place] [address] 31186 Neutrophil (Seg)55 %Xzsgxn52-60XqeusWright-Patterson Medical Center Comment on above:Performed By: #### LACDS, TROPI, PRCAL, MYCM #### [employer] [address] [place] [address] 23877 Erythrocyte distribution width Ratio (RBC)14.6 %High11.8-14.4W[facility]Patterson Medical CenterComment on above:Performed By: #### LACDS, TROPI, PRCAL, MYCM #### [facility] [employer] [address] [place] [address] 17343 Hematocrit Volume Fraction (Bld)33.5 %Low36.3-47.1MSan Luis Obispo General HospitalComment on above:Performed By: #### LALO, TROPI, PRCAL, MYCM #### [facility] [employer] [address] [place] [address] 62085 Hemoglobin mass conc (Bld)10.2 g/dLLow11.9-15.1MSan Luis Obispo General HospitalComment on above:Performed By: #### LACREY, TROPI, PRCAL, MYCM #### [facility] [employer] [address] [place] [address] 69945 MCH Entitic mass (RBC)27.9 kkKpvhdo76.2-33.5[facility]Pat[facility] Medical CenterComment on above:Performed By: #### LALO, TROPI, PRCAL, MYCM #### [facility] [employer] [address] [place] [address] 40892 MCHC mass conc (RBC)30.4 g/xREdkeft28.4-34.8[facility] Medical CenterComment on above:Performed By: #### LALO, TROPI, PRCAL, MYCM #### [facility] [employer] [address] [place] [address] 17769 MCV Entitic volume (RBC)91.5 cYWsviur91.6-102.9W[facility]Patterson Medical CenterComment on above:Performed By: #### LACREY, TROPI, PRCAL, MYCM #### [facility] [employer] [address] [place] [address] 18017 NRBC Automated0.0 per 100 WBCNormal0.0W[facility]-Patterson Medical CenterComment on above:Performed By: #### LACREY, TROPI, PRCAL, MYCM #### [facility] [employer] [address] [place] [address] 49778 Platelet mean volume Entitic volume (Bld)11.0 fLNormal8.1-13.5W[facility]-Patterson Medical CenterComment on above:Performed By: #### LACDS, TROPI, PRCAL, MYCM #### [employer] [address] [place] [address] 52311 Platelets #/vol (Bld)211 10*3/pPXuuinx572-261FlqsgWright-Patterson Medical CenterComment on above:Performed By: #### LACDS, TROPI, PRCAL, MYCM #### [facility] [employer] [address] [place] [address] 68060 RBC #/vol (Bld)3.66 10*6/uLLow3.95-5.11W[facility]Pat[facility] Medical CenterComment on above:Performed By: #### LACDS, TROPI, PRCAL, MYCM #### [employer] [address] [place] [address] 38082 WBC #/vol (Bld)8.3 10*3/uLNormal3.5-11.3MSan Luis Obispo General HospitalComment on above:Performed By: #### LACDS, TROPI, PRCAL, MYCM #### [employer] [address] [place] [address] 84721 Auto Diff PerformedNOT REPORTEDNoalWright-Patterson Medical CenterComment on above:Performed By: #### LACDS, TROPI, PRCAL, MYCM #### [employer] [address] [place] [address] 43489 Platelets #/vol (Bld)NOT REPORTEDNoMercy HealthComment on above:Performed By: #### LACDS, TROPI, PRCAL, MYCM #### [employer] [address] [place] [address] 72712 RBC morphology finding Nom (Bld)NOT REPORTEDNormalWright-Patterson Medical CenterComment on above:Performed By: #### LACDS, TROPI, PRCAL, MYCM #### [employer] [address] [place] [address] 48062 WBC MorphologyNOT REPORTEDNormalWright-Patterson Medical Center Comment on above:Performed By: #### GRACE MAY PRCAL, MYCM #### [place] [address] [place] [address] 89220 Comp Metabolic Pr/rfx MGon 08-20-2018(cont.)NormalWright-Patterson Medical CenterComment on above:Result Comment: Average GFR for 30-39 years old: 107 mL/min/1.73sq m Chronic Kidney Disease: <60 mL/min/1.73sq m Kidney failure: <15 mL/min/1.73sq m eGFR calculated using average adult body mass. Additional eGFR calculator available at: http://www.Olocode/multiple_crcl_2012.htmPerformed By: #### GRACE MAY PRCAL, MYCM #### [facility] [address] [place] [address] 31350 Albumin mass conc3.1 g/dLLow3.5-5.2MSan Luis Obispo General Hospital Comment on above:Performed By: #### GRACE MYA, PRCAL, MYCM #### [employer] [address] [place] [address] 40937 Albumin/Globulin mass ratio0.9 {ratio}Low1.0-2.5W[facility]-Patterson Medical CenterComment on above:Performed By: #### DAMIEN MAYI, PRCAL, MYCM #### [employer] [address] [place] [address] 43553 Alkaline Phos83 U/MHmxnpl43-923AvbtqWright-Patterson Medical Center Comment on above:Performed By: #### GRACE MAY, PRCAL, MYCM #### [employer] [address] [place] [address] 65852 ALT enzyme act/vol17 U/LNormal5-33[facility] Comment on above:Performed By: #### GRACE MAY, PRCAL, MYCM #### [facility] [employer] [facility] [place] [address] Anion gap molar conc11 mmol/LNormal9-17[facility] Medical CenterComment on above:Performed By: #### LACDS, TROPI, PRCAL, MYCM #### [facility] [employer] [address] [place] [address] 51829 AST enzyme act/vol18 U/LNormal<32[facility] Comment on above:Performed By: #### LACDS, TROPI, PRCAL, MYCM #### [facility] [employer] [address] [place] [address] 60269 Bilirubin Ql (U)0.29 mg/dLLow0.3-1.2MSan Luis Obispo General HospitalComment on above:Performed By: #### LACDS, TROPI, PRCAL, MYCM #### [facility] [employer] [address] [place] [address] 21126 Calcium mass conc9.0 mg/dLNormal8.6-10.4[facility] Medical CenterComment on above:Performed By: #### LACDS, TROPI, PRCAL, MYCM #### [facility] [employer] [address] [place] [address] 38996 Chloride molar yyvh913 mmol/QCaeanx05-031CdbxaWright-Patterson Medical CenterComment on above:Performed By: #### LACDS, TROPI, PRCAL, MYCM #### [facility] [employer] [address] [place] [address] 12573 CO2 molar conc27 mmol/QNcmbsq34-55KbfvyWright-Patterson Medical Center Comment on above:Performed By: #### LACDS, TROPI, PRCAL, MYCM #### [facility] [employer] [address] [place] [address] 25568 Creatinine mass conc0.97 mg/dLHigh0.50-0.90W[facility] Medical CenterComment on above:Performed By: #### LACDS, TROPI, PRCAL, MYCM #### [facility] [address] [place] [address] 84603 GFR, Amer>60Normal>60[facility] University HospitalComment on above:Performed By: #### LACDS, TROPI, PRCAL, MYCM #### [facility] [address] [place] [address] 25430 GFR,non Amer>60Normal>60[facility] Comment on above:Performed By: #### LACDS, TROPI, PRCAL, MYCM #### [facility] [employer] [address] [place] [address] 05690 Glucose mass jags701 mg/mMYtdh60-78Wiewr [facility] Comment on above:Performed By: #### LACDS, TROPI, PRCAL, MYCM #### [facility] [employer] [address] [place] [address] 01468 Potassium molar conc4.4 mmol/LNormal3.7-5.3[facility] HospitalComment on above:Performed By: #### LACDS, TROPI, PRCAL, MYCM #### [facility] [employer] [address] [place] [address] 99603 Protein mass conc6.6 g/dLNormal6.4-8.3[facility] HospitalComment on above:Performed By: #### LACDS, TROPI, PRCAL, MYCM #### [facility] [employer] [address] [place] [address] 82602 Sodium molar xcha846 mmol/EHjcmly820-773Fymsz University HospitalComment on above:Performed By: #### LACDS, TROPI, PRCAL, MYCM #### [facility] [employer] [address] [place] [address] 97126 Urea nitrogen mass conc15 mg/dLNormal6-20[facility] HospitalComment on above:Performed By: #### LACDS, TROPI, PRCAL, MYCM #### [facility] [employer] [address] [place] [address] 07005 BUN/CRE RatioNOT REPORTEDNormal9-20[facility] Comment on above:Performed By: #### LACDS, TROPI, PRCAL, MYCM #### [facility] [employer] [address] [place] [address] 77516 Staging:NOT REPORTEDNoMercy HealthComment on above:Performed By: #### LACDS, TROPI, PRCAL, MYCM #### [facility] [employer] [address] [place] [address] 47198 Magnesiumon 25-88-6657Rpilksgzb mass conc2.2 mg/dLNormal1.6-2.6 [facility] CenterComment on above:Performed By: #### LACDS, TROPI, PRCAL, MYCM #### [facility] [employer] [address] [place] [address] 45083 Sedimentation Rateon 77-04-9126Hoszyglzphpjn Symz449 mmHigh0-20 [facility] CenterComment on above:Performed By: #### LACDS, TROPI, PRCAL, MYCM #### [facility] [employer] [address] [place] [address] 23032 XR FOOT LEFT (MIN 3 VIEWS)on 07-66-1684VA FOOT LEFT (MIN 3 VIEWS) EXAMINATION: 3 [...] Signed by: Andrey Angelo MD 08/20/18 Final resultNoMercy HealthCBC with Diffon [id number]. Basophil0.00 k/uLNormal0.0-0.2MSan Luis Obispo General HospitalComment on above: Performed By: #### LALO, TROPI, PRCAL, MYCM #### [facility] [employer] [address] [place] [address] 23328 Abs.Imm.Granulocyte0.42 k/uLHigh0.00-0.30[facility] Medical CenterComment on above:Performed By: #### LALO, TROPI, PRCAL, MYCM #### [facility] [employer] [address] [place] [address] 00713 Abs.Neutrophil (Seg)2.70 k/uLNormal1.8-7.7W[facility] Medical CenterComment on above:Performed By: #### LALO, TROPI, PRCAL, MYCM #### [facility] [employer] [address] [place] [address] 39446 Basophils/100 WBC (Bld)0 %Normal0-2MSan Luis Obispo General Hospital Comment on above:Performed By: #### LALO, TROPI, PRCAL, MYCM #### [facility] [employer] [address] [place] [address] 35610 Eosinophils #/vol (Bld)0.30 10*3/uLNormal0.0-0.4[facility] Medical CenterComment on above:Performed By: #### LACDS, TROPI, PRCAL, MYCM #### [employer] [address] [place] [address] 13076 Eosinophils/100 WBC (Bld)5 %High1-4[facility] Comment on above:Performed By: #### LACDS, TROPI, PRCAL, MYCM #### [facility] [employer] [address] [place] [address] 31154 Immature granulocytes #/vol (Bld)7 %Bssy7YplibWright-Patterson Medical CenterComment on above:Performed By: #### LACDS, TROPI, PRCAL, MYCM #### [facility] [employer] [address] [place] [address] 72759 Lymphocytes #/vol (Bld)2.22 10*3/uLNormal1.0-4.8[facility] Medical CenterComment on above:Performed By: #### LACDS, TROPI, PRCAL, MYCM #### [facility] [employer] [address] [place] [address] 60273 Lymphocytes/100 WBC (Bld)37 %Lertye41-43SeeieWright-Patterson Medical CenterComment on above:Performed By: #### LACDS, TROPI, PRCAL, MYCM #### [facility] [employer] [address] [place] [address] 47429 Monocytes #/vol (Bld)0.36 10*3/uLNormal0.1-0.8[facility] Medical CenterComment on above:Performed By: #### LACDS, TROPI, PRCAL, MYCM #### [facility] [employer] [address] [place] [address] 22912 Monocytes/100 WBC (Bld)6 %Normal1-7[facility] Comment on above:Performed By: #### LACDS, TROPI, PRCAL, MYCM #### [facility] [employer] [address] [place] [address] 72810 Morphology Interp Rehan (Bld)ANISOCYTOSIS PRESENTNormalWright-Patterson Medical CenterComment on above:Performed By: #### LACDS, TROPI, PRCAL, MYCM #### [employer] [address] [place] [address] 91626 Neutrophil (Seg)45 %Fceikc76-18ThakkWright-Patterson Medical Center Comment on above:Performed By: #### LACDS, TROPI, PRCAL, MYCM #### [employer] [address] [place] [address] 80902 Erythrocyte distribution width Ratio (RBC)14.6 %High11.8-14.4[facility] Medical CenterComment on above:Performed By: #### LACDS, TROPI, PRCAL, MYCM #### [facility] [employer] [address] [place] [address] 68538 Hematocrit Volume Fraction (Bld)34.4 %Low36.3-47.1MSan Luis Obispo General HospitalComment on above:Performed By: #### LACDS, TROPI, PRCAL, MYCM #### [facility] [employer] [address] [place] [address] 51881 Hemoglobin mass conc (Bld)10.4 g/dLLow11.9-15.1MSan Luis Obispo General HospitalComment on above:Performed By: #### LACDS, TROPI, PRCAL, MYCM #### [facility] [employer] [address] [place] [address] 75666 MCH Entitic mass (RBC)28.0 xlDqekgv96.2-33.5[facility] Medical CenterComment on above:Performed By: #### LACDS, TROPI, PRCAL, MYCM #### [facility] [employer] [address] [place] [address] 54647 MCHC mass conc (RBC)30.2 g/cZTnskzp50.4-34.8[facility] CenterComment on above:Performed By: #### LACDS, TROPI, PRCAL, MYCM #### [facility] [employer] [address] [place] [address] 94615 MCV Entitic volume (RBC)92.7 pMBbiaxr50.6-102.9[facility] Medical CenterComment on above:Performed By: #### LACDS, TROPI, PRCAL, MYCM #### [facility] [employer] [address] [place] [address] 46203 NRBC Automated0.3 per 100 WBCHigh0.0[facility] Medical CenterComment on above:Performed By: #### LACDS, TROPI, PRCAL, MYCM #### [employer] [address] [place] [address] 04105 Platelet mean volume Entitic volume (Bld)10.5 fLNormal8.1-13.5[facility] CenterComment on above:Performed By: #### LACDS, TROPI, PRCAL, MYCM #### [employer] [address] [place] [address] 28772 Platelets #/vol (Bld)168 10*3/vGUaampo701-274AsaotWright-Patterson Medical CenterComment on above:Performed By: #### LACDS, TROPI, PRCAL, MYCM #### [employer] [address] [place] [address] 78243 RBC #/vol (Bld)3.71 10*6/uLLow3.95-5.11[facility] CenterComment on above:Performed By: #### LACDS, TROPI, PRCAL, MYCM #### [employer] [address] [place] [address] 29629 WBC #/vol (Bld)6.0 10*3/uLNormal3.5-11.3MercScripps Green HospitalComment on above:Performed By: #### LACDS, TROPI, PRCAL, MYCM #### [employer] [address] [place] [address] 23337 Auto Diff PerformedNOT REPORTEDDoctors HospitalComment on above:Performed By: #### LACDS, TROPI, PRCAL, MYCM #### [employer] [address] [place] [address] 86316 Platelets #/vol (Bld)NOT REPORTEDDoctors HospitalComment on above:Performed By: #### LACDS, TROPI, PRCAL, MYCM #### [employer] [facility] [place] [address] RBC morphology finding Nom (Bld)NOT REPORTEDNoMercy HealthComment on above:Performed By: #### LACDS, TROPI, PRCAL, MYCM #### [employer] [address] [place] [address] 28023 WBC MorphologyNOT REPORTEDNormalWright-Patterson Medical Center Comment on above:Performed By: #### LACDS, TROPI, PRCAL, MYCM #### [employer] [address] [place] [address] 85010 Comp Metabolic Pr/rfx MGon 08-19-2018(cont.)NormalWright-Patterson Medical CenterComment on above:Result Comment: Average GFR for 30-39 years old: 107 mL/min/1.73sq m Chronic Kidney Disease: <60 mL/min/1.73sq m Kidney failure: <15 mL/min/1.73sq m eGFR calculated using average adult body mass. Additional eGFR calculator available at: http://www.Olocode/multiple_crcl_2012.htmPerformed By: #### LACDS, TROPI, PRCAL, MYCM #### [employer] [facility] [place] [address] Albumin mass conc2.7 g/dLLow3.5-5.2[facility] Comment on above:Performed By: #### LACDS, TROPI, PRCAL, MYCM #### [employer] [facility] [place] [address] Albumin/Globulin mass ratio0.8 {ratio}Low1.0-2.5[facility] Medical CenterComment on above:Performed By: #### LACDS, TROPI, PRCAL, MYCM #### [employer] [address] [place] [address] 81097 Alkaline Phos78 U/VHeyhad84-694ObgzjWright-Patterson Medical Center Comment on above:Performed By: #### LACDS, TROPI, PRCAL, MYCM #### [facility] [employer] [address] [place] [address] 05834 ALT enzyme act/vol16 U/LNormal5-33[facility] Comment on above:Performed By: #### LACDS, TROPI, PRCAL, MYCM #### [facility] [address] [place] [address] 99884 Anion gap molar conc10 mmol/LNormal9-17[facility] CenterComment on above:Performed By: #### LACDS, TROPI, PRCAL, MYCM #### [facility] [employer] [address] [place] [address] 01720 AST enzyme act/vol16 U/LNormal<32[facility] Comment on above:Performed By: #### LACDS, TROPI, PRCAL, MYCM #### [facility] [employer] [address] [place] [address] 17524 Bilirubin Ql (U)0.21 mg/dLLow0.3-1.2MSan Luis Obispo General HospitalComment on above:Performed By: #### LACDS, TROPI, PRCAL, MYCM #### [facility] [address] [place] [address] 62516 Calcium mass conc8.5 mg/dLLow8.6-10.4[facility] CenterComment on above:Performed By: #### LACDS, TROPI, PRCAL, MYCM #### [employer] [address] [place] [address] 21379 Chloride molar qzfp512 mmol/NHdupbr95-797YtawiWright-Patterson Medical CenterComment on above:Performed By: #### LACDS, TROPI, PRCAL, MYCM #### [employer] [address] [place] [address] 53267 CO2 molar conc24 mmol/VUrtaop96-17WncjnWright-Patterson Medical Center Comment on above:Performed By: #### LACDS, TROPI, PRCAL, MYCM #### [facility] [employer] [address] [place] [address] 51834 Creatinine mass conc0.88 mg/dLNormal0.50-0.90[facility] Medical CenterComment on above:Performed By: #### LACDS, TROPI, PRCAL, MYCM #### [facility] [employer] [address] [place] [address] 03130 GFR, Amer>60Normal>60[facility] CenterComment on above:Performed By: #### LACDS, TROPI, PRCAL, MYCM #### [facility] [employer] [address] [place] [address] 27701 GFR,non Amer>60Normal>60[facility] Comment on above:Performed By: #### LACDS, TROPI, PRCAL, MYCM #### [facility] [employer] [address] [place] [address] 55342 Glucose mass fjcb954 mg/jVUyfi61-42NuovbSan Luis Obispo General Hospital Comment on above:Performed By: #### LACDS, TROPI, PRCAL, MYCM #### [facility] [employer] [address] [place] [address] 71252 Potassium molar conc4.0 mmol/LNormal3.7-5.3MSan Luis Obispo General HospitalComment on above:Performed By: #### LACDS, TROPI, PRCAL, MYCM #### [facility] [employer] [address] [place] [address] 59189 Protein mass conc6.3 g/dLLow6.4-8.3Mtrihealth [facility]y [facility] Comment on above:Performed By: #### LACDS, TROPI, PRCAL, MYCM #### [facility] [employer] [address] [place] [address] 06576 Sodium molar udql710 mmol/SCqpzws165-102WjrvuWright-Patterson Medical CenterComment on above:Performed By: #### LALO, TROPI, PRCAL, MYCM #### [employer] [address] [place] [address] Urea nitrogen mass conc16 mg/dLNormal6-20[facility] CenterComment on above:Performed By: #### LACREY, TROPI, PRCAL, MYCM #### [employer] [facility] [place] [address] BUN/CRE RatioNOT REPORTEDNormal9-20[facility] Comment on above:Performed By: #### LALO, TROPI, PRCAL, MYCM #### [employer] [address] [place] [address] 90821 Staging:NOT REPORTEDNormGrant HospitalComment on above:Performed By: #### LACREY, TROPI, PRCAL, MYCM #### [employer] [address] [place] [address] 69178 Cult, Bloodon [id number], BloodSpecimen Description .BLOOD Special Requests L HAND [...] NOT REPORTED Trimethoprim/Sulfa <=10 SUSCEPTIBLE Vancomycin 1 SUSCEPTIBLENoMercy HealthComment on above: Performed By: #### LACDS, TROPI, PRCAL, MYCM #### [employer] [address] [place] [address] MRI CERVICAL SPINE W WO CONTRASTon [id number] CERVICAL SPINE W WO CONTRASTEXAMINATION: MRI OF [...] Signed by: Bo Rodrigues MD 08/19/18 Final resultNormalMerHenry Mayo Newhall Memorial HospitalMRI LUMBAR SPINE W WO CONTRAST on 09-19-4524IUY LUMBAR SPINE W WO CONTRASTEXAMINATION: MRI OF [...] by: Bo Rodrigues MD 08/19/18 Final resultNormalMercy [facility] THORACIC SPINE W WO CONTRASTon [id number] THORACIC SPINE W WO CONTRASTEXAMINATION: MRI OF [...] by: Bo Rodrigues MD 08/19/18 Final resultNormalMercy University HospitalMagnesiumon 08-19-2018 Magnesium mass conc2.3 mg/dLNormal1.6-2.6Mercy University HospitalComment on above:Performed By: #### GRACE MAY PRCAL, MARYCRUZM #### [employer] [address] [place] [address] Procalcitoninon 07-94-1831Hdrnlrk mass conc0.57 ng/mLHigh<0.09MerHenry Mayo Newhall Memorial HospitalComment on above:Result Comment: Suspected Sepsis: 0.09-0.49 [...] entered into the Change in Procalcitonin Calculator (www.fvjjlx-itw-vdiyhlmopk.com) to determine the patient's Mortality Risk PrognosisPerformed By: #### GRACE MAY PRCAL, MARYCRUZM #### [employer] [address] [place] [address] CBC with Diffon [id number]. Basophil<0.51Frabqt0.00-0.20MerHenry Mayo Newhall Memorial HospitalComment on above:Performed By: #### GRACE MAY PRCAL, JAZMYN #### [employer] [address] [place] [address] Abs.Imm.Granulocyte0.28 k/uLNormal0.00-0.30MerHenry Mayo [facility] Memorial HospitalComment on above:Performed By: #### DAMIEN MAYI, PRCAL, MYCM #### [facility] [employer] [address] [place] [address] 00653 Abs.Neutrophil (Seg)3.23 k/uLNormal1.50-8.10[facility] Medical CenterComment on above:Performed By: #### LACDS, TROPI, PRCAL, MYCM #### [facility] [employer] [address] [place] [address] 73262 Basophils/100 WBC (Bld)0 %Normal0-2Mercy [facility] Comment on above:Performed By: #### LACDS, TROPI, PRCAL, MYCM #### [facility] [employer] [address] [place] [address] 02034 Eosinophils #/vol (Bld)0.15 10*3/uLNormal0.00-0.44[facility] CenterComment on above:Performed By: #### LACDS, TROPI, PRCAL, MYCM #### [facility] [employer] [address] [place] [address] 76265 Eosinophils/100 WBC (Bld)3 %Normal1-4[facility] CenterComment on above:Performed By: #### LACDS, TROPI, PRCAL, MYCM #### [facility] [address] [place] [address] 61193 Erythrocyte distribution width Ratio (RBC)14.7 %High11.8-14.4[facility] Medical CenterComment on above:Performed By: #### LACDS, TROPI, PRCAL, MYCM #### [facility] [employer] [address] [place] [address] 70369 Hematocrit Volume Fraction (Bld)32.7 %Low36.3-47.1MercScripps Green HospitalComment on above:Performed By: #### LACDS, TROPI, PRCAL, MYCM #### [facility] [address] [place] [address] 28329 Hemoglobin mass conc (Bld)10.1 g/dLLow11.9-15.1[facility]y [facility] HospitalComment on above:Performed By: #### LACREY, TROPI, PRCAL, MYCM #### [facility] [employer] [address] [place] [address] 67105 Immature granulocytes #/vol (Bld)5 %Vkvb0FsdfrWright-Patterson Medical CenterComment on above:Performed By: #### LACREY, TROPI, PRCAL, MYCM #### [facility] [employer] [address] [place] [address] 37805 Lymphocytes #/vol (Bld)1.58 10*3/uLNormal1.10-3.70[facility] CenterComment on above:Performed By: #### LACREY, TROPI, PRCAL, MYCM #### [facility] [employer] [address] [place] [address] 12508 Lymphocytes/100 WBC (Bld)28 %Pkwiqe27-57SmdwwWright-Patterson Medical CenterComment on above:Performed By: #### LALO, TROPI, PRCAL, MYCM #### [facility] [employer] [address] [place] [address] 19046 MCH Entitic mass (RBC)28.2 jzGhsmgy94.2-33.5[facility] CenterComment on above:Performed By: #### LACREY, TROPI, PRCAL, MYCM #### [facility] [employer] [address] [place] [address] 09080 MCHC mass conc (RBC)30.9 g/vIIudjsp78.4-34.8[facility] CenterComment on above:Performed By: #### LACDS, TROPI, PRCAL, MYCM #### [facility] [employer] [address] [place] [address] 65583 MCV Entitic volume (RBC)91.3 oOHaxknj09.6-102.9[facility] Medical CenterComment on above:Performed By: #### LACDS, TROPI, PRCAL, MYCM #### [facility] [address] [place] [address] 16585 Monocytes #/vol (Bld)0.47 10*3/uLNormal0.10-1.20[facility] CenterComment on above:Performed By: #### LACDS, TROPI, PRCAL, MYCM #### [facility] [employer] [address] [place] [address] 72883 Monocytes/100 WBC (Bld)8 %Normal3-12[facility] Medical CenterComment on above:Performed By: #### LACDS, TROPI, PRCAL, MYCM #### [facility] [address] [place] [address] 77450 Neutrophil (Seg)56 %Athgct59-91IbpuwWright-Patterson Medical Center Comment on above:Performed By: #### LACDS, TROPI, PRCAL, MYCM #### [facility] [employer] [address] [place] [address] 93647 NRBC Automated0.0 per 100 WBCNormal0.0[facility] Medical CenterComment on above:Performed By: #### LACDS, TROPI, PRCAL, MYCM #### [address] [address] Platelet mean volume Entitic volume (Bld)11.4 fLNormal8.1-13.5[facility] Medical CenterComment on above:Performed By: #### LACDS, TROPI, PRCAL, MYCM #### [facility] [employer] [address] [place] [address] 87223 Platelets #/vol (Bld)153 10*3/mHOswrqg213-177EcrmdWright-Patterson Medical CenterComment on above:Performed By: #### LACDS, TROPI, PRCAL, MYCM #### [employer] [address] [place] [address] 69829 RBC #/vol (Bld)3.58 10*6/uLLow3.95-5.11[facility] Medical CenterComment on above:Performed By: #### LACDS, TROPI, PRCAL, MYCM #### [employer] [address] [place] [address] 28398 RBC morphology finding Nom (Bld)ANISOCYTOSIS PRESENTNormalWright-Patterson Medical CenterComment on above:Performed By: #### LACDS, TROPI, PRCAL, MYCM #### [facility] [employer] [address] [place] [address] 85666 WBC #/vol (Bld)5.7 10*3/uLNormal3.5-11.3[facility] HospitalComment on above:Performed By: #### LACDS, TROPI, PRCAL, MYCM #### [employer] [address] [place] [address] 17500 Auto Diff PerformedNOT REPORTEDNormGrant HospitalComment on above:Performed By: #### LACDS, TROPI, PRCAL, MYCM #### [employer] [address] [place] [address] 95623 Platelets #/vol (Bld)NOT REPORTEDNormGrant HospitalComment on above:Performed By: #### LACDS, TROPI, PRCAL, MYCM #### [employer] [address] [place] [address] 83165 WBC MorphologyNOT REPORTEDNoMercy Health Comment on above:Performed By: #### LACDS, TROPI, PRCAL, MYCM #### [employer] [address] [place] [address] 66891 Comp Metabolic Pr/rfx MGon 08-18-2018(cont.)NormalWright-Patterson Medical CenterComment on above:Result Comment: Average GFR for 30-39 years old: 107 mL/min/1.73sq m Chronic Kidney Disease: <60 mL/min/1.73sq m Kidney failure: <15 mL/min/1.73sq m eGFR calculated using average adult body mass. Additional eGFR calculator available at: http://www.[employer]/multiple_crcl_2012.htmPerformed By: #### LACDS, TROPI, PRCAL, MYCM #### [facility] [address] [place] [address] 75334 Albumin mass conc2.7 g/dLLow3.5-5.2[facility]y [facility] Comment on above:Performed By: #### LACDS, TROPI, PRCAL, MYCM #### [facility] [employer] [address] [place] [address] 35238 Albumin/Globulin mass ratio0.8 {ratio}Low1.0-2.5[facility] Medical CenterComment on above:Performed By: #### LACDS, TROPI, PRCAL, MYCM #### [employer] [address] [place] [address] 93087 Alkaline Phos82 U/GUeeftt01-392PlglaWright-Patterson Medical Center Comment on above:Performed By: #### LACDS, TROPI, PRCAL, MYCM #### [facility] [address] [place] [address] 47126 ALT enzyme act/vol19 U/LNormal5-33[facility] Comment on above:Performed By: #### LACDS, TROPI, PRCAL, MYCM #### [employer] [address] [place] [address] 54000 Anion gap molar conc8 mmol/LLow9-17[facility] Comment on above:Performed By: #### LACDS, TROPI, PRCAL, MYCM #### [employer] [address] [place] [address] 31925 AST enzyme act/vol17 U/LNormal<32[facility] Comment on above:Performed By: #### LACDS, TROPI, PRCAL, MYCM #### [facility] [address] [place] [address] 80078 Bilirubin Ql (U)0.24 mg/dLLow0.3-1.2MSan Luis Obispo General HospitalComment on above:Performed By: #### LACDS, TROPI, PRCAL, MYCM #### [facility] [address] [place] [address] 04432 Calcium mass conc8.2 mg/dLLow8.6-10.4[facility] Medical CenterComment on above:Performed By: #### LACDS, TROPI, PRCAL, MYCM #### [facility] [employer] [address] [place] [address] 44880 Chloride molar cqhp165 mmol/ARpyoqd04-799OcbioWright-Patterson Medical CenterComment on above:Performed By: #### LACDS, TROPI, PRCAL, MYCM #### [facility] [employer] [address] [place] [address] 85225 CO2 molar conc25 mmol/VMegcwt52-56OjdmsWright-Patterson Medical Center Comment on above:Performed By: #### LACDS, TROPI, PRCAL, MYCM #### [facility] [employer] [address] [place] [address] 82093 Creatinine mass conc0.94 mg/dLHigh0.50-0.90[facility] Medical CenterComment on above:Performed By: #### LACDS, TROPI, PRCAL, MYCM #### [facility] [employer] [address] [place] [address] 83485 GFR, Amer>60Normal>60MerHenry Mayo Newhall Memorial HospitalComment on above:Performed By: #### LACDS, TROPI, PRCAL, MYCM #### [facility] [employer] [address] [place] [address] 94266 GFR,non Amer>60Normal>60[facility] Comment on above:Performed By: #### LACDS, TROPI, PRCAL, MYCM #### [facility] [employer] [address] [place] [address] 25353 Glucose mass njpz948 mg/tEVmux18-06HatibSan Luis Obispo General Hospital Comment on above:Performed By: #### LACDS, TROPI, PRCAL, MYCM #### [facility] [employer] [address] [place] [address] 87341 Potassium molar conc4.1 mmol/LNormal3.7-5.3MSan Luis Obispo General HospitalComment on above:Performed By: #### LACDS, TROPI, PRCAL, MYCM #### [facility] [employer] [address] [place] [address] 84096 Protein mass conc6.2 g/dLLow6.4-8.3MSan Luis Obispo General Hospital Comment on above:Performed By: #### LACDS, TROPI, PRCAL, MYCM #### [facility] [employer] [address] [place] [address] 88048 Sodium molar lvgm617 mmol/BPzwifz516-955IvhozWright-Patterson Medical CenterComment on above:Performed By: #### LACDS, TROPI, PRCAL, MYCM #### [facility] [employer] [address] [place] [address] 67049 Urea nitrogen mass conc14 mg/dLNormal6-20[facility] Medical CenterComment on above:Performed By: #### LACDS, TROPI, PRCAL, MYCM #### [facility] [employer] [address] [place] [address] 58625 BUN/CRE RatioNOT REPORTEDNormal9-20[facility] Comment on above:Performed By: #### LACDS, TROPI, PRCAL, MYCM #### [facility] [employer] [address] [place] [address] 08491 Staging:NOT REPORTEDNoMercy HealthComment on above:Performed By: #### LALO, TROPI, PRCAL, MYCM #### [employer] [address] [place] [address] 99249 Magnesiumon 41-14-4065Pftvspmjd mass conc2.3 mg/dLNormal1.6-2.6 [facility] CenterComment on above:Performed By: #### LACREY, TROPI, PRCAL, MYCM #### [employer] [address] [place] [address] 95535 Vancomycin Troughon 18-95-7516Saazisdhkd Mkvltp01.7 ug/mLNormal 10.0-20.0[facility] Medical CenterComment on above:Result Comment: Higher trough serum vancomycin concentrations of 15-20 ug/mL are recommended for complicated infections such as bacteremia, endocarditis, osteomyelitis, meningitis, and hospital acquired pneumonia.Performed By: #### LALO, TROPI, PRCAL, MYCM #### [employer] [address] [place] [address] 50950 Date last dose,NOT REPORTEDNoMercy Health Comment on above:Performed By: #### LALO, TROPI, PRCAL, MYCM #### [employer] [address] [place] [address] 78537 Dose amount,NOT REPORTEDNoMercy Health Comment on above:Performed By: #### LACREY, TROPI, PRCAL, MYCM #### [employer] [address] [place] [address] 11545 Time last dose,NOT REPORTEDNoMercy Health Comment on above:Performed By: #### LACREY, TROPI, PRCAL, MYCM #### [employer] [address] [place] [address] 13301 [phone]-Ccaaobed Proteinon 86-81-7777DUQ mass yxjw690.1 mg/LHigh0.0-5.0 [facility] CenterComment on above:Performed By: #### LALO, DAMIENI, PRCAL, MYCM #### [place] [address] CBC with Diffon 24-62-1520Ozr. Basophil0.00 k/uLNormal0.0-0.2MSan Luis Obispo General HospitalComment on above:Performed By: #### LALO, TROPI, PRCAL, MYCM #### [facility] [employer] [address] [place] [address] 76454 Abs.Imm.Granulocyte0.13 k/uLNormal0.00-0.30[facility] CenterComment on above:Performed By: #### LALO, TROPI, PRCAL, MYCM #### [place] [address] Abs.Neutrophil (Seg)4.35 k/uLNormal1.8-7.7[facility] Medical CenterComment on above:Performed By: #### LALO, TROPI, PRCAL, MYCM #### [address] 17787 Basophils/100 WBC (Bld)0 %Normal0-2MSan Luis Obispo General Hospital Comment on above:Performed By: #### LALO, TROPI, PRCAL, MYCM #### [address] [address] Eosinophils #/vol (Bld)0.06 10*3/uLNormal0.0-0.4[facility] Medical CenterComment on above:Performed By: #### LALO, TROPI, PRCAL, MYCM #### [facility] [employer] [address] [place] [address] 22861 Eosinophils/100 WBC (Bld)1 %Normal1-4[facility] Medical CenterComment on above:Performed By: #### LACDS, TROPI, PRCAL, MYCM #### [facility] [employer] [address] [place] [address] 38828 Immature granulocytes #/vol (Bld)2 %Llyv9WqqlrWright-Patterson Medical CenterComment on above:Performed By: #### LACDS, TROPI, PRCAL, MYCM #### [facility] [employer] [address] [place] [address] 31774 Lymphocytes #/vol (Bld)1.32 10*3/uLNormal1.0-4.8[facility] CenterComment on above:Performed By: #### LACDS, TROPI, PRCAL, MYCM #### [facility] [employer] [address] [place] [address] 42638 Lymphocytes/100 WBC (Bld)21 %Htm66-34OitqnWright-Patterson Medical CenterComment on above:Performed By: #### LACDS, TROPI, PRCAL, MYCM #### [facility] [employer] [address] [place] [address] 24603 Monocytes #/vol (Bld)0.44 10*3/uLNormal0.1-0.8[facility] CenterComment on above:Performed By: #### LACDS, TROPI, PRCAL, MYCM #### [facility] [employer] [address] [place] [address] 67625 Monocytes/100 WBC (Bld)7 %Normal1-7[facility] Comment on above:Performed By: #### LACDS, TROPI, PRCAL, MYCM #### [facility] [employer] [address] [place] [address] 55426 Morphology Interp Rehan (Bld)ANISOCYTOSIS PRESENTNormalWright-Patterson Medical CenterComment on above:Result Comment: INCREASED BANDS PRESENT 1+ TEARDROPSPerformed By: #### LACDS, TROPI, PRCAL, MYCM #### [facility] [employer] [address] [place] [address] 79083 Neutrophil (Seg)69 %Cnys56-46CrqsmWright-Patterson Medical Center Comment on above:Performed By: #### LACDS, TROPI, PRCAL, MYCM #### [facility] [employer] [address] [place] [address] 77889 Erythrocyte distribution width Ratio (RBC)14.8 %High11.8-14.4[facility] Medical CenterComment on above:Performed By: #### LACDS, TROPI, PRCAL, MYCM #### [facility] [employer] [address] [place] [address] 14757 Hematocrit Volume Fraction (Bld)33.3 %Low36.3-47.1MSan Luis Obispo General HospitalComment on above:Performed By: #### LACDS, TROPI, PRCAL, MYCM #### [facility] [employer] [address] [place] [address] 64348 Hemoglobin mass conc (Bld)10.2 g/dLLow11.9-15.1MSan Luis Obispo General HospitalComment on above:Performed By: #### LACDS, TROPI, PRCAL, MYCM #### [facility] [employer] [address] [place] [address] 79188 MCH Entitic mass (RBC)28.3 hmTpaqxq23.2-33.5[facility] CenterComment on above:Performed By: #### LACDS, TROPI, PRCAL, MYCM #### [facility] [employer] [address] [place] [address] 49271 MCHC mass conc (RBC)30.6 g/rSBzurzh90.4-34.8[facility] CenterComment on above:Performed By: #### LACDS, TROPI, PRCAL, MYCM #### [facility] [employer] [address] [place] [address] 47863 MCV Entitic volume (RBC)92.2 sWMlccaw35.6-102.9[facility] CenterComment on above:Performed By: #### LACDS, TROPI, PRCAL, MYCM #### [facility] [address] [place] [address] 69129 NRBC Automated0.0 per 100 WBCNormal0.0[facility] CenterComment on above:Performed By: #### LACDS, TROPI, PRCAL, MYCM #### [facility] [address] [place] [address] Platelet mean volume Entitic volume (Bld)11.5 fLNormal8.1-13.5[facility] CenterComment on above:Performed By: #### LACDS, TROPI, PRCAL, MYCM #### [facility] [employer] [address] [place] [address] Platelets #/vol (Bld)149 10*3/cVEisrdp904-820YglkdWright-Patterson Medical CenterComment on above:Performed By: #### LACDS, TROPI, PRCAL, MYCM #### [facility] [employer] [address] [place] [address] 76410 RBC #/vol (Bld)3.61 10*6/uLLow3.95-5.11[facility] CenterComment on above:Performed By: #### LACDS, TROPI, PRCAL, MYCM #### [facility] [employer] [address] [place] [address] 05815 WBC #/vol (Bld)6.3 10*3/uLNormal3.5-11.3MSan Luis Obispo General HospitalComment on above:Performed By: #### LACDS, TROPI, PRCAL, MYCM #### [facility] [employer] [address] [place] [address] 79301 Auto Diff PerformedNOT REPORTEDKansas City Va Medical CenteralWright-Patterson Medical CenterComment on above:Performed By: #### LACDS, TROPI, PRCAL, MYCM #### [employer] [address] [place] [address] 45341 Platelets #/vol (Bld)NOT REPORTEDNoMercy HealthComment on above:Performed By: #### LACDS, TROPI, PRCAL, MYCM #### [employer] [address] [place] [address] 79847 RBC morphology finding Nom (Bld)NOT REPORTEDNoMercy HealthComment on above:Performed By: #### LACDS, TROPI, PRCAL, MYCM #### [employer] [address] [place] [address] 01123 WBC MorphologyNOT REPORTEDNoMercy Health Comment on above:Performed By: #### LACDS, TROPI, PRCAL, MYCM #### [employer] [address] [place] [address] 29517 Comp Metabolic Pr/rfx MGon 08-17-2018(cont.)[facility] HospitalComment on above:Result Comment: Average GFR for 30-39 years old: 107 mL/min/1.73sq m Chronic Kidney Disease: <60 mL/min/1.73sq m Kidney failure: <15 mL/min/1.73sq m eGFR calculated using average adult body mass. Additional eGFR calculator available at: http://www.[employer].com/multiple_crcl_2012.htmPerformed By: #### LACDS, TROPI, PRCAL, MYCM #### [employer] [address] [place] [address] 86006 Albumin mass conc2.4 g/dLLow3.5-5.2[facility] Comment on above:Performed By: #### LACDS, TROPI, PRCAL, MYCM #### [employer] [address] [place] [address] 18049 Albumin/Globulin mass ratio0.7 {ratio}Low1.0-2.5[facility] Medical CenterComment on above:Performed By: #### LACDS, TROPI, PRCAL, MYCM #### [facility] [employer] [address] [place] [address] 35700 Alkaline Phos76 U/TUztmgt83-496MgjwbWright-Patterson Medical Center Comment on above:Performed By: #### LACDS, TROPI, PRCAL, MYCM #### [facility] [employer] [address] [place] [address] 97595 ALT enzyme act/vol25 U/LNormal5-33[facility] Comment on above:Performed By: #### LACDS, TROPI, PRCAL, MYCM #### [facility] [employer] [address] [place] [address] 67239 Anion gap molar conc8 mmol/LLow9-17[facility] Comment on above:Performed By: #### LACDS, TROPI, PRCAL, MYCM #### [facility] [employer] [address] [place] [address] 83297 AST enzyme act/vol26 U/LNormal<32[facility] Comment on above:Performed By: #### LACDS, TROPI, PRCAL, MYCM #### [facility] [employer] [address] [place] [address] 42386 Bilirubin Ql (U)0.34 mg/dLNormal0.3-1.2MSan Luis Obispo General HospitalComment on above:Performed By: #### LACDS, TROPI, PRCAL, MYCM #### [facility] [employer] [address] [place] [address] 72798 Calcium mass conc7.8 mg/dLLow8.6-10.4[facility] CenterComment on above:Performed By: #### LACDS, TROPI, PRCAL, MYCM #### [facility] [employer] [address] [place] [address] 60662 Chloride molar conc99 mmol/NSllhyv77-070AzuqvWright-Patterson Medical CenterComment on above:Performed By: #### LACDS, TROPI, PRCAL, MYCM #### [facility] [address] [place] [address] 21626 CO2 molar conc23 mmol/TQakxij26-58LxdxqWright-Patterson Medical Center Comment on above:Performed By: #### LACDS, TROPI, PRCAL, MYCM #### [facility] [employer] [address] [place] [address] 30636 Creatinine mass conc1.04 mg/dLHigh0.50-0.90[facility] CenterComment on above:Performed By: #### LACDS, TROPI, PRCAL, MYCM #### [facility] [employer] [address] [place] [address] 63907 GFR, Amer>60Normal>60[facility] CenterComment on above:Performed By: #### LACDS, TROPI, PRCAL, MYCM #### [facility] [employer] [address] [place] [address] 41489 GFR,non Amer59 mL/minLow>60[facility] Comment on above:Performed By: #### LACDS, TROPI, PRCAL, MYCM #### [facility] [employer] [address] [place] [address] 98570 Glucose mass jjdn140 mg/fONnek94-75[facility] Comment on above:Performed By: #### LACDS, TROPI, PRCAL, MYCM #### [facility] [employer] [address] [place] [address] 81653 Potassium molar conc3.8 mmol/LNormal3.7-5.3MSan Luis Obispo General HospitalComment on above:Performed By: #### LACDS, TROPI, PRCAL, MYCM #### [facility] [employer] [address] [place] [address] 01553 Protein mass conc5.8 g/dLLow6.4-8.3[facility] Comment on above:Performed By: #### LACDS, TROPI, PRCAL, MYCM #### [facility] [employer] [address] [place] [address] 79362 Sodium molar meuz260 mmol/RMjo953-750ZxjcxWright-Patterson Medical CenterComment on above:Performed By: #### LACDS, TROPI, PRCAL, MYCM #### [facility] [employer] [address] [place] [address] 31024 Urea nitrogen mass conc15 mg/dLNormal6-20[facility] CenterComment on above:Performed By: #### LACDS, TROPI, PRCAL, MYCM #### [facility] [employer] [address] [place] [address] 73366 BUN/CRE RatioNOT REPORTEDNormal9-20[facility] Comment on above:Performed By: #### LACDS, TROPI, PRCAL, MYCM #### [facility] [employer] [address] [place] [address] 39600 Staging:NOT REPORTEDNormalWright-Patterson Medical CenterComment on above:Performed By: #### LACDS, TROPI, PRCAL, MYCM #### [address] [address] Magnesiumon 48-25-6904Eqbkuegxo mass conc2.2 mg/dLNormal1.6-2.6 [facility] CenterComment on above:Performed By: #### LACDS, TROPI, PRCAL, MYCM #### [facility] [employer] [address] [place] [address] 73781 Procalcitoninon 10-70-3367Sedzpdb mass conc1.48 ng/mLHigh<0.09[facility] Medical CenterComment on above:Result Comment: Suspected Sepsis: [...] entered into the Change in Procalcitonin Calculator (www.fnsdqn-kip-viaqcpgyxw.Mowdo) to determine the patient's Mortality Risk PrognosisPerformed By: #### GRACE MAY PRCAL, MYCM #### [employer] [address] [place] [address] Sedimentation Rateon 81-26-1715Cdpkbqpgsygnk Rate97 mmHigh0-20[facility] CenterComment on above:Performed By: #### GRACE MAY PRCAL, MYCM #### [employer] [address] [place] [address] CBC with Diffon 30-51-5574Flk. Basophil0.00 k/uLNormal0.00-0.20 [facility] CenterComment on above:Performed By: #### GRACE MAY PRCAL, JAZMYN #### [employer] [address] [place] [address] Abs.Imm.Granulocyte0.11 k/uLNormal0.00-0.30[facility] CenterComment on above:Performed By: #### GRACE MAY PRCAL, MYCM #### [employer] [address] [place] [address] Abs.Neutrophil (Seg)4.60 k/uLNormal1.50-8.10W[facility]-Patterson Medical CenterComment on above:Performed By: #### GRACE MAY PRCAL, MYCM #### [facility] [address] [place] [address]454 Basophils/100 WBC (Bld)0 %Normal0-2MSan [facility]is[facility] Comment on above:Performed By: #### LACDS, TROPI, PRCAL, MYCM #### [address] [address] Eosinophils #/vol (Bld)0.00 10*3/uLNormal0.00-0.44W[facility]-Patterson Medical CenterComment on above:Performed By: #### LACDS, TROPI, PRCAL, MYCM #### [facility] [employer] [address] [place] [address] Eosinophils/100 WBC (Bld)0 %Low1-4[facility] Comment on above:Performed By: #### LACDS, TROPI, PRCAL, MYCM #### [facility] [employer] [address] [place] [address]86 Immature granulocytes #/vol (Bld)2 %Ccny5ZgiqiWright-Patterson Medical CenterComment on above:Performed By: #### LACDS, TROPI, PRCAL, MYCM #### [facility] [employer] [address] [place] [address] 54264 Lymphocytes #/vol (Bld)0.67 10*3/uLLow1.10-3.70[facility] CenterComment on above:Performed By: #### LACDS, TROPI, PRCAL, MYCM #### [facility] [employer] [address] [place] [address] 27904 Lymphocytes/100 WBC (Bld)12 %Rjh48-00EucvbWright-Patterson Medical CenterComment on above:Performed By: #### LACDS, TROPI, PRCAL, MYCM #### [facility] [employer] [address] [place] [address] 40082 Monocytes #/vol (Bld)0.22 10*3/uLNormal0.10-1.20[facility] CenterComment on above:Performed By: #### LACREY, TROPI, PRCAL, MYCM #### [employer] [address] [place] [address] Monocytes/100 WBC (Bld)4 %Normal3-12[facility] Medical CenterComment on above:Performed By: #### LACDS, TROPI, PRCAL, MYCM #### [employer] [address] [place] [address] 6[address]73 Morphology Interp Rehan (Bld)ANISOCYTOSIS PRESENTNormalWright-Patterson Medical CenterComment on above:Result Comment: INCREASED BANDS PRESENT 1+ TEARDROPSPerformed By: #### LACREY, TROPI, PRCAL, MYCM #### [employer] [address] [place] [address]2362 Neutrophil (Seg)82 %Yche60-71ZpfsrWright-Patterson Medical Center Comment on above:Performed By: #### LACREY, TROPI, PRCAL, MYCM #### [employer] [address] [place] [address] Erythrocyte distribution width Ratio (RBC)15.1 %High11.8-14.4[facility] Medical CenterComment on above:Performed By: #### LACDS, TROPI, PRCAL, MYCM #### [employer] [address] [place] [address] 95502 Hematocrit Volume Fraction (Bld)34.1 %Low36.3-47.1MSan Luis Obispo General HospitalComment on above:Performed By: #### LACDS, TROPI, PRCAL, MYCM #### [employer] [address] [place] [address] 97190 Hemoglobin mass conc (Bld)10.0 g/dLLow11.9-15.1MercGulf Breeze HospitalRulo Medical CenterComment on above:Performed By: #### LACDS, TROPI, PRCAL, MYCM #### [facility] [employer] [address] [place] [address] MCH Entitic mass (RBC)28.7 moItkssi34.2-33.5[facility] Medical CenterComment on above:Performed By: #### LACDS, TROPI, PRCAL, MYCM #### [facility] [employer] [address] [place] [address] MCHC mass conc (RBC)29.3 g/pSEinfvj62.4-34.8[facility] Medical CenterComment on above:Performed By: #### LACDS, TROPI, PRCAL, MYCM #### [facility] [employer] [address] [place] [address] MCV Entitic volume (RBC)98.0 uQKlryiz33.6-102.9[facility] Medical CenterComment on above:Performed By: #### LACDS, TROPI, PRCAL, MYCM #### [place] [address] NRBC Automated0.0 per 100 WBCNormal0.0W[facility]-Patterson Medical CenterComment on above:Performed By: #### LACDS, TROPI, PRCAL, MYCM #### [place] [address] Platelet mean volume Entitic volume (Bld)11.1 fLNormal8.1-13.5W[facility]-Pat[facility] Medical CenterComment on above:Performed By: #### LACDS, TROPI, PRCAL, MYCM #### [place] [address] Platelets #/vol (Bld)119 10*3/rTDtt643-528YgbydWright-Patterson Medical CenterComment on above:Performed By: #### LACDS, TROPI, PRCAL, MYCM #### [employer] [address] [place] [address] 31611 RBC #/vol (Bld)3.48 10*6/uLLow3.95-5.11[facility] HospitalComment on above:Performed By: #### LACDS, TROPI, PRCAL, MYCM #### [employer] [address] [place] [address] WBC #/vol (Bld)5.6 10*3/uLNormal3.5-11.3[facility] HospitalComment on above:Performed By: #### LACDS, TROPI, PRCAL, MYCM #### [employer] [address] [place] [address] 7[address] Auto Diff PerformedNOT REPORTEDDoctors HospitalComment on above:Performed By: #### LACDS, TROPI, PRCAL, MYCM #### [employer] [address] [place] [address]239 Platelets #/vol (Bld)NOT REPORTEDDoctors HospitalComment on above:Performed By: #### LACDS, TROPI, PRCAL, MYCM #### [employer] [address] [place] [address] 06081 RBC morphology finding Nom (Bld)NOT REPORTEDDoctors HospitalComment on above:Performed By: #### LACDS, TROPI, PRCAL, MYCM #### [employer] [address] [place] [address] 45969 WBC MorphologyNOT REPORTEDDoctors Hospital Comment on above:Performed By: #### LACDS, TROPI, PRCAL, MYCM #### [employer] [address] [place] [address] HEAD WO CONTRASTon 55-90-2088KA HEAD WO CONTRASTEXAMINATION: CT OF THE HEAD [...] Signed by: Erica Angeles MD 08/16/18 Final resultNormalWright-Patterson Medical CenterCalcium, Ionicon 08-16-2018 Calcium mass conc0.99 mmol/LLow1.13-1.33W[facility]-Patterson Medical CenterComment on above:Performed By: #### LACDS, TROPI, PRCAL, MYCM #### [employer] [address] [place] [address] Comp Metabolic Pr/rfx MGon 08-16-2018(cont.)NormalWright-Patterson Medical CenterComment on above:Result Comment: Average GFR for 30-39 years old: 107 mL/min/1.73sq m Chronic Kidney Disease: <60 mL/min/1.73sq m Kidney failure: <15 mL/min/1.73sq m eGFR calculated using average adult body mass. Additional eGFR calculator available at: http://www.[employer].com/multiple_crcl_2012.htmPerformed By: #### PT, CMPX, MG, CDP #### [employer] [facility] [place] [address] Albumin mass conc2.3 g/dLLow3.5-5.2[facility] Comment on above:Performed By: #### PT, CMPX, MG, CDP #### [facility] [employer] [address] [place] [address] Albumin/Globulin mass ratio0.7 {ratio}Low1.0-2.5W[facility]Pat[facility] Medical CenterComment on above:Performed By: #### PT, CMPX, MG, CDP #### [facility] [employer] [address] [place] [address]66 Alkaline Phos67 U/RPzncml80-075YbzxvWright-Patterson Medical Center Comment on above:Performed By: #### PT, CMPX, MG, CDP #### [facility] [employer] [address] [place] [address] 19554 ALT enzyme act/vol33 U/LNormal5-33[facility] Comment on above:Performed By: #### PT, CMPX, MG, CDP #### [facility] [employer] [address] [place] [address] Anion gap molar conc11 mmol/LNormal9-17[facility] Medical CenterComment on above:Performed By: #### PT, CMPX, MG, CDP #### [facility] [employer] [address] [place] [address] 52505 AST enzyme act/vol41 U/LHigh<32[facility] Comment on above:Performed By: #### PT, CMPX, MG, CDP #### [facility] [employer] [address] [place] [address] Bilirubin Ql (U)0.40 mg/dLNormal0.3-1.2MSan Luis Obispo General HospitalComment on above:Performed By: #### PT, CMPX, MG, CDP #### [facility] [employer] [address] [place] [address] Calcium mass conc7.3 mg/dLLow8.6-10.4[facility] Medical CenterComment on above:Performed By: #### PT, CMPX, MG, CDP #### [facility] [employer] [address] [place] [address] 43399 Chloride molar buwx762 mmol/CVdbmxt94-451OfmkkWright-Patterson Medical CenterComment on above:Performed By: #### PT, CMPX, MG, CDP #### [facility] [employer] [address] [place] [address] 88902 CO2 molar conc18 mmol/HFfd85-66OqlclWright-Patterson Medical Center Comment on above:Performed By: #### PT, CMPX, MG, CDP #### [facility] [employer] [address] [place] [address] 31333 Creatinine mass conc1.09 mg/dLHigh0.50-0.90W[facility] Medical CenterComment on above:Performed By: #### PT, CMPX, MG, CDP #### [facility] [employer] [address] [place] [address] GFR, Amer>60Normal>60[facility]terson Medical CenterComment on above:Performed By: #### PT, CMPX, MG, CDP #### [facility] [address] [place] [address] 32940 GFR,non Amer56 mL/minLow>60[facility] Comment on above:Performed By: #### PT, CMPX, MG, CDP #### [facility] [address] [place] [address]120 Glucose mass acgd040 mg/iUIgnz57-16EmylySan Luis Obispo General Hospital Comment on above:Performed By: #### PT, CMPX, MG, CDP #### [facility] [address] [place] [address]00 Potassium molar conc3.6 mmol/LLow3.7-5.3MSan Luis Obispo General HospitalComment on above:Performed By: #### PT, CMPX, MG, CDP #### [facility] [address] [place] [address] 92098 Protein mass conc5.5 g/dLLow6.4-8.3MSan [facility]is[facility] Hospital Comment on above:Performed By: #### PT, CMPX, MG, CDP #### [facility] [employer] [address] [place] [address] 85317 Sodium molar kuya309 mmol/SFpx333-472HzesbWright-Patterson Medical CenterComment on above:Performed By: #### PT, CMPX, MG, CDP #### [facility] [employer] [address] [place] [address] 69620 Urea nitrogen mass conc17 mg/dLNormal6-20[facility] Medical CenterComment on above:Performed By: #### PT, CMPX, MG, CDP #### [facility] [employer] [address] [place] [address]3946 BUN/CRE RatioNOT REPORTEDNoal9-20[facility] Comment on above:Performed By: #### PT, CMPX, MG, CDP #### [facility] [employer] [address] [place] [address] 23913 Staging:NOT REPORTEDNormalWright-Patterson Medical CenterComment on above:Performed By: #### PT, CMPX, MG, CDP #### [facility] [employer] [address] [place] [address] 29138 Lactic Acid,Whole Blon 56-62-3785Xoccfo Acid,Whole Bl1.2 mmol/L Normal0.7-2.1MSan Luis Obispo General HospitalComment on above:Performed By: #### LACDS, TROPI, PRCAL, MYCM #### [facility] [employer] [address] [place] [address] 77820 Lactic Acid,Whole Bl1.2 mmol/LNormal0.7-2.1[facility] HospitalComment on above:Performed By: #### LACWB #### [address] [address] Magnesiumon 86-64-8253Epoedehmr mass conc2.0 mg/dLNormal1.6-2.6 [facility] Medical CenterComment on above:Performed By: #### LACDS, TROPI, PRCAL, MYCM #### [address] [address] Mycoplasma Ab,IgMon 44-27-7476Jgqwnrbitw Ab,IgM0.22Normal<0.91W[facility]-Patterson Medical CenterComment on above:Result Comment: Reference Range: <=0.90 Negative 0.91-1.09 Equivocal >=1.10 PositivePerformed By: #### LACDS, TROPI, PRCAL, MYCM #### [address] [address] PTon 05-73-9773TZT Coag RelTime (PPP)1.0 {INR}NormalWright-Patterson Medical CenterComment on above:Result Comment: Therapeutic Range: Moderate Anticoagulant Intensity: INR = 2.0-3.0 High Anticoagulant Intensity: INR = 2.5-3.5Performed By: #### PT, CMPX, MG, CDP #### [address] [address] Prothrombin time (PT) Coag time (PPP)11.0 sNormal9.0-12.0W[facility] Medical CenterComment on above:Performed By: #### PT, CMPX, MG, CDP #### [address] [address] Troponinon 74-38-2061Ldyqbinb I.cardiac mass concNormalWright-Patterson Medical CenterComment on above:Result Comment: Reference Range: [...] information for diagnosis.Performed By: #### TROPI #### [address] [address] Troponin I.cardiac mass concng/mLNormal<0.03W[facility]terson Medical CenterComment on above:Result Comment: Troponin T results cannot be compared to Troponin-I results.Performed By: #### TROPI #### [address] [address] XR CHEST (2 VW)on 80-07-3428BG CHEST (2 VW)EXAMINATION: TWO VIEWS OF THE [...] Signed by: Noe Mitchell MD 08/16/18 Final resultNormalMerHenry Mayo Newhall Memorial HospitalLactate, Sepsison 08-15-2018 Lactic Acid,Sep Wbld3.5 mmol/LHigh0.5-1.9[facility] Medical CenterComment on above:Performed By: #### LACDS, TROPI, PRCAL, MYCM #### [address] [address] Lactic Acid, SepsisNOT REPORTEDNormal0.5-1.9[facility] Medical CenterComment on above:Performed By: #### LACDS, TROPI, PRCAL, MYCM #### [address] [address] Legionella Ag, Uron 64-46-3515Uitcpebvgf Ag, UrSpecimen Description .CLEAN CATCH URINE Special [...] levels of this test. Report Status FINAL 08/15/2018NoMercy HealthComment on above:Performed By: #### ULAG #### [employer] [address] [place] [address]27 Procalcitoninon 40-22-4342Vszkimd mass conc3.39 ng/mLHigh<0.09W[facility]-Patterson Medical CenterComment on above:Result Comment: Suspected Sepsis: [...] entered into the Change in Procalcitonin Calculator (www.rtstlo-mfb-tebhlvcemk.Mowdo) to determine the patient's Mortality Risk PrognosisPerformed By: #### LACDS, TROPI, PRCAL, MYCM #### [employer] [facility] [place], [place] [address] Strep pneum Ag,CSF/Uron 09-78-9798Puyhw pneum Ag,CSF/UrSpecimen Description .CLEAN CATCH URINE Special Requests NOT REPORTED Direct Exam NEGATIVE: Strep pneumoniae antigen not detected Report Status FINAL 08/15/2018Doctors HospitalComment on above:Performed By: #### SPAG #### [employer] [address] [place] [address] [phone] Troponinon 61-87-8900Wdmqznsz I.cardiac mass concng/mLNormal<0.03 [facility] Medical CenterComment on above:Result Comment: Troponin T results cannot be compared to Troponin-I results.Performed By: #### LACDS, TROPI, PRCAL, MYCM #### [employer] [address] [place], [place] [address] Troponin I.cardiac mass concNormalMercy University Hospital Comment on above:Result Comment: Reference Range: [...] By: #### LACDS, TROPI, PRCAL, MYCM #### [employer] [address] [place], [place] [phone] Urinalysison 04-23-7921Rlupttnso, UrineNegativeInvalid Interpretation CodeNEG;NEGATIVEMAGRUDER HOSPITALBlood, UrineModerate AbnormalNEG;NEGATIVEMAGRUDER HOSPITALInterpretation and review of laboratory resultsAbnormalInvalid Interpretation CodeMAGRUDER HOSPITALNitrite, UrineNegativeInvalid Interpretation CodeNEG;NEGATIVEMAGRUDER HOSPITALProtein, UrineNegativeInvalid Interpretation CodeNEG;NEGATIVE mg/dLMAGRUDER HOSPITALRBCs, Urine1 /HPFInvalid Interpretation Code0 - 5[facility] CENTERquamous Epithelial< 1Invalid Interpretation Code0 - 40 /HPFLutheran Hospital, bacteria in sedimentRare Invalid Interpretation CodeNS;RARE /HPFMAGRUDER HOSPITALUrine, characterHazyInvalid Interpretation CodeLutheran Hospital, colorYellowInvalid Interpretation CodeLutheran Hospital, glucose presenceNegativeInvalid Interpretation CodeNEG;NEGATIVE mg/dLLutheran Hospital, ketones presenceNegativeInvalid Interpretation Code NEG;NEGATIVE mg/dLMAGRUDER HOSPITALUrine, leukocyte esterase presenceSmallAbnormalNegativeMAGRUDER HOSPITALUrine, pH6.0 [pH] Invalid Interpretation Code4.5 - 8.0MAGRUDER HOSPITALUrine, specific gravity1.014 1Invalid Interpretation Code1.003 - 1.029MAGRUDER HOSPITALUrobilinogen, Urine< 2.0Invalid Interpretation Code<2 mg/dLMAGRUDER HOSPITALWBCs, Urine6 /HPFHigh0 - 5MAG[facility]UDER HOSPITALCBC and Differentialon 36-96-4368Pkotvvjdq4.7 %Invalid Interpretation CodeMAGRUDER HOSPITALBasophils0.1 K/mcLInvalid Interpretation Code0 - 0.2MAGRUDER HOSPITALEosinophils0.2 K/mcLInvalid Interpretation Code0 - 0.5 MAGRUDER HOSPITALErythrocytes (RBC)3.97 M/mcLInvalid Interpretation Code3.7 - 5.0MAGRUDER HOSPITALHematocrit (HCT)35.7 %Invalid Interpretation Code34.4 - 44.8 %[facility]UDER HOSPITALHemoglobin (HGB) 12.2 g/dLInvalid Interpretation Code11.6 - 15.4 g/dLMAGRUDER HOSPITALInterpretation and review of laboratory resultsAbnormalInvalid Interpretation CodeMAGRUDER HOSPITALLymphocytes2.1 K/mcLInvalid Interpretation Code1.0 - 3.7[facility]ICH30.6 pgInvalid Interpretation Code27.9 - 33.9 pgMAGRUDER HOSPITALMCHC34.0 g/dL Invalid Interpretation Code33.1 - 35.1 g/dLMAGRUDER HOSPITALMCV89.8 fLInvalid Interpretation Code82.6 - 98.9MAGRUDER HOSPITALMonocytes 0.6 K/mcLInvalid Interpretation Code0.1 - 0.6[facility] Neutrophils6.6 K/mcLInvalid Interpretation Code1.2 - 6.9MAGRUDER HOSPITALPlatelet mean volume (PMV)8.6 fLInvalid Interpretation Code7.0 - 10.6 [facility]OSPITALPlatelets196 K/mcLInvalid Interpretation Lfsc221 - 402OHGALION HOSPITALRDW-CA15.0 %High10 - 14.4 %[facility] CENTERegmented Neut69.6 %Invalid Interpretation CodeDEREK VILLE [address] suppressor/100 cells1.8 10*3/uLInvalid Interpretation CodeDEREK VILLE [address] suppressor/100 cells21.8 10*3/uLInvalid Interpretation Code [place] [address] suppressor/100 cells6.1 10*3/uLInvalid Interpretation CodeMAGRUDER HOSPITALWBC (Leukocytes)9.5 K/mcLInvalid Interpretation Code3.4 - 10.6MAGRUDER HOSPITALComprehensive Metabolic Panelon 63-47-3749Trjmdzf aminotransferase (ALT)18 U/LInvalid Interpretation Code14 - 65 U/[facility]OSPITALAlbumin3.1 g/dLLow3.2 - 5.2 g/dLMAGRUDER HOSPITALAlkaline phosphatase (ALP)78 U/LInvalid Interpretation Code40 - 140 U/[facility] HOSPITALAspartate aminotransferase (AST)7 U/LInvalid Interpretation Code0 - 45 U/[facility]OSPITALCalcium8.6 mg/dLInvalid Interpretation Code8.4 - 10.2 mg/dL [facility]OSPITALChloride106 mmol/LInvalid Interpretation Code98 - 108 mmol/[facility]OSPITALCO227 mmol/LInvalid Interpretation Code21 - 32 mmol/[facility]OSPITALCreatinine1.13 mg/dLHigh0.4 - 1.1 mg/dL [facility] HOSPITALeGFR (black)mL/min/{1.73_m2}Invalid Interpretation Codeml/min/1.73sq.[facility] Cleveland WesteGFR (non-black)54 mL/min/{1.73_m2}Low>60[facility]OSPITALGlucose113 mg/aESotl79 - 99 mg/dLMAGRUDER HOSPITALInterpretation and review of laboratory resultsAbnormalInvalid Interpretation CodeMAGRUDER HOSPITALPotassium 3.7 mmol/LInvalid Interpretation Code3.5 - 5.1 mmol/[facility]OS[facility]ITALProtein6.8 g/dLInvalid Interpretation Code6 - 8 g/dLFAIRFIELD MEDICAL CENTERodium140 mmol/LInvalid Interpretation Cdal255 - 145 mmol/[facility] HOSPITALUrea ukhrhvsu12 mg/dLInvalid Interpretation Code8 - 25 mg/dL [facility]OSPITALUrine, bilirubin presence0.4 mg/dLInvalid Interpretation Code0.3 - 1.2 mg/dLMAGRUDER HOSPITALLipaseon 04-62-0202Nrtawg604 U/LInvalid Interpretation Code73 - 393 U/[facility] Vital Signs Date TimeVital SignValuePerforming LnvtlglfpPaifmpwv80-35-0369 11:47-0400Body .5 cmJennie Van [employer] Work Phone: [place] [phone] 11:47-0400Body mass index (BMI) [Ratio]38.41 kg/b0CxddeqiJennie Van [employer] Work Phone: [place] [phone] 11:47-0400Body wqxnpa20.25 kgJecarlos Van [employer] Work Phone: [place] [phone] 11:47-0400Diastolic blood mm[Hg]Jennie Van [employer] Work Phone: [place] [phone] 11:47-0400Respiratory rate18 /minJesssandeep Van [employer] Work Phone: [place] [phone] 11:47-9842YaU4% (BldA) [Mass fraction]98 %Jennie Van [employer] Work Phone: [place] [phone] 11:47-0400Systolic blood etbsoxxa719 mm[Hg]Jennie Van [employer] Work Phone: [facility] CenterBvegrmcwdo37-26-9642 12:32-0400Body aoxvlm668.5 Bihristophmichael Sánchez DPM Work Phone: [facility] CenterQjfzdogdwi89-06-4353 12:32-0400Body mass index (BMI) [Ratio]38.41 kg/m1Xtcxftrdpyo Bohach DPM Work Phone: [facility] CenterYjdormabiu93-34-8355 12:32-0400Body rvcohl07.25 kgChristopher Bohach DPM Work Phone: [facility] CenterDtkzzxkscl51-21-6141 12:32-0400Diastolic blood vbwlwuhx00 mm[Hg]Christopher Bohach DPM Work Phone: [facility] CenterFvjaskeyjs21-84-0527 12:32-0400Heart undu524 /min Christopher Bohach DPM Work Phone: [facility] CenterCwsfyksyvr89-52-0994 12:32-0400Systolic blood ipwlxhzm098 mm[Hg]Christopher Bohach DPM Work Phone: [facility] CenterMfqjkcelka51-80-7922 16:21-0400Body jnylwl915.5 cmChristopher Bohach DPM Work Phone: [facility] CenterRbwoniumyr38-69-8635 16:21-0400Body mass index (BMI) [Ratio]38.41 kg/u2Nzpavlgkhwt Bohach DPM Work Phone: [facility] CenterYagkybojls64-41-9997 16:21-0400Body ecjsmt48.25 kgChristopher Bohach DPM Work Phone: [facility] CenterUlhkcbjiqd19-82-6392 16:21-0400Diastolic blood wushhmfi89 mm[Hg]Christopher Bohach DPM Work Phone: [facility] CenterSetlmfblll21-18-3045 16:21-0400Heart rate89 /min Christopher Bohach DPM Work Phone: [facility] CenterMgujgtsoga91-22-3024 16:21-0400Systolic blood qvyrpied061 mm[Hg]Christopher Bohach DPM Work Phone: [facility] CenterTvrqwbvsil80-94-7925 23:15-0400Diastolic blood hqatkrzb75 mm[Hg]Seveor Case MD Work Phone: [phone] [facility] HospitalArrogene [facility] HospitalFzvgiv87-80-2452 23:15-0400Heart rate74 /minSevero Case MD Work Phone: [phone] [facility] HospitalArrogene [facility] HospitalAjxocf89-18-0372 23:15-0400 Respiratory rate16 /minSevero Case MD Work Phone: [phone] [facility]07-01-2025 23:15-7930PuN6% (BldA) [Mass fraction]97 %Severo Case MD Work Phone: [phone] [facility]07-01-2025 23:15-0400Systolic blood uvzfetsw912 mm[Hg]Severo Case MD Work Phone: [phone] [facility]07-01-2025 21:24-0400Body dnoyej442.4 cmSevero Case MD Work Phone: [phone] [facility]07-01-2025 21:24-0400Body mass index (BMI) [Ratio]41.99 kg/u6WyjxtpSevero Case MD Work Phone: [phone] [facility] HospitalArrogene [facility] HospitalOzrjmx64-43-1658 21:24-0400Body .52 kgSevero Case MD Work Phone: [phone] [facility]07-01-2025 21:15-0400Body syqfvxqlalu17 [degF]Severo Case MD Work Phone: [phone] [facility]06-10-2025 12:02-0400Body emrlrr664.5 cmLynn Block MD Work Phone: [facility] CenterDhqrpqeeck71-34-1384 12:02-0400Body mass index (BMI) [Ratio]38.41 kg/m2Lynn Block MD Work Phone: [facility] CenterAmtgrhskki88-85-5801 12:02-0400Body forfbp24.25 kgLynn Block MD Work Phone: [phone] [place], [place] [address]Ubquleeygy61-78-3881 13:00-0500Body .5 cmLynn Block MD Work Phone: [facility] CenterCyjhbvnfwl76-21-9379 13:00-0500Body mass index (BMI) [Ratio]38.41 kg/m2Lynn Block MD Work Phone: [facility] CenterNyjfuermtg51-09-4090 13:00-0500Body hvvpqo62.25 kgLynn Block MD Work Phone: [phone] [place], [place] [address]Nmskzfygkm78-48-2053 11:31-0500Body ljkifm620.5 cmFealli Yusra BALER Work Phone: [phone] [place], [place] [address]Hozxnscnck71-01-9891 11:31-0500Body mass index (BMI) [Ratio]37.9 kg/y3Rjfrjqj Megannagel [employer]ER Work Phone: [phone] [place], [place] [address]Pmbmpxtdpq49-56-3198 11:31-0500Body rffmbu43.98 kgFemadelynia Megannagel [employer] Work Phone: [phone] [place], [place] [address]Anmnovgzbl21-43-0888 11:31-0500Diastolic blood luwoavgg73 mm[Hg]Fozia Megannagel [employer] Work Phone: [phone] [place], [place] [address]Fikgflmabd77-85-0118 11:31-0500Systolic blood jglhjmmo367 mm[Hg]Fozia Megannagel BALER Work Phone: [phone])[phone] [place], [place] [address]Cftgfbwhwd16-38-6799 09:42-0500Body upvsiq519.5 Jimmy Adair MD Work Phone: 1(110) [phone]uulqn88-48-1095 09:42-0500Body mass index (BMI) [Ratio]38.23 kg/m2Dimas Adair MD Work Phone: 1(308) [phone]figan95-07-3767 09:42-0500Body utgovebsgrc11.29 [degF]Dimas Adair MD Work Phone: 1(213) [phone]yakup62-69-9784 09:42-0500Body .8 kgDimas Adair MD Work Phone: 1(315) [phone]qxpsg44-84-6824 11:30-0500Body wrfoeg153.5 cm Fozia Meng BALER Work Phone: [facility] CenterLqbpncatjy26-84-1720 11:30-0500Body mass index (BMI) [Ratio]39.91 kg/h1SznbqrmFozia Meng BALER Work Phone: [facility] CenterTxhrafiufi90-22-1879 11:30-0500Body dyevqe94.97 kgFozia Meng BALER Work Phone: [facility] CenterOhpqqxavqn35-89-3858 11:30-0500Diastolic blood zyvovipn08 mm[Hg]Fozia Meng BALER Work Phone: [facility] CenterPjbclseqer08-32-9658 11:30-0500Systolic blood wanztuer156 mm[Hg]Fozia Meng BALER Work Phone: [facility] CenterFwuhqtnapz28-53-7053 10:09-0400Body .5 cmTrace Casas MD Work Phone: [facility] CenterJtqbikmwqi02-79-3922 10:09-0400Body mass index (BMI) [Ratio]38.96 kg/v3VohpunbTrace Casas MD Work Phone: [facility] CenterOyekgryjdv32-60-5598 10:09-0400Body .62 kgTrace Casas MD Work Phone: [facility] CenterIigazkvfgx60-25-3687 10:09-0400Diastolic blood mm[Hg]Trace Casas MD Work Phone: [facility] CenterWbvvcyacbp72-32-5317 10:09-0400Systolic blood icfjokeh929 mm[Hg]Trace Casas MD Work Phone: [facility] CenterAyowrohqso88-71-1108 14:20-0400Body tfykyn359.5 cmNicole Ginger DO Work Phone: [facility]OM[facility]-SullivanLauoonbrtm14-40-2224 14:20-0400Body mass index (BMI) [Ratio]38.41 kg/k0Teespl Ginger DO Work Phone: [facility]-SullivanGdmdxeznwd33-73-5390 14:20-0400Body .25 kgNicole Ginger DO Work Phone: [facility]-SullivanFbukvhngyt66-73-1321 14:20-0400Diastolic blood tfaggyls99 mm[Hg]Cheryl Ginger DO Work Phone: [facility]-SullivanCrgjuuljhy02-98-8764 14:20-0400Heart rate83 /min Cheryl Ginger DO Work Phone: [facility]OM[facility]-SullivanVwivruajez25-28-0073 14:20-7096XbN5% (BldA) [Mass fraction]97 %Cheryl Ginger DO Work Phone: noMissouri [facility] Hospital-SullivanFboznwfhbc78-52-9268 14:20-0400Systolic blood zbigvybs336 mm[Hg]Cheryl Ginger DO Work Phone: [facility] CenterWtijnxpvwk97-83-5479 14:44-0400Body temperature 98.49 [degF]MASSIMO Shook DPM Work Phone: 1(956) [phone]exylp34-65-4076 14:44-0400Diastolic blood demxjhtj20 mm[Hg]MASSIMO Shook DPM Work Phone: 1(645) [phone]cgphk45-49-6356 14:44-0400Heart rate94 /minMASSIMO Shook DPM Work Phone: 1(643) [phone]nrwtg39-95-6136 14:44-0400Systolic blood pressure 139 mm[Hg]MASSIMO Shook DPM Work Phone: 1(219) [phone]hvvmj43-06-5720 09:36-0400Body gijygc935.5 cmMwhz Education Work Phone: [place]09-28-2022 09:36-0400Body mass index (BMI) [Ratio]38.67 kg/m2Mwhz Education Work Phone: [place]09-28-2022 09:36-0400Body .89 kgMwhz Education Work Phone: bon [facility]12-13-2020 20:53-0500BMI (Body Mass Index)39.32 kg/o0KeiwcxpljjpThelma, [place]12-13-2020 20:53-0500Body Oqnpdwtzmct77.5 [degF][place] 09-16-2020 20:53-0500Body wuimpt82.52 kgThelma, [place] 09-16-2020 20:53-0500BP Bvzbbjfge495 mm[Hg][place] 09-16-2020 20:53-0500BP Fqbnfuhb919 mm[Hg][place] 09-16-2020 20:53-5425Jbfjno443.5 [place], [place] 09-16-2020 20:53-0500Pulse (Heart Rate)99 /minThe[place], [place]12-13-2020 20:53-0500Pulse Fokmherb43 %[place] 09-16-2020 20:53-0500Respiratory Rate18 /minPen[facility] [place] Encounters Encounter DateEncounter TypeCare ProviderFacilityStart: 08-02-2025 End: 29-93-7948lxagmgntqcTOIWMAshtabula County Medical Centertart: 08-02-2025 End: 20-92-3643Paaiagpavt hospital visit by physicianHudson Valley Hospitaluzair Laboratory Schedule [facility] LaboratoryComment on above:Stage 3a chronic kidney disease (HCC); Pre-diabetesStart: 07-29-2025 End: 65-45-8501VybhmqFqtjczvbujSara Allen NP Work Phone: NOPQ [place] NeurologyComment on above:Idiopathic progressive polyneuropathy; Non-seasonal allergic rhinitis due to pollenStart: 07-21-2025 End: 63-52-0438ullktipbasIUFWOSEYAllendale County Hospitaltart: 07-21-2025 End: 01-67-5955Rcbngstxkz hospital [facility]St[facility] Schedule [facility] LaboratoryComment on above:ArrivedStart: 06-12-2025 End: 81-58-9356mwwluhwwncNEGPRKRQDO MILLERMercy Willard HospitalStart: 06-12-2025 End: 34-08-1827Tyghwjcece hospital visit by physicianKendall Laboratory Schedule MWHZ LaboratoryComment on above:ArrivedStart: 05-24-2025 End: 09-02-7188Xqosng Photoblogheet1spire [employer]ESS[employer] Work Phone: noms NEUROLOGYStart: 05-24-2025 End: 60-97-5971Iiyxgz Photoblogheet1spire [employer] PRESSER Work Phone: noms NEUROLOGYStart: 05-24-2025 End: 62-23-3747aievndjiaqOZQHTAO SPRINGERCameron Regional Medical Center AvailableStart: 05-24-2025 End: 28-28-0382Ujkuwi outpatient visit 25 minutesJeSincroPool [employer]EL[employer] WEB DESIGNERSamson[employer] Work Phone: noms Brenda NeurologyComment on above:BUCK (obstructive sleep apnea) (Primary Dx); Cervical paraspinal muscle spasm; Cervical radiculopathyStart: 05-23-2025 End: 82-11-5512Mxrylzrxn encounterMark Trista Block MD Work Phone: noms [facility] 111Start: 05-15-2025 End: 64-60-8368grnfzxvfzfKYCGQ D [facility] Centertart: 05-15-2025 End: 50-64-5792Ykcedqeffv hospital visit by physicianKendall Laboratory Schedule MWHZ LaboratoryComment on above:ArrivedStart: 04-20-2025 End: 83-09-4817Iqrivj flowsTeresa Sánchez DPM Work Phone: noms WWW PODIATRYStart: 04-20-2025 End: 40-88-5393Jglwlname Sánchez DPM Work Phone: noms WWW PODIATRYStart: 04-20-2025 End: 95-00-3831Uiiobe outpatient visit 25 minutesRobbin Sánchez DPM Work Phone: noms [facility] PODIATRYComment on above:MRSA (methicillin resistant staph aureus) culture positive (Primary Dx); Right foot pain; Skin ulcer of toe of right foot with fat layer exposed (HCC); Idiopathic progressive polyneuropathy; Infection of toe; Charcot arthropathy of midfoot; Ulcer of left foot, limited to breakdown of skin (HCC); Closed nondisplaced fracture of second metatarsal bone of right foot, initial encounterStart: 04-20-2025 End: 95-56-9367tmoxvejykkBKYTWSVHQHS J BOHACHNot AvailableStart: 04-14-2025 End: 68-73-6604ipipnrpsocFRWYRDank Powell HospitalStart: 04-14-2025 End: 24-76-7205Yeteuimyte hospital visit by Paola Adam MD Work Phone: mZ LaboratoryComment on above:Hyperglycemia; Mixed hyperlipidemia; Chronic renal impairment, stage 3a ([facility])Start: 04-12-2025 End: 76-28-9936Uxtpjvxqn Result EncounterChriskyle Sánchez DPM Work Phone: noms External Department UnsolicitedStart: 04-12-2025 End: 14-93-8444Itadctymf Result EncounterChjorge Sánchez DPM Work Phone: noms External Department UnsolicitedStart: 04-11-2025 End: 93-60-6358Ecpphuxoz Result EncounterChjorge Sánchez DPM Work Phone: noms External Department UnsolicitedStart: 04-11-2025 End: 53-83-8190Rswlvuxfj Result EncounterChriskyle Sánchez DPM Work Phone: noms External Department UnsolicitedStart: 04-11-2025 End: 82-32-9067yfolzrvgrgLEQXVPRKUSMWiley Powell HospitalStart: 04-11-2025 End: 94-84-3760Jkcedyyypk hospital visit by Anisha Sánchez DPM Work Phone: [facility] HospitalComment on above:Pain in right footStart: 04-06-2025 End: 52-72-8414Msloyz outpatient visit 25 minutesChjorge Sánchez DPM Work Phone: noms WWW PODIATRYComment on above:Right foot pain (Primary Dx); Skin ulcer of toe of right foot with fat layer exposed (HCC); Infection of toe; Idiopathic progressive polyneuropathy; Generalized edemaStart: 04-06-2025 End: 43-13-3085amfyrjmkfrVVMXHIIXYLT J BOHACHNot AvailableStart: 04-06-2025 End: 02-26-5594Zucqvw flowsTeresa Sánchez DPM Work Phone: noms WWW PODIATRYStart: 04-06-2025 End: 64-62-7767Nuypai Batsheva Sánchez DPM Work Phone: noms WWW PODIATRYStart: 04-04-2025 End: 38-22-5396Vyvcdxqnk department patient visitSevero Csae MD Work Phone: [facility] Emergency DepartmentComment on above: Pressure injury of deep tissue of toe, unspecified laterality (Primary Dx)Start: 03-14-2025 End: 46-87-1642Hhsnhvame Block MD Work Phone: noms NEUROLOGYStart: 03-14-2025 End: 58-91-9364Vkffkiame Block MD Work Phone: noms NEUROLOGYStart: 03-14-2025 End: 01-49-0819Ertyio outpatient visit 25 minutesLynn Block MD Work Phone: noms SWS NEUR BComment on above:BUCK (obstructive sleep apnea) (Primary Dx); Claustrophobia ; HypersomniaStart: 03-14-2025 End: 36-95-6730xohgdvfbgdEWXN D BEJNot AvailableStart: 02-15-2025 End: 67-44-4490ewyvshfhjwXJKVR Kindred Healthcaretart: 02-15-2025 End: 71-48-0016Czvjtbjubp hospital visit by Paola Adam MD Work Phone: [facility] MammographyComment on above: Encounter for screening mammogram for malignant neoplasm of breastStart: 01-72-8252sxxxycqwniJwvwxfpc:FTMCStart: 02-13-2025 End: 56-61-1514Yaerax Therese Casas MD Work Phone: noms NEUROLOGYStart: 02-13-2025 End: 56-82-5728Rfmwix Therese Casas MD Work Phone: noms NEUROLOGYStart: 02-13-2025 End: 27-50-9475gxxagqqpsxDNMWWHC W BAUERNot AvailableStart: 02-13-2025 End: 49-63-8066Quoevd outpatient visit 25 minutesTrace Casas MD Work Phone: noms SWS NEURComment on above:Charcot's joint, left ankle and foot (Primary Dx); Gait instability; Idiopathic progressive polyneuropathy; Intractable 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 (CMS/HCC); Restless legs; Carpal tunnel syndrome, bilateral; BUCK (obstructive sleep apnea)Start: 12-06-2024 End: 71-03-9316Wwifuz Magen Block MD Work Phone: noms NEUROLOGYStart: 12-06-2024 End: 35-72-7423Ljlabv Magen Block MD Work Phone: noms NEUROLOGYStart: 12-06-2024 End: 18-22-3375htddcsyjixGVKA D BEJNot AvailableStart: 12-06-2024 End: 23-33-4369Wiaxex outpatient new 60 minutesLynn Block MD Work Phone: noms SWS NEUR BComment on above:BUCK (obstructive sleep apnea) (Primary Dx); BUCK on CPAP; Claustrophobia (CMS/HCC)Start: 11-14-2024 End: 23-05-3033Opnksk flowsheetFelicia C Windnagel BALER Work Phone: noms BM NEUROLOGYStart: 11-14-2024 End: 01-11-0820Qtdayk flowsheetFelicia C Windnagel BALER Work Phone: noms BM NEUROLOGYStart: 11-14-2024 End: 40-39-1740Lvamsy outpatient visit 25 minutesFelicia Jamila Guzmannagel BALER Work Phone: noms SWS NEURComment on above:BUCK on CPAP (Primary Dx); Idiopathic progressive polyneuropathy; Restless legs; Intractable 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 (CMS/HCC) Start: 11-14-2024 End: 51-26-7024vmonysjdwnNTHIYLZ C JAIMEEGELNot AvailableStart: 11-14-2024 End: 96-17-6986gftjyqeqoqJYHAD BACKUniversity Hospitals TriPoint Medical Centertart: 11-14-2024 End: 84-60-7571Penuusaebk hospital visit by Paola Adam MD Work Phone: mZ LaboratoryComment on above:Pre-diabetes; Mixed hyperlipidemiaStart: 11-02-2024 End: 76-10-8066Ubttrsekt encounterJanel Allen BALER Work Phone: noms [facility] NEURO 210Start: 10-11-2024 End: 90-26-9768Lagcvu outpatient new 45 minutesBilrubens Adam MD Work Phone: [facility] Throat PhysiciansComment on above:Thyroid nodule (Primary Dx); Lipoma of neckStart: 10-11-2024 End: 27-93-6150aubvqbyxhhRGLTW BACKOhio Health AmbulatoryStart: 10-05-2024 End: 76-57-1000VotqijBxozpus W Bauer MD Work Phone: noms SWS NEURComment on above:Idiopathic progressive polyneuropathy; Non-seasonal allergic rhinitis due to pollenStart: 09-14-2024 End: 29-61-5568Cuobyn flowsheetFelicia C Megannashena BALER Work Phone: noms BM NEUROLOGYStart: 09-14-2024 End: 94-93-1911Ueicwk flowsheetFemadelynia Jamila Meng BALER Work Phone: noms BM NEUROLOGYStart: 09-14-2024 End: 20-00-7715Djefjqexn encounterFelicvirgen Meng BALER Work Phone: noms [facility] NEURO 210Start: 09-14-2024 End: 57-91-1212Tveeht outpatient visit 25 minutesFelicvirgen Meng BALER Work Phone: noms SWS NEURComment on above:BUCK on CPAP (Primary Dx); Idiopathic progressive polyneuropathy; Intractable 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 (CMS/HCC); Restless legs; Bilateral carpal tunnel syndromeStart: 09-14-2024 End: 43-76-1794nsnckgircsNAGVDAH Jamila YUSRANot AvailableStart: 09-09-2024 End: 65-63-3770Rvgvpfcvkc OrdersFelicia Bangdanbury hospitalt [facility] Hospitaleal ENT AshlandComment on above:Thyroid nodule (Primary Dx)Start: 09-06-2024 End: 87-04-6419ljlrrspgtmQESQTHolzer Medical Center – Jacksontart: 09-06-2024 End: 36-34-6112Xazlvychsy hospital visit by physicianFelipe Adam MD Work Phone: [facility] UltrasoundComment on above: Thyroid noduleStart: 08-11-2024 End: 40-09-7007VznkosGlntsoa W Bauer MD Work Phone: noms SWS NEURComment on above:Idiopathic progressive polyneuropathy; Non-seasonal allergic rhinitis due to pollenStart: 06-10-2024 End: 12-73-6218Rbawin Therese Casas MD Work Phone: noms BM NEUROLOGYStart: 06-10-2024 End: 38-35-5196Cjmyoh Therese Casas MD Work Phone: noms BM NEUROLOGYStart: 06-10-2024 End: 11-78-1737Jzdybr outpatient visit 25 minutesTrace Casas MD Work Phone: noms [facility] NEURComment on above:Idiopathic progressive polyneuropathy (Primary Dx); Bilateral carpal tunnel syndrome; Restless legs; Intractable 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 (CMS/HCC) Start: 06-10-2024 End: 75-35-6563sbjpsnvvurDLQZWTT W BAUERNot AvailableStart: 05-10-2024 End: 23-41-2924Dpmivjzvic hospital visit by Paola Adam MD Work Phone: mwhZ LaboratoryStart: 05-10-2024 End: 86-32-6451Bbysnn outpatient visit 40 minutesNicole Ginger DO Work Phone: noms WNZ NEUROComment on above:BUCK (obstructive sleep apnea); Hypersomnia; Snoring; Class 2 obesity due to excess calories with body mass index (BMI) of 38.0 to 38.9 in adult, unspecified whether serious comorbidity presentStart: 02-15-2024 End: 31-68-3205thbhtzfllvNjsvm D HighlanderFacility:[facility] Hospitaltart: 02-15-2024 End: 65-34-3561ajreofmznwOBT [facility] Work Phone: [facility] Work Phone: Start: 02-15-2024 End: 87-77-5846Gvyptrff ReferredDP [facility] Work Phone: [facility]-LAB Path Spec [place] HospStart: 06-15-2023 End: 84-47-0695Bjefnrhvfb hospital visit by Paola Adam MD Work Phone: mWHZ LaboratoryComment on above:Mixed hyperlipidemia Start: 38-55-2465teuiotunpmUYLLMOhioHealth Pickerington [facility] Hospital PhysiciansStart: 03-03-2023 End: 81-38-7865Ywrjgu outpatient new 45 minutesMASSIMO Shook DPM Work Phone: [facility] Physicians GroupComment on above:Charcot arthropathy of midfoot (Primary Dx); Gastrocnemius equinus, unspecified laterality; Foot pain, leftStart: 02-11-2023 End: 65-80-6557ryssbkhjwaKVHWL D HIGHLANDERFacility:E5Sjymp: 02-05-2023 End: 11-94-2095Hvdeclrmru hospital visit by Paola Adam MD Work Phone: mZ LaboratoryComment on above:Pelvic pressure in femaleStart: 02-04-2023 End: 90-19-3055tzczdtcrezLNGFM D [facility] CITY HOSPITALANDERFacility:N2Lflye: 01-28-2023 End: 94-11-5944nmbxnjqyxvGPCNC D [facility] CITY HOSPITALANDERFacility:R9Zgtij: 01-06-2023 End: 80-88-7949Wxsxifnlq department patient visitMontefiore New Rochelle Hospitaltart: 07-09-2022 End: 31-42-2491Xqzswuvcnt hospital visit by JOE Rod RD Work Phone: mZ Diet and NutritionComment on above:ArrivedStart: 07-02-2022 End: 97-38-3549Tylhezrxqe hospital visit by Efren Diabetes Education Work Phone: mWHZ Diabetic EducationStart: 06-25-2022 End: 21-82-8030Uvomcrxytz hospital visit by physicianTennille Additional [facility] RadiologyComment on above:Foreign body (FB) in soft tissue Start: 06-25-2022 End: 93-29-7235Lyrrvuijhl hospital visit by [facility] Mri Scanner [facility] Hospitalard MRIComment on above:Pain of foot, unspecified laterality; Closed nondisplaced fracture of second metatarsal bone of left foot, initial encounter; Closed nondisplaced fracture of lateral cuneiform of left foot, initial encounterStart: 05-27-2022 End: 04-20-8877Zxsprfzhdr hospital visit by physicianH[facility] Hospital Ultrasound Room [facility] UltrasoundComment on above:Neck massStart: 04-28-2022 End: 53-19-4203jvlbxsbfwwFGTWOR S GOINESMercy Copper Springs Hospitaltart: 04-28-2022 End: 02-04-2230Owksetlnhh hospital visit by Paola Adam MD Work Phone: MALZ LABORATORYComment on above:Acute cystitis with hematuriaStart: 04-12-2022 End: 71-54-0391Klhcyinsul hospital visit by Paola Adam MD Work Phone: mWHZ LaboratoryComment on above:Fatigue, unspecified type; Encounter for screening for HIV; Mixed hyperlipidemia; Hyperglycemia; Chronic renal impairment, stage 3b (HCC)Start: 02-05-2022 End: 16-95-4133Jpwtxwycqb hospital visit by Kaylah PAYTON Physical TherapyStart: 02-04-2022 End: 25-21-0573Beintjg encounter procedureWright-Pat[facility]tr-MRI Strub RdStart: 02-03-2022 End: 65-44-2639Hvjiaglgok hospital visit by Bradley Johnson Physical TherapyStart: 01-29-2022 End: 47-07-8883Mxxcbsuvzr hospital visit by Ivan VIGIL Physical TherapyComment on above:ArrivedStart: 01-27-2022 End: 83-03-1545Vsrojzfsbj hospital visit by Kaylah PAYTON Physical TherapyComment on above:ArrivedStart: 01-24-2022 End: 45-71-7024Vjcjqhifzr hospital visit by Jojo GREENZ Physical TherapyComment on above:ArrivedStart: 01-22-2022 End: 13-42-1555Wxyvpapsby hospital visit by Ivan VIGIL Physical TherapyStart: 01-17-2022 End: 16-01-8413Atimphvdet hospital visit by Ivan VIGIL Physical TherapyComment on above:ArrivedStart: 01-13-2022 End: 99-86-9945Uztqjtvsyk hospital visit by Kaylah PAYTON Physical TherapyStart: 01-03-2022 End: 90-45-7245Ltlucecebo hospital visit by Ivan Rangel PTAMWHZ Physical TherapyComment on above:ArrivedStart: 12-31-2021 End: 34-30-8729Jvfwpcabjd hospital visit by Renetta Herman OTMWHUzair Occupational TherapyComment on above:ArrivedStart: 12-30-2021 End: 12-49-2474Rvstujzqla hospital visit by Renetta Herman OTROCHESTER REGIONAL HEALTHUzair Occupational TherapyComment on above:ArrivedStart: 12-23-2021 End: 24-71-2833Uxaclqwegh hospital visit by Renetta Herman O[facility]OC[facility] HEALTHUzair Occupational TherapyComment on above:ArrivedStart: 11-29-2021 End: 37-63-7270lrffltvfkqZRSYVPiedmont Fayette Hospitaltart: 08-01-2021 End: 23-13-1575Wpkhwxzcbv hospital visit by Paola Adam MD Work Phone: mE LaboratoryComment on above:Frequent UTI; Urinary urgency; Urinary frequencyStart: 07-11-2021 End: 98-81-8574Ncosdmzduq hospital visit by Paola Adam MD Work Phone: mwhz LaboratoryComment on above:Frequent UTI; Urinary urgency; Urinary frequencyStart: 06-11-2021 End: 24-94-1166Sczidbaqoz hospital visit by Paola Adam MD Work Phone: mwhz LaboratoryComment on above:Acute cystitis with hematuria; Recurrent UTIStart: 05-27-2021 End: 00-29-4231Zklawjxqaj hospital visit by Paola Adam MD Work Phone: mwhz LaboratoryComment on above:Difficult or painful urinationStart: 05-20-2021 End: 18-01-0737Vxuenysrzu hospital visit by Paola Adam MD Work Phone: mwhz LaboratoryStart: 04-13-2021 End: 00-92-9320Tfiauftbsc hospital visit by Paola Adam MD Work Phone: mwhz LaboratoryComment on above:Acute cystitis with hematuriaStart: 02-13-2021 End: 89-66-9595Ugwhfpjjze hospital visit by physicianHudson Valley Hospital Andriy19 Pat Screening ScheduleMWHZ PRE ADMITComment on above:Suspected COVID-19 virus infectionStart: 01-21-2021 End: 30-57-3322Rbcpbhcsyi hospital visit by physicianHudson Valley Hospital Covid19 Pat Screening ScheduleMWHZ PRE ADMITComment on above:Viral illnessStart: 11-15-2020 End: 56-16-8145Ysardmrqmi hospital visit by physicianHudson Valley Hospital Covid19 Pat Screening ScheduleMWHZ PRE ADMITComment on above:ArrivedStart: 09-16-2020 End: 73-68-9987Klfdalxzg department patient visitChjorge Rooney Work Phone: [facility] EDComment on above:Acute thoracic back pain, unspecified back pain laterality (Primary Dx)Start: 08-24-2020 End: 91-29-3289Breraofiqx hospital visit by physicianDiamond Grove Centerrubens AdamROCHESTER REGIONAL HEALTHUzair Laboratory Comment on above:Epidural abscessStart: 08-08-2020 End: 24-41-5051Fksxjposoq hospital visit by physicianDiamond Grove Centerrubens AdamROCHESTER REGIONAL HEALTHUzair Laboratory Comment on above:SOB (shortness of breath)Start: 07-24-2020 End: 65-40-5458Lbrmjixllf hospital visit by physicianAdventhealth Westchase Er BackROCHESTER REGIONAL HEALTHUzair Laboratory Comment on above:Epidural abscessStart: 06-07-2020 End: 38-29-4133Pjnqhkgmli hospital visit by physicianAdventhealth Westchase Er BackST. [facility] Start: 05-25-2020 End: 85-80-9104Wmxzyccvzo hospital visit by physicianAdventhealth Westchase Er BackROCHESTER REGIONAL HEALTHUzair Laboratory Comment on above:Vitamin D deficiency; Mixed hyperlipidemia; HyperglycemiaStart: 12-14-2019 End: 96-68-8418Mibtwikezn hospital visit by physicianAdventhealth Westchase Er BackROCHESTER REGIONAL HEALTHUzair Laboratory Comment on above:MRSA (methicillin resistant Staphylococcus aureus) septicemia (HCC)Start: 09-24-2019 End: 89-78-2671Cgivlmlvvm hospital visit by Paola Adam MD Work Phone: [facility] HEALTHZ LaboratoryStart: 09-12-2019 End: 55-29-7513Tplyrxlibg hospital visit by physicianBilly Back MD Work Phone: MWHZ SLEEP LABStart: 08-29-2019 End: 60-14-2597Mmtuqryxup hospital visit by [facility] Schedule [facility] SLEEP LABComment on above:ArrivedStart: 07-28-2019 End: 37-26-6635Dkkzymtkch hospital visit by Kong Campos [facility] RadiologyComment on above:MRSA (methicillin resistant Staphylococcus aureus) septicemia (HCC)Start: 06-17-2019 End: 34-15-7588Bwlfmwubph hospital visit by Paola Pappas Laboratory Comment on above:MRSA (methicillin resistant Staphylococcus aureus) infection Start: 02-03-2019 End: 51-12-8033Pjbvoex encounter procedureMERIT [facility] Start: 02-03-2019 End: 66-81-8128Vksovzvlvz hospital visit by Nilesh Casas Work Phone: [facility] MRIComment on above: Brachial neuritis; Peripheral nerve disorder; Spasm of muscleStart: 11-10-2018 End: 39-57-7640Feybsyb encounter procedureAndrey EarlyFacility:[facility] Start: 10-18-2018 End: 02-00-1591Aaaatwk encounter procedureAndrey Early Work Phone: [facility] HospitalStart: 84-67-2020Wruvyit encounter procedureLuis NiecyiFacility:HopeStart: 10-03-2018 End: 46-77-0033Ymtffke encounter procedureFelipe [facility] HospitalStart: 09-20-2018 End: 22-49-8094Rlektpg encounter procedureLuis E NiecyiFacility:[facility] HospitalStart: 24-51-2226Oejdxjd encounter procedureFacility:9509Start: 35-55-1786Dkgeepi encounter procedureLUIS E Evens [facility] HospitalStart: 09-06-2018 End: 16-31-2003Xnbimua encounter procedureHistor[facility] Start: 08-31-2018 End: 88-45-6742Ptrjzus encounter procedureHistorical [facility] REG Start: 08-27-2018 End: 40-43-4743Tvutfqb encounter procedureLuis E NiecyiFacility:[facility] HospitalStart: 87-61-2242Qrbekft encounter procedureFacility:9509Start: 08-15-2018 End: 45-22-3399Spjtydekae and management of inpatientWABRENDA Schafer [facility] Centertart: 04-02-2018 End: 37-59-3877Uwaeftv encounter procedureJosophie CalderonFacility:HopeStart: 11-58-0621Omdhocp encounter procedureMelmalcom Jose ManuelFacility:[facility] Hospitalart: 02-04-2018 End: 07-16-0850MqpehpxnljUzflmb Trista [facility]shanyu [facility] HospitalStart: 31-49-1327Rybypdv encounter procedureTERBrock GRANT MEMORIAL HOSPITALanuelChilton Memorial Hospitaltart: 11-17-2017 End: 14-98-4412EtonjyrxebOxlgwfjm Rings Work Phone: [facility] Hospitaltart: 10-20-2017 End: 48-13-9875DefafkcmddUJTMSHVDAKSHA Nevarez [facility] Hospitaltart: 47-18-7804Uqnoqxc encounter procedureTERMercy Health Willard Hospitaltart: 61-93-5053OuvglmunlpSVMXWSGallup Indian Medical Centertart: 10-09-2017 End: 67-01-4549Mqwczve encounter procedureTERMartins Ferry Hospital Start: 84-08-1707Vicilwf encounter procedureTERMartins Ferry Hospital Start: 61-78-4012SacnvtorcuNBAZAOGallup Indian Medical Centertart: 03-31-2017 End: 13-90-6835PenqytkxbwUMEFTMUCHASE [facility] Procedures DateProcedureProcedure DetailPerforming ClinicianStart: 83-63-7830Jlyvb metabolic panel calcium totalBilly Back Work Phone: start: 52-28-4768Smkkz metabolic panel calcium total Damon PROCTOR Work Phone: Start: 24-32-8611K-reactive proteinKiharshal Segura PA Work Phone: Start: 89-72-9420Mhudy function panelJadanny Samson BALER-C Work Phone: Start: 29-71-3932Rmfqz metabolic panel calcium total [facility] Hospitaljoanie DPM Work Phone: Start: 36-80-8593C-reactive proteinPeter D [facility] DPM Work Phone: Start: 70-57-5929EZGIOQTZME CHECKPeter D [facility] DPM Work Phone: Start: 15-56-3383Cjocczgebpklf metabolic panelBilly Back Work Phone: start: 79-78-0075Uaqib panelBilly Back Work Phone: start: 49-17-9038NFL FOOT RIGHT W WO CONTRAST Robbin Sánchez DPM Work Phone: Start: 30-62-5609Sdg lower extrem oth/thn jt w/o & w/contr matrChristopher Adam Sánchez DPM Work Phone: Start: 62-23-8607Ypkpo of urea nitrogen quantitative Robbin Sánchez DPM Work Phone: Start: 65-97-3354OENM BUN + CREATININEChristopher Adam Sánchez DPM Work Phone: Start: 07-15-4552Xhyetjlslv examination foot 2 views Robbin Sánchez DPM Work Phone: Start: 04-04-2025 End: 91-73-4017Zkvew toe minimum 2 viewsSevero Case MD Work Phone: Start: 27-05-3721W-reactive proteinSevero Case MD Work Phone: Start: 04-04-2025 End: 46-30-3395Ksatrzjkdtp peptideSevero Case MD Work Phone: Start: 66-03-5452Gvaourmnrxmnm metabolic panelBilly Back Work Phone: start: 73-71-4771Posba Jignesh Adam MD Work Phone: start: 79-90-8090Om soft tissue head & neck real time ramesh Adam MD Work Phone: start: 12-25-8398Zrcro function panelScatrina Forbes MD Work Phone: Start: 01-39-9498Psswq dip stick/tablet rgnt auto w/o microscopySwdomenica Forbes MD Work Phone: Start: 99-64-0077Ouroi Jignesh Adam MD Work Phone: start: 53-39-7650Ckwoprmb Susan Cassidy DPM Work Phone: Start: 34-29-1482Juk prim src wet mount nfct agtLuis Mclean PA-C Work Phone: Start: 18-64-0174Qbf lower extrem oth/thn jt w/o & w/contr matrChristopher J Bohbobby DPM Work Phone: Start: 57-97-5422Pwtjynxezd examination foot 2 views Micky Lauren MD Work Phone: Start: 81-39-3228Bb soft tissue head & neck real time ramesh Adam MD Work Phone: start: 30-06-1483Cmphnyteqrcxw metabolic Jignesh Adam MD Work Phone: start: 68-72-4957Bolou Jignesh Adam MD Work Phone: start: 57-22-7952SJ lumbar spine wo conStart: 96-30-3364XF pre/post mri xrayStart: 48-91-0627Fstfqoqiqvx observation [Identifier] in Cervix by Cyto stainMwhz Education Work Phone: Start: 63-82-3370Hwllt dip stick/tablet reagent auto microscopyThomas Desi MELENDREZ Work Phone: Start: 59-64-3665Lyawu dip stick/tablet reagent auto microscopyThomas Desi MELENDREZ Work Phone: Start: 17-96-4471Oejoabqpkqf panelGregory Forbes MD Work Phone: Start: 45-15-4992Cylzo dip stick/tablet rgnt auto w/o microscopyGregory Forbes MD Work Phone: Start: 06-54-4322VGVNE-19Wendy Meka Hull [employer]ANCE WEB DESIGNER - [employer]ER Work Phone: Start: 18-81-3750CBJRC-Luis E Hartman Work Phone: Start: 36-61-1261Kwxni dip stick/tablet rgnt auto w/o microscopyChjorge Rooney Work Phone: Start: 09-16-2020 End: 45-35-8617Mqrxe count complete auto&auto difrntl wbcChjorge Rooney Work Phone: Start: 01-79-4202Ipuaoiwblkbkb rate rbc automated Robbin Rooney Work Phone: Start: 00-63-5338Fwver count complete auto&auto difrntl wbcLuis E Hartamn Work Phone: Start: 43-24-7073J-reactive proteinLuis E Hartman Work Phone: Start: 71-27-2078Fbaqfuxzvllzg rate rbc automatedLuis E Hartman Work Phone: Start: 67-56-4380Cqcgf count complete auto&auto difrntl wbcLuis E Hartman Work Phone: Start: 32-92-3742E-reactive proteinLuis E Hartman Work Phone: Start: 02-76-9365Jmfqtxtghsqil rate rbc automatedLuis E Hartman Work Phone: Start: 59-56-8225Ccymlvc total xcpt refractometry urineHeather Forbes Work Phone: Start: 62-06-3868Ftucy dip stick/tablet rgnt auto w/o microscopyHeather Forbes Work Phone: Start: 85-71-651825 hydroxy includes fractions if performedBilly Back Work Phone: start: 59-51-3948Naivvhjizzxnl metabolic panelBilly Back Work Phone: start: 14-67-8925Fivjedcpzg glycosylated o0tEnqcs Back Work Phone: start: 06-12-8379Kgiwl panelBilly Back Work Phone: start: 78-55-9998Ubyikzenhfc direct measurement ldl cholesterolBilly Back Work Phone: start: 75-26-9046AIOCBNM FASTING?Felipe Back Work Phone: start: 80-47-6269N-reactive proteinNora Longthorne Work Phone: Start: 34-92-7713Gaaqgipnxm glycosylated e5zAfbaavwprq Mónica Sawyeri [employer]ANCE WE[employer] DESIGNER - [employer]ER Work Phone: Start: 95-27-3021LNDZQAD B12 & FOLATEJacsanta Harmonianharinder [employer]ANCE WEB DESIGNER - [employer]ER Work Phone: Start: 97-62-9698Fcouw spine cervical 4 or 5 viewsNora Longthorne Work Phone: Start: 39-87-4703Jzjqm count complete auto&auto difrntl wbcNora Longthorne [employer]ANCE WE[employer] DESIGNER - [employer]ER Work Phone: Start: 74-04-0000U-reactive proteinNora Longthorne F[employer]ELANCE WEB DESIGNER - [employer]ER Work Phone: Start: 54-14-0298Yfufskt serum plasma/whole blood Heather Forbes Work Phone: Start: 72-21-1118Uuldz of magnesiumHeather Forbes Work Phone: Start: 27-22-0966Caocq of phosphorus inorganicSwdomenica Forbes Work Phone: Start: 19-56-3295Urpwa of urea nitrogen quantitative Heatherwoody Forbes Work Phone: Start: 33-90-5480Eyqfn count hemoglobinSwdomenica Forbes Work Phone: Start: 53-06-8396Hkhvssa totalSwapwoody Forbes Work Phone: Start: 37-59-7652Iiftmmufqgi panelSwapna Andrei Work Phone: Start: 15-79-9270Byqevnl total xcpt refractometry urineSwdomenica Forbes Work Phone: Start: 86-05-7781Xudjdzftlv microscopic onlySwdomenica Forbes Work Phone: Start: 85-78-1242Rfdwz dip stick/tablet rgnt auto w/o microscopySwdomenica Forbes Work Phone: Start: 39-99-1602O-reactive proteinLuis E Hartman Work Phone: Start: 17-61-4475Uxqtotlybaohn rate rbc automatedLuis E Hartman Work Phone: Start: 41-66-0858LWK of cervical spine without contrastExternal TranscribedStart: 10-03-2018 End: 71-88-6279Szhctyddcaa examination of blood, cultureLuis JaureguiComment on above:Performed By: #### BC #### Unless otherwise noted, all testing performed by [place] [address] CLIA: [id number] Power Plant Operator: Harshad Solano M.D.Start: 09-06-2018 End: 18-97-6245QPHK (OUTSIDE)Historical ProviderStart: 08-31-2018 End: 85-48-2487RQRB (OUTSIDE)Historical ProviderStart: 99-89-6144NK CONSULT TO HOME CARE NEEDSWABRENDA MARYtart: 93-83-4824Jttyo of magnesiumWASEEDIN CASASANStart: 12-63-9297Xlvav metabolic panel calcium totalWASEEM YESSENIAANStart: 56-11-7085Zfqbp count complete auto&auto difrntl wbcWASEEM YESSENIAtart: 12-15-0676Dmylgnoqbzfqd (pct)JV MARYrt: 07-46-4324ZTHCWUNZQ PATIENTWASEEM YESSENIAtart: 08-25-2018 PULSE OXIMETRY, CONTINUOUSWASEEM YESSENIAANStart: 96-28-6933JTKVEV PICC LINEWASEEM YESSENIAANStart: 21-16-1923MOBMPGHPNFQLX NURSING CARE ORDER (SPECIFY)JV MARYrt: 67-47-6770QGM ORDER FOR WALKER OPWASEEM YESSENIAANStart: 86-65-3359TCIEE OXIMETRY, CONTINUOUSWASEEM YESSENIAANStart: 92-14-3419RVAJDK PHYSICIAN (SPECIFY)JV APPLE Start: 90-19-3866UVSHZXV COMMUNICATIONWASEEM YESSENIAtart: 92-49-9599GVZDB CANNULA OXYGENWASEEM YESSENIAtart: 41-76-2529SSOUPNPIV SPIROMETRY RTWASEEM tart: 19-95-2212EDLRRSGU OXYGEN THERAPY PROTOCOLWA YESSENIArt: 68-45-6169IYYYR OXIMETRY, CONTINUOUSWASEEM YESSENIAANStart: 67-28-4004Awhwf of magnesiumJV APPLE Start: 41-34-6554Ifdnq metabolic panel calcium totalWASEEM USMANtart: 08-25-2018 Blood count complete auto&auto difrntl wbcWASEEM YESSENIAANStart: 82-35-8566HWCIL OXIMETRY, CONTINUOUSWASEEM YESSENIAANStart: 86-84-6422BHGPS OXIMETRY, CONTINUOUSWASEEM KHANStart: 40-23-4495VTXZM OXIMETRY, CONTINUOUSWASEEM KHANStart: 12-57-4707TJFN GENERALWASEEM YESSENIAANStart: 41-22-1367HK EVAL AND TREATWASEEM YESSENIAANStart: 08-18-4670FN EVAL AND TREATWASEEM YESSENIAANStart: 27-72-2796UAPIY OXIMETRY, CONTINUOUSWASEEM YESSENIAANStart: 76-28-7903FXMCA OXIMETRY, CONTINUOUSWABRENDA APPLE Start: 78-17-6838GIWEELDOT SPIROMETRY RTABRAZO CENTRAL CAMPUSEDIN CASASANStart: 74-65-0223WJERBGSK OXYGEN THERAPY PROTOCOLST. MARY[facility] USMANtart: 94-53-7880KLWUR OXIMETRY, CONTINUOUS JV YESSENIAANStart: 11-45-9950IIRV FAST CULTURE WITH SMEARWEATHERFORD REGIONAL [facility] YESSENIAtart: 53-40-2380KUDLRW STAINEDIN CASAStart: 23-35-4688KRAPJX CULTURENCBRENDA APPLE Start: 75-34-6753TNHVSY CULTUREABRAZO CENTRAL CAMPUSEDIN CASASANStart: 99-13-9695CIKXS OXIMETRY, CONTINUOUSWAWEATHERFORD REGIONAL [facility] [place] YESSENIAANStart: 87-29-3634Bgdeunczdezia (pct)JV KHtart: 90-42-1660LJUAF OXIMETRY, CONTINUOUSWAWEATHERFORD REGION[facility] [place] YESSENIAANStart: 08-55-3560IVGHO CAREST. MARY'[facility] [place] USMANtart: 94-39-4056LQOSGPMIFWGVO NURSING CARE ORDER (SPECIFY)JV APPLE Start: 11-75-5444UPCTJVYL PATIENTWAWEATHERFORD [facility]ION[facility] [place] YESSENIAtart: 11-26-8052JOQVVC FOR SURGICAL PROCEDURESWEATHERFORD REGIONAL [facility] [place] YESSENIArt: 69-59-6480EBUJOGRNS AND AEROBIC CULTURENCBRENDA APPLE Start: 02-66-3217NRYVF OXIMETRY, CONTINUOUSWAWEATHERFORD REGION[facility] [place] YESSENIAtart: 67-80-7939XIMXF OXIMETRY, CONTINUOUSWASE YESSENIAANStart: 08-33-4057EZWZE OXIMETRY, CONTINUOUSWASEEM YESSENIAANStart: 20-83-3215ND CONSULT TO IV TEAMWEATHERFORD REGIONAL [facility] [place] YESSENIAtart: 41-14-8403FKHPMRXVB SPIROMETRY RTST. MARY'S [facility] YESSENIAtart: 24-18-1276IIUOYYSK OXYGEN THERAPY PROTOCOLST. MARY'[facility] [place] USMANtart: 01-16-7208QHIFF OXIMETRY, CONTINUOUSWASEEM YESSENIAANStart: 08-23-2018 Blood count complete auto&auto difrntl wbcELLIS FISCHEL CANCER CENTERrt: 08-23-2018 Comprehensive metabolic panelRESEARCH PSYCHIATRIC CENTERtart: 08-69-4889Qvsroisciip platelet assayWAWEATHERFORD [facility]ION[facility] [place] YESSENIAtart: 28-36-1344FABZH OXIMETRY, CONTINUOUSWAWEATHERFORD REGION[facility] YESSENIAANStart: 99-87-0852UGOGJ OXIMETRY, CONTINUOUSWASEEM KHANStart: 85-84-6053LUXYE OXIMETRY, CONTINUOUSWASEEM KHANStart: 97-06-9289VJHVG OXIMETRY, CONTINUOUSWASEEM APPLE Start: 67-91-2208RAZON OXIMETRY, CONTINUOUSWASEEM KHANStart: 10-42-4892WOMXHLWBA SPIROMETRY RTWASEEM YESSENIAANStart: 91-01-3053HKDLTEXP OXYGEN THERAPY PROTOCOLWASEEM YESSENIAANStart: 82-87-5000DWQEZ OXIMETRY, CONTINUOUSWASEEM KHANStart: 08-22-2018 Assay of magnesiumWASEEM YESSENIAANStart: 16-06-2616Cnygb count complete auto&auto difrntl wbcWASEEM YESSENIAANStart: 62-75-8109IGASQNORAK, TROUGHWASEEM YESSENIAANStart: 14-12-6583GFZPI OXIMETRY, CONTINUOUSWASEEM KHANStart: 27-11-4342YWQEQ OXIMETRY, CONTINUOUSWASEEM KHANStart: 45-89-4698MDWLG OXIMETRY, CONTINUOUSWASEEM APPLE Start: 84-50-9067Xbjeymirrpaps (pct)JVMARISABEL MARYtart: 34-93-1835QIOZI OXIMETRY, CONTINUOUSWASEEM YESSENIAANStart: 60-98-8019NMTXE OXIMETRY, CONTINUOUSWASEEM APPLE Start: 45-22-8635Psx lower extrem oth/thn jt w/o & w/contr matrWASEEDIN MARYtart: 76-88-3062WEJOLPYCJ SPIROMETRY RTWASEEM USMANtart: 56-11-8160OHNANWHS OXYGEN THERAPY PROTOCOLWASEEM YESSENIAANStart: 43-07-5751XWRZQ OXIMETRY, CONTINUOUSWASEEM KHANStart: 64-04-9142Byfba of magnesiumWASEEM USMANtart: 39-06-8833Jbvvw count complete auto&auto difrntl wbcWASEEM USMANtart: 61-82-5645IOSPI OXIMETRY, CONTINUOUSWASEEM KHANStart: 07-79-6713KBTMB OXIMETRY, CONTINUOUSWASEEM APPLE Start: 99-81-5314RZPZW OXIMETRY, CONTINUOUSWASEEM KHANStart: 08-20-2018 MISCELLANEOUS NURSING CARE ORDER (SPECIFY)JV USMANtart: 98-15-2416Cqixh foot complete minimum 3 viewsEDIN MARYtart: 46-44-2437EXYEE OXIMETRY, CONTINUOUS JV USMANtart: 17-47-5033I-reactive proteinWEATHERFORD REGIONAL HOSP[facility] USMANrt: 08-20-2018 SEDIMENTATION RATEBRENDA MARYtart: 53-36-0929HGANE OXIMETRY, CONTINUOUSWABRENDA MARYtart: 57-03-3338RAMQDSIBD SPIROMETRY RTABRAZO CENTRAL CAMPUSEDIN MARYtart: 83-38-8689XHYUJMUO OXYGEN THERAPY PROTOCOLABRAZO CENTRAL CAMPUSEDIN MARYtart: 07-67-6074AOUAZ OXIMETRY, CONTINUOUS JV YESSENIAANStart: 87-46-7609Wlydq of magnesiumJV MARYtart: 28-37-2549Ckcqh count complete auto&auto difrntl wbcEDIN MARYrt: 51-68-3611YILMK OXIMETRY, CONTINUOUSWABRENDA MARYtart: 10-01-1087INWLS OXIMETRY, CONTINUOUSJV APPLE Start: 13-28-3593TTUZJ OXIMETRY, CONTINUOUSWAEDIN MARYtart: 58-36-0561CE CONSULT TO ORTHOPEDIC SURGERYWEATHERFORD REGIONAL [facility] [place] USMANrt: 94-38-2031Athsjmzivptpa (pct) JVMARISABEL MARYrt: 83-66-2106XVXMZ OXIMETRY, CONTINUOUSNCBRENDA MARYtart: 03-88-1248Byd spinal canal cervical w/o & w/contr matrlJV MARYtart: 04-84-7295Oty spinal canal lumbar w/o & w/contr matrlNCEM USMANtart: 38-94-4788Gck spinal canal thoracic w/o & w/contr matrlWAEM YESSENIAANStart: 10-08-6879BLYZW OXIMETRY, CONTINUOUSWABRENDA MARYtart: 24-62-8071QVSWCYCLH SPIROMETRY RTABRAZO CENTRAL CAMPUSEDIN MARYtart: 54-66-6131VCCCWQEI OXYGEN THERAPY PROTOCOLABRAZO CENTRAL CAMPUSEDIN MARYrt: 89-63-1547LNIZP OXIMETRY, CONTINUOUSWAEM USMANtart: 73-36-2894OV CONSULT TO IV TEAMST. MARY'S [facility] USMANtart: 50-94-5373Tzrnu of magnesiumJV APPLE Start: 26-80-6943Rcqwh count complete auto&auto difrntl wbcWABRENDA MARYtart: 31-47-6315BQUUQ OXIMETRY, CONTINUOUSWASEEDIN MARYtart: 14-74-1437ELJKA OXIMETRY, CONTINUOUSWASEEM USMANtart: 52-98-5561GBJFY OXIMETRY, CONTINUOUSWABRENDA APPLE Start: 38-80-0581FNKPW OXIMETRY, CONTINUOUSWASEEM YESSENIAANStart: 21-56-0345ARQRZ OXIMETRY, CONTINUOUSWASEEM USMANtart: 05-15-8297PSJQEUMZH MONITORINGJV APPLE Start: 00-34-0498YOZQUSMKG SPIROMETRY RTNCBRENDA MARYtart: 51-31-4120UWAJTWMA OXYGEN THERAPY PROTOCOLABRAZO CENTRAL CAMPUSEDIN MARYtart: 42-10-1488DCASR OXIMETRY, CONTINUOUS JV YESSENIAANStart: 25-12-2948Pbleq of magnesiumWABRENDA MARYtart: 01-56-7332Phmkq count complete auto&auto difrntl wbcNCBRENDA MARYtart: 02-10-4482JHZIUGCAZN, TROUGHWABRENDA MARYtart: 49-30-7400KHBOV OXIMETRY, CONTINUOUSWASEEDIN MARYtart: 79-50-3572GVPEA OXIMETRY, CONTINUOUSWASEEDIN MARYtart: 83-04-3534YBSWJ OXIMETRY, CONTINUOUSWASEEM USMANtart: 36-71-8190Dozgnvguosgbq (pct)JVMARISABEL MARYrt: 84-00-1617YUGUP OXIMETRY, CONTINUOUSEDIN MARYtart: 91-67-6998RNNGPUA BLOOD #1 JVMARISABEL MARYtart: 84-12-7428XAUSY OXIMETRY, CONTINUOUSWASEEM YESSENIAANStart: 02-19-2143Nrks tthrc r-t 2d w/wom-mode compl spec&colr dWOASIS BEHAVIORAL HEALTH HOSPITALEDIN MARYtart: 42-17-5537TNVPXSKCF SPIROMETRY RTNCBRENDA MARYtart: 33-01-6856NBVBNDDC OXYGEN THERAPY PROTOCOLABRAZO CENTRAL CAMPUSEDIN MARYtart: 63-47-8213GGYEO OXIMETRY, CONTINUOUSWASEEM YESSENIAANStart: 26-81-4897Xemst of magnesiumNCBRENDA MARYtart: 75-24-6490Eaiei count complete auto&auto difrntl wbcNCBRENDA MARYtart: 44-22-3281G-reactive protein JV USMANtart: 53-43-9704LGIZBQVFNUXSI RATEWASEEM USMANtart: 53-10-7654FFBUN OXIMETRY, CONTINUOUSWASEEM YESSENIAANStart: 88-81-6969Hbjk tthrc r-t 2d w/wom-mode compl spec&colr dWASEEDIN MARYtart: 93-35-0787FSIOL OXIMETRY, CONTINUOUSWASEEM YESSENIAANStart: 17-63-5948EOIMV OXIMETRY, CONTINUOUSWASEEM KHANStart: 97-63-0757RTNCM OXIMETRY, CONTINUOUSWASEEM YESSENIAANStart: 86-94-1560TWUVD OXIMETRY, CONTINUOUS JV YESSENIAANStart: 80-00-8261Rms-scan xtr veins complete bilateral studyWA YESSENIAtart: 14-54-2356Gwcz tthrc r-t 2d w/wom-mode compl spec&colr dWMITCHEL APPLE Start: 30-44-1235Nm head/brain w/o contrast materialWAWEATHERFORD [facility]ION[facility] YESSENIAtart: 08-16-2018 Radiologic exam chest 2 viewsWEATHERFORD REGIONAL [facility]OSPITAL [facility] YESSENIArt: 78-05-6441ZOHSQHAAY SPIROMETRY RT JV YESSENIArt: 00-94-6148ORDEOLUB OXYGEN THERAPY PROTOCOL YESSENIArt: 95-41-3617REESW OXIMETRY, CONTINUOUSWASEEM YESSENIAANStart: 06-12-0115DUGICUL ISOLATIONWAWEATHERFORD REGIONAL [facility] [place] USMANtart: 66-77-1287Onlhy of lactateWASE YESSENIAtart: 47-28-3252IZWXAOD, IONIZEDWASEEM YESSENIAtart: 45-68-6469UE CONSULT TO IV TEAM JV YSESENIArt: 88-68-5747Pkapa of magnesiumWASEEM YESSENIAtart: 59-25-8884Vwhzd count complete auto&auto difrntl wbcWEATHERFORD REGIONAL HOSPITAL [facility] rt: 51-80-0410Lgsvudyeagr time JV USMANtart: 27-83-9850YJIKR OXIMETRY, CONTINUOUSWASEEM YESSENIAANStart: 25-42-4097SZUVF WEIGHTSWAWEATHERFORD REGIONAL [facility] [place] YESSENIAANStart: 77-61-6985DGRMF OXIMETRY, CONTINUOUS JV YESSENIAANStart: 17-97-3342YSH 12-LEADWAELLIS FISCHEL CANCER CENTERrt: 37-08-5655Xbhgv of lactateWAELLIS FISCHEL CANCER CENTERrt: 50-02-3646Giaelzvs I.cardiac mass concWEATHERFORD REGIONAL HOSPITAL [facility] rt: 83-28-4493QFSRZ OXIMETRY, CONTINUOUSTEXAS COUNTY MEMORIAL HOSPITALrt: 83-15-2245WVHBHJUH RT PROTOCOLELLIS FISCHEL CANCER CENTERrt: 76-93-7302WFHSINCJCQ ANTIGEN, URINEWEATHERFORD REGIONAL [facility]OSPITAL [facility] rt: 24-66-2870VQFFG PNEUMONIAE ANTIGENWEATHERFORD REGIONAL HOSPITAL [facility] [place] rt: 19-85-0382LS CONSULT TO NEUROLOGYELLIS FISCHEL CANCER CENTERrt: 42-79-7217Rppsj of lactateWEATHERFORD REGIONAL [facility]OSPITAL [facility] rt: 57-03-0871Juvyiat bacterial blood aerobic w/id isolates rt: 30-01-3844QIEPQYO BLOOD #1 rt: 28-98-6223OYQPRWZCDJ PNEUMONIAE ANTIBODY, IGMTEXAS COUNTY MEMORIAL HOSPITALrt: 61-19-8007Jjsvyqpkmmxib (pct)JV rt: 91-00-2552Kjrlnzbi I.cardiac mass concrt: 14-43-2503PFSNYBKA PRIVILEGES WITH ASSISTANCEELLIS FISCHEL CANCER CENTERrt: 69-91-9037GVWVVCKSQ MONITORINGELLIS FISCHEL CANCER CENTERrt: 45-12-0268Amb bact xcpt urine blood/stool aerobic isolNEVADA REGIONAL MEDICAL CENTER Start: 57-59-9569DLMHWOUXY DEEP BREATHING AND COUGHING rt: 41-28-6782OAJW CODEWAELLIS FISCHEL CANCER CENTERrt: 08-10-8446ZEMKNQLQD SPIROMETRY RTWEATHERFORD REGIONAL [facility]OSP[facility] rt: 85-05-7403ZUFZDYVI OXYGEN THERAPY PROTOCOLELLIS FISCHEL CANCER CENTERrt: 61-06-8368LMMMRP AND OUTPUT rt: 62-42-1222WC CONSULT TO INFECTIOUS DISEASESSAINT JOHN'S BREECH REGIONAL MEDICAL CENTERrt: 64-54-4828Hkagbesyvru observation Gram stain Nom (Unsp spec)JV KHrt: 29-10-0190UKYRPB PHYSICIAN (SPECIFY)JVHERMANN AREA DISTRICT HOSPITALrt: 48-50-6772EKNVLSCO TO DOSE VANCOMYCINELLIS FISCHEL CANCER CENTERrt: 93-77-5005DVHNZ INTERMITTENT PNEUMATIC COMPRESSION DEVICEWASEEM [facility]OSPITALtart: 67-58-3954EUNAL OXIMETRY, CONTINUOUSWASEEM ANStart: 77-33-0257LSYSF SIGNSWASEEM [facility]OSPITALtart: 86-21-2415OKLSHNJ STATUS (DIRECT)JV MARYtart: 89-78-6866MvfvttmtjziKkyzk Back Work Phone: start: 26-07-8816Zrpaktvsurh observation [Identifier] in Cervix by Cyto Armani Casas Plan of Treatment DateCare ActivityDetailAuthorStart: 10-35-1910Japcq panelLipidsCarilion Tazewell Community HospitalStart: 55-14-1751Cppdn panelCarilion Giles Memorial HospitalStart: 05-20-7719Fgfrhszw Vaccine (1 of 2)Shingles Vaccine (1 of 2)[facility] [place] Start: 18-10-4198Qtbsp panelLipChildren's Hospital of The King's DaughtersStart: 12-10-2027 Screening for malignant neoplasm of colonBon [facility] HospitalStart: 35-36-5594Isbln panelLipidsVCU MEDICAL CENTERStart: 45-57-6700Rknwbkinr for malignant neoplasm of breastBreast cancer screenBon [facility] [employer] Start: 73-84-4564KSC test (Diabetes, CKD 3-4, OR last GFR 15-59)GFR test (Diabetes, CKD 3-4, OR last GFR 15-59)[facility] HospitalStart: 07-21-2026 GFR test (Diabetes, CKD 3-4, OR last GFR 15-59)GFR test (Diabetes, CKD 3-4, OR last GFR 15-59)[facility] SpinnakrClinch Valley Medical CenterStart: 62-65-2364KNX test (Diabetes, CKD 3-4, OR last GFR 15-59)GFR test (Diabetes, CKD 3-4, OR last GFR 15-59)[facility] HospitalStart: 36-61-9337SNH test (Diabetes, CKD 3-4, OR last GFR 15-59)GFR test (Diabetes, CKD 3-4, OR last GFR 15-59)[facility] [employer] Start: 09-94-7607Inhee panelFort Hamilton Hospital HealthStart: 42-74-0732SMK test (Diabetes, CKD 3-4, OR last GFR 15-59)GFR test (Diabetes, CKD 3-4, OR last GFR 15-59)[facility] HospitalStart: 36-05-5251Zpdxzsabrp A1c sdijcohpgtxI9R test (Diabetic or Prediabetic)[facility]: 74-89-5890JJF test (Diabetes, CKD 3-4, OR last GFR 15-59)GFR test (Diabetes, CKD 3-4, OR last GFR 15-59)[facility]Start: 67-36-8794Lqtlrjnciw MonitoringDepression MonitoringBon [facility] HospitalStart: 58-24-2015JMJ test (Diabetes, CKD 3-4, OR last GFR 15-59)GFR test (Diabetes, CKD 3-4, OR last GFR 15-59)[facility]art: 05-52-1657Srjagoketq A1c iwzilzvhdcaK5Q test (Diabetic or Prediabetic)[facility]Start: 10-12-2025 End: 55-84-1699Cefefyk encounter svobxvnyc62/08/2026 10:30 AM EST Office Visit [facility] [address] [place] [address] [place] [address] Dimas Adair MD [address] [place] [address] [facility] Th[facility] PhysiciansStart: 10-11-2025 End: 72-99-5971ZP Head and neck soft tissueUS Soft Tissue Neck Imaging Routine Thyroid nodule Expected: 10/11/2025, Expires: 10/11/2026[facility] Work Phone: Comment on above:Expected: 10/11/2025, Expires: 10/11/2026Start: 08-29-2025 End: 70-39-8294Zljomkd encounter pndbisghc21/25/2025 11:45 AM EST Office Visit [facility] [address] [place] [address] Lynn Block MD [address] [place] [address], [place] [address] TERRY Gutierrez [facility] Start: 08-23-2025 End: 83-07-1240Utgdxpc encounter bmawhylxs78/19/2025 1:00 PM EST Office Visit [facility] [address] [place] [phone] Jennie Van, [employer] [address] [place] [address] SHANNANRubén MccarthyMendocino NeurologyStart: 08-03-2025 End: 23-48-0071Jqomygl encounter ewrnhookv50/30/2025 11:00 AM EDT Office Visit [address], [id number] Felipe Adam MD [address] [place] [address] Return in about 3 months (around 07/19/2025).[facility] on above:Return in about 3 months (around 07/19/2025).Start: 07-27-2025 End: 42-27-8494Zcmmwzq encounter qdajhqnsz10/23/2025 11:00 AM EDT Office Visit [address], [phone] Felipe Adam MD [address] [place] [address], [place] [address] Return in about 3 months (around 07/19/2025).[facility] on above:Return in about 3 months (around 07/19/2025).Start: 49-44-3229HGJDU-19 Vaccine ( season)COVID-19 Vaccine ( season)[facility]id [facility]Mer[facility] CenterStart: 05-31-2025 End: 47-37-8471IQ Cervical spine 4 or 5 ViewsXR cervical spine complete 4 to 5 views Imaging Routine Cervical paraspinal muscle spasm Expected: 05/31/2025, Expires: 05/24/2026[facility] Work Phone: Comment on above:Expected: 05/31/2025, Expires: 05/24/2026Start: 70-58-4330Rexza panelLipid [facility], [place]Start: 05-24-2025 End: 52-14-1536Nzccdzd encounter rqbtibpql57/20/2025 11:30 AM EDT Office Visit [facility] [address] [place] [phone] Jennie Van [facility] [address] [place] [address] NOMRubén Gutierrez NeurologyStart: 05-17-2025 End: 40-75-9966Axumfpv encounter islajpokv39/13/2025 1:20 PM EDT Office Visit [facility] [address] [place] [phone] Trace Casas MD [address] [facility] [address] [address] [facility] NEURStart: 05-15-2025 End: 57-08-7217Wfhtfjw encounter lupaovozy61/11/2025 1:15 PM EDT Office Visit [address] [phone] Felipe Adam MD [address] [place] [address] Return in about 6 months (around 05/15/2025).[facility] on above:Return in about 6 months (around 05/15/2025).Start: 31-93-4640SBP test (Diabetes, CKD 3-4, OR last GFR 15-59)GFR test (Diabetes, CKD 3-4, OR last GFR 15-59)[facility] HEALTHStart: 88-72-9628Nqwqovhcx vaccinationCarilion Tazewell Community HospitalStart: 05-02-2025 Hemoglobin A1c ymftmuhnofyS7B test (Diabetic or Prediabetic)[facility] Patrickart: 05-02-2025 End: 40-20-0690Nzumqin encounter xlessdwgy46/29/2025 2:00 PM EDT Office Visit [facility] B [address] [place] [phone] Fozia Meng, BALER [address], [address] [place] [phone] [facility] NE[facility] BStart: 05-01-2025 End: 46-25-2413Vjtgfbr encounter tbnggvlta70/28/2025 4:00 PM EDT Office Visit [facility] [address] [place] [address] Robbin Sánchez, DPM [address] [place] [address] [facility] PODIATRYStart: 04-20-2025 End: 48-74-9623Jtwsffc encounter rnbcktgno24/17/2025 12:45 PM EDT Office Visit [facility] [address] [place] [phone] Robbin Sánchez, DPM [address] [place] [address] ArrivedNOMS WWW PODIATRYComment on above:ArrivedStart: 04-06-2025 End: 32-39-7139Rnbnbvn encounter bgqkurhyl07/03/2025 4:30 PM EDT Office Visit [facility] [address] [place] [address] Robbin Sánchez, DPM [address] [place] [address] ArrivedNOMS [facility] PODIATRYComment on above:ArrivedStart: 04-06-2025 End: 30-24-4814Cnekcrniqp [Mass/volume] in Serum or PlasmaCreatinine, Serum Lab Routine Right foot pain Expected: 04/06/2025 (Approximate), Expires: 04/06/2026 [facility] HealthcareComment on above:Expected: 04/06/2025 (Approximate), Expires: 04/06/2026Start: 04-06-2025 End: 79-01-4997BP Foot - right WO and W contrast IVMR foot right w and wo IV contrast Imaging STAT Right foot pain Expected: 04/06/2025, Expires: 04/06/2026 [facility] Work Phone: comment on above:Expected: 04/06/2025, Expires: 04/06/2026Start: 03-14-2025 End: 08-63-8629Eoxwyce encounter procedureNOMS [facility] NE[facility] BStart: 02-13-2025 End: 82-84-1498Fhjgfzb encounter gleswysqo51/12/2025 1:00 PM EDT Office Visit [facility] [address] [address] Trace Casas MD [address] [facility] [address] [place] [address] [facility] NEURStart: 68-39-4840Hgvfbawoyb MonitoringDepression MonitoringBON [facility]OSPITALStart: 11-15-2024 End: 67-09-6539Vmzvejc encounter gmtzpugpc28/11/2025 2:45 PM EST Office Visit [facility] [address] [place] [address] Felipe Adam MD [address] [place] [address] 6 [facility] CenterComment on above:6 moStart: 11-14-2024 End: 32-39-9585Fvvykhn encounter procedureNOMS [facility] NEURComment on above:Arrived Start: 11-11-2024 End: 83-56-0106Rddlfbv encounter devlkfhjx44/07/2025 1:00 PM EST Office Visit [facility] [address] [place] [address] Felipe Adam MD [address] [place] [address] 6 [facility] CenterComment on above:6 moStart: 84-09-4526Hlblfjnjc for malignant neoplasm of cervixBON SECOURS MARION HOSPITALStart: 09-14-2024 End: 18-41-2606Ncaeggt encounter rmdgyvmot57/11/2024 11:20 AM EST Office Visit [facility] [address] [facility] [address] [place] [phone] Foiza Meng, BALER [address] [phone] ArrivedNOMS [facility] NEURComment on above: ArrivedStart: 52-55-6900OIgL/Tdap/Td vaccine (2 - Td or Tdap)DTaP/Tdap/Td vaccine (2 - Td or Tdap)[facility] HospitalStart: 03-87-6469IKfR/Tdap/Td vaccine (2 - Td)DTaP/Tdap/Td vaccine (2 - Td)[facility] KYStart: 98-57-6319Ricqwoq vaccinationOhioHealthStart: 09-05-2024 End: 27-09-9163Jaserar encounter ttwgogtll28/02/2024 1:00 PM EST Office Visit [facility]UR [address] [facility] [address] [place] [phone] Trace Casas MD [address] [address] [facility] NEURStart: 08-18-2024 End: 32-85-9799Kxfzeic encounter imfcfnmho27/14/2024 1:30 PM EST Office Visit [facility] [address] [place] [address] Luis Mclean, PACharitoC [address] [facility] [address] [place], [place] [id number] 1 yr med chkMCleveland Clinic [facility] UrologyComment on above:1 yr med chkStart: 08-02-2024 End: 43-13-1681Qaejcne encounter swofpopmx10/29/2024 10:45 AM EDT Office Visit [facility] [address] [place] [address] Cheryl Miles DO [address] [place] [address] [facility] WNZ NEUROStart: 07-11-2024 End: 65-96-3662Ccpvmgnzjxqa consultation with smcfzvr6207/11/2024 11:30 AM EDT Telemedicine [facility] [address] [place] [address], [place] [address] Janel Allen BALER [address] [place] [address] [facility] NEURO 210Start: 06-10-2024 End: 40-97-8264Hprrdfq encounter /06/2024 10:20 AM EDT Office Visit [facility] [address] [facility] [address] [place] [phone] Trace Casas MD [address] [place] [address] ArrivedNOMS SWS NEURComment on above: ArrivedStart: 57-57-5995NCZHL-19 Vaccine ( season)COVID-19 Vaccine ( season)Bon [facility] Hospitalart: 43-02-8262KGWJM-19 Vaccine ( season)COVID-19 Vaccine ( season)OhioHealthStart: 06-05-2024 Influenza vaccinationInfluenza Vaccine (#1)[facility] CenterStart: 42-73-0758Tbqflfieh for malignant neoplasm of colonBon [facility] Hospitalart: 45-56-0876VPT test (Diabetes, CKD 3-4, OR last GFR 15-59)GFR test (Diabetes, CKD 3-4, OR last GFR 15-59)[facility]: 76-48-0572Jzcnxfkv screenDiabetes screen [facility] Centerart: 05-12-2024 End: 36-06-1717Jgieran encounter xocaczxzn25/08/2024 11:00 AM EDT Office Visit [facility] P[facility] Part of [address] [address] Lina Echols MD [facility] [place] [address] BUCK (obstructive sleep apnea)[facility] Part of [facility] HospiceComment on above: BUCK (obstructive sleep apnea)Start: 26-05-4681Zhcoz panelLipid [facility], KYStart: 71-75-0252Nesqp screenLipid [facility], [place] Start: 39-90-3351Txxlglzwy vaccinationFlu vaccine (#1)[facility] Start: 24-19-7127Dvxizhmxpy MonitoringDepression MonitoringBON [facility] Centerart: 44-54-8586EXD test (Diabetes, CKD 3-4, OR last GFR 15-59)GFR test (Diabetes, CKD 3-4, OR last GFR 15-59)[facility]: 02-06-2024 Hemoglobin A1c wypbhyroawvD5C test (Diabetic or Prediabetic)[facility]: 08-13-2023 End: 13-87-4586Zubzyen encounter procedureOhio State Harding Hospital [place] UrologyStart: 06-22-2023 End: 73-90-9467Thrzemn encounter wieunmtry41/18/2023 11:15 AM EDT Office Visit [facility] [address] [place], [place] Felipe Adam MD [address] [place] [address] [facility]: 06-05-2023 Influenza vaccinationSequential Influenza Vaccine (Season Ended)[facility]: 76-30-9588Qyubzcbzl vaccinationBON [facility]: 04-14-2023 End: 65-90-2901Iwnsphs encounter trvuochzb79/11/2023 Office Visit Family Medicine Fleipe Adam MD [address] [place] [address] [facility]: 51-71-1040Esrsbzwxuo A1c nipggustjccR5M test (Diabetic or Prediabetic)[facility]: 97-41-5221Vdtdqmbhqn MonitoringDepression MonitoringBON [facility] Start: 37-56-9461Brgpmxa and physical examination, annual for health maintenance Wellness VisitOhioHealthStart: 12-25-2022 End: 39-95-8905Gnhjuie encounter gspwleydf67/23/2023 Office Visit Infectious Diseases Dav Hartman MD [address] [address] [facility]Start: 32-79-9253Nkrkhdbo screenDiabetes [facility] Hospitalart: 08-07-2022 End: 07-87-5283Tviwxec encounter crxskjwcu25/03/2022 Office Visit Urology Luis Mclean PA-C [address] [facility] [address] [place] [address] [facility] UrologyStart: 07-15-2022 End: 70-42-9667Gcyiaqg evaluation of patient and bmzsja7807/15/2022 Nurse Only Family MedicineHumboldt County Memorial HospitalwichStart: 07-09-2022 End: 53-35-3385Rbkbngx encounter ibhbctlpx36/05/2022 Appointment IP Unit Samantha Lino RD, LD [facility] Diet and NutritionStart: 06-05-2022 Influenza vaccinationFort [facility] Hospital HealthStart: 51-12-8565Cpfvqkuynx measurementFort Hamilton Hospital HealthStart: 53-15-6250Rwwyrlbsg [Moles/volume] in Serum or PlasmaPotassiumFort Hamilton Hospital HealthStart: 43-11-3023Racbuqniy monitoringPotassium monitoringFort Hamilton Hospital Health Start: 90-25-4528Huvdptjdts measurementCreatinine monitoringOhio State Harding Hospital Work Phone: start: 97-88-4301Ilqzgtaci monitoringPotassium monitoringOhio State Harding Hospital Work Phone: start: 39-87-0629Gxudfbgsc vaccinationFlu vaccine (#1) [facility]ITALStart: 64-80-1173Djjuvcsbs for malignant neoplasm of cervixOhioHealthStart: 02-05-2022 End: 83-10-6021Ifzxkzr encounter bppfasled83/04/2022 Appointment Physical Therapy Christel Donohue PTMWHZ Physical TherapyStart: 02-03-2022 End: 68-51-0285Klganhg encounter procedureMWHZ Physical TherapyStart: 01-30-2022 End: 57-62-5936Jbuajfs encounter procedureGlenbeigh Hospital UrologyStart: 01-29-2022 End: 57-41-2208Bijbkoe encounter zrozuzufy02/27/2022 Appointment Physical Therapy Beverly Rangel PTAMWHZ Physical TherapyStart: 01-27-2022 End: 83-38-4416Nblzxue encounter sziumicni95/25/2022 Appointment Physical Therapy Christel Donohue PTMWHZ Physical TherapyStart: 01-24-2022 End: 49-66-6583Mlpknnl encounter twsodazmk10/22/2022 Appointment Physical Therapy Vanessa Garcia PTMWHZ Physical TherapyStart: 01-22-2022 End: 36-61-6952Oqrglsk encounter kelikfsiv19/20/2022 Appointment Physical Therapy Beverly Rangel PTAMWHZ Physical TherapyStart: 01-17-2022 End: 02-76-7807Iyrfclz encounter joodwlyjd39/15/2022 Appointment Physical Therapy Beverly Rangel PTAMWHUzair Physical TherapyStart: 01-10-2022 End: 13-86-2515Ranwdol encounter gggknnmro85/08/2022 Appointment Physical Therapy Christel Donohue PTMWHZ Physical TherapyStart: 01-08-2022 End: 33-83-4645Xjbpyue encounter yxpucpqft08/06/2022 Appointment Physical Therapy Beverly Rangel PTAMWHUzair Physical TherapyStart: 01-02-2022 End: 80-57-6077Xquhqht encounter sadohybnw57/31/2022 Appointment Occupational Therapy Judi Marie OTA [address] [place] [address] [facility] Occupational TherapyStart: 78-00-8246Capgolcc screenDiabetes screen [place], [place]Start: 12-31-2021 End: 08-63-2484Rixhspt encounter procedureMZ Physical TherapyStart: 12-30-2021 End: 54-51-2805Bsrsqzq encounter skgegypfb19/28/2022 Appointment Occupational Therapy Cheryl Herman OTMWHUzair Occupational TherapyStart: 12-27-2021 End: 68-26-0785Qxxzdrq encounter vvojedcqu12/25/2022 Appointment Occupational Therapy Eve Gaspar OTAMWHZ Occupational TherapyStart: 11-14-2021 End: 06-79-4365Qksinrl encounter jrhxfydfm11/10/2022 Office Visit Family Medicine Felipe Adam MD [address] [place] [address] [phone] [facility] CenterStart: 91-98-8481Ttufftqzhc MonitoringDepression MonitoringMercy HealthStart: 19-31-2661Xdhjaxwjbo measurementCreatinine monitoringMercy Health Work Phone: start: 86-28-8957Vcdmxyysr monitoringPotassium monitoringMercy Health Work Phone: start: 08-01-2021 End: 41-86-9942Eglydud encounter wivsimgfg32/28/2021 Office Visit Urology Lita Weeks MD [address] [facility], [address] [place], [place] [phone] [facility] UrologyStart: 06-05-2021 Influenza vaccinationOhio State Harding HospitalStart: 90-98-2717Uyhjkquoye measurement Creatinine monitoringOhioHealth Doctors Hospital, KYStart: 74-66-7940OgO7i (Bld) [Mass fraction]A1C test (Diabetic or Prediabetic)[facility], [place]Start: 05-25-2021 Hemoglobin A1c ubzioiyqefpL7K test (Diabetic or Prediabetic)[facility] [employer] Work Phone: start: 01-37-6647Kpxfutqmp monitoringPotassium [facility], KYStart: 11-13-2020 End: 54-92-9626Szemaj Visit11/13/2020 Office Visit Family Medicine Felipe Adam MD [address] [place] [address] [phone] [facility] LivingStart: 88-25-6929Fjcimbbvy monitoringPotassium monitoringOhioHealth Doctors Hospital, KYStart: 10-23-2020 End: 65-83-1866Ypqhli Visit10/23/2020 Office Visit Infectious Diseases Dav Hartman MD [address] [facility] [address] [place], [place] [address] [facility]Start: 12-94-3190ZaT5t (Bld) [Mass fraction]A1C test (Diabetic or Prediabetic)[facility] MarketbrightPEMISCOT [facility]S, KYStart: 59-63-6484Esckftraoo measurementCreatinine monitoringFort Hamilton Hospital Health [place], [place]Start: 91-88-5804Vftyiknypj monitoringCreatinine monitoringFort Hamilton Hospital Health [place], [place]Start: 02-12-7815Sewourxuw monitoringPotassium monitoringFort Hamilton Hospital Health- [place], [place]Start: 06-12-2020 End: 17-21-1157Xsksgx Visit06/12/2020 Office Visit Infectious Diseases Dav Hartman MD [address] [place], [place] [address] [facility], [facility] CenterStart: 32-63-6249Bxpmmegrc vaccinationFlu vaccine (#1)[facility]: 96-73-6724Uzsibvps cancer screenCervical cancer screenMercy Health Allen Hospital: 86-13-1771Cvvufbosi for malignant neoplasm of cervixArkansasHealthStart: 11-01-2019 End: 34-12-2113Tryxfj Visit11/01/2019 Office Visit Infectious Diseases Dav Hartman MD [address] [place], [place] [address] [facility], [facility] CenterStart: 07-28-2019 End: 63-85-5862Owqlvc Visit07/28/2019 Office Visit Infectious Diseases Dav Hartman MD [address] [place] [address] [phone] [facility], [facility].Start: 06-27-2019 End: 08-21-7249Tgdhn Only06/27/2019 Nurse Only Family [facility] LivingStart: 60-11-3657Stigbngnv vaccinationFlu vaccine (#1)[facility]: 41-54-4119Uzbvhtbyg vaccination givenSEQUENTIAL INFLUENZA VACCINE (Season Ended)[facility]HealthStart: 13-41-7992Ieadaqyme for malignant neoplasm of breastArkansasHealthStart: 11-14-9362Mwnttzvvr vaccinationINFLUENZA VACCINE (#1)[facility] Work Phone: Start: 03-23-2018 End: 51-47-7688ZufcwhsvveGwoeCqppiv Primary Care Women's HealthStart: 2009 Screening for malignant neoplasm of cervixHPV (without or with Pap)[facility]ITALStart: 41-40-2775Xhqksizak for malignant neoplasm of cervixPAP SMEAR [facility] Work Phone: Start: 32-74-7626Fjwxuaeqi B vaccine (1 of 3 - 19+ 3- dose series)Hepatitis B vaccine (1 of 3 - 19+ 3-dose series)Bon Bulmarolynnette [facility] HospitalStart: 51-54-6519Qmebq diphtheria, tetanus and acellular pertussis (DTaP) vaccinationTDAP (ADULT)[facility] Work Phone: Start: 34-21-5164Yjynizihs C screeningHepatitis C ScreeningFisher-Titus Medical CenterStart: 85-32-7603Jczmvtp vaccinationTETANMagruder Memorial Hospital Work Phone: Start: 96-00-4648JALJU-19 Vaccine (1)COVID-19 Vaccine (1)[employer] Work Phone: start: 80-90-2921EJZ screenHIV screenOhioHealth Doctors Hospital, KYStart: 82-31-6580NWW screeningHIV screenOhio State Harding HospitalStart: 61-17-9768PPQ screeningHIV SCREENING [facility] Work Phone: Start: 96-13-5819CIFEM-19 Vaccine (1)COVID-19 Vaccine (1)[employer] Work Phone: start: 66-83-2448Bfpavadwwy MonitoringDepression MonitoringOhio State Harding HospitalStart: 26-72-1742Aanvkiezhp screening using PHQ-9 (Patient Health Questionnaire 9) scoreOhioHealthStart: 68-44-7203Mgzlp screening for proteinUrine MicroalbuminOhioHealthStart: 28-07-6475Hlsqqtxykska Vaccine: Ped or At-Risk (1 - PCV)Pneumococcal Vaccine: Ped or At-Risk (1 - PCV)[facility]kansasHealthStart: 83-66-6220UZBOB-19 Vaccine (1)COVID-19 Vaccine (1)[facility] HospitalStart: 1982 History and physical examination, annual for health maintenanceStafford Hospital Visit ArkansasHealthStart: 92-25-2456XSPBZ-19 Vaccine (#1)COVID-19 Vaccine (#1)[facility]: 19-54-5510Okqxfnlyh B vaccine (1 of 3 - 3-dose series) Hepatitis B vaccine (1 of 3 - 3-dose series)[facility]: 50-89-8463Vzazebmfx for malignant neoplasm of colonAkioHolmes County [facility] End: 90-01-3012QICTJ-19COVID-19 Lab Routine Suspected COVID-19 virus infection 1 Occurrences starting 02/13/2021 until 02/13/2021[facility] CenterN[facility] Work Phone: comment on above:1 Occurrences starting 02/13/2021 until 02/13/20211033YHLGU-72ZRCPU-80 Lab Routine Suspected COVID-19 virus infection 02/13/2021 3:06 PM [employer] Phone: End: 50-03-9298SKBBK-19 AmbulatoryCOVID-19 Ambulatory Lab Routine SOB (shortness of breath) 1 Occurrences starting 08/08/2020 until 08/08/2020[facility], MEComment on above:1 Occurrences starting 08/08/2020 until 08/08/2020COVID-19 AmbulatoryCOVID-19 Ambulatory Lab Routine SOB (shortness of breath) 08/08/2020 4:02 PM [facility], [place] End: 66-14-8018Frqafzkrho [Mass/volume] in UrineCreatinine, Random Urine Lab Routine Once for 1 Occurrences starting 05/20/2021 until 05/20/2021[facility] CenterPra[facility] Phone: comment on above:Once for 1 Occurrences starting 05/20/2021 until 1Creatinine [Mass/volume] in UrineCreatinine, Random Urine Lab Routine 05/20/2021 7:57 PM [employer] Phone: End: 75-27-9652Yaamvhh, UrineCulture, Urine Microbiology Routine Acute cystitis with hematuria 1 Occurrences starting 04/13/2021until 04/13/2021[facility] CenterN[facility] Work Phone: comment on above:1 Occurrences starting 04/13/2021 until 1Culture, UrineMerPrairie Bunkers Phone: End: 23-37-1804Wgjdnge, UrineCulture, Urine Microbiology Routine Difficult or painful urination 1 Occurrences starting 05/27/2021 until 05/27/2021Woldme Phone: comemqq on above:1 Occurrences starting 05/27/2021 until 05/27/2021 End: 64-60-1121Kszjkos, UrineCulture, Urine Microbiology Routine Acute cystitis with hematuria Recurrent UTI 1 Occurrences starting 06/11/2021 until 06/11/2021 [employer] Phone: comjgll on above:1 Occurrences starting 06/11/2021 until 06/11/2021 End: 41-47-9838Cvyjsvf, UrineCulture, Urine Microbiology Routine Frequent UTI Urinary urgency Urinary frequency 1 Occurrences starting 07/11/2021 until 07/11/2021Woldme Phone: comaezk on above:1 Occurrences starting 07/11/2021 until 07/11/2021 End: 89-11-1393Zlwogsg, UrineCulture, Urine Microbiology Routine Frequent UTI Urinary urgency Urinary frequency 1 Occurrences starting 08/01/2021 until 08/01/2021Woldme Phone: comabbu on above:1 Occurrences starting 08/01/2021 until 08/01/2021 End: 62-24-6479Ryeqwut, UrineCulture, Urine Microbiology Routine Acute cystitis with hematuria 1 Occurrences starting 04/28/2022until 04/28/2022ON [employer] Phone: comezwv on above:1 Occurrences starting 04/28/2022 until 04/28/2022 End: 99-59-8407Brvzvqi, UrineBON [employer] Phone: comlgxe on above:1 Occurrences starting 02/05/2023 until 02/05/2023 End: 30-29-8468Qmmkrty, Wound (with Gram Stain)Bon ClassiphixComment on above:One Time for 1 Occurrences starting 04/04/2025 until 04/04/2025 End: 41-82-8945OPX Breast - bilateral screeningBon SecVivotechComment on above:1 Occurrences starting 02/15/2025 until 02/15/2025 End: 48-93-5020Zyujxdtgjq A1c/Hemoglobin.total in BloodBON [employer] Work Phone: comment on above:1 Occurrences starting 04/12/2022 until 04/12/2022 End: 30-30-3667Nqltbsuujk A1c/Hemoglobin.total in BloodBON [employer] Work Phone: Comment on above:Once for 1 Occurrences starting 02/05/2023 until 02/05/2023 End: 63-42-7718Uylekefvlw A1c/Hemoglobin.total in BloodBon [employer] Comment on above:1 Occurrences starting 08/02/2025 until 08/02/2025 End: 06-31-1759Tsiv Sleep StudyCranberry Specialty Hospitale [facility] Routine One Time for 1 Occurrences starting 08/29/2019 until 08/29/2019[facility] CenterNichewithPEMISCOT [facility]S, [place] Comment on above:One Time for 1 Occurrences starting 08/29/2019 until 08/29/2019 End: 29-62-2983Fhitzouhfqgqc Acid, SerumMethylmalonic Acid, Serum Lab Routine Once for 1 Occurrences starting 09/24/2019 until 09/24/2019[facility] CenterP[facility] Phone: comfmue on above:Once for 1 Occurrences starting 09/24/2019 until 09/24/2019Methylmalonic Acid, SerumMethylmalonic Acid, Serum Lab Routine 09/24/2019 9:33 AM [employer] Work Phone: End: 99-59-8380Lyxwcjd Ab [Titer] in Serum by ImmunofluorescenceANA Lab Routine Once for 1 Occurrences starting 09/24/2019 until 09/24/2019[facility] CenterP[facility] Phone: comzzxk on above:Once for 1 Occurrences starting 09/24/2019 until 09/24/2019Nuclear Ab [Titer] in Serum by ImmunofluorescenceANA Lab Routine 09/24/2019 9:33 AM ESTWoldme Phone: End: 13-73-7398Shxuztp, urine, randomProtein, urine, random Lab Routine Once for 1 Occurrences starting 05/20/2021 until 05/20/2021Woldme Phone: comment on above:Once for 1 Occurrences starting 05/20/2021 until 1Protein, urine, randomProtein, urine, random Lab Routine 05/20/2021 7:57 PM [employer] Phone: End: 90-46-2560Nridusziuwszi RateSedimentation Rate Lab Routine MRSA (methicillin resistant Staphylococcus aureus) septicemia (HCC) 1 Occurrences starting 12/14/2019 until 12/14/2019[facility] Medical CenterAsterias BiotherapeuticsComment on above:1 Occurrences starting 12/14/2019 until 12/14/2019Sedimentation RateSedimentation Rate Lab Routine MRSA (methicillin resistant Staphylococcus aureus) septicemia (HCC) 12/14/2019 12:39 PM tok tok tok [place] End: 66-88-3524Rmvyxmlt syndrome-A extractable nuclear antibodySjogrens syndrome-A extractable nuclear antibody Lab Routine Once for 1 Occurrences starting 09/24/2019 until 09/24/2019Woldme Phone: comment on above:Once for 1 Occurrences starting 09/24/2019 until 09/24/2019Sjogrens syndrome-A extractable nuclear antibody Sjogrens syndrome-A extractable nuclear antibody Lab Routine 09/24/2019 9:33 AM [employer] Phone: End: 97-29-8567Wedymtua syndrome-B extractable nuclear antibodySjogrens syndrome-B extractable nuclear antibody Lab Routine Once for 1 Occurrences starting 09/24/2019 until 09/24/2019Woldme Phone: comjvdf on above:Once for 1 Occurrences starting 09/24/2019 until 09/24/2019Sjogrens syndrome-B extractable nuclear antibody Sjogrens syndrome-B extractable nuclear antibody Lab Routine 09/24/2019 9:33 AM [employer] Phone: End: 93-87-2886Qtuoj Study with PAP TitrationSleep Study with PAP Titration Sleep Center Routine One Time for 1 Occurrences starting 09/12/2019 until 09/12/2019Woldme Phone: comment on above:One Time for 1 Occurrences starting 09/12/2019 until 09/12/2019 End: 60-60-6667Lxsjrpv H4Niedikd B6 Lab Routine Once for 1 Occurrences starting 09/24/2019 until 09/24/2019Woldme Phone: comment on above:Once for 1 Occurrences starting 09/24/2019 until 09/24/2019Vitamin X1Howopby B6 Lab Routine 09/24/2019 9:33 AM [employer] Phone: XR Cervical spine 4 or 5 ViewsXR cervical spine complete 4 to 5 views Imaging Routine Cervical paraspinal muscle spasm 512:45 PM EDTNOOR Healthcare Immunizations Immunization DateImmunizationNotesCare DdrmpotfYweoenyi59-79-2367nvvbtau toxoid, reduced diphtheria toxoid, and acellular pertussis vaccine, adsorbedBilly Back [facility] [place] Payers DatePayer CategoryPayerPolicy [id number] Care HMO (unspecified)[facility] HMO/CHOICE PLUS/DULCE/DULCE PLUS [id number].9.070678.625.27761-56-3574Xetvwoc Health Insurance 1.2.840.004294.1.13.693.2.7.9.929345.423234.17056-89-9665Tobdqfu Health [id number] 1.2.840.920558.1.13.239.2.7.3.583853.60607-27-5740Doln-xfs xz18m3e5-595t-5677-8399-8800x7e1q36391-59-7918Nbew Cross Blue Shield (Indemnity or Managed Care) - Out of StateBCBS OUT OF STATE [facility] Member Subscriber Plan / Payer (Effective 2017-Present) Name: Celina Gsapar Relation to Subscriber: Spouse Name: ROBIN GASPAR Date of : 1980 Address: [address] [place] [address] Payer ID: [id number] (NAIC) Type: Not on file Address: [facility] [address] [place] [id number] 1.2.840.270737.1.13.385.2.7.9.337137.335.07458-02-3989Mwhdlpw45-71-9916Kkdhzxg [id number] 1.2840.140569.1.13.239.2.7.3.185121.315 [id number] 2014MedicaidCARESOURCE MANAGED MEDICAID [facility] MEDICAID xxxxxxxxxxx 2014-Presentxxxxxxxxxxx 1.2.840.690753.1.13.385.2.7.3.267[id number] 840.1.340682.3.57[id number] .1.652114.3.579.[id number] 2.16840.1.598165.3.579.[id number] 2.16840.1.641769.3.57[id number] 2.16840.1.228672.3.57[id number] 2.840.1.508709.3.579.2.01581-54-9170Zsloezs06894215 2.840.1.665270.3.579.2.51277-69-7913Ebqsbhd91009855 2.840.1.093648.3.579.2.1[id number] 2.840.1.360075.3.579.2.23790-03-0565Btohcqx6038025 2.840.1.029838.3.579.2.83206-01-9476Noioaeq6367068 2.840.1.992327.3.579.2.94251-94-6797Ppynxmr5202814 2.840.1.734126.3.57[id number] 2.840.1.359785.3.579.2.50069-05-4454Fweiolj353410289 2.840.1.953128.3.579.2.61925-26-3888Uaooohu69957941 2.16840.1.239507.3.579.2.48300-66-4133Phcqhje86865348 2.840.1.450526.3.579.2.272719-20-9925Mfduahj95229454 2.0.1.544567.3.579.2.117611-50-6242Hwhkpdp12942567 2..1.440415.3.579.2.063591-10-5540Speakua98224375 2.0.1.200962.3.579.2.606231-36-8359Jugtfrh03522734 2..1.558065.3.579.2.705989-99-3042Rnieoie17375382 2..1.908083.3.579.2.472606-60-4755Hqwtzrh0504474 2..1.182505.3.579.2.394869-25-1232Putgtqx8746062 2..1.342645.3.579.2.816828-18-8739Ftkdvwy1636036 2..1.523259.3.579.2.827432-63-2686Bozuyio5183487 2..1.096183.3.579.2.044726-23-9622Msztjuj8290333 2..1.646167.3.579.2.046730-57-8211Rxbltqa71008399 2..1.720269.3.579.2.03430-94-9125Ahlbllt68591341 2..1.747332.3.579.2.92121-81-6768Qvlqeum63381122 2..1.745808.3.579.2.93266-10-4499Ceqwqwy41711038 2..1.803841.3.579.2.29856-44-9985Ieferhw30077381 2.0.1.682143.3.579.2.49366-96-7278Fmkuche96059541 2.16.840.1.962118.3.579.2.23004-93-7620Hixlhjf24458741 2.16.840.1.498904.3.579.2.37472-45-0960Kkmwbpc25200091 2.16.840.1.226866.3.579.2.29339-23-4693Qdowoia07037194 2.16.840.1.399378.3.579.2.79179-29-6190Ejitafz40756621 2.16.840.1.920037.3.579.2.32512-70-3814UdiefvaGTT585152519524 1.2.840.028877.1.13.239.2.7.3.784727.378Bnufeks251Zogvoso63044347 2.16.840.1.405020.3.579.2.531 Social History DateTypeDetailFacilityStart: 05-01-2015 End: 49-40-3595Wficemq smoking status NHISNever smokerOhTwin City Hospital Work Phone: Start: 28-61-0151Boi Assigned At BirthNot on file [facility] Work Phone: Start: 05-27-2019 End: 49-13-1388Gahodpf intakeNoMercy Health [facility] Hospital: 12-13-2019 End: 24-20-6751Nzhlxvy intakeCurrent non-drinker of alcohol (finding)[facility]: 12-09-2019 End: 98-34-3917Nzlomgt SDOH Mhtnvdpxs1GpqwjMercy Health Allen Hospital: 12-09-2019 End: 01-09-6699Gekxtfg SDOH Food Uumgs2AtvmfMercy Health Allen Hospital: 12-09-2019 History SDOH Transport Xyc4RxxpeMercy Health Allen Hospital: 05-11-2020 End: 49-62-4252Tkcnlgw use and exposureNever [facility] [place]: 10-30-2021 End: 37-26-3412Mwjtrqdq to SARS-CoV-2 (event)Not sureMercy Health Allen Hospital: 68-03-2151Fec Assigned At [facility] Centertart: 81-59-6495Zdpypwy SDOH Ptwuxlxip1LHT BULMAROSocialExpress Work Phone: start: 01-06-2023 End: 81-82-4689Bjyasxy of Social functionOhioHealthHow hard is it for you to pay for the very basics like food, housing, medical care, and heatingNot very hard Dhir DiamondsStart: 61-34-3836Nbxyrza Health Questionnaire 9 item (PHQ-9) total score [Reported]0[place]ON [place](I/We) worried whether (my/our) food would run out before (I/we) got money to buy more.Never trueBON Buzz LanesAt any time in the past 12 months, were you homeless or living in intermediate [including now]?NoBON Infochimps HEALTHStart: 10-09-2020 Gender identityIdentifies as female gender (finding)[employer] Start: 71-69-2525Srfwhi orientationHeterosexual (finding)BON [facility] HEALTHHow hard is it for you to pay for the very basics like food, housing, medical care, and heatingSomewhat hardBON Infochimps HEALTHStart: 06-10-2024 End: 15-55-3280Qauyjdjft beverage intakeLifetime non-drinker (finding)[facility] HealthcareStart: 90-13-1606Vzqihif CommentCaffeine Intake: Yes, popNOOR HealthcareStart: 19-80-9914QnrUhldmb (finding)Only [employer] HealthHow often to you have a drink containing alcohol?NeverBon Regalamos HealthStart: 04-20-2025 End: 37-97-2153Wlgdcrvvt beverage intakeEx-drinker (finding)[facility] Start: 03-39-3194Sxdggqb Comment1-2 times a yearNOOR HealthcareNEGATED: Highlighted rowStart: NINFHistory of tobacco usePassive smokerB[facility] Functional Status DateAssessmentResultFaAugusta Health Clinical Notes 12-23-2021 to 07-31-2025 Note Date & DxwkRexsLottenlk35-34-6747 Telephone encounter Note* Telephone Encounter - Janel Allen NP - 07/31/2025 8:33 AM EDT OARRS reviewed. Sent. [facility] CenterKqudiushoe55-05-3358 Miscellaneous Notes* Telephone Encounter - Janel Allen NP - 07/31/2025 8:33 AM EDT OARRS reviewed. Sent. documented in this encounterSt. Louis VA Medical CenterQuvytrzoak47-67-9342 History of Present illness Narrative* Jennie Van [...] reflexes: Goyo's absent. Ankle clonus absent. Coordination Lnbntb-tk-wzzo, rapid alternating movements and rlnv-ql-eluq normal bilaterally without dysmetria. Gait Casual gait: [...] Continue current management plan documented in this encounterSt. Louis VA Medical CenterIenhctilvw49-19-2121 Telephone encounter Note* Telephone Encounter - Paresh Cary - 05/23/2025 9:36 AM EDT Patient same day canceled due to her foot being in a boot and cannot drive by herself. [facility] CenterHvbvouhbba86-32-8022 Miscellaneous Notes* Telephone Encounter - Paresh Luis Daniel - 05/23/2025 9:36 AM EDT Patient same day canceled due to her foot being in a boot and cannot drive by herself. documented in this encounterSt. Louis VA Medical CenterUinondvesj94-92-6778 History of Present illness Narrative* Robbin Sánchez, [...] next visit with xra documented in this encounterSt. Louis VA Medical CenterBjthfqqlaq49-89-7882 Evaluation note* Diagnosis Chronic renal impairment, stage [...] 3a (HCC) documented in this encounter [facility]07-10-2025 Evaluation note* Diagnosis Chronic renal impairment, stage 3a (HCC)- Primary Depression with anxiety Dysthymic disorder Gastroesophageal reflux disease without esophagitis Esophageal reflux Vitamin D deficiency Unspecified vitamin D deficiency Mixed hyperlipidemia BUCK on CPAP Obstructive sleep apnea (adult) (pediatric) Restless legs Restless legs syndrome (RLS) Hyperglycemia Other abnormal glucose Pain in right foot Pain in limb documented in this encounter [facility]07-03-2025 History of Present illness Narrative* Robbin Sánchez, INDER - 04/06/2025 4:30 PM EDT Celina Gaspar is a 44 y.o. female presents with chief complaint of Foot Ulcer (RT toe 2 ulcer) HPI: HPI Pt has ulcer on RT toe 2 for about 2 wks. She went to [facility] ER on 04-04-25, xrays, culture and put [...] toe or midfoot but also Charcot MRI [facility] 04-11-25 11:30 AM, arrive at 11:00 AM. Pt notified. documented in this encounterSt. Louis VA Medical CenterJuywoeznfw52-90-7638 Evaluation note* Diagnosis Chronic renal impairment, stage 3a (HCC)- Primary Depression with anxiety Dysthymic disorder Gastroesophageal reflux disease without esophagitis Esophageal reflux Vitamin D deficiency Unspecified vitamin D deficiency Mixed hyperlipidemia BUCK on CPAP Obstructive sleep apnea (adult) (pediatric) Restless legs Restless legs syndrome (RLS) Hyperglycemia Other abnormal glucose Pressure injury of deep tissue of toe, unspecified laterality- Primary documented in this encounter [facility]06-10-2025 History of Present illness Narrative* Lynn [...] current (Dreamwear) mask. See below. [facility] Weight loss. Claustrophobia (CMS/HCC) [...] in about 6 weeks (around 04/25/2025), or BALER. Lab Frequency Next Occurrence Therapeutic injection carpal [...] - AHI=1.8 @ 12 with REM; PLMI=0 ([place]inger) (BMI=38.4) - AHI=4.6 @ 11 no REM, [...] right CHOLECYSTECTOMY 2006 GALLBLADDER SURGERY HYSTERECTOMY TONSILLECTOMY 1985 Allergies Allergen [...] Block M.D. [facility] ? [address] ? [place], [place] [address] ? ? fax Neurology ? Clinical Neurophysiology ? Epilepsy ? Sleep Disorders ? Clinical Informatics documented in this encounterSt. Louis VA Medical CenterNvtqekopus52-80-8068 Evaluation note* Diagnosis Chronic renal impairment, stage [...] screening mammogram documented in this encounter [facility]05-12-2025 History of Present illness Narrative* Trace [...] Not at risk (11/15/2024) Received from [facility] PHQ-2 PHQ-9 Total Score: [...] reflexes: Goyo's absent. Ankle clonus absent. Coordination Kzbeib-ox-jyuh, rapid alternating movements and qumz-rn-wokt normal bilaterally without dysmetria. Gait Normal casual, toe, heel and tandem gait. Romberg is absent. 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 She continues to have significant discomfort in her feet to interrupt her sleep. This is likely worsened by Holadyh-Dkbog-Kvvno for which she had surgery in February [...] nasal pillows. She will take this to [facility] in [place]. We will get the original sleep study from [facility] for review. She is following with Dr. Block for sleep medicine. EVALUATION: PSG 03/2024 - CPAP 86doI50 w/heated humidification EMG of BUE 11/25 showed [...] by Trace Casas MD documented in this encounterSt. Louis VA Medical CenterBvzoiwprky94-23-7468 History of Present illness Narrative* Lynn Block [...] light and accommodation,both directly and consensually. Visual ubeno were full by confrontation. There was no [...] in all four extremities, including at least tear down worker, finger abductors, biceps, triceps, deltoid, toe flexors [...] ? [address] ? [place] [address] ? ? fax Neurology ? Clinical Neurophysiology ? Epilepsy ? Sleep Disorders ? Clinical Informatics documented in this encounterSt. Louis VA Medical CenterDyielzwpma66-55-0836 Telephone encounter Note* Telephone Encounter - Janel Allen NP - 11/02/2024 9:16 PM EST Pharmacy sends medication clarification for nortriptyline as there are two directions on one received. Per ONUR Gunderson plan increase nortriptyline 50 mg 2 daily/bedtime total of [address] [facility] CenterZemievqsak28-07-2679 Miscellaneous Notes* Telephone Encounter - Janel Allen NP - 11/02/2024 9:16 PM EST Pharmacy sends medication clarification for nortriptyline as there are two directions on one received. Per ONUR Gunderson plan increase nortriptyline 50 mg 2 daily/bedtime total of 100 mg. documented in this encounterSt. Louis VA Medical CenterVslhklnqzz46-54-[address] [place] [address] (11) [facility] [address] [place] [address] MEDICAL OFFICE [facility] [address] Dept: [phone] Loc: [phone] MD Celina Browne 44 y.o. female Patient [...] Resource Strain: Medium Risk (05/08/2024) Received from [facility] Overall Financial Resource Strain (CARDIA) Difficulty of Paying Living Expenses: Somewhat hard Food Insecurity: No Food Insecurity (05/08/2024) Received from [facility] Hunger Vital Sign Worried About Running Out of Food in the Last Year: Never true Ran Out of Food in the Last Year: Never true Transportation Needs: Unknown (05/08/2024) Re[facility] from [facility] PRAPARE - Transportation Lack of Transportation (Non-Medical): No Housing Stability: Unknown (05/08/2024) Received from [facility] Housing Stability Vital Sign Unstable Housing [...] of submandibular glands, clear salivary flow from Maverick's ducts, no stones of Felipe's ducts Temporomandibular Joint: no crepitus with motion, no tenderness on palpation, no mayo (more content not included)...[facility] Vfxcvblzhd56-43-7091 History of Present illness Narrative* Dimas Adair MD - 10/11/2024 10:05 AM EST [facility] [address] [facility] (11) [facility] [address] MEDICAL OFFICE [facility] [address] Dept: [phone] Loc: [phone] MD Celina Browne 44 y.o. female Patient [...] Resource Strain: Medium Risk (05/08/2024) Received from [facility] Overall Financial Resource Strain (CARDIA) Difficulty of Paying Living Expenses: Somewhat hard Food Insecurity: No Food Insecurity (05/08/2024) Received from [facility] Hunger Vital Sign Worried About Running Out of Food in the Last Year: Never true Ran Out of Food in the Last Year: Never true Transportation Needs: Unknown (05/08/2024) Received from [facility] PRAPARE - Transportation Lack of Transportation (Non-Medical): No Housing Stability: Unknown (05/08/2024) Received from [facility] Housing Stability Vital Sign Unstable Housing [...] Hematological: Negative. Psychiatric/Behavioral: Negative. documented in this xuvkdqpitXjzgScengj48-16-0973 Telephone encounter Note* Telephone Encounter - Gwen Meng - 09/14/2024 2:18 PM EST Voicemail Received: Our numbers [phone] actually have a question regarding a prescription that was prescribed today, If someone could please call me back. Thank you. Byjuanpablo. [facility] CenterQqyaozwbww86-64-0436 Miscellaneous Notes* Telephone Encounter - Gwen Meng - 09/14/2024 2:18 PM EST Voicemail Received: Our numbers [phone] actually have a question regarding a prescription that was prescribed today, If someone could please call me back. Thank you. Rosa Isela. documented in this encounterSt. Louis VA Medical CenterHrfmxltkmf63-13-4100 Miscellaneous Notes* Telephone Encounter - My Johnson - 08/11/2024 12:03 PM EST Patient called and requested refill of Lyrica to be sent to [facility] in [place]. documented in this encounterSt. Louis VA Medical CenterWukbrvwngk19-12-2616 Telephone encounter Note* Telephone Encounter - My Johnson - 08/11/2024 12:03 PM EST Patient called and requested refill of Lyrica to be sent to [facility] in [place]. [facility] CenterUfxwtvvvvv79-60-3279 History of Present illness Narrative* Tequila Obando [...] Grandfather Depression: At risk (01/28/2024) Received [facility] PHQ-2 PHQ-9 Total Score: 6 REVIEW [...] reflexes: Goyo's absent. Ankle clonus absent. Coordination Tzyupl-or-pklx, rapid alternating movements and klzv-ga-lrqz normal bilaterally without dysmetria. Gait Normal casual, [...] Follow up 3 months. documented in this encounterSt. Louis VA Medical CenterHtuqmtfdya62-39-6511 History of Present illness Narrative* Cheryl Miles, - 05/10/2024 2:00 PM EDT Images from [...] to clinic: 3-6 months documented in this encounterSt. Louis VA Medical CenterCzpfmltqgu01-18-8957 History of Present illness Narrative* MASSIMO Shook [...] 2022. Shefollows with an outside provider in [place] and was immobilized for an extended period [...] Foot & Ankle Surgery documented in this mfloisxdgGffsNnggex52-74-3135 NotePROCEDURE: XR ANKLE LT MIN 3 V, [...] Electronically authenticated by: PIPER MERCEDES Date: 2023-01-29 07:05[facility]04-27-2023 NotePROCEDURE: XR ANKLE LT MIN 3 V, [...] Electronically authenticated by: PIPER MERCEDES Date: 2023-01-29 07:05[facility]10-05-2022 History of Present illness Narrative* Samantha Lino [...] BMR: 1573 calories Est. total calorie needs: ~3870-4056 Lab Results Component Value Date/Time TRIG 460 [...] bread Supper: pork chop or chicken, homemade cuban fries, mashed, or baked potato with broccoli [...] session duration: 55 minutes. [facility] in [facility] encounterM[facility] Phone: 1(801) 163-391105-04-2022 History of Present illness Narrative* Christel Donohue, PT - 02/05/2022 9:45 AM EDT [facility] Date: 02/05/2022 Patient Name: Celina Gaspar : 1980 Pt No Showed Appt- Follow up call, left message on voicemail that patient discharged, but to call if has questions or concerns. Christel Donohue, PT Date: 02/05/2022 [facility]Mer[facility] Phone: [phone]) [phone] Hospital course Narrative* Christel Donohue, PT - 02/05/2022 9:45 AM EDT Images from the original note were not included. [facility] Outpatient Physical Therapy Discharge Summary Patient: Celina Gaspar : 1980 Referring Practitioner: Liliane Sawyer APRN, IRONER OR PRESSER Referral Date : 12/19/21 Diagnosis: Lumbar radiculopathy [...] 02/05/2022 [facility] this [facility] Phone: 1(696) 293-858805-02-2022 History of Present illness Narrative* Jerica Melgar - 02/03/2022 10:30 AM EDT [facility] Date: 02/03/2022 Patient Name: Celina Gaspar : 1980 Pt Cancelled Appt due to no reason for cancel. Jerica Melgar Date: 02/03/2022 documented in this [facility] Phone: 1(200) 252-153504-27-2022 History of Present illness Narrative* Beverly Rangel, JENNIFER - 01/29/2022 9:00 AM EDT Images from the original note were not included. [facility] Outpatient Physical Therapy Daily Note [...] Increase trunk ROM B rotation WFL-Not Met Fdc Goals - Time Frame for emt intermediate goals : 10 Fdc Goals Time Frame for emt intermediate goals : 10 nursing home goal 1: Decrease pain low back 2/10 at worst x3 days for completing normal activities emt intermediate goal 2: Patient to report 50% decrease in radicular symptoms L LE Post Treatment Pain: 5/10 Time In: 0859 Time Out: 0947 Timed Code Treatment Minutes: 48 Minutes Total Treatment Time: 48 Minutes Beverly Rangel PTA Date: 01/29/2022 documented in this [facility] Work Phone: [phone]) 996-748004-25-2022 History of Present illness Narrative* Christel Donohue, PT - 01/27/2022 3:45 PM EDT Images from the original note were not included. [facility] Outpatient Physical Therapy Daily Note [...] Increase trunk ROM B rotation WFL-Not Met Director Of Brand Marketing Goals - Time Frame for emt intermediate goals : 10 Fdc Goals Time Frame for nursing home goals : 10 nursing home goal 1: Decrease pain low back 2/10 at worst x3 days for completing normal activities nursing home goal 2: Patient to report 50% decrease in radicular symptoms L LE Post Treatment Pain: 4/10 Time In: 15:50 Time Out : 16:19 Timed Code Treatment Minutes: 34 Minutes Total Treatment Time: 34 Minutes Christel Donohue, PT Date: 01/27/2022 documented in this [facility] Phone: 1([phone]) 844-702004-22-2022 History of Present illness Narrative* Vanessa Castro Radha, PT - 01/24/2022 9:45 AM EDT Images from the original note were not included. [facility] Outpatient Physical Therapy Daily Note [...] 4: Increase trunk ROM B rotation WFL Director Of Brand Marketing Goals - Time Frame for emt intermediate goals : 10 Director Of Brand Marketing Goals Time Frame for emt intermediate goals : 10 emt intermediate goal 1: Decrease pain low back 2/10 at worst x3 days for completing normal activities nursing home goal 2: Patient to report 50% decrease in radicular symptoms L LE Post Treatment Pain: 5/10 Time In: 0952 Time Out: 1030 Timed Code Treatment Minutes: 38 Minutes Total Treatment Time: 38 Minutes Vanessa Garcia, PT Date: 01/24/2022 documented in this [facility] Phone: 1([phone]) 161-402204-20-2022 History of Present illness Narrative* Beverly Gutiérrez Rangel, FIRE TECHNICIAN - 01/22/2022 4:45 PM EDT [facility] Date: 01/22/2022 Patient Name: Celina Gaspar : 1980 Patient did not show up for her appointment. Message left on answering machine with a reminder of her next appointment on Thursday. Beverly Brock Claire, FIRE TECHNICIAN Date: 01/22/2022 documented in this [facility] Phone: [phone]) 165-642004-15-2022 History of Present illness Narrative* Beverly Gutiérrez Rangel, FIRE TECHNICIAN - 01/17/2022 10:30 AM EDT Images from the original note were not included. [facility] Outpatient Physical Therapy Daily Note Date: 01/17/2022 Patient Name: Celina Gaspar : 1980 (41 y.o.) Referring Practitioner: Liliane Sawyer APRN, IRONER OR PRESSER Referral Date : 12/19/21 Diagnosis: Lumbar radiculopathy [...] 4: Increase trunk ROM B rotation WFL Director Of Brand Marketing Goals - Time Frame for emt intermediate goals : 10 nursing home goal 1: Decrease pain low back 2/10 at worst x3 days for completing normal activities nursing home goal 2: Patient to report 50% decrease in radicular symptoms L LE Post Treatment Pain: 5/10 Time In: 1037 Time Out: 1107 Timed Code Treatment Minutes: 30 Minutes Total Treatment Time: 30 Minutes Beverly Rangel PTA Date: 01/17/2022 documented in this [facility] Phone: 1([phone]) 905-162904-11-2022 History of Present illness Narrative* ISAIAH Metzger - 01/13/2022 3:15 PM EDT [facility] Date: 01/13/2022 Patient Name: Celnia Gaspar : 1980 Pt Cancelled Appt due to no reason given. NABILA Metzger Date: 01/13/2022 documented in this [facility] Phone: 1([phone]) 962-565604-01-2022 History of Present illness Narrative* Beverly Rangel PTA - 01/03/2022 9:45 AM EDT Images from the original note were not included. [facility] Outpatient Physical Therapy Daily Note [...] 4: Increase trunk ROM B rotation WFL Director Of Brand Marketing Goals - Time Frame for emt intermediate goals : 10 emt intermediate goal 1: Decrease pain low back 2/10 at worst x3 days for completing normal activities nursing home goal 2: Patient to report 50% decrease in radicular symptoms L LE Post Treatment Pain: 5/10 Time In: 0948 Time Out: 1028 Timed Code Treatment Minutes: 40 Minutes Total Treatment Time: 40 Minutes Beverly Rangel PTA Date: 01/03/2022 documented in this [facility] Phone: 1(391) 607-860203-29-2022 History of Present illness Narrative* Cheryl Herman OT - 12/31/2021 9:30 AM EDT Images from the original note were not included. [facility] Outpatient Occupational Therapy Daily Note [...] Time Frame for Short term goals: STG=LTG Director Of Brand Marketing Goals Time Frame for nursing home goals : 12 visits (01/24/2022) nursing home goal 1: pt to be indepenent in HEP-MET emt intermediate goal 2: Pt to demonstrate R wrist flexion to 65 degrees or more in order to engage in daily tasks-MET emt intermediate goal 3: Pt to demonstrate R wrist extension to 60 degrees or more in order to engage in daily tasks-MET nursing home goal 4: Pt to be educated on carpal tunnel do's & dont's in order to prevent further repetitive injury to wrist-MET Timed Code Treatment Minutes: 30 Minutes Time In: 915 Time Out: 945 Timed Coded Minutes: 30 Total Treatment Time: 30 THERESA Houser, OTR/L Date: 12/31/2021 [facility]: 1(555) 532-456703-29-2022 Hospital course Narrative* Cheryl Castro NORMAN Herman - 12/31/2021 9:30 AM EDT Images from the original note were not included. [facility] Outpatient Occupational Therapy Discharge Summary [...] has been provided w/ HEP for continued pinch/tear down worker strengthening & stretching. Therapist provided pt with handout on Carpal Tunnel Dos & Dont's to avoid re-injury. Prognosis: Fair Goals Short Term Goals Time Frame for Short term goals: STG=LTG Fdc Goals Time Frame for emt intermediate goals : 12 visits (01/24/2022) emt intermediate goal 1: pt to be indepenent in HEP-MET nursing home goal 2: Pt to demonstrate R wrist flexion to 65 degrees or more in order to engage in daily tasks-MET emt intermediate goal 3: Pt to demonstrate R wrist extension to 60 degrees or more in order to engage in daily tasks-MET nursing home goal 4: Pt to be educated on carpal tunnel do's & dont's in order to prevent further repetitive injury to wrist-MET Reason for Discharge [] Poor Follow Through [] Completion of Prescribed Sessions [x] Optimal Function Achieved [] Patient Discharged Self [x] Goals Achieved Comments: Thank you for this referral THERESA Houser, OTR/L Date: 12/31/2021 [facility]: 1(477) 607-984903-29-2022 History of Present illness Narrative* Christel Donohue, PT - 12/31/2021 8:30 AM EDT Images from the original note were not included. [facility] Outpatient Physical Therapy Evaluation Date: [...] 4: Increase trunk ROM B rotation WFL emt intermediate goals Time Frame for emt intermediate goals : 10 nursing home goal 1: Decrease pain low back 2/10 at worst x3 days for completing normal activities emt intermediate goal 2: Patient to report 50% decrease in radicular symptoms L LE Patient's Goal: Decrease back pain to complete normal activities Timed Code Treatment Minutes: 15 Minutes Total Treatment Time: 45 Time In: 8:30 Time Out: 9:15 Christel Donohue, PT Date: 12/31/2021 documented in this [facility] [employer] Work Phone: 1(666) 920-404203-28-2022 History of Present illness Narrative* Cheryl Herman OT - 12/30/2021 8:30 AM EDT Images from the original note were not included. [facility] Outpatient Occupational Therapy Daily Note [...] Time Frame for Short term goals: STG=LTG Director Of Brand Marketing Goals Time Frame for nursing home goals : 12 visits (01/24/2022) emt intermediate goal 1: pt to be indepenent in HEP-MET emt intermediate goal 2: Pt to demonstrate R wrist flexion to 65 degrees or more in order to engage in daily tasks-MET nursing home goal 3: Pt to demonstrate R wrist extension to 60 degrees or more in order to engage in daily tasks-MET nursing home goal 4: Pt to be educated on carpal tunnel do's & dont's in order to prevent further repetitive injury to wrist-MET Time In: 835 Time Out: 915 Timed Coded Minutes: 40 Total Treatment Time: 40 THERESA Houser, OTR/L Date: 12/30/2021 [facility]: 1(891) 306-725403-21-2022 History of Present illness Narrative* Cheryl Castro Batsheva, OT - 12/23/2021 8:30 AM EDT Images from the original note were not included. [facility] Outpatient Occupational Therapy Evaluation Date: [...] completing these mvmts Left Hand Strength - Single Needle Operator (lbs) Handle Setting 2: 54#, 50#, 53# (52.3# ave) Left Hand Strength - Pinch (lbs) Lateral: 13.5# Tip: 8# Palmar 3 point: 11# Right Hand Strength - Single Needle Operator (lbs) Handle Setting 2: 53#, 54#, [...] Time Frame for Short term goals: STG=LTG nursing home goals Time Frame for nursing home goals : 12 visits (01/24/2022) emt intermediate goal 1: pt to be indepenent in HEP nursing home goal 2: Pt to demonstrate R wrist flexion to 65 degrees or more in order to engage in daily tasks nursing home goal 3: Pt to demonstrate R wrist extension to 60 degrees or more in order to engage in daily tasks emt intermediate goal 4: Pt to be educated on carpal tunnel do's & dont's in order to prevent further repetitive injury to wrist Patient's Goal: pt wishes to return to prior function Time In: 830 Time Out: 924 Timed Coded Minutes: 0 Total Treatment Time: 54 THERESA Houser, OTR/Matthew 12/23/2021 [facility] [employer] Phone: evalxerlav note* Diagnosis Viral illness Unspecified viral infection, in conditions classified elsewhere and of unspecified site [facility]: evaleefwon [facility]* Diagnosis Suspected COVID-19 virus infection [facility]: evalgflwzn note* Diagnosis Acute cystitis with hematuria Acute cystitis [facility]: [facility]* Diagnosis Difficult or painful urination Dysuria [facility]: evalalrqbn note* Diagnosis Acute cystitis with hematuria Acute cystitis Recurrent UTI Urinary tract infection, site not specified [facility] Phone: evaldfxjzo note* Diagnosis Frequent UTI Urinary tract infection, site not specified Urinary urgency Urgency of urination Urinary frequency [facility] Phone: evaleougqx note* Diagnosis Frequent UTI Urinary tract infection, site not specified Urinary urgency Urgency of urination Urinary frequency [facility] Phone: evallhoqqv note* Diagnosis MRSA (methicillin resistant Staphylococcus aureus) septicemia (HCC) Methicillin resistant staphylococcus aureus septicemia [facility] noteNo assessment information availableSt. Elizabeth [facility] Work Phone: Evaluation note* Diagnosis Fatigue, unspecified type Encounter for screening for HIV Mixed hyperlipidemia Hyperglycemia Other abnormal glucose Chronic renal impairment, stage 3b (HCC) [facility] Phone: evalcanlfs note* Diagnosis Acute cystitis with hematuria Acute cystitis documented in this encounter [employer] Phone: evaluation note* Diagnosis Neck mass Swelling, mass, or lump in head and neck documented in this encounter [employer] Phone: evaluation note* Diagnosis Pain of foot, unspecified laterality Closed nondisplaced fracture of second metatarsal bone of left foot, initial encounter Closed nondisplaced fracture of lateral cuneiform of left foot, initial encounter documented in this encounter [employer] Phone: evaluation note* Diagnosis Foreign body (FB) in soft tissue Residual foreign body in soft tissue documented in this encounter [employer] Phone: evaluation note* Diagnosis Pelvic pressure in female Other specified symptom associated with female genital organs documented in this encounter [employer] Phone: evalzsxybc note* Diagnosis Charcot arthropathy of midfoot- Primary Gastrocnemius equinus, unspecified laterality Foot pain, left Pain in soft tissues of limb [facility]* Diagnosis Mixed hyperlipidemia documented in this encounter [employer] note* Diagnosis Idiopathic progressive polyneuropathy Non-seasonal allergic rhinitis due to pollen documented in this [facility]* Diagnosis Thyroid nodule Nontoxic uninodular goiter documented in this encounter [employer] note* Diagnosis Thyroid nodule- Primary Nontoxic uninodular goiter [facility]* Diagnosis BUCK on CPAP- Primary 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 (CMS/HCC) Restless legs Restless legs syndrome (RLS) Bilateral carpal tunnel syndrome Carpal tunnel syndrome documented in [facility]* Diagnosis Idiopathic progressive polyneuropathy- Primary Bilateral carpal tunnel syndrome Carpal tunnel syndrome Restless legs Restless legs syndrome (RLS) Intractable 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 (CMS/HCC) documented in this encounter [facility]* Diagnosis BUCK (obstructive sleep apnea) Obstructive sleep apnea (adult) (pediatric) Hypersomnia Hypersomnia, unspecified Snoring Other dyspnea and respiratory abnormality Class 2 obesity due to excess calories with body mass index (BMI) of 38.0 to 38.9 in adult, unspecified whether serious comorbidity present documented in this encounter [facility]* Diagnosis Idiopathic progressive polyneuropathy Non-seasonal allergic rhinitis due to pollen documented in this encounter [facility]* Diagnosis Thyroid nodule- Primary Nontoxic uninodular goiter Lipoma of neck [facility] Diagnosis 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 (CMS/HCC) documented in this encounter [facility]* Diagnosis BUCK on CPAP- Primary Idiopathic progressive polyneuropathy Restless legs Restless legs syndrome (RLS) Intractable 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 (CMS/HCC) documented in this encounter [facility]Evaluation note* Diagnosis Pre-diabetes Other abnormal glucose Mixed hyperlipidemia [facility]* Diagnosis BUCK (obstructive sleep apnea)- Primary Obstructive sleep apnea (adult) (pediatric) BUCK on CPAP Claustrophobia (CMS/HCC) Other isolated or specific phobias documented in this encounter [facility]* Diagnosis BUCK (obstructive sleep apnea)- [...] apnea (adult) (pediatric) documented in this encounter [facility]* Diagnosis BUCK (obstructive sleep apnea)- Primary Obstructive sleep apnea (adult) (pediatric) BUCK on CPAP Claustrophobia Other isolated or specific phobias BUCK (obstructive sleep apnea)- Primary Obstructive sleep apnea (adult) (pediatric) Claustrophobia Other isolated or specific phobias Hypersomnia Hypersomnia, unspecified documented in this encounter [facility]* Diagnosis BUCK (obstructive sleep apnea)- [...] radiculitis nos [facility]* Diagnosis BUCK (obstructive sleep apnea)- Primary Obstructive sleep apnea (adult) (pediatric) BUCK on CPAP Claustrophobia Other isolated or specific phobias BUCK (obstructive sleep apnea)- Primary Obstructive sleep apnea (adult) (pediatric) Claustrophobia Other isolated or specific phobias Hypersomnia Hypersomnia, unspecified Idiopathic progressive polyneuropathy Non-seasonal allergic rhinitis due to pollen [facility]* Diagnosis Chronic renal impairment, stage 3a- Primary Depression with anxiety Dysthymic disorder Gastroesophageal reflux disease without esophagitis Esophageal reflux Vitamin D deficiency Unspecified vitamin D deficiency Mixed hyperlipidemia BUCK on CPAP Obstructive sleep apnea (adult) (pediatric) Restless legs Restless legs syndrome (RLS) Hyperglycemia Other abnormal glucose Stage 3a chronic kidney disease (HCC)- Primary Pre-diabetes Other abnormal glucose Stage 3a chronic kidney disease (HCC) Pre-diabetes Other abnormal glucose documented in this encounter [facility] Discharge instructions* Attachments The following attachments cannot be sent through Care Everywhere. * Diabetic Foot Ulcer (Lao) [facility] N[facility]* Other (Routine) - ClosedSpecialtyDiagnoses / ProceduresReferred By Contact Referred To ContactRadiology Diagnoses Encounter for screening mammogram for malignant neoplasm of breast Procedures [facility] BRIAN DIGITAL SCREEN BILATERAL Back, [place] [address] Phone: tel: fax: Referral IDStatusReasonStart DateExpiration DateVisits RequestedVisits [id number]/27/20254/ [facility] for [facility] Narrative* Imaging (Emergency) - Pending ReviewSpecialtyDiagnoses / ProceduresReferred By ContactReferred To ContactRadiology Diagnoses Pain in right foot Procedures MRI FOOT RIGHT W WO CONTRAST Robbin Sánchez, DPMónica [address], [place] [address] Phone: tel: fax: Referral IDStatusReasonStart DateExpiration DateVisits RequestedVisits [id number] Review [facility] Summary Purpose Family History No Family [...] PMFull Code03/05/2017 10:05 AM03/05/2017 12:56 PMDate ActivatedDate [id number]/11/2018 4:17 PM08/25/2018 8:55 PMDate ActivatedDate InactivatedComments03/19/2017 1:37 PM03/19/2017 4:32 PMDate ActivatedDate InactivatedComments03/19/2017 10:57 AM03/19/2017 1:37 PMDate ActivatedDate InactivatedComments03/05/2017 12:56 PM03/05/2017 3:55 PMDate Activated Date InactivatedComments03/05/2017 10:05 AM03/05/2017 12:56 PMDate ActivatedDate CwdgjanvqqkJchscvbn95/11/2018 4:17 PM08/25/2018 8:55 PMDate ActivatedDate InactivatedComments03/19/2017 1:37 [...] Spine Without Contrast Trace Casas MD [address] [place] [address] SpecialtyDiagnoses / ProceduresReferred By ContactReferred To ContactRadiology Diagnoses Neck mass Procedures US HEAD NECK SOFT TISSUE THYROID Felipe Adam MD [address] [place] [address] Referral IDStatusReasonStart DateExpiration DateVisits RequestedVisits [id number]/23/20228/[id number] / Procedures Referred By ContactReferred To ContactRadiology Diagnoses Thyroid nodule Procedures US THYROID Back, MD [address] [place] [address] Referral IDStatusDino DateExpiration DateVisits RequestedVisits [id number] [id number] Chief Complaint and Reason for Visit Chief Complaint M54.16 M79.10 M79.60 9 R20.9 Chief Complaint Unknown Additional Source Comments INFORMATION SOURCE (unrecogn ized section and content) DATE CREATED AUTHOR 03/30/2018 [facility] DATE CREATED AUTHOR AUTHOR'S ORGANIZ ATION 03/30/2018 [facility] DATE CREATED AUTHOR AUTHOR'S ORGANIZ ATION 09/15/2018 [facility] DATE CREATED AUTHOR AUTHOR'S ORGANIZ ATION 09/23/2018 [facility] DATE CREATED AUTHOR AUTHOR'S ORGANIZ ATION 09/26/2018 [facility] DATE CREATED AUTHOR AUTHOR'S ORGANIZ ATION 12/10/2018 [facility] DATE CREATED AUTHOR AUTHOR'S ORGANIZ ATION 12/18/2018 [facility] DATE CREATED AUTHOR AUTHOR'S ORGANIZ ATION 02/11/2019 [facility] DATE CREATED AUTHOR AUTHOR'S ORGANIZ ATION 11/30/2021 [facility] DATE CREATED AUTHOR AUTHOR'S ORGANIZ ATION 05/01/2022 [facility] DATE CREATED AUTHOR AUTHOR'S ORGANIZ ATION 01/12/2023 [facility] DATE CREATED AUTHOR AUTHOR'S ORGANIZ ATION 02/15/2023 [facility] DATE CREATED AUTHOR AUTHOR'S ORGANIZ ATION 04/04/2023 [facility] DATE CREATED AUTHOR AUTHOR'S ORGANIZ ATION 02/20/2024 [facility] DATE CREATED AUTHOR AUTHOR'S ORGANIZ ATION 10/17/2024 [facility] DATE CREATED AUTHOR AUTHOR'S ORGANIZ ATION 02/14/2025 [facility] DATE CREATED AUTHOR AUTHOR'S ORGANIZ ATION 2025 [facility] DATE CREATED AUTHOR AUTHOR'S ORGANIZ ATION 08/04/2025 [facility] Reason for Visit (unrecogniz ed section and content) ReasonCommentsSleep ApneaSpecialtyDiagnoses / ProceduresReferred By Contact Referred To ContactNeurology Diagnoses BUCK on CPAP Procedures DC OFFICE/OUTPATIENT NEW HIGH MDM 60 MINUTES Fozia Meng, BALER [address], [facility] [address] [place] [address] Phone: tel: fax: Lynn Block MD [address] [facility] [address] [place] [address] Phone: tel: fax: Referral IDStatusReasonStart DateExpiration DateVisits RequestedVisits [id number] Specialty Services Required /[id number]rldnpj / ProceduresReferred By ContactReferred To ContactClosedRadiology Diagnoses Brachial neuritis Peripheral nerve disorder Spasm of muscle Procedures MR Cervical Spine Without Contrast Trace Casas MD [address] [place] [address] SpecialtyDiagnoses / ProceduresReferred By ContactReferred To Contact Occupational Therapy Diagnoses Carpal tunnel syndrome Carpal Tunnel Syndrome Procedures Eval and treat Keenan Lozano MD [address] [facility] [address] [place] [address] [facility] [address] [place] [address] Referral IDStatusReasonStben DateExpiration DateVisits RequestedVisits [id number]/17/20223/[id number] / Procedures Referred By ContactReferred To ContactPhysical Therapy Diagnoses Radiculopathy, lumbar region Lumbar Radiculopathy Procedures Eval and treat Janel Allen, FREELANCE WEB DESIGNER - IRONER OR PRESSER [address] [place] [address] [facility] [address] [place] [phone] Referral IDStatusReasonStart DateExpiration DateVisits RequestedVisits [id number] / Procedures Referred By ContactReferred To ContactRadiology Diagnoses Neck mass Procedures US HEAD NECK SOFT TISSUE THYROID Felipe Adam MD [address] [place] [address] Referral IDStatusReasonStart DateExpiration DateVisits RequestedVisits [id number]/23/20228/[id number] / Procedures Referred By ContactReferred To ContactRadiology Diagnoses Pain of foot, unspecified laterality Closed nondisplaced fracture of lateral cuneiform of left foot, initial encounter Procedures MRI FOOT LEFT W WO CONTRAST MRI FOOT LEFT W WO CONTRAST Robbin Sánchez, DPM [address] [facility], [place] [address] Referral IDStatusMerlynssm depaul health centerStart DateExpiration DateVisits RequestedVisits [id number]/16/20229/[id number] Class SpecialtyDiagnoses / ProceduresReferred By ContactReferred To ContactDiabetes Services Diagnoses Pre-diabetes Felipe Adam MD [address] [place] [phone] [facility] [address] [place] [phone] Referral IDStatusReasonStart DateExpiration DateVisits RequestedVisits [id number] Specialty Services Required /[id number] / ProceduresReferred By ContactReferred To ContactDiabetes Services Diagnoses Pre-diabetes Felipe Adam MD [address] [place] [phone] [facility] Diabetic Education [address] [place] [address] ReasonCommentsOtherLeft foot charcot on-going since 06/2022. New x-rays today. 2nd of opinion.SpecialtyDiagnoses / ProceduresReferred By ContactReferred To ContactRadiology Diagnoses Thyroid nodule Procedures US THYROID Felipe Adam MD [address] [place] [phone] Referral IDStatusReasonStart DateExpiration DateVisits RequestedVisits [id number] [id number] DateCommentsMed Mvuzgu8210/05/2024ReasonCommentsNew PatientFNA - THYROID NODULESpecialtyDiagnoses / ProceduresReferred By ContactReferred To ContactOtolaryngology Diagnoses Thyroid nodule Felipe Adam MD [address] [place] [address] Phone: tel: fax: Dimas Adair MD [address] [place] [address] Phone: tel: fax: Referral IDStatusReasonStart DateExpiration DateVisits RequestedVisits [id number] [id number] UlcerNiranjan presents to ER with a skin ulcer [...] UlcerRT toe 2 ulcerReasonCommentsFollow-upRT foot pain/Review MRI resultsReasonCommentsMed Refill Care Teams (unrecognized sec tion and content) Team MemberRelationshipSpecialtyStart DateEnd Date Felipe Adam MD [address] [place] [phone] PCP - GeneralInternal Medicine11/14/11Team MemberRelationshipSpecialtyStart Date End Date Back, MD Felipe [address] [place] [phone] PCP - GeneralInternal Medicine11/14/11Team MemberRelationshipSpecialtyStart Date End Date Back, MD Fel[address] [place] [address] PCP - GeneralInternal Medicine11/14/11Team MemberRelationshipSpecialtyStart Date End Date Back, MD Felipe [address] [place] [address] PCP - GeneralInternal Medicine11/14/11Team MemberRelationshipSpecialtyStart Date End Date Back, MD Felipe [address] [place] [address] PCP - GeneralInternal Medicine11/14/11Team MemberRelationshipSpecialtyStart Date End Date Back, MD Felipe [address] [place] [address] PCP - GeneralInternal Medicine11/14/11Team MemberRelationshipSpecialtyStart Date End Date Back, MD Felipe [address] [place] [phone] PCP - GeneralInternal Medicine11/14/11 Team Status: Inactive Member Role Status Dates NON STAFF Primary Care Provider Active Trace [facility] ProviderActive Team Status: Active Member Role Status Dates NON STAFF Primary Care Provider Active Team MemberRelationshipSpecialtyStart DateEnd Date Back, MD [address] [place] [address] PCP - GeneralInternal Medicine11/14/11Team MemberRelationshipSpecialtyStart Date End Date Back, MD Felipe [address] [place] [phone] PCP - GeneralInternal Medicine11/14/11Team MemberRelationshipSpecialtyStart Date End Date Back, MD Felipe [address] [place] [phone] PCP - GeneralInternal Medicine11/14/11Team MemberRelationshipSpecialtyStart Date End Date Back, MD Felipe [address] [place] [phone] PCP - GeneralInternal Medicine11/14/11Team MemberRelationshipSpecialtyStart Date End Date Back, MD Felipe [address] [place] [address] PCP - GeneralInternal Medicine11/14/11Team MemberRelationshipSpecialtyStart Date End Date Back, MD Felipe [address] [place] [phone] PCP - GeneralInternal Medicine11/14/11Team MemberRelationshipSpecialtyStart Date End Date Back, MD Felipe [address] [place] [phone] PCP - GeneralInternal Medicine11/14/11Team MemberRelationshipSpecialtyStart Date End Date Back, MD Felipe [address] [place] [phone] PCP - GeneralInternal Medicine11/14/11Team MemberRelationshipSpecialtyStart Date End Date Back, MD Felipe [address] [place] [phone] PCP - GeneralInternal Medicine03/26/15Team MemberRelationshipSpecialtyStart Date End Date Back, MD Felipe [address] [place] [phone] PCP - GeneralInternal Medicine11/14/11 Team Status: Inactive Member Role Status Dates Frances Harris DPM MS Attending Provider Active Start: February 15, 2024 End: February 15, 2024Team MemberRelationshipSpecialtyStart DateEnd Date Back, MD Felipe [address] [facility] PCP - GeneralInternal Medicine11/14/11Team MemberRelationshipSpecialtyStart Date End Date Back, MD Felipe [address] [place] [phone] PCP - GeneralInternal Medicine11/14/11Te MemberRelationshipSpecialtyStart Date End Date Back, MD Felipe [address] [place] [phone] PCP - GeneralInternal Medicine03/26/15Team MemberRelationshipSpecialtyStart Date End Date Back, MD Felipe [address] [place] [phone] PCP - GeneralInternal Medicine03/26/15Team MemberRelationshipSpecialtyStart Date End Date Back, MD Felipe [address] [facility], [facility] PCP - GeneralInternal Medicine11/14/11Team MemberRelationshipSpecialtyStart Date End Date Back, MD Alcides [address] [place] [phone] PCP - GeneralFamily Medicine12/08/24Team MemberRelationshipSpecialtyStart DateEnd Date Back, MD Alcides [address] [facility], [facility] PCP - GeneralFamily Medicine12/08/24Team MemberRelationshipSpecialtyStart DateEnd Date Back, MD Felipe [address] [facility] [facility] [place] [address] PCP - GeneralInternal Medicine2Team MemberRelationshipSpecialtyStart Date End Date Back, MD Alcides 64 [facility], [place] [address] PCP - GeneralFamily Medicine12/08/24Team MemberRelationshipSpecialtyStart DateEnd Date Back, MD Felipe 64 [facility], [place] [address] PCP - GeneralInternal Medicine11/14/11Team MemberRelationshipSpecialtyStart Date End Date Back, MD Alcides 64 [facility], [place] [address] PCP - GeneralFamily Medicine12/08/24Team MemberRelationshipSpecialtyStart DateEnd Date Back, MD Alcides 64 [facility], [place] [address] PCP - GeneralFamily Medicine12/08/24Team MemberRelationshipSpecialtyStart DateEnd Date Back, MD Alcides [address] [place] [address] PCP - GeneralFamily Medicine12/08/24Team MemberRelationshipSpecialtyStart DateEnd Date Back, MD Alcides [address] [place] [address] PCP - GeneralFamily Medicine12/08/24Team MemberRelationshipSpecialtyStart DateEnd Date Back, MD Felipe [address] [facility], [place] [address] PCP - GeneralInternal Medicine11/14/11Team MemberRelationshipSpecialtyStart Date End Date Back, MD Felipe 64 . [facility], [place] [address] PCP - GeneralInternal Medicine11/14/11Team MemberRelationshipSpecialtyStart Date End Date Back, MD Alcides [address] [facility], [place] [address] PCP - GeneralFamily Medicine12/08/24Team MemberRelationshipSpecialtyStart DateEnd Date Back, MD Felipe 64 . [facility], [place] [address] PCP - GeneralInternal Medicine11/14/11Team MemberRelationshipSpecialtyStart Date End Date Back, MD Alcides 64 [place] [address] PCP - GeneralFamily Medicine12/08/24Team MemberRelationshipSpecialtyStart DateEnd Date Back, MD Alcides [address] [place] [address] PCP - GeneralFamily Medicine12/08/24Team MemberRelationshipSpecialtyStart DateEnd Date Back, MD Felipe [address] [place] [address] PCP - GeneralInternal Medicine11/14/11Team MemberRelationshipSpecialtyStart Date End Date Alcides Adam MD [address] [place] [address] PCP - GeneralFamily Medicine12/08/24 Goals (unrecognized section and content) Goals may [...] ered Medications (unrecognized section and content) Medication Order507/ ciprofloxacin (CIPRO) IVPB 400 mg (COMPLETED) 400 [...] RN) * 2316 (Stopped - Provider: Rebeca Moore, MANINDER) FOR RECORDS PERTAINING TO PATIENTS WHO ARE [...] BE BASED ON THE PRIMARY CLINICAL RECORDS. [facility]. provides no warranty or guarantee of the accuracy or completeness of information in this document.
== END 2025-08-09 14:19 | disposition home or self-care (01) ==
LOC: WC 14:18
PROVIDERS: PCP Internal Medicine; Visit Provider Physician Assistant
DX: E11.621 Type 2 diabetes mellitus with foot ulcer (principal); L97.422 Non-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 with fat layer exposed; L97.515 Non-pressure chronic ulcer of other part of right foot with muscle involvement without evidence of necrosis
CPT/HCPCS: 29445

== ENCOUNTER 2025-08-11 13:19 | Outpatient (OUT) | payer OTHER, SELFPAY ==
--- OUTSIDE RECORDS SUMMARY | 2024-03-15 05:40 | XMS_ITS ---
Author Organization The [facility] in [place] Address [address] [place] [address] Care Team Providers Care Planograph Operator Name Role Phone None, Unknown or Primary Care Provider Unavailab Roxanne Rodríguez Unavailable [phone] REASON FOR VISIT splint change, skin check Encounters Encounter Location Date Provider Diagnosis [facility] (PODIATRY) [address] [place] [address] [place] [address] 03/15/2024 Roxanne Segura Plan Of Treatment No Information Progress Notes * Celina GASPAR MDOB: 9 (45 yo F)Acc No.[id number]:03/15/2024 UNLOCKED PROGRESS NOTE Progress Note Patient: Celina DRAKE :?SABINA MckeonCDOB:1980???Age:43 Y ???Sex:FemaleDate:4Phone:[phone]:[address] [facility]Pcp:Unknown or None Subjective: * Chief Complaints: * 1 . Splint change, skin check. * Medical History: Objective: * Vitals: Assessment: Plan: * Treatment: * * Electronic signature of Roxanne Segura PA-C on 08/11/2025 at 01:22 PM ESTSign off status: PendingVisit Status:?CANC (Cancelled) * Provider: Brady Segura PA-C Date: 0 03/15/2024 Generated for Printing/Faxing/eTransmitting on:?08/11/2025 01:22 PM EST
--- OUTSIDE RECORDS SUMMARY | 2024-04-14 06:20 | XMS_ITS ---
Author Organization The [facility] in [place] Address [address] [place] [address] Care Team Providers Care Client Services Account Manager Name Role Phone None, Unknown or Primary Care Provider Unavailab Roxanne Rodríguez Unavailable [phone] Encounters Encounter Location Date Provider Diagnosis [facility] (PODIATRY) [address] [place] [address] [place] [address] 04/14/2024 Roxanne Segura Plan Of Treatment No Information Progress Notes * Celina GASPAR MDOB: 9 (45 yo F)Acc No.[id number]:04/14/2024 UNLOCKED PROGRESS NOTE Nurse Visit Patient: Rubén Celina YAÑEZ :?SABINA MckeonCDOB:1980???Age:43 Y ???Sex:FemaleDate:4Phone:[phone]:[address] [place] [address]Pcp:Unknown or None Subjective: * Chief Complaints: * * Medical History: Objective: * Vitals: Assessment: Plan: * Treatment: * * Electronic signature of Roxanne Segura PA-C on 08/11/2025 at 01:23 PM ESTSign off status: PendingVisit Status:?CANC (Cancelled) * Provider: Brady Segura PA-C Date: 0 04/14/2024 Generated for Printing/Faxing/eTransmitting on:?08/11/2025 01:23 PM EST
--- OUTSIDE RECORDS SUMMARY | 2025-08-02 10:54 | XMS_ITS | Encounter Summary ---
Author Organization [facility] Address [address], [address] [place] [address] Care Team Providers Care Supervisor [employer] Name Role Phone Felipe Adam MD Primary Care Provider [phone] Encounter Details DateTypeDepartmentCare Team (Latest Contact Info)Knzbkhunpzg10/29/2025 11:54 AM EDT - 08/02/2025 11:59 PM EDTHospital Encounter [facility] [address] [place] [address] Stage 3a chronic kidney disease (HCC); Pre-diabetes Discharge Disposition: Home or Self Care Social History Tobacco UseTypesPacks/DayYears UsedDateSmoking Tobacco: NeverPassive Smoke Exposure: NeverSmokeless Tobacco: NeverAlcohol UseStandard Drinks/WeekCommentsNo 0 (1 standard drink = 0.6 oz pure alcohol)[facility] UtilitiesAnswerDate RecordedIn the past 12 months has the [employer], gas, oil, or water [employer] threatened to shut off services in your [...] like food, housing, medical care, and heating?Somewhat hard4PHQ-2AnswerDate RecordedPHQ-9 Total Pobtv382Hunger Vital SignAnswerDate RecordedWithin the past 12 months, [...] steady place to sleep or [facility] ([facility] now)?No05/08/2024Housing Stability Vital SignAnswerDate RecordedIn the last 12 months, was there a time when you were not able to pay the mortgage or rent on time?No11/15/2024In the past 12 months, how many times have you moved where you were living? At any time in the past 12 months, were you homeless or living in a alf (including now)?No11/15/2024Food InsecurityAnswerDate RecordedWithin the past 12 months, you worried that your food would run out before you got the money to buy more.Within the past 12 months, the food you bought just didn't last and you didn't have money to get more.CommentsNoSex and Gender InformationValueDate RecordedSex Assigned at KnpthPoqjxp94/13/2025 9:45 AM EDTLegal IeiHzghfw36/10/2013 10:13 AM ESTGender LpwwnxtzTrutxt90/05/2021 8:11 AM ESTSexual TbxdddngvthVdnpfzrr70/05/2021 8:11 AM ESTOccupationIndustryJob Start DateJob End DateNot on fileNot on fileNot on fileNot on filedocumented as of this encounter Medications at Time of Discharge MedicationSigDispense QuantityRefillsLast FilledStart DateEnd Date ciprofloxacin (CIPRO) 500 MG tablet 08/02/2025 fluconazole (DIFLUCAN) 100 MG tablet Take 1 tablet by mouth daily08/02/2025 dapagliflozin (FARXIGA) 10 MG tablet Indications:Stage 3a chronic kidney disease (HCC),Pre-diabetesTake 1 tablet by mouth every morning 90 tablet clindamycin (CLEOCIN) 300 MG capsule 04/13/2025 ALPRAZolam (XANAX) 0.25 MG tablet Take 1 tablet by mouth nightly.03/14/2025 nortriptyline (PAMELOR) 50 MG capsule Take 3 capsules by mouth kedscob48 famotidine (PEPCID) 20 MG tablet Indications:Gastroesophageal reflux [...] MG tablet Take 1 tablet by mouth wmeojuz6604/19/2022 pregabalin (LYRICA) 300 MG capsule Take 1 capsule by mouth 2 times daily.02/20/2022 Biotin 1000 MCG TABS Take 1 tablet by mouth daily02/26/[address] TABLET ON OR UNDER THE TONGUE EVERY OTHER DAY01/02/2022 sertraline (ZOLOFT) 100 MG tablet Take 2 tablets by mouth daily Currently decreasing this cackojgtbc36/26/2020 b complex vitamins capsule Take 1 capsule by mouth daily Cholecalciferol (VITAMIN D) 2000 UNITS CAPS capsule Indications:Vitamin D deficiencyTake 1 capsule by mouth daily. 30 capsule 12111/12/2013documented as of this encounter Plan of Treatment Not on file documented as of this encounter Procedures Procedure NamePriorityDate/TimeAssociated DiagnosisCommentsHEMOGLOBIN N2VPeofimu 08/02/2025 11:57 AM EDT Pre-diabetes BASIC METABOLIC QYXQSFonvdmg04/29/2025 11:57 AM EDT Stage 3a chronic kidney disease (HCC) Pre-diabetes documented in this encounter Results * Hemoglobin A1C (08/02/2025 11:57 AM EDT)ComponentValueRef RangeTest Method Analysis TimePerformed AtPathologist SignatureHemoglobin A1C5.24.0 - 6.0 % 08/02/2025 11:57 AM EDTMERCY LABORATORIESEstimated Avg Cfshmrz199hb/dL 08/02/2025 11:57 AM EDTMERCY LABORATORIESComment: The ADA and AACC recommend providing the estimated average glucose result to permit better patient understanding of their HBA1c result. Specimen (Source)Anatomical Location / LateralityCollection Method / Volume Collection TimeReceived TimeBloodBLOOD SPECIMEN / Tejfjlx2708/02/2025 11:57 AM EDT 08/02/2025 11:58 AM EDT Narrative Authorizing ProviderResult TypeResult StatusBilly Back MDCHEMISTRY ORDERABLES Final ResultPerforming OrganizationAddressCity/State/ZIP CodePhone Number [facility] [address] [place] [address], [facility] [phone] [facility] [address] [place] [address], [facility] [phone] * (ABNORMAL) Basic Metabolic Panel (08/02/2025 11:57 AM EDT)ComponentValueRef RangeTest MethodAnalysis TimePerformed AtPathologist EahvuvxadWkynvo665218 - 144 mmol/L1 11:57 AM [employer] [facility] LABPotassium4.33.7 - 5.3 mmol/L1 11:57 AM [employer] [facility] TCJZrnaevhe76691 - 107 mmol/L1 11:57 AM [employer] [facility] DGRES22105 - 31 mmol/L 08/02/2025 11:57 AM [employer] [facility] LABAnion Gap99 - 17 mmol/L 08/02/2025 11:57 AM [employer] EBOSvrkqui5602 - 99 mg/dL 08/02/2025 11:57 AM [employer] WQGCID678 - 20 mg/dL08/02/2025 11:57 AM [employer] LABCreatinine1.5(H)0.5 - 0.9 mg/dL08/02/2025 11:57 AM [employer]ARD LABEst, Glom Filt Rate43(L)>60 mL/min/1.73m2 08/02/2025 11:57 AM [employer]ARD LABComment: ? These results are not intended [...] following therapy that affects renal tubular secretion. Calcium9.78.6 - 10.4 mg/dL08/02/2025 11:57 AM [employer] Specimen (Source)Anatomical Location / LateralityCollection Method / Volume Collection TimeReceived TimeBloodBLOOD SPECIMEN / Krlmqqd8208/02/2025 11:57 AM EDT 08/02/2025 11:58 AM EDT Narrative Authorizing ProviderResult TypeResult StatusBilly Back MDCHEMISTRY ORDERABLES Final ResultPerforming OrganizationAddressCity/State/ZIP CodePhone Number [facility] [address] [place] [id number], [facility] [phone] documented in this encounter Visit Diagnoses Diagnosis Stage 3a chronic kidney disease (HCC) Pre-diabetes Other abnormal glucose documented in this encounter Additional Health Concerns InfectionOnset DateLast IndicatedResolved TimeMRSA Comment:Blood and spine 05/16/2016MDRO (multi-drug resistant organism) Comment:E. Coli urine 05/02/2022/2documented as of this encounter Care Teams Team MemberRelationshipSpecialtyStart DateEnd Date Back, MD Felipe [address] [place] [address] PCP - GeneralInternal Medicine11/14/11documented as of this encounter
--- OUTSIDE RECORDS SUMMARY | 2025-08-03 10:00 | XMS_ITS | Encounter Summary ---
Author Organization Denton Sullivan [facility] Address [address], [address] [place] [address] Care Team Providers Care Pr Specialist Name Role Phone Felipe Adam MD Primary Care Provider Reason for Visit * ReasonCommentsChronic Kidney DiseaseStage 3prediabeticGastroesophageal Reflux Peripheral NeuropathySleep ApneaOn cpapYeast InfectionPatient currently has yeast infection and thrush from being on ATB. Encounter Details DateTypeDepartmentCare Team (Latest Contact Info)Nwrlukosfbz45/30/2025 11:00 AM EDTOffice Visit [facility] Primary Care of [address] [phone] Felipe Adam MD [address] [place] [id number] Pre-diabetes (Primary Dx); Depression with anxiety; Vitamin D deficiency; Gastroesophageal reflux disease without esophagitis; Chronic renal impairment, stage 3b; BUCK on CPAP; Restless legs; Chronic constipation; Pure hypertriglyceridemia Social History Tobacco UseTypesPacks/DayYears UsedDateSmoking Tobacco: NeverPassive Smoke Exposure: NeverSmokeless Tobacco: NeverAlcohol UseStandard Drinks/WeekCommentsNo 0 (1 standard drink = 0.6 oz pure alcohol)[facility] UtilitiesAnswerDate RecordedIn the past 12 months has the [employer], gas, oil, or water [employer] threatened to shut off services in your [...] medical care, and heating?Somewhat hard05/08/2024HQ-2AnswerDate RecordedPHQ-9 Total Ambca443Hunger Vital SignAnswerDate RecordedWithin the past 12 months, [...] steady place to sleep or slept in [facility] (including now)?No05/08/2024Housing Stability Vital SignAnswerDate RecordedIn the last 12 months, was there a time when you were not able to pay the mortgage or rent on time?No11/15/2024In the past 12 months, how many times have you moved where you were living? At any time in the past 12 months, were you homeless or living in a long-term (including now)?No11/15/2024Food InsecurityAnswerDate RecordedWithin the past 12 months, you worried that your food would run out before you got the money to buy more.Within the past 12 months, the food you bought just didn't last and you didn't have money to get more.CommentsNoSex and Gender InformationValueDate RecordedSex Assigned at TxmbdSgmmfc55/13/2025 9:45 AM EDTLegal UuxBbfgxc99/10/2013 10:13 AM ESTGender HtfraensXoyeww04/05/2021 8:11 AM ESTSexual VnoxcpuwapvDmfluldf02/05/2021 8:11 AM ESTOccupationIndustryJob Start DateJob End DateNot on fileNot on fileNot on fileNot on filedocumented as of this encounter Last Filed Vital Signs Vital SignReadingTime TakenCommentsBlood Vbxoymat461/7810 10:52 AM EDT Ukljf533908/03/2025 10:52 AM EDTTemperature--Respiratory Rate--Oxygen Saturation-- Inhaled Oxygen Concentration--Cjmiqd31.8 kg (220 lb)08/03/2025 10:52 AM EDT Height--Body Mass Index42.9704/04/2025 9:24 PM EDTdocumented in this encounter Patient Instructions * Patient Instructions* Felipe Adam MD - 08/03/2025 11:26 AM EDT Assessment & Plan Pre-diabetes HgbA1C has improved to 5.2 on Farxiga. Continue on a low carb diet with repeat labs in 6 months. Orders: Comprehensive Metabolic Panel; Future Hemoglobin A1C; Future Depression with anxiety Controlled on Zoloft, Pamelor, and Xanax. Follows with Psychiatry every 3 months. Vitamin D deficiency Last level was low. Her vitamin d was increased to 2000 units daily. Gastroesophageal reflux disease without esophagitis Has been stable off medication. Chronic renal impairment, stage 3b Follows with Nephrology. Avoid NSAIDS and keep BP well controlled. BUCK on CPAP Controlled on CPAP. Restless legs Controlled on Requip. No change in medication. Chronic constipation Controlled on Linzess PRN. Pure hypertriglyceridemia Controlled on Lopid. No change in medication. Orders: Lipid Panel; Future Celina was instructed to follow up in the clinic in 6 months for check up or as needed with any medical issues. documented in this encounter Progress Notes * Felipe Adam MD - 08/03/2025 11:07 AM EDT Images from the original note were not included. Celina Egan (: 1980) is a 45 y.o. female,Established patient, here for evaluation of thefollowing chief complaint(s): Chronic Kidney Disease (Stage 3), prediabetic, Gastroesophageal Reflux, Peripheral Neuropathy, Sleep Apnea (On cpap), and Yeast Infection (Patient currently has yeast infection and thrush from being on ATB.) Assessment & Plan Pre-diabetes HgbA1C has improved to 5.2 on Farxiga. Continue on a low carb diet with repeat labs in 6 months. Orders: Comprehensive Metabolic Panel; Future Hemoglobin A1C; Future Depression with anxiety Controlled on Zoloft, Pamelor, and Xanax. Follows with Psychiatry every 3 months. Vitamin D deficiency Last level was low. Her vitamin d was increased to 2000 units daily. Gastroesophageal reflux disease without esophagitis Has been stable off medication. Chronic renal impairment, stage 3b Follows with Nephrology. Avoid NSAIDS and keep BP well controlled. BUCK on CPAP Controlled on CPAP. Restless legs Controlled on Requip. No change in medication. Chronic constipation Controlled on Linzess PRN. Pure hypertriglyceridemia Controlled on Lopid. No change in medication. Orders: Lipid Panel; Future Celina was instructed to follow up in the clinic in 6 months for check up or as needed with any medical issues. Subjective Celina presents for a check up on her medical conditions CKD, pre diabetes, GERD, neuropathy, BUCK. Amyadmits to new problems (On 2 antibiotics for osteomyelitis of the toe for MRSA and has a sore on the left foot). Medications were reviewed with Celina, she is tolerating the medication. Bowels are regular. There has not been rectal bleeding. Celina denies urinary complications, the urine stream is good. Celina denies chest pain and denies increasing shortness of breath (chronic SOB with exertion). Labs from yesterday reviewed. Depression / anxiety is stable. Past Medical History: No date: Acute metabolic encephalopathy No date: Anxiety 09/29/2017: Basal cell carcinoma of skin Comment: Overview: Added automatically from request for surgery [id number] 09/16/2017: Basal cell carcinoma of skin of face 03/05/2017: Carpal tunnel syndrome on right No date: Charcot ankle, left No date: Chronic back pain 07/20/2012: Chronic fatigue Not sure: Chronic kidney disease Comment: Dr. Calvillo 10/25/2013: CRI (chronic renal insufficiency) 06/24/2013: Depression with anxiety No date: Discitis of thoracic region No date: Elevated C-reactive protein (CRP) 08/20/2018: Epidural abscess 09/08/2014: GERD (gastroesophageal reflux disease) 06/24/2013: Hyperglycemia No date: Hyperlipidemia No date: Infection of thoracic spine (HCC) No date: Kidney disease 08/15/2018: Lactic acidosis 03/19/2017: Mixed hyperlipidemia 08/24/2018: MRSA (methicillin resistant staph aureus) culture positive Comment: spine No date: MRSA (methicillin resistant Staphylococcus aureus) septicemia (HCC) No date: MRSA bacteremia 02/05/2018: Neoplasm of uncertain behavior of skin 05/11/2020: BUCK on CPAP 12/01/2017: Peripheral neuropathy No date: Restless legs syndrome 01/13/2014: Seasonal allergies 08/15/2018: Sepsis (HCC) 08/20/2018: Septic arthritis (HCC) 05/09/2014: Thoracic degenerative disc disease No date: Thyroid nodule No date: Vitamin D deficiency Comment: h/o Past Surgical History: 08/23/2018: BACK SURGERY Comment: LUMBAR EXPLORATION,I&D OF ABSCESS T-4 AND T5, SPINE TABLE C-ARM (N/A ) 03/05/2017: CARPAL TUNNEL RELEASE; Right Comment: Dr. Martínez 03/19/2017: CARPAL TUNNEL RELEASE; Left 11/29/2021: CARPAL TUNNEL RELEASE; Right Comment: RIGHT CARPAL TUNNEL REVISION performed by Keenan Lozano MD at [facility] OR 2006: CHOLECYSTECTOMY 08/25/2018: PIC POWERPIC SINGLE Comment: 10/2017: HYSTERECTOMY (CERVIX STATUS UNKNOWN) No date: PARTIAL HYSTERECTOMY (CERVIX NOT REMOVED) 03/19/2017: [place] NEUROPLASTY &/TRANSPOS MEDIAN NRV CARPAL TUNNE; Left Comment: CARPAL TUNNEL RELEASE performed by Zev Martínez DO at [facility] OR 03/05/2017: [place] NEUROPLASTY &/TRANSPOS MEDIAN NRV CARPAL TUNNE; Right Comment: CARPAL TUNNEL RELEASE performed by Zev Martínez DO at [facility] OR 08/23/2018: [place] OFFICE/OUTPT VISIT,PROCEDURE ONLY; N/A Comment: LUMBAR EXPLORATION,I&D OF ABSCESS T-4 AND T5, SPINE TABLE C-ARM performed by Basilio Mccray MD at [facility] OR No date: SPINE SURGERY 1984: TONSILLECTOMY 02/214: UPPER GASTROINTESTINAL ENDOSCOPY Comment: multiple biopsies Social History Socioeconomic History Marital status: Spouse name: Not on file Number of children: Not on file Years of education: Not on file Highest education level: Not on file Occupational History Employer: UNEMPLOYED Tobacco Use Smoking status: Never Passive exposure: Never Smokeless tobacco: Never Vaping Use Vaping status: Never Used Substance and Sexual Activity Alcohol use: No Drug use: No Sexual activity: Yes Partners: Male Other Topics Concerns: Not on file Social History Narrative Not on file Social Drivers of Health Financial Resource Strain: Medium Risk (05/08/2024) Overall Financial Resource Strain (CARDIA) Difficulty of Paying Living Expenses: Somewhat hard Food Insecurity: No Food Insecurity (11/15/2024) Hunger Vital Sign Worried About Running Out of Food in the Last Year: Never true Ran Out of Food in the Last Year: Never true Transportation Needs: No Transportation Needs (11/15/2024) PRAPARE - Transportation Lack of Transportation (Medical): No Lack of Transportation (Non-Medical): No Physical Activity: Not on file Stress: Not on file Social Connections: Not on file Intimate Partner Violence: Not on file Housing Stability: Low Risk (11/15/2024) Housing Stability Vital Sign Unable to Pay for Housing in the Last Year: No Number of Times Moved in the Last Year: 0 Homeless in the Last Year: No Review of patient's family history indicates: Problem: Cancer Relation: Mother Age of Onset: (Not Specified) Comment: lung Problem: Diabetes Relation: Mother Age of Onset: (Not Specified) Problem: High Blood Pressure Relation: Mother Age of Onset: (Not Specified) Current Outpatient Medications on File Prior to Visit: ciprofloxacin (CIPRO) 500 MG tablet, , Disp: , Rfl: fluconazole (DIFLUCAN) 100 MG tablet, Take 1 tablet by mouth daily, Disp: , Rfl: sulfamethoxazole-trimethoprim (BACTRIM;SEPTRA) 400-80 MG per tablet, Take 2 tablets by mouth 2 times daily, Disp: , Rfl: dapagliflozin (FARXIGA) 10 MG tablet, Take 1 tablet by mouth every morning, Disp: 90 tablet, Rfl: 1 clindamycin (CLEOCIN) 300 MG capsule, , Disp: , Rfl: ALPRAZolam (XANAX) 0.25 MG tablet, Take 1 tablet by mouth nightly., Disp: , Rfl: nortriptyline (PAMELOR) 50 MG capsule, Take 3 capsules by mouth nightly, Disp: , Rfl: famotidine (PEPCID) 20 MG tablet, TAKE 1 TABLET TWICE A DAY, Disp: 180 tablet, Rfl: 3 gemfibrozil (LOPID) 600 MG tablet, TAKE 1 TABLET TWICE A DAY 30 MINUTES BEFORE BREAKFAST AND SUPPER, Disp: 180 tablet, Rfl: 3 rOPINIRole (REQUIP) 1 MG tablet, Take 1 tablet by mouth 3 times daily, Disp: 270 tablet, Rfl: 1 linaclotide (LINZESS) 145 MCG capsule, Take 1 capsule by mouth daily, Disp: 90 capsule, Rfl: 1 cephALEXin (KEFLEX) 250 MG capsule, Take 1 capsule by mouth daily as needed (post-coital UTI prophylaxis) (Patient not taking: Reported on 08/03/2025), Disp: 30 capsule, Rfl: 1 calcium carbonate (OSCAL) 500 MG TABS tablet, Take 1 tablet by mouth 2 times daily, Disp: , Rfl: montelukast (SINGULAIR) 10 MG tablet, TAKE 1 TABLET NIGHTLY, Disp: 90 tablet, Rfl: 3 fluticasone (FLONASE) 50 MCG/ACT nasal spray, USE 2 SPRAYS IN EACH NOSTRIL DAILY, Disp: 48 g, Rfl: 3 baclofen (LIORESAL) 10 MG tablet, Take 1 tablet by mouth nightly, Disp: , Rfl: pregabalin (LYRICA) 300 MG capsule, Take 1 capsule by mouth 2 times daily., Disp: , Rfl: Biotin 1000 MCG TABS, Take 1 tablet by mouth daily, Disp: , Rfl: NURTEC 75 MG TBDP, PLACE 1 TABLET ON OR UNDER THE TONGUE EVERY OTHER DAY, Disp: , Rfl: sertraline (ZOLOFT) 100 MG tablet, Take 2 tablets by mouth daily Currently decreasing this medication, Disp: , Rfl: b complex vitamins capsule, Take 1 capsule by mouth daily, Disp: , Rfl: Cholecalciferol (VITAMIN D) 2000 UNITS CAPS capsule, Take 1 capsule by mouth daily., Disp: 30 capsule, Rfl: 12 No current facility-administered medications on file prior to visit. -- Topiramate -- Made her feel overly thirsty and caused bad smell and taste. Lab Results Component Value Date NA 138 08/02/2025 K 4.3 08/02/2025 CL 102 08/02/2025 CO2 27 08/02/2025 BUN 17 08/02/2025 CREATININE 1.5 (H) 08/02/2025 GLUCOSE 92 08/02/2025 CALCIUM 9.7 08/02/2025 BILITOT 0.5 04/14/2025 ALKPHOS 109 (H) 04/14/2025 AST 22 04/14/2025 ALT 23 04/14/2025 LABGLOM 43 (L) 08/02/2025 GFRAA 55 (L) 06/25/2022 GLOB NOT REPORTED 05/25/2017 Lab Results Component Value Date LABA1C 5.2 08/02/2025 Lab Results Component Value Date EAG 103 08/02/2025 Lab Results Component Value Date CHOL 158 04/14/2025 CHOL 179 11/14/2024 CHOL 170 05/02/2024 Lab Results Component Value Date TRIG 341 (H) 04/14/2025 TRIG 407 (H) 11/14/2024 TRIG 323 (H) 05/02/2024 Lab Results Component Value Date HDL 31 (L) 04/14/2025 HDL 31 (L) 11/14/2024 HDL 28 (L) 05/02/2024 No components found for: LDLCHOLESTEROL , LDLCALC Lab Results Component Value Date VLDL 68 (H) 04/14/2025 VLDL 11/14/2024 Can not be calculated VLDL 65 05/02/2024 Lab Results Component Value Date CHOLHDLRATIO 5.1 (H) 04/14/2025 CHOLHDLRATIO 5.8 11/14/2024 CHOLHDLRATIO 6.0 05/02/2024 Review of Systems Constitutional: Negative. HENT: Negative for congestion, ear pain, rhinorrhea, sneezing and sore throat. Eyes: Negative for visual disturbance. Respiratory: Negative for cough, chest tightness and shortness of breath. Cardiovascular: Negative for chest pain and palpitations. Gastrointestinal: Negative for abdominal pain, blood in stool, constipation, diarrhea and nausea. Genitourinary: Negative for difficulty urinating, dysuria, frequency, menstrual problem and urgency. Musculoskeletal: Positive for arthralgias. Negative for joint swelling, myalgias and neck pain. Skin: Negative. Neurological: Negative for syncope. Psychiatric/Behavioral: Negative. Objective Physical Exam Constitutional: Appearance: She is well-developed. HENT: Head: Atraumatic. Eyes: Conjunctiva/sclera: Conjunctivae normal. Cardiovascular: Rate and Rhythm: Normal rate and regular rhythm. Heart sounds: Normal heart sounds. Pulmonary: Effort: Pulmonary effort is normal. Breath sounds: Normal breath sounds. Abdominal: Palpations: Abdomen is soft. Tenderness: There is no abdominal tenderness. Musculoskeletal: General: Normal range of motion. Cervical back: Normal range of motion and neck supple. Lymphadenopathy: Cervical: No cervical adenopathy. Skin: Findings: No rash. Neurological: Mental Status: She is alert. Psychiatric: Behavior: Behavior normal. Thought Content: Thought content normal. An electronic signature was used to authenticate this note. --Felipe Adam MD documented in this encounter Plan of Treatment NameTypePriorityAssociated DiagnosesOrder ScheduleComprehensive Metabolic Panel LabRoutine Pre-diabetes Expected: 02/01/2026 (Approximate), Expires: 08/03/2026Hemoglobin U5ONndXmhsqyj Pre-diabetes Expected: 02/01/2026 (Approximate), Expires: 08/03/2026Lipid PanelLabRoutine Pure hypertriglyceridemia Expected: 02/01/2026 (Approximate), Expires: 08/03/2026documented as of this encounter Visit Diagnoses Diagnosis Pre-diabetes- Primary Other abnormal glucose Depression with anxiety Dysthymic disorder Vitamin D deficiency Unspecified vitamin D deficiency Gastroesophageal reflux disease without esophagitis Esophageal reflux Chronic renal impairment, stage 3b BUCK on CPAP Obstructive sleep apnea (adult) (pediatric) Restless legs Restless legs syndrome (RLS) Chronic constipation Unspecified constipation Pure hypertriglyceridemia Pure hyperglyceridemia documented in this encounter Additional Health Concerns InfectionOnset DateLast IndicatedResolved TimeMRSA Comment:Blood and spine 05/16/2016MDRO (multi-drug resistant organism) Comment:E. Coli urine 02/202305/02/20222documented as of this encounter Care Teams Team MemberRelationshipSpecialtyStart DateEnd Date Back, MD Felipe [address] [place], [place] [id number] PCP - GeneralInternal Medicine11/14/11documented as of this encounter
--- OUTSIDE RECORDS SUMMARY | 2025-08-11 13:23 | XMS_ITS | Encounter Summary ---
Author Organization [facility] Address [address] [place] [address] Care Team Providers Care Dry Cleaner Hand Name Role Phone Alcides Adam MD Primary Care Provider Reason for Visit * ReasonCommentsMed Refill Encounter Details DateTypeDepartmentCare Team (Latest Contact Info)Qpdkgnadtak51/25/2025Refill [facility] [address] [facility] [address] [place] [address] Janel Allen NP [address] [facility] [address] [address] Idiopathic progressive polyneuropathy; Non-seasonal allergic rhinitis due [...] Plan of Treatment DateTypeDepartmentCare Team (Latest Contact Info)Hbojjkygmtp78/19/2025 1:00 PM ESTOffice Visit [facility] [address] [facility] [address] [place] [phone] Jennie Barajas APRN-OPTOMETRY ASSISTANT [address] [facility] [place], [place] [id number] 08/29/2025 11:45 AM ESTOffice Visit [facility] [address] [facility] [address] [place] [phone] Nash Block MD [address] [facility] [address] [phone] documented as of this encounter Visit Diagnoses Diagnosis Idiopathic progressive polyneuropathy Non-seasonal allergic rhinitis due to pollen documented in this encounter Care Teams Team MemberRelationshipSpecialtyStart DateEnd Date Back, MD Alcides [address] [place] [address] PCP - GeneralFamily Medicine12/08/24documented as of this encounter
--- OUTSIDE RECORDS SUMMARY | 2025-08-11 13:23 | XMS_ITS | Clinical Summary ---
Author Organization [facility] Address [address] [place] [address] Phone Care Team Providers Care Product Safety Specialist Name Role Phone Unavailable Primary Care Provider Unavailabl e Social History Tobacco UseTypesPacks/DayYears UsedDateSmoking Tobacco: Never Assessed CommentsUnknownSex and Gender InformationValueDate RecordedSex Assigned at Not on fileLegal CvwYqjbxv84/25/2022 12:57 PM ESTGender IdentityNot on file Sexual OrientationNot on file Plan of Treatment Not on file
--- OUTSIDE RECORDS SUMMARY | 2025-08-11 13:23 | XMS_ITS | Clinical Summary ---
Author Organization [facility] Address [address] [place] [address] Care Team Providers Care Steam Power Plant Operator Name Role Phone Felipe Adam MD Primary Care Provider [phone] Allergies Active AllergyReactionsCriticalityNoted DateCommentsChlorhexidineRashLow 03/03/2023TopiramateOther (See Comments)10/29/2023 [...] InformationValueDate RecordedSex Assigned at BirthNot on fileLegal CrjCwuula77/12/2014 10:22 AM EDTGender QtprdmobPjwwqp16/07/2025 9:28 AM ESTSexual RfcalcrzjqwEtzokcnj04/07/2025 9:28 AM EST Last Filed Vital Signs Vital SignReadingTime TakenCommentsBlood Tsyxkshg381/8703/03/2023 2:44 PM EDT Mjehi713603/03/2023 2:44 PM DBHAewlvssybtf58.8 ??C (98.3 ??F)10/11/2024 9:42 AM ESTRespiratory Xphy868201/06/2023 5:48 PM EDTOxygen Ujmtmunfsz52%01/06/2023 4:22 PM EDTInhaled Oxygen Concentration--Gdczkl44.8 kg (209 lb)10/11/2024 9:42 AM EST Nvbgeg156.5 cm (5' 2 )10/11/2024 9:42 AM ESTBody Mass Index38.23010/11/2024 9:42 AM EST Plan of Treatment DateTypeDepartmentCare Team (Latest Contact Info)Vxtxqvhbrle87/08/2026 10:30 AM ESTOffice Visit [facility] [address] [facility] [place] [address] Dimas Adair MD [address] [place] [address] Health MaintenanceDue DateLast DoneCommentsCT Icprcarskvmp1979Fecal DNA 1979Fecal occult blood test (FOBT,FIT)1979Flexible sigmoidoscopy 1979MMR Vaccines (1 of 1 - Standard series)1980Depression Screening/Follow-Up (PHQ-2/9)1991Hepatitis C Dspuckecb25/25/1997Hepatitis B Vaccines (1 of 3 - 19+ 3-dose series)05/29/19989191Cqiowqdpl61/25/2019Pap Smear Cervical Cancer Sghzaumtq36/16/2022HPV/Udmbou3603/20/2022 03/20/2017Wellness Visit/05/2022Tetanus/Diphtheria/Pertussis (2 - Td or Tdap)/02/2014COVID-19 Vaccine (1 - season)2025 Influenza Vaccine (#1)06/05/20259424Hyixquuqpfa12Colorectal Cancer Screening/Noomgzgkqu89/07/2028Zoster Vaccines (1 of 2)2029RSV Vaccines (1 - 1-dose 75+ series)2054HIV QrrhbkmnwGrdlniulx48/16/2018HIB VaccinesAged OutNo longer eligible based on patient's [...] Procedures Procedure NamePriorityDate/TimeAssociated DiagnosisCommentsHIV 1/2 SCREEN (4TH GENERATION)Uexkmde4110/20/2017 5:25 PM EST Encounter for general adult medical examination without abnormal findings THINPREP PAP IUXZLDlpnaps23/16/2017 12:00 AM EDT HIGH RISK HPV WITH GENOTYPE 16,86Zbfgilj36/16/2017 12:00 AM EDT Encounter for general adult medical examination without abnormal findings from Last 3 Months or Most Recently Relevant to Health Maintenance Results * HIV Antibody (HIV1/HIV2) (10/20/2017 5:25 PM EST)ComponentValueRef RangeTest MethodAnalysis TimePerformed AtPathologist SignatureHIV 1-2 ScreenNegative Xyaxoyqw38/17/2018 9:47 AM [facility] LABSpecimen (Source)Anatomical Location / LateralityCollection Method / VolumeCollection TimeReceived TimeBloodBLOOD SPECIMEN / Gudknpy1910/20/2017 5:25 PM EST10/20/2017 10:58 PM EST Narrative [facility] - 10/21/2017 9:47 AM EST Test performed using [employer] Immunodiagnostic system. Authorizing ProviderResult TypeResult StatusMichuyen Parry MDLAB BLOOD ORDERABLESFinal ResultPerforming OrganizationAddressCity/State/ZIP CodePhone Number [facility] [address] [place] [address] * High Risk HPV with Genotype 16,18 (03/20/2017 12:00 AM EDT)ComponentValueRef RangeTest MethodAnalysis TimePerformed AtPathologist SignatureHPV 16Negative Bjzqobza56/28/2017 2:01 PM EDSELECT [facility] LABHPV 18Negative Hhlyiupu54/28/2017 2:01 PM [facility] LABHPV, Other HR EvwgaKcssmfxmWbmgpgih97/28/2017 2:01 PM [facility] Specimen (Source)Anatomical Location / LateralityCollection Method / Volume Collection TimeReceived TimePap, Liquid BasedCERVIX UTERI STRUCTURE / Unknown 9:32 PM EDT Narrative [facility] - 04/01/2017 2:01 PM EDT Assay performed using [employer] 4800 system utilizing Real-Time PCR to amplify target HPV DNA. This system specifically identifies HPV16 and HPV18 while concurrently detecting the other twelve high risk types (31,33,35,39,45,51,52,56,58,59,66,68). Authorizing ProviderResult TypeResult StatusEllis Island Immigrant Hospitalmalcom Pinky Richard DOBODY FLUIDS AND STOOLS ORDERABLESFinal ResultPerforming OrganizationAddress City/State/ZIP CodePhone Number [facility] [address] [place] [address] * Thinprep Pap Smear (03/20/2017 12:00 AM [...] HPV DNA. This system specifically identifies HPV16 ferRSV85 while concurrently detecting the other twelve high risk types(31,33,35,39,45,51,52,56,58,59,66,68). Completed by on 2017-04-02 Electronically Signed By Arielle NEFF (ASCP) , Power Screwdriver Operator (Case signed 03/30/2017) The Papanicolaou smear is [...] Gasparcomelodie TypeRelation to PatientDate of BirthPhone Billing AddressPersonal/KvrlxjKtkk93/ [phone] (Home) [address] [place] [address] Care Teams Team MemberRelationshipSpecialtyStart DateEnd Date Back, MD Felipe [address] [place] [address] PCP - GeneralInternal Medicine03/26/15
--- OUTSIDE RECORDS SUMMARY | 2025-08-11 13:23 | XMS_ITS ---
Continuity of Care Document (CCD) Created on: August 11, 2025 Celina Egan External Reference #: [id number] : [id number] Sex: Female Author Organization [facility] Address [address] [place] [address] Phone [phone] Care Team Providers Care Washing Machine Assembler Name Role Phone Back, Alcides MELENDREZ Care Team Information Live In Caregiver [phone] Problems Active Problems Provider Date Chronic kidney [...] Range N ote .Urine Protein/Creat. Random 06/12/2025 [place], [place] [phone].Urine Protein Random<4.Urine Creatinine Ewxexx69.4.V Ipth-Vitamin D006/12/2025[place], [place] [phone].Ipth40.0.Vitamin D, 25 Davrvbw26.2.Renal Panel06/12/2025[place], [place] [phone].Albumin4.2.Calcium9.2.Carbon Vfsvsob08.Nebqfjsm01.Phosphorus3.9 .Potassium4.5.Jcjsci012.BUN23.GFR Gwbodgwqh80Tkmw59.Creatinine-LC1.3.Urine Protein/Creat. Tdsvyx8405/10/2024[place], [place] [phone].Urine Protein Random9.Urine Creatinine Ozoaxq645.0.Urine Prot/Creat Ratio0.07.Ebceldbot59/06/2024[place], [place] [phone].Magnesium2.2.Urinalysis-Cdyvhml1905/10/2024[place], [place] [phone] Specific Gravity1.020Ua PH Test Strip5.0Ua ColoryellowUa AppearanceclearUa ProteintraceUa GlucosenegativeUa KetonesnegativeUa Bilirubin negativeUa UrobilinogennormalUa NitritenegativeUa Occult Bloodnegative.Renal Panel05/10/2024[place], [place] [phone].Albumin4.2.Calcium9.2.Carbon Dreykju23.Yyvchnat190.Phosphorus3.8 .Potassium4.0.Amniwg199.BUN19.GFR Xqzqhwzfz03Yiar79.Creatinine-LC1.3.Renal Panel 05/17/2023[place], [place] [phone].Albumin4.1.Calcium9.5.Carbon Utldjvm64.Nvlwummf182.Phosphorus3.0 .Potassium4.3.Krzfvu188.BUN17.GFR >65Ttns64.Creatinine-LC1.1.Urine Protein/Creat. Ekldgl6205/17/2023[place], [place] [phone].Urine Protein Afhrtm24.Urine Creatinine Ifqheo064.1.Urine Prot/Creat Ratio0.07.Ipth05/17/2023[place], [place] [phone].Ipth47.1.Vitamin D, 25 Hbqrefo5705/17/2023[place], [place] [phone].Vitamin D, 25 Yurgnub84.1.Urine Protein/Creat. Rnnrdo1205/20/2022 [place], [place] [phone].Urine Protein Random7.Urine Creatinine Sszotu68.1.Urine Prot/Creat Ratio0.07.Tibc-LC05/20/2022[place], [place] [phone].Tibc-LC263.Wzivcrwx70/16/2022[place], [place] [phone].Vnfuxdwe818.Iron05/20/2022[place], [place] [phone].Iron48.Transferrin-LC05/20/2022[place], [place] [phone].Transferrin-LC280.T-Sat-LC05/20/2022[place], [place] [phone].T-Sat-LC0.18.V Ipth-Vitamin D005/20/2022[place], [place] [phone].Ipth39.91.Vitamin D, 25 Ijjstgj75.3.Apzgcyjhw24/16/2022[place], [place] [phone].Magnesium2.1.Hemoglobin And Tlgqcishpd21/16/2022[place], [place] [phone].Hemoglobin Blood11.1.Dlaboayven27.3.Renal Panel05/20/2022[place], [place] [phone].Albumin4.4.Fmdszju92.0.Carbon Obxbqqd15.Jwjvfywb872.Phosphorus3.8 .Potassium4.3.Mmcclb277.BUN18.EMR43Hzyz40.GFR Ebcozbryu80Zsrr83.Creatinine-LC 1.13.Renal Panel (Other Labs)05/21/2021[place], [place] [phone].Albumin4.2.Calcium9.2.Carbon Atdcvsk34.Bfcgvikt335.Creatinine-LC 1.18.Phosphorus3.7.Osegqe531.BUN19.YMD55Nqfy74.Potassium4.2.Urine Protein/Creat. Ftsjvs4605/21/2021[place], [place] [phone].Urine Protein Random7.Urine Creatinine Pgitlq853.7.Magnesium 05/21/2021[place], [place] [phone].Magnesium2.2.Urinalysis-Rbxiknx0105/21/2021[place], [place] [phone] Specific Gravity1.020Ua PH Test Strip5.0Ua ColorYELLOWUa AppearanceCLEARUa ProteinTRACEUa GlucoseNEGATIVEUa KetonesNEGATIVEUa UrobilinogenNORMALUa Occult BloodNEGATIVE.Ua05/25/2020[place], [place] [phone] AppearanceclearUa Bilirubin-Ua Blood-Ua ColoryellowUa Glucose 100mg/dlUa Leuko-Ua Nitrite-Ua PH Test Strip6.0Ua Protein-Ua Specific Callao 1.020Ua Urobilinogen-.Urine Protein/Creat. Wnazjm0905/25/2020[place], [place] [phone].Urine Protein Random8.Urine Creatinine Hqhhqt231.2.Urine Prot/Creat Ratio0.08.Renal Panel05/25/2020[place], [place] [phone].Albumin4.4.Xalyhri32.1.Carbon Eqrlymf09.Sthituon680.Creatinine-LC 1.37.Doanrxomlv75.Rtlrgp087.BUN24.GFR-OQ24Vvso18.Potassium4.6.Renal Panel 06/17/2019[place], [place] [phone].Albumin4.3.Dlrybsm00.4.Carbon Ltfelxx55.Pparwfbb002.Creatinine-LC 1.27.Phosphorus3.0.Ylkumr113.BUN18.GFR-YL47Mcmc11.Potassium3.8.Ua06/17/2019[place] [phone] AppearanceHAZYUa Bacteria1+Ua BilirubinNEGUa BloodNEGUa Color YELLOWUa Epithelial Cells QL2-5Ua GlucoseNEGUa KetonesNEGUa LeukoNEGUa Nitrite NEGUa PH Test Strip6.0Ua ProteinTRACEUa Specific Gravity1.025Ua Urobilinogen NORMALUa WBC0-2.Urine Protein/Creat. Vrosbk6606/17/2019[place], [place] [phone].Urine Protein Ontcuo51.Urine Creatinine Pllwca821.2.Urine Prot/Creat Ratio0.08.Bujwfonoy41/13/2019[place], [place] [phone].Magnesium2.3.Hemoglobin And Lepbaayuzg70/13/2019[place], [place] [phone].Hemoglobin Blood12.1.Kpzuhmulti03.4.Renal Panel -LC04/14/2018 [place], [place] [phone].Albumin3.7.Calcium8.9.Carbon Xkqdfdx79.Oppnoiap943.Creatinine-LC 1.28.Phosphorus3.6.Feksxo955.BUN19.GFR-MY41Hmnv89.Potassium4.1.Urine Protein/Creat. Zfyaxz6504/14/2018[place], [place] [phone].Urine Protein Random7.Urine Creatinine Svriyo520.7.Urine Prot/Creat Ratio0.07.CBC W/Utihmjoodshy68/11/2018[place], [place] [phone].White Blood Count8.6.Red Blood Count4.40.Hemoglobin Blood13.3 .Ogkfryvhdq06.4MCH (Corpuscular Hemoglobin)30.2MCHC (Corpuscular Hemog Conc)33.7 RDW15.6.Platelet Count Yiysy698Szjfcqnkdyt00Qstmv Ibhlkcemsni41Hwszhgeif0Afkhg Body Hwnzfuhoyjz3Sxzafldyx %1Absolute Basophils0.10Absolute Eosinophils0.20 Absolute Lymphocytes2.70Absolute Monocytes0.50.Ipth04/14/2018[place], [place] [phone].Ipth63.01Dejd0111/18/2017[facility], Abdomen, W/ ContrastSEE PCPTKJNirv97/14/2018[facility], Abdomen, W/ ContrastCORTICAL CYST L KIDY.Urinalysis-Gdmhobu1811/17/2017 [facility] [phone] UrineNO SIGNIFICANT H.Urinalysis-Lsjdlfi9111/17/2017[facility] [phone] Specific Gravity1.014Ua PH Test Strip6.0Ua ColorYELLOWUa AppearanceHAZYUa WBC6Ua ProteinNEGUa GlucoseNEGUa KetonesNEGUa BilirubinNEGUa Urobilinogen<2.0Ua NitriteNEGUa Occult BloodMOD.CMP11/17/2017[facility] [phone].Albumin3.1.Alt18.Calcium8.6.Carbon Odmqtbi35.Ujektuzm938 .Creatinine-LC1.13.Glucose Xqips739.Alkaline Phos78.Potassium3.7.Protein-Total 6.8.Irtawa018.Ast7.BUN17.GFR Tqdlwimpw12Cgie55.Urine Prot/Creat Ratio02/17/2017 [place], [place] [phone].Urine Prot/Creat Ratio0.07Miscellaneous Other02/17/2017[place], [place] [phone] Test - Put Test In Ordercompleted.Renal Panel -LC02/17/2017 [place] [phone].Albumin4.1.Calcium9.4.Carbon Rtzgxqf08.Kltjtmky149.Creatinine-LC 1.31.Phosphorus3.4.Ybussx952.BUN21.GFR-AO43Gfgl50.Potassium4.1.BMP W/Egfr-LC 08/07/2016[facility] [phone].Potassium4.3.Cfcuypnm345.Carbon Vktneat21.Calcium9.5 .Glucose Wugms645.GFR-ZS34Mcdk77.Creatinine-LC1.17.BUN16.Hemoglobin A1c-LC 08/07/2016[facility] [phone].Hemoglobin B4b-VG5.1.Lipid Panel08/07/2016[facility] [phone].Hwgtvtpcitt690.Cholester/HDL Ratio6.2High Density Dvkafrqtcsx95 .LDL/HDL Ratio79.LDL Chbsbhhcjnx301.Mvqtpkesqffyk009.CBC W/O Differential 08/07/2016[facility] [phone].Hscrvfysmk46.1.Hemoglobin Blood12.6.Platelet Count Lvsoc801.Red Blood Count4.80VTI58.2.White Blood Count7.6MCH (Corpuscular Hemoglobin)29.8MCHC (Corpuscular Hemog Conc)34.1Urine Kbheykm5506/08/2015[place], [place] [phone] Urine Routinesee report.Urinalysis-Eigoeur0806/08/2015[place], [place] [phone] Specific Gravity1.020Ua PH Test Strip5.0Ua ColoryellowUa AppearanceclearUa ProteinnegativeUa GlucosenegativeUa BilirubinnegativeUa UrobilinogennormalUa Nitritenegative.Urine Protein/Creat. Zstppo9906/08/2015[place], [place] [phone].Urine Protein Nryssj78.Urine Creatinine Sfuvbz486.4.Urine Prot/Creat Ratio0.05.Renal Panel06/08/2015[place], [place] [phone].Albumin4.0.Calcium8.9.Carbon Zsdckuw36.Cmtjomzv150.Creatinine-LC 1.29.Phosphorus3.0.Potassium3.6.Uynvet987.BUN14.GFR-YH69Xyty40.Hemoglobin And Mpkllnxspn20/04/2015[place], [place] [phone].Hemoglobin Blood12.8.Btrsglnqdz61.2.Ua12/29/2014[place] [phone] AppearanceclearUa BilirubinnegativeUa BloodtraceUa Coloryellow Ua Epithelial Cells QL2 to 5Ua GlucosenegativeUa LeukonegativeUa Nitritenegative Ua PH Test Strip5.0Ua ProteinnegativeUa RBC0 to 2Ua Specific Gravity1.020Ua Urobilinogennormal.Renal Panel12/29/2014[place], [place] [phone].Albumin4.1.Calcium9.7.Carbon Wuhfcuk02.Mjizqzel798.Creatinine-LC 1.50.Phosphorus4.2.Potassium4.1.Msdsml208.BUN18.GFR-EC41Ucnf55.Urine Protein/Creat. Zznzqc0512/29/2014[place], [place] [phone].Urine Protein Random6.Urine Creatinine Ornmgw464.0.Urine Prot/Creat Ratio0.05.Renal Panel12/06/2014[place], [place] [phone].Albumin4.0.Calcium9.2.Carbon Zmtzois47.Rsgreazk715.Creatinine-LC 1.32.Phosphorus3.0.Potassium4.3.Qaemfn956.BUN17.GFR-NE55Wlav52.Urine Protein/Creat. Myalum1812/06/2014[place], [place] [phone].Urine Protein Random7.Urine Creatinine Gvsszo034.8.Urine Prot/Creat Ratio0.04.Ua12/06/2014[place] [phone] AppearanceclearUa Bacteria1+Ua BilirubinnegativeUa BloodtraceUa ColoryellowUa Epithelial Cells QL2 to 5Ua GlucosenegativeUa LeukonegativeUa NitritenegativeUa PH Test Strip6.0Ua ProteinnegativeUa RBC2 to 5Ua Specific Gravity1.020Ua Urobilinogennormal.Complement C306/13/2014[place], [place] [phone].Complement C3140.Chtieerzr12/09/2014[place], [place] [phone].Magnesium2.3.Gorqpqh1806/13/2014[place], [place] [phone].Calcium9.1.Ijuugqbosk35/09/2014[place], [place] [phone].Phosphorus3.8.Urine Protein 24HR06/13/2014[place], [place] [phone].Urine Protein Total 24H63.Urinalysis-Ueqimvt9506/13/2014[place] [phone] Specific Gravity1.015Ua PH Test Strip6.0Ua ColorYELLOWUa AppearanceCLEARUa ProteinNEGATIVEUa GlucoseNEGATIVEUa BilirubinNEGATIIVEUa UrobilinogenNORMALUa NitriteNEGATIVE.V Ipth-Vitamin D006/13/2014[place], [place] [phone].Ipth49.31.Vitamin D, 25 Lapwobe84.9.Anca Panel-LC06/13/2014[place], [place] [phone].Anca-C30.Anca-P7.Urine Protein Elect Ran06/13/2014[place] [phone] InterpretationNORMAL.GBM Antibody-LC06/13/2014[place], [place] [phone].Lqai-FPH-DU1.Complement Total (CH50)06/13/2014[place], [place] [phone].Complement Total (CH50)115.Complement C406/13/2014[place], [place] [phone].Complement C429.Ipth06/13/2014[place], [place] [phone].Ipth49.31.Lipid Panel06/13/2014[place], [place] [phone].Xlllyivsspm59.Cholester/HDL Ratio5.6High Density Wvhdszmszxx68 .LDL/HDL Ratio58.LDL Pkisuszovyk705.Zvpqixkmrwdnf593.Immunofixation-Urine 06/13/2014[place], [place] [phone].Immunofixation-UrineNEGATIVE.Vitamin D, 25 Mfpvwpc6406/13/2014[place], [place] [phone].Vitamin D, 25 Lcjhule36.9.Ddywcryqmecc18/09/2014[place], [place] [phone].Cryoglobulin0.Hepatitis B-Surface Rgjoeiq3806/13/2014[place], [place] [phone].Hepatitis B-Surface AntigenNON REACTIVE.Hepatitis C006/13/2014 [place], [place] [phone].Hepatitis CNON REACTIVE.Immunofixation-Serum06/13/2014[place], [place] [phone].Immunofixation-SerumNEGATIVE.Hemoglobin And Gwtlvyrsqc44/09/2014 [place] [phone].Hemoglobin Blood13.0.Puuduuvwxk32.9.Urine Eosinophils Random 06/13/2014[place], [place] [phone].Urine Eosinophils RandomNONE SEEN.BUN06/13/2014[place], [place] [phone].BUN18.Creatinine-LC06/13/2014[place], [place] [phone].Creatinine-LC1.27.GFR-LC06/13/2014[place], [place] [phone].GFR-DK80Pydw13.Ggudsk2506/13/2014[place], [place] [phone].Chgxrn537.Lyqkdtjrd73/09/2014[place], [place] [phone].Potassium4.4.Dheavvfr59/09/2014[place], [place] [phone].Smkscivd774.Carbon Azyxngx9106/13/2014[place], [place] [phone].Carbon Soxpyfi66.Renal Panel05/30/2014[facility] [phone].Albumin3.9.Calcium9.3.Carbon Rewforz25.Bmmpbpuc781.Creatinine-LC 1.41.Potassium3.6.Cgokkz196.BUN16.GFR-VH62Twte80.GFR Lmmzujiy61Mtsq61 .GFR Cjcyictza24Uate69.Urinalysis-Ntapcxl4805/30/2014[facility] [phone] Specific Gravity1.030Ua PH Test Strip5.0Ua ColoryellowUa AppearancehazyUa ProteinnegativeUa GlucosenegativeUa KetonesnegativeUa Bilirubin negativeUa UrobilinogennormalUa Nitritenegative.Renal Panel05/22/2014[facility] [phone].Albumin4.1.Calcium9.1.Carbon Fjgqiwn34.Whmscgpn259.Creatinine-LC 1.45.Potassium3.8.Sobozy643.BUN19.GFR-QZ14Psbl28.GFR Pensnevf73Mbsx99 .GFR Zfwmpnzhy10Pexm15.Renal Panel01/13/2014[facility] [phone].Albumin4.1.Calcium9.3.Carbon Xnxhghs42.Aecqxtjm762.Creatinine-LC 1.26.Potassium4.1.Ccarft704.BUN19.GFR-XZ82Fukp83.GFR Xhqdhvgs57Pmzb86 .GFR Jbfpiqvkw87Qvvr73 Encounters Type Date Location Provider Dx Diagnosis Office Visit 06/14/2025 2:20p [facility] Heather Forbes M.D. N11.9 Chronic tubulo-interstitial nephritis, unspecified N18.31 Chronic kidney disea se, stage 3a Office Visit 05/13/2024 1:00p [facility] SHUKRI Sebastian N11.9 Chronic tubulo-interstitial nephritis, unspecified N18.31 Chronic kidney disea se, stage 3a Office Visit 05/18/2023 11:00a [facility] Jreica Stokes N11.9 Chronic tubulo-interstitial nephritis, unspecified N18.31 Chronic kidney disea se, stage 3a D50.9 Iron deficiency anem ia, unspecified E55.9 Vitamin D deficiency , unspecified Office Visit 05/23/2022 11:00a [facility] Jerica Stokes N11.9 Chronic tubulo-interstitial nephritis, unspecified N18.31 Chronic kidney disea se, stage 3a D50.9 Iron deficiency anem ia, unspecified E55.9 Vitamin D deficiency , unspecified Office Visit 05/22/2021 1:30p [facility] Tequila Giles NP N11.9 Chronic tubulo-interstitial [...] stage 3 (moderate) Office Visit 05/04/2018 10:20a [facility] Heather Forbes M.D. N11.9 Chronic tubulo-interstitial nephritis, unspecified N18.3 Chronic kidney disea se, stage 3 (moderate) Office Visit 03/13/2017 2:00p [facility] Heather Forbes M.D. N11.9 Chronic tubulo-interstitial nephritis, unspecified N18.3 Chronic kidney disea se, stage 3 (moderate) E78.1 Pure hyperglyceridem ia Office Visit 06/15/2015 1:00p [facility] Heather king M.D. 585.3 Chronic Kidney Disease Stage 3 582.89 Interstitial Nephrit is 530.81 Esophageal Reflux Office Visit 12/15/2014 1:00p [facility] BRENDEN Boyer P 585.3 Chronic Kidney Disease Stage 3 582.89 Interstitial Nephrit is V58.64 Jail (Current)Us e Of Non-Steroid Antiinflammatories 530.81 Esophageal Reflux Office Visit 07/07/2014 11:40a [facility] Heather high M.D. 585.3 Chronic Kidney Disease Stage 3 582.89 Interstitial Nephrit is V58.64 Jail (Current)Us e Of Non-Steroid Antiinflammatories 530.81 Esophageal Reflux Office Visit 06/09/2014 1:00p [facility] Matheus ngo 585.3 Chronic Kidney Disease Stage 3 582.89 Interstitial Nephrit is V58.64 Jail (Current)Us e Of Non-Steroid Antiinflammatories 789.00 Pain Abdominal Unspe c Site Assessments Date Code Description Provider 06/14/2025 N11.9 Chronic tubulo-i nterstitial nephritis, unspecified Heather Heidyna M.D. 06/14/2025 N18.31 Chronic kidney disease, stag e 3a Heatherwoody Forbes M.DLori 05/13/2024 N11.9 Chronic tubulo-i nterstitial nephritis, unspecified RYAN SebastianC 05/13/2024 N18.31 Chronic kidney disease, stag e 3a RYAN SebastianC 05/18/2023 N11.9 Chronic tubulo-i nterstitial nephritis, unspecified [place], Jerica 05/18/2023 N18.31 Chronic kidney disease, stag e 3a [place], Jerica 05/18/2023 D50.9 Iron deficiency anemia, unsp ecified Kike, Jerica 05/18/2023 E55.9 Vitamin D deficiency, unspec ified [place], Jerica 05/23/2022 N11.9 Chronic tubulo-i nterstitial nephritis, unspecified Kike, Jerica 05/23/2022 N18.31 Chronic kidney disease, stag e 3a Kike, Jerica 05/23/2022 D50.9 Iron deficiency anemia, unsp ecified [place], Jerica 05/23/2022 E55.9 Vitamin D deficiency, unspec ified [place], Jerica 05/22/2021 N11.9 Chronic tubulo-i nterstitial nephritis, unspecified Heather Heidyna M.D. 05/22/2021 N11.9 Chronic tubulo-i nterstitial nephritis, unspecified Tequila Giles NP 05/22/2021 N18.30 Chronic kidney disease, stag e 3 unspecified Heather Benjaminadana M.D. 05/22/2021 N18.30 Chronic kidney disease, stag e 3 unspecified Tequila Giles, SENIOR MANUFACTURING TEST ENGINEER 06/08/2020 N11.9 Chronic tubulo-i nterstitial nephritis, unspecified [...] Chronic Kidney Disease Stage 3 Cheryl Palomo, HOSPITAL ACCOUNT MANAGER 12/15/2014 582.89 Interstitial Nephritis Cheryl Palomo, HOSPITAL ACCOUNT MANAGER 12/15/2014 V58.64 Jail (Curren t)Use Of Non-Steroid Antiinflammatories Cheryl Palomo, HOSPITAL ACCOUNT MANAGER 12/15/2014 530.81 Esophageal Reflux Cheryl liang, HOSPITAL ACCOUNT MANAGER 07/07/2014 585.3 Chronic Kidney Disease Stage 3 Heather Kamadana M.D. 07/07/2014 582.89 Interstitial Nephritis Swapn a Kamadana M.D. 07/07/2014 V58.64 Jail (Curren t)Use Of Non-Steroid Antiinflammatories Heather Kamadana M.D. 07/07/2014 530.81 Esophageal Reflux Heather stevens M.D. 06/09/2014 585.3 Chronic Kidney Disease Stage 3 Doug Klein M.D. 06/09/2014 582.89 Interstitial Nephritis Kenroy Klein M.D. 06/09/2014 V58.64 Jail (Curren t)Use Of Non-Steroid Antiinflammatories Doug Klein M.D. 06/09/2014 789.00 Pain Abdominal Unspec Site S yasmin Klein M.D.
--- OUTSIDE RECORDS SUMMARY | 2025-08-11 13:23 | XMS_ITS | Clinical Summary ---
Author Organization [facility] Address [address] [place] [address] Care Team Providers Care Ram Press Operator Name Role Phone BackAlcides MD Primary Care Provider [phone] Allergies No known active allergies Medications MedicationSigDispense [...] 08/19/2017Active Active Problems ProblemNoted DateDiagnosed DateBasal cell oflluckny97/26/2017 Overview (09/29/2017): Added automatically from request for surgery [id number] Basal cell carcinoma of skin of face09/16/2017Neoplasm of uncertain behavior of skin Social History Tobacco UseTypesPacks/DayYears UsedDateSmoking Tobacco: NeverSmokeless Tobacco: NeverAlcohol UseStandard Drinks/WeekCommentsNo0 (1 standard drink = 0.6 oz pure alcohol)CommentsUnknownSex and Gender InformationValueDate RecordedSex Assigned at BirthNot on fileLegal VhtZwtzjf75/06/2017 7:26 PM ESTGender Identity Bgrbju2906/25/2017 9:30 AM EDTSexual OrientationNot on file Last Filed Vital Signs Vital SignReadingTime TakenCommentsBlood Pfuimodb125/78011/24/2017 12:00 PM EST Hsbwi986211/24/2017 12:00 PM TVZFzxyaxovmso56.6 ??C (97.9 ??F)11/24/2017 12:00 PM ESTRespiratory Citi792810/09/2017 11:44 AM ESTOxygen Ttiysnhbjl13%10/09/2017 11:44 AM ESTInhaled Oxygen Concentration--Axgevs938.5 kg (221 lb 8 oz)02/26/2022 2:01 PM UMSSrqkrr546.8 cm (5' 2.5 )02/26/2022 2:07 PM EDTBody Mass Index39.87 02/26/2022 2:01 PM EDT Plan of Treatment Health MaintenanceDue DateLast DoneCommentsHEPATITIS C VIRUS [id number] HIV SCREENING LQVVWKCEWI02/25/1994HEP B VACCINE (1 of 3 - 19+ 3-dose series) 1998CERVICAL CANCER SCREENING HAKWUMRQIE45/25/2000LIPID SCREENING 2019MAMMOGRAM SCREENING PMJKTWZVAD91/25/2019COLORECTAL CANCER SCREENING NINCIHZDUO83/25/2967VGTFAZT35COVID-19 VACCINE ( - season)2025INFLUENZA VACCINE (#1)2025TDAP (ADULT)Joekinyai26/05/2014 PNEUMOCOCCAL VACCINE SERIESAged OutNo longer eligible based on patient's age to complete this topic Insurance Care Teams Team MemberRelationshipSpecialtyStart DateEnd Date Back, MD Alcides [address] [place] [address] PCP - GeneralInternal Nlzjoziq01/27/17
--- OUTSIDE RECORDS SUMMARY | 2025-08-11 13:24 | XMS_ITS | Clinical Summary ---
Author Organization [facility] Address [address] [place] [address] Care Team Providers Care Ui Designer Name Role Phone Alcides Adam MD Primary Care Provider [phone] Allergies Active AllergyReactionsCriticalityNoted DateCommentsChlorhexidineRashLow 03/03/20239028Fdegbpyint11/25/2024 Made her feel overly thirsty and caused [...] mg) by mouth at bedtime 90 tablet 301/27/595002/27/2026Active Rimegepant Sulfate (Nurtec) 75 MG tablet dispersible [...] 180 capsule Discontinued Active Problems ProblemNoted DateDiagnosed QfmwJopftxoizpxywm77/04/2025 Assessment & Plan (03/14/2025 5:41 PM EDT): Add alprazolam 0.25 ahs. Orders: ALPRAZolam (Xanax) 0.25 MG tablet; Take 1 tab 30-45 min before PAP therapy nightly Assessment & Plan (12/06/2024 1:26 PM EST): Once machine is received, pt to call for Rx alprazolam 0.25 hs for better tolerance of mask on face. Trochanteric bursitis of both hips08/24/2023olyneuropathy due to type 2 diabetes /16/2023Obstructive sleep apnea05/20/2023Hypersomnia 05/20/2023 Assessment & Plan (03/14/2025 5:41 PM EDT): Discussed modafinil. May start 100 qam if/when desired., but first optimize PAP use. Cervical paraspinal muscle spasm05/20/2023MRSA (methicillin resistant Staphylococcus aureus) rvxdvwiujv27/15/2023ain in left foot05/19/2023cute matxfxfajxj42/04/2023ilateral carpal tunnel ihtgoygc53/04/2023arpal tunnel syndrome of left wrist03/08/2023ervical disc ksfebgjrfpvg95/04/2023harcot's joint, left ankle and foot03/08/2023hronic migraine without aura, not intractable, without status toqexvscojx88/04/2023losed fracture of metatarsal bone03/08/2023losed nondisplaced fracture of second metatarsal bone of left foot03/08/2023losed fracture of navicular bone of foot03/08/2023losed nondisplaced fracture of intermediate cuneiform of left foot03/08/2023 Contracture, left ankle03/08/2023iscitis of thoracic urbhbd3503/08/2023 Disturbance of skin pyucvqvjf21/04/2023Elevated C-reactive protein (CRP) 03/08/2023Idiopathic progressive /04/9802Kqwgxbjxwdz72/04/2023 Infection of thoracic spine03/08/20234359Jgggkniy01/04/2023Limb pain03/08/2023Lumbar hyxkkkbeqotmj59/04/2023Lumbosacral spondylosis without /04/2023 Ivvayvfh86/04/4158Qodcaqs80/04/2023Hereditary and idiopathic neuropathy, ufyyitaqqfq90/04/2023rimary osteoarthritis, unspecified ankle and foot 03/08/2023Tarsal tunnel hljhuajl69/04/2023Type 2 diabetes mellitus with diabetic tlqssinwexcxda88/04/2023re-/26/6428Dpvhsc17/25/2022Thyroid nodule 2Restless legs05/13/2021OSA (obstructive sleep apnea)05/11/2020 Assessment [...] Orders: Ambulatory referral to Neurology Epidural abscess ([facility])08/20/2018Septic punnvudcp09/16/2018Abdominal pain 05/04/2018Pure ceumdmobcrirvgdke81/31/7962Jyhrqvejvbmobf30/31/2018Neoplasm of uncertain behavior of skin02/05/2018Peripheral ekmdimfkdz35/27/2018Basal cell carcinoma of skin of face09/16/2017 Overview (03/08/2023): Added automatically from request for surgery [id number] Overview: Added automatically from request for surgery [id number] Mixed debsdsxwdrqwez13/15/2017Carpal tunnel syndrome of right wrist03/05/2017 Vitamin D pavpfsaacz60/08/2014GERD (gastroesophageal reflux disease)09/08/2014 Chronic glomerulonephritis with pathological lesion in adsryg7006/09/2014Chronic renal impairment, stage 3 (moderate)06/09/2014Thoracic degenerative disc disease 05/09/2014Seasonal /11/2014CRI (chronic renal insufficiency) 10/25/2013Depression with jnidshw8006/24/20131512Xhyqttlcedeou29/20/2013Fatigue 07/20/2012 Encounters DateTypeDepartmentCare UjbdJgsmspvwamo60/25/2025Refill [facility] [address] [facility] [address] [place] [address] Janel Allen, ONUR Idiopathic progressive polyneuropathy; Non-seasonal allergic rhinitis due to ilwlxf4205/24/2025 12:30 PM EDTAncillary Procedure [facility] [address] [place] [address] Cervical paraspinal muscle spasm05/24/2025 11:30 AM EDTOffice Visit [facility] [address] [place] [address] Jennie Barajas, DELIVERY DIRECTOR-PARKING ENFORCEMENT SPECIALIST BUCK (obstructive sleep apnea) (Primary Dx); Cervical paraspinal muscle spasm; Cervical mirjumvgydbhi97/20/2025Telephone [facility] [address] [place] [address] Gauri Jay MA TENS05/24/2025amboo flowsheet [facility] [address] [place] [phone] Jennie Barajas, DELIVERY DIRECTOR-PARKING ENFORCEMENT SPECIALIST 05/24/20254914Rliljl13/19/2025Telephone [facility] [address] [facility] [address] [place] [address] Nash Block MD from Last [...] ValueDate RecordedSex Assigned at BirthNot on fileLegal AhfRxdvtj38/15/2023 7:36 PM EDTGender IdentityNot on fileSexual OrientationNot on file Last Filed Vital Signs Vital SignReadingTime TakenCommentsBlood Alfnksij585/8008 11:47 AM EDT Aoyqc84024 12:32 PM EDTTemperature--Respiratory Exnd780705/24/2025 11:47 AM EDTOxygen Kavygkezok42%05/24/2025 11:47 AM EDTInhaled Oxygen Concentration-- Wkzzpr05.3 kg (210 lb)05/24/2025 11:47 AM GBQTqfeue029.5 cm (5' 2 )05/24/2025 11:47 AM EDTBody Mass Index38.4108 11:47 AM EDT Plan of Treatment DateTypeDepartmentCare Team (Latest Contact Info)Zbzsrxmzlob54/19/2025 1:00 PM ESTOffice Visit [facility] [address] [place] [address] Jennie Barajas, DELIVERY DIRECTOR-PARKING ENFORCEMENT SPECIALIST [address] [place], [place] [id number] 08/29/2025 11:45 AM ESTOffice Visit [facility] [address] [place] [address] Nash Block MD [address] [place] [address] Procedures Procedure NamePriorityDate/TimeAssociated DiagnosisCommentsXR CERVICAL SPINE COMPLETE 4-5 GDMWBCfkpngv46/20/2025 12:45 PM EDT Cervical paraspinal muscle spasm [...] Davila DO Authorizing ProviderResult TypeResult StatusJessica Barajas DELIVERY DIRECTOR-CNPIMG XR PROCEDURESFinal Result from Last 3 Months Insurance Care Teams Team MemberRelationshipSpecialtyStart DateEnd Date Back, MD Alcides [address] [place] [id number] PCP - GeneralFamily Medicine12/08/24
--- OUTSIDE RECORDS SUMMARY | 2025-08-11 13:24 | XMS_ITS | Clinical Summary ---
Author Organization [facility] 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 Medications MedicationSigDispense QuantityRefillsLast FilledStart DateEnd DateStatus Cholecalciferol (VITAMIN D) 2000 UNITS CAPS capsule Indications:Vitamin D deficiencyTake 1 capsule by mouth daily. 30 capsule 12111/12/2013ctive b complex vitamins capsule Take 1 capsule by mouth dailyActive sertraline (ZOLOFT) 100 MG tablet Take 2 tablets by mouth daily Currently decreasing this slqsjrlzko03/26/2020 Active pregabalin (LYRICA) 300 MG capsule Take 1 capsule by mouth 2 times daily.02/20/2022ctive Biotin 1000 MCG TABS Take 1 tablet by mouth daily02/26/2022ctive NURTEC [address] 1 TABLET ON OR UNDER THE TONGUE EVERY OTHER DAY01/02/2022ctive baclofen (LIORESAL) 10 MG tablet Take 1 tablet by mouth tluszgp6504/19/2022ctive montelukast (SINGULAIR) 10 MG tablet Indications:Seasonal allergiesTAKE [...] MG capsule Take 3 capsules by mouth stcitno39/6Active clindamycin (CLEOCIN) 300 MG capsule 5Active dapagliflozin [...] tablet Expired Active Problems ProblemNoted DateDiagnosed DateChronic daubcqmhmgqw84/30/2025 Assessment & Plan (08/03/2025 11:31 AM EDT): Controlled on Linzess PRN. Pre-kqghjihd09/26/2022 Assessment & Plan (08/03/2025 11:31 AM EDT): [...] Hemoglobin A1C; Future Basic Metabolic Panel; Future Nwzueh7005/29/2022Thyroid xtbwgo062Restless legs05/13/2021 Assessment & Plan (08/03/2025 11:31 AM EDT): Controlled on Requip. No change in medication. Assessment & Plan (11/15/2024 3:08 PM EST): Controlled on Requip. No changes at this time. BUCK on CPAP05/11/2020 Assessment & Plan (08/03/2025 11:31 AM EDT): Controlled on CPAP. Assessment & Plan (11/15/2024 3:08 PM EST): Undergoing the process of getting a new machine. Epidural pyifcnu4808/20/2018Septic pvqblqubo91/16/2018Neoplasm of uncertain behavior of skin02/05/2018Peripheral qijdtumucz36/27/2018Basal cell carcinoma of skin09/29/2017 Overview (02/05/2018): Overview: Added automatically from request for surgery [id number] Basal cell carcinoma of skin of face09/16/2017Mixed hzmjxptchymynz80/15/2017 Assessment & Plan (11/15/2024 3:08 PM EST): [...] Future Carpal tunnel syndrome on right03/05/2017Vitamin D sgvljsehgp92/08/2014 Assessment & Plan (08/03/2025 11:31 AM EDT): [...] 3 (moderate)06/09/2014Chronic glomerulonephritis with pathological lesion in bgjyrd9106/09/2014Thoracic degenerative disc disease 05/09/2014Seasonal varnnjkwt02/11/2014CRI (chronic renal insufficiency) 10/25/2013 Assessment & Plan (08/03/2025 11:31 AM EDT): Follows with Nephrology. Avoid NSAIDS and keep BP well controlled. Assessment & Plan (11/15/2024 3:08 PM EST): Renal function has been stable. Avoid NSAIDS. Follows with Nephrology yearly (Dr. Forbes). Orders: Comprehensive Metabolic Panel; Future Depression with ylblgoe8006/24/2013 Assessment & Plan (08/03/2025 11:31 AM EDT): Controlled on Zoloft, Pamelor, and Xanax. Follows with Psychiatry every 3 months. Assessment & Plan (11/15/2024 3:08 PM EST): Has been stable on Zoloft. No change in medication. Feisiuupbutpf65/20/2013 Assessment & Plan (11/15/2024 3:08 PM EST): HgbA1C has been normal. Will repeat HgbA1C and Insulin level with next labs. Orders: Hemoglobin A1C; Future Insulin, Total; Future Chronic fgktuid1707/20/20120328Iepycal57/16/2012Elevated C-reactive protein (CRP)MRSA (methicillin resistant Staphylococcus aureus) septicemiaDiscitis of thoracic regionInfection of thoracic spine Resolved Problems ProblemNoted DateDiagnosed DateResolved QiixOrbfjv22Lactic vmurqmmy53Mixed hypercholesterolemia and hypertriglyceridemia Depressioncute metabolic encephalopathy 05/11/2020MRSA smlgnevruk82/07/2020 Encounters DateTypeDepartmentCare BdhtYnjetckkzby21/30/2025 11:00 AM EDTOffice Visit [address] [address] Felipe Adam MD Pre-diabetes (Primary Dx); Depression with anxiety; Vitamin D deficiency; Gastroesophageal reflux disease without esophagitis; Chronic renal impairment, stage 3b; BUCK on CPAP; Restless legs; Chronic constipation; Pure vvyppxiasljdvsiwwvme58/29/2025 11:54 AM EDT - 08/02/2025 11:59 PM EDT Hospital Encounter [facility] [address] [place] [address] Stage 3a chronic kidney disease (HCC); Pre-diabetes Discharge Disposition: Home or Self Care07/26/2025Orders Only [address] [address] Dimitris Stephens MD 07/21/2025 3:25 PM EDT - 07/21/2025 11:59 PM EDTHospital Encounter [facility] [address] [place] [address] Discharge Disposition: Home or Self Care06/29/2025Orders Only [address] [address] Dimitris Stephens MD 06/19/2025Refill [address] [address] Felipe Adam MD Medication Wqvdfh9106/19/2025Orders Only [facility] [address] [place] [address] Myah Gao MA Stage 3a chronic kidney disease (HCC); Pre-dreijmto92/11/2025bstract [facility] [address] [place] [address] Felipe Adam MD 06/12/2025 9:56 AM EDT - 06/12/2025 11:59 PM EDTHospital Encounter [facility] [address] [place] [address] Discharge Disposition: Home or Self Care05/15/2025 12:07 PM EDT - 05/15/2025 11:59 PM EDTHospital Encounter [facility] [address] [place] [address] Discharge Disposition: Home or Self Carefrom Last 3 Months Immunizations ImmunizationAdministration DatesNext DueTDaP, ADACEL (age 10y-64y), BOOSTRIX (age 10y+), IM, 0.5mL09/08/2014 Family History Medical HistoryRelationNameCommentsCancerMotherGlenna MeadelungDiabetesMother Madyson MeadeHigh Blood PressureMotherGlenna MeadeRelationNameStatusComments MotherGlenna Rhea Social History Tobacco UseTypesPacks/DayYears UsedDateSmoking Tobacco: NeverPassive Smoke Exposure: NeverSmokeless Tobacco: Never Tobacco Cessation:Counseling Given: Not Answered Alcohol UseStandard Drinks/WeekCommentsNo0 (1 standard drink = 0.6 oz pure alcohol)[facility] UtilitiesAnswerDate RecordedIn the past 12 months has the [employer], [employer], oil, or water Olo threatened to shut off services in your [...] care, and heating?Somewhat hard 05/08/2024HQ-2AnswerDate RecordedPHQ-9 Total Ihvir187Hunger Vital Sign AnswerDate RecordedWithin the past 12 [...] steady place to sleep or slept in smackoverelter (including now)?No05/08/2024Housing Stability Vital SignAnswerDate RecordedIn the [...] 11/15/2024CommentsNoSex and Gender InformationValueDate RecordedSex Assigned at SuefeUviurb43/13/2025 9:45 AM EDTLegal PblBypzft78/10/2013 10:13 AM ESTGender XculakyaWtvhem82/05/2021 8:11 AM ESTSexual OrientationStraight 10/09/2020 8:11 AM ESTOccupationIndustryJob Start DateJob End DateNot on fileNot on fileNot on fileNot on file Last Filed Vital Signs Vital SignReadingTime TakenCommentsBlood Opzgsmsg131/7810 10:52 AM EDT Zrigm959508/03/2025 10:52 AM ICNJekdxulyzlr72.2 ??C (99 ??F)04/04/2025 9:15 PM EDT Respiratory Ozxp353704/04/2025 11:15 PM EDTOxygen Vqkuxeqvdo11%04/18/2025 9:32 AM EDTInhaled Oxygen Concentration--Ropkli17.8 kg (220 lb)08/03/2025 10:52 AM EDT Ibmdlq389.4 cm (5')04/04/2025 9:24 PM EDTBody Mass Index42.9704/04/2025 9:24 PM EDT Plan of Treatment Health MaintenanceDue DateLast DoneCommentsHepatitis B vaccine (1 of 3 - 19+ 3- dose series)1998FIT/FOBT: Average risk2024Fecal-DNA (Cologuard): Average risk2024Sigmoidoscopy/CT vzchtrypwgig89/25/2024TaP/Tdap/Td vaccine (2 - Td or Tdap)/02/2014Flu vaccine (#1)05/05/2025OVID-19 Vaccine (1 - season)2025Depression Rlzgoinpwk03/11/447774/08/2025, 5A1C test (Diabetic or Prediabetic), 04/14/2025, 11/14/2024, Additional history existsGFR test (Diabetes, CKD 3-4, OR last GFR 15-59), 07/21/2025, 06/12/2025, Additional history exists Breast cancer /2086Losxmdooaqp27/07/68427212/09/2017 Colorectal Cancer Jwgxrf3812/10/20276958Swvugq84, 11/14/2024, 11/14/2024, Additional history existsHepatitis C hahhpeTpzirywxw69/09/2014 Cervical cancer screenDiscontinuedPap hgbtsGbhtezsrtfay18/21/2021, 03/20/2017HIV hlveidOsfkcjwcx03/09/2022Diabetes zwypcmTaqvilaiqryt43/29/2025, 04/14/2025, 11/14/2024, Additional history existsHPV (without or [...] complete this topic Procedures Procedure NamePriorityDate/TimeAssociated DiagnosisCommentsHEMOGLOBIN O2UOnsuaha 08/02/2025 11:57 AM EDT Pre-diabetes BASIC METABOLIC QMSUNTwgilhm48/29/2025 11:57 AM EDT Stage 3a chronic kidney disease (HCC) Pre-diabetes X-RAY FOOT 3+JOAphtahn62/21/2025 4:26 PM EDTSEDIMENTATION WPYMBdolrsj35/17/2025 3:37 PM EDT C-REACTIVE ATSWZTKYfcvwli90/17/2025 3:37 PM EDT KDRYenvgxp65/17/2025 3:37 PM EDT BASIC METABOLIC DDBUEQpmeenq23/17/2025 3:37 PM EDT XR FOOT LIMITED FGRMQMGHEZlmusob11/24/2025 10:53 AM EDTVITAMIN D 25 HYDROXY Ztlpfta5606/12/2025 9:59 AM EDT PROTEIN, URINE, VUZBOKIrcwjff63/08/2025 9:59 AM EDT CREATININE, RANDOM QPKVKMfbuqxw70/08/2025 9:59 AM EDT RENAL FUNCTION AOEOEYmopipf98/08/2025 9:59 AM EDT PTH, KCVBULVyfubca31/08/2025 9:59 AM EDT MORPHOLOGY JFFMXQxdsupx41/11/2025 12:11 PM EDT SEDIMENTATION CEZXZyehndd05/11/2025 12:11 PM EDT C-REACTIVE XYHTQJFFhnijkx27/11/2025 12:11 PM EDT LBWZepwhct97/11/2025 12:11 PM EDT BASIC METABOLIC ZXAUYTyelsmo52/11/2025 12:11 PM EDT LIPID ZVGKJOdwcqbw51/11/2025 9:54 AM EDT Mixed hyperlipidemia NITA BRIAN DIGITAL SCREEN GCVYSSHAXJgagbjh33/14/2025 11:51 AM EDT Encounter for screening mammogram for malignant neoplasm of breast HIV JHYECJVliycen77/09/2022 2:09 PM EDT Encounter for screening for HIV HM PAP HUWNZMcdtiaf72/21/2021HM VLXTTYQUTDKUqtrzkq61/07/2018HEPATITIS C ANTIBODY Fciuizr5306/13/2014 8:54 AM EDT from Last 3 Months or Most Recently Relevant to Health Maintenance Results * Hemoglobin A1C (08/02/2025 11:57 AM EDT)ComponentValueRef RangeTest Method Analysis TimePerformed AtPathologist SignatureHemoglobin A1C5.24.0 - 6.0 % 08/02/2025 11:57 AM EDTMERCY LABORATORIESEstimated Avg Uokqyab552dd/dL 08/02/2025 11:57 AM EDTMERCY LABORATORIESComment: The ADA and AACC recommend providing the estimated average glucose result to permit better patient understanding of their HBA1c result. Specimen (Source)Anatomical Location / LateralityCollection Method / Volume Collection TimeReceived TimeBloodBLOOD SPECIMEN / Kldkxcj6408/02/2025 11:57 AM EDT 08/02/2025 11:58 AM EDT Narrative Authorizing ProviderResult TypeResult StatusBilly Back MDCHEMISTRY ORDERABLES Final ResultPerforming OrganizationAddressCity/State/ZIP CodePhone Number [facility] [address] [place] [address], [facility] [phone] [facility] [address] [place], [place] [address] [phone] * (ABNORMAL) Basic Metabolic Panel (08/02/2025 11:57 AM EDT) Only the most recent of3 resultswithin the time period is included. ComponentValueRef RangeTest MethodAnalysis TimePerformed AtPathologist Signature Tytbyj909714 - 144 mmol/L1 11:57 AM [facility] Potassium4.33.7 - 5.3 mmol/L1 11:57 AM [facility] LAB Scwvoyqy83783 - 107 mmol/L1 11:57 AM [facility] HANGE08225 - 31 mmol/L1 11:57 AM [employer] LABAnion Gap99 - 17 mmol/L1 11:57 AM [facility] OCYUrwoaon8940 - 99 mg/dL 08/02/2025 11:57 AM [employer] XIPPHR800 - 20 mg/dL08/02/2025 11:57 AM [employer] LABCreatinine1.5(H)0.5 - 0.9 mg/dL08/02/2025 11:57 AM EDTMERCY HEALTH SYDNEE LABEst, Glom Filt Rate43(L)>60 mL/min/1.59p17908/02/2025 11:57 AM Podio[facility] LABComment: ? These results are not intended [...] secretion. Calcium9.78.6 - 10.4 mg/dL08/02/2025 11:57 AM [facility] Specimen (Source)Anatomical Location / LateralityCollection Method / Volume Collection TimeReceived TimeBloodBLOOD SPECIMEN / Uynfypk5908/02/2025 11:57 AM EDT 08/02/2025 11:58 AM EDT Narrative Authorizing ProviderResult TypeResult StatusBilly Back MDCHEMISTRY ORDERABLES Final ResultPerforming OrganizationAddressCity/State/ZIP CodePhone Number [facility] [address] [phone] * X-RAY FOOT 3+VW (07/25/2025 4:26 PM EDT) Narrative Authorizing ProviderResult TypeResult StatusHistorical Provider [facility] Final Result * (ABNORMAL) Sedimentation Rate (07/21/2025 3:37 PM EDT) Only the most recent of2 resultswithin the time period is included. ComponentValueRef RangeTest MethodAnalysis TimePerformed AtPathologist Signature Sed Rate, Koqjecdmd87(H)0 - 20 mm/Hr07/21/2025 3:37 PM [employer] LABSpecimen (Source)Anatomical Location / LateralityCollection Method / Volume Collection TimeReceived Time07/21/2025 3:37 PM EDT1 3:38 PM EDT Narrative Authorizing ProviderResult TypeResult StatusKimberrubens Segura PAHEMATOLOGY ORDERABLESFinal ResultPerforming OrganizationAddressCity/State/ZIP CodePhone Number [facility] [address] [phone] * (ABNORMAL) CBC (07/21/2025 3:37 PM EDT) Only the most recent of2 resultswithin the time period is included. ComponentValueRef RangeTest MethodAnalysis TimePerformed AtPathologist Signature WBC9.93.5 - 11.0 k/uL07/21/2025 3:37 PM EDUNIVERSITY HOSPITALS HEALTH SYSTEMCrowdfunder [place] LABRBC3.90(L) 4.00 - 5.20 m/uL07/21/2025 3:37 PM [facility] [email or web address] [place] FWZXnzqxfsjwu67.0(L) 12.0 - 16.0 g/dL07/21/2025 3:37 PM EDUNIVERSITY HOSPITALS HEALTH SYSTEMLeanMarketARD DCWWcojviocsb60.3(L) 36.0 - 46.0 %07/21/2025 3:37 PM [facility] XABJLR61.980.0 - 100.0 fL07/21/2025 3:37 PM [facility] JOAJNO93.226.0 - 34.0 pg07/21/2025 3:37 PM [facility] RRLRYOK27.131.0 - 37.0 g/dL07/21/2025 3:37 PM EDUNIVERSITY HOSPITALS HEALTH SYSTEMLeanMarketARD ZESNOU50.1(H)12.1 - 15.2 %07/21/2025 3:37 PM [facility] WGUTlskcbolm039421 - 450 k/uL07/21/2025 3:37 PM EDC[facility] FQNBIE10.46.0 - 12.0 fL07/21/2025 3:37 PM EDLiveWire Mobile [facility] Specimen (Source)Anatomical Location / LateralityCollection Method / Volume Collection TimeReceived Time07/21/2025 3:37 PM EDT1 3:38 PM EDT Narrative Authorizing ProviderResult TypeResult StatusKimberly Colton PAHEMATOLOGY ORDERABLESFinal ResultPerforming OrganizationAddressCity/State/ZIP CodePhone Number [facility] [address] [place] [address], [facility] [phone] * (ABNORMAL) C-Reactive Protein (07/21/2025 3:37 PM EDT) Only the most recent of2 resultswithin the time period is included. ComponentValueRef RangeTest MethodAnalysis TimePerformed AtPathologist Signature CRP16.1(H)0.0 - 5.0 mg/L1 3:37 PM EDTMERC SensorCath LABSpecimen (Source)Anatomical Location / LateralityCollection Method / VolumeCollection TimeReceived Time07/21/2025 3:37 PM EDT1 3:38 PM EDT Narrative Authorizing ProviderResult TypeResult StatusFidelmbciaran Segura PACHEMISTRY ORDERABLESFinal ResultPerforming OrganizationAddressCity/State/ZIP CodePhone Number [facility] [address] [place] [address], [facility] [phone] * XR FOOT LIMITED BILATERAL (06/28/2025 10:53 [...] EDT Narrative Authorizing ProviderResult TypeResult StatusJacsanta Dorsey BIOLOGY SPECIMEN TECHNICIAN-CURINE ORDERABLESFinal ResultPerforming OrganizationAddressCity/State/ZIP CodePhone Number [facility] [address] [place] [place] [address], [facility] [phone] [facility] [address] [place] [address], [facility] [phone] * Creatinine, Random Urine (06/12/2025 9:59 AM EDT)ComponentValueRef RangeTest MethodAnalysis TimePerformed AtPathologist SignatureCreatinine, Ur52.428.0 - 217.0 mg/dL06/12/2025 9:59 AM EDTMERCY LABORATORIESComment:Reference range defined for 1st morning urineSpecimen (Source)Anatomical Location / Laterality Collection Method / VolumeCollection TimeReceived Time06/12/2025 9:59 AM EDT 06/12/2025 10:00 AM EDT Narrative Authorizing ProviderResult TypeResult StatusJanel Dorsey BIOLOGY SPECIMEN TECHNICIAN-CURINE ORDERABLESFinal ResultPerforming OrganizationAddressty/State/ZIP CodePhone Number [facility] [address] [place] [address], [facility] [phone] [employer] [address] [place] [address], [facility] [phone] * (ABNORMAL) Vitamin D 25 Hydroxy (06/12/2025 9:59 AM EDT)ComponentValueRef RangeTest MethodAnalysis TimePerformed AtPathologist SignatureVit D, 25-Jgfmfsb37.2(L)30.0 - 100.0 ng/mL06/12/2025 9:59 AM EDTMERCY LABORATORIES Comment: Reference Range: Vitamin D status ? Range Deficiency <20 ng/mL Mild Deficiency ? 20-30 ng/mL Sufficiency ?30-100 ng/mL Toxicity >100 ng/mL Specimen (Source)Anatomical Location / LateralityCollection Method / Volume Collection TimeReceived Time06/12/2025 9:59 AM EDT06/12/2025 10:00 AM EDT Narrative Authorizing ProviderResult TypeResult Benton Dorsey BIOLOGY SPECIMEN TECHNICIAN-CCHEMISTRY ORDERABLESFinal ResultPerforming OrganizationAddressty/State/ZIP CodePhone Number [facility] [address] [place] [address], [facility] [phone] [employer] [address] [place] [address] * PTH, Intact (06/12/2025 9:59 AM EDT)ComponentValueRef RangeTest MethodAnalysis TimePerformed AtPathologist SignaturePth Thhnft95.017.9 - 58.6 pg/mL06/12/2025 9:59 AM [facility] LABORATORIESSpecimen (Source)Anatomical Location / Laterality Collection Method / VolumeCollection TimeReceived Time06/12/2025 9:59 AM EDT 06/12/2025 10:00 AM EDT Narrative Authorizing ProviderResult TypeResult StatusJacquedayna Dorsey BIOLOGY SPECIMEN TECHNICIAN-CCHEMISTRY ORDERABLESFinal ResultPerforming OrganizationAddressCity/State/ZIP CodePhone Number [facility] [address] [place] [address], [facility] [phone] [employer] [address] [place], [place] [address] [phone] * (ABNORMAL) Renal Function Panel (06/12/2025 9:59 AM EDT)ComponentValueRef RangeTest MethodAnalysis TimePerformed AtPathologist LdxryhemiFtztgti642(H)70 - 99 mg/dL06/12/2025 9:59 AM [facility] BLTRFO53(H)6 - 20 mg/dL 06/12/2025 9:59 AM [employer]Del[employer] LABCreatinine1.3(H)0.5 - 0.9 mg/dL 06/12/2025 9:59 AM Pod[facility] LABEst, Glom Filt Rate51(L)>60 mL/min/1.49r49006/12/2025 9:59 AM Podio[facility] LABComment: ? These results are not intended [...] secretion. Calcium9.28.6 - 10.4 mg/dL06/12/2025 9:59 AM [facility] LABAlbumin 4.23.5 - 5.2 g/dL06/12/2025 9:59 AM [facility]Del[facility] LABPhosphorus3.92.6 - 4.5 mg/dL06/12/2025 9:59 AM [facility] [email or web address] [place] RPSSelken021322 - 144 mmol/L06/12/2025 9:59 AM [facility] [email or web address] [place] LABPotassium4.53.7 - 5.3 mmol/L 06/12/2025 9:59 AM [facility] [email or web address] [place] VSPNvplthml9965 - 107 mmol/L 06/12/2025 9:59 AM [facility] [email or web address] [place] YHDXN25235 - 31 mmol/L06/12/2025 9:59 AM [facility] LABAnion Mdf289 - 17 mmol/L06/12/2025 9:59 AM EDT [place] [facility] LABSpecimen (Source)Anatomical Location / Laterality Collection Method / VolumeCollection TimeReceived Time06/12/2025 9:59 AM EDT 06/12/2025 10:00 AM EDT Narrative Authorizing ProviderResult TypeResult StatusJacsanta Dorsey BIOLOGY SPECIMEN TECHNICIAN-CCHEMISTRY ORDERABLESFinal ResultPerforming OrganizationAddressCity/State/ZIP CodePhone Number [place] [facility] [address] [phone] * MORPHOLOGY CHECK (05/15/2025 12:11 PM EDT)ComponentValueRef RangeTest Method Analysis TimePerformed AtPathologist SignatureMorphologyMODERATE ANISOCYTOSIS 05/15/2025 12:11 PM EDLA[facility] LABSpecimen (Source)Anatomical Location / LateralityCollection Method / VolumeCollection TimeReceived Time 05/15/2025 12:11 PM EDT05/15/2025 12:12 PM EDT Narrative Authorizing ProviderResult TypeResult StatusPeter D Rena DPMCHEMISTRY ORDERABLESFinal ResultPerforming OrganizationAddressty/State/ZIP CodePhone Number [place] [facility] [address] [place] [id number], [facility] [phone] * (ABNORMAL) Lipid Panel (04/14/2025 9:54 AM EDT)ComponentValueRef RangeTest MethodAnalysis TimePerformed AtPathologist SignatureCholesterol, Jybkb2536 - 199 mg/dL04/14/2025 9:54 AM EDTMERCY LABORATORIESComment: Cholesterol Guidelines: <200 Desirable 200-240 ??Borderline >240 Undesirable HDL31(L)>40 mg/dL04/14/2025 9:54 AM EDTMERCY LABORATORIESComment: HDL Guidelines: <40 Undesirable 40-59 ?Borderline >59 Desirable LDL Lcusrcraxfy170 - 100 mg/dL04/14/2025 9:54 AM EDTMERCY LABORATORIESComment: LDL Guidelines: <100 Desirable 100-129 ?? Near to/above Desirable 130-159 ?? Borderline >159 Undesirable Direct (measured) LDL and calculated LDL are not interchangeable tests. Chol/HDL Ratio5.1(H)<5.007 9:54 AM EDTMERCY ZTWBSGHUGQAHPmwutqmrqeehf444 (H)<150 mg/dL04/14/2025 9:54 AM EDTMERCY LABORATORIESComment: Triglyceride Guidelines: <150 Desirable 150-199 ??Borderline 200-499 ??High >499 Very high Based on AHA Guidelines for fasting triglyceride, July 2012. VLDL68(H)1 - 30 mg/dL04/14/2025 9:54 AM EDTMERCY LABORATORIESSpecimen (Source) Anatomical Location / LateralityCollection Method / VolumeCollection Time Received TimeBloodBLOOD SPECIMEN / Nxynlcp4104/14/2025 9:54 AM EDT04/14/2025 9:55 AM EDT Narrative Authorizing ProviderResult TypeResult StatusBilly Back MDCHEMISTRY ORDERABLES Final ResultPerforming OrganizationAddressCity/State/ZIP CodePhone Number [facility] [address] [place] [address], [facility] [phone] [facility] [employer] [address] [place], [place] [address] [phone] * NITA BRIAN DIGITAL SCREEN BILATERAL (02/15/2025 11:51 AM EDT)Anatomical Region LateralityModalityBreastBilateralMammographySpecimen (Source)Anatomical Location / LateralityCollection Method / VolumeCollection TimeReceived Time 02/15/2025 11:51 AM EDT Impressions 02/28/2025 12:55 PM EDT OVERALL ASSESSMENT: BIRADS: 1 Negative, no evidence of malignancy. A letter of notification will be mailed to the patient. Performing Facility: [facility] [address] [place], [place] [address] Narrative 02/28/2025 12:55 PM EDT HISTORY: Screening. [...] PM EDT)ComponentValueRef RangeTest MethodAnalysis TimePerformed AtPathologist SignatureHIV Ag/BaCCROBODTPWBHOSIIAQIXQN51/09/2022 2:09 PM EDTMERCY LABORATORIESComment: No laboratory evidence of HIV infection. ??If acute HIV infection is suspected, consider testing for HIV-1 RNA. Specimen (Source)Anatomical Location / LateralityCollection Method / Volume Collection TimeReceived TimeBLOOD SPECIMEN / Cxknmvr4004/12/2022 2:09 PM EDT 04/12/2022 2:11 PM EDT Narrative Authorizing ProviderResult TypeResult StatusBilly Back MDIMMUNOLOGY ORDERABLES Final ResultPerforming OrganizationAddressCity/State/[facility] CodePhone Number [facility] [address] [place], [place] [address] [phone] [facility] [employer] [facility] [place] [id number] [phone] * HM PAP SMEAR (09/24/2021) Narrative Authorizing [...] ordering HCV RNA by PCR. Performed at [address] [id number] ([phone] Specimen (Source)Anatomical Location / LateralityCollection Method / Volume Collection TimeReceived Time06/13/2014 8:54 AM EDT06/13/2014 8:55 AM EDT Narrative Authorizing ProviderResult TypeResult StatusSuog Klein MDIMMUNOLOGY ORDERABLESFinal ResultPerforming OrganizationAddressCity/State/ZIP CodePhone Number [facility] [address] [facility] [place] [address], [facility] [phone] [facility] LAB from Last 3 Months or Most Recently Relevant to Health Maintenance Additional Health Concerns InfectionOnset DateLast IndicatedMRSA Comment:Blood and spine 05/16/2016MDRO (multi-drug resistant organism) Comment:E. Coli urine 05/02/2022 Insurance * Guarantor: Celina Gaspar TypeRelation to PatientDate of BirthPhone Billing AddressPersonal/HjezkhEfuc1980 [address] [place] [id number] Advance Directives * Full Code (Latest Code Status on File) Date ActivatedDate DqkkhohjsykRmiqdlsz66/11/2018 4:17 PM08/25/2018 8:55 PM * Full Code Date ActivatedDate InactivatedComments03/19/2017 1:37 PM03/19/2017 4:32 PM * Full Code Date ActivatedDate InactivatedComments03/19/2017 10:57 AM03/19/2017 1:37 PM * Full Code Date ActivatedDate InactivatedComments03/05/2017 12:56 PM03/05/2017 3:55 PM * Full Code Date ActivatedDate InactivatedComments03/05/2017 10:05 AM03/05/2017 12:56 PM Care Teams Team MemberRelationshipSpecialtyStart DateEnd Date Felipe Adam MD [address] [place] [id number] PCP - GeneralInternal Medicine11/14/11
--- OUTSIDE RECORDS SUMMARY | 2025-08-11 13:24 | XMS_ITS | Patient Health Record ---
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 Name Role Phone None, Unknown or Primary Care Provider Unavailab Frances Placsencia [phone] Allergies Allergen (clinical drug ingredient) Drug/Non Drug Allergy documented on EMR Reaction Allergy Type Onset Date Status ChloraPrep One StepUnknownDrug AllergyActive Results Component Value Reference Range Notes XR foot LT min 3V (Not yet r eviewed by provider) Interpretation: Performing Lab: Notes/Report: Source Facility: [place] [address] XRay Report Signed Patient: CELINA GASPAR MR#: [id number] : 1980 Acct:[id number] Age/Sex: 44 / F ADM Date: 08/23/24 Loc: RAD Attending Dr: Frances Chase D.P.M. Ordering Physician: Frances Chase D.P.M. Date of Service: 08/23/24 Procedure(s): XR foot LT min 3V Accession Number(s): [id number] cc: Frances Chase D.P.M.; Physician,Non-Staff [place] [address] Patient Name: CELINA GASPAR MRN: [id number] date: 1980 Sex: F Assigned Patient Location: RAD Current Patient Location: Accession/Order Number: [id number] Exam Date: 08/23/2024 10:38 Report Date: 08/25/2024 [...] M.D. Signed By: 08/25/24616 DD/ 3 TD/TT: Pricing Clerk: XR foot LT min 3V (Not yet r eviewed by provider) Interpretation: Performing Lab: Notes/Report: Source Facility: [place] [address] XRay Report Signed Patient: CELINA GASPAR MR#: [id number] : 1980 Acct:[id number] Age/Sex: 44 / F ADM Date: 11/01/24 Loc: RAD Attending Dr: Frances Chase D.P.M. Ordering Physician: Frances Chase D.P.M. Date of Service: 11/01/24 Procedure(s): XR foot LT min 3V Accession Number(s): [id number] cc: Frances Chase D.P.M.; Physician,Non-Staff [place] [address] Patient Name: CELINA GASPAR MRN: [id number] date: 1980 Sex: F Assigned Patient Location: RAD Current Patient Location: Accession/Order Number: [id number] Exam Date: 11/01/2024 10:45 Report Date: 11/02/2024 [...] Signed By: 11/02/24 1312 DD/ 1309 TD/TT: Pricing Clerk: XR foot LT min 3V (Not yet r eviewed by provider) Interpretation: Performing Lab: Notes/Report: Source Facility: [place] [address] XRay Report Signed Patient: CELINA GASPAR MR#: [id number] : 1980 Acct:[id number] Age/Sex: 44 / F ADM Date: 11/18/24 Loc: EC Attending Dr: Frances Chase D.P.M. Ordering Physician: Frances Chase D.P.M. Date of Service: 11/18/24 Procedure(s): XR foot LT min 3V Accession Number(s): [id number] cc: Frances Chase D.P.M.; Physician,Non-Staff [place] [address] Patient Name: CELINA GASPAR MRN: [id number] date: 1980 Sex: F Assigned Patient Location: EC Current Patient Location: EC Accession/Order Number: [id number] Exam Date: 11/18/2024 10:55 Report Date: 11/18/2024 [...] Signed By: 11/18/24 1346 DD/ 1344 TD/TT: Pricing Clerk: CBC (COMPLETE BLOOD COUNT) * (Not yet reviewed by provider) Interpretation: Performing Lab:[facility], [address] [place] [address] PH:[phone] Notes/Report: WBC Count 3.8 3.5-11.0 k/uL RBC Count3.544.00-5.20 m/uLHemoglobin9.912.0-16.0 g/pHVjayyornkr62.336.0-46.0 % MCV91.280.0-100.0 fLMCH28.026.0-34.0 jjLRSG75.731.0-37.0 g/dLRDW19.412.1-15.2 % Platelet Cztxb653639-270 k/uLMPV11.76.0-12.0 fLESR (Not yet reviewed by provider) Interpretation: Performing Lab:[facility], [address] [place] [address] PH:[phone] Notes/Report:Sedimentation Vylx370-02 mm/HrMORPHX (Not yet reviewed by provider) Interpretation: Performing Lab:[facility], [address] [place] [address]., [place] [address] PH:[phone] Notes/Report:MorphologyMODERATE ANISOCYTOSISCBC (COMPLETE BLOOD COUNT) * (Not yet reviewed by provider) Interpretation: Performing Lab:[facility], [address] [place] [address]., [place] [address] PH:[phone] Notes/Report:WBC Count9.93.5-11.0 k/uLRBC Count3.904.00-5.20 m/zXHgrpxfchte66.0 12.0-16.0 g/gBKowbyizuqa35.336.0-46.0 %MCV87.980.0-100.0 fLMCH28.226.0-34.0 pg MCHC32.131.0-37.0 g/dLRDW17.112.1-15.2 %Platelet Magks562598-521 k/uLMPV11.46.0- 12.0 fLCRP (Not yet reviewed by provider) Interpretation: Performing Lab:[facility], [address] [place] [address], [place] [address] PH: Notes/Report:C-Reactive Ovvsdyj10.10.0-5.0 mg/LESR (Not yet reviewed by provider) Interpretation: Performing Lab:[facility], [address] [place] [address], [place] [address] PH:[phone] Notes/Report:Sedimentation Irjr235-03 mm/HrBASIC METABOLIC PANL (Not yet reviewed by provider) Interpretation: Performing Lab:[facility], [address] [place] [address], [place] [address] PH:[phone] Notes/Report:NA (Sodium)060914-857 mmol/LK (Potassium)4.43.7-5.3 mmol/LChloride 12502-391 mmol/YZD64528-50 mmol/LAnion Hsh13-30 mmol/UWzauacx2130-15 mg/dLBUN (Urea N)196-20 mg/dLCreatinine1.40.5-0.9 mg/qRcCDR86>60 mL/min/1.73m2 extra-renal metabolism of creatine, excessive creatine [...] a race factor using the 2020 CKD-EPI Odtagxg05.18.6-10.4 mg/dLBASIC METABOLIC PANL (Not yet reviewed by provider) Interpretation: Performing Lab:[facility], [address] [place] [address] PH:[phone] Notes/Report:NA (Sodium)768209-133 mmol/LK (Potassium)4.43.7-5.3 mmol/LChloride 31745-173 mmol/ASH79298-23 mmol/LAnion Qey772-32 mmol/WKdavzuo70748-22 mg/dLBUN (Urea N)176-20 mg/dLCreatinine1.30.5-0.9 mg/eNaCVD77>60 mL/min/1.73m2 extra-renal metabolism of creatine, excessive creatine [...] patients <18 years of age. equation. Calcium9.38.6-10.4 mg/dLCRP (Not yet reviewed by provider) Interpretation: Performing Lab:[facility], [address] [place] [address] PH:[phone] Notes/Report:C-Reactive Protein6.20.0-5.0 mg/LXR foot LT min 3V (Not yet reviewed by provider) Interpretation: Performing Lab: Notes/Report: Source Facility: [facility] [place] [address] [place] [address] XRay Report Signed Patient: CELINA GASPAR MR#: [id number] : 1980 Acct:[id number] Age/Sex: 44 / F ADM Date: 09/20/24 Loc: RAD Attending Dr: Frances Chase D.P.M. Ordering Physician: Frances Chase D.P.M. Date of Service: 09/20/24 Procedure(s): XR foot LT min 3V Accession Number(s): [id number] cc: Frances Chase D.P.M.; Physician,Non-Staff [place] [id number] Patient Name: CELINA GASPAR MRN: [id number] date: 1980 Sex: F Assigned Patient [facility]: [facility] Current Patient Location: Accession/Order Number: [id number] Exam Date: 09/20/2024 10:45 Report Date: 09/21/2024 [...] M.D. Signed By: 09/21/2459 DD/ 0656 TD/TT: Pricing Clerk: Reason For Referral Reason Referral to [facility] Diagnosis 1 Charcot's joint, lef t ankle and foot (M14.672) Referral Organization [facility] [place] (PODIATRY) Referring Provider First Name Frances Referring [...] Vital Signs Heart Rate 88 /min 11/18/2024 Jprnxkofsll06.2 degrees Tsjsmqqvtn12/14/7818Wfzephdu02 %11/18/20240156Pdkxre99 in 11/18/20241014Wuhyao713 lbs11/18/2024BMI36.58 kg/m211/18/2024 Encounters Encounter Location Date Provider Diagnosis [facility] [place] (PODIATRY) [address] [place], [place] [address] [address] 11/18/2024 Frances Chase Pseudarthrosis after fusion or arthrodesis M96.0 ; Charcot's joint, left ankle and foot M14.672 and Pain in left foot M79.672 [facility] (PODIATRY) [address] [place] [address] [place] [address] 08/23/2024 Frances Chase Pain in left foot M79.672 ; Charcot's joint, left ankle and foot M14.672 and 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..] Insured Coverage Start Date Coverage End Date [facility] [address] [place], [place] [id number] Celina Gaspar Self - patient is the insured Medical (General) History Medical History History ICD Code Gout M10.9 MRSA (methicillin resistant Staphylococc us aureus) A49.02 Kidney disease, chronic, stage II (mild, EGFR 60+ ml/min) N18.2 Neuropathy G62.9 Spondylitis M46.90 Radiculopathy M54.10 Charcot''s joint of left ankle M14.672 Charcot''s joint of left foot M14.672 Surgical History Surgery Date(Month/Year) carpal tunnel bilateral hands cholecystomyleft midfoot osteotomy and charcot iqubxtatnhaaaz15/13/2024ack surgeryhysterectomyHospitalization History Reason Date(Month/Year) see above
--- OUTSIDE RECORDS SUMMARY | 2025-08-11 13:26 | XMS_ITS | CCD ---
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 Attending Provider Back , Felipe Primary Care Provider [phone] YOON COBB Referring Unavailable BACK, FELIPE Primary Care Unavailable Back , Felipe Primary Care Provider [phone] [address] Attending Unavail able BACK, FELIPE Primary Care Unavailable Back , Felipe Primary Care Provider [phone] FRANCES HARRIS Admitting Unavailable FRANCES HARRIS Attending Unavailable FRANCES HARRIS Consulting Unavailable FRANCES HARRIS Admitting Unavailable FRNACES HARRIS Attending Unavailable [facility], DR PIPER Ackerman Consulting Unavailable HIGHLFRANCES HERNANDEZ Consulting Unavailable FRANCES HARRIS Admitting Unavailable FRANCES HARRIS Attending Unavailable [place], DR EMILY Riojas Consulting Unavailable FRANCES HARRIS Consulting Unavailable Back , Felipe Primary Care Provider [phone] BACK, FELIPE Primary Care Unavailable ROBBIN SHOOK [...] Unavailable Back Alcides MELENDREZ Primary Care Provider [phone] BACK, FELIPE Attending Unavailable BACK, FELIPE Referring [...] of OnsetReaction(s) Facility (20 sources)Chlorhexidine; Translations: [CHLORHEXIDINE]Drug Eyfvaxq89-36-2116 [facility] (13 sources)topiramate; Translations: [TOPIRAMATE]Drug Iphibsd29-87-8970Dwcce (See Comments)[facility] (20 sources)TopiramatePropensity to adverse lejzjvksp34-24-9470[facility] (1 source)Chlorhexidine; Translations: [Chlorhexidine Gluconate]Drug Allergy [facility] Medications Current Medications MedicationDrug Class(es)DatesSig (Normalized)Sig (Original)acetaminophen 325 mg / HYDROcodone bitartrate 5 mg oral tablet (10 sources)Opioid AgonistStart: 25-93-8959NHLYUpxbxzn-acetaminophen (NORCO) 5- 325 MG per tablettake 1 tablet by mouth every eight hours as neededhydroCODone- acetaminophen 5-325 MG Tab tablet take 1 tablet by mouth every 8 hours as needed. ActiveALPRAZolam 0.25 mg oral tablet (20 sources)BenzodiazepineStart: 32-33-0619cbnv 1 tablet by mouth once daily ALPRAZolam (XANAX) 0.25 MG tablet Take 1 tablet by mouth nightly. 03/14/2025 Activeamoxicillin 875 mg / clavulanate 125 mg oral tablet (1 source)Penicillin-class AntibacterialStart: 08-08-2020 End: 69-95-6306yojr 1 tablet by mouth twice dailyamoxicillin-clavulanate (AUGMENTIN) 875-125 MG per tablet Indications: Bacterial sinusitis Take 1 tablet by mouth 2 times daily for 7 days 14 tablet 0 08/08/2020 08/15/2020 Jgqnje85 hr amphetamine aspartate 5 mg / amphetamine sulfate 5 mg / dextroamphetamine saccharate 5 mg / dextroamphetamine sulfate 5 mg extended release oral capsule (4 sources)Central Nervous System StimulantStart: 02-25-2023 End: 03-51-6281nwjwcqixctiaxgbxe-amphetamine (ADDERALL XR) 20 MG 24 hr capsule 02/25/2023 10/11/2024 Discontinued (Patient Discharge)Start: 97-07-8221qudo 1 capsule by mouth once daily in [...] tablet (20 sources)gamma-Aminobutyric Acid-ergic AgonistStart: 12-16-2024 End: 11-24-6658yxyn 2 tablets by mouth at bedtimebaclofen (Lioresal) 10 MG tablet Indications: Cervical paraspinal muscle spasm TAKE 2 TABLETS BY MOUTH AT BEDTIME FOR 30 DAYS 60 tablet 3 05/24/2025 ActiveStart: 29-57-6119nxov 2 tablets by mouth at bedtimebaclofen (Lioresal) 10 MG tablet Indications: Cervical paraspinal muscle spasm TAKE 2 TABLETS BY MOUTH AT BEDTIME FOR 30 DAYS 60 tablet 3 07/12/2024 ActiveStart: 13-80-2891gojm 1 tablet by mouth once dailybaclofen (LIORESAL) 10 MG tablet Take 1 tablet by mouth nightly 04/19/2022 Activebiotin 1 mg oral tablet (20 sources)Start: 82-20-6564pupc 1 tablet by mouth once dailyBiotin 1000 [...] oral capsule (18 sources)Cephalosporin AntibacterialStart: 08-13-2023 End: 85-32-8648dhfh 1 capsule by mouth once daily as needed for urinary tract infectioncephALEXin (KEFLEX) 250 MG capsule Indications: Frequent UTI Take 1 capsule by mouth daily as needed (post-coital UTI prophylaxis) 30 capsule 1 08/13/2023 ActiveStart: 44-11-0178qmwy 1 capsule by mouth once daily as needed for urinary tract infectioncephALEXin (KEFLEX) 250 MG capsule Indications: Frequent UTI Take 1 capsule by mouth daily as needed (post-coital UTI prophylaxis) 30 capsule 1 08/07/2022 Activecholecalciferol 0.05 mg oral capsule (20 sources)Vitamin DStart: 02-90-1570oqzj 1 capsule by mouth once daily Cholecalciferol (VITAMIN D) 2000 UNITS CAPS capsule Indications: Vitamin D deficiency Take 1 capsule by mouth daily. 30 capsule 12 09/11/2014 Active cholecalciferol (Vitamin D-3) 50 MCG (2000 UT) tablet Take by mouth Active cholecalciferol, vitamin D3, (VITAMIN D3) 2,000 unit Tab Take by mouth. Active clindamycin 300 mg oral capsule (16 sources)Lincosamide AntibacterialStart: 04-04-2025 End: 51-17-6680iprmdvyxaax (CLEOCIN) 300 MG capsule 04/13/2025 ActiveStart: 14-83-1651xajnnlorvnl (CLEOCIN) 150 MG capsulecyclobenzaprine hydrochloride 5 mg oral tablet (16 sources)Muscle Relaxanttake 0.5 tablet by mouth once dailycyclobenzaprine (FLEXERIL) 5 MG tablet Take 5 mg by mouth nightly 1/2 tablet every night 0 Activedapagliflozin 10 mg oral tablet (7 sources)Sodium-Glucose Cotransporter 2 InhibitorStart: 72-39-5502cjcw 1 tablet by mouth once daily in the morningdapagliflozin (FARXIGA) 10 MG tablet Indications: Stage 3a chronic kidney disease (HCC) , Pre-diabetes Take 1 tablet by mouth every morning 90 tablet 1 06/19/2025 Vrtvdy08 hr desvenlafaxine succinate 25 mg extended release oral tablet (1 source)Serotonin and Norepinephrine Reuptake InhibitorStart: 07-29-2021 desvenlafaxine succinate (PRISTIQ) 25 MG TB24 extended release tablet 25 mg daily 0 07/29/2021 Activedextromethorphan hydrobromide 15 mg / guaiFENesin 400 mg / pseudoephedrine hydrochloride 60 mg oraltablet (1 source)alpha-Adrenergic Agonist, Uncompetitive Q-roegkp-R-aspartate Receptor Antagonist, Sigma-1 AgonistStart: 02-13-2021 End: 54-98-2998ifqx 1 tablet by mouth every six hours as needed Pghkiflkqnwoisk-AE-UV (CAPMIST DM) 60-15-400 MG TABS Take 1 tablet by mouth every 6 hours as needed(Sinus pressure) 28 tablet 0 02/13/2021 02/20/2021 Active doxycycline hyclate 100 mg oral capsule (15 sources)Tetracycline-class DrugStart: 09-20-2018 End: 06-15-1083vxie 1 capsule by mouth twice dailydoxycycline hyclate [...] mg/mg ophthalmic ointment (2 sources)Macrolide, Macrolide AntimicrobialStart: 88-25-5751awwysulysvhc 5 MG/GM Ointment ophthalmic ointment Apply to eye incisions 2 x a day 1 Tube 0 08/19/2017 Activefamotidine 20 mg oral tablet (20 sources)Histamine-2 Receptor AntagonistStart: 41-42-0222eefejntifk (PEPCID) 20 MG tablet Indications: Gastroesophageal reflux disease without esophagitis TA KE 1 TABLET TWICE A DAY 180 tablet 3 04/03/2025 ActiveStart: 23-72-2020mmaa 1 tablet by mouth twice dailyfamotidine (PEPCID) 20 MG tablet Indications: Gastroesophageal reflux disease without esophagitis Take 1 tablet by mouth 2 times daily 60 tablet 5 05/26/2023 ActiveStart: 61-90-2069mbch 1 tablet by mouth twice dailyfamotidine (PEPCID) 20 MG tablet Indications: Gastroesophageal reflux disease without esophagitis Take 1 tablet by mouth 2 times daily 60 tablet 3 2022 Activefluconazole 150 mg oral tablet (1 source)Azole AntifungalStart: 02-45-4171ivvlxhnqlvn (DIFLUCAN) 150 MG tablet Indications: Antibiotic-induced yeast infection Take 1 tablet by mouth at first sign of yeast infection and repeat in 72 hours for severe infection. 2 tablet 0 06/06/2021 Activefluticasone propionate 0.05 mg/actuat metered dose nasal spray (20 sources)CorticosteroidStart: 21-82-6747ppzp 2 spray(s) nasal route once dailyfluticasone (FLONASE) 50 MCG/ACT nasal spray Indications: Seasonal allergies USE 2 SPRAYS IN EACH NOSTRIL DAILY 48 g 3 09/22/2022 ActiveStart: 77-90-5100vtnz 2 spray(s) nasal route once dailyfluticasone (Flonase) 50 MCG/ACT nasal spray Administer 2 sprays into each nostril Daily 09/22/2022ctiveStart: 73-39-7933nkpa 2 spray(s) nasal route in the morningfluticasone (Flonase) 50 MCG/ACT nasal spray Administer 2 sprays into each nostril in the morning. 1 11/23/2021 ActiveStart: 09-51-0207rudv 2 spray(s) nasal route once daily fluticasone [...] 600 mg oral tablet (2 sources)Anti-epileptic AgentStart: 31-97-8950hpgc 1 tablet by mouth twice dailygabapentin 600 [...] mg oral capsule (11 sources)Guanylate Cyclase-C AgonistStart: 97-73-3897jijy 1 capsule by mouth once dailylinaclotide (LINZESS) 145 MCG capsule Indications: Drug-induced constipation Take 1 capsule by mouth daily 90 capsule 1 05/09/2024 Active lisdexamfetamine dimesylate 40 mg oral capsule (20 sources)Central Nervous System StimulantStart: 44-06-6109IBGJBCL 40 MG CAPS Take 50 mg by mouth daily. 03/04/2023 ActiveStart: 18-33-8940JTAQABV 40 MG CAPS Start: 66-59-2875UPKYWNK 40 MG CAPS daily. 0 05/06/2021 ActiveStart: 01-10-2021 VYVANSE 20 MG CAPS End: 09-26-9021nbae 1 capsule by mouth in the morninglisdexamfetamine (Vyvanse) 50 MG capsule Take 50 mg by mouth in the morning. 09/14/2024 Discontinued (Ineffective)loperamide hydrochloride 2 mg oral capsule (1 source)Opioid AgonistStart: 01-21-2021 End: 57-19-7699tazw 1 capsule by mouth four times daily as needed for diarrhea loperamide (RA ANTI-DIARRHEAL) 2 MG capsule Indications: Diarrhea in adult patient Take 1 capsule by mouth 4 times daily as needed for Diarrhea 20 capsule 0 01/21/2021 01/26/2021 Activemelatonin 3 mg oral tablet (17 sources) End: 17-92-1174iyymqsyjc 3 mg Tab Take by mouth nightly. 10/11/2024 Discontinued (Patient Discharge)methocarbamol 500 mg oral tablet (2 sources)Muscle RelaxantStart: 23-48-0568ojwhtetzsebeg (ROBAXIN) 500 MG tablet montelukast 10 mg oral tablet (20 sources)Leukotriene Receptor AntagonistStart: 09-22-2022 End: 24-38-8832giuaovosgyo (SINGULAIR) 10 MG tablet Indications: Seasonal allergies TAKE 1 TABLET NIGHTLY 90 tablet 3 09/22/2022 ActiveStart: 04-11-2022 take 1 tablet by mouth once dailymontelukast (SINGULAIR) 10 MG tablet Indications: Seasonal allergies Take 1 tablet by mouth wwpgqra11 tablet 1 04/11/2022 ActiveStart: 38-24-7816iqxobhbuwep (SINGULAIR) 10 MG tablet nitrofurantoin, macrocrystals 25 mg / nitrofurantoin, monohydrate 75 mg oral capsule (1 source)Nitrofuran AntibacterialStart: 06-11-2021 End: 72-75-6581lvjn 1 capsule by mouth twice dailynitrofurantoin, macrocrystal- monohydrate, (MACROBID) 100 MG capsule Indications: Acute cystitis with hematuria Take 1 capsule by mouth 2 times daily for 5 days 10 capsule 0 06/11/2021 06/16/2021 Activenortriptyline 50 mg oral capsule (20 sources)Tricyclic AntidepressantStart: 02-13-2025 End: 19-59-1073laya 3 capsules by mouth once dailynortriptyline (PAMELOR) 50 MG capsule Take 3 capsules by mouth nightly 02/13/2025 02/13/2026 ActiveStart: 09-14-2024 End: 48-71-0290lmvp 2 capsules by mouth at bedtimenortriptyline (Pamelor) 50 MG capsule Indications: Idiopathic progressive polyneuropathy , Intractable 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 (CMS/HCC) Take 2 capsules (100 mg) by mouth at bedtime 180 capsule 3 11/02/2024 02/13/2025 Discontinued (Reorder)Start: 06-10-2024 End: 85-17-3525htwd 2 capsules by mouth at bedtimenortriptyline (Pamelor) 25 MG capsule Indications: Idiopathic progressive polyneuropathy , Bilateral carpal tunnel syndrome , Restless legs , Intractable chronic migraine without aura and with statusmigrainosus (CMS/HCC) Take two capsules by mouth at bedtime. Total of 50 mg. 90 capsule 3 06/10/2024 09/14/2024 Discontinued (Reorder)Start: 11-12-2023 End: 84-57-0037sgfz 1 capsule by mouth at bedtimenortriptyline (Pamelor) 25 MG capsule Indications: Idiopathic progressive polyneuropathy , Bilateral carpal tunnel syndrome , Restless legs , Intractable chronic migraine without aura and with statusmigrainosus (CMS/HCC) Take 1 capsule (25 mg) by mouth at bedtime 90 capsule 3 11/12/2023 06/10/2024iscontinued (Reorder)PARoxetine hydrochloride 20 mg oral tablet (5 sources)Serotonin Reuptake InhibitorStart: 40-43-5531hlth 1 tablet by mouth once dailyparoxetine 20 MG Tab take 20 mg by mouth daily. 06/09/2017 Active phentermine hydrochloride 37.5 mg oral tablet (3 sources)Sympathomimetic Amine AnorecticStart: 05-26-2023 End: 92-19-8905mknz 1 tablet by mouth once daily before [...] tablet 0 05/26/2023 06/25/2023 ActiveStart: 05-27-2019 End: 23-23-6437ivut 40-44.9 capsules by mouth once daily in [...] mg oral tablet (1 source)Start: 09-16-2020 End: 61-60-9909zydp 3 tablets by mouth once dailypredniSONE (DELTASONE) 20 MG tablet Take 3 tablets by mouth daily for 5 days 15 tablet 0 Activepregabalin 300 mg oral capsule (20 sources)Start: 69-51-2984hwzj 1 capsule by mouth in the morningpregabalin (Lyrica) 300 MG capsule Indications: Idiopathic progressive polyneuropathy , Non-seasonal allergic rhinitis due to pollen TAKE 1 CAPSULE BY MOUTH IN THE MORNING AND 1 CAPSULE BY MOUTH BEFORE BEDTIME 180 capsule 07/31/2025 Active Start: 02-20-2022 End: 74-98-7107zagk 1 capsule by mouth twice dailypregabalin (LYRICA) 300 MG capsule Take 1 capsule by mouth 2 times daily. 02/20/2022 ActiveStart: 16-08-7478ayxz 1 capsule by mouth three times dailypregabalin (LYRICA) 150 MG capsule Indications: Epidural abscess , Discitis of thoracic region , Infection of thoracic spine (HCC) , Peripheral polyneuropathy Take 1 capsule by mouth 3 times daily for 30 days.. 90 capsule 0 08/25/2018 ActiveraNITIdine 150 mg oral tablet (1 source)Histamine-2 Receptor AntagonistStart: 59-27-2422rpjf 1 tablet by mouth twice dailyraNITIdine (ZANTAC) 150 MG tablet Indications: Epigastric abdominal pain Take 1 tablet by mouth 2 times daily 60 tablet 3 12/09/2019 Active rimegepant 75 mg disintegrating oral tablet (20 sources)Start: 03-48-4318Kuguykrmpt Sulfate (Nurtec) 75 MG tablet dispersible Indications: Intractable 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 Take 75 mg by mouth See administration instructions Take 1- 75mg tablet by mouth as needed at the onset of migraine. 16 tablet 11 10/31/2024 ActiveStart: 56-09-0797Chdoograsc Sulfate (Nurtec) 75 MG tablet dispersible Indications: Intractable 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 (CMS/HCC) Take 75 mg by mouth See administration instructions Take 1- 75mg tablet by mouth as needed at the onset of migraine. 16 tablet 11 09/07/2024 ActiveStart: 75-28-5077Ktckxwdddc Sulfate (Nurtec) 75 MG tablet dispersible Indications: Intractable 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 (CMS/HCC) Take 75 mg by mouth See administration instructions. Take 1- 75mg tablet by mouth as needed at the onset of migraine. 16 tablet 11 08/20/2023 ActiveStart: 70-57-2396YERDUO [address] 1 TABLET ON OR UNDER THE TONGUE EVERY OTHER DAY 01/02/2022 ActiverOPINIRole 1 mg oral tablet (20 sources)Nonergot Dopamine AgonistStart: 10-31-2024 End: 89-75-1030vbob 1 tablet by mouth in the morning, then take 1 tablet by mouth in the evening, then take 1 tablet by mouth at bedtimerOPINIRole (Requip) 0.5 MG tablet Indications: Restless legs Take 1 tablet (0.5 mg) by mouth in the morning and 1 tablet (0.5 mg) in the evening and 1 tablet (0.5 mg) before bedtime. 270 tablet 3 10/31/2024 02/13/2025 Discontinued (Reorder)Start: 15-23-4162zFAEDUXale (Requip) 0.5 MG tablet Indications: Restless legs TAKE 1 TABLET THREE TIMES A DAY 270 tablet 3 08/24/2023 ActiveStart: 02-10-2023 rOPINIRole (REQUIP) 0.5 MG tabletStart: 04-02-2021 End: 66-28-5364vjfw 1 tablet by mouth three times dailyrOPINIRole (REQUIP) 1 MG tablet Indications: Restless legs Take 1 tablet by mouth 3 times daily 270tablet 1 10/10/2024 ActiveStart: 65-99-8552oUPHZCEaim (REQUIP) 0.5 MG tablettake 1 tablet by mouth twice dailyrOPINIRole (REQUIP) 0.5 MG tablet Take 0.5 mg by mouth 2 times daily 0 Activesertraline 100 mg oral tablet (20 sources)Serotonin Reuptake InhibitorStart: 01-18-7886vajlbpluyl (Zoloft) 100 MG tablet 02/25/2023 ActiveStart: 60-03-6234aliz 2 tablets by mouth once daily sertraline (ZOLOFT) 100 MG tablet Take 2 tablets by mouth daily Currently decreasing this medication 07/30/2020 ActiveStart: 69-18-6201opkv 1 tablet by mouth once dailysertraline (ZOLOFT) 100 MG tablet Take 100 mg by mouth daily Currently decreasing this medication ActiveStart: 44-52-6007koyc 2 tablets by mouth once dailysertraline (ZOLOFT) 50 MG tablet Take 100 mg by mouth daily 2 QD 0 07/06/2019 ActiveStart: 64-43-1444ihgirsxmid (ZOLOFT) 50 MG tablet sucralfate 1000 mg oral tablet (1 source)Aluminum ComplexStart: 21-89-2280bfmx 1 tablet by mouth four times daily before mealtimesucralfate (CARAFATE) 1 GM tablet Indications: Epigastric abdominal pain Take 1 tablet by mouth 4 times daily (before meals and nightly) 120 tablet 0 12/09/2019 Activesulfamethoxazole 800 mg / trimethoprim 160 mg oral tablet (8 sources)Dihydrofolate Reductase Inhibitor Antibacterial, Sulfonamide AntimicrobialStart: 04-28-2022 End: 85-08-3622lxvg 1 tablet by mouth once in the morning, then take 1 tablet by mouth once at bedtimesulfamethoxazole-trimethoprim (BACTRIM DS) 800-160 MG per tablet Indications: Acute cystitis with hematuria Take 1 tablet by mouth in the morning and 1 tablet before bedtime. Do all this for 7 days. 14 tablet 0 04/28/2022 05/05/2022 ActiveStart: 01-22-2022 End: 24-58-9587iuti 1 tablet by mouth twice dailysulfamethoxazole-trimethoprim (BACTRIM DS;SEPTRA DS) 800-160 MG per tablet Take 1 tablet by mouth 2times daily for 7 days 14 tablet 0 01/22/2022 01/29/2022 ActiveStart: 08-01-2021 End: 05-07-7068qzyh 1 tablet by mouth once dailysulfamethoxazole-trimethoprim (BACTRIM) 400-80 MG per tablet Indications: Frequent UTI , Urinary urgency , Urinary frequency Take 1 tablet by mouth daily Take one tablet after intercourse 30 tablet 10/30/2021 Activesulfamethoxazole-trimethoprim (Bactrim) 400-80 MG tablet Take by mouth Activethiamine 100 mg oral tablet (6 sources)Start: 08-20-2023 End: 93-42-6123vbzg 1 tablet by mouth in the morningthiamine (Vitamin B-1) 100 MG tablet Indications: Bilateral carpal tunnel syndrome , Idiopathic progressive polyneuropathy , Restless legs Take 1 tablet (100 mg) by mouth in the morning. 30 tablet 08/19/2024 ActivetiZANidine 4 mg oral tablet (14 sources)Central alpha-2 Adrenergic AgonistStart: 42-23-6241puOVKbmedo (ZANAFLEX) 4 MG tablet Take by mouth nightly 0 05/05/2020 Activetopiramate 50 mg oral tablet (15 sources)Start: 09-22-2023 End: 11-40-3546dfumtavlvh 50 MG tablet 09/22/2023 09/14/2024 Discontinued (Side effects)Start: 41-06-2249hkllcycrtf (TOPAMAX) 25 MG tabletvilazodone hydrochloride 40 mg oral tablet (8 sources)Start: 80-35-4878dazw 1 tablet by mouth once dailyvilazodone HCl (VIIBRYD) 40 MG TABS Indications: Depression with anxiety Take 1 tablet by mouth daily 30 tablet 3 05/27/2019 Active Completed/Discontinued Medications MedicationDrug Class(es)DatesSig (Normalized)Sig (Original)alendronic acid 70 mg oral tablet (2 sources)BisphosphonateStart: 07-01-2024 End: 04-06-3966tytd 1 tablet by mouth once dailyalendronate (Fosamax) 70 MG tablet 1 tablet 30 minutes before the first food, beverage or medicine of the day with plain water Orally weekly for 94 days 07/01/2024 05/24/2025 Discontinued (Therapy completed)cetirizine hydrochloride 10 mg oral capsule (20 sources)Histamine-1 Receptor AntagonistStart: 06-09-2017 End: 35-74-0889xeoerieomv 10 mg capStart: 11-65-9695Qfalsietcf HCl (ALL DAY ALLERGY) 10 MG CapStart: 45-81-9628ibdd 1 tablet by mouth once dailycetirizine (ZYRTEC) 10 MG tablet TAKE 1 TABLET BY MOUTH DAILY. 30 tablet 4 02/11/2016 Fyhbct527 ml ciprofloxacin 2 mg/ml injection (4 sources)Quinolone AntimicrobialStart: 04-04-2025 End: 02-92-4807932 mg, IntraVENous, ONCE, 1 dose, On Thu04/04/25 at 2200, Antimicrobial Indications: Skin and Soft Tissue InfectionStart: 04-04-2025 End: 17-66-7474hgcp 1 tablet by mouth twice dailyciprofloxacin (CIPRO) 500 MG tablet Take 1 tablet by mouth 2 times daily for 10 days 20 tablet 04/04/2025 04/14/2025 ActiveStart: 04-13-2021 End: 74-83-2684yojo 1 tablet by mouth twice dailyciprofloxacin (CIPRO) 250 MG tablet Indications: Acute cystitis with hematuria Take 1 tablet by mouth 2 times daily for 3 days 6 tablet 0 04/13/2021 04/16/2021 Activeclindamycin (CLEOCIN) 600 mg in sodium chloride 0.9 % 50 mL IVPB (1 source)Start: 04-04-2025 End: 24-91-3382939 mg, IntraVENous, ONCE, 1 dose, On Thu04/04/25 at 2200, Antimicrobial Indications: Skin and Soft Tissue Infectiondiclofenac sodium 0.01 mg/mg topical gel (20 sources)Nonsteroidal Anti-inflammatory DrugStart: 01-06-2023 End: 36-40-5308ihgnlovgzt sodium 1 % gel 01/06/2023 05/24/2025 Discontinued (Therapy completed)Start: 50-24-0328bunptxwdtx sodium 1 % GELgadobenate dimeglumine (MULTIHANCE) injection 10 mL (2 sources)Start: 04-11-2025 End: 52-18-4168nsgy 1 dose intravenously once10 mL, IntraVENous, IMG ONCE PRN, 1 dose, Starting on Thu04/11/25 at 1244, Until Thu04/11/25 at 1245,OtherStart: 06-25-2022 End: 30-35-0597ocvazqvhze dimeglumine (MULTIHANCE) injection 10 mLhydrOXYzine pamoate 50 mg oral capsule (20 sources)AntihistamineStart: 03-06-2023 End: 12-88-2562slhyEKLtivz pamoate (Vistaril) 50 MG capsule Indications: Allergy, subsequent encounter Take 1 capsule (50 mg) by mouth as needed at bedtime for itching. 90 capsule 1 03/06/2023 03/14/2025 Discontinuedicosapent ethyl 1000 mg oral capsule (15 sources)Start: 05-17-2019 End: 85-92-1605cpfu 2 capsules by mouth twice daily, then take 1 capsule by mouthIcosapent Ethyl (VASCEPA) 1 g CAPS capsule Indications: Mixed hyperlipidemia Take 2 capsules by mouth 2 times daily 120 capsule 5 05/17/2019 09/16/2020 Discontinued (LIST CLEANUP)methylPREDNISolone 125 mg injection (1 source)CorticosteroidStart: 09-16-2020 End: 84-10-0618fcdallNOKJAFQfvvgr sodium (SOLU-MEDROL) injection 125 mgStart: 09-16-2020 End: 29-67-8233illkbqOHRYJXYespou sodium (SOLU-MEDROL) injection 125 mg2 ml orphenadrine citrate 30 mg/ml injection (1 source)Muscle RelaxantStart: 09-16-2020 End: 98-78-6801gobcgqtgvgag (NORFLEX) injection 30 mg50 ml sodium chloride 9 mg/ml injection (1 source)Start: 04-04-2025 End: 51,000 mL (10.3 mL/kg), IntraVENous, at 1,935.5 mL/hr, Administer over 31 Minutes, ONCE, On Thu04/04/25 at 2200, For 1 dose Problems Active Problems Problem ClassificationProblemDateDocumented DateEpisodic/ChronicAnxiety disorders (20 sources)Anxiety; Translations: [Mixed anxiety and depressive disorder]Onset: [id number] kidney disease (20 sources)Chronic kidney disease stage 3; Translations: [Chronic renal insufficiency]Onset: 363513-14-7884XvkgqteQndibct kidney disease (16 sources)Chronic renal insufficiency; Translations: [Chronic kidney disease] Onset: [id number] ulcer of skin (9 sources)Deep tissue pressure injury; Translations: [Pressure-induced deep tissue damage of other site]Onset: 437111-60-8837KgwxbtwGcxhymiw mellitus with complications (20 sources)Polyneuropathy due to type 2 diabetes mellitus; Translations: [Type 2 diabetes mellitus with diabetic polyneuropathy]Onset: ChronicDisorders of lipid metabolism (20 sources)Mixed hypercholesterolemia and hypertriglyceridemia; Translations: [Mixed hyperlipidemia]Onset: 06-24-2013 Resolved: [id number]t disorders (20 sources)Gastroesophageal reflux disease; Translations: [Gastro-esophageal reflux disease without esophagitis]Onset: 416358-42-2013EmsynppSgrvsdpp of lower limb (2 sources)Closed fracture of second metatarsal bone; Translations: [Nondisplaced fracture of second metatarsal bone, right foot, initial encounter for closed fracture]42-86-1826UrlcgmeqOyyomvuydsyzg symptoms and ill-defined conditions (5 sources)Dysuria; Translations: [Dysuria]EpisodicHeadache; including migraine (20 sources)Migraine without aura, not refractory ; Translations: [Chronic migraine without aura, not intractable, without status migrainosus]Onset: 568102-02-9013QhyoucjCkhbaohezkxpe and screening for infectious disease (4 sources)Suspected disease caused by 2019-nCoV; Translations: [Suspected COVID-19 virus infection]EpisodicInfective arthritis and osteomyelitis (except that caused by tuberculosis or sexually transmitted disease) (20 sources)Osteomyelitis, unspecified; Translations: [Infection of thoracic spine]Onset: 545115-63-9672UqkospwDorrxdu and fatigue (20 sources)Fatigue; Translations: [Chronic fatigue, unspecified]Onset: 117657-03-1622MwpoemeGsniofgsh; nephrosis; renal sclerosis (20 sources)Chronic glomerulonephritis; Translations: [Chronic nephritic syndrome with unspecified morphologic changes]Onset: 368308-28-3099Dqsjfcg Nutritional deficiencies (20 sources)Vitamin D deficiency; Translations: [Vitamin D deficiency, unspecified]Onset: 773156-90-7028TphtmnnToelqhfutsjvdg (20 sources)Degenerative joint disease of ankle AND/OR foot; Translations: [Primary osteoarthritis, unspecifiedankle and foot]Onset: 264921-13-2621 ChronicOther acquired deformities (20 sources)Contracture of joint of left ankle; Translations: [Contracture, left ankle]Onset: 668419-53-0760PnjvogzXvmdp acquired deformities (1 source)Deformity of lower limb; Translations: [Other specified acquired deformities of unspecified lower leg]64-59-6988GwjtgnftIiqxc and unspecified benign neoplasm (1 source)Lipoma of skin and subcutaneous tissue of neck; Translations: [Benign lipomatous neoplasm of skin and subcutaneous tissue of head, face and neck] 76-23-7126JqyeiktdRjrig and unspecified benign neoplasm (2 sources)Benign lipomatous neoplasm of skin and subcutaneous tissue of head, face and neck; Translations: [Benign lipomatous neoplasm of skin and subcutaneous tissue of head, face and neck]Onset: 33-13-0822XazvfdhxMszwz circulatory disease (4 sources)Other specified symptoms and signs involving the circulatory and respiratory systems; Translations:[OTH SPEC SX SIGNS INVLV CIRC RS]Onset: 38-76-5832YouijyooXuzcp connective tissue disease (2 sources)Other muscle spasm; Translations: [Other muscle spasm]Onset: 74-51-8967FeismpbdPpzwk connective tissue disease (1 source)Foot pain; Translations: [...] Translations: [Disorder of kidney and ureter, unspecified]Onset: 39-46-1591MfoibiysRkdhn hereditary and degenerative nervous system conditions (20 sources)Restless legs; Translations: [Restless legs syndrome]Onset: 065140-43-6732NefalmrHzmqv lower respiratory disease (1 source)Dyspnea; Translations: [SOB (shortness of breath)]EpisodicOther lower respiratory disease (2 sources)Snoring; Translations: [Snoring]29-19-2419AhsowqsdJmzjl nervous system disorders (3 sources)Polyneuropathy, unspecified; Translations: [Polyneuropathy, unspecified]Onset: 59-46-9905IvqhzjfSpqyy nervous system disorders (20 sources)Peripheral nerve disease ; Translations: [Polyneuropathy, unspecified]Onset: 212170-36-3721KhierxzGktbq nervous system disorders (20 sources)Carpal tunnel syndrome of right wrist; Translations: [Carpal tunnel syndrome, right upper limb]Onset: 426789-02-1252WyvdnipTbycf nervous system disorders (20 sources)Idiopathic progressive polyneuropathy; Translations: [Idiopathic progressive neuropathy]Onset: 341832-10-0791HkxanzyZipmk nervous system disorders (20 sources)Bilateral carpal tunnel syndrome; Translations: [Carpal tunnel syndrome, bilateral upper limbs]Onset: 065754-07-5237ZaclekpElmax nervous system disorders (20 sources)Carpal tunnel syndrome of left wrist; Translations: [Carpal tunnel syndrome, left upper limb]Onset: 019268-85-9816DtodzxuWjbps nervous system disorders (20 sources)Inattention; Translations: [Attention and concentration deficit] Onset: 366609-92-9383QiyryrkGmjxz nervous system disorders (20 sources)Disorder of the peripheral nervous system; Translations: [Hereditary and idiopathic neuropathy, unspecified]Onset: 575571-00-4047PcspvomXygpn nervous system disorders (20 sources)Tarsal tunnel syndrome; Translations: [Tarsal tunnel syndrome, unspecified lower limb]Onset: 251506-89-7360SnhpkjqIblsm nervous system disorders (4 sources)Abnormal gait; Translations: [Unsteadiness on feet]53-85-0733Zkjbamwe Other nervous system disorders (13 sources)Carpal tunnel syndrome of right wrist; Translations: [Carpal tunnel syndrome on right]Onset: Other non-epithelial cancer of skin (15 sources)Basal cell carcinoma of face; Translations: [Basal cell carcinoma of skin of face]Onset: 480294-45-2969AftvwdyHlred non-traumatic joint disorders (4 sources)Charcot's joint, left ankle and foot; Translations: [CHARCOTS JOINT LEFT ANKLE AND FO]Onset: 07-69-1789ElutyxvJmpbp non-traumatic joint disorders (3 sources)Charcot arthropathy of midfoot; Translations: [Charcot's joint, unspecified ankle and foot]43-60-3078LduacfjBkkye non-traumatic joint disorders (20 sources)Acute arthropathy; Translations: [Arthropathy, unspecified]Onset: 037923-97-8785EwmncldPrsws non-traumatic joint disorders (20 sources)Charcot's arthropathy; Translations: [Charcot's joint, left ankle and foot]Onset: 471601-23-3036YqzpjshFbdwq non-traumatic joint disorders (1 source)Pain in left ankle and joints of left foot; Translations: [PAIN IN LEFT ANKLE]Onset: 67-02-3855NsfwzzuwTucnx nutritional; endocrine; and metabolic disorders (2 sources)Obesity caused by energy imbalance; Translations: [Other obesity due to excess calories]38-03-8141MkiweeeXxcks screening for suspected conditions (not mental disorders or infectious disease) (13 sources)Elevated C-reactive protein; Translations: [Elevated C-reactive protein (CRP)]05-19-0276Ndmyt skin disorders (1 source)Mass of neck; Translations: [Localized swelling, mass and lump, neck] EpisodicOther upper respiratory disease (20 sources)Seasonal allergy; Translations: [Other seasonal allergic rhinitis] Onset: 255742-73-7766LtzraieDbysb upper respiratory disease (3 sources)Allergic rhinitis due to pollen; Translations: [Allergic rhinitis due to pollen]52-70-3867BmrxiesWhqfmhhj codes; unclassified (20 sources)Obstructive sleep apnea syndrome; Translations: [Obstructive sleep apnea (adult) (pediatric)]Onset: 960227-96-3462VyedmsiFibpisii codes; unclassified (20 sources)Hypersomnia; Translations: [Hypersomnia, unspecified]Onset: 324870-41-7524FeplozeNrfbyazu codes; unclassified (2 sources)Localized edema; Translations: [Localized edema]Onset: 01-06-2023 EpisodicResidual codes; unclassified (2 sources)Edema, generalized; Translations: [Generalized edema]04-10-2025 EpisodicSepticemia (except in labor) (20 sources)Sepsis; Translations: [Methicillin resistant Staphylococcus aureus infection]Onset: 08-15-2018 Resolved: 917217-76-2047EnzylquqFewe and subcutaneous tissue infections (4 sources)Infection of toe ; Translations: [Local infection of the skin and subcutaneous tissue, unspecified]85-37-2048KkfcnzldHxxrdaawoqp; intervertebral disc disorders; other back problems (20 sources)Discitis, unspecified, thoracic region; Translations: [Degeneration of thoracic intervertebral disc]Onset: 740445-14-9676SptjsknRfkupoa disorders (20 sources)Thyroid nodule; Translations: [Nontoxic single thyroid nodule]Onset: 198001-14-2461OtyglwxKgxonpmaxcqs (1 source)Pressure-induced deep tissue damage of other site; Translations: [Pressure-induced deep tissue damage of other site]Onset: 16-66-5227Vbcvgll tract infections (20 sources)Acute cystitis; Translations: [Acute cystitis with hematuria]Onset: 05-59-0758ZbpcivioArjlg infection (1 source)Viral disease; Translations: [Viral infection, unspecified]Episodic Past or Other Problems Problem ClassificationProblemDateDocumented DateEpisodic/ChronicAbdominal pain (20 sources)Female genital organ symptoms; Translations: [Pelvic and perineal pain]Onset: 20-42-4037BclcrjchIxwhsvjpt infection; unspecified site (20 sources)Methicillin resistant Staphylococcus aureus infection; Translations: [Bacteremia due to Methicillinresistant Staphylococcus aureus] Resolved: 656849-48-0361BuhrmkfeHqmpfjzwnw and other anemia (20 sources)Anemia; Translations: [Anemia, unspecified]Onset: 2022 40-58-0429VamcsdaqBuhrcmnq mellitus without complication (20 sources)Hyperglycemia; Translations: [Hyperglycemia, unspecified]Onset: 611740-09-5241AurxinwqBbeng and electrolyte disorders (20 sources)Lactic acidosis; Translations: [Acidosis]Onset: 08-15-2018 Resolved: 371855-07-3394GiyexvugLktohysg of lower limb (20 sources)Closed fracture of second metatarsal bone; Translations: [Nondisplaced fracture of second metatarsal bone, left foot, initial encounter for closed fracture]Onset: 96-98-8585QmianemmRkvaukvqx arthritis and osteomyelitis (except that caused by tuberculosis or sexually transmitted di sease) (20 sources)Suppurative arthritis; Translations: [Infective arthritis]Onset: 259683-77-9900FluazodjVpwanyz and fatigue (20 sources)Fatigue; Translations: [Other fatigue]Onset: EpisodicMedical examination/evaluation (2 sources)Encounter for general adult medical examination without abnormal findings; Translations: [Encounterfor general adult medical examination without abnormal findings]Onset: 70-15-8336DdhijcizMjnh disorders (20 sources)Depressive disorder; Translations: [Major depressive disorder, single episode, unspecified]Onset: 07-20-2012 Resolved: 595832-99-0275MhdpixiRceajnifx of unspecified nature or uncertain behavior (20 sources)Neoplasm of uncertain behavior of skin; Translations: [Neoplasm of uncertain behavior of skin]Onset: 950153-53-4598MwdfepomDqrpo MENTAL HEALTH CONSULTANT infection and poliomyelitis (20 sources)Extradural and subdural abscess, unspecified; Translations: [Epidural abscess]Onset: 978547-49-2735RmbufjarAwdms connective tissue disease (1 source)Spasm; Translations: [Spasm of muscle]EpisodicOther connective tissue disease (20 sources)Pain in left foot; Translations: [Pain in left foot]Onset: 960655-57-1222LtmavpnmKxigh connective tissue disease (20 sources)Pain in limb; Translations: [Pain in unspecified limb]Onset: 316398-81-9048MggwpclpMwrfp connective tissue disease (20 sources)Muscle pain; Translations: [Myalgia, unspecified site]Onset: 147186-19-9665LjclpiigKbymc connective tissue disease (20 sources)Spasm of cervical paraspinous muscle; Translations: [Other muscle spasm]Onset: 717707-05-3181TbqbxmxtSbhap connective tissue disease (20 sources)Bilateral trochanteric bursitis; Translations: [Trochanteric bursitis, right hip]Onset: 357922-63-1523VrqsonemRjvmu connective tissue disease (1 source)Pain in right foot; Translations: [Pain in right foot]Onset: 25-80-2545PzdpnhbvZafnz diseases of kidney and ureters (3 sources)Chronic renal insufficiency; Translations: [Disorder of kidney and ureter, unspecified]Onset: 429245-70-8071AalpkukjDvsil nervous system disorders (20 sources)Metabolic encephalopathy; Translations: [Metabolic encephalopathy] Resolved: 351158-84-4110AtlodztUdkvt nervous system disorders (20 sources)Skin sensation disturbance; Translations: [Unspecified disturbances of skin sensation]Onset: 873385-41-1649CbanihqhOsizq non-epithelial cancer of skin (20 sources)Basal cell carcinoma of skin; Translations: [Basal cell carcinoma of skin, unspecified]Onset: 603330-18-3487EziexmypRyxuo screening for suspected conditions (not mental disorders or infectious disease) (20 sources)Elevated C-reactive protein; Translations: [Elevated C-reactive protein (CRP)]Onset: 467614-74-4655LpxouetnNxodzgrw codes; unclassified (20 sources)Insomnia; Translations: [Insomnia, unspecified]Onset: 03-08-2023 94-29-8250AqmxncekQjcoonhdzuq; intervertebral disc disorders; other back problems (20 sources)Radiculopathy, cervical region; Translations: [Acute thoracic back pain]Onset: 49-56-442123357252-06-0467LhuplneuKriotabdqqfj (1 source)Patient encounter pqscoc55-43-0090 Results Test NameValueInterpretationReference RangeFacilityHemoglobin A1Con 08-03-2025 Glucose [Mass/Vol]103 mg/dLNormalFulton County Health CenterComment on above:Result Comment: The ADA and AACC recommend providing the estimated average glucose result to permit better patient understanding of their HBA1c result.Performed By: #### MORPHX, CRP, BMP, CBC, SED #### [facility] [address] [place], [place] [id number] Garbage Truck Helper: Emily George MDHbA1c (Bld) [Mass fraction]5.2 %Normal4.0-6.0F[facility] CenterComment on above:Performed By: #### MORPHX, CRP, BMP, CBC, SED #### [facility] [address] [place], [place] [id number] Garbage Truck Helper: Dayan Mirza Metabolic Panelon [id number] gap [Moles/Vol]9 mmol/L9 - 17 mmol/LBon [facility]ours [facility] HealthCalcium [Mass/Vol]9.7 mg/dL8.6 - 10.4 mg/dLBon Secours [facility] Centery HealthChloride [Moles/Vol]102 mmol/L98 - 107 mmol/LBon Secours [facility] HealthCO2 [Moles/Vol]27 mmol/L20 - 31 mmol/LBon [facility] HealthCreatinine [Mass/Vol]1.5 mg/dLHigh0.5 - 0.9 mg/dLBon [facility] Centerours [facility] Centery HealthEst, Glom Filt Blfs19Biq- PINFBon Elyria Memorial HospitalComment on above: These results are not [...] secretion. Glucose [Mass/Vol]92 mg/dL70 - 99 mg/dLBon [facility] HospitalInterpretation and review of laboratory resultsAbnormalInova Alexandria HospitalPotassium [Moles/Vol]4.3 mmol/L3.7 - 5.3 mmol/LBon [facility] HospitalSodium [Moles/Vol] 138 mmol/L135 - 144 mmol/LBon [facility] HospitalUrea nitrogen [Mass/Vol]17 mg/dL6 - 20 mg/dLBon St. Michael's HospitalBasic Metabolic Profon 70-35-6971Agqwf gap [Moles/Vol]9 mmol/LNormal9-17[facility] Comment on above:Performed By: #### MORPHX, CRP, BMP, CBC, SED #### [facility] [address] [place] [address] Garbage Truck Helper: SHER Mirzaalcium [Mass/Vol]9.7 mg/dLNormal8.6-10.4[facility] CenterComment on above:Performed By: #### MORPHX, CRP, BMP, CBC, SED #### [facility] [address] [place] [address] Garbage Truck Helper: SHER Mirzahloride [Moles/Vol]102 mmol/AIfcaxx35-146NtcsiFulton County Health CenterComment on above:Performed By: #### MORPHX, CRP, BMP, CBC, SED #### [facility] [address] [place] [address] Garbage Truck Helper: SHER MirzaO2 [Moles/Vol]27 mmol/IWqqtmx04-45QiaktFulton County Health CenterComment on above:Performed By: #### MORPHX, CRP, BMP, CBC, SED #### [facility] [address] [place] [address] Garbage Truck Helper: SHER Mirzareatinine [Mass/Vol]1.5 mg/dLHigh0.5-0.9[facility] CenterComment on above:Performed By: #### MORPHX, CRP, BMP, CBC, SED #### [facility] [address] [place] [address] Garbage Truck Helper: Emily George MDGFR/1.73 sq M.predicted among non-blacks MDRD (S/P/Bld) [Vol rate/Area]43 mL/min/{1.73_m2}Low>60F[facility] CenterComment on above:Result Comment: These results are [...] #### MORPHX, CRP, BMP, CBC, SED #### [facility] [address] [place] [address] Garbage Truck Helper: Emily George MDGlucose [Mass/Vol]92 mg/vHLlkptf41-22WgxfxMemorial Health System Selby General HospitalComment on above:Performed By: #### MORPHX, CRP, BMP, CBC, SED #### [facility] [address] [place] [address] Garbage Truck Helper: ANNMARIE Mirzaotassium [Moles/Vol]4.3 mmol/LNormal3.7-5.3MMemorial Health System Selby General HospitalComment on above:Performed By: #### MORPHX, CRP, BMP, CBC, SED #### [facility] [address] [place] [id number] Garbage Truck Helper: MARIKA Mirzaodium [Moles/Vol]138 mmol/YNtkimu719-168ThnrzFulton County Health CenterComment on above:Performed By: #### MORPHX, CRP, BMP, CBC, SED #### [facility] [address] [place] [address] Garbage Truck Helper: Emily George MDUrea nitrogen [Mass/Vol]17 mg/dLNormal6-20[facility] CenterComment on above:Performed By: #### MORPHX, CRP, BMP, CBC, SED #### [facility] [address] [place] [address] Garbage Truck Helper: Emily George MDBamiddlesboro arh hospital Metabolic Panelon 35-37-2589Nqvua gap [Moles/Vol]8 mmol/LLow9 - 17 mmol/LBon [facility] HealthCalcium [Mass/Vol] 10.1 mg/dL8.6 - 10.4 mg/dLBon [facility] HealthChloride [Moles/Vol]100 mmol/L 98 - 107 mmol/LBon [facility] HospitalCO2 [Moles/Vol]29 mmol/L20 - 31 mmol/LBon [facility] HospitalCreatinine [Mass/Vol]1.4 mg/dLHigh0.5 - 0.9 mg/dLBon [facility] HospitalEst, Glom Filt Juyv37Pbw- PINFBon [facility] Comment on above: These results [...] secretion. Glucose [Mass/Vol]87 mg/dL70 - 99 mg/dLBon [facility] HealthPotassium [Moles/Vol]4.4 mmol/L3.7 - 5.3 mmol/LBon [facility] HospitalSodium [Moles/Vol] 137 mmol/L135 - 144 mmol/LBon [facility] HospitalUrea nitrogen [Mass/Vol]19 mg/dL6 - 20 mg/dLBon [facility] HospitalBasic Metabolic Profon 54-44-4238Yasek gap [Moles/Vol]8 mmol/LLow9-17[facility] CenterComment on above:Performed By: #### MORPHX, CRP, BMP, CBC, SED #### [facility] [address] [place] [id number] Garbage Truck Helper: SHER Mirzaalcium [Mass/Vol]10.1 mg/dLNormal8.6-10.4F[facility] CenterComment on above:Performed By: #### MORPHX, CRP, BMP, CBC, SED #### [facility] [address] [place] [id number] Garbage Truck Helper: SHER Mirzahloride [Moles/Vol]100 mmol/QYkuufu48-180YhvwoFulton County Health CenterComcorewell health [facility] on above:Performed By: #### MORPHX, CRP, BMP, CBC, SED #### [facility] [address] [place] [address] Garbage Truck Helper: Emily George MDCO2 [Moles/Vol]29 mmol/IDvtzvf78-49ZuicgFulton County Health CenterComment on above:Performed By: #### MORPHX, CRP, BMP, CBC, SED #### [facility] [address] [place] [id number] Garbage Truck Helper: SHER Mirzareatinine [Mass/Vol]1.4 mg/dLHigh0.5-0.9[facility] on above:Performed By: #### MORPHX, CRP, BMP, CBC, SED #### [facility] [address] [place] [id number] Garbage Truck Helper: Emily George MDGFR/1.73 sq M.predicted among non-blacks MDRD (S/P/Bld) [Vol rate/Area]47 mL/min/{1.73_m2}Low>60[facility] Health CenterComcorewell health will[facility] on above:Result Comment: These results are [...] #### MORPHX, CRP, BMP, CBC, SED #### [facility] [address] [place] [address] Garbage Truck Helper: Emily George MDGlucose [Mass/Vol]87 mg/kNMfcrhg65-98NppktMemorial Health System Selby General HospitalComment on above:Performed By: #### MORPHX, CRP, BMP, CBC, SED #### [facility] [address] [place] [address] Garbage Truck Helper: ANNMARIE Mirzaotassium [Moles/Vol]4.4 mmol/LNormal3.7-5.3MMemorial Health System Selby General HospitalComment on above:Performed By: #### MORPHX, CRP, BMP, CBC, SED #### [facility] [address] [place] [address] Garbage Truck Helper: MARIKA Mirzaodium [Moles/Vol]137 mmol/QTgqgwv495-718SxetaFulton County Health CenterComment on above:Performed By: #### MORPHX, CRP, BMP, CBC, SED #### [facility] [address] [place] [address] Garbage Truck Helper: Emily George MDUrea nitrogen [Mass/Vol]19 mg/dLNormal6-20[facility] CenterComment on above:Performed By: #### MORPHX, CRP, BMP, CBC, SED #### [facility] [address] [place] [address] Garbage Truck Helper: Emily George MDC-Reactive Proteinon [id number] High sensitivity method [Mass/Vol]16.1 mg/LHigh0.0 - 5.0 mg/LBon Secours [facility] CRP [Mass/Vol]16.1 mg/LHigh0.0-5.0[facility] CenterComcorewell health [facility] on above: Performed By: #### MORPHX, CRP, BMP, CBC, SED #### [facility] [address] [place] [address] Garbage Truck Helper: Angy Mirza 25-16-3317Caurmljlnxz distribution width (RBC) [Ratio]17.1 %High12.1 - 15.2 %[facility] Alexandria HospitalHematocrit (Bld) [Volume fraction]34.3 %Low36.0 - 46.0 %[facility] HospitalHemoglobin (Bld) [Mass/Vol]11.0 g/dLLow12.0 - 16.0 g/dLBon [facility] HospitalInterpretation and review of laboratory resultsAbnormalHenrico Doctors' Hospital[facility] (RBC) [Entitic mass]28.2 pg26.0 - 34.0 pgCentra Lynchburg General HospitalHC (RBC) [Mass/Vol]32.1 g/dL 31.0 - 37.0 g/dLBon The Christ HospitalV (RBC) [Entitic vol]87.9 fL80.0 - 100.0 fLInova Alexandria HospitalPlatelet mean volume (Bld) [Entitic vol]11.4 fL 6.0 - 12.0 fLInova Alexandria HospitalPlatelets (Bld) [#/Vol]218 10*3/uLBon [facility] HospitalRBC (Bld) [#/Vol]3.90 10*6/uLLow4.00 - 5.20 m/uLInova Alexandria HospitalWBC other (Bld) [#/Vol]9.9Bon St. Michael's HospitalErythrocyte distribution width (RBC) [Ratio]17.1 %High12.1-15.2[facility] HospitalComment on above:Performed By: #### MORPHX, CRP, BMP, CBC, SED #### [facility] [address] [place] [address] Garbage Truck Helper: Emily George MDHematocrit (Bld) [Volume fraction]34.3 %Low 36.0-46.0F[facility] CenterComment on above:Performed By: #### MORPHX, CRP, BMP, CBC, SED #### [facility] [address] [place] [id number] Garbage Truck Helper: Emily George MDHemoglobin (Bld) [Mass/Vol]11.0 g/dLLow12.0-16.0 [facility] CenterComment on above:Performed By: #### MORPHX, CRP, BMP, CBC, SED #### [facility] [address] [place] [address] Garbage Truck Helper: ELISABET MirzaCH (RBC) [Entitic mass]28.2 peAtuyek06.0-34.0 [facility] CenterComment on above:Performed By: #### MORPHX, CRP, BMP, CBC, SED #### [facility] [address] [place] [id number] Garbage Truck Helper: VINCENT MirzaC (RBC) [Mass/Vol]32.1 g/zIBcgmgq63.0-37.0[facility] CenterComment on above:Performed By: #### MORPHX, CRP, BMP, CBC, SED #### [facility] [address] [place] [id number] Garbage Truck Helper: ELISABET MirzaCV (RBC) [Entitic vol]87.9 hVNgvjwb99.0-100.0 [facility] CenterComment on above:Performed By: #### MORPHX, CRP, BMP, CBC, SED #### [facility] [address] [place] [id number] Garbage Truck Helper: ANNMARIE Mirzalatelet mean volume (Bld) [Entitic vol]11.4 fL Normal6.0-12.0[facility] CenterComment on above:Performed By: #### MORPHX, CRP, BMP, CBC, SED #### [facility] [address] [place] [id number] Garbage Truck Helper: Terrence Mirza (Bld) [#/Vol]218 10*3/iVSogjgw046-794 [facility] CenterComcorewell health [facility] on above:Performed By: #### MORPHX, CRP, BMP, CBC, SED #### [facility] [address] [place], [place] [id number] Garbage Truck Helper: ELMO Mirza (Bld) [#/Vol]3.90 10*6/uLLow4.00-5.20[facility] on above:Performed By: #### MORPHX, CRP, BMP, CBC, SED #### [facility] [address] [place] [address] Garbage Truck Helper: LLOYD Mirza (Bld) [#/Vol]9.9 10*3/uLNormal3.5-11.0[facility] on above:Performed By: #### MORPHX, CRP, BMP, CBC, SED #### [facility] [address] [place], [place] [id number] Garbage Truck Helper: Kiara Mirza Panel Informationon [id number] and review of laboratory resultsAbLake Taylor Transitional Care Hospitaldimentation Rateon [id number] Photometric method (Bld) [Velocity]42HighInova Alexandria HospitalInterpretation and review of laboratory resultsAbAvera McKennan Hospital & University Health CenterSedimentation Rate42 mm/HrHigh0-20[facility] CenterComcorewell health [facility] on above:Performed By: #### MORPHX, CRP, BMP, CBC, SED #### [facility] [address] [place] [address] Garbage Truck Helper: SHER Mirzareatinine, Random Urineon [id number] (U) [Mass/Vol]52.4 mg/dL28.0 - 217.0 mg/dLBon Secours Mercy HealthComment on above:Reference range defined for 1st morning urineCreatinine,Random Uron 40-55-7654Xamciatkgi [Mass/Vol]52.4 mg/fWLsnbxb19.0-217.0[facility] Comment on above:Result Comment: Reference range defined for 1st morning urine Performed By: #### MORPHX, CRP, BMP, CBC, SED #### [facility] [address] [place] [address] Garbage Truck Helper: Kiara Mirza Panel Informationon 52-36-5534[facility], [place] 24-33-7251Fdbsmxiptj.intact [Mass/Vol]40.0 pg/mL17.9 - 58.6 pg/mLBon [facility] HospitalBon [facility], Phdzhq25.0 pg/mL Jgjyou18.9-58.6MMemorial Health System Selby General HospitalComment on above:Performed By: #### MORPHX, CRP, BMP, CBC, SED #### [facility] [address] [place] [address] Garbage Truck Helper: Emily George MDProtein, urine, randomon [id number] (U) [Mass/Vol]mg/dLmg/dLBon Elyria Memorial HospitalComment on above:No normal range established.Protein,Tot,Mullen Uron 05-77-0029Neh Prot. Conc.<4NormalFulton County Health CenterComment on above:Result Comment: No normal range established.Performed By: #### MORPHX, CRP, BMP, CBC, SED #### [facility] [address] [place] [address] Garbage Truck Helper: LASHAY Mirzaenal Function Panelon [id number] [Mass/Vol]4.2 g/dL3.5 - 5.2 g/dLBon Elyria Memorial HospitalAnion gap [Moles/Vol]12 mmol/L9 - 17 mmol/LBon [facility]ria Memorial HospitalCalcium [Mass/Vol]9.2 mg/dL8.6 - 10.4 mg/dLBon [facility] Memorial HospitalChloride [Moles/Vol]99 mmol/L98 - 107 mmol/LBon [facility] Memorial HospitalCO2 [Moles/Vol]24 mmol/L20 - 31 mmol/LBon [facility] HospitalCreatinine [Mass/Vol]1.3 mg/dLHigh0.5 - 0.9 mg/dLBon [facility] Est, Glom Filt Ahkg64Stp- PINFBon Elyria Memorial HospitalComment on above: These results are not [...] that affects renal tubular secretion. Glucose [Mass/Vol]110 mg/bUGuve03 - 99 mg/dLBon [facility] Interpretation and review of laboratory resultsAbnormalBon [facility] Phosphate [Mass/Vol]3.9 mg/dL2.6 - 4.5 mg/dLBon [facility] Memorial HospitalPotassium [Moles/Vol]4.5 mmol/L3.7 - 5.3 mmol/LBon [facility] Memorial HospitalSodium [Moles/Vol] 135 mmol/L135 - 144 mmol/LBon [facility] Memorial HospitalUrea nitrogen [Mass/Vol]23 mg/dLHigh6 - 20 mg/dLBon St. Michael's HospitalAlbumin [Mass/Vol]4.2 g/dLNormal3.5-5.2MercValley Children’s HospitalComment on above:Performed By: #### MORPHX, CRP, BMP, CBC, SED #### [facility] [address] [place] [address] Garbage Truck Helper: Myles Mirza gap [Moles/Vol]12 mmol/LNormal9-17[facility] Health CenterComcorewell health [facility] on above:Performed By: #### MORPHX, CRP, BMP, CBC, SED #### [facility] [address] [place] [address] Garbage Truck Helper: SHER Mirzaalcium [Mass/Vol]9.2 mg/dLNormal8.6-10.4Fult[facility] County Health CenterComment on above:Performed By: #### MORPHX, CRP, BMP, CBC, SED #### [facility] [address] [place] [phone] Garbage Truck Helper: SHER Mirzahloride [Moles/Vol]99 mmol/YNcopoi28-206ZjbdsFulton County Health CenterComcorewell health [facility] on above:Performed By: #### MORPHX, CRP, BMP, CBC, SED #### [facility] [address] [place] [phone] Garbage Truck Helper: SHER MirzaO2 [Moles/Vol]24 mmol/DEhilyz48-66RzhnsFulton County Health CenterComcorewell health [facility] on above:Performed By: #### MORPHX, CRP, BMP, CBC, SED #### [facility] [address] [place] [address] Garbage Truck Helper: SHER Mirzareatinine [Mass/Vol]1.3 mg/dLHigh0.5-0.9[facility] on above:Performed By: #### MORPHX, CRP, BMP, CBC, SED #### [facility] [address] [phone] Garbage Truck Helper: Emily George MDGFR/1.73 sq M.predicted among non-blacks MDRD (S/P/Bld) [Vol rate/Area]51 mL/min/{1.73_m2}Low>60[facility] Health CenterComcorewell health will[facility] hospital on above:Result Comment: These results are [...] #### MORPHX, CRP, BMP, CBC, SED #### [facility] [address] [place] [address] Garbage Truck Helper: Emily George MDGlucose [Mass/Vol]110 mg/bKRood81-73OfnjyMemorial Health System Selby General HospitalComment on above:Performed By: #### MORPHX, CRP, BMP, CBC, SED #### [facility] [address] [place] [address] Garbage Truck Helper: ANNMARIE Mirzahosphorus, Inorg.3.9 mg/dLNormal2.6-4.5F[facility] County Health CenterComment on above:Performed By: #### MORPHX, CRP, BMP, CBC, SED #### [facility] [address] [place] [address] Garbage Truck Helper: ANNMARIE Mirzaotassium [Moles/Vol]4.5 mmol/LNormal3.7-5.3MMemorial Health System Selby General HospitalComment on above:Performed By: #### MORPHX, CRP, BMP, CBC, SED #### [facility] [address] [place] [address] Garbage Truck Helper: MARIKA Mirzaodium [Moles/Vol]135 mmol/WXospye895-929VvmncFulton County Health CenterComment on above:Performed By: #### MORPHX, CRP, BMP, CBC, SED #### [facility] [address] [place] [address] Garbage Truck Helper: Emily George MDUrea nitrogen [Mass/Vol]23 mg/dLHigh6-20F[facility] County Health CenterComment on above:Performed By: #### MORPHX, CRP, BMP, CBC, SED #### [facility] [address] [place] [address] Garbage Truck Helper: Emily George MDVitamin D 25 Hydroxyon [id number]-ctedlvhljgcvla D3 [Mass/Vol]29.2 ng/mLLow30.0 - 100.0 ng/mLInova Alexandria HospitalComment on above: Reference Range: Vitamin D status Range Deficiency <20 ng/mL Mild Deficiency 20-30 ng/mL Sufficiency 30-100 ng/mL Toxicity >100 ng/mL Interpretation and review of laboratory resultsAbnormalBon [facility] Bon [facility] Memorial HospitalVitamin D 25 OHon 68-04-4023Ysliijr D 25 OH29.2 ng/mLLow 30.0-100.0[facility] Health CenterComcorewell health will[facility] on above:Result Comment: Reference Range: Vitamin D status Range Deficiency <20 ng/mL Mild Deficiency 20-30 ng/mL Sufficiency 30-100 ng/mL Toxicity >100 ng/mLPerformed By: #### MORPHX, CRP, BMP, CBC, SED #### [facility] [address] [place] [address] Garbage Truck Helper: ARPAN Mirza CERVICAL SPINE COMPLETE 4-5 VIEWSon [...] BY: Gregorio Davila, DONormalNot AvailableBasic Metabolic Panelon [id number] gap [Moles/Vol]12 mmol/L9 - 17 mmol/LBon E[facility]ria Memorial HospitalCalcium [Mass/Vol]9.3 mg/dL8.6 - 10.4 mg/dLBon [facility] Chloride [Moles/Vol]104 mmol/L98 - 107 mmol/LBon [facility] Memorial HospitalCO2 [Moles/Vol]22 mmol/L20 - 31 mmol/LBon [facility] Memorial HospitalCreatinine [Mass/Vol] 1.3 mg/dLHigh0.5 - 0.9 mg/dLBon [facility] Memorial HospitalEst, Glom Filt Rkfp55Eqr- PINFBon Elyria Memorial HospitalComment on above: These results are not [...] that affects renal tubular secretion. Glucose [Mass/Vol]131 mg/sZYpqk08 - 99 mg/dLBon [facility] Memorial HospitalPotassium [Moles/Vol]4.4 mmol/L3.7 - 5.3 mmol/LBon [facility]ria Memorial HospitalSodium [Moles/Vol] 138 mmol/L135 - 144 mmol/LBon [facility]ria Memorial HospitalUrea nitrogen [Mass/Vol]17 mg/dL6 - 20 mg/dLBon [facility] Memorial HospitalBasic Metabolic Profon 38-15-6719Tfggh gap [Moles/Vol]12 mmol/LNormal9-17[facility] County Health CenterComment on above: Performed By: #### MORPHX, CRP, BMP, CBC, SED #### [facility] [address] [place] [address] Garbage Truck Helper: SHER Mirzaalcium [Mass/Vol]9.3 mg/dLNormal8.6-10.4F[facility] County Health CenterComment on above:Performed By: #### MORPHX, CRP, BMP, CBC, SED #### [facility] [address] [place] [phone] Garbage Truck Helper: SHER Mirzahloride [Moles/Vol]104 mmol/LIkkouv89-062WnwkeFulton County Health CenterComcorewell health [facility] on above:Performed By: #### MORPHX, CRP, BMP, CBC, SED #### [facility] [address] [place] [phone] Garbage Truck Helper: SHER MirzaO2 [Moles/Vol]22 mmol/MYnnhas07-27KbejaFulton County Health CenterComment on above:Performed By: #### MORPHX, CRP, BMP, CBC, SED #### [facility] [address] [phone] Garbage Truck Helper: SHER Mirzareatinine [Mass/Vol]1.3 mg/dLHigh0.5-0.9[facility] Health CenterComcorewell health will[facility] hospital on above:Performed By: #### MORPHX, CRP, BMP, CBC, SED #### [facility] [address] [place] [address] Garbage Truck Helper: Emily George MDGFR/1.73 sq M.predicted among non-blacks MDRD (S/P/Bld) [Vol rate/Area]52 mL/min/{1.73_m2}Low>60F[facility] County Health CenterComment on above:Result Comment: These results are [...] #### MORPHX, CRP, BMP, CBC, SED #### [facility] [address] [place] [phone] Garbage Truck Helper: Emily George MDGlucose [Mass/Vol]131 mg/xZYbsc49-25NprbeMemorial Health System Selby General HospitalComment on above:Performed By: #### MORPHX, CRP, BMP, CBC, SED #### [facility] [address] [place] [phone] Garbage Truck Helper: ANNMARIE Mirzaotassium [Moles/Vol]4.4 mmol/LNormal3.7-5.3MMemorial Health System Selby General HospitalComcorewell health [facility] hospital on above:Performed By: #### MORPHX, CRP, BMP, CBC, SED #### [facility] [address] [place] [address] Garbage Truck Helper: MARIKA Mirzaodium [Moles/Vol]138 mmol/ZWuqful106-324OslclFulton County Health CenterComcorewell health [facility] on above:Performed By: #### MORPHX, CRP, BMP, CBC, SED #### [facility] [address] [place] [address] Garbage Truck Helper: Emily George MDUrea nitrogen [Mass/Vol]17 mg/dLNormal6-20F[facility] County Health CenterComment on above:Performed By: #### MORPHX, CRP, BMP, CBC, SED #### [facility] [address] [place] [address] Garbage Truck Helper: SHER Mirza-Reactive Proteinon [id number] High sensitivity method [Mass/Vol]6.2 mg/LHigh0.0 - 5.0 mg/LBon [facility] CRP [Mass/Vol]6.2 mg/LHigh0.0-5.0F[facility] County Health CenterComment on above: Performed By: #### MORPHX, CRP, BMP, CBC, SED #### [facility] [address] [place] [phone] Garbage Truck Helper: SHER MirzaBCon 25-36-1923Otixeilcslx distribution width (RBC) [Ratio]19.4 %High12.1 - 15.2 %Bon [facility] Memorial HospitalHematocrit (Bld) [Volume fraction]32.3 %Low36.0 - 46.0 %Inova Alexandria HospitalHemoglobin (Bld) [Mass/Vol]9.9 g/dLLow12.0 - 16.0 g/dLBon [facility] Memorial HospitalInterpretation and review of laboratory resultsAbnormalBon The Christ HospitalH (RBC) [Entitic mass]28.0 pg26.0 - 34.0 pgBon The Christ HospitalHC (RBC) [Mass/Vol]30.7 g/dL Low31.0 - 37.0 g/dLBon Secours Mercy HealthMCV (RBC) [Entitic vol]91.2 fL80.0 - 100.0 fLBon Elyria Memorial HospitalPlatelet mean volume (Bld) [Entitic vol]11.7 fL 6.0 - 12.0 fLBon [facility] Hospital HealthPlatelets (Bld) [#/Vol]154 10*3/uLBon Elyria Memorial HospitalRBC (Bld) [#/Vol]3.54 10*6/uLLow4.00 - 5.20 m/uLBon E[facility]ria Memorial HospitalWBC other (Bld) [#/Vol]3.8Bon St. Michael's HospitalErythrocyte distribution width (RBC) [Ratio]19.4 %High12.1-15.2MMemorial Health System Selby General HospitalComment on above:Performed By: #### MORPHX, CRP, BMP, CBC, SED #### [facility] [address] [place] [address] Garbage Truck Helper: Emily George MDHematocrit (Bld) [Volume fraction]32.3 %Low 36.0-46.0F[facility] County Health CenterComment on above:Performed By: #### MORPHX, CRP, BMP, CBC, SED #### [facility] [address] [place] [address] Garbage Truck Helper: Emily George MDHemoglobin (Bld) [Mass/Vol]9.9 g/dLLow12.0-16.0 [facility] CenterComment on above:Performed By: #### MORPHX, CRP, BMP, CBC, SED #### [facility] [address] [place] [address] Garbage Truck Helper: ELISABET MirzaCH (RBC) [Entitic mass]28.0 kfVtsmlu20.0-34.0 [facility] CenterComcorewell health [facility] on above:Performed By: #### MORPHX, CRP, BMP, CBC, SED #### [facility] [address] [place] [address] Garbage Truck Helper: VINCENT MirzaC (RBC) [Mass/Vol]30.7 g/dLLow31.0-37.0F[facility] County [facility] CenterComment on above:Performed By: #### MORPHX, CRP, BMP, CBC, SED #### [facility] [address] [place] [address] Garbage Truck Helper: ELISABET MirzaCV (RBC) [Entitic vol]91.2 uAGepumu24.0-100.0 [facility] CenterComment on above:Performed By: #### MORPHX, CRP, BMP, CBC, SED #### [facility] [address] [place] [phone] Garbage Truck Helper: Haja Mirza mean volume (Bld) [Entitic vol]11.7 fL Normal6.0-12.0F[facility] County Health CenterComment on above:Performed By: #### MORPHX, CRP, BMP, CBC, SED #### [facility] [address] [place] [address] Garbage Truck Helper: Terrence Mirza (Bld) [#/Vol]154 10*3/zLStsasd092-808 [facility] CenterComcorewell health will[facility] on above:Performed By: #### MORPHX, CRP, BMP, CBC, SED #### [facility] [address] [place] [address] Garbage Truck Helper: ELMO Mirza (Bld) [#/Vol]3.54 10*6/uLLow4.00-5.20[facility] CenterComment on above:Performed By: #### MORPHX, CRP, BMP, CBC, SED #### [facility] [address] [place] [address] Garbage Truck Helper: LLOYD Mirza (Bld) [#/Vol]3.8 10*3/uLNormal3.5-11.0F[facility] County Health CenterComment on above:Performed By: #### MORPHX, CRP, BMP, CBC, SED #### [facility] [address] [place] [address] Garbage Truck Helper: ELISABET MirzaORPHOLOGY CHECKon [id number] Rehan (Bld) [Interp]MODERATE ANISOCYTOSISRussell County Medical Center Morphology Checkon 80-67-7501Bpvmyjxdpt Rehan (Bld) [Interp]MODERATENormalMerNorth General HospitalComment on above:Result Comment: ANISOCYTOSISPerformed By: #### MORPHX, CRP, BMP, CBC, SED #### [facility] [address] [place] [phone] Garbage Truck Helper: Emily George MDNo Panel Informationon 91-12-4648Vrevgcdvzlciyx and review of laboratory resultsAbnormalRussell County Medical CenterSedimentation Rateon 58-11-5522Ukhdkrzlevyze Rate19 mm/HrNormal0-20 [facility] CenterComcorewell health [facility] on above:Performed By: #### MORPHX, CRP, BMP, CBC, SED #### [facility] [address] [place] [address] Garbage Truck Helper: Emily George MDESR Photometric method (Bld) [Velocity]19Bon St. Michael's HospitalCom Metabolic Profon 04-14-2025 Albumin [Mass/Vol]4.2 g/dLNormal3.5-5.2MMemorial Health System Selby General HospitalComcorewell health [facility] on above: Performed By: #### LIPR, GLYHGB ####[facility] [address] [place], [place] [id number] Lab Director: Placido Pierce MD#### CP ####[facility] [address] [place] [address] Lab Director: Emily George MD#### INSU ####[facility] [address]trpfcsfbtg[address]97 [place] [address] Lab Director: Placido Pierce, [facility] Mnw[address] [place], [place] [phone] Director: Emily George MD Albumin/Glob Ratio1.5Nvvnzw1.0-2.5F[facility] County Health CenterComment on above: Performed By: #### LIPR, GLYHGB ####[facility] [address]dhk[address] [place] [address] Lab Director: Placido Pierce MD#### CP ####[facility] Fpb7626 [place], [place] [phone] Director: Emily George MD#### INSU ####[facility] Cavlatgvaqlu[address] [place], [place] [phone] Director: Placido Pierce, [facility] Nuf[address] [place], [place] [phone] Director: Emily George MD Alkaline Rvnm706 U/EWyqq91-230VcztkFulton County Health CenterComment on above:Performed By: #### KINDRA GLYHGB ####[facility] [address]zvlmv60[address] [place] [address] Lab Director: Placido Pierce MD#### CP ####[facility] Gkg1071 [place], [place] [phone] Director: Emily George MD#### INSU ####[facility] Wmznwvuhxqnk1727 [place] [address] Lab Director: Placido Pierce, [facility] Nxx0425 [place], [place] [phone] Director: Emily George MD ALT [Catalytic activity/Vol]23 U/LNormal5-33[facility] Health CenterComment on above:Performed By: #### LIPR, GLYHGB ####[facility] Cnsahjmperoz7425 [place] [address] Lab Director: Placido Pierce MD#### CP ####[facility] Ozj2536 [place] [phone] Director: Emily George MD#### INSU ####[facility] Zhfitrldnndj6632 [place] [address] Lab Director: Placido Pierce, [facility] Ltd[address] [place] [address] Lab Director: Talisha Mirzaon gap [Moles/Vol]14 mmol/LNormal9-17[facility] Comment on above:Performed By: #### LIPR, GLYHGB ####[facility] G[address]blhkzasff3355 [place] [address] Lab Director: Placido Pierce MD#### CP ####[facility] Wpu6616 [place] [phone] Director: Emily George MD#### INSU ####[facility] Fgksfymukigo1623 [place] [address] Lab Director: Placido Pierce [facility] Ihb4431 [place] [address] Lab Director: Emily George MDAST [Catalytic activity/Vol]22 U/LNormal<32[facility] CenterComment on above:Performed By: #### LIPR, GLYHGB ####[facility] Degrglqyrxew1216 [place] [address] Lab Director: Placido Pierce MD#### CP ####[facility] Nme3648 [place] [address] Lab Director: Emily George MD#### INSU ####[facility] Winfkdnznihp3066 [place] [address] Lab Director: Placido Pierce [facility] Hob[address]104 [place] [address] Lab Director: Emily George MDBilirubin [Mass/Vol]0.5 mg/dL Normal0.3-1.2MMemorial Health System Selby General HospitalComment on above:Performed By: #### LIPR, GLYHGB ####[facility] Dulomibhgvme2706 [place], [place] [phone] Director: Placido Pierce MD#### CP ####[facility] Dds2593 [place], [place] [phone] Director: Emily George MD#### INSU ####[facility] Msygbddbsrjh4522 [place], [place] [phone] Director: Placido PierceTri[facility] Oon1229 [place], [place] [phone] Director: SHER Mirzaalcium [Mass/Vol] 9.4 mg/dLNormal8.6-10.4[facility] Health CenterComment on above:Performed By: #### LIPR, GLYHGB ####[facility] Swxyitevsehw04[address] [place], [place] [phone] Director: Placido Pierce MD#### CP ####[facility] Ffr0855 [place], [place] [phone] Director: Emily George MD#### INSU ####[facility] Mebdcucehnok5[address] [place], [place] [phone] Director: Placido Pierce, [facility] Xui6959 [place], [place] [phone] Director: Emily George MD Chloride [Moles/Vol]99 mmol/DVtukdj94-661EkrkgFulton County Health CenterComment on above: Performed By: #### LIPR, GLYHGB ####[facility] Syogzkovyjhk37[address] [place], [place] [phone] Director: Placido Pierce MD#### CP ####[facility] Wpr9247 [place] [address] Lab Director: Emily George MD#### INSU ####[address] [place] [address] Lab Director: Palcido Pierce, [facility] [address] [place] [address] [phone] Director: Emily George MD CO2 [Moles/Vol]26 mmol/LEmigjm50-85CbowqFulton County Health CenterComment on above: Performed By: #### LIPR, GLYHGB ####[address] [place], [place] [phone] Director: Placido Pierce MD#### CP ####[address] [address] Lab Director: Emily George MD#### INSU ####[address] [address] Lab Director: Placido Pierce, [address] [address] Lab Director: Emily George MD Creatinine [Mass/Vol]1.4 mg/dLHigh0.5-0.9[facility] Health CenterComment on above: Performed By: #### LIPR, GLYHGB ####[facility] Vryjgvvgsmwo5535 [place] [address] Lab Director: Placido Pierce MD#### CP ####[facility] Hwf4735 [place], [place] [phone] Director: Emily George MD#### INSU ####[address] [address] Lab Director: Placido Pierce, [facility] [address] [place], [place] [phone] Director: Emily George MD GFR/1.73 sq M.predicted among non-blacks MDRD (S/P/Bld) [Vol rate/Area]47 mL/min/{1.73_m2}Low>60[facility] Health CenterComment on above:Result Comment: These results are [...] renal tubular secretion.Performed By: #### LIPMeka GLYHGB ####[address] [place], [place] [phone] Director: Placido Pierce MD#### CP ####[facility] Hca1168 [place], [place] [phone] Director: Emily George MD#### INSU ####[address] [place], [place] [phone] Director: Placido Pierce, [facility] Nsi0017 [place], [place] [phone] Director: Emily George MDGlucose [Mass/Vol]114 mg/dLHigh 70-99MMemorial Health System Selby General HospitalComment on above:Performed By: #### LIPR, GLYHGB ####[facility] Wzdehuvtkcit8192 [place], [place] [phone] Director: Placido Pierce MD#### CP ####[facility] Qzy5993 [place], [place] [phone] Director: Emily George MD#### INSU ####[facility] Ovavihwcmogc4789 [place] [address] Lab Director: Placido Pierce, [facility] Nhk1932 [place] [address] Lab Director: ANNMARIE Mirzaotassium [Moles/Vol]4.1 mmol/L Normal3.7-5.3MMemorial Health System Selby General HospitalComment on above:Performed By: #### LIPR, GLYHGB ####[facility] [address] [place] [address] Lab Director: Placido Pierce MD#### CP ####[facility] [address] [place] [address] Lab Director: Emily George MD#### INSU ####[address] [address] Lab Director: Placido Pierce, [facility] Rwb[address] [place] [address] Lab Director: ANNMARIE Mirzarotein [Mass/Vol] 7.2 g/dLNormal6.4-8.3MMemorial Health System Selby General HospitalComment on above:Performed By: #### LIPR, GLYHGB ####[address] [phone] Director: Placido Pierce MD#### CP ####[facility] [address] [place] [address] Lab Director: Emily George MD#### INSU ####[address] [address] Lab Director: Placido Pierce, [facility] Bxo[address] [place] [address] Lab Director: Emily George MD Sodium [Moles/Vol]139 mmol/LArjbld210-582Dmncu Willard HospitalComment on above: Performed By: #### LIPR, GLYHGB ####[facility] Vvrzdjoeptdg7834 [place] [address] Lab Director: Placido Pierce MD#### CP ####[facility] Tse5891 [place] [address] Lab Director: Emily George MD#### INSU ####[facility] Mbjfwrgwomhj0182 [place] [address] Lab Director: Placido Pierce, [facility] Kfx6265 [place] [address] Lab Director: Emily George MD Urea nitrogen [Mass/Vol]18 mg/dLNormal6-20[facility] CenterComment on above:Performed By: #### LIPR, GLYHGB ####[facility] [place], [place] [phone] Director: Placido Pierce MD#### CP ####[facility] Crd9865 [place] [phone] Director: Emily George MD#### INSU ####[facility] [place] [address] Lab Director: Placido Pierce, [facility] Coi2807 [place] [address] Lab Director: SHER Mirzaomprehensive Metabolic Panelon 50-28-4399Htpegcg [Mass/Vol]4.2 g/dL3.5 - 5.2 g/dLBon E[facility]ria Memorial HospitalAlbumin/Globulin [Mass ratio]1.4 {ratio}1.0 - 2.5Bon [facility] HospitalALP [Catalytic activity/Vol]109 U/LHigh 35 - 104 U/LBon E[facility]ria Memorial HospitalALT [Catalytic activity/Vol]23 U/L5 - 33 U/L [facility] HospitalAnion gap [Moles/Vol]14 mmol/L9 - 17 mmol/LBon [facility] Memorial HospitalAST [Catalytic activity/Vol]22 U/LNINF - 32 U/LBon E[facility]ria Memorial HospitalBilirubin [Mass/Vol]0.5 mg/dL0.3 - 1.2 mg/dLBon [facility] Calcium [Mass/Vol]9.4 mg/dL8.6 - 10.4 mg/dLBon [facility] Memorial HospitalChloride [Moles/Vol]99 mmol/L98 - 107 mmol/LBon E[facility]ria Memorial HospitalCO2 [Moles/Vol]26 mmol/L20 - 31 mmol/LBon [facility] Memorial HospitalCreatinine [Mass/Vol]1.4 mg/dLHigh 0.5 - 0.9 mg/dLBon E[facility]ria Memorial HospitalEst, Glom Filt Rauh39Gux- PINFBon Elyria Memorial HospitalComment on above: These results are not [...] that affects renal tubular secretion. Glucose [Mass/Vol]114 mg/cIUnhh78 - 99 mg/dLBon [facility] Interpretation and review of laboratory resultsAbnormalInova Alexandria Hospital Potassium [Moles/Vol]4.1 mmol/L3.7 - 5.3 mmol/LBon [facility] Memorial HospitalProtein [Mass/Vol]7.2 g/dL6.4 - 8.3 g/dLBon E[facility]ria Memorial HospitalSodium [Moles/Vol]139 mmol/L135 - 144 mmol/LBon E[facility]ria Memorial HospitalUrea nitrogen [Mass/Vol]18 mg/dL6 - 20 mg/dLBon St. Michael's HospitalHemoglobin A1Con 37-43-3922Afaigta glucose Estimated from glycated hemoglobin (Bld) [Mass/Vol]123 mg/dLBon Elyria Memorial HospitalComment on above:The ADA and AACC recommend providing the estimated average glucose result to permit better patient understanding of their HBA1c result. HbA1c (Bld) [Mass fraction]5.9 %4.0 - 6.0 %Bon [facility] Memorial HospitalBon Elyria Memorial HospitalGlucose [Mass/Vol]123 mg/dLNormCentervilleComment on above:Result Comment: The ADA and AACC recommend providing the estimated average glucose result to permit better patient understanding of their HBA1c result.Performed By: #### LIPR, GLYHGB ####[facility] [address]vtbwkw32[address] [place], [place] [phone])[phone] Director: Placido Pierce MD#### CP ####[facility] Mzf1012 [place], [place] [phone] Director: Emily George MD#### INSU ####[facility] [address]qs[address]qgbuk[address] [place], [place] [phone] Director: Placido Pierce, [facility] [address] [place] [address])[phone] Director: Emily George MD HbA1c (Bld) [Mass fraction]5.9 %Normal4.0-6.0[facility] CenterComment on above:Performed By: #### LIPR, GLYHGB ####[facility] [address] [place], [place] [phone] Director: Placido Pierce MD#### CP ####[facility] Jqn8245 [place], [place] [phone] Director: Emily George MD#### INSU ####[facility] Rawwunhtnxze8673 [place], [place] [phone] Director: Placido Pierce, [facility] Evo9486 [place], [place] [address])[phone] Director: Emily George MDInsulinon 76-42-3392Kpfenbs70.0 mU/LNFostoria City Hospital Comment on above:Performed By: #### LIPR, GLYHGB ####[facility] [address] [place] [address] Lab Director: Placido Pierce MD#### CP ####[facility] Pqa3935 [place] [phone] Director: Emily George MD#### INSU ####[address] [phone] Director: Placido Pierce [facility] Qpj[address] [place] [address] Lab Director: Richard Mirza RangeNormalFulton County Health CenterComment on above: Result Comment: Fastin.6-24.9 30 min: 20-112 60 min: 29-88 90 min: 26-84 120 min: 22-79Performed By: #### LIPR, GLYHGB ####[address] [phone] Director: Placido Pierce MD#### CP ####[facility] Gmb[address] [place] [phone] Director: Emily George MD#### INSU ####[address] [address] Lab Director: Placido Pierce [facility] L[address] [place] [address] Lab Director: SHER Mirzaollection Info.FASTINGNormalFulton County Health CenterComcorewell health [facility] on above:Performed By: #### LIPR, GLYHGB ####[facility] Fcgjiymhikth9333 [place], [place] [phone] Director: Placido Pierce MD#### CP ####[facility] Op[address] [place] [address] [phone] Director: Emily George MD#### INSU ####[address] [place] [address] Lab Director: Placido Pierce, [facility] Ius[address] [place], [place] [phone] lab Director: Emily George MDInsulin, Totalon 01-51-8748Gcogowg95.0 mU/LBon [facility]ria Memorial HospitalInsulin CommentFASTInova Mount Vernon HospitalInsulin Reference Range:Inova Alexandria HospitalComment on above:Fastin.6-24.9 30 min: 20-112 60 min: 29-88 90 min: 26-84 120 min: 22-79 Lipid Panelon 98-79-2983Yfccdilhnks [Mass/Vol]158 mg/dL0 - 199 mg/dLBon [facility]ria Memorial HospitalComment on above: Cholesterol Guidelines: <200 Desirable 200-240 Borderline >240 Undesirable Cholesterol in HDL [Mass/Vol]31 mg/dLLow40 - PINF mg/dLBCarilion New River Valley Medical [facility] Comment on above: HDL Guidelines: <40 Undesirable 40-59 Borderline >59 Desirable Cholesterol in LDL [Mass/Vol]59 mg/dL0 - 100 mg/dLBCarilion New River Valley Medical Center Comment on above: LDL Guidelines: <100 Desirable 100-129 Near to/above Desirable 130-159 Borderline >159 Undesirable Direct (measured) LDL and calculated LDL are not interchangeable tests. Cholesterol in VLDL [Mass/Vol]68 mg/dLHigh1 - 30 mg/dLBon [facility] Cholesterol.total/Cholesterol in HDL [Mass ratio]5.1 {ratio}HighNINF - 5.0Inova Alexandria HospitalInterpretation and review of laboratory resultsAbnormalInova Alexandria HospitalTriglyceride [Mass/Vol]341 mg/dLHighNINF - 150 mg/dLBon [facility] HospitalComment on above: Triglyceride Guidelines: <150 Desirable 150-199 Borderline 200-499 High >499 Very high Based on AHA Guidelines for fasting triglyceride, July 2012. Lipid Profileon 43-00-5908Wfmmowzkifk [Mass/Vol]158 mg/dLNormal0-199Fulton County Health CenterComment on above:Result Comment: Cholesterol Guidelines: <200 Desirable 200-240 Borderline >240 UndesirablePerformed By: #### LIPR, GLYHGB ####[facility] Bekwmiiiaxpu6763 [place], [place] [phone] Director: Placido Pierce MD#### CP ####[facility] Kpe8448 [place], [place] [phone] Director: Emily George MD#### INSU ####[address] [phone] Director: Placido Pierce, [facility] Gmr9155 [place] [address] Lab Director: Emily George MDCholesterol in HDL [Mass/Vol]31 mg/dLLow>40MerNorth General HospitalComment on above:Result Comment: HDL Guidelines: <40 Undesirable 40-59 Borderline >59 DesirablePerformed By: #### LIPR, GLYHGB ####[address] [phone] Director: Placido Pierce MD#### CP ####[facility] Uag1070 [place] [phone] Director: Emily George MD#### INSU ####[address] [phone] Director: Placido Pierce, [facility] Ksq0849 [place], [place] [address])[phone] Director: SHER Mirzaholesterol in LDL [Mass/Vol]59 mg/dLNormal0-100Ohio State East Hospitalment on above:Result Comment: LDL Guidelines: <100 Desirable 100-129 Near to/above Desirable 130-159 Borderline >159 Undesirable Direct (measured) LDL and calculated LDL are not interchangeable tests.Performed By: #### LIPR, GLYHGB ####[facility] Xcgmjxirtjai7323 [place], [place] [phone] Director: Placido Pierce MD#### CP ####[facility] Nni3937 [place] [address] Lab Director: Emily George MD#### INSU ####[facility] [place] [address] Lab Director: Placido Pierce, [facility] Vly6604 [place] [address] Lab Director: Emily George MD Cholesterol in VLDL [Mass/Vol]68 mg/dLHigh1-30Fulton County Health CenterComment on above:Performed By: #### LIPR, GLYHGB ####[facility] Oqfbfjjygzvd3166 [place] [address] Lab Director: Placido Pierce MD#### CP ####[facility] Vvm2292 [place] [phone] Director: Emily George MD#### INSU ####[facility] [place] [address] Lab Director: Placido Pierce, [facility] Pov0831 [place] [address] Lab Director: Oliverio Mirzasteromatthew.total/Cholesterol in HDL [Mass ratio]5.1 {ratio} High<5.0Fulton County Health CenterComment on above:Performed By: #### LIPR, GLYHGB ####[facility] Aggxafqosdxa0429 [place] [address] Lab Director: Placido Pierce MD#### CP ####[facility] Nvj5301 [place] [address] Lab Director: Emily George MD#### INSU ####[facility] [place] [address] Lab Director: Placido Pierce, [facility] Obr7840 [place] [address] Lab Director: Emily George MDTriglyceride [Mass/Vol]341 mg/dL High<150Fulton County Health CenterComment on above:Result Comment: Triglyceride Guidelines: <150 Desirable 150-199 Borderline 200-499 High >499 Very high Based on AHA Guidelines for fasting triglyceride, July 2012.Performed By: #### LIPR, GLYHGB ####[employer] Thpgcvmmutow7104 [place], [place] [phone] Lab Director: Placido Pierce MD#### CP ####[facility] Emf5761 [place] [address] Lab Director: Emily George MD#### INSU ####[facility] [place] [address] Lab Director: Placido Pierce [facility] Aoz2902 [place] [address] Lab Director: Emily George MD No Panel Informationon 79-67-6784Lpr [facility] Foot - right WO and W [...] superimposed infection be difficult to include. Bon [facility] Foot - right WO and W contrast IVOrdered By: Robin Mcarthur on 41-06-1836Wfh [facility] Work Phone: MRI FOOT RIGHT W WO CONTRASTon [id number]: MRI FOOT RIGHT W WO CONTRAST COMPARISON: [...] by: Robin Mcarthur MD 04/12/25 Final result [facility] FOOT RIGHT W WO CONTRASTEXAM: MRI [...] Signed by: Robin Mcarthur MD 04/12/25 Final resultNormCentervilleRadiology Study observation (narrative) Northwest [facility] CenterI FOOT RIGHT W WO CONTRASTOrdered By: Radiologist Radiology on 55-05-6038ZQHTDoctors Hospital of Springfield Work Phone: bUN & Creatinineon 60-88-3159Opdbchrgab [Mass/Vol]1.3 mg/dLHigh0.5 - 0.9 mg/dLBon [facility] Memorial HospitalSariah Hahn Akmu37Pkz- PINF Inova Alexandria HospitalComment on above: These results are not [...] tubular secretion. Interpretation and review of laboratory resultsAbnormalInova Alexandria Hospital Urea nitrogen [Mass/Vol]15 mg/dL6 - 20 mg/dLBon St. Michael's HospitalBUN + Creatinineon 25-80-7943Odbwpzwvph [Mass/Vol]1.3 mg/dLHigh 0.5-0.9Ohio State East Hospitalment on above:Performed By: #### BUNCRT ####[facility] Irn6782 [place] [phone] Director: Emily George MDGFR/1.73 sq M.predicted among non-blacks MDRD (S/P/Bld) [Vol rate/Area]52 mL/min/{1.73_m2}Low>60Fulton County Health CenterComment on above:Result Comment: These results are [...] affects renal tubular secretion.Performed By: #### BUNCRT ####[place] [address]4705[address] lab Director: Emily George MDUrea nitrogen [Mass/Vol]15 mg/dLNoal6-20Fulton County Health CenterComment on above:Performed By: #### BUNCRT ####[facility] [address] [place] [address] lab Director: ELSIABET MirzaT BUN + CREATININEon 07-52-2438Eopzlqcnyb [Mass/Vol]1.3 mg/dLHigh0.5 - 0.9 mg/dLMOAB REGIONAL H[facility]ITAL HealthcareInterpretation and review of laboratory resultsAbnoJefferson Lansdale HospitalMHPT FBJM27Jzy- PINFDoctors Hospital of SpringfieldComment on above: These results are not intended [...] secretion. Urea nitrogen [Mass/Vol]15 mg/dL6 - 20 mg/dLDoctors Hospital of SpringfieldOriginal Ordering Provider: ROBBIN DENTONFormerly [facility] Foot - right WO and W contrast Chay [id number] Study observation (narrative)Sid [facility] HospitalXR Foot - right 2 Viewson [id number] Result: XRAY RIGHT FOOT: AP/OBL- No fx. Lis franc diastasis concern with deformity. DP 2 mild cortical disruption 1-2mm possible. No bone density changesNovant Health New Hanover [facility] Cult,Woundon [id number],WoundSpecimen Description .TOE Direct Exam NO NEUTROPHILS SEEN [...] <=1 SUSCEPTIBLE Trimethoprim/Sulfa <=10 SUSCEPTIBLE Vancomycin 1 SUSCEPTIBLESusceptibleFulton County Health CenterComment on above: Performed By: #### MORPHX, CRP, BMP, CBC, SED #### [facility] [address] [place], [place] [phone] Garbage Truck Helper: ARPAN Mirza Foot - right 2 Viewson 33-10-4973Ekznpdnqj Study observation (narrative)[facility] Natri. Peptideon 04-04-2025 Natriuretic peptide B (Bld) [Mass/Vol]262 pg/mLNormal<300[facility] Comment on above:Result Comment: An age-independent cutoff point of 300 pg/ml has a 98% negative predictive value excluding acute heart failure.Performed By: #### BNP, SED, CRP ####[facility] Djs9938 [place], [place] [phone] Lab Director: Jessica Mirza Natriuretic Peptideon 89-69-4029Nlcsngemkjo peptide B (Bld) [Mass/Vol]262 pg/mLNINF - 300 pg/mLBon [facility] HospitalComment on above:An age-independent cutoff point of 300 pg/ml has a 98% negative predictive value excluding acute heart failure. C-Reactive Proteinon [id number] High sensitivity method [Mass/Vol]46.7 mg/L High0.0 - 5.0 mg/LBon [facility] Memorial HospitalInterpretation and review of laboratory resultsAbnormalInova Alexandria HospitalCRP [Mass/Vol]46.7 mg/LHigh 0.0-5.0Fulton County Health CenterComment on above:Performed By: #### BNP, SED, CRP ####[facility] Nsq[address] [facility] HealthwilianLAS [facility]GAS, [place] [phone] Director: Emily George [facility] with Auto Differentialon 04-04-2025 Basophils (Bld) [#/Vol]0.02 10*3/uLBon Secours [facility] Memorial HospitalBasophils/100 WBC (Bld)0 %0 - 2 %[facility] Alexandria HospitalEosinophils (Bld) [#/Vol]0.07 10*3/uLBon Secours Elyria Memorial HospitalEosinophils/100 WBC (Bld)1 %0 - 5 %[facility] Erythrocyte distribution width (RBC) [Ratio]18.4 %High12.1 - 15.2 %[facility] Alexandria HospitalHematocrit (Bld) [Volume fraction]30 %Low36.0 - 46.0 %[facility] Alexandria HospitalHemoglobin (Bld) [Mass/Vol]9.6 g/dLLow12.0 - 16.0 g/dLBon SecTogus VA Medical CenterImmature granulocytes (Bld) [#/Vol]0.13 10*3/uLBon SecTogus VA Medical CenterImmature granulocytes/100 WBC (Bld)2 %0 - 5 %[facility] Interpretation and review of laboratory resultsAbnormalInova Alexandria Hospital Lymphocytes/100 WBC (Bld)23 %15 - 40 %Bon SecTogus VA Medical CenterLymphocytes/100 WBC (Bld)1.39 %Bon SecAkron Children's HospitalH (RBC) [Entitic mass]27 pg26.0 - 34.0 pgBon SecAkron Children's HospitalHC (RBC) [Mass/Vol]32 g/dL31.0 - 37.0 g/dLBon Secours OhioHealth Pickerington Methodist HospitalV (RBC) [Entitic vol]84.3 fL80.0 - 100.0 fLInova Alexandria HospitalMonocytes/100 WBC (Bld)6 %4 - 8 %[facility] Monocytes/100 WBC (Bld)0.37 %[facility] HospitalNeutrophils/100 WBC (Bld)68 %47 - 75 %[facility] Alexandria HospitalPlatelet mean volume (Bld) [Entitic vol]11.7 fL6.0 - 12.0 fLInova Alexandria HospitalPlatelets (Bld) [#/Vol]186 10*3/uLBon [facility] Memorial HospitalRBC (Bld) [#/Vol]3.56 10*6/uLLow4.00 - 5.20 m/uLInova Alexandria HospitalSegmented neutrophils/100 WBC (Bld)4.09 %[facility] Alexandria HospitalWBC other (Bld) [#/Vol]6.1Bon St. Michael's HospitalCBC with Diffon 98-47-7206Ihi. Basophil0.02 k/uLNormal0.00-0.20[facility] Comment on above:Performed By: #### CDP ####[facility] Hqw6061 [place] [address] Lab Director: Emily George MD Abs.Imm.Granulocyte0.13 k/uLNormal0.00-0.30Fulton County Health CenterComment on above:Performed By: #### CDP ####[facility] Ixe1856 [place] [address] Lab Director: Emily George MDAbs.Neutrophil (Seg)4.09 k/uLNormal2.5-7.0F[facility] County Health CenterComment on above:Performed By: #### CDP ####[facility] Vit6034 [place] [address] Lab Director: Emily George MDBasophils/100 WBC (Bld)0 %Normal 0-2[facility] Memorial HospitalComment on above:Performed By: #### CDP ####[facility] Bja[address] [place] [address] Lab Director: Emily George MDEosinophils (Bld) [#/Vol]0.07 10*3/uLNormal0.00-0.40 [facility] County Health CenterComment on above:Performed By: #### CDP ####[facility] Ohb0576 [facility] [place] [address] Lab Director: Emily George MDEosinophils/100 WBC (Bld)1 %Normal0-[address] [place] [address] Comment on above:Performed By: #### CDP ####[facility] Bgp2256 [facility] [place] [address] Lab Director: Emily George MD Erythrocyte distribution width (RBC) [Ratio]18.4 %High12.1-15.2MMemorial Health System Selby General HospitalComment on above:Performed By: #### CDP ####[facility] Ozg4172 [facility] [place] [address] Lab Director: Emily George MDHematocrit (Bld) [Volume fraction]30.0 %Low36.0-46.0F[facility] County Health CenterComment on above:Performed By: #### CDP ####[facility] Mga1461 [place] [address] Lab Director: Emily George MDHemoglobin (Bld) [Mass/Vol]9.6 g/dLLow12.0-16.0[facility] Comment on above:Performed By: #### CDP ####[facility] Tlx1248 [facility] [place] [address] Lab Director: Emily George MD Immature granulocytes/100 WBC (Bld)2 %Normal0-5F[facility] County Health CenterComment on above:Performed By: #### CDP ####[facility] Euz9651 [place] [address] Lab Director: Leelee Mirzamphocytminh (Bld) [#/Vol]1.39 10*3/uLNormal1.00-4.80F[facility] County Health CenterComment on above: Performed By: #### CDP ####[facility] Zie0078 [place] [address] Lab Director: Shanelle Mirzahocytes/100 WBC (Bld)23 %Lgoxwc08-47ZqluqFulton County Health CenterComment on above:Performed By: #### CDP ####[facility] Zkk4752 [place] [address] Lab Director: ELISABET MirzaCH (RBC) [Entitic mass]27.0 pg Lfczzu31.0-34.0F[facility] County Health CenterComment on above:Performed By: #### CDP ####[facility] Mnt6176 [place] [phone] Director: ELISABET MirzaCHC (RBC) [Mass/Vol]32.0 g/fSAtendw66.0-37.0 [facility] Health CenterComment on above:Performed By: #### CDP ####[facility] Feb[address] [place] 62694[address] Lab Director: ELISABET MirzaCV (RBC) [Entitic vol]84.3 mYRhfifo04.0-100.0[facility] County Health CenterComment on above:Performed By: #### CDP ####[facility] Lnf7430 [place] [address] Lab Director: ELISABET Mirzaonocytes (Bld) [#/Vol]0.37 10*3/uLNormal0.00-1.00[facility] County Health CenterComment on above:Performed By: #### CDP ####[facility] Fpg[address]125 [place] [address] Lab Director: ELISABET Mirzaonocytes/100 WBC (Bld)6 %Normal4-8[facility] County Health CenterComment on above:Performed By: #### CDP ####[facility] Duj2477 [facility] [place] [address] Lab Director: Vincent Mirzautrophil (Seg) 68 %Opxvjt67-50KgiodFulton County Health CenterComment on above:Performed By: #### CDP ####[facility] Fyl4616 [place] [phone] Director: Haja Mirza mean volume (Bld) [Entitic vol]11.7 fLNormal6.0-12.0[facility] Health CenterComment on above:Performed By: #### CDP ####[facility] Qrr1782 [facility] [place] [phone] Director: Terrence Mirza (Bld) [#/Vol]186 10*3/uLNormal 140-450F[facility] County Health CenterComment on above:Performed By: #### CDP ####[facility] Tjq5738 [place] [phone] Director: LASHAY MirzaBC (Bld) [#/Vol]3.56 10*6/uLLow4.00-5.20[facility] Health CenterComment on above:Performed By: #### CDP ####[facility] Wrb4559 [place] [address] Lab Director: LLOYD Mirza (Bld) [#/Vol]6.1 10*3/uLNormal3.5-11.0[facility] on above:Performed By: #### CDP ####[facility] Sog[address] [place] [address] lab Director: Emily George MD No Panel Informationon 04-04-2025 No acute osseous injury. Soft tissue swelling of the left great toe on the right second toe without radiographic evidence of osteomyelitis. Postsurgical changes partially imaged on the left. [facility] CONSOLIDATEDEXAM: XR TOE LEFT (MIN 2 VIEWS), [...] blastic bony lesions. There is normal mineralization. [facility] Daksha Bourne MD - 04/04/2025 EXAM: XR [...] Postsurgical changes partially imaged on the left. [facility] CenterNo Panel InformationOrdered By: Daksha Hannah on 53-80-6079Urd [facility] Work Phone: sedimentation Rateon 05-40-0102OFV Photometric method (Bld) [Velocity]32StoneSprings Hospital CenterInterpretation and review of laboratory resultsAbnormalRussell County Medical Center Sedimentation Rate32 mm/HrHighland Hospital006 Boyd StreetComment on above: Performed By: #### BNP, SED, CRP ####[facility] Dew6704 [place] [address] lab Director: LIONEL MirzaR TOE LEFT (MIN 2 VIEWS)on [id number] TOE LEFT (MIN 2 VIEWS)EXAM: XR TOE [...] by: Daksha Hannah MD Signed by: Daksha Hnanah MD 04/04/25 Final resultNoWood County HospitalXR TOE RIGHT (MIN 2 VIEWS)on 04-04-2025 [...] Signed by: Daksha Hannah MD 04/04/25 Final resultNormalFulton County Health CenterXR Toes - left 2 Viewson 04-04-2025 Radiology Study observation (narrative)Sid [facility] HospitalXR Toes - right 2 Viewson 44-35-9021Inzfplnoo Study observation (narrative)Sid [facility] Centerlynnette [facility] BRIAN DIGITAL SCREEN BILATERALon 61-64-9069TEB BRIAN DIGITAL SCREEN BILATERALHISTORY: Screening. TECHNIQUE: Bilateral [...] be mailed to the patient. Performing Facility: [facility] [address] [place] [id number] Interpreted by: Micky Lauren Jr., MD Signed by: Micky Lauren Jr., MD 02/28/25 Final resultNormalFulton County Health CenterComp Metabolic Profon 15-26-0751Ewyqlbs [Mass/Vol]3.8 g/dLNormal3.5-5.2MercValley Children’s HospitalComment on above:Performed By: #### LIPR, LDLDIR, GLYHGB #### [facility] [employer] [address] [place] [address] Garbage Truck Helper: Placido Pierce MD #### CP #### [facility] [address] [place] [address] Garbage Truck Helper: Manish Mirza Idas718 /[id number] Turner StreetComment on above:Performed By: #### LIPR, LDLDIR, GLYHGB #### [facility] [employer] [address] [place] [address] [phone] Garbage Truck Helper: Placido Pierce MD #### CP #### [facility] [address] [place], [place] [phone] Garbage Truck Helper: RAMA Mirza [Catalytic activity/Vol]11 U/LNormal5-33[facility] on above:Performed By: #### LIPR, LDLDIR, GLYHGB #### [address] [phone] Garbage Truck Helper: Placido Pierce MD #### CP #### [facility] [address] [place], [place] 7470590 Garbage Truck Helper: Myles Mirza gap [Moles/Vol]12 mmol/LNormal9-17[facility] Health CenterComment on above:Performed By: #### LIPR, LDLDIR, GLYHGB #### [address] [phone] Garbage Truck Helper: Placido Pierce MD #### CP #### [facility] [address] [place], [place] [phone] Garbage Truck Helper: YADY Mirza [Catalytic activity/Vol]14 U/LNormal<32[facility] Health CenterComcorewell health will[facility] on above:Performed By: #### LIPR, LDLDIR, GLYHGB #### [address] [phone] Garbage Truck Helper: Placido Pierce MD #### CP #### [facility] [address] [place], [place] 2235590 Garbage Truck Helper: Emily George MDBilirubin [Mass/Vol]0.4 mg/dLNormal0.3-1.2MMemorial Health System Selby General HospitalComcorewell health will[facility] on above:Performed By: #### LIPR, LDLDIR, GLYHGB #### [address] [phone] Garbage Truck Helper: Placido Pierce MD #### CP #### [facility] [address] [place], [place] [phone] Garbage Truck Helper: Emily George MDBUN/CRE Jxdys69Dmqgia5-62Hpyez [facility] Comment on above:Performed By: #### LIPR, LDLDIR, GLYHGB #### [address] [address] Garbage Truck Helper: Placido Pierce MD #### CP #### [facility] [address] [place], [place] 9987890 Garbage Truck Helper: SHER Mirzaalcium [Mass/Vol]9.3 mg/dLNormal8.6-10.4[facility] Health CenterComment on above:Performed By: #### LIPR, LDLDIR, GLYHGB #### [address] [phone] Garbage Truck Helper: Placido Pierce MD #### CP #### [facility] [address] [place], [place] 2486290 Garbage Truck Helper: SHER Mirzahloride [Moles/Vol]102 mmol/TDvjaew54-815MclkjFulton County Health CenterComment on above:Performed By: #### LIPR, LDLDIR, GLYHGB #### [address] [address] Garbage Truck Helper: Placido Pierce MD #### CP #### [facility] [address] [place], [place] 7295390 Garbage Truck Helper: SHER MirzaO2 [Moles/Vol]25 mmol/KBwspgm28-60XtlazFulton County Health CenterComment on above:Performed By: #### LIPR, LDLDIR, GLYHGB #### [address] [address] Garbage Truck Helper: Placido Pierce MD #### CP #### [facility] [address] [place] [address] Garbage Truck Helper: SHER Mirzareatinine [Mass/Vol]1.1 mg/dLHigh0.5-0.9[facility] Health CenterComment on above:Performed By: #### LIPR, LDLDIR, GLYHGB #### [address] [phone] Garbage Truck Helper: Placido Pierce MD #### CP #### [facility] [address] [place] [address] Garbage Truck Helper: Emily George MDGFR/1.73 sq M.predicted among non-blacks MDRD (S/P/Bld) [Vol rate/Area]63 mL/min/{1.73_m2}Normal>60[facility] Comment on above:Result Comment: These results [...] secretion.Performed By: #### LIPR, LDLDIR, GLYHGB #### [address] [id number] Garbage Truck Helper: Placido Pierce MD #### CP #### [facility] [address] [place] [address] Garbage Truck Helper: Emily George MDGlucose [Mass/Vol]125 mg/yNAshx45-97DpbjdMemorial Health System Selby General HospitalComment on above:Performed By: #### LIPR, LDLDIR, GLYHGB #### [facility] [address] [place], [place] 7888608 Garbage Truck Helper: Placido Pierce MD #### CP #### [facility] [address] [place], [place] 6926190 Garbage Truck Helper: ANNMARIE Mirzaotassium [Moles/Vol]4.2 mmol/LNormal3.7-5.3MMemorial Health System Selby General HospitalComment on above:Performed By: #### LIPR, LDLDIR, GLYHGB #### [address] 1800608 Garbage Truck Helper: Placido Pierce MD #### CP #### [facility] [address] [place], [place] 9560190 Garbage Truck Helper: ANNMARIE Mirzarotein [Mass/Vol]7.2 g/dLNormal6.4-8.3MMemorial Health System Selby General HospitalComment on above:Performed By: #### LIPR, LDLDIR, GLYHGB #### [address] [phone] Garbage Truck Helper: Placido Pierce MD #### CP #### [facility] [address] [place], [place] 3223990 Garbage Truck Helper: MARIKA Mirzaodium [Moles/Vol]139 mmol/SKgnpzx201-554LnohhFulton County Health CenterComment on above:Performed By: #### LIPR, LDLDIR, GLYHGB #### [address] [address] Garbage Truck Helper: Placido Pierce MD #### CP #### [facility] [address] [place], [place] [id number] Garbage Truck Helper: Emily George MDUrea nitrogen [Mass/Vol]21 mg/dLHigh6-20Fulton County Health CenterComment on above:Performed By: #### LIPR, LDLDIR, GLYHGB #### [address] [address] Garbage Truck Helper: Placido Pierce MD #### CP #### [facility] [address] [place] [address] Garbage Truck Helper: Emily George, [facility] FAIRFAXompflower hospitalensive Metabolic Panelon 20-12-8588Tiexdzh [Mass/Vol]3.8 g/dL3.5 - 5.2 g/dLBon Elyria Memorial HospitalALP [Catalytic activity/Vol]115 U/LHigh35 - 104 U/LBon [facility] Memorial HospitalALT [Catalytic activity/Vol]11 U/L5 - 33 U/LBon [facility] HospitalAnion gap [Moles/Vol]12 mmol/L9 - 17 mmol/LBon [facility] HospitalAST [Catalytic activity/Vol]14 U/L NINF - 32 U/LBon [facility] Memorial HospitalBilirubin [Mass/Vol]0.4 mg/dL0.3 - 1.2 mg/dLBon [facility] HospitalCalcium [Mass/Vol]9.3 mg/dL8.6 - 10.4 mg/dLBon Rady Children'S HospitalLoccie Fairfield Medical CenterChloride [Moles/Vol]102 mmol/L98 - 107 mmol/LBon [facility] HospitalCO2 [Moles/Vol]25 mmol/L20 - 31 mmol/LBon [facility] Creatinine [Mass/Vol]1.1 mg/dLHigh0.5 - 0.9 mg/dLBon Rady Children'S HospitalLoccie Fairfield Medical CenterEst, Glom Filt Rate63- PINFBon Elyria Memorial HospitalComment on above: These results are not [...] that affects renal tubular secretion. Glucose [Mass/Vol]125 mg/uMTvvt45 - 99 mg/dLBon Rady Children'S HospitalRedbiotec Interpretation and review of laboratory resultsAbnormalBon [facility] Potassium [Moles/Vol]4.2 mmol/L3.7 - 5.3 mmol/LBon [facility] MusikkiProtein [Mass/Vol]7.2 g/dL6.4 - 8.3 g/dLBon [facility] Memorial HospitalSodium [Moles/Vol]139 mmol/L135 - 144 mmol/LBon [facility] Memorial HospitalUrea nitrogen [Mass/Vol]21 mg/dL High6 - 20 mg/dLBon [facility] Memorial HospitalUrea nitrogen/Creatinine [Mass ratio]19 mg/mg9 - 20Bon [facility] Michael's HospitalHemoglobin A1Con 63-17-6706Ktvoift glucose Estimated from glycated hemoglobin (Bld) [Mass/Vol]103 mg/dLBon [facility] on above:The ADA and AACC recommend providing the estimated average glucose result to permit better patient understanding of their HBA1c result. HbA1c (Bld) [Mass fraction]5.2 %4.0 - 6.0 %[address] Michael's HospitalGlucose [Mass/Vol]103 mg/dLNormalWhite Hospital on above:Result Comment: The ADA and AACC recommend providing the estimated average glucose result to permit better patient understanding of their HBA1c result.Performed By: #### LIPR, LDLDIR, GLYHGB #### [place] [id number] Garbage Truck Helper: Placido Pierce MD #### CP #### [facility] [address] [place] [address] Garbage Truck Helper: Emily George MDHbA1c (Bld) [Mass fraction]5.2 %Normal4.0-6.0[facility] on above:Performed By: #### LIPR, LDLDIR, GLYHGB #### [address] [place], [place] [id number] Garbage Truck Helper: Placido Pierce MD #### CP #### [facility] [address] [place] [address] Garbage Truck Helper: Emily George MDLDL Chol, Directon 10-77-0471JOJ Chol, Jencam42 mg/dLNormal<100[facility] on above:Performed By: #### LIPR, LDLDIR, GLYHGB ####[email or web address] [address] ChaJackson[place], [place] [phone] Director: Placido Pierce MD#### CP ####[facility] [address] [place] [address] lab Director: Emily George MD LDL Cholesterol, Directon 01-53-9994Ilzmyxzayge in LDL [Mass/Vol]94 mg/dLNINF - 100 mg/dLBon [facility] [employer][email or web address] [facility] HospitalUbiCastLipid Panelon 24-75-5291Xcckzofnqvl [Mass/Vol]179 mg/dL0 - 199 mg/dLBon [facility] CenterADPTwin County Regional Healthcare Comment on above: Cholesterol Guidelines: <200 Desirable 200-240 Borderline >240 Undesirable Cholesterol in HDL [Mass/Vol]31 mg/dLLow40 - PINF mg/dLBon [facility] LOGIC DEVICES Meetingmix.com Comment on above: HDL Guidelines: <40 Undesirable 40-59 Borderline >59 Desirable Cholesterol in LDL [Mass/Vol]Can not be calculated0 - 100 mg/dLBon Rady Children'S HospitalLoccie [facility]field Medical CenterComment on above: LDL Guidelines: <100 Desirable 100-129 Near to/above Desirable 130-159 Borderline >159 Undesirable Direct (measured) LDL and calculated LDL are not interchangeable tests. Cholesterol in VLDL [Mass/Vol]Can not be calculated1 - 30 mg/dLBon [facility] Medical CenterUbiCastCholesterol.total/Cholesterol in HDL [Mass ratio]5.8 {ratio}[facility] CenterADP Meetingmix.comInterpretation and review of laboratory resultsAbnormalBon Secours Depaul Medical CenterADP Meetingmix.comTriglyceride [Mass/Vol]407 mg/dLHighNINF - 150 mg/dLBon [facility] LOGIC DEVICESTwin County Regional HealthcareComment on above: Triglyceride Guidelines: <150 Desirable 150-199 Borderline 200-499 High >499 Very high Based on AHA Guidelines for fasting triglyceride, July 2012. LoginRadiusLipid Profileon 03-76-4835Muayvmzmnqj [Mass/Vol]179 mg/dLNormal0-199Fulton County Health CenterComment on above:Result Comment: Cholesterol Guidelines: <200 Desirable 200-240 Borderline >240 UndesirablePerformed By: #### LIPR, LDLDIR, GLYHGB #### [employer] [address] [place] [address] Garbage Truck Helper: Placido Pierce MD #### CP #### [facility] [address] [place] [address] Garbage Truck Helper: SHER Mirzaholesterol in HDL [Mass/Vol]31 mg/dLLow>40[facility] on above:Result Comment: HDL Guidelines: <40 Undesirable 40-59 Borderline >59 DesirablePerformed By: #### LIPR, LDLDIR, GLYHGB #### [address] [address] Garbage Truck Helper: Placido Pierce MD #### CP #### [facility] [address] [place], [place] [address] Garbage Truck Helper: SHER Mirzaholesterol,LDLCan not be calculatedNormal0-100 [facility] on above:Result Comment: LDL Guidelines: <100 Desirable 100-129 Near to/above Desirable 130-159 Borderline >159 Undesirable Direct (measured) LDL and calculated LDL are not interchangeable tests.Performed By: #### LIPR, LDLDIR, GLYHGB #### [address] [place] [address] Garbage Truck Helper: Placido Pierce MD #### CP #### [facility] [address] [place] [address] Garbage Truck Helper: SHER Mirzaholesterol,VLDLCan not be calculatedNormal1-30 [facility] on above:Performed By: #### LIPR, LDLDIR, GLYHGB #### [address] [address] Garbage Truck Helper: Placido Pierce MD #### CP #### [facility] [address] [place], [place] [address] Garbage Truck Helper: SHER Mirzaholesterol.total/Cholesterol in HDL [Mass ratio] 5.8 {ratio}NormalFulton County Health CenterComment on above:Performed By: #### LIPR, LDLDIR, GLYHGB #### [facility] [address] [place] [address] Garbage Truck Helper: Placido Pierce MD #### CP #### [facility] [address] [place], [place] [id number] Garbage Truck Helper: Emily George MDTriglyceride [Mass/Vol]407 mg/dLHigh<150Fulton County Health CenterComment on above:Result Comment: Triglyceride Guidelines: <150 Desirable 150-199 Borderline 200-499 High >499 Very high Based on AHA Guidelines for fasting triglyceride, July 2012.Performed By: #### LIPR, LDLDIR, GLYHGB #### [email or web address] [address] [place] [address] Garbage Truck Helper: Placido Pierce MD #### CP #### [facility] [address] [place] [address] Garbage Truck Helper: Emily George MDUS THYROIDon 32-60-1343MA THYROIDEXAM: US THYROID HISTORY: Thyroid nodule COMPARISON: [...] cm. Isthmus: 0.2 cm [facility] OMARCity HospitalMicky espinosa Jr., MD - 09/07/2024 EXAM: US [...] Continued follow-up annually is recommended through 2026. LoginRadius Thyroid glandOrdered By: Micky Lauren on 09-07-2024 LoginRadius Work Phone: us Thyroid glandon 13-20-3415Flyfujhhj Study observation (narrative)LoginRadiusMagnesiumon 04-38-0986Vyvbuvtqu [Mass/Vol]2.2 mg/dL1.6 - 2.6 mg/dLBON SECfotobabbleNo Panel Informationon 96-56-1905TUQ SECFreeLunched [facility] CENTERProtein / creatinine ratio, urineon 64-25-2722Svanscqypd (U) [Mass/Vol]132.0 mg/dL28.0 - 217.0 mg/dLBON [facility] SCOTTSDALEFreeLunched HEALTHProtein (U) [Mass/Vol]9 mg/dLBON [facility] SCOTTSDALEFreeLunched [facility] MEDICAL CENTERComment on above:No normal range established.Urine Total Protein Creatinine Ratio0.07BON [facility] Get SatisfactionOHIOHEALTH RIVERSIDE METHODIST HOSPITALRenal Function Panelon 05-10-2024 Albumin [Mass/Vol]4.2 g/dL3.5 - 5.2 g/dLBON [facility] NetstoryAnion gap [Moles/Vol]15 mmol/L9 - 17 mmol/LBON [facility] Tourvia.me [facility] MED[facility] CENTERCalcium [Mass/Vol]9.2 mg/dL8.6 - 10.4 mg/dLBON [facility] Tourvia.me HEALTHChloride [Moles/Vol]101 mmol/L98 - 107 mmol/LBON [facility] Tourvia.me HEALTHCO2 [Moles/Vol]25 mmol/L20 - 31 mmol/LBON [facility] Get SatisfactionOHIOHEALTH RIVERSIDE METHODIST HOSPITALCreatinine [Mass/Vol]1.3 mg/dLHigh0.5 - 0.9 mg/dLBON [facility]OS[facility] SCOTTSDALEfotobabbleEst, Glom Filt Ktdh94Odn- PINFBON [facility] SCOTTSDALEFreeLunched [facility] MED[facility] CENTERComment on above: These results are not intended [...] that affects renal tubular secretion. Glucose [Mass/Vol]141 mg/lAPydd78 - 99 mg/dLBON Flywheel Sports Interpretation and review of laboratory resultsAbnormalBON [facility]OS[facility] OF SCOTTSDALEfotobabble Phosphate [Mass/Vol]3.8 mg/dL2.6 - 4.5 mg/dLBON [facility] SCOTTSDALEfotobabblePotassium [Moles/Vol]4.0 mmol/L3.7 - 5.3 mmol/LBON [facility] SCOTTSDALEFreeLunched HEALTHSodium [Moles/Vol] 141 mmol/L135 - 144 mmol/LBON [facility] HEALTHUrea nitrogen [Mass/Vol]19 mg/dL6 - 20 mg/dLBON SECOURS [facility] HEALTHUrea nitrogen/Creatinine [Mass ratio]15 mg/mg9 - 20BON [facility] HEALTHUrinalysison 36-57-3961Aqaxheygt Ql (U) NegativeNEGATIVEBON [facility] HEALTHClarity (U)ClearClearBON [facility] HEALTHColor (U)YellowYellowBON SECOHIOHEALTH BERGER HOSPITALCommentBON [facility] HEALTHGlucose Test strip (U) [Mass/Vol]NegativeNEGATIVE mg/dLBON SECOHIOHEALTH BERGER HOSPITALHemoglobin Auto test strip Ql (U)NegativeNEGATIVEBON [facility] HEALTH Interpretation and review of laboratory resultsAbnormalBON [facility] Ketones (U) [Mass/Vol]NegativeNEGATIVE mg/dLBON SECOHIOHEALTH BERGER HOSPITALLeukocyte esterase Test strip Ql (U)NegativeNEGATIVEBON [facility] HEALTHNitrite Ql (U) NegativeNEGATIVEBON [facility] HEALTHpH (U)5.0 [pH]5.0 - 8.0BON [facility] HEALTHProtein (U) [Mass/Vol]TRACEAbnormalNEGATIVE mg/dLBON [facility] HEALTH Specific gravity (U) [Rel density]1.0201.005 - 1.030BON [facility] Urobilinogen Qn (U)Normal0.0 - 1.0 EU/dLBON SECSTOUGHTON HOSPITALLon 38-16-6102FOwmtqeac: [id number] Received: 02/16/24 Status: ARLEN So Num: [id number] Spec Type: Surgical Subm Dr: Frances Harris DPM, MS Tissues: A Soft Tissue/Surgical Margin-Other than Tumor,Mass,Lip or Becka (LT MID FOOT CH Procedures: HE/2, Gross/Micro L4 Age/ Patient Sex Location Account Attending Physician Celina Gaspar 43/F LABELL [id number] Frances Harris DPM, MS SPEC NUM: [id number] RECD: 02/16/24 STATUS: ARLEN SO NUM: [id number] MAYTE: 02/15/24-[address]: Frances Harris,INDER, MS ENTERED: 02/16/24 [facility] DR: Ursula,Darwin SPEC TYPE: Surgical DEPT: [...] sections reveal firm, yellow spongy bone matrix. News Photographer sections are submitted following decalcification in A1?A2. Clinical history: varus deformity left ankle, charcot join left ankle and foot. CPT Codes 56162 Specimen: [id number] Received: 02/16/24 Status: ARLEN So Num: [id number] Spec Type: Surgical Subm Dr: Frances Harris DPM, MS Tissues: A Soft Tissue/Surgical Margin-Other than Tumor,Mass,Lip or Becka (LT MID FOOT CH Procedures: HE/2, Gross/Micro L4 Patient: Celina Gaspar [id number] (Continued) Signed (signature on file) Juan José Yu MD 02/17/[address] [place] [address] Physician GroupLipid Panelon 06-15-2023 Cholesterol [Mass/Vol]174 mg/dLNINF - 200 mg/dLBON Flywheel SportsComment on above: Cholesterol Guidelines: <200 Desirable 200-240 Borderline >240 Undesirable Cholesterol in HDL [Mass/Vol]30 mg/dLLow40 - PINF mg/dLBON [employer] Comment on above: HDL Guidelines: <40 Undesirable 40-59 Borderline >59 Desirable Cholesterol in LDL [Mass/Vol]77 mg/dL0 - 130 mg/dLBON [employer] Comment on above: LDL Guidelines: <100 Desirable 100-129 Near to/above Desirable 130-159 Borderline >159 Undesirable Direct (measured) LDL and calculated LDL are not interchangeable tests. Cholesterol.total/Cholesterol in HDL [Mass ratio]5.8 {ratio}HighNINF - 5BON Flywheel SportsInterpretation and review of laboratory resultsAbnormalBON Flywheel SportsTriglyceride [Mass/Vol]334 mg/dLHighNINF - 150 mg/dLBON Flywheel SportsComment on above: Triglyceride Guidelines: <150 Desirable 150-199 Borderline 200-499 High >499 Very high Based on AHA Guidelines for fasting triglyceride, July 2012. BON Flywheel SportsBUN & Creatinineon 08-78-8052Sshmtxjsrg [Mass/Vol]1.08 mg/dLHigh0.50 - 0.90 mg/dLBON [facility] HEALTHGFR/1.73 sq M.predicted MDRD (S/P/Bld) [Vol rate/Area]- PINFBON SUMMA HEALTHComment on above: These results are not intended [...] Urea nitrogen [Mass/Vol]21 mg/dLHigh6 - 20 mg/dLBON [facility]MA HEALTHCBC with Auto Differentialon 76-74-0907Hsefvwbw Eos #0.10BON [facility] Absolute Lymph #1.70BON [facility] HEALTHAbsolute [place] #0.50BON [facility] HEALTHBasophils (Bld) [#/Vol]0.00 10*3/uLBON SECOHIOHEALTH BERGER HOSPITALBasophils/100 WBC (Bld)1 %0 - 2 %BON [facility] HEALTHDifferential TypeYESBON SUMMA HEALTHEosinophils/100 WBC (Bld)1 %0 - 5 %BON [facility] HEALTHHematocrit (Bld) [Volume fraction]36.2 %36 - 46 %BON [facility] HEALTHHemoglobin (Bld) [Mass/Vol]12.2 g/dL12.0 - 16.0 g/dLBON [facility] HEALTHInterpretation and review of laboratory resultsAbnormalBON SECOHIOHEALTH BERGER HOSPITALLymphocytes/100 WBC (Bld)23 %15 - 40 %BON [facility]ONH (RBC) [Entitic mass]28.7 pg26 - 34 pgBON SECPROMEDICA BAY PARK HOSPITALHC (RBC) [Mass/Vol]33.7 g/dL31 - 37 g/dLBON [facility] AVONV (RBC) [Entitic vol]85.3 fL80 - 100 fLBON [facility] Monocytes/100 WBC (Bld)7 %4 - 8 %BON [facility] HEALTHPlatelet distribution width (Bld) [Ratio]18.1 %High12.1 - 15.2 %BON [facility] HEALTHPlatelets (Bld) [#/Vol]150 10*3/uLBON [facility] HEALTHRBC (Bld) [#/Vol]4.25 10*6/uL4.0 - 5.2 m/uLBON [facility] HEALTHSegmented neutrophils/100 WBC (Bld)68 %47 - 75 %B[facility] HEALTHSegs Absolute5.30B[facility] HEALTHWBC (Bld) [#/Vol]7.6 10*3/uLBON [facility] HEALTHBON [facility] HEALTHChlorideon 50-64-7336Ngmndbnl [Moles/Vol]99 mmol/L98 - 107 mmol/LBON [facility] Netstory Glucose, Randomon 64-29-1349Xmfemso [Mass/Vol]107 mg/yQSpnq74 - 99 mg/dLBON [facility] HEALTHNo Panel Informationon 01-72-0165Dkxrlkokqxwult and review of laboratory resultsAbnormalBON [facility] HEALTHB[facility] HEALTH Potassiumon 47-12-9071Eylintliy [Moles/Vol]4.6 mmol/L3.7 - 5.3 mmol/LBON SECNORTH VALLEY HOSPITALY HEALTHSodiumon 78-47-8878Xbxhya [Moles/Vol]134 mmol/JZxf385 - 144 mmol/L [facility] SECNORTH VALLEY HOSPITALSilke HEALTHWet Prep, Genitalon 51-56-8990Xefhqrjoxkqxms and review of laboratory resultsAbnormalBON [facility] HEALTHMicroorganism or agent identified Nom (Unsp spec)FEW WBCAbnormalBON [facility] HEALTHMicroorganism or agent identified Nom (Unsp spec)MODERATE EPITHELIAL CELLSAbnormalBON [facility] HEALTHMicroorganism or agent identified Nom (Unsp spec)MODERATE BACTERIA AbnormalBON SECNORTH VALLEY HOSPITALY HEALTHMicroorganism or agent identified Nom (Unsp spec)NO TRICHOMONAS SEENBON [facility] HEALTHMicroorganism or agent identified Nom (Unsp spec)NO FUNGAL ELEMENTS SEENBON [facility] HEALTH Microorganism or agent identified Nom (Unsp spec)NO CLUECELL SEENINOVA HEALTH SYSTEMSpecimen Description.VAGINABON [facility] HEALTHCT FOOT LT WO CONon 25-31-8336YW FOOT LT WO CONEXAMINATION: CT FOOT LT [...] Electronically authenticated by: EMILY PRITCHETT Date: 2023-02-04 20:[address] [place], [place] [address]XR ANKLE LEFT 3+ VIEWS (STANDARD)on 74-76-2129AD ANKLE LEFT 3+ VIEWS (STANDARD)EXAMINATION: XR ANKLE [...] RODRIGUEZ on ThuJan 06, 2023 6:11:26 PM [facility]TPe[facility] Comment on above:Order Comment: Injury/Trauma or Illness?:Injury/Trauma How long have you had these symptoms (acute/chronic)?:Acute Reason for exam?:left lateral ankle pain History of cancer?: Surgeries, chemotherapy, or radiation?: Type of Exam?:Initial Mechanism of injury?:rolled ankle 4 days agoMRI FOOT LEFT W WO CONTRASTon 06-25-2022 Combined with the accompanying radiographs, 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 [facility] CONSOLIDATEDEXAM: MRI FOOT LEFT W WO CONTRAST [...] osteomyelitis. No nonenhancing abscess pockets are identified. [facility] Mike Yoder MD - 06/25/2022 EXAM: MRI [...] fragmentation of the navicular and cuneiform bones. SEC Watch Phone: radiology Study observation (narrative)SEC Watch Phone: MRI FOOT LEFT W WO CONTRASTOrdered By: Mike Villavicencio on 76-09-4972KWM [employer] Phone: XR FOOT LEFT (2 VIEWS)on 27-05-2628Zuzfh is a linear metallic foreign body projecting between the second and third metatarsals. There is also a metallic foreign body within the lower leg. There is fragmentation of the navicular as well as of all 3 cuneiforms. The appearance is consistent with the patient's history of neuropathy. [facility] CONSOLIDATEDEXAM: XR FOOT LEFT (2 VIEWS) HISTORY: M79.5. The patient is a 42-year-old female. Evaluate for foreign body. COMPARISON: None. [facility] Mike Walden MD - 06/25/2022 EXAM: XR [...] consistent with the patient's history of neuropathy. [employer] Watch Phone: radiology Study observation (narrative)SEC Watch Phone: XR FOOT LEFT (2 VIEWS)Ordered By: Mike Villavicencio on 14-70-6406JUZ [employer] Phone: US HEAD NECK SOFT TISSUE THYROIDon [...] fat without shadowing, suggestive of a lipoma. [facility] Micky Manzanares Jr., MD - 05/27/2022 EXAM: [...] It does not meet criteria for FNA. [employer] Watch Phone: radiology Study observation (narrative)SEC Watch Phone: US HEAD NECK SOFT TISSUE THYROIDOrdered By: Micky Lauren on 10-22-6639XOE [employer] Phone: Rejection Notificationon 35-93-2128Znummkxmn below NormalOhio State East HospitalComcorewell health will[facility] on above:Result Comment: Unable to perform testing; no specimen received. To perform testing the specimen will need to be recollected. No specPerformed By: #### REJEC #### [facility] [address] [facility] [address] Bsnxctpc TestCXURNNormalOhio State East HospitalComcorewell health [facility] on above: Performed By: #### REJEC #### [facility] [address] [address] BCZ Cholesterol, Directon 19-24-8761Eiuhptsjslx in LDL [Mass/Vol]84 mg/dL<100BON Flywheel SportsDIAMOND CHILDREN'S MEDICAL CENTER Flywheel SportsCBC with Auto Differentialon 62-09-9489Nkmnexgb Eos #0.10BON SECfotobabbleAbsolute Lymph #1.40BON Flywheel SportsAbsolute [place] #0.30BON [employer] Basophils (Bld) [#/Vol]0.00 10*3/uLBON Flywheel SportsBasophils/100 WBC (Bld)1 %0 - 2 %X2IMPACTDifferential TypeYESBON SECfotobabbleEosinophils/100 WBC (Bld)1 %0 - 5 %X2IMPACTHematocrit (Bld) [Volume fraction]35.7 %Low36 - 46 %[facility] HEALTH SYSTEMHemoglobin (Bld) [Mass/Vol]12.0 g/dL12.0 - 16.0 g/dLBON SUMMA HEALTHInterpretation and review of laboratory resultsAbnormalBON SUMMA HEALTHLymphocytes/100 WBC (Bld)25 %15 - 40 %BON [facility] (RBC) [Entitic mass]28.0 pg26 - 34 pgBON SECPROMEDICA BAY PARK HOSPITALHC (RBC) [Mass/Vol]33.7 g/dL31 - 37 g/dLBON SECPROMEDICA BAY PARK HOSPITALV (RBC) [Entitic vol]83.3 fL80 - 100 fLBON SUMMA HEALTHMonocytes/100 WBC (Bld)5 %4 - 8 %[facility] HEALTH SYSTEMPlatelet distribution width (Bld) [Ratio]16.4 %High12.1 - 15.2 %[facility] Platelets (Bld) [#/Vol]168 10*3/uLBON [facility]MA HEALTHRBC (Bld) [#/Vol]4.29 10*6/uL4.0 - 5.2 m/uLBON [facility] HEALTHSegmented neutrophils/100 WBC (Bld) 68 %47 - 75 %[facility] HEALTH SYSTEMSegs Absolute3.90BON [facility] WBC (Bld) [#/Vol]5.7 10*3/uLBON [facility] Comprehensive Metabolic Panelon 82-14-8195Yhrgisa [Mass/Vol]4.2 g/dL3.5 - 5.2 g/dLBON SUMMA HEALTHALP (Bld) [Catalytic activity/Vol]88 U/L35 - 104 U/L BON [facility] HEALTHALT [Catalytic activity/Vol]29 U/L5 - 33 U/LBON SECOHIOHEALTH BERGER HOSPITALAnion gap [Moles/Vol]11 mmol/L9 - 17 mmol/LBON [facility] HEALTH AST [Catalytic activity/Vol]27 U/L<32BON [facility] HEALTHBilirubin [Mass/Vol]0.65 mg/dL0.30 - 1.20 mg/dLBON [facility] HEALTHCalcium [Mass/Vol] 9.1 mg/dL8.6 - 10.4 mg/dLBON [facility] HEALTHChloride [Moles/Vol]101 mmol/L 98 - 107 mmol/LBON [facility] HEALTHCO2 [Moles/Vol]28 mmol/L20 - 31 mmol/LBON SECOHIOHEALTH BERGER HOSPITALCreatinine [Mass/Vol]1.04 mg/dLHigh0.50 - 0.90 mg/dLBON SUMMA HEALTHFree PSA/Total PSA [Mass fraction]6.8 g/dL6.4 - 8.3 g/dLBON SUMMA HEALTHGFR >60>60 mL/minBON SUMMA HEALTHGFR Non- Jwzqdrsm75 mL/minLow>60BON [facility] HEALTHGFR/1.73 sq M.predicted MDRD (S/P/Bld) [Vol rate/Area][facility]ALTH SYSTEMComment on above:Average GFR for 40-49 years old: 99 mL/min/1.73sq m Chronic Kidney Disease: <60 mL/min/1.73sq m Kidney failure: <15 mL/min/1.73sq m eGFR calculated using average adult body mass. Additional eGFR calculator available at: http://www.Rent My Items/multiple_crcl_2011.htm Glucose [Mass/Vol]103 mg/bZCyib70 - 99 mg/dLBON [facility] Interpretation and review of laboratory resultsAbnormalBON [facility] Potassium [Moles/Vol]3.9 mmol/L3.7 - 5.3 mmol/LBON [facility] HEALTHSodium [Moles/Vol]140 mmol/L135 - 144 mmol/LBON [facility]MA HEALTHUrea nitrogen (BldV) [Mass/Vol]13 mg/dL6 - 20 mg/dLBON SUMMA HEALTHUrea nitrogen/Creatinine (Bld) [Mass ratio]13BON [facility]MA HEALTHHIV Screenon 99-61-9900JRS Ag/AbNon-ReactiveNONREACTIVEINOVA HEALTH SYSTEMComment on above:No laboratory evidence of HIV infection. If acute HIV infection is suspected, consider testing for HIV-1 RNA. [facility] Get SatisfactionOHIOHEALTH RIVERSIDE METHODIST HOSPITALLipid Panelon 19-91-5769Fzaoctpwgag [Mass/Vol]184 mg/dL <200BON [facility]MA HEALTHComcorewell health [facility] on above: Cholesterol Guidelines: <200 Desirable 200-240 Borderline >240 Undesirable Cholesterol in HDL [Mass/Vol]30 mg/dLLow>40[facility] on above: HDL Guidelines: <40 Undesirable 40-59 Borderline >59 Desirable Cholesterol.total/Cholesterol in HDL [Mass ratio]6.1 {ratio}High<5BON [facility] HEALTHInterpretation and review of laboratory resultsAbnormalINOVA HEALTH SYSTEMLDL Cholesterol0 - 130 mg/dLBON SUMMA HEALTHComcorewell health [facility] on above:Calculation not valid for Triglyceride value greater than 400 mg/dL. Direct LDL reflexed LDL Guidelines: <100 Desirable 100-129 Near to/above Desirable 130-159 Borderline >159 Undesirable Direct (measured) LDL and calculated LDL are not interchangeable tests. Triglyceride [Mass/Vol]460 mg/dLHigh<150BON [facility] on above: Triglyceride Guidelines: <150 Desirable 150-199 Borderline 200-499 High >499 Very high Based on AHA Guidelines for fasting triglyceride, July 2012. [facility]No Panel Informationon [id number] HOSPITAL CENTERTSH with Reflexon [id number] Qn0.99 m[IU]/LBON [facility] Urinalysis with MicroscopicOrdered By: Lita Weeks on 08-01-2021-[facility] [email or web address] Work Phone: amorphous, UANOT REPORTEDNoneMemercy health [facility] Health Work Phone: bacteria, UARAREAbnormalNoneMemercy health [facility] hospital Health Work Phone: bilirubin UrineNegativeNEGATIVEBluffton Hospitalcy Health Work Phone: casts UANOT REPORTED/LPFMercy Health Work Phone: color, UAYellowYellowMercy Health Work Phone: crystals, UANOT REPORTEDNone /[facility]USMer[facility] Work Phone: epithelial Cells UA2 TO [...] Work Phone: pH, UA6.0[facility] Work Phone: Hrotein, UANegativeNEGATIVEMercy Health Work Phone: WBC, UANOT REPORTEDMercy Health Work Phone: renal Epithelial, UANOT REPORTED0 /HPFMercy Health Work Phone: Qpecific [place], UA1.020[facility] Work Phone: Trichomonas, UANOT REPORTEDNoneMercy [...] Work Phone: bilirubin UrineNegativeNEGATIVEMercy Health Work Phone: Gasts UANOT REPORTED/LPFMercy Health Work Phone: Bolor, UAYellowYellowMercy Health Work Phone: crystals, UANOT REPORTEDNone [...] Observations UANOT REPORTEDNOT REQ.[facility] Work Phone: cH, UA6.0[facility] Work Phone: Erotein, UANegativeNEGATIVEMercy Health Work Phone: JBC, UANOT REPORTEDMercy Health Work Phone: renal Epithelial, UANOT REPORTED0 /HPFMercy Health Work Phone: specific [place], UA1.025[facility] Work Phone: Trichomonas, UANOT REPORTEDNoneMercy Health Work Phone: Turbidity UAHazyAbnormalClearMercy Health Work Phone: Urinalysis CommentsFairfield Medical Center Health Work Phone: Urine HgbNegativeNEGATIVEFairfield Medical Center Health Work Phone: Urobilinogen, UrineNormalNormalFairfield Medical Center Health Work Phone: WBC, UA20 TO 500 /HPFMer Health Work Phone: Yeast, UANOT REPORTEDNoneMercy Health Work Phone: [facility] Work Phone: albuminOrdered By: Gregory Forbes on [id number] [Mass/Vol]4.2 g/dL3.5 - 5.2 g/dLFairfield Medical Center [employer].com Work Phone: bUN & CreatinineOrdered By: Gregory Forbes on 10-01-9150Dbgqhphclw [Mass/Vol]1.18 mg/dLHigh0.50 - 0.90 mg/dLFairfield Medical Center [employer] Work Phone: GFR >60>60 mL/minFairfield Medical Center [employer] Work Phone: GFR Non- Pktfdzdm26 mL/minLow>60[facility] [employer] Work Phone: GFR/1.73 sq M.predicted MDRD (S/P/Bld) [Vol rate/Area] [facility] [employer] Work Phone: comment on above:Average GFR for 40-49 years old: 99 mL/min/1.73sq m Chronic Kidney Disease: <60 mL/min/1.73sq m Kidney failure: <15 mL/min/1.73sq m eGFR calculated using average adult body mass. Additional eGFR calculator available at: http://www.MetaLINCS.[facility]/multiple_crcl_2012.htm GFR/1.73 sq M.predicted MDRD (S/P/Bld) [Vol rate/Area]NOT REPORTEDFairfield Medical Center [email or web address] Work Phone: Interpretation and review of laboratory results AbnormalBluffton HospitalRaizlabs Work Phone: Urea nitrogen (BldV) [Mass/Vol]19 mg/dL6 - 20 mg/dL [facility] [employer] Phone: calciumOrdered By: Gregory Forbes on [phone] [Mass/Vol]9.2 mg/dL8.6 - 10.4 mg/dLFairfield Medical Center [employer] Work Phone: electrolyte PanelOrdered By: Gregory Forbes on [phone] gap [Moles/Vol]10 mmol/L9 - 17 mmol/LMercy [employer] Work Phone: chloride [Moles/Vol]103 mmol/L98 - 107 mmol/LMercy [employer] Work Phone: cO2 [Moles/Vol]25 mmol/L20 - 31 mmol/LMercy [employer] Work Phone: potassium [Moles/Vol]4.2 mmol/L3.7 - 5.3 mmol/LMercy [employer] Work Phone: sodium [Moles/Vol]138 mmol/L135 - 144 mmol/LMercy [employer] Work Phone: MagnesiumOrdered By: Gregory Forbes on 05-20-2021 Magnesium [Mass/Vol]2.2 mg/dL1.6 - 2.6 mg/dLFairfield Medical Center [employer] Work Phone: No Panel InformationOrdered By: Gregory Forbes on [id number] [employer] Phone: phosphorusOrdered By: Gregory Forbes on 05-20-2021 Phosphate [Mass/Vol]3.7 mg/dL2.6 - 4.5 mg/dLBluffton HospitalRaizlabs Work Phone: UrinalysisOrdered By: Gregory Forbes on 05-20-2021 Bilirubin UrineNegativeNEGATIVEMercy Health Work Phone: color, UAYELLOWYELLOWMercy Health Work Phone: Glucose, UrNegativeNEGATIVEMercy Health Work Phone: Interpretation and review of laboratory results AbnormalMercy Health Work Phone: Ketones Ql (U)NegativeNEGATIVEMercy Health Work Phone: leukocyte esterase Test strip Ql (U)NegativeNEGATIVE [facility] Work Phone: Nitrite, UrineNegativeNEGATIVEMercy Health Work Phone: pH, UA5.0[facility] Work Phone: protein, UATRACEAbnormalNEGATIVEMercy Health Work Phone: specific [place], UA1.020[facility] Work Phone: Turbidity UACLEARCLEARMercy Health Work Phone: Urinalysis CommentsMercy Health Work Phone: Urine HgbNegativeNEGATIVEMercy Health Work Phone: Urobilinogen, UrineNormalNormalMercy Health Work Phone: [facility] Work Phone: [phone] By: Pattie Hull on 01-22-2021 SARS-CoV-2 (COVID-19) RNA SHARMIN+probe Ql (Unsp spec)[facility] Work Phone: [phone]-OnB-2 (COVID-19) RNA SHARMIN+probe Ql (Unsp spec)Not detectedNot DetectedFairfield Medical Center Health Work Phone: comment on above: The specimen is NEGATIVE for SARS-CoV-2, the novel coronavirus associated with COVID-19. A negative result does not rule out COVID-19. Twin SARS-CoV-2 for use on the Twin [employer] is a real-time RT-PCR test intended [...] this assay. Fact sheet for Healthcare Providers: https://www.[employer].gov/media/551838/download Fact sheet for Patients: https://www.[employer].gov/media/053657/download METHODOLOGY: RT-PCR Source.[employer] Phone: [phone]-80, PCRon 02-43-1212QIOO-CoV-2, RapidNot DetectedNot [employer] Phone: comment on above: Rapid NAAT: The [...] management decisions. Fact sheet for Healthcare Providers: https://www.[employer].gov/media/067028/download Fact sheet for Patients: https://www.fda.gov/media/791699/download Methodology: Isothermal Nucleic Acid Amplification Source.[employer] Phone: Otheron [phone]-CoV-2MVeterans Health Administration Work Phone: cBC Auto Differentialon [id number] (Bld) [#/Vol]0.10 10*3/[facility], KYBasophils/100 WBC (Bld)1 %0 - 2 %[facility], KSDifferential TypeYESMUniversity Hospitals Geneva [facility], KYEosinophils (Bld) [#/Vol] 0.10 10*3/[facility], KYEosinophils/100 WBC (Bld)1 %0 - 5 %[facility], KYErythrocyte distribution width (RBC) [Ratio]16.3 %High12.1 - 15.2 %[facility], KYHematocrit (Bld) [Volume fraction]36.5 %36 - 46 %[facility], KYHemoglobin (Bld) [Mass/Vol]12.5 g/dL12 - 16 g/dLKettering Health, [place] Interpretation and review of laboratory resultsAbnormalK[facility]tering Health, [place] Lymphocytes (Bld) [#/Vol]1.90 10*3/[facility], KYLymphocytes/100 WBC (Bld)25 %15 - 40 %[facility], KYMCH (RBC) [Entitic mass]28.8 pg26 - 34 pg [facility], KYMCHC (RBC) [Mass/Vol]34.3 g/dL31 - 37 g/dLK[facility]tering Health, KYMCV (RBC) [Entitic vol]84.0 fL80 - 100 fLKettering Health, KYMonocytes (Bld) [#/Vol]0.40 10*3/[facility], KYMonocytes/100 WBC (Bld)5 %4 - 8 %[facility], KYPlatelet mean volume (Bld) [Entitic vol]NOT REPORTED6 - 12 fLKettering Health, KYPlatelets (Bld) [#/Vol]167 10*3/[facility], KYPlatelets (Bld) [#/Vol]NOT REPORTEDMercy Health- [place], [...] KYComprehensive Metabolic Panel w/ Reflex to MGon 35-40-4980Ihnqucz [Mass/Vol]4.4 g/dL3.5 - 5.2 g/dLMercy Health- [place], KYAlbumin/Globulin [Mass ratio]NOT REPORTEDMercy Health- [place], KYALP [Catalytic activity/Vol]117 U/LHigh35 - 104 U/LMercy Health- [place], KYALT [Catalytic activity/Vol]41 U/LHigh5 - 33 U/LMercy Health- [place], KYAnion gap [Moles/Vol]10 mmol/L9 - 17 mmol/LMercy Health- [place], KYAST [Catalytic activity/Vol]39 U/LHigh<32[facility]- [place], KYBilirubin Ql (U)0.52 mg/dL0.3 - 1.2 mg/dLMercy Health- [place], KYBun/Cre Dultj79Zppmv Health- [place], KYCalcium [Mass/Vol]9.0 mg/dL8.6 - 10.4 mg/dLMercy Health- [place], KYChloride [Moles/Vol]101 mmol/L98 - 107 mmol/LMercy Health- [place], KYCO2 [Moles/Vol]26 mmol/L20 - 31 mmol/L [facility]- [place], KYCreatinine [Mass/Vol]1.32 mg/dLHigh0.5 - 0.9 mg/dLMercy Health- [place], KYGFR Yfeidtuu22 mL/minLow>60[facility]- [place], KYGFR Non- Ibgydbuj15 mL/minLow>60[facility]- [place], KYGFR/1.73 sq M predicted among non-blacks MDRD (S/P/Bld) [Vol rate/Area][facility]- [place], KYComment on above: Average GFR for 40-49 years old: 99 mL/min/1.73sq m Chronic Kidney Disease: <60 mL/min/1.73sq m Kidney failure: <15 mL/min/1.73sq m eGFR calculated using average adult body mass. Additional eGFR calculator available at: http://www.[employer]/multiple_crcl_2012.htm GFR/1.73 sq M predicted among non-blacks MDRD (S/P/Bld) [Vol rate/Area]NOT REPORTEDMercy Health- [place], KYGlucose [Mass/Vol]173 mg/bIYdqc44 - 99 mg/dLMercy Health- [place], KYInterpretation and review of laboratory resultsAbnormalMercy Health- [place], KYPotassium [Moles/Vol]3.9 mmol/L3.7 - 5.3 mmol/LMercy Health- [place], KYProtein [Mass/Vol]7.3 g/dL6.4 - 8.3 g/dLMercy Health- [place], KYSodium [Moles/Vol] 137 mmol/L135 - 144 mmol/LMercy Health- [place], KYUrea nitrogen [Mass/Vol]15 mg/dL6 - 20 mg/dLMercy Health- [place], KYOtheron 04-84-0535Bpblkmdg granulocytes (Bld) [#/Vol]NOT REPORTEDMercy Health- [place], KYSedimentation Rateon 62-10-4434Jhn Rate15 mm0 - 20 mmMercy Health- [place], KYUrinalysis, reflex to microscopicon 09-16-2020 Bilirubin UrineNegativeNEGATIVEMercy Health- [place], KYColor, UAYELLOWYELLOWMercy Health- [place], KYGlucose, UrNegativeNEGATIVEMer[facility]- [place], KYInterpretation and review of laboratory resultsAbnormalMercy Health- [place], KYKetones Ql (U)Negative NEGATIVEMercy Health- [place], KYLeukocyte esterase Test strip Ql (U)NegativeNEGATIVE [facility]- [place], KYNitrite, UrineNegativeNEGATIVEMercy Health- [place], KYpH, UA5.0 [facility], KSProtein (U) [Mass/Vol]TRACEAbnormalNEGATIVEElyria Memorial Hospital- [place], KYSpecific [place], UA1.025[facility]- [place], KYTurbidity UACLEARCLEARElyria Memorial Hospital- [place], KYUrinalysis CommentsK[facility] Health, KYUrine HgbNegativeNEGATIVE [facility], KSUrobilinogen, UrineNormalNormSelect [facility], KSC- Reactive Proteinon [id number] [Mass/Vol]6 mg/LHigh0 - 5 mg/LMUniversity [facility]als Geneva [facility], KSInterpretation and review of laboratory resultsAbZanesville City Hospital, [place] CBC With Auto Differentialon [id number] (Bld) [#/Vol]0.00 10*3/[facility], KYBasophils/100 WBC (Bld)1 %0 - 2 %[facility], KSDifferential TypeYESMUniversity Hospitals [facility], KSEosinophils (Bld) [#/Vol]0.10 10*3/[facility], KSEosinophils/100 WBC (Bld)1 %0 - 5 %[facility], KSErythrocyte distribution width (RBC) [Ratio]16.2 %High12.1 - 15.2 %[facility], [place] Hematocrit (Bld) [Volume fraction]35.4 %Low36 - 46 %[place], [place] Hemoglobin (Bld) [Mass/Vol]12.2 g/dL12 - 16 g/dLK[facility]tering Health, [place] Interpretation and review of laboratory resultsAbnoGreene Memorial Hospital, [place] Lymphocytes (Bld) [#/Vol]1.60 10*3/[facility], KSLymphocytes/100 WBC (Bld)28 %15 - 40 %[facility], KSMCH (RBC) [Entitic mass]29.1 pg26 - 34 pg [facility], KSMCHC (RBC) [Mass/Vol]34.5 g/dL31 - 37 g/dLK[facility] Health, KSMCV (RBC) [Entitic vol]84.2 fL80 - 100 fLFairfield Medical Center Health- [place], KYMonocytes (Bld) [#/Vol]0.40 10*3/[facility]- [place], KYMonocytes/100 WBC (Bld)6 %4 - 8 %[facility]- [place], KYPlatelet mean volume (Bld) [Entitic vol]NOT REPORTED6 - 12 fLFairfield Medical Center Health- [place], KYPlatelets (Bld) [#/Vol]160 10*3/[facility]- [place], KYPlatelets (Bld) [#/Vol]NOT REPORTEDElyria [facility] Hospital- [place], KYRBC (Bld) [#/Vol]4.20 10*6/uL4 - 5.2 m/[facility]- [place], KYRBC morphology finding Nom (Bld)NOT REPORTEDElyria [facility] Hospital- [place], KYSegmented neutrophils/100 WBC (Bld)64 %47 - 75 %[facility]- [place], KYSegs Absolute3.80[facility]- [place], KYWBC (Bld) [#/Vol]5.8 10*3/[facility]- [place], KYWBC (Bld) [#/Vol]NOT REPORTEDper 100 WBCFairfield Medical Center Health- [place], KYWBC MorphologyNOT REPORTEDElyria [facility] Hospital- [place], KYOtheron [id number] granulocytes (Bld) [#/Vol]NOT REPORTED0 %[facility]- [place], KYSedimentation Rate on 20-85-9561Lkt Rate10 mm0 - 20 mmFairfield Medical Center Health- [place], KYC-Reactive Proteinon [id number] [Mass/Vol]2 mg/L0 - 5 mg/LMVeterans Health Administration- [place], KYCBC With Auto Differentialon 71-64-5151Mhtoqtygt (Bld) [#/Vol]0.10 10*3/[facility]- [place], [place] Basophils/100 WBC (Bld)1 %0 - 2 %[facility]- [place], KYDifferential TypeYESMVeterans Health Administration- [place], KYEosinophils (Bld) [#/Vol]0.10 10*3/[facility]- [place], [place] Eosinophils/100 WBC (Bld)1 %0 - 5 %[facility]- [place], KYErythrocyte distribution width (RBC) [Ratio]16.8 %High12.1 - 15.2 %[facility]- [place], TIFFHematocrit (Bld) [Volume fraction]40.0 %36 - 46 %[facility]- [place], KYHemoglobin (Bld) [Mass/Vol] 13.5 g/dL12 - 16 g/dLElyria Memorial Hospital- [place], KYInterpretation and review of laboratory resultsAbnormalElyria [facility] Hospital- [place], KYLymphocytes (Bld) [#/Vol]1.70 10*3/[facility]- [place], KYLymphocytes/100 WBC (Bld)17 %15 - 40 %[facility]- [place], TIFFMCH (RBC) [Entitic mass]29.1 pg26 - 34 pgElyria Memorial Hospital- [place], KYMCHC (RBC) [Mass/Vol] 33.8 g/dL31 - 37 g/dLElyria Memorial Hospital- [place], KYMCV (RBC) [Entitic vol]86.0 fL80 - 100 fLElyria Memorial Hospital- [place], KYMonocytes (Bld) [#/Vol]0.50 10*3/[facility]- [place], [place] Monocytes/100 WBC (Bld)5 %4 - 8 %[facility]- [place], TIFFPlatelet mean volume (Bld) [Entitic vol]NOT REPORTED6 - 12 fLElyria Memorial Hospital- [place], KYPlatelets (Bld) [#/Vol]NOT REPORTEDElyria [facility] Hospital- [place], KYPlatelets (Bld) [#/Vol]208 10*3/[facility]- [place], KYRBC (Bld) [#/Vol]4.65 10*6/uL4 - 5.2 m/[facility]- [place], KYRBC morphology finding Nom (Bld)NOT REPORTEDElyria [facility] Hospital- [place], KYSegmented neutrophils/100 WBC (Bld)76 %High47 - 75 %[facility]- [place], KYSegs Absolute7.70HighFairfield Medical Center Health- [place], KYWBC (Bld) [#/Vol]NOT REPORTEDper 100 WBCFairfield Medical Center Health- [place], KYWBC (Bld) [#/Vol] 10.0 10*3/[facility]- [place], KYWBC MorphologyNOT REPORTEDMer[facility] Health- [place], [place] Otheron 24-26-4190Qsikvddn granulocytes (Bld) [#/Vol]NOT REPORTED0 %[facility]- [place], KYSedimentation Rateon [id number] Rate6 mm0 - 20 mmMercy Health- [place], KYProtein / creatinine ratio, urineon 05-21-6656Sdpvzrudly, Ur101.2 mg/dL28 - 217 mg/dLMercy Health- [place], KYProtein (U) [Mass/Vol]8 mg/dLMercy Health- [place], [place] Comment on above:No normal range established.Urine Total Protein Creatinine Ratio0.08[facility]- [place], KYUrinalysison 19-64-9504Wsuwmqyyx UrineNegative NEGATIVEMercy Health- [place], KYColor, UAYELLOWYELLOWMercy Health- [place], KYGlucose, Ur 100 mg/dLAbnormalNEGATIVEMercy Health- [place], KYInterpretation and review of laboratory resultsAbnormalMercy Health- [place], KYKetones Ql (U)NegativeNEGATIVE [facility]- [place], KYLeukocyte esterase Test strip Ql (U)NegativeNEGATIVEMercy Health- [place], KYNitrite, UrineNegativeNEGATIVEM[facility]- [place], KYpH, UA6.0[facility]- [place], KYProtein (U) [Mass/Vol]NegativeNEGATIVEMercy Health- [place], KYSpecific [place], UA1.020[facility]- [place], KYTurbidity UACLEARCLEARMercy Health- [place], [place] Urinalysis CommentsMercy Health- [place], KYUrine HgbNegativeNEGATIVEMercy [facility]- [place], KYUrobilinogen, UrineNormalNormalMercy Health- [place], KYComprehensive Metabolic Panelon [id number] [Mass/Vol]4.4 g/dL3.5 - 5.2 g/dLMercy Health- [place], [place] Albumin/Globulin [Mass ratio]NOT REPORTEDMercy Health- [place], KYALP [Catalytic activity/Vol]87 U/L35 - 104 U/LMercy Health- [place], KYALT [Catalytic activity/Vol] 21 U/L5 - 33 U/LMercy Health- [place], KYAnion gap [Moles/Vol]10 mmol/L9 - 17 mmol/L [facility]- [place], KYAST [Catalytic activity/Vol]22 U/L<32[facility]- [place], [place] Bilirubin Ql (U)0.32 mg/dL0.3 - 1.2 mg/dLElyria Memorial Hospital- [place], KYBun/Cre Ratio18 [facility], KYCalcium [Mass/Vol]10.1 mg/dL8.6 - 10.4 mg/dLK[facility], KYChloride [Moles/Vol]104 mmol/L98 - 107 mmol/LMOhio [facility] Surgical [facility] [place], KYCO2 [Moles/Vol]26 mmol/L20 - 31 mmol/LMVeterans Health Administration- [place], KYCreatinine [Mass/Vol]1.37 mg/dLHigh0.5 - 0.9 mg/dLK[facility]tering Health, KYGFR Mxpmhkip48 mL/minLow>60 [facility] [place], KYGFR Non- Namoslzo77 mL/minLow>60[facility], [place] GFR/1.73 sq M predicted among non-blacks MDRD (S/P/Bld) [Vol rate/Area]NOT REPORTEDKettering Health, KYGFR/1.73 sq M predicted among non-blacks MDRD (S/P/Bld) [Vol rate/Area][facility], KYComment on above:Average GFR for 40-49 years old: 99 mL/min/1.73sq m Chronic Kidney Disease: <60 mL/min/1.73sq m Kidney failure: <15 mL/min/1.73sq m eGFR calculated using average adult body mass. Additional eGFR calculator available at: http://www.MetaLINCS.[facility]/multiple_crcl_2012.htm Glucose [Mass/Vol]160 mg/mKZshv94 - 99 mg/dLK[facility]tering Health, KYInterpretation and review of laboratory resultsAbnormalK[facility] Health, KYPotassium [Moles/Vol]4.6 mmol/L3.7 - 5.3 mmol/LMVeterans Health Administration- [place], KYProtein [Mass/Vol]7.4 g/dL6.4 - 8.3 g/dLK[facility]tering Health, KYSodium [Moles/Vol]140 mmol/L135 - 144 mmol/LMercy Health- [place], KYUrea nitrogen [Mass/Vol]24 mg/dLHigh6 - 20 mg/dLOakland, KYHemoglobin A1Con 29-16-4396Vjdxuoa [Mass/Vol]123 mg/dLOakland, KYComment on above:The ADA and AACC recommend providing the estimated average glucose result to permit better patient understanding of their HBA1c result. HbA1c (Bld) [Mass fraction]5.9 %4 - 6 %[place], KYLDL Cholesterol, Directon 86-66-3706Jywfsrprzli in LDL [Mass/Vol]58 mg/dL<100[place], [place] Lipid Panelon 65-41-4251Ksohwkyiekm [Mass/Vol]194 mg/dL<200[place], [place] Comment on above: Cholesterol Guidelines: <200 Desirable 200-240 Borderline >240 Undesirable Cholesterol in HDL [Mass/Vol]27 mg/dLLow>40[place], KYComment on above: HDL Guidelines: <40 Undesirable 40-59 Borderline >59 Desirable Cholesterol in LDL [Mass/Vol]0 - 130 mg/dLOakland, KYComment on above: Calculation not valid for Triglyceride value greater than 400 mg/dL. Direct LDL reflexed LDL Guidelines: <100 Desirable 100-129 Near to/above Desirable 130-159 Borderline >159 Undesirable Direct (measured) LDL and calculated LDL are not interchangeable tests. Cholesterol in VLDL [Mass/Vol]NOT REPORTED1 - 30 mg/dLOakland, [place] Cholesterol.total/Cholesterol in HDL [Mass ratio]7.2 {ratio}High<5[place], KYInterpretation and review of laboratory resultsAbnormalO[place], KYTriglyceride [Mass/Vol]1112 mg/dLHigh<150[place], KYComment on above: Triglyceride Guidelines: <150 Desirable 150-199 Borderline 200-499 High >499 Very high Based on AHA Guidelines for fasting triglyceride, July 2012. Patient Fasting?on 53-17-7241Bbpbjlu Fasting?YESO[place], KYVitamin D 25 Hydroxyon 92-44-5227Arp D, 25-Dlusegc25.2 ng/mL30 - 100 ng/mLO[place]land, KYComment on above: Reference Range: Vitamin D status Range Deficiency <20 ng/mL Mild Deficiency 20-30 ng/mL Sufficiency 30-100 ng/mL Toxicity >100 ng/mL C-Reactive Proteinon [id number] [Mass/Vol]6.2 mg/LHigh0 - 5 mg/[facility] [employer] [place], KYInterpretation and review of laboratory resultsAbnormalKettering Health, KYHemoglobin M6MGdvgpvz By: Janel Allen on 36-32-7270Rkshcez [Mass/Vol] 108 mg/dLBluffton HospitalMovinary Phone: comment on above:The ADA and AACC recommend providing the estimated average glucose result to permit better patient understanding of their HBA1c result. HbA1c (Bld) [Mass fraction]5.4 %4.8 - 5.9 %[employer] Phone: Homocysteine, SerumOrdered By: Janel Allen on 09-64-8043Fqosucrsuwnj0 umol/L<15.0Bluffton HospitalMovinary Phone: TSH without ReflexOrdered By: Janel Allen on 65-25-2005YDD Qn1.03 m[IU]/[employer] Phone: Vitamin B12 & FolateOrdered By: Janel Dignaharinder on 88-09-5036Bfwbmxcbs (Vitamin B12) [Mass/Vol]292 pg/mL232 - 1245 pg/mLBluffton HospitalMovinary Phone: Folate13.8 ng/mL>4.8Bluffton HospitalMovinary Phone: XR CERVICAL SPINE (4-5 VIEWS)on 55-07-4039Yssu degenerative changes cervical spine not unusual for age. Refer to the MRI [facility] 02/03/2019 with some of the findings discussed above. [employer], KYEXAM: XR CERVICAL SPINE (4-5 VIEWS) HISTORY: Reason for exam:->history MRSA discitis of thoracicregion. New tingling and numbness of fingers COMPARISON: MRI cervical spine [facility] 02/03/2019, cervical spine series 04/03/2010. The [...] is normal. Swimmer's lateral viewshows no additional abnormality.[facility], Dannielle, Rick Incoming Radiant Results From [employer] - 07/29/2019 10:05 AM EDT EXAM: XR CERVICAL SPINE (4-5 VIEWS) HISTORY: Reason for exam:->history MRSA discitis of thoracic region. New tingling and numbness of fingers COMPARISON: MRI cervical spine [facility] 02/03/2019, cervical spine series 04/03/2010. The [...] unusual for age. Refer to the [facility] 02/03/2019 with some of the findings discussed above. [facility], [facility]-Reactive ProteinOrdered By: Azalea Knight on 07-28-2019 CRP [Mass/Vol]6.4 mg/LHigh0 - 5 mg/LMUniversity Hospitals Geneva [facility], KSInterpretation and review of laboratory resultsAbnormSelect Medical Specialty Hospital [facility], KSCBC With Auto DifferentialOrdered By: Azalea Knight on 24-43-7910Kzazgwls Eos #0.10[facility], KYAbsolute Immature GranulocyteNOT REPORTEDK[facility]tering Health, [place] Absolute Lymph #2.10[facility], KYAbsolute [place] #0.50[facility], [place] Basophils (Bld) [#/Vol]0.00 10*3/uLMercy Health- [place], KYBasophils/100 WBC (Bld)1 %0 - 2 %[facility]- [place], KYDifferential TypeYESMercy Health- [place], [place] Eosinophils/100 WBC (Bld)1 %0 - 5 %[facility]- [place], KYErythrocyte distribution width (RBC) [Ratio]14.5 %12.1 - 15.2 %[facility]- [place], KYHematocrit (Bld) [Volume fraction]38.1 %36 - 46 %[facility]- [place], KYHemoglobin (Bld) [Mass/Vol] 12.9 g/dL12 - 16 g/dLFairfield Medical Center Health- [place], KYImmature GranulocytesNOT REPORTED0 % [facility]- [place], KYLymphocytes/100 WBC (Bld)34 %15 - 40 %[facility]- [place], [place] MCH (RBC) [Entitic mass]29.5 pg26 - 34 pgFairfield Medical Center Health- [place], KYMCHC (RBC) [Mass/Vol]33.9 g/dL31 - 37 g/dLFairfield Medical Center Health- [place], KYMCV (RBC) [Entitic vol]87.1 fL80 - 100 fLFairfield Medical Center Health- [place], KYMonocytes/100 WBC (Bld)8 %4 - 8 %[facility]- [place], KYMPVNOT REPORTED6 - 12 fLFairfield Medical Center Health- [place], KYNRBC AutomatedNOT REPORTEDper 100 WBCFairfield Medical Center Health- [place], KYPlatelet EstimateNOT REPORTEDFairfield Medical Center [facility]- [place], [place] Platelets (Bld) [#/Vol]222 10*3/uLFairfield Medical Center Health- [place], KYRBC (Bld) [#/Vol]4.38 10*6/uL4 - 5.2 m/[facility]- [place], KYRBC morphology finding Nom (Bld)NOT REPORTEDFairfield Medical Center [facility]- [place], KYSegmented neutrophils/100 WBC (Bld)56 %47 - 75 % [facility]- [place], KYSegs Absolute3.50[facility]- [place], KYWBC (Bld) [#/Vol]6.2 10*3/uLFairfield Medical Center Health- [place], KYWBC MorphologyNOT REPORTEDFairfield Medical Center [facility]- [place], [place] Sedimentation RateOrdered By: Azalea Knight on 57-66-7704Yzz Rate19 mm0 - 30 mmKettering Health, KYC-Reactive Proteinon 27-96-9214MUG [Mass/Vol]7.3 mg/LHigh0 - 5 mg/LMUniversity Hospitals Geneva [facility] Center, KYInterpretation and review of laboratory results AbnormalKettering Health, KYAlbuminon 70-61-7326Zbypsws [Mass/Vol]4.3 g/dL3.5 - 5.2 g/dLKettering Health, KYBUN & Creatinineon 59-33-5832Jtviohlyhn [Mass/Vol] 1.27 mg/dLHigh0.5 - 0.9 mg/dLKettering Health, KYGFR Guwgygzb39 mL/min Low>60[facility], KYGFR Non- Jaxzemfq79 mL/minLow>60[facility], KYGFR/1.73 sq M predicted among non-blacks MDRD (S/P/Bld) [Vol rate/Area]NOT REPORTEDKettering Health, KYGFR/1.73 sq M predicted among non-blacks MDRD (S/P/Bld) [Vol rate/Area][facility], KYComment on above:Average GFR for 40-49 years old: 99 mL/min/1.73sq m Chronic Kidney Disease: <60 mL/min/1.73sq m Kidney failure: <15 mL/min/1.73sq m eGFR calculated using average adult body mass. Additional eGFR calculator available at: http://www.MetaLINCS.[facility]/multiple_crcl_2012.htm Interpretation and review of laboratory resultsAbnormalKettering Health, KYUrea nitrogen [Mass/Vol]18 mg/dL6 - 20 mg/dLKettering Health, KYCalciumon 06-17-2019 Calcium [Mass/Vol]10.4 mg/dL8.6 - 10.4 mg/dLKettering Health, KYElectrolyte Panelon 30-46-5408Gqlyj gap [Moles/Vol]13 mmol/L9 - 17 mmol/LMUniversity [facility]als Geneva [facility], KYChloride [Moles/Vol]103 mmol/L98 - 107 mmol/LMOhio [facility] Surgical Hospital [place], KYCO2 [Moles/Vol]24 mmol/L20 - 31 mmol/LMercy Health- [place], KYPotassium [Moles/Vol]3.8 mmol/L3.7 - 5.3 mmol/LMercy Health- [place], KYSodium [Moles/Vol]140 mmol/L135 - 144 mmol/LMercy Health- [place], KYHemoglobin and Hematocrit, Bloodon 06-17-2019 Hematocrit (Bld) [Volume fraction]35.4 %Low36 - 46 %[facility]- [place], [place] Hemoglobin (Bld) [Mass/Vol]12.1 g/dL12 - 16 g/dLMercy Health- [place], [place] Interpretation and review of laboratory resultsAbnormformerly [facility]- [place], [place] Magnesiumon 07-22-4236Eiyjinccb [Mass/Vol]2.3 mg/dL1.6 - 2.6 mg/dLMercy Health- [place], KYMicroscopic Urinalysison 74-37-9704Oyysvgzab, UANOT REPORTEDNoneMercy Health- [place], KYBacteria, UA1+AbnormalNoneMercy Health- [place], KYCasts UANOT REPORTED /LPFMercy Health- [place], KYCrystals UANOT REPORTEDNone /HPFMercy Health- [place], [place] Epithelial Cells UA2 TO 5/HPFMercy Health- [place], KYInterpretation and review of laboratory resultsAbnormHonorHealth Sonor[facility] Crossing [facility] Centercy [facility]- [place], KYMucus, UANOT REPORTEDNoneMercy Health- [place], KYOther Observations UANOT REPORTEDNOT REQ.[facility]- [place], KYRBC (U) [#/Vol]NOT REPORTEDMercy Health- [place], KYRenal Epithelial, UrineNOT REPORTED0 /HPFMercy Health- [place], KYTrichomonas, UANOT REPORTEDNoneMercy Health- [place], KYWBC, UA0 TO 20 /HPFMercy Health- [place], KYYeast, UANOT REPORTEDNoneMercy Health- [place], [place]- [facility]- [place], KYPhosphoruson 40-28-9526Xnzktqina [Mass/Vol]3.0 mg/dL2.6 - 4.5 mg/dLMercy Health- [place], KYProtein / creatinine ratio, urineon 06-17-2019 Creatinine, Ur228.2 mg/lWLmid96 - 217 mg/dLBluffton Hospitalcy Health- [place], KYInterpretation and review of laboratory resultsAbnormalBluffton Hospitalcy Health- [place], KYProtein (U) [Mass/Vol]18 mg/dLElyria Memorial Hospital- [place], KYComment on above:No normal range established.Urine Total Protein Creatinine Ratio0.08MerSt. Michaels [facility]- [place], [place] Sedimentation Rateon 17-09-8043Rkh Rate24 mm0 - 30 mmMerSt. Michaels Medical Center- [place], [place] Urinalysison 91-66-3915Kpwajfurb UrineNegativeNEGATIVEMer Health- [place], KYColor, UAYELLOWYELLOWMer Health- [place], KYGlucose, UrNegativeNEGATIVEMer Health- [place], KYInterpretation and review of laboratory resultsAbnormalFairfield Medical Center [facility]- [place], [place] Ketones Ql (U)NegativeNEGATIVEMer Health- [place], KYLeukocyte esterase Test strip Ql (U)NegativeNEGATIVEMercy Health- [place], KYNitrite, UrineNegativeNEGATIVEMer Health- [place], KYpH, UA6.0MerSt. Michaels [facility]- [place], KYProtein (U) [Mass/Vol]TRACEAbnormal NEGATIVEFairfield Medical Center Health- [place], KYSpecific [place], UA1.025MerSt. Michaels [facility]- [place], [place] Turbidity UAHAZYAbnormalCLEARMercy Health- [place], KYUrinalysis CommentsMerSt. Michaels Medical Center- [place], KYUrine HgbNegativeNEGATIVEMer Health- [place], KYUrobilinogen, Urine NormalNormalElyria Memorial Hospital- [place], KYMR CERVICAL SPINE WITHOUT CONTRASTon [...] or cord edema. /cdr Workstation ID: [id number] [facility] HospitalEXAMINATION: MR CERVICAL SPINE WITHOUT CONTRAST HISTORY: ORDERING [...] left-sided neural foraminal stenosis. [facility] HospitalInterface, Rad In Firsthealthq - 02/03/2019 11:02 AM EDT EXAMINATION: MR [...] or cord edema. /[facility] Workstation ID: [id number] CERVICAL SPINE WITHOUT CONTRASTEXAMINATION: [...] MCCRAY on ThuFebruary 03, 2019 10:59:35 AM EDTGreene Memorial HospitalComment on above:Order Comment: Reason for exam?:neck pain Injury/Trauma or Illness?:Illness/Other How long have you had these symptoms (acute/chronic)?:Chronic Type of Exam?:Initial Additional signs and symptoms?:neck pain, chronic hx of multiple old injuries Cult,Alana [id number],MycobacteriaSpecimen Description .TISSUE EPIDURAL TISSUE Special Requests NOT REPORTED Direct Exam NO ACID FAST BACILLI SEEN (DIRECT SMEAR) Culture NO GROWTH 48 DAYS Report Status FINAL 10/11/2018[facility] NorthComment on above:Performed By: #### TROPI #### [employer] [address] [place] [address] Cult,MycobacteriaSpecimen Description .SPINE .TISSUE T4 LAMINA Special Requests NOT REPORTED Direct Exam NO ACID FAST BACILLI SEEN (DIRECT SMEAR) Culture NO GROWTH 48 DAYS Report Status FINAL 10/11/2018[facility] NorthComment on above:Performed By: #### LEATHAB #### [facility] [address] [place] [address] Cult,Funguson 94-54-9915Rxvy,FungusSpecimen Description .TISSUE EPIDURAL TISSUE Special Requests NOT REPORTED Culture NO GROWTH 34 DAYS Report Status FINAL 09/27/2018[facility] NorthComment on above:Performed By: #### TERRYWB #### [facility] [address] [place] [address] Cult,FungusSpecimen Description .SPINE .TISSUE T4 LAMINA Special Requests NOT REPORTED Culture NO GROWTH 34 DAYS Report Status FINAL 09/27/2018[facility] NorthComment on above:Performed By: #### LEATHAB #### [employer] [address] [place], [place] [address] BUNon 77-78-6113Mvco nitrogen mass conc20 mg/dL22 Garcia StreetComment on above:Performed By: #### [id number] ####OIVDIO EwjLjlv[address] [place], [place] [address]Bjbmjwvbdtzp 24-34-1733Qfzbbfjbyy mass conc1.3 mg/dLHigh0.5-1.1SEncompass Health Rehabilitation HospitalComment on above: Performed By: #### [id number] ####OVIDIO Gdgwmqbm9920 [place] [address] eGFRon 91-80-2797pOTW AA54 mL/min/1.[address] [facility] Comment on above:Order Comment: Order added by Discern Expert.Performed By: #### [id number] ####OVIDIO Rpccgeyx3038 [place], [place] [address]DCC/1.73 sq M predicted among non-blacks MDRD vol rate/area (S/P/Bld)45 mL/min/1.73 b9CxphpeNorthwest Health Emergency DepartmentComment on above:Order Comment: Order added by Discern Expert.Performed By: #### [id number] ####OVIDIO Xneuyemr7857 [place], [place] [address]Qlho Diffon 02-07-6381Jwpknxpga Auto #/vol (Bld)0.0 E3/mcLNormal0.0-0.2SLourdes Counseling Center SystemComment on above:Order Comment: Order Added by Discern Expert.Performed By: #### [id number] ####OVIDIO [address] [place], [place] [address]Ptrdvwbau/100 WBC Auto (Bld)1.1 % Normal0.0-2.0[facility] SystemComment on above:Order Comment: Order Added by Discern Expert.Performed By: #### [id number] ####OVIDIO AvalosTvhQwss3183 [place], [place] [address]Xwu Absolute0.0 E3/mcLNormal0.0-0.7[facility]health SystemComment on above:Order Comment: Order Added by Discern Expert.Performed By: #### [id number] ####OVIDIO TdsCxbt9179 [place], [place] [address]Egvnpbwjrmq/100 WBC Auto (Bld)0.3 %Normal0.0-11.0[facility] SystemComment on above:Order Comment: Order Added by Discern Expert.Performed By: #### [id number] ####OVIDIO AvalosPcxUgzn7348 [place], [place] [address]Kagcalfnbub Auto #/vol (Bld)1.2 E3/mcLNormal1.2-3.4SLourdes Counseling Center SystemComment on above:Order Comment: Order Added by Discern Expert.Performed By: #### [id number] ####OVIDIO AvalosAwkVdwm7825 [place], [place] [address]Irvbmyqhxtc/100 WBC Auto (Bld)30.6 %Yildnr96.0-55.0[facility] SystemComment on above:Order Comment: Order Added by Discern Expert.Performed By: #### [id number] ####OVIDIO AvalosQqnIyvx8354 [place], [place] [address]Nenu Absolute0.4 E3/mcLNormal0.0-0.7 [facility] SystemComment on above:Order Comment: Order Added by Discern Expert.Performed By: #### [id number] ####OVIDIO [address] [place], [place] [address]Gyaqlbzye/100 WBC Auto (Bld)10.2 %High0.0-10.0[facility] For WomenComment on above:Order Comment: Order Added by Discern Expert.Performed By: #### [id number] ####OVIDIO [address] [place], [place] [address]Bgcvqf Absolute2.3 E3/mcLNormal1.4-6.5SEncompass Health Rehabilitation Hospital Comment on above:Order Comment: Order Added by Discern Expert.Performed By: #### [id number] ####OVIDIO [address] [place], [place] [address]Oamgxh Auto57.8 % Jkjwqd68.0-75.0[facility] For WomenComment on above:Order Comment: Order Added by Discern Expert.Performed By: #### [id number] ####OVIDIO [address] [place], [place] [address]VNH w/ Auto Diffon 28-77-0253Wlunralpdah distribution width Auto Ratio (RBC)19.9 %High11.5-14.5SEncompass Health Rehabilitation HospitalComment on above:Performed By: #### [id number] ####OVIDIO [address] [place], [place] [address]Kruyrbnibx Auto Volume Fraction (Bld)26.5 %Low36.0-48.0 [facility] For WomenComment on above:Performed By: #### [id number] ####OVIDIO [address] [place], [place] [address]Ivjepmdezr mass conc (Bld)8.7 g/dLLow12.0-16.0[facility] For WomenComment on above:Performed By: #### [id number] ####OVIDIO AvalosUfzFpur8186 [place], [place] [address]GXL Auto Entitic mass (RBC)29.6 isOdutme91.0-31.0[facility] For WomenComment on above:Performed By: #### [id number] ####OVIDIO [address] [place], [place] [address]YIJI Auto mass conc (RBC)32.9 g/dLLow33.0-37.0[facility] SystemComment on above:Performed By: #### [id number] ####OVIDIO [address] [place] [address]MCV Auto Entitic volume (RBC)89.8 eXFxfcwh86.0-100.0 [facility] For WomenComment on above:Performed By: #### [id number] ####OVIDIO [address] [place], [place] [address]Platelet mean volume Auto Entitic volume (Bld)10.5 fLNormal7.4-11.0[facility] SystemComment on above:Performed By: #### [id number] ####OVIDIO [address] [place], [place] [address]Platelets Auto #/vol (Bld)117 E3/ooDOme370-373TyxnkjhbpParkhill The Clinic For WomenComment on above:Performed By: #### [id number] ####OVIDIO [address] [place], [place] [address]RBC Auto #/vol (Bld)2.95 E6/mcLLow3.90-5.40SLourdes Counseling Center SystemComment on above:Performed By: #### [id number] ####OVIDIO [address] [place], [place] [address]WBC Auto #/vol (Bld)4.0 E3/mcLNormal 3.6-11.0[facility] For WomenComment on above:Performed By: #### [id number] ####OVIDIO [address] [place], [place] [address]CRPon 40-81-8370QBG mass conc0.83 mg/dLNormal0.00-1.00[facility] SystemComment on above:Performed By: #### [id number] ####OVIDIO AvalosItcFvbr[address]85 [place], [place] [address]Morphon 89-23-5419Hywkfcgkckmi Auto Ql (Bld)1+NormalParkhill The Clinic For WomenComment on above:Order Comment: Order Added by Discern Expert. Performed By: #### [id number] ####OVIDIO [address] [place] [address] Hypochromasia1+[facility] HospitalComment on above:Order Comment: Order Added by Discern Expert.Performed By: #### [id number] ####OVIDIO AvalosRjfLcdq[address] [place], [place] [address]JJD morphology finding Nom (Bld)SEE MORPHOLOGYMercy Orthopedic HospitalComment on above:Order Comment: Order Added by Discern Expert.Performed By: #### [id number] ####OVIDIO AvalosEkzOing[address] [place], [place] [address]Cit Rate Automatedon 28-64-9886Jqv Rate Automated 15 mm/hrMercy Orthopedic HospitalComment on above:Result Comment: AGE-SPECIFIC REFERENCE RANGES FOR SEDIMENTATION RATE AUTOMATED REFERENCE RANGE - MM/HR AGE MEN WOMEN 0-2 0-2 - PUBERTY 3-13 3-13 PUBERTY - 50 YRS 0-15 0-20 > 50 YRS0-20 0-30Performed By: #### [id number] ####OVIDIO Hematology Manual Fdqcazjnvf38[address] [place], [place] [address]dinpe morphon 09-20-2018 Platelet morphology finding Nom (Bld)[facility] CenterComment on above:Performed By: #### [id number] ####OVIDIO AvalosEjsHdsr1813 [place], [place] [address]Vopzdkrst Auto #/vol (Bld)[facility] Medical CenterComment on above:Performed By: #### [id number] ####OVIDIO ZcyOjjg4162 [place], [place] [address]YFBEV UREA NITROGENon 13-48-4094Duxp nitrogen mass conc (Bld)19 mg/dLNormal7-20[facility] HospitalComment on above:Performed By: #### ACBC, ESR, BUN, CREAT, CREACT, FX ####Testing performed at [address] [address]D REACTIVE PROTEINon 47-40-5836JZP mass conc18.5 mg/LHigh0-10.0[facility] James HospitalComment on above:Performed By: #### ACBC, ESR, BUN, CREAT, CREACT, FX ####Testing performed at [address] [address]KJSel 09-13-2018 ABSOLUTE BAS0.1 A12PbazyuMemwxPlains Regional Medical Center on above:Performed By: #### ACBC, ESR, BUN, CREAT, CREACT, FX ####Testing performed at [place] [id number] EOS0.20 T56TcjomnWfyfyPlains Regional Medical Center on above:Performed By: #### ACBC, ESR, BUN, CREAT, CREACT, FX ####Testing performed at [place] [id number] NEUTROPHIL COUNT2.5 t35Nfxqgx5.0-7.0[facility] on above:Performed By: #### ACBC, ESR, BUN, CREAT, CREACT, FX ####Testing performed at [place] [address]Basophils/100 WBC Auto (Bld)1.4 %Normal0.0-2.0[facility] on above:Performed By: #### ACBC, ESR, BUN, CREAT, CREACT, FX ####Testing performed at [place] [address]DTYPEAUTO DIFFZuni Hospital on above:Performed By: #### ACBC, ESR, BUN, CREAT, CREACT, FX ####Testing performed at [place] [id number]/100 WBC Auto (Bld)3.5 %Normal0.0-11.0 [facility] on above:Performed By: #### ACBC, ESR, BUN, CREAT, CREACT, FX ####Testing performed at [place] [id number] Auto #/vol (Bld)1.10 R06FmfdmyPiuamZuni Hospital on above:Performed By: #### ACBC, ESR, BUN, CREAT, CREACT, FX ####Testing performed at [place] [address]Lymphocytes/100 WBC Auto (Bld)27.0 %Firgyp64.0-55.0[facility] on above:Performed By: #### ACBC, ESR, BUN, CREAT, CREACT, FX ####Testing performed at [address] [address]Imduvntzf Auto #/vol (Bld)0.4 S74OmemcgBwtfdJefferson Washington Township Hospital ([facility])Comment on above:Performed By: #### ACBC, ESR, BUN, CREAT, CREACT, FX ####Testing performed at [address] [address]Aepdijuaj/100 WBC Auto (Bld)9.4 %Normal0.0-10.0[facility] on above:Performed By: #### ACBC, ESR, BUN, CREAT, CREACT, FX ####Testing performed at [place] [id number]/100 WBC Auto (Bld) 58.7 %Txtunr52.0-75.0[facility] Hospital at Rahwayment on above:Performed By: #### ACBC, ESR, BUN, CREAT, CREACT, FX ####Testing performed at [place] [address]Erythrocyte distribution width Auto Ratio (RBC)17.6 %High11.5-14.5ASelect [facility] [place] on above:Performed By: #### ACBC, ESR, BUN, CREAT, CREACT, FX ####Testing performed at [place] [address]Hematocrit Auto Volume Fraction (Bld)26.2 %Low36.0-48.0[facility] on above:Performed By: #### ACBC, ESR, BUN, CREAT, CREACT, FX ####Testing performed at [place] [address]Hemoglobin mass conc (Bld)8.8 g/dLLow12.0-16.0[facility] on above:Performed By: #### ACBC, ESR, BUN, CREAT, CREACT, FX ####Testing performed at [place] [address]MCH Auto Entitic mass (RBC)29.3 myYrvavq95.0-35.0 [facility] on above:Performed By: #### ACBC, ESR, BUN, CREAT, CREACT, FX ####Testing performed at [place] [address]MCHC Auto mass conc (RBC)33.7 g/gJJympmb17.0-37.0[facility] on above:Performed By: #### ACBC, ESR, BUN, CREAT, CREACT, FX ####Testing performed at [place] [address]MCV Auto Entitic volume (RBC)86.9 kYSabnoz42.0-100.0[facility] on above:Performed By: #### ACBC, ESR, BUN, CREAT, CREACT, FX ####Testing performed at [place] [id number] mean volume Auto Entitic volume (Bld)10.1 fLNormal 7.4-11.0[facility] on above:Performed By: #### ACBC, ESR, BUN, CREAT, CREACT, FX ####Testing performed at [place] [id number] Auto #/vol (Bld)130 /cmmNormal 130.0-400.0[facility] on above:Performed By: #### ACBC, ESR, BUN, CREAT, CREACT, FX ####Testing performed at [place] [address]RBC Auto #/vol (Bld)3.01 /cmmLow4.0-5.4ASelect Medical [facility] [place] on above:Performed By: #### ACBC, ESR, BUN, CREAT, CREACT, FX ####Testing performed at [place] [address]WBC Auto #/vol (Bld)4.2 /cmmNormal3.6-11.0[facility] on above:Performed By: #### ACBC, ESR, BUN, CREAT, CREACT, FX ####Testing performed at [place] [address]CREATININE,SERUMon 66-31-7251Ecwmabkciq mass conc1.5 mg/dLHigh0.52-1.04 [facility] on above:Performed By: #### ACBC, ESR, BUN, CREAT, CREACT, FX ####Testing performed at [place] [address]EST. GFR, Hoeaasrb94 ml/min/1.73sq.[facility] on above:Performed By: #### ACBC, ESR, BUN, CREAT, CREACT, FX ####Testing performed at [place] [address]EST. GFR,Non Dvaayeej74 ml/min/1.73sq.[facility] on above:Performed By: #### ACBC, ESR, BUN, CREAT, CREACT, FX ####Testing performed at [place] [address]GFR/1.73 sq M predicted among non-blacks MDRD vol rate/area (S/P/Bld)Average GFR for 30-39 years old = 109.[facility] Comment on above:Result Comment: Chronic Kidney disease, GFR = <60.Kidney failure, GFR = <15.The GFR estimate is not adjusted for extreme body surface area or acute process, nor has it been validated for women or ethnic groups other than and .Performed By: #### ACBC, ESR, BUN, CREAT, CREACT, FX ####Testing performed at [address] [address]SHFis 06-26-9384JZR Velocity (Bld)49 mm/hHigh0-15 [facility] on above:Performed By: #### ACBC, ESR, BUN, CREAT, CREACT, FX ####Testing performed at [address] [address]OGC REQUESTon [id number] TOFAX TO DR HARTMAN AT [phone] AND TO [facility] AT [phone] Children's Psychiatric CenterComment on above:Performed By: #### PHY, BUN, CREAT, FX ####Testing performed at [address] [address]JPQ REQUEST on 31-19-6503NFI [id number] Memorial HospitalComcorewell health [facility] on above: Performed By: #### FX ####Testing performed at [place] [address]BLOOD UREA NITROGENon 15-96-8833Rzex nitrogen mass conc (Bld)21 mg/dLHigh7-20[facility] HospitalComment on above:Performed By: #### PHY, BUN, CREAT, FX ####Testing performed at [place] [address]CREATININE,SERUMon 27-47-3998Njhqomgitk mass conc 1.4 mg/dLHigh0.52-1.04[facility] HospitalComment on above:Performed By: #### PHY, BUN, CREAT, FX ####Testing performed at [address] [address]AHG. GFR, Rudvovai39 ml/min/1.73sq.North Country HospitalComcorewell health will[facility] on above:Performed By: #### PHY, BUN, CREAT, FX ####Testing performed at [address] [address]VKZ. GFR,Non Flgpjavf34 ml/min/1.73sq.[facility] Comment on above:Performed By: #### PHY, BUN, CREAT, FX ####Testing performed at [address] [address]UHZ/1.73 sq M predicted among non-blacks MDRD vol rate/area (S/P/Bld)Average GFR for 30-39 years old = 109.[facility] HospitalComcorewell health [facility] on above:Result Comment: Chronic Kidney disease, GFR = <60.Kidney failure, GFR = <15.The GFR estimate is not adjusted for extreme body surface area or acute process, nor has it been validated for women or ethnic groups other than and . Performed By: #### PHY, BUN, CREAT, FX ####Testing performed at [address] [address]IVX REQUESTon [id number] TO [phone] [facility] HospitalComment on above:Performed By: #### PHY, BUN, CREAT, FX ####Testing performed at [address] [address]VPQ NEW PHYSICIANon 48-65-9838IJE NEW PHYSICIAN DEVAN UPMayo Memorial HospitalComment on above:Performed By: #### PHY, BUN, CREAT, FX ####Testing performed at [address] [address]EZUby 88-68-0074Hgbn nitrogen mass conc24 mg/dLHigh6- [facility] The Clinic For WomenComment on above:Performed By: #### [id number] ####OVIDIO Qpnebocq5223 [place], [place] [address]Mfukyiwpfosc 08-27-2018 Creatinine mass conc1.6 mg/dLHigh0.5-1.1SEncompass Health Rehabilitation HospitalComment on above:Performed By: #### [id number] ####OVIDIO Vvwoqxxp1559 [place], [place] [address]hWAOjn 22-74-0366eXPA AA43 mL/min/1.73 t9MzuvqcEgrxftsgyMercy Orthopedic HospitalComment on above:Order Comment: Order added by Discern Expert.Performed By: #### [id number] ####OVIDIO AvalosJivRnav5781 [place], [place] [address]XQH/1.73 sq M predicted among non-blacks MDRD vol rate/area (S/P/Bld)36 mL/min/1.73 m2 [facility] HospitalComment on above:Order Comment: Order added by Discern Expert.Performed By: #### [id number] ####OVIDIO AvalosMmiPdma0831 [place], [place] [address]Hkas,Tissueon 57-44-0796Nfwh,TissueSpecimen Description .TISSUE EPIDURAL TISSUE Special Requests NOT [...] NOT REPORTED Trimethoprim/Sulfa <=10 SUSCEPTIBLE Vancomycin <=0.5 SUSCEPTIBLESelect Medical Specialty Hospital - Cincinnati NorthComment on above:Performed By: #### LACWB #### [employer] [address] [place] [address] Cult,TissueSpecimen Description .SPINE .TISSUE T4 LAMINA [...] NOT REPORTED Trimethoprim/Sulfa <=10 SUSCEPTIBLE Vancomycin <=0.5 SUSCEPTIBLESelect Medical Specialty Hospital - [facility] NorthComment on above:Performed By: #### LACWB #### [employer] [address] [place] [address] Basic Metabolic Profon 08-25-2018(cont.)[facility] NorthComment on above:Result Comment: Average GFR for 30-39 years old: 107 mL/min/1.73sq m Chronic Kidney Disease: <60 mL/min/1.73sq m Kidney failure: <15 mL/min/1.73sq m eGFR calculated using average adult body mass. Additional eGFR calculator available at: http://www.MetaLINCS.com/multiple_crcl_2012.htmPerformed By: #### TERRYWB #### [facility] CenterCo[facility] [address] [place] [address] Anion gap molar conc14 mmol/LNormal9-17[facility] City HospitalComment on above:Performed By: #### LACWB #### [facility] [employer] [address] [place] [address] Calcium mass conc9.1 mg/dLNormal8.6-10.4[facility] City HospitalComment on above:Performed By: #### LACWB #### [facility] [employer] [address] [place] [address] Chloride molar conc96 mmol/ADcf35-019GddwkSalem City HospitalComment on above:Performed By: #### LACWB #### [facility] [employer] [address] [place] [address] CO2 molar conc23 mmol/GChbmvr20-38CudxpSalem City Hospital Comment on above:Performed By: #### LACWB #### [facility] [employer] [address] [place] [address] Creatinine mass conc1.52 mg/dLHigh0.50-0.90[facility] City HospitalComment on above:Performed By: #### LACWB #### [facility] CenterCo[facility] [address] [place] [address] GFR, Amer46 mL/minLow>60[facility] Comment on above:Performed By: #### LACWB #### [facility] [employer] [address] [place] [address] GFR,non Amer38 mL/minLow>60[facility] Comment on above:Performed By: #### LACWB #### [facility] [employer] [address] [place] [address] Glucose mass conc95 mg/bJAtihrt59-06KpjprSharp Chula Vista Medical CenterComment on above:Performed By: #### LEATHAB #### [facility] [employer] [address] [place] [address] Potassium molar conc4.5 mmol/LNormal3.7-5.3MSharp Chula Vista Medical CenterComment on above:Performed By: #### LEATHAB #### [facility] [employer] [address] [place] [address] Sodium molar kygs521 mmol/BMjg906-621KjqptSalem City HospitalComment on above:Performed By: #### LACHELLE #### [facility] [employer] [address] [place] [address] Urea nitrogen mass conc43 mg/dLHigh6-20Salem City HospitalComment on above:Performed By: #### LACHELLE #### [facility] [employer] [address] [place] [address] 84047 BUN/CRE RatioNOT REPORTEDResearch Medical Center-Brookside Campusal9-20[facility] Comment on above:Performed By: #### LEATHAB #### [facility] [employer] [address] [place] [address] 18038 Staging:NOT REPORTEDNormalSalem City HospitalComment on above:Performed By: #### LACHELLE #### [facility] [employer] [address] [place] [address] 79228 CBC with Diffon [id number]. Basophil0.07 k/uLNormal0.00-0.20 [facility] HospitalComment on above:Performed By: #### LEATHAB #### [facility] [employer] [address] [place] [address] 71612 Abs.Imm.Granulocyte0.08 k/uLNormal0.00-0.30[facility] HospitalComment on above:Performed By: #### LACWB #### [address] [address] Abs.Neutrophil (Seg)5.77 k/uLNormal1.50-8.10[facility] HospitalComment on above:Performed By: #### LACWB #### [address] 94818 Basophils/100 WBC (Bld)1 %Normal0-2MercCor[facility]an District Hospital Comment on above:Performed By: #### TERRYWB #### [address] 39018 Eosinophils #/vol (Bld)0.12 10*3/uLNormal0.00-0.44[facility] HospitalComment on above:Performed By: #### TERRYWB #### [address] 53790 Eosinophils/100 WBC (Bld)1 %Normal1-4[facility] HospitalComment on above:Performed By: #### TERRYWB #### [address] 48616 Immature granulocytes #/vol (Bld)1 %Btra2KzjxlFountain Valley Regional Hospital and Medical CenterComment on above:Performed By: #### LACWB #### [address] 76727 Lymphocytes #/vol (Bld)1.83 10*3/uLNormal1.10-3.70[facility] HospitalComment on above:Performed By: #### LACWB #### [address] 80134 Lymphocytes/100 WBC (Bld)21 %Mhf23-64RlulpSalem City HospitalComment on above:Performed By: #### LACWB #### [facility] [address] [place] [address] 88592 Monocytes #/vol (Bld)0.92 10*3/uLNormal0.10-1.20[facility] HospitalComment on above:Performed By: #### LACWB #### [facility] [employer] [address] [place] [address] 37311 Monocytes/100 WBC (Bld)11 %Normal3-12[facility] HospitalComment on above:Performed By: #### LACWB #### [facility] [employer] [address] [place] [address] 87912 Neutrophil (Seg)66 %Cuvu47-43UssguSalem City Hospital Comment on above:Performed By: #### LACWB #### [facility] [employer] [address] [place] [address] 18094 Erythrocyte distribution width Ratio (RBC)14.6 %High11.8-14.4[facility] HospitalComment on above:Performed By: #### LACWB #### [facility] [employer] [address] [place] [address] 00584 Hematocrit Volume Fraction (Bld)32.6 %Low36.3-47.1MSharp Chula Vista Medical CenterComment on above:Performed By: #### LACWB #### [facility] [employer] [address] [place] [address] 69802 Hemoglobin mass conc (Bld)10.0 g/dLLow11.9-15.1MSharp [facility]ula Vista Medical CenterComment on above:Performed By: #### LACWB #### [facility] [employer] [address] [place] [address] 96579 MCH Entitic mass (RBC)28.2 wnSjhdnu92.2-33.5[facility] HospitalComment on above:Performed By: #### LACWB #### [employer] [address] [place] [address] 86102 MCHC mass conc (RBC)30.7 g/mCAjkeae07.4-34.8[facility] HospitalComment on above:Performed By: #### LACWB #### [facility] [employer] [address] [place] [address] 84978 MCV Entitic volume (RBC)91.8 iTJzkyim89.6-102.9[facility] HospitalComment on above:Performed By: #### LACWB #### [facility] [employer] [address] [place] [address] 70266 NRBC Automated0.0 per 100 WBCNormal0.0[facility] HospitalComment on above:Performed By: #### LACWB #### [facility] [employer] [address] [place] [address] 57124 Platelet mean volume Entitic volume (Bld)10.4 fLNormal8.1-13.5[facility] HospitalComment on above:Performed By: #### LACWB #### [facility] [employer] [address] [place] [address] 86240 Platelets #/vol (Bld)292 10*3/kGJlyskh808-322QgdkvSalem City HospitalComment on above:Performed By: #### LACWB #### [facility] [employer] [address] [place] [address] 87194 RBC #/vol (Bld)3.55 10*6/uLLow3.95-5.11[facility] HospitalComment on above:Performed By: #### LACWB #### [facility] [employer] [address] [place] [address] 82188 RBC morphology finding Nom (Bld)ANISOCYTOSIS PRESENTNormalSalem City HospitalComment on above:Performed By: #### LACWB #### [address] 86082 WBC #/vol (Bld)8.8 10*3/uLNormal3.5-11.3[facility] Seton Medical CenterComment on above:Performed By: #### LACWB #### [address] 68474 Auto Diff PerformedNOT REPORTEDSelect Medical Specialty Hospital - Cincinnati NorthComment on above:Performed By: #### LACWB #### [address] 44625 Platelets #/vol (Bld)NOT REPORTEDSelect Medical Specialty Hospital - Cincinnati NorthComment on above:Performed By: #### LACWB #### [address] 65121 WBC MorphologyNOT REPORTEDSelect Medical Specialty Hospital - [facility] North Comment on above:Performed By: #### LACWB #### [address] [address] Fungi,Direct Examon [id number],Direct ExamSpecimen Description .SPINE .TISSUE T4 LAMINA Special Requests NOT REPORTED Direct Exam NO FUNGAL ELEMENTS SEEN Report Status FINAL 08/25/2018[facility] - [facility] NorthComment on above:Performed By: #### LACWB #### [address] 24071 Magnesiumon 65-93-3144Dcaekqtem mass conc2.4 mg/dLNormal1.6-2.6 [facility] HospitalComment on above:Performed By: #### LACWB #### [address] 23167 Procalcitoninon 34-38-1106Ourcddt mass conc0.13 ng/mLHigh<0.09[facility] HospitalComment on above:Result Comment: Suspected Sepsis: 0.09-0.49 [...] entered into the Change in Procalcitonin Calculator (www.xowxmp-wgn-ingadcesog.[facility]) to determine the patient's Mortality Risk PrognosisPerformed By: #### LACWB #### [employer] [address] [place] [address] 4990008 Cult,Aerobe/Anaerobeon [id number],Aerobe/AnaerobeSpecimen Description .SPINE Special Requests NOT REPORTED Direct Exam DUPLICATE ORDER SEE RESULTS FOR TISSUE CULTURE Culture NOT REPORTED Report Status FINAL 08/24/2018[facility] - [facility] NorthComment on above:Performed By: #### SPAG #### [employer] [address] [place] [address] [id number] Cult,Aerobe/AnaerobeSpecimen Description .SPINE Special Requests NOT REPORTED Direct Exam DUPLICATE ORDER SEE RESUULTS FOR TISSUE CULTURE Culture NOT REPORTED Report Status FINAL 08/24/2018[facility] - [facility] NorthComment on above:Performed By: #### SPAG #### [employer] [address] [place] [address] 43042 FLUORO FOR SURGICAL PROCEDURESon [id number] FOR SURGICAL PROCEDURESRadiology exam is complete. No Radiologist dictation. Please follow up with ordering provider. 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 LITA MCCRAY MD CAT/V_SSNCK_I Doc#: [id number] CC: Lita Mccray MDNoalSalem City HospitalProcalcitoninon 44-20-3384Ryucpvg mass conc0.16 ng/mLHigh<0.09[facility] Comment on above:Result Comment: Suspected Sepsis: 0.09-0.49 [...] entered into the Change in Procalcitonin Calculator (www.exxcwn-eyy-jkqaxlohkj.[facility]) to determine the patient's Mortality Risk PrognosisPerformed By: #### DIEGO #### [facility] [address] [place] [address] 91119 Basic Metab w/rfx MGon 08-23-2018(cont.)NormalSalem City HospitalComment on above:Result Comment: Average GFR for 30-39 years old: 107 mL/min/1.73sq m Chronic Kidney Disease: <60 mL/min/1.73sq m Kidney failure: <15 mL/min/1.73sq m eGFR calculated using average adult body mass. Additional eGFR calculator available at: http://www.MetaLINCS.[facility]/multiple_crcl_2012.htmPerformed By: #### DIEGO #### [facility] [address] [place] [address] 04999 Anion gap molar conc14 mmol/LNormal9-17[facility] HospitalComment on above:Performed By: #### DIEGO #### [facility] [address] [place] [address] 91782 Calcium mass conc9.9 mg/dLNormal8.6-10.4[facility] HospitalComment on above:Performed By: #### JANNETHG #### [facility] [address] [place] [address] 29771 Chloride molar conc99 mmol/IFvbbfv79-457GdxurSalem City HospitalComment on above:Performed By: #### JANNETHG #### [facility] [address] [place] [address] 87212 CO2 molar conc26 mmol/YKipfcc90-77UsznqSal[facility] Hospital Comment on above:Performed By: #### DIEGO #### [employer] [address] [place] [address] 73943 Creatinine mass conc1.42 mg/dLHigh0.50-0.90[facility] HospitalComment on above:Performed By: #### SPAG #### [employer] [address] [place] [address] 94372 GFR, Amer50 mL/minLow>60[facility] Comment on above:Performed By: #### SPAG #### [employer] [address] [place] [address] 04745 GFR,non Amer41 mL/minLow>60[facility] Comment on above:Performed By: #### SPAG #### [facility] [address] [place] [address] 78978 Glucose mass conc95 mg/vSDlxyuu56-81XvurfSharp Chula Vista Medical CenterComment on above:Performed By: #### JANNETHG #### [employer] [address] [place] [address] 49094 Potassium molar conc4.9 mmol/LNormal3.7-5.3MSharp Chula Vista Medical CenterComment on above:Result Comment: SPECIMEN SLIGHTLY HEMOLYZED, RESULTS MAY BE ADVERSELY AFFECTED.Performed By: #### SPAG #### [employer] [address] [place] [address] 47537 Sodium molar mybf655 mmol/GTnebzn605-134TjztnSalem City HospitalComment on above:Performed By: #### SPAG #### [employer] [address] [place] [address] 34349 Urea nitrogen mass conc31 mg/dLHigh6-20[facility] HospitalComment on above:Performed By: #### SPAG #### [employer] [address] [place] [address] 27893 BUN/CRE RatioNOT REPORTEDNormal9-20[facility] Comment on above:Performed By: #### SPAG #### [address] [address] Staging:NOT REPORTEDNormalSalem City HospitalComment on above:Performed By: #### DIEGO #### [address] 48628 CBC with Diffon [id number]. Basophil0.06 k/uLNormal0.00-0.20 [facility] HospitalComment on above:Performed By: #### DIEGO #### [address] 49146 Abs.Imm.Granulocyte0.22 k/uLNormal0.00-0.30[facility] HospitalComment on above:Performed By: #### DIEGO #### [address] 76504 Abs.Neutrophil (Seg)4.43 k/uLNormal1.50-8.10[facility] HospitalComment on above:Performed By: #### DIEGO #### [address] 49202 Basophils/100 WBC (Bld)1 %Normal0-2M[facility] Comment on above:Performed By: #### DIEGO #### [address] 47144 Eosinophils #/vol (Bld)0.15 10*3/uLNormal0.00-0.44[facility] HospitalComment on above:Performed By: #### JANNETHG #### [address] 77830 Eosinophils/100 WBC (Bld)2 %Normal1-4[facility] HospitalComment on above:Performed By: #### DIEGO #### [address] 66974 Erythrocyte distribution width Ratio (RBC)14.4 %Xathag55.8-14.4 [facility] HospitalComment on above:Performed By: #### JANNETHG #### [facility] [employer] [address] [place] [address] 01432 Hematocrit Volume Fraction (Bld)33.2 %Low36.3-47.1MSharp [facility]ula Vista Medical CenterComment on above:Performed By: #### SPAG #### [facility] [employer] [address] [place] [address] 11283 Hemoglobin mass conc (Bld)10.4 g/dLLow11.9-15.1MSharp [facility] Vista Medical CenterComment on above:Performed By: #### JANNETHG #### [address] 91234 Immature granulocytes #/vol (Bld)3 %Umrp5AdcwmSalem City HospitalComment on above:Performed By: #### JANNETHG #### [facility] [employer] [address] [place] [address] 96239 Lymphocytes #/vol (Bld)2.22 10*3/uLNormal1.10-3.70[facility] HospitalComment on above:Performed By: #### SPAG #### [facility] [employer] [address] [place] [address] 22053 Lymphocytes/100 WBC (Bld)29 %Qkbatt00-77UwbtjSalem City HospitalComment on above:Performed By: #### SPAG #### [facility] [employer] [address] [place] [address] 54125 MCH Entitic mass (RBC)27.7 yhHrvhth35.2-33.5[facility] HospitalComment on above:Performed By: #### SPAG #### [facility] [employer] [address] [place] [address] 38614 MCHC mass conc (RBC)31.3 g/hLDlxoye65.4-34.8[facility] HospitalComment on above:Performed By: #### JANNETHG #### [employer] [address] [place] [address] 49325 MCV Entitic volume (RBC)88.3 dOSoubrr16.6-102.9[facility] HospitalComment on above:Performed By: #### JANNETHG #### [employer] [address] [place] [address] 14728 Monocytes #/vol (Bld)0.63 10*3/uLNormal0.10-1.20[facility] HospitalComment on above:Performed By: #### DIEGO #### [employer] [address] [place] [address] 76652 Monocytes/100 WBC (Bld)8 %Normal3-12[facility] HospitalComment on above:Performed By: #### DIEGO #### [employer] [address] [place] [address] 64016 Neutrophil (Seg)57 %Itanaa94-98LhzshSalem City Hospital Comment on above:Performed By: #### JANNETHG #### [employer] [address] [place] [address] 26490 NRBC Automated0.0 per 100 WBCNormal0.0[facility] HospitalComment on above:Performed By: #### SPAG #### [employer] [address] [place] [address] 99993 Platelets #/vol (Bld)See Reflexed IPF JljufaYqtzaz086-692OypvfSalem City HospitalComment on above:Performed By: #### SPAG #### [employer] [address] [place] [address] 90846 RBC #/vol (Bld)3.76 10*6/uLLow3.95-5.11[facility] HospitalComment on above:Performed By: #### DIEGO #### [facility] [employer] [address] [place] [address] 00436 WBC #/vol (Bld)7.7 10*3/uLNormal3.5-11.3[facility] Seton Medical CenterComment on above:Performed By: #### DIEGO #### [facility] [employer] [address] [place] [address] 49741 Auto Diff PerformedNOT REPORTEDSelect Medical Specialty Hospital - Cincinnati NorthComment on above:Performed By: #### DIEGO #### [facility] [employer] [address] [place] [address] 89973 Platelet mean volume Entitic volume (Bld)NOT REPORTEDResearch Medical Center-Brookside Campusal8.1-13.5 [facility] HospitalComment on above:Performed By: #### DIEGO #### [facility] [employer] [address] [place] [address] 92190 Platelets #/vol (Bld)NOT REPORTEDNoPremier Health Miami Valley Hospital NorthComment on above:Performed By: #### DIEGO #### [facility] [employer] [address] [place] [address] 90416 RBC morphology finding Nom (Bld)NOT REPORTEDSelect Medical Specialty Hospital - [facility] NorthComment on above:Performed By: #### DIEGO #### [facility] [address] [place] [address] 30624 WBC MorphologyNOT REPORTEDSelect Medical Specialty [facility] Comment on above:Performed By: #### DIEGO #### [facility] [employer] [address] [place] [address] 60673 Cult,Bloodon [id number],BloodSpecimen Description .BLOOD Special Requests L AC 6ML Culture NO GROWTH 6 DAYS Report Status FINAL 08/23/2018[facility] NorthComment on above:Performed By: #### DIEGO #### [address] [address]69 Cult,BloodSpecimen Description .BLOOD Special Requests L FOREARM 6ML Culture NO GROWTH 6 DAYS Report Status FINAL 08/23/2018NormalSalem City HospitalComment on above:Performed By: #### SPAG #### [address] 37525 PLT, Immature Fract.on 16-27-1144Gjmxgrrw, Fluoresc.113 k/uLLow 138-453MerFountain Valley Regional Hospital and Medical CenterComment on above:Performed By: #### SPAG #### [address] 78903 PLT, Immature Fract.3.7 %Normal1.1-10.3Mer[facility] Seton Medical CenterComment on above:Performed By: #### SPAG #### [address] 04833 CBC with Diffon 36-35-2536Uza. Basophil0.00 k/uLNormal0.0-0.2MSharp [facility]ula Vista Medical CenterComment on above:Performed By: #### ULAG #### [address] 60450 Abs.Imm.Granulocyte0.30 k/uLNormal0.00-0.30[facility] HospitalComment on above:Performed By: #### ULAG #### [address] 16031 Abs.Neutrophil (Seg)4.87 k/uLNormal1.8-7.7[facility] HospitalComment on above:Performed By: #### ULAG #### [address] 88405 Basophils/100 WBC (Bld)0 %Normal0-2MercCorcoran District Hospital Comment on above:Performed By: #### ULAG #### [facility] [employer] [address] [place] [address] 03727 Eosinophils #/vol (Bld)0.00 10*3/uLNormal0.0-0.4[facility] HospitalComment on above:Performed By: #### ULAG #### [facility] [employer] [address] [place] [address] 30889 Eosinophils/100 WBC (Bld)0 %Low1-4[facility] Comment on above:Performed By: #### ULAG #### [facility] [employer] [address] [place] [address] 40581 Immature granulocytes #/vol (Bld)4 %Xyvh8TnxfcSalem City HospitalComment on above:Performed By: #### ULAG #### [facility] [employer] [address] [place] [address] 89124 Lymphocytes #/vol (Bld)1.88 10*3/uLNormal1.0-4.8[facility] HospitalComment on above:Performed By: #### ULAG #### [facility] [employer] [address] [place] [address] 50578 Lymphocytes/100 WBC (Bld)25 %Kzdbvl01-54DjdjiSalem City HospitalComment on above:Performed By: #### ULAG #### [facility] [employer] [address] [place] [address] 65263 Monocytes #/vol (Bld)0.45 10*3/uLNormal0.1-0.8[facility] HospitalComment on above:Performed By: #### ULAG #### [facility] [employer] [address] [place] [address] 82279 Monocytes/100 WBC (Bld)6 %Normal1-7[facility] Comment on above:Performed By: #### ULAG #### [facility] [employer] [address] [place] [address] 23801 Morphology Interp Rehan (Bld)ANISOCYTOSIS PRESENTNormalSalem City HospitalComment on above:Performed By: #### ULAG #### [facility] [employer] [address] [place] [address] 44786 Neutrophil (Seg)65 %Cmpjvz11-64GpwbtSalem City Hospital Comment on above:Performed By: #### ULAG #### [facility] [employer] [address] [place] [address] 46661 Erythrocyte distribution width Ratio (RBC)14.5 %High11.8-14.4[facility] HospitalComment on above:Performed By: #### ULAG #### [facility] [employer] [address] [place] [address] 69824 Hematocrit Volume Fraction (Bld)38.1 %Ykbthh36.3-47.1MSharp [facility] Vista Medical CenterComment on above:Performed By: #### ULAG #### [facility] [employer] [address] [place] [address] 48706 Hemoglobin mass conc (Bld)11.5 g/dLLow11.9-15.1MSharp [facility] Vista Medical CenterComment on above:Performed By: #### ULAG #### [facility] [employer] [address] [place] [address] 13987 MCH Entitic mass (RBC)28.3 ckIfbors38.2-33.5[facility] HospitalComment on above:Performed By: #### ULAG #### [facility] [employer] [address] [place] [address] 58654 MCHC mass conc (RBC)30.2 g/oHAarvby94.4-34.8[facility] HospitalComment on above:Performed By: #### ULAG #### [facility] [employer] [address] [place] [address] 67491 MCV Entitic volume (RBC)93.6 wKNimgfj48.6-102.9[facility] HospitalComment on above:Performed By: #### ULAG #### [facility] [address] [place] [address] 13232 NRBC Automated0.0 per 100 WBCNormal0.0[facility] HospitalComment on above:Performed By: #### ULAG #### [facility] [employer] [address] [place] [address] 09399 Platelet mean volume Entitic volume (Bld)10.7 fLNormal8.1-13.5[facility] HospitalComment on above:Performed By: #### ULAG #### [address] 01921 Platelets #/vol (Bld)265 10*3/mMJwcjai827-120JlrbhSalem City HospitalComment on above:Performed By: #### ULAG #### [facility] [employer] [address] [place] [address] 44225 RBC #/vol (Bld)4.07 10*6/uLNormal3.95-5.11[facility] HospitalComment on above:Performed By: #### ULAG #### [address] 40141 WBC #/vol (Bld)7.5 10*3/uLNormal3.5-11.3MSharp [facility] Vista Medical CenterComment on above:Performed By: #### ULAG #### [facility] [employer] [address] [place] [address] 58129 Auto Diff PerformedNOT REPORTEDResearch Medical Center-Brookside CampusalSalem City HospitalComment on above:Performed By: #### ULAG #### [address] 87218 Platelets #/vol (Bld)NOT REPORTEDNoPremier Health Miami Valley Hospital NorthComment on above:Performed By: #### ULAG #### [facility] [address] [place] [address] 66268 RBC morphology finding Nom (Bld)NOT REPORTEDNoPremier Health Miami Valley Hospital NorthComment on above:Performed By: #### ULAG #### [facility] [employer] [address] [place] [address] 49800 WBC MorphologyNOT REPORTEDNoPremier Health Miami Valley Hospital North Comment on above:Performed By: #### ULAG #### [facility] [employer] [address] [place] [address] 40390 Comp Metabolic Pr/rfx MGon 72-80-3445Cqcaiuv mass conc3.2 g/dLLow 3.5-5.2[facility] Seton Medical CenterComment on above:Performed By: #### ULAG #### [facility] [employer] [address] [place] [address] 95517 Albumin/Globulin mass ratio0.8 {ratio}Low1.0-2.5[facility] HospitalComment on above:Performed By: #### ULAG #### [facility] [address] [place] [address] 74119 Alkaline Phos90 U/LDekuse94-962AraceSalem City Hospital Comment on above:Performed By: #### ULAG #### [employer] [address] [place] [address] 15688 ALT enzyme act/vol18 U/LNormal5-33[facility] Comment on above:Performed By: #### ULAG #### [facility] [employer] [address] [place] [address] 01978 AST enzyme act/vol16 U/LNormal<32[facility] Comment on above:Performed By: #### ULAG #### [facility] [address] [place] [address] 07604 Protein mass conc7.0 g/dLNormal6.4-8.3MSharp [facility] Vista Medical CenterComment on above:Performed By: #### ULAG #### [employer] [facility] [place] [address] (cont.)NormalSalem City HospitalComment on above: Result Comment: Average GFR for 30-39 years old: 107 mL/min/1.73sq m Chronic Kidney Disease: <60 mL/min/1.73sq m Kidney failure: <15 mL/min/1.73sq m eGFR calculated using average adult body mass. Additional eGFR calculator available at: http://www.[employer]/multiple_crcl_2012.htmPerformed By: #### ULAG #### [employer] [address] [place] [address] 19280 Anion gap molar conc15 mmol/LNormal9-17[facility] HospitalComment on above:Performed By: #### ULAG #### [employer] [address] [place] [address] 24757 Bilirubin Ql (U)0.34 mg/dLNormal0.3-1.2MSharp [facility] Vista Medical CenterComment on above:Performed By: #### ULAG #### [employer] [address] [place] [address] 83287 Calcium mass conc9.7 mg/dLNormal8.6-10.4[facility] HospitalComment on above:Performed By: #### ULAG #### [employer] [address] [place] [address] 83557 Chloride molar zyli107 mmol/LBgocop25-881PriezSalem City HospitalComment on above:Performed By: #### ULAG #### [employer] [address] [place] [address] 55153 CO2 molar conc24 mmol/KWqudec18-08JdelpSalem City Hospital Comment on above:Performed By: #### ULAG #### [facility] [address] [place] [address] Creatinine mass conc1.02 mg/dLHigh0.50-0.90Sal[facility] City HospitalComment on above:Performed By: #### ULAG #### [facility] [address] [place] [address] 02543 GFR, Amer>60Normal>60Sal[facility] City HospitalComment on above:Performed By: #### ULAG #### [facility] [employer] [address] [place] [address] 63746 GFR,non Amer>60Normal>60[facility] Comment on above:Performed By: #### ULAG #### [facility] [employer] [address] [place] [address] 37802 Glucose mass yrff868 mg/eODyyx34-71VlwvlSharp [facility] Comment on above:Performed By: #### ULAG #### [facility] [employer] [address] [place] [address] 81649 Potassium molar conc4.5 mmol/LNormal3.7-5.3MSharp [facility] Medical CenterComment on above:Performed By: #### ULAG #### [facility] [address] [place] [address] 00433 Sodium molar knod255 mmol/BVqyyay169-475CgscgSalem City HospitalComment on above:Performed By: #### ULAG #### [facility] [address] [place] [address] 02600 Urea nitrogen mass conc19 mg/dLNormal6-20Sal[facility] City HospitalComment on above:Performed By: #### ULAG #### [facility] [employer] [address] [place] [address] 88486 BUN/CRE RatioNOT REPORTEDNormal9-20[facility] Comment on above:Performed By: #### ULAG #### [facility] [address] [place] [address] 94382 Staging:NOT REPORTEDNoPremier Health Miami Valley Hospital NorthComment on above:Performed By: #### ULAG #### [facility] [address] [place] [address] 93427 Magnesiumon 42-30-7131Hnthvgoib mass conc2.4 mg/dLNormal1.6-2.6 [facility] City HospitalComment on above:Performed By: #### ULAG #### [facility] [employer] [address] [place] [address] 38819 Vancomycin Troughon 32-57-6616Rmvcvyabpa Knwkfv11.2 ug/mLCritically high10.0-20.0Sal[facility] City HospitalComment on above:Result Comment: Higher trough serum vancomycin concentrations of 15-20 ug/mL are recommended for complicated infections such as bacteremia, endocarditis, osteomyelitis, meningitis, and hospital acquired pneumonia. ADDED ONPerformed By: #### ULAG #### [facility] [employer] [address] [place] [address] 69116 Date last dose,NOT REPORTEDNoPremier Health [facility] Hospital [facility] Comment on above:Performed By: #### ULAG #### [facility] [employer] [address] [place] [address] 31393 Dose amount,NOT REPORTEDNormalSalem City Hospital Comment on above:Performed By: #### ULAG #### [employer] [address] [place] [address] 19115 Time last dose,NOT REPORTEDNoPremier Health [facility] Comment on above:Performed By: #### ULAG #### [facility] [address] [place] [address] 85655 CBC with Diffon [id number]. Basophil0.08 k/uLNormal0.00-0.20 [facility] City HospitalComment on above:Performed By: #### ULAG #### [address] [address] Abs.Imm.Granulocyte0.50 k/uLHigh0.00-0.30[facility] City HospitalComment on above:Performed By: #### ULAG #### [address] 91508 Abs.Neutrophil (Seg)4.73 k/uLNormal1.50-8.10[facility] City HospitalComment on above:Performed By: #### ULAG #### [address] 36890 Basophils/100 WBC (Bld)1 %Normal0-2MSharp [facility] Comment on above:Performed By: #### ULAG #### [address] 78977 Eosinophils #/vol (Bld)0.17 10*3/uLNormal0.00-0.44[facility] City HospitalComment on above:Performed By: #### ULAG #### [address] 61214 Eosinophils/100 WBC (Bld)2 %Normal1-4Sal[facility] City HospitalComment on above:Performed By: #### ULAG #### [address] 78304 Immature granulocytes #/vol (Bld)6 %Lxdw2NuaxxSalem City HospitalComment on above:Performed By: #### ULAG #### [address] 61062 Lymphocytes #/vol (Bld)2.24 10*3/uLNormal1.10-3.70[facility] City HospitalComment on above:Performed By: #### ULAG #### [facility] [employer] [address] [place] [address] 45597 Lymphocytes/100 WBC (Bld)27 %Gwqufc55-97VwbgsSalem City HospitalComment on above:Performed By: #### ULAG #### [facility] [employer] [address] [place] [address] 02062 Monocytes #/vol (Bld)0.58 10*3/uLNormal0.10-1.20[facility] City HospitalComment on above:Performed By: #### ULAG #### [facility] [employer] [address] [place] [address] 31914 Monocytes/100 WBC (Bld)7 %Normal3-12[facility] City HospitalComment on above:Performed By: #### ULAG #### [facility] [employer] [address] [place] [address] 00270 Morphology Interp Rehan (Bld)ANISOCYTOSIS PRESENTNormalSalem City HospitalComment on above:Performed By: #### ULAG #### [facility] [employer] [address] [place] [address] 35394 Neutrophil (Seg)57 %Yejbpg31-31ZoeugSalem City Hospital Comment on above:Performed By: #### ULAG #### [facility] [employer] [address] [place] [address] 64875 Erythrocyte distribution width Ratio (RBC)14.6 %High11.8-14.4Sal[facility] City HospitalComment on above:Performed By: #### ULAG #### [facility] [employer] [address] [place] [address] 47653 Hematocrit Volume Fraction (Bld)38.5 %Rswsiy50.3-47.1MSharp [facility] Medical CenterComment on above:Performed By: #### ULAG #### [facility] [address] [place] [address] 62077 Hemoglobin mass conc (Bld)11.5 g/dLLow11.9-15.1MSharp [facility] Vista Medical CenterComment on above:Performed By: #### ULAG #### [facility] [employer] [address] [place] [address] 84302 MCH Entitic mass (RBC)28.2 swNhvcak99.2-33.5Sal[facility] City HospitalComment on above:Performed By: #### ULAG #### [address] 79397 MCHC mass conc (RBC)29.9 g/bNStoxqq87.4-34.8[facility] City HospitalComment on above:Performed By: #### ULAG #### [address] 61063 MCV Entitic volume (RBC)94.4 fPVsrxjk93.6-102.9Sal[facility] City HospitalComment on above:Performed By: #### ULAG #### [address] 70597 NRBC Automated0.0 per 100 WBCNormal0.0Sal[facility] City HospitalComment on above:Performed By: #### ULAG #### [address] 78976 Platelet mean volume Entitic volume (Bld)10.5 fLNormal8.1-13.5[facility] City HospitalComment on above:Performed By: #### ULAG #### [address] 69567 Platelets #/vol (Bld)264 10*3/fNPuqpri457-181SprbnSalem City HospitalComment on above:Performed By: #### ULAG #### [facility] [employer] [address] [place] [address] 96968 RBC #/vol (Bld)4.08 10*6/uLNormal3.95-5.11[facility] City HospitalComment on above:Performed By: #### ULAG #### [employer] [address] [place] [address] 29681 WBC #/vol (Bld)8.3 10*3/uLNormal3.5-11.3Mer[facility] Seton Medical CenterComment on above:Performed By: #### ULAG #### [employer] [address] [place] [address] 81180 Auto Diff PerformedNOT REPORTEDSelect Medical Specialty Hospital - [facility] NorthComment on above:Performed By: #### ULAG #### [employer] [address] [place] [address] 17572 Platelets #/vol (Bld)NOT REPORTEDSelect Medical Specialty Hospital - [facility] NorthComment on above:Performed By: #### ULAG #### [employer] [address] [place] [address] 90821 RBC morphology finding Nom (Bld)NOT REPORTEDNoPremier Health Miami Valley Hospital NorthComment on above:Performed By: #### ULAG #### [employer] [address] [place] [address] 87075 WBC MorphologyNOT REPORTEDSelect Medical Special[facility] North Comment on above:Performed By: #### ULAG #### [employer] [address] [place] [address] 96152 Comp Metabolic Pr/rfx MGon 08-21-2018(cont.)[facility] NorthComment on above:Result Comment: Average GFR for 30-39 years old: 107 mL/min/1.73sq m Chronic Kidney Disease: <60 mL/min/1.73sq m Kidney failure: <15 mL/min/1.73sq m eGFR calculated using average adult body mass. Additional eGFR calculator available at: http://www.globalrp.com/multiple_crcl_2012.htmPerformed By: #### ULAG #### [facility] [address] [place] [address] 37607 Albumin mass conc2.9 g/dLLow3.5-5.2MSharp [facility] Comment on above:Performed By: #### ULAG #### [facility] [employer] [address] [place] [address] 05746 Albumin/Globulin mass ratio0.7 {ratio}Low1.0-2.5Sal[facility] City HospitalComment on above:Performed By: #### ULAG #### [facility] [employer] [address] [place] [address] 33288 Alkaline Phos98 U/ECsghul36-337HliohSalem City Hospital Comment on above:Performed By: #### ULAG #### [facility] [employer] [address] [place] [address] 44415 ALT enzyme act/vol19 U/LNormal5-33[facility] Comment on above:Performed By: #### ULAG #### [facility] [employer] [address] [place] [address] 72328 Anion gap molar conc14 mmol/LNormal9-17[facility] City HospitalComment on above:Performed By: #### ULAG #### [facility] [employer] [address] [place] [address] 33091 AST enzyme act/vol21 U/LNormal<32[facility] Comment on above:Performed By: #### ULAG #### [facility] [employer] [address] [place] [address] 98269 Bilirubin Ql (U)0.32 mg/dLNormal0.3-1.2MSharp [facility] Medical CenterComment on above:Performed By: #### ULAG #### [facility] [employer] [address] [place] [address] 45407 Calcium mass conc9.1 mg/dLNormal8.6-10.4[facility] City HospitalComment on above:Performed By: #### ULAG #### [address] 47468 Chloride molar iiyg187 mmol/CRrzgau73-377ZwuwxSalem City HospitalComment on above:Performed By: #### ULAG #### [address] 71017 CO2 molar conc23 mmol/XRltlin98-95SktkbSalem City Hospital Comment on above:Performed By: #### ULAG #### [address] 21809 Creatinine mass conc0.90 mg/dLNormal0.50-0.90[facility] HospitalComment on above:Performed By: #### ULAG #### [address] 80160 GFR, Amer>60Normal>60[facility] HospitalComment on above:Performed By: #### ULAG #### [address] 91008 GFR,non Amer>60Normal>60[facility] Comment on above:Performed By: #### ULAG #### [facility] [employer] [address] [place] [address] 86671 Glucose mass cqlp153 mg/fLOicv65-73FlbrzSharp [facility] Comment on above:Performed By: #### ULAG #### [address] 72036 Potassium molar conc4.6 mmol/LNormal3.7-5.3MSharp [facility] Medical CenterComment on above:Performed By: #### ULAG #### [facility] [employer] [address] [place] [address] 73133 Protein mass conc6.9 g/dLNormal6.4-8.3[facility] Seton Medical CenterComment on above:Performed By: #### ULAG #### [employer] [address] [place] [address] 02273 Sodium molar gwic297 mmol/UJmmdqd018-155EgygfSalem City HospitalComment on above:Performed By: #### ULAG #### [employer] [address] [place] [address] 29344 Urea nitrogen mass conc17 mg/dLNormal6-20[facility] HospitalComment on above:Performed By: #### ULAG #### [employer] [address] [place] [address] 46673 BUN/CRE RatioNOT REPORTEDNew [place]9-20[facility] Comment on above:Performed By: #### ULAG #### [employer] [address] [place] [address] 45123 Staging:NOT REPORTEDNoPremier Health Miami Valley Hospital NorthComment on above:Performed By: #### ULAG #### [employer] [address] [place] [address] 52409 Cult,Bloodon [id number],BloodSpecimen Description .BLOOD Special Requests L AC 20ML Culture POSITIVE Blood Culture CALLED TO MIS Medina [phone] [id number] DIRECT GRAM STAIN FROM BOTTLE: GRAM POSITIVE COCCI IN CLUSTERS METHICILLIN RESISTANT STAPHYLOCOCCUS AUREUS For susceptibility, refer to previous culture. Report Status FINAL 08/21/2018[facility] NorthComment on above:Performed By: #### ULAG #### [employer] [address] [place] [address] 85253 MRI FOOT LEFT W WO CONTRASTon [id number] FOOT LEFT W WO CONTRAST EXAMINATION: MRI [...] by: Murali Goff MD 08/21/18 Final resultNormalMercy Seton Medical CenterMagnesiumon 08-21-2018 Magnesium mass conc2.4 mg/dLNormal1.6-2.6Mer[facility] Seton Medical CenterComment on above:Performed By: #### ULAG #### [facility] [employer] [address] [place] [address] Procalcitoninon 61-60-5388Kvumjjl mass conc0.27 ng/mLHigh<0.09Mercy Seton Medical CenterComment on above:Result Comment: Suspected Sepsis: [...] entered into the Change in Procalcitonin Calculator ([email or web address]-ome-rcxvetzutm.com) to determine the patient's Mortality Risk PrognosisPerformed By: #### SEBAG #### [facility] [employer] [address] [place] [address] [phone]-Iqvewdrb Proteinon 40-04-5056ZAG mass conc50.4 mg/LHigh0.0-5.0 [facility] HospitalComment on above:Performed By: #### LALO, TROPI, PRCAL, MYCM #### [employer] [address] [place] [address] CBC with Diffon [id number]. Basophil0.08 k/uLNormal0.0-0.2Mglenbeigh hospitaly Seton Medical CenterComment on above:Performed By: #### LALO, TROPI, PRCAL, MYCM #### [employer] [address] [place], [place] [address] Abs.Imm.Granulocyte0.42 k/uLHigh0.00-0.30MerFountain Valley Regional Hospital and Medical CenterComment on above:Performed By: #### LALO, DAMIENI, PRCAL, MYCM #### [address] 01173 Abs.Neutrophil (Seg)4.57 k/uLNormal1.8-7.7[facility] City HospitalComment on above:Performed By: #### LALO, TROPI, PRCAL, MYCM #### [address] 73021 Basophils/100 WBC (Bld)1 %Normal0-2M[facility] Comment on above:Performed By: #### LALO, TROPI, PRCAL, MYCM #### [place] [address] Eosinophils #/vol (Bld)0.25 10*3/uLNormal0.0-0.4[facility] City HospitalComment on above:Performed By: #### LALO, DAMIENI, PRCAL, MYCM #### [address] 20820 Eosinophils/100 WBC (Bld)3 %Normal1-4[facility] HospitalComment on above:Performed By: #### LALO, TROPI, PRCAL, MYCM #### [address] 67914 Immature granulocytes #/vol (Bld)5 %Lopr3QwydzFountain Valley Regional Hospital and Medical CenterComment on above:Performed By: #### LALO, TROPI, PRCAL, MYCM #### [address] 22988 Lymphocytes #/vol (Bld)2.32 10*3/uLNormal1.0-4.8[facility] HospitalComment on above:Performed By: #### LACDS, TROPI, PRCAL, MYCM #### [facility] [address] [place] [address] 15708 Lymphocytes/100 WBC (Bld)28 %Etgsfo45-08CbtqbSalem City HospitalComment on above:Performed By: #### LACDS, TROPI, PRCAL, MYCM #### [facility] [employer] [address] [place] [address] 09453 Monocytes #/vol (Bld)0.66 10*3/uLNormal0.1-0.8[facility] HospitalComment on above:Performed By: #### LACDS, TROPI, PRCAL, MYCM #### [facility] [address] [place] [address] 65383 Monocytes/100 WBC (Bld)8 %High1-7[facility] Comment on above:Performed By: #### LACDS, TROPI, PRCAL, MYCM #### [employer] [address] [place] [address] 61775 Morphology Interp Rehan (Bld)ANISOCYTOSIS PRESENTNormalSalem City HospitalComment on above:Performed By: #### LACDS, TROPI, PRCAL, MYCM #### [facility] [address] [place] [address] 23689 Neutrophil (Seg)55 %Jnyrpd30-97NpcvuSalem City Hospital Comment on above:Performed By: #### LACDS, TROPI, PRCAL, MYCM #### [employer] [address] [place] [address] 07186 Erythrocyte distribution width Ratio (RBC)14.6 %High11.8-14.4[facility] HospitalComment on above:Performed By: #### LACDS, TROPI, PRCAL, MYCM #### [facility] [address] [place] [address] 58465 Hematocrit Volume Fraction (Bld)33.5 %Low36.3-47.1MSharp [facility] Vista Medical CenterComment on above:Performed By: #### LALO, TROPI, PRCAL, MYCM #### [facility] [employer] [address] [place] [address] 38091 Hemoglobin mass conc (Bld)10.2 g/dLLow11.9-15.1MSharp [facility] Medical CenterComment on above:Performed By: #### LACREY, TROPI, PRCAL, MYCM #### [facility] [employer] [address] [place] [address] 24901 MCH Entitic mass (RBC)27.9 egWppcyx21.2-33.5[facility] HospitalComment on above:Performed By: #### LALO, TROPI, PRCAL, MYCM #### [facility] [employer] [address] [place] [address] 99507 MCHC mass conc (RBC)30.4 g/kHCrorxq13.4-34.8[facility] HospitalComment on above:Performed By: #### LALO, TROPI, PRCAL, MYCM #### [facility] [employer] [address] [place] [address] 68508 MCV Entitic volume (RBC)91.5 yWBqeqfg87.6-102.9[facility] HospitalComment on above:Performed By: #### LACREY, TROPI, PRCAL, MYCM #### [facility] [address] [place] [address] 09578 NRBC Automated0.0 per 100 WBCNormal0.0[facility] HospitalComment on above:Performed By: #### LACREY, TROPI, PRCAL, MYCM #### [facility] [address] [place] [address] 60449 Platelet mean volume Entitic volume (Bld)11.0 fLNormal8.1-13.5[facility] HospitalComment on above:Performed By: #### LACDS, TROPI, PRCAL, MYCM #### [employer] [address] [place] [address] 00302 Platelets #/vol (Bld)211 10*3/nAVmilef035-413AekpeSalem City HospitalComment on above:Performed By: #### LACDS, TROPI, PRCAL, MYCM #### [facility] [address] [place] [address] 23719 RBC #/vol (Bld)3.66 10*6/uLLow3.95-5.11[facility] HospitalComment on above:Performed By: #### LACDS, TROPI, PRCAL, MYCM #### [employer] [address] [place] [address] 21049 WBC #/vol (Bld)8.3 10*3/uLNormal3.5-11.3MSharp [facility] Medical CenterComment on above:Performed By: #### LACDS, TROPI, PRCAL, MYCM #### [employer] [address] [place] [address] 76750 Auto Diff PerformedNOT REPORTEDNoalSalem City HospitalComment on above:Performed By: #### LACDS, TROPI, PRCAL, MYCM #### [employer] [address] [place] [address] 13046 Platelets #/vol (Bld)NOT REPORTEDNoPremier Health Miami Valley Hospital NorthComment on above:Performed By: #### LACDS, TROPI, PRCAL, MYCM #### [employer] [address] [place] [address] 69188 RBC morphology finding Nom (Bld)NOT REPORTEDNormalSalem City HospitalComment on above:Performed By: #### LACDS, TROPI, PRCAL, MYCM #### [employer] [address] [place] [address] 89568 WBC MorphologyNOT REPORTEDNormalSalem City Hospital Comment on above:Performed By: #### GRACE MAY PRCAL, MYCM #### [facility] [address] [place] [address] 64445 Comp Metabolic Pr/rfx MGon 08-20-2018(cont.)NormalSalem City HospitalComment on above:Result Comment: Average GFR for 30-39 years old: 107 mL/min/1.73sq m Chronic Kidney Disease: <60 mL/min/1.73sq m Kidney failure: <15 mL/min/1.73sq m eGFR calculated using average adult body mass. Additional eGFR calculator available at: http://www.[employer]/multiple_crcl_2012.htmPerformed By: #### GRACE MAY PRCAL, MYCM #### [facility] [address] [place] [address] 37124 Albumin mass conc3.1 g/dLLow3.5-5.2M[facility] Comment on above:Performed By: #### GRACE MAY, PRCAL, MYCM #### [employer] [address] [place] [address] 34998 Albumin/Globulin mass ratio0.9 {ratio}Low1.0-2.5[facility] HospitalComment on above:Performed By: #### DAMIEN MAYI, PRCAL, MYCM #### [employer] [address] [place] [address] 13442 Alkaline Phos83 U/PPahghs99-671FxxwdSalem City Hospital Comment on above:Performed By: #### GRACE MAY, PRCAL, MYCM #### [employer] [address] [place] [address] 41718 ALT enzyme act/vol17 U/LNormal5-33[facility] Comment on above:Performed By: #### GRACE MAY, PRCAL, MYCM #### [facility] [employer] [facility] [place] [address] Anion gap molar conc11 mmol/LNormal9-17[facility] HospitalComment on above:Performed By: #### LACDS, TROPI, PRCAL, MYCM #### [facility] [employer] [address] [place] [address] 10868 AST enzyme act/vol18 U/LNormal<32[facility] Comment on above:Performed By: #### LACDS, TROPI, PRCAL, MYCM #### [facility] [employer] [address] [place] [address] 96639 Bilirubin Ql (U)0.29 mg/dLLow0.3-1.2MSharp [facility] Medical CenterComment on above:Performed By: #### LACDS, TROPI, PRCAL, MYCM #### [facility] [employer] [address] [place] [address] 71500 Calcium mass conc9.0 mg/dLNormal8.6-10.4[facility] HospitalComment on above:Performed By: #### LACDS, TROPI, PRCAL, MYCM #### [facility] [employer] [address] [place] [address] 25472 Chloride molar sfzy419 mmol/TUiayxf28-851ZgjmcSalem City HospitalComment on above:Performed By: #### LACDS, TROPI, PRCAL, MYCM #### [facility] [employer] [address] [place] [address] 91058 CO2 molar conc27 mmol/PPnukdo33-10ZheukSalem City Hospital Comment on above:Performed By: #### LACDS, TROPI, PRCAL, MYCM #### [facility] [address] [place] [address] 58592 Creatinine mass conc0.97 mg/dLHigh0.50-0.90[facility] HospitalComment on above:Performed By: #### LACDS, TROPI, PRCAL, MYCM #### [facility] [address] [place] [address] 79095 GFR, Amer>60Normal>60[facility]on Medical CenterComment on above:Performed By: #### LACDS, TROPI, PRCAL, MYCM #### [facility] [address] [place] [address] 15532 GFR,non Amer>60Normal>60[facility] Comment on above:Performed By: #### LACDS, TROPI, PRCAL, MYCM #### [facility] [employer] [address] [place] [address] 27291 Glucose mass kgxy285 mg/bFFnkm60-98Xmkiy [facility] Comment on above:Performed By: #### LACDS, TROPI, PRCAL, MYCM #### [facility] [employer] [address] [place] [address] 90605 Potassium molar conc4.4 mmol/LNormal3.7-5.3[facility] Medical CenterComment on above:Performed By: #### LACDS, TROPI, PRCAL, MYCM #### [facility] [employer] [address] [place] [address] 25119 Protein mass conc6.6 g/dLNormal6.4-8.3[facility] Medical CenterComment on above:Performed By: #### LACDS, TROPI, PRCAL, MYCM #### [facility] [employer] [address] [place] [address] 52397 Sodium molar fojc654 mmol/XFrrsgv622-612Zbtnj [facility]on Medical CenterComment on above:Performed By: #### LACDS, TROPI, PRCAL, MYCM #### [facility] [employer] [address] [place] [address] 16843 Urea nitrogen mass conc15 mg/dLNormal6-20[facility] Medical CenterComment on above:Performed By: #### LACDS, TROPI, PRCAL, MYCM #### [facility] [address] [place] [address] 42107 BUN/CRE RatioNOT REPORTEDNormal9-20[facility] Comment on above:Performed By: #### LACDS, TROPI, PRCAL, MYCM #### [facility] [employer] [address] [place] [address] 93042 Staging:NOT REPORTEDNoPremier Health Miami Valley Hospital NorthComment on above:Performed By: #### LACDS, TROPI, PRCAL, MYCM #### [facility] [address] [place] [address] 76285 Magnesiumon 61-17-4155Ofebctvdy mass conc2.2 mg/dLNormal1.6-2.6 [facility] HospitalComment on above:Performed By: #### LACDS, TROPI, PRCAL, MYCM #### [facility] [address] [place] [address] 87148 Sedimentation Rateon [id number] Ezzm365 mmHigh0-20 [facility] HospitalComment on above:Performed By: #### LACDS, TROPI, PRCAL, MYCM #### [facility] [address] [place] [address] 31424 XR FOOT LEFT (MIN 3 VIEWS)on [id number] FOOT LEFT (MIN 3 VIEWS) EXAMINATION: 3 [...] Signed by: Andrey Angelo MD 08/20/18 Final resultNoPremier Health Miami Valley Hospital NorthCBC with Diffon [id number]. Basophil0.00 k/uLNormal0.0-0.2MSharp [facility]ula Vista Medical CenterComment on above: Performed By: #### LALO, TROPI, PRCAL, MYCM #### [facility] [address] [place] [address] 17147 Abs.Imm.Granulocyte0.42 k/uLHigh0.00-0.30[facility] City HospitalComment on above:Performed By: #### LALO, TROPI, PRCAL, MYCM #### [facility] [address] [place] [address] 28522 Abs.Neutrophil (Seg)2.70 k/uLNormal1.8-7.7[facility] City HospitalComment on above:Performed By: #### LALO, TROPI, PRCAL, MYCM #### [facility] [address] [place] [address] 75522 Basophils/100 WBC (Bld)0 %Normal0-2[facility] Comment on above:Performed By: #### LALO, TROPI, PRCAL, MYCM #### [facility] [address] [place] [address] 76913 Eosinophils #/vol (Bld)0.30 10*3/uLNormal0.0-0.4[facility] HospitalComment on above:Performed By: #### LACDS, TROPI, PRCAL, MYCM #### [employer] [address] [place] [address] 38321 Eosinophils/100 WBC (Bld)5 %High1-4[facility] Comment on above:Performed By: #### LACDS, TROPI, PRCAL, MYCM #### [facility] [address] [place] [address] 42796 Immature granulocytes #/vol (Bld)7 %Hxbf2PppwbSalem City HospitalComment on above:Performed By: #### LACDS, TROPI, PRCAL, MYCM #### [facility] [address] [place] [address] 72196 Lymphocytes #/vol (Bld)2.22 10*3/uLNormal1.0-4.8[facility] HospitalComment on above:Performed By: #### LACDS, TROPI, PRCAL, MYCM #### [facility] [employer] [address] [place] [address] 49041 Lymphocytes/100 WBC (Bld)37 %Qqhrvw30-48DspmbSalem City HospitalComment on above:Performed By: #### LACDS, TROPI, PRCAL, MYCM #### [facility] [address] [place] [address] 82256 Monocytes #/vol (Bld)0.36 10*3/uLNormal0.1-0.8[facility] HospitalComment on above:Performed By: #### LACDS, TROPI, PRCAL, MYCM #### [facility] [address] [place] [address] 07086 Monocytes/100 WBC (Bld)6 %Normal1-7[facility] Comment on above:Performed By: #### LACDS, TROPI, PRCAL, MYCM #### [facility] [address] [place] [address] 66707 Morphology Interp Rehan (Bld)ANISOCYTOSIS PRESENTNormalSalem City HospitalComment on above:Performed By: #### LACDS, TROPI, PRCAL, MYCM #### [employer] [address] [place] [address] 63166 Neutrophil (Seg)45 %Snjbvd79-75HxtafSalem City Hospital Comment on above:Performed By: #### LACDS, TROPI, PRCAL, MYCM #### [employer] [address] [place] [address] 48965 Erythrocyte distribution width Ratio (RBC)14.6 %High11.8-14.4[facility] City HospitalComment on above:Performed By: #### LACDS, TROPI, PRCAL, MYCM #### [facility] [employer] [address] [place] [address] 78822 Hematocrit Volume Fraction (Bld)34.4 %Low36.3-47.1MSharp [facility] Vista Medical CenterComment on above:Performed By: #### LACDS, TROPI, PRCAL, MYCM #### [facility] [employer] [address] [place] [address] 46249 Hemoglobin mass conc (Bld)10.4 g/dLLow11.9-15.1MSharp [facility] Medical CenterComment on above:Performed By: #### LACDS, TROPI, PRCAL, MYCM #### [facility] [employer] [address] [place] [address] 49245 MCH Entitic mass (RBC)28.0 xjJyxapp96.2-33.5[facility] HospitalComment on above:Performed By: #### LACDS, TROPI, PRCAL, MYCM #### [facility] [employer] [address] [place] [address] 54970 MCHC mass conc (RBC)30.2 g/tZQwljtd27.4-34.8[facility] HospitalComment on above:Performed By: #### LACDS, TROPI, PRCAL, MYCM #### [facility] [employer] [address] [place] [address] 60099 MCV Entitic volume (RBC)92.7 pPPxyfyk52.6-102.9[facility] HospitalComment on above:Performed By: #### LACDS, TROPI, PRCAL, MYCM #### [facility] [employer] [address] [place] [address] 56537 NRBC Automated0.3 per 100 WBCHigh0.0Sal[facility] City HospitalComment on above:Performed By: #### LACDS, TROPI, PRCAL, MYCM #### [employer] [address] [place] [address] 29932 Platelet mean volume Entitic volume (Bld)10.5 fLNormal8.1-13.5[facility] City HospitalComment on above:Performed By: #### LACDS, TROPI, PRCAL, MYCM #### [employer] [address] [place] [address] 04706 Platelets #/vol (Bld)168 10*3/bXOtfqgk566-432FkkzwSalem City HospitalComment on above:Performed By: #### LACDS, TROPI, PRCAL, MYCM #### [employer] [address] [place] [address] 34472 RBC #/vol (Bld)3.71 10*6/uLLow3.95-5.11[facility] HospitalComment on above:Performed By: #### LACDS, TROPI, PRCAL, MYCM #### [employer] [address] [place] [address] 46417 WBC #/vol (Bld)6.0 10*3/uLNormal3.5-11.3MercCorcoran District HospitalComment on above:Performed By: #### LACDS, TROPI, PRCAL, MYCM #### [employer] [address] [place] [address] 39402 Auto Diff PerformedNOT REPORTEDSelect Medical Specialty Hospital - Cincinnati NorthComment on above:Performed By: #### LACDS, TROPI, PRCAL, MYCM #### [employer] [address] [place] [address] 71832 Platelets #/vol (Bld)NOT REPORTEDSelect Medical Specialty Hospital - Cincinnati NorthComment on above:Performed By: #### LACDS, TROPI, PRCAL, MYCM #### [employer] [facility] [place] [address] RBC morphology finding Nom (Bld)NOT REPORTEDNoPremier Health Miami Valley Hospital NorthComment on above:Performed By: #### LACDS, TROPI, PRCAL, MYCM #### [employer] [address] [place] [address] 79962 WBC MorphologyNOT REPORTEDNormalSalem City Hospital Comment on above:Performed By: #### LACDS, TROPI, PRCAL, MYCM #### [employer] [address] [place] [address] 64412 Comp Metabolic Pr/rfx MGon 08-19-2018(cont.)NormalSalem City HospitalComment on above:Result Comment: Average GFR for 30-39 years old: 107 mL/min/1.73sq m Chronic Kidney Disease: <60 mL/min/1.73sq m Kidney failure: <15 mL/min/1.73sq m eGFR calculated using average adult body mass. Additional eGFR calculator available at: http://www.[employer]/multiple_crcl_2012.htmPerformed By: #### LACDS, TROPI, PRCAL, MYCM #### [employer] [facility] [place] [address] Albumin mass conc2.7 g/dLLow3.5-5.2[facility] Comment on above:Performed By: #### LACDS, TROPI, PRCAL, MYCM #### [employer] [facility] [place] [address] Albumin/Globulin mass ratio0.8 {ratio}Low1.0-2.5[facility] City HospitalComment on above:Performed By: #### LACDS, TROPI, PRCAL, MYCM #### [employer] [address] [place] [address] 48469 Alkaline Phos78 U/BPwbqhu91-819JohzoSalem City Hospital Comment on above:Performed By: #### LACDS, TROPI, PRCAL, MYCM #### [facility] [employer] [address] [place] [address] 89779 ALT enzyme act/vol16 U/LNormal5-33[facility] Comment on above:Performed By: #### LACDS, TROPI, PRCAL, MYCM #### [facility] [address] [place] [address] 10506 Anion gap molar conc10 mmol/LNormal9-17[facility] HospitalComment on above:Performed By: #### LACDS, TROPI, PRCAL, MYCM #### [facility] [employer] [address] [place] [address] 15713 AST enzyme act/vol16 U/LNormal<32[facility] Comment on above:Performed By: #### LACDS, TROPI, PRCAL, MYCM #### [facility] [address] [place] [address] 30581 Bilirubin Ql (U)0.21 mg/dLLow0.3-1.2MSharp [facility] Vista Medical CenterComment on above:Performed By: #### LACDS, TROPI, PRCAL, MYCM #### [facility] [address] [place] [address] 55075 Calcium mass conc8.5 mg/dLLow8.6-10.4[facility] HospitalComment on above:Performed By: #### LACDS, TROPI, PRCAL, MYCM #### [employer] [address] [place] [address] 34920 Chloride molar ycrf226 mmol/GRksufz02-470GcgwmSalem City HospitalComment on above:Performed By: #### LACDS, TROPI, PRCAL, MYCM #### [employer] [address] [place] [address] 97174 CO2 molar conc24 mmol/RXpnkul64-05CuhyvSalem City Hospital Comment on above:Performed By: #### LACDS, TROPI, PRCAL, MYCM #### [facility] [employer] [address] [place] [address] 01324 Creatinine mass conc0.88 mg/dLNormal0.50-0.90[facility] HospitalComment on above:Performed By: #### LACDS, TROPI, PRCAL, MYCM #### [facility] [employer] [address] [place] [address] 49627 GFR, Amer>60Normal>60[facility] HospitalComment on above:Performed By: #### LACDS, TROPI, PRCAL, MYCM #### [facility] [employer] [address] [place] [address] 85770 GFR,non Amer>60Normal>60[facility] Comment on above:Performed By: #### LACDS, TROPI, PRCAL, MYCM #### [facility] [employer] [address] [place] [address] 19064 Glucose mass xque032 mg/uAJsoy57-99FqkykSharp [facility] Comment on above:Performed By: #### LACDS, TROPI, PRCAL, MYCM #### [facility] [employer] [address] [place] [address] 56717 Potassium molar conc4.0 mmol/LNormal3.7-5.3MSharp [facility] Vista Medical CenterComment on above:Performed By: #### LACDS, TROPI, PRCAL, MYCM #### [facility] [address] [place] [address] 71689 Protein mass conc6.3 g/dLLow6.4-8.3Mglenbeigh hospitaly [facility] Comment on above:Performed By: #### LACDS, TROPI, PRCAL, MYCM #### [facility] [employer] [address] [place] [address] 97277 Sodium molar vlgr243 mmol/KHugizu160-544UcuqoSalem City HospitalComment on above:Performed By: #### LALO, TROPI, PRCAL, MYCM #### [employer] [address] [place] [address] Urea nitrogen mass conc16 mg/dLNormal6-20[facility] City HospitalComment on above:Performed By: #### LACREY, TROPI, PRCAL, MYCM #### [employer] [facility] [place] [address] BUN/CRE RatioNOT REPORTEDNormal9-20[facility] Comment on above:Performed By: #### LALO, TROPI, PRCAL, MYCM #### [employer] [address] [place] [address] 00330 Staging:NOT REPORTEDNormAvita Health System Galion HospitalComment on above:Performed By: #### LACREY, TROPI, PRCAL, MYCM #### [employer] [address] [place] [address] 60182 Cult, Bloodon [id number], BloodSpecimen Description .BLOOD Special Requests L HAND [...] NOT REPORTED Trimethoprim/Sulfa <=10 SUSCEPTIBLE Vancomycin 1 SUSCEPTIBLENoPremier Health Miami Valley Hospital NorthComment on above: Performed By: #### LACDS, TROPI, PRCAL, MYCM #### [employer] [address] [place] [address] MRI CERVICAL SPINE W WO CONTRASTon [id number] CERVICAL SPINE W WO CONTRASTEXAMINATION: MRI OF [...] Signed by: Bo Rodrigues MD 08/19/18 Final resultNormalMerFountain Valley Regional Hospital and Medical CenterMRI LUMBAR SPINE W WO CONTRAST on 01-76-2227GVI LUMBAR SPINE W WO CONTRASTEXAMINATION: MRI OF [...] by: Bo Rodrigues MD 08/19/18 Final resultNormalMercy [facility] THORACIC SPINE W WO CONTRASTon [id number] THORACIC SPINE W WO CONTRASTEXAMINATION: MRI OF [...] by: Bo Rodrigues MD 08/19/18 Final resultNormalMercy Seton Medical CenterMagnesiumon 08-19-2018 Magnesium mass conc2.3 mg/dLNormal1.6-2.6[facility] Medical CenterComment on above:Performed By: #### GRACE MAY PRCAL, MARYCRUZM #### [employer] [address] [place] [address] Procalcitoninon 06-84-3400Fsxudhd mass conc0.57 ng/mLHigh<0.09MerFountain Valley Regional Hospital and Medical CenterComment on above:Result Comment: Suspected Sepsis: [...] entered into the Change in Procalcitonin Calculator ([email or web address]-aee-[email or web address]) to determine the patient's Mortality Risk PrognosisPerformed By: #### GRACE MAY PRCAL, MARYCRUZM #### [employer] [address] [place] [address] CBC with Diffon [id number]. Basophil<0.00Oyhxki6.00-0.20MerFountain Valley Regional Hospital and Medical CenterComment on above:Performed By: #### GRACE MAY PRCAL, JAZMYN #### [employer] [address] [place] [address] Abs.Imm.Granulocyte0.28 k/uLNormal0.00-0.30MerFountain Valley Regional Hospital and Medical CenterComment on above:Performed By: #### DAMIEN MAYI, PRCAL, MYCM #### [facility] [address] [place] [address] 34415 Abs.Neutrophil (Seg)3.23 k/uLNormal1.50-8.10[facility] City HospitalComment on above:Performed By: #### LACDS, TROPI, PRCAL, MYCM #### [facility] [employer] [address] [place] [address] 57163 Basophils/100 WBC (Bld)0 %Normal0-2[facility] Comment on above:Performed By: #### LACDS, TROPI, PRCAL, MYCM #### [facility] [employer] [address] [place] [address] 01607 Eosinophils #/vol (Bld)0.15 10*3/uLNormal0.00-0.44[facility] HospitalComment on above:Performed By: #### LACDS, TROPI, PRCAL, MYCM #### [facility] [employer] [address] [place] [address] 62889 Eosinophils/100 WBC (Bld)3 %Normal1-4[facility] HospitalComment on above:Performed By: #### LACDS, TROPI, PRCAL, MYCM #### [facility] [address] [place] [address] 41060 Erythrocyte distribution width Ratio (RBC)14.7 %High11.8-14.4[facility] HospitalComment on above:Performed By: #### LACDS, TROPI, PRCAL, MYCM #### [facility] [employer] [address] [place] [address] 59350 Hematocrit Volume Fraction (Bld)32.7 %Low36.3-47.1MercCorcoran District HospitalComment on above:Performed By: #### LACDS, TROPI, PRCAL, MYCM #### [facility] [address] [place] [address] 71143 Hemoglobin mass conc (Bld)10.1 g/dLLow11.9-15.1Mglenbeigh hospitaly [facility] CenterComment on above:Performed By: #### LACREY, TROPI, PRCAL, MYCM #### [facility] [employer] [address] [place] [address] 74452 Immature granulocytes #/vol (Bld)5 %Tpjw4AquihSalem City HospitalComment on above:Performed By: #### LACREY, TROPI, PRCAL, MYCM #### [facility] [employer] [address] [place] [address] 74147 Lymphocytes #/vol (Bld)1.58 10*3/uLNormal1.10-3.70[facility] HospitalComment on above:Performed By: #### LACREY, TROPI, PRCAL, MYCM #### [facility] [employer] [address] [place] [address] 06008 Lymphocytes/100 WBC (Bld)28 %Knqkmy03-41RjjufSalem City HospitalComment on above:Performed By: #### LALO, TROPI, PRCAL, MYCM #### [facility] [employer] [address] [place] [address] 13412 MCH Entitic mass (RBC)28.2 bwHlvvgr45.2-33.5[facility] HospitalComment on above:Performed By: #### LACREY, TROPI, PRCAL, MYCM #### [facility] [employer] [address] [place] [address] 28188 MCHC mass conc (RBC)30.9 g/cFBhmpua05.4-34.8[facility] HospitalComment on above:Performed By: #### LACDS, TROPI, PRCAL, MYCM #### [facility] [employer] [address] [place] [address] 99162 MCV Entitic volume (RBC)91.3 zLGvagjw56.6-102.9[facility] HospitalComment on above:Performed By: #### LACDS, TROPI, PRCAL, MYCM #### [facility] [address] [place] [address] 53554 Monocytes #/vol (Bld)0.47 10*3/uLNormal0.10-1.20[facility] HospitalComment on above:Performed By: #### LACDS, TROPI, PRCAL, MYCM #### [facility] [employer] [address] [place] [address] 17074 Monocytes/100 WBC (Bld)8 %Normal3-12[facility] HospitalComment on above:Performed By: #### LACDS, TROPI, PRCAL, MYCM #### [facility] [address] [place] [address] 26684 Neutrophil (Seg)56 %Fpiknn49-36GjwufSalem City Hospital Comment on above:Performed By: #### LACDS, TROPI, PRCAL, MYCM #### [facility] [employer] [address] [place] [address] 34893 NRBC Automated0.0 per 100 WBCNormal0.0[facility] HospitalComment on above:Performed By: #### LACDS, TROPI, PRCAL, MYCM #### [address] [address] Platelet mean volume Entitic volume (Bld)11.4 fLNormal8.1-13.5[facility] HospitalComment on above:Performed By: #### LACDS, TROPI, PRCAL, MYCM #### [facility] [employer] [address] [place] [address] 86080 Platelets #/vol (Bld)153 10*3/uCPcktsz311-417YvoncSalem City HospitalComment on above:Performed By: #### LACDS, TROPI, PRCAL, MYCM #### [employer] [address] [place] [address] 21306 RBC #/vol (Bld)3.58 10*6/uLLow3.95-5.11[facility] HospitalComment on above:Performed By: #### LACDS, TROPI, PRCAL, MYCM #### [employer] [address] [place] [address] 52054 RBC morphology finding Nom (Bld)ANISOCYTOSIS PRESENTNormalSalem City HospitalComment on above:Performed By: #### LACDS, TROPI, PRCAL, MYCM #### [facility] [employer] [address] [place] [address] 73116 WBC #/vol (Bld)5.7 10*3/uLNormal3.5-11.3[facility] Medical CenterComment on above:Performed By: #### LACDS, TROPI, PRCAL, MYCM #### [employer] [address] [place] [address] 87106 Auto Diff PerformedNOT REPORTEDNormAvita Health System Galion HospitalComment on above:Performed By: #### LACDS, TROPI, PRCAL, MYCM #### [employer] [address] [place] [address] 23585 Platelets #/vol (Bld)NOT REPORTEDNormAvita Health System Galion HospitalComment on above:Performed By: #### LACDS, TROPI, PRCAL, MYCM #### [employer] [address] [place] [address] 95628 WBC MorphologyNOT REPORTEDNoPremier Health [facility] North Comment on above:Performed By: #### LACDS, TROPI, PRCAL, MYCM #### [employer] [address] [place] [address] 87167 Comp Metabolic Pr/rfx MGon 08-18-2018(cont.)NormalSalem City HospitalComment on above:Result Comment: Average GFR for 30-39 years old: 107 mL/min/1.73sq m Chronic Kidney Disease: <60 mL/min/1.73sq m Kidney failure: <15 mL/min/1.73sq m eGFR calculated using average adult body mass. Additional eGFR calculator available at: http://www.[employer]/multiple_crcl_2012.htmPerformed By: #### LACDS, TROPI, PRCAL, MYCM #### [facility] [address] [place] [address] 69332 Albumin mass conc2.7 g/dLLow3.5-5.2Mglenbeigh hospitaly [facility] Comment on above:Performed By: #### LACDS, TROPI, PRCAL, MYCM #### [facility] [address] [place] [address] 82021 Albumin/Globulin mass ratio0.8 {ratio}Low1.0-2.5[facility] HospitalComment on above:Performed By: #### LACDS, TROPI, PRCAL, MYCM #### [employer] [address] [place] [address] 55177 Alkaline Phos82 U/AMggqjy95-842MkxfcSalem City Hospital Comment on above:Performed By: #### LACDS, TROPI, PRCAL, MYCM #### [facility] [address] [place] [address] 21725 ALT enzyme act/vol19 U/LNormal5-33[facility] Comment on above:Performed By: #### LACDS, TROPI, PRCAL, MYCM #### [employer] [address] [place] [address] 90666 Anion gap molar conc8 mmol/LLow9-17[facility] Comment on above:Performed By: #### LACDS, TROPI, PRCAL, MYCM #### [employer] [address] [place] [address] 90947 AST enzyme act/vol17 U/LNormal<32[facility] Comment on above:Performed By: #### LACDS, TROPI, PRCAL, MYCM #### [facility] [address] [place] [address] 35084 Bilirubin Ql (U)0.24 mg/dLLow0.3-1.2MSharp [facility] Medical CenterComment on above:Performed By: #### LACDS, TROPI, PRCAL, MYCM #### [facility] [address] [place] [address] 03864 Calcium mass conc8.2 mg/dLLow8.6-10.4[facility] HospitalComment on above:Performed By: #### LACDS, TROPI, PRCAL, MYCM #### [facility] [employer] [address] [place] [address] 86349 Chloride molar mqiw574 mmol/PGmwrab32-458FfcvcSalem City HospitalComment on above:Performed By: #### LACDS, TROPI, PRCAL, MYCM #### [facility] [employer] [address] [place] [address] 10015 CO2 molar conc25 mmol/DRalges22-67DyleiSalem City Hospital Comment on above:Performed By: #### LACDS, TROPI, PRCAL, MYCM #### [facility] [employer] [address] [place] [address] 73481 Creatinine mass conc0.94 mg/dLHigh0.50-0.90[facility] HospitalComment on above:Performed By: #### LACDS, TROPI, PRCAL, MYCM #### [facility] [employer] [address] [place] [address] 94519 GFR, Amer>60Normal>60MerFountain Valley Regional Hospital and Medical CenterComment on above:Performed By: #### LACDS, TROPI, PRCAL, MYCM #### [facility] [employer] [address] [place] [address] 77091 GFR,non Amer>60Normal>60[facility] Comment on above:Performed By: #### LACDS, TROPI, PRCAL, MYCM #### [facility] [address] [place] [address] 88219 Glucose mass shbi206 mg/dLQkmh59-73BwifsSharp [facility] Comment on above:Performed By: #### LACDS, TROPI, PRCAL, MYCM #### [facility] [employer] [address] [place] [address] 11638 Potassium molar conc4.1 mmol/LNormal3.7-5.3MSharp [facility] Vista Medical CenterComment on above:Performed By: #### LACDS, TROPI, PRCAL, MYCM #### [facility] [address] [place] [address] 88636 Protein mass conc6.2 g/dLLow6.4-8.3M[facility] Comment on above:Performed By: #### LACDS, TROPI, PRCAL, MYCM #### [facility] [employer] [address] [place] [address] 11166 Sodium molar daxt846 mmol/AXqprzj825-331ZuuvkSalem City HospitalComment on above:Performed By: #### LACDS, TROPI, PRCAL, MYCM #### [facility] [address] [place] [address] 49024 Urea nitrogen mass conc14 mg/dLNormal6-20[facility] HospitalComment on above:Performed By: #### LACDS, TROPI, PRCAL, MYCM #### [facility] [employer] [address] [place] [address] 73024 BUN/CRE RatioNOT REPORTEDNormal9-20[facility] Comment on above:Performed By: #### LACDS, TROPI, PRCAL, MYCM #### [facility] [address] [place] [address] 72314 Staging:NOT REPORTEDNoPremier Health Miami Valley Hospital NorthComment on above:Performed By: #### LALO, TROPI, PRCAL, MYCM #### [employer] [address] [place] [address] 83540 Magnesiumon 80-18-8565Dsopmkypn mass conc2.3 mg/dLNormal1.6-2.6 [facility] HospitalComment on above:Performed By: #### LACREY, TROPI, PRCAL, MYCM #### [employer] [address] [place] [address] 36878 Vancomycin Troughon 80-44-6444Nttghduurd Lvbcgk05.7 ug/mLNormal 10.0-20.0[facility] HospitalComment on above:Result Comment: Higher trough serum vancomycin concentrations of 15-20 ug/mL are recommended for complicated infections such as bacteremia, endocarditis, osteomyelitis, meningitis, and hospital acquired pneumonia.Performed By: #### LALO, TROPI, PRCAL, MYCM #### [employer] [address] [place] [address] 37568 Date last dose,NOT REPORTEDNoPremier Health [facility] Comment on above:Performed By: #### LALO, TROPI, PRCAL, MYCM #### [employer] [address] [place] [address] 15849 Dose amount,NOT REPORTEDNoPremier Health [facility] Comment on above:Performed By: #### LACREY, TROPI, PRCAL, MYCM #### [employer] [address] [place] [address] 57914 Time last dose,NOT REPORTEDNoPremier Health [facility] Comment on above:Performed By: #### LACREY, TROPI, PRCAL, MYCM #### [employer] [address] [place] [address] [phone]-Klkacvyi Proteinon [id number] mass xvau036.1 mg/LHigh0.0-5.0 [facility] HospitalComment on above:Performed By: #### LALO, DAMIENI, PRCAL, MYCM #### [place] [address] CBC with Diffon [id number]. Basophil0.00 k/uLNormal0.0-0.2MSharp [facility] Medical CenterComment on above:Performed By: #### LALO, TROPI, PRCAL, MYCM #### [facility] [employer] [address] [place] [address] 30598 Abs.Imm.Granulocyte0.13 k/uLNormal0.00-0.30[facility] City HospitalComment on above:Performed By: #### LALO, TROPI, PRCAL, MYCM #### [place] [address] Abs.Neutrophil (Seg)4.35 k/uLNormal1.8-7.7[facility] City HospitalComment on above:Performed By: #### LALO, TROPI, PRCAL, MYCM #### [address] [address] Basophils/100 WBC (Bld)0 %Normal0-2[facility] Comment on above:Performed By: #### LALO, TROPI, PRCAL, MYCM #### [address] [address] Eosinophils #/vol (Bld)0.06 10*3/uLNormal0.0-0.4[facility] City HospitalComment on above:Performed By: #### LALO, TROPI, PRCAL, MYCM #### [facility] [employer] [address] [place] [address] 59495 Eosinophils/100 WBC (Bld)1 %Normal1-4[facility] HospitalComment on above:Performed By: #### LACDS, TROPI, PRCAL, MYCM #### [facility] [employer] [address] [place] [address] 26576 Immature granulocytes #/vol (Bld)2 %Fdzj3UnrxzSalem City HospitalComment on above:Performed By: #### LACDS, TROPI, PRCAL, MYCM #### [facility] [employer] [address] [place] [address] 82249 Lymphocytes #/vol (Bld)1.32 10*3/uLNormal1.0-4.8[facility] HospitalComment on above:Performed By: #### LACDS, TROPI, PRCAL, MYCM #### [facility] [employer] [address] [place] [address] 30066 Lymphocytes/100 WBC (Bld)21 %Cxa41-25WzutdSalem City HospitalComment on above:Performed By: #### LACDS, TROPI, PRCAL, MYCM #### [facility] [employer] [address] [place] [address] 36950 Monocytes #/vol (Bld)0.44 10*3/uLNormal0.1-0.8[facility] HospitalComment on above:Performed By: #### LACDS, TROPI, PRCAL, MYCM #### [facility] [employer] [address] [place] [address] 48694 Monocytes/100 WBC (Bld)7 %Normal1-7[facility] Comment on above:Performed By: #### LACDS, TROPI, PRCAL, MYCM #### [facility] [employer] [address] [place] [address] 09297 Morphology Interp Rehan (Bld)ANISOCYTOSIS PRESENTNormalSalem City HospitalComment on above:Result Comment: INCREASED BANDS PRESENT 1+ TEARDROPSPerformed By: #### LACDS, TROPI, PRCAL, MYCM #### [facility] [employer] [address] [place] [address] 92236 Neutrophil (Seg)69 %Wqny30-80FsbrlSalem City Hospital Comment on above:Performed By: #### LACDS, TROPI, PRCAL, MYCM #### [facility] [employer] [address] [place] [address] 57188 Erythrocyte distribution width Ratio (RBC)14.8 %High11.8-14.4[facility] HospitalComment on above:Performed By: #### LACDS, TROPI, PRCAL, MYCM #### [facility] [employer] [address] [place] [address] 55110 Hematocrit Volume Fraction (Bld)33.3 %Low36.3-47.1M[facility] Medical CenterComment on above:Performed By: #### LACDS, TROPI, PRCAL, MYCM #### [facility] [employer] [address] [place] [address] 87454 Hemoglobin mass conc (Bld)10.2 g/dLLow11.9-15.1M[facility] Medical CenterComment on above:Performed By: #### LACDS, TROPI, PRCAL, MYCM #### [facility] [employer] [address] [place] [address] 84563 MCH Entitic mass (RBC)28.3 hzFgebii00.2-33.5[facility] HospitalComment on above:Performed By: #### LACDS, TROPI, PRCAL, MYCM #### [facility] [employer] [address] [place] [address] 54922 MCHC mass conc (RBC)30.6 g/cRTrwddt82.4-34.8[facility] HospitalComment on above:Performed By: #### LACDS, TROPI, PRCAL, MYCM #### [facility] [employer] [address] [place] [address] 13796 MCV Entitic volume (RBC)92.2 cLYbtjnm89.6-102.9[facility] HospitalComment on above:Performed By: #### LACDS, TROPI, PRCAL, MYCM #### [facility] [address] [place] [address] 773[address] NRBC Automated0.0 per 100 WBCNormal0.0[facility] HospitalComment on above:Performed By: #### LACDS, TROPI, PRCAL, MYCM #### [facility] [address] [place] [address] Platelet mean volume Entitic volume (Bld)11.5 fLNormal8.1-13.5[facility] HospitalComment on above:Performed By: #### LACDS, TROPI, PRCAL, MYCM #### [facility] [employer] [address] [place] [address] Platelets #/vol (Bld)149 10*3/qQEouuwz195-470PsqwdSalem City HospitalComment on above:Performed By: #### LACDS, TROPI, PRCAL, MYCM #### [facility] [employer] [address] [place] [address] 11219 RBC #/vol (Bld)3.61 10*6/uLLow3.95-5.11[facility] HospitalComment on above:Performed By: #### LACDS, TROPI, PRCAL, MYCM #### [facility] [employer] [address] [place] [address] 05609 WBC #/vol (Bld)6.3 10*3/uLNormal3.5-11.3M[facility] Medical CenterComment on above:Performed By: #### LACDS, TROPI, PRCAL, MYCM #### [facility] [employer] [address] [place] [address] 28606 Auto Diff PerformedNOT REPORTEDResearch Medical Center-Brookside CampusalSalem City HospitalComment on above:Performed By: #### LACDS, TROPI, PRCAL, MYCM #### [employer] [address] [place] [address] 02873 Platelets #/vol (Bld)NOT REPORTEDNoPremier Health Miami Valley Hospital NorthComment on above:Performed By: #### LACDS, TROPI, PRCAL, MYCM #### [employer] [address] [place] [address] 33397 RBC morphology finding Nom (Bld)NOT REPORTEDNoPremier Health Miami Valley Hospital NorthComment on above:Performed By: #### LACDS, TROPI, PRCAL, MYCM #### [employer] [address] [place] [address] 29273 WBC MorphologyNOT REPORTEDNoPremier Health [facility] Comment on above:Performed By: #### LACDS, TROPI, PRCAL, MYCM #### [employer] [address] [place] [address] 60145 Comp Metabolic Pr/rfx MGon 08-17-2018(cont.)[facility] NorthComment on above:Result Comment: Average GFR for 30-39 years old: 107 mL/min/1.73sq m Chronic Kidney Disease: <60 mL/min/1.73sq m Kidney failure: <15 mL/min/1.73sq m eGFR calculated using average adult body mass. Additional eGFR calculator available at: http://www.MetaLINCS.com/multiple_crcl_2012.htmPerformed By: #### LACDS, TROPI, PRCAL, MYCM #### [employer] [address] [place] [address] 55950 Albumin mass conc2.4 g/dLLow3.5-5.2[facility] Comment on above:Performed By: #### LACDS, TROPI, PRCAL, MYCM #### [employer] [address] [place] [address] 71785 Albumin/Globulin mass ratio0.7 {ratio}Low1.0-2.5[facility] City HospitalComment on above:Performed By: #### LACDS, TROPI, PRCAL, MYCM #### [facility] [employer] [address] [place] [address] 68267 Alkaline Phos76 U/INktnov67-645UpkdtSalem City Hospital Comment on above:Performed By: #### LACDS, TROPI, PRCAL, MYCM #### [facility] [employer] [address] [place] [address] 93367 ALT enzyme act/vol25 U/LNormal5-33[facility] Comment on above:Performed By: #### LACDS, TROPI, PRCAL, MYCM #### [facility] [employer] [address] [place] [address] 91003 Anion gap molar conc8 mmol/LLow9-17[facility] Comment on above:Performed By: #### LACDS, TROPI, PRCAL, MYCM #### [facility] [employer] [address] [place] [address] 96350 AST enzyme act/vol26 U/LNormal<32[facility] Comment on above:Performed By: #### LACDS, TROPI, PRCAL, MYCM #### [facility] [employer] [address] [place] [address] 16998 Bilirubin Ql (U)0.34 mg/dLNormal0.3-1.2[facility] Medical CenterComment on above:Performed By: #### LACDS, TROPI, PRCAL, MYCM #### [facility] [employer] [address] [place] [address] 73795 Calcium mass conc7.8 mg/dLLow8.6-10.4[facility] HospitalComment on above:Performed By: #### LACDS, TROPI, PRCAL, MYCM #### [facility] [employer] [address] [place] [address] 90281 Chloride molar conc99 mmol/ODqxclk50-408PcyokSalem City HospitalComment on above:Performed By: #### LACDS, TROPI, PRCAL, MYCM #### [facility] [address] [place] [address] 96029 CO2 molar conc23 mmol/BYiiszi56-60NfppnSalem City Hospital Comment on above:Performed By: #### LACDS, TROPI, PRCAL, MYCM #### [facility] [employer] [address] [place] [address] 48085 Creatinine mass conc1.04 mg/dLHigh0.50-0.90[facility] HospitalComment on above:Performed By: #### LACDS, TROPI, PRCAL, MYCM #### [facility] [employer] [address] [place] [address] 17007 GFR, Amer>60Normal>60[facility] HospitalComment on above:Performed By: #### LACDS, TROPI, PRCAL, MYCM #### [facility] [employer] [address] [place] [address] 57582 GFR,non Amer59 mL/minLow>60[facility] Comment on above:Performed By: #### LACDS, TROPI, PRCAL, MYCM #### [facility] [employer] [address] [place] [address] 66326 Glucose mass wteh273 mg/pXLpwf70-99[facility] Comment on above:Performed By: #### LACDS, TROPI, PRCAL, MYCM #### [facility] [employer] [address] [place] [address] 78062 Potassium molar conc3.8 mmol/LNormal3.7-5.3[facility] Medical CenterComment on above:Performed By: #### LACDS, TROPI, PRCAL, MYCM #### [facility] [employer] [address] [place] [address] 02342 Protein mass conc5.8 g/dLLow6.4-8.3[facility] Comment on above:Performed By: #### LACDS, TROPI, PRCAL, MYCM #### [facility] [employer] [address] [place] [address] 95566 Sodium molar zdeo930 mmol/OJvq928-572WjqgaSalem City HospitalComment on above:Performed By: #### LACDS, TROPI, PRCAL, MYCM #### [facility] [employer] [address] [place] [address] 12114 Urea nitrogen mass conc15 mg/dLNormal6-20[facility] HospitalComment on above:Performed By: #### LACDS, TROPI, PRCAL, MYCM #### [facility] [employer] [address] [place] [address] 09456 BUN/CRE RatioNOT REPORTEDNormal9-20[facility] Comment on above:Performed By: #### LACDS, TROPI, PRCAL, MYCM #### [facility] [employer] [address] [place] [address] 56107 Staging:NOT REPORTEDNormalSalem City HospitalComment on above:Performed By: #### LACDS, TROPI, PRCAL, MYCM #### [address] [address] Magnesiumon 05-88-5203Xxvfyqmip mass conc2.2 mg/dLNormal1.6-2.6 [facility] HospitalComment on above:Performed By: #### LACDS, TROPI, PRCAL, MYCM #### [facility] [employer] [address] [place] [address] 66717 Procalcitoninon 03-39-9770Jrnzphl mass conc1.48 ng/mLHigh<0.09Sal[facility] City HospitalComment on above:Result Comment: Suspected Sepsis: 0.09-0.49 [...] entered into the Change in Procalcitonin Calculator (www.xfhjil-ovw-cmaoxexkxj.[facility]) to determine the patient's Mortality Risk PrognosisPerformed By: #### GRACE MAY PRCAL, MYCM #### [employer] [address] [place] [address] Sedimentation Rateon 92-95-7248Qeadwxolyqefz Rate97 mmHigh0-20[facility] HospitalComment on above:Performed By: #### GRACE MAY PRCAL, MYCM #### [employer] [address] [place] [address] CBC with Diffon [id number]. Basophil0.00 k/uLNormal0.00-0.20 [facility] HospitalComment on above:Performed By: #### GRACE MAY PRCAL, JAZMYN #### [employer] [address] [place] [address] Abs.Imm.Granulocyte0.11 k/uLNormal0.00-0.30[facility] HospitalComment on above:Performed By: #### GRACE MAY PRCAL, MYCM #### [employer] [address] [place] [address] Abs.Neutrophil (Seg)4.60 k/uLNormal1.50-8.10[facility] HospitalComment on above:Performed By: #### GRACE MAY PRCAL, MYCM #### [facility] [address] [place] [address] 96310 Basophils/100 WBC (Bld)0 %Normal0-2[facility] Comment on above:Performed By: #### LACDS, TROPI, PRCAL, MYCM #### [address] [address] Eosinophils #/vol (Bld)0.00 10*3/uLNormal0.00-0.44[facility] HospitalComment on above:Performed By: #### LACDS, TROPI, PRCAL, MYCM #### [facility] [employer] [address] [place] [address] 91137 Eosinophils/100 WBC (Bld)0 %Low1-4[facility] Comment on above:Performed By: #### LACDS, TROPI, PRCAL, MYCM #### [facility] [employer] [address] [place] [address] 47942 Immature granulocytes #/vol (Bld)2 %Fdbq6EpbqjSalem City HospitalComment on above:Performed By: #### LACDS, TROPI, PRCAL, MYCM #### [facility] [employer] [address] [place] [address] 56785 Lymphocytes #/vol (Bld)0.67 10*3/uLLow1.10-3.70[facility] HospitalComment on above:Performed By: #### LACDS, TROPI, PRCAL, MYCM #### [facility] [employer] [address] [place] [address] 58089 Lymphocytes/100 WBC (Bld)12 %Lxz03-04ZgkbeSalem City HospitalComment on above:Performed By: #### LACDS, TROPI, PRCAL, MYCM #### [facility] [employer] [address] [place] [address] 44251 Monocytes #/vol (Bld)0.22 10*3/uLNormal0.10-1.20[facility] HospitalComment on above:Performed By: #### LACREY, TROPI, PRCAL, MYCM #### [employer] [address] [place] [address] 88184 Monocytes/100 WBC (Bld)4 %Normal3-12[facility] HospitalComment on above:Performed By: #### LACDS, TROPI, PRCAL, MYCM #### [employer] [address] [place] [address] 97316 Morphology Interp Rehan (Bld)ANISOCYTOSIS PRESENTNormalSalem City HospitalComment on above:Result Comment: INCREASED BANDS PRESENT 1+ TEARDROPSPerformed By: #### LACREY, TROPI, PRCAL, MYCM #### [employer] [address] [place] [address] 08735 Neutrophil (Seg)82 %Eeff80-57EptqlSalem City Hospital Comment on above:Performed By: #### LACREY, TROPI, PRCAL, MYCM #### [employer] [address] [place] [address] 21265 Erythrocyte distribution width Ratio (RBC)15.1 %High11.8-14.4[facility] HospitalComment on above:Performed By: #### LACDS, TROPI, PRCAL, MYCM #### [employer] [address] [place] [address] 98567 Hematocrit Volume Fraction (Bld)34.1 %Low36.3-47.1M[facility] Medical CenterComment on above:Performed By: #### LACDS, TROPI, PRCAL, MYCM #### [employer] [address] [place] [address] 09383 Hemoglobin mass conc (Bld)10.0 g/dLLow11.9-15.1MercOrlando Health St[facility] Cloud HospitalLinden Medical CenterComment on above:Performed By: #### LACDS, TROPI, PRCAL, MYCM #### [facility] [employer] [address] [place] [address] MCH Entitic mass (RBC)28.7 piNmshjf12.2-33.5[facility] HospitalComment on above:Performed By: #### LACDS, TROPI, PRCAL, MYCM #### [facility] [employer] [address] [place] [address] MCHC mass conc (RBC)29.3 g/lPRyvzdp09.4-34.8[facility] HospitalComment on above:Performed By: #### LACDS, TROPI, PRCAL, MYCM #### [facility] [employer] [address] [place] [address] MCV Entitic volume (RBC)98.0 fCLlggqo15.6-102.9[facility] HospitalComment on above:Performed By: #### LACDS, TROPI, PRCAL, MYCM #### [place] [address] NRBC Automated0.0 per 100 WBCNormal0.0[facility] HospitalComment on above:Performed By: #### LACDS, TROPI, PRCAL, MYCM #### [place] [address] Platelet mean volume Entitic volume (Bld)11.1 fLNormal8.1-13.5[facility] HospitalComment on above:Performed By: #### LACDS, TROPI, PRCAL, MYCM #### [place] [address] Platelets #/vol (Bld)119 10*3/lNCwz632-555SixynSalem City HospitalComment on above:Performed By: #### LACDS, TROPI, PRCAL, MYCM #### [employer] [address] [place] [address] 23704 RBC #/vol (Bld)3.48 10*6/uLLow3.95-5.11[facility] Medical CenterComment on above:Performed By: #### LACDS, TROPI, PRCAL, MYCM #### [employer] [address] [place] [address] 04605 WBC #/vol (Bld)5.6 10*3/uLNormal3.5-11.3[facility] Medical CenterComment on above:Performed By: #### LACDS, TROPI, PRCAL, MYCM #### [employer] [address] [place] [address] 23086 Auto Diff PerformedNOT REPORTEDSelect Medical Specialty Hospital - [facility] NorthComment on above:Performed By: #### LACDS, TROPI, PRCAL, MYCM #### [employer] [address] [place] [address] 08732 Platelets #/vol (Bld)NOT REPORTEDSelect Medical Specialty Hospital - [facility] NorthComment on above:Performed By: #### LACDS, TROPI, PRCAL, MYCM #### [employer] [address] [place] [address] 62158 RBC morphology finding Nom (Bld)NOT REPORTEDSelect Medical Specialty Hospital - [facility] NorthComment on above:Performed By: #### LACDS, TROPI, PRCAL, MYCM #### [employer] [address] [place] [address] 60555 WBC MorphologyNOT REPORTEDSelect Medical Specialty [facility] North Comment on above:Performed By: #### LACDS, TROPI, PRCAL, MYCM #### [employer] [address] [place] [address] HEAD WO CONTRASTon [id number] HEAD WO CONTRASTEXAMINATION: CT OF THE HEAD [...] Signed by: Erica Angeles MD 08/16/18 Final resultNormalSalem City HospitalCalcium, Ionicon 08-16-2018 Calcium mass conc0.99 mmol/LLow1.13-1.33[facility] City HospitalComment on above:Performed By: #### LACDS, TROPI, PRCAL, MYCM #### [employer] [address] [place] [address] 43608 Comp Metabolic Pr/rfx MGon 08-16-2018(cont.)NormalSalem City HospitalComment on above:Result Comment: Average GFR for 30-39 years old: 107 mL/min/1.73sq m Chronic Kidney Disease: <60 mL/min/1.73sq m Kidney failure: <15 mL/min/1.73sq m eGFR calculated using average adult body mass. Additional eGFR calculator available at: http://www.MetaLINCS.com/multiple_crcl_2012.htmPerformed By: #### PT, CMPX, MG, CDP #### [employer] [facility] [place] [address] Albumin mass conc2.3 g/dLLow3.5-5.2[facility] Comment on above:Performed By: #### PT, CMPX, MG, CDP #### [facility] [employer] [address] [place] [address] 33505 Albumin/Globulin mass ratio0.7 {ratio}Low1.0-2.5[facility] HospitalComment on above:Performed By: #### PT, CMPX, MG, CDP #### [facility] [employer] [address] [place] [address] 24864 Alkaline Phos67 U/MVzqcyb56-648QfxjhSalem City Hospital Comment on above:Performed By: #### PT, CMPX, MG, CDP #### [facility] [employer] [address] [place] [address] 40951 ALT enzyme act/vol33 U/LNormal5-33[facility] Comment on above:Performed By: #### PT, CMPX, MG, CDP #### [facility] [employer] [address] [place] [address] Anion gap molar conc11 mmol/LNormal9-17[facility] HospitalComment on above:Performed By: #### PT, CMPX, MG, CDP #### [facility] [employer] [address] [place] [address] 35823 AST enzyme act/vol41 U/LHigh<32[facility] Comment on above:Performed By: #### PT, CMPX, MG, CDP #### [facility] [employer] [address] [place] [address] Bilirubin Ql (U)0.40 mg/dLNormal0.3-1.2[facility] Medical CenterComment on above:Performed By: #### PT, CMPX, MG, CDP #### [facility] [employer] [address] [place] [address] 36605 Calcium mass conc7.3 mg/dLLow8.6-10.4[facility] HospitalComment on above:Performed By: #### PT, CMPX, MG, CDP #### [facility] [employer] [address] [place] [address] 60886 Chloride molar vbky030 mmol/JPhdson97-911DfbjzSalem City HospitalComment on above:Performed By: #### PT, CMPX, MG, CDP #### [facility] [employer] [address] [place] [address] 39833 CO2 molar conc18 mmol/PUte92-55HdkhnSalem City Hospital Comment on above:Performed By: #### PT, CMPX, MG, CDP #### [facility] [address] [place] [address] 09252 Creatinine mass conc1.09 mg/dLHigh0.50-0.90[facility] HospitalComment on above:Performed By: #### PT, CMPX, MG, CDP #### [facility] [employer] [address] [place] [address] GFR, Amer>60Normal>60[facility] HospitalComment on above:Performed By: #### PT, CMPX, MG, CDP #### [facility] [address] [place] [address] 15593 GFR,non Amer56 mL/minLow>60[facility] Comment on above:Performed By: #### PT, CMPX, MG, CDP #### [facility] [address] [place] [address] 53674 Glucose mass vxkg314 mg/rSIish84-00JrbhtSharp [facility] Comment on above:Performed By: #### PT, CMPX, MG, CDP #### [facility] [address] [place] [address] 58465 Potassium molar conc3.6 mmol/LLow3.7-5.3M[facility] Medical CenterComment on above:Performed By: #### PT, CMPX, MG, CDP #### [facility] [address] [place] [address] 07847 Protein mass conc5.5 g/dLLow6.4-8.3[facility] Comment on above:Performed By: #### PT, CMPX, MG, CDP #### [facility] [employer] [address] [place] [address] 28586 Sodium molar ggua534 mmol/UGab367-611KjikjSalem City HospitalComment on above:Performed By: #### PT, CMPX, MG, CDP #### [facility] [employer] [address] [place] [address] 38194 Urea nitrogen mass conc17 mg/dLNormal6-20[facility] HospitalComment on above:Performed By: #### PT, CMPX, MG, CDP #### [facility] [employer] [address] [place] [address] 55285 BUN/CRE RatioNOT REPORTEDNoal9-20[facility] Comment on above:Performed By: #### PT, CMPX, MG, CDP #### [facility] [employer] [address] [place] [address] 36007 Staging:NOT REPORTEDNormalSalem City HospitalComment on above:Performed By: #### PT, CMPX, MG, CDP #### [facility] [employer] [address] [place] [address] 34861 Lactic Acid,Whole Blon 40-01-3686Zktlwa Acid,Whole Bl1.2 mmol/L Normal0.7-2.1MSharp [facility] Medical CenterComment on above:Performed By: #### LACDS, TROPI, PRCAL, MYCM #### [facility] [employer] [address] [place] [address] 74318 Lactic Acid,Whole Bl1.2 mmol/LNormal0.7-2.1[facility]on Medical CenterComment on above:Performed By: #### LACWB #### [address] [address] Magnesiumon 24-27-1952Rbqaonkbo mass conc2.0 mg/dLNormal1.6-2.6 [facility] HospitalComment on above:Performed By: #### LACDS, TROPI, PRCAL, MYCM #### [address] [address] Mycoplasma Ab,IgMon 86-30-7358Oipyomazkk Ab,IgM0.22Normal<0.91Sal[facility] City HospitalComment on above:Result Comment: Reference Range: <=0.90 Negative 0.91-1.09 Equivocal >=1.10 PositivePerformed By: #### LACDS, TROPI, PRCAL, MYCM #### [address] [address] PTon 36-66-2392GCM Coag RelTime (PPP)1.0 {INR}NormalSalem City HospitalComment on above:Result Comment: Therapeutic Range: Moderate Anticoagulant Intensity: INR = 2.0-3.0 High Anticoagulant Intensity: INR = 2.5-3.5Performed By: #### PT, CMPX, MG, CDP #### [address] [address] Prothrombin time (PT) Coag time (PPP)11.0 sNormal9.0-12.0[facility] City HospitalComment on above:Performed By: #### PT, CMPX, MG, CDP #### [address] [address] Troponinon 12-68-2629Upcvqxnu I.cardiac mass concNormalSalem City HospitalComment on above:Result Comment: Reference Range: <0.03 Within reference range. 0.03-0.09 Possible myocardial damage. Repeat at appropriate intervals to rule out chronic elevation. >= 0.10 Indicative of myocardial damage. Patients with high levels of Biotin oral intake (i.e >5mg/day) may have falsely decreased Troponin T levels. Samples collected within 8 hours of biotin intake may require additional information for diagnosis.Performed By: #### TROPI #### [address] [address] Troponin I.cardiac mass concng/mLNormal<0.03[facility] City HospitalComment on above:Result Comment: Troponin T results cannot be compared to Troponin-I results.Performed By: #### TROPI #### [address] [address] XR CHEST (2 VW)on 86-07-7596LP CHEST (2 VW)EXAMINATION: TWO VIEWS OF THE [...] Signed by: Noe Mitchell MD 08/16/18 Final resultNormalMerFountain Valley Regional Hospital and Medical CenterLactate, Sepsison 08-15-2018 Lactic Acid,Sep Wbld3.5 mmol/LHigh0.5-1.9[facility] City HospitalComment on above:Performed By: #### LACDS, TROPI, PRCAL, MYCM #### [address] [address] Lactic Acid, SepsisNOT REPORTEDNormal0.5-1.9[facility] HospitalComment on above:Performed By: #### LACDS, TROPI, PRCAL, MYCM #### [address] [address] Legionella Ag, Uron 49-04-8394Radfscisao Ag, UrSpecimen Description .CLEAN CATCH URINE Special [...] levels of this test. Report Status FINAL 08/15/2018NoPremier Health Miami Valley Hospital NorthComment on above:Performed By: #### ULAG #### [employer] [address] [place] [address] Procalcitoninon 19-43-4363Crudaso mass conc3.39 ng/mLHigh<0.09Sal[facility] City HospitalComment on above:Result Comment: Suspected Sepsis: 0.09-0.49 [...] entered into the Change in Procalcitonin Calculator (www.npepog-ufd-wgqiaonnvo.[facility]) to determine the patient's Mortality Risk PrognosisPerformed By: #### LACDS, TROPI, PRCAL, MYCM #### [employer] [facility] [place], [place] [id number] Strep pneum Ag,CSF/Uron 69-99-7126Hblwi pneum Ag,CSF/UrSpecimen Description .CLEAN CATCH URINE Special Requests NOT REPORTED Direct Exam NEGATIVE: Strep pneumoniae antigen not detected Report Status FINAL 08/15/2018[facility] NorthComment on above:Performed By: #### SPAG #### [employer] [address] [place] [address] [id number] Troponinon 58-35-2681Bfpdgbsi I.cardiac mass concng/mLNormal<0.03 [facility] City HospitalComment on above:Result Comment: Troponin T results cannot be compared to Troponin-I results.Performed By: #### LACDS, TROPI, PRCAL, MYCM #### [employer] [address] [place], [place] [id number] Troponin I.cardiac mass concNormalMercy Seton Medical Center Comment on above:Result Comment: Reference Range: <0.03 [...] By: #### LACDS, TROPI, PRCAL, MYCM #### [employer] [address] [place], [place] [address] Urinalysison 25-43-9331Yicjkmsrq, UrineNegativeInvalid Interpretation CodeNEG;NEGATIVETRIHEALTH GOOD SAMARITAN HOSPITALBlood, UrineModerate AbnormalNEG;NEGATIVETRIHEALTH GOOD SAMARITAN HOSPITALInterpretation and review of laboratory resultsAbnormalInvalid Interpretation CodeTRIHEALTH GOOD SAMARITAN HOSPITALNitrite, UrineNegativeInvalid Interpretation CodeNEG;NEGATIVETRIHEALTH GOOD SAMARITAN HOSPITALProtein, UrineNegativeInvalid Interpretation CodeNEG;NEGATIVE mg/dLTRIHEALTH GOOD SAMARITAN HOSPITALRBCs, Urine1 /HPFInvalid Interpretation Code0 - 5[facility]OSPITALquamous Epithelial< 1Invalid Interpretation Code0 - 40 /HPFSouthern Ohio Medical Center, bacteria in sedimentRare Invalid Interpretation CodeNS;RARE /HPFTRIHEALTH GOOD SAMARITAN HOSPITALUrine, characterHazyInvalid Interpretation CodeSouthern [facility] Medical Center, colorYellowInvalid Interpretation CodeSouthern [facility] Medical Center, glucose presenceNegativeInvalid Interpretation CodeNEG;NEGATIVE mg/dLSouthern Ohio Medical Center, ketones presenceNegativeInvalid Interpretation Code NEG;NEGATIVE mg/dLTRIHEALTH GOOD SAMARITAN HOSPITALUrine, leukocyte esterase presenceSmallAbnormalNegativeTRIHEALTH GOOD SAMARITAN HOSPITALUrine, pH6.0 [pH] Invalid Interpretation Code4.5 - 8.0TRIHEALTH GOOD SAMARITAN HOSPITALUrine, specific gravity1.014 1Invalid Interpretation Code1.003 - 1.029TRIHEALTH GOOD SAMARITAN HOSPITALUrobilinogen, Urine< 2.0Invalid Interpretation Code<2 mg/dLTRIHEALTH GOOD SAMARITAN HOSPITALWBCs, Urine6 /HPFHigh0 - 5[facility] HOSPITALCBC and Differentialon 74-89-8608Bzdqysokw2.7 %Invalid Interpretation CodeTRIHEALTH GOOD SAMARITAN HOSPITALBasophils0.1 K/mcLInvalid Interpretation Code0 - 0.2TRIHEALTH GOOD SAMARITAN HOSPITALEosinophils0.2 K/mcLInvalid Interpretation Code0 - 0.5 TRI[facility] SAMARITAN HOSPITALErythrocytes (RBC)3.97 M/mcLInvalid Interpretation Code3.7 - 5.0TRIHEALTH GOOD SAMARITAN HOSPITALHematocrit (HCT)35.7 %Invalid Interpretation Code34.4 - 44.8 %[facility] HOSPITALHemoglobin (HGB) 12.2 g/dLInvalid Interpretation Code11.6 - 15.4 g/dLTRIHEALTH GOOD SAMARITAN HOSPITALInterpretation and review of laboratory resultsAbnormalInvalid Interpretation CodeTRIHEALTH GOOD SAMARITAN HOSPITALLymphocytes2.1 K/mcLInvalid Interpretation Code1.0 - 3.7[facility] HOSPITALH30.6 pgInvalid Interpretation Code27.9 - 33.9 pgTRIHEALTH GOOD SAMARITAN HOSPITALMCHC34.0 g/dL Invalid Interpretation Code33.1 - 35.1 g/dLTRIHEALTH GOOD SAMARITAN HOSPITALMCV89.8 fLInvalid Interpretation Code82.6 - 98.9TR[facility] SAMARITAN HOSPITALMonocytes 0.6 K/mcLInvalid Interpretation Code0.1 - 0.6[facility] Neutrophils6.6 K/mcLInvalid Interpretation Code1.2 - 6.9TR[facility] SAMARITAN HOSPITALPlatelet mean volume (PMV)8.6 fLInvalid Interpretation Code7.0 - 10.6 [facility] HOSPITALPlatelets196 K/mcLInvalid Interpretation Vlfz986 - 402OHST. MARY'S MEDICAL CENTERRDW-CA15.0 %High10 - 14.4 %[facility]ERGER HOSPITALegmented Neut69.6 %Invalid Interpretation CodeLUIS [place]IL[place] [address] suppressor/100 cells1.8 10*3/uLInvalid Interpretation CodeLUIS VILLE [address] suppressor/100 cells21.8 10*3/uLInvalid Interpretation Code [place] [address] suppressor/100 cells6.1 10*3/uLInvalid Interpretation CodeTRIHEALTH GOOD SAMARITAN HOSPITALWBC (Leukocytes)9.5 K/mcLInvalid Interpretation Code3.4 - 10.6TR[facility]HEALTH GOOD SAMARITAN HOSPITALComprehensive Metabolic Panelon 56-79-8972Wtmmpdr aminotransferase (ALT)18 U/LInvalid Interpretation Code14 - 65 U/[facility]ISBURGAlbumin3.1 g/dLLow3.2 - 5.2 g/dLTRIHEALTH GOOD SAMARITAN HOSPITALAlkaline phosphatase (ALP)78 U/LInvalid Interpretation Code40 - 140 U/[facility]ALTH MIAMISBURGAspartate aminotransferase (AST)7 U/LInvalid Interpretation Code0 - 45 U/[facility]BURGCalcium8.6 mg/dLInvalid Interpretation Code8.4 - 10.2 mg/dL [facility] HOSPITALChloride106 mmol/LInvalid Interpretation Code98 - 108 mmol/[facility]GCO227 mmol/LInvalid Interpretation Code21 - 32 mmol/[facility]AMISBURGCreatinine1.13 mg/dLHigh0.4 - 1.1 mg/dL [facility] HOSPITALeGFR (black)mL/min/{1.73_m2}Invalid Interpretation Codeml/min/1.73sq.Memorial HospitaleGFR (non-black)54 mL/min/{1.73_m2}Low>60[facility]OSPITALGlucose113 mg/sTAucj49 - 99 mg/dLTRIHEALTH GOOD SAMARITAN HOSPITALInterpretation and review of laboratory resultsAbnormalInvalid Interpretation CodeTRIHEALTH GOOD SAMARITAN HOSPITALPotassium 3.7 mmol/LInvalid Interpretation Code3.5 - 5.1 mmol/[facility]GProtein6.8 g/dLInvalid Interpretation Code6 - 8 g/dLOHIOHEALTH BERGER HOSPITALodium140 mmol/LInvalid Interpretation Ddvv105 - 145 mmol/[facility]AMISBURGUrea unwgfinm96 mg/dLInvalid Interpretation Code8 - 25 mg/dL [facility] HOSPITALUrine, bilirubin presence0.4 mg/dLInvalid Interpretation Code0.3 - 1.2 mg/dLTRIHEALTH GOOD SAMARITAN HOSPITALLipaseon 82-39-4552Arytgq390 U/LInvalid Interpretation Code73 - 393 U/[facility] Vital Signs Date TimeVital SignValuePerforming ExjbyuzgvJjsubqip94-86-3299 11:47-0400Body thezxu558.5 cmJennie Van MULE DEVELOPER-SENIOR ELECTRICAL PROJECT MANAGER Work Phone: [place] [phone] 11:47-0400Body mass index (BMI) [Ratio]38.41 kg/r2XostjcqJennie Van MULE DEVELOPER-SENIOR ELECTRICAL PROJECT MANAGER Work Phone: [place] [phone] 11:47-0400Body .25 kgJecarlos Van MULE DEVELOPER-SENIOR ELECTRICAL PROJECT MANAGER Work Phone: [place] [phone] 11:47-0400Diastolic blood sqokiriz65 mm[Hg]Jennie Van MULE DEVELOPER-SENIOR ELECTRICAL PROJECT MANAGER Work Phone: [place] [phone] 11:47-0400Respiratory rate18 /minJesssandeep Van MULE DEVELOPER-SENIOR ELECTRICAL PROJECT MANAGER Work Phone: [place] [phone] 11:47-0445DqQ8% (BldA) [Mass fraction]98 %Jennie Van MULE DEVELOPER-SENIOR ELECTRICAL PROJECT MANAGER Work Phone: [place] [phone] 11:47-0400Systolic blood elzawjid007 mm[Hg]Jennie Van MULE DEVELOPER-SENIOR ELECTRICAL PROJECT MANAGER Work Phone: [facility] SpringfieldTtrlfqqvyc98-75-7556 12:32-0400Body uinfts535.5 Bihristophmichael Sánchez DPM Work Phone: [facility] SpringfieldDqdhqbuszo70-18-2505 12:32-0400Body mass index (BMI) [Ratio]38.41 kg/v3Mmtqmzwnlmk Bohach DPM Work Phone: [facility] SpringfieldAadvqmmnsq30-78-2196 12:32-0400Body .25 kgChristopher Bohach DPM Work Phone: [facility] SpringfieldGktymlrhip05-57-2604 12:32-0400Diastolic blood vxharnlz52 mm[Hg]Christopher Bohach DPM Work Phone: [facility] SpringfieldWudnlsghoc20-66-5064 12:32-0400Heart eksu618 /min Christopher Bohach DPM Work Phone: [facility] SpringfieldQconvuydvk12-14-1796 12:32-0400Systolic blood gyyrdfpw672 mm[Hg]Christopher Bohach DPM Work Phone: [facility] SpringfieldAmnxclwvbi70-46-3290 16:21-0400Body rwaaht780.5 cmChristopher Bohach DPM Work Phone: [facility] SpringfieldQzwikdlxuh42-67-5022 16:21-0400Body mass index (BMI) [Ratio]38.41 kg/b9Sgcsdfvzqby Bohach DPM Work Phone: [facility] SpringfieldVmkavdoboa71-54-4414 16:21-0400Body kwunxb42.25 kgChristopher Bohach DPM Work Phone: [facility] SpringfieldHbhybpjqcp98-48-7614 16:21-0400Diastolic blood uxgszffm21 mm[Hg]Christopher Bohach DPM Work Phone: [facility] SpringfieldMqtatteqsr28-48-2006 16:21-0400Heart rate89 /min Christopher Bohach DPM Work Phone: [facility] SpringfieldAvviyizpwu97-47-8984 16:21-0400Systolic blood ywiicurx340 mm[Hg]Christopher Bohach DPM Work Phone: [facility] SpringfieldWtiocpjmxs88-13-8847 23:15-0400Diastolic blood lhmyjuuk74 mm[Hg]Severo Case MD Work Phone: [phone] [facility] Medical CenterElevate [facility] HospitalTfnzvo70-63-0134 23:15-0400Heart rate74 /minSevero Case MD Work Phone: [phone] [facility] CenterElevate [facility] HospitalKubcxk97-83-1146 23:15-0400 Respiratory rate16 /minSevero Case MD Work Phone: [phone]07-01-2025 23:15-1301UuP6% (BldA) [Mass fraction]97 %Severo Case MD Work Phone: [phone]07-01-2025 23:15-0400Systolic blood mzeevswq161 mm[Hg]Severo Case MD Work Phone: [phone]07-01-2025 21:24-0400Body .4 cmSevero Case MD Work Phone: [phone]07-01-2025 21:24-0400Body mass index (BMI) [Ratio]41.99 kg/x8HezbjgSevero Case MD Work Phone: [phone] [facility] CenterElevate [facility] Memorial HospitalJigbte73-48-6562 21:24-0400Body fzmvil73.52 kgSevero Case MD Work Phone: [phone]07-01-2025 21:15-0400Body bvupaqsonfi17 [degF]Severo Case MD Work Phone: [phone]06-10-2025 12:02-0400Body pbpavs238.5 cmLynn Block MD Work Phone: [facility] SpringfieldQcqvpssiyz35-58-4543 12:02-0400Body mass index (BMI) [Ratio]38.41 kg/m2Lynn Block MD Work Phone: [facility] SpringfieldKvbqobsljz04-58-1740 12:02-0400Body ahhail70.25 kgLynn Block MD Work Phone: [phone] [place], [place] [address]Eecztxswyl36-01-7233 13:00-0500Body ofciph051.5 cmLynn Block MD Work Phone: [facility] SpringfieldVvevrtobmz11-48-0497 13:00-0500Body mass index (BMI) [Ratio]38.41 kg/m2Lynn Block MD Work Phone: [facility] SpringfieldKsfekqcyau08-20-1919 13:00-0500Body qwaeqt38.25 kgLynn Block MD Work Phone: [phone] [place], [place] [address]Qczicxdgia75-98-2343 11:31-0500Body .5 cmFealli Yusra CLIENT BUSINESS MANAGER Work Phone: [phone] [place], [place] [address]Gkzjmvmxna39-64-1623 11:31-0500Body mass index (BMI) [Ratio]37.9 kg/z0Gennafp Megannagel CLIENT BUSINESS MANAGER Work Phone: [phone] [place], [place] [address]Mtfsigkzfc54-82-0332 11:31-0500Body exmtjt70.98 kgFemadelynia Megannagel CLIENT BUSINESS MANAGER Work Phone: [phone] [place], [place] [address]Vvnhaxsfbv98-96-4933 11:31-0500Diastolic blood zhtqigki51 mm[Hg]Fozia Megannagel CLIENT BUSINESS MANAGER Work Phone: [phone] [place], [place] [address]Hzrixlvpjq44-46-3776 11:31-0500Systolic blood mgeagotu974 mm[Hg]Fozia Megannagel CLIENT BUSINESS MANAGER Work Phone: [phone] [place], [place] [address]Qbytblzjex66-46-0328 09:42-0500Body ulmcsf501.5 Jimmy Adair MD Work Phone: [phone]hrkgz96-42-1927 09:42-0500Body mass index (BMI) [Ratio]38.23 kg/m2Dimas Adair MD Work Phone: [phone]agqwq04-19-1732 09:42-0500Body fagkwuisrki07.29 [degF]Dimas Adair MD Work Phone: [phone]qpzyz46-91-6222 09:42-0500Body tirkhr16.8 kgDimas Adair MD Work Phone: [phone]mlikn34-69-1102 11:30-0500Body .5 cm Fozia Meng CLIENT BUSINESS MANAGER Work Phone: [facility] SpringfieldKpherkfuzm65-03-8198 11:30-0500Body mass index (BMI) [Ratio]39.91 kg/o8YfsqzziFozia Meng CLIENT BUSINESS MANAGER Work Phone: [facility] SpringfieldTbzfybtamk44-85-6249 11:30-0500Body rgmzoc37.97 kgFozia Meng CLIENT BUSINESS MANAGER Work Phone: [facility] SpringfieldGwdtpskybu52-23-3646 11:30-0500Diastolic blood efoqdjww42 mm[Hg]Fozia Meng CLIENT BUSINESS MANAGER Work Phone: [facility] SpringfieldWrzwgzzaqy90-90-5388 11:30-0500Systolic blood mm[Hg]Fozia Meng CLIENT BUSINESS MANAGER Work Phone: [facility] SpringfieldAibscvxcsb74-98-2736 10:09-0400Body lppohz979.5 cmTrace Casas MD Work Phone: [facility] SpringfieldDptobtbgwl47-80-1371 10:09-0400Body mass index (BMI) [Ratio]38.96 kg/u1EbrywycTrace Casas MD Work Phone: [facility] SpringfieldCmqayrsdoq82-34-9727 10:09-0400Body saapxk28.62 kgTrace Casas MD Work Phone: [facility] SpringfieldYkuawgqbey89-58-7617 10:09-0400Diastolic blood tfvdpxsu72 mm[Hg]Trace Casas MD Work Phone: [facility] SpringfieldRcalhiwzbz42-38-9186 10:09-0400Systolic blood pxkyvefb090 mm[Hg]Trace Casas MD Work Phone: [facility] SpringfieldVdvsdcnkue42-32-0908 14:20-0400Body .5 cmNicole Ginger DO Work Phone: [facility]OP[facility] SystemsNrvmrhcuml48-61-5496 14:20-0400Body mass index (BMI) [Ratio]38.41 kg/h6Lmggac Ginger DO Work Phone: [facility]OPemisc[facility] SystemsTlwnkajuth42-17-6244 14:20-0400Body zkecjc48.25 kgNicole Ginger DO Work Phone: [facility]OPemisc[facility] SystemsMkvweeqilf37-11-9405 14:20-0400Diastolic blood rfrnqjja71 mm[Hg]Cheryl Ginger DO Work Phone: [facility]OPem[facility] SystemsNzxyvnftcq93-90-0742 14:20-0400Heart rate83 /min Cheryl Ginger DO Work Phone: [facility]OPemisc[facility] SystemsTgooxuivzj95-21-5822 14:20-6042XrQ0% (BldA) [Mass fraction]97 %Cheryl Ginger DO Work Phone: noPemiscot Memorial Health SystemsZidcodhsmj05-49-8057 14:20-0400Systolic blood xwnfajrp431 mm[Hg]Cheryl Ginger DO Work Phone: [facility] SpringfieldAojegspnyo47-74-0416 14:44-0400Body temperature 98.49 [degF]MASSIMO Shook DPM Work Phone: [phone]fdxam61-77-4529 14:44-0400Diastolic blood kmptbwes61 mm[Hg]MASSIMO Shook DPM Work Phone: [phone]cjsok94-36-3109 14:44-0400Heart rate94 /minMASSIMO Shook DPM Work Phone: [phone]kzeqi04-91-6851 14:44-0400Systolic blood pressure 139 mm[Hg]MASSIMO Shook DPM Work Phone: [phone]diiux05-50-5119 09:36-0400Body hjgohl859.5 cmMwhz Education Work Phone: bon [employer]09-28-2022 09:36-0400Body mass index (BMI) [Ratio]38.67 kg/m2Mwhz Education Work Phone: bon [employer]09-28-2022 09:36-0400Body czyrtv04.89 kgMwhz Education Work Phone: bon [facility]12-13-2020 20:53-0500BMI (Body Mass Index)39.32 kg/r5IgntkzrthjaHenderson, [place]12-13-2020 20:53-0500Body Retfdukriws86.5 [degF][place] 09-16-2020 20:53-0500Body ynbhmc02.52 kgH[place] 09-16-2020 20:53-0500BP Hhnrpzsit146 mm[Hg][place] 09-16-2020 20:53-0500BP Hqnxyydg804 mm[Hg][place] 09-16-2020 20:53-2080Uujpxs434.5 [place], [place] 09-16-2020 20:53-0500Pulse (Heart Rate)99 /minH[place], [place]12-[place]-2020 20:53-0500Pulse Pveqwmhq45 %[place] 09-16-2020 20:53-0500Respiratory Rate18 /minDown [facility], [place] Encounters Encounter DateEncounter TypeCare ProviderFacilityStart: 08-02-2025 End: 53-45-8455hojvrznjewIVHIKCleveland Clinic Marymount Hospitaltart: 08-02-2025 End: 83-19-5204Plhnvyjgyu hospital visit by physicianRome Memorial Hospitaluzair Laboratory Schedule [facility] LaboratoryComment on above:Stage 3a chronic kidney disease (HCC); Pre-diabetesStart: 07-29-2025 End: 23-16-1350EgupydYdukpxkkdbSara Allen NP Work Phone: NOV[facility] [place] NeurologyComment on above:Idiopathic progressive polyneuropathy; Non-seasonal allergic rhinitis due to pollenStart: 07-21-2025 End: 45-75-3114cazjvrmqasPBSYRCDUFormerly Self Memorial Hospitaltart: 07-21-2025 End: 35-63-7242Skqjttgzeh hospital visit by physicianB[facility] Laboratory Schedule [facility] LaboratoryComment on above:ArrivedStart: 06-12-2025 End: 42-70-3415hpiayrfvteBHGKOERVXG MILLERMercy Willard HospitalStart: 06-12-2025 End: 52-64-4200Zmrhpaugrb hospital visit by physicianKendall Laboratory Schedule [facility] LaboratoryComment on above:ArrivedStart: 05-24-2025 End: 93-90-3931Kyuwsn DatometryheetCyanto MULE DEVELOPER-SENIOR ELECTRICAL PROJECT MANAGER Work Phone: noms NEUROLOGYStart: 05-24-2025 End: 27-32-6172Aooogb DatometryheetCyanto MULE DEVELOPER-SENIOR ELECTRICAL PROJECT MANAGER Work Phone: noms NEUROLOGYStart: 05-24-2025 End: 63-18-2413wnnclkhhcuPAYJNWM SPRINGERColumbia Regional Hospital AvailableStart: 05-24-2025 End: 10-89-9379Scnstp outpatient visit 25 minutesJeTigerlily MULE DEVELOPERSc[employer] Products Work Phone: noms [place] NeurologyComment on above:BUCK (obstructive sleep apnea) (Primary Dx); Cervical paraspinal muscle spasm; Cervical radiculopathyStart: 05-23-2025 End: 73-00-1347Fctbfyxlb encounterMark Trista Block MD Work Phone: noms [facility] 111Start: 05-15-2025 End: 65-31-7658nbczczfmutUVZPA D [facility] SSDtart: 05-15-2025 End: 30-64-3811Aeqwdycfdb hospital visit by physicianKendall Laboratory Schedule [facility] LaboratoryComment on above:ArrivedStart: 04-20-2025 End: 35-16-7584Jbohli flowsTeresa Sánchez DPM Work Phone: noms [facility] PODIATRYStart: 04-20-2025 End: 86-74-9734Bahxiiame Sánchez DPM Work Phone: noms [facility] PODIATRYStart: 04-20-2025 End: 00-51-6196Ukwdjg outpatient visit 25 minutesRobbin Sánchez DPM Work Phone: noms [facility] PODIATRYComment on above:MRSA (methicillin resistant staph aureus) culture positive (Primary Dx); Right foot pain; Skin ulcer of toe of right foot with fat layer exposed (HCC); Idiopathic progressive polyneuropathy; Infection of toe; Charcot arthropathy of midfoot; Ulcer of left foot, limited to breakdown of skin (HCC); Closed nondisplaced fracture of second metatarsal bone of right foot, initial encounterStart: 04-20-2025 End: 86-81-2608rdjojibghzJGOSHBWFXKR J BOHACHNot AvailableStart: 04-14-2025 End: 85-42-6635gbvpdysmutIDKKWDank Powell HospitalStart: 04-14-2025 End: 62-50-5301Xgjilvqvtg hospital visit by Paola Adam MD Work Phone: mZ LaboratoryComment on above:Hyperglycemia; Mixed hyperlipidemia; Chronic renal impairment, stage 3a ([facility])Start: 04-12-2025 End: 88-14-6378Yfqnmauvf Result EncounterChriskyle Sánchez DPM Work Phone: noms External Department UnsolicitedStart: 04-12-2025 End: 15-04-3106Wsyffiiek Result EncounterChjorge Sánchez DPM Work Phone: noms External Department UnsolicitedStart: 04-11-2025 End: 18-76-6889Iesysdtxu Result EncounterChjorge Sánchez DPM Work Phone: noms External Department UnsolicitedStart: 04-11-2025 End: 97-00-7451Kbmrtzfgy Result EncounterChriskyle Sánchez DPM Work Phone: noms External Department UnsolicitedStart: 04-11-2025 End: 26-57-1299akgwiledjwGSAFMZFHDEWWiley Powell HospitalStart: 04-11-2025 End: 22-93-5994Usoxddnxhv hospital visit by Anisha Sánchez DPM Work Phone: [facility] SystemComment on above:Pain in right footStart: 04-06-2025 End: 96-31-8019Qlwbhm outpatient visit 25 minutesChjorge Sánchez DPM Work Phone: noms WWW PODIATRYComment on above:Right foot pain (Primary Dx); Skin ulcer of toe of right foot with fat layer exposed (HCC); Infection of toe; Idiopathic progressive polyneuropathy; Generalized edemaStart: 04-06-2025 End: 20-43-0778elpaehzbeuCWFCJIXXTNR J BOHACHNot AvailableStart: 04-06-2025 End: 27-26-9281Jznmqg flowsTeresa Sánchez DPM Work Phone: noms [facility]W PODIATRYStart: 04-06-2025 End: 74-47-5092Sizypa Batsheva Sánchez DPM Work Phone: noms [facility]W PODIATRYStart: 04-04-2025 End: 53-83-8443Mkuswtdco department patient visitSevero Case MD Work Phone: [facility] Emergency DepartmentComment on above: Pressure injury of deep tissue of toe, unspecified laterality (Primary Dx)Start: 03-14-2025 End: 90-42-9474Cvcpuoame Block MD Work Phone: noms NEUROLOGYStart: 03-14-2025 End: 31-60-7247Swgxzeame Block MD Work Phone: noms NEUROLOGYStart: 03-14-2025 End: 77-42-4038Vsybpc outpatient visit 25 minutesLynn Block MD Work Phone: noms S[facility] NEUR BComment on above:BUCK (obstructive sleep apnea) (Primary Dx); Claustrophobia ; HypersomniaStart: 03-14-2025 End: 44-84-4562onjykxndmbPITB D BEJNot AvailableStart: 02-15-2025 End: 78-95-1327nvpkxttyjwUTGQO [facility] Hospitaltart: 02-15-2025 End: 31-35-2587Syzfmrvnic hospital visit by Paola Adam MD Work Phone: [facility] MammographyComment on above: Encounter for screening mammogram for malignant neoplasm of breastStart: 64-49-9687pklwtnakqiBlxcspkn:FTMCStart: 02-13-2025 End: 12-01-2620Sllsdn Therese Casas MD Work Phone: noms NEUROLOGYStart: 02-13-2025 End: 09-39-7802Bwakvs Therese Casas MD Work Phone: noms NEUROLOGYStart: 02-13-2025 End: 00-25-8518vrodwzlzdsDNIBRTI W BAUERNot AvailableStart: 02-13-2025 End: 46-88-2871Elahto outpatient visit 25 minutesTrace Casas MD Work Phone: noms SWS NEURComment on above:Charcot's joint, left ankle and foot (Primary Dx); Gait instability; Idiopathic progressive polyneuropathy; Intractable 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 (CMS/HCC); Restless legs; Carpal tunnel syndrome, bilateral; BUCK (obstructive sleep apnea)Start: 12-06-2024 End: 18-52-3376Tvhvci Magen Block MD Work Phone: noms NEUROLOGYStart: 12-06-2024 End: 64-62-4202Sdrkmb Magen Block MD Work Phone: noms NEUROLOGYStart: 12-06-2024 End: 95-16-9881dkcubpiruoEXMP D BEJNot AvailableStart: 12-06-2024 End: 33-50-3882Esfgqa outpatient new 60 minutesLynn Block MD Work Phone: [facility] NEUR BComment on above:BUCK (obstructive sleep apnea) (Primary Dx); BUCK on CPAP; Claustrophobia (CMS/HCC)Start: 11-14-2024 End: 36-02-3064Wsqxyr flowsheetFelicia C Windnagel CLIENT BUSINESS MANAGER Work Phone: noms BM NEUROLOGYStart: 11-14-2024 End: 72-40-7911Giiwzt flowsheetFelicia C Windnagel CLIENT BUSINESS MANAGER Work Phone: noms BM NEUROLOGYStart: 11-14-2024 End: 19-19-2612Nroopn outpatient visit 25 minutesFelicia Jamila Guzmannagel CLIENT BUSINESS MANAGER Work Phone: noms SWS NEURComment on above:BUCK on CPAP (Primary Dx); Idiopathic progressive polyneuropathy; Restless legs; Intractable 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 (CMS/HCC) Start: 11-14-2024 End: 53-87-3057eorhooguodQTTCDKR C JAIMEEGELNot AvailableStart: 11-14-2024 End: 33-87-9571jycnvozhjcEJWPI BACKSelect Medical [facility] Clinic Rehabilitation Hospital, Edwin Shawtart: 11-14-2024 End: 88-48-3139Mzqixpyspk hospital visit by Paola Adam MD Work Phone: mZ LaboratoryComment on above:Pre-diabetes; Mixed hyperlipidemiaStart: 11-02-2024 End: 39-67-6343Cdhtrjdgi encounterJanel Allen CLIENT BUSINESS MANAGER Work Phone: noms [facility] NEURO 210Start: 10-11-2024 End: 12-75-7056Qmzphi outpatient new 45 minutesBilrubens Adam MD Work Phone: [facility] Throat PhysiciansComment on above:Thyroid nodule (Primary Dx); Lipoma of neckStart: 10-11-2024 End: 47-14-7680phfbepqpyyQXGML BACKOhio Health AmbulatoryStart: 10-05-2024 End: 47-53-7148FsyzonAcdrnwq W Bauer MD Work Phone: noms SWS NEURComment on above:Idiopathic progressive polyneuropathy; Non-seasonal allergic rhinitis due to pollenStart: 09-14-2024 End: 62-65-0633Mbixxr flowsheetFelicia C Megannashena CLIENT BUSINESS MANAGER Work Phone: noms BM NEUROLOGYStart: 09-14-2024 End: 75-33-0107Bkszbl flowsheetFemadelynia Jamila Meng CLIENT BUSINESS MANAGER Work Phone: noms BM NEUROLOGYStart: 09-14-2024 End: 25-98-2980Hjaljmtof encounterFelicvirgen Meng CLIENT BUSINESS MANAGER Work Phone: noms [facility] NEURO 210Start: 09-14-2024 End: 28-75-3255Zqarnl outpatient visit 25 minutesFelicvirgen Meng CLIENT BUSINESS MANAGER Work Phone: noms SWS NEURComment on above:BUCK on CPAP (Primary Dx); Idiopathic progressive polyneuropathy; Intractable 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 (CMS/HCC); Restless legs; Bilateral carpal tunnel syndromeStart: 09-14-2024 End: 65-40-9314siaxhgwknhVFZEUOT Jamila YUSRANot AvailableStart: 09-09-2024 End: 66-18-7448Nfvpmowwpo OrdersFelicia Bangmt. sinai hospitalt [facility] Systemeal ENT [place]landComment on above:Thyroid nodule (Primary Dx)Start: 09-06-2024 End: 06-95-2488rmgrdlcunaJZFPCSelect Medical Cleveland Clinic Rehabilitation Hospital, Avontart: 09-06-2024 End: 31-92-1268Lmdkpuivuj hospital visit by physicianFelipe Adam MD Work Phone: [facility] UltrasoundComment on above: Thyroid noduleStart: 08-11-2024 End: 19-14-8018ElgrufOqwlfce W Bauer MD Work Phone: noms SWS NEURComment on above:Idiopathic progressive polyneuropathy; Non-seasonal allergic rhinitis due to pollenStart: 06-10-2024 End: 68-09-7227Utzcks Therese Casas MD Work Phone: noms BM NEUROLOGYStart: 06-10-2024 End: 17-18-4400Hulvyc Therese Casas MD Work Phone: noms BM NEUROLOGYStart: 06-10-2024 End: 85-91-2122Apymzl outpatient visit 25 minutesTrace Casas MD Work Phone: noms [facility] NEURComment on above:Idiopathic progressive polyneuropathy (Primary Dx); Bilateral carpal tunnel syndrome; Restless legs; Intractable 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 (CMS/HCC) Start: 06-10-2024 End: 96-98-6253uoplbfelflAWGZNFV W BAUERNot AvailableStart: 05-10-2024 End: 48-77-9465Sqkhtxjzay hospital visit by Paola Adam MD Work Phone: mwhZ LaboratoryStart: 05-10-2024 End: 64-70-5066Uewfol outpatient visit 40 minutesNicole Ginger DO Work Phone: noms WNZ NEUROComment on above:BUCK (obstructive sleep apnea); Hypersomnia; Snoring; Class 2 obesity due to excess calories with body mass index (BMI) of 38.0 to 38.9 in adult, unspecified whether serious comorbidity presentStart: 02-15-2024 End: 19-13-3771ozvidhrsykZukhs D HighlanderFacility:Veter[facility] Health Administrationtart: 02-15-2024 End: 86-94-3323tsbrabchuzAST [facility] Work Phone: [facility] Work Phone: Start: 02-15-2024 End: 79-14-9157Pzowtrwb ReferredDP [facility] Work Phone: [facility]-LAB Path Spec [place] HospStart: 06-15-2023 End: 04-89-4639Womkgvpnsy hospital visit by Paola Adam MD Work Phone: mWHZ LaboratoryComment on above:Mixed hyperlipidemia Start: 68-80-7067uhgniatxztNZVMZLima City Hospital PhysiciansStart: 03-03-2023 End: 32-78-8088Zkcmnp outpatient new 45 minutesMASSIMO Shook DPM Work Phone: [facility] Physicians GroupComment on above:Charcot arthropathy of midfoot (Primary Dx); Gastrocnemius equinus, unspecified laterality; Foot pain, leftStart: 02-11-2023 End: 43-14-9011qskzrxhyhwVBTQU D HIGHLANDERFacility:I8Dijrf: 02-05-2023 End: 73-65-8612Kzyygjqzte hospital visit by Paola Adam MD Work Phone: mZ LaboratoryComment on above:Pelvic pressure in femaleStart: 02-04-2023 End: 87-78-0866dujpuzemxlUMGEG D [facility] MEDICAL CENTERANDERFacility:U8Lbtiw: 01-28-2023 End: 84-05-4177idphowigmzLIPCU D [facility] MEDICAL CENTERANDERFacility:J2Noeiz: 01-06-2023 End: 57-70-1077Nmhfiimox department patient visitMontefiore Nyack Hospitaltart: 07-09-2022 End: 52-67-2468Hwgxlgunhs hospital visit by JOE Rod RD Work Phone: mZ Diet and NutritionComment on above:ArrivedStart: 07-02-2022 End: 12-28-6068Qisyjuvqiy hospital visit by Efren Diabetes Education Work Phone: mWHZ Diabetic EducationStart: 06-25-2022 End: 57-33-5537Rxrpwmnvxz hospital visit by physicianTennille Additional [facility] RadiologyComment on above:Foreign body (FB) in soft tissue Start: 06-25-2022 End: 43-42-5732Cjkbhfrwrb hospital visit by [facility] Mri Scanner [facility] MRIComment on above:Pain of foot, unspecified laterality; Closed nondisplaced fracture of second metatarsal bone of left foot, initial encounter; Closed nondisplaced fracture of lateral cuneiform of left foot, initial encounterStart: 05-27-2022 End: 69-20-5251Ypanugbqzl hospital visit by physicianRome [facility] Hospital Ultrasound Room [facility] UltrasoundComment on above:Neck massStart: 04-28-2022 End: 43-87-4679cdancofbtdCEBXNB S GOINESMercy [facility] Cardon Children's Medical Centertart: 04-28-2022 End: 83-21-7851Muyifeeleu hospital visit by Paola Adam MD Work Phone: MALZ LABORATORYComment on above:Acute cystitis with hematuriaStart: 04-12-2022 End: 87-56-0730Tjzmtswyqg hospital visit by Paola Adam MD Work Phone: mWHZ LaboratoryComment on above:Fatigue, unspecified type; Encounter for screening for HIV; Mixed hyperlipidemia; Hyperglycemia; Chronic renal impairment, stage 3b (HCC)Start: 02-05-2022 End: 58-79-3104Cxektewfzb hospital visit by Kaylah PAYTON Physical TherapyStart: 02-04-2022 End: 35-76-7638Csevned encounter procedureUniversity Hospitals [facility] Ctr-MRI Strub RdStart: 02-03-2022 End: 64-94-2252Odmljjbghm hospital visit by Bradley Johnson Physical TherapyStart: 01-29-2022 End: 66-32-4173Tdtvylgwyp hospital visit by Ivan VIGIL Physical TherapyComment on above:ArrivedStart: 01-27-2022 End: 18-59-4165Lfqchckcmr hospital visit by Kaylah PAYTON Physical TherapyComment on above:ArrivedStart: 01-24-2022 End: 10-77-9345Lkvhxyerco hospital visit by Jojo GREENZ Physical TherapyComment on above:ArrivedStart: 01-22-2022 End: 71-83-4196Fjmkfvnqyl hospital visit by Ivan VIGIL Physical TherapyStart: 01-17-2022 End: 69-88-9896Hkoiqovbcs hospital visit by Ivan VIGIL Physical TherapyComment on above:ArrivedStart: 01-13-2022 End: 28-07-2820Ifigpgmchq hospital visit by Kaylah PAYTON Physical TherapyStart: 01-03-2022 End: 46-54-5274Uwdwuinhbp hospital visit by Ivan Rangel PTAMWHZ Physical TherapyComment on above:ArrivedStart: 12-31-2021 End: 02-53-0976Ifisarnqxu hospital visit by Renetta Herman OTMWHUzair Occupational TherapyComment on above:ArrivedStart: 12-30-2021 End: 32-25-2860Qxhzkqcfpp hospital visit by Renetta Herman OTMASSENA MEMORIAL HOSPITALUzair Occupational TherapyComment on above:ArrivedStart: 12-23-2021 End: 88-20-6318Yrlfxzedup hospital visit by Renetta Herman OTMASSENA MEMORIAL HOSPITALUzair Occupational TherapyComment on above:ArrivedStart: 11-29-2021 End: 39-90-5666tndsyfkocwOUXBFNorthridge Medical Centertart: 08-01-2021 End: 14-48-1607Tbbyuwrnkr hospital visit by Paola Adam MD Work Phone: mK LaboratoryComment on above:Frequent UTI; Urinary urgency; Urinary frequencyStart: 07-11-2021 End: 49-43-6766Jaggpijgel hospital visit by Paola Adam MD Work Phone: mwhz LaboratoryComment on above:Frequent UTI; Urinary urgency; Urinary frequencyStart: 06-11-2021 End: 96-95-1977Jkpkkzkjmr hospital visit by Paola Adam MD Work Phone: mwhz LaboratoryComment on above:Acute cystitis with hematuria; Recurrent UTIStart: 05-27-2021 End: 72-23-5589Fjjbwzyulx hospital visit by Paola Adam MD Work Phone: mwhz LaboratoryComment on above:Difficult or painful urinationStart: 05-20-2021 End: 18-14-0312Wyhnxhiuxk hospital visit by Paola Adam MD Work Phone: mwhz LaboratoryStart: 04-13-2021 End: 68-99-1954Nysdzalbbg hospital visit by Paola Adam MD Work Phone: mwhz LaboratoryComment on above:Acute cystitis with hematuriaStart: 02-13-2021 End: 74-68-7844Ltuaeabknc hospital visit by physicianRome [facility] Hospital Andriy19 Pat Screening ScheduleMWHZ PRE ADMITComment on above:Suspected COVID-19 virus infectionStart: 01-21-2021 End: 94-94-4155Ymtrphvqnp hospital visit by physicianRome Memorial Hospital Covid19 Pat Screening ScheduleMWHZ PRE ADMITComment on above:Viral illnessStart: 11-15-2020 End: 43-69-3798Hgfpcsszmc hospital visit by physicianRome Memorial Hospital Covid19 Pat Screening ScheduleMWHZ PRE ADMITComment on above:ArrivedStart: 09-16-2020 End: 95-08-8793Hlyjdioip department patient visitChjorge Rooney Work Phone: [facility] EDComment on above:Acute thoracic back pain, unspecified back pain laterality (Primary Dx)Start: 08-24-2020 End: 26-96-6352Hnsmwlzsfw hospital visit by physicianYalobusha General Hospitalrubens AdamMASSENA MEMORIAL HOSPITALUzair Laboratory Comment on above:Epidural abscessStart: 08-08-2020 End: 47-81-5547Tupbvezhhh hospital visit by physicianYalobusha General Hospitalrubens AdamMASSENA MEMORIAL HOSPITALUzair Laboratory Comment on above:SOB (shortness of breath)Start: 07-24-2020 End: 91-28-3966Xvrxcrdzzg hospital visit by physicianU[facility] BackMASSENA MEMORIAL HOSPITALUzair Laboratory Comment on above:Epidural abscessStart: 06-07-2020 End: 10-71-2012Xqwseawcem hospital visit by physicianU[facility] BackNEP[facility] Laboratory Start: 05-25-2020 End: 07-49-7570Fwgnigkxkg hospital visit by physicianU[facility] BackMASSENA MEMORIAL HOSPITALUzair Laboratory Comment on above:Vitamin D deficiency; Mixed hyperlipidemia; HyperglycemiaStart: 12-14-2019 End: 30-43-0771Myuarkudtx hospital visit by physicianU[facility] BackMASSENA MEMORIAL HOSPITALUzair Laboratory Comment on above:MRSA (methicillin resistant Staphylococcus aureus) septicemia (HCC)Start: 09-24-2019 End: 65-33-8845Bqalmvepfc hospital visit by Paola Adam MD Work Phone: MAS[facility] HOSPITALZ LaboratoryStart: 09-12-2019 End: 49-96-5794Pmfmuxqazk hospital visit by physicianBilly Back MD Work Phone: MWHZ SLEEP LABStart: 08-29-2019 End: 61-05-0528Xazmytlqcp hospital visit by [facility] Schedule [facility] SLEEP LABComment on above:ArrivedStart: 07-28-2019 End: 62-16-6337Bjnauvsixm hospital visit by Kong Campos [facility] RadiologyComment on above:MRSA (methicillin resistant Staphylococcus aureus) septicemia (HCC)Start: 06-17-2019 End: 80-32-8135Jnnnqxgpgf hospital visit by Paola Pappas Laboratory Comment on above:MRSA (methicillin resistant Staphylococcus aureus) infection Start: 02-03-2019 End: 75-91-5128Ogfyuxn encounter procedureMEM[facility]IAL [facility] Jone [facility] Start: 02-03-2019 End: 26-25-7560Jcjofmzpad hospital visit by Nilesh Casas Work Phone: [facility] MRIComment on above: Brachial neuritis; Peripheral nerve disorder; Spasm of muscleStart: 11-10-2018 End: 14-70-1371Bglwyhm encounter procedureAndrey EarlyFacility:[place] Start: 10-18-2018 End: 89-42-7499Xeaqkpt encounter procedureAndrey Early Work Phone: [facility] HospitalStart: 97-97-8686Dzqpsor encounter procedureLuis NiecyiFacility:[place]Start: 10-03-2018 End: 16-86-0097Wgnrzfc encounter procedureFelipe [facility] HospitalStart: 09-20-2018 End: 95-04-8817Udqvgen encounter procedureLuis E NiecyiFacility:[facility] HospitalStart: 53-98-4969Ypaqrkg encounter procedureFacility:[id number]: 05-12-1720Ibggmga encounter procedureLUIS E [facility] HospitalStart: 09-06-2018 End: 60-59-4267Jidtexw encounter procedureHistorical [facility] REG Start: 08-31-2018 End: 40-49-9272Smtjpxy encounter procedureHistorical [facility] REG Start: 08-27-2018 End: 83-41-7393Lvcgecq encounter procedureLuis E NiecyiFacility:[facility] HospitalStart: 56-72-2684Eszyiiy encounter procedureFacility:[id number]: 08-15-2018 End: 32-53-0636Jujvibjvqv and management of inpatientWABRENDA Schafer [facility] Hospitaltart: 04-02-2018 End: 16-56-6183Jlpqfep encounter procedureJosophie CalderonFacility:[place]Start: 41-75-0798Zuivujj encounter procedureMelmalcom Jose ManuelFacility:[facility] Centerart: 02-04-2018 End: 48-57-2421WrkchcqpjsPuxjmv Trista Ushaclaxton-hep[facility] HospitalStart: 06-45-7003Nvnodnc encounter procedureTERBrock MONTGOMERY GENERAL HOSPITALanuelRehabilitation Hospital of South Jerseytart: 11-17-2017 End: 08-24-4300CpszwhjeupQlebqdwp Rings Work Phone: [facility] Hospitaltart: 10-20-2017 End: 80-46-9137KzyedcszkdRBXJGJZDAKSHA Nevarez [facility] Centertart: 09-70-9092Tozevjx encounter procedureTERBarnesville Hospitaltart: 83-87-9794NsqbbxjedhJSIJRTCarrie Tingley Hospitaltart: 10-09-2017 End: 37-52-5230Ddklfzv encounter procedureTEROur Lady of [facility] Start: 49-47-3113Puboerd encounter procedureTEROur Lady of Mercy [facility] Start: 86-94-1762JeqvoebsupODDHGJCarrie Tingley Hospitaltart: 03-31-2017 End: 54-18-4345FiffhmnnvbUBKDOOBCHASE Meirno [facility] Procedures DateProcedureProcedure DetailPerforming ClinicianStart: 16-13-6367Rawyo metabolic panel calcium totalBilly Back Work Phone: start: 16-43-6293Uxqly metabolic panel calcium total Damon PROCTOR Work Phone: Start: 32-37-6090N-reactive proteinKiharshal Segura PA Work Phone: Start: 01-60-9174Yfgyx function panelJadanny Samson CLIENT BUSINESS MANAGER-C Work Phone: Start: 61-42-4386Pvdkv metabolic panel calcium total Peter D [facility] Centerjoanie DPM Work Phone: Start: 85-61-6573A-reactive proteinPeter D [facility] DPM Work Phone: Start: 87-60-1034JTEXXGZWLC CHECKPeter D [facility] DPM Work Phone: Start: 14-09-9598Uulfyqdclvkku metabolic panelBilly Back Work Phone: start: 91-46-8069Nhjbn panelBilly Back Work Phone: start: 51-86-4475RFM FOOT RIGHT W WO CONTRAST Robbin Sánchez DPM Work Phone: Start: 06-94-7541Hjm lower extrem oth/thn jt w/o & w/contr matrChristopher Adam Sánchez DPM Work Phone: Start: 23-03-7566Odrqy of urea nitrogen quantitative Robbin Sánchez DPM Work Phone: Start: 09-04-7200SEKB BUN + CREATININEChristopher Adam Sánchez DPM Work Phone: Start: 65-07-7831Okgxblzfiy examination foot 2 views Robbin Sánchez DPM Work Phone: Start: 04-04-2025 End: 85-21-0054Qwblg toe minimum 2 viewsSevero Case MD Work Phone: Start: 23-79-5047A-reactive proteinSevero Case MD Work Phone: Start: 04-04-2025 End: 23-82-1761Oqudsrbchbt peptideSevero Case MD Work Phone: Start: 13-34-0475Jmaslkstfkwuw metabolic panelBilly Back Work Phone: start: 55-01-4505Nayhs Jignesh Adam MD Work Phone: start: 96-33-1481Mt soft tissue head & neck real time ramesh Adam MD Work Phone: start: 42-94-3654Ajpyb function panelScatrina Forbes MD Work Phone: Start: 68-28-3977Qrbak dip stick/tablet rgnt auto w/o microscopySwdomenica Forbes MD Work Phone: Start: 22-03-5856Lunaa Jignesh Adam MD Work Phone: start: 39-93-2582Cnteqmzv Susan Cassidy DPM Work Phone: Start: 40-62-2284Xdx prim src wet mount nfct agtLuis Mclean PA-C Work Phone: Start: 33-63-4783Qvi lower extrem oth/thn jt w/o & w/contr matrChristopher J Bohbobby DPM Work Phone: Start: 11-13-7737Etgxynqniw examination foot 2 views Micky Lauren MD Work Phone: Start: 82-98-1197Bs soft tissue head & neck real time ramesh Adam MD Work Phone: start: 25-21-2527Rlvuomfoupwvh metabolic Jignesh Adam MD Work Phone: start: 17-26-1452Xiype Jignesh Adam MD Work Phone: start: 26-04-4044ZD lumbar spine wo conStart: 68-32-2428EO pre/post mri xrayStart: 17-94-7816Oboqfjyjbsf observation [Identifier] in Cervix by Cyto stainMwhz Education Work Phone: Start: 44-86-7901Wfbwr dip stick/tablet reagent auto microscopyThomas Desi MELENDREZ Work Phone: Start: 27-96-3528Zhriq dip stick/tablet reagent auto microscopyThomas Desi MELENDREZ Work Phone: Start: 61-47-4325Ravxohwthoy panelGregory Forbes MD Work Phone: Start: 91-31-1993Dbefc dip stick/tablet rgnt auto w/o microscopyGregory Forbes MD Work Phone: Start: 76-46-7573VTYZW-19Wendy Meka Hull MULE DEVELOPER - SENIOR ELECTRICAL PROJECT MANAGER Work Phone: Start: 84-73-8043LDGTY-Luis E Hartman Work Phone: Start: 77-39-9649Ruppr dip stick/tablet rgnt auto w/o microscopyChjorge Rooney Work Phone: Start: 09-16-2020 End: 84-50-9329Pgbib count complete auto&auto difrntl wbcChjorge Rooney Work Phone: Start: 73-94-6997Nrcakylfszwbp rate rbc automated Robbin Rooney Work Phone: Start: 84-17-5582Vyvph count complete auto&auto difrntl wbcLuis E Hartman Work Phone: Start: 38-26-1024K-reactive proteinLuis E Hartman Work Phone: Start: 93-12-5644Wjhzdludwlgix rate rbc automatedLuis E Hartman Work Phone: Start: 91-78-0367Jnmvx count complete auto&auto difrntl wbcLuis E Hartman Work Phone: Start: 00-88-6964V-reactive proteinLuis E Hartman Work Phone: Start: 24-64-9821Dsolhjphurgys rate rbc automatedLuis E Hartman Work Phone: Start: 67-51-7151Rvxozaw total xcpt refractometry urineHeather Forbes Work Phone: Start: 08-32-6246Evpxt dip stick/tablet rgnt auto w/o microscopyHeather Forbes Work Phone: Start: 59-28-295807 hydroxy includes fractions if performedBilly Back Work Phone: start: 95-31-4335Vdurrxsrdzeyt metabolic panelBilly Back Work Phone: start: 10-08-1561Xmpamswtcu glycosylated o5dDmgcg Back Work Phone: start: 95-37-5113Bktnd panelBilly Back Work Phone: start: 18-55-8604Vyeuyinkfqo direct measurement ldl cholesterolBilly Back Work Phone: start: 22-29-0145RAWHASI FASTING?Felipe Back Work Phone: start: 01-58-3771P-reactive proteinNora Longthorne Work Phone: Start: 98-94-9780Tjfwrzttrz glycosylated a8dOfurjpzncg Mónica Sawyeri MULE DEVELOPER - SENIOR ELECTRICAL PROJECT MANAGER Work Phone: Start: 27-79-0509NUEKHYH B12 & FOLATEJacsanta Harmonianharinder MULE DEVELOPER - SENIOR ELECTRICAL PROJECT MANAGER Work Phone: Start: 18-15-9057Jgckz spine cervical 4 or 5 viewsNora Longthorne Work Phone: Start: 44-88-1765Tlfvd count complete auto&auto difrntl wbcNora Longthorne MULE DEVELOPER - SENIOR ELECTRICAL PROJECT MANAGER Work Phone: Start: 51-54-8641C-reactive proteinNora Longthorne MULE DEVELOPER - SENIOR ELECTRICAL PROJECT MANAGER Work Phone: Start: 14-49-6365Unsjjer serum plasma/whole blood Heather Forbes Work Phone: Start: 13-00-0471Nodbl of magnesiumHeather Forbes Work Phone: Start: 62-04-3992Mveew of phosphorus inorganicSwdomenica Forbes Work Phone: Start: 48-29-8936Kcwnb of urea nitrogen quantitative Heatherwoody Forbes Work Phone: Start: 65-73-3660Hfecs count hemoglobinSwdomenica Forbes Work Phone: Start: 05-56-7544Rpuyqgd totalSwapwoody Forbes Work Phone: Start: 84-40-4386Cqjiudmnkkn panelSwapna Andrei Work Phone: Start: 69-10-5951Gxjtiwd total xcpt refractometry urineSwdomenica Forbes Work Phone: Start: 70-82-3576Yducfowivq microscopic onlySwdomenica Forbes Work Phone: Start: 36-56-4034Aadzu dip stick/tablet rgnt auto w/o microscopySwdomenica Forbes Work Phone: Start: 07-07-7077O-reactive proteinLuis E Hartman Work Phone: Start: 23-70-2882Gwfrtyjrkyefi rate rbc automatedLuis E Hartman Work Phone: Start: 27-33-0107PFO of cervical spine without contrastExternal TranscribedStart: 10-03-2018 End: 72-99-2106Jwkypllczxo examination of blood, cultureLuis JaureguiComment on above:Performed By: #### BC #### Unless otherwise noted, all testing performed by [place] [id number] CLIA: [id number] Professor Of Public Administration: Harshad Solano M.D.Start: 09-06-2018 End: 65-58-6119HXLI (OUTSIDE)Historical ProviderStart: 08-31-2018 End: 92-45-7131BHBS (OUTSIDE)Historical ProviderStart: 89-73-6805XZ CONSULT TO HOME CARE NEEDSWABRENDA MARYtart: 59-71-9703Zmomr of magnesiumWASEEDIN CASASANStart: 92-82-8389Iqshn metabolic panel calcium totalWASEEM YESSENIAANStart: 73-62-4806Dfrur count complete auto&auto difrntl wbcWASEEM YESSENIAtart: 88-57-5532Vipknxkemjqjv (pct)JV MARYrt: 36-96-8351XSMYIPWSE PATIENTWASEEM YESSENIAtart: 08-25-2018 PULSE OXIMETRY, CONTINUOUSWASEEM YESSENIAANStart: 14-96-8836RBJUTC PICC LINEWASEEM YESSENIAANStart: 30-01-0381PMJQDZKKNNWVV NURSING CARE ORDER (SPECIFY)JV MARYrt: 50-07-2557NRQ ORDER FOR WALKER OPWASEEM YESSENIAANStart: 12-00-5595GHQUW OXIMETRY, CONTINUOUSWASEEM EYSSENIAANStart: 22-88-6409XSSYFD PHYSICIAN (SPECIFY)JV APPLE Start: 64-94-5022UQICABW COMMUNICATIONWASEEM YESSENIAtart: 97-99-2408DCHUP CANNULA OXYGENWASEEM YESSENIAtart: 19-88-8037HZPATFESV SPIROMETRY RTWASEEM tart: 10-68-0577APOTJZDL OXYGEN THERAPY PROTOCOLWA YESSENIArt: 67-53-9205CSXEP OXIMETRY, CONTINUOUSWASEEM YESSENIAANStart: 61-27-0908Hrnub of magnesiumJV APPLE Start: 81-26-7858Ncppj metabolic panel calcium totalWASEEM USMANtart: 08-25-2018 Blood count complete auto&auto difrntl wbcWASEEM YESSENIAANStart: 10-13-5843NYWSN OXIMETRY, CONTINUOUSWASEEM YESSENIAANStart: 85-65-7915FWEEY OXIMETRY, CONTINUOUSWASEEM KHANStart: 41-60-2580SNCSS OXIMETRY, CONTINUOUSWASEEM KHANStart: 58-65-8379HBUZ GENERALWASEEM YESSENIAANStart: 07-24-2366ZL EVAL AND TREATWASEEM YESSENIAANStart: 24-10-7246QU EVAL AND TREATWASEEM YESSENIAANStart: 26-57-7040DCPOV OXIMETRY, CONTINUOUSWASEEM YESSENIAANStart: 93-88-0517BABUR OXIMETRY, CONTINUOUSWABRENDA APPLE Start: 55-15-8214IJCWZSQFS SPIROMETRY RTDIGNITY HEALTH EAST VALLEY REHABILITATION HOSPITALEDIN CASASANStart: 35-93-8581BNCUAFCO OXYGEN THERAPY PROTOCOLOU [facility] USMANtart: 90-67-8880BIDQS OXIMETRY, CONTINUOUS JV YESSENIAANStart: 02-07-2420OOQR FAST CULTURE WITH SMEARMERCY HOSPITAL [facility] YESSENIAtart: 75-22-2555CMKNLA STAINEDIN CASAStart: 33-87-0051LDJGZR CULTUREVABRENDA APPLE Start: 75-14-0181ZFHVQO CULTUREDIGNITY HEALTH EAST VALLEY REHABILITATION HOSPITALEDIN CASASANStart: 43-97-8125SQTXM OXIMETRY, CONTINUOUSWAMERCY HOSPITAL [facility] YESSENIAANStart: 31-07-5525Dkphkgkurorev (pct)JV KHtart: 61-49-2787ZGLCO OXIMETRY, CONTINUOUSWAMERCY HOSPITAL [facility] YESSENIAANStart: 60-19-0942YPPXE CAREOU MEDICAL [facility]ENTER [facility] USMANtart: 42-00-9749EBJCVNILGPXSQ NURSING CARE ORDER (SPECIFY)JV APPLE Start: 54-94-4317MUZMQSFS PATIENTWAMERCY HOSPITAL [facility] YESSENIAtart: 32-74-8500XTEVVY FOR SURGICAL PROCEDURESMERCY HOSPITAL [facility] YESSENIArt: 41-13-1860AWZSQYVAA AND AEROBIC CULTUREVABRENDA APPLE Start: 62-82-3481DGKCX OXIMETRY, CONTINUOUSWAMERCY HOSPITAL [facility] YESSENIAtart: 75-71-5325BEPVI OXIMETRY, CONTINUOUSWASE YESSENIAANStart: 22-84-0639VKWRN OXIMETRY, CONTINUOUSWASEEM YESSENIAANStart: 34-05-1657YU CONSULT TO IV TEAMMERCY HOSPITAL [facility] YESSENIAtart: 14-30-1508IRAQPVIQG SPIROMETRY RTOU [facility] YESSENIAtart: 10-12-0641ETNVJNXQ OXYGEN THERAPY PROTOCOLOU [facility] USMANtart: 53-16-0485LASPO OXIMETRY, CONTINUOUSWASEEM YESSENIAANStart: 08-23-2018 Blood count complete auto&auto difrntl wbcHERMANN AREA DISTRICT HOSPITALrt: 08-23-2018 Comprehensive metabolic panelNORTHWEST MEDICAL CENTERtart: 33-47-2542Esjeefnbfue platelet assayWAMERCY [facility] [place] YESSENIAtart: 20-51-2255PPCGD OXIMETRY, CONTINUOUSWAMERCY [facility] [place] YESSENIAANStart: 73-54-0833MMDSC OXIMETRY, CONTINUOUSWASEEM KHANStart: 21-69-1892SFLHV OXIMETRY, CONTINUOUSWASEEM KHANStart: 11-33-6590QXOYP OXIMETRY, CONTINUOUSWASEEM APPLE Start: 70-87-2267KLSEV OXIMETRY, CONTINUOUSWASEEM KHANStart: 29-24-7380XQNWUFWPD SPIROMETRY RTWASEEM YESSENIAANStart: 92-03-1004JXBMPKWY OXYGEN THERAPY PROTOCOLWASEEM YESSENIAANStart: 58-26-1110ATAPN OXIMETRY, CONTINUOUSWASEEM KHANStart: 08-22-2018 Assay of magnesiumWASEEM YESSENIAANStart: 87-68-4238Bhhsh count complete auto&auto difrntl wbcWASEEM YESSENIAANStart: 69-17-9323ECEWUYIFGG, TROUGHWASEEM YESSENIAANStart: 00-23-7472TNYEF OXIMETRY, CONTINUOUSWASEEM KHANStart: 14-41-6734EFCOU OXIMETRY, CONTINUOUSWASEEM KHANStart: 40-32-4381FMIQZ OXIMETRY, CONTINUOUSWASEEM APPLE Start: 26-61-9793Tfqjxmvctrhwc (pct)JVMARISABEL MARYtart: 21-54-0350ICACA OXIMETRY, CONTINUOUSWASEEM YESSENIAANStart: 37-10-4958ILOKC OXIMETRY, CONTINUOUSWASEEM APPLE Start: 91-43-3765Abv lower extrem oth/thn jt w/o & w/contr matrWASEEDIN MARYtart: 93-85-4471BQLJBCWGM SPIROMETRY RTWASEEM USMANtart: 50-04-8820XECISCJL OXYGEN THERAPY PROTOCOLWASEEM YESSENIAANStart: 28-91-6770PITZY OXIMETRY, CONTINUOUSWASEEM KHANStart: 01-61-8593Akocp of magnesiumWASEEM USMANtart: 13-72-0493Krdhq count complete auto&auto difrntl wbcWASEEM USMANtart: 37-33-9180JCYXO OXIMETRY, CONTINUOUSWASEEM KHANStart: 31-48-7177PYUIT OXIMETRY, CONTINUOUSWASEEM APPLE Start: 91-08-6739MSJWX OXIMETRY, CONTINUOUSWASEEM KHANStart: 08-20-2018 MISCELLANEOUS NURSING CARE ORDER (SPECIFY)JV USMANtart: 35-89-2105Dcybe foot complete minimum 3 viewsEDIN MARYtart: 34-65-0246XEHEQ OXIMETRY, CONTINUOUS JV USMANtart: 81-42-7024S-reactive proteinMERCY HOS[facility] USMANrt: 08-20-2018 SEDIMENTATION RATEBRENDA MARYtart: 65-55-4293XQXYX OXIMETRY, CONTINUOUSWABRENDA MARYtart: 74-75-0019SIBZMBICB SPIROMETRY RTDIGNITY HEALTH EAST VALLEY REHABILITATION HOSPITALEDIN MARYtart: 54-53-4396XPNEFLEW OXYGEN THERAPY PROTOCOLDIGNITY HEALTH EAST VALLEY REHABILITATION HOSPITALEDIN MARYtart: 69-36-3994ZFAYE OXIMETRY, CONTINUOUS JV YESSENIAANStart: 31-55-3382Effzm of magnesiumJV MARYtart: 72-01-8657Chdzn count complete auto&auto difrntl wbcEDIN MARYrt: 67-23-3716VYGCZ OXIMETRY, CONTINUOUSWABRENDA MARYtart: 74-02-0609LJWIS OXIMETRY, CONTINUOUSJV APPLE Start: 69-53-0019SYPXK OXIMETRY, CONTINUOUSWAEDIN MARYtart: 86-89-1532NN CONSULT TO ORTHOPEDIC SURGERYMER[facility] USMANrt: 59-67-8655Nmvaqlvbuaovj (pct) JVMARISABEL MARYrt: 99-61-3246JGQXP OXIMETRY, CONTINUOUSVABRENDA MARYtart: 90-64-4964Mgr spinal canal cervical w/o & w/contr matrlJV MARYtart: 02-00-8721Xnd spinal canal lumbar w/o & w/contr matrlVAEM USMANtart: 91-17-1721Hth spinal canal thoracic w/o & w/contr matrlWAEM YESSENIAANStart: 40-77-9633VHTXY OXIMETRY, CONTINUOUSWABRENDA AMRYtart: 33-22-5487SJAXKSQOT SPIROMETRY RTDIGNITY HEALTH EAST VALLEY REHABILITATION HOSPITALEDIN MARYtart: 20-15-9011USJPNIUK OXYGEN THERAPY PROTOCOLDIGNITY HEALTH EAST VALLEY REHABILITATION HOSPITALEDIN MARYrt: 93-42-2346LVQWX OXIMETRY, CONTINUOUSWAEM USMANtart: 35-08-5992JC CONS[facility] USMANtart: 37-72-3463Khhnb of magnesiumJV APPLE Start: 00-67-0267Bxpew count complete auto&auto difrntl wbcWABRENDA MARYtart: 36-32-0208WIVAT OXIMETRY, CONTINUOUSWASEEDIN MARYtart: 21-15-5434NYUPD OXIMETRY, CONTINUOUSWASEEM USMANtart: 21-10-4502UZDMU OXIMETRY, CONTINUOUSWABRENDA APPLE Start: 41-46-5115DICLL OXIMETRY, CONTINUOUSWASEEM YESSENIAANStart: 00-44-7668UTQYC OXIMETRY, CONTINUOUSWASEEM USMANtart: 27-62-4816QVBHYTZZZ MONITORINGJV APPLE Start: 03-22-1982THVXXSXHC SPIROMETRY RTVABRENDA MARYtart: 02-85-1020FGXCOVWD OXYGEN THERAPY PROTOCOLDIGNITY HEALTH EAST VALLEY REHABILITATION HOSPITALEDIN MARYtart: 80-71-1215WFWKD OXIMETRY, CONTINUOUS JV YESSENIAANStart: 02-63-7787Qcyyr of magnesiumWABRENDA MARYtart: 49-18-6023Julgj count complete auto&auto difrntl wbcVABRENDA MARYtart: 74-12-0667ZJLECVAGHS, TROUGHWABRENDA MARYtart: 25-05-9486UBJRI OXIMETRY, CONTINUOUSWASEEDIN MARYtart: 31-53-0584LHGIT OXIMETRY, CONTINUOUSWASEEDIN MARYtart: 39-35-4849VTAJM OXIMETRY, CONTINUOUSWASEEM USMANtart: 46-03-2926Qcftpddefixhh (pct)JVMARISABEL MARYrt: 28-27-4860TCRAA OXIMETRY, CONTINUOUSEDIN MAYRtart: 79-02-1613MRPHRYM BLOOD #1 JVMARISABEL MARYtart: 24-94-7209SSEGL OXIMETRY, CONTINUOUSWASEEM YESSENIAANStart: 10-58-6238Hyis tthrc r-t 2d w/wom-mode compl spec&colr dWABRAZO ARIZONA HEART HOSPITALEDIN MARYtart: 29-26-2063MYGUCQEVS SPIROMETRY RTVABRENDA MARYtart: 41-46-9398LWQKHMGG OXYGEN THERAPY PROTOCOLDIGNITY HEALTH EAST VALLEY REHABILITATION HOSPITALEDIN MARYtart: 81-65-5186EUABZ OXIMETRY, CONTINUOUSWASEEM YESSENIAANStart: 95-77-1366Axyzq of magnesiumVABRENDA MARYtart: 35-90-4159Henek count complete auto&auto difrntl wbcVABRENDA MARYtart: 49-19-6918V-reactive protein JV USMANtart: 54-27-4816JQIKHNJPPJYNK RATEWASEEM USMANtart: 61-78-2813TOFTC OXIMETRY, CONTINUOUSWASEEM YESSENIAANStart: 20-28-7401Kqdv tthrc r-t 2d w/wom-mode compl spec&colr dWASEEDIN MARYtart: 60-02-3773YLDPS OXIMETRY, CONTINUOUSWASEEM YESSENIAANStart: 29-27-5441XUDPS OXIMETRY, CONTINUOUSWASEEM KHANStart: 48-10-5777DRWOS OXIMETRY, CONTINUOUSWASEEM YESSENIAANStart: 39-12-5502GTSAV OXIMETRY, CONTINUOUS JV YESSENIAANStart: 64-38-9732Ojd-scan xtr veins complete bilateral studyWA YESSENIAtart: 37-03-1562Fgha tthrc r-t 2d w/wom-mode compl spec&colr dWMITCHEL APPLE Start: 69-80-8164Hu head/brain w/o contrast materialWAMERCY HOSPITAL [facility] YESSENIAtart: 08-16-2018 Radiologic exam chest 2 viewsMER[facility] YESSENIArt: 32-99-6486KUKMNQMZG SPIROMETRY RT JV YESSENIArt: 83-06-3476INUWYLRM OXYGEN THERAPY PROTOCOL YESSENIArt: 57-76-2950OTMUD OXIMETRY, CONTINUOUSWASEEM YESSENIAANStart: 18-97-8266KXSMQFO ISOLATIONWAMERCY HOSPITAL [facility] USMANtart: 83-87-6914Tktic of lactateWASE YESSENIAtart: 83-76-8603WSSZQHN, IONIZEDWASEEM YESSENIAtart: 06-22-6268YL CONSULT TO IV TEAM JV YESSENIArt: 20-43-2528Yduuz of magnesiumWASEEM YESSENIAtart: 22-87-9211Mtfxs count complete auto&auto difrntl wbcMERCY HOSPITAL [facility] rt: 78-45-0458Nkzhmywgqzg time JV USMANtart: 95-14-9658MWHYD OXIMETRY, CONTINUOUSWASEEM YESSENIAANStart: 62-41-5392BTFXR WEIGHTSWAMERCY HOSPITAL [facility] YESSENIAANStart: 79-86-1490DZFFC OXIMETRY, CONTINUOUS JV YESSENIAANStart: 06-77-0796UWE 12-LEADWAHERMANN AREA DISTRICT HOSPITALrt: 96-15-2289Geacl of lactateWAHERMANN AREA DISTRICT HOSPITALrt: 51-38-0835Vjoaoade I.cardiac mass concMERCY HOSPITAL [facility] rt: 54-71-6706LQNCR OXIMETRY, CONTINUOUSRESEARCH PSYCHIATRIC CENTERrt: 30-38-7678KTQGTKGN RT PROTOCOLHERMANN AREA DISTRICT HOSPITALrt: 00-96-4170HCCNEYQHGI ANTIGEN, URINEMERCY HOSPITAL [facility] rt: 05-52-8757DUXAL PNEUMONIAE ANTIGENMERCY HOSPITAL [facility] rt: 47-98-2478DH CONSULT TO NEUROLOGYHERMANN AREA DISTRICT HOSPITALrt: 36-61-9747Rcdfa of lactateMERCY HOSPITAL [facility] rt: 27-18-2141Wwjsbkf bacterial blood aerobic w/id isolates rt: 52-96-3560PZFQZDG BLOOD #1 rt: 54-32-5882LAPAGFBNMQ PNEUMONIAE ANTIBODY, IGMRESEARCH PSYCHIATRIC CENTERrt: 82-54-1323Otfqpobshyujb (pct)JV rt: 72-05-7466Lwfyyhtu I.cardiac mass concrt: 09-33-4445KVOCEJDA PRIVILEGES WITH ASSISTANCEHERMANN AREA DISTRICT HOSPITALrt: 23-55-1189AMPEXOPVK MONITORINGHERMANN AREA DISTRICT HOSPITALrt: 84-85-5746Rgt bact xcpt urine blood/stool aerobic isolSULLIVAN COUNTY MEMORIAL [facility] Start: 54-04-4793GIXMWQSSB DEEP BREATHING AND COUGHING rt: 96-26-3997MNNX CODEWAHERMANN AREA DISTRICT HOSPITALrt: 94-63-4969NYXQQMBZH SPIROMETRY RTMERCY HOSPITAL [facility] rt: 83-90-9669CKCTYNRM OXYGEN THERAPY PROTOCOLHERMANN AREA DISTRICT HOSPITALrt: 09-57-2843GZQLTG AND OUTPUT rt: 94-57-6867TO CONSULT TO INFECTIOUS DISEASESSAINT JOHN'S BREECH REGIONAL MEDICAL CENTERrt: 75-08-2354Hnvsvlxhxxm observation Gram stain Nom (Unsp spec)JV KHrt: 67-65-6941SIBKFA PHYSICIAN (SPECIFY)JVCOLUMBIA REGIONAL HOSPITALrt: 39-40-5331OBDXQQEO TO DOSE VANCOMYCINHERMANN AREA DISTRICT HOSPITALrt: 76-34-6366BBVKQ INTERMITTENT PNEUMATIC COMPRESSION DEVICEWASEEM [facility]PITALtart: 07-11-5849VQSLD OXIMETRY, CONTINUOUSWASEEM ANStart: 62-29-9468QPBAR SIGNSWASEEM [facility]OSPITALtart: 54-03-2454ZLRRWKU STATUS (DIRECT)JV MARYtart: 75-73-0226RoxyjvliskpQdqeg Back Work Phone: start: 33-06-7234Yycogtrvzyh observation [Identifier] in Cervix by Cyto Armani Casas Plan of Treatment DateCare ActivityDetailAuthorStart: 77-33-4071Iyvti panelLipidsInova Alexandria HospitalStart: 46-41-2339Nlgiu panelBon Secours St. Francis Medical CenterStart: 42-55-5595Xaqgwgei Vaccine (1 of 2)Shingles Vaccine (1 of 2)[facility] [place] Start: 25-19-6231Vmiqb panelLipWellmont Health SystemStart: 12-10-2027 Screening for malignant neoplasm of colonBon [facility] HospitalStart: 02-12-3329Uezmd panelLipidsINOVA HEALTH SYSTEMStart: 59-93-4389Hudcofcnn for malignant neoplasm of breastBreast cancer screenBon [facility] Mus[place]ki Start: 18-80-9259TTZ test (Diabetes, CKD 3-4, OR last GFR 15-59)GFR test (Diabetes, CKD 3-4, OR last GFR 15-59)[facility] HospitalStart: 07-21-2026 GFR test (Diabetes, CKD 3-4, OR last GFR 15-59)GFR test (Diabetes, CKD 3-4, OR last GFR 15-59)[facility] LOGIC DEVICESTwin County Regional HealthcareStart: 79-06-3006WPC test (Diabetes, CKD 3-4, OR last GFR 15-59)GFR test (Diabetes, CKD 3-4, OR last GFR 15-59)[facility] HospitalStart: 32-97-1923UJI test (Diabetes, CKD 3-4, OR last GFR 15-59)GFR test (Diabetes, CKD 3-4, OR last GFR 15-59)[facility] [place] Start: 27-67-0486Xjrzf panelFairfield Medical Center HealthStart: 17-98-8091ENC test (Diabetes, CKD 3-4, OR last GFR 15-59)GFR test (Diabetes, CKD 3-4, OR last GFR 15-59)[facility] HospitalStart: 15-34-5155Fqzdyeoirq A1c gisewrgmxjtI6F test (Diabetic or Prediabetic)Bon [facility] HospitalStart: 78-35-2535JUU test (Diabetes, CKD 3-4, OR last GFR 15-59)GFR test (Diabetes, CKD 3-4, OR last GFR 15-59)Bon [facility] HospitalStart: 82-28-7849Mronuyzyoe MonitoringDepression MonitoringBon [facility] HospitalStart: 76-31-7316WDW test (Diabetes, CKD 3-4, OR last GFR 15-59)GFR test (Diabetes, CKD 3-4, OR last GFR 15-59)[facility] Hospitalart: 96-98-8520Guhchkmemh A1c qxqepkxkbjcR8H test (Diabetic or Prediabetic)[facility] HospitalStart: 10-12-2025 End: 04-25-6033Lemurjc encounter atycxqbqf64/08/2026 10:30 AM EST Office Visit [facility] [address] [place] [address] [place] [address] Dimas Adair MD [address] [place] [address] [facility], Nose and Throat PhysiciansStart: 10-11-2025 End: 82-61-7916SO Head and neck soft tissueUS Soft Tissue Neck Imaging Routine Thyroid nodule Expected: 10/11/2025, Expires: 10/11/2026[facility] Work Phone: Comment on above:Expected: 10/11/2025, Expires: 10/11/2026Start: 08-29-2025 End: 99-53-5836Vzltuhh encounter ywhxzpscp35/25/2025 11:45 AM EST Office Visit [facility] [address] [place] [address] Lynn Block MD [address] [place] [address], [place] [address] TERRY Gutierrez [facility] Start: 08-23-2025 End: 02-60-3109Lbfmlbc encounter fxjepnimv40/19/2025 1:00 PM EST Office Visit [facility] [address] [place] [phone] Jennie Van, MULE DEVELOPER-SENIOR ELECTRICAL PROJECT MANAGER [address] [place] [address] SHANNANRubén MccarthySpartanburg NeurologyStart: 08-03-2025 End: 01-30-7545Mcvgbsw encounter oothliebk24/30/2025 11:00 AM EDT Office Visit [address], [address] Felipe Adam MD [address] [place] [address] Return in about 3 months (around 07/19/2025).[facility] on above:Return in about 3 months (around 07/19/2025).Start: 07-27-2025 End: 01-20-3563Oclehbr encounter hbvspavmz72/23/2025 11:00 AM EDT Office Visit [address], [address] Felipe Adam MD [address] [place] [address], [place] [address] Return in about 3 months (around 07/19/2025).[facility] on above:Return in about 3 months (around 07/19/2025).Start: 40-21-3463TAQAU-19 Vaccine ( season)COVID-19 Vaccine ( season)Sid GasparTogus VA Medical CenterStart: 05-31-2025 End: 06-06-2733CF Cervical spine 4 or 5 ViewsXR cervical spine complete 4 to 5 views Imaging Routine Cervical paraspinal muscle spasm Expected: 05/31/2025, Expires: 05/24/2026[facility] Work Phone: Comment on above:Expected: 05/31/2025, Expires: 05/24/2026Start: 78-30-7973Hztej panelLipid [facility], [place]Start: 05-24-2025 End: 59-77-7305Zjhlfgz encounter khafaicdu55/20/2025 11:30 AM EDT Office Visit NOMRubén [facility] [address] [place] [phone] Jennie Van APRNBOSTON HOME FOR INCURABLES [address] [facility] [place] [address] NOMRubén Gutierrez NeurologyStart: 05-17-2025 End: 02-80-0020Vwoztnk encounter djwenqdfu01/13/2025 1:20 PM EDT Office Visit [facility] [address] [place] [address] Trace Casas MD [address] [facility] [address] [address] [facility] NEURStart: 05-15-2025 End: 07-62-7577Ohehyhg encounter vfuwxinic77/11/2025 1:15 PM EDT Office Visit [address] [address] Felipe Adam MD [address] [place] [address] Return in about 6 months (around 05/15/2025).[facility] CenterComcorewell health [facility] on above:Return in about 6 months (around 05/15/2025).Start: 98-46-0161WYG test (Diabetes, CKD 3-4, OR last GFR 15-59)GFR test (Diabetes, CKD 3-4, OR last GFR 15-59)[facility] HEALTHStart: 97-68-7071Ghbhiozgc vaccinationInova Alexandria HospitalStart: 05-02-2025 Hemoglobin A1c hnnhdrdtuwjE1F test (Diabetic or Prediabetic)[facility] Hospitalart: 05-02-2025 End: 37-25-4915Cyxdoih encounter unsxmdpbs23/29/2025 2:00 PM EDT Office Visit [facility] NE[facility] B [address] [place] [phone] Fozia Meng, CLIENT BUSINESS MANAGER [address], [address] [place] [address] [facility] NEUR BStart: 05-01-2025 End: 41-01-7058Bpiheds encounter cxmdzcwyc66/28/2025 4:00 PM EDT Office Visit [facility] [address] [place] [address] Robbin Sánchez, DPM [address] [place] [address] NOMS WWW PODIATRYStart: 04-20-2025 End: 27-33-1803Hyxfphw encounter yewhndllx86/17/2025 12:45 PM EDT Office Visit [facility] [address] [place] [phone] Robibn Sánchez, DPM [address] [place] [address] ArrivedNOMS WWW PODIATRYComment on above:ArrivedStart: 04-06-2025 End: 43-25-4248Oopnomg encounter aeswrtbyl66/03/2025 4:30 PM EDT Office Visit [facility] [address] [place] [address] Robbin Sánchez, DPM [address] [place] [address] ArrivedNOMS [facility] PODIATRYComment on above:ArrivedStart: 04-06-2025 End: 86-20-3387Phcinkdwrq [Mass/volume] in Serum or PlasmaCreatinine, Serum Lab Routine Right foot pain Expected: 04/06/2025 (Approximate), Expires: 04/06/2026 [facility] HealthcareComment on above:Expected: 04/06/2025 (Approximate), Expires: 04/06/2026Start: 04-06-2025 End: 02-84-4543YA Foot - right WO and W contrast IVMR foot right w and wo IV contrast Imaging STAT Right foot pain Expected: 04/06/2025, Expires: 04/06/2026 [facility] Work Phone: comment on above:Expected: 04/06/2025, Expires: 04/06/2026Start: 03-14-2025 End: 53-81-9183Gfmxdzh encounter procedureNOMS [facility] NEUR BStart: 02-13-2025 End: 14-49-5430Mmqeekm encounter towgtcciq54/12/2025 1:00 PM EDT Office Visit [facility] [address] [address] Trace Casas MD [address] [facility] [address] [place] [address] [facility] NEURStart: 52-41-7570Srevkrsowh MonitoringDepression MonitoringBON SUMMA HEALTHStart: 11-15-2024 End: 92-93-6114Xxctcll encounter qmuccmzle87/11/2025 2:45 PM EST Office Visit [facility] [address] [place] [address] Felipe Adam MD [address] [place] [address] 6 [facility] CenterComment on above:6 moStart: 11-14-2024 End: 67-11-7933Vqrbste encounter procedureNOMS [facility] NEURComment on above:Arrived Start: 11-11-2024 End: 98-38-1477Ihudtww encounter avwdfdofv12/07/2025 1:00 PM EST Office Visit [facility] [address] [place] [address] Felipe Adam MD [address] [place] [address] 6 [facility] CenterComment on above:6 moStart: 85-39-5309Bzobgijbn for malignant neoplasm of cervixBON SECOURS FORT HAMILTON HOSPITALStart: 09-14-2024 End: 29-13-8551Vlgrkhb encounter kaccyhycg23/11/2024 11:20 AM EST Office Visit [facility] [address] [facility] [address] [place] [address] Fozia Meng, CLIENT BUSINESS MANAGER [address] [phone] ArrivedNOMS [facility] NEURComment on above: ArrivedStart: 69-68-9191YRiC/Tdap/Td vaccine (2 - Td or Tdap)DTaP/Tdap/Td vaccine (2 - Td or Tdap)[facility] HospitalStart: 69-41-7110WYcX/Tdap/Td vaccine (2 - Td)DTaP/Tdap/Td vaccine (2 - Td)[facility] KYStart: 16-20-3276Lvghpoy vaccinationOhioHealthStart: 09-05-2024 End: 23-18-0360Spxrbfy encounter gclbmckow74/02/2024 1:00 PM EST Office Visit [facility] [address] [facility] [address] [place] [address] Trace Casas MD [address] [address] [facility] NEURStart: 08-18-2024 End: 80-97-8557Qkdtqdc encounter yaekkcegx17/14/2024 1:30 PM EST Office Visit [facility] Urology [address] Specialty [place] [address] Luis Mclean, PACharitoC [address] [facility] [address] [place], [place] [phone] 1 yr med chkMRegency Hospital [facility]edo UrologyComment on above:1 yr med chkStart: 08-02-2024 End: 16-03-3691Mejjmpb encounter wrvsygfzr17/29/2024 10:45 AM EDT Office Visit [facility]O [address] [place] [address] Cheryl Miles DO [address] [place] [address] NOMS WNZ NEUROStart: 07-11-2024 End: 45-97-8452Ylphzhxjtkuw consultation with yuobioq2707/11/2024 11:30 AM EDT Telemedicine [facility] NE[facility]O [address] [place] [address], [place] [address] Janel Aleln CLIENT BUSINESS MANAGER [address] [place] [address] [facility] NEURO 210Start: 06-10-2024 End: 94-01-2560Ervqvxv encounter zevdrawrk37/06/2024 10:20 AM EDT Office Visit [facility] [address] [facility] [address] [place] [address] Trace Casas MD [address] [place] [address] ArrivedNOMS SWS NEURComment on above: ArrivedStart: 60-82-5145GLMZL-19 Vaccine ( season)COVID-19 Vaccine ( season)Bon [facility] Hospitalart: 50-87-9844VKWWN-19 Vaccine ( season)COVID-19 Vaccine ( season)[facility]Start: 06-05-2024 Influenza vaccinationInfluenza Vaccine (#1)[facility] HospitalStart: 00-24-6495Ryabttbgz for malignant neoplasm of colonBon [facility] Hospitalart: 25-39-5432WBS test (Diabetes, CKD 3-4, OR last GFR 15-59)GFR test (Diabetes, CKD 3-4, OR last GFR 15-59)[facility] Hospitalart: 82-31-1340Ddexnvxd screenDiabetes screen [facility] Centerart: 05-12-2024 End: 24-23-1774Umiafns encounter emrxuwbei78/08/2024 11:00 AM EDT Office Visit [facility] PUL Part of [address] [address] Lina Echols MD [facility] [place] [address] BUCK (obstructive sleep apnea)[facility] P[facility] Part of [facility] CenterComment on above: BUCK (obstructive sleep apnea)Start: 76-10-9395Qdjku panelLipid [facility], KYStart: 19-87-4881Clmgb screenLipid [facility], [place] Start: 67-69-0633Cxqgbwfar vaccinationFlu vaccine (#1)[facility] Start: 60-95-9415Agtdwcnjcm MonitoringDepression MonitoringBON [facility] Hospitalart: 60-69-7972ZXW test (Diabetes, CKD 3-4, OR last GFR 15-59)GFR test (Diabetes, CKD 3-4, OR last GFR 15-59)[facility] Hospitalart: 02-06-2024 Hemoglobin A1c xtkuzaiynxcL0V test (Diabetic or Prediabetic)[facility] Hospitalart: 08-13-2023 End: 32-72-9558Bwgfhdi encounter procedureElyria Memorial Hospital Andre UrologyStart: 06-22-2023 End: 63-90-9720Qtqtonc encounter jdxtdcfqy16/18/2023 11:15 AM EDT Office Visit [facility] [address], [place] Felipe Adam MD [address] [place] [address] [facility]: 06-05-2023 Influenza vaccinationSequential Influenza Vaccine (Season Ended)[facility] 73-93-8930Ookyssoco vaccinationBON [facility]: 04-14-2023 End: 78-17-7328Nrvkmni encounter ybsxfpwdv94/11/2023 Office Visit Family Medicine Felipe Adam MD [address] [place] [address] [facility]: 90-95-2211Uwitbmiich A1c gleyjvjxnrkK3C test (Diabetic or Prediabetic)[facility]: 70-62-3565Nnjsedbayi MonitoringDepression MonitoringBON SUMMA HE[facility] Start: 58-29-8076Kglekig and physical examination, annual for health maintenance Wellness VisitOhioHealthStart: 12-25-2022 End: 23-88-6484Mdkyjcl encounter cbxaijdnw86/23/2023 Office Visit Infectious Diseases Dav Hartman MD [address] [address] [facility]Start: 85-90-9765Pcjocfom screenDiabetes [facility]: 08-07-2022 End: 40-47-9299Wxdazrb encounter xcrnhubmg72/03/2022 Office Visit Urology Luis Mclean PA-C [address] [facility] [place] [address] [facility] UrologyStart: 07-15-2022 End: 86-49-4863Ejsdddl evaluation of patient and jvrodq9007/15/2022 Nurse Only [facility]Fl[facility] CenterwichStart: 07-09-2022 End: 55-55-6126Ewnhfnh encounter oslagrybg65/05/2022 Appointment IP Unit Samantha Lino RD, LD [facility] Diet and NutritionStart: 06-05-2022 Influenza vaccinationFairfield Medical Center HealthStart: 21-57-9895Svuficzhdz measurementFairfield Medical Center HealthStart: 37-53-9514Igvcgntpr [Moles/volume] in Serum or PlasmaPotassiumFairfield Medical Center HealthStart: 52-38-8623Ejofngtmm monitoringPotassium monitoringFairfield Medical Center Health Start: 94-73-8552Ovftticigp measurementCreatinine monitoringElyria Memorial Hospital Work Phone: start: 46-83-7033Hkquqwgig monitoringPotassium monitoringElyria Memorial Hospital Work Phone: start: 24-81-9618Ojbvogunf vaccinationFlu vaccine (#1) SID [facility]Start: 49-03-1311Ekuychyur for malignant neoplasm of cervixOhioHealthStart: 02-05-2022 End: 77-60-8986Ubxczsm encounter roaheuxkp96/04/2022 Appointment Physical Therapy Christel Donohue PTMWHZ Physical TherapyStart: 02-03-2022 End: 40-93-1349Wncgshv encounter procedureMWHZ Physical TherapyStart: 01-30-2022 End: 73-36-3500Txmlbzt encounter procedureUniversity [facility]als [facility] UrologyStart: 01-29-2022 End: 16-73-3060Llqoaho encounter dsmditchg79/27/2022 Appointment Physical Therapy Beverly Rangel PTAMWHZ Physical TherapyStart: 01-27-2022 End: 43-48-3010Gvnmlqn encounter iyffifbrb63/25/2022 Appointment Physical Therapy Christel Donohue PTMWHZ Physical TherapyStart: 01-24-2022 End: 54-94-7848Iagruqm encounter zedqyelva00/22/2022 Appointment Physical Therapy Vanessa Garcia PTMWHZ Physical TherapyStart: 01-22-2022 End: 93-90-1863Ixrpcgy encounter gplcovhhy52/20/2022 Appointment Physical Therapy Beverly Rangel PTAMWHZ Physical TherapyStart: 01-17-2022 End: 16-67-4082Hnskwin encounter qedsaaajl80/15/2022 Appointment Physical Therapy Beverly Rangel PTAMWHUzair Physical TherapyStart: 01-10-2022 End: 99-79-8233Umlosob encounter qbzjuwmkp38/08/2022 Appointment Physical Therapy Christel Donohue PTMWHZ Physical TherapyStart: 01-08-2022 End: 80-31-1978Madodqd encounter bmjtgbejh94/06/2022 Appointment Physical Therapy Beverly Rangel PTAMWHUzair Physical TherapyStart: 01-02-2022 End: 51-93-7722Ycmgzql encounter lvdoeootf57/31/2022 Appointment Occupational Therapy Judi Marie OTA [address] [place] [address] [facility] Occupational TherapyStart: 85-73-8149Efacblov screenDiabetes screen [place], [place]Start: 12-31-2021 End: 80-50-0871Mgjjotu encounter procedureMZ Physical TherapyStart: 12-30-2021 End: 61-85-2922Kvurkhb encounter /28/2022 Appointment Occupational Therapy Cheryl Herman OTMWHUzair Occupational TherapyStart: 12-27-2021 End: 50-48-1327Ixmolzu encounter oszikncxe50/25/2022 Appointment Occupational Therapy Eve Gaspar OTAMWHZ Occupational TherapyStart: 11-14-2021 End: 99-97-1546Kyutueo encounter yqbnkezhq72/10/2022 Office Visit Family Medicine Felipe Adam MD [address] [place] [address] [phone] [facility]Start: 03-33-1928Tjoffqwzam MonitoringDepression MonitoringMercy HealthStart: 34-07-9206Fnfdnjmjdo measurementCreatinine monitoringMercy Health Work Phone: start: 25-87-2251Iuktjawfx monitoringPotassium monitoringMercy Health Work Phone: start: 08-01-2021 End: 85-69-7896Bkzgxbj encounter /28/2021 Office Visit Urology Lita Weeks MD [address] [facility], [address] [place], [place] [phone] [facility] Hospitalard UrologyStart: 06-05-2021 Influenza vaccinationElyria Memorial HospitalStart: 26-71-2358Vziabnkqkr measurement Creatinine monitoringKettering Health, [place]Start: 32-22-1634MjW8r (Bld) [Mass fraction]A1C test (Diabetic or Prediabetic)[facility], [place]Start: 05-25-2021 Hemoglobin A1c gszoknqjqcxD2M test (Diabetic or Prediabetic)[facility] [employer] Work Phone: start: 93-27-7827Ugdbxmitj monitoringPotassium [facility], [place]Start: 11-13-2020 End: 18-07-9763Uucqkb Visit11/13/2020 Office Visit Family Medicine Felipe Adam MD [address] [place] [address] [phone] [facility] HospitalStart: 24-14-5002Mvxlmakfv monitoringPotassium monitoringKettering Health, KYStart: 10-23-2020 End: 02-49-3068Nrjxlf Visit10/23/2020 Office Visit Infectious Diseases Dav Hartman MD [address] [facility] [address] [place], [place] [id number] [facility]Start: 93-90-8131FuX4q (Bld) [Mass fraction]A1C test (Diabetic or Prediabetic)[facility] Meetingmix.comST. [facility]UK[facility], KYStart: 80-98-9716Ouzoydxurm measurementCreatinine monitoringFairfield Medical Center Health [place], [place]Start: 05-66-1063Ydjkilnrjy monitoringCreatinine monitoringFairfield Medical Center Health [place], [place]Start: 13-47-4290Rqgzllqfw monitoringPotassium monitoringFairfield Medical Center Health- [place], [place]Start: 06-12-2020 End: 85-32-5806Vhnlhg Visit06/12/2020 Office Visit Infectious Diseases Dav Hartman MD [address] [place], [place] [address] [facility], [facility] HospitalStart: 19-30-6374Fkqybfowc vaccinationFlu vaccine (#1)[facility]: 23-85-1057Lvhcyzdh cancer screenCervical cancer screenSelect Medical Specialty [facility]: 38-37-6763Dhyayfzbq for malignant neoplasm of cervixGeorgiaHealthStart: 11-01-2019 End: 01-15-5429Wwvqza Visit11/01/2019 Office Visit Infectious Diseases Dav Hartman MD [address] [place], [place] [address] [facility], [facility] HospitalStart: 07-28-2019 End: 71-64-5453Tyrclh Visit07/28/2019 Office Visit Infectious Diseases Dav Hartman MD [address] [place] [address] [phone] [facility], [facility].Start: 06-27-2019 End: 94-15-2090Eqfat Only06/27/2019 Nurse Only Family [facility] HospitalStart: 37-64-9907Vdizsgani vaccinationFlu vaccine (#1)[facility]: 51-08-2897Hvpbnwxmz vaccination givenSEQUENTIAL INFLUENZA VACCINE (Season Ended)[facility]iaHealthStart: 00-81-5340Bndfzikao for malignant neoplasm of breastGeorgiaHealthStart: 39-65-3731Urulybdve vaccinationINFLUENZA VACCINE (#1)[facility] Work Phone: Start: 03-23-2018 End: 73-16-9970TpvkaptcxeNfhaIxyztu Primary Care Women's HealthStart: 2009 Screening for malignant neoplasm of cervixHPV (without or with Pap)[facility]PITALStart: 74-70-9570Dabanpshy for malignant neoplasm of cervixPAP SMEAR [facility] Work Phone: Start: 95-82-2563Miapbwwzj B vaccine (1 of 3 - 19+ 3- dose series)Hepatitis B vaccine (1 of 3 - 19+ 3-dose series)Bon Bulmarolynnette [facility] HospitalStart: 98-62-8276Epjhv diphtheria, tetanus and acellular pertussis (DTaP) vaccinationTDAP (ADULT)[facility] Work Phone: Start: 70-75-6738Rwzcyaorv C screeningHepatitis C ScreeningTriHealth McCullough-Hyde Memorial HospitalStart: 84-41-5586Kwwznid vaccinationTETANTogus VA Medical Center Work Phone: Start: 79-76-4310JNUPR-19 Vaccine (1)COVID-19 Vaccine (1)[employer] Work Phone: start: 69-10-4167GSL screenHIV screenKettering Health, KYStart: 31-90-1150HPK screeningHIV screenElyria Memorial HospitalStart: 56-64-4647AWZ screeningHIV SCREENING [facility] Work Phone: Start: 53-88-1729USNVI-19 Vaccine (1)COVID-19 Vaccine (1)[employer] Work Phone: start: 44-22-8728Dznqorrkso MonitoringDepression MonitoringElyria Memorial HospitalStart: 80-74-0009Dhqrmkkylf screening using PHQ-9 (Patient Health Questionnaire 9) scoreOhioHealthStart: 05-89-4478Mdhut screening for proteinUrine MicroalbuminOhioHealthStart: 76-72-9524Nxlufjtstutq Vaccine: Ped or At-Risk (1 - PCV)Pneumococcal Vaccine: Ped or At-Risk (1 - PCV)[facility]HealthStart: 19-11-8010GNOLE-19 Vaccine (1)COVID-19 Vaccine (1)[facility] HospitalStart: 1982 History and physical examination, annual for health maintenanceWarren Memorial Hospital Visit GeorgiaHealthStart: 05-87-4334POGSL-19 Vaccine (#1)COVID-19 Vaccine (#1)[facility]: 69-74-3800Gzfkfjqwy B vaccine (1 of 3 - 3-dose series) Hepatitis B vaccine (1 of 3 - 3-dose series)[facility]: 71-77-2902Zxxonsspf for malignant neoplasm of colonCtioFairfield Medical Center End: 05-57-2195BBHJG-19COVID-19 Lab Routine Suspected COVID-19 virus infection 1 Occurrences starting 02/13/2021 until 02/13/2021[facility] Work Phone: comment on above:1 Occurrences starting 02/13/2021 until 02/13/20212338ZPYEU-10NFWLE-85 Lab Routine Suspected COVID-19 virus infection 02/13/2021 3:06 PM [employer] Phone: End: 20-98-6885LDULR-19 AmbulatoryCOVID-19 Ambulatory Lab Routine SOB (shortness of breath) 1 Occurrences starting 08/08/2020 until 08/08/2020[facility], KSComment on above:1 Occurrences starting 08/08/2020 until 08/08/2020COVID-19 AmbulatoryCOVID-19 Ambulatory Lab Routine SOB (shortness of breath) 08/08/2020 4:02 PM [facility], [place] End: 38-83-1674Qpygsyoivi [Mass/volume] in UrineCreatinine, Random Urine Lab Routine Once for 1 Occurrences starting 05/20/2021 until 05/20/2021[facility]Mov[facility] Phone: comment on above:Once for 1 Occurrences starting 05/20/2021 until 1Creatinine [Mass/volume] in UrineCreatinine, Random Urine Lab Routine 05/20/2021 7:57 PM [employer] Phone: End: 98-85-0347Oovjvxg, UrineCulture, Urine Microbiology Routine Acute cystitis with hematuria 1 Occurrences starting 04/13/2021until 04/13/2021[facility] Work Phone: comment on above:1 Occurrences starting 04/13/2021 until 1Culture, UrineMerMovinary Phone: End: 34-87-6383Pkpntwp, UrineCulture, Urine Microbiology Routine Difficult or painful urination 1 Occurrences starting 05/27/2021 until 05/27/2021[employer] Phone: comflmd on above:1 Occurrences starting 05/27/2021 until 05/27/2021 End: 50-40-0338Iijcvdc, UrineCulture, Urine Microbiology Routine Acute cystitis with hematuria Recurrent UTI 1 Occurrences starting 06/11/2021 until 06/11/2021 [employer] Phone: comzbui on above:1 Occurrences starting 06/11/2021 until 06/11/2021 End: 55-73-3443Fhkovjs, UrineCulture, Urine Microbiology Routine Frequent UTI Urinary urgency Urinary frequency 1 Occurrences starting 07/11/2021 until 07/11/2021[employer] Phone: comasxm on above:1 Occurrences starting 07/11/2021 until 07/11/2021 End: 12-43-9755Nfsrnbr, UrineCulture, Urine Microbiology Routine Frequent UTI Urinary urgency Urinary frequency 1 Occurrences starting 08/01/2021 until 08/01/2021[employer] Phone: combrvt on above:1 Occurrences starting 08/01/2021 until 08/01/2021 End: 83-60-4255Rtdildp, UrineCulture, Urine Microbiology Routine Acute cystitis with hematuria 1 Occurrences starting 04/28/2022until 04/28/2022ON [employer] Phone: comgzno on above:1 Occurrences starting 04/28/2022 until 04/28/2022 End: 51-80-5042Lnvzrzq, UrineBON [employer] Phone: comblvf on above:1 Occurrences starting 02/05/2023 until 02/05/2023 End: 77-15-3873Oojdoje, Wound (with Gram Stain)Bon SegmentComment on above:One Time for 1 Occurrences starting 04/04/2025 until 04/04/2025 End: 88-12-1383YBS Breast - bilateral screeningBon SecUbiCastComment on above:1 Occurrences starting 02/15/2025 until 02/15/2025 End: 83-96-2108Oeipdrkmqs A1c/Hemoglobin.total in BloodBON [employer] Work Phone: comment on above:1 Occurrences starting 04/12/2022 until 04/12/2022 End: 65-35-5693Hoghrcvgni A1c/Hemoglobin.total in BloodBON SECfotobabble Work Phone: Comment on above:Once for 1 Occurrences starting 02/05/2023 until 02/05/2023 End: 00-98-2632Letrvfdqeq A1c/Hemoglobin.total in BloodBon SecUbiCast Comment on above:1 Occurrences starting 08/02/2025 until 08/02/2025 End: 94-15-8079Dniz Sleep StudyMarl[facility] Hospitale [facility] Routine One Time for 1 Occurrences starting 08/29/2019 until 08/29/2019[facility] HospitalRaizlabsST. [facility] [place] Comment on above:One Time for 1 Occurrences starting 08/29/2019 until 08/29/2019 End: 20-96-9265Kkzagtyfbmqdj Acid, SerumMethylmalonic Acid, Serum Lab Routine Once for 1 Occurrences starting 09/24/2019 until 09/24/2019[facility] Phone: comhkka on above:Once for 1 Occurrences starting 09/24/2019 until 09/24/2019Methylmalonic Acid, SerumMethylmalonic Acid, Serum Lab Routine 09/24/2019 9:33 AM [employer] Work Phone: End: 95-71-3062Crfevqt Ab [Titer] in Serum by ImmunofluorescenceANA Lab Routine Once for 1 Occurrences starting 09/24/2019 until 09/24/2019[facility]Mov[facility] Phone: comxiga on above:Once for 1 Occurrences starting 09/24/2019 until 09/24/2019Nuclear Ab [Titer] in Serum by ImmunofluorescenceANA Lab Routine 09/24/2019 9:33 AM ESTSynereca Pharmaceuticals Phone: End: 59-35-1359Zylbcit, urine, randomProtein, urine, random Lab Routine Once for 1 Occurrences starting 05/20/2021 until 05/20/2021[employer] Phone: comment on above:Once for 1 Occurrences starting 05/20/2021 until 1Protein, urine, randomProtein, urine, random Lab Routine 05/20/2021 7:57 PM [employer] Phone: End: 69-72-1733Zqatitpegnbqi RateSedimentation Rate Lab Routine MRSA (methicillin resistant Staphylococcus aureus) septicemia (HCC) 1 Occurrences starting 12/14/2019 until 12/14/2019[facility] HospitalPushCallComment on above:1 Occurrences starting 12/14/2019 until 12/14/2019Sedimentation RateSedimentation Rate Lab Routine MRSA (methicillin resistant Staphylococcus aureus) septicemia (HCC) 12/14/2019 12:39 PM Not iT [place] End: 85-48-9945Etdhbhrn syndrome-A extractable nuclear antibodySjogrens syndrome-A extractable nuclear antibody Lab Routine Once for 1 Occurrences starting 09/24/2019 until 09/24/2019[employer] Phone: comment on above:Once for 1 Occurrences starting 09/24/2019 until 09/24/2019Sjogrens syndrome-A extractable nuclear antibody Sjogrens syndrome-A extractable nuclear antibody Lab Routine 09/24/2019 9:33 AM [employer] Phone: End: 72-92-0238Qfxeocmy syndrome-B extractable nuclear antibodySjogrens syndrome-B extractable nuclear antibody Lab Routine Once for 1 Occurrences starting 09/24/2019 until 09/24/2019[employer] Phone: comqket on above:Once for 1 Occurrences starting 09/24/2019 until 09/24/2019Sjogrens syndrome-B extractable nuclear antibody Sjogrens syndrome-B extractable nuclear antibody Lab Routine 09/24/2019 9:33 AM [employer] Phone: End: 34-51-3807Uzzat Study with PAP TitrationSleep Study with PAP Titration Sleep Center Routine One Time for 1 Occurrences starting 09/12/2019 until 09/12/2019[employer] Phone: comment on above:One Time for 1 Occurrences starting 09/12/2019 until 09/12/2019 End: 34-03-0841Imyidhj D2Ribwbfd B6 Lab Routine Once for 1 Occurrences starting 09/24/2019 until 09/24/2019[employer] Phone: comment on above:Once for 1 Occurrences starting 09/24/2019 until 09/24/2019Vitamin B4Iczopym B6 Lab Routine 09/24/2019 9:33 AM [employer] Phone: XR Cervical spine 4 or 5 ViewsXR cervical spine complete 4 to 5 views Imaging Routine Cervical paraspinal muscle spasm 512:45 PM EDTNONC Healthcare Immunizations Immunization DateImmunizationNotesCare XtqabuzyYnxrmpnc80-33-4861wicwxla toxoid, reduced diphtheria toxoid, and acellular pertussis vaccine, adsorbedBilly Back [facility] [place] Payers DatePayer CategoryPayerPolicy [id number] Care HMO (unspecified)[facility] HMO/CHOICE PLUS/DULCE/DULCE PLUS [id number] Health Insurance 1.2.840.393408.1.13.693.2.7.9.299313.244313.57335-54-1519Thhouxp Health [id number] 1.2.840.591330.1.13.239.2.7.3.031173.59072-20-3088Axrw-ipb [id number] Cross Blue Shield (Indemnity or Managed Care) - Out of StateBCBS OUT OF STATE [facility] Member Subscriber Plan / Payer (Effective 2017-Present) Name: Celina Gaspar Relation to Subscriber: Spouse Name: ROIBN GASPAR Date of : 1979 Address: [address] [place] [address] Payer ID: [id number] (NAIC) Type: Not on file Address: [facility] [id number] [place] [id number] [id number]5.43930-44-4495Yuvdbix82-28-3521Qancsyw [id number]hxdld 1.2840.601593.1.13.239.2.7.3.214874.315 [id number] 2014MedicaidCARESOURCE MANAGED MEDICAID [facility] MEDICAID xxxxxxxxxxx 2014-Presentxxxxxxxxxxx [id number] 840.1.462584.3.57[id number] .1.894676.3.57[id number] 2.16840.1.004404.3.579.2.12316-77-7689Jncmpay2599357 2.16840.1.498173.3.57[id number] 2.16840.1.532071.3.57[id number] 2.840.1.483532.3.579.2.7[id number] 2.840.1.868040.3.57[id number] 2.840.1.990140.3.579.[id number] 2.840.1.932805.3.579.2.45773-12-0978Nycktyj4239966 2.840.1.755895.3.579.2.82134-85-0120Xkmpiyn8550271 2.840.1.407322.3.579.2.02064-66-8417Isywlpp9807247 2.840.1.036223.3.579.2.16686-93-3563Qhrudfa781687036 2.840.1.421962.3.57[id number] 2.840.1.240559.3.579.2.85045-56-8189Sdqjgwt84709921 2.16840.1.913393.3.579.2.20156-48-8150Ilccuia86833244 2.840.1.591145.3.579.2.402967-31-8915Wzyzdts37504389 2.0.1.470145.3.579.2.377950-45-6262Dggchgt17603710 2..1.708761.3.579.2.145499-40-4075Etvndcv29888738 2.0.1.687320.3.579.2.243317-15-4351Kocudrn22836230 2..1.014391.3.579.2.632035-04-9511Oqssdoa55104348 2..1.721965.3.579.2.850775-62-8901Keukeda0522359 2..1.166038.3.579.2.616645-15-5507Axznzcs8889216 2..1.544189.3.579.2.410276-60-1108Vjkabqt3612300 2..1.615221.3.579.2.712089-86-5962Wcghrpk1524710 2..1.399087.3.579.2.391642-98-8882Kkqdtbj0544676 2..1.858041.3.579.2.028705-69-4067Jsfuyum01825021 2..1.809707.3.579.2.51643-95-4523Tsmbqxt03376983 2..1.786993.3.579.2.89499-25-8946Soplbva39660289 2..1.514145.3.579.2.32306-88-3040Okuebxn76138013 2..1.295711.3.579.2.56617-51-3340Rafvnli25227580 2.0.1.253461.3.579.2.20882-77-3637Atiqocl70748691 2.16.840.1.973085.3.579.2.91814-42-3307Gclrret31649942 2.16.840.1.064768.3.579.2.32181-60-3450Gyeuaug30337315 2.16.840.1.942969.3.579.2.42048-58-0854Ujjcygi12309679 2.16.840.1.095046.3.579.2.65347-77-9735Rspuczb06492317 2.16.840.1.878357.3.579.2.16352-88-1726BsuyzxdNRK059753162325 1.2.840.621562.1.13.239.2.7.3.008061.683Dvfntxt739Ripyhze54914500 2.16.840.1.589002.3.579.2.531 Social History DateTypeDetailFacilityStart: 05-01-2015 End: 51-74-6099Wbtbrli smoking status NHISNever smokerOhSelect Medical Specialty [facility] Work Phone: Start: 13-65-7723Fsm Assigned At BirthNot on file [facility] Work Phone: Start: 05-27-2019 End: 18-72-9292Btdizza intakeNoSelect [facility] Specialty [facility]: 12-13-2019 End: 09-46-3224Fslfois intakeCurrent non-drinker of alcohol (finding)[facility]: 12-09-2019 End: 27-63-5338Fpygtga SDOH Eyyrqovyh5AuyaySelect Medical Specialty Hospital [facility]: 12-09-2019 End: 45-13-1451Kybmnae SDOH Food Saktc5BpezbSelect Medical Specialty Hospital [facility]: 12-09-2019 History SDOH Transport Rhb5TjicqSelect Medical Specialty Hospital [facility]: 05-11-2020 End: 84-04-0169Hggwhsb use and exposureNever [facility] [place]: 10-30-2021 End: 58-72-3573Zliulpuv to SARS-CoV-2 (event)Not sureSelect Medical Specialty Hospital [facility]: 57-62-4855Hsu Assigned At [facility] Health Systemtart: 27-66-5748Wnedqac SDOH Dnnnsemdz3HZA [employer] Work Phone: start: 01-06-2023 End: 93-35-2250Wvmlmon of Social functionOhioHealthHow hard is it for you to pay for the very basics like food, housing, medical care, and heatingNot very hard X2IMPACTStart: 61-96-7978Ynfbgnk Health Questionnaire 9 item (PHQ-9) total score [Reported]0BON [employer](I/We) worried whether (my/our) food would run out before (I/we) got money to buy more.Never trueBON Flywheel SportsAt any time in the past 12 months, were you homeless or living in snf [including now]?NoBON Karisma Kidz HEALTHStart: 10-09-2020 Gender identityIdentifies as female gender (finding)X2[employer]PACT Start: 86-07-8748Kehkfl orientationHeterosexual (finding)BON [employer] HEALTHHow hard is it for you to pay for the very basics like food, housing, medical care, and heatingSomewhat hardBON [employer] HEALTHStart: 06-10-2024 End: 11-21-9272Veqpftjhr beverage intakeLifetime non-drinker (finding)[facility]OM[facility] HealthcareStart: 27-59-0826Svkdqfk CommentCaffeine Intake: Yes, popNONC HealthcareStart: 46-31-9662OamCwqcaf (finding)Shelf.com HealthHow often to you have a drink containing alcohol?NeverBon [employer] (Group) HealthStart: 04-20-2025 End: 85-32-2523Xdcjtdnjy beverage intakeEx-drinker (finding)[facility] Start: 00-04-5727Jyhlfuq Comment1-2 times a yearNONC HealthcareNEGATED: Highlighted rowStart: NINFHistory of tobacco usePassive smokerBON [facility] Functional Status DateAssessmentResultFaPioneer Community Hospital of [facility] Clinical Notes 12-23-2021 to 07-31-2025 Note Date & JhtpNmuxFrzulzol05-08-8069 Telephone encounter Note* Telephone Encounter - Janel Allen NP - 07/31/2025 8:33 AM EDT OARRS reviewed. Sent. [facility] SpringfieldManweknmfs47-51-5601 Miscellaneous Notes* Telephone Encounter - Janel Allen NP - 07/31/2025 8:33 AM EDT OARRS reviewed. Sent. documented in this encounterDoctors Hospital of SpringfieldXdmnvcduat73-47-5141 History of Present illness Narrative* Jennie Van [...] a 44 y.o. female who presents for UBCK (uses Cpap) and charcot joint of left [...] reflexes: Goyo's absent. Ankle clonus absent. Coordination Nvzaeh-ve-hftu, rapid alternating movements and pjxz-ki-ssqv normal bilaterally without dysmetria. Gait Casual gait: [...] Continue current management plan documented in this encounterDoctors Hospital of SpringfieldDnyykzoeit39-59-6361 Telephone encounter Note* Telephone Encounter - Paresh Cary - 05/23/2025 9:36 AM EDT Patient same day canceled due to her foot being in a boot and cannot drive by herself. [facility] SpringfieldXszrizzoyd61-67-0162 Miscellaneous Notes* Telephone Encounter - Paresh Luis Daniel - 05/23/2025 9:36 AM EDT Patient same day canceled due to her foot being in a boot and cannot drive by herself. documented in this encounterDoctors Hospital of SpringfieldZswfhszoij95-64-1005 History of Present illness Narrative* Robbin Sánchez, [...] next visit with xra documented in this encounterDoctors Hospital of SpringfieldSsetqpzpyq61-61-6740 Evaluation note* Diagnosis Chronic renal impairment, stage [...] stage 3a (HCC) documented in this encounter [facility]07-10-2025 Evaluation note* Diagnosis Chronic renal impairment, stage 3a (HCC)- Primary Depression with anxiety Dysthymic disorder Gastroesophageal reflux disease without esophagitis Esophageal reflux Vitamin D deficiency Unspecified vitamin D deficiency Mixed hyperlipidemia BUCK on CPAP Obstructive sleep apnea (adult) (pediatric) Restless legs Restless legs syndrome (RLS) Hyperglycemia Other abnormal glucose Pain in right foot Pain in limb documented in this encounter [facility]07-03-2025 History of Present illness Narrative* Robbin Sánchez, INDER - 04/06/2025 4:30 PM EDT Celina Gaspar is a 44 y.o. female presents with chief complaint of Foot Ulcer (RT toe 2 ulcer) HPI: HPI Pt has ulcer on RT toe 2 for about 2 wks. She went to [facility] ER on 04-04-25, xrays, culture and [...] toe or midfoot but also Charcot MRI [facility] 04-11-25 11:30 AM, arrive at 11:00 AM. Pt notified. documented in this encounterDoctors Hospital of SpringfieldTowxfeerme58-31-3302 Evaluation note* Diagnosis Chronic renal impairment, stage [...] laterality- Primary documented in this encounter [facility]06-10-20[facility] History of Present illness Narrative* [...] current (Dreamwear) mask. See below. Get all [facility] (full). Weight loss. 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 Lab Frequency Next Occurrence Therapeutic injection carpal [...] - AHI=1.8 @ 12 with REM; PLMI=0 ([place]) (BMI=38.4) - AHI=4.6 @ 11 no REM, [...] Neurology ? [address] ? [place], [place] [address] ? ? fax Neurology ? Clinical Neurophysiology ? Epilepsy ? Sleep Disorders ? Clinical Informatics documented in this encounterDoctors Hospital of SpringfieldYylpqqbqhq93-57-0568 Evaluation note* Diagnosis Chronic renal impairment, stage [...] Other screening mammogram documented in this encounter [facility]05-12-2025 History of Present illness Narrative* Trace [...] Depression: Not at risk (11/15/2024) Received from [facility] PHQ-2 PHQ-9 Total Score: 0 [...] reflexes: Goyo's absent. Ankle clonus absent. Coordination Ikgvfk-gm-dgat, rapid alternating movements and wkaw-bp-olqv normal bilaterally without dysmetria. Gait Normal casual, toe, heel and tandem gait. Romberg is absent. 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 She continues to have significant discomfort in her feet to interrupt her sleep. This is likely worsened by Hwaqhoc-Irrqv-Dvwgp for which she had surgery in February [...] nasal pillows. She will take this to [facility] in [place]. We will get the original sleep study from [facility] for review. She is following with Dr. Block for sleep medicine. EVALUATION: PSG 03/2024 - CPAP 66tdJ50 w/heated humidification EMG of BUE 11/25 showed [...] by Trace Casas MD documented in this encounterDoctors Hospital of SpringfieldJzxygjarwm98-03-3827 History of Present illness Narrative* Lynn Block [...] in all four extremities, including at least alum mixer, finger abductors, biceps, triceps, deltoid, toe flexors [...] ? [address] ? [place] [address] ? ? fax Neurology ? Clinical Neurophysiology ? Epilepsy ? Sleep Disorders ? Clinical Informatics documented in this encounterDoctors Hospital of Spr[id number] Telephone encounter Note* Telephone Encounter - Janel Allen NP - 11/02/2024 9:16 PM EST Pharmacy sends medication clarification for nortriptyline as there are two directions on one received. Per ONUR Gunderson plan increase nortriptyline 50 mg 2 daily/bedtime total of 100 mg. [facility] [id number] Miscellaneous Notes* Telephone Encounter - Janel Allen NP - 11/02/2024 9:16 PM EST Pharmacy sends medication clarification for nortriptyline as there are two directions on one received. Per ONUR Gunderson plan increase nortriptyline 50 mg 2 daily/bedtime total of 100 mg. documented in this encounterDoctors Hospital of SpringfieldAohbhzyzay34-62-[address] [place] [address] (11) [facility] [address] [place] [address] MEDICAL OFFICE [facility] [address] Dept: [phone] Loc: [phone] MD Celina Browne 44 y.o. female Patient [...] Resource Strain: Medium Risk (05/08/2024) Received from [facility] Overall Financial Resource Strain (CARDIA) Difficulty of Paying Living Expenses: Somewhat hard Food Insecurity: No Food Insecurity (05/08/2024) Received from [facility] Hunger Vital Sign Worried About Running Out of Food in the Last Year: Never true Ran Out of Food in the Last Year: Never true Transportation Needs: Unknown (05/08/2024) Received from [facility] PRAPARE - Transportation Lack of Transportation (Non-Medical): No Housing Stability: Unknown (05/08/2024) Received from [facility] Housing Stability Vital Sign Unstable Housing [...] of submandibular glands, clear salivary flow from Hale's ducts, no stones of Felipe's ducts Temporomandibular Joint: no crepitus with motion, no tenderness on palpation, no mayo (more content not included)...[facility] [id number] History of Present illness Narrative* Dimas Adair MD - 10/11/2024 10:05 AM EST [facility] [address] [facility] [facility] (11) [facility] [address] MEDICAL OFFICE [facility] [address] Dept: [phone] Loc: [phone] MD Celina Browne 44 y.o. female Patient [...] Resource Strain: Medium Risk (05/08/2024) Received from [facility] Overall Financial Resource Strain (CARDIA) Difficulty of Paying Living Expenses: Somewhat hard Food Insecurity: No Food Insecurity (05/08/2024) Received from [facility] Hunger Vital Sign Worried About Running Out of Food in the Last Year: Never true Ran Out of Food in the Last Year: Never true Transportation Needs: Unknown (05/08/2024) Received from [facility] PRAPARE - Transportation Lack of Transportation (Non-Medical): No Housing Stability: Unknown (05/08/2024) Received from [facility] Housing Stability Vital Sign Unstable Housing [...] Hematological: Negative. Psychiatric/Behavioral: Negative. documented in this [id number] Telephone encounter Note* Telephone Encounter - Gwen Meng - 09/14/2024 2:18 PM EST Voicemail Received: Our numbers [phone] actually have a question regarding a prescription that was prescribed today, If someone could please call me back. Thank you. Byjuanpablo. [facility] [id number] Miscellaneous Notes* Telephone Encounter - Gwen Meng - 09/14/2024 2:18 PM EST Voicemail Received: Our numbers [phone] actually have a question regarding a prescription that was prescribed today, If someone could please call me back. Thank you. Rosa Isela. documented in this encounterDoctors Hospital of [id number] Miscellaneous Notes* Telephone Encounter - My Johnson - 08/11/2024 12:03 PM EST Patient called and requested refill of Lyrica to be sent to [facility] in [place]. documented in this encounterDoctors Hospital of SpringfieldRffizgulnn30-96-3216 Telephone encounter Note* Telephone Encounter - My Johnson - 08/11/2024 12:03 PM EST Patient called and requested refill of Lyrica to be sent to [facility] in [place]. [facility] [id number] History of Present illness Narrative* Tequila Obando [...] Grandfather Depression: At risk (01/28/2024) Received from [facility] PHQ-2 PHQ-9 Total Score: 6 REVIEW [...] reflexes: Goyo's absent. Ankle clonus absent. Coordination Zsgpwl-gt-ndha, rapid alternating movements and hpdl-om-jwio normal bilaterally without dysmetria. Gait Normal casual, [...] Follow up 3 months. documented in this encounterDoctors Hospital of Spr[id number] History of Present illness Narrative* Cheryl Miles, [...] was counseled on the risks of stroke, MT, and sudden with BUCK, along with the [...] to clinic: 3-6 months documented in this encounterDoctors Hospital of Spr[id number] History of Present illness Narrative* MASSIMO Shook [...] 2022. Shefollows with an outside provider in [place] and was immobilized for an extended period [...] Foot & Ankle Surgery documented in this [id number] NotePROCEDURE: XR ANKLE LT MIN 3 V, [...] Electronically authenticated by: PIPER MERCEDES Date: 2023-01-29 07:05[facility]04-27-2023 NotePROCEDURE: XR ANKLE LT MIN 3 [...] Electronically authenticated by: PIPER MERCEDES Date: 2023-01-29 07:05[facility]10-05-2022 History of Present illness Narrative* Samantha [...] BMR: 1573 calories Est. total calorie needs: ~7975-4135 Lab Results Component Value Date/Time TRIG 460 [...] bread Supper: pork chop or chicken, homemade slovak fries, mashed, or baked potato with broccoli [...] [facility] Phone: 1(263) 658-630005-04-2022 History of Present illness Narrative* Christel Donohue, PT - 02/05/2022 9:45 AM EDT [facility] Date: 02/05/2022 Patient Name: Celina Gaspar : 1980 Pt No Showed Appt- Follow up call, left message on voicemail that patient discharged, but to call if has questions or concerns. Christel Donohue, PT Date: 02/05/2022 [place] Phone: 1(793) 547-997905-04-2022 Hospital course Narrative* Christel Donohue, PT - 02/05/2022 9:45 AM EDT Images from the original note were not included. [facility] Discharge Summary Patient: Celina Gaspar : 1980 Referring Practitioner: Liliane Sawyer APRN, SENIOR ELECTRICAL PROJECT MANAGER Referral Date : 12/19/21 Diagnosis: Lumbar [...] Donohue, PT Date: 02/05/2022 documented in this [facility] Phone: 1(211) 879-649105-02-2022 History of Present illness Narrative* Jerica Melgar - 02/03/2022 10:30 AM EDT [facility] Date: 02/03/2022 Patient Name: Celina Gaspar : 1980 Pt Cancelled Appt due to no reason for cancel. Jerica Melgar Date: 02/03/2022 documented in this [facility] Phone: [phone]) 865-404904-27-2022 History of Present illness Narrative* Beverly Rangel, [...] Increase trunk ROM B rotation WFL-Not Met Mcfp Goals - Time Frame for intermediate frame tender goals : 10 Mcfp Goals Time Frame for intermediate frame tender goals : 10 MCC goal 1: Decrease pain low back 2/10 at worst x3 days for completing normal activities intermediate frame tender goal 2: Patient to report 50% decrease in radicular symptoms L LE Post Treatment Pain: 5/10 Time In: 0859 Time Out: 0947 Timed Code Treatment Minutes: 48 Minutes Total Treatment Time: 48 Minutes Beverly Rangel PTA Date: 01/29/2022 documented in this [facility] Phone: 1(177) 505-833604-25-2022 History of Present illness Narrative* Christel Donohue, [...] Increase trunk ROM B rotation WFL-Not Met Reinstatement Clerk Goals - Time Frame for intermediate frame tender goals : 10 Mcfp Goals Time Frame for MCC goals : [...] Donohue, PT Date: 01/27/2022 documented in this [facility] Phone: 1(296) 421-683704-22-2022 History of Present illness Narrative* Vanessa Castro [...] 4: Increase trunk ROM B rotation WFL Reinstatement Clerk Goals - Time Frame for intermediate frame tender goals : 10 Reinstatement Clerk Goals Time Frame for intermediate frame tender goals : 10 intermediate frame tender goal 1: Decrease pain low back 2/10 at worst x3 days for completing normal activities MCC goal 2: Patient to report 50% decrease in radicular symptoms L LE Post Treatment Pain: 5/10 Time In: 0952 Time Out: 1030 Timed Code Treatment Minutes: 38 Minutes Total Treatment Time: 38 Minutes Vanessa Garcia, PT Date: 01/24/2022 documented in this [facility] Phone: 1(120) 780-598904-20-2022 History of Present illness Narrative* Beverly Gutiérrez Rangel, BOILER MAKER - 01/22/2022 4:45 PM EDT [facility] Date: 01/22/2022 Patient Name: Celina Gaspar : 1980 Patient did not show up for her appointment. Message left on answering machine with a reminder of her next appointment on Thursday. Beverly Brock Claire, BOILER MAKER Date: 01/22/2022 documented in this [facility] Phone: [phone]) 572-443804-15-2022 History of Present illness Narrative* Beverly Gutiérrez Rangel, BOILER MAKER - 01/17/2022 10:30 AM EDT Images from the original note were not included. [facility] Daily Note Date: 01/17/2022 Patient Name: Celina Gaspar : 1980 (41 y.o.) Referring Practitioner: Liliane Sawyer APRN, SENIOR ELECTRICAL PROJECT MANAGER Referral Date : 12/19/21 Diagnosis: Lumbar [...] 4: Increase trunk ROM B rotation WFL Reinstatement Clerk Goals - Time Frame for intermediate frame tender goals : 10 MCC goal 1: Decrease pain low back 2/10 at worst x3 days for completing normal activities MCC goal 2: Patient to report 50% decrease in radicular symptoms L LE Post Treatment Pain: 5/10 Time In: 1037 Time Out: 1107 Timed Code Treatment Minutes: 30 Minutes Total Treatment Time: 30 Minutes Beverly Rangel PTA Date: 01/17/2022 documented in this [facility] Phone: 1(442) [phone] History of Present illness Narrative* ISAIAH Metzger - 01/13/2022 3:15 PM EDT [facility] Date: 01/13/2022 Patient Name: Celina Gaspar : 1980 Pt Cancelled Appt due to no reason given. NABILA Metzger Date: 01/13/2022 documented in this [facility] Phone: 1(754) 726-240004-01-2022 History of Present illness Narrative* Beverly Rangel [...] 4: Increase trunk ROM B rotation WFL Reinstatement Clerk Goals - Time Frame for intermediate frame tender goals : 10 intermediate frame tender goal 1: Decrease pain low back 2/10 at worst x3 days for completing normal activities MCC goal 2: Patient to report 50% decrease in radicular symptoms L LE Post Treatment Pain: 5/10 Time In: 0948 Time Out: 1028 Timed Code Treatment Minutes: 40 Minutes Total Treatment Time: 40 Minutes Beverly Rangel PTA Date: 01/03/2022 documented in this [facility] Phone: 1(120) [phone] History of Present illness Narrative* Cheryl Herman [...] Time Frame for Short term goals: STG=LTG Reinstatement Clerk Goals Time Frame for MCC goals : 12 visits (01/24/2022) MCC goal 1: pt to be indepenent in HEP-MET intermediate frame tender goal 2: Pt to demonstrate R wrist flexion to 65 degrees or more in order to engage in daily tasks-MET intermediate frame tender goal 3: Pt to demonstrate R wrist [...] Houser, OTR/L Date: 12/31/2021 documented in this [facility] Phone: 1(420) 577-166603-29-2022 Hospital course Narrative* Cheryl Castro NORMAN Herman [...] has been provided w/ HEP for continued pinch/alum mixer strengthening & stretching. Therapist provided pt with handout on Carpal Tunnel Dos & Dont's to avoid re-injury. Prognosis: Fair Goals Short Term Goals Time Frame for Short term goals: STG=LTG Mcfp Goals Time Frame for intermediate frame tender goals : 12 visits (01/24/2022) intermediate frame tender goal 1: pt to be indepenent in HEP-MET MCC goal 2: Pt to demonstrate R wrist flexion to 65 degrees or more in order to engage in daily tasks-MET intermediate frame tender goal 3: Pt to demonstrate R wrist [...] Houser, OTR/L Date: 12/31/2021 documented in this [facility] Phone: 1(857) 234-877503-29-2022 History of Present illness Narrative* Christel Donohue, [...] Increase trunk ROM B rotation WFL intermediate frame tender goals Time Frame for intermediate frame tender goals : 10 MCC goal 1: Decrease pain low back 2/10 at worst x3 days for completing normal activities intermediate frame tender goal 2: Patient to report 50% decrease in radicular symptoms L LE Patient's Goal: Decrease back pain to complete normal activities Timed Code Treatment Minutes: 15 Minutes Total Treatment Time: 45 Time In: 8:30 Time Out: 9:15 Christel Donohue, PT Date: 12/31/2021 documented in this [facility] [employer] Work Phone: 1(420) 414-228703-28-2022 History of Present illness Narrative* Chreyl Herman OT - 12/30/2021 8:30 AM EDT [...] Time Frame for Short term goals: STG=LTG Reinstatement Clerk Goals Time Frame for MCC goals : 12 visits (01/24/2022) intermediate frame tender goal 1: pt to be indepenent in HEP-MET intermediate frame tender goal 2: Pt to demonstrate R wrist [...] Houser, OTR/L Date: 12/30/2021 documented in this [facility] Phone: 1(200) 789-935003-21-2022 History of Present illness Narrative* Cheryl Castro [...] completing these mvmts Left Hand Strength - Cost Analyst (lbs) Handle Setting 2: 54#, 50#, 53# (52.3# ave) Left Hand Strength - Pinch (lbs) Lateral: 13.5# Tip: 8# Palmar 3 point: 11# Right Hand Strength - Cost Analyst (lbs) Handle Setting 2: 53#, 54#, 53# [...] Time Frame for Short term goals: STG=LTG MCC goals Time Frame for MCC goals : 12 visits (01/24/2022) intermediate frame tender goal 1: pt to be indepenent in HEP MCC goal 2: Pt to demonstrate R wrist flexion to 65 degrees or more in order to engage in daily tasks MCC goal 3: Pt to demonstrate R wrist extension to 60 degrees or more in order to engage in daily tasks intermediate frame tender goal 4: Pt to be educated on carpal tunnel do's & dont's in order to prevent further repetitive injury to wrist Patient's Goal: pt wishes to return to prior function Time In: 830 Time Out: 924 Timed Coded Minutes: 0 Total Treatment Time: 54 THERESA Houser, OTR/Matthew 12/23/2021 [facility] Phone: evalziybyc note* Diagnosis Viral illness Unspecified viral infection, in conditions classified elsewhere and of unspecified site [facility] Phone: evalsznack note* Diagnosis Suspected COVID-19 virus infection documented [facility] this [facility] Phone: evalqdrsxr note* Diagnosis Acute cystitis with hematuria Acute cystitis documented in this [facility] Phone: evaluation note* Diagnosis Difficult or painful urination Dysuria documented in this encounter [facility] Phone: evalmklice note* Diagnosis Acute cystitis with hematuria Acute cystitis Recurrent UTI Urinary tract infection, site not specified documented in this [facility] Phone: evaluyherx note* Diagnosis Frequent UTI Urinary tract infection, site not specified Urinary urgency Urgency of urination Urinary frequency documented [facility] this [facility] Phone: evalcmkkfu note* Diagnosis Frequent UTI Urinary tract infection, site not specified Urinary urgency Urgency of urination Urinary frequency documented in this [facility] Phone: evalrfkexb note* Diagnosis MRSA (methicillin resistant Staphylococcus aureus) septicemia (HCC) Methicillin resistant staphylococcus aureus septicemia documented in this encounter [facility]Red[facility]otecC[facility] noteNo assessment information availableCity Hospital Work Phone: Evaluation note* Diagnosis Fatigue, unspecified type Encounter for screening for HIV Mixed hyperlipidemia Hyperglycemia Other abnormal glucose Chronic renal impairment, stage 3b (HCC) documented in this encounter [facility] Phone: evalqfvfng note* Diagnosis Acute cystitis with hematuria Acute cystitis documented in this encounter [facility] Phone: evaluation note* Diagnosis Neck mass Swelling, mass, or lump in head and neck documented in this encounter [facility] Phone: evaluation note* Diagnosis Pain of foot, unspecified laterality Closed nondisplaced fracture of second metatarsal bone of left foot, initial encounter Closed nondisplaced fracture of lateral cuneiform of left foot, initial encounter documented in this encounter [facility] Phone: evaluation note* Diagnosis Foreign body (FB) in soft tissue Residual foreign body in soft tissue documented in this encounter [facility] Phone: evaluation note* Diagnosis Pelvic pressure in female Other specified symptom associated with female genital organs documented in this encounter [facility] Phone: evalsmhfrn note* Diagnosis Charcot arthropathy of midfoot- Primary Gastrocnemius equinus, unspecified laterality Foot pain, left Pain in soft tissues of limb [facility]* Diagnosis Mixed hyperlipidemia documented in this encounter [facility] note* Diagnosis Idiopathic progressive polyneuropathy Non-seasonal allergic rhinitis due to pollen documented in this encounter [facility]* Diagnosis Thyroid nodule Nontoxic uninodular goiter documented in this encounter [facility]* Diagnosis Thyroid nodule- Primary Nontoxic uninodular goiter [facility]* Diagnosis BUCK on CPAP- Primary 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 (CMS/HCC) Restless legs Restless legs syndrome (RLS) Bilateral carpal tunnel syndrome Carpal tunnel syndrome documented in this encounter [facility]* Diagnosis Idiopathic progressive polyneuropathy- Primary Bilateral carpal tunnel syndrome Carpal tunnel syndrome Restless legs Restless legs syndrome (RLS) Intractable 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 (CMS/HCC) documented in this encounter [facility] note* Diagnosis BUCK (obstructive sleep apnea) Obstructive sleep apnea (adult) (pediatric) Hypersomnia Hypersomnia, unspecified Snoring Other dyspnea and respiratory abnormality Class 2 obesity due to excess calories with body mass index (BMI) of 38.0 to 38.9 in adult, unspecified whether serious comorbidity present documented in this encounter [facility] note* Diagnosis Idiopathic progressive polyneuropathy Non-seasonal allergic rhinitis due to pollen documented in this encounter [facility] note* Diagnosis Thyroid nodule- Primary Nontoxic uninodular goiter Lipoma of neck [facility]* Diagnosis 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 (CMS/HCC) documented in this encounter [facility] note* Diagnosis BUCK on CPAP- Primary Idiopathic progressive polyneuropathy Restless legs Restless legs syndrome (RLS) Intractable 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 (CMS/HCC) documented in this encounter [facility] HealthcareEvaluation note* Diagnosis Pre-diabetes Other abnormal glucose Mixed hyperlipidemia [facility]* Diagnosis BUCK (obstructive sleep apnea)- Primary Obstructive sleep apnea (adult) (pediatric) BUCK on CPAP Claustrophobia (CMS/HCC) Other isolated or specific phobias documented in this encounter [facility] note* Diagnosis BUCK (obstructive [...] apnea (adult) (pediatric) documented in this encounter [facility] note* Diagnosis BUCK (obstructive sleep apnea)- Primary Obstructive sleep apnea (adult) (pediatric) BUCK on CPAP Claustrophobia Other isolated or specific phobias BUCK (obstructive sleep apnea)- Primary Obstructive sleep apnea (adult) (pediatric) Claustrophobia Other isolated or specific phobias Hypersomnia Hypersomnia, unspecified documented in this encounter [facility] note* Diagnosis BUCK (obstructive [...] Other abnormal glucose documented in this encounter [facility] Discharge instructions* Attachments The following attachments cannot be sent through Care Everywhere. * Diabetic Foot Ulcer (Omani) [facility] Narrative* Other (Routine) - ClosedSpecialtyDiagnoses / ProceduresReferred By Contact Referred To ContactRadiology Diagnoses Encounter for screening mammogram for malignant neoplasm of breast Procedures [facility] BRIAN DIGITAL SCREEN BILATERAL Back[place] [address] Phone: tel: fax: Referral IDStatusReasonStart DateExpiration DateVisits RequestedVisits [id number]/27/20254/ [facility] for visit Narrative* Imaging (Emergency) - Pending ReviewSpecialtyDiagnoses / ProceduresReferred By ContactReferred To ContactRadiology Diagnoses Pain in right foot Procedures MRI FOOT RIGHT W WO CONTRAST Robbin Sánchez, DPMónica [address], [place] [address] Phone: tel: fax: Referral IDStatusReasonStart DateExpiration DateVisits RequestedVisits [id number] Review [facility] Summary Purpose Family History No Family [...] PMFull Code03/05/2017 10:05 AM03/05/2017 12:56 PMDate ActivatedDate ZjwmzkuqlapXuwlbbef91/11/2018 4:17 PM08/25/2018 8:55 PMDate ActivatedDate InactivatedComments03/19/2017 1:37 PM03/19/2017 4:32 PMDate ActivatedDate InactivatedComments03/19/2017 10:57 AM03/19/2017 1:37 PMDate ActivatedDate InactivatedComments03/05/2017 12:56 PM03/05/2017 3:55 PMDate Activated Date InactivatedComments03/05/2017 10:05 AM03/05/2017 12:56 PMDate ActivatedDate CldzkrvitdtQoaotzoq92/11/2018 4:17 PM08/25/2018 8:55 PMDate ActivatedDate InactivatedComments03/19/2017 1:37 [...] Everywhere. * Back Care Basics: General Info (Omani) * Back: Preventing Injuries (Omani) documented in this encounter Reason for Referral StatusReasonSpecialtyDiagnoses / ProceduresReferred By ContactReferred To ContactClosedRadiology Diagnoses Brachial neuritis Peripheral nerve disorder Spasm of muscle Procedures MR Cervical Spine Without Contrast Trace Casas MD [address] [place] [address] SpecialtyDiagnoses / ProceduresReferred By ContactReferred To ContactRadiology Diagnoses Neck mass Procedures US HEAD NECK SOFT TISSUE THYROID Felipe Adam MD [address] [place] [address] Referral IDStatusReasonStart DateExpiration DateVisits RequestedVisits [id number]/23/[id number] / Procedures Referred By ContactReferred To ContactRadiology Diagnoses Thyroid nodule Procedures US THYROID Back, MD [address] [place] [address] Referral IDStatusDino DateExpiration DateVisits RequestedVisits [id number] Chief Complaint and Reason for Visit Chief Complaint M54.16 M79.10 M79.60 9 R20.9 Chief Complaint Unknown Additional Source Comments INFORMATION SOURCE (unrecogn ized section and content) DATE CREATED AUTHOR 03/30/2018 [facility] DATE CREATED AUTHOR AUTHOR'S ORGANIZ ATION 03/30/2018 [facility] DATE CREATED AUTHOR AUTHOR'S ORGANIZ ATION 09/15/2018 [facility] DATE CREATED AUTHOR AUTHOR'S ORGANIZ ATION 09/23/2018 [facility] DATE CREATED AUTHOR AUTHOR'S ORGANIZ ATION 09/26/2018 [facility] DATE CREATED AUTHOR AUTHOR'S ORGANIZ ATION 12/10/2018 [facility] DATE CREATED AUTHOR AUTHOR'S ORGANIZ ATION 12/18/2018 [facility] DATE CREATED AUTHOR AUTHOR'S ORGANIZ ATION 02/11/2019 [facility] DATE CREATED AUTHOR AUTHOR'S ORGANIZ ATION 11/30/2021 [facility] DATE CREATED AUTHOR AUTHOR'S ORGANIZ ATION 05/01/2022 [facility] DATE CREATED AUTHOR AUTHOR'S ORGANIZ ATION 01/12/2023 [facility] DATE CREATED AUTHOR AUTHOR'S ORGANIZ ATION 02/15/2023 [facility] DATE CREATED AUTHOR AUTHOR'S ORGANIZ ATION 04/04/2023 [facility] DATE CREATED AUTHOR AUTHOR'S ORGANIZ ATION 02/20/2024 [facility] DATE CREATED AUTHOR AUTHOR'S ORGANIZ ATION 10/17/2024 [facility] DATE CREATED AUTHOR AUTHOR'S ORGANIZ ATION 02/14/2025 [facility] DATE CREATED AUTHOR AUTHOR'S ORGANIZ ATION [address]25 [facility] EPIC DATE CREATED AUTHOR AUTHOR'S ORGANIZ ATION 08/04/2025 [facility] Reason for Visit (unrecogniz ed section and content) ReasonCommentsSleep ApneaSpecialtyDiagnoses / ProceduresReferred By Contact Referred To ContactNeurology Diagnoses BUCK on CPAP Procedures CA OFFICE/OUTPATIENT NEW HIGH MDM 60 MINUTES Fozia Meng, CLIENT BUSINESS MANAGER [address], [facility] [address] [place] [address] Phone: tel: fax: Lynn Block MD [address] [place] [address] Phone: tel: fax: Referral IDStatusReasonStart DateExpiration DateVisits RequestedVisits [id number] Specialty Services Required /[id number]pgndti / ProceduresReferred By ContactReferred To ContactClosedRadiology Diagnoses Brachial neuritis Peripheral nerve disorder Spasm of muscle Procedures MR Cervical Spine Without Contrast Trace Casas MD [address] [place] [address] SpecialtyDiagnoses / ProceduresReferred By ContactReferred To Contact Occupational Therapy Diagnoses Carpal tunnel syndrome Carpal Tunnel Syndrome Procedures Eval and treat Keenan Lozano MD [address] [facility] [address] [place] [address] [facility] [address] [place] [address] Referral IDStatusReasonStben DateExpiration DateVisits RequestedVisits [id number]/17/20223/[id number] / Procedures Referred By ContactReferred To ContactPhysical Therapy Diagnoses Radiculopathy, lumbar region Lumbar Radiculopathy Procedures Eval and treat Janel Allen, MULE DEVELOPER - SENIOR ELECTRICAL PROJECT MANAGER [address] [place] [address] [facility] [address] [place] [phone] Referral IDStatusReasonStart DateExpiration DateVisits RequestedVisits [id number] / Procedures Referred By ContactReferred To ContactRadiology Diagnoses Neck mass Procedures US HEAD NECK SOFT TISSUE THYROID Felipe Adam MD [address] [place] [address] Referral IDStatusReasonStart DateExpiration DateVisits RequestedVisits [id number]/23/20228/[id number] / Procedures Referred By ContactReferred To ContactRadiology Diagnoses Pain of foot, unspecified laterality Closed nondisplaced fracture of lateral cuneiform of left foot, initial encounter Procedures MRI FOOT LEFT W WO CONTRAST MRI FOOT LEFT W WO CONTRAST Robbin Sánchez, DPM [address] [facility], [place] [address] Referral IDStatusMerlynsaint luke's health systemStart DateExpiration DateVisits RequestedVisits [id number]/16/20229/[id number] Class SpecialtyDiagnoses / ProceduresReferred By ContactReferred To ContactDiabetes Services Diagnoses Pre-diabetes Felipe Adam MD [address] [place] [id number] [facility] [address] [place] [phone] Referral IDStatusReasonStart DateExpiration DateVisits RequestedVisits [id number] Specialty Services Required /[id number] / ProceduresReferred By ContactReferred To ContactDiabetes Services Diagnoses Pre-diabetes Felipe Adam MD [address] [place] [address]38337 [facility] [address] [place] [address] ReasonCommentsOtherLeft foot charcot on-going since 06/2022. New x-rays today. 2nd of opinion.SpecialtyDiagnoses / ProceduresReferred By ContactReferred To ContactRadiology Diagnoses Thyroid nodule Procedures US THYROID Felipe Adam MD [address] [place] [phone] Referral IDStatusReasonStart DateExpiration DateVisits RequestedVisits [id number] Svkchl86/[id number] DateCommentsMed Bxcakx2710/05/2024ReasonCommentsNew PatientFNA - THYROID NODULESpecialtyDiagnoses / ProceduresReferred By ContactReferred To ContactOtolaryngology Diagnoses Thyroid nodule Felipe Adam MD [address] [place] [address] Phone: tel: fax: Dimas Adair MD [address] [place] [address] Phone: tel: fax: Referral IDStatusReasonStart DateExpiration DateVisits RequestedVisits [id number] [id number] UlcerNiranjan presents to ER with a skin [...] DateEnd Date Felipe Adam MD [address] [place] [phone] PCP - GeneralInternal Medicine11/14/11Team MemberRelationshipSpecialtyStart Date End Date Back, MD Felipe [address] [place] [phone] PCP - GeneralInternal Medicine11/14/11Team MemberRelationshipSpecialtyStart Date End Date Back, MD [address] [place] [address] PCP - GeneralInternal Medicine11/14/11Team MemberRelationshipSpecialtyStart Date End Date Back, MD Felipe [address] [place] [address] PCP - GeneralInternal Medicine11/14/11Team MemberRelationshipSpecialtyStart Date End Date Back, MD Felipe [address] [place] [address] PCP - GeneralInternal Medicine11/14/11Team MemberRelationshipSpecialtyStart Date End Date Back, MD Felipe [address] [place] [address] PCP - GeneralInternal Medicine11/14/11Team MemberRelationshipSpecialtyStart Date End Date Back, MD Felipe [address] [place] [phone] PCP - GeneralInternal Medicine11/14/11 Team Status: Inactive Member Role Status Dates NON STAFF Primary Care Provider Active Trace Casas MDA[facility] ProviderActive Team Status: Active Member Role Status Dates NON STAFF Primary Care Provider Active Team MemberRelationshipSpecialtyStart DateEnd Date Back, MD [address] [place] [address] PCP - GeneralInternal Medicine11/14/11Team MemberRelationshipSpecialtyStart Date End Date Back, MD Felipe [address] [address] PCP - GeneralInternal Medicine11/14/11Team MemberRelationshipSpecialtyStart Date End Date Back, MD Felipe [address] [place] [address] PCP - GeneralInternal Medicine11/14/11Team MemberRelationshipSpecialtyStart Date End Date Back, MD Felipe [address] [place] [address] PCP - GeneralInternal Medicine11/14/11Team MemberRelationshipSpecialtyStart Date End Date Back, MD Felipe [address] [place] [address] PCP - GeneralInternal Medicine11/14/11Team MemberRelationshipSpecialtyStart Date End Date Back, MD Felipe [address] [address] PCP - GeneralInternal Medicine11/14/11Team MemberRelationshipSpecialtyStart Date End Date Back, MD Felipe [address] [place] [phone] PCP - GeneralInternal Medicine11/14/11Team MemberRelationshipSpecialtyStart Date End Date Back, MD Felipe [address] [place] [phone] PCP - GeneralInternal Medicine11/14/11Team MemberRelationshipSpecialtyStart Date End Date Back, MD Felipe [address] [place] [id number] PCP - GeneralInternal Medicine03/26/15Team MemberRelationshipSpecialtyStart Date End Date Back, MD Felipe [address] [place] [phone] PCP - GeneralInternal Medicine11/14/11 Team Status: Inactive Member Role Status Dates Frances Harris DPM MS Attending Provider Active Start: February 15, 2024 End: February 15, 2024Team MemberRelationshipSpecialtyStart DateEnd Date Back, MD [facility] PCP - GeneralInternal Medicine11/14/11Team MemberRelationshipSpecialtyStart Date End Date Back, MD Felipe [address] [place] [phone] PCP - GeneralInternal Medicine11/14/11Te MemberRelationshipSpecialtyStart Date End Date Back, MD Felipe [address] [place] [id number] PCP - GeneralInternal Medicine03/26/15Team MemberRelationshipSpecialtyStart Date End Date Back, MD Felipe [address] [place] [address]337 PCP - GeneralInternal Medicine03/26/15Team MemberRelationshipSpecialtyStart Date End Date Back, MD Felipe [address] [facility], [facility] PCP - GeneralInternal Medicine11/14/11Team MemberRelationshipSpecialtyStart Date End Date Back, MD Alcides [address] [place] [id number] PCP - GeneralFamily Medicine12/08/24Team MemberRelationshipSpecialtyStart DateEnd Date Back, MD Alcides [address] [facility], [facility] PCP - GeneralFamily Medicine12/08/24Team MemberRelationshipSpecialtyStart DateEnd Date Back, MD Felipe [address] [facility], [place] [address] PCP - GeneralInternal Medicine2Team MemberRelationshipSpecialtyStart Date End Date Back, MD Alcides [address] [facility], [place] [address] PCP - GeneralFamily Medicine12/08/24Team MemberRelationshipSpecialtyStart DateEnd Date Back, MD Felipe [address] [facility], [place] [address] PCP - GeneralInternal Medicine11/14/11Team MemberRelationshipSpecialtyStart Date End Date Back, MD Alcides [address] [facility], [place] [address] PCP - GeneralFamily Medicine12/08/24Team MemberRelationshipSpecialtyStart DateEnd Date Back, MD Alcides [address] [facility], [place] [address] PCP - GeneralFamily Medicine12/08/24Team MemberRelationshipSpecialtyStart DateEnd Date Back, MD Alcides [address] [place] [address] PCP - GeneralFamily Medicine12/08/24Team MemberRelationshipSpecialtyStart DateEnd Date Back, MD Alcides [address] [place] [address] PCP - GeneralFamily Medicine12/08/24Team MemberRelationshipSpecialtyStart DateEnd Date Back, MD Felipe [address] [facility], [place] [address] PCP - GeneralInternal Medicine11/14/11Team MemberRelationshipSpecialtyStart Date End Date Back, MD Felipe [address] [facility], [place] [address] PCP - GeneralInternal Medicine11/14/11Team MemberRelationshipSpecialtyStart Date End Date Back, MD Alcides [address] [facility], [place] [address] PCP - GeneralFamily Medicine12/08/24Team MemberRelationshipSpecialtyStart DateEnd Date Back, MD Felipe [address] [facility], [place] [address] PCP - GeneralInternal Medicine11/14/11Team MemberRelationshipSpecialtyStart Date End Date Back, MD Alcides [address] [place] [address] PCP - GeneralFamily Medicine12/08/24Team MemberRelationshipSpecialtyStart DateEnd Date Back, MD Alcides [address] [place] [address] PCP - GeneralFamily Medicine12/08/24Team MemberRelationshipSpecialtyStart DateEnd Date Back, MD Felipe [address] [place] [address] PCP - GeneralInternal Medicine11/14/11Team MemberRelationshipSpecialtyStart Date End Date Alcides Adam MD [address] [place] [address] PCP - GeneralFamily Medicine12/08/24 Goals (unrecognized section [...] BE BASED ON THE PRIMARY CLINICAL RECORDS. [facility]. provides no warranty or guarantee of the accuracy or completeness of information in this document.
--- NOTE | 2025-08-11 13:27 | CT_ITS ---
The [address] [address] Patient Name: CHASTITY GASPAR MRN: [id number] date: 1980 Sex: F Assigned Patient Location: CT Current Patient Location: CT Accession/Order Number: [id number] Exam Date: 08/11/2025 13:35 Report Date: 08/11/2025 16:38 At the request of: DAMON PROCTOR Procedure: CT foot LT wo con CT foot LT wo con 08/11/2025 1:44 PM SIGNS AND SYMPTOMS: ^Charcot's joint, Left, Type 2 diabetes with foot ulcer TECHNIQUE: Multidetector CT axial slices of the left foot without IV contrast. Multiplanar reformats were performed and viewed on a separate workstation and reviewed to further define anatomy and possible pathology. CT was performed with one or more of the following dose reduction techniques: Automated exposure control, adjustment of the mA and/or kV according to patient size, or use of iterative reconstruction technique. COMPARISON: 11/18/2024 FINDINGS: There is redemonstration of hardware fixation from the first metatarsal through the talus, across the subtalar joints, and across the second and third tarsometatarsal junctions. There is lucency surrounding the screw traversing the first metatarsal. This suggesting hardware loosening. This is also seen along the talus involving the screws traversing the base of the second and third metatarsals. Bony destructive changes are noted throughout the tarsal bones and at the base of the metatarsals diffusely consistent with Charcot arthropathy. There is a remote hardware tracks across the tibiotalar junction. No focal osteopenia to suggest osteomyelitis. There is diffuse soft tissue swelling consistent with cellulitis. There is ulceration along the inner arch of the plantar surface of the foot. CT/CT foot LT wo con IMPRESSION: There is diffuse soft tissue swelling consistent with cellulitis. There is ulceration along the inner arch of the plantar surface of the foot. Charcot arthropathy is noted similar to the prior radiographs with hardware fixation. There is suggestion of hardware loosening involving the screw traversing the first metatarsal and anterior talus as well as the screws traversing the second and third metatarsals and talus. No definite evidence of osteomyelitis. Impression dictated by: Nash Doyle M.D. 08/11/2025 4:38 PM Dictation Location: [place] [address] Electronically authenticated by: [id number] Y Date: 08/11/2025 16:38
== END 2025-08-11 13:20 | disposition home or self-care (01) ==
LOC: CT 13:20
PROVIDERS: PCP Internal Medicine; Visit Provider Physician Assistant
DX: M14.672 Charcot's joint, left ankle and foot (principal); E11.621 Type 2 diabetes mellitus with foot ulcer; L97.422 Non-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 with fat layer exposed; L03.116 Cellulitis of left lower limb
CPT/HCPCS: 73700; 76376

== ENCOUNTER 2025-08-16 10:44 | Outpatient (OUT) | payer OTHER, SELFPAY ==
--- OUTSIDE RECORDS SUMMARY | 2024-03-15 05:40 | XMS_ITS ---
Author Organization The [facility] in [place] Address [address] [place] [address] Care Team Providers Care Brand Executive Name Role Phone None, Unknown or Primary Care Provider Unavailab Roxanne Rodríguez Unavailable [phone] REASON FOR VISIT splint change, skin check Encounters Encounter Location Date Provider Diagnosis The [facility] (PODIATRY) [address] [place] [address] [place] [address] 03/15/2024 Roxanne Segura Plan Of Treatment No Information Progress Notes * Celina GASPAR MDOB: 9 (45 yo F)Acc No.[id number]:03/15/2024 UNLOCKED PROGRESS NOTE Progress Note Patient: Celina DRAKE :?SABINA MckeonCDOB:1980???Age:43 Y ???Sex:FemaleDate:4Phone:[phone]:[address] [facility]Pcp:Unknown or None Subjective: * Chief Complaints: * 1 . Splint change, skin check. * Medical History: Objective: * Vitals: Assessment: Plan: * Treatment: * * Electronic signature of Roxanne Segura PA-C on 08/16/2025 at 10:49 AM ESTSign off status: PendingVisit Status:?CANC (Cancelled) * Provider: Brady Segura PA-C Date: 0 03/15/2024 Generated for Printing/Faxing/eTransmitting on:?08/16/2025 10:49 AM EST
--- OUTSIDE RECORDS SUMMARY | 2024-04-14 06:20 | XMS_ITS ---
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 Training Name Role Phone None, Unknown or Primary Care Provider Unavailab Roxanne Rodríguez Unavailable [phone] Encounters Encounter Location Date Provider Diagnosis [facility] (PODIATRY) [address] [place] [address] [place] [address] 04/14/2024 Roxanne Segura Plan Of Treatment No Information Progress Notes * Celina GASPAR MDOB: 9 (45 yo F)Acc No.[id number]:04/14/2024 UNLOCKED PROGRESS NOTE Nurse Visit Patient: Rubén Celina YAÑEZ :?SABINA MckeonCDOB:1980???Age:43 Y ???Sex:FemaleDate:4Phone:[phone]:23 [place], [place]-[address]Pcp:Unknown or None Subjective: * Chief Complaints: * * Medical History: Objective: * Vitals: Assessment: Plan: * Treatment: * * Electronic signature of Roxanne Segura PA-C on 08/16/2025 at 10:49 AM ESTSign off status: PendingVisit Status:?CANC (Cancelled) * Provider: Brady Segura PA-C Date: 0 04/14/2024 Generated for Printing/Faxing/eTransmitting on:?08/16/2025 10:49 AM EST
--- OUTSIDE RECORDS SUMMARY | 2025-08-16 10:49 | XMS_ITS | Clinical Summary ---
Author Organization [facility] Address [address] [place] [address] Care Team Providers Care Oncology Patient Navigator Name Role Phone BackAlcides MD Primary Care Provider [phone] Allergies No known active allergies Medications MedicationSigDispense [...] 08/19/2017Active Active Problems ProblemNoted DateDiagnosed DateBasal cell kfgducmnm45/26/2017 Overview (09/29/2017): Added automatically from request for surgery [id number] Basal cell carcinoma of skin of face09/16/2017Neoplasm of uncertain behavior of skin Social History Tobacco UseTypesPacks/DayYears UsedDateSmoking Tobacco: NeverSmokeless Tobacco: NeverAlcohol UseStandard Drinks/WeekCommentsNo0 (1 standard drink = 0.6 oz pure alcohol)CommentsUnknownSex and Gender InformationValueDate RecordedSex Assigned at BirthNot on fileLegal IcfJtntqa87/06/2017 7:26 PM ESTGender Identity Rmgwai8806/25/2017 9:30 AM EDTSexual OrientationNot on file Last Filed Vital Signs Vital SignReadingTime TakenCommentsBlood Euhpkmpn881/78011/24/2017 12:00 PM EST Pxduo500311/24/2017 12:00 PM UQEXfqzgzxksdz58.6 ??C (97.9 ??F)11/24/2017 12:00 PM ESTRespiratory Qnpx514810/09/2017 11:44 AM ESTOxygen Xlpuwpdltu68%10/09/2017 11:44 AM ESTInhaled Oxygen Concentration--Crdvrg613.5 kg (221 lb 8 oz)02/26/2022 2:01 PM KQDHvfyeb651.8 cm (5' 2.5 )02/26/2022 2:07 PM EDTBody Mass Index39.87 02/26/2022 2:01 PM EDT Plan of Treatment Health MaintenanceDue DateLast DoneCommentsHEPATITIS C VIRUS FAJMWJLTP1979 HIV SCREENING HQYASQKCLR11/25/1994HEP B VACCINE (1 of 3 - 19+ 3-dose series) 1998CERVICAL CANCER SCREENING JOHXSONEGN96/25/2000LIPID SCREENING 2019MAMMOGRAM SCREENING GXOPLNKGSM54/25/2019COLORECTAL CANCER SCREENING VLELDFGDWE49/25/6110IOEEZHZ25COVID-19 VACCINE ( - season)2025INFLUENZA VACCINE (#1)2025TDAP (ADULT)Ltndcgdsn90/05/2014 PNEUMOCOCCAL VACCINE SERIESAged OutNo longer eligible based on patient's age to complete this topic Insurance Care Teams Team MemberRelationshipSpecialtyStart DateEnd Date Back, MD Alcides [address] [place] [address] PCP - GeneralInternal Etnszpxf63/27/17
--- OUTSIDE RECORDS SUMMARY | 2025-08-16 10:49 | XMS_ITS | Continuity of Care Document ---
Author Organization [facility] Address [address] [place] [id number] Phone [phone] Care Team Providers Care Tandem Mill Operator Name Role Phone Back, Alcides MELENDREZ Care Team Information Basting Cleaner [phone] Problems Active Problems Provider Date Chronic kidney [...] Range N [place]te .Urine Protein/Creat. Random 06/12/2025 [place], [place] [phone].Urine Protein Random<4.Urine Creatinine Lkdjrx65.4.V Ipth-Vitamin D006/12/2025[place], [place] [phone].Ipth40.0.Vitamin D, 25 Jbpohfh29.2.Renal Panel06/12/2025[place], [place] [phone].Albumin4.2.Calcium9.2.Carbon Oveiyfw66.Opdpmjes74.Phosphorus3.9 .Potassium4.5.Gtcxqi154.BUN23.GFR Zxhztuneq40Qzsa78.Creatinine-LC1.3.Urine Protein/Creat. Sfacfz9705/10/2024[place], [place] [phone].Urine Protein Random9.Urine Creatinine Iksamw035.0.Urine Prot/Creat Ratio0.07.Ibbztuxti15/06/2024[place], [place] [phone].Magnesium2.2.Urinalysis-Prqcxjp6705/10/2024[place] [phone] Specific Gravity1.020Ua PH Test Strip5.0Ua ColoryellowUa AppearanceclearUa ProteintraceUa GlucosenegativeUa KetonesnegativeUa Bilirubin negativeUa UrobilinogennormalUa NitritenegativeUa Occult Bloodnegative.Renal Panel05/10/2024[place], [place] [phone].Albumin4.2.Calcium9.2.Carbon Yverust13.Cquzxsou391.Phosphorus3.8 .Potassium4.0.Otikmx197.BUN19.GFR Prnbywukj50Rkbc61.Creatinine-LC1.3.Renal Panel 05/17/2023[place], [place] [phone].Albumin4.1.Calcium9.5.Carbon Rdbthpf43.Niwhxiad737.Phosphorus3.0 .Potassium4.3.Oywqtb283.BUN17.GFR >27Vhzi73.Creatinine-LC1.1.Urine Protein/Creat. Htgiam2005/17/2023[place], [place] [phone].Urine Protein Vosnqm72.Urine Creatinine Iwkokt025.1.Urine Prot/Creat Ratio0.07.Ipth05/17/2023[place], [place] [phone].Ipth47.1.Vitamin D, 25 Jgdqchn8105/17/2023[place] [phone].Vitamin D, 25 Zfzcwnj45.1.Urine Protein/Creat. Gjtqrv5005/20/2022 [place] [phone].Urine Protein Random7.Urine Creatinine Ywqfnh53.1.Urine Prot/Creat Ratio0.07.Tibc-LC05/20/2022[place], [place] [phone].Tibc-LC263.Zwgvhazy38/16/2022[place] [phone].Spvooywz679.Iron05/20/2022[place] [phone].Iron48.Transferrin-LC05/20/2022[place] [phone].Transferrin-LC280.T-Sat-LC05/20/2022[place] [phone].T-Sat-LC0.18.V Ipth-Vitamin D005/20/2022[place] [phone].Ipth39.91.Vitamin D, 25 Dutpigo65.3.Bmlodkmom66/16/2022[place] [phone].Magnesium2.1.Hemoglobin And Cezgobbkye25/16/2022[place] [phone].Hemoglobin Blood11.1.Zitmxjdrjz87.3.Renal Panel05/20/2022[place] [phone].Albumin4.4.Yqvuyow80.0.Carbon Tvvfmxv41.Plxegeeq759.Phosphorus3.8 .Potassium4.3.Rushir565.BUN18.GGG47Bbvg60.GFR Wgkrdjmqw78Exze54.Creatinine-LC 1.13.Renal Panel (Other Labs)05/21/2021[place], [place] [phone].Albumin4.2.Calcium9.2.Carbon Zyrmpqq51.Gmushlgs898.Creatinine-LC 1.18.Phosphorus3.7.Pibokp930.BUN19.XZM51Hnha72.Potassium4.2.Urine Protein/Creat. Owyffa4805/21/2021[place], [place] [phone].Urine Protein Random7.Urine Creatinine Zkfsnb205.7.Magnesium 05/21/2021[place] [phone].Magnesium2.2.Urinalysis-Lwvvuql4705/21/2021[place] [phone] Specific Gravity1.020Ua PH Test Strip5.0Ua ColorYELLOWUa AppearanceCLEARUa ProteinTRACEUa GlucoseNEGATIVEUa KetonesNEGATIVEUa UrobilinogenNORMALUa Occult BloodNEGATIVE.Ua05/25/2020[place] [phone] AppearanceclearUa Bilirubin-Ua Blood-Ua ColoryellowUa Glucose 100mg/dlUa Leuko-Ua Nitrite-Ua PH Test Strip6.0Ua Protein-Ua Specific [place] 1.020Ua Urobilinogen-.Urine Protein/Creat. Whebwa0605/25/2020[place] [phone].Urine Protein Random8.Urine Creatinine Sffonw358.2.Urine Prot/Creat Ratio0.08.Renal Panel05/25/2020[place] [phone].Albumin4.4.Yhydeyz33.1.Carbon Dkoipyw04.Vxhravto787.Creatinine-LC 1.37.Dxjaxaobxd11.Lkgjak270.BUN24.GFR-NX09Edki29.Potassium4.6.Renal Panel 06/17/2019[place] [phone].Albumin4.3.Txgvmun32.4.Carbon Ovzizkc26.Raxyaexo369.Creatinine-LC 1.27.Phosphorus3.0.Klpvvj177.BUN18.GFR-ZO80Mqbs83.Potassium3.8.Ua06/17/2019[place] [phone] AppearanceHAZYUa Bacteria1+Ua BilirubinNEGUa BloodNEGUa Color YELLOWUa Epithelial Cells QL2-5Ua GlucoseNEGUa KetonesNEGUa LeukoNEGUa Nitrite NEGUa PH Test Strip6.0Ua ProteinTRACEUa Specific Gravity1.025Ua Urobilinogen NORMALUa WBC0-2.Urine Protein/Creat. Ukirps3106/17/2019[place] [phone].Urine Protein Qqqnnl09.Urine Creatinine Xcxjae377.2.Urine Prot/Creat Ratio0.08.Ibuzknzso81/13/2019[place] [phone].Magnesium2.3.Hemoglobin And Fuiznjgvmd78/13/2019[place] [phone].Hemoglobin Blood12.1.Iaclmckect61.4.Renal Panel -LC04/14/2018 [place] [phone].Albumin3.7.Calcium8.9.Carbon Uaqazas38.Clbbhsaa145.Creatinine-LC 1.28.Phosphorus3.6.Ujhgnz639.BUN19.GFR-YU94Dndf26.Potassium4.1.Urine Protein/Creat. Fukbrw2604/14/2018[place] [phone].Urine Protein Random7.Urine Creatinine Yuxebc883.7.Urine Prot/Creat Ratio0.07.CBC W/Fzwppygzufhf44/11/2018[place] [phone].White Blood Count8.6.Red Blood Count4.40.Hemoglobin Blood13.3 .Tvzyyqgtaj70.4MCH (Corpuscular Hemoglobin)30.2MCHC (Corpuscular Hemog Conc)33.7 RDW15.6.Platelet Count Fpvkr592Ioafeyxymza68Rdvbc Wbhpphckqyg13Hguyxuvel7Rooan Body Ktfiynkdoxe2Rubjiiqwz %1Absolute Basophils0.10Absolute Eosinophils0.20 Absolute Lymphocytes2.70Absolute Monocytes0.50.Ipth04/14/2018[place] [phone].Ipth63.19Hrrl5111/18/2017[facility], Abdomen, W/ ContrastSEE JYLVLKKzdx10/14/2018[facility], Abdomen, W/ ContrastCORTICAL CYST L KIDY.Urinalysis-Rnritls0311/17/2017 [facility] [phone] UrineNO SIGNIFICANT H.Urinalysis-Zxyjdwy0011/17/2017[facility] [phone] Specific Gravity1.014Ua PH Test Strip6.0Ua ColorYELLOWUa AppearanceHAZYUa WBC6Ua ProteinNEGUa GlucoseNEGUa KetonesNEGUa BilirubinNEGUa Urobilinogen<2.0Ua NitriteNEGUa Occult BloodMOD.CMP11/17/2017[facility] [phone].Albumin3.1.Alt18.Calcium8.6.Carbon Rpaqgyc52.Jkhkuwte119 .Creatinine-LC1.13.Glucose Uxurk446.Alkaline Phos78.Potassium3.7.Protein-Total 6.8.Lavglb938.Ast7.BUN17.GFR Zxcdixpez09Uiys92.Urine Prot/Creat Ratio02/17/2017 [place] [phone].Urine Prot/Creat Ratio0.07Miscellaneous Other02/17/2017[place] [phone] Test - Put Test In Ordercompleted.Renal Panel -LC02/17/2017 [place] [phone].Albumin4.1.Calcium9.4.Carbon Xlxprhd25.Xzvfllwp106.Creatinine-LC 1.31.Phosphorus3.4.Eplctw431.BUN21.GFR-SY89Xenn65.Potassium4.1.BMP W/Egfr-LC 08/07/2016[facility] [phone].Anqsdc394.Potassium4.3.Abhglniy553.Carbon Hdkrbjy86.Calcium9.5 .Glucose Vxjpb679.GFR-YJ17Syan93.Creatinine-LC1.17.BUN16.Hemoglobin A1c-LC 08/07/2016[facility] [phone].Hemoglobin B7j-JT2.1.Lipid Panel08/07/2016[facility] [phone].Rdjemsaymue818.Cholester/HDL Ratio6.2High Density Uahfitvclsf49 .LDL/HDL Ratio79.LDL Chjxsmbuuev966.Kjkfmrpattjjs862.CBC W/O Differential 08/07/2016[facility] [phone].Vduogfeimw80.1.Hemoglobin Blood12.6.Platelet Count Dvnsq216.Red Blood Count4.16TLL82.2.White Blood Count7.6MCH (Corpuscular Hemoglobin)29.8MCHC (Corpuscular Hemog Conc)34.1Urine Vzxsewx8606/08/2015[place], [place] [phone] Urine Routinesee report.Urinalysis-Atqzbxr4006/08/2015[place] [phone] Specific Gravity1.020Ua PH Test Strip5.0Ua ColoryellowUa AppearanceclearUa ProteinnegativeUa GlucosenegativeUa BilirubinnegativeUa UrobilinogennormalUa Nitritenegative.Urine Protein/Creat. Xfzvti7706/08/2015[place] [phone].Urine Protein Zlsrpa20.Urine Creatinine Fkrowp375.4.Urine Prot/Creat Ratio0.05.Renal Panel06/08/2015[place] [phone].Albumin4.0.Calcium8.9.Carbon Cmsyicw66.Rjzawiky869.Creatinine-LC 1.29.Phosphorus3.0.Potassium3.6.Gwelcl350.BUN14.GFR-EW99Jdjf59.Hemoglobin And Wukyolbgba36/04/2015[place] [phone].Hemoglobin Blood12.8.Lthjmxxfpq63.2.Ua12/29/2014[place] [phone] AppearanceclearUa BilirubinnegativeUa BloodtraceUa Coloryellow Ua Epithelial Cells QL2 to 5Ua GlucosenegativeUa LeukonegativeUa Nitritenegative Ua PH Test Strip5.0Ua ProteinnegativeUa RBC0 to 2Ua Specific Gravity1.020Ua Urobilinogennormal.Renal Panel12/29/2014[place], [place] [phone].Albumin4.1.Calcium9.7.Carbon Wmsefoj13.Annzjlkx426.Creatinine-LC 1.50.Phosphorus4.2.Potassium4.1.Sdlxgv288.BUN18.GFR-VT06Utld37.Urine Protein/Creat. Buuqkt0812/29/2014[place] [phone].Urine Protein Random6.Urine Creatinine Uiusyg625.0.Urine Prot/Creat Ratio0.05.Renal Panel12/06/2014[place] [phone].Albumin4.0.Calcium9.2.Carbon Vbwmsuv72.Srsopdws368.Creatinine-LC 1.32.Phosphorus3.0.Potassium4.3.Dggydf627.BUN17.GFR-PV01Lytc38.Urine Protein/Creat. Gjjlkn4612/06/2014[place] [phone].Urine Protein Random7.Urine Creatinine Fftoxp101.8.Urine Prot/Creat Ratio0.04.Ua12/06/2014[place] [phone] AppearanceclearUa Bacteria1+Ua BilirubinnegativeUa BloodtraceUa ColoryellowUa Epithelial Cells QL2 to 5Ua GlucosenegativeUa LeukonegativeUa NitritenegativeUa PH Test Strip6.0Ua ProteinnegativeUa RBC2 to 5Ua Specific Gravity1.020Ua Urobilinogennormal.Complement C306/13/2014[place] [phone].Complement C3140.Hzhcypwha40/09/2014[place] [phone].Magnesium2.3.Ktvtwyv6906/13/2014[place] [phone].Calcium9.1.Yczfxlwcgz52/09/2014[place] [phone].Phosphorus3.8.Urine Protein 24HR06/13/2014[place] [phone].Urine Protein Total 24H63.Urinalysis-Uvvuafa2706/13/2014[place] [phone] Specific Gravity1.015Ua PH Test Strip6.0Ua ColorYELLOWUa AppearanceCLEARUa ProteinNEGATIVEUa GlucoseNEGATIVEUa BilirubinNEGATIIVEUa UrobilinogenNORMALUa NitriteNEGATIVE.V Ipth-Vitamin D006/13/2014[place] [phone].Ipth49.31.Vitamin D, 25 Rsajznb13.9.Anca Panel-LC06/13/2014[place] [phone].Anca-C30.Anca-P7.Urine Protein Elect Ran06/13/2014[place] [phone] InterpretationNORMAL.GBM Antibody-LC06/13/2014[place] [phone].Jzct-FCQ-KK3.Complement Total (CH50)06/13/2014[place] [phone].Complement Total (CH50)115.Complement C406/13/2014[place] [phone].Complement C429.Ipth06/13/2014[place] [phone].Ipth49.31.Lipid Panel06/13/2014[place] [phone].Vrrzvttenrf69.Cholester/HDL Ratio5.6High Density Vbrwtstlyzu13 .LDL/HDL Ratio58.LDL Arrscmwxkod409.Nekoaiajgrivp054.Immunofixation-Urine 06/13/2014[place] [phone].Immunofixation-UrineNEGATIVE.Vitamin D, 25 Ntlnbih1106/13/2014[place] [phone].Vitamin D, 25 Czotgee64.9.Qoqrkjwhpncf10/09/2014[place] [phone].Cryoglobulin0.Hepatitis B-Surface Iqclnyi4806/13/2014[place] [phone].Hepatitis B-Surface AntigenNON REACTIVE.Hepatitis C006/13/2014 [place] [phone].Hepatitis CNON REACTIVE.Immunofixation-Serum06/13/2014[place] [phone].Immunofixation-SerumNEGATIVE.Hemoglobin And Lesconxrmm65/09/2014 [place] [phone].Hemoglobin Blood13.0.Zqxatxvckd67.9.Urine Eosinophils Random 06/13/2014[place] [phone].Urine Eosinophils RandomNONE SEEN.BUN06/13/2014[place] [phone].BUN18.Creatinine-LC06/13/2014[place] [phone].Creatinine-LC1.27.GFR-LC06/13/2014[place] [phone].GFR-PE08Fohr59.Gnazqk1006/13/2014[place] [phone].Mtfbws608.Jhgccffbk27/09/2014[place] [phone].Potassium4.4.Rrtkmdwj74/09/2014[place] [phone].Hqwgfbxk466.Carbon Mvibrnx4106/13/2014[place] [phone].Carbon Ruggcyl78.Renal Panel05/30/2014[facility] [phone].Albumin3.9.Calcium9.3.Carbon Ookgbji38.Qazipzxv848.Creatinine-LC 1.41.Potassium3.6.Lmhruy515.BUN16.GFR-FB71Cbty99.GFR Luqjntpa91Ksfr21 .GFR Xihwwqwwz68Pzeb45.Urinalysis-Hbwcjky0905/30/2014[facility] [phone] Specific Gravity1.030Ua PH Test Strip5.0Ua ColoryellowUa AppearancehazyUa ProteinnegativeUa GlucosenegativeUa KetonesnegativeUa Bilirubin negativeUa UrobilinogennormalUa Nitritenegative.Renal Panel05/22/2014[facility] [phone].Albumin4.1.Calcium9.1.Carbon Fodkuru56.Eoamoakh612.Creatinine-LC 1.45.Potassium3.8.Jyfyvv771.BUN19.GFR-AL76Ayfp85.GFR Tdcqgkfs58Hgpu68 .GFR Fqtjechri65Ktqf40.Renal Panel01/13/2014[facility] [phone].Albumin4.1.Calcium9.3.Carbon Djrqjmk92.Wvrijhgk078.Creatinine-LC 1.26.Potassium4.1.Rmexhn811.BUN19.GFR-OW42Wrve99.GFR Agkhoauz52Xsis57 .GFR Njzappqhj27Lqvw35 Encounters Type Date Location Provider Dx Diagnosis Office Visit 06/14/2025 2:20p [facility] Heather Forbes M.D. N11.9 Chronic tubulo-interstitial nephritis, unspecified N18.31 Chronic kidney disea se, stage 3a Office Visit 05/13/2024 1:00p [facility] SHUKRI Sebastian N11.9 Chronic tubulo-interstitial nephritis, unspecified N18.31 Chronic kidney disea se, stage 3a Office Visit 05/18/2023 11:00a [facility] Jerica Stokes N11.9 Chronic tubulo-interstitial nephritis, unspecified N18.31 Chronic kidney disea se, stage 3a D50.9 Iron deficiency anem ia, unspecified E55.9 Vitamin D deficiency , unspecified Office Visit 05/23/2022 11:00a [facility] Jerica Stokes N11.9 Chronic tubulo-interstitial nephritis, unspecified N18.31 Chronic kidney disea se, stage 3a D50.9 Iron deficiency anem ia, unspecified E55.9 Vitamin D deficiency , unspecified Office Visit 05/22/2021 1:30p [facility] Tequlia Giles NP N11.9 Chronic tubulo-interstitial nephritis, unspecified N18.30 Chronic kidney disea se, stage 3 unspecified Office Visit 06/08/2020 11:20a [facility] Heather Forbes M.D. N11.9 Chronic tubulo-interstitial nephritis, unspecified N18.3 Chronic kidney disea se, stage 3 (moderate) Office Visit 06/22/2019 10:00a [facility] Heather Forbes M.D. N11.9 Chronic tubulo-interstitial nephritis, unspecified N18.3 Chronic kidney disea se, stage 3 (moderate) Office Visit 05/04/2018 10:20a [facility] Heather Forbes M.D. N11.9 Chronic tubulo-interstitial nephritis, unspecified N18.3 Chronic kidney disea se, stage 3 (moderate) Office Visit 03/13/2017 2:00p [facility] Heather Forbes M.D. N11.9 Chronic tubulo-interstitial nephritis, unspecified N18.3 Chronic kidney disea se, stage 3 (moderate) E78.1 Pure hyperglyceridem ia Office Visit 06/15/2015 1:00p [facility] Heather king M.D. 585.3 Chronic Kidney Disease Stage 3 582.89 Interstitial Nephrit is 530.81 Esophageal Reflux Office Visit 12/15/2014 1:00p [facility] BRENDEN Boyer P 585.3 Chronic Kidney Disease Stage 3 582.89 Interstitial Nephrit is V58.64 [facility] (Current)Us e Of Non-Steroid Antiinflammatories 530.81 Esophageal Reflux Office Visit 07/07/2014 11:40a [facility] Heather high M.D. 585.3 Chronic Kidney Disease Stage 3 582.89 Interstitial Nephrit is V58.64 [facility] (Current)Us e Of Non-Steroid Antiinflammatories 530.81 Esophageal Reflux Office Visit 06/09/2014 1:00p [facility] Matheus ngo 585.3 Chronic Kidney [...] 05/18/2023 N11.9 Chronic tubulo-i nterstitial nephritis, unspecified [place], Jerica 05/18/2023 N18.31 Chronic kidney disease, stag e 3a [place], Jerica 05/18/2023 D50.9 Iron deficiency anemia, unsp ecified Kike, Jerica 05/18/2023 E55.9 Vitamin D deficiency, unspec ified Kike, Jerica 05/23/2022 N11.9 Chronic tubulo-i nterstitial nephritis, unspecified [place], Jerica 05/23/2022 N18.31 Chronic kidney disease, stag e 3a Kike, Jerica 05/23/2022 D50.9 Iron deficiency anemia, unsp ecified [place], Jerica 05/23/2022 E55.9 Vitamin D deficiency, unspec ified Kike, Jerica 05/22/2021 N11.9 Chronic tubulo-i nterstitial nephritis, unspecified Heather Heidyna M.D. 05/22/2021 N11.9 Chronic tubulo-i nterstitial nephritis, unspecified Tequila Giles NP 05/22/2021 N18.30 Chronic kidney disease, stag e 3 unspecified Heather Benjaminadana M.D. 05/22/2021 N18.30 Chronic kidney disease, stag e 3 unspecified Tequila Giles, ELECTRONIC EQUIPMENT INSTALLER 06/08/2020 N11.9 Chronic tubulo-i nterstitial nephritis, unspecified [...] Chronic Kidney Disease Stage 3 Cheryl Palomo, CORE MACHINE TENDER 12/15/2014 582.89 Interstitial Nephritis Cheryl Palomo, CORE MACHINE TENDER 12/15/2014 V58.64 Jail (Curren t)Use Of Non-Steroid Antiinflammatories Cheryl Palomo, CORE MACHINE TENDER 12/15/2014 530.81 Esophageal Reflux Cheryl liang, CORE MACHINE TENDER 07/07/2014 585.3 Chronic Kidney Disease Stage 3 [...]
--- OUTSIDE RECORDS SUMMARY | 2025-08-16 10:50 | XMS_ITS | Patient Health Record ---
Author Organization [facility] [place] Address [address] [place] [address] Care Team Providers Care Disintegrator Name Role Phone None, Unknown or Primary Care Provider Unavailab Frances Plascencia [phone] Allergies Allergen (clinical drug ingredient) Drug/Non Drug Allergy documented on EMR Reaction Allergy Type Onset Date Status ChloraPrep One StepUnknownDrug AllergyActive Results Component Value Reference Range Notes XR foot LT min 3V (Not yet r eviewed by provider) Interpretation: Performing Lab: Notes/Report: Source Facility: [place] [address] XRay Report Signed Patient: CELINA GASPAR MR#: [id number] : 1980 Acct:[id number] Age/Sex: 44 / F ADM Date: 08/23/24 Loc: RAD Attending Dr: Frances Chase D.P.M. Ordering Physician: Frances Chase D.P.M. Date of Service: 08/23/24 Procedure(s): XR foot LT min 3V Accession Number(s): [id number] cc: Frances Chase D.P.M.; Physician,Non-Staff [place] [address] Patient Name: CELINA GASPAR MRN: [id number] date: 1980 Sex: F Assigned Patient Location: RAD Current Patient Location: Accession/Order Number: [id number] Exam Date: 08/23/2024 10:38 Report Date: 08/25/2024 [...] M.D. Signed By: 08/25/24616 DD/ 3 TD/TT: Radiation Monitor: XR foot LT min 3V (Not yet r eviewed by provider) Interpretation: Performing Lab: Notes/Report: Source Facility: [place] [address] XRay Report Signed Patient: CELINA GASPAR MR#: [id number] : 1980 Acct:[id number] Age/Sex: 44 / F ADM Date: 11/01/24 Loc: RAD Attending Dr: Frances Chase D.P.M. Ordering Physician: Frances Chase D.P.M. Date of Service: 11/01/24 Procedure(s): XR foot LT min 3V Accession Number(s): [id number] cc: Frances Chase D.P.M.; Physician,Non-Staff [place] [address] Patient Name: CELINA GASPAR MRN: [id number] date: 1980 Sex: F Assigned Patient Location: RAD Current Patient Location: Accession/Order Number: [id number] Exam Date: 11/01/2024 10:45 Report Date: 11/02/2024 [...] Signed By: 11/02/24 1312 DD/ 1309 TD/TT: Radiation Monitor: XR foot LT min 3V (Not yet r eviewed by provider) Interpretation: Performing Lab: Notes/Report: Source Facility: [place] [address] XRay Report Signed Patient: CELINA GASPAR MR#: [id number] : 1980 Acct:[id number] Age/Sex: 44 / F ADM Date: 11/18/24 Loc: EC Attending Dr: Frances Chase D.P.M. Ordering Physician: Frances Chase D.P.M. Date of Service: 11/18/24 Procedure(s): XR foot LT min 3V Accession Number(s): [id number] cc: Frances Chase D.P.M.; Physician,Non-Staff [place] [address] Patient Name: CELINA GASPAR MRN: [id number] date: 1980 Sex: F Assigned Patient Location: EC Current Patient Location: EC Accession/Order Number: [id number] Exam Date: 11/18/2024 10:55 Report Date: 11/18/2024 [...] Signed By: 11/18/24 1346 DD/ 1344 TD/TT: Radiation Monitor: CBC (COMPLETE BLOOD COUNT) * (Not yet reviewed by provider) Interpretation: Performing Lab:[facility], [address] [place] [address] PH:[phone] Notes/Report: WBC Count 3.8 3.5-11.0 k/uL RBC Count3.544.00-5.20 m/uLHemoglobin9.912.0-16.0 g/eRZwovpaywly84.336.0-46.0 % MCV91.280.0-100.0 fLMCH28.026.0-34.0 gyNCGW51.731.0-37.0 g/dLRDW19.412.1-15.2 % Platelet Zrsut927053-294 k/uLMPV11.76.0-12.0 fLCRP (Not yet reviewed by provider) Interpretation: Performing Lab:[facility], [address] [place] [address] PH:[phone] Notes/Report:C-Reactive Protein6.20.0-5.0 mg/LESR (Not yet reviewed by provider) Interpretation: Performing Lab:[facility], [address] [place] [address] PH:[phone] Notes/Report:Sedimentation Ecqs031-18 mm/HrBASIC METABOLIC PANL (Not yet reviewed by provider) Interpretation: Performing Lab:[facility], [address] [place] [address] PH:[phone] Notes/Report:NA (Sodium)817516-716 mmol/LK (Potassium)4.43.7-5.3 mmol/LChloride 07919-918 mmol/KCD09503-21 mmol/LAnion Gdx574-36 mmol/KFsapuwc27296-41 mg/dLBUN (Urea N)176-20 mg/dLCreatinine1.30.5-0.9 mg/vPsLMW37>60 mL/min/1.73m2 These results are not intended for [...] therapy that affects renal tubular secretion. Calcium9.38.6-10.4 mg/dLMORPHX (Not yet reviewed by provider) Interpretation: Performing Lab:[facility], [address] [place] [address] PH:[phone] Notes/Report:MorphologyMODERATE ANISOCYTOSISCBC (COMPLETE BLOOD COUNT) * (Not yet reviewed by provider) Interpretation: Performing Lab:[facility], [address] [place] [address] PH:[phone] Notes/Report:WBC Count9.93.5-11.0 k/uLRBC Count3.904.00-5.20 m/jENloylpdgla22.0 12.0-16.0 g/vTNqdhltplek48.336.0-46.0 %MCV87.980.0-100.0 fLMCH28.226.0-34.0 pg MCHC32.131.0-37.0 g/dLRDW17.112.1-15.2 %Platelet Zfrgk128535-681 k/uLMPV11.46.0- 12.0 fLCRP (Not yet reviewed by provider) Interpretation: Performing Lab:[facility], [address] [place] [address] PH:[phone] Notes/Report:C-Reactive Zhmkoya16.10.0-5.0 mg/LESR (Not yet reviewed by provider) Interpretation: Performing Lab:[facility], [address] [place] [address] PH:[phone] Notes/Report:Sedimentation Gpwb100-70 mm/HrBASIC METABOLIC PANL (Not yet reviewed by provider) Interpretation: Performing Lab:[facility], [address] [place] [address] PH:[phone] Notes/Report:NA (Sodium)594191-000 mmol/LK (Potassium)4.43.7-5.3 mmol/LChloride 62708-753 mmol/PHQ76244-70 mmol/LAnion Xkd58-18 mmol/FElmqdfx2365-30 mg/dLBUN (Urea N)196-20 mg/dLCreatinine1.40.5-0.9 mg/gJyRYK81>60 mL/min/1.73m2 These results are not intended for [...] following therapy that affects renal tubular secretion. Fjcoitn73.18.6-10.4 mg/dLXR foot LT min 3V (Not yet reviewed by provider) Interpretation: Performing Lab: Notes/Report: Source Facility: [facility]-[address] [place] [address] [place] [address] XRay Report Signed Patient: CELINA GASPAR MR#: [id number] : 1980 Acct:[id number] Age/Sex: 44 / F ADM Date: 09/20/24 Loc: RAD Attending Dr: Frances Chase D.P.M. Ordering Physician: Frances Chase D.P.M. Date of Service: 09/20/24 Procedure(s): XR foot LT min 3V Accession Number(s): [id number] cc: Frances Chase D.P.M.; Physician,Non-Staff [place] [address] Patient Name: CELINA GASPAR MRN: [id number] date: 1980 Sex: F Assigned Patient [facility]: [facility] Current Patient Location: Accession/Order Number: [id number] Exam Date: 09/20/2024 10:45 Report Date: 09/21/2024 [...] M.D. Signed By: 09/21/2459 DD/ 0656 TD/TT: Radiation Monitor: Reason For Referral Reason Referral to [facility] Diagnosis 1 Charcot's joint, lef t ankle and foot (M14.672) Referral Organization [facility] (PODIATRY) Referring Provider First Name Frances Referring [...] Vital Signs Heart Rate 88 /min 11/18/2024 Ifbtsxasqwq88.2 degrees Ttdikxwkcc01/14/2568Jsxkmjob35 %11/18/20245226Drajzd48 in 11/18/20249039Uzmvci739 lbs11/18/2024BMI36.58 kg/m211/18/2024 Encounters Encounter Location Date Provider Diagnosis [facility] (PODIATRY) [address] [place], [place] [address] [address] 11/18/2024 Frances Chase Pseudarthrosis after fusion or arthrodesis M96.0 ; Charcot's joint, left ankle and foot M14.672 and Pain in left foot M79.672 [facility] (PODIATRY) [address] [place] [address] [place] [address] 08/23/2024 Frances Chase Pain in left foot M79.672 ; Charcot's joint, left ankle and foot M14.672 and 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 [facility] (PODIATRY) [address] [place], [place] [address] [address] 09/20/2024 Frances Chase Pseudarthrosis after fusion or arthrodesis M96.0 ; Charcot's joint, left ankle and foot M14.672 ; Hereditary and idiopathic neuropathy, 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 and Pain in left foot M79.672 [facility] (PODIATRY) [address] [place], [place] [address] [address] 11/01/2024 Frances Chase Charcot's joint, lef t [...] after fusion or arthrodesis (ICD-10 - M96.0) 02/14/2025Pseudarthrosis after fusion or arthrodesis (ICD-10 - M96.0)Patient [...] Insured Coverage Start Date Coverage End Date [facility] [address] [place], [place] [id number] Celina Gaspar Self - patient is the [...] bilateral hands cholecystomyleft midfoot osteotomy and charcot dmaxpkkfgcznlq21/13/2024ack surgeryhysterectomyHospitalization History Reason Date(Month/Year) see above
--- OUTSIDE RECORDS SUMMARY | 2025-08-16 10:50 | XMS_ITS | Clinical Summary ---
Author Organization [facility] Address [address] [place] [address] Care Team Providers Care Row Boss Name Role Phone Alcides Adam MD Primary Care Provider [phone] Allergies Active AllergyReactionsCriticalityNoted DateCommentsChlorhexidineRashLow 03/03/20238574Kcvvjxqxyu29/25/2024 Made her feel overly thirsty and caused [...] mg) by mouth at bedtime 90 tablet 301/27/136844/27/2026Active Rimegepant Sulfate (Nurtec) 75 MG tablet dispersible [...] 180 capsule Discontinued Active Problems ProblemNoted DateDiagnosed SvcmRfymqluzkytqzx53/04/2025 Assessment & Plan (03/14/2025 5:41 PM EDT): Add alprazolam 0.25 ahs. Orders: ALPRAZolam (Xanax) 0.25 MG tablet; Take 1 tab 30-45 min before PAP therapy nightly Assessment & Plan (12/06/2024 1:26 PM EST): Once machine is received, pt to call for Rx alprazolam 0.25 hs for better tolerance of mask on face. Trochanteric bursitis of both hips08/24/2023olyneuropathy due to type 2 diabetes trrzgahk29/16/2023Obstructive sleep apnea05/20/2023Hypersomnia 05/20/2023 Assessment & Plan (03/14/2025 5:41 PM EDT): Discussed modafinil. May start 100 qam if/when desired., but first optimize PAP use. Cervical paraspinal muscle spasm05/20/2023MRSA (methicillin resistant Staphylococcus aureus) mgewvghgxk40/15/2023ain in left foot05/19/2023cute iqcbcpeweke83/04/2023ilateral carpal tunnel rlayaibf51/04/2023arpal tunnel syndrome of left wrist03/08/2023ervical disc oizdikoxdpbl83/04/2023harcot's joint, left ankle and foot03/08/2023hronic migraine without aura, not intractable, without status jnkzgeenroc57/04/2023losed fracture of metatarsal bone03/08/2023losed nondisplaced fracture of second metatarsal bone of left foot03/08/2023losed fracture of navicular bone of foot03/08/2023losed nondisplaced fracture of intermediate cuneiform of left foot03/08/2023 Contracture, left ankle03/08/2023iscitis of thoracic ayrdto5903/08/2023 Disturbance of skin msoiphiap96/04/2023Elevated C-reactive protein (CRP) 03/08/2023Idiopathic progressive qrctujsajybrjq13/04/0362Qcspmyvtdxp35/04/2023 Infection of thoracic spine03/08/20239496Lhwudbmo37/04/2023Limb pain03/08/2023Lumbar zvovjgexzlvcu68/04/2023Lumbosacral spondylosis without wfctgezgci44/04/2023 Crujbkgd29/04/4311Dnnfhvg25/04/2023Hereditary and idiopathic neuropathy, foozwvlgooa28/04/2023rimary osteoarthritis, unspecified ankle and foot 03/08/2023Tarsal tunnel yvdtkqqn68/04/2023Type 2 diabetes mellitus with diabetic sviarmtqwwjndt92/04/2023re-hohkouwf29/26/8079Ckfecv18/25/2022Thyroid nodule 2Restless legs05/13/2021OSA (obstructive sleep apnea)05/11/2020 Assessment [...] Orders: Ambulatory referral to Neurology Epidural abscess ([facility])08/20/2018Septic nqziuecvw85/16/2018Abdominal pain 05/04/2018Pure /31/9616Obzocqrdsuzxxe00/31/2018Neoplasm of uncertain behavior of skin02/05/2018Peripheral xysxrjjnwp91/27/2018Basal cell carcinoma of skin of face09/16/2017 Overview (03/08/2023): Added automatically from request for surgery [id number] Overview: Added automatically from request for surgery [id number] Mixed kdrqwfulqywjcj62/15/2017Carpal tunnel syndrome of right wrist03/05/2017 Vitamin D zifkxijyzg21/08/2014GERD (gastroesophageal reflux disease)09/08/2014 Chronic glomerulonephritis with pathological lesion in jmcvje8406/09/2014Chronic renal impairment, stage 3 (moderate)06/09/2014Thoracic degenerative disc disease 05/09/2014Seasonal flebnfobz95/11/2014CRI (chronic renal insufficiency) 10/25/2013Depression with dfnwcqp0706/24/20132928Etdiddvhzturd58/20/2013Fatigue 07/20/2012 Encounters DateTypeDepartmentCare IplbImmeabjvkja17/25/2025Refill [facility] [address] [facility] [address] [place] [address] Janel Allen, ONUR Idiopathic progressive polyneuropathy; Non-seasonal allergic rhinitis due to asvgvq9905/24/2025 12:30 PM EDTAncillary Procedure [facility] [address] [place] [address] Cervical paraspinal muscle spasm05/24/2025 11:30 AM EDTOffice Visit [facility] [address] [place] [address] Jennie Barajas, TAPEMAN-DIRECTOR OF FINANCIAL PLANNING BUCK (obstructive sleep apnea) (Primary Dx); Cervical paraspinal muscle spasm; Cervical /20/2025Telephone [facility] [address] [place] [address] Gauri Jay MA TENS05/24/2025amboo flowsheet [facility] [address] [place] [address] Jennie Barajas, TAPEMAN-DIRECTOR OF FINANCIAL PLANNING 05/24/20250061Qmmluq35/19/2025Telephone [facility] [address] [facility] [address] [place] [address] Nash Block MD from Last [...] ValueDate RecordedSex Assigned at BirthNot on fileLegal VekRfqtrb71/15/2023 7:36 PM EDTGender IdentityNot on fileSexual OrientationNot on file Last Filed Vital Signs Vital SignReadingTime TakenCommentsBlood Drvbhirk076/8008 11:47 AM EDT Brfej50679 12:32 PM EDTTemperature--Respiratory Uqcl097605/24/2025 11:47 AM EDTOxygen Xvklbgrxay74%05/24/2025 11:47 AM EDTInhaled Oxygen Concentration-- Iodwvy48.3 kg (210 lb)05/24/2025 11:47 AM GEGBaldtu315.5 cm (5' 2 )05/24/2025 11:47 AM EDTBody Mass Index38.4108 11:47 AM EDT Plan of Treatment DateTypeDepartmentCare Team (Latest Contact Info)Fzwdpdlcoce20/19/2025 1:00 PM ESTOffice Visit [facility] [address] [place] [address] Jennie Barajas, TAPEMAN-DIRECTOR OF FINANCIAL PLANNING [address] [place], [place] [id number] 08/29/2025 11:45 AM ESTOffice Visit [facility] [address] [place] [address] Nash Block MD [address] [facility] [address] [place] [address] Procedures Procedure NamePriorityDate/TimeAssociated DiagnosisCommentsXR CERVICAL SPINE COMPLETE 4-5 WPVORFibgbdx83/20/2025 12:45 PM EDT Cervical paraspinal muscle spasm [...] Davila DO Authorizing ProviderResult TypeResult StatusJessica Barajas TAPEMAN-CNPIMG XR PROCEDURESFinal Result from Last 3 Months Insurance Care Teams Team MemberRelationshipSpecialtyStart DateEnd Date Back, MD Alcides [address] [place] [address] PCP - GeneralFamily Medicine12/08/24
--- OUTSIDE RECORDS SUMMARY | 2025-08-16 10:50 | XMS_ITS | Clinical Summary ---
Author Organization [facility] Address [address] [place] [address] Care Team Providers Care Web Development Instructor Name Role Phone Felipe Adam MD Primary Care Provider [phone] Allergies Active AllergyReactionsCriticalityNoted DateCommentsChlorhexidineRashLow 03/03/2023TopiramateOther (See Comments)10/29/2023 [...] InformationValueDate RecordedSex Assigned at BirthNot on fileLegal TpaSqllqz47/12/2014 10:22 AM EDTGender KsdoojmqRnogpj53/07/2025 9:28 AM ESTSexual AvguokirxraRqwvrelj82/07/2025 9:28 AM EST Last Filed Vital Signs Vital SignReadingTime TakenCommentsBlood Hdcglefu318/8703/03/2023 2:44 PM EDT Ipagt593803/03/2023 2:44 PM KMQVjlrapliejr93.8 ??C (98.3 ??F)10/11/2024 9:42 AM ESTRespiratory Xuxv512401/06/2023 5:48 PM EDTOxygen Iwnmioosgq50%01/06/2023 4:22 PM EDTInhaled Oxygen Concentration--Yoivdg20.8 kg (209 lb)10/11/2024 9:42 AM EST Vzvnmc459.5 cm (5' 2 )10/11/2024 9:42 AM ESTBody Mass Index38.23010/11/2024 9:42 AM EST Plan of Treatment DateTypeDepartmentCare Team (Latest Contact Info)Ugibqlfevfl92/08/2026 10:30 AM ESTOffice Visit [facility] [address] [facility] [place] [address] Dimas Adair MD [address] [place] [address] Health MaintenanceDue DateLast DoneCommentsCT Agspyaywdknx1979Fecal DNA 1979Fecal occult blood test (FOBT,FIT)1979Flexible sigmoidoscopy 1980MMR Vaccines (1 of 1 - Standard series)1980Depression Screening/Follow-Up (PHQ-2/9)1991Hepatitis C Oqupptwdg82/25/1997Hepatitis B Vaccines (1 of 3 - 19+ 3-dose series)05/29/19981632Naurjyrlr78/25/2019Pap Smear Cervical Cancer Vhrfkegxc00/16/2022HPV/Sasuvm0003/20/2022 03/20/2017Wellness Visit/05/2022Tetanus/Diphtheria/Pertussis (2 - Td or Tdap)COVID-19 Vaccine (1 - season)2025 Influenza Vaccine (#1)06/05/20256892Jzywxtcsnzt77Colorectal Cancer Screening/Iylhaczbqk04/07/2028Zoster Vaccines (1 of 2)2029RSV Vaccines (1 - 1-dose 75+ series)2054HIV FawxayxwgSunxtqczj36/16/2018HIB VaccinesAged OutNo longer eligible based on patient's [...] Procedures Procedure NamePriorityDate/TimeAssociated DiagnosisCommentsHIV 1/2 SCREEN (4TH GENERATION)Zpfqunq5410/20/2017 5:25 PM EST Encounter for general adult medical examination without abnormal findings THINPREP PAP LPYHELxygttk89/16/2017 12:00 AM EDT HIGH RISK HPV WITH GENOTYPE 16,68Fhvjhpy98/16/2017 12:00 AM EDT Encounter for general adult medical examination without abnormal findings from Last 3 Months or Most Recently Relevant to Health Maintenance Results * HIV Antibody (HIV1/HIV2) (10/20/2017 5:25 PM EST)ComponentValueRef RangeTest MethodAnalysis TimePerformed AtPathologist SignatureHIV 1-2 ScreenNegative Axgyfpse74/17/2018 9:47 AM [facility] LABSpecimen (Source)Anatomical Location / LateralityCollection Method / VolumeCollection TimeReceived TimeBloodBLOOD SPECIMEN / Xpdeptq8910/20/2017 5:25 PM EST10/20/2017 10:58 PM EST Narrative [facility] - 10/21/2017 9:47 AM EST Test performed using [employer] Immunodiagnostic system. Authorizing ProviderResult TypeResult StatusMichuyen Parry MDLAB BLOOD ORDERABLESFinal ResultPerforming OrganizationAddressCity/State/ZIP CodePhone Number [facility] [address] [place] [address] * High Risk HPV with Genotype 16,18 (03/20/2017 12:00 AM EDT)ComponentValueRef RangeTest MethodAnalysis TimePerformed AtPathologist SignatureHPV 16Negative Rbsxfxdn57/28/2017 2:01 PM [facility] LABHPV 18Negative Rwaammbx86/28/2017 2:01 PM [facility] LABHPV, Other HR VebdmOjrndpnjGszqcpkw69/28/2017 2:01 PM [facility] Specimen (Source)Anatomical Location / LateralityCollection Method / Volume Collection TimeReceived TimePap, Liquid BasedCERVIX UTERI STRUCTURE / Unknown 9:32 PM EDT Narrative [facility] - 04/01/2017 2:01 PM EDT Assay performed using [employer] Twin 4800 system utilizing Real-Time PCR to amplify target HPV DNA. This system specifically identifies HPV16 and HPV18 while concurrently detecting the other twelve high risk types (31,33,35,39,45,51,52,56,58,59,66,68). Authorizing ProviderResult TypeResult StatusElmira Psychiatric Centermalcom Pinky Richard DOBODY FLUIDS AND STOOLS ORDERABLESFinal ResultPerforming OrganizationAddress City/State/ZIP CodePhone Number [facility] [address] [place] [address] * Thinprep Pap Smear (03/20/2017 12:00 AM [...] HPV DNA. This system specifically identifies HPV16 qaaNMN18 while concurrently detecting the other twelve high risk types(31,33,35,39,45,51,52,56,58,59,66,68). Completed by on 2017-04-02 Electronically Signed By Arielle NEFF (ASCP) , [employer] (Case signed 03/30/2017) The Papanicolaou smear is [...] Gasparcomelodie TypeRelation to PatientDate of BirthPhone Billing AddressPersonal/SbluztFamu93/ [phone] (Home) [address] [place] [address] Care Teams Team MemberRelationshipSpecialtyStart DateEnd Date Back, MD Felipe [address] [place] [address] PCP - GeneralInternal Medicine03/26/15
--- OUTSIDE RECORDS SUMMARY | 2025-08-16 10:50 | XMS_ITS | Clinical Summary ---
Author Organization [facility] Address [address] [place] [address] Phone Care Team Providers Care Machine Rebuilder Name Role Phone Unavailable Primary Care Provider Unavailabl e Social History Tobacco UseTypesPacks/DayYears UsedDateSmoking Tobacco: Never Assessed CommentsUnknownSex and Gender InformationValueDate RecordedSex Assigned at Not on fileLegal IzeKeugdr73/25/2022 12:57 PM ESTGender IdentityNot on file Sexual OrientationNot on file Plan of Treatment Not on file
--- OUTSIDE RECORDS SUMMARY | 2025-08-16 11:07 | XMS_ITS | CCD ---
Author Organization [facility] Care Team Providers Care Dope Heater Name Role Phone Back, Felipe Unavailable Unavailable [...] Unavailable Unavailable Hartman, Dereck Unavailable Unavailable ZECHARIAH, VJ Admitting Unavailable CURT SUMMERS Referring Unavailable BACK, [...] Care Provider Back, Felipe Primary Care Provider [phone] Back, Felipe Primary Care Provider Unavailabl e Back , Felipe Primary Care Provider [phone] Back , Felipe Primary Care Provider Back , Felipe Primary Care Provider BACK, FELIPE Primary Care Unavailable MUTNAL, AMAR Admitting Unavailable MUTNAL, AMAR Attending Unavailable Back , Felipe Primary Care Provider [phone] NON STAFF Primary Care Provider UnavailMD Trace Mixon. Attending Provider [phone] Back , Felipe Primary Care Provider YOON COBB Referring Unavailable BACK, FELIPE Primary Care Unavailable Back , Felipe Primary Care Provider KALPESH ARENAS Attending Unavail able BACK, FELIPE Primary Care Unavailable Back , Felipe Primary Care Provider [phone] FRANCES HARRIS Admitting Unavailable FRANCES HARRIS Attending Unavailable FRANCES HARRIS Consulting Unavailable FRANCES HARRIS Admitting Unavailable FRANCES HARRIS Attending Unavailable [facility], DR PIPER Ackerman Consulting Unavailable HIGHLFRANCES HERNANDEZ Consulting Unavailable FRANCES HARRIS Admitting Unavailable FRANCES HARRIS Attending Unavailable [place], DR EMILY Riojas Consulting Unavailable FRANCES HARRIS Consulting Unavailable Back , Felipe Primary Care Provider [phone] BACK, FELIPE Primary Care Unavailable ROBBIN SHOOK II Attending Un available Back , Felipe Primary Care Provider INDER Harris Attending Provider Frances Harris Attending Unavailable Frances Harris Admitting Unavailable Unavailable Primary Care Provider Unavailabl e BACK, FELIPE Referring Unavailable BACK, FELIPE Primary Care Unavailable BACK, FELIPE Admitting Unavailable DIMAS ADAIR Attending Unavailable Back , Bill Primary Care Provider [phone] FOZIA MENG Attending Unavailable LYNN BLOCK Attending [...] of OnsetReaction(s) Facility (20 sources)Chlorhexidine; Translations: [CHLORHEXIDINE]Drug [id number] [facility] (13 sources)topiramate; Translations: [TOPIRAMATE]Drug Fzlyafn93-12-3307Pgtmv (See Comments)[facility] (20 sources)TopiramatePropensity to adverse ddxyhzxsh96-18-8353[facility] (1 source)Chlorhexidine; Translations: [Chlorhexidine Gluconate]Drug Allergy [facility] Medications Current Medications MedicationDrug Class(es)DatesSig (Normalized)Sig (Original)acetaminophen 325 mg / HYDROcodone bitartrate 5 mg oral tablet (10 sources)Opioid AgonistStart: 90-03-1205BHQEZtbmqci-acetaminophen (NORCO) 5- 325 MG per tablettake 1 tablet by mouth every eight hours as neededhydroCODone- acetaminophen 5-325 MG Tab tablet take 1 tablet by mouth every 8 hours as needed. ActiveALPRAZolam 0.25 mg oral tablet (20 sources)BenzodiazepineStart: 06-92-1865lewf 1 tablet by mouth once daily ALPRAZolam (XANAX) 0.25 MG tablet Take 1 tablet by mouth nightly. 03/14/2025 Activeamoxicillin 875 mg / clavulanate 125 mg oral tablet (1 source)Penicillin-class AntibacterialStart: 08-08-2020 End: 04-70-6665mgvy 1 tablet by mouth twice dailyamoxicillin-clavulanate (AUGMENTIN) 875-125 MG per tablet Indications: Bacterial sinusitis Take 1 tablet by mouth 2 times daily for 7 days 14 tablet 0 08/08/2020 08/15/2020 Bjpwwd95 hr amphetamine aspartate 5 mg / amphetamine sulfate 5 mg / dextroamphetamine saccharate 5 mg / dextroamphetamine sulfate 5 mg extended release oral capsule (4 sources)Central Nervous System StimulantStart: 02-25-2023 End: 77-42-7645ptqjjjarudrzwiatn-amphetamine (ADDERALL XR) 20 MG 24 hr capsule 02/25/2023 10/11/2024 Discontinued (Patient Discharge)Start: 85-06-9844kgkt 1 capsule by mouth once daily in [...] tablet (20 sources)gamma-Aminobutyric Acid-ergic AgonistStart: 12-16-2024 End: 83-52-6038ngyf 2 tablets by mouth at bedtimebaclofen (Lioresal) 10 MG tablet Indications: Cervical paraspinal muscle spasm TAKE 2 TABLETS BY MOUTH AT BEDTIME FOR 30 DAYS 60 tablet 3 05/24/2025 ActiveStart: 87-88-4405oedd 2 tablets by mouth at bedtimebaclofen (Lioresal) 10 MG tablet Indications: Cervical paraspinal muscle spasm TAKE 2 TABLETS BY MOUTH AT BEDTIME FOR 30 DAYS 60 tablet 3 07/12/2024 ActiveStart: 85-56-6208xfor 1 tablet by mouth once dailybaclofen (LIORESAL) 10 MG tablet Take 1 tablet by mouth nightly 04/19/2022 Activebiotin 1 mg oral tablet (20 sources)Start: 08-53-1873nzqx 1 tablet by mouth once dailyBiotin 1000 [...] oral capsule (18 sources)Cephalosporin AntibacterialStart: 08-13-2023 End: 50-76-3672rezs 1 capsule by mouth once daily as needed for urinary tract infectioncephALEXin (KEFLEX) 250 MG capsule Indications: Frequent UTI Take 1 capsule by mouth daily as needed (post-coital UTI prophylaxis) 30 capsule 1 08/13/2023 ActiveStart: 12-22-6049nbky 1 capsule by mouth once daily as needed for urinary tract infectioncephALEXin (KEFLEX) 250 MG capsule Indications: Frequent UTI Take 1 capsule by mouth daily as needed (post-coital UTI prophylaxis) 30 capsule 1 08/07/2022 Activecholecalciferol 0.05 mg oral capsule (20 sources)Vitamin DStart: 92-30-7246ivei 1 capsule by mouth once daily Cholecalciferol (VITAMIN D) 2000 UNITS CAPS capsule Indications: Vitamin D deficiency Take 1 capsule by mouth daily. 30 capsule 12 09/11/2014 Active cholecalciferol (Vitamin D-3) 50 MCG (2000 UT) tablet Take by mouth Active cholecalciferol, vitamin D3, (VITAMIN D3) 2,000 unit Tab Take by mouth. Active clindamycin 300 mg oral capsule (16 sources)Lincosamide AntibacterialStart: 04-04-2025 End: 26-66-8499bbnpqhmxtga (CLEOCIN) 300 MG capsule 04/13/2025 ActiveStart: 41-14-2201uxegmvvcmof (CLEOCIN) 150 MG capsulecyclobenzaprine hydrochloride 5 mg oral tablet (16 sources)Muscle Relaxanttake 0.5 tablet by mouth once dailycyclobenzaprine (FLEXERIL) 5 MG tablet Take 5 mg by mouth nightly 1/2 tablet every night 0 Activedapagliflozin 10 mg oral tablet (7 sources)Sodium-Glucose Cotransporter 2 InhibitorStart: 64-60-2210viua 1 tablet by mouth once daily in the morningdapagliflozin (FARXIGA) 10 MG tablet Indications: Stage 3a chronic kidney disease (HCC) , Pre-diabetes Take 1 tablet by mouth every morning 90 tablet 1 06/19/2025 Bqeyvt33 hr desvenlafaxine succinate 25 mg extended release oral tablet (1 source)Serotonin and Norepinephrine Reuptake InhibitorStart: 07-29-2021 desvenlafaxine succinate (PRISTIQ) 25 MG TB24 extended release tablet 25 mg daily 0 07/29/2021 Activedextromethorphan hydrobromide 15 mg / guaiFENesin 400 mg / pseudoephedrine hydrochloride 60 mg oraltablet (1 source)alpha-Adrenergic Agonist, Uncompetitive G-zckqcv-V-aspartate Receptor Antagonist, Sigma-1 AgonistStart: 02-13-2021 End: 96-64-6747ghks 1 tablet by mouth every six hours as needed Cnknwigyioezwbi-RZ-NF (CAPMIST DM) 60-15-400 MG TABS Take 1 tablet by mouth every 6 hours as needed(Sinus pressure) 28 tablet 0 02/13/2021 02/20/2021 Active doxycycline hyclate 100 mg oral capsule (15 sources)Tetracycline-class DrugStart: 09-20-2018 End: 94-84-2928coav 1 capsule by mouth twice dailydoxycycline hyclate [...] mg/mg ophthalmic ointment (2 sources)Macrolide, Macrolide AntimicrobialStart: 30-03-9663umqhesxihcwq 5 MG/GM Ointment ophthalmic ointment Apply to eye incisions 2 x a day 1 Tube 0 08/19/2017 Activefamotidine 20 mg oral tablet (20 sources)Histamine-2 Receptor AntagonistStart: 64-33-4733vzaafhnquy (PEPCID) 20 MG tablet Indications: Gastroesophageal reflux disease without esophagitis TA KE 1 TABLET TWICE A DAY 180 tablet 3 04/03/2025 ActiveStart: 72-19-6499wdml 1 tablet by mouth twice dailyfamotidine (PEPCID) 20 MG tablet Indications: Gastroesophageal reflux disease without esophagitis Take 1 tablet by mouth 2 times daily 60 tablet 5 05/26/2023 ActiveStart: 46-87-9258rnhz 1 tablet by mouth twice dailyfamotidine (PEPCID) 20 MG tablet Indications: Gastroesophageal reflux disease without esophagitis Take 1 tablet by mouth 2 times daily 60 tablet 3 2022 Activefluconazole 150 mg oral tablet (1 source)Azole AntifungalStart: 18-85-1054lsolvklkmvn (DIFLUCAN) 150 MG tablet Indications: Antibiotic-induced yeast infection Take 1 tablet by mouth at first sign of yeast infection and repeat in 72 hours for severe infection. 2 tablet 0 06/06/2021 Activefluticasone propionate 0.05 mg/actuat metered dose nasal spray (20 sources)CorticosteroidStart: 25-36-2493dpny 2 spray(s) nasal route once dailyfluticasone (FLONASE) 50 MCG/ACT nasal spray Indications: Seasonal allergies USE 2 SPRAYS IN EACH NOSTRIL DAILY 48 g 3 09/22/2022 ActiveStart: 13-10-5296cwya 2 spray(s) nasal route once dailyfluticasone (Flonase) 50 MCG/ACT nasal spray Administer 2 sprays into each nostril Daily 09/22/2022ctiveStart: 27-37-0477ytdo 2 spray(s) nasal route in the morningfluticasone (Flonase) 50 MCG/ACT nasal spray Administer 2 sprays into each nostril in the morning. 1 11/23/2021 ActiveStart: 57-31-9299hyqw 2 spray(s) nasal route once daily fluticasone [...] 600 mg oral tablet (2 sources)Anti-epileptic AgentStart: 27-63-7515rmfw 1 tablet by mouth twice dailygabapentin 600 [...] mg oral capsule (11 sources)Guanylate Cyclase-C AgonistStart: 88-05-6051kmcd 1 capsule by mouth once dailylinaclotide (LINZESS) 145 MCG capsule Indications: Drug-induced constipation Take 1 capsule by mouth daily 90 capsule 1 05/09/2024 Active lisdexamfetamine dimesylate 40 mg oral capsule (20 sources)Central Nervous System StimulantStart: 58-86-0683DITRYLY 40 MG CAPS Take 50 mg by mouth daily. 03/04/2023 ActiveStart: 24-26-8014FZYDYEV 40 MG CAPS Start: 07-82-5743COXZWQA 40 MG CAPS daily. 0 05/06/2021 ActiveStart: 01-10-2021 VYVANSE 20 MG CAPS End: 51-46-4700vdla 1 capsule by mouth in the morninglisdexamfetamine (Vyvanse) 50 MG capsule Take 50 mg by mouth in the morning. 09/14/2024 Discontinued (Ineffective)loperamide hydrochloride 2 mg oral capsule (1 source)Opioid AgonistStart: 01-21-2021 End: 88-52-3720tbul 1 capsule by mouth four times daily as needed for diarrhea loperamide (RA ANTI-DIARRHEAL) 2 MG capsule Indications: Diarrhea in adult patient Take 1 capsule by mouth 4 times daily as needed for Diarrhea 20 capsule 0 01/21/2021 01/26/2021 Activemelatonin 3 mg oral tablet (17 sources) End: 16-94-1546yawlxzdpk 3 mg Tab Take by mouth nightly. 10/11/2024 Discontinued (Patient Discharge)methocarbamol 500 mg oral tablet (2 sources)Muscle RelaxantStart: 39-36-4630uuchpjckvvsth (ROBAXIN) 500 MG tablet montelukast 10 mg oral tablet (20 sources)Leukotriene Receptor AntagonistStart: 09-22-2022 End: 71-97-4657kgglbcxmkly (SINGULAIR) 10 MG tablet Indications: Seasonal allergies TAKE 1 TABLET NIGHTLY 90 tablet 3 09/22/2022 ActiveStart: 04-11-2022 take 1 tablet by mouth once dailymontelukast (SINGULAIR) 10 MG tablet Indications: Seasonal allergies Take 1 tablet by mouth ikfctbt54 tablet 1 04/11/2022 ActiveStart: 98-77-8253rokqzssguss (SINGULAIR) 10 MG tablet nitrofurantoin, macrocrystals 25 mg / nitrofurantoin, monohydrate 75 mg oral capsule (1 source)Nitrofuran AntibacterialStart: 06-11-2021 End: 41-14-9924xvqw 1 capsule by mouth twice dailynitrofurantoin, macrocrystal- monohydrate, (MACROBID) 100 MG capsule Indications: Acute cystitis with hematuria Take 1 capsule by mouth 2 times daily for 5 days 10 capsule 0 06/11/2021 06/16/2021 Activenortriptyline 50 mg oral capsule (20 sources)Tricyclic AntidepressantStart: 02-13-2025 End: 67-30-5797kite 3 capsules by mouth once dailynortriptyline (PAMELOR) 50 MG capsule Take 3 capsules by mouth nightly 02/13/2025 02/13/2026 ActiveStart: 09-14-2024 End: 29-20-5919zaxx 2 capsules by mouth at bedtimenortriptyline (Pamelor) 50 MG capsule Indications: Idiopathic progressive polyneuropathy , Intractable 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 (CMS/HCC) Take 2 capsules (100 mg) by mouth at bedtime 180 capsule 3 11/02/2024 02/13/2025 Discontinued (Reorder)Start: 06-10-2024 End: 37-46-0883phkj 2 capsules by mouth at bedtimenortriptyline (Pamelor) 25 MG capsule Indications: Idiopathic progressive polyneuropathy , Bilateral carpal tunnel syndrome , Restless legs , Intractable chronic migraine without aura and with statusmigrainosus (CMS/HCC) Take two capsules by mouth at bedtime. Total of 50 mg. 90 capsule 3 06/10/2024 09/14/2024 Discontinued (Reorder)Start: 11-12-2023 End: 63-52-9263qpxa 1 capsule by mouth at bedtimenortriptyline (Pamelor) 25 MG capsule Indications: Idiopathic progressive polyneuropathy , Bilateral carpal tunnel syndrome , Restless legs , Intractable chronic migraine without aura and with statusmigrainosus (CMS/HCC) Take 1 capsule (25 mg) by mouth at bedtime 90 capsule 3 11/12/2023 06/10/2024iscontinued (Reorder)PARoxetine hydrochloride 20 mg oral tablet (5 sources)Serotonin Reuptake InhibitorStart: 01-38-3659wszn 1 tablet by mouth once dailyparoxetine 20 MG Tab take 20 mg by mouth daily. 06/09/2017 Active phentermine hydrochloride 37.5 mg oral tablet (3 sources)Sympathomimetic Amine AnorecticStart: 05-26-2023 End: 96-33-4529wcje 1 tablet by mouth once daily before breakfastphentermine (ADIPEX-P) 37.5 MG tablet Indications: Class 2 severe obesity due to excess calories with serious comorbidity and body mass index (BMI) of 38.0 to 38.9 in adult ([facility]) Take 1 tablet by mouth every morning (before breakfast) for 30 days. Max Daily Amount: 37.5 mg 30 tablet 0 05/26/2023 06/25/2023 ActiveStart: 05-27-2019 End: 25-70-0188hhpx 40-44.9 capsules by mouth once daily in the morning phentermine (ADIPEX-P) 37.5 MG capsule Indications: Class 3 severe obesity due to excess calories without serious comorbidity with body mass index (BMI) of 40.0 to 44.9 in adult ([facility]) Take 1 capsule by mouth every morning for 30 days. 30 capsule 0 05/27/2019 06/26/2019 ActivepredniSONE 20 mg oral tablet (1 source)Start: 09-16-2020 End: 76-30-7094vgfl 3 tablets by mouth once dailypredniSONE (DELTASONE) 20 MG tablet Take 3 tablets by mouth daily for 5 days 15 tablet 0 Activepregabalin 300 mg oral capsule (20 sources)Start: 08-16-4244wpxk 1 capsule by mouth in the morningpregabalin (Lyrica) 300 MG capsule Indications: Idiopathic progressive polyneuropathy , Non-seasonal allergic rhinitis due to pollen TAKE 1 CAPSULE BY MOUTH IN THE MORNING AND 1 CAPSULE BY MOUTH BEFORE BEDTIME 180 capsule 07/31/2025 Active Start: 02-20-2022 End: 63-61-0848agle 1 capsule by mouth twice dailypregabalin (LYRICA) 300 MG capsule Take 1 capsule by mouth 2 times daily. 02/20/2022 ActiveStart: 69-68-5790lenb 1 capsule by mouth three times dailypregabalin (LYRICA) 150 MG capsule Indications: Epidural abscess , Discitis of thoracic region , Infection of thoracic spine (HCC) , Peripheral polyneuropathy Take 1 capsule by mouth 3 times daily for 30 days.. 90 capsule 0 08/25/2018 ActiveraNITIdine 150 mg oral tablet (1 source)Histamine-2 Receptor AntagonistStart: 53-13-7624awlg 1 tablet by mouth twice dailyraNITIdine (ZANTAC) 150 MG tablet Indications: Epigastric abdominal pain Take 1 tablet by mouth 2 times daily 60 tablet 3 12/09/2019 Active rimegepant 75 mg disintegrating oral tablet (20 sources)Start: 40-26-1880Uictyjgsgt Sulfate (Nurtec) 75 MG tablet dispersible Indications: Intractable 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 Take 75 mg by mouth See administration instructions Take 1- 75mg tablet by mouth as needed at the onset of migraine. 16 tablet 11 10/31/2024 ActiveStart: 00-96-0663Xfyixxeksk Sulfate (Nurtec) 75 MG tablet dispersible Indications: Intractable 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 (CMS/HCC) Take 75 mg by mouth See administration instructions Take 1- 75mg tablet by mouth as needed at the onset of migraine. 16 tablet 11 09/07/2024 ActiveStart: 57-75-8068Qfsogsjblz Sulfate (Nurtec) 75 MG tablet dispersible Indications: Intractable 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 (CMS/HCC) Take 75 mg by mouth See administration instructions. Take 1- 75mg tablet by mouth as needed at the onset of migraine. 16 tablet 11 08/20/2023 ActiveStart: 35-72-4821CGQJEY [address] 1 TABLET ON OR UNDER THE TONGUE EVERY OTHER DAY 01/02/2022 ActiverOPINIRole 1 mg oral tablet (20 sources)Nonergot Dopamine AgonistStart: 10-31-2024 End: 96-57-7773rabs 1 tablet by mouth in the morning, then take 1 tablet by mouth in the evening, then take 1 tablet by mouth at bedtimerOPINIRole (Requip) 0.5 MG tablet Indications: Restless legs Take 1 tablet (0.5 mg) by mouth in the morning and 1 tablet (0.5 mg) in the evening and 1 tablet (0.5 mg) before bedtime. 270 tablet 3 10/31/2024 02/13/2025 Discontinued (Reorder)Start: 46-50-2120tCVMGZFrmm (Requip) 0.5 MG tablet Indications: Restless legs TAKE 1 TABLET THREE TIMES A DAY 270 tablet 3 08/24/2023 ActiveStart: 02-10-2023 rOPINIRole (REQUIP) 0.5 MG tabletStart: 04-02-2021 End: 29-11-4719yqwe 1 tablet by mouth three times dailyrOPINIRole (REQUIP) 1 MG tablet Indications: Restless legs Take 1 tablet by mouth 3 times daily 270tablet 1 10/10/2024 ActiveStart: 20-74-4365zPHJPDWahh (REQUIP) 0.5 MG tablettake 1 tablet by mouth twice dailyrOPINIRole (REQUIP) 0.5 MG tablet Take 0.5 mg by mouth 2 times daily 0 Activesertraline 100 mg oral tablet (20 sources)Serotonin Reuptake InhibitorStart: 90-17-6964kqmtpeqfrb (Zoloft) 100 MG tablet 02/25/2023 ActiveStart: 80-94-6411nfrb 2 tablets by mouth once daily sertraline (ZOLOFT) 100 MG tablet Take 2 tablets by mouth daily Currently decreasing this medication 07/30/2020 ActiveStart: 79-18-0554otoz 1 tablet by mouth once dailysertraline (ZOLOFT) 100 MG tablet Take 100 mg by mouth daily Currently decreasing this medication ActiveStart: 41-68-7400rsma 2 tablets by mouth once dailysertraline (ZOLOFT) 50 MG tablet Take 100 mg by mouth daily 2 QD 0 07/06/2019 ActiveStart: 33-01-0146byddsvbwfu (ZOLOFT) 50 MG tablet sucralfate 1000 mg oral tablet (1 source)Aluminum ComplexStart: 87-97-9825bnea 1 tablet by mouth four times daily before mealtimesucralfate (CARAFATE) 1 GM tablet Indications: Epigastric abdominal pain Take 1 tablet by mouth 4 times daily (before meals and nightly) 120 tablet 0 12/09/2019 Activesulfamethoxazole 800 mg / trimethoprim 160 mg oral tablet (8 sources)Dihydrofolate Reductase Inhibitor Antibacterial, Sulfonamide AntimicrobialStart: 04-28-2022 End: 02-62-8464qrzg 1 tablet by mouth once in the morning, then take 1 tablet by mouth once at bedtimesulfamethoxazole-trimethoprim (BACTRIM DS) 800-160 MG per tablet Indications: Acute cystitis with hematuria Take 1 tablet by mouth in the morning and 1 tablet before bedtime. Do all this for 7 days. 14 tablet 0 04/28/2022 05/05/2022 ActiveStart: 01-22-2022 End: 00-42-4731nedu 1 tablet by mouth twice dailysulfamethoxazole-trimethoprim (BACTRIM DS;SEPTRA DS) 800-160 MG per tablet Take 1 tablet by mouth 2times daily for 7 days 14 tablet 0 01/22/2022 01/29/2022 ActiveStart: 08-01-2021 End: 66-21-8253efho 1 tablet by mouth once dailysulfamethoxazole-trimethoprim (BACTRIM) 400-80 MG per tablet Indications: Frequent UTI , Urinary urgency , Urinary frequency Take 1 tablet by mouth daily Take one tablet after intercourse 30 tablet 10/30/2021 Activesulfamethoxazole-trimethoprim (Bactrim) 400-80 MG tablet Take by mouth Activethiamine 100 mg oral tablet (6 sources)Start: 08-20-2023 End: 02-09-5632zopk 1 tablet by mouth in the morningthiamine (Vitamin B-1) 100 MG tablet Indications: Bilateral carpal tunnel syndrome , Idiopathic progressive polyneuropathy , Restless legs Take 1 tablet (100 mg) by mouth in the morning. 30 tablet 08/19/2024 ActivetiZANidine 4 mg oral tablet (14 sources)Central alpha-2 Adrenergic AgonistStart: 17-96-0980roVDEpapkk (ZANAFLEX) 4 MG tablet Take by mouth nightly 0 05/05/2020 Activetopiramate 50 mg oral tablet (15 sources)Start: 09-22-2023 End: 43-39-1072qvrgejppkl 50 MG tablet 09/22/2023 09/14/2024 Discontinued (Side effects)Start: 30-30-4038ouapydtcah (TOPAMAX) 25 MG tabletvilazodone hydrochloride 40 mg oral tablet (8 sources)Start: 97-29-3055ftip 1 tablet by mouth once dailyvilazodone HCl (VIIBRYD) 40 MG TABS Indications: Depression with anxiety Take 1 tablet by mouth daily 30 tablet 3 05/27/2019 Active Completed/Discontinued Medications MedicationDrug Class(es)DatesSig (Normalized)Sig (Original)alendronic acid 70 mg oral tablet (2 sources)BisphosphonateStart: 07-01-2024 End: 06-47-3775gipe 1 tablet by mouth once dailyalendronate (Fosamax) 70 MG tablet 1 tablet 30 minutes before the first food, beverage or medicine of the day with plain water Orally weekly for 94 days 07/01/2024 05/24/2025 Discontinued (Therapy completed)cetirizine hydrochloride 10 mg oral capsule (20 sources)Histamine-1 Receptor AntagonistStart: 06-09-2017 End: 08-21-4324zsmeprrmuz 10 mg capStart: 09-97-7103Wffultlkiz HCl (ALL DAY ALLERGY) 10 MG CapStart: 50-68-2209xhtg 1 tablet by mouth once dailycetirizine (ZYRTEC) 10 MG tablet TAKE 1 TABLET BY MOUTH DAILY. 30 tablet 4 02/11/2016 Bjrrlr738 ml ciprofloxacin 2 mg/ml injection (4 sources)Quinolone AntimicrobialStart: 04-04-2025 End: 75-81-7359610 mg, IntraVENous, ONCE, 1 dose, On Thu04/04/25 at 2200, Antimicrobial Indications: Skin and Soft Tissue InfectionStart: 04-04-2025 End: 06-41-6189vqhm 1 tablet by mouth twice dailyciprofloxacin (CIPRO) 500 MG tablet Take 1 tablet by mouth 2 times daily for 10 days 20 tablet 04/04/2025 04/14/2025 ActiveStart: 04-13-2021 End: 86-49-0673xhfg 1 tablet by mouth twice dailyciprofloxacin (CIPRO) 250 MG tablet Indications: Acute cystitis with hematuria Take 1 tablet by mouth 2 times daily for 3 days 6 tablet 0 04/13/2021 04/16/2021 Activeclindamycin (CLEOCIN) 600 mg in sodium chloride 0.9 % 50 mL IVPB (1 source)Start: 04-04-2025 End: 19-66-8168810 mg, IntraVENous, ONCE, 1 dose, On Thu04/04/25 at 2200, Antimicrobial Indications: Skin and Soft Tissue Infectiondiclofenac sodium 0.01 mg/mg topical gel (20 sources)Nonsteroidal Anti-inflammatory DrugStart: 01-06-2023 End: 58-53-1004aknipoqwro sodium 1 % gel 01/06/2023 05/24/2025 Discontinued (Therapy completed)Start: 30-01-1270jtmzehymgr sodium 1 % GELgadobenate dimeglumine (MULTIHANCE) injection 10 mL (2 sources)Start: 04-11-2025 End: 55-84-0543dlao 1 dose intravenously once10 mL, IntraVENous, IMG ONCE PRN, 1 dose, Starting on Thu04/11/25 at 1244, Until Thu04/11/25 at 1245,OtherStart: 06-25-2022 End: 35-47-5366smqwcjqlqn dimeglumine (MULTIHANCE) injection 10 mLhydrOXYzine pamoate 50 mg oral capsule (20 sources)AntihistamineStart: 03-06-2023 End: 57-65-7709ojbzFDHdnsr pamoate (Vistaril) 50 MG capsule Indications: Allergy, subsequent encounter Take 1 capsule (50 mg) by mouth as needed at bedtime for itching. 90 capsule 1 03/06/2023 03/14/2025 Discontinuedicosapent ethyl 1000 mg oral capsule (15 sources)Start: 05-17-2019 End: 59-31-5664giom 2 capsules by mouth twice daily, then take 1 capsule by mouthIcosapent Ethyl (VASCEPA) 1 g CAPS capsule Indications: Mixed hyperlipidemia Take 2 capsules by mouth 2 times daily 120 capsule 5 05/17/2019 09/16/2020 Discontinued (LIST CLEANUP)methylPREDNISolone 125 mg injection (1 source)CorticosteroidStart: 09-16-2020 End: 24-29-4371aqyedsITUBDQGjyttx sodium (SOLU-MEDROL) injection 125 mgStart: 09-16-2020 End: 56-37-7992uyehzkHHHAHIUwrsrk sodium (SOLU-MEDROL) injection 125 mg2 ml orphenadrine citrate 30 mg/ml injection (1 source)Muscle RelaxantStart: 09-16-2020 End: 17-39-5850zhbmykjvxgjn (NORFLEX) injection 30 mg50 ml sodium chloride 9 mg/ml injection (1 source)Start: 04-04-2025 End: 51,000 mL (10.3 mL/kg), IntraVENous, at 1,935.5 mL/hr, Administer over 31 Minutes, ONCE, On Thu04/04/25 at 2200, For 1 dose Problems Active Problems Problem ClassificationProblemDateDocumented DateEpisodic/ChronicAnxiety disorders (20 sources)Anxiety; Translations: [Mixed anxiety and depressive disorder]Onset: 421711-05-5898QwmyiqpCbmceak kidney disease (20 sources)Chronic kidney disease stage 3; Translations: [Chronic renal insufficiency]Onset: 414715-38-2150EresjqwFsgpqft kidney disease (16 sources)Chronic renal insufficiency; Translations: [Chronic kidney disease] Onset: 283968-79-4191Qkkvtoe ulcer of skin (9 sources)Deep tissue pressure injury; Translations: [Pressure-induced deep tissue damage of other site]Onset: 640348-45-2343IvjxlhiOvrlxszp mellitus with complications (20 sources)Polyneuropathy due to type 2 diabetes mellitus; Translations: [Type 2 diabetes mellitus with diabetic polyneuropathy]Onset: ChronicDisorders of lipid metabolism (20 sources)Mixed hypercholesterolemia and hypertriglyceridemia; Translations: [Mixed hyperlipidemia]Onset: 06-24-2013 Resolved: 177422-08-3388PjytdglEnijvaafbc disorders (20 sources)Gastroesophageal reflux disease; Translations: [Gastro-esophageal reflux disease without esophagitis]Onset: 255016-23-9713KtskshoTyrlokhr of lower limb (2 sources)Closed fracture of second metatarsal bone; Translations: [Nondisplaced fracture of second metatarsal bone, right foot, initial encounter for closed fracture]22-17-2123WfebxwddXuhynqzqvyozl symptoms and ill-defined conditions (5 sources)Dysuria; Translations: [Dysuria]EpisodicHeadache; including migraine (20 sources)Migraine without aura, not refractory ; Translations: [Chronic migraine without aura, not intractable, without status migrainosus]Onset: 349032-70-3816WtgaatkXzfiguieuosfy and screening for infectious disease (4 sources)Suspected disease caused by 2019-nCoV; Translations: [Suspected COVID-19 virus infection]EpisodicInfective arthritis and osteomyelitis (except that caused by tuberculosis or sexually transmitted disease) (20 sources)Osteomyelitis, unspecified; Translations: [Infection of thoracic spine]Onset: 031777-81-9307JqlbmfrLsavpcn and fatigue (20 sources)Fatigue; Translations: [Chronic fatigue, unspecified]Onset: 613971-82-5443HmcydszNzennyrws; nephrosis; renal sclerosis (20 sources)Chronic glomerulonephritis; Translations: [Chronic nephritic syndrome with unspecified morphologic changes]Onset: 439348-13-1439Wmnrlpk Nutritional deficiencies (20 sources)Vitamin D deficiency; Translations: [Vitamin D deficiency, unspecified]Onset: 851094-90-2941BzagbnhComnieshivgene (20 sources)Degenerative joint disease of ankle AND/OR foot; Translations: [Primary osteoarthritis, unspecifiedankle and foot]Onset: 063647-50-6477 ChronicOther acquired deformities (20 sources)Contracture of joint of left ankle; Translations: [Contracture, left ankle]Onset: 052007-69-7066DjwibkwFssgk acquired deformities (1 source)Deformity of lower limb; Translations: [Other specified acquired deformities of unspecified lower leg]82-22-0346SivxbhgpCgjvc and unspecified benign neoplasm (1 source)Lipoma of skin and subcutaneous tissue of neck; Translations: [Benign lipomatous neoplasm of skin and subcutaneous tissue of head, face and neck] 93-70-1702JpadmfkqSdojs and unspecified benign neoplasm (2 sources)Benign lipomatous neoplasm of skin and subcutaneous tissue of head, face and neck; Translations: [Benign lipomatous neoplasm of skin and subcutaneous tissue of head, face and neck]Onset: 98-29-7630KvrcbbyaXvtnx circulatory disease (4 sources)Other specified symptoms and signs involving the circulatory and respiratory systems; Translations:[OTH SPEC SX SIGNS INVLV CIRC RS]Onset: 68-75-9188SssnqpnpDqssb connective tissue disease (2 sources)Other muscle spasm; Translations: [Other muscle spasm]Onset: 62-14-9386XwdidvohBvozl connective tissue disease (1 source)Foot pain; Translations: [...] Translations: [Disorder of kidney and ureter, unspecified]Onset: 83-22-4198MgpaoqunMsbks hereditary and degenerative nervous system conditions (20 sources)Restless legs; Translations: [Restless legs syndrome]Onset: 462565-20-9232EuecxleEhtiv lower respiratory disease (1 source)Dyspnea; Translations: [SOB (shortness of breath)]EpisodicOther lower respiratory disease (2 sources)Snoring; Translations: [Snoring]93-04-8314AggkpbgqVjsvg nervous system disorders (3 sources)Polyneuropathy, unspecified; Translations: [Polyneuropathy, unspecified]Onset: 15-04-2361LijrbhhSwokf nervous system disorders (20 sources)Peripheral nerve disease ; Translations: [Polyneuropathy, unspecified]Onset: 408417-18-9380FkmoollHnhxb nervous system disorders (20 sources)Carpal tunnel syndrome of right wrist; Translations: [Carpal tunnel syndrome, right upper limb]Onset: 263080-85-3843EbfdlrsWsmgq nervous system disorders (20 sources)Idiopathic progressive polyneuropathy; Translations: [Idiopathic progressive neuropathy]Onset: 344111-83-6161ZznmlqkEmote nervous system disorders (20 sources)Bilateral carpal tunnel syndrome; Translations: [Carpal tunnel syndrome, bilateral upper limbs]Onset: 869659-93-5831TmglsepPgycz nervous system disorders (20 sources)Carpal tunnel syndrome of left wrist; Translations: [Carpal tunnel syndrome, left upper limb]Onset: 357084-04-9921UxktvmkGlawq nervous system disorders (20 sources)Inattention; Translations: [Attention and concentration deficit] Onset: 645077-52-4696YkkqixrQfkea nervous system disorders (20 sources)Disorder of the peripheral nervous system; Translations: [Hereditary and idiopathic neuropathy, unspecified]Onset: 071707-88-6762TwzforeFiehk nervous system disorders (20 sources)Tarsal tunnel syndrome; Translations: [Tarsal tunnel syndrome, unspecified lower limb]Onset: 131514-09-9022WewjncnJsaua nervous system disorders (4 sources)Abnormal gait; Translations: [Unsteadiness on feet]71-12-0581Nxevndqc Other nervous system disorders (13 sources)Carpal tunnel syndrome of right wrist; Translations: [Carpal tunnel syndrome on right]Onset: Other non-epithelial cancer of skin (15 sources)Basal cell carcinoma of face; Translations: [Basal cell carcinoma of skin of face]Onset: 734306-45-4090HncykdeQypbu non-traumatic joint disorders (4 sources)Charcot's joint, left ankle and foot; Translations: [CHARCOTS JOINT LEFT ANKLE AND FO]Onset: 04-43-1394XrwjgfzJfqga non-traumatic joint disorders (3 sources)Charcot arthropathy of midfoot; Translations: [Charcot's joint, unspecified ankle and foot]99-00-3682HxzxnhySzndu non-traumatic joint disorders (20 sources)Acute arthropathy; Translations: [Arthropathy, unspecified]Onset: 924185-31-1862XybgsdhFhgwh non-traumatic joint disorders (20 sources)Charcot's arthropathy; Translations: [Charcot's joint, left ankle and foot]Onset: 314141-58-6810YvmztyqRcudl non-traumatic joint disorders (1 source)Pain in left ankle and joints of left foot; Translations: [PAIN IN LEFT ANKLE]Onset: 32-66-6404HoprhohqYtomo nutritional; endocrine; and metabolic disorders (2 sources)Obesity caused by energy imbalance; Translations: [Other obesity due to excess calories]66-53-1309PqtrohkGgoqy screening for suspected conditions (not mental disorders or infectious disease) (13 sources)Elevated C-reactive protein; Translations: [Elevated C-reactive protein (CRP)]84-66-7490Uumvh skin disorders (1 source)Mass of neck; Translations: [Localized swelling, mass and lump, neck] EpisodicOther upper respiratory disease (20 sources)Seasonal allergy; Translations: [Other seasonal allergic rhinitis] Onset: 429368-18-4076ZjgucixJprnz upper respiratory disease (3 sources)Allergic rhinitis due to pollen; Translations: [Allergic rhinitis due to pollen]37-73-5364OzlminsMvdruvxj codes; unclassified (20 sources)Obstructive sleep apnea syndrome; Translations: [Obstructive sleep apnea (adult) (pediatric)]Onset: 962705-67-8665BdvtxbkUzxcgdrb codes; unclassified (20 sources)Hypersomnia; Translations: [Hypersomnia, unspecified]Onset: 099584-52-8445TpjmhwqUielsvww codes; unclassified (2 sources)Localized edema; Translations: [Localized edema]Onset: 01-06-2023 EpisodicResidual codes; unclassified (2 sources)Edema, generalized; Translations: [Generalized edema]04-10-2025 EpisodicSepticemia (except in labor) (20 sources)Sepsis; Translations: [Methicillin resistant Staphylococcus aureus infection]Onset: 08-15-2018 Resolved: 895523-36-2952FkmuxtzoKrvr and subcutaneous tissue infections (4 sources)Infection of toe ; Translations: [Local infection of the skin and subcutaneous tissue, unspecified]84-10-9499AfkwlxhiAzmpfqcsojj; intervertebral disc disorders; other back problems (20 sources)Discitis, unspecified, thoracic region; Translations: [Degeneration of thoracic intervertebral disc]Onset: 958411-09-4521MxxwbvmDmxpqgp disorders (20 sources)Thyroid nodule; Translations: [Nontoxic single thyroid nodule]Onset: 682661-15-4158PjybpxlKfjxecbkyyiv (1 source)Pressure-induced deep tissue damage of other site; Translations: [Pressure-induced deep tissue damage of other site]Onset: 61-81-7290Pltenrk tract infections (20 sources)Acute cystitis; Translations: [Acute cystitis with hematuria]Onset: 23-63-9932LmulvyurMgaqs infection (1 source)Viral disease; Translations: [Viral infection, unspecified]Episodic Past or Other Problems Problem ClassificationProblemDateDocumented DateEpisodic/ChronicAbdominal pain (20 sources)Female genital organ symptoms; Translations: [Pelvic and perineal pain]Onset: 28-24-0687NsccewitZpfjxtlcm infection; unspecified site (20 sources)Methicillin resistant Staphylococcus aureus infection; Translations: [Bacteremia due to Methicillinresistant Staphylococcus aureus] Resolved: 837575-79-2114UwogapsjRbtushswqi and other anemia (20 sources)Anemia; Translations: [Anemia, unspecified]Onset: 2022 14-90-4526EjldpfcxMlrrdzpt mellitus without complication (20 sources)Hyperglycemia; Translations: [Hyperglycemia, unspecified]Onset: 007128-96-6123NzjqhjalSkank and electrolyte disorders (20 sources)Lactic acidosis; Translations: [Acidosis]Onset: 08-15-2018 Resolved: 706282-37-4322ArfhybwzBknuqusl of lower limb (20 sources)Closed fracture of second metatarsal bone; Translations: [Nondisplaced fracture of second metatarsal bone, left foot, initial encounter for closed fracture]Onset: 91-43-0104DbmioddsXghdvvuti arthritis and osteomyelitis (except that caused by tuberculosis or sexually transmitted di sease) (20 sources)Suppurative arthritis; Translations: [Infective arthritis]Onset: 441414-74-7422IzoenaaoLpddfkx and fatigue (20 sources)Fatigue; Translations: [Other fatigue]Onset: EpisodicMedical examination/evaluation (2 sources)Encounter for general adult medical examination without abnormal findings; Translations: [Encounterfor general adult medical examination without abnormal findings]Onset: 40-61-9780UabscsuvLdia disorders (20 sources)Depressive disorder; Translations: [Major depressive disorder, single episode, unspecified]Onset: 07-20-2012 Resolved: 809825-87-5798OxntyszSullrtqwq of unspecified nature or uncertain behavior (20 sources)Neoplasm of uncertain behavior of skin; Translations: [Neoplasm of uncertain behavior of skin]Onset: 056392-00-1013AybbrjqjWkpup 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 infection and poliomyelitis (20 sources)Extradural and subdural abscess, unspecified; Translations: [Epidural abscess]Onset: 202392-41-2278ZneoewbsHlsqn connective tissue disease (1 source)Spasm; Translations: [Spasm of muscle]EpisodicOther connective tissue disease (20 sources)Pain in left foot; Translations: [Pain in left foot]Onset: 629102-41-5710FimxfnklLkgxj connective tissue disease (20 sources)Pain in limb; Translations: [Pain in unspecified limb]Onset: 718022-32-2259KzfvvqjxHqbuh connective tissue disease (20 sources)Muscle pain; Translations: [Myalgia, unspecified site]Onset: 221882-53-7280PfktqdtwQppww connective tissue disease (20 sources)Spasm of cervical paraspinous muscle; Translations: [Other muscle spasm]Onset: 979829-10-5468BozceqhmFgonv connective tissue disease (20 sources)Bilateral trochanteric bursitis; Translations: [Trochanteric bursitis, right hip]Onset: 945462-45-7453LikvfdawCeokg connective tissue disease (1 source)Pain in right foot; Translations: [Pain in right foot]Onset: 63-86-4015DuxfqtlzVrebm diseases of kidney and ureters (3 sources)Chronic renal insufficiency; Translations: [Disorder of kidney and ureter, unspecified]Onset: 013952-83-2245EshtgqdnBswqz nervous system disorders (20 sources)Metabolic encephalopathy; Translations: [Metabolic encephalopathy] Resolved: 269841-65-2977BtynoxiRghkz nervous system disorders (20 sources)Skin sensation disturbance; Translations: [Unspecified disturbances of skin sensation]Onset: 859460-59-7983KqpcfkgjSgwgr non-epithelial cancer of skin (20 sources)Basal cell carcinoma of skin; Translations: [Basal cell carcinoma of skin, unspecified]Onset: 036172-46-2416KuiqwbqiEtpdl screening for suspected conditions (not mental disorders or infectious disease) (20 sources)Elevated C-reactive protein; Translations: [Elevated C-reactive protein (CRP)]Onset: 129113-55-1826AkfixjvtZpiyeuzq codes; unclassified (20 sources)Insomnia; Translations: [Insomnia, unspecified]Onset: 03-08-2023 86-22-4758DaskvvufLdzmcpnvbsn; intervertebral disc disorders; other back problems (20 sources)Radiculopathy, cervical region; Translations: [Acute thoracic back pain]Onset: 82-09-387620925949-29-1028EmogpqimLksrlhdbwamy (1 source)Patient encounter jvdiuk62-32-4112 Results Test NameValueInterpretationReference RangeFacilityHemoglobin A1Con 08-03-2025 Glucose [Mass/Vol]103 mg/dLNormalUniversity Hospitals Samaritan Medical CenterComment on above:Result Comment: The ADA and AACC recommend providing the estimated average glucose result to permit better patient understanding of their HBA1c result.Performed By: #### MORPHX, CRP, BMP, CBC, SED #### [facility] [address] [place], [place] [id number] Sales Communications Manager: Emily George MDHbA1c (Bld) [Mass fraction]5.2 %Normal4.0-6.0[facility] Medical CenterComment on above:Performed By: #### MORPHX, CRP, BMP, CBC, SED #### [facility] [address], [place] [phone] Sales Communications Manager: Dayan Mirza Metabolic Panelon 55-98-3046Unsav gap [Moles/Vol]9 mmol/L9 - 17 mmol/LBon [facility]ours [facility] HealthCalcium [Mass/Vol]9.7 mg/dL8.6 - 10.4 mg/dLBon Secours [facility] Sam[facility] Medical Centery HealthChloride [Moles/Vol]102 mmol/L98 - 107 mmol/LBon [facility] HealthCO2 [Moles/Vol]27 mmol/L20 - 31 mmol/LBon [facility] HealthCreatinine [Mass/Vol]1.5 mg/dLHigh0.5 - 0.9 mg/dLBon [facility] Centerours [facility] Centery HealthEst, Glom Filt Aznq23Way- PINFBon Wilson Street HospitalComment on above: These results are not [...] secretion. Glucose [Mass/Vol]92 mg/dL70 - 99 mg/dLBon [address] HospitalInterpretation and review of laboratory resultsAbnormalVcu Medical CenterPotassium [Moles/Vol]4.3 mmol/L3.7 - 5.3 mmol/LBon [address] HospitalSodium [Moles/Vol] 138 mmol/L135 - 144 mmol/LBon [address] HospitalUrea nitrogen [Mass/Vol]17 mg/dL6 - 20 mg/dLBon [facility] HealthBasic Metabolic Profon 10-42-2838Rrtbm gap [Moles/Vol]9 mmol/LNormal9-17[facility] Comment on above:Performed By: #### MORPHX, CRP, BMP, CBC, SED #### [facility] [address] [place] [address] Sales Communications Manager: SHER Mirzaalcium [Mass/Vol]9.7 mg/dLNormal8.6-10.4[facility] Medical CenterComment on above:Performed By: #### MORPHX, CRP, BMP, CBC, SED #### [facility] [address] [place] [address] Sales Communications Manager: SHER Mirzahloride [Moles/Vol]102 mmol/GBqkhfu00-464KsskdUniversity Hospitals Samaritan Medical CenterComment on above:Performed By: #### MORPHX, CRP, BMP, CBC, SED #### [facility] [address] [place] [address] Sales Communications Manager: SHER MirzaO2 [Moles/Vol]27 mmol/ZRajpry94-02PlohkUniversity Hospitals Samaritan Medical CenterComment on above:Performed By: #### MORPHX, CRP, BMP, CBC, SED #### [facility] [address] [place] [address] Sales Communications Manager: SHER Mirzareatinine [Mass/Vol]1.5 mg/dLHigh0.5-0.9[facility] Medical CenterComment on above:Performed By: #### MORPHX, CRP, BMP, CBC, SED #### [facility] [address] [place] [address] Sales Communications Manager: Emily George MDGFR/1.73 sq M.predicted among non-blacks MDRD (S/P/Bld) [Vol rate/Area]43 mL/min/{1.73_m2}Low>60[facility] Medical CenterComment on above:Result Comment: These results [...] #### MORPHX, CRP, BMP, CBC, SED #### [facility] [address] [place] [address] Sales Communications Manager: Emily George MDGlucose [Mass/Vol]92 mg/cFMojwnx58-51LziyyHolzer HospitalComment on above:Performed By: #### MORPHX, CRP, BMP, CBC, SED #### [facility] [address] [place] [address] Sales Communications Manager: ANNMARIE Mirzaotassium [Moles/Vol]4.3 mmol/LNormal3.7-5.3MHolzer HospitalComment on above:Performed By: #### MORPHX, CRP, BMP, CBC, SED #### [facility] [address] [place] [phone] Sales Communications Manager: MARIKA Mirzaodium [Moles/Vol]138 mmol/HIkbxhy448-346IfgpzUniversity Hospitals Samaritan Medical CenterComment on above:Performed By: #### MORPHX, CRP, BMP, CBC, SED #### [facility] [address] [place] [address] Sales Communications Manager: Emily George MDUrea nitrogen [Mass/Vol]17 mg/dLNormal6-20[facility] Medical CenterComment on above:Performed By: #### MORPHX, CRP, BMP, CBC, SED #### [facility] [address] [place] [address] Sales Communications Manager: Emily George MDBabourbon community hospital Metabolic Panelon 46-62-6782Yusue gap [Moles/Vol]8 mmol/LLow9 - 17 mmol/LBon [facility] HealthCalcium [Mass/Vol] 10.1 mg/dL8.6 - 10.4 mg/dLBon [facility] HealthChloride [Moles/Vol]100 mmol/L 98 - 107 mmol/LBon [address] HospitalCO2 [Moles/Vol]29 mmol/L20 - 31 mmol/LBon [address] HospitalCreatinine [Mass/Vol]1.4 mg/dLHigh0.5 - 0.9 mg/dLBon [address] HospitalEst, Glom Filt Iebj82Dxt- PINFBon [facility] [address] [facility] Comment on above: These results are [...] secretion. Glucose [Mass/Vol]87 mg/dL70 - 99 mg/dLBon [facility] HealthPotassium [Moles/Vol]4.4 mmol/L3.7 - 5.3 mmol/LBon [address] HospitalSodium [Moles/Vol] 137 mmol/L135 - 144 mmol/LBon [address] HospitalUrea nitrogen [Mass/Vol]19 mg/dL6 - 20 mg/dLBon [address] HospitalBasic Metabolic Profon 86-62-8488Wvibn gap [Moles/Vol]8 mmol/LLow9-17[facility] Medical CenterComment on above:Performed By: #### MORPHX, CRP, BMP, CBC, SED #### [facility] [address] [place] [phone] Sales Communications Manager: SHER Mirzaalcium [Mass/Vol]10.1 mg/dLNormal8.6-10.4[facility] Medical CenterComment on above:Performed By: #### MORPHX, CRP, BMP, CBC, SED #### [facility] [address] [place] [phone] Sales Communications Manager: SHER Mirzahloride [Moles/Vol]100 mmol/VPvjpbx82-233QdvvaUniversity Hospitals Samaritan Medical CenterComhuron valley-[facility] on above:Performed By: #### MORPHX, CRP, BMP, CBC, SED #### [facility] [address] [place] [address] Sales Communications Manager: Emily George MDCO2 [Moles/Vol]29 mmol/CLogsny29-46FtrnvUniversity Hospitals Samaritan Medical CenterComment on above:Performed By: #### MORPHX, CRP, BMP, CBC, SED #### [facility] [address] [place] [phone] Sales Communications Manager: SHER Mirzareatinine [Mass/Vol]1.4 mg/dLHigh0.5-0.9[facility] on above:Performed By: #### MORPHX, CRP, BMP, CBC, SED #### [facility] [address] [place] [phone] Sales Communications Manager: Emily George MDGFR/1.73 sq M.predicted among non-blacks MDRD (S/P/Bld) [Vol rate/Area]47 mL/min/{1.73_m2}Low>60[facility] Medical CenterComhuron valley-sinai hospital on above:Result Comment: These results are [...] #### MORPHX, CRP, BMP, CBC, SED #### [facility] [address] [place] [address] Sales Communications Manager: Emily George MDGlucose [Mass/Vol]87 mg/kYBrdnje60-37TacbcHolzer HospitalComment on above:Performed By: #### MORPHX, CRP, BMP, CBC, SED #### [facility] [address] [place] [address] Sales Communications Manager: ANNMARIE Mirzaotassium [Moles/Vol]4.4 mmol/LNormal3.7-5.3MHolzer HospitalComment on above:Performed By: #### MORPHX, CRP, BMP, CBC, SED #### [facility] [address] [place] [address] Sales Communications Manager: MARIKA Mirzaodium [Moles/Vol]137 mmol/VFgshot789-678CigyjUniversity Hospitals Samaritan Medical CenterComment on above:Performed By: #### MORPHX, CRP, BMP, CBC, SED #### [facility] [address] [place] [address] Sales Communications Manager: Emily George MDUrea nitrogen [Mass/Vol]19 mg/dLNormal6-20[facility] Medical CenterComment on above:Performed By: #### MORPHX, CRP, BMP, CBC, SED #### [facility] [address] [place] [address] Sales Communications Manager: Emily George MDC-Reactive Proteinon [id number] High sensitivity method [Mass/Vol]16.1 mg/LHigh0.0 - 5.0 mg/LBon [facility] CRP [Mass/Vol]16.1 mg/LHigh0.0-5.0[facility] Medical CenterComhuron valley-sinai hospital on above: Performed By: #### MORPHX, CRP, BMP, CBC, SED #### [facility] [address] [place] [address] Sales Communications Manager: Angy Mirza 15-34-2617Wsvuuyfnsrv distribution width (RBC) [Ratio]17.1 %High12.1 - 15.2 %Vcu Medical CenterHematocrit (Bld) [Volume fraction]34.3 %Low36.0 - 46.0 %Vcu Medical CenterHemoglobin (Bld) [Mass/Vol]11.0 g/dLLow12.0 - 16.0 g/dLBon [address] HospitalInterpretation and review of laboratory resultsAbnormalBon [facility] (RBC) [Entitic mass]28.2 pg26.0 - 34.0 pgCentra HealthHC (RBC) [Mass/Vol]32.1 g/dL 31.0 - 37.0 g/dLBon [facility] Medical CenterV (RBC) [Entitic vol]87.9 fL80.0 - 100.0 fLVcu Medical CenterPlatelet mean volume (Bld) [Entitic vol]11.4 fL 6.0 - 12.0 fLVcu Medical CenterPlatelets (Bld) [#/Vol]218 10*3/uLBon [address] HospitalRBC (Bld) [#/Vol]3.90 10*6/uLLow4.00 - 5.20 m/uLVcu Medical CenterWBC other (Bld) [#/Vol]9.9Bon [facility] / [facility]vera HealthErythrocyte distribution width (RBC) [Ratio]17.1 %High12.1-15.2[facility] HospitalComment on above:Performed By: #### MORPHX, CRP, BMP, CBC, SED #### [facility] [address] [place] [address] Sales Communications Manager: Emily George MDHematocrit (Bld) [Volume fraction]34.3 %Low 36.0-46.0[facility] Medical CenterComment on above:Performed By: #### MORPHX, CRP, BMP, CBC, SED #### [facility] [address] [place] [phone] Sales Communications Manager: Emily George MDHemoglobin (Bld) [Mass/Vol]11.0 g/dLLow12.0-16.0 [facility] CenterComment on above:Performed By: #### MORPHX, CRP, BMP, CBC, SED #### [facility] [address] [place] [address] Sales Communications Manager: ELISABET MirzaCH (RBC) [Entitic mass]28.2 fvKzqrtr26.0-34.0 [facility] CenterComment on above:Performed By: #### MORPHX, CRP, BMP, CBC, SED #### [facility] [address] [place] [phone] Sales Communications Manager: VINCENT MirzaC (RBC) [Mass/Vol]32.1 g/qLRnrfym49.0-37.0[facility] CenterComment on above:Performed By: #### MORPHX, CRP, BMP, CBC, SED #### [facility] [address] [place] [phone] Sales Communications Manager: ELISABET MirzaCV (RBC) [Entitic vol]87.9 qCJqfnhk16.0-100.0 [facility] CenterComment on above:Performed By: #### MORPHX, CRP, BMP, CBC, SED #### [facility] [address] [place] [phone] Sales Communications Manager: ANNMARIE Mirzalatelet mean volume (Bld) [Entitic vol]11.4 fL Normal6.0-12.0[facility] Medical CenterComment on above:Performed By: #### MORPHX, CRP, BMP, CBC, SED #### [facility] [address] [place] [phone] Sales Communications Manager: Terrence Mirza (Bld) [#/Vol]218 10*3/iQCthjww671-690 [facility] Medical CenterComhuron valley-sinai hospital on above:Performed By: #### MORPHX, CRP, BMP, CBC, SED #### [facility] [address] [place], [place] [phone] Sales Communications Manager: ELMO Mirza (Bld) [#/Vol]3.90 10*6/uLLow4.00-5.20[facility] on above:Performed By: #### MORPHX, CRP, BMP, CBC, SED #### [facility] [address] [place] [address] Sales Communications Manager: LLOYD Mirza (Bld) [#/Vol]9.9 10*3/uLNormal3.5-11.0[facility] on above:Performed By: #### MORPHX, CRP, BMP, CBC, SED #### [facility] [address], [place] [phone] Sales Communications Manager: Kiara Mirza Panel Informationon [id number] and review of laboratory resultsAbChesapeake Regional Medical Centerdimentation Rateon [id number] Photometric method (Bld) [Velocity]42HighVcu Medical CenterInterpretation and review of laboratory resultsAbSame Day Surgery CenterSedimentation Rate42 mm/HrHigh0-20[facility] CenterComhuron valley-sinai hospital on above:Performed By: #### MORPHX, CRP, BMP, CBC, SED #### [facility] [address] [place] [address] Sales Communications Manager: SHER Mirzareatinine, Random Urineon [id number] (U) [Mass/Vol]52.4 mg/dL28.0 - 217.0 mg/dLBon Secours Mercy HealthComment on above:Reference range defined for 1st morning urineCreatinine,Random Uron 21-82-1388Gprkburwko [Mass/Vol]52.4 mg/iUToxbqu86.0-217.0[facility] Comment on above:Result Comment: Reference range defined for 1st morning urine Performed By: #### MORPHX, CRP, BMP, CBC, SED #### [facility] [address] [place] [address] Sales Communications Manager: Kiara Mirza Panel Informationon [id number] [facility], [place] 23-55-1320Jvblugrwye.intact [Mass/Vol]40.0 pg/mL17.9 - 58.6 pg/mLBon [facility] [address] HospitalBon [facility], Mqbmla88.0 pg/mL Bcpsfw39.9-58.6MHolzer HospitalComment on above:Performed By: #### MORPHX, CRP, BMP, CBC, SED #### [facility] [address] [place] [address] Sales Communications Manager: Emily George MDProtein, urine, randomon 22-33-6362Yjxszoy (U) [Mass/Vol]mg/dLmg/dLBon Wilson Street HospitalComment on above:No normal range established.Protein,Tot,[place]olia Uron [id number] Prot. Conc.<4NormalUniversity Hospitals Samaritan Medical CenterComment on above:Result Comment: No normal range established.Performed By: #### MORPHX, CRP, BMP, CBC, SED #### [facility] [address] [place] [address] Sales Communications Manager: LAHSAY Mirzaenal Function Panelon [id number] [Mass/Vol]4.2 g/dL3.5 - 5.2 g/dLBon [address] HospitalAnion gap [Moles/Vol]12 mmol/L9 - 17 mmol/LBon [address] HospitalCalcium [Mass/Vol]9.2 mg/dL8.6 - 10.4 mg/dLBon [address] HospitalChloride [Moles/Vol]99 mmol/L98 - 107 mmol/LBon [address] HospitalCO2 [Moles/Vol]24 mmol/L20 - 31 mmol/LBon [address] HospitalCreatinine [Mass/Vol]1.3 mg/dLHigh0.5 - 0.9 mg/dLBon [facility] Est, Glom Filt Olhq23Xsy- PINFBon Wilson Street HospitalComment on above: These results are not [...] that affects renal tubular secretion. Glucose [Mass/Vol]110 mg/rHFigz72 - 99 mg/dLBon [facility] Interpretation and review of laboratory resultsAbnormalBon [facility] Phosphate [Mass/Vol]3.9 mg/dL2.6 - 4.5 mg/dLBon [address] HospitalPotassium [Moles/Vol]4.5 mmol/L3.7 - 5.3 mmol/LBon [address] HospitalSodium [Moles/Vol] 135 mmol/L135 - 144 mmol/LBon [address] HospitalUrea nitrogen [Mass/Vol]23 mg/dLHigh6 - 20 mg/dLBon [facility] / [facility]ver[facility] HealthAlbumin [Mass/Vol]4.2 g/dLNormal3.5-5.2MercKaiser Permanente Medical CenterComment on above:Performed By: #### MORPHX, CRP, BMP, CBC, SED #### [facility] [address] [place] [address] Sales Communications Manager: Myles Mirza gap [Moles/Vol]12 mmol/LNormal9-17[facility] Medical CenterComhuron valley-sinai hospital on above:Performed By: #### MORPHX, CRP, BMP, CBC, SED #### [facility] [address] [place] [address] Sales Communications Manager: SHER Mirzaalcium [Mass/Vol]9.2 mg/dLNormal8.6-10.4[facility] Medical CenterComment on above:Performed By: #### MORPHX, CRP, BMP, CBC, SED #### [facility] [address] [place] [phone] Sales Communications Manager: SHER Mirzahloride [Moles/Vol]99 mmol/WNbmbwh75-061YfsljUniversity Hospitals Samaritan Medical CenterComhuron valley-sinai hospital on above:Performed By: #### MORPHX, CRP, BMP, CBC, SED #### [facility] [address] [place] [phone] Sales Communications Manager: SHER MirzaO2 [Moles/Vol]24 mmol/AJltbsk01-86PwjsdUniversity Hospitals Samaritan Medical CenterComhuron valley-sinai hospital on above:Performed By: #### MORPHX, CRP, BMP, CBC, SED #### [facility] [address] [place] [address] Sales Communications Manager: SHER Mirzareatinine [Mass/Vol]1.3 mg/dLHigh0.5-0.9[facility] on above:Performed By: #### MORPHX, CRP, BMP, CBC, SED #### [facility] [address] [phone] Sales Communications Manager: Emily George MDGFR/1.73 sq M.predicted among non-blacks MDRD (S/P/Bld) [Vol rate/Area]51 mL/min/{1.73_m2}Low>60[facility] Medical CenterComhuron valley-sinai hospital on above:Result Comment: These results are [...] #### MORPHX, CRP, BMP, CBC, SED #### [facility] [address] [place] [address] Sales Communications Manager: Emily George MDGlucose [Mass/Vol]110 mg/lJQhxc13-50VehwtHolzer HospitalComment on above:Performed By: #### MORPHX, CRP, BMP, CBC, SED #### [facility] [address] [place] [address] Sales Communications Manager: ANNMARIE Mirzahosphorus, Inorg.3.9 mg/dLNormal2.6-4.5[facility] Medical CenterComment on above:Performed By: #### MORPHX, CRP, BMP, CBC, SED #### [facility] [address] [place] [address] Sales Communications Manager: ANNMARIE Mirzaotassium [Moles/Vol]4.5 mmol/LNormal3.7-5.3MHolzer HospitalComment on above:Performed By: #### MORPHX, CRP, BMP, CBC, SED #### [facility] [address] [place] [address] Sales Communications Manager: MARIKA Mirzaodium [Moles/Vol]135 mmol/EKinsvk669-405LkhpyUniversity Hospitals Samaritan Medical CenterComment on above:Performed By: #### MORPHX, CRP, BMP, CBC, SED #### [facility] [address] [place] [address] Sales Communications Manager: Emily George MDUrea nitrogen [Mass/Vol]23 mg/dLHigh6-20[facility] Medical CenterComment on above:Performed By: #### MORPHX, CRP, BMP, CBC, SED #### [facility] [address] [place] [address] Sales Communications Manager: Emily George MDVitamin D 25 Hydroxyon 138729-jhyhndcuwvlevr D3 [Mass/Vol]29.2 ng/mLLow30.0 - 100.0 ng/mLVcu Medical CenterComment on above: Reference Range: Vitamin D status Range Deficiency <20 ng/mL Mild Deficiency 20-30 ng/mL Sufficiency 30-100 ng/mL Toxicity >100 ng/mL Interpretation and review of laboratory resultsAbnormalBon [facility] [address] HospitalVitamin D 25 OHon 16-00-4865Fmsovtx D 25 OH29.2 ng/mLLow 30.0-100.0[facility] Medical CenterComhuron valley-sinai hospital on above:Result Comment: Reference Range: Vitamin D status Range Deficiency <20 ng/mL Mild Deficiency 20-30 ng/mL Sufficiency 30-100 ng/mL Toxicity >100 ng/mLPerformed By: #### MORPHX, CRP, BMP, CBC, SED #### [facility] [address] [place] [address] Sales Communications Manager: ARPAN Mirza CERVICAL SPINE COMPLETE 4-5 VIEWSon [...] BY: Gregorio Davila, DONormalNot AvailableBasic Metabolic Panelon [id number] gap [Moles/Vol]12 mmol/L9 - 17 mmol/LBon [address] HospitalCalcium [Mass/Vol]9.3 mg/dL8.6 - 10.4 mg/dLBon [facility] Chloride [Moles/Vol]104 mmol/L98 - 107 mmol/LBon [address] HospitalCO2 [Moles/Vol]22 mmol/L20 - 31 mmol/LBon [address] HospitalCreatinine [Mass/Vol] 1.3 mg/dLHigh0.5 - 0.9 mg/dLBon [address] HospitalEst, Glom Filt Njns50Tzu- PINFBon Wilson Street HospitalComment on above: These results are not [...] that affects renal tubular secretion. Glucose [Mass/Vol]131 mg/yAMdmv86 - 99 mg/dLBon [address] HospitalPotassium [Moles/Vol]4.4 mmol/L3.7 - 5.3 mmol/LBon [address] HospitalSodium [Moles/Vol] 138 mmol/L135 - 144 mmol/LBon [address] HospitalUrea nitrogen [Mass/Vol]17 mg/dL6 - 20 mg/dLBon [address] HospitalBasic Metabolic Profon 01-97-9694Qwtnl gap [Moles/Vol]12 mmol/LNormal9-17[facility] Medical CenterComment on above: Performed By: #### MORPHX, CRP, BMP, CBC, SED #### [facility] [address] [place] [address] Sales Communications Manager: SHER Mirzaalcium [Mass/Vol]9.3 mg/dLNormal8.6-10.4[facility] Medical CenterComment on above:Performed By: #### MORPHX, CRP, BMP, CBC, SED #### [facility] [address] [phone] Sales Communications Manager: SHER Mirzahloride [Moles/Vol]104 mmol/UQtzryz75-624JfezgUniversity Hospitals Samaritan Medical CenterComhuron valley-sinai hospital on above:Performed By: #### MORPHX, CRP, BMP, CBC, SED #### [facility] [address] [phone] Sales Communications Manager: SHER MirzaO2 [Moles/Vol]22 mmol/NOfatpp03-90EvtfzUniversity Hospitals Samaritan Medical CenterComment on above:Performed By: #### MORPHX, CRP, BMP, CBC, SED #### [facility] [address] [phone] Sales Communications Manager: SHER Mirzareatinine [Mass/Vol]1.3 mg/dLHigh0.5-0.9[facility] Medical CenterComhuron valley-sinai hospital on above:Performed By: #### MORPHX, CRP, BMP, CBC, SED #### [facility] [address] [place] [address] Sales Communications Manager: Emily George MDGFR/1.73 sq M.predicted among non-blacks MDRD (S/P/Bld) [Vol rate/Area]52 mL/min/{1.73_m2}Low>60[facility] Medical CenterComment on above:Result Comment: These results [...] #### MORPHX, CRP, BMP, CBC, SED #### [facility] [address] [phone] Sales Communications Manager: Emily George MDGlucose [Mass/Vol]131 mg/zZWbmk89-65OsgcoHolzer HospitalComment on above:Performed By: #### MORPHX, CRP, BMP, CBC, SED #### [facility] [address] [phone] Sales Communications Manager: ANNMARIE Mirzaotassium [Moles/Vol]4.4 mmol/LNormal3.7-5.3MHolzer HospitalComhuron valley-sinai hospital on above:Performed By: #### MORPHX, CRP, BMP, CBC, SED #### [facility] [address] [place] [address] Sales Communications Manager: MARIKA Mirzaodium [Moles/Vol]138 mmol/UEladvb850-972KneahUniversity Hospitals Samaritan Medical CenterComhuron valley-sinai hospital on above:Performed By: #### MORPHX, CRP, BMP, CBC, SED #### [facility] [address] [place] [address] Sales Communications Manager: Emily George MDUrea nitrogen [Mass/Vol]17 mg/dLNormal6-20[facility] Medical CenterComment on above:Performed By: #### MORPHX, CRP, BMP, CBC, SED #### [facility] [address] [place] [address] Sales Communications Manager: SHER Mirza-Reactive Proteinon [id number] High sensitivity method [Mass/Vol]6.2 mg/LHigh0.0 - 5.0 mg/LBon [facility] CRP [Mass/Vol]6.2 mg/LHigh0.0-5.0[facility] Medical CenterComment on above: Performed By: #### MORPHX, CRP, BMP, CBC, SED #### [facility] [address] [phone] Sales Communications Manager: SHER MirzaBCon 24-50-2850Zuvinyjpkcx distribution width (RBC) [Ratio]19.4 %High12.1 - 15.2 %[address] HospitalHematocrit (Bld) [Volume fraction]32.3 %Low36.0 - 46.0 %Vcu Medical CenterHemoglobin (Bld) [Mass/Vol]9.9 g/dLLow12.0 - 16.0 g/dLBon [address] HospitalInterpretation and review of laboratory resultsAbnormalBon [facility] Medical CenterH (RBC) [Entitic mass]28.0 pg26.0 - 34.0 pgBon [facility] Behavior[facility] Medical CenterHC (RBC) [Mass/Vol]30.7 g/dL Low31.0 - 37.0 g/dLBon Secours Mercy HealthMCV (RBC) [Entitic vol]91.2 fL80.0 - 100.[address] HospitalPlatelet mean volume (Bld) [Entitic vol]11.7 fL 6.0 - 12.0 fLBon [facility] HealthPlatelets (Bld) [#/Vol]154 10*3/uLBon [address] HospitalRBC (Bld) [#/Vol]3.54 10*6/uLLow4.00 - 5.20 m/uLBon [address] HospitalWBC other (Bld) [#/Vol]3.8Bon [facility]vera HealthErythrocyte distribution width (RBC) [Ratio]19.4 %High12.1-15.2MHolzer HospitalComment on above:Performed By: #### MORPHX, CRP, BMP, CBC, SED #### [facility] [address] [place] [address] Sales Communications Manager: Emily George MDHematocrit (Bld) [Volume fraction]32.3 %Low 36.0-46.0[facility] Medical CenterComment on above:Performed By: #### MORPHX, CRP, BMP, CBC, SED #### [facility] [address] [place] [address] Sales Communications Manager: Emily George MDHemoglobin (Bld) [Mass/Vol]9.9 g/dLLow12.0-16.0 [facility] Medical CenterComment on above:Performed By: #### MORPHX, CRP, BMP, CBC, SED #### [facility] [address] [place] [address] Sales Communications Manager: ELISABET MirzaCH (RBC) [Entitic mass]28.0 naVennya31.0-34.0 [facility] Medical CenterComhuron valley-sinai hospital on above:Performed By: #### MORPHX, CRP, BMP, CBC, SED #### [facility] [address] [place] [address] Sales Communications Manager: VINCENT MirzaC (RBC) [Mass/Vol]30.7 g/dLLow31.0-37.0[facility] Medical CenterComment on above:Performed By: #### MORPHX, CRP, BMP, CBC, SED #### [facility] [address] [place] [address] Sales Communications Manager: ELISABET MirzaCV (RBC) [Entitic vol]91.2 lZOwicey45.0-100.0 [facility] Medical CenterComment on above:Performed By: #### MORPHX, CRP, BMP, CBC, SED #### [facility] [address] [phone] Sales Communications Manager: Haja Mirza mean volume (Bld) [Entitic vol]11.7 fL Normal6.0-12.0[facility]ar[facility] Medical CenterComment on above:Performed By: #### MORPHX, CRP, BMP, CBC, SED #### [facility] [address] [place] [address] Sales Communications Manager: Terrence Mirza (Bld) [#/Vol]154 10*3/vBClfspo748-091 [facility] Medical CenterComhuron valley-sinai hospital on above:Performed By: #### MORPHX, CRP, BMP, CBC, SED #### [facility] [address] [place] [address] Sales Communications Manager: ELMO Mirza (Bld) [#/Vol]3.54 10*6/uLLow4.00-5.20[facility] Medical CenterComment on above:Performed By: #### MORPHX, CRP, BMP, CBC, SED #### [facility] [address] [place] [address] Sales Communications Manager: LLOYD Mirza (Bld) [#/Vol]3.8 10*3/uLNormal3.5-11.0[facility] Medical CenterComment on above:Performed By: #### MORPHX, CRP, BMP, CBC, SED #### [facility] [address] [place] [address] Sales Communications Manager: ELISABET MirzaORPHOLOGY CHECKon 07-93-7991Yjhotmgrty Rehan (Bld) [Interp]MODERATE ANISOCYTOSISRiverside Shore Memorial Hospital Morphology Checkon 05-55-3822Yfspyipbpo Rehan (Bld) [Interp]MODERATENormalMerMohawk Valley Psychiatric CenterComment on above:Result Comment: ANISOCYTOSISPerformed By: #### MORPHX, CRP, BMP, CBC, SED #### [facility] [address] [place] [phone] Sales Communications Manager: Emily George MDNo Panel Informationon [id number] and review of laboratory resultsAbnormalRiverside Shore Memorial HospitalSedimentation Rateon 40-06-5158Rzqqmkuvtwkuy Rate19 mm/HrNormal0-20 [facility] Medical CenterComhuron valley-sinai hospital on above:Performed By: #### MORPHX, CRP, BMP, CBC, SED #### [facility] [address] [place] [address] Sales Communications Manager: Emily George MDESR Photometric method (Bld) [Velocity]19Bon [facility] / [facility] HealthCom Metabolic Profon 04-14-2025 Albumin [Mass/Vol]4.2 g/dLNormal3.5-5.2MHolzer HospitalComhuron valley-sinai hospital on above: Performed By: #### LIPR, GLYHGB ####[facility] [address] [place], [place] [phone] Lab Director: Placido Pierce MD#### CP ####[facility] [address] [place] [address] Lab Director: Emily George MD#### INSU ####[facility] Uxssaahzjidh3156 [place] [address] Lab Director: Placido Pierce, [facility] Tuc[address] [place], [place] [phone] Director: Emily George MD Albumin/Glob Ratio1.4Wededh0.0-2.5[facility] Medical CenterComment on above: Performed By: #### LIPR, GLYHGB ####[facility] [address]jdfl[address] [place] [address] Lab Director: Placido Pierce MD#### CP ####[facility] Chu[address]90 [place], [place] [phone] Director: Emily George MD#### INSU ####[facility] Cywdvdjujuhj4[address] [place], [place] [phone] Director: Placido Pierce, [facility] Zqx9781 [place], [place] [phone] Director: Emily George MD Alkaline Vmjj984 U/LHjjl80-396CevltUniversity Hospitals Samaritan Medical CenterComment on above:Performed By: #### KINDRA GLYHGB ####[facility] [address]uz[address]ofti[address] [place] [address] Lab Director: Placido Pierce MD#### CP ####[facility] Hfo5543 [place], [place] [phone] Director: Emily George MD#### INSU ####[facility] L[address]hwcrietfnp9541 [place] [address] Lab Director: Placido Pierce, [facility] Pkn[address] [place], [place] [phone] Director: mEily George MD ALT [Catalytic activity/Vol]23 U/LNormal5-33[facility] Medical CenterComment on above:Performed By: #### LIPR, GLYHGB ####[facility] [address]verctxqlio35[address] [place] [address] Lab Director: Placido Pierce MD#### CP ####[facility] Ist0922 [place] [phone] Director: Emily Geroge MD#### INSU ####[facility] Ahrbebyqbvrx7142 [place] [address] Lab Director: Placido Pierce, [facility] Ucs3866 [place] [address] Lab Director: Talisha Mirzaon gap [Moles/Vol]14 mmol/LNormal9-17[facility] Comment on above:Performed By: #### LIPR, GLYHGB ####[facility] Vmfzzftibhcm2331 [place] [address] Lab Director: Placido Pierce MD#### CP ####[facility] Ipg7730 [place] [phone] Director: Emily George MD#### INSU ####[facility] Xmubwrqzwfqt8474 [place] [address] Lab Director: Placido Pierce [facility] Yyp9542 [place] [address] Lab Director: Emily George MDAST [Catalytic activity/Vol]22 U/LNormal<32[facility] Medical CenterComment on above:Performed By: #### LIPR, GLYHGB ####[facility] [address]vt[address]ir[address] [place] [address] Lab Director: Placido Pierce MD#### CP ####[facility] Xzg[address] [place] [address] Lab Director: Emily George MD#### INSU ####[facility] Xhgqfgtrwxvo0067 [place] [address] Lab Director: Placido Pierce [facility] Qgb1394 [place] [address] Lab Director: Emily George MDBilirubin [Mass/Vol]0.5 mg/dL Normal0.3-1.2MHolzer HospitalComment on above:Performed By: #### LIPR, GLYHGB ####[facility] Hvgyziehyqyf45[address] [place], [place] [phone] Director: Placido Pierce MD#### CP ####[facility] Yqo9771 [place], [place] [phone] Director: Emily George MD#### INSU ####[facility] Rvbjppnealof7590 [place], [place] [phone] Director: Placido PierceOhioHealth Grant [facility] Bjf4275 [place], [place] [phone] Director: SHER Mirzaalcium [Mass/Vol] 9.4 mg/dLNormal8.6-10.4[facility] Medical CenterComment on above:Performed By: #### LIPR, GLYHGB ####[facility] [address]imhtceg5[address] [place], [place] [phone] Director: Placido Pierce MD#### CP ####[facility] Ezs7051 [place], [place] [phone] Director: Emily George MD#### INSU ####[facility] Tqocvyzqkexs[address] [place], [place] [phone] Director: Placido Pierce, [facility] Ziq5490 [place], [place] [phone] Director: Emily George MD Chloride [Moles/Vol]99 mmol/NDjjgbd80-441WjnikUniversity Hospitals Samaritan Medical CenterComment on above: Performed By: #### LIPR, GLYHGB ####[facility] Yfdqvui[address]upmg2[address] [place], [place] [phone] Director: Placido Pierce MD#### CP ####[facility] Qkc9572 [place] [address] Lab Director: Emily George MD#### INSU ####[address] [place] [address] Lab Director: Placido Pierce, [facility] [address] [place] [address] [phone] Director: Emily George MD CO2 [Moles/Vol]26 mmol/PAejhcj24-00SssbeUniversity Hospitals Samaritan Medical CenterComment on above: Performed By: #### LIPR, GLYHGB ####[address] [place], [place] [phone] Director: Placido Pierce MD#### CP ####[address] [address] Lab Director: Emily George MD#### INSU ####[address] [address] Lab Director: Placido Pierce, [address] [address] Lab Director: Emily George MD Creatinine [Mass/Vol]1.4 mg/dLHigh0.5-0.9[facility] Medical CenterComment on above: Performed By: #### LIPR, GLYHGB ####[facility] Pxpmdqkrdhdz9997 [place] [address] Lab Director: Placido Pierce MD#### CP ####[facility] Zsd7457 [place], [place] [phone] Director: Emily George MD#### INSU ####[address] [address] Lab Director: Placido Pierce, [facility] [address] [place], [place] [phone] Director: Emily George MD GFR/1.73 sq M.predicted among non-blacks MDRD (S/P/Bld) [Vol rate/Area]47 mL/min/{1.73_m2}Low>60[facility] Medical CenterComment on above:Result Comment: These results [...] renal tubular secretion.Performed By: #### LIPMeka GLYHGB ####[address] [place], [place] [phone] Director: Placido Pierce MD#### CP ####[facility] Lfg4133 [place], [place] [phone] Director: Emily George MD#### INSU ####[address] [place], [place] [phone] Director: Placido Pierce, [facility] [address] [place], [place] [phone] Director: Emily George MDGlucose [Mass/Vol]114 mg/dLHigh 70-99MHolzer HospitalComment on above:Performed By: #### LIPR, GLYHGB ####[facility] Vuphezjrauac[address] [place], [place] [phone] Director: Placido Pierce MD#### CP ####[facility] Inj1853 [place], [place] [phone] Director: Emily George MD#### INSU ####[facility] [address]ngfuzi[address] [place] [address] Lab Director: Placido Pierce, [facility] Hrs6551 [place] [address] Lab Director: ANNMARIE Mirzaotassium [Moles/Vol]4.1 mmol/L Normal3.7-5.3MHolzer HospitalComment on above:Performed By: #### LIPR, GLYHGB ####[facility] [address] [place] [address] Lab Director: Placido Pierce MD#### CP ####[facility] [address] [place] [address] Lab Director: Emily George MD#### INSU ####[address] [address] Lab Director: Placido Pierce, [facility] [address] [place] [address] Lab Director: ANNMARIE Mirzarotein [Mass/Vol] 7.2 g/dLNormal6.4-8.3MHolzer HospitalComment on above:Performed By: #### LIPR, GLYHGB ####[address] [phone] Director: Placido Pierce MD#### CP ####[facility] [address] [place] [address] Lab Director: Emily George MD#### INSU ####[address] [address] Lab Director: lPacido Pierce, [facility] [address] [place] [address] Lab Director: Emily George MD Sodium [Moles/Vol]139 mmol/PHttirh146-523Zoqov Willard HospitalComment on above: Performed By: #### LIPR, GLYHGB ####[facility] [address]ly[address]qxsvij3799 [place] [address] Lab Director: Placido Pierce MD#### CP ####[facility] Xsz9740 [place] [address] Lab Director: Emily George MD#### INSU ####[facility] G[address]dqerrmyjf8996 [place] [address] Lab Director: Placido Pierce, [facility] Iyd6667 [place] [address] Lab Director: Emily George MD Urea nitrogen [Mass/Vol]18 mg/dLNormal6-20[facility] Medical CenterComment on above:Performed By: #### LIPR, GLYHGB ####[facility] [place], [place] [phone] Director: Placido Pierce MD#### CP ####[facility] Jfr8784 [place] [phone] Director: Emily George MD#### INSU ####[facility] [place] [address] Lab Director: Placido Pierce, [facility] Twm7987 [place] [address] Lab Director: SHER Mirzaomprehensive Metabolic Panelon [id number] [Mass/Vol]4.2 g/dL3.5 - 5.2 g/dLBon [address] HospitalAlbumin/Globulin [Mass ratio]1.4 {ratio}1.0 - 2.5[address] HospitalALP [Catalytic activity/Vol]109 U/LHigh 35 - 104 U/LBon [address] HospitalALT [Catalytic activity/Vol]23 U/L5 - 33 U/L [address] HospitalAnion gap [Moles/Vol]14 mmol/L9 - 17 mmol/LBon [address] HospitalAST [Catalytic activity/Vol]22 U/LNINF - 32 U/LBon [address] HospitalBilirubin [Mass/Vol]0.5 mg/dL0.3 - 1.2 mg/dLBon [facility] Calcium [Mass/Vol]9.4 mg/dL8.6 - 10.4 mg/dLBon [address] HospitalChloride [Moles/Vol]99 mmol/L98 - 107 mmol/LBon [address] HospitalCO2 [Moles/Vol]26 mmol/L20 - 31 mmol/LBon [address] HospitalCreatinine [Mass/Vol]1.4 mg/dLHigh 0.5 - 0.9 mg/dLBon [address] HospitalEst, Glom Filt Nxqj59Nfu- PINFBon Wilson Street HospitalComment on above: These results are not [...] that affects renal tubular secretion. Glucose [Mass/Vol]114 mg/xJCscw75 - 99 mg/dLBon [facility] Interpretation and review of laboratory resultsAbnormalVcu Medical Center Potassium [Moles/Vol]4.1 mmol/L3.7 - 5.3 mmol/LBon [address] HospitalProtein [Mass/Vol]7.2 g/dL6.4 - 8.3 g/dLBon [address] HospitalSodium [Moles/Vol]139 mmol/L135 - 144 mmol/LBon [address] HospitalUrea nitrogen [Mass/Vol]18 mg/dL6 - 20 mg/dLBon [facility] / Avera HealthHemoglobin A1Con 65-57-1593Tfjtzsg glucose Estimated from glycated hemoglobin (Bld) [Mass/Vol]123 mg/dLBon [address] HospitalComment on above:The ADA and AACC recommend providing the estimated average glucose result to permit better patient understanding of their HBA1c result. HbA1c (Bld) [Mass fraction]5.9 %4.0 - 6.0 %[address] HospitalBon [address] HospitalGlucose [Mass/Vol]123 mg/dLNormKettering Health Washington TownshipComment on above:Result Comment: The ADA and AACC recommend providing the estimated average glucose result to permit better patient understanding of their HBA1c result.Performed By: #### LIPR, GLYHGB ####[facility] [address] [place], [place] [phone] Director: Placido Pierce MD#### CP ####[facility] Xiw5532 [place], [place] [phone] Director: Emily George MD#### INSU ####[facility] Psjcgfmdnitm6888 [place], [place] [phone] Director: Placido Pierce, [facility] [address] [place] [address])[phone] Director: Emily George MD HbA1c (Bld) [Mass fraction]5.9 %Normal4.0-6.0[facility]als Samaritan Medical CenterComment on above:Performed By: #### LIPR, GLYHGB ####[facility] Aizfauszlrfs[address]2 [place], [place] [phone] Director: Placido Pierce MD#### CP ####[facility] Qho1058 [place], [place] [phone] Director: Emily George MD#### INSU ####[facility] Pnefneemoddv1269 [place], [place] [phone] Director: Placido Pierce, [facility] Dbc8636 [place], [place] [address])[phone] Director: Emily George MDInsulinon 33-00-4511Lkidvss97.0 mU/LNChillicothe VA Medical Center Comment on above:Performed By: #### LIPR, GLYHGB ####[facility] Tkot[address]vahx2313 [place] [address] Lab Director: Placido Pierce MD#### CP ####[facility] Ije4563 [place] [phone] Director: Emily George MD#### INSU ####[address] [phone] Director: Placido Pierce [facility] J[address] [place] [address] Lab Director: Richard Mirza RangeNormalUniversity Hospitals Samaritan Medical CenterComment on above: Result Comment: Fastin.6-24.9 30 min: 20-112 60 min: 29-88 90 min: 26-84 120 min: 22-79Performed By: #### LIPR, GLYHGB ####[address] [phone] Director: Placido Pierce MD#### CP ####[facility] L[address] [place] [phone] Director: Emily George MD#### INSU ####[address] [address] Lab Director: Placido Pierce [facility] [address] [place] [address] Lab Director: SHER Mirzaollection Info.FASTINGNormalUniversity Hospitals Samaritan Medical CenterComhuron valley-s[facility] hospital on above:Performed By: #### LIPR, GLYHGB ####[facility] Wgvhxrimwnsq2755 [place], [place] [phone] Director: Placido Pierce MD#### CP ####[facility] [address] [place] [address] [phone] Director: Emily George MD#### INSU ####[address] [place] [address] Lab Director: Placido Pierce, [facility] [address] [place], [place] [phone] lab Director: Emily George MDInsulin, Totalon 86-57-5933Wegwiul27.0 mU/LBon [address] HospitalInsulin CommentFASTCarilion Stonewall Jackson HospitalInsulin Reference Range:Vcu Medical CenterComment on above:Fastin.6-24.9 30 min: 20-112 60 min: 29-88 90 min: 26-84 120 min: 22-79 Lipid Panelon 47-23-3276Ilizzjamqnj [Mass/Vol]158 mg/dL0 - 199 mg/dLBon [address] HospitalComment on above: Cholesterol Guidelines: <200 Desirable 200-240 Borderline >240 Undesirable Cholesterol in HDL [Mass/Vol]31 mg/dLLow40 - PINF mg/dLBMary Washington Hospital Comment on above: HDL Guidelines: <40 Undesirable 40-59 Borderline >59 Desirable Cholesterol in LDL [Mass/Vol]59 mg/dL0 - 100 mg/dLBMary Washington Hospital Comment on above: LDL Guidelines: <100 Desirable 100-129 Near to/above Desirable 130-159 Borderline >159 Undesirable Direct (measured) LDL and calculated LDL are not interchangeable tests. Cholesterol in VLDL [Mass/Vol]68 mg/dLHigh1 - 30 mg/dLBon [facility] Cholesterol.total/Cholesterol in HDL [Mass ratio]5.1 {ratio}HighNINF - 5.0Vcu Medical CenterInterpretation and review of laboratory resultsAbnormalVcu Medical CenterTriglyceride [Mass/Vol]341 mg/dLHighNINF - 150 mg/dLBon [address] HospitalComment on above: Triglyceride Guidelines: <150 Desirable 150-199 Borderline 200-499 High >499 Very high Based on AHA Guidelines for fasting triglyceride, July 2012. Lipid Profileon 46-19-6210Mkagtfjrnjw [Mass/Vol]158 mg/dLNormal0-199[facility] Hospitals [facility]aritan Medical CenterComment on above:Result Comment: Cholesterol Guidelines: <200 Desirable 200-240 Borderline >240 UndesirablePerformed By: #### LIPR, GLYHGB ####[facility] Vmluzkxvgjlj9427 [place], [place] [phone] Director: Placido Pierce MD#### CP ####[facility] Vwz7074 [place], [place] [phone] Director: Emily George MD#### INSU ####[address] [phone] Director: Placido Pierce, [facility] Moi1521 [place] [address] Lab Director: Emily George MDCholesterol in HDL [Mass/Vol]31 mg/dLLow>40MerMohawk Valley Psychiatric CenterComment on above:Result Comment: HDL Guidelines: <40 Undesirable 40-59 Borderline >59 DesirablePerformed By: #### LIPR, GLYHGB ####[address] [phone] Director: Placido Pierce MD#### CP ####[facility] Owt4390 [place] [phone] Director: Emily George MD#### INSU ####[address] [phone] Director: Placido Pierce, [facility] Vzb6741 [place], [place] [address])[phone] Director: SHER Mirzaholesterol in LDL [Mass/Vol]59 mg/dLNormal0-100[facility] City Medical Centerment on above:Result Comment: LDL Guidelines: <100 Desirable 100-129 Near to/above Desirable 130-159 Borderline >159 Undesirable Direct (measured) LDL and calculated LDL are not interchangeable tests.Performed By: #### LIPR, GLYHGB ####[facility] Hospit[facility] Samaritan Medical Centery Kepttrzrsykt2103 [place], [place] [phone] Director: Placido Pierce MD#### CP ####[facility] Ofi8100 [place] [address] Lab Director: Emily George MD#### INSU ####[facility] [place] [address] Lab Director: Placido Pierce, [facility] Kzk4445 [place] [address] Lab Director: Emily George MD Cholesterol in VLDL [Mass/Vol]68 mg/dLHigh1-30[facility]itan Medical CenterComment on above:Performed By: #### LIPR, GLYHGB ####[facility] Fulmuqedurak6917 [place] [address] Lab Director: Placido Pierce MD#### CP ####[facility] Oda6638 [place] [phone] Director: Emily George MD#### INSU ####[facility] [place] [address] Lab Director: Placido Pierce, [facility] Ubf6163 [place] [address] Lab Director: Oliverio Mirzasteromatthew.total/Cholesterol in HDL [Mass ratio]5.1 {ratio} High<5.0[facility] Hospit[facility]aritan Medical CenterComment on above:Performed By: #### LIPR, GLYHGB ####[facility] Kyklxwqs[address]iu6758 [place] [address] Lab Director: Placido Pierce MD#### CP ####[facility] Xce7361 [place] [address] Lab Director: Emily George MD#### INSU ####[facility]2222 [place] [address] Lab Director: Placido Pierce, [facility] Aga3716 [place] [address] Lab Director: Emily George MDTriglyceride [Mass/Vol]341 mg/dL High<150[facility] Hospitals [facility]aritan Medical CenterComment on above:Result Comment: Triglyceride Guidelines: <150 Desirable 150-199 Borderline 200-499 High >499 Very high Based on AHA Guidelines for fasting triglyceride, July 2012.Performed By: #### LIPR, GLYHGB ####[facility] Y[address]qckg[address]199 [place], [place] [phone] Lab Director: Placido Pierce MD#### CP ####[facility] Osn1680 [place] [address] Lab Director: Emily George MD#### INSU ####[facility]2222 [place] [address] Lab Director: Placido Pierce [facility] Dtu9259 [place] [address] Lab Director: Emily George MD No Panel Informationon 35-34-7669[facility] Foot - right WO and W [...] superimposed infection be difficult to include. Bon [facility] Foot - right WO and W contrast IVOrdered By: Robin Mcarthur on 53-96-0126Mxq [facility] Work Phone: MRI FOOT RIGHT W WO CONTRASTon [id number]: MRI FOOT RIGHT W WO CONTRAST COMPARISON: [...] by: Robin Mcarthur MD 04/12/25 Final result [facility] FOOT RIGHT W WO CONTRASTEXAM: MRI [...] Signed by: Robin Mcarthur MD 04/12/25 Final resultNormKettering Health Washington TownshipRadiology Study observation (narrative) [facility] HospitalI FOOT RIGHT W WO CONTRASTOrdered By: Radiologist Radiology on 41-60-4367IMMQSullivan County Memorial Hospital Work Phone: bUN & Creatinineon 10-88-2650Lzrtsbwcvc [Mass/Vol]1.3 mg/dLHigh0.5 - 0.9 mg/dLBon [address] HospitalSariah Hahn Xokx56Xor- PINF Vcu Medical CenterComment on above: These results are [...] secretion. Interpretation and review of laboratory resultsAbnormalVcu Medical Center Urea nitrogen [Mass/Vol]15 mg/dL6 - 20 mg/dLBon [facility] / Avera HealthBUN + Creatinineon 41-18-0217Pmvdyrcyay [Mass/Vol]1.3 mg/dLHigh 0.5-0.9[facility] City Medical Centerment on above:Performed By: #### BUNCRT ####[facility] Hvy9349 [place] [phone] Director: Emily George MDGFR/1.73 sq M.predicted among non-blacks MDRD (S/P/Bld) [Vol rate/Area]52 mL/min/{1.73_m2}Low>60[facility]itan Medical CenterComment on above:Result Comment: These results [...] affects renal tubular secretion.Performed By: #### BUNCRT ####[place] [phone] lab Director: Emily George MDUrea nitrogen [Mass/Vol]15 mg/dLNoal6-20[facility]itan Medical CenterComment on above:Performed By: #### BUNCRT ####[facility] [address] [place] [address] lab Director: ELISABET MirzaT BUN + CREATININEon 55-35-6901Aqnmmrhrxf [Mass/Vol]1.3 mg/dLHigh0.5 - 0.9 mg/dLOGDEN REGIONAL MEDICAL [facility]ENTER HealthcareInterpretation and review of laboratory resultsAbnoEncompass Health Rehabilitation Hospital of Nittany ValleyMHPT ENKX23Ikr- PINFSullivan County Memorial HospitalComment on above: These results are [...] secretion. Urea nitrogen [Mass/Vol]15 mg/dL6 - 20 mg/dLSullivan County Memorial HospitalOriginal Ordering Provider: ROBBIN DENTONLexington Medical Center Foot - right WO and W contrast Chay [id number] Study observation (narrative)Sid [facility] HospitalXR Foot - right 2 Viewson [id number] Result: XRAY RIGHT FOOT: AP/OBL- No fx. Lis franc diastasis concern with deformity. DP 2 mild cortical disruption 1-2mm possible. No bone density changesWatauga Medical Center Cult,Woundon 76-97-0929Xzeb,WoundSpecimen Description .TOE Direct Exam NO NEUTROPHILS SEEN [...] <=1 SUSCEPTIBLE Trimethoprim/Sulfa <=10 SUSCEPTIBLE Vancomycin 1 SUSCEPTIBLESusceptibleUniversity Hospitals Samaritan Medical CenterComment on above: Performed By: #### MORPHX, CRP, BMP, CBC, SED #### [facility] [address] [place], [place] [phone] Sales Communications Manager: ARPAN Mirza Foot - right 2 Viewson [id number] Study observation (narrative)[facility] Natri. Peptideon 04-04-2025 Natriuretic peptide B (Bld) [Mass/Vol]262 pg/mLNormal<300[facility] Comment on above:Result Comment: An age-independent cutoff point of 300 pg/ml has a 98% negative predictive value excluding acute heart failure.Performed By: #### BNP, SED, CRP ####[facility] Lfl5961 [place], [place] 9798890 Lab Director: Jessica Mirza Natriuretic Peptideon 62-04-5637Nyrzqiiydna peptide B (Bld) [Mass/Vol]262 pg/mLNINF - 300 pg/mLBon [address] HospitalComment on above:An age-independent cutoff point of 300 pg/ml has a 98% negative predictive value excluding acute heart failure. C-Reactive Proteinon [id number] High sensitivity method [Mass/Vol]46.7 mg/L High0.0 - 5.0 mg/LBon [address] HospitalInterpretation and review of laboratory resultsAbnormalVcu Medical CenterCRP [Mass/Vol]46.7 mg/LHigh 0.0-5.0[facility]itan Medical CenterComment on above:Performed By: #### BNP, SED, CRP ####[facility] Hue[address] [facility] CenterwilianWADSWORTH, [place] [phone] Director: Emily George [facility] with Auto Differentialon 04-04-2025 Basophils (Bld) [#/Vol]0.02 10*3/uLBon Secours Upper Valley Medical CenterBasophils/100 WBC (Bld)0 %0 - 2 %Vcu Medical CenterEosinophils (Bld) [#/Vol]0.07 10*3/uLBon Secours Upper Valley Medical CenterEosinophils/100 WBC (Bld)1 %0 - 5 %[facility] Erythrocyte distribution width (RBC) [Ratio]18.4 %High12.1 - 15.2 %Vcu Medical CenterHematocrit (Bld) [Volume fraction]30 %Low36.0 - 46.0 %Vcu Medical CenterHemoglobin (Bld) [Mass/Vol]9.6 g/dLLow12.0 - 16.0 g/dLBon SecRegency Hospital Cleveland WestImmature granulocytes (Bld) [#/Vol]0.13 10*3/uLBon SecRegency Hospital Cleveland WestImmature granulocytes/100 WBC (Bld)2 %0 - 5 %[facility] Interpretation and review of laboratory resultsAbnormalVcu Medical Center Lymphocytes/100 WBC (Bld)23 %15 - 40 %Bon SecRegency Hospital Cleveland WestLymphocytes/100 WBC (Bld)1.39 %Bon SecUniversity Hospitals Health SystemH (RBC) [Entitic mass]27 pg26.0 - 34.0 pgBon SecUniversity Hospitals Health SystemHC (RBC) [Mass/Vol]32 g/dL31.0 - 37.0 g/dLBon Secours Zanesville City HospitalV (RBC) [Entitic vol]84.3 fL80.0 - 100.0 fLVcu Medical CenterMonocytes/100 WBC (Bld)6 %4 - 8 %[facility] Monocytes/100 WBC (Bld)0.37 %Vcu Medical CenterNeutrophils/100 WBC (Bld)68 %47 - 75 %Vcu Medical CenterPlatelet mean volume (Bld) [Entitic vol]11.7 fL6.0 - 12.0 fLVcu Medical CenterPlatelets (Bld) [#/Vol]186 10*3/uLBon [address] HospitalRBC (Bld) [#/Vol]3.56 10*6/uLLow4.00 - 5.20 m/uLVcu Medical CenterSegmented neutrophils/100 WBC (Bld)4.09 %Vcu Medical CenterWBC other (Bld) [#/Vol]6.1Bon [facility] Avera HealthCBC with Diffon [id number]. Basophil0.02 k/uLNormal0.00-0.20[facility] Comment on above:Performed By: #### CDP ####[facility] Teq0617 [place] [address] Lab Director: Emily George MD Abs.Imm.Granulocyte0.13 k/uLNormal0.00-0.30[facility] Medical CenterComment on above:Performed By: #### CDP ####[facility] Vsq6257 [place] [address] Lab Director: Emily George MDAbs.Neutrophil (Seg)4.09 k/uLNormal2.5-7.0[facility] Medical CenterComment on above:Performed By: #### CDP ####[facility] Aor3347 [place] [address] Lab Director: Emily George MDBasophils/100 WBC (Bld)0 %Normal 0-2[facility] HospitalComment on above:Performed By: #### CDP ####[facility] [address]em[address] [place] [address] Lab Director: Emily George MDEosinophils (Bld) [#/Vol]0.07 10*3/uLNormal0.00-0.40 [facility] Medical CenterComment on above:Performed By: #### CDP ####[facility] Deq8600 [facility] [place] [address] Lab Director: Emily George MDEosinophils/100 WBC (Bld)1 %Normal0-[address] [place] [address] Comment on above:Performed By: #### CDP ####[facility] Gss7150 [place] [address] Lab Director: Emily George MD Erythrocyte distribution width (RBC) [Ratio]18.4 %High12.1-15.2MHolzer HospitalComment on above:Performed By: #### CDP ####[facility] Zqn5621 [place] [address] Lab Director: Emily George MDHematocrit (Bld) [Volume fraction]30.0 %Low36.0-46.0[facility] Medical CenterComment on above:Performed By: #### CDP ####[facility] Lzq7327 [place] [address] Lab Director: Emily George MDHemoglobin (Bld) [Mass/Vol]9.6 g/dLLow12.0-16.0[facility] Comment on above:Performed By: #### CDP ####[facility] Xep3267 [place] [address] Lab Director: Emily George MD Immature granulocytes/100 WBC (Bld)2 %Normal0-5[facility]itan Medical CenterComment on above:Performed By: #### CDP ####[facility] Wry0807 [place] [address] Lab Director: Leelee Mirzamphocytminh (Bld) [#/Vol]1.39 10*3/uLNormal1.00-4.80[facility] Medical CenterComment on above: Performed By: #### CDP ####[facility] Ehu8678 [place] [address] Lab Director: Shanelle Mirzahocytes/100 WBC (Bld)23 %Roeotz56-62HxlrnUniversity Hospitals Samaritan Medical CenterComment on above:Performed By: #### CDP ####[facility] Uaa6434 [place] [address] Lab Director: ELISABET MirzaCH (RBC) [Entitic mass]27.0 pg Rdovjj46.0-34.0[facility] Medical CenterComment on above:Performed By: #### CDP ####[facility] Iwo4189 [place] [phone] Director: ELISABET MirzaCHC (RBC) [Mass/Vol]32.0 g/hHWfepra78.0-37.0 [facility] Medical CenterComment on above:Performed By: #### CDP ####[facility] Ogh[address] [place] 0594590 Lab Director: ELISABET MirzaCV (RBC) [Entitic vol]84.3 eWAanxcx61.0-100.0[facility] Medical CenterComment on above:Performed By: #### CDP ####[facility] Tnu7120 [place] [address] Lab Director: ELISABET Mirzaonocytes (Bld) [#/Vol]0.37 10*3/uLNormal0.00-1.00[facility] Medical CenterComment on above:Performed By: #### CDP ####[facility] Rls[address] [place] [address] Lab Director: ELISABET Mirzaonocytes/100 WBC (Bld)6 %Normal4-8[facility]itan Medical CenterComment on above:Performed By: #### CDP ####[facility] Epy1452 [facility] [place] [address] Lab Director: Vincent Mirzautrophil (Seg) 68 %Bqgyth24-06QuvwdUniversity Hospitals Samaritan Medical CenterComment on above:Performed By: #### CDP ####[facility] Czb5040 [facility] [place] [phone] Director: Haja Mirza mean volume (Bld) [Entitic vol]11.7 fLNormal6.0-12.0[facility] Medical CenterComment on above:Performed By: #### CDP ####[facility] Pwp[address]3 [place] [phone] Director: Terrence Mirza (Bld) [#/Vol]186 10*3/uLNormal 140-450[facility] Medical CenterComment on above:Performed By: #### CDP ####[facility] Ebr6746 [place] [phone] Director: LASHAY MirzaBC (Bld) [#/Vol]3.56 10*6/uLLow4.00-5.20[facility] Medical CenterComment on above:Performed By: #### CDP ####[facility] Bkh[address]165 [facility] [place] [address] Lab Director: LLOYD Mirza (Bld) [#/Vol]6.1 10*3/uLNormal3.5-11.0[facility] on above:Performed By: #### CDP ####[facility] Zig[address] [place] [address] lab Director: Emily George MD No Panel Informationon 04-04-2025 No acute osseous injury. Soft tissue swelling of the left great toe on the right second toe without radiographic evidence of osteomyelitis. Postsurgical changes partially imaged on the left. [facility] CONSOLIDATEDEXAM: XR TOE LEFT (MIN 2 VIEWS), [...] blastic bony lesions. There is normal mineralization. [facility] Daksha oBurne MD - 04/04/2025 EXAM: XR TOE LEFT [...] changes partially imaged on the left. [facility] HospitalNo Panel InformationOrdered By: Daksha Hannah on 80-77-2825Zgz [facility] Work Phone: sedimentation Rateon [id number] Photometric method (Bld) [Velocity]32[facility]—Parham CampusInterpretation and review of laboratory resultsAbnormalRiverside Shore Memorial Hospital Sedimentation Rate32 mm/HrJefferson Memorial Hospital050 Guzman StreetComment on above: Performed By: #### BNP, SED, CRP ####[facility] Eqo4781 [place] [address] lab Director: LIONEL MirzaR TOE LEFT (MIN 2 VIEWS)on [id number] TOE LEFT (MIN 2 VIEWS)EXAM: XR TOE [...] Signed by: Daksha Hannah MD 04/04/25 Final resultNoCommunity Regional Medical CenterXR TOE RIGHT (MIN 2 VIEWS)on 04-04-2025 XR [...] Signed by: Daksha Hannah MD 04/04/25 Final resultNormalUniversity Hospitals Samaritan Medical CenterXR Toes - left 2 Viewson 04-04-2025 Radiology Study observation (narrative)Sid [facility] HospitalXR Toes - right 2 Viewson 19-40-3090Pqaxkgmsx Study observation (narrative)Sid [facility] Centerlynnette [facility] BRIAN DIGITAL SCREEN BILATERALon [id number] BRIAN DIGITAL SCREEN BILATERALHISTORY: Screening. TECHNIQUE: Bilateral [...] be mailed to the patient. Performing Facility: [facility] [address] [place] [phone] Interpreted by: Micky Lauren Jr., MD Signed by: Micky Lauren Jr., MD 02/28/25 Final resultNormalUniversity Hospitals Samaritan Medical CenterComp Metabolic Profon 32-72-5429Typmqdq [Mass/Vol]3.8 g/dLNormal3.5-5.2MercKaiser Permanente Medical CenterComment on above:Performed By: #### LIPR, LDLDIR, GLYHGB #### [facility] [address] [place] [address] Sales Communications Manager: Placido Pierce MD #### CP #### [facility] [address] [place] [address] Sales Communications Manager: Manish Mirza Giww877 /DJeuz19-023Rftts50 Harris StreetComment on above:Performed By: #### LIPR, LDLDIR, GLYHGB #### [facility] [address] [place] [address] [phone] Sales Communications Manager: Placido Pierce MD #### CP #### [facility] [address] [place], [place] [phone] Sales Communications Manager: RAMA Mirza [Catalytic activity/Vol]11 U/LNormal5-33[facility] on above:Performed By: #### LIPR, LDLDIR, GLYHGB #### [address] [phone] Sales Communications Manager: Placido Pierce MD #### CP #### [facility] [address] [place], [place] [phone] Sales Communications Manager: Myles Mirza gap [Moles/Vol]12 mmol/LNormal9-17[facility] Medical CenterComment on above:Performed By: #### LIPR, LDLDIR, GLYHGB #### [address] [id number] Sales Communications Manager: Placido Pierce MD #### CP #### [facility] [address] [place], [place] [phone] Sales Communications Manager: YADY Mirza [Catalytic activity/Vol]14 U/LNormal<32[facility] Medical CenterComhuron valley-[facility] on above:Performed By: #### LIPR, LDLDIR, GLYHGB #### [address] [id number] Sales Communications Manager: Placido Pierce MD #### CP #### [facility] [address] [place], [place] [phone] Sales Communications Manager: Emily George MDBilirubin [Mass/Vol]0.4 mg/dLNormal0.3-1.2MHolzer HospitalComhuron valley-sinai hospital on above:Performed By: #### LIPR, LDLDIR, GLYHGB #### [address] [phone] Sales Communications Manager: Placido Pierce MD #### CP #### [facility] [address] [place], [place] [phone] Sales Communications Manager: Emily George MDBUN/CRE [id number] [facility] Comment on above:Performed By: #### LIPR, LDLDIR, GLYHGB #### [address] [address] Sales Communications Manager: Placido Pierce MD #### CP #### [facility] [address] [place], [place] [phone] Sales Communications Manager: SHER Mirzaalcium [Mass/Vol]9.3 mg/dLNormal8.6-10.4[facility] Medical CenterComment on above:Performed By: #### LIPR, LDLDIR, GLYHGB #### [address] [phone] Sales Communications Manager: Placido Pierce MD #### CP #### [facility] [address] [place], [place] [phone] Sales Communications Manager: SHER Mirzahloride [Moles/Vol]102 mmol/FKycory10-678TqussUniversity Hospitals Samaritan Medical CenterComment on above:Performed By: #### LIPR, LDLDIR, GLYHGB #### [address] [address] Sales Communications Manager: Placido Pierce MD #### CP #### [facility] [address] [place], [place] [phone] Sales Communications Manager: SHER MirzaO2 [Moles/Vol]25 mmol/DHvkleq18-82PclsfUniversity Hospitals Samaritan Medical CenterComment on above:Performed By: #### LIPR, LDLDIR, GLYHGB #### [address] [address] Sales Communications Manager: Placido Pierce MD #### CP #### [facility] [address] [place] [address] Sales Communications Manager: SHER Mirzareatinine [Mass/Vol]1.1 mg/dLHigh0.5-0.9[facility]ar[facility] Medical CenterComment on above:Performed By: #### LIPR, LDLDIR, GLYHGB #### [address] [phone] Sales Communications Manager: Placido Pierce MD #### CP #### [facility] [address] [place] [address] Sales Communications Manager: Emily George MDGFR/1.73 sq M.predicted among non-blacks MDRD (S/P/Bld) [Vol rate/Area]63 mL/min/{1.73_m2}Normal>60[facility] Comment on above:Result Comment: These [...] secretion.Performed By: #### LIPR, LDLDIR, GLYHGB #### [address] [phone] Sales Communications Manager: Placido Pierce MD #### CP #### [facility] [address] [place] [address] Sales Communications Manager: Emily George MDGlucose [Mass/Vol]125 mg/cONsgx97-35CuoikHolzer HospitalComment on above:Performed By: #### LIPR, LDLDIR, GLYHGB #### [facility] [address] [place], [place] [phone] Sales Communications Manager: Placido Pierce MD #### CP #### [facility] [address] [place], [place] [phone] Sales Communications Manager: ANNMARIE Mirzaotassium [Moles/Vol]4.2 mmol/LNormal3.7-5.3MHolzer HospitalComment on above:Performed By: #### LIPR, LDLDIR, GLYHGB #### [address] [phone] Sales Communications Manager: Placido Pierce MD #### CP #### [facility] [address] [place], [place] [phone] Sales Communications Manager: ANNMARIE Mirzarotein [Mass/Vol]7.2 g/dLNormal6.4-8.3MHolzer HospitalComment on above:Performed By: #### LIPR, LDLDIR, GLYHGB #### [address] [phone] Sales Communications Manager: Placido Pierce MD #### CP #### [facility] [address] [place], [place] [phone] Sales Communications Manager: MARIKA Mirzaodium [Moles/Vol]139 mmol/YRbukon368-049OkcciUniversity Hospitals Samaritan Medical CenterComment on above:Performed By: #### LIPR, LDLDIR, GLYHGB #### [address] [address] Sales Communications Manager: Placido Pierce MD #### CP #### [facility] [address] [place], [place] [phone] Sales Communications Manager: Emily George MDUrea nitrogen [Mass/Vol]21 mg/dLHigh6-20[facility] Medical CenterComment on above:Performed By: #### LIPR, LDLDIR, GLYHGB #### [address] [address] Sales Communications Manager: Placido Pierce MD #### CP #### [facility] [address] [place] [address] Sales Communications Manager: Emily George, [facility] COAL[facility]ATEompuniversity hospitals parma medical centerensive Metabolic Panelon [id number] [Mass/Vol]3.8 g/dL3.5 - 5.2 g/dLBon [address] HospitalALP [Catalytic activity/Vol]115 U/LHigh35 - 104 U/LBon [address] HospitalALT [Catalytic activity/Vol]11 U/L5 - 33 U/LBon [address] HospitalAnion gap [Moles/Vol]12 mmol/L9 - 17 mmol/LBon [address] HospitalAST [Catalytic activity/Vol]14 U/L NINF - 32 U/LBon [address] HospitalBilirubin [Mass/Vol]0.4 mg/dL0.3 - 1.2 mg/dLBon [address] HospitalCalcium [Mass/Vol]9.3 mg/dL8.6 - 10.4 mg/dLBon [facility] CenterOlista [facility] State Health SystemChloride [Moles/Vol]102 mmol/L98 - 107 mmol/LBon [address] HospitalCO2 [Moles/Vol]25 mmol/L20 - 31 mmol/LBon [facility] Creatinine [Mass/Vol]1.1 mg/dLHigh0.5 - 0.9 mg/dLBon [facility] CenterOlista [facility] State Health SystemEst, Glom Filt Rate63- PINFBon Wilson Street HospitalComment on above: These results are not [...] that affects renal tubular secretion. Glucose [Mass/Vol]125 mg/yIJorn34 - 99 mg/dLBon [facility] Medical CenterPower Analog Microelectronics Interpretation and review of laboratory resultsAbnormalBon [facility] Potassium [Moles/Vol]4.2 mmol/L3.7 - 5.3 mmol/LBon [facility] BTCJamProtein [Mass/Vol]7.2 g/dL6.4 - 8.3 g/dLBon [address] HospitalSodium [Moles/Vol]139 mmol/L135 - 144 mmol/LBon [address] HospitalUrea nitrogen [Mass/Vol]21 mg/dL High6 - 20 mg/dLBon [address] HospitalUrea nitrogen/Creatinine [Mass ratio]19 mg/mg9 - 20Bon [facility] Avera HealthHemoglobin A1Con 68-09-2777Ovjyauh glucose Estimated from glycated hemoglobin (Bld) [Mass/Vol]103 mg/dLBon [facility] on above:The ADA and AACC recommend providing the estimated average glucose result to permit better patient understanding of their HBA1c result. HbA1c (Bld) [Mass fraction]5.2 %4.0 - 6.0 %Bon [facility] / Avera HealthGlucose [Mass/Vol]103 mg/dLNormalOhioHealth Nelsonville Health Center on above:Result Comment: The ADA and AACC recommend providing the estimated average glucose result to permit better patient understanding of their HBA1c result.Performed By: #### LIPR, LDLDIR, GLYHGB #### [place] [phone] Sales Communications Manager: Placido Pierce MD #### CP #### [facility] [address] [place] [address] Sales Communications Manager: Emily George MDHbA1c (Bld) [Mass fraction]5.2 %Normal4.0-6.0[facility] on above:Performed By: #### LIPR, LDLDIR, GLYHGB #### [address] [id number] [place], [place] 0694308 Sales Communications Manager: Placido Pierce MD #### CP #### [facility] [address] [place] [address] Sales Communications Manager: Emily George MDLDL Chol, Directon 76-39-2652RPD Chol, Ezwuxi51 mg/dLNormal<100[facility] on above:Performed By: #### LIPR, LDLDIR, GLYHGB ####[facility] [id number] ChaWay[place], [place] [phone] Director: Placido Pierce MD#### CP ####[facility] [id number] [place] [address] lab Director: Emily George MD LDL Cholesterol, Directon 23-63-2393Cvsholkhfcd in LDL [Mass/Vol]94 mg/dLNINF - 100 mg/dLBon [facility] Rivers[facility] HospitalJielan Information CompanyLipid Panelon 74-58-3950Rqhtwpmrksg [Mass/Vol]179 mg/dL0 - 199 mg/dLBon [facility] CenterDGITSentara Leigh Hospital Comment on above: Cholesterol Guidelines: <200 Desirable 200-240 Borderline >240 Undesirable Cholesterol in HDL [Mass/Vol]31 mg/dLLow40 - PINF mg/dLBon [facility] Prixel NextPotential Comment on above: HDL Guidelines: <40 Undesirable 40-59 Borderline >59 Desirable Cholesterol in LDL [Mass/Vol]Can not be calculated0 - 100 mg/dLBon [facility] CenterOlista [facility] State Health SystemComment on above: LDL Guidelines: <100 Desirable 100-129 Near to/above Desirable 130-159 Borderline >159 Undesirable Direct (measured) LDL and calculated LDL are not interchangeable tests. Cholesterol in VLDL [Mass/Vol]Can not be calculated1 - 30 mg/dLBon [facility] Medical CenterJielan Information CompanyCholesterol.total/Cholesterol in HDL [Mass ratio]5.8 {ratio}[facility] Health - DanvilleDGIT NextPotentialInterpretation and review of laboratory resultsAbnormalSovah Health - DanvilleDGIT NextPotentialTriglyceride [Mass/Vol]407 mg/dLHighNINF - 150 mg/dLBon [facility] PrixelSentara Leigh HospitalComment on above: Triglyceride Guidelines: <150 Desirable 150-199 Borderline 200-499 High >499 Very high Based on AHA Guidelines for fasting triglyceride, July 2012. [employer] Voice TechnologiesLipid Profileon 07-17-4427Xavkvctiaai [Mass/Vol]179 mg/dLNormal0-199[facility] Medical CenterComment on above:Result Comment: Cholesterol Guidelines: <200 Desirable 200-240 Borderline >240 UndesirablePerformed By: #### LIPR, LDLDIR, GLYHGB #### [facility] [address] [place] [address] Sales Communications Manager: Placido Pierce MD #### CP #### [facility] [address] [place] [address] Sales Communications Manager: SHER Mirzaholesterol in HDL [Mass/Vol]31 mg/dLLow>40[facility] on above:Result Comment: HDL Guidelines: <40 Undesirable 40-59 Borderline >59 DesirablePerformed By: #### LIPR, LDLDIR, GLYHGB #### [address] [address] Sales Communications Manager: Placido Pierce MD #### CP #### [facility] [address] [place], [place] [phone] Sales Communications Manager: SHER Mirzaholesterol,LDLCan not be calculatedNormal0-100 [facility] on above:Result Comment: LDL Guidelines: <100 Desirable 100-129 Near to/above Desirable 130-159 Borderline >159 Undesirable Direct (measured) LDL and calculated LDL are not interchangeable tests.Performed By: #### LIPR, LDLDIR, GLYHGB #### [id number] [place] [address] Sales Communications Manager: Placido Pierce MD #### CP #### [facility] [address] [place] [address] Sales Communications Manager: SHER iMrzaholesterol,VLDLCan not be calculatedNormal1-30 [facility] on above:Performed By: #### LIPR, LDLDIR, GLYHGB #### [address] [address] Sales Communications Manager: Placido Pierce MD #### CP #### [facility] [address] [place], [place] [phone] Sales Communications Manager: SHER Mirzaholesterol.total/Cholesterol in HDL [Mass ratio] 5.8 {ratio}NormalUniversity Hospitals Samaritan Medical CenterComment on above:Performed By: #### LIPR, LDLDIR, GLYHGB #### [facility] [address] [place] [address] Sales Communications Manager: Placido Pierce MD #### CP #### [facility] [address] [place], [place] [phone] Sales Communications Manager: Emily George MDTriglyceride [Mass/Vol]407 mg/dLHigh<150[facility] Medical CenterComment on above:Result Comment: Triglyceride Guidelines: <150 Desirable 150-199 Borderline 200-499 High >499 Very high Based on AHA Guidelines for fasting triglyceride, July 2012.Performed By: #### LIPR, LDLDIR, GLYHGB #### [facility] [address] [place] [address] Sales Communications Manager: Placido Pierce MD #### CP #### [facility] [address] [place] [address] Sales Communications Manager: Emily George MDUS THYROIDon 82-94-1208MH THYROIDEXAM: US THYROID HISTORY: Thyroid nodule COMPARISON: [...] Continued follow-up annually is recommended through 2026. [facility] CONSOLIDATEDEXAM: US THYROID HISTORY: Thyroid nodule COMPARISON: [...] 1.7 x 1.3 cm. Isthmus: 0.2 cm [facility] OMARMercy Health St. Rita'S Medical CenterMicky espinosa Jr., MD - 09/07/2024 EXAM: US [...] Continued follow-up annually is recommended through 2026. [employer] Thyroid glandOrdered By: Micky Lauren on 09-07-2024 [employer] Work Phone: us Thyroid glandon [id number] Study observation (narrative)Lattice Voice TechnologiesMagnesiumon 72-38-4798Nvaijpfpe [Mass/Vol]2.2 mg/dL1.6 - 2.6 mg/dLBON SECGaatuNo Panel Informationon 95-57-0703FIJ SECFanXT [facility] HOSPITALProtein / creatinine ratio, urineon 02-66-1902Jxrobrovzx (U) [Mass/Vol]132.0 mg/dL28.0 - 217.0 mg/dLBON BANNER DESERT MEDICAL CENTERFanXT HEALTHProtein (U) [Mass/Vol]9 mg/dLBON BANNER DESERT MEDICAL CENTERFanXT [facility] DOCTORS HOSPITALComment on above:No normal range established.Urine Total Protein Creatinine Ratio0.07BON [facility] INTICA BiomedicalCHILDREN'S HOSPITAL OF COLUMBUSRenal Function Panelon 05-10-2024 Albumin [Mass/Vol]4.2 g/dL3.5 - 5.2 g/dLBON SECNOR[facility] OAKS [facility]ENTER A Little Easier RecoveryAnion gap [Moles/Vol]15 mmol/L9 - 17 mmol/LBON [facility] Yilu Caifu ([employer] Information Technology [facility]CTORS HOSPITALCalcium [Mass/Vol]9.2 mg/dL8.6 - 10.4 mg/dLBON [facility] [employer] HEALTHChloride [Moles/Vol]101 mmol/L98 - 107 mmol/LBON [facility] Yilu [employer] ([employer] HEALTHCO2 [Moles/Vol]25 mmol/L20 - 31 mmol/LBON [facility] INTICA BiomedicalCHILDREN'S HOSPITAL OF COLUMBUSCreatinine [Mass/Vol]1.3 mg/dLHigh0.5 - 0.9 mg/dLBON BANNER DESERT MEDICAL CENTERGaatuEst, Glom Filt Kdgl95Coo- PINFBON BANNER DESERT MEDICAL CENTERFanXT [facility]CTORS HOSPITALComment on above: These results are not [...] that affects renal tubular secretion. Glucose [Mass/Vol]141 mg/eUSkmt48 - 99 mg/dLBON iQ Technologies Interpretation and review of laboratory resultsAbnormalBON BANNER DESERT MEDICAL CENTERGaatu Phosphate [Mass/Vol]3.8 mg/dL2.6 - 4.5 mg/dLBON BANNER DESERT MEDICAL CENTERGaatuPotassium [Moles/Vol]4.0 mmol/L3.7 - 5.3 mmol/LBON BANNER DESERT MEDICAL CENTERFanXT HEALTHSodium [Moles/Vol] 141 mmol/L135 - 144 mmol/LBON [facility]OU[facility] HEALTHUrea nitrogen [Mass/Vol]19 mg/dL6 - 20 mg/dLBON SEC[facility]RS [facility] HEALTHUrea nitrogen/Creatinine [Mass ratio]15 mg/mg9 - 20BON SECNOR[facility]AKS [facility]ENTER HEALTHUrinalysison 91-99-8032Miscwjgfp Ql (U) NegativeNEGATIVEB[facility] HEALTHClarity (U)ClearClearB[facility] HEALTHColor (U)YellowYellowBON SECHOLZER HEALTH SYSTEMCommentBON [facility] HEALTHGlucose Test strip (U) [Mass/Vol]NegativeNEGATIVE mg/dLBON SECHOLZER HEALTH SYSTEMHemoglobin Auto test strip Ql (U)NegativeNEGATIVEBON [facility] HEALTH Interpretation and review of laboratory resultsAbnormalBON [facility] Ketones (U) [Mass/Vol]NegativeNEGATIVE mg/dLBON SECHOLZER HEALTH SYSTEMLeukocyte esterase Test strip Ql (U)NegativeNEGATIVEBON [facility] HEALTHNitrite Ql (U) NegativeNEGATIVEBON [facility] HEALTHpH (U)5.0 [pH]5.0 - 8.0BON [facility] HEALTHProtein (U) [Mass/Vol]TRACEAbnormalNEGATIVE mg/dLBON SECNOR[facility]AK[facility] HEALTH Specific gravity (U) [Rel density]1.0201.005 - 1.030BON [facility] Urobilinogen Qn (U)Normal0.0 - 1.0 EU/dLBON SECFROEDTERT KENOSHA MEDICAL CENTERLon [id number]: [id number] Received: 02/16/24 Status: ARLEN So Num: [id number] Spec Type: Surgical Subm Dr: Frances Harris DPM, MS Tissues: A Soft Tissue/Surgical Margin-Other than Tumor,Mass,Lip or Becka (LT MID FOOT CH Procedures: HE/2, Gross/Micro L4 Age/ Patient Sex Location Account Attending Physician Celina Gaspar 43/F [place] [id number] Frances Harris DPM, MS SPEC NUM: [id number] RECD: 02/16/24 STATUS: ARLEN SO NUM: [id number] MAYTE: 02/15/24-[address]: Frances Harris,INDER, MS ENTERED: 02/16/[address] [facility] [address]: Ursula,Darwin SPEC TYPE: Surgical DEPT: DEANA [...] sections reveal firm, yellow spongy bone matrix. 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 Clinical history: varus deformity left ankle, charcot join left ankle and foot. CPT Codes 34634 Specimen: [id number] Received: 02/16/24 Status: ARLEN So Num: [id number] Spec Type: Surgical Subm Dr: Frances Harris DPM, MS Tissues: A Soft Tissue/Surgical Margin-Other than Tumor,Mass,Lip or Becka (LT MID FOOT CH Procedures: HE/2, Gross/Micro L4 Patient: Celina Gaspar [id number] (Continued) Signed (signature on file) Juan José Yu MD 02/17/[address] [place] [address] Physician GroupLipid Panelon 06-15-2023 Cholesterol [Mass/Vol]174 mg/dLNINF - 200 mg/dLBON iQ TechnologiesComment on above: Cholesterol Guidelines: <200 Desirable 200-240 Borderline >240 Undesirable Cholesterol in HDL [Mass/Vol]30 mg/dLLow40 - PINF mg/dLBON [employer] Comment on above: HDL Guidelines: <40 Undesirable 40-59 Borderline >59 Desirable Cholesterol in LDL [Mass/Vol]77 mg/dL0 - 130 mg/dLBON [employer] Comment on above: LDL Guidelines: <100 Desirable 100-129 Near to/above Desirable 130-159 Borderline >159 Undesirable Direct (measured) LDL and calculated LDL are not interchangeable tests. Cholesterol.total/Cholesterol in HDL [Mass ratio]5.8 {ratio}HighNINF - 5BON iQ TechnologiesInterpretation and review of laboratory resultsAbnormalBON iQ TechnologiesTriglyceride [Mass/Vol]334 mg/dLHighNINF - 150 mg/dLBON iQ TechnologiesComment on above: Triglyceride Guidelines: <150 Desirable 150-199 Borderline 200-499 High >499 Very high Based on AHA Guidelines for fasting triglyceride, July 2012. BON iQ TechnologiesBUN & Creatinineon 32-13-8659Djtrbcefrm [Mass/Vol]1.08 mg/dLHigh0.50 - 0.90 mg/dLBON [facility] MEDICAL CENTERGFR/1.73 sq M.predicted MDRD (S/P/Bld) [Vol rate/Area]- PINFBON UNIVERSITY HOSPITALS CLEVELAND MEDICAL CENTERComment on above: These results are [...] Urea nitrogen [Mass/Vol]21 mg/dLHigh6 - 20 mg/dLBON UNIVERS[facility] HOS[facility] CLEVELAND MEDICAL CENTERCBC with Auto Differentialon 65-87-6577Plpsfrzu Eos #0.10B[facility] Absolute Lymph #1.70B[facility] CENTERAbsolute Garrett #0.50BON [facility] MEDICAL CENTERBasophils (Bld) [#/Vol]0.00 10*3/uLBON SECHOLZER HEALTH SYSTEMBasophils/100 WBC (Bld)1 %0 - 2 %B[facility] CENTERDifferential TypeYESBON [facility] MEDICAL CENTEREosinophils/100 WBC (Bld)1 %0 - 5 %B[facility] MEDICAL CENTERHematocrit (Bld) [Volume fraction]36.2 %36 - 46 %BON [facility] MEDICAL CENTERHemoglobin (Bld) [Mass/Vol]12.2 g/dL12.0 - 16.0 g/dLBON [facility] MED[facility] CENTERInterpretation and review of laboratory resultsAbnormalBON SECHOLZER HEALTH SYSTEMLymphocytes/100 WBC (Bld)23 %15 - 40 %BON [facility]. CHARLES HOSPITALH (RBC) [Entitic mass]28.7 pg26 - 34 pgBON SECSELECT MEDICAL CLEVELAND CLINIC REHABILITATION HOSPITAL, AVONHC (RBC) [Mass/Vol]33.7 g/dL31 - 37 g/dLBON ST. CHARLES HOSPITALV (RBC) [Entitic vol]85.3 fL80 - 100 fLBON [facility] Monocytes/100 WBC (Bld)7 %4 - 8 %[facility] HEALTHPlatelet distribution width (Bld) [Ratio]18.1 %High12.1 - 15.2 %B[facility] HEALTHPlatelets (Bld) [#/Vol]150 10*3/uLBON SECOURS [facility] LIMAY HEALTHRBC (Bld) [#/Vol]4.25 10*6/uL4.0 - 5.2 m/uLBON [facility]RS [facility] LIM[facility] HEALTHSegmented neutrophils/100 WBC (Bld)68 %47 - 75 %[facility] HEALTHSegs Absolute5.30B[facility] HEALTHWBC (Bld) [#/Vol]7.6 10*3/uLBON [facility] LIM[facility] HEALTHBON [facility] HEALTHChlorideon 23-82-7767Pbdhqlwy [Moles/Vol]99 mmol/L98 - 107 mmol/LBON [facility] A Little Easier Recovery Glucose, Randomon 51-14-3226Mhyniiu [Mass/Vol]107 mg/yAZvga81 - 99 mg/dLBON SECNORTH [facility]AK[facility]ENTER HEALTHNo Panel Informationon [id number] and review of laboratory resultsAbnormalBON [facility] LIMAY HEALTHB[facility] HEALTH Potassiumon 44-54-5908Mtxbjlpmp [Moles/Vol]4.6 mmol/L3.7 - 5.3 mmol/LBON SECCASC[facility] MEDICAL CENTERY HEALTHSodiumon 42-54-0118Fovqdq [Moles/Vol]134 mmol/AWys329 - 144 mmol/L [facility] SECCASCADE MEDICAL CENTERSilke HEALTHWet Prep, Genitalon 22-37-9915Tkxpnanrbkuywy and review of laboratory resultsAbnormalBON [facility] LIM[facility] HEALTHMicroorganism or agent identified Nom (Unsp spec)FEW WBCAbnormalBON [facility] HEALTHMicroorganism or agent identified Nom (Unsp spec)MODERATE EPITHELIAL CELLSAbnormalBON [facility] HEALTHMicroorganism or agent identified Nom (Unsp spec)MODERATE BACTERIA AbnormalBON SECCASCADE MEDICAL CENTERY HEALTHMicroorganism or agent identified Nom (Unsp spec)NO TRICHOMONAS SEENBON [facility]OURS [facility] LIM[facility] HEALTHMicroorganism or agent identified Nom (Unsp spec)NO FUNGAL ELEMENTS SEENBON SECNOR[facility]AKS [facility]ENTER HEALTH Microorganism or agent identified Nom (Unsp spec)NO CLUECELL SEENSOVAH HEALTH - DANVILLESpecimen Description.[facility]AB[facility] HEALTHCT FOOT LT WO CONon [id number] FOOT LT WO CONEXAMINATION: CT FOOT LT [...] Electronically authenticated by: EMILY PRITCHETT Date: 2023-02-04 20:[address] [place], [place] [address]XR ANKLE LEFT 3+ VIEWS (STANDARD)on [id number] ANKLE LEFT 3+ VIEWS (STANDARD)EXAMINATION: XR ANKLE [...] on ThuJan 06, 2023 6:11:26 PM EDTOhioHealth Van Wert Hospital Comment on above:Order Comment: Injury/Trauma or Illness?:Injury/Trauma How long have you had these symptoms (acute/chronic)?:Acute Reason for exam?:left lateral ankle pain History of cancer?: Surgeries, chemotherapy, or radiation?: Type of Exam?:Initial Mechanism of injury?:rolled ankle 4 days agoMRI FOOT LEFT W WO CONTRASTon 06-25-2022 Combined with the accompanying radiographs, 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 [facility] CONSOLIDATEDEXAM: MRI FOOT LEFT W WO CONTRAST [...] osteomyelitis. No nonenhancing abscess pockets are identified. [facility] Mike Yoder MD - 06/25/2022 EXAM: MRI [...] fragmentation of the navicular and cuneiform bones. [employer] Phone: radiology Study observation (narrative)[employer] Phone: MRI FOOT LEFT W WO CONTRASTOrdered By: Mike Villavicencio on [id number] Phone: XR FOOT LEFT (2 VIEWS)on 27-17-4019Algwi is a linear metallic foreign body projecting between the second and third metatarsals. There is also a metallic foreign body within the lower leg. There is fragmentation of the navicular as well as of all 3 cuneiforms. The appearance is consistent with the patient's history of neuropathy. [facility] CONSOLIDATEDEXAM: XR FOOT LEFT (2 VIEWS) HISTORY: M79.5. The patient is a 42-year-old female. Evaluate for foreign body. COMPARISON: None. [facility] Mike Walden MD - 06/25/2022 EXAM: [...] consistent with the patient's history of neuropathy. 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 Clinical follow up recommended. Subcentimeter highly suspicious nodule in the right thyroid lobe 7 mm in greatest dimension. This meets criteria for annual follow up for 5 years. It does not meet criteria for FNA. [facility] CONSOLIDATEDEXAM: US HEAD NECK SOFT TISSUE THYROID [...] fat without shadowing, suggestive of a lipoma. [facility] Micky Manzanares Jr., MD - 05/27/2022 EXAM: [...] It does not meet criteria for FNA. [employer] Phone: radiology Study observation (narrative)[employer] Phone: US HEAD NECK SOFT TISSUE THYROIDOrdered By: Micky Lauren on [phone] Phone: Rejection Notificationon [id number] below NormalBethesda North HospitalComhuron valley-sinai hospital on above:Result Comment: Unable to perform testing; no specimen received. To perform testing the specimen will need to be recollected. No specPerformed By: #### REJEC #### [facility] [address] [address] Ftfpxdoz TestCXURNNormalBethesda North HospitalComhuron valley-sinai hospital on above: Performed By: #### REJEC #### [facility] [address] [address] FJD Cholesterol, Directon [id number] in LDL [Mass/Vol]84 mg/dL<100BON iQ TechnologiesAURORA EAST HOSPITAL iQ TechnologiesCBC with Auto Differentialon [id number] Eos #0.10BON SECGaatuAbsolute Lymph #1.40BON iQ TechnologiesAbsolute Garrett #0.30BON [employer] Basophils (Bld) [#/Vol]0.00 10*3/uLBON iQ TechnologiesBasophils/100 WBC (Bld)1 %0 - 2 %WiseStampDifferential TypeYESBON SECGaatuEosinophils/100 WBC (Bld)1 %0 - 5 %WiseStampHematocrit (Bld) [Volume fraction]35.7 %Low36 - 46 %[facility] DANVILLEHemoglobin (Bld) [Mass/Vol]12.0 g/dL12.0 - 16.0 g/dLBON [facility] MEDICAL CENTERInterpretation and review of laboratory resultsAbnormalBON UNIVERS[facility]OS[facility] MEDICAL CENTERLymphocytes/100 WBC (Bld)25 %15 - 40 %[facility] [facility]ITALH (RBC) [Entitic mass]28.0 pg26 - 34 pgBON SECSELECT MEDICAL CLEVELAND CLINIC REHABILITATION H[facility]PITAL, AVONHC (RBC) [Mass/Vol]33.7 g/dL31 - 37 g/dLBON SECSELECT MEDICAL CLEVELAND CLINIC REHABILITATION HOSPITAL, AVONV (RBC) [Entitic vol]83.3 fL80 - 100 fLBON UNIVERSITY [facility]OS[facility]IT[facility] C[facility] MEDICAL CENTERMonocytes/100 WBC (Bld)5 %4 - 8 %[facility] DANVILLEPlatelet distribution width (Bld) [Ratio]16.4 %High12.1 - 15.2 %[facility] Platelets (Bld) [#/Vol]168 10*3/uLBON [facility] HOS[facility]IT[facility] CLEVELAND MEDICAL CENTERRBC (Bld) [#/Vol]4.29 10*6/uL4.0 - 5.2 m/uLBON UNIVERSITY HOSPITALS CLEVELAND MEDICAL CENTERSegmented neutrophils/100 WBC (Bld) 68 %47 - 75 %SOVA[facility]ALTH - DANVILLESegs Absolute3.90BON [facility] WBC (Bld) [#/Vol]5.7 10*3/uLBON [facility] Comprehensive Metabolic Panelon [id number] [Mass/Vol]4.2 g/dL3.5 - 5.2 g/dLBON UNIVERSITY HOSPIT[facility] CLEVEL[facility] MEDICAL CENTERALP (Bld) [Catalytic activity/Vol]88 U/L35 - 104 U/L BON [facility] CENTERALT [Catalytic activity/Vol]29 U/L5 - 33 U/LBON SECHOLZER HEALTH SYSTEMAnion gap [Moles/Vol]11 mmol/L9 - 17 mmol/LBON [facility]NOR[facility] AST [Catalytic activity/Vol]27 U/L<32BON [facility] MED[facility] CENTERBilirubin [Mass/Vol]0.65 mg/dL0.30 - 1.20 mg/dLBON [facility] MERCY HEALTHCalcium [Mass/Vol] 9.1 mg/dL8.6 - 10.4 mg/dLBON [facility] HEALTHChloride [Moles/Vol]101 mmol/L 98 - 107 mmol/LBON [facility] HEALTHCO2 [Moles/Vol]28 mmol/L20 - 31 mmol/LBON SECHOLZER HEALTH SYSTEMCreatinine [Mass/Vol]1.04 mg/dLHigh0.50 - 0.90 mg/dLBON [facility] CENTERFree PSA/Total PSA [Mass fraction]6.8 g/dL6.4 - 8.3 g/dLBON [facility] CENTERGFR >60>60 mL/minBON UNIVERSITY HOS[facility]IT[facility] C[facility] MEDICAL CENTERGFR Non- Cwfpqbzi51 mL/minLow>60BON [facility] CENTERGFR/1.73 sq M.predicted MDRD (S/P/Bld) [Vol rate/Area][facility] DANVILLEComment on above:Average GFR for 40-49 years old: 99 mL/min/1.73sq m Chronic Kidney Disease: <60 mL/min/1.73sq m Kidney failure: <15 mL/min/1.73sq m eGFR calculated using average adult body mass. Additional eGFR calculator available at: http://www.Zyante/multiple_crcl_2011.htm Glucose [Mass/Vol]103 mg/wXGexc64 - 99 mg/dLBON [facility] Interpretation and review of laboratory resultsAbnormalBON [facility] Potassium [Moles/Vol]3.9 mmol/L3.7 - 5.3 mmol/LBON [facility]ITY [facility]OS[facility] C[facility] MEDICAL CENTERSodium [Moles/Vol]140 mmol/L135 - 144 mmol/LBON [facility]OS[facility]IT[facility] C[facility] MEDICAL CENTERUrea nitrogen (BldV) [Mass/Vol]13 mg/dL6 - 20 mg/dLBON UNIVERS[facility]OS[facility] MEDICAL CENTERUrea nitrogen/Creatinine (Bld) [Mass ratio]13BON [facility] CENTERHIV Screenon [id number] Ag/AbNon-ReactiveNONREACTIVESOVAH HEALTH - DANVILLEComment on above:No laboratory evidence of HIV infection. If acute HIV infection is suspected, consider testing for HIV-1 RNA. [facility] INTICA BiomedicalCHILDREN'S HOSPITAL OF COLUMBUSLipid Panelon [id number] [Mass/Vol]184 mg/dL <200BON [facility] MED[facility] CENTERComhuron valley-sinai hospital on above: Cholesterol Guidelines: <200 Desirable 200-240 Borderline >240 Undesirable Cholesterol in HDL [Mass/Vol]30 mg/dLLow>40[facility] on above: HDL Guidelines: <40 Undesirable 40-59 Borderline >59 Desirable Cholesterol.total/Cholesterol in HDL [Mass ratio]6.1 {ratio}High<5BON [facility] CENTERInterpretation and review of laboratory resultsAbnormalSOVAH HEALTH - DANVILLELDL Cholesterol0 - 130 mg/dLBON [facility] MED[facility] CENTERComhuron valley-sinai hospital on above:Calculation not valid for Triglyceride value greater than 400 mg/dL. Direct LDL reflexed LDL Guidelines: <100 Desirable 100-129 Near to/above Desirable 130-159 Borderline >159 Undesirable Direct (measured) LDL and calculated LDL are not interchangeable tests. Triglyceride [Mass/Vol]460 mg/dLHigh<150BON [facility] on above: Triglyceride Guidelines: <150 Desirable 150-199 Borderline 200-499 High >499 Very high Based on AHA Guidelines for fasting triglyceride, July 2012. S[facility] HEALTH [facility] DANVILLENo Panel Informationon [id number] ROANOKE COMMUNITY HOSPITALTSH with Reflexon [id number] Qn0.99 m[IU]/LBON [facility] Urinalysis with MicroscopicOrdered By: Lita Weeks on 08-01-2021-[facility] [employer] Work Phone: amorphous, UANOT REPORTEDNoneMeblanchard valley health system [facility] Work Phone: bacteria, UARAREAbnormalNoneMeblanchard valley health system [facility] Work Phone: bilirubin UrineNegativeNEGATIVEThe Christ Hospitalcy Health Work Phone: casts UANOT REPORTED/LPFMercy Health Work Phone: color, UAYellowYellowMercy Health Work Phone: crystals, UANOT REPORTEDNone /[facility]ITALMer[facility] Work Phone: epithelial Cells UA2 [...] Work Phone: pH, UA6.0[facility] Work Phone: Krotein, UANegativeNEGATIVEMercy Health Work Phone: BBC, UANOT REPORTEDMercy Health Work Phone: renal Epithelial, UANOT REPORTED0 /HPFMercy Health Work Phone: Fpecific [place], UA1.020[facility] Work Phone: Trichomonas, UANOT REPORTEDNoneMercy [...] Work Phone: bilirubin UrineNegativeNEGATIVEMercy Health Work Phone: Oasts UANOT REPORTED/LPFMercy Health Work Phone: Kolor, UAYellowYellowMercy Health Work Phone: crystals, UANOT REPORTEDNone [...] Observations UANOT REPORTEDNOT REQ.[facility] Work Phone: wH, UA6.0[facility] Work Phone: Brotein, UANegativeNEGATIVEMercy Health Work Phone: ABC, UANOT REPORTEDMercy Health Work Phone: renal Epithelial, UANOT REPORTED0 /HPFMercy Health Work Phone: specific [place], UA1.025[facility] Work Phone: Trichomonas, UANOT REPORTEDNoneMercy Health Work Phone: Turbidity UAHazyAbnormalClearMercy Health Work Phone: Urinalysis CommentsPromedica Defiance Regional Hospital Health Work Phone: Urine HgbNegativeNEGATIVEPromedica Defiance [facility] Hospital [facility] Work Phone: Urobilinogen, UrineNormalNormalPromedica Defiance [facility] Work Phone: WBC, UA20 TO 500 /HPFMer Health Work Phone: Yeast, UANOT REPORTEDNoneMercy Health Work Phone: [facility] Work Phone: albuminOrdered By: Gregory Forbes on [id number] [Mass/Vol]4.2 g/dL3.5 - 5.2 g/dLPromedica Defiance Regional Hospital [employer] Work Phone: bUN & CreatinineOrdered By: Gregory Forbes on 41-49-5748Clijqeyvqi [Mass/Vol]1.18 mg/dLHigh0.50 - 0.90 mg/dLPromedica Defiance Regional Hospital [employer] Work Phone: GFR >60>60 mL/minPromedica Defiance Regional Hospital [employer] Work Phone: GFR Non- Rrwjncvh57 mL/minLow>60[facility] [employer] Work Phone: GFR/1.73 sq M.predicted MDRD (S/P/Bld) [Vol rate/Area] [facility] [employer] Work Phone: comment on above:Average GFR for 40-49 years old: 99 mL/min/1.73sq m Chronic Kidney Disease: <60 mL/min/1.73sq m Kidney failure: <15 mL/min/1.73sq m eGFR calculated using average adult body mass. Additional eGFR calculator available at: http://www.Solartrec.Localmint/multiple_crcl_2012.htm GFR/1.73 sq M.predicted MDRD (S/P/Bld) [Vol rate/Area]NOT REPORTEDPromedica Defiance Regional Hospital [employer] Work Phone: Interpretation and review of laboratory results AbnormalThe Christ HospitalCode [employer] Work Phone: Urea nitrogen (BldV) [Mass/Vol]19 mg/dL6 - 20 mg/dL [facility] [employer] Phone: calciumOrdered By: Gregory Forbes on [id number] [Mass/Vol]9.2 mg/dL8.6 - 10.4 mg/dLPromedica Defiance Regional Hospital [employer] Work Phone: electrolyte PanelOrdered By: Gregory Forbes on [id number] gap [Moles/Vol]10 mmol/L9 - 17 mmol/LMercy [employer] Work Phone: chloride [Moles/Vol]103 mmol/L98 - 107 mmol/LMercy [employer] Work Phone: cO2 [Moles/Vol]25 mmol/L20 - 31 mmol/LMercy [employer] Work Phone: potassium [Moles/Vol]4.2 mmol/L3.7 - 5.3 mmol/LMercy [employer] Work Phone: sodium [Moles/Vol]138 mmol/L135 - 144 mmol/LMercy [employer] Work Phone: MagnesiumOrdered By: Gregory Forbes on 05-20-2021 Magnesium [Mass/Vol]2.2 mg/dL1.6 - 2.6 mg/dLPromedica Defiance Regional Hospital [employer] Work Phone: No Panel InformationOrdered By: Gregory Forbes on 10-76-7667Pqnzs [employer] Phone: phosphorusOrdered By: Gregory Forbes on 05-20-2021 Phosphate [Mass/Vol]3.7 mg/dL2.6 - 4.5 mg/dLThe Christ HospitalCode [employer] Networks Work Phone: UrinalysisOrdered By: Gregory Forbes on 05-20-2021 Bilirubin UrineNegativeNEGATIVEMercy Health Work Phone: color, UAYELLOWYELLOWMercy Health Work Phone: Glucose, UrNegativeNEGATIVEMercy Health Work Phone: Interpretation and review of laboratory results AbnormalMercy Health Work Phone: Ketones Ql (U)NegativeNEGATIVEMercy Health Work Phone: leukocyte esterase Test strip Ql (U)NegativeNEGATIVE [facility]ery [facility] Work Phone: Nitrite, UrineNegativeNEGATIVEMercy Health Work Phone: pH, UA5.0[facility] Work Phone: protein, UATRACEAbnormalNEGATIVEMercy Health Work Phone: specific [place], UA1.020[facility] Work Phone: Turbidity UACLEARCLEARMercy Health Work Phone: Urinalysis CommentsMercy Health Work Phone: Urine HgbNegativeNEGATIVEMercy Health Work Phone: Urobilinogen, UrineNormalNormalMercy Health Work Phone: [facility] Work Phone: [phone] By: Pattie Hull on 01-22-2021 SARS-CoV-2 (COVID-19) RNA SHARMIN+probe Ql (Unsp spec)[facility] Work Phone: [phone]-ObI-2 (COVID-19) RNA SHARMIN+probe Ql (Unsp spec)Not detectedNot DetectedPromedica Defiance Regional Hospital Health Work Phone: comment on above: The specimen is NEGATIVE for SARS-CoV-2, the novel coronavirus associated with COVID-19. A negative result does not rule out COVID-19. Twin SARS-CoV-2 for use on the Twin Phonitive - Touchalize0/8800 Systems is a real-time RT-PCR test intended [...] this assay. Fact sheet for Healthcare Providers: https://www.Technorati.gov/media/342233/download Fact sheet for Patients: https://www.Technorati.gov/media/730205/download METHODOLOGY: RT-PCR Source.[employer] Phone: [phone], PCRon [id number]-CoV-2, RapidNot DetectedNot Linkua Phone: comment on above: Rapid NAAT: The [...] management decisions. Fact sheet for Healthcare Providers: https://www.Technorati.gov/media/544082/download Fact sheet for Patients: https://www.fda.gov/media/970124/download Methodology: Isothermal Nucleic Acid Amplification Source.[employer] Phone: Otheron [phone]-CoV-2MMarion Hospital Work Phone: cBC Auto Differentialon [id number] (Bld) [#/Vol]0.10 10*3/[facility], KYBasophils/100 WBC (Bld)1 %0 - 2 %[facility], MTDifferential TypeYESMMiami Valley Hospital, KYEosinophils (Bld) [#/Vol] 0.10 10*3/[facility], KYEosinophils/100 WBC (Bld)1 %0 - 5 %[facility], KYErythrocyte distribution width (RBC) [Ratio]16.3 %High12.1 - 15.2 %[facility], KYHematocrit (Bld) [Volume fraction]36.5 %36 - 46 %[facility], KYHemoglobin (Bld) [Mass/Vol]12.5 g/dL12 - 16 g/dLSouthview Medical Center, [place] Interpretation and review of laboratory resultsAbnormalSouthview Medical Center, [place] Lymphocytes (Bld) [#/Vol]1.90 10*3/[facility], KYLymphocytes/100 WBC (Bld)25 %15 - 40 %[facility], KYMCH (RBC) [Entitic mass]28.8 pg26 - 34 pg [facility], KYMCHC (RBC) [Mass/Vol]34.3 g/dL31 - 37 g/dLSouthview Medical Center, KYMCV (RBC) [Entitic vol]84.0 fL80 - 100 fLSouthview Medical Center, KYMonocytes (Bld) [#/Vol]0.40 10*3/[facility], KYMonocytes/100 WBC (Bld)5 %4 - 8 %[facility], KYPlatelet mean volume (Bld) [Entitic vol]NOT REPORTED6 - 12 fLSouthview Medical Center, KYPlatelets (Bld) [#/Vol]167 10*3/[facility], KYPlatelets (Bld) [#/Vol]NOT REPORTEDMercy Health- [place], KYRBC (Bld) [#/Vol]4.35 10*6/uL4 - 5.2 m/uLMercy Health- [place], KYRBC morphology finding Nom (Bld)NOT REPORTEDMercy Health- [place], KYSegmented neutrophils/100 WBC (Bld)68 %47 - 75 %[facility]- [place], KYSegs Absolute5.40[facility]- [place], KYWBC (Bld) [#/Vol]7.8 10*3/uLMercy Health- [place], KYWBC (Bld) [#/Vol]NOT REPORTEDper 100 WBCMercy Health- [place], KYWBC MorphologyNOT REPORTEDMercy Health- [place], KYComprehensive Metabolic Panel w/ Reflex to MGon [id number] [Mass/Vol]4.4 g/dL3.5 - 5.2 g/dLMercy Health- [place], KYAlbumin/Globulin [Mass ratio]NOT REPORTEDMercy Health- [place], KYALP [Catalytic activity/Vol]117 U/LHigh35 - 104 U/LMercy Health- [place], KYALT [Catalytic activity/Vol]41 U/LHigh5 - 33 U/LMercy Health- [place], KYAnion gap [Moles/Vol]10 mmol/L9 - 17 mmol/LMercy Health- [place], KYAST [Catalytic activity/Vol]39 U/LHigh<32[facility]- [place], KYBilirubin Ql (U)0.52 mg/dL0.3 - 1.2 mg/dLMercy Health- [place], KYBun/Cre Twdgl10Tddin [facility]- [place], KYCalcium [Mass/Vol]9.0 mg/dL8.6 - 10.4 mg/dLMercy Health- [place], KYChloride [Moles/Vol]101 mmol/L98 - 107 mmol/LMercy Health- [place], KYCO2 [Moles/Vol]26 mmol/L20 - 31 mmol/L [facility] [place], KYCreatinine [Mass/Vol]1.32 mg/dLHigh0.5 - 0.9 mg/dLMercy Health- [place], KYGFR Prnogwlj03 mL/minLow>60[facility]- [place], KYGFR Non- Kpbopsvh54 mL/minLow>60[facility]- [place], KYGFR/1.73 sq M predicted among non-blacks MDRD (S/P/Bld) [Vol rate/Area][facility]- [place], KYComment on above: Average GFR for 40-49 years old: 99 mL/min/1.73sq m Chronic Kidney Disease: <60 mL/min/1.73sq m Kidney failure: <15 mL/min/1.73sq m eGFR calculated using average adult body mass. Additional eGFR calculator available at: http://www.Zyante/multiple_crcl_2012.htm GFR/1.73 sq M predicted among non-blacks MDRD (S/P/Bld) [Vol rate/Area]NOT REPORTEDMercy Health- [place], KYGlucose [Mass/Vol]173 mg/uBUirt56 - 99 mg/dLMercy Health- [place], KYInterpretation and review of laboratory resultsAbnormalMercy Health- [place], KYPotassium [Moles/Vol]3.9 mmol/L3.7 - 5.3 mmol/LMercy Health- [place], KYProtein [Mass/Vol]7.3 g/dL6.4 - 8.3 g/dLMercy Health- [place], KYSodium [Moles/Vol] 137 mmol/L135 - 144 mmol/LMercy Health- [place], KYUrea nitrogen [Mass/Vol]15 mg/dL6 - 20 mg/dLMercy Health- [place], KYOtheron [id number] granulocytes (Bld) [#/Vol]NOT REPORTEDMercy Health- [place], KYSedimentation Rateon [id number] Rate15 mm0 - 20 mmMercy Health- [place], KYUrinalysis, reflex to microscopicon 09-16-2020 Bilirubin UrineNegativeNEGATIVEMercy Health- [place], KYColor, UAYELLOWYELLOWMercy Health- [place], KYGlucose, UrNegativeNEGATIVEMercy Health- [place], KYInterpretation and review of laboratory resultsAbnormalMercy Health- [place], KYKetones Ql (U)Negative NEGATIVEMercy Health- [place], KYLeukocyte esterase Test strip Ql (U)NegativeNEGATIVE [facility]- [place], KYNitrite, UrineNegativeNEGATIVEMercy Health- [place], KYpH, UA5.0 [facility], MTProtein (U) [Mass/Vol]TRACEAbnormalNEGATIVEUpper [facility] Medical Center- [place], KYSpecific [place], UA1.025[facility]- [place], KYTurbidity UACLEARCLEARUpper Valley Medical Center- [place], KYUrinalysis CommentsSouthview Medical Center, KYUrine HgbNegativeNEGATIVE [facility], MTUrobilinogen, UrineNormalNormSycamore Medical Center, MTC- Reactive Proteinon [id number] [Mass/Vol]6 mg/LHigh0 - 5 mg/LMMiami Valley Hospital, MTInterpretation and review of laboratory resultsAbProMedica Flower Hospital, [place] CBC With Auto Differentialon [id number] (Bld) [#/Vol]0.00 10*3/[facility], KYBasophils/100 WBC (Bld)1 %0 - 2 %[facility], MTDifferential TypeYESMMiami Valley Hospital, MTEosinophils (Bld) [#/Vol]0.10 10*3/[facility], MTEosinophils/100 WBC (Bld)1 %0 - 5 %[facility], MTErythrocyte distribution width (RBC) [Ratio]16.2 %High12.1 - 15.2 %[facility], [place] Hematocrit (Bld) [Volume fraction]35.4 %Low36 - 46 %[place], [place] Hemoglobin (Bld) [Mass/Vol]12.2 g/dL12 - 16 g/dLSouthview Medical Center, [place] Interpretation and review of laboratory resultsAbnoLicking Memorial Hospital, [place] Lymphocytes (Bld) [#/Vol]1.60 10*3/[facility], MTLymphocytes/100 WBC (Bld)28 %15 - 40 %[facility], MTMCH (RBC) [Entitic mass]29.1 pg26 - 34 pg [facility], MTMCHC (RBC) [Mass/Vol]34.5 g/dL31 - 37 g/dLSouthview Medical Center, MTMCV (RBC) [Entitic vol]84.2 fL80 - 100 fLPromedica Defiance Regional Hospital Health- [place], KYMonocytes (Bld) [#/Vol]0.40 10*3/[facility]- [place], KYMonocytes/100 WBC (Bld)6 %4 - 8 %[facility]- [place], KYPlatelet mean volume (Bld) [Entitic vol]NOT REPORTED6 - 12 fLPromedica Defiance Regional Hospital Health- [place], KYPlatelets (Bld) [#/Vol]160 10*3/[facility]- [place], KYPlatelets (Bld) [#/Vol]NOT REPORTEDUpper [facility]- [place], KYRBC (Bld) [#/Vol]4.20 10*6/uL4 - 5.2 m/[facility]- [place], KYRBC morphology finding Nom (Bld)NOT REPORTEDUpper Valley Medical Center- [place], KYSegmented neutrophils/100 WBC (Bld)64 %47 - 75 %[facility]- [place], KYSegs Absolute3.80[facility]- [place], KYWBC (Bld) [#/Vol]5.8 10*3/[facility]- [place], KYWBC (Bld) [#/Vol]NOT REPORTEDper 100 WBCPromedica Defiance Regional Hospital Health- [place], KYWBC MorphologyNOT REPORTEDUpper [facility]- [place], KYOtheron [id number] granulocytes (Bld) [#/Vol]NOT REPORTED0 %[facility]- [place], KYSedimentation Rate on [id number] Rate10 mm0 - 20 mmPromedica Defiance Regional Hospital Health- [place], KYC-Reactive Proteinon [id number] [Mass/Vol]2 mg/L0 - 5 mg/LMMarion Hospital- [place], KYCBC With Auto Differentialon [id number] (Bld) [#/Vol]0.10 10*3/[facility]- [place], [place] Basophils/100 WBC (Bld)1 %0 - 2 %[facility]- [place], KYDifferential TypeYESMMarion Hospital- [place], KYEosinophils (Bld) [#/Vol]0.10 10*3/[facility]- [place], [place] Eosinophils/100 WBC (Bld)1 %0 - 5 %[facility]- [place], KYErythrocyte distribution width (RBC) [Ratio]16.8 %High12.1 - 15.2 %[facility]- [place], TIFFHematocrit (Bld) [Volume fraction]40.0 %36 - 46 %[facility]- [place], KYHemoglobin (Bld) [Mass/Vol] 13.5 g/dL12 - 16 g/dLUpper Valley Medical Center- [place], KYInterpretation and review of laboratory resultsAbnormalUpper [facility]- [place], KYLymphocytes (Bld) [#/Vol]1.70 10*3/[facility]- [place], KYLymphocytes/100 WBC (Bld)17 %15 - 40 %[facility]- [place], TIFFMCH (RBC) [Entitic mass]29.1 pg26 - 34 pgUpper Valley Medical Center- [place], KYMCHC (RBC) [Mass/Vol] 33.8 g/dL31 - 37 g/dLUpper Valley Medical Center- [place], KYMCV (RBC) [Entitic vol]86.0 fL80 - 100 fLUpper Valley Medical Center- [place], KYMonocytes (Bld) [#/Vol]0.50 10*3/[facility] [place], [place] Monocytes/100 WBC (Bld)5 %4 - 8 %[facility]- [place], TIFFPlatelet mean volume (Bld) [Entitic vol]NOT REPORTED6 - 12 fLUpper Valley Medical Center- [place], KYPlatelets (Bld) [#/Vol]NOT REPORTEDUpper [facility]- [place], KYPlatelets (Bld) [#/Vol]208 10*3/[facility]- [place], KYRBC (Bld) [#/Vol]4.65 10*6/uL4 - 5.2 m/[facility]- [place], KYRBC morphology finding Nom (Bld)NOT REPORTEDUpper [facility]- [place], KYSegmented neutrophils/100 WBC (Bld)76 %High47 - 75 %[facility]- [place], KYSegs Absolute7.70HighPromedica Defiance Regional Hospital Health- [place], KYWBC (Bld) [#/Vol]NOT REPORTEDper 100 WBCPromedica Defiance Regional Hospital Health- [place], KYWBC (Bld) [#/Vol] 10.0 10*3/[facility]- [place], KYWBC MorphologyNOT REPORTEDMercy Health- [place], [place] Otheron [id number] granulocytes (Bld) [#/Vol]NOT REPORTED0 %[facility]- [place], KYSedimentation Rateon [id number] Rate6 mm0 - 20 mmMercy Health- [place], KYProtein / creatinine ratio, urineon [id number], Ur101.2 mg/dL28 - 217 mg/dLMercy Health- [place], KYProtein (U) [Mass/Vol]8 mg/dLMercy Health- [place], [place] Comment on above:No normal range established.Urine Total Protein Creatinine Ratio0.08[facility]- [place], KYUrinalysison [id number] UrineNegative NEGATIVEMercy Health- [place], KYColor, UAYELLOWYELLOWMercy Health- [place], KYGlucose, Ur 100 mg/dLAbnormalNEGATIVEMercy Health- [place], KYInterpretation and review of laboratory resultsAbnormalMercy Health- [place], KYKetones Ql (U)NegativeNEGATIVE [facility]- [place], KYLeukocyte esterase Test strip Ql (U)NegativeNEGATIVEMercy Health- [place], KYNitrite, UrineNegativeNEGATIVEMercy Health- [place], KYpH, UA6.0[facility]- [place], KYProtein (U) [Mass/Vol]NegativeNEGATIVEMercy Health- [place], KYSpecific [place], UA1.020[facility]- [place], KYTurbidity UACLEARCLEARMercy Health- [place], [place] Urinalysis CommentsMercy Health- [place], KYUrine HgbNegativeNEGATIVEMercy Health- [place], KYUrobilinogen, UrineNormalNormalMercy Health- [place], KYComprehensive Metabolic Panelon [id number] [Mass/Vol]4.4 g/dL3.5 - 5.2 g/dLMercy Health- [place], [place] Albumin/Globulin [Mass ratio]NOT REPORTEDMercy Health- [place], KYALP [Catalytic activity/Vol]87 U/L35 - 104 U/LMercy Health- [place], KYALT [Catalytic activity/Vol] 21 U/L5 - 33 U/LMercy Health- [place], KYAnion gap [Moles/Vol]10 mmol/L9 - 17 mmol/L [facility]- [place], KYAST [Catalytic activity/Vol]22 U/L<32[facility]- [place], [place] Bilirubin Ql (U)0.32 mg/dL0.3 - 1.2 mg/dLUpper Valley Medical Center- [place], KYBun/Cre Ratio18 [facility], KYCalcium [Mass/Vol]10.1 mg/dL8.6 - 10.4 mg/dLSouthview Medical Center, KYChloride [Moles/Vol]104 mmol/L98 - 107 mmol/LMProMedica Toledo Hospital [place], KYCO2 [Moles/Vol]26 mmol/L20 - 31 mmol/LMMarion Hospital- [place], KYCreatinine [Mass/Vol]1.37 mg/dLHigh0.5 - 0.9 mg/dLSouthview Medical Center, KYGFR Jdpvrglx87 mL/minLow>60 [facility] [place], KYGFR Non- Pecnfnek08 mL/minLow>60[facility], [place] GFR/1.73 sq M predicted among non-blacks MDRD (S/P/Bld) [Vol rate/Area]NOT REPORTEDSouthview Medical Center, KYGFR/1.73 sq M predicted among non-blacks MDRD (S/P/Bld) [Vol rate/Area][facility], KYComment on above:Average GFR for 40-49 years old: 99 mL/min/1.73sq m Chronic Kidney Disease: <60 mL/min/1.73sq m Kidney failure: <15 mL/min/1.73sq m eGFR calculated using average adult body mass. Additional eGFR calculator available at: http://www.Solartrec.Localmint/multiple_crcl_2012.htm Glucose [Mass/Vol]160 mg/dOZpow78 - 99 mg/dLSouthview Medical Center, KYInterpretation and review of laboratory resultsAbnormalSouthview Medical Center, KYPotassium [Moles/Vol]4.6 mmol/L3.7 - 5.3 mmol/LMMarion Hospital- [place], KYProtein [Mass/Vol]7.4 g/dL6.4 - 8.3 g/dLSouthview Medical Center, KYSodium [Moles/Vol]140 mmol/L135 - 144 mmol/LMercy Health- [place], KYUrea nitrogen [Mass/Vol]24 mg/dLHigh6 - 20 mg/dLPorter, KYHemoglobin A1Con 25-61-5935Vgnptiq [Mass/Vol]123 mg/dLPorter, KYComment on above:The ADA and AACC recommend providing the estimated average glucose result to permit better patient understanding of their HBA1c result. HbA1c (Bld) [Mass fraction]5.9 %4 - 6 %[place], KYLDL Cholesterol, Directon 72-04-6610Nckbwnlymhh in LDL [Mass/Vol]58 mg/dL<100[place], [place] Lipid Panelon 02-88-6689Auioeixoynz [Mass/Vol]194 mg/dL<200[place] Comment on above: Cholesterol Guidelines: <200 Desirable 200-240 Borderline >240 Undesirable Cholesterol in HDL [Mass/Vol]27 mg/dLLow>40[place], KYComment on above: HDL Guidelines: <40 Undesirable 40-59 Borderline >59 Desirable Cholesterol in LDL [Mass/Vol]0 - 130 mg/dLPorter, KYComment on above: Calculation not valid for Triglyceride value greater than 400 mg/dL. Direct LDL reflexed LDL Guidelines: <100 Desirable 100-129 Near to/above Desirable 130-159 Borderline >159 Undesirable Direct (measured) LDL and calculated LDL are not interchangeable tests. Cholesterol in VLDL [Mass/Vol]NOT REPORTED1 - 30 mg/dLPorter, [place] Cholesterol.total/Cholesterol in HDL [Mass ratio]7.2 {ratio}High<5[place], KYInterpretation and review of laboratory resultsAbnormalP[place], KYTriglyceride [Mass/Vol]1112 mg/dLHigh<150[place], KYComment on above: Triglyceride Guidelines: <150 Desirable 150-199 Borderline 200-499 High >499 Very high Based on AHA Guidelines for fasting triglyceride, July 2012. Patient Fasting?on 80-97-4549Srlicye Fasting?YESP[place], KYVitamin D 25 Hydroxyon 37-33-3218Szo D, 25-Mfwcank91.2 ng/mL30 - 100 ng/mLP[place], KYComment on above: Reference Range: Vitamin D status Range Deficiency <20 ng/mL Mild Deficiency 20-30 ng/mL Sufficiency 30-100 ng/mL Toxicity >100 ng/mL C-Reactive Proteinon 60-02-9851LTF [Mass/Vol]6.2 mg/LHigh0 - 5 mg/REBIScan Mantis Deposition [place], KYInterpretation and review of laboratory resultsAbnormalSouthview Medical Center, KYHemoglobin G8BBprrvnf By: Janel Allen on 59-88-1577Tubxcyt [Mass/Vol] 108 mg/dLThe Christ HospitalCharitas Phone: comment on above:The ADA and AACC recommend providing the estimated average glucose result to permit better patient understanding of their HBA1c result. HbA1c (Bld) [Mass fraction]5.4 %4.8 - 5.9 %[employer] Phone: Homocysteine, SerumOrdered By: Janel Allen on 51-87-8601Gjgphrvjosjv5 umol/L<15.0[facility] Phone: TSH without ReflexOrdered By: Janel Allen on 53-93-1314UVR Qn1.03 m[IU]/[employer] Phone: Vitamin B12 & FolateOrdered By: Janel Dignaharinder on 23-80-1461Qkgqmfgre (Vitamin B12) [Mass/Vol]292 pg/mL232 - 1245 pg/mLThe [facility] HospitalCharitas Phone: Folate13.8 ng/mL>4.8[facility] Phone: XR CERVICAL SPINE (4-5 VIEWS)on [phone] degenerative changes cervical spine not unusual for age. Refer to the [facility] 02/03/2019 with some of the findings discussed above. [place], KYEXAM: XR CERVICAL SPINE (4-5 VIEWS) HISTORY: Reason for exam:->history MRSA discitis of thoracicregion. New tingling and numbness of fingers COMPARISON: MRI cervical spine [facility] 02/03/2019, cervical spine series 04/03/2010. The [...] is normal. Swimmer's lateral viewshows no additional abnormality.[facility], Dannielle, Rick Incoming Radiant Results From [facility] - 07/29/2019 10:05 AM EDT EXAM: XR CERVICAL SPINE (4-5 VIEWS) HISTORY: Reason for exam:->history MRSA discitis of thoracic region. New tingling and numbness of fingers COMPARISON: MRI cervical spine [facility] 02/03/2019, cervical spine series 04/03/2010. The [...] unusual for age. Refer to the [facility] 02/03/2019 with some of the findings discussed above. [facility], [facility]-Reactive ProteinOrdered By: Azalea Knight on 07-28-2019 CRP [Mass/Vol]6.4 mg/LHigh0 - 5 mg/LMMiami Valley Hospital, MTInterpretation and review of laboratory resultsAbnormSycamore Medical Center, MTCBC With Auto DifferentialOrdered By: Azalea Knight on 03-98-0584Ppfrizfw Eos #0.10[facility], KYAbsolute Immature GranulocyteNOT REPORTEDSouthview Medical Center, [place] Absolute Lymph #2.10[facility], KYAbsolute Garrett #0.50[facility], [place] Basophils (Bld) [#/Vol]0.00 10*3/uLMercy Health- [place], KYBasophils/100 WBC (Bld)1 %0 - 2 %[facility]- [place], KYDifferential TypeYESMercy Health- [place], [place] Eosinophils/100 WBC (Bld)1 %0 - 5 %[facility]- [place], KYErythrocyte distribution width (RBC) [Ratio]14.5 %12.1 - 15.2 %[facility]- [place], KYHematocrit (Bld) [Volume fraction]38.1 %36 - 46 %[facility]- [place], KYHemoglobin (Bld) [Mass/Vol] 12.9 g/dL12 - 16 g/dLPromedica Defiance Regional Hospital [facility]- [place], KYImmature GranulocytesNOT REPORTED0 % [facility]- [place], KYLymphocytes/100 WBC (Bld)34 %15 - 40 %[facility]- [place], [place] MCH (RBC) [Entitic mass]29.5 pg26 - 34 pgPromedica Defiance Regional Hospital [facility]- [place], KYMCHC (RBC) [Mass/Vol]33.9 g/dL31 - 37 g/dLPromedica Defiance Regional Hospital [facility]- [place], KYMCV (RBC) [Entitic vol]87.1 fL80 - 100 fLPromedica Defiance Regional Hospital [facility]- [place], KYMonocytes/100 WBC (Bld)8 %4 - 8 %[facility]- [place], KYMPVNOT REPORTED6 - 12 fLPromedica Defiance Regional Hospital [facility]- [place], KYNRBC AutomatedNOT REPORTEDper 100 WBCPromedica Defiance Regional Hospital [facility]- [place], KYPlatelet EstimateNOT REPORTEDPromedica Def[facility]- [place], [place] Platelets (Bld) [#/Vol]222 10*3/uLPromedica Defiance Regional Hospital [facility]- [place], KYRBC (Bld) [#/Vol]4.38 10*6/uL4 - 5.2 m/[facility]- [place], KYRBC morphology finding Nom (Bld)NOT REPORTEDPromedica Defiance [facility]- [place], KYSegmented neutrophils/100 WBC (Bld)56 %47 - 75 % [facility]- [place], KYSegs Absolute3.50[facility]- [place], KYWBC (Bld) [#/Vol]6.2 10*3/uLPromedica Defiance Regional Hospital [facility]- [place], KYWBC MorphologyNOT REPORTEDPromedica Def[facility]- [place], [place] Sedimentation RateOrdered By: Azalea Knight on 85-66-8571Nfn Rate19 mm0 - 30 mmSouthview Medical Center, KYC-Reactive Proteinon 56-18-6652GQS [Mass/Vol]7.3 mg/LHigh0 - 5 mg/LMMiami Valley Hospital, KYInterpretation and review of laboratory results AbnormalSouthview Medical Center, KYAlbuminon 56-90-2183Ffsquqj [Mass/Vol]4.3 g/dL3.5 - 5.2 g/dLSouthview Medical Center, KYBUN & Creatinineon 06-04-1252Edsifxowco [Mass/Vol] 1.27 mg/dLHigh0.5 - 0.9 mg/dLSouthview Medical Center, KYGFR Kngvscqk69 mL/min Low>60[facility], KYGFR Non- Sauwvcul15 mL/minLow>60[facility], KYGFR/1.73 sq M predicted among non-blacks MDRD (S/P/Bld) [Vol rate/Area]NOT REPORTEDSouthview Medical Center, KYGFR/1.73 sq M predicted among non-blacks MDRD (S/P/Bld) [Vol rate/Area][facility], KYComment on above:Average GFR for 40-49 years old: 99 mL/min/1.73sq m Chronic Kidney Disease: <60 mL/min/1.73sq m Kidney failure: <15 mL/min/1.73sq m eGFR calculated using average adult body mass. Additional eGFR calculator available at: http://www.Solartrec.Localmint/multiple_crcl_2012.htm Interpretation and review of laboratory resultsAbnormalSouthview Medical Center, KYUrea nitrogen [Mass/Vol]18 mg/dL6 - 20 mg/dLSouthview Medical Center, KYCalciumon 06-17-2019 Calcium [Mass/Vol]10.4 mg/dL8.6 - 10.4 mg/dLSouthview Medical Center, KYElectrolyte Panelon 82-84-5475Ynqpo gap [Moles/Vol]13 mmol/L9 - 17 mmol/LMMiami Valley Hospital, KYChloride [Moles/Vol]103 mmol/L98 - 107 mmol/LMProMedica Toledo [facility] [place], KYCO2 [Moles/Vol]24 mmol/L20 - 31 mmol/LMercy Health- [place], KYPotassium [Moles/Vol]3.8 mmol/L3.7 - 5.3 mmol/LMercy Health- [place], KYSodium [Moles/Vol]140 mmol/L135 - 144 mmol/LMercy Health- [place], KYHemoglobin and Hematocrit, Bloodon 06-17-2019 Hematocrit (Bld) [Volume fraction]35.4 %Low36 - 46 %[facility]- [place], [place] Hemoglobin (Bld) [Mass/Vol]12.1 g/dL12 - 16 g/dLMercy Health- [place], [place] Interpretation and review of laboratory resultsAbnormCone Health Health- [place], [place] Magnesiumon 47-34-3055Zgwhcjzkm [Mass/Vol]2.3 mg/dL1.6 - 2.6 mg/dLMercy Health- [place], KYMicroscopic Urinalysison 67-85-2558Ymdktsvhb, UANOT REPORTEDNoneMercy Health- [place], KYBacteria, UA1+AbnormalNoneMercy Health- [place], KYCasts UANOT REPORTED /LPFMercy Health- [place], KYCrystals UANOT REPORTEDNone /HPFMercy Health- [place], [place] Epithelial Cells UA2 TO 5/HPFMercy Health- [place], KYInterpretation and review of laboratory resultsAbnormCopper Springs East Hospitalcy Health- [place], KYMucus, UANOT REPORTEDNoneMercy Health- [place], KYOther Observations UANOT REPORTEDNOT REQ.[facility]- [place], KYRBC (U) [#/Vol]NOT REPORTEDMercy Health- [place], KYRenal Epithelial, UrineNOT REPORTED0 /HPFMercy Health- [place], KYTrichomonas, UANOT REPORTEDNoneMercy Health- [place], KYWBC, UA0 TO 20 /HPFMercy Health- [place], KYYeast, UANOT REPORTEDNoneMercy Health- [place], [place]- [facility]- [place], KYPhosphoruson 60-45-1831Iovlywqdn [Mass/Vol]3.0 mg/dL2.6 - 4.5 mg/dLMercy Health- [place], KYProtein / creatinine ratio, urineon 06-17-2019 Creatinine, Ur228.2 mg/zQYlsu47 - 217 mg/dLThe Christ Hospitalcy Health- [place], KYInterpretation and review of laboratory resultsAbnormalThe Christ Hospitalcy Health- [place], KYProtein (U) [Mass/Vol]18 mg/dLUpper [facility]- [place], KYComment on above:No normal range established.Urine Total Protein Creatinine Ratio0.08MerNorthwest [facility]- [place], [place] Sedimentation Rateon 85-58-0161Zsx Rate24 mm0 - 30 mmMerNorthwest Hospital- [place], [place] Urinalysison 45-32-7766Dwbfhlign UrineNegativeNEGATIVEMer Health- [place], KYColor, UAYELLOWYELLOWMer Health- [place], KYGlucose, UrNegativeNEGATIVEMer Health- [place], KYInterpretation and review of laboratory resultsAbnormalPromedica [facility]- [place], [place] Ketones Ql (U)NegativeNEGATIVEMer Health- [place], KYLeukocyte esterase Test strip Ql (U)NegativeNEGATIVEMercy Health- [place], KYNitrite, UrineNegativeNEGATIVEMer Health- [place], KYpH, UA6.0MerNorthwest Hospital- [place], KYProtein (U) [Mass/Vol]TRACEAbnormal NEGATIVEPromedica Defiance [facility]- [place], KYSpecific [place], UA1.025MerNorthwest Hospital- [place], [place] Turbidity UAHAZYAbnormalCLEARMercy Health- [place], KYUrinalysis CommentsMerNorthwest Hospital- [place], KYUrine HgbNegativeNEGATIVEMer Health- [place], KYUrobilinogen, Urine NormalNormalUpper Valley Medical Center- [place], KYMR CERVICAL SPINE WITHOUT CONTRASTon 02-03-2019 [...] or cord edema. /cdr Workstation ID: [id number] [facility] HospitalEXAMINATION: MR CERVICAL SPINE WITHOUT CONTRAST HISTORY: [...] creating probable mild left-sided neural foraminal stenosis. [facility] HospitalInterface, Rad In [facility] - 02/03/2019 11:02 AM EDT [...] due to myelomalacia or cord edema. /[facility] Workstation ID: [id number] CERVICAL SPINE WITHOUT [...] due to myelomalacia or cord edema. /[facility] Workstation ID: [id number] Dictated by: RONALD MCCRAY on ThuFebruary 03, 2019 10:34:16 AM EDT Transcribed by: FELICITY DE JESUS on ThuFebruary 03, 2019 10:58:51 AM EDT Finalized by: RONALD MCCRAY on ThuFebruary 03, 2019 10:59:35 AM EDTCleveland Clinic Hillcrest HospitalComment on above:Order Comment: Reason for exam?:neck pain Injury/Trauma or Illness?:Illness/Other How long have you had these symptoms (acute/chronic)?:Chronic Type of Exam?:Initial Additional signs and symptoms?:neck pain, chronic hx of multiple old injuries Cult,Alana 26-88-6737Mvgs,MycobacteriaSpecimen Description .TISSUE EPIDURAL TISSUE Special Requests NOT REPORTED Direct Exam NO ACID FAST BACILLI SEEN (DIRECT SMEAR) Culture NO GROWTH 48 DAYS Report Status FINAL 10/11/2018[facility] HospitalComment on above:Performed By: #### TROPI #### [facility] [facility] [address] [place] [id number] Cult,MycobacteriaSpecimen Description .SPINE .TISSUE T4 LAMINA Special Requests NOT REPORTED Direct Exam NO ACID FAST BACILLI SEEN (DIRECT SMEAR) Culture NO GROWTH 48 DAYS Report Status FINAL 10/11/2018[facility] HospitalComment on above:Performed By: #### LEATHAB #### [facility] [address] [place] [address] Cult,Funguson 44-90-1767Rayx,FungusSpecimen Description .TISSUE EPIDURAL TISSUE Special Requests NOT REPORTED Culture NO GROWTH 34 DAYS Report Status FINAL 09/27/2018[facility] HospitalComment on above:Performed By: #### TERRYWB #### [facility] [address] [place] [address] Cult,FungusSpecimen Description .SPINE .TISSUE T4 LAMINA Special Requests NOT REPORTED Culture NO GROWTH 34 DAYS Report Status FINAL 09/27/2018[facility] HospitalComment on above:Performed By: #### LEATHAB #### [facility] [address] [place], [place] [id number] BUNon 94-90-1774Epcz nitrogen mass conc20 mg/dL22 Sanchez StreetComment on above:Performed By: #### [id number] ####OVIDIO [address] [place], [place] [address]Koanfbcezrmh 28-03-7077Jjdyftgjkq mass conc1.3 mg/dLHigh0.5-1.1SCrossridge Community HospitalComment on above: Performed By: #### [id number] ####OVIDIO [address] [place] [address] eGFRon 45-70-7232xVXH AA54 mL/min/1.73 k8RfnxsyKvhukluzbMedical Center of [facility] Comment on above:Order Comment: Order added by Discern Expert.Performed By: #### [id number] ####OVIDIO [address]zh[address] [place], [place] [address]BBE/1.73 sq M predicted among non-blacks MDRD vol rate/area (S/P/Bld)45 mL/min/1.73 t0JpzhpjDeWitt HospitalComment on above:Order Comment: Order added by Discern Expert.Performed By: #### [id number] ####OVIDIO Jrkjogxh[address] [place], [place] [address]Paee Diffon 84-53-1287Ykyxetuqo Auto #/vol (Bld)0.0 E3/mcLNormal0.0-0.2SMultiCare Good Samaritan Hospital SystemComment on above:Order Comment: Order Added by Discern Expert.Performed By: #### [id number] ####OVIDIO [address] [place], [place] [address]Wbeippgye/100 WBC Auto (Bld)1.1 % Normal0.0-2.0[facility] SystemComment on above:Order Comment: Order Added by Discern Expert.Performed By: #### [id number] ####OVIDIO AvalosRduY[address] [place], [place] [address]Jql Absolute0.0 E3/mcLNormal0.0-0.7[facility] SystemComment on above:Order Comment: Order Added by Discern Expert.Performed By: #### [id number] ####OVIDIO UbfBsqz[address] [place], [place] [address]Khsctviqirx/100 WBC Auto (Bld)0.3 %Normal0.0-11.0[facility] SystemComment on above:Order Comment: Order Added by Discern Expert.Performed By: #### [id number] ####OVIDIO [address]osPmwJsku[address] [place], [place] [address]Iqbxfthpwhk Auto #/vol (Bld)1.2 E3/mcLNormal1.2-3.4SMultiCare Good Samaritan Hospital SystemComment on above:Order Comment: Order Added by Discern Expert.Performed By: #### [id number] ####OVIDIO AvalosMcvMvna[address] [place], [place] [address]Tyruxwskwoe/100 WBC Auto (Bld)30.6 %Bdcyvl53.0-55.0[facility] SystemComment on above:Order Comment: Order Added by Discern Expert.Performed By: #### [id number] ####OVIDIO A[address]osRioKsiz[address] [place], [place] [address]Ntaq Absolute0.4 E3/mcLNormal0.0-0.7 [facility] SystemComment on above:Order Comment: Order Added by Discern Expert.Performed By: #### [id number] ####OVIDIO [address] [place], [place] [address]Ziqoxiaop/100 WBC Auto (Bld)10.2 %High0.0-10.0[facility] HospitalComment on above:Order Comment: Order Added by Discern Expert.Performed By: #### [id number] ####OVIDIO [address] [place], [place] [address]Xwzrau Absolute2.3 E3/mcLNormal1.4-6.5SCrossridge Community Hospital Comment on above:Order Comment: Order Added by Discern Expert.Performed By: #### [id number] ####OVIDIO [address] [place], [place] [address]Xpvzrx Auto57.8 % Exbuyn88.0-75.0[facility] HospitalComment on above:Order Comment: Order Added by Discern Expert.Performed By: #### [id number] ####OVIDIO [address] [place], [place] [address]LKW w/ Auto Diffon 30-95-2551Dwktvoqjunc distribution width Auto Ratio (RBC)19.9 %High11.5-14.5SCrossridge Community HospitalComment on above:Performed By: #### [id number] ####OVIDIO [address] [place], [place] [address]Bfpbsvhteh Auto Volume Fraction (Bld)26.5 %Low36.0-48.0 [facility] HospitalComment on above:Performed By: #### [id number] ####OVIDIO [address] [place], [place] [address]Izldfhrwzp mass conc (Bld)8.7 g/dLLow12.0-16.0[facility] HospitalComment on above:Performed By: #### [id number] ####OVIDIO [address]osBsyLkzr[address] [place], [place] [address]YVB Auto Entitic mass (RBC)29.6 koGhscir96.0-31.0[facility] HospitalComment on above:Performed By: #### [id number] ####OVIDIO [address] [place], [place] [address]OKUG Auto mass conc (RBC)32.9 g/dLLow33.0-37.0[facility] Health SystemComment on above:Performed By: #### [id number] ####OVIDIO [address] [place] [address]MCV Auto Entitic volume (RBC)89.8 bRMwnukb37.0-100.0 [facility] HospitalComment on above:Performed By: #### [id number] ####OVIDIO [address] [place], [place] [address]Platelet mean volume Auto Entitic volume (Bld)10.5 fLNormal7.4-11.0[facility] SystemComment on above:Performed By: #### [id number] ####OVIDIO [address] [place], [place] [address]Platelets Auto #/vol (Bld)117 E3/ozYQkf924-817IlxieklzdSaline Memorial HospitalComment on above:Performed By: #### [id number] ####OVIDIO [address] [place], [place] [address]RBC Auto #/vol (Bld)2.95 E6/mcLLow3.90-5.40SMultiCare Good Samaritan Hospital SystemComment on above:Performed By: #### [id number] ####OVIDIO [address] [place], [place] [address]WBC Auto #/vol (Bld)4.0 E3/mcLNormal 3.6-11.0[facility] HospitalComment on above:Performed By: #### [id number] ####OVIDIO [address] [place], [place] [address]CRPon 36-88-3148UQM mass conc0.83 mg/dLNormal0.00-1.00[facility] SystemComment on above:Performed By: #### [id number] ####OVIDIO [address]osHuxMnyr[address] [place], [place] [address]Morphon 47-09-6303Logtpudxcuqm Auto Ql (Bld)1+NormalSaline Memorial HospitalComment on above:Order Comment: Order Added by Discern Expert. Performed By: #### [id number] ####OVIDIO [address] [place] [address] Hypochromasia1+[facility] Psychiatric HospitalComment on above:Order Comment: Order Added by Discern Expert.Performed By: #### [id number] ####OVIDIO [address]osMhyQtxu[address] [place], [place] [address]CZL morphology finding Nom (Bld)SEE MORPHOLOGYArkansas State Psychiatric HospitalComment on above:Order Comment: Order Added by Discern Expert.Performed By: #### [id number] ####OVIDIO [address]valosYooLqob[address] [place], [place] [address]Cdi Rate Automatedon 18-59-7890Fql Rate Automated 15 mm/hrArkansas State Psychiatric HospitalComment on above:Result Comment: AGE-SPECIFIC REFERENCE RANGES FOR SEDIMENTATION RATE AUTOMATED REFERENCE RANGE - MM/HR AGE MEN WOMEN 0-2 0-2 - PUBERTY 3-13 3-13 PUBERTY - 50 YRS 0-15 0-20 > 50 YRS0-20 0-30Performed By: #### [id number] ####OVIDIO Hematology Manual [address]xq[address]oxhvq[address] [place], [place] [address]zcbhk morphon 09-20-2018 Platelet morphology finding Nom (Bld)[facility] CenterComment on above:Performed By: #### [id number] ####OVIDIO [address]valosZjhHwhm[address] [place], [place] [address]Xtekytwlw Auto #/vol (Bld)[facility] Medical CenterComment on above:Performed By: #### [id number] ####OVIDIO [address]gpPh[address] [place], [place] [address]WXOZK UREA NITROGENon 52-98-2010Dthp nitrogen mass conc (Bld)19 mg/dLNormal7-20[facility] For RehabilitationComment on above:Performed By: #### ACBC, ESR, BUN, CREAT, CREACT, FX ####Testing performed at [address] [address]C REACTIVE PROTEINon 80-61-1078UWK mass conc18.5 mg/LHigh0-10.0[facility] For RehabilitationComment on above:Performed By: #### ACBC, ESR, BUN, CREAT, CREACT, FX ####Testing performed at [address] [address]EJCyv 09-13-2018 ABSOLUTE BAS0.1 S49FtinyzKfymvInscription House Health Center on above:Performed By: #### ACBC, ESR, BUN, CREAT, CREACT, FX ####Testing performed at [place] [id number] EOS0.20 K92IfrednCudjbInscription House Health Center on above:Performed By: #### ACBC, ESR, BUN, CREAT, CREACT, FX ####Testing performed at [place] [id number] NEUTROPHIL COUNT2.5 u23Ozidtq9.0-7.0[place] on above:Performed By: #### ACBC, ESR, BUN, CREAT, CREACT, FX ####Testing performed at [place] [id number]/100 WBC Auto (Bld)1.4 %Normal0.0-2.0[place] on above:Performed By: #### ACBC, ESR, BUN, CREAT, CREACT, FX ####Testing performed at [place] [address]6DTYPEAUTO DIFFGallup Indian Medical Center on above:Performed By: #### ACBC, ESR, BUN, CREAT, CREACT, FX ####Testing performed at [place] [address]Eosinophils/100 WBC Auto (Bld)3.5 %Normal0.0-11.0 [place] on above:Performed By: #### ACBC, ESR, BUN, CREAT, CREACT, FX ####Testing performed at [place] [address]Lymphocytes Auto #/vol (Bld)1.10 C57ThofdgIzvdcGallup Indian Medical Center on above:Performed By: #### ACBC, ESR, BUN, CREAT, CREACT, FX ####Testing performed at [place] [address]Lymphocytes/100 WBC Auto (Bld)27.0 %Ovcvxk72.0-55.0[facility] on above:Performed By: #### ACBC, ESR, BUN, CREAT, CREACT, FX ####Testing performed at [address] [address]Skgczaqhj Auto #/vol (Bld)0.4 Y83BjcokcKpproSt. Joseph's Regional Medical CenterComment on above:Performed By: #### ACBC, ESR, BUN, CREAT, CREACT, FX ####Testing performed at [address] [address]Miqlretqw/100 WBC Auto (Bld)9.4 %Normal0.0-10.0[place] on above:Performed By: #### ACBC, ESR, BUN, CREAT, CREACT, FX ####Testing performed at [place] [id number]/100 WBC Auto (Bld) 58.7 %Atzdob84.0-75.0[facility] Hospitalment on above:Performed By: #### ACBC, ESR, BUN, CREAT, CREACT, FX ####Testing performed at [place] [address]Erythrocyte distribution width Auto Ratio (RBC)17.6 %High11.5-14.5ASelect Medical Specialty [facility] [place] on above:Performed By: #### ACBC, ESR, BUN, CREAT, CREACT, FX ####Testing performed at [place] [address]Hematocrit Auto Volume Fraction (Bld)26.2 %Low36.0-48.0[place] on above:Performed By: #### ACBC, ESR, BUN, CREAT, CREACT, FX ####Testing performed at [place] [address]Hemoglobin mass conc (Bld)8.8 g/dLLow12.0-16.0[place] on above:Performed By: #### ACBC, ESR, BUN, CREAT, CREACT, FX ####Testing performed at [place] [address]MCH Auto Entitic mass (RBC)29.3 ukHberdr18.0-35.0 [place] on above:Performed By: #### ACBC, ESR, BUN, CREAT, CREACT, FX ####Testing performed at [place] [address]MCHC Auto mass conc (RBC)33.7 g/zIUvlpcp59.0-37.0[place] on above:Performed By: #### ACBC, ESR, BUN, CREAT, CREACT, FX ####Testing performed at [place] [address]MCV Auto Entitic volume (RBC)86.9 wLIcisnm33.0-100.0[place] on above:Performed By: #### ACBC, ESR, BUN, CREAT, CREACT, FX ####Testing performed at [place] [address]Platelet mean volume Auto Entitic volume (Bld)10.1 fLNormal 7.4-11.0[place] on above:Performed By: #### ACBC, ESR, BUN, CREAT, CREACT, FX ####Testing performed at [place] [address]Platelets Auto #/vol (Bld)130 /cmmNormal 130.0-400.0[place] on above:Performed By: #### ACBC, ESR, BUN, CREAT, CREACT, FX ####Testing performed at [place] [address]RBC Auto #/vol (Bld)3.01 /cmmLow4.0-5.4ASelect Medical [facility]ty [facility] [place] on above:Performed By: #### ACBC, ESR, BUN, CREAT, CREACT, FX ####Testing performed at [place] [address]WBC Auto #/vol (Bld)4.2 /cmmNormal3.6-11.0[place] on above:Performed By: #### ACBC, ESR, BUN, CREAT, CREACT, FX ####Testing performed at [place] [address]6CREATININE,SERUMon 41-11-2965Ysoweffnko mass conc1.5 mg/dLHigh0.52-1.04 [place] on above:Performed By: #### ACBC, ESR, BUN, CREAT, CREACT, FX ####Testing performed at [place] [address]EST. GFR, Uuhceqxj17 ml/min/1.73sq.[facility] on above:Performed By: #### ACBC, ESR, BUN, CREAT, CREACT, FX ####Testing performed at [place] [address]EST. GFR,Non Dopnaawf10 ml/min/1.73sq.[facility] on above:Performed By: #### ACBC, ESR, BUN, CREAT, CREACT, FX ####Testing performed at [place] [id number]/1.73 sq M predicted among non-blacks MDRD vol rate/area (S/P/Bld)Average GFR for 30-39 years old = 109.[facility] Comment on above:Result Comment: Chronic Kidney disease, GFR = <60.Kidney failure, GFR = <15.The GFR estimate is not adjusted for extreme body surface area or acute process, nor has it been validated for women or ethnic groups other than and .Performed By: #### ACBC, ESR, BUN, CREAT, CREACT, FX ####Testing performed at [address] [address]YPEop 91-11-5709NSS Velocity (Bld)49 mm/hHigh0-15 [place] on above:Performed By: #### ACBC, ESR, BUN, CREAT, CREACT, FX ####Testing performed at [address] [address]GTI REQUESTon [id number] TOFAX TO DR HARTMAN AT [phone] AND TO [facility] AT [phone] Regional Medical CenterComment on above:Performed By: #### PHY, BUN, CREAT, FX ####Testing performed at [address] [address]STR REQUEST on [id number] [id number] City HospitalComhuron [facility] on above: Performed By: #### FX ####Testing performed at [place] [id number] UREA NITROGENon 45-28-9557Litc nitrogen mass conc (Bld)21 mg/dLHigh7-20[facility] RehabilitationComment on above:Performed By: #### PHY, BUN, CREAT, FX ####Testing performed at [place] [id number],SERUMon 56-77-4164Wkatkidtur mass conc 1.4 mg/dLHigh0.52-1.04[facility] For RehabilitationComment on above:Performed By: #### PHY, BUN, CREAT, FX ####Testing performed at [address] [address]GMI. GFR, Xmwxnijw65 ml/min/1.73sq.[facility]Com[facility] on above:Performed By: #### PHY, BUN, CREAT, FX ####Testing performed at [address] [address]AEN. GFR,Non Smhxbfrr35 ml/min/1.73sq.[facility] Comment on above:Performed By: #### PHY, BUN, CREAT, FX ####Testing performed at [address] [address]NZY/1.73 sq M predicted among non-blacks MDRD vol rate/area (S/P/Bld)Average GFR for 30-39 years old = 109.[facility] on above:Result Comment: Chronic Kidney disease, GFR = <60.Kidney failure, GFR = <15.The GFR estimate is not adjusted for extreme body surface area or acute process, nor has it been validated for women or ethnic groups other than and . Performed By: #### PHY, BUN, CREAT, FX ####Testing performed at [address] [address]DGS REQUESTon [id number] TO [phone] [facility] HospitalComment on above:Performed By: #### PHY, BUN, CREAT, FX ####Testing performed at [address] [address]LTI NEW PHYSICIANon 24-62-8113VKR NEW PHYSICIAN DEVAN UPBarre City HospitalComment on above:Performed By: #### PHY, BUN, CREAT, FX ####Testing performed at [address] [address]MXTeh 61-98-4130Bchh nitrogen mass conc24 mg/dLHigh6- [facility] HospitalComment on above:Performed By: #### [id number] ####OVIDIO K[address]zk[address] [place], [place] [address]Uljjpupfocwz 08-27-2018 Creatinine mass conc1.6 mg/dLHigh0.5-1.1SCrossridge Community HospitalComment on above:Performed By: #### [id number] ####OVIDIO Lsclbeds[address]60 [place], [place] [address]cUEHhj 22-48-8251dVTX AA43 mL/min/1.73 b3JlxfkiWiikpisxzArkansas State Psychiatric HospitalComment on above:Order Comment: Order added by Discern Expert.Performed By: #### [id number] ####OVIDIO [address]os[address]evDcge[address] [place], [place] [address]LIN/1.73 sq M predicted among non-blacks MDRD vol rate/area (S/P/Bld)36 mL/min/1.73 m2 [facility]iatric HospitalComment on above:Order Comment: Order added by Discern Expert.Performed By: #### [id number] ####OVIDIO [address]jPqgv[address] [place], [place] [address]Kqea,Tissueon [id number],TissueSpecimen Description .TISSUE EPIDURAL TISSUE Special Requests NOT [...] NOT REPORTED Trimethoprim/Sulfa <=10 SUSCEPTIBLE Vancomycin <=0.5 SUSCEPTIBLEOhioHealth Shelby HospitalComment on above:Performed By: #### LACWB #### [employer] [address] [place] [address] 43608 Cult,TissueSpecimen Description .SPINE .TISSUE T4 LAMINA [...] NOT REPORTED Trimethoprim/Sulfa <=10 SUSCEPTIBLE Vancomycin <=0.5 SUSCEPTIBLEOhioHealth Shelby HospitalComment on above:Performed By: #### LACWB #### [employer] [address] [place] [address] 43608 Basic Metabolic Profon 08-25-2018(cont.)[facility] Shelby HospitalComment on above:Result Comment: Average GFR for 30-39 years old: 107 mL/min/1.73sq m Chronic Kidney Disease: <60 mL/min/1.73sq m Kidney failure: <15 mL/min/1.73sq m eGFR calculated using average adult body mass. Additional eGFR calculator available at: http://www.Solartrec.com/multiple_crcl_2012.htmPerformed By: #### TERRYWB #### [facility] CenterFast[facility] [address] [place] [address] 757[address] Anion gap molar conc14 mmol/LNormal9-17[facility] CenterComment on above:Performed By: #### LACWB #### [facility] [address] [place] [address] 80203 Calcium mass conc9.1 mg/dLNormal8.6-10.4[facility] CenterComment on above:Performed By: #### LACWB #### [facility] [address] [place] [address] 04181 Chloride molar conc96 mmol/UNob78-882IazrqUniversity Hospitals Parma Medical CenterComment on above:Performed By: #### LACWB #### [facility] [address] [place] [address] 19547 CO2 molar conc23 mmol/UKkhjig46-85WyzimUniversity Hospitals Parma Medical Center Comment on above:Performed By: #### LACWB #### [facility] [address] [place] [address] 18303 Creatinine mass conc1.52 mg/dLHigh0.50-0.90[facility] CenterComment on above:Performed By: #### LACWB #### [facility] CenterFast[facility] [address] [place] [address] 44604 GFR, Amer46 mL/minLow>60[facility] Comment on above:Performed By: #### LACWB #### [facility] [address] [place] [address] 19025 GFR,non Amer38 mL/minLow>60[facility] Comment on above:Performed By: #### LACWB #### [facility] [address] [place] [address] 49876 Glucose mass conc95 mg/tYNqersg21-82ZhpzoPromise Hospital of East Los AngelesComment on above:Performed By: #### LEATHAB #### [facility] [address] [place] [address] 40431 Potassium molar conc4.5 mmol/LNormal3.7-5.3MPromise Hospital of East Los AngelesComment on above:Performed By: #### LEATHAB #### [facility] [address] [place] [address] 50303 Sodium molar udcs374 mmol/YGqr944-678ImwcvUniversity Hospitals Parma Medical CenterComment on above:Performed By: #### LACHELLE #### [facility] [address] [place] [address] 48996 Urea nitrogen mass conc43 mg/dLHigh6-20[facility] CenterComment on above:Performed By: #### LACHELLE #### [facility] [address] [place] [address] 95913 BUN/CRE RatioNOT REPORTEDCitizens Memorial Healthcareal9-20[facility] Comment on above:Performed By: #### LEATHAB #### [facility] [address] [place] [address] 79910 Staging:NOT REPORTEDNormalUniversity Hospitals Parma Medical CenterComment on above:Performed By: #### LACHELLE #### [facility] [address] [place] [address] 38794 CBC with Diffon [id number]. Basophil0.07 k/uLNormal0.00-0.20 [facility] CenterComment on above:Performed By: #### LEATHAB #### [facility] [address] [place] [address] 81642 Abs.Imm.Granulocyte0.08 k/uLNormal0.00-0.30[facility] CenterComment on above:Performed By: #### LACWB #### [address] [address] Abs.Neutrophil (Seg)5.77 k/uLNormal1.50-8.10[facility] CenterComment on above:Performed By: #### LACWB #### [address] [address] Basophils/100 WBC (Bld)1 %Normal0-2[facility]ercNatividad Medical Center Comment on above:Performed By: #### TERRYWB #### [address] [address] Eosinophils #/vol (Bld)0.12 10*3/uLNormal0.00-0.44[facility] CenterComment on above:Performed By: #### TERRYWB #### [address] 7[address] Eosinophils/100 WBC (Bld)1 %Normal1-4[facility] CenterComment on above:Performed By: #### TERRYWB #### [address] [address] Immature granulocytes #/vol (Bld)1 %Yoyb0BliteDowney Regional Medical CenterComment on above:Performed By: #### LACWB #### [address] [address] Lymphocytes #/vol (Bld)1.83 10*3/uLNormal1.10-3.70[facility] CenterComment on above:Performed By: #### LACWB #### [address] 9[address] Lymphocytes/100 WBC (Bld)21 %Urg29-53TdrlpUniversity Hospitals Parma Medical CenterComment on above:Performed By: #### LACWB #### [facility] CenterFast[facility] [address] [place] [address] 08310 Monocytes #/vol (Bld)0.92 10*3/uLNormal0.10-1.20[facility] CenterComment on above:Performed By: #### LACWB #### [facility] [address] [place] [address] 51276 Monocytes/100 WBC (Bld)11 %Normal3-12[facility] CenterComment on above:Performed By: #### LACWB #### [facility] [address] [place] [address] 69933 Neutrophil (Seg)66 %Fcyn08-51TnhpeUniversity Hospitals Parma Medical Center Comment on above:Performed By: #### LACWB #### [facility] [address] [place] [address] 09635 Erythrocyte distribution width Ratio (RBC)14.6 %High11.8-14.4[facility] CenterComment on above:Performed By: #### LACWB #### [facility] [address] [place] [address] 92507 Hematocrit Volume Fraction (Bld)32.6 %Low36.3-47.1MPromise Hospital of East Los AngelesComment on above:Performed By: #### LACWB #### [facility] [address] [place] [address] 03595 Hemoglobin mass conc (Bld)10.0 g/dLLow11.9-15.1MPromise Hospital of East Los AngelesComment on above:Performed By: #### LACWB #### [facility] [address] [place] [address] 33074 MCH Entitic mass (RBC)28.2 dpQakiov88.2-33.5[facility] CenterComment on above:Performed By: #### LACWB #### [employer] [address] [place] [address] 81856 MCHC mass conc (RBC)30.7 g/wSYphcwa86.4-34.8[facility] CenterComment on above:Performed By: #### LACWB #### [facility] [address] [place] [address] 50911 MCV Entitic volume (RBC)91.8 rLKrmain58.6-102.9[facility] CenterComment on above:Performed By: #### LACWB #### [facility] [address] [place] [address] 92584 NRBC Automated0.0 per 100 WBCNormal0.0[facility] Medical CenterComment on above:Performed By: #### LACWB #### [facility] [address] [place] [address] 98006 Platelet mean volume Entitic volume (Bld)10.4 fLNormal8.1-13.5[facility] CenterComment on above:Performed By: #### LACWB #### [facility] [address] [place] [address] 95816 Platelets #/vol (Bld)292 10*3/eKJrmnln831-045ZvpidUniversity Hospitals Parma Medical CenterComment on above:Performed By: #### LACWB #### [facility] [address] [place] [address] 11055 RBC #/vol (Bld)3.55 10*6/uLLow3.95-5.11[facility] CenterComment on above:Performed By: #### LACWB #### [facility] [address] [place] [address] 86545 RBC morphology finding Nom (Bld)ANISOCYTOSIS PRESENTNormalUniversity Hospitals Parma Medical CenterComment on above:Performed By: #### LACWB #### [address] [address] WBC #/vol (Bld)8.8 10*3/uLNormal3.5-11.3[facility] HospitalComment on above:Performed By: #### LACWB #### [address] [address]382 Auto Diff PerformedNOT REPORTEDOhioHealth Shelby HospitalComment on above:Performed By: #### LACWB #### [address] [address]33 Platelets #/vol (Bld)NOT REPORTEDOhioHealth Shelby HospitalComment on above:Performed By: #### LACWB #### [address] [address]58 WBC MorphologyNOT REPORTEDOhioHealth Shelby Hospital Comment on above:Performed By: #### LACWB #### [address] [address] Fungi,Direct Examon [id number],Direct ExamSpecimen Description .SPINE .TISSUE T4 LAMINA Special Requests NOT REPORTED Direct Exam NO FUNGAL ELEMENTS SEEN Report Status FINAL 08/25/2018[facility] Shelby HospitalComment on above:Performed By: #### LACWB #### [address] [address] Magnesiumon 18-32-9016Aagpdcogp mass conc2.4 mg/dLNormal1.6-2.6 [facility] CenterComment on above:Performed By: #### LACWB #### [address] [address] Procalcitoninon 83-45-2583Oqiapom mass conc0.13 ng/mLHigh<0.09[facility] Medical CenterComment on above:Result Comment: Suspected Sepsis: [...] entered into the Change in Procalcitonin Calculator (www.wosvjb-abx-euyjcxkxak.Localmint) to determine the patient's Mortality Risk PrognosisPerformed By: #### LACWB #### [employer] [address] [place] [address] 1038808 Cult,Aerobe/Anaerobeon 86-62-4526Egpl,Aerobe/AnaerobeSpecimen Description .SPINE Special Requests NOT REPORTED Direct Exam DUPLICATE ORDER SEE RESULTS FOR TISSUE CULTURE Culture NOT REPORTED Report Status FINAL 08/24/2018[facility] Shelby HospitalComment on above:Performed By: #### SPAG #### [employer] [address] [place] [address] [phone] Cult,Aerobe/AnaerobeSpecimen Description .SPINE Special Requests NOT REPORTED Direct Exam DUPLICATE ORDER SEE RESUULTS FOR TISSUE CULTURE Culture NOT REPORTED Report Status FINAL 08/24/2018[facility] Shelby HospitalComment on above:Performed By: #### SPAG #### [employer] [address] [place] [address] 32957 FLUORO FOR SURGICAL PROCEDURESon [id number] FOR SURGICAL PROCEDURESRadiology exam is complete. No Radiologist dictation. Please follow up with ordering provider. Final resultNoDiley Ridge Medical CenterOPERATIVE REPORTon 08-24-2018 [facility] [address] [place] [address] OPERATIVE REPORT PATIENT NAME: CELINA GASPAR : 1980 [facility] REC NO: [id number] ROOM: 0431 ACCOUNT NO: [id number] ADMIT DATE: 08/15/2018 PROVIDER: Lita Mccray MD DATE OF PROCEDURE: 08/23/2018 SURGEON: Lita Mccray MD FELTMAKER AND WEIGHER: Eliel Larios DO PREOPERATIVE DIAGNOSIS: Epidural abscess, [...] satisfactory condition. LITA MCCRAY MD CAT/V_SSNCK_I Doc#: [id number] CC: Lita Mccray MDNoalUniversity Hospitals Parma Medical CenterProcalcitoninon 67-16-4789Fzmzfhf mass conc0.16 ng/mLHigh<0.09[facility] Comment on above:Result Comment: Suspected [...] entered into the Change in Procalcitonin Calculator (www.rhiani-xvn-wywbicfrdj.Localmint) to determine the patient's Mortality Risk PrognosisPerformed By: #### DIEGO #### [facility] [address] [place] [address] 36311 Basic Metab w/rfx MGon 08-23-2018(cont.)NormalUniversity Hospitals Parma Medical CenterComment on above:Result Comment: Average GFR for 30-39 years old: 107 mL/min/1.73sq m Chronic Kidney Disease: <60 mL/min/1.73sq m Kidney failure: <15 mL/min/1.73sq m eGFR calculated using average adult body mass. Additional eGFR calculator available at: http://www.Solartrec.Localmint/multiple_crcl_2012.htmPerformed By: #### DIEGO #### [facility] [address] [place] [address] 95408 Anion gap molar conc14 mmol/LNormal9-17[facility] CenterComment on above:Performed By: #### DIEGO #### [facility] [address] [place] [address] 26847 Calcium mass conc9.9 mg/dLNormal8.6-10.4[facility] CenterComment on above:Performed By: #### JANNETHG #### [facility] [address] [place] [address] 90197 Chloride molar conc99 mmol/XFzogiw34-799DcfjtUniversity Hospitals Parma Medical CenterComment on above:Performed By: #### JANNETHG #### [facility] [address] [place] [address] 25394 CO2 molar conc26 mmol/KSsbkgk84-78FyzgyUniversity Hospitals Parma Medical Center Comment on above:Performed By: #### DIEGO #### [employer] [address] [place] [address] 38029 Creatinine mass conc1.42 mg/dLHigh0.50-0.90[facility] CenterComment on above:Performed By: #### SPAG #### [employer] [address] [place] [address] 06884 GFR, Amer50 mL/minLow>60[facility] Comment on above:Performed By: #### SPAG #### [employer] [address] [place] [address] 52656 GFR,non Amer41 mL/minLow>60[facility] Comment on above:Performed By: #### SPAG #### [facility] [address] [place] [address] 90788 Glucose mass conc95 mg/sGGznrzn93-06MhyxoPromise Hospital of East Los AngelesComment on above:Performed By: #### JANNETHG #### [employer] [address] [place] [address] 78117 Potassium molar conc4.9 mmol/LNormal3.7-5.3MPromise Hospital of East Los AngelesComment on above:Result Comment: SPECIMEN SLIGHTLY HEMOLYZED, RESULTS MAY BE ADVERSELY AFFECTED.Performed By: #### SPAG #### [employer] [address] [place] [address] 86704 Sodium molar qgso993 mmol/KUrcxxx579-396MuyxaUniversity Hospitals Parma Medical CenterComment on above:Performed By: #### SPAG #### [employer] [address] [place] [address] 33544 Urea nitrogen mass conc31 mg/dLHigh6-20[facility] CenterComment on above:Performed By: #### SPAG #### [employer] [address] [place] [address] 86775 BUN/CRE RatioNOT REPORTEDNormal9-20[facility] Comment on above:Performed By: #### SPAG #### [address] [address] Staging:NOT REPORTEDNormalUniversity Hospitals Parma Medical CenterComment on above:Performed By: #### DIEGO #### [address] [address] CBC with Diffon 12-31-8744Rbk. Basophil0.06 k/uLNormal0.00-0.20 [facility] CenterComment on above:Performed By: #### DIEGO #### [address] [address] Abs.Imm.Granulocyte0.22 k/uLNormal0.00-0.30[facility] Medical CenterComment on above:Performed By: #### DIEGO #### [address] [address] Abs.Neutrophil (Seg)4.43 k/uLNormal1.50-8.10[facility] Medical CenterComment on above:Performed By: #### DIEGO #### [address] [address]89 Basophils/100 WBC (Bld)1 %Normal0-2MPromise Hospital of East Los Angeles Comment on above:Performed By: #### DIEGO #### [address] [address]689 Eosinophils #/vol (Bld)0.15 10*3/uLNormal0.00-0.44[facility] CenterComment on above:Performed By: #### JANNETHG #### [address] [address] Eosinophils/100 WBC (Bld)2 %Normal1-4[facility] Medical CenterComment on above:Performed By: #### DIEGO #### [address] [address] Erythrocyte distribution width Ratio (RBC)14.4 %Twhclu87.8-14.4 [facility] CenterComment on above:Performed By: #### JANNETHG #### [facility] [address] [place] [address] 83416 Hematocrit Volume Fraction (Bld)33.2 %Low36.3-47.1MPromise Hospital of East Los AngelesComment on above:Performed By: #### SPAG #### [facility] [address] [place] [address] 05776 Hemoglobin mass conc (Bld)10.4 g/dLLow11.9-15.1MPromise Hospital of East Los AngelesComment on above:Performed By: #### JANNETHG #### [address] [address] Immature granulocytes #/vol (Bld)3 %Halw3XdtarUniversity Hospitals Parma Medical CenterComment on above:Performed By: #### JANNETHG #### [facility] [address] [place] [address] 08961 Lymphocytes #/vol (Bld)2.22 10*3/uLNormal1.10-3.70[facility] CenterComment on above:Performed By: #### SPAG #### [facility] [address] [place] [address] 33381 Lymphocytes/100 WBC (Bld)29 %Cetvsk93-24RzksqUniversity Hospitals Parma Medical CenterComment on above:Performed By: #### SPAG #### [facility] [address] [place] [address] 47968 MCH Entitic mass (RBC)27.7 vwMnencw56.2-33.5[facility] CenterComment on above:Performed By: #### SPAG #### [facility] [address] [place] [address] 73382 MCHC mass conc (RBC)31.3 g/nBRlrnnk09.4-34.8[facility] CenterComment on above:Performed By: #### JANNETHG #### [employer] [address] [place] [address] 51839 MCV Entitic volume (RBC)88.3 yUDjjdtj88.6-102.9[facility] CenterComment on above:Performed By: #### JANNETHG #### [employer] [address] [place] [address] 46470 Monocytes #/vol (Bld)0.63 10*3/uLNormal0.10-1.20[facility] CenterComment on above:Performed By: #### DIEGO #### [employer] [address] [place] [address] 61837 Monocytes/100 WBC (Bld)8 %Normal3-12[facility] Medical CenterComment on above:Performed By: #### DIEGO #### [employer] [address] [place] [address] 64226 Neutrophil (Seg)57 %Tdemlw32-02MmvzoUniversity Hospitals Parma Medical Center Comment on above:Performed By: #### JANNETHG #### [employer] [address] [place] [address] 70091 NRBC Automated0.0 per 100 WBCNormal0.0[facility] Medical CenterComment on above:Performed By: #### SPAG #### [employer] [address] [place] [address] 32450 Platelets #/vol (Bld)See Reflexed IPF CskhqzSjgfub580-679XhsepUniversity Hospitals Parma Medical CenterComment on above:Performed By: #### SPAG #### [employer] [address] [place] [address] 15789 RBC #/vol (Bld)3.76 10*6/uLLow3.95-5.11[facility] CenterComment on above:Performed By: #### DIEGO #### [facility] [address] [place] [address] 55751 WBC #/vol (Bld)7.7 10*3/uLNormal3.5-11.3[facility] HospitalComment on above:Performed By: #### DIEGO #### [facility] [address] [place] [address] 90442 Auto Diff PerformedNOT REPORTEDOhioHealth Shelby HospitalComment on above:Performed By: #### DIEGO #### [facility] [address] [place] [address] 87160 Platelet mean volume Entitic volume (Bld)NOT REPORTEDCitizens Memorial Healthcareal8.1-13.5 [facility] CenterComment on above:Performed By: #### DIEGO #### [facility] [address] [place] [address] 86775 Platelets #/vol (Bld)NOT REPORTEDNoDiley Ridge Medical CenterComment on above:Performed By: #### DIEGO #### [facility] [address] [place] [address] 73752 RBC morphology finding Nom (Bld)NOT REPORTEDOhioHealth Shelby HospitalComment on above:Performed By: #### DIEGO #### [facility] CenterFast[facility] [address] [place] [address] 09445 WBC MorphologyNOT REPORTEDOhioHealth Shelby Hospital Comment on above:Performed By: #### DIEGO #### [facility] [address] [place] [address] 39282 Cult,Bloodon 30-17-9781Heef,BloodSpecimen Description .BLOOD Special Requests L AC 6ML Culture NO GROWTH 6 DAYS Report Status FINAL 08/23/2018[facility] Shelby HospitalComment on above:Performed By: #### DIEGO #### [address] [address] Cult,BloodSpecimen Description .BLOOD Special Requests L FOREARM 6ML Culture NO GROWTH 6 DAYS Report Status FINAL 08/23/2018NormalUniversity Hospitals Parma Medical CenterComment on above:Performed By: #### SPAG #### [address] [address] PLT, Immature Fract.on 36-33-0275Jicqdwxl, Fluoresc.113 k/uLLow 138-453MerDowney Regional Medical CenterComment on above:Performed By: #### SPAG #### [address] [address] PLT, Immature Fract.3.7 %Normal1.1-10.3[facility] HospitalComment on above:Performed By: #### SPAG #### [address] [address] CBC with Diffon [id number]. Basophil0.00 k/uLNormal0.0-0.2MPromise Hospital of East Los AngelesComment on above:Performed By: #### ULAG #### [address] [address] Abs.Imm.Granulocyte0.30 k/uLNormal0.00-0.30[facility] Parma Medical CenterComment on above:Performed By: #### ULAG #### [address] [address] Abs.Neutrophil (Seg)4.87 k/uLNormal1.8-7.7[facility] Parma Medical CenterComment on above:Performed By: #### ULAG #### [address] [address] Basophils/100 WBC (Bld)0 %Normal0-2[facility] Comment on above:Performed By: #### ULAG #### [facility] [address] [place] [address] Eosinophils #/vol (Bld)0.00 10*3/uLNormal0.0-0.4[facility] Parma Medical CenterComment on above:Performed By: #### ULAG #### [facility] [address] [place] [address]321 Eosinophils/100 WBC (Bld)0 %Low1-4[facility] Comment on above:Performed By: #### ULAG #### [facility] [address] [place] [address] 93152 Immature granulocytes #/vol (Bld)4 %Gulm4BdbgzUniversity Hospitals Parma Medical CenterComment on above:Performed By: #### ULAG #### [facility] [address] [place] [address] 42571 Lymphocytes #/vol (Bld)1.88 10*3/uLNormal1.0-4.8[facility] Parma Medical CenterComment on above:Performed By: #### ULAG #### [facility] [address] [place] [address] 6[address]24 Lymphocytes/100 WBC (Bld)25 %Ipugii88-46IptcwUniversity Hospitals Parma Medical CenterComment on above:Performed By: #### ULAG #### [facility] [address] [place] [address] 40047 Monocytes #/vol (Bld)0.45 10*3/uLNormal0.1-0.8[facility] Parma Medical CenterComment on above:Performed By: #### ULAG #### [facility] [address] [place] [address] 39034 Monocytes/100 WBC (Bld)6 %Normal1-7[facility] Comment on above:Performed By: #### ULAG #### [facility] [address] [place] [address] 71043 Morphology Interp Rehan (Bld)ANISOCYTOSIS PRESENTNormalUniversity Hospitals Parma Medical CenterComment on above:Performed By: #### ULAG #### [facility] [address] [place] [address] 55545 Neutrophil (Seg)65 %Ugkhvs49-80ZzhkyUniversity Hospitals Parma Medical Center Comment on above:Performed By: #### ULAG #### [facility] [address] [place] [address] 38499 Erythrocyte distribution width Ratio (RBC)14.5 %High11.8-14.4[facility] Parma Medical CenterComment on above:Performed By: #### ULAG #### [facility] [address] [place] [address] 64341 Hematocrit Volume Fraction (Bld)38.1 %Ecirvp78.3-47.1MPromise Hospital of East Los AngelesComment on above:Performed By: #### ULAG #### [facility] [address] [place] [address] 14434 Hemoglobin mass conc (Bld)11.5 g/dLLow11.9-15.1MPromise Hospital of East Los AngelesComment on above:Performed By: #### ULAG #### [facility] [address] [place] [address] 05987 MCH Entitic mass (RBC)28.3 jkWnjrjt18.2-33.5[facility] Parma Medical CenterComment on above:Performed By: #### ULAG #### [facility] [address] [place] [address] 62353 MCHC mass conc (RBC)30.2 g/mOMafzov02.4-34.8[facility] Medical CenterComment on above:Performed By: #### ULAG #### [facility] [address] [place] [address] 77032 MCV Entitic volume (RBC)93.6 sUSpvuia11.6-102.9[facility] Parma Medical CenterComment on above:Performed By: #### ULAG #### [facility] [address] [place] [address] NRBC Automated0.0 per 100 WBCNormal0.0[facility] Medical CenterComment on above:Performed By: #### ULAG #### [facility] [address] [place] [address] 15523 Platelet mean volume Entitic volume (Bld)10.7 fLNormal8.1-13.5[facility] Parma Medical CenterComment on above:Performed By: #### ULAG #### [address] [address] Platelets #/vol (Bld)265 10*3/vNWqwqvc987-251NxptsUniversity Hospitals Parma Medical CenterComment on above:Performed By: #### ULAG #### [facility] [address] [place] [address] 25578 RBC #/vol (Bld)4.07 10*6/uLNormal3.95-5.11[facility] Par[facility] Medical CenterComment on above:Performed By: #### ULAG #### [address] [address] WBC #/vol (Bld)7.5 10*3/uLNormal3.5-11.3MPromise Hospital of East Los AngelesComment on above:Performed By: #### ULAG #### [facility] [address] [place] [address] 71611 Auto Diff PerformedNOT REPORTEDCitizens Memorial HealthcarealUniversity Hospitals Parma Medical CenterComment on above:Performed By: #### ULAG #### [address] [address] Platelets #/vol (Bld)NOT REPORTEDNoDiley Ridge Medical CenterComment on above:Performed By: #### ULAG #### [facility] [address] [place] [address] 37189 RBC morphology finding Nom (Bld)NOT REPORTEDNoDiley Ridge Medical CenterComment on above:Performed By: #### ULAG #### [facility] [address] [place] [address] 78514 WBC MorphologyNOT REPORTEDNoDiley Ridge Medical Center Comment on above:Performed By: #### ULAG #### [facility] [address] [place] [address] 57160 Comp Metabolic Pr/rfx MGon 00-45-9063Enbrnio mass conc3.2 g/dLLow 3.5-5.2[facility] HospitalComment on above:Performed By: #### ULAG #### [facility] [address] [place] [address]403 Albumin/Globulin mass ratio0.8 {ratio}Low1.0-2.5[facility] Parma Medical CenterComment on above:Performed By: #### ULAG #### [facility] [address] [place] [address]841 Alkaline Phos90 U/TXpytla18-315VfuzdUniversity Hospitals Parma Medical Center Comment on above:Performed By: #### ULAG #### [employer] [address] [place] [address] 01805 ALT enzyme act/vol18 U/LNormal5-33[facility] Comment on above:Performed By: #### ULAG #### [facility] [address] [place] [address]126 AST enzyme act/vol16 U/LNormal<32[facility] Comment on above:Performed By: #### ULAG #### [facility] [address] [place] [address] 98499 Protein mass conc7.0 g/dLNormal6.4-8.3MPromise Hospital of East Los AngelesComment on above:Performed By: #### ULAG #### [facility] [place] [address] (cont.)NormalUniversity Hospitals Parma Medical CenterComment on above: Result Comment: Average GFR for 30-39 years old: 107 mL/min/1.73sq m Chronic Kidney Disease: <60 mL/min/1.73sq m Kidney failure: <15 mL/min/1.73sq m eGFR calculated using average adult body mass. Additional eGFR calculator available at: http://www.Zyante/multiple_crcl_2012.htmPerformed By: #### ULAG #### [employer] [facility] [address] [place] [address] 60738 Anion gap molar conc15 mmol/LNormal9-17[facility] Medical CenterComment on above:Performed By: #### ULAG #### [employer] [address] [place] [address]859 Bilirubin Ql (U)0.34 mg/dLNormal0.3-1.2MPromise Hospital of East Los AngelesComment on above:Performed By: #### ULAG #### [employer] [address] [place] [address] 6[address]26 Calcium mass conc9.7 mg/dLNormal8.6-10.4[facility] Parma Medical CenterComment on above:Performed By: #### ULAG #### [employer] [address] [place] [address] 40392 Chloride molar ngra760 mmol/GOlrwve55-806JibvhUniversity Hospitals Parma Medical CenterComment on above:Performed By: #### ULAG #### [employer] [address] [place] [address] 28240 CO2 molar conc24 mmol/JAwzere08-05SimqtUniversity Hospitals Parma Medical Center Comment on above:Performed By: #### ULAG #### [facility] [address] [place] [address] Creatinine mass conc1.02 mg/dLHigh0.50-0.90[facility] Medical CenterComment on above:Performed By: #### ULAG #### [facility] [address] [place] [address] 91483 GFR, Amer>60Normal>60[facility] Medical CenterComment on above:Performed By: #### ULAG #### [facility] [address] [place] [address] 27280 GFR,non Amer>60Normal>60[facility] Comment on above:Performed By: #### ULAG #### [facility] [address] [place] [address]193 Glucose mass cbdu860 mg/tSJcwf30-07QdrhpPromise Hospital of [facility] [place] Comment on above:Performed By: #### ULAG #### [facility] [address] [place] [address] 05761 Potassium molar conc4.5 mmol/LNormal3.7-5.3MPromise Hospital of East Los AngelesComment on above:Performed By: #### ULAG #### [facility] [address] [place] [address]19 Sodium molar ptuo325 mmol/GLsipbg011-717RegfrUniversity Hospitals Parma Medical CenterComment on above:Performed By: #### ULAG #### [facility] [address] [place] [address] 37920 Urea nitrogen mass conc19 mg/dLNormal6-20[facility] Medical CenterComment on above:Performed By: #### ULAG #### [facility] [address] [place] [address] 27142 BUN/CRE RatioNOT REPORTEDNormal9-20[facility] Comment on above:Performed By: #### ULAG #### [facility] [address] [place] [address]8096 Staging:NOT REPORTEDNoDiley Ridge Medical CenterComment on above:Performed By: #### ULAG #### [facility] [address] [place] [address]169 Magnesiumon 14-82-9170Gtxonppgb mass conc2.4 mg/dLNormal1.6-2.6 [facility] CenterComment on above:Performed By: #### ULAG #### [facility] [address] [place] [address] 05027 Vancomycin Troughon 25-80-3878Nmyjghxnxi Jryizs00.2 ug/mLCritically high10.0-20.0[facility] CenterComment on above:Result Comment: Higher trough serum vancomycin concentrations of 15-20 ug/mL are recommended for complicated infections such as bacteremia, endocarditis, osteomyelitis, meningitis, and hospital acquired pneumonia. ADDED ONPerformed By: #### ULAG #### [facility] [address] [place] [address]128 Date last dose,NOT REPORTEDNoDiley Ridge Medical Center Comment on above:Performed By: #### ULAG #### [facility] [address] [place] [address] 06911 Dose amount,NOT REPORTEDNormalUniversity Hospitals Parma Medical Center Comment on above:Performed By: #### ULAG #### [employer] [address] [place] [address] 82239 Time last dose,NOT REPORTEDNoDiley Ridge Medical Center Comment on above:Performed By: #### ULAG #### [facility] [address] [place] [address]34 CBC with Diffon 71-20-6519Ovv. Basophil0.08 k/uLNormal0.00-0.20 [facility] CenterComment on above:Performed By: #### ULAG #### [address] [address] Abs.Imm.Granulocyte0.50 k/uLHigh0.00-0.30[facility] CenterComment on above:Performed By: #### ULAG #### [address] [address] Abs.Neutrophil (Seg)4.73 k/uLNormal1.50-8.10[facility] Medical CenterComment on above:Performed By: #### ULAG #### [address] [address] Basophils/100 WBC (Bld)1 %Normal0-2MPromise Hospital of East Los Angeles Comment on above:Performed By: #### ULAG #### [address] [address] Eosinophils #/vol (Bld)0.17 10*3/uLNormal0.00-0.44[facility] Medical CenterComment on above:Performed By: #### ULAG #### [address] 8[address]68 Eosinophils/100 WBC (Bld)2 %Normal1-4[facility] Medical CenterComment on above:Performed By: #### ULAG #### [address] [address] Immature granulocytes #/vol (Bld)6 %Lhtl4SaoraUniversity Hospitals Parma Medical CenterComment on above:Performed By: #### ULAG #### [address] [address] Lymphocytes #/vol (Bld)2.24 10*3/uLNormal1.10-3.70[facility] Medical CenterComment on above:Performed By: #### ULAG #### [facility] [address] [place] [address] 12452 Lymphocytes/100 WBC (Bld)27 %Lsbmqz26-65RxezxUniversity Hospitals Parma Medical CenterComment on above:Performed By: #### ULAG #### [facility] [address] [place] [address] 23692 Monocytes #/vol (Bld)0.58 10*3/uLNormal0.10-1.20[facility] CenterComment on above:Performed By: #### ULAG #### [facility] [address] [place] [address] 58698 Monocytes/100 WBC (Bld)7 %Normal3-12[facility] Medical CenterComment on above:Performed By: #### ULAG #### [facility] [address] [place] [address] 33888 Morphology Interp Rehan (Bld)ANISOCYTOSIS PRESENTNormalUniversity Hospitals Parma Medical CenterComment on above:Performed By: #### ULAG #### [facility] [address] [place] [address] 45521 Neutrophil (Seg)57 %Yzbdli89-50DzmxpUniversity Hospitals Parma Medical Center Comment on above:Performed By: #### ULAG #### [facility] [address] [place] [address] 20524 Erythrocyte distribution width Ratio (RBC)14.6 %High11.8-14.4[facility] Medical CenterComment on above:Performed By: #### ULAG #### [facility] [address] [place] [address] 35252 Hematocrit Volume Fraction (Bld)38.5 %Aiwyag13.3-47.1MPromise Hospital of East Los AngelesComment on above:Performed By: #### ULAG #### [facility] [address] [place] [address] 07595 Hemoglobin mass conc (Bld)11.5 g/dLLow11.9-15.1MPromise Hospital of East Los AngelesComment on above:Performed By: #### ULAG #### [facility] [address] [place] [address] 65488 MCH Entitic mass (RBC)28.2 ueExtdlj65.2-33.5[facility] CenterComment on above:Performed By: #### ULAG #### [address] [address] MCHC mass conc (RBC)29.9 g/jOKvmuio75.4-34.8[facility] Medical CenterComment on above:Performed By: #### ULAG #### [address] [address] MCV Entitic volume (RBC)94.4 mGHyjlqx53.6-102.9[facility] Medical CenterComment on above:Performed By: #### ULAG #### [address] [address] NRBC Automated0.0 per 100 WBCNormal0.0[facility] Medical CenterComment on above:Performed By: #### ULAG #### [address] [address]401 Platelet mean volume Entitic volume (Bld)10.5 fLNormal8.1-13.5[facility] Medical CenterComment on above:Performed By: #### ULAG #### [address] [address] Platelets #/vol (Bld)264 10*3/uEJedzsw426-394OquizUniversity Hospitals Parma Medical CenterComment on above:Performed By: #### ULAG #### [facility] [address] [place] [address] 99782 RBC #/vol (Bld)4.08 10*6/uLNormal3.95-5.11[facility] CenterComment on above:Performed By: #### ULAG #### [employer] [address] [place] [address] 41030 WBC #/vol (Bld)8.3 10*3/uLNormal3.5-11.3[facility] HospitalComment on above:Performed By: #### ULAG #### [employer] [address] [place] [address] 56937 Auto Diff PerformedNOT REPORTEDOhioHealth Shelby HospitalComment on above:Performed By: #### ULAG #### [employer] [address] [place] [address] 22614 Platelets #/vol (Bld)NOT REPORTEDOhioHealth Shelby HospitalComment on above:Performed By: #### ULAG #### [employer] [address] [place] [address] 86294 RBC morphology finding Nom (Bld)NOT REPORTEDNoDiley Ridge Medical CenterComment on above:Performed By: #### ULAG #### [employer] [address] [place] [address] 53926 WBC MorphologyNOT REPORTEDOhioHealth Shelby Hospital Comment on above:Performed By: #### ULAG #### [employer] [address] [place] [address] 19546 Comp Metabolic Pr/rfx MGon 08-21-2018(cont.)OhioHealth Shelby HospitalComment on above:Result Comment: Average GFR for 30-39 years old: 107 mL/min/1.73sq m Chronic Kidney Disease: <60 mL/min/1.73sq m Kidney failure: <15 mL/min/1.73sq m eGFR calculated using average adult body mass. Additional eGFR calculator available at: http://www.globalrp.com/multiple_crcl_2012.htmPerformed By: #### ULAG #### [facility] [address] [place] [address] 44672 Albumin mass conc2.9 g/dLLow3.5-5.2MPromise Hospital of East [place] Angeles Comment on above:Performed By: #### ULAG #### [facility] [address] [place] [address] 33115 Albumin/Globulin mass ratio0.7 {ratio}Low1.0-2.5[facility] Medical CenterComment on above:Performed By: #### ULAG #### [facility] [address] [place] [address] 80566 Alkaline Phos98 U/QMnhggz15-873QwxogUniversity Hospitals Parma Medical Center Comment on above:Performed By: #### ULAG #### [facility] [address] [place] [address] 28784 ALT enzyme act/vol19 U/LNormal5-33[facility] Comment on above:Performed By: #### ULAG #### [facility] [address] [place] [address] 13977 Anion gap molar conc14 mmol/LNormal9-17[facility] CenterComment on above:Performed By: #### ULAG #### [facility] [address] [place] [address] 21920 AST enzyme act/vol21 U/LNormal<32[facility] Comment on above:Performed By: #### ULAG #### [facility] [address] [place] [address] 67134 Bilirubin Ql (U)0.32 mg/dLNormal0.3-1.2MPromise Hospital of East Los AngelesComment on above:Performed By: #### ULAG #### [facility] [address] [place] [address] 33590 Calcium mass conc9.1 mg/dLNormal8.6-10.4[facility] CenterComment on above:Performed By: #### ULAG #### [address] [address] Chloride molar vmni852 mmol/BOkbeao11-234UqycqUniversity Hospitals Parma Medical CenterComment on above:Performed By: #### ULAG #### [address] [address]331 CO2 molar conc23 mmol/QYghskb19-87PonjwUniversity Hospitals Parma Medical Center Comment on above:Performed By: #### ULAG #### [address] [address]30 Creatinine mass conc0.90 mg/dLNormal0.50-0.90[facility] CenterComment on above:Performed By: #### ULAG #### [address] 21966 GFR, Amer>60Normal>60[facility] CenterComment on above:Performed By: #### ULAG #### [address] 22521 GFR,non Amer>60Normal>60[facility] Comment on above:Performed By: #### ULAG #### [facility] [address] [place] [address] 24586 Glucose mass kgjs134 mg/yISsau51-88TygrqPromise Hospital of [facility] [place] Comment on above:Performed By: #### ULAG #### [address] 6[address] Potassium molar conc4.6 mmol/LNormal3.7-5.3MPromise Hospital of East Los AngelesComment on above:Performed By: #### ULAG #### [facility] [address] [place] [address] 78482 Protein mass conc6.9 g/dLNormal6.4-8.3[facility] HospitalComment on above:Performed By: #### ULAG #### [employer] [address] [place] [address] 54694 Sodium molar yubf663 mmol/ZOllrgh219-947IadahUniversity Hospitals Parma Medical CenterComment on above:Performed By: #### ULAG #### [employer] [address] [place] [address] 08634 Urea nitrogen mass conc17 mg/dLNormal6-20[facility] CenterComment on above:Performed By: #### ULAG #### [employer] [address] [place] [address] 13718 BUN/CRE RatioNOT REPORTEDSpartanburg9-20[facility] Comment on above:Performed By: #### ULAG #### [employer] [address] [place] [address] 86167 Staging:NOT REPORTEDNoDiley Ridge Medical CenterComment on above:Performed By: #### ULAG #### [employer] [address] [place] [address] 01456 Cult,Bloodon [id number],BloodSpecimen Description .BLOOD Special Requests L AC 20ML Culture POSITIVE Blood Culture CALLED TO MIS Medina [id number] DIRECT GRAM STAIN FROM BOTTLE: GRAM POSITIVE COCCI IN CLUSTERS METHICILLIN RESISTANT STAPHYLOCOCCUS AUREUS For susceptibility, refer to previous culture. Report Status FINAL 08/21/2018Ohio[facility] Shelby HospitalComment on above:Performed By: #### ULAG #### [employer] [address] [place] [address] 53339 MRI FOOT LEFT W WO CONTRASTon [id number] FOOT LEFT W WO CONTRAST EXAMINATION: MRI [...] by: Murali Goff MD 08/21/18 Final resultNormalMercy Eman[facility] Health/[facility] Of The Valley HospitalMagnesiumon 08-21-2018 Magnesium mass conc2.4 mg/dLNormal1.6-2.6[facility] HospitalComment on above:Performed By: #### ULAG #### [facility] [address] [place] [address] Procalcitoninon 33-78-8959Cwqeerc mass conc0.27 ng/mLHigh<0.09[facility] HospitalComment on above:Result Comment: Suspected Sepsis: 0.09-0.49 [...] entered into the Change in Procalcitonin Calculator (www.agzncd-ijq-qdifjmpogv.com) to determine the patient's Mortality Risk PrognosisPerformed By: #### SEBAG #### [facility] [address] [place] [address] [phone]-Yqeemvfs Proteinon 20-83-4195CXP mass conc50.4 mg/LHigh0.0-5.0 [facility] CenterComment on above:Performed By: #### LALO, TROPI, PRCAL, MYCM #### [employer] [address] [place] [address] CBC with Diffon [id number]. Basophil0.08 k/uLNormal0.0-0.2Mt[facility]y [facility] HospitalComment on above:Performed By: #### LALO, TROPI, PRCAL, MYCM #### [employer] [address] [place], [place] [address] Abs.Imm.Granulocyte0.42 k/uLHigh0.00-0.30MerDowney Regional Medical CenterComment on above:Performed By: #### LALO, DAMIENI, PRCAL, MYCM #### [address] [address] Abs.Neutrophil (Seg)4.57 k/uLNormal1.8-7.7[facility] CenterComment on above:Performed By: #### LALO, TROPI, PRCAL, MYCM #### [address] 9[address] Basophils/100 WBC (Bld)1 %Normal0-2MPromise Hospital of East [place] Comment on above:Performed By: #### LALO, TROPI, PRCAL, MYCM #### [place] [address] Eosinophils #/vol (Bld)0.25 10*3/uLNormal0.0-0.4[facility] CenterComment on above:Performed By: #### LALO, DAMIENI, PRCAL, MYCM #### [address] [address] [address] Eosinophils/100 WBC (Bld)3 %Normal1-4[facility] Parma Medical CenterComment on above:Performed By: #### LALO, TROPI, PRCAL, MYCM #### [address] [address] Immature granulocytes #/vol (Bld)5 %Smdx4CnxycDowney Regional Medical CenterComment on above:Performed By: #### LALO, TROPI, PRCAL, MYCM #### [address] [address] Lymphocytes #/vol (Bld)2.32 10*3/uLNormal1.0-4.8[facility] Medical CenterComment on above:Performed By: #### LACDS, TROPI, PRCAL, MYCM #### [facility] [address] [place] [address] Lymphocytes/100 WBC (Bld)28 %Ypjdvp65-44IbovuUniversity Hospitals Parma Medical CenterComment on above:Performed By: #### LACDS, TROPI, PRCAL, MYCM #### [facility] [address] [place] [address]98 Monocytes #/vol (Bld)0.66 10*3/uLNormal0.1-0.8[facility] CenterComment on above:Performed By: #### LACDS, TROPI, PRCAL, MYCM #### [facility] CenterFast[facility] [address] [place] [address] 41234 Monocytes/100 WBC (Bld)8 %High1-7[facility] Comment on above:Performed By: #### LACDS, TROPI, PRCAL, MYCM #### [facility] [address] [place] [address] 99388 Morphology Interp Rehan (Bld)ANISOCYTOSIS PRESENTNormalUniversity Hospitals Parma Medical CenterComment on above:Performed By: #### LACDS, TROPI, PRCAL, MYCM #### [facility] CenterFast[facility] [address] [place] [address] 64344 Neutrophil (Seg)55 %Adpmzg04-23JfxsnUniversity Hospitals Parma Medical Center Comment on above:Performed By: #### LACDS, TROPI, PRCAL, MYCM #### [facility] [address] [place] [address]16 Erythrocyte distribution width Ratio (RBC)14.6 %High11.8-14.4[facility] CenterComment on above:Performed By: #### LACDS, TROPI, PRCAL, MYCM #### [facility] CenterFast[facility] [address] [place] [address] 28518 Hematocrit Volume Fraction (Bld)33.5 %Low36.3-47.1MPromise Hospital of East Los AngelesComment on above:Performed By: #### LALO, TROPI, PRCAL, MYCM #### [facility] [address] [place] [address] 60345 Hemoglobin mass conc (Bld)10.2 g/dLLow11.9-15.1MPromise Hospital of East Los AngelesComment on above:Performed By: #### LACREY, TROPI, PRCAL, MYCM #### [facility] [address] [place] [address] 67600 MCH Entitic mass (RBC)27.9 yhHsesgg91.2-33.5[facility] CenterComment on above:Performed By: #### LALO, TROPI, PRCAL, MYCM #### [facility] [address] [place] [address] 79037 MCHC mass conc (RBC)30.4 g/wFUvvwue70.4-34.8[facility] CenterComment on above:Performed By: #### LALO, TROPI, PRCAL, MYCM #### [facility] [address] [place] [address] 98467 MCV Entitic volume (RBC)91.5 pMGxkqow00.6-102.9[facility] CenterComment on above:Performed By: #### LACREY, TROPI, PRCAL, MYCM #### [facility] CenterFast[facility] [address] [place] [address]39 NRBC Automated0.0 per 100 WBCNormal0.0[facility] CenterComment on above:Performed By: #### LACREY, TROPI, PRCAL, MYCM #### [facility]Fast[facility] [address] [place] [address] 05635 Platelet mean volume Entitic volume (Bld)11.0 fLNormal8.1-13.5[facility] CenterComment on above:Performed By: #### LACDS, TROPI, PRCAL, MYCM #### [facility] [address] [place] [address] 91589 Platelets #/vol (Bld)211 10*3/zOLfqgnv397-588AyhlxUniversity Hospitals Parma Medical CenterComment on above:Performed By: #### LACDS, TROPI, PRCAL, MYCM #### [facility] CenterFast[facility] [address] [place] [address] 60796 RBC #/vol (Bld)3.66 10*6/uLLow3.95-5.11[facility] CenterComment on above:Performed By: #### LACDS, TROPI, PRCAL, MYCM #### [facility] [address] [place] [address] 83568 WBC #/vol (Bld)8.3 10*3/uLNormal3.5-11.3MPromise Hospital of East Los AngelesComment on above:Performed By: #### LACDS, TROPI, PRCAL, MYCM #### [facility] [address] [place] [address] 87853 Auto Diff PerformedNOT REPORTEDNoalUniversity Hospitals Parma Medical CenterComment on above:Performed By: #### LACDS, TROPI, PRCAL, MYCM #### [facility] [address] [place] [address] 08431 Platelets #/vol (Bld)NOT REPORTEDNoDiley Ridge Medical CenterComment on above:Performed By: #### LACDS, TROPI, PRCAL, MYCM #### [facility] [address] [place] [address] 47034 RBC morphology finding Nom (Bld)NOT REPORTEDNormalUniversity Hospitals Parma Medical CenterComment on above:Performed By: #### LACDS, TROPI, PRCAL, MYCM #### [facility] [address] [place] [address] 00337 WBC MorphologyNOT REPORTEDNormalUniversity Hospitals Parma Medical Center Comment on above:Performed By: #### GRACE MAY PRCAL, MYCM #### [place] [address] [place] [address] 52439 Comp Metabolic Pr/rfx MGon 08-20-2018(cont.)NormalUniversity Hospitals Parma Medical CenterComment on above:Result Comment: Average GFR for 30-39 years old: 107 mL/min/1.73sq m Chronic Kidney Disease: <60 mL/min/1.73sq m Kidney failure: <15 mL/min/1.73sq m eGFR calculated using average adult body mass. Additional eGFR calculator available at: http://www.Zyante/multiple_crcl_2012.htmPerformed By: #### GRACE MAY PRCAL, MYCM #### [facility] CenterFast[facility] [address] [place] [address]99 Albumin mass conc3.1 g/dLLow3.5-5.2MPromise Hospital of East Los Angeles Comment on above:Performed By: #### GRACE MAY, PRCAL, MYCM #### [facility] [address] [place] [address]200 Albumin/Globulin mass ratio0.9 {ratio}Low1.0-2.5[facility] CenterComment on above:Performed By: #### DAMIEN MAYI, PRCAL, MYCM #### [facility] [address] [place] [address] 9[address]64 Alkaline Phos83 U/CMkccfb95-414JpxeyUniversity Hospitals Parma Medical Center Comment on above:Performed By: #### GRACE MAY, PRCAL, MYCM #### [facility] [address] [place] [address] 97079 ALT enzyme act/vol17 U/LNormal5-33[facility] Comment on above:Performed By: #### GRACE MAY, PRCAL, MYCM #### [facility] [place] [address] Anion gap molar conc11 mmol/LNormal9-17[facility] Medical CenterComment on above:Performed By: #### LACDS, TROPI, PRCAL, MYCM #### [facility] [address] [place] [address] 82868 AST enzyme act/vol18 U/LNormal<32[facility] Comment on above:Performed By: #### LACDS, TROPI, PRCAL, MYCM #### [facility] [address] [place] [address]1317 Bilirubin Ql (U)0.29 mg/dLLow0.3-1.2MPromise Hospital of East Los AngelesComment on above:Performed By: #### LACDS, TROPI, PRCAL, MYCM #### [facility] [address] [place] [address] 85272 Calcium mass conc9.0 mg/dLNormal8.6-10.4[facility] CenterComment on above:Performed By: #### LACDS, TROPI, PRCAL, MYCM #### [facility] [address] [place] [address] 76542 Chloride molar nvcy099 mmol/JXppmcl71-736TybdoUniversity Hospitals Parma Medical CenterComment on above:Performed By: #### LACDS, TROPI, PRCAL, MYCM #### [facility] [address] [place] [address] 34732 CO2 molar conc27 mmol/IDpttnc01-57TytynUniversity Hospitals Parma Medical Center Comment on above:Performed By: #### LACDS, TROPI, PRCAL, MYCM #### [facility] Center[facility] [address] [place] [address] 75494 Creatinine mass conc0.97 mg/dLHigh0.50-0.90[facility] CenterComment on above:Performed By: #### LACDS, TROPI, PRCAL, MYCM #### [facility] [address] [place] [address] 58967 GFR, Amer>60Normal>60[facility] HospitalComment on above:Performed By: #### LACDS, TROPI, PRCAL, MYCM #### [facility] [address] [place] [address]39 GFR,non Amer>60Normal>60[facility] Comment on above:Performed By: #### LACDS, TROPI, PRCAL, MYCM #### [facility] [address] [place] [address] 95435 Glucose mass psam828 mg/lQZxgi07-07Veowp [facility] Comment on above:Performed By: #### LACDS, TROPI, PRCAL, MYCM #### [facility] [address] [place] [address] 48977 Potassium molar conc4.4 mmol/LNormal3.7-5.3[facility] HospitalComment on above:Performed By: #### LACDS, TROPI, PRCAL, MYCM #### [facility] [address] [place] [address] 22497 Protein mass conc6.6 g/dLNormal6.4-8.3[facility] HospitalComment on above:Performed By: #### LACDS, TROPI, PRCAL, MYCM #### [facility] [address] [place] [address]143 Sodium molar rpyu337 mmol/GRccdly791-009Xolpn [facility] HospitalComment on above:Performed By: #### LACDS, TROPI, PRCAL, MYCM #### [facility] [address] [place] [address] 34085 Urea nitrogen mass conc15 mg/dLNormal6-20[facility] HospitalComment on above:Performed By: #### LACDS, TROPI, PRCAL, MYCM #### [facility]Fast[facility] [address] [place] [address] 67479 BUN/CRE RatioNOT REPORTEDNormal9-20[facility] Comment on above:Performed By: #### LACDS, TROPI, PRCAL, MYCM #### [facility] [address] [place] [address]12 Staging:NOT REPORTEDNoDiley Ridge Medical CenterComment on above:Performed By: #### LACDS, TROPI, PRCAL, MYCM #### [facility] [address] [place] [address] 87074 Magnesiumon 01-00-4673Krsuavpwu mass conc2.2 mg/dLNormal1.6-2.6 [facility] CenterComment on above:Performed By: #### LACDS, TROPI, PRCAL, MYCM #### [facility] [address] [place] [address] 14192 Sedimentation Rateon 57-79-6399Hdlajpsvgzksf Okyz473 mmHigh0-20 [facility] CenterComment on above:Performed By: #### LACDS, TROPI, PRCAL, MYCM #### [facility] [address] [place] [address] 16080 XR FOOT LEFT (MIN 3 VIEWS)on 48-70-5250OI FOOT LEFT (MIN 3 VIEWS) EXAMINATION: 3 [...] Signed by: Andrey Angelo MD 08/20/18 Final resultNoDiley Ridge Medical CenterCBC with Diffon [id number]. Basophil0.00 k/uLNormal0.0-0.2MPromise Hospital of East Los AngelesComment on above: Performed By: #### LALO, TROPI, PRCAL, MYCM #### [facility] [address] [place] [address] 39562 Abs.Imm.Granulocyte0.42 k/uLHigh0.00-0.30[facility] CenterComment on above:Performed By: #### LALO, TROPI, PRCAL, MYCM #### [facility] [address] [place] [address] 46482 Abs.Neutrophil (Seg)2.70 k/uLNormal1.8-7.7[facility] CenterComment on above:Performed By: #### LALO, TROPI, PRCAL, MYCM #### [facility] [address] [place] [address] 17627 Basophils/100 WBC (Bld)0 %Normal0-2MPromise Hospital of East [place] Angeles Comment on above:Performed By: #### LALO, TROPI, PRCAL, MYCM #### [facility] [address] [place] [address] 09229 Eosinophils #/vol (Bld)0.30 10*3/uLNormal0.0-0.4[facility] CenterComment on above:Performed By: #### LACDS, TROPI, PRCAL, MYCM #### [facility] [address] [place] [address] 11081 Eosinophils/100 WBC (Bld)5 %High1-4[facility] Comment on above:Performed By: #### LACDS, TROPI, PRCAL, MYCM #### [facility] [address] [place] [address] 67992 Immature granulocytes #/vol (Bld)7 %Bqvs7HynppUniversity Hospitals Parma Medical CenterComment on above:Performed By: #### LACDS, TROPI, PRCAL, MYCM #### [facility] [address] [place] [address] 73222 Lymphocytes #/vol (Bld)2.22 10*3/uLNormal1.0-4.8[facility] CenterComment on above:Performed By: #### LACDS, TROPI, PRCAL, MYCM #### [facility] [address] [place] [address] 71123 Lymphocytes/100 WBC (Bld)37 %Nmfexl64-31FvhrkUniversity Hospitals Parma Medical CenterComment on above:Performed By: #### LACDS, TROPI, PRCAL, MYCM #### [facility] [address] [place] [address] 55233 Monocytes #/vol (Bld)0.36 10*3/uLNormal0.1-0.8[facility] CenterComment on above:Performed By: #### LACDS, TROPI, PRCAL, MYCM #### [facility] [address] [place] [address] 52756 Monocytes/100 WBC (Bld)6 %Normal1-7[facility] Comment on above:Performed By: #### LACDS, TROPI, PRCAL, MYCM #### [facility] [address] [place] [address] 44187 Morphology Interp Rehan (Bld)ANISOCYTOSIS PRESENTNormalUniversity Hospitals Parma Medical CenterComment on above:Performed By: #### LACDS, TROPI, PRCAL, MYCM #### [facility] [address] [place] [address] 39684 Neutrophil (Seg)45 %Jndwbm80-80QydiyUniversity Hospitals Parma Medical Center Comment on above:Performed By: #### LACDS, TROPI, PRCAL, MYCM #### [facility] [address] [place] [address] 65420 Erythrocyte distribution width Ratio (RBC)14.6 %High11.8-14.4[facility] CenterComment on above:Performed By: #### LACDS, TROPI, PRCAL, MYCM #### [facility] [address] [place] [address] 69972 Hematocrit Volume Fraction (Bld)34.4 %Low36.3-47.1MPromise Hospital of East Los AngelesComment on above:Performed By: #### LACDS, TROPI, PRCAL, MYCM #### [facility] [address] [place] [address] 99445 Hemoglobin mass conc (Bld)10.4 g/dLLow11.9-15.1MPromise Hospital of East Los AngelesComment on above:Performed By: #### LACDS, TROPI, PRCAL, MYCM #### [facility] [address] [place] [address] 14811 MCH Entitic mass (RBC)28.0 ewLwflmb56.2-33.5[facility] CenterComment on above:Performed By: #### LACDS, TROPI, PRCAL, MYCM #### [facility] [address] [place] [address] 78637 MCHC mass conc (RBC)30.2 g/xQHdpbuk11.4-34.8[facility] CenterComment on above:Performed By: #### LACDS, TROPI, PRCAL, MYCM #### [facility] [address] [place] [address] 56135 MCV Entitic volume (RBC)92.7 iGXhpuat64.6-102.9[facility] CenterComment on above:Performed By: #### LACDS, TROPI, PRCAL, MYCM #### [facility] [address] [place] [address] 34014 NRBC Automated0.3 per 100 WBCHigh0.0[facility] CenterComment on above:Performed By: #### LACDS, TROPI, PRCAL, MYCM #### [facility] [address] [place] [address] 11231 Platelet mean volume Entitic volume (Bld)10.5 fLNormal8.1-13.5[facility] CenterComment on above:Performed By: #### LACDS, TROPI, PRCAL, MYCM #### [facility] [address] [place] [address] 99825 Platelets #/vol (Bld)168 10*3/cQQvgukm384-423AkvrxUniversity Hospitals Parma Medical CenterComment on above:Performed By: #### LACDS, TROPI, PRCAL, MYCM #### [facility] [address] [place] [address] 02973 RBC #/vol (Bld)3.71 10*6/uLLow3.95-5.11[facility] CenterComment on above:Performed By: #### LACDS, TROPI, PRCAL, MYCM #### [facility] [address] [place] [address] 20919 WBC #/vol (Bld)6.0 10*3/uLNormal3.5-11.3MercNatividad Medical CenterComment on above:Performed By: #### LACDS, TROPI, PRCAL, MYCM #### [facility] [address] [place] [address] 53395 Auto Diff PerformedNOT REPORTEDOhioHealth Shelby HospitalComment on above:Performed By: #### LACDS, TROPI, PRCAL, MYCM #### [facility] [address] [place] [address] 20286 Platelets #/vol (Bld)NOT REPORTEDOhioHealth Shelby HospitalComment on above:Performed By: #### LACDS, TROPI, PRCAL, MYCM #### [facility] [place] [address] RBC morphology finding Nom (Bld)NOT REPORTEDNoDiley Ridge Medical CenterComment on above:Performed By: #### LACDS, TROPI, PRCAL, MYCM #### [facility] [address] [place] [address] 53321 WBC MorphologyNOT REPORTEDNormalUniversity Hospitals [facility] Center Comment on above:Performed By: #### LACDS, TROPI, PRCAL, MYCM #### [facility] [address] [place] [address] 55230 Comp Metabolic Pr/rfx MGon 08-19-2018(cont.)NormalUniversity Hospitals Parma Medical CenterComment on above:Result Comment: Average GFR for 30-39 years old: 107 mL/min/1.73sq m Chronic Kidney Disease: <60 mL/min/1.73sq m Kidney failure: <15 mL/min/1.73sq m eGFR calculated using average adult body mass. Additional eGFR calculator available at: http://www.Zyante/multiple_crcl_2012.htmPerformed By: #### LACDS, TROPI, PRCAL, MYCM #### [facility] [place] [address] Albumin mass conc2.7 g/dLLow3.5-5.2[facility] Comment on above:Performed By: #### LACDS, TROPI, PRCAL, MYCM #### [facility] [place] [address] Albumin/Globulin mass ratio0.8 {ratio}Low1.0-2.5[facility] CenterComment on above:Performed By: #### LACDS, TROPI, PRCAL, MYCM #### [facility] [address] [place] [address] 46319 Alkaline Phos78 U/XZocnrx69-331TedwgUniversity Hospitals Parma Medical Center Comment on above:Performed By: #### LACDS, TROPI, PRCAL, MYCM #### [facility] [address] [place] [address] 14558 ALT enzyme act/vol16 U/LNormal5-33[facility] Comment on above:Performed By: #### LACDS, TROPI, PRCAL, MYCM #### [facility] CenterFast[facility] [address] [place] [address] 15481 Anion gap molar conc10 mmol/LNormal9-17[facility] CenterComment on above:Performed By: #### LACDS, TROPI, PRCAL, MYCM #### [facility] [address] [place] [address] 84144 AST enzyme act/vol16 U/LNormal<32[facility] Comment on above:Performed By: #### LACDS, TROPI, PRCAL, MYCM #### [facility] Center[facility] [address] [place] [address] 82844 Bilirubin Ql (U)0.21 mg/dLLow0.3-1.2MPromise Hospital of East Los AngelesComment on above:Performed By: #### LACDS, TROPI, PRCAL, MYCM #### [facility] [address] [place] [address] 76994 Calcium mass conc8.5 mg/dLLow8.6-10.4[facility] CenterComment on above:Performed By: #### LACDS, TROPI, PRCAL, MYCM #### [facility] [address] [place] [address] 97818 Chloride molar ozfk988 mmol/VZgmbcq67-042WynvvUniversity Hospitals Parma Medical CenterComment on above:Performed By: #### LACDS, TROPI, PRCAL, MYCM #### [facility] [address] [place] [address] 80985 CO2 molar conc24 mmol/SUqhdpp58-77VfesvUniversity Hospitals Parma Medical Center Comment on above:Performed By: #### LACDS, TROPI, PRCAL, MYCM #### [facility] [address] [place] [address] 89000 Creatinine mass conc0.88 mg/dLNormal0.50-0.90[facility] CenterComment on above:Performed By: #### LACDS, TROPI, PRCAL, MYCM #### [facility] [address] [place] [address] 36663 GFR, Amer>60Normal>60[facility] CenterComment on above:Performed By: #### LACDS, TROPI, PRCAL, MYCM #### [facility] [address] [place] [address] 76484 GFR,non Amer>60Normal>60[facility] Comment on above:Performed By: #### LACDS, TROPI, PRCAL, MYCM #### [facility] [address] [place] [address] 31474 Glucose mass xsjo687 mg/dESvyy28-85QeisxPromise Hospital of [facility] [place] Comment on above:Performed By: #### LACDS, TROPI, PRCAL, MYCM #### [facility] [address] [place] [address] 10363 Potassium molar conc4.0 mmol/LNormal3.7-5.3MPromise Hospital of East Los AngelesComment on above:Performed By: #### LACDS, TROPI, PRCAL, MYCM #### [facility] [address] [place] [address] 52176 Protein mass conc6.3 g/dLLow6.4-8.3Mt[facility]y [facility] Comment on above:Performed By: #### LACDS, TROPI, PRCAL, MYCM #### [facility] [address] [place] [address] 15126 Sodium molar zjti179 mmol/NEnpblp156-240WvmrjUniversity Hospitals Parma Medical CenterComment on above:Performed By: #### LALO, TROPI, PRCAL, MYCM #### [facility] [address] [place] [address] Urea nitrogen mass conc16 mg/dLNormal6-20[facility] CenterComment on above:Performed By: #### LACREY, TROPI, PRCAL, MYCM #### [facility] [place] [address] BUN/CRE RatioNOT REPORTEDNormal9-20[facility] Comment on above:Performed By: #### LALO, TROPI, PRCAL, MYCM #### [facility] [address] [place] [address] 80811 Staging:NOT REPORTEDNormMercy Health Defiance HospitalComment on above:Performed By: #### LACREY, TROPI, PRCAL, MYCM #### [facility] [address] [place] [address] 42152 Cult, Bloodon [id number], BloodSpecimen Description .BLOOD Special Requests L HAND [...] NOT REPORTED Trimethoprim/Sulfa <=10 SUSCEPTIBLE Vancomycin 1 SUSCEPTIBLENoDiley Ridge Medical CenterComment on above: Performed By: #### LACDS, TROPI, PRCAL, MYCM #### [facility] [address] [place] [address] MRI CERVICAL SPINE W WO CONTRASTon [id number] CERVICAL SPINE W WO CONTRASTEXAMINATION: MRI OF [...] Signed by: Bo Rodrigues MD 08/19/18 Final resultNormalMerDowney Regional Medical CenterMRI LUMBAR SPINE W WO CONTRAST on 40-21-2690ODQ LUMBAR SPINE W WO CONTRASTEXAMINATION: MRI OF [...] by: Bo Rodrigues MD 08/19/18 Final resultNormalMercy Fabiola Hospital THORACIC SPINE W WO CONTRASTon [id number] THORACIC SPINE W WO CONTRASTEXAMINATION: MRI OF [...] by: Bo Rodrigues MD 08/19/18 Final resultNormalMercy [facility] HospitalMagnesiumon 08-19-2018 Magnesium mass conc2.3 mg/dLNormal1.6-2.6[facility] HospitalComment on above:Performed By: #### GRACE MAY PRCAL, MARYCRUZM #### [facility] [address] [place] [address] Procalcitoninon 06-11-7346Diqknfs mass conc0.57 ng/mLHigh<0.09MerDowney Regional Medical CenterComment on above:Result Comment: Suspected [...] entered into the Change in Procalcitonin Calculator (www.wnijof-irf-pyomekozzz.com) to determine the patient's Mortality Risk PrognosisPerformed By: #### GRACE MAY PRCAL, MARYCRUZM #### [facility] [address] [place] [address] CBC with Diffon [id number]. Basophil<0.81Qneuzy0.00-0.20MerDowney Regional Medical CenterComment on above:Performed By: #### GRACE MAY PRCAL, JAZMYN #### [facility] [address] [place] [address] Abs.Imm.Granulocyte0.28 k/uLNormal0.00-0.30MerDowney Regional Medical CenterComment on above:Performed By: #### DAMIEN MAYI, PRCAL, MYCM #### [facility] [address] [place] [address] 85549 Abs.Neutrophil (Seg)3.23 k/uLNormal1.50-8.10[facility] CenterComment on above:Performed By: #### LACDS, TROPI, PRCAL, MYCM #### [facility] [address] [place] [address] 74918 Basophils/100 WBC (Bld)0 %Normal0-2[facility] Comment on above:Performed By: #### LACDS, TROPI, PRCAL, MYCM #### [facility] [address] [place] [address] 48045 Eosinophils #/vol (Bld)0.15 10*3/uLNormal0.00-0.44[facility] CenterComment on above:Performed By: #### LACDS, TROPI, PRCAL, MYCM #### [facility] [address] [place] [address] 61443 Eosinophils/100 WBC (Bld)3 %Normal1-4[facility] CenterComment on above:Performed By: #### LACDS, TROPI, PRCAL, MYCM #### [facility] [address] [place] [address] 06486 Erythrocyte distribution width Ratio (RBC)14.7 %High11.8-14.4[facility] CenterComment on above:Performed By: #### LACDS, TROPI, PRCAL, MYCM #### [facility] [address] [place] [address] 46883 Hematocrit Volume Fraction (Bld)32.7 %Low36.3-47.1MercNatividad Medical CenterComment on above:Performed By: #### LACDS, TROPI, PRCAL, MYCM #### [facility] [address] [place] [address] 38654 Hemoglobin mass conc (Bld)10.1 g/dLLow11.9-15.1[facility]y [facility] HospitalComment on above:Performed By: #### LACREY, TROPI, PRCAL, MYCM #### [facility] [address] [place] [address] 28551 Immature granulocytes #/vol (Bld)5 %Exxt8RhmnrUniversity Hospitals Parma Medical CenterComment on above:Performed By: #### LACREY, TROPI, PRCAL, MYCM #### [facility] [address] [place] [address] 30393 Lymphocytes #/vol (Bld)1.58 10*3/uLNormal1.10-3.70[facility] CenterComment on above:Performed By: #### LACREY, TROPI, PRCAL, MYCM #### [facility] [address] [place] [address] 21962 Lymphocytes/100 WBC (Bld)28 %Lrmnqx77-02PebxrUniversity Hospitals Parma Medical CenterComment on above:Performed By: #### LALO, TROPI, PRCAL, MYCM #### [facility] [address] [place] [address] 25213 MCH Entitic mass (RBC)28.2 zpWtlqbw65.2-33.5[facility] CenterComment on above:Performed By: #### LACREY, TROPI, PRCAL, MYCM #### [facility] [address] [place] [address] 27665 MCHC mass conc (RBC)30.9 g/oPBvvqjb04.4-34.8[facility] CenterComment on above:Performed By: #### LACDS, TROPI, PRCAL, MYCM #### [facility] [address] [place] [address] 20194 MCV Entitic volume (RBC)91.3 sSHvhrvr72.6-102.9[facility] CenterComment on above:Performed By: #### LACDS, TROPI, PRCAL, MYCM #### [facility] [address] [place] [address] 44077 Monocytes #/vol (Bld)0.47 10*3/uLNormal0.10-1.20[facility] CenterComment on above:Performed By: #### LACDS, TROPI, PRCAL, MYCM #### [facility] [address] [place] [address] 78290 Monocytes/100 WBC (Bld)8 %Normal3-12[facility] CenterComment on above:Performed By: #### LACDS, TROPI, PRCAL, MYCM #### [facility] [address] [place] [address] 23696 Neutrophil (Seg)56 %Mabwfs29-66GutgjUniversity Hospitals Parma Medical Center Comment on above:Performed By: #### LACDS, TROPI, PRCAL, MYCM #### [facility] [address] [place] [address] 52697 NRBC Automated0.0 per 100 WBCNormal0.0[facility] CenterComment on above:Performed By: #### LACDS, TROPI, PRCAL, MYCM #### [address] [address] Platelet mean volume Entitic volume (Bld)11.4 fLNormal8.1-13.5[facility] CenterComment on above:Performed By: #### LACDS, TROPI, PRCAL, MYCM #### [facility] [address] [place] [address] 33312 Platelets #/vol (Bld)153 10*3/tFOsafzm313-870EimviUniversity Hospitals Parma Medical CenterComment on above:Performed By: #### LACDS, TROPI, PRCAL, MYCM #### [facility] [address] [place] [address] 15147 RBC #/vol (Bld)3.58 10*6/uLLow3.95-5.11[facility] CenterComment on above:Performed By: #### LACDS, TROPI, PRCAL, MYCM #### [facility] [address] [place] [address] 71523 RBC morphology finding Nom (Bld)ANISOCYTOSIS PRESENTNormalUniversity Hospitals Parma Medical CenterComment on above:Performed By: #### LACDS, TROPI, PRCAL, MYCM #### [facility] [address] [place] [address] 82422 WBC #/vol (Bld)5.7 10*3/uLNormal3.5-11.3[facility] HospitalComment on above:Performed By: #### LACDS, TROPI, PRCAL, MYCM #### [employer] [facility] [address] [place] [address] 14862 Auto Diff PerformedNOT REPORTEDNormMercy Health Defiance HospitalComment on above:Performed By: #### LACDS, TROPI, PRCAL, MYCM #### [employer] [facility] [address] [place] [address] 63617 Platelets #/vol (Bld)NOT REPORTEDNormMercy Health Defiance HospitalComment on above:Performed By: #### LACDS, TROPI, PRCAL, MYCM #### [employer] [facility] [address] [place] [address] 89687 WBC MorphologyNOT REPORTEDNoDiley Ridge Medical Center Comment on above:Performed By: #### LACDS, TROPI, PRCAL, MYCM #### [employer] [facility] [address] [place] [address] 39454 Comp Metabolic Pr/rfx MGon 08-18-2018(cont.)NormalUniversity Hospitals Parma Medical CenterComment on above:Result Comment: Average GFR for 30-39 years old: 107 mL/min/1.73sq m Chronic Kidney Disease: <60 mL/min/1.73sq m Kidney failure: <15 mL/min/1.73sq m eGFR calculated using average adult body mass. Additional eGFR calculator available at: http://www.Zyante/multiple_crcl_2012.htmPerformed By: #### LACDS, TROPI, PRCAL, MYCM #### [facility]Fast[facility] [address] [place] [address] 75138 Albumin mass conc2.7 g/dLLow3.5-5.2[facility] Comment on above:Performed By: #### LACDS, TROPI, PRCAL, MYCM #### [facility] [address] [place] [address] 35486 Albumin/Globulin mass ratio0.8 {ratio}Low1.0-2.5[facility] CenterComment on above:Performed By: #### LACDS, TROPI, PRCAL, MYCM #### [employer] [address] [place] [address] 04937 Alkaline Phos82 U/TPphnba55-888QktsyUniversity Hospitals Parma Medical Center Comment on above:Performed By: #### LACDS, TROPI, PRCAL, MYCM #### [facility] [address] [place] [address] 74559 ALT enzyme act/vol19 U/LNormal5-33[facility] Comment on above:Performed By: #### LACDS, TROPI, PRCAL, MYCM #### [facility] [address] [place] [address] 83272 Anion gap molar conc8 mmol/LLow9-17[facility] Comment on above:Performed By: #### LACDS, TROPI, PRCAL, MYCM #### [employer] [facility] [address] [place] [address] 85526 AST enzyme act/vol17 U/LNormal<32[facility] Comment on above:Performed By: #### LACDS, TROPI, PRCAL, MYCM #### [facility] [address] [place] [address] 07903 Bilirubin Ql (U)0.24 mg/dLLow0.3-1.2MPromise Hospital of East Los AngelesComment on above:Performed By: #### LACDS, TROPI, PRCAL, MYCM #### [facility] [address] [place] [address] 66019 Calcium mass conc8.2 mg/dLLow8.6-10.4[facility] CenterComment on above:Performed By: #### LACDS, TROPI, PRCAL, MYCM #### [facility] [address] [place] [address] 67216 Chloride molar omhx202 mmol/ERypmts07-560MqstjUniversity Hospitals Parma Medical CenterComment on above:Performed By: #### LACDS, TROPI, PRCAL, MYCM #### [facility] [address] [place] [address] 74770 CO2 molar conc25 mmol/UPufpxt19-65KgdegUniversity Hospitals Par[facility] Center Comment on above:Performed By: #### LACDS, TROPI, PRCAL, MYCM #### [facility] [address] [place] [address] 51359 Creatinine mass conc0.94 mg/dLHigh0.50-0.90[facility] CenterComment on above:Performed By: #### LACDS, TROPI, PRCAL, MYCM #### [facility] [address] [place] [address] 97499 GFR, Amer>60Normal>60MerDowney Regional Medical CenterComment on above:Performed By: #### LACDS, TROPI, PRCAL, MYCM #### [facility] [address] [place] [address] 40817 GFR,non Amer>60Normal>60[facility] Comment on above:Performed By: #### LACDS, TROPI, PRCAL, MYCM #### [facility] [address] [place] [address] 06384 Glucose mass cces718 mg/bPYbzh96-06UnzxrPromise [facility] of [facility] [place] Comment on above:Performed By: #### LACDS, TROPI, PRCAL, MYCM #### [facility] [address] [place] [address] 90199 Potassium molar conc4.1 mmol/LNormal3.7-5.3MPromise Hospital of East Los AngelesComment on above:Performed By: #### LACDS, TROPI, PRCAL, MYCM #### [facility] [address] [place] [address] 41531 Protein mass conc6.2 g/dLLow6.4-8.3MPromise Hospital of [place] Angeles Comment on above:Performed By: #### LACDS, TROPI, PRCAL, MYCM #### [facility] [address] [place] [address] 18416 Sodium molar gmlb716 mmol/APpbhqi693-383FoiatUniversity Hospitals Parma Medical CenterComment on above:Performed By: #### LACDS, TROPI, PRCAL, MYCM #### [facility] [address] [place] [address] 50140 Urea nitrogen mass conc14 mg/dLNormal6-20[facility] CenterComment on above:Performed By: #### LACDS, TROPI, PRCAL, MYCM #### [facility] [address] [place] [address] 07064 BUN/CRE RatioNOT REPORTEDNormal9-20[facility] Comment on above:Performed By: #### LACDS, TROPI, PRCAL, MYCM #### [facility] [address] [place] [address] 37579 Staging:NOT REPORTEDNoDiley Ridge Medical CenterComment on above:Performed By: #### LALO, TROPI, PRCAL, MYCM #### [facility] [address] [place] [address] 24847 Magnesiumon 49-60-7810Hjmoarbaw mass conc2.3 mg/dLNormal1.6-2.6 [facility] CenterComment on above:Performed By: #### LACREY, TROPI, PRCAL, MYCM #### [facility] [address] [place] [address] 31456 Vancomycin Troughon 75-32-7286Jwpasmusat Uprndn63.7 ug/mLNormal 10.0-20.0[facility] CenterComment on above:Result Comment: Higher trough serum vancomycin concentrations of 15-20 ug/mL are recommended for complicated infections such as bacteremia, endocarditis, osteomyelitis, meningitis, and hospital acquired pneumonia.Performed By: #### LALO, TROPI, PRCAL, MYCM #### [employer] [address] [place] [address] 38359 Date last dose,NOT REPORTEDNoDiley Ridge Medical Center Comment on above:Performed By: #### LALO, TROPI, PRCAL, MYCM #### [employer] [facility] [address] [place] [address] 52702 Dose amount,NOT REPORTEDNoDiley Ridge Medical Center Comment on above:Performed By: #### LACREY, TROPI, PRCAL, MYCM #### [employer] [facility] [address] [place] [address] 85678 Time last dose,NOT REPORTEDNoDiley Ridge Medical Center Comment on above:Performed By: #### LACREY, TROPI, PRCAL, MYCM #### [employer] [address] [place] [address] 60997 [phone]-Pxydtvfg Proteinon 37-39-6798YJK mass kknu759.1 mg/LHigh0.0-5.0 [facility] CenterComment on above:Performed By: #### LALO, DAMIENI, PRCAL, MYCM #### [place] [address] CBC with Diffon 68-30-9521Lqs. Basophil0.00 k/uLNormal0.0-0.2MPromise Hospital of East Los AngelesComment on above:Performed By: #### LALO, TROPI, PRCAL, MYCM #### [facility] [address] [place] [address] 62479 Abs.Imm.Granulocyte0.13 k/uLNormal0.00-0.30[facility] CenterComment on above:Performed By: #### LALO, TROPI, PRCAL, MYCM #### [place] [address] Abs.Neutrophil (Seg)4.35 k/uLNormal1.8-7.7[facility] CenterComment on above:Performed By: #### LALO, TROPI, PRCAL, MYCM #### [address] 25963 Basophils/100 WBC (Bld)0 %Normal0-2MPromise Hospital of East [place] Comment on above:Performed By: #### LALO, TROPI, PRCAL, MYCM #### [address] [address]39 Eosinophils #/vol (Bld)0.06 10*3/uLNormal0.0-0.4[facility] CenterComment on above:Performed By: #### LALO, TROPI, PRCAL, MYCM #### [facility] [address] [place] [address] 34150 Eosinophils/100 WBC (Bld)1 %Normal1-4[facility] CenterComment on above:Performed By: #### LACDS, TROPI, PRCAL, MYCM #### [facility] [address] [place] [address] 87042 Immature granulocytes #/vol (Bld)2 %Shfx4IjobiUniversity Hospitals Parma Medical CenterComment on above:Performed By: #### LACDS, TROPI, PRCAL, MYCM #### [facility] [address] [place] [address] 59456 Lymphocytes #/vol (Bld)1.32 10*3/uLNormal1.0-4.8[facility] CenterComment on above:Performed By: #### LACDS, TROPI, PRCAL, MYCM #### [facility] [address] [place] [address] 17298 Lymphocytes/100 WBC (Bld)21 %Giq52-86YsviiUniversity Hospitals Parma Medical CenterComment on above:Performed By: #### LACDS, TROPI, PRCAL, MYCM #### [facility] [address] [place] [address] 66060 Monocytes #/vol (Bld)0.44 10*3/uLNormal0.1-0.8[facility] CenterComment on above:Performed By: #### LACDS, TROPI, PRCAL, MYCM #### [facility] [address] [place] [address] 86302 Monocytes/100 WBC (Bld)7 %Normal1-7[facility] Comment on above:Performed By: #### LACDS, TROPI, PRCAL, MYCM #### [facility] [address] [place] [address] 58731 Morphology Interp Rehan (Bld)ANISOCYTOSIS PRESENTNormalUniversity Hospitals Parma Medical CenterComment on above:Result Comment: INCREASED BANDS PRESENT 1+ TEARDROPSPerformed By: #### LACDS, TROPI, PRCAL, MYCM #### [facility] [address] [place] [address] 43649 Neutrophil (Seg)69 %Pccy85-12LpnxbUniversity Hospitals Parma Medical Center Comment on above:Performed By: #### LACDS, TROPI, PRCAL, MYCM #### [facility] [address] [place] [address] 16259 Erythrocyte distribution width Ratio (RBC)14.8 %High11.8-14.4[facility] CenterComment on above:Performed By: #### LACDS, TROPI, PRCAL, MYCM #### [facility] [address] [place] [address] 89138 Hematocrit Volume Fraction (Bld)33.3 %Low36.3-47.1MPromise Hospital of East Los AngelesComment on above:Performed By: #### LACDS, TROPI, PRCAL, MYCM #### [facility] [address] [place] [address] 48169 Hemoglobin mass conc (Bld)10.2 g/dLLow11.9-15.1MPromise Hospital of East Los AngelesComment on above:Performed By: #### LACDS, TROPI, PRCAL, MYCM #### [facility] [address] [place] [address] 59264 MCH Entitic mass (RBC)28.3 auGlhuze97.2-33.5[facility] CenterComment on above:Performed By: #### LACDS, TROPI, PRCAL, MYCM #### [facility] [address] [place] [address] 14542 MCHC mass conc (RBC)30.6 g/uQWhiyxi42.4-34.8[facility] CenterComment on above:Performed By: #### LACDS, TROPI, PRCAL, MYCM #### [facility] [address] [place] [address] 23118 MCV Entitic volume (RBC)92.2 yOZkvwlt16.6-102.9[facility] CenterComment on above:Performed By: #### LACDS, TROPI, PRCAL, MYCM #### [facility] [address] [place] [address] 52162 NRBC Automated0.0 per 100 WBCNormal0.0[facility] CenterComment on above:Performed By: #### LACDS, TROPI, PRCAL, MYCM #### [facility] [address] [place] [address] Platelet mean volume Entitic volume (Bld)11.5 fLNormal8.1-13.5[facility] CenterComment on above:Performed By: #### LACDS, TROPI, PRCAL, MYCM #### [facility] [address] [place] [address] Platelets #/vol (Bld)149 10*3/kZKjanma053-150FvdtpUniversity Hospitals Parma Medical CenterComment on above:Performed By: #### LACDS, TROPI, PRCAL, MYCM #### [facility] [address] [place] [address] 86175 RBC #/vol (Bld)3.61 10*6/uLLow3.95-5.11[facility] CenterComment on above:Performed By: #### LACDS, TROPI, PRCAL, MYCM #### [facility] [address] [place] [address] 08482 WBC #/vol (Bld)6.3 10*3/uLNormal3.5-11.3MPromise Hospital of East Los AngelesComment on above:Performed By: #### LACDS, TROPI, PRCAL, MYCM #### [facility] [address] [place] [address] 19665 Auto Diff PerformedNOT REPORTEDCitizens Memorial HealthcarealUniversity Hospitals Parma Medical CenterComment on above:Performed By: #### LACDS, TROPI, PRCAL, MYCM #### [facility] [address] [place] [address] 99792 Platelets #/vol (Bld)NOT REPORTEDNoDiley Ridge Medical CenterComment on above:Performed By: #### LACDS, TROPI, PRCAL, MYCM #### [employer] [address] [place] [address] 09223 RBC morphology finding Nom (Bld)NOT REPORTEDNoDiley Ridge Medical CenterComment on above:Performed By: #### LACDS, TROPI, PRCAL, MYCM #### [employer] [address] [place] [address] 61750 WBC MorphologyNOT REPORTEDNoDiley Ridge Medical Center Comment on above:Performed By: #### LACDS, TROPI, PRCAL, MYCM #### [facility] [address] [place] [address] 48194 Comp Metabolic Pr/rfx MGon 08-17-2018(cont.)[facility] HospitalComment on above:Result Comment: Average GFR for 30-39 years old: 107 mL/min/1.73sq m Chronic Kidney Disease: <60 mL/min/1.73sq m Kidney failure: <15 mL/min/1.73sq m eGFR calculated using average adult body mass. Additional eGFR calculator available at: http://www.Solartrec.com/multiple_crcl_2012.htmPerformed By: #### LACDS, TROPI, PRCAL, MYCM #### [facility] [address] [place] [address] 72861 Albumin mass conc2.4 g/dLLow3.5-5.2[facility] Comment on above:Performed By: #### LACDS, TROPI, PRCAL, MYCM #### [employer] [address] [place] [address] 65306 Albumin/Globulin mass ratio0.7 {ratio}Low1.0-2.5[facility] CenterComment on above:Performed By: #### LACDS, TROPI, PRCAL, MYCM #### [facility] [address] [place] [address] 54941 Alkaline Phos76 U/SYlpjov63-189LuakrUniversity Hospitals Parma Medical Center Comment on above:Performed By: #### LACDS, TROPI, PRCAL, MYCM #### [facility] [address] [place] [address] 19986 ALT enzyme act/vol25 U/LNormal5-33[facility] Comment on above:Performed By: #### LACDS, TROPI, PRCAL, MYCM #### [facility] [address] [place] [address] 81212 Anion gap molar conc8 mmol/LLow9-17[facility] Comment on above:Performed By: #### LACDS, TROPI, PRCAL, MYCM #### [facility] [address] [place] [address] 39771 AST enzyme act/vol26 U/LNormal<32[facility] Comment on above:Performed By: #### LACDS, TROPI, PRCAL, MYCM #### [facility] [address] [place] [address] 90875 Bilirubin Ql (U)0.34 mg/dLNormal0.3-1.2MPromise Hospital of East Los AngelesComment on above:Performed By: #### LACDS, TROPI, PRCAL, MYCM #### [facility] [address] [place] [address] 11058 Calcium mass conc7.8 mg/dLLow8.6-10.4[facility] CenterComment on above:Performed By: #### LACDS, TROPI, PRCAL, MYCM #### [facility] [address] [place] [address] 90472 Chloride molar conc99 mmol/HSfvmkp08-145GgybyUniversity Hospitals Parma Medical CenterComment on above:Performed By: #### LACDS, TROPI, PRCAL, MYCM #### [facility] [address] [place] [address] 39564 CO2 molar conc23 mmol/YNviacd12-26CnpqgUniversity Hospitals Parma Medical Center Comment on above:Performed By: #### LACDS, TROPI, PRCAL, MYCM #### [facility] [address] [place] [address] 13932 Creatinine mass conc1.04 mg/dLHigh0.50-0.90[facility] CenterComment on above:Performed By: #### LACDS, TROPI, PRCAL, MYCM #### [facility] [address] [place] [address] 13878 GFR, Amer>60Normal>60[facility] Medical CenterComment on above:Performed By: #### LACDS, TROPI, PRCAL, MYCM #### [facility] [address] [place] [address] 33051 GFR,non Amer59 mL/minLow>60[facility] Comment on above:Performed By: #### LACDS, TROPI, PRCAL, MYCM #### [facility] [address] [place] [address] 77922 Glucose mass omyh999 mg/gAAynh87-97Vsnig [facility] Comment on above:Performed By: #### LACDS, TROPI, PRCAL, MYCM #### [facility] [address] [place] [address] 20750 Potassium molar conc3.8 mmol/LNormal3.7-5.3MPromise Hospital of East Los AngelesComment on above:Performed By: #### LACDS, TROPI, PRCAL, MYCM #### [facility] [address] [place] [address] 89099 Protein mass conc5.8 g/dLLow6.4-8.3[facility] Comment on above:Performed By: #### LACDS, TROPI, PRCAL, MYCM #### [facility] [address] [place] [address] 76811 Sodium molar xkzy562 mmol/DCfe539-660KevoxUniversity Hospitals Parma Medical CenterComment on above:Performed By: #### LACDS, TROPI, PRCAL, MYCM #### [facility] [address] [place] [address] 50657 Urea nitrogen mass conc15 mg/dLNormal6-20[facility] CenterComment on above:Performed By: #### LACDS, TROPI, PRCAL, MYCM #### [facility] [address] [place] [address] 32461 BUN/CRE RatioNOT REPORTEDNormal9-20[facility] Comment on above:Performed By: #### LACDS, TROPI, PRCAL, MYCM #### [facility] [address] [place] [address] Staging:NOT REPORTEDNormalUniversity Hospitals Parma Medical CenterComment on above:Performed By: #### LACDS, TROPI, PRCAL, MYCM #### [address] [address] Magnesiumon 99-15-4889Ugdfgvecn mass conc2.2 mg/dLNormal1.6-2.6 [facility] Parma Medical CenterComment on above:Performed By: #### LACDS, TROPI, PRCAL, MYCM #### [facility] [address] [place] [address] Procalcitoninon 58-03-0797Jefulyo mass conc1.48 ng/mLHigh<0.09University Hospitals Parma Medical CenterComment on above:Result Comment: Suspected Sepsis: [...] entered into the Change in Procalcitonin Calculator (www.rredig-wke-spzgyprifn.Localmint) to determine the patient's Mortality Risk PrognosisPerformed By: #### GRACE MAY PRCAL, MYCM #### [facility] [address] [place] [address] Sedimentation Rateon 29-65-1152Fkxhecohnehpa Rate97 mmHigh0-20University [facility]als Parma Medical CenterComment on above:Performed By: #### GRACE MAY PRCAL, MYCM #### [facility] [address] [place] [address] CBC with Diffon 17-15-0081Fkj. Basophil0.00 k/uLNormal0.00-0.20 [facility] Parma Medical CenterComment on above:Performed By: #### GRACE MAY PRCAL, JAZMYN #### [facility] [address] [place] [address] Abs.Imm.Granulocyte0.11 k/uLNormal0.00-0.30[facility]als Parma Medical CenterComment on above:Performed By: #### GRACE MAY PRCAL, MYCM #### [facility] [address] [place] [address] Abs.Neutrophil (Seg)4.60 k/uLNormal1.50-8.10[facility] Parma Medical CenterComment on above:Performed By: #### GRACE MAY PRCAL, MYCM #### [facility] [address] [place] [address] Basophils/100 WBC (Bld)0 %Normal0-2MPromise Hospital of [facility] Angeles Comment on above:Performed By: #### LACDS, TROPI, PRCAL, MYCM #### [address] [address] Eosinophils #/vol (Bld)0.00 10*3/uLNormal0.00-0.44[facility]als Parma Medical CenterComment on above:Performed By: #### LACDS, TROPI, PRCAL, MYCM #### [facility] [address] [place] [address] Eosinophils/100 WBC (Bld)0 %Low1-4[facility] Comment on above:Performed By: #### LACDS, TROPI, PRCAL, MYCM #### [facility] [address] [place] [address] Immature granulocytes #/vol (Bld)2 %Hwgw8JudhaUniversity Hospitals Parma Medical CenterComment on above:Performed By: #### LACDS, TROPI, PRCAL, MYCM #### [facility] [address] [place] [address]14 Lymphocytes #/vol (Bld)0.67 10*3/uLLow1.10-3.70[facility] Parma Medical CenterComment on above:Performed By: #### LACDS, TROPI, PRCAL, MYCM #### [facility] [address] [place] [address] Lymphocytes/100 WBC (Bld)12 %Dec88-10TziwrUniversity Hospitals Parma Medical CenterComment on above:Performed By: #### LACDS, TROPI, PRCAL, MYCM #### [facility] [address] [place] [address]7 Monocytes #/vol (Bld)0.22 10*3/uLNormal0.10-1.20[facility] Medical CenterComment on above:Performed By: #### LACREY, TROPI, PRCAL, MYCM #### [facility] [address] [place] [address] Monocytes/100 WBC (Bld)4 %Normal3-12[facility] Parma Medical CenterComment on above:Performed By: #### LACDS, TROPI, PRCAL, MYCM #### [facility] [address] [place] [address]990 Morphology Interp Rehan (Bld)ANISOCYTOSIS PRESENTNormalUniversity Hospitals Parma Medical CenterComment on above:Result Comment: INCREASED BANDS PRESENT 1+ TEARDROPSPerformed By: #### LACREY, TROPI, PRCAL, MYCM #### [facility] [address] [place] [address] Neutrophil (Seg)82 %Lhiq58-30BltfzUniversity Hospitals Parma Medical Center Comment on above:Performed By: #### LACREY, TROPI, PRCAL, MYCM #### [facility] [address] [place] [address] Erythrocyte distribution width Ratio (RBC)15.1 %High11.8-14.4[facility] Parma Medical CenterComment on above:Performed By: #### LACDS, TROPI, PRCAL, MYCM #### [facility] [address] [place] [address] Hematocrit Volume Fraction (Bld)34.1 %Low36.3-47.1MPromise Hospital of East Los AngelesComment on above:Performed By: #### LACDS, TROPI, PRCAL, MYCM #### [facility] [address] [place] [address] Hemoglobin mass conc (Bld)10.0 g/dLLow11.9-15.1MercAdventHealth Palm Harbor ERRockleigh Medical CenterComment on above:Performed By: #### LACDS, TROPI, PRCAL, MYCM #### [facility] [address] [place] [address] MCH Entitic mass (RBC)28.7 weBfdnrm76.2-33.5[facility] Parma Medical CenterComment on above:Performed By: #### LACDS, TROPI, PRCAL, MYCM #### [facility] [address] [place] [address] MCHC mass conc (RBC)29.3 g/kGOxyegf07.4-34.8[facility] Parma Medical CenterComment on above:Performed By: #### LACDS, TROPI, PRCAL, MYCM #### [facility] [address] [place] [address] MCV Entitic volume (RBC)98.0 tKGgsarq35.6-102.9[facility] Parma Medical CenterComment on above:Performed By: #### LACDS, TROPI, PRCAL, MYCM #### [place] [address] NRBC Automated0.0 per 100 WBCNormal0.0[facility]als Parma Medical CenterComment on above:Performed By: #### LACDS, TROPI, PRCAL, MYCM #### [place] [address] Platelet mean volume Entitic volume (Bld)11.1 fLNormal8.1-13.5[facility]als Parma Medical CenterComment on above:Performed By: #### LACDS, TROPI, PRCAL, MYCM #### [place] [address] Platelets #/vol (Bld)119 10*3/yBPvy880-792SxnhhUniversity Hospitals Parma Medical CenterComment on above:Performed By: #### LACDS, TROPI, PRCAL, MYCM #### [facility] [address] [place] [address] RBC #/vol (Bld)3.48 10*6/uLLow3.95-5.11[facility] HospitalComment on above:Performed By: #### LACDS, TROPI, PRCAL, MYCM #### [facility] [address] [place] [address] WBC #/vol (Bld)5.6 10*3/uLNormal3.5-11.3[facility] HospitalComment on above:Performed By: #### LACDS, TROPI, PRCAL, MYCM #### [facility] [address] [place] [address] Auto Diff PerformedNOT REPORTEDOhioHealth Shelby HospitalComment on above:Performed By: #### LACDS, TROPI, PRCAL, MYCM #### [facility] [address] [place] [address]68 Platelets #/vol (Bld)NOT REPORTEDOhioHealth Shelby HospitalComment on above:Performed By: #### LACDS, TROPI, PRCAL, MYCM #### [facility] [address] [place] [address]93 RBC morphology finding Nom (Bld)NOT REPORTEDOhioHealth Shelby HospitalComment on above:Performed By: #### LACDS, TROPI, PRCAL, MYCM #### [facility] [address] [place] [address]363 WBC MorphologyNOT REPORTEDOhioHealth Shelby Hospital Comment on above:Performed By: #### LACDS, TROPI, PRCAL, MYCM #### [facility] [address] [place] [address] HEAD WO CONTRASTon 85-69-5182GA HEAD WO CONTRASTEXAMINATION: CT OF THE HEAD [...] Signed by: Erica Angeles MD 08/16/18 Final resultNormalUniversity Hospitals Parma Medical CenterCalcium, Ionicon 08-16-2018 Calcium mass conc0.99 mmol/LLow1.13-1.33[facility] Parma Medical CenterComment on above:Performed By: #### LACDS, TROPI, PRCAL, MYCM #### [facility] [address] [place] [address] Comp Metabolic Pr/rfx MGon 08-16-2018(cont.)NormalUniversity Hospitals Parma Medical CenterComment on above:Result Comment: Average GFR for 30-39 years old: 107 mL/min/1.73sq m Chronic Kidney Disease: <60 mL/min/1.73sq m Kidney failure: <15 mL/min/1.73sq m eGFR calculated using average adult body mass. Additional eGFR calculator available at: http://www.Solartrec.com/multiple_crcl_2012.htmPerformed By: #### PT, CMPX, MG, CDP #### [facility] [place] [address] Albumin mass conc2.3 g/dLLow3.5-5.2[facility] Comment on above:Performed By: #### PT, CMPX, MG, CDP #### [facility] [address] [place] [address] Albumin/Globulin mass ratio0.7 {ratio}Low1.0-2.5[facility] Parma Medical CenterComment on above:Performed By: #### PT, CMPX, MG, CDP #### [facility] [address] [place] [address] Alkaline Phos67 U/LAjndcr89-120QtyknUniversity Hospitals Parma Medical Center Comment on above:Performed By: #### PT, CMPX, MG, CDP #### [facility] [address] [place] [address]1178 ALT enzyme act/vol33 U/LNormal5-33[facility] Comment on above:Performed By: #### PT, CMPX, MG, CDP #### [facility] [address] [place] [address] Anion gap molar conc11 mmol/LNormal9-17[facility] Parma Medical CenterComment on above:Performed By: #### PT, CMPX, MG, CDP #### [facility] [address] [place] [address]90 AST enzyme act/vol41 U/LHigh<32[facility] Comment on above:Performed By: #### PT, CMPX, MG, CDP #### [facility] [address] [place] [address] Bilirubin Ql (U)0.40 mg/dLNormal0.3-1.2MPromise Hospital of East Los AngelesComment on above:Performed By: #### PT, CMPX, MG, CDP #### [facility] [address] [place] [address] Calcium mass conc7.3 mg/dLLow8.6-10.4[facility] Medical CenterComment on above:Performed By: #### PT, CMPX, MG, CDP #### [facility] [address] [place] [address] Chloride molar vxsl724 mmol/FTtaouo40-543ZaggoUniversity Hospitals Parma Medical CenterComment on above:Performed By: #### PT, CMPX, MG, CDP #### [facility] [address] [place] [address]294 CO2 molar conc18 mmol/ONpy08-76FysusUniversity Hospitals Parma Medical Center Comment on above:Performed By: #### PT, CMPX, MG, CDP #### [facility] CenterFast[facility] [address] [place] [address] Creatinine mass conc1.09 mg/dLHigh0.50-0.90[facility] Medical CenterComment on above:Performed By: #### PT, CMPX, MG, CDP #### [facility] [address] [place] [address] GFR, Amer>60Normal>60[facility] Medical CenterComment on above:Performed By: #### PT, CMPX, MG, CDP #### [facility] CenterFast[facility] [address] [place] [address] GFR,non Amer56 mL/minLow>60[facility] Comment on above:Performed By: #### PT, CMPX, MG, CDP #### [facility] CenterFast[facility] [address] [place] [address]38 Glucose mass rqdj148 mg/mHVofu31-15PsibvPromise Hospital of [facility] [place] Comment on above:Performed By: #### PT, CMPX, MG, CDP #### [facility] CenterFast[facility] [address] [place] [address]73 Potassium molar conc3.6 mmol/LLow3.7-5.3MPromise Hospital of East Los AngelesComment on above:Performed By: #### PT, CMPX, MG, CDP #### [facility] CenterFast[facility] [address] [place] [address]50 Protein mass conc5.5 g/dLLow6.4-8.3MPromise Hospital of [facility] [place] Comment on above:Performed By: #### PT, CMPX, MG, CDP #### [facility] [address] [place] [address]009 Sodium molar nwsa639 mmol/GDot434-532XhbcdUniversity Hospitals Parma Medical CenterComment on above:Performed By: #### PT, CMPX, MG, CDP #### [facility] [address] [place] [address]54 Urea nitrogen mass conc17 mg/dLNormal6-20[facility] Medical CenterComment on above:Performed By: #### PT, CMPX, MG, CDP #### [facility] [address] [place] [address]234 BUN/CRE RatioNOT REPORTEDNoal9-20[facility] Comment on above:Performed By: #### PT, CMPX, MG, CDP #### [facility] [address] [place] [address]67 Staging:NOT REPORTEDNormalUniversity Hospitals Parma Medical CenterComment on above:Performed By: #### PT, CMPX, MG, CDP #### [facility] [address] [place] [address]208 Lactic Acid,Whole Blon 13-48-8291Wtfrhl Acid,Whole Bl1.2 mmol/L Normal0.7-2.1MPromise Hospital of East Los AngelesComment on above:Performed By: #### LACDS, TROPI, PRCAL, MYCM #### [facility] [address] [place] [address]80 Lactic Acid,Whole Bl1.2 mmol/LNormal0.7-2.1[facility] HospitalComment on above:Performed By: #### LACWB #### [address] [address] Magnesiumon 53-68-1511Eangquiex mass conc2.0 mg/dLNormal1.6-2.6 [facility] Medical CenterComment on above:Performed By: #### LACDS, TROPI, PRCAL, MYCM #### [address] [address] Mycoplasma Ab,IgMon 17-72-6448Qdfqbgesto Ab,IgM0.22Normal<0.91[facility] Parma Medical CenterComment on above:Result Comment: Reference Range: <=0.90 Negative 0.91-1.09 Equivocal >=1.10 PositivePerformed By: #### LACDS, TROPI, PRCAL, MYCM #### [address] [address] PTon 77-05-8235YHJ Coag RelTime (PPP)1.0 {INR}NormalUniversity Hospitals Parma Medical CenterComment on above:Result Comment: Therapeutic Range: Moderate Anticoagulant Intensity: INR = 2.0-3.0 High Anticoagulant Intensity: INR = 2.5-3.5Performed By: #### PT, CMPX, MG, CDP #### [address] [address] Prothrombin time (PT) Coag time (PPP)11.0 sNormal9.0-12.0[facility] Medical CenterComment on above:Performed By: #### PT, CMPX, MG, CDP #### [address] [address] Troponinon 44-56-3379Jnddtlpw I.cardiac mass concNormalUniversity Hospitals Parma Medical CenterComment on above:Result Comment: Reference Range: [...] information for diagnosis.Performed By: #### TROPI #### [address] [address] Troponin I.cardiac mass concng/mLNormal<0.03[facility] Medical CenterComment on above:Result Comment: Troponin T results cannot be compared to Troponin-I results.Performed By: #### TROPI #### [address] [address] XR CHEST (2 VW)on 74-27-5351EE CHEST (2 VW)EXAMINATION: TWO VIEWS OF THE [...] Signed by: Noe Mitchell MD 08/16/18 Final resultNormalMerDowney Regional Medical CenterLactate, Sepsison 08-15-2018 Lactic Acid,Sep Wbld3.5 mmol/LHigh0.5-1.9[facility] CenterComment on above:Performed By: #### LACDS, TROPI, PRCAL, MYCM #### [address] [address] Lactic Acid, SepsisNOT REPORTEDNormal0.5-1.9[facility] Medical CenterComment on above:Performed By: #### LACDS, TROPI, PRCAL, MYCM #### [address] [address] Legionella Ag, Uron 35-45-8479Oiwteegvma Ag, UrSpecimen Description .CLEAN CATCH URINE Special [...] levels of this test. Report Status FINAL 08/15/2018NoDiley Ridge Medical CenterComment on above:Performed By: #### ULAG #### [facility] [address] [place] [address]383 Procalcitoninon 50-50-8102Psidahb mass conc3.39 ng/mLHigh<0.09[facility] Medical CenterComment on above:Result Comment: Suspected Sepsis: [...] entered into the Change in Procalcitonin Calculator (www.pciinu-jfl-kboslvllpd.Localmint) to determine the patient's Mortality Risk PrognosisPerformed By: #### LACDS, TROPI, PRCAL, MYCM #### [facility] [place], [place] [address] Strep pneum Ag,CSF/Uron 14-01-2860Mqdtu pneum Ag,CSF/UrSpecimen Description .CLEAN CATCH URINE Special Requests NOT REPORTED Direct Exam NEGATIVE: Strep pneumoniae antigen not detected Report Status FINAL 08/15/2018Ohio[facility] Shelby HospitalComment on above:Performed By: #### SPAG #### [facility] [address] [place] [address] [id number] Troponinon 32-98-6279Dednuepm I.cardiac mass concng/mLNormal<0.03 [facility] Medical CenterComment on above:Result Comment: Troponin T results cannot be compared to Troponin-I results.Performed By: #### LACDS, TROPI, PRCAL, MYCM #### [facility] [address] [place], [place] [id number] Troponin I.cardiac mass concNormalMercy [facility] Comment on above:Result Comment: Reference Range: [...] By: #### LACDS, TROPI, PRCAL, MYCM #### [facility] [address] [place], [place] [address] Urinalysison 77-73-8273Jswqoxwaw, UrineNegativeInvalid Interpretation CodeNEG;NEGATIVEKETTERING HEALTH BEHAVIORAL MEDICAL CENTERBlood, UrineModerate AbnormalNEG;NEGATIVEKETTERING HEALTH BEHAVIORAL MEDICAL CENTERInterpretation and review of laboratory resultsAbnormalInvalid Interpretation CodeKETTERING HEALTH BEHAVIORAL MEDICAL CENTERNitrite, UrineNegativeInvalid Interpretation CodeNEG;NEGATIVEKETTERING HEALTH BEHAVIORAL MEDICAL CENTERProtein, UrineNegativeInvalid Interpretation CodeNEG;NEGATIVE mg/dLKETTERING HEALTH BEHAVIORAL MEDICAL CENTERRBCs, Urine1 /HPFInvalid Interpretation Code0 - 5[facility] HOSPITALquamous Epithelial< 1Invalid Interpretation Code0 - 40 /HPFProtestant Deaconess Hospital, bacteria in sedimentRare Invalid Interpretation CodeNS;RARE /HPFKETTERING HEALTH BEHAVIORAL MEDICAL CENTERUrine, characterHazyInvalid Interpretation CodeProtestant Deaconess Hospital, colorYellowInvalid Interpretation CodeProtestant Deaconess Hospital, glucose presenceNegativeInvalid Interpretation CodeNEG;NEGATIVE mg/dLProtestant Deaconess Hospital, ketones presenceNegativeInvalid Interpretation Code NEG;NEGATIVE mg/dLKETTERING HEALTH BEHAVIORAL MEDICAL CENTERUrine, leukocyte esterase presenceSmallAbnormalNegativeKETTERING HEALTH BEHAVIORAL MEDICAL CENTERUrine, pH6.0 [pH] Invalid Interpretation Code4.5 - 8.0K[facility]ING HEALTH BEHAVIORAL MEDICAL CENTERUrine, specific gravity1.014 1Invalid Interpretation Code1.003 - 1.029KETTERING HEALTH BEHAVIORAL MEDICAL CENTERUrobilinogen, Urine< 2.0Invalid Interpretation Code<2 mg/dLKETTERING HEALTH BEHAVIORAL MEDICAL CENTERWBCs, Urine6 /HPFHigh0 - 5K[facility] BEHAVIORAL MEDICAL CENTERCBC and Differentialon 51-62-9313Fjwqdlogb7.7 %Invalid Interpretation CodeKETTERING HEALTH BEHAVIORAL MEDICAL CENTERBasophils0.1 K/mcLInvalid Interpretation Code0 - 0.2K[facility] BEHAVIORAL MEDICAL CENTEREosinophils0.2 K/mcLInvalid Interpretation Code0 - 0.5 [facility]AV[facility] MEDICAL CENTERErythrocytes (RBC)3.97 M/mcLInvalid Interpretation Code3.7 - 5.0KETTER[facility] BEHAVIORAL MEDICAL CENTERHematocrit (HCT)35.7 %Invalid Interpretation Code34.4 - 44.8 %[facility]AVIOR[facility] MEDICAL CENTERHemoglobin (HGB) 12.2 g/dLInvalid Interpretation Code11.6 - 15.4 g/dLKETTERING HEALTH BEHAVIORAL MEDICAL CENTERInterpretation and review of laboratory resultsAbnormalInvalid Interpretation CodeKETTERING HEALTH BEHAVIORAL MEDICAL CENTERLymphocytes2.1 K/mcLInvalid Interpretation Code1.0 - 3.7[facility] HOSPITALH30.6 pgInvalid Interpretation Code27.9 - 33.9 pgKETTERING HEALTH BEHAVIORAL MEDICAL CENTERMCHC34.0 g/dL Invalid Interpretation Code33.1 - 35.1 g/dLKETTERING HEALTH BEHAVIORAL MEDICAL CENTERMCV89.8 fLInvalid Interpretation Code82.6 - 98.9[facility]IOR[facility] MEDICAL CENTERMonocytes 0.6 K/mcLInvalid Interpretation Code0.1 - 0.6[facility] Neutrophils6.6 K/mcLInvalid Interpretation Code1.2 - 6.9[facility] MEDICAL CENTERPlatelet mean volume (PMV)8.6 fLInvalid Interpretation Code7.0 - 10.6 [facility] CENTERPlatelets196 K/mcLInvalid Interpretation Yrcw738 - 402OHMERCY HEALTH URBANA HOSPITALRDW-CA15.0 %High10 - 14.4 %[facility]CY HOSPITALegmented Neut69.6 %Invalid Interpretation CodeCARL [place]IL[place] [address] suppressor/100 cells1.8 10*3/uLInvalid Interpretation CodeCARL [place]ILLE [address] suppressor/100 cells21.8 10*3/uLInvalid Interpretation Code [place] [address] suppressor/100 cells6.1 10*3/uLInvalid Interpretation CodeKETTERING HEALTH BEHAVIORAL MEDICAL CENTERWBC (Leukocytes)9.5 K/mcLInvalid Interpretation Code3.4 - 10.6K[facility]IORAL MEDICAL CENTERComprehensive Metabolic Panelon 41-29-5664Rwbclic aminotransferase (ALT)18 U/LInvalid Interpretation Code14 - 65 U/[facility] CENTERAlbumin3.1 g/dLLow3.2 - 5.2 g/dLKETTERING HEALTH BEHAVIORAL MEDICAL CENTERAlkaline phosphatase (ALP)78 U/LInvalid Interpretation Code40 - 140 U/[facility] CENTERAspartate aminotransferase (AST)7 U/LInvalid Interpretation Code0 - 45 U/[facility] CENTERCalcium8.6 mg/dLInvalid Interpretation Code8.4 - 10.2 mg/dL [facility] CENTERChloride106 mmol/LInvalid Interpretation Code98 - 108 mmol/[facility]ENTERCO227 mmol/LInvalid Interpretation Code21 - 32 mmol/[facility] CENTERCreatinine1.13 mg/dLHigh0.4 - 1.1 mg/dL [facility] CENTEReGFR (black)mL/min/{1.73_m2}Invalid Interpretation Codeml/min/1.73sq.[facility] Health Barberton CampuseGFR (non-black)54 mL/min/{1.73_m2}Low>60[facility] MEDICAL CENTERGlucose113 mg/eGWutz32 - 99 mg/dLKETTERING HEALTH BEHAVIORAL MEDICAL CENTERInterpretation and review of laboratory resultsAbnormalInvalid Interpretation CodeKETTERING HEALTH BEHAVIORAL MEDICAL CENTERPotassium 3.7 mmol/LInvalid Interpretation Code3.5 - 5.1 mmol/[facility]ENTERProtein6.8 g/dLInvalid Interpretation Code6 - 8 g/dLCLEVELAND CLINIC MERCY HOSPITALodium140 mmol/LInvalid Interpretation Fcxj598 - 145 mmol/[facility] CENTERUrea mg/dLInvalid Interpretation Code8 - 25 mg/dL [facility] CENTERUrine, bilirubin presence0.4 mg/dLInvalid Interpretation Code0.3 - 1.2 mg/dLKETTERING HEALTH BEHAVIORAL MEDICAL CENTERLipaseon 10-90-1548Arntdc093 U/LInvalid Interpretation Code73 - 393 U/[facility] Vital Signs Date TimeVital SignValuePerforming JaiadsgxoBatoypcf41-83-2959 11:47-0400Body tryjuj814.5 cmJennie Van ACCOUNTING POLICY CONSULTANT-RISK MODELER Work Phone: [place] [phone] 11:47-0400Body mass index (BMI) [Ratio]38.41 kg/g2EyisovpJennie Van ACCOUNTING POLICY CONSULTANT-RISK MODELER Work Phone: [place] [phone] 11:47-0400Body gauckk81.25 kgJecarlos Van ACCOUNTING POLICY CONSULTANT-RISK MODELER Work Phone: [place] [phone] 11:47-0400Diastolic blood mm[Hg]Jennie Van ACCOUNTING POLICY CONSULTANT-RISK MODELER Work Phone: [place] [phone] 11:47-0400Respiratory rate18 /minJesssandeep Van ACCOUNTING POLICY CONSULTANT-RISK MODELER Work Phone: [place] [phone] 11:47-2192QpG6% (BldA) [Mass fraction]98 %Jennie Vna ACCOUNTING POLICY CONSULTANT-RISK MODELER Work Phone: [place] [phone] 11:47-0400Systolic blood nhtrfqxa808 mm[Hg]Jennie Van ACCOUNTING POLICY CONSULTANT-RISK MODELER Work Phone: [facility] HospitalKzzsfmzvum94-77-4202 12:32-0400Body rvuftj279.5 Bihristophmichael Sánchez DPM Work Phone: [facility] HospitalWmgybpnpxl63-13-1580 12:32-0400Body mass index (BMI) [Ratio]38.41 kg/k9Jdimwucmqsu Bohach DPM Work Phone: [facility] HospitalRbhzexbmov85-11-5743 12:32-0400Body iolxst38.25 kgChristopher Bohach DPM Work Phone: [facility] HospitalEnizbzwsfr01-21-8873 12:32-0400Diastolic blood rcaslqao13 mm[Hg]Christopher Bohach DPM Work Phone: [facility] HospitalTatozukhpi82-06-1993 12:32-0400Heart ssqk401 /min Christopher Bohach DPM Work Phone: [facility] HospitalJmzfiefqan76-73-1209 12:32-0400Systolic blood zcscvdaj587 mm[Hg]Christopher Bohach DPM Work Phone: [facility] HospitalBjfqewuerr62-98-8907 16:21-0400Body pelpev744.5 cmChristopher Bohach DPM Work Phone: [facility] HospitalFzckldbizz29-15-7723 16:21-0400Body mass index (BMI) [Ratio]38.41 kg/r2Ulpmswhjjpm Bohach DPM Work Phone: [facility] HospitalVilbytlfyr41-48-1281 16:21-0400Body ciprgi07.25 kgChristopher Bohach DPM Work Phone: [facility] HospitalJijwqqjwgz99-56-2528 16:21-0400Diastolic blood tjptrlbu17 mm[Hg]Christopher Bohach DPM Work Phone: [facility] HospitalXvcujqeqlu28-96-1212 16:21-0400Heart rate89 /min Christopher Bohach DPM Work Phone: [facility] HospitalTamrqvxnri00-30-2251 16:21-0400Systolic blood uvjeursx017 mm[Hg]Christopher Bohach DPM Work Phone: [facility] HospitalOiacfdlpyf33-36-2664 23:15-0400Diastolic blood ndezjyzl64 mm[Hg]Severo Case MD Work Phone: [phone] [facility] CenterPing Identity Corporation [facility] CenterUspsiq65-90-6098 23:15-0400Heart rate74 /minSevero Case MD Work Phone: [phone] [facility] CenterPing [employer] Corporation [facility] CenterCncsuk88-75-1068 23:15-0400 Respiratory rate16 /minSevero Case MD Work Phone: [phone] [facility]07-01-2025 23:15-2698QuN1% (BldA) [Mass fraction]97 %Severo Case MD Work Phone: [phone] [facility]07-01-2025 23:15-0400Systolic blood uadeloke954 mm[Hg]Severo Case MD Work Phone: [phone]07-01-2025 21:24-0400Body vgimlo643.4 cmSevero Case MD Work Phone: [phone] [facility]07-01-2025 21:24-0400Body mass index (BMI) [Ratio]41.99 kg/l5EcbjdpSevero Case MD Work Phone: [phone] [facility] CenterPing Identity Corporation [facility] CenterFbzjmt15-21-2365 21:24-0400Body nrxwfi88.52 kgSevero Case MD Work Phone: [phone]07-01-2025 21:15-0400Body dhigtjeqoqa43 [degF]Severo Case MD Work Phone: [phone]06-10-2025 12:02-0400Body .5 cmLynn Block MD Work Phone: [facility] HospitalSteckwjcba36-28-7860 12:02-0400Body mass index (BMI) [Ratio]38.41 kg/m2Lynn Block MD Work Phone: [facility] HospitalFxeokahnvd42-23-2076 12:02-0400Body qwidix22.25 kgLynn Block MD Work Phone: [phone] [place], [place] [address]Kkfvlctgio81-96-4951 13:00-0500Body jyzakf311.5 cmLynn Block MD Work Phone: [facility] HospitalIavguhgxhk45-32-0073 13:00-0500Body mass index (BMI) [Ratio]38.41 kg/m2Lynn Block MD Work Phone: [facility] HospitalZddrldbtit47-07-1153 13:00-0500Body kgoidh81.25 kgLynn Block MD Work Phone: 1(162)088-[address] [place], [place] [address]Sujepzriar24-73-3841 11:31-0500Body .5 cmFealli Yusra PERMASTONE MECHANIC Work Phone: [phone])704-[address] [place], [place] [address]Nfscezgjbt78-25-1189 11:31-0500Body mass index (BMI) [Ratio]37.9 kg/u9Fnspfwb Megannagel PERMASTONE MECHANIC Work Phone: [phone])674-[address] [place], [place] [address]Vbcczatcwk31-15-2301 11:31-0500Body ddoxiq52.98 kgFemadelynia Megannagel PERMASTONE MECHANIC Work Phone: [phone] [place], [place] [address]Cajjzblyrm57-70-5067 11:31-0500Diastolic blood gticoict40 mm[Hg]Fozia Megannagel PERMASTONE MECHANIC Work Phone: [phone])256-[address] [place], [place] [address]Oyqfrrgcmw98-28-2651 11:31-0500Systolic blood oehgqxek000 mm[Hg]Fozia Megannagel PERMASTONE MECHANIC Work Phone: [phone] [place], [place] [address]Mathlfmwzn55-52-5531 09:42-0500Body ryvwru052.5 Jimmy Adair MD Work Phone: 1(104) [phone]zyyhj84-04-7223 09:42-0500Body mass index (BMI) [Ratio]38.23 kg/m2Dimas Adair MD Work Phone: 1(375) [phone]hdhlo04-76-4102 09:42-0500Body lircxrjkepg69.29 [degF]Dimas Adair MD Work Phone: 1(139) [phone]kwrxx22-72-3445 09:42-0500Body wboyyy98.8 kgDimas Adair MD Work Phone: 1(552) [phone]pmzuh50-86-0627 11:30-0500Body .5 cm Fozia Meng PERMASTONE MECHANIC Work Phone: [facility] HospitalRvglfgovea34-18-1400 11:30-0500Body mass index (BMI) [Ratio]39.91 kg/v2JniofmzFozia Meng PERMASTONE MECHANIC Work Phone: [facility] HospitalKawtnpapro98-15-6833 11:30-0500Body .97 kgFozia Meng PERMASTONE MECHANIC Work Phone: [facility] HospitalZgvlgnvrvl32-80-6891 11:30-0500Diastolic blood mm[Hg]Fozia Meng PERMASTONE MECHANIC Work Phone: [facility] HospitalDbnrhzeyip69-16-1408 11:30-0500Systolic blood dnaltlqp890 mm[Hg]Fozia Meng PERMASTONE MECHANIC Work Phone: [facility] HospitalQggtkwetjg64-20-2081 10:09-0400Body evnsid248.5 cmTrace Casas MD Work Phone: [facility] HospitalFojtszqftd46-84-2207 10:09-0400Body mass index (BMI) [Ratio]38.96 kg/i2IdsybojTrace Casas MD Work Phone: [facility] HospitalWzueldikxt00-35-3786 10:09-0400Body .62 kgTrace Casas MD Work Phone: [facility] HospitalLqqohkzpqz68-31-9458 10:09-0400Diastolic blood ugsererp67 mm[Hg]Trace Casas MD Work Phone: [facility] HospitalImdmkmsljb62-81-6076 10:09-0400Systolic blood oajxktxk142 mm[Hg]Trace Casas MD Work Phone: [facility] HospitalLcsyoprhkl27-22-1691 14:20-0400Body rywkff234.5 cmNicole Ginger DO Work Phone: NOS[facility] HospitalFjwzluvkuh60-80-0851 14:20-0400Body mass index (BMI) [Ratio]38.41 kg/b6Btrfyi Ginger DO Work Phone: NOS[facility] HospitalGylavseqgz82-16-0714 14:20-0400Body lswoje30.25 kgNicole Ginger DO Work Phone: NOS[facility] HospitalXihlhvggkw55-80-1670 14:20-0400Diastolic blood eyedyjgw03 mm[Hg]Cheryl Ginger DO Work Phone: NOS[facility] HospitalBftcwkzmel68-88-9909 14:20-0400Heart rate83 /min Cheryl Ginger DO Work Phone: NOS[facility] HospitalUdibsqcpzn45-46-6360 14:20-7662ScV6% (BldA) [Mass fraction]97 %Cheryl Ginger DO Work Phone: noS[facility] HospitalUwarrtvxpm75-03-2427 14:20-0400Systolic blood yidvpasq103 mm[Hg]Cheryl Ginger DO Work Phone: [facility] HospitalDtewpwynli52-41-7289 14:44-0400Body temperature 98.49 [degF]MASSIMO Shook DPM Work Phone: [phone]) [phone]akuwk85-92-0242 14:44-0400Diastolic blood vgwxgnon76 mm[Hg]MASSIMO Shook DPM Work Phone: 1(374) [phone]kqncs58-17-4623 14:44-0400Heart rate94 /minMASSIMO Shook DPM Work Phone: 1(969) [phone]jivpv75-57-2917 14:44-0400Systolic blood pressure 139 mm[Hg]MASSIMO Shook DPM Work Phone: 1(884) [phone]temli56-31-2632 09:36-0400Body lhvium360.5 cmMwhz Education Work Phone: bon [employer]09-28-2022 09:36-0400Body mass index (BMI) [Ratio]38.67 kg/m2Mwhz Education Work Phone: bon [employer]09-28-2022 09:36-0400Body nsastb79.89 kgMwhz Education Work Phone: bon [facility]12-13-2020 20:53-0500BMI (Body Mass Index)39.32 kg/f8SkywzvtaupnL[place], [place]12-[place]-2020 20:53-0500Body Byeojqutmmp45.5 [degF][place] 09-16-2020 20:53-0500Body hvtysc07.52 kgL[place], [place] 09-16-2020 20:53-0500BP Uttwpvxwx459 mm[Hg][place] 09-16-2020 20:53-0500BP Msdtpmip661 mm[Hg][place] 09-16-2020 20:53-8063Ymcmzr055.5 [place] 09-16-2020 20:53-0500Pulse (Heart Rate)99 /minL[place], [place]12-[place]-2020 20:53-0500Pulse Fxfednxg58 %[place] 09-16-2020 20:53-0500Respiratory Rate18 /minNorthern [facility] [place] Encounters Encounter DateEncounter TypeCare ProviderFacilityStart: 08-02-2025 End: 12-99-8082ngovawwphzGRPPORegency Hospital Cleveland Easttart: 08-02-2025 End: 04-44-4582Ilgybukmda hospital visit by physicianKaleida Healthuzair Laboratory Schedule [facility] LaboratoryComment on above:Stage 3a chronic kidney disease (HCC); Pre-diabetesStart: 07-29-2025 End: 03-07-6396TyefgyHxphfhzldzSara Allen NP Work Phone: [facility] NeurologyComment on above:Idiopathic progressive polyneuropathy; Non-seasonal allergic rhinitis due to pollenStart: 07-21-2025 End: 93-44-5450ytnryubwkxXHWVBBHVCarolina Center for Behavioral Healthtart: 07-21-2025 End: 54-92-4593Tlrecooqhc hospital [facility] by [facility]St[facility] Laboratory Schedule [facility] LaboratoryComment on above:ArrivedStart: 06-12-2025 End: 01-27-4468wlokphntkpAQSZGGFSXF MILLERMercy Willard HospitalStart: 06-12-2025 End: 91-60-5556Kpkqckpxaq hospital visit by physicianKendall Laboratory Schedule MWHZ LaboratoryComment on above:ArrivedStart: 05-24-2025 End: 18-65-7341Fgiqmq [employer] SoftwareheetHawaii Biotech ACCOUNTING POLICY CONSULTANT-RISK MODELER Work Phone: noms NEUROLOGYStart: 05-24-2025 End: 62-17-8666Tfwxyr Lodo SoftwareheetHawaii Biotech ACCOUNTING POLICY CONSULTANT-RISK MODELER Work Phone: noms NEUROLOGYStart: 05-24-2025 End: 57-37-4525gxkaekihvdUGYHSAV SPRINGERSaint Luke'S Hospital AvailableStart: 05-24-2025 End: 45-68-4690Qmepic outpatient visit 25 minutesJeAquafadas ACCOUNTING POLICY CONSULTANTThreat Stack Work Phone: noms Brenda NeurologyComment on above:BUCK (obstructive sleep apnea) (Primary Dx); Cervical paraspinal muscle spasm; Cervical radiculopathyStart: 05-23-2025 End: 19-76-8703Uuiresqla encounterMark Trista Block MD Work Phone: noms [facility] 111Start: 05-15-2025 End: 92-68-8764rqihlrbvnqSLAFK D Blue Mountain Hospitaltart: 05-15-2025 End: 40-02-9518Jlbfxnhulk hospital visit by physicianKendall Laboratory Schedule M[facility] LaboratoryComment on above:ArrivedStart: 04-20-2025 End: 84-95-1176Hjpdva flowsTeresa Sánchez DPM Work Phone: noms WWW PODIATRYStart: 04-20-2025 End: 23-29-8533Yipfuzame Sánchez DPM Work Phone: noms WWW PODIATRYStart: 04-20-2025 End: 95-85-2589Bmgklv outpatient visit 25 minutesRobbin Sánchez DPM Work Phone: noms [facility] PODIATRYComment on above:MRSA (methicillin resistant staph aureus) culture positive (Primary Dx); Right foot pain; Skin ulcer of toe of right foot with fat layer exposed (HCC); Idiopathic progressive polyneuropathy; Infection of toe; Charcot arthropathy of midfoot; Ulcer of left foot, limited to breakdown of skin (HCC); Closed nondisplaced fracture of second metatarsal bone of right foot, initial encounterStart: 04-20-2025 End: 51-33-7670uqkolrmkroMYGDUHYGDIT J BOHACHNot AvailableStart: 04-14-2025 End: 85-70-5899lekbtdkkwcZXZYBDank Powell HospitalStart: 04-14-2025 End: 37-85-0639Dcbcmmjqar hospital visit by Paola Adam MD Work Phone: mZ LaboratoryComment on above:Hyperglycemia; Mixed hyperlipidemia; Chronic renal impairment, stage 3a ([facility])Start: 04-12-2025 End: 72-17-9781Bgqfghatm Result EncounterChriskyle Sánchez DPM Work Phone: noms External Department UnsolicitedStart: 04-12-2025 End: 78-29-7571Hhejtlzyj Result EncounterChjorge Sánchez DPM Work Phone: noms External Department UnsolicitedStart: 04-11-2025 End: 32-37-7757Eamhzsjhk Result EncounterChjorge Sánchez DPM Work Phone: noms External Department UnsolicitedStart: 04-11-2025 End: 24-64-7185Aweoeddze Result EncounterChriskyle Sánchez DPM Work Phone: noms External Department UnsolicitedStart: 04-11-2025 End: 71-74-9703idwweiodbqREWKEPZCCQKWiley Powell HospitalStart: 04-11-2025 End: 84-24-5668Zumzlxoijo hospital visit by Anisha Sánchez DPM Work Phone: [facility] HospitalComment on above:Pain in right footStart: 04-06-2025 End: 86-82-0171Imufvt outpatient visit 25 minutesChjorge Sánchez DPM Work Phone: noms WWW PODIATRYComment on above:Right foot pain (Primary Dx); Skin ulcer of toe of right foot with fat layer exposed (HCC); Infection of toe; Idiopathic progressive polyneuropathy; Generalized edemaStart: 04-06-2025 End: 29-20-5770tqcxdilrwyQSYLBKYAEKP J BOHACHNot AvailableStart: 04-06-2025 End: 82-02-2984Xegwnd flowsTeresa Sánchez DPM Work Phone: noms WWW PODIATRYStart: 04-06-2025 End: 47-79-1193Hirbko Batsheva Sánchez DPM Work Phone: noms WWW PODIATRYStart: 04-04-2025 End: 25-70-2290Jprpftlvu department patient visitSevero Case MD Work Phone: [facility] Emergency DepartmentComment on above: Pressure injury of deep tissue of toe, unspecified laterality (Primary Dx)Start: 03-14-2025 End: 04-63-9072Nohkxfame Block MD Work Phone: noms NEUROLOGYStart: 03-14-2025 End: 32-45-1392Ehajxpame Block MD Work Phone: noms NEUROLOGYStart: 03-14-2025 End: 03-16-4312Yqlyxt outpatient visit 25 minutesLynn Block MD Work Phone: noms SWS NEUR BComment on above:BUCK (obstructive sleep apnea) (Primary Dx); Claustrophobia ; HypersomniaStart: 03-14-2025 End: 44-90-6428lpfxjebxnjBEDA D BEJNot AvailableStart: 02-15-2025 End: 94-76-6245cfafwtnlnzWSNHJ [facility] [place] Campustart: 02-15-2025 End: 87-80-4891Hulxmvmjoa hospital visit by Paola Adam MD Work Phone: [place] MammographyComment on above: Encounter for screening mammogram for malignant neoplasm of breastStart: 25-83-5861evoqjoyrlsGsoqbwht:FTMCStart: 02-13-2025 End: 25-97-5154Eckvsd Therese Casas MD Work Phone: noms NEUROLOGYStart: 02-13-2025 End: 14-34-1625Wdvhzc Therese Casas MD Work Phone: noms NEUROLOGYStart: 02-13-2025 End: 19-41-2811kwmxmlksilDUQVGAL W BAUERNot AvailableStart: 02-13-2025 End: 76-08-4542Jugiho outpatient visit 25 minutesTrace Casas MD Work Phone: noms SWS NEURComment on above:Charcot's joint, left ankle and foot (Primary Dx); Gait instability; Idiopathic progressive polyneuropathy; Intractable 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 (CMS/HCC); Restless legs; Carpal tunnel syndrome, bilateral; BUCK (obstructive sleep apnea)Start: 12-06-2024 End: 13-87-3405Wapifm Magen Block MD Work Phone: noms NEUROLOGYStart: 12-06-2024 End: 77-22-1401Nlidar Magen Block MD Work Phone: noms NEUROLOGYStart: 12-06-2024 End: 93-99-8150gnbqsekhugYHJF D BEJNot AvailableStart: 12-06-2024 End: 65-61-1479Btzjgd outpatient new 60 minutesLynn Block MD Work Phone: noms SWS NEUR BComment on above:BUCK (obstructive sleep apnea) (Primary Dx); BUCK on CPAP; Claustrophobia (CMS/HCC)Start: 11-14-2024 End: 55-01-7558Ssgnsf flowsheetFelicia C Windnagel PERMASTONE MECHANIC Work Phone: noms BM NEUROLOGYStart: 11-14-2024 End: 77-69-8926Eozfud flowsheetFelicia C Windnagel PERMASTONE MECHANIC Work Phone: noms BM NEUROLOGYStart: 11-14-2024 End: 04-07-9561Slnpxk outpatient visit 25 minutesFelicia Jamila Guzmannagel PERMASTONE MECHANIC Work Phone: noms SWS NEURComment on above:BUCK on CPAP (Primary Dx); Idiopathic progressive polyneuropathy; Restless legs; Intractable 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 (CMS/HCC) Start: 11-14-2024 End: 16-27-0578ajyjtpcpsyMVQNVJE C JAIMEEGELNot AvailableStart: 11-14-2024 End: 85-41-2741ffctnrjquyLXPAH BACKMercy Health Perrysburg Hospitaltart: 11-14-2024 End: 15-84-4029Uftwixcqia hospital visit by Paola Adam MD Work Phone: mZ LaboratoryComment on above:Pre-diabetes; Mixed hyperlipidemiaStart: 11-02-2024 End: 85-73-7413Iebkwmewh encounterJanel Allen PERMASTONE MECHANIC Work Phone: noms [facility] NEURO 210Start: 10-11-2024 End: 25-02-7369Uzmlgo outpatient new 45 minutesBilrubens Adam MD Work Phone: [facility] Throat PhysiciansComment on above:Thyroid nodule (Primary Dx); Lipoma of neckStart: 10-11-2024 End: 08-11-4217ylpiqtbqqmQJNAN BACKOhio Health AmbulatoryStart: 10-05-2024 End: 86-21-7226WwnppcGqvfbqy W Bauer MD Work Phone: noms SWS NEURComment on above:Idiopathic progressive polyneuropathy; Non-seasonal allergic rhinitis due to pollenStart: 09-14-2024 End: 73-02-2659Tawoho flowsheetFelicia C Megannashena PERMASTONE MECHANIC Work Phone: noms BM NEUROLOGYStart: 09-14-2024 End: 12-29-5395Zannad flowsheetFemadelynia Jamila Meng PERMASTONE MECHANIC Work Phone: noms BM NEUROLOGYStart: 09-14-2024 End: 81-56-2795Jdddrszhs encounterFelicvirgen Meng PERMASTONE MECHANIC Work Phone: noms [facility] NEURO 210Start: 09-14-2024 End: 03-38-6222Qrlkwa outpatient visit 25 minutesFelicvirgen Meng PERMASTONE MECHANIC Work Phone: noms SWS NEURComment on above:BUCK on CPAP (Primary Dx); Idiopathic progressive polyneuropathy; Intractable 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 (CMS/HCC); Restless legs; Bilateral carpal tunnel syndromeStart: 09-14-2024 End: 82-05-5054xksdhsziwvQOOECSK Jamila YUSRANot AvailableStart: 09-09-2024 End: 30-88-9359Cdsairyizu OrdersFelicia Bangthe hospital of central connecticutt [facility] Willard Hospitaleal ENT AshlandComment on above:Thyroid nodule (Primary Dx)Start: 09-06-2024 End: 18-91-3556pjgwtgfodbPOKBCProMedica Bay Park Hospitaltart: 09-06-2024 End: 55-95-2295Udfozqndpz hospital visit by physicianFelipe Adam MD Work Phone: [place] UltrasoundComment on above: Thyroid noduleStart: 08-11-2024 End: 61-85-8348OxbvomZxmyvmv W Bauer MD Work Phone: noms SWS NEURComment on above:Idiopathic progressive polyneuropathy; Non-seasonal allergic rhinitis due to pollenStart: 06-10-2024 End: 41-15-9400Qonptr Therese Casas MD Work Phone: noms BM NEUROLOGYStart: 06-10-2024 End: 14-29-5665Hciicc Therese Casas MD Work Phone: noms BM NEUROLOGYStart: 06-10-2024 End: 56-57-1917Dctxil outpatient visit 25 minutesTrace Casas MD Work Phone: noms [facility] NEURComment on above:Idiopathic progressive polyneuropathy (Primary Dx); Bilateral carpal tunnel syndrome; Restless legs; Intractable 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 (CMS/HCC) Start: 06-10-2024 End: 75-58-0434lpsagnjdceOAIAXPL W BAUERNot AvailableStart: 05-10-2024 End: 26-12-6845Jummvqrjmu hospital visit by Paola Adam MD Work Phone: mwhZ LaboratoryStart: 05-10-2024 End: 15-00-0410Sogwry outpatient visit 40 minutesNicole Ginger DO Work Phone: noms WNZ NEUROComment on above:BUCK (obstructive sleep apnea); Hypersomnia; Snoring; Class 2 obesity due to excess calories with body mass index (BMI) of 38.0 to 38.9 in adult, unspecified whether serious comorbidity presentStart: 02-15-2024 End: 04-74-4004mlzbhzwfywWpiua D HighlanderFacility:[facility] Hospitaltart: 02-15-2024 End: 28-67-8404ikeqcicdwaTCP [facility] Work Phone: [facility] Work Phone: Start: 02-15-2024 End: 97-63-4941Cgzjkerv ReferredDP [facility] Work Phone: [facility]-LAB Path Spec Ursula HospStart: 06-15-2023 End: 93-47-4028Agdatpxuac hospital visit by Paola Adam MD Work Phone: mWHZ LaboratoryComment on above:Mixed hyperlipidemia Start: 98-26-2318aiaksgsoxjLCLBNSelect Medical [facility] PhysiciansStart: 03-03-2023 End: 08-54-1473Kvcgkp outpatient new 45 minutesMASSIMO Shook DPM Work Phone: [facility] Physicians GroupComment on above:Charcot arthropathy of midfoot (Primary Dx); Gastrocnemius equinus, unspecified laterality; Foot pain, leftStart: 02-11-2023 End: 69-68-8261snvltkxsvhAHMVD D HIGHLANDERFacility:U0Gmfrf: 02-05-2023 End: 47-17-3518Xmgjtsqvxr hospital visit by Paola Adam MD Work Phone: mZ LaboratoryComment on above:Pelvic pressure in femaleStart: 02-04-2023 End: 57-72-1937yrpfgxhoktQQLBE D [facility] CENTERANDERFacility:R7Ieupq: 01-28-2023 End: 53-53-7706uvcciqyugwUKRZD D [facility] CENTERANDERFacility:H1Blwcc: 01-06-2023 End: 69-58-6762Vkmcjjhuw department patient visitNassau University Medical Centertart: 07-09-2022 End: 43-80-0085Tqrakylvhe hospital visit by JOE Rod RD Work Phone: mZ Diet and NutritionComment on above:ArrivedStart: 07-02-2022 End: 79-72-2972Njmirfcjdh hospital visit by Efren Diabetes Education Work Phone: mWHZ Diabetic EducationStart: 06-25-2022 End: 56-98-3688Olpqrsjlvu hospital visit by physicianTennille Additional [facility] RadiologyComment on above:Foreign body (FB) in soft tissue Start: 06-25-2022 End: 46-65-0538Kfdvduqllg hospital visit by [facility] Mri Scanner [facility] Hospital - Youngstownard MRIComment on above:Pain of foot, unspecified laterality; Closed nondisplaced fracture of second metatarsal bone of left foot, initial encounter; Closed nondisplaced fracture of lateral cuneiform of left foot, initial encounterStart: 05-27-2022 End: 15-75-8150Obgjyrdhps hospital visit by physicianKaleida Health Ultrasound Room [facility] UltrasoundComment on above:Neck massStart: 04-28-2022 End: 40-83-4486hvhbwynmwbDDRROG S GOINESMercy Holy Cross Hospitaltart: 04-28-2022 End: 22-33-4180Sbcxitfrwa hospital visit by Paola Adam MD Work Phone: MAL[facility] LABORATORYComment on above:Acute cystitis with hematuriaStart: 04-12-2022 End: 27-30-8270Lnirnwxpey hospital visit by Paola Adam MD Work Phone: mWHZ LaboratoryComment on above:Fatigue, unspecified type; Encounter for screening for HIV; Mixed hyperlipidemia; Hyperglycemia; Chronic renal impairment, stage 3b (HCC)Start: 02-05-2022 End: 34-14-6725Xsstkmntcq hospital visit by Kaylah PAYTON Physical TherapyStart: 02-04-2022 End: 05-73-7066Iwgdejb encounter procedureChillicothe Va [facility] Center [facility]tr-MRI Strub RdStart: 02-03-2022 End: 83-87-4381Uahljfpnzp hospital visit by Bradley Johnson Physical TherapyStart: 01-29-2022 End: 87-78-9195Umayjmgmaa hospital visit by Ivan VIGIL Physical TherapyComment on above:ArrivedStart: 01-27-2022 End: 61-04-5097Dswrboxerf hospital visit by Kaylah PAYTON Physical TherapyComment on above:ArrivedStart: 01-24-2022 End: 70-30-0718Gnqcsmfbuw hospital visit by Jojo GREENZ Physical TherapyComment on above:ArrivedStart: 01-22-2022 End: 22-24-7813Yeayaxmdxl hospital visit by Ivan VIGIL Physical TherapyStart: 01-17-2022 End: 96-04-0903Wirqnzbmqm hospital visit by Ivan VIGIL Physical TherapyComment on above:ArrivedStart: 01-13-2022 End: 07-59-8564Jzlvvsdrof hospital visit by Kaylah PAYTON Physical TherapyStart: 01-03-2022 End: 66-26-9452Axadhjmncr hospital visit by Ivan Rangel PTAMWHZ Physical TherapyComment on above:ArrivedStart: 12-31-2021 End: 83-85-1477Yokqknvofv hospital visit by Renetta Herman OTMWHUzair Occupational TherapyComment on above:ArrivedStart: 12-30-2021 End: 45-15-0265Qmoamozluf hospital visit by Renetta Herman OTMORGAN STANLEY CHILDREN'S HOSPITALUzair Occupational TherapyComment on above:ArrivedStart: 12-23-2021 End: 92-53-0536Myedisadsh hospital visit by Renetta Herman OTMORGAN STANLEY CHILDREN'S HOSPITALUzair Occupational TherapyComment on above:ArrivedStart: 11-29-2021 End: 83-05-3460jonyirooefHMVIROptim Medical Center - Tattnalltart: 08-01-2021 End: 26-88-9506Tyfjvpehmb hospital visit by Paola Adam MD Work Phone: mE LaboratoryComment on above:Frequent UTI; Urinary urgency; Urinary frequencyStart: 07-11-2021 End: 52-79-5461Tjlizphcpm hospital visit by Paola Adam MD Work Phone: mwhz LaboratoryComment on above:Frequent UTI; Urinary urgency; Urinary frequencyStart: 06-11-2021 End: 32-80-9562Qtbsnpepfc hospital visit by Paola Adam MD Work Phone: mwhz LaboratoryComment on above:Acute cystitis with hematuria; Recurrent UTIStart: 05-27-2021 End: 75-33-9973Wvlrsdahwb hospital visit by Paola Adam MD Work Phone: mwhz LaboratoryComment on above:Difficult or painful urinationStart: 05-20-2021 End: 55-63-7231Epleqwlqnt hospital visit by Paola Adam MD Work Phone: mwhz LaboratoryStart: 04-13-2021 End: 84-57-0655Bkcrpcylsg hospital visit by Paola Adam MD Work Phone: mwhz LaboratoryComment on above:Acute cystitis with hematuriaStart: 02-13-2021 End: 95-84-9197Gprldxmjan hospital visit by physicianKaleida Health Andriy19 Pat Screening ScheduleMWHZ PRE ADMITComment on above:Suspected COVID-19 virus infectionStart: 01-21-2021 End: 25-22-2026Sphxtlrfvi [facility] Covid19 Pat Screening ScheduleMWHZ PRE ADMITComment on above:Viral illnessStart: 11-15-2020 End: 93-23-2451Kclsnaygzc hospital [facility] physicianK[facility] Covid19 Pat Screening ScheduleMWHZ PRE ADMITComment on above:ArrivedStart: 09-16-2020 End: 01-65-3110Btbjuivyx department patient visitChjorge Rooney Work Phone: [facility] EDComment on above:Acute thoracic back pain, unspecified back pain laterality (Primary Dx)Start: 08-24-2020 End: 40-88-8778Pdmaqcvxqc hospital visit by physicianL[facility] Hospitalrubens AdamMORGAN ST[facility] H[facility]PITALUzair [facility] Comment on above:Epidural abscessStart: 08-08-2020 End: 97-86-3395Pcefojsfek hospital visit by physicianLaird Hospitalrubens AdamMORGAN ST[facility]OS[facility]ITALUz[facility] Comment on above:SOB (shortness of breath)Start: 07-24-2020 End: 35-16-8429Dsnizylmhi hospital visit by physicianAd[facility] BackMORGAN STANLEY CHILDREN'S HOSPITALUzair Laboratory Comment on above:Epidural abscessStart: 06-07-2020 End: 51-60-0737Evrkhryahw hospital visit by physicianAdventhealth [facility]ers Er BackST[facility] Start: 05-25-2020 End: 36-48-0035Gmjrunlsek hospital visit by physicianAdventhealth [facility] Er BackMOR[facility] HOSPITALUzair Laboratory Comment on above:Vitamin D deficiency; Mixed hyperlipidemia; HyperglycemiaStart: 12-14-2019 End: 89-56-3419Nvnbzgxpcq hospital visit by physicianAdventhealth [facility] Corn[facility] Er BackMORGAN ST[facility]ILDR[facility] HOSPITALUzair Laboratory Comment on above:MRSA (methicillin resistant Staphylococcus aureus) septicemia (HCC)Start: 09-24-2019 End: 35-35-3214Dxcsprdpll hospital visit by Paola Adam MD Work Phone: [facility]ITALZ LaboratoryStart: 09-12-2019 End: 22-15-2818Jglybwigiv hospital visit by physicianBilly Back MD Work Phone: [facility] SLEEP LABStart: 08-29-2019 End: 78-38-3541Psvpxvttqd hospital visit by [facility] Schedule [facility] SLEEP LABComment on above:ArrivedStart: 07-28-2019 End: 08-98-2287Pweqwqmmjk hospital visit by Kong Campos [facility] RadiologyComment on above:MRSA (methicillin resistant Staphylococcus aureus) septicemia (HCC)Start: 06-17-2019 End: 45-06-1196Bidvquwenu hospital visit by Paola Pappas Laboratory Comment on above:MRSA (methicillin resistant Staphylococcus aureus) infection Start: 02-03-2019 End: 02-32-6887Zdnhody [facility] Start: 02-03-2019 End: 23-06-9039Oxsietgijf hospital visit by Nilesh Casas Work Phone: [facility] MRIComment on above: Brachial neuritis; Peripheral nerve disorder; Spasm of muscleStart: 11-10-2018 End: 51-09-5263Yyfovgg encounter procedureAndrey EarlyFacility:[place] Start: 10-18-2018 End: 15-27-1844Zgyyfoc encounter procedureAndrey Early Work Phone: [facility] HospitalStart: 19-50-1230Oksgwfy encounter procedureLuis NiecyiFacility:[place]Start: 10-03-2018 End: 39-80-7697Nagrefs encounter procedureFelipe [facility] HospitalStart: 09-20-2018 End: 47-23-4358Odrxtnt encounter procedureLuis E NiecyiFacility:[facility] HospitalStart: 06-08-8021Odririg encounter procedureFacility:[id number]: 78-69-0816Ttldnam encounter procedureLUIS E [facility] HospitalStart: 09-06-2018 End: 15-08-7081Alvkdez encounter procedureHistorical [facility] REG Start: 08-31-2018 End: 00-63-8095Ytdtsdj encounter procedureHistorical [facility] REG Start: 08-27-2018 End: 04-01-2188Abqayfg encounter procedureLuis E NiecyiFacility:[facility] HospitalStart: 96-25-6263Chgbupw encounter procedureFacility:9509Start: 08-15-2018 End: 18-01-1145Nfcotbqiur and management of inpatientWABRENDA Schafer Fabiola Hospitaltart: 04-02-2018 End: 74-11-5630Iwemffo encounter procedureJosophie CalderonFacility:[place]Start: 76-71-8400Jwyortx encounter procedureMelmalcom Jose ManuelFacility:[facility] Northart: 02-04-2018 End: 65-97-3184MmwmlkpqsxQmmyta Trista Usharochester general hospital HospitalStart: 82-47-2215Dpzqhkr encounter procedureTERBrock [facility]LEST[facility] MEDICAL CENTERanuelSaint Michael's Medical Centertart: 11-17-2017 End: 74-87-0115DrtditsqfcMcalyasz Rings Work Phone: [facility] Centertart: 10-20-2017 End: 68-07-9099EggpuxjlvbDQNOTQGDAKSHA Nevarez [facility] Hospitaltart: 31-34-1290Fggpjls encounter procedureTERMercy Memorial Hospitaltart: 12-67-7983DdwwsxqwjiENPMIXRehoboth McKinley Christian Health Care Servicestart: 10-09-2017 End: 10-31-6136Ijqggid encounter procedureTERKnox Community Hospital Start: 44-95-8794Xkxjscn encounter procedureTERKnox Community Hospital Start: 38-26-9800GavqcygqwgURGDRFRehoboth McKinley Christian Health Care Servicestart: 03-31-2017 End: 74-44-6987JelhkycxgjXHJQAKICHASE [facility]ino [facility] Procedures DateProcedureProcedure DetailPerforming ClinicianStart: 86-24-9207Xrdmz metabolic panel calcium totalBilly Back Work Phone: start: 81-38-1630Bplym metabolic panel calcium total Damon PROCTOR Work Phone: Start: 34-14-0065V-reactive proteinKiharshal Segura PA Work Phone: Start: 05-15-0831Ktyog function panelJadanny Samson PERMASTONE MECHANIC-C Work Phone: Start: 43-12-9193Xhmgx metabolic panel calcium total [facility] D [facility] Centerjoanie DPM Work Phone: Start: 53-94-6165T-reactive proteinPeter D [facility] DPM Work Phone: Start: 79-37-9473HZXEBYFQQJ CHECKPeter D [facility] DPM Work Phone: Start: 79-52-0569Ykdombvsyklii metabolic panelBilly Back Work Phone: start: 95-13-3192Vdihd panelBilly Back Work Phone: start: 20-47-7310CRU FOOT RIGHT W WO CONTRAST Robbin Sánchez DPM Work Phone: Start: 85-41-9942Bjj lower extrem oth/thn jt w/o & w/contr matrChristopher Adam Sánchez DPM Work Phone: Start: 15-43-4477Taokr of urea nitrogen quantitative Robbin Sánchez DPM Work Phone: Start: 94-35-9613MYKE BUN + CREATININEChristopher Adam Sánchez DPM Work Phone: Start: 78-74-5995Fdqzpfydyi examination foot 2 views Robbin Sánchez DPM Work Phone: Start: 04-04-2025 End: 48-27-6252Ubhon toe minimum 2 viewsSevero Case MD Work Phone: Start: 94-16-5063J-reactive proteinSevero Case MD Work Phone: Start: 04-04-2025 End: 62-82-5445Hrhgcxxdemm peptideSevero Case MD Work Phone: Start: 84-92-4734Hvmvcesybalpm metabolic panelBilly Back Work Phone: start: 74-77-1903Epsua Jignesh Adam MD Work Phone: start: 40-27-9418Qu soft tissue head & neck real time ramesh Adam MD Work Phone: start: 09-35-8362Bkfkh function panelScatrina Forbes MD Work Phone: Start: 48-58-4799Auqke dip stick/tablet rgnt auto w/o microscopySwdomenica Forbes MD Work Phone: Start: 59-81-9295Yoytg Jignesh Adam MD Work Phone: start: 49-58-2733Kgwoyhhb Susan Cassidy DPM Work Phone: Start: 37-38-3537Eox prim src wet mount nfct agtLuis Mclean PA-C Work Phone: Start: 58-67-4746Lbc lower extrem oth/thn jt w/o & w/contr matrChristopher J Bohbobby DPM Work Phone: Start: 81-28-1892Eezoleiqzm examination foot 2 views Micky Lauren MD Work Phone: Start: 64-81-0679Cz soft tissue head & neck real time ramesh Adam MD Work Phone: start: 39-91-7614Srbztpysxpvou metabolic Jignesh Adam MD Work Phone: start: 97-56-0899Yxfxb Jignesh Adam MD Work Phone: start: 26-46-9579AZ lumbar spine wo conStart: 39-12-4877SG pre/post mri xrayStart: 81-41-8185Yuanbptgzqt observation [Identifier] in Cervix by Cyto stainMwhz Education Work Phone: Start: 92-62-9834Ktlln dip stick/tablet reagent auto microscopyThomas Desi MELENDREZ Work Phone: Start: 39-02-8969Jjqwf dip stick/tablet reagent auto microscopyThomas Desi MELENDREZ Work Phone: Start: 33-86-5140Ytimdwxwfwq panelGregory Forbes MD Work Phone: Start: 90-19-5238Exivo dip stick/tablet rgnt auto w/o microscopyGregory Forbes MD Work Phone: Start: 88-91-6908QAGBC-19Wendy Meka Hull ACCOUNTING POLICY CONSULTANT - RISK MODELER Work Phone: Start: 31-17-4045YCVPS-Luis E Hartman Work Phone: Start: 91-21-4958Wrxuj dip stick/tablet rgnt auto w/o microscopyChjorge Rooney Work Phone: Start: 09-16-2020 End: 98-84-5142Zudqj count complete auto&auto difrntl wbcChjorge Rooney Work Phone: Start: 39-71-0797Cvygltetmxkvt rate rbc automated Robbin Rooney Work Phone: Start: 42-81-2676Pdrwr count complete auto&auto difrntl wbcLuis E Hartman Work Phone: Start: 08-03-1710G-reactive proteinLuis E Hartman Work Phone: Start: 04-74-6679Yhawjbmcchjne rate rbc automatedLuis E Hartman Work Phone: Start: 63-71-5727Pmoon count complete auto&auto difrntl wbcLuis E Hartman Work Phone: Start: 69-27-5852G-reactive proteinLuis E Hartman Work Phone: Start: 81-67-0743Lqmsorydonqaw rate rbc automatedLuis E Hartman Work Phone: Start: 28-31-4763Rwnbjwo total xcpt refractometry urineHeather Forbes Work Phone: Start: 17-58-6838Hlovj dip stick/tablet rgnt auto w/o microscopyHeather Forbes Work Phone: Start: 34-78-169062 hydroxy includes fractions if performedBilly Back Work Phone: start: 21-68-7482Allzczrsdizha metabolic panelBilly Back Work Phone: start: 00-38-6936Qczqtlkqlf glycosylated s3uSxsly Back Work Phone: start: 31-94-3891Pjzai panelBilly Back Work Phone: start: 57-42-4477Xvzirxqcxod direct measurement ldl cholesterolBilly Back Work Phone: start: 05-25-7272SUTLRET FASTING?Felipe Back Work Phone: start: 76-18-1491G-reactive proteinNora Longthorne Work Phone: Start: 94-26-8817Yyyujginuv glycosylated w8tKbqgwencrq Mónica Sawyeri ACCOUNTING POLICY CONSULTANT - RISK MODELER Work Phone: Start: 14-18-1536MORHPFV B12 & FOLATEJacsanta Harmonianharinder ACCOUNTING POLICY CONSULTANT - RISK MODELER Work Phone: Start: 37-27-8399Bzpgf spine cervical 4 or 5 viewsNora Longthorne Work Phone: Start: 07-43-5719Ulomy count complete auto&auto difrntl wbcNora Longthorne ACCOUNTING POLICY CONSULTANT - RISK MODELER Work Phone: Start: 60-86-2615S-reactive proteinNora Longthorne ACCOUNTING POLICY CONSULTANT - RISK MODELER Work Phone: Start: 46-66-1119Ngasrcn serum plasma/whole blood Heather Forbes Work Phone: Start: 52-93-0086Hmifg of magnesiumHeather Forbes Work Phone: Start: 26-05-3755Crhzo of phosphorus inorganicSwdomenica Forbes Work Phone: Start: 61-12-6192Bgjiz of urea nitrogen quantitative Heatherwoody Forbes Work Phone: Start: 81-18-0650Duaov count hemoglobinSwdomenica Forbes Work Phone: Start: 43-08-5510Avenknm totalSwapwoody Forbes Work Phone: Start: 64-46-7627Uoiqjlkbtxt panelSwapna Andrei Work Phone: Start: 09-49-9508Wzivcep total xcpt refractometry urineSwdomenica Forbes Work Phone: Start: 97-87-1780Ylwxygfwfx microscopic onlySwdomenica Forbes Work Phone: Start: 32-25-4046Wlpkt dip stick/tablet rgnt auto w/o microscopySwdomenica Forbes Work Phone: Start: 42-04-5527K-reactive proteinLuis E Hartman Work Phone: Start: 25-70-5034Anrypjkzpxtev rate rbc automatedLuis E Hartman Work Phone: Start: 89-74-1797LUP of cervical spine without contrastExternal TranscribedStart: 10-03-2018 End: 20-37-3533Ahjenymqdre examination of blood, cultureLuis JaureguiComment on above:Performed By: #### BC #### Unless otherwise noted, all testing performed by [place] [address] CLIA: [id number] Rn Or Lpn: Harshad Solano M.D.Start: 09-06-2018 End: 36-35-4442PHYX (OUTSIDE)Historical ProviderStart: 08-31-2018 End: 85-60-5356CZAP (OUTSIDE)Historical ProviderStart: 54-23-1763FK CONSULT TO HOME CARE NEEDSWABRENDA MARYtart: 03-77-2764Hxnmt of magnesiumWASEEDIN CASASANStart: 65-07-3949Gxedr metabolic panel calcium totalWASEEM YESSENIAANStart: 69-80-5709Hqejj count complete auto&auto difrntl wbcWASEEM YESSENIAtart: 53-43-3107Seikiqpxnqtcy (pct)JV MARYrt: 38-86-3681VUGLCWZKC PATIENTWASEEM YESSENIAtart: 08-25-2018 PULSE OXIMETRY, CONTINUOUSWASEEM YESSENIAANStart: 49-76-5171USMZUR PICC LINEWASEEM YESSENIAANStart: 08-73-4083JAMCVGTPZRTLY NURSING CARE ORDER (SPECIFY)JV MARYrt: 16-60-2114YYF ORDER FOR WALKER OPWASEEM YESSENIAANStart: 02-54-5731ORGRM OXIMETRY, CONTINUOUSWASEEM YESSENIAANStart: 60-82-6710SXLXFE PHYSICIAN (SPECIFY)JV APPLE Start: 08-19-2860WNZNTBD COMMUNICATIONWASEEM YESSENIAtart: 51-12-4353CUOMS CANNULA OXYGENWASEEM YESSENIAtart: 94-61-2235KEABTPLSI SPIROMETRY RTWASEEM tart: 42-07-6666LDABPRCC OXYGEN THERAPY PROTOCOLWA YESSENIArt: 39-14-0609WOLWU OXIMETRY, CONTINUOUSWASEEM YESSENIAANStart: 57-39-9009Vxgnt of magnesiumJV APPLE Start: 61-56-2445Gfcbj metabolic panel calcium totalWASEEM USMANtart: 08-25-2018 Blood count complete auto&auto difrntl wbcWASEEM YESSENIAANStart: 68-53-0055NDAWE OXIMETRY, CONTINUOUSWASEEM YESSENIAANStart: 20-86-0429ZKHLR OXIMETRY, CONTINUOUSWASEEM KHANStart: 92-10-7768DSVVC OXIMETRY, CONTINUOUSWASEEM KHANStart: 11-68-6699GOUB GENERALWASEEM YESSENIAANStart: 72-14-8755XI EVAL AND TREATWASEEM YESSENIAANStart: 78-48-0221XK EVAL AND TREATWASEEM YESSENIAANStart: 25-01-3179XUQAQ OXIMETRY, CONTINUOUSWASEEM YESSENIAANStart: 14-15-1861CNAHZ OXIMETRY, CONTINUOUSWABRENDA APPLE Start: 23-24-8720CYWRURTNR SPIROMETRY RTABRAZO WEST CAMPUSEDIN CASASANStart: 30-58-2363OGASFJSN OXYGEN THERAPY PROTOCOLPARKSIDE PSYCHIATRIC [facility] [place] USMANtart: 47-67-1636XYSTG OXIMETRY, CONTINUOUS JV YESSENIAANStart: 85-53-7059LPSQ FAST CULTURE WITH SMEARJACKSON [facility] YESSENIAtart: 94-05-9132SOYLRD STAINEDIN CASAStart: 06-82-9885NHMEUX CULTUREPABRENDA APPLE Start: 65-70-9885VNEMCK CULTUREABRAZO WEST CAMPUSEDIN CASASANStart: 29-17-7465KBXLK OXIMETRY, CONTINUOUSWAJACKSON [facility] YESSENIAANStart: 98-94-9495Mreejrjmmqxur (pct)JV KHtart: 89-87-5258QPWML OXIMETRY, CONTINUOUSWAJACK[facility] YESSENIAANStart: 94-43-5347AWVQA CAREPARKSIDE PSYCHIATRIC [facility] [place] USMANtart: 78-29-9981TCOPGRXYIDGDC NURSING CARE ORDER (SPECIFY)JV APPLE Start: 74-88-6541NUCLKADH PATIENTWAJACKSON [facility] YESSENIAtart: 14-94-4176JCRIXM FOR SURGICAL PROCEDURESJACKSON [facility] YESSENIArt: 18-63-5402USCZIGJRJ AND AEROBIC CULTUREPABRENDA APPLE Start: 08-79-2368QLETS OXIMETRY, CONTINUOUSWAJACKSON [facility] YESSENIAtart: 70-11-6814MXQLD OXIMETRY, CONTINUOUSWASE YESSENIAANStart: 20-07-6583ZCBQA OXIMETRY, CONTINUOUSWASEEM YESSENIAANStart: 50-82-1434OF CONSULT TO IV TEAMJACKSON [facility] YESSENIAtart: 95-83-8489UVQMYIODD SPIROMETRY RTPARKSIDE PSYCHIATRIC [facility] [place] YESSENIAtart: 25-06-8290TSUWKHGO OXYGEN THERAPY PROTOCOLPARKSIDE PSYCHIATR[facility] [place] USMANtart: 29-30-7952JRQOB OXIMETRY, CONTINUOUSWASEEM YESSENIAANStart: 08-23-2018 Blood count complete auto&auto difrntl wbcUNIVERSITY HOSPITALrt: 08-23-2018 Comprehensive metabolic panelMERCY HOSPITAL WASHINGTONtart: 85-44-8323Fnpmphkzpcb platelet assayWAJACKSON [facility] YESSENIAtart: 09-47-0093GSRWR OXIMETRY, CONTINUOUSWAJACKSON [facility] YESSENIAANStart: 01-19-2087CYGSP OXIMETRY, CONTINUOUSWASEEM KHANStart: 00-48-4407VFYET OXIMETRY, CONTINUOUSWASEEM KHANStart: 58-23-7993GBFXK OXIMETRY, CONTINUOUSWASEEM APPLE Start: 85-94-8523JOXSU OXIMETRY, CONTINUOUSWASEEM KHANStart: 75-76-0336VVQFGRWIB SPIROMETRY RTWASEEM YESSENIAANStart: 67-20-8791MHSRLEYD OXYGEN THERAPY PROTOCOLWASEEM YESSENIAANStart: 87-36-0570GNJAJ OXIMETRY, CONTINUOUSWASEEM KHANStart: 08-22-2018 Assay of magnesiumWASEEM YESSENIAANStart: 44-28-4749Jxrmj count complete auto&auto difrntl wbcWASEEM YESSENIAANStart: 69-94-6961GYCXZXBYQL, TROUGHWASEEM YESSENIAANStart: 74-62-1460OQWJQ OXIMETRY, CONTINUOUSWASEEM KHANStart: 41-09-8679XPEJN OXIMETRY, CONTINUOUSWASEEM KHANStart: 11-72-4863IKTRW OXIMETRY, CONTINUOUSWASEEM APPLE Start: 17-42-2044Traqfckdvknou (pct)JVMARISABEL MARYtart: 76-20-8637AYTWD OXIMETRY, CONTINUOUSWASEEM YESSENIAANStart: 45-64-7668AHXAQ OXIMETRY, CONTINUOUSWASEEM APPLE Start: 72-57-5969Qlf lower extrem oth/thn jt w/o & w/contr matrWASEEDIN MARYtart: 87-21-6392OOIWHBMGM SPIROMETRY RTWASEEM USMANtart: 27-56-4501TDFQJMRO OXYGEN THERAPY PROTOCOLWASEEM YESSENIAANStart: 56-03-4408RAZHA OXIMETRY, CONTINUOUSWASEEM KHANStart: 40-00-8149Ztxyf of magnesiumWASEEM USMANtart: 13-55-0917Jxhdz count complete auto&auto difrntl wbcWASEEM USMANtart: 24-88-4232KQQBK OXIMETRY, CONTINUOUSWASEEM KHANStart: 71-73-2358BIEWU OXIMETRY, CONTINUOUSWASEEM APPLE Start: 17-25-8459FDDYK OXIMETRY, CONTINUOUSWASEEM KHANStart: 08-20-2018 MISCELLANEOUS NURSING CARE ORDER (SPECIFY)JV USMANtart: 09-51-3260Fuinf foot complete minimum 3 viewsEDIN MARYtart: 17-56-9938JIZVF OXIMETRY, CONTINUOUS JV USMANtart: 63-22-7306D-reactive proteinJACKSON COUNTY [facility]IAL [facility] USMANrt: 08-20-2018 SEDIMENTATION RATEBRENDA MARYtart: 04-44-2079UJNBI OXIMETRY, CONTINUOUSWABRENDA MARYtart: 05-68-3555DMZYTXBMZ SPIROMETRY RTABRAZO WEST CAMPUSEDIN MARYtart: 20-76-1191HAFJRVGE OXYGEN THERAPY PROTOCOLABRAZO WEST CAMPUSEDIN MARYtart: 70-48-3906KFMFB OXIMETRY, CONTINUOUS JV YESSENIAANStart: 52-61-4853Jyldn of magnesiumJV MARYtart: 71-27-8391Lryij count complete auto&auto difrntl wbcEDIN MARYrt: 70-28-1967HSBSK OXIMETRY, CONTINUOUSWABRENDA MARYtart: 54-53-8812JEPBY OXIMETRY, CONTINUOUSJV APPLE Start: 62-33-7132LWAMA OXIMETRY, CONTINUOUSWAEDIN MARYtart: 99-39-8135BV CONSULT TO ORTHOPEDIC SURGERYJACKSON [facility] USMANrt: 73-22-3616Gofcrvjvrslor (pct) JVMARISABEL MARYrt: 02-15-5678JCJJD OXIMETRY, CONTINUOUSPABRENDA MARYtart: 47-83-6842Vec spinal canal cervical w/o & w/contr matrlJV MARYtart: 76-56-1280Khp spinal canal lumbar w/o & w/contr matrlPAEM USMANtart: 22-18-2770Lvs spinal canal thoracic w/o & w/contr matrlWAEM YESSENIAANStart: 37-85-9711TJADR OXIMETRY, CONTINUOUSWABRENDA MARYtart: 59-84-9540VPYEGGYRE SPIROMETRY RTABRAZO WEST CAMPUSEDIN MARYtart: 73-29-9158YIRIWZFX OXYGEN THERAPY PROTOCOLABRAZO WEST CAMPUSEDIN MARYrt: 86-59-3365UGIAQ OXIMETRY, CONTINUOUSWAEM USMANtart: 07-10-2402OF CONSULT TO IV TEAMPARKSIDE PSYCHIATRIC [facility]OS[facility] [place] USMANtart: 91-36-7922Ujiox of magnesiumJV APPLE Start: 39-93-9726Qojqa count complete auto&auto difrntl wbcWABRENDA MARYtart: 69-56-7662ZDJWK OXIMETRY, CONTINUOUSWASEEDIN MARYtart: 05-46-4687FJQNK OXIMETRY, CONTINUOUSWASEEM USMANtart: 35-86-8415ZMRMS OXIMETRY, CONTINUOUSWABRENDA APPLE Start: 21-40-8155FYDEA OXIMETRY, CONTINUOUSWASEEM YESSENIAANStart: 43-99-5609TRWIZ OXIMETRY, CONTINUOUSWASEEM USMANtart: 33-08-9029IQPJZDULD MONITORINGJV APPLE Start: 36-24-6304QJOGGTQTK SPIROMETRY RTPABRENDA MARYtart: 20-66-3028ELRYXHTO OXYGEN THERAPY PROTOCOLABRAZO WEST CAMPUSEDIN MARYtart: 20-87-3650VWBLL OXIMETRY, CONTINUOUS JV YESSENIAANStart: 77-54-8454Qqpmo of magnesiumWABRENDA MARYtart: 54-23-8401Nijir count complete auto&auto difrntl wbcPABRENDA MARYtart: 67-15-2447XJONEYYHUL, TROUGHWABRENDA MARYtart: 32-44-9308IGUXA OXIMETRY, CONTINUOUSWASEEDIN MARYtart: 24-25-5237QKFER OXIMETRY, CONTINUOUSWASEEDIN MARYtart: 09-39-6735GTPEH OXIMETRY, CONTINUOUSWASEEM USMANtart: 03-19-4278Tyksqmqtfixrl (pct)JVMARISABEL MARYrt: 28-11-7662ZRVBU OXIMETRY, CONTINUOUSEDIN MARYtart: 45-33-6887VDDLLKX BLOOD #1 JVMARISABEL MARYtart: 97-49-0987XCOLM OXIMETRY, CONTINUOUSWASEEM YESSENIAANStart: 15-56-9831Hcaz tthrc r-t 2d w/wom-mode compl spec&colr dWTUCSON MEDICAL CENTEREDIN MARYtart: 72-77-4892RZHRZVZAN SPIROMETRY RTPABRENDA MARYtart: 01-25-5510ZONHXDMK OXYGEN THERAPY PROTOCOLABRAZO WEST CAMPUSEDIN MARYtart: 48-97-1277LENVU OXIMETRY, CONTINUOUSWASEEM YESSENIAANStart: 55-79-8330Yixcm of magnesiumPABRENDA MARYtart: 90-63-7324Bhqkz count complete auto&auto difrntl wbcPABRENDA MARYtart: 18-29-0371F-reactive protein JV USMANtart: 00-34-0872IAULGKCPLOHJS RATEWASEEM USMANtart: 70-57-8139CZKQQ OXIMETRY, CONTINUOUSWASEEM YESSENIAANStart: 07-91-2586Ripd tthrc r-t 2d w/wom-mode compl spec&colr dWASEEDIN MARYtart: 61-72-6406DMHIB OXIMETRY, CONTINUOUSWASEEM YESSENIAANStart: 10-11-0621JHFQA OXIMETRY, CONTINUOUSWASEEM KHANStart: 72-28-8041CAHYR OXIMETRY, CONTINUOUSWASEEM YESSENIAANStart: 81-20-4035ALKDD OXIMETRY, CONTINUOUS JV YESSNEIAANStart: 65-22-5155Ewg-scan xtr veins complete bilateral studyWA YESSENIAtart: 86-21-2843Wtdk tthrc r-t 2d w/wom-mode compl spec&colr dWMITCHEL APPLE Start: 81-04-5044Uc head/brain w/o contrast materialWAJACKSON [facility] YESSENIAtart: 08-16-2018 Radiologic exam chest 2 viewsJACKSON COUNTY MEMORIAL [facility]OSP[facility] YESSENIArt: 50-57-3380KPQSQMXTM SPIROMETRY RT JV YESSENIArt: 09-96-4786SMHBHYSU OXYGEN THERAPY PROTOCOL YESSENIArt: 31-37-0348GFRXI OXIMETRY, CONTINUOUSWASEEM YESSENIAANStart: 94-30-6968ENPXCGK ISOLATIONWAJACKSON [facility] USMANtart: 61-26-4900Kzsdh of lactateWASE YESSENIAtart: 92-83-4633VCOMCZC, IONIZEDWASEEM YESSENIAtart: 44-98-8111BV CONSULT TO IV TEAM JV YESSENIArt: 44-58-8987Eijdd of magnesiumWASEEM YESSENIAtart: 19-99-6413Aowsr count complete auto&auto difrntl wbcJACKSON COUNTY MEMORIAL [facility]OSP[facility] rt: 62-94-3768Ttanbzfawzv time JV USMANtart: 08-04-5642COUUA OXIMETRY, CONTINUOUSWASEEM YESSENIAANStart: 62-17-6029GGUGI WEIGHTSWAJACKSON [facility] YESSENIAANStart: 45-07-5854UGURZ OXIMETRY, CONTINUOUS JV YESSENIAANStart: 04-03-9045CQK 12-LEADWAUNIVERSITY HOSPITALrt: 94-59-0061Loaou of lactateWAUNIVERSITY HOSPITALrt: 30-55-2502Kjevgcbz I.cardiac mass concJACKSON COUNTY [facility]IAL [facility]OSP[facility] rt: 16-11-1662WQEDI OXIMETRY, CONTINUOUSBARTON COUNTY MEMORIAL HOSPITALrt: 68-28-3954QWFABRFX RT PROTOCOLUNIVERSITY HOSPITALrt: 06-53-2441IVJFHXECKG ANTIGEN, URINEJACKSON COUNTY [facility] rt: 70-37-8247QNLQU PNEUMONIAE ANTIGENJACKSON [facility]OR[facility] rt: 94-62-6292ZT CONSULT TO NEUROLOGYUNIVERSITY HOSPITALrt: 88-25-0727Bubmn of lactateJACKSON COUNTY [facility] rt: 48-38-4531Ufqjzfi bacterial blood aerobic w/id isolates rt: 82-17-6060VKPUVOT BLOOD #1 rt: 48-84-5884IVXDZOQGRF PNEUMONIAE ANTIBODY, IGMBARTON COUNTY MEMORIAL HOSPITALrt: 45-37-1974Rqbyrjlrgmnoi (pct)JV rt: 52-86-2198Mrwdwqpa I.cardiac mass concrt: 64-61-9129JTKHRMVN PRIVILEGES WITH ASSISTANCEUNIVERSITY HOSPITALrt: 63-63-9154FTVDAGWQK MONITORINGUNIVERSITY HOSPITALrt: 18-36-3123Qzf bact xcpt urine blood/stool aerobic isolUNIVERSITY HEALTH TRUMAN [facility] Start: 87-46-9537FCVHUKVOX DEEP BREATHING AND COUGHING rt: 80-61-4025OWYH CODEWAUNIVERSITY HOSPITALrt: 75-63-6031HJRBSHGCU SPIROMETRY RTJACKSON [facility] rt: 60-76-9628MGZSDUHH OXYGEN THERAPY PROTOCOLUNIVERSITY HOSPITALrt: 35-68-7936VSSZRJ AND OUTPUT rt: 26-19-7464PZ CONSULT TO INFECTIOUS DISEASESMERCY MCCUNE-BROOKS HOSPITALrt: 70-78-1723Nvrvfmjamxi observation Gram stain Nom (Unsp spec)JV KHrt: 25-07-8223ZLRBXJ PHYSICIAN (SPECIFY)JVCOXHEALTHrt: 59-51-5695KMZTHAJE TO DOSE VANCOMYCINUNIVERSITY HOSPITALrt: 14-92-5239VKZYY INTERMITTENT PNEUMATIC COMPRESSION DEVICEWASEEM CAROMONT HEALTHtart: 97-79-8398SCJJG OXIMETRY, CONTINUOUSWASEEM ANStart: 91-17-7639MRBMZ SIGNSWASEEM CAROMONT HEALTHtart: 53-53-3754ZPEXFGN STATUS (DIRECT)JV MARYtart: 07-02-5067VhuxuzkorfnXyrrx Back Work Phone: start: 76-52-4895Kjwqtpyqcbm observation [Identifier] in Cervix by Cyto Armani Casas Plan of Treatment DateCare ActivityDetailAuthorStart: 88-91-4251Magbn panelLipidsVcu Medical CenterStart: 36-06-8738Davua panelSentara Obici HospitalStart: 25-58-8909Xnawztny Vaccine (1 of 2)Shingles Vaccine (1 of 2)[facility] [place] Start: 93-90-9949Tntkp panelLipHospital Corporation of AmericaStart: 12-10-2027 Screening for malignant neoplasm of colonBon [address] HospitalStart: 01-01-3245Bbtao panelLipidsSOVAH HEALTH - DANVILLEStart: 25-53-6676Rinarrofh for malignant neoplasm of breastBreast cancer screenBon [facility] BTCJam Start: 59-71-6404LPA test (Diabetes, CKD 3-4, OR last GFR 15-59)GFR test (Diabetes, CKD 3-4, OR last GFR 15-59)[facility] CenterStart: 07-21-2026 GFR test (Diabetes, CKD 3-4, OR last GFR 15-59)GFR test (Diabetes, CKD 3-4, OR last GFR 15-59)[facility] PrixelSentara Leigh HospitalStart: 72-91-6393HEF test (Diabetes, CKD 3-4, OR last GFR 15-59)GFR test (Diabetes, CKD 3-4, OR last GFR 15-59)[facility] CenterStart: 07-27-9784QPR test (Diabetes, CKD 3-4, OR last GFR 15-59)GFR test (Diabetes, CKD 3-4, OR last GFR 15-59)[facility] BTCJam Start: 27-25-0476Qlxga panelPromedica Defiance Regional Hospital HealthStart: 82-82-1647LGR test (Diabetes, CKD 3-4, OR last GFR 15-59)GFR test (Diabetes, CKD 3-4, OR last GFR 15-59)[facility] CenterStart: 17-57-8356Jqlurqrutc A1c tpayuihrbteN0N test (Diabetic or Prediabetic)[facility] HospitalStart: 40-49-2487ECL test (Diabetes, CKD 3-4, OR last GFR 15-59)GFR test (Diabetes, CKD 3-4, OR last GFR 15-59)[address] HospitalStart: 14-95-8904Dcdrgarbki MonitoringDepression MonitoringBon Wilson Street HospitalStart: 73-82-7075IUE test (Diabetes, CKD 3-4, OR last GFR 15-59)GFR test (Diabetes, CKD 3-4, OR last GFR 15-59)[facility]art: 71-76-1068Huhefqvsth A1c ysonigkqbnsB2Q test (Diabetic or Prediabetic)[facility] CenterStart: 10-12-2025 End: 85-10-7263Ncbgfiw encounter hnmxarqpj04/08/2026 10:30 AM EST Office Visit [facility] [address] [place] [address] [place] [address] Dimas Adair MD [address] [place] [address] [facility], Nose and Throat PhysiciansStart: 10-11-2025 End: 61-60-1026WF Head and neck soft tissueUS Soft Tissue Neck Imaging Routine Thyroid nodule Expected: 10/11/2025, Expires: 10/11/2026[facility] Work Phone: Comment on above:Expected: 10/11/2025, Expires: 10/11/2026Start: 08-29-2025 End: 42-90-8068Djmqxeg encounter yiuaytdcu93/25/2025 11:45 AM EST Office Visit TERRY P[facility] [address] [place] [address] Lynn Block MD [address] [place] [address], [place] [address] TERRY Gutierrez [facility] Neurology Start: 08-23-2025 End: 30-08-6304Rjetubh encounter /19/2025 1:00 PM EST Office Visit TERRY Gutierrez [facility] [address] [place] [phone] Jennie Van, ACCOUNTING POLICY CONSULTANT-RISK MODELER [address] [place] [address] SHANNANRubén MccarthyStamford NeurologyStart: 08-03-2025 End: 47-38-5173Uhkndwu encounter ghwglommc04/30/2025 11:00 AM EDT Office Visit [address], [place] Felipe Adam MD [address] [place] [address] Return in about 3 months (around 07/19/2025).[facility] on above:Return in about 3 months (around 07/19/2025).Start: 07-27-2025 End: 79-32-2016Eeozbtw encounter cxnmzytyx19/23/2025 11:00 AM EDT Office Visit [address], [place] Felipe Adam MD [address] [place] [address], [place] [address] Return in about 3 months (around 07/19/2025).[facility] on above:Return in about 3 months (around 07/19/2025).Start: 19-13-9084XNYTU-19 Vaccine ( season)COVID-19 Vaccine ( season)Sid GasparRegency Hospital Cleveland WestStart: 05-31-2025 End: 80-66-7878ZY Cervical spine 4 or 5 ViewsXR cervical spine complete 4 to 5 views Imaging Routine Cervical paraspinal muscle spasm Expected: 05/31/2025, Expires: 05/24/2026[facility] Work Phone: Comment on above:Expected: 05/31/2025, Expires: 05/24/2026Start: 51-20-0089Mvmhs panelLipid [facility], KYStart: 05-24-2025 End: 47-24-6148Nvrmzza encounter nvuljykge86/20/2025 11:30 AM EDT Office Visit NOMRubén Gutierrez Neurology [address] [place] [phone] Jennie Van APRNCHILDR[facility] 5[address] [facility] [place] [address] NOMRubén Gutierrez NeurologyStart: 05-17-2025 End: 19-83-2132Kzikhuv encounter pbjwfolfc40/13/2025 1:20 PM EDT Office Visit [facility] [address] [place] [address] Trace Casas MD 0215 [facility] [address] [address] [facility] NEURStart: 05-15-2025 End: 46-42-0822Fwnxqgx encounter cxiauyjde32/11/2025 1:15 PM EDT Office Visit [address] [address] Felipe Adam MD [address] [place] [address] Return in about 6 months (around 05/15/2025).[facility] on above:Return in about 6 months (around 05/15/2025).Start: 37-31-1321KLU test (Diabetes, CKD 3-4, OR last GFR 15-59)GFR test (Diabetes, CKD 3-4, OR last GFR 15-59)[facility] HEALTHStart: 50-32-9688Iuexvynmm vaccinationVcu Medical CenterStart: 05-02-2025 Hemoglobin A1c ldkvxdsogopX9Q test (Diabetic or Prediabetic)[facility]art: 05-02-2025 End: 10-68-8636Dkhiaxa encounter nvezmkzai48/29/2025 2:00 PM EDT Office Visit [facility] NEUR B [address] [place] [phone] Fozia Meng, PERMASTONE MECHANIC [address], [address] [place] [phone] [facility] NEUR BStart: 05-01-2025 End: 15-00-0767Pohelod encounter /28/2025 4:00 PM EDT Office Visit [facility] [address] [place] [address] Robbin Sánchez, DPM [address] [place] [address] NOM[facility] WWW PODIATRYStart: 04-20-2025 End: 41-36-5433Ajsxrjs encounter xhtbuscsv81/17/2025 12:45 PM EDT Office Visit [facility] [address] [place] [phone] Robbin Sánchez, DPM [address] [place] [address] ArrivedNOMS WWW PODIATRYComment on above:ArrivedStart: 04-06-2025 End: 52-22-9946Mnktyko encounter /03/2025 4:30 PM EDT Office Visit [facility] [address] [place] [address] Robbin Sánchez, DPM [address] [place] [address] ArrivedNOMS [facility] PODIATRYComment on above:ArrivedStart: 04-06-2025 End: 25-30-1250Qgjrlixexc [Mass/volume] in Serum or PlasmaCreatinine, Serum Lab Routine Right foot pain Expected: 04/06/2025 (Approximate), Expires: 04/06/2026 [facility] HealthcareComment on above:Expected: 04/06/2025 (Approximate), Expires: 04/06/2026Start: 04-06-2025 End: 73-61-1173TV Foot - right WO and W contrast IVMR foot right w and wo IV contrast Imaging STAT Right foot pain Expected: 04/06/2025, Expires: 04/06/2026 [facility] Work Phone: comment on above:Expected: 04/06/2025, Expires: 04/06/2026Start: 03-14-2025 End: 77-30-1963Qlafrmm encounter procedureNOMS [facility] NEUR BStart: 02-13-2025 End: 46-90-1332Puebilr encounter dtbampnzm69/12/2025 1:00 PM EDT Office Visit [facility] [address] [address] Trace Casas MD [address] [facility] [address] [place] [address] [facility] NEURStart: 57-61-2662Orfeahnauf MonitoringDepression MonitoringBON UNIVERSITY HOSPITALS [facility]LEVEL[facility] MEDICAL CENTERStart: 11-15-2024 End: 80-09-2337Yvighpb encounter nlychoazy71/11/2025 2:45 PM EST Office Visit [facility] [address] [place] [address] Felipe Adam MD [address] [place] [address] 6 [facility] CenterComment on above:6 moStart: 11-14-2024 End: 76-12-9766Illfdrx encounter procedureNOMS [facility] NEURComment on above:Arrived Start: 11-11-2024 End: 51-40-5620Inkegtl encounter gylxpqlmi20/07/2025 1:00 PM EST Office Visit [facility] [address] [place] [address] Felipe Adam MD [address] [place] [address] 6 [facility] Health CenterComment on above:6 moStart: 89-68-1663Axkaxjlxt for malignant neoplasm of cervixBON SECOURS SELECT [facility]HABIL[facility]ATION HOSPITALStart: 09-14-2024 End: 04-65-8315Jnmtmhp encounter ropuwlqgs20/11/2024 11:20 AM EST Office Visit [facility] [address] [facility] [address] [place] [address] Fozia Meng, PERMASTONE MECHANIC [address] [phone] ArrivedNOMS [facility] NEURComment on above: ArrivedStart: 98-69-5303RDpG/Tdap/Td vaccine (2 - Td or Tdap)DTaP/Tdap/Td vaccine (2 - Td or Tdap)[facility] CenterStart: 23-48-6260VWcD/Tdap/Td vaccine (2 - Td)DTaP/Tdap/Td vaccine (2 - Td)[facility] KYStart: 91-62-8632Qdabtpw vaccinationOhioHealthStart: 09-05-2024 End: 86-66-4838Guyhlsb encounter julukcwft54/02/2024 1:00 PM EST Office Visit [facility] [address] [facility] [address] [place] [address] Trace Casas MD [address] [address] [facility] NEURStart: 08-18-2024 End: 44-53-8862Libvmde encounter mwshodegp81/14/2024 1:30 PM EST Office Visit [facility] [address] [place] [address] Luis Mclean, PACharitoC [address] [facility] [address] [facility] [address] [place], [place] [address] 1 yr med chkMTuscarawas Hospital UrologyComment on above:1 yr med chkStart: 08-02-2024 End: 28-92-0625Mdnpjdj encounter jypkijiab09/29/2024 10:45 AM EDT Office Visit [facility] WN NEURO [address] [place] [address] Cheryl Miles DO [address] [place] [address] [facility] WNZ NEUROStart: 07-11-2024 End: 10-18-9914Lqrgojbdsvsg consultation with iiqprqp1807/11/2024 11:30 AM EDT Telemedicine [facility] NEURO [address] [place] [address], [place] [address] Janel Allen PERMASTONE MECHANIC [address] [place] [address] [facility] NEURO 210Start: 06-10-2024 End: 77-76-7830Pcclrkt encounter qidwstexn74/06/2024 10:20 AM EDT Office Visit [facility] NEUR [address] [facility] [address] [place] [address] Trace Casas MD [address] [place] [address] ArrivedNOMS SWS NEURComment on above: ArrivedStart: 88-53-2827OCPTA-19 Vaccine ( season)COVID-19 Vaccine ( season)Bon [place]art: 68-89-4570HGHKQ-19 Vaccine ( season)COVID-19 Vaccine ( season)[facility]HealthStart: 06-05-2024 Influenza vaccinationInfluenza Vaccine (#1)[facility]: 19-66-8877Gdtdjgagt for malignant neoplasm of colonBon Centervilleart: 89-42-4090JXE test (Diabetes, CKD 3-4, OR last GFR 15-59)GFR test (Diabetes, CKD 3-4, OR last GFR 15-59)[facility] Hospitalart: 76-50-5088Yafhtbdg screenDiabetes screen [facility] Centerart: 05-12-2024 End: 90-92-0215Yntyyrt encounter apscgxfrg96/08/2024 11:00 AM EDT Office Visit [facility] PUL Part of [address] [address] [address] [facility] [place] [address] BUCK (obstructive sleep apnea)[facility] PUL Part of Backus HospitalComment on above: BUCK (obstructive sleep apnea)Start: 04-59-6001Qbvue panelLipid [facility], KYStart: 31-59-5382Fxknp screenLipid [facility], [place] Start: 51-21-9593Ibajezned vaccinationFlu vaccine (#1)[facility] Start: 27-06-9063Vbquruikcn MonitoringDepression MonitoringBON [facility] Hospitalart: 99-77-5081IRW test (Diabetes, CKD 3-4, OR last GFR 15-59)GFR test (Diabetes, CKD 3-4, OR last GFR 15-59)[facility] Hospitalart: 02-06-2024 Hemoglobin A1c wntdoufvkduX5Z test (Diabetic or Prediabetic)[facility] Hospitalart: 08-13-2023 End: 09-33-7467Anumshn encounter procedureUpper Valley Medical Center Andre UrologyStart: 06-22-2023 End: 65-47-6225Uemaqoy encounter pjworuqlc55/18/2023 11:15 AM EDT Office Visit [facility] [address] [place], [place] Felipe Adam MD [address] [place] [address] [facility]: 06-05-2023 Influenza vaccinationSequential Influenza Vaccine (Season Ended)[facility] Hospitalart: 50-53-3655Gwqejrexv vaccinationBON [facility]: 04-14-2023 End: 01-79-4653Xheayrm encounter vfsglmgus09/11/2023 Office Visit Family Medicine Felipe Adam MD [address] [place] [address] [facility]: 96-14-4410Kqiwsesxqu A1c fxvfppxcdylO9W test (Diabetic or Prediabetic)Critical access hospital: 72-78-8905Hziwandcfh MonitoringDepression MonitoringBON [facility] Start: 40-77-2966Lmvgway and physical examination, annual for health maintenance Wellness VisitOhioHealthStart: 12-25-2022 End: 21-85-9782Vjrietf encounter gmqixbspb39/23/2023 Office Visit Infectious Diseases Dav aHrtman MD [address] [address] [facility]Start: 15-71-8982Nblfutjv screenDiabetes [facility] Centerart: 08-07-2022 End: 17-92-0850Vjzwdne encounter iwssbpkth41/03/2022 Office Visit Urology Luis Mclean PA-C [address] [facility] [place] [address] [facility] UrologyStart: 07-15-2022 End: 64-39-5756Ksjfdxu evaluation of patient and bnbjcr1707/15/2022 Nurse Only Family MedicineShenandoah Medical CenterwichStart: 07-09-2022 End: 99-34-9442Gjidpsy encounter riaswwnbi61/05/2022 Appointment IP Unit Samantha Lino RD, LD [facility] Diet and NutritionStart: 06-05-2022 Influenza vaccinationPromedica Defiance Regional Hospital HealthStart: 81-99-3719Edbggxocsk measurementPromedica Defiance Regional Hospital HealthStart: 80-82-7997Kaiwfqmii [Moles/volume] in Serum or PlasmaPotassiumPromedica Defiance Regional Hospital HealthStart: 96-16-6400Fthlrqtac monitoringPotassium monitoringPromedica Defiance Regional Hospital Health Start: 40-69-6722Fugiygvyez measurementCreatinine monitoringUpper Valley Medical Center Work Phone: start: 32-87-2356Fnorifstk monitoringPotassium monitoringUpper Valley Medical Center Work Phone: start: 63-67-1390Eoycnosop vaccinationFlu vaccine (#1) SID PETER [facility] HOS[facility]ITALStart: 39-64-6078Ldxlfqdbj for malignant neoplasm of cervixOhioHealthStart: 02-05-2022 End: 60-20-4331Wvbhubr encounter otfmmfnpu13/04/2022 Appointment Physical Therapy Christel Donohue PTMWHZ Physical TherapyStart: 02-03-2022 End: 47-83-1072Hmknjqv encounter procedureMWHZ Physical TherapyStart: 01-30-2022 End: 33-77-0637Dbnicdq encounter procedureCenterville UrologyStart: 01-29-2022 End: 31-04-9407Deygjmq encounter idqidhqrz70/27/2022 Appointment Physical Therapy Beverly Rangel PTAMWHZ Physical TherapyStart: 01-27-2022 End: 04-45-5664Daacxdj encounter synjvynax13/25/2022 Appointment Physical Therapy Christel Donohue PTMWHZ Physical TherapyStart: 01-24-2022 End: 03-58-7674Vnkoste encounter sizrpjxwi16/22/2022 Appointment Physical Therapy Vanessa Garcia PTMWHZ Physical TherapyStart: 01-22-2022 End: 60-10-1467Xcywanl encounter uzxqkgtmq51/20/2022 Appointment Physical Therapy Beverly Rangel PTAMWHZ Physical TherapyStart: 01-17-2022 End: 01-39-5848Qoodwrm encounter jkthzclvy80/15/2022 Appointment Physical Therapy Beverly Rangel PTAMWHUzair Physical TherapyStart: 01-10-2022 End: 95-01-5788Sqxizzc encounter naiqwfrmg59/08/2022 Appointment Physical Therapy Christel Donohue PTMWHZ Physical TherapyStart: 01-08-2022 End: 13-23-1410Otsffpw encounter lvwsupipu56/06/2022 Appointment Physical Therapy Beverly Rangel PTAMWHUzair Physical TherapyStart: 01-02-2022 End: 45-16-2276Tuofjgu encounter laspiginz43/31/2022 Appointment Occupational Therapy Judi Marie OTA [address] [place] [address] [facility] Occupational TherapyStart: 97-88-7006Zyjvxgtn screenDiabetes screen [place], [place]Start: 12-31-2021 End: 29-83-0034Htnuxdn encounter procedureMZ Physical TherapyStart: 12-30-2021 End: 31-58-9004Xoulsio encounter pbibziefu15/28/2022 Appointment Occupational Therapy Cheryl Herman OTMWHUzair Occupational TherapyStart: 12-27-2021 End: 42-37-7551Lsnbktm encounter zutgjtgwd13/25/2022 Appointment Occupational Therapy Eve Gaspar OTAMWHZ Occupational TherapyStart: 11-14-2021 End: 35-99-8930Iywpoiw encounter lsrtxtamo69/10/2022 Office Visit Family Medicine Felipe Adam MD [address] [place] [address] [phone] [facility]Start: 41-55-7659Cbhwynkfxz MonitoringDepression MonitoringMercy HealthStart: 57-97-2306Zmjbkkoqwi measurementCreatinine monitoringMercy Health Work Phone: start: 97-37-3690Qgrobalqr monitoringPotassium monitoringMercy Health Work Phone: start: 08-01-2021 End: 42-65-9197Rxzrwyj encounter gvpnkduvg81/28/2021 Office Visit Urology Lita Weeks MD [address] [facility], [address] [place], [place] [phone] [facility] Hospitalard UrologyStart: 06-05-2021 Influenza vaccinationUpper Valley Medical CenterStart: 78-95-7557Gejmnybmmq measurement Creatinine monitoringSouthview Medical Center, KYStart: 83-92-2492VdE7h (Bld) [Mass fraction]A1C test (Diabetic or Prediabetic)[facility], KYStart: 05-25-2021 Hemoglobin A1c zkgsnpltojxZ3W test (Diabetic or Prediabetic)[facility] [employer] Work Phone: start: 22-76-0286Naxbcigru monitoringPotassium [facility], KYStart: 11-13-2020 End: 98-00-7781Tovczy Visit11/13/2020 Office Visit Family Medicine Felipe Adam MD [address] [place] [address] [phone] [facility] Care [facility] HospitalStart: 69-16-8990Hoqatvlkf monitoringPotassium monitoringSouthview Medical Center, KYStart: 10-23-2020 End: 23-61-0705Olqdfc Visit10/23/2020 Office Visit Infectious Diseases Dav Hartman MD [address] [facility] [address] [place], [place] [address] [facility]Start: 02-00-9924NhE3x (Bld) [Mass fraction]A1C test (Diabetic or Prediabetic)[facility] NextPotentialSAINT FRANCIS [facility] & [facility] SERVICES, KYStart: 50-27-4729Xabidhqeqc measurementCreatinine monitoringPromedica Defiance Regional Hospital Health [place], KYStart: 94-94-6774Jdfdpkllmx monitoringCreatinine monitoringPromedica Defiance Regional Hospital Health [place], KYStart: 17-84-5308Iuybuetmm monitoringPotassium monitoringPromedica Defiance Regional Hospital Health- [place], [place]Start: 06-12-2020 End: 16-84-7901Oloall Visit06/12/2020 Office Visit Infectious Diseases Dav Hartman MD [address] [place], [place] [address] [facility], [facility] CenterStart: 40-49-3610Fbqlqifcg vaccinationFlu vaccine (#1)[facility]: 68-98-6918Ombzppkd cancer screenCervical cancer screenLutheran Hospital: 83-94-4396Yfclyoxie for malignant neoplasm of cervixMissouriHealthStart: 11-01-2019 End: 51-19-2481Rsyfow Visit11/01/2019 Office Visit Infectious Diseases Dav Hartman MD [address] [place], [place] [address] [facility], [facility] CenterStart: 07-28-2019 End: 23-84-0279Avibif Visit07/28/2019 Office Visit Infectious Diseases Dav Hartman MD [address] [place] [address] [phone] [facility], [facility].Start: 06-27-2019 End: 98-86-8273Sfvve Only06/27/2019 Nurse Only Family [facility] Primary Care [facility] HospitalStart: 97-79-8774Jgcfnuxec vaccinationFlu vaccine (#1)[facility]: 10-25-0429Hsdpanbuh vaccination givenSEQUENTIAL INFLUENZA VACCINE (Season Ended)[facility]HealthStart: 20-34-2932Ybdoowszs for malignant neoplasm of breastMissouriHealthStart: 77-00-5621Djrjzwqsg vaccinationINFLUENZA VACCINE (#1)[facility] Work Phone: Start: 03-23-2018 End: 71-54-5843QjkavomlmpUyngIbaqtj Primary Care Women's HealthStart: 2009 Screening for malignant neoplasm of cervixHPV (without or with Pap)SID PETER [facility] HOSPITALStart: 91-21-2550Scdlggypg for malignant neoplasm of cervixPAP SMEAR [facility] Work Phone: Start: 65-32-2365Nrmylecsg B vaccine (1 of 3 - 19+ 3- dose series)Hepatitis B vaccine (1 of 3 - 19+ 3-dose series)Bon Bulmarolynnette [facility] CenterStart: 77-03-3219Jrhqi diphtheria, tetanus and acellular pertussis (DTaP) vaccinationTDAP (ADULT)[facility] Work Phone: Start: 12-54-7912Pduhawsdc C screeningHepatitis C ScreeningMiddletown HospitalStart: 47-12-3678Isqjyre vaccinationTETANHarrison Community Hospital Work Phone: Start: 15-30-6911AUSWZ-19 Vaccine (1)COVID-19 Vaccine (1)[employer] Work Phone: start: 45-15-0122OTL screenHIV screenSouthview Medical Center, KYStart: 76-45-9023UFQ screeningHIV screenUpper Valley Medical CenterStart: 66-55-6930MTV screeningHIV SCREENING [facility] Work Phone: Start: 01-38-3719OMAGR-19 Vaccine (1)COVID-19 Vaccine (1)[employer] Work Phone: start: 54-68-5208Mewwetmusa MonitoringDepression MonitoringUpper Valley Medical CenterStart: 59-49-8151Jkjqjqbpie screening using PHQ-9 (Patient Health Questionnaire 9) scoreOhioHealthStart: 26-66-8156Relqv screening for proteinUrine MicroalbuminOhioHealthStart: 89-79-2601Gsibawtnsayk Vaccine: Ped or At-Risk (1 - PCV)Pneumococcal Vaccine: Ped or At-Risk (1 - PCV)[facility]HealthStart: 59-12-1859VRUMZ-19 Vaccine (1)COVID-19 Vaccine (1)[facility] CenterStart: 1982 History and physical examination, annual for health maintenanceSpotsylvania Regional Medical Center Visit MissouriHealthStart: 11-54-7284STHTN-19 Vaccine (#1)COVID-19 Vaccine (#1)Critical access hospital: 62-30-9803Qkacsvzgy B vaccine (1 of 3 - 3-dose series) Hepatitis B vaccine (1 of 3 - 3-dose series)Critical access hospital: 74-00-0261Ygjdoweru for malignant neoplasm of colonIlioOhio State Health System End: 79-08-1341OHGKY-19COVID-19 Lab Routine Suspected COVID-19 virus infection 1 Occurrences starting 02/13/2021 until 02/13/2021[facility] Work Phone: comment on above:1 Occurrences starting 02/13/2021 until 02/13/20219778SFXPF-20FFUPD-65 Lab Routine Suspected COVID-19 virus infection 02/13/2021 3:06 PM [employer] Phone: End: 62-35-0013ATNLR-19 AmbulatoryCOVID-19 Ambulatory Lab Routine SOB (shortness of breath) 1 Occurrences starting 08/08/2020 until 08/08/2020[facility], MTComment on above:1 Occurrences starting 08/08/2020 until 08/08/2020COVID-19 AmbulatoryCOVID-19 Ambulatory Lab Routine SOB (shortness of breath) 08/08/2020 4:02 PM [facility], [place] End: 39-24-5529Gjberycdbd [Mass/volume] in UrineCreatinine, Random Urine Lab Routine Once for 1 Occurrences starting 05/20/2021 until 05/20/2021[facility] HospitalChar[facility] Phone: comment on above:Once for 1 Occurrences starting 05/20/2021 until 1Creatinine [Mass/volume] in UrineCreatinine, Random Urine Lab Routine 05/20/2021 7:57 PM [employer] Phone: End: 19-04-8505Lidcyyu, UrineCulture, Urine Microbiology Routine Acute cystitis with hematuria 1 Occurrences starting 04/13/2021until 04/13/2021[facility] Hospital[facility] Work Phone: comment on above:1 Occurrences starting 04/13/2021 until 1Culture, UrineMerCharitas Phone: End: 02-19-4943Zhbsmka, UrineCulture, Urine Microbiology Routine Difficult or painful urination 1 Occurrences starting 05/27/2021 until 05/27/2021[employer] Phone: comogjv on above:1 Occurrences starting 05/27/2021 until 05/27/2021 End: 88-19-4127Baxytjn, UrineCulture, Urine Microbiology Routine Acute cystitis with hematuria Recurrent UTI 1 Occurrences starting 06/11/2021 until 06/11/2021 [employer] Phone: comopsi on above:1 Occurrences starting 06/11/2021 until 06/11/2021 End: 07-60-7833Pbkhqwh, UrineCulture, Urine Microbiology Routine Frequent UTI Urinary urgency Urinary frequency 1 Occurrences starting 07/11/2021 until 07/11/2021[employer] Phone: comzzup on above:1 Occurrences starting 07/11/2021 until 07/11/2021 End: 83-41-1872Wltcrzv, UrineCulture, Urine Microbiology Routine Frequent UTI Urinary urgency Urinary frequency 1 Occurrences starting 08/01/2021 until 08/01/2021[employer] Phone: comqpzy on above:1 Occurrences starting 08/01/2021 until 08/01/2021 End: 82-21-0771Zfbjorl, UrineCulture, Urine Microbiology Routine Acute cystitis with hematuria 1 Occurrences starting 04/28/2022until 04/28/2022[employer] Phone: comvtzj on above:1 Occurrences starting 04/28/2022 until 04/28/2022 End: 65-76-1613Ppffzgi, UrineBON [employer] Phone: comatzj on above:1 Occurrences starting 02/05/2023 until 02/05/2023 End: 81-91-0394Qzklcgw, Wound (with Gram Stain)Bon [employer] City RacersComment on above:One Time for 1 Occurrences starting 04/04/2025 until 04/04/2025 End: 41-28-9229POB Breast - bilateral screeningBon SecJielan Information CompanyComment on above:1 Occurrences starting 02/15/2025 until 02/15/2025 End: 36-73-5061Amcxsmpoas A1c/Hemoglobin.total in BloodBON SECGaatu Work Phone: comment on above:1 Occurrences starting 04/12/2022 until 04/12/2022 End: 52-32-5791Yzkcmvnxnw A1c/Hemoglobin.total in BloodBON SECGaatu Work Phone: Comment on above:Once for 1 Occurrences starting 02/05/2023 until 02/05/2023 End: 11-88-9014Cqtrpmpdpd A1c/Hemoglobin.total in BloodBon SecJielan Information Company Comment on above:1 Occurrences starting 08/02/2025 until 08/02/2025 End: 12-52-9953Dtuv Sleep StudyFitchburg General Hospitale Sleep Study [facility] Routine One Time for 1 Occurrences starting 08/29/2019 until 08/29/2019[facility] HospitalCode Green NetworksSAINT FRANCIS HOSPITAL & HEALTH SERVICES, [place] Comment on above:One Time for 1 Occurrences starting 08/29/2019 until 08/29/2019 End: 99-90-7964Lbnfwitruyrvy Acid, SerumMethylmalonic Acid, Serum Lab Routine Once for 1 Occurrences starting 09/24/2019 until 09/24/2019[facility] HospitalChar[facility] Phone: comvfwk on above:Once for 1 Occurrences starting 09/24/2019 until 09/24/2019Methylmalonic Acid, SerumMethylmalonic Acid, Serum Lab Routine 09/24/2019 9:33 AM [employer] Work Phone: End: 03-66-9035Odglyvv Ab [Titer] in Serum by ImmunofluorescenceANA Lab Routine Once for 1 Occurrences starting 09/24/2019 until 09/24/2019[facility]: comjtcq on above:Once for 1 Occurrences starting 09/24/2019 until 09/24/2019Nuclear Ab [Titer] in Serum by ImmunofluorescenceANA Lab Routine 09/24/2019 9:33 AM [employer] Phone: End: 07-66-0940Rqzmlgf, urine, randomProtein, urine, random Lab Routine Once for 1 Occurrences starting 05/20/2021 until 05/20/2021[employer] Phone: comment on above:Once for 1 Occurrences starting 05/20/2021 until 1Protein, urine, randomProtein, urine, random Lab Routine 05/20/2021 7:57 PM [employer] Phone: End: 60-38-5117Hzafphjttqeev RateSedimentation Rate Lab Routine MRSA (methicillin resistant Staphylococcus aureus) septicemia (HCC) 1 Occurrences starting 12/14/2019 until 12/14/2019[facility] above:1 Occurrences starting 12/14/2019 until 12/14/2019Sedimentation RateSedimentation Rate Lab Routine MRSA (methicillin resistant Staphylococcus aureus) septicemia (HCC) 12/14/2019 12:39 PM [employer] [place] End: 78-96-8653Pqzafzhe syndrome-A extractable nuclear antibodySjogrens syndrome-A extractable nuclear antibody Lab Routine Once for 1 Occurrences starting 09/24/2019 until 09/24/2019[employer] Phone: comment on above:Once for 1 Occurrences starting 09/24/2019 until 09/24/2019Sjogrens syndrome-A extractable nuclear antibody Sjogrens syndrome-A extractable nuclear antibody Lab Routine 09/24/2019 9:33 AM [employer] Phone: End: 86-53-7858Cflpwbqn syndrome-B extractable nuclear antibodySjogrens syndrome-B extractable nuclear antibody Lab Routine Once for 1 Occurrences starting 09/24/2019 until 09/24/2019[employer] Phone: comtoyb on above:Once for 1 Occurrences starting 09/24/2019 until 09/24/2019Sjogrens syndrome-B extractable nuclear antibody Sjogrens syndrome-B extractable nuclear antibody Lab Routine 09/24/2019 9:33 AM [employer] Phone: End: 47-98-6460Rlrth Study with PAP TitrationSleep Study with PAP Titration Sleep Center Routine One Time for 1 Occurrences starting 09/12/2019 until 09/12/2019[employer] Phone: comment on above:One Time for 1 Occurrences starting 09/12/2019 until 09/12/2019 End: 53-60-7835Dydljit R8Ctrjvwq B6 Lab Routine Once for 1 Occurrences starting 09/24/2019 until 09/24/2019[employer] Phone: comment on above:Once for 1 Occurrences starting 09/24/2019 until 09/24/2019Vitamin R6Ohdpmig B6 Lab Routine 09/24/2019 9:33 AM [employer] Phone: XR Cervical spine 4 or 5 ViewsXR cervical spine complete 4 to 5 views Imaging Routine Cervical paraspinal muscle spasm 512:45 PM EDTNOSD Healthcare Immunizations Immunization DateImmunizationNotesCare JpofpywyFwhqpkbj36-03-9921bakqnxm toxoid, reduced diphtheria toxoid, and acellular pertussis vaccine, adsorbedBilly Back [facility] [place] Payers DatePayer CategoryPayerPolicy [id number] Care HMO (unspecified)[facility] HMO/CHOICE PLUS/DULCE/DULCE PLUS [id number] Health Insurance [id number]rux Health [id number] 1.2.840.349194.1.13.239.2.7.3.732817.62656-70-9711Qilm-qhz [id number] Cross Blue Shield (Indemnity or Managed Care) - Out of StateBCBS OUT OF STATE [facility] [place] Sub[place] Plan / Payer (Effective 2017-Present) Name: Celina Gaspar Relation to Subscriber: Spouse Name: ROBIN GASPAR Date of : 1980 Address: [address] [place] [address] Payer ID: [id number] (NAIC) Type: Not on file Address: [facility] [id number] [place] [id number]165Jcydbfs98-56-2634Fpeilat [id number] 1.2840.295185.1.13.239.2.7.3.226701.315 [id number] [id number] 2014MedicaidCARESOURCE MANAGED MEDICAID [facility] MEDICAID xxxxxxxxxxx 2014-Presentxxxxxxxxxxx [id number] 840.1.334921.3.57[id number] .1.139450.3.57[id number] 2.16840.1.778533.3.579.[id number] 2.16840.1.393515.3.579.2.83896-83-8391Xwuwwcg61339226 2.16840.1.406540.3.579.[id number] 2.840.1.924052.3.579.[id number] 2.840.1.329628.3.57[id number] 2.840.1.398929.3.579.2.87727-21-0012Vbxgxui148423289 2.840.1.490183.3.579.2.04908-76-6270Mcqkeyw7008847 2.840.1.170526.3.579.2.48800-96-4267Kgwgtmc8285117 2.840.1.514740.3.579.2.91437-52-5936Dgefmge5449202 2.840.1.918752.3.579.[id number] 2.840.1.711131.3.579.2.58069-90-0651Buqobhc897468282 2.840.1.933475.3.579.2.55654-86-3012Hmkbhlt17056393 2.16840.1.025429.3.579.2.77517-97-0041Pfavwyn31447740 2.840.1.067259.3.579.2.838673-14-5738Rwyadqe84235030 2.0.1.008143.3.579.2.292111-35-5232Kwjzrjt81387478 2..1.074829.3.579.2.008454-47-6586Qjnadzw21720148 2.0.1.516512.3.579.2.102028-52-1470Zaipjsd82405569 2..1.170341.3.579.[id number] 2..1.605318.3.579.2.992265-86-2118Vxdgbfo3316344 2..1.940422.3.579.2.021188-81-3814Cjgjwzg0194946 2..1.258865.3.579.2.425431-65-1736Pncscrh1286738 2..1.863706.3.579.2.095126-21-6277Gfrzkfy8803270 2..1.258694.3.579.2.350256-91-7654Qngpmsn8500804 2..1.327690.3.579.2.487444-82-4647Wxvsnil66227304 2..1.511093.3.579.2.51779-10-7095Ccumayu05648493 2..1.729858.3.579.2.99322-98-4400Zxbwamt47984448 2..1.798152.3.579.2.98042-08-9048Tefampx90317137 2..1.263015.3.579.2.88556-80-0521Mzjmgqr94859902 2.0.1.057059.3.579.2.26376-78-1319Zfquksc02883651 2.16.840.1.073502.3.579.2.96609-64-4113Rxqlxjy62517064 2.16.840.1.866342.3.579.2.12573-28-4592Jkumtia44996391 2.16.840.1.774146.3.579.2.88303-55-6820Hxznmwl02808159 2.16.840.1.632662.3.579.2.81290-13-0381Vrssrfj67654323 2.16.840.1.296205.3.579.2.74773-30-1764OnosjhsLIT539141035659 1.2.840.979988.1.13.239.2.7.3.373577.464Ydwhxdh488Hjydbgz41693051 2.16.840.1.434825.3.579.2.531 Social History DateTypeDetailFacilityStart: 05-01-2015 End: 53-09-7191Hdxhdfx smoking status NHISNever smokerOhProMedica [facility]ost[facility] Work Phone: Start: 74-79-5016Yoq Assigned At BirthNot on file [facility] Work Phone: Start: 05-27-2019 End: 61-39-7082Ojodwcf intakeNoLutheran Hospital: 12-13-2019 End: 48-60-7623Nsjsepo intakeCurrent non-drinker of alcohol (finding)[facility]: 12-09-2019 End: 68-21-6724Mdpgarb SDOH Pphivxzbx1NxgkhLutheran Hospital: 12-09-2019 End: 97-21-9578Bxmwohy SDOH Food Uvjpa3UkrfiLutheran Hospital: 12-09-2019 History SDOH Transport Czc3PkdpuLutheran Hospital: 05-11-2020 End: 67-60-7021Pcblvzr use and exposureNever [facility]: 10-30-2021 End: 88-98-0853Ljfjlkyd to SARS-CoV-2 (event)Not sureLutheran Hospital: 68-80-1416Cmc [facility]: 75-46-3509Pfugefc SDOH Ctwspjprb4CGQ BULMAROGaatu Work Phone: start: 01-06-2023 End: 73-22-4188Uryebur of Social functionOhioHealthHow hard is it for you to pay for the very basics like food, housing, medical care, and heatingNot very hard WiseStampStart: 88-11-5726Wbgunsb Health Questionnaire 9 item (PHQ-9) total score [Reported]0[employer](I/We) worried whether (my/our) food would run out before (I/we) got money to buy more.Never trueBON iQ TechnologiesAt any time in the past 12 months, were you homeless or living in half-way [including now]?NoBON [facility] HEALTHStart: 10-09-2020 Gender identityIdentifies as female gender (finding)[employer] Start: 87-59-5761Tejnsa orientationHeterosexual (finding)[facility] HEALTHHow hard is it for you to pay for the very basics like food, housing, medical care, and heatingSomewhat hardBON [facility] HEALTHStart: 06-10-2024 End: 07-10-8469Gwpwcvlza beverage intakeLifetime non-drinker (finding)[facility] HealthcareStart: 16-80-2681Vhpphev CommentCaffeine Intake: Yes, popNOSD HealthcareStart: 29-43-0264GodTbnypg (finding)[employer] HealthHow often to you have a drink containing alcohol?NeverBon AxialMED HealthStart: 04-20-2025 End: 41-11-4888Jmkrqxhib beverage intakeEx-drinker (finding)[facility] Start: 59-45-3282Ulrdckn Comment1-2 times a yearNOSD HealthcareNEGATED: Highlighted rowStart: NINFHistory of tobacco usePassive smokerBON [facility] Functional Status DateAssessmentResultFaHenrico Doctors' [facility] Clinical Notes 12-23-2021 to 07-31-2025 Note Date & TfhlLlewMogafuzp63-34-3363 Telephone encounter Note* Telephone Encounter - Janel Allen NP - 07/31/2025 8:33 AM EDT OARRS reviewed. Sent. [facility] HospitalUlognnnaga84-38-9543 Miscellaneous Notes* Telephone Encounter - Janel Allen NP - 07/31/2025 8:33 AM EDT OARRS reviewed. Sent. documented in this encounterSullivan County Memorial HospitalPbcrekgyic19-73-7810 History of Present illness Narrative* Jennie Van [...] reflexes: Goyo's absent. Ankle clonus absent. Coordination Twyecv-fu-awpp, rapid alternating movements and cbpm-zg-dubg normal bilaterally without dysmetria. Gait Casual gait: [...] Continue current management plan documented in this encounterSullivan County Memorial HospitalDzehchsymb05-58-8928 Telephone encounter Note* Telephone Encounter - Paresh Cary - 05/23/2025 9:36 AM EDT Patient same day canceled due to her foot being in a boot and cannot drive by herself. [facility] HospitalSynrniffme15-86-8443 Miscellaneous Notes* Telephone Encounter - Paresh Luis Daniel - 05/23/2025 9:36 AM EDT Patient same day canceled due to her foot being in a boot and cannot drive by herself. documented in this encounterSullivan County Memorial HospitalSdlhgunqbo80-16-6784 History of Present illness Narrative* Robbin Sánchez, [...] next visit with xra documented in this encounterSullivan County Memorial HospitalLwpbwmnslj88-58-4848 Evaluation note* Diagnosis Chronic renal impairment, stage [...] 3a (HCC) documented in [facility] encounter [facility] Evaluation note* Diagnosis Chronic renal impairment, stage 3a (HCC)- Primary Depression with anxiety Dysthymic disorder Gastroesophageal reflux disease without esophagitis Esophageal reflux Vitamin D deficiency Unspecified vitamin D deficiency Mixed hyperlipidemia BUCK on CPAP Obstructive sleep apnea (adult) (pediatric) Restless legs Restless legs syndrome (RLS) Hyperglycemia Other abnormal glucose Pain in right foot Pain in limb documented in this encounter [facility]07-[facility] History of Present illness Narrative* Robbin Sánchez, INDER - 04/06/2025 4:30 PM EDT Celina Gaspar is a 44 y.o. female presents with chief complaint of Foot Ulcer (RT toe 2 ulcer) HPI: HPI Pt has ulcer on RT toe 2 for about 2 wks. She went to [facility] ER on 04-04-25, xrays, culture and [...] toe or midfoot but also Charcot MRI [facility] 04-11-25 11:30 AM, arrive at 11:00 AM. Pt notified. documented in this encounterSullivan County Memorial HospitalRyggcejidu93-35-0477 Evaluation note* Diagnosis Chronic renal impairment, stage [...] laterality- Primary documented in this encounter [facility] History of Present illness Narrative* Lynn [...] current (Dreamwear) mask. See below. Get all [facility] ([facility] Weight loss. 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 Lab Frequency Next Occurrence Therapeutic injection carpal [...] Neurology ? [address] ? [place], [place] [address] ? ? fax Neurology ? Clinical Neurophysiology ? Epilepsy ? Sleep Disorders ? Clinical Informatics documented in this encounterSullivan County Memorial HospitalGnanzrdtgz12-65-5786 Evaluation note* Diagnosis Chronic renal impairment, stage [...] screening mammogram documented in [facility] encounter [facility] History of Present illness Narrative* Trace Casas [...] Not at risk (11/15/2024) Received from [facility] PHQ-2 PHQ-9 Total Score: [...] reflexes: Goyo's absent. Ankle clonus absent. Coordination Fnegce-zc-uesv, rapid alternating movements and bejf-br-zaqz normal bilaterally without dysmetria. Gait Normal casual, toe, heel and tandem gait. Romberg is absent. 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 She continues to have significant discomfort in her feet to interrupt her sleep. This is likely worsened by Azdcbyb-Xygkx-Gzsmk for which she had surgery in February [...] She will take this to [facility] in [place]. We will get the original sleep study from [facility] for review. She is following with Dr. Block for sleep medicine. EVALUATION: PSG 03/2024 - CPAP 65dfZ61 w/heated humidification EMG of BUE 11/25 showed [...] by Trace Casas MD documented in this encounterSullivan County Memorial HospitalWtlorwpbew41-19-7081 History of Present illness Narrative* Lynn Block [...] in all four extremities, including at least alignment technician, finger abductors, biceps, triceps, deltoid, toe [...] [address] ? [place] [address] ? ? fax Neurology ? Clinical Neurophysiology ? Epilepsy ? Sleep Disorders ? Clinical Informatics documented in this encounterSullivan County Memorial HospitalIdrydpuvki62-48-4159 Telephone encounter Note* Telephone Encounter - Janel Allen NP - 11/02/2024 9:16 PM EST Pharmacy sends medication clarification for nortriptyline as there are two directions on one received. Per ONUR Gunderson plan increase nortriptyline 50 mg 2 daily/bedtime total of 100 mg. [facility] HospitalMoqdbpbcdc48-88-5332 Miscellaneous Notes* Telephone Encounter - Janel Allen NP - 11/02/2024 9:16 PM EST Pharmacy sends medication clarification for nortriptyline as there are two directions on one received. Per ONUR Gunderson plan increase nortriptyline 50 mg 2 daily/bedtime total of 100 mg. documented in this encounterSullivan County Memorial HospitalJwhrfqtqrm76-26-[address] [place] [address] (11) [facility] [address] [place] [address] MEDICAL OFFICE [facility] [address] Dept: [phone] Loc: [phone] MD Celina Browne 44 y.o. female Patient [...] Resource Strain: Medium Risk (05/08/2024) Received from [facility] Overall Financial Resource Strain (CARDIA) Difficulty of Paying Living Expenses: Somewhat hard Food Insecurity: No Food Insecurity (05/08/2024) Received from [facility] Hunger Vital Sign Worried About Running Out of Food in the Last Year: Never true Ran Out of Food in the Last Year: Never true Transportation Needs: Unknown (05/08/2024) Received from [facility] PRAPARE - Transportation Lack of Transportation (Non-Medical): No Housing Stability: Unknown (05/08/2024) Received from [facility] Housing Stability Vital Sign Unstable Housing [...] of submandibular glands, clear salivary flow from Buffalo's ducts, no stones of Buffalo's ducts Temporomandibular Joint: no crepitus with motion, no tenderness on palpation, no mayo (more content not included)...[facility] Cktegekoec28-51-6498 History of Present illness Narrative* Dimas Adair MD - 10/11/2024 10:05 AM EST [facility] [address] (11) [facility] [address] MEDICAL OFFICE BUILDING [facility] [address] Dept: [phone] Loc: [phone] MD Celina Browne 44 y.o. female Patient [...] Resource Strain: Medium Risk (05/08/2024) Received from [facility] Overall Financial Resource Strain (CARDIA) Difficulty of Paying Living Expenses: Somewhat hard Food Insecurity: No Food Insecurity (05/08/2024) Received from [facility] Hunger Vital Sign Worried About Running Out of Food in the Last Year: Never true Ran Out of Food in the Last Year: Never true Transportation Needs: Unknown (05/08/2024) Received from [facility] PRAPARE - Transportation Lack of Transportation (Non-Medical): No Housing Stability: Unknown (05/08/2024) Received from [facility] Housing Stability Vital Sign Unstable Housing [...] subma ndibular glands, clear salivary flow from Buffalo's ducts, no stones of Felipe's ducts Temporomandibular [...] Hematological: Negative. Psychiatric/Behavioral: Negative. documented in this banxqnibsNqsiCozaxj75-55-8043 Telephone encounter Note* Telephone Encounter - Gwen Meng - 09/14/2024 2:18 PM EST Voicemail Received: Our numbers [phone] actually have a question regarding a prescription that was prescribed today, If someone could please call me back. Thank you. Byjuanpablo. [facility] HospitalKdktwzueby08-37-6489 Miscellaneous Notes* Telephone Encounter - Gwen Meng - 09/14/2024 2:18 PM EST Voicemail Received: Our numbers [phone] actually have a question regarding a prescription that was prescribed today, If someone could please call me back. Thank you. Rosa Isela. documented in this encounterSullivan County Memorial HospitalMioktljtak26-91-8117 Miscellaneous Notes* Telephone Encounter - My Johnson - 08/11/2024 12:03 PM EST Patient called and requested refill of Lyrica to be sent to [facility] in [place]. documented in this encounterSullivan County Memorial HospitalGzjlnbtclm34-41-0154 Telephone encounter Note* Telephone Encounter - My Johnson - 08/11/2024 12:03 PM EST Patient called and requested refill of Lyrica to be sent to [facility] in [place]. [facility] HospitalQwlgrqpgev57-91-0597 History of Present illness Narrative* Tequila Obando [...] Grandfather Depression: At risk (01/28/2024) Received from [facility] PHQ-2 PHQ-9 Total Score: 6 REVIEW [...] reflexes: Goyo's absent. Ankle clonus absent. Coordination Wkafip-gv-yquq, rapid alternating movements and ouig-uf-ugni normal bilaterally without dysmetria. Gait Normal casual, [...] Follow up 3 months. documented in this encounterSullivan County Memorial HospitalFghtfhnily84-72-4168 History of Present illness Narrative* Cheryl Miles, [...] was counseled on the risks of stroke, RI, and sudden with BUCK, along with the [...] to clinic: 3-6 months documented in this encounterSullivan County Memorial HospitalQgpanumthq10-83-9524 History of Present illness Narrative* MASSIMO Shook [...] 2022. Shefollows with an outside provider in [place] and was immobilized for an extended period [...] Foot & Ankle Surgery documented in this dbuwrszeeSszxFbxuzm02-53-6414 NotePROCEDURE: XR ANKLE LT MIN 3 V, [...] authenticated by: PIPER MERCEDES Date: 2023-01-29 07:05[facility]04-27-2023 NotePROCEDURE: XR ANKLE LT MIN 3 [...] authenticated by: PIPER MERCEDES Date: 2023-01-29 07:05[facility]10-05-2022 History of Present illness Narrative* Samantha [...] BMR: 1573 calories Est. total calorie needs: ~2073-9277 Lab Results Component Value Date/Time TRIG 460 [...] bread Supper: pork chop or chicken, homemade micronesian fries, mashed, or baked potato with broccoli [...] session duration: 55 minutes. [facility] Phone: 1(326) 519-163005-04-2022 History of Present illness Narrative* Christel Donohue, PT - 02/05/2022 9:45 AM EDT [facility] Date: 02/05/2022 Patient Name: Celina Gaspar : 1980 Pt No Showed Appt- Follow up call, left message on voicemail that patient discharged, but to call if has questions or concerns. Christel Donohue, PT Date: 02/05/2022 documented in this encounterMag[facility]uder [facility] Hospital Phone: 1(776) 160-488805-04-2022 Hospital course Narrative* Christel Donohue, PT - 02/05/2022 9:45 AM EDT Images from the original note were not included. [facility] Outpatient Physical Therapy Discharge Summary Patient: Celina Gaspar : 1980 Referring Practitioner: Liliane Sawyer APRN, RISK MODELER Referral Date : 12/19/21 Diagnosis: Lumbar radiculopathy [...] Donohue, PT Date: 02/05/2022 [facility] this [facility] Phone: 1(994) 368-332605-02-2022 History of Present illness Narrative* Jerica Melgar - 02/03/2022 10:30 AM EDT [facility] Date: 02/03/2022 Patient Name: Celina Gaspar : 1980 Pt Cancelled Appt due to no reason for cancel. Jerica Melgar Date: 02/03/2022 documented in this [facility] Phone: 1(342) 373-529504-27-2022 History of Present illness Narrative* Beverly Rangel, JENNIFER - 01/29/2022 9:00 AM EDT Images from the original note were not included. [facility] Therapy Daily Note [...] Increase trunk ROM B rotation WFL-Not Met Rig Operator Goals - Time Frame for terminal make up operator goals : 10 Rig Operator Goals Time Frame for terminal make up operator goals : 10 terminal make up operator goal 1: Decrease pain low back 2/10 at worst x3 days for completing normal activities shelter goal 2: Patient to report 50% decrease in radicular symptoms L LE Post Treatment Pain: 5/10 Time In: 0859 Time Out: 0947 Timed Code Treatment Minutes: 48 Minutes Total Treatment Time: 48 Minutes Beverly Rangel PTA Date: 01/29/2022 documented in this [facility] Phone: 1(981) 540-434104-25-2022 History of Present illness Narrative* Christel Donohue, PT - 01/27/2022 3:45 PM EDT Images from the original note were not included. [facility] Therapy Daily Note [...] Increase trunk ROM B rotation WFL-Not Met Intermediate Goals - Time Frame for shelter goals : 10 Rig Operator Goals Time Frame for shelter goals : 10 terminal make up operator goal 1: Decrease pain low back 2/10 at worst x3 days for completing normal activities shelter goal 2: Patient to report 50% decrease in radicular symptoms L LE Post Treatment Pain: 4/10 Time In: 15:50 Time Out : 16:19 Timed Code Treatment Minutes: 34 Minutes Total Treatment Time: 34 Minutes Christel Donohue, PT Date: 01/27/2022 documented in this [facility] Work Phone: 1(244) 987-522904-22-2022 History of Present illness Narrative* Vanessa Castro Radha, PT - 01/24/2022 9:45 AM EDT Images from the original note were not included. [facility] Out[facility] Therapy Daily Note [...] 4: Increase trunk ROM B rotation WFL Rig Operator Goals - Time Frame for shelter goals : 10 Rig Operator Goals Time Frame for terminal make up operator goals : 10 terminal make up operator goal 1: Decrease pain low back 2/10 at worst x3 days for completing normal activities shelter goal 2: Patient to report 50% decrease in radicular symptoms L LE Post Treatment Pain: 5/10 Time In: 0952 Time Out: 1030 Timed Code Treatment Minutes: 38 Minutes Total Treatment Time: 38 Minutes Vanessa Garcia, PT Date: 01/24/2022 documented in this [facility] Phone: 1(424) 376-326104-20-2022 History of Present illness Narrative* Beverly Gutiérrez Rangel, BAG LOADER - 01/22/2022 4:45 PM EDT [facility] Date: 01/22/2022 Patient Name: Celina Gaspar : 1980 Patient did not show up for her appointment. Message left on answering machine with a reminder of her next appointment on Thursday. Beverly Brock Claire, BAG LOADER Date: 01/22/2022 documented in this [facility] Phone: 1(912) 750-854304-15-2022 History of Present illness Narrative* Beverly Gutiérrez Rangel, BAG LOADER - 01/17/2022 10:30 AM EDT Images from the original note were not included. [facility] Outpatient Physical Therapy Daily Note Date: 01/17/2022 Patient Name: Celina Gaspar : 1980 (41 y.o.) Referring Practitioner: Liliane Sawyer APRN, RISK MODELER Referral Date : 12/19/21 Diagnosis: Lumbar radiculopathy [...] 4: Increase trunk ROM B rotation WFL Intermediate Goals - Time Frame for terminal make up operator goals : 10 terminal make up operator goal 1: Decrease pain low back 2/10 at worst x3 days for completing normal activities terminal make up operator goal 2: Patient to report 50% decrease in radicular symptoms L LE Post Treatment Pain: 5/10 Time In: 1037 Time Out: 1107 Timed Code Treatment Minutes: 30 Minutes Total Treatment Time: 30 Minutes Beverly Rangel PTA Date: 01/17/2022 [facility] Phone: 1(773) 741-954104-11-2022 History of Present illness Narrative* ISAIAH Metzger - 01/13/2022 3:15 PM EDT [facility] Rehab and Wellness Date: 01/13/2022 Patient Name: Celina Gaspar : 1980 Pt Cancelled Appt due to no reason given. NABILA Metzger Date: 01/13/2022 [facility] Phone: 1(605) 270-693904-01-2022 History of Present illness Narrative* Beverly Rangel PTA - 01/03/2022 9:45 AM EDT Images from the original note were not included. [facility] Outpatient Physical Therapy Daily Note [...] 4: Increase trunk ROM B rotation WFL Intermediate Goals - Time Frame for shelter goals : 10 shelter goal 1: Decrease pain low back 2/10 at worst x3 days for completing normal activities terminal make up operator goal 2: Patient to report 50% decrease in radicular symptoms L LE Post Treatment Pain: 5/10 Time In: 0948 Time Out: 1028 Timed Code Treatment Minutes: 40 Minutes Total Treatment Time: 40 Minutes Beverly Rangel PTA Date: 01/03/2022 [facility] Phone: [phone]) 796-763703-29-2022 History of Present illness Narrative* Cheryl Herman OT - 12/31/2021 9:30 AM EDT Images from the original note were not included. [facility] Outpatient Occupational Therapy Daily Note [...] Time Frame for Short term goals: STG=LTG Rig Operator Goals Time Frame for shelter goals : 12 visits (01/24/2022) terminal make up operator goal 1: pt to be indepenent in HEP-MET terminal make up operator goal 2: Pt to demonstrate R wrist flexion to 65 degrees or more in order to engage in daily tasks-MET terminal make up operator goal 3: Pt to demonstrate R wrist extension to 60 degrees or more in order to engage in daily tasks-MET shelter goal 4: Pt to be educated on carpal tunnel do's & dont's in order to prevent further repetitive injury to wrist-MET Timed Code Treatment Minutes: 30 Minutes Time In: 915 Time Out: 945 Timed Coded Minutes: 30 Total Treatment Time: 30 THERESA Houser, OTR/L Date: 12/31/2021 [facility] Phone: [phone]) 325-650503-29-2022 Hospital course Narrative* Cheryl Castro NORMAN Herman - 12/31/2021 9:30 AM EDT Images from the original note were not included. [facility] Outpatient Occupational Therapy Discharge Summary [...] has been provided w/ HEP for continued pinch/alignment technician strengthening & stretching. Therapist provided pt with handout on Carpal Tunnel Dos & Dont's to avoid re-injury. Prognosis: Fair Goals Short Term Goals Time Frame for Short term goals: STG=LTG Intermediate Goals Time Frame for terminal make up operator goals : 12 visits (01/24/2022) shelter goal 1: pt to be indepenent in HEP-MET terminal make up operator goal 2: Pt to demonstrate R wrist flexion to 65 degrees or more in order to engage in daily tasks-MET shelter goal 3: Pt to demonstrate R wrist extension to 60 degrees or more in order to engage in daily tasks-MET shelter goal 4: Pt to be educated on carpal tunnel do's & dont's in order to prevent further repetitive injury to wrist-MET Reason for Discharge [] Poor Follow Through [] Completion of Prescribed Sessions [x] Optimal Function Achieved [] Patient Discharged Self [x] Goals Achieved Comments: Thank you for this referral THERESA Houser, OTR/L Date: 12/31/2021 [facility] Phone: [phone]) 318-524003-29-2022 History of Present illness Narrative* Christel Donohue, PT - 12/31/2021 8:30 AM EDT Images from the original note were not included. [facility] Outpatient Physical Therapy Evaluation Date: [...] 4: Increase trunk ROM B rotation WFL shelter goals Time Frame for shelter goals : 10 terminal make up operator goal 1: Decrease pain low back 2/10 at worst x3 days for completing normal activities shelter goal 2: Patient to report 50% decrease in radicular symptoms L LE Patient's Goal: Decrease back pain to complete normal activities Timed Code Treatment Minutes: 15 Minutes Total Treatment Time: 45 Time In: 8:30 Time Out: 9:15 Christel Donohue, PT Date: 12/31/2021 documented in this [facility] [employer] Work Phone: 1(533) 221-693103-28-2022 History of Present illness Narrative* Cheryl Herman OT - 12/30/2021 8:30 AM EDT Images from the original note were not included. [facility] Outpatient Occupational Therapy Daily Note [...] Time Frame for Short term goals: STG=LTG Intermediate Goals Time Frame for shelter goals : 12 visits (01/24/2022) shelter goal 1: pt to be indepenent in HEP-MET terminal make up operator goal 2: Pt to demonstrate R wrist flexion to 65 degrees or more in order to engage in daily tasks-MET shelter goal 3: Pt to demonstrate R wrist extension to 60 degrees or more in order to engage in daily tasks-MET terminal make up operator goal 4: Pt to be educated on carpal tunnel do's & dont's in order to prevent further repetitive injury to wrist-MET Time In: 835 Time Out: 915 Timed Coded Minutes: 40 Total Treatment Time: 40 THERESA Houser, OTR/L Date: 12/30/2021 [facility] Phone: [phone]) 979-317303-21-2022 History of Present illness Narrative* Cheryl Castro Batsheva, OT - 12/23/2021 8:30 AM EDT Images from the original note were not included. [facility] Outpatient Occupational Therapy Evaluation Date: [...] completing these mvmts Left Hand Strength - Propeller Mechanic (lbs) Handle Setting 2: 54#, 50#, 53# (52.3# ave) Left Hand Strength - Pinch (lbs) Lateral: 13.5# Tip: 8# Palmar 3 point: 11# Right Hand Strength - Propeller Mechanic (lbs) Handle Setting 2: 53#, 54#, 53# [...] Time Frame for Short term goals: STG=LTG shelter goals Time Frame for shelter goals : 12 visits (01/24/2022) terminal make up operator goal 1: pt to be indepenent in HEP terminal make up operator goal 2: Pt to demonstrate R wrist flexion to 65 degrees or more in order to engage in daily tasks terminal make up operator goal 3: Pt to demonstrate R wrist extension to 60 degrees or more in order to engage in daily tasks shelter goal 4: Pt to be educated on carpal tunnel do's & dont's in order to prevent further repetitive injury to wrist Patient's Goal: pt wishes to return to prior function Time In: 830 Time Out: 924 Timed Coded Minutes: 0 Total Treatment Time: 54 THERESA Houser, OTR/Matthew 12/23/2021 [facility] [employer] Phone: evalafctsy note* Diagnosis Viral illness Unspecified viral infection, in conditions classified elsewhere and of unspecified site [facility] Phone: evalglajff note* Diagnosis Suspected COVID-19 virus infection [facility] Phone: evalgwmvyh note* Diagnosis Acute cystitis with hematuria Acute cystitis [facility] Phone: evaluation note* Diagnosis Difficult or painful urination Dysuria [facility] Phone: evaltvvvdc note* Diagnosis Acute cystitis with hematuria Acute cystitis Recurrent UTI Urinary tract infection, site not specified documented [facility] Phone: evalfjwzwm note* Diagnosis Frequent UTI Urinary tract infection, site not specified Urinary urgency Urgency of urination Urinary frequency [facility] Phone: evalnzlcdz note* Diagnosis Frequent UTI Urinary tract infection, site not specified Urinary urgency Urgency of urination Urinary frequency [facility] this [facility] Phone: evalefghss note* Diagnosis MRSA (methicillin resistant Staphylococcus aureus) septicemia (HCC) Methicillin resistant staphylococcus aureus septicemia documented [facility] this encounter [facility]Former[facility] noteNo assessment information availableWooster Community [facility] Work Phone: Evaluation note* Diagnosis Fatigue, unspecified type Encounter for screening for HIV Mixed hyperlipidemia Hyperglycemia Other abnormal glucose Chronic renal impairment, stage 3b (HCC) documented [facility] Phone: evaljwkrdr note* Diagnosis Acute cystitis with hematuria Acute cystitis documented in this encounter [employer] Phone: evaluation note* Diagnosis Neck mass Swelling, mass, or lump in head and neck documented in this encounter [employer] Phone: evaluation note* Diagnosis Pain of foot, unspecified laterality Closed nondisplaced fracture of second metatarsal bone of left foot, initial encounter Closed nondisplaced fracture of lateral cuneiform of left foot, initial encounter documented in this encounter [employer] Phone: evaluation note* Diagnosis Foreign body (FB) in soft tissue Residual foreign body in soft tissue documented in this encounter [employer] Phone: evaluation note* Diagnosis Pelvic pressure in female Other specified symptom associated with female genital organs documented in this encounter [employer] Phone: evalihogmy note* Diagnosis Charcot arthropathy of midfoot- Primary Gastrocnemius equinus, unspecified laterality Foot pain, left Pain in soft tissues of limb [facility] Diagnosis Mixed hyperlipidemia documented in this encounter [employer] note* Diagnosis Idiopathic progressive polyneuropathy Non-seasonal allergic rhinitis due to pollen documented in this encounter [facility]* Diagnosis Thyroid nodule Nontoxic uninodular goiter documented in this encounter [employer] note* Diagnosis Thyroid nodule- Primary Nontoxic uninodular goiter [facility]* Diagnosis BUCK on CPAP- Primary 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 (CMS/HCC) Restless legs Restless legs syndrome (RLS) Bilateral carpal tunnel syndrome Carpal tunnel syndrome documented [facility]* Diagnosis Idiopathic progressive polyneuropathy- Primary Bilateral carpal tunnel syndrome Carpal tunnel syndrome Restless legs Restless legs syndrome (RLS) Intractable 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 (CMS/HCC) documented in this encounter [facility] HealthcareEvaluation note* Diagnosis BUCK (obstructive sleep apnea) Obstructive sleep apnea (adult) (pediatric) Hypersomnia Hypersomnia, unspecified Snoring Other dyspnea and respiratory abnormality Class 2 obesity due to excess calories with body mass index (BMI) of 38.0 to 38.9 in adult, unspecified whether serious comorbidity present documented in this encounter [facility] HealthcareEvaluation note* Diagnosis Idiopathic progressive polyneuropathy Non-seasonal allergic rhinitis due to pollen documented in this encounter [facility] HealthcareEvaluation note* Diagnosis Thyroid nodule- Primary Nontoxic uninodular goiter Lipoma of neck [facility]* Diagnosis 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 (CMS/HCC) documented in this encounter [facility] HealthcareEvaluation note* Diagnosis BUCK on CPAP- Primary Idiopathic progressive polyneuropathy Restless legs Restless legs syndrome (RLS) Intractable 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 (CMS/HCC) documented in this encounter [facility] HealthcareEvaluation note* Diagnosis Pre-diabetes Other abnormal glucose Mixed hyperlipidemia [facility] Diagnosis BUCK (obstructive sleep apnea)- Primary Obstructive sleep apnea (adult) (pediatric) BUCK on CPAP Claustrophobia (CMS/HCC) Other isolated or specific phobias documented in this encounter [facility] HealthcareEvaluation note* Diagnosis BUCK (obstructive sleep apnea)- [...] apnea (adult) (pediatric) documented in this encounter [facility] HealthcareEvaluation note* Diagnosis BUCK (obstructive sleep apnea)- Primary Obstructive sleep apnea (adult) (pediatric) BUCK on CPAP Claustrophobia Other isolated or specific phobias BUCK (obstructive sleep apnea)- Primary Obstructive sleep apnea (adult) (pediatric) Claustrophobia Other isolated or specific phobias Hypersomnia Hypersomnia, unspecified documented in this encounter [facility] HealthcareEvaluation note* Diagnosis BUCK (obstructive sleep apnea)- [...] Other abnormal glucose documented in this encounter [facility] Discharge instructions* Attachments The following attachments cannot be sent through Care Everywhere. * Diabetic Foot Ulcer (Bangladeshi) [facility]* Other (Routine) - ClosedSpecialtyDiagnoses / ProceduresReferred By Contact Referred To ContactRadiology Diagnoses Encounter for screening mammogram for malignant neoplasm of breast Procedures [facility] BRIAN DIGITAL SCREEN BILATERAL Back, [place] [address] Phone: tel: fax: Referral IDStatusReasonStart DateExpiration DateVisits RequestedVisits [id number]/27/20254/ [facility] Narrative* Imaging (Emergency) - Pending ReviewSpecialtyDiagnoses / ProceduresReferred By ContactReferred To ContactRadiology Diagnoses Pain in right foot Procedures MRI FOOT RIGHT W WO CONTRAST Robbin Sánchez, DPMónica [address], [place] [address] Phone: tel: fax: Referral IDStatusReasonStart DateExpiration DateVisits RequestedVisits [id number] Review [facility] Summary Purpose Family History No Family History [...] PMFull Code03/05/2017 10:05 AM03/05/2017 12:56 PMDate ActivatedDate EgqzypfsaboAytcasar97/11/2018 4:17 PM08/25/2018 8:55 PMDate ActivatedDate InactivatedComments03/19/2017 1:37 PM03/19/2017 4:32 PMDate ActivatedDate InactivatedComments03/19/2017 10:57 AM03/19/2017 1:37 PMDate ActivatedDate InactivatedComments03/05/2017 12:56 PM03/05/2017 3:55 PMDate Activated Date InactivatedComments03/05/2017 10:05 AM03/05/2017 12:56 PMDate ActivatedDate NvwdpamvisaWnxtehse82/11/2018 4:17 PM08/25/2018 8:55 PMDate ActivatedDate InactivatedComments03/19/2017 1:37 [...] Everywhere. * Back Care Basics: General Info (Bangladeshi) * Back: Preventing Injuries (Bangladeshi) documented in this encounter Reason for Referral StatusReasonSpecialtyDiagnoses / ProceduresReferred By ContactReferred To ContactClosedRadiology Diagnoses Brachial neuritis Peripheral nerve disorder Spasm of muscle Procedures MR Cervical Spine Without Contrast Trace Casas MD [address] [place] [address] SpecialtyDiagnoses / ProceduresReferred By ContactReferred To ContactRadiology Diagnoses Neck mass Procedures US HEAD NECK SOFT TISSUE THYROID Felipe Adam MD [address] [place] [address] Referral IDStatusReasonStart DateExpiration DateVisits RequestedVisits [id number]/23/20228/[id number] / Procedures Referred By ContactReferred To ContactRadiology Diagnoses Thyroid nodule Procedures US THYROID Back, MD [address] [place] [address] Referral IDStatusDino DateExpiration DateVisits RequestedVisits [id number] Chief Complaint and Reason for Visit Chief Complaint M54.16 M79.10 M79.60 9 R20.9 Chief Complaint Unknown Additional Source Comments INFORMATION SOURCE (unrecogn ized section and content) DATE CREATED AUTHOR 03/30/2018 [facility] DATE CREATED AUTHOR AUTHOR'S ORGANIZ ATION 03/30/2018 [facility] DATE CREATED AUTHOR AUTHOR'S ORGANIZ ATION 09/15/2018 [facility] DATE CREATED AUTHOR AUTHOR'S ORGANIZ ATION 09/23/2018 [facility] DATE CREATED AUTHOR AUTHOR'S ORGANIZ ATION 09/26/2018 [facility] DATE CREATED AUTHOR AUTHOR'S ORGANIZ ATION 12/10/2018 [facility] DATE CREATED AUTHOR AUTHOR'S ORGANIZ ATION 12/18/2018 [facility] DATE CREATED AUTHOR AUTHOR'S ORGANIZ ATION 02/11/2019 [facility] DATE CREATED AUTHOR AUTHOR'S ORGANIZ ATION 11/30/2021 [facility] DATE CREATED AUTHOR AUTHOR'S ORGANIZ ATION 05/01/2022 [facility] DATE CREATED AUTHOR AUTHOR'S ORGANIZ ATION 01/12/2023 [facility] DATE CREATED AUTHOR AUTHOR'S ORGANIZ ATION 02/15/2023 [facility] DATE CREATED AUTHOR AUTHOR'S ORGANIZ ATION 04/04/2023 [facility] DATE CREATED AUTHOR AUTHOR'S ORGANIZ ATION 02/20/2024 [facility] DATE CREATED AUTHOR AUTHOR'S ORGANIZ ATION 10/17/2024 [facility] DATE CREATED AUTHOR AUTHOR'S ORGANIZ ATION 02/14/2025 [facility] DATE CREATED AUTHOR AUTHOR'S ORGANIZ ATION 2025 [facility] DATE CREATED AUTHOR AUTHOR'S ORGANIZ ATION 08/04/2025 [facility] Reason for Visit (unrecogniz ed section and content) ReasonCommentsSleep ApneaSpecialtyDiagnoses / ProceduresReferred By Contact Referred To ContactNeurology Diagnoses BUCK on CPAP Procedures HI OFFICE/OUTPATIENT NEW HIGH MDM 60 MINUTES Fozia Meng, PERMASTONE MECHANIC [address], [facility] [address] [place] [address] Phone: tel: fax: Lynn Block MD [address] [facility] [address] [place] [address] Phone: tel: fax: Referral IDStatusReasonStart DateExpiration DateVisits RequestedVisits [id number] Specialty Services Required /[id number]yimtyn / ProceduresReferred By ContactReferred To ContactClosedRadiology Diagnoses Brachial neuritis Peripheral nerve disorder Spasm of muscle Procedures MR Cervical Spine Without Contrast Trace Casas MD [address] [place] [address] SpecialtyDiagnoses / ProceduresReferred By ContactReferred To Contact Occupational Therapy Diagnoses Carpal tunnel syndrome Carpal Tunnel Syndrome Procedures Eval and treat Keenan Lozano MD [address] [facility] [address] [place] [address] [facility] [address] [place] [address] Referral IDStatusReasonStben DateExpiration DateVisits RequestedVisits [id number]/17/20223/[id number] / Procedures Referred By ContactReferred To ContactPhysical Therapy Diagnoses Radiculopathy, lumbar region Lumbar Radiculopathy Procedures Eval and treat Janel Allen, ACCOUNTING POLICY CONSULTANT - RISK MODELER [address] [place] [address] [facility] [address] [place] [phone] Referral IDStatusReasonStart DateExpiration DateVisits RequestedVisits [id number] / Procedures Referred By ContactReferred To ContactRadiology Diagnoses Neck mass Procedures US HEAD NECK SOFT TISSUE THYROID Felipe Adam MD [address] [place] [address] Referral IDStatusReasonStart DateExpiration DateVisits RequestedVisits [id number]/23/20228/[id number] / Procedures Referred By ContactReferred To ContactRadiology Diagnoses Pain of foot, unspecified laterality Closed nondisplaced fracture of lateral cuneiform of left foot, initial encounter Procedures MRI FOOT LEFT W WO CONTRAST MRI FOOT LEFT W WO CONTRAST Robbin Sánchez, DPM [address], [place] [address] Referral IDStatus[facility], [facility] centerStart DateExpiration DateVisits RequestedVisits [id number]/16/20229/[id number] Class SpecialtyDiagnoses / ProceduresReferred By ContactReferred To ContactDiabetes Services Diagnoses Pre-diabetes Felipe Adam MD [address] [place] [phone] [facility] [address] [place] [phone] Referral IDStatusReasonStart DateExpiration DateVisits RequestedVisits [id number] Specialty Services Required /[id number] / ProceduresReferred By ContactReferred To ContactDiabetes Services Diagnoses Pre-diabetes Felipe Adam MD [address] [place] [phone] [facility] Diabetic Education [address] [place] [address] ReasonCommentsOtherLeft foot charcot on-going since 06/2022. New x-rays today. 2nd of opinion.SpecialtyDiagnoses / ProceduresReferred By ContactReferred To ContactRadiology Diagnoses Thyroid nodule Procedures US THYROID Felipe Adam MD [address] [place] [phone] Referral IDStatusReasonStart DateExpiration DateVisits RequestedVisits [id number] DateCommentsMed Maszvp1510/05/2024ReasonCommentsNew PatientFNA - THYROID NODULESpecialtyDiagnoses / ProceduresReferred By ContactReferred To ContactOtolaryngology Diagnoses Thyroid nodule Felipe Adam MD [address] [place] [address] Phone: tel: fax: Dimas Adair MD [address] [place] [address] Phone: tel: fax: Referral IDStatusReasonStart DateExpiration DateVisits RequestedVisits [id number] UlcerNiranjan presents to ER with a skin [...] DateEnd Date Felipe Adam MD [address] [place] [phone] PCP - GeneralInternal Medicine11/14/11Team MemberRelationshipSpecialtyStart Date End Date Back, MD Felipe [address] [place] [phone] PCP - GeneralInternal Medicine11/14/11Team MemberRelationshipSpecialtyStart Date End Date Back, MD [address] [place] [address] PCP - GeneralInternal Medicine11/14/11Team MemberRelationshipSpecialtyStart Date End Date Back, MD [address] [place] [address] PCP - GeneralInternal Medicine11/14/11Team MemberRelationshipSpecialtyStart Date End Date Back, MD [address] [place] [address] PCP - GeneralInternal Medicine11/14/11Team MemberRelationshipSpecialtyStart Date End Date Back, MD [address] [place] [address] PCP - GeneralInternal Medicine11/14/11Team MemberRelationshipSpecialtyStart Date End Date Back, MD [address] [place] [phone] PCP - GeneralInternal Medicine11/14/11 Team Status: Inactive Member Role Status Dates NON STAFF Primary Care Provider Active Trace Casas MDA[facility] ProviderActive Team Status: Active Member Role Status Dates NON STAFF Primary Care Provider Active Team MemberRelationshipSpecialtyStart DateEnd Date Back, MD [address] [place] [address] PCP - GeneralInternal Medicine11/14/11Team MemberRelationshipSpecialtyStart Date End Date Back, MD Fel[address] [place] [place] [phone] PCP - GeneralInternal Medicine11/14/11Team MemberRelationshipSpecialtyStart Date End Date Back, MD Felipe [address] [place] [id number] PCP - GeneralInternal Medicine11/14/11Team MemberRelationshipSpecialtyStart Date End Date Back, MD Felipe [address] [place] [id number] PCP - GeneralInternal Medicine11/14/11Team MemberRelationshipSpecialtyStart Date End Date Back, MD Felipe [address] [place] [address] PCP - GeneralInternal Medicine11/14/11Team MemberRelationshipSpecialtyStart Date End Date Back, MD Felipe [address] [place] [id number] PCP - GeneralInternal Medicine11/14/11Team MemberRelationshipSpecialtyStart Date End Date Back, MD Felipe [address] [place] [id number] PCP - GeneralInternal Medicine11/14/11Team MemberRelationshipSpecialtyStart Date End Date Back, MD Felipe [address] [place] [id number] PCP - GeneralInternal Medicine11/14/11Team MemberRelationshipSpecialtyStart Date End Date Back, MD Felipe [address] [place] [id number] PCP - GeneralInternal Medicine03/26/15Team MemberRelationshipSpecialtyStart Date End Date Back, MD Felipe [address] [place] [id number] PCP - GeneralInternal Medicine11/14/11 Team Status: Inactive Member Role Status Dates Frances Harris DPM MS Attending Provider Active Start: February 15, 2024 End: February 15, 2024Team MemberRelationshipSpecialtyStart DateEnd Date Back, MD [facility] PCP - GeneralInternal Medicine11/14/11Team MemberRelationshipSpecialtyStart Date End Date Back, MD Felipe [address] [place] [id number] PCP - GeneralInternal Medicine11/14/11Te MemberRelationshipSpecialtyStart Date End Date Back, MD Felipe [address] [place] [id number] PCP - GeneralInternal Medicine03/26/15Team MemberRelationshipSpecialtyStart Date End Date Back, MD Felipe [address] [place] [id number] PCP - GeneralInternal Medicine03/26/15Team MemberRelationshipSpecialtyStart Date End Date Back, MD Felipe 64 [facility], [facility]37 PCP - GeneralInternal Medicine11/14/11Team MemberRelationshipSpecialtyStart Date End Date Back, MD Alcides [address] [place] [id number] PCP - GeneralFamily Medicine12/08/24Team MemberRelationshipSpecialtyStart DateEnd Date Back, MD Alcides 64 [facility], [facility]37 PCP - GeneralFamily Medicine12/08/24Team MemberRelationshipSpecialtyStart DateEnd Date Back, MD Felipe 65 [facility], [place] [address] PCP - GeneralInternal Medicine2Team MemberRelationshipSpecialtyStart Date End Date Back, MD Alcides 64 [facility], [place] [address] PCP - GeneralFamily Medicine12/08/24Team MemberRelationshipSpecialtyStart DateEnd Date Back, MD Felipe 64 [facility], [place] [address] PCP - GeneralInternal Medicine11/14/11Team MemberRelationshipSpecialtyStart Date End Date Back, MD Alcides 64 [facility], [place] [address] PCP - GeneralFamily Medicine12/08/24Team MemberRelationshipSpecialtyStart DateEnd Date Back, MD Alcides 64 [facility], [place] [address] PCP - GeneralFamily Medicine12/08/24Team MemberRelationshipSpecialtyStart DateEnd Date Back, MD Alcides [address] [place] [address] PCP - GeneralFamily Medicine12/08/24Team MemberRelationshipSpecialtyStart DateEnd Date Back, MD Alcides [address] [place] [address] PCP - GeneralFamily Medicine12/08/24Team MemberRelationshipSpecialtyStart DateEnd Date Back, MD Felipe [address] [facility], [place] [address] PCP - GeneralInternal Medicine11/14/11Team MemberRelationshipSpecialtyStart Date End Date Back, MD Felipe 64 . [facility], [place] [address] PCP - GeneralInternal Medicine11/14/11Team MemberRelationshipSpecialtyStart Date End Date Back, MD Alcides [address] [facility], [place] [address] PCP - GeneralFamily Medicine12/08/24Team MemberRelationshipSpecialtyStart DateEnd Date Back, MD Felipe 64 . [facility], [place] [address] PCP - GeneralInternal Medicine11/14/11Team MemberRelationshipSpecialtyStart Date End Date Back, MD Alcides [address] [place] [address] PCP - GeneralFamily Medicine12/08/24Team MemberRelationshipSpecialtyStart DateEnd Date Back, MD Alcides [address] [place] [address] PCP - GeneralFamily Medicine12/08/24Team MemberRelationshipSpecialtyStart DateEnd Date Back, MD Felipe [address] [place] [address] PCP - GeneralInternal Medicine11/14/11Team MemberRelationshipSpecialtyStart Date End Date Alcides Adam MD [address] [place] [address] PCP - GeneralFamily Medicine12/08/24 Goals (unrecognized section [...] BE BASED ON THE PRIMARY CLINICAL RECORDS. [employer] [facility]. provides no warranty or guarantee of the accuracy or completeness of information in this document.
== END 2025-08-16 10:45 | disposition home or self-care (01) ==
LOC: WC 10:44
PROVIDERS: PCP Internal Medicine; Visit Provider Physician Assistant
DX: E11.621 Type 2 diabetes mellitus with foot ulcer (principal); L97.422 Non-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 with fat layer exposed; L97.515 Non-pressure chronic ulcer of other part of right foot with muscle involvement without evidence of necrosis
CPT/HCPCS: 29445

== ENCOUNTER 2025-08-23 14:14 | Outpatient (OUT) | payer OTHER, SELFPAY ==
--- OUTSIDE RECORDS SUMMARY | 2025-08-23 14:19 | XMS_ITS | Clinical Summary ---
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 Name Role Phone BackAlcides MD Primary Care Provider [phone] Allergies No known active allergies Medications MedicationSigDispense [...] 08/19/2017Active Active Problems ProblemNoted DateDiagnosed DateBasal cell tnlqffiej30/26/2017 Overview (09/29/2017): Added automatically from request for surgery [id number] Basal cell carcinoma of skin of face09/16/2017Neoplasm of uncertain behavior of skin Social History Tobacco UseTypesPacks/DayYears UsedDateSmoking Tobacco: NeverSmokeless Tobacco: NeverAlcohol UseStandard Drinks/WeekCommentsNo0 (1 standard drink = 0.6 oz pure alcohol)CommentsUnknownSex and Gender InformationValueDate RecordedSex Assigned at BirthNot on fileLegal DxdAwnwwu06/06/2017 7:26 PM ESTGender Identity Leipkr2906/25/2017 9:30 AM EDTSexual OrientationNot on file Last Filed Vital Signs Vital SignReadingTime TakenCommentsBlood Pbtdlaqt380/78011/24/2017 12:00 PM EST Pfdnr646711/24/2017 12:00 PM GOLLhejjiqnluo38.6 ??C (97.9 ??F)11/24/2017 12:00 PM ESTRespiratory Zspm668210/09/2017 11:44 AM ESTOxygen Tjofxecfgs37%10/09/2017 11:44 AM ESTInhaled Oxygen Concentration--Jhjatb361.5 kg (221 lb 8 oz)02/26/2022 2:01 PM KRFIuoyuf750.8 cm (5' 2.5 )02/26/2022 2:07 PM EDTBody Mass Index39.87 02/26/2022 2:01 PM EDT Plan of Treatment Health MaintenanceDue DateLast DoneCommentsHEPATITIS C VIRUS [id number] HIV SCREENING FYYHMCIHYA20/25/1994HEP B VACCINE (1 of 3 - 19+ 3-dose series) 1998CERVICAL CANCER SCREENING LBXDVCHGUA23/25/2000LIPID SCREENING 2019MAMMOGRAM SCREENING TOPAZFMACQ87/25/2019COLORECTAL CANCER SCREENING CHOMTFGDMM22/25/5740PWWXGXX59COVID-19 VACCINE ( - season)2025INFLUENZA VACCINE (#1)2025TDAP (ADULT)Guzrhrcnh35/05/2014 PNEUMOCOCCAL VACCINE SERIESAged OutNo longer eligible based on patient's age to complete this topic Insurance Care Teams Team MemberRelationshipSpecialtyStart DateEnd Date Back, MD Alcides [address] [place] [address] PCP - GeneralInternal Tvqobgvs04/27/17
--- OUTSIDE RECORDS SUMMARY | 2025-08-23 14:20 | XMS_ITS | CCD ---
Author Organization [facility] Care Team Providers Care Labeler Name Role Phone Back, Felipe Unavailable Unavailable [...] Care Provider Back, Felipe Primary Care Provider [phone] Back, Felipe Primary Care Provider Unavailabl e Back , Felipe Primary Care Provider Back , Felipe Primary Care Provider Back , Felipe Primary Care Provider [phone] BACK, FELIPE Primary Care Unavailable MUTNAL, AMAR Admitting Unavailable MUTNAL, AMAR Attending Unavailable Back , Felipe Primary Care Provider NON STAFF Primary Care Provider UnavailMD Trace Mixon. Attending Provider Back , Felipe Primary Care Provider [phone] YOON COBB Referring Unavailable BACK, FELIPE Primary Care Unavailable Back , Felipe Primary Care Provider KALPESH ARENAS Attending Unavail able BACK, FELIPE Primary Care Unavailable Back , Felipe Primary Care Provider FRANCES HARRIS Admitting Unavailable FRANCES HARRIS Attending Unavailable FRANCES HARRIS Consulting Unavailable FRANCES HARRIS Admitting Unavailable FRANCES HARRIS Attending Unavailable [facility], DR PIPER Ackerman Consulting Unavailable HIGHLFRANCES HERNANDEZ Consulting Unavailable FRANCES HARRIS Admitting Unavailable FRANCES HARRIS Attending Unavailable BELKNAP, DR EMILY Riojas Consulting Unavailable FRANCES HARRIS [...] of OnsetReaction(s) Facility (20 sources)Chlorhexidine; Translations: [CHLORHEXIDINE]Drug [id number] [facility] (13 sources)topiramate; Translations: [TOPIRAMATE]Drug Dnixqvt19-41-5567Ymgyj (See Comments)[facility] (20 sources)TopiramatePropensity to adverse dbdgkmika14-93-4975[facility] (1 source)Chlorhexidine; Translations: [Chlorhexidine Gluconate]Drug Allergy [facility] Medications Current Medications MedicationDrug Class(es)DatesSig (Normalized)Sig (Original)acetaminophen 325 mg / HYDROcodone bitartrate 5 mg oral tablet (10 sources)Opioid AgonistStart: 09-87-4840PXYNRiqyriq-acetaminophen (NORCO) 5- 325 MG per tablettake 1 tablet by mouth every eight hours as neededhydroCODone- acetaminophen 5-325 MG Tab tablet take 1 tablet by mouth every 8 hours as needed. ActiveALPRAZolam 0.25 mg oral tablet (20 sources)BenzodiazepineStart: 49-76-5370pkzw 1 tablet by mouth once daily ALPRAZolam (XANAX) 0.25 MG tablet Take 1 tablet by mouth nightly. 03/14/2025 Activeamoxicillin 875 mg / clavulanate 125 mg oral tablet (1 source)Penicillin-class AntibacterialStart: 08-08-2020 End: 95-97-9400emyh 1 tablet by mouth twice dailyamoxicillin-clavulanate (AUGMENTIN) 875-125 MG per tablet Indications: Bacterial sinusitis Take 1 tablet by mouth 2 times daily for 7 days 14 tablet 0 08/08/2020 08/15/2020 Zzrglz20 hr amphetamine aspartate 5 mg / amphetamine sulfate 5 mg / dextroamphetamine saccharate 5 mg / dextroamphetamine sulfate 5 mg extended release oral capsule (4 sources)Central Nervous System StimulantStart: 02-25-2023 End: 39-47-6775mqjpjdxexjmagdkpv-amphetamine (ADDERALL XR) 20 MG 24 hr capsule 02/25/2023 10/11/2024 Discontinued (Patient Discharge)Start: 52-06-4862qymx 1 capsule by mouth once daily in [...] tablet (20 sources)gamma-Aminobutyric Acid-ergic AgonistStart: 12-16-2024 End: 98-05-5562myts 2 tablets by mouth at bedtimebaclofen (Lioresal) 10 MG tablet Indications: Cervical paraspinal muscle spasm TAKE 2 TABLETS BY MOUTH AT BEDTIME FOR 30 DAYS 60 tablet 3 05/24/2025 ActiveStart: 22-10-2152rgnf 2 tablets by mouth at bedtimebaclofen (Lioresal) 10 MG tablet Indications: Cervical paraspinal muscle spasm TAKE 2 TABLETS BY MOUTH AT BEDTIME FOR 30 DAYS 60 tablet 3 07/12/2024 ActiveStart: 30-02-7229amtb 1 tablet by mouth once dailybaclofen (LIORESAL) 10 MG tablet Take 1 tablet by mouth nightly 04/19/2022 Activebiotin 1 mg oral tablet (20 sources)Start: 99-56-4920tawv 1 tablet by mouth once dailyBiotin 1000 [...] oral capsule (18 sources)Cephalosporin AntibacterialStart: 08-13-2023 End: 17-70-1037ajqj 1 capsule by mouth once daily as needed for urinary tract infectioncephALEXin (KEFLEX) 250 MG capsule Indications: Frequent UTI Take 1 capsule by mouth daily as needed (post-coital UTI prophylaxis) 30 capsule 1 08/13/2023 ActiveStart: 16-20-9446snjn 1 capsule by mouth once daily as needed for urinary tract infectioncephALEXin (KEFLEX) 250 MG capsule Indications: Frequent UTI Take 1 capsule by mouth daily as needed (post-coital UTI prophylaxis) 30 capsule 1 08/07/2022 Activecholecalciferol 0.05 mg oral capsule (20 sources)Vitamin DStart: 68-06-1796glxt 1 capsule by mouth once daily Cholecalciferol (VITAMIN D) 2000 UNITS CAPS capsule Indications: Vitamin D deficiency Take 1 capsule by mouth daily. 30 capsule 12 09/11/2014 Active cholecalciferol (Vitamin D-3) 50 MCG (2000 UT) tablet Take by mouth Active cholecalciferol, vitamin D3, (VITAMIN D3) 2,000 unit Tab Take by mouth. Active clindamycin 300 mg oral capsule (16 sources)Lincosamide AntibacterialStart: 04-04-2025 End: 74-06-1273mhilknlrowm (CLEOCIN) 300 MG capsule 04/13/2025 ActiveStart: 61-48-6027auofsrwcyvf (CLEOCIN) 150 MG capsulecyclobenzaprine hydrochloride 5 mg oral tablet (16 sources)Muscle Relaxanttake 0.5 tablet by mouth once dailycyclobenzaprine (FLEXERIL) 5 MG tablet Take 5 mg by mouth nightly 1/2 tablet every night 0 Activedapagliflozin 10 mg oral tablet (7 sources)Sodium-Glucose Cotransporter 2 InhibitorStart: 02-97-8333kcnf 1 tablet by mouth once daily in the morningdapagliflozin (FARXIGA) 10 MG tablet Indications: Stage 3a chronic kidney disease (HCC) , Pre-diabetes Take 1 tablet by mouth every morning 90 tablet 1 06/19/2025 Wgcsvd53 hr desvenlafaxine succinate 25 mg extended release oral tablet (1 source)Serotonin and Norepinephrine Reuptake InhibitorStart: 07-29-2021 desvenlafaxine succinate (PRISTIQ) 25 MG TB24 extended release tablet 25 mg daily 0 07/29/2021 Activedextromethorphan hydrobromide 15 mg / guaiFENesin 400 mg / pseudoephedrine hydrochloride 60 mg oraltablet (1 source)alpha-Adrenergic Agonist, Uncompetitive H-cliedw-Q-aspartate Receptor Antagonist, Sigma-1 AgonistStart: 02-13-2021 End: 89-50-5873exel 1 tablet by mouth every six hours as needed Xlybmxigqvtkqtq-VH-QS (CAPMIST DM) 60-15-400 MG TABS Take 1 tablet by mouth every 6 hours as needed(Sinus pressure) 28 tablet 0 02/13/2021 02/20/2021 Active doxycycline hyclate 100 mg oral capsule (15 sources)Tetracycline-class DrugStart: 09-20-2018 End: 05-24-1044zusd 1 capsule by mouth twice dailydoxycycline hyclate [...] mg/mg ophthalmic ointment (2 sources)Macrolide, Macrolide AntimicrobialStart: 16-72-4104fpasjsifszwv 5 MG/GM Ointment ophthalmic ointment Apply to eye incisions 2 x a day 1 Tube 0 08/19/2017 Activefamotidine 20 mg oral tablet (20 sources)Histamine-2 Receptor AntagonistStart: 75-42-2240vqjfvjhpxp (PEPCID) 20 MG tablet Indications: Gastroesophageal reflux disease without esophagitis TA KE 1 TABLET TWICE A DAY 180 tablet 3 04/03/2025 ActiveStart: 78-36-5072mnse 1 tablet by mouth twice dailyfamotidine (PEPCID) 20 MG tablet Indications: Gastroesophageal reflux disease without esophagitis Take 1 tablet by mouth 2 times daily 60 tablet 5 05/26/2023 ActiveStart: 04-01-1594zpzf 1 tablet by mouth twice dailyfamotidine (PEPCID) 20 MG tablet Indications: Gastroesophageal reflux disease without esophagitis Take 1 tablet by mouth 2 times daily 60 tablet 3 2022 Activefluconazole 150 mg oral tablet (1 source)Azole AntifungalStart: 97-59-2727nksqueajhko (DIFLUCAN) 150 MG tablet Indications: Antibiotic-induced yeast infection Take 1 tablet by mouth at first sign of yeast infection and repeat in 72 hours for severe infection. 2 tablet 0 06/06/2021 Activefluticasone propionate 0.05 mg/actuat metered dose nasal spray (20 sources)CorticosteroidStart: 34-54-9765oxyi 2 spray(s) nasal route once dailyfluticasone (FLONASE) 50 MCG/ACT nasal spray Indications: Seasonal allergies USE 2 SPRAYS IN EACH NOSTRIL DAILY 48 g 3 09/22/2022 ActiveStart: 80-29-5607swgc 2 spray(s) nasal route once dailyfluticasone (Flonase) 50 MCG/ACT nasal spray Administer 2 sprays into each nostril Daily 09/22/2022ctiveStart: 30-70-5642vcio 2 spray(s) nasal route in the morningfluticasone (Flonase) 50 MCG/ACT nasal spray Administer 2 sprays into each nostril in the morning. 1 11/23/2021 ActiveStart: 98-86-1910cpua 2 spray(s) nasal route once daily fluticasone [...] 600 mg oral tablet (2 sources)Anti-epileptic AgentStart: 67-22-2798uxuc 1 tablet by mouth twice dailygabapentin 600 [...] mg oral capsule (11 sources)Guanylate Cyclase-C AgonistStart: 76-59-3802yudw 1 capsule by mouth once dailylinaclotide (LINZESS) 145 MCG capsule Indications: Drug-induced constipation Take 1 capsule by mouth daily 90 capsule 1 05/09/2024 Active lisdexamfetamine dimesylate 40 mg oral capsule (20 sources)Central Nervous System StimulantStart: 80-57-3623VALWJVP 40 MG CAPS Take 50 mg by mouth daily. 03/04/2023 ActiveStart: 93-46-8566IVKFLNC 40 MG CAPS Start: 13-43-9320ZSLPKAX 40 MG CAPS daily. 0 05/06/2021 ActiveStart: 01-10-2021 VYVANSE 20 MG CAPS End: 09-63-7471sqbt 1 capsule by mouth in the morninglisdexamfetamine (Vyvanse) 50 MG capsule Take 50 mg by mouth in the morning. 09/14/2024 Discontinued (Ineffective)loperamide hydrochloride 2 mg oral capsule (1 source)Opioid AgonistStart: 01-21-2021 End: 68-65-5017onbk 1 capsule by mouth four times daily as needed for diarrhea loperamide (RA ANTI-DIARRHEAL) 2 MG capsule Indications: Diarrhea in adult patient Take 1 capsule by mouth 4 times daily as needed for Diarrhea 20 capsule 0 01/21/2021 01/26/2021 Activemelatonin 3 mg oral tablet (17 sources) End: 29-98-6132sxzgpjrfq 3 mg Tab Take by mouth nightly. 10/11/2024 Discontinued (Patient Discharge)methocarbamol 500 mg oral tablet (2 sources)Muscle RelaxantStart: 28-81-0273feywiispefuwt (ROBAXIN) 500 MG tablet montelukast 10 mg oral tablet (20 sources)Leukotriene Receptor AntagonistStart: 09-22-2022 End: 29-80-1981mtsiuaxvssn (SINGULAIR) 10 MG tablet Indications: Seasonal allergies TAKE 1 TABLET NIGHTLY 90 tablet 3 09/22/2022 ActiveStart: 04-11-2022 take 1 tablet by mouth once dailymontelukast (SINGULAIR) 10 MG tablet Indications: Seasonal allergies Take 1 tablet by mouth jbnoqix80 tablet 1 04/11/2022 ActiveStart: 59-04-7582pahhtgyevvv (SINGULAIR) 10 MG tablet nitrofurantoin, macrocrystals 25 mg / nitrofurantoin, monohydrate 75 mg oral capsule (1 source)Nitrofuran AntibacterialStart: 06-11-2021 End: 35-23-7531xiwz 1 capsule by mouth twice dailynitrofurantoin, macrocrystal- monohydrate, (MACROBID) 100 MG capsule Indications: Acute cystitis with hematuria Take 1 capsule by mouth 2 times daily for 5 days 10 capsule 0 06/11/2021 06/16/2021 Activenortriptyline 50 mg oral capsule (20 sources)Tricyclic AntidepressantStart: 02-13-2025 End: 79-01-0402kqpw 3 capsules by mouth once dailynortriptyline (PAMELOR) 50 MG capsule Take 3 capsules by mouth nightly 02/13/2025 02/13/2026 ActiveStart: 09-14-2024 End: 70-98-2974qzja 2 capsules by mouth at bedtimenortriptyline (Pamelor) 50 MG capsule Indications: Idiopathic progressive polyneuropathy , Intractable 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 (CMS/HCC) Take 2 capsules (100 mg) by mouth at bedtime 180 capsule 3 11/02/2024 02/13/2025 Discontinued (Reorder)Start: 06-10-2024 End: 65-39-4971bufu 2 capsules by mouth at bedtimenortriptyline (Pamelor) 25 MG capsule Indications: Idiopathic progressive polyneuropathy , Bilateral carpal tunnel syndrome , Restless legs , Intractable chronic migraine without aura and with statusmigrainosus (CMS/HCC) Take two capsules by mouth at bedtime. Total of 50 mg. 90 capsule 3 06/10/2024 09/14/2024 Discontinued (Reorder)Start: 11-12-2023 End: 17-34-1886wgce 1 capsule by mouth at bedtimenortriptyline (Pamelor) 25 MG capsule Indications: Idiopathic progressive polyneuropathy , Bilateral carpal tunnel syndrome , Restless legs , Intractable chronic migraine without aura and with statusmigrainosus (CMS/HCC) Take 1 capsule (25 mg) by mouth at bedtime 90 capsule 3 11/12/2023 06/10/2024iscontinued (Reorder)PARoxetine hydrochloride 20 mg oral tablet (5 sources)Serotonin Reuptake InhibitorStart: 45-10-5559grdk 1 tablet by mouth once dailyparoxetine 20 MG Tab take 20 mg by mouth daily. 06/09/2017 Active phentermine hydrochloride 37.5 mg oral tablet (3 sources)Sympathomimetic Amine AnorecticStart: 05-26-2023 End: 11-78-4338clpz 1 tablet by mouth once daily before [...] tablet 0 05/26/2023 06/25/2023 ActiveStart: 05-27-2019 End: 61-74-5128gcxe 40-44.9 capsules by mouth once daily in [...] mg oral tablet (1 source)Start: 09-16-2020 End: 24-88-2759gwbx 3 tablets by mouth once dailypredniSONE (DELTASONE) 20 MG tablet Take 3 tablets by mouth daily for 5 days 15 tablet 0 Activepregabalin 300 mg oral capsule (20 sources)Start: 46-58-7036whta 1 capsule by mouth in the morningpregabalin (Lyrica) 300 MG capsule Indications: Idiopathic progressive polyneuropathy , Non-seasonal allergic rhinitis due to pollen TAKE 1 CAPSULE BY MOUTH IN THE MORNING AND 1 CAPSULE BY MOUTH BEFORE BEDTIME 180 capsule 07/31/2025 Active Start: 02-20-2022 End: 02-11-1709oawi 1 capsule by mouth twice dailypregabalin (LYRICA) 300 MG capsule Take 1 capsule by mouth 2 times daily. 02/20/2022 ActiveStart: 60-30-7265zwxh 1 capsule by mouth three times dailypregabalin (LYRICA) 150 MG capsule Indications: Epidural abscess , Discitis of thoracic region , Infection of thoracic spine (HCC) , Peripheral polyneuropathy Take 1 capsule by mouth 3 times daily for 30 days.. 90 capsule 0 08/25/2018 ActiveraNITIdine 150 mg oral tablet (1 source)Histamine-2 Receptor AntagonistStart: 41-71-5783tspz 1 tablet by mouth twice dailyraNITIdine (ZANTAC) 150 MG tablet Indications: Epigastric abdominal pain Take 1 tablet by mouth 2 times daily 60 tablet 3 12/09/2019 Active rimegepant 75 mg disintegrating oral tablet (20 sources)Start: 04-90-2375Okxedsnjqj Sulfate (Nurtec) 75 MG tablet dispersible Indications: Intractable 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 Take 75 mg by mouth See administration instructions Take 1- 75mg tablet by mouth as needed at the onset of migraine. 16 tablet 11 10/31/2024 ActiveStart: 27-82-3587Fryujvltrt Sulfate (Nurtec) 75 MG tablet dispersible Indications: Intractable 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 (CMS/HCC) Take 75 mg by mouth See administration instructions Take 1- 75mg tablet by mouth as needed at the onset of migraine. 16 tablet 11 09/07/2024 ActiveStart: 98-54-5944Asjkweaeco Sulfate (Nurtec) 75 MG tablet dispersible Indications: Intractable 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 (CMS/HCC) Take 75 mg by mouth See administration instructions. Take 1- 75mg tablet by mouth as needed at the onset of migraine. 16 tablet 11 08/20/2023 ActiveStart: 47-40-0072HKIIDC [address] 1 TABLET ON OR UNDER THE TONGUE EVERY OTHER DAY 01/02/2022 ActiverOPINIRole 1 mg oral tablet (20 sources)Nonergot Dopamine AgonistStart: 10-31-2024 End: 21-68-3800ohzk 1 tablet by mouth in the morning, then take 1 tablet by mouth in the evening, then take 1 tablet by mouth at bedtimerOPINIRole (Requip) 0.5 MG tablet Indications: Restless legs Take 1 tablet (0.5 mg) by mouth in the morning and 1 tablet (0.5 mg) in the evening and 1 tablet (0.5 mg) before bedtime. 270 tablet 3 10/31/2024 02/13/2025 Discontinued (Reorder)Start: 04-14-5494nJQVYAQbun (Requip) 0.5 MG tablet Indications: Restless legs TAKE 1 TABLET THREE TIMES A DAY 270 tablet 3 08/24/2023 ActiveStart: 02-10-2023 rOPINIRole (REQUIP) 0.5 MG tabletStart: 04-02-2021 End: 09-22-1688qtpi 1 tablet by mouth three times dailyrOPINIRole (REQUIP) 1 MG tablet Indications: Restless legs Take 1 tablet by mouth 3 times daily 270tablet 1 10/10/2024 ActiveStart: 10-47-1041rRFAWJKqmd (REQUIP) 0.5 MG tablettake 1 tablet by mouth twice dailyrOPINIRole (REQUIP) 0.5 MG tablet Take 0.5 mg by mouth 2 times daily 0 Activesertraline 100 mg oral tablet (20 sources)Serotonin Reuptake InhibitorStart: 62-99-8730ukrwgieput (Zoloft) 100 MG tablet 02/25/2023 ActiveStart: 18-67-3628tfcc 2 tablets by mouth once daily sertraline (ZOLOFT) 100 MG tablet Take 2 tablets by mouth daily Currently decreasing this medication 07/30/2020 ActiveStart: 25-82-0597mmfj 1 tablet by mouth once dailysertraline (ZOLOFT) 100 MG tablet Take 100 mg by mouth daily Currently decreasing this medication ActiveStart: 18-94-6043hprs 2 tablets by mouth once dailysertraline (ZOLOFT) 50 MG tablet Take 100 mg by mouth daily 2 QD 0 07/06/2019 ActiveStart: 88-63-3199nfxgsbpulq (ZOLOFT) 50 MG tablet sucralfate 1000 mg oral tablet (1 source)Aluminum ComplexStart: 56-10-4689bgvv 1 tablet by mouth four times daily before mealtimesucralfate (CARAFATE) 1 GM tablet Indications: Epigastric abdominal pain Take 1 tablet by mouth 4 times daily (before meals and nightly) 120 tablet 0 12/09/2019 Activesulfamethoxazole 800 mg / trimethoprim 160 mg oral tablet (8 sources)Dihydrofolate Reductase Inhibitor Antibacterial, Sulfonamide AntimicrobialStart: 04-28-2022 End: 78-13-9758qtuw 1 tablet by mouth once in the morning, then take 1 tablet by mouth once at bedtimesulfamethoxazole-trimethoprim (BACTRIM DS) 800-160 MG per tablet Indications: Acute cystitis with hematuria Take 1 tablet by mouth in the morning and 1 tablet before bedtime. Do all this for 7 days. 14 tablet 0 04/28/2022 05/05/2022 ActiveStart: 01-22-2022 End: 42-62-9075wkmy 1 tablet by mouth twice dailysulfamethoxazole-trimethoprim (BACTRIM DS;SEPTRA DS) 800-160 MG per tablet Take 1 tablet by mouth 2times daily for 7 days 14 tablet 0 01/22/2022 01/29/2022 ActiveStart: 08-01-2021 End: 97-96-0736nrwa 1 tablet by mouth once dailysulfamethoxazole-trimethoprim (BACTRIM) 400-80 MG per tablet Indications: Frequent UTI , Urinary urgency , Urinary frequency Take 1 tablet by mouth daily Take one tablet after intercourse 30 tablet 10/30/2021 Activesulfamethoxazole-trimethoprim (Bactrim) 400-80 MG tablet Take by mouth Activethiamine 100 mg oral tablet (6 sources)Start: 08-20-2023 End: 96-57-4982qhfi 1 tablet by mouth in the morningthiamine (Vitamin B-1) 100 MG tablet Indications: Bilateral carpal tunnel syndrome , Idiopathic progressive polyneuropathy , Restless legs Take 1 tablet (100 mg) by mouth in the morning. 30 tablet 08/19/2024 ActivetiZANidine 4 mg oral tablet (14 sources)Central alpha-2 Adrenergic AgonistStart: 87-81-1866fyASGmgysv (ZANAFLEX) 4 MG tablet Take by mouth nightly 0 05/05/2020 Activetopiramate 50 mg oral tablet (15 sources)Start: 09-22-2023 End: 79-12-3529fymrkybeco 50 MG tablet 09/22/2023 09/14/2024 Discontinued (Side effects)Start: 55-84-3891bxovzacqzh (TOPAMAX) 25 MG tabletvilazodone hydrochloride 40 mg oral tablet (8 sources)Start: 20-57-5542yqnm 1 tablet by mouth once dailyvilazodone HCl (VIIBRYD) 40 MG TABS Indications: Depression with anxiety Take 1 tablet by mouth daily 30 tablet 3 05/27/2019 Active Completed/Discontinued Medications MedicationDrug Class(es)DatesSig (Normalized)Sig (Original)alendronic acid 70 mg oral tablet (2 sources)BisphosphonateStart: 07-01-2024 End: 00-74-9733hcvb 1 tablet by mouth once dailyalendronate (Fosamax) 70 MG tablet 1 tablet 30 minutes before the first food, beverage or medicine of the day with plain water Orally weekly for 94 days 07/01/2024 05/24/2025 Discontinued (Therapy completed)cetirizine hydrochloride 10 mg oral capsule (20 sources)Histamine-1 Receptor AntagonistStart: 06-09-2017 End: 41-59-9263vhgttqudkl 10 mg capStart: 89-11-3848Egdilxayjw HCl (ALL DAY ALLERGY) 10 MG CapStart: 77-74-6945kfzd 1 tablet by mouth once dailycetirizine (ZYRTEC) 10 MG tablet TAKE 1 TABLET BY MOUTH DAILY. 30 tablet 4 02/11/2016 Spkqrt634 ml ciprofloxacin 2 mg/ml injection (4 sources)Quinolone AntimicrobialStart: 04-04-2025 End: 72-89-7428475 mg, IntraVENous, ONCE, 1 dose, On Thu04/04/25 at 2200, Antimicrobial Indications: Skin and Soft Tissue InfectionStart: 04-04-2025 End: 83-73-6839bynm 1 tablet by mouth twice dailyciprofloxacin (CIPRO) 500 MG tablet Take 1 tablet by mouth 2 times daily for 10 days 20 tablet 04/04/2025 04/14/2025 ActiveStart: 04-13-2021 End: 28-87-0266ywwy 1 tablet by mouth twice dailyciprofloxacin (CIPRO) 250 MG tablet Indications: Acute cystitis with hematuria Take 1 tablet by mouth 2 times daily for 3 days 6 tablet 0 04/13/2021 04/16/2021 Activeclindamycin (CLEOCIN) 600 mg in sodium chloride 0.9 % 50 mL IVPB (1 source)Start: 04-04-2025 End: 42-35-4553601 mg, IntraVENous, ONCE, 1 dose, On Thu04/04/25 at 2200, Antimicrobial Indications: Skin and Soft Tissue Infectiondiclofenac sodium 0.01 mg/mg topical gel (20 sources)Nonsteroidal Anti-inflammatory DrugStart: 01-06-2023 End: 71-34-3740whdwyuybqb sodium 1 % gel 01/06/2023 05/24/2025 Discontinued (Therapy completed)Start: 19-26-6898bpkkqpedjx sodium 1 % GELgadobenate dimeglumine (MULTIHANCE) injection 10 mL (2 sources)Start: 04-11-2025 End: 88-91-8184gqnr 1 dose intravenously once10 mL, IntraVENous, IMG ONCE PRN, 1 dose, Starting on Thu04/11/25 at 1244, Until Thu04/11/25 at 1245,OtherStart: 06-25-2022 End: 83-07-2130doqvxfixqc dimeglumine (MULTIHANCE) injection 10 mLhydrOXYzine pamoate 50 mg oral capsule (20 sources)AntihistamineStart: 03-06-2023 End: 96-21-6229spgxODCclnp pamoate (Vistaril) 50 MG capsule Indications: Allergy, subsequent encounter Take 1 capsule (50 mg) by mouth as needed at bedtime for itching. 90 capsule 1 03/06/2023 03/14/2025 Discontinuedicosapent ethyl 1000 mg oral capsule (15 sources)Start: 05-17-2019 End: 56-11-8522xvsb 2 capsules by mouth twice daily, then take 1 capsule by mouthIcosapent Ethyl (VASCEPA) 1 g CAPS capsule Indications: Mixed hyperlipidemia Take 2 capsules by mouth 2 times daily 120 capsule 5 05/17/2019 09/16/2020 Discontinued (LIST CLEANUP)methylPREDNISolone 125 mg injection (1 source)CorticosteroidStart: 09-16-2020 End: 38-55-4555mptwyqNISNEIXaylen sodium (SOLU-MEDROL) injection 125 mgStart: 09-16-2020 End: 14-45-1835llmxxlHZXVUMZxpmrw sodium (SOLU-MEDROL) injection 125 mg2 ml orphenadrine citrate 30 mg/ml injection (1 source)Muscle RelaxantStart: 09-16-2020 End: 96-91-9619cbdlmaahxvze (NORFLEX) injection 30 mg50 ml sodium chloride 9 mg/ml injection (1 source)Start: 04-04-2025 End: 51,000 mL (10.3 mL/kg), IntraVENous, at 1,935.5 mL/hr, Administer over 31 Minutes, ONCE, On Thu04/04/25 at 2200, For 1 dose Problems Active Problems Problem ClassificationProblemDateDocumented DateEpisodic/ChronicAnxiety disorders (20 sources)Anxiety; Translations: [Mixed anxiety and depressive disorder]Onset: 387526-09-7875MuuunmsZtrfxbc kidney disease (20 sources)Chronic kidney disease stage 3; Translations: [Chronic renal insufficiency]Onset: 864346-74-6333OnytqnnBbuxdaz kidney disease (16 sources)Chronic renal insufficiency; Translations: [Chronic kidney disease] Onset: 645457-77-2675Hyvlmwq ulcer of skin (9 sources)Deep tissue pressure injury; Translations: [Pressure-induced deep tissue damage of other site]Onset: 246865-64-5194QktmdgiLhrrncod mellitus with complications (20 sources)Polyneuropathy due to type 2 diabetes mellitus; Translations: [Type 2 diabetes mellitus with diabetic polyneuropathy]Onset: ChronicDisorders of lipid metabolism (20 sources)Mixed hypercholesterolemia and hypertriglyceridemia; Translations: [Mixed hyperlipidemia]Onset: 06-24-2013 Resolved: 600754-56-7136StertvxEsaclebidn disorders (20 sources)Gastroesophageal reflux disease; Translations: [Gastro-esophageal reflux disease without esophagitis]Onset: 650357-32-2639XzdihzlXdmwqgur of lower limb (2 sources)Closed fracture of second metatarsal bone; Translations: [Nondisplaced fracture of second metatarsal bone, right foot, initial encounter for closed fracture]60-52-4923GfnjzfefPnyqdxmauasyj symptoms and ill-defined conditions (5 sources)Dysuria; Translations: [Dysuria]EpisodicHeadache; including migraine (20 sources)Migraine without aura, not refractory ; Translations: [Chronic migraine without aura, not intractable, without status migrainosus]Onset: [id number]zwmu and screening for infectious disease (4 sources)Suspected disease caused by 2019-nCoV; Translations: [Suspected COVID-19 virus infection]EpisodicInfective arthritis and osteomyelitis (except that caused by tuberculosis or sexually transmitted disease) (20 sources)Osteomyelitis, unspecified; Translations: [Infection of thoracic spine]Onset: 859179-88-1464IrpkrlaSjgsvpg and fatigue (20 sources)Fatigue; Translations: [Chronic fatigue, unspecified]Onset: 148860-12-2030LaulchoWztlcinvo; nephrosis; renal sclerosis (20 sources)Chronic glomerulonephritis; Translations: [Chronic nephritic syndrome with unspecified morphologic changes]Onset: 248695-27-8354Sgckcbs Nutritional deficiencies (20 sources)Vitamin D deficiency; Translations: [Vitamin D deficiency, unspecified]Onset: 777206-34-9734UbsxjxmLlqexlwrlgakle (20 sources)Degenerative joint disease of ankle AND/OR foot; Translations: [Primary osteoarthritis, unspecifiedankle and foot]Onset: 141251-59-1115 ChronicOther acquired deformities (20 sources)Contracture of joint of left ankle; Translations: [Contracture, left ankle]Onset: 682373-53-8050LmropzkHqhzo acquired deformities (1 source)Deformity of lower limb; Translations: [Other specified acquired deformities of unspecified lower leg]14-89-4409EstfcgoaXrkve and unspecified benign neoplasm (1 source)Lipoma of skin and subcutaneous tissue of neck; Translations: [Benign lipomatous neoplasm of skin and subcutaneous tissue of head, face and neck] 14-57-7534OznqfkacJghpn and unspecified benign neoplasm (2 sources)Benign lipomatous neoplasm of skin and subcutaneous tissue of head, face and neck; Translations: [Benign lipomatous neoplasm of skin and subcutaneous tissue of head, face and neck]Onset: 57-97-9527CuoueyxrMvemy circulatory disease (4 sources)Other specified symptoms and signs involving the circulatory and respiratory systems; Translations:[OTH SPEC SX SIGNS INVLV CIRC RS]Onset: 35-84-0668QurzjtekQcrva connective tissue disease (2 sources)Other muscle spasm; Translations: [Other muscle spasm]Onset: 82-68-3307RntmoibrPemqt connective tissue disease (1 source)Foot pain; Translations: [...] Translations: [Disorder of kidney and ureter, unspecified]Onset: 87-95-9618ChkltlggBinuf hereditary and degenerative nervous system conditions (20 sources)Restless legs; Translations: [Restless legs syndrome]Onset: 381675-15-6828SwzzwpvHxocd lower respiratory disease (1 source)Dyspnea; Translations: [SOB (shortness of breath)]EpisodicOther lower respiratory disease (2 sources)Snoring; Translations: [Snoring]37-37-4623JghhjzweHhwsw nervous system disorders (3 sources)Polyneuropathy, unspecified; Translations: [Polyneuropathy, unspecified]Onset: 20-52-2400IcxoztiPixkh nervous system disorders (20 sources)Peripheral nerve disease ; Translations: [Polyneuropathy, unspecified]Onset: 219865-93-1885GjqroccZrysl nervous system disorders (20 sources)Carpal tunnel syndrome of right wrist; Translations: [Carpal tunnel syndrome, right upper limb]Onset: 672363-99-2802VtippqmIrzse nervous system disorders (20 sources)Idiopathic progressive polyneuropathy; Translations: [Idiopathic progressive neuropathy]Onset: 395950-51-1942YxixhtiNyjgx nervous system disorders (20 sources)Bilateral carpal tunnel syndrome; Translations: [Carpal tunnel syndrome, bilateral upper limbs]Onset: 813778-45-2038KoodnjwUwjeu nervous system disorders (20 sources)Carpal tunnel syndrome of left wrist; Translations: [Carpal tunnel syndrome, left upper limb]Onset: 142250-73-7768RjuogcbIrdpe nervous system disorders (20 sources)Inattention; Translations: [Attention and concentration deficit] Onset: 650937-65-9439TkylvurDsnyy nervous system disorders (20 sources)Disorder of the peripheral nervous system; Translations: [Hereditary and idiopathic neuropathy, unspecified]Onset: 367096-91-8756TszuaqcQqbig nervous system disorders (20 sources)Tarsal tunnel syndrome; Translations: [Tarsal tunnel syndrome, unspecified lower limb]Onset: 141036-75-2095IvyxxgxZwmde nervous system disorders (4 sources)Abnormal gait; Translations: [Unsteadiness on feet]31-39-9032Vqugdyvd Other nervous system disorders (13 sources)Carpal tunnel syndrome of right wrist; Translations: [Carpal tunnel syndrome on right]Onset: Other non-epithelial cancer of skin (15 sources)Basal cell carcinoma of face; Translations: [Basal cell carcinoma of skin of face]Onset: 698414-15-9806FcfdksaMylfu non-traumatic joint disorders (4 sources)Charcot's joint, left ankle and foot; Translations: [CHARCOTS JOINT LEFT ANKLE AND FO]Onset: 44-34-8351UigpnvzJclzg non-traumatic joint disorders (3 sources)Charcot arthropathy of midfoot; Translations: [Charcot's joint, unspecified ankle and foot]16-86-9020NhpytshCnkma non-traumatic joint disorders (20 sources)Acute arthropathy; Translations: [Arthropathy, unspecified]Onset: 899234-96-7469MbyafgtCcchq non-traumatic joint disorders (20 sources)Charcot's arthropathy; Translations: [Charcot's joint, left ankle and foot]Onset: 453057-76-5816WofiurqVeeek non-traumatic joint disorders (1 source)Pain in left ankle and joints of left foot; Translations: [PAIN IN LEFT ANKLE]Onset: 94-01-0592ZlgeiccmEmyxh nutritional; endocrine; and metabolic disorders (2 sources)Obesity caused by energy imbalance; Translations: [Other obesity due to excess calories]47-10-5954QnqstpuDgsdm screening for suspected conditions (not mental disorders or infectious disease) (13 sources)Elevated C-reactive protein; Translations: [Elevated C-reactive protein (CRP)]89-07-0160Peyik skin disorders (1 source)Mass of neck; Translations: [Localized swelling, mass and lump, neck] EpisodicOther upper respiratory disease (20 sources)Seasonal allergy; Translations: [Other seasonal allergic rhinitis] Onset: 677514-54-3835RjgrcubIkofs upper respiratory disease (3 sources)Allergic rhinitis due to pollen; Translations: [Allergic rhinitis due to pollen]70-26-3792WenhssnGndhdwoc codes; unclassified (20 sources)Obstructive sleep apnea syndrome; Translations: [Obstructive sleep apnea (adult) (pediatric)]Onset: 259386-27-7676TizgpdvDmwqedjd codes; unclassified (20 sources)Hypersomnia; Translations: [Hypersomnia, unspecified]Onset: 264882-58-7803MqxbilaOrlchzjy codes; unclassified (2 sources)Localized edema; Translations: [Localized edema]Onset: 01-06-2023 EpisodicResidual codes; unclassified (2 sources)Edema, generalized; Translations: [Generalized edema]04-10-2025 EpisodicSepticemia (except in labor) (20 sources)Sepsis; Translations: [Methicillin resistant Staphylococcus aureus infection]Onset: 08-15-2018 Resolved: 906493-95-4008LpwnqgkjTcyx and subcutaneous tissue infections (4 sources)Infection of toe ; Translations: [Local infection of the skin and subcutaneous tissue, unspecified]39-68-8392BcffongjDphletfjvmt; intervertebral disc disorders; other back problems (20 sources)Discitis, unspecified, thoracic region; Translations: [Degeneration of thoracic intervertebral disc]Onset: 445768-24-6462RpakfsfGbyaqkf disorders (20 sources)Thyroid nodule; Translations: [Nontoxic single thyroid nodule]Onset: 349740-98-0303VmseabiXlluxseqgmzx (1 source)Pressure-induced deep tissue damage of other site; Translations: [Pressure-induced deep tissue damage of other site]Onset: 49-49-5711Ztjrrjr tract infections (20 sources)Acute cystitis; Translations: [Acute cystitis with hematuria]Onset: 48-18-6697OyvtfkyjNkwma infection (1 source)Viral disease; Translations: [Viral infection, unspecified]Episodic Past or Other Problems Problem ClassificationProblemDateDocumented DateEpisodic/ChronicAbdominal pain (20 sources)Female genital organ symptoms; Translations: [Pelvic and perineal pain]Onset: 53-97-8723GhxkwbvgErifrehae infection; unspecified site (20 sources)Methicillin resistant Staphylococcus aureus infection; Translations: [Bacteremia due to Methicillinresistant Staphylococcus aureus] Resolved: 139170-84-6465YkvdokecRyghexefke and other anemia (20 sources)Anemia; Translations: [Anemia, unspecified]Onset: 2022 99-70-9654ZfocnpuqAhbnwcxk mellitus without complication (20 sources)Hyperglycemia; Translations: [Hyperglycemia, unspecified]Onset: 368695-63-5218PnjyqydsNtaqb and electrolyte disorders (20 sources)Lactic acidosis; Translations: [Acidosis]Onset: 08-15-2018 Resolved: 105691-61-5674MgylwkaaWwhyxoss of lower limb (20 sources)Closed fracture of second metatarsal bone; Translations: [Nondisplaced fracture of second metatarsal bone, left foot, initial encounter for closed fracture]Onset: 27-58-1000YqfqnxocTtpcmtdem arthritis and osteomyelitis (except that caused by tuberculosis or sexually transmitted di sease) (20 sources)Suppurative arthritis; Translations: [Infective arthritis]Onset: 417909-54-0543ZejhhrygFbuiacy and fatigue (20 sources)Fatigue; Translations: [Other fatigue]Onset: EpisodicMedical examination/evaluation (2 sources)Encounter for general adult medical examination without abnormal findings; Translations: [Encounterfor general adult medical examination without abnormal findings]Onset: 91-57-7580PdfhbohsIpfa disorders (20 sources)Depressive disorder; Translations: [Major depressive disorder, single episode, unspecified]Onset: 07-20-2012 Resolved: 544415-72-7469FvfipkdYuctoogje of unspecified nature or uncertain behavior (20 sources)Neoplasm of uncertain behavior of skin; Translations: [Neoplasm of uncertain behavior of skin]Onset: 636848-51-8706XjonlejyXrudu PHILOSOPHY INSTRUCTOR infection and poliomyelitis (20 sources)Extradural and subdural abscess, unspecified; Translations: [Epidural abscess]Onset: 181043-78-3154MhbathbsMgmtr connective tissue disease (1 source)Spasm; Translations: [Spasm of muscle]EpisodicOther connective tissue disease (20 sources)Pain in left foot; Translations: [Pain in left foot]Onset: 036878-52-9575GsvqjabqWifau connective tissue disease (20 sources)Pain in limb; Translations: [Pain in unspecified limb]Onset: 845465-97-8755RtfzikubYecur connective tissue disease (20 sources)Muscle pain; Translations: [Myalgia, unspecified site]Onset: 544896-73-6087HwpqjkwmPyaqe connective tissue disease (20 sources)Spasm of cervical paraspinous muscle; Translations: [Other muscle spasm]Onset: 404681-18-0878KcfxgllsWmsdd connective tissue disease (20 sources)Bilateral trochanteric bursitis; Translations: [Trochanteric bursitis, right hip]Onset: 650506-98-0919XuhwgdgjZrlsr connective tissue disease (1 source)Pain in right foot; Translations: [Pain in right foot]Onset: 28-05-9214WapisthhHocir diseases of kidney and ureters (3 sources)Chronic renal insufficiency; Translations: [Disorder of kidney and ureter, unspecified]Onset: 132892-96-5070RazuboeyShoso nervous system disorders (20 sources)Metabolic encephalopathy; Translations: [Metabolic encephalopathy] Resolved: 656895-52-2781XjzgueuTrguh nervous system disorders (20 sources)Skin sensation disturbance; Translations: [Unspecified disturbances of skin sensation]Onset: 496518-40-9358GtqdymbaZhgrp non-epithelial cancer of skin (20 sources)Basal cell carcinoma of skin; Translations: [Basal cell carcinoma of skin, unspecified]Onset: 116497-20-9089MwiarlwrRbkrf screening for suspected conditions (not mental disorders or infectious disease) (20 sources)Elevated C-reactive protein; Translations: [Elevated C-reactive protein (CRP)]Onset: 319529-12-6825MaxzjqpuDsaiyikx codes; unclassified (20 sources)Insomnia; Translations: [Insomnia, unspecified]Onset: 03-08-2023 57-24-7686WnnkilndBmyonszpvld; intervertebral disc disorders; other back problems (20 sources)Radiculopathy, cervical region; Translations: [Acute thoracic back pain]Onset: 86-18-633799622241-53-1296BwwhvqomFolvzdyiapom (1 source)Patient encounter vvhoil04-46-5598 Results Test NameValueInterpretationReference RangeFacilityHemoglobin A1Con 08-03-2025 Glucose [Mass/Vol]103 mg/dLNormalOhiohealth Arthur G.H. Bing, Md, Cancer CenterComment on above:Result Comment: The ADA and AACC recommend providing the estimated average glucose result to permit better patient understanding of their HBA1c result.Performed By: #### MORPHX, CRP, BMP, CBC, SED #### [facility] [address] [place], [place] [id number] Alumni Relations Coordinator: Emily George MDHbA1c (Bld) [Mass fraction]5.2 %Normal4.0-6.0Ohio[facility] Bing, Md, Cancer CenterComment on above:Performed By: #### MORPHX, CRP, BMP, CBC, SED #### [facility] [address] [place], [place] [id number] Alumni Relations Coordinator: Dayan Mirza Metabolic Panelon 62-81-1036Degxe gap [Moles/Vol]9 mmol/L9 - 17 mmol/LBon Secours [facility] HealthCalcium [Mass/Vol]9.7 mg/dL8.6 - 10.4 mg/dLBon [facility]ours [facility] Systemy HealthChloride [Moles/Vol]102 mmol/L98 - 107 mmol/LBon [facility] HealthCO2 [Moles/Vol]27 mmol/L20 - 31 mmol/LBon [facility] HealthCreatinine [Mass/Vol]1.5 mg/dLHigh0.5 - 0.9 mg/dLBon [facility]ours [facility] Systemy HealthEst, Glom Filt Icju25Lsk- PINFBon Pike Community HospitalComment on above: These results are [...] secretion. Glucose [Mass/Vol]92 mg/dL70 - 99 mg/dLBon Pike Community HospitalInterpretation and review of laboratory resultsAbnormalBuchanan General HospitalPotassium [Moles/Vol]4.3 mmol/L3.7 - 5.3 mmol/LBon Pike Community HospitalSodium [Moles/Vol] 138 mmol/L135 - 144 mmol/LBon [facility]ike Community HospitalUrea nitrogen [Mass/Vol]17 mg/dL6 - 20 mg/dLBon [facility] HospitalBasic Metabolic Profon 62-01-1989Iiixa gap [Moles/Vol]9 mmol/LNormal9-17[facility] Comment on above:Performed By: #### MORPHX, CRP, BMP, CBC, SED #### [facility] [address] [place] [address] Alumni Relations Coordinator: SHER Mirzaalcium [Mass/Vol]9.7 mg/dLNormal8.6-10.4Ohio[facility] Bing, Md, Cancer CenterComment on above:Performed By: #### MORPHX, CRP, BMP, CBC, SED #### [facility] [address] [place] [address] Alumni Relations Coordinator: SHER Mirzahloride [Moles/Vol]102 mmol/TYmlnhq70-913YqjwmOhiohealth Arthur G.H. Bing, Md, Cancer CenterComment on above:Performed By: #### MORPHX, CRP, BMP, CBC, SED #### [facility] [address] [place] [address] Alumni Relations Coordinator: SHER MirzaO2 [Moles/Vol]27 mmol/HFvdfuq97-43HvmarOhiohealth Arthur G.H. Bing, Md, Cancer CenterComment on above:Performed By: #### MORPHX, CRP, BMP, CBC, SED #### [facility] [address] [place] [address] Alumni Relations Coordinator: SHER Mirzareatinine [Mass/Vol]1.5 mg/dLHigh0.5-0.9Ohio[facility] Md, Cancer CenterComment on above:Performed By: #### MORPHX, CRP, BMP, CBC, SED #### [facility] [address] [place] [address] Alumni Relations Coordinator: Emily George MDGFR/1.73 sq M.predicted among non-blacks MDRD (S/P/Bld) [Vol rate/Area]43 mL/min/{1.73_m2}Low>60Ohio[facility], Md, Cancer CenterComment on above:Result Comment: These results are [...] #### MORPHX, CRP, BMP, CBC, SED #### [facility] [address] [place] [address] Alumni Relations Coordinator: Emily George MDGlucose [Mass/Vol]92 mg/rSYfnawn11-56SwtarKindred Hospital LimaComment on above:Performed By: #### MORPHX, CRP, BMP, CBC, SED #### [facility] [address] [place] [address] Alumni Relations Coordinator: ANNMARIE Mirzaotassium [Moles/Vol]4.3 mmol/LNormal3.7-5.3MKindred Hospital LimaComment on above:Performed By: #### MORPHX, CRP, BMP, CBC, SED #### [facility] [address] [place] [id number] Alumni Relations Coordinator: MARIKA Mirzaodium [Moles/Vol]138 mmol/DNhptnu471-179VupibOhiohealth Arthur G.H. Bing, Md, Cancer CenterComment on above:Performed By: #### MORPHX, CRP, BMP, CBC, SED #### [facility] [address] [place] [address] Alumni Relations Coordinator: Emily George MDUrea nitrogen [Mass/Vol]17 mg/dLNormal6-20Ohio[facility], Md, Cancer CenterComment on above:Performed By: #### MORPHX, CRP, BMP, CBC, SED #### [facility] [address] [place] [address] Alumni Relations Coordinator: Emily George MDBanorton suburban hospital Metabolic Panelon [id number] gap [Moles/Vol]8 mmol/LLow9 - 17 mmol/LBon [facility] HealthCalcium [Mass/Vol] 10.1 mg/dL8.6 - 10.4 mg/dLBon [facility] HealthChloride [Moles/Vol]100 mmol/L 98 - 107 mmol/LBon [facility]ike Community HospitalCO2 [Moles/Vol]29 mmol/L20 - 31 mmol/LBon [facility] Community HospitalCreatinine [Mass/Vol]1.4 mg/dLHigh0.5 - 0.9 mg/dLBon [facility]ike Community HospitalEst, Glom Filt Qcuj17Mdn- PINFBon Pike [facility] Hospital Comment on above: These results are [...] secretion. Glucose [Mass/Vol]87 mg/dL70 - 99 mg/dLBon [facility] HealthPotassium [Moles/Vol]4.4 mmol/L3.7 - 5.3 mmol/LBon [facility]ike Community HospitalSodium [Moles/Vol] 137 mmol/L135 - 144 mmol/LBon [facility]ike Community HospitalUrea nitrogen [Mass/Vol]19 mg/dL6 - 20 mg/dLBon [facility]ike Community HospitalBasic Metabolic Profon 35-05-3170Vlejn gap [Moles/Vol]8 mmol/LLow9-17Ohio[facility] Md, Cancer CenterComment on above:Performed By: #### MORPHX, CRP, BMP, CBC, SED #### [facility] [address] [place] [id number] Alumni Relations Coordinator: SHER Mirzaalcium [Mass/Vol]10.1 mg/dLNormal8.6-10.4Ohio[facility], Md, Cancer CenterComment on above:Performed By: #### MORPHX, CRP, BMP, CBC, SED #### [facility] [address] [place] [id number] Alumni Relations Coordinator: SHER Mirzahloride [Moles/Vol]100 mmol/MUzeeyy52-373FleveOhiohealth Arthur G.H. Bing, Md, Cancer CenterCommunson medical center on above:Performed By: #### MORPHX, CRP, BMP, CBC, SED #### [facility] [address] [place] [address] Alumni Relations Coordinator: Emily George MDCO2 [Moles/Vol]29 mmol/WLqkdku38-17YtltuOhiohealth Arthur G.H. Bing, Md, Cancer CenterComment on above:Performed By: #### MORPHX, CRP, BMP, CBC, SED #### [facility] [address] [place] [id number] Alumni Relations Coordinator: SHER Mirzareatinine [Mass/Vol]1.4 mg/dLHigh0.5-0.9[facility] on above:Performed By: #### MORPHX, CRP, BMP, CBC, SED #### [facility] [address] [place] [id number] Alumni Relations Coordinator: Emily George MDGFR/1.73 sq M.predicted among non-blacks MDRD (S/P/Bld) [Vol rate/Area]47 mL/min/{1.73_m2}Low>60[facility], Cancer CenterCommunson medical center on above:Result Comment: These results are not [...] #### MORPHX, CRP, BMP, CBC, SED #### [facility] [address] [place] [address] Alumni Relations Coordinator: Emily George MDGlucose [Mass/Vol]87 mg/vIFlrqpc84-27SsbcwKindred Hospital LimaComment on above:Performed By: #### MORPHX, CRP, BMP, CBC, SED #### [facility] [address] [place] [address] Alumni Relations Coordinator: ANNMARIE Mirzaotassium [Moles/Vol]4.4 mmol/LNormal3.7-5.3MKindred Hospital LimaComment on above:Performed By: #### MORPHX, CRP, BMP, CBC, SED #### [facility] [address] [place] [address] Alumni Relations Coordinator: MARIKA Mirzaodium [Moles/Vol]137 mmol/ERmpxkq247-574IcrbxOhiohealth Arthur G.H. Bing, Md, Cancer CenterComment on above:Performed By: #### MORPHX, CRP, BMP, CBC, SED #### [facility] [address] [place] [address] Alumni Relations Coordinator: Emily George MDUrea nitrogen [Mass/Vol]19 mg/dLNormal6-20Ohio[facility] Md, Cancer CenterComment on above:Performed By: #### MORPHX, CRP, BMP, CBC, SED #### [facility] [address] [place] [address] Alumni Relations Coordinator: Emily George MDC-Reactive Proteinon [id number] High sensitivity method [Mass/Vol]16.1 mg/LHigh0.0 - 5.0 mg/LBon [facility] CRP [Mass/Vol]16.1 mg/LHigh0.0-5.0[facility] Cancer CenterCommunson medical center on above: Performed By: #### MORPHX, CRP, BMP, CBC, SED #### [facility] [address] [place] [address] Alumni Relations Coordinator: Angy Mirza 30-19-2001Xvxtxnccild distribution width (RBC) [Ratio]17.1 %High12.1 - 15.2 %[facility]anan General HospitalHematocrit (Bld) [Volume fraction]34.3 %Low36.0 - 46.0 %[facility] General HospitalHemoglobin (Bld) [Mass/Vol]11.0 g/dLLow12.0 - 16.0 g/dLBon Pike Community HospitalInterpretation and review of laboratory resultsAbnormalJohnston Memorial Hospital (RBC) [Entitic mass]28.2 pg26.0 - 34.0 pgSentara Norfolk General HospitalHC (RBC) [Mass/Vol]32.1 g/dL 31.0 - 37.0 g/dLBon [facility] HospitalV (RBC) [Entitic vol]87.9 fL80.0 - 100.0 fLBuchanan General HospitalPlatelet mean volume (Bld) [Entitic vol]11.4 fL 6.0 - 12.0 fLBuchanan General HospitalPlatelets (Bld) [#/Vol]218 10*3/uLBon [facility]ike Community HospitalRBC (Bld) [#/Vol]3.90 10*6/uLLow4.00 - 5.20 m/uLBuchanan General HospitalWBC other (Bld) [#/Vol]9.9Bon [facility] HospitalErythrocyte distribution width (RBC) [Ratio]17.1 %High12.1-15.2[facility] HospitalComment on above:Performed By: #### MORPHX, CRP, BMP, CBC, SED #### [facility] [address] [place] [address] Alumni Relations Coordinator: Emily George MDHematocrit (Bld) [Volume fraction]34.3 %Low 36.0-46.0[facility] Md, Cancer CenterComment on above:Performed By: #### MORPHX, CRP, BMP, CBC, SED #### [facility] [address] [place] [id number] Alumni Relations Coordinator: Emily George MDHemoglobin (Bld) [Mass/Vol]11.0 g/dLLow12.0-16.0 [facility], Cancer CenterComment on above:Performed By: #### MORPHX, CRP, BMP, CBC, SED #### [facility] [address] [place] [address] Alumni Relations Coordinator: ELISABET MirzaCH (RBC) [Entitic mass]28.2 atQgnsat05.0-34.0 [facility], Cancer CenterComment on above:Performed By: #### MORPHX, CRP, BMP, CBC, SED #### [facility] [address] [place] [id number] Alumni Relations Coordinator: VINCENT MirzaC (RBC) [Mass/Vol]32.1 g/eHHvbhpe91.0-37.0[facility], Cancer CenterComment on above:Performed By: #### MORPHX, CRP, BMP, CBC, SED #### [facility] [address] [place] [id number] Alumni Relations Coordinator: ELISABET MirzaCV (RBC) [Entitic vol]87.9 wZYwoejz89.0-100.0 [facility], Cancer CenterComment on above:Performed By: #### MORPHX, CRP, BMP, CBC, SED #### [facility] [address] [place] [id number] Alumni Relations Coordinator: ANNMARIE Mirzalatelet mean volume (Bld) [Entitic vol]11.4 fL Normal6.0-12.0[facility], Md, Cancer CenterComment on above:Performed By: #### MORPHX, CRP, BMP, CBC, SED #### [facility] [address] [place] [id number] Alumni Relations Coordinator: Terrence Mriza (Bld) [#/Vol]218 10*3/tBUjibbm146-679 [facility] Cancer CenterCommunson medical center on above:Performed By: #### MORPHX, CRP, BMP, CBC, SED #### [facility] [address] [place], [place] [id number] Alumni Relations Coordinator: ELMO Mirza (Bld) [#/Vol]3.90 10*6/uLLow4.00-5.20[facility] on above:Performed By: #### MORPHX, CRP, BMP, CBC, SED #### [facility] [address] [place] [address] Alumni Relations Coordinator: LLOYD Mirza (Bld) [#/Vol]9.9 10*3/uLNormal3.5-11.0[facility] on above:Performed By: #### MORPHX, CRP, BMP, CBC, SED #### [facility] [address] [place], [place] [id number] Alumni Relations Coordinator: Kiara Mirza Panel Informationon 04-47-5224Ngeporaqzbzicg and review of laboratory resultsAbWellmont Health Systemdimentation Rateon [id number] Photometric method (Bld) [Velocity]42HighBuchanan General HospitalInterpretation and review of laboratory resultsAbSpearfish Surgery CenterSedimentation Rate42 mm/HrHigh0-20[facility], Cancer CenterCommunson medical center on above:Performed By: #### MORPHX, CRP, BMP, CBC, SED #### [facility] Lab [address] [place] [address] Alumni Relations Coordinator: SHER Mirzareatinine, Random Urineon [id number] (U) [Mass/Vol]52.4 mg/dL28.0 - 217.0 mg/dLBon Secours Mercy HealthComment on above:Reference range defined for 1st morning urineCreatinine,Random Uron [id number] [Mass/Vol]52.4 mg/sASedqjo85.0-217.0[facility] Comment on above:Result Comment: Reference range defined for 1st morning urine Performed By: #### MORPHX, CRP, BMP, CBC, SED #### [facility] Lab [address] [place] [address] Alumni Relations Coordinator: Kiara Mirza Panel Informationon [id number] [facility], [place] [id number].intact [Mass/Vol]40.0 pg/mL17.9 - 58.6 pg/mLBon [facility] Community HospitalBon [facility], Yvluld58.0 pg/mL Sztoif26.9-58.6MKindred Hospital LimaComment on above:Performed By: #### MORPHX, CRP, BMP, CBC, SED #### [facility] Lab [address] [place] [address] Alumni Relations Coordinator: Emily George MDProtein, urine, randomon [id number] (U) [Mass/Vol]mg/dLmg/dLBon Pike Community HospitalComment on above:No normal range established.Protein,Tot,[place] Uron 37-75-1952Sme Prot. Conc.<4NormalOhiohealth Arthur G.H. Bing, Md, Cancer CenterComment on above:Result Comment: No normal range established.Performed By: #### MORPHX, CRP, BMP, CBC, SED #### [facility] Lab [address] [place] [address] Alumni Relations Coordinator: LASHAY Mirzaenal Function Panelon [id number] [Mass/Vol]4.2 g/dL3.5 - 5.2 g/dLBon Pike Community HospitalAnion gap [Moles/Vol]12 mmol/L9 - 17 mmol/LBon Pike Community HospitalCalcium [Mass/Vol]9.2 mg/dL8.6 - 10.4 mg/dLBon Pike Community HospitalChloride [Moles/Vol]99 mmol/L98 - 107 mmol/LBon Pike Community HospitalCO2 [Moles/Vol]24 mmol/L20 - 31 mmol/LBon [facility]ike Community HospitalCreatinine [Mass/Vol]1.3 mg/dLHigh0.5 - 0.9 mg/dLBon [facility] Hospital Est, Glom Filt Dzud83Cyx- PINFBon Pike Community HospitalComment on above: These results are [...] that affects renal tubular secretion. Glucose [Mass/Vol]110 mg/wKMhfw04 - 99 mg/dLBon [facility] Interpretation and review of laboratory resultsAbnormalBon [facility] Phosphate [Mass/Vol]3.9 mg/dL2.6 - 4.5 mg/dLBon [facility]ike Community HospitalPotassium [Moles/Vol]4.5 mmol/L3.7 - 5.3 mmol/LBon [facility]ike Community HospitalSodium [Moles/Vol] 135 mmol/L135 - 144 mmol/LBon [facility]ike Community HospitalUrea nitrogen [Mass/Vol]23 mg/dLHigh6 - 20 mg/dLBon [facility] Veterans Memorial HospitalAlbumin [Mass/Vol]4.2 g/dLNormal3.5-5.2MercSaint Francis Medical CenterComment on above:Performed By: #### MORPHX, CRP, BMP, CBC, SED #### [facility] Lab [address] [place] [address] Alumni Relations Coordinator: Myles Mirza gap [Moles/Vol]12 mmol/LNormal9-17[facility], Cancer CenterCommunson medical center on above:Performed By: #### MORPHX, CRP, BMP, CBC, SED #### [facility] Lab [address] [place] [address] Alumni Relations Coordinator: SHER Mirzaalcium [Mass/Vol]9.2 mg/dLNormal8.6-10.4[facility] Md, Cancer CenterComment on above:Performed By: #### MORPHX, CRP, BMP, CBC, SED #### [facility] Lab [address] [place] [phone] Alumni Relations Coordinator: SHER Mirzahloride [Moles/Vol]99 mmol/CQawyjf33-332SypfsOhiohealth Arthur G.H. Bing, Md, Cancer CenterCommunson medical center on above:Performed By: #### MORPHX, CRP, BMP, CBC, SED #### [facility] Lab [address] [place] [phone] Alumni Relations Coordinator: SHER MirzaO2 [Moles/Vol]24 mmol/GMqzgra20-56VxazaOhiohealth Arthur G.H. Bing, Md, Cancer CenterCommunson medical center on above:Performed By: #### MORPHX, CRP, BMP, CBC, SED #### [facility] Lab [address] [place] [address] Alumni Relations Coordinator: SHER Mirzareatinine [Mass/Vol]1.3 mg/dLHigh0.5-0.9[facility] on above:Performed By: #### MORPHX, CRP, BMP, CBC, SED #### [facility] Lab [address] [place] [phone] Alumni Relations Coordinator: Emily George MDGFR/1.73 sq M.predicted among non-blacks MDRD (S/P/Bld) [Vol rate/Area]51 mL/min/{1.73_m2}Low>60[facility] Cancer CenterCommunson medical center on above:Result Comment: These results are not [...] #### MORPHX, CRP, BMP, CBC, SED #### [facility] Lab [address] [place] [address] Alumni Relations Coordinator: Emily George MDGlucose [Mass/Vol]110 mg/gAJvch54-79HadiuKindred Hospital LimaComment on above:Performed By: #### MORPHX, CRP, BMP, CBC, SED #### [facility] Lab [address] [place] [address] Alumni Relations Coordinator: ANNMARIE Mirzahosphorus, Inorg.3.9 mg/dLNormal2.6-4.5[facility] Md, Cancer CenterComment on above:Performed By: #### MORPHX, CRP, BMP, CBC, SED #### [facility] Lab [address] [place] [address] Alumni Relations Coordinator: ANNMARIE Mirzaotassium [Moles/Vol]4.5 mmol/LNormal3.7-5.3MKindred Hospital LimaComment on above:Performed By: #### MORPHX, CRP, BMP, CBC, SED #### [facility] Lab [address] [place] [address] Alumni Relations Coordinator: MARIKA Mirzaodium [Moles/Vol]135 mmol/GQababk626-379FrntkOhiohealth Arthur G.H. Bing, Md, Cancer CenterComment on above:Performed By: #### MORPHX, CRP, BMP, CBC, SED #### [facility] Lab [address] [place] [address] Alumni Relations Coordinator: Emily George MDUrea nitrogen [Mass/Vol]23 mg/dLHigh6-20[facility] Md, Cancer CenterComment on above:Performed By: #### MORPHX, CRP, BMP, CBC, SED #### [facility] Lab [address] [place] [address] Alumni Relations Coordinator: Emily George MDVitamin D 25 Hydroxyon [id number]-yniwnzilpmedqf D3 [Mass/Vol]29.2 ng/mLLow30.0 - 100.0 ng/mLBuchanan General HospitalComment on above: Reference Range: Vitamin D status Range Deficiency <20 ng/mL Mild Deficiency 20-30 ng/mL Sufficiency 30-100 ng/mL Toxicity >100 ng/mL Interpretation and review of laboratory resultsAbnormalBon [facility] Bon [facility]ike Community HospitalVitamin D 25 OHon [id number] D 25 OH29.2 ng/mLLow 30.0-100.0[facility] Cancer CenterCommunson medical center on above:Result Comment: Reference Range: Vitamin D status Range Deficiency <20 ng/mL Mild Deficiency 20-30 ng/mL Sufficiency 30-100 ng/mL Toxicity >100 ng/mLPerformed By: #### MORPHX, CRP, BMP, CBC, SED #### [facility] Lab [address] [place] [address] Alumni Relations Coordinator: ARPAN Mirza CERVICAL SPINE COMPLETE 4-5 VIEWSon [...] BY: Gregorio Davila, DONormalNot AvailableBasic Metabolic Panelon [id number] gap [Moles/Vol]12 mmol/L9 - 17 mmol/LBon Pike Community HospitalCalcium [Mass/Vol]9.3 mg/dL8.6 - 10.4 mg/dLBon [facility] Chloride [Moles/Vol]104 mmol/L98 - 107 mmol/LBon Pike Community HospitalCO2 [Moles/Vol]22 mmol/L20 - 31 mmol/LBon [facility]ike Community HospitalCreatinine [Mass/Vol] 1.3 mg/dLHigh0.5 - 0.9 mg/dLBon Pike Community HospitalEst, Glom Filt Kfkw67Jvo- PINFBon Pike Community HospitalComment on above: These results are [...] that affects renal tubular secretion. Glucose [Mass/Vol]131 mg/tCHgji84 - 99 mg/dLBon Pike Community HospitalPotassium [Moles/Vol]4.4 mmol/L3.7 - 5.3 mmol/LBon Pike Community HospitalSodium [Moles/Vol] 138 mmol/L135 - 144 mmol/LBon Pike Community HospitalUrea nitrogen [Mass/Vol]17 mg/dL6 - 20 mg/dLBon [facility]ike Community HospitalBasic Metabolic Profon [id number] gap [Moles/Vol]12 mmol/LNormal9-17[facility] Md, Cancer CenterComment on above: Performed By: #### MORPHX, CRP, BMP, CBC, SED #### [facility] Lab [address] [place] [address] Alumni Relations Coordinator: SHER Mirzaalcium [Mass/Vol]9.3 mg/dLNormal8.6-10.4[facility] Md, Cancer CenterComment on above:Performed By: #### MORPHX, CRP, BMP, CBC, SED #### [facility] Lab [address] [place] [phone] Alumni Relations Coordinator: SHER Mirzahloride [Moles/Vol]104 mmol/ZZzwwnd02-691DzxctOhiohealth Arthur G.H. Bing, Md, Cancer CenterCommunson medical center on above:Performed By: #### MORPHX, CRP, BMP, CBC, SED #### [facility] Lab [address] [place] [phone] Alumni Relations Coordinator: SHER MirzaO2 [Moles/Vol]22 mmol/LClpvcf10-95CwwooOhiohealth Arthur G.H. Bing, Md, Cancer CenterComment on above:Performed By: #### MORPHX, CRP, BMP, CBC, SED #### [facility] Lab [address] [phone] Alumni Relations Coordinator: SHER Mirzareatinine [Mass/Vol]1.3 mg/dLHigh0.5-0.9[facility], Cancer CenterCommunson medical center on above:Performed By: #### MORPHX, CRP, BMP, CBC, SED #### [facility] Lab [address] [place] [address] Alumni Relations Coordinator: Emily George MDGFR/1.73 sq M.predicted among non-blacks MDRD (S/P/Bld) [Vol rate/Area]52 mL/min/{1.73_m2}Low>60[facility] Md, Cancer CenterComment on above:Result Comment: These results are [...] #### MORPHX, CRP, BMP, CBC, SED #### [facility] Lab [address] [place] [phone] Alumni Relations Coordinator: Emily George MDGlucose [Mass/Vol]131 mg/rUKdus89-64GlhtsKindred Hospital LimaComment on above:Performed By: #### MORPHX, CRP, BMP, CBC, SED #### [facility] Lab [address] [place] [phone] Alumni Relations Coordinator: ANNMARIE Mirzaotassium [Moles/Vol]4.4 mmol/LNormal3.7-5.3MKindred Hospital LimaCommunson medical center on above:Performed By: #### MORPHX, CRP, BMP, CBC, SED #### [facility] Lab [address] [place] [address] Alumni Relations Coordinator: MARIKA Mirzaodium [Moles/Vol]138 mmol/FQhwnph313-557WnkqtOhiohealth Arthur G.H. Bing, Md, Cancer CenterCommunson medical center on above:Performed By: #### MORPHX, CRP, BMP, CBC, SED #### [facility] Lab [address] [place] [address] Alumni Relations Coordinator: Emily George MDUrea nitrogen [Mass/Vol]17 mg/dLNormal6-20[facility] Md, Cancer CenterComment on above:Performed By: #### MORPHX, CRP, BMP, CBC, SED #### [facility] Lab [address] [place] [address] Alumni Relations Coordinator: SHER Mirza-Reactive Proteinon [id number] High sensitivity method [Mass/Vol]6.2 mg/LHigh0.0 - 5.0 mg/LBon [facility] Hospital CRP [Mass/Vol]6.2 mg/LHigh0.0-5.0[facility] Md, Cancer CenterComment on above: Performed By: #### MORPHX, CRP, BMP, CBC, SED #### [facility] Lab [address] [place] [phone] Alumni Relations Coordinator: SHER MirzaBCon 26-41-5230Glsivewzhce distribution width (RBC) [Ratio]19.4 %High12.1 - 15.2 %Bon [facility] Community HospitalHematocrit (Bld) [Volume fraction]32.3 %Low36.0 - 46.0 %Buchanan General HospitalHemoglobin (Bld) [Mass/Vol]9.9 g/dLLow12.0 - 16.0 g/dLBon Pike Community HospitalInterpretation and review of laboratory resultsAbnormalBon ProMedica Toledo HospitalH (RBC) [Entitic mass]28.0 pg26.0 - 34.0 pgBon [facility]Medica Toledo HospitalHC (RBC) [Mass/Vol]30.7 g/dL Low31.0 - 37.0 g/dLBon Secours Mercy HealthMCV (RBC) [Entitic vol]91.2 fL80.0 - 100.0 fLBon Pike Community HospitalPlatelet mean volume (Bld) [Entitic vol]11.7 fL 6.0 - 12.0 fLBon [facility] Francisco HealthPlatelets (Bld) [#/Vol]154 10*3/uLBon Pike Community HospitalRBC (Bld) [#/Vol]3.54 10*6/uLLow4.00 - 5.20 m/uLBon [facility]ike Community HospitalWBC other (Bld) [#/Vol]3.8Bon [facility] Veterans Memorial HospitalErythrocyte distribution width (RBC) [Ratio]19.4 %High12.1-15.2MKindred Hospital LimaComment on above:Performed By: #### MORPHX, CRP, BMP, CBC, SED #### [facility] Lab [address] [place] [address] Alumni Relations Coordinator: Emily George MDHematocrit (Bld) [Volume fraction]32.3 %Low 36.0-46.0[facility] Md, Cancer CenterComment on above:Performed By: #### MORPHX, CRP, BMP, CBC, SED #### [facility] Lab [address] [place] [address] Alumni Relations Coordinator: Emily George MDHemoglobin (Bld) [Mass/Vol]9.9 g/dLLow12.0-16.0 [facility], Cancer CenterComment on above:Performed By: #### MORPHX, CRP, BMP, CBC, SED #### [facility] Lab [address] [place] [address] Alumni Relations Coordinator: ELISABET MirzaCH (RBC) [Entitic mass]28.0 zrRuyuci69.0-34.0 [facility] CenterCommunson medical center on above:Performed By: #### MORPHX, CRP, BMP, CBC, SED #### [facility] Lab [address] [place] [address] Alumni Relations Coordinator: VINCENT MirzaC (RBC) [Mass/Vol]30.7 g/dLLow31.0-37.0[facility], Cancer CenterComment on above:Performed By: #### MORPHX, CRP, BMP, CBC, SED #### [facility] Lab [address] [place] [address] Alumni Relations Coordinator: ELISABET MirzaCV (RBC) [Entitic vol]91.2 jXAmspnu53.0-100.0 [facility], Cancer CenterComment on above:Performed By: #### MORPHX, CRP, BMP, CBC, SED #### [facility] Lab [address] [place] [phone] Alumni Relations Coordinator: Haja Mirza mean volume (Bld) [Entitic vol]11.7 fL Normal6.0-12.0[facility] Md, Cancer CenterComment on above:Performed By: #### MORPHX, CRP, BMP, CBC, SED #### [facility] Lab [address] [place] [address] Alumni Relations Coordinator: Terrence Mirza (Bld) [#/Vol]154 10*3/hMTyaqwk059-504 [facility] CenterCommunson medical center on above:Performed By: #### MORPHX, CRP, BMP, CBC, SED #### [facility] Lab [address] [place] [address] Alumni Relations Coordinator: ELMO Mirza (Bld) [#/Vol]3.54 10*6/uLLow4.00-5.20[facility], Cancer CenterComment on above:Performed By: #### MORPHX, CRP, BMP, CBC, SED #### [facility] Lab [address] [place] [address] Alumni Relations Coordinator: LLOYD Mirza (Bld) [#/Vol]3.8 10*3/uLNormal3.5-11.0[facility], Cancer CenterComment on above:Performed By: #### MORPHX, CRP, BMP, CBC, SED #### [facility] Lab [address] [place] [address] Alumni Relations Coordinator: ELISABET MirzaORPHOLOGY CHECKon [id number] Rehan (Bld) [Interp]MODERATE ANISOCYTOSISInova Children's Hospital Morphology Checkon [id number] Rehan (Bld) [Interp]MODERATENormalMerSUNY Downstate Medical CenterComment on above:Result Comment: ANISOCYTOSISPerformed By: #### MORPHX, CRP, BMP, CBC, SED #### [facility] Lab [address] [place] [phone] Alumni Relations Coordinator: Emily George MDNo Panel Informationon [id number] and review of laboratory resultsAbnormalInova Children's HospitalSedimentation Rateon [id number] Rate19 mm/HrNormal0-20 [facility] CenterCommunson medical center on above:Performed By: #### MORPHX, CRP, BMP, CBC, SED #### [facility] Lab [address] [place] [address] Alumni Relations Coordinator: Emily George MDESR Photometric method (Bld) [Velocity]19Bon [facility] Veterans Memorial HospitalCom Metabolic Profon 04-14-2025 Albumin [Mass/Vol]4.2 g/dLNormal3.5-5.2MKindred Hospital LimaCommunson medical center on above: Performed By: #### LIPR, GLYHGB ####[facility] [address]so[address]pwfqr[address] [place], [place] [address] Lab Director: Placido Pierce MD#### CP ####[facility] [address] [place] [address] Lab Director: Emily George MD#### INSU ####[facility] Wsbgstxysuah[address]27 [place] [address] Lab Director: Placido Pierce, [facility] [address] [place], [place] [phone] Director: Emily George MD Albumin/Glob Ratio1.2Oggjgk3.0-2.5[facility], Md, Cancer CenterComment on above: Performed By: #### LIPR, GLYHGB ####[facility] [address]eloxrq[address] [place] [address] Lab Director: Placido Pierce MD#### CP ####[facility] [address] [place], [place] [phone] Director: Emily George MD#### INSU ####[facility] Rgzwnvfuyygx56[address] [place], [place] [phone] Director: Placido Pierce, [facility] [address] [place], [place] [phone] Director: Eimly George MD Alkaline Aqga287 U/WEkgs18-946NzhbnOhiohealth Arthur G.H. Bing, Md, Cancer CenterComment on above:Performed By: #### KINDRA GLYHGB ####[facility] [address]thcdkxdh[address] [place] [address] Lab Director: Placido Pierce MD#### CP ####[facility] Y[address] [place], [place] [phone] Director: Emily George MD#### INSU ####[facility] L[address]zrndgrpnn98[address] [place] [address] Lab Director: Placido Pierce, [facility] [address] [place], [place] [phone] Director: Emily George MD ALT [Catalytic activity/Vol]23 U/LNormal5-33[facility], Md, Cancer CenterComment on above:Performed By: #### LIPR, GLYHGB ####[facility] [address]imlibgirmw[address] [place] [address] Lab Director: Placido Pierce MD#### CP ####[facility] [address] [place] [phone] Director: Emily George MD#### INSU ####[facility] Wnomhmbsspxf8789 [place] [address] Lab Director: Placido Pierce, [facility] R[address] [place] [address] Lab Director: Talisha Mirzaon gap [Moles/Vol]14 mmol/LNormal9-17[facility] Comment on above:Performed By: #### LIPR, GLYHGB ####[facility] Kguvtivrehpk1839 [place] [address] Lab Director: Placido Pierce MD#### CP ####[facility] X[address] [place] [phone] Director: Eimly George MD#### INSU ####[facility] Mvcjmxdtxizk0390 [place] [address] Lab Director: Placido Pierce [facility] [address] [place] [address] Lab Director: Emily George MDAST [Catalytic activity/Vol]22 U/LNormal<32[facility] Md, Cancer CenterComment on above:Performed By: #### LIPR, GLYHGB ####[facility] Dzigqeacnkuo1037 [place] [address] Lab Director: Placido Pierce MD#### CP ####[facility] [address] [place] [address] Lab Director: Emily George MD#### INSU ####[facility] Gbekamvhekav[address] [place] [address] Lab Director: Placido Pierce [facility] Q[address] [place] [address] Lab Director: Emily George MDBilirubin [Mass/Vol]0.5 mg/dL Normal0.3-1.2MKindred Hospital LimaComment on above:Performed By: #### LIPR, GLYHGB ####[facility] Ruxtnqzvpqvi2208 [place], [place] [phone] Director: Placido Pierce MD#### CP ####[facility] [address] [place], [place] [phone] Director: Emily George MD#### INSU ####[facility] [address]pt[address]ttwtfth[address] [place], [place] [phone] Director: Placido PierceRegency Hospital [facility] West Hsp1707 [place], [place] [phone] Director: SHER Mirzaalcium [Mass/Vol] 9.4 mg/dLNormal8.6-10.4[facility] Md, Cancer CenterComment on above:Performed By: #### LIPR, GLYHGB ####[facility] Ukghmcaroyzy08[address] [place], [place] [phone] Director: Placido Pierce MD#### CP ####[facility] Xmi[address] [place], [place] [phone] Director: Emily George MD#### INSU ####[facility] Ejjtukddlutp8439 [place], [place] [phone] Director: Placido Pierce, [facility] Okh[address] [place], [place] [phone] Director: Emily George MD Chloride [Moles/Vol]99 mmol/FAeogfx88-212QikgzOhiohealth Arthur G.H. Bing, Md, Cancer CenterComment on above: Performed By: #### LIPR, GLYHGB ####[facility] A[address]wwctxsaoz[address] [place], [place] [phone] Director: Placido Pierce MD#### CP ####[facility] [address] [place] [address] Lab Director: Emily George MD#### INSU ####[address] [place] [address] Lab Director: Placido Pierce, [facility] [address] [place] [address] [phone] Director: Emily George MD CO2 [Moles/Vol]26 mmol/MFqzpuq83-14TrgsqOhiohealth Arthur G.H. Bing, Md, Cancer CenterComment on above: Performed By: #### LIPR, GLYHGB ####[address] [place], [place] [phone] Director: Placido Pierce MD#### CP ####[address] [address] Lab Director: Emily George MD#### INSU ####[address] [address] Lab Director: Placido Pierce, [address] [address] Lab Director: Emily George MD Creatinine [Mass/Vol]1.4 mg/dLHigh0.5-0.9[facility], Md, Cancer CenterComment on above: Performed By: #### LIPR, GLYHGB ####[facility] Pbzhnoxljlnr9696 [place] [address] Lab Director: Placido Pierce MD#### CP ####[facility] [address] [place], [place] [phone] Director: Emily George MD#### INSU ####[address] [address] Lab Director: Placido Pierce, [facility] [address] [place], [place] [phone] Director: Emily George MD GFR/1.73 sq M.predicted among non-blacks MDRD (S/P/Bld) [Vol rate/Area]47 mL/min/{1.73_m2}Low>60[facility] Md, Cancer CenterComment on above:Result Comment: These results are [...] renal tubular secretion.Performed By: #### LIPMeka GLYHGB ####[address] [place], [place] [phone] Director: Placido Pierce MD#### CP ####[facility] [address] [place], [place] [phone] Director: Emily George MD#### INSU ####[address] [place], [place] [phone] Director: Placido Pierce, [facility] [address] [place], [place] [phone] Director: Emily George MDGlucose [Mass/Vol]114 mg/dLHigh 70-99MKindred Hospital LimaComment on above:Performed By: #### LIPR, GLYHGB ####[facility] [address]tm[address] [place], [place] [phone] Director: Placido Pierce MD#### CP ####[facility] [address] [place], [place] [phone] Director: Emily George MD#### INSU ####[facility] Xjjmhyettzfe8954 [place] [address] Lab Director: Placido Pierce, [facility] Tth[address] [place] [address] Lab Director: ANNMARIE Mirzaotassium [Moles/Vol]4.1 mmol/L Normal3.7-5.3MKindred Hospital LimaComment on above:Performed By: #### LIPR, GLYHGB ####[facility] [address] [place] [address] Lab Director: Placido Pierce MD#### CP ####[facility] [address] [place] [address] Lab Director: Emily George MD#### INSU ####[address] [address] Lab Director: Placido Pierce, [facility] [address] [place] [address] Lab Director: ANNMARIE Mirzarotein [Mass/Vol] 7.2 g/dLNormal6.4-8.3MKindred Hospital LimaComment on above:Performed By: #### LIPR, GLYHGB ####[address] [phone] Director: Placido Pierce MD#### CP ####[facility] [address] [place] [address] Lab Director: Emily George MD#### INSU ####[address] [address] Lab Director: Placido Pierce, [facility] Nzp[address] [place] [address] Lab Director: Emily George MD Sodium [Moles/Vol]139 mmol/SWatecb147-644Mjmue Willard HospitalComment on above: Performed By: #### LIPR, GLYHGB ####[facility] Txmzcrlxueap6650 [place] [address] Lab Director: Placido Pierce MD#### CP ####[facility] Unv[address] [place] [address] Lab Director: Emily George MD#### INSU ####[facility] Dvkneqyybjbo7850 [place] [address] Lab Director: Placido Pierce, [facility] Dpk9306 [place] [address] Lab Director: Emily George MD Urea nitrogen [Mass/Vol]18 mg/dLNormal6-20Ohio[facility] Arthur G.H. Bing, Md, Cancer CenterComment on above:Performed By: #### LIPR, GLYHGB ####[facility] [place], [place] [phone] Director: Placido Pierce MD#### CP ####[facility] Chy[address] [place] [phone] Director: Emily George MD#### INSU ####[facility] [place] [address] Lab Director: Placido Pierce, [facility] Wcx4275 [place] [address] Lab Director: SHER Mirzaomprehensive Metabolic Panelon 73-06-7701Sykuvwm [Mass/Vol]4.2 g/dL3.5 - 5.2 g/dLBon [facility]ike Community HospitalAlbumin/Globulin [Mass ratio]1.4 {ratio}1.0 - 2.5Bon [facility]ike Community HospitalALP [Catalytic activity/Vol]109 U/LHigh 35 - 104 U/LBon [facility]ike Community HospitalALT [Catalytic activity/Vol]23 U/L5 - 33 U/L Bon [facility] HospitalAnion gap [Moles/Vol]14 mmol/L9 - 17 mmol/LBon [facility] Community HospitalAST [Catalytic activity/Vol]22 U/LNINF - 32 U/LBon [facility]ike Community HospitalBilirubin [Mass/Vol]0.5 mg/dL0.3 - 1.2 mg/dLBon [facility] Calcium [Mass/Vol]9.4 mg/dL8.6 - 10.4 mg/dLBon [facility]ike Community HospitalChloride [Moles/Vol]99 mmol/L98 - 107 mmol/LBon [facility]ike Community HospitalCO2 [Moles/Vol]26 mmol/L20 - 31 mmol/LBon [facility] Community HospitalCreatinine [Mass/Vol]1.4 mg/dLHigh 0.5 - 0.9 mg/dLBon Pike Community HospitalEst, Glom Filt Znki86Xyt- PINFBon Pike Community HospitalComment on above: These results are [...] that affects renal tubular secretion. Glucose [Mass/Vol]114 mg/yHJqdv77 - 99 mg/dLBon [facility] Interpretation and review of laboratory resultsAbnormalBuchanan General Hospital Potassium [Moles/Vol]4.1 mmol/L3.7 - 5.3 mmol/LBon [facility]ike Community HospitalProtein [Mass/Vol]7.2 g/dL6.4 - 8.3 g/dLBon [facility]ike Community HospitalSodium [Moles/Vol]139 mmol/L135 - 144 mmol/LBon [facility]ike Community HospitalUrea nitrogen [Mass/Vol]18 mg/dL6 - 20 mg/dLBon [facility] Johnson Veterans Memorial HospitalHemoglobin A1Con 42-91-9991Plnyovh glucose Estimated from glycated hemoglobin (Bld) [Mass/Vol]123 mg/dLBon Pike Community HospitalComment on above:The ADA and AACC recommend providing the estimated average glucose result to permit better patient understanding of their HBA1c result. HbA1c (Bld) [Mass fraction]5.9 %4.0 - 6.0 %Bon [facility] Community HospitalBon Pike Community HospitalGlucose [Mass/Vol]123 mg/dLNormMercy Health St. Rita's Medical CenterComment on above:Result Comment: The ADA and AACC recommend providing the estimated average glucose result to permit better patient understanding of their HBA1c result.Performed By: #### LIPR, GLYHGB ####[facility] Qprdnrlybpfw5493 [place], [place] [phone] Director: Placido Pierce MD#### CP ####[facility] Ysl[address] [place], [place] [phone] Director: Emily George MD#### INSU ####[facility] Whtuftxqktwd4363 [place], [place] [phone] Director: Placido Pierce, [facility] Sgr[address] [place] [address])[phone] Director: Emily George MD HbA1c (Bld) [Mass fraction]5.9 %Normal4.0-6.0Ohio[facility] Arthur G.[facility]. Bing, Md, Cancer CenterComment on above:Performed By: #### LIPR, GLYHGB ####[facility] Pffmwfywvuih8145 [place], [place] [phone] Director: Placido Pierce MD#### CP ####[facility] Kzo3265 [place], [place] [phone] Director: Emily George MD#### INSU ####[facility] Hqsycoevpdtc4190 [place], [place] [phone] Director: Placido Pierce, [facility] Osu6[address] [place], [place] [address])[phone] Director: Emily George MDInsulinon 13-82-7242Moanomp78.0 mU/LNMercy Health St. [facility] Comment on above:Performed By: #### LIPR, GLYHGB ####[facility] Apltcahyeawh9212 [place] [address] Lab Director: Placido Pierce MD#### CP ####[facility] Qct0082 [place] [phone] Director: Emily George MD#### INSU ####[address] [phone] Director: Placido Pierce [facility] Jed[address] [place] [address] Lab Director: Richard Mirza RangeNormalOhiohealth Arthur G.H. Bing, Md, Cancer CenterComment on above: Result Comment: Fastin.6-24.9 30 min: 20-112 60 min: 29-88 90 min: 26-84 120 min: 22-79Performed By: #### LIPR, GLYHGB ####[address] [phone] Director: Placido Pierce MD#### CP ####[facility] Ofj[address] [place] [phone] Director: Emily George MD#### INSU ####[address] [address] Lab Director: Placido Pierce [facility] Jmk[address] [place] [address] Lab Director: SHER Mirzaollection Info.FASTINGNormalOhiohealth Arthur G.H. Bing, Md, Cancer CenterCommunson medical center on above:Performed By: #### LIPR, GLYHGB ####[facility] Toljkabkjfnd2176 [place], [place] [phone] Director: Placido Pierce MD#### CP ####[facility] Tvd[address] [place] [address] [phone] Director: Emily George MD#### INSU ####[address] [place] [address] Lab Director: Placido Pierce, [facility] Uwa[address] [place], [place] [phone] lab Director: Emily George MDInsulin, Totalon 38-30-4616Htvikgu23.0 mU/LBon Pike Community HospitalInsulin CommentFASTRiverside Health SystemInsulin Reference Range:Buchanan General HospitalComment on above:Fastin.6-24.9 30 min: 20-112 60 min: 29-88 90 min: 26-84 120 min: 22-79 Lipid Panelon 89-06-8247Ajyhjccboxp [Mass/Vol]158 mg/dL0 - 199 mg/dLBon Pike Community HospitalComment on above: Cholesterol Guidelines: <200 Desirable 200-240 Borderline >240 Undesirable Cholesterol in HDL [Mass/Vol]31 mg/dLLow40 - PINF mg/dLBCentra Lynchburg General Hospital Comment on above: HDL Guidelines: <40 Undesirable 40-59 Borderline >59 Desirable Cholesterol in LDL [Mass/Vol]59 mg/dL0 - 100 mg/dLBCentra Lynchburg General Hospital Comment on above: LDL Guidelines: <100 Desirable 100-129 Near to/above Desirable 130-159 Borderline >159 Undesirable Direct (measured) LDL and calculated LDL are not interchangeable tests. Cholesterol in VLDL [Mass/Vol]68 mg/dLHigh1 - 30 mg/dLBon [facility] Cholesterol.total/Cholesterol in HDL [Mass ratio]5.1 {ratio}HighNINF - 5.0Buchanan General HospitalInterpretation and review of laboratory resultsAbnormalBuchanan General HospitalTriglyceride [Mass/Vol]341 mg/dLHighNINF - 150 mg/dLBon Pike Community HospitalComment on above: Triglyceride Guidelines: <150 Desirable 150-199 Borderline 200-499 High >499 Very high Based on AHA Guidelines for fasting triglyceride, July 2012. Lipid Profileon 98-16-5057Wqgvzastqpq [Mass/Vol]158 mg/dLNormal0-199Ohiohealth Arthur G.[facility]. Bing, Md, Cancer CenterComment on above:Result Comment: Cholesterol Guidelines: <200 Desirable 200-240 Borderline >240 UndesirablePerformed By: #### LIPR, GLYHGB ####[facility] Zoomnxdkxbow5083 [place], [place] [phone] Director: Placido Pierce MD#### CP ####[facility] Lgu[address] [place], [place] [phone] Director: Emily George MD#### INSU ####[address] [phone] Director: Placido Pierce, [facility] Ykg0885 [place] [address] Lab Director: Emily George MDCholesterol in HDL [Mass/Vol]31 mg/dLLow>40MerSUNY Downstate Medical CenterComment on above:Result Comment: HDL Guidelines: <40 Undesirable 40-59 Borderline >59 DesirablePerformed By: #### LIPR, GLYHGB ####[address] [phone] Director: Placido Pierce MD#### CP ####[facility] Bmi[address] [place] [phone] Director: Emily George MD#### INSU ####[address] [phone] Director: Placido Pierce, [facility] Xze[address] [place], [place] [address])[phone] Director: SHER Mirzaholesterol in LDL [Mass/Vol]59 mg/dLNormal0-100Madison Healthment on above:Result Comment: LDL Guidelines: <100 Desirable 100-129 Near to/above Desirable 130-159 Borderline >159 Undesirable Direct (measured) LDL and calculated LDL are not interchangeable tests.Performed By: #### LIPR, GLYHGB ####[facility] Systemy Gorpiyaekszk2262 [place], [place] [phone] Director: Placido Pierce MD#### CP ####[facility] Fzz8292 [place] [address] Lab Director: Emily George MD#### INSU ####[facility] [place] [address] Lab Director: Placido Pierce, [facility] Bmp[address]19 [place] [address] Lab Director: Emily George MD Cholesterol in VLDL [Mass/Vol]68 mg/dLHigh1-30Ohio[facility]. [facility], Md, Cancer CenterComment on above:Performed By: #### LIPR, GLYHGB ####[facility] Cdegbevszfvt9197 [place] [address] Lab Director: Placido Pierce MD#### CP ####[facility] Exz4706 [place] [phone] Director: Emily George MD#### INSU ####[facility] [place] [address] Lab Director: Placido Pierce, [facility] Uov3753 [place] [address] Lab Director: Oliverio Mirzasteromatthew.total/Cholesterol in HDL [Mass ratio]5.1 {ratio} High<5.0Ohio[facility] Arthur G.[facility]. Bing, Md, Cancer CenterComment on above:Performed By: #### LIPR, GLYHGB ####[facility] Ikicxyplhhvf0122 [place] [address] Lab Director: Placido Pierce MD#### CP ####[facility] Cya3939 [place] [address] Lab Director: Emily George MD#### INSU ####[facility] [place] [address] Lab Director: Placido Pierce, [facility] Tkf[address]166 [place] [address] Lab Director: Emily George MDTriglyceride [Mass/Vol]341 mg/dL High<150Ohiohealth Arthur G.H. Bing, Md, Cancer CenterComment on above:Result Comment: Triglyceride Guidelines: <150 Desirable 150-199 Borderline 200-499 High >499 Very high Based on AHA Guidelines for fasting triglyceride, July 2012.Performed By: #### LIPR, GLYHGB ####[facility] Updisqlofgxn2[address] [place], [place] 0252708 Lab Director: Placido Pierce MD#### CP ####[facility] Rfg3698 [place] [address] Lab Director: Emily George MD#### INSU ####[facility] [place] [address] Lab Director: Placido Pierce [facility] Rtb2635 [place] [address] Lab Director: Emily George MD No Panel Informationon 89-45-1729Lyj [facility] Foot - right WO and [...] superimposed infection be difficult to include. Bon [facility] Foot - right WO and W contrast IVOrdered By: Robin Mcarthur on 49-35-0914Lhx [facility] Work Phone: MRI FOOT RIGHT W WO CONTRASTon [id number]: MRI FOOT RIGHT W WO CONTRAST COMPARISON: [...] by: Robin Mcarthur MD 04/12/25 Final result [facility] FOOT RIGHT W WO CONTRASTEXAM: MRI [...] Signed by: Robin Mcarthur MD 04/12/[address] Rita's Medical CenterRadiology Study observation (narrative) [facility] HospitalI FO[facility] RIGHT W WO CONTRASTOrdered By: Radiologist Radiology on [id number] Genevieve County Memorial Hospital Work Phone: bUN & Creatinineon 39-95-0245Hmmeequtui [Mass/Vol]1.3 mg/dLHigh0.5 - 0.9 mg/dLBon [facility]ike Community HospitalSariah Hahn Vedy69Lve- PINF [facility] General HospitalComment on above: These results are not [...] tubular secretion. Interpretation and review of laboratory resultsAbnormalBuchanan General Hospital Urea nitrogen [Mass/Vol]15 mg/dL6 - 20 mg/dLBon [facility] C[facility] Johnson Veterans Memorial HospitalBUN + Creatinineon 14-50-8270Uzxvernfrq [Mass/Vol]1.3 mg/dLHigh 0.5-0.9Madison Healthment on above:Performed By: #### BUNCRT ####[facility] Zhy0430 [place] [phone] Director: Emily George MDGFR/1.73 sq M.predicted among non-blacks MDRD (S/P/Bld) [Vol rate/Area]52 mL/min/{1.73_m2}Low>60Ohio[facility] Arthur [facility]. Bing, Md, Cancer CenterComment on above:Result Comment: These results are [...] affects renal tubular secretion.Performed By: #### BUNCRT ####[place] [id number] lab Director: Emily George MDUrea nitrogen [Mass/Vol]15 mg/dLNoal6-20[facility]. Bing, Md, Cancer CenterComment on above:Performed By: #### BUNCRT ####[facility] [address] [place] [address] lab Director: ELISABET MirzaT BUN + CREATININEon 58-61-5861Bozuctvswi [Mass/Vol]1.3 mg/dLHigh0.5 - 0.9 mg/dLSAN JUAN HOSPITAL HealthcareInterpretation and review of laboratory resultsAbnoEndless Mountains Health SystemsMHPT ENFI49Kva- PINFSainte Genevieve County Memorial HospitalComment on above: These results [...] secretion. Urea nitrogen [Mass/Vol]15 mg/dL6 - 20 mg/dLSainte Genevieve County Memorial HospitalOriginal Ordering Provider: ROBBIN DENTONS[facility] Foot - right WO and W contrast Chay [id number] Study observation (narrative)Sid [facility] HospitalXR Foot - right 2 Viewson [id number] Result: XRAY RIGHT FOOT: AP/OBL- No fx. Lis franc diastasis concern with deformity. DP 2 mild cortical disruption 1-2mm possible. No bone density changesFormerly [facility], [facility] Cult,Woundon [id number],WoundSpecimen Description .TOE Direct Exam NO NEUTROPHILS SEEN [...] <=1 SUSCEPTIBLE Trimethoprim/Sulfa <=10 SUSCEPTIBLE Vancomycin 1 SUSCEPTIBLESusceptibleOhiohealth Arthur G.H. Bing, Md, Cancer CenterComment on above: Performed By: #### MORPHX, CRP, BMP, CBC, SED #### [facility] Lab [address] [place], [place] 0558090 Alumni Relations Coordinator: ARPAN Mirza Foot - right 2 Viewson [id number] Study observation (narrative)[facility] Natri. Peptideon 04-04-2025 Natriuretic peptide B (Bld) [Mass/Vol]262 pg/mLNormal<300[facility] Comment on above:Result Comment: An age-independent cutoff point of 300 pg/ml has a 98% negative predictive value excluding acute heart failure.Performed By: #### BNP, SED, CRP ####[facility] Kbq[address] [place], [place] [phone] Lab Director: Jessica Mirza Natriuretic Peptideon 50-51-7847Qtkpwnshgfw peptide B (Bld) [Mass/Vol]262 pg/mLNINF - 300 pg/mLBon [facility]ike Community HospitalComment on above:An age-independent cutoff point of 300 pg/ml has a 98% negative predictive value excluding acute heart failure. C-Reactive Proteinon [id number] High sensitivity method [Mass/Vol]46.7 mg/L High0.0 - 5.0 mg/LBon Pike Community HospitalInterpretation and review of laboratory resultsAbnormalBuchanan General HospitalCRP [Mass/Vol]46.7 mg/LHigh 0.0-5.0Ohio[facility], Md, Cancer CenterComment on above:Performed By: #### BNP, SED, CRP ####[facility] R[address] [facility] HospitalwilianSWANSBORO, [place] [phone] Director: Emily George [facility] with Auto Differentialon 04-04-2025 Basophils (Bld) [#/Vol]0.02 10*3/uLBon Secours Mercer County Community HospitalBasophils/100 WBC (Bld)0 %0 - 2 %B[facility]anan General HospitalEosinophils (Bld) [#/Vol]0.07 10*3/uLBon Secours Mercer County Community HospitalEosinophils/100 WBC (Bld)1 %0 - 5 %[facility] Erythrocyte distribution width (RBC) [Ratio]18.4 %High12.1 - 15.2 %B[facility]anan General HospitalHematocrit (Bld) [Volume fraction]30 %Low36.0 - 46.0 %[facility] General HospitalHemoglobin (Bld) [Mass/Vol]9.6 g/dLLow12.0 - 16.0 g/dLBon SecShelby Memorial HospitalImmature granulocytes (Bld) [#/Vol]0.13 10*3/uLBon SecShelby Memorial HospitalImmature granulocytes/100 WBC (Bld)2 %0 - 5 %[facility] Interpretation and review of laboratory resultsAbnormalBuchanan General Hospital Lymphocytes/100 WBC (Bld)23 %15 - 40 %Bon SecShelby Memorial HospitalLymphocytes/100 WBC (Bld)1.39 %Bon SecLicking Memorial HospitalH (RBC) [Entitic mass]27 pg26.0 - 34.0 pgBon SecLicking Memorial HospitalHC (RBC) [Mass/Vol]32 g/dL31.0 - 37.0 g/dLBon Secours Trumbull Regional Medical CenterV (RBC) [Entitic vol]84.3 fL80.0 - 100.0 fLBuchanan General HospitalMonocytes/100 WBC (Bld)6 %4 - 8 %[facility] Monocytes/100 WBC (Bld)0.37 %B[facility] General HospitalNeutrophils/100 WBC (Bld)68 %47 - 75 %B[facility]anan General HospitalPlatelet mean volume (Bld) [Entitic vol]11.7 fL6.0 - 12.0 fLBuchanan General HospitalPlatelets (Bld) [#/Vol]186 10*3/uLBon Pike Community HospitalRBC (Bld) [#/Vol]3.56 10*6/uLLow4.00 - 5.20 m/uLBuchanan General HospitalSegmented neutrophils/100 WBC (Bld)4.09 %B[facility]anan General HospitalWBC other (Bld) [#/Vol]6.1Bon [facility] HospitalCBC with Diffon 41-37-6418Tkl. Basophil0.02 k/uLNormal0.00-0.20[facility] Comment on above:Performed By: #### CDP ####[facility] Wax[address]21 [place] [address] Lab Director: Emily George MD Abs.Imm.Granulocyte0.13 k/uLNormal0.00-0.30Ohio[facility]. Bing, Md, Cancer CenterComment on above:Performed By: #### CDP ####[facility] Zgn4842 [place] [address] Lab Director: Emily George MDAbs.Neutrophil (Seg)4.09 k/uLNormal2.5-7.0[facility]. [facility], Md, Cancer CenterComment on above:Performed By: #### CDP ####[facility] Uak8435 [place] [address] Lab Director: Emily George MDBasophils/100 WBC (Bld)0 %Normal 0-2[facility] General HospitalComment on above:Performed By: #### CDP ####[facility] [address]xp[address] [place] [address] Lab Director: Emily George MDEosinophils (Bld) [#/Vol]0.07 10*3/uLNormal0.00-0.40 [facility] Md, Cancer CenterComment on above:Performed By: #### CDP ####[facility] Koj1888 [facility] [place] [address] Lab Director: Emily George MDEosinophils/100 WBC (Bld)1 %Normal0-[address] [place] [address] Comment on above:Performed By: #### CDP ####[facility] Akk9702 [place] [address] Lab Director: Emily George MD Erythrocyte distribution width (RBC) [Ratio]18.4 %High12.1-15.2MKindred Hospital LimaComment on above:Performed By: #### CDP ####[facility] Irq9421 [place] [address] Lab Director: Emily George MDHematocrit (Bld) [Volume fraction]30.0 %Low36.0-46.0[facility], Md, Cancer CenterComment on above:Performed By: #### CDP ####[facility] Nxc[address] [place] [address] Lab Director: Emily George MDHemoglobin (Bld) [Mass/Vol]9.6 g/dLLow12.0-16.0[facility] Comment on above:Performed By: #### CDP ####[facility] Jdu9903 [place] [address] Lab Director: Emily George MD Immature granulocytes/100 WBC (Bld)2 %Normal0-5Ohio[facility]. [facility], Md, Cancer CenterComment on above:Performed By: #### CDP ####[facility] Zux[address] [place] [address] Lab Director: Leelee Mirzamphocytminh (Bld) [#/Vol]1.39 10*3/uLNormal1.00-4.80Ohio[facility], Md, Cancer CenterComment on above: Performed By: #### CDP ####[facility] Leb[address] [place] [address] Lab Director: Shanelle Mirzahocytes/100 WBC (Bld)23 %Ooqvdp83-77JlnalOhiohealth Arthur G.H. Bing, Md, Cancer CenterComment on above:Performed By: #### CDP ####[facility] Cwm3281 [place] [address] Lab Director: ELISABET MirzaCH (RBC) [Entitic mass]27.0 pg Wzscqq34.0-34.0[facility]. [facility], Md, Cancer CenterComment on above:Performed By: #### CDP ####[facility] Tvi[address] [place] [phone] Director: ELISABET MirzaCHC (RBC) [Mass/Vol]32.0 g/sOKlepvz72.0-37.0 [facility] Md, Cancer CenterComment on above:Performed By: #### CDP ####[facility] Xnf[address] [place] 8[address]2390 Lab Director: ELISABET MirzaCV (RBC) [Entitic vol]84.3 dQGsnokh68.0-100.0[facility], Md, Cancer CenterComment on above:Performed By: #### CDP ####[facility] Ljx[address] [place] [address] Lab Director: ELISABET Mirzaonocytes (Bld) [#/Vol]0.37 10*3/uLNormal0.00-1.00[facility], Md, Cancer CenterComment on above:Performed By: #### CDP ####[facility] Avi[address] [place] [address] Lab Director: ELISABET Mirzaonocytes/100 WBC (Bld)6 %Normal4-8[facility]. [facility], Md, Cancer CenterComment on above:Performed By: #### CDP ####[facility] Mgr[address] [place] [address] Lab Director: Vincent Mirzautrophil (Seg) 68 %Pvpkii26-35PovhbOhiohealth Arthur G.H. Bing, Md, Cancer CenterComment on above:Performed By: #### CDP ####[facility] Nju[address] [place] [phone] Director: Haja Mirza mean volume (Bld) [Entitic vol]11.7 fLNormal6.0-12.0[facility], Md, Cancer CenterComment on above:Performed By: #### CDP ####[facility] Sbv6030 [place] [phone] Director: Terrence Mirza (Bld) [#/Vol]186 10*3/uLNormal 140-450Ohio[facility] Arthur [facility]. [facility], Md, Cancer CenterComment on above:Performed By: #### CDP ####[facility] Kik[address] [facility] [place] [phone] Director: LASHAY MirzaBC (Bld) [#/Vol]3.56 10*6/uLLow4.00-5.20[facility] Md, Cancer CenterComment on above:Performed By: #### CDP ####[facility] Sun[address] [place] [address] Lab Director: LLOYD Mirza (Bld) [#/Vol]6.1 10*3/uLNormal3.5-11.0[facility] on above:Performed By: #### CDP ####[facility] T[address] [place] [address] lab Director: Emily George MD No Panel Informationon 04-04-2025 No acute osseous injury. Soft tissue swelling of the left great toe on the right second toe without radiographic evidence of osteomyelitis. Postsurgical changes partially imaged on the left. [facility] CONSOLIDATEDEXAM: XR TOE LEFT (MIN 2 [...] blastic bony lesions. There is normal mineralization. [facility] Daksha Bourne MD - 04/04/2025 EXAM: [...] changes partially imaged on the left. [facility] HospitalNo Panel InformationOrdered By: Daksha Hannah on [id number] [facility] Work Phone: sedimentation Rateon [id number] Photometric method (Bld) [Velocity]32[facility] DePaul Medical CenterInterpretation and review of laboratory resultsAbnormalInova Children's Hospital Sedimentation Rate32 mm/HrCamden Clark Medical Center061 Brown StreetComment on above: Performed By: #### BNP, SED, CRP ####[facility] Ucp[address] [place] [address] lab Director: LIONEL MirzaR TOE LEFT (MIN 2 VIEWS)on [id number] TOE LEFT (MIN 2 VIEWS)EXAM: XR TOE [...] Signed by: Daksha Hannah MD 04/04/25 Final resultNoCleveland Clinic Union HospitalXR TOE RIGHT (MIN 2 [...] Signed by: Daksha Hannah MD 04/04/25 Final resultNormalOhiohealth Arthur G.H. Bing, Md, Cancer CenterXR Toes - left 2 Viewson 04-04-2025 Radiology Study observation (narrative)Sid [facility] HospitalXR Toes - right 2 Viewson 04-25-3106Sqcpdduld Study observation (narrative)Sid [facility]lynnette [facility] BRIAN DIGITAL SCREEN BILATERALon [id number] BRIAN DIGITAL SCREEN BILATERALHISTORY: Screening. TECHNIQUE: Bilateral [...] to the patient. Performing Facility: [facility] [address] [id number] Interpreted by: Micky Lauren Jr., MD Signed by: Micky Lauren Jr., MD 02/28/25 Final resultNormalOhiohealth Arthur G.H. Bing, Md, Cancer CenterComp Metabolic Profon [id number] [Mass/Vol]3.8 g/dLNormal3.5-5.2MercSaint Francis Medical CenterComment on above:Performed By: #### LIPR, LDLDIR, GLYHGB #### [facility] [employer] [address] [place] [address] Alumni Relations Coordinator: Placido Pierce MD #### CP #### [facility] [address] [place] [address] Alumni Relations Coordinator: Manish Mirza Lswh618 /[id number] King StreetComment on above:Performed By: #### LIPR, LDLDIR, GLYHGB #### [facility] [employer] [address] [place] [address] [id number] Alumni Relations Coordinator: Placido Pierce MD #### CP #### [facility] [address] [place], [place] [id number] Alumni Relations Coordinator: RAMA Mirza [Catalytic activity/Vol]11 U/LNormal5-33[facility] on above:Performed By: #### LIPR, LDLDIR, GLYHGB #### [address] [id number] Alumni Relations Coordinator: Placido Pierce MD #### CP #### [facility] [address] [place], [place] [id number] Alumni Relations Coordinator: Myles Mirza gap [Moles/Vol]12 mmol/LNormal9-17Ohiohealth Arthur G.H. Bing, Md, Cancer CenterComment on above:Performed By: #### LIPR, LDLDIR, GLYHGB #### [address] [id number] Alumni Relations Coordinator: Placido Pierce MD #### CP #### [facility] [address] [place], [place] [id number] Alumni Relations Coordinator: YADY Mirza [Catalytic activity/Vol]14 U/LNormal<32Ohiohealth Arthur G.H. Bing, Md, Cancer CenterCommunson medical center on above:Performed By: #### LIPR, LDLDIR, GLYHGB #### [address] [id number] Alumni Relations Coordinator: Placido Pierce MD #### CP #### [facility] [address] [place], [place] [id number] Alumni Relations Coordinator: Emily George MDBilirubin [Mass/Vol]0.4 mg/dLNormal0.3-1.2MKindred Hospital LimaCommunson medical center on above:Performed By: #### LIPR, LDLDIR, GLYHGB #### [address] [id number] Alumni Relations Coordinator: Placido Pierce MD #### CP #### [facility] [address] [place], [place] 7283190 Alumni Relations Coordinator: Emily George MDBUN/CRE [id number] [facility] Comment on above:Performed By: #### LIPR, LDLDIR, GLYHGB #### [address] [address] Alumni Relations Coordinator: Placido Pierce MD #### CP #### [facility] [address] [place], [place] [id number] Alumni Relations Coordinator: SHER Mirzaalcium [Mass/Vol]9.3 mg/dLNormal8.6-10.4Ohiohealth Arthur G.H. Bing, Md, Cancer CenterComment on above:Performed By: #### LIPR, LDLDIR, GLYHGB #### [address] [id number] Alumni Relations Coordinator: Placido Pierce MD #### CP #### [facility] [address] [place], [place] [phone] Alumni Relations Coordinator: SHER Mirzahloride [Moles/Vol]102 mmol/OHvmrxb78-810OmzysOhiohealth Arthur G.H. Bing, Md, Cancer CenterComment on above:Performed By: #### LIPR, LDLDIR, GLYHGB #### [address] [address] Alumni Relations Coordinator: Placido Pierce MD #### CP #### [facility] [address] [place], [place] 1202490 Alumni Relations Coordinator: SHER MirzaO2 [Moles/Vol]25 mmol/MKmcpda43-24NbctnOhiohealth Arthur G.H. Bing, Md, Cancer CenterComment on above:Performed By: #### LIPR, LDLDIR, GLYHGB #### [address] [address] Alumni Relations Coordinator: Placido Pierce MD #### CP #### [facility] [address] [place] [address] Alumni Relations Coordinator: SHER Mirzareatinine [Mass/Vol]1.1 mg/dLHigh0.5-0.9Ohiohealth Arthur G.H. Bing, Md, Cancer CenterComment on above:Performed By: #### LIPR, LDLDIR, GLYHGB #### [address] [id number] Alumni Relations Coordinator: Placido Pierce MD #### CP #### [facility] [address] [place] [address] Alumni Relations Coordinator: Emily George MDGFR/1.73 sq M.predicted among non-blacks MDRD (S/P/Bld) [Vol rate/Area]63 mL/min/{1.73_m2}Normal>60[facility] Comment on above:Result Comment: These results [...] secretion.Performed By: #### LIPR, LDLDIR, GLYHGB #### [address] [phone] Alumni Relations Coordinator: Placido Pierce MD #### CP #### [facility] [address] [place] [address] Alumni Relations Coordinator: Emily George MDGlucose [Mass/Vol]125 mg/lCFgdn66-09TasskKindred Hospital LimaComment on above:Performed By: #### LIPR, LDLDIR, GLYHGB #### [facility] [address] [place], [place] 0001608 Alumni Relations Coordinator: Placido Pierce MD #### CP #### [facility] [address] [place], [place] 5180690 Alumni Relations Coordinator: ANNMARIE Mirzaotassium [Moles/Vol]4.2 mmol/LNormal3.7-5.3MKindred Hospital LimaComment on above:Performed By: #### LIPR, LDLDIR, GLYHGB #### [address] [phone] Alumni Relations Coordinator: Placido Pierce MD #### CP #### [facility] [address] [place], [place] 7744590 Alumni Relations Coordinator: ANNMARIE Mirzarotein [Mass/Vol]7.2 g/dLNormal6.4-8.3MKindred Hospital LimaComment on above:Performed By: #### LIPR, LDLDIR, GLYHGB #### [address] [id number] Alumni Relations Coordinator: Placido Pierce MD #### CP #### [facility] [address] [place], [place] 6505490 Alumni Relations Coordinator: MARIKA Mirzaodium [Moles/Vol]139 mmol/JDsxwga440-237LocezOhiohealth Arthur G.H. Bing, Md, Cancer CenterComment on above:Performed By: #### LIPR, LDLDIR, GLYHGB #### [address] [address] Alumni Relations Coordinator: Placido Pierce MD #### CP #### [facility] [address] [place], [place] 5058390 Alumni Relations Coordinator: Emily George MDUrea nitrogen [Mass/Vol]21 mg/dLHigh6-20Ohiohealth Arthur G.H. Bing, Md, Cancer CenterComment on above:Performed By: #### LIPR, LDLDIR, GLYHGB #### [address] [address] Alumni Relations Coordinator: Placido Pierce MD #### CP #### [facility] [address] [place] [address] Alumni Relations Coordinator: Emily George, [facility] IDABELompuniversity hospitals ahuja medical centerensive Metabolic Panelon [id number] [Mass/Vol]3.8 g/dL3.5 - 5.2 g/dLBon Pike Community HospitalALP [Catalytic activity/Vol]115 U/LHigh35 - 104 U/LBon Pike Community HospitalALT [Catalytic activity/Vol]11 U/L5 - 33 U/LBon Pike Community HospitalAnion gap [Moles/Vol]12 mmol/L9 - 17 mmol/LBon Pike Community HospitalAST [Catalytic activity/Vol]14 U/L NINF - 32 U/LBon Pike Community HospitalBilirubin [Mass/Vol]0.4 mg/dL0.3 - 1.2 mg/dLBon Pike Community HospitalCalcium [Mass/Vol]9.3 mg/dL8.6 - 10.4 mg/dLBon [facility] SunsetLightwaves [facility] Main CampusChloride [Moles/Vol]102 mmol/L98 - 107 mmol/LBon Pike Community HospitalCO2 [Moles/Vol]25 mmol/L20 - 31 mmol/LBon [facility] Creatinine [Mass/Vol]1.1 mg/dLHigh0.5 - 0.9 mg/dLBon [facility] SunsetLightwaves [facility] CampusEst, Glom Filt Rate63- PINFBon Pike Community HospitalComment on above: These results are [...] that affects renal tubular secretion. Glucose [Mass/Vol]125 mg/xKGofq29 - 99 mg/dLBon [facility] SunsetPortable Zoo Interpretation and review of laboratory resultsAbnormalBon [facility] Potassium [Moles/Vol]4.2 mmol/L3.7 - 5.3 mmol/LBon [facility] myGreekProtein [Mass/Vol]7.2 g/dL6.4 - 8.3 g/dLBon Pike Community HospitalSodium [Moles/Vol]139 mmol/L135 - 144 mmol/LBon Pike Community HospitalUrea nitrogen [Mass/Vol]21 mg/dL High6 - 20 mg/dLBon Pike Community HospitalUrea nitrogen/Creatinine [Mass ratio]19 mg/mg9 - 20Bon [facility] HospitalHemoglobin A1Con 27-31-5544Nyakxeg glucose Estimated from glycated hemoglobin (Bld) [Mass/Vol]103 mg/dLBon [facility] on above:The ADA and AACC recommend providing the estimated average glucose result to permit better patient understanding of their HBA1c result. HbA1c (Bld) [Mass fraction]5.2 %4.0 - 6.0 %Bon [facility] HospitalGlucose [Mass/Vol]103 mg/dLNormalAvita Health System Bucyrus Hospital on above:Result Comment: The ADA and AACC recommend providing the estimated average glucose result to permit better patient understanding of their HBA1c result.Performed By: #### LIPR, LDLDIR, GLYHGB #### [address] [id number] Alumni Relations Coordinator: Placido Pierce MD #### CP #### [facility] [address] [place] [address] Alumni Relations Coordinator: Emily Geroge MDHbA1c (Bld) [Mass fraction]5.2 %Normal4.0-6.0[facility] on above:Performed By: #### LIPR, LDLDIR, GLYHGB #### [address] [place], [place] [phone] Alumni Relations Coordinator: Placido Pierce MD #### CP #### [facility] [address] [place] [address] Alumni Relations Coordinator: Emily George MDLDL Chol, Directon 70-80-2899DLP Chol, Wueyii98 mg/dLNormal<100[facility] on above:Performed By: #### LIPR, LDLDIR, GLYHGB ####[facility] [address] Cha[place]er, [place] [phone] Director: Placido Pierce MD#### CP ####[facility] [address] [place] [address] lab Director: Emily George MD LDL Cholesterol, Directon 18-53-0376Ojzdgzxhodx in LDL [Mass/Vol]94 mg/dLNINF - 100 mg/dLBon [facility] TellMi [facility] Medical CenterHalozyme TherapeuticsLipid Panelon 23-43-1856Zyndddwugmu [Mass/Vol]179 mg/dL0 - 199 mg/dLBon [facility])DWNLDAugusta Health Comment on above: Cholesterol Guidelines: <200 Desirable 200-240 Borderline >240 Undesirable Cholesterol in HDL [Mass/Vol]31 mg/dLLow40 - PINF mg/dLBon [facility] [employer] Comment on above: HDL Guidelines: <40 Undesirable 40-59 Borderline >59 Desirable Cholesterol in LDL [Mass/Vol]Can not be calculated0 - 100 mg/dLBon [facility] SunsetLightwaves [facility] Main CampusComment on above: LDL Guidelines: <100 Desirable 100-129 Near to/above Desirable 130-159 Borderline >159 Undesirable Direct (measured) LDL and calculated LDL are not interchangeable tests. Cholesterol in VLDL [Mass/Vol]Can not be calculated1 - 30 mg/dLBon [facility])Halozyme TherapeuticsCholesterol.total/Cholesterol in HDL [Mass ratio]5.8 {ratio}Page Memorial HospitalDWNLD CybronicsInterpretation and review of laboratory resultsAbnormalPage Memorial HospitalDWNLD CybronicsTriglyceride [Mass/Vol]407 mg/dLHighNINF - 150 mg/dLBon [facility] Vets First ChoiceAugusta HealthComment on above: Triglyceride Guidelines: <150 Desirable 150-199 Borderline 200-499 High >499 Very high Based on AHA Guidelines for fasting triglyceride, July 2012. ChumbyLipid Profileon 33-42-3674Vqkqdkavkhg [Mass/Vol]179 mg/dLNormal0-199Ohiohealth Arthur G.H. Bing, Md, Cancer CenterComment on above:Result Comment: Cholesterol Guidelines: <200 Desirable 200-240 Borderline >240 UndesirablePerformed By: #### LIPR, LDLDIR, GLYHGB #### [facility] [address] [place] [address] Alumni Relations Coordinator: Placido Pierce MD #### CP #### [facility] [address] [place] [address] Alumni Relations Coordinator: SHER Mirzaholesterol in HDL [Mass/Vol]31 mg/dLLow>40[facility] on above:Result Comment: HDL Guidelines: <40 Undesirable 40-59 Borderline >59 DesirablePerformed By: #### LIPR, LDLDIR, GLYHGB #### [address] [address] Alumni Relations Coordinator: Placido Pierce MD #### CP #### [facility] [address] [place], [place] [phone] Alumni Relations Coordinator: SHER Mirzaholesterol,LDLCan not be calculatedNormal0-100 [facility] on above:Result Comment: LDL Guidelines: <100 Desirable 100-129 Near to/above Desirable 130-159 Borderline >159 Undesirable Direct (measured) LDL and calculated LDL are not interchangeable tests.Performed By: #### LIPR, LDLDIR, GLYHGB #### [address] [place] [address] Alumni Relations Coordinator: Placido Pierce MD #### CP #### [facility] [address] [place] [address] Alumni Relations Coordinator: SHER Mirzaholesterol,VLDLCan not be calculatedNormal1-30 [facility] on above:Performed By: #### LIPR, LDLDIR, GLYHGB #### [address] [address] Alumni Relations Coordinator: Placido Pierce MD #### CP #### [facility] [address] [place], [place] [id number] Alumni Relations Coordinator: SHER Mirzaholesterol.total/Cholesterol in HDL [Mass ratio] 5.8 {ratio}NormalOhiohealth Arthur G.H. Bing, Md, Cancer CenterComment on above:Performed By: #### LIPR, LDLDIR, GLYHGB #### [facility] [address] [place] [address] Alumni Relations Coordinator: Placido Pierce MD #### CP #### [facility] [address], [place] 0650290 Alumni Relations Coordinator: Emily George MDTriglyceride [Mass/Vol]407 mg/dLHigh<150Ohiohealth Arthur G.H. Bing, Md, Cancer CenterComment on above:Result Comment: Triglyceride Guidelines: <150 Desirable 150-199 Borderline 200-499 High >499 Very high Based on AHA Guidelines for fasting triglyceride, July 2012.Performed By: #### LIPR, LDLDIR, GLYHGB #### [facility] [address] [place] [address] Alumni Relations Coordinator: Placido Pierce MD #### CP #### [facility] [address] [place] [address] Alumni Relations Coordinator: Emily George MDUS THYROIDon [id number] THYROIDEXAM: US THYROID HISTORY: Thyroid nodule COMPARISON: [...] Continued follow-up annually is recommended through 2026. [facility] CONSOLIDATEDEXAM: US THYROID HISTORY: Thyroid nodule [...] 1.7 x 1.3 cm. Isthmus: 0.2 cm [facility] OMARCleveland Clinic South Pointe HospitalMicky espinosa Jr., MD - 09/07/2024 EXAM: [...] Continued follow-up annually is recommended through 2026. [facility] Thyroid glandOrdered By: Micky Lauren on 09-07-2024 [facility] Work Phone: us Thyroid glandon [id number] Study observation (narrative)ChumbyMagnesiumon 05-03-7191Rccnjbulu [Mass/Vol]2.2 mg/dL1.6 - 2.6 mg/dLBON SECSmith & AssociatesNo Panel Informationon [id number] SECKipo [facility] MEDICAL CENTERProtein / creatinine ratio, urineon 99-30-7322Wntguhdyko (U) [Mass/Vol]132.0 mg/dL28.0 - 217.0 mg/dLBON DIGN[facility] HE[facility] ARI[facility] SPECIALTY HOSPITALKipo HEALTHProtein (U) [Mass/Vol]9 mg/dLBON DIGN[facility] SPECIALTY HOSPITALKipo [facility] MEDICAL CENTERComment on above:No normal range established.Urine Total Protein Creatinine Ratio0.07BON [facility] Medina MedicalSUMMA HEALTH WADSWORTH - RITTMAN MEDICAL CENTERRenal Function Panelon 05-10-2024 Albumin [Mass/Vol]4.2 g/dL3.5 - 5.2 g/dLBON [facility]CLA[facility] FatSkunkAnion gap [Moles/Vol]15 mmol/L9 - 17 mmol/LBON [facility]MIMBRES MEMORIAL [facility] Hortor [facility] MEDICAL CENTERCalcium [Mass/Vol]9.2 mg/dL8.6 - 10.4 mg/dLBON [facility] Hortor HEALTHChloride [Moles/Vol]101 mmol/L98 - 107 mmol/LBON [facility] Hortor HEALTHCO2 [Moles/Vol]25 mmol/L20 - 31 mmol/LBON [facility] Medina MedicalSUMMA HEALTH WADSWORTH - RITTMAN MEDICAL CENTERCreatinine [Mass/Vol]1.3 mg/dLHigh0.5 - 0.9 mg/dLBON DIGN[facility] SPECIALTY HOSPITALSmith & AssociatesEst, Glom Filt Wcbw36Vtg- PINFBON DIGNITY HEALTH ARIZONA SPECIALTY HOSPITALKipo [facility] MEDICAL CENTERComment on above: These results are [...] that affects renal tubular secretion. Glucose [Mass/Vol]141 mg/tWIrlm73 - 99 mg/dLBON Soysuper Interpretation and review of laboratory resultsAbnormalBON D[facility] SPECIALTY HOSPITALSmith & Associates Phosphate [Mass/Vol]3.8 mg/dL2.6 - 4.5 mg/dLBON D[facility] SPECIALTY HOSPITALSmith & AssociatesPotassium [Moles/Vol]4.0 mmol/L3.7 - 5.3 mmol/LBON DIGN[facility] SPECIALTY HOSPITALKipo HEALTHSodium [Moles/Vol] 141 mmol/L135 - 144 mmol/LBON [facility] HEALTHUrea nitrogen [Mass/Vol]19 mg/dL6 - 20 mg/dLBON [facility]ALTH CENTERY HEALTHUrea nitrogen/Creatinine [Mass ratio]15 mg/mg9 - 20BON [facility]CLAKE [facility] HEALTHUrinalysison 12-41-5052Cnzmvntmv Ql (U) NegativeNEGATIVEBON [facility] HEALTHClarity (U)ClearClearBON [facility] HEALTHColor (U)YellowYellowBON SECCHILLICOTHE HOSPITALCommentBON [facility] HEALTHGlucose Test strip (U) [Mass/Vol]NegativeNEGATIVE mg/dLBON SECCHILLICOTHE HOSPITALHemoglobin Auto test strip Ql (U)NegativeNEGATIVEBON [facility] HEALTH Interpretation and review of laboratory resultsAbnormalBON [facility] Ketones (U) [Mass/Vol]NegativeNEGATIVE mg/dLBON SECCHILLICOTHE HOSPITALLeukocyte esterase Test strip Ql (U)NegativeNEGATIVEBON [facility] HEALTHNitrite Ql (U) NegativeNEGATIVEBON [facility] HEALTHpH (U)5.0 [pH]5.0 - 8.0BON [facility] HEALTHProtein (U) [Mass/Vol]TRACEAbnormalNEGATIVE mg/dLBON [facility]CLA[facility] HEALTH Specific gravity (U) [Rel density]1.0201.005 - 1.030BON [facility] Urobilinogen Qn (U)Normal0.0 - 1.0 EU/dLBON SECAGNESIAN HEALTHCARELon 98-65-0628PBzpdzaoo: [id number] Received: 02/16/24 Status: ARLEN So Num: [id number] Spec Type: Surgical Subm Dr: Frances Harris DPM, MS Tissues: A Soft Tissue/Surgical Margin-Other than Tumor,Mass,Lip or Becka (LT MID FOOT CH Procedures: HE/2, Gross/Micro L4 Age/ Patient Sex Location Account Attending Physician Celina Gaspar 43/F [place] [id number] Frances Harris DPM, MS SPEC NUM: [id number] RECD: 02/16/24 STATUS: ARLEN SO NUM: [id number] MAYTE: 02/15/24-[address]: Frances Harris,INDER, MS ENTERED: 02/16/[address] [facility] [address]: Ursula,Darwin SPEC TYPE: Surgical DEPT: [...] sections reveal firm, yellow spongy bone matrix. 1[address] [place] sections are submitted following decalcification in A1?A2. Clinical history: varus deformity left ankle, charcot join left ankle and foot. CPT Codes 56062 Specimen: [id number] Received: 02/16/24 Status: ARLEN So Num: [id number] Spec Type: Surgical Subm Dr: Frances Harris DPM, MS Tissues: A Soft Tissue/Surgical Margin-Other than Tumor,Mass,Lip or Becka (LT MID FOOT CH Procedures: HE/2, Gross/Micro L4 Patient: Celina Gaspar [id number] (Continued) Signed (signature on file) Juan José Yu MD 02/17/[address] [place] [address] Physician GroupLipid Panelon 06-15-2023 Cholesterol [Mass/Vol]174 mg/dLNINF - 200 mg/dLBON SoysuperComment on above: Cholesterol Guidelines: <200 Desirable 200-240 Borderline >240 Undesirable Cholesterol in HDL [Mass/Vol]30 mg/dLLow40 - PINF mg/dLBON Soysuper Comment on above: HDL Guidelines: <40 Undesirable 40-59 Borderline >59 Desirable Cholesterol in LDL [Mass/Vol]77 mg/dL0 - 130 mg/dLBON Soysuper Comment on above: LDL Guidelines: <100 Desirable 100-129 Near to/above Desirable 130-159 Borderline >159 Undesirable Direct (measured) LDL and calculated LDL are not interchangeable tests. Cholesterol.total/Cholesterol in HDL [Mass ratio]5.8 {ratio}HighNINF - 5BON SoysuperInterpretation and review of laboratory resultsAbnormalBON SoysuperTriglyceride [Mass/Vol]334 mg/dLHighNINF - 150 mg/dLBON SoysuperComment on above: Triglyceride Guidelines: <150 Desirable 150-199 Borderline 200-499 High >499 Very high Based on AHA Guidelines for fasting triglyceride, July 2012. BON SoysuperBUN & Creatinineon 22-62-5011Qkuwxdmrtx [Mass/Vol]1.08 mg/dLHigh0.50 - 0.90 mg/dLBON [facility] OHIOGFR/1.73 sq M.predicted MDRD (S/P/Bld) [Vol rate/Area]- PINFBON [facility] OHIOComment on above: These results are not intended [...] Urea nitrogen [Mass/Vol]21 mg/dLHigh6 - 20 mg/dLBON [facility] OHIOCBC with Auto Differentialon 41-26-0695Ycyccmgl Eos #0.10BON [facility] Absolute Lymph #1.70BON [facility] OHIOAbsolute Caddo #0.50BON [facility] OHIOBasophils (Bld) [#/Vol]0.00 10*3/uLBON SECCHILLICOTHE HOSPITALBasophils/100 WBC (Bld)1 %0 - 2 %BON [facility] OHIODifferential TypeYESBON [facility] OHIOEosinophils/100 WBC (Bld)1 %0 - 5 %BON [facility] OHIOHematocrit (Bld) [Volume fraction]36.2 %36 - 46 %BON [facility] OHIOHemoglobin (Bld) [Mass/Vol]12.2 g/dL12.0 - 16.0 g/dLBON [facility] OHIOInterpretation and review of laboratory resultsAbnormalBON SECCHILLICOTHE HOSPITALLymphocytes/100 WBC (Bld)23 %15 - 40 %BON [facility] MEDICAL CENTERH (RBC) [Entitic mass]28.7 pg26 - 34 pgBON SECHIGHLAND DISTRICT HOSPITALHC (RBC) [Mass/Vol]33.7 g/dL31 - 37 g/dLBON [facility] REGIONAL MEDICAL CENTERV (RBC) [Entitic vol]85.3 fL80 - 100 fLBON [facility] Monocytes/100 WBC (Bld)7 %4 - 8 %BON [facility] CENTERY HEALTHPlatelet distribution width (Bld) [Ratio]18.1 %High12.1 - 15.2 %BON [facility] HEALTHPlatelets (Bld) [#/Vol]150 10*3/uLBON [facility] CENTERY HEALTHRBC (Bld) [#/Vol]4.25 10*6/uL4.0 - 5.2 m/uLBON [facility]ENTERY HEALTHSegmented neutrophils/100 WBC (Bld)68 %47 - 75 %B[facility] HEALTHSegs Absolute5.30B[facility] HEALTHWBC (Bld) [#/Vol]7.6 10*3/uLBON [facility]ENTERY HEALTHBON [facility] HEALTHChlorideon 97-25-1160Cmunenrw [Moles/Vol]99 mmol/L98 - 107 mmol/LBON [facility] FatSkunk Glucose, Randomon 28-50-6566Fvsksrf [Mass/Vol]107 mg/cINaqe83 - 99 mg/dLBON [facility]CLAKE [facility] HEALTHNo Panel Informationon [id number] and review of laboratory resultsAbnormalBON [facility]ERY HEALTHB[facility] HEALTH Potassiumon 40-35-0751Xpevmawgu [Moles/Vol]4.6 mmol/L3.7 - 5.3 mmol/LBON SECST. MICHAELS MEDICAL CENTERY HEALTHSodiumon 41-01-6628Xaoimh [Moles/Vol]134 mmol/AGzh178 - 144 mmol/L [facility] SECST. MICHAELS MEDICAL CENTERSilke HEALTHWet Prep, Genitalon 68-04-5689Iltehvcgccnczd and review of laboratory resultsAbnormalBON [facility] HEALTHMicroorganism or agent identified Nom (Unsp spec)FEW WBCAbnormalB[facility] HEALTHMicroorganism or agent identified Nom (Unsp spec)MODERATE EPITHELIAL CELLSAbnormalBON [facility]ERY HEALTHMicroorganism or agent identified Nom (Unsp spec)MODERATE BACTERIA AbnormalBON SECST. MICHAELS MEDICAL CENTERY HEALTHMicroorganism or agent identified Nom (Unsp spec)NO TRICHOMONAS SEENBON [facility] CENTERY HEALTHMicroorganism or agent identified Nom (Unsp spec)NO FUNGAL ELEMENTS SEENBON [facility]CLAKE [facility] HEALTH Microorganism or agent identified Nom (Unsp spec)NO CLUECELL SEENLIFEPOINT HEALTHSpecimen Description.VAGINABON [facility] HEALTHCT FOOT LT WO CONon 02-15-1547CU FOOT LT WO CONEXAMINATION: CT FOOT LT [...] Electronically authenticated by: EMILY PRITCHETT Date: 2023-02-04 20:[address] [place], [place] [address]XR ANKLE LEFT 3+ VIEWS (STANDARD)on [id number] ANKLE LEFT 3+ VIEWS (STANDARD)EXAMINATION: XR ANKLE [...] RODRIGUEZ on ThuJan 06, 2023 6:11:26 [facility] Comment on above:Order Comment: Injury/Trauma or Illness?:Injury/Trauma How long have you had these symptoms (acute/chronic)?:Acute Reason for exam?:left lateral ankle pain History of cancer?: Surgeries, chemotherapy, or radiation?: Type of Exam?:Initial Mechanism of injury?:rolled ankle 4 days agoMRI FOOT LEFT W WO CONTRASTon 06-25-2022 Combined with the accompanying radiographs, 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 [facility] CONSOLIDATEDEXAM: MRI FOOT LEFT W WO [...] osteomyelitis. No nonenhancing abscess pockets are identified. [facility] Mike Yoder MD - 06/25/2022 EXAM: [...] fragmentation of the navicular and cuneiform bones. [employer] Phone: radiology Study observation (narrative)[employer] Phone: MRI FOOT LEFT W WO CONTRASTOrdered By: Mike Villavicencio on [id number] [employer] Phone: XR FOOT LEFT (2 VIEWS)on [id number] is a linear metallic foreign body projecting between the second and third metatarsals. There is also a metallic foreign body within the lower leg. There is fragmentation of the navicular as well as of all 3 cuneiforms. The appearance is consistent with the patient's history of neuropathy. [facility] CONSOLIDATEDEXAM: XR FOOT LEFT (2 VIEWS) HISTORY: M79.5. The patient is a 42-year-old female. Evaluate for foreign body. COMPARISON: None. [facility] Mike Walden MD - 06/25/2022 EXAM: XR [...] consistent with the patient's history of neuropathy. 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 Clinical follow up recommended. Subcentimeter highly suspicious nodule in the right thyroid lobe 7 mm in greatest dimension. This meets criteria for annual follow up for 5 years. It does not meet criteria for FNA. [facility] CONSOLIDATEDEXAM: US HEAD NECK SOFT TISSUE [...] fat without shadowing, suggestive of a lipoma. [facility] Micky Manzanares Jr., MD - 05/27/2022 [...] It does not meet criteria for FNA. [employer] Phone: radiology Study observation (narrative)[employer] Phone: US HEAD NECK SOFT TISSUE THYROIDOrdered By: Micky Lauren on [id number] Summon Phone: Rejection Notificationon 17-05-3294Ntkyklymw below NormalKettering Health HamiltonCommunson medical center on above:Result Comment: Unable to perform testing; no specimen received. To perform testing the specimen will need to be recollected. No specPerformed By: #### REJEC #### [facility] [address] [address] Sbembqhq TestCXURNNormalKettering Health HamiltonCommunson medical center on above: Performed By: #### REJEC #### [facility] [address] [address] VVN Cholesterol, Directon [id number] in LDL [Mass/Vol]84 mg/dL<100BON [facility]uperVAL[facility] SoysuperCBC with Auto Differentialon [id number] Eos #0.10BON SECSmith & AssociatesAbsolute Lymph #1.40BON SoysuperAbsolute Cadd[place] #0.30BON Soysuper Basophils (Bld) [#/Vol]0.00 10*3/uLBON SoysuperBasophils/100 WBC (Bld)1 %0 - 2 %Leapfrog OnlineDifferential TypeYESBON SECSmith & AssociatesEosinophils/100 WBC (Bld)1 %0 - 5 %Leapfrog OnlineHematocrit (Bld) [Volume fraction]35.7 %Low36 - 46 %LIFEPOINT HEALTHHemoglobin (Bld) [Mass/Vol]12.0 g/dL12.0 - 16.0 g/dLBON [facility] OHIOInterpretation and review of laboratory resultsAbnormalBON [facility] OHIOLymphocytes/100 WBC (Bld)25 %15 - 40 %BON [facility]ICAL CENTERH (RBC) [Entitic mass]28.0 pg26 - 34 pgBON SECHIGHLAND DISTRICT HOSPITALHC (RBC) [Mass/Vol]33.7 g/dL31 - 37 g/dLBON SECHIGHLAND DISTRICT HOSPITALV (RBC) [Entitic vol]83.3 fL80 - 100 fLBON [facility] OHIOMonocytes/100 WBC (Bld)5 %4 - 8 %LIFEPOINT HEALTHPlatelet distribution width (Bld) [Ratio]16.4 %High12.1 - 15.2 %[facility] Platelets (Bld) [#/Vol]168 10*3/uLBON [facility]OS[facility] S[facility] OHIORBC (Bld) [#/Vol]4.29 10*6/uL4.0 - 5.2 m/uLBON [facility] OHIOSegmented neutrophils/100 WBC (Bld) 68 %47 - 75 %LIFEPOINT HEALTHSegs Absolute3.90BON [facility] WBC (Bld) [#/Vol]5.7 10*3/uLBON [facility] Comprehensive Metabolic Panelon 20-30-1339Buyiaxs [Mass/Vol]4.2 g/dL3.5 - 5.2 g/dLBON [facility] SPECIAL[facility]OSPITAL - SOUTHEAST OHIOALP (Bld) [Catalytic activity/Vol]88 U/L35 - 104 U/L BON [facility] OHIOALT [Catalytic activity/Vol]29 U/L5 - 33 U/LBON SECCHILLICOTHE HOSPITALAnion gap [Moles/Vol]11 mmol/L9 - 17 mmol/LBON [facility] AST [Catalytic activity/Vol]27 U/L<32BON [facility] OHIOBilirubin [Mass/Vol]0.65 mg/dL0.30 - 1.20 mg/dLBON [facility] MERCY HEALTHCalcium [Mass/Vol] 9.1 mg/dL8.6 - 10.4 mg/dLBON [facility] HEALTHChloride [Moles/Vol]101 mmol/L 98 - 107 mmol/LBON [facility] HEALTHCO2 [Moles/Vol]28 mmol/L20 - 31 mmol/LBON SECCHILLICOTHE HOSPITALCreatinine [Mass/Vol]1.04 mg/dLHigh0.50 - 0.90 mg/dLBON [facility] OHIOFree PSA/Total PSA [Mass fraction]6.8 g/dL6.4 - 8.3 g/dLBON [facility] OHIOGFR >60>60 mL/minBON [facility] OHIOGFR Non- Pqocqbsf30 mL/minLow>60BON [facility] OHIOGFR/1.73 sq M.predicted MDRD (S/P/Bld) [Vol rate/Area]LIFEPOINT HEALTHComment on above:Average GFR for 40-49 years old: 99 mL/min/1.73sq m Chronic Kidney Disease: <60 mL/min/1.73sq m Kidney failure: <15 mL/min/1.73sq m eGFR calculated using average adult body mass. Additional eGFR calculator available at: http://www.Qustodio/multiple_crcl_2011.htm Glucose [Mass/Vol]103 mg/lFCdoo70 - 99 mg/dLBON [facility] Interpretation and review of laboratory resultsAbnormalBON [facility] Potassium [Moles/Vol]3.9 mmol/L3.7 - 5.3 mmol/LBON [facility] OHIOSodium [Moles/Vol]140 mmol/L135 - 144 mmol/LBON [facility] OHIOUrea nitrogen (BldV) [Mass/Vol]13 mg/dL6 - 20 mg/dLBON [facility] OHIOUrea nitrogen/Creatinine (Bld) [Mass ratio]13BON [facility] OHIOHIV Screenon [id number] Ag/AbNon-ReactiveNONREACTIVELIFEPOINT HEALTHComment on above:No laboratory evidence of HIV infection. If acute HIV infection is suspected, consider testing for HIV-1 RNA. [facility] Medina MedicalSUMMA HEALTH WADSWORTH - RITTMAN MEDICAL CENTERLipid Panelon [id number] [Mass/Vol]184 mg/dL <200BON [facility] OHIOCommunson medical center on above: Cholesterol Guidelines: <200 Desirable 200-240 Borderline >240 Undesirable Cholesterol in HDL [Mass/Vol]30 mg/dLLow>40[facility] on above: HDL Guidelines: <40 Undesirable 40-59 Borderline >59 Desirable Cholesterol.total/Cholesterol in HDL [Mass ratio]6.1 {ratio}High<5BON [facility] OHIOInterpretation and review of laboratory resultsAbnormalLIFEPOINT HEALTHLDL Cholesterol0 - 130 mg/dLBON [facility] OHIOCommunson medical center on above:Calculation not valid for Triglyceride value greater than 400 mg/dL. Direct LDL reflexed LDL Guidelines: <100 Desirable 100-129 Near to/above Desirable 130-159 Borderline >159 Undesirable Direct (measured) LDL and calculated LDL are not interchangeable tests. Triglyceride [Mass/Vol]460 mg/dLHigh<150BON [facility] on above: Triglyceride Guidelines: <150 Desirable 150-199 Borderline 200-499 High >499 Very high Based on AHA Guidelines for fasting triglyceride, July 2012. LIFEPOINT HEALTHNo Panel Informationon 01-49-1657LEYSENTARA CAREPLEX HOSPITALTSH with Reflexon 73-04-1947OKJ Qn0.99 m[IU]/LBON [facility] Urinalysis with MicroscopicOrdered By: Lita Weeks on 08-01-2021-[facility] [employer] Work Phone: amorphous, UANOT REPORTEDNoneMegalion community hospital Health Work Phone: bacteria, UARAREAbnormalNoneMegalion community hospital Health Work Phone: bilirubin UrineNegativeNEGATIVESt. John Of God Hospitalcy Health Work Phone: casts UANOT REPORTED/LPFMercy Health Work Phone: color, UAYellowYellowMercy Health Work Phone: crystals, UANOT REPORTEDNone /[facility]ITALMer[facility] Work Phone: epithelial Cells UA2 [...] Work Phone: pH, UA6.0[facility] Work Phone: Arotein, UANegativeNEGATIVEMercy Health Work Phone: DBC, UANOT REPORTEDMercy Health Work Phone: renal Epithelial, UANOT REPORTED0 /HPFMercy Health Work Phone: Npecific Arthur, UA1.020[facility] Work Phone: Trichomonas, UANOT REPORTEDNoneMercy [...] Phone: Vasts UANOT REPORTED/LPFMercy Health Work Phone: Color, UAYellowYellowMercy Health Work Phone: crystals, UANOT REPORTEDNone [...] Observations UANOT REPORTEDNOT REQ.[facility] Work Phone: oH, UA6.0[facility] Work Phone: Frotein, UANegativeNEGATIVEMercy Health Work Phone: VBC, UANOT REPORTEDMercy Health Work Phone: renal Epithelial, UANOT REPORTED0 /HPFMercy Health Work Phone: specific Arthur, UA1.025[facility] Work Phone: Trichomonas, UANOT REPORTEDNoneMercy Health Work Phone: Turbidity UAHazyAbnormalClearMercy Health Work Phone: Urinalysis CommentsSelect Medical Specialty [facility] Work Phone: Urine HgbNegativeNEGATIVESelect [facility] Work Phone: Urobilinogen, UrineNormalNormalSelect [facility] Work Phone: WBC, UA20 TO 500 /HPFMer Health Work Phone: Yeast, UANOT REPORTEDNoneMercy Health Work Phone: [facility] Work Phone: albuminOrdered By: Gregory Forbes on 34-74-2432Dzrdzto [Mass/Vol]4.2 g/dL3.5 - 5.2 g/dLSelect Medical Specialty Hospital [facility] [employer] Work Phone: bUN & CreatinineOrdered By: Gregory Forbes on 80-85-5954Izflrdyqwj [Mass/Vol]1.18 mg/dLHigh0.50 - 0.90 mg/dLSelect Medical Specialty Hospital [facility] [employer] Work Phone: GFR >60>60 mL/minSelect Medical Specialty Hospital [facility] [employer] Work Phone: GFR Non- Maykfydm76 mL/minLow>60[facility] [employer] Work Phone: GFR/1.73 sq M.predicted MDRD (S/P/Bld) [Vol rate/Area] [facility] [employer] Work Phone: comment on above:Average GFR for 40-49 years old: 99 mL/min/1.73sq m Chronic Kidney Disease: <60 mL/min/1.73sq m Kidney failure: <15 mL/min/1.73sq m eGFR calculated using average adult body mass. Additional eGFR calculator available at: http://www.ComparaMejor.com.VitaSensis/multiple_crcl_2012.htm GFR/1.73 sq M.predicted MDRD (S/P/Bld) [Vol rate/Area]NOT REPORTEDSelect Medical Specialty [facility] [employer] Work Phone: Interpretation and review of laboratory results AbnormalSt. John Of God HospitalGenevolve [facility] Work Phone: Urea nitrogen (BldV) [Mass/Vol]19 mg/dL6 - 20 mg/dL [facility] [employer] Phone: calciumOrdered By: Gregory Forbes on 67-19-4478Feeefzf [Mass/Vol]9.2 mg/dL8.6 - 10.4 mg/dLSelect Medical Specialty [facility] [employer] Work Phone: electrolyte PanelOrdered By: Gregory Forbes on 05-42-1595Ckppk gap [Moles/Vol]10 mmol/L9 - 17 mmol/LMercy [employer] Work Phone: chloride [Moles/Vol]103 mmol/L98 - 107 mmol/LMercy [employer] Work Phone: cO2 [Moles/Vol]25 mmol/L20 - 31 mmol/LMercy [employer] Work Phone: potassium [Moles/Vol]4.2 mmol/L3.7 - 5.3 mmol/LMercy [employer] Work Phone: sodium [Moles/Vol]138 mmol/L135 - 144 mmol/LMercy [employer] Work Phone: MagnesiumOrdered By: Gregory Forbes on 05-20-2021 Magnesium [Mass/Vol]2.2 mg/dL1.6 - 2.6 mg/dLSelect Medical Specialty [facility] [employer] Work Phone: No Panel InformationOrdered By: Gregory Forbes on 15-56-6450Iymmw [employer] Phone: phosphorusOrdered By: Gregory Forbes on 05-20-2021 Phosphate [Mass/Vol]3.7 mg/dL2.6 - 4.5 mg/dLSt. John Of God HospitalGenevolve Vision [facility]ostics Work Phone: UrinalysisOrdered By: Gregory Forbes on 05-20-2021 Bilirubin UrineNegativeNEGATIVEMercy Health Work Phone: color, UAYELLOWYELLOWMercy Health Work Phone: Glucose, UrNegativeNEGATIVEMercy Health Work Phone: Interpretation and review of laboratory results AbnormalMercy Health Work Phone: Ketones Ql (U)NegativeNEGATIVEMercy Health Work Phone: leukocyte esterase Test strip Ql (U)NegativeNEGATIVE [facility] Work Phone: Nitrite, UrineNegativeNEGATIVEMercy Health Work Phone: pH, UA5.0[facility] Work Phone: protein, UATRACEAbnormalNEGATIVEMercy Health Work Phone: specific Arthur, UA1.020[facility] Work Phone: Turbidity UACLEARCLEARMercy Health Work Phone: Urinalysis CommentsMercy Health Work Phone: Urine HgbNegativeNEGATIVEMercy Health Work Phone: Urobilinogen, UrineNormalNormalMercy Health Work Phone: [facility] Work Phone: [phone] By: Pattie Hull on 01-22-2021 SARS-CoV-2 (COVID-19) RNA SHARMIN+probe Ql (Unsp spec)[facility] Work Phone: [phone]-TqC-2 (COVID-19) RNA SHARMIN+probe Ql (Unsp spec)Not detectedNot DetectedSelect Medical Specialty [facility] Work Phone: comment on above: The specimen is NEGATIVE for SARS-CoV-2, the novel coronavirus associated with COVID-19. A negative result does not rule out COVID-19. Twin SARS-CoV-2 for use on the Twin FaceRig0/8800 Systems is a real-time RT-PCR test intended [...] this assay. Fact sheet for Healthcare Providers: https://www.Seamless Receipts.gov/media/625547/download Fact sheet for Patients: https://www.Seamless Receipts.gov/media/033212/download METHODOLOGY: RT-PCR Source.[employer] Phone: [phone], PCRon [id number]-CoV-2, RapidNot DetectedNot [employer] Phone: comment on above: Rapid NAAT: The [...] management decisions. Fact sheet for Healthcare Providers: https://www.Seamless Receipts.gov/media/074174/download Fact sheet for Patients: https://www.fda.gov/media/491331/download Methodology: Isothermal Nucleic Acid Amplification Source.[employer] Phone: Otheron [phone]-CoV-2MDayton Osteopathic Hospital Work Phone: cBC Auto Differentialon [id number] (Bld) [#/Vol]0.10 10*3/[facility], KYBasophils/100 WBC (Bld)1 %0 - 2 %[facility], ALDifferential TypeYESMFostoria City Hospital, KYEosinophils (Bld) [#/Vol] 0.10 10*3/[facility], KYEosinophils/100 WBC (Bld)1 %0 - 5 %[facility], KYErythrocyte distribution width (RBC) [Ratio]16.3 %High12.1 - 15.2 %[facility], KYHematocrit (Bld) [Volume fraction]36.5 %36 - 46 %[facility], KYHemoglobin (Bld) [Mass/Vol]12.5 g/dL12 - 16 g/dLMiami Valley Hospital, [place] Interpretation and review of laboratory resultsAbnormalMiami Valley Hospital, [place] Lymphocytes (Bld) [#/Vol]1.90 10*3/[facility], KYLymphocytes/100 WBC (Bld)25 %15 - 40 %[facility], KYMCH (RBC) [Entitic mass]28.8 pg26 - 34 pg [facility], KYMCHC (RBC) [Mass/Vol]34.3 g/dL31 - 37 g/dLMiami Valley Hospital, KYMCV (RBC) [Entitic vol]84.0 fL80 - 100 fLMiami Valley Hospital, KYMonocytes (Bld) [#/Vol]0.40 10*3/[facility], KYMonocytes/100 WBC (Bld)5 %4 - 8 %[facility], KYPlatelet mean volume (Bld) [Entitic vol]NOT REPORTED6 - 12 fLMiami Valley Hospital, KYPlatelets (Bld) [#/Vol]167 10*3/[facility], KYPlatelets (Bld) [#/Vol]NOT REPORTEDMercy Health- [place], KYRBC (Bld) [#/Vol]4.35 10*6/uL4 - 5.2 m/uLMercy Health- [place], KYRBC morphology finding Nom (Bld)NOT REPORTEDMercy Health- [place], KYSegmented neutrophils/100 WBC (Bld)68 %47 - 75 %[facility]- [place], KYSegs Absolute5.40[facility]- [place], KYWBC (Bld) [#/Vol]7.8 10*3/uLMercy Health- [place], KYWBC (Bld) [#/Vol]NOT REPORTEDper 100 WBCMercy Health- [place], KYWBC MorphologyNOT REPORTEDMercy Health- [place], KYComprehensive Metabolic Panel w/ Reflex to MGon 10-36-6096Gqoqhkx [Mass/Vol]4.4 g/dL3.5 - 5.2 g/dLMercy Health- [place], KYAlbumin/Globulin [Mass ratio]NOT REPORTEDMercy Health- [place], KYALP [Catalytic activity/Vol]117 U/LHigh35 - 104 U/LMercy Health- [place], KYALT [Catalytic activity/Vol]41 U/LHigh5 - 33 U/LMercy Health- [place], KYAnion gap [Moles/Vol]10 mmol/L9 - 17 mmol/LMercy Health- [place], KYAST [Catalytic activity/Vol]39 U/LHigh<32[facility]- [place], KYBilirubin Ql (U)0.52 mg/dL0.3 - 1.2 mg/dLMercy Health- [place], KYBun/Cre Yqkwj97[facility]- [place], KYCalcium [Mass/Vol]9.0 mg/dL8.6 - 10.4 mg/dLMercy Health- [place], KYChloride [Moles/Vol]101 mmol/L98 - 107 mmol/LMercy Health- [place], KYCO2 [Moles/Vol]26 mmol/L20 - 31 mmol/L [facility] [place], KYCreatinine [Mass/Vol]1.32 mg/dLHigh0.5 - 0.9 mg/dLMercy Health- [place], KYGFR Rymtvxqo90 mL/minLow>60[facility]- [place], KYGFR Non- Ujtbzyoe43 mL/minLow>60[facility]- [place], KYGFR/1.73 sq M predicted among non-blacks MDRD (S/P/Bld) [Vol rate/Area][facility]- [place], KYComment on above: Average GFR for 40-49 years old: 99 mL/min/1.73sq m Chronic Kidney Disease: <60 mL/min/1.73sq m Kidney failure: <15 mL/min/1.73sq m eGFR calculated using average adult body mass. Additional eGFR calculator available at: http://www.Qustodio/multiple_crcl_2012.htm GFR/1.73 sq M predicted among non-blacks MDRD (S/P/Bld) [Vol rate/Area]NOT REPORTEDMercy Health- [place], KYGlucose [Mass/Vol]173 mg/xKJytw38 - 99 mg/dLMercy Health- [place], KYInterpretation and review of laboratory resultsAbnormalMercy Health- [place], KYPotassium [Moles/Vol]3.9 mmol/L3.7 - 5.3 mmol/LMercy Health- [place], KYProtein [Mass/Vol]7.3 g/dL6.4 - 8.3 g/dLMercy Health- [place], KYSodium [Moles/Vol] 137 mmol/L135 - 144 mmol/LMercy Health- [place], KYUrea nitrogen [Mass/Vol]15 mg/dL6 - 20 mg/dLMercy Health- [place], KYOtheron 27-06-5385Yzhfvvre granulocytes (Bld) [#/Vol]NOT REPORTEDMercy Health- [place], KYSedimentation Rateon [id number] Rate15 mm0 - 20 mmMercy Health- [place], KYUrinalysis, reflex to microscopicon 09-16-2020 Bilirubin UrineNegativeNEGATIVEMercy Health- [place], KYColor, UAYELLOWYELLOWMercy Health- [place], KYGlucose, UrNegativeNEGATIVEMercy Health- [place], KYInterpretation and review of laboratory resultsAbnormalMercy Health- [place], KYKetones Ql (U)Negative NEGATIVEMercy Health- [place], KYLeukocyte esterase Test strip Ql (U)NegativeNEGATIVE [facility]- [place], KYNitrite, UrineNegativeNEGATIVEMercy Health- [place], KYpH, UA5.0 [facility], ALProtein (U) [Mass/Vol]TRACEAbnormalNEGATIVEMercer County Community Hospital- [place], KYSpecific Arthur, UA1.025[facility]- [place], KYTurbidity UACLEARCLEARMercer County Community Hospital- [place], KYUrinalysis CommentsMi[facility], KYUrine HgbNegativeNEGATIVE [facility], ALUrobilinogen, UrineNormalNormGalion Community Hospital, ALC- Reactive Proteinon [id number] [Mass/Vol]6 mg/LHigh0 - 5 mg/LMFostoria City Hospital, ALInterpretation and review of laboratory resultsAbUniversity [facility]als [facility], [place] CBC With Auto Differentialon [id number] (Bld) [#/Vol]0.00 10*3/[facility], KYBasophils/100 WBC (Bld)1 %0 - 2 %[facility], ALDifferential TypeYESMFostoria City Hospital, ALEosinophils (Bld) [#/Vol]0.10 10*3/[facility], ALEosinophils/100 WBC (Bld)1 %0 - 5 %[facility], ALErythrocyte distribution width (RBC) [Ratio]16.2 %High12.1 - 15.2 %[facility], [place] Hematocrit (Bld) [Volume fraction]35.4 %Low36 - 46 %[place], [place] Hemoglobin (Bld) [Mass/Vol]12.2 g/dL12 - 16 g/dLMiami Valley Hospital, [place] Interpretation and review of laboratory resultsAbnoJ.W. Ruby Memorial [facility], [place] Lymphocytes (Bld) [#/Vol]1.60 10*3/[facility], ALLymphocytes/100 WBC (Bld)28 %15 - 40 %[facility], ALMCH (RBC) [Entitic mass]29.1 pg26 - 34 pg [facility], ALMCHC (RBC) [Mass/Vol]34.5 g/dL31 - 37 g/dLMiami Valley Hospital, ALMCV (RBC) [Entitic vol]84.2 fL80 - 100 fLSelect [facility]- [place], KYMonocytes (Bld) [#/Vol]0.40 10*3/[facility]- [place], KYMonocytes/100 WBC (Bld)6 %4 - 8 %[facility]- [place], KYPlatelet mean volume (Bld) [Entitic vol]NOT REPORTED6 - 12 fLSelect Medical Specialty [facility] Health- [place], KYPlatelets (Bld) [#/Vol]160 10*3/[facility]- [place], KYPlatelets (Bld) [#/Vol]NOT REPORTEDMercer County Community Hospital- [place], KYRBC (Bld) [#/Vol]4.20 10*6/uL4 - 5.2 m/[facility]- [place], KYRBC morphology finding Nom (Bld)NOT REPORTEDMercer County Community Hospital- [place], KYSegmented neutrophils/100 WBC (Bld)64 %47 - 75 %[facility]- [place], KYSegs Absolute3.80[facility]- [place], KYWBC (Bld) [#/Vol]5.8 10*3/[facility]- [place], KYWBC (Bld) [#/Vol]NOT REPORTEDper 100 WBCSelect Medical Specialty Hospital [facility]- [place], KYWBC MorphologyNOT REPORTEDMercer County Community Hospital- [place], KYOtheron 35-59-0001Xeprcmhn granulocytes (Bld) [#/Vol]NOT REPORTED0 %[facility]- [place], KYSedimentation Rate on 27-37-7149Tyg Rate10 mm0 - 20 mmSelect [facility] Specialty [facility]- [place], KYC-Reactive Proteinon [id number] [Mass/Vol]2 mg/L0 - 5 mg/LMDayton Osteopathic Hospital- [place], KYCBC With Auto Differentialon [id number] (Bld) [#/Vol]0.10 10*3/[facility]- [place], [place] Basophils/100 WBC (Bld)1 %0 - 2 %[facility]- [place], KYDifferential TypeYESMDayton Osteopathic Hospital- [place], KYEosinophils (Bld) [#/Vol]0.10 10*3/[facility]- [place], [place] Eosinophils/100 WBC (Bld)1 %0 - 5 %[facility] [place], KYErythrocyte distribution width (RBC) [Ratio]16.8 %High12.1 - 15.2 %[facility]- [place], TIFFHematocrit (Bld) [Volume fraction]40.0 %36 - 46 %[facility]- [place], KYHemoglobin (Bld) [Mass/Vol] 13.5 g/dL12 - 16 g/dLMercer County Community Hospital- [place], KYInterpretation and review of laboratory resultsAbnormalMercer County Community Hospital- [place], KYLymphocytes (Bld) [#/Vol]1.70 10*3/[facility]- [place], KYLymphocytes/100 WBC (Bld)17 %15 - 40 %[facility]- [place], TIFFMCH (RBC) [Entitic mass]29.1 pg26 - 34 pgMercer County Community Hospital- [place], KYMCHC (RBC) [Mass/Vol] 33.8 g/dL31 - 37 g/dLMercer County Community Hospital- [place], KYMCV (RBC) [Entitic vol]86.0 fL80 - 100 fLMercer County Community Hospital- [place], KYMonocytes (Bld) [#/Vol]0.50 10*3/[facility]- [place], [place] Monocytes/100 WBC (Bld)5 %4 - 8 %[facility]- [place], TIFFPlatelet mean volume (Bld) [Entitic vol]NOT REPORTED6 - 12 fLMercer County Community Hospital- [place], KYPlatelets (Bld) [#/Vol]NOT REPORTEDMercer County Community Hospital- [place], KYPlatelets (Bld) [#/Vol]208 10*3/[facility]- [place], KYRBC (Bld) [#/Vol]4.65 10*6/uL4 - 5.2 m/[facility]- [place], KYRBC morphology finding Nom (Bld)NOT REPORTEDMercer County Community Hospital- [place], KYSegmented neutrophils/100 WBC (Bld)76 %High47 - 75 %[facility]- [place], KYSegs Absolute7.70HighSelect [facility]- [place], KYWBC (Bld) [#/Vol]NOT REPORTEDper 100 WBCSelect Medical Specialty Hospital [facility]- [place], KYWBC (Bld) [#/Vol] 10.0 10*3/[facility]- [place], [place]WBC MorphologyNOT REPORTEDMercy Health- [place], [place] Otheron 09-72-6175Lkztmqkw granulocytes (Bld) [#/Vol]NOT REPORTED0 %[facility]- [place], [place]YSedimentation Rateon 12-59-9751Qbl Rate6 mm0 - 20 mmMercy Health- [place], KYProtein / creatinine ratio, urineon 93-78-3693Nqhesqiemu, Ur101.2 mg/dL28 - 217 mg/dLMercy Health- [place], KYProtein (U) [Mass/Vol]8 mg/dLMercy Health- [place], [place] Comment on above:No normal range established.Urine Total Protein Creatinine Ratio0.08[facility]- [place], KYUrinalysison 99-25-3996Kgpyazebz UrineNegative NEGATIVEMercy Health- [place], KYColor, UAYELLOWYELLOWMercy Health- [place], KYGlucose, Ur 100 mg/dLAbnormalNEGATIVEMercy Health- [place], KYInterpretation and review of laboratory resultsAbnormalMercy Health- [place], KYKetones Ql (U)NegativeNEGATIVE [facility]- [place], KYLeukocyte esterase Test strip Ql (U)NegativeNEGATIVEMercy Health- [place], KYNitrite, UrineNegativeNEGATIVEMercy Health- [place], KYpH, UA6.0[facility]- [place], KYProtein (U) [Mass/Vol]NegativeNEGATIVEMercy Health- [place], KYSpecific Arthur, UA1.020[facility]- [place], KYTurbidity UACLEARCLEARMercy Health- [place] Urinalysis CommentsMercy Health- [place], KYUrine HgbNegativeNEGATIVEMercy Health- [place], KYUrobilinogen, UrineNormalNormalMercy Health- [place], KYComprehensive Metabolic Panelon 72-51-4733Lhkzlbg [Mass/Vol]4.4 g/dL3.5 - 5.2 g/dLMercy Health- [place], [place] Albumin/Globulin [Mass ratio]NOT REPORTEDMercy Health- [place], KYALP [Catalytic activity/Vol]87 U/L35 - 104 U/LMercy Health- [place], KYALT [Catalytic activity/Vol] 21 U/L5 - 33 U/LMercy Health- [place], KYAnion gap [Moles/Vol]10 mmol/L9 - 17 mmol/L [facility]- [place], KYAST [Catalytic activity/Vol]22 U/L<32[facility]- [place], [place] Bilirubin Ql (U)0.32 mg/dL0.3 - 1.2 mg/dLMercer County Community Hospital- [place], KYBun/Cre Ratio18 [facility], KYCalcium [Mass/Vol]10.1 mg/dL8.6 - 10.4 mg/dLMiami Valley Hospital, KYChloride [Moles/Vol]104 mmol/L98 - 107 mmol/LMUniversity [facility]als [facility] [place], KYCO2 [Moles/Vol]26 mmol/L20 - 31 mmol/LMDayton Osteopathic Hospital- [place], KYCreatinine [Mass/Vol]1.37 mg/dLHigh0.5 - 0.9 mg/dLMiami Valley Hospital, KYGFR Apsmtavn74 mL/minLow>60 [facility] [place], KYGFR Non- Nkzhsntj08 mL/minLow>60[facility], [place] GFR/1.73 sq M predicted among non-blacks MDRD (S/P/Bld) [Vol rate/Area]NOT REPORTEDMiami Valley Hospital, KYGFR/1.73 sq M predicted among non-blacks MDRD (S/P/Bld) [Vol rate/Area][facility], KYComment on above:Average GFR for 40-49 years old: 99 mL/min/1.73sq m Chronic Kidney Disease: <60 mL/min/1.73sq m Kidney failure: <15 mL/min/1.73sq m eGFR calculated using average adult body mass. Additional eGFR calculator available at: http://www.ComparaMejor.com.VitaSensis/multiple_crcl_2012.htm Glucose [Mass/Vol]160 mg/oLVcos15 - 99 mg/dLMiami Valley Hospital, KYInterpretation and review of laboratory resultsAbnormalMiami Valley Hospital, KYPotassium [Moles/Vol]4.6 mmol/L3.7 - 5.3 mmol/LMDayton Osteopathic Hospital- [place], KYProtein [Mass/Vol]7.4 g/dL6.4 - 8.3 g/dLMiami Valley Hospital, KYSodium [Moles/Vol]140 mmol/L135 - 144 mmol/LMercy Health- [place], KYUrea nitrogen [Mass/Vol]24 mg/dLHigh6 - 20 mg/dLHarm[place], KYHemoglobin A1Con 45-92-3073Ubasabm [Mass/Vol]123 mg/dLHarm[place], KYComment on above:The ADA and AACC recommend providing the estimated average glucose result to permit better patient understanding of their HBA1c result. HbA1c (Bld) [Mass fraction]5.9 %4 - 6 %[place], KYLDL Cholesterol, Directon 82-44-3828Iivniemqtax in LDL [Mass/Vol]58 mg/dL<100[place], [place] Lipid Panelon 59-96-7013Pjzymkoedki [Mass/Vol]194 mg/dL<200[place], [place] Comment on above: Cholesterol Guidelines: <200 Desirable 200-240 Borderline >240 Undesirable Cholesterol in HDL [Mass/Vol]27 mg/dLLow>40[place], KYComment on above: HDL Guidelines: <40 Undesirable 40-59 Borderline >59 Desirable Cholesterol in LDL [Mass/Vol]0 - 130 mg/dLH[place], KYComment on above: Calculation not valid for Triglyceride value greater than 400 mg/dL. Direct LDL reflexed LDL Guidelines: <100 Desirable 100-129 Near to/above Desirable 130-159 Borderline >159 Undesirable Direct (measured) LDL and calculated LDL are not interchangeable tests. Cholesterol in VLDL [Mass/Vol]NOT REPORTED1 - 30 mg/dL[place], [place] Cholesterol.total/Cholesterol in HDL [Mass ratio]7.2 {ratio}High<5[place], KYInterpretation and review of laboratory resultsAbnormalH[place], KYTriglyceride [Mass/Vol]1112 mg/dLHigh<150[place], KYComment on above: Triglyceride Guidelines: <150 Desirable 150-199 Borderline 200-499 High >499 Very high Based on AHA Guidelines for fasting triglyceride, July 2012. Patient Fasting?on 81-38-5552Oywokgk Fasting?YESH[place], KYVitamin D 25 Hydroxyon 51-13-9685Uiv D, 25-Pzawagd08.2 ng/mL30 - 100 ng/mLH[place], KYComment on above: Reference Range: Vitamin D status Range Deficiency <20 ng/mL Mild Deficiency 20-30 ng/mL Sufficiency 30-100 ng/mL Toxicity >100 ng/mL C-Reactive Proteinon 56-62-1872HNU [Mass/Vol]6.2 mg/LHigh0 - 5 mg/3TEN8 [employer] [place], KYInterpretation and review of laboratory resultsAbnormalMiami Valley Hospital, KYHemoglobin U6HPzqitde By: Janel Allen on 31-50-2962Qubwdqg [Mass/Vol] 108 mg/dLSt. John Of God HospitalOxynade Phone: comment on above:The ADA and AACC recommend providing the estimated average glucose result to permit better patient understanding of their HBA1c result. HbA1c (Bld) [Mass fraction]5.4 %4.8 - 5.9 %[employer] Phone: Homocysteine, SerumOrdered By: Janel Allen on 49-86-7249Nmvyzikgczpc9 umol/L<15.0[facility]Ox[facility] Phone: TSH without ReflexOrdered By: Janel Allen on 19-99-5384JBU Qn1.03 m[IU]/[employer] Phone: Vitamin B12 & FolateOrdered By: Janel Dignaharinder on 00-90-0923Yuvgxwjvc (Vitamin B12) [Mass/Vol]292 pg/mL232 - 1245 pg/mLSt. John Of God HospitalOxynade Phone: Folate13.8 ng/mL>4.8[facility] HospitalOx[facility] Phone: XR CERVICAL SPINE (4-5 VIEWS)on 26-04-8165Gxty degenerative changes cervical spine not unusual for age. Refer to the MRI [facility] 02/03/2019 with some of the findings discussed above. [place], KYEXAM: XR CERVICAL SPINE (4-5 VIEWS) HISTORY: Reason for exam:->history MRSA discitis of thoracicregion. New tingling and numbness of fingers COMPARISON: MRI cervical spine [facility] 02/03/2019, cervical spine series 04/03/2010. The [...] is normal. Swimmer's lateral viewshows no additional abnormality.[facility], Dannielle, Rick Incoming Radiant Results From [facility] 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 New tingling and numbness of fingers COMPARISON: MRI cervical spine [facility] 02/03/2019, cervical spine series 04/03/2010. The [...] unusual for age. Refer to the [facility] 02/03/2019 with some of the findings discussed above. [facility], [facility]-Reactive ProteinOrdered By: Azalea Knight on 07-28-2019 CRP [Mass/Vol]6.4 mg/LHigh0 - 5 mg/LMFostoria City Hospital, ALInterpretation and review of laboratory resultsAbnormGalion Community Hospital, ALCBC With Auto DifferentialOrdered By: Azalea Knight on 21-72-7997Iuiwnhyf Eos #0.10[facility], KYAbsolute Immature GranulocyteNOT REPORTEDMi[facility], [place] Absolute Lymph #2.10[facility], KYAbsolute [place] #0.50[facility], [place] Basophils (Bld) [#/Vol]0.00 10*3/uLMercy Health- [place], KYBasophils/100 WBC (Bld)1 %0 - 2 %[facility]- [place], KYDifferential TypeYESMercy Health- [place], [place] Eosinophils/100 WBC (Bld)1 %0 - 5 %[facility]- [place], KYErythrocyte distribution width (RBC) [Ratio]14.5 %12.1 - 15.2 %[facility]- [place], KYHematocrit (Bld) [Volume fraction]38.1 %36 - 46 %[facility]- [place], KYHemoglobin (Bld) [Mass/Vol] 12.9 g/dL12 - 16 g/dLSelect Medical Specialty [facility]- [place], KYImmature GranulocytesNOT REPORTED0 % [facility]- [place], KYLymphocytes/100 WBC (Bld)34 %15 - 40 %[facility]- [place], [place] MCH (RBC) [Entitic mass]29.5 pg26 - 34 pgSelect [facility] Specialty [facility]- [place], KYMCHC (RBC) [Mass/Vol]33.9 g/dL31 - 37 g/dLSelect Medical Specialty [facility]- [place], KYMCV (RBC) [Entitic vol]87.1 fL80 - 100 fLSelect Medical Specialty Hospital - [facility]- [place], KYMonocytes/100 WBC (Bld)8 %4 - 8 %[facility]- [place], KYMPVNOT REPORTED6 - 12 fLSelect Medical Specialty Hospital [facility]- [place], KYNRBC AutomatedNOT REPORTEDper 100 WBCSelect Medical Specialty Hospital [facility]- [place], KYPlatelet EstimateNOT REPORTEDSelect [facility]- [place], [place] Platelets (Bld) [#/Vol]222 10*3/uLSelect Medical Specialty Hospital [facility]- [place], KYRBC (Bld) [#/Vol]4.38 10*6/uL4 - 5.2 m/[facility]- [place], KYRBC morphology finding Nom (Bld)NOT REPORTEDSelect [facility]- [place], KYSegmented neutrophils/100 WBC (Bld)56 %47 - 75 % [facility]- [place], KYSegs Absolute3.50[facility]- [place], KYWBC (Bld) [#/Vol]6.2 10*3/uLSelect Medical Specialty [facility]- [place], KYWBC MorphologyNOT REPORTEDSelect [facility]- [place], [place] Sedimentation RateOrdered By: Azalea Knight on 75-29-1207Uws Rate19 mm0 - 30 mmMiami Valley Hospital, KYC-Reactive Proteinon 15-60-5957FLS [Mass/Vol]7.3 mg/LHigh0 - 5 mg/LMFostoria City Hospital, KYInterpretation and review of laboratory results AbnormalMiami Valley Hospital, KYAlbuminon 22-33-9779Nevzbhg [Mass/Vol]4.3 g/dL3.5 - 5.2 g/dLMi[facility], KYBUN & Creatinineon 70-61-1553Zgxcpuvmgp [Mass/Vol] 1.27 mg/dLHigh0.5 - 0.9 mg/dLMi[facility], KYGFR Lxeocgil87 mL/min Low>60[facility], KYGFR Non- Ngxloqhb47 mL/minLow>60[facility], KYGFR/1.73 sq M predicted among non-blacks MDRD (S/P/Bld) [Vol rate/Area]NOT REPORTEDMi[facility], KYGFR/1.73 sq M predicted among non-blacks MDRD (S/P/Bld) [Vol rate/Area][facility], KYComment on above:Average GFR for 40-49 years old: 99 mL/min/1.73sq m Chronic Kidney Disease: <60 mL/min/1.73sq m Kidney failure: <15 mL/min/1.73sq m eGFR calculated using average adult body mass. Additional eGFR calculator available at: http://www.ComparaMejor.com.VitaSensis/multiple_crcl_2012.htm Interpretation and review of laboratory resultsAbnormalMiami Valley Hospital, KYUrea nitrogen [Mass/Vol]18 mg/dL6 - 20 mg/dLMiami Valley Hospital, KYCalciumon 06-17-2019 Calcium [Mass/Vol]10.4 mg/dL8.6 - 10.4 mg/dLMi[facility], KYElectrolyte Panelon 84-81-2371Hrdcb gap [Moles/Vol]13 mmol/L9 - 17 mmol/LMFostoria City Hospital, KYChloride [Moles/Vol]103 mmol/L98 - 107 mmol/LMUniversity [facility] [place], KYCO2 [Moles/Vol]24 mmol/L20 - 31 mmol/LM[facility]cy Health- [place], KYPotassium [Moles/Vol]3.8 mmol/L3.7 - 5.3 mmol/LMer[facility]- [place], KYSodium [Moles/Vol]140 mmol/L135 - 144 mmol/LMercy Health- [place], KYHemoglobin and Hematocrit, Bloodon 06-17-2019 Hematocrit (Bld) [Volume fraction]35.4 %Low36 - 46 %[facility]- [place], [place] Hemoglobin (Bld) [Mass/Vol]12.1 g/dL12 - 16 g/dLMercy Health- [place], [place] Interpretation and review of laboratory resultsAbnormCone Health Moses [facility]- [place], [place] Magnesiumon 20-20-7334Ababwqxir [Mass/Vol]2.3 mg/dL1.6 - 2.6 mg/dLMercy Health- [place], KYMicroscopic Urinalysison 93-13-9296Ccldixhho, UANOT REPORTEDNoneMercy Health- [place], KYBacteria, UA1+AbnormalNoneMercy Health- [place], KYCasts UANOT REPORTED /LPFMercy Health- [place], KYCrystals UANOT REPORTEDNone /HPFMercy Health- [place], [place] Epithelial Cells UA2 TO 5/HPFMercy Health- [place], KYInterpretation and review of laboratory resultsAbnormHonorHealth Rehabilitation Hospitalcy Health- [place], KYMucus, UANOT REPORTEDNoneMercy Health- [place], KYOther Observations UANOT REPORTEDNOT REQ.[facility]- [place], KYRBC (U) [#/Vol]NOT REPORTEDMercy Health- [place], KYRenal Epithelial, UrineNOT REPORTED0 /HPFMercy Health- [place], KYTrichomonas, UANOT REPORTEDNoneMercy Health- [place], KYWBC, UA0 TO 20 /HPFMercy Health- [place], KYYeast, UANOT REPORTEDNoneMercy Health- [place], [place]- [facility]- [place], KYPhosphoruson 96-43-4099Lshebfeaj [Mass/Vol]3.0 mg/dL2.6 - 4.5 mg/dLMercy Health- [place], KYProtein / creatinine ratio, urineon 06-17-2019 Creatinine, Ur228.2 mg/vEDywt50 - 217 mg/dLSt. John Of God Hospitalcy Health- [place], KYInterpretation and review of laboratory resultsAbnormalSt. John Of God Hospitalcy Health- [place], KYProtein (U) [Mass/Vol]18 mg/dLMercer County Community Hospital- [place], KYComment on above:No normal range established.Urine Total Protein Creatinine Ratio0.08MerConfluence Health- [place], [place] Sedimentation Rateon 53-98-5587Eqq Rate24 mm0 - 30 mmMerConfluence Health- [place], [place] Urinalysison 64-96-5392Ypxxmdwif UrineNegativeNEGATIVEMer Health- [place], KYColor, UAYELLOWYELLOWMer Health- [place], KYGlucose, UrNegativeNEGATIVEMer Health- [place], KYInterpretation and review of laboratory resultsAbnormalSelect [facility]- [place], [place] Ketones Ql (U)NegativeNEGATIVEMer Health- [place], KYLeukocyte esterase Test strip Ql (U)NegativeNEGATIVEMercy Health- [place], KYNitrite, UrineNegativeNEGATIVEMer Health- [place], KYpH, UA6.0MerConfluence Health- [place], KYProtein (U) [Mass/Vol]TRACEAbnormal NEGATIVESelect [facility]- [place], KYSpecific Arthur, UA1.025MerConfluence Health- [place], [place] Turbidity UAHAZYAbnormalCLEARMercy Health- [place], KYUrinalysis CommentsMerConfluence Health- [place], KYUrine HgbNegativeNEGATIVEMer Health- [place], KYUrobilinogen, Urine NormalNormalMercer County Community Hospital- [place], KYMR CERVICAL SPINE WITHOUT CONTRASTon [...] or cord edema. /cdr Workstation ID: [id number] [facility] HospitalEXAMINATION: MR CERVICAL SPINE WITHOUT CONTRAST HISTORY: [...] creating probable mild left-sided neural foraminal stenosis. [facility] HospitalInterface, Rad In [facility] - 02/03/2019 11:02 AM EDT EXAMINATION: MR [...] be due to myelomalacia or cord edema. /[facility] Workstation ID: [id number] CERVICAL SPINE WITHOUT CONTRASTEXAMINATION: [...] be due to myelomalacia or cord edema. /[facility] Workstation ID: [id number] Dictated by: RONALD MCCRAY on ThuFebruary 03, 2019 10:34:16 AM EDT Transcribed by: FELICITY DE JESUS on ThuFebruary 03, 2019 10:58:51 AM EDT Finalized by: RONALD MCCRAY on ThuFebruary 03, 2019 10:59:35 AM EDTMercer County Community HospitalComment on above:Order Comment: Reason for exam?:neck pain Injury/Trauma or Illness?:Illness/Other How long have you had these symptoms (acute/chronic)?:Chronic Type of Exam?:Initial Additional signs and symptoms?:neck pain, chronic hx of multiple old injuries Cult,Alana 30-58-9723Dkse,MycobacteriaSpecimen Description .TISSUE EPIDURAL TISSUE Special Requests NOT REPORTED Direct Exam NO ACID FAST BACILLI SEEN (DIRECT SMEAR) Culture NO GROWTH 48 DAYS Report Status FINAL 10/11/2018[facility] SystemComment on above:Performed By: #### TROPI #### [facility] [address] [place] [address] Cult,MycobacteriaSpecimen Description .SPINE .TISSUE T4 LAMINA Special Requests NOT REPORTED Direct Exam NO ACID FAST BACILLI SEEN (DIRECT SMEAR) Culture NO GROWTH 48 DAYS Report Status FINAL 10/11/2018[facility] SystemComment on above:Performed By: #### LEATHAB #### [facility] [address] [place] [address] Cult,Funguson 56-14-2636Qpas,FungusSpecimen Description .TISSUE EPIDURAL TISSUE Special Requests NOT REPORTED Culture NO GROWTH 34 DAYS Report Status FINAL 09/27/2018[facility] SystemComment on above:Performed By: #### TERRYWB #### [facility] [address] [place] [address] Cult,FungusSpecimen Description .SPINE .TISSUE T4 LAMINA Special Requests NOT REPORTED Culture NO GROWTH 34 DAYS Report Status FINAL 09/27/2018[facility] Health SystemComment on above:Performed By: #### LEATHAB #### [facility] [address] [place], [place] [id number] BUNon 41-97-6192Sdro nitrogen mass conc20 mg/dL11 Watts StreetComment on above:Performed By: #### [id number] ####[facility] [address] [place], [place] [address]Wpaxtpyuuqrg 29-98-9711Xuxoefaluq mass conc1.3 mg/dLHigh0.5-1.1SArkansas Surgical HospitalComment on above: Performed By: #### [id number] ####OVID[facility] [address] [place] [address] eGFRon 65-09-0397wBBZ AA54 mL/min/1.73 c3CvftsgPbuiwynhdMcGehee Hospital Comment on above:Order Comment: Order added by Discern Expert.Performed By: #### [id number] ####OVID[facility] [address] [place], [place] [address]QQN/1.73 sq M predicted among non-blacks MDRD vol rate/area (S/P/Bld)45 mL/min/1.[address] Vincent Rehabilitation HospitalComment on above:Order Comment: Order added by Discern Expert.Performed By: #### [id number] ####[facility] [address] [place], [place] [address]Umoy Diffon 35-67-1859Auhtmdbhj Auto #/vol (Bld)0.0 E3/mcLNormal0.0-0.2SAstria Regional Medical Center SystemComment on above:Order Comment: Order Added by Discern Expert.Performed By: #### [id number] ####[facility] [address] [place], [place] [address]Yyqvqkkrs/100 WBC Auto (Bld)1.1 % Normal0.0-2.0[facility] SystemComment on above:Order Comment: Order Added by Discern Expert.Performed By: #### [id number] ####OVIDIO [address]Pib[address] [place], [place] [address]Zov Absolute0.0 E3/mcLNormal0.0-0.7[facility] SystemComment on above:Order Comment: Order Added by Discern Expert.Performed By: #### [id number] ####OVIDIO [address] [place], [place] [address]Jvjsyfcrorn/100 WBC Auto (Bld)0.3 %Normal0.0-11.0[facility] SystemComment on above:Order Comment: Order Added by Discern Expert.Performed By: #### [id number] ####OVIDIO [address]ElfZq[address] [place], [place] [address]Kvauzjuajxz Auto #/vol (Bld)1.2 E3/mcLNormal1.2-3.4SAstria Regional Medical Center SystemComment on above:Order Comment: Order Added by Discern Expert.Performed By: #### [id number] ####OVIDIO [address] [place], [place] [address]Fgzpvppisch/100 WBC Auto (Bld)30.6 %Ghgsnl10.0-55.0[facility] SystemComment on above:Order Comment: Order Added by Discern Expert.Performed By: #### [id number] ####OVIDIO [address]UgpQrh[address] [place], [place] [address]Ewka Absolute0.4 E3/mcLNormal0.0-0.7 [facility] SystemComment on above:Order Comment: Order Added by Discern Expert.Performed By: #### [id number] ####OVIDIO [address] [place], [place] [address]Rswmlhmfh/100 WBC Auto (Bld)10.2 %High0.0-10.0[facility] HospitalComment on above:Order Comment: Order Added by Discern Expert.Performed By: #### [id number] ####OVIDIO [address] [place], [place] [address]Gmbmik Absolute2.3 E3/mcLNormal1.4-6.5SArkansas Surgical Hospital Comment on above:Order Comment: Order Added by Discern Expert.Performed By: #### [id number] ####[facility] [address] [place], [place] [address]Twvcwi Auto57.8 % Ksxclz84.0-75.0[facility] HospitalComment on above:Order Comment: Order Added by Discern Expert.Performed By: #### [id number] ####OVID[facility] [address] [place], [place] [address]OUY w/ Auto Diffon 69-06-5079Qnvcnjtduxo distribution width Auto Ratio (RBC)19.9 %High11.5-14.5SArkansas Surgical HospitalComment on above:Performed By: #### [id number] ####OVID[facility] [address] [place], [place] [address]Hfmzszurcv Auto Volume Fraction (Bld)26.5 %Low36.0-48.0 [facility] HospitalComment on above:Performed By: #### [id number] ####OVIDIO [address] [place], [place] [address]Owvbqnffyp mass conc (Bld)8.7 g/dLLow12.0-16.0[facility] HospitalComment on above:Performed By: #### [id number] ####OVIDIO [address] [place], [place] [address]MVX Auto Entitic mass (RBC)29.6 akSaypeb27.0-31.0[facility] Health HospitalComment on above:Performed By: #### [id number] ####OVIDIO [address] [place], [place] [address]HVYK Auto mass conc (RBC)32.9 g/dLLow33.0-37.0[facility] SystemComment on above:Performed By: #### [id number] ####OVIDIO [address] [place] [address]MCV Auto Entitic volume (RBC)89.8 oMIlcalh16.0-100.0 [facility] HospitalComment on above:Performed By: #### [id number] ####OVIDIO [address] [place], [place] [address]Platelet mean volume Auto Entitic volume (Bld)10.5 fLNormal7.4-11.0[facility] SystemComment on above:Performed By: #### [id number] ####OVIDIO [address] [place], [place] [address]Platelets Auto #/vol (Bld)117 E3/znGPay021-310GkkmvnvltSpringwoods Behavioral Health HospitalComment on above:Performed By: #### [id number] ####OVIDIO [address] [place], [place] [address]RBC Auto #/vol (Bld)2.95 E6/mcLLow3.90-5.40SAstria Regional Medical Center SystemComment on above:Performed By: #### [id number] ####OVIDIO [address] [place], [place] [address]WBC Auto #/vol (Bld)4.0 E3/mcLNormal 3.6-11.0[facility] Health HospitalComment on above:Performed By: #### [id number] ####OVIDIO [address] [place], [place] [address]CRPon 40-38-0012VRY mass conc0.83 mg/dLNormal0.00-1.00[facility] SystemComment on above:Performed By: #### [id number] ####OVIDIO [address]Coup[address] [place], [place] [address]Morphon 57-80-4107Ftewhvtleevo Auto Ql (Bld)1+NormalSpringwoods Behavioral Health HospitalComment on above:Order Comment: Order Added by Discern Expert. Performed By: #### [id number] ####OVIDIO [address] [place] [address] Hypochromasia1+[facility] Hospital Fort SmithComment on above:Order Comment: Order Added by Discern Expert.Performed By: #### [id number] ####OVIDIO [address]OxpWh[address] [place], [place] [address]FVO morphology finding Nom (Bld)SEE MORPHOLOGYMercy Hospital Fort SmithComment on above:Order Comment: Order Added by Discern Expert.Performed By: #### [id number] ####OVIDIO [address]osRqpSnqh[address] [place], [place] [address]Bbs Rate Automatedon 86-98-5508Pmp Rate Automated 15 mm/hrMercy Hospital Fort SmithComment on above:Result Comment: AGE-SPECIFIC REFERENCE RANGES FOR SEDIMENTATION RATE AUTOMATED REFERENCE RANGE - MM/HR AGE MEN WOMEN 0-2 0-2 - PUBERTY 3-13 3-13 PUBERTY - 50 YRS 0-15 0-20 > 50 YRS0-20 0-30Performed By: #### [id number] ####OVIDIO Hematology Manual [address] [place], [place] [address]jbhtf morphon 09-20-2018 Platelet morphology finding Nom (Bld)[facility] HospitalComment on above:Performed By: #### [id number] ####OVIDIO [address]osLfyEojn[address] [place], [place] [address]Wuadyfppm Auto #/vol (Bld)[facility] Health HospitalComment on above:Performed By: #### [id number] ####OVIDIO [address] [place], [place] [address]AAMKN UREA NITROGENon 22-27-1332Lpnn nitrogen mass conc (Bld)19 mg/dLNormal7-20University HospitalComment on above:Performed By: #### ACBC, ESR, BUN, CREAT, CREACT, FX ####Testing performed at [address] [address] REACTIVE PROTEINon 57-68-1616JEG mass conc18.5 mg/LHigh0-10.0University HospitalComment on above:Performed By: #### ACBC, ESR, BUN, CREAT, CREACT, FX ####Testing performed at [address] [address]VLVui 09-13-2018 ABSOLUTE BAS0.1 U53ZtftocRwumcSanta Fe Indian Hospital on above:Performed By: #### ACBC, ESR, BUN, CREAT, CREACT, FX ####Testing performed at [place] [id number] EOS0.20 F20KlboryYmtavSanta Fe Indian Hospital on above:Performed By: #### ACBC, ESR, BUN, CREAT, CREACT, FX ####Testing performed at [place] [id number] NEUTROPHIL COUNT2.5 d78Zstslc4.0-7.0[facility] on above:Performed By: #### ACBC, ESR, BUN, CREAT, CREACT, FX ####Testing performed at [place] [id number]/100 WBC Auto (Bld)1.4 %Normal0.0-2.0[facility] on above:Performed By: #### ACBC, ESR, BUN, CREAT, CREACT, FX ####Testing performed at [place] [id number] DIFFAlta Vista Regional Hospital on above:Performed By: #### ACBC, ESR, BUN, CREAT, CREACT, FX ####Testing performed at [place] [id number]/100 WBC Auto (Bld)3.5 %Normal0.0-11.0 [facility] on above:Performed By: #### ACBC, ESR, BUN, CREAT, CREACT, FX ####Testing performed at [place] [id number] Auto #/vol (Bld)1.10 N73QjhaaeXvznnAlta Vista Regional Hospital on above:Performed By: #### ACBC, ESR, BUN, CREAT, CREACT, FX ####Testing performed at [place] 2655006Lymphocytes/100 WBC Auto (Bld)27.0 %Nadcgq25.0-55.0[facility] on above:Performed By: #### ACBC, ESR, BUN, CREAT, CREACT, FX ####Testing performed at [address] [address]Xuzdvpmkq Auto #/vol (Bld)0.4 S96MccajeQzesmRiverview Medical CenterComment on above:Performed By: #### ACBC, ESR, BUN, CREAT, CREACT, FX ####Testing performed at [address] [address]Xthijyexh/100 WBC Auto (Bld)9.4 %Normal0.0-10.0[facility] on above:Performed By: #### ACBC, ESR, BUN, CREAT, CREACT, FX ####Testing performed at [place] 2655006Neutrophils/100 WBC Auto (Bld) 58.7 %Xgdnyp23.0-75.0[facility] on above:Performed By: #### ACBC, ESR, BUN, CREAT, CREACT, FX ####Testing performed at [place] 2655006Erythrocyte distribution width Auto Ratio (RBC)17.6 %High11.5-14.5AOhio [facility] on above:Performed By: #### ACBC, ESR, BUN, CREAT, CREACT, FX ####Testing performed at [place] 2655006Hematocrit Auto Volume Fraction (Bld)26.2 %Low36.0-48.0[facility] on above:Performed By: #### ACBC, ESR, BUN, CREAT, CREACT, FX ####Testing performed at [place] 2655006Hemoglobin mass conc (Bld)8.8 g/dLLow12.0-16.0[facility] on above:Performed By: #### ACBC, ESR, BUN, CREAT, CREACT, FX ####Testing performed at [place] [address]5006MCH Auto Entitic mass (RBC)29.3 fqQwpnze29.0-35.0 [facility] on above:Performed By: #### ACBC, ESR, BUN, CREAT, CREACT, FX ####Testing performed at [place] 2655006MCHC Auto mass conc (RBC)33.7 g/iRTebihb86.0-37.0[facility] on above:Performed By: #### ACBC, ESR, BUN, CREAT, CREACT, FX ####Testing performed at [place] 2655006MCV Auto Entitic volume (RBC)86.9 vBAzljmm31.0-100.0[facility] on above:Performed By: #### ACBC, ESR, BUN, CREAT, CREACT, FX ####Testing performed at [place] 2655006Platelet mean volume Auto Entitic volume (Bld)10.1 fLNormal 7.4-11.0[facility] on above:Performed By: #### ACBC, ESR, BUN, CREAT, CREACT, FX ####Testing performed at [place] 2655006Platelets Auto #/vol (Bld)130 /cmmNormal 130.0-400.0[facility] on above:Performed By: #### ACBC, ESR, BUN, CREAT, CREACT, FX ####Testing performed at [place] [address]5006RBC Auto #/vol (Bld)3.01 /cmmLow4.0-5.4AOhio State Harding Hospital on above:Performed By: #### ACBC, ESR, BUN, CREAT, CREACT, FX ####Testing performed at [place] 2655006WBC Auto #/vol (Bld)4.2 /cmmNormal3.6-11.0[facility] on above:Performed By: #### ACBC, ESR, BUN, CREAT, CREACT, FX ####Testing performed at [place] 2655006CREATININE,SERUMon 95-22-7826Zelbpnmsxq mass conc1.5 mg/dLHigh0.52-1.04 [facility] on above:Performed By: #### ACBC, ESR, BUN, CREAT, CREACT, FX ####Testing performed at [place] [address]5006EST. GFR, Ehvgliax55 ml/min/1.73sq.[facility] on above:Performed By: #### ACBC, ESR, BUN, CREAT, CREACT, FX ####Testing performed at [place] [address]500[address]EST. GFR,Non Dgjjmkqd50 ml/min/1.73sq.[facility] on above:Performed By: #### ACBC, ESR, BUN, CREAT, CREACT, FX ####Testing performed at [place] 2655006GFR/1.73 sq M predicted among non-blacks MDRD vol rate/area (S/P/Bld)Average GFR for 30-39 years old = 109.[facility] Comment on above:Result Comment: Chronic Kidney disease, GFR = <60.Kidney failure, GFR = <15.The GFR estimate is not adjusted for extreme body surface area or acute process, nor has it been validated for women or ethnic groups other than and .Performed By: #### ACBC, ESR, BUN, CREAT, CREACT, FX ####Testing performed at [address] [address]AJGmk 98-02-2982YOI Velocity (Bld)49 mm/hHigh0-15 [facility] on above:Performed By: #### ACBC, ESR, BUN, CREAT, CREACT, FX ####Testing performed at [address] [address]ROG REQUESTon [phone] TOFAX TO DR HARTMAN AT [phone] AND TO [facility] AT [phone] General HospitalComment on above:Performed By: #### PHY, BUN, CREAT, FX ####Testing performed at [address] [address]RKP REQUEST on 35-09-8014GMT [id number] [facility] Medical CenterCommunson medical center on above: Performed By: #### FX ####Testing performed at [place] [address]5006BLOOD UREA NITROGENon 31-09-5976Muor nitrogen mass conc (Bld)21 mg/dLHigh7-20University HospitalComment on above:Performed By: #### PHY, BUN, CREAT, FX ####Testing performed at [place] 2655006CREATININE,SERUMon 07-98-6950Vdwydtuutn mass conc 1.4 mg/dLHigh0.52-1.04University HospitalComment on above:Performed By: #### PHY, BUN, CREAT, FX ####Testing performed at [address] [address]XIK. GFR, Hnhnfczf92 ml/min/1.73sq.[facility]Communson [facility] center on above:Performed By: #### PHY, BUN, CREAT, FX ####Testing performed at [address] [address]BXY. GFR,Non Rgdebrty38 ml/min/1.73sq.[facility] Comment on above:Performed By: #### PHY, BUN, CREAT, FX ####Testing performed at [address] [address]HTX/1.73 sq M predicted among non-blacks MDRD vol rate/area (S/P/Bld)Average GFR for 30-39 years old = 109.[facility] CenterCommunson [facility] center on above:Result Comment: Chronic Kidney disease, GFR = <60.Kidney failure, GFR = <15.The GFR estimate is not adjusted for extreme body surface area or acute process, nor has it been validated for women or ethnic groups other than and . Performed By: #### PHY, BUN, CREAT, FX ####Testing performed at [address] [address]XCY REQUESTon 45-09-2725HFW TO [phone] [facility] CenterComment on above:Performed By: #### PHY, BUN, CREAT, FX ####Testing performed at [address] [address]ROI NEW PHYSICIANon 61-23-4626ION NEW PHYSICIAN DEVAN UPCentral Vermont Medical CenterComment on above:Performed By: #### PHY, BUN, CREAT, FX ####Testing performed at [address] [address]QNDgo 90-68-7691Wqxb nitrogen mass conc24 mg/dLHigh6- [facility] Health HospitalComment on above:Performed By: #### [id number] ####OVIDIO [address] [place], [place] [address]Phbabrrmacqx 08-27-2018 Creatinine mass conc1.6 mg/dLHigh0.5-1.1SArkansas Surgical HospitalComment on above:Performed By: #### [id number] ####OVIDIO [address] [place], [place] [address]wJWZgd 66-33-1991dCJS AA43 mL/min/1.73 k6VjdzjyLyhzxgizpMercy Hospital Fort SmithComment on above:Order Comment: Order added by Discern Expert.Performed By: #### [id number] ####OVIDIO [address]Qk[address] [place], [place] [address]FDM/1.73 sq M predicted among non-blacks MDRD vol rate/area (S/P/Bld)36 mL/min/1.73 m2 [facility] Hospital Fort SmithComment on above:Order Comment: Order added by Discern Expert.Performed By: #### [id number] ####OVIDIO [address] [place], [place] [address]Tnfz,Tissueon [id number],TissueSpecimen Description .TISSUE EPIDURAL TISSUE Special Requests NOT [...] NOT REPORTED Trimethoprim/Sulfa <=10 SUSCEPTIBLE Vancomycin <=0.5 SUSCEPTIBLEAvita Health SystemComment on above:Performed By: #### LACWB #### [facility] [address] [place] [address] Cult,TissueSpecimen Description .SPINE .TISSUE T4 LAMINA [...] NOT REPORTED Trimethoprim/Sulfa <=10 SUSCEPTIBLE Vancomycin <=0.5 SUSCEPTIBLEAvita Health SystemComment on above:Performed By: #### LACWB #### [facility] [address] [place] [address]608 Basic Metabolic Profon 08-25-2018(cont.)[facility]ita Health SystemComment on above:Result Comment: Average GFR for 30-39 years old: 107 mL/min/1.73sq m Chronic Kidney Disease: <60 mL/min/1.73sq m Kidney failure: <15 mL/min/1.73sq m eGFR calculated using average adult body mass. Additional eGFR calculator available at: http://www.ComparaMejor.com.com/multiple_crcl_2012.htmPerformed By: #### TERRYWB #### [facility] [address] [place] [address] Anion gap molar conc14 mmol/LNormal9-17[facility] HospitalComment on above:Performed By: #### LACWB #### [facility] [address] [place] [address] Calcium mass conc9.1 mg/dLNormal8.6-10.4[facility] HospitalComment on above:Performed By: #### LACWB #### [facility] [address] [place] [address] 547[address] Chloride molar conc96 mmol/LTwa76-944RxbmzDayton Osteopathic HospitalComment on above:Performed By: #### LACWB #### [facility] [address] [place] [address] 13292 CO2 molar conc23 mmol/URtmxvf28-66FohnzDayton Osteopathic Hospital Comment on above:Performed By: #### LACWB #### [facility] [address] [place] [address] Creatinine mass conc1.52 mg/dLHigh0.50-0.90[facility] HospitalComment on above:Performed By: #### LACWB #### [facility] [address] [place] [address]482 GFR, Amer46 mL/minLow>60[facility] Comment on above:Performed By: #### LACWB #### [facility] [address] [place] [address] GFR,non Amer38 mL/minLow>60[facility] Comment on above:Performed By: #### LACWB #### [facility] [address] [place] [address] Glucose mass conc95 mg/bBJcasxu79-05NvfdrMountains Community HospitalComment on above:Performed By: #### LEATHAB #### [facility] [address] [place] [address] Potassium molar conc4.5 mmol/LNormal3.7-5.3MMountains Community HospitalComment on above:Performed By: #### LEATHAB #### [facility] [address] [place] [address] 87982 Sodium molar bsrq562 mmol/YUzh831-232IuspwDayton Osteopathic HospitalComment on above:Performed By: #### LACHELLE #### [facility] [address] [place] [address] 19972 Urea nitrogen mass conc43 mg/dLHigh6-20[facility]opathic HospitalComment on above:Performed By: #### LACHELLE #### [facility] [address] [place] [address]99 BUN/CRE RatioNOT REPORTEDSt. Louis Children'S Hospitalal9-20[facility] Comment on above:Performed By: #### LEATHAB #### [facility] [address] [place] [address] Staging:NOT REPORTEDNormalDayton Osteopathic HospitalComment on above:Performed By: #### LACHELLE #### [facility] [address] [place] [address]65 CBC with Diffon [id number]. Basophil0.07 k/uLNormal0.00-0.20 [facility] HospitalComment on above:Performed By: #### LEATHAB #### [facility] [address] [place] [address] Abs.Imm.Granulocyte0.08 k/uLNormal0.00-0.30[facility] HospitalComment on above:Performed By: #### LACWB #### [address] [address] Abs.Neutrophil (Seg)5.77 k/uLNormal1.50-8.10[facility]opathic HospitalComment on above:Performed By: #### LACWB #### [address] [address] Basophils/100 WBC (Bld)1 %Normal0-2MercKaiser Foundation Hospital Comment on above:Performed By: #### TERRYWB #### [address] [address] Eosinophils #/vol (Bld)0.12 10*3/uLNormal0.00-0.44[facility]opathic HospitalComment on above:Performed By: #### TERRYWB #### [address] [address] Eosinophils/100 WBC (Bld)1 %Normal1-4[facility] Osteopathic HospitalComment on above:Performed By: #### TERRYWB #### [address] [address] Immature granulocytes #/vol (Bld)1 %Vaxh2WbthiLoma Linda University Medical CenterComment on above:Performed By: #### LACWB #### [address] [address] Lymphocytes #/vol (Bld)1.83 10*3/uLNormal1.10-3.70[facility] HospitalComment on above:Performed By: #### LACWB #### [address] [address] Lymphocytes/100 WBC (Bld)21 %Ibk71-84LielvDayton Osteopathic HospitalComment on above:Performed By: #### LACWB #### [facility] [address] [place] [address] Monocytes #/vol (Bld)0.92 10*3/uLNormal0.10-1.20[facility] HospitalComment on above:Performed By: #### LACWB #### [facility] [employer] [address] [place] [address] Monocytes/100 WBC (Bld)11 %Normal3-12[facility]opathic HospitalComment on above:Performed By: #### LACWB #### [facility] [address] [place] [address]16 Neutrophil (Seg)66 %Bwwg18-45DkvauDayton Osteopathic Hospital Comment on above:Performed By: #### LACWB #### [facility] [address] [place] [address] 65716 Erythrocyte distribution width Ratio (RBC)14.6 %High11.8-14.4[facility] Osteopathic HospitalComment on above:Performed By: #### LACWB #### [facility] [address] [place] [address]608 Hematocrit Volume Fraction (Bld)32.6 %Low36.3-47.1MMountains Community HospitalComment on above:Performed By: #### LACWB #### [facility] [address] [place] [address] 10880 Hemoglobin mass conc (Bld)10.0 g/dLLow11.9-15.1MMountains Community HospitalComment on above:Performed By: #### LACWB #### [facility] [address] [place] [address]479 MCH Entitic mass (RBC)28.2 iiJtmmec98.2-33.5[facility] HospitalComment on above:Performed By: #### LACWB #### [facility] [address] [place] [address] 10893 MCHC mass conc (RBC)30.7 g/yJSicwbg03.4-34.8[facility]opathic HospitalComment on above:Performed By: #### LACWB #### [facility] [address] [place] [address] 53248 MCV Entitic volume (RBC)91.8 eKLkxmru41.6-102.9[facility] HospitalComment on above:Performed By: #### LACWB #### [facility] [address] [place] [address] 24740 NRBC Automated0.0 per 100 WBCNormal0.0[facility] Osteopathic HospitalComment on above:Performed By: #### LACWB #### [facility] [address] [place] [address] 35537 Platelet mean volume Entitic volume (Bld)10.4 fLNormal8.1-13.5[facility] HospitalComment on above:Performed By: #### LACWB #### [facility] [address] [place] [address] 25808 Platelets #/vol (Bld)292 10*3/jAKtcewb935-940MliihDayton Osteopathic HospitalComment on above:Performed By: #### LACWB #### [facility] [address] [place] [address] 30637 RBC #/vol (Bld)3.55 10*6/uLLow3.95-5.11[facility] HospitalComment on above:Performed By: #### LACWB #### [facility] [address] [place] [address] 33906 RBC morphology finding Nom (Bld)ANISOCYTOSIS PRESENTNormalDayton Osteopathic HospitalComment on above:Performed By: #### LACWB #### [address] [address] WBC #/vol (Bld)8.8 10*3/uLNormal3.5-11.3[facility]ist Medical CenterComment on above:Performed By: #### LACWB #### [address] [address] Auto Diff PerformedNOT REPORTEDAvita Health SystemComment on above:Performed By: #### LACWB #### [address] [address] Platelets #/vol (Bld)NOT REPORTEDAvita Health SystemComment on above:Performed By: #### LACWB #### [address] [address] WBC MorphologyNOT REPORTEDAvita Health System Comment on above:Performed By: #### LACWB #### [address] [address] Fungi,Direct Examon [id number],Direct ExamSpecimen Description .SPINE .TISSUE T4 LAMINA Special Requests NOT REPORTED Direct Exam NO FUNGAL ELEMENTS SEEN Report Status FINAL 08/25/2018Avita Health SystemComment on above:Performed By: #### LACWB #### [address] [address] Magnesiumon 11-31-9221Wtpoxaqci mass conc2.4 mg/dLNormal1.6-2.6 [facility] HospitalComment on above:Performed By: #### LACWB #### [address] [address] Procalcitoninon 81-76-4419Fjflgzb mass conc0.13 ng/mLHigh<0.09[facility]opathic HospitalComment on above:Result Comment: Suspected Sepsis: 0.09-0.49 [...] entered into the Change in Procalcitonin Calculator (www.dlccgo-cmf-mqmhqasrfo.VitaSensis) to determine the patient's Mortality Risk PrognosisPerformed By: #### LACWB #### [facility] [address] [place] [address] [id number] Cult,Aerobe/Anaerobeon 71-97-1715Wqdk,Aerobe/AnaerobeSpecimen Description .SPINE Special Requests NOT REPORTED Direct Exam DUPLICATE ORDER SEE RESULTS FOR TISSUE CULTURE Culture NOT REPORTED Report Status FINAL 08/24/2018[facility] Health SystemComment on above:Performed By: #### SPAG #### [facility] [address] [place] [address] [id number] Cult,Aerobe/AnaerobeSpecimen Description .SPINE Special Requests NOT REPORTED Direct Exam DUPLICATE ORDER SEE RESUULTS FOR TISSUE CULTURE Culture NOT REPORTED Report Status FINAL 08/24/2018[facility] Health SystemComment on above:Performed By: #### SPAG #### [facility] [address] [place] [address]80 FLUORO FOR SURGICAL PROCEDURESon [id number] FOR SURGICAL PROCEDURESRadiology exam is complete. No Radiologist dictation. Please follow up with ordering provider. Final resultNoMetroHealth Parma Medical CenterOPERATIVE REPORTon 08-24-2018 [facility]PORTKINDRED [facility] [address] [place] [address] OPERATIVE REPORT PATIENT NAME: CELINA GASPAR : 1980 [facility] REC NO: [id number] ROOM: 0431 ACCOUNT NO: [id number] ADMIT DATE: 08/15/2018 PROVIDER: Lita Mccray MD DATE OF PROCEDURE: 08/23/2018 SURGEON: Lita Mccray MD TEMPLATE CHECKER: Eliel Larios DO PREOPERATIVE DIAGNOSIS: Epidural abscess, [...] satisfactory condition. LITA MCCRAY MD CAT/V_SSNCK_I Doc#: [id number] CC: Lita Mccray MDNoalDayton Osteopathic HospitalProcalcitoninon 77-81-1134Ymrucid mass conc0.16 ng/mLHigh<0.09[facility] Comment on above:Result Comment: Suspected Sepsis: [...] entered into the Change in Procalcitonin Calculator (www.srpjyr-idk-cjnybyvdfj.VitaSensis) to determine the patient's Mortality Risk PrognosisPerformed By: #### DIEGO #### [facility] [address] [place] [address]959 Basic Metab w/rfx MGon 08-23-2018(cont.)NormalDayton Osteopathic HospitalComment on above:Result Comment: Average GFR for 30-39 years old: 107 mL/min/1.73sq m Chronic Kidney Disease: <60 mL/min/1.73sq m Kidney failure: <15 mL/min/1.73sq m eGFR calculated using average adult body mass. Additional eGFR calculator available at: http://www.ComparaMejor.com.VitaSensis/multiple_crcl_2012.htmPerformed By: #### DIEGO #### [facility] [address] [place] [address] 01517 Anion gap molar conc14 mmol/LNormal9-17[facility]opathic HospitalComment on above:Performed By: #### DIEGO #### [facility] [address] [place] [address] 89119 Calcium mass conc9.9 mg/dLNormal8.6-10.4[facility]opathic HospitalComment on above:Performed By: #### JANNETHG #### [facility] [address] [place] [address] 03750 Chloride molar conc99 mmol/EWezloz91-169YxxpmDayton Osteopathic HospitalComment on above:Performed By: #### JANNETHG #### [facility] [address] [place] [address] 40268 CO2 molar conc26 mmol/KKeoelv92-89RmpocDayton Osteopathic Hospital Comment on above:Performed By: #### DIEGO #### [facility] [address] [place] [address] 05768 Creatinine mass conc1.42 mg/dLHigh0.50-0.90[facility]opathic HospitalComment on above:Performed By: #### SPAG #### [facility] [address] [place] [address] 70166 GFR, Amer50 mL/minLow>60[facility] Comment on above:Performed By: #### SPAG #### [facility] [address] [place] [address] 26901 GFR,non Amer41 mL/minLow>60[facility] Comment on above:Performed By: #### SPAG #### [facility] [address] [place] [address] 23467 Glucose mass conc95 mg/cKEhhusn34-67KkgtdMountains Community HospitalComment on above:Performed By: #### JANNETHG #### [facility] [address] [place] [address] 35322 Potassium molar conc4.9 mmol/LNormal3.7-5.3MMountains Community HospitalComment on above:Result Comment: SPECIMEN SLIGHTLY HEMOLYZED, RESULTS MAY BE ADVERSELY AFFECTED.Performed By: #### SPAG #### [facility] [address] [place] [address] 19155 Sodium molar eqnm230 mmol/PGykumg187-918LtnvqDayton Osteopathic HospitalComment on above:Performed By: #### SPAG #### [facility] [address] [place] [address] 86990 Urea nitrogen mass conc31 mg/dLHigh6-20[facility] HospitalComment on above:Performed By: #### SPAG #### [facility] [address] [place] [address] 16453 BUN/CRE RatioNOT REPORTEDNormal9-20[facility] Comment on above:Performed By: #### SPAG #### [address] [address] Staging:NOT REPORTEDNormalDayton Osteopathic HospitalComment on above:Performed By: #### DIEGO #### [address] [address] CBC with Diffon 32-28-0712Iea. Basophil0.06 k/uLNormal0.00-0.20 [facility] HospitalComment on above:Performed By: #### DIEGO #### [address] [address] Abs.Imm.Granulocyte0.22 k/uLNormal0.00-0.30[facility]opathic HospitalComment on above:Performed By: #### DIEGO #### [address] [address] Abs.Neutrophil (Seg)4.43 k/uLNormal1.50-8.10[facility] Osteopathic HospitalComment on above:Performed By: #### DIEGO #### [address] [address] Basophils/100 WBC (Bld)1 %Normal0-2MMountains Community Hospital Comment on above:Performed By: #### DIEGO #### [address] [address] Eosinophils #/vol (Bld)0.15 10*3/uLNormal0.00-0.44[facility]opathic HospitalComment on above:Performed By: #### JANNETHG #### [address] [address] Eosinophils/100 WBC (Bld)2 %Normal1-4[facility] Osteopathic HospitalComment on above:Performed By: #### DIEGO #### [address] [address] Erythrocyte distribution width Ratio (RBC)14.4 %Zxbpeq43.8-14.4 [facility] HospitalComment on above:Performed By: #### JANNETHG #### [facility] [address] [place] [address] 59968 Hematocrit Volume Fraction (Bld)33.2 %Low36.3-47.1MMountains Community HospitalComment on above:Performed By: #### SPAG #### [facility] [address] [place] [address] 14313 Hemoglobin mass conc (Bld)10.4 g/dLLow11.9-15.1MMountains Community HospitalComment on above:Performed By: #### JANNETHG #### [address] [address] Immature granulocytes #/vol (Bld)3 %Axoi0FrobiDayton Osteopathic HospitalComment on above:Performed By: #### JANNETHG #### [facility] [address] [place] [address] 82929 Lymphocytes #/vol (Bld)2.22 10*3/uLNormal1.10-3.70[facility] HospitalComment on above:Performed By: #### SPAG #### [facility] [employer] [address] [place] [address] 70158 Lymphocytes/100 WBC (Bld)29 %Egbfje83-24YmjvuDayton Osteopathic HospitalComment on above:Performed By: #### SPAG #### [facility] [address] [place] [address] 67745 MCH Entitic mass (RBC)27.7 iaBpgmvx31.2-33.5[facility] HospitalComment on above:Performed By: #### SPAG #### [facility] [address] [place] [address] 14493 MCHC mass conc (RBC)31.3 g/jNUoulet66.4-34.8[facility] HospitalComment on above:Performed By: #### JANNETHG #### [facility] [address] [place] [address] 27662 MCV Entitic volume (RBC)88.3 gCPiqtqg99.6-102.9Day[facility] Osteopathic HospitalComment on above:Performed By: #### JANNETHG #### [facility] [address] [place] [address] 15110 Monocytes #/vol (Bld)0.63 10*3/uLNormal0.10-1.20Day[facility] Osteopathic HospitalComment on above:Performed By: #### DIEGO #### [facility] [address] [place] [address] 72028 Monocytes/100 WBC (Bld)8 %Normal3-12Day[facility] Osteopathic HospitalComment on above:Performed By: #### DIEGO #### [facility] [address] [place] [address] 99548 Neutrophil (Seg)57 %Szfxon22-43IawbzDayton Osteopathic Hospital Comment on above:Performed By: #### JANNETHG #### [facility] [address] [place] [address] 76046 NRBC Automated0.0 per 100 WBCNormal0.0Day[facility]opathic HospitalComment on above:Performed By: #### SPAG #### [facility] [address] [place] [address] 55884 Platelets #/vol (Bld)See Reflexed IPF GrpyhuExtvmx156-594PaycsDayton Osteopathic HospitalComment on above:Performed By: #### SPAG #### [facility] [address] [place] [address] 07912 RBC #/vol (Bld)3.76 10*6/uLLow3.95-5.11[facility] HospitalComment on above:Performed By: #### DIEGO #### [facility] [address] [place] [address] 59189 WBC #/vol (Bld)7.7 10*3/uLNormal3.5-11.3[facility]ist Medical CenterComment on above:Performed By: #### DIEGO #### [facility] [address] [place] [address] 04649 Auto Diff PerformedNOT REPORTEDAvita Health SystemComment on above:Performed By: #### DIEGO #### [facility] [address] [place] [address] 76005 Platelet mean volume Entitic volume (Bld)NOT REPORTEDSt. Louis Children'S Hospitalal8.1-13.5 [facility] HospitalComment on above:Performed By: #### DIEGO #### [facility] [address] [place] [address] 44631 Platelets #/vol (Bld)NOT REPORTEDNoMetroHealth Parma Medical CenterComment on above:Performed By: #### DIEGO #### [facility] [address] [place] [address] 24655 RBC morphology finding Nom (Bld)NOT REPORTEDAvita Health SystemComment on above:Performed By: #### DIEGO #### [facility] [address] [place] [address] 62510 WBC MorphologyNOT REPORTEDAvita Health System Comment on above:Performed By: #### DIEGO #### [facility] [address] [place] [address] 76589 Cult,Bloodon [id number],BloodSpecimen Description .BLOOD Special Requests L AC 6ML Culture NO GROWTH 6 DAYS Report Status FINAL 08/23/2018Avita Health SystemComment on above:Performed By: #### DIEGO #### [address] [address] Cult,BloodSpecimen Description .BLOOD Special Requests L FOREARM 6ML Culture NO GROWTH 6 DAYS Report Status FINAL 08/23/2018NormalDayton Osteopathic HospitalComment on above:Performed By: #### SPAG #### [address] [address] PLT, Immature Fract.on 88-65-2048Twneyhyd, Fluoresc.113 k/uLLow 138-453MerLoma Linda University Medical CenterComment on above:Performed By: #### SPAG #### [address] 36582 PLT, Immature Fract.3.7 %Normal1.1-10.3[facility]ist Medical CenterComment on above:Performed By: #### SPAG #### [address] 04375 CBC with Diffon [id number]. Basophil0.00 k/uLNormal0.0-0.2MMountains Community HospitalComment on above:Performed By: #### ULAG #### [address] 57856 Abs.Imm.Granulocyte0.30 k/uLNormal0.00-0.30[facility] HospitalComment on above:Performed By: #### ULAG #### [address] 70119 Abs.Neutrophil (Seg)4.87 k/uLNormal1.8-7.7[facility] HospitalComment on above:Performed By: #### ULAG #### [address] 93667 Basophils/100 WBC (Bld)0 %Normal0-2MercK[facility] Foundation [facility] Comment on above:Performed By: #### ULAG #### [facility] [address] [place] [address] 46135 Eosinophils #/vol (Bld)0.00 10*3/uLNormal0.0-0.4[facility] HospitalComment on above:Performed By: #### ULAG #### [facility] [address] [place] [address] 81684 Eosinophils/100 WBC (Bld)0 %Low1-4[facility] Comment on above:Performed By: #### ULAG #### [facility] [address] [place] [address] 32000 Immature granulocytes #/vol (Bld)4 %Ayvb6EwrnvDayton Osteopathic HospitalComment on above:Performed By: #### ULAG #### [facility] [address] [place] [address] 01921 Lymphocytes #/vol (Bld)1.88 10*3/uLNormal1.0-4.8[facility] HospitalComment on above:Performed By: #### ULAG #### [facility] [address] [place] [address] 29020 Lymphocytes/100 WBC (Bld)25 %Mfglzu52-36UxppfDayton Osteopathic HospitalComment on above:Performed By: #### ULAG #### [facility] [address] [place] [address] 12254 Monocytes #/vol (Bld)0.45 10*3/uLNormal0.1-0.8[facility] HospitalComment on above:Performed By: #### ULAG #### [facility] [address] [place] [address] 71205 Monocytes/100 WBC (Bld)6 %Normal1-7[facility] Comment on above:Performed By: #### ULAG #### [facility] [address] [place] [address] 49155 Morphology Interp Rehan (Bld)ANISOCYTOSIS PRESENTNormalDayton Osteopathic HospitalComment on above:Performed By: #### ULAG #### [facility] [address] [place] [address] 10014 Neutrophil (Seg)65 %Wqwoxs26-70RulzeDayton Osteopathic Hospital Comment on above:Performed By: #### ULAG #### [facility] [address] [place] [address] 88495 Erythrocyte distribution width Ratio (RBC)14.5 %High11.8-14.4[facility] HospitalComment on above:Performed By: #### ULAG #### [facility] [address] [place] [address] 59117 Hematocrit Volume Fraction (Bld)38.1 %Pmvyqb48.3-47.1MMountains Community HospitalComment on above:Performed By: #### ULAG #### [facility] [address] [place] [address] 19884 Hemoglobin mass conc (Bld)11.5 g/dLLow11.9-15.1MMountains Community HospitalComment on above:Performed By: #### ULAG #### [facility] [address] [place] [address] 81200 MCH Entitic mass (RBC)28.3 syEotacd61.2-33.5[facility] HospitalComment on above:Performed By: #### ULAG #### [facility] [address] [place] [address] 10654 MCHC mass conc (RBC)30.2 g/iBJujrlp92.4-34.8[facility] HospitalComment on above:Performed By: #### ULAG #### [facility] [address] [place] [address] 29019 MCV Entitic volume (RBC)93.6 dMUafilp21.6-102.9[facility] HospitalComment on above:Performed By: #### ULAG #### [facility] [address] [place] [address] 04070 NRBC Automated0.0 per 100 WBCNormal0.0[facility] HospitalComment on above:Performed By: #### ULAG #### [facility] [address] [place] [address] 14452 Platelet mean volume Entitic volume (Bld)10.7 fLNormal8.1-13.5[facility] HospitalComment on above:Performed By: #### ULAG #### [address] 34912 Platelets #/vol (Bld)265 10*3/yWTfpoti271-649StojfDayton Osteopathic HospitalComment on above:Performed By: #### ULAG #### [facility] [address] [place] [address] 68188 RBC #/vol (Bld)4.07 10*6/uLNormal3.95-5.11[facility] HospitalComment on above:Performed By: #### ULAG #### [address] 66162 WBC #/vol (Bld)7.5 10*3/uLNormal3.5-11.3MMountains Community HospitalComment on above:Performed By: #### ULAG #### [facility] [address] [place] [address] 18896 Auto Diff PerformedNOT REPORTEDSt. Louis Children'S HospitalalDayton Osteopathic HospitalComment on above:Performed By: #### ULAG #### [address] 51427 Platelets #/vol (Bld)NOT REPORTEDNoMetroHealth Parma Medical CenterComment on above:Performed By: #### ULAG #### [facility] [address] [place] [address] 70828 RBC morphology finding Nom (Bld)NOT REPORTEDNoMetroHealth Parma Medical CenterComment on above:Performed By: #### ULAG #### [facility] [address] [place] [address] 54536 WBC MorphologyNOT REPORTEDNoMetroHealth Parma Medical Center Comment on above:Performed By: #### ULAG #### [facility] [address] [place] [address] 14317 Comp Metabolic Pr/rfx MGon 06-99-9214Xjgtwbn mass conc3.2 g/dLLow 3.5-5.2[facility] Medical CenterComment on above:Performed By: #### ULAG #### [facility] [address] [place] [address] 84558 Albumin/Globulin mass ratio0.8 {ratio}Low1.0-2.5[facility] HospitalComment on above:Performed By: #### ULAG #### [facility] [address] [place] [address] 16009 Alkaline Phos90 U/OJgvain94-456MfqnqDayton Osteopathic Hospital Comment on above:Performed By: #### ULAG #### [facility] [address] [place] [address] 38688 ALT enzyme act/vol18 U/LNormal5-33[facility] Comment on above:Performed By: #### ULAG #### [facility] [address] [place] [address] 78574 AST enzyme act/vol16 U/LNormal<32[facility] Comment on above:Performed By: #### ULAG #### [facility] [address] [place] [address] 98981 Protein mass conc7.0 g/dLNormal6.4-8.3MMountains Community HospitalComment on above:Performed By: #### ULAG #### [facility] [place] [address] (cont.)NormalDayton Osteopathic HospitalComment on above: Result Comment: Average GFR for 30-39 years old: 107 mL/min/1.73sq m Chronic Kidney Disease: <60 mL/min/1.73sq m Kidney failure: <15 mL/min/1.73sq m eGFR calculated using average adult body mass. Additional eGFR calculator available at: http://www.Qustodio/multiple_crcl_2012.htmPerformed By: #### ULAG #### [facility] [address] [place] [address] 36697 Anion gap molar conc15 mmol/LNormal9-17[facility] HospitalComment on above:Performed By: #### ULAG #### [facility] [address] [place] [address] 56800 Bilirubin Ql (U)0.34 mg/dLNormal0.3-1.2MMountains Community HospitalComment on above:Performed By: #### ULAG #### [facility] [address] [place] [address] 35974 Calcium mass conc9.7 mg/dLNormal8.6-10.4[facility] HospitalComment on above:Performed By: #### ULAG #### [facility] [address] [place] [address] 83124 Chloride molar ygrm145 mmol/YOwbygn34-085ZowsyDayton Osteopathic HospitalComment on above:Performed By: #### ULAG #### [facility] [address] [place] [address] 33699 CO2 molar conc24 mmol/GTwsusm70-64OkzyrDayton Osteopathic Hospital Comment on above:Performed By: #### ULAG #### [facility] [address] [place] [address] Creatinine mass conc1.02 mg/dLHigh0.50-0.90[facility] HospitalComment on above:Performed By: #### ULAG #### [facility] [address] [place] [address] 88855 GFR, Amer>60Normal>60[facility]opathic HospitalComment on above:Performed By: #### ULAG #### [facility] [address] [place] [address] 23354 GFR,non Amer>60Normal>60[facility] Comment on above:Performed By: #### ULAG #### [facility] [address] [place] [address] 99218 Glucose mass ocho374 mg/fKYfex45-72PxlwcMountains Community Hospital Comment on above:Performed By: #### ULAG #### [facility] [address] [place] [address] 91251 Potassium molar conc4.5 mmol/LNormal3.7-5.3MMountains Community HospitalComment on above:Performed By: #### ULAG #### [facility] [address] [place] [address] 62013 Sodium molar tydw723 mmol/UUbpsgz107-967OivtyDayton Osteopathic HospitalComment on above:Performed By: #### ULAG #### [facility] [address] [place] [address] 94400 Urea nitrogen mass conc19 mg/dLNormal6-20[facility] HospitalComment on above:Performed By: #### ULAG #### [facility] [address] [place] [address] 94891 BUN/CRE RatioNOT REPORTEDNormal9-20[facility] Comment on above:Performed By: #### ULAG #### [facility] [address] [place] [address] 63700 Staging:NOT REPORTEDNoMetroHealth Parma Medical CenterComment on above:Performed By: #### ULAG #### [facility] [address] [place] [address] 11819 Magnesiumon 96-62-7784Cokbukjwi mass conc2.4 mg/dLNormal1.6-2.6 [facility] HospitalComment on above:Performed By: #### ULAG #### [facility] [address] [place] [address] 45022 Vancomycin Troughon 10-33-9295Wcwcqzkriz Fiaozs74.2 ug/mLCritically high10.0-20.0[facility] HospitalComment on above:Result Comment: Higher trough serum vancomycin concentrations of 15-20 ug/mL are recommended for complicated infections such as bacteremia, endocarditis, osteomyelitis, meningitis, and hospital acquired pneumonia. ADDED ONPerformed By: #### ULAG #### [facility] [address] [place] [address] 84290 Date last dose,NOT REPORTEDNoMetroHealth Parma Medical Center Comment on above:Performed By: #### ULAG #### [facility] [address] [place] [address] 47661 Dose amount,NOT REPORTEDNormalDayton Osteopathic Hospital Comment on above:Performed By: #### ULAG #### [facility] [address] [place] [address] 46684 Time last dose,NOT REPORTEDNoMetroHealth Parma Medical Center Comment on above:Performed By: #### ULAG #### [facility] [address] [place] [address] 69404 CBC with Diffon [id number]. Basophil0.08 k/uLNormal0.00-0.20 [facility] HospitalComment on above:Performed By: #### ULAG #### [address] 42845 Abs.Imm.Granulocyte0.50 k/uLHigh0.00-0.30[facility] HospitalComment on above:Performed By: #### ULAG #### [address] 97202 Abs.Neutrophil (Seg)4.73 k/uLNormal1.50-8.10[facility] HospitalComment on above:Performed By: #### ULAG #### [address] 02020 Basophils/100 WBC (Bld)1 %Normal0-2MMountains Community Hospital Comment on above:Performed By: #### ULAG #### [address] 90455 Eosinophils #/vol (Bld)0.17 10*3/uLNormal0.00-0.44[facility] HospitalComment on above:Performed By: #### ULAG #### [address] 17858 Eosinophils/100 WBC (Bld)2 %Normal1-4[facility] HospitalComment on above:Performed By: #### ULAG #### [address] 29366 Immature granulocytes #/vol (Bld)6 %Dygh6ChmezDayton Osteopathic HospitalComment on above:Performed By: #### ULAG #### [address] 50369 Lymphocytes #/vol (Bld)2.24 10*3/uLNormal1.10-3.70[facility] HospitalComment on above:Performed By: #### ULAG #### [facility] [address] [place] [address] 31865 Lymphocytes/100 WBC (Bld)27 %Xasvwn20-78XzrbeDayton Osteopathic HospitalComment on above:Performed By: #### ULAG #### [facility] [address] [place] [address] 09353 Monocytes #/vol (Bld)0.58 10*3/uLNormal0.10-1.20[facility] HospitalComment on above:Performed By: #### ULAG #### [facility] [address] [place] [address] 10297 Monocytes/100 WBC (Bld)7 %Normal3-12[facility] HospitalComment on above:Performed By: #### ULAG #### [facility] [address] [place] [address] 37954 Morphology Interp Rehan (Bld)ANISOCYTOSIS PRESENTNormalDayton Osteopathic HospitalComment on above:Performed By: #### ULAG #### [facility] [address] [place] [address] 27041 Neutrophil (Seg)57 %Uncsut86-40NyusaDayton Osteopathic Hospital Comment on above:Performed By: #### ULAG #### [facility] [address] [place] [address] 80520 Erythrocyte distribution width Ratio (RBC)14.6 %High11.8-14.4[facility] HospitalComment on above:Performed By: #### ULAG #### [facility] [address] [place] [address] 69576 Hematocrit Volume Fraction (Bld)38.5 %Jaoomu09.3-47.1MMountains Community HospitalComment on above:Performed By: #### ULAG #### [facility] [address] [place] [address] 61776 Hemoglobin mass conc (Bld)11.5 g/dLLow11.9-15.1MMountains Community HospitalComment on above:Performed By: #### ULAG #### [facility] [address] [place] [address] 57936 MCH Entitic mass (RBC)28.2 fzAxfwjp99.2-33.5[facility] HospitalComment on above:Performed By: #### ULAG #### [address] 47626 MCHC mass conc (RBC)29.9 g/tAHcpgsg62.4-34.8[facility] HospitalComment on above:Performed By: #### ULAG #### [address] 45612 MCV Entitic volume (RBC)94.4 pNGiwdhi97.6-102.9[facility] HospitalComment on above:Performed By: #### ULAG #### [address] 54054 NRBC Automated0.0 per 100 WBCNormal0.0[facility] HospitalComment on above:Performed By: #### ULAG #### [address] 55642 Platelet mean volume Entitic volume (Bld)10.5 fLNormal8.1-13.5[facility] HospitalComment on above:Performed By: #### ULAG #### [address] 48392 Platelets #/vol (Bld)264 10*3/yPSmoduh984-762UtumiDayton Osteopathic HospitalComment on above:Performed By: #### ULAG #### [facility] [address] [place] [address] 09827 RBC #/vol (Bld)4.08 10*6/uLNormal3.95-5.11[facility] HospitalComment on above:Performed By: #### ULAG #### [facility] [address] [place] [address] 93750 WBC #/vol (Bld)8.3 10*3/uLNormal3.5-11.3[facility] Medical CenterComment on above:Performed By: #### ULAG #### [facility] [address] [place] [address] 68904 Auto Diff PerformedNOT REPORTEDAvita Health SystemComment on above:Performed By: #### ULAG #### [facility] [address] [place] [address] 75387 Platelets #/vol (Bld)NOT REPORTEDAvita Health SystemComment on above:Performed By: #### ULAG #### [facility] [address] [place] [address] 06731 RBC morphology finding Nom (Bld)NOT REPORTEDNoMetroHealth Parma Medical CenterComment on above:Performed By: #### ULAG #### [facility] [address] [place] [address] 09366 WBC MorphologyNOT REPORTEDAvita Health System Comment on above:Performed By: #### ULAG #### [facility] [address] [place] [address] 63552 Comp Metabolic Pr/rfx MGon 08-21-2018(cont.)Avita Health SystemComment on above:Result Comment: Average GFR for 30-39 years old: 107 mL/min/1.73sq m Chronic Kidney Disease: <60 mL/min/1.73sq m Kidney failure: <15 mL/min/1.73sq m eGFR calculated using average adult body mass. Additional eGFR calculator available at: http://www.globalrp.com/multiple_crcl_2012.htmPerformed By: #### ULAG #### [facility] [address] [place] [address] 26534 Albumin mass conc2.9 g/dLLow3.5-5.2MMountains Community Hospital Comment on above:Performed By: #### ULAG #### [facility] [address] [place] [address] 46273 Albumin/Globulin mass ratio0.7 {ratio}Low1.0-2.5[facility] HospitalComment on above:Performed By: #### ULAG #### [facility] [address] [place] [address] 94057 Alkaline Phos98 U/HPurbwo71-591FvijdDayton Osteopathic Hospital Comment on above:Performed By: #### ULAG #### [facility] [address] [place] [address] 77831 ALT enzyme act/vol19 U/LNormal5-33[facility] Comment on above:Performed By: #### ULAG #### [facility] [address] [place] [address] 51604 Anion gap molar conc14 mmol/LNormal9-17[facility] HospitalComment on above:Performed By: #### ULAG #### [facility] [address] [place] [address] 60061 AST enzyme act/vol21 U/LNormal<32[facility] Comment on above:Performed By: #### ULAG #### [facility] [address] [place] [address] 76501 Bilirubin Ql (U)0.32 mg/dLNormal0.3-1.2MMountains Community HospitalComment on above:Performed By: #### ULAG #### [facility] [address] [place] [address] 04886 Calcium mass conc9.1 mg/dLNormal8.6-10.4[facility] HospitalComment on above:Performed By: #### ULAG #### [address] 98444 Chloride molar bkug410 mmol/GDtcocf08-418AezzjDayton Osteopathic HospitalComment on above:Performed By: #### ULAG #### [address] 95959 CO2 molar conc23 mmol/AHwpgzj41-94GloedDayton Osteopathic Hospital Comment on above:Performed By: #### ULAG #### [address] 00911 Creatinine mass conc0.90 mg/dLNormal0.50-0.90[facility] HospitalComment on above:Performed By: #### ULAG #### [address] 71871 GFR, Amer>60Normal>60[facility] HospitalComment on above:Performed By: #### ULAG #### [address] 60320 GFR,non Amer>60Normal>60[facility] Comment on above:Performed By: #### ULAG #### [facility] [address] [place] [address] 69340 Glucose mass snze642 mg/fNPqjv57-97GhlmvMountains Community Hospital Comment on above:Performed By: #### ULAG #### [address] 29729 Potassium molar conc4.6 mmol/LNormal3.7-5.3MMountains Community HospitalComment on above:Performed By: #### ULAG #### [facility] [address] [place] [address] 14349 Protein mass conc6.9 g/dLNormal6.4-8.3[facility] Medical CenterComment on above:Performed By: #### ULAG #### [facility] [address] [place] [address] 23469 Sodium molar qsnk296 mmol/NPvpdto495-807FjrwsDayton Osteopathic HospitalComment on above:Performed By: #### ULAG #### [facility] [address] [place] [address] 65450 Urea nitrogen mass conc17 mg/dLNormal6-20[facility] HospitalComment on above:Performed By: #### ULAG #### [facility] [address] [place] [address] 24858 BUN/CRE RatioNOT REPORTEDOklahoma City9-20[facility] Comment on above:Performed By: #### ULAG #### [facility] [address] [place] [address] 42660 Staging:NOT REPORTEDNoMetroHealth Parma Medical CenterComment on above:Performed By: #### ULAG #### [facility] [address] [place] [address] 63765 Cult,Bloodon 19-70-2733Zezw,BloodSpecimen Description .BLOOD Special Requests L AC 20ML Culture POSITIVE Blood Culture CALLED TO MIS [place] [phone] DIRECT GRAM STAIN FROM BOTTLE: GRAM POSITIVE COCCI IN CLUSTERS METHICILLIN RESISTANT STAPHYLOCOCCUS AUREUS For susceptibility, refer to previous culture. Report Status FINAL 08/21/2018[facility]ita Health SystemComment on above:Performed By: #### ULAG #### [facility] [address] [place] [address] 60967 MRI FOOT LEFT W WO CONTRASTon [id number] FOOT LEFT W WO CONTRAST EXAMINATION: MRI [...] by: Murali Goff MD 08/21/18 Final resultNormalMercy Glendale Adventist Medical CenterMagnesiumon 08-21-2018 Magnesium mass conc2.4 mg/dLNormal1.6-2.6Mer[facility] Medical CenterComment on above:Performed By: #### ULAG #### [facility] [address] [place] [address] Procalcitoninon [id number] mass conc0.27 ng/mLHigh<0.09Mer[facility]ist Medical CenterComment on above:Result Comment: Suspected Sepsis: [...] entered into the Change in Procalcitonin Calculator (www.drrwts-kho-iazrdvdvpk.com) to determine the patient's Mortality Risk PrognosisPerformed By: #### SEBAG #### [facility] [address] [place] [address] [phone]-Hlqakara Proteinon 45-45-2630WXF mass conc50.4 mg/LHigh0.0-5.0 [facility] HospitalComment on above:Performed By: #### LALO, TROPI, PRCAL, MYCM #### [facility] [address] [place] [address] CBC with Diffon 29-07-4022Gof. Basophil0.08 k/uLNormal0.0-0.2[facility] centery [facility] Medical CenterComment on above:Performed By: #### LALO, TROPI, PRCAL, MYCM #### [facility] [address] [place], [place] [address] Abs.Imm.Granulocyte0.42 k/uLHigh0.00-0.30MerLoma Linda University Medical CenterComment on above:Performed By: #### LALO, DAMIENI, PRCAL, MYCM #### [address] [address] Abs.Neutrophil (Seg)4.57 k/uLNormal1.8-7.7Day[facility] HospitalComment on above:Performed By: #### LALO, TROPI, PRCAL, MYCM #### [address] [address] Basophils/100 WBC (Bld)1 %Normal0-2MMountains Community Hospital Comment on above:Performed By: #### LALO, TROPI, PRCAL, MYCM #### [place] [address] Eosinophils #/vol (Bld)0.25 10*3/uLNormal0.0-0.4Day[facility] HospitalComment on above:Performed By: #### LALO, DAMIENI, PRCAL, MYCM #### [address] [address] Eosinophils/100 WBC (Bld)3 %Normal1-4[facility] HospitalComment on above:Performed By: #### LALO, TROPI, PRCAL, MYCM #### [address] [address] Immature granulocytes #/vol (Bld)5 %Azhh9EqujsLoma Linda University Medical CenterComment on above:Performed By: #### LALO, TROPI, PRCAL, MYCM #### [address] [address] Lymphocytes #/vol (Bld)2.32 10*3/uLNormal1.0-4.8[facility] HospitalComment on above:Performed By: #### LACDS, TROPI, PRCAL, MYCM #### [facility] [address] [place] [address] Lymphocytes/100 WBC (Bld)28 %Ervstx30-25VvvkqDayton Osteopathic HospitalComment on above:Performed By: #### LACDS, TROPI, PRCAL, MYCM #### [facility] [address] [place] [address] 54844 Monocytes #/vol (Bld)0.66 10*3/uLNormal0.1-0.8[facility] HospitalComment on above:Performed By: #### LACDS, TROPI, PRCAL, MYCM #### [facility] [address] [place] [address] 99166 Monocytes/100 WBC (Bld)8 %High1-7[facility] Comment on above:Performed By: #### LACDS, TROPI, PRCAL, MYCM #### [facility] [address] [place] [address] 29094 Morphology Interp Rehan (Bld)ANISOCYTOSIS PRESENTNormalDayton Osteopathic HospitalComment on above:Performed By: #### LACDS, TROPI, PRCAL, MYCM #### [facility] [address] [place] [address] 28772 Neutrophil (Seg)55 %Drzzjq72-36VhexzDayton Osteopathic Hospital Comment on above:Performed By: #### LACDS, TROPI, PRCAL, MYCM #### [facility] [address] [place] [address] 6[address]98 Erythrocyte distribution width Ratio (RBC)14.6 %High11.8-14.4Day[facility] Osteopathic HospitalComment on above:Performed By: #### LACDS, TROPI, PRCAL, MYCM #### [facility] [address] [place] [address] 59427 Hematocrit Volume Fraction (Bld)33.5 %Low36.3-47.1MMountains Community HospitalComment on above:Performed By: #### LALO, TROPI, PRCAL, MYCM #### [facility] [address] [place] [address] 52922 Hemoglobin mass conc (Bld)10.2 g/dLLow11.9-15.1MMountains Community HospitalComment on above:Performed By: #### LACREY, TROPI, PRCAL, MYCM #### [facility] [address] [place] [address] 82754 MCH Entitic mass (RBC)27.9 miBlhumi63.2-33.5[facility] HospitalComment on above:Performed By: #### LALO, TROPI, PRCAL, MYCM #### [facility] [address] [place] [address] 33582 MCHC mass conc (RBC)30.4 g/dKCthalw35.4-34.8[facility] HospitalComment on above:Performed By: #### LALO, TROPI, PRCAL, MYCM #### [facility] [address] [place] [address] 75950 MCV Entitic volume (RBC)91.5 lPHpstmj79.6-102.9[facility] HospitalComment on above:Performed By: #### LACREY, TROPI, PRCAL, MYCM #### [facility] [address] [place] [address] 98245 NRBC Automated0.0 per 100 WBCNormal0.0Day[facility] HospitalComment on above:Performed By: #### LACREY, TROPI, PRCAL, MYCM #### [facility] [address] [place] [address] 86856 Platelet mean volume Entitic volume (Bld)11.0 fLNormal8.1-13.5Day[facility] HospitalComment on above:Performed By: #### LACDS, TROPI, PRCAL, MYCM #### [facility] [address] [place] [address] 88818 Platelets #/vol (Bld)211 10*3/iWSjucys233-537UdzixDayton Osteopathic HospitalComment on above:Performed By: #### LACDS, TROPI, PRCAL, MYCM #### [facility] [address] [place] [address] 69913 RBC #/vol (Bld)3.66 10*6/uLLow3.95-5.11Day[facility] HospitalComment on above:Performed By: #### LACDS, TROPI, PRCAL, MYCM #### [facility] [address] [place] [address] 91952 WBC #/vol (Bld)8.3 10*3/uLNormal3.5-11.3MMountains Community HospitalComment on above:Performed By: #### LACDS, TROPI, PRCAL, MYCM #### [facility] [address] [place] [address] 19509 Auto Diff PerformedNOT REPORTEDNoalDayton Osteopathic HospitalComment on above:Performed By: #### LACDS, TROPI, PRCAL, MYCM #### [facility] [address] [place] [address] 90222 Platelets #/vol (Bld)NOT REPORTEDNoMetroHealth Parma Medical CenterComment on above:Performed By: #### LACDS, TROPI, PRCAL, MYCM #### [facility] [address] [place] [address] 76682 RBC morphology finding Nom (Bld)NOT REPORTEDNormalDayton Osteopathic HospitalComment on above:Performed By: #### LACDS, TROPI, PRCAL, MYCM #### [facility] [address] [place] [address] 57235 WBC MorphologyNOT REPORTEDNormalDayton Osteopathic Hospital Comment on above:Performed By: #### GRACE MAY PRCAL, MYCM #### [facility] [address] [place] [address]129 Comp Metabolic Pr/rfx MGon 08-20-2018(cont.)NormalDayton Osteopathic HospitalComment on above:Result Comment: Average GFR for 30-39 years old: 107 mL/min/1.73sq m Chronic Kidney Disease: <60 mL/min/1.73sq m Kidney failure: <15 mL/min/1.73sq m eGFR calculated using average adult body mass. Additional eGFR calculator available at: http://www.Qustodio/multiple_crcl_2012.htmPerformed By: #### GRACE MAY PRCAL, MYCM #### [facility] [address] [place] [address] 30107 Albumin mass conc3.1 g/dLLow3.5-5.2MMountains Community Hospital Comment on above:Performed By: #### GRACE MAY, PRCAL, MYCM #### [facility] [address] [place] [address] 55687 Albumin/Globulin mass ratio0.9 {ratio}Low1.0-2.5Day[facility]opathic HospitalComment on above:Performed By: #### DAMIEN MAYI, PRCAL, MYCM #### [facility] [address] [place] [address] 08093 Alkaline Phos83 U/YUlrvts76-851KnjfyDayton Osteopathic Hospital Comment on above:Performed By: #### GRACE MAY, PRCAL, MYCM #### [facility] [address] [place] [address] 40836 ALT enzyme act/vol17 U/LNormal5-33[facility] Comment on above:Performed By: #### GRACE MAY, PRCAL, MYCM #### [facility] [place] [address] Anion gap molar conc11 mmol/LNormal9-17[facility]opathic HospitalComment on above:Performed By: #### LACDS, TROPI, PRCAL, MYCM #### [facility] [address] [place] [address] 08603 AST enzyme act/vol18 U/LNormal<32[facility] Comment on above:Performed By: #### LACDS, TROPI, PRCAL, MYCM #### [facility] [address] [place] [address] 10454 Bilirubin Ql (U)0.29 mg/dLLow0.3-1.2MMountains Community HospitalComment on above:Performed By: #### LACDS, TROPI, PRCAL, MYCM #### [facility] [address] [place] [address] 13160 Calcium mass conc9.0 mg/dLNormal8.6-10.4[facility] HospitalComment on above:Performed By: #### LACDS, TROPI, PRCAL, MYCM #### [facility] [address] [place] [address] 69628 Chloride molar hmyo610 mmol/VYojynh96-771QkoizDayton Osteopathic HospitalComment on above:Performed By: #### LACDS, TROPI, PRCAL, MYCM #### [facility] [address] [place] [address] 87968 CO2 molar conc27 mmol/EVtjlyw18-56ZbrnwDayton Osteopathic Hospital Comment on above:Performed By: #### LACDS, TROPI, PRCAL, MYCM #### [facility] [address] [place] [address] 15689 Creatinine mass conc0.97 mg/dLHigh0.50-0.90Day[facility] HospitalComment on above:Performed By: #### LACDS, TROPI, PRCAL, MYCM #### [facility] [address] [place] [address] 96155 GFR, Amer>60Normal>60Mer[facility] Medical CenterComment on above:Performed By: #### LACDS, TROPI, PRCAL, MYCM #### [facility] [address] [place] [address] 25825 GFR,non Amer>60Normal>60[facility] Comment on above:Performed By: #### LACDS, TROPI, PRCAL, MYCM #### [facility] [address] [place] [address] 86469 Glucose mass dvwk237 mg/dYYlts37-55Lrhat [facility] Comment on above:Performed By: #### LACDS, TROPI, PRCAL, MYCM #### [facility] [address] [place] [address] 7[address]10 Potassium molar conc4.4 mmol/LNormal3.7-5.3[facility] Medical CenterComment on above:Performed By: #### LACDS, TROPI, PRCAL, MYCM #### [facility] [address] [place] [address] 04182 Protein mass conc6.6 g/dLNormal6.4-8.3[facility] Medical CenterComment on above:Performed By: #### LACDS, TROPI, PRCAL, MYCM #### [facility] [address] [place] [address] 84062 Sodium molar ojxb861 mmol/QHeaweq653-826Rkozx [facility] CenterComment on above:Performed By: #### LACDS, TROPI, PRCAL, MYCM #### [facility] [address] [place] [address] 69622 Urea nitrogen mass conc15 mg/dLNormal6-20[facility] Medical CenterComment on above:Performed By: #### LACDS, TROPI, PRCAL, MYCM #### [facility] [address] [place] [address] 19967 BUN/CRE RatioNOT REPORTEDNormal9-20[facility] Comment on above:Performed By: #### LACDS, TROPI, PRCAL, MYCM #### [facility] [address] [place] [address] 21140 Staging:NOT REPORTEDNoMetroHealth Parma Medical CenterComment on above:Performed By: #### LACDS, TROPI, PRCAL, MYCM #### [facility] [address] [place] [address] 67145 Magnesiumon 64-39-7423Gnzulpzqb mass conc2.2 mg/dLNormal1.6-2.6 [facility] HospitalComment on above:Performed By: #### LACDS, TROPI, PRCAL, MYCM #### [facility] [address] [place] [address] 34315 Sedimentation Rateon 05-90-5118Suczkvvamxzgj Dfnw048 mmHigh0-20 [facility] HospitalComment on above:Performed By: #### LACDS, TROPI, PRCAL, MYCM #### [facility] [address] [place] [address] 97797 XR FOOT LEFT (MIN 3 VIEWS)on 64-91-4133WW FOOT LEFT (MIN 3 VIEWS) EXAMINATION: 3 [...] Signed by: Andrey Angelo MD 08/20/18 Final resultNoMetroHealth Parma Medical CenterCBC with Diffon 97-15-7920Dyh. Basophil0.00 k/uLNormal0.0-0.2MMountains Community HospitalComment on above: Performed By: #### LALO, TROPI, PRCAL, MYCM #### [facility] [address] [place] [address] 59263 Abs.Imm.Granulocyte0.42 k/uLHigh0.00-0.30[facility] HospitalComment on above:Performed By: #### LALO, TROPI, PRCAL, MYCM #### [facility] [address] [place] [address] 81315 Abs.Neutrophil (Seg)2.70 k/uLNormal1.8-7.7[facility] HospitalComment on above:Performed By: #### LALO, TROPI, PRCAL, MYCM #### [facility] [address] [place] [address] 35964 Basophils/100 WBC (Bld)0 %Normal0-2MMountains Community Hospital Comment on above:Performed By: #### LALO, TROPI, PRCAL, MYCM #### [facility] [address] [place] [address] 61565 Eosinophils #/vol (Bld)0.30 10*3/uLNormal0.0-0.4[facility] HospitalComment on above:Performed By: #### LACDS, TROPI, PRCAL, MYCM #### [facility] [address] [place] [address] 07170 Eosinophils/100 WBC (Bld)5 %High1-4[facility] Comment on above:Performed By: #### LACDS, TROPI, PRCAL, MYCM #### [facility] [address] [place] [address] 77744 Immature granulocytes #/vol (Bld)7 %Rygb8IcostDayton Osteopathic HospitalComment on above:Performed By: #### LACDS, TROPI, PRCAL, MYCM #### [facility] [address] [place] [address] 47567 Lymphocytes #/vol (Bld)2.22 10*3/uLNormal1.0-4.8[facility] HospitalComment on above:Performed By: #### LACDS, TROPI, PRCAL, MYCM #### [facility] [address] [place] [address] 54832 Lymphocytes/100 WBC (Bld)37 %Ieygdl00-23GrswoDayton Osteopathic HospitalComment on above:Performed By: #### LACDS, TROPI, PRCAL, MYCM #### [facility] [address] [place] [address] 37949 Monocytes #/vol (Bld)0.36 10*3/uLNormal0.1-0.8[facility] HospitalComment on above:Performed By: #### LACDS, TROPI, PRCAL, MYCM #### [facility] [address] [place] [address] 93423 Monocytes/100 WBC (Bld)6 %Normal1-7[facility] Comment on above:Performed By: #### LACDS, TROPI, PRCAL, MYCM #### [facility] [address] [place] [address] 17583 Morphology Interp Rehan (Bld)ANISOCYTOSIS PRESENTNormalDayton Osteopathic HospitalComment on above:Performed By: #### LACDS, TROPI, PRCAL, MYCM #### [facility] [address] [place] [address] 34652 Neutrophil (Seg)45 %Swsrqd04-41MejqwDayton Osteopathic Hospital Comment on above:Performed By: #### LACDS, TROPI, PRCAL, MYCM #### [facility] [address] [place] [address] 52845 Erythrocyte distribution width Ratio (RBC)14.6 %High11.8-14.4[facility]opathic HospitalComment on above:Performed By: #### LACDS, TROPI, PRCAL, MYCM #### [facility] [address] [place] [address] 55508 Hematocrit Volume Fraction (Bld)34.4 %Low36.3-47.1MMountains Community HospitalComment on above:Performed By: #### LACDS, TROPI, PRCAL, MYCM #### [facility] [address] [place] [address] 58171 Hemoglobin mass conc (Bld)10.4 g/dLLow11.9-15.1MMountains Community HospitalComment on above:Performed By: #### LACDS, TROPI, PRCAL, MYCM #### [facility] [address] [place] [address] 47953 MCH Entitic mass (RBC)28.0 hdBsvdbc15.2-33.5[facility] HospitalComment on above:Performed By: #### LACDS, TROPI, PRCAL, MYCM #### [facility] [address] [place] [address] 30713 MCHC mass conc (RBC)30.2 g/rJJchadr43.4-34.8[facility] HospitalComment on above:Performed By: #### LACDS, TROPI, PRCAL, MYCM #### [facility] [address] [place] [address] 47150 MCV Entitic volume (RBC)92.7 iGSteedy32.6-102.9[facility] HospitalComment on above:Performed By: #### LACDS, TROPI, PRCAL, MYCM #### [facility] [address] [place] [address] 35807 NRBC Automated0.3 per 100 WBCHigh0.0Day[facility] HospitalComment on above:Performed By: #### LACDS, TROPI, PRCAL, MYCM #### [facility] [address] [place] [address] 31371 Platelet mean volume Entitic volume (Bld)10.5 fLNormal8.1-13.5[facility] HospitalComment on above:Performed By: #### LACDS, TROPI, PRCAL, MYCM #### [facility] [address] [place] [address] 20247 Platelets #/vol (Bld)168 10*3/hRJytrnf815-957CelpqDayton Osteopathic HospitalComment on above:Performed By: #### LACDS, TROPI, PRCAL, MYCM #### [facility] [address] [place] [address] 27326 RBC #/vol (Bld)3.71 10*6/uLLow3.95-5.11[facility] HospitalComment on above:Performed By: #### LACDS, TROPI, PRCAL, MYCM #### [facility] [address] [place] [address] 90405 WBC #/vol (Bld)6.0 10*3/uLNormal3.5-11.3MercKaiser Foundation HospitalComment on above:Performed By: #### LACDS, TROPI, PRCAL, MYCM #### [facility] [address] [place] [address] 56540 Auto Diff PerformedNOT REPORTEDAvita Health SystemComment on above:Performed By: #### LACDS, TROPI, PRCAL, MYCM #### [facility] [address] [place] [address] 26958 Platelets #/vol (Bld)NOT REPORTEDAvita Health SystemComment on above:Performed By: #### LACDS, TROPI, PRCAL, MYCM #### [facility] [place] [address] RBC morphology finding Nom (Bld)NOT REPORTEDNoMetroHealth Parma Medical CenterComment on above:Performed By: #### LACDS, TROPI, PRCAL, MYCM #### [facility] [address] [place] [address] 96303 WBC MorphologyNOT REPORTEDNormalDayton Osteopathic Hospital Comment on above:Performed By: #### LACDS, TROPI, PRCAL, MYCM #### [facility] [address] [place] [address] 28865 Comp Metabolic Pr/rfx MGon 08-19-2018(cont.)NormalDayton Osteopathic HospitalComment on above:Result Comment: Average GFR for 30-39 years old: 107 mL/min/1.73sq m Chronic Kidney Disease: <60 mL/min/1.73sq m Kidney failure: <15 mL/min/1.73sq m eGFR calculated using average adult body mass. Additional eGFR calculator available at: http://www.Qustodio/multiple_crcl_2012.htmPerformed By: #### LACDS, TROPI, PRCAL, MYCM #### [facility] [place] [address] Albumin mass conc2.7 g/dLLow3.5-5.2[facility] Comment on above:Performed By: #### LACDS, TROPI, PRCAL, MYCM #### [facility] [place] [address] Albumin/Globulin mass ratio0.8 {ratio}Low1.0-2.5[facility]opathic HospitalComment on above:Performed By: #### LACDS, TROPI, PRCAL, MYCM #### [facility] [address] [place] [address] 06158 Alkaline Phos78 U/GTymmrd75-855SzdahDayton Osteopathic Hospital Comment on above:Performed By: #### LACDS, TROPI, PRCAL, MYCM #### [facility] [address] [place] [address] 01447 ALT enzyme act/vol16 U/LNormal5-33[facility] Comment on above:Performed By: #### LACDS, TROPI, PRCAL, MYCM #### [facility] [address] [place] [address] 55746 Anion gap molar conc10 mmol/LNormal9-17[facility] HospitalComment on above:Performed By: #### LACDS, TROPI, PRCAL, MYCM #### [facility] [address] [place] [address] 25432 AST enzyme act/vol16 U/LNormal<32[facility] Comment on above:Performed By: #### LACDS, TROPI, PRCAL, MYCM #### [facility] [address] [place] [address] 04414 Bilirubin Ql (U)0.21 mg/dLLow0.3-1.2MMountains Community HospitalComment on above:Performed By: #### LACDS, TROPI, PRCAL, MYCM #### [facility] [address] [place] [address] 08021 Calcium mass conc8.5 mg/dLLow8.6-10.4[facility] HospitalComment on above:Performed By: #### LACDS, TROPI, PRCAL, MYCM #### [facility] [address] [place] [address] 16700 Chloride molar uvan908 mmol/URbjuqw52-838WuizeDayton Osteopathic HospitalComment on above:Performed By: #### LACDS, TROPI, PRCAL, MYCM #### [facility] [address] [place] [address] 15360 CO2 molar conc24 mmol/ELjgwgk85-99PsltzDayton Osteopathic Hospital Comment on above:Performed By: #### LACDS, TROPI, PRCAL, MYCM #### [facility] [address] [place] [address] 02405 Creatinine mass conc0.88 mg/dLNormal0.50-0.90Day[facility] HospitalComment on above:Performed By: #### LACDS, TROPI, PRCAL, MYCM #### [facility] [address] [place] [address] 18993 GFR, Amer>60Normal>60[facility]opathic HospitalComment on above:Performed By: #### LACDS, TROPI, PRCAL, MYCM #### [facility] [address] [place] [address] 61728 GFR,non Amer>60Normal>60[facility] Comment on above:Performed By: #### LACDS, TROPI, PRCAL, MYCM #### [facility] [address] [place] [address] 36594 Glucose mass aguw292 mg/jSPbxk75-28NisujMountains Community Hospital Comment on above:Performed By: #### LACDS, TROPI, PRCAL, MYCM #### [facility] [address] [place] [address] 18861 Potassium molar conc4.0 mmol/LNormal3.7-5.3MMountains Community HospitalComment on above:Performed By: #### LACDS, TROPI, PRCAL, MYCM #### [facility] [address] [place] [address] 09529 Protein mass conc6.3 g/dLLow6.4-8.3Mohiohealth [facility] health centery [facility] Comment on above:Performed By: #### LACDS, TROPI, PRCAL, MYCM #### [facility] [address] [place] [address] 95053 Sodium molar uodd553 mmol/IGafvik518-997FpyfeDayton Osteopathic HospitalComment on above:Performed By: #### LALO, TROPI, PRCAL, MYCM #### [facility] [address] [place] [address] Urea nitrogen mass conc16 mg/dLNormal6-20[facility]opathic HospitalComment on above:Performed By: #### LACREY, TROPI, PRCAL, MYCM #### [facility] [place] [address] BUN/CRE RatioNOT REPORTEDNormal9-20[facility] Comment on above:Performed By: #### LALO, TROPI, PRCAL, MYCM #### [facility] [address] [place] [address] 74512 Staging:NOT REPORTEDNormSelect Medical Specialty Hospital - AkronComment on above:Performed By: #### LACREY, TROPI, PRCAL, MYCM #### [facility] [address] [place] [address] 85337 Cult, Bloodon [id number], BloodSpecimen Description .BLOOD Special Requests L HAND [...] NOT REPORTED Trimethoprim/Sulfa <=10 SUSCEPTIBLE Vancomycin 1 SUSCEPTIBLENoMetroHealth Parma Medical CenterComment on above: Performed By: #### LACDS, TROPI, PRCAL, MYCM #### [facility] [address] [place] [address] MRI CERVICAL SPINE W WO CONTRASTon [id number] CERVICAL SPINE W WO CONTRASTEXAMINATION: MRI OF [...] Signed by: Bo Rodrigues MD 08/19/18 Final resultNormalMerLoma Linda University Medical [facility] L[facility] SP[facility] CONTRAST on [id number] LUMBAR SPINE W WO CONTRASTEXAMINATION: MRI OF [...] by: Bo Rodrigues MD 08/19/18 Final resultNormalMer[facility] THORACIC SPINE W WO CONTRASTon [id number] THORACIC SPINE W WO CONTRASTEXAMINATION: MRI OF [...] by: Bo Rodrigues MD 08/19/18 Final resultNormalMercy [facility] Medical CenterMagnesiumon 08-19-2018 Magnesium mass conc2.3 mg/dLNormal1.6-2.6[facility] Medical CenterComment on above:Performed By: #### GRACE MAY PRCAL, MARYCRUZM #### [facility] [address] [place] [address] Procalcitoninon 63-77-8004Ajjjzlb mass conc0.57 ng/mLHigh<0.09MerLoma Linda University Medical CenterComment on above:Result Comment: Suspected Sepsis: [...] entered into the Change in Procalcitonin Calculator (www.ujvirw-bru-hrvtxqlszv.com) to determine the patient's Mortality Risk PrognosisPerformed By: #### GRACE MAY PRCAL, MARYCRUZM #### [facility] [address] [place] [address] CBC with Diffon 21-56-1218Tvy. Basophil<0.90Zrfayx7.00-0.20MerLoma Linda University Medical CenterComment on above:Performed By: #### GRACE MAY PRCAL, JAZMYN #### [facility] [address] [place] [address] Abs.Imm.Granulocyte0.28 k/uLNormal0.00-0.30MerLoma Linda University Medical CenterComment on above:Performed By: #### DAMIEN MAYI, PRCAL, MYCM #### [facility] [address] [place] [address] 98168 Abs.Neutrophil (Seg)3.23 k/uLNormal1.50-8.10Day[facility]opathic HospitalComment on above:Performed By: #### LACDS, TROPI, PRCAL, MYCM #### [facility] [address] [place] [address] 16783 Basophils/100 WBC (Bld)0 %Normal0-2[facility] Comment on above:Performed By: #### LACDS, TROPI, PRCAL, MYCM #### [facility] [address] [place] [address] 59032 Eosinophils #/vol (Bld)0.15 10*3/uLNormal0.00-0.44[facility]opathic HospitalComment on above:Performed By: #### LACDS, TROPI, PRCAL, MYCM #### [facility] [address] [place] [address] 65270 Eosinophils/100 WBC (Bld)3 %Normal1-4[facility] Oste[facility] HospitalComment on above:Performed By: #### LACDS, TROPI, PRCAL, MYCM #### [facility] [address] [place] [address] 67402 Erythrocyte distribution width Ratio (RBC)14.7 %High11.8-14.4[facility]opathic HospitalComment on above:Performed By: #### LACDS, TROPI, PRCAL, MYCM #### [facility] [address] [place] [address] 29953 Hematocrit Volume Fraction (Bld)32.7 %Low36.3-47.1MercKaiser Foundation HospitalComment on above:Performed By: #### LACDS, TROPI, PRCAL, MYCM #### [facility] [address] [place] [address] 75347 Hemoglobin mass conc (Bld)10.1 g/dLLow11.9-15.1[facility] centery [facility] Medical CenterComment on above:Performed By: #### LACREY, TROPI, PRCAL, MYCM #### [facility] [address] [place] [address] 10622 Immature granulocytes #/vol (Bld)5 %Bxde1WzqyfDayton Osteopathic HospitalComment on above:Performed By: #### LACREY, TROPI, PRCAL, MYCM #### [facility] [address] [place] [address] 84036 Lymphocytes #/vol (Bld)1.58 10*3/uLNormal1.10-3.70[facility] HospitalComment on above:Performed By: #### LACREY, TROPI, PRCAL, MYCM #### [facility] [address] [place] [address] 50557 Lymphocytes/100 WBC (Bld)28 %Orfoun40-94EeuarDayton Osteopathic HospitalComment on above:Performed By: #### LALO, TROPI, PRCAL, MYCM #### [facility] [address] [place] [address] 29480 MCH Entitic mass (RBC)28.2 gnVzluvj81.2-33.5[facility] HospitalComment on above:Performed By: #### LACREY, TROPI, PRCAL, MYCM #### [facility] [address] [place] [address] 30318 MCHC mass conc (RBC)30.9 g/wMOlvaxn02.4-34.8[facility] HospitalComment on above:Performed By: #### LACDS, TROPI, PRCAL, MYCM #### [facility] [address] [place] [address] 89078 MCV Entitic volume (RBC)91.3 wWSgzvsc50.6-102.9[facility] HospitalComment on above:Performed By: #### LACDS, TROPI, PRCAL, MYCM #### [facility] [address] [place] [address] 37322 Monocytes #/vol (Bld)0.47 10*3/uLNormal0.10-1.20[facility] HospitalComment on above:Performed By: #### LACDS, TROPI, PRCAL, MYCM #### [facility] [address] [place] [address] 69854 Monocytes/100 WBC (Bld)8 %Normal3-12[facility] HospitalComment on above:Performed By: #### LACDS, TROPI, PRCAL, MYCM #### [facility] [address] [place] [address] 38528 Neutrophil (Seg)56 %Lgpion43-45MmadwDayton Osteopathic Hospital Comment on above:Performed By: #### LACDS, TROPI, PRCAL, MYCM #### [facility] [address] [place] [address] 53827 NRBC Automated0.0 per 100 WBCNormal0.0[facility] HospitalComment on above:Performed By: #### LACDS, TROPI, PRCAL, MYCM #### [address] [address] Platelet mean volume Entitic volume (Bld)11.4 fLNormal8.1-13.5Day[facility]opathic HospitalComment on above:Performed By: #### LACDS, TROPI, PRCAL, MYCM #### [facility] [address] [place] [address] 42354 Platelets #/vol (Bld)153 10*3/fPQwecca804-503OkcsiDayton Osteopathic HospitalComment on above:Performed By: #### LACDS, TROPI, PRCAL, MYCM #### [facility] [address] [place] [address] 24640 RBC #/vol (Bld)3.58 10*6/uLLow3.95-5.11[facility] HospitalComment on above:Performed By: #### LACDS, TROPI, PRCAL, MYCM #### [facility] [address] [place] [address] 39033 RBC morphology finding Nom (Bld)ANISOCYTOSIS PRESENTNormalDayton Osteopathic HospitalComment on above:Performed By: #### LACDS, TROPI, PRCAL, MYCM #### [facility] [address] [place] [address] 07892 WBC #/vol (Bld)5.7 10*3/uLNormal3.5-11.3[facility] Medical CenterComment on above:Performed By: #### LACDS, TROPI, PRCAL, MYCM #### [facility] [address] [place] [address] 69944 Auto Diff PerformedNOT REPORTEDNormSelect Medical Specialty Hospital - AkronComment on above:Performed By: #### LACDS, TROPI, PRCAL, MYCM #### [facility] [address] [place] [address] 36691 Platelets #/vol (Bld)NOT REPORTEDNormSelect Medical Specialty Hospital - AkronComment on above:Performed By: #### LACDS, TROPI, PRCAL, MYCM #### [facility] [address] [place] [address] 31780 WBC MorphologyNOT REPORTEDNoMetroHealth Parma Medical Center Comment on above:Performed By: #### LACDS, TROPI, PRCAL, MYCM #### [facility] [address] [place] [address] 04667 Comp Metabolic Pr/rfx MGon 08-18-2018(cont.)NormalDayton Osteopathic HospitalComment on above:Result Comment: Average GFR for 30-39 years old: 107 mL/min/1.73sq m Chronic Kidney Disease: <60 mL/min/1.73sq m Kidney failure: <15 mL/min/1.73sq m eGFR calculated using average adult body mass. Additional eGFR calculator available at: http://www.Qustodio/multiple_crcl_2012.htmPerformed By: #### LACDS, TROPI, PRCAL, MYCM #### [facility] [address] [place] [address] 10194 Albumin mass conc2.7 g/dLLow3.5-5.2[facility] centery [facility] Comment on above:Performed By: #### LACDS, TROPI, PRCAL, MYCM #### [facility] [address] [place] [address] 36175 Albumin/Globulin mass ratio0.8 {ratio}Low1.0-2.5[facility] HospitalComment on above:Performed By: #### LACDS, TROPI, PRCAL, MYCM #### [facility] [address] [place] [address] 26920 Alkaline Phos82 U/OSdcofb98-656EoqeiDayton Osteopathic Hospital Comment on above:Performed By: #### LACDS, TROPI, PRCAL, MYCM #### [facility] [address] [place] [address] 00599 ALT enzyme act/vol19 U/LNormal5-33[facility] Comment on above:Performed By: #### LACDS, TROPI, PRCAL, MYCM #### [facility] [address] [place] [address] 74308 Anion gap molar conc8 mmol/LLow9-17[facility] Comment on above:Performed By: #### LACDS, TROPI, PRCAL, MYCM #### [facility] [address] [place] [address] 79352 AST enzyme act/vol17 U/LNormal<32[facility] Comment on above:Performed By: #### LACDS, TROPI, PRCAL, MYCM #### [facility] [address] [place] [address] 95949 Bilirubin Ql (U)0.24 mg/dLLow0.3-1.2MMountains Community HospitalComment on above:Performed By: #### LACDS, TROPI, PRCAL, MYCM #### [facility] [address] [place] [address] 65126 Calcium mass conc8.2 mg/dLLow8.6-10.4[facility] HospitalComment on above:Performed By: #### LACDS, TROPI, PRCAL, MYCM #### [facility] [address] [place] [address] 49384 Chloride molar xurr476 mmol/JDryskf45-964SoxceDayton Osteopathic HospitalComment on above:Performed By: #### LACDS, TROPI, PRCAL, MYCM #### [facility] [address] [place] [address] 28896 CO2 molar conc25 mmol/QDedfqw35-70UwtorDayton Osteopathic Hospital Comment on above:Performed By: #### LACDS, TROPI, PRCAL, MYCM #### [facility] [address] [place] [address] 36532 Creatinine mass conc0.94 mg/dLHigh0.50-0.90[facility] HospitalComment on above:Performed By: #### LACDS, TROPI, PRCAL, MYCM #### [facility] [address] [place] [address] 29646 GFR, Amer>60Normal>60MerLoma Linda University Medical CenterComment on above:Performed By: #### LACDS, TROPI, PRCAL, MYCM #### [facility] [address] [place] [address] 44433 GFR,non Amer>60Normal>60[facility] Comment on above:Performed By: #### LACDS, TROPI, PRCAL, MYCM #### [facility] [address] [place] [address] 19118 Glucose mass douz528 mg/aNUbpl05-47NvxggMountains Community Hospital Comment on above:Performed By: #### LACDS, TROPI, PRCAL, MYCM #### [facility] [address] [place] [address] 78268 Potassium molar conc4.1 mmol/LNormal3.7-5.3MMountains Community HospitalComment on above:Performed By: #### LACDS, TROPI, PRCAL, MYCM #### [facility] [address] [place] [address] 86391 Protein mass conc6.2 g/dLLow6.4-8.3MMountains Community Hospital Comment on above:Performed By: #### LACDS, TROPI, PRCAL, MYCM #### [facility] [address] [place] [address] 72577 Sodium molar kukg506 mmol/MAosbtj464-898TozrsDayton Osteopathic HospitalComment on above:Performed By: #### LACDS, TROPI, PRCAL, MYCM #### [facility] [address] [place] [address] 15101 Urea nitrogen mass conc14 mg/dLNormal6-20[facility] HospitalComment on above:Performed By: #### LACDS, TROPI, PRCAL, MYCM #### [facility] [address] [place] [address] 23089 BUN/CRE RatioNOT REPORTEDNormal9-20[facility] Comment on above:Performed By: #### LACDS, TROPI, PRCAL, MYCM #### [facility] [address] [place] [address] 44445 Staging:NOT REPORTEDNoMetroHealth Parma Medical CenterComment on above:Performed By: #### LALO, TROPI, PRCAL, MYCM #### [facility] [address] [place] [address] 22431 Magnesiumon 63-85-0471Prqrloris mass conc2.3 mg/dLNormal1.6-2.6 [facility] HospitalComment on above:Performed By: #### LACREY, TROPI, PRCAL, MYCM #### [facility] [address] [place] [address] 59548 Vancomycin Troughon 41-96-3211Hsgqsyjtqu Vaqzrv00.7 ug/mLNormal 10.0-20.0[facility]opathic HospitalComment on above:Result Comment: Higher trough serum vancomycin concentrations of 15-20 ug/mL are recommended for complicated infections such as bacteremia, endocarditis, osteomyelitis, meningitis, and hospital acquired pneumonia.Performed By: #### LALO, TROPI, PRCAL, MYCM #### [facility] [address] [place] [address] 66919 Date last dose,NOT REPORTEDNoMetroHealth Parma Medical Center Comment on above:Performed By: #### LALO, TROPI, PRCAL, MYCM #### [facility] [address] [place] [address] 86974 Dose amount,NOT REPORTEDNoMetroHealth Parma Medical Center Comment on above:Performed By: #### LACREY, TROPI, PRCAL, MYCM #### [facility] [address] [place] [address] 03567 Time last dose,NOT REPORTEDNoMetroHealth [facility] Medical Center Comment on above:Performed By: #### LACREY, TROPI, PRCAL, MYCM #### [facility] [address] [place] [address] 45033 [phone]-Dcobugas Proteinon 43-80-3255DWU mass uynh106.1 mg/LHigh0.0-5.0 [facility] HospitalComment on above:Performed By: #### LALO, DAMIENI, PRCAL, MYCM #### [place] [address] CBC with Diffon 43-43-7962Ccb. Basophil0.00 k/uLNormal0.0-0.2MMountains Community HospitalComment on above:Performed By: #### LALO, TROPI, PRCAL, MYCM #### [facility] [address] [place] [address] 98203 Abs.Imm.Granulocyte0.13 k/uLNormal0.00-0.30[facility] HospitalComment on above:Performed By: #### LALO, TROPI, PRCAL, MYCM #### [place] [address] Abs.Neutrophil (Seg)4.35 k/uLNormal1.8-7.7[facility] HospitalComment on above:Performed By: #### LALO, TROPI, PRCAL, MYCM #### [address] [address] Basophils/100 WBC (Bld)0 %Normal0-2MMountains Community Hospital Comment on above:Performed By: #### LALO, TROPI, PRCAL, MYCM #### [address] [address]180 Eosinophils #/vol (Bld)0.06 10*3/uLNormal0.0-0.4[facility] HospitalComment on above:Performed By: #### LALO, TROPI, PRCAL, MYCM #### [facility] [address] [place] [address] 00206 Eosinophils/100 WBC (Bld)1 %Normal1-4[facility] HospitalComment on above:Performed By: #### LACDS, TROPI, PRCAL, MYCM #### [facility] [address] [place] [address] 79019 Immature granulocytes #/vol (Bld)2 %Fbxa1PboljDayton Osteopathic HospitalComment on above:Performed By: #### LACDS, TROPI, PRCAL, MYCM #### [facility] [address] [place] [address] 09531 Lymphocytes #/vol (Bld)1.32 10*3/uLNormal1.0-4.8[facility] HospitalComment on above:Performed By: #### LACDS, TROPI, PRCAL, MYCM #### [facility] [address] [place] [address] 39344 Lymphocytes/100 WBC (Bld)21 %Iah93-35FqurhDayton Osteopathic HospitalComment on above:Performed By: #### LACDS, TROPI, PRCAL, MYCM #### [facility] [address] [place] [address] 06855 Monocytes #/vol (Bld)0.44 10*3/uLNormal0.1-0.8[facility] HospitalComment on above:Performed By: #### LACDS, TROPI, PRCAL, MYCM #### [facility] [address] [place] [address] 63810 Monocytes/100 WBC (Bld)7 %Normal1-7[facility] Comment on above:Performed By: #### LACDS, TROPI, PRCAL, MYCM #### [facility] [address] [place] [address] 82422 Morphology Interp Rehan (Bld)ANISOCYTOSIS PRESENTNormalDayton Osteopathic HospitalComment on above:Result Comment: INCREASED BANDS PRESENT 1+ TEARDROPSPerformed By: #### LACDS, TROPI, PRCAL, MYCM #### [facility] [address] [place] [address] 25779 Neutrophil (Seg)69 %Feei53-00ZtsedDayton Osteopathic Hospital Comment on above:Performed By: #### LACDS, TROPI, PRCAL, MYCM #### [facility] [address] [place] [address] 64761 Erythrocyte distribution width Ratio (RBC)14.8 %High11.8-14.4[facility] HospitalComment on above:Performed By: #### LACDS, TROPI, PRCAL, MYCM #### [facility] [address] [place] [address] 07881 Hematocrit Volume Fraction (Bld)33.3 %Low36.3-47.1MMountains Community HospitalComment on above:Performed By: #### LACDS, TROPI, PRCAL, MYCM #### [facility] [address] [place] [address] 05341 Hemoglobin mass conc (Bld)10.2 g/dLLow11.9-15.1MMountains Community HospitalComment on above:Performed By: #### LACDS, TROPI, PRCAL, MYCM #### [facility] [address] [place] [address] 71505 MCH Entitic mass (RBC)28.3 tlRdjxjj11.2-33.5[facility] HospitalComment on above:Performed By: #### LACDS, TROPI, PRCAL, MYCM #### [facility] [address] [place] [address] 97200 MCHC mass conc (RBC)30.6 g/tVWvodqs55.4-34.8[facility] HospitalComment on above:Performed By: #### LACDS, TROPI, PRCAL, MYCM #### [facility] [address] [place] [address] 76426 MCV Entitic volume (RBC)92.2 oFZzjhkl91.6-102.9[facility] HospitalComment on above:Performed By: #### LACDS, TROPI, PRCAL, MYCM #### [facility] [address] [place] [address] 18799 NRBC Automated0.0 per 100 WBCNormal0.0[facility] HospitalComment on above:Performed By: #### LACDS, TROPI, PRCAL, MYCM #### [facility] [address] [place] [address] Platelet mean volume Entitic volume (Bld)11.5 fLNormal8.1-13.5[facility] HospitalComment on above:Performed By: #### LACDS, TROPI, PRCAL, MYCM #### [facility] [address] [place] [address] Platelets #/vol (Bld)149 10*3/wXWhysjw002-894BnzowDayton Osteopathic HospitalComment on above:Performed By: #### LACDS, TROPI, PRCAL, MYCM #### [facility] [address] [place] [address] 04969 RBC #/vol (Bld)3.61 10*6/uLLow3.95-5.11[facility] HospitalComment on above:Performed By: #### LACDS, TROPI, PRCAL, MYCM #### [facility] [address] [place] [address] 28148 WBC #/vol (Bld)6.3 10*3/uLNormal3.5-11.3MMountains Community HospitalComment on above:Performed By: #### LACDS, TROPI, PRCAL, MYCM #### [facility] [address] [place] [address] 11640 Auto Diff PerformedNOT REPORTEDSt. Louis Children'S HospitalalDayton Osteopathic HospitalComment on above:Performed By: #### LACDS, TROPI, PRCAL, MYCM #### [facility] [address] [place] [address] 04095 Platelets #/vol (Bld)NOT REPORTEDNoMetroHealth Parma Medical CenterComment on above:Performed By: #### LACDS, TROPI, PRCAL, MYCM #### [facility] [address] [place] [address] 64068 RBC morphology finding Nom (Bld)NOT REPORTEDNoMetroHealth Parma Medical CenterComment on above:Performed By: #### LACDS, TROPI, PRCAL, MYCM #### [facility] [address] [place] [address] 54729 WBC MorphologyNOT REPORTEDNoMetroHealth Parma Medical Center Comment on above:Performed By: #### LACDS, TROPI, PRCAL, MYCM #### [facility] [address] [place] [address] 20933 Comp Metabolic Pr/rfx MGon 08-17-2018(cont.)[facility] SystemComment on above:Result Comment: Average GFR for 30-39 years old: 107 mL/min/1.73sq m Chronic Kidney Disease: <60 mL/min/1.73sq m Kidney failure: <15 mL/min/1.73sq m eGFR calculated using average adult body mass. Additional eGFR calculator available at: http://www.ComparaMejor.com.com/multiple_crcl_2012.htmPerformed By: #### LACDS, TROPI, PRCAL, MYCM #### [facility] [address] [place] [address] 67826 Albumin mass conc2.4 g/dLLow3.5-5.2[facility] Comment on above:Performed By: #### LACDS, TROPI, PRCAL, MYCM #### [facility] [address] [place] [address] 21304 Albumin/Globulin mass ratio0.7 {ratio}Low1.0-2.5[facility] HospitalComment on above:Performed By: #### LACDS, TROPI, PRCAL, MYCM #### [facility] [address] [place] [address] 80749 Alkaline Phos76 U/WJjhizn68-571LqqjbDayton Osteopathic Hospital Comment on above:Performed By: #### LACDS, TROPI, PRCAL, MYCM #### [facility] [address] [place] [address] 45301 ALT enzyme act/vol25 U/LNormal5-33[facility] Comment on above:Performed By: #### LACDS, TROPI, PRCAL, MYCM #### [facility] [address] [place] [address] 43002 Anion gap molar conc8 mmol/LLow9-17[facility] Comment on above:Performed By: #### LACDS, TROPI, PRCAL, MYCM #### [facility] [address] [place] [address] 95371 AST enzyme act/vol26 U/LNormal<32[facility] Comment on above:Performed By: #### LACDS, TROPI, PRCAL, MYCM #### [facility] [address] [place] [address] 96888 Bilirubin Ql (U)0.34 mg/dLNormal0.3-1.2MMountains Community HospitalComment on above:Performed By: #### LACDS, TROPI, PRCAL, MYCM #### [facility] [address] [place] [address] 98481 Calcium mass conc7.8 mg/dLLow8.6-10.4[facility] HospitalComment on above:Performed By: #### LACDS, TROPI, PRCAL, MYCM #### [facility] [address] [place] [address] 03086 Chloride molar conc99 mmol/GYhysyu92-894QztccDayton Osteopathic HospitalComment on above:Performed By: #### LACDS, TROPI, PRCAL, MYCM #### [facility] [address] [place] [address] 46087 CO2 molar conc23 mmol/XGynrrg25-07DzmtlDayton Osteopathic Hospital Comment on above:Performed By: #### LACDS, TROPI, PRCAL, MYCM #### [facility] [address] [place] [address] 14923 Creatinine mass conc1.04 mg/dLHigh0.50-0.90[facility] HospitalComment on above:Performed By: #### LACDS, TROPI, PRCAL, MYCM #### [facility] [address] [place] [address] 81781 GFR, Amer>60Normal>60[facility]opathic HospitalComment on above:Performed By: #### LACDS, TROPI, PRCAL, MYCM #### [facility] [address] [place] [address] 73395 GFR,non Amer59 mL/minLow>60[facility] Comment on above:Performed By: #### LACDS, TROPI, PRCAL, MYCM #### [facility] [address] [place] [address] 60198 Glucose mass jndp422 mg/tQLrls88-42Kjnsx [facility] Comment on above:Performed By: #### LACDS, TROPI, PRCAL, MYCM #### [facility] [address] [place] [address] 48217 Potassium molar conc3.8 mmol/LNormal3.7-5.3MMountains Community HospitalComment on above:Performed By: #### LACDS, TROPI, PRCAL, MYCM #### [facility] [address] [place] [address] 87847 Protein mass conc5.8 g/dLLow6.4-8.3[facility] Comment on above:Performed By: #### LACDS, TROPI, PRCAL, MYCM #### [facility] [address] [place] [address] Sodium molar crsq841 mmol/ENga519-614FhdqhDayton Osteopathic HospitalComment on above:Performed By: #### LACDS, TROPI, PRCAL, MYCM #### [facility] [address] [place] [address] 14995 Urea nitrogen mass conc15 mg/dLNormal6-20Day[facility] Osteopathic HospitalComment on above:Performed By: #### LACDS, TROPI, PRCAL, MYCM #### [facility] [address] [place] [address] 00171 BUN/CRE RatioNOT REPORTEDNormal9-20[facility] Comment on above:Performed By: #### LACDS, TROPI, PRCAL, MYCM #### [facility] [address] [place] [address] 48272 Staging:NOT REPORTEDNormalDayton Osteopathic HospitalComment on above:Performed By: #### LACDS, TROPI, PRCAL, MYCM #### [address] [address] Magnesiumon 04-16-6455Pygbwjgul mass conc2.2 mg/dLNormal1.6-2.6 [facility] HospitalComment on above:Performed By: #### LACDS, TROPI, PRCAL, MYCM #### [facility] [address] [place] [address]116 Procalcitoninon 06-71-9007Zzvrnvq mass conc1.48 ng/mLHigh<0.09Day[facility] Osteopathic HospitalComment on above:Result Comment: Suspected Sepsis: 0.09-0.49 [...] entered into the Change in Procalcitonin Calculator ([email or web address].VitaSensis) to determine the patient's Mortality Risk PrognosisPerformed By: #### GRACE MAY PRCAL, MYCM #### [facility] [address] [place] [address] Sedimentation Rateon 94-34-0918Iwvxaqwjidvdo Rate97 mmHigh0-20Day[facility] Osteopathic HospitalComment on above:Performed By: #### GRACE MAY PRCAL, MYCM #### [facility] [address] [place] [address] CBC with Diffon 35-31-0075Iqs. Basophil0.00 k/uLNormal0.00-0.20 [facility] HospitalComment on above:Performed By: #### GRACE MAY PRCAL, JAZMYN #### [facility] [address] [place] [address] Abs.Imm.Granulocyte0.11 k/uLNormal0.00-0.30Day[facility] Osteopathic HospitalComment on above:Performed By: #### GRACE MAY PRCAL, MYCM #### [facility] [address] [place] [address] Abs.Neutrophil (Seg)4.60 k/uLNormal1.50-8.10Day[facility] Osteopathic HospitalComment on above:Performed By: #### GRACE MAY PRCAL, MYCM #### [facility] [address] [place] [address] 94656 Basophils/100 WBC (Bld)0 %Normal0-2MMountains Community Hospital Comment on above:Performed By: #### LACDS, TROPI, PRCAL, MYCM #### [address] [address] Eosinophils #/vol (Bld)0.00 10*3/uLNormal0.00-0.44Day[facility] Osteopathic HospitalComment on above:Performed By: #### LACDS, TROPI, PRCAL, MYCM #### [facility] [address] [place] [address]251 Eosinophils/100 WBC (Bld)0 %Low1-4[facility] Comment on above:Performed By: #### LACDS, TROPI, PRCAL, MYCM #### [facility] [address] [place] [address] 8[address]27 Immature granulocytes #/vol (Bld)2 %Cetx3LhyajDayton Osteopathic HospitalComment on above:Performed By: #### LACDS, TROPI, PRCAL, MYCM #### [facility] [address] [place] [address] 21605 Lymphocytes #/vol (Bld)0.67 10*3/uLLow1.10-3.70[facility] HospitalComment on above:Performed By: #### LACDS, TROPI, PRCAL, MYCM #### [facility] [address] [place] [address] 16980 Lymphocytes/100 WBC (Bld)12 %Wsc18-94BmfumDayton Osteopathic HospitalComment on above:Performed By: #### LACDS, TROPI, PRCAL, MYCM #### [facility] [address] [place] [address] 83202 Monocytes #/vol (Bld)0.22 10*3/uLNormal0.10-1.20[facility] HospitalComment on above:Performed By: #### LACREY, TROPI, PRCAL, MYCM #### [facility] [address] [place] [address] 27594 Monocytes/100 WBC (Bld)4 %Normal3-12Day[facility] Osteopathic HospitalComment on above:Performed By: #### LACDS, TROPI, PRCAL, MYCM #### [facility] [address] [place] [address]35 Morphology Interp Rehan (Bld)ANISOCYTOSIS PRESENTNormalDayton Osteopathic HospitalComment on above:Result Comment: INCREASED BANDS PRESENT 1+ TEARDROPSPerformed By: #### LACREY, TROPI, PRCAL, MYCM #### [facility] [address] [place] [address] 68181 Neutrophil (Seg)82 %Yzxf10-65KkddqDayton Osteopathic Hospital Comment on above:Performed By: #### LACREY, TROPI, PRCAL, MYCM #### [facility] [address] [place] [address]60 Erythrocyte distribution width Ratio (RBC)15.1 %High11.8-14.4Day[facility] Osteopathic HospitalComment on above:Performed By: #### LACDS, TROPI, PRCAL, MYCM #### [facility] [address] [place] [address] 06054 Hematocrit Volume Fraction (Bld)34.1 %Low36.3-47.1MMountains Community HospitalComment on above:Performed By: #### LACDS, TROPI, PRCAL, MYCM #### [facility] [address] [place] [address] 48549 Hemoglobin mass conc (Bld)10.0 g/dLLow11.9-15.1MercSt. Vincent's Medical Center Clay CountySt. Jo Medical CenterComment on above:Performed By: #### LACDS, TROPI, PRCAL, MYCM #### [facility] [address] [place] [address] MCH Entitic mass (RBC)28.7 oyZcxsyb73.2-33.5Day[facility] Osteopathic HospitalComment on above:Performed By: #### LACDS, TROPI, PRCAL, MYCM #### [facility] [address] [place] [address] MCHC mass conc (RBC)29.3 g/xFWsncay34.4-34.8Day[facility] Osteopathic HospitalComment on above:Performed By: #### LACDS, TROPI, PRCAL, MYCM #### [facility] [address] [place] [address] MCV Entitic volume (RBC)98.0 xPPvfnlx84.6-102.9Day[facility] Osteopathic HospitalComment on above:Performed By: #### LACDS, TROPI, PRCAL, MYCM #### [place] [address] NRBC Automated0.0 per 100 WBCNormal0.0Day[facility] Osteopathic HospitalComment on above:Performed By: #### LACDS, TROPI, PRCAL, MYCM #### [place] [address] Platelet mean volume Entitic volume (Bld)11.1 fLNormal8.1-13.5Day[facility] Osteopathic HospitalComment on above:Performed By: #### LACDS, TROPI, PRCAL, MYCM #### [place] [address] Platelets #/vol (Bld)119 10*3/wALby437-213BgyhwDayton Osteopathic HospitalComment on above:Performed By: #### LACDS, TROPI, PRCAL, MYCM #### [facility] [address] [place] [address] 57297 RBC #/vol (Bld)3.48 10*6/uLLow3.95-5.11[facility] Medical CenterComment on above:Performed By: #### LACDS, TROPI, PRCAL, MYCM #### [facility] [address] [place] [address] 94753 WBC #/vol (Bld)5.6 10*3/uLNormal3.5-11.3[facility] Medical CenterComment on above:Performed By: #### LACDS, TROPI, PRCAL, MYCM #### [facility] [address] [place] [address]30 Auto Diff PerformedNOT REPORTEDAvita Health SystemComment on above:Performed By: #### LACDS, TROPI, PRCAL, MYCM #### [facility] [address] [place] [address] 93104 Platelets #/vol (Bld)NOT REPORTEDAvita Health SystemComment on above:Performed By: #### LACDS, TROPI, PRCAL, MYCM #### [facility] [address] [place] [address] 03915 RBC morphology finding Nom (Bld)NOT REPORTEDAvita Health SystemComment on above:Performed By: #### LACDS, TROPI, PRCAL, MYCM #### [facility] [address] [place] [address]508 WBC MorphologyNOT REPORTEDAvita Health System Comment on above:Performed By: #### LACDS, TROPI, PRCAL, MYCM #### [facility] [address] [place] [address] HEAD WO CONTRASTon 72-62-7835CI HEAD WO CONTRASTEXAMINATION: CT OF THE HEAD [...] Signed by: Erica Angeles MD 08/16/18 Final resultNormalDayton Osteopathic HospitalCalcium, Ionicon 08-16-2018 Calcium mass conc0.99 mmol/LLow1.13-1.33Day[facility] Osteopathic HospitalComment on above:Performed By: #### LACDS, TROPI, PRCAL, MYCM #### [facility] [address] [place] [address]608 Comp Metabolic Pr/rfx MGon 08-16-2018(cont.)NormalDayton Osteopathic HospitalComment on above:Result Comment: Average GFR for 30-39 years old: 107 mL/min/1.73sq m Chronic Kidney Disease: <60 mL/min/1.73sq m Kidney failure: <15 mL/min/1.73sq m eGFR calculated using average adult body mass. Additional eGFR calculator available at: http://www.ComparaMejor.com.com/multiple_crcl_2012.htmPerformed By: #### PT, CMPX, MG, CDP #### [facility] [place] [address] Albumin mass conc2.3 g/dLLow3.5-5.2[facility] Comment on above:Performed By: #### PT, CMPX, MG, CDP #### [facility] [address] [place] [address] 01698 Albumin/Globulin mass ratio0.7 {ratio}Low1.0-2.5Day[facility] Osteopathic HospitalComment on above:Performed By: #### PT, CMPX, MG, CDP #### [facility] [address] [place] [address] Alkaline Phos67 U/CFhgeyt33-262YaelbDayton Osteopathic Hospital Comment on above:Performed By: #### PT, CMPX, MG, CDP #### [facility] [address] [place] [address] 46732 ALT enzyme act/vol33 U/LNormal5-33[facility] Comment on above:Performed By: #### PT, CMPX, MG, CDP #### [facility] [address] [place] [address] Anion gap molar conc11 mmol/LNormal9-17Day[facility] Osteopathic HospitalComment on above:Performed By: #### PT, CMPX, MG, CDP #### [facility] [address] [place] [address] 03901 AST enzyme act/vol41 U/LHigh<32[facility] Comment on above:Performed By: #### PT, CMPX, MG, CDP #### [facility] [address] [place] [address] Bilirubin Ql (U)0.40 mg/dLNormal0.3-1.2MMountains Community HospitalComment on above:Performed By: #### PT, CMPX, MG, CDP #### [facility] [address] [place] [address] 82075 Calcium mass conc7.3 mg/dLLow8.6-10.4[facility]opathic HospitalComment on above:Performed By: #### PT, CMPX, MG, CDP #### [facility] [address] [place] [address] 57061 Chloride molar jkxe534 mmol/VSmzdtt97-310QncddDayton Osteopathic HospitalComment on above:Performed By: #### PT, CMPX, MG, CDP #### [facility] [address] [place] [address] 88966 CO2 molar conc18 mmol/ZObh09-91JpppzDayton Osteopathic Hospital Comment on above:Performed By: #### PT, CMPX, MG, CDP #### [facility] [address] [place] [address] 57910 Creatinine mass conc1.09 mg/dLHigh0.50-0.90Day[facility]opathic HospitalComment on above:Performed By: #### PT, CMPX, MG, CDP #### [facility] [address] [place] [address] GFR, Amer>60Normal>60Day[facility] Osteopathic HospitalComment on above:Performed By: #### PT, CMPX, MG, CDP #### [facility] [address] [place] [address] GFR,non Amer56 mL/minLow>60[facility] Comment on above:Performed By: #### PT, CMPX, MG, CDP #### [facility] [address] [place] [address] 08295 Glucose mass wslj673 mg/fJAyvq07-93KgusdMountains Community Hospital Comment on above:Performed By: #### PT, CMPX, MG, CDP #### [facility] [address] [place] [address] 89269 Potassium molar conc3.6 mmol/LLow3.7-5.3MMountains Community HospitalComment on above:Performed By: #### PT, CMPX, MG, CDP #### [facility] [address] [place] [address] 19854 Protein mass conc5.5 g/dLLow6.4-8.3MMountains Community Hospital Comment on above:Performed By: #### PT, CMPX, MG, CDP #### [facility] [address] [place] [address] 30306 Sodium molar wepc347 mmol/HZfp283-908IuvlmDayton Osteopathic HospitalComment on above:Performed By: #### PT, CMPX, MG, CDP #### [facility] [address] [place] [address] 42999 Urea nitrogen mass conc17 mg/dLNormal6-20[facility] HospitalComment on above:Performed By: #### PT, CMPX, MG, CDP #### [facility] [address] [place] [address] 00587 BUN/CRE RatioNOT REPORTEDNoal9-20[facility] Comment on above:Performed By: #### PT, CMPX, MG, CDP #### [facility] [address] [place] [address] 98014 Staging:NOT REPORTEDNormalDayton Osteopathic HospitalComment on above:Performed By: #### PT, CMPX, MG, CDP #### [facility] [address] [place] [address] 91146 Lactic Acid,Whole Blon 30-30-6901Keqoqb Acid,Whole Bl1.2 mmol/L Normal0.7-2.1MMountains Community HospitalComment on above:Performed By: #### LACDS, TROPI, PRCAL, MYCM #### [facility] [address] [place] [address] 58471 Lactic Acid,Whole Bl1.2 mmol/LNormal0.7-2.1[facility] Medical CenterComment on above:Performed By: #### LACWB #### [address] [address] Magnesiumon 85-28-3951Jellbqrdl mass conc2.0 mg/dLNormal1.6-2.6 [facility] HospitalComment on above:Performed By: #### LACDS, TROPI, PRCAL, MYCM #### [address] [address] Mycoplasma Ab,IgMon 06-61-1469Nwqtqzvbjo Ab,IgM0.22Normal<0.91Day[facility] Osteopathic HospitalComment on above:Result Comment: Reference Range: <=0.90 Negative 0.91-1.09 Equivocal >=1.10 PositivePerformed By: #### LACDS, TROPI, PRCAL, MYCM #### [address] [address] PTon 78-46-1496ZAX Coag RelTime (PPP)1.0 {INR}NormalDayton Osteopathic HospitalComment on above:Result Comment: Therapeutic Range: Moderate Anticoagulant Intensity: INR = 2.0-3.0 High Anticoagulant Intensity: INR = 2.5-3.5Performed By: #### PT, CMPX, MG, CDP #### [address] [address] Prothrombin time (PT) Coag time (PPP)11.0 sNormal9.0-12.0Day[facility] Osteopathic HospitalComment on above:Performed By: #### PT, CMPX, MG, CDP #### [address] [address] Troponinon 51-56-7747Vfssivpz I.cardiac mass concNormalDayton Osteopathic HospitalComment on above:Result Comment: Reference Range: <0.03 [...] information for diagnosis.Performed By: #### TROPI #### [address] [address] Troponin I.cardiac mass concng/mLNormal<0.03Day[facility] Osteopathic HospitalComment on above:Result Comment: Troponin T results cannot be compared to Troponin-I results.Performed By: #### TROPI #### [address] [address] XR CHEST (2 VW)on 38-61-8583HD CHEST (2 VW)EXAMINATION: TWO VIEWS OF THE [...] Signed by: Noe Mitchell MD 08/16/18 Final resultNormalMerLoma Linda University Medical CenterLactate, Sepsison 08-15-2018 Lactic Acid,Sep Wbld3.5 mmol/LHigh0.5-1.9[facility] HospitalComment on above:Performed By: #### LACDS, TROPI, PRCAL, MYCM #### [address] [address] Lactic Acid, SepsisNOT REPORTEDNormal0.5-1.9[facility] HospitalComment on above:Performed By: #### LACDS, TROPI, PRCAL, MYCM #### [address] [address] Legionella Ag, Uron 64-27-9475Hvoaigpavl Ag, UrSpecimen Description .CLEAN CATCH URINE Special [...] levels of this test. Report Status FINAL 08/15/2018NoMetroHealth Parma Medical CenterComment on above:Performed By: #### ULAG #### [facility] [address] [place] [address] 23469 Procalcitoninon 38-62-9318Ysffwyo mass conc3.39 ng/mLHigh<0.09[facility] HospitalComment on above:Result Comment: Suspected Sepsis: 0.09-0.49 [...] entered into the Change in Procalcitonin Calculator (www.[email or web address]-zayptzyfjt.VitaSensis) to determine the patient's Mortality Risk PrognosisPerformed By: #### LACDS, TROPI, PRCAL, MYCM #### [facility] [place], [place] [id number] Strep pneum Ag,CSF/Uron 65-47-5237Pbcbp pneum Ag,CSF/UrSpecimen Description .CLEAN CATCH URINE Special Requests NOT REPORTED Direct Exam NEGATIVE: Strep pneumoniae antigen not detected Report Status FINAL 08/15/2018Avita Health SystemComment on above:Performed By: #### SPAG #### [facility] [address] [place] [address] [phone] Troponinon 02-56-2937Stedezek I.cardiac mass concng/mLNormal<0.03 [facility] HospitalComment on above:Result Comment: Troponin T results cannot be compared to Troponin-I results.Performed By: #### LACDS, TROPI, PRCAL, MYCM #### [facility] [address] [place], [place] [phone] Troponin I.cardiac mass concNormalMercy [facility] Comment on above:Result Comment: Reference [...] By: #### LACDS, TROPI, PRCAL, MYCM #### [facility] [address] [place], [place] [id number] Urinalysison 55-30-5964Caaneuvkv, UrineNegativeInvalid Interpretation CodeNEG;NEGATIVEMERCY HEALTH ST. RITA'S MEDICAL CENTERBlood, UrineModerate AbnormalNEG;NEGATIVEMERCY HEALTH ST. RITA'S MEDICAL CENTERInterpretation and review of laboratory resultsAbnormalInvalid Interpretation CodeMERCY HEALTH ST. RITA'S MEDICAL CENTERNitrite, UrineNegativeInvalid Interpretation CodeNEG;NEGATIVEMERCY HEALTH ST. RITA'S MEDICAL CENTERProtein, UrineNegativeInvalid Interpretation CodeNEG;NEGATIVE mg/dLMERCY HEALTH ST. RITA'S MEDICAL CENTERRBCs, Urine1 /HPFInvalid Interpretation Code0 - 5[facility] LIMAquamous Epithelial< 1Invalid Interpretation Code0 - 40 /HPFAkron Children's Hospital, bacteria in sedimentRare Invalid Interpretation CodeNS;RARE /HPFMERCY HEALTH ST. RITA'S MEDICAL CENTERUrine, characterHazyInvalid Interpretation CodeAkron Children's Hospital, colorYellowInvalid Interpretation CodeAkron Children's Hospital, glucose presenceNegativeInvalid Interpretation CodeNEG;NEGATIVE mg/dLAkron Children's Hospital, ketones presenceNegativeInvalid Interpretation Code NEG;NEGATIVE mg/dLMERCY HEALTH ST. RITA'S MEDICAL CENTERUrine, leukocyte esterase presenceSmallAbnormalNegativeMERCY HEALTH ST. RITA'S MEDICAL CENTERUrine, pH6.0 [pH] Invalid Interpretation Code4.5 - 8.0[facility] RITA'S MEDICAL CENTERUrine, specific gravity1.014 1Invalid Interpretation Code1.003 - 1.029MER[facility] RITA'S MEDICAL CENTERUrobilinogen, Urine< 2.0Invalid Interpretation Code<2 mg/dLMERCY HEALTH ST. RITA'S MEDICAL CENTERWBCs, Urine6 /HPFHigh0 - 5[facility]'S MEDICAL CENTERCBC and Differentialon 18-32-7551Qljvnyqdh9.7 %Invalid Interpretation CodeMERCY HEALTH ST. RITA'S MEDICAL CENTERBasophils0.1 K/mcLInvalid Interpretation Code0 - 0.2[facility] RITA'S MEDICAL CENTEREosinophils0.2 K/mcLInvalid Interpretation Code0 - 0.[address] [facility] MEDICAL CENTERErythrocytes (RBC)3.97 M/mcLInvalid Interpretation Code3.7 - 5.0[facility] RITA'S MEDICAL CENTERHematocrit (HCT)35.7 %Invalid Interpretation Code34.4 - 44.8 %[facility]'S MEDICAL CENTERHemoglobin (HGB) 12.2 g/dLInvalid Interpretation Code11.6 - 15.4 g/dLMERCY HEALTH ST. RITA'S MEDICAL CENTERInterpretation and review of laboratory resultsAbnormalInvalid Interpretation CodeMERCY HEALTH ST. RITA'S MEDICAL CENTERLymphocytes2.1 K/mcLInvalid Interpretation Code1.0 - 3.7[facility]. [facility]AB[facility] HOSPITALH30.6 pgInvalid Interpretation Code27.9 - 33.[address] RITA[address]S MEDICAL CENTERMCHC34.0 g/dL Invalid Interpretation Code33.1 - 35.1 g/dLMERCY HEALTH ST. RITA'S MEDICAL CENTERMCV89.8 fLInvalid Interpretation Code82.6 - 98.9[facility]'S MEDICAL CENTERMonocytes 0.6 K/mcLInvalid Interpretation Code0.1 - 0.6[facility] Neutrophils6.6 K/mcLInvalid Interpretation Code1.2 - 6.9[facility]'S MEDICAL CENTERPlatelet mean volume (PMV)8.6 fLInvalid Interpretation Code7.0 - 10.[address] [facility] MEDICAL CENTERPlatelets196 K/mcLInvalid Interpretation Vwbv245 - 402OHMAGRUDER MEMORIAL HOSPITALRDW-CA15.0 %High10 - 14.4 %[facility] LIMAegmented Neut69.6 %Invalid Interpretation CodeCHELSEA VILLE [address] suppressor/100 cells1.8 10*3/uLInvalid Interpretation CodeCHELSEA VILLE [address] suppressor/100 cells21.8 10*3/uLInvalid Interpretation Code [place] [address] suppressor/100 cells6.1 10*3/uLInvalid Interpretation CodeMERCY HEALTH ST. RITA'S MEDICAL CENTERWBC (Leukocytes)9.5 K/mcLInvalid Interpretation Code3.4 - 10.6MER[facility] RITA'S MEDICAL CENTERComprehensive Metabolic Panelon 35-45-9665Euljrdm aminotransferase (ALT)18 U/LInvalid Interpretation Code14 - 65 U/[facility] ANDERSONAlbumin3.1 g/dLLow3.2 - 5.2 g/dLMERCY HEALTH ST. RITA'S MEDICAL CENTERAlkaline phosphatase (ALP)78 U/LInvalid Interpretation Code40 - 140 U/[facility] ANDERSONAspartate aminotransferase (AST)7 U/LInvalid Interpretation Code0 - 45 U/[facility] ANDERSONCalcium8.6 mg/dLInvalid Interpretation Code8.4 - 10.2 mg/dL [facility] MEDICAL CENTERChloride106 mmol/LInvalid Interpretation Code98 - 108 mmol/[facility] ANDERSONCO227 mmol/LInvalid Interpretation Code21 - 32 mmol/[facility] ANDERSONCreatinine1.13 mg/dLHigh0.4 - 1.1 mg/dL [facility] MEDICAL CENTEReGFR (black)mL/min/{1.73_m2}Invalid Interpretation Codeml/min/1.73sq.[facility] Municipal HospitaleGFR (non-black)54 mL/min/{1.73_m2}Low>60[facility]'S MEDICAL CENTERGlucose113 mg/yRQehh59 - 99 mg/dLMERCY HEALTH ST. RITA'S MEDICAL CENTERInterpretation and review of laboratory resultsAbnormalInvalid Interpretation CodeMERCY HEALTH ST. RITA'S MEDICAL CENTERPotassium 3.7 mmol/LInvalid Interpretation Code3.5 - 5.1 mmol/[facility] ANDERSONProtein6.8 g/dLInvalid Interpretation Code6 - 8 g/dLKINDRED HOSPITAL LIMAodium140 mmol/LInvalid Interpretation Rama553 - 145 mmol/[facility] ANDERSONUrea dqeyxkcf82 mg/dLInvalid Interpretation Code8 - 25 mg/dL [facility]S MEDICAL CENTERUrine, bilirubin presence0.4 mg/dLInvalid Interpretation Code0.3 - 1.2 mg/dLMERCY HEALTH ST. RITA'S MEDICAL CENTERLipaseon 34-49-2948Rytwpm711 U/LInvalid Interpretation Code73 - 393 U/[facility] Vital Signs Date TimeVital SignValuePerforming JztixowjlBngsmzto30-35-8979 11:47-0400Body cwryol468.5 cmJennie Van MENTAL HEALTH COUNSELOR-INCLUSION TEACHER Work Phone: [place] [phone] 11:47-0400Body mass index (BMI) [Ratio]38.41 kg/f0SkhmadbJennie Van MENTAL HEALTH COUNSELOR-INCLUSION TEACHER Work Phone: [place] [phone] 11:47-0400Body vopqrh75.25 kgJecarlos Van MENTAL HEALTH COUNSELOR-INCLUSION TEACHER Work Phone: [place] [phone] 11:47-0400Diastolic blood ejxtbamh97 mm[Hg]Jennie Van MENTAL HEALTH COUNSELOR-INCLUSION TEACHER Work Phone: [place] [phone] 11:47-0400Respiratory rate18 /minJesssandeep Van MENTAL HEALTH COUNSELOR-INCLUSION TEACHER Work Phone: [place] [phone] 11:47-4968XoW0% (BldA) [Mass fraction]98 %Jennie Van MENTAL HEALTH COUNSELOR-INCLUSION TEACHER Work Phone: [place] [phone] 11:47-0400Systolic blood mm[Hg]Jennie Van MENTAL HEALTH COUNSELOR-INCLUSION TEACHER Work Phone: [facility] HospitalAreoleuusq78-74-0821 12:32-0400Body znwdic280.5 Bihristophmichael Sánchez DPM Work Phone: [facility] HospitalIqqwqfcxip58-51-3096 12:32-0400Body mass index (BMI) [Ratio]38.41 kg/z7Lrvpufnhkkz Bohach DPM Work Phone: [facility] HospitalMmmslrclkt53-09-3588 12:32-0400Body .25 kgChristopher Bohach DPM Work Phone: [facility] HospitalSsqveqzque90-32-8518 12:32-0400Diastolic blood kgvmdarc66 mm[Hg]Christopher Bohach DPM Work Phone: [facility] HospitalBukqwcdjmh46-20-5927 12:32-0400Heart gbih847 /min Christopher Bohach DPM Work Phone: [facility] HospitalKecoobgedn41-02-4029 12:32-0400Systolic blood xexbjmpp000 mm[Hg]Christopher Bohach DPM Work Phone: [facility] HospitalKgordiqxon40-22-9771 16:21-0400Body .5 cmChristopher Bohach DPM Work Phone: [facility] HospitalMivgfedwip61-39-4188 16:21-0400Body mass index (BMI) [Ratio]38.41 kg/u9Rapwdxthoyt Bohach DPM Work Phone: [facility] HospitalEexfvoafdo18-48-3839 16:21-0400Body .25 kgChristopher Bohach DPM Work Phone: [facility] HospitalGwlojnwvsd17-06-1432 16:21-0400Diastolic blood hxddidwp15 mm[Hg]Christopher Bohach DPM Work Phone: [facility] HospitalWomfntvzbt74-41-7901 16:21-0400Heart rate89 /min Christopher Bohach DPM Work Phone: [facility] HospitalObfesxngyf73-98-8172 16:21-0400Systolic blood vozzzalw946 mm[Hg]Christopher Bohach DPM Work Phone: [facility] HospitalZbkqtjkmrl81-53-3037 23:15-0400Diastolic blood bafsohar69 mm[Hg]Severo Case MD Work Phone: [phone] [facility] [facility] HospitalWcpqtq80-70-0307 23:15-0400Heart rate74 /minSevero Case MD Work Phone: [phone] [facility] [facility] HospitalBtuhwt00-87-7418 23:15-0400 Respiratory rate16 /minSevero Case MD Work Phone: [phone] [facility]07-01-2025 23:15-3832EnI4% (BldA) [Mass fraction]97 %Severo Case MD Work Phone: [phone] [facility]07-01-2025 23:15-0400Systolic blood qxvsfhsa791 mm[Hg]Severo Case MD Work Phone: [phone] [facility]07-01-2025 21:24-0400Body zfygpr820.4 cmSevero Case MD Work Phone: [phone] [facility]07-01-2025 21:24-0400Body mass index (BMI) [Ratio]41.99 kg/m4YvetuuSevero Case MD Work Phone: [phone] [facility] [facility] HospitalUbvjiz37-39-1169 21:24-0400Body ywotdr38.52 kgSevero Case MD Work Phone: [phone] [facility]07-01-2025 21:15-0400Body ingtsbnzmhv67 [degF]Severo Case MD Work Phone: [phone] [facility]06-10-2025 12:02-0400Body joukdd515.5 cmLynn Block MD Work Phone: [facility] HospitalTvuhewipri35-78-6402 12:02-0400Body mass index (BMI) [Ratio]38.41 kg/m2Lynn Block MD Work Phone: [facility] HospitalYartuisdlp80-91-4511 12:02-0400Body .25 kgLynn Block MD Work Phone: [phone] [place], [place] [address]Abvecgcsku86-25-0613 13:00-0500Body tkgdyl312.5 cmLynn Block MD Work Phone: [facility] HospitalPbmwrzfrga89-53-7582 13:00-0500Body mass index (BMI) [Ratio]38.41 kg/m2Lynn Block MD Work Phone: [facility] HospitalCkxgicczbr00-64-8601 13:00-0500Body .25 kgLynn Block MD Work Phone: [phone] [place], [place] [address]Tjwvsbxmab42-91-4657 11:31-0500Body jyvnpc094.5 cmFealli Yusra BUSINESS MANAGEMENT SPECIALIST Work Phone: [phone] [place], [place] [address]Homkfcpino63-15-2328 11:31-0500Body mass index (BMI) [Ratio]37.9 kg/s9Ixyfomf Megannagel BUSINESS MANAGEMENT SPECIALIST Work Phone: [phone] [place], [place] [address]Fdtiatrrvv54-38-2156 11:31-0500Body ecovxl98.98 kgFemadelynia Megannagel BUSINESS MANAGEMENT SPECIALIST Work Phone: [phone] [place], [place] [address]Nupehxkpea55-51-7232 11:31-0500Diastolic blood emdpfucs29 mm[Hg]Fozia Megannagel BUSINESS MANAGEMENT SPECIALIST Work Phone: [phone] [place], [place] [address]Jckguxncvk48-44-1295 11:31-0500Systolic blood pykqhrlm079 mm[Hg]Fozia Megannagel BUSINESS MANAGEMENT SPECIALIST Work Phone: [phone])540-[address] [place], [place] [address]Knyqtszmwg19-32-7070 09:42-0500Body yaxere124.5 Jimmy Adair MD Work Phone: [phone]eejvx74-05-3688 09:42-0500Body mass index (BMI) [Ratio]38.23 kg/m2Dimas Adair MD Work Phone: [phone]nzams89-25-1633 09:42-0500Body xvtgiittukq71.29 [degF]Dimas Adair MD Work Phone: [phone]szxbn24-83-3645 09:42-0500Body .8 kgDimas Adair MD Work Phone: [phone]vyzqj09-88-2656 11:30-0500Body glpeit587.5 cm Fozia Meng BUSINESS MANAGEMENT SPECIALIST Work Phone: [facility] HospitalGftxwnokaa79-56-8907 11:30-0500Body mass index (BMI) [Ratio]39.91 kg/n8ZqnujtkFozia Meng BUSINESS MANAGEMENT SPECIALIST Work Phone: [facility] HospitalYyonrkvrfk78-54-1423 11:30-0500Body .97 kgFozia Meng BUSINESS MANAGEMENT SPECIALIST Work Phone: [facility] HospitalPjtpgjnkbl21-41-1866 11:30-0500Diastolic blood cravjwav51 mm[Hg]Fozia Meng BUSINESS MANAGEMENT SPECIALIST Work Phone: [facility] HospitalWmamfnzznu61-33-9024 11:30-0500Systolic blood jgnwirqp356 mm[Hg]Fozia Meng BUSINESS MANAGEMENT SPECIALIST Work Phone: [facility] HospitalQoafqwbdkc58-26-5458 10:09-0400Body jwydxc998.5 cmTrace Casas MD Work Phone: [facility] HospitalXfljpriein37-88-2800 10:09-0400Body mass index (BMI) [Ratio]38.96 kg/j4AdlyqqoTrace Casas MD Work Phone: [facility] HospitalQxaniarjsz01-17-0990 10:09-0400Body jccyjw90.62 kgTrace Casas MD Work Phone: [facility] HospitalRnssndefgz63-76-3532 10:09-0400Diastolic blood kvrmoxwi24 mm[Hg]Trace Casas MD Work Phone: [facility] HospitalQepofiotvc24-03-5976 10:09-0400Systolic blood spyepwmv907 mm[Hg]Trace Casas MD Work Phone: [facility] HospitalYhpiujnmwg68-78-1345 14:20-0400Body .5 cmNicole Ginger DO Work Phone: [facility] LouisDvhfpnugjf64-79-9396 14:20-0400Body mass index (BMI) [Ratio]38.41 kg/v4Ehtltt Ginger DO Work Phone: [facility] LouisPecufaltvt17-73-2072 14:20-0400Body .25 kgNicole Ginger DO Work Phone: [facility] LouisSjsqndszqy68-88-0561 14:20-0400Diastolic blood mm[Hg]Cheryl Ginger DO Work Phone: [facility] LouisNpnuxjjdvb01-19-3648 14:20-0400Heart rate83 /min Cheryl Ginger DO Work Phone: [facility] LouisHzxhvxgxox68-54-0404 14:20-6460WdL5% (BldA) [Mass fraction]97 %Cheryl Ginger DO Work Phone: noMercy Hospital St. LouisRtmpbubbfm25-15-6467 14:20-0400Systolic blood adocjmmq323 mm[Hg]Cheryl Ginger DO Work Phone: [facility] HospitalWnsrdcovkq55-09-4394 14:44-0400Body temperature 98.49 [degF]MASSIMO Shook DPM Work Phone: [phone]hegyv59-00-5745 14:44-0400Diastolic blood tqavewty69 mm[Hg]MASSIMO Shook DPM Work Phone: [phone]ewrdq73-91-6721 14:44-0400Heart rate94 /minMASSIMO Shook DPM Work Phone: [phone]lyhhy52-53-8112 14:44-0400Systolic blood pressure 139 mm[Hg]MASSIMO Shook DPM Work Phone: [phone]hzokx56-03-9531 09:36-0400Body .5 cmMwhz Education Work Phone: bon [facility]09-28-2022 09:36-0400Body mass index (BMI) [Ratio]38.67 kg/m2Mwhz Education Work Phone: bon Soysuper09-28-2022 09:36-0400Body gyolba17.89 kgMwhz Education Work Phone: bon [facility]12-13-2020 20:53-0500BMI (Body Mass Index)39.32 kg/e9ZiosbaytrvlCor[place], [place]12[place] 20:53-0500Body Xnczvajixqk07.5 [degF][place] 09-16-2020 20:53-0500Body tngbiu87.52 kgCor[place], [place] 09-16-2020 20:53-0500BP Jlanfdcyo577 mm[Hg][place] 09-16-2020 20:53-0500BP Gzsavdqd771 mm[Hg][place] 09-16-2020 20:53-0552Uwexxg325.5 [place] 09-16-2020 20:53-0500Pulse (Heart Rate)99 /min[place], [place]12[place]-2020 20:53-0500Pulse Ahnaknmv48 %[place] 09-16-2020 20:53-0500Respiratory Rate18 /[facility] [place] Encounters Encounter DateEncounter TypeCare ProviderFacilityStart: 08-02-2025 End: 92-31-7372kvyqgssuofZJYVZChillicothe VA Medical Centertart: 08-02-2025 End: 44-71-1769Ksrxsmbxfv hospital visit by physicianPlainview Hospitaluzair Laboratory Schedule [facility] LaboratoryComment on above:Stage 3a chronic kidney disease (HCC); Pre-diabetesStart: 07-29-2025 End: 02-53-4841DmozlbVbqbqpsdhmSara Allen NP Work Phone: NOAF Murchison NeurologyComment on above:Idiopathic progressive polyneuropathy; Non-seasonal allergic rhinitis due to pollenStart: 07-21-2025 End: 13-82-0107rjdlntpgmjYBQDRNPBRoper Hospitaltart: 07-21-2025 End: 12-97-3680Faugmoziub [facility]Sam[facility] Laboratory Schedule [facility] LaboratoryComment on above:ArrivedStart: 06-12-2025 End: 41-01-6520kgehznscanVGOYCDFUDM MILLERMercy Willard HospitalStart: 06-12-2025 End: 62-96-4874Pkskrxpgdo hospital visit by physicianKendall Laboratory Schedule MWHZ LaboratoryComment on above:ArrivedStart: 05-24-2025 End: 68-11-3056Rctush LensARheetTreatFeed MENTAL HEALTH COUNSELOR-INCLUSION TEACHER Work Phone: noms NEUROLOGYStart: 05-24-2025 End: 61-29-7850Wflnws LensARheetTreatFeed MENTAL HEALTH COUNSELOR-INCLUSION TEACHER Work Phone: noms NEUROLOGYStart: 05-24-2025 End: 99-61-4568ifqpozzwtkTLIQOET SPRINGERCox Walnut Lawn AvailableStart: 05-24-2025 End: 76-67-3488Xgxjfl outpatient visit 25 minutesJeFRESS MENTAL HEALTH COUNSELORTechnimark Work Phone: noms Brenda NeurologyComment on above:BUCK (obstructive sleep apnea) (Primary Dx); Cervical paraspinal muscle spasm; Cervical radiculopathyStart: 05-23-2025 End: 76-74-0260Dxcngitqi encounterMark Trista Block MD Work Phone: noms [place] [facility] 111Start: 05-15-2025 End: 08-43-5235avgeofpjcfINFEW D Castleview Hospitaltart: 05-15-2025 End: 39-29-8743Czjvqkxsex hospital visit by physicianKendall Laboratory Schedule MWHZ LaboratoryComment on above:ArrivedStart: 04-20-2025 End: 24-52-9833Hwogqi flowsTeresa Sánchez DPM Work Phone: noms WWW PODIATRYStart: 04-20-2025 End: 64-53-2937Kymdxgame Sánchez DPM Work Phone: noms WWW PODIATRYStart: 04-20-2025 End: 64-03-5091Ylqjnd outpatient visit 25 minutesRobbin Sánchez DPM Work Phone: noms [facility] PODIATRYComment on above:MRSA (methicillin resistant staph aureus) culture positive (Primary Dx); Right foot pain; Skin ulcer of toe of right foot with fat layer exposed (HCC); Idiopathic progressive polyneuropathy; Infection of toe; Charcot arthropathy of midfoot; Ulcer of left foot, limited to breakdown of skin (HCC); Closed nondisplaced fracture of second metatarsal bone of right foot, initial encounterStart: 04-20-2025 End: 49-74-7539wcuknwvtwdBEKFHVNOHMX J BOHACHNot AvailableStart: 04-14-2025 End: 24-47-3542cqdvxlomjuLCSWJDank Powell HospitalStart: 04-14-2025 End: 91-81-0675Myqhetqiwz hospital visit by Paola Adam MD Work Phone: mZ LaboratoryComment on above:Hyperglycemia; Mixed hyperlipidemia; Chronic renal impairment, stage 3a ([facility])Start: 04-12-2025 End: 71-82-4322Itzhvpagg Result EncounterChriskyle Sánchez DPM Work Phone: noms External Department UnsolicitedStart: 04-12-2025 End: 38-39-8309Ijjtqdjrq Result EncounterChjorge Sánchez DPM Work Phone: noms External Department UnsolicitedStart: 04-11-2025 End: 83-62-1949Pbaxrdhls Result EncounterChjorge Sánchez DPM Work Phone: noms External Department UnsolicitedStart: 04-11-2025 End: 92-51-4165Baojhjboo Result EncounterChriskyle Sánchez DPM Work Phone: noms External Department UnsolicitedStart: 04-11-2025 End: 12-04-3976rbhkzjhghkFAELPHAEHRDWiley Powell HospitalStart: 04-11-2025 End: 74-86-4503Twmdofrgxv hospital visit by Anisha Sánchez DPM Work Phone: [facility] HospitalComment on above:Pain in right footStart: 04-06-2025 End: 77-69-2642Apqwwg outpatient visit 25 minutesChjorge Sánchez DPM Work Phone: noms WWW PODIATRYComment on above:Right foot pain (Primary Dx); Skin ulcer of toe of right foot with fat layer exposed (HCC); Infection of toe; Idiopathic progressive polyneuropathy; Generalized edemaStart: 04-06-2025 End: 48-02-8499gnztiomoxuFZFRKISHLXC J BOHACHNot AvailableStart: 04-06-2025 End: 60-83-3848Vcsxcu flowsTeresa Sánchez DPM Work Phone: noms WWW PODIATRYStart: 04-06-2025 End: 00-46-4759Yvjqfo Batsheva Sánchez DPM Work Phone: noms WWW PODIATRYStart: 04-04-2025 End: 18-84-7037Lhrixbhkc department patient visitSevero Case MD Work Phone: [facility] Emergency DepartmentComment on above: Pressure injury of deep tissue of toe, unspecified laterality (Primary Dx)Start: 03-14-2025 End: 63-12-2711Pemsjaame Block MD Work Phone: noms NEUROLOGYStart: 03-14-2025 End: 76-49-1795Wrldstame Block MD Work Phone: noms NEUROLOGYStart: 03-14-2025 End: 63-22-1509Feefoq outpatient visit 25 minutesLynn Block MD Work Phone: noms SWS NEUR BComment on above:BUCK (obstructive sleep apnea) (Primary Dx); Claustrophobia ; HypersomniaStart: 03-14-2025 End: 49-10-5720ltmetiizcuGJYG D BEJNot AvailableStart: 02-15-2025 End: 09-12-7593bhalovclllBDKAV [facility] Hospitaltart: 02-15-2025 End: 30-07-2939Svhlorydec hospital visit by Paola Adam MD Work Phone: [facility] MammographyComment on above: Encounter for screening mammogram for malignant neoplasm of breastStart: 40-15-0724ymxghvgdrvSzslubcc:FTMCStart: 02-13-2025 End: 71-35-8979Qcwpcz Therese Casas MD Work Phone: noms NEUROLOGYStart: 02-13-2025 End: 84-40-9786Qjzcuo Therese Casas MD Work Phone: noms NEUROLOGYStart: 02-13-2025 End: 19-37-5372aybngbsngaINLSGUM W BAUERNot AvailableStart: 02-13-2025 End: 03-18-7063Sjbumq outpatient visit 25 minutesTrace Casas MD Work Phone: noms SWS NEURComment on above:Charcot's joint, left ankle and foot (Primary Dx); Gait instability; Idiopathic progressive polyneuropathy; Intractable 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 (CMS/HCC); Restless legs; Carpal tunnel syndrome, bilateral; BUCK (obstructive sleep apnea)Start: 12-06-2024 End: 39-72-6067Mgnvlx Magen Block MD Work Phone: noms NEUROLOGYStart: 12-06-2024 End: 88-48-7553Evlqqb Magen Block MD Work Phone: noms NEUROLOGYStart: 12-06-2024 End: 46-58-8708rwnncrepdgQRAY D BEJNot AvailableStart: 12-06-2024 End: 44-53-2315Rzvkzb outpatient new 60 minutesLynn Block MD Work Phone: noms SWS NEUR BComment on above:BUCK (obstructive sleep apnea) (Primary Dx); BUCK on CPAP; Claustrophobia (CMS/HCC)Start: 11-14-2024 End: 98-46-9269Lzijsx flowsheetFelicia C Windnagel BUSINESS MANAGEMENT SPECIALIST Work Phone: noms BM NEUROLOGYStart: 11-14-2024 End: 16-04-2924Jrmqoj flowsheetFelicia C Windnagel BUSINESS MANAGEMENT SPECIALIST Work Phone: noms BM NEUROLOGYStart: 11-14-2024 End: 76-48-8994Vatoum outpatient visit 25 minutesFelicia Jamila Guzmannagel BUSINESS MANAGEMENT SPECIALIST Work Phone: noms SWS NEURComment on above:BUCK on CPAP (Primary Dx); Idiopathic progressive polyneuropathy; Restless legs; Intractable 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 (CMS/HCC) Start: 11-14-2024 End: 44-31-2694iductjmmbcTEBXRTU C JAIMEEGELNot AvailableStart: 11-14-2024 End: 53-93-4338evzmuhkgnzXHYGQ BACKProMedica Fostoria Community Hospitaltart: 11-14-2024 End: 81-60-3542Nouxlwdbzr hospital visit by Paola Adam MD Work Phone: mZ LaboratoryComment on above:Pre-diabetes; Mixed hyperlipidemiaStart: 11-02-2024 End: 60-34-0273Cokratjun encounterJanel Allen BUSINESS MANAGEMENT SPECIALIST Work Phone: noms [facility] NEURO 210Start: 10-11-2024 End: 07-79-8696Rhejhb outpatient new 45 minutesBilrubens Adam MD Work Phone: [facility] Throat PhysiciansComment on above:Thyroid nodule (Primary Dx); Lipoma of neckStart: 10-11-2024 End: 03-69-1224htqbejipezSQIYC BACKOhio Health AmbulatoryStart: 10-05-2024 End: 80-76-1631PoxjohUgkdpsx W Bauer MD Work Phone: noms SWS NEURComment on above:Idiopathic progressive polyneuropathy; Non-seasonal allergic rhinitis due to pollenStart: 09-14-2024 End: 81-93-0911Xdgtxk flowsheetFelicia C Megannashena BUSINESS MANAGEMENT SPECIALIST Work Phone: noms BM NEUROLOGYStart: 09-14-2024 End: 18-13-5797Ztefnu flowsheetFemadelynia Jamila Meng BUSINESS MANAGEMENT SPECIALIST Work Phone: noms BM NEUROLOGYStart: 09-14-2024 End: 50-92-2423Kdnucmyck encounterFelicvirgen Meng BUSINESS MANAGEMENT SPECIALIST Work Phone: noms [facility] NEURO 210Start: 09-14-2024 End: 31-40-1526Fftywf outpatient visit 25 minutesFelicvirgen Meng BUSINESS MANAGEMENT SPECIALIST Work Phone: noms SWS NEURComment on above:BUCK on CPAP (Primary Dx); Idiopathic progressive polyneuropathy; Intractable 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 (CMS/HCC); Restless legs; Bilateral carpal tunnel syndromeStart: 09-14-2024 End: 09-54-4473nzywmzkjbmRRLGKNV Jamila YUSRANot AvailableStart: 09-09-2024 End: 27-26-4646Vysxpfbwdp OrdersFelicia Banguniversity of connecticut [facility]t [facility] Hospitaleal ENT AshlandComment on above:Thyroid nodule (Primary Dx)Start: 09-06-2024 End: 61-44-0761xilcsxvebrTLWVKOhioHealth Grant Medical Centertart: 09-06-2024 End: 45-53-2729Noalfzgzny hospital visit by physicianFelipe Adam MD Work Phone: [facility] UltrasoundComment on above: Thyroid noduleStart: 08-11-2024 End: 58-09-8615CquwpjDaiyudp W Bauer MD Work Phone: noms SWS NEURComment on above:Idiopathic progressive polyneuropathy; Non-seasonal allergic rhinitis due to pollenStart: 06-10-2024 End: 45-10-8834Odqhgj Therese Casas MD Work Phone: noms BM NEUROLOGYStart: 06-10-2024 End: 91-30-2230Kchdzt Therese Casas MD Work Phone: noms BM NEUROLOGYStart: 06-10-2024 End: 60-72-8295Blgbsi outpatient visit 25 minutesTrace Casas MD Work Phone: noms [facility] NEURComment on above:Idiopathic progressive polyneuropathy (Primary Dx); Bilateral carpal tunnel syndrome; Restless legs; Intractable 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 (CMS/HCC) Start: 06-10-2024 End: 60-95-1312ksjlucnbcjVPWQGRR W BAUERNot AvailableStart: 05-10-2024 End: 52-05-0717Orunmqjpef hospital visit by Paola Adam MD Work Phone: mwhZ LaboratoryStart: 05-10-2024 End: 57-34-1814Gqjonj outpatient visit 40 minutesNicole Ginger DO Work Phone: noms WNZ NEUROComment on above:BUCK (obstructive sleep apnea); Hypersomnia; Snoring; Class 2 obesity due to excess calories with body mass index (BMI) of 38.0 to 38.9 in adult, unspecified whether serious comorbidity presentStart: 02-15-2024 End: 81-16-4752nldrqzudzyGbxej D HighlanderFacility:[facility] Hospitaltart: 02-15-2024 End: 71-67-5650kviymvetckAXN [facility] Work Phone: [facility] Work Phone: Start: 02-15-2024 End: 51-25-5219Txgbowta ReferredDP [facility] Work Phone: [facility]-LAB Path Spec Ursula HospStart: 06-15-2023 End: 86-10-8784Sfaeemuoyf hospital visit by Paola Adam MD Work Phone: mWHZ LaboratoryComment on above:Mixed hyperlipidemia Start: 33-17-6730bzizjrecjhKADJZProMedica Bay Park Hospital PhysiciansStart: 03-03-2023 End: 63-61-7647Bzecnz outpatient new 45 minutesMASSIMO Shook DPM Work Phone: [facility] Physicians GroupComment on above:Charcot arthropathy of midfoot (Primary Dx); Gastrocnemius equinus, unspecified laterality; Foot pain, leftStart: 02-11-2023 End: 47-97-8272mwwihasyllUASCY D HIGHLANDERFacility:C9Bvnmo: 02-05-2023 End: 15-80-2692Qepznfjmfh hospital visit by Paola Adam MD Work Phone: mZ LaboratoryComment on above:Pelvic pressure in femaleStart: 02-04-2023 End: 45-30-1341cwdiqhzvipXBERR D [facility]HABIL[facility]ATION HOSPITALANDERFacility:G4Vuekx: 01-28-2023 End: 81-13-1750tctzucuuosFGNTZ D [facility] REHABILITATION HOSPITALANDERFacility:E9Gqbim: 01-06-2023 End: 35-17-2876Cfdparvpd department patient visitSt. John's Episcopal Hospital South Shoretart: 07-09-2022 End: 52-18-8457Qccczrwoij hospital visit by JOE Rod RD Work Phone: mZ Diet and NutritionComment on above:ArrivedStart: 07-02-2022 End: 28-87-5108Ytwcmuuprm hospital visit by Efren Diabetes Education Work Phone: mWHZ Diabetic EducationStart: 06-25-2022 End: 05-93-6214Nqsoizuiwl hospital visit by physicianTennille Additional [facility] RadiologyComment on above:Foreign body (FB) in soft tissue Start: 06-25-2022 End: 66-84-6917Ynksqhsgkt hospital visit by [facility] Mri Scanner [facility] Hospitalard MRIComment on above:Pain of foot, unspecified laterality; Closed nondisplaced fracture of second metatarsal bone of left foot, initial encounter; Closed nondisplaced fracture of lateral cuneiform of left foot, initial encounterStart: 05-27-2022 End: 38-45-1188Ubiikcmbfm hospital visit by physicianPl[facility]view [facility] Ultrasound Room [facility] UltrasoundComment on above:Neck massStart: 04-28-2022 End: 62-89-7915vourqxhyamDVPVWR S GOINESMercy D[facility] Medical Centertart: 04-28-2022 End: 25-19-1884Rbzvopdpmc hospital visit by Paola Adam MD Work Phone: MAL[facility] LABORATORYComment on above:Acute cystitis with hematuriaStart: 04-12-2022 End: 74-42-1255Iqbhbvypxl hospital visit by Paola Adam MD Work Phone: mWHZ LaboratoryComment on above:Fatigue, unspecified type; Encounter for screening for HIV; Mixed hyperlipidemia; Hyperglycemia; Chronic renal impairment, stage 3b (HCC)Start: 02-05-2022 End: 08-79-6437Ylhlbboqsu hospital visit by Kaylah PAYTON Physical TherapyStart: 02-04-2022 End: 73-84-7342Uzxgabr encounter procedureMedina Hospital Ctr-MRI Strub RdStart: 02-03-2022 End: 35-71-8282Swwdbagpwr hospital visit by Bradley Johnson Physical TherapyStart: 01-29-2022 End: 56-53-9757Hthtiqrwmv hospital visit by Ivan VIGIL Physical TherapyComment on above:ArrivedStart: 01-27-2022 End: 86-49-2704Jjxjipjsid hospital visit by Kaylah PAYTON Physical TherapyComment on above:ArrivedStart: 01-24-2022 End: 72-27-0956Tzilszlada hospital visit by Jojo GREENZ Physical TherapyComment on above:ArrivedStart: 01-22-2022 End: 35-64-7787Zelywppeme hospital visit by Ivan VIGIL Physical TherapyStart: 01-17-2022 End: 39-30-7122Niazvhgoya hospital visit by Ivan VIGIL Physical TherapyComment on above:ArrivedStart: 01-13-2022 End: 62-92-3913Cdsetnqtfo hospital visit by Kaylah PAYTON Physical TherapyStart: 01-03-2022 End: 89-05-4228Oqzqbvxoko hospital visit by Ivan Rangel PTAMWHZ Physical TherapyComment on above:ArrivedStart: 12-31-2021 End: 28-46-2437Iyvesylifo hospital visit by Renetta Herman OTMWHUzair Occupational TherapyComment on above:ArrivedStart: 12-30-2021 End: 31-45-6332Mbqcbsxtzc hospital visit by Renetta Herman [facility] HOSPITALUzair Occupational TherapyComment on above:ArrivedStart: 12-23-2021 End: 01-49-5946Wztlbfkpas hospital visit by Renetta Herman [facility] HOSPITALUzair Occupational TherapyComment on above:ArrivedStart: 11-29-2021 End: 70-59-8680syfqzspfuoIAWKIMemorial Satilla Healthtart: 08-01-2021 End: 68-02-5957Fvigyobinl hospital visit by Paola Adam MD Work Phone: mO LaboratoryComment on above:Frequent UTI; Urinary urgency; Urinary frequencyStart: 07-11-2021 End: 30-45-5534Lekjmgghnn hospital visit by Paola Adam MD Work Phone: mwhz LaboratoryComment on above:Frequent UTI; Urinary urgency; Urinary frequencyStart: 06-11-2021 End: 31-65-5926Cnkspbtrcc hospital visit by Paola Adam MD Work Phone: mwhz LaboratoryComment on above:Acute cystitis with hematuria; Recurrent UTIStart: 05-27-2021 End: 22-87-6067Urcxcyvhvd hospital visit by Paola Adam MD Work Phone: mwhz LaboratoryComment on above:Difficult or painful urinationStart: 05-20-2021 End: 49-48-3069Xbkffbrwqx hospital visit by Paola Adam MD Work Phone: [facility] LaboratoryStart: 04-13-2021 End: 55-26-7051Hixllivllj hospital visit by Paola Adam MD Work Phone: [facility] LaboratoryComment on above:Acute cystitis with hematuriaStart: 02-13-2021 End: 50-29-4388Ygvjmfazwa [facility] Pat Screening ScheduleMWHZ PRE ADMITComment on above:Suspected COVID-19 virus infectionStart: 01-21-2021 End: 86-71-6286Wbgbjegvpa [facility] Covid[facility] Pat Screening ScheduleMWHZ PRE ADMITComment on above:Viral illnessStart: 11-15-2020 End: 97-70-3323Bqbvjyxtdb [facility] Covid19 Pat Screening ScheduleMWHZ PRE ADMITComment on above:ArrivedStart: 09-16-2020 End: 34-87-1793Ygoeqfqbm department patient visitChjorge Rooney Work Phone: [facility] EDComment on above:Acute thoracic back pain, unspecified back pain laterality (Primary Dx)Start: 08-24-2020 End: 16-64-5394Jngzydcxkg hospital [facility] by physicianMer[facility]inrub[facility] AdamSTRONG [facility] Comment on above:Epidural abscessStart: 08-08-2020 End: 50-64-1828Zswlefphex hospital visit by physicianMerit Health Rankinrubens AdamSTRONG [facility] Comment on above:SOB (shortness of breath)Start: 07-24-2020 End: 28-42-7760Tjasxfiuvs hospital visit by [facility] BackSTRONG [facility] Comment on above:Epidural abscessStart: 06-07-2020 End: 79-09-1173Bveylhemoe hospital visit by physicianPal[facility] Start: 05-25-2020 End: 41-64-5798Fnptuepzdd hospital visit by physicianPal[facility] BackSTRONG [facility] Comment on above:Vitamin D deficiency; Mixed hyperlipidemia; HyperglycemiaStart: 12-14-2019 End: 32-88-8001Mdbdphnvte hospital visit by physician[facility] BackSTRONG [facility] Comment on above:MRSA (methicillin resistant Staphylococcus aureus) septicemia (HCC)Start: 09-24-2019 End: 77-92-3705Fivscjxwxs hospital visit by Paola Adam MD Work Phone: [facility] LaboratoryStart: 09-12-2019 End: 41-73-4100Vnhypptcna hospital visit by physicianBilly Back MD Work Phone: [facility] SLEEP LABStart: 08-29-2019 End: 11-10-5362Nqunxnjvem hospital visit by [facility] Schedule [facility] SLEEP LABComment on above:ArrivedStart: 07-28-2019 End: 10-89-5114Cqzfimvixc hospital visit by Kong Campos [facility] RadiologyComment on above:MRSA (methicillin resistant Staphylococcus aureus) septicemia (HCC)Start: 06-17-2019 End: 23-58-0682Ltbdvbokya hospital visit by Paola Pappas Laboratory Comment on above:MRSA (methicillin resistant Staphylococcus aureus) infection Start: 02-03-2019 End: 63-25-1320Glvpykg [facility] Start: 02-03-2019 End: 01-37-2846Vuzfvercrz hospital visit by Nilesh Casas Work Phone: [facility] MRIComment on above: Brachial neuritis; Peripheral nerve disorder; Spasm of muscleStart: 11-10-2018 End: 55-97-8401Pxvlfcf encounter procedureAndrey EarlyFacility:[place] Start: 10-18-2018 End: 99-07-2273Ypqodqh encounter procedureAndrey Early Work Phone: [facility] HospitalStart: 41-16-3650Ddcxxym encounter procedureLuis NiecyiFacility:[place]Start: 10-03-2018 End: 34-90-5932Ecygtis encounter procedureFelipe [facility] HospitalStart: 09-20-2018 End: 88-91-9035Mtaamkl encounter procedureLuis E NiecyiFacility:[facility] HospitalStart: 75-80-4530Ymmnnbz encounter procedureFacility:[id number]: 01-70-8021Zsjbamz encounter procedureLUIS E [facility] HospitalStart: 09-06-2018 End: 24-80-8917Vkckiab encounter procedureHistorical [facility] Start: 08-31-2018 End: 25-12-1364Umliomo encounter procedureHistorical [facility] REG Start: 08-27-2018 End: 37-69-2465Hoafypb encounter procedureLuis E NiecyiFacility:[facility] HospitalStart: 85-44-6678Envvwmt encounter procedureFacility:[id number]: 08-15-2018 End: 07-64-3701Vilpjalitn and management of inpatientWABRENDA [facility] Centertart: 04-02-2018 End: 69-51-6535Djssebh encounter procedureJosophie CalderonFacility:[place]Start: 97-56-4855Ryuwoxs encounter procedureMelmalcom Jose ManuelFacility:[facility] Centerart: 02-04-2018 End: 69-22-5328SlkwbryhfxYnbccn Trista [facility] HospitalStart: 06-36-1119Xqwjhad encounter procedureTERBrock [facility] HOSPITALanuelInspira Medical Center Elmertart: 11-17-2017 End: 86-36-5818IojcxufivhNwziyirv Rings Work Phone: [facility] Hospitaltart: 10-20-2017 End: 91-01-7698QzikooqkozWDFHKYGDAKSHA [facility] Hospitaltart: 50-08-1144Ekgshqq encounter procedureTERUK Healthcaretart: 63-46-4807WfufijotcoHGTJGJLincoln County Medical Centertart: 10-09-2017 End: 20-17-5001Pggapaf encounter procedureTERAdena Pike Medical [facility] Start: 73-02-2056Iculuij encounter procedureTERAdena Pike Medical Center Start: 82-95-2043PyyykujddrCMTKSXLincoln County Medical Centertart: 03-31-2017 End: 46-34-8301SkydmhxmjvBVHTQNGCHASE Mer[facility] Procedures DateProcedureProcedure DetailPerforming ClinicianStart: 11-97-0986Zvwnj metabolic panel calcium totalBilly Back Work Phone: start: 70-10-6910Msfzm metabolic panel calcium total Damon PROCTOR Work Phone: Start: 70-64-1054P-reactive proteinKiharshal Segura PA Work Phone: Start: 05-30-3520Elhzn function panelJadanny Samson BUSINESS MANAGEMENT SPECIALIST-C Work Phone: Start: 00-91-8937Jxpqp metabolic panel calcium total Peter D [facility] Centerjoanie DPM Work Phone: Start: 12-43-0825W-reactive proteinPeter D [facility] [place] DPM Work Phone: Start: 91-50-6447VXUIVQZZGI CHECKPeter D [facility] [place] DPM Work Phone: Start: 47-34-8776Bszdfqjwvbwiy metabolic panelBilly Back Work Phone: start: 31-47-4183Nbygp panelBilly Back Work Phone: start: 18-00-1139XZE FOOT RIGHT W WO CONTRAST Robbin Sánchez DPM Work Phone: Start: 27-05-0331Mck lower extrem oth/thn jt w/o & w/contr matrChristopher Adam Sánchez DPM Work Phone: Start: 30-96-7043Eapdr of urea nitrogen quantitative Robbin Sánchez DPM Work Phone: Start: 62-17-7868CGYE BUN + CREATININEChristopher Adam Sánchez DPM Work Phone: Start: 59-61-7507Ufgnqqckmv examination foot 2 views Robbin Sánchez DPM Work Phone: Start: 04-04-2025 End: 68-07-0977Sajqs toe minimum 2 viewsSevero Case MD Work Phone: Start: 45-60-8452B-reactive proteinSevero Case MD Work Phone: Start: 04-04-2025 End: 28-08-3968Rarbzqzbobh peptideSevero Case MD Work Phone: Start: 54-78-3752Bblsjpufpbjfw metabolic panelBilly Back Work Phone: start: 71-54-2942Wkewv Jignesh Adam MD Work Phone: start: 30-68-0955Mp soft tissue head & neck real time ramesh Adam MD Work Phone: start: 14-54-8299Ywqnd function panelScatrina Forbes MD Work Phone: Start: 19-57-7543Zjkgw dip stick/tablet rgnt auto w/o microscopySwdomenica Forbes MD Work Phone: Start: 91-57-2647Iqljr Jignesh Adam MD Work Phone: start: 92-76-3049Xghteuwo Susan Cassidy DPM Work Phone: Start: 75-40-8112Bid prim src wet mount nfct agtLuis Mclean PA-C Work Phone: Start: 96-06-3122Njy lower extrem oth/thn jt w/o & w/contr matrChristopher J Bohbobby DPM Work Phone: Start: 54-20-7506Onxdibqqjs examination foot 2 views Micky Lauren MD Work Phone: Start: 18-92-4014Pk soft tissue head & neck real time ramesh Adam MD Work Phone: start: 44-14-8943Uumnknnosutfk metabolic Jignesh Adam MD Work Phone: start: 62-97-6074Mrvha Jignesh Adam MD Work Phone: start: 03-80-7531CV lumbar spine wo conStart: 16-12-8136TS pre/post mri xrayStart: 78-84-5551Huojpjbqqab observation [Identifier] in Cervix by Cyto stainMwhz Education Work Phone: Start: 90-81-0336Rsaln dip stick/tablet reagent auto microscopyThomas Desi MELENDREZ Work Phone: Start: 93-50-5261Sqdhq dip stick/tablet reagent auto microscopyThomas Desi MELENDREZ Work Phone: Start: 59-31-2621Lncblqlxnve panelGregory Forbes MD Work Phone: Start: 72-17-1787Rtkxe dip stick/tablet rgnt auto w/o microscopyGregory Forbes MD Work Phone: Start: 68-45-0637BLNRQ-19Wendy Meka Hull MENTAL HEALTH COUNSELOR - INCLUSION TEACHER Work Phone: Start: 63-01-0122EDFJS-Luis E Hartman Work Phone: Start: 18-13-3215Btgwq dip stick/tablet rgnt auto w/o microscopyChjorge Rooney Work Phone: Start: 09-16-2020 End: 50-39-2606Rsnwx count complete auto&auto difrntl wbcChjorge Rooney Work Phone: Start: 97-30-9666Myujuvnzsnajc rate rbc automated Robbin Rooney Work Phone: Start: 73-13-2614Ccqzy count complete auto&auto difrntl wbcLuis E Hartman Work Phone: Start: 48-55-6128H-reactive proteinLuis E Hartman Work Phone: Start: 66-72-4992Rezmzjbivaacb rate rbc automatedLuis E Hartman Work Phone: Start: 53-40-5026Sniok count complete auto&auto difrntl wbcLuis E Hartman Work Phone: Start: 70-51-2932A-reactive proteinLuis E Hartman Work Phone: Start: 83-87-4975Jhhxpitzjypcr rate rbc automatedLuis E Hartman Work Phone: Start: 01-83-2334Kvmwnyv total xcpt refractometry urineHeather Forbes Work Phone: Start: 73-25-3217Rlqbp dip stick/tablet rgnt auto w/o microscopyHeather Forbes Work Phone: Start: 47-78-894673 hydroxy includes fractions if performedBilly Back Work Phone: start: 77-24-1035Tvkcuvavidycx metabolic panelBilly Back Work Phone: start: 53-63-1807Gkqvredyau glycosylated r2lZpiep Back Work Phone: start: 56-10-9922Lbtom panelBilly Back Work Phone: start: 62-37-4081Hokzrpfkbpb direct measurement ldl cholesterolBilly Back Work Phone: start: 78-76-9285VFTPYBH FASTING?Felipe Back Work Phone: start: 09-79-1398R-reactive proteinNora Longthorne Work Phone: Start: 42-05-3555Kioiuguwwq glycosylated d5uOuetesplxs Mónica Sawyeri MENTAL HEALTH COUNSELOR - INCLUSION TEACHER Work Phone: Start: 66-62-7043IMGXZJQ B12 & FOLATEJacsanta Harmonianharinder MENTAL HEALTH COUNSELOR - INCLUSION TEACHER Work Phone: Start: 94-24-1883Zytba spine cervical 4 or 5 viewsNora Longthorne Work Phone: Start: 12-10-9372Cljye count complete auto&auto difrntl wbcNora Longthorne MENTAL HEALTH COUNSELOR - INCLUSION TEACHER Work Phone: Start: 42-33-9229E-reactive proteinNora Longthorne MENTAL HEALTH COUNSELOR - INCLUSION TEACHER Work Phone: Start: 72-52-2203Eflovds serum plasma/whole blood Heather Forbes Work Phone: Start: 97-38-8847Aveoi of magnesiumHeather Forbes Work Phone: Start: 69-68-3280Nbjjq of phosphorus inorganicSwdomenica Forbes Work Phone: Start: 88-17-0325Pcayn of urea nitrogen quantitative Heatherwoody Forbes Work Phone: Start: 60-24-1633Xsytv count hemoglobinSwdomenica Forbes Work Phone: Start: 25-12-2519Vxgfufk totalSwapwoody Forbes Work Phone: Start: 96-13-6005Pwirvyntrea panelSwapna Andrei Work Phone: Start: 15-27-5766Ifebfwu total xcpt refractometry urineSwdomenica Forbes Work Phone: Start: 37-53-0620Krwppaceoq microscopic onlySwdomenica Forbes Work Phone: Start: 86-93-1843Wghxn dip stick/tablet rgnt auto w/o microscopySwdomenica Forbes Work Phone: Start: 93-52-0728G-reactive proteinLuis E Hartman Work Phone: Start: 71-77-4674Ymfycysqsquts rate rbc automatedLuis E Hartman Work Phone: Start: 65-05-8695VZQ of cervical spine without contrastExternal TranscribedStart: 10-03-2018 End: 63-35-0414Nnoclakavib examination of blood, cultureLuis JaureguiComment on above:Performed By: #### BC #### Unless otherwise noted, all testing performed by [place] [address] CLIA: [id number] Sales And Marketing Analyst: Harshad Solano M.D.Start: 09-06-2018 End: 71-32-9441VGCL (OUTSIDE)Historical ProviderStart: 08-31-2018 End: 56-20-1349TJZN (OUTSIDE)Historical ProviderStart: 80-09-1031OW CONSULT TO HOME CARE NEEDSWABRENDA MARYtart: 69-69-3840Rcffa of magnesiumWASEEDIN CASASANStart: 24-65-6038Lxbux metabolic panel calcium totalWASEEM YESSENIAANStart: 52-09-3471Mjdpc count complete auto&auto difrntl wbcWASEEM YESSENIAtart: 22-04-6677Gahqaecmzwbtn (pct)JV MARYrt: 77-58-2127LDTHLYDAM PATIENTWASEEM YESSENIAtart: 08-25-2018 PULSE OXIMETRY, CONTINUOUSWASEEM YESSENIAANStart: 61-32-1712FZWPRG PICC LINEWASEEM YESSENIAANStart: 85-80-3862VEJVVIPGKJLLA NURSING CARE ORDER (SPECIFY)JV MARYrt: 33-64-9145MYZ ORDER FOR WALKER OPWASEEM YESSENIAANStart: 29-77-7633PCJTL OXIMETRY, CONTINUOUSWASEEM YESSENIAANStart: 84-53-8993MJWGDN PHYSICIAN (SPECIFY)JV APPLE Start: 47-61-8708NCXCAQJ COMMUNICATIONWASEEM YESSENIAtart: 19-47-3390TRWLA CANNULA OXYGENWASEEM YESSENIAtart: 70-01-6514IWDVYUFJQ SPIROMETRY RTWASEEM tart: 38-51-4491WBRSVIBF OXYGEN THERAPY PROTOCOLWA YESSENIArt: 57-30-5130PJLGQ OXIMETRY, CONTINUOUSWASEEM YESSENIAANStart: 15-58-7032Lqwba of magnesiumJV APPLE Start: 95-01-3606Vhwey metabolic panel calcium totalWASEEM USMANtart: 08-25-2018 Blood count complete auto&auto difrntl wbcWASEEM YESSENIAANStart: 28-49-8283GDZRW OXIMETRY, CONTINUOUSWASEEM YESSENIAANStart: 27-98-2091LIVZC OXIMETRY, CONTINUOUSWASEEM KHANStart: 21-51-6664GTAGV OXIMETRY, CONTINUOUSWASEEM KHANStart: 31-49-4868RUYG GENERALWASEEM YESSENIAANStart: 90-36-5239IG EVAL AND TREATWASEEM YESSENIAANStart: 11-47-8805QT EVAL AND TREATWASEEM YESSENIAANStart: 31-50-0726BHYAX OXIMETRY, CONTINUOUSWASEEM YESSENIAANStart: 39-67-7526QLRBW OXIMETRY, CONTINUOUSWABRENDA APPLE Start: 48-98-9009WMYUJSQLE SPIROMETRY RTTUBA CITY REGIONAL HEALTH CARE CORPORATIONEDIN CASASANStart: 83-02-8175WGSIBWMJ OXYGEN THERAPY PROTOCOLSHARE MEDICAL [facility] USMANtart: 36-47-8434XKKID OXIMETRY, CONTINUOUS JV YESSENIAANStart: 40-83-3241KPYW FAST CULTURE WITH SMEARMERCY HOS[facility] YESSENIAtart: 25-61-7469NGKVGL STAINEDIN CASAStart: 71-84-5354UQKMHK CULTUREMDBRENDA APPLE Start: 28-29-6704WWUAOZ CULTURETUBA CITY REGIONAL HEALTH CARE CORPORATIONEDIN CASASANStart: 67-58-6722XFFWN OXIMETRY, CONTINUOUSWAMERCY HOSPITAL [facility] [place] YESSENIAANStart: 44-03-9261Zduqmzmazmvcv (pct)JV KHtart: 83-24-2617GTDIA OXIMETRY, CONTINUOUSWAMERCY HOSPITAL [facility] [place] YESSENIAANStart: 97-23-7733VZMEA [facility] USMANtart: 58-55-3497IVLUQJPOAIYHS NURSING CARE ORDER (SPECIFY)JV APPLE Start: 08-73-6529ELWPAETO PATIENTWAMERCY HOSPITAL [facility] – [facility] YESSENIAtart: 83-76-9120MQFZCK FOR SURGICAL PROCEDURESMERCY HOSPITAL [facility] YESSENIArt: 80-08-6399LBHUMKMBM AND AEROBIC CULTUREMDBRENDA APPLE Start: 99-28-0947MQXFK OXIMETRY, CONTINUOUSWAMERCY HOSPITAL [facility] YESSENIAtart: 43-40-9797FTZUR OXIMETRY, CONTINUOUSWASE YESSENIAANStart: 08-69-3593XVHOJ OXIMETRY, CONTINUOUSWASEEM YESSENIAANStart: 04-37-6723BO CONSULT TO IV TEAMMERCY HOSPITAL [facility]OM[facility] YESSENIAtart: 02-15-4014SHODLEAAF SPIROMETRY RTSHARE MEDICAL CENTER [facility] YESSENIAtart: 97-79-7937IETBLTHN OXYGEN THERAPY PROTOCOLSHARE MEDICAL [facility] USMANtart: 26-09-7021WLZEF OXIMETRY, CONTINUOUSWASEEM YESSENIAANStart: 08-23-2018 Blood count complete auto&auto difrntl wbcMISSOURI SOUTHERN HEALTHCARErt: 08-23-2018 Comprehensive metabolic panelWESTERN MISSOURI MEDICAL CENTERtart: 00-74-3252Owjedjtujou platelet assayWAMERCY HOSPITAL [facility] YESSENIAtart: 16-80-7521YXCDS OXIMETRY, CONTINUOUSWAMERCY HOSPITAL [facility] YESSENIAANStart: 37-99-4382ETYDQ OXIMETRY, CONTINUOUSWASEEM KHANStart: 45-03-3711DZEMO OXIMETRY, CONTINUOUSWASEEM KHANStart: 45-21-8674VFKGS OXIMETRY, CONTINUOUSWASEEM APPLE Start: 79-36-4116SUHSE OXIMETRY, CONTINUOUSWASEEM KHANStart: 32-58-8001HTPGHVLKK SPIROMETRY RTWASEEM YESSENIAANStart: 07-38-7058EBTPOEEQ OXYGEN THERAPY PROTOCOLWASEEM YESSENIAANStart: 17-81-6397LRIOM OXIMETRY, CONTINUOUSWASEEM KHANStart: 08-22-2018 Assay of magnesiumWASEEM YESSENIAANStart: 58-71-1446Kgbmt count complete auto&auto difrntl wbcWASEEM YESSENIAANStart: 15-22-6449MCZFIFHPBE, TROUGHWASEEM YESSENIAANStart: 59-07-2316YBURB OXIMETRY, CONTINUOUSWASEEM KHANStart: 10-98-8881GQLZU OXIMETRY, CONTINUOUSWASEEM KHANStart: 49-30-8094DFAMZ OXIMETRY, CONTINUOUSWASEEM APPLE Start: 23-42-1718Kqwhdukgddlzc (pct)JVMARISABEL MARYtart: 70-22-8343YEYWS OXIMETRY, CONTINUOUSWASEEM YESSENIAANStart: 53-88-5184WDUAS OXIMETRY, CONTINUOUSWASEEM APPLE Start: 65-92-6200Eqv lower extrem oth/thn jt w/o & w/contr matrWASEEDIN MARYtart: 47-09-4942JWTZXQSHH SPIROMETRY RTWASEEM USMANtart: 31-82-4294VVLVMAGQ OXYGEN THERAPY PROTOCOLWASEEM YESSENIAANStart: 09-32-9016YSBAH OXIMETRY, CONTINUOUSWASEEM KHANStart: 67-75-3394Fvpkv of magnesiumWASEEM USMANtart: 61-84-8665Qzvyp count complete auto&auto difrntl wbcWASEEM USMANtart: 16-60-9254ZRAJY OXIMETRY, CONTINUOUSWASEEM KHANStart: 64-58-9401PEPRG OXIMETRY, CONTINUOUSWASEEM APPLE Start: 94-23-6089QWJFM OXIMETRY, CONTINUOUSWASEEM KHANStart: 08-20-2018 MISCELLANEOUS NURSING CARE ORDER (SPECIFY)JV USMANtart: 51-41-3500Jkwqf foot complete minimum 3 viewsEDNI MARYtart: 07-06-5274ARAIF OXIMETRY, CONTINUOUS JV USMANtart: 49-18-3057N-reactive proteinMERCY HOSPITAL TISHOMINGO – [facility] USMANrt: 08-20-2018 SEDIMENTATION RATEBRENDA MARYtart: 28-64-8388LNMDW OXIMETRY, CONTINUOUSWABRENDA MARYtart: 28-30-0563MZHAWLCRX SPIROMETRY RTTUBA CITY REGIONAL HEALTH CARE CORPORATIONEDIN MARYtart: 08-53-9927HTCTQSBN OXYGEN THERAPY PROTOCOLTUBA CITY REGIONAL HEALTH CARE CORPORATIONEDIN MARYtart: 07-62-0959ZHEGU OXIMETRY, CONTINUOUS JV YESSENIAANStart: 28-32-5264Xlsll of magnesiumJV MARYtart: 90-72-4499Xxnso count complete auto&auto difrntl wbcEDIN MARYrt: 35-71-8430TJTPI OXIMETRY, CONTINUOUSWABRENDA MARYtart: 98-37-2679DDCIN OXIMETRY, CONTINUOUSJV APPLE Start: 36-65-7343BZXAC OXIMETRY, CONTINUOUSWAEDIN MARYtart: 55-14-7080KY CONSULT TO ORTHOPEDIC SURGERYMERCY HOSP[facility] USMANrt: 25-08-1054Vjmmujyzuacfu (pct) JVMARISABEL MARYrt: 41-67-3923MXKPE OXIMETRY, CONTINUOUSMDBRENDA MARYtart: 88-71-6930Xyx spinal canal cervical w/o & w/contr matrlJV MARYtart: 31-76-8154Hjp spinal canal lumbar w/o & w/contr matrlMDEM USMANtart: 71-10-3529Ktv spinal canal thoracic w/o & w/contr matrlWAEM YESSENIAANStart: 89-01-5162ODMCV OXIMETRY, CONTINUOUSWABRENDA MARYtart: 46-65-9752GENODQKVF SPIROMETRY RTTUBA CITY REGIONAL HEALTH CARE CORPORATIONEDIN MARYtart: 26-97-9171TZJKFERH OXYGEN THERAPY PROTOCOLTUBA CITY REGIONAL HEALTH CARE CORPORATIONEDIN MARYrt: 62-13-8657KXRVA OXIMETRY, CONTINUOUSWAEM USMANtart: 85-65-8455EF CONSULT TO IV TEAMSHARE [facility] USMANtart: 38-23-9117Jyogd of magnesiumJV APPLE Start: 27-86-7605Egcep count complete auto&auto difrntl wbcWABRENDA MARYtart: 33-71-8871BPXQX OXIMETRY, CONTINUOUSWASEEDIN MARYtart: 52-53-5184JIPGN OXIMETRY, CONTINUOUSWASEEM USMANtart: 82-24-9371CGSAA OXIMETRY, CONTINUOUSWABRENDA APPLE Start: 65-57-8472MOFXN OXIMETRY, CONTINUOUSWASEEM YESSENIAANStart: 02-16-3156MANKW OXIMETRY, CONTINUOUSWASEEM USMANtart: 63-68-5163VFXGWRWZK MONITORINGJV APPLE Start: 72-08-1697WKJYYGRAG SPIROMETRY RTMDBRENDA MARYtart: 05-50-2434ERFAIBCB OXYGEN THERAPY PROTOCOLTUBA CITY REGIONAL HEALTH CARE CORPORATIONEDIN MARYtart: 21-79-4580SXQZP OXIMETRY, CONTINUOUS JV YESSENIAANStart: 29-25-2270Ytkvk of magnesiumWABRENDA MARYtart: 73-24-9175Mtejh count complete auto&auto difrntl wbcMDBRENDA MARYtart: 81-68-1580TXPNQUJCIX, TROUGHWABRENDA MARYtart: 91-92-6714PMAHG OXIMETRY, CONTINUOUSWASEEDIN MARYtart: 69-70-9302WRXPD OXIMETRY, CONTINUOUSWASEEDIN MARYtart: 01-64-8472UBWSE OXIMETRY, CONTINUOUSWASEEM USMANtart: 86-21-9024Ntlmcpfrislji (pct)JVMARISABEL MARYrt: 65-16-8413GPGUP OXIMETRY, CONTINUOUSEDIN MARYtart: 25-37-3801LPISMGY BLOOD #1 JVMARISABEL MARYtart: 37-13-1307KNZVG OXIMETRY, CONTINUOUSWASEEM YESSENIAANStart: 33-28-3800Jftz tthrc r-t 2d w/wom-mode compl spec&colr dWBANNER MD ANDERSON CANCER CENTEREDIN MARYtart: 26-18-1412LTGWNNDGT SPIROMETRY RTMDBRENDA MARYtart: 05-61-3053WIEIZDKK OXYGEN THERAPY PROTOCOLTUBA CITY REGIONAL HEALTH CARE CORPORATIONEDIN MARYtart: 61-60-0997VCWLF OXIMETRY, CONTINUOUSWASEEM YESSENIAANStart: 95-64-8129Bmhnq of magnesiumMDBRENDA MARYtart: 26-19-8258Fahed count complete auto&auto difrntl wbcMDBRENDA MARYtart: 03-05-8786C-reactive protein JV USMANtart: 72-90-3234BMMMLXYJVRSGD RATEWASEEM USMANtart: 92-49-1755FESIO OXIMETRY, CONTINUOUSWASEEM YESSENIAANStart: 29-90-5112Zgje tthrc r-t 2d w/wom-mode compl spec&colr dWASEEDIN MARYtart: 89-21-3571XYINT OXIMETRY, CONTINUOUSWASEEM YESSENIAANStart: 69-18-9291WADRV OXIMETRY, CONTINUOUSWASEEM KHANStart: 54-61-8617MEYYV OXIMETRY, CONTINUOUSWASEEM YESSENIAANStart: 05-10-6271XXQSB OXIMETRY, CONTINUOUS JV YESSENIAANStart: 96-73-0266Rdg-scan xtr veins complete bilateral studyWA YESSENIAtart: 08-28-2759Ggav tthrc r-t 2d w/wom-mode compl spec&colr dWMITCHEL APPLE Start: 75-67-4674Nq head/brain w/o contrast materialWAMERCY HOS[facility] YESSENIAtart: 08-16-2018 Radiologic exam chest 2 viewsMERCY HOSPITAL [facility] YESSENIArt: 51-26-9605SPJOHMIIK SPIROMETRY RT JV YESSENIArt: 91-33-6202RMCNFIDN OXYGEN THERAPY PROTOCOL YESSENIArt: 44-95-2046GNCTG OXIMETRY, CONTINUOUSWASEEM YESSENIAANStart: 80-48-6026AADUBOM ISOLATIONWAMERCY HOSPITAL [facility] [place] USMANtart: 35-04-2668Dqlmm of lactateWASE YESSENIAtart: 15-43-0263NPOXGWO, IONIZEDWASEEM YESSENIAtart: 07-74-3515LH CONSULT TO IV TEAM JV YESSENIArt: 32-35-3042Roopc of magnesiumWASEEM YESSENIAtart: 87-90-9533Mmhvp count complete auto&auto difrntl wbcMERCY HOSPITAL [facility] [place] rt: 91-84-1350Ezcayeuxtml time JV USMANtart: 07-21-3927TOHSF OXIMETRY, CONTINUOUSWASEEM YESSENIAANStart: 43-80-8228ZFAWQ WEIGHTSWAMERCY HOSPITAL [facility] [place] YESSENIAANStart: 70-89-5182SEYDY OXIMETRY, CONTINUOUS JV YESSENIAANStart: 57-22-9166RAJ 12-LEADWAMISSOURI SOUTHERN HEALTHCARErt: 14-28-5872Tbvlw of lactateWAMISSOURI SOUTHERN HEALTHCARErt: 85-91-5022Bptelqax I.cardiac mass concMERCY HOSPITAL [facility]OM[facility] [place] rt: 84-20-4423FFEAC OXIMETRY, CONTINUOUSSHRINERS HOSPITALS FOR CHILDRENrt: 80-29-1167GFYGZERF RT PROTOCOLMISSOURI SOUTHERN HEALTHCARErt: 48-45-1886TAEENTYOJZ ANTIGEN, URINEMERCY HOS[facility] [place] rt: 18-92-5664SWLHV PNEUMONIAE ANTIGENMERCY HOS[facility] [place] rt: 77-99-0526RT CONSULT TO NEUROLOGYMISSOURI SOUTHERN HEALTHCARErt: 87-88-4879Qbwlf of lactateMERCY [facility] [place] rt: 30-84-2947Xynuplb bacterial blood aerobic w/id isolates rt: 70-71-7370FFIQOEK BLOOD #1 rt: 41-71-7757RANEWKSQCU PNEUMONIAE ANTIBODY, IGMSHRINERS HOSPITALS FOR CHILDRENrt: 54-44-3821Ysirzfewxuggw (pct)JV rt: 80-37-2009Rtyalqeb I.cardiac mass concrt: 54-00-0739VBXJTLNH PRIVILEGES WITH ASSISTANCEMISSOURI SOUTHERN HEALTHCARErt: 62-15-4070JFZQEKIIC MONITORINGMISSOURI SOUTHERN HEALTHCARErt: 13-34-5275Dsp bact xcpt urine blood/stool aerobic isolNEVADA REGIONAL MEDICAL [facility] Start: 04-45-2729ACZVTGNRD DEEP BREATHING AND COUGHING rt: 29-29-9936ZKQC CODEWAMISSOURI SOUTHERN HEALTHCARErt: 26-49-6091ZTNWSOITY SPIROMETRY RTMERCY H[facility] [place] rt: 65-42-1780HGWBNCJZ OXYGEN THERAPY PROTOCOLMISSOURI SOUTHERN HEALTHCARErt: 30-76-6473ASYNAZ AND OUTPUT rt: 57-19-6412IP CONSULT TO INFECTIOUS DISEASESSAC-OSAGE HOSPITALrt: 71-18-3221Pqfevexngev observation Gram stain Nom (Unsp spec)JV KHrt: 93-20-3633PGGNIO PHYSICIAN (SPECIFY)JVSOUTHEAST MISSOURI COMMUNITY TREATMENT CENTERrt: 14-21-1525JEBWBGHN TO DOSE VANCOMYCINMISSOURI SOUTHERN HEALTHCARErt: 00-84-7587AASIB INTERMITTENT PNEUMATIC COMPRESSION DEVICEWASEEM [facility] CENTERtart: 23-55-5066PJUWG OXIMETRY, CONTINUOUSWASEEM ANStart: 52-95-3790MIHZJ SIGNSWASEEM [facility] MEDICAL CENTERtart: 08-07-9832LHFHISX STATUS (DIRECT)JV MARYtart: 12-86-1063LbxyzulawzaXlxdb Back Work Phone: start: 62-90-7912Utepebslknd observation [Identifier] in Cervix by Cyto Armani Casas Plan of Treatment DateCare ActivityDetailAuthorStart: 66-71-0620Rkenc panelLipidsBuchanan General HospitalStart: 54-74-3566Llyvj panelMary Washington HospitalStart: 94-40-1693Iytwgyfp Vaccine (1 of 2)Shingles Vaccine (1 of 2)[facility] [place] Start: 02-74-8408Bpzjz panelLipBon Secours St. Francis Medical CenterStart: 12-10-2027 Screening for malignant neoplasm of colonBon [facility] HospitalStart: 30-03-6632Yujdy panelLipidsLIFEPOINT HEALTHStart: 22-03-0805Oprffzmjj for malignant neoplasm of breastBreast cancer screenBon [facility] myGreek Start: 69-53-9487SUV test (Diabetes, CKD 3-4, OR last GFR 15-59)GFR test (Diabetes, CKD 3-4, OR last GFR 15-59)[facility] HospitalStart: 07-21-2026 GFR test (Diabetes, CKD 3-4, OR last GFR 15-59)GFR test (Diabetes, CKD 3-4, OR last GFR 15-59)[facility] ChoiceAugusta HealthStart: 66-43-2846CPH test (Diabetes, CKD 3-4, OR last GFR 15-59)GFR test (Diabetes, CKD 3-4, OR last GFR 15-59)[facility] HospitalStart: 13-26-3825YOX test (Diabetes, CKD 3-4, OR last GFR 15-59)GFR test (Diabetes, CKD 3-4, OR last GFR 15-59)[facility] [employer] Start: 89-14-7396Gvkkr panelSelect Medical Specialty Hospital - [facility] North HealthStart: 36-17-5904VEN test (Diabetes, CKD 3-4, OR last GFR 15-59)GFR test (Diabetes, CKD 3-4, OR last GFR 15-59)[facility] HospitalStart: 20-13-0248Ymicijxrit A1c kcrsegylslmP4J test (Diabetic or Prediabetic)[facility] HospitalStart: 81-75-0320ISO test (Diabetes, CKD 3-4, OR last GFR 15-59)GFR test (Diabetes, CKD 3-4, OR last GFR 15-59)[facility] HospitalStart: 38-91-0282Vbtwekiymh MonitoringDepression MonitoringBon Pike Community HospitalStart: 84-08-0923OIF test (Diabetes, CKD 3-4, OR last GFR 15-59)GFR test (Diabetes, CKD 3-4, OR last GFR 15-59)[facility]art: 25-06-9347Csejftmkrw A1c nylveotqsmoN7P test (Diabetic or Prediabetic)[facility] HospitalStart: 10-12-2025 End: 76-61-0733Xfecgbt encounter cxivrtnoj54/08/2026 10:30 AM EST Office Visit [facility] [address] [place] [address] [place] [address] Dimas Adair MD [address] [place] [address] [facility] Th[facility] PhysiciansStart: 10-11-2025 End: 21-25-2136LO Head and neck soft tissueUS Soft Tissue Neck Imaging Routine Thyroid nodule Expected: 10/11/2025, Expires: 10/11/2026[facility] Work Phone: Comment on above:Expected: 10/11/2025, Expires: 10/11/2026Start: 08-29-2025 End: 62-19-9431Yjhwtnw encounter eagysehsk18/25/2025 11:45 AM EST Office Visit [facility] [address] [place] [address] Lynn Block MD [address] [place] [address], [place] [address] TERRY Gutierrez [facility] Start: 08-23-2025 End: 67-26-3036Orkrcux encounter ndxkamuus56/19/2025 1:00 PM EST Office Visit [facility] [address] [place] [address] Jennie Van, MENTAL HEALTH COUNSELOR-INCLUSION TEACHER [address] [place] [address] SHANNANRubén MccarthyMurchison NeurologyStart: 08-03-2025 End: 26-64-4827Icfatua encounter /30/2025 11:00 AM EDT Office Visit [address], [place] Felipe Adam MD [address] [place] [address] Return in about 3 months (around 07/19/2025).[facility] on above:Return in about 3 months (around 07/19/2025).Start: 07-27-2025 End: 94-89-2335Cxbblsd encounter nvhdphxmu05/23/2025 11:00 AM EDT Office Visit [address], [place] Felipe Adam MD [address] [place] [address], [place] [address] Return in about 3 months (around 07/19/2025).[facility] on above:Return in about 3 months (around 07/19/2025).Start: 75-89-3333IKSDS-19 Vaccine ( season)COVID-19 Vaccine ( season)[facility]parShelby Memorial HospitalStart: 05-31-2025 End: 49-22-2134JX Cervical spine 4 or 5 ViewsXR cervical spine complete 4 to 5 views Imaging Routine Cervical paraspinal muscle spasm Expected: 05/31/2025, Expires: 05/24/2026[facility] Work Phone: Comment on above:Expected: 05/31/2025, Expires: 05/24/2026Start: 07-56-8574Dmjqh panelLipid [facility], KYStart: 05-24-2025 End: 94-90-8998Rmpvgnn encounter cdgdqazqt46/20/2025 11:30 AM EDT Office Visit NOMRubén [facility] [address] [place] [phone] Jennie Van APRNLAHEY MED[facility], [facility] [address] [facility] [place] [address] NOMRubén Gutierrez NeurologyStart: 05-17-2025 End: 17-06-3301Xchhaib encounter yaqnmbbny03/13/2025 1:20 PM EDT Office Visit [facility] [address] [place] [address] Trace Casas MD [address] [facility] [address] [address] [facility] NEURStart: 05-15-2025 End: 18-65-8130Lxmtmwv encounter iuwffjgzh67/11/2025 1:15 PM EDT Office Visit [address] [address] Felipe Adam MD [address] [place] [address] Return in about 6 months (around 05/15/2025).[facility] on above:Return in about 6 months (around 05/15/2025).Start: 50-34-2111FWU test (Diabetes, CKD 3-4, OR last GFR 15-59)GFR test (Diabetes, CKD 3-4, OR last GFR 15-59)[facility] HEALTHStart: 68-78-5632Hrbgmdtoj vaccinationBuchanan General HospitalStart: 05-02-2025 Hemoglobin A1c weyohagvowvQ9S test (Diabetic or Prediabetic)[facility]art: 05-02-2025 End: 97-62-3077Klyoutd encounter iwfjamkpk45/29/2025 2:00 PM EDT Office Visit [facility] B [address] [place] [phone] Fozia Meng, BUSINESS MANAGEMENT SPECIALIST [address], [address] [place] [phone] [facility] NEUR BStart: 05-01-2025 End: 75-88-4265Vxrbjdb encounter wqycgpnwt19/28/2025 4:00 PM EDT Office Visit [facility] [address] [place] [address] Robbin Sánchez, DPM [address] [place] [address] NOMS WWW PODIATRYStart: 04-20-2025 End: 65-72-9741Hbmljio encounter fggxpjgpu00/17/2025 12:45 PM EDT Office Visit [facility] [address] [place] [phone] Robbin Sánchez, DPM [address] [place] [address] ArrivedNOMS WWW PODIATRYComment on above:ArrivedStart: 04-06-2025 End: 22-60-6137Duhytji encounter xaoxxbdzs90/03/2025 4:30 PM EDT Office Visit [facility] [address] [place] [address] Robbin Sánchez, DPM [address] [place] [address] ArrivedNOMS [facility] PODIATRYComment on above:ArrivedStart: 04-06-2025 End: 46-93-9169Jyjwmkxnxr [Mass/volume] in Serum or PlasmaCreatinine, Serum Lab Routine Right foot pain Expected: 04/06/2025 (Approximate), Expires: 04/06/2026 [facility] HealthcareComment on above:Expected: 04/06/2025 (Approximate), Expires: 04/06/2026Start: 04-06-2025 End: 08-56-8998JB Foot - right WO and W contrast IVMR foot right w and wo IV contrast Imaging STAT Right foot pain Expected: 04/06/2025, Expires: 04/06/2026 [facility] Work Phone: comment on above:Expected: 04/06/2025, Expires: 04/06/2026Start: 03-14-2025 End: 76-84-4645Plhxpoa encounter procedureNOMS [facility] NEUR BStart: 02-13-2025 End: 48-53-9992Ccspgdn encounter uewxxooje71/12/2025 1:00 PM EDT Office Visit [facility] [address] [address] Trace Casas MD [address] [facility] [address] [place] [address] [facility] NEURStart: 87-82-4025Cnjxflsjcj MonitoringDepression MonitoringBON [facility] OHIOStart: 11-15-2024 End: 34-36-6517Smpkhjm encounter xozqsvqcq04/11/2025 2:45 PM EST Office Visit [facility] [address] [place] [address] Felipe Adam MD [address] [place] [address] 6 [facility] CenterComment on above:6 moStart: 11-14-2024 End: 49-59-5374Kiqtyka encounter procedureNOMS [facility] NEURComment on above:Arrived Start: 11-11-2024 End: 90-14-1551Ktzbimy encounter tgapkfcbk94/07/2025 1:00 PM EST Office Visit [facility] [address] [place] [address] Felipe Adam MD [address] [place] [address] 6 [facility] CenterComment on above:6 moStart: 15-23-5442Cztdjzfmt for malignant neoplasm of cervixBON SECOURS PARKVIEW HEALTHStart: 09-14-2024 End: 70-50-1358Tbnxgtv encounter lugeqisru22/11/2024 11:20 AM EST Office Visit [facility] [address] [facility] [address] [place] [address] Fozia Meng, BUSINESS MANAGEMENT SPECIALIST [address] [phone] ArrivedNOMS [facility] NEURComment on above: ArrivedStart: 82-85-8387GJzR/Tdap/Td vaccine (2 - Td or Tdap)DTaP/Tdap/Td vaccine (2 - Td or Tdap)[facility] HospitalStart: 26-45-5251ENzA/Tdap/Td vaccine (2 - Td)DTaP/Tdap/Td vaccine (2 - Td)[facility] KYStart: 85-02-7751Jckzxtn vaccinationOhioHealthStart: 09-05-2024 End: 96-09-1121Idpjxvs encounter ralgflhve43/02/2024 1:00 PM EST Office Visit [facility] [address] [facility] [address] [place] [address] Trace Casas MD [address] [address] [facility] NEURStart: 08-18-2024 End: 85-60-3466Lrhkith encounter /14/2024 1:30 PM EST Office Visit [facility] [address] [place] [address] Luis Mclean, PACharitoC [address] [facility] [address] [place], [place] [phone] 1 yr med chkMDayton Children's Hospital UrologyComment on above:1 yr med chkStart: 08-02-2024 End: 44-66-9165Gyfzwty encounter yrtrlsiwt80/29/2024 10:45 AM EDT Office Visit [facility] WN NEURO [address] [place] [address] Cheryl Miles DO [address] [place] [address] NOMS WNZ NEUROStart: 07-11-2024 End: 07-33-2525Nlzrfxcsiwrd consultation with bpgqqjr2207/11/2024 11:30 AM EDT Telemedicine [facility] NEURO [address] [place] [place] [address] [address] Janel Allen BUSINESS MANAGEMENT SPECIALIST [address] [place] [address] [facility] NEURO 210Start: 06-10-2024 End: 90-39-7496Fktedad encounter syctouprx41/06/2024 10:20 AM EDT Office Visit [facility] SWS NEUR [address] [facility] [address] [place] [phone] Trace Casas MD [address] [place] [address] ArrivedNOMS SWS NEURComment on above: ArrivedStart: 91-42-6653POELD-19 Vaccine ( season)COVID-19 Vaccine ( season)[facility]art: 37-88-7064WQMHJ-19 Vaccine ( season)COVID-19 Vaccine ( season)[facility]Start: 06-05-2024 Influenza vaccinationInfluenza Vaccine (#1)[facility] HospitalStart: 56-05-6186Grvauewba for malignant neoplasm of colonBon [facility] Hospitalart: 14-91-7678RSY test (Diabetes, CKD 3-4, OR last GFR 15-59)GFR test (Diabetes, CKD 3-4, OR last GFR 15-59)[facility] Hospitalart: 00-25-6296Mtlwxmzg screenDiabetes screen [facility] Hospitalart: 05-12-2024 End: 62-41-1355Eswleid encounter /08/2024 11:00 AM EDT Office Visit [facility] Part of [address] [address] Lina Echols MD [facility] [place] [address] BUCK (obstructive sleep apnea)[facility] Part of [facility] HospitalComment on above: BUCK (obstructive sleep apnea)Start: 73-56-7814Yskxs panelLipid [facility], KYStart: 27-45-8409Hzvjl screenLipid [facility], [place] Start: 09-19-6261Vdvdmjueo vaccinationFlu vaccine (#1)[facility] Start: 89-47-2601Aywlkmieug MonitoringDepression MonitoringBON [facility] Hospitalart: 45-34-6140OUG test (Diabetes, CKD 3-4, OR last GFR 15-59)GFR test (Diabetes, CKD 3-4, OR last GFR 15-59)[facility]art: 02-06-2024 Hemoglobin A1c zmnyxjtuqhvK9R test (Diabetic or Prediabetic)[facility] Hospitalart: 08-13-2023 End: 19-51-4347Bjexrno encounter procedureMercer County Community Hospital [place] UrologyStart: 06-22-2023 End: 90-79-1663Ohnckwd encounter drfggesnu37/18/2023 11:15 AM EDT Office Visit [facility] [address] [place], [place] Felipe Adam MD [address] [place] [address] [facility]: 06-05-2023 Influenza vaccinationSequential Influenza Vaccine (Season Ended)[facility] Hospitalart: 87-53-2712Tnulofgtt vaccinationBON [facility]: 04-14-2023 End: 78-94-9791Redhjrc encounter ywpcgztzc43/11/2023 Office Visit Family Medicine Felipe Adam MD [address] [place] [address] [facility]: 69-47-6373Ppwihhjqhe A1c dlhivperqacI7Z test (Diabetic or Prediabetic)[facility]: 93-27-7906Ttumatgorj MonitoringDepression MonitoringBON [facility] Start: 22-50-3365Pptebxv and physical examination, annual for health maintenance Wellness VisitOhioHealthStart: 12-25-2022 End: 12-31-7448Smagyyd encounter rawjyhaev49/23/2023 Office Visit Infectious Diseases Dav Hartman MD [address] [address] [facility]Start: 49-22-0974Heuitrhu screenDiabetes [facility]art: 08-07-2022 End: 88-62-1466Wsyjuxh encounter yaprkwiol97/03/2022 Office Visit Urology Luis Mclean PA-C [address] [place] [address] [facility] UrologyStart: 07-15-2022 End: 84-29-5871Zqioair evaluation of patient and teumdl1707/15/2022 Nurse Only Family MedicineAvera Holy Family HospitalwichStart: 07-09-2022 End: 14-06-6904Kgpkbsi encounter xoynkdckc24/05/2022 Appointment IP Unit Samantha Lino RD, LD [facility] Diet and NutritionStart: 06-05-2022 Influenza vaccinationSelect [facility] Special[facility] HealthStart: 52-43-3663Hotqddelje measurementSelect Medical Specialty Hospital [facility] HealthStart: 87-97-3188Rdhuwhqmr [Moles/volume] in Serum or PlasmaPotassiumSelect Medical Specialty Hospital - [facility] North HealthStart: 71-04-8725Xevkpbytb monitoringPotassium monitoringSelect Medical Specialty [facility] Health Start: 48-08-7591Yltrprugnc measurementCreatinine monitoringMercer County Community Hospital Work Phone: start: 46-88-8813Tbnklrwtq monitoringPotassium monitoringMercer County Community Hospital Work Phone: start: 66-52-4860Rxhkliphv vaccinationFlu vaccine (#1) [facility] HEALTHStart: 01-94-7463Derykfjka for malignant neoplasm of cervixOhioHealthStart: 02-05-2022 End: 74-63-0945Olhqlfw encounter azejmunsw86/04/2022 Appointment Physical Therapy Christel Donohue PTMWHZ Physical TherapyStart: 02-03-2022 End: 45-20-6346Lirjnvj encounter procedureMWHZ Physical TherapyStart: 01-30-2022 End: 58-50-9585Fydunra encounter procedureBrown [facility] UrologyStart: 01-29-2022 End: 40-39-7676Tkgzuxn encounter dzhojotfz76/27/2022 Appointment Physical Therapy Beverly Rangel PTAMWHZ Physical TherapyStart: 01-27-2022 End: 62-83-2237Ppkrzvv encounter iubglcakh50/25/2022 Appointment Physical Therapy Christel Donohue PTMWHZ Physical TherapyStart: 01-24-2022 End: 33-15-6825Uxjsytd encounter czuhvishp32/22/2022 Appointment Physical Therapy Vanessa Garcia PTMWHZ Physical TherapyStart: 01-22-2022 End: 79-88-9086Aqpcjjv encounter sgusvhmzm03/20/2022 Appointment Physical Therapy Beverly Rangel PTAMWHZ Physical TherapyStart: 01-17-2022 End: 17-22-4531Xkollzs encounter /15/2022 Appointment Physical Therapy Beverly Rangel PTAMWHUzair Physical TherapyStart: 01-10-2022 End: 21-08-9804Wcmcmej encounter /08/2022 Appointment Physical Therapy Christel Donohue PTMWHZ Physical TherapyStart: 01-08-2022 End: 48-67-0554Jlullpj encounter lsttvkldy64/06/2022 Appointment Physical Therapy Beverly Rangel PTAMWHUzair Physical TherapyStart: 01-02-2022 End: 62-00-5311Wpjfqmn encounter vfswfyksu29/31/2022 Appointment Occupational Therapy Judi Marie OTA [address] [place] [address] [facility] Occupational TherapyStart: 35-62-7722Fawosbpg screenDiabetes screen [place], [place]Start: 12-31-2021 End: 28-54-4150Azocurs encounter procedureMZ Physical TherapyStart: 12-30-2021 End: 21-03-5587Ijtoosl encounter pdabvndtw82/28/2022 Appointment Occupational Therapy Cheryl Herman OTMWHUzair Occupational TherapyStart: 12-27-2021 End: 63-09-2515Xokrmuh encounter kowqwmyrk72/25/2022 Appointment Occupational Therapy Eve Gaspar OTAMWHZ Occupational TherapyStart: 11-14-2021 End: 33-72-7175Ezkvlwu encounter sqnunpxam43/10/2022 Office Visit Family Medicine Felipe Adam MD [address] [place] [address] [phone] [facility]Start: 71-77-1036Iuawvjbchi MonitoringDepression MonitoringMercy HealthStart: 56-08-9577Fwcukndmff measurementCreatinine monitoringMercy Health Work Phone: start: 94-90-7655Qfskwtfpv monitoringPotassium monitoringMercy Health Work Phone: start: 08-01-2021 End: 44-30-3512Dqwsout encounter rfyzewybi18/28/2021 Office Visit Urology Lita Weeks MD [address] [facility], [address] [place], [place] [phone] [facility] UrologyStart: 06-05-2021 Influenza vaccinationMercer County Community HospitalStart: 03-58-8169Uqhbobqkzi measurement Creatinine monitoringMiami Valley Hospital, KYStart: 80-52-1092JlR9a (Bld) [Mass fraction]A1C test (Diabetic or Prediabetic)[facility], [place]Start: 05-25-2021 Hemoglobin A1c uqcqorqqpzdB1O test (Diabetic or Prediabetic)[facility] [employer] Work Phone: start: 08-56-8589Kdxfxootw monitoringPotassium [facility], KYStart: 11-13-2020 End: 12-32-3604Jmylnl Visit11/13/2020 Office Visit Family Medicine Felipe Adam MD [address] [place] [address] [phone] [facility]Start: 85-09-8439Eqhdxdghg monitoringPotassium monitoringMiami Valley Hospital, KYStart: 10-23-2020 End: 59-06-8497Tlsmpi Visit10/23/2020 Office Visit Infectious Diseases Dav Hartman MD [address] [facility] [address] [place], [place] [address] [facility]Start: 15-04-9747QwL0v (Bld) [Mass fraction]A1C test (Diabetic or Prediabetic)[facility], KYStart: 16-14-2573Jshryyzfac measurementCreatinine monitoringSelect Medical Specialty [facility] Health [place], [place]Start: 20-47-7062Zvzcukjbxs monitoringCreatinine monitoringSelect Medical Specialty [facility] Health [place], [place]Start: 49-80-1387Zndaugoxh monitoringPotassium monitoringSelect Medical Specialty [facility] Health- [place], [place]Start: 06-12-2020 End: 06-82-1012Kalgtq Visit06/12/2020 Office Visit Infectious Diseases Dav Hartman MD [address] [place], [place] [address] [facility], [facility] HospitalStart: 92-62-2711Hbumuedit vaccinationFlu vaccine (#1)[facility]: 86-93-9491Swrggacu cancer screenCervical cancer screenFirelands Regional Medical Center [facility]: 26-66-6118Vlttfgzva for malignant neoplasm of cervixIowaHealthStart: 11-01-2019 End: 06-71-9066Zxwmnx Visit11/01/2019 Office Visit Infectious Diseases Dav Hartman MD [address] [place], [place] [address] [facility], [facility] HospitalStart: 07-28-2019 End: 92-04-3676Abevqu Visit07/28/2019 Office Visit Infectious Diseases Dav Hartman MD [address] [place] [address] [phone] [facility], [facility].Start: 06-27-2019 End: 21-90-1674Nlijr Only06/27/2019 Nurse Only Family [facility]Start: 17-49-2315Emrrtneft vaccinationFlu vaccine (#1)[facility]: 39-20-3489Ozkznjgwx vaccination givenSEQUENTIAL INFLUENZA VACCINE (Season Ended)[facility]HealthStart: 95-52-0527Qzoeolpxk for malignant neoplasm of breastIowaHealthStart: 14-75-2080Jpfesehln vaccinationINFLUENZA VACCINE (#1)[facility] Work Phone: Start: 03-23-2018 End: 10-80-9135NtxsakstilPtcfFncqtk Primary Care Women's HealthStart: 2009 Screening for malignant neoplasm of cervixHPV (without or with Pap)[facility] HEALTHStart: 61-76-9938Svgrjtkid for malignant neoplasm of cervixPAP SMEAR [facility] Work Phone: Start: 49-36-6365Jgjudowvr B vaccine (1 of 3 - 19+ 3- dose series)Hepatitis B vaccine (1 of 3 - 19+ 3-dose series)Bon Bulmarolynnette [facility] HospitalStart: 03-37-1004Zddqp diphtheria, tetanus and acellular pertussis (DTaP) vaccinationTDAP (ADULT)[facility] Work Phone: Start: 40-36-5082Ghystgtxe C screeningHepatitis C ScreeningHenry County HospitalStart: 21-34-2237Yjofhgl vaccinationTETANMarymount Hospital Work Phone: Start: 95-50-4912JTGMY-19 Vaccine (1)COVID-19 Vaccine (1)[employer] Work Phone: start: 61-19-3306YHD screenHIV screenMiami Valley Hospital, KYStart: 63-68-7685JAX screeningHIV screenMercer County Community HospitalStart: 92-10-3084JDC screeningHIV SCREENING [facility] Work Phone: Start: 68-09-4938YTNXP-19 Vaccine (1)COVID-19 Vaccine (1)[employer] Work Phone: start: 99-81-1738Pmdaznplqm MonitoringDepression MonitoringMercer County Community HospitalStart: 51-21-4921Ubowsqokka screening using PHQ-9 (Patient Health Questionnaire 9) scoreOhioHealthStart: 93-36-1282Aqrmh screening for proteinUrine MicroalbuminOhioHealthStart: 63-66-0448Omayiuamnukz Vaccine: Ped or At-Risk (1 - PCV)Pneumococcal Vaccine: Ped or At-Risk (1 - PCV)[facility]HealthStart: 89-43-1469JBSVT-19 Vaccine (1)COVID-19 Vaccine (1)[facility] HospitalStart: 1982 History and physical examination, annual for health maintenanceCentra [facility] Visit IowaHealthStart: 90-65-9169MUXIP-19 Vaccine (#1)COVID-19 Vaccine (#1)[facility]: 70-88-1208Cmevqfiqh B vaccine (1 of 3 - 3-dose series) Hepatitis B vaccine (1 of 3 - 3-dose series)[facility]: 43-17-6530Ujdchanvw for malignant neoplasm of colonMiioKettering Health Main Campus End: 43-63-2023PDXKC-19COVID-19 Lab Routine Suspected COVID-19 virus infection 1 Occurrences starting 02/13/2021 until 02/13/2021[facility] Work Phone: comment on above:1 Occurrences starting 02/13/2021 until 02/13/20210746MXCXS-65JERQJ-38 Lab Routine Suspected COVID-19 virus infection 02/13/2021 3:06 PM [employer] Phone: End: 45-08-8925UTLKQ-19 AmbulatoryCOVID-19 Ambulatory Lab Routine SOB (shortness of breath) 1 Occurrences starting 08/08/2020 until 08/08/2020[facility], ALComment on above:1 Occurrences starting 08/08/2020 until 08/08/2020COVID-19 AmbulatoryCOVID-19 Ambulatory Lab Routine SOB (shortness of breath) 08/08/2020 4:[address] [facility], [place] End: 29-39-8973Wlzqzajfbi [Mass/volume] in UrineCreatinine, Random Urine Lab Routine Once for 1 Occurrences starting 05/20/2021 until 05/20/2021[facility] Phone: comment on above:Once for 1 Occurrences starting 05/20/2021 until 1Creatinine [Mass/volume] in UrineCreatinine, Random Urine Lab Routine 05/20/2021 7:57 PM [employer] Phone: End: 70-81-3789Tjwzcjh, UrineCulture, Urine Microbiology Routine Acute cystitis with hematuria 1 Occurrences starting 04/13/2021until 04/13/2021[facility] Work Phone: comment on above:1 Occurrences starting 04/13/2021 until 1Culture, UrineMerOxynade Phone: End: 42-43-0274Taqbrra, UrineCulture, Urine Microbiology Routine Difficult or painful urination 1 Occurrences starting 05/27/2021 until 05/27/2021[employer] Phone: combkhy on above:1 Occurrences starting 05/27/2021 until 05/27/2021 End: 16-11-5614Fykqlyh, UrineCulture, Urine Microbiology Routine Acute cystitis with hematuria Recurrent UTI 1 Occurrences starting 06/11/2021 until 06/11/2021 [employer] Phone: compgtl on above:1 Occurrences starting 06/11/2021 until 06/11/2021 End: 67-03-4868Xoizbec, UrineCulture, Urine Microbiology Routine Frequent UTI Urinary urgency Urinary frequency 1 Occurrences starting 07/11/2021 until 07/11/2021[employer] Phone: comrldw on above:1 Occurrences starting 07/11/2021 until 07/11/2021 End: 83-42-5804Vyiazhx, UrineCulture, Urine Microbiology Routine Frequent UTI Urinary urgency Urinary frequency 1 Occurrences starting 08/01/2021 until 08/01/2021[employer] Phone: comufxs on above:1 Occurrences starting 08/01/2021 until 08/01/2021 End: 97-34-3417Gkqalbq, UrineCulture, Urine Microbiology Routine Acute cystitis with hematuria 1 Occurrences starting 04/28/2022until 04/28/2022[employer] Phone: comwtsm on above:1 Occurrences starting 04/28/2022 until 04/28/2022 End: 08-29-8738Njytkjc, UrineBON [employer] Phone: comqbjy on above:1 Occurrences starting 02/05/2023 until 02/05/2023 End: 83-57-4970Bsadiod, Wound (with Gram Stain)Bon wufooComment on above:One Time for 1 Occurrences starting 04/04/2025 until 04/04/2025 End: 95-52-6651EPF Breast - bilateral screeningBon SecHalozyme TherapeuticsComment on above:1 Occurrences starting 02/15/2025 until 02/15/2025 End: 23-89-3717Tnhbiucjxg A1c/Hemoglobin.total in BloodBON SECSmith [employer] Work Phone: comment on above:1 Occurrences starting 04/12/2022 until 04/12/2022 End: 68-65-0744Oyuimqrxrr A1c/Hemoglobin.total in BloodBON SECSmith [facility] Associates Work Phone: Comment on above:Once for 1 Occurrences starting 02/05/2023 until 02/05/2023 End: 98-63-3882Dfjfufqzel A1c/Hemoglobin.total in BloodBon SecHalozyme Therapeutics Comment on above:1 Occurrences starting 08/02/2025 until 08/02/2025 End: 91-44-9229Jbaj Sleep StudySouthcoast Behavioral [facility] Hospitale [facility] Routine One Time for 1 Occurrences starting 08/29/2019 until 08/29/2019[facility] DiagnosticsPAR[facility] [place] Comment on above:One Time for 1 Occurrences starting 08/29/2019 until 08/29/2019 End: 58-51-0063Spnwezhutrsvx Acid, SerumMethylmalonic Acid, Serum Lab Routine Once for 1 Occurrences starting 09/24/2019 until 09/24/2019[facility] Phone: comgixr on above:Once for 1 Occurrences starting 09/24/2019 until 09/24/2019Methylmalonic Acid, SerumMethylmalonic Acid, Serum Lab Routine 09/24/2019 9:33 AM [employer] Work Phone: End: 78-60-6054Eemvqxq Ab [Titer] in Serum by ImmunofluorescenceANA Lab Routine Once for 1 Occurrences starting 09/24/2019 until 09/24/2019[facility] Phone: comxzpj on above:Once for 1 Occurrences starting 09/24/2019 until 09/24/2019Nuclear Ab [Titer] in Serum by ImmunofluorescenceANA Lab Routine 09/24/2019 9:33 AM ESTAdvanced In Vitro Cell Technologies Phone: End: 16-65-3900Qgurcat, urine, randomProtein, urine, random Lab Routine Once for 1 Occurrences starting 05/20/2021 until 05/20/2021[facility] Phone: comment on above:Once for 1 Occurrences starting 05/20/2021 until 1Protein, urine, randomProtein, urine, random Lab Routine 05/20/2021 7:57 PM [facility] Phone: End: 03-17-1969Etabbwmpmomky RateSedimentation Rate Lab Routine MRSA (methicillin resistant Staphylococcus aureus) septicemia (HCC) 1 Occurrences starting 12/14/2019 until 12/14/2019[facility] HospitalTerabitzComment on above:1 Occurrences starting 12/14/2019 until 12/14/2019Sedimentation RateSedimentation Rate Lab Routine MRSA (methicillin resistant Staphylococcus aureus) septicemia (HCC) 12/14/2019 12:39 PM [place] End: 02-03-1004Eqgqydqd syndrome-A extractable nuclear antibodySjogrens syndrome-A extractable nuclear antibody Lab Routine Once for 1 Occurrences starting 09/24/2019 until 09/24/2019[facility] Phone: comment on above:Once for 1 Occurrences starting 09/24/2019 until 09/24/2019Sjogrens syndrome-A extractable nuclear antibody Sjogrens syndrome-A extractable nuclear antibody Lab Routine 09/24/2019 9:33 AM [employer] Phone: End: 98-07-7502Bfikfyll syndrome-B extractable nuclear antibodySjogrens syndrome-B extractable nuclear antibody Lab Routine Once for 1 Occurrences starting 09/24/2019 until 09/24/2019[facility] Phone: compshu on above:Once for 1 Occurrences starting 09/24/2019 until 09/24/2019Sjogrens syndrome-B extractable nuclear antibody Sjogrens syndrome-B extractable nuclear antibody Lab Routine 09/24/2019 9:33 AM [employer] Phone: End: 66-78-1672Ckrma Study with PAP TitrationSleep Study with PAP Titration Sleep Center Routine One Time for 1 Occurrences starting 09/12/2019 until 09/12/2019[facility] Phone: comment on above:One Time for 1 Occurrences starting 09/12/2019 until 09/12/2019 End: 08-49-6261Vjlrfmv K1Wonlvnw B6 Lab Routine Once for 1 Occurrences starting 09/24/2019 until 09/24/2019[facility] Phone: comment on above:Once for 1 Occurrences starting 09/24/2019 until 09/24/2019Vitamin K5Xdvhsvl B6 Lab Routine 09/24/2019 9:33 AM [employer] Phone: XR Cervical spine 4 or 5 ViewsXR cervical spine complete 4 to 5 views Imaging Routine Cervical paraspinal muscle spasm 512:45 PM EDTN[facility] Immunizations Immunization DateImmunizationNotesCare GthwuegrRbwdufij38-01-4507oastvdc toxoid, reduced diphtheria toxoid, and acellular pertussis vaccine, adsorbedBilly Back [facility] [place] Payers DatePayer CategoryPayerPolicy [id number] Care HMO (unspecified)[facility] HMO/CHOICE PLUS/DULCE/DULCE PLUS [id number] Health Insurance [id number]5992.86491-63-4845Wrvzsaf Health [id number] 1.2.840.362723.1.13.239.2.7.3.424861.32419-51-9132Bueg-mpt [id number] Cross Blue Shield (Indemnity or Managed Care) - Out of StateBCBS OUT OF STATE [facility] Member Subscriber Plan / Payer (Effective 2017-Present) Name: Celina Gaspar Relation to Subscriber: Spouse Name: ROBIN AGSPAR Date of : 1980 Address: [address] [place] [address] Payer ID: [id number] (NAIC) Type: Not on file Address: [facility] [address] [place] [phone] [id number] [id number] 1.2840.581679.1.13.239.2.7.3.862467.315 [id number] 2014MedicaidCARESOURCE MANAGED MEDICAID [facility] MEDICAID xxxxxxxxxxx 2014-Presentxxxxxxxxxxx [id number] 840.1.291518.3.57[id number] .1.389674.3.57[id number] 2.16840.1.017858.3.57[id number] 2.16840.1.817053.3.57[id number] 2.16840.1.256919.3.579.2.[id number] 2.840.1.890248.3.57[id number] 2.840.1.184708.3.57[id number] 2.840.1.449230.3.579.[id number] 2.840.1.283172.3.579.2.40893-19-1975Ocmpcyd1075560 2.840.1.948940.3.579.2.37371-14-3980Qxdgtmw3192782 2.840.1.296223.3.579.2.84597-50-5986Qgvaykh9574871 2.840.1.799378.3.579.[id number] 2.840.1.017216.3.57[id number] 2.840.1.144197.3.579.2.82029-18-2318Yalzyii67810221 2.16840.1.392914.3.579.[id number] 2.840.1.459006.3.579.2.[id number] 2.0.1.709889.3.579.2.1[id number] 2..1.928912.3.579.2.763942-99-9772Vwxnqzt16196581 2.0.1.282312.3.579.2.975177-78-7752Lmnqvlz19024282 2..1.129548.3.579.2.339578-33-1513Pvtbzrd70381697 2..1.915624.3.579.2.685485-66-9815Lqewzpe8334415 2..1.573148.3.579.2.784832-05-3011Wdnfild2010970 2..1.528630.3.579.2.632770-79-9642Yrbrtsm7844943 2..1.554497.3.579.2.069186-16-6727Cgquusz3959078 2..1.341257.3.579.2.619733-14-1800Eeentjl4253659 2..1.179688.3.579.2.341595-65-0640Sevjosl05078462 2..1.890234.3.579.2.96707-56-2655Hgpjbvf52999595 2..1.852305.3.579.2.87900-91-6215Nmneuca85444991 2..1.489737.3.579.2.98419-04-6422Kwvjuyd54591394 2..1.470268.3.579.2.28607-26-4230Wwkbomg84156632 2.0.1.311134.3.579.2.10850-67-0676Bmktywn54626644 2.16.840.1.187680.3.579.2.11256-82-1787Xwjcclz38633447 2.16.840.1.048244.3.579.2.77945-81-9368Tkdurgl32744542 2.16.840.1.909915.3.579.2.35093-08-6180Oczbaew13872265 2.16.840.1.451384.3.579.2.45978-80-6225Pzkqegx66387655 2.16.840.1.739863.3.579.2.69258-34-8792GxcijjsSMG598093657624 1.2.840.983776.1.13.239.2.7.3.086484.729Kbdfmkc524Raxrwsv82476938 2.16.840.1.782045.3.579.2.531 Social History DateTypeDetailFacilityStart: 05-01-2015 End: 96-49-9539Vacwebm smoking status NHISNever smokerOhMetroHealth [facility] Work Phone: Start: 26-93-4268Gqs Assigned At BirthNot on file [facility] Work Phone: Start: 05-27-2019 End: 97-54-6410Lszgwib intakeNoFirelands Regional [facility]: 12-13-2019 End: 10-54-7823Dvkebor intakeCurrent non-drinker of alcohol (finding)[facility]: 12-09-2019 End: 59-38-9257Jrouzim SDOH Toqledwpl7QriuwFirelands Regional Medical Center [facility] Campus: 12-09-2019 End: 12-22-0565Auclsxo SDOH Food Sjlma9AsjqmFirelands Regional Medical Center South Campus: 12-09-2019 History SDOH Transport Hbv5QezmxFirelands Regional Medical Center [facility]: 05-11-2020 End: 31-58-5097Whasnpq use and exposureNever [facility] [place]: 10-30-2021 End: 01-26-3576Wbseyvpq to SARS-CoV-2 (event)Not sureFirelands Regional Medical Center South Campus: 40-78-0485Faq Assigned At [facility] Hospitaltart: 83-62-2862Qzcsbkh SDOH Eynmjnoav4RKM BULMAROSmith & Associates Work Phone: start: 01-06-2023 End: 05-23-3853Zkwhudy of Social functionOhioHealthHow hard is it for you to pay for the very basics like food, housing, medical care, and heatingNot very hard Leapfrog OnlineStart: 79-24-6301Lbnwqdo Health Questionnaire 9 item (PHQ-9) total score [Reported]0BON Soysuper(I/We) worried whether (my/our) food would run out before (I/we) got money to buy more.Never trueBON SoysuperAt any time in the past 12 months, were you homeless or living in [place] [including now]?NoBON OpenLabel HEALTHStart: 10-09-2020 Gender identityIdentifies as female gender (finding)[employer] Start: 76-39-2936Vjlktd orientationHeterosexual (finding)BON OpenLabel HEALTHHow hard is it for you to pay for the very basics like food, housing, medical care, and heatingSomewhat hardBON OpenLabel HEALTHStart: 06-10-2024 End: 34-48-5558Omdusplki beverage intakeLifetime non-drinker (finding)[facility] HealthcareStart: 46-01-4968Fagonim CommentCaffeine Intake: Yes, popNOVA HealthcareStart: 08-42-9740QgkOczcau (finding)[employer] HealthHow often to you have a drink containing alcohol?NeverBon [employer] HealthStart: 04-20-2025 End: 08-98-3753Xuoviliec beverage intakeEx-drinker (finding)[facility] Start: 60-30-0241Jikaclh Comment1-2 times a yearNOVA HealthcareNEGATED: Highlighted rowStart: NINFHistory of tobacco usePassive smokerBON [facility] Functional Status DateAssessmentResultFaBon [facility]ours [facility] Clinical Notes 12-23-2021 to 07-31-2025 Note Date & YuprLdccPqojwjui88-91-8007 Telephone encounter Note* Telephone Encounter - Janel Allen NP - 07/31/2025 8:33 AM EDT OARRS reviewed. Sent. [facility] HospitalZbquyxohzh64-04-8546 Miscellaneous Notes* Telephone Encounter - Janel Allen NP - 07/31/2025 8:33 AM EDT OARRS reviewed. Sent. documented in this encounterSainte Genevieve County Memorial HospitalDrgdmzxzlg55-73-5406 History of Present illness Narrative* Jennie Van [...] reflexes: Goyo's absent. Ankle clonus absent. Coordination Eeslgc-dn-cbwj, rapid alternating movements and fxaw-to-rmkw normal bilaterally without dysmetria. Gait Casual gait: [...] Continue current management plan documented in this encounterSainte Genevieve County Memorial HospitalQayuqfdbgg53-30-6641 Telephone encounter Note* Telephone Encounter - Paresh Cary - 05/23/2025 9:36 AM EDT Patient same day canceled due to her foot being in a boot and cannot drive by herself. [facility] HospitalCheynadwnf15-61-1544 Miscellaneous Notes* Telephone Encounter - Paresh Luis Daniel - 05/23/2025 9:36 AM EDT Patient same day canceled due to her foot being in a boot and cannot drive by herself. documented in this encounterSainte Genevieve County Memorial HospitalAxpqiphzom74-45-6591 History of Present illness Narrative* Robbin Sánchez, [...] next visit with xra documented in this encounterSainte Genevieve County Memorial HospitalBogzcfxupk97-22-2217 Evaluation note* Diagnosis Chronic renal impairment, stage [...] stage 3a (HCC) documented in this encounter [facility]07-10[facility] Evaluation note* Diagnosis Chronic renal impairment, stage 3a (HCC)- Primary Depression with anxiety Dysthymic disorder Gastroesophageal reflux disease without esophagitis Esophageal reflux Vitamin D deficiency Unspecified vitamin D deficiency Mixed hyperlipidemia BUCK on CPAP Obstructive sleep apnea (adult) (pediatric) Restless legs Restless legs syndrome (RLS) Hyperglycemia Other abnormal glucose Pain in right foot Pain in limb documented in this encounter [facility]07-03-2025 History of Present illness Narrative* Robbin Sánchez, INDER - 04/06/2025 4:30 PM EDT Celina Gaspar is a 44 y.o. female presents with chief complaint of Foot Ulcer (RT toe 2 ulcer) HPI: HPI Pt has ulcer on RT toe 2 for about 2 wks. She went to [facility] ER on 04-04-25, xrays, culture [...] toe or midfoot but also Charcot MRI [facility] 04-11-25 11:30 AM, arrive at 11:00 AM. Pt notified. documented in this encounterSainte Genevieve County Memorial HospitalVfyckzwhga34-60-3511 Evaluation note* Diagnosis Chronic renal impairment, stage [...] laterality- Primary documented in this encounter [facility] History of Present illness Narrative* [...] current (Dreamwear) mask. See below. Get [facility] ([facility]). Weight loss. 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 Lab Frequency Next Occurrence Therapeutic injection carpal [...] Neurology ? [address] ? [place], [place] [address] ? ? fax Neurology ? Clinical Neurophysiology ? Epilepsy ? Sleep Disorders ? Clinical Informatics documented in this encounterSainte Genevieve County Memorial HospitalDjihrysfxt05-06-6267 Evaluation note* Diagnosis Chronic renal impairment, stage [...] Other screening mammogram documented in this encounter [facility]05-12[facility] History of Present illness Narrative* Trace [...] Depression: Not at risk (11/15/2024) Received from [facility] PHQ-2 PHQ-9 Total Score: [...] reflexes: Goyo's absent. Ankle clonus absent. Coordination Hagcpc-sj-klqf, rapid alternating movements and drrr-ka-gwva normal bilaterally without dysmetria. Gait Normal casual, toe, heel and tandem gait. Romberg is absent. 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 She continues to have significant discomfort in her feet to interrupt her sleep. This is likely worsened by Kpaipfo-Uslfs-Zjiwt for which she had surgery in February [...] take this to [facility] in [place]. We will get the original sleep study from [facility] for review. She is following with Dr. Block for sleep medicine. 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 [address] ? [place] [address] ? ? fax Neurology ? Clinical Neurophysiology ? Epilepsy ? Sleep Disorders ? Clinical Informatics documented in this encounterSainte Genevieve County Memorial HospitalYcxvtucubp43-06-9006 Telephone encounter Note* Telephone Encounter - Janel Allen NP - 11/02/2024 9:16 PM EST Pharmacy sends medication clarification for nortriptyline as there are two directions on one received. Per ONUR Gunderson plan increase nortriptyline 50 mg 2 daily/bedtime total of 100 mg. [facility] HospitalQhrohtzuym09-60-5484 Miscellaneous Notes* Telephone Encounter - Janel Allen NP - 11/02/2024 9:16 PM EST Pharmacy sends medication clarification for nortriptyline as there are two directions on one received. Per ONUR Gunderson plan increase nortriptyline 50 mg 2 daily/bedtime total of 100 mg. documented in this encounterSainte Genevieve County Memorial HospitalJbwtyotnrw86-47-[address] [place] [address] (11) [facility] [address] [place] [address] MEDICAL OFFICE [facility] [address] Dept: [phone] Loc: [phone] MD Celina Browne 44 y.o. female Patient [...] Resource Strain: Medium Risk (05/08/2024) Received from [facility] Overall Financial Resource Strain (CARDIA) Difficulty of Paying Living Expenses: Somewhat hard Food Insecurity: No Food Insecurity (05/08/2024) Received from [facility] Hunger Vital Sign Worried About Running Out of Food in the Last Year: Never true Ran Out of Food in the Last Year: Never true Transportation Needs: Unknown (05/08/2024) Received from [facility] PRAPARE - Transportation Lack of Transportation (Non-Medical): No Housing Stability: Unknown (05/08/2024) Received from [facility] Housing Stability Vital Sign Unstable Housing [...] of submandibular glands, clear salivary flow from Peninsula's ducts, no stones of Peninsula's ducts Temporomandibular Joint: no crepitus with motion, no tenderness on palpation, no mayo (more content not included)...[facility] Ncxhjcosds72-69-0493 History of Present illness Narrative* Dimas Adair MD - 10/11/2024 10:05 AM EST [facility] [address] [facility] (11) [facility] [address] MEDICAL OFFICE [facility]ING [facility] [address] Dept: [phone] Loc: [phone] MD Celina Browne 44 y.o. female Patient [...] Resource Strain: Medium Risk (05/08/2024) Received from [facility] Overall Financial Resource Strain (CARDIA) Difficulty of Paying Living Expenses: Somewhat hard Food Insecurity: No Food Insecurity (05/08/2024) Received from [facility] Hunger Vital Sign Worried About Running Out of Food in the Last Year: Never true Ran Out of Food in the Last Year: Never true Transportation Needs: Unknown (05/08/2024) Received from [facility] PRAPARE - Transportation Lack of Transportation (Non-Medical): No Housing Stability: Unknown (05/08/2024) Received from [facility] Housing Stability Vital Sign Unstable Housing [...] subma ndibular glands, clear salivary flow from Peninsula's ducts, no stones of Felipe's ducts Temporomandibular [...] Hematological: Negative. Psychiatric/Behavioral: Negative. documented in this muqbcaljbKuykSyecyx59-62-2514 Telephone encounter Note* Telephone Encounter - Gwen Meng - 09/14/2024 2:18 PM EST Voicemail Received: Our numbers [phone] actually have a question regarding a prescription that was prescribed today, If someone could please call me back. Thank you. Byjuanpablo. [facility] HospitalDswapesvzx22-00-0790 Miscellaneous Notes* Telephone Encounter - Gwen Meng - 09/14/2024 2:18 PM EST Voicemail Received: Our numbers [phone] actually have a question regarding a prescription that was prescribed today, If someone could please call me back. Thank you. Rosa Isela. documented in this encounterSainte Genevieve County Memorial HospitalFbvljeavza21-00-0780 Miscellaneous Notes* Telephone Encounter - My Johnson - 08/11/2024 12:03 PM EST Patient called and requested refill of Lyrica to be sent to [facility] in [place]. documented in this encounterSainte Genevieve County Memorial HospitalTzszjkrgfi72-58-6205 Telephone encounter Note* Telephone Encounter - My Johnson - 08/11/2024 12:03 PM EST Patient called and requested refill of Lyrica to be sent to [facility] in [place]. [facility] HospitalMdvyltbaen24-38-4957 History of Present illness Narrative* Tequila Obando [...] Grandfather Depression: At risk (01/28/2024) Received from [facility] PHQ-2 PHQ-9 Total Score: 6 REVIEW [...] reflexes: Goyo's absent. Ankle clonus absent. Coordination Hbeobn-tj-ealx, rapid alternating movements and nuyy-bw-qdik normal bilaterally without dysmetria. Gait Normal casual, [...] Follow up 3 months. documented in this encounterSainte Genevieve County Memorial HospitalFimqpoijxy60-04-6771 History of Present illness Narrative* Cheryl Miles, [...] was counseled on the risks of stroke, ID, and sudden with BUCK, along with the [...] to clinic: 3-6 months documented in this encounterSainte Genevieve County Memorial HospitalFuqijwbfks15-69-8448 History of Present illness Narrative* MASSIMO Shook [...] 2022. Shefollows with an outside provider in [place] and was immobilized for an extended period [...] Foot & Ankle Surgery documented in this xkerxgsipLawcEhmrqo12-86-4955 NotePROCEDURE: XR ANKLE LT MIN 3 V, [...] Electronically authenticated by: PIPER MERCEDES Date: 2023-01-29 07:05[facility]04-27-2023 NotePROCEDURE: XR ANKLE LT MIN 3 V, [...] Electronically authenticated by: PIPER MERCEDES Date: 2023-01-29 07:05[facility]10-05-2022 History of Present illness Narrative* Samantha Lino [...] BMR: 1573 calories Est. total calorie needs: ~6681-2330 Lab Results Component Value Date/Time TRIG 460 [...] bread Supper: pork chop or chicken, homemade panamanian fries, mashed, or baked potato with broccoli [...] session duration: 55 minutes. documented in this encounterStoneSprings Hospital Center Phone: 1(863) 107-509705-04-2022 History of Present illness Narrative* Christel Donohue, PT - 02/05/2022 9:45 AM EDT [facility] Rehab and Wellness Date: 02/05/2022 Patient Name: Celina Gaspar : 1980 Pt No Showed Appt- Follow up call, left message on voicemail that patient discharged, but to call if has questions or concerns. Christel Donohue, PT Date: 02/05/2022 documented in this [facility]St[facility] Phone: 1(984) 308-339305-04-2022 Hospital course Narrative* Christel Donohue, PT - 02/05/2022 9:45 AM EDT Images from the original note were not included. [facility] Outpatient Physical Therapy Discharge Summary Patient: Celina Gaspar : 1980 Referring Practitioner: Liliane Sawyer APRN, INCLUSION TEACHER Referral Date : 12/19/21 Diagnosis: Lumbar radiculopathy [...] Donohue, PT Date: 02/05/2022 documented in this [facility] Phone: 1(299) 616-957805-02-2022 History of Present illness Narrative* Jerica Melgar - 02/03/2022 10:30 AM EDT [facility] Rehab and Wellness Date: 02/03/2022 Patient Name: Celina Gaspar : 1980 Pt Cancelled Appt due to no reason for cancel. Jerica Melgar Date: 02/03/2022 documented in this [facility] Phone: 1(835) 909-721304-27-2022 History of Present illness Narrative* Bevrely Rangel, JENNIFER - 01/29/2022 9:00 AM EDT Images from the original note were not included. [facility] Outpatient Physical Therapy Daily Note Date: [...] trunk ROM B rotation WFL-Not Met Rig Superintendent Goals - Time Frame for terminal block assembler goals : 10 Rig Superintendent Goals Time Frame for terminal block assembler goals : 10 terminal block assembler goal 1: Decrease pain low back 2/10 at worst x3 days for completing normal activities [facility] goal 2: Patient to report 50% decrease in radicular symptoms L LE Post Treatment Pain: 5/10 Time In: 0859 Time Out: 0947 Timed Code Treatment Minutes: 48 Minutes Total Treatment Time: 48 Minutes Beverly Rangel PTA Date: 01/29/2022 documented in this [facility] Work Phone: 1(232) 802-735004-25-2022 History of Present illness Narrative* Christel Donohue, PT - 01/27/2022 3:45 PM EDT Images from the original note were not included. [facility] Outpatient Physical Therapy Daily Note Date: [...] Increase trunk ROM B rotation WFL-Not Met Snf Goals - Time Frame for [facility] goals : 10 Rig Superintendent Goals Time Frame for [facility] goals : 10 terminal block assembler goal 1: Decrease pain low back 2/10 [...] this [facility] Work Phone: 1(957) 539-773204-22-2022 History of Present illness Narrative* Vanessa Castro Radha, PT - 01/24/2022 9:45 AM EDT Images from the original note were not included. [facility] Outpatient Physical Therapy Daily Note Date: [...] Increase trunk ROM B rotation WFL Rig Superintendent Goals - Time Frame for [facility] goals : 10 Rig Superintendent Goals Time Frame for terminal block assembler goals : 10 terminal block assembler goal 1: Decrease pain low back 2/10 at worst x3 days for completing normal activities [facility] goal 2: Patient to report 50% decrease in radicular symptoms L LE Post Treatment Pain: 5/10 Time In: 0952 Time Out: 1030 Timed Code Treatment Minutes: 38 Minutes Total Treatment Time: 38 Minutes Vanessa Garcia, PT Date: 01/24/2022 documented in this [facility] Phone: [phone]) 868-920504-20-2022 History of Present illness Narrative* Beverly Gutiérrez Rangel, CHIEF MECHANICAL OFFICER - 01/22/2022 4:45 PM EDT [facility] Rehab and Wellness Date: 01/22/2022 Patient Name: Celina Gaspar : 1980 Patient did not show up for her appointment. Message left on answering machine with a reminder of her next appointment on Thursday. Beverly Brock Claire, CHIEF MECHANICAL OFFICER Date: 01/22/2022 documented in this [facility] Phone: [phone]) 571-476604-15-2022 History of Present illness Narrative* Beverly Gutiérrez Rangel, CHIEF MECHANICAL OFFICER - 01/17/2022 10:30 AM EDT Images from the original note were not included. [facility] Outpatient Physical Therapy Daily Note Date: 01/17/2022 Patient Name: Celina Gaspar : 1980 (41 y.o.) Referring Practitioner: Liliane Sawyer APRN, INCLUSION TEACHER Referral Date : 12/19/21 Diagnosis: Lumbar radiculopathy [...] 4: Increase trunk ROM B rotation WFL Snf Goals - Time Frame for terminal block assembler goals : 10 terminal block assembler goal 1: Decrease pain low back 2/10 at worst x3 days for completing normal activities terminal block assembler goal 2: Patient to report 50% decrease in radicular symptoms L LE Post Treatment Pain: 5/10 Time In: 1037 Time Out: 1107 Timed Code Treatment Minutes: 30 Minutes Total Treatment Time: 30 Minutes Beverly Rangel PTA Date: 01/17/2022 [facility] Phone: [phone] 446-393404-11-2022 History of Present illness Narrative* ISAIAH Metzger - 01/13/2022 3:15 PM EDT [facility] Rehab and Wellness Date: 01/13/2022 Patient Name: Celina Gaspar : 1980 Pt Cancelled Appt due to no reason given. NABILA Metzger Date: 01/13/2022 documented in this [facility] Phone: 1([phone]) 585-418004-01-2022 History of Present illness Narrative* Beverly Rangel PTA - 01/03/2022 9:45 AM EDT Images from the original note were not included. 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 [facility] Outpatient Occupational Therapy Daily Note Date: [...] Frame for Short term goals: STG=LTG Rig Superintendent Goals Time Frame for [facility] goals : 12 visits (01/24/2022) terminal block assembler goal 1: pt to be indepenent in HEP-MET terminal block assembler goal 2: Pt to demonstrate R wrist flexion to 65 degrees or more in order to engage in daily tasks-MET terminal block assembler goal 3: Pt to demonstrate R wrist [...] this [facility] Phone: [phone]) [phone] Hospital course Narrative* Cheryl Castro NORMAN Herman - 12/31/2021 9:30 AM EDT Images from the original note were not included. 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 Therapist provided pt with handout on Carpal Tunnel Dos & Dont's to avoid re-injury. Prognosis: Fair Goals Short Term Goals Time Frame for Short term goals: STG=LTG Snf Goals Time Frame for terminal block assembler goals : 12 visits (01/24/2022) [facility] goal 1: pt to be indepenent in HEP-MET terminal block assembler goal 2: Pt to demonstrate R wrist [...] this [facility] Phone: [phone]) 293-766703-29-2022 History of Present illness Narrative* Christel Donohue, PT - 12/31/2021 8:30 AM EDT Images from the original note were not included. [facility] Outpatient Physical Therapy Evaluation Date: 12/31/2021 [...] 4: Increase trunk ROM B rotation WFL [facility] goals Time Frame for [facility] goals : 10 terminal block assembler goal 1: Decrease pain low back 2/10 at worst x3 days for completing normal activities [facility] goal 2: Patient to report 50% decrease in radicular symptoms L LE Patient's Goal: Decrease back pain to complete normal activities Timed Code Treatment Minutes: 15 Minutes Total Treatment Time: 45 Time In: 8:30 Time Out: 9:15 Christel Donohue, PT Date: 12/31/2021 documented in this [facility] [employer] Work Phone: [phone] History of Present illness Narrative* Cheryl Herman OT - 12/30/2021 8:30 AM EDT Images from the original note were not included. [facility] Outpatient Occupational Therapy Daily Note Date: [...] Time Frame for Short term goals: STG=LTG Snf Goals Time Frame for [facility] goals : 12 visits (01/24/2022) [facility] goal 1: pt to be indepenent in HEP-MET terminal block assembler goal 2: Pt to demonstrate R wrist flexion to 65 degrees or more in order to engage in daily tasks-MET [facility] goal 3: Pt to demonstrate R wrist extension to 60 degrees or more in order to engage in daily tasks-MET terminal block assembler goal 4: Pt to be educated on carpal tunnel do's & dont's in order to prevent further repetitive injury to wrist-MET Time In: 835 Time Out: 915 Timed Coded Minutes: 40 Total Treatment Time: 40 THERESA Houser, OTR/L Date: 12/30/2021 documented in this [facility] Phone: [phone]) [phone] History of Present illness Narrative* Cheryl Castro Batsheva, OT - 12/23/2021 8:30 AM EDT Images from the original note were not included. [facility] Outpatient Occupational Therapy Evaluation Date: 12/23/2021 [...] completing these mvmts Left Hand Strength - First Line Supervisor (lbs) Handle Setting 2: 54#, 50#, 53# (52.3# ave) Left Hand Strength - Pinch (lbs) Lateral: 13.5# Tip: 8# Palmar 3 point: 11# Right Hand Strength - First Line Supervisor (lbs) Handle Setting 2: 53#, 54#, 53# [...] goals: STG=LTG [facility] goals Time Frame for [facility] goals : 12 visits (01/24/2022) terminal block assembler goal 1: pt to be indepenent in HEP terminal block assembler goal 2: Pt to demonstrate R wrist flexion to 65 degrees or more in order to engage in daily tasks terminal block assembler goal 3: Pt to demonstrate R wrist extension to 60 degrees or more in order to engage in daily tasks [facility] goal 4: Pt to be educated on carpal tunnel do's & dont's in order to prevent further repetitive injury to wrist Patient's Goal: pt wishes to return to prior function Time In: 830 Time Out: 924 Timed Coded Minutes: 0 Total Treatment Time: 54 THERESA Houser, OTR/Matthew 12/23/2021 [facility] [employer] Phone: evaloeepmj note* Diagnosis Viral illness Unspecified viral infection, in conditions classified elsewhere and of unspecified site [facility]: evalidhbai note* Diagnosis Suspected COVID-19 virus infection [facility] Phone: evalshmtgv note* Diagnosis Acute cystitis with hematuria Acute cystitis [facility]: [facility] note* Diagnosis Difficult or painful urination Dysuria [facility] Phone: evalpcjyao note* Diagnosis Acute cystitis with hematuria Acute cystitis Recurrent UTI Urinary tract infection, site not specified [facility] Phone: evalqopexs note* Diagnosis Frequent UTI Urinary tract infection, site not specified Urinary urgency Urgency of urination Urinary frequency [facility] Phone: evalyzsxyt note* Diagnosis Frequent UTI Urinary tract infection, site not specified Urinary urgency Urgency of urination Urinary frequency [facility] Phone: evalooskdj note* Diagnosis MRSA (methicillin resistant Staphylococcus aureus) septicemia (HCC) Methicillin resistant staphylococcus aureus septicemia [facility] noteNo assessment information availableSamaritan [facility] Work Phone: Evaluation note* Diagnosis Fatigue, unspecified type Encounter for screening for HIV Mixed hyperlipidemia Hyperglycemia Other abnormal glucose Chronic renal impairment, stage 3b (HCC) documented [facility] Phone: evalsxrbea note* Diagnosis Acute cystitis with hematuria Acute cystitis documented in this encounter [employer] Phone: evaluation note* Diagnosis Neck mass Swelling, mass, or lump in head and neck documented in this encounter [employer] Phone: evaluation note* Diagnosis Pain of foot, unspecified laterality Closed nondisplaced fracture of second metatarsal bone of left foot, initial encounter Closed nondisplaced fracture of lateral cuneiform of left foot, initial encounter documented in this encounter [employer] Phone: evaluation note* Diagnosis Foreign body (FB) in soft tissue Residual foreign body in soft tissue documented in this encounter [employer] Phone: evaluation note* Diagnosis Pelvic pressure in female Other specified symptom associated with female genital organs documented in this encounter [employer] Phone: evalrpcqux note* Diagnosis Charcot arthropathy of midfoot- Primary Gastrocnemius equinus, unspecified laterality Foot pain, left Pain in soft tissues of limb [facility]* Diagnosis Mixed hyperlipidemia documented in this encounter [employer] [facility]* Diagnosis Idiopathic progressive polyneuropathy Non-seasonal allergic rhinitis due to pollen documented [facility] this encounter [facility]* Diagnosis Thyroid nodule Nontoxic uninodular goiter documented in this encounter [facility]* Diagnosis Thyroid nodule- Primary Nontoxic uninodular goiter [facility]* Diagnosis BUCK on CPAP- Primary 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 (CMS/HCC) Restless legs Restless legs syndrome (RLS) Bilateral carpal tunnel syndrome Carpal tunnel syndrome documented [facility]* Diagnosis Idiopathic progressive [...] Lipoma of neck [facility]* Diagnosis Idiopathic progressive polyneuropathy Intractable chronic [...] glucose Mixed hyperlipidemia [facility] Diagnosis BUCK (obstructive sleep apnea)- [...] Hypersomnia Hypersomnia, unspecified documented [facility] this [facility] [...] Other abnormal glucose documented in this encounter [facility] Discharge instructions* Attachments The following attachments cannot be sent through Care Everywhere. * Diabetic Foot Ulcer (Belizean) [facility] N[facility]* Other (Routine) - ClosedSpecialtyDiagnoses / ProceduresReferred By Contact Referred To ContactRadiology Diagnoses Encounter for screening mammogram for malignant neoplasm of breast Procedures [facility] BRIAN DIGITAL SCREEN BILATERAL Back, [place] [address] Phone: tel: fax: Referral IDStatusReasonStart DateExpiration DateVisits RequestedVisits [id number]/27/20254/ [facility] Narrative* Imaging (Emergency) - Pending ReviewSpecialtyDiagnoses / ProceduresReferred By ContactReferred To ContactRadiology Diagnoses Pain in right foot Procedures MRI FOOT RIGHT W WO CONTRAST Robbin Sánchez, DPMónica [address] [facility], [place] [address] Phone: tel: fax: Referral IDStatusReasonStart DateExpiration DateVisits RequestedVisits [id number] Review [facility] Summary Purpose Family History No Family [...] PMFull Code03/05/2017 10:05 AM03/05/2017 12:56 PMDate ActivatedDate UbsujevoehpFqsroimq65/11/2018 4:17 PM08/25/2018 8:55 PMDate ActivatedDate InactivatedComments03/19/2017 1:37 PM03/19/2017 4:32 PMDate ActivatedDate InactivatedComments03/19/2017 10:57 AM03/19/2017 1:37 PMDate ActivatedDate InactivatedComments03/05/2017 12:56 PM03/05/2017 3:55 PMDate Activated Date InactivatedComments03/05/2017 10:05 AM03/05/2017 12:56 PMDate ActivatedDate FdyuhiwzapzUqamklfw84/11/2018 4:17 PM08/25/2018 8:55 PMDate ActivatedDate InactivatedComments03/19/2017 1:37 [...] Everywhere. * Back Care Basics: General Info (Belizean) * Back: Preventing Injuries (Belizean) documented in this encounter Reason for Referral StatusReasonSpecialtyDiagnoses / ProceduresReferred By ContactReferred To ContactClosedRadiology Diagnoses Brachial neuritis Peripheral nerve disorder Spasm of muscle Procedures MR Cervical Spine Without Contrast Trace Casas MD [address] [place] [address] SpecialtyDiagnoses / ProceduresReferred By ContactReferred To ContactRadiology Diagnoses Neck mass Procedures US HEAD NECK SOFT TISSUE THYROID Felipe Adam MD [address] [place] [address] Referral IDStatusReasonStart DateExpiration DateVisits RequestedVisits [id number]/23/20228/[id number] / Procedures Referred By ContactReferred To ContactRadiology Diagnoses Thyroid nodule Procedures US THYROID Back, MD [address] [place] [address] Referral IDStatusDino DateExpiration DateVisits RequestedVisits [id number] [id number] Chief Complaint and Reason for Visit Chief Complaint M54.16 M79.10 M79.60 9 R20.9 Chief Complaint Unknown Additional Source Comments INFORMATION SOURCE (unrecogn ized section and content) DATE CREATED AUTHOR 03/30/2018 [facility] DATE CREATED AUTHOR AUTHOR'S ORGANIZ ATION 03/30/2018 [facility] DATE CREATED AUTHOR AUTHOR'S ORGANIZ ATION 09/15/2018 [facility] DATE CREATED AUTHOR AUTHOR'S ORGANIZ ATION 09/23/2018 [facility] DATE CREATED AUTHOR AUTHOR'S ORGANIZ ATION 09/26/2018 [facility] DATE CREATED AUTHOR AUTHOR'S ORGANIZ ATION 12/10/2018 [facility] DATE CREATED AUTHOR AUTHOR'S ORGANIZ ATION 12/18/2018 [facility] DATE CREATED AUTHOR AUTHOR'S ORGANIZ ATION 02/11/2019 [facility] DATE CREATED AUTHOR AUTHOR'S ORGANIZ ATION 11/30/2021 [facility] DATE CREATED AUTHOR AUTHOR'S ORGANIZ ATION 05/01/2022 [facility] DATE CREATED AUTHOR AUTHOR'S ORGANIZ ATION 01/12/2023 [facility] DATE CREATED AUTHOR AUTHOR'S ORGANIZ ATION 02/15/2023 [facility] DATE CREATED AUTHOR AUTHOR'S ORGANIZ ATION 04/04/2023 [facility] DATE CREATED AUTHOR AUTHOR'S ORGANIZ ATION 02/20/2024 [facility] DATE CREATED AUTHOR AUTHOR'S ORGANIZ ATION 10/17/2024 [facility] DATE CREATED AUTHOR AUTHOR'S ORGANIZ ATION 02/14/2025 [facility] DATE CREATED AUTHOR AUTHOR'S ORGANIZ ATION 2025 [facility] DATE CREATED AUTHOR AUTHOR'S ORGANIZ ATION 08/04/2025 [facility] Reason for Visit (unrecogniz ed section and content) ReasonCommentsSleep ApneaSpecialtyDiagnoses / ProceduresReferred By Contact Referred To ContactNeurology Diagnoses BUCK on CPAP Procedures [place] OFFICE/OUTPATIENT NEW HIGH MDM 60 MINUTES Fozia Meng, BUSINESS MANAGEMENT SPECIALIST [address], [facility] [address] [place] [address] Phone: tel: fax: Lynn Block MD [address] [facility] [address] [place] [address] Phone: tel: fax: Referral IDStatusReasonStart DateExpiration DateVisits RequestedVisits [id number] Specialty Services Required /[id number]dooxgo / ProceduresReferred By ContactReferred To ContactClosedRadiology Diagnoses Brachial neuritis Peripheral nerve disorder Spasm of muscle Procedures MR Cervical Spine Without Contrast Trace Casas MD [address] [place] [address] SpecialtyDiagnoses / ProceduresReferred By ContactReferred To Contact Occupational Therapy Diagnoses Carpal tunnel syndrome Carpal Tunnel Syndrome Procedures Eval and treat Keenan Lozano MD [address] [place] [address] [facility] [address] [place] [address] Referral IDStatusReasonStben DateExpiration DateVisits RequestedVisits [id number]/17/20223/[id number] / Procedures Referred By ContactReferred To ContactPhysical Therapy Diagnoses Radiculopathy, lumbar region Lumbar Radiculopathy Procedures Eval and treat Janel Allen, MENTAL HEALTH COUNSELOR - INCLUSION TEACHER [address] [place] [address] [facility] [address] [place] [phone] Referral IDStatusReasonStart DateExpiration DateVisits RequestedVisits [id number] / Procedures Referred By ContactReferred To ContactRadiology Diagnoses Neck mass Procedures US HEAD NECK SOFT TISSUE THYROID Felipe Adam MD [address] [place] [address] Referral IDStatusReasonStart DateExpiration DateVisits RequestedVisits [id number]/23/20228/[id number] / Procedures Referred By ContactReferred To ContactRadiology Diagnoses Pain of foot, unspecified laterality Closed nondisplaced fracture of lateral cuneiform of left foot, initial encounter Procedures MRI FOOT LEFT W WO CONTRAST MRI FOOT LEFT W WO CONTRAST Robbin Sánchez, DPM [address] [facility], [place] [address] Referral IDStatusMerlynuniversity hospitalStart DateExpiration DateVisits RequestedVisits [id number]/16/20229/[id number] Class SpecialtyDiagnoses / ProceduresReferred By ContactReferred To ContactDiabetes Services Diagnoses Pre-diabetes Felipe Adam MD [address] [place] [phone] [facility] [address] [place] [phone] Referral IDStatusReasonStart DateExpiration DateVisits RequestedVisits [id number] Specialty Services Required /[id number] / ProceduresReferred By ContactReferred To ContactDiabetes Services Diagnoses Pre-diabetes Felpie Adam MD [address] [place] [phone] [facility] Diabetic Education [address] [place] [address] ReasonCommentsOtherLeft foot charcot on-going since 06/2022. New x-rays today. 2nd of opinion.SpecialtyDiagnoses / ProceduresReferred By ContactReferred To ContactRadiology Diagnoses Thyroid nodule Procedures US THYROID Felipe Adam MD [address] [place] [phone] Referral IDStatusReasonStart DateExpiration DateVisits RequestedVisits [id number] [id number] DateCommentsMed Khrbvf9610/05/2024ReasonCommentsNew PatientFNA - THYROID NODULESpecialtyDiagnoses / ProceduresReferred By ContactReferred To ContactOtolaryngology Diagnoses Thyroid nodule Felipe Adam MD [address] [place] [address] Phone: tel: fax: Dimas Adair MD [address] [place] [address] Phone: tel: fax: Referral IDStatusReasonStart DateExpiration DateVisits RequestedVisits [id number] [id number] UlcerNiranjan presents to ER with a skin [...] DateEnd Date Felipe Adam MD [address] [place] [phone] PCP - GeneralInternal Medicine11/14/11Team MemberRelationshipSpecialtyStart Date End Date Back, MD Felipe [address] [place] [phone] PCP - GeneralInternal Medicine11/14/11Team MemberRelationshipSpecialtyStart Date End Date Back, MD [address] [place] [address] PCP - GeneralInternal Medicine11/14/11Team MemberRelationshipSpecialtyStart Date End Date Back, MD Fel[address] [place] [address] PCP - GeneralInternal Medicine11/14/11Team MemberRelationshipSpecialtyStart Date End Date Back, MD Fel[address] [place] [address] PCP - GeneralInternal Medicine11/14/11Team MemberRelationshipSpecialtyStart Date End Date Back, MD Felipe [address] [place] [address] PCP - GeneralInternal Medicine11/14/11Team MemberRelationshipSpecialtyStart Date End Date Back, MD Felipe [address] [place] [phone] PCP - GeneralInternal Medicine11/14/11 Team Status: Inactive Member Role Status Dates NON STAFF Primary Care Provider Active Trace Casas MDAgenesis hospital ProviderActive Team Status: Active Member Role Status Dates NON STAFF Primary Care Provider Active Team MemberRelationshipSpecialtyStart DateEnd Date Back, MD [address]ipe [address] [place] [address] PCP - GeneralInternal Medicine11/14/11Team MemberRelationshipSpecialtyStart Date End Date Back, MD Felipe [address] [place] [phone] PCP - GeneralInternal Medicine11/14/11Team MemberRelationshipSpecialtyStart Date End Date Back, MD Felipe [address] [place] [phone] PCP - GeneralInternal Medicine11/14/11Team MemberRelationshipSpecialtyStart Date End Date Back, MD Felipe [address] [place] [phone] PCP - GeneralInternal Medicine11/14/11Team MemberRelationshipSpecialtyStart Date End Date Back, MD [address] [place] [address] PCP - GeneralInternal Medicine11/14/11Team MemberRelationshipSpecialtyStart Date End Date Back, MD Felipe [address] [place] [phone] PCP - GeneralInternal Medicine11/14/11Team MemberRelationshipSpecialtyStart Date End Date Back, MD Felipe [address] [place] [phone] PCP - GeneralInternal Medicine11/14/11Team MemberRelationshipSpecialtyStart Date End Date Back, MD Felipe [address] [place] [phone] PCP - GeneralInternal Medicine11/14/11Team MemberRelationshipSpecialtyStart Date End Date Back, MD Felipe [address] [place] [phone] PCP - GeneralInternal Medicine03/26/15Team MemberRelationshipSpecialtyStart Date End Date Back, MD Fel[address] [place] [phone] PCP - GeneralInternal Medicine11/14/11 Team Status: Inactive Member Role Status Dates Frances Harris DPM MS Attending Provider Active Start: February 15, 2024 End: February 15, 2024Team MemberRelationshipSpecialtyStart DateEnd Date Back, MD [facility] [facility] PCP - GeneralInternal Medicine11/14/11Team MemberRelationshipSpecialtyStart Date End Date Back, MD Felipe [address] [place] [phone] PCP - GeneralInternal Medicine11/14/11Te MemberRelationshipSpecialtyStart Date End Date Back, MD Felipe [address] [place] [phone] PCP - GeneralInternal Medicine03/26/15Team MemberRelationshipSpecialtyStart Date End Date Back, MD Felipe [address] [place] [phone] PCP - GeneralInternal Medicine03/26/15Team MemberRelationshipSpecialtyStart Date End Date Back, MD Felipe [address] [facility], [facility] PCP - GeneralInternal Medicine11/14/11Team MemberRelationshipSpecialtyStart Date End Date Back, MD Alcides [address] [place] [id number] PCP - GeneralFamily Medicine12/08/24Team MemberRelationshipSpecialtyStart DateEnd Date Back, MD Alcides [address] [facility], [facility]37 PCP - GeneralFamily Medicine12/08/24Team MemberRelationshipSpecialtyStart DateEnd Date Back, MD Felipe [address] [facility], [place] [address] PCP - GeneralInternal Medicine2Team MemberRelationshipSpecialtyStart Date End Date Back, MD Alcides [address] [facility], [place] [address] PCP - GeneralFamily Medicine12/08/24Team MemberRelationshipSpecialtyStart DateEnd Date Back, MD Felipe [address] [facility], [place] [address] PCP - GeneralInternal Medicine11/14/11Team MemberRelationshipSpecialtyStart Date End Date Back, MD Alcides [address] [facility], [place] [address] PCP - GeneralFamily Medicine12/08/24Team MemberRelationshipSpecialtyStart DateEnd Date Back, MD Alcides [address] [facility], [place] [address] PCP - GeneralFamily Medicine12/08/24Team MemberRelationshipSpecialtyStart DateEnd Date Back, MD Alcides [address] [place] [address] PCP - GeneralFamily Medicine12/08/24Team MemberRelationshipSpecialtyStart DateEnd Date Back, MD Alcides [address] [place] [address] PCP - GeneralFamily Medicine12/08/24Team MemberRelationshipSpecialtyStart DateEnd Date Back, MD Felipe [address] [facility], [place] [address] PCP - GeneralInternal Medicine11/14/11Team MemberRelationshipSpecialtyStart Date End Date Back, MD Felipe [address] [facility], [place] [address] PCP - GeneralInternal Medicine11/14/11Team MemberRelationshipSpecialtyStart Date End Date Back, MD Alcides [address] [facility], [place] [address] PCP - GeneralFamily Medicine12/08/24Team MemberRelationshipSpecialtyStart DateEnd Date Back, MD Felipe [address] . [facility], [place] [address] PCP - GeneralInternal Medicine11/14/11Team MemberRelationshipSpecialtyStart Date End Date Back, MD Alcides [address] [place] [address] PCP - GeneralFamily Medicine12/08/24Team MemberRelationshipSpecialtyStart DateEnd Date Back, MD Alcides [address] [place] [address] PCP - GeneralFamily Medicine12/08/24Team MemberRelationshipSpecialtyStart DateEnd Date Back, MD Felipe [address] [place] [address] PCP - GeneralInternal Medicine11/14/11Team MemberRelationshipSpecialtyStart Date End Date Alcides Adam MD [address] [place] [address] PCP - GeneralFamily Medicine12/08/24 Goals (unrecognized section [...] BE BASED ON THE PRIMARY CLINICAL RECORDS. [employer] [facility]. provides no warranty or guarantee of the accuracy or completeness of information in this document.
--- OUTSIDE RECORDS SUMMARY | 2025-08-23 14:20 | XMS_ITS | Clinical Summary ---
Author Organization [facility] Address [address], [address] [place] [address] Care Team Providers Care Seed Sorter Name Role Phone Felipe Adam MD Primary Care Provider [phone] Allergies Active AllergyReactionsCriticalityNoted SflaKhxiihweUrrlhrjugi40/25/2024 Made her feel overly thirsty and caused bad smell and taste. Medications MedicationSigDispense QuantityRefillsLast FilledStart DateEnd DateStatus Cholecalciferol (VITAMIN D) 2000 UNITS CAPS capsule Indications:Vitamin D deficiencyTake 1 capsule by mouth daily. 30 capsule 12111/12/2013ctive b complex vitamins capsule Take 1 capsule by mouth dailyActive sertraline (ZOLOFT) 100 MG tablet Take 2 tablets by mouth daily Currently decreasing this sitpktluhe12/26/2020 Active pregabalin (LYRICA) 300 MG capsule Take 1 capsule by mouth 2 times daily.02/20/2022ctive Biotin 1000 MCG TABS Take 1 tablet by mouth daily02/26/2022ctive NURTEC [address] 1 TABLET ON OR UNDER THE TONGUE EVERY OTHER DAY01/02/2022ctive baclofen (LIORESAL) 10 MG tablet Take 1 tablet by mouth vxilixm0104/19/2022ctive montelukast (SINGULAIR) 10 MG tablet Indications:Seasonal allergiesTAKE [...] MG capsule Take 3 capsules by mouth nnljarg24/6Active clindamycin (CLEOCIN) 300 MG capsule 5Active dapagliflozin (FARXIGA) 10 MG tablet Indications:Stage 3a chronic kidney disease (HCC),Pre-diabetesTake 1 tablet by mouth every morning 90 tablet 5Active ciprofloxacin (CIPRO) 500 MG tablet 5Active fluconazole (DIFLUCAN) 100 MG tablet Take 1 tablet by mouth daily5Active sulfamethoxazole-trimethoprim (BACTRIM;SEPTRA) 400-80 MG per tablet Take 2 tablets by mouth 2 times dailyActive Active Problems ProblemNoted DateDiagnosed DateChronic bufwurbtteoh19/30/2025 Assessment & Plan (08/03/2025 11:31 AM EDT): Controlled on Linzess PRN. Pre-qbevzldh73/26/2022 Assessment & Plan (08/03/2025 11:31 AM EDT): [...] Hemoglobin A1C; Future Basic Metabolic Panel; Future Fdhbys6505/29/2022Thyroid ufwzqy892Restless legs05/13/2021 Assessment & Plan (08/03/2025 11:31 AM EDT): Controlled on Requip. No change in medication. Assessment & Plan (11/15/2024 3:08 PM EST): Controlled on Requip. No changes at this time. BUCK on CPAP05/11/2020 Assessment & Plan (08/03/2025 11:31 AM EDT): Controlled on CPAP. Assessment & Plan (11/15/2024 3:08 PM EST): Undergoing the process of getting a new machine. Epidural igfnmyj5208/20/2018Septic yuvlkekli67/16/2018Neoplasm of uncertain behavior of skin02/05/2018Peripheral hgjytlazmo55/27/2018Basal cell carcinoma of skin09/29/2017 Overview (02/05/2018): Overview: Added automatically from request for surgery [id number] Basal cell carcinoma of skin of face09/16/2017Mixed pquedujtkhsesv20/15/2017 Assessment & Plan (11/15/2024 3:08 PM EST): [...] Future Carpal tunnel syndrome on right03/05/2017Vitamin D kpykvzhdwg18/08/2014 Assessment & Plan (08/03/2025 11:31 AM EDT): [...] 3 (moderate)06/09/2014Chronic glomerulonephritis with pathological lesion in bnbofq4006/09/2014Thoracic degenerative disc disease 05/09/2014Seasonal urcfnfqtr24/11/2014CRI (chronic renal insufficiency) 10/25/2013 Assessment & Plan (08/03/2025 11:31 AM EDT): Follows with Nephrology. Avoid NSAIDS and keep BP well controlled. Assessment & Plan (11/15/2024 3:08 PM EST): Renal function has been stable. Avoid NSAIDS. Follows with Nephrology yearly (Dr. Forbes). Orders: Comprehensive Metabolic Panel; Future Depression with mxsntod3406/24/2013 Assessment & Plan (08/03/2025 11:31 AM EDT): Controlled on Zoloft, Pamelor, and Xanax. Follows with Psychiatry every 3 months. Assessment & Plan (11/15/2024 3:08 PM EST): Has been stable on Zoloft. No change in medication. Waloeqsbjvnqm18/20/2013 Assessment & Plan (11/15/2024 3:08 PM EST): HgbA1C has been normal. Will repeat HgbA1C and Insulin level with next labs. Orders: Hemoglobin A1C; Future Insulin, Total; Future Chronic pssrnzd1707/20/20120939Ictzjdt82/16/2012Elevated C-reactive protein (CRP)MRSA (methicillin resistant Staphylococcus aureus) septicemiaDiscitis of thoracic regionInfection of thoracic spine Resolved Problems ProblemNoted DateDiagnosed DateResolved TnpiMcedck26Lactic yfmlggal03Mixed hypercholesterolemia and hypertriglyceridemia Depressioncute metabolic encephalopathy 05/11/2020MRSA ayygnimrdn92/07/2020 Encounters DateTypeDepartmentCare TanmOjhchlhlmie94/30/2025 11:00 AM EDTOffice Visit [address] [address] Felipe Adam MD Pre-diabetes (Primary Dx); Depression with anxiety; Vitamin D deficiency; Gastroesophageal reflux disease without esophagitis; Chronic renal impairment, stage 3b; BUCK on CPAP; Restless legs; Chronic constipation; Pure mlmzclpinaqzkyltueqz12/29/2025 11:54 AM EDT - 08/02/2025 11:59 PM EDT Hospital Encounter [facility] [address] [place] [address] Stage 3a chronic kidney disease (HCC); Pre-diabetes Discharge Disposition: Home or Self Care07/26/2025Orders Only [address] [address] Dimitris Stephens MD 07/21/2025 3:25 PM EDT - 07/21/2025 11:59 PM EDTHospital Encounter [facility] [address] [place] [address] Discharge Disposition: Home or Self Care06/29/2025Orders Only [address] [address] Dimitris Stephens MD 06/19/2025Refill [address] [address] Felipe Adam MD Medication Hyloue4506/19/2025Orders Only [address] [address] Myah Gao MA Stage 3a chronic kidney disease (HCC); Pre-vuzytfcc56/11/2025bstract [facility] [address] [place] [address] Felipe Adam MD 06/12/2025 9:56 AM EDT - 06/12/2025 11:59 PM EDTHospital Encounter [facility] [address] [place] [address] Discharge Disposition: Home or Self Carefrom Last 3 Months Immunizations ImmunizationAdministration DatesNext DueTDaP, ADACEL (age 10y-64y), BOOSTRIX (age 10y+), IM, 0.5mL09/08/2014 Family History Medical HistoryRelationNameCommentsCancerMotherGlenna MeadelungDiabetesMother Madyson MeadeHigh Blood PressureMotherGlenna MeadeRelationNameStatusComments MotherGlenna Maurisio Social History Tobacco UseTypesPacks/DayYears UsedDateSmoking Tobacco: NeverPassive Smoke Exposure: NeverSmokeless Tobacco: Never Tobacco Cessation:Counseling Given: Not Answered Alcohol UseStandard Drinks/WeekCommentsNo0 (1 standard drink = 0.6 oz pure alcohol)[facility] UtilitiesAnswerDate RecordedIn the past 12 months has the [employer], gas, oil, or water [employer] threatened to shut off services in your [...] food, housing, medical care, and heating?Somewhat hard 4PHQ-2AnswerDate RecordedPHQ-9 Total Gyjcc722Hunger Vital Sign AnswerDate RecordedWithin the past 12 [...] steady place to sleep or slept in shreveportelter (including now)?No05/08/2024Housing Stability Vital SignAnswerDate RecordedIn the last 12 months, was there a time when you were not able to pay the mortgage or rent on time?No11/15/2024In the past 12 months, how many times have you moved where you were living?t any time in the past 12 months, were you homeless or living in a prison (including now)?No11/15/2024Food InsecurityAnswerDate RecordedWithin the past 12 months, you worried that your food would run out before you got the money to buymore.Within the past 12 months, the food you bought just didn't last and you didn't have money to get more.1 11/15/2024CommentsNoSex and Gender InformationValueDate RecordedSex Assigned at ZykkyMfahgg77/13/2025 9:45 AM EDTLegal RquQmvwgy13/10/2013 10:13 AM ESTGender EfegplwoAxsbye20/05/2021 8:11 AM ESTSexual OrientationStraight 10/09/2020 8:11 AM ESTOccupationIndustryJob Start DateJob End DateNot on fileNot on fileNot on fileNot on file Last Filed Vital Signs Vital SignReadingTime TakenCommentsBlood Zsukqgwb354/7810 10:52 AM EDT Qqoow018408/03/2025 10:52 AM IOVUfiaqxwomai87.2 ??C (99 ??F)04/04/2025 9:15 PM EDT Respiratory Fndg4913 11:15 PM EDTOxygen Ffyrkerrwf36%04/18/2025 9:32 AM EDTInhaled Oxygen Concentration--Ihkhmy03.8 kg (220 lb)08/03/2025 10:52 AM EDT Nauuol233.4 cm (5')04/04/2025 9:24 PM EDTBody Mass Index42.9704/04/2025 9:24 PM EDT Plan of Treatment Health MaintenanceDue DateLast DoneCommentsHepatitis B vaccine (1 of 3 - 19+ 3- dose series)1998FIT/FOBT: Average risk2024Fecal-DNA (Cologuard): Average risk2024Sigmoidoscopy/CT hehyekaqfyom41/25/2024TaP/Tdap/Td vaccine (2 - Td or Tdap)Flu vaccine (#1)05/05/2025OVID-19 Vaccine (1 - season)2025Depression Lgoifcrbfs89, 11/15/2024A1C test (Diabetic or Prediabetic), 04/14/2025, 11/14/2024, Additional history existsGFR test (Diabetes, CKD 3-4, OR last GFR 15-59), 07/21/2025, 06/12/2025, Additional history exists Breast cancer jrypyj87/3819Bjdzywftxbc90 Colorectal Cancer Vpcuuq5412/10/20277555Uaftxi93, 11/14/2024, 11/14/2024, Additional history existsHepatitis C cndykzLiytonumw44/09/2014 Cervical cancer screenDiscontinuedPap aojvhHxdagxsxgjfk74/21/2021, 03/20/2017HIV imksbhEygwtxvzp88/09/2022Diabetes rywznnUqwjxluvyypv57/29/2025, 04/14/2025, 11/14/2024, Additional history existsHPV (without or [...] complete this topic Procedures Procedure NamePriorityDate/TimeAssociated DiagnosisCommentsHEMOGLOBIN Z9SBmfdqos 08/02/2025 11:57 AM EDT Pre-diabetes BASIC METABOLIC EISWLCuzzkut87/29/2025 11:57 AM EDT Stage 3a chronic kidney disease (HCC) Pre-diabetes X-RAY FOOT 3+MVUhiygcf96/21/2025 4:26 PM EDTSEDIMENTATION TOFRTolxnvx90/17/2025 3:37 PM EDT C-REACTIVE JGLNYEBZfhadkj95/17/2025 3:37 PM EDT HUGRjvdmso75/17/2025 3:37 PM EDT BASIC METABOLIC NPQYQZkdodeb70/17/2025 3:37 PM EDT XR FOOT LIMITED TXFCXUDZDMxbxycg52/24/2025 10:53 AM EDTVITAMIN D 25 HYDROXY Uutrwfi9206/12/2025 9:59 AM EDT PROTEIN, URINE, IDWYAQSejvaoa96/08/2025 9:59 AM EDT CREATININE, RANDOM OVPWUWdeqtli18/05/2025 9:59 AM EDT RENAL FUNCTION RESARDnailqh57/08/2025 9:59 AM EDT PTH, KGLWMGRnviebq82/08/2025 9:59 AM EDT LIPID WCNZEXvkmtin90/11/2025 9:54 AM EDT Mixed hyperlipidemia NITA BRIAN DIGITAL SCREEN EQGLHGGJQJcyiiew38/14/2025 11:51 AM EDT Encounter for screening mammogram for malignant neoplasm of breast HIV PCWDLZPjaearm82/09/2022 2:09 PM EDT Encounter for screening for HIV HM PAP IFZVJOdszqjd11/21/2021HM DVFZHLQRUYTOaimokn75/07/2018HEPATITIS C ANTIBODY Ttsiugd3106/13/2014 8:54 AM EDT from Last 3 Months or Most Recently Relevant to Health Maintenance Results * Hemoglobin A1C (08/02/2025 11:57 AM EDT)ComponentValueRef RangeTest Method Analysis TimePerformed AtPathologist SignatureHemoglobin A1C5.24.0 - 6.0 % 08/02/2025 11:57 AM EDTMERCY LABORATORIESEstimated Avg Zzwpwxz085gj/dL 08/02/2025 11:57 AM EDTMERCY LABORATORIESComment: The ADA and AACC recommend providing the estimated average glucose result to permit better patient understanding of their HBA1c result. Specimen (Source)Anatomical Location / LateralityCollection Method / Volume Collection TimeReceived TimeBloodBLOOD SPECIMEN / Rdeqvvl7808/02/2025 11:57 AM EDT 08/02/2025 11:58 AM EDT Narrative Authorizing ProviderResult TypeResult StatusBilly Back MDCHEMISTRY ORDERABLES Final ResultPerforming OrganizationAddressCity/State/ZIP CodePhone Number [facility] [employer] [facility] [address] [place] [address], [facility] [phone] [facility] [employer] [address] [place] [address], [facility] [phone] * (ABNORMAL) Basic Metabolic Panel (08/02/2025 11:57 AM EDT) Only the most recent of2 resultswithin the time period is included. ComponentValueRef RangeTest MethodAnalysis TimePerformed AtPathologist Signature Zictql927303 - 144 mmol/L1 11:57 AM [facility] Potassium4.33.7 - 5.3 mmol/L1 11:57 AM [facility] Eipelfum33947 - 107 mmol/L1 11:57 AM [facility] RFSKT99091 - 31 mmol/L1 11:57 AM [facility] LABAnion Gap99 - 17 mmol/L1 11:57 AM [facility] KEPYhqyjtw1355 - 99 mg/dL 08/02/2025 11:57 AM [facility] QVEZLR428 - 20 mg/dL08/02/2025 11:57 AM [facility] LABCreatinine1.5(H)0.5 - 0.9 mg/dL08/02/2025 11:57 AM [facility] LABEst, Glom Filt Rate43(L)>60 mL/min/1.16c23908/02/2025 11:57 AM FST21ARD LABComment: ? These results are not intended [...] secretion. Calcium9.78.6 - 10.4 mg/dL08/02/2025 11:57 AM [facility] Specimen (Source)Anatomical Location / LateralityCollection Method / Volume Collection TimeReceived TimeBloodBLOOD SPECIMEN / Fpihgas6808/02/2025 11:57 AM EDT 08/02/2025 11:58 AM EDT Narrative Authorizing ProviderResult TypeResult StatusBilly Back MDCHEMISTRY ORDERABLES Final ResultPerforming OrganizationAddressCity/State/ZIP CodePhone Number [facility] [address] [place] [address], [facility] [phone] * X-RAY FOOT 3+VW (07/25/2025 4:26 PM EDT) Narrative Authorizing ProviderResult TypeResult StatusHistorical Provider [facility] Final Result * (ABNORMAL) Sedimentation Rate (07/21/2025 3:37 PM EDT)ComponentValueRef Range Test MethodAnalysis TimePerformed AtPathologist SignatureSed Rate, Woxkynewb15 (H)0 - 20 mm/Hr07/21/2025 3:37 PM EDOH[facility] [employer]ARD LABSpecimen (Source) Anatomical Location / LateralityCollection Method / VolumeCollection Time Received Time07/21/2025 3:37 PM EDT1 3:38 PM EDT Narrative Authorizing ProviderResult TypeResult StatusKimberly Colton PAHEMATOLOGY ORDERABLESFinal ResultPerforming OrganizationAddressCity/State/ZIP CodePhone Number [facility] [address] [place] [address], [facility] [phone] * (ABNORMAL) CBC (07/21/2025 3:37 PM EDT)ComponentValueRef RangeTest Method Analysis TimePerformed AtPathologist SignatureWBC9.93.5 - 11.0 k/uL07/21/2025 3:37 PM EDBARNEY CHILDREN'S MEDICAL CENTERSARcode BioscienceARD LABRBC3.90(L)4.00 - 5.20 m/uL07/21/2025 3:37 PM EDBARNEY CHILDREN'S MEDICAL CENTERSARcode BioscienceARD TMVGlgynhpbag60.0(L)12.0 - 16.0 g/dL07/21/2025 3:37 PM EDBARNEY CHILDREN'S MEDICAL CENTERSARcode BioscienceARD LTQKwwwymucha64.3(L)36.0 - 46.0 %07/21/2025 3:37 PM EDSELECT [facility] HUZSZD00.980.0 - 100.0 fL07/21/2025 3:37 PM EDUN[facility] IKXQSY95.226.0 - 34.0 pg07/21/2025 3:37 PM [facility] MNGDPHZ59.131.0 - 37.0 g/dL07/21/2025 3:37 PM [facility] UUQQQV30.1(H)12.1 - 15.2 %07/21/2025 3:37 PM [facility] LAB Bmbmncmap892695 - 450 k/uL07/21/2025 3:37 PM [facility] LABMPV 11.46.0 - 12.0 fL07/21/2025 3:37 PM [facility] LABSpecimen (Source)Anatomical Location / LateralityCollection Method / VolumeCollection TimeReceived Time07/21/2025 3:37 PM EDT1 3:38 PM EDT Narrative Authorizing ProviderResult TypeResult StatusKimber [place] PAHEMATOLOGY ORDERABLESFinal ResultPerforming OrganizationAddressCity/State/ZIP CodePhone Number [facility] [address] [phone] * (ABNORMAL) C-Reactive Protein (07/21/2025 3:37 PM EDT)ComponentValueRef Range Test MethodAnalysis TimePerformed AtPathologist CkupsvoaoTRU99.1(H)0.0 - 5.0 mg/L1 3:37 PM [facility] LABSpecimen (Source)Anatomical Location / LateralityCollection Method / VolumeCollection TimeReceived Time 07/21/2025 3:37 PM EDT1 3:38 PM EDT Narrative Authorizing ProviderResult TypeResult StatusKimberrubens Colton PACHEMISTRY ORDERABLESFinal ResultPerforming OrganizationAddressty/State/ZIP CodePhone Number [facility] [address] [phone] * XR FOOT LIMITED BILATERAL (06/28/2025 10:53 [...] EDT Narrative Authorizing ProviderResult TypeResult StatusJanel Dorsey RECORD FILING CLERK-CURINE ORDERABLESFinal ResultPerforming OrganizationAddressty/State/ZIP CodePhone Number [facility] [address] [phone] [employer] [address] [place] [address] * Creatinine, Random Urine (06/12/2025 9:59 AM EDT)ComponentValueRef RangeTest MethodAnalysis TimePerformed AtPathologist SignatureCreatinine, Ur52.428.0 - 217.0 mg/dL06/12/2025 9:59 AM EDTMERCY LABORATORIESComment:Reference range defined for 1st morning urineSpecimen (Source)Anatomical Location / Laterality Collection Method / VolumeCollection TimeReceived Time06/12/2025 9:59 AM EDT 06/12/2025 10:00 AM EDT Narrative Authorizing ProviderResult TypeResult StatusJanel Dorsey RECORD FILING CLERK-CURINE ORDERABLESFinal ResultPerforming OrganizationAddressty/State/ZIP CodePhone Number [facility] [address] [place] [id number], [facility] [phone] [employer] [address] [place] [address] * (ABNORMAL) Vitamin D 25 Hydroxy (06/12/2025 9:59 AM EDT)ComponentValueRef RangeTest MethodAnalysis TimePerformed AtPathologist SignatureVit D, 25-Blmbtts76.2(L)30.0 - 100.0 ng/mL06/12/2025 9:59 AM EDTMERCY LABORATORIES Comment: Reference Range: Vitamin D status ? Range Deficiency <20 ng/mL Mild Deficiency ? 20-30 ng/mL Sufficiency ?30-100 ng/mL Toxicity >100 ng/mL Specimen (Source)Anatomical Location / LateralityCollection Method / Volume Collection TimeReceived Time06/12/2025 9:59 AM EDT06/12/2025 10:00 AM EDT Narrative Authorizing ProviderResult TypeResult StatusJanel Dorsey RECORD FILING CLERK-CCHEMISTRY ORDERABLESFinal ResultPerforming OrganizationAddressty/State/ZIP CodePhone Number [facility] [address] [place] [place] [address], [facility] [phone] [employer] [address] [place] [address], [facility] [phone] * PTH, Intact (06/12/2025 9:59 AM EDT)ComponentValueRef RangeTest MethodAnalysis TimePerformed AtPathologist SignaturePth Rckozu17.017.9 - 58.6 pg/mL06/12/2025 9:59 AM EDTMERCY LABORATORIESSpecimen (Source)Anatomical Location / Laterality Collection Method / VolumeCollection TimeReceived Time06/12/2025 9:59 AM EDT 06/12/2025 10:00 AM EDT Narrative Authorizing ProviderResult TypeResult StatusKevindanny Dorsey RECORD FILING CLERK-CCHEMISTRY ORDERABLESFinal ResultPerforming OrganizationAddressty/State/ZIP CodePhone Number [facility] [address] [place] [id number], [facility] [phone] [employer] [address] [place] [address] * (ABNORMAL) Renal Function Panel (06/12/2025 9:59 AM EDT)ComponentValueRef RangeTest MethodAnalysis TimePerformed AtPathologist JodwxswjzTurvkgk785(H)70 - 99 mg/dL06/12/2025 9:59 AM EDAffinity Therapeutics SY[facility]EE OPHMBR88(H)6 - 20 mg/dL 06/12/2025 9:59 AM EDWealthEngineARD LABCreatinine1.3(H)0.5 - 0.9 mg/dL 06/12/2025 9:59 AM [employer] [facility]EE LABEst, Glom Filt Rate51(L)>60 mL/min/1.07w81206/12/2025 9:59 AM [employer] [facility] LABComment: ? These results are not [...] secretion. Calcium9.28.6 - 10.4 mg/dL06/12/2025 9:59 AM [employer] [facility] LABAlbumin 4.23.5 - 5.2 g/dL06/12/2025 9:59 AM [facility] LABPhosphorus3.92.6 - 4.5 mg/dL06/12/2025 9:59 AM [employer] [place] WINUtehtw468359 - 144 mmol/L06/12/2025 9:59 AM [facility] LABPotassium4.53.7 - 5.3 mmol/L 06/12/2025 9:59 AM [facility] IZDLxjquhci9683 - 107 mmol/L 06/12/2025 9:59 AM [facility] ROTRA10730 - 31 mmol/L06/12/2025 9:59 AM [employer] [facility] LABAnion Buc309 - 17 mmol/L06/12/2025 9:59 AM EDT [employer]rsARD LABSpecimen (Source)Anatomical Location / Laterality Collection Method / VolumeCollection TimeReceived Time06/12/2025 9:59 AM EDT 06/12/2025 10:00 AM EDT Narrative Authorizing ProviderResult TypeResult StatusJacquedayna Dorsey RECORD FILING CLERK-CCHEMISTRY ORDERABLESFinal ResultPerforming OrganizationAddressCity/State/ZIP CodePhone Number [facility] [address] [place] [address], [facility] [phone] * (ABNORMAL) Lipid Panel (04/14/2025 9:54 AM EDT)ComponentValueRef RangeTest MethodAnalysis TimePerformed AtPathologist SignatureCholesterol, Bjhrt0468 - 199 mg/dL04/14/2025 9:54 AM EDTMERCY LABORATORIESComment: Cholesterol Guidelines: <200 Desirable 200-240 ??Borderline >240 Undesirable HDL31(L)>40 mg/dL04/14/2025 9:54 AM EDTMERCY LABORATORIESComment: HDL Guidelines: <40 Undesirable 40-59 ?Borderline >59 Desirable LDL Qoziwzjuhad454 - 100 mg/dL04/14/2025 9:54 AM EDTMERCY LABORATORIESComment: LDL Guidelines: <100 Desirable 100-129 ?? Near to/above Desirable 130-159 ?? Borderline >159 Undesirable Direct (measured) LDL and calculated LDL are not interchangeable tests. Chol/HDL Ratio5.1(H)<5.007 9:54 AM EDTMERCY DCABTGWLDIFWKpxdfbvretfki611 (H)<150 mg/dL04/14/2025 9:54 AM EDTMERCY LABORATORIESComment: Triglyceride Guidelines: <150 Desirable 150-199 ??Borderline 200-499 ??High >499 Very high Based on AHA Guidelines for fasting triglyceride, July 2012. VLDL68(H)1 - 30 mg/dL04/14/2025 9:54 AM EDTMERCY LABORATORIESSpecimen (Source) Anatomical Location / LateralityCollection Method / VolumeCollection Time Received TimeBloodBLOOD SPECIMEN / Jljdmqt6904/14/2025 9:54 AM EDT04/14/2025 9:55 AM EDT Narrative Authorizing ProviderResult TypeResult StatusBilly Back MDCHEMISTRY ORDERABLES Final ResultPerforming OrganizationAddressCity/State/ZIP CodePhone Number [facility] [employer] [facility] [address] [place] [address], [facility] [phone] [facility] [address] [place] [address], [facility] [phone] * NITA BRIAN DIGITAL SCREEN BILATERAL (02/15/2025 11:51 AM EDT)Anatomical Region LateralityModalityBreastBilateralMammographySpecimen (Source)Anatomical Location / LateralityCollection Method / VolumeCollection TimeReceived Time 02/15/2025 11:51 AM EDT Impressions 02/28/2025 12:55 PM EDT OVERALL ASSESSMENT: BIRADS: 1 Negative, no evidence of malignancy. A letter of notification will be mailed to the patient. Performing Facility: [facility] [address] [place], [place] [address] Narrative 02/28/2025 12:55 PM EDT HISTORY: Screening. [...] PM EDT)ComponentValueRef RangeTest MethodAnalysis TimePerformed AtPathologist SignatureHIV Ag/YkIVJQJZAYJJFCFILCMCZRDU06/09/2022 2:09 PM EDTMERCY LABORATORIESComment: No laboratory evidence of HIV infection. ??If acute HIV infection is suspected, consider testing for HIV-1 RNA. Specimen (Source)Anatomical Location / LateralityCollection Method / Volume Collection TimeReceived TimeBLOOD SPECIMEN / Spvjhql6104/12/2022 2:09 PM EDT 04/12/2022 2:11 PM EDT Narrative Authorizing ProviderResult TypeResult StatusBilly Back MDIMMUNOLOGY ORDERABLES Final ResultPerforming OrganizationAddressCity/State/ZIP CodePhone Number [facility] [address] [place] [address], [facility] [phone] [facility] [employer] [address] [place] [address], [facility] [phone] * HM PAP SMEAR (09/24/2021) Narrative Authorizing [...] ordering HCV RNA by PCR. Performed at [address] [address] ([phone] Specimen (Source)Anatomical Location / LateralityCollection Method / Volume Collection TimeReceived Time06/13/2014 8:54 AM EDT06/13/2014 8:55 AM EDT Narrative Authorizing ProviderResult TypeResult StatusSuog Klein MDIMMUNOLOGY ORDERABLESFinal ResultPerforming OrganizationAddressCity/State/ZIP CodePhone Number [facility] [address] [facility] [place] [place] [address], [facility] [phone] [facility] from Last 3 Months or Most Recently Relevant to Health Maintenance Additional Health Concerns InfectionOnset DateLast IndicatedMRSA Comment:Blood and spine 05/16/2016MDRO (multi-drug resistant organism) Comment:E. Coli urine 05/02/2022/ Insurance Advance Directives * Full Code (Latest Code Status on File) Date ActivatedDate UxlacwvujxsAzmxlbmp77/11/2018 4:17 PM08/25/2018 8:55 PM * Full Code Date ActivatedDate InactivatedComments03/19/2017 1:37 PM03/19/2017 4:32 PM * Full Code Date ActivatedDate InactivatedComments03/19/2017 10:57 AM03/19/2017 1:37 PM * Full Code Date ActivatedDate InactivatedComments03/05/2017 12:56 PM03/05/2017 3:55 PM * Full Code Date ActivatedDate InactivatedComments03/05/2017 10:05 AM03/05/2017 12:56 PM Care Teams Team MemberRelationshipSpecialtyStart DateEnd Date Felipe Adam MD 51 [place] [address] PCP - GeneralInternal Medicine11/14/11
== END 2025-08-23 14:15 | disposition home or self-care (01) ==
LOC: WC 14:15
PROVIDERS: PCP Internal Medicine; Visit Provider Physician Assistant
DX: E11.621 Type 2 diabetes mellitus with foot ulcer (principal); L97.422 Non-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 with fat layer exposed; L97.515 Non-pressure chronic ulcer of other part of right foot with muscle involvement without evidence of necrosis
CPT/HCPCS: 29445

== ENCOUNTER 2025-08-29 14:52 | Outpatient (OUT) | payer OTHER, SELFPAY ==
--- OUTSIDE RECORDS SUMMARY | 2024-03-15 05:40 | XMS_ITS ---
Author Organization The [facility] in [place] Address [address] [place] [address] Care Team Providers Care Spud Sorter Name Role Phone None, Unknown or Primary Care Provider Unavailab Roxanne Rodríguez Unavailable [phone] REASON FOR VISIT splint change, skin check Encounters Encounter Location Date Provider Diagnosis [facility] (PODIATRY) [address] [place] [address] [place] [address] 03/15/2024 Roxanne Segura Plan Of Treatment No Information Progress Notes * Celina GASPAR MDOB: 9 (45 yo F)Acc No.[id number]:03/15/2024 UNLOCKED PROGRESS NOTE Progress Note Patient: Celina DRAKE :?SABINA MckeonCDOB:1980???Age:43 Y ???Sex:FemaleDate:4Phone:[phone]:23 [facility]Pcp:Unknown or None Subjective: * Chief Complaints: * 1 . Splint change, skin check. * Medical History: Objective: * Vitals: Assessment: Plan: * Treatment: * * Electronic signature of Roxanne Segura PA-C on 08/29/2025 at 02:53 PM ESTSign off status: PendingVisit Status:?CANC (Cancelled) * Provider: Brady Segura PA-C Date: 0 03/15/2024 Generated for Printing/Faxing/eTransmitting on:?08/29/2025 02:53 PM EST
--- OUTSIDE RECORDS SUMMARY | 2024-04-14 06:20 | XMS_ITS ---
Author Organization The [facility] in [place] Address [address] [place] [address] Care Team Providers Care [place]. Representative Name Role Phone None, Unknown or Primary Care Provider Unavailab Roxanne Rodríguez Unavailable [phone] Encounters Encounter Location Date Provider Diagnosis [facility] (PODIATRY) [address] [place] [address] [place] [address] 04/14/2024 Roxanne Segura Plan Of Treatment No Information Progress Notes * Celina GASPAR MDOB: 9 (45 yo F)Acc No.[id number]:04/14/2024 UNLOCKED PROGRESS NOTE Nurse Visit Patient: Rubén Celina YAÑEZ :?SABINA MckeonCDOB:1980???Age:43 Y ???Sex:FemaleDate:4Phone:[phone]:23 [place], [place]-[address]Pcp:Unknown or None Subjective: * Chief Complaints: * * Medical History: Objective: * Vitals: Assessment: Plan: * Treatment: * * Electronic signature of Roxanne Segura PA-C on 08/29/2025 at 02:54 PM ESTSign off status: PendingVisit Status:?CANC (Cancelled) * Provider: Brady Segura PA-C Date: 0 04/14/2024 Generated for Printing/Faxing/eTransmitting on:?08/29/2025 02:54 PM EST
--- OUTSIDE RECORDS SUMMARY | 2025-08-23 13:00 | XMS_ITS | Encounter Summary ---
Author Organization [facility] Address [address] [place] [address] Care Team Providers Care Registered Radiographer Name Role Phone Alcides Adam MD Primary Care Provider [phone] Reason for Referral * Imaging (Routine) - AuthorizedSpecialtyDiagnoses / ProceduresReferred By ContactReferred To ContactRadiology Diagnoses Idiopathic progressive polyneuropathy Chronic migraine without aura, not intractable, without status migrainosus Paresthesia Procedures MR brain w and wo contrast routine Jennie Barajas, WASTEWATER SUPERINTENDENT-DRIVER LICENSE AGENT [address] [place] [address] Phone: tel: fax: [facility] [address] [place] [address] Phone: tel: fax: Referral IDStatusReasonStart DateExpiration DateVisits RequestedVisits [id number]/19/20255/ Reason for Visit * ReasonCommentsNeck PainSleep Apnea Encounter Details DateTypeDepartmentCare Team (Latest Contact Info)Yeozxcsdbit58/19/2025 1:00 PM ESTOffice Visit [facility] [address] [facility] [place] [id number] Jennie Barajas APRN-DRIVER LICENSE AGENT [address] [place] [address] Idiopathic progressive polyneuropathy (Primary Dx); Chronic migraine without aura, not intractable, without status migrainosus; Paresthesia; Bilateral occipital neuralgia; Occipital neuralgia of right side; Stage 3a chronic kidney disease (CMS-HCC); Hypersomnia with sleep apnea; Major depressive disorder, recurrent, mild Social History Tobacco UseTypesPacks/DayYears UsedDateSmoking Tobacco: NeverSmokeless Tobacco: NeverAlcohol UseStandard Drinks/WeekCommentsNot Currently0 (1 standard drink = 0.6 oz pure alcohol)1-2 times a yearCommentsUnknownSex and Gender InformationValueDate RecordedSex Assigned at BirthNot on fileLegal SexFemale 12/17/2022 7:36 PM EDTGender IdentityNot on fileSexual OrientationNot on file documented as of this encounter Last Filed Vital Signs Vital SignReadingTime TakenCommentsBlood Hbedklqe095/8211 1:11 PM EST Pulse--Temperature--Respiratory Lnpf403410/23/2024 1:11 PM ESTOxygen Tdgagfleeo67% 08/23/2025 1:11 PM ESTInhaled Oxygen Concentration--Qitsfm26.3 kg (210 lb) 08/23/2025 1:11 PM ESTHeight--Body Mass Index38.4108 11:47 AM EDT documented in this encounter Progress Notes * Jennie Barajas, DEVONTE-DRIVER LICENSE AGENT - 08/23/2025 1:00 PM EST Images from the original note were not included. Visit Summary: Celina Egan presented with neck pain radiating to her right arm, occipital headaches occurring twice weekly, and episodes of lip/tongue quivering with stuttering. Her medical history includes stage 3 chronic kidney disease, sleep apnea, insulin resistance, and migraines. She takes Singulair preventatively and Nurtec as needed for migraines, Farxiga for blood sugar (A1c improved from 5.8 to 5.2), and Zoloft for depression. Plan includes obtaining prior authorization for occipitalinjections and brain MRI, continuing current medications, and possibly starting Vyvanse. Subjective Celina Egan is a 45 y.o. female who presents for Neck Pain and Sleep Apnea. TENS/IFC ordered at last visit. XR cervical 05/24/25 History of Present Illness Chief Complaint Neck pain with intermittent radiation to right arm, occipital pain, headaches twice weekly in back of head or causing numbness on right side, episodes of lip and tongue quivering with stuttering occurring about two weeks ago History of Present Illness Celina Egan presents for follow-up of neck pain, headaches, and other ongoing medical conditions. She declined a previously ordered TENS unit for her neck pain, stating she had used one in the past without benefit. She continues to experience intermittent radiation of her neck pain into her right arm and occipital pain. When she has headaches, they occur either in the back of her head or cause anumbing effect on the right side. She experiences headaches about twice a week, though they are notvery intense. She takes Singulair as a preventative medication and uses Nurtec as needed, typicallytwice weekly. She reports episodes where her lip and tongue quiver and she stutters, with the most recent episode occurring about two weeks ago. She has not had any occipital injections for her migraines. Her sleep apnea is well-controlled with her machine. She is taking Farxiga for blood sugar management, which has lowered her A1c from 5.8 to 5.2, and she has insulin resistance. She is also on Zoloft and might start Vyvanse. She has stage 3 chronic kidney disease. Medical History - Stage 3 chronic kidney disease - Sleep apnea - Insulin resistance - Migraines Medications and Supplements - Singulair as a preventative medication. - Nurtec as needed, usually twice a week. - Farxiga for blood sugar. - Lowered her A1c from 5.8 to 5.2. - Zoloft. Review of Systems HEENT: Positive for headaches occurring twice weekly, described as either occipital or causing numbness on the right side, reported as not very intense. Musculoskeletal: Positive for neck pain with intermittent radiation to right arm. Neurological: Positive for episodes of lip and tongue quivering with stuttering. Neurological Exam Mental Status Awake, alert and [...] reflexes: Goyo's absent. Ankle clonus absent. Coordination Yslmys-rc-oqxx, rapid alternating movements and ruwl-se-aiun normal bilaterally without dysmetria. Gait Normal casual, toe, heel and tandem gait. Romberg is absent. Procedures Objective Blood pressure 118/82, resp. rate 18, weight 210 lb, SpO2 98%. Physical Exam Results Laboratory, Imaging, and Diagnostic Test Results - Neck X-ray: Normal - Hemoglobin A1c: Current 5.2, previous 5.8 Assessment & Plan ICD-10-CM 1. Idiopathic progressive polyneuropathy G60.3 MR brain w and wo contrast routine 2. Chronic migraine without aura, not intractable, without status migrainosus G43.709 MR brain w and wo contrast routine 3. Paresthesia R20.2 MR brain w and wo contrast routine Celina Egan presents with chronic neck pain with radiation, occipital headaches, and recent episodes of lip/tongue quivering with stuttering. Chronic neck pain with radiation Assessment: Patient has chronic neck pain with intermittent radiation to the right arm and associated occipital pain. Previously declined TENS unit therapy due to lack of efficacy with prior use. Recent neck x-ray shows normal findings. Plan: - Obtain prior authorization for occipital injections 2. Migraine headaches Assessment: Patient experiences headaches approximately twice weekly, characterized by either occipital location or causing numbness on the right side. Headaches are described as not very intense. Currently managed with preventive and abortive therapy. Plan: - Continue Singulair as preventative medication - Continue Nurtec as needed, currently used twice weekly - Obtain prior authorization for occipital injections 3. Occipital Neuralgia Assessment: Patient experiences headaches approximately twice weekly, characterized by either occipital location or causing numbness on the right side. Plan: -Will obtain PA for occipital block -follow up as soon as approved. 4. Neurological symptoms Assessment: Patient reports episodes of lip and tongue quivering with stuttering, most recent episode occurring approximately two weeks ago. These symptoms warrant further neurological evaluation. Plan: - Obtain MRI of brain rule out lesion, mass or abnormality 5. Type 2 diabetes mellitus Assessment: Patient has insulin resistance with improved glycemic control, A1c decreased from 5.8 to 5.2 on current therapy. Plan: - Continue Farxiga for blood sugar management 6. Sleep apnea Assessment: Sleep apnea is well-controlled with current CPAP therapy. Plan: - Continue current CPAP machine therapy 7. Stage 3 chronic kidney disease Assessment: Patient has established stage 3 chronic kidney disease requiring ongoing monitoring. Plan: - Continue monitoring wit 8. Depression Assessment: Patient is currently on antidepressant therapy with consideration for additional medication management. Plan: - Continue Zoloft - May start Vyvanse (lisdexamfetamine) with psychiatry This clinical note was created utilizing [employer] documentation system. All information has been thoroughly reviewed, corrected as necessary, and authenticated by the provider to ensure accuracy and completeness. On occasion, ambient documentation system erroneously drops words or replaces a spoken word with a similar sounding word. Please notify with any questions or concerns regarding this clinical note. In the event this information is protected by the Federal Confidentiality of Alcohol and Drug AbusePatient Records regulations: The Federal rules restrict any use of the information to criminally investigate or prosecute any alcohol or drug abuse patient. Level of service: Est level 5 (60-65 min).Total time 65 minutes spent reviewing records, performingmedically appropriate exam, counseling , education, ordering medication, tests, and/or procedures, documenting health information into the health record, communicating results to the patient, educating patient, family, caregiver and coordinating care. documented in this encounter Plan of Treatment DateTypeDepartmentCare Team (Latest Contact Info)Cmmqomxeuza40/12/2026 2:40 PM ESTOffice Visit [facility] [address] [place] [address] Trace Casas MD [address] [facility] [address] [address] NameTypePriorityAssociated DiagnosesOrder ScheduleMR brain w and wo contrast routineImagingRoutine Idiopathic progressive polyneuropathy Chronic migraine without aura, not intractable, without status migrainosus Paresthesia Expected: 08/23/2025, Expires: 08/23/2026documented as of this encounter Visit Diagnoses Diagnosis Idiopathic progressive polyneuropathy- Primary Chronic migraine without aura, not intractable, without status migrainosus Paresthesia Disturbance of skin sensation Bilateral occipital neuralgia Occipital neuralgia of right side Stage 3a chronic kidney disease (CMS-HCC) 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
--- OUTSIDE RECORDS SUMMARY | 2025-08-29 14:54 | XMS_ITS | Encounter Summary ---
Author Organization [facility] Address [address] [facility] [place] [address] Care Team Providers Care Director Channel Name Role Phone Alcides Adam MD Primary Care Provider [phone] Encounter Details DateTypeDepartmentCare Team (Latest Contact Info)Quifhpjaedn59/19/2025Travel Social History Tobacco UseTypesPacks/DayYears UsedDateSmoking Tobacco: NeverSmokeless Tobacco: NeverAlcohol UseStandard Drinks/WeekCommentsNot Currently0 (1 standard drink = 0.6 oz pure alcohol)1-2 times a yearCommentsUnknownSex and Gender InformationValueDate RecordedSex Assigned at BirthNot on fileLegal SexFemale 12/17/2022 7:36 PM EDTGender IdentityNot on fileSexual OrientationNot on file documented as of this encounter Plan of Treatment DateTypeDepartmentCare Team (Latest Contact Info)Khuiukyuzcg39/12/2026 2:40 PM ESTOffice Visit [facility] [address] [address] Traec Casas MD [address] [facility] [address] [place] [address] documented as of this encounter Visit Diagnoses Not on filedocumented in this encounter Care Teams Team MemberRelationshipSpecialtyStart DateEnd Date Alcides Adam MD [address] [place] [address] PCP - GeneralFamily Medicine3/6/25documented as of this encounter
--- OUTSIDE RECORDS SUMMARY | 2025-08-29 14:54 | XMS_ITS | Clinical Summary ---
Author Organization [facility] Address [address] [place] [address] Care Team Providers Care Entry Level Web Developer Name Role Phone Felipe Adam MD Primary Care Provider [phone] Allergies Active AllergyReactionsCriticalityNoted DateCommentsChlorhexidineRashLow 03/03/2023TopiramateOther (See Comments)10/29/2023 [...] InformationValueDate RecordedSex Assigned at BirthNot on fileLegal HwwHjggte75/12/2014 10:22 AM EDTGender FcgrcbfzEwzdfe11/07/2025 9:28 AM ESTSexual ExmampfluokAhvuzjtg60/07/2025 9:28 AM EST Last Filed Vital Signs Vital SignReadingTime TakenCommentsBlood Stlihzbu537/8703/03/2023 2:44 PM EDT Oadzk944303/03/2023 2:44 PM SKDEsuwsnslbws99.8 ??C (98.3 ??F)10/11/2024 9:42 AM ESTRespiratory Dqdp312601/06/2023 5:48 PM EDTOxygen Tluknbtrwv71%01/06/2023 4:22 PM EDTInhaled Oxygen Concentration--Xhluxk63.8 kg (209 lb)10/11/2024 9:42 AM EST Aoflbp134.5 cm (5' 2 )10/11/2024 9:42 AM ESTBody Mass Index38.23010/11/2024 9:42 AM EST Plan of Treatment DateTypeDepartmentCare Team (Latest Contact Info)Ardaefbhxlr26/08/2026 10:30 AM ESTOffice Visit [facility] [address] [facility] [place] [address] Dimas Adair MD [address] [place] [address] Health MaintenanceDue DateLast DoneCommentsCT Ftplqkyjzvev1979Fecal DNA 1979Fecal occult blood test (FOBT,FIT)1979Flexible sigmoidoscopy 1979MMR Vaccines (1 of 1 - Standard series)1980Depression Screening/Follow-Up (PHQ-2/9)1991Hepatitis C Qskiwfrpi18/25/1997Hepatitis B Vaccines (1 of 3 - 19+ 3-dose series)05/29/19987751Bbzspbuap94/25/2019Pap Smear Cervical Cancer Xzmijvzoo06/16/2022HPV/Ieufjj1603/20/2022 03/20/2017Wellness Visit/05/2022Tetanus/Diphtheria/Pertussis (2 - Td or Tdap)COVID-19 Vaccine (1 - season)2025 Influenza Vaccine (#1)06/05/20251387Xcouzncfhxz28Colorectal Cancer Screening/Qmiirsejcl55/07/2028Zoster Vaccines (1 of 2)2029RSV Vaccines (1 - 1-dose 75+ series)2054HIV PjdooscgnInhfoqfpz04/16/2018HIB VaccinesAged OutNo longer eligible based on patient's [...] Procedures Procedure NamePriorityDate/TimeAssociated DiagnosisCommentsHIV 1/2 SCREEN (4TH GENERATION)Oapumuv9510/20/2017 5:25 PM EST Encounter for general adult medical examination without abnormal findings THINPREP PAP VDOTBOfbrfgt06/16/2017 12:00 AM EDT HIGH RISK HPV WITH GENOTYPE 16,38Paiqebd64/16/2017 12:00 AM EDT Encounter for general adult medical examination without abnormal findings from Last 3 Months or Most Recently Relevant to Health Maintenance Results * HIV Antibody (HIV1/HIV2) (10/20/2017 5:25 PM EST)ComponentValueRef RangeTest MethodAnalysis TimePerformed AtPathologist SignatureHIV 1-2 ScreenNegative Najmdoae15/17/2018 9:47 AM [facility] LABSpecimen (Source)Anatomical Location / LateralityCollection Method / VolumeCollection TimeReceived TimeBloodBLOOD SPECIMEN / Mcttgrx5810/20/2017 5:25 PM EST10/20/2017 10:58 PM EST Narrative [facility] - 10/21/2017 9:47 AM EST Test performed using [employer] Immunodiagnostic system. Authorizing ProviderResult TypeResult StatusMichuyen Parry MDLAB BLOOD ORDERABLESFinal ResultPerforming OrganizationAddressCity/State/ZIP CodePhone Number [facility] [address] [place] [address] * High Risk HPV with Genotype 16,18 (03/20/2017 12:00 AM EDT)ComponentValueRef RangeTest MethodAnalysis TimePerformed AtPathologist SignatureHPV 16Negative Xsvmorxr18/28/2017 2:01 PM [facility] LABHPV 18Negative Qaxiqhyp36/28/2017 2:01 PM [facility] LABHPV, Other HR VktqaOqqlyqvrYzitlitt09/28/2017 2:01 PM [facility] Specimen (Source)Anatomical Location / LateralityCollection Method / Volume Collection TimeReceived TimePap, Liquid BasedCERVIX UTERI STRUCTURE / Unknown 9:32 PM EDT Narrative [facility] - 04/01/2017 2:01 PM EDT Assay performed using [employer] Twin 4800 system utilizing Real-Time PCR to amplify target HPV DNA. This system specifically identifies HPV16 and HPV18 while concurrently detecting the other twelve high risk types (31,33,35,39,45,51,52,56,58,59,66,68). Authorizing ProviderResult TypeResult StatusJohn R. Oishei Children'S Hospitalmalcom Pinky Richard DOBODY FLUIDS AND STOOLS ORDERABLESFinal ResultPerforming OrganizationAddress City/State/ZIP CodePhone Number [facility] [address] [place] [address] * Thinprep Pap Smear (03/20/2017 12:00 AM [...] HPV18: Negative HPVOTHER: Negative Assay performed using Mariae Lena Twin 4800 system utilizing Real-Time PCR toamplify target HPV DNA. This system specifically identifies HPV16 jgfREZ91 while concurrently detecting the other twelve high risk types(31,33,35,39,45,51,52,56,58,59,66,68). Completed by on 2017-04-02 Electronically Signed By Arielle NEFF (ASCP) , Business Team Leader (Case signed 03/30/2017) The Papanicolaou smear is [...] Gasparcomelodie TypeRelation to PatientDate of BirthPhone Billing AddressPersonal/UopevmOdck92/ [phone] (Home) [address] [place] [address] Care Teams Team MemberRelationshipSpecialtyStart DateEnd Date Back, MD Felipe [address] [place] [address] PCP - GeneralInternal Medicine03/26/15
--- OUTSIDE RECORDS SUMMARY | 2025-08-29 14:54 | XMS_ITS | Clinical Summary ---
Author Organization [facility] Address [address] [place] [address] Phone Care Team Providers Care Loading Machine Operator Helper Name Role Phone Unavailable Primary Care Provider Unavailabl e Social History Tobacco UseTypesPacks/DayYears UsedDateSmoking Tobacco: Never Assessed CommentsUnknownSex and Gender InformationValueDate RecordedSex Assigned at Not on fileLegal PwsCxwtej40/25/2022 12:57 PM ESTGender IdentityNot on file Sexual OrientationNot on file Plan of Treatment Not on file
--- OUTSIDE RECORDS SUMMARY | 2025-08-29 14:54 | XMS_ITS | Encounter Summary ---
Author Organization [facility] Address [address] [facility] [place] [address] Care Team Providers Care Lab Intern Name Role Phone Alcides Adam MD Primary Care Provider [phone] Encounter Details DateTypeDepartmentCare Team (Latest Contact Info)Zyhwarohgfe78/19/2025Telephone [facility] [address] [facility] [address] [place] [address] Gauri Jay MA Social History Tobacco UseTypesPacks/DayYears UsedDateSmoking Tobacco: NeverSmokeless Tobacco: NeverAlcohol UseStandard Drinks/WeekCommentsNot Currently0 (1 standard drink = 0.6 oz pure alcohol)1-2 times a yearCommentsUnknownSex and Gender InformationValueDate RecordedSex Assigned at BirthNot on fileLegal SexFemale 12/17/2022 7:36 PM EDTGender IdentityNot on fileSexual OrientationNot on file documented as of this encounter Miscellaneous Notes * Telephone Encounter - Gauri Jay MA - 08/23/2025 1:30 PM EST Patient will need PA for occipital blocks documented in this encounter Plan of Treatment DateTypeDepartmentCare Team (Latest Contact Info)Ogeooxnbcan14/12/2026 2:40 PM ESTOffice Visit [facility] [address] [facility] [address] [place] [address] Trace Casas MD [address] [facility] [address] [address] documented as of this encounter Visit Diagnoses Not on filedocumented in this encounter Care Teams Team MemberRelationshipSpecialtyStart DateEnd Date Back, MD Alcides [address] [place] [address] PCP - GeneralFamily Medicine12/08/24documented as of this encounter
--- OUTSIDE RECORDS SUMMARY | 2025-08-29 14:54 | XMS_ITS | Encounter Summary ---
Author Organization [facility] Address [address] [id number] Care Team Providers Care Hay Sorter Name Role Phone Alcides Adam MD Primary Care Provider [phone] Reason for Referral * Injection (Routine) - Pending ReviewSpecialtyDiagnoses / ProceduresReferred By ContactReferred To ContactNeurology Diagnoses Occipital neuralgia of right side Procedures DC OFFICE/OUTPATIENT [facility] 60 MINUTES Trace Casas MD [address] [place] [address] Phone: tel: fax: Trace Casas MD [address] [facility] [address] [place] [address] Phone: tel: fax: Referral IDStatusReasonStart DateExpiration DateVisits RequestedVisits [id number] Review Perform Procedure / Encounter Details DateTypeDepartmentCare Team (Latest Contact Info)Gotkzvalnpp36/20/2025Telephone [facility] [address] [place] [phone] Mague Arauz, RT. R Social History Tobacco UseTypesPacks/DayYears UsedDateSmoking Tobacco: NeverSmokeless Tobacco: NeverAlcohol UseStandard Drinks/WeekCommentsNot Currently0 (1 standard drink = 0.6 oz pure alcohol)1-2 times a yearCommentsUnknownSex and Gender InformationValueDate RecordedSex Assigned at BirthNot on fileLegal SexFemale 12/17/2022 7:36 PM EDTGender IdentityNot on fileSexual OrientationNot on file documented as of this encounter Miscellaneous Notes * Telephone Encounter - RT. Patricia R - 08/24/2025 10:39 AM EST PA for occipitals [id number] documented in this encounter Plan of Treatment DateTypeDepartmentCare Team (Latest Contact Info)Moendexjcxd36/12/2026 2:40 PM ESTOffice Visit [facility] [address] [facility] [address] [place] [address] Trace Casas MD [address] [facility] [address] [address] NameTypePriorityAssociated DiagnosesOrder ScheduleAmbulatory referral to NeurologyOutpatient ReferralRoutine Occipital neuralgia of right side Expected: 08/24/2025 (Approximate), Expires: 02/21/2026documented as of this encounter Visit Diagnoses Diagnosis Occipital neuralgia of right side- Primary documented in this encounter Care Teams Team MemberRelationshipSpecialtyStart DateEnd Date Back, MD Alcides [address] [place] [address] PCP - GeneralFamily Medicine12/08/24documented as of this encounter
--- OUTSIDE RECORDS SUMMARY | 2025-08-29 14:54 | XMS_ITS | Continuity of Care Document ---
Author Organization [facility] Address [address] [place] [address] Phone [phone] Care Team Providers Care Pediatric Social Worker Name Role Phone Back, Alcides MELENDREZ Care Team Information Metallurgical Engineer + [phone] Problems Active Problems Provider Date Chronic kidney [...] Range N ote .Urine Protein/Creat. Random 06/12/2025 [place], [place] [phone].Urine Protein Random<4.Urine Creatinine Jtvezk13.4.V Ipth-Vitamin D006/12/2025[place], [place] [phone].Ipth40.0.Vitamin D, 25 Yyqkpku32.2.Renal Panel06/12/2025[place], [place] [phone].Albumin4.2.Calcium9.2.Carbon Taelhaj50.Pfgdrgvn19.Phosphorus3.9 .Potassium4.5.Ceoqdd347.BUN23.GFR Pzrdqcknh12Cfyn52.Creatinine-LC1.3.Urine Protein/Creat. Spwvof0305/10/2024[place], [place] [phone].Urine Protein Random9.Urine Creatinine Qlgcyj073.0.Urine Prot/Creat Ratio0.07.Ilwdnvkjk10/06/2024[place], [place] [phone].Magnesium2.2.Urinalysis-Onbidzq9805/10/2024[place], [place] [phone] Specific Gravity1.020Ua PH Test Strip5.0Ua ColoryellowUa AppearanceclearUa ProteintraceUa GlucosenegativeUa KetonesnegativeUa Bilirubin negativeUa UrobilinogennormalUa NitritenegativeUa Occult Bloodnegative.Renal Panel05/10/2024[place], [place] [phone].Albumin4.2.Calcium9.2.Carbon Pkmucwg21.Swrlwxnp806.Phosphorus3.8 .Potassium4.0.Hrqciw433.BUN19.GFR Rykyradxn95Hyoq84.Creatinine-LC1.3.Renal Panel 05/17/2023[place], [place] [phone].Albumin4.1.Calcium9.5.Carbon Hsmfmon09.Axixoszc443.Phosphorus3.0 .Potassium4.3.Uzzowv991.BUN17.GFR >70Iehl18.Creatinine-LC1.1.Urine Protein/Creat. Kqkjry9205/17/2023[place], [place] [phone].Urine Protein Wkfdfr91.Urine Creatinine Wnbhut541.1.Urine Prot/Creat Ratio0.07.Ipth05/17/2023[place], [place] [phone].Ipth47.1.Vitamin D, 25 Ztuemcv9505/17/2023[place], [place] [phone].Vitamin D, 25 Clrrehz68.1.Urine Protein/Creat. Dvezsb8205/20/2022 [place], [place] [phone].Urine Protein Random7.Urine Creatinine Kbajto71.1.Urine Prot/Creat Ratio0.07.Tibc-LC05/20/2022[place], [place] [phone].Tibc-LC263.Exhhmtrr46/16/2022[place], [place] [phone].Vtgjcboh638.Iron05/20/2022[place], [place] [phone].Iron48.Transferrin-LC05/20/2022[place], [place] [phone].Transferrin-LC280.T-Sat-LC05/20/2022[place], [place] [phone].T-Sat-LC0.18.V Ipth-Vitamin D005/20/2022[place], [place] [phone].Ipth39.91.Vitamin D, 25 Aqjvpui49.3.Zwacjumaf95/16/2022[place], [place] [phone].Magnesium2.1.Hemoglobin And Izinnpsgys70/16/2022[place], [place] [phone].Hemoglobin Blood11.1.Yfocoldojx20.3.Renal Panel05/20/2022[place], [place] [phone].Albumin4.4.Osfwkkq16.0.Carbon Cnpfsgo11.Bemdvpxx970.Phosphorus3.8 .Potassium4.3.Gtwuot636.BUN18.PJO62Prpp84.GFR Hqtdztcxe43Lucd72.Creatinine-LC 1.13.Renal Panel (Other Labs)05/21/2021[place], [place] [phone].Albumin4.2.Calcium9.2.Carbon Gouprpk29.Aajwvlod823.Creatinine-LC 1.18.Phosphorus3.7.Tfsghs464.BUN19.VSY41Rdle20.Potassium4.2.Urine Protein/Creat. Xsndhq0705/21/2021[place], [place] [phone].Urine Protein Random7.Urine Creatinine Dkxdpg845.7.Magnesium 05/21/2021[place], [place] [phone].Magnesium2.2.Urinalysis-Pbgvepm1905/21/2021[place] [phone] Specific Gravity1.020Ua PH Test Strip5.0Ua ColorYELLOWUa AppearanceCLEARUa ProteinTRACEUa GlucoseNEGATIVEUa KetonesNEGATIVEUa UrobilinogenNORMALUa Occult BloodNEGATIVE.Ua05/25/2020[place] [phone] AppearanceclearUa Bilirubin-Ua Blood-Ua ColoryellowUa Glucose 100mg/dlUa Leuko-Ua Nitrite-Ua PH Test Strip6.0Ua Protein-Ua Specific [place] 1.020Ua Urobilinogen-.Urine Protein/Creat. Xgfeps6505/25/2020[place], [place] [phone].Urine Protein Random8.Urine Creatinine Jpeuex571.2.Urine Prot/Creat Ratio0.08.Renal Panel05/25/2020[place], [place] [phone].Albumin4.4.Dujdgkg65.1.Carbon Hyxqpju48.Vequbism578.Creatinine-LC 1.37.Byfidtqxht88.Qscztf564.BUN24.GFR-MC07Rmnx46.Potassium4.6.Renal Panel 06/17/2019[place], [place] [phone].Albumin4.3.Trobqno05.4.Carbon Fjrzlgx20.Lkkmvdyg369.Creatinine-LC 1.27.Phosphorus3.0.Nzgjur719.BUN18.GFR-FW30Bxuv07.Potassium3.8.Ua06/17/2019[place] [phone] AppearanceHAZYUa Bacteria1+Ua BilirubinNEGUa BloodNEGUa Color YELLOWUa Epithelial Cells QL2-5Ua GlucoseNEGUa KetonesNEGUa LeukoNEGUa Nitrite NEGUa PH Test Strip6.0Ua ProteinTRACEUa Specific Gravity1.025Ua Urobilinogen NORMALUa WBC0-2.Urine Protein/Creat. Yghqti6606/17/2019[place], [place] [phone].Urine Protein Ehfhmk72.Urine Creatinine Hpbjbp646.2.Urine Prot/Creat Ratio0.08.Dvodppqil77/13/2019[place] [phone].Magnesium2.3.Hemoglobin And Tzrvbuvhgy68/13/2019[place], [place] [phone].Hemoglobin Blood12.1.Iyahnxtlez39.4.Renal Panel -LC04/14/2018 [place], [place] [phone].Albumin3.7.Calcium8.9.Carbon Osbmegt48.Ofjrrddp531.Creatinine-LC 1.28.Phosphorus3.6.Ywtgdf696.BUN19.GFR-FN14Bcxn79.Potassium4.1.Urine Protein/Creat. Xmwvfa4804/14/2018[place] [phone].Urine Protein Random7.Urine Creatinine Hafhbc719.7.Urine Prot/Creat Ratio0.07.CBC W/Xatrkklgjlcl96/11/2018[place], [place] [phone].White Blood Count8.6.Red Blood Count4.40.Hemoglobin Blood13.3 .Pxiuexzskd58.4MCH (Corpuscular Hemoglobin)30.2MCHC (Corpuscular Hemog Conc)33.7 RDW15.6.Platelet Count Xrkcd241Ceuizboiuhj07Cmxnn Buotkrwgcld04Gqfodmbja1Cjqkw Body Adcekqfzzov1Cnfdslmsb %1Absolute Basophils0.10Absolute Eosinophils0.20 Absolute Lymphocytes2.70Absolute Monocytes0.50.Ipth04/14/2018[place], [place] [phone].Ipth63.88Zofg5111/18/2017[facility], Abdomen, W/ ContrastSEE VOYJEQHpoo96/14/2018[facility], Abdomen, W/ ContrastCORTICAL CYST L KIDY.Urinalysis-Ezmlupm5211/17/2017 [facility] [phone] UrineNO SIGNIFICANT H.Urinalysis-Gwtrjkz9711/17/2017[facility] [phone] Specific Gravity1.014Ua PH Test Strip6.0Ua ColorYELLOWUa AppearanceHAZYUa WBC6Ua ProteinNEGUa GlucoseNEGUa KetonesNEGUa BilirubinNEGUa Urobilinogen<2.0Ua NitriteNEGUa Occult BloodMOD.CMP11/17/2017[facility] [phone].Albumin3.1.Alt18.Calcium8.6.Carbon Glapbop99.Rhkvnjpm283 .Creatinine-LC1.13.Glucose Djufm626.Alkaline Phos78.Potassium3.7.Protein-Total 6.8.Fduaqe243.Ast7.BUN17.GFR Udqyweikh18Magj42.Urine Prot/Creat Ratio02/17/2017 [place], [place] [phone] Prot/Creat Ratio0.07Miscellaneous Other02/17/2017[place], [place] [phone] Test - Put Test In Ordercompleted.Renal Panel -LC02/17/2017 [place] [phone].Albumin4.1.Calcium9.4.Carbon Ukyutgf41.Pjxxyqju885.Creatinine-LC 1.31.Phosphorus3.4.Iihxvo792.BUN21.GFR-GW45Gekw53.Potassium4.1.BMP W/Egfr-LC 08/07/2016[facility] [phone].Vefqtz932.Potassium4.3.Msulevjw906.Carbon Godzvxp58.Calcium9.5 .Glucose Nrjuq997.GFR-CG67Jfsl44.Creatinine-LC1.17.BUN16.Hemoglobin A1c-LC 08/07/2016[facility] [phone].Hemoglobin B0j-BG1.1.Lipid Panel08/07/2016[facility] [phone].Vnkndcwjtwj760.Cholester/HDL Ratio6.2High Density Aidmspcfwbo95 .LDL/HDL Ratio79.LDL Brqskbovkwa026.Pmwydagpnodtq277.CBC W/O Differential 08/07/2016[facility] [phone].Ctxmmnlpuh12.1.Hemoglobin Blood12.6.Platelet Count Aqluf337.Red Blood Count4.05KFK98.2.White Blood Count7.6MCH (Corpuscular Hemoglobin)29.8MCHC (Corpuscular Hemog Conc)34.1Urine Vcewfph9606/08/2015[place], [place] [phone] Urine Routinesee report.Urinalysis-Rijvdvm6906/08/2015[place], [place] [phone] Specific Gravity1.020Ua PH Test Strip5.0Ua ColoryellowUa AppearanceclearUa ProteinnegativeUa GlucosenegativeUa BilirubinnegativeUa UrobilinogennormalUa Nitritenegative.Urine Protein/Creat. Dfgzlp3306/08/2015[place] [phone].Urine Protein Fihatl43.Urine Creatinine Bnxejc672.4.Urine Prot/Creat Ratio0.05.Renal Panel06/08/2015[place], [place] [phone].Albumin4.0.Calcium8.9.Carbon Ozwjnvv63.Uohmatmn287.Creatinine-LC 1.29.Phosphorus3.0.Potassium3.6.Xscsrr786.BUN14.GFR-PV32Dslm15.Hemoglobin And Pdbfdcbgju49/04/2015[place], [place] [phone].Hemoglobin Blood12.8.Dlrghwjtzu58.2.Ua12/29/2014[place] [phone] AppearanceclearUa BilirubinnegativeUa BloodtraceUa Coloryellow Ua Epithelial Cells QL2 to 5Ua GlucosenegativeUa LeukonegativeUa Nitritenegative Ua PH Test Strip5.0Ua ProteinnegativeUa RBC0 to 2Ua Specific Gravity1.020Ua Urobilinogennormal.Renal Panel12/29/2014[place], [place] [phone].Albumin4.1.Calcium9.7.Carbon Cjosxns43.Mdqlsqui378.Creatinine-LC 1.50.Phosphorus4.2.Potassium4.1.Lnksnm050.BUN18.GFR-NJ25Jjdg11.Urine Protein/Creat. Nigyff7812/29/2014[place] [phone].Urine Protein Random6.Urine Creatinine Pttuto307.0.Urine Prot/Creat Ratio0.05.Renal Panel12/06/2014[place] [phone].Albumin4.0.Calcium9.2.Carbon Iuzqdsf99.Grdcuuiy743.Creatinine-LC 1.32.Phosphorus3.0.Potassium4.3.Avmizz492.BUN17.GFR-FW68Ooyh42.Urine Protein/Creat. Yibnmk2312/06/2014[place] [phone].Urine Protein Random7.Urine Creatinine Bbguzm119.8.Urine Prot/Creat Ratio0.04.Ua12/06/2014[place] [phone] AppearanceclearUa Bacteria1+Ua BilirubinnegativeUa BloodtraceUa ColoryellowUa Epithelial Cells QL2 to 5Ua GlucosenegativeUa LeukonegativeUa NitritenegativeUa PH Test Strip6.0Ua ProteinnegativeUa RBC2 to 5Ua Specific Gravity1.020Ua Urobilinogennormal.Complement C306/13/2014[place], [place] [phone].Complement C3140.Uzcurfvcf57/09/2014[place] [phone].Magnesium2.3.Kvckgdj4106/13/2014[place] [phone].Calcium9.1.Oniacoxacm25/09/2014[place] [phone].Phosphorus3.8.Urine Protein 24HR06/13/2014[place] [phone].Urine Protein Total 24H63.Urinalysis-Vgtabin5506/13/2014[place] [phone] Specific Gravity1.015Ua PH Test Strip6.0Ua ColorYELLOWUa AppearanceCLEARUa ProteinNEGATIVEUa GlucoseNEGATIVEUa BilirubinNEGATIIVEUa UrobilinogenNORMALUa NitriteNEGATIVE.V Ipth-Vitamin D006/13/2014[place] [phone].Ipth49.31.Vitamin D, 25 Pbboowj87.9.Anca Panel-LC06/13/2014[place], [place] [phone].Anca-C30.Anca-P7.Urine Protein Elect Ran06/13/2014[place] [phone] InterpretationNORMAL.GBM Antibody-LC06/13/2014[place] [phone].Uylk-LAU-PJ2.Complement Total (CH50)06/13/2014[place] [phone].Complement Total (CH50)115.Complement C406/13/2014[place] [phone].Complement C429.Ipth06/13/2014[place] [phone].Ipth49.31.Lipid Panel06/13/2014[place] [phone].Ggmhbfugwyz98.Cholester/HDL Ratio5.6High Density Ksvcnjzkghu78 .LDL/HDL Ratio58.LDL Qktlalryhcq217.Xdlyjqzbrglzo158.Immunofixation-Urine 06/13/2014[place] [phone].Immunofixation-UrineNEGATIVE.Vitamin D, 25 Yhkeygl3206/13/2014[place] [phone].Vitamin D, 25 Ihoqtjq72.9.Cqcawoziigxn19/09/2014[place], [place] [phone].Cryoglobulin0.Hepatitis B-Surface Desrszq6306/13/2014[place] [phone].Hepatitis B-Surface AntigenNON REACTIVE.Hepatitis C006/13/2014 [place] [phone].Hepatitis CNON REACTIVE.Immunofixation-Serum06/13/2014[place] [phone].Immunofixation-SerumNEGATIVE.Hemoglobin And Unjcyrifdw15/09/2014 [place] [phone].Hemoglobin Blood13.0.Mwnxawiskr57.9.Urine Eosinophils Random 06/13/2014[place] [phone].Urine Eosinophils RandomNONE SEEN.BUN06/13/2014[place], [place] [phone].BUN18.Creatinine-LC06/13/2014[place] [phone].Creatinine-LC1.27.GFR-LC06/13/2014[place] [phone].GFR-CK07Shck98.Lhqloi5306/13/2014[place] [phone].Vfrrfy137.Gfejffybn94/09/2014[place] [phone].Potassium4.4.Tsxfacqw28/09/2014[place] [phone].Mmabqrak863.Carbon Efpccad5506/13/2014[place] [phone].Carbon Undzhhw22.Renal Panel05/30/2014[facility] [phone].Albumin3.9.Calcium9.3.Carbon Wuqeceh50.Xrhcxprz783.Creatinine-LC 1.41.Potassium3.6.Kusgfq003.BUN16.GFR-BI62Goeq49.GFR Osclqzmj44Fjao72 .GFR Hnpreorpo57Pveu33.Urinalysis-Uwdvpms4505/30/2014[facility] [phone] Specific Gravity1.030Ua PH Test Strip5.0Ua ColoryellowUa AppearancehazyUa ProteinnegativeUa GlucosenegativeUa KetonesnegativeUa Bilirubin negativeUa UrobilinogennormalUa Nitritenegative.Renal Panel05/22/2014[facility] [phone].Albumin4.1.Calcium9.1.Carbon Nrlfdxj64.Moqzfqsw697.Creatinine-LC 1.45.Potassium3.8.Jbshyp302.BUN19.GFR-ZG61Rnwv50.GFR Xnsxqkrn31Yvle55 .GFR Wqnztsyit08Gcex40.Renal Panel01/13/2014[facility] [phone].Albumin4.1.Calcium9.3.Carbon Yygoyve04.Xoymsrms196.Creatinine-LC 1.26.Potassium4.1.Ovkvzz198.BUN19.GFR-OI12Qsyk32.GFR Wfbaltbt67Huax73 .GFR Cpthfnxok47Eepv47 Encounters Type Date Location Provider Dx Diagnosis Office Visit 06/14/2025 2:20p [facility] Heather Forbes M.D. N11.9 Chronic tubulo-interstitial nephritis, unspecified N18.31 Chronic kidney disea se, stage 3a Office Visit 05/13/2024 1:00p [facility] SHUKRI Sebastian N11.9 Chronic tubulo-interstitial nephritis, unspecified N18.31 Chronic kidney disea se, stage 3a Office Visit 05/18/2023 11:00a [facility] Jerica Stokes N11.9 Chronic tubulo-interstitial nephritis, unspecified N18.31 Chronic kidney disea se, stage 3a D50.9 Iron deficiency anem ia, unspecified E55.9 Vitamin D deficiency , unspecified Office Visit 05/23/2022 11:00a [facility] Jerica Stokes N11.9 Chronic tubulo-interstitial nephritis, unspecified N18.31 Chronic kidney disea se, stage 3a D50.9 Iron deficiency anem ia, unspecified E55.9 Vitamin D deficiency , unspecified Office Visit 05/22/2021 1:30p [facility] Tequila Giles NP N11.9 Chronic tubulo-interstitial nephritis, unspecified N18.30 Chronic kidney disea se, stage 3 unspecified Office Visit 06/08/2020 11:20a [facility] Heather Forbes M.D. N11.9 Chronic tubulo-interstitial nephritis, unspecified N18.3 Chronic kidney disea se, stage 3 (moderate) Office Visit 06/22/2019 10:00a [facility] Heather Forbes M.D. N11.9 Chronic tubulo-interstitial nephritis, unspecified N18.3 Chronic kidney disea se, stage 3 (moderate) Office Visit 05/04/2018 10:20a [facility] Heather Forbes M.D. N11.9 Chronic tubulo-interstitial nephritis, unspecified N18.3 Chronic kidney disea se, stage 3 (moderate) Office Visit 03/13/2017 2:00p [facility] Heather Forbes M.D. N11.9 Chronic tubulo-interstitial [...] Reflux Office Visit 06/09/2014 1:00p [facility] Mathues ngo 585.3 Chronic Kidney Disease Stage 3 [...] 05/18/2023 N11.9 Chronic tubulo-i nterstitial nephritis, unspecified [place], Jerica 05/18/2023 N18.31 Chronic kidney disease, stag e 3a [place], Jerica 05/18/2023 D50.9 Iron deficiency anemia, unsp ecified [place], Jerica 05/18/2023 E55.9 Vitamin D deficiency, unspec ified Kike, Jerica 05/23/2022 N11.9 Chronic tubulo-i nterstitial nephritis, unspecified [place], Jerica 05/23/2022 N18.31 Chronic kidney disease, stag e 3a Kike, Jerica 05/23/2022 D50.9 Iron deficiency anemia, unsp ecified [place], Jerica 05/23/2022 E55.9 Vitamin D deficiency, unspec ified Kike, Jerica 05/22/2021 N11.9 Chronic tubulo-i nterstitial nephritis, unspecified Heather Heidyna M.D. 05/22/2021 N11.9 Chronic tubulo-i nterstitial nephritis, unspecified Tequila Giles NP 05/22/2021 N18.30 Chronic kidney disease, stag e 3 unspecified Heather Benjaminadana M.D. 05/22/2021 N18.30 Chronic kidney disease, stag e 3 unspecified Tequila Giles, LENDING ACTIVITIES SUPERVISOR 06/08/2020 N11.9 Chronic tubulo-i nterstitial nephritis, unspecified [...] Chronic Kidney Disease Stage 3 Cheryl Palomo, FOOD SERVICE ASSOCIATE 12/15/2014 582.89 Interstitial Nephritis Cheryl Palomo, FOOD SERVICE ASSOCIATE 12/15/2014 V58.64 [facility] (Curren t)Use Of Non-Steroid Antiinflammatories Cheryl Palomo, FOOD SERVICE ASSOCIATE 12/15/2014 530.81 Esophageal Reflux Cheryl liang, FOOD SERVICE ASSOCIATE 07/07/2014 585.3 Chronic Kidney Disease Stage 3 Heather Kamadana M.D. 07/07/2014 582.89 Interstitial Nephritis Swapn a Kamadana M.D. 07/07/2014 V58.64 [facility] (Curren t)Use Of Non-Steroid Antiinflammatories Heather Kamadana M.D. 07/07/2014 530.81 Esophageal Reflux Heather stevens M.D. 06/09/2014 585.3 Chronic Kidney Disease Stage 3 Doug Klein M.D. 06/09/2014 582.89 Interstitial Nephritis Kenroy Klein M.D. 06/09/2014 V58.64 [facility] (Curren t)Use Of Non-Steroid Antiinflammatories Doug Klein M.D. 06/09/2014 789.00 Pain Abdominal Unspec Site S yasmin Klein M.D.
--- OUTSIDE RECORDS SUMMARY | 2025-08-29 14:54 | XMS_ITS | Clinical Summary ---
Author Organization [facility] Address [address] [place] [address] Care Team Providers Care Concession Supervisor Name Role Phone Alcides Adam MD Primary Care Provider Allergies Active AllergyReactionsCriticalityNoted DateCommentsChlorhexidineRashLow 03/03/20231869Ggtaflcjax22/25/2024 Made her feel overly thirsty and caused [...] mg) by mouth at bedtime 90 tablet 301/27/207892/27/2026Active Rimegepant Sulfate (Nurtec) 75 MG tablet dispersible Indications:Intractable 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Take 75 mg by mouth See administration instructions Take 1- 75mg tablet by mouth as needed at the onset of migraine. 16 tablet 5Active nortriptyline (Pamelor) 50 MG capsule Indications:Idiopathic progressive [...] BY MOUTH BEFORE BEDTIME 180 capsule 5Active lisdexamfetamine (Vyvanse) 40 MG capsule 5Active pregabalin (Lyrica) 300 MG capsule Indications:Idiopathic progressive polyneuropathy,Non-seasonal allergic rhinitis due to pollenTake 1 capsule (300 mg) by mouth in the morning and 1 capsule (300 mg) before bedtime. 180 capsule Discontinued Active Problems ProblemNoted DateDiagnosed ZlxbMylvuatszmoohq81/04/2025 Assessment & Plan (03/14/2025 5:41 PM EDT): Add alprazolam 0.25 ahs. Orders: ALPRAZolam (Xanax) 0.25 MG tablet; Take 1 tab 30-45 min before PAP therapy nightly Assessment & Plan (12/06/2024 1:26 PM EST): Once machine is received, pt to call for Rx alprazolam 0.25 hs for better tolerance of mask on face. Trochanteric bursitis of both hips08/24/2023olyneuropathy due to type 2 diabetes tshcfxge22/16/2023Obstructive sleep apnea05/20/2023Hypersomnia 05/20/2023 Assessment & Plan (03/14/2025 5:41 PM EDT): Discussed modafinil. May start 100 qam if/when desired., but first optimize PAP use. Cervical paraspinal muscle spasm05/20/2023MRSA (methicillin resistant Staphylococcus aureus) ovyhvittus14/15/2023ain in left foot05/19/2023cute ewymdlikfpy22/04/2023ilateral carpal tunnel rltdyuoy75/04/2023arpal tunnel syndrome of left wrist03/08/2023ervical disc sfrgazlnalsc06/04/2023harcot's joint, left ankle and foot03/08/2023hronic migraine without aura, not intractable, without status sxossarxuzb28/04/2023losed fracture of metatarsal bone03/08/2023losed nondisplaced fracture of second metatarsal bone of left foot03/08/2023losed fracture of navicular bone of foot03/08/2023losed nondisplaced fracture of intermediate cuneiform of left foot03/08/2023 Contracture, left ankle03/08/2023iscitis of thoracic tqmdrs9703/08/2023 Disturbance of skin pnyuwxcjh72/04/2023Elevated C-reactive protein (CRP) 03/08/2023Idiopathic progressive xebutakdgutpod00/04/6646Kkhvujfghmw69/04/2023 Infection of thoracic spine03/08/20232335Zoehnefd28/04/2023Limb pain03/08/2023Lumbar wbbnnzuxnmmlp35/04/2023Lumbosacral spondylosis without hzjkqizlul86/04/2023 Wbgwbehc11/04/7468Gtbpetj77/04/2023Hereditary and idiopathic neuropathy, yokenyoybih71/04/2023rimary osteoarthritis, unspecified ankle and foot 03/08/2023Tarsal tunnel pfwixxxu83/04/2023Type 2 diabetes mellitus with diabetic mghkfjgptctont35/04/2023re-/26/3930Zfrwiw99/25/2022Thyroid nodule 05/27/2022estless legs05/13/2021OSA (obstructive sleep apnea)05/11/2020 Assessment & Plan [...] Orders: Ambulatory referral to Neurology Epidural abscess ([facility])08/20/2018Septic unlhxcguv13/16/2018Abdominal pain 05/04/2018Pure fottsgnymdeldztdi64/31/5870Yiiyplwciucbgx29/31/2018Neoplasm of uncertain behavior of skin02/05/2018Peripheral uwanngkfuu50/27/2018Basal cell carcinoma of skin of face09/16/2017 Overview (03/08/2023): Added automatically from request for surgery [id number] Overview: Added automatically from request for surgery [id number] Mixed /15/2017Carpal tunnel syndrome of right wrist03/05/2017 Vitamin D ivisocleiu97/08/2014GERD (gastroesophageal reflux disease)09/08/2014 Chronic glomerulonephritis with pathological lesion in jfbcxl3006/09/2014Chronic renal impairment, stage 3 (moderate)06/09/2014Thoracic degenerative disc disease 05/09/2014Seasonal iuqhiyyig48/11/2014CRI (chronic renal insufficiency) 10/25/2013Depression with itcfyuq5006/24/20131499Plplouqhxwuzh67/20/2013Fatigue 07/20/2012 Encounters DateTypeDepartmentCare TrnyPfbmqpcrzsc72/20/2025[facility] [address] [place] [phone] Mague Arauz RTLori R 08/23/2025 1:00 PM ESTOffice Visit [facility] [address] [address] Jennie Barajas, WEB PRESS OPERATOR-MELLOWING MACHINE OPERATOR Idiopathic progressive polyneuropathy (Primary Dx); Chronic migraine without aura, not intractable, without status migrainosus; Paresthesia; Bilateral occipital neuralgia; Occipital neuralgia of right side; Stage 3a chronic kidney disease (CMS-HCC); Hypersomnia with sleep apnea; Major depressive disorder, recurrent, mild08/23/2025Telephone [facility] [address] [facility] [address] [place] [address] Gauri Jay MA 08/23/2025amboo flowsheet [facility] [address] [place] [phone] Jennie Barajas, WEB PRESS OPERATOR-MELLOWING MACHINE OPERATOR 08/23/20252912Nljtso33/25/2025Refill [facility] [address] [facility] [address] [place] [address] Janel Allen, PRODUCE TEAM MEMBER Idiopathic progressive polyneuropathy; Non-seasonal allergic rhinitis due to pollenfrom Last 3 Months Family History Medical HistoryRelationNameCommentsHeart [...] ValueDate RecordedSex Assigned at BirthNot on fileLegal SkmOadbgs63/15/2023 7:36 PM EDTGender IdentityNot on fileSexual OrientationNot on file Last Filed Vital Signs Vital SignReadingTime TakenCommentsBlood Nxldbsvo945/8211 1:11 PM EST Ngxcz08413 12:32 PM EDTTemperature--Respiratory Mtgd310410/23/2024 1:11 PM ESTOxygen Mkoyyvrjue16%08/23/2025 1:11 PM ESTInhaled Oxygen Concentration-- Jhvmmd81.3 kg (210 lb)08/23/2025 1:11 PM WRYUnmrql339.5 cm (5' 2 )05/24/2025 11:47 AM EDTBody Mass Index38.4108 11:47 AM EDT Plan of Treatment DateTypeDepartmentCare Team (Latest Contact Info)Fumgdqqooay65/12/2026 2:40 PM ESTOffice Visit [facility] [address] [place] [address] Trace Casas MD [address] [facility] [facility] [address] [place] [address] Insurance Care Teams Team MemberRelationshipSpecialtyStart DateEnd Date Back, MD Alcides [address] [place] [id number] PCP - GeneralFamily Medicine12/08/24
--- OUTSIDE RECORDS SUMMARY | 2025-08-29 14:54 | XMS_ITS | Clinical Summary ---
[facility] Address [address] [place] [address] Care Team Providers Care Bioinformatics Computer Scientist Name Role Phone BackAlcides MD Primary Care Provider [phone] Allergies No known active allergies Medications MedicationSigDispense [...] 08/19/2017Active Active Problems ProblemNoted DateDiagnosed DateBasal cell porwtgxue67/26/2017 Overview (09/29/2017): Added automatically from request for surgery [id number] Basal cell carcinoma of skin of face09/16/2017Neoplasm of uncertain behavior of skin Social History Tobacco UseTypesPacks/DayYears UsedDateSmoking Tobacco: NeverSmokeless Tobacco: NeverAlcohol UseStandard Drinks/WeekCommentsNo0 (1 standard drink = 0.6 oz pure alcohol)CommentsUnknownSex and Gender InformationValueDate RecordedSex Assigned at BirthNot on fileLegal MveFaepnl47/06/2017 7:26 PM ESTGender Identity Jqljuj6206/25/2017 9:30 AM EDTSexual OrientationNot on file Last Filed Vital Signs Vital SignReadingTime TakenCommentsBlood Bheiijig777/78011/24/2017 12:00 PM EST Pcvsz874611/24/2017 12:00 PM ZXVGgrqnendzut77.6 ??C (97.9 ??F)11/24/2017 12:00 PM ESTRespiratory Xsfw771610/09/2017 11:44 AM ESTOxygen Jxmtikymlb39%10/09/2017 11:44 AM ESTInhaled Oxygen Concentration--Mwgqcs377.5 kg (221 lb 8 oz)02/26/2022 2:01 PM GBVTowfoq824.8 cm (5' 2.5 )02/26/2022 2:07 PM EDTBody Mass Index39.87 02/26/2022 2:01 PM EDT Plan of Treatment Health MaintenanceDue DateLast DoneCommentsHEPATITIS C VIRUS CIXZWTKZE1979 HIV SCREENING AZVONBBSLH97/25/1994HEP B VACCINE (1 of 3 - 19+ 3-dose series) 1998CERVICAL CANCER SCREENING CNXXZIRWPB84/25/2000LIPID SCREENING 2019MAMMOGRAM SCREENING QJXWJUNEXP88/25/2019COLORECTAL CANCER SCREENING LZXILPSACB97/25/6923IDZUPZG05COVID-19 VACCINE ( - season)2025INFLUENZA VACCINE (#1)2025TDAP (ADULT)Hevaagbau53/05/2014 PNEUMOCOCCAL VACCINE SERIESAged OutNo longer eligible based on patient's age to complete this topic Insurance Care Teams Team MemberRelationshipSpecialtyStart DateEnd Date Back, MD Alcides [address] [place] [address] PCP - GeneralInternal Vmojngdg76/27/17
--- OUTSIDE RECORDS SUMMARY | 2025-08-29 14:54 | XMS_ITS | Encounter Summary ---
Author Organization [facility] Address [address] [place] [address] Care Team Providers Care Cultural Centre Manager Name Role Phone Alcides Adam MD Primary Care Provider [phone] Encounter Details DateTypeDepartmentCare Team (Latest Contact Info)Dfgopocpmdo71/19/2025Bamboo flowsheet [facility] [address] [facility] [place] [address] Jennie Barajas, DEVONTE-GLUING MACHINE OPERATOR [address] [place] [address] Social History Tobacco UseTypesPacks/DayYears UsedDateSmoking Tobacco: NeverSmokeless Tobacco: NeverAlcohol UseStandard Drinks/WeekCommentsNot Currently0 (1 standard drink = 0.6 oz pure alcohol)1-2 times a yearCommentsUnknownSex and Gender InformationValueDate RecordedSex Assigned at BirthNot on fileLegal SexFemale 12/17/2022 7:36 PM EDTGender IdentityNot on fileSexual OrientationNot on file documented as of this encounter Plan of Treatment DateTypeDepartmentCare Team (Latest Contact Info)Wywmovzaeqk03/12/2026 2:40 PM ESTOffice Visit [facility] [address] [facility] [place] [address] Trace Casas MD [address] [phone] documented as of this encounter Visit Diagnoses Not on filedocumented in this encounter Care Teams Team MemberRelationshipSpecialtyStart DateEnd Date Back, MD Alcides [address] [place] [address] PCP - GeneralFamily Medicine12/08/24documented as of this encounter
--- OUTSIDE RECORDS SUMMARY | 2025-08-29 14:55 | XMS_ITS | Clinical Summary ---
Author Organization [facility] Address [address], [address] [place] [address] Care Team Providers Care Retail Salesperson Name Role Phone Felipe Adam MD Primary Care Provider [phone] Allergies Active AllergyReactionsCriticalityNoted NskvXpymbwdtDucgqanlbc63/25/2024 Made her feel overly thirsty and caused [...] MG tablet Take 1 tablet by mouth tdwzucp1204/19/2022ctive montelukast (SINGULAIR) 10 MG tablet Indications:Seasonal allergiesTAKE [...] MG capsule Take 3 capsules by mouth wqeagmf94/6Active clindamycin (CLEOCIN) 300 MG capsule 5Active dapagliflozin (FARXIGA) 10 MG tablet Indications:Stage 3a chronic kidney disease (HCC),Pre-diabetesTake 1 tablet by mouth every morning 90 tablet 5Active ciprofloxacin (CIPRO) 500 MG tablet 5Active fluconazole (DIFLUCAN) 100 MG tablet Take 1 tablet by mouth daily5Active sulfamethoxazole-trimethoprim (BACTRIM;SEPTRA) 400-80 MG per tablet Take 2 tablets by mouth 2 times dailyActive Active Problems ProblemNoted DateDiagnosed DateChronic qoblhkynidak88/30/2025 Assessment & Plan (08/03/2025 11:31 AM EDT): Controlled on Linzess PRN. Pre-qwnrauiu35/26/2022 Assessment & Plan (08/03/2025 11:31 AM EDT): [...] Hemoglobin A1C; Future Basic Metabolic Panel; Future Rsmkgh8105/29/2022Thyroid hrurmg872Restless legs05/13/2021 Assessment & Plan (08/03/2025 11:31 AM EDT): Controlled on Requip. No change in medication. Assessment & Plan (11/15/2024 3:08 PM EST): Controlled on Requip. No changes at this time. BUCK on CPAP05/11/2020 Assessment & Plan (08/03/2025 11:31 AM EDT): Controlled on CPAP. Assessment & Plan (11/15/2024 3:08 PM EST): Undergoing the process of getting a new machine. Epidural xwzphpo3908/20/2018Septic apzfqcjln25/16/2018Neoplasm of uncertain behavior of skin02/05/2018Peripheral hcpqioxgqf34/27/2018Basal cell carcinoma of skin09/29/2017 Overview (02/05/2018): Overview: Added automatically from request for surgery [id number] Basal cell carcinoma of skin of face09/16/2017Mixed /15/2017 Assessment & Plan (11/15/2024 3:08 PM EST): [...] Future Carpal tunnel syndrome on right03/05/2017Vitamin D jreilaprjd55/08/2014 Assessment & Plan (08/03/2025 11:31 AM EDT): [...] 3 (moderate)06/09/2014Chronic glomerulonephritis with pathological lesion in fwzobb4806/09/2014Thoracic degenerative disc disease 05/09/2014Seasonal phxtrqwul37/11/2014CRI (chronic renal insufficiency) 10/25/2013 Assessment & Plan (08/03/2025 11:31 AM EDT): Follows with Nephrology. Avoid NSAIDS and keep BP well controlled. Assessment & Plan (11/15/2024 3:08 PM EST): Renal function has been stable. Avoid NSAIDS. Follows with Nephrology yearly (Dr. Forbes). Orders: Comprehensive Metabolic Panel; Future Depression with lhyfhxk7206/24/2013 Assessment & Plan (08/03/2025 11:31 AM EDT): Controlled on Zoloft, Pamelor, and Xanax. Follows with Psychiatry every 3 months. Assessment & Plan (11/15/2024 3:08 PM EST): Has been stable on Zoloft. No change in medication. Zxcuxzpczxtdi59/20/2013 Assessment & Plan (11/15/2024 3:08 PM EST): HgbA1C has been normal. Will repeat HgbA1C and Insulin level with next labs. Orders: Hemoglobin A1C; Future Insulin, Total; Future Chronic iqaepen6607/20/20120202Sabstqd63/16/2012Elevated C-reactive protein (CRP)MRSA (methicillin resistant Staphylococcus aureus) septicemiaDiscitis of thoracic regionInfection of thoracic spine Resolved Problems ProblemNoted DateDiagnosed DateResolved JeffVnrvwq94Lactic eblktyhd46Mixed hypercholesterolemia and hypertriglyceridemia Depressioncute metabolic encephalopathy 05/11/2020MRSA /07/2020 Encounters DateTypeDepartmentCare BqdqQcfhyjkujse87/30/2025 11:00 AM EDTOffice Visit [address] [address] Felipe Adam MD Pre-diabetes (Primary Dx); Depression with anxiety; Vitamin D deficiency; Gastroesophageal reflux disease without esophagitis; Chronic renal impairment, stage 3b; BUCK on CPAP; Restless legs; Chronic constipation; Pure obzwlgnaubwipkmyjcoa41/29/2025 11:54 AM EDT - 08/02/2025 11:59 PM EDT Hospital Encounter [facility] Laboratory [address] [place] [address] Stage 3a chronic kidney disease (HCC); Pre-diabetes Discharge Disposition: Home or Self Care07/26/2025Orders Only [address] [phone] Dimitris Stephens MD 07/21/2025 3:25 PM EDT - 07/21/2025 11:59 PM EDTHospital Encounter [facility] [address] [place] [address] Discharge Disposition: Home or Self Care06/29/2025Orders Only [address] [address] Dimitris Stephens MD 06/19/2025Refill [address] [address] Felipe Adam MD Medication Aiyzxh0506/19/2025Orders Only [address] [address] Myah Gao MA Stage 3a chronic kidney disease (HCC); Pre-ezpffgzg69/11/2025bstract [facility] [address] [place] [phone] Felipe Adam MD 06/12/2025 9:56 AM EDT - 06/12/2025 11:59 PM EDTHospital Encounter [facility] [address] [place] [address] Discharge Disposition: Home or Self Carefrom Last 3 Months Immunizations ImmunizationAdministration DatesNext DueTDaP, ADACEL (age 10y-64y), BOOSTRIX (age 10y+), IM, 0.5mL09/08/2014 Family History Medical HistoryRelationNameCommentsCancerMotherGlenna MeadelungDiabetesMother Madyson MeadeHigh Blood PressureMotherGlenna MeadeRelationNameStatusComments MotherGlenna Maurisio Social History Tobacco UseTypesPacks/DayYears UsedDateSmoking Tobacco: NeverPassive Smoke Exposure: NeverSmokeless Tobacco: Never Tobacco Cessation:Counseling Given: Not Answered Alcohol UseStandard Drinks/WeekCommentsNo0 (1 standard drink = 0.6 oz pure alcohol)[facility] UtilitiesAnswerDate RecordedIn the past 12 months has the MDSave, gas, oil, or water Pressable threatened to shut off services in your [...] care, and heating?Somewhat hard 4PHQ-2AnswerDate RecordedPHQ-9 Total Jdfpb264Hunger Vital Sign AnswerDate RecordedWithin the past 12 [...] steady place to sleep or slept in [place] (including now)?No05/08/2024Housing Stability Vital SignAnswerDate RecordedIn the last 12 months, was there a time when you were not able to pay the mortgage or rent on time?No11/15/2024In the past 12 months, how many times have you moved where you were living?t any time in the past 12 months, were you homeless or living in a custodial (including now)?No11/15/2024Food InsecurityAnswerDate RecordedWithin the past 12 months, you worried that your food would run out before you got the money to buymore.Within the past 12 months, the food you bought just didn't last and you didn't have money to get more.1 11/15/2024CommentsNoSex and Gender InformationValueDate RecordedSex Assigned at IhbyzTcxikm71/13/2025 9:45 AM EDTLegal CxwWawjsa89/10/2013 10:13 AM ESTGender VuxblxanNqnntd30/05/2021 8:11 AM ESTSexual OrientationStraight 10/09/2020 8:11 AM ESTOccupationIndustryJob Start DateJob End DateNot on fileNot on fileNot on fileNot on file Last Filed Vital Signs Vital SignReadingTime TakenCommentsBlood Mtdsjttl320/7810 10:52 AM EDT Tosse820008/03/2025 10:52 AM EHIBdqphkyouzx00.2 ??C (99 ??F)04/04/2025 9:15 PM EDT Respiratory Aikl3167 11:15 PM EDTOxygen Vfpyaaclnr09%04/18/2025 9:32 AM EDTInhaled Oxygen Concentration--Xfpxyk77.8 kg (220 lb)08/03/2025 10:52 AM EDT Osjxpr787.4 cm (5')04/04/2025 9:24 PM EDTBody Mass Index42.9704/04/2025 9:24 PM EDT Plan of Treatment Health MaintenanceDue DateLast DoneCommentsHepatitis B vaccine (1 of 3 - 19+ 3- dose series)1998FIT/FOBT: Average risk2024Fecal-DNA (Cologuard): Average risk2024Sigmoidoscopy/CT teworfyemehm97/25/2024TaP/Tdap/Td vaccine (2 - Td or Tdap)Flu vaccine (#1)05/05/2025OVID-19 Vaccine (1 - season)2025Depression Hqxthhfwwr09, 11/15/2024A1C test (Diabetic or Prediabetic), 04/14/2025, 11/14/2024, Additional history existsGFR test (Diabetes, CKD 3-4, OR last GFR 15-59), 07/21/2025, 06/12/2025, Additional history exists Breast cancer ogngou97/8882Xmfgcepmzen65 Colorectal Cancer Unuelp0112/10/20277711Yrtrbn66, 11/14/2024, 11/14/2024, Additional history existsHepatitis C pzatibYpokifqsy96/09/2014 Cervical cancer screenDiscontinuedPap vvlbdPaocfkwmvtxe74/21/2021, 03/20/2017HIV huggmaIesesgoxt95/09/2022Diabetes bpiimzTplyvkdylyol41/29/2025, 04/14/2025, 11/14/2024, Additional history existsHPV (without or [...] complete this topic Procedures Procedure NamePriorityDate/TimeAssociated DiagnosisCommentsHEMOGLOBIN U7PCklgjfb 08/02/2025 11:57 AM EDT Pre-diabetes BASIC METABOLIC JYFWRFhdkgme88/29/2025 11:57 AM EDT Stage 3a chronic kidney disease (HCC) Pre-diabetes X-RAY FOOT 3+WJJjvzzos16/21/2025 4:26 PM EDTSEDIMENTATION VUSLSnozlri45/17/2025 3:37 PM EDT C-REACTIVE AKYYRJWJsumdzj57/17/2025 3:37 PM EDT AIPWdobcnk90/17/2025 3:37 PM EDT BASIC METABOLIC JLXRARajfijw68/17/2025 3:37 PM EDT XR FOOT LIMITED EITJKOPKKGkxrezx00/24/2025 10:53 AM EDTVITAMIN D 25 HYDROXY Pfyokta5106/12/2025 9:59 AM EDT PROTEIN, URINE, YHFPYKUdqepwl46/08/2025 9:59 AM EDT CREATININE, RANDOM IJYPTGomhgxu07/05/2025 9:59 AM EDT RENAL FUNCTION RHBWJGbtvuyx69/08/2025 9:59 AM EDT PTH, IVADJYHzlkavo89/08/2025 9:59 AM EDT LIPID MCYBCMlbskaf24/11/2025 9:54 AM EDT Mixed hyperlipidemia NITA BRIAN DIGITAL SCREEN BRVHNUOTWYcutakn23/14/2025 11:51 AM EDT Encounter for screening mammogram for malignant neoplasm of breast HIV JHOHLXKxpbsvm29/09/2022 2:09 PM EDT Encounter for screening for HIV HM PAP WCIWDNooahct46/21/2021HM POMKTMTPGUXEscciaf50/07/2018HEPATITIS C ANTIBODY Iapbhgx4706/13/2014 8:54 AM EDT from Last 3 Months or Most Recently Relevant to Health Maintenance Results * Hemoglobin A1C (08/02/2025 11:57 AM EDT)ComponentValueRef RangeTest Method Analysis TimePerformed AtPathologist SignatureHemoglobin A1C5.24.0 - 6.0 % 08/02/2025 11:57 AM EDTMERCY LABORATORIESEstimated Avg Imvhkrx791te/dL 08/02/2025 11:57 AM EDTMERCY LABORATORIESComment: The ADA and AACC recommend providing the estimated average glucose result to permit better patient understanding of their HBA1c result. Specimen (Source)Anatomical Location / LateralityCollection Method / Volume Collection TimeReceived TimeBloodBLOOD SPECIMEN / Shgrtiv5208/02/2025 11:57 AM EDT 08/02/2025 11:58 AM EDT Narrative Authorizing ProviderResult TypeResult StatusBilly Back MDCHEMISTRY ORDERABLES Final ResultPerforming OrganizationAddressCity/State/ZIP CodePhone Number [facility] [address] [place] [address], [facility] [phone] [facility] [address] [place] [address], [facility] [phone] * (ABNORMAL) Basic Metabolic Panel (08/02/2025 11:57 AM EDT) Only the most recent of2 resultswithin the time period is included. ComponentValueRef RangeTest MethodAnalysis TimePerformed AtPathologist Signature Nmwani549956 - 144 mmol/L1 11:57 AM [facility] Potassium4.33.7 - 5.3 mmol/L1 11:57 AM [facility] Nuyaqyqq42161 - 107 mmol/L1 11:57 AM [facility] CSZXC64841 - 31 mmol/L1 11:57 AM [facility] LABAnion Gap99 - 17 mmol/L1 11:57 AM [facility] EHGEoclspz9166 - 99 mg/dL 08/02/2025 11:57 AM [facility] VKOBZU130 - 20 mg/dL08/02/2025 11:57 AM [facility] LABCreatinine1.5(H)0.5 - 0.9 mg/dL08/02/2025 11:57 AM [facility] LABEst, Glom Filt Rate43(L)>60 mL/min/1.70x08308/02/2025 11:57 AM [facility] LABComment: ? These results are not intended [...] secretion. Calcium9.78.6 - 10.4 mg/dL08/02/2025 11:57 AM [facility] Specimen (Source)Anatomical Location / LateralityCollection Method / Volume Collection TimeReceived TimeBloodBLOOD SPECIMEN / Zdwwcmx2708/02/2025 11:57 AM EDT 08/02/2025 11:58 AM EDT Narrative Authorizing ProviderResult TypeResult StatusBilly Back MDCHEMISTRY ORDERABLES Final ResultPerforming OrganizationAddressCity/State/ZIP CodePhone Number [facility] [address] [place] [address], [facility] [phone] * X-RAY FOOT 3+VW (07/25/2025 4:26 PM EDT) Narrative Authorizing ProviderResult TypeResult StatusHistorical Provider [facility] Final Result * (ABNORMAL) Sedimentation Rate (07/21/2025 3:37 PM EDT)ComponentValueRef Range Test MethodAnalysis TimePerformed AtPathologist SignatureSed Rate, Mtoxgzifw64 (H)0 - 20 mm/Hr07/21/2025 3:37 PM [facility]OH[facility] BabycareARD LABSpecimen (Source) Anatomical Location / LateralityCollection Method / VolumeCollection Time Received Time07/21/2025 3:37 PM EDT1 3:38 PM EDT Narrative Authorizing ProviderResult TypeResult StatusKimberly Colton PAHEMATOLOGY ORDERABLESFinal ResultPerforming OrganizationAddressCity/State/ZIP CodePhone Number [facility] [address] [place] [address], [facility] [phone] * (ABNORMAL) CBC (07/21/2025 3:37 PM EDT)ComponentValueRef RangeTest Method Analysis TimePerformed AtPathologist SignatureWBC9.93.5 - 11.0 k/uL07/21/2025 3:37 PM EDHENRY COUNTY [facility]PITALGreat Lakes PharmaceuticalsARD LABRBC3.90(L)4.00 - 5.20 m/uL07/21/2025 3:37 PM EDHENRY [facility]ITALGreat Lakes PharmaceuticalsARD QOKMlfcjwkkft06.0(L)12.0 - 16.0 g/dL07/21/2025 3:37 PM EDHENRY COUNTY HOSPITALGreat Lakes PharmaceuticalsARD XSFRcammiukin13.3(L)36.0 - 46.0 %07/21/2025 3:37 PM EDTHE [facility] ULJXNQ97.980.0 - 100.0 fL07/21/2025 3:37 PM EDC[facility] ZVMGGB47.226.0 - 34.0 pg07/21/2025 3:37 PM [facility] RGEVTCS96.131.0 - 37.0 g/dL07/21/2025 3:37 PM [facility] CFHZIF31.1(H)12.1 - 15.2 %07/21/2025 3:37 PM [facility] LAB Xmnjnxktp879746 - 450 k/uL07/21/2025 3:37 PM [facility] LABMPV 11.46.0 - 12.0 fL07/21/2025 3:37 PM [facility] LABSpecimen (Source)Anatomical Location / LateralityCollection Method / VolumeCollection TimeReceived Time07/21/2025 3:37 PM EDT1 3:38 PM EDT Narrative Authorizing ProviderResult TypeResult StatusKimber [place] PAHEMATOLOGY ORDERABLESFinal ResultPerforming OrganizationAddressCity/State/ZIP CodePhone Number [facility] [address] [phone] * (ABNORMAL) C-Reactive Protein (07/21/2025 3:37 PM EDT)ComponentValueRef Range Test MethodAnalysis TimePerformed AtPathologist KakagzrnaEEQ48.1(H)0.0 - 5.0 mg/L1 3:37 PM [facility] LABSpecimen (Source)Anatomical Location / LateralityCollection Method / VolumeCollection TimeReceived Time 07/21/2025 3:37 PM EDT1 3:38 PM EDT Narrative Authorizing ProviderResult TypeResult StatusKimberrubens Colton PACHEMISTRY ORDERABLESFinal ResultPerforming OrganizationAddressty/State/ZIP CodePhone Number [facility] [address] [phone] * XR FOOT LIMITED BILATERAL (06/28/2025 10:53 [...] EDT Narrative Authorizing ProviderResult TypeResult StatusJanel Dorsey EDITOR PRODUCER-CURINE ORDERABLESFinal ResultPerforming OrganizationAddressty/State/ZIP CodePhone Number [facility] [address] [phone] I AM AT [employer] [address] [place] [address] * Creatinine, Random Urine (06/12/2025 9:59 AM EDT)ComponentValueRef RangeTest MethodAnalysis TimePerformed AtPathologist SignatureCreatinine, Ur52.428.0 - 217.0 mg/dL06/12/2025 9:59 AM EDTMERCY LABORATORIESComment:Reference range defined for 1st morning urineSpecimen (Source)Anatomical Location / Laterality Collection Method / VolumeCollection TimeReceived Time06/12/2025 9:59 AM EDT 06/12/2025 10:00 AM EDT Narrative Authorizing ProviderResult TypeResult StatusJanel Dorsey EDITOR PRODUCER-CURINE ORDERABLESFinal ResultPerforming OrganizationAddressty/State/ZIP CodePhone Number [facility] [address] [place] [id number], [facility] [phone] [employer] [address] [place] [address] * (ABNORMAL) Vitamin D 25 Hydroxy (06/12/2025 9:59 AM EDT)ComponentValueRef RangeTest MethodAnalysis TimePerformed AtPathologist SignatureVit D, 25-Xaxrepa01.2(L)30.0 - 100.0 ng/mL06/12/2025 9:59 AM EDTMERCY LABORATORIES Comment: Reference Range: Vitamin D status ? Range Deficiency <20 ng/mL Mild Deficiency ? 20-30 ng/mL Sufficiency ?30-100 ng/mL Toxicity >100 ng/mL Specimen (Source)Anatomical Location / LateralityCollection Method / Volume Collection TimeReceived Time06/12/2025 9:59 AM EDT06/12/2025 10:00 AM EDT Narrative Authorizing ProviderResult TypeResult StatusJanel Dorsey EDITOR PRODUCER-CCHEMISTRY ORDERABLESFinal ResultPerforming OrganizationAddressty/State/ZIP CodePhone Number [facility] [address] [place] [place] [address], [facility] [phone] I AM AT [employer] [address] [place] [address], [facility] [phone] * PTH, Intact (06/12/2025 9:59 AM EDT)ComponentValueRef RangeTest MethodAnalysis TimePerformed AtPathologist SignaturePth Hcltzs37.017.9 - 58.6 pg/mL06/12/2025 9:59 AM EDTMERCY LABORATORIESSpecimen (Source)Anatomical Location / Laterality Collection Method / VolumeCollection TimeReceived Time06/12/2025 9:59 AM EDT 06/12/2025 10:00 AM EDT Narrative Authorizing ProviderResult TypeResult StatusKevindanny Dorsey EDITOR PRODUCER-CCHEMISTRY ORDERABLESFinal ResultPerforming OrganizationAddressty/State/ZIP CodePhone Number [facility] [address] [place] [id number], [facility] [phone] [employer] [address] [place] [address] * (ABNORMAL) Renal Function Panel (06/12/2025 9:59 AM EDT)ComponentValueRef RangeTest MethodAnalysis TimePerformed AtPathologist ZzpchddnfLyyodwr676(H)70 - 99 mg/dL06/12/2025 9:59 AM EDRSB SPINE [place] LPAGIC89(H)6 - 20 mg/dL 06/12/2025 9:59 AM EDFishin' GlueARD LABCreatinine1.3(H)0.5 - 0.9 mg/dL 06/12/2025 9:59 AM [facility] SYDNEE LABEst, Glom Filt Rate51(L)>60 mL/min/1.21e10606/12/2025 9:59 AM [facility] SYDNEE LABComment: ? These results are not [...] secretion. Calcium9.28.6 - 10.4 mg/dL06/12/2025 9:59 AM [facility] [place] LABAlbumin 4.23.5 - 5.2 g/dL06/12/2025 9:59 AM [facility] LABPhosphorus3.92.6 - 4.5 mg/dL06/12/2025 9:59 AM [facility] ANQIzwpja994149 - 144 mmol/L06/12/2025 9:59 AM [facility] LABPotassium4.53.7 - 5.3 mmol/L 06/12/2025 9:59 AM [facility] DBMBnebpzyi1317 - 107 mmol/L 06/12/2025 9:59 AM [facility] OHBQE38838 - 31 mmol/L06/12/2025 9:59 AM [facility] [place] LABAnion Aoc457 - 17 mmol/L06/12/2025 9:59 AM EDT [facility] LABSpecimen (Source)Anatomical Location / Laterality Collection Method / VolumeCollection TimeReceived Time06/12/2025 9:59 AM EDT 06/12/2025 10:00 AM EDT Narrative Authorizing ProviderResult TypeResult StatusJacquedayna Dorsey EDITOR PRODUCER-CCHEMISTRY ORDERABLESFinal ResultPerforming OrganizationAddressCity/State/ZIP CodePhone Number [facility] [address] [place] [address], [facility] [phone] * (ABNORMAL) Lipid Panel (04/14/2025 9:54 AM EDT)ComponentValueRef RangeTest MethodAnalysis TimePerformed AtPathologist SignatureCholesterol, Xvxvc2769 - 199 mg/dL04/14/2025 9:54 AM EDTMERCY LABORATORIESComment: Cholesterol Guidelines: <200 Desirable 200-240 ??Borderline >240 Undesirable HDL31(L)>40 mg/dL04/14/2025 9:54 AM EDTMERCY LABORATORIESComment: HDL Guidelines: <40 Undesirable 40-59 ?Borderline >59 Desirable LDL Ewccatuugaz328 - 100 mg/dL04/14/2025 9:54 AM EDTMERCY LABORATORIESComment: LDL Guidelines: <100 Desirable 100-129 ?? Near to/above Desirable 130-159 ?? Borderline >159 Undesirable Direct (measured) LDL and calculated LDL are not interchangeable tests. Chol/HDL Ratio5.1(H)<5.007 9:54 AM EDTMERCY CVTEMWPCWPSVCqxrnilosdivc016 (H)<150 mg/dL04/14/2025 9:54 AM EDTMERCY LABORATORIESComment: Triglyceride Guidelines: <150 Desirable 150-199 ??Borderline 200-499 ??High >499 Very high Based on AHA Guidelines for fasting triglyceride, July 2012. VLDL68(H)1 - 30 mg/dL04/14/2025 9:54 AM EDTMERCY LABORATORIESSpecimen (Source) Anatomical Location / LateralityCollection Method / VolumeCollection Time Received TimeBloodBLOOD SPECIMEN / Omsymzk8804/14/2025 9:54 AM EDT04/14/2025 9:55 AM EDT Narrative Authorizing ProviderResult TypeResult StatusBilly Back MDCHEMISTRY ORDERABLES Final ResultPerforming OrganizationAddressCity/State/ZIP CodePhone Number [facility] [address] [place] [address], [facility] [phone] [facility] [address] [place] [address], [facility] [phone] * NITA BRIAN DIGITAL SCREEN BILATERAL (02/15/2025 11:51 AM EDT)Anatomical Region LateralityModalityBreastBilateralMammographySpecimen (Source)Anatomical Location / LateralityCollection Method / VolumeCollection TimeReceived Time 02/15/2025 11:51 AM EDT Impressions 02/28/2025 12:55 PM EDT OVERALL ASSESSMENT: BIRADS: 1 Negative, no evidence of malignancy. A letter of notification will be mailed to the patient. Performing Facility: [facility] [address] [place], [place] [address] Narrative 02/28/2025 12:55 PM EDT HISTORY: Screening. [...] PM EDT)ComponentValueRef RangeTest MethodAnalysis TimePerformed AtPathologist SignatureHIV Ag/ZoTQBRRISVTWBMZQFSHZWNRN62/09/2022 2:09 PM EDTMERCY LABORATORIESComment: No laboratory evidence of HIV infection. ??If acute HIV infection is suspected, consider testing for HIV-1 RNA. Specimen (Source)Anatomical Location / LateralityCollection Method / Volume Collection TimeReceived TimeBLOOD SPECIMEN / Dnpfntb2504/12/2022 2:09 PM EDT 04/12/2022 2:11 PM EDT Narrative Authorizing ProviderResult TypeResult StatusBilly Back MDIMMUNOLOGY ORDERABLES Final ResultPerforming OrganizationAddressCity/State/ZIP CodePhone Number [facility] [address] [place] [address], [facility] [phone] [facility] [employer] [address] [place] [address], [facility] [phone] * HM PAP SMEAR (09/24/2021) Narrative Authorizing [...] ordering HCV RNA by PCR. Performed at [address] [address] ([phone] Specimen (Source)Anatomical Location / LateralityCollection Method / Volume Collection TimeReceived Time06/13/2014 8:54 AM EDT06/13/2014 8:55 AM EDT Narrative Authorizing ProviderResult TypeResult StatusSuog Klein MDIMMUNOLOGY ORDERABLESFinal ResultPerforming OrganizationAddressCity/State/ZIP CodePhone Number [facility] [address] [facility] [place] [address], [facility] [phone] [facility] from Last 3 Months or Most Recently Relevant to Health Maintenance Additional Health Concerns InfectionOnset DateLast IndicatedMRSA Comment:Blood and spine 05/16/2016MDRO (multi-drug resistant organism) Comment:E. Coli urine 05/02/2022/ Insurance Advance Directives * Full Code (Latest Code Status on File) Date ActivatedDate CbgkdnddyxmIaxehrqd45/11/2018 4:17 PM08/25/2018 8:55 PM * Full Code Date ActivatedDate InactivatedComments03/19/2017 1:37 PM03/19/2017 4:32 PM * Full Code Date ActivatedDate InactivatedComments03/19/2017 10:57 AM03/19/2017 1:37 PM * Full Code Date ActivatedDate InactivatedComments03/05/2017 12:56 PM03/05/2017 3:55 PM * Full Code Date ActivatedDate InactivatedComments03/05/2017 10:05 AM03/05/2017 12:56 PM Care Teams Team MemberRelationshipSpecialtyStart DateEnd Date Felipe Adam MD [address] [place] [id number] PCP - GeneralInternal Medicine11/14/11
--- OUTSIDE RECORDS SUMMARY | 2025-08-29 14:55 | XMS_ITS | Patient Health Record ---
Author Organization [facility] in [place] Address [address] [place] [address] Care Team Providers Care Coat Joiner Name Role Phone None, Unknown or Primary Care Provider Unavailab Frances Plascencia [phone] Allergies Allergen (clinical drug ingredient) Drug/Non Drug Allergy documented on EMR Reaction Allergy Type Onset Date Status ChloraPrep One StepUnknownDrug AllergyActive Results Component Value Reference Range Notes XR foot LT min 3V (Not yet r eviewed by provider) Interpretation: Performing Lab: Notes/Report: Source Facility: [place] [address] XRay Report Signed Patient: CELINA GASPAR MR#: [id number] : 1980 Acct:[id number] Age/Sex: 44 / F ADM Date: 11/01/24 Loc: RAD Attending Dr: Frances Chase D.P.M. Ordering Physician: Frances Chase D.P.M. Date of Service: 11/01/24 Procedure(s): XR foot LT min 3V Accession Number(s): [id number] cc: Frances Chase D.P.M.; Physician,Non-Staff [place] [address] Patient Name: CELINA GASPAR MRN: [id number] date: 1980 Sex: F Assigned Patient Location: RAD Current Patient Location: Accession/Order Number: [id number] Exam Date: 11/01/2024 10:45 Report Date: 11/02/2024 [...] Signed By: 11/02/24 1312 DD/ 1309 TD/TT: Retail Asset Protection Specialist: JESSICA (Not yet reviewed by provider) Interpretation: Performing Lab:[facility], [address], [place] [id number] PH:[phone] Notes/Report: Morphology MODERATE ANISOCYTOSIS CBC (COMPLETE BLOOD COUNT) * (Not yet reviewed by provider) Interpretation: Performing Lab:[facility], [address], [place] [address] PH:[phone] Notes/Report:WBC Count9.93.5-11.0 k/uLRBC Count3.904.00-5.20 m/iLUvvliidkqp25.0 12.0-16.0 g/cUTkbwgswuct61.336.0-46.0 %MCV87.980.0-100.0 fLMCH28.226.0-34.0 pg MCHC32.131.0-37.0 g/dLRDW17.112.1-15.2 %Platelet Gdaob106407-019 k/uLMPV11.46.0- 12.0 fLCRP (Not yet reviewed by provider) Interpretation: Performing Lab:[facility], [address] [place] [address] PH:[phone] Notes/Report:C-Reactive Dqjswlt79.10.0-5.0 mg/LESR (Not yet reviewed by provider) Interpretation: Performing Lab:[facility], [address] [place] [address] PH:[phone] Notes/Report:Sedimentation Ryev732-11 mm/HrBASIC METABOLIC PANL (Not yet reviewed by provider) Interpretation: Performing Lab:[facility], [address] [place] [address] PH:[phone] Notes/Report:NA (Sodium)399847-341 mmol/LK (Potassium)4.43.7-5.3 mmol/LChloride 55148-792 mmol/QVW67671-23 mmol/LAnion Bws16-20 mmol/WOxtyfpe0435-42 mg/dLBUN (Urea N)196-20 mg/dLCreatinine1.40.5-0.9 mg/eAgJWJ40>60 mL/min/1.73m2 extra-renal metabolism of creatine, excessive creatine [...] a race factor using the 2020 CKD-EPI Vcqmyhe60.18.6-10.4 mg/dLBASIC METABOLIC PANL (Not yet reviewed by provider) Interpretation: Performing Lab:[facility], [address] [place] [address] PH:[phone] Notes/Report:NA (Sodium)571346-384 mmol/LK (Potassium)4.43.7-5.3 mmol/LChloride 79887-623 mmol/KCA63800-26 mmol/LAnion Jfy544-95 mmol/HXqrblon69022-52 mg/dLBUN (Urea N)176-20 mg/dLCreatinine1.30.5-0.9 mg/uJaZDC92>60 mL/min/1.73m2 extra-renal metabolism of creatine, excessive creatine [...] patients <18 years of age. equation. Calcium9.38.6-10.4 mg/dLESR (Not yet reviewed by provider) Interpretation: Performing Lab:[facility], [address] [place] [address] PH:[phone] Notes/Report:Sedimentation Gllt427-07 mm/HrCRP (Not yet reviewed by provider) Interpretation: Performing Lab:[facility], [address] [place] [address] PH:[phone] Notes/Report:C-Reactive Protein6.20.0-5.0 mg/LCBC (COMPLETE BLOOD COUNT) * (Not yet reviewed by provider) Interpretation: Performing Lab:[facility], [address] [place] [address] PH:[phone] Notes/Report:WBC Count3.83.5-11.0 k/uLRBC Count3.544.00-5.20 m/uLHemoglobin9.9 12.0-16.0 g/eSLyfooeznyw64.336.0-46.0 %MCV91.280.0-100.0 fLMCH28.026.0-34.0 pg MCHC30.731.0-37.0 g/dLRDW19.412.1-15.2 %Platelet Lfwii146312-955 k/uLMPV11.76.0- 12.0 fLXR foot LT min 3V (Not yet reviewed by provider) Interpretation: Performing Lab: Notes/Report: Source Facility: [facility] [place] [address] [place] [address] XRay Report Signed Patient: CELINA GASPAR MR#: [id number] : 1980 Acct:[id number] Age/Sex: 44 / F ADM Date: 11/18/24 Loc: EC Attending Dr: Frances Chase D.P.M. Ordering Physician: Frances Chase D.P.M. Date of Service: 11/18/24 Procedure(s): XR foot LT min 3V Accession Number(s): [id number] cc: Frances Chase D.P.M.; Physician,Non-Staff [place] [address] Patient Name: CELINA GASPAR MRN: [facility]:[id number] date: 1980 Sex: F Assigned Patient Location: Current Patient Location: Accession/Order Number: [id number] Exam Date: 11/18/2024 10:55 Report Date: 11/18/2024 [...] Signed By: 11/18/24 1346 DD/ 1344 TD/TT: Retail Asset Protection Specialist:XR foot LT min 3V (Not yet reviewed by provider) Interpretation: Performing Lab: Notes/Report: Source Facility: [facility] [place] [address] [place] [address] XRay Report Signed Patient: CELINA GASPAR MR#: [id number] : 1980 Acct:[id number] Age/Sex: 44 / F ADM Date: 09/20/24 Loc: RAD Attending Dr: Frances Chase D.P.M. Ordering Physician: Frances Chase D.P.M. Date of Service: 09/20/24 Procedure(s): XR foot LT min 3V Accession Number(s): [id number] cc: Frances Chase D.P.M.; Physician,Non-Staff [place] [address] Patient Name: CELINA GASPAR MRN: [facility]:[id number] date: 1980 Sex: F Assigned Patient Location: [facility] Current Patient Location: Accession/Order Number: [id number] Exam Date: 09/20/2024 10:45 Report Date: 09/21/2024 [...] Hinson M.D. Signed By: 09/21/2459 DD/ TD/TT: Retail Asset Protection Specialist: Reason For Referral Reason Referral to [facility] Diagnosis 1 Charcot's joint, lef t ankle and foot (M14.672) Referral Organization [facility] (PODIATRY) Referring Provider First Name Frances Referring [...] Vital Signs Heart Rate 88 /min 11/18/2024 Qoxvewfbnew47.2 degrees Qtbanldvgq50/14/1050Vrehzbea58 %11/18/20245926Wkcxro87 in 11/18/20246368Tqzwop214 lbs11/18/2024BMI36.58 kg/m211/18/2024 Encounters Encounter Location Date Provider Diagnosis [facility] (POD[facility]ATRY) [address] [place] [address] [place] [address] 09/20/2024 Frances Chase Pseudarthrosis after fusion or arthrodesis M96.0 ; Charcot's joint, left ankle and foot M14.672 ; Hereditary and idiopathic neuropathy, 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 and Pain in left foot M79.672 [facility] (PODIATRY) [address] [place] [address] [place] [address] 11/01/2024 Peter Eberander Charcot's joint, lef t ankle and foot M14.672 ; Pseudarthrosis after fusion or arthrodesis M96.0 and Pain in left foot M79.672 [facility] (PODIATRY) [address] [place] [address] [place] [address] 11/18/2024 Frances Velázquezjoanie Pseudarthrosis after fusion or arthrodesis M96.0 ; Charcot's joint, left ankle and foot M14.672 and Pain in left foot M79.672 Assessments Encounter Date Diagnosis (ICD Code) Assessment Notes Treatment Notes Treatment Clinical Notes Section Notes 09/20/2024 Charcot's joint, left ankle and foot (ICD-10 - M14.672) 09/20/2024seudarthrosis after fusion or arthrodesis (ICD-10 - M96.0)Patient [...] I would like weightbearing foot x-rays at follow-up11/01/2024 Charcot's joint, left ankle and foot (ICD-10 [...] follow-up in a month with weightbearing foot x-rays11/01/2024 Pseudarthrosis after fusion or arthrodesis (ICD-10 - M96.0)11/18/2024harcot's joint, left ankle and foot (ICD-10 - M14.672)11/18/2024Pseudarthrosis after fusion or arthrodesis (ICD-10 - M96.0)Patient is now over 9 months from medial column and subtalar joint fusion performed for midfoot Charcot reconstruction. 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 A bone stimulator was prescribed and she [...] will follow-up in 2 months with foot x-rays11/18/2024Pain in left foot (ICD-10 - M79.672)11/01/2024Pain in left foot (ICD-10 - M79.672)09/20/2024Hereditary and idiopathic neuropathy, unspecified (ICD-10 - G60.9)4Pain [...] Insured Coverage Start Date Coverage End Date [facility] [address] [place], [place] [id number] Celina Gaspar Self - patient is the [...]
--- OUTSIDE RECORDS SUMMARY | 2025-08-29 15:02 | XMS_ITS | CCD ---
Author Organization [facility] Care Team Providers Care Repeat Chief Name Role Phone Back, Felipe Unavailable [...] Care Unavailable Back, Felipe Primary Care Provider [phone] Back, Felipe Primary Care Provider Back, Felipe [...] HARRIS Admitting Unavailable FRANCES HARRIS Attending Unavailable [facility], DR PIPER Ackerman Consulting Unavailable HIGHLFRANCES HERNANDEZ Consulting Unavailable FRANCES HARRIS Admitting Unavailable FRANCES HARRIS Attending Unavailable [place], DR EMILY Riojas Consulting Unavailable FRANCES HARRIS Consulting Unavailable Back , Felipe Primary Care Provider [phone] BACK, FELIPE Primary Care Unavailable ROBBIN SHOOK II Attending Un available Back , Felipe Primary Care Provider [phone] INDER Harris Attending Provider Frances Harris Attending Unavailable Frances Harris Admitting Unavailable Unavailable Primary Care Provider Unavailabl e BACK, FELIPE Referring Unavailable BACK, FELIPE Primary Care Unavailable BACK, FELIPE Admitting Unavailable DIMAS ADAIR Attending Unavailable Back , Bill Primary Care Provider [phone] FOZIA MENG Attending Unavailable LYNN BLOCK Attending [...] of OnsetReaction(s) Facility (20 sources)Chlorhexidine; Translations: [CHLORHEXIDINE]Drug Doihcvz15-02-3640 [facility] (13 sources)topiramate; Translations: [TOPIRAMATE]Drug Vmublho39-76-1246Vfvft (See Comments)[facility] (20 sources)TopiramatePropensity to adverse gieowrwdi94-95-5382[facility] (1 source)Chlorhexidine; Translations: [Chlorhexidine Gluconate]Drug Allergy [facility] Medications Current Medications MedicationDrug Class(es)DatesSig (Normalized)Sig (Original)acetaminophen 325 mg / HYDROcodone bitartrate 5 mg oral tablet (10 sources)Opioid AgonistStart: 93-42-8452EZWPWrkexpn-acetaminophen (NORCO) 5- 325 MG per tablettake 1 tablet by mouth every eight hours as neededhydroCODone- acetaminophen 5-325 MG Tab tablet take 1 tablet by mouth every 8 hours as needed. ActiveALPRAZolam 0.25 mg oral tablet (20 sources)BenzodiazepineStart: 93-08-8577rzpz 1 tablet by mouth once daily ALPRAZolam (XANAX) 0.25 MG tablet Take 1 tablet by mouth nightly. 03/14/2025 Activeamoxicillin 875 mg / clavulanate 125 mg oral tablet (1 source)Penicillin-class AntibacterialStart: 08-08-2020 End: 07-27-6768slvz 1 tablet by mouth twice dailyamoxicillin-clavulanate (AUGMENTIN) 875-125 MG per tablet Indications: Bacterial sinusitis Take 1 tablet by mouth 2 times daily for 7 days 14 tablet 0 08/08/2020 08/15/2020 Qdlneg75 hr amphetamine aspartate 5 mg / amphetamine sulfate 5 mg / dextroamphetamine saccharate 5 mg / dextroamphetamine sulfate 5 mg extended release oral capsule (4 sources)Central Nervous System StimulantStart: 02-25-2023 End: 57-33-2408vovspwyeiweeptdvz-amphetamine (ADDERALL XR) 20 MG 24 hr capsule 02/25/2023 10/11/2024 Discontinued (Patient Discharge)Start: 90-72-0280upvc 1 capsule by mouth once daily in [...] tablet (20 sources)gamma-Aminobutyric Acid-ergic AgonistStart: 12-16-2024 End: 38-70-3950rgjb 2 tablets by mouth at bedtimebaclofen (Lioresal) 10 MG tablet Indications: Cervical paraspinal muscle spasm TAKE 2 TABLETS BY MOUTH AT BEDTIME FOR 30 DAYS 60 tablet 3 05/24/2025 ActiveStart: 72-49-1270arzp 2 tablets by mouth at bedtimebaclofen (Lioresal) 10 MG tablet Indications: Cervical paraspinal muscle spasm TAKE 2 TABLETS BY MOUTH AT BEDTIME FOR 30 DAYS 60 tablet 3 07/12/2024 ActiveStart: 23-33-8365sdwg 1 tablet by mouth once dailybaclofen (LIORESAL) 10 MG tablet Take 1 tablet by mouth nightly 04/19/2022 Activebiotin 1 mg oral tablet (20 sources)Start: 29-78-0622bucm 1 tablet by mouth once dailyBiotin 1000 [...] oral capsule (18 sources)Cephalosporin AntibacterialStart: 08-13-2023 End: 04-84-8088acir 1 capsule by mouth once daily as needed for urinary tract infectioncephALEXin (KEFLEX) 250 MG capsule Indications: Frequent UTI Take 1 capsule by mouth daily as needed (post-coital UTI prophylaxis) 30 capsule 1 08/13/2023 ActiveStart: 18-96-0268kxyh 1 capsule by mouth once daily as needed for urinary tract infectioncephALEXin (KEFLEX) 250 MG capsule Indications: Frequent UTI Take 1 capsule by mouth daily as needed (post-coital UTI prophylaxis) 30 capsule 1 08/07/2022 Activecholecalciferol 0.05 mg oral capsule (20 sources)Vitamin DStart: 84-18-6403jizv 1 capsule by mouth once daily Cholecalciferol (VITAMIN D) 2000 UNITS CAPS capsule Indications: Vitamin D deficiency Take 1 capsule by mouth daily. 30 capsule 12 09/11/2014 Active cholecalciferol (Vitamin D-3) 50 MCG (2000 UT) tablet Take by mouth Active cholecalciferol, vitamin D3, (VITAMIN D3) 2,000 unit Tab Take by mouth. Active clindamycin 300 mg oral capsule (16 sources)Lincosamide AntibacterialStart: 04-04-2025 End: 04-01-9945jrjsrtlicuo (CLEOCIN) 300 MG capsule 04/13/2025 ActiveStart: 12-79-4869tbqrjmuhnea (CLEOCIN) 150 MG capsulecyclobenzaprine hydrochloride 5 mg oral tablet (16 sources)Muscle Relaxanttake 0.5 tablet by mouth once dailycyclobenzaprine (FLEXERIL) 5 MG tablet Take 5 mg by mouth nightly 1/2 tablet every night 0 Activedapagliflozin 10 mg oral tablet (7 sources)Sodium-Glucose Cotransporter 2 InhibitorStart: 10-89-7564zbqk 1 tablet by mouth once daily in the morningdapagliflozin (FARXIGA) 10 MG tablet Indications: Stage 3a chronic kidney disease (HCC) , Pre-diabetes Take 1 tablet by mouth every morning 90 tablet 1 06/19/2025 Zbijad63 hr desvenlafaxine succinate 25 mg extended release oral tablet (1 source)Serotonin and Norepinephrine Reuptake InhibitorStart: 07-29-2021 desvenlafaxine succinate (PRISTIQ) 25 MG TB24 extended release tablet 25 mg daily 0 07/29/2021 Activedextromethorphan hydrobromide 15 mg / guaiFENesin 400 mg / pseudoephedrine hydrochloride 60 mg oraltablet (1 source)alpha-Adrenergic Agonist, Uncompetitive G-cgaeoe-D-aspartate Receptor Antagonist, Sigma-1 AgonistStart: 02-13-2021 End: 72-01-7210cxck 1 tablet by mouth every six hours as needed Cmbfflzzijdeurm-RV-NU (CAPMIST DM) 60-15-400 MG TABS Take 1 tablet by mouth every 6 hours as needed(Sinus pressure) 28 tablet 0 02/13/2021 02/20/2021 Active doxycycline hyclate 100 mg oral capsule (15 sources)Tetracycline-class DrugStart: 09-20-2018 End: 14-43-1201ryxs 1 capsule by mouth twice dailydoxycycline hyclate [...] mg/mg ophthalmic ointment (2 sources)Macrolide, Macrolide AntimicrobialStart: 49-35-5782nfaowrxtptov 5 MG/GM Ointment ophthalmic ointment Apply to eye incisions 2 x a day 1 Tube 0 08/19/2017 Activefamotidine 20 mg oral tablet (20 sources)Histamine-2 Receptor AntagonistStart: 37-79-3712nyyusnapuq (PEPCID) 20 MG tablet Indications: Gastroesophageal reflux disease without esophagitis TA KE 1 TABLET TWICE A DAY 180 tablet 3 04/03/2025 ActiveStart: 19-63-1523fovl 1 tablet by mouth twice dailyfamotidine (PEPCID) 20 MG tablet Indications: Gastroesophageal reflux disease without esophagitis Take 1 tablet by mouth 2 times daily 60 tablet 5 05/26/2023 ActiveStart: 17-79-5144knsb 1 tablet by mouth twice dailyfamotidine (PEPCID) 20 MG tablet Indications: Gastroesophageal reflux disease without esophagitis Take 1 tablet by mouth 2 times daily 60 tablet 3 2022 Activefluconazole 150 mg oral tablet (1 source)Azole AntifungalStart: 24-33-8566emmrbqzynir (DIFLUCAN) 150 MG tablet Indications: Antibiotic-induced yeast infection Take 1 tablet by mouth at first sign of yeast infection and repeat in 72 hours for severe infection. 2 tablet 0 06/06/2021 Activefluticasone propionate 0.05 mg/actuat metered dose nasal spray (20 sources)CorticosteroidStart: 35-56-7895dxyq 2 spray(s) nasal route once dailyfluticasone (FLONASE) 50 MCG/ACT nasal spray Indications: Seasonal allergies USE 2 SPRAYS IN EACH NOSTRIL DAILY 48 g 3 09/22/2022 ActiveStart: 00-61-6206dhqp 2 spray(s) nasal route once dailyfluticasone (Flonase) 50 MCG/ACT nasal spray Administer 2 sprays into each nostril Daily 09/22/2022ctiveStart: 78-85-8437khki 2 spray(s) nasal route in the morningfluticasone (Flonase) 50 MCG/ACT nasal spray Administer 2 sprays into each nostril in the morning. 1 11/23/2021 ActiveStart: 08-26-8685guxt 2 spray(s) nasal route once daily fluticasone [...] 600 mg oral tablet (2 sources)Anti-epileptic AgentStart: 61-40-0862vlwe 1 tablet by mouth twice dailygabapentin 600 [...] mg oral capsule (11 sources)Guanylate Cyclase-C AgonistStart: 14-44-5959zeuf 1 capsule by mouth once dailylinaclotide (LINZESS) 145 MCG capsule Indications: Drug-induced constipation Take 1 capsule by mouth daily 90 capsule 1 05/09/2024 Active lisdexamfetamine dimesylate 40 mg oral capsule (20 sources)Central Nervous System StimulantStart: 65-98-4009TFRREWE 40 MG CAPS Take 50 mg by mouth daily. 03/04/2023 ActiveStart: 69-43-8881SFFCNUN 40 MG CAPS Start: 22-12-4445RALWZPT 40 MG CAPS daily. 0 05/06/2021 ActiveStart: 01-10-2021 VYVANSE 20 MG CAPS End: 15-87-6418hlzu 1 capsule by mouth in the morninglisdexamfetamine (Vyvanse) 50 MG capsule Take 50 mg by mouth in the morning. 09/14/2024 Discontinued (Ineffective)loperamide hydrochloride 2 mg oral capsule (1 source)Opioid AgonistStart: 01-21-2021 End: 56-73-3911bpbc 1 capsule by mouth four times daily as needed for diarrhea loperamide (RA ANTI-DIARRHEAL) 2 MG capsule Indications: Diarrhea in adult patient Take 1 capsule by mouth 4 times daily as needed for Diarrhea 20 capsule 0 01/21/2021 01/26/2021 Activemelatonin 3 mg oral tablet (17 sources) End: 35-61-2074etvjgqxgf 3 mg Tab Take by mouth nightly. 10/11/2024 Discontinued (Patient Discharge)methocarbamol 500 mg oral tablet (2 sources)Muscle RelaxantStart: 65-11-7599kumpggryorrxi (ROBAXIN) 500 MG tablet montelukast 10 mg oral tablet (20 sources)Leukotriene Receptor AntagonistStart: 09-22-2022 End: 15-05-2300gkgyyszxxuo (SINGULAIR) 10 MG tablet Indications: Seasonal allergies TAKE 1 TABLET NIGHTLY 90 tablet 3 09/22/2022 ActiveStart: 04-11-2022 take 1 tablet by mouth once dailymontelukast (SINGULAIR) 10 MG tablet Indications: Seasonal allergies Take 1 tablet by mouth ophqsii29 tablet 1 04/11/2022 ActiveStart: 33-56-5113rgljeauerpp (SINGULAIR) 10 MG tablet nitrofurantoin, macrocrystals 25 mg / nitrofurantoin, monohydrate 75 mg oral capsule (1 source)Nitrofuran AntibacterialStart: 06-11-2021 End: 24-74-5439ozmo 1 capsule by mouth twice dailynitrofurantoin, macrocrystal- monohydrate, (MACROBID) 100 MG capsule Indications: Acute cystitis with hematuria Take 1 capsule by mouth 2 times daily for 5 days 10 capsule 0 06/11/2021 06/16/2021 Activenortriptyline 50 mg oral capsule (20 sources)Tricyclic AntidepressantStart: 02-13-2025 End: 74-59-7399nncs 3 capsules by mouth once dailynortriptyline (PAMELOR) 50 MG capsule Take 3 capsules by mouth nightly 02/13/2025 02/13/2026 ActiveStart: 09-14-2024 End: 63-70-6862qyuo 2 capsules by mouth at bedtimenortriptyline (Pamelor) 50 MG capsule Indications: Idiopathic progressive polyneuropathy , Intractable 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 (CMS/HCC) Take 2 capsules (100 mg) by mouth at bedtime 180 capsule 3 11/02/2024 02/13/2025 Discontinued (Reorder)Start: 06-10-2024 End: 75-90-3866ppxa 2 capsules by mouth at bedtimenortriptyline (Pamelor) 25 MG capsule Indications: Idiopathic progressive polyneuropathy , Bilateral carpal tunnel syndrome , Restless legs , Intractable chronic migraine without aura and with statusmigrainosus (CMS/HCC) Take two capsules by mouth at bedtime. Total of 50 mg. 90 capsule 3 06/10/2024 09/14/2024 Discontinued (Reorder)Start: 11-12-2023 End: 79-43-4378lruw 1 capsule by mouth at bedtimenortriptyline (Pamelor) 25 MG capsule Indications: Idiopathic progressive polyneuropathy , Bilateral carpal tunnel syndrome , Restless legs , Intractable chronic migraine without aura and with statusmigrainosus (CMS/HCC) Take 1 capsule (25 mg) by mouth at bedtime 90 capsule 3 11/12/2023 06/10/2024iscontinued (Reorder)PARoxetine hydrochloride 20 mg oral tablet (5 sources)Serotonin Reuptake InhibitorStart: 77-49-2097dqsa 1 tablet by mouth once dailyparoxetine 20 MG Tab take 20 mg by mouth daily. 06/09/2017 Active phentermine hydrochloride 37.5 mg oral tablet (3 sources)Sympathomimetic Amine AnorecticStart: 05-26-2023 End: 73-33-7728oarc 1 tablet by mouth once daily before breakfastphentermine (ADIPEX-P) 37.5 MG tablet Indications: Class 2 severe obesity due to excess calories with serious comorbidity and body mass index (BMI) of 38.0 to 38.9 in adult ([facility]) Take 1 tablet by mouth every morning (before breakfast) for 30 days. Max Daily Amount: 37.5 mg 30 tablet 0 05/26/2023 06/25/2023 ActiveStart: 05-27-2019 End: 39-57-9528ckkz 40-44.9 capsules by mouth once daily in the morning phentermine (ADIPEX-P) 37.5 MG capsule Indications: Class 3 severe obesity due to excess calories without serious comorbidity with body mass index (BMI) of 40.0 to 44.9 in adult ([facility]) Take 1 capsule by mouth every morning for 30 days. 30 capsule 0 05/27/2019 06/26/2019 ActivepredniSONE 20 mg oral tablet (1 source)Start: 09-16-2020 End: 59-84-3200oaxr 3 tablets by mouth once dailypredniSONE (DELTASONE) 20 MG tablet Take 3 tablets by mouth daily for 5 days 15 tablet 0 Activepregabalin 300 mg oral capsule (20 sources)Start: 73-68-3585blbs 1 capsule by mouth in the morningpregabalin (Lyrica) 300 MG capsule Indications: Idiopathic progressive polyneuropathy , Non-seasonal allergic rhinitis due to pollen TAKE 1 CAPSULE BY MOUTH IN THE MORNING AND 1 CAPSULE BY MOUTH BEFORE BEDTIME 180 capsule 07/31/2025 Active Start: 02-20-2022 End: 97-99-4518pmxk 1 capsule by mouth twice dailypregabalin (LYRICA) 300 MG capsule Take 1 capsule by mouth 2 times daily. 02/20/2022 ActiveStart: 62-28-8022wxsm 1 capsule by mouth three times dailypregabalin (LYRICA) 150 MG capsule Indications: Epidural abscess , Discitis of thoracic region , Infection of thoracic spine (HCC) , Peripheral polyneuropathy Take 1 capsule by mouth 3 times daily for 30 days.. 90 capsule 0 08/25/2018 ActiveraNITIdine 150 mg oral tablet (1 source)Histamine-2 Receptor AntagonistStart: 15-87-1428usex 1 tablet by mouth twice dailyraNITIdine (ZANTAC) 150 MG tablet Indications: Epigastric abdominal pain Take 1 tablet by mouth 2 times daily 60 tablet 3 12/09/2019 Active rimegepant 75 mg disintegrating oral tablet (20 sources)Start: 47-94-8912Jwlegbidgt Sulfate (Nurtec) 75 MG tablet dispersible Indications: Intractable 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 Take 75 mg by mouth See administration instructions Take 1- 75mg tablet by mouth as needed at the onset of migraine. 16 tablet 11 10/31/2024 ActiveStart: 32-67-1408Hsmvktdocd Sulfate (Nurtec) 75 MG tablet dispersible Indications: Intractable 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 (CMS/HCC) Take 75 mg by mouth See administration instructions Take 1- 75mg tablet by mouth as needed at the onset of migraine. 16 tablet 11 09/07/2024 ActiveStart: 89-47-4325Kstgfnubjt Sulfate (Nurtec) 75 MG tablet dispersible Indications: Intractable 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 (CMS/HCC) Take 75 mg by mouth See administration instructions. Take 1- 75mg tablet by mouth as needed at the onset of migraine. 16 tablet 11 08/20/2023 ActiveStart: 70-74-7605RZISEF [address] 1 TABLET ON OR UNDER THE TONGUE EVERY OTHER DAY 01/02/2022 ActiverOPINIRole 1 mg oral tablet (20 sources)Nonergot Dopamine AgonistStart: 10-31-2024 End: 97-54-0423oesp 1 tablet by mouth in the morning, then take 1 tablet by mouth in the evening, then take 1 tablet by mouth at bedtimerOPINIRole (Requip) 0.5 MG tablet Indications: Restless legs Take 1 tablet (0.5 mg) by mouth in the morning and 1 tablet (0.5 mg) in the evening and 1 tablet (0.5 mg) before bedtime. 270 tablet 3 10/31/2024 02/13/2025 Discontinued (Reorder)Start: 32-53-1553fWPQHEGomm (Requip) 0.5 MG tablet Indications: Restless legs TAKE 1 TABLET THREE TIMES A DAY 270 tablet 3 08/24/2023 ActiveStart: 02-10-2023 rOPINIRole (REQUIP) 0.5 MG tabletStart: 04-02-2021 End: 03-06-6861atdt 1 tablet by mouth three times dailyrOPINIRole (REQUIP) 1 MG tablet Indications: Restless legs Take 1 tablet by mouth 3 times daily 270tablet 1 10/10/2024 ActiveStart: 05-46-8372oTZJRJBngb (REQUIP) 0.5 MG tablettake 1 tablet by mouth twice dailyrOPINIRole (REQUIP) 0.5 MG tablet Take 0.5 mg by mouth 2 times daily 0 Activesertraline 100 mg oral tablet (20 sources)Serotonin Reuptake InhibitorStart: 90-75-7114fpokolsgvx (Zoloft) 100 MG tablet 02/25/2023 ActiveStart: 14-06-8805gcbl 2 tablets by mouth once daily sertraline (ZOLOFT) 100 MG tablet Take 2 tablets by mouth daily Currently decreasing this medication 07/30/2020 ActiveStart: 16-95-5581axdp 1 tablet by mouth once dailysertraline (ZOLOFT) 100 MG tablet Take 100 mg by mouth daily Currently decreasing this medication ActiveStart: 67-26-0628wsph 2 tablets by mouth once dailysertraline (ZOLOFT) 50 MG tablet Take 100 mg by mouth daily 2 QD 0 07/06/2019 ActiveStart: 48-61-9666ggisnazvkf (ZOLOFT) 50 MG tablet sucralfate 1000 mg oral tablet (1 source)Aluminum ComplexStart: 16-18-0432mwun 1 tablet by mouth four times daily before mealtimesucralfate (CARAFATE) 1 GM tablet Indications: Epigastric abdominal pain Take 1 tablet by mouth 4 times daily (before meals and nightly) 120 tablet 0 12/09/2019 Activesulfamethoxazole 800 mg / trimethoprim 160 mg oral tablet (8 sources)Dihydrofolate Reductase Inhibitor Antibacterial, Sulfonamide AntimicrobialStart: 04-28-2022 End: 13-29-6051fixh 1 tablet by mouth once in the morning, then take 1 tablet by mouth once at bedtimesulfamethoxazole-trimethoprim (BACTRIM DS) 800-160 MG per tablet Indications: Acute cystitis with hematuria Take 1 tablet by mouth in the morning and 1 tablet before bedtime. Do all this for 7 days. 14 tablet 0 04/28/2022 05/05/2022 ActiveStart: 01-22-2022 End: 57-25-9948jzan 1 tablet by mouth twice dailysulfamethoxazole-trimethoprim (BACTRIM DS;SEPTRA DS) 800-160 MG per tablet Take 1 tablet by mouth 2times daily for 7 days 14 tablet 0 01/22/2022 01/29/2022 ActiveStart: 08-01-2021 End: 75-68-7449tfch 1 tablet by mouth once dailysulfamethoxazole-trimethoprim (BACTRIM) 400-80 MG per tablet Indications: Frequent UTI , Urinary urgency , Urinary frequency Take 1 tablet by mouth daily Take one tablet after intercourse 30 tablet 10/30/2021 Activesulfamethoxazole-trimethoprim (Bactrim) 400-80 MG tablet Take by mouth Activethiamine 100 mg oral tablet (6 sources)Start: 08-20-2023 End: 02-15-2688pije 1 tablet by mouth in the morningthiamine (Vitamin B-1) 100 MG tablet Indications: Bilateral carpal tunnel syndrome , Idiopathic progressive polyneuropathy , Restless legs Take 1 tablet (100 mg) by mouth in the morning. 30 tablet 08/19/2024 ActivetiZANidine 4 mg oral tablet (14 sources)Central alpha-2 Adrenergic AgonistStart: 57-77-1553zyXKPdpqmb (ZANAFLEX) 4 MG tablet Take by mouth nightly 0 05/05/2020 Activetopiramate 50 mg oral tablet (15 sources)Start: 09-22-2023 End: 69-39-2953mgobaqzvqp 50 MG tablet 09/22/2023 09/14/2024 Discontinued (Side effects)Start: 74-29-4555gmxrineqno (TOPAMAX) 25 MG tabletvilazodone hydrochloride 40 mg oral tablet (8 sources)Start: 86-10-0359ysmf 1 tablet by mouth once dailyvilazodone HCl (VIIBRYD) 40 MG TABS Indications: Depression with anxiety Take 1 tablet by mouth daily 30 tablet 3 05/27/2019 Active Completed/Discontinued Medications MedicationDrug Class(es)DatesSig (Normalized)Sig (Original)alendronic acid 70 mg oral tablet (2 sources)BisphosphonateStart: 07-01-2024 End: 84-25-1022gige 1 tablet by mouth once dailyalendronate (Fosamax) 70 MG tablet 1 tablet 30 minutes before the first food, beverage or medicine of the day with plain water Orally weekly for 94 days 07/01/2024 05/24/2025 Discontinued (Therapy completed)cetirizine hydrochloride 10 mg oral capsule (20 sources)Histamine-1 Receptor AntagonistStart: 06-09-2017 End: 80-65-9158fsiqizpffb 10 mg capStart: 41-68-2088Dlpelgntbj HCl (ALL DAY ALLERGY) 10 MG CapStart: 97-68-5461fzjj 1 tablet by mouth once dailycetirizine (ZYRTEC) 10 MG tablet TAKE 1 TABLET BY MOUTH DAILY. 30 tablet 4 02/11/2016 Fabozr743 ml ciprofloxacin 2 mg/ml injection (4 sources)Quinolone AntimicrobialStart: 04-04-2025 End: 13-44-3640287 mg, IntraVENous, ONCE, 1 dose, On Thu04/04/25 at 2200, Antimicrobial Indications: Skin and Soft Tissue InfectionStart: 04-04-2025 End: 55-43-3935khmd 1 tablet by mouth twice dailyciprofloxacin (CIPRO) 500 MG tablet Take 1 tablet by mouth 2 times daily for 10 days 20 tablet 04/04/2025 04/14/2025 ActiveStart: 04-13-2021 End: 29-15-7869oaju 1 tablet by mouth twice dailyciprofloxacin (CIPRO) 250 MG tablet Indications: Acute cystitis with hematuria Take 1 tablet by mouth 2 times daily for 3 days 6 tablet 0 04/13/2021 04/16/2021 Activeclindamycin (CLEOCIN) 600 mg in sodium chloride 0.9 % 50 mL IVPB (1 source)Start: 04-04-2025 End: 61-68-3088896 mg, IntraVENous, ONCE, 1 dose, On Thu04/04/25 at 2200, Antimicrobial Indications: Skin and Soft Tissue Infectiondiclofenac sodium 0.01 mg/mg topical gel (20 sources)Nonsteroidal Anti-inflammatory DrugStart: 01-06-2023 End: 00-80-6015zkbjgwpcnw sodium 1 % gel 01/06/2023 05/24/2025 Discontinued (Therapy completed)Start: 93-60-4424okopuefnfm sodium 1 % GELgadobenate dimeglumine (MULTIHANCE) injection 10 mL (2 sources)Start: 04-11-2025 End: 57-10-2572ibxf 1 dose intravenously once10 mL, IntraVENous, IMG ONCE PRN, 1 dose, Starting on Thu04/11/25 at 1244, Until Thu04/11/25 at 1245,OtherStart: 06-25-2022 End: 78-11-4278gbuvvgjxkl dimeglumine (MULTIHANCE) injection 10 mLhydrOXYzine pamoate 50 mg oral capsule (20 sources)AntihistamineStart: 03-06-2023 End: 23-91-1419ydofFHOdjvq pamoate (Vistaril) 50 MG capsule Indications: Allergy, subsequent encounter Take 1 capsule (50 mg) by mouth as needed at bedtime for itching. 90 capsule 1 03/06/2023 03/14/2025 Discontinuedicosapent ethyl 1000 mg oral capsule (15 sources)Start: 05-17-2019 End: 65-30-0492pcke 2 capsules by mouth twice daily, then take 1 capsule by mouthIcosapent Ethyl (VASCEPA) 1 g CAPS capsule Indications: Mixed hyperlipidemia Take 2 capsules by mouth 2 times daily 120 capsule 5 05/17/2019 09/16/2020 Discontinued (LIST CLEANUP)methylPREDNISolone 125 mg injection (1 source)CorticosteroidStart: 09-16-2020 End: 76-21-6915wflvjeOTIGBQIjfoza sodium (SOLU-MEDROL) injection 125 mgStart: 09-16-2020 End: 18-41-0819ccqaztPBHVHTJlmsbk sodium (SOLU-MEDROL) injection 125 mg2 ml orphenadrine citrate 30 mg/ml injection (1 source)Muscle RelaxantStart: 09-16-2020 End: 09-47-8040bphnftnbwtdb (NORFLEX) injection 30 mg50 ml sodium chloride 9 mg/ml injection (1 source)Start: 04-04-2025 End: 51,000 mL (10.3 mL/kg), IntraVENous, at 1,935.5 mL/hr, Administer over 31 Minutes, ONCE, On Thu04/04/25 at 2200, For 1 dose Problems Active Problems Problem ClassificationProblemDateDocumented DateEpisodic/ChronicAnxiety disorders (20 sources)Anxiety; Translations: [Mixed anxiety and depressive disorder]Onset: [id number] kidney disease (20 sources)Chronic kidney disease stage 3; Translations: [Chronic renal insufficiency]Onset: 109264-38-7062MoghpqsYhobtnb kidney disease (16 sources)Chronic renal insufficiency; Translations: [Chronic kidney disease] Onset: 258493-19-7945Isaculg ulcer of skin (9 sources)Deep tissue pressure injury; Translations: [Pressure-induced deep tissue damage of other site]Onset: 249424-35-0978SsinjirHsfephjy mellitus with complications (20 sources)Polyneuropathy due to type 2 diabetes mellitus; Translations: [Type 2 diabetes mellitus with diabetic polyneuropathy]Onset: ChronicDisorders of lipid metabolism (20 sources)Mixed hypercholesterolemia and hypertriglyceridemia; Translations: [Mixed hyperlipidemia]Onset: 06-24-2013 Resolved: 211881-30-2005JlmarpcUpbosfepxq disorders (20 sources)Gastroesophageal reflux disease; Translations: [Gastro-esophageal reflux disease without esophagitis]Onset: 162580-23-6885NrfocfjXcqforun of lower limb (2 sources)Closed fracture of second metatarsal bone; Translations: [Nondisplaced fracture of second metatarsal bone, right foot, initial encounter for closed fracture]24-82-5451FoywqhzaSbjrojuhdfqcv symptoms and ill-defined conditions (5 sources)Dysuria; Translations: [Dysuria]EpisodicHeadache; including migraine (20 sources)Migraine without aura, not refractory ; Translations: [Chronic migraine without aura, not intractable, without status migrainosus]Onset: 125223-60-1648EmaqgnlKinsrkcxsytbu and screening for infectious disease (4 sources)Suspected disease caused by 2019-nCoV; Translations: [Suspected COVID-19 virus infection]EpisodicInfective arthritis and osteomyelitis (except that caused by tuberculosis or sexually transmitted disease) (20 sources)Osteomyelitis, unspecified; Translations: [Infection of thoracic spine]Onset: 196857-14-7933VpdujxpSjrhdxa and fatigue (20 sources)Fatigue; Translations: [Chronic fatigue, unspecified]Onset: 583633-90-1719UqdllvyYzkplyowb; nephrosis; renal sclerosis (20 sources)Chronic glomerulonephritis; Translations: [Chronic nephritic syndrome with unspecified morphologic changes]Onset: 004003-90-1816Ecjbvsj Nutritional deficiencies (20 sources)Vitamin D deficiency; Translations: [Vitamin D deficiency, unspecified]Onset: 844964-79-6698OmmrsqdNdapsdmfuqmxze (20 sources)Degenerative joint disease of ankle AND/OR foot; Translations: [Primary osteoarthritis, unspecifiedankle and foot]Onset: 390250-46-8407 ChronicOther acquired deformities (20 sources)Contracture of joint of left ankle; Translations: [Contracture, left ankle]Onset: 605135-79-4158GedwdoyQufvo acquired deformities (1 source)Deformity of lower limb; Translations: [Other specified acquired deformities of unspecified lower leg]23-35-1310DnbbsnhoCrwtq and unspecified benign neoplasm (1 source)Lipoma of skin and subcutaneous tissue of neck; Translations: [Benign lipomatous neoplasm of skin and subcutaneous tissue of head, face and neck] 28-96-9937CxmrovdrVhfvd and unspecified benign neoplasm (2 sources)Benign lipomatous neoplasm of skin and subcutaneous tissue of head, face and neck; Translations: [Benign lipomatous neoplasm of skin and subcutaneous tissue of head, face and neck]Onset: 78-80-0939LejcnpwfAqpxv circulatory disease (4 sources)Other specified symptoms and signs involving the circulatory and respiratory systems; Translations:[OTH SPEC SX SIGNS INVLV CIRC RS]Onset: 87-65-1127XucphnieHmhrs connective tissue disease (2 sources)Other muscle spasm; Translations: [Other muscle spasm]Onset: 77-31-2378QbsjzjeqAmiih connective tissue disease (1 source)Foot pain; Translations: [...] Translations: [Disorder of kidney and ureter, unspecified]Onset: 72-18-6837IbjbtfeqKiweq hereditary and degenerative nervous system conditions (20 sources)Restless legs; Translations: [Restless legs syndrome]Onset: 273402-83-6529ShpysmeFzzmy lower respiratory disease (1 source)Dyspnea; Translations: [SOB (shortness of breath)]EpisodicOther lower respiratory disease (2 sources)Snoring; Translations: [Snoring]64-15-8616IhjqlzdtLmzvj nervous system disorders (3 sources)Polyneuropathy, unspecified; Translations: [Polyneuropathy, unspecified]Onset: 60-61-1755HoogyshJydpq nervous system disorders (20 sources)Peripheral nerve disease ; Translations: [Polyneuropathy, unspecified]Onset: 424882-92-8352ZdnlpeaBodvd nervous system disorders (20 sources)Carpal tunnel syndrome of right wrist; Translations: [Carpal tunnel syndrome, right upper limb]Onset: 464884-34-8393BeazhckPchcx nervous system disorders (20 sources)Idiopathic progressive polyneuropathy; Translations: [Idiopathic progressive neuropathy]Onset: 604926-47-5483DjjqnckUiqiu nervous system disorders (20 sources)Bilateral carpal tunnel syndrome; Translations: [Carpal tunnel syndrome, bilateral upper limbs]Onset: 331131-57-8148NoxrvmrCyyjv nervous system disorders (20 sources)Carpal tunnel syndrome of left wrist; Translations: [Carpal tunnel syndrome, left upper limb]Onset: 771983-34-4560ViwzmkvWafgl nervous system disorders (20 sources)Inattention; Translations: [Attention and concentration deficit] Onset: 029630-78-4490MidcqgeKpvnv nervous system disorders (20 sources)Disorder of the peripheral nervous system; Translations: [Hereditary and idiopathic neuropathy, unspecified]Onset: 489254-76-3430OizkaagStfwc nervous system disorders (20 sources)Tarsal tunnel syndrome; Translations: [Tarsal tunnel syndrome, unspecified lower limb]Onset: 104951-23-9561KfpdwafJlrsb nervous system disorders (4 sources)Abnormal gait; Translations: [Unsteadiness on feet]82-82-6582Jqtnxoym Other nervous system disorders (13 sources)Carpal tunnel syndrome of right wrist; Translations: [Carpal tunnel syndrome on right]Onset: Other non-epithelial cancer of skin (15 sources)Basal cell carcinoma of face; Translations: [Basal cell carcinoma of skin of face]Onset: 335277-41-5470VersjzdGopyy non-traumatic joint disorders (4 sources)Charcot's joint, left ankle and foot; Translations: [CHARCOTS JOINT LEFT ANKLE AND FO]Onset: 72-66-5523BhjsjosSudrw non-traumatic joint disorders (3 sources)Charcot arthropathy of midfoot; Translations: [Charcot's joint, unspecified ankle and foot]97-38-0122DrkzpnmGxiqb non-traumatic joint disorders (20 sources)Acute arthropathy; Translations: [Arthropathy, unspecified]Onset: 982374-51-7756IbewujxDcooe non-traumatic joint disorders (20 sources)Charcot's arthropathy; Translations: [Charcot's joint, left ankle and foot]Onset: 459334-77-2781IiitzleWwqiv non-traumatic joint disorders (1 source)Pain in left ankle and joints of left foot; Translations: [PAIN IN LEFT ANKLE]Onset: 10-55-2742BqmaiumxFhekl nutritional; endocrine; and metabolic disorders (2 sources)Obesity caused by energy imbalance; Translations: [Other obesity due to excess calories]84-22-2699QkysvbgXmolr screening for suspected conditions (not mental disorders or infectious disease) (13 sources)Elevated C-reactive protein; Translations: [Elevated C-reactive protein (CRP)]62-66-2350Irlqw skin disorders (1 source)Mass of neck; Translations: [Localized swelling, mass and lump, neck] EpisodicOther upper respiratory disease (20 sources)Seasonal allergy; Translations: [Other seasonal allergic rhinitis] Onset: 255777-80-6502BuhovyyZfujc upper respiratory disease (3 sources)Allergic rhinitis due to pollen; Translations: [Allergic rhinitis due to pollen]74-75-8476JoepwvxWfnbhqjj codes; unclassified (20 sources)Obstructive sleep apnea syndrome; Translations: [Obstructive sleep apnea (adult) (pediatric)]Onset: 957206-10-6089FdvwerfGoiajnol codes; unclassified (20 sources)Hypersomnia; Translations: [Hypersomnia, unspecified]Onset: 709213-98-9304EmtoojdPrisueud codes; unclassified (2 sources)Localized edema; Translations: [Localized edema]Onset: 01-06-2023 EpisodicResidual codes; unclassified (2 sources)Edema, generalized; Translations: [Generalized edema]04-10-2025 EpisodicSepticemia (except in labor) (20 sources)Sepsis; Translations: [Methicillin resistant Staphylococcus aureus infection]Onset: 08-15-2018 Resolved: 617319-38-4888NwlxkngzXytd and subcutaneous tissue infections (4 sources)Infection of toe ; Translations: [Local infection of the skin and subcutaneous tissue, unspecified]13-81-4105ToymkgluDernaybakpi; intervertebral disc disorders; other back problems (20 sources)Discitis, unspecified, thoracic region; Translations: [Degeneration of thoracic intervertebral disc]Onset: 651182-35-3214WreuuclRfdgxqo disorders (20 sources)Thyroid nodule; Translations: [Nontoxic single thyroid nodule]Onset: 277080-01-1203ApypwzuCqxlbnjdhtel (1 source)Pressure-induced deep tissue damage of other site; Translations: [Pressure-induced deep tissue damage of other site]Onset: 84-49-8636Iasomku tract infections (20 sources)Acute cystitis; Translations: [Acute cystitis with hematuria]Onset: 88-58-9513BgxspcrpKtfim infection (1 source)Viral disease; Translations: [Viral infection, unspecified]Episodic Past or Other Problems Problem ClassificationProblemDateDocumented DateEpisodic/ChronicAbdominal pain (20 sources)Female genital organ symptoms; Translations: [Pelvic and perineal pain]Onset: 58-72-1617NawykduxIiowjmnkk infection; unspecified site (20 sources)Methicillin resistant Staphylococcus aureus infection; Translations: [Bacteremia due to Methicillinresistant Staphylococcus aureus] Resolved: 187431-50-7971MsasetzcNdqlfzgtrz and other anemia (20 sources)Anemia; Translations: [Anemia, unspecified]Onset: 2022 88-80-8282LdisxzxrSnaueovy mellitus without complication (20 sources)Hyperglycemia; Translations: [Hyperglycemia, unspecified]Onset: 550628-46-9908CrgekyajYdwgm and electrolyte disorders (20 sources)Lactic acidosis; Translations: [Acidosis]Onset: 08-15-2018 Resolved: 603116-92-8810EzuamngaYhjlkeoq of lower limb (20 sources)Closed fracture of second metatarsal bone; Translations: [Nondisplaced fracture of second metatarsal bone, left foot, initial encounter for closed fracture]Onset: 18-65-4478PqmpxouuBziimyhfu arthritis and osteomyelitis (except that caused by tuberculosis or sexually transmitted di sease) (20 sources)Suppurative arthritis; Translations: [Infective arthritis]Onset: 869943-19-0667CtusitwdIlpnskx and fatigue (20 sources)Fatigue; Translations: [Other fatigue]Onset: EpisodicMedical examination/evaluation (2 sources)Encounter for general adult medical examination without abnormal findings; Translations: [Encounterfor general adult medical examination without abnormal findings]Onset: 01-35-1238OulxbqoyJbhg disorders (20 sources)Depressive disorder; Translations: [Major depressive disorder, single episode, unspecified]Onset: 07-20-2012 Resolved: 460519-40-2370BhiwxtpFgsxqvynh of unspecified nature or uncertain behavior (20 sources)Neoplasm of uncertain behavior of skin; Translations: [Neoplasm of uncertain behavior of skin]Onset: 551603-08-8887LhvxjunaWbuqc MEAT CLERK infection and poliomyelitis (20 sources)Extradural and subdural abscess, unspecified; Translations: [Epidural abscess]Onset: 720945-30-3130WcybxwvcZvwoa connective tissue disease (1 source)Spasm; Translations: [Spasm of muscle]EpisodicOther connective tissue disease (20 sources)Pain in left foot; Translations: [Pain in left foot]Onset: 456091-93-0570FmnscrwgBlmmd connective tissue disease (20 sources)Pain in limb; Translations: [Pain in unspecified limb]Onset: 411118-66-1345BvmhhbbzKjrez connective tissue disease (20 sources)Muscle pain; Translations: [Myalgia, unspecified site]Onset: 743970-20-1496AmbxdpvgCkthx connective tissue disease (20 sources)Spasm of cervical paraspinous muscle; Translations: [Other muscle spasm]Onset: 431926-12-9860QrtvyjovSspso connective tissue disease (20 sources)Bilateral trochanteric bursitis; Translations: [Trochanteric bursitis, right hip]Onset: 723629-92-4537IdmigrddLtcpn connective tissue disease (1 source)Pain in right foot; Translations: [Pain in right foot]Onset: 11-60-2722LlniaktvHxada diseases of kidney and ureters (3 sources)Chronic renal insufficiency; Translations: [Disorder of kidney and ureter, unspecified]Onset: 236607-50-1350NyofimztVyrax nervous system disorders (20 sources)Metabolic encephalopathy; Translations: [Metabolic encephalopathy] Resolved: 331606-12-2771ZvdpoizWxfuk nervous system disorders (20 sources)Skin sensation disturbance; Translations: [Unspecified disturbances of skin sensation]Onset: 695855-97-1929SdpgyzolCqvtt non-epithelial cancer of skin (20 sources)Basal cell carcinoma of skin; Translations: [Basal cell carcinoma of skin, unspecified]Onset: 323421-50-9651XejeeehgCojrc screening for suspected conditions (not mental disorders or infectious disease) (20 sources)Elevated C-reactive protein; Translations: [Elevated C-reactive protein (CRP)]Onset: 858578-17-0957JbfggbixWsdgqkov codes; unclassified (20 sources)Insomnia; Translations: [Insomnia, unspecified]Onset: 03-08-2023 73-71-7108SzvajlcsZmtiyjldwzp; intervertebral disc disorders; other back problems (20 sources)Radiculopathy, cervical region; Translations: [Acute thoracic back pain]Onset: 89-42-484669202649-16-1809JwjfwyjaRckkznogseco (1 source)Patient encounter ybmzng76-74-5121 Results Test NameValueInterpretationReference RangeFacilityHemoglobin A1Con 08-03-2025 Glucose [Mass/Vol]103 mg/dLNormalSt. Elizabeth HospitalComment on above:Result Comment: The ADA and AACC recommend providing the estimated average glucose result to permit better patient understanding of their HBA1c result.Performed By: #### MORPHX, CRP, BMP, CBC, SED #### [facility] [address] [place], [place] [id number] Telecom Billing Analyst: Emily George MDHbA1c (Bld) [Mass fraction]5.2 %Normal4.0-6.0St. [facility] HospitalComment on above:Performed By: #### MORPHX, CRP, BMP, CBC, SED #### [facility] [address] [place], [place] [id number] [employer] Billing Analyst: Dayan Mirza Metabolic Panelon [id number] gap [Moles/Vol]9 mmol/L9 - 17 mmol/LBon [facility] HealthCalcium [Mass/Vol]9.7 mg/dL8.6 - 10.4 mg/dLBon Secours [facility] HealthChloride [Moles/Vol]102 mmol/L98 - 107 mmol/LBon [facility] HealthCO2 [Moles/Vol]27 mmol/L20 - 31 mmol/LBon [facility] HealthCreatinine [Mass/Vol]1.5 mg/dLHigh0.5 - 0.9 mg/dLBon [facility] Centerours [facility] HealthEst, Glom Filt Oxci27Exy- PINFBon Access Hospital DaytonComment on above: These results are not intended [...] secretion. Glucose [Mass/Vol]92 mg/dL70 - 99 mg/dLBon Access Hospital DaytonInterpretation and review of laboratory resultsAbnormalVcu Medical CenterPotassium [Moles/Vol]4.3 mmol/L3.7 - 5.3 mmol/LBon Access Hospital DaytonSodium [Moles/Vol] 138 mmol/L135 - 144 mmol/LBon Access Hospital DaytonUrea nitrogen [Mass/Vol]17 mg/dL6 - 20 mg/dLBon [facility] CenterBasic Metabolic Profon 27-93-2469Igend gap [Moles/Vol]9 mmol/LNormal9-17[facility] Comment on above:Performed By: #### MORPHX, CRP, BMP, CBC, SED #### [facility] [address] [place] [address] [employer] Billing Analyst: SHER Mirzaalcium [Mass/Vol]9.7 mg/dLNormal8.6-10.4St. [facility] HospitalComment on above:Performed By: #### MORPHX, CRP, BMP, CBC, SED #### [facility] [address] [place] [address] [employer] Billing Analyst: SHER Mirzahloride [Moles/Vol]102 mmol/EFnqrza23-667QpbbjSt. Elizabeth HospitalComment on above:Performed By: #### MORPHX, CRP, BMP, CBC, SED #### [facility] [address] [place] [address] [employer]com Billing Analyst: SHER MirzaO2 [Moles/Vol]27 mmol/DLdhyfp12-54SjghdSt. Elizabeth HospitalComment on above:Performed By: #### MORPHX, CRP, BMP, CBC, SED #### [facility] [address] [place] [address] [employer] Billing Analyst: SHER Mirzareatinine [Mass/Vol]1.5 mg/dLHigh0.5-0.9St. [facility] HospitalComment on above:Performed By: #### MORPHX, CRP, BMP, CBC, SED #### [facility] [address] [place] [address] [employer] Billing Analyst: Emily George MDGFR/1.73 sq M.predicted among non-blacks MDRD (S/P/Bld) [Vol rate/Area]43 mL/min/{1.73_m2}Low>60St. [facility] HospitalComment on above:Result Comment: These results are [...] #### MORPHX, CRP, BMP, CBC, SED #### [facility] [address] [place] [address] [employer] Billing Analyst: Emily George MDGlucose [Mass/Vol]92 mg/yLUbjzvi44-11OdjggMercy Health Anderson HospitalComment on above:Performed By: #### MORPHX, CRP, BMP, CBC, SED #### [facility] [address] [place] [address] [employer] Billing Analyst: ANNMARIE Mirzaotassium [Moles/Vol]4.3 mmol/LNormal3.7-5.3MMercy Health Anderson HospitalComment on above:Performed By: #### MORPHX, CRP, BMP, CBC, SED #### [facility] [address] [place] [id number] Telecom Billing Analyst: MARIKA Mirzaodium [Moles/Vol]138 mmol/ELwnuck712-890DghpfSt. Elizabeth HospitalComment on above:Performed By: #### MORPHX, CRP, BMP, CBC, SED #### [facility] [address] [facility] [place] [address] [employer]com Billing Analyst: Emily George MDUrea nitrogen [Mass/Vol]17 mg/dLNormal6-20St. [facility] HospitalComment on above:Performed By: #### MORPHX, CRP, BMP, CBC, SED #### [facility] [address] [place] [address] [employer]com Billing Analyst: Emily George MDBalouisville medical center Metabolic Panelon 37-38-5932Goydh gap [Moles/Vol]8 mmol/LLow9 - 17 mmol/LBon [facility] HealthCalcium [Mass/Vol] 10.1 mg/dL8.6 - 10.4 mg/dLBon [facility] HealthChloride [Moles/Vol]100 mmol/L 98 - 107 mmol/LBon Access Hospital DaytonCO2 [Moles/Vol]29 mmol/L20 - 31 mmol/LBon [facility] Hospital DaytonCreatinine [Mass/Vol]1.4 mg/dLHigh0.5 - 0.9 mg/dLBon Access Hospital DaytonEst, Glom Filt Xqxs40Oxg- PINFBon Access Hospital Dayton Comment on above: These results are not [...] secretion. Glucose [Mass/Vol]87 mg/dL70 - 99 mg/dLBon [facility] HealthPotassium [Moles/Vol]4.4 mmol/L3.7 - 5.3 mmol/LBon Access Hospital DaytonSodium [Moles/Vol] 137 mmol/L135 - 144 mmol/LBon Access Hospital DaytonUrea nitrogen [Mass/Vol]19 mg/dL6 - 20 mg/dLBon Access Hospital DaytonBasic Metabolic Profon 24-40-6205Cdnkt gap [Moles/Vol]8 mmol/LLow9-17St. [facility] HospitalComment on above:Performed By: #### MORPHX, CRP, BMP, CBC, SED #### [facility] [address] [place] [id number] Telecom Billing Analyst: SHER Mirzaalcium [Mass/Vol]10.1 mg/dLNormal8.6-10.4St. [facility] HospitalComment on above:Performed By: #### MORPHX, CRP, BMP, CBC, SED #### [facility] [address] [place] [id number] Telecom Billing Analyst: SHER Mirzahloride [Moles/Vol]100 mmol/URjsucd96-232LdvckSt. Elizabeth HospitalComhenry ford jack[facility] hospital on above:Performed By: #### MORPHX, CRP, BMP, CBC, SED #### [facility] [address] [place] [address] [employer]com Billing Analyst: Emily George MDCO2 [Moles/Vol]29 mmol/QPiumow54-06DwzfaSt. Elizabeth HospitalComment on above:Performed By: #### MORPHX, CRP, BMP, CBC, SED #### [facility] [address] [place] [id number] Telecom Billing Analyst: SHER Mirzareatinine [Mass/Vol]1.4 mg/dLHigh0.5-0.9[facility] on above:Performed By: #### MORPHX, CRP, BMP, CBC, SED #### [facility] [address] [place] [id number] Tele[employer] Billing Analyst: Emily George MDGFR/1.73 sq M.predicted among non-blacks MDRD (S/P/Bld) [Vol rate/Area]47 mL/min/{1.73_m2}Low>60St. [facility] HospitalComhenry ford jackson hospital on above:Result Comment: These results are [...] #### MORPHX, CRP, BMP, CBC, SED #### [facility] [address] [place] [address] [employer]com Billing Analyst: Emily George MDGlucose [Mass/Vol]87 mg/wQJgdepc00-64KrvlqMercy Health Anderson HospitalComment on above:Performed By: #### MORPHX, CRP, BMP, CBC, SED #### [facility] [address] [place] [address] [employer]com Billing Analyst: ANNMARIE Mirzaotassium [Moles/Vol]4.4 mmol/LNormal3.7-5.3MMercy Health Anderson HospitalComment on above:Performed By: #### MORPHX, CRP, BMP, CBC, SED #### [facility] [address] [place] [address] [employer]com Billing Analyst: MARIKA Mirzaodium [Moles/Vol]137 mmol/XWtkayr906-733HkebbSt. Elizabeth HospitalComment on above:Performed By: #### MORPHX, CRP, BMP, CBC, SED #### [facility] [address] [place] [address] [employer]com Billing Analyst: Emily George MDUrea nitrogen [Mass/Vol]19 mg/dLNormal6-20St. [facility] HospitalComment on above:Performed By: #### MORPHX, CRP, BMP, CBC, SED #### [facility] [address] [place] [address] [employer]com Billing Analyst: Emily George MDC-Reactive Proteinon [id number] High sensitivity method [Mass/Vol]16.1 mg/LHigh0.0 - 5.0 mg/LBon [facility] CRP [Mass/Vol]16.1 mg/LHigh0.0-5.0St. [facility] HospitalComhenry ford jackson hospital on above: Performed By: #### MORPHX, CRP, BMP, CBC, SED #### [facility] [address] [place] [address] [employer]com Billing Analyst: Angy Mirza 22-18-3377Peiayvjisvu distribution width (RBC) [Ratio]17.1 %High12.1 - 15.2 %Vcu Medical CenterHematocrit (Bld) [Volume fraction]34.3 %Low36.0 - 46.0 %[facility]cu Medical CenterHemoglobin (Bld) [Mass/Vol]11.0 g/dLLow12.0 - 16.0 g/dLBon Access Hospital DaytonInterpretation and review of laboratory resultsAbnormalCarilion Franklin Memorial Hospital (RBC) [Entitic mass]28.2 pg26.0 - 34.0 pgCentra Lynchburg General HospitalHC (RBC) [Mass/Vol]32.1 g/dL 31.0 - 37.0 g/dLBon [facility] Medical CenterV (RBC) [Entitic vol]87.9 fL80.0 - 100.0 fLVcu Medical CenterPlatelet mean volume (Bld) [Entitic vol]11.4 fL 6.0 - 12.0 fLVcu Medical CenterPlatelets (Bld) [#/Vol]218 10*3/uLBon Access Hospital DaytonRBC (Bld) [#/Vol]3.90 10*6/uLLow4.00 - 5.20 m/uLVcu Medical CenterWBC other (Bld) [#/Vol]9.9Bon [facility] CenterErythrocyte distribution width (RBC) [Ratio]17.1 %High12.1-15.2Mer[facility] Behavioral HealthComment on above:Performed By: #### MORPHX, CRP, BMP, CBC, SED #### [facility] [address] [place] [address] [employer]com Billing Analyst: Emily George MDHematocrit (Bld) [Volume fraction]34.3 %Low 36.0-46.0St. [facility] HospitalComment on above:Performed By: #### MORPHX, CRP, BMP, CBC, SED #### [facility] [address] [place] [id number] Telecom Billing Analyst: Emily George MDHemoglobin (Bld) [Mass/Vol]11.0 g/dLLow12.0-16.0 [facility] HospitalComment on above:Performed By: #### MORPHX, CRP, BMP, CBC, SED #### [facility] [address] [place] [address] [employer]com Billing Analyst: ELISABET MirzaCH (RBC) [Entitic mass]28.2 omTklpjp35.0-34.0 [facility] HospitalComment on above:Performed By: #### MORPHX, CRP, BMP, CBC, SED #### [facility] [address] [place] [id number] Telecom Billing Analyst: VINCENT MirzaC (RBC) [Mass/Vol]32.1 g/dWHftqxs15.0-37.0[facility] HospitalComment on above:Performed By: #### MORPHX, CRP, BMP, CBC, SED #### [facility] [address] [place] [id number] Telecom Billing Analyst: ELISABET MirzaCV (RBC) [Entitic vol]87.[address]ZCcgfyn68.0-100.0 [facility] [facility] HospitalComment on above:Performed By: #### MORPHX, CRP, BMP, CBC, SED #### [facility] [address] [place] [id number] Telecom Billing Analyst: ANNMARIE Mirzalatelet mean volume (Bld) [Entitic vol]11.4 fL Normal6.0-12.0[facility] HospitalComment on above:Performed By: #### MORPHX, CRP, BMP, CBC, SED #### [facility] [address] [place] [id number] Telecom Billing Analyst: Terrence Mirza (Bld) [#/Vol]218 10*3/dSUuwoun148-937 [facility] HospitalComhenry ford jackson hospital on above:Performed By: #### MORPHX, CRP, BMP, CBC, SED #### [facility] [address] [place], [place] [id number] Telecom Billing Analyst: ELMO Mirza (Bld) [#/Vol]3.90 10*6/uLLow4.00-5.20[facility] on above:Performed By: #### MORPHX, CRP, BMP, CBC, SED #### [facility] [address] [place] [address] Telecom Billing Analyst: LLOYD Mirza (Bld) [#/Vol]9.9 10*3/uLNormal3.5-11.0[facility] on above:Performed By: #### MORPHX, CRP, BMP, CBC, SED #### [facility] [address] [place], [place] [id number] Telecom Billing Analyst: Kiara Mirza Panel Informationon [id number] and review of laboratory resultsAbMary Washington Healthcaredimentation Rateon 13-03-9555OJW Photometric method (Bld) [Velocity]42HighVcu Medical CenterInterpretation and review of laboratory resultsAbFaulkton Area Medical CenterSedimentation Rate42 mm/HrHigh0-20[facility] HospitalComhenry ford jack[facility] hospital on above:Performed By: #### MORPHX, CRP, BMP, CBC, SED #### [facility] [address] [place] [address] [employer]com Billing Analyst: SHER Mirzareatinine, Random Urineon 15-49-1158Igzjczdmdj (U) [Mass/Vol]52.4 mg/dL28.0 - 217.0 mg/dLBon Secours Mercy HealthComment on above:Reference range defined for 1st morning urineCreatinine,Random Uron 12-06-8991Phmdhksmis [Mass/Vol]52.4 mg/eWBldkfo62.0-217.0[facility] Comment on above:Result Comment: Reference range defined for 1st morning urine Performed By: #### MORPHX, CRP, BMP, CBC, SED #### [facility] [address] [place] [address] [employer]com Billing Analyst: Kiara Mirza Panel Informationon [id number] [facility] [place] 35-64-0352Jdvzzktffs.intact [Mass/Vol]40.0 pg/mL17.9 - 58.6 pg/mLBon [facility] Hospital DaytonBon [facility], Muhmdz76.0 pg/mL Jxjkzh69.9-58.6MMercy Health Anderson HospitalComment on above:Performed By: #### MORPHX, CRP, BMP, CBC, SED #### [facility] [address] [place] [address] Telecom Billing Analyst: Emily George MDProtein, urine, randomon [id number] (U) [Mass/Vol]mg/dLmg/dLBon Access Hospital DaytonComment on above:No normal range established.Protein,Tot,[place] Uron [id number] Prot. Conc.<4NormalSt. Elizabeth HospitalComment on above:Result Comment: No normal range established.Performed By: #### MORPHX, CRP, BMP, CBC, SED #### [facility] [address] [place] [address] Telecom Billing Analyst: LASHAY Mirzaenal Function Panelon [id number] [Mass/Vol]4.2 g/dL3.5 - 5.2 g/dLBon Access Hospital DaytonAnion gap [Moles/Vol]12 mmol/L9 - 17 mmol/LBon Access Hospital DaytonCalcium [Mass/Vol]9.2 mg/dL8.6 - 10.4 mg/dLBon Access Hospital DaytonChloride [Moles/Vol]99 mmol/L98 - 107 mmol/LBon Access Hospital DaytonCO2 [Moles/Vol]24 mmol/L20 - 31 mmol/LBon [facility] Hospital DaytonCreatinine [Mass/Vol]1.3 mg/dLHigh0.5 - 0.9 mg/dLBon [facility] Hospital Dayton Est, Glom Filt Jgvu32Ezz- PINFBon Access Hospital DaytonComment on above: These results are not intended [...] that affects renal tubular secretion. Glucose [Mass/Vol]110 mg/jWUgzu79 - 99 mg/dLBon [facility] Hospital Dayton Interpretation and review of laboratory resultsAbnormalBon [facility] Phosphate [Mass/Vol]3.9 mg/dL2.6 - 4.5 mg/dLBon Access Hospital DaytonPotassium [Moles/Vol]4.5 mmol/L3.7 - 5.3 mmol/LBon Access Hospital DaytonSodium [Moles/Vol] 135 mmol/L135 - 144 mmol/LBon Access Hospital DaytonUrea nitrogen [Mass/Vol]23 mg/dLHigh6 - 20 mg/dLBon [facility] Medical CenterAlbumin [Mass/Vol]4.2 g/dLNormal3.5-5.2MercMercy Medical Center Merced Community CampusComment on above:Performed By: #### MORPHX, CRP, BMP, CBC, SED #### [facility] [address] [place] [address] Telecom Billing Analyst: Myles Mirza gap [Moles/Vol]12 mmol/LNormal9-17St. Elizabeth HospitalComhenry ford jack[facility] on above:Performed By: #### MORPHX, CRP, BMP, CBC, SED #### [facility] [address] [place] [address] Telecom Billing Analyst: SHER Mirzaalcium [Mass/Vol]9.2 mg/dLNormal8.6-10.4St. Elizabeth HospitalComment on above:Performed By: #### MORPHX, CRP, BMP, CBC, SED #### [facility] [address] [place] [phone] Telecom Billing Analyst: SHER Mirzahloride [Moles/Vol]99 mmol/NPlphqw33-856RkjklSt. Elizabeth HospitalComhenry ford jackson hospital on above:Performed By: #### MORPHX, CRP, BMP, CBC, SED #### [facility] [address] [place] [phone] Telecom Billing Analyst: SHER MirzaO2 [Moles/Vol]24 mmol/WBwrdnb08-88LhzqbSt. Elizabeth HospitalComhenry ford jackson hospital on above:Performed By: #### MORPHX, CRP, BMP, CBC, SED #### [facility] [address] [place] [address] Telecom Billing Analyst: SHER Mirzareatinine [Mass/Vol]1.3 mg/dLHigh0.5-0.9[facility] on above:Performed By: #### MORPHX, CRP, BMP, CBC, SED #### [facility] [address] [place] [phone] Telecom Billing Analyst: Emily George MDGFR/1.73 sq M.predicted among non-blacks MDRD (S/P/Bld) [Vol rate/Area]51 mL/min/{1.73_m2}Low>60St. Elizabeth HospitalComhenry ford jack[facility] hospital on above:Result Comment: These results are [...] #### MORPHX, CRP, BMP, CBC, SED #### [facility] [address] [place] [address] Telecom Billing Analyst: Emily George MDGlucose [Mass/Vol]110 mg/dYCota01-72KftssMercy Health Anderson HospitalComment on above:Performed By: #### MORPHX, CRP, BMP, CBC, SED #### [facility] [address] [place] [address] Telecom Billing Analyst: ANNMARIE Mirzahosphorus, Inorg.3.9 mg/dLNormal2.6-4.5St. Elizabeth HospitalComment on above:Performed By: #### MORPHX, CRP, BMP, CBC, SED #### [facility] [address] [place] [address] Telecom Billing Analyst: ANNMARIE Mirzaotassium [Moles/Vol]4.5 mmol/LNormal3.7-5.3MMercy Health Anderson HospitalComment on above:Performed By: #### MORPHX, CRP, BMP, CBC, SED #### [facility] [address] [place] [address] Telecom Billing Analyst: MARIKA Mirzaodium [Moles/Vol]135 mmol/GIiyijw900-875VofxuSt. Elizabeth HospitalComment on above:Performed By: #### MORPHX, CRP, BMP, CBC, SED #### [facility] [address] [place] [address] Telecom Billing Analyst: Emily George MDUrea nitrogen [Mass/Vol]23 mg/dLHigh6-20St. Elizabeth HospitalComment on above:Performed By: #### MORPHX, CRP, BMP, CBC, SED #### [facility] [address] [place] [address] Telecom Billing Analyst: Emily George MDVitamin D 25 Hydroxyon [id number]-cckursoouighti D3 [Mass/Vol]29.2 ng/mLLow30.0 - 100.0 ng/mLVcu Medical CenterComment on above: Reference Range: Vitamin D status Range Deficiency <20 ng/mL Mild Deficiency 20-30 ng/mL Sufficiency 30-100 ng/mL Toxicity >100 ng/mL Interpretation and review of laboratory resultsAbnormalBon Access Hospital Dayton Bon [facility] Hospital DaytonVitamin D 25 OHon 54-71-1530Dnaxxek D 25 OH29.2 ng/mLLow 30.0-100.0St. [facility] HospitalComhenry ford jack[facility] hospital on above:Result Comment: Reference Range: Vitamin D status Range Deficiency <20 ng/mL Mild Deficiency 20-30 ng/mL Sufficiency 30-100 ng/mL Toxicity >100 ng/mLPerformed By: #### MORPHX, CRP, BMP, CBC, SED #### [facility] [address] [place] [address] Telecom Billing Analyst: ARPAN Mirza CERVICAL SPINE COMPLETE 4-5 VIEWSon [...] BY: Gregorio Davila, DONormalNot AvailableBasic Metabolic Panelon [id number] gap [Moles/Vol]12 mmol/L9 - 17 mmol/LBon Access Hospital DaytonCalcium [Mass/Vol]9.3 mg/dL8.6 - 10.4 mg/dLBon [facility] Hospital Dayton Chloride [Moles/Vol]104 mmol/L98 - 107 mmol/LBon Access Hospital DaytonCO2 [Moles/Vol]22 mmol/L20 - 31 mmol/LBon Access Hospital DaytonCreatinine [Mass/Vol] 1.3 mg/dLHigh0.5 - 0.9 mg/dLBon Access Hospital DaytonEst, Glom Filt Dmwx49Ezy- PINFBon Access Hospital DaytonComment on above: These results are not intended [...] that affects renal tubular secretion. Glucose [Mass/Vol]131 mg/rIVllu85 - 99 mg/dLBon Access Hospital DaytonPotassium [Moles/Vol]4.4 mmol/L3.7 - 5.3 mmol/LBon Access Hospital DaytonSodium [Moles/Vol] 138 mmol/L135 - 144 mmol/LBon Access Hospital DaytonUrea nitrogen [Mass/Vol]17 mg/dL6 - 20 mg/dLBon Access Hospital DaytonBasic Metabolic Profon 68-50-1054Vutkh gap [Moles/Vol]12 mmol/LNormal9-17St. Elizabeth HospitalComment on above: Performed By: #### MORPHX, CRP, BMP, CBC, SED #### [facility] [address] [place] [address] Telecom Billing Analyst: SHER Mirzaalcium [Mass/Vol]9.3 mg/dLNormal8.6-10.4St. Elizabeth HospitalComment on above:Performed By: #### MORPHX, CRP, BMP, CBC, SED #### [facility] [address] [place] [phone] Telecom Billing Analyst: SHER Mirzahloride [Moles/Vol]104 mmol/YYglihb86-335TcfmsSt. Elizabeth HospitalComhenry ford jackson hospital on above:Performed By: #### MORPHX, CRP, BMP, CBC, SED #### [facility] [address] [place] [phone] Telecom Billing Analyst: SHER MirzaO2 [Moles/Vol]22 mmol/SMwvppu28-73SuwwvSt. Elizabeth HospitalComment on above:Performed By: #### MORPHX, CRP, BMP, CBC, SED #### [facility] [address] [place] [phone] Telecom Billing Analyst: SHER Mirzareatinine [Mass/Vol]1.3 mg/dLHigh0.5-0.9St. Elizabeth HospitalComhenry ford jackson hospital on above:Performed By: #### MORPHX, CRP, BMP, CBC, SED #### [facility] [address] [place] [address] Telecom Billing Analyst: Emily George MDGFR/1.73 sq M.predicted among non-blacks MDRD (S/P/Bld) [Vol rate/Area]52 mL/min/{1.73_m2}Low>60St. Elizabeth HospitalComment on above:Result Comment: These results are [...] #### MORPHX, CRP, BMP, CBC, SED #### [facility] [address] [place] [phone] Telecom Billing Analyst: Emily George MDGlucose [Mass/Vol]131 mg/rCMupw11-33YuauzMercy Health Anderson HospitalComment on above:Performed By: #### MORPHX, CRP, BMP, CBC, SED #### [facility] [address] [place] [phone] Telecom Billing Analyst: ANNMARIE Mirzaotassium [Moles/Vol]4.4 mmol/LNormal3.7-5.3MMercy Health Anderson HospitalComhenry ford jackson hospital on above:Performed By: #### MORPHX, CRP, BMP, CBC, SED #### [facility] [address] [place] [address] Telecom Billing Analyst: MARIKA Mirzaodium [Moles/Vol]138 mmol/NOgtlsb072-612IfusfSt. Elizabeth HospitalComhenry ford jackson hospital on above:Performed By: #### MORPHX, CRP, BMP, CBC, SED #### [facility] [address] [place] [address] Telecom Billing Analyst: Emily George MDUrea nitrogen [Mass/Vol]17 mg/dLNormal6-20St. Elizabeth HospitalComment on above:Performed By: #### MORPHX, CRP, BMP, CBC, SED #### [facility] [address] [place] [address] Telecom Billing Analyst: SHER Mirza-Reactive Proteinon [id number] High sensitivity method [Mass/Vol]6.2 mg/LHigh0.0 - 5.0 mg/LBon Access Hospital Dayton CRP [Mass/Vol]6.2 mg/LHigh0.0-5.0St. Elizabeth HospitalComment on above: Performed By: #### MORPHX, CRP, BMP, CBC, SED #### [facility] [address] [place] [phone] Telecom Billing Analyst: SHER MirzaBCon 70-23-4088Xmkhtveoelk distribution width (RBC) [Ratio]19.4 %High12.1 - 15.2 %Bon [facility] Hospital DaytonHematocrit (Bld) [Volume fraction]32.3 %Low36.0 - 46.0 %Vcu Medical CenterHemoglobin (Bld) [Mass/Vol]9.9 g/dLLow12.0 - 16.0 g/dLBon Access Hospital DaytonInterpretation and review of laboratory resultsAbnormalBon [facility] Medical CenterH (RBC) [Entitic mass]28.0 pg26.0 - 34.0 pgBon [facility] Medical CenterHC (RBC) [Mass/Vol]30.7 g/dL Low31.0 - 37.0 g/dLBon Secours Mercy HealthMCV (RBC) [Entitic vol]91.2 fL80.0 - 100.0 fLBon Access Hospital DaytonPlatelet mean volume (Bld) [Entitic vol]11.7 fL 6.0 - 12.0 fLBon [facility] HealthPlatelets (Bld) [#/Vol]154 10*3/uLBon Access Hospital DaytonRBC (Bld) [#/Vol]3.54 10*6/uLLow4.00 - 5.20 m/uLBon Access Hospital DaytonWBC other (Bld) [#/Vol]3.8Bon [facility] Medical CenterErythrocyte distribution width (RBC) [Ratio]19.4 %High12.1-15.2MMercy Health Anderson HospitalComment on above:Performed By: #### MORPHX, CRP, BMP, CBC, SED #### [facility] [address] [place] [address] Telecom Billing Analyst: Emily George MDHematocrit (Bld) [Volume fraction]32.3 %Low 36.0-46.0St. Elizabeth HospitalComment on above:Performed By: #### MORPHX, CRP, BMP, CBC, SED #### [facility] [address] [place] [address] Telecom Billing Analyst: Emily George MDHemoglobin (Bld) [Mass/Vol]9.9 g/dLLow12.0-16.0 [facility] [facility] HospitalComment on above:Performed By: #### MORPHX, CRP, BMP, CBC, SED #### [facility] [address] [place] [address] Telecom Billing Analyst: ELISABET MirzaCH (RBC) [Entitic mass]28.[address]zYkqiht19.0-34.0 [facility] [facility] HospitalComhenry ford jack[facility] hospital on above:Performed By: #### MORPHX, CRP, BMP, CBC, SED #### [facility] [address] [place] [address] Telecom Billing Analyst: VINCENT MirzaC (RBC) [Mass/Vol]30.7 g/dLLow31.0-37.0St. Elizabeth HospitalComment on above:Performed By: #### MORPHX, CRP, BMP, CBC, SED #### [facility] [address] [place] [address] Telecom Billing Analyst: ELISABET MirzaCV (RBC) [Entitic vol]91.[address]FKqgpjx26.0-100.0 [address] [facility] HospitalComment on above:Performed By: #### MORPHX, CRP, BMP, CBC, SED #### [facility] [address] [place] [phone] Telecom Billing Analyst: Haja Mirza mean volume (Bld) [Entitic vol]11.7 fL Normal6.0-12.0St. Elizabeth HospitalComment on above:Performed By: #### MORPHX, CRP, BMP, CBC, SED #### [facility] [address] [place] [address] Telecom Billing Analyst: Terrence Mirza (Bld) [#/Vol]154 10*3/vBIgeivy684-384 St[facility] HospitalComhenry ford jackson hospital on above:Performed By: #### MORPHX, CRP, BMP, CBC, SED #### [facility] [address] [place] [address] Telecom Billing Analyst: ELMO Mirza (Bld) [#/Vol]3.54 10*6/uLLow4.00-5.20St. Elizabeth HospitalComment on above:Performed By: #### MORPHX, CRP, BMP, CBC, SED #### [facility] [address] [place] [address] Telecom Billing Analyst: LLOYD Mirza (Bld) [#/Vol]3.8 10*3/uLNormal3.5-11.0St. Elizabeth HospitalComment on above:Performed By: #### MORPHX, CRP, BMP, CBC, SED #### [facility] [address] [place] [address] Telecom Billing Analyst: ELISABET MirzaORPHOLOGY CHECKon [id number] Rehan (Bld) [Interp]MODERATE ANISOCYTOSISPioneer Community Hospital of Patrick Morphology Checkon [id number] Rehan (Bld) [Interp]MODERATENormalMerCatholic HealthComment on above:Result Comment: ANISOCYTOSISPerformed By: #### MORPHX, CRP, BMP, CBC, SED #### [facility] [address] [place] [phone] Telecom Billing Analyst: Emily George MDNo Panel Informationon [id number] and review of laboratory resultsAbnormalPioneer Community Hospital of PatrickSedimentation Rateon [id number] Rate19 mm/HrNormal0-20 St[address] [facility] HospitalComhenry ford jackson hospital on above:Performed By: #### MORPHX, CRP, BMP, CBC, SED #### [facility] [address] [place] [address] Telecom Billing Analyst: Emily George MDESR Photometric method (Bld) [Velocity]19Bon [facility] CenterCom Metabolic Profon 04-14-2025 Albumin [Mass/Vol]4.2 g/dLNormal3.5-5.2MMercy Health Anderson HospitalComhenry ford jackson hospital on above: Performed By: #### LIPR, GLYHGB ####[facility] [address] [place], [place] [phone] Lab Director: Placido Pierce MD#### CP ####[facility] [address] [place] [address] Lab Director: Emily George MD#### INSU ####[facility] Xkkowoyq[address]th24[address] [place] [address] Lab Director: Placido Pierce, [facility] Fkp5583 [place], [place] [phone] Director: Emily George MD Albumin/Glob Ratio1.1Lpglik4.0-2.5St. Elizabeth HospitalComment on above: Performed By: #### LIPR, GLYHGB ####[facility] [address]bpl[address]qwtd79[address] [place] [address] Lab Director: Placido Pierce MD#### CP ####[facility] Urw[address] [place], [place] [phone] Director: Emily George MD#### INSU ####[facility] Pctsqgetczxi5518 [place], [place] [phone] Director: Placido Pierce, [facility] Pen[address] [place], [place] [phone] Director: Emily George MD Alkaline Mjla123 U/ARyag10-612SnpkoSt. Elizabeth HospitalComment on above:Performed By: #### KINDRA GLYHGB ####[facility] Ymrsfqgsjqfx4416 [place] [address] Lab Director: Placido Pierce MD#### CP ####[facility] Lku[address] [place], [place] [phone] Director: Emily George MD#### INSU ####[facility] Koazyvqs[address]qm8190 [place] [address] Lab Director: Placido Pierce, [facility] Dbx0081 [place], [place] [phone] Director: Emily George MD ALT [Catalytic activity/Vol]23 U/LNormal5-33St. Elizabeth HospitalComment on above:Performed By: #### LIPR, GLYHGB ####[facility] Yf[address]cgxajhews7675 [place] [address] Lab Director: Placido Pierce MD#### CP ####[facility] Gac5776 [place] [phone] Director: Emily George MD#### INSU ####[facility] Wozklxgzsxhn14[address] [place] [address] Lab Director: Placido Pierce, [facility] Zlg4172 [place] [address] Lab Director: Talisha Mirzaon gap [Moles/Vol]14 mmol/LNormal9-17[facility] Comment on above:Performed By: #### LIPR, GLYHGB ####[facility] Z[address]irbjnhbqi4042 [place] [address] Lab Director: Placido Pierce MD#### CP ####[facility] Nbw1778 [place] [phone] Director: Emily George MD#### INSU ####[facility] Kccfqiomfemk2637 [place] [address] Lab Director: Placido Pierce [facility] Ndh4320 [place] [address] Lab Director: Emily George MDAST [Catalytic activity/Vol]22 U/LNormal<32St. Elizabeth HospitalComment on above:Performed By: #### LIPR, GLYHGB ####[facility] Rskhannkoydu5450 [place] [address] Lab Director: Placido Pierce MD#### CP ####[facility] Ovj9611 [place] [address] Lab Director: Emily George MD#### INSU ####[facility] Jgalqykfgzay2145 [place] [address] Lab Director: Placido Pierce [facility] Fgj1055 [place] [address] Lab Director: Emily George MDBilirubin [Mass/Vol]0.5 mg/dL Normal0.3-1.2MMercy Health Anderson HospitalComment on above:Performed By: #### LIPR, GLYHGB ####[facility] Ybkttkwzftjt1025 [place], [place] [phone] Director: Placido Pierce MD#### CP ####[facility] Jry9304 [place], [place] [phone] Director: Emily George MD#### INSU ####[facility] Aqnjsrcjuwhw8538 [place], [place] [phone] Director: Placido PierceSal[facility] Mdb6055 [place], [place] [phone] Director: SHER Mirzaalcium [Mass/Vol] 9.4 mg/dLNormal8.6-10.4St. Elizabeth HospitalComment on above:Performed By: #### LIPR, GLYHGB ####[facility] Nhrdppmautst8999 [place], [place] [phone] Director: Placido Pierce MD#### CP ####[facility] Rhu0177 [place], [place] [phone] Director: Emily George MD#### INSU ####[facility] Wunwiebmmaxi7[address] [place], [place] [phone] Director: Placido Pierce, [facility] Rmg6993 [place], [place] [phone] Director: Emily George MD Chloride [Moles/Vol]99 mmol/OExwjcc19-205PqccaSt. Elizabeth HospitalComment on above: Performed By: #### LIPR, GLYHGB ####[facility] Mbmgnzuzlzsa3568 [place], [place] [phone] Director: Placido Pierce MD#### CP ####[facility] Rlk5172 [place] [address] Lab Director: Emily George MD#### INSU ####[address] [place] [address] Lab Director: Placido Pierce, [facility] K[address] [place] [address] [phone] Director: Emily George MD CO2 [Moles/Vol]26 mmol/RIfztmh40-26IuxjhSt. Elizabeth HospitalComment on above: Performed By: #### LIPR, GLYHGB ####[address] [place], [place] [phone] Director: Placido Pierce MD#### CP ####[address] [address] Lab Director: Emily George MD#### INSU ####[address] [address] Lab Director: Placido Pierce, [address] [address] Lab Director: Emily George MD Creatinine [Mass/Vol]1.4 mg/dLHigh0.5-0.9St. Elizabeth HospitalComment on above: Performed By: #### LIPR, GLYHGB ####[facility] Sb[address]klgycvcz2408 [place] [address] Lab Director: Placido Pierce MD#### CP ####[facility] Vel0432 [place], [place] [phone] Director: Emily Goerge MD#### INSU ####[address] [address] Lab Director: Placido Pierce, [facility] [address] [place], [place] [phone] Director: Emily George MD GFR/1.73 sq M.predicted among non-blacks MDRD (S/P/Bld) [Vol rate/Area]47 mL/min/{1.73_m2}Low>60St. Elizabeth HospitalComment on above:Result Comment: These results are [...] renal tubular secretion.Performed By: #### LIPMeka GLYHGB ####[address] [place], [place] [phone] Director: Placido Pierce MD#### CP ####[facility] Uyi5597 [place], [place] [phone] Director: Emily George MD#### INSU ####[address] [place], [place] [phone] Director: Placido Pierce, [facility] Ltw0340 [place], [place] [phone] Director: Emily George MDGlucose [Mass/Vol]114 mg/dLHigh 70-99MMercy Health Anderson HospitalComment on above:Performed By: #### LIPR, GLYHGB ####[facility] Cpnffgrxqbwv55[address] [place], [place] [phone] Director: Placido Pierce MD#### CP ####[facility] Yxu1193 [place], [place] [phone] Director: Emily George MD#### INSU ####[facility] [address]uf[address]rlamrd6341 [place] [address] Lab Director: Placido Pierce, [facility] Bnv7102 [place] [address] Lab Director: ANNMARIE Mirzaotassium [Moles/Vol]4.1 mmol/L Normal3.7-5.3MMercy Health Anderson HospitalComment on above:Performed By: #### LIPR, GLYHGB ####[facility] [address] [place] [address] Lab Director: Placido Pierce MD#### CP ####[facility] [address] [place] [address] Lab Director: Emily George MD#### INSU ####[address] [address] Lab Director: Placido Pierce, [facility] [address] [place] [address] Lab Director: ANNMARIE Mirzarotein [Mass/Vol] 7.2 g/dLNormal6.4-8.3MMercy Health Anderson HospitalComment on above:Performed By: #### LIPR, GLYHGB ####[address] [phone] Director: Placido Pierce MD#### CP ####[facility] [address] [place] [address] Lab Director: Emily George MD#### INSU ####[address] [address] Lab Director: Placido Pierce, [facility] Zwj[address] [place] [address] Lab Director: Emily George MD Sodium [Moles/Vol]139 mmol/PBamaxp932-102Tvkqe Willard HospitalComment on above: Performed By: #### LIPR, GLYHGB ####[facility] [address]outdatlr2182 [place] [address] Lab Director: Placido Pierce MD#### CP ####[facility] [address]az3154 [place] [address] Lab Director: Emily George MD#### INSU ####[facility] Mhabrybwjjwa2158 [place] [address] Lab Director: Placido Pierce, [facility] Fbb6649 [place] [address] Lab Director: Emily George MD Urea nitrogen [Mass/Vol]18 mg/dLNormal6-20St. [facility] HospitalComment on above:Performed By: #### LIPR, GLYHGB ####[facility] [address] [place], [place] [phone] Director: Placido Pierce MD#### CP ####[facility] Xay0237 [place] [phone] Director: Emily George MD#### INSU ####[facility] [address] [place] [address] Lab Director: Placido Pierce, [facility] Oop4203 [place] [address] Lab Director: SHER Mirzaomprehensive Metabolic Panelon [id number] [Mass/Vol]4.2 g/dL3.5 - 5.2 g/dLBon Access Hospital DaytonAlbumin/Globulin [Mass ratio]1.4 {ratio}1.0 - 2.5Bon Access Hospital DaytonALP [Catalytic activity/Vol]109 U/LHigh 35 - 104 U/LBon Access Hospital DaytonALT [Catalytic activity/Vol]23 U/L5 - 33 U/L [facility] DaytonAnion gap [Moles/Vol]14 mmol/L9 - 17 mmol/LBon Access Hospital DaytonAST [Catalytic activity/Vol]22 U/LNINF - 32 U/LBon Access Hospital DaytonBilirubin [Mass/Vol]0.5 mg/dL0.3 - 1.2 mg/dLBon [facility] Hospital Dayton Calcium [Mass/Vol]9.4 mg/dL8.6 - 10.4 mg/dLBon Access Hospital DaytonChloride [Moles/Vol]99 mmol/L98 - 107 mmol/LBon Access Hospital DaytonCO2 [Moles/Vol]26 mmol/L20 - 31 mmol/LBon Access Hospital DaytonCreatinine [Mass/Vol]1.4 mg/dLHigh 0.5 - 0.9 mg/dLBon Access Hospital DaytonEst, Glom Filt Cens35Hzk- PINFBon Access Hospital DaytonComment on above: These results are not intended [...] that affects renal tubular secretion. Glucose [Mass/Vol]114 mg/iCPdjt21 - 99 mg/dLBon Access Hospital Dayton Interpretation and review of laboratory resultsAbnormalVcu Medical Center Potassium [Moles/Vol]4.1 mmol/L3.7 - 5.3 mmol/LBon Access Hospital DaytonProtein [Mass/Vol]7.2 g/dL6.4 - 8.3 g/dLBon Access Hospital DaytonSodium [Moles/Vol]139 mmol/L135 - 144 mmol/LBon Access Hospital DaytonUrea nitrogen [Mass/Vol]18 mg/dL6 - 20 mg/dLBon [facility] Webster Medical CenterHemoglobin A1Con 83-32-3529Vcrmpel glucose Estimated from glycated hemoglobin (Bld) [Mass/Vol]123 mg/dLBon Access Hospital DaytonComment on above:The ADA and AACC recommend providing the estimated average glucose result to permit better patient understanding of their HBA1c result. HbA1c (Bld) [Mass fraction]5.9 %4.0 - 6.0 %Bon Access Hospital DaytonBon Access Hospital DaytonGlucose [Mass/Vol]123 mg/dLNormMartins Ferry HospitalComment on above:Result Comment: The ADA and AACC recommend providing the estimated average glucose result to permit better patient understanding of their HBA1c result.Performed By: #### LIPR, GLYHGB ####[facility] Tqxaprtzxgki4796 [place], [place] [phone] Director: Placido Pierce MD#### CP ####[facility] Pcv2281 [place], [place] [phone] Director: Emily George MD#### INSU ####[facility] R[address]rjuke[address]zyq[address]47 [place], [place] [phone])[phone] Director: Placido Pierce, [facility] [address] [place] [address])[phone] Director: Emily George MD HbA1c (Bld) [Mass fraction]5.9 %Normal4.0-6.0St. [facility] HospitalComment on above:Performed By: #### LIPR, GLYHGB ####[facility] Czkzmyjvcd[address]z2319 [place], [place] [phone] Director: Placido Pierce MD#### CP ####[facility] Kdc[address] [place], [place] [phone] Director: Emily George MD#### INSU ####[facility] Rpexdjujadfu4914 [place], [place] [phone] Director: Placido Pierce, [facility] Awh1798 [place], [place] [address])[phone] Director: Emily George MDInsulinon 67-44-7726Iiofnnq73.0 mU/LNMemorial Health System [facility] Comment on above:Performed By: #### LIPR, GLYHGB ####[facility] [address] [place] [address] Lab Director: Placido Peirce MD#### CP ####[facility] Rsa8973 [place] [phone] Director: Emily George MD#### INSU ####[address] [phone] Director: Placido Pierce [facility] [address] [place] [address] Lab Director: Richard Mirza RangeNormalSt. Elizabeth HospitalComment on above: Result Comment: Fastin.6-24.9 30 min: 20-112 60 min: 29-88 90 min: 26-84 120 min: 22-79Performed By: #### LIPR, GLYHGB ####[address] [phone] Director: Placido Pierce MD#### CP ####[facility] Mnu[address] [place] [phone] Director: Emily George MD#### INSU ####[address] [address] Lab Director: Placido Pierce [facility] R[address] [place] [address] Lab Director: SHER Mirzaollection Info.FASTINGNormalSt. Elizabeth HospitalComhenry ford jackson hospital on above:Performed By: #### LIPR, GLYHGB ####[facility] Cspmbnhytprl[address]21 [place], [place] [phone] Director: Placido Pierce MD#### CP ####[facility] V[address] [place] [address] [phone] Director: Emily George MD#### INSU ####[address] [place] [address] Lab Director: Placido Pierce, [facility] [address] [place], [place] [phone] lab Director: Emily George MDInsulin, Totalon 27-20-2365Skhcpwx15.0 mU/LBon Access Hospital DaytonInsulin CommentFASTMountain States Health AllianceInsulin Reference Range:Vcu Medical CenterComment on above:Fastin.6-24.9 30 min: 20-112 60 min: 29-88 90 min: 26-84 120 min: 22-79 Lipid Panelon 87-66-2162Tumohttntze [Mass/Vol]158 mg/dL0 - 199 mg/dLBon Access Hospital DaytonComment on above: Cholesterol Guidelines: <200 Desirable 200-240 Borderline >240 Undesirable Cholesterol in HDL [Mass/Vol]31 mg/dLLow40 - PINF mg/dLBCumberland Hospital Comment on above: HDL Guidelines: <40 Undesirable 40-59 Borderline >59 Desirable Cholesterol in LDL [Mass/Vol]59 mg/dL0 - 100 mg/dLBCumberland Hospital Comment on above: LDL Guidelines: <100 Desirable 100-129 Near to/above Desirable 130-159 Borderline >159 Undesirable Direct (measured) LDL and calculated LDL are not interchangeable tests. Cholesterol in VLDL [Mass/Vol]68 mg/dLHigh1 - 30 mg/dLBon [facility] Hospital Dayton Cholesterol.total/Cholesterol in HDL [Mass ratio]5.1 {ratio}HighNINF - 5.0Vcu Medical CenterInterpretation and review of laboratory resultsAbnormalVcu Medical CenterTriglyceride [Mass/Vol]341 mg/dLHighNINF - 150 mg/dLBon Access Hospital DaytonComment on above: Triglyceride Guidelines: <150 Desirable 150-199 Borderline 200-499 High >499 Very high Based on AHA Guidelines for fasting triglyceride, July 2012. Lipid Profileon 93-72-4736Pkywkvevttp [Mass/Vol]158 mg/dLNormal0-199St. Elizabeth HospitalComment on above:Result Comment: Cholesterol Guidelines: <200 Desirable 200-240 Borderline >240 UndesirablePerformed By: #### LIPR, GLYHGB ####[facility] Slnozzoxgmac[address] [place], [place] [phone] Director: Placido Pierce MD#### CP ####[facility] Dyq[address]128 [place], [place] [phone] Director: Emily George MD#### INSU ####[address] [phone] Director: Placido Pierce, [facility] Qml8018 [place] [address] Lab Director: Emily George MDCholesterol in HDL [Mass/Vol]31 mg/dLLow>40MerCatholic HealthComment on above:Result Comment: HDL Guidelines: <40 Undesirable 40-59 Borderline >59 DesirablePerformed By: #### LIPR, GLYHGB ####[address] [phone] Director: Placido Pierce MD#### CP ####[facility] Uwl4987 [place] [phone] Director: Emily George MD#### INSU ####[address] [phone] Director: Placido Pierce, [facility] Oar5959 [place], [place] [address])[phone] Director: SHER Mirzaholesterol in LDL [Mass/Vol]59 mg/dLNormal0-100Wexner Medical Centerment on above:Result Comment: LDL Guidelines: <100 Desirable 100-129 Near to/above Desirable 130-159 Borderline >159 Undesirable Direct (measured) LDL and calculated LDL are not interchangeable tests.Performed By: #### LIPR, GLYHGB ####[facility] [address]ohfbxrtysu[address] [place], [place] [phone] Director: Placido Pierce MD#### CP ####[facility] Gwp7392 [place] [address] Lab Director: Emily George MD#### INSU ####[facility] [place] [address] Lab Director: Placido Pierce, [facility] Pet[address]22 [place] [address] Lab Director: Emily George MD Cholesterol in VLDL [Mass/Vol]68 mg/dLHigh1-30St. Elizabeth HospitalComment on above:Performed By: #### LIPR, GLYHGB ####[facility] Gvjfulqwmgah6[address] [place] [address] Lab Director: Placido Pierce MD#### CP ####[facility] Gta[address]54 [place] [phone] Director: Emily George MD#### INSU ####[facility] [place] [address] Lab Director: Placido Pierce, [facility] Gsu4873 [place] [address] Lab Director: Oliverio Mirzasteromatthew.total/Cholesterol in HDL [Mass ratio]5.1 {ratio} High<5.0St. Elizabeth HospitalComment on above:Performed By: #### LIPR, GLYHGB ####[facility] Barsxzqhfpqp0456 [place] [address] Lab Director: Placido Pierce MD#### CP ####[facility] Axa8341 [place] [address] Lab Director: Emily George MD#### INSU ####[facility] [place] [address] Lab Director: Placido Pierce, [facility] Vkr0831 [place] [address] Lab Director: Emily George MDTriglyceride [Mass/Vol]341 mg/dL High<150St. Elizabeth HospitalComment on above:Result Comment: Triglyceride Guidelines: <150 Desirable 150-199 Borderline 200-499 High >499 Very high Based on AHA Guidelines for fasting triglyceride, July 2012.Performed By: #### LIPR, GLYHGB ####[facility] [address]is[address]jt[address] [place], [place] [phone] Lab Director: Placido Pierce MD#### CP ####[facility] Mno5376 [place] [address] Lab Director: Emily George MD#### INSU ####[facility] [place] [address] Lab Director: Placido Pierce [facility] Guq3557 [place] [address] Lab Director: Emily George MD No Panel Informationon 12-73-5480Bpy [facility] Foot - right WO and W [...] superimposed infection be difficult to include. Bon [facility] Foot - right WO and W contrast IVOrdered By: Robin Mcarthur on 74-72-4002Bvf [facility] Work Phone: MRI FOOT RIGHT W WO CONTRASTon [id number]: MRI FOOT RIGHT W WO CONTRAST COMPARISON: [...] by: Robin Mcarthur MD 04/12/25 Final result [facility] FOOT RIGHT W WO CONTRASTEXAM: MRI FOOT [...] Signed by: Robin Mcarthur MD 04/12/25 Final resultNormMartins Ferry HospitalRadiology Study observation (narrative) [facility] HospitalI FOOT RIGHT W WO CONTRASTOrdered By: Radiologist Radiology on 05-78-7997LXKTSoutheast Missouri Hospital Work Phone: bUN & Creatinineon 53-57-5798Nfhvtlmetl [Mass/Vol]1.3 mg/dLHigh0.5 - 0.9 mg/dLBon Access Hospital DaytonSariah Hahn Obyv30Hcs- PINF Vcu Medical CenterComment on above: These [...] nitrogen [Mass/Vol]15 mg/dL6 - 20 mg/dLBon [facility] Webster Medical CenterBUN + Creatinineon 12-04-8980Tqugeoveha [Mass/Vol]1.3 mg/dLHigh 0.5-0.9Wexner Medical Centerment on above:Performed By: #### BUNCRT ####[facility] Jjg7836 [place] [phone] Director: Emily George MDGFR/1.73 sq M.predicted among non-blacks MDRD (S/P/Bld) [Vol rate/Area]52 mL/min/{1.73_m2}Low>60St. Elizabeth HospitalComment on above:Result Comment: These results are [...] affects renal tubular secretion.Performed By: #### BUNCRT ####[place] [phone] lab Director: Emily George MDUrea nitrogen [Mass/Vol]15 mg/dLNoal6-20St. Elizabeth HospitalComment on above:Performed By: #### BUNCRT ####[facility] [address] [place] [address] lab Director: ELISABET MirzaT BUN + CREATININEon 89-46-0239Fabnrpxjys [Mass/Vol]1.3 mg/dLHigh0.5 - 0.9 mg/dLLONE PEAK [facility] HealthcareInterpretation and review of laboratory resultsAbnoCurahealth Heritage ValleyMHPT SWBU47Tir- PINFSoutheast Missouri HospitalComment on above: These results are not [...] secretion. Urea nitrogen [Mass/Vol]15 mg/dL6 - 20 mg/dLSoutheast Missouri HospitalOriginal Ordering Provider: ROBBIN DENTONPrisma Health [facility] Foot - right WO and W contrast Chay [id number] Study observation (narrative)Sid [facility] Hospital DaytonXR Foot - right 2 Viewson [id number] Result: XRAY RIGHT FOOT: AP/OBL- No fx. Lis franc diastasis concern with deformity. DP 2 mild cortical disruption 1-2mm possible. No bone density changesAshe Memorial Hospital Cult,Woundon [id number],WoundSpecimen Description .TOE Direct Exam NO NEUTROPHILS SEEN [...] <=1 SUSCEPTIBLE Trimethoprim/Sulfa <=10 SUSCEPTIBLE Vancomycin 1 SUSCEPTIBLESusceptibleSt. Elizabeth HospitalComment on above: Performed By: #### MORPHX, CRP, BMP, CBC, SED #### [facility] [address] [place], [place] [phone] Telecom Billing Analyst: ARPAN Mirza Foot - right 2 Viewson [id number] Study observation (narrative)[facility] Natri. Peptideon 04-04-2025 Natriuretic peptide B (Bld) [Mass/Vol]262 pg/mLNormal<300[facility] Comment on above:Result Comment: An age-independent cutoff point of 300 pg/ml has a 98% negative predictive value excluding acute heart failure.Performed By: #### BNP, SED, CRP ####[facility] Geb[address] [place], [place] [phone] Lab Director: Jessica Mirza Natriuretic Peptideon 12-48-7753Eiiqnkondok peptide B (Bld) [Mass/Vol]262 pg/mLNINF - 300 pg/mLBon Access Hospital DaytonComment on above:An age-independent cutoff point of 300 pg/ml has a 98% negative predictive value excluding acute heart failure. C-Reactive Proteinon [id number] High sensitivity method [Mass/Vol]46.7 mg/L High0.0 - 5.0 mg/LBon Access Hospital DaytonInterpretation and review of laboratory resultsAbnormalVcu Medical CenterCRP [Mass/Vol]46.7 mg/LHigh 0.0-5.0St. Elizabeth HospitalComment on above:Performed By: #### BNP, SED, CRP ####[facility] Lyx[address] [facility] HealthwilianSEATTLE, [place] [phone] Director: Emily George [facility] with Auto Differentialon 04-04-2025 Basophils (Bld) [#/Vol]0.02 10*3/uLBon Secours Blanchard Valley Health System Bluffton HospitalBasophils/100 WBC (Bld)0 %0 - 2 %Vcu Medical CenterEosinophils (Bld) [#/Vol]0.07 10*3/uLBon Secours Blanchard Valley Health System Bluffton HospitalEosinophils/100 WBC (Bld)1 %0 - 5 %[facility] Erythrocyte distribution width (RBC) [Ratio]18.4 %High12.1 - 15.2 %Vcu Medical CenterHematocrit (Bld) [Volume fraction]30 %Low36.0 - 46.0 %Vcu Medical CenterHemoglobin (Bld) [Mass/Vol]9.6 g/dLLow12.0 - 16.0 g/dLBon SecClermont County HospitalImmature granulocytes (Bld) [#/Vol]0.13 10*3/uLBon SecClermont County HospitalImmature granulocytes/100 WBC (Bld)2 %0 - 5 %[facility] Interpretation and review of laboratory resultsAbnormalVcu Medical Center Lymphocytes/100 WBC (Bld)23 %15 - 40 %Bon SecClermont County HospitalLymphocytes/100 WBC (Bld)1.39 %Bon SecParkview Health Bryan HospitalH (RBC) [Entitic mass]27 pg26.0 - 34.0 pgBon SecParkview Health Bryan HospitalHC (RBC) [Mass/Vol]32 g/dL31.0 - 37.0 g/dLBon Secours Mount St. Mary HospitalV (RBC) [Entitic vol]84.3 fL80.0 - 100.0 fLVcu Medical CenterMonocytes/100 WBC (Bld)6 %4 - 8 %[facility] Monocytes/100 WBC (Bld)0.37 %Vcu Medical CenterNeutrophils/100 WBC (Bld)68 %47 - 75 %Vcu Medical CenterPlatelet mean volume (Bld) [Entitic vol]11.7 fL6.0 - 12.0 fLVcu Medical CenterPlatelets (Bld) [#/Vol]186 10*3/uLBon Access Hospital DaytonRBC (Bld) [#/Vol]3.56 10*6/uLLow4.00 - 5.20 m/uLVcu Medical CenterSegmented neutrophils/100 WBC (Bld)4.09 %Vcu Medical CenterWBC other (Bld) [#/Vol]6.1Bon [facility] Medical CenterCBC with Diffon 52-08-3236Auf. Basophil0.02 k/uLNormal0.00-0.20[facility] Comment on above:Performed By: #### CDP ####[facility] Ekc5411 [place] [address] Lab Director: Emily George MD Abs.Imm.Granulocyte0.13 k/uLNormal0.00-0.30St. Elizabeth HospitalComment on above:Performed By: #### CDP ####[facility] Fkz0447 [place] [address] Lab Director: Emily George MDAbs.Neutrophil (Seg)4.09 k/uLNormal2.5-7.0St. Elizabeth HospitalComment on above:Performed By: #### CDP ####[facility] Yeu8260 [place] [address] Lab Director: Emily George MDBasophils/100 WBC (Bld)0 %Normal 0-2[facility] Crossroads Behavioral HealthComment on above:Performed By: #### CDP ####[facility] [address] [place] [address] Lab Director: Emily George MDEosinophils (Bld) [#/Vol]0.07 10*3/uLNormal0.00-0.40 [facility] HospitalComment on above:Performed By: #### CDP ####[facility] Pvx37[address] [facility] [place] [address] Lab Director: Emily George MDEosinophils/100 WBC (Bld)1 %Normal0-[address] [place] [address] Comment on above:Performed By: #### CDP ####[facility] Syo[address] [facility], [place] [address] Lab Director: Emily George MD Erythrocyte distribution width (RBC) [Ratio]18.4 %High12.1-15.2MMercy Health Anderson HospitalComment on above:Performed By: #### CDP ####[facility] Kdr[address] [facility], [place] [address] Lab Director: Emily George MDHematocrit (Bld) [Volume fraction]30.0 %Low36.0-46.0St. Elizabeth HospitalComment on above:Performed By: #### CDP ####[facility] Uwo2865 [place] [address] Lab Director: Emily George MDHemoglobin (Bld) [Mass/Vol]9.6 g/dLLow12.0-16.0[facility] Comment on above:Performed By: #### CDP ####[facility] Dox[address] [facility], [place] [address] Lab Director: Emily George MD Immature granulocytes/100 WBC (Bld)2 %Normal0-5St. Elizabeth HospitalComment on above:Performed By: #### CDP ####[facility] Kls6362 [place] [address] Lab Director: Leelee Mirzamphocytminh (Bld) [#/Vol]1.39 10*3/uLNormal1.00-4.80St. Elizabeth HospitalComment on above: Performed By: #### CDP ####[facility] Noh8845 [place] [address] Lab Director: Shanelle Mirzahocytes/100 WBC (Bld)23 %Ddyjfp44-29OkxqcSt. Elizabeth HospitalComment on above:Performed By: #### CDP ####[facility] Mmp3783 [place] [address] Lab Director: ELISABET MirzaCH (RBC) [Entitic mass]27.0 pg Jxjjhz03.0-34.0St. Elizabeth HospitalComment on above:Performed By: #### CDP ####[facility] Aat1337 [place] [phone] Director: ELISABET MirzaCHC (RBC) [Mass/Vol]32.0 g/xTXfuszm82.0-37.0 St[facility] Elizabeth HospitalComment on above:Performed By: #### CDP ####[facility] Jbc[address] [place] 2221390 Lab Director: ELISABET MirzaCV (RBC) [Entitic vol]84.3 eDVoffpn77.0-100.0St. Elizabeth HospitalComment on above:Performed By: #### CDP ####[facility] Qcv9608 [place] [address] Lab Director: ELISABET Mirzaonocytes (Bld) [#/Vol]0.37 10*3/uLNormal0.00-1.00St. Elizabeth HospitalComment on above:Performed By: #### CDP ####[facility] Kso[address] [place] [address] Lab Director: ELISABET Mirzaonocytes/100 WBC (Bld)6 %Normal4-8St. Elizabeth HospitalComment on above:Performed By: #### CDP ####[facility] Cwu[address] [facility] [place] [address] Lab Director: Vincent Mirzautrophil (Seg) 68 %Kjskkj30-11BqnxeSt. Elizabeth HospitalComment on above:Performed By: #### CDP ####[facility] Qhl[address] [facility] [place] [phone] Director: Haja Mirza mean volume (Bld) [Entitic vol]11.7 fLNormal6.0-12.0St. Elizabeth HospitalComment on above:Performed By: #### CDP ####[facility] Ybh[address]150 [place] [phone] Director: Terrence Mirza (Bld) [#/Vol]186 10*3/uLNormal 140-450St. Elizabeth HospitalComment on above:Performed By: #### CDP ####[facility] Pes[address]19 [facility] [place] [phone] Director: LASHAY MirzaBC (Bld) [#/Vol]3.56 10*6/uLLow4.00-5.20St. [facility] HospitalComment on above:Performed By: #### CDP ####[facility] Mei[address] [facility] [place] [address] Lab Director: LLOYD Mirza (Bld) [#/Vol]6.1 10*3/uLNormal3.5-11.0[facility] on above:Performed By: #### CDP ####[facility] Vcn[address] [place] [address] lab Director: Emily George MD No Panel Informationon 04-04-2025 No acute osseous injury. Soft tissue swelling of the left great toe on the right second toe without radiographic evidence of osteomyelitis. Postsurgical changes partially imaged on the left. [facility] CONSOLIDATEDEXAM: XR TOE LEFT (MIN [...] blastic bony lesions. There is normal mineralization. [facility] Daksha Bourne MD - 04/04/2025 [...] Postsurgical changes partially imaged on the left. [facility] PatrickNo Panel InformationOrdered By: Daksha Hannah on [id number] [facility] Work Phone: sedimentation Rateon 12-11-8041GPQ Photometric method (Bld) [Velocity]32[facility] HospitalInterpretation and review of laboratory resultsAbnormalPioneer Community Hospital [facility] Sedimentation Rate32 mm/HrCabell Huntington Hospital072 Perry StreetComment on above: Performed By: #### BNP, SED, CRP ####[facility] Oyx[address]70 [place] [address] lab Director: LIONEL MirzaR TOE LEFT (MIN 2 VIEWS)on [id number] TOE LEFT (MIN 2 VIEWS)EXAM: XR TOE [...] Signed by: Daksha Hannah MD 04/04/25 Final resultNoSt. Rita's HospitalXR TOE RIGHT (MIN 2 VIEWS)on 04-04-2025 [...] Signed by: Daksha Hannah MD 04/04/25 Final resultNormalSt. Elizabeth HospitalXR Toes - left 2 Viewson 04-04-2025 Radiology Study observation (narrative)Sid [facility] Hospital DaytonXR Toes - right 2 Viewson [id number] Study observation (narrative)Sid [facility] Centerlynnette [facility] BRIAN DIGITAL SCREEN BILATERALon [id number] BRIAN DIGITAL SCREEN BILATERALHISTORY: Screening. TECHNIQUE: Bilateral [...] to the patient. Performing Facility: [facility] [address] [place] [id number] Interpreted by: Micky Lauren Jr., MD Signed by: Micky Lauren Jr., MD 02/28/25 Final resultNormalSt. Elizabeth HospitalComp Metabolic Profon 48-18-5002Jqzuaic [Mass/Vol]3.8 g/dLNormal3.5-5.2MercMercy Medical Center Merced Community CampusComment on above:Performed By: #### LIPR, LDLDIR, GLYHGB #### [facility] [employer] [address] [place] [address] Telecom Billing Analyst: Placido Pierce MD #### CP #### [facility] [address] [place] [address] Telecom Billing Analyst: Manish Mirza Jtjw746 /[id number] Petty StreetComment on above:Performed By: #### LIPR, LDLDIR, GLYHGB #### [facility] [employer] [address] [place] [address] [phone] Telecom Billing Analyst: Placido Pierce MD #### CP #### [facility] [address] [place], [place] [phone] Telecom Billing Analyst: RAMA Mirza [Catalytic activity/Vol]11 U/LNormal5-33[facility] on above:Performed By: #### LIPR, LDLDIR, GLYHGB #### [address] [phone] Telecom Billing Analyst: Placido Pierce MD #### CP #### [facility] [address] [place], [place] 4845390 Telecom Billing Analyst: Myles Mirza gap [Moles/Vol]12 mmol/LNormal9-17St. Elizabeth HospitalComment on above:Performed By: #### LIPR, LDLDIR, GLYHGB #### [address] [phone] Telecom Billing Analyst: Placido Pierce MD #### CP #### [facility] [address] [place], [place] 4679590 Telecom Billing Analyst: YADY Mirza [Catalytic activity/Vol]14 U/LNormal<32St. Elizabeth HospitalComhenry ford jackson hospital on above:Performed By: #### LIPR, LDLDIR, GLYHGB #### [address] [phone] Telecom Billing Analyst: Placido Pierce MD #### CP #### [facility] [address] [place], [place] 9753790 Telecom Billing Analyst: Emily George MDBilirubin [Mass/Vol]0.4 mg/dLNormal0.3-1.2MMercy Health Anderson HospitalComhenry ford jackson hospital on above:Performed By: #### LIPR, LDLDIR, GLYHGB #### [address] [phone] Telecom Billing Analyst: Placido Pierce MD #### CP #### [facility] [address] [place], [place] 8161190 Telecom Billing Analyst: Emily George MDBUN/CRE Mgrra75Aeogmb2-31[facility] Comment on above:Performed By: #### LIPR, LDLDIR, GLYHGB #### [address] [address] Telecom Billing Analyst: Placido Pierce MD #### CP #### [facility] [address] [place], [place] 5830090 Telecom Billing Analyst: SHER Mirzaalcium [Mass/Vol]9.3 mg/dLNormal8.6-10.4St. Elizabeth HospitalComment on above:Performed By: #### LIPR, LDLDIR, GLYHGB #### [address] [phone] Telecom Billing Analyst: Placido Pierce MD #### CP #### [facility] [address] [place], [place] 3097790 Telecom Billing Analyst: SHER Mirzahloride [Moles/Vol]102 mmol/AVdlnie21-658InnhbSt. Elizabeth HospitalComment on above:Performed By: #### LIPR, LDLDIR, GLYHGB #### [address] [address] Telecom Billing Analyst: Placido Pierce MD #### CP #### [facility] [address] [place], [place] 1510690 Telecom Billing Analyst: SHER MirzaO2 [Moles/Vol]25 mmol/KPievfk23-62CncfoSt. Elizabeth HospitalComment on above:Performed By: #### LIPR, LDLDIR, GLYHGB #### [address] [address] Telecom Billing Analyst: Placido Pierce MD #### CP #### [facility] [address] [place] [address] Telecom Billing Analyst: SHER Mirzareatinine [Mass/Vol]1.1 mg/dLHigh0.5-0.9St. Elizabeth HospitalComment on above:Performed By: #### LIPR, LDLDIR, GLYHGB #### [address] [phone] Telecom Billing Analyst: Placido Pierce MD #### CP #### [facility] [address] [place] [address] Telecom Billing Analyst: Emily George MDGFR/1.73 sq M.predicted among non-blacks MDRD (S/P/Bld) [Vol rate/Area]63 mL/min/{1.73_m2}Normal>60[facility] Comment on above:Result Comment: These results [...] secretion.Performed By: #### LIPR, LDLDIR, GLYHGB #### [address] [id number] Telecom Billing Analyst: Placido Pierce MD #### CP #### [facility] [address] [place] [address] Telecom Billing Analyst: Emily George MDGlucose [Mass/Vol]125 mg/yDVoyd88-06UgavwMercy Health Anderson HospitalComment on above:Performed By: #### LIPR, LDLDIR, GLYHGB #### [facility] [address] [place], [place] 5569608 Telecom Billing Analyst: Placdio Pierce MD #### CP #### [facility] [address] [place], [place] 5940690 Telecom Billing Analyst: ANNMARIE Mirzaotassium [Moles/Vol]4.2 mmol/LNormal3.7-5.3MMercy Health Anderson HospitalComment on above:Performed By: #### LIPR, LDLDIR, GLYHGB #### [address] [id number] Telecom Billing Analyst: Placido Pierce MD #### CP #### [facility] [address] [place], [place] 4095790 Telecom Billing Analyst: ANNMARIE Mirzarotein [Mass/Vol]7.2 g/dLNormal6.4-8.3MMercy Health Anderson HospitalComment on above:Performed By: #### LIPR, LDLDIR, GLYHGB #### [address] [phone] Telecom Billing Analyst: Placido Pierce MD #### CP #### [facility] [address] [place], [place] 6858090 Telecom Billing Analyst: MARIKA Mirzaodium [Moles/Vol]139 mmol/XNdvksb973-579GhyhiSt. Elizabeth HospitalComment on above:Performed By: #### LIPR, LDLDIR, GLYHGB #### [address] [address] Telecom Billing Analyst: Placido Pierce MD #### CP #### [facility] [address] [place], [place] 8282090 Telecom Billing Analyst: Emily George MDUrea nitrogen [Mass/Vol]21 mg/dLHigh6-20St. Elizabeth HospitalComment on above:Performed By: #### LIPR, LDLDIR, GLYHGB #### [address] [address] Telecom Billing Analyst: Placido Pierce MD #### CP #### [facility] [address] [place] [address] Telecom Billing Analyst: Emily George, [facility] WATONGAompbrown memorial hospitalensive Metabolic Panelon 04-58-6291Dkbkuyz [Mass/Vol]3.8 g/dL3.5 - 5.2 g/dLBon Access Hospital DaytonALP [Catalytic activity/Vol]115 U/LHigh35 - 104 U/LBon Access Hospital DaytonALT [Catalytic activity/Vol]11 U/L5 - 33 U/LBon Access Hospital DaytonAnion gap [Moles/Vol]12 mmol/L9 - 17 mmol/LBon Access Hospital DaytonAST [Catalytic activity/Vol]14 U/L NINF - 32 U/LBon Access Hospital DaytonBilirubin [Mass/Vol]0.4 mg/dL0.3 - 1.2 mg/dLBon Access Hospital DaytonCalcium [Mass/Vol]9.3 mg/dL8.6 - 10.4 mg/dLBon [facility] CenterPeople Power [facility] CenterChloride [Moles/Vol]102 mmol/L98 - 107 mmol/LBon [facility] DaytonCO2 [Moles/Vol]25 mmol/L20 - 31 mmol/LBon [facility] Creatinine [Mass/Vol]1.1 mg/dLHigh0.5 - 0.9 mg/dLBon [facility] CenterPeople Power [facility] CenterEst, Glom Filt Rate63- PINFBon Access Hospital DaytonComment on above: These results are not intended [...] that affects renal tubular secretion. Glucose [Mass/Vol]125 mg/iWLmsh80 - 99 mg/dLBon [facility] Centeri'mma Interpretation and review of laboratory resultsAbnormalBon [facility] Potassium [Moles/Vol]4.2 mmol/L3.7 - 5.3 mmol/LBon [facility] Swan IncProtein [Mass/Vol]7.2 g/dL6.4 - 8.3 g/dLBon [facility] DaytonSodium [Moles/Vol]139 mmol/L135 - 144 mmol/LBon [facility] DaytonUrea nitrogen [Mass/Vol]21 mg/dL High6 - 20 mg/dLBon [facility] DaytonUrea nitrogen/Creatinine [Mass ratio]19 mg/mg9 - 20Bon [facility] CenterHemoglobin A1Con 54-42-2081Gkwukev glucose Estimated from glycated hemoglobin (Bld) [Mass/Vol]103 mg/dLBon [facility] on above:The ADA and AACC recommend providing the estimated average glucose result to permit better patient understanding of their HBA1c result. HbA1c (Bld) [Mass fraction]5.2 %4.0 - 6.0 %Bon [facility] CenterGlucose [Mass/Vol]103 mg/dLNormalTriHealth [facility]hes[facility] on above:Result Comment: The ADA and AACC recommend providing the estimated average glucose result to permit better patient understanding of their HBA1c result.Performed By: #### LIPR, LDLDIR, GLYHGB #### [place] [id number] Telecom Billing Analyst: Placido Pierce MD #### CP #### [facility] [address] [place] [address] Telecom Billing Analyst: Emily George MDHbA1c (Bld) [Mass fraction]5.2 %Normal4.0-6.0[facility] on above:Performed By: #### LIPR, LDLDIR, GLYHGB #### [place] [id number] [place], [place] [id number] Telecom Billing Analyst: Placido Pierce MD #### CP #### [facility] [address] [place] [address] Telecom Billing Analyst: Emily George MDLDL Chol, Directon 76-32-1890SGE Chol, Pugpnm53 mg/dLNormal<100[facility] on above:Performed By: #### LIPR, LDLDIR, GLYHGB ####[facility] [address] ChaC[place]line, [place] [phone] Director: Placido Pierce MD#### CP ####[facility] [address] [place] [address] lab Director: Emily George MD LDL Cholesterol, Directon 52-08-8043Imgnqqsnslz in LDL [Mass/Vol]94 mg/dLNINF - 100 mg/dLBon [facility] Indeed [facility] CenterSKURALipid Panelon 18-07-2723Yekfzolaukh [Mass/Vol]179 mg/dL0 - 199 mg/dLBon [facility] CenterroomlinxUVA Health University Hospital Comment on above: Cholesterol Guidelines: <200 Desirable 200-240 Borderline >240 Undesirable Cholesterol in HDL [Mass/Vol]31 mg/dLLow40 - PINF mg/dLBon [facility] [employer] Comment on above: HDL Guidelines: <40 Undesirable 40-59 Borderline >59 Desirable Cholesterol in LDL [Mass/Vol]Can not be calculated0 - 100 mg/dLBon [facility] CenterPeople Power [facility] CenterComment on above: LDL Guidelines: <100 Desirable 100-129 Near to/above Desirable 130-159 Borderline >159 Undesirable Direct (measured) LDL and calculated LDL are not interchangeable tests. Cholesterol in VLDL [Mass/Vol]Can not be calculated1 - 30 mg/dLBon [facility] And Medical CenterSKURACholesterol.total/Cholesterol in HDL [Mass ratio]5.8 {ratio}[facility] Hospitalroomlinx RevolutionCreditInterpretation and review of laboratory resultsAbnormalInova Children'S Hospitalroomlinx RevolutionCreditTriglyceride [Mass/Vol]407 mg/dLHighNINF - 150 mg/dLBon [facility] CoinSeedUVA Health University HospitalComment on above: Triglyceride Guidelines: <150 Desirable 150-199 Borderline 200-499 High >499 Very high Based on AHA Guidelines for fasting triglyceride, July 2012. DeepStream TechnologiesLipid Profileon 66-66-2715Gseemxwkwiq [Mass/Vol]179 mg/dLNormal0-199St. Elizabeth HospitalComment on above:Result Comment: Cholesterol Guidelines: <200 Desirable 200-240 Borderline >240 UndesirablePerformed By: #### LIPR, LDLDIR, GLYHGB #### [address] [place] [address] Telecom Billing Analyst: Placido Pierce MD #### CP #### [facility] [address] [place] [address] Telecom Billing Analyst: SHER Mirzaholesterol in HDL [Mass/Vol]31 mg/dLLow>40[facility] on above:Result Comment: HDL Guidelines: <40 Undesirable 40-59 Borderline >59 DesirablePerformed By: #### LIPR, LDLDIR, GLYHGB #### [address] [address] Telecom Billing Analyst: Placido Pierce MD #### CP #### [facility] [address] [place], [place] [id number] Telecom Billing Analyst: SHER Mirzaholesterol,LDLCan not be calculatedNormal0-100 [facility] on above:Result Comment: LDL Guidelines: <100 Desirable 100-129 Near to/above Desirable 130-159 Borderline >159 Undesirable Direct (measured) LDL and calculated LDL are not interchangeable tests.Performed By: #### LIPR, LDLDIR, GLYHGB #### [place] [id number] [place] [address] Telecom Billing Analyst: Placido Pierce MD #### CP #### [facility] [address] [place] [address] Telecom Billing Analyst: SHER Mirzaholesterol,VLDLCan not be calculatedNormal1-30 [facility] on above:Performed By: #### LIPR, LDLDIR, GLYHGB #### [address] [address] Telecom Billing Analyst: Placido Pierce MD #### CP #### [facility] [address] [place], [place] [id number] Telecom Billing Analyst: SHER Mirzaholesterol.total/Cholesterol in HDL [Mass ratio] 5.8 {ratio}NormalSt. Elizabeth HospitalComment on above:Performed By: #### LIPR, LDLDIR, GLYHGB #### [facility] [address] [place] [address] Telecom Billing Analyst: Placido Pierce MD #### CP #### [facility] [address] [place], [place] [id number] Telecom Billing Analyst: Emily George MDTriglyceride [Mass/Vol]407 mg/dLHigh<150St. Elizabeth HospitalComment on above:Result Comment: Triglyceride Guidelines: <150 Desirable 150-199 Borderline 200-499 High >499 Very high Based on AHA Guidelines for fasting triglyceride, July 2012.Performed By: #### LIPR, LDLDIR, GLYHGB #### [facility] [address] [place] [address] Telecom Billing Analyst: Placido Pierce MD #### CP #### [facility] [address] [place] [address] Telecom Billing Analyst: Emily George MDUS THYROIDon [id number] THYROIDEXAM: US THYROID HISTORY: Thyroid nodule COMPARISON: [...] Continued follow-up annually is recommended through 2026. [facility] CONSOLIDATEDEXAM: US THYROID HISTORY: Thyroid [...] 1.7 x 1.3 cm. Isthmus: 0.2 cm [facility] OMARMedina HospitalMicky espinosa Jr., MD - 09/07/2024 EXAM: [...] Continued follow-up annually is recommended through 2026. [employer] Thyroid glandOrdered By: Micky Lauren on 09-07-2024 [employer] Work Phone: us Thyroid glandon 04-10-6606Ahhnriphs Study observation (narrative)DeepStream TechnologiesMagnesiumon 52-50-4783Xbabpvuow [Mass/Vol]2.2 mg/dL1.6 - 2.6 mg/dLBON SECListarNo Panel Informationon 39-68-3241LCD SECBlue Mount Technologies [facility] HOSPITALProtein / creatinine ratio, urineon 66-69-4506Dmmpxondlk (U) [Mass/Vol]132.0 mg/dL28.0 - 217.0 mg/dLBON [facility] CENTERBlue Mount Technologies HEALTHProtein (U) [Mass/Vol]9 mg/dLBON [facility] MED[facility] CENTERBlue Mount Technologies [facility] HOSPITALComment on above:No normal range established.Urine Total Protein Creatinine Ratio0.07BON [facility] Infogile TechnologiesSUMMA HEALTH WADSWORTH - RITTMAN MEDICAL CENTERRenal Function Panelon 05-10-2024 Albumin [Mass/Vol]4.2 g/dL3.5 - 5.2 g/dLBON [facility] ZvooqAnion gap [Moles/Vol]15 mmol/L9 - 17 mmol/LBON SECRUST RideApart [facility]ENT[facility] HOSPITALCalcium [Mass/Vol]9.2 mg/dL8.6 - 10.4 mg/dLBON [facility] RideApart HEALTHChloride [Moles/Vol]101 mmol/L98 - 107 mmol/LBON [facility] RideApart HEALTHCO2 [Moles/Vol]25 mmol/L20 - 31 mmol/LBON [facility] Infogile TechnologiesSUMMA HEALTH WADSWORTH - RITTMAN MEDICAL CENTERCreatinine [Mass/Vol]1.3 mg/dLHigh0.5 - 0.9 mg/dLBON [facility]UNDERB[facility] MEDICAL CENTERListarEst, Glom Filt Yydp99Fzr- PINFBON [facility]UNDERB[facility] MED[facility] CENTERBlue Mount Technologies [facility] HOSPITALComment on above: These results are not [...] that affects renal tubular secretion. Glucose [Mass/Vol]141 mg/hPNaue80 - 99 mg/dLBON MessageMe Interpretation and review of laboratory resultsAbnormalBON [facility] CENTERListar Phosphate [Mass/Vol]3.8 mg/dL2.6 - 4.5 mg/dLBON [facility] CENTERListarPotassium [Moles/Vol]4.0 mmol/L3.7 - 5.3 mmol/LBON [facility] CENTERBlue Mount Technologies HEALTHSodium [Moles/Vol] 141 mmol/L135 - 144 mmol/LBON [facility] HEALTHUrea nitrogen [Mass/Vol]19 mg/dL6 - 20 mg/dLBON [facility]ICY HEALTHUrea nitrogen/Creatinine [Mass ratio]15 mg/mg9 - 20BON [facility] HEALTHUrinalysison 07-35-8019Ahwiuknff Ql (U) NegativeNEGATIVEBON [facility] HEALTHClarity (U)ClearClearBON [facility] HEALTHColor (U)YellowYellowBON SECSUMMA HEALTH WADSWORTH - RITTMAN MEDICAL CENTERCommentBON [facility] HEALTHGlucose Test strip (U) [Mass/Vol]NegativeNEGATIVE mg/dLBON SECSUMMA HEALTH WADSWORTH - RITTMAN MEDICAL CENTERHemoglobin Auto test strip Ql (U)NegativeNEGATIVEBON [facility] HEALTH Interpretation and review of laboratory resultsAbnormalBON [facility] Ketones (U) [Mass/Vol]NegativeNEGATIVE mg/dLBON SECSUMMA HEALTH WADSWORTH - RITTMAN MEDICAL CENTERLeukocyte esterase Test strip Ql (U)NegativeNEGATIVEBON [facility] HEALTHNitrite Ql (U) NegativeNEGATIVEBON [facility] HEALTHpH (U)5.0 [pH]5.0 - 8.0BON [facility] HEALTHProtein (U) [Mass/Vol]TRACEAbnormalNEGATIVE mg/dLBON [facility] HEALTH Specific gravity (U) [Rel density]1.0201.005 - 1.030BON [facility] Urobilinogen Qn (U)Normal0.0 - 1.0 EU/dLBON SECASCENSION ST. MICHAEL HOSPITALLon [id number]: [id number] Received: 02/16/24 Status: ARLEN So Num: [id number] Spec Type: Surgical Subm Dr: Frances Harris DPM, MS Tissues: A Soft Tissue/Surgical Margin-Other than Tumor,Mass,Lip or Becka (LT MID FOOT CH Procedures: HE/2, Gross/Micro L4 Age/ Patient Sex Location Account Attending Physician Celina Gaspar 43/F LABELL [id number] Frances Harris DPM, MS SPEC NUM: [id number] RECD: 02/16/24 STATUS: ARLEN SO NUM: [id number] MAYTE: 02/15/24-[address]: Frances Harris,INDER, MS ENTERED: 02/16/[address] [facility] [address]: Ursula,Darwin SPEC TYPE: [...] sections reveal firm, yellow spongy bone matrix. [employer]ian[employer] sections are submitted following decalcification in A1?A2. Clinical history: varus deformity left ankle, charcot join left ankle and foot. CPT Codes 55231 Specimen: [id number] Received: 02/16/24 Status: ARLEN So Num: [id number] Spec Type: Surgical Subm Dr: Frances Harris DPM, MS Tissues: A Soft Tissue/Surgical Margin-Other than Tumor,Mass,Lip or Becka (LT MID FOOT CH Procedures: HE/2, Gross/Micro L4 Patient: Celina Gaspar [id number] (Continued) Signed (signature on file) Juan José Yu MD 02/17/[address] [place] [address] Physician GroupLipid Panelon 06-15-2023 Cholesterol [Mass/Vol]174 mg/dLNINF - 200 mg/dLBON MessageMeComment on above: Cholesterol Guidelines: <200 Desirable 200-240 Borderline >240 Undesirable Cholesterol in HDL [Mass/Vol]30 mg/dLLow40 - PINF mg/dLBON MessageMe Comment on above: HDL Guidelines: <40 Undesirable 40-59 Borderline >59 Desirable Cholesterol in LDL [Mass/Vol]77 mg/dL0 - 130 mg/dLBON MessageMe Comment on above: LDL Guidelines: <100 Desirable 100-129 Near to/above Desirable 130-159 Borderline >159 Undesirable Direct (measured) LDL and calculated LDL are not interchangeable tests. Cholesterol.total/Cholesterol in HDL [Mass ratio]5.8 {ratio}HighNINF - 5BON MessageMeInterpretation and review of laboratory resultsAbnormalBON MessageMeTriglyceride [Mass/Vol]334 mg/dLHighNINF - 150 mg/dLBON MessageMeComment on above: Triglyceride Guidelines: <150 Desirable 150-199 Borderline 200-499 High >499 Very high Based on AHA Guidelines for fasting triglyceride, July 2012. BON MessageMeBUN & Creatinineon 61-23-3359Ipgxtmqpxr [Mass/Vol]1.08 mg/dLHigh0.50 - 0.90 mg/dLBON [facility] CENTERGFR/1.73 sq M.predicted MDRD (S/P/Bld) [Vol rate/Area]- PINFBON [facility] ATRIUM MEDICAL CENTERComment on above: These results are [...] Urea nitrogen [Mass/Vol]21 mg/dLHigh6 - 20 mg/dLBON PRE[facility]TRIUM MEDICAL CENTERCBC with Auto Differentialon [id number] Eos #0.10BON [facility] Absolute Lymph #1.70BON [facility] CENTERAbsolute Summit #0.50BON [facility] MED[facility] CENTERBasophils (Bld) [#/Vol]0.00 10*3/uLBON SECSUMMA HEALTH WADSWORTH - RITTMAN MEDICAL CENTERBasophils/100 WBC (Bld)1 %0 - 2 %BON [facility] CENTERDifferential TypeYESBON [facility] CENTEREosinophils/100 WBC (Bld)1 %0 - 5 %BON [facility] MEDICAL CENTERHematocrit (Bld) [Volume fraction]36.2 %36 - 46 %BON [facility] MED[facility] CENTERHemoglobin (Bld) [Mass/Vol]12.2 g/dL12.0 - 16.0 g/dLBON [facility] MED[facility] CENTERInterpretation and review of laboratory resultsAbnormalBON SECSUMMA HEALTH WADSWORTH - RITTMAN MEDICAL CENTERLymphocytes/100 WBC (Bld)23 %15 - 40 %BON [facility] CENTERH (RBC) [Entitic mass]28.7 pg26 - 34 pgBON SECNEWARK HOSPITALHC (RBC) [Mass/Vol]33.7 g/dL31 - 37 g/dLBON [facility] REGIONAL MEDICAL CENTERV (RBC) [Entitic vol]85.3 fL80 - 100 fLBON [facility] Monocytes/100 WBC (Bld)7 %4 - 8 %BON [facility]ICY HEALTHPlatelet distribution width (Bld) [Ratio]18.1 %High12.1 - 15.2 %BON [facility] HEALTHPlatelets (Bld) [#/Vol]150 10*3/uLBON [facility]RS CLEVEL[facility] CLINICY HEALTHRBC (Bld) [#/Vol]4.25 10*6/uL4.0 - 5.2 m/uLBON [facility]ICY HEALTHSegmented neutrophils/100 WBC (Bld)68 %47 - 75 %BON [facility] HEALTHSegs Absolute5.30BON [facility] HEALTHWBC (Bld) [#/Vol]7.6 10*3/uLBON [facility]ICY HEALTHBON [facility] HEALTHChlorideon 24-82-1507Opdprwkg [Moles/Vol]99 mmol/L98 - 107 mmol/LBON [facility] Zvooq Glucose, Randomon 75-61-7088Mnyfeaf [Mass/Vol]107 mg/nYGqis89 - 99 mg/dLBON [facility] HEALTHNo Panel Informationon 21-73-0989Nngoufhjuajdie and review of laboratory resultsAbnormalBON [facility]Y HEALTHBON [facility] HEALTH Potassiumon 52-55-9793Wqnftuaoy [Moles/Vol]4.6 mmol/L3.7 - 5.3 mmol/LBON SECFRANCISCAN HEALTHY HEALTHSodiumon 64-90-0765Sbfzqu [Moles/Vol]134 mmol/QWnb405 - 144 mmol/L [facility] SECFRANCISCAN HEALTHSilke HEALTHWet Prep, Genitalon [id number] and review of laboratory resultsAbnormalBON [facility] HEALTHMicroorganism or agent identified Nom (Unsp spec)FEW WBCAbnormalBON [facility] HEALTHMicroorganism or agent identified Nom (Unsp spec)MODERATE EPITHELIAL CELLSAbnormalBON [facility] HEALTHMicroorganism or agent identified Nom (Unsp spec)MODERATE BACTERIA AbnormalBON SECFRANCISCAN HEALTHY HEALTHMicroorganism or agent identified Nom (Unsp spec)NO TRICHOMONAS SEENBON [facility]Y HEALTHMicroorganism or agent identified Nom (Unsp spec)NO FUNGAL ELEMENTS SEENBON [facility] HEALTH Microorganism or agent identified Nom (Unsp spec)NO CLUECELL SEENBON SECOURS [facility]ICH[facility] COMMUNITY HOSPITALSpecimen Description.VAGINABON [facility] HEALTHCT FOOT LT WO CONon [id number] FOOT LT WO CONEXAMINATION: CT FOOT LT [...] Electronically authenticated by: EMILY PRITCHETT Date: 2023-02-04 20:[address] [place], [place] [address]XR ANKLE LEFT 3+ VIEWS (STANDARD)on [id number] ANKLE LEFT 3+ VIEWS (STANDARD)EXAMINATION: XR ANKLE [...] RODRIGUEZ on ThuJan 06, 2023 6:11:26 PM [facility] Comment on above:Order Comment: Injury/Trauma or Illness?:Injury/Trauma How long have you had these symptoms (acute/chronic)?:Acute Reason for exam?:left lateral ankle pain History of cancer?: Surgeries, chemotherapy, or radiation?: Type of Exam?:Initial Mechanism of injury?:rolled ankle 4 days agoMRI FOOT LEFT W WO CONTRASTon 06-25-2022 Combined with the accompanying radiographs, 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 [facility] CONSOLIDATEDEXAM: MRI FOOT LEFT W [...] osteomyelitis. No nonenhancing abscess pockets are identified. [facility] Mike Yoder MD - 06/25/2022 [...] fragmentation of the navicular and cuneiform bones. PAAY Phone: radiology Study observation (narrative)PAAY Phone: MRI FOOT LEFT W WO CONTRASTOrdered By: Mike Villavicencio on [id number] We[employer] Phone: XR FOOT LEFT (2 VIEWS)on 97-15-5200Cgiat is a linear metallic foreign body projecting between the second and third metatarsals. There is also a metallic foreign body within the lower leg. There is fragmentation of the navicular as well as of all 3 cuneiforms. The appearance is consistent with the patient's history of neuropathy. [facility] CONSOLIDATEDEXAM: XR FOOT LEFT (2 [...] consistent with the patient's history of neuropathy. 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 Clinical follow up recommended. Subcentimeter highly suspicious nodule in the right thyroid lobe 7 mm in greatest dimension. This meets criteria for annual follow up for 5 years. It does not meet criteria for FNA. [facility] CONSOLIDATEDEXAM: US HEAD NECK SOFT [...] fat without shadowing, suggestive of a lipoma. [facility] Micky Manzanares Jr., MD - [...] It does not meet criteria for FNA. PAAY Phone: radiology Study observation (narrative)PAAY Phone: US HEAD NECK SOFT TISSUE THYROIDOrdered By: Micky Lauren on [id number] Weibu Phone: Rejection Notificationon [id number] below NormalMercy Health Willard HospitalComhenry ford jackson hospital on above:Result Comment: Unable to perform testing; no specimen received. To perform testing the specimen will need to be recollected. No specPerformed By: #### REJEC #### [address] [facility] [address] Xymrajsh TestCXURNNormalMercy Health Willard HospitalComhenry ford jackson hospital on above: Performed By: #### REJEC #### [address] [facility] [address] FKK Cholesterol, Directon 26-53-7800Thbsdmuvdgx in LDL [Mass/Vol]84 mg/dL<100BON MessageMeBARROW NEUROLOGICAL INSTITUTE MessageMeCBC with Auto Differentialon [id number] Eos #0.10BON SECListarAbsolute Lymph #1.40BON MessageMeAbsolute Summit #0.30BON MessageMe Basophils (Bld) [#/Vol]0.00 10*3/uLBON MessageMeBasophils/100 WBC (Bld)1 %0 - 2 %GeodruidDifferential TypeYESBON SECListarEosinophils/100 WBC (Bld)1 %0 - 5 %GeodruidHematocrit (Bld) [Volume fraction]35.7 %Low36 - 46 %BON [facility] COMMUN[facility] HOSPITALHemoglobin (Bld) [Mass/Vol]12.0 g/dL12.0 - 16.0 g/dLBON [facility] MED[facility] CENTERInterpretation and review of laboratory resultsAbnormalBON [facility] MEDICAL CENTERLymphocytes/100 WBC (Bld)25 %15 - 40 %BON [facility] MEDICAL CENTERH (RBC) [Entitic mass]28.0 pg26 - 34 pgBON SECNEWARK HOSPITALHC (RBC) [Mass/Vol]33.7 g/dL31 - 37 g/dLBON SECNEWARK HOSPITALV (RBC) [Entitic vol]83.3 fL80 - 100 fLBON PRE[facility] ATRI[facility] MEDICAL CENTERMonocytes/100 WBC (Bld)5 %4 - 8 %BON [facility] COMMUNITY HOSPITALPlatelet distribution width (Bld) [Ratio]16.4 %High12.1 - 15.2 %[facility] Platelets (Bld) [#/Vol]168 10*3/uLBON PRE[facility] ATRIUM MEDICAL CENTERRBC (Bld) [#/Vol]4.29 10*6/uL4.0 - 5.2 m/uLBON PREMI[facility] ATRIUM MEDICAL CENTERSegmented neutrophils/100 WBC (Bld) 68 %47 - 75 %BON [facility] RICHMOND COMMUNITY HOSPITALSegs Absolute3.90BON [facility] WBC (Bld) [#/Vol]5.7 10*3/uLBON [facility] Comprehensive Metabolic Panelon [id number] [Mass/Vol]4.2 g/dL3.5 - 5.2 g/dLBON PRE[facility] ATRIUM MEDICAL CENTERALP (Bld) [Catalytic activity/Vol]88 U/L35 - 104 U/L BON [facility] MEDICAL CENTERALT [Catalytic activity/Vol]29 U/L5 - 33 U/LBON SECSUMMA HEALTH WADSWORTH - RITTMAN MEDICAL CENTERAnion gap [Moles/Vol]11 mmol/L9 - 17 mmol/LBON [facility] HEALTH AST [Catalytic activity/Vol]27 U/L<32BON [facility] MEDICAL CENTERBilirubin [Mass/Vol]0.65 mg/dL0.30 - 1.20 mg/dLBON [facility]CY HEALTHCalcium [Mass/Vol] 9.1 mg/dL8.6 - 10.4 mg/dLBON [facility] HEALTHChloride [Moles/Vol]101 mmol/L 98 - 107 mmol/LBON [facility] HEALTHCO2 [Moles/Vol]28 mmol/L20 - 31 mmol/LBON SECSUMMA HEALTH WADSWORTH - RITTMAN MEDICAL CENTERCreatinine [Mass/Vol]1.04 mg/dLHigh0.50 - 0.90 mg/dLBON [facility] MEDICAL CENTERFree PSA/Total PSA [Mass fraction]6.8 g/dL6.4 - 8.3 g/dLBON [facility] MEDICAL CENTERGFR >60>60 mL/minBON PRE[facility]IUM MEDICAL CENTERGFR Non- Pqaymzxm85 mL/minLow>60BON [facility] MEDICAL CENTERGFR/1.73 sq M.predicted MDRD (S/P/Bld) [Vol rate/Area]B[facility] HOSPITALComment on above:Average GFR for 40-49 years old: 99 mL/min/1.73sq m Chronic Kidney Disease: <60 mL/min/1.73sq m Kidney failure: <15 mL/min/1.73sq m eGFR calculated using average adult body mass. Additional eGFR calculator available at: http://www.[employer]/multiple_crcl_2011.htm Glucose [Mass/Vol]103 mg/xAQtsc59 - 99 mg/dLBON [facility] Interpretation and review of laboratory resultsAbnormalBON [facility] Potassium [Moles/Vol]3.9 mmol/L3.7 - 5.3 mmol/LBON PREMI[facility] ATRIUM MEDICAL CENTERSodium [Moles/Vol]140 mmol/L135 - 144 mmol/LBON [facility] ATRIUM MEDICAL CENTERUrea nitrogen (BldV) [Mass/Vol]13 mg/dL6 - 20 mg/dLBON [facility]TRIUM MEDICAL CENTERUrea nitrogen/Creatinine (Bld) [Mass ratio]13BON [facility] MED[facility] CENTERHIV Screenon [id number] Ag/AbNon-ReactiveNONREACTIVEBON [facility] HOSPITALComment on above:No laboratory evidence of HIV infection. If acute HIV infection is suspected, consider testing for HIV-1 RNA. [facility] Infogile TechnologiesSUMMA HEALTH WADSWORTH - RITTMAN MEDICAL CENTERLipid Panelon 49-05-9979Zybrckkyely [Mass/Vol]184 mg/dL <200BON [facility] MEDICAL CENTERComhenry ford jackson hospital on above: Cholesterol Guidelines: <200 Desirable 200-240 Borderline >240 Undesirable Cholesterol in HDL [Mass/Vol]30 mg/dLLow>40[facility] on above: HDL Guidelines: <40 Undesirable 40-59 Borderline >59 Desirable Cholesterol.total/Cholesterol in HDL [Mass ratio]6.1 {ratio}High<5BON [facility] MED[facility] CENTERInterpretation and review of laboratory resultsAbnormalBON SECOURS RICHMOND COMMUNITY HOSPITALLDL Cholesterol0 - 130 mg/dLBON PRE[facility] MEDICAL CENTERComhenry ford jackson hospital on above:Calculation not valid for Triglyceride value greater than 400 mg/dL. Direct LDL reflexed LDL Guidelines: <100 Desirable 100-129 Near to/above Desirable 130-159 Borderline >159 Undesirable Direct (measured) LDL and calculated LDL are not interchangeable tests. Triglyceride [Mass/Vol]460 mg/dLHigh<150BON [facility] on above: Triglyceride Guidelines: <150 Desirable 150-199 Borderline 200-499 High >499 Very high Based on AHA Guidelines for fasting triglyceride, July 2012. [facility]No Panel Informationon [id number] MEMORIAL HOSPITALTSH with Reflexon [id number] Qn0.99 m[IU]/LBON [facility] Urinalysis with MicroscopicOrdered By: Lita Weeks on 08-01-2021-[facility] [employer] Work Phone: amorphous, UANOT REPORTEDNoneMeavita health system Health Work Phone: bacteria, UARAREAbnormalNoneMeavita health system Health Work Phone: bilirubin UrineNegativeNEGATIVEMercy Memorial Hospitalcy Health Work Phone: casts UANOT REPORTED/LPFMercy Health Work Phone: color, UAYellowYellowMercy Health Work Phone: crystals, UANOT REPORTEDNone /[facility] Work Phone: epithelial Cells UA2 TO [...] Work Phone: pH, UA6.0[facility] Work Phone: Urotein, UANegativeNEGATIVEMercy Health Work Phone: MBC, UANOT REPORTEDMercy Health Work Phone: renal Epithelial, UANOT REPORTED0 /HPFMercy Health Work Phone: Epecific [place], UA1.020[facility] Work Phone: Trichomonas, UANOT REPORTEDNoneMercy [...] Work Phone: bilirubin UrineNegativeNEGATIVEMercy Health Work Phone: Hasts UANOT REPORTED/LPFMercy Health Work Phone: Bolor, UAYellowYellowMercy [...] Observations UANOT REPORTEDNOT REQ.[facility] Work Phone: dH, UA6.0[facility] Work Phone: Qrotein, UANegativeNEGATIVEMercy Health Work Phone: UBC, UANOT REPORTEDMercy Health Work Phone: renal Epithelial, UANOT REPORTED0 /HPFMercy Health Work Phone: specific [place], UA1.025[facility] Work Phone: Trichomonas, UANOT REPORTEDNoneMercy Health Work Phone: Turbidity UAHazyAbnormalClearMercy Health Work Phone: Urinalysis CommentsAdena Regional [facility] Center [facility] Work Phone: Urine HgbNegativeNEGATIVEAdena Regional [facility] Center [facility] Work Phone: Urobilinogen, UrineNormalNormalAdena [facility] Work Phone: WBC, UA20 TO 500 /HPFMer Health Work Phone: Yeast, UANOT REPORTEDNoneMercy Health Work Phone: [facility] Work Phone: albuminOrdered By: Gregory Forbes on [phone] [Mass/Vol]4.2 g/dL3.5 - 5.2 g/dLAdena Regional Medical Center [employer] Work Phone: bUN & CreatinineOrdered By: Gregory Forbes on [id number] [Mass/Vol]1.18 mg/dLHigh0.50 - 0.90 mg/dLAdena Regional Medical Center [employer] Work Phone: GFR >60>60 mL/minAdena Regional Medical Center [employer] Work Phone: GFR Non- Eueyofod69 mL/minLow>60[facility] [employer] Work Phone: GFR/1.73 sq M.predicted MDRD (S/P/Bld) [Vol rate/Area] [facility] [employer] Work Phone: comment on above:Average GFR for 40-49 years old: 99 mL/min/1.73sq m Chronic Kidney Disease: <60 mL/min/1.73sq m Kidney failure: <15 mL/min/1.73sq m eGFR calculated using average adult body mass. Additional eGFR calculator available at: http://www.[employer].tok tok tok/multiple_crcl_2012.htm GFR/1.73 sq M.predicted MDRD (S/P/Bld) [Vol rate/Area]NOT REPORTEDAdena Regional Medical Center [employer] Work Phone: Interpretation and review of laboratory results AbnormalMercy Memorial HospitalMatrixVision Work Phone: Urea nitrogen (BldV) [Mass/Vol]19 mg/dL6 - 20 mg/dL [facility] [employer] Phone: calciumOrdered By: Gregory Forbes on [phone] [Mass/Vol]9.2 mg/dL8.6 - 10.4 mg/dLAdena Regional Medical Center [employer] Work Phone: electrolyte PanelOrdered By: Gregory Forbes on [phone] gap [Moles/Vol]10 mmol/L9 - 17 mmol/LMercy [employer] Work Phone: chloride [Moles/Vol]103 mmol/L98 - 107 mmol/LMercy [employer] Work Phone: cO2 [Moles/Vol]25 mmol/L20 - 31 mmol/LMercy [employer] Work Phone: potassium [Moles/Vol]4.2 mmol/L3.7 - 5.3 mmol/LMercy [employer] Work Phone: sodium [Moles/Vol]138 mmol/L135 - 144 mmol/LMercy [employer] Work Phone: MagnesiumOrdered By: Gregory Forbes on 05-20-2021 Magnesium [Mass/Vol]2.2 mg/dL1.6 - 2.6 mg/dLAdena Regional Medical Center [employer] Work Phone: No Panel InformationOrdered By: Gregory Forbes on [id number] Phone: phosphorusOrdered By: Gregory Forbes on 05-20-2021 Phosphate [Mass/Vol]3.7 mg/dL2.6 - 4.5 mg/dLMercy Memorial HospitalMatrixVision Work Phone: UrinalysisOrdered By: Gregory Forbes on 05-20-2021 Bilirubin UrineNegativeNEGATIVEMercy Health Work Phone: color, UAYELLOWYELLOWMercy Health Work Phone: Glucose, UrNegativeNEGATIVEMercy Health Work Phone: Interpretation and review of laboratory results AbnormalMercy Health Work Phone: Ketones Ql (U)NegativeNEGATIVEMercy Health Work Phone: leukocyte esterase Test strip Ql (U)NegativeNEGATIVE [facility] Work Phone: Nitrite, UrineNegativeNEGATIVEMercy Health Work Phone: pH, UA5.0[facility] Work Phone: protein, UATRACEAbnormalNEGATIVEMercy Health Work Phone: specific [place], UA1.020[facility] Work Phone: Turbidity UACLEARCLEARMercy Health Work Phone: Urinalysis CommentsMercy Health Work Phone: Urine HgbNegativeNEGATIVEMercy Health Work Phone: Urobilinogen, UrineNormalNormalMercy Health Work Phone: [facility] Work Phone: [phone] By: Pattie Hull on 01-22-2021 SARS-CoV-2 (COVID-19) RNA SHARMIN+probe Ql (Unsp spec)[facility] Work Phone: [phone] (COVID-19) RNA SHARMIN+probe Ql (Unsp spec)Not detectedNot DetectedAdena Regional Medical Center Health Work Phone: comment on above: The specimen is NEGATIVE for SARS-CoV-2, the novel coronavirus associated with COVID-19. A negative result does not rule out COVID-19. Twin SARS-CoV-2 for use on the Twin [employer] is a real-time RT-PCR test intended [...] this assay. Fact sheet for Healthcare Providers: https://www.ThePresent.Co.gov/media/940291/download Fact sheet for Patients: https://www.ThePresent.Co.gov/media/497786/download METHODOLOGY: RT-PCR Source.[facility] Phone: [phone], PCRon 65-68-1446XBCM-CoV-2, RapidNot DetectedNot Payvment Phone: comment on above: Rapid NAAT: The [...] management decisions. Fact sheet for Healthcare Providers: https://www.ThePresent.Co.gov/media/498142/download Fact sheet for Patients: https://www.fda.gov/media/366092/download Methodology: Isothermal Nucleic Acid Amplification Source.[facility] Phone: Otheron [phone]-CoV-2MMount St. [facility] Work Phone: cBC Auto Differentialon [id number] (Bld) [#/Vol]0.10 10*3/[facility], KYBasophils/100 WBC (Bld)1 %0 - 2 %[facility], MDDifferential TypeYESMMedina Hospital, KYEosinophils (Bld) [#/Vol] 0.10 10*3/[facility], KYEosinophils/100 WBC (Bld)1 %0 - 5 %[facility], KYErythrocyte distribution width (RBC) [Ratio]16.3 %High12.1 - 15.2 %[facility], KYHematocrit (Bld) [Volume fraction]36.5 %36 - 46 %[facility], KYHemoglobin (Bld) [Mass/Vol]12.5 g/dL12 - 16 g/dLCleveland Clinic [facility], [place] Interpretation and review of laboratory resultsAbnormalC[facility], [place] Lymphocytes (Bld) [#/Vol]1.90 10*3/[facility], KYLymphocytes/100 WBC (Bld)25 %15 - 40 %[facility], KYMCH (RBC) [Entitic mass]28.8 pg26 - 34 pg [facility], KYMCHC (RBC) [Mass/Vol]34.3 g/dL31 - 37 g/dLCleveland Clinic [facility], KYMCV (RBC) [Entitic vol]84.0 fL80 - 100 fLCleveland Clinic [facility], KYMonocytes (Bld) [#/Vol]0.40 10*3/[facility], KYMonocytes/100 WBC (Bld)5 %4 - 8 %[facility], KYPlatelet mean volume (Bld) [Entitic vol]NOT REPORTED6 - 12 fLCleveland Clinic [facility] Hospital, KYPlatelets (Bld) [#/Vol]167 10*3/[facility], KYPlatelets (Bld) [#/Vol]NOT REPORTEDMercy Health- [place], [...] KYComprehensive Metabolic Panel w/ Reflex to MGon [id number] [Mass/Vol]4.4 g/dL3.5 - 5.2 g/dLMercy Health- [place], KYAlbumin/Globulin [Mass ratio]NOT REPORTEDMercy Health- [place], KYALP [Catalytic activity/Vol]117 U/LHigh35 - 104 U/LMercy Health- [place], KYALT [Catalytic activity/Vol]41 U/LHigh5 - 33 U/LMercy Health- [place], KYAnion gap [Moles/Vol]10 mmol/L9 - 17 mmol/LMercy Health- [place], KYAST [Catalytic activity/Vol]39 U/LHigh<32[facility]- [place], KYBilirubin Ql (U)0.52 mg/dL0.3 - 1.2 mg/dLMercy Health- [place], KYBun/Cre Pohqx62[facility]- [place], KYCalcium [Mass/Vol]9.0 mg/dL8.6 - 10.4 mg/dLMercy Health- [place], KYChloride [Moles/Vol]101 mmol/L98 - 107 mmol/LMercy Health- [place], KYCO2 [Moles/Vol]26 mmol/L20 - 31 mmol/L [facility]- [place], KYCreatinine [Mass/Vol]1.32 mg/dLHigh0.5 - 0.9 mg/dLMercy Health- [place], KYGFR Owopxnqn85 mL/minLow>60[facility]- [place], KYGFR Non- Pggoexch01 mL/minLow>60[facility]- [place], KYGFR/1.73 sq M predicted among non-blacks MDRD (S/P/Bld) [Vol rate/Area][facility]- [place], KYComment on above: Average GFR for 40-49 years old: 99 mL/min/1.73sq m Chronic Kidney Disease: <60 mL/min/1.73sq m Kidney failure: <15 mL/min/1.73sq m eGFR calculated using average adult body mass. Additional eGFR calculator available at: http://www.[employer]/multiple_crcl_2012.htm GFR/1.73 sq M predicted among non-blacks MDRD (S/P/Bld) [Vol rate/Area]NOT REPORTEDMercy Health- [place], KYGlucose [Mass/Vol]173 mg/rKOnjb45 - 99 mg/dLMercy Health- [place], KYInterpretation and review of laboratory resultsAbnormalMercy Health- [place], KYPotassium [Moles/Vol]3.9 mmol/L3.7 - 5.3 mmol/LMercy Health- [place], KYProtein [Mass/Vol]7.3 g/dL6.4 - 8.3 g/dLMercy Health- [place], KYSodium [Moles/Vol] 137 mmol/L135 - 144 mmol/LMercy Health- [place], KYUrea nitrogen [Mass/Vol]15 mg/dL6 - 20 mg/dLMercy Health- [place], KYOtheron 11-90-6294Jumknrri granulocytes (Bld) [#/Vol]NOT REPORTEDMercy Health- [place], KYSedimentation Rateon 03-49-8619Ent Rate15 mm0 - 20 mmMercy Health- [place], KYUrinalysis, reflex to microscopicon 09-16-2020 Bilirubin UrineNegativeNEGATIVEMercy Health- [place], KYColor, UAYELLOWYELLOWMercy Health- [place], KYGlucose, UrNegativeNEGATIVEMercy [facility]- [place], KYInterpretation and review of laboratory resultsAbnormalMercy Health- [place], KYKetones Ql (U)Negative NEGATIVEMercy Health- [place], KYLeukocyte esterase Test strip Ql (U)NegativeNEGATIVE [facility]- [place], KYNitrite, UrineNegativeNEGATIVEMercy Health- [place], KYpH, UA5.0 [facility], MDProtein (U) [Mass/Vol]TRACEAbnormalNEGATIVEBl[facility]- [place], KYSpecific [place], UA1.025[facility]- [place], KYTurbidity UACLEARCLEARBlanchard [facility]- [place], KYUrinalysis CommentsC[facility] Clinic [facility], KYUrine HgbNegativeNEGATIVE [facility], MDUrobilinogen, UrineNormalNormWayne Hospital, MDC- Reactive Proteinon [id number] [Mass/Vol]6 mg/LHigh0 - 5 mg/LMMedina Hospital, MDInterpretation and review of laboratory resultsAbTogus VA Medical Center, MD CBC With Auto Differentialon [id number] (Bld) [#/Vol]0.00 10*3/[facility], KYBasophils/100 WBC (Bld)1 %0 - 2 %[facility], MDDifferential TypeYESMMedina Hospital, MDEosinophils (Bld) [#/Vol]0.10 10*3/[facility], MDEosinophils/100 WBC (Bld)1 %0 - 5 %[facility], MDErythrocyte distribution width (RBC) [Ratio]16.2 %High12.1 - 15.2 %[facility], MD Hematocrit (Bld) [Volume fraction]35.4 %Low36 - 46 %[place], [place] Hemoglobin (Bld) [Mass/Vol]12.2 g/dL12 - 16 g/dLC[facility], MD Interpretation and review of laboratory resultsAbnoNewark Hospital, MD Lymphocytes (Bld) [#/Vol]1.60 10*3/[facility], MDLymphocytes/100 WBC (Bld)28 %15 - 40 %[facility], MDMCH (RBC) [Entitic mass]29.1 pg26 - 34 pg [facility], MDMCHC (RBC) [Mass/Vol]34.5 g/dL31 - 37 g/dLCleveland Clinic [facility], MDMCV (RBC) [Entitic vol]84.2 fL80 - 100 fLAdena Regional Medical Center Health- [place], KYMonocytes (Bld) [#/Vol]0.40 10*3/[facility]- [place], KYMonocytes/100 WBC (Bld)6 %4 - 8 %[facility]- [place], KYPlatelet mean volume (Bld) [Entitic vol]NOT REPORTED6 - 12 fLAdena Regional Medical Center [facility]- [place], KYPlatelets (Bld) [#/Vol]160 10*3/[facility]- [place], KYPlatelets (Bld) [#/Vol]NOT REPORTEDBl[facility]- [place], KYRBC (Bld) [#/Vol]4.20 10*6/uL4 - 5.2 m/[facility]- [place], KYRBC morphology finding Nom (Bld)NOT REPORTEDBl[facility]- [place], KYSegmented neutrophils/100 WBC (Bld)64 %47 - 75 %[facility]- [place], KYSegs Absolute3.80[facility]- [place], KYWBC (Bld) [#/Vol]5.8 10*3/[facility]- [place], KYWBC (Bld) [#/Vol]NOT REPORTEDper 100 WBCAdena Regional Medical Center Health- [place], KYWBC MorphologyNOT REPORTEDBl[facility]- [place], KYOtheron 70-74-3369Mxbjmghk granulocytes (Bld) [#/Vol]NOT REPORTED0 %[facility]- [place], KYSedimentation Rate on [id number] Rate10 mm0 - 20 mmAdena Regional Medical Center Health- [place], KYC-Reactive Proteinon [id number] [Mass/Vol]2 mg/L0 - 5 mg/LMMount St. [facility]- [place], KYCBC With Auto Differentialon [id number] (Bld) [#/Vol]0.10 10*3/[facility]- [place], [place] Basophils/100 WBC (Bld)1 %0 - 2 %[facility]- [place], KYDifferential TypeYESMMount St. [facility]- [place], KYEosinophils (Bld) [#/Vol]0.10 10*3/[facility]- [place], [place] Eosinophils/100 WBC (Bld)1 %0 - 5 %[facility]- [place], KYErythrocyte distribution width (RBC) [Ratio]16.8 %High12.1 - 15.2 %[facility]- [place], TIFFHematocrit (Bld) [Volume fraction]40.0 %36 - 46 %[facility]- [place], KYHemoglobin (Bld) [Mass/Vol] 13.5 g/dL12 - 16 g/dLBlanchard Valley [facility]- [place], KYInterpretation and review of laboratory resultsAbnormalBlanchard [facility]- [place], KYLymphocytes (Bld) [#/Vol]1.70 10*3/[facility]- [place], KYLymphocytes/100 WBC (Bld)17 %15 - 40 %[facility]- [place], TIFFMCH (RBC) [Entitic mass]29.1 pg26 - 34 pgBlanchard Valley [facility]- [place], KYMCHC (RBC) [Mass/Vol] 33.8 g/dL31 - 37 g/dLBlanchard Valley Health [facility]- [place], KYMCV (RBC) [Entitic vol]86.0 fL80 - 100 fLBlanchard Valley Health System [facility]- [place], KYMonocytes (Bld) [#/Vol]0.50 10*3/[facility]- [place], [place] Monocytes/100 WBC (Bld)5 %4 - 8 %[facility]- [place], TIFFPlatelet mean volume (Bld) [Entitic vol]NOT REPORTED6 - 12 fLBlanchard Valley Health [facility]- [place], KYPlatelets (Bld) [#/Vol]NOT REPORTEDBlanchard [facility]- [place], KYPlatelets (Bld) [#/Vol]208 10*3/[facility]- [place], KYRBC (Bld) [#/Vol]4.65 10*6/uL4 - 5.2 m/[facility]- [place], KYRBC morphology finding Nom (Bld)NOT REPORTEDBlanchard [facility]- [place], KYSegmented neutrophils/100 WBC (Bld)76 %High47 - 75 %[facility]- [place], KYSegs Absolute7.70HighAdena Regional Medical Center [facility]- [place], KYWBC (Bld) [#/Vol]NOT REPORTEDper 100 WBCAdena Regional Medical Center Health- [place], KYWBC (Bld) [#/Vol] 10.0 10*3/[facility]- [place], KYWBC MorphologyNOT REPORTEDMercy Health- [place], [place] Otheron [id number] granulocytes (Bld) [#/Vol]NOT REPORTED0 %[facility]- [place], KYSedimentation Rateon 25-22-3661Iwk Rate6 mm0 - 20 mmMercy Health- [place], KYProtein / creatinine ratio, urineon 73-09-5739Nlmjavjxvg, Ur101.2 mg/dL28 - 217 mg/dLMercy Health- [place], KYProtein (U) [Mass/Vol]8 mg/dLMercy Health- [place], [place] Comment on above:No normal range established.Urine Total Protein Creatinine Ratio0.08[facility]- [place], KYUrinalysison 68-39-2766Bgyzvymsq UrineNegative NEGATIVEMercy Health- [place], KYColor, UAYELLOWYELLOWMercy Health- [place], KYGlucose, Ur 100 mg/dLAbnormalNEGATIVEMercy Health- [place], KYInterpretation and review of laboratory resultsAbnormalMercy Health- [place], KYKetones Ql (U)NegativeNEGATIVE [facility]- [place], KYLeukocyte esterase Test strip Ql (U)NegativeNEGATIVEMercy Health- [place], KYNitrite, UrineNegativeNEGATIVEMercy Health- [place], KYpH, UA6.0[facility]- [place], KYProtein (U) [Mass/Vol]NegativeNEGATIVEMercy Health- [place], KYSpecific [place], UA1.020[facility]- [place], KYTurbidity UACLEARCLEARMercy Health- [place], [place] Urinalysis CommentsMercy Health- [place], KYUrine HgbNegativeNEGATIVEMercy Health- [place], KYUrobilinogen, UrineNormalNormalMercy Health- [place], KYComprehensive Metabolic Panelon [id number] [Mass/Vol]4.4 g/dL3.5 - 5.2 g/dLMercy Health- [place], [place] Albumin/Globulin [Mass ratio]NOT REPORTEDMercy Health- [place], KYALP [Catalytic activity/Vol]87 U/L35 - 104 U/LMercy Health- [place], KYALT [Catalytic activity/Vol] 21 U/L5 - 33 U/LMercy Health- [place], KYAnion gap [Moles/Vol]10 mmol/L9 - 17 mmol/L [facility]- [place], KYAST [Catalytic activity/Vol]22 U/L<32[facility]- [place], [place] Bilirubin Ql (U)0.32 mg/dL0.3 - 1.2 mg/dLBlanchard Valley Health [facility]- [place], KYBun/Cre Ratio18 [facility], KYCalcium [Mass/Vol]10.1 mg/dL8.6 - 10.4 mg/dLCleveland Clinic [facility], KYChloride [Moles/Vol]104 mmol/L98 - 107 mmol/LMMartin Memorial Hospital [place], KYCO2 [Moles/Vol]26 mmol/L20 - 31 mmol/LMMount [address]. [facility]- [place], KYCreatinine [Mass/Vol]1.37 mg/dLHigh0.5 - 0.9 mg/dLCleveland Clinic [facility], KYGFR Bwmjzipg51 mL/minLow>60 [facility] [place], KYGFR Non- Fisvebqi48 mL/minLow>60[facility], [place] GFR/1.73 sq M predicted among non-blacks MDRD (S/P/Bld) [Vol rate/Area]NOT REPORTEDC[facility] Clinic [facility] Hospital, KYGFR/1.73 sq M predicted among non-blacks MDRD (S/P/Bld) [Vol rate/Area][facility], KYComment on above:Average GFR for 40-49 years old: 99 mL/min/1.73sq m Chronic Kidney Disease: <60 mL/min/1.73sq m Kidney failure: <15 mL/min/1.73sq m eGFR calculated using average adult body mass. Additional eGFR calculator available at: http://www.[employer].tok tok tok/multiple_crcl_2012.htm Glucose [Mass/Vol]160 mg/fJYzgo20 - 99 mg/dLCleveland Clinic [facility], KYInterpretation and review of laboratory resultsAbnormalC[facility] Clinic [facility], KYPotassium [Moles/Vol]4.6 mmol/L3.7 - 5.3 mmol/LMMount St. [facility]- [place], KYProtein [Mass/Vol]7.4 g/dL6.4 - 8.3 g/dLCleveland Clinic [facility], KYSodium [Moles/Vol]140 mmol/L135 - 144 mmol/LMercy Health- [place], KYUrea nitrogen [Mass/Vol]24 mg/dLHigh6 - 20 mg/dLElmira, KYHemoglobin A1Con 28-98-5000Szgflum [Mass/Vol]123 mg/dLElmira, KYComment on above:The ADA and AACC recommend providing the estimated average glucose result to permit better patient understanding of their HBA1c result. HbA1c (Bld) [Mass fraction]5.9 %4 - 6 %[place], KYLDL Cholesterol, Directon 07-76-0177Notecouqdfy in LDL [Mass/Vol]58 mg/dL<100[place], [place] Lipid Panelon 45-63-3881Txxifckdgbv [Mass/Vol]194 mg/dL<200[place], [place] Comment on above: Cholesterol Guidelines: <200 Desirable 200-240 Borderline >240 Undesirable Cholesterol in HDL [Mass/Vol]27 mg/dLLow>40[place], KYComment on above: HDL Guidelines: <40 Undesirable 40-59 Borderline >59 Desirable Cholesterol in LDL [Mass/Vol]0 - 130 mg/dLElmira, KYComment on above: Calculation not valid for Triglyceride value greater than 400 mg/dL. Direct LDL reflexed LDL Guidelines: <100 Desirable 100-129 Near to/above Desirable 130-159 Borderline >159 Undesirable Direct (measured) LDL and calculated LDL are not interchangeable tests. Cholesterol in VLDL [Mass/Vol]NOT REPORTED1 - 30 mg/dLElmira, [place] Cholesterol.total/Cholesterol in HDL [Mass ratio]7.2 {ratio}High<5[place], KYInterpretation and review of laboratory resultsAbnormalEl[place], KYTriglyceride [Mass/Vol]1112 mg/dLHigh<150[place], KYComment on above: Triglyceride Guidelines: <150 Desirable 150-199 Borderline 200-499 High >499 Very high Based on AHA Guidelines for fasting triglyceride, July 2012. Patient Fasting?on 61-76-4390Hxmolfa Fasting?YES[place], KYVitamin D 25 Hydroxyon 23-82-4152Ssl D, 25-Lvtimgu31.2 ng/mL30 - 100 ng/mLElmira, KYComment on above: Reference Range: Vitamin D status Range Deficiency <20 ng/mL Mild Deficiency 20-30 ng/mL Sufficiency 30-100 ng/mL Toxicity >100 ng/mL C-Reactive Proteinon [id number] [Mass/Vol]6.2 mg/LHigh0 - 5 mg/[employer] [place], KYInterpretation and review of laboratory resultsAbnormalC[facility] Clinic [facility], KYHemoglobin P7LZegjfjx By: Janel Allen on 46-61-9875Nxzmnlr [Mass/Vol] 108 mg/dLMercy Memorial HospitalBioPharmX Phone: comment on above:The ADA and AACC recommend providing the estimated average glucose result to permit better patient understanding of their HBA1c result. HbA1c (Bld) [Mass fraction]5.4 %4.8 - 5.9 %[employer] Phone: Homocysteine, SerumOrdered By: Janel Allen on 03-59-5194Ojymkilojoya7 umol/L<15.0Mer[facility] Memorial HospitalBioPharmX Phone: TSH without ReflexOrdered By: Janel Allen on 88-57-8640WIH Qn1.03 m[IU]/[employer] Phone: Vitamin B12 & FolateOrdered By: Janel Dignaharinder on 14-69-1721Bneiotsqg (Vitamin B12) [Mass/Vol]292 pg/mL232 - 1245 pg/mLMercy Memorial HospitalBioPharmX Phone: Folate13.8 ng/mL>4.8Mer[facility] HospitalBioPharmX Phone: XR CERVICAL SPINE (4-5 VIEWS)on 56-16-0128Omni degenerative changes cervical spine not unusual for age. Refer to the MRI [facility] 02/03/2019 with some of the findings discussed above. [place], KYEXAM: XR CERVICAL SPINE (4-5 VIEWS) HISTORY: Reason for exam:->history MRSA discitis of thoracicregion. New tingling and numbness of fingers COMPARISON: MRI cervical spine [facility] 02/03/2019, cervical spine series 04/03/2010. The [...] Swimmer's lateral viewshows no additional abnormality.[facility], Dannielle, Rick Incoming Radiant Results From [employer] - 07/29/2019 10:05 AM EDT EXAM: XR CERVICAL SPINE (4-5 VIEWS) HISTORY: Reason for exam:->history MRSA discitis of thoracic region. New tingling and numbness of fingers COMPARISON: MRI cervical spine [facility] 02/03/2019, cervical spine series 04/03/2010. The [...] unusual for age. Refer to the [facility] 02/03/2019 with some of the findings discussed above. [facility], [facility]-Reactive ProteinOrdered By: Azalea Knight on 07-28-2019 CRP [Mass/Vol]6.4 mg/LHigh0 - 5 mg/LMMedina Hospital, MDInterpretation and review of laboratory resultsAbnormWayne Hospital, MDCBC With Auto DifferentialOrdered By: Azalea Knight on 05-38-3941Szbxmcxb Eos #0.10[facility], KYAbsolute Immature GranulocyteNOT REPORTEDC[facility] Clinic [facility], [place] Absolute Lymph #2.10[facility], KYAbsolute Summit #0.50[facility], [place] Basophils (Bld) [#/Vol]0.00 10*3/uLMercy Health- [place], KYBasophils/100 WBC (Bld)1 %0 - 2 %[facility]- [place], KYDifferential TypeYESMercy Health- [place], [place] Eosinophils/100 WBC (Bld)1 %0 - 5 %[facility]- [place], KYErythrocyte distribution width (RBC) [Ratio]14.5 %12.1 - 15.2 %[facility]- [place], KYHematocrit (Bld) [Volume fraction]38.1 %36 - 46 %[facility]- [place], KYHemoglobin (Bld) [Mass/Vol] 12.9 g/dL12 - 16 g/dLAdena Regional Medical Center Health- [place], KYImmature GranulocytesNOT REPORTED0 % [facility]- [place], KYLymphocytes/100 WBC (Bld)34 %15 - 40 %[facility]- [place], [place] MCH (RBC) [Entitic mass]29.5 pg26 - 34 pgAdena Regional Medical Center [facility]- [place], KYMCHC (RBC) [Mass/Vol]33.9 g/dL31 - 37 g/dLAdena Regional Medical Center Health- [place], KYMCV (RBC) [Entitic vol]87.1 fL80 - 100 [facility]LAdena [facility]- [place], [place]Monocytes/100 WBC (Bld)8 %4 - 8 %[facility]- [place], KYMPVNOT REPORTED6 - 12 fLAdena [facility]- [place], KYNRBC AutomatedNOT REPORTEDper 100 WBCAdena Regional Medical [facility]- [place], KYPlatelet EstimateNOT REPORTEDAdena [facility]- [place], [place] Platelets (Bld) [#/Vol]222 10*3/uLAdena [facility]- [place], KYRBC (Bld) [#/Vol]4.38 10*6/uL4 - 5.2 m/[facility]- [place], KYRBC morphology finding Nom (Bld)NOT REPORTEDAdena [facility]- [place], KYSegmented neutrophils/100 WBC (Bld)56 %47 - 75 % [facility]- [place], KYSegs Absolute3.50[facility]- [place], KYWBC (Bld) [#/Vol]6.2 10*3/uLAdena [facility]- [place], KYWBC MorphologyNOT REPORTEDAdena [facility]- [place], [place] Sedimentation RateOrdered By: Azalea Knight on 27-52-6487Ssw Rate19 mm0 - 30 mmC[facility], KYC-Reactive Proteinon 71-45-0677ZBH [Mass/Vol]7.3 mg/LHigh0 - 5 mg/LMMedina Hospital, KYInterpretation and review of laboratory results AbnormalCleveland Clinic [facility], KYAlbuminon 50-59-3053Iaehide [Mass/Vol]4.3 g/dL3.5 - 5.2 g/dLCleveland Clinic Mentor Hospital, KYBUN & Creatinineon 96-74-0614Yoirztzzqw [Mass/Vol] 1.27 mg/dLHigh0.5 - 0.9 mg/dLCleveland Clinic Ment[facility] Hospital, KYGFR Suaoaoqq56 mL/min Low>60[facility], KYGFR Non- Riktqpos76 mL/minLow>60[facility], KYGFR/1.73 sq M predicted among non-blacks MDRD (S/P/Bld) [Vol rate/Area]NOT REPORTEDC[facility] Clinic Ment[facility], KYGFR/1.73 sq M predicted among non-blacks MDRD (S/P/Bld) [Vol rate/Area][facility], KYComment on above:Average GFR for 40-49 years old: 99 mL/min/1.73sq m Chronic Kidney Disease: <60 mL/min/1.73sq m Kidney failure: <15 mL/min/1.73sq m eGFR calculated using average adult body mass. Additional eGFR calculator available at: http://www.[employer].tok tok tok/multiple_crcl_2012.htm Interpretation and review of laboratory resultsAbnormalCleveland Clinic Mentor Hospital, KYUrea nitrogen [Mass/Vol]18 mg/dL6 - 20 mg/dLCleveland Clinic Mentor Hospital, KYCalciumon 06-17-2019 Calcium [Mass/Vol]10.4 mg/dL8.6 - 10.4 mg/dLCleveland Clinic Mentor Hospital, KYElectrolyte Panelon 96-69-9146Qymcd gap [Moles/Vol]13 mmol/L9 - 17 mmol/LMMedina Hospital, KYChloride [Moles/Vol]103 mmol/L98 - 107 mmol/LMMartin Memorial Hospital [place], KYCO2 [Moles/Vol]24 mmol/L20 - 31 mmol/LMercy Health- [place], KYPotassium [Moles/Vol]3.8 mmol/L3.7 - 5.3 mmol/LMercy Health- [place], KYSodium [Moles/Vol]140 mmol/L135 - 144 mmol/LMercy Health- [place], KYHemoglobin and Hematocrit, Bloodon 06-17-2019 Hematocrit (Bld) [Volume fraction]35.4 %Low36 - 46 %[facility] [place] Hemoglobin (Bld) [Mass/Vol]12.1 g/dL12 - 16 g/dLMercy Health- [place], [place] Interpretation and review of laboratory resultsAbnormDavis Regional Medical Center [facility]- [place], [place] Magnesiumon 15-70-6952Abtvuzgfl [Mass/Vol]2.3 mg/dL1.6 - 2.6 mg/dLMercy Health- [place], KYMicroscopic Urinalysison 09-65-0644Guhmnlxfi, UANOT REPORTEDNoneMercy Health- [place], KYBacteria, UA1+AbnormalNoneMercy Health- [place], KYCasts UANOT REPORTED /LPFMercy Health- [place], KYCrystals UANOT REPORTEDNone /HPFMercy Health- [place], [place] Epithelial Cells UA2 TO 5/HPFMercy Health- [place], KYInterpretation and review of laboratory resultsAbnormHonorHealth Scottsdale [facility] Centercy [facility]- [place], KYMucus, UANOT REPORTEDNoneMercy [facility]- [place], KYOther Observations UANOT REPORTEDNOT REQ.[facility]- [place], KYRBC (U) [#/Vol]NOT REPORTEDMercy Health- [place], KYRenal Epithelial, UrineNOT REPORTED0 /HPFMercy Health- [place], KYTrichomonas, UANOT REPORTEDNoneMercy [facility]- [place], KYWBC, UA0 TO 20 /HPFMercy Health- [place], KYYeast, UANOT REPORTEDNoneMercy Health- [place], [place]- [facility]- [place], KYPhosphoruson 10-08-0716Cjsnpkwlz [Mass/Vol]3.0 mg/dL2.6 - 4.5 mg/dLMercy Health- [place], KYProtein / creatinine ratio, urineon 06-17-2019 Creatinine, Ur228.2 mg/eBIgiq67 - 217 mg/dLMercy Memorial Hospitalcy Health- [place], KYInterpretation and review of laboratory resultsAbnormalMercy Memorial Hospitalcy Health- [place], KYProtein (U) [Mass/Vol]18 mg/dLBlanchard Valley Health [facility]- [place], KYComment on above:No normal range established.Urine Total Protein Creatinine Ratio0.08MerSkagit [facility]- [place], [place] Sedimentation Rateon 06-30-1354Ese Rate24 mm0 - 30 mmMerSkagit Regional Health- [place], [place] Urinalysison 73-93-5087Lpndryfij UrineNegativeNEGATIVEMer Health- [place], KYColor, UAYELLOWYELLOWMer Health- [place], KYGlucose, UrNegativeNEGATIVEMer Health- [place], KYInterpretation and review of laboratory resultsAbnormalAdena [facility]- [place], [place] Ketones Ql (U)NegativeNEGATIVEMer Health- [place], KYLeukocyte esterase Test strip Ql (U)NegativeNEGATIVEMercy Health- [place], KYNitrite, UrineNegativeNEGATIVEMer Health- [place], KYpH, UA6.0MerSkagit Regional [facility]- [place], KYProtein (U) [Mass/Vol]TRACEAbnormal NEGATIVEAdena Regional Medical [facility]- [place], KYSpecific [place], UA1.025MerSkagit Regional [facility]- [place], [place] Turbidity UAHAZYAbnormalCLEARMercy Health- [place], KYUrinalysis CommentsMerSkagit Regional Health- [place], KYUrine HgbNegativeNEGATIVEMer Health- [place], KYUrobilinogen, Urine NormalNormalBlanchard Valley [facility]- [place], KYMR CERVICAL SPINE WITHOUT CONTRASTon [...] edema. /cdr Workstation ID: [id number] [facility] HospitalEXAMINATION: MR CERVICAL SPINE WITHOUT CONTRAST HISTORY: [...] mild left-sided neural foraminal stenosis. [place] [facility] HospitalInterface, Rad [facility] - 02/03/2019 11:02 AM EDT EXAMINATION: [...] be due to myelomalacia or cord edema. /[facility] Workstation ID: [id number] CERVICAL SPINE WITHOUT [...] be due to myelomalacia or cord edema. /[facility] Workstation ID: [id number] Dictated by: RONALD MCCRAY on ThuFebruary 03, 2019 10:34:16 AM EDT Transcribed by: FELICITY DE JESUS on ThuFebruary 03, 2019 10:58:51 AM EDT Finalized by: RONALD MCCRAY on ThuFebruary 03, 2019 10:59:35 AM EDTHolmes County Joel Pomerene Memorial HospitalComment on above:Order Comment: Reason for exam?:neck pain Injury/Trauma or Illness?:Illness/Other How long have you had these symptoms (acute/chronic)?:Chronic Type of Exam?:Initial Additional signs and symptoms?:neck pain, chronic hx of multiple old injuries Cult,Alana 28-03-3248Rciv,MycobacteriaSpecimen Description .TISSUE EPIDURAL TISSUE Special Requests NOT REPORTED Direct Exam NO ACID FAST BACILLI SEEN (DIRECT SMEAR) Culture NO GROWTH 48 DAYS Report Status FINAL 10/11/2018K[facility]tering HealthComment on above:Performed By: #### TROPI #### TE[address] [place] [address] Cult,MycobacteriaSpecimen Description .SPINE .TISSUE T4 LAMINA Special Requests NOT REPORTED Direct Exam NO ACID FAST BACILLI SEEN (DIRECT SMEAR) Culture NO GROWTH 48 DAYS Report Status FINAL 10/11/2018[facility]tering HealthComment on above:Performed By: #### LEATHAB #### [facility] [address] [place] [address] Cult,Funguson 10-71-0673Crbq,FungusSpecimen Description .TISSUE EPIDURAL TISSUE Special Requests NOT REPORTED Culture NO GROWTH 34 DAYS Report Status FINAL 09/27/2018[facility]tering HealthComment on above:Performed By: #### TERRYWB #### [facility] [address] [place] [address] Cult,FungusSpecimen Description .SPINE .TISSUE T4 LAMINA Special Requests NOT REPORTED Culture NO GROWTH 34 DAYS Report Status FINAL 09/27/2018[facility]tering HealthComment on above:Performed By: #### LEATHAB #### [employer] [address] [place], [place] [id number] BUNon 88-99-9702Dyey nitrogen mass conc20 mg/dL87 Leblanc StreetComment on above:Performed By: #### [id number] ####OVIDIO DxwUvxv[address] [place], [place] [address]Uunhssjrctid 98-83-8845Jqgckprmon mass conc1.3 mg/dLHigh0.5-1.1SArkansas State Psychiatric HospitalComment on above: Performed By: #### [id number] ####OVIDIO Yzpxaqbv7772 [place] [address] eGFRon 10-14-4012aZEY AA54 mL/min/1.73 w3ImqkjlLrvrtmrgcRiverview Behavioral Health Comment on above:Order Comment: Order added by Discern Expert.Performed By: #### [id number] ####OVIDIO Jhgyydyi[address] [place], [place] [address]AFK/1.73 sq M predicted among non-blacks MDRD vol rate/area (S/P/Bld)45 mL/min/1.73 y7UhepbmWashington Regional Medical CenterComment on above:Order Comment: Order added by Discern Expert.Performed By: #### [id number] ####OVIDIO Mazdejnd[address] [place], [place] [address]Aywq Diffon 07-75-2564Tsdcrosjp Auto #/vol (Bld)0.0 E3/mcLNormal0.0-0.2SMilitary Health System SystemComment on above:Order Comment: Order Added by Discern Expert.Performed By: #### [id number] ####OVIDIO [address] [place], [place] [address]Oecunhmqg/100 WBC Auto (Bld)1.1 % Normal0.0-2.0[facility] SystemComment on above:Order Comment: Order Added by Discern Expert.Performed By: #### [id number] ####OVIDIO AvalosVtrOshp[address] [place], [place] [address]Zjp Absolute0.0 E3/mcLNormal0.0-0.7[facility] SystemComment on above:Order Comment: Order Added by Discern Expert.Performed By: #### [id number] ####OVIDIO SigJxvt4904 [place], [place] [address]Bjyprfiwvxl/100 WBC Auto (Bld)0.3 %Normal0.0-11.0[facility] SystemComment on above:Order Comment: Order Added by Discern Expert.Performed By: #### [id number] ####OVIDIO AvalosGefYsbo60[address] [place], [place] [address]Chlpdtvmxha Auto #/vol (Bld)1.2 E3/mcLNormal1.2-3.4SMilitary Health System SystemComment on above:Order Comment: Order Added by Discern Expert.Performed By: #### [id number] ####OVIDIO AvalosGpbJmna[address] [place], [place] [address]Dmhdqrjlnwl/100 WBC Auto (Bld)30.6 %Fhnkfg64.0-55.0[facility] SystemComment on above:Order Comment: Order Added by Discern Expert.Performed By: #### [id number] ####OVIDIO AvalosYfzEgzq[address] [place], [place] [address]Zhxk Absolute0.4 E3/mcLNormal0.0-0.7 [facility] SystemComment on above:Order Comment: Order Added by Discern Expert.Performed By: #### [id number] ####OVIDIO [address] [place], [place] [address]Puhytaiqw/100 WBC Auto (Bld)10.2 %High0.0-10.0Mena Medical CenterComment on above:Order Comment: Order Added by Discern Expert.Performed By: #### [id number] ####OVIDIO [address] [place], [place] [address]Qdzqda Absolute2.3 E3/mcLNormal1.4-6.5SArkansas State Psychiatric Hospital Comment on above:Order Comment: Order Added by Discern Expert.Performed By: #### [id number] ####OVIDIO [address] [place], [place] [address]Efqpwq Auto57.8 % Zpgdkz18.0-75.0M[facility] Medical CenterComment on above:Order Comment: Order Added by Discern Expert.Performed By: #### [id number] ####OVIDIO [address] [place], [place] [address]KQR w/ Auto Diffon 28-31-5412Elxhrdzpswy distribution width Auto Ratio (RBC)19.9 %High11.5-14.5SArkansas State Psychiatric HospitalComment on above:Performed By: #### [id number] ####OVIDIO [address] [place], [place] [address]Lqtdtgixgj Auto Volume Fraction (Bld)26.5 %Low36.0-48.0 [facility] Medical CenterComment on above:Performed By: #### [id number] ####OVIDIO [address] [place], [place] [address]Kzdmvkmefg mass conc (Bld)8.7 g/dLLow12.0-16.0M[facility] Medical CenterComment on above:Performed By: #### [id number] ####OVIDIO AvalosIbgNjoq[address] [place], [place] [address]DBN Auto Entitic mass (RBC)29.6 tfSulidx69.0-31.0[facility] Medical CenterComment on above:Performed By: #### [id number] ####OVIDIO [address] [place], [place] [address]VOAL Auto mass conc (RBC)32.9 g/dLLow33.0-37.0[facility] Health SystemComment on above:Performed By: #### [id number] ####OVIDIO [address] [place] [id number] Auto Entitic volume (RBC)89.8 iXOtujte74.0-100.0 [facility] Medical CenterComment on above:Performed By: #### [id number] ####OVIDIO [address] [place], [place] [address]Platelet mean volume Auto Entitic volume (Bld)10.5 fLNormal7.4-11.0[facility] SystemComment on above:Performed By: #### [id number] ####OVIDIO [address] [place], [place] [address]Platelets Auto #/vol (Bld)117 E3/xhNXll425-305AqbzfqjnbMena Medical CenterComment on above:Performed By: #### [id number] ####OVIDIO [address] [place], [place] [address]RBC Auto #/vol (Bld)2.95 E6/mcLLow3.90-5.40SMilitary Health System SystemComment on above:Performed By: #### [id number] ####OVIDIO [address] [place], [place] [address]WBC Auto #/vol (Bld)4.0 E3/mcLNormal 3.6-11.0[facility] Medical CenterComment on above:Performed By: #### [id number] ####OVIDIO [address] [place], [place] [address]CRPon 33-69-6834PWE mass conc0.83 mg/dLNormal0.00-1.00[facility] SystemComment on above:Performed By: #### [id number] ####OVIDIO AvalosAtlJpvy[address] [place], [place] [address]Morphon 70-68-4560Qzffuplivzaf Auto Ql (Bld)1+NormalMena Medical CenterComment on above:Order Comment: Order Added by Discern Expert. Performed By: #### [id number] ####OVIDIO [address] [place] [address] Hypochromasia1+[facility] for Medical SciencesComment on above:Order Comment: Order Added by Discern Expert.Performed By: #### [id number] ####OVIDIO AvalosEaiVbom[address] [place], [place] [address]YYP morphology finding Nom (Bld)SEE MORPHOLOGYUniversity of Arkansas for Medical SciencesComment on above:Order Comment: Order Added by Discern Expert.Performed By: #### [id number] ####OVIDIO AvalosJjwNetu[address] [place], [place] [address]Ztt Rate Automatedon 50-14-2593Brs Rate Automated 15 mm/hrUniversity of Arkansas for Medical SciencesComment on above:Result Comment: AGE-SPECIFIC REFERENCE RANGES FOR SEDIMENTATION RATE AUTOMATED REFERENCE RANGE - MM/HR AGE MEN WOMEN 0-2 0-2 - PUBERTY 3-13 3-13 PUBERTY - 50 YRS 0-15 0-20 > 50 YRS0-20 0-30Performed By: #### [id number] ####OVIDIO Hematology Manual Rhfcjgahuj[address] [place], [place] [address]ogplx morphon 09-20-2018 Platelet morphology finding Nom (Bld)[facility] HospitalComment on above:Performed By: #### [id number] ####OVIDIO AvalosOlbIrie[address] [place], [place] [address]Rxyuijzpa Auto #/vol (Bld)[facility] Springs HospitalComment on above:Performed By: #### [id number] ####OVIDIO ArbSckr[address] [place], [place] [address]BHMFY UREA NITROGENon 59-76-6138Qhns nitrogen mass conc (Bld)19 mg/dLNormal7-20[facility] HospitalComment on above:Performed By: #### ACBC, ESR, BUN, CREAT, CREACT, FX ####Testing performed at [address] [address]Z REACTIVE PROTEINon 21-35-0798EJM mass conc18.5 mg/LHigh0-10.0[facility] HospitalComment on above:Performed By: #### ACBC, ESR, BUN, CREAT, CREACT, FX ####Testing performed at [address] [address]EOAda 09-13-2018 ABSOLUTE BAS0.1 Y18OjscdiQjvmjInscription House Health Center on above:Performed By: #### ACBC, ESR, BUN, CREAT, CREACT, FX ####Testing performed at [place] [id number] EOS0.20 P16ThedyvUlbknInscription House Health Center on above:Performed By: #### ACBC, ESR, BUN, CREAT, CREACT, FX ####Testing performed at [place] [address]ABSOLUTE NEUTROPHIL COUNT2.5 u23Aoiusf9.0-7.0[facility] on above:Performed By: #### ACBC, ESR, BUN, CREAT, CREACT, FX ####Testing performed at [place] [address]Basophils/100 WBC Auto (Bld)1.4 %Normal0.0-2.0[facility] on above:Performed By: #### ACBC, ESR, BUN, CREAT, CREACT, FX ####Testing performed at [place] [address]6DTYPEAUTO DIFFZia Health Clinic on above:Performed By: #### ACBC, ESR, BUN, CREAT, CREACT, FX ####Testing performed at [place] [address]Eosinophils/100 WBC Auto (Bld)3.5 %Normal0.0-11.0 [facility] on above:Performed By: #### ACBC, ESR, BUN, CREAT, CREACT, FX ####Testing performed at [place] [address]Lymphocytes Auto #/vol (Bld)1.10 L19MfafnjIqyczZia Health Clinic on above:Performed By: #### ACBC, ESR, BUN, CREAT, CREACT, FX ####Testing performed at [place] [address]Lymphocytes/100 WBC Auto (Bld)27.0 %Rhujxy83.0-55.0[facility] on above:Performed By: #### ACBC, ESR, BUN, CREAT, CREACT, FX ####Testing performed at [address] [address]Icbageoon Auto #/vol (Bld)0.4 L47NspwncSlxvzHackettstown Medical CenterComment on above:Performed By: #### ACBC, ESR, BUN, CREAT, CREACT, FX ####Testing performed at [address] [address]Rxvuatxrs/100 WBC Auto (Bld)9.4 %Normal0.0-10.0[facility] on above:Performed By: #### ACBC, ESR, BUN, CREAT, CREACT, FX ####Testing performed at [place] [address]Neutrophils/100 WBC Auto (Bld) 58.7 %Zeenqb75.0-75.0[facility] Medical Centerment on above:Performed By: #### ACBC, ESR, BUN, CREAT, CREACT, FX ####Testing performed at [place] [address]Erythrocyte distribution width Auto Ratio (RBC)17.6 %High11.5-14.5ASelect Medical Specialty Hospital [facility] [place] on above:Performed By: #### ACBC, ESR, BUN, CREAT, CREACT, FX ####Testing performed at [place] [address]Hematocrit Auto Volume Fraction (Bld)26.2 %Low36.0-48.0[facility] on above:Performed By: #### ACBC, ESR, BUN, CREAT, CREACT, FX ####Testing performed at [place] [address]Hemoglobin mass conc (Bld)8.8 g/dLLow12.0-16.0[facility] on above:Performed By: #### ACBC, ESR, BUN, CREAT, CREACT, FX ####Testing performed at [place] [address]MCH Auto Entitic mass (RBC)29.3 amIkqtau69.0-35.0 [facility] on above:Performed By: #### ACBC, ESR, BUN, CREAT, CREACT, FX ####Testing performed at [place] [address]MCHC Auto mass conc (RBC)33.7 g/eRXlelsq71.0-37.0[facility] on above:Performed By: #### ACBC, ESR, BUN, CREAT, CREACT, FX ####Testing performed at [place] [address]MCV Auto Entitic volume (RBC)86.9 nOUruqgi77.0-100.0[facility] on above:Performed By: #### ACBC, ESR, BUN, CREAT, CREACT, FX ####Testing performed at [place] [address]Platelet mean volume Auto Entitic volume (Bld)10.1 fLNormal 7.4-11.0[facility] on above:Performed By: #### ACBC, ESR, BUN, CREAT, CREACT, FX ####Testing performed at [place] [address]Platelets Auto #/vol (Bld)130 /cmmNormal 130.0-400.0[facility] on above:Performed By: #### ACBC, ESR, BUN, CREAT, CREACT, FX ####Testing performed at [place] [address]RBC Auto #/vol (Bld)3.01 /cmmLow4.0-5.4ASelect Medical Specialty Hospital [facility] [place] on above:Performed By: #### ACBC, ESR, BUN, CREAT, CREACT, FX ####Testing performed at [place] [address]WBC Auto #/vol (Bld)4.2 /cmmNormal3.6-11.0[facility] on above:Performed By: #### ACBC, ESR, BUN, CREAT, CREACT, FX ####Testing performed at [place] [address]CREATININE,SERUMon 55-00-3560Zmterhghsz mass conc1.5 mg/dLHigh0.52-1.04 [facility] on above:Performed By: #### ACBC, ESR, BUN, CREAT, CREACT, FX ####Testing performed at [place] [address]EST. GFR, Bxeyesry87 ml/min/1.73sq.[facility] on above:Performed By: #### ACBC, ESR, BUN, CREAT, CREACT, FX ####Testing performed at [place] [address]EST. GFR,Non Mfyshxdj50 ml/min/1.73sq.[facility] on above:Performed By: #### ACBC, ESR, BUN, CREAT, CREACT, FX ####Testing performed at [place] [address]GFR/1.73 sq M predicted among non-blacks MDRD vol [...] BUN, CREAT, CREACT, FX ####Testing performed at [address] [address]DOKtc 90-23-6950RFB Velocity (Bld)49 mm/hHigh0-15 [facility] on above:Performed By: #### ACBC, ESR, BUN, CREAT, CREACT, FX ####Testing performed at [address] [address]RYD REQUESTon [id number] TOFAX TO DR HARTMAN AT [phone] AND TO [facility] AT [phone] Medical CenterComment on above:Performed By: #### PHY, BUN, CREAT, FX ####Testing performed at [address] [address]JYC REQUEST on [id number] [id number] Memorial HospitalComhenry ford jackson hospital on above: Performed By: #### FX ####Testing performed at [place] [address]BLOOD UREA NITROGENon 53-49-4263Txss nitrogen mass conc (Bld)21 mg/dLHigh7-20[facility] HospitalComment on above:Performed By: #### PHY, BUN, CREAT, FX ####Testing performed at [place] [address]CREATININE,SERUMon 78-12-4908Rhkepruabn mass conc 1.4 mg/dLHigh0.52-1.04[facility] HospitalComment on above:Performed By: #### PHY, BUN, CREAT, FX ####Testing performed at [address] [address]WUZ. GFR, Urahjcsh91 ml/min/1.73sq.[facility] HospitalComhenry ford jackson hospital on above:Performed By: #### PHY, BUN, CREAT, FX ####Testing performed at [address] [address]LGE. GFR,Non Gzoaoshz70 ml/min/1.73sq.[facility] Comment on above:Performed By: #### PHY, BUN, CREAT, FX ####Testing performed at [address] [address]MQO/1.73 sq M predicted among non-blacks MDRD vol rate/area (S/P/Bld)Average GFR for 30-39 years old = 109.[facility] HospitalComhenry ford jackson hospital on above:Result Comment: Chronic Kidney disease, GFR = <60.Kidney failure, GFR = <15.The GFR estimate is not adjusted for extreme body surface area or acute process, nor has it been validated for women or ethnic groups other than and . Performed By: #### PHY, BUN, CREAT, FX ####Testing performed at [address] [address]LOC REQUESTon [id number] TO [phone] [facility] HospitalComment on above:Performed By: #### PHY, BUN, CREAT, FX ####Testing performed at [address] [address]PND NEW PHYSICIANon 96-91-5066GOL NEW PHYSICIAN DEVAN UPMayo Memorial HospitalComment on above:Performed By: #### PHY, BUN, CREAT, FX ####Testing performed at [address] [address]KKJon 74-64-0975Eczx nitrogen mass conc24 mg/dLHigh6- [facility] Medical CenterComment on above:Performed By: #### [id number] ####OVIDIO [address] [place], [place] [address]Cgutqzlgccmh 08-27-2018 Creatinine mass conc1.6 mg/dLHigh0.5-1.1SArkansas State Psychiatric HospitalComment on above:Performed By: #### [id number] ####OVIDIO [address]jfv[address]uy[address] [place], [place] [address]jOXVpo 23-01-5890pUIM AA43 mL/min/1.73 l9VgsskiQgnomnhmcUniversity of Arkansas for Medical SciencesComment on above:Order Comment: Order added by Discern Expert.Performed By: #### [id number] ####OVIDIO AvalosYqbKptq[address]81 [place], [place] [address]UDP/1.73 sq M predicted among non-blacks MDRD vol rate/area (S/P/Bld)36 mL/min/1.73 m2 [facility] for Medical SciencesComment on above:Order Comment: Order added by Discern Expert.Performed By: #### [id number] ####OVIDIO AvalosAulIjar[address] [place], [place] [address]Gkxl,Tissueon 26-37-8437Gkhm,TissueSpecimen Description .TISSUE EPIDURAL TISSUE Special Requests NOT [...] NOT REPORTED Trimethoprim/Sulfa <=10 SUSCEPTIBLE Vancomycin <=0.5 SUSCEPTIBLEKettering HealthComment on above:Performed By: #### LACWB #### TE[address] [place] [address] Cult,TissueSpecimen Description .SPINE .TISSUE T4 LAMINA [...] NOT REPORTED Trimethoprim/Sulfa <=10 SUSCEPTIBLE Vancomycin <=0.5 SUSCEPTIBLEKettering HealthComment on above:Performed By: #### LACWB #### TE[address] [place] [address] Basic Metabolic Profon 08-25-2018(cont.)K[facility]tering HealthComment on above:Result Comment: Average GFR for 30-39 years old: 107 mL/min/1.73sq m Chronic Kidney Disease: <60 mL/min/1.73sq m Kidney failure: <15 mL/min/1.73sq m eGFR calculated using average adult body mass. Additional eGFR calculator available at: http://www.[employer].com/multiple_crcl_2012.htmPerformed By: #### TERRYWB #### [facility] OhioMob[facility] [address] [place] [address] Anion gap molar conc14 mmol/LNormal9-17Tuscarawas HospitalComment on above:Performed By: #### LACWB #### [facility] [employer] [address] [place] [address] Calcium mass conc9.1 mg/dLNormal8.6-10.4Tuscarawas HospitalComment on above:Performed By: #### LACWB #### [facility] [employer] [address] [place] [address] Chloride molar conc96 mmol/SGde71-521FmonmTuscarawas HospitalComment on above:Performed By: #### LACWB #### [facility] [employer] [address] [place] [address] CO2 molar conc23 mmol/JHykxsc36-94AbiilTuscarawas Hospital Comment on above:Performed By: #### LACWB #### [facility] [employer] [address] [place] [address] Creatinine mass conc1.52 mg/dLHigh0.50-0.90T[facility]carawas HospitalComment on above:Performed By: #### LACWB #### [facility] [address] [place] [address] GFR, Amer46 mL/minLow>60[facility] Comment on above:Performed By: #### LACWB #### [facility] [employer] [address] [place] [address] GFR,non Amer38 mL/minLow>60[facility] Comment on above:Performed By: #### LACWB #### [facility] [employer] [address] [place] [address] Glucose mass conc95 mg/yWZfaadd45-50VhbkvMount Zion campusComment on above:Performed By: #### LEATHAB #### [facility] [employer] [address] [place] [address] 35156 Potassium molar conc4.5 mmol/LNormal3.7-5.3MMount Zion campusComment on above:Performed By: #### LEAHTAB #### [facility] [employer] [address] [place] [address] 22067 Sodium molar vgxb281 mmol/NGrz418-305CavlyTuscarawas HospitalComment on above:Performed By: #### LACHELLE #### [facility] [employer] [address] [place] [address] 19460 Urea nitrogen mass conc43 mg/dLHigh6-20Tuscarawas HospitalComment on above:Performed By: #### LACHELLE #### [facility] [employer] [address] [place] [address] 05269 BUN/CRE RatioNOT REPORTEDBothwell Regional Health Centeral9-20[facility] Comment on above:Performed By: #### LEATHAB #### [facility] [employer] [address] [place] [address] 11447 Staging:NOT REPORTEDNormalTuscarawas HospitalComment on above:Performed By: #### LACHELLE #### [facility] [employer] [address] [place] [address] 68460 CBC with Diffon [id number]. Basophil0.07 k/uLNormal0.00-0.20 [facility]as HospitalComment on above:Performed By: #### LEATHAB #### [facility] [employer] [address] [place] [address] 37265 Abs.Imm.Granulocyte0.08 k/uLNormal0.00-0.30Tuscarawas HospitalComment on above:Performed By: #### LACWB #### [address] [address] Abs.Neutrophil (Seg)5.77 k/uLNormal1.50-8.10Tuscarawas HospitalComment on above:Performed By: #### LACWB #### [address] 77827 Basophils/100 WBC (Bld)1 %Normal0-2MercGardens Regional [facility] [place] Comment on above:Performed By: #### TERRYWB #### [address] 53106 Eosinophils #/vol (Bld)0.12 10*3/uLNormal0.00-0.44Tuscarawas HospitalComment on above:Performed By: #### TERRYWB #### [address] 65538 Eosinophils/100 WBC (Bld)1 %Normal1-4Tuscarawas HospitalComment on above:Performed By: #### TERRYWB #### [address] 97459 Immature granulocytes #/vol (Bld)1 %Gnrx2LzmirLos Angeles County Los Amigos Medical CenterComment on above:Performed By: #### LACWB #### [address] 65252 Lymphocytes #/vol (Bld)1.83 10*3/uLNormal1.10-3.70Tuscarawas HospitalComment on above:Performed By: #### LACWB #### [address] 07501 Lymphocytes/100 WBC (Bld)21 %Bzz49-48MluavTuscarawas HospitalComment on above:Performed By: #### LACWB #### [facility] [address] [place] [address] 41733 Monocytes #/vol (Bld)0.92 10*3/uLNormal0.10-1.20Tuscarawas HospitalComment on above:Performed By: #### LACWB #### [facility] [address] [place] [address] 70424 Monocytes/100 WBC (Bld)11 %Normal3-12Tuscarawas HospitalComment on above:Performed By: #### LACWB #### [facility] [address] [place] [address] 39719 Neutrophil (Seg)66 %Iwkp96-60LfwbeTuscarawas Hospital Comment on above:Performed By: #### LACWB #### [facility] [address] [place] [address] 15543 Erythrocyte distribution width Ratio (RBC)14.6 %High11.8-14.4Tuscarawas HospitalComment on above:Performed By: #### LACWB #### [facility] [address] [place] [address] 85463 Hematocrit Volume Fraction (Bld)32.6 %Low36.3-47.1MMount Zion campusComment on above:Performed By: #### LACWB #### [facility] [address] [place] [address] 80942 Hemoglobin mass conc (Bld)10.0 g/dLLow11.9-15.1MMount Zion campusComment on above:Performed By: #### LACWB #### [facility] [address] [place] [address] 40927 MCH Entitic mass (RBC)28.2 tyThsepu21.2-33.5Tuscarawas HospitalComment on above:Performed By: #### LACWB #### [employer] [address] [place] [address] 84497 MCHC mass conc (RBC)30.7 g/uAGzsahm98.4-34.8Tuscarawas HospitalComment on above:Performed By: #### LACWB #### [facility] [address] [place] [address] 83439 MCV Entitic volume (RBC)91.8 pIJcstrk50.6-102.9Tuscarawas HospitalComment on above:Performed By: #### LACWB #### [facility] [address] [place] [address] 69609 NRBC Automated0.0 per 100 WBCNormal0.0Tuscarawas HospitalComment on above:Performed By: #### LACWB #### [facility] [address] [place] [address] 61783 Platelet mean volume Entitic volume (Bld)10.4 fLNormal8.1-13.5Tuscarawas HospitalComment on above:Performed By: #### LACWB #### [facility] [address] [place] [address] 12020 Platelets #/vol (Bld)292 10*3/vVAomxdy337-862VpigmTuscarawas HospitalComment on above:Performed By: #### LACWB #### [facility] [address] [place] [address] 13961 RBC #/vol (Bld)3.55 10*6/uLLow3.95-5.11Tuscarawas HospitalComment on above:Performed By: #### LACWB #### [facility] [employer] [address] [place] [address] 29384 RBC morphology finding Nom (Bld)ANISOCYTOSIS PRESENTNormalTuscarawas HospitalComment on above:Performed By: #### LACWB #### [address] 09575 WBC #/vol (Bld)8.8 10*3/uLNormal3.5-11.3[facility] Roseville Medical CenterComment on above:Performed By: #### LACWB #### [address] 36180 Auto Diff PerformedNOT REPORTEDKettering HealthComment on above:Performed By: #### LACWB #### [address] 35603 Platelets #/vol (Bld)NOT REPORTEDKettering HealthComment on above:Performed By: #### LACWB #### [address] 77337 WBC MorphologyNOT REPORTEDKettering Health Comment on above:Performed By: #### LACWB #### [address] [address]1999 Fungi,Direct Examon [id number],Direct ExamSpecimen Description .SPINE .TISSUE T4 LAMINA Special Requests NOT REPORTED Direct Exam NO FUNGAL ELEMENTS SEEN Report Status FINAL 08/25/2018Kettering HealthComment on above:Performed By: #### LACWB #### [address] 97036 Magnesiumon 26-24-6781Mmnkofqgv mass conc2.4 mg/dLNormal1.6-2.6 [facility]car[facility] HospitalComment on above:Performed By: #### LACWB #### [address] [address]99 Procalcitoninon 54-30-8567Ihrnlke mass conc0.13 ng/mLHigh<0.09Tuscarawas HospitalComment on above:Result Comment: Suspected Sepsis: 0.09-0.49 [...] entered into the Change in Procalcitonin Calculator (www.dlhtkq-qdw-veqcqbnclq.tok tok tok) to determine the patient's Mortality Risk PrognosisPerformed By: #### LACWB #### [address] [place] [address] [phone] Cult,Aerobe/Anaerobeon [id number],Aerobe/AnaerobeSpecimen Description .SPINE Special Requests NOT REPORTED Direct Exam DUPLICATE ORDER SEE RESULTS FOR TISSUE CULTURE Culture NOT REPORTED Report Status FINAL 08/24/2018Kettering HealthComment on above:Performed By: #### SPAG #### [address] [place] [address] [id number] Cult,Aerobe/AnaerobeSpecimen Description .SPINE Special Requests NOT REPORTED Direct Exam DUPLICATE ORDER SEE RESUULTS FOR TISSUE CULTURE Culture NOT REPORTED Report Status FINAL 08/24/2018Kettering HealthComment on above:Performed By: #### SPAG #### [address] [place] [address] 36553 FLUORO FOR SURGICAL PROCEDURESon 04-48-0195ACNAXF FOR SURGICAL PROCEDURESRadiology exam is complete. No Radiologist dictation. Please follow up with ordering provider. Final resultNoGrand Lake Joint Township District Memorial HospitalOPERATIVE REPORTon 08-24-2018 OPERATIVE REPORTOUR LADY OF [facility] [address] [place] [address] OPERATIVE REPORT PATIENT NAME: CELINA GASPAR : 1980 [facility] REC NO: [id number] ROOM: 0431 ACCOUNT NO: [id number] ADMIT DATE: 08/15/2018 PROVIDER: Lita Mccray MD DATE OF PROCEDURE: 08/23/2018 SURGEON: Lita Mccray MD FIRE BEHAVIOR ANALYST: Eliel Larios DO PREOPERATIVE DIAGNOSIS: Epidural abscess, [...] satisfactory condition. LITA MCCRAY MD CAT/V_SSNCK_I Doc#: [id number] CC: Lita Mccray MDNoalTuscarawas HospitalProcalcitoninon 08-00-6974Nfwlivc mass conc0.16 ng/mLHigh<0.09[facility] Comment on above:Result Comment: Suspected Sepsis: [...] entered into the Change in Procalcitonin Calculator (www.hirnvs-vsb-eicrrvlbql.tok tok tok) to determine the patient's Mortality Risk PrognosisPerformed By: #### DIEGO #### [facility] [address] [place] [address] 59478 Basic Metab w/rfx MGon 08-23-2018(cont.)NormalTuscarawas HospitalComment on above:Result Comment: Average GFR for 30-39 years old: 107 mL/min/1.73sq m Chronic Kidney Disease: <60 mL/min/1.73sq m Kidney failure: <15 mL/min/1.73sq m eGFR calculated using average adult body mass. Additional eGFR calculator available at: http://www.[employer].tok tok tok/multiple_crcl_2012.htmPerformed By: #### DIEGO #### [facility] [address] [place] [address] 13321 Anion gap molar conc14 mmol/LNormal9-17Tuscarawas HospitalComment on above:Performed By: #### DIEGO #### [facility] [address] [place] [address] 38400 Calcium mass conc9.9 mg/dLNormal8.6-10.4Tuscarawas HospitalComment on above:Performed By: #### JANNETHG #### [facility] [address] [place] [address] 71513 Chloride molar conc99 mmol/RNkvqem22-744TydlsTuscarawas HospitalComment on above:Performed By: #### JANNETHG #### [facility] [address] [place] [address] 16864 CO2 molar conc26 mmol/BRowueg05-18OyngpTuscarawas Hospital Comment on above:Performed By: #### DIEGO #### [address] [place] [address] 89627 Creatinine mass conc1.42 mg/dLHigh0.50-0.90Tuscarawas HospitalComment on above:Performed By: #### SPAG #### [address] [place] [address] 07425 GFR, Amer50 mL/minLow>60[facility] Comment on above:Performed By: #### SPAG #### [address] [place] [address] 20994 GFR,non Amer41 mL/minLow>60[facility] Comment on above:Performed By: #### SPAG #### [facility] [address] [place] [address] 14124 Glucose mass conc95 mg/xEImkyjf44-24ToxkbMount Zion campusComment on above:Performed By: #### JANNETHG #### [address] [place] [address] 91248 Potassium molar conc4.9 mmol/LNormal3.7-5.3MMount Zion campusComment on above:Result Comment: SPECIMEN SLIGHTLY HEMOLYZED, RESULTS MAY BE ADVERSELY AFFECTED.Performed By: #### SPAG #### [address] [place] [address] 30532 Sodium molar swqd216 mmol/FCrnihs873-708NypkaTuscarawas HospitalComment on above:Performed By: #### SPAG #### [address] [place] [address] 79524 Urea nitrogen mass conc31 mg/dLHigh6-20T[facility] HospitalComment on above:Performed By: #### SPAG #### [address] [place] [address] 32805 BUN/CRE RatioNOT REPORTEDNormal9-20[facility] Comment on above:Performed By: #### SPAG #### [address] [address]2423 Staging:NOT REPORTEDNormalTuscarawas HospitalComment on above:Performed By: #### DIEGO #### [address] 14163 CBC with Diffon [id number]. Basophil0.06 k/uLNormal0.00-0.20 [facility] HospitalComment on above:Performed By: #### DIEGO #### [address] 66861 Abs.Imm.Granulocyte0.22 k/uLNormal0.00-0.30T[facility]carawas HospitalComment on above:Performed By: #### DIEGO #### [address] 00150 Abs.Neutrophil (Seg)4.43 k/uLNormal1.50-8.10Tuscarawas HospitalComment on above:Performed By: #### DIEGO #### [address] 34498 Basophils/100 WBC (Bld)1 %Normal0-2MMount Zion campus Comment on above:Performed By: #### DIEGO #### [address] 66567 Eosinophils #/vol (Bld)0.15 10*3/uLNormal0.00-0.44T[facility]carawas HospitalComment on above:Performed By: #### JANNETHG #### [address] 82180 Eosinophils/100 WBC (Bld)2 %Normal1-4T[facility]carawas HospitalComment on above:Performed By: #### DIEGO #### [address] 19790 Erythrocyte distribution width Ratio (RBC)14.4 %Gmwuwr39.8-14.4 [facility] HospitalComment on above:Performed By: #### JANNETHG #### [facility] [employer] [address] [place] [address] 96845 Hematocrit Volume Fraction (Bld)33.2 %Low36.3-47.1MMount Zion campusComment on above:Performed By: #### SPAG #### [facility] [employer] [address] [place] [address] 71951 Hemoglobin mass conc (Bld)10.4 g/dLLow11.9-15.1MMount Zion campusComment on above:Performed By: #### JANNETHG #### [address] 39768 Immature granulocytes #/vol (Bld)3 %Ppjt1JqfguTuscarawas HospitalComment on above:Performed By: #### JANNETHG #### [facility] [employer] [address] [place] [address] 24340 Lymphocytes #/vol (Bld)2.22 10*3/uLNormal1.10-3.70Tuscarawas HospitalComment on above:Performed By: #### SPAG #### [facility] [employer] [address] [place] [address] 13106 Lymphocytes/100 WBC (Bld)29 %Lelofm50-18JrijgTuscarawas HospitalComment on above:Performed By: #### SPAG #### [facility] [employer] [address] [place] [address] 92572 MCH Entitic mass (RBC)27.7 azCrjitn13.2-33.5Tuscarawas HospitalComment on above:Performed By: #### SPAG #### [facility] [employer] [address] [place] [address] 55615 MCHC mass conc (RBC)31.3 g/ySFfeaoc05.4-34.8T[facility]carawas HospitalComment on above:Performed By: #### JANNETHG #### [address] [place] [address] 28371 MCV Entitic volume (RBC)88.3 sROkothe77.6-102.9Tuscarawas HospitalComment on above:Performed By: #### JANNETHG #### [address] [place] [address] 19130 Monocytes #/vol (Bld)0.63 10*3/uLNormal0.10-1.20T[facility]aw[facility] HospitalComment on above:Performed By: #### DIEGO #### [address] [place] [address] 49016 Monocytes/100 WBC (Bld)8 %Normal3-12T[facility]carawas HospitalComment on above:Performed By: #### DIEGO #### [address] [place] [address] 06313 Neutrophil (Seg)57 %Rakchu78-21EdcjuTuscarawas Hospital Comment on above:Performed By: #### JANNETHG #### [address] [place] [address] 61411 NRBC Automated0.0 per 100 WBCNormal0.0T[facility]carawas HospitalComment on above:Performed By: #### SPAG #### [address] [place] [address] 60772 Platelets #/vol (Bld)See Reflexed IPF JwfdzhVtuyas625-002TromxTuscarawas HospitalComment on above:Performed By: #### SPAG #### [address] [place] [address] 25036 RBC #/vol (Bld)3.76 10*6/uLLow3.95-5.11T[facility]awas HospitalComment on above:Performed By: #### DIEGO #### [facility] [address] [place] [address] 14283 WBC #/vol (Bld)7.7 10*3/uLNormal3.5-11.3[facility] Medical CenterComment on above:Performed By: #### DIEGO #### [facility] [employer] [address] [place] [address] 20987 Auto Diff PerformedNOT REPORTEDKettering HealthComment on above:Performed By: #### DIEGO #### [facility] [employer] [address] [place] [address] 33624 Platelet mean volume Entitic volume (Bld)NOT REPORTEDBothwell Regional Health Centeral8.1-13.5 [facility] HospitalComment on above:Performed By: #### DIEGO #### [facility] [employer] [address] [place] [address] 81091 Platelets #/vol (Bld)NOT REPORTEDNoGrand Lake Joint Township District Memorial HospitalComment on above:Performed By: #### DIEGO #### [facility] [address] [place] [address] 19049 RBC morphology finding Nom (Bld)NOT REPORTEDKettering HealthComment on above:Performed By: #### DIEGO #### [facility] [address] [place] [address] 66253 WBC MorphologyNOT REPORTEDKettering Health Comment on above:Performed By: #### DIEGO #### [facility] [employer] [address] [place] [address] 35657 Cult,Bloodon [id number],BloodSpecimen Description .BLOOD Special Requests L AC 6ML Culture NO GROWTH 6 DAYS Report Status FINAL 08/23/2018Kettering HealthComment on above:Performed By: #### DIEGO #### [address] [address] Cult,BloodSpecimen Description .BLOOD Special Requests L FOREARM 6ML Culture NO GROWTH 6 DAYS Report Status FINAL 08/23/2018NormalTuscarawas HospitalComment on above:Performed By: #### SPAG #### [address] [address]265 PLT, Immature Fract.on 78-29-1537Bbrjnait, Fluoresc.113 k/uLLow 138-453MerLos Angeles County Los Amigos Medical CenterComment on above:Performed By: #### SPAG #### [address] 64350 PLT, Immature Fract.3.7 %Normal1.1-10.3[facility] Roseville Medical CenterComment on above:Performed By: #### SPAG #### [address] 76383 CBC with Diffon [id number]. Basophil0.00 k/uLNormal0.0-0.2MMount Zion campusComment on above:Performed By: #### ULAG #### [address] 56465 Abs.Imm.Granulocyte0.30 k/uLNormal0.00-0.30T[facility]carawas HospitalComment on above:Performed By: #### ULAG #### [address] 02409 Abs.Neutrophil (Seg)4.87 k/uLNormal1.8-7.7T[facility]carawas HospitalComment on above:Performed By: #### ULAG #### [address] 81680 Basophils/100 WBC (Bld)0 %Normal0-2MercGardens Regional [facility] [place] Comment on above:Performed By: #### ULAG #### [facility] [employer] [address] [place] [address] 40161 Eosinophils #/vol (Bld)0.00 10*3/uLNormal0.0-0.4T[facility]awas HospitalComment on above:Performed By: #### ULAG #### [facility] [address] [place] [address] 63710 Eosinophils/100 WBC (Bld)0 %Low1-4[facility] Comment on above:Performed By: #### ULAG #### [facility] [address] [place] [address] 77838 Immature granulocytes #/vol (Bld)4 %Uauw6QxjteTuscarawas HospitalComment on above:Performed By: #### ULAG #### [facility] [employer] [address] [place] [address] 22757 Lymphocytes #/vol (Bld)1.88 10*3/uLNormal1.0-4.8T[facility]awas HospitalComment on above:Performed By: #### ULAG #### [facility] [employer] [address] [place] [address] 45352 Lymphocytes/100 WBC (Bld)25 %Jqikgn72-25AocfkTuscarawas HospitalComment on above:Performed By: #### ULAG #### [facility] [employer] [address] [place] [address] 21556 Monocytes #/vol (Bld)0.45 10*3/uLNormal0.1-0.8T[facility]awas HospitalComment on above:Performed By: #### ULAG #### [facility] [employer] [address] [place] [address] 73851 Monocytes/100 WBC (Bld)6 %Normal1-7[facility] Comment on above:Performed By: #### ULAG #### [facility] [employer] [address] [place] [address] 49056 Morphology Interp Rehan (Bld)ANISOCYTOSIS PRESENTNormalTuscarawas HospitalComment on above:Performed By: #### ULAG #### [facility] [address] [place] [address] 57565 Neutrophil (Seg)65 %Boyojt02-87EfgrtTuscarawas Hospital Comment on above:Performed By: #### ULAG #### [facility] [employer] [address] [place] [address] 77166 Erythrocyte distribution width Ratio (RBC)14.5 %High11.8-14.4Tuscarawas HospitalComment on above:Performed By: #### ULAG #### [facility] [address] [place] [address] 04456 Hematocrit Volume Fraction (Bld)38.1 %Hekqrj64.3-47.1MMount Zion campusComment on above:Performed By: #### ULAG #### [facility] [employer] [address] [place] [address] 28092 Hemoglobin mass conc (Bld)11.5 g/dLLow11.9-15.1MMount Zion campusComment on above:Performed By: #### ULAG #### [facility] [employer] [address] [place] [address] 67419 MCH Entitic mass (RBC)28.3 feAjzqqo28.2-33.5Tuscarawas HospitalComment on above:Performed By: #### ULAG #### [facility] [employer] [address] [place] [address] 00221 MCHC mass conc (RBC)30.2 g/yKVdpqwa96.4-34.8Tuscarawas HospitalComment on above:Performed By: #### ULAG #### [facility] [address] [place] [address] 50436 MCV Entitic volume (RBC)93.6 zFXkwlyk67.6-102.9T[facility]awas HospitalComment on above:Performed By: #### ULAG #### [facility] [address] [place] [address] 10565 NRBC Automated0.0 per 100 WBCNormal0.0Tuscarawas HospitalComment on above:Performed By: #### ULAG #### [facility] [employer] [address] [place] [address] 67661 Platelet mean volume Entitic volume (Bld)10.7 fLNormal8.1-13.5Tuscarawas HospitalComment on above:Performed By: #### ULAG #### [address] 16989 Platelets #/vol (Bld)265 10*3/kLLkbtgw400-683VwcmvTuscarawas HospitalComment on above:Performed By: #### ULAG #### [facility] [employer] [address] [place] [address] 04407 RBC #/vol (Bld)4.07 10*6/uLNormal3.95-5.11T[facility]awas HospitalComment on above:Performed By: #### ULAG #### [address] 51051 WBC #/vol (Bld)7.5 10*3/uLNormal3.5-11.3MMount Zion campusComment on above:Performed By: #### ULAG #### [facility] [address] [place] [address] 56424 Auto Diff PerformedNOT REPORTEDBothwell Regional Health CenteralTuscarawas HospitalComment on above:Performed By: #### ULAG #### [address] 12554 Platelets #/vol (Bld)NOT REPORTEDNoGrand Lake Joint Township District Memorial HospitalComment on above:Performed By: #### ULAG #### [facility] [address] [place] [address] 14070 RBC morphology finding Nom (Bld)NOT REPORTEDNoGrand Lake Joint Township District Memorial HospitalComment on above:Performed By: #### ULAG #### [facility] [address] [place] [address] 79920 WBC MorphologyNOT REPORTEDNoGrand Lake Joint Township District Memorial Hospital Comment on above:Performed By: #### ULAG #### [facility] [address] [place] [address] 31815 Comp Metabolic Pr/rfx MGon 69-76-5925Mqkglxx mass conc3.2 g/dLLow 3.5-5.2[facility] Medical CenterComment on above:Performed By: #### ULAG #### [facility] [address] [place] [address] 38913 Albumin/Globulin mass ratio0.8 {ratio}Low1.0-2.5Tuscarawas HospitalComment on above:Performed By: #### ULAG #### [facility] [address] [place] [address] 11598 Alkaline Phos90 U/NMcxpfh95-621WyooqTuscarawas Hospital Comment on above:Performed By: #### ULAG #### [address] [place] [address] 10994 ALT enzyme act/vol18 U/LNormal5-33[facility] Comment on above:Performed By: #### ULAG #### [facility] [address] [place] [address] 21813 AST enzyme act/vol16 U/LNormal<32[facility] Comment on above:Performed By: #### ULAG #### [facility] [address] [place] [address] 74257 Protein mass conc7.0 g/dLNormal6.4-8.3MMount Zion campusComment on above:Performed By: #### ULAG #### [facility] [facility] [place] [address] (cont.)NormalTuscarawas HospitalComment on above: Result Comment: Average GFR for 30-39 years old: 107 mL/min/1.73sq m Chronic Kidney Disease: <60 mL/min/1.73sq m Kidney failure: <15 mL/min/1.73sq m eGFR calculated using average adult body mass. Additional eGFR calculator available at: http://www.[employer]/multiple_crcl_2012.htmPerformed By: #### ULAG #### [address] [place] [address] 24269 Anion gap molar conc15 mmol/LNormal9-17Tuscarawas HospitalComment on above:Performed By: #### ULAG #### [address] [place] [address] 32397 Bilirubin Ql (U)0.34 mg/dLNormal0.3-1.2MMount Zion campusComment on above:Performed By: #### ULAG #### [address] [place] [address] 69069 Calcium mass conc9.7 mg/dLNormal8.6-10.4Tuscarawas HospitalComment on above:Performed By: #### ULAG #### [address] [place] [address] 98925 Chloride molar wlis456 mmol/UWgxxdh83-743QccdfTuscarawas HospitalComment on above:Performed By: #### ULAG #### [address] [place] [address] 05993 CO2 molar conc24 mmol/DPzmuuo01-03AdnszTuscarawas Hospital Comment on above:Performed By: #### ULAG #### [facility] [address] [place] [address] Creatinine mass conc1.02 mg/dLHigh0.50-0.90Tuscarawas HospitalComment on above:Performed By: #### ULAG #### [facility] [facility] [address] [place] [address] 85091 GFR, Amer>60Normal>60Tuscarawas HospitalComment on above:Performed By: #### ULAG #### [facility] [address] [place] [address] 25052 GFR,non Amer>60Normal>60[facility] Comment on above:Performed By: #### ULAG #### [facility] [address] [place] [address] 80407 Glucose mass zkpp858 mg/oXFxld63-12XmkfhMount Zion campus Comment on above:Performed By: #### ULAG #### [facility] [address] [place] [address] 82955 Potassium molar conc4.5 mmol/LNormal3.7-5.3MMount Zion campusComment on above:Performed By: #### ULAG #### [facility] [address] [place] [address] 91760 Sodium molar gbsm396 mmol/EGytkxr610-920EjtawTuscarawas HospitalComment on above:Performed By: #### ULAG #### [facility] [address] [place] [address] 74784 Urea nitrogen mass conc19 mg/dLNormal6-20T[facility]carawas HospitalComment on above:Performed By: #### ULAG #### [facility] [address] [place] [address] 24845 BUN/CRE RatioNOT REPORTEDNormal9-20[facility] Comment on above:Performed By: #### ULAG #### [facility] [address] [place] [address] 59676 Staging:NOT REPORTEDNoGrand Lake Joint Township District Memorial HospitalComment on above:Performed By: #### ULAG #### [facility] [address] [place] [address] 32849 Magnesiumon 96-59-3168Dnzmvpnaj mass conc2.4 mg/dLNormal1.6-2.6 [facility] HospitalComment on above:Performed By: #### ULAG #### [facility] [address] [place] [address] 54088 Vancomycin Troughon 92-05-1827Luvdoiqjwm Iewymz35.2 ug/mLCritically high10.0-20.0Tuscarawas HospitalComment on above:Result Comment: Higher trough serum vancomycin concentrations of 15-20 ug/mL are recommended for complicated infections such as bacteremia, endocarditis, osteomyelitis, meningitis, and hospital acquired pneumonia. ADDED ONPerformed By: #### ULAG #### [facility] [address] [place] [address] 47337 Date last dose,NOT REPORTEDNoGrand Lake Joint Township District Memorial Hospital Comment on above:Performed By: #### ULAG #### [facility] [address] [place] [address] 76954 Dose amount,NOT REPORTEDNormalTuscarawas Hospital Comment on above:Performed By: #### ULAG #### [address] [place] [address] 00795 Time last dose,NOT REPORTEDNoGrand Lake Joint [facility] District [facility] Hospital Comment on above:Performed By: #### ULAG #### [facility] [address] [place] [address] 11164 CBC with Diffon 43-43-2223Jux. Basophil0.08 k/uLNormal0.00-0.20 [facility]as HospitalComment on above:Performed By: #### ULAG #### [address] 67444 Abs.Imm.Granulocyte0.50 k/uLHigh0.00-0.30T[facility]carawas HospitalComment on above:Performed By: #### ULAG #### [address] 84407 Abs.Neutrophil (Seg)4.73 k/uLNormal1.50-8.10Tuscarawas HospitalComment on above:Performed By: #### ULAG #### [address] 79376 Basophils/100 WBC (Bld)1 %Normal0-2MMount Zion campus Comment on above:Performed By: #### ULAG #### [address] 47698 Eosinophils #/vol (Bld)0.17 10*3/uLNormal0.00-0.44Tuscarawas HospitalComment on above:Performed By: #### ULAG #### [address] 25042 Eosinophils/100 WBC (Bld)2 %Normal1-4Tuscarawas HospitalComment on above:Performed By: #### ULAG #### [address] 42467 Immature granulocytes #/vol (Bld)6 %Heyl1EyqmcTuscarawas HospitalComment on above:Performed By: #### ULAG #### [address] 70531 Lymphocytes #/vol (Bld)2.24 10*3/uLNormal1.10-3.70Tuscarawas HospitalComment on above:Performed By: #### ULAG #### [facility] [address] [place] [address] 79351 Lymphocytes/100 WBC (Bld)27 %Slihac79-97OzbtpTuscarawas HospitalComment on above:Performed By: #### ULAG #### [facility] [address] [place] [address] 67211 Monocytes #/vol (Bld)0.58 10*3/uLNormal0.10-1.20T[facility]carawas HospitalComment on above:Performed By: #### ULAG #### [facility] [address] [place] [address] 04185 Monocytes/100 WBC (Bld)7 %Normal3-12T[facility]carawas HospitalComment on above:Performed By: #### ULAG #### [facility] [address] [place] [address] 72284 Morphology Interp Rehan (Bld)ANISOCYTOSIS PRESENTNormalTuscarawas HospitalComment on above:Performed By: #### ULAG #### [facility] [address] [place] [address] 73569 Neutrophil (Seg)57 %Gauuza90-24RmsxyTuscarawas Hospital Comment on above:Performed By: #### ULAG #### [facility] [address] [place] [address] 18559 Erythrocyte distribution width Ratio (RBC)14.6 %High11.8-14.4Tuscarawas HospitalComment on above:Performed By: #### ULAG #### [facility] [address] [place] [address] 44602 Hematocrit Volume Fraction (Bld)38.5 %Xefiwr14.3-47.1MMount Zion campusComment on above:Performed By: #### ULAG #### [facility] [address] [place] [address] 68622 Hemoglobin mass conc (Bld)11.5 g/dLLow11.9-15.1MMount Zion campusComment on above:Performed By: #### ULAG #### [facility] [address] [place] [address] 29750 MCH Entitic mass (RBC)28.2 udCfbwol10.2-33.5Tuscarawas HospitalComment on above:Performed By: #### ULAG #### [address] 29416 MCHC mass conc (RBC)29.9 g/dQKfqjnr31.4-34.8Tuscarawas HospitalComment on above:Performed By: #### ULAG #### [address] 15067 MCV Entitic volume (RBC)94.4 lYHknsnn35.6-102.9Tuscarawas HospitalComment on above:Performed By: #### ULAG #### [address] 64501 NRBC Automated0.0 per 100 WBCNormal0.0Tuscarawas HospitalComment on above:Performed By: #### ULAG #### [address] 27125 Platelet mean volume Entitic volume (Bld)10.5 fLNormal8.1-13.5Tuscarawas HospitalComment on above:Performed By: #### ULAG #### [address] 59424 Platelets #/vol (Bld)264 10*3/fAFxlhrf749-599HxmzyTuscarawas HospitalComment on above:Performed By: #### ULAG #### [facility] [address] [place] [address] 71095 RBC #/vol (Bld)4.08 10*6/uLNormal3.95-5.11Tuscarawas HospitalComment on above:Performed By: #### ULAG #### [address] [place] [address] 83510 WBC #/vol (Bld)8.3 10*3/uLNormal3.5-11.3[facility] Roseville Medical CenterComment on above:Performed By: #### ULAG #### [address] [place] [address] 08407 Auto Diff PerformedNOT REPORTEDKettering HealthComment on above:Performed By: #### ULAG #### [address] [place] [address] 42049 Platelets #/vol (Bld)NOT REPORTEDKettering HealthComment on above:Performed By: #### ULAG #### [address] [place] [address] 32928 RBC morphology finding Nom (Bld)NOT REPORTEDNoGrand Lake Joint Township District Memorial HospitalComment on above:Performed By: #### ULAG #### [address] [place] [address] 55596 WBC MorphologyNOT REPORTEDKettering Health Comment on above:Performed By: #### ULAG #### [address] [place] [address] 90922 Comp Metabolic Pr/rfx MGon 08-21-2018(cont.)Kettering HealthComment on above:Result Comment: Average GFR for 30-39 years old: 107 mL/min/1.73sq m Chronic Kidney Disease: <60 mL/min/1.73sq m Kidney failure: <15 mL/min/1.73sq m eGFR calculated using average adult body mass. Additional eGFR calculator available at: http://www.globalrp.com/multiple_crcl_2012.htmPerformed By: #### ULAG #### [facility] [address] [place] [address] 65086 Albumin mass conc2.9 g/dLLow3.5-5.2MMount Zion campus Comment on above:Performed By: #### ULAG #### [facility] [address] [place] [address] 50231 Albumin/Globulin mass ratio0.7 {ratio}Low1.0-2.5Tuscarawas HospitalComment on above:Performed By: #### ULAG #### [facility] [address] [place] [address] 86059 Alkaline Phos98 U/BMdevul98-134AwstwTuscarawas Hospital Comment on above:Performed By: #### ULAG #### [facility] [address] [place] [address] 91383 ALT enzyme act/vol19 U/LNormal5-33[facility] Comment on above:Performed By: #### ULAG #### [facility] [address] [place] [address] 38003 Anion gap molar conc14 mmol/LNormal9-17Tuscarawas HospitalComment on above:Performed By: #### ULAG #### [facility] [address] [place] [address] 76314 AST enzyme act/vol21 U/LNormal<32[facility] Comment on above:Performed By: #### ULAG #### [facility] [address] [place] [address] 92863 Bilirubin Ql (U)0.32 mg/dLNormal0.3-1.2MMount Zion campusComment on above:Performed By: #### ULAG #### [facility] [address] [place] [address] 52623 Calcium mass conc9.1 mg/dLNormal8.6-10.4Tuscarawas HospitalComment on above:Performed By: #### ULAG #### [address] 30259 Chloride molar hill528 mmol/CLuctwy01-038IgcajTuscarawas HospitalComment on above:Performed By: #### ULAG #### [address] 73147 CO2 molar conc23 mmol/CZhrvkj84-44ChfhbTuscarawas Hospital Comment on above:Performed By: #### ULAG #### [address] 00788 Creatinine mass conc0.90 mg/dLNormal0.50-0.90Tuscarawas HospitalComment on above:Performed By: #### ULAG #### [address] 00047 GFR, Amer>60Normal>60T[facility]carawas HospitalComment on above:Performed By: #### ULAG #### [address] 30072 GFR,non Amer>60Normal>60[facility] Comment on above:Performed By: #### ULAG #### [facility] [address] [place] [address] 27128 Glucose mass njcq614 mg/uADtth70-97IhsytMount Zion campus Comment on above:Performed By: #### ULAG #### [address] 68349 Potassium molar conc4.6 mmol/LNormal3.7-5.3MMount Zion campusComment on above:Performed By: #### ULAG #### [facility] [address] [place] [address] 83718 Protein mass conc6.9 g/dLNormal6.4-8.3[facility]ville Medical CenterComment on above:Performed By: #### ULAG #### [address] [place] [address] 89175 Sodium molar hfll894 mmol/OKenszo287-188OnxmkTuscarawas HospitalComment on above:Performed By: #### ULAG #### [address] [place] [address] 67569 Urea nitrogen mass conc17 mg/dLNormal6-20T[facility]carawas HospitalComment on above:Performed By: #### ULAG #### [address] [place] [address] 62219 BUN/CRE RatioNOT REPORTEDBrewster9-20[facility] Comment on above:Performed By: #### ULAG #### [address] [place] [address] 94571 Staging:NOT REPORTEDNoGrand Lake Joint Township District Memorial HospitalComment on above:Performed By: #### ULAG #### [address] [place] [address] 49822 Cult,Bloodon [id number],BloodSpecimen Description .BLOOD Special Requests L AC 20ML Culture POSITIVE Blood Culture CALLED TO MIS Medina [phone] DIRECT GRAM STAIN FROM BOTTLE: GRAM POSITIVE COCCI IN CLUSTERS METHICILLIN RESISTANT STAPHYLOCOCCUS AUREUS For susceptibility, refer to previous culture. Report Status FINAL 08/21/2018Kettering HealthComment on above:Performed By: #### ULAG #### [address] [place] [address] 91613 MRI FOOT LEFT W WO CONTRASTon [id number] FOOT LEFT W WO CONTRAST EXAMINATION: MRI [...] by: Murali Goff MD 08/21/18 Final resultNormalMercy Sutter Roseville Medical CenterMagnesiumon 08-21-2018 Magnesium mass conc2.4 mg/dLNormal1.6-2.6[facility] Medical CenterComment on above:Performed By: #### ULAG #### [facility] [address] [place] [address] Procalcitoninon 17-68-7601Fanwosj mass conc0.27 ng/mLHigh<0.09[facility]ville Medical CenterComment on above:Result Comment: Suspected Sepsis: [...] entered into the Change in Procalcitonin Calculator (www.yathly-xda-xymgrmmvzg.com) to determine the patient's Mortality Risk PrognosisPerformed By: #### SEBAG #### [facility] [address] [place] [address] [phone]-Fpdvoznp Proteinon 59-04-0704HLV mass conc50.4 mg/LHigh0.0-5.0 [facility] HospitalComment on above:Performed By: #### LALO, TROPI, PRCAL, MYCM #### [address] [place] [address] CBC with Diffon [id number]. Basophil0.08 k/uLNormal0.0-0.2Mblanchard valley health system bluffton hospitaly [facility] Roseville Medical CenterComment on above:Performed By: #### LALO, TROPI, PRCAL, MYCM #### [address] [place], [place] [address] Abs.Imm.Granulocyte0.42 k/uLHigh0.00-0.30MerLos Angeles County Los Amigos Medical CenterComment on above:Performed By: #### LALO, DAMIENI, PRCAL, MYCM #### [address] 23319 Abs.Neutrophil (Seg)4.57 k/uLNormal1.8-7.7Tuscarawas HospitalComment on above:Performed By: #### LALO, TROPI, PRCAL, MYCM #### [address] 67657 Basophils/100 WBC (Bld)1 %Normal0-2MMount Zion campus Comment on above:Performed By: #### LALO, TROPI, PRCAL, MYCM #### [place] [address] Eosinophils #/vol (Bld)0.25 10*3/uLNormal0.0-0.4Tuscarawas HospitalComment on above:Performed By: #### LALO, DAMIENI, PRCAL, MYCM #### [address] 04773 Eosinophils/100 WBC (Bld)3 %Normal1-4Tuscarawas HospitalComment on above:Performed By: #### LALO, TROPI, PRCAL, MYCM #### [address] 62183 Immature granulocytes #/vol (Bld)5 %Dfpm9YstsbLos Angeles County Los Amigos Medical CenterComment on above:Performed By: #### LALO, TROPI, PRCAL, MYCM #### [address] 77673 Lymphocytes #/vol (Bld)2.32 10*3/uLNormal1.0-4.8Tuscarawas HospitalComment on above:Performed By: #### LACDS, TROPI, PRCAL, MYCM #### [facility] [address] [place] [address] 65013 Lymphocytes/100 WBC (Bld)28 %Imvxvi03-13AtjdrTuscarawas HospitalComment on above:Performed By: #### LACDS, TROPI, PRCAL, MYCM #### [facility] [address] [place] [address] 12591 Monocytes #/vol (Bld)0.66 10*3/uLNormal0.1-0.8T[facility]carawas HospitalComment on above:Performed By: #### LACDS, TROPI, PRCAL, MYCM #### [facility] [address] [place] [address] 91767 Monocytes/100 WBC (Bld)8 %High1-7[facility] Comment on above:Performed By: #### LACDS, TROPI, PRCAL, MYCM #### [address] [place] [address] 58304 Morphology Interp Rehan (Bld)ANISOCYTOSIS PRESENTNormalTuscarawas HospitalComment on above:Performed By: #### LACDS, TROPI, PRCAL, MYCM #### [facility] [address] [place] [address] 41444 Neutrophil (Seg)55 %Ipczof20-31HzvxtTuscarawas Hospital Comment on above:Performed By: #### LACDS, TROPI, PRCAL, MYCM #### [address] [place] [address] 02927 Erythrocyte distribution width Ratio (RBC)14.6 %High11.8-14.4Tuscarawas HospitalComment on above:Performed By: #### LACDS, TROPI, PRCAL, MYCM #### [facility] [address] [place] [address] 06146 Hematocrit Volume Fraction (Bld)33.5 %Low36.3-47.1MMount Zion campusComment on above:Performed By: #### LALO, TROPI, PRCAL, MYCM #### [facility] [address] [place] [address] 14592 Hemoglobin mass conc (Bld)10.2 g/dLLow11.9-15.1MMount Zion campusComment on above:Performed By: #### LACREY, TROPI, PRCAL, MYCM #### [facility] [address] [place] [address] 76083 MCH Entitic mass (RBC)27.9 duPwxoyt03.2-33.5Tuscarawas HospitalComment on above:Performed By: #### LALO, TROPI, PRCAL, MYCM #### [facility] [address] [place] [address] 20565 MCHC mass conc (RBC)30.4 g/rFQevoxm29.4-34.8T[facility]carawas HospitalComment on above:Performed By: #### LALO, TROPI, PRCAL, MYCM #### [facility] [address] [place] [address] 44511 MCV Entitic volume (RBC)91.5 kNCugjtk57.6-102.9T[facility]carawas HospitalComment on above:Performed By: #### LACREY, TROPI, PRCAL, MYCM #### [facility] [address] [place] [address] 03715 NRBC Automated0.0 per 100 WBCNormal0.0Tuscarawas HospitalComment on above:Performed By: #### LACREY, TROPI, PRCAL, MYCM #### [facility] [address] [place] [address] 03080 Platelet mean volume Entitic volume (Bld)11.0 fLNormal8.1-13.5Tuscarawas HospitalComment on above:Performed By: #### LACDS, TROPI, PRCAL, MYCM #### [address] [place] [address] 80435 Platelets #/vol (Bld)211 10*3/tGBtndwk500-427YucscTuscarawas HospitalComment on above:Performed By: #### LACDS, TROPI, PRCAL, MYCM #### [facility] [address] [place] [address] 06769 RBC #/vol (Bld)3.66 10*6/uLLow3.95-5.11T[facility]carawas HospitalComment on above:Performed By: #### LACDS, TROPI, PRCAL, MYCM #### [address] [place] [address] 19988 WBC #/vol (Bld)8.3 10*3/uLNormal3.5-11.3MMount Zion campusComment on above:Performed By: #### LACDS, TROPI, PRCAL, MYCM #### [address] [place] [address] 11045 Auto Diff PerformedNOT REPORTEDNoalTuscarawas HospitalComment on above:Performed By: #### LACDS, TROPI, PRCAL, MYCM #### [address] [place] [address] 93212 Platelets #/vol (Bld)NOT REPORTEDNoGrand Lake Joint Township District Memorial HospitalComment on above:Performed By: #### LACDS, TROPI, PRCAL, MYCM #### [address] [place] [address] 12187 RBC morphology finding Nom (Bld)NOT REPORTEDNormalTuscarawas HospitalComment on above:Performed By: #### LACDS, TROPI, PRCAL, MYCM #### [address] [place] [address] 42093 WBC MorphologyNOT REPORTEDNormalTuscarawas Hospital Comment on above:Performed By: #### GRACE MAY PRCAL, MYCM #### [facility] [address] [place] [address] 82668 Comp Metabolic Pr/rfx MGon 08-20-2018(cont.)NormalTuscarawas HospitalComment on above:Result Comment: Average GFR for 30-39 years old: 107 mL/min/1.73sq m Chronic Kidney Disease: <60 mL/min/1.73sq m Kidney failure: <15 mL/min/1.73sq m eGFR calculated using average adult body mass. Additional eGFR calculator available at: http://www.[employer]/multiple_crcl_2012.htmPerformed By: #### GRACE MAY PRCAL, MYCM #### [facility] [address] [place] [address] 96034 Albumin mass conc3.1 g/dLLow3.5-5.2MMount Zion campus Comment on above:Performed By: #### GRACE MAY, PRCAL, MYCM #### [address] [place] [address] 96710 Albumin/Globulin mass ratio0.9 {ratio}Low1.0-2.5Tuscarawas HospitalComment on above:Performed By: #### DAMIEN MAYI, PRCAL, MYCM #### [address] [place] [address] 19261 Alkaline Phos83 U/MMhbsii60-433YbppeTuscarawas Hospital Comment on above:Performed By: #### GRACE MAY, PRCAL, MYCM #### [address] [place] [address] 23808 ALT enzyme act/vol17 U/LNormal5-33[facility] Comment on above:Performed By: #### GRACE MAY, PRCAL, MYCM #### [facility] [place] [address] Anion gap molar conc11 mmol/LNormal9-17T[facility]carawas HospitalComment on above:Performed By: #### LACDS, TROPI, PRCAL, MYCM #### [facility] [address] [place] [address] 94945 AST enzyme act/vol18 U/LNormal<32[facility] Comment on above:Performed By: #### LACDS, TROPI, PRCAL, MYCM #### [facility] [address] [place] [address] 30218 Bilirubin Ql (U)0.29 mg/dLLow0.3-1.2MMount Zion campusComment on above:Performed By: #### LACDS, TROPI, PRCAL, MYCM #### [facility] [address] [place] [address] 91549 Calcium mass conc9.0 mg/dLNormal8.6-10.4T[facility]carawas HospitalComment on above:Performed By: #### LACDS, TROPI, PRCAL, MYCM #### [facility] [address] [place] [address] 16427 Chloride molar iqqj499 mmol/AEngkse38-545ZlgzdTuscarawas HospitalComment on above:Performed By: #### LACDS, TROPI, PRCAL, MYCM #### [facility] [address] [place] [address] 82488 CO2 molar conc27 mmol/RMmbidc44-88OilhiTuscarawas Hospital Comment on above:Performed By: #### LACDS, TROPI, PRCAL, MYCM #### [facility] [address] [place] [address] 36444 Creatinine mass conc0.97 mg/dLHigh0.50-0.90Tuscarawas HospitalComment on above:Performed By: #### LACDS, TROPI, PRCAL, MYCM #### [facility] [address] [place] [address] 73752 GFR, Amer>60Normal>60[facility] Medical CenterComment on above:Performed By: #### LACDS, TROPI, PRCAL, MYCM #### [facility] [address] [place] [address] 69275 GFR,non Amer>60Normal>60[facility] Comment on above:Performed By: #### LACDS, TROPI, PRCAL, MYCM #### [facility] [address] [place] [address] 88179 Glucose mass wygi724 mg/pYCpvj98-21Wvxep [facility] Comment on above:Performed By: #### LACDS, TROPI, PRCAL, MYCM #### [facility] [address] [place] [address] 72085 Potassium molar conc4.4 mmol/LNormal3.7-5.3[facility] Medical CenterComment on above:Performed By: #### LACDS, TROPI, PRCAL, MYCM #### [facility] [address] [place] [address] 05729 Protein mass conc6.6 g/dLNormal6.4-8.3[facility] Medical CenterComment on above:Performed By: #### LACDS, TROPI, PRCAL, MYCM #### [facility] [address] [place] [address] 97278 Sodium molar dyso665 mmol/FZdvukm042-022Zhrkg [facility] CenterComment on above:Performed By: #### LACDS, TROPI, PRCAL, MYCM #### [facility] [address] [place] [address] 45412 Urea nitrogen mass conc15 mg/dLNormal6-20[facility] CenterComment on above:Performed By: #### LACDS, TROPI, PRCAL, MYCM #### [facility] [address] [place] [address] 18013 BUN/CRE RatioNOT REPORTEDNormal9-20[facility] Comment on above:Performed By: #### LACDS, TROPI, PRCAL, MYCM #### [facility] [address] [place] [address] 00770 Staging:NOT REPORTEDNoGrand Lake Joint Township District Memorial HospitalComment on above:Performed By: #### LACDS, TROPI, PRCAL, MYCM #### [facility] [address] [place] [address] 60566 Magnesiumon 70-90-9896Nobelpvpl mass conc2.2 mg/dLNormal1.6-2.6 [facility] HospitalComment on above:Performed By: #### LACDS, TROPI, PRCAL, MYCM #### [facility] [address] [place] [address] 45524 Sedimentation Rateon 69-32-5214Hphbpexvuepdg Nzyk886 mmHigh0-20 [facility] HospitalComment on above:Performed By: #### LACDS, TROPI, PRCAL, MYCM #### [facility] [address] [place] [address] 97433 XR FOOT LEFT (MIN 3 VIEWS)on 65-83-1861ZH FOOT LEFT (MIN 3 VIEWS) EXAMINATION: 3 [...] Signed by: Andrey Angelo MD 08/20/18 Final resultNoGrand Lake Joint Township District Memorial HospitalCBC with Diffon [id number]. Basophil0.00 k/uLNormal0.0-0.2MMount Zion campusComment on above: Performed By: #### LALO, TROPI, PRCAL, MYCM #### [facility] [address] [place] [address] 09204 Abs.Imm.Granulocyte0.42 k/uLHigh0.00-0.30T[facility]aw[facility] HospitalComment on above:Performed By: #### LALO, TROPI, PRCAL, MYCM #### [facility] [address] [place] [address] 52759 Abs.Neutrophil (Seg)2.70 k/uLNormal1.8-7.7Tuscarawas HospitalComment on above:Performed By: #### LALO, TROPI, PRCAL, MYCM #### [facility] [address] [place] [address] 50154 Basophils/100 WBC (Bld)0 %Normal0-2MMount Zion campus Comment on above:Performed By: #### LALO, TROPI, PRCAL, MYCM #### [facility] [address] [place] [address] 33392 Eosinophils #/vol (Bld)0.30 10*3/uLNormal0.0-0.4Tuscarawas HospitalComment on above:Performed By: #### LACDS, TROPI, PRCAL, MYCM #### [address] [place] [address] 56987 Eosinophils/100 WBC (Bld)5 %High1-4[facility] Comment on above:Performed By: #### LACDS, TROPI, PRCAL, MYCM #### [facility] [address] [place] [address] 05758 Immature granulocytes #/vol (Bld)7 %Utgo9UsqilTuscarawas HospitalComment on above:Performed By: #### LACDS, TROPI, PRCAL, MYCM #### [facility] [address] [place] [address] 49137 Lymphocytes #/vol (Bld)2.22 10*3/uLNormal1.0-4.8Tuscarawas HospitalComment on above:Performed By: #### LACDS, TROPI, PRCAL, MYCM #### [facility] [employer] [address] [place] [address] 30720 Lymphocytes/100 WBC (Bld)37 %Qbubyc58-52PfvnoTuscarawas HospitalComment on above:Performed By: #### LACDS, TROPI, PRCAL, MYCM #### [facility] [address] [place] [address] 65526 Monocytes #/vol (Bld)0.36 10*3/uLNormal0.1-0.8Tuscarawas HospitalComment on above:Performed By: #### LACDS, TROPI, PRCAL, MYCM #### [facility] [address] [place] [address] 62963 Monocytes/100 WBC (Bld)6 %Normal1-7[facility] Comment on above:Performed By: #### LACDS, TROPI, PRCAL, MYCM #### [facility] [address] [place] [address] 45109 Morphology Interp Rehan (Bld)ANISOCYTOSIS PRESENTNormalTuscarawas HospitalComment on above:Performed By: #### LACDS, TROPI, PRCAL, MYCM #### [address] [place] [address] 26498 Neutrophil (Seg)45 %Lcocis57-96KzubjTuscarawas Hospital Comment on above:Performed By: #### LACDS, TROPI, PRCAL, MYCM #### [address] [place] [address] 49647 Erythrocyte distribution width Ratio (RBC)14.6 %High11.8-14.4Tuscarawas HospitalComment on above:Performed By: #### LACDS, TROPI, PRCAL, MYCM #### [facility] [employer] [address] [place] [address] 29720 Hematocrit Volume Fraction (Bld)34.4 %Low36.3-47.1MMount Zion campusComment on above:Performed By: #### LACDS, TROPI, PRCAL, MYCM #### [facility] [employer] [address] [place] [address] 75259 Hemoglobin mass conc (Bld)10.4 g/dLLow11.9-15.1MMount Zion campusComment on above:Performed By: #### LACDS, TROPI, PRCAL, MYCM #### [facility] [employer] [address] [place] [address] 98517 MCH Entitic mass (RBC)28.0 ttDhugxq56.2-33.5Tuscarawas HospitalComment on above:Performed By: #### LACDS, TROPI, PRCAL, MYCM #### [facility] [employer] [address] [place] [address] 01883 MCHC mass conc (RBC)30.2 g/dEZatxlx83.4-34.8Tuscarawas HospitalComment on above:Performed By: #### LACDS, TROPI, PRCAL, MYCM #### [facility] [employer] [address] [place] [address] 90043 MCV Entitic volume (RBC)92.7 kGDbktgr55.6-102.9Tuscarawas HospitalComment on above:Performed By: #### LACDS, TROPI, PRCAL, MYCM #### [facility] [employer] [address] [place] [address] 21063 NRBC Automated0.3 per 100 WBCHigh0.0Tuscarawas HospitalComment on above:Performed By: #### LACDS, TROPI, PRCAL, MYCM #### [address] [place] [address] 80982 Platelet mean volume Entitic volume (Bld)10.5 fLNormal8.1-13.5Tuscarawas HospitalComment on above:Performed By: #### LACDS, TROPI, PRCAL, MYCM #### [address] [place] [address] 64605 Platelets #/vol (Bld)168 10*3/yNFnatvx465-509PggkwTuscarawas HospitalComment on above:Performed By: #### LACDS, TROPI, PRCAL, MYCM #### [address] [place] [address] 61017 RBC #/vol (Bld)3.71 10*6/uLLow3.95-5.11Tuscarawas HospitalComment on above:Performed By: #### LACDS, TROPI, PRCAL, MYCM #### [address] [place] [address] 46789 WBC #/vol (Bld)6.0 10*3/uLNormal3.5-11.3MercGardens Regional Hospital & Medical Center - Hawaiian GardensComment on above:Performed By: #### LACDS, TROPI, PRCAL, MYCM #### [address] [place] [address] 74243 Auto Diff PerformedNOT REPORTEDKettering HealthComment on above:Performed By: #### LACDS, TROPI, PRCAL, MYCM #### [address] [place] [address] 24641 Platelets #/vol (Bld)NOT REPORTEDKettering HealthComment on above:Performed By: #### LACDS, TROPI, PRCAL, MYCM #### [address] [facility] [place] [address] RBC morphology finding Nom (Bld)NOT REPORTEDNoGrand Lake Joint Township District Memorial HospitalComment on above:Performed By: #### LACDS, TROPI, PRCAL, MYCM #### [address] [place] [address] 04382 WBC MorphologyNOT REPORTEDNormalTuscarawas Hospital Comment on above:Performed By: #### LACDS, TROPI, PRCAL, MYCM #### [address] [place] [address] 74742 Comp Metabolic Pr/rfx MGon 08-19-2018(cont.)NormalTuscarawas HospitalComment on above:Result Comment: Average GFR for 30-39 years old: 107 mL/min/1.73sq m Chronic Kidney Disease: <60 mL/min/1.73sq m Kidney failure: <15 mL/min/1.73sq m eGFR calculated using average adult body mass. Additional eGFR calculator available at: http://www.[employer]/multiple_crcl_2012.htmPerformed By: #### LACDS, TROPI, PRCAL, MYCM #### [address] [facility] [place] [address] Albumin mass conc2.7 g/dLLow3.5-5.2[facility] Comment on above:Performed By: #### LACDS, TROPI, PRCAL, MYCM #### [address] [facility] [place] [address] Albumin/Globulin mass ratio0.8 {ratio}Low1.0-2.5Tuscarawas HospitalComment on above:Performed By: #### LACDS, TROPI, PRCAL, MYCM #### [address] [place] [address] 63055 Alkaline Phos78 U/VUfcbxt19-279JrhtoTuscarawas Hospital Comment on above:Performed By: #### LACDS, TROPI, PRCAL, MYCM #### [facility] [employer] [address] [place] [address] 11587 ALT enzyme act/vol16 U/LNormal5-33[facility] Comment on above:Performed By: #### LACDS, TROPI, PRCAL, MYCM #### [facility] [address] [place] [address] 88585 Anion gap molar conc10 mmol/LNormal9-17Tuscarawas HospitalComment on above:Performed By: #### LACDS, TROPI, PRCAL, MYCM #### [facility] [employer] [address] [place] [address] 20680 AST enzyme act/vol16 U/LNormal<32[facility] Comment on above:Performed By: #### LACDS, TROPI, PRCAL, MYCM #### [facility] [address] [place] [address] 34724 Bilirubin Ql (U)0.21 mg/dLLow0.3-1.2MMount Zion campusComment on above:Performed By: #### LACDS, TROPI, PRCAL, MYCM #### [facility] [address] [place] [address] 72113 Calcium mass conc8.5 mg/dLLow8.6-10.4Tuscarawas HospitalComment on above:Performed By: #### LACDS, TROPI, PRCAL, MYCM #### [address] [place] [address] 15318 Chloride molar ueys742 mmol/QPmecfb38-299EstexTuscarawas HospitalComment on above:Performed By: #### LACDS, TROPI, PRCAL, MYCM #### [address] [place] [address] 76862 CO2 molar conc24 mmol/VJroxpq08-53TlrnhTuscarawas Hospital Comment on above:Performed By: #### LACDS, TROPI, PRCAL, MYCM #### [facility] [employer] [address] [place] [address] 33297 Creatinine mass conc0.88 mg/dLNormal0.50-0.90Tuscarawas HospitalComment on above:Performed By: #### LACDS, TROPI, PRCAL, MYCM #### [facility] [employer] [address] [place] [address] 41587 GFR, Amer>60Normal>60Tuscarawas HospitalComment on above:Performed By: #### LACDS, TROPI, PRCAL, MYCM #### [facility] [employer] [address] [place] [address] 29834 GFR,non Amer>60Normal>60[facility] Comment on above:Performed By: #### LACDS, TROPI, PRCAL, MYCM #### [facility] [employer] [address] [place] [address] 25951 Glucose mass lnms455 mg/vWFeqc86-61QjjyiMount Zion campus Comment on above:Performed By: #### LACDS, TROPI, PRCAL, MYCM #### [facility] [employer] [address] [place] [address] 60304 Potassium molar conc4.0 mmol/LNormal3.7-5.3MMount Zion campusComment on above:Performed By: #### LACDS, TROPI, PRCAL, MYCM #### [facility] [address] [place] [address] 66272 Protein mass conc6.3 g/dLLow6.4-8.3Mblanchard valley health system [facility] hospitaly [facility] Comment on above:Performed By: #### LACDS, TROPI, PRCAL, MYCM #### [facility] [employer] [address] [place] [address] 12557 Sodium molar dqmp179 mmol/KTvzdby083-841OtygfTuscarawas HospitalComment on above:Performed By: #### LALO, TROPI, PRCAL, MYCM #### [address] [place] [address] Urea nitrogen mass conc16 mg/dLNormal6-20Tuscarawas HospitalComment on above:Performed By: #### LACREY, TROPI, PRCAL, MYCM #### [address] [facility] [place] [address] BUN/CRE RatioNOT REPORTEDNormal9-20[facility] Comment on above:Performed By: #### LALO, TROPI, PRCAL, MYCM #### [address] [place] [address] 94940 Staging:NOT REPORTEDNormMercy Health Willard HospitalComment on above:Performed By: #### LACREY, TROPI, PRCAL, MYCM #### [address] [place] [address] 25506 Cult, Bloodon [id number], BloodSpecimen Description .BLOOD Special Requests L HAND [...] NOT REPORTED Trimethoprim/Sulfa <=10 SUSCEPTIBLE Vancomycin 1 SUSCEPTIBLENoGrand Lake Joint Township District Memorial HospitalComment on above: Performed By: #### LACDS, TROPI, PRCAL, MYCM #### [address] [place] [address] MRI CERVICAL SPINE W WO CONTRASTon [id number] CERVICAL SPINE W WO CONTRASTEXAMINATION: MRI OF [...] Signed by: Bo Rodrigues MD 08/19/18 Final resultNormalMerLos Angeles County Los Amigos Medical CenterMRI LUMBAR SPINE W WO CONTRAST on 18-04-3313IZM LUMBAR SPINE W WO CONTRASTEXAMINATION: MRI OF [...] by: Bo Rodrigues MD 08/19/18 Final resultNormalMercy Daniel [facility] Hospital THORACIC SPINE W WO CONTRASTon 15-72-3192DMW THORACIC SPINE W WO CONTRASTEXAMINATION: MRI OF [...] by: Bo Rodrigues MD 08/19/18 Final resultNormalMercy [facility] Roseville Medical CenterMagnesiumon 08-19-2018 Magnesium mass conc2.3 mg/dLNormal1.6-2.6[facility] Medical CenterComment on above:Performed By: #### GRACE MAY PRCAL, MARYCRUZM #### [address] [place] [address] Procalcitoninon 12-61-5964Ootwdlu mass conc0.57 ng/mLHigh<0.09MerLos Angeles County Los Amigos Medical CenterComment on above:Result Comment: Suspected Sepsis: [...] entered into the Change in Procalcitonin Calculator (www.lwulji-drv-jcwnolmaov.com) to determine the patient's Mortality Risk PrognosisPerformed By: #### GRACE MAY PRCAL, MARYCRUZM #### [address] [place] [address] CBC with Diffon [id number]. Basophil<0.64Shogsk6.00-0.20MerLos Angeles County Los Amigos Medical CenterComment on above:Performed By: #### GRACE MAY PRCAL, JAZMYN #### [address] [place] [address] Abs.Imm.Granulocyte0.28 k/uLNormal0.00-0.30MerLos Angeles County Los Amigos Medical CenterComment on above:Performed By: #### DAMIEN MAYI, PRCAL, MYCM #### [facility] [address] [place] [address] 76082 Abs.Neutrophil (Seg)3.23 k/uLNormal1.50-8.10Tuscarawas HospitalComment on above:Performed By: #### LACDS, TROPI, PRCAL, MYCM #### [facility] [employer] [address] [place] [address] 98238 Basophils/100 WBC (Bld)0 %Normal0-2[facility] Comment on above:Performed By: #### LACDS, TROPI, PRCAL, MYCM #### [facility] [employer] [address] [place] [address] 27822 Eosinophils #/vol (Bld)0.15 10*3/uLNormal0.00-0.44Tuscarawas HospitalComment on above:Performed By: #### LACDS, TROPI, PRCAL, MYCM #### [facility] [employer] [address] [place] [address] 71205 Eosinophils/100 WBC (Bld)3 %Normal1-4Tuscarawas HospitalComment on above:Performed By: #### LACDS, TROPI, PRCAL, MYCM #### [facility] [address] [place] [address] 36632 Erythrocyte distribution width Ratio (RBC)14.7 %High11.8-14.4Tuscarawas HospitalComment on above:Performed By: #### LACDS, TROPI, PRCAL, MYCM #### [facility] [employer] [address] [place] [address] 89220 Hematocrit Volume Fraction (Bld)32.7 %Low36.3-47.1MercGardens Regional Hospital & Medical Center - Hawaiian GardensComment on above:Performed By: #### LACDS, TROPI, PRCAL, MYCM #### [facility] [address] [place] [address] 59675 Hemoglobin mass conc (Bld)10.1 g/dLLow11.9-15.1Mblanchard valley health system bluff[facility] hospitaly [facility] Medical CenterComment on above:Performed By: #### LACREY, TROPI, PRCAL, MYCM #### [facility] [employer] [address] [place] [address] 67275 Immature granulocytes #/vol (Bld)5 %Swey8UcfkgTuscarawas HospitalComment on above:Performed By: #### LACREY, TROPI, PRCAL, MYCM #### [facility] [employer] [address] [place] [address] 74151 Lymphocytes #/vol (Bld)1.58 10*3/uLNormal1.10-3.70Tuscarawas HospitalComment on above:Performed By: #### LACERY, TROPI, PRCAL, MYCM #### [facility] [employer] [address] [place] [address] 92788 Lymphocytes/100 WBC (Bld)28 %Epdpag00-32TzkryTuscarawas HospitalComment on above:Performed By: #### LALO, TROPI, PRCAL, MYCM #### [facility] [employer] [address] [place] [address] 35829 MCH Entitic mass (RBC)28.2 upJmkkxq45.2-33.5Tuscarawas HospitalComment on above:Performed By: #### LACREY, TROPI, PRCAL, MYCM #### [facility] [employer] [address] [place] [address] 47434 MCHC mass conc (RBC)30.9 g/vCTyxnmg00.4-34.8Tuscarawas HospitalComment on above:Performed By: #### LACDS, TROPI, PRCAL, MYCM #### [facility] [employer] [address] [place] [address] 52367 MCV Entitic volume (RBC)91.3 cUYcgljr64.6-102.9Tuscarawas HospitalComment on above:Performed By: #### LACDS, TROPI, PRCAL, MYCM #### [facility] [address] [place] [address] 61683 Monocytes #/vol (Bld)0.47 10*3/uLNormal0.10-1.20Tuscarawas HospitalComment on above:Performed By: #### LACDS, TROPI, PRCAL, MYCM #### [facility] [employer] [address] [place] [address] 09457 Monocytes/100 WBC (Bld)8 %Normal3-12Tuscarawas HospitalComment on above:Performed By: #### LACDS, TROPI, PRCAL, MYCM #### [facility] [address] [place] [address] 08165 Neutrophil (Seg)56 %Gzecik24-62UuibnTuscarawas Hospital Comment on above:Performed By: #### LACDS, TROPI, PRCAL, MYCM #### [facility] [employer] [address] [place] [address] 60237 NRBC Automated0.0 per 100 WBCNormal0.0Tuscarawas HospitalComment on above:Performed By: #### LACDS, TROPI, PRCAL, MYCM #### [address] [address] Platelet mean volume Entitic volume (Bld)11.4 fLNormal8.1-13.5Tuscarawas HospitalComment on above:Performed By: #### LACDS, TROPI, PRCAL, MYCM #### [facility] [employer] [address] [place] [address] 24294 Platelets #/vol (Bld)153 10*3/wJSmwqjg911-899KviizTuscarawas HospitalComment on above:Performed By: #### LACDS, TROPI, PRCAL, MYCM #### [address] [place] [address] 74884 RBC #/vol (Bld)3.58 10*6/uLLow3.95-5.11Tuscarawas HospitalComment on above:Performed By: #### LACDS, TROPI, PRCAL, MYCM #### [address] [place] [address] 68590 RBC morphology finding Nom (Bld)ANISOCYTOSIS PRESENTNormalTuscarawas HospitalComment on above:Performed By: #### LACDS, TROPI, PRCAL, MYCM #### [facility] [employer] [address] [place] [address] 84247 WBC #/vol (Bld)5.7 10*3/uLNormal3.5-11.3[facility] Medical CenterComment on above:Performed By: #### LACDS, TROPI, PRCAL, MYCM #### [address] [place] [address] 91673 Auto Diff PerformedNOT REPORTEDNormMercy Health Willard HospitalComment on above:Performed By: #### LACDS, TROPI, PRCAL, MYCM #### [address] [place] [address] 29907 Platelets #/vol (Bld)NOT REPORTEDNormMercy Health Willard HospitalComment on above:Performed By: #### LACDS, TROPI, PRCAL, MYCM #### [address] [place] [address] 75674 WBC MorphologyNOT REPORTEDNoGrand Lake Joint Township District Memorial Hospital Comment on above:Performed By: #### LACDS, TROPI, PRCAL, MYCM #### [address] [place] [address] 28079 Comp Metabolic Pr/rfx MGon 08-18-2018(cont.)NormalTuscarawas HospitalComment on above:Result Comment: Average GFR for 30-39 years old: 107 mL/min/1.73sq m Chronic Kidney Disease: <60 mL/min/1.73sq m Kidney failure: <15 mL/min/1.73sq m eGFR calculated using average adult body mass. Additional eGFR calculator available at: http://www.[employer]/multiple_crcl_2012.htmPerformed By: #### LACDS, TROPI, PRCAL, MYCM #### [facility] [address] [place] [address] 11621 Albumin mass conc2.7 g/dLLow3.5-5.2Mblanchard valley health system [facility] hospitaly [facility] Comment on above:Performed By: #### LACDS, TROPI, PRCAL, MYCM #### [facility] [address] [place] [address] 65048 Albumin/Globulin mass ratio0.8 {ratio}Low1.0-2.5Tuscarawas HospitalComment on above:Performed By: #### LACDS, TROPI, PRCAL, MYCM #### [address] [place] [address] 84181 Alkaline Phos82 U/NIlremd57-824OicwhTuscarawas Hospital Comment on above:Performed By: #### LACDS, TROPI, PRCAL, MYCM #### [facility] [address] [place] [address] 70301 ALT enzyme act/vol19 U/LNormal5-33[facility] Comment on above:Performed By: #### LACDS, TROPI, PRCAL, MYCM #### [address] [place] [address] 78709 Anion gap molar conc8 mmol/LLow9-17[facility] Comment on above:Performed By: #### LACDS, TROPI, PRCAL, MYCM #### [address] [place] [address] 32950 AST enzyme act/vol17 U/LNormal<32[facility] Comment on above:Performed By: #### LACDS, TROPI, PRCAL, MYCM #### [facility] [address] [place] [address] 09199 Bilirubin Ql (U)0.24 mg/dLLow0.3-1.2MMount Zion campusComment on above:Performed By: #### LACDS, TROPI, PRCAL, MYCM #### [facility] [address] [place] [address] 48482 Calcium mass conc8.2 mg/dLLow8.6-10.4Tuscarawas HospitalComment on above:Performed By: #### LACDS, TROPI, PRCAL, MYCM #### [facility] [employer] [address] [place] [address] 15618 Chloride molar gsiy368 mmol/OKgbgqm41-072CfdyfTuscarawas HospitalComment on above:Performed By: #### LACDS, TROPI, PRCAL, MYCM #### [facility] [address] [place] [address] 97037 CO2 molar conc25 mmol/VHdzceq56-73BfqjoTuscarawas Hospital Comment on above:Performed By: #### LACDS, TROPI, PRCAL, MYCM #### [facility] [address] [place] [address] 85569 Creatinine mass conc0.94 mg/dLHigh0.50-0.90Tuscarawas HospitalComment on above:Performed By: #### LACDS, TROPI, PRCAL, MYCM #### [facility] [address] [place] [address] 22342 GFR, Amer>60Normal>60MerLos Angeles County Los Amigos Medical CenterComment on above:Performed By: #### LACDS, TROPI, PRCAL, MYCM #### [facility] [address] [place] [address] 53766 GFR,non Amer>60Normal>60[facility] Comment on above:Performed By: #### LACDS, TROPI, PRCAL, MYCM #### [facility] [address] [place] [address] 87992 Glucose mass xqmb769 mg/iTKzud29-18ZakjxMount Zion campus Comment on above:Performed By: #### LACDS, TROPI, PRCAL, MYCM #### [facility] [employer] [address] [place] [address] 50267 Potassium molar conc4.1 mmol/LNormal3.7-5.3MMount Zion campusComment on above:Performed By: #### LACDS, TROPI, PRCAL, MYCM #### [facility] [address] [place] [address] 16571 Protein mass conc6.2 g/dLLow6.4-8.3MMount Zion campus Comment on above:Performed By: #### LACDS, TROPI, PRCAL, MYCM #### [facility] [employer] [address] [place] [address] 42884 Sodium molar dbcd210 mmol/JEoudyk938-825BpbjnTuscarawas HospitalComment on above:Performed By: #### LACDS, TROPI, PRCAL, MYCM #### [facility] [address] [place] [address] 12804 Urea nitrogen mass conc14 mg/dLNormal6-20T[facility]carawas HospitalComment on above:Performed By: #### LACDS, TROPI, PRCAL, MYCM #### [facility] [employer] [address] [place] [address] 88912 BUN/CRE RatioNOT REPORTEDNormal9-20[facility] Comment on above:Performed By: #### LACDS, TROPI, PRCAL, MYCM #### [facility] [address] [place] [address] 25198 Staging:NOT REPORTEDNoGrand Lake Joint Township District Memorial HospitalComment on above:Performed By: #### LALO, TROPI, PRCAL, MYCM #### [address] [place] [address] 97077 Magnesiumon 76-41-5037Pwqnjlkzi mass conc2.3 mg/dLNormal1.6-2.6 [facility] HospitalComment on above:Performed By: #### LACREY, TROPI, PRCAL, MYCM #### [address] [place] [address] 15878 Vancomycin Troughon 77-38-0491Gierxpruvn Pwvxkz85.7 ug/mLNormal 10.0-20.0Tuscarawas HospitalComment on above:Result Comment: Higher trough serum vancomycin concentrations of 15-20 ug/mL are recommended for complicated infections such as bacteremia, endocarditis, osteomyelitis, meningitis, and hospital acquired pneumonia.Performed By: #### LALO, TROPI, PRCAL, MYCM #### [address] [place] [address] 48413 Date last dose,NOT REPORTEDNoGrand Lake Joint Township District Memorial Hospital Comment on above:Performed By: #### LALO, TROPI, PRCAL, MYCM #### [address] [place] [address] 85276 Dose amount,NOT REPORTEDNoGrand Lake Joint Township District Memorial Hospital Comment on above:Performed By: #### LACREY, TROPI, PRCAL, MYCM #### [address] [place] [address] 08806 Time last dose,NOT REPORTEDNoGrand Lake Joint Township District Memorial Hospital Comment on above:Performed By: #### LACREY, TROPI, PRCAL, MYCM #### [address] [place] [address] 30381 [phone]-Txcevgue Proteinon 23-07-7948SXA mass wcls518.1 mg/LHigh0.0-5.0 [facility]as HospitalComment on above:Performed By: #### LALO, DAMIENI, PRCAL, MYCM #### [place] [address] CBC with Diffon 57-30-8809Upp. Basophil0.00 k/uLNormal0.0-0.2MMount Zion campusComment on above:Performed By: #### LALO, TROPI, PRCAL, MYCM #### [facility] [employer] [address] [place] [address] 90776 Abs.Imm.Granulocyte0.13 k/uLNormal0.00-0.30T[facility]carawas HospitalComment on above:Performed By: #### LALO, TROPI, PRCAL, MYCM #### [place] [address] Abs.Neutrophil (Seg)4.35 k/uLNormal1.8-7.7Tuscarawas HospitalComment on above:Performed By: #### LALO, TROPI, PRCAL, MYCM #### [address] [address] Basophils/100 WBC (Bld)0 %Normal0-2MMount Zion campus Comment on above:Performed By: #### LALO, TROPI, PRCAL, MYCM #### [address] [address] Eosinophils #/vol (Bld)0.06 10*3/uLNormal0.0-0.4Tuscarawas HospitalComment on above:Performed By: #### LALO, TROPI, PRCAL, MYCM #### [facility] [employer] [address] [place] [address] 77743 Eosinophils/100 WBC (Bld)1 %Normal1-4T[facility]carawas HospitalComment on above:Performed By: #### LACDS, TROPI, PRCAL, MYCM #### [facility] [employer] [address] [place] [address] 89171 Immature granulocytes #/vol (Bld)2 %Mthw4CltubTuscarawas HospitalComment on above:Performed By: #### LACDS, TROPI, PRCAL, MYCM #### [facility] [employer] [address] [place] [address] 21248 Lymphocytes #/vol (Bld)1.32 10*3/uLNormal1.0-4.8T[facility]carawas HospitalComment on above:Performed By: #### LACDS, TROPI, PRCAL, MYCM #### [facility] [employer] [address] [place] [address] 63820 Lymphocytes/100 WBC (Bld)21 %Eiz35-58PujsiTuscarawas HospitalComment on above:Performed By: #### LACDS, TROPI, PRCAL, MYCM #### [facility] [employer] [address] [place] [address] 32088 Monocytes #/vol (Bld)0.44 10*3/uLNormal0.1-0.8Tuscarawas HospitalComment on above:Performed By: #### LACDS, TROPI, PRCAL, MYCM #### [facility] [address] [place] [address] 58002 Monocytes/100 WBC (Bld)7 %Normal1-7[facility] Comment on above:Performed By: #### LACDS, TROPI, PRCAL, MYCM #### [facility] [address] [place] [address] 53720 Morphology Interp Rehan (Bld)ANISOCYTOSIS PRESENTNormalTuscarawas HospitalComment on above:Result Comment: INCREASED BANDS PRESENT 1+ TEARDROPSPerformed By: #### LACDS, TROPI, PRCAL, MYCM #### [facility] [address] [place] [address] 82634 Neutrophil (Seg)69 %Ywrv61-27VhzerTuscarawas Hospital Comment on above:Performed By: #### LACDS, TROPI, PRCAL, MYCM #### [facility] [address] [place] [address] 98497 Erythrocyte distribution width Ratio (RBC)14.8 %High11.8-14.4T[facility]carawas HospitalComment on above:Performed By: #### LACDS, TROPI, PRCAL, MYCM #### [facility] [address] [place] [address] 32630 Hematocrit Volume Fraction (Bld)33.3 %Low36.3-47.1MMount Zion campusComment on above:Performed By: #### LACDS, TROPI, PRCAL, MYCM #### [facility] [address] [place] [address] 83921 Hemoglobin mass conc (Bld)10.2 g/dLLow11.9-15.1MMount Zion campusComment on above:Performed By: #### LACDS, TROPI, PRCAL, MYCM #### [facility] [address] [place] [address] 04722 MCH Entitic mass (RBC)28.3 kuEkmjqz07.2-33.5T[facility]awas HospitalComment on above:Performed By: #### LACDS, TROPI, PRCAL, MYCM #### [facility] [address] [place] [address] 63277 MCHC mass conc (RBC)30.6 g/mZAaqbtj08.4-34.8T[facility]carawas HospitalComment on above:Performed By: #### LACDS, TROPI, PRCAL, MYCM #### [facility] [address] [place] [address] 07921 MCV Entitic volume (RBC)92.2 bOUguuks99.6-102.9T[facility]awas HospitalComment on above:Performed By: #### LACDS, TROPI, PRCAL, MYCM #### [facility] [address] [place] [address] 84911 NRBC Automated0.0 per 100 WBCNormal0.0T[facility]carawas HospitalComment on above:Performed By: #### LACDS, TROPI, PRCAL, MYCM #### [facility] [address] [place] [address] Platelet mean volume Entitic volume (Bld)11.5 fLNormal8.1-13.5T[facility]carawas HospitalComment on above:Performed By: #### LACDS, TROPI, PRCAL, MYCM #### [facility] [address] [place] [address] Platelets #/vol (Bld)149 10*3/zLKglyuk654-373YlbjnTuscarawas HospitalComment on above:Performed By: #### LACDS, TROPI, PRCAL, MYCM #### [facility] [address] [place] [address] 06755 RBC #/vol (Bld)3.61 10*6/uLLow3.95-5.11T[facility]awas HospitalComment on above:Performed By: #### LACDS, TROPI, PRCAL, MYCM #### [facility] [address] [place] [address] 44661 WBC #/vol (Bld)6.3 10*3/uLNormal3.5-11.3MMount Zion campusComment on above:Performed By: #### LACDS, TROPI, PRCAL, MYCM #### [facility] [address] [place] [address] 89025 Auto Diff PerformedNOT REPORTEDBothwell Regional Health CenteralTuscarawas HospitalComment on above:Performed By: #### LACDS, TROPI, PRCAL, MYCM #### [address] [place] [address] 27062 Platelets #/vol (Bld)NOT REPORTEDNoGrand Lake Joint Township District Memorial HospitalComment on above:Performed By: #### LACDS, TROPI, PRCAL, MYCM #### [address] [place] [address] 16801 RBC morphology finding Nom (Bld)NOT REPORTEDNoGrand Lake Joint Township District Memorial HospitalComment on above:Performed By: #### LACDS, TROPI, PRCAL, MYCM #### [address] [place] [address] 90725 WBC MorphologyNOT REPORTEDNoGrand Lake [facility] Hospital Comment on above:Performed By: #### LACDS, TROPI, PRCAL, MYCM #### [address] [place] [address] 80161 Comp Metabolic Pr/rfx MGon 08-17-2018(cont.)Kettering HealthComment on above:Result Comment: Average GFR for 30-39 years old: 107 mL/min/1.73sq m Chronic Kidney Disease: <60 mL/min/1.73sq m Kidney failure: <15 mL/min/1.73sq m eGFR calculated using average adult body mass. Additional eGFR calculator available at: http://www.[employer].com/multiple_crcl_2012.htmPerformed By: #### LACDS, TROPI, PRCAL, MYCM #### [address] [place] [address] 45967 Albumin mass conc2.4 g/dLLow3.5-5.2[facility] Comment on above:Performed By: #### LACDS, TROPI, PRCAL, MYCM #### [address] [place] [address] 86479 Albumin/Globulin mass ratio0.7 {ratio}Low1.0-2.5T[facility]awas HospitalComment on above:Performed By: #### LACDS, TROPI, PRCAL, MYCM #### [facility] [address] [place] [address] 93110 Alkaline Phos76 U/LXlfevb24-136CsctyTuscarawas Hospital Comment on above:Performed By: #### LACDS, TROPI, PRCAL, MYCM #### [facility] [address] [place] [address] 38645 ALT enzyme act/vol25 U/LNormal5-33[facility] Comment on above:Performed By: #### LACDS, TROPI, PRCAL, MYCM #### [facility] [address] [place] [address] 11317 Anion gap molar conc8 mmol/LLow9-17[facility] Comment on above:Performed By: #### LACDS, TROPI, PRCAL, MYCM #### [facility] [address] [place] [address] 75507 AST enzyme act/vol26 U/LNormal<32[facility] Comment on above:Performed By: #### LACDS, TROPI, PRCAL, MYCM #### [facility] [address] [place] [address] 32375 Bilirubin Ql (U)0.34 mg/dLNormal0.3-1.2MMount Zion campusComment on above:Performed By: #### LACDS, TROPI, PRCAL, MYCM #### [facility] [address] [place] [address] 83502 Calcium mass conc7.8 mg/dLLow8.6-10.4[facility] HospitalComment on above:Performed By: #### LACDS, TROPI, PRCAL, MYCM #### [facility] [address] [place] [address] 16751 Chloride molar conc99 mmol/SIqesgp09-042YwgwnTuscarawas HospitalComment on above:Performed By: #### LACDS, TROPI, PRCAL, MYCM #### [facility] [address] [place] [address] 16739 CO2 molar conc23 mmol/FQuzoxw30-19FsagcTuscarawas Hospital Comment on above:Performed By: #### LACDS, TROPI, PRCAL, MYCM #### [facility] [address] [place] [address] 12565 Creatinine mass conc1.04 mg/dLHigh0.50-0.90[facility] HospitalComment on above:Performed By: #### LACDS, TROPI, PRCAL, MYCM #### [facility] [address] [place] [address] 50203 GFR, Amer>60Normal>60[facility] HospitalComment on above:Performed By: #### LACDS, TROPI, PRCAL, MYCM #### [facility] [address] [place] [address] 99139 GFR,non Amer59 mL/minLow>60[facility] Comment on above:Performed By: #### LACDS, TROPI, PRCAL, MYCM #### [facility] [address] [place] [address] 99224 Glucose mass jtyp570 mg/vZKetq83-78Cfziz [facility] Comment on above:Performed By: #### LACDS, TROPI, PRCAL, MYCM #### [facility] [address] [place] [address] 58573 Potassium molar conc3.8 mmol/LNormal3.7-5.3MMount Zion campusComment on above:Performed By: #### LACDS, TROPI, PRCAL, MYCM #### [facility] [address] [place] [address] 82919 Protein mass conc5.8 g/dLLow6.4-8.3[facility] Comment on above:Performed By: #### LACDS, TROPI, PRCAL, MYCM #### [facility] [address] [place] [address] 73556 Sodium molar coeh405 mmol/VGuv754-180EjvyjTuscarawas HospitalComment on above:Performed By: #### LACDS, TROPI, PRCAL, MYCM #### [facility] [address] [place] [address] 26034 Urea nitrogen mass conc15 mg/dLNormal6-20[facility] HospitalComment on above:Performed By: #### LACDS, TROPI, PRCAL, MYCM #### [facility] [address] [place] [address] 07739 BUN/CRE RatioNOT REPORTEDNormal9-20[facility] Comment on above:Performed By: #### LACDS, TROPI, PRCAL, MYCM #### [facility] [address] [place] [address] 72836 Staging:NOT REPORTEDNormalTuscarawas HospitalComment on above:Performed By: #### LACDS, TROPI, PRCAL, MYCM #### [address] [address] Magnesiumon 34-79-2467Pwxvvhamf mass conc2.2 mg/dLNormal1.6-2.6 [facility] HospitalComment on above:Performed By: #### LACDS, TROPI, PRCAL, MYCM #### [facility] [address] [place] [address] 63478 Procalcitoninon 37-03-6647Lzbbcxi mass conc1.48 ng/mLHigh<0.09[facility] HospitalComment on above:Result Comment: Suspected Sepsis: 0.09-0.49 [...] entered into the Change in Procalcitonin Calculator (www.zjbhgr-zdk-mymskhdska.tok tok tok) to determine the patient's Mortality Risk PrognosisPerformed By: #### GRACE MAY PRCAL, MYCM #### [address] [place] [address] Sedimentation Rateon 52-28-4057Leucoxojsdnlh Rate97 mmHigh0-20[facility] HospitalComment on above:Performed By: #### GRACE MAY PRCAL, MYCM #### [address] [place] [address] CBC with Diffon 85-39-6630Dsz. Basophil0.00 k/uLNormal0.00-0.20 [facility] HospitalComment on above:Performed By: #### GRACE MAY PRCAL, JAZMYN #### [address] [place] [address] Abs.Imm.Granulocyte0.11 k/uLNormal0.00-0.30[facility] HospitalComment on above:Performed By: #### GRACE MAY PRCAL, MYCM #### [address] [place] [address] Abs.Neutrophil (Seg)4.60 k/uLNormal1.50-8.10[facility] HospitalComment on above:Performed By: #### GRACE MAY PRCAL, MYCM #### [facility] [address] [place] [address] 20678 Basophils/100 WBC (Bld)0 %Normal0-2MMount Zion campus Comment on above:Performed By: #### LACDS, TROPI, PRCAL, MYCM #### [address] [address] Eosinophils #/vol (Bld)0.00 10*3/uLNormal0.00-0.44[facility] HospitalComment on above:Performed By: #### LACDS, TROPI, PRCAL, MYCM #### [facility] [address] [place] [address] 89395 Eosinophils/100 WBC (Bld)0 %Low1-4[facility] Comment on above:Performed By: #### LACDS, TROPI, PRCAL, MYCM #### [facility] [address] [place] [address] 54592 Immature granulocytes #/vol (Bld)2 %Vsfz7OotrlTuscarawas HospitalComment on above:Performed By: #### LACDS, TROPI, PRCAL, MYCM #### [facility] [address] [place] [address] 96436 Lymphocytes #/vol (Bld)0.67 10*3/uLLow1.10-3.70[facility] HospitalComment on above:Performed By: #### LACDS, TROPI, PRCAL, MYCM #### [facility] [address] [place] [address] 75858 Lymphocytes/100 WBC (Bld)12 %Jtv87-50JdpxzTuscarawas HospitalComment on above:Performed By: #### LACDS, TROPI, PRCAL, MYCM #### [facility] [address] [place] [address] 66478 Monocytes #/vol (Bld)0.22 10*3/uLNormal0.10-1.20[facility] HospitalComment on above:Performed By: #### LACREY, TROPI, PRCAL, MYCM #### [address] [place] [address] 17603 Monocytes/100 WBC (Bld)4 %Normal3-12[facility] HospitalComment on above:Performed By: #### LACDS, TROPI, PRCAL, MYCM #### [address] [place] [address] 30671 Morphology Interp Rehan (Bld)ANISOCYTOSIS PRESENTNormalTuscarawas HospitalComment on above:Result Comment: INCREASED BANDS PRESENT 1+ TEARDROPSPerformed By: #### LACREY, TROPI, PRCAL, MYCM #### [address] [place] [address] 89969 Neutrophil (Seg)82 %Uwdj74-54GjfvzTuscarawas Hospital Comment on above:Performed By: #### LACREY, TROPI, PRCAL, MYCM #### [address] [place] [address] 21956 Erythrocyte distribution width Ratio (RBC)15.1 %High11.8-14.4[facility] HospitalComment on above:Performed By: #### LACDS, TROPI, PRCAL, MYCM #### [address] [place] [address] 96165 Hematocrit Volume Fraction (Bld)34.1 %Low36.3-47.1MMount Zion campusComment on above:Performed By: #### LACDS, TROPI, PRCAL, MYCM #### [address] [place] [address] 05923 Hemoglobin mass conc (Bld)10.0 g/dLLow11.9-15.1MercHCA Florida Trinity HospitalPearlington Medical CenterComment on above:Performed By: #### LACDS, TROPI, PRCAL, MYCM #### [facility] [address] [place] [address] MCH Entitic mass (RBC)28.7 ceMgzhss19.2-33.5[facility] HospitalComment on above:Performed By: #### LACDS, TROPI, PRCAL, MYCM #### [facility] [address] [place] [address] MCHC mass conc (RBC)29.3 g/gCWzfzie30.4-34.8[facility] HospitalComment on above:Performed By: #### LACDS, TROPI, PRCAL, MYCM #### [facility] [address] [place] [address] MCV Entitic volume (RBC)98.0 aBMdmjpv64.6-102.9[facility] HospitalComment on above:Performed By: #### LACDS, TROPI, PRCAL, MYCM #### [place] [address] NRBC Automated0.0 per 100 WBCNormal0.0[facility] HospitalComment on above:Performed By: #### LACDS, TROPI, PRCAL, MYCM #### [place] [address] Platelet mean volume Entitic volume (Bld)11.1 fLNormal8.1-13.5[facility] HospitalComment on above:Performed By: #### LACDS, TROPI, PRCAL, MYCM #### [place] [address] Platelets #/vol (Bld)119 10*3/hGExp169-187FyqleTuscarawas HospitalComment on above:Performed By: #### LACDS, TROPI, PRCAL, MYCM #### [address] [place] [address] 73240 RBC #/vol (Bld)3.48 10*6/uLLow3.95-5.11[facility] CenterComment on above:Performed By: #### LACDS, TROPI, PRCAL, MYCM #### [address] [place] [address] 08785 WBC #/vol (Bld)5.6 10*3/uLNormal3.5-11.3[facility] CenterComment on above:Performed By: #### LACDS, TROPI, PRCAL, MYCM #### [address] [place] [address] 68828 Auto Diff PerformedNOT REPORTEDKettering HealthComment on above:Performed By: #### LACDS, TROPI, PRCAL, MYCM #### [address] [place] [address] 86951 Platelets #/vol (Bld)NOT REPORTEDKettering HealthComment on above:Performed By: #### LACDS, TROPI, PRCAL, MYCM #### [address] [place] [address] 69592 RBC morphology finding Nom (Bld)NOT REPORTEDKettering HealthComment on above:Performed By: #### LACDS, TROPI, PRCAL, MYCM #### [address] [place] [address] 79808 WBC MorphologyNOT REPORTEDKettering Health Comment on above:Performed By: #### LACDS, TROPI, PRCAL, MYCM #### [address] [place] [address] HEAD WO CONTRASTon 67-76-7117LO HEAD WO CONTRASTEXAMINATION: CT OF THE HEAD [...] Signed by: Erica Angeles MD 08/16/18 Final resultNormalTuscarawas HospitalCalcium, Ionicon 08-16-2018 Calcium mass conc0.99 mmol/LLow1.13-1.33[facility] HospitalComment on above:Performed By: #### LACDS, TROPI, PRCAL, MYCM #### [address] [place] [address] 43608 Comp Metabolic Pr/rfx MGon 08-16-2018(cont.)NormalTuscarawas HospitalComment on above:Result Comment: Average GFR for 30-39 years old: 107 mL/min/1.73sq m Chronic Kidney Disease: <60 mL/min/1.73sq m Kidney failure: <15 mL/min/1.73sq m eGFR calculated using average adult body mass. Additional eGFR calculator available at: http://www.[employer].com/multiple_crcl_2012.htmPerformed By: #### PT, CMPX, MG, CDP #### [facility] [facility] [place] [address] Albumin mass conc2.3 g/dLLow3.5-5.2[facility] Comment on above:Performed By: #### PT, CMPX, MG, CDP #### [facility] [address] [place] [address] 00627 Albumin/Globulin mass ratio0.7 {ratio}Low1.0-2.5[facility] HospitalComment on above:Performed By: #### PT, CMPX, MG, CDP #### [facility] [address] [place] [address] 91667 Alkaline Phos67 U/SZkizkb38-897ZyvzeTuscarawas Hospital Comment on above:Performed By: #### PT, CMPX, MG, CDP #### [facility] [address] [place] [address] 42200 ALT enzyme act/vol33 U/LNormal5-33[facility] Comment on above:Performed By: #### PT, CMPX, MG, CDP #### [facility] [address] [place] [address] Anion gap molar conc11 mmol/LNormal9-17[facility] HospitalComment on above:Performed By: #### PT, CMPX, MG, CDP #### [facility] [address] [place] [address] 19891 AST enzyme act/vol41 U/LHigh<32[facility] Comment on above:Performed By: #### PT, CMPX, MG, CDP #### [facility] [address] [place] [address] Bilirubin Ql (U)0.40 mg/dLNormal0.3-1.2MMount Zion campusComment on above:Performed By: #### PT, CMPX, MG, CDP #### [facility] [address] [place] [address] 89377 Calcium mass conc7.3 mg/dLLow8.6-10.4[facility] HospitalComment on above:Performed By: #### PT, CMPX, MG, CDP #### [facility] [address] [place] [address] 76556 Chloride molar oiav363 mmol/MFdterq99-621VuniuTuscarawas HospitalComment on above:Performed By: #### PT, CMPX, MG, CDP #### [facility] [address] [place] [address] 83954 CO2 molar conc18 mmol/ZXee94-33RhsbdTuscarawas Hospital Comment on above:Performed By: #### PT, CMPX, MG, CDP #### [facility] [address] [place] [address] 31776 Creatinine mass conc1.09 mg/dLHigh0.50-0.90[facility] HospitalComment on above:Performed By: #### PT, CMPX, MG, CDP #### [facility] [address] [place] [address] GFR, Amer>60Normal>60[facility] HospitalComment on above:Performed By: #### PT, CMPX, MG, CDP #### [facility] [address] [place] [address] 76548 GFR,non Amer56 mL/minLow>60[facility] Comment on above:Performed By: #### PT, CMPX, MG, CDP #### [facility] [address] [place] [address] 50085 Glucose mass rstj118 mg/uLVuro20-71SxyydMount Zion campus Comment on above:Performed By: #### PT, CMPX, MG, CDP #### [facility] [address] [place] [address] 92572 Potassium molar conc3.6 mmol/LLow3.7-5.3MMount Zion campusComment on above:Performed By: #### PT, CMPX, MG, CDP #### [facility] [address] [place] [address] 47796 Protein mass conc5.5 g/dLLow6.4-8.3MMount Zion campus Comment on above:Performed By: #### PT, CMPX, MG, CDP #### [facility] [address] [place] [address] 79580 Sodium molar zikt415 mmol/DMts241-792EsrkbTuscarawas HospitalComment on above:Performed By: #### PT, CMPX, MG, CDP #### [facility] [address] [place] [address] 19354 Urea nitrogen mass conc17 mg/dLNormal6-20[facility] HospitalComment on above:Performed By: #### PT, CMPX, MG, CDP #### [facility] [address] [place] [address] 19308 BUN/CRE RatioNOT REPORTEDNoal9-20[facility] Comment on above:Performed By: #### PT, CMPX, MG, CDP #### [facility] [address] [place] [address] 09993 Staging:NOT REPORTEDNormalTuscarawas HospitalComment on above:Performed By: #### PT, CMPX, MG, CDP #### [facility] [address] [place] [address] 49634 Lactic Acid,Whole Blon 29-58-7149Eczgvj Acid,Whole Bl1.2 mmol/L Normal0.7-2.1MMount Zion campusComment on above:Performed By: #### LACDS, TROPI, PRCAL, MYCM #### [facility] [address] [place] [address] 08847 Lactic Acid,Whole Bl1.2 mmol/LNormal0.7-2.1[facility] Medical CenterComment on above:Performed By: #### LACWB #### [address] [address] Magnesiumon 76-26-9974Hbofmzwcb mass conc2.0 mg/dLNormal1.6-2.6 [facility] HospitalComment on above:Performed By: #### LACDS, TROPI, PRCAL, MYCM #### [address] [address] Mycoplasma Ab,IgMon 74-20-1549Zpprnenrkd Ab,IgM0.22Normal<0.91T[facility]awas HospitalComment on above:Result Comment: Reference Range: <=0.90 Negative 0.91-1.09 Equivocal >=1.10 PositivePerformed By: #### LACDS, TROPI, PRCAL, MYCM #### [address] [address] PTon 52-98-7590EKQ Coag RelTime (PPP)1.0 {INR}NormalTuscarawas HospitalComment on above:Result Comment: Therapeutic Range: Moderate Anticoagulant Intensity: INR = 2.0-3.0 High Anticoagulant Intensity: INR = 2.5-3.5Performed By: #### PT, CMPX, MG, CDP #### [address] [address] Prothrombin time (PT) Coag time (PPP)11.0 sNormal9.0-12.0T[facility]carawas HospitalComment on above:Performed By: #### PT, CMPX, MG, CDP #### [address] [address] Troponinon 12-94-5620Pypwxpeb I.cardiac mass concNormalTuscarawas HospitalComment on above:Result Comment: Reference Range: <0.03 [...] information for diagnosis.Performed By: #### TROPI #### [address] [address] Troponin I.cardiac mass concng/mLNormal<0.03T[facility]awas HospitalComment on above:Result Comment: Troponin T results cannot be compared to Troponin-I results.Performed By: #### TROPI #### [address] [address] XR CHEST (2 VW)on 78-60-8841VN CHEST (2 VW)EXAMINATION: TWO VIEWS OF THE [...] Signed by: Noe Mitchell MD 08/16/18 Final resultNormalMerLos Angeles County Los Amigos Medical CenterLactate, Sepsison 08-15-2018 Lactic Acid,Sep Wbld3.5 mmol/LHigh0.5-1.9[facility] HospitalComment on above:Performed By: #### LACDS, TROPI, PRCAL, MYCM #### [address] [address] Lactic Acid, SepsisNOT REPORTEDNormal0.5-1.9T[facility]awas HospitalComment on above:Performed By: #### LACDS, TROPI, PRCAL, MYCM #### [address] [address] Legionella Ag, Uron 68-25-7621Grelygykqc Ag, UrSpecimen Description .CLEAN CATCH URINE Special [...] levels of this test. Report Status FINAL 08/15/2018NoGrand Lake Joint Township District Memorial HospitalComment on above:Performed By: #### ULAG #### [address] [place] [address] 79332 Procalcitoninon 14-90-7824Wykbcor mass conc3.39 ng/mLHigh<0.09T[facility]carawas HospitalComment on above:Result Comment: Suspected Sepsis: 0.09-0.49 [...] entered into the Change in Procalcitonin Calculator (www.jdkgdb-fug-mbhoxfvayi.tok tok tok) to determine the patient's Mortality Risk PrognosisPerformed By: #### LACDS, TROPI, PRCAL, MYCM #### [address] [facility] [place], [place] [id number] Strep pneum Ag,CSF/Uron 68-31-9719Dottk pneum Ag,CSF/UrSpecimen Description .CLEAN CATCH URINE Special Requests NOT REPORTED Direct Exam NEGATIVE: Strep pneumoniae antigen not detected Report Status FINAL 08/15/2018Kettering HealthComment on above:Performed By: #### SPAG #### [address] [place] [address] [id number] Troponinon 11-29-7284Omhutpvg I.cardiac mass concng/mLNormal<0.03 [facility] HospitalComment on above:Result Comment: Troponin T results cannot be compared to Troponin-I results.Performed By: #### LACDS, TROPI, PRCAL, MYCM #### [address] [place], [place] [address] Troponin I.cardiac mass concNormalMercy [facility] Comment on above:Result Comment: Reference [...] By: #### LACDS, TROPI, PRCAL, MYCM #### [address] [place], [place] [address] Urinalysison 81-72-4329Nzpvzpvfr, UrineNegativeInvalid Interpretation CodeNEG;NEGATIVEAVITA HEALTH SYSTEM BUCYRUS HOSPITALBlood, UrineModerate AbnormalNEG;NEGATIVEAVITA HEALTH SYSTEM BUCYRUS HOSPITALInterpretation and review of laboratory resultsAbnormalInvalid Interpretation CodeAVITA HEALTH SYSTEM BUCYRUS HOSPITALNitrite, UrineNegativeInvalid Interpretation CodeNEG;NEGATIVEAVITA HEALTH SYSTEM BUCYRUS HOSPITALProtein, UrineNegativeInvalid Interpretation CodeNEG;NEGATIVE mg/dLAVITA HEALTH SYSTEM BUCYRUS HOSPITALRBCs, Urine1 /HPFInvalid Interpretation Code0 - 5T[facility]EDO HOSPITALquamous Epithelial< 1Invalid Interpretation Code0 - 40 /HPFWhite Hospital, bacteria in sedimentRare Invalid Interpretation CodeNS;RARE /HPFAVITA HEALTH SYSTEM BUCYRUS HOSPITALUrine, characterHazyInvalid Interpretation CodeWhite Hospital, colorYellowInvalid Interpretation CodeWhite Hospital, glucose presenceNegativeInvalid Interpretation CodeNEG;NEGATIVE mg/dLWhite Hospital, ketones presenceNegativeInvalid Interpretation Code NEG;NEGATIVE mg/dLAVITA [facility] BUCYRUS HOSPITALUrine, leukocyte esterase presenceSmallAbnormalNegativeAVITA HEALTH SYSTEM BUCYRUS HOSPITALUrine, pH6.0 [pH] Invalid Interpretation Code4.5 - 8.0AV[facility]YRUS HOSPITALUrine, specific gravity1.014 1Invalid Interpretation Code1.003 - 1.029AV[facility]UCYRUS HOSPITALUrobilinogen, Urine< 2.0Invalid Interpretation Code<2 mg/dLAVITA HEALTH SYSTEM BUCYRUS HOSPITALWBCs, Urine6 /HPFHigh0 - 5AV[facility] HOSPITALCBC and Differentialon 90-24-1044Snshkejho7.7 %Invalid Interpretation CodeAVITA HEALTH SYSTEM BUCYRUS HOSPITALBasophils0.1 K/mcLInvalid Interpretation Code0 - 0.2[facility]UCYRUS HOSPITALEosinophils0.2 K/mcLInvalid Interpretation Code0 - 0.5 [facility]UCYR[facility] HOSPITALErythrocytes (RBC)3.97 M/mcLInvalid Interpretation Code3.7 - 5.0AV[facility]YRUS HOSPITALHematocrit (HCT)35.7 %Invalid Interpretation Code34.4 - 44.8 %[facility] HOSPITALHemoglobin (HGB) 12.2 g/dLInvalid Interpretation Code11.6 - 15.4 g/dLAVITA [facility] BUCYRUS HOSPITALInterpretation and review of laboratory resultsAbnormalInvalid Interpretation CodeAVITA HEALTH SYSTEM BUCYRUS HOSPITALLymphocytes2.1 K/mcLInvalid Interpretation Code1.0 - 3.7[facility] NORTHH30.6 pgInvalid Interpretation Code27.9 - 33.9 pgAVITA HEALTH SYSTEM BUCYRUS HOSPITALMCHC34.0 g/dL Invalid Interpretation Code33.1 - 35.1 g/dLAVITA [facility] BUCYRUS HOSPITALMCV89.8 fLInvalid Interpretation Code82.6 - 98.9[facility] HOSPITALMonocytes 0.6 K/mcLInvalid Interpretation Code0.1 - 0.6[facility] Neutrophils6.6 K/mcLInvalid Interpretation Code1.2 - 6.9[facility] HOSPITALPlatelet mean volume (PMV)8.6 fLInvalid Interpretation Code7.0 - 10.6 [facility] HOSPITALPlatelets196 K/mcLInvalid Interpretation Qsrs258 - 402OHST. FRANCIS HOSPITALRDW-CA15.0 %High10 - 14.4 %[facility]OSPITALegmented Neut69.6 %Invalid Interpretation CodeYOLANDA VILLE [address] suppressor/100 cells1.8 10*3/uLInvalid Interpretation CodeYOLANDA VILLE [address] suppressor/100 cells21.8 10*3/uLInvalid Interpretation Code [place] [address] suppressor/100 cells6.1 10*3/uLInvalid Interpretation CodeAVITA HEALTH SYSTEM BUCYRUS HOSPITALWBC (Leukocytes)9.5 K/mcLInvalid Interpretation Code3.4 - 10.6AV[facility] HOSPITALComprehensive Metabolic Panelon 02-29-4678Cfwlaug aminotransferase (ALT)18 U/LInvalid Interpretation Code14 - 65 U/[facility] CENTERAlbumin3.1 g/dLLow3.2 - 5.2 g/dLAVITA HEALTH SYSTEM BUCYRUS HOSPITALAlkaline phosphatase (ALP)78 U/LInvalid Interpretation Code40 - 140 U/[facility] CENTERAspartate aminotransferase (AST)7 U/LInvalid Interpretation Code0 - 45 U/[facility] CENTERCalcium8.6 mg/dLInvalid Interpretation Code8.4 - 10.2 mg/dL [facility] HOSPITALChloride106 mmol/LInvalid Interpretation Code98 - 108 mmol/[facility] CENTERCO227 mmol/LInvalid Interpretation Code21 - 32 mmol/[facility] CENTERCreatinine1.13 mg/dLHigh0.4 - 1.1 mg/dL [facility] HOSPITALeGFR (black)mL/min/{1.73_m2}Invalid Interpretation Codeml/min/1.73sq.[facility] CentereGFR (non-black)54 mL/min/{1.73_m2}Low>60[facility] HOSPITALGlucose113 mg/pSRdnr55 - 99 mg/dLAVITA [facility] BUCYRUS HOSPITALInterpretation and review of laboratory resultsAbnormalInvalid Interpretation CodeAVITA HEALTH SYSTEM BUCYRUS HOSPITALPotassium 3.7 mmol/LInvalid Interpretation Code3.5 - 5.1 mmol/[facility]ENTERProtein6.8 g/dLInvalid Interpretation Code6 - 8 g/dLTOLEDO HOSPITALodium140 mmol/LInvalid Interpretation Gcin872 - 145 mmol/[facility] CENTERUrea fjqfzpum28 mg/dLInvalid Interpretation Code8 - 25 mg/dL [facility] HOSPITALUrine, bilirubin presence0.4 mg/dLInvalid Interpretation Code0.3 - 1.2 mg/dLAVITA HEALTH SYSTEM BUCYRUS HOSPITALLipaseon 28-70-7292Szmfvg014 U/LInvalid Interpretation Code73 - 393 U/[facility] Vital Signs Date TimeVital SignValuePerforming DavoexqbbIkolwzjw11-12-0439 11:47-0400Body huwsmq955.5 cmJennie Van BOOKKEEPING CLERK-CHAMFERING MACHINE OPERATOR Work Phone: [place] [phone] 11:47-0400Body mass index (BMI) [Ratio]38.41 kg/o7EyobcxeJennie Van BOOKKEEPING CLERK-CHAMFERING MACHINE OPERATOR Work Phone: [place] [phone] 11:47-0400Body .25 kgJecarlos Van BOOKKEEPING CLERK-CHAMFERING MACHINE OPERATOR Work Phone: [place] [phone] 11:47-0400Diastolic blood gpavjlhw91 mm[Hg]Jennie Van BOOKKEEPING CLERK-CHAMFERING MACHINE OPERATOR Work Phone: [place] [phone] 11:47-0400Respiratory rate18 /minJesssandeep Van BOOKKEEPING CLERK-CHAMFERING MACHINE OPERATOR Work Phone: [place] [phone] 11:47-8242AaD6% (BldA) [Mass fraction]98 %Jennie Van BOOKKEEPING CLERK-CHAMFERING MACHINE OPERATOR Work Phone: [place] [phone] 11:47-0400Systolic blood wjfgnypo072 mm[Hg]Jennie Van BOOKKEEPING CLERK-CHAMFERING MACHINE OPERATOR Work Phone: [facility] HospitalKsrwcbavho94-63-1942 12:32-0400Body hztdxa684.5 Bihristophmichael Sánchez DPM Work Phone: [facility] HospitalPqxudpfeml87-83-1865 12:32-0400Body mass index (BMI) [Ratio]38.41 kg/t1Zxotyicqchh Bohach DPM Work Phone: [facility] HospitalGdifidxtmx24-90-9907 12:32-0400Body warhon15.25 kgChristopher Bohach DPM Work Phone: [facility] HospitalZbcojkhlvz82-76-1262 12:32-0400Diastolic blood qvxqsihc74 mm[Hg]Christopher Bohach DPM Work Phone: [facility] HospitalTbuigjvepq42-60-1963 12:32-0400Heart mzuk264 /min Christopher Bohach DPM Work Phone: [facility] HospitalAbphfqmskb25-36-8649 12:32-0400Systolic blood wikjhnvd990 mm[Hg]Christopher Bohach DPM Work Phone: [facility] HospitalNpztmyclyu09-29-2026 16:21-0400Body glycuo650.5 cmChristopher Bohach DPM Work Phone: [facility] HospitalEdcmhvrqcq26-73-2166 16:21-0400Body mass index (BMI) [Ratio]38.41 kg/x5Onqplnxhfmp Bohach DPM Work Phone: [facility] HospitalCuuuvmcnav83-94-4892 16:21-0400Body etfgmi51.25 kgChristopher Bohach DPM Work Phone: [facility] HospitalGaeaiiwrpo72-79-3364 16:21-0400Diastolic blood daejqvgk87 mm[Hg]Christopher Bohach DPM Work Phone: [facility] HospitalWhfaoqkixm49-30-4455 16:21-0400Heart rate89 /min Christopher Bohach DPM Work Phone: [facility] HospitalYbelakkznx63-37-4792 16:21-0400Systolic blood ooawybou959 mm[Hg]Christopher Bohach DPM Work Phone: [facility] HospitalMkdnpnljww07-75-5579 23:15-0400Diastolic blood njnmridr11 mm[Hg]Severo Case MD Work Phone: [phone] [facility] CenterMaryland [employer] and [employer] [facility] HospitalSmqadj15-39-4042 23:15-0400Heart rate74 /minSevero Case MD Work Phone: [phone] [facility] CenterMaryland [employer] and [employer] [facility] HospitalAxlblk14-04-3372 23:15-0400 Respiratory rate16 /minSevero Case MD Work Phone: [phone] [facility]07-01-2025 23:15-6314AkT9% (BldA) [Mass fraction]97 %Severo Case MD Work Phone: [phone] [facility]07-01-2025 23:15-0400Systolic blood jmkvawiu850 mm[Hg]Severo Case MD Work Phone: [phone] [facility]07-01-2025 21:24-0400Body xwxwnu220.4 cmSevero Case MD Work Phone: [phone] [facility]07-01-2025 21:24-0400Body mass index (BMI) [Ratio]41.99 kg/s6FpheigSevero Case MD Work Phone: [phone] [facility] CenterMaryland [employer] [facility] HospitalWrqhtw09-27-7635 21:24-0400Body .52 kgSevero Case MD Work Phone: [phone] [facility]07-01-2025 21:15-0400Body vayxxxxtvoq46 [degF]Severo Case MD Work Phone: [phone] [facility]06-10-2025 12:02-0400Body skyvju611.5 cmLynn Block MD Work Phone: [facility] HospitalTlnezgeznt10-40-2499 12:02-0400Body mass index (BMI) [Ratio]38.41 kg/m2Lynn Block MD Work Phone: [facility] HospitalFrjepnulav21-76-8500 12:02-0400Body xfmace47.25 kgLynn Block MD Work Phone: [phone] [place], [place] [address]Ylefrxepes69-78-7916 13:00-0500Body .5 cmLynn Block MD Work Phone: [facility] HospitalTeeobmikrp15-44-4183 13:00-0500Body mass index (BMI) [Ratio]38.41 kg/m2Lynn Block MD Work Phone: [facility] HospitalBameubdklx11-63-7558 13:00-0500Body ewhhit45.25 kgLynn Block MD Work Phone: [phone] [place], [place] [address]Efilynymqd23-14-7230 11:31-0500Body uznbbi735.5 cmFealli Yusra MANAGER MAC Work Phone: [phone] [place], [place] [address]Fdiqtsejvh30-75-9681 11:31-0500Body mass index (BMI) [Ratio]37.9 kg/v8Tebtuzt Megannagel MANAGER MAC Work Phone: [phone] [place], [place] [address]Mlcwwouswt97-83-6529 11:31-0500Body teqdvy29.98 kgFemadelynia Megannagel MANAGER MAC Work Phone: [phone] [place], [place] [address]Tkuolpzgqa49-35-1218 11:31-0500Diastolic blood yiaraptx65 mm[Hg]Fozia Megannagel MANAGER MAC Work Phone: [phone] [place], [place] [address]Siktgjmcnr20-69-1888 11:31-0500Systolic blood apqwvhuq428 mm[Hg]Fozia Megannagel MANAGER MAC Work Phone: [phone] [place], [place] [address]Eyvyqazlpy61-79-8270 09:42-0500Body cgomgf783.5 Jimmy Adair MD Work Phone: [phone]zvmvt83-86-6369 09:42-0500Body mass index (BMI) [Ratio]38.23 kg/m2Dimas Adair MD Work Phone: [phone]arsdq71-06-9282 09:42-0500Body fxurhtdetox10.29 [degF]Dimas Adair MD Work Phone: [phone]ncijt25-11-6084 09:42-0500Body kxfuie57.8 kgDimas Adair MD Work Phone: [phone]plhaz01-82-4267 11:30-0500Body waipif914.5 cm Fozia Meng MANAGER MAC Work Phone: [facility] HospitalEpaazxqtsh53-36-4673 11:30-0500Body mass index (BMI) [Ratio]39.91 kg/p9CptcuqhFozia Meng MANAGER MAC Work Phone: [facility] HospitalTimfddkojg21-92-8467 11:30-0500Body nzfyct97.97 kgFozia Meng MANAGER MAC Work Phone: [facility] HospitalGmjxecjuaw86-82-6784 11:30-0500Diastolic blood ubmujjbj90 mm[Hg]Fozia Meng MANAGER MAC Work Phone: [facility] HospitalFuxipcybfr07-67-5034 11:30-0500Systolic blood bceudbka172 mm[Hg]Fozia Meng MANAGER MAC Work Phone: [facility] HospitalShmenmncnt13-07-5834 10:09-0400Body dcoidm911.5 cmTrace Casas MD Work Phone: [facility] HospitalKbydpzinxp62-70-1882 10:09-0400Body mass index (BMI) [Ratio]38.96 kg/n0QjtaqzmTrace Casas MD Work Phone: [facility] HospitalNiueudzbnq54-07-9951 10:09-0400Body qsiahx52.62 kgTrace Casas MD Work Phone: [facility] HospitalYbvlzrlpyb30-54-5289 10:09-0400Diastolic blood uutimjgh26 mm[Hg]Trace Casas MD Work Phone: [facility] HospitalLrzhzmhmga26-11-4445 10:09-0400Systolic blood emzhvltz910 mm[Hg]Trace Casas MD Work Phone: [facility] HospitalSlsyolqiav24-14-4020 14:20-0400Body uynyhz770.5 cmNicole Ginger DO Work Phone: [facility] SpringsKhfyuaafef47-23-1789 14:20-0400Body mass index (BMI) [Ratio]38.41 kg/a8Rawchu Ginger DO Work Phone: [facility]OSaint [facility] SpringsSipudfgmds37-08-1955 14:20-0400Body yruiug41.25 kgNicole Ginger DO Work Phone: [facility]OS[facility] SpringsQkqixtinfr26-62-8575 14:20-0400Diastolic blood runegsvu98 mm[Hg]Cheryl Ginger DO Work Phone: [facility]OS[facility] SpringsAjodjtjrsy72-65-9250 14:20-0400Heart rate83 /min Cheryl Ginger DO Work Phone: NOSaint [facility] SpringsUtlotulmwr81-65-6108 14:20-7373KwJ8% (BldA) [Mass fraction]97 %Cheryl Ginger DO Work Phone: noSaint [facility] of Blue SpringsTihlcdmjjw09-49-3641 14:20-0400Systolic blood mefubdov137 mm[Hg]Cheryl Ginger DO Work Phone: [facility] HospitalHkjtqahvfb23-19-1361 14:44-0400Body temperature 98.49 [degF]MASSIMO Shook DPM Work Phone: [phone]unkun03-61-3219 14:44-0400Diastolic blood mm[Hg]MASSIMO Shook DPM Work Phone: [phone]yjlmc16-58-6434 14:44-0400Heart rate94 /minMASSIMO Shook DPM Work Phone: [phone]hoqsb35-21-8321 14:44-0400Systolic blood pressure 139 mm[Hg]MASSIMO Shook DPM Work Phone: [phone]cvdlq44-81-7259 09:36-0400Body .5 cmMwhz Education Work Phone: bon MessageMe09-28-2022 09:36-0400Body mass index (BMI) [Ratio]38.67 kg/m2Mwhz Education Work Phone: bon MessageMe09-28-2022 09:36-0400Body iuekxl05.89 kgMwhz Education Work Phone: bon SECSUM[facility]12-13-2020 20:53-0500BMI (Body Mass Index)39.32 kg/e0[place]flbkrizxqkRead[place]12-[place]-2020 20:53-0500Body Awwmtxmeznb81.5 [degF][place] 09-16-2020 20:53-0500Body yfkgsa23.52 kg[place] 09-16-2020 20:53-0500BP Pctbimavv947 mm[Hg][place] 09-16-2020 20:53-0500BP Pensphnv389 mm[Hg][place] 09-16-2020 20:53-7274Cusqkt591.5 [place], [place] 09-16-2020 20:53-0500Pulse (Heart Rate)99 /min[place]12[place]-2020 20:53-0500Pulse Lctqwzjg80 %[place] 09-16-2020 20:53-0500Respiratory Rate18 /minRedington-[facility] Encounters Encounter DateEncounter TypeCare ProviderFacilityStart: 08-02-2025 End: 40-32-1504pydumhbecwYMITVMemorial Health Systemtart: 08-02-2025 End: 09-51-4962Wbahxndyam hospital visit by physicianPeconic Bay Medical Centeruzair Laboratory Schedule [facility] LaboratoryComment on above:Stage 3a chronic kidney disease (HCC); Pre-diabetesStart: 07-29-2025 End: 93-76-4102QbzrowHueopttezeSaar Allen NP Work Phone: NO[facility] [place] NeurologyComment on above:Idiopathic progressive polyneuropathy; Non-seasonal allergic rhinitis due to pollenStart: 07-21-2025 End: 85-88-6795rohrzjbgvsDFNTBUMNPiedmont Medical Center [facility] EDtart: 07-21-2025 End: 92-01-5443Gzyzcvpdmh hospital [facility] by [facility] Laboratory Schedule [facility] LaboratoryComment on above:ArrivedStart: 06-12-2025 End: 33-13-7929gofvndgdbqTEFNJPOZJW MILLERMercy Willard HospitalStart: 06-12-2025 End: 70-29-4560Htfdfnkcfy hospital visit by physicianKendall Laboratory Schedule [facility] LaboratoryComment on above:ArrivedStart: 05-24-2025 End: 24-68-6043Tqplwm DescomplicaheetVoölks SA BOOKKEEPING CLERK-CHAMFERING MACHINE OPERATOR Work Phone: noms NEUROLOGYStart: 05-24-2025 End: 65-49-1670Jfwemt DescomplicaheetVoölks SA BOOKKEEPING CLERK-CHAMFERING MACHINE OPERATOR Work Phone: noms NEUROLOGYStart: 05-24-2025 End: 36-18-2699zvogrrkbjhZDMJUOY SPRINGERNortheast Regional Medical Center AvailableStart: 05-24-2025 End: 13-27-3064Gpfwnf outpatient visit 25 minutesJeTraffic Labs BOOKKEEPING CLERKStrix Systems Work Phone: noms Brenda NeurologyComment on above:BUCK (obstructive sleep apnea) (Primary Dx); Cervical paraspinal muscle spasm; Cervical radiculopathyStart: 05-23-2025 End: 78-24-6218Yovtaurgj encounterMark Trista Block MD Work Phone: noms [facility] 111Start: 05-15-2025 End: 81-91-0102pverfmgzdrGINKH D [facility] Centertart: 05-15-2025 End: 88-04-7008Zkrzkvxelf hospital visit by physicianKendall Laboratory Schedule [facility] LaboratoryComment on above:ArrivedStart: 04-20-2025 End: 60-94-7901Labnnr flowsTeresa Sánchez DPM Work Phone: noms WWW PODIATRYStart: 04-20-2025 End: 53-78-3126Rxuczrame Sánchez DPM Work Phone: noms WWW PODIATRYStart: 04-20-2025 End: 65-73-7811Xzgsyc outpatient visit 25 minutesRobbin Sánchez DPM Work Phone: noms [facility] PODIATRYComment on above:MRSA (methicillin resistant staph aureus) culture positive (Primary Dx); Right foot pain; Skin ulcer of toe of right foot with fat layer exposed (HCC); Idiopathic progressive polyneuropathy; Infection of toe; Charcot arthropathy of midfoot; Ulcer of left foot, limited to breakdown of skin (HCC); Closed nondisplaced fracture of second metatarsal bone of right foot, initial encounterStart: 04-20-2025 End: 92-39-3693npxvyuzbgrTFXVUXQLBSD J BOHACHNot AvailableStart: 04-14-2025 End: 33-89-6976pywaeezpkvJCKUKDank Powell HospitalStart: 04-14-2025 End: 11-18-8158Qmrgdrjmzq hospital visit by Paola Adam MD Work Phone: mZ LaboratoryComment on above:Hyperglycemia; Mixed hyperlipidemia; Chronic renal impairment, stage 3a ([facility])Start: 04-12-2025 End: 63-61-7656Mjjuepikt Result EncounterChriskyle Sánchez DPM Work Phone: noms External Department UnsolicitedStart: 04-12-2025 End: 73-46-3942Goiwuafuw Result EncounterChjorge Sánchez DPM Work Phone: noms External Department UnsolicitedStart: 04-11-2025 End: 38-89-9608Zoieklqhb Result EncounterChjorge Sánchez DPM Work Phone: noms External Department UnsolicitedStart: 04-11-2025 End: 42-84-0168Pgocalote Result EncounterChriskyle Sánchez DPM Work Phone: noms External Department UnsolicitedStart: 04-11-2025 End: 59-77-0343wygubmebixCSEQHYNIWHHWiley Powell HospitalStart: 04-11-2025 End: 20-62-3895Ririquetau hospital visit by Anisha Sánchez DPM Work Phone: [facility]Comment on above:Pain in right footStart: 04-06-2025 End: 12-02-0786Lhqhpz outpatient visit 25 minutesChjorge Sánchez DPM Work Phone: noms WWW PODIATRYComment on above:Right foot pain (Primary Dx); Skin ulcer of toe of right foot with fat layer exposed (HCC); Infection of toe; Idiopathic progressive polyneuropathy; Generalized edemaStart: 04-06-2025 End: 34-29-3180aspmbdizxzSMEKOMSRFBZ J BOHACHNot AvailableStart: 04-06-2025 End: 77-50-8772Xvfrlu flowsTeresa Sánchez DPM Work Phone: noms WWW PODIATRYStart: 04-06-2025 End: 49-99-2442Hmmgkd Batsheva Sánchez DPM Work Phone: noms WWW PODIATRYStart: 04-04-2025 End: 65-66-3368Xnncooooy department patient visitSevero Case MD Work Phone: [facility] Emergency DepartmentComment on above: Pressure injury of deep tissue of toe, unspecified laterality (Primary Dx)Start: 03-14-2025 End: 74-58-3490Dhxlffame Block MD Work Phone: noms NEUROLOGYStart: 03-14-2025 End: 12-04-6307Znnfjhame Block MD Work Phone: noms NEUROLOGYStart: 03-14-2025 End: 06-54-8362Bxlcfp outpatient visit 25 minutesLynn Block MD Work Phone: noms SWS NEUR BComment on above:BUCK (obstructive sleep apnea) (Primary Dx); Claustrophobia ; HypersomniaStart: 03-14-2025 End: 54-83-0734antzmzlobqCPPZ D BEJNot AvailableStart: 02-15-2025 End: 56-26-8038qohifncrnwOOIYN [facility] Centertart: 02-15-2025 End: 28-01-5475Jqsnjzitze hospital visit by Paola Adam MD Work Phone: [facility] MammographyComment on above: Encounter for screening mammogram for malignant neoplasm of breastStart: 86-57-9213lmsgpnjaklOwiypndh:FTMCStart: 02-13-2025 End: 31-56-1614Tyktkf Therese Casas MD Work Phone: noms NEUROLOGYStart: 02-13-2025 End: 30-21-2131Baqfcg Therese Casas MD Work Phone: noms NEUROLOGYStart: 02-13-2025 End: 56-22-6955uikscfngznHCAUEWV W BAUERNot AvailableStart: 02-13-2025 End: 42-62-9480Zcssda outpatient visit 25 minutesTrace Casas MD Work Phone: noms SWS NEURComment on above:Charcot's joint, left ankle and foot (Primary Dx); Gait instability; Idiopathic progressive polyneuropathy; Intractable 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 (CMS/HCC); Restless legs; Carpal tunnel syndrome, bilateral; BUCK (obstructive sleep apnea)Start: 12-06-2024 End: 77-98-5517Rkazsn Magen Block MD Work Phone: noms NEUROLOGYStart: 12-06-2024 End: 50-04-8635Etayhs Magen Block MD Work Phone: noms NEUROLOGYStart: 12-06-2024 End: 04-61-4878ckwjmcwrzsPFKV D BEJNot AvailableStart: 12-06-2024 End: 02-73-9695Plglxe outpatient new 60 minutesLynn Block MD Work Phone: noms SWS NEUR BComment on above:BUCK (obstructive sleep apnea) (Primary Dx); BUCK on CPAP; Claustrophobia (CMS/HCC)Start: 11-14-2024 End: 04-20-0294Elastw flowsheetFelicia C Windnagel MANAGER MAC Work Phone: noms BM NEUROLOGYStart: 11-14-2024 End: 20-96-7919Hcycco flowsheetFelicia C Windnagel MANAGER MAC Work Phone: noms BM NEUROLOGYStart: 11-14-2024 End: 28-99-1951Dmtogq outpatient visit 25 minutesFelicia Jamila Guzmannagel MANAGER MAC Work Phone: noms SWS NEURComment on above:BUCK on CPAP (Primary Dx); Idiopathic progressive polyneuropathy; Restless legs; Intractable 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 (CMS/HCC) Start: 11-14-2024 End: 84-98-0115yvejaofyylKGAPAOA C JAIMEEGELNot AvailableStart: 11-14-2024 End: 10-92-2001lihmjsgiyvZNJSD BACKCherrington Hospitaltart: 11-14-2024 End: 34-80-7520Tlsxpujzzp hospital visit by Paola Adam MD Work Phone: mZ LaboratoryComment on above:Pre-diabetes; Mixed hyperlipidemiaStart: 11-02-2024 End: 73-15-7749Dsztubsnu encounterJanel Allen MANAGER MAC Work Phone: noms [facility] NEURO 210Start: 10-11-2024 End: 87-79-6029Rrtyqp outpatient new 45 minutesBilrubens Adam MD Work Phone: [facility], Nose and Throat PhysiciansComment on above:Thyroid nodule (Primary Dx); Lipoma of neckStart: 10-11-2024 End: 18-94-2472wjcrargbzbRFBNS BACKOhio Health AmbulatoryStart: 10-05-2024 End: 14-64-5340BdijwzPzqizxh W Bauer MD Work Phone: noms SWS NEURComment on above:Idiopathic progressive polyneuropathy; Non-seasonal allergic rhinitis due to pollenStart: 09-14-2024 End: 47-68-9771Ehyuwf flowsheetFelicia C Megannashena MANAGER MAC Work Phone: noms BM NEUROLOGYStart: 09-14-2024 End: 85-77-0799Qxxqlt flowsheetFemadelynia Jamila Meng MANAGER MAC Work Phone: noms BM NEUROLOGYStart: 09-14-2024 End: 41-50-6411Agemggxvm encounterFelicvirgen Meng MANAGER MAC Work Phone: noms [facility] NEURO 210Start: 09-14-2024 End: 99-86-4398Ffpiod outpatient visit 25 minutesFelicvirgen Meng MANAGER MAC Work Phone: noms SWS NEURComment on above:BUCK on CPAP (Primary Dx); Idiopathic progressive polyneuropathy; Intractable 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 (CMS/HCC); Restless legs; Bilateral carpal tunnel syndromeStart: 09-14-2024 End: 66-00-3811wcpipazoezCUVGIYL Jamila YUSRANot AvailableStart: 09-09-2024 End: 89-60-4168Fxoubzmugh OrdersFelicia Bangsaint francis hospital & medical centert [facility] Hospitaleal ENT AshlandComment on above:Thyroid nodule (Primary Dx)Start: 09-06-2024 End: 23-22-8156pgmpmgfhmcAYJWRMemorial Health System Selby General Hospitaltart: 09-06-2024 End: 27-64-2506Frqembimyy hospital visit by physicianFelipe Adam MD Work Phone: [facility] UltrasoundComment on above: Thyroid noduleStart: 08-11-2024 End: 15-85-8163MapxokHujdasi W Bauer MD Work Phone: [facility] NEURComment on above:Idiopathic progressive polyneuropathy; Non-seasonal allergic rhinitis due to pollenStart: 06-10-2024 End: 88-72-0262Tvjyhx Therese Casas MD Work Phone: [facility] NEUROLOGYStart: 06-10-2024 End: 45-77-0217Ukdyjz Therese Casas MD Work Phone: [facility] NEUROLOGYStart: 06-10-2024 End: 81-07-2503Pdcvyy outpatient visit 25 minutesTrace Casas MD Work Phone: [facility] NEURComment on above:Idiopathic progressive polyneuropathy (Primary Dx); Bilateral carpal tunnel syndrome; Restless legs; Intractable 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 (CMS/HCC) Start: 06-10-2024 End: 43-62-3636ymhuznlxjtYUFUCPA W BAUERNot AvailableStart: 05-10-2024 End: 22-65-1229Sbokpmfevj hospital visit by Paola Adam MD Work Phone: mwh[facility] LaboratoryStart: 05-10-2024 End: 35-49-3492Uuojfy outpatient visit 40 minutesNicole Ginger DO Work Phone: [facility] NEUROComment on above:BUCK (obstructive sleep apnea); Hypersomnia; Snoring; Class 2 obesity due to excess calories with body mass index (BMI) of 38.0 to 38.9 in adult, unspecified whether serious comorbidity presentStart: 02-15-2024 End: 74-13-8441itqohsxldfQlcdj D HighlanderFacility:[facility] Centertart: 02-15-2024 End: 74-28-5680qlujnuadohFID [facility] Work Phone: [facility] Work Phone: Start: 02-15-2024 End: 32-99-8618Cxjhwvbc ReferredDP [facility] Work Phone: [facility]-LAB Path Spec Ursula HospStart: 06-15-2023 End: 28-00-8162Nidyrhlgsk hospital visit by Paola Adam MD Work Phone: mWHZ LaboratoryComment on above:Mixed hyperlipidemia Start: 94-91-3773xzyszcybzmZZIQPWexner Medical Center PhysiciansStart: 03-03-2023 End: 23-30-4453Yyfeja outpatient new 45 minutesMASSIMO Shook DPM Work Phone: [facility] Physicians GroupComment on above:Charcot arthropathy of midfoot (Primary Dx); Gastrocnemius equinus, unspecified laterality; Foot pain, leftStart: 02-11-2023 End: 76-27-8311jnljqkojnuPPZOJ D HIGHLANDERFacility:M5Vyqdi: 02-05-2023 End: 49-63-6340Lcaoqlabbz hospital visit by Paola Adam MD Work Phone: mZ LaboratoryComment on above:Pelvic pressure in femaleStart: 02-04-2023 End: 74-84-7488odalazrlkwPEBOZ D [facility]IN CAMPUSANDERFacility:Y5Blxug: 01-28-2023 End: 65-56-2185gxvrrxdosmGINQN D [facility] MAIN CAMPUSANDERFacility:V4Zzumo: 01-06-2023 End: 44-60-5901Xgkrdlzbf department patient visitGracie Square Hospitaltart: 07-09-2022 End: 16-67-2326Grkvoidupg hospital visit by JOE Rod RD Work Phone: mZ Diet and NutritionComment on above:ArrivedStart: 07-02-2022 End: 86-46-1855Dqkdxjqefz hospital visit by Efren Diabetes Education Work Phone: mWHZ Diabetic EducationStart: 06-25-2022 End: 15-75-5576Uxucbofpwl hospital visit by physicianTennille Additional [facility] At [facility] RadiologyComment on above:Foreign body (FB) in soft tissue Start: 06-25-2022 End: 91-31-3160Fmkggvfhvu hospital visit by [facility] Mri Scanner [facility] Centerard MRIComment on above:Pain of foot, unspecified laterality; Closed nondisplaced fracture of second metatarsal bone of left foot, initial encounter; Closed nondisplaced fracture of lateral cuneiform of left foot, initial encounterStart: 05-27-2022 End: 49-44-7961Ikkizgzspq hospital visit by physicianPeconic [facility] Ultrasound [facility] UltrasoundComment on above:Neck massStart: 04-28-2022 End: 88-26-5386zxqltqpafuVDLPYM S GOINESMercy [facility] Medical Centertart: 04-28-2022 End: 77-81-3134Laaxbusygc hospital visit by Paola Adam MD Work Phone: MALZ LABORATORYComment on above:Acute cystitis with hematuriaStart: 04-12-2022 End: 85-31-2548Viefromuwm hospital visit by Paola Adam MD Work Phone: mWHZ LaboratoryComment on above:Fatigue, unspecified type; Encounter for screening for HIV; Mixed hyperlipidemia; Hyperglycemia; Chronic renal impairment, stage 3b (HCC)Start: 02-05-2022 End: 96-49-7154Kpfvisupxg hospital visit by Kaylah PAYTON Physical TherapyStart: 02-04-2022 End: 02-19-7091Tdnpeoc encounter procedureKettering [facility] Ctr-MRI Strub RdStart: 02-03-2022 End: 86-51-1739Erqfztmlkk hospital visit by Bradley Johnson Physical TherapyStart: 01-29-2022 End: 38-91-6799Usinviinxz hospital visit by Ivan VIGIL Physical TherapyComment on above:ArrivedStart: 01-27-2022 End: 40-62-5320Phfmswdmqn hospital visit by Kaylah PAYTON Physical TherapyComment on above:ArrivedStart: 01-24-2022 End: 95-36-2332Guixbwtpqv hospital visit by Jojo GREENZ Physical TherapyComment on above:ArrivedStart: 01-22-2022 End: 76-61-1338Qtnezigbma hospital visit by Ivan VIGIL Physical TherapyStart: 01-17-2022 End: 89-61-3755Hapuwlyjnh hospital visit by Ivan VIGIL Physical TherapyComment on above:ArrivedStart: 01-13-2022 End: 28-57-3548Jxrnlgxbpd hospital visit by Kaylah PAYTON Physical TherapyStart: 01-03-2022 End: 50-17-5675Vlynszotsd hospital visit by Ivan Rangel PTAMWHZ Physical TherapyComment on above:ArrivedStart: 12-31-2021 End: 27-14-9237Sucglcsxrf hospital visit by Renetta Herman OTMWHUzair Occupational TherapyComment on above:ArrivedStart: 12-30-2021 End: 54-58-2849Glyenfqmmh hospital visit by Renetta Herman OTMOUNT SINAI HOSPITALUzair Occupational TherapyComment on above:ArrivedStart: 12-23-2021 End: 61-68-6233Phzstdvbfj hospital visit by Renetta Herman OTMOUNT SINAI HOSPITALUzair Occupational TherapyComment on above:ArrivedStart: 11-29-2021 End: 14-66-0379cdqielkekbYKXPDAugusta University [facility] Georgiatart: 08-01-2021 End: 68-92-0715Ktqefjvcue hospital visit by Paola Adam MD Work Phone: mW LaboratoryComment on above:Frequent UTI; Urinary urgency; Urinary frequencyStart: 07-11-2021 End: 30-04-7569Roixkwmduv hospital visit by Paola Adam MD Work Phone: mwhz LaboratoryComment on above:Frequent UTI; Urinary urgency; Urinary frequencyStart: 06-11-2021 End: 22-79-5536Iecfnrishc hospital visit by Paola Adam MD Work Phone: mwhz LaboratoryComment on above:Acute cystitis with hematuria; Recurrent UTIStart: 05-27-2021 End: 87-23-9733Szzwdptyan hospital visit by Paola Adam MD Work Phone: mwhz LaboratoryComment on above:Difficult or painful urinationStart: 05-20-2021 End: 13-75-5972Jzgitmqbls hospital visit by Paola Adam MD Work Phone: mwhz LaboratoryStart: 04-13-2021 End: 24-41-2339Cdikcytclo hospital visit by Paola Adam MD Work Phone: mwhz LaboratoryComment on above:Acute cystitis with hematuriaStart: 02-13-2021 End: 65-83-7405Ytkhuuipoq hospital visit by physicianPe[facility]ic [facility] Andriy19 Pat Screening ScheduleMWHZ PRE ADMITComment on above:Suspected COVID-19 virus infectionStart: 01-21-2021 End: 74-55-2246Xixdhynnfc hospital visit by physicianPeconic [facility] Center Covid19 Pat Screening ScheduleMWHZ PRE ADMITComment on above:Viral illnessStart: 11-15-2020 End: 38-87-0173Xgbhbigpiu hospital visit by physicianPeconic [facility] Medical Center Covid19 Pat Screening ScheduleMWHZ PRE ADMITComment on above:ArrivedStart: 09-16-2020 End: 22-52-8807Wtymdxeml department patient visitChjorge Rooney Work Phone: [facility] EDComment on above:Acute thoracic back pain, unspecified back pain laterality (Primary Dx)Start: 08-24-2020 End: 76-38-8794Pxksjqzqaf hospital visit by physicianMississippi Baptist Medical Centerrubens AdamMOUNT SINAI HOSPITALUzair Laboratory Comment on above:Epidural abscessStart: 08-08-2020 End: 23-35-3669Skmpydezbw hospital visit by physicianMississippi Baptist Medical Centerrubens AdamMOUNT SINAI HOSPITALUzair Laboratory Comment on above:SOB (shortness of breath)Start: 07-24-2020 End: 65-02-9041Mtgqjhrvos hospital visit by physicianAdventhealth Deltona Er BackMOUNT SINAI HOSPITALUzair Laboratory Comment on above:Epidural abscessStart: 06-07-2020 End: 37-67-5442Ljmgzbvgow hospital visit by physicianAdventhealth [facility] BackLONG [facility] Laboratory Start: 05-25-2020 End: 73-04-0870Rybeqwcynb hospital visit by physicianAdventhealth Deltona Er BackMOUNT SINAI HOSPITALUzair Laboratory Comment on above:Vitamin D deficiency; Mixed hyperlipidemia; HyperglycemiaStart: 12-14-2019 End: 03-94-0459Rzhcvogqry hospital visit by physicianAdventhealth Deltona Er BackMOUNT SINAI HOSPITALUzair Laboratory Comment on above:MRSA (methicillin resistant Staphylococcus aureus) septicemia (HCC)Start: 09-24-2019 End: 88-07-3102Qzkbhennjg hospital visit by Paola Adam MD Work Phone: M[facility] HOSPITALZ LaboratoryStart: 09-12-2019 End: 26-39-3194Nixqtkwkag hospital visit by physicianBilly Back MD Work Phone: MWHZ SLEEP LABStart: 08-29-2019 End: 73-11-3852Hoxdqluspf hospital visit by [facility] Schedule [facility] SLEEP LABComment on above:ArrivedStart: 07-28-2019 End: 79-57-6647Cbwaqoelcr hospital visit by Kong Campos [facility] RadiologyComment on above:MRSA (methicillin resistant Staphylococcus aureus) septicemia (HCC)Start: 06-17-2019 End: 46-34-8929Tmolphnxjr hospital visit by Paola Pappas Laboratory Comment on above:MRSA (methicillin resistant Staphylococcus aureus) infection Start: 02-03-2019 End: 51-92-8494Trnavxq encounter procedureH[facility]one [facility] Start: 02-03-2019 End: 26-19-4009Kwsfvsbcpn hospital visit by Nilesh Casas Work Phone: [facility] MRIComment on above: Brachial neuritis; Peripheral nerve disorder; Spasm of muscleStart: 11-10-2018 End: 11-99-0175Swnohyo encounter procedureAndrey EarlyFacility:[place] Start: 10-18-2018 End: 67-64-6395Yjxjvio encounter procedureAndrey Early Work Phone: [facility] HospitalStart: 01-49-0712Rvnmpin encounter procedureLuis NiecyiFacility:[place]Start: 10-03-2018 End: 63-20-4650Mtzgvjj encounter procedureFelipe [facility] HospitalStart: 09-20-2018 End: 28-01-6079Kkububx encounter procedureLuis E NiecyiFacility:[facility] HospitalStart: 68-95-8885Egubghw encounter procedureFacility:9509Start: 38-65-6412Rxbcqmm encounter procedureLUIS E Evens [facility] HospitalStart: 09-06-2018 End: 92-80-7637Wgfwiyt encounter procedureHistorical [facility] REG Start: 08-31-2018 End: 29-12-1833Ucdvmfo encounter procedureHistorical [facility] REG Start: 08-27-2018 End: 97-88-8889Pvddcjq encounter procedureLuis E NiecyiFacility:[facility] HospitalStart: 37-89-4487Pqyuwdz encounter procedureFacility:9509Start: 08-15-2018 End: 03-28-3366Lvsbsivbbs and management of inpatientWABRENDA Schfaer [facility] Beachtart: 04-02-2018 End: 80-74-4068Hsmyhxa encounter procedureJosophie CalderonFacility:[place]icaStart: 02-69-5575Jfvbkea encounter procedureMelmalcom Jose ManuelFacility:[facility] Hospitalart: 02-04-2018 End: 40-85-3843LnbfdfvqipNutzvv [facility] HospitalStart: 88-82-9000Gwbsjtg encounter procedureTERBrock BROADDUS HOSPITALanuelRobert Wood Johnson University Hospitaltart: 11-17-2017 End: 30-17-2236NqhaujnijuSpzrtqdx Rings Work Phone: [facility]art: 10-20-2017 End: 88-70-1088JzpdxzssmtSWHWCLGDAKSHA Nevarez [facility] Healthtart: 40-06-8930Yybelck encounter procedureTERLakeHealth TriPoint Medical Centertart: 42-78-4311LvnxaqnktlPTOHXKAdvanced Care Hospital of Southern New Mexicotart: 10-09-2017 End: 27-74-5368Ejvyufa encounter procedureTERMagruder Hospital Start: 74-14-4041Tajdwbf encounter procedureTERMagruder Hospital Start: 60-57-2055PqhxklgjfyLHJWDKAdvanced Care Hospital of Southern New Mexicotart: 03-31-2017 End: 52-48-4795AhvafnnrduWETDOMWCHASE Merino [facility] Procedures DateProcedureProcedure DetailPerforming ClinicianStart: 30-39-8067Ynfbo metabolic panel calcium totalBilly Back Work Phone: start: 76-66-4259Xxdcw metabolic panel calcium total Damon PROCTOR Work Phone: Start: 84-17-4398N-reactive proteinKiharshal Segura PA Work Phone: Start: 53-67-6858Hcxmm function panelJadanny Samson MANAGER MAC-C Work Phone: Start: 94-28-0844Vyymf metabolic panel calcium total Peter D [facility] Hospitaljoanie DPM Work Phone: Start: 43-66-7588I-reactive proteinPeter D [facility] DPM Work Phone: Start: 72-78-0802CIKUPCYJNL CHECKPeter D [facility] DPM Work Phone: Start: 02-00-9275Tzxoufymuwumc metabolic panelBilly Back Work Phone: start: 65-99-3517Gqfpc panelBilly Back Work Phone: start: 82-34-4788FCK FOOT RIGHT W WO CONTRAST Robbin Sánchez DPM Work Phone: Start: 28-86-7720Rqc lower extrem oth/thn jt w/o & w/contr matrChristopher Adam Sánchez DPM Work Phone: Start: 82-17-8531Qecou of urea nitrogen quantitative Robbin Sánchez DPM Work Phone: Start: 52-71-8388IOEW BUN + CREATININEChristopher Adam Sánchez DPM Work Phone: Start: 40-01-4780Qcinaruxrz examination foot 2 views Robbin Sánchez DPM Work Phone: Start: 04-04-2025 End: 39-16-7797Ozkmo toe minimum 2 viewsSeevro Case MD Work Phone: Start: 17-06-0720S-reactive proteinSevero Case MD Work Phone: Start: 04-04-2025 End: 94-13-1072Fyhwtsyvppm peptideSevero Case MD Work Phone: Start: 73-12-8905Cmagullhcnvva metabolic panelBilly Back Work Phone: start: 17-51-5254Kfngk Jignesh Adam MD Work Phone: start: 24-07-8459Jm soft tissue head & neck real time ramesh Adam MD Work Phone: start: 11-30-2380Poiay function panelScatrina Forbes MD Work Phone: Start: 80-18-3953Onirr dip stick/tablet rgnt auto w/o microscopySwdomenica Forbes MD Work Phone: Start: 45-44-8604Hzghq Jignesh Adam MD Work Phone: start: 46-65-2523Cpjshogk Susan Cassidy DPM Work Phone: Start: 48-58-2161Oyk prim src wet mount nfct agtLuis Mclean PA-C Work Phone: Start: 09-56-4266Ets lower extrem oth/thn jt w/o & w/contr matrChristopher J Bohbobby DPM Work Phone: Start: 89-08-3427Lzpsybuswa examination foot 2 views Micky Lauren MD Work Phone: Start: 38-32-4124Ca soft tissue head & neck real time ramesh Adam MD Work Phone: start: 74-49-6887Aqtkzegcnsacv metabolic Jignesh Adam MD Work Phone: start: 64-05-4960Kjajr Jignesh Adam MD Work Phone: start: 49-44-6809RI lumbar spine wo conStart: 07-12-9788KP pre/post mri xrayStart: 06-84-3991Diondveutft observation [Identifier] in Cervix by Cyto stainMwhz Education Work Phone: Start: 43-81-4085Oaijd dip stick/tablet reagent auto microscopyThomas Desi MELENDREZ Work Phone: Start: 70-05-9371Syqoq dip stick/tablet reagent auto microscopyThomas Desi MELENDREZ Work Phone: Start: 59-62-9966Qgwpzoyykjn panelGregory Forbes MD Work Phone: Start: 21-00-0135Sjprp dip stick/tablet rgnt auto w/o microscopyGregory Forbes MD Work Phone: Start: 65-14-8536QGPAG-19Wendy Meka Hull BOOKKEEPING CLERK - CHAMFERING MACHINE OPERATOR Work Phone: Start: 17-46-7820WHLIG-Luis E Hartman Work Phone: Start: 51-48-3754Qngyo dip stick/tablet rgnt auto w/o microscopyChjorge Rooney Work Phone: Start: 09-16-2020 End: 25-66-7317Hakxj count complete auto&auto difrntl wbcChjorge Rooney Work Phone: Start: 64-41-6055Tcllwnlxyjfnc rate rbc automated Robbin Rooney Work Phone: Start: 09-83-7486Cbibw count complete auto&auto difrntl wbcLuis E Hartman Work Phone: Start: 03-81-4259G-reactive proteinLuis E Hartman Work Phone: Start: 23-90-8774Jsihldnqxkmoy rate rbc automatedLuis E Hartman Work Phone: Start: 74-83-9122Usqct count complete auto&auto difrntl wbcLuis E Hartman Work Phone: Start: 81-61-0549R-reactive proteinLuis E Hartman Work Phone: Start: 03-44-4661Iprmnhpfwwarv rate rbc automatedLuis E Hartman Work Phone: Start: 29-54-4601Bqwtxzi total xcpt refractometry urineHeather Forbes Work Phone: Start: 56-31-8130Eecgm dip stick/tablet rgnt auto w/o microscopyHeather Forbes Work Phone: Start: 52-18-487921 hydroxy includes fractions if performedBilly Back Work Phone: start: 44-89-2879Jtmuxfloptskv metabolic panelBilly Back Work Phone: start: 33-74-6411Pyywtfdcvk glycosylated p7wNgqge Back Work Phone: start: 16-62-6338Cbyhd panelBilly Back Work Phone: start: 54-34-3916Zmnvapnsmxi direct measurement ldl cholesterolBilly Back Work Phone: start: 20-66-4963FHZJMQK FASTING?Felipe Back Work Phone: start: 54-84-7635O-reactive proteinNora Longthorne Work Phone: Start: 24-20-9022Hewkstxfuf glycosylated r4bCqlfsgleqn Mónica Sawyeri BOOKKEEPING CLERK - CHAMFERING MACHINE OPERATOR Work Phone: Start: 08-72-2421JIRZWRS B12 & FOLATEJacsanta Harmonianharinder BOOKKEEPING CLERK - CHAMFERING MACHINE OPERATOR Work Phone: Start: 21-67-3242Zuarr spine cervical 4 or 5 viewsNora Longthorne Work Phone: Start: 45-75-5694Weois count complete auto&auto difrntl wbcNora Longthorne BOOKKEEPING CLERK - CHAMFERING MACHINE OPERATOR Work Phone: Start: 79-05-8236S-reactive proteinNora Longthorne BOOKKEEPING CLERK - CHAMFERING MACHINE OPERATOR Work Phone: Start: 49-00-3956Uydthcz serum plasma/whole blood Heather Forbes Work Phone: Start: 08-33-7771Cszwa of magnesiumHeather Forbes Work Phone: Start: 17-21-1122Dffjq of phosphorus inorganicSwdomenica Forbes Work Phone: Start: 89-71-7312Iceax of urea nitrogen quantitative Heatherwoody Forbes Work Phone: Start: 79-17-3777Thfws count hemoglobinSwdomenica Forbes Work Phone: Start: 36-97-9518Eekrskb totalSwapwoody Forbes Work Phone: Start: 62-64-1507Zugmuhasuvk panelSwapna Andrei Work Phone: Start: 80-79-4697Ozvdvvp total xcpt refractometry urineSwdomenica Forbes Work Phone: Start: 20-17-8854Viskcrtctu microscopic onlySwdomenica Forbes Work Phone: Start: 55-61-0035Fuoky dip stick/tablet rgnt auto w/o microscopySwdomenica Forbes Work Phone: Start: 49-64-0475F-reactive proteinLuis E Hartman Work Phone: Start: 17-00-6044Cbnrxwuhvnmwz rate rbc automatedLuis E Hartman Work Phone: Start: 35-95-6363DAZ of cervical spine without contrastExternal TranscribedStart: 10-03-2018 End: 56-18-3892Gtgoayfoxmo examination of blood, cultureLuis JaureguiComment on above:Performed By: #### BC #### Unless otherwise noted, all testing performed by [place] [address] CLIA: [id number] [employer] Specialist: Harshad Solano M.D.Start: 09-06-2018 End: 33-19-8345HFYL (OUTSIDE)Historical ProviderStart: 08-31-2018 End: 79-12-8183MWFX (OUTSIDE)Historical ProviderStart: 50-38-6196YD CONSULT TO HOME CARE NEEDSWABRENDA MARYtart: 23-77-9340Yoohz of magnesiumWASEEDIN CASASANStart: 56-53-0637Gcibi metabolic panel calcium totalWASEEM YESSENIAANStart: 21-00-6332Nfdrs count complete auto&auto difrntl wbcWASEEM YESSENIAtart: 46-80-9752Zlktvihvxjzjs (pct)JV MARYrt: 75-51-1359XNSUHUPTO PATIENTWASEEM YESSENIAtart: 08-25-2018 PULSE OXIMETRY, CONTINUOUSWASEEM YESSENIAANStart: 84-16-3792HYAOFI PICC LINEWASEEM YESSENIAANStart: 12-05-1876DRYDPNPUBHNTM NURSING CARE ORDER (SPECIFY)JV MARYrt: 53-52-2466APC ORDER FOR WALKER OPWASEEM YESSENIAANStart: 60-24-5860NVZAP OXIMETRY, CONTINUOUSWASEEM YESSENIAANStart: 21-05-8975DAGNQI PHYSICIAN (SPECIFY)JV APPLE Start: 77-27-4298UVKEVIH COMMUNICATIONWASEEM YESSENIAtart: 44-70-7354BBYEL CANNULA OXYGENWASEEM YESSENIAtart: 14-16-6032HZLXIWUFC SPIROMETRY RTWASEEM tart: 03-93-0075VIWGKVKZ OXYGEN THERAPY PROTOCOLWA YESSENIArt: 69-71-1471XXMXK OXIMETRY, CONTINUOUSWASEEM YESSENIAANStart: 91-94-8540Ojwps of magnesiumJV APPLE Start: 65-47-8320Xahtq metabolic panel calcium totalWASEEM USMANtart: 08-25-2018 Blood count complete auto&auto difrntl wbcWASEEM YESSENIAANStart: 14-84-4792BXONG OXIMETRY, CONTINUOUSWASEEM YESSENIAANStart: 38-26-5611SQHVL OXIMETRY, CONTINUOUSWASEEM KHANStart: 12-29-2384XJKGX OXIMETRY, CONTINUOUSWASEEM KHANStart: 28-05-0451XZHT GENERALWASEEM YESSENIAANStart: 73-89-7680YW EVAL AND TREATWASEEM YESSENIAANStart: 75-23-3506KS EVAL AND TREATWASEEM YESSENIAANStart: 26-69-4227DPRTP OXIMETRY, CONTINUOUSWASEEM YESSENIAANStart: 32-44-2216DGYZF OXIMETRY, CONTINUOUSWABRENDA APPLE Start: 60-59-8275NIIHNZPRP SPIROMETRY RTABRAZO SCOTTSDALE CAMPUSEDIN CASASANStart: 63-36-7531PWLNXLII OXYGEN THERAPY PROTOCOLMERCY [facility]ALTH [facility] USMANtart: 43-14-2483LDYCF OXIMETRY, CONTINUOUS JV YESSENIAANStart: 72-96-9308REHK FAST CULTURE WITH SMEARGRIFFIN MEMORIAL [facility] YESSENIAtart: 61-43-8365GJMONG STAINEDIN CASAStart: 58-27-2927RMNLLV CULTURENHBRENDA APPLE Start: 46-74-4151LFOQKH CULTUREABRAZO SCOTTSDALE CAMPUSEDIN CASASANStart: 99-31-0939DORGY OXIMETRY, CONTINUOUSWAGRIFFIN MEMORIAL HOSPITAL [facility] YESSENIAANStart: 96-92-9644Ozbxvnayvcjyw (pct)JV KHtart: 79-04-4184SOOFB OXIMETRY, CONTINUOUSWAGRIFFIN MEMORIAL HOSPITAL [facility] YESSENIAANStart: 86-83-1008UOUZK CAREMERCY HEALTH LOVE COUNTY [facility] USMANtart: 84-27-8811ZRDVBBOJOJCMY NURSING CARE ORDER (SPECIFY)JV APPLE Start: 35-95-4860DAMILILA PATIENTWAGRIFFIN MEMORIAL HOSPITAL [facility] YESSENIAtart: 60-50-6479UNODLL FOR SURGICAL PROCEDURESGRIFFIN MEMORIAL HOSPITAL [facility] YESSENIArt: 91-08-4173KKDPFZPUT AND AEROBIC CULTURENHBRENDA APPLE Start: 67-31-0382QUMDP OXIMETRY, CONTINUOUSWAGRIFFIN MEMORIAL HOSPITAL [facility] YESSENIAtart: 98-97-8796FKLZJ OXIMETRY, CONTINUOUSWASE YESSENIAANStart: 35-02-3358BCJSI OXIMETRY, CONTINUOUSWASEEM YESSENIAANStart: 91-16-3399UR CONSULT TO IV TEAMGRIFFIN MEMORIAL HOSP[facility] YESSENIAtart: 61-63-6927OGTXVJROM SPIROMETRY RTMERCY HEALTH [facility] YESSENIAtart: 19-87-8411LATBUCTN OXYGEN THERAPY PROTOCOLMERCY HEALTH [facility] USMANtart: 88-84-8107TCRAU OXIMETRY, CONTINUOUSWASEEM YESSENIAANStart: 08-23-2018 Blood count complete auto&auto difrntl wbcMERCY HOSPITAL ST. JOHN'Srt: 08-23-2018 Comprehensive metabolic panelDOCTORS HOSPITAL OF SPRINGFIELDtart: 65-41-8194Arisuoxggfk platelet assayWAGRIFFIN MEMORIAL HOSPITAL [facility] YESSENIAtart: 05-89-4731EOVBB OXIMETRY, CONTINUOUSWAGRIFFIN MEMORIAL HOSPITAL [facility] YESSENIAANStart: 71-23-9218SGHQZ OXIMETRY, CONTINUOUSWASEEM KHANStart: 97-12-7848QTNWV OXIMETRY, CONTINUOUSWASEEM KHANStart: 07-95-2322HUFAO OXIMETRY, CONTINUOUSWASEEM APPLE Start: 55-90-1506ULNXS OXIMETRY, CONTINUOUSWASEEM KHANStart: 91-75-1381TYEKUHUKM SPIROMETRY RTWASEEM YESSENIAANStart: 00-40-7417YRMEMVZJ OXYGEN THERAPY PROTOCOLWASEEM YESSENIAANStart: 09-65-0668EQJBU OXIMETRY, CONTINUOUSWASEEM KHANStart: 08-22-2018 Assay of magnesiumWASEEM YESSENIAANStart: 11-67-0231Ghkbh count complete auto&auto difrntl wbcWASEEM YESSENIAANStart: 80-13-6769SRWHICPKRU, TROUGHWASEEM YESSENIAANStart: 59-48-1129RKQKT OXIMETRY, CONTINUOUSWASEEM KHANStart: 62-61-8923SFFGN OXIMETRY, CONTINUOUSWASEEM KHANStart: 41-71-8395PXVBG OXIMETRY, CONTINUOUSWASEEM APPLE Start: 36-28-6972Rjylkjtyctbon (pct)JVMARISABEL MARYtart: 31-40-2304RTCXY OXIMETRY, CONTINUOUSWASEEM YESSENIAANStart: 43-03-1810MSLYW OXIMETRY, CONTINUOUSWASEEM APPLE Start: 55-69-4299Lni lower extrem oth/thn jt w/o & w/contr matrWASEEDIN MARYtart: 62-74-9125XXCOVVLYH SPIROMETRY RTWASEEM USMANtart: 05-38-2697VNPNNRDH OXYGEN THERAPY PROTOCOLWASEEM YESSENIAANStart: 83-84-0584OXCBH OXIMETRY, CONTINUOUSWASEEM KHANStart: 27-49-8292Yjkul of magnesiumWASEEM USMANtart: 61-10-8626Wgeui count complete auto&auto difrntl wbcWASEEM USMANtart: 68-85-6165VORRF OXIMETRY, CONTINUOUSWASEEM KHANStart: 73-68-0907WZNLE OXIMETRY, CONTINUOUSWASEEM APPLE Start: 67-63-3134ZQCGN OXIMETRY, CONTINUOUSWASEEM KHANStart: 08-20-2018 MISCELLANEOUS NURSING CARE ORDER (SPECIFY)JV USMANtart: 27-19-3495Duhly foot complete minimum 3 viewsEDIN MARYtart: 63-14-2963XMAQZ OXIMETRY, CONTINUOUS JV USMANtart: 93-75-3296X-reactive proteinGRIFFIN MEMORIAL HOSPITAL [facility] USMANrt: 08-20-2018 SEDIMENTATION RATEBRENDA MARYtart: 37-39-8919MERFC OXIMETRY, CONTINUOUSWABRENDA MARYtart: 27-69-3528AZLHAECNJ SPIROMETRY RTABRAZO SCOTTSDALE CAMPUSEDIN MARYtart: 18-87-9662FPALQPQH OXYGEN THERAPY PROTOCOLABRAZO SCOTTSDALE CAMPUSEDIN MARYtart: 09-76-9720WBNNC OXIMETRY, CONTINUOUS JV YESSENIAANStart: 22-17-6171Zeniu of magnesiumJV MARYtart: 73-86-2908Zdqpp count complete auto&auto difrntl wbcEDIN MARYrt: 97-15-1921HAPKG OXIMETRY, CONTINUOUSWABRENDA MARYtart: 70-06-0804HOUUY OXIMETRY, CONTINUOUSJV APPLE Start: 62-34-9871GTCIH OXIMETRY, CONTINUOUSWAEDIN AMRYtart: 55-89-8758WS CONSULT TO ORTHOPEDIC SURGERYGRIFFIN MEMORIAL [facility] USMANrt: 79-85-0636Obwdeesemwaij (pct) JVMARISABEL MARYrt: 85-81-0474DKVPI OXIMETRY, CONTINUOUSNHBRENDA MARYtart: 88-40-2554Mxc spinal canal cervical w/o & w/contr matrlJV MARYtart: 98-24-2537Bdi spinal canal lumbar w/o & w/contr matrlNHEM USMANtart: 80-59-5659Kym spinal canal thoracic w/o & w/contr matrlWAEM YESSENIAANStart: 11-29-6595SVCZX OXIMETRY, CONTINUOUSWABRENDA MARYtart: 80-61-4556TPVZIIAKQ SPIROMETRY RTABRAZO SCOTTSDALE CAMPUSEDIN MARYtart: 36-74-3930OHRGWXTH OXYGEN THERAPY PROTOCOLABRAZO SCOTTSDALE CAMPUSEDIN MARYrt: 85-19-9297SXSFC OXIMETRY, CONTINUOUSWAEM USMANtart: 05-10-6865ZZ CONSULT [facility] [place] USMANtart: 13-10-8124Aczlo of magnesiumJV APPLE Start: 80-92-5972Ahdqj count complete auto&auto difrntl wbcWABRENDA MARYtart: 23-49-6375VTTBF OXIMETRY, CONTINUOUSWASEEDIN MARYtart: 67-46-0583NGRMA OXIMETRY, CONTINUOUSWASEEM USMANtart: 50-30-5220WKESL OXIMETRY, CONTINUOUSWABRENDA APPLE Start: 88-92-4100JDZUT OXIMETRY, CONTINUOUSWASEEM YESSENIAANStart: 47-34-3922PCHXY OXIMETRY, CONTINUOUSWASEEM USMANtart: 31-10-6118VSUGAIOHL MONITORINGJV APPLE Start: 29-36-0164TMUSRTWQM SPIROMETRY RTNHBRENDA MARYtart: 05-34-8724KDKFFZMD OXYGEN THERAPY PROTOCOLABRAZO SCOTTSDALE CAMPUSEDIN MARYtart: 48-75-9050FPFBI OXIMETRY, CONTINUOUS JV YESSENIAANStart: 35-85-0148Rvozu of magnesiumWABRENDA MARYtart: 32-71-0614Gcxle count complete auto&auto difrntl wbcNHBRENDA MARYtart: 79-23-0938CYLAAFJYFI, TROUGHWABRENDA MARYtart: 00-72-9285YZEJZ OXIMETRY, CONTINUOUSWASEEDIN MARYtart: 85-01-9018XPZZJ OXIMETRY, CONTINUOUSWASEEDIN MARYtart: 50-98-7557NVSUI OXIMETRY, CONTINUOUSWASEEM USMANtart: 45-01-5983Ahpsbkiucwxza (pct)VJMARISABEL MARYrt: 93-50-0858KPEJN OXIMETRY, CONTINUOUSEDIN MARYtart: 17-11-2107SYZZVOI BLOOD #1 JVMARISABEL MARYtart: 29-62-8063HDMMO OXIMETRY, CONTINUOUSWASEEM YESSENIAANStart: 38-33-3236Nexu tthrc r-t 2d w/wom-mode compl spec&colr dWTUCSON HEART HOSPITALEDIN MARYtart: 39-84-5680SXJPNNUMF SPIROMETRY RTNHBRENDA MARYtart: 09-97-8858TLSYSOYD OXYGEN THERAPY PROTOCOLABRAZO SCOTTSDALE CAMPUSEDIN MARYtart: 57-24-1720ZCUQI OXIMETRY, CONTINUOUSWASEEM YESSENIAANStart: 52-54-8357Ovycu of magnesiumNHBRENDA MARYtart: 90-39-2566Odvxc count complete auto&auto difrntl wbcNHBRENDA MARYtart: 78-09-8476J-reactive protein JV USMANtart: 20-06-4381LCTTQRKTCACXO RATEWASEEM USMANtart: 41-10-9372JWEBF OXIMETRY, CONTINUOUSWASEEM YESSENIAANStart: 04-98-4170Grdr tthrc r-t 2d w/wom-mode compl spec&colr dWASEEDIN MARYtart: 02-00-5936FJJXE OXIMETRY, CONTINUOUSWASEEM YESSENIAANStart: 09-54-0525CFMIM OXIMETRY, CONTINUOUSWASEEM KHANStart: 10-27-9081RKWYW OXIMETRY, CONTINUOUSWASEEM YESSENIAANStart: 32-53-6785PDKNP OXIMETRY, CONTINUOUS JV YESSENIAANStart: 32-01-3388Seb-scan xtr veins complete bilateral studyWA YESSENIAtart: 54-27-5375Ltwh tthrc r-t 2d w/wom-mode compl spec&colr dWMITCHEL APPLE Start: 52-40-0310Al head/brain w/o contrast materialWAGRIFFIN MEMORIAL H[facility]PITAL – [facility]MAN YESSENIAtart: 08-16-2018 Radiologic exam chest 2 viewsGRIFFIN [facility]ORIAL [facility] YESSENIArt: 99-59-0261CDBLIDMXX SPIROMETRY RT JV YESSENIArt: 80-91-7079COWRBUDT OXYGEN THERAPY PROTOCOL YESSENIArt: 33-69-7792TEVPI OXIMETRY, CONTINUOUSWASEEM YESSENIAANStart: 64-49-6737ZFGHRGB ISOLATIONWAGRIFFIN MEMORIAL HOSPITAL [facility] USMANtart: 67-98-6368Sbaib of lactateWASE YESSENIAtart: 32-79-6473UBYHFFU, IONIZEDWASEEM YESSENIAtart: 77-59-2951UK CONSULT TO IV TEAM JV YESSENIArt: 61-71-6234Ldfdk of magnesiumWASEEM YESSENIAtart: 13-15-2518Wfend count complete auto&auto difrntl wbcGRIFFIN MEMORIAL HOSPITAL – [facility] rt: 47-64-5033Fswtltmqbzg time JV USMANtart: 87-22-3936HBGOG OXIMETRY, CONTINUOUSWASEEM YESSENIAANStart: 93-52-4967DDJXE WEIGHTSWAGRIFFIN MEMORIAL HOSPITAL [facility] YESSENIAANStart: 34-15-3859CAFPG OXIMETRY, CONTINUOUS JV YESSENIAANStart: 93-44-5929SCM 12-LEADWAMERCY HOSPITAL ST. JOHN'Srt: 58-10-0493Ldqer of lactateWAMERCY HOSPITAL ST. JOHN'Srt: 46-58-6441Wyeosekc I.cardiac mass concGRIFFIN MEMORIAL HOSPITAL – [facility] rt: 73-60-8898XXDPD OXIMETRY, CONTINUOUSBOONE HOSPITAL CENTERrt: 26-26-7103QHGPEKTG RT PROTOCOLMERCY HOSPITAL ST. JOHN'Srt: 12-67-6376ODJWBILXIH ANTIGEN, URINEGRIFFIN MEMORIAL [facility]OSP[facility] rt: 27-01-4531FWYQG PNEUMONIAE ANTIGENGRIFFIN MEMORIAL HOSPITAL – [facility] rt: 55-46-1594DT CONSULT TO NEUROLOGYMERCY HOSPITAL ST. JOHN'Srt: 35-61-5364Xlfqg of lactateGRIFFIN MEMORIAL [facility]OSP[facility] rt: 28-60-2664Arioumg bacterial blood aerobic w/id isolates rt: 84-73-3795ALREISS BLOOD #1 rt: 32-81-6218ICKSLMOXOB PNEUMONIAE ANTIBODY, IGMBOONE HOSPITAL CENTERrt: 49-72-2171Auwqyntihwrre (pct)JV rt: 82-76-2018Ziwmzxyk I.cardiac mass concrt: 19-39-4670MWOWAGHY PRIVILEGES WITH ASSISTANCEMERCY HOSPITAL ST. JOHN'Srt: 27-41-7653CQHJENCIO MONITORINGMERCY HOSPITAL ST. JOHN'Srt: 38-60-2636Pea bact xcpt urine blood/stool aerobic isolRANKEN JORDAN PEDIATR[facility] Start: 70-63-4916LQOWDIMWV DEEP BREATHING AND COUGHING rt: 54-09-8640ZDPY CODEWAMERCY HOSPITAL ST. JOHN'Srt: 98-14-3030DOMDWULCF SPIROMETRY RTGRIFFIN MEMORIAL HOSPITAL – [facility] rt: 25-07-6641VMNMTJMR OXYGEN THERAPY PROTOCOLMERCY HOSPITAL ST. JOHN'Srt: 25-70-3342MMDCFZ AND OUTPUT rt: 40-09-2259KS CONSULT TO INFECTIOUS DISEASESKANSAS CITY VA MEDICAL CENTERrt: 82-94-4517Zkhitljymxi observation Gram stain Nom (Unsp spec)JV KHrt: 28-72-0920VMCHPA PHYSICIAN (SPECIFY)JVBOONE HOSPITAL CENTERrt: 87-12-6824HLHUXXVI TO DOSE VANCOMYCINMERCY HOSPITAL ST. JOHN'Srt: 99-21-2323JEGML INTERMITTENT PNEUMATIC COMPRESSION DEVICEWASEEM WAKEMED CARY HOSPITALtart: 52-85-4878CBALG OXIMETRY, CONTINUOUSWASEEM ANStart: 38-34-9638TANZS SIGNSWASEEM WAKEMED CARY HOSPITALtart: 85-06-4669VSVOBJC STATUS (DIRECT)JV MARYtart: 35-39-8000OnccctpsrvxTbbom Back Work Phone: start: 74-30-5021Tzqqjpqxuch observation [Identifier] in Cervix by Cyto Armani Casas Plan of Treatment DateCare ActivityDetailAuthorStart: 79-18-5995Xccqq panelLipidsVcu Medical CenterStart: 89-63-4584Cvuym panelNaval Medical Center PortsmouthStart: 54-22-1290Hiipebht Vaccine (1 of 2)Shingles Vaccine (1 of 2)[facility], [place] Start: 24-10-0533Gizbj panelLipReston Hospital CenterStart: 12-10-2027 Screening for malignant neoplasm of colonBon Access Hospital DaytonStart: 45-51-2578Sjmld panelLipidsBON SECOURS RICHMOND COMMUNITY HOSPITALStart: 17-60-6555Sypvvbqlu for malignant neoplasm of breastBreast cancer screenBon [facility] [employer] Start: 53-87-3807GPD test (Diabetes, CKD 3-4, OR last GFR 15-59)GFR test (Diabetes, CKD 3-4, OR last GFR 15-59)[facility] CenterStart: 07-21-2026 GFR test (Diabetes, CKD 3-4, OR last GFR 15-59)GFR test (Diabetes, CKD 3-4, OR last GFR 15-59)[facility] CoinSeedUVA Health University HospitalStart: 40-72-0565HFD test (Diabetes, CKD 3-4, OR last GFR 15-59)GFR test (Diabetes, CKD 3-4, OR last GFR 15-59)[facility] CenterStart: 55-46-2446QIK test (Diabetes, CKD 3-4, OR last GFR 15-59)GFR test (Diabetes, CKD 3-4, OR last GFR 15-59)[facility] [employer] Start: 20-13-5587Unhee panelAdena Regional Medical Center HealthStart: 11-80-8406RGO test (Diabetes, CKD 3-4, OR last GFR 15-59)GFR test (Diabetes, CKD 3-4, OR last GFR 15-59)[facility] CenterStart: 28-34-1216Wcwqciidem A1c yvvuwjudcorQ4X test (Diabetic or Prediabetic)[facility] DaytonStart: 58-06-3263OOB test (Diabetes, CKD 3-4, OR last GFR 15-59)GFR test (Diabetes, CKD 3-4, OR last GFR 15-59)[facility] DaytonStart: 31-51-7658Zixwscpmdt MonitoringDepression MonitoringBon Access Hospital DaytonStart: 84-36-8595ZXT test (Diabetes, CKD 3-4, OR last GFR 15-59)GFR test (Diabetes, CKD 3-4, OR last GFR 15-59)[facility] Hospitalart: 64-74-7242Ajtosntjgh A1c tkxxiejoegfD4X test (Diabetic or Prediabetic)[facility] CenterStart: 10-12-2025 End: 14-61-0010Vbhvsxn encounter iwpdnzhwh83/08/2026 10:30 AM EST Office Visit [facility] [address] [place] [address] [place] [address] Dimas Adair MD [address] [place] [address] [facility] and Throat PhysiciansStart: 10-11-2025 End: 26-55-7082VO Head and neck soft tissueUS Soft Tissue Neck Imaging Routine Thyroid nodule Expected: 10/11/2025, Expires: 10/11/2026[facility] Work Phone: Comment on above:Expected: 10/11/2025, Expires: 10/11/2026Start: 08-29-2025 End: 94-86-9969Jvizqxt encounter ujxxfquce67/25/2025 11:45 AM EST Office Visit [facility] [address] [place] [address] Lynn Block MD [address] [place] [address], [place] [address] TERRY Gutierrez [facility] Start: 08-23-2025 End: 16-68-9050Mfojzow encounter gbivhawsa72/19/2025 1:00 PM EST Office Visit [facility] [address] [place] [phone] Jennie Van, BOOKKEEPING CLERK-CHAMFERING MACHINE OPERATOR [address] [place] [address] SHANNANRubén MccarthyBluff City NeurologyStart: 08-03-2025 End: 97-90-8539Sudgnhd encounter hlksronau34/30/2025 11:00 AM EDT Office Visit [address], [place] Felipe Adam MD [address] [place] [address] Return in about 3 months (around 07/19/2025).[facility] on above:Return in about 3 months (around 07/19/2025).Start: 07-27-2025 End: 35-75-4204Fhhdtmu encounter pumulrgbh88/23/2025 11:00 AM EDT Office Visit [address], [place] Felipe Adam MD [address] [place] [address], [place] [address] Return in about 3 months (around 07/19/2025).[facility] on above:Return in about 3 months (around 07/19/2025).Start: 94-31-7718OSZAL-19 Vaccine ( season)COVID-19 Vaccine ( season)Sid GasparClermont County HospitalStart: 05-31-2025 End: 14-57-3528PJ Cervical spine 4 or 5 ViewsXR cervical spine complete 4 to 5 views Imaging Routine Cervical paraspinal muscle spasm Expected: 05/31/2025, Expires: 05/24/2026[facility] Work Phone: Comment on above:Expected: 05/31/2025, Expires: 05/24/2026Start: 86-75-2371Foquc panelLipid [facility], KYStart: 05-24-2025 End: 58-42-9712Zclcqnl encounter qjirzzqhe31/20/2025 11:30 AM EDT Office Visit NOMRubén Gutierrez [facility] [address] [place] [phone] Jennie Van APRNWORCESTER STATE HOSP[facility] [address] [place] [address] NOMRubén Gutierrez NeurologyStart: 05-17-2025 End: 53-38-6838Sbyxadb encounter uuienetjp99/13/2025 1:20 PM EDT Office Visit [facility] [address] [place] [address] Trace Casas MD [address] [facility] [address] [address] [facility] NEURStart: 05-15-2025 End: 73-21-7345Jrmhemt encounter vparujslf15/11/2025 1:15 PM EDT Office Visit [address] [address] Felipe Adam MD [address] [place] [address] Return in about 6 months (around 05/15/2025).[facility] HospitalComhen[facility] on above:Return in about 6 months (around 05/15/2025).Start: 97-31-5963OCD test (Diabetes, CKD 3-4, OR last GFR 15-59)GFR test (Diabetes, CKD 3-4, OR last GFR 15-59)[facility] HEALTHStart: 18-78-9361Wtdtbyjun vaccinationVcu Medical CenterStart: 05-02-2025 Hemoglobin A1c xilpeyvczlxW7C test (Diabetic or Prediabetic)[facility] Hospitalart: 05-02-2025 End: 58-73-8204Jzttpye encounter /29/2025 2:00 PM EDT Office Visit [facility] NEUR B [address] [place] [phone] Fozia Meng, MANAGER MAC [address], [address] [place] [phone] [facility] NEUR BStart: 05-01-2025 End: 51-20-4479Heodkxq encounter jswectkts19/28/2025 4:00 PM EDT Office Visit [facility] [address] [place] [address] Robbin Sánchez, DPM [address] [place] [address] NOMS WWW PODIATRYStart: 04-20-2025 End: 56-58-9744Njtvhzj encounter qmgsedwhc07/17/2025 12:45 PM EDT Office Visit [facility] [address] [place] [phone] Robbin Sánchez, DPM [address] [place] [address] ArrivedNOMS WWW PODIATRYComment on above:ArrivedStart: 04-06-2025 End: 35-09-0255Osxxgvq encounter mijajaesp41/03/2025 4:30 PM EDT Office Visit [facility] [address] [place] [address] Robbin Sánchez, DPM [address] [place] [address] ArrivedNOMS [facility] PODIATRYComment on above:ArrivedStart: 04-06-2025 End: 23-67-0248Okrswdbtga [Mass/volume] in Serum or PlasmaCreatinine, Serum Lab Routine Right foot pain Expected: 04/06/2025 (Approximate), Expires: 04/06/2026 [facility]OM[facility] HealthcareComment on above:Expected: 04/06/2025 (Approximate), Expires: 04/06/2026Start: 04-06-2025 End: 99-00-8863QA Foot - right WO and W contrast IVMR foot right w and wo IV contrast Imaging STAT Right foot pain Expected: 04/06/2025, Expires: 04/06/2026 [facility] Work Phone: comment on above:Expected: 04/06/2025, Expires: 04/06/2026Start: 03-14-2025 End: 87-85-2956Smejldr encounter procedureNOMS [facility] NEUR BStart: 02-13-2025 End: 67-20-1289Vvxppng encounter jydgstukb40/12/2025 1:00 PM EDT Office Visit [facility] NEUR [address] [address] Trace Casas MD [address] [facility] [address] [place] [address] [facility] NEURStart: 20-02-4808Bdmfzshqga MonitoringDepression MonitoringBON PREMIER HEALTH ATRIUM MEDICAL CENTERStart: 11-15-2024 End: 57-43-9395Athfpkv encounter /11/2025 2:45 PM EST Office Visit [facility] [address] [place] [address] Felipe Adam MD [address] [place] [address] 6 [facility] HospitalComment on above:6 moStart: 11-14-2024 End: 89-73-9499Sgjalxe encounter procedureNOMS [facility] NEURComment on above:Arrived Start: 11-11-2024 End: 72-45-9565Zxzapna encounter jvyorohlp41/07/2025 1:00 PM EST Office Visit [facility] [address] [place] [address] Felipe Adam MD [address] [place] [address] 6 [facility] HospitalComment on above:6 moStart: 46-27-5031Qrvnbmodg for malignant neoplasm of cervixBON SECOURS CHILLICOTHE VA MEDICAL CENTERStart: 09-14-2024 End: 33-77-5784Dhefhzd encounter edgzjqbis03/11/2024 11:20 AM EST Office Visit [facility] NE[facility] [address] [facility] [address] [place] [address] Fozia Meng, MANAGER MAC [address] [phone] ArrivedNOMS [facility] NEURComment on above: ArrivedStart: 88-95-0483TPuO/Tdap/Td vaccine (2 - Td or Tdap)DTaP/Tdap/Td vaccine (2 - Td or Tdap)[facility] HospitalStart: 25-88-0632VQbY/Tdap/Td vaccine (2 - Td)DTaP/Tdap/Td vaccine (2 - Td)[facility] KYStart: 29-13-3856Ffkotuv vaccinationOhioHealthStart: 09-05-2024 End: 55-62-1994Jkihtbf encounter tnxcmpicg54/02/2024 1:00 PM EST Office Visit [facility] [address] [facility] [address] [place] [address] Trace Casas MD [address] [address] [facility] NEURStart: 08-18-2024 End: 47-88-7019Jqllxax encounter /14/2024 1:30 PM EST Office Visit [facility] [address] [place] [address] Luis Mclean, PACharitoC [address] [facility] [place], [place] [phone] 1 yr med chkMSt. Mary's Medical Center UrologyComment on above:1 yr med chkStart: 08-02-2024 End: 48-37-4383Nvwcsbj encounter ifueagjes90/29/2024 10:45 AM EDT Office Visit [facility] WN NEURO [address] [place] [address] Cheryl Miles DO [address] [place] [address] NOMS WNZ NEUROStart: 07-11-2024 End: 36-69-9086Mhnfxtlocuxu consultation with lcfyady8307/11/2024 11:30 AM EDT Telemedicine [facility] NE[facility]O [address] [place] [address], [place] [address] Janel Allen MANAGER MAC [address] [place] [address] [facility] NEURO 210Start: 06-10-2024 End: 83-95-2997Tysxrhv encounter dupfsbnro45/06/2024 10:20 AM EDT Office Visit [facility] SWS NEUR [address] [facility] [address] [place] [address] Trace Casas MD [address] [place] [address] ArrivedNOMS SWS NEURComment on above: ArrivedStart: 71-98-8063HYRNX-19 Vaccine ( season)COVID-19 Vaccine ( season)[facility] Centerart: 12-63-9567OTSPX-19 Vaccine ( season)COVID-19 Vaccine ( season)[facility]Start: 06-05-2024 Influenza vaccinationInfluenza Vaccine (#1)[facility] HospitalStart: 17-77-1997Iurasicvw for malignant neoplasm of colonBon [facility] VA Medical Centerart: 63-62-9729ATA test (Diabetes, CKD 3-4, OR last GFR 15-59)GFR test (Diabetes, CKD 3-4, OR last GFR 15-59)[facility] Hospitalart: 21-69-1087Iuhvvrwb screenDiabetes screen [facility]art: 05-12-2024 End: 66-33-1760Zdkfzjt encounter gzhuskkmy11/08/2024 11:00 AM EDT Office Visit [facility] Part of [address] [address] Lina Echols MD [facility] [place] [address] BUCK (obstructive sleep apnea)[facility] Part of [facility] CenterComment on above: BUCK (obstructive sleep apnea)Start: 15-26-5177Rfyyp panelLipid [facility], KYStart: 07-91-9079Ifdrl screenLipid [facility], [place] Start: 49-95-0062Iuobeczzx vaccinationFlu vaccine (#1)[facility] Start: 97-44-7978Wdioiwprrl MonitoringDepression MonitoringBON [facility] Memorial Hospitalart: 77-04-1410UKL test (Diabetes, CKD 3-4, OR last GFR 15-59)GFR test (Diabetes, CKD 3-4, OR last GFR 15-59)[facility] Hospitalart: 02-06-2024 Hemoglobin A1c mchqoedptkbO5E test (Diabetic or Prediabetic)[facility] Hospitalart: 08-13-2023 End: 30-91-6773Mcnjdwl encounter procedureBlanchard Valley Health [facility] Adnre UrologyStart: 06-22-2023 End: 24-64-6766Kqffgds encounter fqsvgzvve63/18/2023 11:15 AM EDT Office Visit [facility] [address] [place], [place] Felipe Adam MD [address] [place] [address] [facility]: 06-05-2023 Influenza vaccinationSequential Influenza Vaccine (Season Ended)[facility] Shawart: 64-38-5923Rjxtxctiv vaccinationBON [facility]: 04-14-2023 End: 45-40-4359Fayeerq encounter zdkzkorwe30/11/2023 Office Visit Family Medicine Felipe Adam MD [address] [place] [address] [facility]: 23-06-5871Opvavujwlh A1c sczdybqpyeqC5W test (Diabetic or Prediabetic)[facility]: 66-29-0841Lyyubmjjtc MonitoringDepression MonitoringBON [facility] Start: 79-41-7213Hzvjtrv and physical examination, annual for health maintenance Wellness VisitOhioHealthStart: 12-25-2022 End: 99-58-7281Xmkbwbp encounter gjfqfhrja44/23/2023 Office Visit Infectious Diseases Dav Hartman MD [address] [address] [facility]Start: 01-25-0008Slokvsds screenDiabetes [facility] Pittsburghart: 08-07-2022 End: 14-41-6419Nuweqnu encounter juybtllzd22/03/2022 Office Visit Urology Luis Mclean PA-C [address] [place] [address] [facility] UrologyStart: 07-15-2022 End: 05-04-8667Brxxkct evaluation of patient and ynyosa1807/15/2022 Nurse Only Family MedicineKossuth Regional Health CenterwichStart: 07-09-2022 End: 39-84-6148Tutmfoa encounter jnowqcgaj71/05/2022 Appointment IP Unit Samantha Lino RD, LD [facility] Diet and NutritionStart: 06-05-2022 Influenza vaccinationAdena Regional Medical Center HealthStart: 53-40-9923Vgcmxjlxsz measurementAdena Regional Medical Center HealthStart: 81-16-0364Mktayexjl [Moles/volume] in Serum or PlasmaPotassiumAdena Regional Medical Center HealthStart: 05-26-2377Lteraaktk monitoringPotassium monitoringAdena Regional Medical Center Health Start: 71-98-1579Hprczvkhdk measurementCreatinine monitoringBlanchard Valley [facility] System [facility] Work Phone: start: 68-75-9055Slwoxbpcv monitoringPotassium monitoringBlanchard Valley [facility] Work Phone: start: 96-75-2609Otwxcaoha vaccinationFlu vaccine (#1) [facility]ENTERStart: 20-85-1245Wbrbzplzh for malignant neoplasm of cervixOhioHealthStart: 02-05-2022 End: 94-52-3969Qukflro encounter ebgllzopc96/04/2022 Appointment Physical Therapy Christel Donohue PTMWHZ Physical TherapyStart: 02-03-2022 End: 61-13-7654Aekhvjx encounter procedureMWHZ Physical TherapyStart: 01-30-2022 End: 04-96-4889Mluydyz encounter procedureSt. [facility] Hospital UrologyStart: 01-29-2022 End: 00-09-4441Fsyxdmi encounter ywwpudwvm59/27/2022 Appointment Physical Therapy Beverly Rangel PTAMWHZ Physical TherapyStart: 01-27-2022 End: 93-57-0393Jykhzot encounter oonrvasve46/25/2022 Appointment Physical Therapy Christel Donohue PTMWHZ Physical TherapyStart: 01-24-2022 End: 17-31-2279Vdvbaws encounter pofhvoesd99/22/2022 Appointment Physical Therapy Vanessa Garcia PTMWHZ Physical TherapyStart: 01-22-2022 End: 27-15-9431Cmsqaiy encounter qwediklfg97/20/2022 Appointment Physical Therapy Beverly Rangel PTAMWHZ Physical TherapyStart: 01-17-2022 End: 10-72-3450Lbngkfv encounter jyxjbiatr65/15/2022 Appointment Physical Therapy Beverly Rangel PTAMWHUzair Physical TherapyStart: 01-10-2022 End: 72-67-9466Cppdchh encounter xdbmupqdq89/08/2022 Appointment Physical Therapy Christel Donohue PTMWHZ Physical TherapyStart: 01-08-2022 End: 38-30-6806Luwzsko encounter kkwajiwie74/06/2022 Appointment Physical Therapy Beverly Rangel PTAMWHUziar Physical TherapyStart: 01-02-2022 End: 01-78-6112Mwninqc encounter wpwxmiecq27/31/2022 Appointment Occupational Therapy Judi Marie OTA [address] [place] [address] [facility] Occupational TherapyStart: 91-72-9371Lojmwjui screenDiabetes screen [place], [place]Start: 12-31-2021 End: 68-80-5653Ymcnrjb encounter procedureMZ Physical TherapyStart: 12-30-2021 End: 86-50-3542Mwodnzx encounter raizuyllz87/28/2022 Appointment Occupational Therapy Cheryl Herman OTMWHUzair Occupational TherapyStart: 12-27-2021 End: 04-28-8412Nnjckco encounter jaelqxxlq44/25/2022 Appointment Occupational Therapy Eve Gaspar OTAMWHZ Occupational TherapyStart: 11-14-2021 End: 34-39-3999Ylyalhp encounter mhsjjfhpa71/10/2022 Office Visit Family Medicine Felipe Adam MD [address] [place] [address] [phone] [facility]Start: 52-12-7561Mtcqdvelpn MonitoringDepression MonitoringMercy HealthStart: 31-60-9650Unitttogpn measurementCreatinine monitoringMercy Health Work Phone: start: 96-68-6253Harpzhioo monitoringPotassium monitoringMercy Health Work Phone: start: 08-01-2021 End: 08-36-3389Vjwsylc encounter pcxljioyl74/28/2021 Office Visit Urology Lita Weeks MD [address] [facility] [place], [place] [phone] [facility] Hospitalard UrologyStart: 06-05-2021 Influenza vaccinationBlanchard Valley Health System Bluffton HospitalStart: 78-15-3641Zucrxymxnt measurement Creatinine monitoringC[facility] Clinic [facility], KYStart: 33-51-0664WjN6j (Bld) [Mass fraction]A1C test (Diabetic or Prediabetic)[facility], KYStart: 05-25-2021 Hemoglobin A1c ferlfuqeacwC9X test (Diabetic or Prediabetic)[facility] [employer] Work Phone: start: 84-65-7389Bijoldgfn monitoringPotassium [facility], KYStart: 11-13-2020 End: 58-33-6924Tfntlj Visit11/13/2020 Office Visit Family Medicine Felipe Adam MD [address] [place] [address] [phone] [facility] Primary [facility] CenterStart: 65-63-9074Lvsgwbbby monitoringPotassium monitoringCleveland Clinic [facility], KYStart: 10-23-2020 End: 65-21-0492Pgqcaq Visit10/23/2020 Office Visit Infectious Diseases Dav Hartman MD [address] [facility] [address] [place], [place] [id number] [facility]Start: 33-75-2414DeO0n (Bld) [Mass fraction]A1C test (Diabetic or Prediabetic)[facility] RevolutionCreditST. [facility], [place]Start: 70-78-2592Syuamnbfly measurementCreatinine monitoringAdena Regional [facility] Center Health [place], [place]Start: 62-39-5880Cdhadwlqia monitoringCreatinine monitoringAdena Regional [facility] Center [facility] [place], [place]Start: 59-47-8742Mckxabtaf monitoringPotassium monitoringAdena Regional Medical Center Health- [place], [place]Start: 06-12-2020 End: 44-30-1441Jxsihe Visit06/12/2020 Office Visit Infectious Diseases Dav Hratman MD [address] [place], [place] [id number] [facility]Start: 99-82-5495Qxsolyyzo vaccinationFlu vaccine (#1)[facility]: 45-54-5766Typypylh cancer screenCervical cancer screenSelect [facility]ty [facility] [place]: 82-37-5459Xtwocnvkc for malignant neoplasm of cervixNew HampshireHealthStart: 11-01-2019 End: 11-19-7607Dhvyyp Visit11/01/2019 Office Visit Infectious Diseases Dav Hartman MD [address] [place], [place] [id number] [facility], [facility] CenterStart: 07-28-2019 End: 73-90-9264Sktvbi Visit07/28/2019 Office Visit Infectious Diseases Dav Hartman MD [address] [place] [address] [phone] [facility], [facility].Start: 06-27-2019 End: 64-51-0546Dbpzn Only06/27/2019 Nurse Only Family [facility] CenterStart: 15-17-3501Nmqkiyehv vaccinationFlu vaccine (#1)[facility]: 37-07-5468Mpukvtuic vaccination givenSEQUENTIAL INFLUENZA VACCINE (Season Ended)[facility]: 36-35-2059Wzlpqjymy for malignant neoplasm of breastNew HampshireHealthStart: 85-40-3958Llnhczuea vaccinationINFLUENZA VACCINE (#1)[facility] Work Phone: Start: 03-23-2018 End: 46-31-1467VfksdguozvBfysHwuqnk Primary Care Women's HealthStart: 2009 Screening for malignant neoplasm of cervixHPV (without or with Pap)[facility]ENTERStart: 42-86-3932Xlbykblmj for malignant neoplasm of cervixPAP SMEAR [facility] Work Phone: Start: 42-00-1542Fswucqkkg B vaccine (1 of 3 - 19+ 3- dose series)Hepatitis B vaccine (1 of 3 - 19+ 3-dose series)Bon Bulmarolynnette [facility] HospitalStart: 54-13-5646Npzdx diphtheria, tetanus and acellular pertussis (DTaP) vaccinationTDAP (ADULT)[facility] Work Phone: Start: 65-47-6125Apttapbzn C screeningHepatitis C ScreeningCleveland Clinic Euclid HospitalStart: 01-77-3307Tnsstud vaccinationTETANFairfield Medical Center Work Phone: Start: 10-53-2896GGRLT-19 Vaccine (1)COVID-19 Vaccine (1)[employer] Work Phone: start: 64-91-5031AUN screenHIV screenCleveland Clinic Mentor Hospital, KYStart: 92-79-3394NCA screeningHIV screenBlanchard Valley Health System Bluffton HospitalStart: 71-54-9145UKJ screeningHIV SCREENING [facility] Work Phone: Start: 14-93-7646WYYCJ-19 Vaccine (1)COVID-19 Vaccine (1)[employer] Work Phone: start: 31-97-5901Msnedqdxjr MonitoringDepression MonitoringBlanchard Valley Health System Bluffton HospitalStart: 44-38-8161Wfkbcclnrd screening using PHQ-9 (Patient Health Questionnaire 9) scoreOhioHealthStart: 05-27-2891Mgvek screening for proteinUrine MicroalbuminOhioHealthStart: 25-03-0625Ieifimvcvujl Vaccine: Ped or At-Risk (1 - PCV)Pneumococcal Vaccine: Ped or At-Risk (1 - PCV)[facility]: 08-16-5276EGJPA-19 Vaccine (1)COVID-19 Vaccine (1)[facility] HospitalStart: 1982 History and physical examination, annual for health maintenanceAugusta Health Visit [facility]HealthStart: 67-92-1369YMZCT-19 Vaccine (#1)COVID-19 Vaccine (#1)[facility]: 84-15-0131Bpxelhubw B vaccine (1 of 3 - 3-dose series) Hepatitis B vaccine (1 of 3 - 3-dose series)[facility]: 24-45-0755Fpobsawxn for malignant neoplasm of colonNhioAdena [facility] End: 50-86-5324MPNKX-19COVID-19 Lab Routine Suspected COVID-19 virus infection 1 Occurrences starting 02/13/2021 until 02/13/2021[facility] Work Phone: comment on above:1 Occurrences starting 02/13/2021 until 02/13/20216207LYIXV-68TTAOZ-31 Lab Routine Suspected COVID-19 virus infection 02/13/2021 3:06 PM [employer] Phone: End: 99-25-8346UVBCT-19 AmbulatoryCOVID-19 Ambulatory Lab Routine SOB (shortness of breath) 1 Occurrences starting 08/08/2020 until 08/08/2020[facility], MDComment on above:1 Occurrences starting 08/08/2020 until 08/08/2020COVID-19 AmbulatoryCOVID-19 Ambulatory Lab Routine SOB (shortness of breath) 08/08/2020 4:02 PM [facility], MD End: 30-09-0482Qhwqnrmryz [Mass/volume] in UrineCreatinine, Random Urine Lab Routine Once for 1 Occurrences starting 05/20/2021 until 05/20/2021[facility] Phone: comment on above:Once for 1 Occurrences starting 05/20/2021 until 1Creatinine [Mass/volume] in UrineCreatinine, Random Urine Lab Routine 05/20/2021 7:57 PM [employer] Phone: End: 38-78-1133Jjzfadh, UrineCulture, Urine Microbiology Routine Acute cystitis with hematuria 1 Occurrences starting 04/13/2021until 04/13/2021[facility] Work Phone: comment on above:1 Occurrences starting 04/13/2021 until 1Culture, UrineMerBioPharmX Phone: End: 52-06-0992Lpuriqm, UrineCulture, Urine Microbiology Routine Difficult or painful urination 1 Occurrences starting 05/27/2021 until 05/27/2021[employer] Phone: comsqnd on above:1 Occurrences starting 05/27/2021 until 05/27/2021 End: 23-16-1886Ujcjtmg, UrineCulture, Urine Microbiology Routine Acute cystitis with hematuria Recurrent UTI 1 Occurrences starting 06/11/2021 until 06/11/2021 [employer] Phone: comdvzl on above:1 Occurrences starting 06/11/2021 until 06/11/2021 End: 52-11-5883Giodjox, UrineCulture, Urine Microbiology Routine Frequent UTI Urinary urgency Urinary frequency 1 Occurrences starting 07/11/2021 until 07/11/2021[employer] Phone: comtvtj on above:1 Occurrences starting 07/11/2021 until 07/11/2021 End: 81-79-3599Rdquzns, UrineCulture, Urine Microbiology Routine Frequent UTI Urinary urgency Urinary frequency 1 Occurrences starting 08/01/2021 until 08/01/2021[employer] Phone: comxzop on above:1 Occurrences starting 08/01/2021 until 08/01/2021 End: 64-72-1636Smsgjyu, UrineCulture, Urine Microbiology Routine Acute cystitis with hematuria 1 Occurrences starting 04/28/2022until 04/28/2022[employer] Phone: comebjo on above:1 Occurrences starting 04/28/2022 until 04/28/2022 End: 08-74-1460Fvnadvd, UrineBON [employer] Phone: comrehq on above:1 Occurrences starting 02/05/2023 until 02/05/2023 End: 34-89-7641Zwnqfrs, Wound (with Gram Stain)Bon tradeNOWComment on above:One Time for 1 Occurrences starting 04/04/2025 until 04/04/2025 End: 92-38-8932TZQ Breast - bilateral screeningBon SecSKURAComment on above:1 Occurrences starting 02/15/2025 until 02/15/2025 End: 97-56-7397Izjclwmxrg A1c/Hemoglobin.total in BloodBON [employer] Work Phone: comment on above:1 Occurrences starting 04/12/2022 until 04/12/2022 End: 55-29-6288Pcbcfxlwth A1c/Hemoglobin.total in BloodBON [employer] Work Phone: Comment on above:Once for 1 Occurrences starting 02/05/2023 until 02/05/2023 End: 54-53-3261Fmepyfbuyu A1c/Hemoglobin.total in BloodBon SecSKURA Comment on above:1 Occurrences starting 08/02/2025 until 08/02/2025 End: 43-69-2725Xpbw Sleep StudyNor[facility]ale [facility] Routine One Time for 1 Occurrences starting 08/29/2019 until 08/29/2019[facility]isionST[facility] [place] Comment on above:One Time for 1 Occurrences starting 08/29/2019 until 08/29/2019 End: 74-49-5179Wobdppmijpwwq Acid, SerumMethylmalonic Acid, Serum Lab Routine Once for 1 Occurrences starting 09/24/2019 until 09/24/2019[facility] Phone: combjhj on above:Once for 1 Occurrences starting 09/24/2019 until 09/24/2019Methylmalonic Acid, SerumMethylmalonic Acid, Serum Lab Routine 09/24/2019 9:33 AM [employer] Work Phone: End: 16-26-3312Ywrcuio Ab [Titer] in Serum by ImmunofluorescenceANA Lab Routine Once for 1 Occurrences starting 09/24/2019 until 09/24/2019[facility] Phone: comrvdc on above:Once for 1 Occurrences starting 09/24/2019 until 09/24/2019Nuclear Ab [Titer] in Serum by ImmunofluorescenceANA Lab Routine 09/24/2019 9:33 AM ESTJetbay Phone: End: 61-30-1833Gkwolal, urine, randomProtein, urine, random Lab Routine Once for 1 Occurrences starting 05/20/2021 until 05/20/2021[facility] Phone: comment on above:Once for 1 Occurrences starting 05/20/2021 until 1Protein, urine, randomProtein, urine, random Lab Routine 05/20/2021 7:57 PM [employer] Phone: End: 74-25-0592Ealvskraevxss RateSedimentation Rate Lab Routine MRSA (methicillin resistant Staphylococcus aureus) septicemia (HCC) 1 Occurrences starting 12/14/2019 until 12/14/2019[facility] HospitalMEDEMComment on above:1 Occurrences starting 12/14/2019 until 12/14/2019Sedimentation RateSedimentation Rate Lab Routine MRSA (methicillin resistant Staphylococcus aureus) septicemia (HCC) 12/14/2019 12:39 PM [employer] MD End: 78-29-8495Hmgtjdya syndrome-A extractable nuclear antibodySjogrens syndrome-A extractable nuclear antibody Lab Routine Once for 1 Occurrences starting 09/24/2019 until 09/24/2019[employer] Phone: comment on above:Once for 1 Occurrences starting 09/24/2019 until 09/24/2019Sjogrens syndrome-A extractable nuclear antibody Sjogrens syndrome-A extractable nuclear antibody Lab Routine 09/24/2019 9:33 AM [employer] Phone: End: 40-41-6504Behfnkoy syndrome-B extractable nuclear antibodySjogrens syndrome-B extractable nuclear antibody Lab Routine Once for 1 Occurrences starting 09/24/2019 until 09/24/2019[employer] Phone: comdzur on above:Once for 1 Occurrences starting 09/24/2019 until 09/24/2019Sjogrens syndrome-B extractable nuclear antibody Sjogrens syndrome-B extractable nuclear antibody Lab Routine 09/24/2019 9:33 AM [employer] Phone: End: 34-30-9219Dllwg Study with PAP TitrationSleep Study with PAP Titration Sleep Center Routine One Time for 1 Occurrences starting 09/12/2019 until 09/12/2019[employer] Phone: comment on above:One Time for 1 Occurrences starting 09/12/2019 until 09/12/2019 End: 80-98-3244Kmdogaa A5Dqaocvb B6 Lab Routine Once for 1 Occurrences starting 09/24/2019 until 09/24/2019[employer] Phone: comment on above:Once for 1 Occurrences starting 09/24/2019 until 09/24/2019Vitamin C0Vusarnr B6 Lab Routine 09/24/2019 9:33 AM [employer] Phone: XR Cervical spine 4 or 5 ViewsXR cervical spine complete 4 to 5 views Imaging Routine Cervical paraspinal muscle spasm 512:45 PM EDT[facility] Immunizations Immunization DateImmunizationNotesCare DinqcoauYsputkvv92-64-0239zbaxrtr toxoid, reduced diphtheria toxoid, and acellular pertussis vaccine, adsorbedBilly Back [facility], [place] Payers DatePayer CategoryPayerPolicy PO09-15-1699Wpgipun Care HMO (unspecified)[facility] HMO/CHOICE PLUS/DULCE/DULCE PLUS [id number] Health Insurance [id number]4362-44-3561Frztybv Health [id number] 1.2.840.778861.1.13.239.2.7.3.099293.33842-50-6508Ysng-bak hf78m4v3-286j-1823-2412-4189g5c9n18712-15-3190Wkgx Cross Blue Shield (Indemnity or Managed Care) - Out of StateBCBS OUT OF STATE [facility] ADA – ADA Member Subscriber Plan / Payer (Effective 2017-Present) Name: Celina Gaspar Relation to Subscriber: Spouse Name: ROBIN GASPAR Date of : 1979 Address: [address] [place] [address] Payer ID: [id number] (NAIC) Type: Not on file Address: [facility] [id number] [place] [phone]55-39-2381Ejgqokv [id number] 1.2840.744536.1.13.239.2.7.3.206450.315 [id number] 2014MedicaidCARESOURCE MANAGED MEDICAID [facility] MEDICAID xxxxxxxxxxx 2014-Presentxxxxxxxxxxx [id number] 840.1.904488.3.57[id number] .1.239948.3.57[id number] 2.16840.1.532209.3.57[id number] 2.16840.1.674855.3.57[id number] 2.16840.1.768105.3.57[id number] 2.840.1.362857.3.57[id number] 2.840.1.476629.3.579.2.[id number] 2.840.1.957297.3.57[id number] 2.840.1.632949.3.579.2.19929-63-6986Voeqxnz0840815 2.840.1.655364.3.579.2.30953-26-0188Qnqdqrz0102037 2.840.1.293418.3.57[id number] 2.840.1.209537.3.57[id number] 2.840.1.987658.3.579.[id number] 2.840.1.969738.3.579.2.[id number] 2.16840.1.599949.3.579.[id number] 2.840.1.933133.3.579.2.251173-61-8960Yoqsazw53606973 2.0.1.552420.3.579.2.349896-54-5517Upsbdmv83794083 2..1.505061.3.579.2.893017-62-9684Stkbjbw80466847 2.0.1.609126.3.579.2.503993-00-1615Gniepdq74408512 2..1.178203.3.579.2.952550-58-2197Xcjxpkd49934322 2..1.417335.3.579.2.789801-98-8623Ssuqler3815132 2..1.001036.3.579.2.436107-62-5163Rkgmyub7698760 2..1.580932.3.579.2.982867-60-2844Cddjfqb8279501 2..1.202616.3.579.2.673209-08-8199Rphgsuc7714776 2..1.776284.3.579.2.791697-11-6540Kcvnpfr3720170 2..1.460656.3.579.2.231226-97-4273Rtyfhxm57248327 2..1.612133.3.579.2.24208-60-9835Pkcvmvq26151149 2..1.241251.3.579.2.84020-24-3824Dspllln21666596 2..1.671016.3.579.2.97516-54-9823Jgvvhmu40717043 2..1.016510.3.579.2.93440-14-8665Romfuni03873785 2.0.1.113612.3.579.2.42805-73-8524Cdguvkt79686131 2.16.840.1.096634.3.579.2.58681-46-9444Qkshhxj12423959 2.16.840.1.196073.3.579.2.49608-75-0968Uklvhsc19603262 2.16.840.1.080973.3.579.2.70498-19-2844Jhfgjqu73958546 2.16.840.1.583024.3.579.2.76746-25-8835Xrjpsnm10945251 2.16.840.1.843443.3.579.2.51211-69-9059QhgfvkxJRQ556164282331 1.2.840.269530.1.13.239.2.7.3.352946.457Gsjurkk779Hqcteph62281278 2.16.840.1.605540.3.579.2.531 Social History DateTypeDetailFacilityStart: 05-01-2015 End: 43-67-6759Iaoleks smoking status NHISNever smokerOhNewark Hospital Work Phone: Start: 04-47-5921Ogj Assigned At BirthNot on file [facility] Work Phone: Start: 05-27-2019 End: 08-56-5938Scfxkoi intakeNoSelect [facility] [place]: 12-13-2019 End: 19-74-2618Gbbiumh intakeCurrent non-drinker of alcohol (finding)[facility] [place]: 12-09-2019 End: 39-40-1417Jqymsxh SDOH Ucqmcavim4EcqmbSelect Medical Specialty Hospital [facility] [place]: 12-09-2019 End: 87-23-5989Upmnrwc SDOH Food Stdyz8IqnbpSelect Medical Specialty Hospital - [place]: 12-09-2019 History SDOH Transport Wca5QncvsSelect Medical Specialty Hospital [facility] [place]: 05-11-2020 End: 02-72-5754Tncgjqi use and exposureNever [facility] [place]: 10-30-2021 End: 54-63-7767Nqszqxwc to SARS-CoV-2 (event)Not sureSelect Medical Specialty Hospital - [facility] [place]: 46-02-4012Hgz [facility] Companytart: 58-60-6891Kvnnafm SDOH Hmnkmqtyc0UKF [employer] Work Phone: start: 01-06-2023 End: 19-13-7528Imzekaf of Social functionOhioHealthHow hard is it for you to pay for the very basics like food, housing, medical care, and heatingNot very hard Geod[employer]idStart: 21-79-1084Rewmtqa Health Questionnaire 9 item (PHQ-9) total score [Reported]0BON MessageMe(I/We) worried whether (my/our) food would run out before (I/we) got money to buy more.Never trueBON MessageMeAt any time in the past 12 months, were you homeless or living in mcc [including now]?NoBON [employer] HEALTHStart: 10-09-2020 Gender identityIdentifies as female gender (finding)[employer] Start: 72-31-6411Awhufc orientationHeterosexual (finding)BON [employer] HEALTHHow hard is it for you to pay for the very basics like food, housing, medical care, and heatingSomewhat hardBON [employer] HEALTHStart: 06-10-2024 End: 91-23-7151Fkjmqferz beverage intakeLifetime non-drinker (finding)[facility] HealthcareStart: 08-11-0242Fgxsmoa CommentCaffeine Intake: Yes, popNOAR HealthcareStart: 34-92-9434JsoXgypdn (finding)[employer] HealthHow often to you have a drink containing alcohol?NeverBon [employer] HealthStart: 04-20-2025 End: 47-20-7126Rqhdqbihf beverage intakeEx-drinker (finding)[facility] Start: 18-51-4614Hqsykbo Comment1-2 times a yearNOAR HealthcareNEGATED: Highlighted rowStart: NINFHistory of tobacco usePassive smokerBON [facility] Functional Status DateAssessmentResultFaSentara RMH Medical Center Clinical Notes 12-23-2021 to 07-31-2025 Note Date & RxylHsscTcexaqen15-19-0298 Telephone encounter Note* Telephone Encounter - Janel Allen NP - 07/31/2025 8:33 AM EDT OARRS reviewed. Sent. [facility] HospitalOqcrztgloc33-22-9779 Miscellaneous Notes* Telephone Encounter - Janel Allen NP - 07/31/2025 8:33 AM EDT OARRS reviewed. Sent. documented in this encounterSoutheast Missouri HospitalKfciltrvrd29-68-8818 History of Present illness Narrative* Jennie Van [...] reflexes: Goyo's absent. Ankle clonus absent. Coordination Hpqfve-em-wext, rapid alternating movements and asww-es-tiwy normal bilaterally without dysmetria. Gait Casual gait: [...] Continue current management plan documented in this encounterSoutheast Missouri HospitalOmidcahbgr01-75-3341 Telephone encounter Note* Telephone Encounter - Paresh Cary - 05/23/2025 9:36 AM EDT Patient same day canceled due to her foot being in a boot and cannot drive by herself. [facility] [place] HospitalQdqmauixhi89-27-4870 Miscellaneous Notes* Telephone Encounter - Paresh Luis Daniel - 05/23/2025 9:36 AM EDT Patient same day canceled due to her foot being in a boot and cannot drive by herself. documented in this encounterSoutheast Missouri HospitalWkqsjgobuv14-97-2568 History of Present illness Narrative* Robbin Sánchez, [...] next visit with xra documented in this encounterSoutheast Missouri HospitalRzlvcpmbel63-38-5676 Evaluation note* Diagnosis Chronic renal impairment, stage [...] for about 2 wks. She went to [facility] ER on 04-04-25, xrays, culture and [...] toe or midfoot but also Charcot MRI [facility] 04-11-25 11:30 AM, arrive at 11:00 AM. Pt notified. documented in this encounterSoutheast Missouri HospitalYnviwztjhe74-81-5779 Evaluation note* Diagnosis Chronic renal impairment, stage [...] laterality- Primary documented in this encounter [facility]06-10-2025 History of Present illness Narrative* Lynn Block [...] current (Dreamwear) mask. See below. Get all [facility] sleep studies (full). Weight loss. Claustrophobia (CMS/HCC) [...] about 6 weeks (around 04/25/2025), or MANAGER MAC. Lab Frequency Next Occurrence Therapeutic injection carpal [...] Neurology ? [address] ? [place], [place] [address] ? ? fax Neurology ? Clinical Neurophysiology ? Epilepsy ? Sleep Disorders ? Clinical Informatics documented in this encounterSoutheast Missouri HospitalHlnggwcmmv82-98-6260 Evaluation note* Diagnosis Chronic renal impairment, stage [...] reflexes: Goyo's absent. Ankle clonus absent. Coordination Puytns-qb-rava, rapid alternating movements and eoki-rc-ugxk normal bilaterally without dysmetria. Gait Normal casual, toe, heel and tandem gait. Romberg is absent. 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 She continues to have significant discomfort in her feet to interrupt her sleep. This is likely worsened by Gchlhjb-Narhl-Ozids for which she had surgery in February [...] nasal pillows. She will take this to [facility] in [place]. We will get the original sleep study from [facility] for review. She is following with Dr. Block for sleep medicine. EVALUATION: PSG 03/2024 - CPAP 70ziA74 w/heated humidification EMG of BUE 11/25 showed [...] by Trace Casas MD documented in this encounterSoutheast Missouri HospitalZtlnlrvlsu44-08-9281 History of Present illness Narrative* Lynn Block [...] in all four extremities, including at least research subject, finger abductors, biceps, triceps, deltoid, toe flexors [...] ? [address] ? [place] [address] ? ? fax Neurology ? Clinical Neurophysiology ? Epilepsy ? Sleep Disorders ? Clinical Informatics documented in this encounterSoutheast Missouri HospitalKqxbbjkert45-13-4754 Telephone encounter Note* Telephone Encounter - Janel Allen NP - 11/02/2024 9:16 PM EST Pharmacy sends medication clarification for nortriptyline as there are two directions on one received. Per ONUR Gunderson plan increase nortriptyline 50 mg 2 daily/bedtime total of 100 mg. [facility] HospitalLdbdzewqpy36-94-9158 Miscellaneous Notes* Telephone Encounter - Janel Allen NP - 11/02/2024 9:16 PM EST Pharmacy sends medication clarification for nortriptyline as there are two directions on one received. Per ONUR Gunderson plan increase nortriptyline 50 mg 2 daily/bedtime total of 100 mg. documented in this encounterSoutheast Missouri HospitalJvjploduva00-92-[address] [place] [address] (11) [facility] [address] [place] [address] MEDICAL OFFICE [facility] [address] Dept: [phone] Loc: [phone] MD Celina Browne 44 y.o. female Patient [...] Resource Strain: Medium Risk (05/08/2024) Received from [facility] Overall Financial Resource Strain (CARDIA) Difficulty of Paying Living Expenses: Somewhat hard Food Insecurity: No Food Insecurity (05/08/2024) Received from [facility] Hunger Vital Sign Worried About Running Out of Food in the Last Year: Never true Ran Out of Food in the Last Year: Never true Transportation Needs: Unknown (05/08/2024) Received from [facility] PRAPARE - Transportation Lack of Transportation (Non-Medical): No Housing Stability: Unknown (05/08/2024) Received from [facility] Housing Stability Vital Sign Unstable [...] of submandibular glands, clear salivary flow from [place]'s ducts, no stones of [place]'s ducts Temporomandibular Joint: no crepitus with motion, no tenderness on palpation, no mayo (more content not included)...[facility] Hooctcfozh60-37-5816 History of Present illness Narrative* Dimas Adair MD - 10/11/2024 10:05 AM EST [facility] [address] (11) [facility] [address] MEDICAL OFFICE [facility] [address] Dept: [phone] Loc: [phone] MD Celina Browne 44 y.o. female Patient [...] Resource Strain: Medium Risk (05/08/2024) Received from [facility] Overall Financial Resource Strain (CARDIA) Difficulty of Paying Living Expenses: Somewhat hard Food Insecurity: No Food Insecurity (05/08/2024) Received from [facility] Hunger Vital Sign Worried About Running Out of Food in the Last Year: Never true Ran Out of Food in the Last Year: Never true Transportation Needs: Unknown (05/08/2024) Received from [facility] PRAPARE - Transportation Lack of Transportation (Non-Medical): No Housing Stability: Unknown (05/08/2024) Received from [facility] Housing Stability Vital Sign Unstable [...] subma ndibular glands, clear salivary flow from [place]'s ducts, no stones of Felipe's ducts Temporomandibular [...] Hematological: Negative. Psychiatric/Behavioral: Negative. documented in this mclhgybngSnisEqgdkg18-61-0442 Telephone encounter Note* Telephone Encounter - Gwen Meng - 09/14/2024 2:18 PM EST Voicemail Received: Our numbers [phone] actually have a question regarding a prescription that was prescribed today, If someone could please call me back. Thank you. Byjuanpablo. [facility] HospitalOsqboavkzq51-54-0572 Miscellaneous Notes* Telephone Encounter - Gwen Meng - 09/14/2024 2:18 PM EST Voicemail Received: Our numbers [phone] actually have a question regarding a prescription that was prescribed today, If someone could please call me back. Thank you. Rosa Isela. documented in this encounterSoutheast Missouri HospitalLkmfinsjwv75-62-4284 Miscellaneous Notes* Telephone Encounter - My Johnson - 08/11/2024 12:03 PM EST Patient called and requested refill of Lyrica to be sent to [facility] in [place]. documented in this encounterSoutheast Missouri HospitalWhkudakenh40-71-4011 Telephone encounter Note* Telephone Encounter - My Johnson - 08/11/2024 12:03 PM EST Patient called and requested refill of Lyrica to be sent to [facility] in [place]. [facility] [place] HospitalTnuibvftio43-05-8498 History of Present illness Narrative* Tequila Obando [...] Grandfather Depression: At risk (01/28/2024) Received from [facility] PHQ-2 PHQ-9 Total Score: 6 [...] reflexes: Goyo's absent. Ankle clonus absent. Coordination Uwyzit-sx-mcwu, rapid alternating movements and qykz-vs-jkdy normal bilaterally without dysmetria. Gait Normal casual, [...] Follow up 3 months. documented in this encounterSoutheast Missouri HospitalXkjumraukz19-30-7549 History of Present illness Narrative* Cheryl Miles, [...] was counseled on the risks of stroke, MD, and sudden with BUCK, along with the [...] to clinic: 3-6 months documented in this encounterSoutheast Missouri HospitalAvyauvnvhq10-04-5616 History of Present illness Narrative* MASSIMO Shook [...] 2022. Shefollows with an outside provider in [place] and was immobilized for an extended period [...] Foot & Ankle Surgery documented in this [id number] NotePROCEDURE: XR ANKLE LT MIN 3 V, [...] Electronically authenticated by: PIPER MERCEDES Date: 2023-01-29 07:05[facility]04-27-2023 NotePROCEDURE: XR ANKLE LT MIN 3 [...] Electronically authenticated by: PIPER MERCEDES Date: 2023-01-29 07:05[facility]10-05-2022 History of Present illness Narrative* Samantha [...] BMR: 1573 calories Est. total calorie needs: ~5597-4226 Lab Results Component Value Date/Time TRIG 460 [...] bread Supper: pork chop or chicken, homemade libyan fries, mashed, or baked potato with broccoli [...] session duration: 55 minutes. [facility] Phone: 1(980) 273-392505-04-2022 History of Present illness Narrative* Christel Donohue, PT - 02/05/2022 9:[address] [facility] Date: 02/05/2022 Patient Name: Celina Gaspar : 1980 Pt No Showed Appt- Follow up call, left message on voicemail that patient discharged, but to call if has questions or concerns. Christel Donohue, PT Date: 02/05/2022 [facility] Phone: [phone] 643-241605-04-2022 Hospital course Narrative* Christel Donohue, PT - 02/05/2022 9:45 AM EDT Images from the original note were not included. [facility] Discharge Summary Patient: Celina Gaspar : 1980 Referring Practitioner: Liliane Sawyer APRN, CHAMFERING MACHINE OPERATOR Referral Date : 12/19/21 Diagnosis: Lumbar [...] Donohue, PT Date: 02/05/2022 [facility] this [facility] Phone: [phone] 190-331405-02-2022 History of Present illness Narrative* Jerica Melgar - 02/03/2022 10:[address] [facility] Date: 02/03/2022 Patient Name: Celina Gaspar : 1980 Pt Cancelled Appt due to no reason for cancel. Jerica Melgar Date: 02/03/2022 documented [facility] this [facility] Phone: 1(506) 593-866704-27-2022 History of Present illness Narrative* Beverly Rangel, JENNIFER - 01/29/2022 9:00 AM EDT Images from the original note were not included. [facility] Daily Note Date: [...] Increase trunk ROM B rotation WFL-Not Met Marketing Production Specialist Goals - Time Frame for dedicated intermodal truck driver goals : 10 Marketing Production Specialist Goals Time Frame for dedicated intermodal truck driver goals : 10 dedicated intermodal truck driver goal 1: Decrease pain low back 2/10 at worst x3 days for completing normal activities alf goal 2: Patient to report 50% decrease in radicular symptoms L LE Post Treatment Pain: 5/10 Time In: 0859 Time Out: 0947 Timed Code Treatment Minutes: 48 Minutes Total Treatment Time: 48 Minutes Beverly Rangel PTA Date: 01/29/2022 documented [facility] this [facility] Phone: [phone]) 846-317904-25-2022 History of Present illness Narrative* Christel Donohue, PT - 01/27/2022 3:45 PM EDT Images from the original note were not included. [facility] Daily Note Date: [...] Met Longterm Goals - Time Frame for alf goals : 10 Marketing Production Specialist Goals Time Frame for alf goals : 10 dedicated intermodal truck driver goal 1: Decrease pain low back 2/10 at worst x3 days for completing normal activities alf goal 2: Patient to report 50% decrease in radicular symptoms L LE Post Treatment Pain: 4/10 Time In: 15:50 Time Out : 16:19 Timed Code Treatment Minutes: 34 Minutes Total Treatment Time: 34 Minutes Christel Donohue, PT Date: 01/27/2022 documented [facility] this [facility] Phone: 1(524) 719-614704-22-2022 History of Present illness Narrative* Vanessa Castro Radha, PT - 01/24/2022 9:45 AM EDT Images from the original note were not included. [facility] Daily Note Date: [...] 4: Increase trunk ROM B rotation WFL Marketing Production Specialist Goals - Time Frame for alf goals : 10 Marketing Production Specialist Goals Time Frame for dedicated intermodal truck driver goals : 10 dedicated intermodal truck driver goal 1: Decrease pain low back 2/10 at worst x3 days for completing normal activities alf goal 2: Patient to report 50% decrease in radicular symptoms L LE Post Treatment Pain: 5/10 Time In: 0952 Time Out: 1030 Timed Code Treatment Minutes: 38 Minutes Total Treatment Time: 38 Minutes Vanessa Garcia, PT Date: 01/24/2022 documented in this [facility] Phone: [phone]) 643-827204-20-2022 History of Present illness Narrative* Beverly Gutiérrez Rangel, SHELTER CASE MANAGER - 01/22/2022 4:[address] [facility] Date: 01/22/2022 Patient Name: Celina Gaspar : 1980 Patient did not show up for her appointment. Message left on answering machine with a reminder of her next appointment on Thursday. Beverly Brock Claire, SHELTER CASE MANAGER Date: 01/22/2022 documented in this [facility] Phone: [phone]) 328-450404-15-2022 History of Present illness Narrative* Beverly Gutiérrez Rangel, SHELTER CASE MANAGER - 01/17/2022 10:30 AM EDT Images from the original note were not included. [facility] Daily Note Date: 01/17/2022 Patient Name: Celina Gaspar : 1980 (41 y.o.) Referring Practitioner: Liliane Sawyer APRN, CHAMFERING MACHINE OPERATOR Referral Date : 12/19/21 Diagnosis: Lumbar [...] WFL Longterm Goals - Time Frame for dedicated intermodal truck driver goals : 10 dedicated intermodal truck driver goal 1: Decrease pain low back 2/10 at worst x3 days for completing normal activities dedicated intermodal truck driver goal 2: Patient to report 50% decrease in radicular symptoms L LE Post Treatment Pain: 5/10 Time In: 1037 Time Out: 1107 Timed Code Treatment Minutes: 30 Minutes Total Treatment Time: 30 Minutes Beverly Rangel PTA Date: 01/17/2022 documented [facility] this [facility] Phone: [phone]) 859-559404-11-2022 History of Present illness Narrative* ISAIAH Metzger - 01/13/2022 3:[address] [facility] Date: 01/13/2022 Patient Name: Celina Gaspar : 1980 Pt Cancelled Appt due to no reason given. NABILA Metzger Date: 01/13/2022 documented in this [facility] Phone: [phone] 547-624304-01-2022 History of Present illness Narrative* Beverly Rangel PTA - 01/03/2022 9:45 AM EDT Images from the original note were not included. [facility] Daily Note Date: 01/03/2022 Patient Name: Celnia Gaspar : 1980 (41 y.o.) Referring Practitioner: [...] WFL Longterm Goals - Time Frame for alf goals : 10 alf goal 1: Decrease pain low back 2/10 at worst x3 days for completing normal activities dedicated intermodal truck driver goal 2: Patient to report 50% decrease in radicular symptoms L LE Post Treatment Pain: 5/10 Time In: 0948 Time Out: 1028 Timed Code Treatment Minutes: 40 Minutes Total Treatment Time: 40 Minutes Beverly Rangel PTA Date: 01/03/2022 documented [facility] this [facility] Phone: [phone] 264-254703-29-2022 History of Present illness Narrative* Cheryl Herman OT - 12/31/2021 9:30 AM EDT Images from the original note were not included. [facility] Daily Note Date: [...] Time Frame for Short term goals: STG=LTG Marketing Production Specialist Goals Time Frame for alf goals : 12 visits (01/24/2022) dedicated intermodal truck driver goal 1: pt to be indepenent in HEP-MET dedicated intermodal truck driver goal 2: Pt to demonstrate R wrist flexion to 65 degrees or more in order to engage in daily tasks-MET dedicated intermodal truck driver goal 3: Pt to demonstrate R wrist [...] Houser, OTR/L Date: 12/31/2021 documented in this [facility] Phone: [phone] Hospital course Narrative* Cheryl Castro NORMAN Herman - 12/31/2021 9:30 AM EDT Images from the original note were not included. [facility] Discharge Summary Patient: [...] has been provided w/ HEP for continued pinch/research subject strengthening & stretching. Therapist provided pt with handout on Carpal Tunnel Dos & Dont's to avoid re-injury. Prognosis: Fair Goals Short Term Goals Time Frame for Short term goals: STG=LTG Longterm Goals Time Frame for dedicated intermodal truck driver goals : 12 visits (01/24/2022) alf goal 1: pt to be indepenent in HEP-MET dedicated intermodal truck driver goal 2: Pt to demonstrate R wrist [...] Houser, OTR/L Date: 12/31/2021 documented in this [facility] Phone: [phone] History of Present illness Narrative* Christel Donohue, PT - 12/31/2021 8:30 AM EDT Images from the original note were not included. [facility] Evaluation Date: 12/31/2021 [...] Time Frame for alf goals : 10 dedicated intermodal truck driver goal 1: Decrease pain low back 2/10 [...] documented in this [facility] [employer] Phone: [phone]) 145-284503-28-2022 History of Present illness Narrative* Cheryl Herman OT - 12/30/2021 8:30 AM EDT Images from the original note were not included. [facility] Daily Note Date: [...] Time Frame for Short term goals: STG=LTG Longterm Goals Time Frame for alf goals : 12 visits (01/24/2022) alf goal 1: pt to be indepenent in HEP-MET dedicated intermodal truck driver goal 2: Pt to demonstrate R wrist flexion to 65 degrees or more in order to engage in daily tasks-MET alf goal 3: Pt to demonstrate R wrist extension to 60 degrees or more in order to engage in daily tasks-MET dedicated intermodal truck driver goal 4: Pt to be educated on carpal tunnel do's & dont's in order to prevent further repetitive injury to wrist-MET Time In: 835 Time Out: 915 Timed Coded Minutes: 40 Total Treatment Time: 40 THERESA Houser, OTR/L Date: 12/30/2021 documented in this [facility] Phone: 1(558) 185-614603-21-2022 History of Present illness Narrative* Cheryl Castro Batsheva, OT - 12/23/2021 8:30 AM EDT Images from the original note were not included. [facility] Evaluation Date: 12/23/2021 [...] completing these mvmts Left Hand Strength - Face Painter (lbs) Handle Setting 2: 54#, 50#, 53# (52.3# ave) Left Hand Strength - Pinch (lbs) Lateral: 13.5# Tip: 8# Palmar 3 point: 11# Right Hand Strength - Face Painter (lbs) Handle Setting 2: 53#, 54#, 53# [...] for alf goals : 12 visits (01/24/2022) dedicated intermodal truck driver goal 1: pt to be indepenent in HEP dedicated intermodal truck driver goal 2: Pt to demonstrate R wrist flexion to 65 degrees or more in order to engage in daily tasks dedicated intermodal truck driver goal 3: Pt to demonstrate R wrist [...] THERESA Houser, OTR/Matthew 12/23/2021 [facility] Phone: evalhbokqs note* Diagnosis Viral illness Unspecified viral infection, in conditions classified elsewhere and of unspecified site documented in this encounter [facility] Phone: evalczylru note* Diagnosis Suspected COVID-19 virus infection documented in this encounter [facility] Phone: evalvbtrgu note* Diagnosis Acute cystitis with hematuria Acute cystitis documented in this encounter [facility] Phone: evaluation note* Diagnosis Difficult or painful urination Dysuria documented in this encounter [facility] Phone: evalzysocc note* Diagnosis Acute cystitis with hematuria Acute cystitis Recurrent UTI Urinary tract infection, site not specified documented in this encounter [facility] Phone: evalsheqru note* Diagnosis Frequent UTI Urinary tract infection, site not specified Urinary urgency Urgency of urination Urinary frequency documented in this encounter [facility] Phone: evalsdhofv note* Diagnosis Frequent UTI Urinary tract infection, site not specified Urinary urgency Urgency of urination Urinary frequency documented in this encounter [facility] Phone: evalwokats note* Diagnosis MRSA (methicillin resistant Staphylococcus aureus) septicemia (HCC) Methicillin resistant staphylococcus aureus septicemia documented in this encounter [facility] noteNo assessment information availableRegency Hospital Company Work Phone: Evaluation note* Diagnosis Fatigue, unspecified type Encounter for screening for HIV Mixed hyperlipidemia Hyperglycemia Other abnormal glucose Chronic renal impairment, stage 3b (HCC) documented [facility] this encounter [facility] Work Phone: evalkmegnr note* Diagnosis Acute cystitis with hematuria Acute cystitis documented in this encounter [facility] Phone: evaluation note* Diagnosis Neck mass Swelling, mass, or lump in head and neck documented in this encounter [facility] Phone: evaluation note* Diagnosis Pain of foot, unspecified laterality Closed nondisplaced fracture of second metatarsal bone of left foot, initial encounter Closed nondisplaced fracture of lateral cuneiform of left foot, initial encounter documented in this encounter [facility] Phone: evaluation note* Diagnosis Foreign body (FB) in soft tissue Residual foreign body in soft tissue documented in this encounter [facility] Phone: evaluation note* Diagnosis Pelvic pressure in female Other specified symptom associated with female genital organs documented in this encounter [facility] Phone: evaloftsnm note* Diagnosis Charcot arthropathy of midfoot- Primary Gastrocnemius equinus, unspecified laterality Foot pain, left Pain in soft tissues of limb [facility]* Diagnosis Mixed hyperlipidemia documented in this encounter [facility]* Diagnosis Idiopathic progressive polyneuropathy Non-seasonal allergic rhinitis due to pollen documented in this encounter [facility]* Diagnosis Thyroid nodule Nontoxic uninodular goiter documented in this encounter [employer] note* Diagnosis Thyroid nodule- Primary Nontoxic uninodular goiter documented [facility]* Diagnosis BUCK on CPAP- Primary 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 (CMS/HCC) Restless legs Restless legs syndrome (RLS) Bilateral carpal tunnel syndrome Carpal tunnel syndrome documented [facility]* Diagnosis Idiopathic progressive polyneuropathy- Primary Bilateral carpal tunnel syndrome Carpal tunnel syndrome Restless legs Restless legs syndrome (RLS) Intractable 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 (CMS/HCC) documented in this encounter [facility] Healthcare[facility] note* Diagnosis BUCK (obstructive sleep apnea) Obstructive sleep apnea (adult) (pediatric) Hypersomnia Hypersomnia, unspecified Snoring Other dyspnea and respiratory abnormality Class 2 obesity due to excess calories with body mass index (BMI) of 38.0 to 38.9 in adult, unspecified whether serious comorbidity present documented in this encounter [facility] note* Diagnosis Idiopathic progressive polyneuropathy Non-seasonal allergic rhinitis due to pollen documented in this encounter [facility] note* Diagnosis Thyroid nodule- Primary Nontoxic uninodular goiter Lipoma of neck [facility]* Diagnosis 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 (CMS/HCC) documented in this encounter [facility] Healthcare[facility] note* Diagnosis BUCK on CPAP- Primary Idiopathic progressive polyneuropathy Restless legs Restless legs syndrome (RLS) Intractable 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 (CMS/HCC) documented in this encounter [facility] Healthcare[facility] note* Diagnosis Pre-diabetes Other abnormal glucose Mixed hyperlipidemia [facility] Diagnosis BUCK (obstructive sleep apnea)- Primary Obstructive sleep apnea (adult) (pediatric) BUCK on CPAP Claustrophobia (CMS/HCC) Other isolated or specific phobias documented in this encounter [facility] note* Diagnosis BUCK (obstructive sleep [...] apnea (adult) (pediatric) documented in this encounter [facility] note* Diagnosis BUCK (obstructive sleep apnea)- Primary Obstructive sleep apnea (adult) (pediatric) BUCK on CPAP Claustrophobia Other isolated or specific phobias BUCK (obstructive sleep apnea)- Primary Obstructive sleep apnea (adult) (pediatric) Claustrophobia Other isolated or specific phobias Hypersomnia Hypersomnia, unspecified documented in this encounter [facility] note* Diagnosis BUCK (obstructive sleep [...] Other abnormal glucose documented in this encounter [facility] Discharge instructions* Attachments The following attachments cannot be sent through Care Everywhere. * Diabetic Foot Ulcer (Cypriot) [facility] N[facility]* Other (Routine) - ClosedSpecialtyDiagnoses / ProceduresReferred By Contact Referred To ContactRadiology Diagnoses Encounter for screening mammogram for malignant neoplasm of breast Procedures [facility] BRIAN DIGITAL SCREEN BILATERAL Back, [place] [address] Phone: tel: fax: Referral IDStatusReasonStart DateExpiration DateVisits RequestedVisits [id number]/27/20254/ [facility] Narrative* Imaging (Emergency) - Pending ReviewSpecialtyDiagnoses / ProceduresReferred By ContactReferred To ContactRadiology Diagnoses Pain in right foot Procedures MRI FOOT RIGHT W WO CONTRAST Robbin Sánchez, DPMónica [address] [facility] [address], [place] [address] Phone: tel: fax: Referral IDStatusReasonStart DateExpiration DateVisits RequestedVisits [id number] Review [facility] Summary Purpose Family [...] PMFull Code03/05/2017 10:05 AM03/05/2017 12:56 PMDate ActivatedDate FmnqkowswkpYcjkifln93/11/2018 4:17 PM08/25/2018 8:55 PMDate ActivatedDate InactivatedComments03/19/2017 1:37 PM03/19/2017 4:32 PMDate ActivatedDate InactivatedComments03/19/2017 10:57 AM03/19/2017 1:37 PMDate ActivatedDate InactivatedComments03/05/2017 12:56 PM03/05/2017 3:55 PMDate Activated Date InactivatedComments03/05/2017 10:05 AM03/05/2017 12:56 PMDate ActivatedDate [id number]/11/2018 4:17 PM08/25/2018 8:55 PMDate ActivatedDate InactivatedComments03/19/2017 1:37 [...] Everywhere. * Back Care Basics: General Info (Cypriot) * Back: Preventing Injuries (Cypriot) documented in this encounter Reason for Referral StatusReasonSpecialtyDiagnoses / ProceduresReferred By ContactReferred To ContactClosedRadiology Diagnoses Brachial neuritis Peripheral nerve disorder Spasm of muscle Procedures MR Cervical Spine Without Contrast Trace Casas MD [address] [place] [address] SpecialtyDiagnoses / ProceduresReferred By ContactReferred To ContactRadiology Diagnoses Neck mass Procedures US HEAD NECK SOFT TISSUE THYROID Felipe Adam MD [address] [place] [address] Referral IDStatusReasonStart DateExpiration DateVisits RequestedVisits [id number]/23/20228/[id number] / Procedures Referred By ContactReferred To ContactRadiology Diagnoses Thyroid nodule Procedures US THYROID Back, MD [address] [place] [address] Referral IDStatusDino DateExpiration DateVisits RequestedVisits [id number] Chief Complaint and Reason for Visit Chief Complaint M54.16 M79.10 M79.60 9 R20.9 Chief Complaint Unknown Additional Source Comments INFORMATION SOURCE (unrecogn ized section and content) DATE CREATED AUTHOR 03/30/2018 [facility] DATE CREATED AUTHOR AUTHOR'S ORGANIZ ATION 03/30/2018 [facility] DATE CREATED AUTHOR AUTHOR'S ORGANIZ ATION 09/15/2018 [facility] DATE CREATED AUTHOR AUTHOR'S ORGANIZ ATION 09/23/2018 [facility] DATE CREATED AUTHOR AUTHOR'S ORGANIZ ATION 09/26/2018 [facility] DATE CREATED AUTHOR AUTHOR'S ORGANIZ ATION 12/10/2018 [facility] DATE CREATED AUTHOR AUTHOR'S ORGANIZ ATION 12/18/2018 [facility] DATE CREATED AUTHOR AUTHOR'S ORGANIZ ATION 02/11/[address] [facility] DATE CREATED AUTHOR AUTHOR'S ORGANIZ ATION 11/30/2021 DATE CREATED AUTHOR AUTHOR'S ORGANIZ ATION 05/01/2022 [facility] DATE CREATED AUTHOR AUTHOR'S ORGANIZ ATION 01/12/2023 [facility] DATE CREATED AUTHOR AUTHOR'S ORGANIZ ATION 02/15/2023 [facility] DATE CREATED AUTHOR AUTHOR'S ORGANIZ ATION 04/04/2023 [facility] DATE CREATED AUTHOR AUTHOR'S ORGANIZ ATION 02/20/2024 [facility] DATE CREATED AUTHOR AUTHOR'S ORGANIZ ATION 10/17/2024 [facility] DATE CREATED AUTHOR AUTHOR'S ORGANIZ ATION 02/14/2025 [facility] DATE CREATED AUTHOR AUTHOR'S ORGANIZ ATION 2025 [facility] DATE CREATED AUTHOR AUTHOR'S ORGANIZ ATION 08/04/2025 [facility] Reason for Visit (unrecogniz ed section and content) ReasonCommentsSleep ApneaSpecialtyDiagnoses / ProceduresReferred By Contact Referred To ContactNeurology Diagnoses BUCK on CPAP Procedures OR OFFICE/OUTPATIENT NEW HIGH MDM 60 MINUTES Fozia Meng, MANAGER MAC [address], [facility] [address] [place] [address] Phone: tel: fax: Lynn Block MD [address] [facility] [address] [place] [address] Phone: tel: fax: Referral IDStatusReasonStart DateExpiration DateVisits RequestedVisits [id number] Specialty Services Required /[id number]wxtit / ProceduresReferred By ContactReferred To ContactClosedRadiology Diagnoses Brachial neuritis Peripheral nerve disorder Spasm of muscle Procedures MR Cervical Spine Without Contrast Trace Casas MD [address] [place] [address] SpecialtyDiagnoses / ProceduresReferred By ContactReferred To Contact Occupational Therapy Diagnoses Carpal tunnel syndrome Carpal Tunnel Syndrome Procedures Eval and treat Keenan Lozano MD [address] [facility] [address] [place] [address] [facility] [address] [place] [address] Referral IDStatusReasonStben DateExpiration DateVisits RequestedVisits [id number]/17/20223/[id number] / Procedures Referred By ContactReferred To ContactPhysical Therapy Diagnoses Radiculopathy, lumbar region Lumbar Radiculopathy Procedures Eval and treat Janel Allen, BOOKKEEPING CLERK - CHAMFERING MACHINE OPERATOR [address] [place] [address] [facility] [address] [place] [id number] Referral IDStatusReasonStart DateExpiration DateVisits RequestedVisits [id number] / Procedures Referred By ContactReferred To ContactRadiology Diagnoses Neck mass Procedures US HEAD NECK SOFT TISSUE THYROID Felipe Adam MD [address] [place] [address] Referral IDStatusReasonStart DateExpiration DateVisits RequestedVisits [id number]/23/20228/[id number] / Procedures Referred By ContactReferred To ContactRadiology Diagnoses Pain of foot, unspecified laterality Closed nondisplaced fracture of lateral cuneiform of left foot, initial encounter Procedures MRI FOOT LEFT W WO CONTRAST MRI FOOT LEFT W WO CONTRAST Robbin Sánchez, DPM [address] [facility], [address] [place] [address] Referral IDStatusMerlyncoxhealthStart DateExpiration DateVisits RequestedVisits [id number]/16/[id number] Class SpecialtyDiagnoses / ProceduresReferred By ContactReferred To ContactDiabetes Services Diagnoses Pre-diabetes Felipe Adam MD [address] [phone] [facility] [address] [place] [phone] Referral IDStatusReasonStart DateExpiration DateVisits RequestedVisits [id number] Specialty Services Required /[id number] / ProceduresReferred By ContactReferred To ContactDiabetes Services Diagnoses Pre-diabetes Felipe Adam MD [address] [phone] [facility] [address] [place] [address] ReasonCommentsOtherLeft foot charcot on-going since 06/2022. New x-rays today. 2nd of opinion.SpecialtyDiagnoses / ProceduresReferred By ContactReferred To ContactRadiology Diagnoses Thyroid nodule Procedures US THYROID Felipe Adam MD [address] [phone] Referral IDStatusReasonStart DateExpiration DateVisits RequestedVisits [id number] [id number] DateCommentsMed Cllhet8410/05/2024ReasonCommentsNew PatientFNA - THYROID NODULESpecialtyDiagnoses / ProceduresReferred By ContactReferred To ContactOtolaryngology Diagnoses Thyroid nodule Felipe Adam MD [address] [place] [address] Phone: tel: fax: Dimas Adair MD [address] [place] [address] Phone: tel: fax: Referral IDStatusReasonStart DateExpiration DateVisits RequestedVisits [id number] [id number] UlcerNiranjan presents to ER with a skin [...] DateEnd Date Felipe Adam MD [address] [phone] PCP - GeneralInternal Medicine11/14/11Team MemberRelationshipSpecialtyStart Date End Date Back, MD Felipe [address] [id number] PCP - GeneralInternal Medicine11/14/11Team MemberRelationshipSpecialtyStart Date End Date Back, MD Felipe [address] [place] [address] PCP - GeneralInternal Medicine11/14/11Team MemberRelationshipSpecialtyStart Date End Date Back, MD Felipe [address] [place] [address] PCP - GeneralInternal Medicine11/14/11Team MemberRelationshipSpecialtyStart Date End Date Back, MD Felipe [address] [place] [address] PCP - GeneralInternal Medicine11/14/11Team MemberRelationshipSpecialtyStart Date End Date Back, MD Felipe [address] [place] [address] PCP - GeneralInternal Medicine11/14/11Team MemberRelationshipSpecialtyStart Date End Date Back, MD Felipe [address] [phone] PCP - GeneralInternal Medicine11/14/11 Team Status: Inactive Member Role Status Dates NON STAFF Primary Care Provider Active Trace Casas [facility] ProviderActive Team Status: Active Member Role Status Dates NON STAFF Primary Care Provider Active Team MemberRelationshipSpecialtyStart DateEnd Date Back, MD Felipe [address] [place] [address] PCP - GeneralInternal Medicine11/14/11Team MemberRelationshipSpecialtyStart Date End Date Back, MD Felipe [address] [phone] PCP - GeneralInternal Medicine11/14/11Team MemberRelationshipSpecialtyStart Date End Date Back, MD Felipe [address] [id number] PCP - GeneralInternal Medicine11/14/11Team MemberRelationshipSpecialtyStart Date End Date Back, MD Felipe [address] [id number] PCP - GeneralInternal Medicine11/14/11Team MemberRelationshipSpecialtyStart Date End Date Back, MD Felipe [address] [place] [address] PCP - GeneralInternal Medicine11/14/11Team MemberRelationshipSpecialtyStart Date End Date Back, MD Felipe [address] [id number] PCP - GeneralInternal Medicine11/14/11Team MemberRelationshipSpecialtyStart Date End Date Back, MD Felipe [address] [phone] PCP - GeneralInternal Medicine11/14/11Team MemberRelationshipSpecialtyStart Date End Date Back, MD Felipe [address] [phone] PCP - GeneralInternal Medicine11/14/11Team MemberRelationshipSpecialtyStart Date End Date Back, MD Felipe [address] [phone] PCP - GeneralInternal Medicine03/26/15Team MemberRelationshipSpecialtyStart Date End Date Back, MD Felipe [address] [phone] PCP - GeneralInternal Medicine11/14/11 Team Status: Inactive Member Role Status Dates Frances Harris DPM MS Attending Provider Active Start: February 15, 2024 End: February 15, 2024Team MemberRelationshipSpecialtyStart DateEnd Date Back, MD [facility] PCP - GeneralInternal Medicine11/14/11Team MemberRelationshipSpecialtyStart Date End Date Back, MD Felipe [address] [phone] PCP - GeneralInternal Medicine11/14/11Te MemberRelationshipSpecialtyStart Date End Date Back, MD Felipe [address] [phone] PCP - GeneralInternal Medicine03/26/15Team MemberRelationshipSpecialtyStart Date End Date Back, MD Felipe [address] [phone] PCP - GeneralInternal Medicine03/26/15Team MemberRelationshipSpecialtyStart Date End Date Back, MD Felipe [address] [facility], [facility] PCP - GeneralInternal Medicine11/14/11Team MemberRelationshipSpecialtyStart Date End Date Back, MD Alcides [address] [phone] PCP - GeneralFamily Medicine12/08/24Team MemberRelationshipSpecialtyStart DateEnd Date Back, MD Alcides 64 [facility], [facility] PCP - GeneralFamily Medicine12/08/24Team MemberRelationshipSpecialtyStart DateEnd Date Back, MD Felipe [address] [facility], [place] [address] PCP - GeneralInternal Medicine2Team MemberRelationshipSpecialtyStart Date End Date Back, MD Alcides [address] [facility], [place] [address] PCP - GeneralFamily Medicine12/08/24Team MemberRelationshipSpecialtyStart DateEnd Date Back, MD Felipe [address] [facility], [place] [address] PCP - GeneralInternal Medicine11/14/11Team MemberRelationshipSpecialtyStart Date End Date Back, MD Alcides [address] [facility], [place] [address] PCP - GeneralFamily Medicine12/08/24Team MemberRelationshipSpecialtyStart DateEnd Date Back, MD Alcides [address] [facility], [place] [address] PCP - GeneralFamily Medicine12/08/24Team MemberRelationshipSpecialtyStart DateEnd Date Back, MD Alcides [address] [place] [address] PCP - GeneralFamily Medicine12/08/24Team MemberRelationshipSpecialtyStart DateEnd Date Back, MD Alcides [address] [place] [address] PCP - GeneralFamily Medicine12/08/24Team MemberRelationshipSpecialtyStart DateEnd Date Back, MD Felipe [address] [facility], [place] [address] PCP - GeneralInternal Medicine11/14/11Team MemberRelationshipSpecialtyStart Date End Date Back, MD Felipe 64 . [facility], [place] [address] PCP - GeneralInternal Medicine11/14/11Team MemberRelationshipSpecialtyStart Date End Date Back, MD Alcides [address] [facility], [place] [address] PCP - GeneralFamily Medicine12/08/24Team MemberRelationshipSpecialtyStart DateEnd Date Back, MD Felipe 64 . [facility], [place] [address] PCP - GeneralInternal Medicine11/14/11Team MemberRelationshipSpecialtyStart Date End Date Back, MD Alcides [address] [place] [address] PCP - GeneralFamily Medicine12/08/24Team MemberRelationshipSpecialtyStart DateEnd Date Back, MD Alcides [address] [place] [address] PCP - GeneralFamily Medicine12/08/24Team MemberRelationshipSpecialtyStart DateEnd Date Back, MD Felipe [address] [place] [address] PCP - GeneralInternal Medicine11/14/11Team MemberRelationshipSpecialtyStart Date End Date Alcides Adam MD [address] [place] [address] PCP - GeneralFamily Medicine12/08/24 Goals (unrecognized section [...] BE BASED ON THE PRIMARY CLINICAL RECORDS. [employer] [facility]. provides no warranty or guarantee of the accuracy or completeness of information in this document.
== END 2025-08-29 14:53 | disposition home or self-care (01) ==
LOC: WC 14:52
PROVIDERS: PCP Internal Medicine; Visit Provider Physician Assistant
DX: E11.621 Type 2 diabetes mellitus with foot ulcer (principal); L97.422 Non-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 with fat layer exposed; L97.515 Non-pressure chronic ulcer of other part of right foot with muscle involvement without evidence of necrosis
CPT/HCPCS: 11043

== ENCOUNTER 2025-09-11 14:09 | Outpatient (OUT) | payer OTHER, SELFPAY | END 2025-09-11 14:10 | disposition home or self-care (01) | LOC: WC 14:09 | PROVIDERS: PCP Internal Medicine; Visit Provider Podiatrist Foot & Ankle Surgery | DX: E11.621 Type 2 diabetes mellitus with foot ulcer (principal); L97.422 Non-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 with fat layer exposed; L97.515 Non-pressure chronic ulcer of other part of right foot with muscle involvement without evidence of necrosis; S90.822A Blister (nonthermal), left foot, initial encounter; S80.822A Blister (nonthermal), left lower leg, initial encounter | CPT/HCPCS: G0463 ==

== ENCOUNTER 2025-10-03 10:37 | Outpatient (OUT) | payer OTHER, SELFPAY ==
--- OUTSIDE RECORDS SUMMARY | 2024-04-14 06:20 | XMS_ITS ---
Author Organization The [facility] in [place] Address [address] [place] [address] Care Team Providers Care Interventionist Name Role Phone None, Unknown or Primary Care Provider Unavailab Roxanne Rodríguez Unavailable [phone] Encounters Encounter Location Date Provider Diagnosis [facility] (PODIATRY) [address] [place] [address] [place] [address] 04/14/2024 Roxanne Segura Plan Of Treatment No Information Progress Notes * Celina GASPAR MDOB: [birth year] (45 yo F)Acc No.[id number]:04/14/2024 UNLOCKED PROGRESS NOTE Nurse Visit Patient: Rubén Celina YAÑEZ :?SABINA MckeonCDOB:1980???Age:43 Y ???Sex:FemaleDate:4Phone:[phone]:[address] [place] [address]Pcp:Unknown or None Subjective: * Chief Complaints: * * Medical History: Objective: * Vitals: Assessment: Plan: * Treatment: * * Electronic signature of Roxanne Segura PA-C on 10/03/2025 at 08:46 AM ESTSign off status: PendingVisit Status:?CANC (Cancelled) * Provider: Brady Segura PA-C Date: 0 04/14/2024 Generated for Printing/Faxing/eTransmitting on:?10/03/2025 08:46 AM EST
--- OUTSIDE RECORDS SUMMARY | 2025-09-21 12:30 | XMS_ITS | Encounter Summary ---
Author Organization [facility] Address [address] [place] [address] Care Team Providers Care Supervisor Pipe Manufacture Name Role Phone Alcides Adam MD Primary Care Provider Reason for Visit * Imaging (Routine) - ClosedSpecialtyDiagnoses / ProceduresReferred By Contact Referred To ContactRadiology Diagnoses Idiopathic progressive polyneuropathy Chronic migraine without aura, not intractable, without status migrainosus Paresthesia Procedures MR brain w and wo contrast routine Jennie Barajas, DOCK BUILDER-GAS OPERATIONS SUPERINTENDENT [address] [facility] [place] [address] Phone: tel: fax: [facility] [address] [place] [address] Phone: tel: fax: Referral IDStatusReasonStart DateExpiration DateVisits RequestedVisits [id number]/19/20255/ Encounter Details DateTypeDepartmentCare Team (Latest Contact Info)Ycyueinfbzz19/18/2025 12:30 PM ESTAncillary Procedure [facility] [address] [place] [address] Idiopathic progressive polyneuropathy; Chronic migraine without aura, not intractable, without status migrainosus; Paresthesia Social History Tobacco UseTypesPacks/DayYears UsedDateSmoking Tobacco: NeverSmokeless Tobacco: NeverAlcohol UseStandard Drinks/WeekCommentsNot Currently0 (1 standard drink = 0.6 oz pure alcohol)1-2 times a yearCommentsUnknownSex and Gender InformationValueDate RecordedSex Assigned at BirthNot on fileLegal SexFemale 12/17/2022 7:36 PM EDTGender IdentityNot on fileSexual OrientationNot on file documented as of this encounter Plan of Treatment Not on file documented as of this encounter Procedures Procedure NamePriorityDate/TimeAssociated DiagnosisCommentsMR BRAIN W AND WO CONTRAST (ROUTINE)Nxwwews9909/21/2025 1:35 PM EST Idiopathic progressive polyneuropathy Chronic migraine without aura, not intractable, without status migrainosus Paresthesia documented in this encounter Results * MR brain w and wo contrast routine (09/21/2025 1:35 PM EST)Anatomical Region LateralityModalityBrainMagnetic ResonanceSpecimen (Source)Anatomical Location / LateralityCollection Method / VolumeCollection TimeReceived Time09/22/2025 3:11 PM EST Impressions 09/22/2025 3:14 PM EST No acute intracranial process, enhancing mass, or pathologic enhancement. Nonspecific white matter findings most likely representing sequela of migraines or early chronic small vessel ischemic changes in a patient of this age. ELECTRONICALLY SIGNED BY: DO Marleen Fournier 09/22/2025 3:14 PM EST EXAM: MR BRAIN W AND WO CONTRAST (ROUTINE) History: Idiopathic progressive neuropathy. Migraines. Technique: Multiplanar multisequence MRI of the brain was performed without and with contrast. Comparison: None available Findings: A few tiny scattered foci of hyperintense T2/FLAIR signal within the bilateral supratentorial whitematter are nonspecific and likely sequela of migraine headaches or early chronic small vessel ischemic changes in a patient of this age. These would be atypical in appearance for multiple sclerosis.. Brain volume is age-appropriate. Ventricular morphology is within normal limits. No acute hemorrhage, enhancing mass or pathologic enhancement, mass effect, midline shift, or abnormal extra-axial fluid collection. ??Midline structures are within normal limits. The posterior fossa is within normal limits. There is no diffusion restriction. No susceptibility artifact is identified on the gradient echo sequence. ?? The major intracranial vascular flow voids are maintained. Cranial nerve 7/8 complexes appear grossly unremarkable. ??The visualized paranasal sinuses and bilateral mastoid air cells are clear. Procedure Note Gregorio Davila DO - 09/22/2025 EXAM: MR BRAIN W AND WO CONTRAST (ROUTINE) History: Idiopathic progressive neuropathy. Migraines. Technique: Multiplanar multisequence MRI of the brain was performedwithout and with contrast. Comparison: None available Findings: A few tiny scattered foci of hyperintense T2/FLAIR signal within thebilateral supratentorial white matter are nonspecific and likely sequelaof migraine headaches or early chronic small vessel ischemic changes in apatient of this age. These would be atypical in appearance for multiplesclerosis.. Brain volume is age-appropriate. Ventricular morphology is within normallimits. No acute hemorrhage, enhancing mass or pathologic enhancement,mass effect, midline shift, or abnormal extra-axial fluid collection.Midline structures are within normal limits. The posterior fossa is withinnormal limits. There is no diffusion restriction. No susceptibility artifact isidentified on the gradient echo sequence. The major intracranial vascular flow voids are maintained. Cranial nerve7/8 complexes appear grossly unremarkable. The visualized paranasalsinuses and bilateral mastoid air cells are clear. IMPRESSION: No acute intracranial process, enhancing mass, or pathologicenhancement. Nonspecific white matter findings most likely representing sequela ofmigraines or early chronic small vessel ischemic changes in a patient ofthis age. ELECTRONICALLY SIGNED BY: Gregorio Davila DO Authorizing ProviderResult TypeResult StatusJessica [facility] MRI PROCEDURESFinal Result documented in this encounter Visit Diagnoses Diagnosis Idiopathic progressive polyneuropathy Chronic migraine without aura, not intractable, without status migrainosus Paresthesia Disturbance of skin sensation documented in this encounter Administered Medications Medication OrderMAR ActionAction DateDoseRateSite Gadopiclenol solution Intravenous, Once in imaging, Starting on Jeana 09/21/25 at 1321, For 1 dose Indications:Idiopathic progressive polyneuropathy,Chronic migraine without aura, not intractable, without status migrainosus,SyhjcwazwueJrqnn19/18/2025 1:35 PM ESTdocumented in this encounter Care Teams Team MemberRelationshipSpecialtyStart DateEnd Date Back, MD Alcides [address] [place] [address] PCP - GeneralFamily Medicine12/08/24documented as of this encounter
--- OUTSIDE RECORDS SUMMARY | 2025-10-03 10:40 | XMS_ITS | Clinical Summary ---
Author Organization [facility] Address [address] [place] [address] Care Team Providers Care Clothes Drier Assembler Name Role Phone Felipe Adam MD Primary Care Provider [phone] Allergies Active AllergyReactionsCriticalityNoted DateCommentsChlorhexidineRashLow 03/03/2023TopiramateOther (See Comments)10/29/2023 [...] InformationValueDate RecordedSex Assigned at BirthNot on fileLegal YmwFepwvs61/12/2014 10:22 AM EDTGender IabquzaiDdhasj49/07/2025 9:28 AM ESTSexual AaztxzvrqieFvjepgdi84/07/2025 9:28 AM EST Last Filed Vital Signs Vital SignReadingTime TakenCommentsBlood Wrsuvozf169/8703/03/2023 2:44 PM EDT Yevbm487103/03/2023 2:44 PM UCROqopjfrtjnr07.8 ??C (98.3 ??F)10/11/2024 9:42 AM ESTRespiratory Czgt906301/06/2023 5:48 PM EDTOxygen Izolrslysz85%01/06/2023 4:22 PM EDTInhaled Oxygen Concentration--Joshod53.8 kg (209 lb)10/11/2024 9:42 AM EST Evqcet315.5 cm (5' 2 )10/11/2024 9:42 AM ESTBody Mass Index38.23010/11/2024 9:42 AM EST Plan of Treatment DateTypeDepartmentCare Team (Latest Contact Info)Pkoqsfevyxj24/08/2026 10:[address] [facility] [address] [facility] [place] [address] Dimas Adair MD [address] [place] [address] Health MaintenanceDue DateLast DoneCommentsCT Ocitmwvvogeo1979Fecal DNA 1979Fecal occult blood test (FOBT,FIT)1979Flexible sigmoidoscopy 1979Depression Screening/Follow-Up (PHQ-2/9)1991Hepatitis C Gsmazlgax02/25/1997Hepatitis B Vaccines (1 of 3 - 19+ 3-dose series)1998 Kcwopkrmt42/25/2019Pap SmearCervical Cancer Screening 03/20/2022HPV/Xcihmb06Wellness Visit/05/2022 Tetanus/Diphtheria/Pertussis (2 - Td or Tdap)COVID-19 Vaccine ( - season)2025Influenza Vaccine (#1)2025 Afabnyqsyhz90/07/Colorectal Cancer Screening/Jaqsjeghcs95/07/2028 Zoster Vaccines (1 of 2)2029RSV Vaccines (1 - 1-dose 75+ series)2054 HIV EjcksscujHcvzndvgd10/16/2018HIB VaccinesAged OutNo longer eligible based on patient's age to complete this topicHPV VaccinesAged OutNo longer eligible based on patient's age to complete this topicHepatitis A VaccinesAged OutNo longer eligible based on patient's age to complete this topicIPV VaccinesAged OutNo longer eligible based on patient's age to complete this topicMeningococcal ACWY VaccineAged OutNo longer eligible based on patient's age to complete this topic Meningococcal B VaccineAged OutNo longer eligible based on patient's age to complete this topicPneumococcal VaccineAged OutNo longer eligible based on patient's age to complete this topicRotavirus VaccinesAged OutNo longer eligible based on patient's age to complete this topic Procedures Procedure NamePriorityDate/TimeAssociated DiagnosisCommentsHIV 1/2 SCREEN (4TH GENERATION)Pybftvl1010/20/2017 5:25 PM EST Encounter for general adult medical examination without abnormal findings THINPREP PAP VIWJSBpfiiim91/16/2017 12:00 AM EDT HIGH RISK HPV WITH GENOTYPE 16,07Igwwhdu41/16/2017 12:00 AM EDT Encounter for general adult medical examination without abnormal findings from Last 3 Months or Most Recently Relevant to Health Maintenance Results * HIV Antibody (HIV1/HIV2) (10/20/2017 5:25 PM EST)ComponentValueRef RangeTest MethodAnalysis TimePerformed AtPathologist SignatureHIV 1-2 ScreenNegative Qigczpnz88/17/2018 9:47 AM [facility] LABSpecimen (Source)Anatomical Location / LateralityCollection Method / VolumeCollection TimeReceived TimeBloodBLOOD SPECIMEN / Dkrytos1410/20/2017 5:25 PM EST10/20/2017 10:58 PM EST Narrative [facility] - 10/21/2017 9:47 AM EST Test performed using [employer] Immunodiagnostic system. Authorizing ProviderResult TypeResult StatusMichael Maico MATHEWS BLOOD ORDERABLESFinal ResultPerforming OrganizationAddressCity/State/ZIP CodePhone Number [facility] [address] [place] [address] * High Risk HPV with Genotype 16,18 (03/20/2017 12:00 AM EDT)ComponentValueRef RangeTest MethodAnalysis TimePerformed AtPathologist SignatureHPV 16Negative Qvgosbid39/28/2017 2:01 PM [facility] LABHPV 18Negative Rnmpxxgz45/28/2017 2:01 PM [facility] LABHPV, Other HR TwankNcnhwgzkDofdhmmm00/28/2017 2:01 PM [facility] Specimen (Source)Anatomical Location / LateralityCollection Method / Volume Collection TimeReceived TimePap, Liquid BasedCERVIX UTERI STRUCTURE / Unknown 9:32 PM EDT Narrative [facility] - 04/01/2017 2:01 PM EDT Assay performed using [employer] 4800 system utilizing Real-Time PCR to amplify target HPV DNA. This system specifically identifies HPV16 and HPV18 while concurrently detecting the other twelve high risk types (31,33,35,39,45,51,52,56,58,59,66,68). Authorizing ProviderResult TypeResult StatusShanice Frenchscarlet AVALOSBODY FLUIDS AND STOOLS ORDERABLESFinal ResultPerforming OrganizationAddress City/State/ZIP CodePhone Number [facility] [address] [place] [address] * Thinprep Pap Smear (03/20/2017 12:00 AM [...] HPV DNA. This system specifically identifies HPV16 avdCPM80 while concurrently detecting the other twelve high risk types(31,33,35,39,45,51,52,56,58,59,66,68). Completed by on 2017-04-02 Electronically Signed By Arielle NEFF (ASCP) , Repair Manager (Case signed 03/30/2017) The Papanicolaou smear is a screening tool, and like any screen, has an inherent false negative rate. ??Interpretation of results should be made in the context of patient history and clinical findings. Authorizing ProviderResult TypeResult StatusLynnemalcom Pinky Richard DO PATHOLOGY/CYTOLOGY ORDERABLESFinal ResultPerforming OrganizationAddress City/State/ZIP CodePhone Number [place] from Last 3 Months or Most Recently Relevant to Health Maintenance Insurance * Guarantor: Celina Gaspar TypeRelation to PatientDate of BirthPhone Billing AddressPersonal/MmozjeQwmn1980 [phone] (Home) [address] [place] [address], [place] [address] Care Teams Team MemberRelationshipSpecialtyStart DateEnd Date Back, MD Felipe [address] [place] [address] PCP - GeneralInternal Medicine03/26/15
--- OUTSIDE RECORDS SUMMARY | 2025-10-03 10:40 | XMS_ITS | Clinical Summary ---
Author Organization [facility] Healthcare Address [address] [place] [address] Care Team Providers Care Materials Planning Analyst Name Role Phone Alcides Adam MD Primary Care Provider [phone] Allergies Active AllergyReactionsCriticalityNoted DateCommentsChlorhexidineRashLow 03/03/20238053Gegqctsxcn85/25/2024 Made her feel overly thirsty and caused bad smell and taste. Medications MedicationSigDispense QuantityRefillsLast FilledStart DateEnd DateStatus sertraline (Zoloft) 100 MG tablet 02/25/2023ctive gemfibrozil (Lopid) 600 MG tablet 02/12/2023ctive fluticasone (Flonase) 50 MCG/ACT nasal spray Administer 2 sprays into each nostril Daily09/22/2022ctive cholecalciferol (Vitamin D-3) 50 MCG (1999 UT) tablet Take by mouthActive cetirizine (ZyrTEC) 10 [...] the morning and 20 mg before bedtime.07/13/2023ctive Rimegepant Sulfate (Nurtec) 75 MG tablet dispersible [...] mg) by mouth at bedtime 270 capsule /6Active rOPINIRole (Requip) 1 MG tablet Indications:Restless Leg SyndromeTake 1 tablet (1 mg) by mouth in the morning and 1 tablet (1 mg) in the evening and 1 tablet (1 mg)before bedtime. 270 tablet /6Active ALPRAZolam (Xanax) 0.25 MG tablet Indications:ClaustrophobiaTake 1 [...] 5Active lisdexamfetamine (Vyvanse) 40 MG capsule 5Active montelukast (Singulair) 10 MG tablet Indications:Idiopathic progressive polyneuropathy,Non-seasonal allergic rhinitis due to pollenTAKE 1 TABLET BY MOUTH AT BEDTIME 90 tablet 5Active montelukast (Singulair) 10 MG tablet Indications:Idiopathic progressive polyneuropathy,Non-seasonal allergic rhinitis due to pollenTake 1 tablet (10 mg) by mouth at bedtime 90 tablet 2/02/2025DiscontinuedHospital, Clinic, or Other Facility Administered MedicationOrdered DoseRouteFrequencyStart DateEnd DateStatus Gadopiclenol solution Indications:Idiopathic progressive polyneuropathy,Chronic migraine without aura, not intractable, without status migrainosus,ParesthesiaIVOnce in imaging 5111/22/2024Ended Active Problems ProblemNoted DateDiagnosed KpabHcwwrekqzbzoxi81/04/2025 Assessment & Plan (03/14/2025 5:41 PM EDT): Add alprazolam 0.25 ahs. Orders: ALPRAZolam (Xanax) 0.25 MG tablet; Take 1 tab 30-45 min before PAP therapy nightly Assessment & Plan (12/06/2024 1:26 PM EST): Once machine is received, pt to call for Rx alprazolam 0.25 hs for better tolerance of mask on face. Trochanteric bursitis of both hips08/24/2023olyneuropathy due to type 2 diabetes kqqigkww39/16/2023Obstructive sleep apnea05/20/2023Hypersomnia 05/20/2023 Assessment & Plan (03/14/2025 5:41 PM EDT): Discussed modafinil. May start 100 qam if/when desired., but first optimize PAP use. Cervical paraspinal muscle spasm05/20/2023MRSA (methicillin resistant Staphylococcus aureus) gwdfzfkibc68/15/2023ain in left foot05/19/2023cute rrsrtsnosir67/04/2023ilateral carpal tunnel pwfhaojd46/04/2023arpal tunnel syndrome of left wrist03/08/2023ervical disc escpcxuisuwp71/04/2023harcot's joint, left ankle and foot03/08/2023hronic migraine without aura, not intractable, without status /04/2023losed fracture of metatarsal bone03/08/2023losed nondisplaced fracture of second metatarsal bone of left foot03/08/2023losed fracture of navicular bone of foot03/08/2023losed nondisplaced fracture of intermediate cuneiform of left foot03/08/2023 Contracture, left ankle03/08/2023iscitis of thoracic vtyucs1503/08/2023 Disturbance of skin qcrnleffh04/04/2023Elevated C-reactive protein (CRP) 03/08/2023Idiopathic progressive tarjcbvgefjqja66/04/5502Deoksclzzhd54/04/2023 Infection of thoracic spine03/08/20230470Vdfhxubw41/04/2023Limb pain03/08/2023Lumbar tsawjssbliwed29/04/2023Lumbosacral spondylosis without /04/2023 Tcypyfed80/04/7449Kztzetb93/04/2023Hereditary and idiopathic neuropathy, pzfgzrqionj52/04/2023rimary osteoarthritis, unspecified ankle and foot 03/08/2023Tarsal tunnel bjximqww23/04/2023Type 2 diabetes mellitus with diabetic bxzcuadhpbdeui08/04/2023re-ytpgnkuz67/26/2010Sjsyla00/25/2022Thyroid nodule 2Restless legs05/13/2021OSA (obstructive sleep apnea)05/11/2020 Assessment [...] Orders: Ambulatory referral to Neurology Epidural abscess ([facility])08/20/2018Septic pmqkeqzmm84/16/2018Abdominal pain 05/04/2018Pure jywjurenjxzggjgqq42/31/3055Snjrpbyjyvfyfx88/31/2018Neoplasm of uncertain behavior of skin02/05/2018Peripheral /27/2018Basal cell carcinoma of skin of face09/16/2017 Overview (03/08/2023): Added automatically from request for surgery [id number] Overview: Added automatically from request for surgery [id number] Mixed zgcywlbxlwwlev59/15/2017Carpal tunnel syndrome of right wrist03/05/2017 Vitamin D gyvbwdrkpd07/08/2014GERD (gastroesophageal reflux disease)09/08/2014 Chronic glomerulonephritis with pathological lesion in bfjjmy4406/09/2014Chronic renal impairment, stage 3 (moderate)06/09/2014Thoracic degenerative disc disease 05/09/2014Seasonal tamhthdta49/11/2014CRI (chronic renal insufficiency) 10/25/2013Depression with xhmpqoo3206/24/20130129Xticncbbvowgb06/20/2013Fatigue 07/20/2012 Encounters DateTypeDepartmentCare XuvdMdgokepzblw09/18/2025 12:30 PM ESTAncillary Procedure [facility] [address] [place] [address] Idiopathic progressive polyneuropathy; Chronic migraine without aura, not intractable, without status migrainosus; Wkreskuvezw14/18/5714Dccnnt80/05/2025[facility] [address] [facility] [address] [place] [address] Janel Allen, TRANSACTION PROCESSOR Idiopathic progressive polyneuropathy (Primary Dx); Non-seasonal allergic rhinitis due to tzohrm7108/24/2025Telephone formerly [facility] [address] [place] [id number] Mague Arauz RT. R 08/23/2025 1:00 PM ESTOffice Visit [facility] [address] [facility] [address] [place] [address] Jennei Barajas, TRANSPORTATION WORKER-GREETL Idiopathic progressive polyneuropathy (Primary Dx); Chronic migraine without aura, not intractable, without status migrainosus; Paresthesia; Bilateral occipital neuralgia; Occipital neuralgia of right side; Stage 3a chronic kidney disease (CMS-HCC); Hypersomnia with sleep apnea; Major depressive disorder, recurrent, mild08/23/2025Telephone [facility] [address] [place] [address] Gauri Jay MA 08/23/2025amboo flowsheet [facility] [address] [place] [address] Jennie Barajas, TRANSPORTATION WORKER-PATHOLOGY LABORATORY AIDES TEACHER 08/23/20251769Xjpscq26/25/2025Refill [facility] [address] [place] [address] Janel Allen, ONUR Idiopathic progressive polyneuropathy; [...] ValueDate RecordedSex Assigned at BirthNot on fileLegal AeqCgguvp84/15/2023 7:36 PM EDTGender IdentityNot on fileSexual OrientationNot on file Last Filed Vital Signs Vital SignReadingTime TakenCommentsBlood Hikmqdmi828/8211 1:11 PM EST Cfbjy45602/ 12:32 PM EDTTemperature--Respiratory Ltma273010/23/2024 1:11 PM ESTOxygen Qcytbqywei33%08/23/2025 1:11 PM ESTInhaled Oxygen Concentration-- Cvausz43.3 kg (210 lb)08/23/2025 1:11 PM JPCKesrhj767.5 cm (5' 2 )05/24/2025 11:47 AM EDTBody Mass Index38.41005/24/2025 11:47 AM EDT Plan of Treatment Not on file Procedures Procedure NamePriorityDate/TimeAssociated DiagnosisCommentsMR BRAIN W AND WO CONTRAST (ROUTINE)Rcbbgav7209/21/2025 1:35 PM EST Idiopathic progressive polyneuropathy Chronic migraine without aura, not intractable, without status migrainosus Paresthesia from Last 3 Months Results * MR brain w and wo [...] patient of this age. ELECTRONICALLY SIGNED BY: Gregorio Davila DO Narrative 09/22/2025 3:14 PM EST EXAM: MR BRAIN [...] Gregorio Davila DO Authorizing ProviderResult TypeResult StatusJessica Wharton TRANSPORTATION WORKER-[facility] MRI PROCEDURESFinal Result from Last 3 Months Insurance Care Teams Team MemberRelationshipSpecialtyStart DateEnd Date Back, MD Alcides [address] [place] [id number] PCP - [facility] Systemly [facility]12/08/24
--- OUTSIDE RECORDS SUMMARY | 2025-10-03 10:40 | XMS_ITS | Patient Health Record ---
Author Organization [facility] [place] Address [address] [place] [address] Care Team Providers Care Heel Scourer Name Role Phone None, Unknown or Primary Care Provider Unavailab Frances Plascencia Unavailable [phone] Allergies Allergen (clinical drug ingredient) Drug/Non Drug Allergy documented on EMR Reaction Allergy Type Onset Date Status ChloraPrep One StepUnknownDrug AllergyActive Results Component Value Reference Range Notes BASIC METABOLIC PANL (Not ye t reviewed by provider) Interpretation: Performing Lab:[facility], [address] [place] [address] PH:[phone] Notes/Report: NA (Sodium) 138 135-144 mmol/L K (Potassium)4.43.7-5.3 mmol/AZaxnpnfi08663-407 mmol/YBU05271-82 mmol/LAnion Gap 129-17 mmol/TPumrpzt66024-09 mg/dLBUN (Urea N)176-20 mg/dLCreatinine1.30.5-0.9 mg/sZnGOG96>60 mL/min/1.73m2 extra-renal metabolism of creatine, excessive creatine [...] patients <18 years of age. equation. Calcium9.38.6-10.4 mg/dLCBC (COMPLETE BLOOD COUNT) * (Not yet reviewed by provider) Interpretation: Performing Lab:[facility], [address] [facility] [place] [address] PH:[phone] Notes/Report:WBC Count9.93.5-11.0 k/uLRBC Count3.904.00-5.20 m/dPNkkhsucfcr42.0 12.0-16.0 g/wLUyuoyhmrpv27.336.0-46.0 %MCV87.980.0-100.0 fLMCH28.226.0-34.0 pg MCHC32.131.0-37.0 g/dLRDW17.112.1-15.2 %Platelet Tijtu440605-942 k/uLMPV11.46.0- 12.0 fLCRP (Not yet reviewed by provider) Interpretation: Performing Lab:[facility], [address] [facility] [place] [address] PH:[phone] Notes/Report:C-Reactive Xsbrmxn31.10.0-5.0 mg/LESR (Not yet reviewed by provider) Interpretation: Performing Lab:[facility], [address] [facility] [place] [address] PH:[phone] Notes/Report:Sedimentation Snme969-48 mm/HrBASIC METABOLIC PANL (Not yet reviewed by provider) Interpretation: Performing Lab:[facility], [address] [facility] [facility] [place] [address] PH:[phone] Notes/Report:NA (Sodium)102402-067 mmol/LK (Potassium)4.43.7-5.3 mmol/LChloride 17922-296 mmol/OIC29528-27 mmol/LAnion Ynl30-10 mmol/JFlufwol7187-98 mg/dLBUN (Urea N)196-20 mg/dLCreatinine1.40.5-0.9 mg/cMzOPU19>60 mL/min/1.73m2 extra-renal metabolism of creatine, excessive creatine [...] a race factor using the 2020 CKD-EPI Sxdphwa96.18.6-10.4 mg/dLMORPHX (Not yet reviewed by provider) Interpretation: Performing Lab:[facility], [address] [place] [address]., [place] [address] PH:[phone] Notes/Report:MorphologyMODERATE ANISOCYTOSISESR (Not yet reviewed by provider) Interpretation: Performing Lab:[facility], [address] [place] [address]., [place] [address] PH:[phone] Notes/Report:Sedimentation Hxjo589-94 mm/HrCRP (Not yet reviewed by provider) Interpretation: Performing Lab:[facility], [address] [place] [address]., [place] [address] PH:[phone] Notes/Report:C-Reactive Protein6.20.0-5.0 mg/LCBC (COMPLETE BLOOD COUNT) * (Not yet reviewed by provider) Interpretation: Performing Lab:[facility], [address] [place] [address]., [place] [address] PH:[phone] Notes/Report:WBC Count3.83.5-11.0 k/uLRBC Count3.544.00-5.20 m/uLHemoglobin9.9 12.0-16.0 g/wRTuxivgbwho36.336.0-46.0 %MCV91.280.0-100.0 fLMCH28.026.0-34.0 pg MCHC30.731.0-37.0 g/dLRDW19.412.1-15.2 %Platelet Gbuan823698-291 k/uLMPV11.76.0- 12.0 fLXR foot LT min 3V (Not yet reviewed by provider) Interpretation: Performing Lab: Notes/Report: Source Facility: [place] [address] [place] [address] XRay Report Signed Patient: CELINA GASPAR MR#: [id number] : 1980 Acct:[id number] Age/Sex: 44 / F ADM Date: 11/18/24 Loc: EC Attending Dr: Frances ClarkKarolina Ordering Physician: Frances Chase D.P.M. Date of Service: 11/18/24 Procedure(s): XR foot LT min 3V Accession Number(s): [id number] cc: Frances Chase D.P.M.; Physician,Non-Staff [facility] [address] Patient Name: CELINA GASPAR MRN: [facility]:[id number] date: 1980 Sex: F Assigned Patient Location: Current Patient Location: Accession/Order Number: [id number] Exam Date: 11/18/2024 10:55 Report Date: 11/18/2024 [...] Signed By: 11/18/24 1346 DD/ 1344 TD/TT: Manager Combination:XR foot LT min 3V (Not yet reviewed by provider) Interpretation: Performing Lab: Notes/Report: Source Facility: [place] [address] [place] [address] XRay Report Signed Patient: CELINA GASPAR MR#: [id number] : 1980 Acct:[id number] Age/Sex: 44 / F ADM Date: 11/01/24 Loc: RAD Attending Dr: Frances Chase D.P.M. Ordering Physician: Frances Chase D.P.M. Date of Service: 11/01/24 Procedure(s): XR foot LT min 3V Accession Number(s): [id number] cc: Frances Chase D.P.M.; Physician,Non-Staff [facility] [place] [id number] Patient Name: CELINA GASPAR MRN: [facility]:[id number] date: 1980 Sex: F Assigned Patient Location: [facility] Current Patient Location: Accession/Order Number: [id number] Exam Date: 11/01/2024 10:45 Report Date: 11/02/2024 [...] Signed By: 11/02/24 1312 DD/ 1309 TD/TT: Manager Combination: Reason For Referral Reason Referral to [facility] Diagnosis 1 Charcot's joint, lef t ankle and foot (M14.672) Referral Organization [facility] ([facility]IATRY) Referring Provider First Name Frances Referring [...] Vital Signs Heart Rate 88 /min 11/18/2024 Wuhixyfvuoq14.2 degrees Lnkwcqhisy54/14/5145Heocbpss54 %11/18/20241061Qfbbno95 in 11/18/20247300Tcuzsg778 lbs11/18/2024BMI36.58 kg/m211/18/2024 Encounters Encounter Location Date Provider Diagnosis [facility] ([facility]) [address] [place] [address] [place] [address] 11/18/2024 Frances Chase Pseudarthrosis after fusion or arthrodesis M96.0 ; Charcot's joint, left ankle and foot M14.672 and Pain in left foot M79.672 [facility] ([facility]) [address] [place] [address] [place] [address] 11/01/2024 Frances Chase Charcot's joint, lef t [...] after fusion or arthrodesis (ICD-10 - M96.0) 11/18/2024harcot's joint, left ankle and foot (ICD-10 - M14.672)11/18/2024 Pseudarthrosis after fusion or arthrodesis (ICD-10 - M96.0)Patient is now over 9 months from medial column and subtalar joint fusion performed for midfoot Katherin cot reconstruction. The fusion sites and osteotomy remain [...] foot x-rays11/18/2024Pain in left foot (ICD-10 - M79.672) 11/01/2024Pain in left foot (ICD-10 - M79.672) Plan [...] Insured Coverage Start Date Coverage End Date [facility] [address] [address] [place], [place] [id number] Celina Gaspar Self - patient is the [...] bilateral hands cholecystomyleft midfoot osteotomy and charcot iqydhlyffxcecy77/13/2024ack surgeryhysterectomyHospitalization History Reason Date(Month/Year) see above
--- OUTSIDE RECORDS SUMMARY | 2025-10-03 10:40 | XMS_ITS | Encounter Summary ---
Author Organization [facility] Address [address] [place] [address] Care Team Providers Care Breaker Up Machine Operator Name Role Phone Alcides Adam MD Primary Care Provider [phone] Encounter Details DateTypeDepartmentCare Team (Latest Contact Info)Nirnadpgrgv91/18/2025Travel Social History Tobacco UseTypesPacks/DayYears UsedDateSmoking Tobacco: NeverSmokeless Tobacco: NeverAlcohol UseStandard Drinks/WeekCommentsNot Currently0 (1 standard drink = 0.6 oz pure alcohol)1-2 times a yearCommentsUnknownSex and Gender InformationValueDate RecordedSex Assigned at BirthNot on fileLegal SexFemale 12/17/2022 7:36 PM EDTGender IdentityNot on fileSexual OrientationNot on file documented as of this encounter Plan of Treatment Not on file documented as of this encounter Visit Diagnoses Not on filedocumented in this encounter Care Teams Team MemberRelationshipSpecialtyStart DateEnd Date Alcides Adam MD [address] [place] [address] PCP - GeneralFamily Medicine12/08/24documented as of this encounter
--- OUTSIDE RECORDS SUMMARY | 2025-10-03 10:40 | XMS_ITS | Clinical Summary ---
Author Organization [facility] Address [address] [place] [address] Phone Care Team Providers Care Montessori Program Director Name Role Phone Unavailable Primary Care Provider Unavailabl e Social History Tobacco UseTypesPacks/DayYears UsedDateSmoking Tobacco: Never Assessed CommentsUnknownSex and Gender InformationValueDate RecordedSex Assigned at Not on fileLegal XamIagscz97/25/2022 12:57 PM ESTGender IdentityNot on file Sexual OrientationNot on file Plan of Treatment Not on file
--- OUTSIDE RECORDS SUMMARY | 2025-10-03 10:40 | XMS_ITS ---
Continuity of Care Document (CCD) Created on: October 03, 2025 Celina Egan External Reference #: [id number] : [id number] Sex: Female Author Organization [facility] Address [address] [place] [address] Phone [phone] Care Team Providers Care Tabulating Supervisor Name Role Phone Back, Alcides MELENDREZ Care Team Information Scanning Supervisor + [phone] Problems Active Problems Provider Date Chronic kidney [...] Range N ote .Urine Protein/Creat. Random 06/12/2025 [place], [place] [phone].Urine Protein Random<4.Urine Creatinine Idwvvo56.4.V Ipth-Vitamin D006/12/2025[place], [place] [phone].Ipth40.0.Vitamin D, 25 Hivisak90.2.Renal Panel06/12/2025[place], [place] [phone].Albumin4.2.Calcium9.2.Carbon Mymqhsz92.Zxrkkkcm36.Phosphorus3.9 .Potassium4.5.Voijla491.BUN23.GFR Kioqzdnic21Gqkh28.Creatinine-LC1.3.Urine Protein/Creat. Qikvvk9805/10/2024[place], [place] [phone].Urine Protein Random9.Urine Creatinine Zuhmfb839.0.Urine Prot/Creat Ratio0.07.Zodtkdqas81/06/2024[place], [place] [phone].Magnesium2.2.Urinalysis-Uajlsfg6205/10/2024[place], [place] [phone] Specific Gravity1.020Ua PH Test Strip5.0Ua ColoryellowUa AppearanceclearUa ProteintraceUa GlucosenegativeUa KetonesnegativeUa Bilirubin negativeUa UrobilinogennormalUa NitritenegativeUa Occult Bloodnegative.Renal Panel05/10/2024[place], [place] [phone].Albumin4.2.Calcium9.2.Carbon Vyqmbum00.Qarcpvdl898.Phosphorus3.8 .Potassium4.0.Scdwyw150.BUN19.GFR Asflfnxxk72Jzdr06.Creatinine-LC1.3.Renal Panel 05/17/2023[place], [place] [phone].Albumin4.1.Calcium9.5.Carbon Zpetkjp18.Rfkxaagj980.Phosphorus3.0 .Potassium4.3.Srlisf864.BUN17.GFR >01Grnk65.Creatinine-LC1.1.Urine Protein/Creat. Ytvaiu5005/17/2023[place], [place] [phone].Urine Protein Wjdbkg90.Urine Creatinine Bgqimu675.1.Urine Prot/Creat Ratio0.07.Ipth05/17/2023[place], [place] [phone].Ipth47.1.Vitamin D, 25 Dckikup6505/17/2023[place], [place] [phone].Vitamin D, 25 Xkgsyrx93.1.Urine Protein/Creat. Rglbvq2905/20/2022 [place] [phone].Urine Protein Random7.Urine Creatinine Mqnrag89.1.Urine Prot/Creat Ratio0.07.Tibc-LC05/20/2022[place], [place] [phone].Tibc-LC263.Lmoiyonf75/16/2022[place], [place] [phone].Nbhqhdoa682.Iron05/20/2022[place], [place] [phone].Iron48.Transferrin-LC05/20/2022[place], [place] [phone].Transferrin-LC280.T-Sat-LC05/20/2022[place], [place] [phone].T-Sat-LC0.18.V Ipth-Vitamin D005/20/2022[place], [place] [phone].Ipth39.91.Vitamin D, 25 Pmsiytc79.3.Jhhlrxdaw77/16/2022[place], [place] [phone].Magnesium2.1.Hemoglobin And Qsvpajieec23/16/2022[place], [place] [phone].Hemoglobin Blood11.1.Vwkppdahdq58.3.Renal Panel05/20/2022[place], [place] [phone].Albumin4.4.Yctpswl83.0.Carbon Fkqjpmb04.Oyzcvgrt981.Phosphorus3.8 .Potassium4.3.Ojqelz683.BUN18.ENW72Wrda80.GFR Vyyggihwh72Qpjx42.Creatinine-LC 1.13.Renal Panel (Other Labs)05/21/2021[place], [place] [phone].Albumin4.2.Calcium9.2.Carbon Qgadroo40.Yiyxxzqj778.Creatinine-LC 1.18.Phosphorus3.7.Mwlots574.BUN19.QTD77Bmxq02.Potassium4.2.Urine Protein/Creat. Kvyzih6805/21/2021[place], [place] [phone].Urine Protein Random7.Urine Creatinine Kojinz482.7.Magnesium 05/21/2021[place], [place] [phone].Magnesium2.2.Urinalysis-Fcoygtc8905/21/2021[place], [place] [phone] Specific Gravity1.020Ua PH Test Strip5.0Ua ColorYELLOWUa AppearanceCLEARUa ProteinTRACEUa GlucoseNEGATIVEUa KetonesNEGATIVEUa UrobilinogenNORMALUa Occult BloodNEGATIVE.Ua05/25/2020[place] [phone] AppearanceclearUa Bilirubin-Ua Blood-Ua ColoryellowUa Glucose 100mg/dlUa Leuko-Ua Nitrite-Ua PH Test Strip6.0Ua Protein-Ua Specific Baltic 1.020Ua Urobilinogen-.Urine Protein/Creat. Unpnku1505/25/2020[place], [place] [phone].Urine Protein Random8.Urine Creatinine Meijkx244.2.Urine Prot/Creat Ratio0.08.Renal Panel05/25/2020[place] [phone].Albumin4.4.Umekagy14.1.Carbon Ompstph74.Lzcsnroq751.Creatinine-LC 1.37.Vxnbafnkwy12.Pvvexx428.BUN24.GFR-EX86Uqrl60.Potassium4.6.Renal Panel 06/17/2019[place], [place] [phone].Albumin4.3.Snhdyyl11.4.Carbon Akeqmxi72.Axzvimga416.Creatinine-LC 1.27.Phosphorus3.0.Mrlgqg827.BUN18.GFR-VC07Lvrj62.Potassium3.8.Ua06/17/2019[place] [phone] AppearanceHAZYUa Bacteria1+Ua BilirubinNEGUa BloodNEGUa Color YELLOWUa Epithelial Cells QL2-5Ua GlucoseNEGUa KetonesNEGUa LeukoNEGUa Nitrite NEGUa PH Test Strip6.0Ua ProteinTRACEUa Specific Gravity1.025Ua Urobilinogen NORMALUa WBC0-2.Urine Protein/Creat. Zyeims1106/17/2019[place] [phone].Urine Protein Jrvhep40.Urine Creatinine Mupiau886.2.Urine Prot/Creat Ratio0.08.Oyoufaslo88/13/2019[place] [phone].Magnesium2.3.Hemoglobin And Gehbcbhjdd88/13/2019[place] [phone].Hemoglobin Blood12.1.Kdixtlgccj81.4.Renal Panel -LC04/14/2018 [place] [phone].Albumin3.7.Calcium8.9.Carbon Cfijjvh82.Rownmyov022.Creatinine-LC 1.28.Phosphorus3.6.Npcmnd530.BUN19.GFR-UU74Odxm97.Potassium4.1.Urine Protein/Creat. Hevgac7304/14/2018[place] [phone].Urine Protein Random7.Urine Creatinine Nctckg291.7.Urine Prot/Creat Ratio0.07.CBC W/Pdmlunljrjwx36/11/2018[place] [phone].White Blood Count8.6.Red Blood Count4.40.Hemoglobin Blood13.3 .Dcmhfufvul45.4MCH (Corpuscular Hemoglobin)30.2MCHC (Corpuscular Hemog Conc)33.7 RDW15.6.Platelet Count Ijrqe445Mqealjteorc42Mzrak Dsgguapkjpj14Dwsaesewx7Eqcfa Body Mzznaikaygs2Kyjctgnof %1Absolute Basophils0.10Absolute Eosinophils0.20 Absolute Lymphocytes2.70Absolute Monocytes0.50.Ipth04/14/2018[place] [phone].Ipth63.70Fkgb9011/18/2017[facility], Abdomen, W/ ContrastSEE CNMNDNFjjo11/14/2018[facility], Abdomen, W/ ContrastCORTICAL CYST L KIDY.Urinalysis-Cljgznl0311/17/2017 [facility] [phone] UrineNO SIGNIFICANT H.Urinalysis-Nahsawb2511/17/2017[facility] [phone] Specific Gravity1.014Ua PH Test Strip6.0Ua ColorYELLOWUa AppearanceHAZYUa WBC6Ua ProteinNEGUa GlucoseNEGUa KetonesNEGUa BilirubinNEGUa Urobilinogen<2.0Ua NitriteNEGUa Occult BloodMOD.CMP11/17/2017[facility] [phone].Albumin3.1.Alt18.Calcium8.6.Carbon Objqiks34.Egxitsan500 .Creatinine-LC1.13.Glucose Mdyng037.Alkaline Phos78.Potassium3.7.Protein-Total 6.8.Gbrjuv773.Ast7.BUN17.GFR Cltgconmn86Yjar88.Urine Prot/Creat Ratio02/17/2017 [place] [phone].Urine Prot/Creat Ratio0.07Miscellaneous Other02/17/2017[place], [place] [phone] Test - Put Test In Ordercompleted.Renal Panel -LC02/17/2017 [place] [phone].Albumin4.1.Calcium9.4.Carbon Bathjml24.Qspudfhr679.Creatinine-LC 1.31.Phosphorus3.4.Rgkefx642.BUN21.GFR-PT23Sfgh54.Potassium4.1.BMP W/Egfr-LC 08/07/2016[facility] [phone].Fgowkc340.Potassium4.3.Elfbyuki627.Carbon Xrvtxlk70.Calcium9.5 .Glucose Ckaut571.GFR-TW76Bqlj29.Creatinine-LC1.17.BUN16.Hemoglobin A1c-LC 08/07/2016[facility] [phone].Hemoglobin T7o-KJ1.1.Lipid Panel08/07/2016[facility] [phone].Kumffnmelks531.Cholester/HDL Ratio6.2High Density Jjkqhvrmbck49 .LDL/HDL Ratio79.LDL Hiwjbvkftad342.Eccleknevapsp223.CBC W/O Differential 08/07/2016[facility] [phone].Vmjszrzmuu04.1.Hemoglobin Blood12.6.Platelet Count Xwahx885.Red Blood Count4.48XSH51.2.White Blood Count7.6MCH (Corpuscular Hemoglobin)29.8MCHC (Corpuscular Hemog Conc)34.1Urine Izwsfck6906/08/2015[place] [phone] Urine Routinesee report.Urinalysis-Erauwya3406/08/2015[place] [phone] Specific Gravity1.020Ua PH Test Strip5.0Ua ColoryellowUa AppearanceclearUa ProteinnegativeUa GlucosenegativeUa BilirubinnegativeUa UrobilinogennormalUa Nitritenegative.Urine Protein/Creat. Jeozms2606/08/2015[place] [phone].Urine Protein Frpvvd10.Urine Creatinine Ydfewg346.4.Urine Prot/Creat Ratio0.05.Renal Panel06/08/2015[place], [place] [phone].Albumin4.0.Calcium8.9.Carbon Gkbegcz17.Xicugucj689.Creatinine-LC 1.29.Phosphorus3.0.Potassium3.6.Htggmg741.BUN14.GFR-IR86Vzwl29.Hemoglobin And Euvoonqari74/04/2015[place], [place] [phone].Hemoglobin Blood12.8.Cmgyrsjuta44.2.Ua12/29/2014[place] [phone] AppearanceclearUa BilirubinnegativeUa BloodtraceUa Coloryellow Ua Epithelial Cells QL2 to 5Ua GlucosenegativeUa LeukonegativeUa Nitritenegative Ua PH Test Strip5.0Ua ProteinnegativeUa RBC0 to 2Ua Specific Gravity1.020Ua Urobilinogennormal.Renal Panel12/29/2014[place], [place] [phone].Albumin4.1.Calcium9.7.Carbon Fwfgnze39.Sbaulfmc792.Creatinine-LC 1.50.Phosphorus4.2.Potassium4.1.Ticmed663.BUN18.GFR-LK65Swey44.Urine Protein/Creat. Falwiy3712/29/2014[place], [place] [phone].Urine Protein Random6.Urine Creatinine Foihoy268.0.Urine Prot/Creat Ratio0.05.Renal Panel12/06/2014[place] [phone].Albumin4.0.Calcium9.2.Carbon Nfytrzv53.Obbjjomf453.Creatinine-LC 1.32.Phosphorus3.0.Potassium4.3.Vkcnwu440.BUN17.GFR-KR75Puta13.Urine Protein/Creat. Vmkihi3512/06/2014[place], [place] [phone].Urine Protein Random7.Urine Creatinine Ucmbvh390.8.Urine Prot/Creat Ratio0.04.Ua12/06/2014[place] [phone] AppearanceclearUa Bacteria1+Ua BilirubinnegativeUa BloodtraceUa ColoryellowUa Epithelial Cells QL2 to 5Ua GlucosenegativeUa LeukonegativeUa NitritenegativeUa PH Test Strip6.0Ua ProteinnegativeUa RBC2 to 5Ua Specific Gravity1.020Ua Urobilinogennormal.Complement C306/13/2014[place] [phone].Complement C3140.Zeegqrocx12/09/2014[place] [phone].Magnesium2.3.Toqizmx8506/13/2014[place] [phone].Calcium9.1.Pwsqtigeah19/09/2014[place] [phone].Phosphorus3.8.Urine Protein 24HR06/13/2014[place] [phone].Urine Protein Total 24H63.Urinalysis-Ggomqwr3106/13/2014[place] [phone] Specific Gravity1.015Ua PH Test Strip6.0Ua ColorYELLOWUa AppearanceCLEARUa ProteinNEGATIVEUa GlucoseNEGATIVEUa BilirubinNEGATIIVEUa UrobilinogenNORMALUa NitriteNEGATIVE.V Ipth-Vitamin D006/13/2014[place] [phone].Ipth49.31.Vitamin D, 25 Foqkjqk64.9.Anca Panel-LC06/13/2014[place] [phone].Anca-C30.Anca-P7.Urine Protein Elect Ran06/13/2014[place] [phone] InterpretationNORMAL.GBM Antibody-LC06/13/2014[place] [phone].Qawk-EDP-MK9.Complement Total (CH50)06/13/2014[place] [phone].Complement Total (CH50)115.Complement C406/13/2014[place] [phone].Complement C429.Ipth06/13/2014[place] [phone].Ipth49.31.Lipid Panel06/13/2014[place] [phone].Gcgfirmvvfa48.Cholester/HDL Ratio5.6High Density Qgefzeqxtav91 .LDL/HDL Ratio58.LDL Lgweemcguov645.Bpvkuwbdrpaiw888.Immunofixation-Urine 06/13/2014[place] [phone].Immunofixation-UrineNEGATIVE.Vitamin D, 25 Dioumvt2506/13/2014[place] [phone].Vitamin D, 25 Dtjwxlw50.9.Wbmsyjfirlck00/09/2014[place] [phone].Cryoglobulin0.Hepatitis B-Surface Bcnxpvg0506/13/2014[place] [phone].Hepatitis B-Surface AntigenNON REACTIVE.Hepatitis C006/13/2014 [place] [phone].Hepatitis CNON REACTIVE.Immunofixation-Serum06/13/2014[place] [phone].Immunofixation-SerumNEGATIVE.Hemoglobin And Zuahernlbf45/09/2014 [place] [phone].Hemoglobin Blood13.0.Pybdxsdhvl02.9.Urine Eosinophils Random 06/13/2014[place] [phone].Urine Eosinophils RandomNONE SEEN.BUN06/13/2014[place], [place] [phone].BUN18.Creatinine-LC06/13/2014[place] [phone].Creatinine-LC1.27.GFR-LC06/13/2014[place] [phone].GFR-RE12Suev65.Irrtfl3906/13/2014[place] [phone].Eyivof611.Jqbehdcdm18/09/2014[place] [phone].Potassium4.4.Txnjxufb32/09/2014[place] [phone].Iztxoljp559.Carbon Cwjmyjj8706/13/2014[place] [phone].Carbon Nibsvwd27.Renal Panel05/30/2014[facility] [phone].Albumin3.9.Calcium9.3.Carbon Xtkfkif83.Koktveml315.Creatinine-LC 1.41.Potassium3.6.Crjcxf447.BUN16.GFR-PV63Kmkh41.GFR Jodtjwrb87Siod07 .GFR Iswdlkyyk53Utln26.Urinalysis-Wjfutst0005/30/2014[facility] [phone] Specific Gravity1.030Ua PH Test Strip5.0Ua ColoryellowUa AppearancehazyUa ProteinnegativeUa GlucosenegativeUa KetonesnegativeUa Bilirubin negativeUa UrobilinogennormalUa Nitritenegative.Renal Panel05/22/2014[facility] [phone].Albumin4.1.Calcium9.1.Carbon Abcmvvu02.Rdqqnwgg957.Creatinine-LC 1.45.Potassium3.8.Slpivl911.BUN19.GFR-TU28Vuem16.GFR Dakluunl65Kgve91 .GFR Zvgsaxmks42Zoxt87.Renal Panel01/13/2014[facility] [phone].Albumin4.1.Calcium9.3.Carbon Ylvnkch18.Azrwvyau107.Creatinine-LC 1.26.Potassium4.1.Odixqt277.BUN19.GFR-ZX87Ysvq27.GFR Oomwaxyb05Rqvr44 .GFR Jodwmxzgz77Avzc63 Encounters Type Date Location Provider Dx Diagnosis Office Visit 06/14/2025 2:20p [facility] Heather Forbes M.D. N11.9 Chronic tubulo-interstitial nephritis, unspecified N18.31 Chronic kidney disea se, stage 3a Office Visit 05/13/2024 1:00p [facility] SHUKRI Sebastian N11.9 Chronic tubulo-interstitial nephritis, unspecified N18.31 Chronic kidney disea se, stage 3a Office Visit 05/18/2023 11:00a [facility] Jerica Stokes N11.9 Chronic tubulo-interstitial nephritis, unspecified N18.31 Chronic kidney disea se, stage 3a D50.9 Iron deficiency anem ia, unspecified E55.9 Vitamin D deficiency , unspecified Office Visit 05/23/2022 11:00a [facility] Jerica Stokes N11.9 Chronic tubulo-interstitial nephritis, unspecified N18.31 Chronic kidney disea se, stage 3a D50.9 Iron deficiency anem ia, unspecified E55.9 Vitamin D deficiency , unspecified Office Visit 05/22/2021 1:30p [facility] Tequila Giles NP N11.9 Chronic tubulo-interstitial nephritis, unspecified N18.30 Chronic kidney disea se, stage 3 unspecified Office Visit 06/08/2020 11:20a [facility] Heather Forbes M.D. N11.9 Chronic tubulo-interstitial nephritis, unspecified N18.3 Chronic kidney disea se, stage 3 (moderate) Office Visit 06/22/2019 10:00a [facility] Heather Forbes M.D. N11.9 Chronic tubulo-interstitial nephritis, unspecified N18.3 Chronic kidney disea se, stage 3 (moderate) Office Visit 05/04/2018 10:20a [facility] Heather Forbes M.D. N11.9 Chronic tubulo-interstitial nephritis, unspecified N18.3 Chronic kidney disea se, stage 3 (moderate) Office Visit 03/13/2017 2:00p [facility] Heather Forbes M.D. N11.9 Chronic tubulo-interstitial nephritis, unspecified N18.3 Chronic kidney disea se, stage 3 (moderate) E78.1 Pure hyperglyceridem ia Office Visit 06/15/2015 1:00p [facility] Heather king M.D. 585.3 Chronic Kidney Disease Stage 3 582.89 Interstitial Nephrit is 530.81 Esophageal Reflux Office Visit 12/15/2014 1:00p [facility] BRENDEN Boyer P 585.3 Chronic Kidney Disease Stage 3 582.89 Interstitial Nephrit is V58.64 Snf (Current)Us e Of Non-Steroid Antiinflammatories 530.81 Esophageal Reflux Office Visit 07/07/2014 11:40a [facility] Heather high M.D. 585.3 Chronic Kidney Disease Stage 3 582.89 Interstitial Nephrit is V58.64 Snf (Current)Us e Of Non-Steroid Antiinflammatories 530.81 Esophageal Reflux Office Visit 06/09/2014 1:00p [facility] Matheus ngo 585.3 Chronic Kidney Disease Stage 3 582.89 Interstitial Nephrit is V58.64 Snf (Current)Us e Of Non-Steroid Antiinflammatories 789.00 Pain Abdominal Unspe c Site Assessments Date Code Description Provider 06/14/2025 N11.9 Chronic tubulo-i nterstitial nephritis, unspecified Heather Heidyna M.D. 06/14/2025 N18.31 Chronic kidney disease, stag e 3a Heatherwoody Forbes M.DLori 05/13/2024 N11.9 Chronic tubulo-i nterstitial nephritis, unspecified RYAN SebastianC 05/13/2024 N18.31 Chronic kidney disease, stag e 3a RYAN SebastianC 05/18/2023 N11.9 Chronic tubulo-i nterstitial nephritis, unspecified [place], Jerica 05/18/2023 N18.31 Chronic kidney disease, stag e 3a [place], Jerica 05/18/2023 D50.9 Iron deficiency anemia, unsp ecified Kike, Jerica 05/18/2023 E55.9 Vitamin D deficiency, unspec ified Kike, Jerica 05/23/2022 N11.9 Chronic tubulo-i nterstitial nephritis, unspecified [place], Jerica 05/23/2022 N18.31 Chronic kidney disease, stag e 3a Kike, Jerica 05/23/2022 D50.9 Iron deficiency anemia, unsp ecified [place], Jerica 05/23/2022 E55.9 Vitamin D deficiency, unspec ified Kike, Jerica 05/22/2021 N11.9 Chronic tubulo-i nterstitial nephritis, unspecified Heather Heidyna M.D. 05/22/2021 N11.9 Chronic tubulo-i nterstitial nephritis, unspecified Tequila Giles NP 05/22/2021 N18.30 Chronic kidney disease, stag e 3 unspecified Heather Benjaminadana M.D. 05/22/2021 N18.30 Chronic kidney disease, stag e 3 unspecified Tequila Giles, PHYSICIAN INTERVENTIONAL CARDIOLOGIST 06/08/2020 N11.9 Chronic tubulo-i nterstitial nephritis, unspecified [...] Chronic Kidney Disease Stage 3 Cheryl Palomo, PICKLER HELPER 12/15/2014 582.89 Interstitial Nephritis Cheryl Palomo, PICKLER HELPER 12/15/2014 V58.64 Snf (Curren t)Use Of Non-Steroid Antiinflammatories Cheryl Palomo, PICKLER HELPER 12/15/2014 530.81 Esophageal Reflux Cheryl liang, PICKLER HELPER 07/07/2014 585.3 Chronic Kidney Disease Stage 3 Heather Kamadana M.D. 07/07/2014 582.89 Interstitial Nephritis Swapn a Kamadana M.D. 07/07/2014 V58.64 Snf (Curren t)Use Of Non-Steroid Antiinflammatories Heather Kamadana M.D. 07/07/2014 530.81 Esophageal Reflux Heather stevens M.D. 06/09/2014 585.3 Chronic Kidney Disease Stage 3 Doug Klein M.D. 06/09/2014 582.89 Interstitial Nephritis Kenroy Klein M.D. 06/09/2014 V58.64 Snf (Curren t)Use Of Non-Steroid Antiinflammatories Doug Klein M.D. 06/09/2014 789.00 Pain Abdominal Unspec Site S yasmin Klein M.D.
--- OUTSIDE RECORDS SUMMARY | 2025-10-03 10:40 | XMS_ITS | Clinical Summary ---
[facility] Address [address] [place] [address] Care Team Providers Care Graphic Designer Name Role Phone BackAlcides MD Primary Care Provider [phone] Allergies No known active allergies Medications MedicationSigDispense [...] 08/19/2017Active Active Problems ProblemNoted DateDiagnosed DateBasal cell xfksyhdmu30/26/2017 Overview (09/29/2017): Added automatically from request for surgery [id number] Basal cell carcinoma of skin of face09/16/2017Neoplasm of uncertain behavior of skin Social History Tobacco UseTypesPacks/DayYears UsedDateSmoking Tobacco: NeverSmokeless Tobacco: NeverAlcohol UseStandard Drinks/WeekCommentsNo0 (1 standard drink = 0.6 oz pure alcohol)CommentsUnknownSex and Gender InformationValueDate RecordedSex Assigned at BirthNot on fileLegal IllXdrgkm91/06/2017 7:26 PM ESTGender Identity Djblnq9706/25/2017 9:30 AM EDTSexual OrientationNot on file Last Filed Vital Signs Vital SignReadingTime TakenCommentsBlood Hfuuixvg737/78011/24/2017 12:00 PM EST Paiig106711/24/2017 12:00 PM GGXBiwcczcljrn52.6 ??C (97.9 ??F)11/24/2017 12:00 PM ESTRespiratory Ijxg181410/09/2017 11:44 AM ESTOxygen Jtzciecach90%10/09/2017 11:44 AM ESTInhaled Oxygen Concentration--Yjiblo333.5 kg (221 lb 8 oz)02/26/2022 2:01 PM QYYJjvkmi351.8 cm (5' 2.5 )02/26/2022 2:07 PM EDTBody Mass Index39.87 02/26/2022 2:01 PM EDT Plan of Treatment Health MaintenanceDue DateLast DoneCommentsHEPATITIS C VIRUS VZMBOHTNR1979 HIV SCREENING PSCHYWDOLL03/25/1994HEP B VACCINE (1 of 3 - 19+ 3-dose series) 1998CERVICAL CANCER SCREENING RETPPAFVQJ85/25/2000LIPID SCREENING 2019MAMMOGRAM SCREENING XTMCIWRLXF79/25/2019COLORECTAL CANCER SCREENING MTPQBTMFVN01/25/1040NWCBFWR95COVID-19 VACCINE ( - season)2025INFLUENZA VACCINE (#1)2025TDAP (ADULT)Izeaokngu10/05/2014 PNEUMOCOCCAL VACCINE SERIESAged OutNo longer eligible based on patient's age to complete this topic Insurance Care Teams Team MemberRelationshipSpecialtyStart DateEnd Date Back, MD Alcides [address] [place] [address] PCP - GeneralInternal Fdlqkjvb06/27/17
--- OUTSIDE RECORDS SUMMARY | 2025-10-03 10:44 | XMS_ITS | CCD ---
Author Organization [facility] Care Team Providers Care Bisque Kiln Drawer Name Role Phone Back, Felipe Unavailable Unavailable [...] Primary Care Unavailable MORGAN LUIS Consulting Unavailable NAYN HOLLIS Attending Unavailable KIERA TERRY Consulting Unavailable [...] Care Provider Back, Felipe Primary Care Provider [phone] Back, Felipe Primary Care Provider Unavailabl e Back , Felipe Primary Care Provider [phone] Back , Felipe Primary Care Provider Back , Felipe Primary Care Provider BACK, FELIPE Primary Care Unavailable MUTNAL, AMAR Admitting Unavailable MUTNAL, AMAR Attending Unavailable Back , Felipe Primary Care Provider [phone] NON STAFF Primary Care Provider UnavailMD Trace Mixon. Attending Provider [phone] Back , Felipe Primary Care Provider YOON COBB Referring Unavailable BACK, FELIPE Primary Care Unavailable Back , Felipe Primary Care Provider [phone] [place] Attending Unavail able BACK, FELIPE Primary Care Unavailable Back , Felipe Primary Care Provider FRANCES HARRIS Admitting Unavailable FRANCES HARRIS Attending Unavailable FRANCES HARRIS Consulting Unavailable FRANCES HARRIS Admitting Unavailable FRANCES HARRIS Attending Unavailable [facility], DR PIPER Ackerman Consulting Unavailable HIGHLFRANCES HERNANDEZ Consulting Unavailable FRANCES HARRIS Admitting Unavailable FRANCES HARRIS Attending Unavailable [place], DR EMILY Riojas Consulting Unavailable FRANCES HARRIS Consulting Unavailable Back , Felipe Primary Care Provider [phone] BACK, FELIPE Primary Care Unavailable ROBBIN SHOOK II Attending Un available Back , Felipe Primary Care Provider INDER Harris Attending Provider [phone] Frances Harris Attending Unavailable Frances Harris Admitting [...] Unavailable Back Alcides MELENDREZ Primary Care Provider [phone] BACK, FELIPE Attending Unavailable BACK, FELIPE Referring [...] of OnsetReaction(s) Facility (20 sources)Chlorhexidine; Translations: [CHLORHEXIDINE]Drug [id number] [facility] (13 sources)topiramate; Translations: [TOPIRAMATE]Drug Ilbotmx85-05-6785Rpuio (See Comments)[facility] (20 sources)TopiramatePropensity to adverse nlkqjokjv55-26-6823[facility] (1 source)Chlorhexidine; Translations: [Chlorhexidine Gluconate]Drug Allergy [facility] Repository Medications Current Medications MedicationDrug Class(es)DatesSig (Normalized)Sig (Original)acetaminophen 325 mg / HYDROcodone bitartrate 5 mg oral tablet (10 sources)Opioid AgonistStart: 44-42-2213SGDQDikkqbj-acetaminophen (NORCO) 5- 325 MG per tablettake 1 tablet by mouth every eight hours as neededhydroCODone- acetaminophen 5-325 MG Tab tablet take 1 tablet by mouth every 8 hours as needed. ActiveALPRAZolam 0.25 mg oral tablet (20 sources)BenzodiazepineStart: 45-68-7391kgrv 1 tablet by mouth once daily ALPRAZolam (XANAX) 0.25 MG tablet Take 1 tablet by mouth nightly. 03/14/2025 Activeamoxicillin 875 mg / clavulanate 125 mg oral tablet (1 source)Penicillin-class AntibacterialStart: 08-08-2020 End: 51-84-8199ufyv 1 tablet by mouth twice dailyamoxicillin-clavulanate (AUGMENTIN) 875-125 MG per tablet Indications: Bacterial sinusitis Take 1 tablet by mouth 2 times daily for 7 days 14 tablet 0 08/08/2020 08/15/2020 Xdycjo36 hr amphetamine aspartate 5 mg / amphetamine sulfate 5 mg / dextroamphetamine saccharate 5 mg / dextroamphetamine sulfate 5 mg extended release oral capsule (4 sources)Central Nervous System StimulantStart: 02-25-2023 End: 69-15-8653girnrnozhvgsdccrd-amphetamine (ADDERALL XR) 20 MG 24 hr capsule 02/25/2023 10/11/2024 Discontinued (Patient Discharge)Start: 53-30-8739fbkm 1 capsule by mouth once daily in [...] tablet (20 sources)gamma-Aminobutyric Acid-ergic AgonistStart: 12-16-2024 End: 93-71-1433ynin 2 tablets by mouth at bedtimebaclofen (Lioresal) 10 MG tablet Indications: Cervical paraspinal muscle spasm TAKE 2 TABLETS BY MOUTH AT BEDTIME FOR 30 DAYS 60 tablet 3 05/24/2025 ActiveStart: 39-04-2061njms 2 tablets by mouth at bedtimebaclofen (Lioresal) 10 MG tablet Indications: Cervical paraspinal muscle spasm TAKE 2 TABLETS BY MOUTH AT BEDTIME FOR 30 DAYS 60 tablet 3 07/12/2024 ActiveStart: 17-35-8936bczk 1 tablet by mouth once dailybaclofen (LIORESAL) 10 MG tablet Take 1 tablet by mouth nightly 04/19/2022 Activebiotin 1 mg oral tablet (20 sources)Start: 89-54-2844xcho 1 tablet by mouth once dailyBiotin 1000 [...] oral capsule (18 sources)Cephalosporin AntibacterialStart: 08-13-2023 End: 53-45-7633hsaz 1 capsule by mouth once daily as needed for urinary tract infectioncephALEXin (KEFLEX) 250 MG capsule Indications: Frequent UTI Take 1 capsule by mouth daily as needed (post-coital UTI prophylaxis) 30 capsule 1 08/13/2023 ActiveStart: 57-61-4419mycc 1 capsule by mouth once daily as needed for urinary tract infectioncephALEXin (KEFLEX) 250 MG capsule Indications: Frequent UTI Take 1 capsule by mouth daily as needed (post-coital UTI prophylaxis) 30 capsule 1 08/07/2022 Activecholecalciferol 0.05 mg oral capsule (20 sources)Vitamin DStart: 28-32-5326rxbp 1 capsule by mouth once daily Cholecalciferol (VITAMIN D) 2000 UNITS CAPS capsule Indications: Vitamin D deficiency Take 1 capsule by mouth daily. 30 capsule 12 09/11/2014 Active cholecalciferol (Vitamin D-3) 50 MCG (2000 UT) tablet Take by mouth Active cholecalciferol, vitamin D3, (VITAMIN D3) 2,000 unit Tab Take by mouth. Active clindamycin 300 mg oral capsule (16 sources)Lincosamide AntibacterialStart: 04-04-2025 End: 28-88-1942meqgkcilxxm (CLEOCIN) 300 MG capsule 04/13/2025 ActiveStart: 49-96-7908zdzymwyfbma (CLEOCIN) 150 MG capsulecyclobenzaprine hydrochloride 5 mg oral tablet (16 sources)Muscle Relaxanttake 0.5 tablet by mouth once dailycyclobenzaprine (FLEXERIL) 5 MG tablet Take 5 mg by mouth nightly 1/2 tablet every night 0 Activedapagliflozin 10 mg oral tablet (7 sources)Sodium-Glucose Cotransporter 2 InhibitorStart: 30-02-3793lryo 1 tablet by mouth once daily in the morningdapagliflozin (FARXIGA) 10 MG tablet Indications: Stage 3a chronic kidney disease (HCC) , Pre-diabetes Take 1 tablet by mouth every morning 90 tablet 1 06/19/2025 Rqkfdr81 hr desvenlafaxine succinate 25 mg extended release oral tablet (1 source)Serotonin and Norepinephrine Reuptake InhibitorStart: 07-29-2021 desvenlafaxine succinate (PRISTIQ) 25 MG TB24 extended release tablet 25 mg daily 0 07/29/2021 Activedextromethorphan hydrobromide 15 mg / guaiFENesin 400 mg / pseudoephedrine hydrochloride 60 mg oraltablet (1 source)alpha-Adrenergic Agonist, Uncompetitive Q-dmwluy-V-aspartate Receptor Antagonist, Sigma-1 AgonistStart: 02-13-2021 End: 67-77-7174qhte 1 tablet by mouth every six hours as needed Ldhtqryljribdqj-ZG-AB (CAPMIST DM) 60-15-400 MG TABS Take 1 tablet by mouth every 6 hours as needed(Sinus pressure) 28 tablet 0 02/13/2021 02/20/2021 Active doxycycline hyclate 100 mg oral capsule (15 sources)Tetracycline-class DrugStart: 09-20-2018 End: 63-41-4668hpix 1 capsule by mouth twice dailydoxycycline hyclate [...] mg/mg ophthalmic ointment (2 sources)Macrolide, Macrolide AntimicrobialStart: 43-20-7044strjexwkrovt 5 MG/GM Ointment ophthalmic ointment Apply to eye incisions 2 x a day 1 Tube 0 08/19/2017 Activefamotidine 20 mg oral tablet (20 sources)Histamine-2 Receptor AntagonistStart: 24-66-4502fqrztmewey (PEPCID) 20 MG tablet Indications: Gastroesophageal reflux disease without esophagitis TA KE 1 TABLET TWICE A DAY 180 tablet 3 04/03/2025 ActiveStart: 12-62-0848jppa 1 tablet by mouth twice dailyfamotidine (PEPCID) 20 MG tablet Indications: Gastroesophageal reflux disease without esophagitis Take 1 tablet by mouth 2 times daily 60 tablet 5 05/26/2023 ActiveStart: 63-94-9832ysom 1 tablet by mouth twice dailyfamotidine (PEPCID) 20 MG tablet Indications: Gastroesophageal reflux disease without esophagitis Take 1 tablet by mouth 2 times daily 60 tablet 3 2022 Activefluconazole 150 mg oral tablet (1 source)Azole AntifungalStart: 76-25-0704uxdtmfnujqf (DIFLUCAN) 150 MG tablet Indications: Antibiotic-induced yeast infection Take 1 tablet by mouth at first sign of yeast infection and repeat in 72 hours for severe infection. 2 tablet 0 06/06/2021 Activefluticasone propionate 0.05 mg/actuat metered dose nasal spray (20 sources)CorticosteroidStart: 27-07-8048flth 2 spray(s) nasal route once dailyfluticasone (FLONASE) 50 MCG/ACT nasal spray Indications: Seasonal allergies USE 2 SPRAYS IN EACH NOSTRIL DAILY 48 g 3 09/22/2022 ActiveStart: 40-24-7980vyue 2 spray(s) nasal route once dailyfluticasone (Flonase) 50 MCG/ACT nasal spray Administer 2 sprays into each nostril Daily 09/22/2022ctiveStart: 23-28-0748ubeg 2 spray(s) nasal route in the morningfluticasone (Flonase) 50 MCG/ACT nasal spray Administer 2 sprays into each nostril in the morning. 1 11/23/2021 ActiveStart: 48-35-2050qrfi 2 spray(s) nasal route once daily fluticasone [...] 600 mg oral tablet (2 sources)Anti-epileptic AgentStart: 93-72-4742henb 1 tablet by mouth twice dailygabapentin 600 [...] mg oral capsule (11 sources)Guanylate Cyclase-C AgonistStart: 36-78-3949lunn 1 capsule by mouth once dailylinaclotide (LINZESS) 145 MCG capsule Indications: Drug-induced constipation Take 1 capsule by mouth daily 90 capsule 1 05/09/2024 Active lisdexamfetamine dimesylate 40 mg oral capsule (20 sources)Central Nervous System StimulantStart: 09-69-1434LHTUHPA 40 MG CAPS Take 50 mg by mouth daily. 03/04/2023 ActiveStart: 99-84-1655ERGDHJK 40 MG CAPS Start: 52-66-0839ZUKAYQG 40 MG CAPS daily. 0 05/06/2021 ActiveStart: 01-10-2021 VYVANSE 20 MG CAPS End: 49-08-6505poqq 1 capsule by mouth in the morninglisdexamfetamine (Vyvanse) 50 MG capsule Take 50 mg by mouth in the morning. 09/14/2024 Discontinued (Ineffective)loperamide hydrochloride 2 mg oral capsule (1 source)Opioid AgonistStart: 01-21-2021 End: 55-63-6696jkgo 1 capsule by mouth four times daily as needed for diarrhea loperamide (RA ANTI-DIARRHEAL) 2 MG capsule Indications: Diarrhea in adult patient Take 1 capsule by mouth 4 times daily as needed for Diarrhea 20 capsule 0 01/21/2021 01/26/2021 Activemelatonin 3 mg oral tablet (17 sources) End: 34-49-1054jqvornpsq 3 mg Tab Take by mouth nightly. 10/11/2024 Discontinued (Patient Discharge)methocarbamol 500 mg oral tablet (2 sources)Muscle RelaxantStart: 72-28-8545afekkdwhtyqfz (ROBAXIN) 500 MG tablet montelukast 10 mg oral tablet (20 sources)Leukotriene Receptor AntagonistStart: 09-22-2022 End: 99-63-2458fyjwxqmdhwl (SINGULAIR) 10 MG tablet Indications: Seasonal allergies TAKE 1 TABLET NIGHTLY 90 tablet 3 09/22/2022 ActiveStart: 04-11-2022 take 1 tablet by mouth once dailymontelukast (SINGULAIR) 10 MG tablet Indications: Seasonal allergies Take 1 tablet by mouth tablet 1 04/11/2022 ActiveStart: 37-93-4257hkowszlcnfo (SINGULAIR) 10 MG tablet nitrofurantoin, macrocrystals 25 mg / nitrofurantoin, monohydrate 75 mg oral capsule (1 source)Nitrofuran AntibacterialStart: 06-11-2021 End: 60-18-9712dfjf 1 capsule by mouth twice dailynitrofurantoin, macrocrystal- monohydrate, (MACROBID) 100 MG capsule Indications: Acute cystitis with hematuria Take 1 capsule by mouth 2 times daily for 5 days 10 capsule 0 06/11/2021 06/16/2021 Activenortriptyline 50 mg oral capsule (20 sources)Tricyclic AntidepressantStart: 02-13-2025 End: 70-15-0758udmj 3 capsules by mouth once dailynortriptyline (PAMELOR) 50 MG capsule Take 3 capsules by mouth nightly 02/13/2025 02/13/2026 ActiveStart: 09-14-2024 End: 53-63-9773vgpy 2 capsules by mouth at bedtimenortriptyline (Pamelor) 50 MG capsule Indications: Idiopathic progressive polyneuropathy , Intractable 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 (CMS/HCC) Take 2 capsules (100 mg) by mouth at bedtime 180 capsule 3 11/02/2024 02/13/2025 Discontinued (Reorder)Start: 06-10-2024 End: 90-81-8179haro 2 capsules by mouth at bedtimenortriptyline (Pamelor) 25 MG capsule Indications: Idiopathic progressive polyneuropathy , Bilateral carpal tunnel syndrome , Restless legs , Intractable chronic migraine without aura and with statusmigrainosus (CMS/HCC) Take two capsules by mouth at bedtime. Total of 50 mg. 90 capsule 3 06/10/2024 09/14/2024 Discontinued (Reorder)Start: 11-12-2023 End: 75-78-0945ngst 1 capsule by mouth at bedtimenortriptyline (Pamelor) 25 MG capsule Indications: Idiopathic progressive polyneuropathy , Bilateral carpal tunnel syndrome , Restless legs , Intractable chronic migraine without aura and with statusmigrainosus (CMS/HCC) Take 1 capsule (25 mg) by mouth at bedtime 90 capsule 3 11/12/2023 06/10/2024iscontinued (Reorder)PARoxetine hydrochloride 20 mg oral tablet (5 sources)Serotonin Reuptake InhibitorStart: 19-24-7915bkbo 1 tablet by mouth once dailyparoxetine 20 MG Tab take 20 mg by mouth daily. 06/09/2017 Active phentermine hydrochloride 37.5 mg oral tablet (3 sources)Sympathomimetic Amine AnorecticStart: 05-26-2023 End: 45-86-2709knei 1 tablet by mouth once daily before breakfastphentermine (ADIPEX-P) 37.5 MG tablet Indications: Class 2 severe obesity due to excess calories with serious comorbidity and body mass index (BMI) of 38.0 to 38.9 in adult ([facility]) Take 1 tablet by mouth every morning (before breakfast) for 30 days. Max Daily Amount: 37.5 mg 30 tablet 0 05/26/2023 06/25/2023 ActiveStart: 05-27-2019 End: 78-39-7592hdix 40-44.9 capsules by mouth once daily in the morning phentermine (ADIPEX-P) 37.5 MG capsule Indications: Class 3 severe obesity due to excess calories without serious comorbidity with body mass index (BMI) of 40.0 to 44.9 in adult ([facility]) Take 1 capsule by mouth every morning for 30 days. 30 capsule 0 05/27/2019 06/26/2019 ActivepredniSONE 20 mg oral tablet (1 source)Start: 09-16-2020 End: 84-11-3952mqqy 3 tablets by mouth once dailypredniSONE (DELTASONE) 20 MG tablet Take 3 tablets by mouth daily for 5 days 15 tablet 0 Activepregabalin 300 mg oral capsule (20 sources)Start: 64-18-5614huji 1 capsule by mouth in the morningpregabalin (Lyrica) 300 MG capsule Indications: Idiopathic progressive polyneuropathy , Non-seasonal allergic rhinitis due to pollen TAKE 1 CAPSULE BY MOUTH IN THE MORNING AND 1 CAPSULE BY MOUTH BEFORE BEDTIME 180 capsule 07/31/2025 Active Start: 02-20-2022 End: 11-97-3747hfna 1 capsule by mouth twice dailypregabalin (LYRICA) 300 MG capsule Take 1 capsule by mouth 2 times daily. 02/20/2022 ActiveStart: 88-01-6059lggc 1 capsule by mouth three times dailypregabalin (LYRICA) 150 MG capsule Indications: Epidural abscess , Discitis of thoracic region , Infection of thoracic spine (HCC) , Peripheral polyneuropathy Take 1 capsule by mouth 3 times daily for 30 days.. 90 capsule 0 08/25/2018 ActiveraNITIdine 150 mg oral tablet (1 source)Histamine-2 Receptor AntagonistStart: 93-05-7065dnuq 1 tablet by mouth twice dailyraNITIdine (ZANTAC) 150 MG tablet Indications: Epigastric abdominal pain Take 1 tablet by mouth 2 times daily 60 tablet 3 12/09/2019 Active rimegepant 75 mg disintegrating oral tablet (20 sources)Start: 16-16-3083Bfyzrfovgh Sulfate (Nurtec) 75 MG tablet dispersible Indications: Intractable 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 Take 75 mg by mouth See administration instructions Take 1- 75mg tablet by mouth as needed at the onset of migraine. 16 tablet 11 10/31/2024 ActiveStart: 43-94-3815Ewbvtclfbb Sulfate (Nurtec) 75 MG tablet dispersible Indications: Intractable 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 (CMS/HCC) Take 75 mg by mouth See administration instructions Take 1- 75mg tablet by mouth as needed at the onset of migraine. 16 tablet 11 09/07/2024 ActiveStart: 79-07-9073Isolegujvg Sulfate (Nurtec) 75 MG tablet dispersible Indications: Intractable 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 (CMS/HCC) Take 75 mg by mouth See administration instructions. Take 1- 75mg tablet by mouth as needed at the onset of migraine. 16 tablet 11 08/20/2023 ActiveStart: 06-92-5348JLUOVN [address] 1 TABLET ON OR UNDER THE TONGUE EVERY OTHER DAY 01/02/2022 ActiverOPINIRole 1 mg oral tablet (20 sources)Nonergot Dopamine AgonistStart: 10-31-2024 End: 03-08-8956vtrh 1 tablet by mouth in the morning, then take 1 tablet by mouth in the evening, then take 1 tablet by mouth at bedtimerOPINIRole (Requip) 0.5 MG tablet Indications: Restless legs Take 1 tablet (0.5 mg) by mouth in the morning and 1 tablet (0.5 mg) in the evening and 1 tablet (0.5 mg) before bedtime. 270 tablet 3 10/31/2024 02/13/2025 Discontinued (Reorder)Start: 87-99-5340rBIEDQJlzg (Requip) 0.5 MG tablet Indications: Restless legs TAKE 1 TABLET THREE TIMES A DAY 270 tablet 3 08/24/2023 ActiveStart: 02-10-2023 rOPINIRole (REQUIP) 0.5 MG tabletStart: 04-02-2021 End: 33-44-9558omva 1 tablet by mouth three times dailyrOPINIRole (REQUIP) 1 MG tablet Indications: Restless legs Take 1 tablet by mouth 3 times daily 270tablet 1 10/10/2024 ActiveStart: 55-54-3033eCSQNTPmwn (REQUIP) 0.5 MG tablettake 1 tablet by mouth twice dailyrOPINIRole (REQUIP) 0.5 MG tablet Take 0.5 mg by mouth 2 times daily 0 Activesertraline 100 mg oral tablet (20 sources)Serotonin Reuptake InhibitorStart: 76-47-3669igvnybptzv (Zoloft) 100 MG tablet 02/25/2023 ActiveStart: 88-26-1884jfmk 2 tablets by mouth once daily sertraline (ZOLOFT) 100 MG tablet Take 2 tablets by mouth daily Currently decreasing this medication 07/30/2020 ActiveStart: 48-12-5820msvs 1 tablet by mouth once dailysertraline (ZOLOFT) 100 MG tablet Take 100 mg by mouth daily Currently decreasing this medication ActiveStart: 91-87-6503yaqp 2 tablets by mouth once dailysertraline (ZOLOFT) 50 MG tablet Take 100 mg by mouth daily 2 QD 0 07/06/2019 ActiveStart: 48-26-9572aasepavjdn (ZOLOFT) 50 MG tablet sucralfate 1000 mg oral tablet (1 source)Aluminum ComplexStart: 93-40-3824bvad 1 tablet by mouth four times daily before mealtimesucralfate (CARAFATE) 1 GM tablet Indications: Epigastric abdominal pain Take 1 tablet by mouth 4 times daily (before meals and nightly) 120 tablet 0 12/09/2019 Activesulfamethoxazole 800 mg / trimethoprim 160 mg oral tablet (8 sources)Dihydrofolate Reductase Inhibitor Antibacterial, Sulfonamide AntimicrobialStart: 04-28-2022 End: 09-12-3840kfks 1 tablet by mouth once in the morning, then take 1 tablet by mouth once at bedtimesulfamethoxazole-trimethoprim (BACTRIM DS) 800-160 MG per tablet Indications: Acute cystitis with hematuria Take 1 tablet by mouth in the morning and 1 tablet before bedtime. Do all this for 7 days. 14 tablet 0 04/28/2022 05/05/2022 ActiveStart: 01-22-2022 End: 65-96-0652nyyv 1 tablet by mouth twice dailysulfamethoxazole-trimethoprim (BACTRIM DS;SEPTRA DS) 800-160 MG per tablet Take 1 tablet by mouth 2times daily for 7 days 14 tablet 0 01/22/2022 01/29/2022 ActiveStart: 08-01-2021 End: 11-07-0612ortr 1 tablet by mouth once dailysulfamethoxazole-trimethoprim (BACTRIM) 400-80 MG per tablet Indications: Frequent UTI , Urinary urgency , Urinary frequency Take 1 tablet by mouth daily Take one tablet after intercourse 30 tablet 10/30/2021 Activesulfamethoxazole-trimethoprim (Bactrim) 400-80 MG tablet Take by mouth Activethiamine 100 mg oral tablet (6 sources)Start: 08-20-2023 End: 91-44-6919svsm 1 tablet by mouth in the morningthiamine (Vitamin B-1) 100 MG tablet Indications: Bilateral carpal tunnel syndrome , Idiopathic progressive polyneuropathy , Restless legs Take 1 tablet (100 mg) by mouth in the morning. 30 tablet 08/19/2024 ActivetiZANidine 4 mg oral tablet (14 sources)Central alpha-2 Adrenergic AgonistStart: 37-82-9870sfZVYgpgtx (ZANAFLEX) 4 MG tablet Take by mouth nightly 0 05/05/2020 Activetopiramate 50 mg oral tablet (15 sources)Start: 09-22-2023 End: 98-77-6482uefdtpqbvh 50 MG tablet 09/22/2023 09/14/2024 Discontinued (Side effects)Start: 25-00-7870wcbsdlscrt (TOPAMAX) 25 MG tabletvilazodone hydrochloride 40 mg oral tablet (8 sources)Start: 33-10-0659ubev 1 tablet by mouth once dailyvilazodone HCl (VIIBRYD) 40 MG TABS Indications: Depression with anxiety Take 1 tablet by mouth daily 30 tablet 3 05/27/2019 Active Completed/Discontinued Medications MedicationDrug Class(es)DatesSig (Normalized)Sig (Original)alendronic acid 70 mg oral tablet (2 sources)BisphosphonateStart: 07-01-2024 End: 67-36-1866nloa 1 tablet by mouth once dailyalendronate (Fosamax) 70 MG tablet 1 tablet 30 minutes before the first food, beverage or medicine of the day with plain water Orally weekly for 94 days 07/01/2024 05/24/2025 Discontinued (Therapy completed)cetirizine hydrochloride 10 mg oral capsule (20 sources)Histamine-1 Receptor AntagonistStart: 06-09-2017 End: 58-09-1674xhgaaitezi 10 mg capStart: 59-65-4465Eaowaiqtts HCl (ALL DAY ALLERGY) 10 MG CapStart: 13-02-1315xufa 1 tablet by mouth once dailycetirizine (ZYRTEC) 10 MG tablet TAKE 1 TABLET BY MOUTH DAILY. 30 tablet 4 02/11/2016 Tobwsj713 ml ciprofloxacin 2 mg/ml injection (4 sources)Quinolone AntimicrobialStart: 04-04-2025 End: 48-86-5296439 mg, IntraVENous, ONCE, 1 dose, On Thu04/04/25 at 2200, Antimicrobial Indications: Skin and Soft Tissue InfectionStart: 04-04-2025 End: 34-28-4435yqid 1 tablet by mouth twice dailyciprofloxacin (CIPRO) 500 MG tablet Take 1 tablet by mouth 2 times daily for 10 days 20 tablet 04/04/2025 04/14/2025 ActiveStart: 04-13-2021 End: 65-74-8550uipt 1 tablet by mouth twice dailyciprofloxacin (CIPRO) 250 MG tablet Indications: Acute cystitis with hematuria Take 1 tablet by mouth 2 times daily for 3 days 6 tablet 0 04/13/2021 04/16/2021 Activeclindamycin (CLEOCIN) 600 mg in sodium chloride 0.9 % 50 mL IVPB (1 source)Start: 04-04-2025 End: 11-33-0487878 mg, IntraVENous, ONCE, 1 dose, On Thu04/04/25 at 2200, Antimicrobial Indications: Skin and Soft Tissue Infectiondiclofenac sodium 0.01 mg/mg topical gel (20 sources)Nonsteroidal Anti-inflammatory DrugStart: 01-06-2023 End: 12-05-2209ctepirvxxm sodium 1 % gel 01/06/2023 05/24/2025 Discontinued (Therapy completed)Start: 30-21-2283ywuygqyewc sodium 1 % GELgadobenate dimeglumine (MULTIHANCE) injection 10 mL (2 sources)Start: 04-11-2025 End: 54-89-6386worf 1 dose intravenously once10 mL, IntraVENous, IMG ONCE PRN, 1 dose, Starting on Thu04/11/25 at 1244, Until Thu04/11/25 at 1245,OtherStart: 06-25-2022 End: 90-00-3097wkcqjxcrve dimeglumine (MULTIHANCE) injection 10 mLhydrOXYzine pamoate 50 mg oral capsule (20 sources)AntihistamineStart: 03-06-2023 End: 52-94-5783xkhnWTVsyby pamoate (Vistaril) 50 MG capsule Indications: Allergy, subsequent encounter Take 1 capsule (50 mg) by mouth as needed at bedtime for itching. 90 capsule 1 03/06/2023 03/14/2025 Discontinuedicosapent ethyl 1000 mg oral capsule (15 sources)Start: 05-17-2019 End: 17-11-6043yegs 2 capsules by mouth twice daily, then take 1 capsule by mouthIcosapent Ethyl (VASCEPA) 1 g CAPS capsule Indications: Mixed hyperlipidemia Take 2 capsules by mouth 2 times daily 120 capsule 5 05/17/2019 09/16/2020 Discontinued (LIST CLEANUP)methylPREDNISolone 125 mg injection (1 source)CorticosteroidStart: 09-16-2020 End: 19-56-2240isobbjUCAWSRQoylpz sodium (SOLU-MEDROL) injection 125 mgStart: 09-16-2020 End: 32-00-5335eeykzxRDRRRMEayfgx sodium (SOLU-MEDROL) injection 125 mg2 ml orphenadrine citrate 30 mg/ml injection (1 source)Muscle RelaxantStart: 09-16-2020 End: 66-86-3524czyqfieujiij (NORFLEX) injection 30 mg50 ml sodium chloride 9 mg/ml injection (1 source)Start: 04-04-2025 End: 51,000 mL (10.3 mL/kg), IntraVENous, at 1,935.5 mL/hr, Administer over 31 Minutes, ONCE, On Thu04/04/25 at 2200, For 1 dose Problems Active Problems Problem ClassificationProblemDateDocumented DateEpisodic/ChronicAnxiety disorders (20 sources)Anxiety; Translations: [Mixed anxiety and depressive disorder]Onset: [id number] kidney disease (20 sources)Chronic kidney disease stage 3; Translations: [Chronic renal insufficiency]Onset: 300820-07-3332DoijeryRqwduhu kidney disease (16 sources)Chronic renal insufficiency; Translations: [Chronic kidney disease] Onset: [id number] ulcer of skin (9 sources)Deep tissue pressure injury; Translations: [Pressure-induced deep tissue damage of other site]Onset: 260884-94-0496CxfvrdsNadlnoyi mellitus with complications (20 sources)Polyneuropathy due to type 2 diabetes mellitus; Translations: [Type 2 diabetes mellitus with diabetic polyneuropathy]Onset: ChronicDisorders of lipid metabolism (20 sources)Mixed hypercholesterolemia and hypertriglyceridemia; Translations: [Mixed hyperlipidemia]Onset: 06-24-2013 Resolved: 485534-85-5162DuzraqbPyzynymbmc disorders (20 sources)Gastroesophageal reflux disease; Translations: [Gastro-esophageal reflux disease without esophagitis]Onset: 710971-08-0092BqwgcymXjfupbqy of lower limb (2 sources)Closed fracture of second metatarsal bone; Translations: [Nondisplaced fracture of second metatarsal bone, right foot, initial encounter for closed fracture]48-63-3727WtejmobiJvbwghocfasro symptoms and ill-defined conditions (5 sources)Dysuria; Translations: [Dysuria]EpisodicHeadache; including migraine (20 sources)Migraine without aura, not refractory ; Translations: [Chronic migraine without aura, not intractable, without status migrainosus]Onset: 868168-01-2128OiqzvxgHkwdcxwqtafjs and screening for infectious disease (4 sources)Suspected disease caused by 2019-nCoV; Translations: [Suspected COVID-19 virus infection]EpisodicInfective arthritis and osteomyelitis (except that caused by tuberculosis or sexually transmitted disease) (20 sources)Osteomyelitis, unspecified; Translations: [Infection of thoracic spine]Onset: 369507-26-6906LgmzwevSnwfktc and fatigue (20 sources)Fatigue; Translations: [Chronic fatigue, unspecified]Onset: 456518-21-0052XmusmubYaoslxzmp; nephrosis; renal sclerosis (20 sources)Chronic glomerulonephritis; Translations: [Chronic nephritic syndrome with unspecified morphologic changes]Onset: 829187-56-5134Krqnfhj Nutritional deficiencies (20 sources)Vitamin D deficiency; Translations: [Vitamin D deficiency, unspecified]Onset: 298886-62-8517ZrymarfCxdlvhynrhirof (20 sources)Degenerative joint disease of ankle AND/OR foot; Translations: [Primary osteoarthritis, unspecifiedankle and foot]Onset: 487215-09-3641 ChronicOther acquired deformities (20 sources)Contracture of joint of left ankle; Translations: [Contracture, left ankle]Onset: 713623-30-3511CmbqiapWeoqt acquired deformities (1 source)Deformity of lower limb; Translations: [Other specified acquired deformities of unspecified lower leg]32-74-8132JatbfmhaDiahv and unspecified benign neoplasm (1 source)Lipoma of skin and subcutaneous tissue of neck; Translations: [Benign lipomatous neoplasm of skin and subcutaneous tissue of head, face and neck] 23-69-5353WrljykuyWdtjc and unspecified benign neoplasm (2 sources)Benign lipomatous neoplasm of skin and subcutaneous tissue of head, face and neck; Translations: [Benign lipomatous neoplasm of skin and subcutaneous tissue of head, face and neck]Onset: 33-46-6966FarwbhxnAtxfr circulatory disease (4 sources)Other specified symptoms and signs involving the circulatory and respiratory systems; Translations:[OTH SPEC SX SIGNS INVLV CIRC RS]Onset: 90-55-5781DucqisnhAdfgz connective tissue disease (2 sources)Other muscle spasm; Translations: [Other muscle spasm]Onset: 76-51-4396HpuyrsemKgbcc connective tissue disease (1 source)Foot pain; Translations: [...] Translations: [Disorder of kidney and ureter, unspecified]Onset: 23-28-6833NoqmwyttSwpal hereditary and degenerative nervous system conditions (20 sources)Restless legs; Translations: [Restless legs syndrome]Onset: 410007-83-0934JiuodcaPlfyw lower respiratory disease (1 source)Dyspnea; Translations: [SOB (shortness of breath)]EpisodicOther lower respiratory disease (2 sources)Snoring; Translations: [Snoring]76-40-2533SfmaczgzXlfef nervous system disorders (3 sources)Polyneuropathy, unspecified; Translations: [Polyneuropathy, unspecified]Onset: 00-72-3749HfihtocDyzyq nervous system disorders (20 sources)Peripheral nerve disease ; Translations: [Polyneuropathy, unspecified]Onset: 654104-63-0505ZfjficgMtrml nervous system disorders (20 sources)Carpal tunnel syndrome of right wrist; Translations: [Carpal tunnel syndrome, right upper limb]Onset: 752794-78-9699RolkrnlEjjhn nervous system disorders (20 sources)Idiopathic progressive polyneuropathy; Translations: [Idiopathic progressive neuropathy]Onset: 884196-50-7431RhldsoxBhsgs nervous system disorders (20 sources)Bilateral carpal tunnel syndrome; Translations: [Carpal tunnel syndrome, bilateral upper limbs]Onset: 227923-39-0024RjjsizcHuukn nervous system disorders (20 sources)Carpal tunnel syndrome of left wrist; Translations: [Carpal tunnel syndrome, left upper limb]Onset: 761003-69-2872PvetkkuZcfld nervous system disorders (20 sources)Inattention; Translations: [Attention and concentration deficit] Onset: 887704-46-0204NartzxgBkzee nervous system disorders (20 sources)Disorder of the peripheral nervous system; Translations: [Hereditary and idiopathic neuropathy, unspecified]Onset: 143040-27-1071FdupsviSnatx nervous system disorders (20 sources)Tarsal tunnel syndrome; Translations: [Tarsal tunnel syndrome, unspecified lower limb]Onset: 013844-43-6732AflllxmIhbqp nervous system disorders (4 sources)Abnormal gait; Translations: [Unsteadiness on feet]95-59-5748Wgdcqyck Other nervous system disorders (13 sources)Carpal tunnel syndrome of right wrist; Translations: [Carpal tunnel syndrome on right]Onset: Other non-epithelial cancer of skin (15 sources)Basal cell carcinoma of face; Translations: [Basal cell carcinoma of skin of face]Onset: 655192-86-1232GkoiikdIzypb non-traumatic joint disorders (4 sources)Charcot's joint, left ankle and foot; Translations: [CHARCOTS JOINT LEFT ANKLE AND FO]Onset: 18-72-3922HxdoszmPauyj non-traumatic joint disorders (3 sources)Charcot arthropathy of midfoot; Translations: [Charcot's joint, unspecified ankle and foot]28-39-2468FvfarqgDhnim non-traumatic joint disorders (20 sources)Acute arthropathy; Translations: [Arthropathy, unspecified]Onset: 125468-05-6078TeeppogTuvyg non-traumatic joint disorders (20 sources)Charcot's arthropathy; Translations: [Charcot's joint, left ankle and foot]Onset: 934063-27-6554XgdjxyjLthef non-traumatic joint disorders (1 source)Pain in left ankle and joints of left foot; Translations: [PAIN IN LEFT ANKLE]Onset: 20-12-5580LzscgxknCausm nutritional; endocrine; and metabolic disorders (2 sources)Obesity caused by energy imbalance; Translations: [Other obesity due to excess calories]29-29-4910VpgugekIttmo screening for suspected conditions (not mental disorders or infectious disease) (13 sources)Elevated C-reactive protein; Translations: [Elevated C-reactive protein (CRP)]42-14-9538Xhurr skin disorders (1 source)Mass of neck; Translations: [Localized swelling, mass and lump, neck] EpisodicOther upper respiratory disease (20 sources)Seasonal allergy; Translations: [Other seasonal allergic rhinitis] Onset: 211255-45-9156HrsrkxgPjuin upper respiratory disease (3 sources)Allergic rhinitis due to pollen; Translations: [Allergic rhinitis due to pollen]72-91-0266KsxekdhTyhwfyzd codes; unclassified (20 sources)Obstructive sleep apnea syndrome; Translations: [Obstructive sleep apnea (adult) (pediatric)]Onset: 162373-28-1763IfpqlozIvcdvozm codes; unclassified (20 sources)Hypersomnia; Translations: [Hypersomnia, unspecified]Onset: 483016-22-6191KvowqetFftvtjbk codes; unclassified (2 sources)Localized edema; Translations: [Localized edema]Onset: 01-06-2023 EpisodicResidual codes; unclassified (2 sources)Edema, generalized; Translations: [Generalized edema]04-10-2025 EpisodicSepticemia (except in labor) (20 sources)Sepsis; Translations: [Methicillin resistant Staphylococcus aureus infection]Onset: 08-15-2018 Resolved: 995058-32-4278QptymjgiRijw and subcutaneous tissue infections (4 sources)Infection of toe ; Translations: [Local infection of the skin and subcutaneous tissue, unspecified]28-37-3258NvdjazgrQxtyzwzqwwi; intervertebral disc disorders; other back problems (20 sources)Discitis, unspecified, thoracic region; Translations: [Degeneration of thoracic intervertebral disc]Onset: 382380-00-9872PrxxcvuMiythsm disorders (20 sources)Thyroid nodule; Translations: [Nontoxic single thyroid nodule]Onset: 986184-95-1101VreghzxFnhehkhszytd (1 source)Pressure-induced deep tissue damage of other site; Translations: [Pressure-induced deep tissue damage of other site]Onset: 95-88-2449Dyzcnyq tract infections (20 sources)Acute cystitis; Translations: [Acute cystitis with hematuria]Onset: 53-80-8645DrynzqapGspdo infection (1 source)Viral disease; Translations: [Viral infection, unspecified]Episodic Past or Other Problems Problem ClassificationProblemDateDocumented DateEpisodic/ChronicAbdominal pain (20 sources)Female genital organ symptoms; Translations: [Pelvic and perineal pain]Onset: 30-14-4736YssjsgrkZhvedoigl infection; unspecified site (20 sources)Methicillin resistant Staphylococcus aureus infection; Translations: [Bacteremia due to Methicillinresistant Staphylococcus aureus] Resolved: 210103-61-8520LmfovgbiTkzysafrlz and other anemia (20 sources)Anemia; Translations: [Anemia, unspecified]Onset: 2022 36-69-8463BggmpnulAejdwxyp mellitus without complication (20 sources)Hyperglycemia; Translations: [Hyperglycemia, unspecified]Onset: 806982-86-3955IaragwsqBdyvt and electrolyte disorders (20 sources)Lactic acidosis; Translations: [Acidosis]Onset: 08-15-2018 Resolved: 215520-07-5471DeebajgzMsolxptm of lower limb (20 sources)Closed fracture of second metatarsal bone; Translations: [Nondisplaced fracture of second metatarsal bone, left foot, initial encounter for closed fracture]Onset: 08-62-1902IpxmypllYzqbjegli arthritis and osteomyelitis (except that caused by tuberculosis or sexually transmitted di sease) (20 sources)Suppurative arthritis; Translations: [Infective arthritis]Onset: 374207-05-1291MhsgdwehQlatuwl and fatigue (20 sources)Fatigue; Translations: [Other fatigue]Onset: EpisodicMedical examination/evaluation (2 sources)Encounter for general adult medical examination without abnormal findings; Translations: [Encounterfor general adult medical examination without abnormal findings]Onset: 02-22-9369TgixwtmdHzwv disorders (20 sources)Depressive disorder; Translations: [Major depressive disorder, single episode, unspecified]Onset: 07-20-2012 Resolved: 917934-43-7726UraskhbSqdlswriw of unspecified nature or uncertain behavior (20 sources)Neoplasm of uncertain behavior of skin; Translations: [Neoplasm of uncertain behavior of skin]Onset: 460954-24-6714ZinwkgiuYcsnn 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 (20 sources)Extradural and subdural abscess, unspecified; Translations: [Epidural abscess]Onset: 313403-36-2829IbtjlzinOeofe connective tissue disease (1 source)Spasm; Translations: [Spasm of muscle]EpisodicOther connective tissue disease (20 sources)Pain in left foot; Translations: [Pain in left foot]Onset: 648813-89-6077MmquxutqPwtrl connective tissue disease (20 sources)Pain in limb; Translations: [Pain in unspecified limb]Onset: 333288-63-3972TdaugekqHcbhd connective tissue disease (20 sources)Muscle pain; Translations: [Myalgia, unspecified site]Onset: 480695-35-9303CyelosnmSqwov connective tissue disease (20 sources)Spasm of cervical paraspinous muscle; Translations: [Other muscle spasm]Onset: 354861-13-1869LgtasbiyUxukd connective tissue disease (20 sources)Bilateral trochanteric bursitis; Translations: [Trochanteric bursitis, right hip]Onset: 085528-99-5660CfeucimcMdbrr connective tissue disease (1 source)Pain in right foot; Translations: [Pain in right foot]Onset: 29-40-8393WydpicpqSedqj diseases of kidney and ureters (3 sources)Chronic renal insufficiency; Translations: [Disorder of kidney and ureter, unspecified]Onset: 763751-23-3020SxojzunrNziyj nervous system disorders (20 sources)Metabolic encephalopathy; Translations: [Metabolic encephalopathy] Resolved: 189982-73-9902TqklauoMstuu nervous system disorders (20 sources)Skin sensation disturbance; Translations: [Unspecified disturbances of skin sensation]Onset: 669747-06-7087MaadrsmlNtudu non-epithelial cancer of skin (20 sources)Basal cell carcinoma of skin; Translations: [Basal cell carcinoma of skin, unspecified]Onset: 040829-01-6463FmqnqftxXvdil screening for suspected conditions (not mental disorders or infectious disease) (20 sources)Elevated C-reactive protein; Translations: [Elevated C-reactive protein (CRP)]Onset: 298403-46-6292XokmdgtyTxelhpiz codes; unclassified (20 sources)Insomnia; Translations: [Insomnia, unspecified]Onset: 03-08-2023 25-52-7088YqlderpsKkhdhuekzwl; intervertebral disc disorders; other back problems (20 sources)Radiculopathy, cervical region; Translations: [Acute thoracic back pain]Onset: 86-68-814747136490-03-8545ZnsncdbpAusvdhyfndhm (1 source)Patient encounter -38-2498 Results Test NameValueInterpretationReference RangeFacilityHemoglobin A1Con 08-03-2025 Glucose [Mass/Vol]103 mg/dLNormalWvumedicine Barnesville HospitalComment on above:Result Comment: The ADA and AACC recommend providing the estimated average glucose result to permit better patient understanding of their HBA1c result.Performed By: #### MORPHX, CRP, BMP, CBC, SED #### [facility] [address] [place], [place] [id number] Mud Boss: Emily George MDHbA1c (Bld) [Mass fraction]5.2 %Normal4.0-6.0W[facility]umed[facility] Barnesville HospitalComment on above:Performed By: #### MORPHX, CRP, BMP, CBC, SED #### [facility] [address] [place], [place] [id number] Mud Boss: Dayan Mirza Metabolic Panelon [id number] gap [Moles/Vol]9 mmol/L9 - 17 mmol/LBon [facility] HealthCalcium [Mass/Vol]9.7 mg/dL8.6 - 10.4 mg/dLBon Secours [facility] Hospitaly HealthChloride [Moles/Vol]102 mmol/L98 - 107 mmol/LBon [facility] HealthCO2 [Moles/Vol]27 mmol/L20 - 31 mmol/LBon [facility] HealthCreatinine [Mass/Vol]1.5 mg/dLHigh0.5 - 0.9 mg/dLBon [facility] Centerours [facility]y HealthEst, Glom Filt Lhnr49Yfz- PINFBon [facility] HospitalComment on above: These results are not [...] secretion. Glucose [Mass/Vol]92 mg/dL70 - 99 mg/dLBon [facility] HospitalInterpretation and review of laboratory resultsAbnormalCentra Virginia Baptist HospitalPotassium [Moles/Vol]4.3 mmol/L3.7 - 5.3 mmol/LBon [facility] HospitalSodium [Moles/Vol] 138 mmol/L135 - 144 mmol/LBon [facility] HospitalUrea nitrogen [Mass/Vol]17 mg/dL6 - 20 mg/dLBon [facility] CenterBasic Metabolic Profon [id number] gap [Moles/Vol]9 mmol/LNormal9-17[facility] Comment on above:Performed By: #### MORPHX, CRP, BMP, CBC, SED #### [facility] [address] [place] [address] Mud Boss: SHER Mirzaalcium [Mass/Vol]9.7 mg/dLNormal8.6-10.4W[facility] Barnes[facility] HospitalComment on above:Performed By: #### MORPHX, CRP, BMP, CBC, SED #### [facility] [address] [place] [address] Mud Boss: SHER Mirzahloride [Moles/Vol]102 mmol/QIgycae64-094YibrwWvumedicine Barnesville HospitalComment on above:Performed By: #### MORPHX, CRP, BMP, CBC, SED #### [facility] [address] [place] [address] Mud Boss: SHER MirzaO2 [Moles/Vol]27 mmol/QIxmuzm97-77VyliaWvumedicine Barnesville HospitalComment on above:Performed By: #### MORPHX, CRP, BMP, CBC, SED #### [facility] [address] [place] [address] Mud Boss: SHER Mirzareatinine [Mass/Vol]1.5 mg/dLHigh0.5-0.9[facility] HospitalComment on above:Performed By: #### MORPHX, CRP, BMP, CBC, SED #### [facility] [address] [place] [address] Mud Boss: Emily George MDGFR/1.73 sq M.predicted among non-blacks MDRD (S/P/Bld) [Vol rate/Area]43 mL/min/{1.73_m2}Low>60W[facility] HospitalComment on above:Result Comment: These results are [...] #### MORPHX, CRP, BMP, CBC, SED #### [facility] [address] [place] [address] Mud Boss: Emily George MDGlucose [Mass/Vol]92 mg/nTLqcwoi39-00BafabKettering HealthComment on above:Performed By: #### MORPHX, CRP, BMP, CBC, SED #### [facility] [address] [place] [address] Mud Boss: ANNMARIE Mirzaotassium [Moles/Vol]4.3 mmol/LNormal3.7-5.3MKettering HealthComment on above:Performed By: #### MORPHX, CRP, BMP, CBC, SED #### [facility] [address] [place] [id number] Mud Boss: MARIKA Mirzaodium [Moles/Vol]138 mmol/RHufuyz561-305AviqxWvumedicine Barnesville HospitalComment on above:Performed By: #### MORPHX, CRP, BMP, CBC, SED #### [facility] [address] [place] [address] Mud Boss: Emily George MDUrea nitrogen [Mass/Vol]17 mg/dLNormal6-20[facility] HospitalComment on above:Performed By: #### MORPHX, CRP, BMP, CBC, SED #### [facility] [address] [place] [address] Mud Boss: Emily George MDBauofl health - [facility] Metabolic Panelon [id number] gap [Moles/Vol]8 mmol/LLow9 - 17 mmol/LBon [facility] HealthCalcium [Mass/Vol] 10.1 mg/dL8.6 - 10.4 mg/dLBon [facility] HealthChloride [Moles/Vol]100 mmol/L 98 - 107 mmol/LBon [facility] HospitalCO2 [Moles/Vol]29 mmol/L20 - 31 mmol/LBon [facility] HospitalCreatinine [Mass/Vol]1.4 mg/dLHigh0.5 - 0.9 mg/dLBon [facility] HospitalEst, Glom Filt Xitf84Wmc- PINFBon [facility] Comment on above: These results are [...] secretion. Glucose [Mass/Vol]87 mg/dL70 - 99 mg/dLBon [facility] HealthPotassium [Moles/Vol]4.4 mmol/L3.7 - 5.3 mmol/LBon [facility] HospitalSodium [Moles/Vol] 137 mmol/L135 - 144 mmol/LBon [facility] HospitalUrea nitrogen [Mass/Vol]19 mg/dL6 - 20 mg/dLBon [facility] HospitalBasic Metabolic Profon [id number] gap [Moles/Vol]8 mmol/LLow9-17[facility] HospitalComment on above:Performed By: #### MORPHX, CRP, BMP, CBC, SED #### [facility] [address] [place] [id number] Mud Boss: SHER Mirzaalcium [Mass/Vol]10.1 mg/dLNormal8.6-10.4[facility] HospitalComment on above:Performed By: #### MORPHX, CRP, BMP, CBC, SED #### [facility] [address] [place] [id number] Mud Boss: SHER Mirzahloride [Moles/Vol]100 mmol/OUlqmso41-050VbnevWvumedicine Barnesville HospitalCommckenzie memorial hospital on above:Performed By: #### MORPHX, CRP, BMP, CBC, SED #### [facility] [address] [place] [address] Mud Boss: Emily George MDCO2 [Moles/Vol]29 mmol/DQbxdeh08-70ZyxywWvumedicine Barnesville HospitalComment on above:Performed By: #### MORPHX, CRP, BMP, CBC, SED #### [facility] [address] [place] [id number] Mud Boss: SHER Mirzareatinine [Mass/Vol]1.4 mg/dLHigh0.5-0.9[facility] on above:Performed By: #### MORPHX, CRP, BMP, CBC, SED #### [facility] [address] [place] [id number] Mud Boss: Emily George MDGFR/1.73 sq M.predicted among non-blacks MDRD (S/P/Bld) [Vol rate/Area]47 mL/min/{1.73_m2}Low>60[facility] HospitalCommckenzie memorial hospital on above:Result Comment: These results are [...] #### MORPHX, CRP, BMP, CBC, SED #### [facility] [address] [place] [address] Mud Boss: Emily George MDGlucose [Mass/Vol]87 mg/vNXowewh16-09QlmrtKettering HealthComment on above:Performed By: #### MORPHX, CRP, BMP, CBC, SED #### [facility] [address] [place] [address] Mud Boss: ANNMARIE Mirzaotassium [Moles/Vol]4.4 mmol/LNormal3.7-5.3MKettering HealthComment on above:Performed By: #### MORPHX, CRP, BMP, CBC, SED #### [facility] [address] [place] [address] Mud Boss: MARIKA Mirzaodium [Moles/Vol]137 mmol/LOhrnfz300-878PtduvWvumedicine Barnesville HospitalComment on above:Performed By: #### MORPHX, CRP, BMP, CBC, SED #### [facility] [address] [place] [address] Mud Boss: mEily George MDUrea nitrogen [Mass/Vol]19 mg/dLNormal6-20[facility] HospitalComment on above:Performed By: #### MORPHX, CRP, BMP, CBC, SED #### [facility] [address] [place] [address] Mud Boss: Emily George MDC-Reactive Proteinon [id number] High sensitivity method [Mass/Vol]16.1 mg/LHigh0.0 - 5.0 mg/LBon [facility] CRP [Mass/Vol]16.1 mg/LHigh0.0-5.0W[facility] HospitalCommckenzie memorial hospital on above: Performed By: #### MORPHX, CRP, BMP, CBC, SED #### [facility] [address] [place] [address] Mud Boss: Angy Mirza 58-21-4279Huxqbvrfyof distribution width (RBC) [Ratio]17.1 %High12.1 - 15.2 %[facility] HospitalHematocrit (Bld) [Volume fraction]34.3 %Low36.0 - 46.0 %[facility] HospitalHemoglobin (Bld) [Mass/Vol]11.0 g/dLLow12.0 - 16.0 g/dLBon [facility] HospitalInterpretation and review of laboratory resultsAbnormalRiverside [facility] (RBC) [Entitic mass]28.2 pg26.0 - 34.[address] Alb[facility] HospitalHC (RBC) [Mass/Vol]32.1 g/dL 31.0 - 37.0 g/dLBon [facility] CenterV (RBC) [Entitic vol]87.9 fL80.0 - 100.0 fLCentra Virginia Baptist HospitalPlatelet mean volume (Bld) [Entitic vol]11.4 fL 6.0 - 12.0 fLCentra Virginia Baptist HospitalPlatelets (Bld) [#/Vol]218 10*3/uLBon [facility] HospitalRBC (Bld) [#/Vol]3.90 10*6/uLLow4.00 - 5.20 m/uLCentra Virginia Baptist HospitalWBC other (Bld) [#/Vol]9.9Bon [facility] CenterErythrocyte distribution width (RBC) [Ratio]17.1 %High12.1-15.2Mer[facility] Hospital BiloxiComment on above:Performed By: #### MORPHX, CRP, BMP, CBC, SED #### [facility] [address] [place] [address] Mud Boss: Emily George MDHematocrit (Bld) [Volume fraction]34.3 %Low 36.0-46.0[facility] HospitalComment on above:Performed By: #### MORPHX, CRP, BMP, CBC, SED #### [facility] [address] [place] [id number] Mud Boss: Emily George MDHemoglobin (Bld) [Mass/Vol]11.0 g/dLLow12.0-16.0 [facility] HospitalComment on above:Performed By: #### MORPHX, CRP, BMP, CBC, SED #### [facility] [address] [place] [address] Mud Boss: ELISABET MirzaCH (RBC) [Entitic mass]28.2 skZtyswg88.0-34.0 [facility] HospitalComment on above:Performed By: #### MORPHX, CRP, BMP, CBC, SED #### [facility] [address] [place] [id number] Mud Boss: VINCENT MirzaC (RBC) [Mass/Vol]32.1 g/zEGeuaug83.0-37.0[facility] HospitalComment on above:Performed By: #### MORPHX, CRP, BMP, CBC, SED #### [facility] [address] [place] [id number] Mud Boss: ELISABET MirzaCV (RBC) [Entitic vol]87.9 cAJzdmfh15.0-100.0 [facility] HospitalComment on above:Performed By: #### MORPHX, CRP, BMP, CBC, SED #### [facility] [address] [place] [id number] Mud Boss: ANNMARIE Mirzalatelet mean volume (Bld) [Entitic vol]11.4 fL Normal6.0-12.0[facility] HospitalComment on above:Performed By: #### MORPHX, CRP, BMP, CBC, SED #### [facility] [address] [place] [id number] Mud Boss: Terrence Mirza (Bld) [#/Vol]218 10*3/yFDwqkez124-092 [facility] HospitalCommckenzie memorial hospital on above:Performed By: #### MORPHX, CRP, BMP, CBC, SED #### [facility] [address] [place], [place] [id number] Mud Boss: ELMO Mirza (Bld) [#/Vol]3.90 10*6/uLLow4.00-5.20[facility] on above:Performed By: #### MORPHX, CRP, BMP, CBC, SED #### [facility] [address] [place] [address] Mud Boss: LLOYD Mirza (Bld) [#/Vol]9.9 10*3/uLNormal3.5-11.0[facility] on above:Performed By: #### MORPHX, CRP, BMP, CBC, SED #### [facility] [address] [place], [place] [id number] Mud Boss: Kiara Mirza Panel Informationon [id number] and review of laboratory resultsAbPioneer Community Hospital of Patrickdimentation Rateon [id number] Photometric method (Bld) [Velocity]42HighCentra Virginia Baptist HospitalInterpretation and review of laboratory resultsAbSanford USD Medical CenterSedimentation Rate42 mm/HrHigh0-20[facility] HospitalCommckenzie memorial hospital on above:Performed By: #### MORPHX, CRP, BMP, CBC, SED #### [facility] [address] [place] [address] Mud Boss: SHER Mirzareatinine, Random Urineon [id number] (U) [Mass/Vol]52.4 mg/dL28.0 - 217.0 mg/dLBon Secours Mercy HealthComment on above:Reference range defined for 1st morning urineCreatinine,Random Uron 95-37-3857Ibbskazmxr [Mass/Vol]52.4 mg/hUUjjtvs00.0-217.0[facility] Comment on above:Result Comment: Reference range defined for 1st morning urine Performed By: #### MORPHX, CRP, BMP, CBC, SED #### [facility] [address] [place] [address] Mud Boss: Kiara Mirza Panel Informationon [id number] [facility], Intacton 14-17-3368Bnqnfibqbm.intact [Mass/Vol]40.0 pg/mL17.9 - 58.6 pg/mLBon [facility] HospitalBon [facility], Nwcglk65.0 pg/mL Uhrdka19.9-58.6MKettering HealthComment on above:Performed By: #### MORPHX, CRP, BMP, CBC, SED #### [facility] [address] [place] [address] Mud Boss: Emily George MDProtein, urine, randomon [id number] (U) [Mass/Vol]mg/dLmg/dLBon [facility] Perrysburg HospitalComment on above:No normal range established.Protein,Tot,Isleta Uron 38-01-0460Iqy Prot. Conc.<4NormalWvumedicine Barnesville HospitalComment on above:Result Comment: No normal range established.Performed By: #### MORPHX, CRP, BMP, CBC, SED #### [facility] [address] [place] [address] Mud Boss: LASHAY Mirzaenal Function Panelon [id number] [Mass/Vol]4.2 g/dL3.5 - 5.2 g/dLBon [facility] HospitalAnion gap [Moles/Vol]12 mmol/L9 - 17 mmol/LBon [facility] HospitalCalcium [Mass/Vol]9.2 mg/dL8.6 - 10.4 mg/dLBon [facility] HospitalChloride [Moles/Vol]99 mmol/L98 - 107 mmol/LBon [facility] HospitalCO2 [Moles/Vol]24 mmol/L20 - 31 mmol/LBon [facility] HospitalCreatinine [Mass/Vol]1.3 mg/dLHigh0.5 - 0.9 mg/dLBon [facility] Est, Glom Filt Rjjs76Ejh- PINFBon [facility] HospitalComment on above: These results are not [...] that affects renal tubular secretion. Glucose [Mass/Vol]110 mg/hACsee75 - 99 mg/dLBon [facility] Interpretation and review of laboratory resultsAbnormalBon [facility] Phosphate [Mass/Vol]3.9 mg/dL2.6 - 4.5 mg/dLBon [facility] HospitalPotassium [Moles/Vol]4.5 mmol/L3.7 - 5.3 mmol/LBon [facility] HospitalSodium [Moles/Vol] 135 mmol/L135 - 144 mmol/LBon [facility] HospitalUrea nitrogen [Mass/Vol]23 mg/dLHigh6 - 20 mg/dLBon [facility] CenterAlbumin [Mass/Vol]4.2 g/dLNormal3.5-5.2MercOrchard HospitalComment on above:Performed By: #### MORPHX, CRP, BMP, CBC, SED #### [facility] [address] [place] [address] Mud Boss: Myles Mirza gap [Moles/Vol]12 mmol/LNormal9-17[facility] HospitalCommckenzie memorial hospital on above:Performed By: #### MORPHX, CRP, BMP, CBC, SED #### [facility] [address] [place] [address] Mud Boss: SHER Mirzaalcium [Mass/Vol]9.2 mg/dLNormal8.6-10.4W[facility] Barnesville HospitalComment on above:Performed By: #### MORPHX, CRP, BMP, CBC, SED #### [facility] [address] [place] [phone] Mud Boss: SHER Mirzahloride [Moles/Vol]99 mmol/QTbzgoy24-035GdrztWvumedicine Barnesville HospitalCommckenzie memorial hospital on above:Performed By: #### MORPHX, CRP, BMP, CBC, SED #### [facility] [address] [place] [phone] Mud Boss: SHER MirzaO2 [Moles/Vol]24 mmol/CXukrcr20-18AasnlWvumedicine Barnesville HospitalCommckenzie memorial hospital on above:Performed By: #### MORPHX, CRP, BMP, CBC, SED #### [facility] [address] [place] [address] Mud Boss: SHER Mirzareatinine [Mass/Vol]1.3 mg/dLHigh0.5-0.9[facility] on above:Performed By: #### MORPHX, CRP, BMP, CBC, SED #### [facility] [address] [place] [phone] Mud Boss: Emily George MDGFR/1.73 sq M.predicted among non-blacks MDRD (S/P/Bld) [Vol rate/Area]51 mL/min/{1.73_m2}Low>60[facility] HospitalCommckenzie memorial hospital on above:Result Comment: These results are [...] #### MORPHX, CRP, BMP, CBC, SED #### [facility] [address] [place] [address] Mud Boss: Emily George MDGlucose [Mass/Vol]110 mg/dVFund14-25EkjuiKettering HealthComment on above:Performed By: #### MORPHX, CRP, BMP, CBC, SED #### [facility] [address] [place] [address] Mud Boss: ANNMARIE Mirzahosphorus, Inorg.3.9 mg/dLNormal2.6-4.5[facility] HospitalComment on above:Performed By: #### MORPHX, CRP, BMP, CBC, SED #### [facility] [address] [place] [address] Mud Boss: ANNMARIE Mirzaotassium [Moles/Vol]4.5 mmol/LNormal3.7-5.3MKettering HealthComment on above:Performed By: #### MORPHX, CRP, BMP, CBC, SED #### [facility] [address] [place] [address] Mud Boss: MARIKA Mirzaodium [Moles/Vol]135 mmol/NFblsby302-302UmraiWvumedicine Barnesville HospitalComment on above:Performed By: #### MORPHX, CRP, BMP, CBC, SED #### [facility] [address] [place] [address] Mud Boss: Emily George MDUrea nitrogen [Mass/Vol]23 mg/dLHigh6-20[facility] HospitalComment on above:Performed By: #### MORPHX, CRP, BMP, CBC, SED #### [facility] [address] [place] [address] Mud Boss: Emily George MDVitamin D 25 Hydroxyon [id number]-qzhpcadxuedqwk D3 [Mass/Vol]29.2 ng/mLLow30.0 - 100.0 ng/mLCentra Virginia Baptist HospitalComment on above: Reference Range: Vitamin D status Range Deficiency <20 ng/mL Mild Deficiency 20-30 ng/mL Sufficiency 30-100 ng/mL Toxicity >100 ng/mL Interpretation and review of laboratory resultsAbnormalBon [facility] Bon [facility] HospitalVitamin D 25 OHon [id number] D 25 OH29.2 ng/mLLow 30.0-100.0[facility] HospitalCommckenzie memorial hospital on above:Result Comment: Reference Range: Vitamin D status Range Deficiency <20 ng/mL Mild Deficiency 20-30 ng/mL Sufficiency 30-100 ng/mL Toxicity >100 ng/mLPerformed By: #### MORPHX, CRP, BMP, CBC, SED #### [facility] [address] [place] [address] Mud Boss: ARPAN Mirza CERVICAL SPINE COMPLETE 4-5 VIEWSon [...] BY: Gregorio Davila, DONormalNot AvailableBasic Metabolic Panelon [id number] gap [Moles/Vol]12 mmol/L9 - 17 mmol/LBon [facility] HospitalCalcium [Mass/Vol]9.3 mg/dL8.6 - 10.4 mg/dLBon [facility] Chloride [Moles/Vol]104 mmol/L98 - 107 mmol/LBon [facility] HospitalCO2 [Moles/Vol]22 mmol/L20 - 31 mmol/LBon [facility] HospitalCreatinine [Mass/Vol] 1.3 mg/dLHigh0.5 - 0.9 mg/dLBon [facility] HospitalEst, Glom Filt Vryv51Kex- PINFBon [facility] HospitalComment on above: These results are not [...] that affects renal tubular secretion. Glucose [Mass/Vol]131 mg/hZCeyl13 - 99 mg/dLBon [facility] HospitalPotassium [Moles/Vol]4.4 mmol/L3.7 - 5.3 mmol/LBon [facility] HospitalSodium [Moles/Vol] 138 mmol/L135 - 144 mmol/LBon [facility] HospitalUrea nitrogen [Mass/Vol]17 mg/dL6 - 20 mg/dLBon [facility] HospitalBasic Metabolic Profon [id number] gap [Moles/Vol]12 mmol/LNormal9-17[facility] HospitalComment on above: Performed By: #### MORPHX, CRP, BMP, CBC, SED #### [facility] [address] [place] [address] Mud Boss: SHER Mirzaalcium [Mass/Vol]9.3 mg/dLNormal8.6-10.4[facility] HospitalComment on above:Performed By: #### MORPHX, CRP, BMP, CBC, SED #### [facility] [address] [place] [phone] Mud Boss: SHER Mirzahloride [Moles/Vol]104 mmol/JUrtdex07-725UfhldWvumedicine Barnesville HospitalCommckenzie memorial hospital on above:Performed By: #### MORPHX, CRP, BMP, CBC, SED #### [facility] [address] [place] [phone] Mud Boss: SHER MirzaO2 [Moles/Vol]22 mmol/IMzpdbl84-02SfioiWvumedicine Barnesville HospitalComment on above:Performed By: #### MORPHX, CRP, BMP, CBC, SED #### [facility] [address] [place] [phone] Mud Boss: SHER Mirzareatinine [Mass/Vol]1.3 mg/dLHigh0.5-0.9[facility] HospitalCommckenzie memorial hospital on above:Performed By: #### MORPHX, CRP, BMP, CBC, SED #### [facility] [address] [place] [address] Mud Boss: Emily George MDGFR/1.73 sq M.predicted among non-blacks MDRD (S/P/Bld) [Vol rate/Area]52 mL/min/{1.73_m2}Low>60[facility] HospitalComment on above:Result Comment: These results are [...] #### MORPHX, CRP, BMP, CBC, SED #### [facility] [address] [place] [phone] Mud Boss: Emily George MDGlucose [Mass/Vol]131 mg/jKSqdb97-28GnkxgKettering HealthComment on above:Performed By: #### MORPHX, CRP, BMP, CBC, SED #### [facility] [address] [place] [phone] Mud Boss: ANNMARIE Mirzaotassium [Moles/Vol]4.4 mmol/LNormal3.7-5.3MKettering HealthCommckenzie memorial hospital on above:Performed By: #### MORPHX, CRP, BMP, CBC, SED #### [facility] [address] [place] [address] Mud Boss: MARIKA Mirzaodium [Moles/Vol]138 mmol/AGafcia479-910CswcaWvumedicine Barnesville HospitalCommckenzie memorial hospital on above:Performed By: #### MORPHX, CRP, BMP, CBC, SED #### [facility] [address] [place] [address] Mud Boss: Emily George MDUrea nitrogen [Mass/Vol]17 mg/dLNormal6-20[facility] HospitalComment on above:Performed By: #### MORPHX, CRP, BMP, CBC, SED #### [facility] [address] [place] [address] Mud Boss: SHER Mirza-Reactive Proteinon [id number] High sensitivity method [Mass/Vol]6.2 mg/LHigh0.0 - 5.0 mg/LBon [facility] CRP [Mass/Vol]6.2 mg/LHigh0.0-5.0W[facility] HospitalComment on above: Performed By: #### MORPHX, CRP, BMP, CBC, SED #### [facility] [address] [place] [phone] Mud Boss: SHER MirzaBCon 99-72-6985Qrilrfhmntc distribution width (RBC) [Ratio]19.4 %High12.1 - 15.2 %Bon [facility] HospitalHematocrit (Bld) [Volume fraction]32.3 %Low36.0 - 46.0 %[facility] Baptist HospitalHemoglobin (Bld) [Mass/Vol]9.9 g/dLLow12.0 - 16.0 g/dLBon [facility] HospitalInterpretation and review of laboratory resultsAbnormalBon [facility] CenterH (RBC) [Entitic mass]28.0 pg26.0 - 34.0 pgBon [facility] CenterHC (RBC) [Mass/Vol]30.7 g/dL Low31.0 - 37.0 g/dLBon Secours Mercy HealthMCV (RBC) [Entitic vol]91.2 fL80.0 - 100.0 fLBon [facility] HospitalPlatelet mean volume (Bld) [Entitic vol]11.7 fL 6.0 - 12.0 fLBon [facility] HealthPlatelets (Bld) [#/Vol]154 10*3/uLBon [facility] HospitalRBC (Bld) [#/Vol]3.54 10*6/uLLow4.00 - 5.20 m/uLBon [facility] HospitalWBC other (Bld) [#/Vol]3.8Bon [facility] Medical CenterErythrocyte distribution width (RBC) [Ratio]19.4 %High12.1-15.2MKettering HealthComment on above:Performed By: #### MORPHX, CRP, BMP, CBC, SED #### [facility] [address] [place] [address] Mud Boss: Emily George MDHematocrit (Bld) [Volume fraction]32.3 %Low 36.0-46.0[facility] HospitalComment on above:Performed By: #### MORPHX, CRP, BMP, CBC, SED #### [facility] [address] [place] [address] Mud Boss: Emily George MDHemoglobin (Bld) [Mass/Vol]9.9 g/dLLow12.0-16.0 [facility] HospitalComment on above:Performed By: #### MORPHX, CRP, BMP, CBC, SED #### [facility] [address] [place] [address] Mud Boss: ELISABET MirzaCH (RBC) [Entitic mass]28.0 bcPglfin75.0-34.0 [facility] HospitalCommckenzie memorial hospital on above:Performed By: #### MORPHX, CRP, BMP, CBC, SED #### [facility] [address] [place] [address] Mud Boss: VINCENT MirzaC (RBC) [Mass/Vol]30.7 g/dLLow31.0-37.0[facility] HospitalComment on above:Performed By: #### MORPHX, CRP, BMP, CBC, SED #### [facility] [address] [place] [address] Mud Boss: ELISABET MirzaCV (RBC) [Entitic vol]91.2 gQZodsro63.0-100.0 [facility] HospitalComment on above:Performed By: #### MORPHX, CRP, BMP, CBC, SED #### [facility] [address] [place] [phone] Mud Boss: aHja Mirza mean volume (Bld) [Entitic vol]11.7 fL Normal6.0-12.0[facility] HospitalComment on above:Performed By: #### MORPHX, CRP, BMP, CBC, SED #### [facility] [address] [place] [address] Mud Boss: Terrence Mirza (Bld) [#/Vol]154 10*3/pCXufkzo643-035 [facility] HospitalCommckenzie memorial hospital on above:Performed By: #### MORPHX, CRP, BMP, CBC, SED #### [facility] [address] [place] [address] Mud Boss: ELMO Mirza (Bld) [#/Vol]3.54 10*6/uLLow4.00-5.20[facility] HospitalComment on above:Performed By: #### MORPHX, CRP, BMP, CBC, SED #### [facility] [address] [place] [address] Mud Boss: LLOYD Mirza (Bld) [#/Vol]3.8 10*3/uLNormal3.5-11.0[facility] HospitalComment on above:Performed By: #### MORPHX, CRP, BMP, CBC, SED #### [facility] [address] [place] [address] Mud Boss: ELISABET MirzaORPHOLOGY CHECKon 60-68-2069Pytlqhamdb Rehan (Bld) [Interp]MODERATE ANISOCYTOSISBon [facility] Health System Morphology Checkon 96-46-8499Ylnphngwfg Rehan (Bld) [Interp]MODERATENormalMerElmhurst Hospital CenterComment on above:Result Comment: ANISOCYTOSISPerformed By: #### MORPHX, CRP, BMP, CBC, SED #### [facility] [address] [place] [phone] Mud Boss: Emily George MDNo Panel Informationon [id number] and review of laboratory resultsAbnormalBon Secours Health SystemSedimentation Rateon 66-68-1683Jmjhxhcurwqmi Rate19 mm/HrNormal0-20 [facility] HospitalCommckenzie memorial hospital on above:Performed By: #### MORPHX, CRP, BMP, CBC, SED #### [facility] [address] [place] [address] Mud Boss: Emily George MDESR Photometric method (Bld) [Velocity]19Bon [facility] CenterCom Metabolic Profon 04-14-2025 Albumin [Mass/Vol]4.2 g/dLNormal3.5-5.2MKettering HealthCommckenzie memorial hospital on above: Performed By: #### LIPR, GLYHGB ####[facility] [address] [place], [place] [phone] Lab Director: Placido Pierce MD#### CP ####[facility] [address] [place] [address] Lab Director: Emily George MD#### INSU ####[facility] [address]jp[address]hm[address] [place] [address] Lab Director: Placido Pierce, [facility] [address] [place], [place] [phone] Director: Emily George MD Albumin/Glob Ratio1.1Jtcrew0.0-2.5W[facility]ville HospitalComment on above: Performed By: #### LIPR, GLYHGB ####[facility] [address]qi[address] [place] [address] Lab Director: Placido Pierce MD#### CP ####[facility] Nei[address] [place], [place] [phone] Director: Emily George MD#### INSU ####[facility] Odbdhdsykgbr05[address] [place], [place] [phone] Director: Placido Pierce, [facility] Wrq9768 [place], [place] [phone] Director: Emily George MD Alkaline Afvn605 U/SUzfh95-344PkgqtWvumedicine Barnesville HospitalComment on above:Performed By: #### KINDRA GLYHGB ####[facility] [address]ogubj[address] [place] [address] Lab Director: Placido Pierce MD#### CP ####[facility] Nap[address] [place], [place] [phone] Director: Emily George MD#### INSU ####[facility] Y[address]iusfetiate33[address] [place] [address] Lab Director: Placido Pierce, [facility] Hqf[address] [place], [place] [phone] Director: Emily George MD ALT [Catalytic activity/Vol]23 U/LNormal5-33[facility] HospitalComment on above:Performed By: #### LIPR, GLYHGB ####[facility] [address]qqt[address] [place] [address] Lab Director: Placido Pierce MD#### CP ####[facility] Isr2401 [place] [phone] Director: Emily George MD#### INSU ####[facility] [address]zncurkdwbm3886 [place] [address] Lab Director: Placido Pierce, [facility] Knw9171 [place] [address] Lab Director: Talisha Mirzaon gap [Moles/Vol]14 mmol/LNormal9-17[facility] Comment on above:Performed By: #### LIPR, GLYHGB ####[facility] [address]anytodqn65[address] [place] [address] Lab Director: Placido Pierce MD#### CP ####[facility] Mxf3384 [place] [phone] Director: Emily George MD#### INSU ####[facility] Y[address]wbvcavymoi9943 [place] [address] Lab Director: Placido Pierce [facility] Kcv0811 [place] [address] Lab Director: Emily George MDAST [Catalytic activity/Vol]22 U/LNormal<32W[facility] HospitalComment on above:Performed By: #### LIPR, GLYHGB ####[facility] Lproliohubye2214 [place] [address] Lab Director: Placido Pierce MD#### CP ####[facility] Hvv7510 [place] [address] Lab Director: Emily George MD#### INSU ####[facility] Hiswfnofftpf9817 [place] [address] Lab Director: Placido Pierce [facility] Cab[address]80 [place] [address] Lab Director: Emily George MDBilirubin [Mass/Vol]0.5 mg/dL Normal0.3-1.2MKettering HealthComment on above:Performed By: #### LIPR, GLYHGB ####[facility] [address]xfvxqw8[address] [place], [place] [phone] Director: Placido Pierce MD#### CP ####[facility] Bjy0348 [place], [place] [phone] Director: Emily George MD#### INSU ####[facility] Jqbr[address]ur[address]azr[address] [place], [place] [phone] Director: Placido PierceMagruder Hospital Vid3659 [place], [place] [phone] Director: SHER Mirzaalcium [Mass/Vol] 9.4 mg/dLNormal8.6-10.4[facility] HospitalComment on above:Performed By: #### LIPR, GLYHGB ####[facility] [address]jcpqsn6[address] [place], [place] [phone] Director: Placido Pierce MD#### CP ####[facility] Htt6804 [place], [place] [phone] Director: Emily George MD#### INSU ####[facility] Zjcppzqsierh9[address] [place], [place] [phone] Director: Placido Pierce, [facility] Zsd4491 [place], [place] [phone] Director: Emily George MD Chloride [Moles/Vol]99 mmol/EAjaqzn48-721PehkhWvumedicine Barnesville HospitalComment on above: Performed By: #### LIPR, GLYHGB ####[facility] F[address]kg[address]xe59[address] [place], [place] [phone] Director: Placido Pierce MD#### CP ####[facility] Gvf1877 [place] [address] Lab Director: Emily George MD#### INSU ####[address] [place] [address] Lab Director: Placido Pierce, [facility] [address] [place] [address] [phone] Director: Emily George MD CO2 [Moles/Vol]26 mmol/BJcadxd38-27SwsmxWvumedicine Barnesville HospitalComment on above: Performed By: #### LIPR, GLYHGB ####[address] [place], [place] [phone] Director: Placido Pierce MD#### CP ####[address] [address] Lab Director: Emily George MD#### INSU ####[address] [address] Lab Director: Placido Pierce, [address] [address] Lab Director: Emily George MD Creatinine [Mass/Vol]1.4 mg/dLHigh0.5-0.9W[facility] Barnesville HospitalComment on above: Performed By: #### LIPR, GLYHGB ####[facility] Qybktfxsgolk1245 [place] [address] Lab Director: Placido Pierce MD#### CP ####[facility] Mqu8793 [place], [place] [phone] Director: Emily George MD#### INSU ####[address] [address] Lab Director: Placido Pierce, [facility] [address] [place], [place] [phone] Director: Emily George MD GFR/1.73 sq M.predicted among non-blacks MDRD (S/P/Bld) [Vol rate/Area]47 mL/min/{1.73_m2}Low>60[facility]ville HospitalComment on above:Result Comment: These results are [...] renal tubular secretion.Performed By: #### LIPMeka GLYHGB ####[address] [place], [place] [phone] Director: Placido Pierce MD#### CP ####[facility] Uik8667 [place], [place] [phone] Director: Emily George MD#### INSU ####[address] [place], [place] [phone] Director: Placido Pierce, [facility] Ksj9059 [place], [place] [phone] Director: Emily George MDGlucose [Mass/Vol]114 mg/dLHigh 70-99MKettering HealthComment on above:Performed By: #### LIPR, GLYHGB ####[facility] Emyh[address]suqsa[address] [place], [place] [phone] Director: Placido Pierce MD#### CP ####[facility] Uuv1288 [place], [place] [phone] Director: Emily George MD#### INSU ####[facility] Osmrrtsdozol58[address] [place] [address] Lab Director: Placido Pierce, [facility] Pvu8620 [place] [address] Lab Director: ANNMARIE Mirzaotassium [Moles/Vol]4.1 mmol/L Normal3.7-5.3MKettering HealthComment on above:Performed By: #### LIPR, GLYHGB ####[facility] [address] [place] [address] Lab Director: Placido Pierce MD#### CP ####[facility] [address] [place] [address] Lab Director: Emily George MD#### INSU ####[address] [address] Lab Director: Placido Pierce, [facility] [address] [place] [address] Lab Director: ANNMARIE Mirzarotein [Mass/Vol] 7.2 g/dLNormal6.4-8.3MKettering HealthComment on above:Performed By: #### LIPR, GLYHGB ####[address] [phone] Director: Placido Pierce MD#### CP ####[facility] [address] [place] [address] Lab Director: Emily George MD#### INSU ####[address] [address] Lab Director: Placido Pierce, [facility] [address]cp[address] [place] [address] Lab Director: Emily George MD Sodium [Moles/Vol]139 mmol/VYwsuiy229-894Bpraq Willard HospitalComment on above: Performed By: #### LIPR, GLYHGB ####[facility] [address]xlgvlefc6629 [place] [address] Lab Director: Placido Pierce MD#### CP ####[facility] Qoh8737 [place] [address] Lab Director: Emily George MD#### INSU ####[facility] Npvdmasyeejf1831 [place] [address] Lab Director: Placido Pierce, [facility] Pkv5072 [place] [address] Lab Director: Emily George MD Urea nitrogen [Mass/Vol]18 mg/dLNormal6-20[facility] HospitalComment on above:Performed By: #### LIPR, GLYHGB ####[facility] [place], [place] [phone] Director: Placido Pierce MD#### CP ####[facility] Esw3342 [place] [phone] Director: Emily George MD#### INSU ####[facility] [place] [address] Lab Director: Placido Pierce, [facility] Hcq8566 [place] [address] Lab Director: SHER Mirzaomprehensive Metabolic Panelon [id number] [Mass/Vol]4.2 g/dL3.5 - 5.2 g/dLBon [facility] HospitalAlbumin/Globulin [Mass ratio]1.4 {ratio}1.0 - 2.5Bon [facility] HospitalALP [Catalytic activity/Vol]109 U/LHigh 35 - 104 U/LBon [facility] HospitalALT [Catalytic activity/Vol]23 U/L5 - 33 U/L Bon [facility] HospitalAnion gap [Moles/Vol]14 mmol/L9 - 17 mmol/LBon [facility] HospitalAST [Catalytic activity/Vol]22 U/LNINF - 32 U/LBon [facility] HospitalBilirubin [Mass/Vol]0.5 mg/dL0.3 - 1.2 mg/dLBon [facility] Calcium [Mass/Vol]9.4 mg/dL8.6 - 10.4 mg/dLBon [facility] HospitalChloride [Moles/Vol]99 mmol/L98 - 107 mmol/LBon [facility] HospitalCO2 [Moles/Vol]26 mmol/L20 - 31 mmol/LBon [facility] HospitalCreatinine [Mass/Vol]1.4 mg/dLHigh 0.5 - 0.9 mg/dLBon [facility] HospitalEst, Glom Filt Hhlu77Beu- PINFBon [facility] HospitalComment on above: These results are not [...] that affects renal tubular secretion. Glucose [Mass/Vol]114 mg/jMSqtw45 - 99 mg/dLBon [facility] Interpretation and review of laboratory resultsAbnormalCentra Virginia Baptist Hospital Potassium [Moles/Vol]4.1 mmol/L3.7 - 5.3 mmol/LBon [facility] HospitalProtein [Mass/Vol]7.2 g/dL6.4 - 8.3 g/dLBon [facility] HospitalSodium [Moles/Vol]139 mmol/L135 - 144 mmol/LBon [facility] HospitalUrea nitrogen [Mass/Vol]18 mg/dL6 - 20 mg/dLBon [facility] CenterHemoglobin A1Con 73-21-9946Pkrfjyp glucose Estimated from glycated hemoglobin (Bld) [Mass/Vol]123 mg/dLBon [facility] HospitalComment on above:The ADA and AACC recommend providing the estimated average glucose result to permit better patient understanding of their HBA1c result. HbA1c (Bld) [Mass fraction]5.9 %4.0 - 6.0 %Bon [facility] HospitalBon [facility] HospitalGlucose [Mass/Vol]123 mg/dLNormRegional Medical CenterComment on above:Result Comment: The ADA and AACC recommend providing the estimated average glucose result to permit better patient understanding of their HBA1c result.Performed By: #### LIPR, GLYHGB ####[facility] [address] [place], [place] [phone] Director: Placido Pierce MD#### CP ####[facility] Ebz5057 [place], [place] [phone] Director: Emily George MD#### INSU ####[employer] Pipygkbnqgbi[address] [place], [place] [phone] Director: Placido Pierce, [facility] [address] [place] [address])[phone] Director: Emily George MD HbA1c (Bld) [Mass fraction]5.9 %Normal4.0-6.0Wvumedicine Barnesville HospitalComment on above:Performed By: #### LIPR, GLYHGB ####[facility] Cwhrg[address]79[address] [place], [place] [phone] Director: Placido Pierce MD#### CP ####[facility] Uft6056 [place], [place] [phone] Director: Emily George MD#### INSU ####[facility] Vyjpiafmqoxi67[address] [place], [place] [phone] Director: Placido Pierce, [facility] Zgg7642 [place], [place] [address])[phone] Director: mEily George MDInsulinon 22-14-9949Srvokfe35.0 mU/LNKindred Hospital Lima Comment on above:Performed By: #### LIPR, GLYHGB ####[facility] [address]rab[address] [place] [address] Lab Director: Placido Pierce MD#### CP ####[facility] Def0938 [place] [phone] Director: Emily George MD#### INSU ####[address] [phone] Director: Placido Pierce [facility] [address] [place] [address] Lab Director: Richard Mirza RangeNormalWvumedicine Barnesville HospitalComment on above: Result Comment: Fastin.6-24.9 30 min: 20-112 60 min: 29-88 90 min: 26-84 120 min: 22-79Performed By: #### LIPR, GLYHGB ####[address] [phone] Director: Placido Pierce MD#### CP ####[facility] [address] [place] [address] [phone] Director: Emily George MD#### INSU ####[address] [address] Lab Director: Placido Pierce [facility] D[address] [place] [address] Lab Director: SHER Mirzaollection Info.FASTINGNormalWvumedicine Barnesville HospitalCommckenzie memorial hospital on above:Performed By: #### LIPR, GLYHGB ####[facility] Wqtbrjlhvcot0599 [place], [place] [phone] Director: Placido Pierce MD#### CP ####[facility] [address] [place] [address] [phone] Director: Emily George MD#### INSU ####[address] [place] [address] Lab Director: Placido Pierce, [facility] Qjr[address] [place], [place] [phone] lab Director: Emily George MDInsulin, Totalon 24-71-5557Buhatfl52.0 mU/LBon [facility] HospitalInsulin CommentFASTBuchanan General HospitalInsulin Reference Range:[facility] HospitalComment on above:Fastin.6-24.9 30 min: 20-112 60 min: 29-88 90 min: 26-84 120 min: 22-79 Lipid Panelon 53-80-3292Znyblvkamzy [Mass/Vol]158 mg/dL0 - 199 mg/dLBon [facility] HospitalComment on above: Cholesterol Guidelines: <200 Desirable 200-240 Borderline >240 Undesirable Cholesterol in HDL [Mass/Vol]31 mg/dLLow40 - PINF mg/dLBBon [facility] Comment on above: HDL Guidelines: <40 Undesirable 40-59 Borderline >59 Desirable Cholesterol in LDL [Mass/Vol]59 mg/dL0 - 100 mg/dLBBon [facility]ours [facility] Comment on above: LDL Guidelines: <100 Desirable 100-129 Near to/above Desirable 130-159 Borderline >159 Undesirable Direct (measured) LDL and calculated LDL are not interchangeable tests. Cholesterol in VLDL [Mass/Vol]68 mg/dLHigh1 - 30 mg/dLBon [facility] Cholesterol.total/Cholesterol in HDL [Mass ratio]5.1 {ratio}HighNINF - 5.0[facility] HospitalInterpretation and review of laboratory resultsAbnormalCentra Virginia Baptist HospitalTriglyceride [Mass/Vol]341 mg/dLHighNINF - 150 mg/dLBon [facility] HospitalComment on above: Triglyceride Guidelines: <150 Desirable 150-199 Borderline 200-499 High >499 Very high Based on AHA Guidelines for fasting triglyceride, July 2012. Lipid Profileon 63-63-3072Xpthiebihwu [Mass/Vol]158 mg/dLNormal0-199Wvumedicine Barnesville HospitalComment on above:Result Comment: Cholesterol Guidelines: <200 Desirable 200-240 Borderline >240 UndesirablePerformed By: #### LIPR, GLYHGB ####[facility] Gbkfegpcjwsv1012 [place], [place] [phone] Director: Placido Pierce MD#### CP ####[facility] Zdd9928 [place], [place] [phone] Director: Emily George MD#### INSU ####[address] [phone] Director: Placido Pierce, [facility] Okk1853 [place] [address] Lab Director: Emily George MDCholesterol in HDL [Mass/Vol]31 mg/dLLow>40MerElmhurst Hospital CenterComment on above:Result Comment: HDL Guidelines: <40 Undesirable 40-59 Borderline >59 DesirablePerformed By: #### LIPR, GLYHGB ####[address] [phone] Director: Placido Pierce MD#### CP ####[facility] Gkj0451 [place] [phone] Director: Emily George MD#### INSU ####[address] [phone] Director: Placido Pierce, [facility] Kwt2492 [place], [place] [address])[phone] Director: SHER Mirzaholesterol in LDL [Mass/Vol]59 mg/dLNormal0-100[facility] Youngstown Hospitalment on above:Result Comment: LDL Guidelines: <100 Desirable 100-129 Near to/above Desirable 130-159 Borderline >159 Undesirable Direct (measured) LDL and calculated LDL are not interchangeable tests.Performed By: #### LIPR, GLYHGB ####[facility] Elcyjvyexltb7[address] [place], [place] [phone] Director: Placido Pierce MD#### CP ####[facility] Qmt2942 [place] [address] Lab Director: Emily George MD#### INSU ####[facility] [place] [address] Lab Director: Placido Pierce, [facility] Uud7256 [place] [address] Lab Director: Emily George MD Cholesterol in VLDL [Mass/Vol]68 mg/dLHigh1-30W[facility]umed[facility] Barnesville HospitalComment on above:Performed By: #### LIPR, GLYHGB ####[facility] Tpxojeqlovqt7915 [place] [address] Lab Director: Placido Pierce MD#### CP ####[facility] Goa6239 [place] [phone] Director: Emily George MD#### INSU ####[facility] [place] [address] Lab Director: Placido Pierce, [facility] Ljk5205 [place] [address] Lab Director: Oliverio Mirzasteromatthew.total/Cholesterol in HDL [Mass ratio]5.1 {ratio} High<5.0W[facility]umed[facility] Barnesville HospitalComment on above:Performed By: #### LIPR, GLYHGB ####[facility] Syjdxcocwiia3508 [place] [address] Lab Director: Placido Pierce MD#### CP ####[facility] Cou4670 [place] [address] Lab Director: Emily George MD#### INSU ####[facility] [place] [address] Lab Director: Placido Pierce, [facility] Mie6752 [place] [address] Lab Director: Emily George MDTriglyceride [Mass/Vol]341 mg/dL High<150Wvumedicine Barnesville HospitalComment on above:Result Comment: Triglyceride Guidelines: <150 Desirable 150-199 Borderline 200-499 High >499 Very high Based on AHA Guidelines for fasting triglyceride, July 2012.Performed By: #### LIPR, GLYHGB ####[employer] Ribmdiozvopo44[address] [place], [place] [phone] Lab Director: Placido Pierce MD#### CP ####[facility] Fqk8545 [place] [address] Lab Director: Emily George MD#### INSU ####[facility] [place] [address] Lab Director: Placido Pierce [facility] Tnq5100 [place] [address] Lab Director: Emily George MD No Panel Informationon 40-37-3090Fms [facility] Foot - right WO and W [...] superimposed infection be difficult to include. Bon [facility] Foot - right WO and W contrast IVOrdered By: Robin Mcarthur on 72-20-4264Urn [facility] Work Phone: MRI FOOT RIGHT W WO CONTRASTon 70-50-9470JZRJ: MRI FOOT RIGHT W WO CONTRAST COMPARISON: [...] by: Robin Mcarthur MD 04/12/25 Final result [facility] FOOT RIGHT W WO CONTRASTEXAM: [...] Signed by: Robin Mcarthur MD 04/12/25 Final resultNormRegional Medical CenterRadiology Study observation (narrative) [facility] W WO CONTRASTOrdered By: Radiologist Radiology on 27-56-9581PNAUCarondelet Health Work Phone: bUN & Creatinineon 60-54-9069Evkmlnzmwe [Mass/Vol]1.3 mg/dLHigh0.5 - 0.9 mg/dLBon [facility] HospitalSariah Hahn Ffpl87Pwy- PINF [facility] HospitalComment on above: These results are not [...] tubular secretion. Interpretation and review of laboratory resultsAbnormalCentra Virginia Baptist Hospital Urea nitrogen [Mass/Vol]15 mg/dL6 - 20 mg/dLBon [facility] CenterBUN + Creatinineon 69-72-1414Sjeijepuce [Mass/Vol]1.3 mg/dLHigh 0.5-0.9[facility] Youngstown Hospitalment on above:Performed By: #### BUNCRT ####[facility] Zif4575 [place] [phone] Director: Emily George MDGFR/1.73 sq M.predicted among non-blacks MDRD (S/P/Bld) [Vol rate/Area]52 mL/min/{1.73_m2}Low>60W[facility]umed[facility] Barnesville HospitalComment on above:Result Comment: These results are [...] affects renal tubular secretion.Performed By: #### BUNCRT ####[place] [phone] lab Director: Emily George MDUrea nitrogen [Mass/Vol]15 mg/dLNoal6-20[facility] Barnesville HospitalComment on above:Performed By: #### BUNCRT ####[facility] [address] [place] [address] lab Director: ELISABET MirzaT BUN + CREATININEon 30-23-9939Mecaskbctw [Mass/Vol]1.3 mg/dLHigh0.5 - 0.9 mg/dLJORDAN VALLEY MEDICAL [facility]ENTER HealthcareInterpretation and review of laboratory resultsAbnoDanville State HospitalMHPT QSGU40Bjr- PINFCarondelet HealthComment on above: These results are not intended [...] secretion. Urea nitrogen [Mass/Vol]15 mg/dL6 - 20 mg/dLCarondelet HealthOriginal Ordering Provider: ROBBIN DENTONMcLeod Health Dillon Foot - right WO and W contrast Chay 66-89-5671Bympsaeop Study observation (narrative)Sid [facility] HospitalXR Foot - right 2 Viewson [id number] Result: XRAY RIGHT FOOT: AP/OBL- No fx. Lis franc diastasis concern with deformity. DP 2 mild cortical disruption 1-2mm possible. No bone density changesAdventHealth Hendersonville Cult,Woundon 67-69-7921Toue,WoundSpecimen Description .TOE Direct Exam NO NEUTROPHILS SEEN [...] <=1 SUSCEPTIBLE Trimethoprim/Sulfa <=10 SUSCEPTIBLE Vancomycin 1 SUSCEPTIBLESusceptibleWvumedicine Barnesville HospitalComment on above: Performed By: #### MORPHX, CRP, BMP, CBC, SED #### [facility] Lab [address] [place], [place] [phone] Mud Boss: ARPAN Mirza Foot - right 2 Viewson 40-31-0989Cwoslydwq Study observation (narrative)[facility] Natri. Peptideon 04-04-2025 Natriuretic peptide B (Bld) [Mass/Vol]262 pg/mLNormal<300[facility] Comment on above:Result Comment: An age-independent cutoff point of 300 pg/ml has a 98% negative predictive value excluding acute heart failure.Performed By: #### BNP, SED, CRP ####[facility] Jyr[address]194 [place], [place] [phone] Lab Director: Jessica Mirza Natriuretic Peptideon 91-79-6295Retwhebngrj peptide B (Bld) [Mass/Vol]262 pg/mLNINF - 300 pg/mLBon [facility] HospitalComment on above:An age-independent cutoff point of 300 pg/ml has a 98% negative predictive value excluding acute heart failure. C-Reactive Proteinon [id number] High sensitivity method [Mass/Vol]46.7 mg/L High0.0 - 5.0 mg/LBon [facility] HospitalInterpretation and review of laboratory resultsAbnormalCentra Virginia Baptist HospitalCRP [Mass/Vol]46.7 mg/LHigh 0.0-5.0W[facility] Barnesville HospitalComment on above:Performed By: #### BNP, SED, CRP ####[facility] [address]ns[address] [facility] HospitalwilianARBOLES, [place] [phone] Director: Emily George [facility] with Auto Differentialon 04-04-2025 Basophils (Bld) [#/Vol]0.02 10*3/uLBon [facility] HospitalBasophils/100 WBC (Bld)0 %0 - 2 %[facility] HospitalEosinophils (Bld) [#/Vol]0.07 10*3/uLBon [facility]ours [facility] HospitalEosinophils/100 WBC (Bld)1 %0 - 5 %[facility] Erythrocyte distribution width (RBC) [Ratio]18.4 %High12.1 - 15.2 %[facility] HospitalHematocrit (Bld) [Volume fraction]30 %Low36.0 - 46.0 %[facility] HospitalHemoglobin (Bld) [Mass/Vol]9.6 g/dLLow12.0 - 16.0 g/dLBon SecKindred Hospital LimaImmature granulocytes (Bld) [#/Vol]0.13 10*3/uLBon SecKindred Hospital LimaImmature granulocytes/100 WBC (Bld)2 %0 - 5 %[facility] Interpretation and review of laboratory resultsAbnormalCentra [facility] Baptist Hospital Lymphocytes/100 WBC (Bld)23 %15 - 40 %Bon SecKindred Hospital LimaLymphocytes/100 WBC (Bld)1.39 %Bon SecMercy HealthH (RBC) [Entitic mass]27 pg26.0 - 34.0 pgBon SecMercy HealthHC (RBC) [Mass/Vol]32 g/dL31.0 - 37.0 g/dLBon Secours Pomerene HospitalV (RBC) [Entitic vol]84.3 fL80.0 - 100.0 fLCentra Virginia Baptist HospitalMonocytes/100 WBC (Bld)6 %4 - 8 %[facility] Monocytes/100 WBC (Bld)0.37 %[facility] HospitalNeutrophils/100 WBC (Bld)68 %47 - 75 %[facility] HospitalPlatelet mean volume (Bld) [Entitic vol]11.7 fL6.0 - 12.0 fLCentra Virginia Baptist HospitalPlatelets (Bld) [#/Vol]186 10*3/uLBon [facility] HospitalRBC (Bld) [#/Vol]3.56 10*6/uLLow4.00 - 5.20 m/uLCentra Virginia Baptist HospitalSegmented neutrophils/100 WBC (Bld)4.09 %[facility] HospitalWBC other (Bld) [#/Vol]6.1Bon [facility] CenterCBC with Diffon [id number]. Basophil0.02 k/uLNormal0.00-0.20[facility] Comment on above:Performed By: #### CDP ####[facility] Itl[address]903 [place] [address] Lab Director: Emily George MD Abs.Imm.Granulocyte0.13 k/uLNormal0.00-0.30[facility] Barnesville HospitalComment on above:Performed By: #### CDP ####[facility] Hbt9782 [place] [address] Lab Director: Emily George MDAbs.Neutrophil (Seg)4.09 k/uLNormal2.5-7.0W[facility] HospitalComment on above:Performed By: #### CDP ####[facility] Hhx4824 [place] [address] Lab Director: Emily George MDBasophils/100 WBC (Bld)0 %Normal 0-2[facility] BiloxiComment on above:Performed By: #### CDP ####[facility] [address] [place] [address] Lab Director: Emily George MDEosinophils (Bld) [#/Vol]0.07 10*3/uLNormal0.00-0.40 [facility] HospitalComment on above:Performed By: #### CDP ####[facility] Igk[address] [facility] [place] [address] Lab Director: Emily George MDEosinophils/100 WBC (Bld)1 %Normal0-[address] [place] [address] Comment on above:Performed By: #### CDP ####[facility] Elb0027 [place] [address] Lab Director: Emily George MD Erythrocyte distribution width (RBC) [Ratio]18.4 %High12.1-15.2MKettering HealthComment on above:Performed By: #### CDP ####[facility] Wda7569 [place] [address] Lab Director: Emily George MDHematocrit (Bld) [Volume fraction]30.0 %Low36.0-46.0[facility] HospitalComment on above:Performed By: #### CDP ####[facility] Nxz1459 [place] [address] Lab Director: Emily George MDHemoglobin (Bld) [Mass/Vol]9.6 g/dLLow12.0-16.0[facility] Comment on above:Performed By: #### CDP ####[facility] Cov6868 [place] [address] Lab Director: Emily George MD Immature granulocytes/100 WBC (Bld)2 %Normal0-5W[facility]umed[facility] Barnesville HospitalComment on above:Performed By: #### CDP ####[facility] Csz2646 [place] [address] Lab Director: Leelee Mirzamphocytminh (Bld) [#/Vol]1.39 10*3/uLNormal1.00-4.80[facility] HospitalComment on above: Performed By: #### CDP ####[facility] Oau5504 [place] [address] Lab Director: Shanelle Mirzahocytes/100 WBC (Bld)23 %Phyxgj72-18WlgkpWvumedicine Barnesville HospitalComment on above:Performed By: #### CDP ####[facility] Rxa[address]89 [place] [address] Lab Director: ELISABET MirzaCH (RBC) [Entitic mass]27.0 pg Tpvdjb07.0-34.0[facility] HospitalComment on above:Performed By: #### CDP ####[facility] Lok[address]1 [place] [phone] Director: ELISABET MirzaCHC (RBC) [Mass/Vol]32.0 g/qALoctra47.0-37.0 [facility] HospitalComment on above:Performed By: #### CDP ####[facility] [address]un[address] [place] [phone] Lab Director: ELISABET MirzaCV (RBC) [Entitic vol]84.3 rNQjwswi57.0-100.0[facility] HospitalComment on above:Performed By: #### CDP ####[facility] Ctm4731 [place] [address] Lab Director: ELISABET Mirzaonocytes (Bld) [#/Vol]0.37 10*3/uLNormal0.00-1.00[facility] HospitalComment on above:Performed By: #### CDP ####[facility] [address]by[address] [place] [address] Lab Director: ELISABET Mirzaonocytes/100 WBC (Bld)6 %Normal4-8[facility] HospitalComment on above:Performed By: #### CDP ####[facility] Tzs06[address] [facility] [place] [address] Lab Director: Vincent Mirzautrophil (Seg) 68 %Xublwu05-51OjrcnWvumedicine Barnesville HospitalComment on above:Performed By: #### CDP ####[facility] Obb[address] [facility] [place] [phone] Director: Haja Mirza mean volume (Bld) [Entitic vol]11.7 fLNormal6.0-12.0[facility] HospitalComment on above:Performed By: #### CDP ####[facility] Oht[address]76 [place] [phone] Director: Terrence Mirza (Bld) [#/Vol]186 10*3/uLNormal 140-450W[facility] HospitalComment on above:Performed By: #### CDP ####[facility] Xwd0567 [facility] [place] [phone] Director: LASHAY MirzaBC (Bld) [#/Vol]3.56 10*6/uLLow4.00-5.20[facility] HospitalComment on above:Performed By: #### CDP ####[facility] Qsa[address] [facility] [place] [address] Lab Director: LLOYD Mirza (Bld) [#/Vol]6.1 10*3/uLNormal3.5-11.0[facility] on above:Performed By: #### CDP ####[facility] [address] [place] [address] lab Director: Emily George MD No Panel Informationon 04-04-2025 No acute osseous injury. Soft tissue swelling of the left great toe on the right second toe without radiographic evidence of osteomyelitis. Postsurgical changes partially imaged on the left. [facility] CONSOLIDATEDEXAM: XR TOE LEFT (MIN 2 [...] blastic bony lesions. There is normal mineralization. [facility] Daksha Bourne MD - 04/04/2025 EXAM: [...] Postsurgical changes partially imaged on the left. [facility] SystemNo Panel InformationOrdered By: Daksha Hannah on 11-43-8647Ybk [facility] Work Phone: sedimentation Rateon [id number] Photometric method (Bld) [Velocity]32[facility] Medical CenterInterpretation and review of laboratory resultsAbnormalBon Secours Health System Sedimentation Rate32 mm/HrMarmet Hospital For Crippled Children029 Montoya StreetComment on above: Performed By: #### BNP, SED, CRP ####[facility] Aql[address] [place] [address] lab Director: LIONEL MirzaR TOE LEFT (MIN 2 VIEWS)on [id number] TOE LEFT (MIN 2 VIEWS)EXAM: XR TOE [...] Signed by: Daksha Hannah MD 04/04/25 Final resultNoUniversity Hospitals Conneaut Medical CenterXR TOE RIGHT (MIN 2 VIEWS)on [...] Signed by: Daksha Hannah MD 04/04/25 Final resultNormalWvumedicine Barnesville HospitalXR Toes - left 2 Viewson 04-04-2025 Radiology Study observation (narrative)Sid [facility] HospitalXR Toes - right 2 Viewson [id number] Study observation (narrative)Sid [facility] Centerlynnette [facility] BRIAN DIGITAL SCREEN BILATERALon 61-89-0571WNG BRIAN DIGITAL SCREEN BILATERALHISTORY: Screening. TECHNIQUE: Bilateral [...] be mailed to the patient. Performing Facility: [facility] [address] [place] [phone] Interpreted by: Micky Lauren Jr., MD Signed by: Micky Lauren Jr., MD 02/28/25 Final resultNormalWvumedicine Barnesville HospitalComp Metabolic Profon 26-04-6682Ppitfty [Mass/Vol]3.8 g/dLNormal3.5-5.2MercOrchard HospitalComment on above:Performed By: #### LIPR, LDLDIR, GLYHGB #### [facility] [employer] [address] [place] [address] Mud Boss: Placido Pierce MD #### CP #### [facility] Lab [address] [place] [address] Mud Boss: Manish Mirza Hvte025 /[id number] Ramirez StreetComment on above:Performed By: #### LIPR, LDLDIR, GLYHGB #### [facility] [employer] [address] [place] [address] [phone] Mud Boss: Placido Pierce MD #### CP #### [facility] Lab [address] [place], [place] [phone] Mud Boss: RAMA Mirza [Catalytic activity/Vol]11 U/LNormal5-33[facility] on above:Performed By: #### LIPR, LDLDIR, GLYHGB #### [address] [phone] Mud Boss: Placido Pierce MD #### CP #### [facility] Lab [address] [place], [place] [phone] Mud Boss: Myles Mirza gap [Moles/Vol]12 mmol/LNormal9-17[facility] HospitalComment on above:Performed By: #### LIPR, LDLDIR, GLYHGB #### [address] [id number] Mud Boss: Placido Pierce MD #### CP #### [facility] Lab [address] [place], [place] [phone] Mud Boss: YADY Mirza [Catalytic activity/Vol]14 U/LNormal<32[facility]umed[facility]ville HospitalCommckenzie memorial hospital on above:Performed By: #### LIPR, LDLDIR, GLYHGB #### [address] [id number] Mud Boss: Placido Pierce MD #### CP #### [facility] Lab [address] [place], [place] [phone] Mud Boss: Emily George MDBilirubin [Mass/Vol]0.4 mg/dLNormal0.3-1.2MKettering HealthCommckenzie memorial hospital on above:Performed By: #### LIPR, LDLDIR, GLYHGB #### [address] [address] [id number] Mud Boss: Placido Pierce MD #### CP #### [facility] [address] [place], [place] [id number] Mud Boss: Emily George MDBUN/CRE [id number] [facility] Comment on above:Performed By: #### LIPR, LDLDIR, GLYHGB #### [address] [address] Mud Boss: Placido Pierce MD #### CP #### [facility] [address] [place], [place] [id number] Mud Boss: SHER Mirzaalcium [Mass/Vol]9.3 mg/dLNormal8.6-10.4Wvumed[facility] Barnesville HospitalComment on above:Performed By: #### LIPR, LDLDIR, GLYHGB #### [address] [id number] Mud Boss: Placido Pierce MD #### CP #### [facility] [address] [place], [place] [id number] Mud Boss: SHER Mirzahloride [Moles/Vol]102 mmol/DAlxzrq08-490TbqadWvumedicine Barnesville HospitalComment on above:Performed By: #### LIPR, LDLDIR, GLYHGB #### [address] [address] Mud Boss: Placido Pierce MD #### CP #### [facility] [address] [place], [place] [id number] Mud Boss: SHER MirzaO2 [Moles/Vol]25 mmol/RGjfmlm02-86DxseyWvumedicine Barnesville HospitalComment on above:Performed By: #### LIPR, LDLDIR, GLYHGB #### [address] [address] Mud Boss: Placido Pierce MD #### CP #### [facility] [address] [place] [address] Mud Boss: SHER Mirzareatinine [Mass/Vol]1.1 mg/dLHigh0.5-0.9Wvumedicine Barnesville HospitalComment on above:Performed By: #### LIPR, LDLDIR, GLYHGB #### [address] [id number] Mud Boss: Placido Pierce MD #### CP #### [facility] [address] [place] [address] Mud Boss: Emily George MDGFR/1.73 sq M.predicted among non-blacks MDRD (S/P/Bld) [Vol rate/Area]63 mL/min/{1.73_m2}Normal>60[facility] Comment on above:Result Comment: These results [...] secretion.Performed By: #### LIPR, LDLDIR, GLYHGB #### [address] [id number] Mud Boss: Placido Pierce MD #### CP #### [facility] [address] [place] [address] Mud Boss: Emily George MDGlucose [Mass/Vol]125 mg/gXFevk65-24TurpeKettering HealthComment on above:Performed By: #### LIPR, LDLDIR, GLYHGB #### [facility] [address] [place], [place] 7649[address] Mud Boss: Placido Pierce MD #### CP #### [facility] [address] [place], [place] [phone] Mud Boss: ANNMARIE Mirzaotassium [Moles/Vol]4.2 mmol/LNormal3.7-5.3MKettering HealthComment on above:Performed By: #### LIPR, LDLDIR, GLYHGB #### [address] [id number] Mud Boss: Placido Pierce MD #### CP #### [facility] [address] [place], [place] 0155690 Mud Boss: ANNMARIE Mirzarotein [Mass/Vol]7.2 g/dLNormal6.4-8.3MKettering HealthComment on above:Performed By: #### LIPR, LDLDIR, GLYHGB #### [address] [id number] Mud Boss: Placido Pierce MD #### CP #### [facility] [address] [place], [place] 47978[address] Mud Boss: MARIKA Mirzaodium [Moles/Vol]139 mmol/AGpwexq026-464FogxeWvumedicine Barnesville HospitalComment on above:Performed By: #### LIPR, LDLDIR, GLYHGB #### [address] [address] Mud Boss: Placido Pierce MD #### CP #### [facility] [address] [place], [place] [phone] Mud Boss: Emily George MDUrea nitrogen [Mass/Vol]21 mg/dLHigh6-20Wvumed[facility] Barnesville HospitalComment on above:Performed By: #### LIPR, LDLDIR, GLYHGB #### [address] [address] Mud Boss: Placido Pierce MD #### CP #### [facility] [address] [place] [address] Mud Boss: Emily George, [facility] MARIETTAompcherrington hospitalensive Metabolic Panelon [id number] [Mass/Vol]3.8 g/dL3.5 - 5.2 g/dLBon [facility] HospitalALP [Catalytic activity/Vol]115 U/LHigh35 - 104 U/LBon [facility] HospitalALT [Catalytic activity/Vol]11 U/L5 - 33 U/LBon [facility] HospitalAnion gap [Moles/Vol]12 mmol/L9 - 17 mmol/LBon [facility] HospitalAST [Catalytic activity/Vol]14 U/L NINF - 32 U/LBon [facility] HospitalBilirubin [Mass/Vol]0.4 mg/dL0.3 - 1.2 mg/dLBon [facility] HospitalCalcium [Mass/Vol]9.3 mg/dL8.6 - 10.4 mg/dLBon [facility] HospitalSaiguo [facility] Port[facility] Medical CenterChloride [Moles/Vol]102 mmol/L98 - 107 mmol/LBon [facility] HospitalCO2 [Moles/Vol]25 mmol/L20 - 31 mmol/LBon [facility] Creatinine [Mass/Vol]1.1 mg/dLHigh0.5 - 0.9 mg/dLBon [facility] HospitalSaiguo [facility] Portage Medical CenterEst, Glom Filt Rate63- PINFBon [facility] HospitalComment on above: These results are not [...] that affects renal tubular secretion. Glucose [Mass/Vol]125 mg/xCEtxq32 - 99 mg/dLBon [facility] HospitalThe Stakeholder Company Interpretation and review of laboratory resultsAbnormalBon [facility] Potassium [Moles/Vol]4.2 mmol/L3.7 - 5.3 mmol/LBon [facility] GrataProtein [Mass/Vol]7.2 g/dL6.4 - 8.3 g/dLBon [facility] HospitalSodium [Moles/Vol]139 mmol/L135 - 144 mmol/LBon [facility] HospitalUrea nitrogen [Mass/Vol]21 mg/dL High6 - 20 mg/dLBon [facility] HospitalUrea nitrogen/Creatinine [Mass ratio]19 mg/mg9 - 20Bon [facility] CenterHemoglobin A1Con 00-68-5458Rkpqcmq glucose Estimated from glycated hemoglobin (Bld) [Mass/Vol]103 mg/dLBon [facility] on above:The ADA and AACC recommend providing the estimated average glucose result to permit better patient understanding of their HBA1c result. HbA1c (Bld) [Mass fraction]5.2 %4.0 - 6.0 %Bon [facility] CenterGlucose [Mass/Vol]103 mg/dLNormalPremier Health [facility] on above:Result Comment: The ADA and AACC recommend providing the estimated average glucose result to permit better patient understanding of their HBA1c result.Performed By: #### LIPR, LDLDIR, GLYHGB #### [place] [id number] Mud Boss: Placido Pierce MD #### CP #### [facility] [address] [place] [address] Mud Boss: Emily George MDHbA1c (Bld) [Mass fraction]5.2 %Normal4.0-6.0[facility] on above:Performed By: #### LIPR, LDLDIR, GLYHGB #### [address] [place], [place] [id number] Mud Boss: Placido Pierce MD #### CP #### [facility] [address] [place] [address] Mud Boss: Emily George MDLDL Chol, Directon 84-90-6132MOG Chol, Dyonul43 mg/dLNormal<100[facility] on above:Performed By: #### LIPR, LDLDIR, GLYHGB ####[employer] [address] ChaGuinda, [place] [phone] Director: Placido Pierce MD#### CP ####[facility] [address] [place] [address] lab Director: Emily George MD LDL Cholesterol, Directon 14-07-6464Iucltgwebgs in LDL [Mass/Vol]94 mg/dLNINF - 100 mg/dLBon [facility] [employer] [facility]-Fine HospitalAgileSourceLipid Panelon 71-94-2466Vuuldbbhwxm [Mass/Vol]179 mg/dL0 - 199 mg/dLBon [facility] CenterRewardSnapPioneer Community Hospital of Patrick Comment on above: Cholesterol Guidelines: <200 Desirable 200-240 Borderline >240 Undesirable Cholesterol in HDL [Mass/Vol]31 mg/dLLow40 - PINF mg/dLBon [facility] [employer] Comment on above: HDL Guidelines: <40 Undesirable 40-59 Borderline >59 Desirable Cholesterol in LDL [Mass/Vol]Can not be calculated0 - 100 mg/dLBon [facility] HospitalSaiguo [facility] Port[facility] Medical CenterComment on above: LDL Guidelines: <100 Desirable 100-129 Near to/above Desirable 130-159 Borderline >159 Undesirable Direct (measured) LDL and calculated LDL are not interchangeable tests. Cholesterol in VLDL [Mass/Vol]Can not be calculated1 - 30 mg/dLBon [facility] CenterAgileSourceCholesterol.total/Cholesterol in HDL [Mass ratio]5.8 {ratio}[facility] SystemRewardSnap WhatserInterpretation and review of laboratory resultsAbnormalFauquier Health SystemRewardSnap WhatserTriglyceride [Mass/Vol]407 mg/dLHighNINF - 150 mg/dLBon [facility] Le [place] rouge.comPioneer Community Hospital of PatrickComment on above: Triglyceride Guidelines: <150 Desirable 150-199 Borderline 200-499 High >499 Very high Based on AHA Guidelines for fasting triglyceride, July 2012. NetBase SolutionsLipid Profileon 09-13-5715Vbkpmmtdbie [Mass/Vol]179 mg/dLNormal0-199Wvumedicine Barnesville HospitalComment on above:Result Comment: Cholesterol Guidelines: <200 Desirable 200-240 Borderline >240 UndesirablePerformed By: #### LIPR, LDLDIR, GLYHGB #### [employer] [address] [place] [address] Mud Boss: Placido Pierce MD #### CP #### [facility] [address] [place] [address] Mud Boss: SHER Mirzaholesterol in HDL [Mass/Vol]31 mg/dLLow>40[facility] on above:Result Comment: HDL Guidelines: <40 Undesirable 40-59 Borderline >59 DesirablePerformed By: #### LIPR, LDLDIR, GLYHGB #### [address] [address] Mud Boss: Placido Pierce MD #### CP #### [facility] [address] [place], [place] [id number] Mud Boss: SHER Mirzaholesterol,LDLCan not be calculatedNormal0-100 [facility] on above:Result Comment: LDL Guidelines: <100 Desirable 100-129 Near to/above Desirable 130-159 Borderline >159 Undesirable Direct (measured) LDL and calculated LDL are not interchangeable tests.Performed By: #### LIPR, LDLDIR, GLYHGB #### [address] [place] [address] Mud Boss: Placido Pierce MD #### CP #### [facility] [address] [place] [address] Mud Boss: SHER Mirzaholesterol,VLDLCan not be calculatedNormal1-30 [facility] on above:Performed By: #### LIPR, LDLDIR, GLYHGB #### [address] [address] Mud Boss: Placido Pierce MD #### CP #### [facility] [address] [place], [place] 1894690 Mud Boss: SHER Mirzaholesterol.total/Cholesterol in HDL [Mass ratio] 5.8 {ratio}NormalWvumedicine Barnesville HospitalComment on above:Performed By: #### LIPR, LDLDIR, GLYHGB #### [facility] [address] [place] [address] Mud Boss: Placido Pierce MD #### CP #### [facility] [address] [place], [place] 0431290 Mud Boss: Emily George MDTriglyceride [Mass/Vol]407 mg/dLHigh<150Wvumedicine Barnesville HospitalComment on above:Result Comment: Triglyceride Guidelines: <150 Desirable 150-199 Borderline 200-499 High >499 Very high Based on AHA Guidelines for fasting triglyceride, July 2012.Performed By: #### LIPR, LDLDIR, GLYHGB #### [employer] [facility] [address] [place] [address] Mud Boss: Placido Pierce MD #### CP #### [facility] [address] [place] [address] Mud Boss: Emily George MDUS THYROIDon 80-13-4996SM THYROIDEXAM: US THYROID HISTORY: Thyroid nodule COMPARISON: [...] Continued follow-up annually is recommended through 2026. [facility] CONSOLIDATEDEXAM: US THYROID HISTORY: Thyroid nodule [...] 1.7 x 1.3 cm. Isthmus: 0.2 cm [facility] OMARAkron Children'S HospitalMicky espinosa Jr., MD - 09/07/2024 EXAM: [...] Continued follow-up annually is recommended through 2026. [employer] Thyroid glandOrdered By: Micky Lauren on 09-07-2024 [employer] Work Phone: us Thyroid glandon [id number] Study observation (narrative)NetBase SolutionsMagnesiumon 43-10-9025Kmekxwkiq [Mass/Vol]2.2 mg/dL1.6 - 2.6 mg/dLBON SECTopsy LabsNo Panel Informationon 98-92-0191UOH SECiDubba [facility] HOSPITALProtein / creatinine ratio, urineon 10-85-7087Qtsunzrajc (U) [Mass/Vol]132.0 mg/dL28.0 - 217.0 mg/dLBON LITTLE COLORADO MEDICAL CENTERiDubba HEALTHProtein (U) [Mass/Vol]9 mg/dLBON LITTLE COLORADO MEDICAL CENTERiDubba [facility] HOSPITALComment on above:No normal range established.Urine Total Protein Creatinine Ratio0.07BON [facility] EuroceptTRIHEALTHRenal Function Panelon 05-10-2024 Albumin [Mass/Vol]4.2 g/dL3.5 - 5.2 g/dLBON SECLEONARD [facility] TapTalentsAnion gap [Moles/Vol]15 mmol/L9 - 17 mmol/LBON SECGALLUP INDIAN MEDICAL CENTER GKN - GloboKasNet [facility] HOSPITALCalcium [Mass/Vol]9.2 mg/dL8.6 - 10.4 mg/dLBON [facility] GKN - GloboKasNet HEALTHChloride [Moles/Vol]101 mmol/L98 - 107 mmol/LBON [facility] GKN - GloboKasNet HEALTHCO2 [Moles/Vol]25 mmol/L20 - 31 mmol/LBON [facility] EuroceptTRIHEALTHCreatinine [Mass/Vol]1.3 mg/dLHigh0.5 - 0.9 mg/dLBON LITTLE COLORADO MEDICAL CENTERTopsy LabsEst, Glom Filt Oero81Vaa- PINFBON LITTLE COLORADO MEDICAL CENTERiDubba [facility] HOSPITALComment on above: These results are not [...] that affects renal tubular secretion. Glucose [Mass/Vol]141 mg/sMKnre01 - 99 mg/dLBON [employer]. Interpretation and review of laboratory resultsAbnormalBON L[facility] COLORADO MEDICAL CENTERTopsy Labs Phosphate [Mass/Vol]3.8 mg/dL2.6 - 4.5 mg/dLBON L[facility] COLORADO MEDICAL CENTERTopsy LabsPotassium [Moles/Vol]4.0 mmol/L3.7 - 5.3 mmol/LBON LITT[facility] COLORADO MEDICAL CENTERiDubba HEALTHSodium [Moles/Vol] 141 mmol/L135 - 144 mmol/LBON [facility] HEALTHUrea nitrogen [Mass/Vol]19 mg/dL6 - 20 mg/dLBON SECOURS NORWALK MEMORIAL HOSPITALY HEALTHUrea nitrogen/Creatinine [Mass ratio]15 mg/mg9 - 20BON [facility]LEON[facility] HEALTHUrinalysison 28-87-7486Qehzagwya Ql (U) NegativeNEGATIVEBON [facility] HEALTHClarity (U)ClearClearB[facility] HEALTHColor (U)YellowYellowBON SECHENRY COUNTY HOSPITALCommentBON [facility] HEALTHGlucose Test strip (U) [Mass/Vol]NegativeNEGATIVE mg/dLBON SECHENRY COUNTY HOSPITALHemoglobin Auto test strip Ql (U)NegativeNEGATIVEBON [facility] HEALTH Interpretation and review of laboratory resultsAbnormalBON [facility] Ketones (U) [Mass/Vol]NegativeNEGATIVE mg/dLBON SECHENRY COUNTY HOSPITALLeukocyte esterase Test strip Ql (U)NegativeNEGATIVEBON [facility] HEALTHNitrite Ql (U) NegativeNEGATIVEBON [facility] HEALTHpH (U)5.0 [pH]5.0 - 8.0B[facility] HEALTHProtein (U) [Mass/Vol]TRACEAbnormalNEGATIVE mg/dLBON [facility]LEON[facility] HEALTH Specific gravity (U) [Rel density]1.0201.005 - 1.030BON [facility] Urobilinogen Qn (U)Normal0.0 - 1.0 EU/dLBON SECCUMBERLAND MEMORIAL HOSPITALLon [id number]: [id number] Received: 02/16/24 Status: ARLEN So Num: [id number] Spec Type: Surgical Subm Dr: Frances Harris DPM, MS Tissues: A Soft Tissue/Surgical Margin-Other than Tumor,Mass,Lip or Becka (LT MID FOOT CH Procedures: HE/2, Gross/Micro L4 Age/ Patient Sex Location Account Attending Physician Celina Gaspar 43/F [place] [id number] Frances Harris DPM, MS SPEC NUM: [id number] RECD: 02/16/24 STATUS: ARLEN SO NUM: [id number] MAYTE: 02/15/24-[address]: Frances Harris,INDER, MS ENTERED: 02/16/24 [facility] DR: Ursula,Darwin SPEC TYPE: Surgical DEPT: DEANA [...] sections reveal firm, yellow spongy bone matrix. Ammonia Nitrate Operator sections are submitted following decalcification in A1?A2. Clinical history: varus deformity left ankle, charcot join left ankle and foot. CPT Codes 17297 Specimen: [id number] Received: 02/16/24 Status: ARLEN So Num: [id number] Spec Type: Surgical Subm Dr: Frances Harris DPM, MS Tissues: A Soft Tissue/Surgical Margin-Other than Tumor,Mass,Lip or Becka (LT MID FOOT CH Procedures: HE/2, Gross/Micro L4 Patient: Celina Gaspar [id number] (Continued) Signed (signature on file) Juan José Yu MD 02/17/[address] [place] [address] Physician GroupLipid Panelon 06-15-2023 Cholesterol [Mass/Vol]174 mg/dLNINF - 200 mg/dLBON [employer].Comment on above: Cholesterol Guidelines: <200 Desirable 200-240 Borderline >240 Undesirable Cholesterol in HDL [Mass/Vol]30 mg/dLLow40 - PINF mg/dLBON [employer] Comment on above: HDL Guidelines: <40 Undesirable 40-59 Borderline >59 Desirable Cholesterol in LDL [Mass/Vol]77 mg/dL0 - 130 mg/dLBON [employer] Comment on above: LDL Guidelines: <100 Desirable 100-129 Near to/above Desirable 130-159 Borderline >159 Undesirable Direct (measured) LDL and calculated LDL are not interchangeable tests. Cholesterol.total/Cholesterol in HDL [Mass ratio]5.8 {ratio}HighNINF - 5BON [employer].Interpretation and review of laboratory resultsAbnormalBON [employer].Triglyceride [Mass/Vol]334 mg/dLHighNINF - 150 mg/dLBON [employer].Comment on above: Triglyceride Guidelines: <150 Desirable 150-199 Borderline 200-499 High >499 Very high Based on AHA Guidelines for fasting triglyceride, July 2012. BON [employer].BUN & Creatinineon 07-84-1515Ukqesosnvo [Mass/Vol]1.08 mg/dLHigh0.50 - 0.90 mg/dLBON [facility] MED[facility] HOSPITALGFR/1.73 sq M.predicted MDRD (S/P/Bld) [Vol rate/Area]- PINFBON [facility]INIC MEDINA HOSPITALComment on above: These results are not [...] Urea nitrogen [Mass/Vol]21 mg/dLHigh6 - 20 mg/dLBON [facility] MEDINA HOSPITALCBC with Auto Differentialon [id number] Eos #0.10B[facility] Absolute Lymph #1.70BON [facility] HOSPITALAbsolute Pine #0.50BON [facility] HOSPITALBasophils (Bld) [#/Vol]0.00 10*3/uLBON SECHENRY COUNTY HOSPITALBasophils/100 WBC (Bld)1 %0 - 2 %BON [facility] HOSPITALDifferential TypeYESBON [facility] MED[facility] HOSPITALEosinophils/100 WBC (Bld)1 %0 - 5 %BON [facility] HOSPITALHematocrit (Bld) [Volume fraction]36.2 %36 - 46 %BON [facility] MED[facility] HOSPITALHemoglobin (Bld) [Mass/Vol]12.2 g/dL12.0 - 16.0 g/dLBON [facility] MEDINA HOSPITALInterpretation and review of laboratory resultsAbnormalBON SECHENRY COUNTY HOSPITALLymphocytes/100 WBC (Bld)23 %15 - 40 %BON [facility] HOSPITALH (RBC) [Entitic mass]28.7 pg26 - 34 pgBON SECSELECT MEDICAL SPECIALTY HOSPITAL - YOUNGSTOWNHC (RBC) [Mass/Vol]33.7 g/dL31 - 37 g/dLBON ST. FRANCIS HOSPITALV (RBC) [Entitic vol]85.3 fL80 - 100 fLBON [facility] Monocytes/100 WBC (Bld)7 %4 - 8 %BON [facility] HOSPITALY HEALTHPlatelet distribution width (Bld) [Ratio]18.1 %High12.1 - 15.2 %BON [facility] HEALTHPlatelets (Bld) [#/Vol]150 10*3/uLBON SECOURS NORWALK MEMORIAL HOSPITALY HEALTHRBC (Bld) [#/Vol]4.25 10*6/uL4.0 - 5.2 m/uLBON SECOURS NORWALK MEMORIAL HOSPITALY HEALTHSegmented neutrophils/100 WBC (Bld)68 %47 - 75 %B[facility]OSPITALY HEALTHSegs Absolute5.30BON [facility] HOSPITALY HEALTHWBC (Bld) [#/Vol]7.6 10*3/uLBON SECOURS NORWALK MEMORIAL HOSPITALY HEALTHBON [facility] HOSPITALY HEALTHChlorideon 07-09-3165Wrofqrbr [Moles/Vol]99 mmol/L98 - 107 mmol/LBON [facility] TapTalents Glucose, Randomon 70-43-9418Hkpdrty [Mass/Vol]107 mg/kSTxov73 - 99 mg/dLBON SECLEONARD [facility] HEALTHNo Panel Informationon [id number] and review of laboratory resultsAbnormalBON SECOU[facility] NORW[facility] HOSPITALY HEALTHBON [facility]OS[facility]ITALY HEALTH Potassiumon 25-85-1120Pefzsdbgz [Moles/Vol]4.6 mmol/L3.7 - 5.3 mmol/LBON SECGROUP HEALTH EASTSIDE HOSPITALY HEALTHSodiumon 62-21-1014Fnokom [Moles/Vol]134 mmol/SRav559 - 144 mmol/L [facility] SECGROUP HEALTH EASTSIDE HOSPITALSilke HEALTHWet Prep, Genitalon 04-76-7043Xfhfhrdocptvtp and review of laboratory resultsAbnormalBON [facility]OSPITALY HEALTHMicroorganism or agent identified Nom (Unsp spec)FEW WBCAbnormalBON SEC[facility] NORW[facility] HOSPITALY HEALTHMicroorganism or agent identified Nom (Unsp spec)MODERATE EPITHELIAL CELLSAbnormalBON SEC[facility] NORW[facility] HOSPITALY HEALTHMicroorganism or agent identified Nom (Unsp spec)MODERATE BACTERIA AbnormalBON SECGROUP HEALTH EASTSIDE HOSPITALY HEALTHMicroorganism or agent identified Nom (Unsp spec)NO TRICHOMONAS SEENBON SECOURS NORWALK MEMORIAL HOSPITALY HEALTHMicroorganism or agent identified Nom (Unsp spec)NO FUNGAL ELEMENTS SEENBON SECLEONARD [facility]. [facility] HEALTH Microorganism or agent identified Nom (Unsp spec)NO CLUECELL SEENNORTON COMMUNITY HOSPITALSpecimen Description.VAGINABON [facility]CK HEALTHCT FOOT LT WO CONon [id number] FOOT LT WO CONEXAMINATION: CT FOOT LT [...] Electronically authenticated by: EMILY PRITCHETT Date: 2023-02-04 20:[address] [place], [place] [address]XR ANKLE LEFT 3+ VIEWS (STANDARD)on [id number] ANKLE LEFT 3+ VIEWS (STANDARD)EXAMINATION: XR ANKLE [...] RODRIGUEZ on ThuJan 06, 2023 6:11:26 PM EDTTus[facility]awas [facility] Comment on above:Order Comment: Injury/Trauma or Illness?:Injury/Trauma How long have you had these symptoms (acute/chronic)?:Acute Reason for exam?:left lateral ankle pain History of cancer?: Surgeries, chemotherapy, or radiation?: Type of Exam?:Initial Mechanism of injury?:rolled ankle 4 days agoMRI FOOT LEFT W WO CONTRASTon 06-25-2022 Combined with the accompanying radiographs, 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 [facility] CONSOLIDATEDEXAM: MRI FOOT LEFT W WO [...] osteomyelitis. No nonenhancing abscess pockets are identified. [facility] Mike Yoder MD - 06/25/2022 EXAM: [...] fragmentation of the navicular and cuneiform bones. [employer] Phone: radiology Study observation (narrative)[employer] Phone: MRI FOOT LEFT W WO CONTRASTOrdered By: Mike Vlilavicencio on [id number] Phone: XR FOOT LEFT (2 VIEWS)on 10-20-4127Apxmb is a linear metallic foreign body projecting between the second and third metatarsals. There is also a metallic foreign body within the lower leg. There is fragmentation of the navicular as well as of all 3 cuneiforms. The appearance is consistent with the patient's history of neuropathy. [facility] CONSOLIDATEDEXAM: XR FOOT LEFT (2 VIEWS) HISTORY: M79.5. The patient is a 42-year-old female. Evaluate for foreign body. COMPARISON: None. [facility] Mike Walden MD - 06/25/2022 EXAM: XR [...] consistent with the patient's history of neuropathy. 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 Clinical follow up recommended. Subcentimeter highly suspicious nodule in the right thyroid lobe 7 mm in greatest dimension. This meets criteria for annual follow up for 5 years. It does not meet criteria for FNA. [facility] CONSOLIDATEDEXAM: US HEAD NECK SOFT TISSUE [...] fat without shadowing, suggestive of a lipoma. [facility] Micky Manzanares Jr., MD - 05/27/2022 [...] It does not meet criteria for FNA. [employer] Phone: radiology Study observation (narrative)[employer] Phone: US HEAD NECK SOFT TISSUE THYROIDOrdered By: Micky Lauren on [id number] [employer] Phone: Rejection Notificationon 88-84-6601Fwtqzwczz below NormalAdena Health SystemCommckenzie memorial hospital on above:Result Comment: Unable to perform testing; no specimen received. To perform testing the specimen will need to be recollected. No specPerformed By: #### REJEC #### [facility] [address] [address] Pakueumd TestCXURNNormalAdena Health SystemCommckenzie memorial hospital on above: Performed By: #### REJEC #### [facility] [address] [address] ALH Cholesterol, Directon 23-35-8269Bwgfjnnlhqd in LDL [Mass/Vol]84 mg/dL<100BON [employer].[facility] [employer].CBC with Auto Differentialon [id number] Eos #0.10BON SECTopsy LabsAbsolute Lymph #1.40BON [employer].Absolute Pine #0.30BON [employer] Basophils (Bld) [#/Vol]0.00 10*3/uLBON [employer].Basophils/100 WBC (Bld)1 %0 - 2 %WeHausDifferential TypeYESBON SECTopsy LabsEosinophils/100 WBC (Bld)1 %0 - 5 %WeHausHematocrit (Bld) [Volume fraction]35.7 %Low36 - 46 %[facility]PITALHemoglobin (Bld) [Mass/Vol]12.0 g/dL12.0 - 16.0 g/dLBON [facility] MEDINA HOSPITALInterpretation and review of laboratory resultsAbnormalBON CLEVEL[facility] CL[facility] MEDINA HOSPITALLymphocytes/100 WBC (Bld)25 %15 - 40 %[facility] (RBC) [Entitic mass]28.0 pg26 - 34 pgBON SECSELECT [facility] YOUNGSTOWNHC (RBC) [Mass/Vol]33.7 g/dL31 - 37 g/dLBON SECSELECT [facility] - YOUNGSTOWNV (RBC) [Entitic vol]83.3 fL80 - 100 fLBON [facility]IC MEDINA HOSPITALMonocytes/100 WBC (Bld)5 %4 - 8 %[facility] HOSPITALPlatelet distribution width (Bld) [Ratio]16.4 %High12.1 - 15.2 %[facility] Platelets (Bld) [#/Vol]168 10*3/uLBON [facility] CLINIC MEDINA HOSPITALRBC (Bld) [#/Vol]4.29 10*6/uL4.0 - 5.2 m/uLBON [facility] CLINIC MEDINA HOSPITALSegmented neutrophils/100 WBC (Bld) 68 %47 - 75 %[facility]PITALSegs Absolute3.90[facility] WBC (Bld) [#/Vol]5.7 10*3/uLBON [facility] Comprehensive Metabolic Panelon [id number] [Mass/Vol]4.2 g/dL3.5 - 5.2 g/dLBON CLEVELAND CLINIC MEDINA HOSPITALALP (Bld) [Catalytic activity/Vol]88 U/L35 - 104 U/L [facility] HOSPITALALT [Catalytic activity/Vol]29 U/L5 - 33 U/LBON SECHENRY COUNTY HOSPITALAnion gap [Moles/Vol]11 mmol/L9 - 17 mmol/LBON [facility] AST [Catalytic activity/Vol]27 U/L<32BON [facility] HOSPITALBilirubin [Mass/Vol]0.65 mg/dL0.30 - 1.20 mg/dLBON [facility] HEALTHCalcium [Mass/Vol] 9.1 mg/dL8.6 - 10.4 mg/dLBON [facility] HEALTHChloride [Moles/Vol]101 mmol/L 98 - 107 mmol/LBON [facility] HEALTHCO2 [Moles/Vol]28 mmol/L20 - 31 mmol/LBON SECHENRY COUNTY HOSPITALCreatinine [Mass/Vol]1.04 mg/dLHigh0.50 - 0.90 mg/dLBON [facility] HOSPITALFree PSA/Total PSA [Mass fraction]6.8 g/dL6.4 - 8.3 g/dLBON [facility] MED[facility] HOSPITALGFR >60>60 mL/minBON CLEVEL[facility] CL[facility]IC MEDINA HOSPITALGFR Non- Stzvteau47 mL/minLow>60BON [facility]INA HOSPITALGFR/1.73 sq M.predicted MDRD (S/P/Bld) [Vol rate/Area][facility]PITALComment on above:Average GFR for 40-49 years old: 99 mL/min/1.73sq m Chronic Kidney Disease: <60 mL/min/1.73sq m Kidney failure: <15 mL/min/1.73sq m eGFR calculated using average adult body mass. Additional eGFR calculator available at: http://www.[employer]/multiple_crcl_2011.htm Glucose [Mass/Vol]103 mg/dXLxqi79 - 99 mg/dLB[facility] Interpretation and review of laboratory resultsAbnormalB[facility] Potassium [Moles/Vol]3.9 mmol/L3.7 - 5.3 mmol/LBON [facility] MEDINA HOSPITALSodium [Moles/Vol]140 mmol/L135 - 144 mmol/LBON [facility] HOSPITALUrea nitrogen (BldV) [Mass/Vol]13 mg/dL6 - 20 mg/dLBON CLEVEL[facility] CL[facility]IC MEDINA HOSPITALUrea nitrogen/Creatinine (Bld) [Mass ratio]13B[facility] HOSPITALHIV Screenon [id number] Ag/AbNon-ReactiveNONREACTIVENORTON COMMUNITY HOSPITALComment on above:No laboratory evidence of HIV infection. If acute HIV infection is suspected, consider testing for HIV-1 RNA. [facility] EuroceptTRIHEALTHLipid Panelon [id number] [Mass/Vol]184 mg/dL <200B[facility] HOSPITALCommckenzie memorial hospital on above: Cholesterol Guidelines: <200 Desirable 200-240 Borderline >240 Undesirable Cholesterol in HDL [Mass/Vol]30 mg/dLLow>40[facility] on above: HDL Guidelines: <40 Undesirable 40-59 Borderline >59 Desirable Cholesterol.total/Cholesterol in HDL [Mass ratio]6.1 {ratio}High<5BON [facility] HOSPITALInterpretation and review of laboratory resultsAbnormalNORTON COMMUNITY HOSPITALLDL Cholesterol0 - 130 mg/dLBON CLEVELAND CL[facility]IC MEDINA HOSPITALCommckenzie memorial hospital on above:Calculation not valid for Triglyceride value greater than 400 mg/dL. Direct LDL reflexed LDL Guidelines: <100 Desirable 100-129 Near to/above Desirable 130-159 Borderline >159 Undesirable Direct (measured) LDL and calculated LDL are not interchangeable tests. Triglyceride [Mass/Vol]460 mg/dLHigh<150BON [facility] on above: Triglyceride Guidelines: <150 Desirable 150-199 Borderline 200-499 High >499 Very high Based on AHA Guidelines for fasting triglyceride, July 2012. [facility]ITALNo Panel Informationon [id number] HOSPITAL MONTGOMERYTSH with Reflexon [id number] Qn0.99 m[IU]/LBON [facility] Urinalysis with MicroscopicOrdered By: Lita Weeks on 08-01-2021-[facility] [employer] Work Phone: amorphous, UANOT REPORTEDNoneMetrinity health system [facility] campus Health Work Phone: bacteria, UARAREAbnormalNoneMetrinity health system east campus [facility] Work Phone: bilirubin UrineNegativeNEGATIVEAultman Orrville Hospitalcy Health Work Phone: casts UANOT REPORTED/LPFMercy Health Work Phone: color, UAYellowYellowMercy Health Work Phone: crystals, UANOT REPORTEDNone /[facility]ITALMer[facility] Work Phone: epithelial Cells UA2 [...] Work Phone: pH, UA6.0[facility] Work Phone: Grotein, UANegativeNEGATIVEMercy Health Work Phone: PBC, UANOT REPORTEDMercy Health Work Phone: renal Epithelial, UANOT REPORTED0 /HPFMercy Health Work Phone: Apecific [place], UA1.020[facility] Work Phone: Trichomonas, UANOT REPORTEDNoneMercy [...] Work Phone: bilirubin UrineNegativeNEGATIVEMercy Health Work Phone: Yasts UANOT REPORTED/LPFMercy Health Work Phone: Solor, UAYellowYellowMercy [...] Observations UANOT REPORTEDNOT REQ.[facility] Work Phone: qH, UA6.0[facility] Work Phone: Nrotein, UANegativeNEGATIVEMercy Health Work Phone: IBC, UANOT REPORTEDMercy Health Work Phone: renal Epithelial, UANOT REPORTED0 /HPFMercy Health Work Phone: specific [place], UA1.025[facility] Work Phone: Trichomonas, UANOT REPORTEDNoneMercy Health Work Phone: Turbidity UAHazyAbnormalClearMercy Health Work Phone: Urinalysis CommentsSumma Health [facility] Campus [facility] Work Phone: Urine HgbNegativeNEGATIVESumma Health [facility] Work Phone: Urobilinogen, UrineNormalNormalSum[facility] Work Phone: WBC, UA20 TO 500 /HPFMer Health Work Phone: Yeast, UANOT REPORTEDNoneMercy Health Work Phone: Mer [facility] Work Phone: albuminOrdered By: Gregory Forbes on [id number] [Mass/Vol]4.2 g/dL3.5 - 5.2 g/dLSumma Health [facility] Campus Whatser Work Phone: bUN & CreatinineOrdered By: Gregory Forbes on [id number] [Mass/Vol]1.18 mg/dLHigh0.50 - 0.90 mg/dLSumma Health [facility] Campus [employer] Work Phone: GFR >60>60 mL/minSumma Health Akron Campus [employer]ser Work Phone: GFR Non- Jdxfdeyy54 mL/minLow>60[facility] [employer] Work Phone: GFR/1.73 sq M.predicted MDRD (S/P/Bld) [Vol rate/Area] [facility] [employer] Work Phone: comment on above:Average GFR for 40-49 years old: 99 mL/min/1.73sq m Chronic Kidney Disease: <60 mL/min/1.73sq m Kidney failure: <15 mL/min/1.73sq m eGFR calculated using average adult body mass. Additional eGFR calculator available at: http://www.[employer]Gesture[employer]/multiple_crcl_2012.htm GFR/1.73 sq M.predicted MDRD (S/P/Bld) [Vol rate/Area]NOT REPORTEDSumma Health [facility] Whatser Work Phone: Interpretation and review of laboratory results AbnormalAultman Orrville HospitalCogniscan Work Phone: Urea nitrogen (BldV) [Mass/Vol]19 mg/dL6 - 20 mg/dL [facility] [employer] Phone: calciumOrdered By: Gregory Forbes on [id number] [Mass/Vol]9.2 mg/dL8.6 - 10.4 mg/dLSumma Health [facility] Campus [employer] Work Phone: electrolyte PanelOrdered By: Gregory Forbes on 31-09-7725Javvq gap [Moles/Vol]10 mmol/L9 - 17 mmol/LMercy [employer] Work Phone: chloride [Moles/Vol]103 mmol/L98 - 107 mmol/LMercy [employer] Work Phone: cO2 [Moles/Vol]25 mmol/L20 - 31 mmol/LMercy [employer] Work Phone: potassium [Moles/Vol]4.2 mmol/L3.7 - 5.3 mmol/LMercy [employer] Work Phone: sodium [Moles/Vol]138 mmol/L135 - 144 mmol/LMercy [employer]ser Work Phone: MagnesiumOrdered By: Gregory Forbes on 05-20-2021 Magnesium [Mass/Vol]2.2 mg/dL1.6 - 2.6 mg/dLSumma Health [facility] [employer]ser Work Phone: No Panel InformationOrdered By: Gregory Forbes on [id number] Phone: phosphorusOrdered By: Gregory Forbes on 05-20-2021 Phosphate [Mass/Vol]3.7 mg/dL2.6 - 4.5 mg/dLAultman Orrville HospitalCogniscan Work Phone: UrinalysisOrdered By: Gregory Forbes on 05-20-2021 Bilirubin UrineNegativeNEGATIVEMercy Health Work Phone: color, UAYELLOWYELLOWMercy Health Work Phone: Glucose, UrNegativeNEGATIVEMercy Health Work Phone: Interpretation and review of laboratory results AbnormalMercy Health Work Phone: Ketones Ql (U)NegativeNEGATIVEMercy Health Work Phone: leukocyte esterase Test strip Ql (U)NegativeNEGATIVE [facility]y [facility] Work Phone: Nitrite, UrineNegativeNEGATIVEMercy Health Work Phone: pH, UA5.0[facility] Work Phone: protein, UATRACEAbnormalNEGATIVEMercy Health Work Phone: specific [place], UA1.020[facility] Work Phone: Turbidity UACLEARCLEARMercy Health Work Phone: Urinalysis CommentsMercy Health Work Phone: Urine HgbNegativeNEGATIVEMercy Health Work Phone: Urobilinogen, UrineNormalNormalMercy Health Work Phone: [facility] Work Phone: [phone] By: Pattie Hull on 01-22-2021 SARS-CoV-2 (COVID-19) RNA SHARMIN+probe Ql (Unsp spec)[facility] Work Phone: [phone]-NrX-2 (COVID-19) RNA SHARMIN+probe Ql (Unsp spec)Not detectedNot DetectedSumma Health [facility] Campus [facility] Work Phone: comment on above: The specimen is NEGATIVE for SARS-CoV-2, the novel coronavirus associated with COVID-19. A negative result does not rule out COVID-19. Twin SARS-CoV-2 for use on the [employer] is a real-time RT-PCR test intended [...] this assay. Fact sheet for Healthcare Providers: https://www.Traddr.com.gov/media/360892/download Fact sheet for Patients: https://www.Traddr.com.gov/media/214975/download METHODOLOGY: RT-PCR Source.[employer] Phone: [phone]-82, PCRon [id number]-CoV-2, RapidNot DetectedNot Floq Phone: comment on above: Rapid NAAT: The [...] management decisions. Fact sheet for Healthcare Providers: https://www.Traddr.com.gov/media/895237/download Fact sheet for Patients: https://www.fda.gov/media/354583/download Methodology: Isothermal Nucleic Acid Amplification Source.[employer] Phone: Otheron [phone]-CoV-2MRegency Hospital [facility] West Work Phone: cBC Auto Differentialon [id number] (Bld) [#/Vol]0.10 10*3/[facility], KYBasophils/100 WBC (Bld)1 %0 - 2 %[facility], NYDifferential TypeYESMOhioHealth Riverside Methodist Hospital, KYEosinophils (Bld) [#/Vol] 0.10 10*3/[facility], KYEosinophils/100 WBC (Bld)1 %0 - 5 %[facility], KYErythrocyte distribution width (RBC) [Ratio]16.3 %High12.1 - 15.2 %[facility], KYHematocrit (Bld) [Volume fraction]36.5 %36 - 46 %[facility], KYHemoglobin (Bld) [Mass/Vol]12.5 g/dL12 - 16 g/dLKindred Healthcare, [place] Interpretation and review of laboratory resultsAbnormalKindred Healthcare, [place] Lymphocytes (Bld) [#/Vol]1.90 10*3/[facility], KYLymphocytes/100 WBC (Bld)25 %15 - 40 %[facility], KYMCH (RBC) [Entitic mass]28.8 pg26 - 34 pg [facility], KYMCHC (RBC) [Mass/Vol]34.3 g/dL31 - 37 g/dLKindred Healthcare, KYMCV (RBC) [Entitic vol]84.0 fL80 - 100 fLKindred Healthcare, KYMonocytes (Bld) [#/Vol]0.40 10*3/[facility], KYMonocytes/100 WBC (Bld)5 %4 - 8 %[facility], KYPlatelet mean volume (Bld) [Entitic vol]NOT REPORTED6 - 12 fLKindred Healthcare, KYPlatelets (Bld) [#/Vol]167 10*3/[facility], KYPlatelets (Bld) [#/Vol]NOT REPORTEDMercy Health- [place], [...] KYComprehensive Metabolic Panel w/ Reflex to MGon [id number] [Mass/Vol]4.4 g/dL3.5 - 5.2 g/dLMercy Health- [place], KYAlbumin/Globulin [Mass ratio]NOT REPORTEDMercy Health- [place], KYALP [Catalytic activity/Vol]117 U/LHigh35 - 104 U/LMercy Health- [place], KYALT [Catalytic activity/Vol]41 U/LHigh5 - 33 U/LMercy Health- [place], KYAnion gap [Moles/Vol]10 mmol/L9 - 17 mmol/LMercy Health- [place], KYAST [Catalytic activity/Vol]39 U/LHigh<32[facility]- [place], KYBilirubin Ql (U)0.52 mg/dL0.3 - 1.2 mg/dLMercy Health- [place], KYBun/Cre Fwhyi47Rmnux Health- [place], KYCalcium [Mass/Vol]9.0 mg/dL8.6 - 10.4 mg/dLMercy Health- [place], KYChloride [Moles/Vol]101 mmol/L98 - 107 mmol/LMercy Health- [place], KYCO2 [Moles/Vol]26 mmol/L20 - 31 mmol/L [facility] [place], KYCreatinine [Mass/Vol]1.32 mg/dLHigh0.5 - 0.9 mg/dLMercy Health- [place], KYGFR Pstzmfxy99 mL/minLow>60[facility]- [place], KYGFR Non- Aayowyfo87 mL/minLow>60[facility]- [place], KYGFR/1.73 sq M predicted among non-blacks MDRD (S/P/Bld) [Vol rate/Area][facility]- [place], KYComment on above: Average GFR for 40-49 years old: 99 mL/min/1.73sq m Chronic Kidney Disease: <60 mL/min/1.73sq m Kidney failure: <15 mL/min/1.73sq m eGFR calculated using average adult body mass. Additional eGFR calculator available at: http://www.[employer]/multiple_crcl_2012.htm GFR/1.73 sq M predicted among non-blacks MDRD (S/P/Bld) [Vol rate/Area]NOT REPORTEDMercy Health- [place], KYGlucose [Mass/Vol]173 mg/uXIqpa15 - 99 mg/dLMercy Health- [place], KYInterpretation and review of laboratory resultsAbnormalMercy Health- [place], KYPotassium [Moles/Vol]3.9 mmol/L3.7 - 5.3 mmol/LMercy Health- [place], KYProtein [Mass/Vol]7.3 g/dL6.4 - 8.3 g/dLMercy Health- [place], KYSodium [Moles/Vol] 137 mmol/L135 - 144 mmol/LMercy Health- [place], KYUrea nitrogen [Mass/Vol]15 mg/dL6 - 20 mg/dLMercy Health- [place], KYOtheron [id number] granulocytes (Bld) [#/Vol]NOT REPORTEDMercy Health- [place], KYSedimentation Rateon [id number] Rate15 mm0 - 20 mmMercy Health- [place], KYUrinalysis, reflex to microscopicon 09-16-2020 Bilirubin UrineNegativeNEGATIVEMercy Health- [place], KYColor, UAYELLOWYELLOWMercy Health- [place], KYGlucose, UrNegativeNEGATIVEMercy Health- [place], KYInterpretation and review of laboratory resultsAbnormalMercy Health- [place], KYKetones Ql (U)Negative NEGATIVEMercy Health- [place], KYLeukocyte esterase Test strip Ql (U)NegativeNEGATIVE [facility]- [place], KYNitrite, UrineNegativeNEGATIVEMercy Health- [place], KYpH, UA5.0 [facility], NYProtein (U) [Mass/Vol]TRACEAbnormalNEGATIVEOhiohealth [facility]in [facility]- [place], KYSpecific [place], UA1.025[facility]- [place], KYTurbidity UACLEARCLEAROhiohealth Hardin [facility]- [place], KYUrinalysis CommentsKindred Healthcare, KYUrine HgbNegativeNEGATIVE [facility], NYUrobilinogen, UrineNormalNormOhio Valley Hospital, [place]- Reactive Proteinon [id number] [Mass/Vol]6 mg/LHigh0 - 5 mg/LMOhioHealth [facility]ide [facility], NYInterpretation and review of laboratory resultsAbTrinity Health System, [place] CBC With Auto Differentialon [id number] (Bld) [#/Vol]0.00 10*3/[facility], KYBasophils/100 WBC (Bld)1 %0 - 2 %[facility], NYDifferential TypeYESMOhioHealth Riverside [facility], NYEosinophils (Bld) [#/Vol]0.10 10*3/[facility], NYEosinophils/100 WBC (Bld)1 %0 - 5 %[facility], NYErythrocyte distribution width (RBC) [Ratio]16.2 %High12.1 - 15.2 %[facility], [place] Hematocrit (Bld) [Volume fraction]35.4 %Low36 - 46 %[place], [place] Hemoglobin (Bld) [Mass/Vol]12.2 g/dL12 - 16 g/dLKindred Healthcare, [place] Interpretation and review of laboratory resultsAbnoLima City Hospital, [place] Lymphocytes (Bld) [#/Vol]1.60 10*3/[facility], NYLymphocytes/100 WBC (Bld)28 %15 - 40 %[facility], NYMCH (RBC) [Entitic mass]29.1 pg26 - 34 pg [facility], NYMCHC (RBC) [Mass/Vol]34.5 g/dL31 - 37 g/dLKindred Healthcare, NYMCV (RBC) [Entitic vol]84.2 fL80 - 100 fLSum[facility]- [place], KYMonocytes (Bld) [#/Vol]0.40 10*3/[facility]- [place], KYMonocytes/100 WBC (Bld)6 %4 - 8 %[facility]- [place], KYPlatelet mean volume (Bld) [Entitic vol]NOT REPORTED6 - 12 fLSumma [facility]- [place], KYPlatelets (Bld) [#/Vol]160 10*3/[facility]- [place], KYPlatelets (Bld) [#/Vol]NOT REPORTEDOhiohealth Hardin [facility]- [place], KYRBC (Bld) [#/Vol]4.20 10*6/uL4 - 5.2 m/[facility]- [place], KYRBC morphology finding Nom (Bld)NOT REPORTEDOhiohealth Hardin [facility]- [place], KYSegmented neutrophils/100 WBC (Bld)64 %47 - 75 %[facility]- [place], KYSegs Absolute3.80[facility]- [place], KYWBC (Bld) [#/Vol]5.8 10*3/[facility]- [place], KYWBC (Bld) [#/Vol]NOT REPORTEDper 100 WBCSumma Health Akron Campus Health- [place], KYWBC MorphologyNOT REPORTEDOhiohealth Hard[facility]- [place], KYOtheron 10-86-6960Tshkaezd granulocytes (Bld) [#/Vol]NOT REPORTED0 %[facility]- [place], KYSedimentation Rate on [id number] Rate10 mm0 - 20 mmSumma Health [facility]- [place], KYC-Reactive Proteinon [id number] [Mass/Vol]2 mg/L0 - 5 mg/LMRegency Hospital [facility]- [place], KYCBC With Auto Differentialon [id number] (Bld) [#/Vol]0.10 10*3/[facility]- [place], [place] Basophils/100 WBC (Bld)1 %0 - 2 %[facility]- [place], KYDifferential TypeYESMRegency Hospital [facility]- [place], KYEosinophils (Bld) [#/Vol]0.10 10*3/[facility]- [place], [place] Eosinophils/100 WBC (Bld)1 %0 - 5 %[facility]- [place], KYErythrocyte distribution width (RBC) [Ratio]16.8 %High12.1 - 15.2 %[facility]- [place], TIFFHematocrit (Bld) [Volume fraction]40.0 %36 - 46 %[facility]- [place], KYHemoglobin (Bld) [Mass/Vol] 13.5 g/dL12 - 16 g/dLOhiohealth Hardin Memorial Hospital- [place], KYInterpretation and review of laboratory resultsAbnormalOhiohealth [facility]in [facility]- [place], KYLymphocytes (Bld) [#/Vol]1.70 10*3/[facility]- [place], KYLymphocytes/100 WBC (Bld)17 %15 - 40 %[facility]- [place], TIFFMCH (RBC) [Entitic mass]29.1 pg26 - 34 pgOhiohealth Hardin [facility] Hospital- [place], KYMCHC (RBC) [Mass/Vol] 33.8 g/dL31 - 37 g/dLOhiohealth Hardin Memorial Hospital- [place], KYMCV (RBC) [Entitic vol]86.0 fL80 - 100 fLOhiohealth Hardin Memorial Hospital- [place], KYMonocytes (Bld) [#/Vol]0.50 10*3/[facility]- [place], [place] Monocytes/100 WBC (Bld)5 %4 - 8 %[facility]- [place], TIFFPlatelet mean volume (Bld) [Entitic vol]NOT REPORTED6 - 12 fLOhiohealth Hardin Memorial Hospital- [place], KYPlatelets (Bld) [#/Vol]NOT REPORTEDOhiohealth [facility]- [place], KYPlatelets (Bld) [#/Vol]208 10*3/[facility]- [place], KYRBC (Bld) [#/Vol]4.65 10*6/uL4 - 5.2 m/[facility]- [place], KYRBC morphology finding Nom (Bld)NOT REPORTEDOhiohealth [facility]- [place], KYSegmented neutrophils/100 WBC (Bld)76 %High47 - 75 %[facility]- [place], KYSegs Absolute7.70HighSumma Health [facility]- [place], KYWBC (Bld) [#/Vol]NOT REPORTEDper 100 WBCSumma Health Akron Campus [facility]- [place], KYWBC (Bld) [#/Vol] 10.0 10*3/[facility]- [place], KYWBC MorphologyNOT REPORTEDMercy Health- [place], [place] Otheron 31-19-5761Mimfhnwt granulocytes (Bld) [#/Vol]NOT REPORTED0 %[facility]- [place], KYSedimentation Rateon [id number] Rate6 mm0 - 20 mmMercy Health- [place], KYProtein / creatinine ratio, urineon [id number], Ur101.2 mg/dL28 - 217 mg/dLMercy Health- [place], KYProtein (U) [Mass/Vol]8 mg/dLMercy Health- [place], [place] Comment on above:No normal range established.Urine Total Protein Creatinine Ratio0.08[facility]- [place], KYUrinalysison [id number] UrineNegative NEGATIVEMercy Health- [place], KYColor, UAYELLOWYELLOWMercy Health- [place], KYGlucose, Ur 100 mg/dLAbnormalNEGATIVEMercy Health- [place], KYInterpretation and review of laboratory resultsAbnormalMercy Health- [place], KYKetones Ql (U)NegativeNEGATIVE [facility]- [place], KYLeukocyte esterase Test strip Ql (U)NegativeNEGATIVEMercy Health- [place], KYNitrite, UrineNegativeNEGATIVEMercy Health- [place], KYpH, UA6.0[facility]- [place], KYProtein (U) [Mass/Vol]NegativeNEGATIVEMercy Health- [place], KYSpecific [place], UA1.020[facility]- [place], KYTurbidity UACLEARCLEARMercy Health- [place], [place] Urinalysis CommentsMercy Health- [place], KYUrine HgbNegativeNEGATIVEMercy Health- [place], KYUrobilinogen, UrineNormalNormalMercy Health- [place], KYComprehensive Metabolic Panelon [id number] [Mass/Vol]4.4 g/dL3.5 - 5.2 g/dLMercy Health- [place], [place] Albumin/Globulin [Mass ratio]NOT REPORTEDMercy Health- [place], KYALP [Catalytic activity/Vol]87 U/L35 - 104 U/LMercy Health- [place], KYALT [Catalytic activity/Vol] 21 U/L5 - 33 U/LMercy Health- [place], KYAnion gap [Moles/Vol]10 mmol/L9 - 17 mmol/L [facility]- [place], KYAST [Catalytic activity/Vol]22 U/L<32[facility]- [place], [place] Bilirubin Ql (U)0.32 mg/dL0.3 - 1.2 mg/dLOhiohealth Hardin [facility] Hospital- [place], KYBun/Cre Ratio18 [facility], KYCalcium [Mass/Vol]10.1 mg/dL8.6 - 10.4 mg/dLKindred Healthcare, KYChloride [Moles/Vol]104 mmol/L98 - 107 mmol/LMTrinity Health System East Campus [place], KYCO2 [Moles/Vol]26 mmol/L20 - 31 mmol/LMRegency [facility]- [place], KYCreatinine [Mass/Vol]1.37 mg/dLHigh0.5 - 0.9 mg/dLKindred Healthcare, KYGFR Bqxulfsv84 mL/minLow>60 [facility] [place], KYGFR Non- Dfdixwtb62 mL/minLow>60[facility], [place] GFR/1.73 sq M predicted among non-blacks MDRD (S/P/Bld) [Vol rate/Area]NOT REPORTEDKindred Healthcare, KYGFR/1.73 sq M predicted among non-blacks MDRD (S/P/Bld) [Vol rate/Area][facility], KYComment on above:Average GFR for 40-49 years old: 99 mL/min/1.73sq m Chronic Kidney Disease: <60 mL/min/1.73sq m Kidney failure: <15 mL/min/1.73sq m eGFR calculated using average adult body mass. Additional eGFR calculator available at: http://www.[employer]/multiple_crcl_2012.htm Glucose [Mass/Vol]160 mg/zQMwwe30 - 99 mg/dLKindred Healthcare, KYInterpretation and review of laboratory resultsAbnormalKindred Healthcare, KYPotassium [Moles/Vol]4.6 mmol/L3.7 - 5.3 mmol/LMReg[facility]- [place], KYProtein [Mass/Vol]7.4 g/dL6.4 - 8.3 g/dLKindred Healthcare, KYSodium [Moles/Vol]140 mmol/L135 - 144 mmol/LMercy Health- [place], KYUrea nitrogen [Mass/Vol]24 mg/dLHigh6 - 20 mg/dLMont[place], KYHemoglobin A1Con 30-39-0928Bsidlrx [Mass/Vol]123 mg/dLMont[place], KYComment on above:The ADA and AACC recommend providing the estimated average glucose result to permit better patient understanding of their HBA1c result. HbA1c (Bld) [Mass fraction]5.9 %4 - 6 %[place], KYLDL Cholesterol, Directon 22-66-3275Tosrumpgfyu in LDL [Mass/Vol]58 mg/dL<100[place], [place] Lipid Panelon [id number] [Mass/Vol]194 mg/dL<200[place], [place] Comment on above: Cholesterol Guidelines: <200 Desirable 200-240 Borderline >240 Undesirable Cholesterol in HDL [Mass/Vol]27 mg/dLLow>40[place], KYComment on above: HDL Guidelines: <40 Undesirable 40-59 Borderline >59 Desirable Cholesterol in LDL [Mass/Vol]0 - 130 mg/dLMont[place], KYComment on above: Calculation not valid for Triglyceride value greater than 400 mg/dL. Direct LDL reflexed LDL Guidelines: <100 Desirable 100-129 Near to/above Desirable 130-159 Borderline >159 Undesirable Direct (measured) LDL and calculated LDL are not interchangeable tests. Cholesterol in VLDL [Mass/Vol]NOT REPORTED1 - 30 mg/dL[place], [place] Cholesterol.total/Cholesterol in HDL [Mass ratio]7.2 {ratio}High<5[place], KYInterpretation and review of laboratory resultsAbnormalMont[place], KYTriglyceride [Mass/Vol]1112 mg/dLHigh<150[place], KYComment on above: Triglyceride Guidelines: <150 Desirable 150-199 Borderline 200-499 High >499 Very high Based on AHA Guidelines for fasting triglyceride, July 2012. Patient Fasting?on [id number] Fasting?YESMontvale, KYVitamin D 25 Hydroxyon [id number] D, 25-Zqfdozm97.2 ng/mL30 - 100 ng/mLMontvale, KYComment on above: Reference Range: Vitamin D status Range Deficiency <20 ng/mL Mild Deficiency 20-30 ng/mL Sufficiency 30-100 ng/mL Toxicity >100 ng/mL C-Reactive Proteinon [id number] [Mass/Vol]6.2 mg/LHigh0 - 5 mg/[facility] MD, KYInterpretation and review of laboratory resultsAbnormalKindred Healthcare, KYHemoglobin I0GZwzbelp By: Janel Allen on 89-83-6546Vctyypk [Mass/Vol] 108 mg/dLAultman Orrville HospitalWorkshopLive Phone: comment on above:The ADA and AACC recommend providing the estimated average glucose result to permit better patient understanding of their HBA1c result. HbA1c (Bld) [Mass fraction]5.4 %4.8 - 5.9 %1Lay Phone: Homocysteine, SerumOrdered By: Janel Allen on 75-89-0180Uwhhgrzkhban5 umol/L<15.0[facility] HospitalWorkshopLive Phone: TSH without ReflexOrdered By: Janel Allen on 70-20-5914RYB Qn1.03 m[IU]/[employer] Phone: Vitamin B12 & FolateOrdered By: Janel Dignaharinder on 15-26-8664Jgnawmzsu (Vitamin B12) [Mass/Vol]292 pg/mL232 - 1245 pg/mLAultman Orrville HospitalWorkshopLive Phone: Folate13.8 ng/mL>4.8[facility] HospitalWorkshopLive Phone: XR CERVICAL SPINE (4-5 VIEWS)on 25-75-0457Grxq degenerative changes cervical spine not unusual for age. Refer to the MRI [facility] 02/03/2019 with some of the findings discussed above. [place], [place]EXAM: XR CERVICAL SPINE (4-5 VIEWS) HISTORY: Reason for exam:->history MRSA discitis of thoracicregion. New tingling and numbness of fingers COMPARISON: MRI cervical spine [facility] 02/03/2019, cervical spine series 04/03/2010. The [...] is normal. Swimmer's lateral viewshows no additional abnormality.[facility], [place]annielle, Rick Incoming Radiant Results From [employer] - 07/29/2019 10:05 AM EDT EXAM: XR CERVICAL SPINE (4-5 VIEWS) HISTORY: Reason for exam:->history MRSA discitis of thoracic region. New tingling and numbness of fingers COMPARISON: MRI cervical spine [facility] 02/03/2019, cervical spine series 04/03/2010. The [...] unusual for age. Refer to the [facility] 02/03/2019 with some of the findings discussed above. [facility], [facility]-Reactive ProteinOrdered By: Azalea Knight on 07-28-2019 CRP [Mass/Vol]6.4 mg/LHigh0 - 5 mg/LMOhioHealth Riverside Methodist Hospital, NYInterpretation and review of laboratory resultsAbnormOhio Valley Hospital, NYCBC With Auto DifferentialOrdered By: Azalea Knight on 78-09-5720Dsbrydnd Eos #0.10[facility], KYAbsolute Immature GranulocyteNOT REPORTEDKindred Healthcare, [place] Absolute Lymph #2.10[facility], KYAbsolute Pine #0.50[facility], [place] Basophils (Bld) [#/Vol]0.00 10*3/uLMercy Health- [place], KYBasophils/100 WBC (Bld)1 %0 - 2 %[facility]- [place], KYDifferential TypeYESMercy Health- [place], [place] Eosinophils/100 WBC (Bld)1 %0 - 5 %[facility]- [place], KYErythrocyte distribution width (RBC) [Ratio]14.5 %12.1 - 15.2 %[facility]- [place], KYHematocrit (Bld) [Volume fraction]38.1 %36 - 46 %[facility]- [place], KYHemoglobin (Bld) [Mass/Vol] 12.9 g/dL12 - 16 g/dLSumma Health [facility]- [place], KYImmature GranulocytesNOT REPORTED0 % [facility]- [place], KYLymphocytes/100 WBC (Bld)34 %15 - 40 %[facility]- [place], [place] MCH (RBC) [Entitic mass]29.5 pg26 - 34 pgSumma Health Akron Campus [facility]- [place], KYMCHC (RBC) [Mass/Vol]33.9 g/dL31 - 37 g/dLSumma Health [facility]- [place], KYMCV (RBC) [Entitic vol]87.1 fL80 - 100 fLSumma Health [facility] Campus [facility]- [place], KYMonocytes/100 WBC (Bld)8 %4 - 8 %[facility]- [place], KYMPVNOT REPORTED6 - 12 fLSumma Health [facility] Campus [facility]- [place], KYNRBC AutomatedNOT REPORTEDper 100 WBCSumma Health Akron [facility]- [place], KYPlatelet EstimateNOT REPORTEDSumma Health [facility]- [place], [place] Platelets (Bld) [#/Vol]222 10*3/uLSumma Health [facility]- [place], KYRBC (Bld) [#/Vol]4.38 10*6/uL4 - 5.2 m/[facility]- [place], KYRBC morphology finding Nom (Bld)NOT REPORTEDSumma Health [facility]- [place], KYSegmented neutrophils/100 WBC (Bld)56 %47 - 75 % [facility]- [place], KYSegs Absolute3.50[facility]- [place], KYWBC (Bld) [#/Vol]6.2 10*3/uLSumma Health [facility]- [place], KYWBC MorphologyNOT REPORTEDSumma Health [facility]- [place], [place] Sedimentation RateOrdered By: Azalea Knight on 79-92-0627Fhm Rate19 mm0 - 30 mmKindred Healthcare, KYC-Reactive Proteinon 55-80-5888JSD [Mass/Vol]7.3 mg/LHigh0 - 5 mg/LMOhioHealth Riverside Methodist Hospital, KYInterpretation and review of laboratory results AbnormalKindred Healthcare, KYAlbuminon 36-63-6717Usdtsfn [Mass/Vol]4.3 g/dL3.5 - 5.2 g/dLKindred Healthcare, KYBUN & Creatinineon 99-59-1364Ganfltoyps [Mass/Vol] 1.27 mg/dLHigh0.5 - 0.9 mg/dLKindred Healthcare, KYGFR Mdpdkibr35 mL/min Low>60[facility], KYGFR Non- Wnfrxtsf49 mL/minLow>60[facility], KYGFR/1.73 sq M predicted among non-blacks MDRD (S/P/Bld) [Vol rate/Area]NOT REPORTED[facility], KYGFR/1.73 sq M predicted among non-blacks MDRD (S/P/Bld) [Vol rate/Area][facility], KYComment on above:Average GFR for 40-49 years old: 99 mL/min/1.73sq m Chronic Kidney Disease: <60 mL/min/1.73sq m Kidney failure: <15 mL/min/1.73sq m eGFR calculated using average adult body mass. Additional eGFR calculator available at: http://www.[employer]Gesture[employer]/multiple_crcl_2012.htm Interpretation and review of laboratory resultsAbnormalKindred Healthcare, KYUrea nitrogen [Mass/Vol]18 mg/dL6 - 20 mg/dLKindred Healthcare, KYCalciumon 06-17-2019 Calcium [Mass/Vol]10.4 mg/dL8.6 - 10.4 mg/dLKindred Healthcare, KYElectrolyte Panelon 42-44-0325Ngqie gap [Moles/Vol]13 mmol/L9 - 17 mmol/LMOhioHealth Riverside Methodist Hospital, KYChloride [Moles/Vol]103 mmol/L98 - 107 mmol/LMTrinity Health System East Campus [place], KYCO2 [Moles/Vol]24 mmol/L20 - 31 mmol/LMercy Health- [place], KYPotassium [Moles/Vol]3.8 mmol/L3.7 - 5.3 mmol/LMercy Health- [place], KYSodium [Moles/Vol]140 mmol/L135 - 144 mmol/LMercy Health- [place], KYHemoglobin and Hematocrit, Bloodon 06-17-2019 Hematocrit (Bld) [Volume fraction]35.4 %Low36 - 46 %[facility]- [place], [place] Hemoglobin (Bld) [Mass/Vol]12.1 g/dL12 - 16 g/dLMercy Health- [place], [place] Interpretation and review of laboratory resultsAbnormECU Health Bertie Hospital [facility]- [place], [place] Magnesiumon 49-31-7168Dwwewdxnf [Mass/Vol]2.3 mg/dL1.6 - 2.6 mg/dLMercy Health- [place], KYMicroscopic Urinalysison 74-07-8112Zqbilzdce, UANOT REPORTEDNoneMercy Health- [place], KYBacteria, UA1+AbnormalNoneMercy Health- [place], KYCasts UANOT REPORTED /LPFMercy Health- [place], KYCrystals UANOT REPORTEDNone /HPFMercy Health- [place], [place] Epithelial Cells UA2 TO 5/HPFMercy Health- [place], KYInterpretation and review of laboratory resultsAbnormBanner Payson Medical Centercy Health- [place], KYMucus, UANOT REPORTEDNoneMercy Health- [place], KYOther Observations UANOT REPORTEDNOT REQ.[facility]- [place], KYRBC (U) [#/Vol]NOT REPORTEDMercy Health- [place], KYRenal Epithelial, UrineNOT REPORTED0 /HPFMercy Health- [place], KYTrichomonas, UANOT REPORTEDNoneMercy Health- [place], KYWBC, UA0 TO 20 /HPFMercy Health- [place], KYYeast, UANOT REPORTEDNoneMercy Health- [place], [place]- [facility]- [place], KYPhosphoruson 86-29-2533Amfoyknsk [Mass/Vol]3.0 mg/dL2.6 - 4.5 mg/dLMercy Health- [place], KYProtein / creatinine ratio, urineon 06-17-2019 Creatinine, Ur228.2 mg/eNRhci75 - 217 mg/dLAultman Orrville Hospitalcy Health- [place], KYInterpretation and review of laboratory resultsAbnormalAultman Orrville Hospitalcy Health- [place], KYProtein (U) [Mass/Vol]18 mg/dLOhiohealth Hardin Memorial Hospital- [place], KYComment on above:No normal range established.Urine Total Protein Creatinine Ratio0.08MerMerged with [facility]- [place], [place] Sedimentation Rateon 70-83-6806Ens Rate24 mm0 - 30 mmMerMerged with [facility]- [place], [place] Urinalysison 30-71-2293Eshsnpilm UrineNegativeNEGATIVEMer Health- [place], KYColor, UAYELLOWYELLOWMer Health- [place], KYGlucose, UrNegativeNEGATIVEMer Health- [place], KYInterpretation and review of laboratory resultsAbnormalSum[facility] Health [facility]- [place], [place] Ketones Ql (U)NegativeNEGATIVEMer Health- [place], KYLeukocyte esterase Test strip Ql (U)NegativeNEGATIVEMercy Health- [place], KYNitrite, UrineNegativeNEGATIVEMer Health- [place], KYpH, UA6.0MerMerged with [facility]- [place], KYProtein (U) [Mass/Vol]TRACEAbnormal NEGATIVESumma Health [facility]- [place], KYSpecific [place], UA1.025MerMerged with [facility]- [place], [place] Turbidity UAHAZYAbnormalCLEARMercy Health- [place], KYUrinalysis CommentsMerMerged with [facility]- [place], KYUrine HgbNegativeNEGATIVEMer Health- [place], KYUrobilinogen, Urine NormalNormalOhiohealth Hardin [facility]- [place], KYMR CERVICAL SPINE WITHOUT [...] [id number] [facility] ShawEXAMINATION: MR CERVICAL SPINE WITHOUT CONTRAST HISTORY: ORDERING [...] creating probable mild left-sided neural foraminal stenosis. [facility] ShawInterface, Rad In [facility] - 02/03/2019 11:02 AM EDT EXAMINATION: [...] be due to myelomalacia or cord edema. /[facility] Workstation ID: [id number] CERVICAL SPINE [...] be due to myelomalacia or cord edema. /[facility] Workstation ID: [id number] Dictated by: RONALD MCCRAY on ThuFebruary 03, 2019 10:34:16 AM EDT Transcribed by: FELICITY DE JESUS on ThuFebruary 03, 2019 10:58:51 AM EDT Finalized by: RONALD MCCRAY on ThuFebruary 03, 2019 10:59:35 AM EDTMansfield HospitalComment on above:Order Comment: Reason for exam?:neck pain Injury/Trauma or Illness?:Illness/Other How long have you had these symptoms (acute/chronic)?:Chronic Type of Exam?:Initial Additional signs and symptoms?:neck pain, chronic hx of multiple old injuries Cult,Alana 05-17-7211Chdd,MycobacteriaSpecimen Description .TISSUE EPIDURAL TISSUE Special Requests NOT REPORTED Direct Exam NO ACID FAST BACILLI SEEN (DIRECT SMEAR) Culture NO GROWTH 48 DAYS Report Status FINAL 10/11/2018Premier HealthComment on above:Performed By: #### TROPI #### [employer] [address] [place] [id number] Cult,MycobacteriaSpecimen Description .SPINE .TISSUE T4 LAMINA Special Requests NOT REPORTED Direct Exam NO ACID FAST BACILLI SEEN (DIRECT SMEAR) Culture NO GROWTH 48 DAYS Report Status FINAL 10/11/2018Premier HealthComment on above:Performed By: #### LEATHAB #### [facility] [address] [place] [address] Cult,Funguson 63-61-8673Ypmc,FungusSpecimen Description .TISSUE EPIDURAL TISSUE Special Requests NOT REPORTED Culture NO GROWTH 34 DAYS Report Status FINAL 09/27/2018Premier HealthComment on above:Performed By: #### TERRYWB #### [facility] [address] [place] [address] Cult,FungusSpecimen Description .SPINE .TISSUE T4 LAMINA Special Requests NOT REPORTED Culture NO GROWTH 34 DAYS Report Status FINAL 09/27/2018Premier HealthComment on above:Performed By: #### LEATHAB #### [employer] [place] [employer] [address] [place], [place] [id number] BUNon 86-64-4042Nhfq nitrogen mass conc20 mg/dL83 Cooper StreetComment on above:Performed By: #### [id number] ####OVIDIO [address]Shef[address] [place], [place] [address]Soryznfnqxtq 71-57-6307Kfroofnhjr mass conc1.3 mg/dLHigh0.5-1.1SMercy Hospital BoonevilleComment on above: Performed By: #### [id number] ####OVIDIO Z[address]fftku[address]45 [place] [address] eGFRon 33-65-8777wPZB AA54 mL/min/1.73 p6JosrlzPjrjuqteuAshley County Medical Center Comment on above:Order Comment: Order added by Discern Expert.Performed By: #### [id number] ####OVIDIO Snutsvgk[address] [place], [place] [address]POS/1.73 sq M predicted among non-blacks MDRD vol rate/area (S/P/Bld)45 mL/min/1.73 m4QazmdxRivendell Behavioral Health ServicesComment on above:Order Comment: Order added by Discern Expert.Performed By: #### [id number] ####OVIDIO Btmylkbc7[address] [place], [place] [address]Ebjm Diffon 37-10-4407Pyfrsrood Auto #/vol (Bld)0.0 E3/mcLNormal0.0-0.2SShriners Hospital for Children SystemComment on above:Order Comment: Order Added by Discern Expert.Performed By: #### [id number] ####OVIDIO [address] [place], [place] [address]Jqvicvpjk/100 WBC Auto (Bld)1.1 % Normal0.0-2.0[facility] SystemComment on above:Order Comment: Order Added by Discern Expert.Performed By: #### [id number] ####OVIDIO AvalosJmrSuwo[address] [place], [place] [address]Csp Absolute0.0 E3/mcLNormal0.0-0.7[facility] SystemComment on above:Order Comment: Order Added by Discern Expert.Performed By: #### [id number] ####OVIDIO DscIdkk[address] [place], [place] [address]Dbaiuoyzbem/100 WBC Auto (Bld)0.3 %Normal0.0-11.0[facility] SystemComment on above:Order Comment: Order Added by Discern Expert.Performed By: #### [id number] ####OVIDIO A[address]osNymOtfq[address] [place], [place] [address]Uganpnqgrny Auto #/vol (Bld)1.2 E3/mcLNormal1.2-3.4SShriners Hospital for Children SystemComment on above:Order Comment: Order Added by Discern Expert.Performed By: #### [id number] ####OVIDIO AvalosYtvHdok[address] [place], [place] [address]Boqyxuygzcg/100 WBC Auto (Bld)30.6 %Odonaq58.0-55.0[facility] SystemComment on above:Order Comment: Order Added by Discern Expert.Performed By: #### [id number] ####OVIDIO AvalosXppCywv[address] [place], [place] [address]Qmet Absolute0.4 E3/mcLNormal0.0-0.7 [facility] SystemComment on above:Order Comment: Order Added by Discern Expert.Performed By: #### [id number] ####OVIDIO [address] [place], [place] [address]Sxnyyflzj/100 WBC Auto (Bld)10.2 %High0.0-10.0[facility] Northwest HospitalComment on above:Order Comment: Order Added by Discern Expert.Performed By: #### [id number] ####OVIDIO [address] [place], [place] [address]Goqhlo Absolute2.3 E3/mcLNormal1.4-6.5SMercy Hospital Booneville Comment on above:Order Comment: Order Added by Discern Expert.Performed By: #### [id number] ####OVIDIO [address] [place], [place] [address]Yfubpj Auto57.8 % Rrxjzc91.0-75.0[facility] HospitalComment on above:Order Comment: Order Added by Discern Expert.Performed By: #### [id number] ####OVIDIO [address] [place], [place] [address]FAM w/ Auto Diffon 10-30-7385Kaympdaeljp distribution width Auto Ratio (RBC)19.9 %High11.5-14.5SMercy Hospital BoonevilleComment on above:Performed By: #### [id number] ####OVIDIO [address] [place], [place] [address]Jhpohblegb Auto Volume Fraction (Bld)26.5 %Low36.0-48.0 [facility] HospitalComment on above:Performed By: #### [id number] ####OVIDIO [address] [place], [place] [address]Zkkchahorw mass conc (Bld)8.7 g/dLLow12.0-16.0[facility] HospitalComment on above:Performed By: #### [id number] ####OVIDIO AvalosLgcNaib[address] [place], [place] [address]WAK Auto Entitic mass (RBC)29.6 pcNmnbiu37.0-31.0[facility] HospitalComment on above:Performed By: #### [id number] ####OVIDIO [address] [place], [place] [address]EXWI Auto mass conc (RBC)32.9 g/dLLow33.0-37.0[facility] Health SystemComment on above:Performed By: #### [id number] ####OVIDIO [address] [place] [id number] Auto Entitic volume (RBC)89.8 wLVtvset89.0-100.0 [facility] HospitalComment on above:Performed By: #### [id number] ####OVIDIO [address] [place], [place] [address]Platelet mean volume Auto Entitic volume (Bld)10.5 fLNormal7.4-11.0[facility] SystemComment on above:Performed By: #### [id number] ####OVIDIO [address] [place], [place] [address]Platelets Auto #/vol (Bld)117 E3/fgBUpm978-220UxkzzogdwArkansas Children'S Northwest HospitalComment on above:Performed By: #### [id number] ####OVIDIO [address] [place], [place] [address]RBC Auto #/vol (Bld)2.95 E6/mcLLow3.90-5.40SShriners Hospital for Children SystemComment on above:Performed By: #### [id number] ####OVIDIO [address] [place], [place] [address]WBC Auto #/vol (Bld)4.0 E3/mcLNormal 3.6-11.0[facility] HospitalComment on above:Performed By: #### [id number] ####OVIDIO [address] [place], [place] [address]CRPon 47-97-9801SFV mass conc0.83 mg/dLNormal0.00-1.00[facility] SystemComment on above:Performed By: #### [id number] ####OVIDIO [address]osFpiSped[address] [place], [place] [address]Morphon 77-05-1700Qgunjuovjqjg Auto Ql (Bld)1+NormalArkansas Children'S Northwest HospitalComment on above:Order Comment: Order Added by Discern Expert. Performed By: #### [id number] ####OVIDIO [address] [place] [address] Hypochromasia1+[facility] Medical CenterComment on above:Order Comment: Order Added by Discern Expert.Performed By: #### [id number] ####OVIDIO AvalosXikDhai[address] [place], [place] [address]TTF morphology finding Nom (Bld)SEE MORPHOLOGYSummit Medical CenterComment on above:Order Comment: Order Added by Discern Expert.Performed By: #### [id number] ####OVIDIO AvalosQprNhyz[address] [place], [place] [address]Ats Rate Automatedon 13-88-0692Cht Rate Automated 15 mm/hrSummit Medical CenterComment on above:Result Comment: AGE-SPECIFIC REFERENCE RANGES FOR SEDIMENTATION RATE AUTOMATED REFERENCE RANGE - MM/HR AGE MEN WOMEN 0-2 0-2 - PUBERTY 3-13 3-13 PUBERTY - 50 YRS 0-15 0-20 > 50 YRS0-20 0-30Performed By: #### [id number] ####OVIDIO Hematology Manual Knjxhtpoog[address] [place], [place] [address]qmmuf morphon 09-20-2018 Platelet morphology finding Nom (Bld)[facility] CenterComment on above:Performed By: #### [id number] ####OVIDIO AvalosVulFlkp[address]4 [place], [place] [address]Cpspdsvue Auto #/vol (Bld)[facility] Medical CenterComment on above:Performed By: #### [id number] ####OVIDIO MriMdlx7434 [place], [place] [address]WVTXF UREA NITROGENon 32-25-6467Bjrs nitrogen mass conc (Bld)19 mg/dLNormal7-20[facility] HospitalComment on above:Performed By: #### ACBC, ESR, BUN, CREAT, CREACT, FX ####Testing performed at [address] [address]Q REACTIVE PROTEINon 89-77-4159CSX mass conc18.5 mg/LHigh0-10.0[facility] Memorial HospitalComment on above:Performed By: #### ACBC, ESR, BUN, CREAT, CREACT, FX ####Testing performed at [address] [address]AEMqr 09-13-2018 ABSOLUTE BAS0.1 L23IxvvvtErlteLovelace Regional Hospital, [place] on above:Performed By: #### ACBC, ESR, BUN, CREAT, CREACT, FX ####Testing performed at [place] [address]ABSOLUTE EOS0.20 O27IelrcrLyrteLovelace Regional Hospital, [place] on above:Performed By: #### ACBC, ESR, BUN, CREAT, CREACT, FX ####Testing performed at [place] [address]ABSOLUTE NEUTROPHIL COUNT2.5 i48Hpmoql5.0-7.0[facility] on above:Performed By: #### ACBC, ESR, BUN, CREAT, CREACT, FX ####Testing performed at [place] [address]Basophils/100 WBC Auto (Bld)1.4 %Normal0.0-2.0[facility] on above:Performed By: #### ACBC, ESR, BUN, CREAT, CREACT, FX ####Testing performed at [place] [address]DTYPEAUTO DIFFEastern New Mexico Medical Center on above:Performed By: #### ACBC, ESR, BUN, CREAT, CREACT, FX ####Testing performed at [place] [address]Eosinophils/100 WBC Auto (Bld)3.5 %Normal0.0-11.0 [facility] on above:Performed By: #### ACBC, ESR, BUN, CREAT, CREACT, FX ####Testing performed at [place] [address]Lymphocytes Auto #/vol (Bld)1.10 J66UwnptnVjtjuEastern New Mexico Medical Center on above:Performed By: #### ACBC, ESR, BUN, CREAT, CREACT, FX ####Testing performed at [place] [address]Lymphocytes/100 WBC Auto (Bld)27.0 %Wyhiuf16.0-55.0[facility] on above:Performed By: #### ACBC, ESR, BUN, CREAT, CREACT, FX ####Testing performed at [address] [address]Vwyfsjzqt Auto #/vol (Bld)0.4 Q77DltdmzVafufSaint Clare's Hospital at Boonton TownshipComment on above:Performed By: #### ACBC, ESR, BUN, CREAT, CREACT, FX ####Testing performed at [address] [address]Crbhvvavg/100 WBC Auto (Bld)9.4 %Normal0.0-10.0[facility] on above:Performed By: #### ACBC, ESR, BUN, CREAT, CREACT, FX ####Testing performed at [place] [address]Neutrophils/100 WBC Auto (Bld) 58.7 %Sqtdjc81.0-75.0[facility]ow[facility] Hospitalment on above:Performed By: #### ACBC, ESR, BUN, CREAT, CREACT, FX ####Testing performed at [place] [address]Erythrocyte distribution width Auto Ratio (RBC)17.6 %High11.5-14.5ANationwide Children's Hospital on above:Performed By: #### ACBC, ESR, BUN, CREAT, CREACT, FX ####Testing performed at [place] [address]Hematocrit Auto Volume Fraction (Bld)26.2 %Low36.0-48.0[facility] on above:Performed By: #### ACBC, ESR, BUN, CREAT, CREACT, FX ####Testing performed at [place] [address]Hemoglobin mass conc (Bld)8.8 g/dLLow12.0-16.0[facility] on above:Performed By: #### ACBC, ESR, BUN, CREAT, CREACT, FX ####Testing performed at [place] [address]MCH Auto Entitic mass (RBC)29.3 toOeaqih93.0-35.0 [facility] on above:Performed By: #### ACBC, ESR, BUN, CREAT, CREACT, FX ####Testing performed at [place] [address]MCHC Auto mass conc (RBC)33.7 g/pACkutjb44.0-37.0[facility] on above:Performed By: #### ACBC, ESR, BUN, CREAT, CREACT, FX ####Testing performed at [place] [address]MCV Auto Entitic volume (RBC)86.9 bRGlfxty59.0-100.0[facility] on above:Performed By: #### ACBC, ESR, BUN, CREAT, CREACT, FX ####Testing performed at [place] [address]Platelet mean volume Auto Entitic volume (Bld)10.1 fLNormal 7.4-11.0[facility] on above:Performed By: #### ACBC, ESR, BUN, CREAT, CREACT, FX ####Testing performed at [place] [address]Platelets Auto #/vol (Bld)130 /cmmNormal 130.0-400.0[facility] on above:Performed By: #### ACBC, ESR, BUN, CREAT, CREACT, FX ####Testing performed at [place] [address]RBC Auto #/vol (Bld)3.01 /cmmLow4.0-5.4ANationwide Children's Hospital on above:Performed By: #### ACBC, ESR, BUN, CREAT, CREACT, FX ####Testing performed at [place] [address]WBC Auto #/vol (Bld)4.2 /cmmNormal3.6-11.0[facility] on above:Performed By: #### ACBC, ESR, BUN, CREAT, CREACT, FX ####Testing performed at [place] [address]CREATININE,SERUMon 13-03-1546Ntvxnrmyer mass conc1.5 mg/dLHigh0.52-1.04 [facility] on above:Performed By: #### ACBC, ESR, BUN, CREAT, CREACT, FX ####Testing performed at [place] [address]EST. GFR, Vtfjfexb46 ml/min/1.73sq.[facility] on above:Performed By: #### ACBC, ESR, BUN, CREAT, CREACT, FX ####Testing performed at [place] [address]EST. GFR,Non Xmanqylf95 ml/min/1.73sq.[facility] on above:Performed By: #### ACBC, ESR, BUN, CREAT, CREACT, FX ####Testing performed at [place] [address]GFR/1.73 sq M predicted among non-blacks MDRD vol rate/area (S/P/Bld)Average GFR for 30-39 years old = 109.[facility] Comment on above:Result Comment: Chronic Kidney disease, GFR = <60.Kidney failure, GFR = <15.The GFR estimate is not adjusted for extreme body surface area or acute process, nor has it been validated for women or ethnic groups other than and .Performed By: #### ACBC, ESR, BUN, CREAT, CREACT, FX ####Testing performed at [address] [address]VDNiq 28-59-8222UTR Velocity (Bld)49 mm/hHigh0-15 [facility] on above:Performed By: #### ACBC, ESR, BUN, CREAT, CREACT, FX ####Testing performed at [address] [address]NLA REQUESTon [id number] TOFAX TO DR HARTMAN AT [phone] AND TO [facility] AT [phone] Care Hospital of Southern New MexicoComment on above:Performed By: #### PHY, BUN, CREAT, FX ####Testing performed at [address] [address]IYB REQUEST on 56-82-1145EIT [id number] Ascutney HospitalCommckenzie memorial hospital on above: Performed By: #### FX ####Testing performed at [place] [address]BLOOD UREA NITROGENon 24-24-9268Jelz nitrogen mass conc (Bld)21 mg/dLHigh7-20[facility] HospitalComment on above:Performed By: #### PHY, BUN, CREAT, FX ####Testing performed at [place] [address]CREATININE,SERUMon 37-55-7732Clmxzocpxh mass conc 1.4 mg/dLHigh0.52-1.04[facility] HospitalComment on above:Performed By: #### PHY, BUN, CREAT, FX ####Testing performed at [address] [address]HTL. GFR, Uwyumzwf17 ml/min/1.73sq.Northwestern Medical CenterCommckenzie memorial hospital on above:Performed By: #### PHY, BUN, CREAT, FX ####Testing performed at [address] [address]JJY. GFR,Non Somdpkrp02 ml/min/1.73sq.[facility] Comment on above:Performed By: #### PHY, BUN, CREAT, FX ####Testing performed at [address] [address]BSJ/1.73 sq M predicted among non-blacks MDRD vol rate/area (S/P/Bld)Average GFR for 30-39 years old = 109.[facility] Ascutney HospitalCommckenzie memorial hospital on above:Result Comment: Chronic Kidney disease, GFR = <60.Kidney failure, GFR = <15.The GFR estimate is not adjusted for extreme body surface area or acute process, nor has it been validated for women or ethnic groups other than and . Performed By: #### PHY, BUN, CREAT, FX ####Testing performed at [address] [address]JFQ REQUESTon [id number] TO [phone] [facility] Ascutney HospitalComment on above:Performed By: #### PHY, BUN, CREAT, FX ####Testing performed at [address] [address]PZI NEW PHYSICIANon 07-01-0076WDG NEW PHYSICIAN DEVAN UPMount Ascutney HospitalComment on above:Performed By: #### PHY, BUN, CREAT, FX ####Testing performed at [address] [address]RYQrz 46-70-5173Dnqb nitrogen mass conc24 mg/dLHigh6- [facility] Northwest HospitalComment on above:Performed By: #### [id number] ####OVIDIO Rpmuogjx2145 [place], [place] [address]Czewfbcwwgos 08-27-2018 Creatinine mass conc1.6 mg/dLHigh0.5-1.1SMercy Hospital BoonevilleComment on above:Performed By: #### [id number] ####OVIDIO Qpvloouq5079 [place], [place] [address]jOBLba 33-33-3899vUSX AA43 mL/min/1.73 x1BajnygFdhugefdlSummit Medical CenterComment on above:Order Comment: Order added by Discern Expert.Performed By: #### [id number] ####OVIDIO AvalosLtrTcfk1120 [place], [place] [address]PTL/1.73 sq M predicted among non-blacks MDRD vol rate/area (S/P/Bld)36 mL/min/1.73 m2 Summit Medical CenterComment on above:Order Comment: Order added by Discern Expert.Performed By: #### [id number] ####OVIDIO AvalosUwgRqtg4710 [place], [place] [address]Kxhu,Tissueon 37-43-1306Cljm,TissueSpecimen Description .TISSUE EPIDURAL TISSUE Special Requests NOT [...] NOT REPORTED Trimethoprim/Sulfa <=10 SUSCEPTIBLE Vancomycin <=0.5 SUSCEPTIBLEPremier HealthComment on above:Performed By: #### LACWB #### [employer] [address] [place] [address]608 Cult,TissueSpecimen Description .SPINE .TISSUE T4 LAMINA [...] NOT REPORTED Trimethoprim/Sulfa <=10 SUSCEPTIBLE Vancomycin <=0.5 SUSCEPTIBLEPremier HealthComment on above:Performed By: #### LACWB #### [employer] [address] [place] [address]608 Basic Metabolic Profon 08-25-2018(cont.)Premier HealthComment on above:Result Comment: Average GFR for 30-39 years old: 107 mL/min/1.73sq m Chronic Kidney Disease: <60 mL/min/1.73sq m Kidney failure: <15 mL/min/1.73sq m eGFR calculated using average adult body mass. Additional eGFR calculator available at: http://www.[employer]com/multiple_crcl_2012.htmPerformed By: #### TERRYWB #### [facility] [address] [place] [address]35 Anion gap molar conc14 mmol/LNormal9-17[facility] Flower HospitalComment on above:Performed By: #### LACWB #### [facility] [employer] [address] [place] [address] 59385 Calcium mass conc9.1 mg/dLNormal8.6-10.4[facility] Flower HospitalComment on above:Performed By: #### LACWB #### [facility] [employer] [address] [place] [address] 94380 Chloride molar conc96 mmol/ZGea95-751JxbpwPromedica Flower HospitalComment on above:Performed By: #### LACWB #### [facility] [employer] [address] [place] [address] 20524 CO2 molar conc23 mmol/UTfrpml30-82JfvycPromedica Flower Hospital Comment on above:Performed By: #### LACWB #### [facility] [employer] [address] [place] [address] 37260 Creatinine mass conc1.52 mg/dLHigh0.50-0.90Prom[facility] Flower HospitalComment on above:Performed By: #### LACWB #### [facility] [address] [place] [address] 48130 GFR, Amer46 mL/minLow>60[facility] Comment on above:Performed By: #### LACWB #### [facility] [employer] [address] [place] [address] 10348 GFR,non Amer38 mL/minLow>60[facility] Comment on above:Performed By: #### LACWB #### [facility] [employer] [address] [place] [address] 80822 Glucose mass conc95 mg/fRFsfjlx81-90IwqbfVentura County Medical CenterComment on above:Performed By: #### LEATHAB #### [facility] [employer] [address] [place] [address] 50914 Potassium molar conc4.5 mmol/LNormal3.7-5.3MVentura County Medical CenterComment on above:Performed By: #### LEATHAB #### [facility] [employer] [address] [place] [address] 37738 Sodium molar mhws396 mmol/AFxa259-919KuyzpPromedica Flower HospitalComment on above:Performed By: #### LACHELLE #### [facility] [employer] [address] [place] [address] 71030 Urea nitrogen mass conc43 mg/dLHigh6-20[facility]lower HospitalComment on above:Performed By: #### LACHELLE #### [facility] [employer] [address] [place] [address] 31171 BUN/CRE RatioNOT REPORTEDSaint Joseph Hospital Westal9-20[facility] Comment on above:Performed By: #### LEATHAB #### [facility] [employer] [address] [place] [address] 91101 Staging:NOT REPORTEDNormalPromedica Flower HospitalComment on above:Performed By: #### LACHELLE #### [facility] [employer] [address] [place] [address] 57679 CBC with Diffon [id number]. Basophil0.07 k/uLNormal0.00-0.20 [facility] HospitalComment on above:Performed By: #### LEATHAB #### [facility] [employer] [address] [place] [address] 28321 Abs.Imm.Granulocyte0.08 k/uLNormal0.00-0.30[facility] Flower HospitalComment on above:Performed By: #### LACWB #### [address] [address] Abs.Neutrophil (Seg)5.77 k/uLNormal1.50-8.10Prom[facility] Flower HospitalComment on above:Performed By: #### LACWB #### [address] [address] Basophils/100 WBC (Bld)1 %Normal0-2MercWhite Memorial Medical Center Comment on above:Performed By: #### TERRYWB #### [address] [address] Eosinophils #/vol (Bld)0.12 10*3/uLNormal0.00-0.44[facility]lower HospitalComment on above:Performed By: #### TERRYWB #### [address] [address] Eosinophils/100 WBC (Bld)1 %Normal1-4[facility]lower HospitalComment on above:Performed By: #### TERRYWB #### [address] [address] Immature granulocytes #/vol (Bld)1 %Jkvv9HrdruSutter Medical Center of Santa RosaComment on above:Performed By: #### LACWB #### [address] [address] Lymphocytes #/vol (Bld)1.83 10*3/uLNormal1.10-3.70[facility]lower HospitalComment on above:Performed By: #### LACWB #### [address] [address] Lymphocytes/100 WBC (Bld)21 %Dwo96-53JthbaPromedica Flower HospitalComment on above:Performed By: #### LACWB #### [facility] [address] [place] [address] 70092 Monocytes #/vol (Bld)0.92 10*3/uLNormal0.10-1.20[facility] HospitalComment on above:Performed By: #### LACWB #### [facility] [employer] [address] [place] [address] 86856 Monocytes/100 WBC (Bld)11 %Normal3-12[facility] Flower HospitalComment on above:Performed By: #### LACWB #### [facility] [employer] [address] [place] [address] 44690 Neutrophil (Seg)66 %Eyxw39-69XxfscPromedica Flower Hospital Comment on above:Performed By: #### LACWB #### [facility] [employer] [address] [place] [address] 58282 Erythrocyte distribution width Ratio (RBC)14.6 %High11.8-14.4Prom[facility] Flower HospitalComment on above:Performed By: #### LACWB #### [facility] [employer] [address] [place] [address] 03449 Hematocrit Volume Fraction (Bld)32.6 %Low36.3-47.1MVentura County Medical CenterComment on above:Performed By: #### LACWB #### [facility] [employer] [address] [place] [address] 40259 Hemoglobin mass conc (Bld)10.0 g/dLLow11.9-15.1MVentura County Medical CenterComment on above:Performed By: #### LACWB #### [facility] [employer] [address] [place] [address] 94185 MCH Entitic mass (RBC)28.2 uiXevgqz08.2-33.5[facility] HospitalComment on above:Performed By: #### LACWB #### [facility] [address] [place] [address] 79712 MCHC mass conc (RBC)30.7 g/sQRqalxf86.4-34.8[facility] HospitalComment on above:Performed By: #### LACWB #### [facility] [employer] [address] [place] [address] 82479 MCV Entitic volume (RBC)91.8 zNEhfkop61.6-102.9[facility] HospitalComment on above:Performed By: #### LACWB #### [facility] [employer] [address] [place] [address] 53604 NRBC Automated0.0 per 100 WBCNormal0.0Prom[facility]lower HospitalComment on above:Performed By: #### LACWB #### [facility] [employer] [address] [place] [address] 81410 Platelet mean volume Entitic volume (Bld)10.4 fLNormal8.1-13.5[facility] HospitalComment on above:Performed By: #### LACWB #### [facility] [employer] [address] [place] [address] 06282 Platelets #/vol (Bld)292 10*3/wBIahsii608-661QbkpcPromedica Flower HospitalComment on above:Performed By: #### LACWB #### [facility] [employer] [address] [place] [address] 77283 RBC #/vol (Bld)3.55 10*6/uLLow3.95-5.11[facility] HospitalComment on above:Performed By: #### LACWB #### [facility] [employer] [address] [place] [address] 57872 RBC morphology finding Nom (Bld)ANISOCYTOSIS PRESENTNormalPromedica Flower HospitalComment on above:Performed By: #### LACWB #### [address] [address] WBC #/vol (Bld)8.8 10*3/uLNormal3.5-11.3[facility] Kings HospitalComment on above:Performed By: #### LACWB #### [address] [address] Auto Diff PerformedNOT REPORTEDPremier HealthComment on above:Performed By: #### LACWB #### [address] [address] Platelets #/vol (Bld)NOT REPORTEDPremier HealthComment on above:Performed By: #### LACWB #### [address] [address] WBC MorphologyNOT REPORTEDPremier Health Comment on above:Performed By: #### LACWB #### [address] [address] Fungi,Direct Examon [id number],Direct ExamSpecimen Description .SPINE .TISSUE T4 LAMINA Special Requests NOT REPORTED Direct Exam NO FUNGAL ELEMENTS SEEN Report Status FINAL 08/25/2018Premier HealthComment on above:Performed By: #### LACWB #### [address] [address] Magnesiumon 56-98-4989Jcyxapeop mass conc2.4 mg/dLNormal1.6-2.6 [facility] HospitalComment on above:Performed By: #### LACWB #### [address] [address] Procalcitoninon 88-72-9995Ehyrhqc mass conc0.13 ng/mLHigh<0.09Prom[facility] Flower HospitalComment on above:Result Comment: Suspected Sepsis: 0.09-0.49 [...] entered into the Change in Procalcitonin Calculator (www.fnywjg-pjp-qezholvqop.[employer]) to determine the patient's Mortality Risk PrognosisPerformed By: #### LACWB #### [employer] [address] [place] [address] [id number] Cult,Aerobe/Anaerobeon 74-36-1345Iyjj,Aerobe/AnaerobeSpecimen Description .SPINE Special Requests NOT REPORTED Direct Exam DUPLICATE ORDER SEE RESULTS FOR TISSUE CULTURE Culture NOT REPORTED Report Status FINAL 08/24/2018Premier HealthComment on above:Performed By: #### SPAG #### [employer] [address] [place] [address] [id number] Cult,Aerobe/AnaerobeSpecimen Description .SPINE Special Requests NOT REPORTED Direct Exam DUPLICATE ORDER SEE RESUULTS FOR TISSUE CULTURE Culture NOT REPORTED Report Status FINAL 08/24/2018Premier HealthComment on above:Performed By: #### SPAG #### [employer] [address] [place] [address] 48399 FLUORO FOR SURGICAL PROCEDURESon 30-26-1427KYZMJM FOR SURGICAL PROCEDURESRadiology exam is complete. No Radiologist dictation. Please follow up with ordering provider. Final resultNoCleveland Clinic Akron GeneralOPERATIVE REPORTon 08-24-2018 OPERATIVE REPORTBLANCHARD VALLEY [facility] [address] [place] [address] OPERATIVE REPORT PATIENT NAME: CELINA GASPAR : 1980 [facility] REC NO: [id number] ROOM: 0431 ACCOUNT NO: [id number] ADMIT DATE: 08/15/2018 PROVIDER: Lita Mccray MD DATE OF PROCEDURE: 08/23/2018 SURGEON: Lita Mccray MD WAITER/WAITRESS HEAD: Eliel Larios DO PREOPERATIVE DIAGNOSIS: Epidural abscess, [...] satisfactory condition. LITA MCCRAY MD CAT/V_SSNCK_I Doc#: [id number] CC: Lita Mccray MDNoalPromedica Flower HospitalProcalcitoninon 53-01-4572Kocszcp mass conc0.16 ng/mLHigh<0.09[facility] Comment on above:Result Comment: Suspected Sepsis: [...] entered into the Change in Procalcitonin Calculator (www.bbzyjr-oqw-zxucvdtypx.[employer]) to determine the patient's Mortality Risk PrognosisPerformed By: #### DIEGO #### [facility] [address] [place] [address] 41399 Basic Metab w/rfx MGon 08-23-2018(cont.)NormalPromedica Flower HospitalComment on above:Result Comment: Average GFR for 30-39 years old: 107 mL/min/1.73sq m Chronic Kidney Disease: <60 mL/min/1.73sq m Kidney failure: <15 mL/min/1.73sq m eGFR calculated using average adult body mass. Additional eGFR calculator available at: http://www.[employer]/multiple_crcl_2012.htmPerformed By: #### DIEGO #### [facility] [address] [place] [address] 54134 Anion gap molar conc14 mmol/LNormal9-17[facility] HospitalComment on above:Performed By: #### DIEGO #### [facility] [address] [place] [address] 71774 Calcium mass conc9.9 mg/dLNormal8.6-10.4[facility] HospitalComment on above:Performed By: #### JANNETHG #### [facility] [address] [place] [address] 12290 Chloride molar conc99 mmol/ECiczrg11-608AvqoePromedica Flower HospitalComment on above:Performed By: #### JANNETHG #### [facility] [address] [place] [address] 08387 CO2 molar conc26 mmol/YToojni35-24ThyxwPromedica Flower Hospital Comment on above:Performed By: #### DIEGO #### [employer] [address] [place] [address] 45287 Creatinine mass conc1.42 mg/dLHigh0.50-0.90Prom[facility] Flower HospitalComment on above:Performed By: #### SPAG #### [employer] [address] [place] [address] 98154 GFR, Amer50 mL/minLow>60[facility] Comment on above:Performed By: #### SPAG #### [employer] [address] [place] [address] 70934 GFR,non Amer41 mL/minLow>60[facility] Comment on above:Performed By: #### SPAG #### [facility] [address] [place] [address] 26182 Glucose mass conc95 mg/yBDjinpe31-87ItrcyVentura County Medical CenterComment on above:Performed By: #### JANNETHG #### [employer] [address] [place] [address] 13749 Potassium molar conc4.9 mmol/LNormal3.7-5.3MVentura County Medical CenterComment on above:Result Comment: SPECIMEN SLIGHTLY HEMOLYZED, RESULTS MAY BE ADVERSELY AFFECTED.Performed By: #### SPAG #### [employer] [address] [place] [address] 92034 Sodium molar kzje951 mmol/PMoxpzh666-285YfynuPromedica Flower HospitalComment on above:Performed By: #### SPAG #### [employer] [address] [place] [address] 96303 Urea nitrogen mass conc31 mg/dLHigh6-20[facility]lower HospitalComment on above:Performed By: #### SPAG #### [employer] [address] [place] [address] 67667 BUN/CRE RatioNOT REPORTEDNormal9-20[facility] Comment on above:Performed By: #### SPAG #### [address] [address] Staging:NOT REPORTEDNormalPromedica Flower HospitalComment on above:Performed By: #### DIEGO #### [address] [address] CBC with Diffon 72-42-3831Flk. Basophil0.06 k/uLNormal0.00-0.20 [facility]lower HospitalComment on above:Performed By: #### DIEGO #### [address] [address] Abs.Imm.Granulocyte0.22 k/uLNormal0.00-0.30[facility] Flower HospitalComment on above:Performed By: #### DIEGO #### [address] [address]28 Abs.Neutrophil (Seg)4.43 k/uLNormal1.50-8.10Prom[facility] Flower HospitalComment on above:Performed By: #### DIEGO #### [address] [address] Basophils/100 WBC (Bld)1 %Normal0-2MVentura County Medical Center Comment on above:Performed By: #### DIEGO #### [address] [address] Eosinophils #/vol (Bld)0.15 10*3/uLNormal0.00-0.44Prom[facility] Flower HospitalComment on above:Performed By: #### JANNETHG #### [address] [address] Eosinophils/100 WBC (Bld)2 %Normal1-4Prom[facility] Flower HospitalComment on above:Performed By: #### DIEGO #### [address] [address] Erythrocyte distribution width Ratio (RBC)14.4 %Xwhxmd15.8-14.4 [facility]lower HospitalComment on above:Performed By: #### JANNETHG #### [facility] [employer] [address] [place] [address] 57581 Hematocrit Volume Fraction (Bld)33.2 %Low36.3-47.1MVentura County Medical CenterComment on above:Performed By: #### SPAG #### [facility] [employer] [address] [place] [address] 81096 Hemoglobin mass conc (Bld)10.4 g/dLLow11.9-15.1MVentura County Medical CenterComment on above:Performed By: #### JANNETHG #### [address] [address]65[address] Immature granulocytes #/vol (Bld)3 %Tayl0VgoamPromedica Flower HospitalComment on above:Performed By: #### JANNETHG #### [facility] [employer] [address] [place] [address] 27240 Lymphocytes #/vol (Bld)2.22 10*3/uLNormal1.10-3.70Prom[facility] Flower HospitalComment on above:Performed By: #### SPAG #### [facility] [employer] [address] [place] [address] 26487 Lymphocytes/100 WBC (Bld)29 %Prwvlv52-22FpqiwPromedica Flower HospitalComment on above:Performed By: #### SPAG #### [facility] [employer] [address] [place] [address] 04409 MCH Entitic mass (RBC)27.7 mnEufowe97.2-33.5Prom[facility] Flower HospitalComment on above:Performed By: #### SPAG #### [facility] [employer] [address] [place] [address] 42963 MCHC mass conc (RBC)31.3 g/iFYwmfqf74.4-34.8Prom[facility] Flower HospitalComment on above:Performed By: #### JANNETHG #### [employer] [address] [place] [address] 02287 MCV Entitic volume (RBC)88.3 tPXfteip58.6-102.9Prom[facility] Flower HospitalComment on above:Performed By: #### JANNETHG #### [employer] [address] [place] [address] 00655 Monocytes #/vol (Bld)0.63 10*3/uLNormal0.10-1.20[facility] Flower HospitalComment on above:Performed By: #### DIEGO #### [employer] [address] [place] [address] 49710 Monocytes/100 WBC (Bld)8 %Normal3-12Prom[facility] Flower HospitalComment on above:Performed By: #### DIEGO #### [employer] [address] [place] [address] 62999 Neutrophil (Seg)57 %Xvehgi77-12SpmihPromedica Flower Hospital Comment on above:Performed By: #### JANNETHG #### [employer] [address] [place] [address] 46838 NRBC Automated0.0 per 100 WBCNormal0.0Prom[facility]ica Flower HospitalComment on above:Performed By: #### SPAG #### [employer] [address] [place] [address] 17797 Platelets #/vol (Bld)See Reflexed IPF YutvzaPfssrd443-155PvjsePromedica Flower HospitalComment on above:Performed By: #### SPAG #### [employer] [address] [place] [address] 37687 RBC #/vol (Bld)3.76 10*6/uLLow3.95-5.11Prom[facility] Flower HospitalComment on above:Performed By: #### DIEGO #### [facility] [employer] [address] [place] [address] 28080 WBC #/vol (Bld)7.7 10*3/uLNormal3.5-11.3[facility] HospitalComment on above:Performed By: #### DIEGO #### [facility] [employer] [address] [place] [address] 31120 Auto Diff PerformedNOT REPORTEDPremier HealthComment on above:Performed By: #### DIEGO #### [facility] [employer] [address] [place] [address] 17512 Platelet mean volume Entitic volume (Bld)NOT REPORTEDSaint Joseph Hospital Westal8.1-13.5 [facility] HospitalComment on above:Performed By: #### DIEGO #### [facility] [employer] [address] [place] [address] 04719 Platelets #/vol (Bld)NOT REPORTEDNoCleveland Clinic Akron GeneralComment on above:Performed By: #### DIEGO #### [facility] [employer] [address] [place] [address] 54700 RBC morphology finding Nom (Bld)NOT REPORTEDPremier HealthComment on above:Performed By: #### DIEGO #### [facility] [address] [place] [address] 76031 WBC MorphologyNOT REPORTEDPremier Health Comment on above:Performed By: #### DIEGO #### [facility] [employer] [address] [place] [address] 50109 Cult,Bloodon 60-00-1532Kbho,BloodSpecimen Description .BLOOD Special Requests L AC 6ML Culture NO GROWTH 6 DAYS Report Status FINAL 08/23/2018Premier HealthComment on above:Performed By: #### DIEGO #### [address] [address] Cult,BloodSpecimen Description .BLOOD Special Requests L FOREARM 6ML Culture NO GROWTH 6 DAYS Report Status FINAL 08/23/2018NormalPromedica Flower HospitalComment on above:Performed By: #### SPAG #### [address] [address] PLT, Immature Fract.on 29-35-2118Xxhlsxtk, Fluoresc.113 k/uLLow 138-453MerSutter Medical Center of Santa RosaComment on above:Performed By: #### SPAG #### [address] [address] PLT, Immature Fract.3.7 %Normal1.1-10.3[facility] Kings HospitalComment on above:Performed By: #### SPAG #### [address] [address]607 CBC with Diffon [id number]. Basophil0.00 k/uLNormal0.0-0.2MVentura County Medical CenterComment on above:Performed By: #### ULAG #### [address] [address] Abs.Imm.Granulocyte0.30 k/uLNormal0.00-0.30Prom[facility] F[facility] HospitalComment on above:Performed By: #### ULAG #### [address] 67012 Abs.Neutrophil (Seg)4.87 k/uLNormal1.8-7.7Prom[facility] Flower HospitalComment on above:Performed By: #### ULAG #### [address] 62888 Basophils/100 WBC (Bld)0 %Normal0-2MercWhite Memorial Medical Center Comment on above:Performed By: #### ULAG #### [facility] [employer] [address] [place] [address] 49157 Eosinophils #/vol (Bld)0.00 10*3/uLNormal0.0-0.4Prom[facility] HospitalComment on above:Performed By: #### ULAG #### [facility] [employer] [address] [place] [address] 34507 Eosinophils/100 WBC (Bld)0 %Low1-4[facility] Comment on above:Performed By: #### ULAG #### [facility] [employer] [address] [place] [address] 80562 Immature granulocytes #/vol (Bld)4 %Zkcf3JnymcPromedica Flower HospitalComment on above:Performed By: #### ULAG #### [facility] [employer] [address] [place] [address] 14264 Lymphocytes #/vol (Bld)1.88 10*3/uLNormal1.0-4.8Prom[facility] F[facility] HospitalComment on above:Performed By: #### ULAG #### [facility] [employer] [address] [place] [address] 75303 Lymphocytes/100 WBC (Bld)25 %Dccgin48-81SokouPromedica Flower HospitalComment on above:Performed By: #### ULAG #### [facility] [employer] [address] [place] [address] 88105 Monocytes #/vol (Bld)0.45 10*3/uLNormal0.1-0.8Prom[facility] F[facility] HospitalComment on above:Performed By: #### ULAG #### [facility] [employer] [address] [place] [address] 66609 Monocytes/100 WBC (Bld)6 %Normal1-7[facility] Comment on above:Performed By: #### ULAG #### [facility] [employer] [address] [place] [address] 05378 Morphology Interp Rehan (Bld)ANISOCYTOSIS PRESENTNormalPromedica Flower HospitalComment on above:Performed By: #### ULAG #### [facility] [employer] [address] [place] [address] 82586 Neutrophil (Seg)65 %Bjytrz40-14PkijbPromedica Flower Hospital Comment on above:Performed By: #### ULAG #### [facility] [employer] [address] [place] [address] 22201 Erythrocyte distribution width Ratio (RBC)14.5 %High11.8-14.4Prom[facility]ica Flower HospitalComment on above:Performed By: #### ULAG #### [facility] [employer] [address] [place] [address] 42979 Hematocrit Volume Fraction (Bld)38.1 %Kkaxlp00.3-47.1MVentura County Medical CenterComment on above:Performed By: #### ULAG #### [facility] [employer] [address] [place] [address] 89193 Hemoglobin mass conc (Bld)11.5 g/dLLow11.9-15.1MVentura County Medical CenterComment on above:Performed By: #### ULAG #### [facility] [employer] [address] [place] [address] 87838 MCH Entitic mass (RBC)28.3 wxKdsone15.2-33.5Prom[facility] Flower HospitalComment on above:Performed By: #### ULAG #### [facility] [employer] [address] [place] [address] 80591 MCHC mass conc (RBC)30.2 g/pTAfdatf02.4-34.8Prom[facility] F[facility] HospitalComment on above:Performed By: #### ULAG #### [facility] [employer] [address] [place] [address] 96420 MCV Entitic volume (RBC)93.6 cATunwuz34.6-102.9Prom[facility] Flower HospitalComment on above:Performed By: #### ULAG #### [facility] [address] [place] [address] 48448 NRBC Automated0.0 per 100 WBCNormal0.0Promedica Flower HospitalComment on above:Performed By: #### ULAG #### [facility] [employer] [address] [place] [address] 51566 Platelet mean volume Entitic volume (Bld)10.7 fLNormal8.1-13.5Promedica Flower HospitalComment on above:Performed By: #### ULAG #### [address] [address] Platelets #/vol (Bld)265 10*3/xTHdvrdb739-505JeucfPromedica Flower HospitalComment on above:Performed By: #### ULAG #### [facility] [employer] [address] [place] [address] 67214 RBC #/vol (Bld)4.07 10*6/uLNormal3.95-5.11Promedica Flower HospitalComment on above:Performed By: #### ULAG #### [address] [address] WBC #/vol (Bld)7.5 10*3/uLNormal3.5-11.3MVentura County Medical CenterComment on above:Performed By: #### ULAG #### [facility] [employer] [address] [place] [address] 37107 Auto Diff PerformedNOT REPORTEDSaint Joseph Hospital WestalPromedica Flower HospitalComment on above:Performed By: #### ULAG #### [address] [address] Platelets #/vol (Bld)NOT REPORTEDNoCleveland Clinic Akron GeneralComment on above:Performed By: #### ULAG #### [facility] [address] [place] [address] 94651 RBC morphology finding Nom (Bld)NOT REPORTEDNoCleveland Clinic Akron GeneralComment on above:Performed By: #### ULAG #### [facility] [employer] [address] [place] [address] 32044 WBC MorphologyNOT REPORTEDNoCleveland Clinic [facility] Comment on above:Performed By: #### ULAG #### [facility] [employer] [address] [place] [address] 57033 Comp Metabolic Pr/rfx MGon 49-12-5333Hjyxwzg mass conc3.2 g/dLLow 3.5-5.2[facility] HospitalComment on above:Performed By: #### ULAG #### [facility] [employer] [address] [place] [address] 26865 Albumin/Globulin mass ratio0.8 {ratio}Low1.0-2.5Promedica Flower HospitalComment on above:Performed By: #### ULAG #### [facility] [address] [place] [address] 59994 Alkaline Phos90 U/VTqaucf86-086MnwylPromedica Flower Hospital Comment on above:Performed By: #### ULAG #### [employer] [address] [place] [address] 15162 ALT enzyme act/vol18 U/LNormal5-33[facility] Comment on above:Performed By: #### ULAG #### [facility] [employer] [address] [place] [address] 16664 AST enzyme act/vol16 U/LNormal<32[facility] Comment on above:Performed By: #### ULAG #### [facility] [address] [place] [address] 59675 Protein mass conc7.0 g/dLNormal6.4-8.3MVentura County Medical CenterComment on above:Performed By: #### ULAG #### [employer] [facility] [place] [address] (cont.)NormalPromedica Flower HospitalComment on above: Result Comment: Average GFR for 30-39 years old: 107 mL/min/1.73sq m Chronic Kidney Disease: <60 mL/min/1.73sq m Kidney failure: <15 mL/min/1.73sq m eGFR calculated using average adult body mass. Additional eGFR calculator available at: http://www.[employer]/multiple_crcl_2012.htmPerformed By: #### ULAG #### [employer] [address] [place] [address] 95617 Anion gap molar conc15 mmol/LNormal9-17Promedica Flower HospitalComment on above:Performed By: #### ULAG #### [employer] [address] [place] [address] 67062 Bilirubin Ql (U)0.34 mg/dLNormal0.3-1.2MVentura County Medical CenterComment on above:Performed By: #### ULAG #### [employer] [address] [place] [address] 87230 Calcium mass conc9.7 mg/dLNormal8.6-10.4Promedica Flower HospitalComment on above:Performed By: #### ULAG #### [employer] [address] [place] [address] 65906 Chloride molar kcdg121 mmol/ZArxcfz97-019SjbcpPromedica Flower HospitalComment on above:Performed By: #### ULAG #### [employer] [address] [place] [address] 05991 CO2 molar conc24 mmol/GSgnmhs26-91MedkzPromedica Flower Hospital Comment on above:Performed By: #### ULAG #### [facility] [address] [place] [address] Creatinine mass conc1.02 mg/dLHigh0.50-0.90Promedica Flower HospitalComment on above:Performed By: #### ULAG #### [facility] [address] [place] [address] 36698 GFR, Amer>60Normal>60Promedica Flower HospitalComment on above:Performed By: #### ULAG #### [facility] [employer] [address] [place] [address] 31915 GFR,non Amer>60Normal>60[facility] Comment on above:Performed By: #### ULAG #### [facility] [employer] [address] [place] [address] 40495 Glucose mass ljxx497 mg/wBGmcn82-63TxucoVentura County Medical Center Comment on above:Performed By: #### ULAG #### [facility] [employer] [address] [place] [address] 70419 Potassium molar conc4.5 mmol/LNormal3.7-5.3MVentura County Medical CenterComment on above:Performed By: #### ULAG #### [facility] [address] [place] [address] 22849 Sodium molar eaga356 mmol/XAvfzzv395-888BhjnyPromedica Flower HospitalComment on above:Performed By: #### ULAG #### [facility] [address] [place] [address] 45777 Urea nitrogen mass conc19 mg/dLNormal6-20Promedica Flower HospitalComment on above:Performed By: #### ULAG #### [facility] [employer] [address] [place] [address] 78674 BUN/CRE RatioNOT REPORTEDNormal9-20[facility] Comment on above:Performed By: #### ULAG #### [facility] [address] [place] [address] 38375 Staging:NOT REPORTEDNoCleveland Clinic Akron GeneralComment on above:Performed By: #### ULAG #### [facility] [address] [place] [address] 40547 Magnesiumon 13-73-2071Rtgyqtzib mass conc2.4 mg/dLNormal1.6-2.6 [facility] Flower HospitalComment on above:Performed By: #### ULAG #### [facility] [employer] [address] [place] [address] 34810 Vancomycin Troughon 19-60-7144Jgakxpyacu Refffb15.2 ug/mLCritically high10.0-20.0Promedica Flower HospitalComment on above:Result Comment: Higher trough serum vancomycin concentrations of 15-20 ug/mL are recommended for complicated infections such as bacteremia, endocarditis, osteomyelitis, meningitis, and hospital acquired pneumonia. ADDED ONPerformed By: #### ULAG #### [facility] [employer] [address] [place] [address] 02996 Date last dose,NOT REPORTEDNoCleveland Clinic [facility] General Comment on above:Performed By: #### ULAG #### [facility] [employer] [address] [place] [address] 55797 Dose amount,NOT REPORTEDNormalPromedica Flower Hospital Comment on above:Performed By: #### ULAG #### [employer] [address] [place] [address] 00911 Time last dose,NOT REPORTEDNoC[facility] Clinic [facility] Comment on above:Performed By: #### ULAG #### [facility] [address] [place] [address] 08626 CBC with Diffon 51-72-4293Rdb. Basophil0.08 k/uLNormal0.00-0.20 Prom[facility] Flower HospitalComment on above:Performed By: #### ULAG #### [address] [address] Abs.Imm.Granulocyte0.50 k/uLHigh0.00-0.30Prom[facility]ica Flower HospitalComment on above:Performed By: #### ULAG #### [address] [address] Abs.Neutrophil (Seg)4.73 k/uLNormal1.50-8.10Prom[facility]ica Flower HospitalComment on above:Performed By: #### ULAG #### [address] [address] Basophils/100 WBC (Bld)1 %Normal0-2MVentura County Medical Center Comment on above:Performed By: #### ULAG #### [address] [address] Eosinophils #/vol (Bld)0.17 10*3/uLNormal0.00-0.44Promedica Flower HospitalComment on above:Performed By: #### ULAG #### [address] [address] Eosinophils/100 WBC (Bld)2 %Normal1-4Promedica Flower HospitalComment on above:Performed By: #### ULAG #### [address] [address] Immature granulocytes #/vol (Bld)6 %Oeyi8YednpPromedica Flower HospitalComment on above:Performed By: #### ULAG #### [address] [address] Lymphocytes #/vol (Bld)2.24 10*3/uLNormal1.10-3.70Promedica Flower HospitalComment on above:Performed By: #### ULAG #### [facility] [employer] [address] [place] [address] 77025 Lymphocytes/100 WBC (Bld)27 %Ggjnuv88-50CytrgPromedica Flower HospitalComment on above:Performed By: #### ULAG #### [facility] [employer] [address] [place] [address] 67203 Monocytes #/vol (Bld)0.58 10*3/uLNormal0.10-1.20Prom[facility] Flower HospitalComment on above:Performed By: #### ULAG #### [facility] [employer] [address] [place] [address] 17498 Monocytes/100 WBC (Bld)7 %Normal3-12Promedica Flower HospitalComment on above:Performed By: #### ULAG #### [facility] [employer] [address] [place] [address] 61481 Morphology Interp Rehan (Bld)ANISOCYTOSIS PRESENTNormalPromedica Flower HospitalComment on above:Performed By: #### ULAG #### [facility] [employer] [address] [place] [address] 73555 Neutrophil (Seg)57 %Ajfvhe06-43UstzuPromedica Flower Hospital Comment on above:Performed By: #### ULAG #### [facility] [employer] [address] [place] [address] 83318 Erythrocyte distribution width Ratio (RBC)14.6 %High11.8-14.4Promedica Flower HospitalComment on above:Performed By: #### ULAG #### [facility] [employer] [address] [place] [address] 22479 Hematocrit Volume Fraction (Bld)38.5 %Zgcpox02.3-47.1MVentura County Medical CenterComment on above:Performed By: #### ULAG #### [facility] [address] [place] [address] 19143 Hemoglobin mass conc (Bld)11.5 g/dLLow11.9-15.1MVentura County Medical CenterComment on above:Performed By: #### ULAG #### [facility] [employer] [address] [place] [address] 58871 MCH Entitic mass (RBC)28.2 mgZpxihn57.2-33.5Promedica Flower HospitalComment on above:Performed By: #### ULAG #### [address] [address] MCHC mass conc (RBC)29.9 g/uOVqjqpp42.4-34.8Prom[facility]ica Flower HospitalComment on above:Performed By: #### ULAG #### [address] [address] MCV Entitic volume (RBC)94.4 uMGcitkp83.6-102.9Promedica Flower HospitalComment on above:Performed By: #### ULAG #### [address] [address] NRBC Automated0.0 per 100 WBCNormal0.0Promedica Flower HospitalComment on above:Performed By: #### ULAG #### [address] [address] Platelet mean volume Entitic volume (Bld)10.5 fLNormal8.1-13.5Promedica Flower HospitalComment on above:Performed By: #### ULAG #### [address] [address] Platelets #/vol (Bld)264 10*3/uOPsrshl221-092VhrxhPromedica Flower HospitalComment on above:Performed By: #### ULAG #### [facility] [employer] [address] [place] [address] 95244 RBC #/vol (Bld)4.08 10*6/uLNormal3.95-5.11Prom[facility] Flower HospitalComment on above:Performed By: #### ULAG #### [employer] [address] [place] [address] 9[address]38 WBC #/vol (Bld)8.3 10*3/uLNormal3.5-11.3[facility] HospitalComment on above:Performed By: #### ULAG #### [employer] [address] [place] [address] 77530 Auto Diff PerformedNOT REPORTEDPremier HealthComment on above:Performed By: #### ULAG #### [employer] [address] [place] [address] 31244 Platelets #/vol (Bld)NOT REPORTEDPremier HealthComment on above:Performed By: #### ULAG #### [employer] [address] [place] [address] 97394 RBC morphology finding Nom (Bld)NOT REPORTEDNoCleveland Clinic Akron GeneralComment on above:Performed By: #### ULAG #### [employer] [address] [place] [address] 04357 WBC MorphologyNOT REPORTEDPremier Health Comment on above:Performed By: #### ULAG #### [employer] [address] [place] [address] 41689 Comp Metabolic Pr/rfx MGon 08-21-2018(cont.)Premier HealthComment on above:Result Comment: Average GFR for 30-39 years old: 107 mL/min/1.73sq m Chronic Kidney Disease: <60 mL/min/1.73sq m Kidney failure: <15 mL/min/1.73sq m eGFR calculated using average adult body mass. Additional eGFR calculator available at: http://www.[employer]rp.com/multiple_crcl_2012.htmPerformed By: #### ULAG #### [facility] [address] [place] [address] 54878 Albumin mass conc2.9 g/dLLow3.5-5.2MVentura County Medical Center Comment on above:Performed By: #### ULAG #### [facility] [employer] [address] [place] [address] 69850 Albumin/Globulin mass ratio0.7 {ratio}Low1.0-2.5Promedica Flower HospitalComment on above:Performed By: #### ULAG #### [facility] [employer] [address] [place] [address] 26308 Alkaline Phos98 U/IDeeqrw92-854ExjlkPromedica Flower Hospital Comment on above:Performed By: #### ULAG #### [facility] [employer] [address] [place] [address] 12205 ALT enzyme act/vol19 U/LNormal5-33[facility] Comment on above:Performed By: #### ULAG #### [facility] [employer] [address] [place] [address] 27118 Anion gap molar conc14 mmol/LNormal9-17Prom[facility] Flower HospitalComment on above:Performed By: #### ULAG #### [facility] [employer] [address] [place] [address] 14112 AST enzyme act/vol21 U/LNormal<32[facility] Comment on above:Performed By: #### ULAG #### [facility] [employer] [address] [place] [address] 40929 Bilirubin Ql (U)0.32 mg/dLNormal0.3-1.2MVentura County Medical CenterComment on above:Performed By: #### ULAG #### [facility] [employer] [address] [place] [address] 96707 Calcium mass conc9.1 mg/dLNormal8.6-10.4Prom[facility] Flower HospitalComment on above:Performed By: #### ULAG #### [address] [address] Chloride molar qjjw514 mmol/BAiwsxh01-212NghejPromedica Flower HospitalComment on above:Performed By: #### ULAG #### [address] [address] CO2 molar conc23 mmol/IPfitoj39-61ToqzjPromedica Flower Hospital Comment on above:Performed By: #### ULAG #### [address] [address] Creatinine mass conc0.90 mg/dLNormal0.50-0.90Prom[facility]ica Flower HospitalComment on above:Performed By: #### ULAG #### [address] [address] GFR, Amer>60Normal>60Prom[facility] Flower HospitalComment on above:Performed By: #### ULAG #### [address] [address] GFR,non Amer>60Normal>60[facility] Comment on above:Performed By: #### ULAG #### [facility] [employer] [address] [place] [address] 62262 Glucose mass sjgw791 mg/qKLsjk35-39WxjfuVentura County Medical Center Comment on above:Performed By: #### ULAG #### [address] [address] Potassium molar conc4.6 mmol/LNormal3.7-5.3MVentura County Medical CenterComment on above:Performed By: #### ULAG #### [facility] [employer] [address] [place] [address] 38339 Protein mass conc6.9 g/dLNormal6.4-8.3[facility] HospitalComment on above:Performed By: #### ULAG #### [employer] [address] [place] [address] 02513 Sodium molar wpkt070 mmol/RCsfmlz777-558OsbqrPromedica Flower HospitalComment on above:Performed By: #### ULAG #### [employer] [address] [place] [address] 05443 Urea nitrogen mass conc17 mg/dLNormal6-20Prom[facility] Flower HospitalComment on above:Performed By: #### ULAG #### [employer] [address] [place] [address] 97656 BUN/CRE RatioNOT REPORTEDShreveport9-20[facility] Comment on above:Performed By: #### ULAG #### [employer] [address] [place] [address] 27167 Staging:NOT REPORTEDNoCleveland Clinic Akron GeneralComment on above:Performed By: #### ULAG #### [employer] [address] [place] [address] 24485 Cult,Bloodon [id number],BloodSpecimen Description .BLOOD Special Requests L AC 20ML Culture POSITIVE Blood Culture CALLED TO MIS Medina [phone] DIRECT GRAM STAIN FROM BOTTLE: GRAM POSITIVE COCCI IN CLUSTERS METHICILLIN RESISTANT STAPHYLOCOCCUS AUREUS For susceptibility, refer to previous culture. Report Status FINAL 08/21/2018Premier HealthComment on above:Performed By: #### ULAG #### [employer] [address] [place] [address] 02219 MRI FOOT LEFT W WO CONTRASTon [id number] FOOT LEFT W WO CONTRAST EXAMINATION: MRI [...] by: Murali Goff MD 08/21/18 Final resultNormalMercy Sierra Kings HospitalMagnesiumon 08-21-2018 Magnesium mass conc2.4 mg/dLNormal1.6-2.6[facility] HospitalComment on above:Performed By: #### ULAG #### [facility] [employer] [address] [address] Procalcitoninon 10-04-8132Bvyuaqg mass conc0.27 ng/mLHigh<0.09[facility] HospitalComment on above:Result Comment: Suspected Sepsis: 0.09-0.49 [...] entered into the Change in Procalcitonin Calculator (www.bxmkdy-zhj-tmsjvpbqpu.com) to determine the patient's Mortality Risk PrognosisPerformed By: #### SEBAG #### [facility] [employer] [address] [place] [address] [phone]-Vaqegzpr Proteinon 18-35-7108WFB mass conc50.4 mg/LHigh0.0-5.0 [facility] Flower HospitalComment on above:Performed By: #### LALO, TROPI, PRCAL, MYCM #### [employer] [address] [place] [place] [address] CBC with Diffon [id number]. Basophil0.08 k/uLNormal0.0-0.2Mmarietta osteopathic clinicy Sierra Kings HospitalComment on above:Performed By: #### LALO, TROPI, PRCAL, MYCM #### [employer] [address] [place], [place] [address] Abs.Imm.Granulocyte0.42 k/uLHigh0.00-0.30MerSutter Medical Center of Santa RosaComment on above:Performed By: #### LALO, DAMIENI, PRCAL, MYCM #### [address] [address] Abs.Neutrophil (Seg)4.57 k/uLNormal1.8-7.7Prom[facility] Flower HospitalComment on above:Performed By: #### LALO, TROPI, PRCAL, MYCM #### [address] [address] Basophils/100 WBC (Bld)1 %Normal0-2MVentura County Medical Center Comment on above:Performed By: #### LALO, TROPI, PRCAL, MYCM #### [place] [address] Eosinophils #/vol (Bld)0.25 10*3/uLNormal0.0-0.4Prom[facility] Flower HospitalComment on above:Performed By: #### LALO, DAMIENI, PRCAL, MYCM #### [address] [address] Eosinophils/100 WBC (Bld)3 %Normal1-4Prom[facility] Flower HospitalComment on above:Performed By: #### LALO, TROPI, PRCAL, MYCM #### [address] [address] Immature granulocytes #/vol (Bld)5 %Dqgq8KbxkvSutter Medical Center of Santa RosaComment on above:Performed By: #### LALO, TROPI, PRCAL, MYCM #### [address] [address] Lymphocytes #/vol (Bld)2.32 10*3/uLNormal1.0-4.8Prom[facility] Flower HospitalComment on above:Performed By: #### LACDS, TROPI, PRCAL, MYCM #### [facility] [address] [place] [address] 39492 Lymphocytes/100 WBC (Bld)28 %Eqqulr14-14ZixgrPromedica Flower HospitalComment on above:Performed By: #### LACDS, TROPI, PRCAL, MYCM #### [facility] [employer] [address] [place] [address] 72754 Monocytes #/vol (Bld)0.66 10*3/uLNormal0.1-0.8Prom[facility] HospitalComment on above:Performed By: #### LACDS, TROPI, PRCAL, MYCM #### [facility] [address] [place] [address] 99121 Monocytes/100 WBC (Bld)8 %High1-7[facility] Comment on above:Performed By: #### LACDS, TROPI, PRCAL, MYCM #### [employer] [address] [place] [address] 42607 Morphology Interp Rehan (Bld)ANISOCYTOSIS PRESENTNormalPromedica Flower HospitalComment on above:Performed By: #### LACDS, TROPI, PRCAL, MYCM #### [facility] [address] [place] [address] 41645 Neutrophil (Seg)55 %Xyxfbd01-79NeznhPromedica Flower Hospital Comment on above:Performed By: #### LACDS, TROPI, PRCAL, MYCM #### [employer] [address] [place] [address] 70941 Erythrocyte distribution width Ratio (RBC)14.6 %High11.8-14.4Prom[facility] Flower HospitalComment on above:Performed By: #### LACDS, TROPI, PRCAL, MYCM #### [facility] [address] [place] [address] 82139 Hematocrit Volume Fraction (Bld)33.5 %Low36.3-47.1MVentura County Medical CenterComment on above:Performed By: #### LALO, TROPI, PRCAL, MYCM #### [facility] [employer] [address] [place] [address] 32991 Hemoglobin mass conc (Bld)10.2 g/dLLow11.9-15.1MVentura County Medical CenterComment on above:Performed By: #### LACREY, TROPI, PRCAL, MYCM #### [facility] [employer] [address] [place] [address] 53709 MCH Entitic mass (RBC)27.9 zvWsncbk46.2-33.5Prom[facility] F[facility] HospitalComment on above:Performed By: #### LALO, TROPI, PRCAL, MYCM #### [facility] [employer] [address] [place] [address] 19172 MCHC mass conc (RBC)30.4 g/cOMhuwwh45.4-34.8Prom[facility] F[facility] HospitalComment on above:Performed By: #### LALO, TROPI, PRCAL, MYCM #### [facility] [employer] [address] [place] [address] 17491 MCV Entitic volume (RBC)91.5 gYVqcrry13.6-102.9Prom[facility] F[facility] HospitalComment on above:Performed By: #### LACREY, TROPI, PRCAL, MYCM #### [facility] [address] [place] [address] 12860 NRBC Automated0.0 per 100 WBCNormal0.0Promed[facility] Flower HospitalComment on above:Performed By: #### LACREY, TROPI, PRCAL, MYCM #### [facility] [address] [place] [address] 44582 Platelet mean volume Entitic volume (Bld)11.0 fLNormal8.1-13.5Prom[facility] F[facility] HospitalComment on above:Performed By: #### LACDS, TROPI, PRCAL, MYCM #### [employer] [address] [place] [address] 01907 Platelets #/vol (Bld)211 10*3/kNOgijbj956-928LapopPromedica Flower HospitalComment on above:Performed By: #### LACDS, TROPI, PRCAL, MYCM #### [facility] [address] [place] [address] 43368 RBC #/vol (Bld)3.66 10*6/uLLow3.95-5.11Prom[facility] HospitalComment on above:Performed By: #### LACDS, TROPI, PRCAL, MYCM #### [employer] [address] [place] [address] 76893 WBC #/vol (Bld)8.3 10*3/uLNormal3.5-11.3MVentura County Medical CenterComment on above:Performed By: #### LACDS, TROPI, PRCAL, MYCM #### [employer] [address] [place] [address] 58729 Auto Diff PerformedNOT REPORTEDNoalPromedica Flower HospitalComment on above:Performed By: #### LACDS, TROPI, PRCAL, MYCM #### [employer] [address] [place] [address] 32962 Platelets #/vol (Bld)NOT REPORTEDNoCleveland Clinic Akron GeneralComment on above:Performed By: #### LACDS, TROPI, PRCAL, MYCM #### [employer] [address] [place] [address] 69050 RBC morphology finding Nom (Bld)NOT REPORTEDNormalPromedica Flower HospitalComment on above:Performed By: #### LACDS, TROPI, PRCAL, MYCM #### [employer] [address] [place] [address] 80575 WBC MorphologyNOT REPORTEDNormalPromedica Flower Hospital Comment on above:Performed By: #### GRACE MAY PRCAL, MYCM #### [facility] [address] [place] [address] 66454 Comp Metabolic Pr/rfx MGon 08-20-2018(cont.)NormalPromedica Flower HospitalComment on above:Result Comment: Average GFR for 30-39 years old: 107 mL/min/1.73sq m Chronic Kidney Disease: <60 mL/min/1.73sq m Kidney failure: <15 mL/min/1.73sq m eGFR calculated using average adult body mass. Additional eGFR calculator available at: http://www.[employer]/multiple_crcl_2012.htmPerformed By: #### GRACE MAY PRCAL, MYCM #### [facility] [address] [place] [address] 84371 Albumin mass conc3.1 g/dLLow3.5-5.2MVentura County Medical Center Comment on above:Performed By: #### GRACE MAY, PRCAL, MYCM #### [employer] [address] [place] [address] 72123 Albumin/Globulin mass ratio0.9 {ratio}Low1.0-2.5Prom[facility] Flower HospitalComment on above:Performed By: #### DAMIEN MAYI, PRCAL, MYCM #### [employer] [address] [place] [address] 09159 Alkaline Phos83 U/QGyjmcf43-265VzyinPromedica Flower Hospital Comment on above:Performed By: #### GRACE MAY, PRCAL, MYCM #### [employer] [address] [place] [address] 98221 ALT enzyme act/vol17 U/LNormal5-33[facility] Comment on above:Performed By: #### GRACE MAY, PRCAL, MYCM #### [facility] [employer] [facility] [place] [address] Anion gap molar conc11 mmol/LNormal9-17Prom[facility] Flower HospitalComment on above:Performed By: #### LACDS, TROPI, PRCAL, MYCM #### [facility] [employer] [address] [place] [address] 20777 AST enzyme act/vol18 U/LNormal<32[facility] Comment on above:Performed By: #### LACDS, TROPI, PRCAL, MYCM #### [facility] [employer] [address] [place] [address] 58536 Bilirubin Ql (U)0.29 mg/dLLow0.3-1.2MVentura County Medical CenterComment on above:Performed By: #### LACDS, TROPI, PRCAL, MYCM #### [facility] [employer] [address] [place] [address] 72242 Calcium mass conc9.0 mg/dLNormal8.6-10.4[facility] Flower HospitalComment on above:Performed By: #### LACDS, TROPI, PRCAL, MYCM #### [facility] [employer] [address] [place] [address] 80921 Chloride molar xyzu625 mmol/VPrtejs12-925RngfsPromedica Flower HospitalComment on above:Performed By: #### LACDS, TROPI, PRCAL, MYCM #### [facility] [employer] [address] [place] [address] 68457 CO2 molar conc27 mmol/DJikmxx67-26DktzcPromedica Flower Hospital Comment on above:Performed By: #### LACDS, TROPI, PRCAL, MYCM #### [facility] [address] [place] [address] 29516 Creatinine mass conc0.97 mg/dLHigh0.50-0.90Promedica Flower HospitalComment on above:Performed By: #### LACDS, TROPI, PRCAL, MYCM #### [facility] [address] [place] [address] 94544 GFR, Amer>60Normal>60[facility] HospitalComment on above:Performed By: #### LACDS, TROPI, PRCAL, MYCM #### [facility] [address] [place] [address] 32245 GFR,non Amer>60Normal>60[facility] Comment on above:Performed By: #### LACDS, TROPI, PRCAL, MYCM #### [facility] [employer] [address] [place] [address] 61341 Glucose mass qxei710 mg/vUGkqa11-40Vrvsi [facility] Comment on above:Performed By: #### LACDS, TROPI, PRCAL, MYCM #### [facility] [employer] [address] [place] [address] 33812 Potassium molar conc4.4 mmol/LNormal3.7-5.3[facility] HospitalComment on above:Performed By: #### LACDS, TROPI, PRCAL, MYCM #### [facility] [employer] [address] [place] [address] 08684 Protein mass conc6.6 g/dLNormal6.4-8.3[facility] HospitalComment on above:Performed By: #### LACDS, TROPI, PRCAL, MYCM #### [facility] [employer] [address] [place] [address] 38217 Sodium molar rzvi014 mmol/UQpdnoh086-287Gvevq [facility] HospitalComment on above:Performed By: #### LACDS, TROPI, PRCAL, MYCM #### [facility] [employer] [address] [place] [address] 60765 Urea nitrogen mass conc15 mg/dLNormal6-20[facility] HospitalComment on above:Performed By: #### LACDS, TROPI, PRCAL, MYCM #### [facility] [address] [place] [address] 33620 BUN/CRE RatioNOT REPORTEDNormal9-20[facility] Comment on above:Performed By: #### LACDS, TROPI, PRCAL, MYCM #### [facility] [employer] [address] [place] [address] 79762 Staging:NOT REPORTEDNoCleveland Clinic Akron GeneralComment on above:Performed By: #### LACDS, TROPI, PRCAL, MYCM #### [facility] [address] [place] [address] 53175 Magnesiumon 93-88-5655Rffxtwahu mass conc2.2 mg/dLNormal1.6-2.6 [facility] Flower HospitalComment on above:Performed By: #### LACDS, TROPI, PRCAL, MYCM #### [facility] [address] [place] [address] 21688 Sedimentation Rateon 80-03-7831Trurftdtlahfk Odft597 mmHigh0-20 [facility] Flower HospitalComment on above:Performed By: #### LACDS, TROPI, PRCAL, MYCM #### [facility] [address] [place] [address] 56854 XR FOOT LEFT (MIN 3 VIEWS)on 77-69-6016TE FOOT LEFT (MIN 3 VIEWS) EXAMINATION: 3 [...] Signed by: Andrey Angelo MD 08/20/18 Final resultNoCleveland Clinic Akron GeneralCBC with Diffon [id number]. Basophil0.00 k/uLNormal0.0-0.2MVentura County Medical CenterComment on above: Performed By: #### LALO, TROPI, PRCAL, MYCM #### [facility] [address] [place] [address] 69545 Abs.Imm.Granulocyte0.42 k/uLHigh0.00-0.30Prom[facility] Flower HospitalComment on above:Performed By: #### LALO, TROPI, PRCAL, MYCM #### [facility] [address] [place] [address] 10833 Abs.Neutrophil (Seg)2.70 k/uLNormal1.8-7.7Prom[facility] Flower HospitalComment on above:Performed By: #### LALO, TROPI, PRCAL, MYCM #### [facility] [address] [place] [address] 81206 Basophils/100 WBC (Bld)0 %Normal0-2MVentura County Medical Center Comment on above:Performed By: #### LALO, TROPI, PRCAL, MYCM #### [facility] [address] [place] [address] 33172 Eosinophils #/vol (Bld)0.30 10*3/uLNormal0.0-0.4[facility] Flower HospitalComment on above:Performed By: #### LACDS, TROPI, PRCAL, MYCM #### [employer] [address] [place] [address] 61585 Eosinophils/100 WBC (Bld)5 %High1-4[facility] Comment on above:Performed By: #### LACDS, TROPI, PRCAL, MYCM #### [facility] [address] [place] [address] 75330 Immature granulocytes #/vol (Bld)7 %Vpnn4ArukoPromedica Flower HospitalComment on above:Performed By: #### LACDS, TROPI, PRCAL, MYCM #### [facility] [address] [place] [address] 26294 Lymphocytes #/vol (Bld)2.22 10*3/uLNormal1.0-4.8[facility] Flower HospitalComment on above:Performed By: #### LACDS, TROPI, PRCAL, MYCM #### [facility] [employer] [address] [place] [address] 90060 Lymphocytes/100 WBC (Bld)37 %Vvzxre79-48EvrspPromedica Flower HospitalComment on above:Performed By: #### LACDS, TROPI, PRCAL, MYCM #### [facility] [address] [place] [address] 60610 Monocytes #/vol (Bld)0.36 10*3/uLNormal0.1-0.8[facility]lower HospitalComment on above:Performed By: #### LACDS, TROPI, PRCAL, MYCM #### [facility] [address] [place] [address] 56302 Monocytes/100 WBC (Bld)6 %Normal1-7[facility] Comment on above:Performed By: #### LACDS, TROPI, PRCAL, MYCM #### [facility] [address] [place] [address] 73278 Morphology Interp Rehan (Bld)ANISOCYTOSIS PRESENTNormalPromedica Flower HospitalComment on above:Performed By: #### LACDS, TROPI, PRCAL, MYCM #### [employer] [address] [place] [address] 15472 Neutrophil (Seg)45 %Scegar12-12FczejPromedica Flower Hospital Comment on above:Performed By: #### LACDS, TROPI, PRCAL, MYCM #### [employer] [address] [place] [address] 44606 Erythrocyte distribution width Ratio (RBC)14.6 %High11.8-14.4Prom[facility] Flower HospitalComment on above:Performed By: #### LACDS, TROPI, PRCAL, MYCM #### [facility] [employer] [address] [place] [address] 18715 Hematocrit Volume Fraction (Bld)34.4 %Low36.3-47.1MVentura County Medical CenterComment on above:Performed By: #### LACDS, TROPI, PRCAL, MYCM #### [facility] [employer] [address] [place] [address] 66092 Hemoglobin mass conc (Bld)10.4 g/dLLow11.9-15.1MVentura County Medical CenterComment on above:Performed By: #### LACDS, TROPI, PRCAL, MYCM #### [facility] [employer] [address] [place] [address] 08108 MCH Entitic mass (RBC)28.0 pbMnjpfi40.2-33.5Prom[facility] Flower HospitalComment on above:Performed By: #### LACDS, TROPI, PRCAL, MYCM #### [facility] [employer] [address] [place] [address] 81378 MCHC mass conc (RBC)30.2 g/tBZavvoi99.4-34.8Prom[facility] Flower HospitalComment on above:Performed By: #### LACDS, TROPI, PRCAL, MYCM #### [facility] [employer] [address] [place] [address] 73902 MCV Entitic volume (RBC)92.7 hPNmgqfu80.6-102.9Prom[facility] Flower HospitalComment on above:Performed By: #### LACDS, TROPI, PRCAL, MYCM #### [facility] [employer] [address] [place] [address] 06074 NRBC Automated0.3 per 100 WBCHigh0.0Prom[facility] Flower HospitalComment on above:Performed By: #### LACDS, TROPI, PRCAL, MYCM #### [employer] [address] [place] [address] 70106 Platelet mean volume Entitic volume (Bld)10.5 fLNormal8.1-13.5[facility] Flower HospitalComment on above:Performed By: #### LACDS, TROPI, PRCAL, MYCM #### [employer] [address] [place] [address] 35506 Platelets #/vol (Bld)168 10*3/gYKiedcr721-863BjrfgPromedica Flower HospitalComment on above:Performed By: #### LACDS, TROPI, PRCAL, MYCM #### [employer] [address] [place] [address] 01239 RBC #/vol (Bld)3.71 10*6/uLLow3.95-5.11Prom[facility] F[facility] HospitalComment on above:Performed By: #### LACDS, TROPI, PRCAL, MYCM #### [employer] [address] [place] [address] 77949 WBC #/vol (Bld)6.0 10*3/uLNormal3.5-11.3MercWhite Memorial Medical CenterComment on above:Performed By: #### LACDS, TROPI, PRCAL, MYCM #### [employer] [address] [place] [address] 50255 Auto Diff PerformedNOT REPORTEDPremier HealthComment on above:Performed By: #### LACDS, TROPI, PRCAL, MYCM #### [employer] [address] [place] [address] 00151 Platelets #/vol (Bld)NOT REPORTEDPremier HealthComment on above:Performed By: #### LACDS, TROPI, PRCAL, MYCM #### [employer] [facility] [place] [address] RBC morphology finding Nom (Bld)NOT REPORTEDNoCleveland Clinic Akron GeneralComment on above:Performed By: #### LACDS, TROPI, PRCAL, MYCM #### [employer] [address] [place] [address] 26688 WBC MorphologyNOT REPORTEDNormalPromedica Flower Hospital Comment on above:Performed By: #### LACDS, TROPI, PRCAL, MYCM #### [employer] [address] [place] [address] 40946 Comp Metabolic Pr/rfx MGon 08-19-2018(cont.)NormalPromedica Flower HospitalComment on above:Result Comment: Average GFR for 30-39 years old: 107 mL/min/1.73sq m Chronic Kidney Disease: <60 mL/min/1.73sq m Kidney failure: <15 mL/min/1.73sq m eGFR calculated using average adult body mass. Additional eGFR calculator available at: http://www.[employer]/multiple_crcl_2012.htmPerformed By: #### LACDS, TROPI, PRCAL, MYCM #### [employer] [facility] [place] [address] Albumin mass conc2.7 g/dLLow3.5-5.2[facility] Comment on above:Performed By: #### LACDS, TROPI, PRCAL, MYCM #### [employer] [facility] [place] [address] Albumin/Globulin mass ratio0.8 {ratio}Low1.0-2.5Prom[facility] Flower HospitalComment on above:Performed By: #### LACDS, TROPI, PRCAL, MYCM #### [employer] [address] [place] [address] 00100 Alkaline Phos78 U/RFpvkev83-804GplblPromedica Flower Hospital Comment on above:Performed By: #### LACDS, TROPI, PRCAL, MYCM #### [facility] [employer] [address] [place] [address] 34107 ALT enzyme act/vol16 U/LNormal5-33[facility] Comment on above:Performed By: #### LACDS, TROPI, PRCAL, MYCM #### [facility] [address] [place] [address] 73745 Anion gap molar conc10 mmol/LNormal9-17[facility] HospitalComment on above:Performed By: #### LACDS, TROPI, PRCAL, MYCM #### [facility] [employer] [address] [place] [address] 33540 AST enzyme act/vol16 U/LNormal<32[facility] Comment on above:Performed By: #### LACDS, TROPI, PRCAL, MYCM #### [facility] [address] [place] [address] 82193 Bilirubin Ql (U)0.21 mg/dLLow0.3-1.2MVentura County Medical CenterComment on above:Performed By: #### LACDS, TROPI, PRCAL, MYCM #### [facility] [address] [place] [address] 01128 Calcium mass conc8.5 mg/dLLow8.6-10.4[facility] HospitalComment on above:Performed By: #### LACDS, TROPI, PRCAL, MYCM #### [employer] [address] [place] [address] 28014 Chloride molar lrej522 mmol/JVjulgb14-910WrajzPromedica Flower HospitalComment on above:Performed By: #### LACDS, TROPI, PRCAL, MYCM #### [employer] [address] [place] [address] 52118 CO2 molar conc24 mmol/MZbtncd31-62YluxqPromedica Flower Hospital Comment on above:Performed By: #### LACDS, TROPI, PRCAL, MYCM #### [facility] [employer] [address] [place] [address] 82030 Creatinine mass conc0.88 mg/dLNormal0.50-0.90Prom[facility] F[facility] HospitalComment on above:Performed By: #### LACDS, TROPI, PRCAL, MYCM #### [facility] [address] [place] [address] 78279 GFR, Amer>60Normal>60[facility] HospitalComment on above:Performed By: #### LACDS, TROPI, PRCAL, MYCM #### [facility] [employer] [address] [place] [address] 79172 GFR,non Amer>60Normal>60[facility] Comment on above:Performed By: #### LACDS, TROPI, PRCAL, MYCM #### [facility] [employer] [address] [place] [address] 08170 Glucose mass esen588 mg/cDIqqv08-53GgpatVentura County Medical Center Comment on above:Performed By: #### LACDS, TROPI, PRCAL, MYCM #### [facility] [employer] [address] [place] [address] 04879 Potassium molar conc4.0 mmol/LNormal3.7-5.3MVentura County Medical CenterComment on above:Performed By: #### LACDS, TROPI, PRCAL, MYCM #### [facility] [address] [place] [address] 09700 Protein mass conc6.3 g/dLLow6.4-8.3Mmarietta [facility]opathic clinicy [facility] Comment on above:Performed By: #### LACDS, TROPI, PRCAL, MYCM #### [facility] [employer] [address] [place] [address] 61969 Sodium molar oqgz011 mmol/QMqpofm138-592VonmgPromedica Flower HospitalComment on above:Performed By: #### LALO, TROPI, PRCAL, MYCM #### [employer] [address] [place] [address] Urea nitrogen mass conc16 mg/dLNormal6-20[facility] HospitalComment on above:Performed By: #### LACREY, TROPI, PRCAL, MYCM #### [employer] [facility] [place] [address] BUN/CRE RatioNOT REPORTEDNormal9-20[facility] Comment on above:Performed By: #### LALO, TROPI, PRCAL, MYCM #### [employer] [address] [place] [address] 91072 Staging:NOT REPORTEDNormUniversity Hospitals Conneaut Medical CenterComment on above:Performed By: #### LACREY, TROPI, PRCAL, MYCM #### [employer] [address] [place] [address] 37740 Cult, Bloodon [id number], BloodSpecimen Description .BLOOD Special Requests L HAND [...] NOT REPORTED Trimethoprim/Sulfa <=10 SUSCEPTIBLE Vancomycin 1 SUSCEPTIBLENoCleveland Clinic Akron GeneralComment on above: Performed By: #### LACDS, TROPI, PRCAL, MYCM #### [employer] [address] [place] [address] MRI CERVICAL SPINE W WO CONTRASTon [id number] CERVICAL SPINE W WO CONTRASTEXAMINATION: MRI OF [...] Signed by: Bo Rodrigues MD 08/19/18 Final resultNormalMerSutter Medical Center of Santa RosaMRI LUMBAR SPINE W WO CONTRAST on 23-19-6031RAV LUMBAR SPINE W WO CONTRASTEXAMINATION: MRI OF [...] by: Bo Rodrigues MD 08/19/18 Final resultNormalMercy [facility] THORACIC SPINE W WO CONTRASTon [id number] THORACIC SPINE W WO CONTRASTEXAMINATION: MRI OF [...] by: Bo Rodrigues MD 08/19/18 Final resultNormalMercy Sierra Kings HospitalMagnesiumon 08-19-2018 Magnesium mass conc2.3 mg/dLNormal1.6-2.6[facility] HospitalComment on above:Performed By: #### GRACE MAY PRCAL, MARYCRUZM #### [employer] [address] [address] Procalcitoninon 56-84-3660Uplhhpi mass conc0.57 ng/mLHigh<0.09MerSutter Medical Center of Santa RosaComment on above:Result Comment: Suspected Sepsis: 0.09-0.49 ng/mL [...] entered into the Change in Procalcitonin Calculator (www.actayh-jtd-vigaxgxzbb.com) to determine the patient's Mortality Risk PrognosisPerformed By: #### GRACE MAY PRCAL, MARYCRUZM #### [employer] [address] [place] [place] [address] CBC with Diffon [id number]. Basophil<0.38Soafhz2.00-0.20MerSutter Medical Center of Santa RosaComment on above:Performed By: #### GRACE MAY PRCAL, JAZMYN #### [employer] [address] [place] [place] [address] Abs.Imm.Granulocyte0.28 k/uLNormal0.00-0.30MerSutter Medical Center of Santa RosaComment on above:Performed By: #### DAMIEN MAYI, PRCAL, MYCM #### [facility] [address] [place] [address] 37795 Abs.Neutrophil (Seg)3.23 k/uLNormal1.50-8.10Prom[facility] HospitalComment on above:Performed By: #### LACDS, TROPI, PRCAL, MYCM #### [facility] [employer] [address] [place] [address] 47338 Basophils/100 WBC (Bld)0 %Normal0-2[facility] Comment on above:Performed By: #### LACDS, TROPI, PRCAL, MYCM #### [facility] [employer] [address] [place] [address] 48336 Eosinophils #/vol (Bld)0.15 10*3/uLNormal0.00-0.44Prom[facility] HospitalComment on above:Performed By: #### LACDS, TROPI, PRCAL, MYCM #### [facility] [employer] [address] [place] [address] 90945 Eosinophils/100 WBC (Bld)3 %Normal1-4Prom[facility] F[facility] HospitalComment on above:Performed By: #### LACDS, TROPI, PRCAL, MYCM #### [facility] [address] [place] [address] 92870 Erythrocyte distribution width Ratio (RBC)14.7 %High11.8-14.4Prom[facility] F[facility] HospitalComment on above:Performed By: #### LACDS, TROPI, PRCAL, MYCM #### [facility] [employer] [address] [place] [address] 87840 Hematocrit Volume Fraction (Bld)32.7 %Low36.3-47.1MercWhite Memorial Medical CenterComment on above:Performed By: #### LACDS, TROPI, PRCAL, MYCM #### [facility] [address] [place] [address] 74169 Hemoglobin mass conc (Bld)10.1 g/dLLow11.9-15.1Mmarietta osteopathic clinicy [facility] HospitalComment on above:Performed By: #### LACREY, TROPI, PRCAL, MYCM #### [facility] [employer] [address] [place] [address] 96473 Immature granulocytes #/vol (Bld)5 %Jpqy1AxjvrPromedica Flower HospitalComment on above:Performed By: #### LACREY, TROPI, PRCAL, MYCM #### [facility] [employer] [address] [place] [address] 96411 Lymphocytes #/vol (Bld)1.58 10*3/uLNormal1.10-3.70Prom[facility] F[facility] HospitalComment on above:Performed By: #### LACREY, TROPI, PRCAL, MYCM #### [facility] [employer] [address] [place] [address] 35603 Lymphocytes/100 WBC (Bld)28 %Jpnnlf82-41RrtukPromedica Flower HospitalComment on above:Performed By: #### LALO, TROPI, PRCAL, MYCM #### [facility] [employer] [address] [place] [address] 22221 MCH Entitic mass (RBC)28.2 ntEajfbk45.2-33.5Prom[facility] F[facility] HospitalComment on above:Performed By: #### LACREY, TROPI, PRCAL, MYCM #### [facility] [employer] [address] [place] [address] 43802 MCHC mass conc (RBC)30.9 g/kBGrjrns81.4-34.8Prom[facility] F[facility] HospitalComment on above:Performed By: #### LACDS, TROPI, PRCAL, MYCM #### [facility] [employer] [address] [place] [address] 32877 MCV Entitic volume (RBC)91.3 cJFmwfnb15.6-102.9Prom[facility] F[facility] HospitalComment on above:Performed By: #### LACDS, TROPI, PRCAL, MYCM #### [facility] [address] [place] [address] 56711 Monocytes #/vol (Bld)0.47 10*3/uLNormal0.10-1.20[facility] HospitalComment on above:Performed By: #### LACDS, TROPI, PRCAL, MYCM #### [facility] [employer] [address] [place] [address] 29232 Monocytes/100 WBC (Bld)8 %Normal3-12Prom[facility] Flower HospitalComment on above:Performed By: #### LACDS, TROPI, PRCAL, MYCM #### [facility] [address] [place] [address] 53690 Neutrophil (Seg)56 %Aybwyz87-82GafvrPromedica Flower Hospital Comment on above:Performed By: #### LACDS, TROPI, PRCAL, MYCM #### [facility] [employer] [address] [place] [address] 92811 NRBC Automated0.0 per 100 WBCNormal0.0Prom[facility] Flower HospitalComment on above:Performed By: #### LACDS, TROPI, PRCAL, MYCM #### [address] [address] Platelet mean volume Entitic volume (Bld)11.4 fLNormal8.1-13.5Prom[facility]ica Flower HospitalComment on above:Performed By: #### LACDS, TROPI, PRCAL, MYCM #### [facility] [employer] [address] [place] [address] 39475 Platelets #/vol (Bld)153 10*3/vTOlxnwf390-082FjhejPromedica Flower HospitalComment on above:Performed By: #### LACDS, TROPI, PRCAL, MYCM #### [employer] [address] [place] [address] 47773 RBC #/vol (Bld)3.58 10*6/uLLow3.95-5.11Prom[facility] HospitalComment on above:Performed By: #### LACDS, TROPI, PRCAL, MYCM #### [employer] [address] [place] [address] 92014 RBC morphology finding Nom (Bld)ANISOCYTOSIS PRESENTNormalPromedica Flower HospitalComment on above:Performed By: #### LACDS, TROPI, PRCAL, MYCM #### [facility] [employer] [address] [place] [address] 38243 WBC #/vol (Bld)5.7 10*3/uLNormal3.5-11.3[facility] HospitalComment on above:Performed By: #### LACDS, TROPI, PRCAL, MYCM #### [employer] [address] [place] [address] 65947 Auto Diff PerformedNOT REPORTEDNormUniversity Hospitals Conneaut Medical CenterComment on above:Performed By: #### LACDS, TROPI, PRCAL, MYCM #### [employer] [address] [place] [address] 47408 Platelets #/vol (Bld)NOT REPORTEDNormUniversity Hospitals Conneaut Medical CenterComment on above:Performed By: #### LACDS, TROPI, PRCAL, MYCM #### [employer] [address] [place] [address] 83850 WBC MorphologyNOT REPORTEDNoCleveland Clinic [facility] General Comment on above:Performed By: #### LACDS, TROPI, PRCAL, MYCM #### [employer] [address] [place] [address] 52357 Comp Metabolic Pr/rfx MGon 08-18-2018(cont.)NormalPromedica Flower HospitalComment on above:Result Comment: Average GFR for 30-39 years old: 107 mL/min/1.73sq m Chronic Kidney Disease: <60 mL/min/1.73sq m Kidney failure: <15 mL/min/1.73sq m eGFR calculated using average adult body mass. Additional eGFR calculator available at: http://www.[employer]/multiple_crcl_2012.htmPerformed By: #### LACDS, TROPI, PRCAL, MYCM #### [facility] [address] [place] [address] 68093 Albumin mass conc2.7 g/dLLow3.5-5.2Mmari[facility] clinicy [facility] Comment on above:Performed By: #### LACDS, TROPI, PRCAL, MYCM #### [facility] [address] [place] [address] 12269 Albumin/Globulin mass ratio0.8 {ratio}Low1.0-2.5Prom[facility]ica Flower HospitalComment on above:Performed By: #### LACDS, TROPI, PRCAL, MYCM #### [employer] [address] [place] [address] 89980 Alkaline Phos82 U/BAxwtad99-638BfrtqPromedica Flower Hospital Comment on above:Performed By: #### LACDS, TROPI, PRCAL, MYCM #### [facility] [address] [place] [address] 72308 ALT enzyme act/vol19 U/LNormal5-33[facility] Comment on above:Performed By: #### LACDS, TROPI, PRCAL, MYCM #### [employer] [address] [place] [address] 15440 Anion gap molar conc8 mmol/LLow9-17[facility] Comment on above:Performed By: #### LACDS, TROPI, PRCAL, MYCM #### [employer] [address] [place] [address] 77112 AST enzyme act/vol17 U/LNormal<32[facility] Comment on above:Performed By: #### LACDS, TROPI, PRCAL, MYCM #### [facility] [address] [place] [address] 27134 Bilirubin Ql (U)0.24 mg/dLLow0.3-1.2MVentura County Medical CenterComment on above:Performed By: #### LACDS, TROPI, PRCAL, MYCM #### [facility] [address] [place] [address] 64433 Calcium mass conc8.2 mg/dLLow8.6-10.4Prom[facility] F[facility] HospitalComment on above:Performed By: #### LACDS, TROPI, PRCAL, MYCM #### [facility] [address] [place] [address] 99627 Chloride molar brsv713 mmol/HNjuzuj25-503ZflqePromedica Flower HospitalComment on above:Performed By: #### LACDS, TROPI, PRCAL, MYCM #### [facility] [address] [place] [address] 49565 CO2 molar conc25 mmol/RLzidbk76-26CmnqpPromedica Flower Hospital Comment on above:Performed By: #### LACDS, TROPI, PRCAL, MYCM #### [facility] [address] [place] [address] 27068 Creatinine mass conc0.94 mg/dLHigh0.50-0.90Prom[facility]ica Flower HospitalComment on above:Performed By: #### LACDS, TROPI, PRCAL, MYCM #### [facility] [address] [place] [address] 86650 GFR, Amer>60Normal>60MerSutter Medical Center of Santa RosaComment on above:Performed By: #### LACDS, TROPI, PRCAL, MYCM #### [facility] [address] [place] [address] 63213 GFR,non Amer>60Normal>60[facility] Comment on above:Performed By: #### LACDS, TROPI, PRCAL, MYCM #### [facility] [address] [place] [address] 37169 Glucose mass awps681 mg/yHLsof70-22YfsdgVentura County Medical Center Comment on above:Performed By: #### LACDS, TROPI, PRCAL, MYCM #### [facility] [employer] [address] [place] [address] 94343 Potassium molar conc4.1 mmol/LNormal3.7-5.3MVentura County Medical CenterComment on above:Performed By: #### LACDS, TROPI, PRCAL, MYCM #### [facility] [address] [place] [address] 78499 Protein mass conc6.2 g/dLLow6.4-8.3MVentura County [facility] Center Comment on above:Performed By: #### LACDS, TROPI, PRCAL, MYCM #### [facility] [employer] [address] [place] [address] 07479 Sodium molar xofz473 mmol/SYtqquh780-153IueszPromedica Flower HospitalComment on above:Performed By: #### LACDS, TROPI, PRCAL, MYCM #### [facility] [address] [place] [address] 55734 Urea nitrogen mass conc14 mg/dLNormal6-20Prom[facility] Flower HospitalComment on above:Performed By: #### LACDS, TROPI, PRCAL, MYCM #### [facility] [employer] [address] [place] [address] 87953 BUN/CRE RatioNOT REPORTEDNormal9-20[facility] Comment on above:Performed By: #### LACDS, TROPI, PRCAL, MYCM #### [facility] [address] [place] [address] 06893 Staging:NOT REPORTEDNoCleveland Clinic Akron GeneralComment on above:Performed By: #### LALO, TROPI, PRCAL, MYCM #### [employer] [address] [place] [address] 90943 Magnesiumon 09-74-8936Ukhvsrlcv mass conc2.3 mg/dLNormal1.6-2.6 [facility] Flower HospitalComment on above:Performed By: #### LACREY, TROPI, PRCAL, MYCM #### [employer] [address] [place] [address] 96137 Vancomycin Troughon 51-18-0864Wclyigbikt Emtkap18.7 ug/mLNormal 10.0-20.0Prom[facility] Flower HospitalComment on above:Result Comment: Higher trough serum vancomycin concentrations of 15-20 ug/mL are recommended for complicated infections such as bacteremia, endocarditis, osteomyelitis, meningitis, and hospital acquired pneumonia.Performed By: #### LALO, TROPI, PRCAL, MYCM #### [employer] [address] [place] [address] 58790 Date last dose,NOT REPORTEDNoCleveland Clinic [facility] General Comment on above:Performed By: #### LALO, TROPI, PRCAL, MYCM #### [employer] [address] [place] [address] 13930 Dose amount,NOT REPORTEDNoCleveland Clinic [facility] General Comment on above:Performed By: #### LACREY, TROPI, PRCAL, MYCM #### [employer] [address] [place] [address] 09075 Time last dose,NOT REPORTEDNoCleveland Clinic [facility] Comment on above:Performed By: #### LACREY, TROPI, PRCAL, MYCM #### [employer] [address] [place] [address] 74858 [phone]-Kuxsmkzi Proteinon 56-08-2082XUV mass lfyw911.1 mg/LHigh0.0-5.0 [facility] Flower HospitalComment on above:Performed By: #### LALO, DAMIENI, PRCAL, MYCM #### [place] [address] CBC with Diffon 75-57-8607Ttw. Basophil0.00 k/uLNormal0.0-0.2MVentura County Medical CenterComment on above:Performed By: #### LALO, TROPI, PRCAL, MYCM #### [facility] [employer] [address] [place] [address] 94508 Abs.Imm.Granulocyte0.13 k/uLNormal0.00-0.30Prom[facility] Flower HospitalComment on above:Performed By: #### LALO, TROPI, PRCAL, MYCM #### [place] [address] Abs.Neutrophil (Seg)4.35 k/uLNormal1.8-7.7Promedica Flower HospitalComment on above:Performed By: #### LALO, TROPI, PRCAL, MYCM #### [address] [address] Basophils/100 WBC (Bld)0 %Normal0-2MVentura County Medical Center Comment on above:Performed By: #### LALO, TROPI, PRCAL, MYCM #### [address] [address] Eosinophils #/vol (Bld)0.06 10*3/uLNormal0.0-0.4Prom[facility]ica Flower HospitalComment on above:Performed By: #### LALO, TROPI, PRCAL, MYCM #### [facility] [employer] [address] [place] [address] 25487 Eosinophils/100 WBC (Bld)1 %Normal1-4Prom[facility] Flower HospitalComment on above:Performed By: #### LACDS, TROPI, PRCAL, MYCM #### [facility] [employer] [address] [place] [address] 41882 Immature granulocytes #/vol (Bld)2 %Amvs8DikgsPromedica Flower HospitalComment on above:Performed By: #### LACDS, TROPI, PRCAL, MYCM #### [facility] [employer] [address] [place] [address] 46887 Lymphocytes #/vol (Bld)1.32 10*3/uLNormal1.0-4.8Prom[facility] Flower HospitalComment on above:Performed By: #### LACDS, TROPI, PRCAL, MYCM #### [facility] [employer] [address] [place] [address] 73092 Lymphocytes/100 WBC (Bld)21 %Fzz32-76BthafPromedica Flower HospitalComment on above:Performed By: #### LACDS, TROPI, PRCAL, MYCM #### [facility] [employer] [address] [place] [address] 94396 Monocytes #/vol (Bld)0.44 10*3/uLNormal0.1-0.8Prom[facility] Flower HospitalComment on above:Performed By: #### LACDS, TROPI, PRCAL, MYCM #### [facility] [employer] [address] [place] [address] 87104 Monocytes/100 WBC (Bld)7 %Normal1-7[facility] Comment on above:Performed By: #### LACDS, TROPI, PRCAL, MYCM #### [facility] [employer] [address] [place] [address] 77886 Morphology Interp Rehan (Bld)ANISOCYTOSIS PRESENTNormalPromedica Flower HospitalComment on above:Result Comment: INCREASED BANDS PRESENT 1+ TEARDROPSPerformed By: #### LACDS, TROPI, PRCAL, MYCM #### [facility] [employer] [address] [place] [address] 75789 Neutrophil (Seg)69 %Bnuw82-68MfhyzPromedica Flower Hospital Comment on above:Performed By: #### LACDS, TROPI, PRCAL, MYCM #### [facility] [employer] [address] [place] [address] 81487 Erythrocyte distribution width Ratio (RBC)14.8 %High11.8-14.4Promedica Flower HospitalComment on above:Performed By: #### LACDS, TROPI, PRCAL, MYCM #### [facility] [employer] [address] [place] [address] 63129 Hematocrit Volume Fraction (Bld)33.3 %Low36.3-47.1MVentura County Medical CenterComment on above:Performed By: #### LACDS, TROPI, PRCAL, MYCM #### [facility] [employer] [address] [place] [address] 23997 Hemoglobin mass conc (Bld)10.2 g/dLLow11.9-15.1MVentura County Medical CenterComment on above:Performed By: #### LACDS, TROPI, PRCAL, MYCM #### [facility] [employer] [address] [place] [address] 31609 MCH Entitic mass (RBC)28.3 deQxhjsn10.2-33.5Prom[facility] Flower HospitalComment on above:Performed By: #### LACDS, TROPI, PRCAL, MYCM #### [facility] [employer] [address] [place] [address] 34327 MCHC mass conc (RBC)30.6 g/vJQnnhxi77.4-34.8Prom[facility] Flower HospitalComment on above:Performed By: #### LACDS, TROPI, PRCAL, MYCM #### [facility] [employer] [address] [place] [address] 50220 MCV Entitic volume (RBC)92.2 yAVaxoet93.6-102.9Prom[facility] Flower HospitalComment on above:Performed By: #### LACDS, TROPI, PRCAL, MYCM #### [facility] [address] [place] [address] 27016 NRBC Automated0.0 per 100 WBCNormal0.0Prom[facility] Flower HospitalComment on above:Performed By: #### LACDS, TROPI, PRCAL, MYCM #### [facility] [address] [place] [address] Platelet mean volume Entitic volume (Bld)11.5 fLNormal8.1-13.5Prom[facility] Flower HospitalComment on above:Performed By: #### LACDS, TROPI, PRCAL, MYCM #### [facility] [employer] [address] [place] [address] Platelets #/vol (Bld)149 10*3/aCQydbqe079-938OsiabPromedica Flower HospitalComment on above:Performed By: #### LACDS, TROPI, PRCAL, MYCM #### [facility] [employer] [address] [place] [address] 26869 RBC #/vol (Bld)3.61 10*6/uLLow3.95-5.11Prom[facility] Flower HospitalComment on above:Performed By: #### LACDS, TROPI, PRCAL, MYCM #### [facility] [employer] [address] [place] [address] 94819 WBC #/vol (Bld)6.3 10*3/uLNormal3.5-11.3MVentura County Medical CenterComment on above:Performed By: #### LACDS, TROPI, PRCAL, MYCM #### [facility] [employer] [address] [place] [address] 56132 Auto Diff PerformedNOT REPORTEDSaint Joseph Hospital WestalPromedica Flower HospitalComment on above:Performed By: #### LACDS, TROPI, PRCAL, MYCM #### [employer] [address] [place] [address] 86755 Platelets #/vol (Bld)NOT REPORTEDNoCleveland Clinic Akron GeneralComment on above:Performed By: #### LACDS, TROPI, PRCAL, MYCM #### [employer] [address] [place] [address] 56010 RBC morphology finding Nom (Bld)NOT REPORTEDNoCleveland Clinic Akron GeneralComment on above:Performed By: #### LACDS, TROPI, PRCAL, MYCM #### [employer] [address] [place] [address] 83200 WBC MorphologyNOT REPORTEDNoC[facility] Clinic [facility] Comment on above:Performed By: #### LACDS, TROPI, PRCAL, MYCM #### [employer] [address] [place] [address] 49970 Comp Metabolic Pr/rfx MGon 08-17-2018(cont.)Premier HealthComment on above:Result Comment: Average GFR for 30-39 years old: 107 mL/min/1.73sq m Chronic Kidney Disease: <60 mL/min/1.73sq m Kidney failure: <15 mL/min/1.73sq m eGFR calculated using average adult body mass. Additional eGFR calculator available at: http://www.[employer]com/multiple_crcl_2012.htmPerformed By: #### LACDS, TROPI, PRCAL, MYCM #### [employer] [address] [place] [address] 97751 Albumin mass conc2.4 g/dLLow3.5-5.2[facility] Comment on above:Performed By: #### LACDS, TROPI, PRCAL, MYCM #### [employer] [address] [place] [address] 06914 Albumin/Globulin mass ratio0.7 {ratio}Low1.0-2.5Prom[facility] Flower HospitalComment on above:Performed By: #### LACDS, TROPI, PRCAL, MYCM #### [facility] [employer] [address] [place] [address] 40227 Alkaline Phos76 U/DMtlpyg66-634QkmaiPromedica Flower Hospital Comment on above:Performed By: #### LACDS, TROPI, PRCAL, MYCM #### [facility] [employer] [address] [place] [address] 15249 ALT enzyme act/vol25 U/LNormal5-33[facility] Comment on above:Performed By: #### LACDS, TROPI, PRCAL, MYCM #### [facility] [employer] [address] [place] [address] 31168 Anion gap molar conc8 mmol/LLow9-17[facility] Comment on above:Performed By: #### LACDS, TROPI, PRCAL, MYCM #### [facility] [employer] [address] [place] [address] 01826 AST enzyme act/vol26 U/LNormal<32[facility] Comment on above:Performed By: #### LACDS, TROPI, PRCAL, MYCM #### [facility] [employer] [address] [place] [address] 78124 Bilirubin Ql (U)0.34 mg/dLNormal0.3-1.2MVentura County Medical CenterComment on above:Performed By: #### LACDS, TROPI, PRCAL, MYCM #### [facility] [employer] [address] [place] [address] 26925 Calcium mass conc7.8 mg/dLLow8.6-10.4Prom[facility] Flower HospitalComment on above:Performed By: #### LACDS, TROPI, PRCAL, MYCM #### [facility] [employer] [address] [place] [address] 91001 Chloride molar conc99 mmol/KYbvmlr45-126OublfPromedica Flower HospitalComment on above:Performed By: #### LACDS, TROPI, PRCAL, MYCM #### [facility] [address] [place] [address] 68565 CO2 molar conc23 mmol/HTfxjyp52-64IcdegPromedica Flower Hospital Comment on above:Performed By: #### LACDS, TROPI, PRCAL, MYCM #### [facility] [employer] [address] [place] [address] 08703 Creatinine mass conc1.04 mg/dLHigh0.50-0.90Prom[facility] Flower HospitalComment on above:Performed By: #### LACDS, TROPI, PRCAL, MYCM #### [facility] [employer] [address] [place] [address] 68544 GFR, Amer>60Normal>60Prom[facility] Flower HospitalComment on above:Performed By: #### LACDS, TROPI, PRCAL, MYCM #### [facility] [employer] [address] [place] [address] 07168 GFR,non Amer59 mL/minLow>60[facility] Comment on above:Performed By: #### LACDS, TROPI, PRCAL, MYCM #### [facility] [employer] [address] [place] [address] 61276 Glucose mass qqqv969 mg/zNOlcz20-82Qsgpr [facility] Comment on above:Performed By: #### LACDS, TROPI, PRCAL, MYCM #### [facility] [employer] [address] [place] [address] 01016 Potassium molar conc3.8 mmol/LNormal3.7-5.3MVentura County Medical CenterComment on above:Performed By: #### LACDS, TROPI, PRCAL, MYCM #### [facility] [employer] [address] [place] [address] 89894 Protein mass conc5.8 g/dLLow6.4-8.3[facility] Comment on above:Performed By: #### LACDS, TROPI, PRCAL, MYCM #### [facility] [employer] [address] [place] [address] 60971 Sodium molar pgpr803 mmol/FXep851-373QuvarPromedica Flower HospitalComment on above:Performed By: #### LACDS, TROPI, PRCAL, MYCM #### [facility] [employer] [address] [place] [address] 23808 Urea nitrogen mass conc15 mg/dLNormal6-20[facility] F[facility] HospitalComment on above:Performed By: #### LACDS, TROPI, PRCAL, MYCM #### [facility] [employer] [address] [place] [address] 09464 BUN/CRE RatioNOT REPORTEDNormal9-20[facility] Comment on above:Performed By: #### LACDS, TROPI, PRCAL, MYCM #### [facility] [employer] [address] [place] [address] 70028 Staging:NOT REPORTEDNormalPromedica Flower HospitalComment on above:Performed By: #### LACDS, TROPI, PRCAL, MYCM #### [address] [address] Magnesiumon 42-62-8946Yijqozgvh mass conc2.2 mg/dLNormal1.6-2.6 [facility] HospitalComment on above:Performed By: #### LACDS, TROPI, PRCAL, MYCM #### [facility] [employer] [address] [place] [address] 15680 Procalcitoninon 65-86-1876Abuoxlj mass conc1.48 ng/mLHigh<0.09Prom[facility]ica Flower HospitalComment on above:Result Comment: Suspected Sepsis: 0.09-0.49 [...] entered into the Change in Procalcitonin Calculator (www.yoiolt-obd-xvsaaarmwy.[employer]) to determine the patient's Mortality Risk PrognosisPerformed By: #### GRACE MAY PRCAL, MYCM #### [employer] [address] [place] [address] Sedimentation Rateon 40-80-1381Ijnwdhktdiyxc Rate97 mmHigh0-20Prom[facility] Flower HospitalComment on above:Performed By: #### GRACE MAY PRCAL, MYCM #### [employer] [address] [place] [address] CBC with Diffon 73-47-6197Ouo. Basophil0.00 k/uLNormal0.00-0.20 [facility] HospitalComment on above:Performed By: #### GRACE MAY PRCAL, JAZMYN #### [employer] [address] [place] [place] [address] Abs.Imm.Granulocyte0.11 k/uLNormal0.00-0.30Prom[facility] Flower HospitalComment on above:Performed By: #### GRACE MAY PRCAL, MYCM #### [employer] [address] [place] [place] [address] Abs.Neutrophil (Seg)4.60 k/uLNormal1.50-8.10Prom[facility] Flower HospitalComment on above:Performed By: #### GRACE MAY PRCAL, MYCM #### [facility] [address] [place] [address] 56257 Basophils/100 WBC (Bld)0 %Normal0-2MVent[facility] Comment on above:Performed By: #### LACDS, TROPI, PRCAL, MYCM #### [address] [address]643 Eosinophils #/vol (Bld)0.00 10*3/uLNormal0.00-0.44Prom[facility] Flower HospitalComment on above:Performed By: #### LACDS, TROPI, PRCAL, MYCM #### [facility] [employer] [address] [place] [address] 77287 Eosinophils/100 WBC (Bld)0 %Low1-4[facility] Comment on above:Performed By: #### LACDS, TROPI, PRCAL, MYCM #### [facility] [employer] [address] [place] [address] 60411 Immature granulocytes #/vol (Bld)2 %Szua8AtlkwPromedica Flower HospitalComment on above:Performed By: #### LACDS, TROPI, PRCAL, MYCM #### [facility] [employer] [address] [place] [address] 98807 Lymphocytes #/vol (Bld)0.67 10*3/uLLow1.10-3.70Prom[facility] Flower HospitalComment on above:Performed By: #### LACDS, TROPI, PRCAL, MYCM #### [facility] [employer] [address] [place] [address] 50409 Lymphocytes/100 WBC (Bld)12 %Hyk51-48XurrgPromedica Flower HospitalComment on above:Performed By: #### LACDS, TROPI, PRCAL, MYCM #### [facility] [employer] [address] [place] [address] 69997 Monocytes #/vol (Bld)0.22 10*3/uLNormal0.10-1.20Prom[facility] F[facility] HospitalComment on above:Performed By: #### LACREY, TROPI, PRCAL, MYCM #### [employer] [address] [place] [address] 91766 Monocytes/100 WBC (Bld)4 %Normal3-12Prom[facility] Flower HospitalComment on above:Performed By: #### LACDS, TROPI, PRCAL, MYCM #### [employer] [address] [place] [address] 60668 Morphology Interp Rehan (Bld)ANISOCYTOSIS PRESENTNormalPromedica Flower HospitalComment on above:Result Comment: INCREASED BANDS PRESENT 1+ TEARDROPSPerformed By: #### LACREY, TROPI, PRCAL, MYCM #### [employer] [address] [place] [address] 42893 Neutrophil (Seg)82 %Ncvt45-83DroocPromedica Flower Hospital Comment on above:Performed By: #### LACREY, TROPI, PRCAL, MYCM #### [employer] [address] [place] [address] 62954 Erythrocyte distribution width Ratio (RBC)15.1 %High11.8-14.4Prom[facility] Flower HospitalComment on above:Performed By: #### LACDS, TROPI, PRCAL, MYCM #### [employer] [address] [place] [address] 80578 Hematocrit Volume Fraction (Bld)34.1 %Low36.3-47.1MVentura County Medical CenterComment on above:Performed By: #### LACDS, TROPI, PRCAL, MYCM #### [employer] [address] [place] [address] 19290 Hemoglobin mass conc (Bld)10.0 g/dLLow11.9-15.1MercKindred Hospital North FloridaRawls Springs Medical CenterComment on above:Performed By: #### LACDS, TROPI, PRCAL, MYCM #### [facility] [employer] [address] [place] [place] [address] MCH Entitic mass (RBC)28.7 vtAojlmc46.2-33.5Prom[facility] HospitalComment on above:Performed By: #### LACDS, TROPI, PRCAL, MYCM #### [facility] [employer] [address] [place] [place] [address] MCHC mass conc (RBC)29.3 g/wABwcbpv33.4-34.8Prom[facility] F[facility] HospitalComment on above:Performed By: #### LACDS, TROPI, PRCAL, MYCM #### [facility] [employer] [address] [place] [place] [address] MCV Entitic volume (RBC)98.0 mPHwpquh09.6-102.9Prom[facility] Flower HospitalComment on above:Performed By: #### LACDS, TROPI, PRCAL, MYCM #### [place] [address] NRBC Automated0.0 per 100 WBCNormal0.0Promedica Flower HospitalComment on above:Performed By: #### LACDS, TROPI, PRCAL, MYCM #### [place] [address] Platelet mean volume Entitic volume (Bld)11.1 fLNormal8.1-13.5Prom[facility] Flower HospitalComment on above:Performed By: #### LACDS, TROPI, PRCAL, MYCM #### [place] [address] Platelets #/vol (Bld)119 10*3/eGZmp071-310ZrcybPromedica Flower HospitalComment on above:Performed By: #### LACDS, TROPI, PRCAL, MYCM #### [employer] [address] [place] [address] 73149 RBC #/vol (Bld)3.48 10*6/uLLow3.95-5.11[facility] HospitalComment on above:Performed By: #### LACDS, TROPI, PRCAL, MYCM #### [employer] [address] [place] [address] 75230 WBC #/vol (Bld)5.6 10*3/uLNormal3.5-11.3[facility] HospitalComment on above:Performed By: #### LACDS, TROPI, PRCAL, MYCM #### [employer] [address] [place] [address] 57194 Auto Diff PerformedNOT REPORTEDPremier HealthComment on above:Performed By: #### LACDS, TROPI, PRCAL, MYCM #### [employer] [address] [place] [address] 95424 Platelets #/vol (Bld)NOT REPORTEDPremier HealthComment on above:Performed By: #### LACDS, TROPI, PRCAL, MYCM #### [employer] [address] [place] [address] 98547 RBC morphology finding Nom (Bld)NOT REPORTEDPremier HealthComment on above:Performed By: #### LACDS, TROPI, PRCAL, MYCM #### [employer] [address] [place] [address] 35471 WBC MorphologyNOT REPORTEDPremier Health Comment on above:Performed By: #### LACDS, TROPI, PRCAL, MYCM #### [employer] [address] [place] [address] HEAD WO CONTRASTon [id number] HEAD WO CONTRASTEXAMINATION: CT OF THE HEAD [...] Signed by: Erica Angeles MD 08/16/18 Final resultNormalPromedica Flower HospitalCalcium, Ionicon 08-16-2018 Calcium mass conc0.99 mmol/LLow1.13-1.33Prom[facility] Flower HospitalComment on above:Performed By: #### LACDS, TROPI, PRCAL, MYCM #### [employer] [address] [place] [address] 43608 Comp Metabolic Pr/rfx MGon 08-16-2018(cont.)NormalPromedica Flower HospitalComment on above:Result Comment: Average GFR for 30-39 years old: 107 mL/min/1.73sq m Chronic Kidney Disease: <60 mL/min/1.73sq m Kidney failure: <15 mL/min/1.73sq m eGFR calculated using average adult body mass. Additional eGFR calculator available at: http://www.[employer]com/multiple_crcl_2012.htmPerformed By: #### PT, CMPX, MG, CDP #### [facility] [facility] [place] [address] Albumin mass conc2.3 g/dLLow3.5-5.2[facility] Comment on above:Performed By: #### PT, CMPX, MG, CDP #### [facility] [employer] [address] [place] [address] 46491 Albumin/Globulin mass ratio0.7 {ratio}Low1.0-2.5Prom[facility] Flower HospitalComment on above:Performed By: #### PT, CMPX, MG, CDP #### [facility] [employer] [address] [place] [address] 26951 Alkaline Phos67 U/ADvagwb58-239JzsnoPromedica Flower Hospital Comment on above:Performed By: #### PT, CMPX, MG, CDP #### [facility] [employer] [address] [place] [address] 55769 ALT enzyme act/vol33 U/LNormal5-33[facility] Comment on above:Performed By: #### PT, CMPX, MG, CDP #### [facility] [address] [place] [place] [address] Anion gap molar conc11 mmol/LNormal9-17Prom[facility]ica Flower HospitalComment on above:Performed By: #### PT, CMPX, MG, CDP #### [facility] [address] [place] [address] 32176 AST enzyme act/vol41 U/LHigh<32[facility] Comment on above:Performed By: #### PT, CMPX, MG, CDP #### [facility] [address] [place] [address] Bilirubin Ql (U)0.40 mg/dLNormal0.3-1.2MVentura County Medical CenterComment on above:Performed By: #### PT, CMPX, MG, CDP #### [facility] [address] [place] [address] 42946 Calcium mass conc7.3 mg/dLLow8.6-10.4Prom[facility] Flower HospitalComment on above:Performed By: #### PT, CMPX, MG, CDP #### [facility] [address] [place] [address] 40516 Chloride molar ntmt405 mmol/FLuwywi51-743ByzulPromedica Flower HospitalComment on above:Performed By: #### PT, CMPX, MG, CDP #### [facility] [address] [place] [address] 53455 CO2 molar conc18 mmol/HCtg12-83TqyzyPromedica Flower Hospital Comment on above:Performed By: #### PT, CMPX, MG, CDP #### [facility] [address] [place] [address] 98144 Creatinine mass conc1.09 mg/dLHigh0.50-0.90Prom[facility]ica Flower HospitalComment on above:Performed By: #### PT, CMPX, MG, CDP #### [facility] [address] [place] [address] GFR, Amer>60Normal>60Prom[facility] Flower HospitalComment on above:Performed By: #### PT, CMPX, MG, CDP #### [facility] [address] [place] [address] 08017 GFR,non Amer56 mL/minLow>60[facility] Comment on above:Performed By: #### PT, CMPX, MG, CDP #### [facility] [address] [place] [address] 19074 Glucose mass ukym609 mg/wBZwpi84-69FqhdfVentura County Medical Center Comment on above:Performed By: #### PT, CMPX, MG, CDP #### [facility] [address] [place] [address] 05141 Potassium molar conc3.6 mmol/LLow3.7-5.3MVentura County Medical CenterComment on above:Performed By: #### PT, CMPX, MG, CDP #### [facility] [address] [place] [address] 61985 Protein mass conc5.5 g/dLLow6.4-8.3MVentura County Medical Center Comment on above:Performed By: #### PT, CMPX, MG, CDP #### [facility] [address] [place] [address] 14745 Sodium molar ekih864 mmol/CHig785-242VgiwuPromedica Flower HospitalComment on above:Performed By: #### PT, CMPX, MG, CDP #### [facility] [address] [place] [address] 84655 Urea nitrogen mass conc17 mg/dLNormal6-20Prom[facility] Flower HospitalComment on above:Performed By: #### PT, CMPX, MG, CDP #### [facility] [address] [place] [address] 57680 BUN/CRE RatioNOT REPORTEDNoal9-20[facility] Comment on above:Performed By: #### PT, CMPX, MG, CDP #### [facility] [employer] [address] [place] [address] Staging:NOT REPORTEDNormalPromedica Flower HospitalComment on above:Performed By: #### PT, CMPX, MG, CDP #### [facility] [employer] [address] [place] [address] Lactic Acid,Whole Blon 48-93-3628Vmtahu Acid,Whole Bl1.2 mmol/L Normal0.7-2.1MVentura County Medical CenterComment on above:Performed By: #### LACDS, TROPI, PRCAL, MYCM #### [facility] [employer] [address] [place] [address] Lactic Acid,Whole Bl1.2 mmol/LNormal0.7-2.1[facility] Kings HospitalComment on above:Performed By: #### LACWB #### [address] [address] Magnesiumon 03-46-0821Azslebtkp mass conc2.0 mg/dLNormal1.6-2.6 [facility] Flower HospitalComment on above:Performed By: #### LACDS, TROPI, PRCAL, MYCM #### [address] [address] Mycoplasma Ab,IgMon 18-82-9375Xkxafbfali Ab,IgM0.22Normal<0.91Promedica Flower HospitalComment on above:Result Comment: Reference Range: <=0.90 Negative 0.91-1.09 Equivocal >=1.10 PositivePerformed By: #### LACDS, TROPI, PRCAL, MYCM #### [address] [address] PTon 92-72-3554EFY Coag RelTime (PPP)1.0 {INR}NormalPromedica Flower HospitalComment on above:Result Comment: Therapeutic Range: Moderate Anticoagulant Intensity: INR = 2.0-3.0 High Anticoagulant Intensity: INR = 2.5-3.5Performed By: #### PT, CMPX, MG, CDP #### [address] [address] Prothrombin time (PT) Coag time (PPP)11.0 sNormal9.0-12.0Promedica Flower HospitalComment on above:Performed By: #### PT, CMPX, MG, CDP #### [address] [address] Troponinon 41-53-4265Kkvhgcgh I.cardiac mass concNormalPromedica Flower HospitalComment on above:Result Comment: Reference Range: <0.03 [...] information for diagnosis.Performed By: #### TROPI #### [address] [address] Troponin I.cardiac mass concng/mLNormal<0.03Promedica Flower HospitalComment on above:Result Comment: Troponin T results cannot be compared to Troponin-I results.Performed By: #### TROPI #### [address] [address] XR CHEST (2 VW)on 75-53-6628ZY CHEST (2 VW)EXAMINATION: TWO VIEWS OF THE [...] Signed by: Noe Mitchell MD 08/16/18 Final resultNormalMerSutter Medical Center of Santa RosaLactate, Sepsison 08-15-2018 Lactic Acid,Sep Wbld3.5 mmol/LHigh0.5-1.9Promedica Flower HospitalComment on above:Performed By: #### LACDS, TROPI, PRCAL, MYCM #### [address] [address] Lactic Acid, SepsisNOT REPORTEDNormal0.5-1.9Promedica Flower HospitalComment on above:Performed By: #### LACDS, TROPI, PRCAL, MYCM #### [address] [address] Legionella Ag, Uron 94-20-3289Bdkwakmozw Ag, UrSpecimen Description .CLEAN CATCH URINE Special [...] levels of this test. Report Status FINAL 08/15/2018NoCleveland Clinic Akron GeneralComment on above:Performed By: #### ULAG #### [employer] [address] [place] [address] Procalcitoninon 89-85-9464Frkragl mass conc3.39 ng/mLHigh<0.09Promedica Flower HospitalComment on above:Result Comment: Suspected Sepsis: 0.09-0.49 [...] entered into the Change in Procalcitonin Calculator (www.tiffiz-hpe-kppaqydand.GestureTek) to determine the patient's Mortality Risk PrognosisPerformed By: #### LACDS, TROPI, PRCAL, MYCM #### [employer] [facility] [place], [place] [id number] Strep pneum Ag,CSF/Uron 65-62-8901Btfto pneum Ag,CSF/UrSpecimen Description .CLEAN CATCH URINE Special Requests NOT REPORTED Direct Exam NEGATIVE: Strep pneumoniae antigen not detected Report Status FINAL 08/15/2018Premier HealthComment on above:Performed By: #### SPAG #### [employer] [address] [place] [id number] Troponinon 95-04-3603Kjcplbxk I.cardiac mass concng/mLNormal<0.03 [facility] Flower HospitalComment on above:Result Comment: Troponin T results cannot be compared to Troponin-I results.Performed By: #### LACDS, TROPI, PRCAL, MYCM #### [employer] [address] [place], [place] [id number] Troponin I.cardiac mass concNormalMercy Sierra Kings Hospital Comment on above:Result Comment: Reference Range: [...] By: #### LACDS, TROPI, PRCAL, MYCM #### [employer] [address] [place], [place] [id number] Urinalysison 42-24-4802Mavijdipy, UrineNegativeInvalid Interpretation CodeNEG;NEGATIVEADENA REGIONAL MEDICAL CENTERBlood, UrineModerate AbnormalNEG;NEGATIVEADENA REGIONAL MEDICAL CENTERInterpretation and review of laboratory resultsAbnormalInvalid Interpretation CodeADENA REGIONAL MEDICAL CENTERNitrite, UrineNegativeInvalid Interpretation CodeNEG;NEGATIVEADENA REGIONAL MEDICAL CENTERProtein, UrineNegativeInvalid Interpretation CodeNEG;NEGATIVE mg/dLADENA REGIONAL MEDICAL CENTERRBCs, Urine1 /HPFInvalid Interpretation Code0 - 5[facility] NORTHquamous Epithelial< 1Invalid Interpretation Code0 - 40 /HPFBlanchard Valley Health System [facility]uff[facility], bacteria in sedimentRare Invalid Interpretation CodeNS;RARE /HPFADENA REGIONAL MEDICAL CENTERUrine, characterHazyInvalid Interpretation CodeBlanchard Valley [facility], colorYellowInvalid Interpretation CodeBlanchard Valley [facility], glucose presenceNegativeInvalid Interpretation CodeNEG;NEGATIVE mg/dLBlanchard Valley Health [facility], ketones presenceNegativeInvalid Interpretation Code NEG;NEGATIVE mg/dLADENA REGIONAL MEDICAL CENTERUrine, leukocyte esterase presenceSmallAbnormalNegativeADENA REGIONAL MEDICAL CENTERUrine, pH6.0 [pH] Invalid Interpretation Code4.5 - 8.0AD[facility] MEDICAL CENTERUrine, specific gravity1.014 1Invalid Interpretation Code1.003 - 1.029AD[facility] REGIONAL MEDICAL CENTERUrobilinogen, Urine< 2.0Invalid Interpretation Code<2 mg/dLADENA REGIONAL MEDICAL CENTERWBCs, Urine6 /HPFHigh0 - 5AD[facility] MEDICAL CENTERCBC and Differentialon 13-71-3143Iditwuafv3.7 %Invalid Interpretation CodeADENA REGIONAL MEDICAL CENTERBasophils0.1 K/mcLInvalid Interpretation Code0 - 0.2AD[facility] MEDICAL CENTEREosinophils0.2 K/mcLInvalid Interpretation Code0 - 0.5 [facility] MEDICAL CENTERErythrocytes (RBC)3.97 M/mcLInvalid Interpretation Code3.7 - 5.0AD[facility] MEDICAL CENTERHematocrit (HCT)35.7 %Invalid Interpretation Code34.4 - 44.8 %[facility] MEDICAL CENTERHemoglobin (HGB) 12.2 g/dLInvalid Interpretation Code11.6 - 15.4 g/dLADENA REGIONAL MEDICAL CENTERInterpretation and review of laboratory resultsAbnormalInvalid Interpretation CodeADENA REGIONAL MEDICAL CENTERLymphocytes2.1 K/mcLInvalid Interpretation Code1.0 - 3.7[facility] MEDICAL CENTERH30.6 pgInvalid Interpretation Code27.9 - 33.9 pgADENA REGIONAL MEDICAL CENTERMCHC34.0 g/dL Invalid Interpretation Code33.1 - 35.1 g/dLADENA REGIONAL MEDICAL CENTERMCV89.8 fLInvalid Interpretation Code82.6 - 98.9[facility] CENTERMonocytes 0.6 K/mcLInvalid Interpretation Code0.1 - 0.6[facility] Neutrophils6.6 K/mcLInvalid Interpretation Code1.2 - 6.9[facility] MEDICAL CENTERPlatelet mean volume (PMV)8.6 fLInvalid Interpretation Code7.0 - 10.6 [facility] CENTERPlatelets196 K/mcLInvalid Interpretation Tfad085 - 402OHKETTERING HEALTHRDW-CA15.0 %High10 - 14.4 %[facility] NORTHegmented Neut69.6 %Invalid Interpretation CodeMATTHEW VILLE [address] suppressor/100 cells1.8 10*3/uLInvalid Interpretation CodeMATTHEW VILLE [address] suppressor/100 cells21.8 10*3/uLInvalid Interpretation Code [place] [address] suppressor/100 cells6.1 10*3/uLInvalid Interpretation CodeADENA REGIONAL MEDICAL CENTERWBC (Leukocytes)9.5 K/mcLInvalid Interpretation Code3.4 - 10.6[facility] CENTERComprehensive Metabolic Panelon 74-13-6518Uamvcrf aminotransferase (ALT)18 U/LInvalid Interpretation Code14 - 65 U/[facility] CENTERAlbumin3.1 g/dLLow3.2 - 5.2 g/dLADENA REGIONAL MEDICAL CENTERAlkaline phosphatase (ALP)78 U/LInvalid Interpretation Code40 - 140 U/[facility] CENTERAspartate aminotransferase (AST)7 U/LInvalid Interpretation Code0 - 45 U/[facility] CENTERCalcium8.6 mg/dLInvalid Interpretation Code8.4 - 10.2 mg/dL [facility]ENTERChloride106 mmol/LInvalid Interpretation Code98 - 108 mmol/[facility]ENTERCO227 mmol/LInvalid Interpretation Code21 - 32 mmol/[facility] CENTERCreatinine1.13 mg/dLHigh0.4 - 1.1 mg/dL [facility] CENTEReGFR (black)mL/min/{1.73_m2}Invalid Interpretation Codeml/min/1.73sq.[facility] Fairview HospitaleGFR (non-black)54 mL/min/{1.73_m2}Low>60[facility] CENTERGlucose113 mg/sBCbki61 - 99 mg/dLADENA REGIONAL MEDICAL CENTERInterpretation and review of laboratory resultsAbnormalInvalid Interpretation CodeADENA REGIONAL MEDICAL CENTERPotassium 3.7 mmol/LInvalid Interpretation Code3.5 - 5.1 mmol/[facility]ENTERProtein6.8 g/dLInvalid Interpretation Code6 - 8 g/dLPREMIER HEALTH MIAMI VALLEY HOSPITAL NORTHodium140 mmol/LInvalid Interpretation Gpsd919 - 145 mmol/[facility] CENTERUrea mg/dLInvalid Interpretation Code8 - 25 mg/dL [facility] CENTERUrine, bilirubin presence0.4 mg/dLInvalid Interpretation Code0.3 - 1.2 mg/dLADENA REGIONAL MEDICAL CENTERLipaseon 35-69-5855Ospluc280 U/LInvalid Interpretation Code73 - 393 U/[facility] Vital Signs Date TimeVital SignValuePerforming WeuoeccuwMnuwkhca58-78-2903 11:47-0400Body bdvyvo794.5 cmJennie Van PICTURE COPYIST-OUTDOOR ILLUMINATING ENGINEER Work Phone: [place] [phone] 11:47-0400Body mass index (BMI) [Ratio]38.41 kg/r6FxhsjgeJennie Van PICTURE COPYIST-OUTDOOR ILLUMINATING ENGINEER Work Phone: [place] [phone] 11:47-0400Body tlwael08.25 kgJecarlos Van PICTURE COPYIST-OUTDOOR ILLUMINATING ENGINEER Work Phone: [place] [phone] 11:47-0400Diastolic blood cxgfevan66 mm[Hg]Jennie Van PICTURE COPYIST-OUTDOOR ILLUMINATING ENGINEER Work Phone: [place] [phone] 11:47-0400Respiratory rate18 /minJesssandeep Van PICTURE COPYIST-OUTDOOR ILLUMINATING ENGINEER Work Phone: [place] [phone] 11:47-0495EsH1% (BldA) [Mass fraction]98 %Jennie Van PICTURE COPYIST-OUTDOOR ILLUMINATING ENGINEER Work Phone: [place] [phone] 11:47-0400Systolic blood lwzschej589 mm[Hg]Jennie Van PICTURE COPYIST-OUTDOOR ILLUMINATING ENGINEER Work Phone: [facility] HealthOvwixprhft44-77-9970 12:32-0400Body lynfeo100.5 Bihristophmichael Sánchez DPM Work Phone: [facility] HealthBtwwekulpy58-44-8002 12:32-0400Body mass index (BMI) [Ratio]38.41 kg/j9Pfkihjhtsta Bohach DPM Work Phone: [facility] HealthMafzmfeaxh77-99-4905 12:32-0400Body .25 kgChristopher Bohach DPM Work Phone: [facility] HealthZdsyaozqnd37-23-3361 12:32-0400Diastolic blood wkmsxacb14 mm[Hg]Christopher Bohach DPM Work Phone: [facility] HealthWdgnpdttas25-21-1730 12:32-0400Heart akqd460 /min Christopher Bohach DPM Work Phone: [facility] HealthIlsvcduohp42-75-3273 12:32-0400Systolic blood zoctwitw078 mm[Hg]Christopher Bohach DPM Work Phone: [facility] HealthZmsqgrtdav86-24-8806 16:21-0400Body uxmzuf289.5 cmChristopher Bohach DPM Work Phone: [facility] HealthMspmyxukxi66-36-9209 16:21-0400Body mass index (BMI) [Ratio]38.41 kg/q2Aebpvyrdisr Bohach DPM Work Phone: [facility] HealthUjesrghvut89-78-0437 16:21-0400Body dxruvi22.25 kgChristopher Bohach DPM Work Phone: [facility] HealthUuiofzrwsd06-48-3505 16:21-0400Diastolic blood dvkmtogf53 mm[Hg]Christopher Bohach DPM Work Phone: [facility] HealthKoclkfwpbn27-71-0332 16:21-0400Heart rate89 /min Christopher Bohach DPM Work Phone: [facility] HealthGbeziytury63-39-8181 16:21-0400Systolic blood rxoizsgv425 mm[Hg]Christopher Bohach DPM Work Phone: [facility] HealthXqagatnitu69-21-6314 23:15-0400Diastolic blood mm[Hg]Severo Case MD Work Phone: [phone] [facility] CenterWebKite [facility] HospitalIedata14-06-2240 23:15-0400Heart rate74 /minSevero Case MD Work Phone: [phone] [facility] CenterWebKite [facility] HospitalOclwwl48-93-5247 23:15-0400 Respiratory rate16 /minSevero Case MD Work Phone: [phone] [facility]07-01-2025 23:15-0687PlW9% (BldA) [Mass fraction]97 %Severo Case MD Work Phone: [phone] [facility]07-01-2025 23:15-0400Systolic blood yigkxziy084 mm[Hg]Severo Case MD Work Phone: [phone] [facility]07-01-2025 21:24-0400Body .4 cmSevero Case MD Work Phone: [phone] [facility]07-01-2025 21:24-0400Body mass index (BMI) [Ratio]41.99 kg/i6MbekngSevero Case MD Work Phone: [phone] [facility] CenterWebKite [facility] HospitalEmvikb89-60-8837 21:24-0400Body .52 kgSevero Case MD Work Phone: [phone] [facility]07-01-2025 21:15-0400Body ddyapevcrns51 [degF]Severo Case MD Work Phone: [phone] [facility]06-10-2025 12:02-0400Body .5 cmLynn Block MD Work Phone: [facility] HealthElroorcfvh78-58-0530 12:02-0400Body mass index (BMI) [Ratio]38.41 kg/m2Lynn Block MD Work Phone: [facility] HealthKvgliutupv25-54-2392 12:02-0400Body efqjxf09.25 kgLynn Block MD Work Phone: [phone] [place], [place] [address]Vfgkodvdar74-30-4683 13:00-0500Body hufbdi518.5 cmLynn Block MD Work Phone: [facility] HealthYpbzvfhxvt63-96-1796 13:00-0500Body mass index (BMI) [Ratio]38.41 kg/m2Lynn Block MD Work Phone: [facility] HealthPfnwvhfhlo18-85-1984 13:00-0500Body uwunwn24.25 kgLynn Block MD Work Phone: [phone] [place], [place] [address]Lfvdviugml43-93-1547 11:31-0500Body cunqpx840.5 cmFealli Yusra SQUARE DANCE CALLER Work Phone: [phone] [place], [place] [address]Sanpwxpyeo83-64-6246 11:31-0500Body mass index (BMI) [Ratio]37.9 kg/o8Xsfsqxa Megannagel SQUARE DANCE CALLER Work Phone: [phone] [place], [place] [address]Qawyjwfyqn53-05-7864 11:31-0500Body nkylyf55.98 kgFemadelynia Megannagel SQUARE DANCE CALLER Work Phone: [phone] [place], [place] [address]Nekdahwiva89-71-3258 11:31-0500Diastolic blood bdspywxh40 mm[Hg]Fozia Megannagel SQUARE DANCE CALLER Work Phone: [phone] [place], [place] [address]Laacuoyium29-46-0562 11:31-0500Systolic blood fyazubmd631 mm[Hg]Fozia Megannagel SQUARE DANCE CALLER Work Phone: [phone])891-[address] [place], [place] [address]Utimsaswdu35-66-9414 09:42-0500Body hhmssa254.5 Jimmy Adair MD Work Phone: [phone]glngu19-59-9352 09:42-0500Body mass index (BMI) [Ratio]38.23 kg/m2Dimas Adair MD Work Phone: [phone]fbben06-33-9348 09:42-0500Body cuxupxcbect73.29 [degF]Dimas Adair MD Work Phone: [phone]) [phone]xqdpz50-20-7733 09:42-0500Body eelnra57.8 kgDimas Adair MD Work Phone: 1(485) [phone]vbxsu30-79-2091 11:30-0500Body oirtcq142.5 cm Fozia Meng SQUARE DANCE CALLER Work Phone: [facility] HealthAvjzkmnhqw09-55-7954 11:30-0500Body mass index (BMI) [Ratio]39.91 kg/h2ExcxrohFozia Meng SQUARE DANCE CALLER Work Phone: [facility] HealthUnpksrlujq20-41-9220 11:30-0500Body aznchv08.97 kgFozia Meng SQUARE DANCE CALLER Work Phone: [facility] HealthDeqxmmsgyh53-69-5160 11:30-0500Diastolic blood vohtqiom95 mm[Hg]Fozia Meng SQUARE DANCE CALLER Work Phone: [facility] HealthOqbyrtwsak88-17-6167 11:30-0500Systolic blood mm[Hg]Fozia Meng SQUARE DANCE CALLER Work Phone: [facility] HealthDdpaliqaps76-53-2500 10:09-0400Body umfynk773.5 cmTrace Casas MD Work Phone: [facility] HealthNywigjmudy36-21-4818 10:09-0400Body mass index (BMI) [Ratio]38.96 kg/d7EygrjyrTrace Casas MD Work Phone: [facility] HealthPzyrmgstvy50-65-8207 10:09-0400Body hlolza92.62 kgTrace Casas MD Work Phone: [facility] HealthGyccerkjvy82-58-5204 10:09-0400Diastolic blood auwkoycd12 mm[Hg]Trace Casas MD Work Phone: [facility] HealthTmvgsurfxa38-36-1657 10:09-0400Systolic blood xuxleume825 mm[Hg]Trace Casas MD Work Phone: [facility] HealthZeugjxbfnz22-84-0225 14:20-0400Body .5 cmNicole Ginger DO Work Phone: NODeaconess Incarn[facility] Word Health SystemZgopjgbdzk48-34-7006 14:20-0400Body mass index (BMI) [Ratio]38.41 kg/b9Bcumks Ginger DO Work Phone: NODe[facility] Health SystemZzejoehkfc01-09-4826 14:20-0400Body rzyhqi99.25 kgNicole Ginger DO Work Phone: NOD[facility] Health SystemMzuvvayswx12-47-5677 14:20-0400Diastolic blood mm[Hg]Cheryl Ginger DO Work Phone: NODe[facility] Health SystemSfwoozbcjr44-23-5577 14:20-0400Heart rate83 /min Cheryl Ginger DO Work Phone: NOD[facility] Health SystemTytaturznc12-35-6291 14:20-5243DuE9% (BldA) [Mass fraction]97 %Cheryl Ginger DO Work Phone: noDeaconess Incarnate Word Health SystemTwoevwmdyy37-10-5713 14:20-0400Systolic blood sanxneze498 mm[Hg]Cheryl Ginger DO Work Phone: [facility] HealthQkpmeiwluf37-56-6979 14:44-0400Body temperature 98.49 [degF]MASSIMO Shook DPM Work Phone: [phone]xqqat86-28-2526 14:44-0400Diastolic blood uetemaiq97 mm[Hg]MASSIMO Shook DPM Work Phone: [phone]bypcm91-82-7655 14:44-0400Heart rate94 /minMASSIMO Shook DPM Work Phone: [phone]vqcio41-72-2505 14:44-0400Systolic blood pressure 139 mm[Hg]MASSIMO Shook DPM Work Phone: [phone]fxqfb62-43-4433 09:36-0400Body zqsnsu151.5 cmMwhz Education Work Phone: bon [employer]09-28-2022 09:36-0400Body mass index (BMI) [Ratio]38.67 kg/m2Mwhz Education Work Phone: bon [employer]09-28-2022 09:36-0400Body smbtua92.89 kgMwhz Education Work Phone: bon [facility]12-13-2020 20:53-0500BMI (Body Mass Index)39.32 kg/g0PprshkpfvqzAndrew, [place]12-13-2020 20:53-0500Body Izishfmzjad03.5 [degF][place] 09-16-2020 20:53-0500Body qbytxu79.52 kgAndrew, [place] 09-16-2020 20:53-0500BP Thpcaxpko344 mm[Hg][place] 09-16-2020 20:53-0500BP Gdgrordg507 mm[Hg][place] 09-16-2020 20:53-1003Ortywg015.5 [place] 09-16-2020 20:53-0500Pulse (Heart Rate)99 /minAndrew, [place]12-13-2020 20:53-0500Pulse Gjnuiqst90 %[place] 09-16-2020 20:53-0500Respiratory Rate18 /minC[facility], [place] Encounters Encounter DateEncounter TypeCare ProviderFacilityStart: 08-02-2025 End: 98-93-7616pzhrotbbphRVSYLUniversity Hospitals Conneaut Medical Centertart: 08-02-2025 End: 22-19-5448Qlulspawdh hospital visit by physicianMorgan Stanley Children'S Hospitaluzair Laboratory Schedule [facility] LaboratoryComment on above:Stage 3a chronic kidney disease (HCC); Pre-diabetesStart: 07-29-2025 End: 62-71-7257XrbuaoBacnnjcvlwSara Allen NP Work Phone: [facility] NeurologyComment on above:Idiopathic progressive polyneuropathy; Non-seasonal allergic rhinitis due to pollenStart: 07-21-2025 End: 90-04-7278wrqexcdeptEPGADATSTidelands Waccamaw Community Hospitaltart: 07-21-2025 End: 52-41-6882Ykdqtrefxp hospital [facility]Man[facility] Laboratory Schedule [facility] LaboratoryComment on above:ArrivedStart: 06-12-2025 End: 31-71-4621nfodqsimlzMPCHUMNOAD MILLERMercy Willard HospitalStart: 06-12-2025 End: 79-85-1124Dhucpclyga hospital visit by physicianKendall Laboratory Schedule [facility] LaboratoryComment on above:ArrivedStart: 05-24-2025 End: 65-64-1136Miqqju [employer] PICTURE COPYIST-OUTDOOR ILLUMINATING ENGINEER Work Phone: noms NEUROLOGYStart: 05-24-2025 End: 83-35-3729Msiobc [employer]heetT[employer] PICTURE COPYIST-OUTDOOR ILLUMINATING ENGINEER Work Phone: noms NEUROLOGYStart: 05-24-2025 End: 46-83-4634ewoygshkhxUJGSETO SPRINGERMercy Hospital St. Louis AvailableStart: 05-24-2025 End: 02-18-5821Pkhjft outpatient visit 25 minutesJeMallory Community Health Center PICTURE COPYISTMeilleurMobile Work Phone: noms Brenda NeurologyComment on above:BUCK (obstructive sleep apnea) (Primary Dx); Cervical paraspinal muscle spasm; Cervical radiculopathyStart: 05-23-2025 End: 50-90-8499Gjtuebfgz encounterMark Trista Block MD Work Phone: noms [facility] 111Start: 05-15-2025 End: 62-24-9252kqcadfbykkJCXFE D [facility] Medical Centertart: 05-15-2025 End: 63-99-9795Bydrumdtgr hospital visit by physicianKendall Laboratory Schedule [facility] LaboratoryComment on above:ArrivedStart: 04-20-2025 End: 54-00-4882Fphblk flowsTeresa Sánchez DPM Work Phone: noms WW[facility] PODIATRYStart: 04-20-2025 End: 03-77-1729Jfcuyrame Sánchez DPM Work Phone: noms WWW PODIATRYStart: 04-20-2025 End: 92-76-9056Oxcoom outpatient visit 25 minutesRobbin Sánchez DPM Work Phone: noms [facility] PODIATRYComment on above:MRSA (methicillin resistant staph aureus) culture positive (Primary Dx); Right foot pain; Skin ulcer of toe of right foot with fat layer exposed (HCC); Idiopathic progressive polyneuropathy; Infection of toe; Charcot arthropathy of midfoot; Ulcer of left foot, limited to breakdown of skin (HCC); Closed nondisplaced fracture of second metatarsal bone of right foot, initial encounterStart: 04-20-2025 End: 80-78-0344mfireszckoRCFVRHBZVAK J BOHACHNot AvailableStart: 04-14-2025 End: 76-97-6884gatwbzhvvgYUPDPDank Powell HospitalStart: 04-14-2025 End: 82-88-0860Jbrgeofwma hospital visit by Paola Adam MD Work Phone: mZ LaboratoryComment on above:Hyperglycemia; Mixed hyperlipidemia; Chronic renal impairment, stage 3a ([facility])Start: 04-12-2025 End: 89-58-7761Bvfjtfoga Result EncounterChriskyle Sánchez DPM Work Phone: noms External Department UnsolicitedStart: 04-12-2025 End: 25-64-2718Rzmkjwecw Result EncounterChjorge Sánchez DPM Work Phone: noms External Department UnsolicitedStart: 04-11-2025 End: 93-93-7666Lpzaeklhi Result EncounterChjorge Sánchez DPM Work Phone: noms External Department UnsolicitedStart: 04-11-2025 End: 65-16-8169Nngsrmtwp Result EncounterChriskyle Sánchez DPM Work Phone: noms External Department UnsolicitedStart: 04-11-2025 End: 07-56-0537yhwqbpvgchZSKATMBMMBRWiley Powell HospitalStart: 04-11-2025 End: 54-69-7161Yyukfckpgv hospital visit by Anisha Sánhcez DPM Work Phone: [facility] HospitalComment on above:Pain in right footStart: 04-06-2025 End: 81-62-8179Tdwbug outpatient visit 25 minutesChjorge Sánchez DPM Work Phone: noms WWW PODIATRYComment on above:Right foot pain (Primary Dx); Skin ulcer of toe of right foot with fat layer exposed (HCC); Infection of toe; Idiopathic progressive polyneuropathy; Generalized edemaStart: 04-06-2025 End: 30-48-3772jmhjwolhauAUJIQEZXVJG J BOHACHNot AvailableStart: 04-06-2025 End: 92-91-1381Qpawaf flowsTeresa Sánchez DPM Work Phone: noms WWW PODIATRYStart: 04-06-2025 End: 55-64-5829Bnzcme Batsheva Sánchez DPM Work Phone: noms WWW PODIATRYStart: 04-04-2025 End: 55-85-7779Vhabafqlk department patient visitSevero Case MD Work Phone: [facility] Emergency DepartmentComment on above: Pressure injury of deep tissue of toe, unspecified laterality (Primary Dx)Start: 03-14-2025 End: 18-53-6006Hiqoeuame Block MD Work Phone: noms NEUROLOGYStart: 03-14-2025 End: 17-38-7116Afifdgame Block MD Work Phone: [facility] NEUROLOGYStart: 03-14-2025 End: 74-00-0280Wmhwxs outpatient visit 25 minutesLynn Block MD Work Phone: [facility] NEUR BComment on above:BUCK (obstructive sleep apnea) (Primary Dx); Claustrophobia ; HypersomniaStart: 03-14-2025 End: 74-55-3786ahpftyfyxzZLCK D BEJNot AvailableStart: 02-15-2025 End: 04-37-9727kpvjxfkwpkPZQMQ [facility] Cent[facility]art: 02-15-2025 End: 90-07-2639Rgscwosjje hospital visit by Paola Adam MD Work Phone: [facility] MammographyComment on above: Encounter for screening mammogram for malignant neoplasm of breastStart: 67-89-0426ggcwcwdqfeSofstenu:FTMCStart: 02-13-2025 End: 22-69-6850Zxhfwr Therese Casas MD Work Phone: [facility] NEUROLOGYStart: 02-13-2025 End: 39-40-0975Vwnngs Therese Casas MD Work Phone: [facility] NEUROLOGYStart: 02-13-2025 End: 46-06-9737zjdwobkeaaZEUFMSI W BAUERNot AvailableStart: 02-13-2025 End: 07-29-2572Mymojr outpatient visit 25 minutesTrace Casas MD Work Phone: [facility] NEURComment on above:Charcot's joint, left ankle and foot (Primary Dx); Gait instability; Idiopathic progressive polyneuropathy; Intractable 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 (CMS/HCC); Restless legs; Carpal tunnel syndrome, bilateral; BUCK (obstructive sleep apnea)Start: 12-06-2024 End: 41-95-2252Afuipl Magen Block MD Work Phone: noms NEUROLOGYStart: 12-06-2024 End: 09-38-3283Vojtzc Magen Block MD Work Phone: noms NEUROLOGYStart: 12-06-2024 End: 48-54-3437yrtohkbikkHLHC D BEJNot AvailableStart: 12-06-2024 End: 96-17-5738Uharez outpatient new 60 minutesLynn Block MD Work Phone: noms SWS NEUR BComment on above:BUCK (obstructive sleep apnea) (Primary Dx); BUCK on CPAP; Claustrophobia (CMS/HCC)Start: 11-14-2024 End: 19-93-2480Vkunyj flowsheetFelicia C Windnagel SQUARE DANCE CALLER Work Phone: noms BM NEUROLOGYStart: 11-14-2024 End: 15-21-8153Rigxdx flowsheetFelicia C Windnagel SQUARE DANCE CALLER Work Phone: noms BM NEUROLOGYStart: 11-14-2024 End: 49-78-0198Olotcb outpatient visit 25 minutesFelicia Jamila Guzmannagel SQUARE DANCE CALLER Work Phone: noms SWS NEURComment on above:BUCK on CPAP (Primary Dx); Idiopathic progressive polyneuropathy; Restless legs; Intractable 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 (CMS/HCC) Start: 11-14-2024 End: 75-89-4095uaqogpmsmxUCJAMHF C JAIMEEGELNot AvailableStart: 11-14-2024 End: 25-82-9975eqbkrlheabQFTUB BACKCleveland Clinic Avon Hospitaltart: 11-14-2024 End: 41-77-5604Hrlvvfsnhd hospital visit by Paola Adam MD Work Phone: mZ LaboratoryComment on above:Pre-diabetes; Mixed hyperlipidemiaStart: 11-02-2024 End: 41-90-2651Cgffcublv encounterJanel Allen SQUARE DANCE CALLER Work Phone: noms [facility] NEURO 210Start: 10-11-2024 End: 27-47-7139Iivffd outpatient new 45 minutesBilrubens Adam MD Work Phone: [facility] Throat PhysiciansComment on above:Thyroid nodule (Primary Dx); Lipoma of neckStart: 10-11-2024 End: 84-93-4803grddlczqgzVCNYY BACKOhio Health AmbulatoryStart: 10-05-2024 End: 49-98-5391CnqlzxRkigmby W Bauer MD Work Phone: noms SWS NEURComment on above:Idiopathic progressive polyneuropathy; Non-seasonal allergic rhinitis due to pollenStart: 09-14-2024 End: 20-95-6604Oicguo flowsheetFelicia C Megannashena SQUARE DANCE CALLER Work Phone: noms BM NEUROLOGYStart: 09-14-2024 End: 07-15-2437Ndpemu flowsheetFemadelynia Jamila Meng SQUARE DANCE CALLER Work Phone: noms BM NEUROLOGYStart: 09-14-2024 End: 20-52-3014Jawuxorkc encounterFelicvirgen Meng SQUARE DANCE CALLER Work Phone: noms [facility] NEURO 210Start: 09-14-2024 End: 59-39-9216Vvfymc outpatient visit 25 minutesFelicvirgen Meng SQUARE DANCE CALLER Work Phone: noms SWS NEURComment on above:BUCK on CPAP (Primary Dx); Idiopathic progressive polyneuropathy; Intractable 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 (CMS/HCC); Restless legs; Bilateral carpal tunnel syndromeStart: 09-14-2024 End: 91-23-4505pnqgrzlzyhMMLQJYF Jamila YUSRANot AvailableStart: 09-09-2024 End: 66-84-9722Obvtcdvmxv OrdersFelicia Bangcharlotte hungerford hospitalt [facility] ENT [place]landComment on above:Thyroid nodule (Primary Dx)Start: 09-06-2024 End: 40-53-5683umewnsxtbtSALXKNorwalk Memorial Hospitaltart: 09-06-2024 End: 78-02-8299Gzbzddufvt hospital visit by physicianFelipe Adam MD Work Phone: [facility] UltrasoundComment on above: Thyroid noduleStart: 08-11-2024 End: 52-18-2153VdnmegHbdpaae W Bauer MD Work Phone: noms SWS NEURComment on above:Idiopathic progressive polyneuropathy; Non-seasonal allergic rhinitis due to pollenStart: 06-10-2024 End: 15-48-0569Latgwi Therese Casas MD Work Phone: noms BM NEUROLOGYStart: 06-10-2024 End: 99-86-9632Stvudh Therese Casas MD Work Phone: noms BM NEUROLOGYStart: 06-10-2024 End: 58-84-4828Nwwamb outpatient visit 25 minutesTrace Casas MD Work Phone: noms [facility] NEURComment on above:Idiopathic progressive polyneuropathy (Primary Dx); Bilateral carpal tunnel syndrome; Restless legs; Intractable 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 (CMS/HCC) Start: 06-10-2024 End: 74-67-2217zbbrpvhvurTRUQBMA W BAUERNot AvailableStart: 05-10-2024 End: 24-50-0120Xsabsjfbaa hospital visit by Paola Adam MD Work Phone: mwhZ LaboratoryStart: 05-10-2024 End: 03-49-1868Qjxqod outpatient visit 40 minutesNicole Ginger DO Work Phone: noms WNZ NEUROComment on above:BUCK (obstructive sleep apnea); Hypersomnia; Snoring; Class 2 obesity due to excess calories with body mass index (BMI) of 38.0 to 38.9 in adult, unspecified whether serious comorbidity presentStart: 02-15-2024 End: 90-81-2731boxcodhmwrMqqns D HighlanderFacility:[facility] Hospitaltart: 02-15-2024 End: 35-45-4803rqwajrwdtaTUR [facility] Work Phone: [facility] Work Phone: Start: 02-15-2024 End: 13-55-6852Lvhumgbt ReferredDP [facility] Work Phone: [facility]-LAB Path Spec Ursula HospStart: 06-15-2023 End: 11-61-6824Grmideitrs hospital visit by Paola Adam MD Work Phone: mWHZ LaboratoryComment on above:Mixed hyperlipidemia Start: 85-06-0574eaqrerpifuCMTUHCleveland Clinic Mentor Hospital PhysiciansStart: 03-03-2023 End: 87-68-9770Epihxb outpatient new 45 minutesMASSIMO Shook DPM Work Phone: [facility] Physicians GroupComment on above:Charcot arthropathy of midfoot (Primary Dx); Gastrocnemius equinus, unspecified laterality; Foot pain, leftStart: 02-11-2023 End: 77-95-1347iupztxuwtrOAMAB D HIGHLANDERFacility:R0Vzzps: 02-05-2023 End: 14-21-4818Hpdntvjnrv hospital visit by Paola Adam MD Work Phone: mZ LaboratoryComment on above:Pelvic pressure in femaleStart: 02-04-2023 End: 23-90-7677pzzxfubpuoYUPFY D [facility] HOSPITALANDERFacility:B1Luuyi: 01-28-2023 End: 96-28-9931bcrpjfksvdEOSCU D [facility] HOSPITALANDERFacility:S0Nrhnx: 01-06-2023 End: 24-68-3711Yludjogqk department patient visitBeth David Hospitaltart: 07-09-2022 End: 33-15-4608Ziinyfuodp hospital visit by JOE Rod RD Work Phone: mZ Diet and NutritionComment on above:ArrivedStart: 07-02-2022 End: 45-82-5742Uturckrehl hospital visit by Efren Diabetes Education Work Phone: mWHZ Diabetic EducationStart: 06-25-2022 End: 04-32-1975Yfnbudgtej hospital visit by physicianTennille Additional [facility] RadiologyComment on above:Foreign body (FB) in soft tissue Start: 06-25-2022 End: 30-07-1323Cvcadlwfyv hospital visit by [facility] Mri Scanner [facility] Hospitalard MRIComment on above:Pain of foot, unspecified laterality; Closed nondisplaced fracture of second metatarsal bone of left foot, initial encounter; Closed nondisplaced fracture of lateral cuneiform of left foot, initial encounterStart: 05-27-2022 End: 69-29-6500Fsgwrczzgz hospital visit by physicianM[facility] Ultrasound Room [facility] UltrasoundComment on above:Neck massStart: 04-28-2022 End: 45-67-8128ppqlhgdpewHOHCVF S GOINESMercy Northwest Medical Centertart: 04-28-2022 End: 06-39-7840Avpimsqpjb hospital visit by Paola Adam MD Work Phone: MALZ LABORATORYComment on above:Acute cystitis with hematuriaStart: 04-12-2022 End: 55-45-7207Wklufykixx hospital visit by Paola Adam MD Work Phone: mWHZ LaboratoryComment on above:Fatigue, unspecified type; Encounter for screening for HIV; Mixed hyperlipidemia; Hyperglycemia; Chronic renal impairment, stage 3b (HCC)Start: 02-05-2022 End: 02-82-4042Szlgbapcxa hospital visit by Kaylah PAYTON Physical TherapyStart: 02-04-2022 End: 89-97-9637Qokgjjw encounter procedurePromedica Flower Hospital Ctr-MRI Strub RdStart: 02-03-2022 End: 23-81-7693Isanfhirwj hospital visit by Bradley Johnson Physical TherapyStart: 01-29-2022 End: 58-30-7292Jektulersa hospital visit by Ivan VIGIL Physical TherapyComment on above:ArrivedStart: 01-27-2022 End: 37-58-7864Trfymruzei hospital visit by Kaylah PAYTON Physical TherapyComment on above:ArrivedStart: 01-24-2022 End: 22-21-6508Xszftlvugo hospital visit by Jojo GREENZ Physical TherapyComment on above:ArrivedStart: 01-22-2022 End: 83-03-1932Grlaxxjjjg hospital visit by Ivan VIGIL Physical TherapyStart: 01-17-2022 End: 44-35-8841Oagqcwulyh hospital visit by Ivan VIGIL Physical TherapyComment on above:ArrivedStart: 01-13-2022 End: 24-07-4015Tusiacqwpf hospital visit by Kaylah PAYTON Physical TherapyStart: 01-03-2022 End: 80-96-2330Yvtsqwcitq hospital visit by Ivan Rangel PTAMWHZ Physical TherapyComment on above:ArrivedStart: 12-31-2021 End: 29-01-1403Cqzyeapovr hospital visit by Renetta Herman OTMWHUzair Occupational TherapyComment on above:ArrivedStart: 12-30-2021 End: 41-66-9323Kibbctlhmj hospital visit by Renetta Herman OTDOCTORS HOSPITALUzair Occupational TherapyComment on above:ArrivedStart: 12-23-2021 End: 08-09-2336Tvraxfptmk hospital visit by Renetta Herman OTDOCTORS HOSPITALUzair Occupational TherapyComment on above:ArrivedStart: 11-29-2021 End: 77-38-4241kthmsguyoqZPCXHHouston Healthcare - Perry Hospitaltart: 08-01-2021 End: 00-33-4717Arcsaminju hospital visit by Paola Adam MD Work Phone: mR LaboratoryComment on above:Frequent UTI; Urinary urgency; Urinary frequencyStart: 07-11-2021 End: 38-13-6357Ktvokbxiqq hospital visit by Paola Adam MD Work Phone: mwhz LaboratoryComment on above:Frequent UTI; Urinary urgency; Urinary frequencyStart: 06-11-2021 End: 37-78-7156Inuyifnbar hospital visit by Paola Adam MD Work Phone: mwhz LaboratoryComment on above:Acute cystitis with hematuria; Recurrent UTIStart: 05-27-2021 End: 39-70-9917Wpbvuhcytg hospital visit by Paola Adam MD Work Phone: mwhz LaboratoryComment on above:Difficult or painful urinationStart: 05-20-2021 End: 69-41-7523Ynvkllzwsf hospital visit by Paola Adam MD Work Phone: mwhz LaboratoryStart: 04-13-2021 End: 15-73-6702Duntbokxqb hospital visit by Paola Adam MD Work Phone: mwhz LaboratoryComment on above:Acute cystitis with hematuriaStart: 02-13-2021 End: 06-93-6208Tlaihnbrnb hospital visit by physicianM[facility] Andriy19 Pat Screening ScheduleMWHZ PRE ADMITComment on above:Suspected COVID-19 virus infectionStart: 01-21-2021 End: 82-55-3047Efyiyiytwx hospital visit by physicianM[facility] Covid19 Pat Screening ScheduleMWHZ PRE ADMITComment on above:Viral illnessStart: 11-15-2020 End: 64-06-5298Ahhiaulbez hospital visit by physicianM[facility] Covid19 Pat Screening ScheduleMWHZ PRE ADMITComment on above:ArrivedStart: 09-16-2020 End: 56-65-2022Ftuhuwjor department patient visitChjorge Rooney Work Phone: [facility] EDComment on above:Acute thoracic back pain, unspecified back pain laterality (Primary Dx)Start: 08-24-2020 End: 13-31-4992Wkrsgxsmkm hospital visit by physicianFranklin County Memorial Hospitalrubens AdamDOCTORS HOSPITALUzair Laboratory Comment on above:Epidural abscessStart: 08-08-2020 End: 78-89-9299Vgcbpqxhbs hospital visit by physicianFranklin County Memorial Hospitalrubens AdamDOCTORS HOSPITALUzair Laboratory Comment on above:SOB (shortness of breath)Start: 07-24-2020 End: 44-40-1786Ztcplkimvs [facility] BackDOCTORS HOSPITALUzair Laboratory Comment on above:Epidural abscessStart: 06-07-2020 End: 74-35-1649Aedgggapvo hospital [facility] by [facility]HU[facility] Start: 05-25-2020 End: 39-54-2645Qucszkvcpm hospital visit by physicianU[facility] BackDOCTORS HOSPITALUzair Laboratory Comment on above:Vitamin D deficiency; Mixed hyperlipidemia; HyperglycemiaStart: 12-14-2019 End: 64-73-2274Hmwlwlyrkd hospital visit by physicianU[facility] BackDOCTORS HOSPITALUzair Laboratory Comment on above:MRSA (methicillin resistant Staphylococcus aureus) septicemia (HCC)Start: 09-24-2019 End: 56-05-4396Rqjvverzgw hospital visit by Paola Adam MD Work Phone: DOCTORS HOSPITALZ LaboratoryStart: 09-12-2019 End: 22-16-4007Nsrxequhxy hospital visit by physicianBilly Back MD Work Phone: MWHZ SLEEP LABStart: 08-29-2019 End: 61-49-9675Xkirltlhrg hospital visit by [facility] Schedule [facility] SLEEP LABComment on above:ArrivedStart: 07-28-2019 End: 87-22-7982Lqgwnszggq hospital visit by Kong Campos [facility] RadiologyComment on above:MRSA (methicillin resistant Staphylococcus aureus) septicemia (HCC)Start: 06-17-2019 End: 44-45-5006Ezklomiqjy hospital visit by Paola Pappas Laboratory Comment on above:MRSA (methicillin resistant Staphylococcus aureus) infection Start: 02-03-2019 End: 30-47-1951Hraqswz encounter procedureCHOCT[facility] Start: 02-03-2019 End: 42-23-6115Huoclcflwh hospital visit by Nilesh Casas Work Phone: [facility] MRIComment on above: Brachial neuritis; Peripheral nerve disorder; Spasm of muscleStart: 11-10-2018 End: 56-23-5264Lxddfet encounter procedureAndrey EarlyFacility:[place] Start: 10-18-2018 End: 77-46-1795Lvwlrzc encounter procedureAndrey Early Work Phone: [facility] HospitalStart: 15-30-4827Bnyqimz encounter procedureLuis NiecyiFacility:[place]Start: 10-03-2018 End: 81-78-1322Tbssfnl encounter procedureFelipe [facility] HospitalStart: 09-20-2018 End: 95-55-5743Mkzqlvq encounter procedureLuis E NiecyiFacility:[facility] HospitalStart: 26-46-8036Kavwlcj encounter procedureFacility:[id number]: 12-91-5919Ilpjqww encounter procedureLUIS E Evens [facility] HospitalStart: 09-06-2018 End: 06-42-4438Jfcspno encounter procedureHistorical [facility] REG Start: 08-31-2018 End: 70-07-2707Skoyrpz encounter procedureHistorical [facility] REG Start: 08-27-2018 End: 86-33-0565Psvdqvk encounter procedureLuis E NiecyiFacility:[facility] HospitalStart: 04-21-1292Nxyobtm encounter procedureFacility:[id number]: 08-15-2018 End: 02-58-2081Hlzvvxtzcm and management of inpatientWABREDNA Schafer [facility]sttart: 04-02-2018 End: 61-29-4215Muwogfa encounter procedureJosophie CalderonFacility:[place]Start: 62-00-0024Nwiiksu encounter procedureMelmalcom Jose ManuelFacility:[facility] Hospitalart: 02-04-2018 End: 27-08-8552BlqriilaviQtoijy Trista Ushanyu [facility] HospitalStart: 96-34-0420Fsnxoen encounter procedureTERBrock [facility] COMM[facility] HOSPITALanuelShore Memorial Hospitaltart: 11-17-2017 End: 83-27-0113GyhlgjdkkaKoeznvmg Rings Work Phone: [facility] Systemtart: 10-20-2017 End: 00-46-9165FmytniwzqcOIABFOFDAKSHA Nevarez [facility] for Childrentart: 19-51-2785Bgrqcss encounter procedureTERMemorial Hospitaltart: 54-73-3349KiiohzbvunPGEKXFNor-Lea General Hospitaltart: 10-09-2017 End: 35-39-6970Bvqmiuq encounter procedureTERAdena [facility] Start: 13-05-5088Rzvsefv encounter procedureTERAdena [facility] Start: 05-13-8737LobmmvjatyNCCLHINor-Lea General Hospitaltart: 03-31-2017 End: 59-81-2239BkrlnxvomfQBIPVLMCHASE Merino [facility] Procedures DateProcedureProcedure DetailPerforming ClinicianStart: 26-08-4693Iqyyo metabolic panel calcium totalBilly Back Work Phone: start: 69-72-9501Rehvh metabolic panel calcium total Damon PROCTOR Work Phone: Start: 55-18-4354Q-reactive proteinKiharshal Segura PA Work Phone: Start: 12-64-3759Hnbbz function panelJadanny Samson SQUARE DANCE CALLER-C Work Phone: Start: 50-42-2948Kogme metabolic panel calcium total Peter D [facility] Centerjoanie DPM Work Phone: Start: 86-74-3534I-reactive proteinPeter D [facility] DPM Work Phone: Start: 28-80-0155QWFOFLVYLJ CHECKPeter D [facility] DPM Work Phone: Start: 28-79-4077Uexrzcchrzxvo metabolic panelBilly Back Work Phone: start: 43-56-2583Fgkpd panelBilly Back Work Phone: start: 50-16-9291LRY FOOT RIGHT W WO CONTRAST Robbin Sánchez DPM Work Phone: Start: 12-61-5128Njz lower extrem oth/thn jt w/o & w/contr matrChristopher Adam Sánchez DPM Work Phone: Start: 56-17-2893Mywdr of urea nitrogen quantitative Robbin Sánchez DPM Work Phone: Start: 70-99-5373WTEM BUN + CREATININEChristopher Adam Sánchez DPM Work Phone: Start: 78-46-3973Prgkukgtga examination foot 2 views Robbin Sánchez DPM Work Phone: Start: 04-04-2025 End: 91-70-5099Jeqke toe minimum 2 viewsSevero Case MD Work Phone: Start: 25-70-8149D-reactive proteinSevero Case MD Work Phone: Start: 04-04-2025 End: 80-30-4612Jsuzduzktlk peptideSevero Case MD Work Phone: Start: 17-65-6863Llsdqkcaowjqu metabolic panelBilly Back Work Phone: start: 71-46-3939Irqim Jignesh Adam MD Work Phone: start: 77-81-3106Sv soft tissue head & neck real time ramesh Adam MD Work Phone: start: 44-13-8461Bjvpe function panelScatrina Forbes MD Work Phone: Start: 86-77-3875Rthon dip stick/tablet rgnt auto w/o microscopySwdomenica Forbes MD Work Phone: Start: 98-93-3062Vjcli Jignesh Adam MD Work Phone: start: 54-98-5218Bhunuzzf Susan Cassidy DPM Work Phone: Start: 67-91-1897Hbz prim src wet mount nfct agtLuis Mclean PA-C Work Phone: Start: 02-52-8682Rgg lower extrem oth/thn jt w/o & w/contr matrChristopher J Bohbobby DPM Work Phone: Start: 66-37-4921Wfrnhkkqqo examination foot 2 views Micky Lauren MD Work Phone: Start: 48-28-2419Rb soft tissue head & neck real time ramesh Adam MD Work Phone: start: 86-91-0194Woxiqcazofkxm metabolic Jignesh Adam MD Work Phone: start: 32-29-0336Punhs Jignesh Adam MD Work Phone: start: 95-08-5663ZB lumbar spine wo conStart: 16-01-0861GO pre/post mri xrayStart: 18-72-4018Cspsjxistib observation [Identifier] in Cervix by Cyto stainMwhz Education Work Phone: Start: 89-19-6090Urkli dip stick/tablet reagent auto microscopyThomas Desi MELENDREZ Work Phone: Start: 82-19-0326Abprj dip stick/tablet reagent auto microscopyThomas Desi MELENDREZ Work Phone: Start: 55-88-2597Kvkipwcwmas panelGregory Forbes MD Work Phone: Start: 24-83-0337Gffol dip stick/tablet rgnt auto w/o microscopyGregory Forbes MD Work Phone: Start: 59-58-4140BSCST-19Wendy Meka Hull PICTURE COPYIST - OUTDOOR ILLUMINATING ENGINEER Work Phone: Start: 79-30-3008VBZHU-Luis E Hartman Work Phone: Start: 38-13-1663Izesw dip stick/tablet rgnt auto w/o microscopyChjorge Rooney Work Phone: Start: 09-16-2020 End: 53-31-8043Gabot count complete auto&auto difrntl wbcChjorge Rooney Work Phone: Start: 86-01-7658Bybmilwyoimll rate rbc automated Rbobin Rooney Work Phone: Start: 88-67-8742Qemgo count complete auto&auto difrntl wbcLuis E Hartman Work Phone: Start: 41-96-0040W-reactive proteinLuis E Hartman Work Phone: Start: 05-99-0215Fvjxdylfeaglu rate rbc automatedLuis E Hartman Work Phone: Start: 04-90-8050Krrlz count complete auto&auto difrntl wbcLuis E Hartman Work Phone: Start: 22-77-5743W-reactive proteinLuis E Hartman Work Phone: Start: 84-71-5410Hmbrlziickvgq rate rbc automatedLuis E Hartman Work Phone: Start: 73-87-4754Vdntzhe total xcpt refractometry urineHeather Forbes Work Phone: Start: 32-79-2498Ukvrq dip stick/tablet rgnt auto w/o microscopyHeather Forbes Work Phone: Start: 98-07-209670 hydroxy includes fractions if performedBilly Back Work Phone: start: 01-89-8698Lnbporhovzfyb metabolic panelBilly Back Work Phone: start: 86-71-0340Zqfwxthqlu glycosylated d5xTfkcj Back Work Phone: start: 98-51-2570Ghvzu panelBilly Back Work Phone: start: 58-84-8107Tkpjhcpkszy direct measurement ldl cholesterolBilly Back Work Phone: start: 51-55-0458EFMMCXZ FASTING?Felipe Back Work Phone: start: 63-54-8036A-reactive proteinNora Longthorne Work Phone: Start: 46-27-0071Xdpkunpljo glycosylated d1vMocxvhjbzc Mónica Sawyeri PICTURE COPYIST - OUTDOOR ILLUMINATING ENGINEER Work Phone: Start: 90-72-5627GFEUCRO B12 & FOLATEJacsanta Harmonianharinder PICTURE COPYIST - OUTDOOR ILLUMINATING ENGINEER Work Phone: Start: 02-40-5034Cfpmj spine cervical 4 or 5 viewsNora Longthorne Work Phone: Start: 31-22-5496Ughbz count complete auto&auto difrntl wbcNora Longthorne PICTURE COPYIST - OUTDOOR ILLUMINATING ENGINEER Work Phone: Start: 11-72-7179P-reactive proteinNora Longthorne PICTURE COPYIST - OUTDOOR ILLUMINATING ENGINEER Work Phone: Start: 88-68-2755Nrnleog serum plasma/whole blood Heather Forbes Work Phone: Start: 12-35-3772Rwgmz of magnesiumHeather Forbes Work Phone: Start: 05-26-4139Lrhxk of phosphorus inorganicSwdomenica Forbes Work Phone: Start: 59-22-3548Adohi of urea nitrogen quantitative Heatherwoody Forbes Work Phone: Start: 31-40-7809Kepjt count hemoglobinSwdomenica Forbes Work Phone: Start: 29-29-1396Gieqvbo totalSwapwoody Forbes Work Phone: Start: 61-06-3800Tzchfpaslcd panelSwapna Andrei Work Phone: Start: 51-19-3425Tvblkfw total xcpt refractometry urineSwdomenica Forbes Work Phone: Start: 10-56-5966Jeixxdmfbe microscopic onlySwdomenica Forbes Work Phone: Start: 99-80-9749Gpqbn dip stick/tablet rgnt auto w/o microscopySwdomenica Forbes Work Phone: Start: 12-25-5162K-reactive proteinLuis E Hartman Work Phone: Start: 40-32-1834Qyyylainzubfc rate rbc automatedLuis E Hartman Work Phone: Start: 36-62-5176FTK of cervical spine without contrastExternal TranscribedStart: 10-03-2018 End: 35-90-8151Tyceaqdwbix examination of blood, cultureLuis JaureguiComment on above:Performed By: #### BC #### Unless otherwise noted, all testing performed by [place] [id number] CLIA: [id number] Dry Cleaning Counter Clerk: Harshad Solano M.D.Start: 09-06-2018 End: 86-22-1900BCXS (OUTSIDE)Historical ProviderStart: 08-31-2018 End: 63-06-7193MHRZ (OUTSIDE)Historical ProviderStart: 90-76-4952JO CONSULT TO HOME CARE NEEDSWABRENDA MARYtart: 58-38-7122Vrpfa of magnesiumWASEEDIN CASASANStart: 53-00-7861Gsocm metabolic panel calcium totalWASEEM YESSENIAANStart: 46-18-4216Mqmqv count complete auto&auto difrntl wbcWASEEM YESSENIAtart: 45-56-1445Htgwhhliyvxey (pct)JV MARYrt: 85-91-1029JLSJFGHBG PATIENTWASEEM YESSENIAtart: 08-25-2018 PULSE OXIMETRY, CONTINUOUSWASEEM YESSENIAANStart: 46-46-7344TTWMBO PICC LINEWASEEM YESSENIAANStart: 45-11-8318YBDAYBHKYFCQI NURSING CARE ORDER (SPECIFY)JV MARYrt: 00-86-5911WDG ORDER FOR WALKER OPWASEEM YESSENIAANStart: 31-93-2763DEHAI OXIMETRY, CONTINUOUSWASEEM YESSENIAANStart: 50-64-3177ASMRTK PHYSICIAN (SPECIFY)JV APPLE Start: 88-99-8304ZSCZCMZ COMMUNICATIONWASEEM YESSENIAtart: 07-24-8510NNKBP CANNULA OXYGENWASEEM YESSENIAtart: 24-20-4869YUAFCVHSL SPIROMETRY RTWASEEM tart: 45-28-9135MHWPKVNO OXYGEN THERAPY PROTOCOLWA YESSENIArt: 73-79-2924DWQOX OXIMETRY, CONTINUOUSWASEEM YESSENIAANStart: 58-67-8516Mwrxw of magnesiumJV APPLE Start: 59-67-1373Dgzyp metabolic panel calcium totalWASEEM USMANtart: 08-25-2018 Blood count complete auto&auto difrntl wbcWASEEM YESSENIAANStart: 42-64-9008BXAJI OXIMETRY, CONTINUOUSWASEEM YESSENIAANStart: 60-21-0758PSATO OXIMETRY, CONTINUOUSWASEEM KHANStart: 55-78-9328XFZCV OXIMETRY, CONTINUOUSWASEEM KHANStart: 41-26-9857QUDR GENERALWASEEM YESSENIAANStart: 22-92-5463ST EVAL AND TREATWASEEM EYSSENIAANStart: 15-89-2934LY EVAL AND TREATWASEEM YESSENIAANStart: 63-57-6206SWCTC OXIMETRY, CONTINUOUSWASEEM YESSENIAANStart: 86-56-1450MMPWU OXIMETRY, CONTINUOUSWABRENDA APPLE Start: 59-56-2401YZWXUGJSE SPIROMETRY RTWESTERN ARIZONA REGIONAL MEDICAL CENTEREDIN CASASANStart: 61-53-0225KCMXOJSP OXYGEN THERAPY PROTOCOLINSPIRE SPECIALTY HOSPITAL – [facility] USMANtart: 85-73-8902GUBPD OXIMETRY, CONTINUOUS JV YESSENIAANStart: 83-14-1362LMGI FAST CULTURE WITH SMEARINTEGRIS BAPTIST [facility]ENTER [facility] [place] YESSENIAtart: 32-29-4001MUVZMY STAINEDIN CASAStart: 44-57-1591UMSEUE CULTURENHBRENDA APPLE Start: 97-93-4301MUKZZL CULTUREWESTERN ARIZONA REGIONAL MEDICAL CENTEREDIN CASASANStart: 14-53-2794WOCHY OXIMETRY, CONTINUOUSWAINTEGRIS BAPTIST MEDICAL CENTER [facility] [place] YESSENIAANStart: 08-91-7675Pwtivwmjrkrnu (pct)JV KHtart: 76-59-4580ARPNG OXIMETRY, CONTINUOUSWAINTEGRIS BAPTIST MEDICAL CENTER [facility] [place] YESSENIAANStart: 19-72-1237WCZBG CAREINSPIRE SPECIALTY HOSPITAL – [place] [place] USMANtart: 79-88-9037DAOJTODOOTHXG NURSING CARE ORDER (SPECIFY)JV APPLE Start: 94-71-7910ATSHKLTC PATIENTWAINTEGRIS BAPTIST MEDICAL CENTER [facility] [place] YESSENIAtart: 54-16-3834KZBNDN FOR SURGICAL PROCEDURESINTEGRIS B[facility] [place] YESSENIArt: 16-49-9691WTIKYARGQ AND AEROBIC CULTURENHBRENDA APPLE Start: 12-24-7294JTPYS OXIMETRY, CONTINUOUSWAINTEGRIS BAPTIST [facility] [place] YESSENIAtart: 24-79-2948JEEHH OXIMETRY, CONTINUOUSWASE YESSENIAANStart: 15-20-9781VLJXY OXIMETRY, CONTINUOUSWASEEM YESSENIAANStart: 65-76-0606YI CONSULT TO IV TEAMINTEGRIS [facility] [place] YESSENIAtart: 78-19-5404IJYAUNJWC SPIROMETRY RTINSPIRE [facility] YESSENIAtart: 66-83-3231MEAYQNZJ OXYGEN THERAPY PROTOCOLINSPIRE SPECIALTY HOSPITAL [facility] USMANtart: 32-94-0087XVWKS OXIMETRY, CONTINUOUSWASEEM YESSENIAANStart: 08-23-2018 Blood count complete auto&auto difrntl wbcCRITTENTON BEHAVIORAL HEALTHrt: 08-23-2018 Comprehensive metabolic panelFREEMAN HEART INSTITUTEtart: 74-07-8489Rnuwdfwgvzm platelet assayWAINTEGRIS BAP[facility] [place] YESSENIAtart: 80-45-6661OIPFD OXIMETRY, CONTINUOUSWAINTEGRIS BAPTIST [facility] [place] YESSENIAANStart: 68-47-4534BSKUL OXIMETRY, CONTINUOUSWASEEM KHANStart: 72-34-5938APJFD OXIMETRY, CONTINUOUSWASEEM KHANStart: 22-68-3283BMXNS OXIMETRY, CONTINUOUSWASEEM APPLE Start: 76-83-5907PDJWX OXIMETRY, CONTINUOUSWASEEM KHANStart: 10-53-3806JLDJWSEZW SPIROMETRY RTWASEEM YESSENIAANStart: 14-28-0378CNYNPKXU OXYGEN THERAPY PROTOCOLWASEEM YESSENIAANStart: 94-95-1922ZYNTT OXIMETRY, CONTINUOUSWASEEM KHANStart: 08-22-2018 Assay of magnesiumWASEEM YESSENIAANStart: 54-43-3395Lyfan count complete auto&auto difrntl wbcWASEEM YESSENIAANStart: 27-90-8260TZSZYCOLBB, TROUGHWASEEM YESSENIAANStart: 21-38-8830HXAWL OXIMETRY, CONTINUOUSWASEEM KHANStart: 46-67-1159SVWTQ OXIMETRY, CONTINUOUSWASEEM KHANStart: 33-06-8375XGIER OXIMETRY, CONTINUOUSWASEEM APPLE Start: 82-26-2110Ljznuymknglgo (pct)JVMARISABEL MARYtart: 60-51-5234GJSVO OXIMETRY, CONTINUOUSWASEEM YESSENIAANStart: 43-89-9161GUCAZ OXIMETRY, CONTINUOUSWASEEM APPLE Start: 23-71-9169Xqt lower extrem oth/thn jt w/o & w/contr matrWASEEDIN MARYtart: 22-45-2912ISJJQCVSU SPIROMETRY RTWASEEM USMANtart: 34-42-9746OXKULQUW OXYGEN THERAPY PROTOCOLWASEEM YESSENIAANStart: 82-67-7069IPTUK OXIMETRY, CONTINUOUSWASEEM KHANStart: 98-66-9303Oinod of magnesiumWASEEM USMANtart: 38-67-5878Opnuu count complete auto&auto difrntl wbcWASEEM USMANtart: 29-15-8420UEAAF OXIMETRY, CONTINUOUSWASEEM KHANStart: 66-23-2556JAZSG OXIMETRY, CONTINUOUSWASEEM APPLE Start: 97-31-7269PTQUL OXIMETRY, CONTINUOUSWASEEM KHANStart: 08-20-2018 MISCELLANEOUS NURSING CARE ORDER (SPECIFY)JV USMANtart: 80-84-6658Hqypl foot complete minimum 3 viewsEDIN MARYtart: 72-85-6662RXUGT OXIMETRY, CONTINUOUS JV USMANtart: 71-53-3685Z-reactive proteinINTEGRIS BAPTIST [facility] [place] USMANrt: 08-20-2018 SEDIMENTATION RATEBRENDA MARYtart: 48-78-6929MEFAL OXIMETRY, CONTINUOUSWABRENDA MARYtart: 62-37-5879NMVYJXNII SPIROMETRY RTWESTERN ARIZONA REGIONAL MEDICAL CENTEREDIN MARYtart: 91-69-1339VULPRLJC OXYGEN THERAPY PROTOCOLWESTERN ARIZONA REGIONAL MEDICAL CENTEREDIN MARYtart: 08-95-8176TWQDZ OXIMETRY, CONTINUOUS JV YESSENIAANStart: 33-56-5678Bkxmm of magnesiumJV MARYtart: 46-62-5431Vzfqm count complete auto&auto difrntl wbcEDIN MARYrt: 17-77-1365GMPHV OXIMETRY, CONTINUOUSWABRENDA MARYtart: 41-45-1705QRVSH OXIMETRY, CONTINUOUSJV APPLE Start: 53-47-3577MHRJI OXIMETRY, CONTINUOUSWAEDIN MARYtart: 28-75-2698EZ CONSULT TO ORTHOPEDIC SURGERYINTEGRIS BAP[facility] [place] USMANrt: 01-49-0325Msmhjqpzydbuz (pct) JVMARISABEL MARYrt: 40-58-7131ANLQS OXIMETRY, CONTINUOUSNHBRENDA MARYtart: 72-48-5835Qan spinal canal cervical w/o & w/contr matrlJV MARYtart: 68-72-1639For spinal canal lumbar w/o & w/contr matrlNHEM USMANtart: 48-08-4385Fuc spinal canal thoracic w/o & w/contr matrlWAEM YESSENIAANStart: 12-48-6110THKCY OXIMETRY, CONTINUOUSWABRENDA MARYtart: 43-39-6087YHUICQVZH SPIROMETRY RTWESTERN ARIZONA REGIONAL MEDICAL CENTEREDIN MARYtart: 08-89-5898IHZUDSZZ OXYGEN THERAPY PROTOCOLWESTERN ARIZONA REGIONAL MEDICAL CENTEREDIN MARYrt: 19-87-4461JDFHP OXIMETRY, CONTINUOUSWAEM USMANtart: 76-59-6635YC CONSULT TO IV TEAMINSP[facility] [place] USMANtart: 58-75-4700Yzqoi of magnesiumJV APPLE Start: 59-45-9753Allyu count complete auto&auto difrntl wbcWABRENDA MARYtart: 94-81-0575EESST OXIMETRY, CONTINUOUSWASEEDIN MARYtart: 87-43-6319BPPSM OXIMETRY, CONTINUOUSWASEEM USMANtart: 67-06-3106HTGSK OXIMETRY, CONTINUOUSWABRENDA APPLE Start: 17-79-8666XYAFG OXIMETRY, CONTINUOUSWASEEM YESSENIAANStart: 15-49-4644NDXTA OXIMETRY, CONTINUOUSWASEEM USMANtart: 49-72-6902WIWSUAJUY MONITORINGJV APPLE Start: 70-84-0540MCPEYHUXW SPIROMETRY RTNHBRENDA MARYtart: 32-11-0343KJSQISRB OXYGEN THERAPY PROTOCOLWESTERN ARIZONA REGIONAL MEDICAL CENTEREDIN MARYtart: 89-51-4624RUXVR OXIMETRY, CONTINUOUS JV YESSENIAANStart: 47-62-3560Fydep of magnesiumWABRENDA MARYtart: 69-06-2756Psiap count complete auto&auto difrntl wbcNHBRENDA MARYtart: 28-15-1357HWRGQENSMU, TROUGHWABRENDA MARYtart: 79-86-1969LYVAW OXIMETRY, CONTINUOUSWASEEDIN MARYtart: 25-11-1568FULSL OXIMETRY, CONTINUOUSWASEEDIN MARYtart: 92-29-9568QSRJE OXIMETRY, CONTINUOUSWASEEM USMANtart: 66-55-6540Zonmwkkndiyuj (pct)JVMARISABEL MARYrt: 23-91-4578FBUAV OXIMETRY, CONTINUOUSEDIN MARYtart: 16-14-7246LVSVINR BLOOD #1 JVMARISABEL MARYtart: 10-59-4494GELMU OXIMETRY, CONTINUOUSWASEEM YESSENIAANStart: 16-99-0642Xewc tthrc r-t 2d w/wom-mode compl spec&colr dWHONORHEALTH SCOTTSDALE OSBORN MEDICAL CENTEREDIN MARYtart: 49-26-5868EOXAVVSUA SPIROMETRY RTNHBRENDA MARYtart: 80-16-9728JFDJLTOG OXYGEN THERAPY PROTOCOLWESTERN ARIZONA REGIONAL MEDICAL CENTEREDIN MARYtart: 72-36-2275RBYPG OXIMETRY, CONTINUOUSWASEEM YESSENIAANStart: 01-36-2795Yrdnj of magnesiumNHBRENDA MARYtart: 10-17-2814Mxrme count complete auto&auto difrntl wbcNHBRENDA MARYtart: 13-37-9870P-reactive protein JV USMANtart: 60-67-4242IRNMKOBAYSACP RATEWASEEM USMANtart: 72-34-5767WTSYC OXIMETRY, CONTINUOUSWASEEM YESSENIAANStart: 56-12-8175Knfh tthrc r-t 2d w/wom-mode compl spec&colr dWASEEDIN MARYtart: 73-84-0218VETCF OXIMETRY, CONTINUOUSWASEEM YESSENIAANStart: 79-94-3643ACXIF OXIMETRY, CONTINUOUSWASEEM KHANStart: 24-18-1640SWEPX OXIMETRY, CONTINUOUSWASEEM YESSENIAANStart: 12-54-5798UIOFL OXIMETRY, CONTINUOUS JV YESSENIAANStart: 27-92-7836Yur-scan xtr veins complete bilateral studyWA YESSENIAtart: 12-50-3351Pdqx tthrc r-t 2d w/wom-mode compl spec&colr dWMITCHEL APPLE Start: 00-12-8047Ot head/brain w/o contrast materialWAINTEGRIS BAP[facility]IST [facility] [place] YESSENIAtart: 08-16-2018 Radiologic exam chest 2 viewsINTEGRIS [facility] [place] YESSENIArt: 06-59-5656YNNVELFDM SPIROMETRY RT JV YESSENIArt: 29-20-6170DIPZSVQU OXYGEN THERAPY PROTOCOL YESSENIArt: 43-65-3619XZYIT OXIMETRY, CONTINUOUSWASEEM YESSENIAANStart: 67-02-2661FTDKFVU ISOLATIONWAINTEGRIS BAPTIST MED[facility] [place] USMANtart: 57-71-2947Ysbfp of lactateWASE YESSENIAtart: 59-91-0801QAKHKJT, IONIZEDWASEEM YESSENIAtart: 01-29-4914XO CONSULT TO IV TEAM JV YESSENIArt: 63-21-4825Czqig of magnesiumWASEEM YESSENIAtart: 63-95-3373Eznpw count complete auto&auto difrntl wbcINTEGRIS BAPTIST [facility] [place] rt: 81-83-6273Ezxlakgvumb time JV USMANtart: 15-09-8391XZUFS OXIMETRY, CONTINUOUSWASEEM YESSENIAANStart: 19-76-2254MHHNN WEIGHTSWAINTEGRIS BAPTIST [facility] [place] YESSENIAANStart: 34-76-9432HLDYD OXIMETRY, CONTINUOUS JV YESSENIAANStart: 48-45-5520UPN 12-LEADWACRITTENTON BEHAVIORAL HEALTHrt: 70-34-1465Lsqfz of lactateWACRITTENTON BEHAVIORAL HEALTHrt: 32-49-9518Aopcvnng I.cardiac mass concINTEGRIS BAPTIST MED[facility] [place] rt: 73-14-2949RRKFT OXIMETRY, CONTINUOUSELLETT MEMORIAL HOSPITALrt: 29-50-4245CQVSMJIZ RT PROTOCOLCRITTENTON BEHAVIORAL HEALTHrt: 76-71-4658TAGVAOKYVF ANTIGEN, URINEINTEGRIS BAPTIST [facility] [place] rt: 64-95-3121NQJFX PNEUMONIAE ANTIGENINTEGRIS BAPTIST [facility]ICAL [facility] [place] rt: 98-34-4097AB CONSULT TO NEUROLOGYCRITTENTON BEHAVIORAL HEALTHrt: 55-25-1450Tzzda of lactateINTEGRIS BAPTIST [facility] [place] rt: 87-72-8531Pnqscai bacterial blood aerobic w/id isolates rt: 37-29-5002TCQVZCQ BLOOD #1 rt: 62-56-9830KLFYOINFHS PNEUMONIAE ANTIBODY, IGMELLETT MEMORIAL HOSPITALrt: 48-08-7715Eqaopbdkesjcl (pct)JV rt: 21-05-3280Wzelepqn I.cardiac mass concrt: 59-32-5933QRPQLLLC PRIVILEGES WITH ASSISTANCECRITTENTON BEHAVIORAL HEALTHrt: 83-55-7299OLAUQIHRP MONITORINGCRITTENTON BEHAVIORAL HEALTHrt: 55-65-1371Joy bact xcpt urine blood/stool aerobic isolOZARKS COMMUNITY HOSPITAL Start: 75-59-8666UNNZPBKTC DEEP BREATHING AND COUGHING rt: 78-31-6198FITO CODEWACRITTENTON BEHAVIORAL HEALTHrt: 59-01-5255TSSHEFRSZ SPIROMETRY RTINTEGRIS BAP[facility]IST [facility] [place] rt: 75-61-9384VNFGXJGT OXYGEN THERAPY PROTOCOLCRITTENTON BEHAVIORAL HEALTHrt: 20-82-8321AKLGCS AND OUTPUT rt: 84-23-1616AM CONSULT TO INFECTIOUS DISEASESMINERAL AREA REGIONAL MEDICAL CENTERrt: 77-42-6453Fgyzlyzwhsh observation Gram stain Nom (Unsp spec)JV KHrt: 07-81-7636URGZJE PHYSICIAN (SPECIFY)JVMERCY HOSPITAL SPRINGFIELDrt: 46-16-0689HXKTPXTI TO DOSE VANCOMYCINCRITTENTON BEHAVIORAL HEALTHrt: 30-02-0998MRRTS INTERMITTENT PNEUMATIC COMPRESSION DEVICEWASEEM A[facility] LINCOLNtart: 91-49-0340HFSHK OXIMETRY, CONTINUOUSWASEEM ANStart: 41-36-4840WEUJU SIGNSWASEEM [facility] LINCOLNtart: 90-70-9606TQOOBIJ STATUS (DIRECT)JV MARYtart: 17-53-0585GggcnbxhummUamve Back Work Phone: start: 26-06-7026Echuhyisjld observation [Identifier] in Cervix by Cyto Armani Casas Plan of Treatment DateCare ActivityDetailAuthorStart: 41-61-8025Jyduk panelLipidsCentra Virginia Baptist HospitalStart: 92-42-1020Lyybd panelLewisGale Hospital MontgomeryStart: 25-49-0804Rkomiexa Vaccine (1 of 2)Shingles Vaccine (1 of 2)[facility] [place] Start: 66-13-7207Tlwjr panelLipBallad HealthStart: 12-10-2027 Screening for malignant neoplasm of colonBon [facility] HospitalStart: 98-43-5682Stqcf panelLipidsNORTON COMMUNITY HOSPITALStart: 43-34-7980Frbwraxqy for malignant neoplasm of breastBreast cancer screenBon [facility] Grata Start: 50-01-3650ULK test (Diabetes, CKD 3-4, OR last GFR 15-59)GFR test (Diabetes, CKD 3-4, OR last GFR 15-59)[facility] HospitalStart: 07-21-2026 GFR test (Diabetes, CKD 3-4, OR last GFR 15-59)GFR test (Diabetes, CKD 3-4, OR last GFR 15-59)[facility] [place] rouge.comPioneer Community Hospital of PatrickStart: 63-99-3430VUZ test (Diabetes, CKD 3-4, OR last GFR 15-59)GFR test (Diabetes, CKD 3-4, OR last GFR 15-59)[facility] HospitalStart: 05-11-8985MWV test (Diabetes, CKD 3-4, OR last GFR 15-59)GFR test (Diabetes, CKD 3-4, OR last GFR 15-59)[facility] [place] Start: 91-21-8458Dzdfg panelSumma Health Akron Campus HealthStart: 53-81-5570OBT test (Diabetes, CKD 3-4, OR last GFR 15-59)GFR test (Diabetes, CKD 3-4, OR last GFR 15-59)[facility] HospitalStart: 58-68-7937Wafvluujyo A1c pxfscocgsucA6T test (Diabetic or Prediabetic)Bon [facility] HospitalStart: 62-40-8105XTV test (Diabetes, CKD 3-4, OR last GFR 15-59)GFR test (Diabetes, CKD 3-4, OR last GFR 15-59)Bon [facility] HospitalStart: 80-71-3525Hbjoroekhn MonitoringDepression MonitoringBon [facility] HospitalStart: 56-73-2736GJK test (Diabetes, CKD 3-4, OR last GFR 15-59)GFR test (Diabetes, CKD 3-4, OR last GFR 15-59)[facility] Hospitalart: 99-56-0985Nyoqwwvkbx A1c okaauytbmxyP3M test (Diabetic or Prediabetic)[facility] HospitalStart: 10-12-2025 End: 76-45-4056Anwwmrp encounter /08/2026 10:30 AM EST Office Visit [facility] [address] [place] [address] [place] [address] Dimas Adair MD [address] [place] [address] [facility], Nose and Throat PhysiciansStart: 10-11-2025 End: 58-64-9088YH Head and neck soft tissueUS Soft Tissue Neck Imaging Routine Thyroid nodule Expected: 10/11/2025, Expires: 10/11/2026[facility] Work Phone: Comment on above:Expected: 10/11/2025, Expires: 10/11/2026Start: 08-29-2025 End: 04-01-6082Fwqqjao encounter ipagmnmrr97/25/2025 11:45 AM EST Office Visit [facility] [address] [place] [address] Lynn Block MD [address] [place] [address], [place] [address] TERRY Gutierrez [facility] Start: 08-23-2025 End: 71-45-3611Aykdguu encounter dsgmlmxif27/19/2025 1:00 PM EST Office Visit [facility] [address] [place] [phone] Jennie Van, PICTURE COPYIST-OUTDOOR ILLUMINATING ENGINEER [address] [place] [address] SHANNANRubén MccarthyMarathon NeurologyStart: 08-03-2025 End: 61-96-4232Blwykij encounter zibrzvxrt86/30/2025 11:00 AM EDT Office Visit [address], [id number] Felipe Adam MD [address] [place] [address] Return in about 3 months (around 07/19/2025).[facility] on above:Return in about 3 months (around 07/19/2025).Start: 07-27-2025 End: 81-48-6116Vswlaeq encounter /23/2025 11:00 AM EDT Office Visit [address], [id number] Felipe Adam MD [address] [place] [address], [place] [address] Return in about 3 months (around 07/19/2025).[facility] on above:Return in about 3 months (around 07/19/2025).Start: 47-09-0969PUKNF-19 Vaccine ( season)COVID-19 Vaccine ( season)Sid GasparKindred Hospital LimaStart: 05-31-2025 End: 08-65-5546TD Cervical spine 4 or 5 ViewsXR cervical spine complete 4 to 5 views Imaging Routine Cervical paraspinal muscle spasm Expected: 05/31/2025, Expires: 05/24/2026[facility] Work Phone: Comment on above:Expected: 05/31/2025, Expires: 05/24/2026Start: 97-34-9615Uexad panelLipid [facility], KYStart: 05-24-2025 End: 71-60-9220Auveqks encounter mzsgihspn24/20/2025 11:30 AM EDT Office Visit NOMRubén [facility] [address] [place] [phone] Jennie Van [facility]NF[facility] [address] [facility] [place] [address] NOMRubén Gutierrez NeurologyStart: 05-17-2025 End: 13-26-6930Lndrbux encounter nejalggbn93/13/2025 1:20 PM EDT Office Visit [facility] [address] [place] [address] Trace Casas MD [address] [facility] [address] [address] [facility] NEURStart: 05-15-2025 End: 22-85-1824Gutlxss encounter bblbokmtf96/11/2025 1:15 PM EDT Office Visit [address] [address] Felipe Adam MD [address] [place] [address] Return in about 6 months (around 05/15/2025).[facility] CenterCommckenzie memorial hospital on above:Return in about 6 months (around 05/15/2025).Start: 41-60-3229HEN test (Diabetes, CKD 3-4, OR last GFR 15-59)GFR test (Diabetes, CKD 3-4, OR last GFR 15-59)[facility] HEALTHStart: 93-97-1866Qvyarqavb vaccinationCentra Virginia Baptist HospitalStart: 05-02-2025 Hemoglobin A1c hpzpbifdpkmW2S test (Diabetic or Prediabetic)[facility] Centerart: 05-02-2025 End: 25-72-9020Ydlqeir encounter vsfftmluf46/29/2025 2:00 PM EDT Office Visit [facility] B [address] [place] [phone] Fozia Meng, SQUARE DANCE CALLER [address], [address] [place] [phone] [facility]UR BStart: 05-01-2025 End: 01-95-6689Jymvteb encounter jtexpxtps85/28/2025 4:00 PM EDT Office Visit [facility] [address] [place] [address] Robbin Sánchez, DPM [address] [place] [address] NOMS WWW PODIATRYStart: 04-20-2025 End: 18-89-8620Ajesdca encounter hikcyguis52/17/2025 12:45 PM EDT Office Visit [facility] [address] [place] [phone] Robbin Sánchez, DPM [address] [place] [address] ArrivedNOMS WWW PODIATRYComment on above:ArrivedStart: 04-06-2025 End: 54-80-4137Szpsumq encounter /03/2025 4:30 PM EDT Office Visit [facility] [address] [place] [address] Robbin Sánchez, DPM [address] [place] [address] ArrivedNOMS [facility] PODIATRYComment on above:ArrivedStart: 04-06-2025 End: 67-60-6414Dzzmzxqncx [Mass/volume] in Serum or PlasmaCreatinine, Serum Lab Routine Right foot pain Expected: 04/06/2025 (Approximate), Expires: 04/06/2026 [facility] HealthcareComment on above:Expected: 04/06/2025 (Approximate), Expires: 04/06/2026Start: 04-06-2025 End: 27-62-9885NE Foot - right WO and W contrast IVMR foot right w and wo IV contrast Imaging STAT Right foot pain Expected: 04/06/2025, Expires: 04/06/2026 [facility] Work Phone: comment on above:Expected: 04/06/2025, Expires: 04/06/2026Start: 03-14-2025 End: 08-12-7223Yhdxvgx encounter procedureNOMS [facility]UR BStart: 02-13-2025 End: 93-48-3098Tkcjjxf encounter ynosbtota86/12/2025 1:00 PM EDT Office Visit [facility] [address] [address] Trace Casas MD [address] [facility] [address] [place] [address] [facility] NEURStart: 41-71-4959Evrigkgowr MonitoringDepression MonitoringBON CLEVELAND CLINIC MEDINA HOSPITALStart: 11-15-2024 End: 85-80-7294Vtyrjbq encounter fxuicqjvo76/11/2025 2:45 PM EST Office Visit [facility] [address] [place] [address] Felipe Adam MD [address] [place] [address] 6 [facility] CenterComment on above:6 moStart: 11-14-2024 End: 96-75-3949Abgujab encounter procedureNOMS [facility] NEURComment on above:Arrived Start: 11-11-2024 End: 03-33-7290Ouyirpu encounter ylfuzfvxo50/07/2025 1:00 PM EST Office Visit [facility] [address] [place] [address] Felipe Adam MD [address] [place] [address] 6 [facility] CenterComment on above:6 moStart: 51-56-2345Snzlidbmw for malignant neoplasm of cervixBON SECOURS UNIVERSITY HOSPITALS HEALTH SYSTEMStart: 09-14-2024 End: 10-40-8812Mtytlgi encounter ddqteptet23/11/2024 11:20 AM EST Office Visit [facility] [address] [facility] [address] [place] [address] Fozia Meng, SQUARE DANCE CALLER [address] [phone] ArrivedNOMS [facility] NEURComment on above: ArrivedStart: 12-92-3982IOqF/Tdap/Td vaccine (2 - Td or Tdap)DTaP/Tdap/Td vaccine (2 - Td or Tdap)[facility] HospitalStart: 97-97-2143INtM/Tdap/Td vaccine (2 - Td)DTaP/Tdap/Td vaccine (2 - Td)[facility] KYStart: 12-64-8456Jkbmajl vaccinationOhioHealthStart: 09-05-2024 End: 09-64-7136Hiresoa encounter ksqpfbydo05/02/2024 1:00 PM EST Office Visit [facility] [address] [facility] [address] [place] [phone] Trace Casas MD [address] [address] [facility] NEURStart: 08-18-2024 End: 10-66-5635Txaqjuj encounter sjyfdqsnl58/14/2024 1:30 PM EST Office Visit [facility] [address] [place] [address] Luis Mclean, PACharitoC [address] [place], [place] [id number] 1 yr med chkMGlenbeigh Hospital UrologyComment on above:1 yr med chkStart: 08-02-2024 End: 74-54-2481Ojdlrxl encounter rzjjlufeh29/29/2024 10:45 AM EDT Office Visit [facility] [address] [place] [phone] Cheryl Miles DO [address] [place] [address] NOMS WNZ NEUROStart: 07-11-2024 End: 73-86-1437Afbzczngfnne consultation with iiuzaea8307/11/2024 11:30 AM EDT Telemedicine [facility] [address] [place] [address], [place] [address] Janel Allen SQUARE DANCE CALLER [address] [place] [address] [facility] NE[facility]O 210Start: 06-10-2024 End: 53-51-9845Vclhllg encounter wzzsnzuhe06/06/2024 10:20 AM EDT Office Visit [facility] NE[facility] [address] [facility] [address] [place] [phone] Trace Casas MD [address] [place] [address] ArrivedNOMS SWS NEURComment on above: ArrivedStart: 46-36-8763FIZXP-19 Vaccine ( season)COVID-19 Vaccine ( season)[facility]art: 92-54-7762VRIOL-19 Vaccine ( season)COVID-19 Vaccine ( season)[facility]Start: 06-05-2024 Influenza vaccinationInfluenza Vaccine (#1)[facility]Start: 77-08-4175Brejtzsrg for malignant neoplasm of colonBon [facility]art: 94-73-5578EHW test (Diabetes, CKD 3-4, OR last GFR 15-59)GFR test (Diabetes, CKD 3-4, OR last GFR 15-59)[facility]art: 26-43-4891Kenojvum screenDiabetes screen [facility]art: 05-12-2024 End: 48-57-6934Lytfiba encounter stwdmtyxk96/08/2024 11:00 AM EDT Office Visit [facility] Part of [address] [address] Lina Echols MD [facility] [place] [address] BUCK (obstructive sleep apnea)[facility] Part of [facility] LivingComment on above: BUCK (obstructive sleep apnea)Start: 77-38-3073Jcgyv panelLipid [facility], [place]Start: 44-15-1723Fxpdd screenLipid [facility], [place] Start: 26-37-5246Htmimwoni vaccinationFlu vaccine (#1)[facility] Start: 08-24-2615Tsygpanxne MonitoringDepression MonitoringBON [facility] Centerart: 28-68-8103QBT test (Diabetes, CKD 3-4, OR last GFR 15-59)GFR test (Diabetes, CKD 3-4, OR last GFR 15-59)[facility]art: 02-06-2024 Hemoglobin A1c yqqrkmuibksX6J test (Diabetic or Prediabetic)[facility]: 08-13-2023 End: 49-81-6841Nihmltw encounter procedureOhiohealth [facility]in [facility] Andre UrologyStart: 06-22-2023 End: 76-47-4716Ihsfpgn encounter bkjxjiwbj93/18/2023 11:15 AM EDT Office Visit [facility] [address] [place], [place] Felipe Adam MD [address] [place] [address] [facility]: 06-05-2023 Influenza vaccinationSequential Influenza Vaccine (Season Ended)[facility]: 35-33-8459Xipkkxcej vaccinationBON [facility]: 04-14-2023 End: 99-06-8518Kncorwf encounter ptkhcxnyf55/11/2023 Office Visit Family Medicine Felipe Adam MD [address] [place] [address] [facility]: 89-54-6170Wllcylsbjp A1c rmwxjbvfvvvG8D test (Diabetic or Prediabetic)[facility]: 74-11-8103Xwuobezstd MonitoringDepression MonitoringBON [facility] Start: 60-98-5446Qfvdgar and physical examination, annual for health maintenance Wellness VisitOhioHealthStart: 12-25-2022 End: 99-61-2961Xqfwmis encounter zurxmiyzq71/23/2023 Office Visit Infectious Diseases Dav Hartman MD [address] [address] [facility]Start: 41-96-0922Inygilkd screenDiabetes [facility]art: 08-07-2022 End: 52-74-2186Puliuti encounter iwnerraji16/03/2022 Office Visit Urology Luis Mclean PA-C [address] [place] [address] [facility] UrologyStart: 07-15-2022 End: 28-91-1433Imdejhn evaluation of patient and yqrjee1607/15/2022 Nurse Only [facility] MedicineMer[facility] CenterwichStart: 07-09-2022 End: 82-03-5111Wbzwhdo encounter tlakjvcby62/05/2022 Appointment IP Unit Samantha Lino RD, LD [facility] Diet and NutritionStart: 06-05-2022 Influenza vaccinationSum[facility] HealthStart: 52-80-1686Ofnskjbrqw measurementSumma Health [facility] Campus HealthStart: 43-16-3193Lfggeknsu [Moles/volume] in Serum or PlasmaPotassiumSumma Health Akron Campus HealthStart: 23-82-9232Vextddvbf monitoringPotassium monitoringSumma Health [facility] Campus Health Start: 22-65-0315Cgehffrstt measurementCreatinine monitoringOhiohealth [facility] Work Phone: start: 30-60-4777Tuijnregw monitoringPotassium monitoringOhiohealth [facility] Hospital Work Phone: start: 54-35-6453Bcvvspsbx vaccinationFlu vaccine (#1) [facility] SYSTEMStart: 26-44-6634Psulbbrfv for malignant neoplasm of cervixOhioHealthStart: 02-05-2022 End: 32-63-0404Vgkrqyn encounter avmvwgaue48/04/2022 Appointment Physical Therapy Christel Donohue PTMWHZ Physical TherapyStart: 02-03-2022 End: 02-58-9421Hxzqlgz encounter procedureMWHZ Physical TherapyStart: 01-30-2022 End: 24-85-3864Xothrwn encounter procedureDayton [facility] UrologyStart: 01-29-2022 End: 57-01-1517Rwmphgw encounter /27/2022 Appointment Physical Therapy Beverly Rangel PTAMWHZ Physical TherapyStart: 01-27-2022 End: 70-97-1201Xglvadl encounter caytocjxj41/25/2022 Appointment Physical Therapy Christel Donohue PTMWHZ Physical TherapyStart: 01-24-2022 End: 44-42-1794Jywaxvu encounter hqfkfutos27/22/2022 Appointment Physical Therapy Vanessa Garcia PTMWHZ Physical TherapyStart: 01-22-2022 End: 12-08-2599Zqsbbyo encounter wrdcshylm88/20/2022 Appointment Physical Therapy Beverly Rangel PTAMWHZ Physical TherapyStart: 01-17-2022 End: 51-04-4345Ndlmkdw encounter wjrppzysd92/15/2022 Appointment Physical Therapy Beverly Rangel PTAMWHUzair Physical TherapyStart: 01-10-2022 End: 02-90-3375Fbzrdxl encounter xibkdqctb00/08/2022 Appointment Physical Therapy Christel Donohue PTMWHZ Physical TherapyStart: 01-08-2022 End: 55-94-7374Yjvujfq encounter xxqhaucsw95/06/2022 Appointment Physical Therapy Beverly Rangel PTAMWHUzair Physical TherapyStart: 01-02-2022 End: 90-05-2564Adjrwom encounter qlaqtluvr74/31/2022 Appointment Occupational Therapy Judi Marie OTA [address] [place] [address] [facility] Occupational TherapyStart: 03-18-0439Adqwdzdr screenDiabetes screen [place], [place]Start: 12-31-2021 End: 35-57-1762Wcjahve encounter procedureMZ Physical TherapyStart: 12-30-2021 End: 62-24-0369Shwourq encounter pyjfwhbze81/28/2022 Appointment Occupational Therapy Cheryl Herman OTMWHUzair Occupational TherapyStart: 12-27-2021 End: 60-44-8833Vcmihyx encounter /25/2022 Appointment Occupational Therapy Eve Gaspar OTAMWHZ Occupational TherapyStart: 11-14-2021 End: 80-78-9372Hdkismx encounter kdvzxuuvv16/10/2022 Office Visit Family Medicine Felipe Adam MD [address] [place] [address] [phone] [facility]: 08-84-4355Olcqvsuvmc MonitoringDepression MonitoringMercy HealthStart: 79-48-6637Gkvuvcuxnv measurementCreatinine monitoringMercy Health Work Phone: start: 60-04-0531Qqmduisqx monitoringPotassium monitoringMercy Health Work Phone: start: 08-01-2021 End: 71-51-4680Ydirczj encounter iliibqnay82/28/2021 Office Visit Urology Lita Weeks MD [address] [facility], [address] [place], [place] [phone] [facility] UrologyStart: 06-05-2021 Influenza vaccinationOhiohealth Hardin Memorial HospitalStart: 40-57-1503Rmyfkyakdh measurement Creatinine monitoringKindred Healthcare, KYStart: 29-51-0186VgR9v (Bld) [Mass fraction]A1C test (Diabetic or Prediabetic)[facility], [place]Start: 05-25-2021 Hemoglobin A1c lqjqjvqzozqN5K test (Diabetic or Prediabetic)[facility] Work Phone: start: 52-63-1397Ocmyhiejf monitoringPotassium [facility], [place]Start: 11-13-2020 End: 63-83-8719Oidxrd Visit11/13/2020 Office Visit Family Medicine Felipe Adam MD [address] [place] [address] [phone] [facility]ospiceStart: 48-10-6086Jqdxuhcsr monitoringPotassium monitoringKindred Healthcare, KYStart: 10-23-2020 End: 01-54-3305Qtorfx Visit10/23/2020 Office Visit Infectious Diseases Dav Hartman MD [address] [facility] [address] [place], [place] [address] [facility]Start: 70-42-1690JpC5l (Bld) [Mass fraction]A1C test (Diabetic or Prediabetic)[facility] WhatserSAINT LUKE[facility], [place]Start: 13-56-0071Yolyguuerf measurementCreatinine monitoringSumma Health [facility] Campus Health [place], [place]Start: 58-18-0491Dqqgdvpeom monitoringCreatinine monitoringSumma Health [facility] Health [place], [place]Start: 67-40-9675Ucvunznmv monitoringPotassium monitoringSumma Health [facility] Campus Health- [place], [place]Start: 06-12-2020 End: 47-23-9330Truruw Visit06/12/2020 Office Visit Infectious Diseases Dav Hartman MD [address] [place], [place] [address] [facility], [facility] HospitalStart: 62-37-2540Crnkgaoum vaccinationFlu vaccine (#1)[facility]: 06-63-7706Zoybldbw cancer screenCervical cancer screenLima Memorial Hospital: 62-42-1974Unpzxcwka for malignant neoplasm of cervixIndianaHealthStart: 11-01-2019 End: 47-62-3031Rhqcnb Visit11/01/2019 Office Visit Infectious Diseases Dav Hartman MD [address] [place], [place] [address] [facility], [facility] HospitalStart: 07-28-2019 End: 55-21-1390Ihgrmp Visit07/28/2019 Office Visit Infectious Diseases Dav Hartman MD [address] [place] [address] [phone] [facility], [facility].Start: 06-27-2019 End: 55-06-0738Kjujm Only06/27/2019 Nurse Only Family [facility] [place] HospiceStart: 24-15-3787Gubcrtuku vaccinationFlu vaccine (#1)[facility]: 05-72-6519Hwpmjxoxz vaccination givenSEQUENTIAL INFLUENZA VACCINE (Season Ended)IndianaHealthStart: 54-58-3500Wqofrclkb for malignant neoplasm of breastIndianaHealthStart: 23-28-4933Rvxzpxthz vaccinationINFLUENZA VACCINE (#1)[facility] Work Phone: Start: 03-23-2018 End: 40-94-9316UrreclnseuLdznFxtutb Primary Care Women's HealthStart: 2009 Screening for malignant neoplasm of cervixHPV (without or with Pap)[facility] SYSTEMStart: 79-83-2099Txvmdlquj for malignant neoplasm of cervixPAP SMEAR [facility] [place] [facility] Work Phone: Start: 16-63-0944Codqpwjzf B vaccine (1 of 3 - 19+ 3- dose series)Hepatitis B vaccine (1 of 3 - 19+ 3-dose series)Bon Bulmarolynnette [facility] HospitalStart: 20-25-9727Kteso diphtheria, tetanus and acellular pertussis (DTaP) vaccinationTDAP (ADULT)[facility] Work Phone: Start: 09-26-7563Gyylsgtqn C screeningHepatitis C ScreeningSelect Medical [facility], Edwin ShawStart: 37-25-9939Djbcsmi vaccinationTETANTriHealth Bet[facility] Work Phone: Start: 96-02-9526EDRXH-19 Vaccine (1)COVID-19 Vaccine (1)[employer] Work Phone: start: 42-64-6010HHJ screenHIV screenKindred Healthcare, KYStart: 69-02-9132LQC screeningHIV screenOhiohealth Hardin Memorial HospitalStart: 56-49-0712GCQ screeningHIV SCREENING [facility] [place] [facility] Work Phone: Start: 47-37-0962KSVLP-19 Vaccine (1)COVID-19 Vaccine (1)[employer] Work Phone: start: 82-64-9577Mpvtjbqfzh MonitoringDepression MonitoringOhiohealth Hardin Memorial HospitalStart: 36-85-2615Zpumsaokhv screening using PHQ-9 (Patient Health Questionnaire 9) scoreOhioHealthStart: 27-80-1205Qmvoq screening for proteinUrine MicroalbuminOhioHealthStart: 52-60-7113Nnehsyrlvxsp Vaccine: Ped or At-Risk (1 - PCV)Pneumococcal Vaccine: Ped or At-Risk (1 - PCV)IndianaHealthStart: 24-24-1233RKIJJ-19 Vaccine (1)COVID-19 Vaccine (1)[facility] HospitalStart: 1982 History and physical examination, annual for health maintenanceSouthside Regional Medical Center Visit IndianaHealthStart: 28-77-7693CDHGG-19 Vaccine (#1)COVID-19 Vaccine (#1)[facility]: 58-80-4473Lwwcxnhrq B vaccine (1 of 3 - 3-dose series) Hepatitis B vaccine (1 of 3 - 3-dose series)[facility]: 10-65-8931Yvntdnkro for malignant neoplasm of colonWaioUniversity Hospitals Portage Medical Center End: 82-74-9345COLNE-19COVID-19 Lab Routine Suspected COVID-19 virus infection 1 Occurrences starting 02/13/2021 until 02/13/2021[facility] Work Phone: comment on above:1 Occurrences starting 02/13/2021 until 02/13/20217423VOQNK-82VAFII-76 Lab Routine Suspected COVID-19 virus infection 02/13/2021 3:06 PM Create Phone: End: 59-35-0154EVBHA-19 AmbulatoryCOVID-19 Ambulatory Lab Routine SOB (shortness of breath) 1 Occurrences starting 08/08/2020 until 08/08/2020[facility], NYComment on above:1 Occurrences starting 08/08/2020 until 08/08/2020COVID-19 AmbulatoryCOVID-19 Ambulatory Lab Routine SOB (shortness of breath) 08/08/2020 4:02 PM [facility], [place] End: 19-29-4813Dbvxdtyufx [Mass/volume] in UrineCreatinine, Random Urine Lab Routine Once for 1 Occurrences starting 05/20/2021 until 05/20/2021[facility] HospitalWorkshopLive Phone: comment on above:Once for 1 Occurrences starting 05/20/2021 until 1Creatinine [Mass/volume] in UrineCreatinine, Random Urine Lab Routine 05/20/2021 7:57 PM Create Phone: End: 85-40-7219Wsudtse, UrineCulture, Urine Microbiology Routine Acute cystitis with hematuria 1 Occurrences starting 04/13/2021until 04/13/2021[facility] Work Phone: comment on above:1 Occurrences starting 04/13/2021 until 1Culture, UrineMerWorkshopLive Phone: End: 39-19-8523Fcxgdsc, UrineCulture, Urine Microbiology Routine Difficult or painful urination 1 Occurrences starting 05/27/2021 until 05/27/20211Lay Phone: comrkhh on above:1 Occurrences starting 05/27/2021 until 05/27/2021 End: 41-77-9356Thhgifn, UrineCulture, Urine Microbiology Routine Acute cystitis with hematuria Recurrent UTI 1 Occurrences starting 06/11/2021 until 06/11/2021 1Lay Phone: comouiv on above:1 Occurrences starting 06/11/2021 until 06/11/2021 End: 15-69-3666Tmorbjq, UrineCulture, Urine Microbiology Routine Frequent UTI Urinary urgency Urinary frequency 1 Occurrences starting 07/11/2021 until 07/11/20211Lay Phone: comiznh on above:1 Occurrences starting 07/11/2021 until 07/11/2021 End: 45-50-3211Qhbgxog, UrineCulture, Urine Microbiology Routine Frequent UTI Urinary urgency Urinary frequency 1 Occurrences starting 08/01/2021 until 08/01/20211Lay Phone: comhrxw on above:1 Occurrences starting 08/01/2021 until 08/01/2021 End: 49-65-8592Glrjrcr, UrineCulture, Urine Microbiology Routine Acute cystitis with hematuria 1 Occurrences starting 04/28/2022until 04/28/2022ON [employer] Phone: comvqcn on above:1 Occurrences starting 04/28/2022 until 04/28/2022 End: 42-04-6940Awnenph, UrineBON [employer] Phone: comjoep on above:1 Occurrences starting 02/05/2023 until 02/05/2023 End: 09-37-1904Saahnxe, Wound (with Gram Stain)Bon Systems Maintenance ServicesComment on above:One Time for 1 Occurrences starting 04/04/2025 until 04/04/2025 End: 82-45-0185CYX Breast - bilateral screeningBon SecAgileSourceComment on above:1 Occurrences starting 02/15/2025 until 02/15/2025 End: 69-84-4876Ekqwdefwto A1c/Hemoglobin.total in BloodBON SECTopsy Labs Work Phone: comment on above:1 Occurrences starting 04/12/2022 until 04/12/2022 End: 15-94-0455Zgofxazprn A1c/Hemoglobin.total in BloodBON SECTopsy Labs Work Phone: Comment on above:Once for 1 Occurrences starting 02/05/2023 until 02/05/2023 End: 74-29-9206Ftllojqslm A1c/Hemoglobin.total in BloodBon SecAgileSource Comment on above:1 Occurrences starting 08/02/2025 until 08/02/2025 End: 16-42-0337Yfbp Sleep StudyDana-Farber Cancer Institutee Sleep Study [facility] Routine One Time for 1 Occurrences starting 08/29/2019 until 08/29/2019[facility] HospitalCogniscanSA[facility], [place] Comment on above:One Time for 1 Occurrences starting 08/29/2019 until 08/29/2019 End: 87-66-6931Nrqfnwkvkkehm Acid, SerumMethylmalonic Acid, Serum Lab Routine Once for 1 Occurrences starting 09/24/2019 until 09/24/2019[facility]WorkshopLive Phone: comhwmd on above:Once for 1 Occurrences starting 09/24/2019 until 09/24/2019Methylmalonic Acid, SerumMethylmalonic Acid, Serum Lab Routine 09/24/2019 9:33 AM [employer] Work Phone: End: 95-44-6672Vinmbwl Ab [Titer] in Serum by ImmunofluorescenceANA Lab Routine Once for 1 Occurrences starting 09/24/2019 until 09/24/2019[facility] HospitalWorkshopLive Phone: comwtnm on above:Once for 1 Occurrences starting 09/24/2019 until 09/24/2019Nuclear Ab [Titer] in Serum by ImmunofluorescenceANA Lab Routine 09/24/2019 9:33 AM EST1Lay Phone: End: 19-78-6357Jwqewql, urine, randomProtein, urine, random Lab Routine Once for 1 Occurrences starting 05/20/2021 until 05/20/20211Lay Phone: comment on above:Once for 1 Occurrences starting 05/20/2021 until 1Protein, urine, randomProtein, urine, random Lab Routine 05/20/2021 7:57 PM Create Phone: End: 36-86-6402Caewuhpxaaehv RateSedimentation Rate Lab Routine MRSA (methicillin resistant Staphylococcus aureus) septicemia (HCC) 1 Occurrences starting 12/14/2019 until 12/14/2019[facility] HospitalFayettechill Clothing CompanyComment on above:1 Occurrences starting 12/14/2019 until 12/14/2019Sedimentation RateSedimentation Rate Lab Routine MRSA (methicillin resistant Staphylococcus aureus) septicemia (HCC) 12/14/2019 12:39 PM [employer] [place] End: 19-84-1162Umpqjkpa syndrome-A extractable nuclear antibodySjogrens syndrome-A extractable nuclear antibody Lab Routine Once for 1 Occurrences starting 09/24/2019 until 09/24/20191Lay Phone: comment on above:Once for 1 Occurrences starting 09/24/2019 until 09/24/2019Sjogrens syndrome-A extractable nuclear antibody Sjogrens syndrome-A extractable nuclear antibody Lab Routine 09/24/2019 9:33 AM [employer] Phone: End: 45-80-4677Mnalyvyq syndrome-B extractable nuclear antibodySjogrens syndrome-B extractable nuclear antibody Lab Routine Once for 1 Occurrences starting 09/24/2019 until 09/24/20191Lay Phone: comrxlu on above:Once for 1 Occurrences starting 09/24/2019 until 09/24/2019Sjogrens syndrome-B extractable nuclear antibody Sjogrens syndrome-B extractable nuclear antibody Lab Routine 09/24/2019 9:33 AM [employer] Phone: End: 86-09-7644Oqthf Study with PAP TitrationSleep Study with PAP Titration Sleep Center Routine One Time for 1 Occurrences starting 09/12/2019 until 09/12/20191Lay Phone: comment on above:One Time for 1 Occurrences starting 09/12/2019 until 09/12/2019 End: 17-55-9595Lusfjdn C5Ptmnxtq B6 Lab Routine Once for 1 Occurrences starting 09/24/2019 until 09/24/20191Lay Phone: comment on above:Once for 1 Occurrences starting 09/24/2019 until 09/24/2019Vitamin P1Ehicidv B6 Lab Routine 09/24/2019 9:33 AM [employer] Phone: XR Cervical spine 4 or 5 ViewsXR cervical spine complete 4 to 5 views Imaging Routine Cervical paraspinal muscle spasm 512:45 PM EDTNOAZ Healthcare Immunizations Immunization DateImmunizationNotesCare MjavdbciDdyqrtrg13-81-1755hquzwil toxoid, reduced diphtheria toxoid, and acellular pertussis vaccine, adsorbedBilly Back [facility] [place] Payers DatePayer CategoryPayerPolicy [id number] Care HMO (unspecified)[facility] HMO/CHOICE PLUS/DULCE/DULCE PLUS [id number] Health Insurance [id number]238.94249-02-4699Ohflmuc Health [id number] 1.2.840.478687.1.13.239.2.7.3.711855.81919-03-1772Skhd-ukl [id number] Cross Blue Shield (Indemnity or Managed Care) - Out of StateBCBS OUT OF STATE [facility] [place] Plan / Payer (Effective 2017-Present) Name: Celina Gaspar Relation to Subscriber: Spouse Name: ROBIN GASPAR Date of : 1979 Address: [address] [place] [address] Payer ID: [id number] (NAIC) Type: Not on file Address: [facility] [address] [place] [id number] [id number]9-4693Msbkohe95-44-1836Xtiuugt [id number]fegayiaqqr 1.2840.926431.1.13.239.2.7.3.169748.315 [id number] 2014MedicaidCARESOURCE MANAGED MEDICAID [facility] MEDICAID xxxxxxxxxxx 2014-Presentxxxxxxxxxxx [id number] 840.1.916195.3.57[id number] .1.201331.3.579.[id number] 2.16840.1.853938.3.579.2.07056-17-7535Oxefonq0023057 2.16840.1.253567.3.579.2.71179-43-3836Iboixzu38170355 2.16840.1.626357.3.579.2.13959-32-3665Tseotws15916460 2.840.1.889553.3.579.2.88879-47-5016Ixqfesw74979277 2.840.1.804339.3.579.2.24348-62-4859Jqdznnc23859879 2.840.1.963394.3.579.2.86584-63-8747Ydngzgw466008075 2.840.1.214574.3.579.2.79779-39-5017Uhsgvea1422034 2.840.1.569667.3.579.2.73196-13-7348Tadlgvd7352647 2.840.1.266903.3.579.2.31863-16-1280Wdvwcjm9340381 2.840.1.692684.3.579.2.59368-33-9863Xgbajky165105457 2.840.1.945200.3.579.2.87133-14-4042Cdjifbh574706567 2.840.1.357086.3.579.2.27686-42-8212Oshqkja09534204 2.16840.1.104543.3.579.2.74485-65-5699Ibyyduq00490528 2.840.1.865450.3.579.2.294070-57-5712Iuzddhv73867718 2.0.1.289948.3.579.2.758665-06-0657Elgvfsj02152564 2..1.774863.3.579.2.610459-93-4911Tldpsmu37163273 2.0.1.310592.3.579.2.662138-22-0728Mrrpesg44984414 2..1.478804.3.579.2.972531-21-5840Xzfokav60425772 2..1.567574.3.579.2.885163-13-5032Mlvzfzv6944526 2..1.788456.3.579.2.071611-15-4697Ozdyoci7055044 2..1.781591.3.579.2.066555-28-5688Cothpub2587963 2..1.255582.3.579.2.571666-88-6402Udtssec5745111 2..1.224173.3.579.2.707097-20-4573Zbpzrfu0613204 2..1.482621.3.579.2.722606-08-3603Mrnjcto30212356 2..1.036025.3.579.2.92715-99-7209Ynxtfal63680926 2..1.508699.3.579.2.44566-50-3605Jgxzeox21356964 2..1.022876.3.579.2.08507-21-0021Rfencoy41717350 2..1.953581.3.579.2.70452-90-1290Wjrcnxw80941178 2.0.1.051316.3.579.2.04524-51-2908Hgftuoe40231930 2.16.840.1.268470.3.579.2.19430-77-5880Dxbdqmu83192685 2.16.840.1.496604.3.579.2.01080-91-5012Iwwrvey59063869 2.16.840.1.501382.3.579.2.73666-01-9679Xcsfxvr20783411 2.16.840.1.837765.3.579.2.53525-82-1307Uaotcwj78525728 2.16.840.1.965096.3.579.2.18756-60-4328GdorqaaOON226718416054 1.2.840.702342.1.13.239.2.7.3.348410.917Hzjvyux111Dylwxuo20662675 2.16.840.1.144323.3.579.2.531 Social History DateTypeDetailFacilityStart: 05-01-2015 End: 97-19-3291Rrwqono smoking status NHISNever smokerOhHolzer Health System Work Phone: Start: 37-45-7022Mhc Assigned At BirthNot on file [facility] Work Phone: Start: 05-27-2019 End: 21-27-6443Qpziemu intakeNoLima Memorial Hospital: 12-13-2019 End: 28-39-2906Gdhqebl intakeCurrent non-drinker of alcohol (finding)[facility]: 12-09-2019 End: 24-67-3135Pqlmfiq SDOH Lgzjfvefr5LdwcaLima Memorial Hospital: 12-09-2019 End: 42-57-9749Onxcnvu SDOH Food Hects0VcwpiLima Memorial Hospital: 12-09-2019 History SDOH Transport Wex9EgmpgLima Memorial Hospital: 05-11-2020 End: 75-01-2976Wjobkfy use and exposureNever [facility] OHTIFFParrott: 10-30-2021 End: 99-51-8839Rdzofdzk to SARS-CoV-2 (event)Not sureLima Memorial Hospital: 33-38-6879Pzz Assigned At [facility] Centertart: 46-00-5861Wzdaefj SDOH Yqxzdeyen1KAZ BULMAROTopsy Labs Work Phone: start: 01-06-2023 End: 21-93-3038Kupgenn of Social functionOhioHealthHow hard is it for you to pay for the very basics like food, housing, medical care, and heatingNot very hard WeHausStart: 42-84-2461Fwrdmvm Health Questionnaire 9 item (PHQ-9) total score [Reported]0[employer]ON [employer]I/We) worried whether (my/our) food would run out before (I/we) got money to buy more.Never trueBON [employer].At any time in the past 12 months, were you homeless or living in halfway [including now]?NoBON [employer] HEALTHStart: 10-09-2020 Gender identityIdentifies as female gender (finding)WeHaus Start: 81-95-4108Wmyriv orientationHeterosexual (finding)BON [employer] HEALTHHow hard is it for you to pay for the very basics like food, housing, medical care, and heatingSomewhat hardBON Estimote HEALTHStart: 06-10-2024 End: 37-85-0328Lzqheqxxx beverage intakeLifetime non-drinker (finding)[facility] HealthcareStart: 15-36-1018Vtigvti CommentCaffeine Intake: Yes, popNOAZ HealthcareStart: 21-71-8889FrlLptcyk (finding)[employer] ([employer]) HealthHow often to you have a drink containing alcohol?NeverBon iQiyi HealthStart: 04-20-2025 End: 95-04-9710Xcxzjjscg beverage intakeEx-drinker (finding)[facility] Start: 56-64-9165Udfhxgy Comment1-2 times a yearNOAZ HealthcareNEGATED: Highlighted rowStart: NINFHistory of tobacco usePassive smokerB[facility] Functional Status DateAssessmentResultFaSentara Obici Hospital Clinical Notes 12-23-2021 to 07-31-2025 Note Date & ViamKpphXjeuifsl45-97-2315 Telephone encounter Note* Telephone Encounter - Janel Allen NP - 07/31/2025 8:33 AM EDT OARRS reviewed. Sent. [facility] HealthOokkxwqfvz11-44-1871 Miscellaneous Notes* Telephone Encounter - Janel Allen NP - 07/31/2025 8:33 AM EDT OARRS reviewed. Sent. documented in this encounterCarondelet HealthZydhtwfkpi56-82-3575 History of Present illness Narrative* Jennie Van [...] reflexes: Goyo's absent. Ankle clonus absent. Coordination Pvyref-br-lgve, rapid alternating movements and kbci-gr-pzmy normal bilaterally without dysmetria. Gait Casual gait: [...] Continue current management plan documented in this encounterCarondelet HealthSqtjegkjas80-67-8127 Telephone encounter Note* Telephone Encounter - Paresh Cary - 05/23/2025 9:36 AM EDT Patient same day canceled due to her foot being in a boot and cannot drive by herself. [facility] HealthFcmcfiqngt26-83-3129 Miscellaneous Notes* Telephone Encounter - Paresh Luis Daniel - 05/23/2025 9:36 AM EDT Patient same day canceled due to her foot being in a boot and cannot drive by herself. documented in this encounterCarondelet HealthStmxbxdusr99-12-5198 History of Present illness Narrative* Robbin Sánchez, [...] next visit with xra documented in this encounterCarondelet HealthCizyoeudrv40-28-1361 Evaluation note* Diagnosis Chronic renal impairment, stage [...] 3a (HCC) documented in this encounter [facility]07-10-2025 Evaluation note* Diagnosis Chronic renal impairment, stage 3a (HCC)- Primary Depression with anxiety Dysthymic disorder Gastroesophageal reflux disease without esophagitis Esophageal reflux Vitamin D deficiency Unspecified vitamin D deficiency Mixed hyperlipidemia BUCK on CPAP Obstructive sleep apnea (adult) (pediatric) Restless legs Restless legs syndrome (RLS) Hyperglycemia Other abnormal glucose Pain in right foot Pain in limb documented in this encounter [facility]07-03-2025 History of Present illness Narrative* Robbin Sánchez, INDER - 04/06/2025 4:30 PM EDT Celina Gaspar is a 44 y.o. female presents with chief complaint of Foot Ulcer (RT toe 2 ulcer) HPI: HPI Pt has ulcer on RT toe 2 for about 2 wks. She went to [facility] ER on 04-04-25, xrays, culture and [...] toe or midfoot but also Charcot MRI [facility] 04-11-25 11:30 AM, arrive at 11:00 AM. Pt notified. documented in this encounterCarondelet HealthDoizmfxvvy29-56-6487 Evaluation note* Diagnosis Chronic renal impairment, stage [...] laterality- Primary documented in this encounter [facility]06[facility] History of Present illness Narrative* Lynn [...] current (Dreamwear) mask. See below. Get [facility] Weight loss. 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 Lab Frequency Next Occurrence Therapeutic injection carpal [...] Neurology ? [address] ? [place], [place] [address] ? ? fax Neurology ? Clinical Neurophysiology ? Epilepsy ? Sleep Disorders ? Clinical Informatics documented in this encounterCarondelet HealthVprmechgtv33-98-9025 Evaluation note* Diagnosis Chronic renal impairment, stage [...] screening mammogram documented in this encounter [facility]05-12-2025 History of Present illness Narrative* Trace [...] Not at risk (11/15/2024) Received from [facility] PHQ-2 PHQ-9 Total Score: 0 [...] reflexes: Goyo's absent. Ankle clonus absent. Coordination Plfpbb-bv-yhfu, rapid alternating movements and wawl-qh-mqlq normal bilaterally without dysmetria. Gait Normal casual, toe, heel and tandem gait. Romberg is absent. 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 She continues to have significant discomfort in her feet to interrupt her sleep. This is likely worsened by [id number]-Okbre-Ewcxg for which she had surgery in February [...] nasal pillows. She will take this to [facility] in [place]. We will get the original sleep study from [facility] for review. She is following with Dr. Block for sleep medicine. EVALUATION: PSG 03/2024 - CPAP [id number] w/heated humidification EMG of BUE 11/25 showed [...] Hernandez acting under the direction of Trace aCsas MD. 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 [address] ? [place] [address] ? ? fax Neurology ? Clinical Neurophysiology ? Epilepsy ? Sleep Disorders ? Clinical Informatics documented in this encounterCarondelet [id number] Telephone encounter Note* Telephone Encounter - Janel Allen NP - 11/02/2024 9:16 PM EST Pharmacy sends medication clarification for nortriptyline as there are two directions on one received. Per ONUR Gunderson plan increase nortriptyline 50 mg 2 daily/bedtime total of 100 mg. [facility] [id number] Miscellaneous Notes* Telephone Encounter - Janel Allen NP - 11/02/2024 9:16 PM EST Pharmacy sends medication clarification for nortriptyline as there are two directions on one received. Per ONUR Gunderson plan increase nortriptyline 50 mg 2 daily/bedtime total of 100 mg. documented in this encounterCarondelet [id number] [place] [address] (11) [facility] [address] [place] [address] MEDICAL OFFICE [facility] [address] Dept: [phone] Loc: [phone] MD Celina Browne 44 y.o. female Patient [...] Resource Strain: Medium Risk (05/08/2024) Received from [facility] Overall Financial Resource Strain (CARDIA) Difficulty of Paying Living Expenses: Somewhat hard Food Insecurity: No Food Insecurity (05/08/2024) Received from [facility] Hunger Vital Sign Worried About Running Out of Food in the Last Year: Never true Ran Out of Food in the Last Year: Never true Transportation Needs: Unknown (05/08/2024) Received from [facility] PRAPARE - Transportation Lack of Transportation (Non-Medical): No Housing Stability: Unknown (05/08/2024) Received from [facility] Housing Stability Vital Sign Unstable Housing [...] of submandibular glands, clear salivary flow from Wagram's ducts, no stones of Wagram's ducts Temporomandibular Joint: no crepitus with motion, no tenderness on palpation, no mayo (more content not included)...[facility] [id number] History of Present illness Narrative* Dimas Adair MD - 10/11/2024 10:05 AM EST [facility] [address] (11) [facility] [address] MEDICAL OFFICE BUILDING [facility] [address] Dept: [phone] Loc: [phone] MD Celina Browne 44 y.o. female Patient [...] Resource Strain: Medium Risk (05/08/2024) Received from [facility] Overall Financial Resource Strain (CARDIA) Difficulty of Paying Living Expenses: Somewhat hard Food Insecurity: No Food Insecurity (05/08/2024) Received from [facility] Hunger Vital Sign Worried About Running Out of Food in the Last Year: Never true Ran Out of Food in the Last Year: Never true Transportation Needs: Unknown (05/08/2024) Received from [facility] PRAPARE - Transportation Lack of Transportation (Non-Medical): No Housing Stability: Unknown (05/08/2024) Received from [facility] Housing Stability Vital Sign Unstable Housing [...] subma ndibular glands, clear salivary flow from Wagram's ducts, no stones of Felipe's ducts Temporomandibular [...] Hematological: Negative. Psychiatric/Behavioral: Negative. documented in this [id number] Telephone encounter Note* Telephone Encounter - Gwen Meng - 09/14/2024 2:18 PM EST Voicemail Received: Our numbers [phone] actually have a question regarding a prescription that was prescribed today, If someone could please call me back. Thank you. Byjuanpablo. [facility] HealthXkpahqhrxj07-76-1386 Miscellaneous Notes* Telephone Encounter - Gwen Meng - 09/14/2024 2:18 PM EST Voicemail Received: Our numbers [phone] actually have a question regarding a prescription that was prescribed today, If someone could please call me back. Thank you. Rosa Isela. documented in this encounterCarondelet [id number] Miscellaneous Notes* Telephone Encounter - My Johnson - 08/11/2024 12:03 PM EST Patient called and requested refill of Lyrica to be sent to [facility] in [place]. documented in this encounterCarondelet [id number] Telephone encounter Note* Telephone Encounter - My Johnson - 08/11/2024 12:03 PM EST Patient called and requested refill of Lyrica to be sent to [facility] in [place]. [facility] [id number] History of Present illness Narrative* Tequila Obando [...] Grandfather Depression: At risk (01/28/2024) Received from [facility] PHQ-2 PHQ-9 Total Score: 6 REVIEW [...] reflexes: Goyo's absent. Ankle clonus absent. Coordination Qmwhgu-og-tlnn, rapid alternating movements and qggk-ip-vrmm normal bilaterally without dysmetria. Gait Normal casual, [...] Follow up 3 months. documented in this encounterCarondelet [id number] History of Present illness Narrative* Cheryl Miles, [...] was counseled on the risks of stroke, [place], and sudden with BUCK, along with the [...] to clinic: 3-6 months documented in this encounterCarondelet HealthPhdxisfbxl14-27-1027 History of Present illness Narrative* MASSIMO Shook [...] 2022. Shefollows with an outside provider in [place] and was immobilized for an extended period [...] Foot & Ankle Surgery documented in this [id number] NotePROCEDURE: XR ANKLE LT MIN 3 V, [...] Electronically authenticated by: PIPER MERCEDES Date: 2023-01-29 07:05[facility]04-27-2023 NotePROCEDURE: XR ANKLE LT MIN 3 [...] Electronically authenticated by: PIPER MERCEDES Date: 2023-01-29 07:05[facility]10-05-2022 History of Present illness Narrative* Smaantha Lino RD, LD - 07/09/2022 10:00 AM [...] BMR: 1573 calories Est. total calorie needs: ~6355-0853 Lab Results Component Value Date/Time TRIG 460 [...] bread Supper: pork chop or chicken, homemade british virgin islander fries, mashed, or baked potato with [...] session duration: 55 minutes. [facility] Phone: [phone]) 805-740905-04-2022 History of Present illness Narrative* Christel Donohue, PT - 02/05/2022 9:45 AM EDT [facility] Date: 02/05/2022 Patient Name: Celina Gaspar : 1980 Pt No Showed Appt- Follow up call, left message on voicemail that patient discharged, but to call if has questions or concerns. Christel Donohue, PT Date: 02/05/2022 [facility] Phone: [phone]) 308-857905-04-2022 Hospital course Narrative* Christel Donohue, PT - 02/05/2022 9:45 AM EDT Images from the original note were not included. [facility] Outpatient [facility] Therapy Discharge Summary Patient: Celina Gaspar : 1980 Referring Practitioner: Liliane Sawyer APRN, OUTDOOR ILLUMINATING ENGINEER Referral Date : 12/19/21 Diagnosis: Lumbar [...] Donohue, PT Date: 02/05/[address] [facility] Phone: 1([phone]) 329-906405-02-2022 History of Present illness Narrative* Jerica Melgar - 02/03/2022 10:30 AM EDT [facility] Date: 02/03/2022 Patient Name: Celina Gaspar : 1980 Pt Cancelled Appt due to no reason for cancel. Jerica Melgar Date: 02/03/[address] [facility] Phone: [phone]) 436-583404-27-2022 History of Present illness Narrative* Beverly Rangel, JENNIFER - 01/29/2022 9:00 AM EDT Images from the original note were not included. [facility] Daily Note Date: [...] Increase trunk ROM B rotation WFL-Not Met Social Media Project Manager Goals - Time Frame for oil heaterman goals : 10 Social Media Project Manager Goals Time Frame for oil heaterman goals : 10 oil heaterman goal 1: Decrease pain low back 2/10 at worst x3 days for completing normal activities MCC goal 2: Patient to report 50% decrease in radicular symptoms L LE Post Treatment Pain: 5/10 Time In: 0859 Time Out: 0947 Timed Code Treatment Minutes: 48 Minutes Total Treatment Time: 48 Minutes Beverly Rangel PTA Date: 01/29/2022 documented in this [facility] Phone: [phone] History of Present illness Narrative* Christel Donohue, PT - 01/27/2022 3:45 PM EDT Images from the original note were not included. [facility] Daily Note Date: [...] Increase trunk ROM B rotation WFL-Not Met Half-Way Goals - Time Frame for MCC goals : 10 Social Media Project Manager Goals Time Frame for MCC goals : 10 oil heaterman goal 1: Decrease pain low back 2/10 at worst x3 days for completing normal activities MCC goal 2: Patient to report 50% decrease in radicular symptoms L LE Post Treatment Pain: 4/10 Time In: 15:50 Time Out : 16:19 Timed Code Treatment Minutes: 34 Minutes Total Treatment Time: 34 Minutes Christel Donohue, PT Date: 01/27/[address] [facility] Phone: [phone]) 263-454304-22-2022 History of Present illness Narrative* Vanessa Castro Radha, PT - 01/24/2022 9:45 AM EDT Images from the original note were not included. [facility] Daily Note Date: [...] 4: Increase trunk ROM B rotation WFL Social Media Project Manager Goals - Time Frame for MCC goals : 10 Social Media Project Manager Goals Time Frame for oil heaterman goals : 10 oil heaterman goal 1: Decrease pain low back 2/10 at worst x3 days for completing normal activities MCC goal 2: Patient to report 50% decrease in radicular symptoms L LE Post Treatment Pain: 5/10 Time In: 0952 Time Out: 1030 Timed Code Treatment Minutes: 38 Minutes Total Treatment Time: 38 Minutes Vanessa Garcia, PT Date: 01/24/2022 documented in this [facility] Phone: [phone]) 840-468904-20-2022 History of Present illness Narrative* Beverly Gutiérrez Rangel, FACILITIES LOCATOR - 01/22/2022 4:45 PM EDT [facility] Date: 01/22/2022 Patient Name: Celina Gaspar : 1980 Patient did not show up for her appointment. Message left on answering machine with a reminder of her next appointment on Thursday. Beverly Brock Claire, FACILITIES LOCATOR Date: 01/22/2022 documented in this [facility] Phone: [phone]) [phone] History of Present illness Narrative* Beverly Gutiérrez Rangel, FACILITIES LOCATOR - 01/17/2022 10:30 AM EDT Images from the original note were not included. [facility] Daily Note Date: 01/17/2022 Patient Name: Celina Gaspar : 1980 (41 y.o.) Referring Practitioner: Liliane Sawyer APRN, OUTDOOR ILLUMINATING ENGINEER Referral Date : 12/19/21 Diagnosis: Lumbar [...] 4: Increase trunk ROM B rotation WFL Half-Way Goals - Time Frame for oil heaterman goals : 10 oil heaterman goal 1: Decrease pain low back 2/10 at worst x3 days for completing normal activities oil heaterman goal 2: Patient to report 50% decrease in radicular symptoms L LE Post Treatment Pain: 5/10 Time In: 1037 Time Out: 1107 Timed Code Treatment Minutes: 30 Minutes Total Treatment Time: 30 Minutes Beverly Rangel PTA Date: 01/17/[address] [facility] Phone: [phone]) 530-102004-11-2022 History of Present illness Narrative* ISAIAH Metzger - 01/13/2022 3:15 PM EDT [facility] Date: 01/13/2022 Patient Name: Celina Gaspar : 1980 Pt Cancelled Appt due to no reason given. NABILA Metzger Date: 01/13/[address] [facility] Phone: [phone]) 436-846104-01-2022 History of Present illness Narrative* Beverly Rangel PTA - 01/03/2022 9:45 AM EDT Images from the original note were not included. [facility] Daily Note Date: [...] 4: Increase trunk ROM B rotation WFL Half-Way Goals - Time Frame for MCC goals : 10 MCC goal 1: Decrease pain low back 2/10 at worst x3 days for completing normal activities oil heaterman goal 2: Patient to report 50% decrease in radicular symptoms L LE Post Treatment Pain: 5/10 Time In: 0948 Time Out: 1028 Timed Code Treatment Minutes: 40 Minutes Total Treatment Time: 40 Minutes Beverly Rangel PTA Date: 01/03/[address] [facility] Phone: [phone]) [phone] History of Present illness Narrative* Cheryl Herman OT - 12/31/2021 9:30 AM EDT Images from the original note were not included. [facility]ational Therapy Daily Note Date: [...] Time Frame for Short term goals: STG=LTG Social Media Project Manager Goals Time Frame for MCC goals : 12 visits (01/24/2022) oil heaterman goal 1: pt to be indepenent in HEP-MET oil heaterman goal 2: Pt to demonstrate R wrist flexion to 65 degrees or more in order to engage in daily tasks-MET oil heaterman goal 3: Pt to demonstrate R wrist [...] in this [facility] Phone: [phone]) 180-110103-29-2022 Hospital course Narrative* Cheryl Castro NORMAN Herman - 12/31/2021 9:30 AM EDT Images from the original note were not included. 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 Therapist provided pt with handout on Carpal Tunnel Dos & Dont's to avoid re-injury. Prognosis: Fair Goals Short Term Goals Time Frame for Short term goals: STG=LTG Half-Way Goals Time Frame for oil heaterman goals : 12 visits (01/24/2022) MCC goal 1: pt to be indepenent in HEP-MET oil heaterman goal 2: Pt to demonstrate R wrist [...] in this [facility] Phone: [phone]) [phone] History of Present illness Narrative* Christel Donohue, PT - 12/31/2021 8:30 AM EDT Images from the original note were not included. [facility] Evaluation Date: 12/31/2021 [...] 4: Increase trunk ROM B rotation WFL MCC goals Time Frame for MCC goals : 10 oil heaterman goal 1: Decrease pain low back 2/10 at worst x3 days for completing normal activities MCC goal 2: Patient to report 50% decrease in radicular symptoms L LE Patient's Goal: Decrease back pain to complete normal activities Timed Code Treatment Minutes: 15 Minutes Total Treatment Time: 45 Time In: 8:30 Time Out: 9:15 Christel Donohue, PT Date: 12/31/2021 documented in this [facility] Work Phone: [phone]) [phone] History of Present illness Narrative* Cheryl Herman OT - 12/30/2021 8:30 AM EDT Images from the original note were not included. [facility] Therapy Daily Note Date: 12/30/2021 Patient: eClina Gaspar : 1980 Referring Practitioner: Keenan Lozano [...] Time Frame for Short term goals: STG=LTG Half-Way Goals Time Frame for MCC goals : 12 visits (01/24/2022) MCC goal 1: pt to be indepenent in HEP-MET oil heaterman goal 2: Pt to demonstrate R wrist flexion to 65 degrees or more in order to engage in daily tasks-MET MCC goal 3: Pt to demonstrate R wrist extension to 60 degrees or more in order to engage in daily tasks-MET oil heaterman goal 4: Pt to be educated on carpal tunnel do's & dont's in order to prevent further repetitive injury to wrist-MET Time In: 835 Time Out: 915 Timed Coded Minutes: 40 Total Treatment Time: 40 THERESA Houser, OTR/L Date: 12/30/[address] [facility] Phone: [phone]) [phone] History of Present illness Narrative* Cheryl Castro Batsheva, OT - 12/23/2021 8:30 AM EDT Images from the original note were not included. [facility] Evaluation Date: 12/23/2021 [...] completing these mvmts Left Hand Strength - Supervisor Statement Clerks (lbs) Handle Setting 2: 54#, 50#, 53# (52.3# ave) Left Hand Strength - Pinch (lbs) Lateral: 13.5# Tip: 8# Palmar 3 point: 11# Right Hand Strength - Supervisor Statement Clerks (lbs) Handle Setting 2: 53#, 54#, 53# [...] for MCC goals : 12 visits (01/24/2022) oil heaterman goal 1: pt to be indepenent in HEP oil heaterman goal 2: Pt to demonstrate R wrist flexion to 65 degrees or more in order to engage in daily tasks oil heaterman goal 3: Pt to demonstrate R wrist [...] THERESA Houser, OTR/Matthew 12/23/2021 [facility] [place] [employer] Phone: evalexgfzd note* Diagnosis Viral illness Unspecified viral infection, in conditions classified elsewhere and of unspecified site [facility]: evalicdbtl note* Diagnosis Suspected COVID-19 virus infection documented [facility] Phone: evalmquyaa note* Diagnosis Acute cystitis with hematuria Acute cystitis documented [facility]: evaluation note* Diagnosis Difficult or painful urination Dysuria documented [facility] Phone: evalhbeuqj note* Diagnosis Acute cystitis with hematuria Acute cystitis Recurrent UTI Urinary tract infection, site not specified documented [facility] Phone: evalcvgyap note* Diagnosis Frequent UTI Urinary tract infection, site not specified Urinary urgency Urgency of urination Urinary frequency documented [facility] Phone: evalslwxtr note* Diagnosis Frequent UTI Urinary tract infection, site not specified Urinary urgency Urgency of urination Urinary frequency documented [facility] Phone: evalubtlan note* Diagnosis MRSA (methicillin resistant Staphylococcus aureus) septicemia (HCC) Methicillin resistant staphylococcus aureus septicemia documented in this encounter [facility]The Stakeholder CompanyNov[facility] noteNo assessment information availableVan Wert County [facility] Work Phone: Evaluation note* Diagnosis Fatigue, unspecified type Encounter for screening for HIV Mixed hyperlipidemia Hyperglycemia Other abnormal glucose Chronic renal impairment, stage 3b (HCC) documented in this encounter [facility] Work Phone: evalaujwmf note* Diagnosis Acute cystitis with hematuria Acute cystitis documented in this encounter [employer] Phone: evaluation note* Diagnosis Neck mass Swelling, mass, or lump in head and neck documented in this encounter [employer] Phone: evaluation note* Diagnosis Pain of foot, unspecified laterality Closed nondisplaced fracture of second metatarsal bone of left foot, initial encounter Closed nondisplaced fracture of lateral cuneiform of left foot, initial encounter documented in this encounter [employer] Phone: evaluation note* Diagnosis Foreign body (FB) in soft tissue Residual foreign body in soft tissue documented in this encounter [employer] Phone: evaluation note* Diagnosis Pelvic pressure in female Other specified symptom associated with female genital organs documented in this encounter [employer] Phone: evalxnthht note* Diagnosis Charcot arthropathy of midfoot- Primary Gastrocnemius equinus, unspecified laterality Foot pain, left Pain in soft tissues of limb [facility]* Diagnosis Mixed hyperlipidemia documented in this encounter [employer] note* Diagnosis Idiopathic progressive polyneuropathy Non-seasonal allergic rhinitis due to pollen documented in this encounter [facility]* Diagnosis Thyroid nodule Nontoxic uninodular goiter documented in this encounter [employer] note* Diagnosis Thyroid nodule- Primary Nontoxic uninodular goiter [facility]* Diagnosis BUCK on CPAP- Primary 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 (CMS/HCC) Restless legs Restless legs syndrome (RLS) Bilateral carpal tunnel syndrome Carpal tunnel syndrome documented in [facility] encounter [facility]* Diagnosis Idiopathic progressive polyneuropathy- Primary Bilateral carpal tunnel syndrome Carpal tunnel syndrome Restless legs Restless legs syndrome (RLS) Intractable 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 (CMS/HCC) documented in this encounter [facility] HealthcareEvaluation note* Diagnosis BUCK (obstructive sleep apnea) Obstructive sleep apnea (adult) (pediatric) Hypersomnia Hypersomnia, unspecified Snoring Other dyspnea and respiratory abnormality Class 2 obesity due to excess calories with body mass index (BMI) of 38.0 to 38.9 in adult, unspecified whether serious comorbidity present documented in this encounter [facility] HealthcareEvaluation note* Diagnosis Idiopathic progressive polyneuropathy Non-seasonal allergic rhinitis due to pollen documented in this encounter [facility] HealthcareEvaluation note* Diagnosis Thyroid nodule- Primary Nontoxic uninodular goiter Lipoma of neck [facility]* Diagnosis 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 (CMS/HCC) documented in this encounter [facility] HealthcareEvaluation note* Diagnosis BUCK on CPAP- Primary Idiopathic progressive polyneuropathy Restless legs Restless legs syndrome (RLS) Intractable 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 (CMS/HCC) documented in this encounter [facility] HealthcareEvaluation note* Diagnosis Pre-diabetes Other abnormal glucose Mixed hyperlipidemia [facility]* Diagnosis BUCK (obstructive sleep apnea)- Primary Obstructive sleep apnea (adult) (pediatric) BUCK on CPAP Claustrophobia (CMS/HCC) Other isolated or specific phobias documented in this encounter [facility] HealthcareEvaluation note* Diagnosis BUCK (obstructive [...] apnea (adult) (pediatric) documented in this encounter [facility] HealthcareEvaluation note* Diagnosis BUCK (obstructive sleep apnea)- Primary Obstructive sleep apnea (adult) (pediatric) BUCK on CPAP Claustrophobia Other isolated or specific phobias BUCK (obstructive sleep apnea)- Primary Obstructive sleep apnea (adult) (pediatric) Claustrophobia Other isolated or specific phobias Hypersomnia Hypersomnia, unspecified documented in this encounter [facility] HealthcareEvaluation note* Diagnosis BUCK (obstructive [...] Other abnormal glucose documented in this encounter [facility] Discharge instructions* Attachments The following attachments cannot be sent through Care Everywhere. * Diabetic Foot Ulcer (Cambodian) documented in this [facility] Narrative* Other (Routine) - ClosedSpecialtyDiagnoses / ProceduresReferred By Contact Referred To ContactRadiology Diagnoses Encounter for screening mammogram for malignant neoplasm of breast Procedures [facility] BRIAN DIGITAL SCREEN BILATERAL Back, [place] [address] Phone: tel: fax: Referral IDStatusReasonStart DateExpiration DateVisits RequestedVisits [id number]/27/20254/ [facility] for [facility] Narrative* Imaging (Emergency) - Pending ReviewSpecialtyDiagnoses / ProceduresReferred By ContactReferred To ContactRadiology Diagnoses Pain in right foot Procedures MRI FOOT RIGHT W WO CONTRAST Robbin Sánchez, DPMónica [address], [place] [address] Phone: tel: fax: Referral IDStatusReasonStart DateExpiration DateVisits RequestedVisits [id number] Review [facility] Summary Purpose Family History No Family [...] PMFull Code03/05/2017 10:05 AM03/05/2017 12:56 PMDate ActivatedDate MpcidgkmycnFnwtlqhq86/11/2018 4:17 PM08/25/2018 8:55 PMDate ActivatedDate InactivatedComments03/19/2017 1:37 PM03/19/2017 4:32 PMDate ActivatedDate InactivatedComments03/19/2017 10:57 AM03/19/2017 1:37 PMDate ActivatedDate InactivatedComments03/05/2017 12:56 PM03/05/2017 3:55 PMDate Activated Date InactivatedComments03/05/2017 10:05 AM03/05/2017 12:56 PMDate ActivatedDate BzqpkzozmhaGvbthbvq92/11/2018 4:17 PM08/25/2018 8:55 PMDate ActivatedDate InactivatedComments03/19/2017 1:37 [...] Everywhere. * Back Care Basics: General Info (Cambodian) * Back: Preventing Injuries (Cambodian) documented in this encounter Reason for Referral StatusReasonSpecialtyDiagnoses / ProceduresReferred By ContactReferred To ContactClosedRadiology Diagnoses Brachial neuritis Peripheral nerve disorder Spasm of muscle Procedures MR Cervical Spine Without Contrast Trace Casas MD [address] [place] [address] SpecialtyDiagnoses / ProceduresReferred By ContactReferred To ContactRadiology Diagnoses Neck mass Procedures US HEAD NECK SOFT TISSUE THYROID Felipe Adam MD [address] [place] [address] Referral IDStatusReasonStart DateExpiration DateVisits RequestedVisits [id number]/23/20228/[id number] / Procedures Referred By ContactReferred To ContactRadiology Diagnoses Thyroid nodule Procedures US THYROID Back, MD [address] [place] [address] Referral IDStatusDino DateExpiration DateVisits RequestedVisits [id number] Zljjrs54 Chief Complaint and Reason for Visit Chief Complaint M54.16 M79.10 M79.60 9 R20.9 Chief Complaint Unknown Additional Source Comments INFORMATION SOURCE (unrecogn ized section and content) DATE CREATED AUTHOR 03/30/2018 [facility] DATE CREATED AUTHOR AUTHOR'S ORGANIZ ATION 03/30/2018 [facility] DATE CREATED AUTHOR AUTHOR'S ORGANIZ ATION 09/15/2018 [facility] DATE CREATED AUTHOR AUTHOR'S ORGANIZ ATION 09/23/2018 [facility] DATE CREATED AUTHOR AUTHOR'S ORGANIZ ATION 09/26/2018 [facility] DATE CREATED AUTHOR AUTHOR'S ORGANIZ ATION 12/10/2018 [facility] DATE CREATED AUTHOR AUTHOR'S ORGANIZ ATION 12/18/2018 [facility] DATE CREATED AUTHOR AUTHOR'S ORGANIZ ATION 02/11/2019 [facility] DATE CREATED AUTHOR AUTHOR'S ORGANIZ ATION 11/30/2021 [facility] DATE CREATED AUTHOR AUTHOR'S ORGANIZ ATION 05/01/2022 [facility] DATE CREATED AUTHOR AUTHOR'S ORGANIZ ATION 01/12/2023 [facility] DATE CREATED AUTHOR AUTHOR'S ORGANIZ ATION 02/15/2023 [facility] DATE CREATED AUTHOR AUTHOR'S ORGANIZ ATION 04/04/2023 [facility] DATE CREATED AUTHOR AUTHOR'S ORGANIZ ATION 02/20/2024 [facility] DATE CREATED AUTHOR AUTHOR'S ORGANIZ ATION 10/17/2024 [facility] DATE CREATED AUTHOR AUTHOR'S ORGANIZ ATION 02/14/2025 [facility] DATE CREATED AUTHOR AUTHOR'S ORGANIZ ATION 2025 [facility] DATE CREATED AUTHOR AUTHOR'S ORGANIZ ATION 08/04/2025 [facility] Reason for Visit (unrecogniz ed section and content) ReasonCommentsSleep ApneaSpecialtyDiagnoses / ProceduresReferred By Contact Referred To ContactNeurology Diagnoses BUCK on CPAP Procedures IA OFFICE/OUTPATIENT NEW HIGH MDM 60 MINUTES Fozia Meng, SQUARE DANCE CALLER [address], [facility] [address] [place] [address] Phone: tel: fax: Lynn Block MD [address] [facility] [address] [place] [address] Phone: tel: fax: Referral IDStatusReasonStart DateExpiration DateVisits RequestedVisits [id number] Specialty Services Required /[id number]trcfhe / ProceduresReferred By ContactReferred To ContactClosedRadiology Diagnoses Brachial neuritis Peripheral nerve disorder Spasm of muscle Procedures MR Cervical Spine Without Contrast Trace Casas MD [address] [place] [address] SpecialtyDiagnoses / ProceduresReferred By ContactReferred To Contact Occupational Therapy Diagnoses Carpal tunnel syndrome Carpal Tunnel Syndrome Procedures Eval and treat Keenan Lozano MD [address] [facility] [address] [place] [address] [facility] [address] [place] [address] Referral IDStatusReasonStben DateExpiration DateVisits RequestedVisits [id number]/17/20223/[id number] / Procedures Referred By ContactReferred To ContactPhysical Therapy Diagnoses Radiculopathy, lumbar region Lumbar Radiculopathy Procedures Eval and treat Janel Allen, PICTURE COPYIST - OUTDOOR ILLUMINATING ENGINEER [address] [place] [address] [facility] [address] [place] [phone] Referral IDStatusReasonStart DateExpiration DateVisits RequestedVisits [id number] / Procedures Referred By ContactReferred To ContactRadiology Diagnoses Neck mass Procedures US HEAD NECK SOFT TISSUE THYROID Felipe Adam MD [address] [place] [address] Referral IDStatusReasonStart DateExpiration DateVisits RequestedVisits [id number]/23/20228/[id number] / Procedures Referred By ContactReferred To ContactRadiology Diagnoses Pain of foot, unspecified laterality Closed nondisplaced fracture of lateral cuneiform of left foot, initial encounter Procedures MRI FOOT LEFT W WO CONTRAST MRI FOOT LEFT W WO CONTRAST Robbin Sánchez, DPM [address], [place] [address] Referral IDStatusMerlynkindred hospitalStart DateExpiration DateVisits RequestedVisits [id number]/16/20229/[id number]v Class SpecialtyDiagnoses / ProceduresReferred By ContactReferred To ContactDiabetes Services Diagnoses Pre-diabetes Felipe Adam MD [address] [place] [phone] [facility] [address] [place] [phone] Referral IDStatusReasonStart DateExpiration DateVisits RequestedVisits [id number] Specialty Services Required /[id number] / ProceduresReferred By ContactReferred To ContactDiabetes Services Diagnoses Pre-diabetes Felipe Adam MD [address] [place] [phone] [facility] [address] [place] [address] ReasonCommentsOtherLeft foot charcot on-going since 06/2022. New x-rays today. 2nd of opinion.SpecialtyDiagnoses / ProceduresReferred By ContactReferred To ContactRadiology Diagnoses Thyroid nodule Procedures US THYROID Felipe Adam MD [address] [place] [phone] Referral IDStatusReasonStart DateExpiration DateVisits RequestedVisits [id number] Xvogbb37/[id number] DateCommentsMed Gpkiob7310/05/2024ReasonCommentsNew PatientFNA - THYROID NODULESpecialtyDiagnoses / ProceduresReferred By ContactReferred To ContactOtolaryngology Diagnoses Thyroid nodule Felipe Adam MD [address] [place] [address] Phone: tel: fax: Dimas Adair MD [address] [place] [address] Phone: tel: fax: Referral IDStatusReasonStart DateExpiration DateVisits RequestedVisits [id number] [id number] UlcerNiranjan presents to ER with a skin [...] DateEnd Date Felipe Adam MD [address] [place] [phone] PCP - GeneralInternal Medicine11/14/11Team MemberRelationshipSpecialtyStart Date End Date Back, MD Felipe [address] [place] [id number] PCP - GeneralInternal Medicine11/14/11Team MemberRelationshipSpecialtyStart Date End Date Back, MD [address] [place] [address] PCP - GeneralInternal Medicine11/14/11Team MemberRelationshipSpecialtyStart Date End Date Back, MD Felipe [address] [place] [address] PCP - GeneralInternal Medicine11/14/11Team MemberRelationshipSpecialtyStart Date End Date Back, MD Felipe [address] [place] [address] PCP - GeneralInternal Medicine11/14/11Team MemberRelationshipSpecialtyStart Date End Date Back, MD Felipe [address] [place] [address] PCP - GeneralInternal Medicine11/14/11Team MemberRelationshipSpecialtyStart Date End Date Back, MD Felipe [address] [place] [id number] PCP - GeneralInternal Medicine11/14/11 Team Status: Inactive Member Role Status Dates NON STAFF Primary Care Provider Active Trace [facility] ProviderActive Team Status: Active Member Role Status Dates NON STAFF Primary Care Provider Active Team MemberRelationshipSpecialtyStart DateEnd Date Back, MD [address]ipe [address] [place] [address] PCP - GeneralInternal Medicine11/14/11Team MemberRelationshipSpecialtyStart Date End Date Back, MD [address] [place] [id number] PCP - GeneralInternal Medicine11/14/11Team MemberRelationshipSpecialtyStart Date End Date Back, MD Felipe [address] [place] [id number] PCP - GeneralInternal Medicine11/14/11Team MemberRelationshipSpecialtyStart Date End Date Back, MD Felipe [address] [place] [id number] PCP - GeneralInternal Medicine11/14/11Team MemberRelationshipSpecialtyStart Date End Date Back, MD Felipe [address] [place] [address] PCP - GeneralInternal Medicine11/14/11Team MemberRelationshipSpecialtyStart Date End Date Back, MD Felipe [address] [place] [id number] PCP - GeneralInternal Medicine11/14/11Team MemberRelationshipSpecialtyStart Date End Date Back, MD Felipe [address] [place] [id number] PCP - GeneralInternal Medicine11/14/11Team MemberRelationshipSpecialtyStart Date End Date Back, MD Felipe [address] [place] [id number] PCP - GeneralInternal Medicine11/14/11Team MemberRelationshipSpecialtyStart Date End Date Back, MD Felipe [address] [place] [phone] PCP - GeneralInternal Medicine03/26/15Team MemberRelationshipSpecialtyStart Date End Date Back, MD Felipe [address] [place] [id number] PCP - GeneralInternal Medicine11/14/11 Team Status: Inactive Member Role Status Dates Frances Harris DPM MS Attending Provider Active Start: February 15, 2024 End: February 15, 2024Team MemberRelationshipSpecialtyStart DateEnd Date Back, MD [facility] [facility] PCP - GeneralInternal Medicine11/14/11Team MemberRelationshipSpecialtyStart Date End Date Back, MD Felipe [address] [place] [id number] PCP - GeneralInternal Medicine11/14/11Te MemberRelationshipSpecialtyStart Date End Date Back, MD Felipe [address] [place] [phone] PCP - GeneralInternal Medicine03/26/15Team MemberRelationshipSpecialtyStart Date End Date Back, MD Felipe [address] [place] [phone] PCP - GeneralInternal Medicine03/26/15Team MemberRelationshipSpecialtyStart Date End Date Back, MD Felipe [address] [facility], [facility]37 PCP - GeneralInternal Medicine11/14/11Team MemberRelationshipSpecialtyStart Date End Date Back, MD Alcides [address] [place] [phone] PCP - GeneralFamily Medicine12/08/24Team MemberRelationshipSpecialtyStart DateEnd Date Back, MD Alcides [address] [facility], [facility]37 PCP - GeneralFamily Medicine12/08/24Team MemberRelationshipSpecialtyStart DateEnd Date Back, MD Felipe [address] [facility], [place] [address] PCP - GeneralInternal Medicine2Team MemberRelationshipSpecialtyStart Date End Date Back, MD Alcides [address] [facility], [place] [address] PCP - GeneralFamily Medicine12/08/24Team MemberRelationshipSpecialtyStart DateEnd Date Back, MD Felipe [address] [facility], [place] [address] PCP - GeneralInternal Medicine11/14/11Team MemberRelationshipSpecialtyStart Date End Date Back, MD Alcides [address] [facility], [place] [address] PCP - GeneralFamily Medicine12/08/24Team MemberRelationshipSpecialtyStart DateEnd Date Back, MD Alcides [address] [facility], [place] [address] PCP - GeneralFamily Medicine12/08/24Team MemberRelationshipSpecialtyStart DateEnd Date Back, MD Alcides [address] [place] [address] PCP - GeneralFamily Medicine12/08/24Team MemberRelationshipSpecialtyStart DateEnd Date Back, MD Alcides [address] [place] [address] PCP - GeneralFamily Medicine12/08/24Team MemberRelationshipSpecialtyStart DateEnd Date Back, MD Felipe [address] [facility], [place] [address] PCP - GeneralInternal Medicine11/14/11Team MemberRelationshipSpecialtyStart Date End Date Back, MD Felipe [address] [facility], [place] [address] PCP - GeneralInternal Medicine11/14/11Team MemberRelationshipSpecialtyStart Date End Date Back, MD Alcides [address] [facility], [place] [address] PCP - GeneralFamily Medicine12/08/24Team MemberRelationshipSpecialtyStart DateEnd Date Back, MD Felipe [address] [facility], [place] [address] PCP - GeneralInternal Medicine11/14/11Team MemberRelationshipSpecialtyStart Date End Date Back, MD Alcides [address] [place] [address] PCP - GeneralFamily Medicine12/08/24Team MemberRelationshipSpecialtyStart DateEnd Date Back, MD Alcides [address] [place] [address] PCP - GeneralFamily Medicine12/08/24Team MemberRelationshipSpecialtyStart DateEnd Date Back, MD Felipe [address] [place] [address] PCP - GeneralInternal Medicine11/14/11Team MemberRelationshipSpecialtyStart Date End Date Alcides Adam MD [address] [place] [address] PCP - GeneralFamily Medicine12/08/24 Goals (unrecognized section [...] BE BASED ON THE PRIMARY CLINICAL RECORDS. [employer] [facility]. provides no warranty or guarantee of the accuracy or completeness of information in this document.
== END 2025-10-03 10:38 | disposition home or self-care (01) ==
LOC: WC 10:37
PROVIDERS: PCP Internal Medicine; Visit Provider Physician Assistant
DX: E11.621 Type 2 diabetes mellitus with foot ulcer (principal); L97.422 Non-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 with fat layer exposed; L97.515 Non-pressure chronic ulcer of other part of right foot with muscle involvement without evidence of necrosis
CPT/HCPCS: G0463